=== PATIENT | female | born 1980 | race Hispanic/Latino ===

== ENCOUNTER 2017-09-09 00:33 | Observation (INO) | payer OTHER ==
--- OUTSIDE RECORDS SUMMARY | 2017-09-09 00:37 | XMS REPORT ---
:1980 [facility] Address [address] [place] [address] Care Team Providers Name Role Phone HAWA BHAKTA Unavailable Unavailable Problems This patient has no known problems. Allergies, Adverse Reactions, Alerts This patient has no known allergies or adverse reactions. Medications This patient has no known medications. Results Test Description Test Time Test Comments Text Results Atomic Results Result Comments HERPES VIRUS ANTIBODY, IGM 2017-01-11 21:46:00 Test Item Value Reference Range Comments HERPES VIRUS IGM (BEAKER) (test yzzf=4124) Negative SEE ATTACHMENT BLOOD [id number] 06:00:00 Test Item Value Reference Range Comments CULTURE (BEAKER) (test jkme=9164) No growth in 5 days BLOOD [id number] 06:00:00 Test Item Value Reference Range Comments CULTURE (BEAKER) (test ijyc=3601) No growth in 5 days POCT-GLUCOSE [id number] 12:11:00 Test Item Value Reference Range Comments POC-GLUCOSE METER (BEAKER) 154 mg/dL 70-110 TESTED AT [address] (test zcte=7281) [facility] [address] POCT-GLUCOSE [id number] 07:53:00 Test Item Value Reference Range Comments POC-GLUCOSE METER (BEAKER) 87 mg/dL 70-110 TESTED AT [address] (test hohr=8308) [facility] [address] POCT-GLUCOSE [id number] 06:49:00 Test Item Value Reference Range Comments POC-GLUCOSE METER (BEAKER) 79 mg/dL 70-110 TESTED AT [address] (test lyjy=4449) [facility] [address] COMPREHENSIVE METABOLIC [id number] 06:15:00 Test Item Value Reference Range Comments TOTAL PROTEIN (BEAKER) 5.1 gm/dL 6.0-8.3 (test uhhi=803) ALBUMIN (BEAKER) (test 2.2 g/dL 3.5-5.0 csle=7859) ALKALINE PHOSPHATASE 78 U/L 40-150 (BEAKER) (test fvpj=305) BILIRUBIN TOTAL (BEAKER) 1.1 mg/dL 0.2-1.2 (test wedq=430) SODIUM (BEAKER) (test 142 meq/L 136-145 iuxx=677) POTASSIUM (BEAKER) (test 3.6 meq/L 3.5-5.1 edvf=289) CHLORIDE (BEAKER) (test 106 meq/L 98-107 xgqn=764) CO2 (BEAKER) (test 27 meq/L 22-29 odkz=681) BLOOD UREA NITROGEN 29 mg/dL 7-21 (BEAKER) (test wega=660) CREATININE (BEAKER) (test 2.70 mg/dL 0.57-1.25 nnuq=429) GLUCOSE RANDOM (BEAKER) 79 mg/dL 70-105 (test xbfk=494) CALCIUM (BEAKER) (test 8.2 mg/dL 8.4-10.2 zsjk=731) AST (SGOT) (BEAKER) (test 256 U/L 5-34 mpoe=471) ALT (SGPT) (BEAKER) (test 513 U/L 6-55 brgj=014) EGFR (BEAKER) (test 20 mL/min/1.73 sq m ESTIMATED GFR IS NOT qbzu=7112) ACCURATE CREATININE CLEARANCE IN PREDICTING GLOMERULAR FILTRATION RATE. ESTIMATED GFR IS NOT APPLICABLE FOR DIALYSIS PATIENTS. [id number] 06:11:00 Test Item Value Reference Range Comments MAGNESIUM (BEAKER) (test smat=946) 2.1 mg/dL 1.6-2.6 HEPATIC FUNCTION [id number] 06:11:00 Test Item Value Reference Range Comments TOTAL PROTEIN (BEAKER) (test bczj=642) 5.1 gm/dL 6.0-8.3 ALBUMIN (BEAKER) (test kgzl=7807) 2.2 g/dL 3.5-5.0 BILIRUBIN TOTAL (BEAKER) (test iafh=321) 1.1 mg/dL 0.2-1.2 BILIRUBIN DIRECT (BEAKER) (test eymo=677) 0.7 mg/dL 0.1-0.5 ALKALINE PHOSPHATASE (BEAKER) (test ejfo=966) 78 U/L 40-150 AST (SGOT) (BEAKER) (test sveg=646) 256 U/L 5-34 ALT (SGPT) (BEAKER) (test gsbv=717) 513 U/L 6-55 [id number] 05:30:00 Test Item Value Reference Range Comments FIBRINOGEN LEVEL (BEAKER) (test dnfd=173) 368 mg/dl 225-434 [id number] 05:30:00 Test Item Value Reference Range Comments PARTIAL THROMBOPLASTIN TIME (BEAKER) (test 42.2 seconds 22.5-36.0 llur=478) PROTHROMBIN [id number] 05:29:00 Test Item Value Reference Range Comments PROTIME (BEAKER) (test oajm=373) 14.8 seconds 11.7-14.7 INR (BEAKER) (test utcr=592) 1.2 <=5.9 RECOMMENDED COUMADIN/WARFARIN INR THERAPY RANGESSTANDARD DOSE: 2.0 - 3.0 Includes: PROPHYLAXIS forvenous thrombosis, systemic embolization; TREATMENT for venous thrombosis and/or pulmonary embolus.HIGH RISK: Target INR is 2.5-3.5 for patients with mechanical heart valves.POCT-GLUCOSE [id number] 21:09:00 Test Item Value Reference Range Comments POC-GLUCOSE METER (BEAKER) 178 mg/dL 70-110 TESTED AT [address] (test wcsw=2286) [place] [address] POCT-GLUCOSE [id number] 17:18:00 Test Item Value Reference Range Comments POC-GLUCOSE METER (BEAKER) 178 mg/dL 70-110 TESTED AT [address] (test wvcd=9392) [place] [address] POCT-GLUCOSE [id number] 13:48:00 Test Item Value Reference Range Comments POC-GLUCOSE METER (BEAKER) 150 mg/dL 70-110 TESTED AT [address] (test tbqa=9086) [place] [address] FACTOR 5 ACTIVITY (BLEEDING RISK)2017-01-06 10:04:00 Test Item Value Reference Range Comments FACTOR V ACTIVITY (BEAKER) (test flez=420) 90.0 % 60.0-150.0 Effective 10/24/2013: Reference Range Change-Adult onlyNew: 60.0-150.0 Previous : 50.0-150.0CYTOMEGALOVIRUS ANTIBODY, [id number] 09:42:00 Test Item Value Reference Range Comments CYTOMEGALOVIRUS IGM ANTIBODY (BEAKER) (test Negative qfwr=561) HERPES VIRUS ANTIBODY, [id number] 08:59:00 Test Item Value Reference Range Comments HERPES VIRUS IGG (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 euts=3438) CYTOMEGALOVIRUS ANTIBODY, [id number] 08:59:00 Test Item Value Reference Range Comments CYTOMEGALOVIRUS IGG ANTIBODY (BEAKER) (test Positive diwh=915) EBV-VCA ANTIBODY, [id number] 08:59:00 Test Item Value Reference Range Comments JASE-WALL VCA IGG (BEAKER) (test alyu=748) Positive EBV-VCA ANTIBODY, [id number] 08:59:00 Test Item Value Reference Range Comments JASE-WALL VCA IGM (BEAKER) (test pjxl=757) Negative POCT-GLUCOSE [id number] 07:59:00 Test Item Value Reference Range Comments POC-GLUCOSE METER (BEAKER) 81 mg/dL 70-110 TESTED AT [facility] [address] [facility] (test bzcu=9438) [facility] [address] COMPREHENSIVE METABOLIC [id number] 06:23:00 Test Item Value Reference Range Comments TOTAL PROTEIN (BEAKER) 5.3 gm/dL 6.0-8.3 (test ndru=531) ALBUMIN (BEAKER) (test 2.4 g/dL 3.5-5.0 zfbo=3541) ALKALINE PHOSPHATASE 85 U/L 40-150 (BEAKER) (test zwoy=352) BILIRUBIN TOTAL (BEAKER) 1.5 mg/dL 0.2-1.2 (test upza=615) SODIUM (BEAKER) (test 142 meq/L 136-145 xxfz=203) POTASSIUM (BEAKER) (test 3.5 meq/L 3.5-5.1 oemb=669) CHLORIDE (BEAKER) (test 103 meq/L 98-107 mxpt=455) CO2 (BEAKER) (test 27 meq/L 22-29 fdxm=418) BLOOD UREA NITROGEN 30 mg/dL 7-21 (BEAKER) (test gjel=563) CREATININE (BEAKER) (test 3.00 mg/dL 0.57-1.25 psqq=621) GLUCOSE RANDOM (BEAKER) 99 mg/dL 70-105 (test hbsv=218) CALCIUM (BEAKER) (test 8.7 mg/dL 8.4-10.2 gwyr=542) AST (SGOT) (BEAKER) (test 364 U/L 5-34 ghlo=312) ALT (SGPT) (BEAKER) (test 779 U/L 6-55 zggk=711) EGFR (BEAKER) (test 18 mL/min/1.73 sq m ESTIMATED GFR IS NOT slzf=1655) ACCURATE CREATININE CLEARANCE IN PREDICTING GLOMERULAR FILTRATION RATE. ESTIMATED GFR IS NOT APPLICABLE FOR DIALYSIS PATIENTS. [id number] 06:17:00 Test Item Value Reference Range Comments MAGNESIUM (BEAKER) (test dctu=247) 1.8 mg/dL 1.6-2.6 HEPATIC FUNCTION [id number] 06:17:00 Test Item Value Reference Range Comments TOTAL PROTEIN (BEAKER) (test fsmu=837) 5.3 gm/dL 6.0-8.3 ALBUMIN (BEAKER) (test nyya=3340) 2.4 g/dL 3.5-5.0 BILIRUBIN TOTAL (BEAKER) (test nlnl=738) 1.5 mg/dL 0.2-1.2 BILIRUBIN DIRECT (BEAKER) (test syks=191) 1.0 mg/dL 0.1-0.5 ALKALINE PHOSPHATASE (BEAKER) (test qkjs=532) 85 U/L 40-150 AST (SGOT) (BEAKER) (test bqei=187) 364 U/L 5-34 ALT (SGPT) (BEAKER) (test rucs=366) 779 U/L 6-55 [id number] 06:00:00 Test Item Value Reference Range Comments FIBRINOGEN LEVEL (BEAKER) (test gnun=388) 390 mg/dl 225-434 [id number] 06:00:00 Test Item Value Reference Range Comments PARTIAL THROMBOPLASTIN TIME (BEAKER) (test 40.2 seconds 22.5-36.0 ygkn=099) PROTHROMBIN [id number] 05:59:00 Test Item Value Reference Range Comments PROTIME (BEAKER) (test kyvx=278) 14.6 seconds 11.7-14.7 INR (BEAKER) (test hylo=990) 1.2 <=5.9 RECOMMENDED COUMADIN/WARFARIN INR THERAPY RANGESSTANDARD DOSE: 2.0 - 3.0 Includes: PROPHYLAXIS forvenous thrombosis, systemic embolization; TREATMENT for venous thrombosis and/or pulmonary embolus.HIGH RISK: Target INR is 2.5-3.5 for patients with mechanical heart valves.POCT-GLUCOSE [id number] 21:46:00 Test Item Value Reference Range Comments POC-GLUCOSE METER (BEAKER) 153 mg/dL 70-110 TESTED AT [address] (test xydy=0908) [facility] [address] POCT-GLUCOSE [id number] 18:47:00 Test Item Value Reference Range Comments POC-GLUCOSE METER (BEAKER) 181 mg/dL 70-110 TESTED AT [address] (test ngdj=5829) [place] [id number] POCT-GLUCOSE [id number] 12:40:00 Test Item Value Reference Range Comments POC-GLUCOSE METER (BEAKER) 178 mg/dL 70-110 TESTED AT [address] (test vurn=9417) [facility] [address] POCT-GLUCOSE [id number] 07:51:00 Test Item Value Reference Range Comments POC-GLUCOSE METER (BEAKER) 166 mg/dL 70-110 TESTED AT [address] (test jfmx=0274) [facility] [address] COMPREHENSIVE METABOLIC [id number] 03:26:00 Test Item Value Reference Range Comments TOTAL PROTEIN (BEAKER) 5.2 gm/dL 6.0-8.3 (test rozj=037) ALBUMIN (BEAKER) (test 2.3 g/dL 3.5-5.0 btit=8550) ALKALINE PHOSPHATASE 72 U/L 40-150 (BEAKER) (test sjjq=227) BILIRUBIN TOTAL (BEAKER) 2.0 mg/dL 0.2-1.2 (test kcwf=625) SODIUM (BEAKER) (test 140 meq/L 136-145 gctz=387) POTASSIUM (BEAKER) (test 3.3 meq/L 3.5-5.1 atvs=149) CHLORIDE (BEAKER) (test 99 meq/L 98-107 ehib=778) CO2 (BEAKER) (test 29 meq/L 22-29 rcqm=291) BLOOD UREA NITROGEN 35 mg/dL 7-21 (BEAKER) (test ylcj=392) CREATININE (BEAKER) (test 3.44 mg/dL 0.57-1.25 nuko=062) GLUCOSE RANDOM (BEAKER) 151 mg/dL 70-105 (test lcza=300) CALCIUM (BEAKER) (test 8.6 mg/dL 8.4-10.2 xrmo=176) AST (SGOT) (BEAKER) (test 506 U/L 5-34 cmbe=927) ALT (SGPT) (BEAKER) (test 1009 U/L 6-55 vrrw=436) EGFR (BEAKER) (test 15 mL/min/1.73 sq m ESTIMATED GFR IS NOT drnn=4255) ACCURATE CREATININE CLEARANCE IN PREDICTING GLOMERULAR FILTRATION RATE. ESTIMATED GFR IS NOT APPLICABLE FOR DIALYSIS PATIENTS. [id number] 03:22:00 Test Item Value Reference Range Comments MAGNESIUM (BEAKER) (test ypib=884) 1.4 mg/dL 1.6-2.6 HEPATIC FUNCTION [id number] 03:22:00 Test Item Value Reference Range Comments TOTAL PROTEIN (BEAKER) (test vmzu=048) 5.2 gm/dL 6.0-8.3 ALBUMIN (BEAKER) (test gpip=3853) 2.3 g/dL 3.5-5.0 BILIRUBIN TOTAL (BEAKER) (test epeu=798) 2.0 mg/dL 0.2-1.2 BILIRUBIN DIRECT (BEAKER) (test qzlp=040) 1.3 mg/dL 0.1-0.5 ALKALINE PHOSPHATASE (BEAKER) (test tjyz=233) 72 U/L 40-150 AST (SGOT) (BEAKER) (test ernn=963) 506 U/L 5-34 ALT (SGPT) (BEAKER) (test wcnn=158) 1009 U/L 6-55 [id number] 03:12:00 Test Item Value Reference Range Comments AMMONIA (BEAKER) (test chlc=038) 29 mol/L 18-72 [id number] 03:10:00 Test Item Value Reference Range Comments PARTIAL THROMBOPLASTIN TIME (BEAKER) (test 42.3 seconds 22.5-36.0 eqcb=207) PROTHROMBIN [id number] 03:09:00 Test Item Value Reference Range Comments PROTIME (BEAKER) (test fucx=325) 16.4 seconds 11.7-14.7 INR (BEAKER) (test cobo=636) 1.3 <=5.9 RECOMMENDED COUMADIN/WARFARIN INR THERAPY RANGESSTANDARD DOSE: 2.0 - 3.0 Includes: PROPHYLAXIS forvenous thrombosis, systemic embolization; TREATMENT for venous thrombosis and/or pulmonary embolus.HIGH RISK: Target INR is 2.5-3.5 for patients with mechanical heart valves.[id number] 03:09:00 Test Item Value Reference Range Comments FIBRINOGEN LEVEL (BEAKER) (test fuov=731) 413 mg/dl 225-434 CBC W/PLT COUNT & AUTO [id number] 03:09:00 Test Item Value Reference Range Comments WHITE BLOOD CELL COUNT (BEAKER) (test uclz=361) 2.9 K/ L 4.0-10.0 RED BLOOD CELL COUNT (BEAKER) (test ceea=227) 3.10 M/ L 4.00-5.00 HEMOGLOBIN (BEAKER) (test kqpm=128) 9.5 GM/DL 12.0-15.0 HEMATOCRIT (BEAKER) (test oovg=367) 29.2 % 36.0-45.0 MEAN CORPUSCULAR VOLUME (BEAKER) (test elrc=163) 94.4 fL 82.0-99.0 MEAN CORPUSCULAR HEMOGLOBIN (BEAKER) (test 30.8 pg 27.0-33.0 eqrw=859) MEAN CORPUSCULAR HEMOGLOBIN CONC (BEAKER) (test 32.6 GM/DL 32.0-36.0 hqax=324) RED CELL DISTRIBUTION WIDTH (BEAKER) (test 15.2 % 10.3-14.2 rlbl=613) PLATELET COUNT (BEAKER) (test krxf=596) 118 K/CU MM 150-430 MEAN PLATELET VOLUME (BEAKER) (test uwjc=735) 9.2 fL 6.5-10.5 NUCLEATED RED BLOOD CELLS (BEAKER) (test 0 /100 WBC 0-0 hzck=550) NEUTROPHILS RELATIVE PERCENT (BEAKER) (test 59 % kzpb=291) LYMPHOCYTES RELATIVE PERCENT (BEAKER) (test 27 % ozah=205) MONOCYTES RELATIVE PERCENT (BEAKER) (test 10 % xwcf=656) EOSINOPHILS RELATIVE PERCENT (BEAKER) (test 4 % fnrw=239) BASOPHILS RELATIVE PERCENT (BEAKER) (test 1 % kdzz=835) NEUTROPHILS ABSOLUTE COUNT (BEAKER) (test 1.71 K/ L 1.80-8.00 jrcz=942) LYMPHOCYTES ABSOLUTE COUNT (BEAKER) (test 0.78 K/ L 1.48-4.50 rplc=358) MONOCYTES ABSOLUTE COUNT (BEAKER) (test 0.29 K/ L 0.00-1.30 bzsv=082) EOSINOPHILS ABSOLUTE COUNT (BEAKER) (test 0.11 K/ L 0.00-0.50 nizl=023) BASOPHILS ABSOLUTE COUNT (BEAKER) (test 0.02 K/ L 0.00-0.20 tvua=108) 0.00POCT-GLUCOSE [id number] 22:33:00 Test Item Value Reference Range Comments POC-GLUCOSE METER (BEAKER) 230 mg/dL 70-110 TESTED AT [address] (test dujs=1973) [place] [id number] POCT-GLUCOSE [id number] 18:17:00 Test Item Value Reference Range Comments POC-GLUCOSE METER (BEAKER) 222 mg/dL 70-110 TESTED AT [address] (test rsyu=9873) [place] [id number] COMPREHENSIVE METABOLIC [id number] 16:59:00 Test Item Value Reference Range Comments TOTAL PROTEIN (BEAKER) 4.9 gm/dL 6.0-8.3 (test nicg=487) ALBUMIN (BEAKER) (test 2.2 g/dL 3.5-5.0 nlyp=9578) ALKALINE PHOSPHATASE 71 U/L 40-150 (BEAKER) (test tlda=629) BILIRUBIN TOTAL (BEAKER) 2.2 mg/dL 0.2-1.2 (test vznz=604) SODIUM (BEAKER) (test 140 meq/L 136-145 sasg=288) POTASSIUM (BEAKER) (test 3.3 meq/L 3.5-5.1 rifi=083) CHLORIDE (BEAKER) (test 99 meq/L 98-107 brgk=614) CO2 (BEAKER) (test 28 meq/L 22-29 hbrn=990) BLOOD UREA NITROGEN 36 mg/dL 7-21 (BEAKER) (test bogq=474) CREATININE (BEAKER) (test 3.57 mg/dL 0.57-1.25 fkqt=864) GLUCOSE RANDOM (BEAKER) 199 mg/dL 70-105 (test hwva=348) CALCIUM (BEAKER) (test 8.5 mg/dL 8.4-10.2 lhho=696) AST (SGOT) (BEAKER) (test 640 U/L 5-34 fayx=945) ALT (SGPT) (BEAKER) (test 1071 U/L 6-55 bowg=114) EGFR (BEAKER) (test 15 mL/min/1.73 sq m ESTIMATED GFR IS NOT iazk=3337) ACCURATE CREATININE CLEARANCE IN PREDICTING GLOMERULAR FILTRATION RATE. ESTIMATED GFR IS NOT APPLICABLE FOR DIALYSIS PATIENTS. PERIPHERAL BLOOD SMEAR - PATHOLOGIST [id number] 15:30:00 Test Item Value Reference Range Comments RBC MORPHOLOGY (BEAKER) (test Polychromasia wpzw=8856) RBC MORPHOLOGY (BEAKER) (test Anisocytosis fasi=81357) PERIPHERAL SMR REVIEW Cell counts confirmed (BEAKER) (test odlo=5374) [id number] Joesfina Lara M.D. (BEAKER) (test wrai=2592) (electronic signature) PROTHROMBIN [id number] 15:12:00 Test Item Value Reference Range Comments PROTIME (BEAKER) (test ypha=832) 16.6 seconds 11.7-14.7 INR (BEAKER) (test wjtj=250) 1.4 <=5.9 RECOMMENDED COUMADIN/WARFARIN INR THERAPY RANGESSTANDARD DOSE: 2.0 - 3.0 Includes: PROPHYLAXIS forvenous thrombosis, systemic embolization; TREATMENT for venous thrombosis and/or pulmonary embolus.HIGH RISK: Target INR is 2.5-3.5 for patients with mechanical heart valves.ANTI-NUCLEAR ANTIBODY (IVETTE)2017-01-04 14:32:00 Test Item Value Reference Range Comments ANTI-NUCLEAR ANTIBODY (IVETTE) (BEAKER) (test Negative Negative kqol=628) POCT-GLUCOSE [id number] 12:47:00 Test Item Value Reference Range Comments POC-GLUCOSE METER (BEAKER) 212 mg/dL 70-110 TESTED AT [facility] [address] [place] [address] (test lzbw=6318) [facility] [address] [id number] 12:34:00 Test Item Value Reference Range Comments RPR SCREEN (Kasumi-sou) (test qnyq=751) Nonreactive Nonreactive CLOSTRIDIUM DIFFICILE TOXIN [id number] 10:12:00 Test Item Value Reference Range Comments CLOSTRIDIUM DIFFICILE TOXIN, PCR (Kasumi-sou) (test Not Detected Not Detected ccsz=3234) This qualitative real-time polymerase chain reaction assay detects the tcdB gene , encoded on the C.difficile pathogenicity locus (PaLoc). The product of tcdB, toxin B, is a cytotoxin essential for causing C.difficile-associated disease ( CDAD) and is found in virtually all toxigenic C.difficile.This assay is performed for patients suspected of having either community-acquired or nosocomial CDAD. Accordingly, only symptomatic patients should be tested and formed stools will be rejected unless ileus is present (i.e., specified when ordering). Patients may be colonized with toxigenic C.difficile strains not causing active disease; therefore, clinical correlation is needed when deciding how to manage patients with a positive test result.The assay has not been validated as a test of cure as amplifiable nucleic acid may persist after effective treatment; therefore, follow-up testing of a positive result is not recommended.FACTOR 5 ACTIVITY (BLEEDING RISK)2017-01-04 09:15:00 Test Item Value Reference Range Comments FACTOR V ACTIVITY (BEAKER) (test ukaz=767) 86.0 % 60.0-150.0 Effective 10/24/2013: Reference Range Change-Adult onlyNew: 60.0-150.0 Previous : 50.0-150.0FACTOR 5 ACTIVITY (BLEEDING RISK)2017-01-04 09:13:00 Test Item Value Reference Range Comments FACTOR V ACTIVITY (BEAKER) (test pdqk=852) 56.0 % 60.0-150.0 Effective 10/24/2013: Reference Range Change-Adult onlyNew: 60.0-150.0 Previous : 50.0-150.0POCT-GLUCOSE [id number] 06:40:00 Test Item Value Reference Range Comments POC-GLUCOSE METER (VideostirAKER) 167 mg/dL 70-110 TESTED AT [facility] [address] [facility] (test dmqu=0741) [facility] [address] COMPREHENSIVE METABOLIC [id number] 04:08:00 Test Item Value Reference Range Comments TOTAL PROTEIN (BEAKER) 4.7 gm/dL 6.0-8.3 (test peid=761) ALBUMIN (BEAKER) (test 2.1 g/dL 3.5-5.0 apcd=4159) ALKALINE PHOSPHATASE 71 U/L 40-150 (BEAKER) (test syjg=850) BILIRUBIN TOTAL (BEAKER) 2.6 mg/dL 0.2-1.2 (test pedq=605) SODIUM (BEAKER) (test 140 meq/L 136-145 tnfv=775) POTASSIUM (BEAKER) (test 2.8 meq/L 3.5-5.1 cnzc=667) CHLORIDE (BEAKER) (test 95 meq/L 98-107 qttm=564) CO2 (BEAKER) (test 31 meq/L 22-29 srqi=547) BLOOD UREA NITROGEN 39 mg/dL 7-21 (BEAKER) (test gsve=595) CREATININE (BEAKER) (test 4.10 mg/dL 0.57-1.25 pscg=487) GLUCOSE RANDOM (BEAKER) 155 mg/dL 70-105 (test lhdl=653) CALCIUM (BEAKER) (test 8.2 mg/dL 8.4-10.2 axxz=529) AST (SGOT) (BEAKER) (test 846 U/L 5-34 zsvx=539) ALT (SGPT) (BEAKER) (test 1091 U/L 6-55 ttsd=697) EGFR (BEAKER) (test mL/min/1.73 sq m INSUFFICIENT CLINICAL DATA kesi=9225) TO CALCULATE ESTIMATED GFR. Specimen slightly ictericHEPATIC FUNCTION [id number] 04:06:00 Test Item Value Reference Range Comments TOTAL PROTEIN (BEAKER) (test qits=245) 4.7 gm/dL 6.0-8.3 ALBUMIN (BEAKER) (test cuzc=7208) 2.1 g/dL 3.5-5.0 BILIRUBIN TOTAL (BEAKER) (test eqhe=686) 2.6 mg/dL 0.2-1.2 BILIRUBIN DIRECT (BEAKER) (test igpb=450) 1.8 mg/dL 0.1-0.5 ALKALINE PHOSPHATASE (BEAKER) (test qfts=427) 71 U/L 40-150 AST (SGOT) (BEAKER) (test ovtw=856) 846 U/L 5-34 ALT (SGPT) (BEAKER) (test bzei=100) 1091 U/L 6-55 Specimen slightly [id number] 04:01:00 Test Item Value Reference Range Comments FIBRINOGEN LEVEL (BEAKER) (test cfpj=638) 379 mg/dl 225-434 [id number] 04:01:00 Test Item Value Reference Range Comments PARTIAL THROMBOPLASTIN TIME (BEAKER) (test 40.7 seconds 22.5-36.0 cara=944) PROTHROMBIN [id number] 04:00:00 Test Item Value Reference Range Comments PROTIME (BEAKER) (test blcw=665) 18.7 seconds 11.7-14.7 INR (BEAKER) (test udsp=236) 1.6 <=5.9 RECOMMENDED COUMADIN/WARFARIN INR THERAPY RANGESSTANDARD DOSE: 2.0 - 3.0 Includes: PROPHYLAXIS forvenous thrombosis, systemic embolization; TREATMENT for venous thrombosis and/or pulmonary embolus.HIGH RISK: Target INR is 2.5-3.5 for patients with mechanical heart valves.CBC W/PLT COUNT & AUTO [id number] 03:56:00 Test Item Value Reference Range Comments WHITE BLOOD CELL COUNT (BEAKER) (test ujbc=114) 3.1 K/ L 4.0-10.0 RED BLOOD CELL COUNT (BEAKER) (test iftn=314) 2.85 M/ L 4.00-5.00 HEMOGLOBIN (BEAKER) (test xdjl=681) 8.8 GM/DL 12.0-15.0 HEMATOCRIT (BEAKER) (test dabr=612) 26.6 % 36.0-45.0 MEAN CORPUSCULAR VOLUME (BEAKER) (test rvxl=078) 93.4 fL 82.0-99.0 MEAN CORPUSCULAR HEMOGLOBIN (BEAKER) (test 30.9 pg 27.0-33.0 msji=883) MEAN CORPUSCULAR HEMOGLOBIN CONC (BEAKER) (test 33.0 GM/DL 32.0-36.0 gfap=565) RED CELL DISTRIBUTION WIDTH (BEAKER) (test 14.9 % 10.3-14.2 pqei=680) PLATELET COUNT (BEAKER) (test glnc=414) 98 K/CU MM 150-430 MEAN PLATELET VOLUME (BEAKER) (test jozg=931) 9.1 fL 6.5-10.5 NUCLEATED RED BLOOD CELLS (BEAKER) (test 0 /100 WBC 0-0 uilj=085) NEUTROPHILS RELATIVE PERCENT (BEAKER) (test 55 % syhj=591) LYMPHOCYTES RELATIVE PERCENT (BEAKER) (test 27 % bzyj=867) MONOCYTES RELATIVE PERCENT (BEAKER) (test 12 % dfzn=054) EOSINOPHILS RELATIVE PERCENT (BEAKER) (test 5 % erpz=998) BASOPHILS RELATIVE PERCENT (BEAKER) (test 1 % ocbj=811) NEUTROPHILS ABSOLUTE COUNT (BEAKER) (test 1.71 K/ L 1.80-8.00 hyzp=511) LYMPHOCYTES ABSOLUTE COUNT (BEAKER) (test 0.83 K/ L 1.48-4.50 xqdi=105) MONOCYTES ABSOLUTE COUNT (BEAKER) (test mcad=962) 0.38 K/ L 0.00-1.30 EOSINOPHILS ABSOLUTE COUNT (BEAKER) (test 0.14 K/ L 0.00-0.50 dizg=322) BASOPHILS ABSOLUTE COUNT (BEAKER) (test akpz=570) 0.02 K/ L 0.00-0.20 0.00POCT-GLUCOSE [id number] 00:19:00 Test Item Value Reference Range Comments POC-GLUCOSE METER (BEAKER) 159 mg/dL 70-110 TESTED AT [address] (test xgme=1870) [place] [id number] POCT-GLUCOSE [id number] 18:56:00 Test Item Value Reference Range Comments POC-GLUCOSE METER (BEAKER) 192 mg/dL 70-110 TESTED AT [address] (test jwuh=4659) [place] [id number] COMPREHENSIVE METABOLIC [id number] 16:55:00 Test Item Value Reference Range Comments TOTAL PROTEIN (BEAKER) 4.5 gm/dL 6.0-8.3 (test dgtn=437) ALBUMIN (BEAKER) (test 2.0 g/dL 3.5-5.0 hzwk=4857) ALKALINE PHOSPHATASE 74 U/L 40-150 (BEAKER) (test rfnf=904) BILIRUBIN TOTAL (BEAKER) 2.9 mg/dL 0.2-1.2 (test tdlp=824) SODIUM (BEAKER) (test 142 meq/L 136-145 qycs=863) POTASSIUM (BEAKER) (test 3.0 meq/L 3.5-5.1 uipf=218) CHLORIDE (BEAKER) (test 95 meq/L 98-107 egzl=693) CO2 (BEAKER) (test 33 meq/L 22-29 ohdv=369) BLOOD UREA NITROGEN 45 mg/dL 7-21 (BEAKER) (test vixr=730) CREATININE (BEAKER) (test 4.87 mg/dL 0.57-1.25 nypx=332) GLUCOSE RANDOM (BEAKER) 177 mg/dL 70-105 (test vfbx=397) CALCIUM (BEAKER) (test 8.4 mg/dL 8.4-10.2 xqxv=758) AST (SGOT) (BEAKER) (test 1283 U/L 5-34 tioj=905) ALT (SGPT) (BEAKER) (test 1314 U/L 6-55 zxyw=962) EGFR (BEAKER) (test mL/min/1.73 sq m INSUFFICIENT CLINICAL DATA izmt=7998) TO CALCULATE ESTIMATED GFR. Specimen slightly ictericPROTHROMBIN [id number] 16:37:00 Test Item Value Reference Range Comments PROTIME (BEAKER) (test iwbs=772) 20.9 seconds 11.7-14.7 INR (BEAKER) (test xzgu=289) 1.8 <=5.9 RECOMMENDED COUMADIN/WARFARIN INR THERAPY RANGESSTANDARD DOSE: 2.0 - 3.0 Includes: PROPHYLAXIS forvenous thrombosis, systemic embolization; TREATMENT for venous thrombosis and/or pulmonary embolus.HIGH RISK: Target INR is 2.5-3.5 for patients with mechanical heart valves.HEPATITIS B SURFACE [id number] 14:05:00 Test Item Value Reference Range Comments HEPATITIS B SURFACE ANTIBODY (BEAKER) (test < mIU/mL <8.0 mimj=956) HEPATITIS B CORE ANTIBODY, [id number] 13:43:00 Test Item Value Reference Range Comments HEPATITIS B CORE TOTAL ANTIBODY (BEAKER) (test Nonreactive Nonreactive tkcy=371) BLOOD GAS, [id number] 13:35:00 Test Item Value Reference Range Comments PH ARTERIAL (BEAKER) (test znhn=663) 7.44 7.35-7.45 PCO2 ARTERIAL (BEAKER) (test uwuu=889) 55 mmHg 35-45 PO2 ARTERIAL (BEAKER) (test qwys=485) 99 mmHg 80-90 O2 SATURATION ARTERIAL (BEAKER) (test awrh=168) 97.4 % 96.0-97.0 HCO3 ARTERIAL (BEAKER) (test fdff=938) 36 mmol/L 21-29 BASE EXCESS ARTERIAL (BEAKER) (test tqdd=805) 10.3 mmol/L -2.0-3.0 PATIENT TEMPERATURE (BEAKER) (test hoyh=1939) 37.5 C FIO2 (BEAKER) (test kuzt=7461) 28.0 % URINALYSIS W/ [id number] 13:16:00 Test Item Value Reference Range Comments COLOR (BEAKER) (test uzbo=977) Yellow CLARITY (BEAKER) (test exfg=098) Clear SPECIFIC GRAVITY UA (BEAKER) (test qseq=565) 1.013 1.001-1.035 PH UA (BEAKER) (test zweo=301) 6.0 5.0-8.0 PROTEIN UA (BEAKER) (test jyvc=772) 300 mg/dL Negative GLUCOSE UA (BEAKER) (test alft=170) 30 mg/dL Negative KETONES UA (BEAKER) (test fbwg=644) Trace Negative BILIRUBIN UA (BEAKER) (test mogg=752) Positive Negative BLOOD UA (BEAKER) (test jnmd=473) Moderate Negative NITRITE UA (BEAKER) (test pfwa=011) Negative Negative LEUKOCYTE ESTERASE UA (BEAKER) (test irpu=086) Moderate Negative UROBILINOGEN UA (BEAKER) (test hpht=016) 2.0 mg/dL 0.2-1.0 RBC UA (BEAKER) (test hacb=811) 2 /HPF WBC UA (BEAKER) (test gudn=004) 41 /HPF HYALINE CASTS (BEAKER) (test bpdf=315) 10 /LPF AMORPHOUS CRYSTALS (BEAKER) (test urbz=0814) Rare SOURCE(BEAKER) (test trum=1462) Urine, [place] VITAMIN D, 77-[id number] 13:14:00 Test Item Value Reference Range Comments VITAMIN D 25-OH (BEAKER) (test umyt=6913) < ng/mL 13.0-47.8 ALPHA FETOPROTEIN (AFP), TUMOR [id number] 13:06:00 Test Item Value Reference Range Comments ALPHA-FETOPROTEIN (BEAKER) (test vhmx=2993) < ng/mL <10.0 Effective 05/08/2014: Reference Range ChangeNew: <10.0 Previous: 0.0- 8.0HEMOGLOBIN [id number] 13:05:00 Test Item Value Reference Range Comments HEMOGLOBIN A1C (BEAKER) (test gphg=944) 7.6 % 4.3-6.1 CARCINOEMBRYONIC ANTIGEN (CEA)2017-01-03 12:59:00 Test Item Value Reference Range Comments CARCINOEMBRYONIC ANTIGEN (BEAKER) (test lrfv=256) 2.0 ng/mL 0.0-5.0 [id number] 12:59:00 Test Item Value Reference Range Comments FERRITIN (BEAKER) (test vnoi=899) 1841 ng/mL 5-275 Effective 05/08/2014: Reference Range ChangeNew: Male 5-275 Previous: Male 22-322 Female 5-275 Female [id number] 12:58:00 Test Item Value Reference Range Comments T4 TOTAL (BEAKER) (test fjcg=723) 4.5 ug/dL 4.9-11.7 [id number] 12:58:00 Test Item Value Reference Range Comments THYROID STIMULATING HORMONE (BEAKER) (test 1.79 uIU/mL 0.35-4.94 aaea=774) [id number] 12:58:00 Test Item Value Reference Range Comments T3 TOTAL (BEAKER) (test fpsl=702) 34 ng/dL 48-159 Effective 05/08/2014: Reference Range ChangeNew: 48-159 Previous: 60- 181CALCIUM, [id number] 12:47:00 Test Item Value Reference Range Comments CALCIUM IONIZED (BEAKER) (test oamg=571) 1.05 mmol/L 1.12-1.27 PH, BLOOD (BEAKER) (test hbrb=4174) 7.43 [id number] 12:42:00 Test Item Value Reference Range Comments TRANSFERRIN (BEAKER) (test sqit=234) 128 mg/dL 174-382 Specimen slightly ictericIRON, TIBC, % SAT. (WITHOUT FERRITIN)2017-01-03 12:42: 00 Test Item Value Reference Range Comments IRON (BEAKER) (test vxum=657) 59 ug/dL 40-160 TOTAL IRON BINDING CAPACITY (BEAKER) (test 160 ug/dL 250-450 ryfd=366) IRON % SATURATION (2) (BEAKER) (test yuzy=3172) 37 % 20-55 URIC [id number] 12:40:00 Test Item Value Reference Range Comments URIC ACID (BEAKER) (test hkcd=047) 16.0 mg/dL 2.6-7.2 Specimen slightly ictericLIPID [id number] 12:40:00 Test Item Value Reference Range Comments TRIGLYCERIDES (BEAKER) (test odek=433) 134 mg/dL CHOLESTEROL (BEAKER) (test osxn=600) 120 mg/dL HDL CHOLESTEROL (BEAKER) (test gvun=885) 7 mg/dL LDL CHOLESTEROL CALCULATED (BEAKER) (test 86 mg/dL lalk=069) Triglyceride Reference Range: Low Risk <150 Borderline 150- 199 High Risk 200-499 Very High Risk >=500Cholesterol Reference Range: Low Risk <200 Borderline 200-239 High Risk > 240HDL Cholesterol Reference Range: Low Risk >=60 High Risk <40LDL Cholesterol Reference Range: Optimal <100 Near Optimal 100-129 Borderline 130-159 High 160-189 Very High >=190 Specimen slightly ictericBILIRUBIN, [id number] 12:40:00 Test Item Value Reference Range Comments BILIRUBIN DIRECT (BEAKER) (test kxcb=399) 2.4 mg/dL 0.1-0.5 GAMMA GLUTAMYL TRANSFERASE (GGT)2017-01-03 12:40:00 Test Item Value Reference Range Comments GAMMA GLUTAMYL TRANSFERASE (BEAKER) (test ekuv=928) 53 U/L 9-64 Specimen slightly [id number] 12:39:00 Test Item Value Reference Range Comments ETHANOL (BEAKER) (test ggaz=589) < mg/dL <=10 SCREEN, [id number] 12:36:00 Test Item Value Reference Range Comments TEST URINE (BEAKER) (test kzyn=679) Negative POCT-GLUCOSE [id number] 12:34:00 Test Item Value Reference Range Comments POC-GLUCOSE METER (MADIE) 189 mg/dL 70-110 TESTED AT [facility] [address] (test rkcp=2148) [facility] [address] HIV-1 ANTIGEN WITH HIV-1/2 [id number] 11:58:00 Test Item Value Reference Range Comments HIV-1 ANTIGEN WITH HIV 1\T\2 ANTIBODY (2) Nonreactive Nonreactive (BEAKER) (test wcew=9260) TROPONIN [id number] 09:44:00 Test Item Value Reference Range Comments TROPONIN I (BEAKER) (test gook=039) 0.34 ng/mL 0.00-0.03 Effective 05/08/2014: Reference Range ChangeNew: 0.00-0.03 Previous 0.00- 0.15Troponin I (TnI) levels must be interpreted in the context of the presenting symptoms and the clinical findings. Elevated TnI levels indicate myocardial damage, but are not specific for ischemic heart disease. Elevated TnI levels are seen in patients with other cardiac conditions (including myocarditis and congestive heartfailure), and slight TnI elevations occur in patients with other conditions, including sepsis, renalfailure, acidosis, acute neurological disease, and persistent tachyarrhythmia.CREATINE KINASE (CK), TOTAL AND [id number] 09:43:00 Test Item Value Reference Range Comments CREATINE KINASE TOTAL (BEAKER) (test bpvz=324) 301 U/L 29-200 CREATINE KINASE-MB (BEAKER) (test heuz=853) 5.6 ng/mL 0.0-6.6 CREATINE KINASE-MB INDEX (BEAKER) (test qmlj=686) 1.9 % Effective 05/08/2014: CK-MB Reference Range ChangeNew: 0.0-6.6 Previous: 0.0- 4.9CK-MB Reference Range:<6.7 Normal6.7-10.0 Borderline>10.0 AbnormalACETAMINOPHEN [id number] 08:31:00 Test Item Value Reference Range Comments ACETAMINOPHEN LEVEL (BEAKER) (test wixy=335) < ug/mL 10.0-30.0 TROPONIN [id number] 05:53:00 Test Item Value Reference Range Comments TROPONIN I (BEAKER) (test fcml=176) 0.33 ng/mL 0.00-0.03 Effective 05/08/2014: Reference Range ChangeNew: 0.00-0.03 Previous 0.00- 0.15Troponin I (TnI) levels must be interpreted in the context of the presenting symptoms and the clinical findings. Elevated TnI levels indicate myocardial damage, but are not specific for ischemic heart disease. Elevated TnI levels are seen in patients with other cardiac conditions (including myocarditis and congestive heartfailure), and slight TnI elevations occur in patients with other conditions, including sepsis, renalfailure, acidosis, acute neurological disease, and persistent tachyarrhythmia.BASIC METABOLIC [id number] 05:53:00 Test Item Value Reference Range Comments SODIUM (BEAKER) (test 144 meq/L 136-145 lknj=897) POTASSIUM (BEAKER) (test 2.8 meq/L 3.5-5.1 gveg=312) CHLORIDE (BEAKER) (test 95 meq/L 98-107 eagi=522) CO2 (BEAKER) (test 35 meq/L 22-29 tmuh=018) BLOOD UREA NITROGEN 49 mg/dL 7-21 (BEAKER) (test fzih=151) CREATININE (BEAKER) (test 5.61 mg/dL 0.57-1.25 gbxq=287) GLUCOSE RANDOM (BEAKER) 138 mg/dL 70-105 (test krwd=476) CALCIUM (BEAKER) (test 8.2 mg/dL 8.4-10.2 bnky=607) EGFR (BEAKER) (test mL/min/1.73 sq m INSUFFICIENT CLINICAL DATA igjq=2621) TO CALCULATE ESTIMATED GFR. Specimen slightly [id number] 05:52:00 Test Item Value Reference Range Comments PHOSPHORUS (BEAKER) (test epia=702) 5.7 mg/dL 2.3-4.7 HEPATIC FUNCTION [id number] 05:52:00 Test Item Value Reference Range Comments TOTAL PROTEIN (BEAKER) (test mddo=896) 5.2 gm/dL 6.0-8.3 ALBUMIN (BEAKER) (test ixkd=8370) 2.3 g/dL 3.5-5.0 BILIRUBIN TOTAL (BEAKER) (test hbvk=027) 3.5 mg/dL 0.2-1.2 BILIRUBIN DIRECT (BEAKER) (test tcke=716) 2.6 mg/dL 0.1-0.5 ALKALINE PHOSPHATASE (BEAKER) (test frke=917) 81 U/L 40-150 AST (SGOT) (BEAKER) (test ccfu=312) 2190 U/L 5-34 ALT (SGPT) (BEAKER) (test bwsu=936) 1782 U/L 6-55 Specimen slightly ictericCREATINE KINASE (CK), TOTAL AND [id number] 05:52:00 Test Item Value Reference Range Comments CREATINE KINASE TOTAL (BEAKER) (test wpwc=873) 341 U/L 29-200 CREATINE KINASE-MB (BEAKER) (test jqen=227) 5.4 ng/mL 0.0-6.6 CREATINE KINASE-MB INDEX (BEAKER) (test ekps=914) 1.6 % Effective 05/08/2014: CK-MB Reference Range ChangeNew: 0.0-6.6 Previous: 0.0- 4.9CK-MB Reference Range:<6.7 Normal6.7-10.0 Borderline>10.0 AbnormalCBC W/PLT COUNT & AUTO [id number] 05:48:00 Test Item Value Reference Range Comments WHITE BLOOD CELL COUNT (BEAKER) (test xlsj=300) 4.1 K/ L 4.0-10.0 RED BLOOD CELL COUNT (BEAKER) (test nmtv=307) 3.29 M/ L 4.00-5.00 HEMOGLOBIN (BEAKER) (test zbcl=910) 10.0 GM/DL 12.0-15.0 HEMATOCRIT (BEAKER) (test iwwn=186) 30.7 % 36.0-45.0 MEAN CORPUSCULAR VOLUME (BEAKER) (test ihjp=731) 93.5 fL 82.0-99.0 MEAN CORPUSCULAR HEMOGLOBIN (BEAKER) (test 30.5 pg 27.0-33.0 qjda=859) MEAN CORPUSCULAR HEMOGLOBIN CONC (BEAKER) (test 32.6 GM/DL 32.0-36.0 ovip=562) RED CELL DISTRIBUTION WIDTH (BEAKER) (test 15.0 % 10.3-14.2 ptwy=241) PLATELET COUNT (BEAKER) (test fjma=753) 106 K/CU MM 150-430 MEAN PLATELET VOLUME (BEAKER) (test urdy=676) 9.6 fL 6.5-10.5 NUCLEATED RED BLOOD CELLS (BEAKER) (test 0 /100 WBC 0-0 ssua=924) NEUTROPHILS RELATIVE PERCENT (BEAKER) (test 66 % oiem=971) LYMPHOCYTES RELATIVE PERCENT (BEAKER) (test 24 % yexu=902) MONOCYTES RELATIVE PERCENT (BEAKER) (test 6 % plvx=536) EOSINOPHILS RELATIVE PERCENT (BEAKER) (test 3 % pnuh=851) BASOPHILS RELATIVE PERCENT (BEAKER) (test 0 % wknl=572) NEUTROPHILS ABSOLUTE COUNT (BEAKER) (test 2.74 K/ L 1.80-8.00 ivmk=678) LYMPHOCYTES ABSOLUTE COUNT (BEAKER) (test 1.00 K/ L 1.48-4.50 zymn=625) MONOCYTES ABSOLUTE COUNT (BEAKER) (test 0.26 K/ L 0.00-1.30 amzp=683) EOSINOPHILS ABSOLUTE COUNT (BEAKER) (test 0.13 K/ L 0.00-0.50 nucl=900) BASOPHILS ABSOLUTE COUNT (BEAKER) (test 0.01 K/ L 0.00-0.20 ditc=339) [id number] 05:09:00 Test Item Value Reference Range Comments FIBRINOGEN LEVEL (BEAKER) (test qtsx=358) 427 mg/dl 225-434 [id number] 05:09:00 Test Item Value Reference Range Comments PARTIAL THROMBOPLASTIN TIME (BEAKER) (test 36.2 seconds 22.5-36.0 bmkf=835) PROTHROMBIN [id number] 05:08:00 Test Item Value Reference Range Comments PROTIME (BEAKER) (test lkpa=327) 22.8 seconds 11.7-14.7 INR (BEAKER) (test eppg=372) 2.0 <=5.9 RECOMMENDED COUMADIN/WARFARIN INR THERAPY RANGESSTANDARD DOSE: 2.0 - 3.0 Includes: PROPHYLAXIS forvenous thrombosis, systemic embolization; TREATMENT for venous thrombosis and/or pulmonary embolus.HIGH RISK: Target INR is 2.5-3.5 for patients with mechanical heart valves.HEPATITIS PANEL, [id number] 03:40 :00 Test Item Value Reference Range Comments HEPATITIS A IGM ANTIBODY (BEAKER) (test Nonreactive Nonreactive fbrm=715) HEPATITIS B CORE IGM ANTIBODY (BEAKER) (test Nonreactive Nonreactive tlli=950) HEPATITIS C ANTIBODY (BEAKER) (test ifxi=260) Nonreactive Nonreactive HEPATITIS B SURFACE ANTIGEN (2) (BEAKER) (test Nonreactive Nonreactive aamc=1877) CREATININE, RANDOM [id number] 03:18:00 Test Item Value Reference Range Comments CREATININE URINE (BEAKER) (test bmmp=589) 118.7 mg/dL Reference Range: No NormalsSODIUM, RANDOM [id number] 03:18:00 Test Item Value Reference Range Comments SODIUM URINE (BEAKER) (test qgpi=896) 60 meq/L Reference Range: No NormalsUREA NITROGEN, RANDOM [id number] 03:18:00 Test Item Value Reference Range Comments UREA NITROGEN URINE (BEAKER) (test vhre=728) 303 mg/dL Reference Range: No [id number] 03:07:00 Test Item Value Reference Range Comments AMMONIA (BEAKER) (test zdus=545) 48 mol/L 18-72 [id number] 02:57:00 Test Item Value Reference Range Comments D-DIMER QUANTITATIVE (BEAKER) (test csxa=254) 18.03 MG/L FEU <0.50 Intended Use: The D-Dimer Assay can be used to aid in the diagnosis of Deep Vein Thrombosis (DVT) and Pulmonary Embolism Disease (PED).In patients with low pre-test probability, various studies concerning STA Liatest D-dimer test have reported that with a cutoff value of 0.50 MG/L FEU, the Negative Predictive Value (NPV) regarding the exclusion of thrombosis is within 95-100% range.URINALYSIS W/ REFLEX URINE [id number] 02:53:00 Test Item Value Reference Range Comments COLOR (BEAKER) (test bvul=541) Yellow CLARITY (BEAKER) (test twkv=097) Hazy SPECIFIC GRAVITY UA (BEAKER) (test xeuk=630) 1.012 1.001-1.035 PH UA (BEAKER) (test itto=347) 6.5 5.0-8.0 PROTEIN UA (BEAKER) (test tsqp=016) 300 mg/dL Negative GLUCOSE UA (BEAKER) (test layu=441) Negative Negative KETONES UA (BEAKER) (test rdkg=390) Negative Negative BILIRUBIN UA (BEAKER) (test fihe=752) Positive Negative BLOOD UA (BEAKER) (test gxyd=942) Moderate Negative NITRITE UA (BEAKER) (test mmxa=590) Negative Negative LEUKOCYTE ESTERASE UA (BEAKER) (test wgub=570) Large Negative UROBILINOGEN UA (BEAKER) (test gevf=964) 3.0 mg/dL 0.2-1.0 RBC UA (BEAKER) (test tfhw=512) 4 /HPF WBC UA (BEAKER) (test snwv=223) > /HPF BACTERIA (BEAKER) (test jwnw=615) Occasional MUCUS (BEAKER) (test wakz=0942) Rare SQUAMOUS EPITHELIAL (BEAKER) (test vxoy=933) 19 /HPF HYALINE CASTS (BEAKER) (test uoqr=916) 13 /LPF SOURCE(BEAKER) (test fyst=6011) [id number] 02:49:00 Test Item Value Reference Range Comments PARTIAL THROMBOPLASTIN TIME (BEAKER) (test 39.4 seconds 22.5-36.0 cxtw=046) PROTHROMBIN TIME/[id number] 02:48:00 Test Item Value Reference Range Comments PROTIME (BEAKER) (test bgfj=180) 22.0 seconds 11.7-14.7 INR (BEAKER) (test vqav=651) 1.9 <=5.9 RECOMMENDED COUMADIN/WARFARIN INR THERAPY RANGESSTANDARD DOSE: 2.0 - 3.0 Includes: PROPHYLAXIS forvenous thrombosis, systemic embolization; TREATMENT for venous thrombosis and/or pulmonary embolus.HIGH RISK: Target INR is 2.5-3.5 for patients with mechanical heart valves.[id number] 02:48:00 Test Item Value Reference Range Comments FIBRINOGEN LEVEL (BEAKER) (test tljp=413) 421 mg/dl 225-434 BLOOD GAS, [id number] 02:43:00 Test Item Value Reference Range Comments PH VENOUS (BEAKER) (test mkym=096) 7.46 7.32-7.42 PCO2 VENOUS (BEAKER) (test mtad=703) 53 mmHg 41-51 PO2 VENOUS (BEAKER) (test fisa=182) 83 mmHg 25-40 O2 SATURATION VENOUS (BEAKER) (test uekt=023) 96.5 % 40.0-70.0 HCO3 VENOUS (BEAKER) (test pzfk=787) 37 mmol/L 21-29 BASE EXCESS VENOUS (BEAKER) (test tarh=466) 11.7 mmol/L -2.0-3.0 PATIENT TEMPERATURE (BEAKER) (test xlon=7552) 37.0 C FIO2 (BEAKER) (test qupz=2751) 21.0 % CBC W/PLT COUNT & AUTO [id number] 02:43:00 Test Item Value Reference Range Comments WHITE BLOOD CELL COUNT (BEAKER) (test gerq=706) 4.4 K/ L 4.0-10.0 RED BLOOD CELL COUNT (BEAKER) (test odri=989) 3.13 M/ L 4.00-5.00 HEMOGLOBIN (BEAKER) (test codm=403) 9.8 GM/DL 12.0-15.0 HEMATOCRIT (BEAKER) (test zrpt=843) 29.0 % 36.0-45.0 MEAN CORPUSCULAR VOLUME (BEAKER) (test qsak=274) 92.9 fL 82.0-99.0 MEAN CORPUSCULAR HEMOGLOBIN (BEAKER) (test 31.3 pg 27.0-33.0 rnct=132) MEAN CORPUSCULAR HEMOGLOBIN CONC (BEAKER) (test 33.6 GM/DL 32.0-36.0 zqjh=365) RED CELL DISTRIBUTION WIDTH (BEAKER) (test 15.3 % 10.3-14.2 jhej=782) PLATELET COUNT (BEAKER) (test jeef=834) 113 K/CU MM 150-430 MEAN PLATELET VOLUME (BEAKER) (test lmue=529) 9.8 fL 6.5-10.5 NUCLEATED RED BLOOD CELLS (BEAKER) (test 0 /100 WBC 0-0 ajcu=008) NEUTROPHILS RELATIVE PERCENT (BEAKER) (test 61 % qudr=649) LYMPHOCYTES RELATIVE PERCENT (BEAKER) (test 23 % lpgo=143) MONOCYTES RELATIVE PERCENT (BEAKER) (test 11 % dqum=858) EOSINOPHILS RELATIVE PERCENT (BEAKER) (test 4 % fzub=084) BASOPHILS RELATIVE PERCENT (BEAKER) (test 1 % kgss=416) NEUTROPHILS ABSOLUTE COUNT (BEAKER) (test 2.65 K/ L 1.80-8.00 llfv=823) LYMPHOCYTES ABSOLUTE COUNT (BEAKER) (test 1.01 K/ L 1.48-4.50 metj=407) MONOCYTES ABSOLUTE COUNT (BEAKER) (test 0.48 K/ L 0.00-1.30 ktto=607) EOSINOPHILS ABSOLUTE COUNT (BEAKER) (test 0.19 K/ L 0.00-0.50 raya=535) BASOPHILS ABSOLUTE COUNT (BEAKER) (test 0.05 K/ L 0.00-0.20 kzno=793) 0.00LACTIC ACID, VENOUS, WHOLE [id number] 02:35:00 Test Item Value Reference Range Comments LACTATE BLOOD VENOUS (2) (BEAKER) (test 0.8 mmol/L 0.5-2.2 xjve=5271) Effective 10/23/2015: Units/Reference Range ChangeNew: 0.5-2.2 mmol/L Previous: 5 -20 mg/dLSpecimen slightly icteric
[2017-09-09] MEDS ORDERED: ONDANSETRON 4 MG/2 ML VIAL ONE (01:17)
[2017-09-09] MEDS ORDERED: PROMETHAZINE 25 MG/ML VIAL ONE (01:40)
[2017-09-09] MEDS ORDERED: MORPHINE 4 MG/ML SYR ONE ×2 (01:41→04:04)
[2017-09-09 01:49] LABS: Absolute Lymphocytes (CBC) 1.1 K/uL (0.7-4.9); Absolute Monocytes 0.3 K/uL (0.1-1.3); Absolute Neutrophil 6.4 K/uL (1.8-8.0); Basophils % 1.3 % (0-1.3); Eosinophils % 1.7 % (0-4.4); Hematocrit 27.9 % (36.0-45.0); Lymphocytes % 13.3 % (15.3-44.8); MCV 89.3 fL (80-100); MPV 10.7 fL (7.6-11.3); Monocytes % 4.2 % (3.3-12.3); RBC Red Blood Cell Count 3.12 M/uL (3.86-4.86)
[2017-09-09 01:57] LABS: Protime INR 0.94
[2017-09-09 02:00] LABS: Potassium 3.5 mEq/L (3.6-5.0)
[2017-09-09] MEDS ORDERED: PANTOPRAZOLE 40 MG INJ ONE (02:00)
[2017-09-09] MEDS ORDERED: HYDRALAZINE HCL 20 MG/ML VIAL ONE ×2 (02:00→03:22)
[2017-09-09 02:07] LABS: Albumin 2.6 g/dL (3.2-5.5); Bilirubin Direct 0.1 mg/dL (0-0.2); Bilirubin Total 0.8 mg/dL (0.3-1.2); Protein, Total 5.5 g/dL (6.0-8.3)
[2017-09-09 02:34] LABS: Magnesium 1.8 mg/dL (1.8-2.5)
[2017-09-09 03:11] LABS: CKMB Creatine Kinase MB 13.1 ng/ml (0.3-4.0)
--- NOTE | 2017-09-09 03:24 | ER ---
Nurse's Notes [facility] Name: Cathi Zaldivar Age: 36 yrs Sex: Female : 1980 Arrival Date: 09/09/2017 Time: 00:35 Bed 8 Private MD: Diagnosis: Essential (primary) hypertension;Unspecified kidney failure;Abdominal tenderness;Gastroparesis;Vomiting Presentation: 09/09 00:33 Presenting complaint: EMS states: upon arrival pt complaining of abd pain that started ea at 4 pm, describes pain as constant and sharp. Transition of care: patient was not received from another setting of care. Onset of symptoms was September 09, 2017. Care prior to arrival: None. 00:33 Method Of Arrival: EMS: [facility] ea 00:33 Acuity: JESSICA 3 ea Triage Assessment: 00:33 General: Appears uncomfortable, Behavior is crying, restless. Pain: Complains of pain ea in abdomen Pain currently is 10 out of 10 on a pain scale. Quality of pain is described as aching, sharp, Pain began 4 PM yesterday Is continuous. EENT: No signs and/or symptoms were reported regarding the EENT system. Neuro: Level of Consciousness is awake, alert, obeys commands, Oriented to person, place, time, situation. Cardiovascular: Patient's skin is warm and dry. Respiratory: Airway is patent Respiratory effort is even, unlabored, Respiratory pattern is regular, symmetrical. GI: Reports lower abdominal pain, upper abdominal pain, diarrhea, vomiting, since since four PM yesterday afternoon. 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 ea Historical: - Allergies: 00:44 ambien; ea 00:44 Lisinopril; ea 00:44 Nitrofurantoin Macrocrystal; ea 00:44 Codeine; ea 00:44 Prolixin; ea 00:44 PENICILLINS; ea - Home Meds: 00:44 amlodipine 10 mg tab 1 tab once daily [Active]; divalproex 500 mg Oral TbEC once daily ea [Active]; doxazosin 4 mg Oral tab twice a day [Active]; gabapentin 100 mg Oral cap as needed [Active]; hydralazine 50 mg Oral tab [Active]; Lantus 100 unit/mL Sub-Q soln as needed [Active]; metoprolol tartrate 25 mg Oral tab 1 tab 2 times per day [Active]; Novolog 100 unit/mL Sub-Q soln [Active]; pravastatin Oral [Active]; sertraline 50 mg Oral tab [Active]; Vitamin D3 5,000 unit Oral tab daily [Active]; Zofran (as hydrochloride) 4 mg Oral tab as needed [Active]; tramadol 50 mg Oral tab 1 tab PRN [Active]; - PMHx: 00:44 chronic kidney disease; cyclic vomiting syndrome; Diabetes - NIDDM; ENCEPHALOPATHY; ea Gastroparesis; liver failure; PERIPHERAL NEUROPATHY; - Immunization history:: Adult Immunizations up to date. - Social history:: Smoking status: Patient uses tobacco products, 6 cigarettes a day. - Family history:: not pertinent. Screenin:48 Abuse screen: Denies threats or abuse. Nutritional screening: No deficits noted. ea Tuberculosis screening: No symptoms or risk factors identified. Fall Risk None identified. Assessment: 00:53 General: Appears distressed, uncomfortable, Behavior is agitated, anxious, crying, ar4 restless. Pain: Complains of pain in abdomen; RUQ, LUQ, LLQ, RLQ, epigastric region, supra pubic region Pain does not radiate. Pain currently is 10 out of 10 on a pain scale. Quality of pain is described as sharp, stabbing, Pain began 1 day ago. Is continuous, Alleviated by nothing. Aggravated by increased activity, repositioning, weight bearing, Noted to be crying, grimacing, guarding, moaning, resistant to movement, restless, Also complains of nausea, vomiting. Neuro: Level of Consciousness is awake, alert, obeys commands, Oriented to person, place, time, situation, Developer Relations Manager are equal bilaterally Moves all extremities. Speech is normal, Facial symmetry appears normal, Pupils are PERRLA. Cardiovascular: Denies chest pain, shortness of breath, Heart tones S1 S2 Capillary refill < 3 seconds is brisk in right fingers Pulses are all present. Cardiovascular: Edema is 2+ to left midcalf, left ankle, left foot, left toes, right midcalf, right ankle, right foot and right toes pitting to left midcalf, left ankle, left foot, left toes, right midcalf, right ankle, right foot and right toes. Respiratory: Airway is patent Breath sounds are clear bilaterally. GI: Abdomen is round non-distended, Pt is actively vomiting bile, Bowel sounds present X 4 quads. Abd is soft X 4 quads Abdomen is tender to palpation X 4 quads. Guarding noted X 4 quads. Reports lower abdominal pain, upper abdominal pain, cramping, diarrhea, epigastric pain, intolerance of fluids, intolerance of food, nausea, vomiting, Pt reports, "I have had about 15-20 episodes of diarrhea and have thrown up too many times to count.". : No signs and/or symptoms were reported regarding the genitourinary system. EENT: No signs and/or symptoms were reported regarding the EENT system. Derm: Skin is intact, Skin is dry, cool to touch at bilateral LE and feet Skin is normal, Skin temperature is warm. Derm:. Musculoskeletal: Circulation, motion, and sensation intact. 01:53 Reassessment: Patient and/or family updated on plan of care and expected duration. Pain ea level reassessed. Patient is alert, oriented x 3, equal unlabored respirations, skin warm/dry/pink. 02:10 Reassessment: Patient and/or family updated on plan of care and expected duration. Pain ea level reassessed. Patient is alert, oriented x 3, equal unlabored respirations, skin warm/dry/pink. 03:05 Reassessment: Pt resting with eyes closed, respirations even and unlabored, chest ea expansions even and symmetrical, no s/s of pain or discomfort noted at this time. 05:45 Reassessment: Pt. tolerated straight cath well. ar4 06:33 Reassessment: Patient and/or family updated on plan of care and expected duration. Pain ea level reassessed. Patient is alert, oriented x 3, equal unlabored respirations, skin warm/dry/pink. Patient states feeling better. 06:49 Reassessment: Resting with eyes closed, respirations even and unlabored. Chest ea expansions even and symmetrical. No s/s of pain or discomfort noted at this time. 07:42 Reassessment: Patient appears in no apparent distress at this time. Patient and/or ch family updated on plan of care and expected duration. Pain level reassessed. pt appears to be sleeping, resps even and unlabored, responds to verbal stimuli. Vital Signs: 00:33 BP 225 / 129; Pulse 93; Resp 18 S; Temp 97.8(O); Pulse Ox 100% on R/A; Pain 10/10; ea 00:51 Weight 74.39 kg; Height 5 ft. 3 in. (160.02 cm); ea 01:48 BP 203 / 110; Pulse 87; Resp 18 S; Pulse Ox 99% on R/A; ea 01:54 BP 205 / 103; Pulse 88; Resp 18; Pulse Ox 100% ; ea 02:10 BP 203 / 97; Pulse 85; Resp 18 S; Pulse Ox 99% on R/A; Pain 5/10; ea 02:30 BP 201 / 115; Pulse 84; Resp 18; Pulse Ox 98% on R/A; ea 02:31 BP 209 / 108; Pulse 84; Resp 18; Pulse Ox 97% on R/A; ea 03:05 BP 200 / 99; Pulse 67; Resp 18; Pulse Ox 99% on R/A; ea 03:30 BP 197 / 99; Pulse 86; Resp 19; Pulse Ox 98% on R/A; ea 03:32 BP 197 / 97; Pulse 79; Resp 18; Pulse Ox 97% on R/A; ea 03:34 BP 197 / 99; Pulse 87; Resp 18 S; Pulse Ox 97% on R/A; ea 04:03 BP 198 / 99; Pulse 84; Resp 18; Pulse Ox 97% on R/A; ea 06:10 BP 183 / 111; Pulse 86; Resp 16 S; Pulse Ox 98% on R/A; ea 06:30 BP 189 / 97; Pulse 80; Resp 16; Pulse Ox 97% on R/A; ea 07:43 BP 187 / 95; Pulse 74; Resp 16; Temp 98.3; Pulse Ox 99% on R/A; Pain 0/10; ch 00:51 Body Mass Index 29.05 (74.39 kg, 160.02 cm) ea ED Course: 00:33 Patient has correct armband on for positive identification. Bed in low position. Call ea light in reach. Side rails up X2. 00:33 Arm band placed on right wrist. Patient placed in an exam room, on a stretcher, on ea pulse oximetry, Emesis basin given. 00:35 Patient arrived in ED. ea 00:40 Triage completed. ea 00:52 Luis Sandra MD is Attending Physician. juan 00:53 Jenny Savage, TABATHA is Primary Nurse. ea 01:14 Initial lab(s) drawn, by me, sent to lab. Missed attempt(s): 18 gauge in left bb antecubital area. Bleeding controlled, band aid applied, catheter tip intact. Inserted saline lock: 20 gauge in right antecubital area, using aseptic technique. Blood collected. 01:36 X-ray completed. Portable x-ray completed in exam room. Patient tolerated procedure kw well. 03:20 Dina Ace MD is Hospitalizing Provider. juan 05:24 No provider procedures requiring assistance completed. Patient admitted, IV remains in ea place. 05:42 Urine collected: straight cath specimen, clear, Amount Returned: 400mL. ar4 06:57 Primary Nurse role handed off by Jenny Savage RN ch 06:57 Anila Patel, TABATHA is Primary Nurse. 07:03 Report given to Anila MAYS. ea Administered Medications: 01:15 Drug: Zofran 4 mg Route: IVP; Site: right antecubital; bb 01:53 Follow up: Response: No adverse reaction ea 01:30 Drug: morphine 4 mg Route: IVP; Site: right antecubital; ea 03:20 Follow up: Response: No adverse reaction; Pain is decreased ea 01:30 Drug: Phenergan 12.5 mg Route: IVP; Site: right antecubital; ea 02:00 Follow up: Response: No adverse reaction ea 01:40 Drug: ProTONIX 40 mg Route: IVP; Site: right antecubital; ea 02:30 Follow up: Response: No adverse reaction ea 01:49 Drug: hydrALAZINE 10 mg Route: IV; Rate: per protocol; Site: right antecubital; ea 02:30 Follow up: BP 201 / 115; Pulse 84 bpm; Resp 18 bpm; Pulse Ox 98% RA; IV Status: ea Completed infusion 02:31 Drug: hydrALAZINE 10 mg Route: IV; Rate: per protocol; Site: right antecubital; ea 03:30 Follow up: BP 197 / 99; Pulse 86 bpm; Resp 19 bpm; Pulse Ox 98% RA; Response: No ea adverse reaction; Blood pressure is lowered; IV Status: Completed infusion 03:17 Drug: hydrALAZINE 10 mg Route: IV; Rate: per protocol; Site: right antecubital; ea 03:32 Follow up: BP 197 / 97; Pulse 79 bpm; Resp 18 bpm; Pulse Ox 97% RA; IV Status: ea Completed infusion 05:25 Drug: morphine 4 mg Route: IVP; Site: right antecubital; ea 06:16 Follow up: Response: No adverse reaction ea 05:26 Drug: Phenergan 12.5 mg Route: IVP; Site: right antecubital; ea 06:16 Follow up: Response: No adverse reaction ea Outcome: 03:23 Decision to Hospitalize by Provider. juan 04:00 Instructed on the need for admit, Demonstrated understanding of instructions. ea 04:30 Admitted to ER Hold. [facility] see [facility] for further documentation. ea 05:24 Condition: stable ea 06:11 Attestation : I agree with the documentation charted by Dianna BOOTHE. ea 07:50 Admitted to Med/surg accompanied by tech, via wheelchair, Report called to Viviane lemos 08:20 Patient left the ED. Signatures: Anila Patel RN RN Luis Peralta MD MD cha Ballard, Brenda, RN RN bb Whitley, Kimberlee kw Antunez, Elena, RN RN ea Roberts, Amber ar4 Corrections: (The following items were deleted from the chart) 01:49 01:49 morphine 4 mg IVP in right antecubital ea ea 02:15 00:53 Cardiovascular: Edema is 2+ to left midcalf, left ankle, left foot, left toes, ar4 right midcalf, right ankle, right foot and right toes ar4
--- NOTE | 2017-09-09 03:24 | EDPHYS ---
Physician Documentation [facility] Name: Cathi Zaldivar Age: 36 yrs Sex: Female : 1980 Arrival Date: 09/09/2017 Time: 00:35 Bed 8 Private MD: ED Physician Lius Sandra HPI: 09/09 01:28 This 36 yrs old Female presents to ER via EMS with complaints of vomiting and juan abdominal pain. 01:28 The patient presents with abdominal pain. Onset: The symptoms/episode began/occurred 1 juan day(s) ago. The patient presents to the emergency department with nausea, vomiting, abdominal pain. Onset: The symptoms/episode began/occurred 1 day(s) ago. Possible causes: unknown. The symptoms are aggravated by nothing. The symptoms are alleviated by nothing. The symptoms do not radiate. Associated signs and symptoms: The patient has no apparent associated signs or symptoms. 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 ea Historical: - Allergies: 00:44 ambien; ea 00:44 Lisinopril; ea 00:44 Nitrofurantoin Macrocrystal; ea 00:44 Codeine; ea 00:44 Prolixin; ea 00:44 PENICILLINS; ea - Home Meds: 00:44 amlodipine 10 mg tab 1 tab once daily [Active]; divalproex 500 mg Oral TbEC once daily ea [Active]; doxazosin 4 mg Oral tab twice a day [Active]; gabapentin 100 mg Oral cap as needed [Active]; hydralazine 50 mg Oral tab [Active]; Lantus 100 unit/mL Sub-Q soln as needed [Active]; metoprolol tartrate 25 mg Oral tab 1 tab 2 times per day [Active]; Novolog 100 unit/mL Sub-Q soln [Active]; pravastatin Oral [Active]; sertraline 50 mg Oral tab [Active]; Vitamin D3 5,000 unit Oral tab daily [Active]; Zofran (as hydrochloride) 4 mg Oral tab as needed [Active]; tramadol 50 mg Oral tab 1 tab PRN [Active]; - PMHx: 00:44 chronic kidney disease; cyclic vomiting syndrome; Diabetes - NIDDM; ENCEPHALOPATHY; ea Gastroparesis; liver failure; PERIPHERAL NEUROPATHY; - Immunization history:: Adult Immunizations up to date. - Social history:: Smoking status: Patient uses tobacco products, 6 cigarettes a day. - Family history:: not pertinent. ROS: 01:28 Constitutional: Negative for fever, chills, and weight loss, Eyes: Negative for injury, juan pain, redness, and discharge, ENT: Negative for injury, pain, and discharge, Neck: Negative for injury, pain, and swelling, Cardiovascular: Negative for chest pain, palpitations, and edema, Respiratory: Negative for shortness of breath, cough, wheezing, and pleuritic chest pain, Back: Negative for injury and pain, : Negative for injury, bleeding, discharge, and swelling, MS/Extremity: Negative for injury and deformity, Skin: Negative for injury, rash, and discoloration, Neuro: Negative for headache, weakness, numbness, tingling, and seizure, Psych: Negative for depression, anxiety, suicide ideation, homicidal ideation, and hallucinations, Allergy/Immunology: Negative for hives, rash, and allergies, Endocrine: Negative for neck swelling, polydipsia, polyuria, polyphagia, and marked weight changes, Hematologic/Lymphatic: Negative for swollen nodes, abnormal bleeding, and unusual bruising. 01:28 Abdomen/GI: Positive for abdominal pain, nausea and vomiting, of the epigastric area, right upper quadrant and left upper quadrant. Exam: 01:28 Constitutional: This is a well developed, well nourished patient who is awake, alert, juan and in no acute distress. Head/Face: Normocephalic, atraumatic. Eyes: Pupils equal round and reactive to light, extra-ocular motions intact. Lids and lashes normal. Conjunctiva and sclera are non-icteric and not injected. Cornea within normal limits. Periorbital areas with no swelling, redness, or edema. ENT: Nares patent. No nasal discharge, no septal abnormalities noted. Tympanic membranes are normal and external auditory canals are clear. Oropharynx with no redness, swelling, or masses, exudates, or evidence of obstruction, uvula midline. Mucous membranes moist. Neck: Trachea midline, no thyromegaly or masses palpated, and no cervical lymphadenopathy. Supple, full range of motion without nuchal rigidity, or vertebral point tenderness. No Meningismus. Chest/axilla: Normal chest wall appearance and motion. Nontender with no deformity. No lesions are appreciated. Cardiovascular: Regular rate and rhythm with a normal S1 and S2. No gallops, murmurs, or rubs. Normal PMI, no JVD. No pulse deficits. Respiratory: Lungs have equal breath sounds bilaterally, clear to auscultation and percussion. No rales, rhonchi or wheezes noted. No increased work of breathing, no retractions or nasal flaring. Back: No spinal tenderness. No costovertebral tenderness. Full range of motion. Female : Normal external genitalia. Skin: Warm, dry with normal turgor. Normal color with no rashes, no lesions, and no evidence of cellulitis. MS/ Extremity: Pulses equal, no cyanosis. Neurovascular intact. Full, normal range of motion. Neuro: Awake and alert, GCS 15, oriented to person, place, time, and situation. Cranial nerves II-XII grossly intact. Motor strength 5/5 in all extremities. Sensory grossly intact. Cerebellar exam normal. Normal gait. Psych: Awake, alert, with orientation to person, place and time. Behavior, mood, and affect are within normal limits. 01:28 Abdomen/GI: Inspection: distension, Bowel sounds: normal, Palpation: mild abdominal tenderness, moderate abdominal tenderness, Liver: no appreciated palpable abnormalities, Hernia: not appreciated. Vital Signs: 00:33 BP 225 / 129; Pulse 93; Resp 18 S; Temp 97.8(O); Pulse Ox 100% on R/A; Pain 10/10; ea 00:51 Weight 74.39 kg; Height 5 ft. 3 in. (160.02 cm); ea 01:48 BP 203 / 110; Pulse 87; Resp 18 S; Pulse Ox 99% on R/A; ea 01:54 BP 205 / 103; Pulse 88; Resp 18; Pulse Ox 100% ; ea 02:10 BP 203 / 97; Pulse 85; Resp 18 S; Pulse Ox 99% on R/A; Pain 5/10; ea 02:30 BP 201 / 115; Pulse 84; Resp 18; Pulse Ox 98% on R/A; ea 02:31 BP 209 / 108; Pulse 84; Resp 18; Pulse Ox 97% on R/A; ea 03:05 BP 200 / 99; Pulse 67; Resp 18; Pulse Ox 99% on R/A; ea 03:30 BP 197 / 99; Pulse 86; Resp 19; Pulse Ox 98% on R/A; ea 03:32 BP 197 / 97; Pulse 79; Resp 18; Pulse Ox 97% on R/A; ea 03:34 BP 197 / 99; Pulse 87; Resp 18 S; Pulse Ox 97% on R/A; ea 04:03 BP 198 / 99; Pulse 84; Resp 18; Pulse Ox 97% on R/A; ea 06:10 BP 183 / 111; Pulse 86; Resp 16 S; Pulse Ox 98% on R/A; ea 06:30 BP 189 / 97; Pulse 80; Resp 16; Pulse Ox 97% on R/A; ea 07:43 BP 187 / 95; Pulse 74; Resp 16; Temp 98.3; Pulse Ox 99% on R/A; Pain 0/10; ch 00:51 Body Mass Index 29.05 (74.39 kg, 160.02 cm) MDM: 00:52 Patient medically screened. [facility] 01:31 Data reviewed: vital signs, nurses notes, lab test result(s), EKG, radiologic studies, [facility] plain films. 09/09 01:01 Order name: Amylase, Serum 09/09 01:01 Order name: Basic Metabolic Panel 09/09 01:01 Order name: CBC with Diff 09/09 01:01 Order name: Creatinine for Radiology 09/09 01:01 Order name: Hepatic Function 09/09 01:01 Order name: Lipase 09/09 01:01 Order name: Urine Microscopic Only 09/09 01:23 Order name: BNP [facility] 09/09 01:23 Order name: Ckmb [facility] 09/09 01:23 Order name: CPK [facility] 09/09 01:23 Order name: Magnesium [facility] 09/09 01:23 Order name: PT-INR [facility] 09/09 01:23 Order name: Ptt, Activated [facility] 09/09 01:23 Order name: Troponin (emerg Dept Use Only) [facility] 09/09 01:51 Order name: CBC with Automated Diff; Complete Time: 03:02 EDMS 09/09 02:00 Order name: Basic Metabolic Panel; Complete Time: 03:02 EDMS 09/09 02:00 Order name: Lipase; Complete Time: 03:02 EDMS 09/09 02:00 Order name: Protime (+INR); Complete Time: 03:02 EDMS 09/09 02:00 Order name: PTT, Activated Partial Thromb; Complete Time: 03:02 EDGA 09/09 02:01 Order name: Creatinine (Radiology Only); Complete Time: 03:02 EDMS 09/09 02:07 Order name: Liver (Hepatic) Function; Complete Time: 03:02 EDGA 09/09 02:07 Order name: Amylase Level; Complete Time: 03:02 EDMS 09/09 02:17 Order name: BNP B-Type Natriuretic Peptide; Complete Time: 03:02 EDMS 09/09 02:23 Order name: Depakote [facility] 09/09 02:35 Order name: Creatine Phosphokinase; Complete Time: 03:16 EDMS 09/09 02:35 Order name: Magnesium; Complete Time: 03:16 EDMS 09/09 02:39 Order name: Troponin (Emerg Dept Use Only); Complete Time: 03:02 EDGA 09/09 03:11 Order name: CKMB Creatine Kinase MB; Complete Time: 03:16 EDMS 09/09 04:47 Order name: Valproic Acid (Depakene) Level EDGA 09/09 05:54 Order name: Urine Dipstick--Ancillary (enter results) [facility] 09/09 01:01 Order name: IV Saline Lock; Complete Time: 01:15 09/09 01:01 Order name: Labs collected and sent; Complete Time: 01:15 09/09 01:01 Order name: Urine Dipstick-Ancillary (obtain specimen); Complete Time: 06:25 09/09 01:23 Order name: XRAY Chest (1 view) [facility] 09/09 01:23 Order name: EKG; Complete Time: 01:28 [facility] 09/09 01:23 Order name: Cardiac monitoring; Complete Time: 03:12 [facility] 09/09 01:23 Order name: EKG - Nurse/Tech; Complete Time: 03:12 [facility] 09/09 01:23 Order name: O2 Per Protocol; Complete Time: 02:25 [facility] 09/09 01:23 Order name: O2 Sat Monitoring; Complete Time: 02:25 [facility] 09/09 05:54 Order name: Urine --Ancillary (enter results) [facility] 09/09 06:07 Order name: Urine --Ancillary [facility] 09/09 06:07 Order name: Urine Dipstick-Ancillary [facility] 09/09 06:39 Order name: Urine Microscopic Only EDMS Administered Medications: 01:15 Drug: Zofran 4 mg Route: IVP; Site: right antecubital; bb 01:53 Follow up: Response: No adverse reaction ea 01:30 Drug: morphine 4 mg Route: IVP; Site: right antecubital; ea 03:20 Follow up: Response: No adverse reaction; Pain is decreased ea 01:30 Drug: Phenergan 12.5 mg Route: IVP; Site: right antecubital; ea 02:00 Follow up: Response: No adverse reaction ea 01:40 Drug: ProTONIX 40 mg Route: IVP; Site: right antecubital; ea 02:30 Follow up: Response: No adverse reaction ea 01:49 Drug: hydrALAZINE 10 mg Route: IV; Rate: per protocol; Site: right antecubital; ea 02:30 Follow up: BP 201 / 115; Pulse 84 bpm; Resp 18 bpm; Pulse Ox 98% RA; IV Status: ea Completed infusion 02:31 Drug: hydrALAZINE 10 mg Route: IV; Rate: per protocol; Site: right antecubital; ea 03:30 Follow up: BP 197 / 99; Pulse 86 bpm; Resp 19 bpm; Pulse Ox 98% RA; Response: No ea adverse reaction; Blood pressure is lowered; IV Status: Completed infusion 03:17 Drug: hydrALAZINE 10 mg Route: IV; Rate: per protocol; Site: right antecubital; ea 03:32 Follow up: BP 197 / 97; Pulse 79 bpm; Resp 18 bpm; Pulse Ox 97% RA; IV Status: ea Completed infusion 05:25 Drug: morphine 4 mg Route: IVP; Site: right antecubital; ea 06:16 Follow up: Response: No adverse reaction ea 05:26 Drug: Phenergan 12.5 mg Route: IVP; Site: right antecubital; ea 06:16 Follow up: Response: No adverse reaction ea Disposition: 09/09/17 03:23 Hospitalization ordered by Dina Ace for Observation. Preliminary diagnosis are Essential (primary) hypertension, Unspecified kidney failure, Abdominal tenderness, Gastroparesis, Vomiting. - Bed requested for Telemetry/MedSurg (observation). - Status is Observation. ch - Condition is Fair. - Problem is new. - Symptoms have improved. UTI on Admission? No Signatures: Dispatcher [employer] EDMS Anila Patel RN RN Tika Raymundo, RN RN Luis Camarena MD MD cha Ballard, Brenda, RN RN Jenny Olmstead RN RN esteban
--- NOTE | 2017-09-09 04:34 | P.HP ---
Certification for Inpatient Patient admitted to: Inpatient With expected LOS: >2 Midnights Practitioner: I am a practitioner with admitting privileges, knowledge of patient current condition, hospital course, and medical plan of care. Services: Services provided to patient in accordance with Admission requirements found in Title 42 Section 412.3 of the Code of Federal Regulations Patient History Date of Service: 09/09/17 Reason for admission: intractable nausea and vomiting History of Present Illness: Ms Zaldivar is a 36 years old woman with history of IDDM, diabetic gastroparesis, chronic renal failure, HTN, chronic diastolic CHF, who start yesterday afternoon with abdominal pain associated with intractable nausea and vomiting. The pain is constant, localized in epigastrium area, 10/10 of intensity. She has had similar symptoms in the past. She denied any fever, chills or sweating episodes. She has more swollen lower extremities than usual as well. Work up in ER was remarkable for elevated creatinine, increased BNP, normal WBC count, no fever. Allergies zolpidem tartrate [From Ambien] Allergy (Intermediate, Verified 10/17/16 23:08) Itching/Hives/Rash codeine [Codeine] Allergy (Verified 10/17/16 23:08) Hives fluphenazine enanthate [From Prolixin] Allergy (Verified 10/17/16 23:08) ARM NUMBNESS fluphenazine HCl [From Prolixin] Allergy (Verified 10/17/16 23:08) ARM NUMBNESS guaifenesin [From Prolex D] Allergy (Verified 10/17/16 23:08) Hives lisinopril Allergy (Verified 04/21/17 10:26) Anaphylaxis Penicillins Allergy (Verified 10/17/16 23:08) Hives phenylephrine HCl [From Prolex D] Allergy (Verified 10/17/16 23:08) Hives nitrofurantoin Adverse Reaction (Verified 08/07/17 23:41) liver failure Home Medications: Divalproex Sodium [Depakote] 500 mg PO DAILY 09/08/16 Sertraline [Zoloft*] 50 mg PO DAILY 09/08/16 Tramadol HCl [Ultram] 50 mg PO Q8H PRN #30 tablet 10/18/16 Amlodipine [Norvasc*] 10 mg PO DAILY #30 tab 01/17/17 Doxazosin [Cardura*] 4 mg PO BID #60 tab 01/17/17 Ondansetron HCl [Zofran] 4 mg PO Q6H PRN #30 tablet 01/17/17 Hydralazine [Apresoline*] 100 mg PO BID 02/09/17 Brimonidine [Alphagan P 0.15%*] 1 gtt OPTH TID 08/08/17 Brinzolamide [Azopt] 1 gtt OPTH TID 08/08/17 Furosemide 40 mg PO DAILY 08/08/17 Gabapentin [Neurontin*] 100 mg PO BID 08/08/17 Hydralazine [Apresoline*] 100 mg PO BID 08/08/17 Hydrocodone 5/APAP 325 [[employer] [place] [employer] [place] 5/325*] 1 tab PO Q6H PRN 08/08/17 Latanoprost Ophth [Xalatan 0.005%*] 1 gtt OPTH DAILY 08/08/17 Levobunolol HCl [Betagan] 1 gtt OPTH BID 08/08/17 Metoprolol Succinate [Toprol Xl*] 50 mg PO DAILY 08/08/17 Pravastatin Sodium 40 mg PO DAILY 08/08/17 Prednisol Acet 1% Opth [Pred Forte 1%*] 1 gtt OPTH TID 08/08/17 Cholecalciferol (Vitamin D3) [Vitamin D 5,000 IU Cap*] 5,000 unit PO DAILY #30 cap 08/11/17 Pantoprazole [Protonix Tab*] 40 mg PO DAILY #30 tab 08/11/17 Bacitracin Zinc/Polymyxin B [Poly Bacitracin Ointment] 1 damaris OPTH BID 09/02/17 - Past Medical/Surgical History Diabetic: Yes -: DM Type 2 -: Seizure disorder -: Chronic renal disease -: DM Gastroparesis -: DM Neuropathy -: Insomnia -: Obesity -: JAYLA -: Hypertension -: Post traumatic stress disorder -: Schizoaffective disorder -: CHF, diastolic -: I/D of the right elbow -: 2 previous C-sections -: Tubal ligation Psychosocial/ Personal History: She is , she has 2 children, she does not work. - Family History Mother -: Hypertension, Diabetes, Cancer, Other (see notes) Notes: hypothyroid, asthma, breast cancer Father -: Diabetes, Cancer Notes: - stomach/ lung/ prostate cancer, diabetes - Social History Smoking Status: Light Tobacco smoker (1-9 cigarettes/day) Counseled patient to stop smoking for: less than 10 minutes Alcohol use: No CD- Drugs: No Caffeine use: Yes Place of Residence: Home Review of Systems 10-point ROS is otherwise unremarkable Physical Examination - Physical Exam General: Alert, In no apparent distress HEENT: Atraumatic, PERRLA, Mucous membr. moist/pink, EOMI, Sclerae nonicteric Neck: Supple, 2+ carotid pulse no bruit, No LAD, JVD distended Respiratory: Clear to auscultation bilaterally, Normal air movement Cardiovascular: Regular rate/rhythm, Normal S1 S2 Gastrointestinal: Normal bowel sounds, Tenderness (epigastric area) Musculoskeletal: No tenderness, Swelling (LE edema 3+ bilateral) Integumentary: No rashes Neurological: Normal speech, Normal strength at 5/5 x4 extr, Normal tone, Normal affect Lymphatics: No axilla or inguinal lymphadenopathy - Studies Laboratory Data (last 24 hrs) 09/09/17 00:59: PT 11.1, INR 0.94, APTT 26.9 09/09/17 00:59: Magnesium 1.8 09/09/17 00:59: B-Natriuretic Peptide 3138 H 09/09/17 00:59: Creatinine 3.50 H 09/09/17 00:59: WBC 8.1 D, Hgb 9.3 L, Hct 27.9 L, Plt Count 104 L D 09/09/17 00:59: Sodium 146 H, Potassium 3.5 L, BUN 58 H, Creatinine 3.44 H, Glucose 148 H, Total Bilirubin 0.8, AST 46 H, ALT 31, Alkaline Phosphatase 63, Amylase 71, Lipase 32 Assessment and Plan - Problems (Diagnosis) (1) Abdominal pain Onset Date: 08/03/16 Current Visit: No Status: Acute Qualifiers: Abdominal location: epigastric Qualified Code(s): R10.13 - Epigastric pain (2) Anemia in chronic kidney disease Onset Date: 08/09/17 Current Visit: No Status: Acute Qualifiers: Chronic kidney disease stage: stage 5, not on chronic dialysis Qualified Code(s): N18.5 - Chronic kidney disease, stage 5; D63.1 - Anemia in chronic kidney disease; D63.1 - Anemia in chronic kidney disease (3) Chronic kidney disease, stage 5, kidney failure Onset Date: 08/09/17 Current Visit: No Status: Acute (4) Edema Onset Date: 10/14/16 Current Visit: No Status: Acute Qualifiers: Edema type: unspecified Qualified Code(s): R60.9 - Edema, unspecified (5) Diabetes mellitus type II, uncontrolled Onset Date: 02/09/17 Current Visit: No Status: Chronic Qualifiers: Diabetes mellitus 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 insulin use: with 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 use Diabetes mellitus complication status: with kidney complications Diabetes mellitus complication detail: with chronic kidney disease Chronic kidney disease stage : unspecified stage Qualified Code(s): E11.22 - Type 2 diabetes mellitus with diabetic chronic kidney disease; E11.65 - Type 2 diabetes mellitus with hyperglycemia; Z79.4 - shelter (current) use of insulin (6) Diabetic gastroparesis Onset Date: 10/19/16 Current Visit: No Status: Chronic (7) Intractable nausea and vomiting Onset Date: 08/09/17 Current Visit: No Status: Chronic Qualifiers: Vomiting type: cyclical vomiting Qualified Code(s): G43.A1 - Cyclical vomiting, intractable - Plan Ms Found will be admitted to the hospital due to intractable nausea and vomiting , likely secondary to diabetic gastroparesis, she also has significant edema due to chronic kidney disease. Will tray diuretic treatment. Order antiemetic and pain medication. Will consult Dr Morin for evaluation and recommendations. - Advance Directives Does patient have a Living Will: No Does patient have a Durable POA for Healthcare: No - Code Status/Comfort Care Code Status Assessed: Yes Code Status: Full Code
[2017-09-09] MEDS ORDERED: FUROSEMIDE 40 MG/4 ML VIAL IV ONE (04:42)
[2017-09-09] MEDS ORDERED: FUROSEMIDE 100 MG/10 ML VIAL IV ONE (05:26)
[2017-09-09] MEDS: HYDRALAZINE HCL 20 MG/ML VIAL IV PRN ×2 (05:48→11:24)
[2017-09-09] MEDS ORDERED: METOPROLOL TAR 25 MG TAB ONE (06:03)
[2017-09-09 06:06] LABS: Urine Blood 2+ (NEG); Urine Glucose 1+ (NEG); Urine Protein 3+ (NEG); Urine Specific Gravity 1.025 (1.005-1.030)
[2017-09-09 06:39] LABS: Urine Amorphous Sediment 3+ /HPF (NONE SEEN); Urine Bacteria 20-50 /HPF (<20); Urine Culture Reflex Order REFLEXED; Urine RBC <5 /HPF (NONE SEEN)
[2017-09-09] MEDS ORDERED: ONDANSETRON 4 MG/2 ML VIAL IV PRN (07:54)
[2017-09-09] MEDS ORDERED: MORPHINE 2 MG/ML SYR IV PRN (07:54)
[2017-09-09] MEDS: INSULIN -REGULAR HUMAN 50 UNIT/0.5 ML ML SQ SCH ×4 (07:54→21:00)
[2017-09-09] MEDS ORDERED: POTASSIUM CL SA 10 MEQ TAB PO ONE (08:37)
[2017-09-09] MEDS ORDERED: VITAMIN D 5,000 UNIT CAP PO SCH (09:00)
[2017-09-09] MEDS: METOLAZONE 5 MG TABLET PO SCH (09:00)
--- NOTE | 2017-09-09 09:01 | RAD REPORT ---
EXAM DESCRIPTION: RAD - Chest Single View - 09/09/2017 1:40 am CLINICAL HISTORY: Cough, chest pain COMPARISON: 09/02/2017, 08/24/2017 FINDINGS: Portable technique limits examination quality. The lungs are grossly clear. The heart is moderately prominent in size. No displaced fractures. IMPRESSION: Cardiomegaly suspected
[2017-09-09 09:05] VITALS: O2SAT 99
[2017-09-09] MEDS: FUROSEMIDE 40 MG/4 ML VIAL IV SCH ×2 (09:28→14:39)
[2017-09-09] MEDS: SPIRONOLACTONE 25 MG TABLET PO SCH ×2 (09:29→21:17)
[2017-09-09] MEDS: CALCITROL 0.25 MCG CAP PO SCH (09:30)
--- NOTE | 2017-09-09 09:36 | EKG ---
Test Date: 2017-09-09 Test Time: 02:38:08 [employer] Driver: ONESIMO MEASUREMENT RESULTS: Intervals: Rate: 86 VA: 146 QRSD: 76 QT: 384 QTc: 459 [place]: P: 53 VA: 146 QRS: 52 T: 46 INTERPRETIVE STATEMENTS: Normal sinus rhythm Normal ECG Compared to ECG 09/01/2017 14:35:13 No significant changes Electronically Signed On 09-09-17 09:35:41 CDT by Juan Hogan
[2017-09-09 11:05] VITALS: BMI 30.9
[2017-09-09] MEDS ORDERED: TRAMADOL HCL 50 MG TAB PO PRN ×2 (16:54→18:18)
[2017-09-09] MEDS ORDERED: HYDRALAZINE HCL 10 MG TABLET PO PRN (16:54)
[2017-09-09] MEDS ORDERED: FUROSEMIDE 40 MG TABLET PO SCH (18:00)
[2017-09-09] MEDS ORDERED: PREDNISOLONE 1% OPTH SCH (19:00)
[2017-09-09] MEDS ORDERED: OPTH OPTH SCH (19:00)
[2017-09-09] MEDS ORDERED: HOME MED [BRIMONIDINE TARTRATE 0.15% 5 ML] OPTH SCH (19:00)
[2017-09-09] MEDS ORDERED: HOME MED [LATANOPROST 0.005% 2.5ML OPTH] OPTH SCH (19:15)
[2017-09-09] MEDS ORDERED: ATORVASTATIN 10 MG TAB PO SCH (21:00)
[2017-09-09] MEDS ORDERED: BRINZOLAMIDE OPTH SCH (21:00)
[2017-09-09] MEDS ORDERED: POLYMYXIN B OPTH SCH (21:00)
[2017-09-09] MEDS ORDERED: LEVOBUNOLOL HCL OPTH SCH (21:00)
[2017-09-09] MEDS ORDERED: [UNRECOGNIZED DRUG - OTHER] OPTH SCH (21:00)
--- NOTE | 2017-09-09 21:04 | P.CNS ---
Date of Consult: 09/09/17 Reason for Consult: SANJUANA Requesting Physician: Amber Nagel Chief Complaint: intractable nausea and vomiting History of Present Illness: 36 yo HF CKD presented to the ER with 2 days of moderate, progressive dyspnea with associated edema. No alleviating fx. Reports eating out frequently including japanese food. Ms Zen is a 36 years old woman with history of IDDM, diabetic gastroparesis, chronic renal failure, HTN, chronic diastolic CHF, who start yesterday afternoon with abdominal pain associated with intractable nausea and vomiting. The pain is constant, localized in epigastrium area, 10/10 of intensity. She has had similar symptoms in the past. She denied any fever, chills or sweating episodes. She has more swollen lower extremities than usual as well. Work up in ER was remarkable for elevated creatinine, increased BNP, normal WBC count, no fever. 01:28 This 36 yrs old Female presents to ER via EMS with complaints of vomiting and juan abdominal pain. 01:28 The patient presents with abdominal pain. Onset: The symptoms/episode began/occurred 1 juan day(s) ago. The patient presents to the emergency department with nausea, vomiting, abdominal pain. Onset: The symptoms/episode began/occurred 1 day(s) ago. Possible causes: unknown. The symptoms are aggravated by nothing. The symptoms are alleviated by nothing. The symptoms do not radiate. Associated signs and symptoms: The patient has no apparent associated signs or symptoms. Allergies zolpidem tartrate [From Ambien] Allergy (Intermediate, Verified 10/17/16 23:08) Itching/Hives/Rash codeine [Codeine] Allergy (Verified 10/17/16 23:08) Hives fluphenazine enanthate [From Prolixin] Allergy (Verified 10/17/16 23:08) ARM NUMBNESS fluphenazine HCl [From Prolixin] Allergy (Verified 10/17/16 23:08) ARM NUMBNESS guaifenesin [From Prolex D] Allergy (Verified 10/17/16 23:08) Hives lisinopril Allergy (Verified 04/21/17 10:26) Anaphylaxis Penicillins Allergy (Verified 10/17/16 23:08) Hives phenylephrine HCl [From Prolex D] Allergy (Verified 10/17/16 23:08) Hives nitrofurantoin Adverse Reaction (Verified 08/07/17 23:41) liver failure Home medications list reviewed: Yes Home Medications: Divalproex Sodium [Depakote] 500 mg PO DAILY 09/08/16 Sertraline [Zoloft*] 50 mg PO DAILY 09/08/16 Tramadol HCl [Ultram] 50 mg PO Q8H PRN #30 tablet 10/18/16 Amlodipine [Norvasc*] 10 mg PO DAILY #30 tab 01/17/17 Doxazosin [Cardura*] 4 mg PO BID #60 tab 01/17/17 Ondansetron HCl [Zofran] 4 mg PO Q6H PRN #30 tablet 01/17/17 Brimonidine [Alphagan P 0.15%*] 1 gtt OPTH TID 08/08/17 Brinzolamide [Azopt] 1 gtt OPTH TID 08/08/17 Furosemide 80 mg PO BID 08/08/17 Gabapentin [Neurontin*] 100 mg PO BID 08/08/17 Hydralazine [Apresoline*] 100 mg PO BID 08/08/17 Latanoprost Ophth [Xalatan 0.005%*] 1 gtt OPTH DAILY 08/08/17 Levobunolol HCl [Betagan] 1 gtt OPTH BID 08/08/17 Metoprolol Succinate [Toprol Xl*] 50 mg PO DAILY 08/08/17 Pravastatin Sodium 40 mg PO DAILY 08/08/17 Prednisol Acet 1% Opth [Pred Forte 1%*] 1 gtt OPTH TID 08/08/17 Cholecalciferol (Vitamin D3) [Vitamin D 5,000 IU Cap*] 5,000 unit PO DAILY #30 cap 08/11/17 Pantoprazole [Protonix Tab*] 40 mg PO DAILY #30 tab 08/11/17 Bacitracin Zinc/Polymyxin B [Poly Bacitracin Ointment] 1 damaris OPTH BID 09/02/17 - Past Medical/Surgical History Diabetic: Yes -: DM Type 2 -: Seizure disorder -: Chronic renal disease -: DM Gastroparesis -: DM Neuropathy -: Insomnia -: Obesity -: JAYLA -: Hypertension -: Post traumatic stress disorder -: Schizoaffective disorder -: CHF, diastolic -: I/D of the right elbow -: 2 previous C-sections -: Tubal ligation Psychosocial/ Personal History: She is , she has 2 children, she does not work. - Family History Mother Medical History: Hypertension, Diabetes, Cancer, Other (see notes) Notes: hypothyroid, asthma, breast cancer Father Medical History: Diabetes, Cancer Notes: - stomach/ lung/ prostate cancer, diabetes - Social History Smoking Status: Unknown if ever smoked Alcohol use: No CD- Drugs: No Caffeine use: Yes Place of Residence: Home Review of Systems 10-point ROS is otherwise unremarkable General: Weakness, Malaise Respiratory: SOB with Excertion Cardiovascular: Edema Physical Examination Temp Pulse Resp BP Pulse Ox 98.6 F 63 18 202/97 H 95 09/09/17 16:00 09/09/17 17:25 09/09/17 16:00 09/09/17 17:25 09/09/17 16:00 General: Alert, Oriented x3, Cooperative HEENT: Normocephalic Neck: Supple Cardiovascular: Regular rate/rhythm, No rubs, Edema Gastrointestinal: Soft and benign, Non-distended, No masses Musculoskeletal: No clubbing, No contractures Integumentary: No rashes Neurological: Normal speech External genitalia: Deferred Rectal: Deferred Laboratory Data (last 24 hrs) 09/09/17 00:59: PT 11.1, INR 0.94, APTT 26.9 09/09/17 00:59: Magnesium 1.8 09/09/17 00:59: B-Natriuretic Peptide 3138 H 09/09/17 00:59: Creatinine 3.50 H 09/09/17 00:59: WBC 8.1 D, Hgb 9.3 L, Hct 27.9 L, Plt Count 104 L D 09/09/17 00:59: Sodium 146 H, Potassium 3.5 L, BUN 58 H, Creatinine 3.44 H, Glucose 148 H, Total Bilirubin 0.8, AST 46 H, ALT 31, Alkaline Phosphatase 63, Amylase 71, Lipase 32 Imagings Data: EXAM DESCRIPTION: RAD - Chest Single View - 09/09/2017 1:40 am CLINICAL HISTORY: Cough, chest pain COMPARISON: 09/02/2017, 08/24/2017 FINDINGS: Portable technique limits examination quality. The lungs are grossly clear. The heart is moderately prominent in size. No displaced fractures. IMPRESSION: Cardiomegaly suspected Conclusions/Impression: A/ SANJUANA likely CRS. CKD IV with proteinuria. A/C Diastolic CHF. Hypernatremia. Hypokalemia. Hypocalcemia. Rhabdomyolysis, mild. Anemia in chronic illness. Thrombocytopenia. DM II with CKD. P/ Continue current POC and Medications. Diuretics adjusted. Starting vitamin d. Give potassium. Counseled regarding sodium intake. No NSAIDs. AM labs. Daily weight. Thank you kindly for the consultation.
[2017-09-09] MEDS: DOXAZOSIN 4 MG TAB PO SCH (21:17)
[2017-09-09] MEDS: GABAPENTIN 100 MG CAP PO SCH (21:17)
[2017-09-09] MEDS: FUROSEMIDE 40 MG TABLET PO SCH (21:18)
[2017-09-09] MEDS: HYDRALAZINE HCL 25 MG TABLET PO SCH (21:18)
[2017-09-10 05:34] LABS: Absolute Lymphocytes (CBC) 1.7 K/uL (0.7-4.9); Absolute Monocytes 0.3 K/uL (0.1-1.3); Absolute Neutrophil 2.1 K/uL (1.8-8.0); Basophils % 1.1 % (0-1.3); Eosinophils % 4.6 % (0-4.4); Hematocrit 21.7 % (36.0-45.0); Lymphocytes % 38.8 % (15.3-44.8); MCH 29.9 pg (27.0-35.0); MCV 89.5 fL (80-100); MPV 10.9 fL (7.6-11.3); Monocytes % 6.8 % (3.3-12.3); RBC Red Blood Cell Count 2.43 M/uL (3.86-4.86)
[2017-09-10 05:56] LABS: Phosphorus 4.5 mg/dL (2.5-4.3); Potassium 3.7 mEq/L (3.6-5.0); Uric Acid 6.3 mg/dL (2.6-8.0)
[2017-09-10 07:12] LABS: Hematocrit 22.3 % (36.0-45.0)
[2017-09-10] MEDS: INSULIN -REGULAR HUMAN 50 UNIT/0.5 ML ML SQ SCH ×3 (07:30→16:30)
[2017-09-10] MEDS ORDERED: PANTOPRAZOLE 40MG TABLET PO SCH (07:30)
[2017-09-10] MEDS ORDERED: POTASSIUM CL SA 10 MEQ TAB PO ONE (07:30)
[2017-09-10] MEDS: METOLAZONE 5 MG TABLET PO SCH (09:00)
[2017-09-10] MEDS ORDERED: METOPROLOL XL 25 MG TAB PO SCH (09:00)
[2017-09-10] MEDS ORDERED: AMLODIPINE 10 MG TAB PO SCH (09:00)
[2017-09-10] MEDS: DOXAZOSIN 4 MG TAB PO SCH (09:00)
[2017-09-10] MEDS ORDERED: HOME MED 1 EA UNK (Pravastatin Sodium [Pravastatin Sodium] 40 MG) PO SCH (09:00)
[2017-09-10] MEDS ORDERED: SERTRALINE HCL 50 MG TAB PO SCH (09:00)
[2017-09-10] MEDS ORDERED: VITAMIN D 5,000 UNIT CAP PO SCH (09:00)
[2017-09-10] MEDS ORDERED: DIVALPROEX DR 500MG TAB PO SCH (09:00)
[2017-09-10] MEDS: CALCITROL 0.25 MCG CAP PO SCH (09:01)
[2017-09-10] MEDS: FUROSEMIDE 40 MG TABLET PO SCH (09:01)
[2017-09-10] MEDS: GABAPENTIN 100 MG CAP PO SCH (09:02)
[2017-09-10] MEDS: HYDRALAZINE HCL 25 MG TABLET PO SCH (09:04)
[2017-09-10] MEDS: SPIRONOLACTONE 25 MG TABLET PO SCH (09:04)
[2017-09-10 09:06] VITALS: BP 215/105
[2017-09-10] MEDS ORDERED: DOXAZOSIN 2 MG TAB ONE (09:09)
[2017-09-10 10:07] VITALS: TEMP 97.5
[2017-09-10] MEDS ORDERED: EPOETIN ALFA 10,000 UNIT/ML SQ ONE (14:00)
--- NOTE | 2017-09-10 16:12 | P.SSS ---
Patient History Date of Service: 09/10/17 Primary Care Provider: Dr Morin Reason for admission: intractable nausea and vomiting History of Present Illness: Ms Zaldivar is a 36 years old woman with history of IDDM, diabetic gastroparesis, chronic renal failure, HTN, chronic diastolic CHF, who start yesterday afternoon with abdominal pain associated with intractable nausea and vomiting. The pain is constant, localized in epigastrium area, 10/10 of intensity. She has had similar symptoms in the past. She denied any fever, chills or sweating episodes. She has more swollen lower extremities than usual as well. Work up in ER was remarkable for elevated creatinine, increased BNP, normal WBC count, no fever. Allergies zolpidem tartrate [From Ambien] Allergy (Intermediate, Verified 10/17/16 23:08) Itching/Hives/Rash codeine [Codeine] Allergy (Verified 10/17/16 23:08) Hives fluphenazine enanthate [From Prolixin] Allergy (Verified 10/17/16 23:08) ARM NUMBNESS fluphenazine HCl [From Prolixin] Allergy (Verified 10/17/16 23:08) ARM NUMBNESS guaifenesin [From Prolex D] Allergy (Verified 10/17/16 23:08) Hives lisinopril Allergy (Verified 04/21/17 10:26) Anaphylaxis Penicillins Allergy (Verified 10/17/16 23:08) Hives phenylephrine HCl [From Prolex D] Allergy (Verified 10/17/16 23:08) Hives nitrofurantoin Adverse Reaction (Verified 08/07/17 23:41) liver failure Home Medications: Divalproex Sodium [Depakote] 500 mg PO DAILY 09/08/16 Sertraline [Zoloft*] 50 mg PO DAILY 09/08/16 Tramadol HCl [Ultram] 50 mg PO Q8H PRN #30 tablet 10/18/16 Amlodipine [Norvasc*] 10 mg PO DAILY #30 tab 01/17/17 Doxazosin [Cardura*] 4 mg PO BID #60 tab 01/17/17 Ondansetron HCl [Zofran] 4 mg PO Q6H PRN #30 tablet 01/17/17 Brimonidine [Alphagan P 0.15%*] 1 gtt OPTH TID 08/08/17 Brinzolamide [Azopt] 1 gtt OPTH TID 08/08/17 Furosemide 80 mg PO BID 08/08/17 Gabapentin [Neurontin*] 100 mg PO BID 08/08/17 Hydralazine [Apresoline*] 100 mg PO BID 08/08/17 Latanoprost Ophth [Xalatan 0.005%*] 1 gtt OPTH DAILY 08/08/17 Levobunolol HCl [Betagan] 1 gtt OPTH BID 08/08/17 Metoprolol Succinate [Toprol Xl*] 50 mg PO DAILY 08/08/17 Pravastatin Sodium 40 mg PO DAILY 08/08/17 Prednisol Acet 1% Opth [Pred Forte 1%*] 1 gtt OPTH TID 08/08/17 Cholecalciferol (Vitamin D3) [Vitamin D 5,000 IU Cap*] 5,000 unit PO DAILY #30 cap 08/11/17 Pantoprazole [Protonix Tab*] 40 mg PO DAILY #30 tab 08/11/17 Bacitracin Zinc/Polymyxin B [Poly Bacitracin Ointment] 1 damaris OPTH BID 09/02/17 Spironolactone [Aldactone*] 50 mg PO BID #60 tab 09/10/17 - Past Medical/Surgical History Diabetic: Yes -: DM Type 2 -: Seizure disorder -: Chronic renal disease -: DM Gastroparesis -: DM Neuropathy -: Insomnia -: Obesity -: JAYLA -: Hypertension -: Post traumatic stress disorder -: Schizoaffective disorder -: CHF, diastolic -: I/D of the right elbow -: 2 previous C-sections -: Tubal ligation Psychosocial/ Personal History: She is , she has 2 children, she does not work. - Family History Mother -: Hypertension, Diabetes, Cancer, Other (see notes) Notes: hypothyroid, asthma, breast cancer Father -: Diabetes, Cancer Notes: - stomach/ lung/ prostate cancer, diabetes - Social History Smoking Status: Light Tobacco smoker (1-9 cigarettes/day) Alcohol use: No CD- Drugs: No Caffeine use: Yes Place of Residence: Home Review of Systems 10-point ROS is otherwise unremarkable Physical Examination - Vital Signs Temperature: 97.5 F Blood Pressure: 215/105 Pulse: 74 Respirations: 16 Pulse Ox (%): 95 - Physical Exam General: Alert, In no apparent distress, Oriented x3 HEENT: Atraumatic, PERRLA, Mucous membr. moist/pink, EOMI, Sclerae nonicteric Neck: Supple, 2+ carotid pulse no bruit, No LAD, Without JVD or thyroid abnormality Respiratory: Clear to auscultation bilaterally, Normal air movement Cardiovascular: Regular rate/rhythm, Normal S1 S2 Gastrointestinal: Normal bowel sounds, No tenderness Musculoskeletal: No tenderness Integumentary: No rashes Neurological: Normal gait, Normal speech, Normal strength at 5/5 x4 extr, Normal tone, Normal affect Lymphatics: No axilla or inguinal lymphadenopathy - Diagnosis (Problem(s)) (1) Diabetic gastroparesis Onset Date: 10/19/16 Current Visit: No Status: Chronic Plan: Intractable N/V resolved Most likely 2.2 to Diabetic Gastroparesis PRN reglan (2) Anemia in chronic kidney disease Onset Date: 08/09/17 Current Visit: No Status: Acute Qualifiers: Chronic kidney disease stage: stage 5, not on chronic dialysis Qualified Code(s): N18.5 - Chronic kidney disease, stage 5; D63.1 - Anemia in chronic kidney disease; D63.1 - Anemia in chronic kidney disease (3) Chronic kidney disease, stage 5, kidney failure Onset Date: 08/09/17 Current Visit: No Status: Acute (4) Congestive heart failure, diastolic, left, w/preserved LV function, NYHA class 4 Onset Date: 08/09/17 Current Visit: No Status: Acute (5) CHF (congestive heart failure) Onset Date: 10/19/16 Current Visit: No Status: Chronic Qualifiers: Heart failure type: diastolic Heart failure chronicity: chronic Qualified Code(s): I50.32 - Chronic diastolic (congestive) heart failure (6) COPD (chronic obstructive pulmonary disease) Onset Date: 08/09/17 Current Visit: No Status: Chronic Qualifiers: COPD type: chronic bronchitis Chronic bronchitis type: unspecified Qualified Code(s): J42 - Unspecified chronic bronchitis (7) Diabetes mellitus Onset Date: 10/19/16 Current Visit: No Status: Chronic Qualifiers: Diabetes mellitus type: type 2 Diabetes mellitus [facility] insulin use: without [facility] use Diabetes mellitus complication status: with other specified complication Qualified Code(s): E11.69 - Type 2 diabetes mellitus with other specified complication (8) Gastroesophageal reflux disease Onset Date: 08/09/17 Current Visit: No Status: Chronic Qualifiers: Esophagitis presence: esophagitis presence not specified Qualified Code(s) : K21.9 - Gastro-esophageal reflux disease without esophagitis (9) Hypertension Onset Date: 10/19/16 Current Visit: No Status: Chronic Qualifiers: Hypertension type: essential hypertension - Disposition Disposition: ROUTINE DISCHARGE Condition: GOOD Diet: Regular Activity: Ad monique
--- NOTE | 2017-09-10 18:38 | P.PN ---
Date of Service: 09/10/17 Vital Signs Temp Pulse Resp BP Pulse Ox 97.5 F 74 16 215/105 H 95 09/10/17 16:12 09/10/17 16:12 09/10/17 16:12 09/10/17 16:12 09/10/17 16:12 Assessment/ Plan: Nephrology. Feeling much better today. CPS improved without CP or SOB. Good urine output overnight. No acute events overnight. Vitals, medications, blood work and imaging reviewed in the chart. General: Alert, Oriented x3, Cooperative HEENT: Normocephalic Neck: Supple Cardiovascular: Regular rate/rhythm, No rubs, Edema Gastrointestinal: Soft and benign, Non-distended, No masses Musculoskeletal: No clubbing, No contractures Integumentary: No rashes Neurological: Normal speech External genitalia: Deferred Rectal: Deferred Laboratory Data (last 24 hrs) 09/09/17 00:59: PT 11.1, INR 0.94, APTT 26.9 09/09/17 00:59: Magnesium 1.8 09/09/17 00:59: B-Natriuretic Peptide 3138 H 09/09/17 00:59: Creatinine 3.50 H 09/09/17 00:59: WBC 8.1 D, Hgb 9.3 L, Hct 27.9 L, Plt Count 104 L D 09/09/17 00:59: Sodium 146 H, Potassium 3.5 L, BUN 58 H, Creatinine 3.44 H, Glucose 148 H, Total Bilirubin 0.8, AST 46 H, ALT 31, Alkaline Phosphatase 63, Amylase 71, Lipase 32 Imagings Data: EXAM DESCRIPTION: RAD - Chest Single View - 09/09/2017 1:40 am CLINICAL HISTORY: Cough, chest pain COMPARISON: 09/02/2017, 08/24/2017 FINDINGS: Portable technique limits examination quality. The lungs are grossly clear. The heart is moderately prominent in size. No displaced fractures. IMPRESSION: Cardiomegaly suspected Conclusions/Impression: A/ SANJUANA likely CRS. CKD IV with proteinuria. A/C Diastolic CHF. Hypernatremia. Hypokalemia. Hypocalcemia. Rhabdomyolysis, mild. Anemia in chronic illness. Thrombocytopenia. DM II with CKD. P/ Continue current POC and Medications. Give Epo today. Counseled regarding sodium intake. No NSAIDs. AM labs. Daily weight. Case discussed with Dr. Nagel.
== END 2017-09-10 17:30 | disposition home or self-care (01) ==
LOC: ER 00:33 → INTOOBSV 03:27 → ERHOLD 03:27 → 2ND 05:16
PROVIDERS: ADMIT Internal Medicine; ATTEND Internal Medicine
DX: E11.43 Type 2 diabetes mellitus with diabetic autonomic (poly)neuropathy (principal); K31.84 Gastroparesis; D63.1 Anemia in chronic kidney disease; E11.22 Type 2 diabetes mellitus with diabetic chronic kidney disease; I13.2 Hypertensive heart and chronic kidney disease with heart failure and with stage 5 chronic kidney disease, or end stage renal disease; N18.5 Chronic kidney disease, stage 5; I50.43 Acute on chronic combined systolic (congestive) and diastolic (congestive) heart failure; J44.9 Chronic obstructive pulmonary disease, unspecified; K21.9 Gastro-esophageal reflux disease without esophagitis; Z88.0 Allergy status to penicillin
CPT/HCPCS: 36415 ×2; 71045; 80048 ×2; 80076; 80164; 81025; 82150; 82550; 82553; 82962 ×6; 83690; 83735; 83880; 84100; 84484; 84550; 85014; 85018; 85025 ×2; 85610; 85730; 86850; 86900; 86901; 87086; 87088; 93005; 96365; 96366; 96375; 99285; C9113; G0378 ×2; J0360 ×3; J0885; J2270; J2405; J2550; 81003; 81015

== ENCOUNTER 2017-10-04 08:42 | Emergency (ER) | payer OTHER ==
--- OUTSIDE RECORDS SUMMARY | 2017-10-04 08:45 | XMS REPORT | Clinical Summary ---
:1980 Author Organization [facility] Address [address] [place] [address] Phone Care Team Providers Name Role Phone Unavailable Primary Care Provider Unavailable Allergies Active Allergy Reactions Severity Noted Date Comments Nitrofurantoin Anaphylaxis High 01/03/2017 Liver failure Monohyd/M-Cryst Penicillins Shortness Of Breath High 01/03/2017 Zolpidem Other (See Comments) 01/03/2017 confusion Lisinopril Other (See Comments) 01/03/2017 Unable to remember Guaifenesin Other (See Comments) 01/03/2017 numbness Current Medications Prescription Sig. Disp. Refills Start End Status Date Date divalproex (DEPAKOTE) Take 500 mg by Active 500 MG EC mouth daily. tabletIndications: Depression associated with Bipolar Disorder ondansetron (ZOFRAN) 4 Take 4 mg by mouth Active MG tablet every 6 (six) hours as needed for Nausea. traMADol (ULTRAM) 50 mg Take 50 mg by mouth Active tablet every 6 (six) hours as needed for Pain. pantoprazole (PROTONIX) Take 40 mg by mouth Active 40 MG tablet daily. amLODIPine (NORVASC) 5 Take 10 mg by mouth Active MG tablet daily. hydrALAZINE Take 100 mg by Active (APRESOLINE) 100 MG mouth 3 (three) tablet times daily. magnesium oxide Take 400 mg by Active (MAG-OX) 400 mg tablet mouth daily. metoclopramide HCl Take 10 mg by mouth Active (REGLAN) 10 MG tablet 3 (three) times daily. meclizine (ANTIVERT) 25 Take 12.5 mg by Active MG tablet mouth 3 (three) times daily as needed. sertraline (ZOLOFT) 100 Take by mouth Active MG tabletIndications: daily. Anxiety with Depression medroxyPROGESTERone Inject Active (DEPO-PROVERA) 150 intramuscularly mg/mL injection every 3 (three) months. insulin glargine Inject 5 Units 10 mL 0 Active (LANTUS) 100 unit/mL subcutaneously 7 injection every morning Use as directed . metoprolol (LOPRESSOR) Take 1 tablet (50 0 Active 50 MG tablet mg total) by mouth 7 018 2 (two) times daily. gabapentin (NEURONTIN) Take 300 mg by Discontinued 300 MG mouth daily. 017 capsuleIndications: Neuropathic Pain divalproex (DEPAKOTE) Take 1,000 mg by Discontinued 500 MG 24 hr mouth daily with 017 tabletIndications: dinner. Depression associated with Bipolar Disorder insulin glargine Inject 40 Units Discontinued (LANTUS) 100 unit/mL subcutaneously 017 injection every morning Use as directed . insulin aspart Inject Discontinued protamine-insulin subcutaneously 2 017 aspart (NOVOLOG MIX (two) times daily 70/30) 100 unit/mL with breakfast and (70-30) Soln injection dinner. ondansetron Take 4 mg by mouth Discontinued (ZOFRAN-ODT) 4 MG as needed for 017 disintegrating tablet Nausea. bumetanide (BUMEX) 2 MG Take 2 mg by mouth Discontinued tablet 2 (two) times 017 daily. metoprolol (LOPRESSOR) Take 50 mg by mouth Discontinued 50 MG tablet 2 (two) times 017 daily. spironolactone Take 50 mg by mouth Discontinued (ALDACTONE) 50 MG 2 (two) times 017 tablet daily. terazosin (HYTRIN) 2 MG Take 2 mg by mouth Discontinued capsule 2 (two) times 017 daily. nitrofurantoin, Take 100 mg by Discontinued macrocrystal-monohydrat mouth 2 (two) times 017 e, (MACROBID) 100 MG daily. capsule phenazopyridine Take 200 mg by Discontinued (PYRIDIUM) 200 MG mouth 3 (three) 017 tablet times daily. potassium chloride Take 20 mEq by Discontinued (KLOR-CON) 10 MEQ CR mouth 2 (two) times 017 tabletIndications: x 10 daily. days cyclobenzaprine Take 5 mg by mouth Discontinued (FLEXERIL) 5 MG tablet 3 (three) times 017 daily as needed for Muscle spasms. diazePAM (VALIUM) 2 MG Take 2 mg by mouth Discontinued tablet every 8 (eight) 017 hours as needed for Anxiety. Active Problems Problem Noted Date Liver failure, acute 01/03/2017 SANJUANA (acute kidney injury) (HCC) 01/03/2017 CKD (chronic kidney disease) 01/03/2017 Acute encephalopathy 01/03/2017 Ulcer of toe of left foot (HCC) 01/03/2017 Peripheral neuropathy 01/03/2017 Hyperglycemia due to type 2 diabetes mellitus (HCC) 01/03/2017 Gastroparesis due to DM (HCC) 01/03/2017 Cyclic vomiting syndrome 01/03/2017 Anxiety 01/03/2017 Bipolar disorder (HCC) 01/03/2017 Hypertensive emergency 01/03/2017 Encounters Date Type Specialty Care Team Description 01/15/2017 Abstract Transplant Lili Becerra, Hepatology RN 01/11/2017 Documentation Transplant Silvana Tadeo Hepatology 01/08/2017 Abstract Transplant Silvana Tadeo Hepatology 01/05/2017 Documentation Transplant Joseline Meyers, RN Hepatology 01/04/2017 Abstract Transplant Alyssa Reynoso Hepatology 01/04/2017 Documentation Transplant Silvana Tadeo Hepatology 01/03/2017 Hospital Encounter General Internal Ricardo, Acute liver failure - Medicine Moise with hepatic coma 01/07/2017 MD José Miguel (HCC);Acute Rubén Juan Ramon, encephalopathy;SANJUANA Scout Pearl MD (acute kidney [place]ry, [place], injury) (HCC);Type 2 MD diabetes mellitus Donaldo Alatorre, with hyperglycemia, 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 Alcohol Use Drinks/Week oz/Week Comments No Sex Assigned at Date Recorded Not on file Last Filed Vital Signs Vital Sign Reading Time Taken Blood Pressure 172/95 01/07/2017 2:05 PM CDT Pulse 80 01/07/2017 2:05 PM CDT Temperature 35.9 C (96.6 F) 01/07/2017 7:13 AM CDT Respiratory Rate 14 01/07/2017 7:13 AM CDT Oxygen Saturation 97% 01/07/2017 2:05 PM CDT Inhaled Oxygen Concentration - - Weight 91.2 kg (201 lb 1.6 oz) 01/07/2017 4:38 AM CDT Height 160 cm (5' 3") 01/03/2017 1:36 AM CDT Body Mass Index 35.62 01/07/2017 4:38 AM CDT Plan of Treatment Health Maintenance Due Date Last Done Comments INFLUENZA VACCINE 03/21/2018 Results RHYTHM STRIP - SCAN (01/08/2017 2:23 PM)POC-Glucose meter (01/07/2017 12:08 PM) Only the most recent of18 resultswithin the time period is included. Component Value Ref Range POC-Glucose Meter 154 (H)Comment: TESTED AT [address] 70 - 110 mg/[place] [address] Specimen Performing Laboratory Blood [address] [address] aPTT (01/07/2017 5:03 AM)Only the most recent of6 resultswithin the time period is included. Component Value Ref Range PTT 42.2 (H) 22.5 - 36.0 seconds Specimen Performing Laboratory Blood - Arm, [address] [address] Prothrombin time/INR (01/07/2017 5:03 AM)Only the most recent of8 resultswithin the time period is included. Component Value Ref Range Protime 14.8 (H) 11.7 - 14.7 seconds INR 1.2 <=5.9 Specimen Performing Laboratory Blood - Arm, Right [facility] [address] [address] Narrative RECOMMENDED COUMADIN/WARFARIN INR THERAPY RANGES STANDARD DOSE: 2.0 - 3.0 Includes: PROPHYLAXIS for venous thrombosis, systemic embolization; TREATMENT for venous thrombosis and/or pulmonary embolus. HIGH RISK: Target INR is 2.5-3.5 for patients with mechanical heart valves. Fibrinogen (01/07/2017 5:03 AM)Only the most recent of6 resultswithin the time period is included. Component Value Ref Range Fibrinogen 368 225 - 434 mg/dl Specimen Performing Laboratory Blood - Arm, [address] [address] Magnesium (01/07/2017 5:03 AM)Only the most recent of3 resultswithin the time period is included. Component Value Ref Range Magnesium 2.1 1.6 - 2.6 mg/dL Specimen Performing Laboratory Blood - Arm, [address] [address] Hepatic function panel (01/07/2017 5:03 AM)Only the most recent of5 resultswithin the time period is included. Component Value Ref Range Protein, Total 5.1 (L) 6.0 - 8.3 gm/dL Albumin 2.2 (L) 3.5 - 5.0 g/dL Total Bilirubin 1.1 0.2 - 1.2 mg/dL Bilirubin, Direct 0.7 (H) 0.1 - 0.5 mg/dL Alkaline Phosphatase 78 40 - 150 U/L AST 256 (H) 5 - 34 U/L ALT 513 (H) 6 - 55 U/L Specimen Performing Laboratory Blood - Arm, [address] [address] Comprehensive metabolic panel (01/07/2017 5:03 AM)Only the most recent of6 resultswithin the time period is included. Component Value Ref Range Protein, Total 5.1 (L) 6.0 - 8.3 gm/dL Albumin 2.2 (L) 3.5 - 5.0 g/dL Alkaline Phosphatase 78 40 - 150 U/L Total Bilirubin 1.1 0.2 - 1.2 mg/dL Sodium 142 136 - 145 meq/L Potassium 3.6 3.5 - 5.1 meq/L Chloride 106 98 - 107 meq/L CO2 27 22 - 29 meq/L BUN 29 (H) 7 - 21 mg/dL Creatinine 2.70 (H) 0.57 - 1.25 mg/dL Glucose 79 70 - 105 mg/dL Calcium 8.2 (L) 8.4 - 10.2 mg/dL AST 256 (H) 5 - 34 U/L ALT 513 (H) 6 - 55 U/L EGFR 20Comment: ESTIMATED GFR IS NOT ACCURATE mL/min/1.73 sq m CREATININE CLEARANCE IN PREDICTING GLOMERULAR FILTRATION RATE. ESTIMATED GFR IS NOT APPLICABLE FOR DIALYSIS PATIENTS. Specimen Performing Laboratory Blood - Arm, [facility] [address] [place] [address] XR chest 1 view portable / bedside (01/06/2017 12:00 PM)Only the most recent of2 resultswithin the time period is included. Specimen Performing Laboratory GE RIS Narrative FINAL REPORT CLINICAL HISTORY: dyspnea coarse breath sounds TECHNIQUE: 1 view of the chest. COMPARISON: 01/03/2017 IMPRESSION: There are no focal infiltrates or effusions. There is lingular atelectasis. The cardiomediastinal silhouette is magnified by technique. The osseous structures appear intact. Signed: Slava Hill MD Report Verified Date/Time:01/06/2017 13:00:17 Reading Location: [facility] Radiology Reading Room Procedure Note Interface, External Ris In - 01/06/2017 1:02 PM CDT FINAL REPORT CLINICAL HISTORY: dyspnea coarse breath sounds TECHNIQUE: 1 view of the chest. COMPARISON: 01/03/2017 IMPRESSION: There are no focal infiltrates or effusions. There is lingular atelectasis. The cardiomediastinal silhouette is magnified by technique. The osseous structures appear intact. Signed: Slava Hill MD Report Verified Date/Time: 01/06/2017 13:00:17 Reading Location: [facility] Radiology Reading Room mandible min 4 views (01/06/2017 12:00 PM) Specimen Performing Laboratory GE RIS Narrative FINAL REPORT COMPARISON: None. TECHNIQUE: Mandible radiograph five views. FINDINGS: No osseous lesion of the mandible is demonstrated. Dental amalgam and lower lip stud are noted. Paranasal sinuses and partial imaging of the cervical vertebral column are unremarkable. IMPRESSION: As above. Signed: Sandeep Dockery MD Report Verified Date/Time:01/06/2017 13:24:55 Reading Location: [facility] Reading Room Procedure Note Interface, External Ris In - 01/06/2017 1:27 PM CDT FINAL REPORT COMPARISON: None. TECHNIQUE: Mandible radiograph five views. FINDINGS: No osseous lesion of the mandible is demonstrated. Dental amalgam and lower lip stud are noted. Paranasal sinuses and partial imaging of the cervical vertebral column are unremarkable. IMPRESSION: As above. 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 Component Value Ref Range Factor V Activity 90.0 60.0 - 150.0 % Specimen Performing Laboratory Blood [address] [address] Narrative Effective 10/24/2013: Reference Range Change-Adult only New: 60.0-150.0 Previous: 50.0-150.0 Ammonia (01/05/2017 2:48 AM)Only the most recent of2 resultswithin the time period is included. Component Value Ref Range Ammonia 29 18 - 72 mol/L Specimen Performing Laboratory Blood [address] [address] Manual Differential (01/05/2017 2:47 AM) Specimen Performing Laboratory Blood [address] [address] CBC with platelet count + automated diff (01/05/2017 2:47 AM)Only the most recent of4 resultswithin the time period is included. Component Value Ref Range WBC 2.9 (L) 4.0 - 10.0 K/L RBC 3.10 (L) 4.00 - 5.00 M/L Hemoglobin 9.5 (L) 12.0 - 15.0 GM/DL Hematocrit 29.2 (L) 36.0 - 45.0 % MCV 94.4 82.0 - 99.0 fL MCH 30.8 27.0 - 33.0 pg MCHC 32.6 32.0 - 36.0 GM/DL RDW 15.2 (H) 10.3 - 14.2 % Platelets 118 (L) 150 - 430 K/CU MM MPV 9.2 6.5 - 10.5 fL nRBC 0 0 - 0 /100 WBC % Neutros 59 % % Lymphs 27 % % Monos 10 % % Eos 4 % % Baso 1 % # Neutros 1.71 (L) 1.80 - 8.00 K/L # Lymphs 0.78 (L) 1.48 - 4.50 K/L # Monos 0.29 0.00 - 1.30 K/L # Eos 0.11 0.00 - 0.50 K/L # Baso 0.02 0.00 - 0.20 K/L Specimen Performing Laboratory Blood [address] [address] Narrative 0.00 CBC with platelet count + automated diff (01/05/2017 2:47 AM)Only the most recent of4 resultswithin the time period is included. Specimen Performing Laboratory Blood Narrative The following orders were created for panel order CBC with platelet count + automated diff. Procedure Abnormality Status --------- ------ CBC with platelet count ...[[id number]]AbnormalFinal result Manual Differential[[id number]] Fi nal result Please view results for these tests on the individual orders. T Spot TB (01/04/2017 1:01 PM) Component Value Ref Range T-Spot TB Negative Neg Ctrl Spot Count 0 Panel A Spot 0 Panel B Spot [address] >20 Scan Result Specimen Performing Laboratory Blood [facility] [address] [facility], [address] [place] [address] CT abdomen/pelvis without iv contrast (01/04/2017 12:24 PM) Specimen Performing Laboratory RIS Narrative FINAL REPORT CT scan of the abdomen and pelvis. CLINICAL HISTORY: Drop in hemoglobin and abdominal pain. COMPARISON STUDY: March 16, 2012. TECHNIQUE: Contiguous helical slices were acquired through the abdomen and pelvis without the administration of oral or intravenous contrast. This exam was performed according to our department dose optimization program which includes automated exposure control, adjustment of the mA and/or kV according to the patient's size and/or use of iterative reconstruction technique. FINDINGS: Bilateral trace pleural effusions are seen with adjacent atelectasis or consolidation. Trace pericardial fluid is seen. The abdomen and pelvis are limited by lack of contrast. The liver is within normal limits. The spleen is enlarged measuring 15.3 cm in AP diameter. Cholelithiasis is seen with no biliary dilatation. The pancreas, adrenal glands and kidneys are unremarkable. Diffuse anasarca is seen with minimal ascites. There are no dilated loops of bowel seen to suggest obstruction. A Carlisle catheter is present in the bladder. The aorta is normal in caliber. No suspicious adenopathy is seen. No evidence of bleeding is seen. Bone windows demonstrate scattered tiny sclerotic foci, most likely bone islands. IMPRESSION: 1. Diffuse anasarca, trace pleural effusions, trace pericardial effusion and mild ascites suggestive of third spacing. 2. Splenomegaly. 3. Cholelithiasis. 4. No CT evidence of hemorrhage. The study is limited by lack of contrast. Signed: Marcel Maravilla MD Report Verified Date/Time:01/04/2017 13:42:00 Reading Location: [facility] Diagnostic Imaging Reading Room - [place] [address] Procedure Note Interface, External Ris In - 01/04/2017 1:44 PM CDT FINAL REPORT CT scan of the abdomen and pelvis. CLINICAL HISTORY: Drop in hemoglobin and abdominal pain. COMPARISON STUDY: March 16, 2012. TECHNIQUE: Contiguous helical slices were acquired through the abdomen and pelvis without the administration of oral or intravenous contrast. This exam was performed according to our department dose optimization program which includes automated exposure control, adjustment of the mA and/or kV according to the patient's size and/or use of iterative reconstruction technique. FINDINGS: Bilateral trace pleural effusions are seen with adjacent atelectasis or consolidation. Trace pericardial fluid is seen. The abdomen and pelvis are limited by lack of contrast. The liver is within normal limits. The spleen is enlarged measuring 15.3 cm in AP diameter. Cholelithiasis is seen with no biliary dilatation. The pancreas, adrenal glands and kidneys are unremarkable. Diffuse anasarca is seen with minimal ascites. There are no dilated loops of bowel seen to suggest obstruction. A Carlisle catheter is present in the bladder. The aorta is normal in caliber. No suspicious adenopathy is seen. No evidence of bleeding is seen. Bone windows demonstrate scattered tiny sclerotic foci, most likely bone islands. IMPRESSION: 1. Diffuse anasarca, trace pleural effusions, trace pericardial effusion and mild ascites suggestive of third spacing. 2. Splenomegaly. 3. Cholelithiasis. 4. No CT evidence of hemorrhage. The study is limited by lack of contrast. Signed: Marcel Maravilla MD Report Verified Date/Time: 01/04/2017 13:42:00 Reading Location: [facility] Diagnostic Imaging Reading Room - [place] [address] myocardial perfusion PET (rest and stress) (01/04/2017 12:07 PM) Specimen Performing Laboratory [facility] Narrative FINAL REPORT PROCEDURE: Rest/Stress MYOCARDIAL PERFUSION PET with regadenoson\\XA9\\ CPT CODE: 04505 INDICATION: Preoperative risk stratification for liver transplant HISTORY: Cardiac risk factors: Diabetes, hypertension. Other cardiovascular history: Congestive heart failure, atrial arrhythmia. Current cardiovascular-related medications: Norvasc, heparin, metoprolol, hydralazine. PROTOCOL: Limited low-dose CT imaging was performed for attenuation correction. 40.1 mCi of Rb-82 chloride was injected iv at rest, and gated PET (positron emission tomography) images were obtained. Subsequently, 40.1 mCi of Rb-82 chloride was injected iv at expected peak pharmacologic effect, and gated PET images were obtained. PRELIMINARY STRESS TEST DATA FROM NONINVASIVE CARDIOLOGY: Pharmacologic stress was by 10-second iv infusion of 0.4 mg of regadenoson. Radiotracer was injected 30 seconds after start of stress. Heart rate was 70 beats/min at rest and 74 beats/min (39% of MPHR) at tracer injection. BP was 160/81 mmHg at rest and 156/81 mmHg at tracer injection. Stress was stopped for predetermined endpoint. The patient experienced dyspnea; treatment was not required. Preliminary ECG evaluation revealed sinus rhythm at rest and no ischemic changes with stress. (Final ECG interpretation and other stress and monitoring data are reported separately by Cardiology.) IMAGING FINDINGS: Study quality is good. Images obtained after rest and stress injections show normal LV activity. LV and RV volumes appear normal. Gated images obtained at rest and with stress show normal LV wall motion and thickening. LVEF at rest is 60%. LVEF at stress is 64%. IMPRESSION: 1. Normal study.2. Appropriate pharmacologic stress.3. Normal myocardial perfusion.4. Normal resting LV function. No deterioration of function is noted with pharmacologic stress.5. Normal extracardiac tracer distribution.6. No previous [facility] study for comparison. NONINVASIVE RISK STRATIFICATION: The above findings are considered low risk (<1% annual mortality rate) based on the following criterion: - Normal or small myocardial perfusion defect at rest or with stress (JACC. 2012;59(9):857-81.) Signed: Portia Guillen MD Report Verified Date/Time:01/04/2017 16:43:24 Reading Location: [address] Reading Room Procedure Note Interface, External Ris In - 01/19/2017 2:51 PM CDT FINAL REPORT PROCEDURE: Rest/Stress MYOCARDIAL PERFUSION PET with regadenoson\\XA9\\ CPT CODE: 70221 INDICATION: Preoperative risk stratification for liver transplant HISTORY: Cardiac risk factors: Diabetes, hypertension. Other cardiovascular history: Congestive heart failure, atrial arrhythmia. Current cardiovascular-related medications: Norvasc, heparin, metoprolol, hydralazine. PROTOCOL: Limited low-dose CT imaging was performed for attenuation correction. 40.1 mCi of Rb-82 chloride was injected iv at rest, and gated PET (positron emission tomography) images were obtained. Subsequently, 40.1 mCi of Rb-82 chloride was injected iv at expected peak pharmacologic effect, and gated PET images were obtained. PRELIMINARY STRESS TEST DATA FROM NONINVASIVE CARDIOLOGY: Pharmacologic stress was by 10-second iv infusion of 0.4 mg of regadenoson. Radiotracer was injected 30 seconds after start of stress. Heart rate was 70 beats/min at rest and 74 beats/min (39% of MPHR) at tracer injection. BP was 160/81 mmHg at rest and 156/81 mmHg at tracer injection. Stress was stopped for predetermined endpoint. The patient experienced dyspnea; treatment was not required. Preliminary ECG evaluation revealed sinus rhythm at rest and no ischemic changes with stress. (Final ECG interpretation and other stress and monitoring data are reported separately by Cardiology.) IMAGING FINDINGS: Study quality is good. Images obtained after rest and stress injections show normal LV activity. LV and RV volumes appear normal. Gated images obtained at rest and with stress show normal LV wall motion and thickening. LVEF at rest is 60%. LVEF at stress is 64%. IMPRESSION: 1. Normal study. 2. Appropriate pharmacologic stress. 3. Normal myocardial perfusion. 4. Normal resting LV function. No deterioration of function is noted with pharmacologic stress. 5. Normal extracardiac tracer distribution. 6. No previous [facility] study for comparison. NONINVASIVE RISK STRATIFICATION: The above findings are considered low risk (<1% annual mortality rate) based on the following criterion: - Normal or small myocardial perfusion defect at rest or with stress (JACC. 2012;59(9):857-81.) Signed: Portia Guillen MD Report Verified Date/Time: 01/04/2017 16:43:24 Reading Location: [address] [id number] [facility] [place] Treadmill tolerance(Non-Nuclear Treadmill) (01/04/2017 11:45 AM) Specimen Performing Laboratory [employer] Narrative Protocol Name Regadenoson Time In Exercise Phase 00:01:00 Max. Systolic BP 156 mmHg Max Diastolic BP 81 mmHg Max Heart Rate 74 BPM Max Predicted Heart Rate 186 BPM Reason For Termination Predetermined end point Reason for Test Pre Op Cardiac Clearance Target HR Formula (220 - Age)*100% Arrhythmias none Resting ECG Normal sinus rhythm nonspecific T wave abnormality ST Changes No Significant Changes Overall Impression Indeterminate due to pharmacological stress Chest Pain none HR Response To Exercise BP Response To Exercise NORVASC Heparin Inj, Metoprolol hydralazine Confirmed by fellow Marnie Recinos ([id number]) on 01/04/2017 1:15:22 PM Confirmed by Becka FITZGERALD MICHAEL ([id number]) on 01/05/2017 7:38:10 AM Procedure Note Interface, External Ris In - 01/05/2017 7:38 AM CDT Protocol Name Regadenoson Time In Exercise Phase 00:01:00 Max. Systolic BP 156 mmHg Max Diastolic BP 81 mmHg Max Heart Rate 74 BPM Max Predicted Heart Rate 186 BPM Reason For Termination Predetermined end point Reason for Test Pre Op Cardiac Clearance Target HR Formula (220 - Age)*100% Arrhythmias none Resting ECG Normal sinus rhythm nonspecific T wave abnormality ST Changes No Significant Changes Overall Impression Indeterminate due to pharmacological stress Chest Pain none HR Response To Exercise BP Response To Exercise NORVASC Heparin Inj, Metoprolol hydralazine Confirmed by fellow Marnie Recinos ([id number]) on 01/04/2017 1:15:22 PM Confirmed by Becka FITZGERALD MICHAEL ([id number]) on 01/05/2017 7:38:10 AM US abdomen limited (01/04/2017 4:55 AM) Specimen Performing Laboratory [facility] Narrative FINAL REPORT INDICATION: Pt with acute liver failure. Rule out budd chiari with doppler. COMPARISON: January 04, 2016 TECHNIQUE: Real-time becerra-scale transabdominal and color Doppler ultrasound. FINDINGS: Liver: Size: 18.8cm. Echogenicity: Normal. Masses/lesions: None. Surface Nodularity: None. Intrahepatic bile ducts: Normal. Common bile duct: 0.5cm. MPV: 0.9cm. Gallbladder: Stones: Multiple. Sludge: None. Wall thickness: 0.3 cm. Pericholecystic fluid: None. Sonographic Garcia's sign: No sonographic Garcia's sign. Pancreas: Head and uncinate process: Unremarkable. Body and tail: Not well-seen. Right kidney: Size: 11.3 x 4.3 x 4.9 cm. Parenchyma: Normal echogenicity. No cysts. No stones. Hydronephrosis: None. Ascites: None. Regional Vasculature: The visible abdominal aorta, IVC and hepatic veins are patent. Color and Spectral imaging: MPV: Diameter: 0.9 Flow: Hepatopedal. Velocity: 24.4 cm/sec Filling defects: None Left and right portal veins: Patent. Flow: Antegrade Filling defects: None. Hepatic arteries: Patent RI proper hepatic: 0.7 RI right hepatic: 0.6 RI left hepatic: 0.8 IVC, Hepatic venous confluence, right HV, middle HV and left HV are patent. IMPRESSION: Unremarkable abdominal ultrasound. No change from the prior date. Patent portal system without filling defect or evidence of flow disruption or collateralization. Signed: JR Barkley Robert MD Report Verified Date/Time:01/04/2017 05:34:37 Reading Location: [address] Transitional Reading Room Procedure Note Interface, External Ris In - 01/04/2017 5:36 AM CDT FINAL REPORT INDICATION: Pt with acute liver failure. Rule out budd chiari with doppler. COMPARISON: January 04, 2016 TECHNIQUE: Real-time becerra-scale transabdominal and color Doppler ultrasound. FINDINGS: Liver: Size: 18.8cm. Echogenicity: Normal. Masses/lesions: None. Surface Nodularity: None. Intrahepatic bile ducts: Normal. Common bile duct: 0.5cm. MPV: 0.9cm. Gallbladder: Stones: Multiple. Sludge: None. Wall thickness: 0.3 cm. Pericholecystic fluid: None. Sonographic Garcia's sign: No sonographic Garcia's sign. Pancreas: Head and uncinate process: Unremarkable. Body and tail: Not well-seen. Right kidney: Size: 11.3 x 4.3 x 4.9 cm. Parenchyma: Normal echogenicity. No cysts. No stones. Hydronephrosis: None. Ascites: None. Regional Vasculature: The visible abdominal aorta, IVC and hepatic veins are patent. Color and Spectral imaging: MPV: Diameter: 0.9 Flow: Hepatopedal. Velocity: 24.4 cm/sec Filling defects: None Left and right portal veins: Patent. Flow: Antegrade Filling defects: None. Hepatic arteries: Patent RI proper hepatic: 0.7 RI right hepatic: 0.6 RI left hepatic: 0.8 IVC, Hepatic venous confluence, right HV, middle HV and left HV are patent. IMPRESSION: Unremarkable abdominal ultrasound. No change from the prior date. Patent portal system without filling defect or evidence of flow disruption or collateralization. Signed: JR Barkley Robert MD Report Verified Date/Time: 01/04/2017 05:34:37 Reading Location: [facility] C0[facility] Transitional Reading Room 12 lead (01/03/2017 1:16 PM) Specimen Performing Laboratory Inside Secure MUSE Narrative Ventricular Rate 81 BPM Atrial Rate 81 BPM P-R Interval 146 ms QRS Duration 92 ms Q-T Interval 422 ms QTC Calculation(Bazett) 490 ms P [place] 57 degrees R [place] -10 degrees T [place] 135 degrees Normal sinus rhythm T wave abnormality, consider lateral ischemia Prolonged QT Abnormal ECG When compared with ECG of 21-MAR-2012 10:30, QT has lengthened Confirmed by Becka BROWN BASANT ([id number]) on 01/04/2017 11:42:50 AM Procedure Note Interface, External Ris In - 01/04/2017 11:42 AM CDT Ventricular Rate 81 BPM Atrial Rate 81 BPM P-R Interval 146 ms QRS Duration 92 ms Q-T Interval 422 ms QTC Calculation(Bazett) 490 ms P [place] 57 degrees R [place] -10 degrees T [place] 135 degrees Normal sinus rhythm T wave abnormality, consider lateral ischemia Prolonged QT Abnormal ECG When compared with ECG of 21-MAR-2012 10:30, QT has lengthened Confirmed by Becka BROWN BASANT ([id number]) on 01/04/2017 11:42:50 AM Blood typing, automated - - at seperate draw time from initial type and screen (01/03/2017 12:43 PM) Component Value Ref Range ABO/RH AUTOMATED (CHANDNIAKER) B POSITIVE Specimen Performing Laboratory Blood [facility] [address] [place] [address] Blood gas, arterial (01/03/2017 12:06 PM) Component Value Ref Range pH, Arterial 7.44 7.35 - 7.45 pCO2, Arterial 55 (H) 35 - 45 mmHg pO2, Arterial 99 (H) 80 - 90 mmHg O2 Sat, Arterial 97.4 (H) 96.0 - 97.0 % HCO3, Arterial 36 (H) 21 - 29 mmol/L Base Excess, Arterial 10.3 (H) -2.0 - 3.0 mmol/L Patient Temperature 37.5 C FIO2 28.0 % Specimen Performing Laboratory Blood, Arterial - Arm, Right [facility] [address] [place] [address] 2D Echo W/Doppler(CW/PW/Color) (01/03/2017 11:56 AM) Specimen Performing Laboratory DIGISONICS Narrative Echocardiography Laboratory [address] [place] [address] Voice:[phone] Transthoracic Echocardiogram Pat.Name:CATHI ROWLEY Pat.ID:[id number] St.Date: 01/03/2017 Refer.MD:MOISE BHAKTA Exam Time: 11:56:00 AM Study Type:Echo Complete Height:63inWeight:181lb BSA: 1.86 m2 DOBAge:1980,36Y Sex: FEMALEBP:178/111 HR:88 bpmSonogrphr: Rose Smith [facility] Pat. Stat.:Inpatient Room:[facility] Reason for Study:Known or suspected heart failure History / Clinical:Liver failure, CKD, Former Smoker Procedures:2D ECHO W/ DOPPLER (CW/PW/COLOR), Agitated saline done SUMMARY: Left ventricular chamber size (by PSLAX dimension) is normal (female - LVIDd 3.8-5.2 cm). All of the LV segments contract normally. Estimated LVEF by qualitative assessment is normal (55-60%). Grade 1 diastolic dysfunction (impaired relaxation and low-normal LA pressure). RV chamber size is mildly enlarged. Global RV systolic function is normal. IV saline contrast injection was negative for a PFO (patent foramen ovale) at rest and post Valsalva. IV saline contrast with delayed imaging is negative for intra pulmonic shunting. Estimated Peak systolic PA pressure is 40-45 mm Hg. A trivial pericardial effusion is present. FINDINGS: Rhythm/BP: Regular sinus rhythm during the exam. LV: All of the LV segments contract normally. Global LV systolic functionis normal. No evidence of LV hypertrophy. Left ventricularchamber size (by PSLAX dimension) is normal (female-LVIDd 3.8-5.2 cm). Estimated LVEF by qualitative assessmentis normal (55-60%). Grade 1 diastolic dysfunction(impaired relaxation and low-normal LA pressure).Normal (cardiac index 2-3 L/min/m2) cardiac outputstate at rest is noted. LA: LA size is normal (16-34 ml/m2). RV: RV chamber size is mildly enlarged. Global RV systolic functionis normal. RA: RA cavity size is mildly enlarged. IAS:IV saline contrast injection was negative for a PFO (patent foramenovale) at rest and post Valsalva. IV saline contrastwith delayed imaging is negative for intra pulmonicshunting. AV: Normal AoV structure. MV: A trace of mitral regurgitation. Normal MV structure. TV: Moderate tricuspid regurgitation. Mild TV leaflet thickening.Estimated Peak systolic PA pressure is 40- 45 mm Hg. PV: Normal PV structure and function. Mild pulmonary regurgitation. AO: Aortic root size (Sinus of Valsalva diameter) is normal. Proximalascending aorta size is normal. Pericard: A trivial pericardial effusion is present. Systemic Veins: The inferior vena cava size is normal. The estimated RApressure by IVC dynamics 5-10 mmHg. PA/PV/Pleural: The right upper pulmonary vein (RUPV) is normal. Comparison: No prior exam available for comparison. MEASUREMENTS: 2D LA Sng Plane LA Vol63.5 mlIndex 34.1 ml/m2 LA Area 19.7 cm2(8.8-23.4) RA Sng Plane RA Vol72.6 mlIndex 39.1 ml/m2 RA Area 22.2 cm2(8.3-19.5)* Aorta Ao Asc2.84 cm (2.1-3.4) LVOT Stroke Vol & Cardiac Out LVOT1.92 cm Parasternal Long [place] Ao An 1.92 cm (1.4-2.6) LV%fs 35.4 %(25-46) Ao Rtd2.97 cmLVPWd0.963 cm IVSd 0.963 cm LA Ds 3.58 cm (2.3-3.8) LVIDd 5.05 cm (4.3-5.1) LV Wmn 0.963 cm LVIDs 3.26 cm (2-4) Right Ventricle RV Dim4.73 cm DOPPLER LVOT Stroke Vol & Cardiac Out LVOT VTI24.3 cmLVOT CO 5.34 l/min LVOT SV 70.4 mlLVOT CI 2.87 l/min/m2 Aortic Valve SVi (LVOT)37.9 MMODE TAPSE TAPS Dim1.95 cm Signed 01/03/2017 02:12 PM Chandler Claros M.D. Procedure Note Interface, External Ris In - 01/03/2017 2:12 PM CDT Echocardiography Laboratory [address] [place] [address] Voice: [phone] Transthoracic Echocardiogram Pat.Name: CATHI ROWLEY Pat.ID: [id number] .Date: 01/03/2017 Refer.MD: MOISE BHAKTA Exam Time: 11:56:00 AM Study Type:Echo Complete Height: 63in Weight: 181lb BSA: 1.86 m2 Age: 6 1980,36Y Sex: FEMALE BP: 178/111 HR: 88 bpm Sonogrphr: Rose Smith [facility] Pat. Stat.:Inpatient Room: [facility] Reason for Study:Known or suspected heart failure History / Clinical:Liver failure, CKD, Former Smoker Procedures:2D ECHO W/ DOPPLER (CW/PW/COLOR), Agitated saline done SUMMARY: Left ventricular chamber size (by PSLAX dimension) is normal (female - LVIDd 3.8-5.2 cm). All of the LV segments contract normally. Estimated LVEF by qualitative assessment is normal (55-60%). Grade 1 diastolic dysfunction (impaired relaxation and low-normal LA pressure). RV chamber size is mildly enlarged. Global RV systolic function is normal. IV saline contrast injection was negative for a PFO (patent foramen ovale) at rest and post Valsalva. IV saline contrast with delayed imaging is negative for intra pulmonic shunting. Estimated Peak systolic PA pressure is 40-45 mm Hg. A trivial pericardial effusion is present. FINDINGS: Rhythm/BP: Regular sinus rhythm during the exam. LV: All of the LV segments contract normally. Global LV systolic function is normal. No evidence of LV hypertrophy. Left ventricular chamber size (by PSLAX dimension) is normal (female - LVIDd 3.8-5.2 cm). Estimated LVEF by qualitative assessment is normal (55-60%). Grade 1 diastolic dysfunction (impaired relaxation and low-normal LA pressure). Normal (cardiac index 2-3 L/min/m2) cardiac output state at rest is noted. LA: LA size is normal (16-34 ml/m2). RV: RV chamber size is mildly enlarged. Global RV systolic function is normal. RA: RA cavity size is mildly enlarged. IAS: IV saline contrast injection was negative for a PFO (patent foramen ovale) at rest and post Valsalva. IV saline contrast with delayed imaging is negative for intra pulmonic shunting. AV: Normal AoV structure. MV: A trace of mitral regurgitation. Normal MV structure. TV: Moderate tricuspid regurgitation. Mild TV leaflet thickening. Estimated Peak systolic PA pressure is 40-45 mm Hg. PV: Normal PV structure and function. Mild pulmonary regurgitation. AO: Aortic root size (Sinus of Valsalva diameter) is normal. Proximal ascending aorta size is normal. Pericard: A trivial pericardial effusion is present. Systemic Veins: The inferior vena cava size is normal. The estimated RA pressure by IVC dynamics 5-10 mmHg. PA/PV/Pleural: The right upper pulmonary vein (RUPV) is normal. Comparison: No prior exam available for comparison. MEASUREMENTS: 2D LA Sng Plane LA Vol 63.5 ml Index 34.1 ml/m2 LA Area 19.7 cm2 (8.8-23.4) RA Sng Plane RA Vol 72.6 ml Index 39.1 ml/m2 RA Area 22.2 cm2 (8.3-19.5)* Aorta Ao Asc 2.84 cm (2.1-3.4) LVOT Stroke Vol & Cardiac Out LVOT 1.92 cm Parasternal Long [place] Ao An 1.92 cm (1.4-2.6) LV%fs 35.4 % (25-46) Ao Rtd 2.97 cm LVPWd 0.963 cm IVSd 0.963 cm LA Ds 3.58 cm (2.3-3.8) LVIDd 5.05 cm (4.3-5.1) LV Wmn 0.963 cm LVIDs 3.26 cm (2-4) Right Ventricle RV Dim 4.73 cm DOPPLER LVOT Stroke Vol & Cardiac Out LVOT VTI 24.3 cm LVOT CO 5.34 l/min LVOT SV 70.4 ml LVOT CI 2.87 l/min/m2 Aortic Valve SVi (LVOT) 37.9 MMODE TAPSE TAPS Dim 1.95 cm Signed 01/03/2017 02:12 PM Chandler Claros M.D. Type and screen, automated (01/03/2017 11:53 AM) Component Value Ref Range ABO/RH AUTOMATED (BEAKER) B POSITIVE Ab Scrn NEGATIVE Specimen Performing Laboratory Blood [facility] [address] [place] [address] Clostridium difficile Toxin PCR (01/03/2017 11:52 AM) Component Value Ref Range C.Diff Toxin, PCR Not Detected Not Detected Specimen Performing Laboratory Stool - Rectum [address] [address] Narrative This qualitative real-time polymerase chain reaction assay detects the tcdB gene, encoded on the C.difficile pathogenicity locus (PaLoc).The product of tcdB , toxin B, is a cytotoxin essential for causing C.difficile-associated disease (CDAD) and is found in virtually all toxigenic C.difficile. This assay is performed for patients suspected of having either community- acquired or nosocomial CDAD.Accordingly, only symptomatic patients should be tested and formed stools will be rejected unless ileus is present (i.e., specified when ordering).Patients may be colonized with toxigenic C.difficile strains not causing active disease; therefore, clinical correlation is needed when deciding how to manage patients with a positive test result. The assay has not been validated as a test of cure as amplifiable nucleic acid may persist after effective treatment; therefore, follow-up testing of a positive result is not recommended. Calcium, Ionized (01/03/2017 11:52 AM) Component Value Ref Range Calcium, Ion 1.05 (L) 1.12 - 1.27 mmol/L pH, Blood 7.43 Specimen Performing Laboratory Blood - Line, [place] [address] Screen, urine (01/03/2017 11:52 AM) Component Value Ref Range Preg Test, Ur Negative Specimen Performing Laboratory Urine - Urine, [place] [address] [address] Urinalysis w/ Microscopic (01/03/2017 11:52 AM) Component Value Ref Range Color, UA Yellow Clarity, UA Clear Specific [place], UA 1.013 1.001 - 1.035 pH, UA 6.0 5.0 - 8.0 Protein, UA 300 mg/dL (A) Negative Glucose, UA 30 mg/dL (A) Negative Ketones, UA Trace (A) Negative Bilirubin, UA Positive (A) Negative Blood, UA Moderate (A) Negative Nitrite, UA Negative Negative Leukocytes, UA Moderate (A) Negative Urobilinogen, UA 2.0 (H) 0.2 - 1.0 mg/dL RBC, UA 2 /HPF WBC, UA 41 /HPF Hyaline Casts, UA 10 /LPF Amorphous Crystals Rare Specimen Source Urine, [place] Specimen Performing Laboratory Urine - Urine, [place] [address] [address] Iron, TIBC, % sat. (without ferritin) (01/03/2017 11:51 AM) Component Value Ref Range Iron 59 40 - 160 ug/dL TIBC 160 (L) 250 - 450 ug/dL Iron % Saturation 37 20 - 55 % Specimen Performing Laboratory Blood - Line, [place] [address] [address] Actin (Smooth Muscle) Antibody, IgG (01/03/2017 11:51 AM) Component Value Ref Range Anti-Smooth Muscle Ab <20 See Note: U Comment: Reference Range: <20 NEGATIVE > OR=20 POSITIVE Antibodies recognizing actin are the main component of smooth muscle antibodies associated with autoimmune liver disease. Actin antibodies are found in approximately 75% of patients with autoimmune hepatitis (AIH) type 1, approximately 65% of patients with autoimmune cholangitis, approximately 30% of patients with primary biliary cirrhosis, and approximately 2% of healthy people. High values are closely correlated with AIH type 1. Specimen Performing Laboratory Blood - Line, Venous [facility] [place] [address] [place] [address] Narrative Performing Lab [facility] [address] [place] [address] Yared Costa MD Carbohydrate antigen 19-9 (CA 19-9) (01/03/2017 11:51 AM) Component Value Ref Range CA 19-9 9 <34 U/mL Comment: This test was performed using the Siemens ([employer]) Chemiluminescent method. Values obtained from different assay methods cannot be used interchangeably. CA19-9 levels, regardless of value, should not be interpreted as absolute evidence of the presence or absence of disease. Specimen Performing Laboratory Blood - Line, Venous [facility] [place] [address] [place] [address] Narrative Performing Lab [facility] [address] [address] Yared Costa MD Ceruloplasmin (01/03/2017 11:51 AM) Component Value Ref Range Ceruloplasmin 35 18 - 53 mg/dL Comment: Adults:Males: 18-36 mg/dL Females: 18-53 mg/dL Pediatrics:Males (mg/dL)Females (mg/dL) 0-30 Days 8-25 3-28 31 Days-11 Month 15-4815-43 1-3 Lsrcl49-7448-41 4-6 Qmnfw16-9560-17 7-9 Hvvxz93-2800-91 10-12 Cbuog93-9598-28 13-15 Wtfhb45-1370-49 16-18 Rydli49-1414-34 The pediatric ranges are derived from the following criteria: Amado SJ, Viviana JM, Katja J et al Pediatric reference ranges for Lzbf-2-Mxdowafrcewat and ceruloplasmin. Clin. Chem 1997; 43:S1999 Pediatric Reference Ranges, 2nd., [place] Amdao,et al. editors. [employer], [place], [place] 1997. Specimen Performing Laboratory Blood - Line, Venous [facility] [address] [address] Narrative Performing Lab *[facility], [address] [place] [phone] B Nataliia BURNS, FCJONAH Zinc (01/03/2017 11:51 AM) Component Value Ref Range Zinc 58 (L) 60 - 130 mcg/dL Comment: This test was developed and its analytical performance characteristics have been determined by [facility]. It has not been cleared or approved by the US Food and Drug Administration. This assay has been validated pursuant to the CLIA regulations and is used for clinical purposes. Specimen Performing Laboratory Blood - Line, Venous [facility] [address] [address] Narrative Performing Lab *[facility], [address] [place] [phone] Dillon William MD, FCAP Vitamin D, 25-Hydroxy (01/03/2017 11:51 AM) Component Value Ref Range Vitamin D 25-Hydroxy <13.0 (L) 13.0 - 47.8 ng/mL Specimen Performing Laboratory Blood - Line, [address] [address] RPR (01/03/2017 11:51 AM) Component Value Ref Range RPR Nonreactive Nonreactive Specimen Performing Laboratory Blood - [address] [address] Uric acid (01/03/2017 11:51 AM) Component Value Ref Range Uric Acid 16.0 (H) 2.6 - 7.2 mg/dL Specimen Performing Laboratory Blood - [address] [address] Narrative Specimen slightly icteric T3 (01/03/2017 11:51 AM) Component Value Ref Range T3, Total 34 (L) 48 - 159 ng/dL Specimen Performing Laboratory Blood - [address] [address] Narrative Effective 05/08/2014: Reference Range Change New: 48-159 Previous: 60-181 Transferrin (01/03/2017 11:51 AM) Component Value Ref Range Transferrin 128 (L) 174 - 382 mg/dL Specimen Performing Laboratory Blood - Line, [address] [address] Narrative Specimen slightly icteric TSH (01/03/2017 11:51 AM) Component Value Ref Range TSH 1.79 0.35 - 4.94 uIU/mL Specimen Performing Laboratory Blood - Line, [address] [address] T4 (01/03/2017 11:51 AM) Component Value Ref Range T4, Total 4.5 (L) 4.9 - 11.7 ug/dL Specimen Performing Laboratory Blood - [address] [address] Hemoglobin A1c (01/03/2017 11:51 AM) Component Value Ref Range Hemoglobin A1C 7.6 (H) 4.3 - 6.1 % Specimen Performing Laboratory Blood - Line, Venous [address] [address] Gamma Glutamyl Transferase (GGT) (01/03/2017 11:51 AM) Component Value Ref Range GGT 53 9 - 64 U/L Specimen Performing Laboratory Blood - Line, [place] [address] [address] Narrative Specimen slightly icteric Bilirubin, direct (01/03/2017 11:51 AM) Component Value Ref Range Bilirubin, Direct 2.4 (H) 0.1 - 0.5 mg/dL Specimen Performing Laboratory Blood - Line, Ven[place] [address] [address] Ethanol (01/03/2017 11:51 AM) Component Value Ref Range Ethanol Lvl <10 <=10 mg/dL Specimen Performing Laboratory Blood - Line, [place] [address] [address] Lipid panel (01/03/2017 11:51 AM) Component Value Ref Range Triglycerides 134 mg/dL Cholesterol 120 mg/dL HDL 7 mg/dL LDL Calculated 86 mg/dL Specimen Performing Laboratory Blood - Line, [place] [address] [address] Narrative Triglyceride Reference Range: Low Risk <150 Lsldugjnzk430-936 High Risk 200-499 Very High Risk>=500 Cholesterol Reference Range: Low Risk <200 Vtcljmmjdb847-153 High Risk>240 HDL Cholesterol Reference Range: Low Risk >=60 High Risk <40 LDL Cholesterol Reference Range: Optimal<100 Near Ofqpyya716-001 Qiczydwwcu861-094 Onei064-898 Very High >=190 Specimen slightly icteric Mitochondria M2 Antibody (IgG) (01/03/2017 11:50 AM) Component Value Ref Range Mitochondria M2 Ab <20.0 See Note: U Comment: Reference Range: NEGATIVE:< OR=20.0 EQUIVOCAL: 20.1-24.9 POSITIVE:> OR=25.0 Specimen Performing Laboratory Blood - Line, Venous [facility] [address] [address] Narrative Performing Lab [facility] [address] [address] Yared Costa MD Cytomegalovirus antibody, IgM (01/03/2017 11:50 AM) Component Value Ref Range CMV IgM Negative Specimen Performing Laboratory Blood - Line, [address] [address] Gpzph-3-dofvmglkexp (01/03/2017 11:50 AM) Component Value Ref Range Tohvx-5-Ftcfebqdyzp 254 (H) 83 - 199 mg/dL Specimen Performing Laboratory Blood - Line, Venous [facility] [address] [address] Narrative Performing Lab [facility] [address] [address] Yared Costa MD Alpha fetoprotein (AFP), tumor marker (01/03/2017 11:50 AM) Component Value Ref Range Alpha-Fetoprotein <2.0 <10.0 ng/mL Specimen Performing Laboratory Blood - Line, [address] [address] Narrative Effective 05/08/2014: Reference Range Change New: <10.0 Previous: 0.0-8.0 EBV-VCA antibody, IgM (01/03/2017 11:50 AM) Component Value Ref Range EBV VCA IgM Negative Specimen Performing Laboratory Blood - Line, [address] [address] EBV-VCA antibody, IgG (01/03/2017 11:50 AM) Component Value Ref Range EBV VCA IgG Positive Specimen Performing Laboratory Blood - Line, [address] [address] Hepatitis B core antibody, total (01/03/2017 11:50 AM) Component Value Ref Range Hep B Core Total Ab Nonreactive Nonreactive Specimen Performing Laboratory Blood - Line, [address] [address] Hepatitis B surface antibody (01/03/2017 11:50 AM) Component Value Ref Range Hep B S Ab <8.0 <8.0 mIU/mL Specimen Performing Laboratory Blood - Line, [address] [address] Cytomegalovirus antibody, IgG (01/03/2017 11:50 AM) Component Value Ref Range CMV IgG Positive Specimen Performing Laboratory Blood - Line, [address] [address] Anti-Nuclear Antibody (IVETTE) (01/03/2017 11:50 AM) Component Value Ref Range IVETTE Negative Negative Specimen Performing Laboratory Blood - Line, [address] [address] Ferritin (01/03/2017 11:50 AM) Component Value Ref Range Ferritin 1841 (H) 5 - 275 ng/mL Specimen Performing Laboratory Blood - Line, [address] [address] Narrative Effective 05/08/2014: Reference Range Change New: Male 5-275Previous: Male [address] Female 5-275Female 10-291 Carcinoembryonic Antigen (CEA) (01/03/2017 11:50 AM) Component Value Ref Range CEA, SERUM 2.0 0.0 - 5.0 ng/mL Specimen Performing Laboratory Blood - Line, [address] [address] HIV-1 Antigen with HIV-1/2 Antibody (01/03/2017 10:32 AM) Component Value Ref Range HIV-1 Antigen with HIV 1&2 Antibody Nonreactive Nonreactive Specimen Performing Laboratory Blood - Line, [address] [address] XR foot 2 views left (01/03/2017 9:21 AM) Specimen Performing Laboratory GE RIS Narrative FINAL REPORT Two views of the left foot without comparison. IMPRESSION: There is diffuse soft tissue swelling. There is no fracture or subluxation. The alignment appears normal. No definite bony destruction is seen although MRI or bone scan would be much more sensitive for evaluation for osteomyelitis. There are vascular calcifications. Signed: Kain Gonsalez MD Report Verified Date/Time:01/03/2017 10:36:50 Reading Location: [facility] [id number] Ortho Consult Reading Room Procedure Note Interface, External Ris In - 01/03/2017 10:38 AM CDT FINAL REPORT Two views of the left foot without comparison. IMPRESSION: There is diffuse soft tissue swelling. There is no fracture or subluxation. The alignment appears normal. No definite bony destruction is seen although MRI or bone scan would be much more sensitive for evaluation for osteomyelitis. There are vascular calcifications. Signed: Kain Gonsalez MD Report Verified Date/Time: 01/03/2017 10:36:50 Reading Location: [address] Ortho Consult Reading Room Troponin I (01/03/2017 8:57 AM)Only the most recent of2 resultswithin the time period is included. Component Value Ref Range Troponin I 0.34 (HH) 0.00 - 0.03 ng/mL Specimen Performing Laboratory Blood - Line, [place] [address] Narrative Effective 05/08/2014: Reference Range Change New: 0.00-0.03 Previous 0.00-0.15 Troponin I (TnI) levels must be interpreted in the context of the presenting symptoms and the clinical findings. Elevated TnI levels indicate myocardial damage, but are not specific for ischemic heart disease. Elevated TnI levels are seen in patients with other cardiac conditions (including myocarditis and congestive heart failure), and slight TnI elevations occur in patients with other conditions, including sepsis, renal failure, acidosis, acute neurological disease, and persistent tachyarrhythmia. Creatine Kinase (CK), Total and MB (01/03/2017 8:57 AM)Only the most recent of2 resultswithin the time period is included. Component Value Ref Range Total CK 301 (H) 29 - 200 U/L CK-MB 5.6 0.0 - 6.6 ng/mL MB Relative Index 1.9 % Specimen Performing Laboratory Blood - Line, Venous [place] [id number] Narrative Effective 05/08/2014: CK-MB Reference Range Change New: 0.0-6.6Previous: 0.0-4.9 CK-MB Reference Range: <6.7Normal 6.7-10.0Borderline >10.0 Abnormal Phosphorus (01/03/2017 4:40 AM) Component Value Ref Range Phosphorus 5.7 (H) 2.3 - 4.7 mg/dL Specimen Performing Laboratory Blood - Arm, [address] [address] Basic Metabolic Panel (01/03/2017 4:40 AM) Component Value Ref Range Sodium 144 136 - 145 meq/L Potassium 2.8 (L) 3.5 - 5.1 meq/L Chloride 95 (L) 98 - 107 meq/L CO2 35 (H) 22 - 29 meq/L BUN 49 (H) 7 - 21 mg/dL Creatinine 5.61 (H) 0.57 - 1.25 mg/dL Glucose 138 (H) 70 - 105 mg/dL Calcium 8.2 (L) 8.4 - 10.2 mg/dL EGFR Comment: INSUFFICIENT CLINICAL DATA TO CALCULATE mL/min/1.73 sq m ESTIMATED GFR. Specimen Performing Laboratory Blood - Arm, [address] [address] Narrative Specimen slightly icteric Acetaminophen level (01/03/2017 4:32 AM) Component Value Ref Range Acetaminophen Level <10.0 (L) 10.0 - 30.0 ug/mL Specimen Performing Laboratory Blood - Arm, [address] [address] US Renal with Doppler (01/03/2017 4:25 AM) Specimen Performing Laboratory GE RIS Narrative FINAL REPORT INDICATION: sanjuana, acute liver failure COMPARISON: None. TECHNIQUE:Real-time transabdominal becerra scale and color Doppler ultrasound of the abdomen. Dedicated sonographic examination of the kidneys. Color and spectral Doppler examination of the renal vasculature. FINDINGS: Liver: Size: 20.1cm. Echogenicity: Normal. Masses/lesions: None. Surface Nodularity: None. Intrahepatic bile ducts: Normal. Common bile duct: 0.4 cm. MPV: 1.1cm. Gallbladder: Stones: Multiple. Sludge: None. Wall thickness: 0.3 cm. The gallbladder lumen is nondistended. Pericholecystic fluid: None. Sonographic Garcia's sign: No sonographic Garcia's sign. Pancreas: Head and uncinate process: Unremarkable. Body and tail: Not well-seen. Spleen: Size: 12.5cm. Echogenicity: Unremarkable. Right kidney: Size: 11.1 x 4.9 x 4.9 cm. Parenchyma: Normal echogenicity. No cysts. No stones. Hydronephrosis: None. Left kidney: Size: 11.1 x 5.1 x 5.4 cm. Parenchyma: Normal echogenicity. No cysts. No stones. Hydronephrosis: None. Renal Vasculature: Doppler interrogation reveals preserved vascular flow in the main renal arteries and veins bilaterally. Urinary bladder: Unremarkable. Color Doppler and spectral renal ultrasound imaging: Resistive Indices, Right: Upper: 0.68 Middle: 0.77 Lower: 0.76 Resistive Indices, Left: Upper: 0.77 Middle: 0.78 Lower: 0.76 Ascites: None. Regional Vasculature: The visible abdominal aorta, IVC and hepatic veins are patent. Additional findings: None. IMPRESSION: Unremarkable sonographic examination of the kidneys. Normal renal vasculature. No sonographic evidence for renal artery stenosis. Hepatosplenomegaly. No focal hepatic lesions. Cholelithiasis without sonographic evidence of cholecystitis. Signed: JR Barkley Robert MD Report Verified Date/Time:01/03/2017 05:51:03 Reading Location: [address] Transitional Reading Room Procedure Note Interface, External Ris In - 01/03/2017 5:53 AM CDT FINAL REPORT INDICATION: sanjuana, acute liver failure COMPARISON: None. TECHNIQUE: Real-time transabdominal becerra scale and color Doppler ultrasound of the abdomen. Dedicated sonographic examination of the kidneys. Color and spectral Doppler examination of the renal vasculature. FINDINGS: Liver: Size: 20.1cm. Echogenicity: Normal. Masses/lesions: None. Surface Nodularity: None. Intrahepatic bile ducts: Normal. Common bile duct: 0.4 cm. MPV: 1.1cm. Gallbladder: Stones: Multiple. Sludge: None. Wall thickness: 0.3 cm. The gallbladder lumen is nondistended. Pericholecystic fluid: None. Sonographic Garcia's sign: No sonographic Garcia's sign. Pancreas: Head and uncinate process: Unremarkable. Body and tail: Not well-seen. Spleen: Size: 12.5cm. Echogenicity: Unremarkable. Right kidney: Size: 11.1 x 4.9 x 4.9 cm. Parenchyma: Normal echogenicity. No cysts. No stones. Hydronephrosis: None. Left kidney: Size: 11.1 x 5.1 x 5.4 cm. Parenchyma: Normal echogenicity. No cysts. No stones. Hydronephrosis: None. Renal Vasculature: Doppler interrogation reveals preserved vascular flow in the main renal arteries and veins bilaterally. Urinary bladder: Unremarkable. Color Doppler and spectral renal ultrasound imaging: Resistive Indices, Right: Upper: 0.68 Middle: 0.77 Lower: 0.76 Resistive Indices, Left: Upper: 0.77 Middle: 0.78 Lower: 0.76 Ascites: None. Regional Vasculature: The visible abdominal aorta, IVC and hepatic veins are patent. Additional findings: None. IMPRESSION: Unremarkable sonographic examination of the kidneys. Normal renal vasculature. No sonographic evidence for renal artery stenosis. Hepatosplenomegaly. No focal hepatic lesions. Cholelithiasis without sonographic evidence of cholecystitis. Signed: JR Barkley Robert MD Report Verified Date/Time: 01/03/2017 05:51:03 Reading Location: [address] Transitional Reading Room abdomen complete (01/03/2017 4:25 AM) Specimen Performing Laboratory Quack Narrative FINAL REPORT INDICATION: sanjuana, acute liver failure COMPARISON: None. TECHNIQUE:Real-time transabdominal becerra scale and color Doppler ultrasound of the abdomen. Dedicated sonographic examination of the kidneys. Color and spectral Doppler examination of the renal vasculature. FINDINGS: Liver: Size: 20.1cm. Echogenicity: Normal. Masses/lesions: None. Surface Nodularity: None. Intrahepatic bile ducts: Normal. Common bile duct: 0.4 cm. MPV: 1.1cm. Gallbladder: Stones: Multiple. Sludge: None. Wall thickness: 0.3 cm. The gallbladder lumen is nondistended. Pericholecystic fluid: None. Sonographic Garcia's sign: No sonographic Garcia's sign. Pancreas: Head and uncinate process: Unremarkable. Body and tail: Not well-seen. Spleen: Size: 12.5cm. Echogenicity: Unremarkable. Right kidney: Size: 11.1 x 4.9 x 4.9 cm. Parenchyma: Normal echogenicity. No cysts. No stones. Hydronephrosis: None. Left kidney: Size: 11.1 x 5.1 x 5.4 cm. Parenchyma: Normal echogenicity. No cysts. No stones. Hydronephrosis: None. Renal Vasculature: Doppler interrogation reveals preserved vascular flow in the main renal arteries and veins bilaterally. Urinary bladder: Unremarkable. Color Doppler and spectral renal ultrasound imaging: Resistive Indices, Right: Upper: 0.68 Middle: 0.77 Lower: 0.76 Resistive Indices, Left: Upper: 0.77 Middle: 0.78 Lower: 0.76 Ascites: None. Regional Vasculature: The visible abdominal aorta, IVC and hepatic veins are patent. Additional findings: None. IMPRESSION: Unremarkable sonographic examination of the kidneys. Normal renal vasculature. No sonographic evidence for renal artery stenosis. Hepatosplenomegaly. No focal hepatic lesions. Cholelithiasis without sonographic evidence of cholecystitis. Signed: JR Barkley Robert MD Report Verified Date/Time:01/03/2017 05:51:03 Reading Location: [facility] [id number] Transitional Reading Room Procedure Note Interface, External Ris In - 01/03/2017 5:53 AM CDT FINAL REPORT INDICATION: sanjuana, acute liver failure COMPARISON: None. TECHNIQUE: Real-time transabdominal becerra scale and color Doppler ultrasound of the abdomen. Dedicated sonographic examination of the kidneys. Color and spectral Doppler examination of the renal vasculature. FINDINGS: Liver: Size: 20.1cm. Echogenicity: Normal. Masses/lesions: None. Surface Nodularity: None. Intrahepatic bile ducts: Normal. Common bile duct: 0.4 cm. MPV: 1.1cm. Gallbladder: Stones: Multiple. Sludge: None. Wall thickness: 0.3 cm. The gallbladder lumen is nondistended. Pericholecystic fluid: None. Sonographic Garcia's sign: No sonographic Garcia's sign. Pancreas: Head and uncinate process: Unremarkable. Body and tail: Not well-seen. Spleen: Size: 12.5cm. Echogenicity: Unremarkable. Right kidney: Size: 11.1 x 4.9 x 4.9 cm. Parenchyma: Normal echogenicity. No cysts. No stones. Hydronephrosis: None. Left kidney: Size: 11.1 x 5.1 x 5.4 cm. Parenchyma: Normal echogenicity. No cysts. No stones. Hydronephrosis: None. Renal Vasculature: Doppler interrogation reveals preserved vascular flow in the main renal arteries and veins bilaterally. Urinary bladder: Unremarkable. Color Doppler and spectral renal ultrasound imaging: Resistive Indices, Right: Upper: 0.68 Middle: 0.77 Lower: 0.76 Resistive Indices, Left: Upper: 0.77 Middle: 0.78 Lower: 0.76 Ascites: None. Regional Vasculature: The visible abdominal aorta, IVC and hepatic veins are patent. Additional findings: None. IMPRESSION: Unremarkable sonographic examination of the kidneys. Normal renal vasculature. No sonographic evidence for renal artery stenosis. Hepatosplenomegaly. No focal hepatic lesions. Cholelithiasis without sonographic evidence of cholecystitis. Signed: JR Rubia, Shannon BURNS Report Verified Date/Time: 01/03/2017 05:51:03 Reading Location: [address] Reading Room Blood culture #2 (01/03/2017 2:12 AM)Only the most recent of2 resultswithin the time period is included. Component Value Ref Range Result No growth in 5 days Specimen Performing Laboratory Blood - Arm, [address] [address] Blood gas, venous (01/03/2017 2:11 AM) Component Value Ref Range pH, Roberth 7.46 (H) 7.32 - 7.42 pCO2, [place] 53 (H) 41 - 51 mmHg pO2, [place] 83 (H) 25 - 40 mmHg O2 Sat, [place] 96.5 (H) 40.0 - 70.0 % HCO3, Roberth 37 (H) 21 - 29 mmol/L Base Excess, Roberth 11.7 (H) -2.0 - 3.0 mmol/L Patient Temperature 37.0 C FIO2 21.0 % Specimen Performing Laboratory Blood - Arm, [address] [address] Urea Nitrogen, random urine (01/03/2017 2:00 AM) Component Value Ref Range Urea Nitrogen, Ur 303 mg/dL Specimen Performing Laboratory Urine [address] [address] Narrative Reference Range: No Normals Sodium, random urine (01/03/2017 2:00 AM) Component Value Ref Range Sodium Urine 60 meq/L Specimen Performing Laboratory Urine [address] [address] Narrative Reference Range: No Normals Creatinine, random urine (01/03/2017 2:00 AM) Component Value Ref Range Creatinine, Ur 118.7 mg/dL Specimen Performing Laboratory Urine [address] [address] Narrative Reference Range: No Normals Drug screen, urine, comprehensive (01/03/2017 2:00 AM) Specimen Performing Laboratory Urine [facility] [address] [address] Urinalysis w/Microscopic + Reflex to Culture (01/03/2017 1:58 AM) Component Value Ref Range Color, UA Yellow Clarity, UA Hazy Specific [place], UA 1.012 1.001 - 1.035 pH, UA 6.5 5.0 - 8.0 Protein, UA 300 mg/dL (A) Negative Glucose, UA Negative Negative Ketones, UA Negative Negative Bilirubin, UA Positive (A) Negative Blood, UA Moderate (A) Negative Nitrite, UA Negative Negative Leukocytes, UA Large (A) Negative Urobilinogen, UA 3.0 (H) 0.2 - 1.0 mg/dL RBC, UA 4 /HPF WBC, UA >182 /HPF Bacteria, UA Occasional Mucus Rare Squam Epithel, UA 19 /HPF Hyaline Casts, UA 13 /LPF Specimen Source Specimen Performing Laboratory Urine - Urine, [address] [address] Urine culture (01/03/2017 1:58 AM) Component Value Ref Range Result No growth Specimen Performing Laboratory Urine - Urine, [address] [address] Peripheral Blood Smear - Path Review (01/03/2017 1:57 AM) Component Value Ref Range RBC Morphology Polychromasia Anisocytosis Pathologist Review Cell counts confirmed Pathologist: Josefina Lara M.D. (electronic signature) Specimen Performing Laboratory Blood [address] [address] Lactic acid, venous, whole blood (01/03/2017 1:57 AM) Component Value Ref Range Lactate, Venous 0.8 0.5 - 2.2 mmol/L Specimen Performing Laboratory Blood [address] [address] Narrative Effective 10/23/2015: Units/Reference Range Change New: 0.5-2.2 mmol/LPrevious: 5-20 mg/dL Specimen slightly icteric Hepatitis panel, acute (01/03/2017 1:57 AM) Component Value Ref Range Hep A IgM Nonreactive Nonreactive Hep B C IgM Nonreactive Nonreactive Hepatitis C Ab Nonreactive Nonreactive hepatitis B Surface Ag Nonreactive Nonreactive Specimen Performing Laboratory Blood [address] [address] D-dimer (01/03/2017 1:57 AM) Component Value Ref Range D-Dimer, Quant 18.03 (H) <0.50 MG/L FEU Specimen Performing Laboratory Blood [address] [address] Narrative Intended Use: The D-Dimer Assay can be used to aid in the diagnosis of Deep Vein Thrombosis (DVT) and Pulmonary Embolism Disease (PED). In patients with low pre-test probability, various studies concerning STA Liatest D-dimer test have reported that with a cutoff value of 0.50 MG/L FEU, the Negative Predictive Value (NPV) regarding the exclusion of thrombosis is within 95-100% range. after 10/03/2016
--- OUTSIDE RECORDS SUMMARY | 2017-10-04 08:46 | XMS REPORT ---
:1980 [facility] Address [address] [place] [address] Care Team Providers Name Role Phone HAWA [...] Range Comments HERPES VIRUS IGM (BEAKER) (test zctl=8736) Negative SEE ATTACHMENT BLOOD [id number] 06:00:00 Test Item Value Reference Range Comments CULTURE (BEAKER) (test oubl=5892) No growth in 5 days BLOOD [id number] 06:00:00 Test Item Value Reference Range Comments CULTURE (BEAKER) (test opux=7789) No growth in 5 days POCT-GLUCOSE [id number] 12:11:00 Test Item Value Reference Range Comments POC-GLUCOSE METER (BEAKER) 154 mg/dL 70-110 TESTED AT [address] (test qigo=8303) [facility] [address] POCT-GLUCOSE [id number] 07:53:00 Test Item Value Reference Range Comments POC-GLUCOSE METER (BEAKER) 87 mg/dL 70-110 TESTED AT [address] (test wzqc=2699) [facility] [address] POCT-GLUCOSE [id number] 06:49:00 Test Item Value Reference Range Comments POC-GLUCOSE METER (BEAKER) 79 mg/dL 70-110 TESTED AT [address] (test xrdd=4633) [facility] [address] COMPREHENSIVE METABOLIC [id number] 06:15:00 Test Item Value Reference Range Comments TOTAL PROTEIN (BEAKER) 5.1 gm/dL 6.0-8.3 (test gkxp=394) ALBUMIN (BEAKER) (test 2.2 g/dL 3.5-5.0 pmqv=4408) ALKALINE PHOSPHATASE 78 U/L 40-150 (BEAKER) (test qgzc=984) BILIRUBIN TOTAL (BEAKER) 1.1 mg/dL 0.2-1.2 (test hqjj=655) SODIUM (BEAKER) (test 142 meq/L 136-145 atnr=122) POTASSIUM (BEAKER) (test 3.6 meq/L 3.5-5.1 rwcb=229) CHLORIDE (BEAKER) (test 106 meq/L 98-107 colm=190) CO2 (BEAKER) (test 27 meq/L 22-29 xxey=421) BLOOD UREA NITROGEN 29 mg/dL 7-21 (BEAKER) (test lqci=488) CREATININE (BEAKER) (test 2.70 mg/dL 0.57-1.25 sgbm=794) GLUCOSE RANDOM (BEAKER) 79 mg/dL 70-105 (test qhgp=305) CALCIUM (BEAKER) (test 8.2 mg/dL 8.4-10.2 cocc=204) AST (SGOT) (BEAKER) (test 256 U/L 5-34 hqea=667) ALT (SGPT) (BEAKER) (test 513 U/L 6-55 rbek=114) EGFR (BEAKER) (test 20 mL/min/1.73 sq m ESTIMATED GFR IS NOT tsei=2686) ACCURATE CREATININE CLEARANCE IN PREDICTING GLOMERULAR FILTRATION RATE. ESTIMATED GFR IS NOT APPLICABLE FOR DIALYSIS PATIENTS. [id number] 06:11:00 Test Item Value Reference Range Comments MAGNESIUM (BEAKER) (test kzks=382) 2.1 mg/dL 1.6-2.6 HEPATIC FUNCTION [id number] 06:11:00 Test Item Value Reference Range Comments TOTAL PROTEIN (BEAKER) (test wcun=496) 5.1 gm/dL 6.0-8.3 ALBUMIN (BEAKER) (test lazs=2733) 2.2 g/dL 3.5-5.0 BILIRUBIN TOTAL (BEAKER) (test xqkm=465) 1.1 mg/dL 0.2-1.2 BILIRUBIN DIRECT (BEAKER) (test kubf=145) 0.7 mg/dL 0.1-0.5 ALKALINE PHOSPHATASE (BEAKER) (test xiql=096) 78 U/L 40-150 AST (SGOT) (BEAKER) (test lwgr=007) 256 U/L 5-34 ALT (SGPT) (BEAKER) (test rmlv=918) 513 U/L 6-55 [id number] 05:30:00 Test Item Value Reference Range Comments FIBRINOGEN LEVEL (BEAKER) (test swvz=980) 368 mg/dl 225-434 [id number] 05:30:00 Test Item Value Reference Range Comments PARTIAL THROMBOPLASTIN TIME (BEAKER) (test 42.2 seconds 22.5-36.0 iphr=036) PROTHROMBIN [id number] 05:29:00 Test Item Value Reference Range Comments PROTIME (BEAKER) (test uvfp=797) 14.8 seconds 11.7-14.7 INR (BEAKER) (test fjap=952) 1.2 <=5.9 RECOMMENDED COUMADIN/WARFARIN INR THERAPY RANGESSTANDARD DOSE: 2.0 - 3.0 Includes: PROPHYLAXIS forvenous thrombosis, systemic embolization; TREATMENT for venous thrombosis and/or pulmonary embolus.HIGH RISK: Target INR is 2.5-3.5 for patients with mechanical heart valves.POCT-GLUCOSE [id number] 21:09:00 Test Item Value Reference Range Comments POC-GLUCOSE METER (BEAKER) 178 mg/dL 70-110 TESTED AT [address] (test srov=3680) [place] [address] POCT-GLUCOSE [id number] 17:18:00 Test Item Value Reference Range Comments POC-GLUCOSE METER (BEAKER) 178 mg/dL 70-110 TESTED AT [address] (test egrd=9391) [place] [address] POCT-GLUCOSE [id number] 13:48:00 Test Item Value Reference Range Comments POC-GLUCOSE METER (BEAKER) 150 mg/dL 70-110 TESTED AT [address] (test vbyn=2422) [place] [address] FACTOR 5 ACTIVITY (BLEEDING RISK)2017-01-06 10:04:00 Test Item Value Reference Range Comments FACTOR V ACTIVITY (BEAKER) (test bupo=245) 90.0 % 60.0-150.0 Effective 10/24/2013: Reference Range Change-Adult onlyNew: 60.0-150.0 Previous : 50.0-150.0CYTOMEGALOVIRUS ANTIBODY, [id number] 09:42:00 Test Item Value Reference Range Comments CYTOMEGALOVIRUS IGM ANTIBODY (BEAKER) (test Negative rqcd=199) HERPES VIRUS ANTIBODY, [id number] 08:59:00 Test Item Value Reference Range Comments HERPES VIRUS IGG (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 sctq=9427) CYTOMEGALOVIRUS ANTIBODY, [id number] 08:59:00 Test Item Value Reference Range Comments CYTOMEGALOVIRUS IGG ANTIBODY (BEAKER) (test Positive futk=084) EBV-VCA ANTIBODY, [id number] 08:59:00 Test Item Value Reference Range Comments JASE-WALL VCA IGG (BEAKER) (test dukl=519) Positive EBV-VCA ANTIBODY, [id number] 08:59:00 Test Item Value Reference Range Comments JASE-WALL VCA IGM (BEAKER) (test tnig=542) Negative POCT-GLUCOSE [id number] 07:59:00 Test Item Value Reference Range Comments POC-GLUCOSE METER (BEAKER) 81 mg/dL 70-110 TESTED AT [facility] [address] [facility] (test dixs=1096) [facility] [address] COMPREHENSIVE METABOLIC [id number] 06:23:00 Test Item Value Reference Range Comments TOTAL PROTEIN (BEAKER) 5.3 gm/dL 6.0-8.3 (test edpw=767) ALBUMIN (BEAKER) (test 2.4 g/dL 3.5-5.0 psar=2575) ALKALINE PHOSPHATASE 85 U/L 40-150 (BEAKER) (test uxgw=696) BILIRUBIN TOTAL (BEAKER) 1.5 mg/dL 0.2-1.2 (test hgyl=493) SODIUM (BEAKER) (test 142 meq/L 136-145 leya=471) POTASSIUM (BEAKER) (test 3.5 meq/L 3.5-5.1 gidm=150) CHLORIDE (BEAKER) (test 103 meq/L 98-107 cmfi=975) CO2 (BEAKER) (test 27 meq/L 22-29 kqni=564) BLOOD UREA NITROGEN 30 mg/dL 7-21 (BEAKER) (test mhga=912) CREATININE (BEAKER) (test 3.00 mg/dL 0.57-1.25 fqvm=871) GLUCOSE RANDOM (BEAKER) 99 mg/dL 70-105 (test urdr=669) CALCIUM (BEAKER) (test 8.7 mg/dL 8.4-10.2 hbws=828) AST (SGOT) (BEAKER) (test 364 U/L 5-34 vpoi=071) ALT (SGPT) (BEAKER) (test 779 U/L 6-55 bfvp=036) EGFR (BEAKER) (test 18 mL/min/1.73 sq m ESTIMATED GFR IS NOT krke=5845) ACCURATE CREATININE CLEARANCE IN PREDICTING GLOMERULAR FILTRATION RATE. ESTIMATED GFR IS NOT APPLICABLE FOR DIALYSIS PATIENTS. [id number] 06:17:00 Test Item Value Reference Range Comments MAGNESIUM (BEAKER) (test wrze=373) 1.8 mg/dL 1.6-2.6 HEPATIC FUNCTION [id number] 06:17:00 Test Item Value Reference Range Comments TOTAL PROTEIN (BEAKER) (test nvqb=330) 5.3 gm/dL 6.0-8.3 ALBUMIN (BEAKER) (test vjlz=6222) 2.4 g/dL 3.5-5.0 BILIRUBIN TOTAL (BEAKER) (test ofzc=261) 1.5 mg/dL 0.2-1.2 BILIRUBIN DIRECT (BEAKER) (test rxoi=500) 1.0 mg/dL 0.1-0.5 ALKALINE PHOSPHATASE (BEAKER) (test coya=792) 85 U/L 40-150 AST (SGOT) (BEAKER) (test myfl=660) 364 U/L 5-34 ALT (SGPT) (BEAKER) (test xgem=698) 779 U/L 6-55 [id number] 06:00:00 Test Item Value Reference Range Comments FIBRINOGEN LEVEL (BEAKER) (test cgfp=003) 390 mg/dl 225-434 [id number] 06:00:00 Test Item Value Reference Range Comments PARTIAL THROMBOPLASTIN TIME (BEAKER) (test 40.2 seconds 22.5-36.0 fply=887) PROTHROMBIN [id number] 05:59:00 Test Item Value Reference Range Comments PROTIME (BEAKER) (test vnkt=283) 14.6 seconds 11.7-14.7 INR (BEAKER) (test pjed=857) 1.2 <=5.9 RECOMMENDED COUMADIN/WARFARIN INR THERAPY RANGESSTANDARD DOSE: 2.0 - 3.0 Includes: PROPHYLAXIS forvenous thrombosis, systemic embolization; TREATMENT for venous thrombosis and/or pulmonary embolus.HIGH RISK: Target INR is 2.5-3.5 for patients with mechanical heart valves.POCT-GLUCOSE [id number] 21:46:00 Test Item Value Reference Range Comments POC-GLUCOSE METER (BEAKER) 153 mg/dL 70-110 TESTED AT [address] (test cxaw=6878) [facility] [address] POCT-GLUCOSE [id number] 18:47:00 Test Item Value Reference Range Comments POC-GLUCOSE METER (BEAKER) 181 mg/dL 70-110 TESTED AT [address] (test ojta=3113) [place] [id number] POCT-GLUCOSE [id number] 12:40:00 Test Item Value Reference Range Comments POC-GLUCOSE METER (BEAKER) 178 mg/dL 70-110 TESTED AT [address] (test pxnu=9045) [facility] [address] POCT-GLUCOSE [id number] 07:51:00 Test Item Value Reference Range Comments POC-GLUCOSE METER (BEAKER) 166 mg/dL 70-110 TESTED AT [address] (test ffcb=2896) [facility] [address] COMPREHENSIVE METABOLIC [id number] 03:26:00 Test Item Value Reference Range Comments TOTAL PROTEIN (BEAKER) 5.2 gm/dL 6.0-8.3 (test qsfu=938) ALBUMIN (BEAKER) (test 2.3 g/dL 3.5-5.0 yser=0763) ALKALINE PHOSPHATASE 72 U/L 40-150 (BEAKER) (test fuqv=566) BILIRUBIN TOTAL (BEAKER) 2.0 mg/dL 0.2-1.2 (test vznq=427) SODIUM (BEAKER) (test 140 meq/L 136-145 exhk=938) POTASSIUM (BEAKER) (test 3.3 meq/L 3.5-5.1 ehil=648) CHLORIDE (BEAKER) (test 99 meq/L 98-107 gecl=673) CO2 (BEAKER) (test 29 meq/L 22-29 egum=043) BLOOD UREA NITROGEN 35 mg/dL 7-21 (BEAKER) (test sxnm=284) CREATININE (BEAKER) (test 3.44 mg/dL 0.57-1.25 tvbd=999) GLUCOSE RANDOM (BEAKER) 151 mg/dL 70-105 (test phbc=239) CALCIUM (BEAKER) (test 8.6 mg/dL 8.4-10.2 jusc=001) AST (SGOT) (BEAKER) (test 506 U/L 5-34 fbbv=725) ALT (SGPT) (BEAKER) (test 1009 U/L 6-55 hwza=543) EGFR (BEAKER) (test 15 mL/min/1.73 sq m ESTIMATED GFR IS NOT eicl=9875) ACCURATE CREATININE CLEARANCE IN PREDICTING GLOMERULAR FILTRATION RATE. ESTIMATED GFR IS NOT APPLICABLE FOR DIALYSIS PATIENTS. [id number] 03:22:00 Test Item Value Reference Range Comments MAGNESIUM (BEAKER) (test cgzg=922) 1.4 mg/dL 1.6-2.6 HEPATIC FUNCTION [id number] 03:22:00 Test Item Value Reference Range Comments TOTAL PROTEIN (BEAKER) (test rnih=361) 5.2 gm/dL 6.0-8.3 ALBUMIN (BEAKER) (test dmyx=3042) 2.3 g/dL 3.5-5.0 BILIRUBIN TOTAL (BEAKER) (test ojai=690) 2.0 mg/dL 0.2-1.2 BILIRUBIN DIRECT (BEAKER) (test tujt=255) 1.3 mg/dL 0.1-0.5 ALKALINE PHOSPHATASE (BEAKER) (test icdu=604) 72 U/L 40-150 AST (SGOT) (BEAKER) (test zwyx=524) 506 U/L 5-34 ALT (SGPT) (BEAKER) (test dfmb=524) 1009 U/L 6-55 [id number] 03:12:00 Test Item Value Reference Range Comments AMMONIA (BEAKER) (test yfbp=502) 29 mol/L 18-72 [id number] 03:10:00 Test Item Value Reference Range Comments PARTIAL THROMBOPLASTIN TIME (BEAKER) (test 42.3 seconds 22.5-36.0 csua=420) PROTHROMBIN [id number] 03:09:00 Test Item Value Reference Range Comments PROTIME (BEAKER) (test drjz=931) 16.4 seconds 11.7-14.7 INR (BEAKER) (test ewjs=199) 1.3 <=5.9 RECOMMENDED COUMADIN/WARFARIN INR THERAPY RANGESSTANDARD DOSE: 2.0 - 3.0 Includes: PROPHYLAXIS forvenous thrombosis, systemic embolization; TREATMENT for venous thrombosis and/or pulmonary embolus.HIGH RISK: Target INR is 2.5-3.5 for patients with mechanical heart valves.[id number] 03:09:00 Test Item Value Reference Range Comments FIBRINOGEN LEVEL (BEAKER) (test adur=936) 413 mg/dl 225-434 CBC W/PLT COUNT & AUTO [id number] 03:09:00 Test Item Value Reference Range Comments WHITE BLOOD CELL COUNT (BEAKER) (test nfvd=912) 2.9 K/ L 4.0-10.0 RED BLOOD CELL COUNT (BEAKER) (test zmvf=473) 3.10 M/ L 4.00-5.00 HEMOGLOBIN (BEAKER) (test sugl=141) 9.5 GM/DL 12.0-15.0 HEMATOCRIT (BEAKER) (test ddap=458) 29.2 % 36.0-45.0 MEAN CORPUSCULAR VOLUME (BEAKER) (test duqy=358) 94.4 fL 82.0-99.0 MEAN CORPUSCULAR HEMOGLOBIN (BEAKER) (test 30.8 pg 27.0-33.0 ohbc=078) MEAN CORPUSCULAR HEMOGLOBIN CONC (BEAKER) (test 32.6 GM/DL 32.0-36.0 gewy=680) RED CELL DISTRIBUTION WIDTH (BEAKER) (test 15.2 % 10.3-14.2 mmfc=351) PLATELET COUNT (BEAKER) (test mkqh=491) 118 K/CU MM 150-430 MEAN PLATELET VOLUME (BEAKER) (test gwgy=866) 9.2 fL 6.5-10.5 NUCLEATED RED BLOOD CELLS (BEAKER) (test 0 /100 WBC 0-0 yuju=082) NEUTROPHILS RELATIVE PERCENT (BEAKER) (test 59 % qnqk=729) LYMPHOCYTES RELATIVE PERCENT (BEAKER) (test 27 % oycv=953) MONOCYTES RELATIVE PERCENT (BEAKER) (test 10 % lrvd=090) EOSINOPHILS RELATIVE PERCENT (BEAKER) (test 4 % sldk=981) BASOPHILS RELATIVE PERCENT (BEAKER) (test 1 % thct=596) NEUTROPHILS ABSOLUTE COUNT (BEAKER) (test 1.71 K/ L 1.80-8.00 fnro=791) LYMPHOCYTES ABSOLUTE COUNT (BEAKER) (test 0.78 K/ L 1.48-4.50 pdhb=183) MONOCYTES ABSOLUTE COUNT (BEAKER) (test 0.29 K/ L 0.00-1.30 kwrc=463) EOSINOPHILS ABSOLUTE COUNT (BEAKER) (test 0.11 K/ L 0.00-0.50 yhzz=976) BASOPHILS ABSOLUTE COUNT (BEAKER) (test 0.02 K/ L 0.00-0.20 tmvx=365) 0.00POCT-GLUCOSE [id number] 22:33:00 Test Item Value Reference Range Comments POC-GLUCOSE METER (BEAKER) 230 mg/dL 70-110 TESTED AT [address] (test ofpb=8878) [place] [id number] POCT-GLUCOSE [id number] 18:17:00 Test Item Value Reference Range Comments POC-GLUCOSE METER (BEAKER) 222 mg/dL 70-110 TESTED AT [address] (test whmz=3738) [place] [address] COMPREHENSIVE METABOLIC [id number] 16:59:00 Test Item Value Reference Range Comments TOTAL PROTEIN (BEAKER) 4.9 gm/dL 6.0-8.3 (test dzkp=748) ALBUMIN (BEAKER) (test 2.2 g/dL 3.5-5.0 dtxq=2921) ALKALINE PHOSPHATASE 71 U/L 40-150 (BEAKER) (test xugr=696) BILIRUBIN TOTAL (BEAKER) 2.2 mg/dL 0.2-1.2 (test bplv=322) SODIUM (BEAKER) (test 140 meq/L 136-145 vhos=483) POTASSIUM (BEAKER) (test 3.3 meq/L 3.5-5.1 dwgc=250) CHLORIDE (BEAKER) (test 99 meq/L 98-107 iobd=602) CO2 (BEAKER) (test 28 meq/L 22-29 yeze=564) BLOOD UREA NITROGEN 36 mg/dL 7-21 (BEAKER) (test hbeo=174) CREATININE (BEAKER) (test 3.57 mg/dL 0.57-1.25 qrnf=846) GLUCOSE RANDOM (BEAKER) 199 mg/dL 70-105 (test eieo=134) CALCIUM (BEAKER) (test 8.5 mg/dL 8.4-10.2 bzzr=912) AST (SGOT) (BEAKER) (test 640 U/L 5-34 ynpq=754) ALT (SGPT) (BEAKER) (test 1071 U/L 6-55 bhhf=119) EGFR (BEAKER) (test 15 mL/min/1.73 sq m ESTIMATED GFR IS NOT sfzz=9636) ACCURATE CREATININE CLEARANCE IN PREDICTING GLOMERULAR FILTRATION RATE. ESTIMATED GFR IS NOT APPLICABLE FOR DIALYSIS PATIENTS. PERIPHERAL BLOOD SMEAR - PATHOLOGIST [id number] 15:30:00 Test Item Value Reference Range Comments RBC MORPHOLOGY (BEAKER) (test Polychromasia ftls=2715) RBC MORPHOLOGY (BEAKER) (test Anisocytosis uvhb=21419) PERIPHERAL SMR REVIEW Cell counts confirmed (BEAKER) (test inby=5881) [id number] Josefina Lara M.D. (BEAKER) (test latx=7499) (electronic signature) PROTHROMBIN [id number] 15:12:00 Test Item Value Reference Range Comments PROTIME (BEAKER) (test bkhj=169) 16.6 seconds 11.7-14.7 INR (BEAKER) (test bext=328) 1.4 <=5.9 RECOMMENDED COUMADIN/WARFARIN INR THERAPY RANGESSTANDARD DOSE: 2.0 - 3.0 Includes: PROPHYLAXIS forvenous thrombosis, systemic embolization; TREATMENT for venous thrombosis and/or pulmonary embolus.HIGH RISK: Target INR is 2.5-3.5 for patients with mechanical heart valves.ANTI-NUCLEAR ANTIBODY (IVETTE)2017-01-04 14:32:00 Test Item Value Reference Range Comments ANTI-NUCLEAR ANTIBODY (IVETTE) (BEAKER) (test Negative Negative xzsk=694) POCT-GLUCOSE [id number] 12:47:00 Test Item Value Reference Range Comments POC-GLUCOSE METER (BEAKER) 212 mg/dL 70-110 TESTED AT [facility] [address] [place] [address] (test ehuw=6267) [facility] [address] [id number] 12:34:00 Test Item Value Reference Range Comments RPR SCREEN ([employer]) (test oazw=542) Nonreactive Nonreactive CLOSTRIDIUM DIFFICILE TOXIN [id number] 10:12:00 Test Item Value Reference Range Comments CLOSTRIDIUM DIFFICILE TOXIN, PCR ([employer]) (test Not Detected Not Detected ziot=1089) This qualitative real-time polymerase chain reaction assay [...] Range Comments FACTOR V ACTIVITY (BEAKER) (test bmju=723) 86.0 % 60.0-150.0 Effective 10/24/2013: Reference Range Change-Adult onlyNew: 60.0-150.0 Previous : 50.0-150.0FACTOR 5 ACTIVITY (BLEEDING RISK)2017-01-04 09:13:00 Test Item Value Reference Range Comments FACTOR V ACTIVITY (BEAKER) (test zgyd=598) 56.0 % 60.0-150.0 Effective 10/24/2013: Reference Range Change-Adult onlyNew: 60.0-150.0 Previous : 50.0-150.0POCT-GLUCOSE [id number] 06:40:00 Test Item Value Reference Range Comments POC-GLUCOSE METER (NoiseFreeAKER) 167 mg/dL 70-110 TESTED AT [facility] [address] [facility] (test wolt=7886) [facility] [address] COMPREHENSIVE METABOLIC [id number] 04:08:00 Test Item Value Reference Range Comments TOTAL PROTEIN (BEAKER) 4.7 gm/dL 6.0-8.3 (test kulv=136) ALBUMIN (BEAKER) (test 2.1 g/dL 3.5-5.0 wnqz=2004) ALKALINE PHOSPHATASE 71 U/L 40-150 (BEAKER) (test znge=897) BILIRUBIN TOTAL (BEAKER) 2.6 mg/dL 0.2-1.2 (test rtog=892) SODIUM (BEAKER) (test 140 meq/L 136-145 dhfq=052) POTASSIUM (BEAKER) (test 2.8 meq/L 3.5-5.1 jllg=510) CHLORIDE (BEAKER) (test 95 meq/L 98-107 ckga=471) CO2 (BEAKER) (test 31 meq/L 22-29 jmwp=977) BLOOD UREA NITROGEN 39 mg/dL 7-21 (BEAKER) (test sxop=570) CREATININE (BEAKER) (test 4.10 mg/dL 0.57-1.25 zyso=948) GLUCOSE RANDOM (BEAKER) 155 mg/dL 70-105 (test ffgp=497) CALCIUM (BEAKER) (test 8.2 mg/dL 8.4-10.2 rvow=779) AST (SGOT) (BEAKER) (test 846 U/L 5-34 kaxs=326) ALT (SGPT) (BEAKER) (test 1091 U/L 6-55 mjxk=230) EGFR (BEAKER) (test mL/min/1.73 sq m INSUFFICIENT CLINICAL DATA lrwb=1804) TO CALCULATE ESTIMATED GFR. Specimen slightly ictericHEPATIC FUNCTION [id number] 04:06:00 Test Item Value Reference Range Comments TOTAL PROTEIN (BEAKER) (test twbc=391) 4.7 gm/dL 6.0-8.3 ALBUMIN (BEAKER) (test sywx=7194) 2.1 g/dL 3.5-5.0 BILIRUBIN TOTAL (BEAKER) (test tpeh=867) 2.6 mg/dL 0.2-1.2 BILIRUBIN DIRECT (BEAKER) (test mhwd=073) 1.8 mg/dL 0.1-0.5 ALKALINE PHOSPHATASE (BEAKER) (test qyjr=881) 71 U/L 40-150 AST (SGOT) (BEAKER) (test wqec=477) 846 U/L 5-34 ALT (SGPT) (BEAKER) (test ofmw=352) 1091 U/L 6-55 Specimen slightly [id number] 04:01:00 Test Item Value Reference Range Comments FIBRINOGEN LEVEL (BEAKER) (test kuzg=548) 379 mg/dl 225-434 [id number] 04:01:00 Test Item Value Reference Range Comments PARTIAL THROMBOPLASTIN TIME (BEAKER) (test 40.7 seconds 22.5-36.0 cdgl=250) PROTHROMBIN [id number] 04:00:00 Test Item Value Reference Range Comments PROTIME (BEAKER) (test jxwq=573) 18.7 seconds 11.7-14.7 INR (BEAKER) (test etft=543) 1.6 <=5.9 RECOMMENDED COUMADIN/WARFARIN INR THERAPY RANGESSTANDARD DOSE: 2.0 - 3.0 Includes: PROPHYLAXIS forvenous thrombosis, systemic embolization; TREATMENT for venous thrombosis and/or pulmonary embolus.HIGH RISK: Target INR is 2.5-3.5 for patients with mechanical heart valves.CBC W/PLT COUNT & AUTO [id number] 03:56:00 Test Item Value Reference Range Comments WHITE BLOOD CELL COUNT (BEAKER) (test fnxj=090) 3.1 K/ L 4.0-10.0 RED BLOOD CELL COUNT (BEAKER) (test udrz=910) 2.85 M/ L 4.00-5.00 HEMOGLOBIN (BEAKER) (test qlpu=377) 8.8 GM/DL 12.0-15.0 HEMATOCRIT (BEAKER) (test wcuz=226) 26.6 % 36.0-45.0 MEAN CORPUSCULAR VOLUME (BEAKER) (test dbrt=661) 93.4 fL 82.0-99.0 MEAN CORPUSCULAR HEMOGLOBIN (BEAKER) (test 30.9 pg 27.0-33.0 vgkd=659) MEAN CORPUSCULAR HEMOGLOBIN CONC (BEAKER) (test 33.0 GM/DL 32.0-36.0 pijr=141) RED CELL DISTRIBUTION WIDTH (BEAKER) (test 14.9 % 10.3-14.2 loxt=237) PLATELET COUNT (BEAKER) (test ubfj=423) 98 K/CU MM 150-430 MEAN PLATELET VOLUME (BEAKER) (test xjoj=111) 9.1 fL 6.5-10.5 NUCLEATED RED BLOOD CELLS (BEAKER) (test 0 /100 WBC 0-0 jatg=793) NEUTROPHILS RELATIVE PERCENT (BEAKER) (test 55 % brin=205) LYMPHOCYTES RELATIVE PERCENT (BEAKER) (test 27 % gdup=938) MONOCYTES RELATIVE PERCENT (BEAKER) (test 12 % lzby=774) EOSINOPHILS RELATIVE PERCENT (BEAKER) (test 5 % hmub=366) BASOPHILS RELATIVE PERCENT (BEAKER) (test 1 % zdke=828) NEUTROPHILS ABSOLUTE COUNT (BEAKER) (test 1.71 K/ L 1.80-8.00 rlfo=914) LYMPHOCYTES ABSOLUTE COUNT (BEAKER) (test 0.83 K/ L 1.48-4.50 owhf=199) MONOCYTES ABSOLUTE COUNT (BEAKER) (test uxbs=254) 0.38 K/ L 0.00-1.30 EOSINOPHILS ABSOLUTE COUNT (BEAKER) (test 0.14 K/ L 0.00-0.50 msgr=094) BASOPHILS ABSOLUTE COUNT (BEAKER) (test fcpz=742) 0.02 K/ L 0.00-0.20 0.00POCT-GLUCOSE [id number] 00:19:00 Test Item Value Reference Range Comments POC-GLUCOSE METER (BEAKER) 159 mg/dL 70-110 TESTED AT [address] (test kplq=1207) [place] [id number] POCT-GLUCOSE [id number] 18:56:00 Test Item Value Reference Range Comments POC-GLUCOSE METER (BEAKER) 192 mg/dL 70-110 TESTED AT [address] (test dzkr=6181) [place] [id number] COMPREHENSIVE METABOLIC [id number] 16:55:00 Test Item Value Reference Range Comments TOTAL PROTEIN (BEAKER) 4.5 gm/dL 6.0-8.3 (test jori=321) ALBUMIN (BEAKER) (test 2.0 g/dL 3.5-5.0 sqad=9018) ALKALINE PHOSPHATASE 74 U/L 40-150 (BEAKER) (test itub=466) BILIRUBIN TOTAL (BEAKER) 2.9 mg/dL 0.2-1.2 (test vzjy=606) SODIUM (BEAKER) (test 142 meq/L 136-145 xdqm=901) POTASSIUM (BEAKER) (test 3.0 meq/L 3.5-5.1 nzmj=648) CHLORIDE (BEAKER) (test 95 meq/L 98-107 gppp=589) CO2 (BEAKER) (test 33 meq/L 22-29 pktw=407) BLOOD UREA NITROGEN 45 mg/dL 7-21 (BEAKER) (test ocex=846) CREATININE (BEAKER) (test 4.87 mg/dL 0.57-1.25 djbp=793) GLUCOSE RANDOM (BEAKER) 177 mg/dL 70-105 (test kqxi=765) CALCIUM (BEAKER) (test 8.4 mg/dL 8.4-10.2 onmx=509) AST (SGOT) (BEAKER) (test 1283 U/L 5-34 ljca=604) ALT (SGPT) (BEAKER) (test 1314 U/L 6-55 lofy=379) EGFR (BEAKER) (test mL/min/1.73 sq m INSUFFICIENT CLINICAL DATA ttzd=9940) TO CALCULATE ESTIMATED GFR. Specimen slightly ictericPROTHROMBIN [id number] 16:37:00 Test Item Value Reference Range Comments PROTIME (BEAKER) (test livh=964) 20.9 seconds 11.7-14.7 INR (BEAKER) (test xtta=744) 1.8 <=5.9 RECOMMENDED COUMADIN/WARFARIN INR THERAPY RANGESSTANDARD DOSE: 2.0 - 3.0 Includes: PROPHYLAXIS forvenous thrombosis, systemic embolization; TREATMENT for venous thrombosis and/or pulmonary embolus.HIGH RISK: Target INR is 2.5-3.5 for patients with mechanical heart valves.HEPATITIS B SURFACE [id number] 14:05:00 Test Item Value Reference Range Comments HEPATITIS B SURFACE ANTIBODY (BEAKER) (test < mIU/mL <8.0 slhr=961) HEPATITIS B CORE ANTIBODY, [id number] 13:43:00 Test Item Value Reference Range Comments HEPATITIS B CORE TOTAL ANTIBODY (BEAKER) (test Nonreactive Nonreactive dvbo=023) BLOOD GAS, [id number] 13:35:00 Test Item Value Reference Range Comments PH ARTERIAL (BEAKER) (test luoc=812) 7.44 7.35-7.45 PCO2 ARTERIAL (BEAKER) (test yuoy=192) 55 mmHg 35-45 PO2 ARTERIAL (BEAKER) (test usiw=254) 99 mmHg 80-90 O2 SATURATION ARTERIAL (BEAKER) (test eibe=161) 97.4 % 96.0-97.0 HCO3 ARTERIAL (BEAKER) (test ysrq=675) 36 mmol/L 21-29 BASE EXCESS ARTERIAL (BEAKER) (test kjhl=930) 10.3 mmol/L -2.0-3.0 PATIENT TEMPERATURE (BEAKER) (test wyiy=6429) 37.5 C FIO2 (BEAKER) (test past=9374) 28.0 % URINALYSIS W/ [id number] 13:16:00 Test Item Value Reference Range Comments COLOR (BEAKER) (test qrky=520) Yellow CLARITY (BEAKER) (test nsic=833) Clear SPECIFIC GRAVITY UA (BEAKER) (test dbtp=063) 1.013 1.001-1.035 PH UA (BEAKER) (test kypa=382) 6.0 5.0-8.0 PROTEIN UA (BEAKER) (test fysb=227) 300 mg/dL Negative GLUCOSE UA (BEAKER) (test rllm=937) 30 mg/dL Negative KETONES UA (BEAKER) (test hrla=368) Trace Negative BILIRUBIN UA (BEAKER) (test hpuo=300) Positive Negative BLOOD UA (BEAKER) (test wiyj=365) Moderate Negative NITRITE UA (BEAKER) (test wlcs=125) Negative Negative LEUKOCYTE ESTERASE UA (BEAKER) (test qwfo=957) Moderate Negative UROBILINOGEN UA (BEAKER) (test hasq=423) 2.0 mg/dL 0.2-1.0 RBC UA (BEAKER) (test ouwa=826) 2 /HPF WBC UA (BEAKER) (test lnel=733) 41 /HPF HYALINE CASTS (BEAKER) (test opec=083) 10 /LPF AMORPHOUS CRYSTALS (BEAKER) (test xwxy=3796) Rare SOURCE(BEAKER) (test fhom=1559) Urine, [place] VITAMIN D, [id number] 13:14:00 Test Item Value Reference Range Comments VITAMIN D 25-OH (BEAKER) (test vxpq=1914) < ng/mL 13.0-47.8 ALPHA FETOPROTEIN (AFP), TUMOR [id number] 13:06:00 Test Item Value Reference Range Comments ALPHA-FETOPROTEIN (BEAKER) (test wrac=6841) < ng/mL <10.0 Effective 05/08/2014: Reference Range ChangeNew: <10.0 Previous: 0.0- 8.0HEMOGLOBIN [id number] 13:05:00 Test Item Value Reference Range Comments HEMOGLOBIN A1C (BEAKER) (test wilw=572) 7.6 % 4.3-6.1 CARCINOEMBRYONIC ANTIGEN (CEA)2017-01-03 12:59:00 Test Item Value Reference Range Comments CARCINOEMBRYONIC ANTIGEN (BEAKER) (test yfvm=335) 2.0 ng/mL 0.0-5.0 [id number] 12:59:00 Test Item Value Reference Range Comments FERRITIN (BEAKER) (test qyzr=203) 1841 ng/mL 5-275 Effective 05/08/2014: Reference Range ChangeNew: Male 5-275 Previous: Male 22-322 Female 5-275 Female [id number] 12:58:00 Test Item Value Reference Range Comments T4 TOTAL (BEAKER) (test apdd=044) 4.5 ug/dL 4.9-11.7 [id number] 12:58:00 Test Item Value Reference Range Comments THYROID STIMULATING HORMONE (BEAKER) (test 1.79 uIU/mL 0.35-4.94 ngie=852) [id number] 12:58:00 Test Item Value Reference Range Comments T3 TOTAL (BEAKER) (test hdac=306) 34 ng/dL 48-159 Effective 05/08/2014: Reference Range ChangeNew: 48-159 Previous: 60- 181CALCIUM, [id number] 12:47:00 Test Item Value Reference Range Comments CALCIUM IONIZED (BEAKER) (test fmnc=359) 1.05 mmol/L 1.12-1.27 PH, BLOOD (BEAKER) (test wsnu=3859) 7.43 [id number] 12:42:00 Test Item Value Reference Range Comments TRANSFERRIN (BEAKER) (test mjko=053) 128 mg/dL 174-382 Specimen slightly ictericIRON, TIBC, % SAT. (WITHOUT FERRITIN)2017-01-03 12:42: 00 Test Item Value Reference Range Comments IRON (BEAKER) (test wmlz=937) 59 ug/dL 40-160 TOTAL IRON BINDING CAPACITY (BEAKER) (test 160 ug/dL 250-450 shld=215) IRON % SATURATION (2) (BEAKER) (test iuko=0752) 37 % 20-55 URIC [id number] 12:40:00 Test Item Value Reference Range Comments URIC ACID (BEAKER) (test ryip=856) 16.0 mg/dL 2.6-7.2 Specimen slightly ictericLIPID [id number] 12:40:00 Test Item Value Reference Range Comments TRIGLYCERIDES (BEAKER) (test cpto=428) 134 mg/dL CHOLESTEROL (BEAKER) (test vzrk=314) 120 mg/dL HDL CHOLESTEROL (BEAKER) (test cyaw=886) 7 mg/dL LDL CHOLESTEROL CALCULATED (BEAKER) (test 86 mg/dL mhse=660) Triglyceride Reference Range: Low Risk <150 Borderline 150- 199 High Risk 200-499 Very High Risk >=500Cholesterol Reference Range: Low Risk <200 Borderline 200-239 High Risk > 240HDL Cholesterol Reference Range: Low Risk >=60 High Risk <40LDL Cholesterol Reference Range: Optimal <100 Near Optimal 100-129 Borderline 130-159 High 160-189 Very High >=190 Specimen slightly ictericBILIRUBIN, [id number] 12:40:00 Test Item Value Reference Range Comments BILIRUBIN DIRECT (BEAKER) (test sqhz=413) 2.4 mg/dL 0.1-0.5 GAMMA GLUTAMYL TRANSFERASE (GGT)2017-01-03 12:40:00 Test Item Value Reference Range Comments GAMMA GLUTAMYL TRANSFERASE (BEAKER) (test xxiq=708) 53 U/L 9-64 Specimen slightly [id number] 12:39:00 Test Item Value Reference Range Comments ETHANOL (BEAKER) (test ezjx=444) < mg/dL <=10 SCREEN, [id number] 12:36:00 Test Item Value Reference Range Comments TEST URINE (BEAKER) (test utco=615) Negative POCT-GLUCOSE [id number] 12:34:00 Test Item Value Reference Range Comments POC-GLUCOSE METER (MADIE) 189 mg/dL 70-110 TESTED AT [facility] [address] (test hcba=6244) [facility] [address] HIV-1 ANTIGEN WITH HIV-1/2 [id number] 11:58:00 Test Item Value Reference Range Comments HIV-1 ANTIGEN WITH HIV 1\T\2 ANTIBODY (2) Nonreactive Nonreactive (BEAKER) (test kzbc=2773) TROPONIN [id number] 09:44:00 Test Item Value Reference Range Comments TROPONIN I (BEAKER) (test mzfg=326) 0.34 ng/mL 0.00-0.03 Effective 05/08/2014: Reference Range [...] and persistent tachyarrhythmia.CREATINE KINASE (CK), TOTAL AND [id number] 09:43:00 Test Item Value Reference Range Comments CREATINE KINASE TOTAL (BEAKER) (test ssiw=930) 301 U/L 29-200 CREATINE KINASE-MB (BEAKER) (test vwfj=318) 5.6 ng/mL 0.0-6.6 CREATINE KINASE-MB INDEX (BEAKER) (test kkce=430) 1.9 % Effective 05/08/2014: CK-MB Reference Range ChangeNew: 0.0-6.6 Previous: 0.0- 4.9CK-MB Reference Range:<6.7 Normal6.7-10.0 Borderline>10.0 AbnormalACETAMINOPHEN [id number] 08:31:00 Test Item Value Reference Range Comments ACETAMINOPHEN LEVEL (BEAKER) (test qsag=896) < ug/mL 10.0-30.0 TROPONIN [id number] 05:53:00 Test Item Value Reference Range Comments TROPONIN I (BEAKER) (test clsr=969) 0.33 ng/mL 0.00-0.03 Effective 05/08/2014: Reference Range [...] acute neurological disease, and persistent tachyarrhythmia.BASIC METABOLIC [id number] 05:53:00 Test Item Value Reference Range Comments SODIUM (BEAKER) (test 144 meq/L 136-145 zvwn=163) POTASSIUM (BEAKER) (test 2.8 meq/L 3.5-5.1 ckgn=754) CHLORIDE (BEAKER) (test 95 meq/L 98-107 oywj=060) CO2 (BEAKER) (test 35 meq/L 22-29 vcpr=756) BLOOD UREA NITROGEN 49 mg/dL 7-21 (BEAKER) (test kcow=579) CREATININE (BEAKER) (test 5.61 mg/dL 0.57-1.25 iywp=733) GLUCOSE RANDOM (BEAKER) 138 mg/dL 70-105 (test oife=340) CALCIUM (BEAKER) (test 8.2 mg/dL 8.4-10.2 saox=183) EGFR (BEAKER) (test mL/min/1.73 sq m INSUFFICIENT CLINICAL DATA bnlq=2002) TO CALCULATE ESTIMATED GFR. Specimen slightly [id number] 05:52:00 Test Item Value Reference Range Comments PHOSPHORUS (BEAKER) (test bbrt=315) 5.7 mg/dL 2.3-4.7 HEPATIC FUNCTION [id number] 05:52:00 Test Item Value Reference Range Comments TOTAL PROTEIN (BEAKER) (test oajg=520) 5.2 gm/dL 6.0-8.3 ALBUMIN (BEAKER) (test qble=6689) 2.3 g/dL 3.5-5.0 BILIRUBIN TOTAL (BEAKER) (test zvga=996) 3.5 mg/dL 0.2-1.2 BILIRUBIN DIRECT (BEAKER) (test oofp=302) 2.6 mg/dL 0.1-0.5 ALKALINE PHOSPHATASE (BEAKER) (test aymc=019) 81 U/L 40-150 AST (SGOT) (BEAKER) (test hrpc=592) 2190 U/L 5-34 ALT (SGPT) (BEAKER) (test fcdq=009) 1782 U/L 6-55 Specimen slightly ictericCREATINE KINASE (CK), TOTAL AND [id number] 05:52:00 Test Item Value Reference Range Comments CREATINE KINASE TOTAL (BEAKER) (test hmrj=611) 341 U/L 29-200 CREATINE KINASE-MB (BEAKER) (test vvzn=140) 5.4 ng/mL 0.0-6.6 CREATINE KINASE-MB INDEX (BEAKER) (test yirm=057) 1.6 % Effective 05/08/2014: CK-MB Reference Range ChangeNew: 0.0-6.6 Previous: 0.0- 4.9CK-MB Reference Range:<6.7 Normal6.7-10.0 Borderline>10.0 AbnormalCBC W/PLT COUNT & AUTO [id number] 05:48:00 Test Item Value Reference Range Comments WHITE BLOOD CELL COUNT (BEAKER) (test cezr=746) 4.1 K/ L 4.0-10.0 RED BLOOD CELL COUNT (BEAKER) (test czlp=606) 3.29 M/ L 4.00-5.00 HEMOGLOBIN (BEAKER) (test dqdg=428) 10.0 GM/DL 12.0-15.0 HEMATOCRIT (BEAKER) (test yxtx=909) 30.7 % 36.0-45.0 MEAN CORPUSCULAR VOLUME (BEAKER) (test ikbn=583) 93.5 fL 82.0-99.0 MEAN CORPUSCULAR HEMOGLOBIN (BEAKER) (test 30.5 pg 27.0-33.0 bpfc=286) MEAN CORPUSCULAR HEMOGLOBIN CONC (BEAKER) (test 32.6 GM/DL 32.0-36.0 brsc=776) RED CELL DISTRIBUTION WIDTH (BEAKER) (test 15.0 % 10.3-14.2 qiim=808) PLATELET COUNT (BEAKER) (test hcsp=681) 106 K/CU MM 150-430 MEAN PLATELET VOLUME (BEAKER) (test xqvq=268) 9.6 fL 6.5-10.5 NUCLEATED RED BLOOD CELLS (BEAKER) (test 0 /100 WBC 0-0 cgth=359) NEUTROPHILS RELATIVE PERCENT (BEAKER) (test 66 % fnmc=752) LYMPHOCYTES RELATIVE PERCENT (BEAKER) (test 24 % hxlp=224) MONOCYTES RELATIVE PERCENT (BEAKER) (test 6 % zjfz=266) EOSINOPHILS RELATIVE PERCENT (BEAKER) (test 3 % osmh=846) BASOPHILS RELATIVE PERCENT (BEAKER) (test 0 % xdqs=168) NEUTROPHILS ABSOLUTE COUNT (BEAKER) (test 2.74 K/ L 1.80-8.00 ynkl=130) LYMPHOCYTES ABSOLUTE COUNT (BEAKER) (test 1.00 K/ L 1.48-4.50 phwq=009) MONOCYTES ABSOLUTE COUNT (BEAKER) (test 0.26 K/ L 0.00-1.30 vxcv=696) EOSINOPHILS ABSOLUTE COUNT (BEAKER) (test 0.13 K/ L 0.00-0.50 imku=950) BASOPHILS ABSOLUTE COUNT (BEAKER) (test 0.01 K/ L 0.00-0.20 nypt=259) [id number] 05:09:00 Test Item Value Reference Range Comments FIBRINOGEN LEVEL (BEAKER) (test qzch=194) 427 mg/dl 225-434 [id number] 05:09:00 Test Item Value Reference Range Comments PARTIAL THROMBOPLASTIN TIME (BEAKER) (test 36.2 seconds 22.5-36.0 brxd=271) PROTHROMBIN TIME/[id number] 05:08:00 Test Item Value Reference Range Comments PROTIME (BEAKER) (test cuzq=239) 22.8 seconds 11.7-14.7 INR (BEAKER) (test ihnr=363) 2.0 <=5.9 RECOMMENDED COUMADIN/WARFARIN INR THERAPY RANGESSTANDARD DOSE: 2.0 - 3.0 Includes: PROPHYLAXIS forvenous thrombosis, systemic embolization; TREATMENT for venous thrombosis and/or pulmonary embolus.HIGH RISK: Target INR is 2.5-3.5 for patients with mechanical heart valves.HEPATITIS PANEL, [id number] 03:40 :00 Test Item Value Reference Range Comments HEPATITIS A IGM ANTIBODY (BEAKER) (test Nonreactive Nonreactive hjrf=284) HEPATITIS B CORE IGM ANTIBODY (BEAKER) (test Nonreactive Nonreactive qjnl=459) HEPATITIS C ANTIBODY (BEAKER) (test tfwl=619) Nonreactive Nonreactive HEPATITIS B SURFACE ANTIGEN (2) (BEAKER) (test Nonreactive Nonreactive zbmb=8421) CREATININE, RANDOM [id number] 03:18:00 Test Item Value Reference Range Comments CREATININE URINE (BEAKER) (test aqvy=007) 118.7 mg/dL Reference Range: No NormalsSODIUM, RANDOM [id number] 03:18:00 Test Item Value Reference Range Comments SODIUM URINE (BEAKER) (test yapo=163) 60 meq/L Reference Range: No NormalsUREA NITROGEN, RANDOM [id number] 03:18:00 Test Item Value Reference Range Comments UREA NITROGEN URINE (BEAKER) (test pphq=178) 303 mg/dL Reference Range: No [id number] 03:07:00 Test Item Value Reference Range Comments AMMONIA (BEAKER) (test tbaw=525) 48 mol/L 18-72 [id number] 02:57:00 Test Item Value Reference Range Comments D-DIMER QUANTITATIVE (BEAKER) (test wyqf=129) 18.03 MG/L FEU <0.50 Intended Use: The [...] is within 95-100% range.URINALYSIS W/ REFLEX URINE [id number] 02:53:00 Test Item Value Reference Range Comments COLOR (BEAKER) (test wkel=832) Yellow CLARITY (BEAKER) (test mdvl=286) Hazy SPECIFIC GRAVITY UA (BEAKER) (test jazp=864) 1.012 1.001-1.035 PH UA (BEAKER) (test ipfb=488) 6.5 5.0-8.0 PROTEIN UA (BEAKER) (test zrbg=901) 300 mg/dL Negative GLUCOSE UA (BEAKER) (test qrpe=287) Negative Negative KETONES UA (BEAKER) (test eewj=652) Negative Negative BILIRUBIN UA (BEAKER) (test xwzc=711) Positive Negative BLOOD UA (BEAKER) (test jjau=252) Moderate Negative NITRITE UA (BEAKER) (test eorr=589) Negative Negative LEUKOCYTE ESTERASE UA (BEAKER) (test peuu=641) Large Negative UROBILINOGEN UA (BEAKER) (test uujp=022) 3.0 mg/dL 0.2-1.0 RBC UA (BEAKER) (test yccs=508) 4 /HPF WBC UA (BEAKER) (test qksh=133) > /HPF BACTERIA (BEAKER) (test sdwz=148) Occasional MUCUS (BEAKER) (test conw=9067) Rare SQUAMOUS EPITHELIAL (BEAKER) (test tpst=416) 19 /HPF HYALINE CASTS (BEAKER) (test zzei=349) 13 /LPF SOURCE(BEAKER) (test ctgm=8776) [id number] 02:49:00 Test Item Value Reference Range Comments PARTIAL THROMBOPLASTIN TIME (BEAKER) (test 39.4 seconds 22.5-36.0 djbo=193) PROTHROMBIN TIME/[id number] 02:48:00 Test Item Value Reference Range Comments PROTIME (BEAKER) (test tcpb=545) 22.0 seconds 11.7-14.7 INR (BEAKER) (test ntsa=252) 1.9 <=5.9 RECOMMENDED COUMADIN/WARFARIN INR THERAPY RANGESSTANDARD DOSE: 2.0 - 3.0 Includes: PROPHYLAXIS forvenous thrombosis, systemic embolization; TREATMENT for venous thrombosis and/or pulmonary embolus.HIGH RISK: Target INR is 2.5-3.5 for patients with mechanical heart valves.[id number] 02:48:00 Test Item Value Reference Range Comments FIBRINOGEN LEVEL (BEAKER) (test oild=904) 421 mg/dl 225-434 BLOOD GAS, [id number] 02:43:00 Test Item Value Reference Range Comments PH VENOUS (BEAKER) (test jutq=996) 7.46 7.32-7.42 PCO2 VENOUS (BEAKER) (test ppzl=002) 53 mmHg 41-51 PO2 VENOUS (BEAKER) (test avsg=270) 83 mmHg 25-40 O2 SATURATION VENOUS (BEAKER) (test uzfw=027) 96.5 % 40.0-70.0 HCO3 VENOUS (BEAKER) (test tajm=707) 37 mmol/L 21-29 BASE EXCESS VENOUS (BEAKER) (test jqam=421) 11.7 mmol/L -2.0-3.0 PATIENT TEMPERATURE (BEAKER) (test qgfl=2557) 37.0 C FIO2 (BEAKER) (test hvfv=6180) 21.0 % CBC W/PLT COUNT & AUTO [id number] 02:43:00 Test Item Value Reference Range Comments WHITE BLOOD CELL COUNT (BEAKER) (test gbsq=971) 4.4 K/ L 4.0-10.0 RED BLOOD CELL COUNT (BEAKER) (test ipju=562) 3.13 M/ L 4.00-5.00 HEMOGLOBIN (BEAKER) (test labe=807) 9.8 GM/DL 12.0-15.0 HEMATOCRIT (BEAKER) (test dori=948) 29.0 % 36.0-45.0 MEAN CORPUSCULAR VOLUME (BEAKER) (test wgmh=045) 92.9 fL 82.0-99.0 MEAN CORPUSCULAR HEMOGLOBIN (BEAKER) (test 31.3 pg 27.0-33.0 gorh=918) MEAN CORPUSCULAR HEMOGLOBIN CONC (BEAKER) (test 33.6 GM/DL 32.0-36.0 kujv=293) RED CELL DISTRIBUTION WIDTH (BEAKER) (test 15.3 % 10.3-14.2 khdx=146) PLATELET COUNT (BEAKER) (test ogcn=278) 113 K/CU MM 150-430 MEAN PLATELET VOLUME (BEAKER) (test lwys=080) 9.8 fL 6.5-10.5 NUCLEATED RED BLOOD CELLS (BEAKER) (test 0 /100 WBC 0-0 vmww=818) NEUTROPHILS RELATIVE PERCENT (BEAKER) (test 61 % hsng=730) LYMPHOCYTES RELATIVE PERCENT (BEAKER) (test 23 % lqua=276) MONOCYTES RELATIVE PERCENT (BEAKER) (test 11 % wknk=849) EOSINOPHILS RELATIVE PERCENT (BEAKER) (test 4 % nqem=173) BASOPHILS RELATIVE PERCENT (BEAKER) (test 1 % jebw=505) NEUTROPHILS ABSOLUTE COUNT (BEAKER) (test 2.65 K/ L 1.80-8.00 plqh=279) LYMPHOCYTES ABSOLUTE COUNT (BEAKER) (test 1.01 K/ L 1.48-4.50 vwzm=680) MONOCYTES ABSOLUTE COUNT (BEAKER) (test 0.48 K/ L 0.00-1.30 rsta=398) EOSINOPHILS ABSOLUTE COUNT (BEAKER) (test 0.19 K/ L 0.00-0.50 lpnl=283) BASOPHILS ABSOLUTE COUNT (BEAKER) (test 0.05 K/ L 0.00-0.20 tijp=253) 0.00LACTIC ACID, VENOUS, WHOLE [id number] 02:35:00 Test Item Value Reference Range Comments LACTATE BLOOD VENOUS (2) (BEAKER) (test 0.8 mmol/L 0.5-2.2 iwua=7082) Effective 10/23/2015: Units/Reference Range ChangeNew: 0.5-2.2 mmol/L Previous: 5 -20 mg/dLSpecimen slightly icteric
--- NOTE | 2017-10-04 10:06 | RAD REPORT ---
EXAM DESCRIPTION: RAD - Chest Single View - 10/04/2017 9:59 am CLINICAL HISTORY: Chest pain. COMPARISON: 09/09/2017 FINDINGS: Portable technique limits examination quality. The lungs are grossly clear. The heart is mildly prominent in size. No displaced fractures. IMPRESSION: No acute intrathoracic process suspected.
--- NOTE | 2017-10-04 10:07 | RAD REPORT ---
EXAM DESCRIPTION: RAD - Humerus Left - 10/04/2017 9:59 am CLINICAL HISTORY: Fall, left arm pain COMPARISON: None. FINDINGS: No acute fracture or dislocation is seen. No aggressive bone lesion.
[2017-10-04 10:36] LABS: Urine Appearance CLEAR; Urine Color YELLOW
[2017-10-04 10:37] LABS: Urine Glucose TRACE (NEG)
[2017-10-04 10:38] LABS: Urine Bilirubin NEGATIVE (NEG); Urine Blood 1+ (NEG); Urine Microscopic Reflex ORDER UMIC; Urine Protein 3+ (NEG); Urine Urobilinogen 0.2 mg/dL (0.2-1.0)
[2017-10-04 10:45] LABS: Potassium 3.4 mEq/L (3.6-5.0)
[2017-10-04 10:47] LABS: Absolute Monocytes 0.4 K/uL (0.1-1.3); Absolute Neutrophil 4.5 K/uL (1.8-8.0); Eosinophils % 3.9 % (0-4.4); Hematocrit 22.4 % (36.0-45.0); Lymphocytes % 16.4 % (15.3-44.8); MCH 29.8 pg (27.0-35.0); MCV 88.9 fL (80-100); MPV 10.1 fL (7.6-11.3); Monocytes % 6.9 % (3.3-12.3); RBC Red Blood Cell Count 2.52 M/uL (3.86-4.86)
[2017-10-04 10:50] LABS: Urine Bacteria <20 /HPF (<20); Urine Culture Reflex Order REFLEXED; Urine RBC <5 /HPF (NONE SEEN)
[2017-10-04 10:51] LABS: Albumin 2.9 g/dL (3.2-5.5); Bilirubin Total 0.7 mg/dL (0.3-1.2); Protein, Total 5.8 g/dL (6.0-8.3)
[2017-10-04] MEDS ORDERED: ACETAMINOPHEN 325 MG TABLET ONE (10:52)
--- NOTE | 2017-10-04 10:55 | ER ---
Nurse's Notes [facility] Name: Cathi Zaldivar Age: 36 yrs Sex: Female : 1980 Arrival Date: 10/04/2017 Time: 08:43 Bed 20 Private MD: Partha Abraham Diagnosis: fall, contusion;UTI Presentation: 10/04 08:54 Presenting complaint: Patient states: "I rolled from my bed this morning onto my left lk1 side. My left shoulder and left hip hurt.". Transition of care: patient was not received from another setting of care. Onset of symptoms was October 04, 2017 at 07:30. Care prior to arrival: None. 08:54 Method Of Arrival: Ambulatory lk1 08:54 Acuity: JESSICA 3 lk1 Triage Assessment: 08:56 General: Appears uncomfortable, Behavior is calm, cooperative, appropriate for age. lk1 Pain: Complains of pain in anterior aspect of left shoulder Pain currently is 7 out of 10 on a pain scale. Neuro: Level of Consciousness is awake, alert, obeys commands, Oriented to person, place, time, situation. Cardiovascular: Capillary refill is brisk Patient's skin is warm and dry. Respiratory: Airway is patent Respiratory effort is even, unlabored, Respiratory pattern is regular, symmetrical. 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 - Social history:: Smoking status: Patient uses tobacco products, smokes one-half pack cigarettes per day. Screenin:49 Abuse screen: Denies threats or abuse. Denies injuries from another. Nutritional aj screening: No deficits noted. Tuberculosis screening: No symptoms or risk factors identified. Fall Risk None identified. Assessment: 10:48 General: Appears in no apparent distress. comfortable, Behavior is calm, cooperative, aj appropriate for age. Pain: Complains of pain in left arm. Neuro: Level of Consciousness is awake, alert, obeys commands, Oriented to person, place, time, situation. Respiratory: Airway is patent Respiratory effort is even, unlabored, Respiratory pattern is regular, symmetrical. Derm: Skin is intact, is healthy with good turgor, Skin is pink, warm \\T\\ dry. normal. Musculoskeletal: Circulation, motion, and sensation intact. Range of motion: intact in all extremities, Swelling absent Reports pain in left arm. 10:49 Reassessment: Patient observed resting in bed with eyes closed. In NAD. aj Vital Signs: 08:57 BP 203 / 84; Pulse 78; Resp 16; Temp 97.0(TE); Pulse Ox 98% on R/A; Weight 77.11 kg lk1 (R); Height 5 ft. 3 in. (160.02 cm) (R); Pain 7/10; 10:55 BP 191 / 89; Pulse 78; Resp 18; Pulse Ox 95% on R/A; aj 08:57 Body Mass Index 30.11 (77.11 kg, 160.02 cm) lk1 ED Course: 08:43 Patient arrived in ED. as 08:44 Partha Abraham MD is Private Physician. as 08:55 Triage completed. lk1 08:58 Arm band placed on right wrist. lk1 09:02 Radha Syed, RN is Primary Nurse. aj 09:18 Jonathan Desouza MD is Attending Physician. ps1 09:59 CXR XRAY In Process Unspecified. EDMS 09:59 Humerus Left XRAY In Process Unspecified. EDMS 10:53 Patrha Abraham MD is Referral Physician. ps1 10:54 Urine Culture Sent. aj 10:59 No provider procedures requiring assistance completed. Patient did not have IV access aj during this emergency room visit. 11:00 Patient has correct armband on for positive identification. Bed in low position. aj Administered Medications: 10:55 Drug: Tylenol 650 mg Route: PO; aj 11:00 Follow up: Response: Medication administered at discharge. aj Outcome: 10:54 Discharge ordered by . ps1 10:59 Discharged to home ambulatory. aj 10:59 Condition: good 10:59 Discharge instructions given to patient, Instructed on discharge instructions, follow up and referral plans. medication usage, Demonstrated understanding of instructions, follow-up care, medications, Prescriptions given X 1. 11:01 Patient left the ED. silvestre Addendum: 10/07/2017 15:58 Addendum: Culture Results: Positive urine culture. No further action required. Bacteria s s sensitive to prescribed antibiotic. Signatures: Dispatcher [employer] Radha Albert, Kimmy Lake RN, Shelby, RN RN ss Zabrina Guevara RN RN lk1 Jonathan Desouza MD MD ps1
--- NOTE | 2017-10-04 10:55 | EDPHYS ---
Physician Documentation [facility] Name: Cathi Zaldivar Age: 36 yrs Sex: Female : 1980 Arrival Date: 10/04/2017 Time: 08:43 Bed 20 Private MD: Partha Abraham ED Physician Jonathan Desouza HPI: 10/04 09:26 This 36 yrs old Female presents to ER via Ambulatory with complaints of Fall ps1 Injury, Ear Pain. 09:26 Details of fall: The patient fell from an upright position, while standing. Onset: The ps1 symptoms/episode began/occurred this morning. Associated injuries: The patient sustained left arm and left hip. Severity of symptoms: At their worst the symptoms were moderate. The patient has experienced similar episodes in the past. The patient has been recently seen by a physician: with similar presenting complaints, with different complaint(s), seen all the time. 65 visits. . PROTOCOL OFFICER: 08:57 LMP N/A - Irregular menses lk1 Historical: - Allergies: 08:56 ambien; lk1 08:56 Codeine; lk1 08:56 Lisinopril; lk1 08:56 Nitrofurantoin Macrocrystal; lk1 08:56 PENICILLINS; lk1 08:56 Prolixin; lk1 - PMHx: 08:56 chronic kidney disease; PERIPHERAL NEUROPATHY; liver failure; Gastroparesis; lk1 ENCEPHALOPATHY; Diabetes - NIDDM; cyclic vomiting syndrome; - Immunization history:: Adult Immunizations up to date. - Social history:: Smoking status: Patient uses tobacco products, smokes one-half pack cigarettes per day. ROS: 09:26 Constitutional: Negative for fever, chills, and weight loss, Eyes: Negative for injury, ps1 pain, redness, and discharge, Cardiovascular: Negative for chest pain, palpitations, and edema, Respiratory: Negative for shortness of breath, cough, wheezing, and pleuritic chest pain, Abdomen/GI: Negative for abdominal pain, nausea, vomiting, diarrhea, and constipation, Back: Negative for injury and pain. 09:26 MS/extremity: Positive for pain, left arm and hip. Exam: 09:26 Constitutional: This is a well developed, well nourished patient who is awake, alert, ps1 and in no acute distress. Head/Face: Normocephalic, atraumatic. Eyes: Pupils equal round and reactive to light, extra-ocular motions intact. Lids and lashes normal. Conjunctiva and sclera are non-icteric and not injected. Chest/axilla: Normal chest wall appearance and motion. Nontender with no deformity. No lesions are appreciated. Cardiovascular: Regular rate and rhythm. No gallops, murmurs, or rubs. Normal PMI, no JVD. No pulse deficits. Respiratory: Lungs have equal breath sounds bilaterally, clear to auscultation and percussion. No rales, rhonchi or wheezes noted. No increased work of breathing, no retractions or nasal flaring. Abdomen/GI: Soft, non-tender, with normal bowel sounds. No distension or tympany. No guarding or rebound. No evidence of tenderness throughout. Skin: Warm, dry with normal turgor. Normal color with no rashes, no lesions, and no evidence of cellulitis. 09:26 Musculoskeletal/extremity: contusion to left mid humerus. Left hip pain. No obvious injury. Rest of exam is normal. . Vital Signs: 08:57 BP 203 / 84; Pulse 78; Resp 16; Temp 97.0(TE); Pulse Ox 98% on R/A; Weight 77.11 kg lk1 (R); Height 5 ft. 3 in. (160.02 cm) (R); Pain 7/10; 10:55 BP 191 / 89; Pulse 78; Resp 18; Pulse Ox 95% on R/A; aj 08:57 Body Mass Index 30.11 (77.11 kg, 160.02 cm) lk1 MDM: 09:25 Patient medically screened. ps1 09:26 Data reviewed: vital signs, nurses notes. ps1 10/04 09:31 Order name: CBC with Diff ps1 10/04 09:31 Order name: CMP; Complete Time: 10:55 ps1 10/04 09:31 Order name: UA; Complete Time: 10:52 ps1 10/04 10:18 Order name: Urine Dipstick--Ancillary (enter results); Complete Time: 11:00 bd 10/04 10:42 Order name: Urine Microscopic Only; Complete Time: 10:52 EDMS 10/04 10:52 Order name: Urine Culture EDMS 10/04 09:31 Order name: CXR XRAY; Complete Time: 10:07 ps1 10/04 09:31 Order name: Aby Quinones XRTRACY; Complete Time: :07 ps1 Administered Medications: 10:55 Drug: Tylenol 650 mg Route: PO; silvestre 11:00 Follow up: Response: Medication administered at discharge. silvestre Disposition: 10/04/17 10:54 Discharged to Home. Impression: fall, contusion, UTI. - Condition is Stable. - Prescriptions for Keflex 500 mg Oral Capsule - take 1 capsule by ORAL route every 8 hours for 10 days; 30 capsule. - Medication Reconciliation Form, Thank You Letter, Antibiotic Education, Prescription Opioid Use form. - Follow up: Partha Abraham MD; When: As needed; Reason: Recheck today's complaints, Re-evaluation by your physician. Follow up: Emergency Department; When: As needed; Reason: Worsening of condition. - Problem is an acute exacerbation. - Symptoms are unchanged. Signatures: Dispatcher [employer] Radha Albert RN RN aj Kluge, Leah, RN RN lk1 Jonathan Desouza MD MD ps1
[2017-10-04 10:56] LABS: Urine Blood 1+ (NEG); Urine Glucose TRACE (NEG); Urine Protein 3+ (NEG)
[2017-10-04 11:16] VITALS: BP 191/89; O2SAT 95
[2017-10-04 11:17] VITALS: TEMP 97
== END 2017-10-04 11:01 | disposition home or self-care (01) ==
LOC: ER 08:42
DX: S40.022A Contusion of left upper arm, initial encounter (principal); N39.0 Urinary tract infection, site not specified; W18.30XA Fall on same level, unspecified, initial encounter; Y93.89 Activity, other specified; Y92.9 Unspecified place or not applicable; Z88.0 Allergy status to penicillin; Z88.5 Allergy status to narcotic agent; Z88.8 Allergy status to other drugs, medicaments and biological substances; E11.22 Type 2 diabetes mellitus with diabetic chronic kidney disease; N18.9 Chronic kidney disease, unspecified; F17.210 Nicotine dependence, cigarettes, uncomplicated; K72.90 Hepatic failure, unspecified without coma
CPT/HCPCS: 36415; 71045; 80053; 81003; 81015; 85025; 87077; 87086; 87088; 87186; 99284

== ENCOUNTER 2017-10-07 07:48 | Day surgery (SDC) | payer OTHER ==
--- OUTSIDE RECORDS SUMMARY | 2017-10-07 07:51 | XMS REPORT | Clinical Summary ---
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 insulin use status (HCC);CKD (chronic kidney disease), stage 4 (severe) (HCC);Ulcer of toe of left foot, with unspecified severity (HCC);Hepatic encephalopathy (HCC);CKD (chronic kidney disease), stage 3 (moderate);Non-intra ctable cyclical vomiting without nausea;Anxiety 01/03/2017 Orders Only General Internal Medicine 01/02/2017 Telephone Critical Care Ricardo Sgbg-md-Tdia Call Medicine Moise Valdez MD after 10/06/2016 Social History Tobacco Use Types Packs/Day Years [...] Range POC-Glucose Meter 154 (H)Comment: TESTED AT [address] 70 - 110 mg/[place] [address] Specimen Performing Laboratory Blood [address] [address] aPTT (01/07/2017 5:03 AM)Only the most recent of6 resultswithin the time period is included. Component Value Ref Range PTT 42.2 (H) 22.5 - 36.0 seconds Specimen Performing Laboratory Blood - Arm, [address] [address] Prothrombin time/INR (01/07/2017 5:03 AM)Only the most recent of8 resultswithin the time period is included. Component Value Ref Range Protime 14.8 (H) 11.7 - 14.7 seconds INR 1.2 <=5.9 Specimen Performing Laboratory Blood - Arm, Right [facility] [address] [address] Narrative RECOMMENDED COUMADIN/WARFARIN INR THERAPY RANGES STANDARD [...] mg/dl Specimen Performing Laboratory Blood - Arm, [address] [address] Magnesium (01/07/2017 5:03 AM)Only the most recent of3 resultswithin the time period is included. Component Value Ref Range Magnesium 2.1 1.6 - 2.6 mg/dL Specimen Performing Laboratory Blood - Arm, [address] [address] Hepatic function panel (01/07/2017 5:03 AM)Only the [...] U/L Specimen Performing Laboratory Blood - Arm, [address] [address] Comprehensive metabolic panel (01/07/2017 5:03 AM)Only the [...] PATIENTS. Specimen Performing Laboratory Blood - Arm, [facility] [address] [place] [address] XR chest 1 view portable / bedside [...] MD Report Verified Date/Time:01/06/2017 13:00:17 Reading Location: [facility] Radiology Reading Room Procedure Note Interface, External [...] Report Verified Date/Time: 01/06/2017 13:00:17 Reading Location: [facility] Radiology Reading Room mandible min 4 views [...] MD Report Verified Date/Time:01/06/2017 13:24:55 Reading Location: [facility] Reading Room Procedure Note Interface, External Ris [...] Report Verified Date/Time: 01/06/2017 13:24:55 Reading Location: [facility] Reading Room Herpes virus antibody, IgM (01/05/2017 11:53 AM) Component Value Ref Range Herpes Virus IGM NegativeComment: SEE ATTACHMENT Specimen Performing Laboratory Blood [address] [address] Herpes virus antibody, IgG (01/05/2017 11:53 AM) Component Value Ref Range Herpes Virus IGG Positive 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 Component Value Ref Range Factor V Activity 90.0 60.0 - 150.0 % Specimen Performing Laboratory Blood [address] [address] Narrative Effective 10/24/2013: Reference Range Change-Adult only New: 60.0-150.0 Previous: 50.0-150.0 Ammonia (01/05/2017 2:48 AM)Only the most recent of2 resultswithin the time period is included. Component Value Ref Range Ammonia 29 18 - 72 mol/L Specimen Performing Laboratory Blood [address] [address] Manual Differential (01/05/2017 2:47 AM) Specimen Performing Laboratory Blood [address] [address] CBC with platelet count + automated diff [...] - 0.20 K/L Specimen Performing Laboratory Blood [address] [address] Narrative 0.00 CBC with platelet count + automated diff (01/05/2017 2:47 AM)Only the most recent of4 resultswithin the time period is included. Specimen Performing Laboratory Blood Narrative The following orders were created for panel order CBC with platelet count + automated diff. Procedure Abnormality Status --------- ------ CBC with platelet count ...[[id number]]AbnormalFinal result Manual Differential[[id number]] Fi nal result Please view results for these tests on the individual orders. T Spot TB (01/04/2017 1:01 PM) Component Value Ref Range T-Spot TB Negative Neg Ctrl Spot Count 0 Panel A Spot 0 Panel B Spot [address] >20 Scan Result Specimen Performing Laboratory Blood [facility] [address] [facility], [address] [place] [address] CT abdomen/pelvis without iv contrast (01/04/2017 12:24 [...] MD Report Verified Date/Time:01/04/2017 13:42:00 Reading Location: [facility] Diagnostic Imaging Reading Room - [place] [address] Procedure Note Interface, External Ris In - [...] Report Verified Date/Time: 01/04/2017 13:42:00 Reading Location: [facility] Diagnostic Imaging Reading Room - [place] [address] myocardial perfusion PET (rest and stress) (01/04/2017 12:07 PM) Specimen Performing Laboratory [facility] Narrative FINAL REPORT PROCEDURE: Rest/Stress MYOCARDIAL PERFUSION PET with regadenoson\\XA9\\ CPT CODE: 21974 INDICATION: Preoperative risk stratification for liver transplant [...] stress.5. Normal extracardiac tracer distribution.6. No previous [facility] study for comparison. NONINVASIVE RISK STRATIFICATION: The above findings are considered low risk (<1% annual mortality rate) based on the following criterion: - Normal or small myocardial perfusion defect at rest or with stress (JACC. 2012;59(9):857-81.) Signed: Portia Guillen MD Report Verified Date/Time:01/04/2017 16:43:24 Reading Location: [address] Reading Room Procedure Note Interface, External Ris In - 01/19/2017 2:51 PM CDT FINAL REPORT PROCEDURE: Rest/Stress MYOCARDIAL PERFUSION PET with regadenoson\\XA9\\ CPT CODE: 07298 INDICATION: Preoperative risk stratification for liver transplant [...] Normal extracardiac tracer distribution. 6. No previous [facility] study for comparison. NONINVASIVE RISK STRATIFICATION: The above findings are considered low risk (<1% annual mortality rate) based on the following criterion: - Normal or small myocardial perfusion defect at rest or with stress (JACC. 2012;59(9):857-81.) Signed: Portia Guillen MD Report Verified Date/Time: 01/04/2017 16:43:24 Reading Location: [address] P327B [facility] Reading Room Treadmill tolerance(Non-Nuclear Treadmill) (01/04/2017 11:45 AM) Specimen Performing Laboratory [employer] Narrative Protocol Name Regadenoson Time In Exercise [...] (01/04/2017 4:55 AM) Specimen Performing Laboratory [facility] Narrative FINAL REPORT INDICATION: Pt with [...] MD Report Verified Date/Time:01/04/2017 05:34:37 Reading Location: [address] Transitional Reading Room Procedure Note Interface, [...] Report Verified Date/Time: 01/04/2017 05:34:37 Reading Location: [facility] C0[facility] Transitional Reading Room 12 lead (01/03/2017 1:16 PM) Specimen Performing Laboratory [employer] Narrative Ventricular Rate 81 BPM Atrial Rate 81 BPM P-R Interval 146 ms QRS Duration 92 ms Q-T Interval 422 ms QTC Calculation(Bazett) 490 ms P [place] 57 degrees R [place] -10 degrees T [place] 135 degrees Normal sinus rhythm T wave [...] 422 ms QTC Calculation(Bazett) 490 ms P [place] 57 degrees R [place] -10 degrees T [place] 135 degrees Normal sinus rhythm T wave [...] B POSITIVE Specimen Performing Laboratory Blood [facility] [address] [place] [address] Blood gas, arterial (01/03/2017 12:06 PM) Component [...] Laboratory Blood, Arterial - Arm, Right [facility] [address] [place] [address] 2D Echo W/Doppler(CW/PW/Color) (01/03/2017 11:56 AM) Specimen Performing Laboratory DIGISON[facility] Narrative Echocardiography Laboratory [address] [place] [address] Voice:[phone] Transthoracic Echocardiogram Pat.Name:CATHI ROWLEY Pat.ID:[id number] St.Date: 01/03/2017 Refer.MD:MOISE BHAKTA Exam Time: 11:56:00 AM Study Type:Echo Complete Height:63inWeight:181lb BSA: 1.86 m2 DOBAge:1980,36Y Sex: FEMALEBP:178/111 HR:88 bpmSonogrphr: [facility] Pat. Stat.:Inpatient Room:[facility] Reason for Study:Known or suspected heart failure [...] & Cardiac Out LVOT1.92 cm Parasternal Long [place] Ao An 1.92 cm (1.4-2.6) LV%fs 35.4 [...] - 01/03/2017 2:12 PM CDT Echocardiography Laboratory [address] [place] [address] Voice: [phone] Transthoracic Echocardiogram Pat.Name: CATHI ROWLEY Pat.ID: [id number] .Date: 01/03/2017 Refer.MD: MOISE BHAKTA Exam Time: 11:56:00 AM Study Type:Echo Complete Height: 63in Weight: 181lb BSA: 1.86 m2 Age: 6 1980,36Y Sex: FEMALE BP: 178/111 HR: 88 bpm Sonogrphr: [facility] mSith [facility] Pat. Stat.:Inpatient Room: [facility] Reason for Study:Known or suspected heart failure [...] Cardiac Out LVOT 1.92 cm Parasternal Long [place] Ao An 1.92 cm (1.4-2.6) LV%fs 35.4 [...] [facility] [address] [place] [address] Clostridium difficile Toxin PCR (01/03/2017 11:52 AM) Component Value Ref Range C.Diff Toxin, PCR Not Detected Not Detected Specimen Performing Laboratory Stool - Rectum [address] [address] Narrative This qualitative real-time polymerase chain reaction [...] Specimen Performing Laboratory Blood - Line, [place] [address] Screen, urine (01/03/2017 11:52 AM) Component Value Ref Range Preg Test, Ur Negative Specimen Performing Laboratory Urine - Urine, [place] [address] [address] Urinalysis w/ Microscopic (01/03/2017 11:52 AM) Component Value Ref Range Color, UA Yellow Clarity, UA Clear Specific Lester, UA 1.013 1.001 - 1.035 pH, UA [...] Specimen Performing Laboratory Urine - Urine, [place] [address] [address] Iron, TIBC, % sat. (without ferritin) (01/03/2017 11:51 AM) Component Value Ref Range Iron 59 40 - 160 ug/dL TIBC 160 (L) 250 - 450 ug/dL Iron % Saturation 37 20 - 55 % Specimen Performing Laboratory Blood - Line, Venous [address] [address] Actin (Smooth Muscle) Antibody, IgG (01/03/2017 11:51 [...] Blood - Line, Venous [facility] [place] [address] [place] [address] Narrative Performing Lab EZ [employer] [facility] [facility] [id number] [place] [address] Yared Costa MD Carbohydrate antigen 19-9 (CA 19-9) (01/03/2017 11:51 AM) Component Value Ref Range CA 19-9 9 <34 U/mL Comment: This test was performed using the Siemens ([employer]) Chemiluminescent method. Values obtained from different assay methods cannot be used interchangeably. CA19-9 levels, regardless of value, should not be interpreted as absolute evidence of the presence or absence of disease. Specimen Performing Laboratory Blood - Line, Venous [facility] [place] [address] [place] [address] Narrative Performing Lab E[facility] [address] [address] Yared Costa MD Ceruloplasmin (01/03/2017 11:51 AM) Component Value Ref Range Ceruloplasmin 35 18 - 53 mg/dL Comment: Adults:Males: 18-36 mg/dL Females: 18-53 mg/dL Pediatrics:Males (mg/dL)Females (mg/dL) 0-30 Days 8-25 3-28 31 Days-11 Month 15-4815-43 1-3 Fwcsd89-6060-42 4-6 Tlnoe09-9404-20 7-9 Qgwta86-0938-85 10-12 Wusyx52-4488-55 13-15 Yznla10-4672-90 16-18 Yhbpz49-3642-07 The pediatric ranges are derived from the following criteria: Amado SJ, Viviana JM, Katja J et al Pediatric reference ranges for Qmfm-3-Fzrrsibfucyln and ceruloplasmin. Clin. Chem 1997; 43:S1999 Pediatric Reference Ranges, 2nd., SF Amaod,et al. editors. [employer], [place], [place] 1997. Specimen Performing Laboratory Blood - Line, Venous [facility] [address] [address] Narrative Performing Lab *S[facility] [employer] [facility], [address] [place] [phone] B Nataliia BURNS, FCJONAH Zinc (01/03/2017 11:51 AM) Component Value Ref Range Zinc 58 (L) 60 - 130 mcg/dL Comment: This test was developed and its analytical performance characteristics have been determined by [facility]. It has not been cleared or approved by the US Food and Drug Administration. This assay has been validated pursuant to the CLIA regulations and is used for clinical purposes. Specimen Performing Laboratory Blood - Line, Venous [employer] [address] [address] Narrative Performing Lab *[facility] [employer] [facility] [facility], [address] [place] [phone] Dillon William MD, FCAP Vitamin D, 25-Hydroxy (01/03/2017 11:51 AM) Component Value Ref Range Vitamin D 25-Hydroxy <13.0 (L) 13.0 - 47.8 ng/mL Specimen Performing Laboratory Blood - Line, [address] [address] RPR (01/03/2017 11:51 AM) Component Value Ref Range RPR Nonreactive Nonreactive Specimen Performing Laboratory Blood - [address] [address] Uric acid (01/03/2017 11:51 AM) Component Value Ref Range Uric Acid 16.0 (H) 2.6 - 7.2 mg/dL Specimen Performing Laboratory Blood - [address] [address] Narrative Specimen slightly icteric T3 (01/03/2017 11:51 AM) Component Value Ref Range T3, Total 34 (L) 48 - 159 ng/dL Specimen Performing Laboratory Blood - [address] [address] Narrative Effective 05/08/2014: Reference Range Change New: 48-159 Previous: 60-181 Transferrin (01/03/2017 11:51 AM) Component Value Ref Range Transferrin 128 (L) 174 - 382 mg/dL Specimen Performing Laboratory Blood - Line, [address] [address] Narrative Specimen slightly icteric TSH (01/03/2017 11:51 AM) Component Value Ref Range TSH 1.79 0.35 - 4.94 uIU/mL Specimen Performing Laboratory Blood - Line, [address] [address] T4 (01/03/2017 11:51 AM) Component Value Ref Range T4, Total 4.5 (L) 4.9 - 11.7 ug/dL Specimen Performing Laboratory Blood - [address] [address] Hemoglobin A1c (01/03/2017 11:51 AM) Component Value Ref Range Hemoglobin A1C 7.6 (H) 4.3 - 6.1 % Specimen Performing Laboratory Blood - Line, Venous [address] [address] Gamma Glutamyl Transferase (GGT) (01/03/2017 11:51 AM) Component Value Ref Range GGT 53 9 - 64 U/L Specimen Performing Laboratory Blood - Line, Venous [address] [address] Narrative Specimen slightly icteric Bilirubin, direct (01/03/2017 11:51 AM) Component Value Ref Range Bilirubin, Direct 2.4 (H) 0.1 - 0.5 mg/dL Specimen Performing Laboratory Blood - Line, Venous [address] [address] Ethanol (01/03/2017 11:51 AM) Component Value Ref Range Ethanol Lvl <10 <=10 mg/dL Specimen Performing Laboratory Blood - Line, Venous [address] [address] Lipid panel (01/03/2017 11:51 AM) Component Value Ref Range Triglycerides 134 mg/dL Cholesterol 120 mg/dL HDL 7 mg/dL LDL Calculated 86 mg/dL Specimen Performing Laboratory Blood - Line, Venous [address] [address] Narrative Triglyceride Reference Range: Low Risk <150 Jqfyioixqk744-839 High Risk 200-499 Very High Risk>=500 Cholesterol Reference Range: Low Risk <200 Pefujbutqe194-988 High Risk>240 HDL Cholesterol Reference Range: Low Risk >=60 High Risk <40 LDL Cholesterol Reference Range: Optimal<100 Near Rhgbzyq084-790 Vhwiiqmell788-719 Ssdl827-844 Very High >=190 Specimen slightly icteric Mitochondria M2 Antibody (IgG) (01/03/2017 11:50 AM) Component Value Ref Range Mitochondria M2 Ab <20.0 See Note: U Comment: Reference Range: NEGATIVE:< OR=20.0 EQUIVOCAL: 20.1-24.9 POSITIVE:> OR=25.0 Specimen Performing Laboratory Blood - Line, Venous [facility] [address] [address] Narrative Performing Lab E[facility] [address] [address] Yared Costa MD Cytomegalovirus antibody, IgM (01/03/2017 11:50 AM) Component Value Ref Range CMV IgM Negative Specimen Performing Laboratory Blood - Line, [address] [address] Rukxz-0-gliqevucmsh (01/03/2017 11:50 AM) Component Value Ref Range Ozkov-6-Vfumhqzwpvs 254 (H) 83 - 199 mg/dL Specimen Performing Laboratory Blood - Line, Venous [facility] [address] [address] Narrative Performing Lab [facility] [address] [address] Yared Costa MD Alpha fetoprotein (AFP), tumor marker (01/03/2017 11:50 AM) Component Value Ref Range Alpha-Fetoprotein <2.0 <10.0 ng/mL Specimen Performing Laboratory Blood - Line, [address] [address] Narrative Effective 05/08/2014: Reference Range Change New: <10.0 Previous: 0.0-8.0 EBV-VCA antibody, IgM (01/03/2017 11:50 AM) Component Value Ref Range EBV VCA IgM Negative Specimen Performing Laboratory Blood - Line, [address] [address] EBV-VCA antibody, IgG (01/03/2017 11:50 AM) Component Value Ref Range EBV VCA IgG Positive Specimen Performing Laboratory Blood - Line, [address] [address] Hepatitis B core antibody, total (01/03/2017 11:50 AM) Component Value Ref Range Hep B Core Total Ab Nonreactive Nonreactive Specimen Performing Laboratory Blood - Line, [address] [address] Hepatitis B surface antibody (01/03/2017 11:50 AM) Component Value Ref Range Hep B S Ab <8.0 <8.0 mIU/mL Specimen Performing Laboratory Blood - Line, [address] [address] Cytomegalovirus antibody, IgG (01/03/2017 11:50 AM) Component Value Ref Range CMV IgG Positive Specimen Performing Laboratory Blood - Line, [address] [address] Anti-Nuclear Antibody (IVETTE) (01/03/2017 11:50 AM) Component Value Ref Range IVETTE Negative Negative Specimen Performing Laboratory Blood - Line, [address] [address] Ferritin (01/03/2017 11:50 AM) Component Value Ref Range Ferritin 1841 (H) 5 - 275 ng/mL Specimen Performing Laboratory Blood - Line, [address] [address] Narrative Effective 05/08/2014: Reference Range Change New: Male 5-275Previous: Male [address] Female 5-275Female 10-291 Carcinoembryonic Antigen (CEA) (01/03/2017 11:50 AM) Component Value Ref Range CEA, SERUM 2.0 0.0 - 5.0 ng/mL Specimen Performing Laboratory Blood - Line, [address] [address] HIV-1 Antigen with HIV-1/2 Antibody (01/03/2017 10:32 AM) Component Value Ref Range HIV-1 Antigen with HIV 1&2 Antibody Nonreactive Nonreactive Specimen Performing Laboratory Blood - Line, [address] [address] XR foot 2 views left (01/03/2017 9:21 [...] MD Report Verified Date/Time:01/03/2017 10:36:50 Reading Location: [facility] [id number] Ortho Consult Reading Room Procedure Note [...] Report Verified Date/Time: 01/03/2017 10:36:50 Reading Location: [address] Ortho Consult Reading Room Troponin I (01/03/2017 8:57 AM)Only the most recent of2 resultswithin the time period is included. Component Value Ref Range Troponin I 0.34 (HH) 0.00 - 0.03 ng/mL Specimen Performing Laboratory Blood - Line, [place] [address] Narrative Effective 05/08/2014: Reference Range Change New: [...] Specimen Performing Laboratory Blood - Line, Venous [place] [id number] Narrative Effective 05/08/2014: CK-MB Reference Range Change New: 0.0-6.6Previous: 0.0-4.9 CK-MB Reference Range: <6.7Normal 6.7-10.0Borderline >10.0 Abnormal Phosphorus (01/03/2017 4:40 AM) Component Value Ref Range Phosphorus 5.7 (H) 2.3 - 4.7 mg/dL Specimen Performing Laboratory Blood - Arm, [address] [address] Basic Metabolic Panel (01/03/2017 4:40 AM) Component [...] GFR. Specimen Performing Laboratory Blood - Arm, [address] [address] Narrative Specimen slightly icteric Acetaminophen level (01/03/2017 4:32 AM) Component Value Ref Range Acetaminophen Level <10.0 (L) 10.0 - 30.0 ug/mL Specimen Performing Laboratory Blood - Arm, [address] [address] US Renal with Doppler (01/03/2017 4:25 AM) [...] MD Report Verified Date/Time:01/03/2017 05:51:03 Reading Location: [address] Transitional Reading Room Procedure Note Interface, [...] Report Verified Date/Time: 01/03/2017 05:51:03 Reading Location: [address] Transitional Reading Room abdomen complete (01/03/2017 4:25 AM) Specimen Performing Laboratory [facility] Narrative FINAL REPORT INDICATION: sanjuana, acute liver [...] MD Report Verified Date/Time:01/03/2017 05:51:03 Reading Location: [facility] [id number] Transitional Reading Room Procedure Note Interface, [...] Report Verified Date/Time: 01/03/2017 05:51:03 Reading Location: [address] Reading Room Blood culture #2 (01/03/2017 2:12 AM)Only the most recent of2 resultswithin the time period is included. Component Value Ref Range Result No growth in 5 days Specimen Performing Laboratory Blood - Arm, [address] [address] Blood gas, venous (01/03/2017 2:11 AM) Component [...] % Specimen Performing Laboratory Blood - Arm, [address] [address] Urea Nitrogen, random urine (01/03/2017 2:00 AM) Component Value Ref Range Urea Nitrogen, Ur 303 mg/dL Specimen Performing Laboratory Urine [address] [address] Narrative Reference Range: No Normals Sodium, random urine (01/03/2017 2:00 AM) Component Value Ref Range Sodium Urine 60 meq/L Specimen Performing Laboratory Urine [address] [address] Narrative Reference Range: No Normals Creatinine, random urine (01/03/2017 2:00 AM) Component Value Ref Range Creatinine, Ur 118.7 mg/dL Specimen Performing Laboratory Urine [address] [address] Narrative Reference Range: No Normals Drug screen, urine, comprehensive (01/03/2017 2:00 AM) Specimen Performing Laboratory Urine [facility] [address] [address] Urinalysis w/Microscopic + Reflex to Culture (01/03/2017 1:58 AM) Component Value Ref Range Color, UA Yellow Clarity, UA Hazy Specific Lester, UA 1.012 1.001 - 1.035 pH, UA [...] Source Specimen Performing Laboratory Urine - Urine, [address] [address] Urine culture (01/03/2017 1:58 AM) Component Value Ref Range Result No growth Specimen Performing Laboratory Urine - Urine, [address] [address] Peripheral Blood Smear - Path Review (01/03/2017 1:57 AM) Component Value Ref Range RBC Morphology Polychromasia Anisocytosis Pathologist Review Cell counts confirmed Pathologist: Josefina Lara M.D. (electronic signature) Specimen Performing Laboratory Blood [address] [address] Lactic acid, venous, whole blood (01/03/2017 1:57 AM) Component Value Ref Range Lactate, Venous 0.8 0.5 - 2.2 mmol/L Specimen Performing Laboratory Blood [address] [address] Narrative Effective 10/23/2015: Units/Reference Range Change New: 0.5-2.2 mmol/LPrevious: 5-20 mg/dL Specimen slightly icteric Hepatitis panel, acute (01/03/2017 1:57 AM) Component Value Ref Range Hep A IgM Nonreactive Nonreactive Hep B C IgM Nonreactive Nonreactive Hepatitis C Ab Nonreactive Nonreactive hepatitis B Surface Ag Nonreactive Nonreactive Specimen Performing Laboratory Blood [address] [address] D-dimer (01/03/2017 1:57 AM) Component Value Ref Range D-Dimer, Quant 18.03 (H) <0.50 MG/L FEU Specimen Performing Laboratory Blood [address] [address] Narrative Intended Use: The D-Dimer Assay can be used to aid in the diagnosis of Deep Vein Thrombosis (DVT) and Pulmonary Embolism Disease (PED). In patients with low pre-test probability, various studies concerning STA Liatest D-dimer test have reported that with a cutoff value of 0.50 MG/L FEU, the Negative Predictive Value (NPV) regarding the exclusion of thrombosis is within 95-100% range. after 10/06/2016
--- OUTSIDE RECORDS SUMMARY | 2017-10-07 07:52 | XMS REPORT ---
:1980 [facility] Address [address] [place] [address] Care Team Providers Name Role Phone YONYNAHIDUS PHIPPS Unavailable Unavailable Problems This patient has no known problems. Allergies, Adverse Reactions, Alerts This patient has no known allergies or adverse reactions. Medications This patient has no known medications. Results Test Description Test Time Test Comments Text Results Atomic Results Result Comments HERPES VIRUS ANTIBODY, IGM 2017-01-11 21:46:00 Test Item Value Reference Range Comments HERPES VIRUS IGM (BEAKER) (test tzur=4873) Negative SEE ATTACHMENT BLOOD [id number] 06:00:00 Test Item Value Reference Range Comments CULTURE (BEAKER) (test ggbw=9703) No growth in 5 days BLOOD [id number] 06:00:00 Test Item Value Reference Range Comments CULTURE (BEAKER) (test kgtd=8846) No growth in 5 days POCT-GLUCOSE [id number] 12:11:00 Test Item Value Reference Range Comments POC-GLUCOSE METER (BEAKER) 154 mg/dL 70-110 TESTED AT [address] (test txjc=4616) [facility] [address] POCT-GLUCOSE [id number] 07:53:00 Test Item Value Reference Range Comments POC-GLUCOSE METER (BEAKER) 87 mg/dL 70-110 TESTED AT [address] (test pvnw=7800) [facility] [address] POCT-GLUCOSE [id number] 06:49:00 Test Item Value Reference Range Comments POC-GLUCOSE METER (BEAKER) 79 mg/dL 70-110 TESTED AT [address] (test dgme=5641) [facility] [address] COMPREHENSIVE METABOLIC [id number] 06:15:00 Test Item Value Reference Range Comments TOTAL PROTEIN (BEAKER) 5.1 gm/dL 6.0-8.3 (test yeic=181) ALBUMIN (BEAKER) (test 2.2 g/dL 3.5-5.0 rymp=5768) ALKALINE PHOSPHATASE 78 U/L 40-150 (BEAKER) (test vunn=067) BILIRUBIN TOTAL (BEAKER) 1.1 mg/dL 0.2-1.2 (test xwpp=792) SODIUM (BEAKER) (test 142 meq/L 136-145 eutw=821) POTASSIUM (BEAKER) (test 3.6 meq/L 3.5-5.1 hdfn=732) CHLORIDE (BEAKER) (test 106 meq/L 98-107 euqa=993) CO2 (BEAKER) (test 27 meq/L 22-29 mtsr=789) BLOOD UREA NITROGEN 29 mg/dL 7-21 (BEAKER) (test ygxf=727) CREATININE (BEAKER) (test 2.70 mg/dL 0.57-1.25 awut=725) GLUCOSE RANDOM (BEAKER) 79 mg/dL 70-105 (test jvsg=639) CALCIUM (BEAKER) (test 8.2 mg/dL 8.4-10.2 dmbp=612) AST (SGOT) (BEAKER) (test 256 U/L 5-34 enpa=542) ALT (SGPT) (BEAKER) (test 513 U/L 6-55 ejnm=196) EGFR (BEAKER) (test 20 mL/min/1.73 sq m ESTIMATED GFR IS NOT ujbv=9162) ACCURATE CREATININE CLEARANCE IN PREDICTING GLOMERULAR FILTRATION RATE. ESTIMATED GFR IS NOT APPLICABLE FOR DIALYSIS PATIENTS. [id number] 06:11:00 Test Item Value Reference Range Comments MAGNESIUM (BEAKER) (test hqtq=973) 2.1 mg/dL 1.6-2.6 HEPATIC FUNCTION [id number] 06:11:00 Test Item Value Reference Range Comments TOTAL PROTEIN (BEAKER) (test pxkf=899) 5.1 gm/dL 6.0-8.3 ALBUMIN (BEAKER) (test huem=4572) 2.2 g/dL 3.5-5.0 BILIRUBIN TOTAL (BEAKER) (test aywx=361) 1.1 mg/dL 0.2-1.2 BILIRUBIN DIRECT (BEAKER) (test yicf=088) 0.7 mg/dL 0.1-0.5 ALKALINE PHOSPHATASE (BEAKER) (test udil=546) 78 U/L 40-150 AST (SGOT) (BEAKER) (test yqss=403) 256 U/L 5-34 ALT (SGPT) (BEAKER) (test lltr=018) 513 U/L 6-55 [id number] 05:30:00 Test Item Value Reference Range Comments FIBRINOGEN LEVEL (BEAKER) (test llkn=672) 368 mg/dl 225-434 [id number] 05:30:00 Test Item Value Reference Range Comments PARTIAL THROMBOPLASTIN TIME (BEAKER) (test 42.2 seconds 22.5-36.0 vpgz=530) PROTHROMBIN [id number] 05:29:00 Test Item Value Reference Range Comments PROTIME (BEAKER) (test fwyi=991) 14.8 seconds 11.7-14.7 INR (BEAKER) (test bbtj=153) 1.2 <=5.9 RECOMMENDED COUMADIN/WARFARIN INR THERAPY RANGESSTANDARD DOSE: 2.0 - 3.0 Includes: PROPHYLAXIS forvenous thrombosis, systemic embolization; TREATMENT for venous thrombosis and/or pulmonary embolus.HIGH RISK: Target INR is 2.5-3.5 for patients with mechanical heart valves.POCT-GLUCOSE [id number] 21:09:00 Test Item Value Reference Range Comments POC-GLUCOSE METER (BEAKER) 178 mg/dL 70-110 TESTED AT [address] (test nqrr=5505) [place] [address] POCT-GLUCOSE [id number] 17:18:00 Test Item Value Reference Range Comments POC-GLUCOSE METER (BEAKER) 178 mg/dL 70-110 TESTED AT [address] (test wzlp=7524) [place] [address] POCT-GLUCOSE [id number] 13:48:00 Test Item Value Reference Range Comments POC-GLUCOSE METER (BEAKER) 150 mg/dL 70-110 TESTED AT [address] (test vxtt=5355) [place] [address] FACTOR 5 ACTIVITY (BLEEDING RISK)2017-01-06 10:04:00 Test Item Value Reference Range Comments FACTOR V ACTIVITY (BEAKER) (test tkts=788) 90.0 % 60.0-150.0 Effective 10/24/2013: Reference Range Change-Adult onlyNew: 60.0-150.0 Previous : 50.0-150.0CYTOMEGALOVIRUS ANTIBODY, [id number] 09:42:00 Test Item Value Reference Range Comments CYTOMEGALOVIRUS IGM ANTIBODY (BEAKER) (test Negative nmsd=877) HERPES VIRUS ANTIBODY, [id number] 08:59:00 Test Item Value Reference Range Comments HERPES VIRUS IGG (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 ufko=3816) CYTOMEGALOVIRUS ANTIBODY, [id number] 08:59:00 Test Item Value Reference Range Comments CYTOMEGALOVIRUS IGG ANTIBODY (BEAKER) (test Positive ierp=183) EBV-VCA ANTIBODY, [id number] 08:59:00 Test Item Value Reference Range Comments JASE-WALL VCA IGG (BEAKER) (test ltrc=210) Positive EBV-VCA ANTIBODY, [id number] 08:59:00 Test Item Value Reference Range Comments JASE-WALL VCA IGM (BEAKER) (test dfve=689) Negative POCT-GLUCOSE [id number] 07:59:00 Test Item Value Reference Range Comments POC-GLUCOSE METER (BEAKER) 81 mg/dL 70-110 TESTED AT [facility] [address] (test eebj=7321) [facility] [address] COMPREHENSIVE METABOLIC [id number] 06:23:00 Test Item Value Reference Range Comments TOTAL PROTEIN (BEAKER) 5.3 gm/dL 6.0-8.3 (test sfae=213) ALBUMIN (BEAKER) (test 2.4 g/dL 3.5-5.0 zwhx=4207) ALKALINE PHOSPHATASE 85 U/L 40-150 (BEAKER) (test qzvw=356) BILIRUBIN TOTAL (BEAKER) 1.5 mg/dL 0.2-1.2 (test epyd=958) SODIUM (BEAKER) (test 142 meq/L 136-145 dzyc=394) POTASSIUM (BEAKER) (test 3.5 meq/L 3.5-5.1 gnxw=716) CHLORIDE (BEAKER) (test 103 meq/L 98-107 qgez=122) CO2 (BEAKER) (test 27 meq/L 22-29 ffer=353) BLOOD UREA NITROGEN 30 mg/dL 7-21 (BEAKER) (test yxte=039) CREATININE (BEAKER) (test 3.00 mg/dL 0.57-1.25 ojab=800) GLUCOSE RANDOM (BEAKER) 99 mg/dL 70-105 (test jyga=645) CALCIUM (BEAKER) (test 8.7 mg/dL 8.4-10.2 srwz=669) AST (SGOT) (BEAKER) (test 364 U/L 5-34 sckl=455) ALT (SGPT) (BEAKER) (test 779 U/L 6-55 xdrt=578) EGFR (BEAKER) (test 18 mL/min/1.73 sq m ESTIMATED GFR IS NOT zfoq=2653) ACCURATE CREATININE CLEARANCE IN PREDICTING GLOMERULAR FILTRATION RATE. ESTIMATED GFR IS NOT APPLICABLE FOR DIALYSIS PATIENTS. [id number] 06:17:00 Test Item Value Reference Range Comments MAGNESIUM (BEAKER) (test uwuy=656) 1.8 mg/dL 1.6-2.6 HEPATIC FUNCTION [id number] 06:17:00 Test Item Value Reference Range Comments TOTAL PROTEIN (BEAKER) (test zcrj=608) 5.3 gm/dL 6.0-8.3 ALBUMIN (BEAKER) (test xqtf=3726) 2.4 g/dL 3.5-5.0 BILIRUBIN TOTAL (BEAKER) (test kcpn=873) 1.5 mg/dL 0.2-1.2 BILIRUBIN DIRECT (BEAKER) (test wgfc=351) 1.0 mg/dL 0.1-0.5 ALKALINE PHOSPHATASE (BEAKER) (test jtvu=890) 85 U/L 40-150 AST (SGOT) (BEAKER) (test xtlq=659) 364 U/L 5-34 ALT (SGPT) (BEAKER) (test arbv=475) 779 U/L 6-55 [id number] 06:00:00 Test Item Value Reference Range Comments FIBRINOGEN LEVEL (BEAKER) (test tdnl=397) 390 mg/dl 225-434 [id number] 06:00:00 Test Item Value Reference Range Comments PARTIAL THROMBOPLASTIN TIME (BEAKER) (test 40.2 seconds 22.5-36.0 fylx=538) PROTHROMBIN [id number] 05:59:00 Test Item Value Reference Range Comments PROTIME (BEAKER) (test jxtn=687) 14.6 seconds 11.7-14.7 INR (BEAKER) (test eufg=152) 1.2 <=5.9 RECOMMENDED COUMADIN/WARFARIN INR THERAPY RANGESSTANDARD DOSE: 2.0 - 3.0 Includes: PROPHYLAXIS forvenous thrombosis, systemic embolization; TREATMENT for venous thrombosis and/or pulmonary embolus.HIGH RISK: Target INR is 2.5-3.5 for patients with mechanical heart valves.POCT-GLUCOSE [id number] 21:46:00 Test Item Value Reference Range Comments POC-GLUCOSE METER (BEAKER) 153 mg/dL 70-110 TESTED AT [address] (test aact=3220) [facility] [address] POCT-GLUCOSE [id number] 18:47:00 Test Item Value Reference Range Comments POC-GLUCOSE METER (BEAKER) 181 mg/dL 70-110 TESTED AT [address] (test qjou=4128) [facility] [address] POCT-GLUCOSE [id number] 12:40:00 Test Item Value Reference Range Comments POC-GLUCOSE METER (BEAKER) 178 mg/dL 70-110 TESTED AT [address] (test dogu=8615) [facility] [address] POCT-GLUCOSE [id number] 07:51:00 Test Item Value Reference Range Comments POC-GLUCOSE METER (BEAKER) 166 mg/dL 70-110 TESTED AT [address] (test alth=4338) [facility] [address] COMPREHENSIVE METABOLIC [id number] 03:26:00 Test Item Value Reference Range Comments TOTAL PROTEIN (BEAKER) 5.2 gm/dL 6.0-8.3 (test kkmp=570) ALBUMIN (BEAKER) (test 2.3 g/dL 3.5-5.0 ekjg=3338) ALKALINE PHOSPHATASE 72 U/L 40-150 (BEAKER) (test gurg=522) BILIRUBIN TOTAL (BEAKER) 2.0 mg/dL 0.2-1.2 (test ysez=471) SODIUM (BEAKER) (test 140 meq/L 136-145 qroo=111) POTASSIUM (BEAKER) (test 3.3 meq/L 3.5-5.1 szbt=265) CHLORIDE (BEAKER) (test 99 meq/L 98-107 dmut=098) CO2 (BEAKER) (test 29 meq/L 22-29 xoay=250) BLOOD UREA NITROGEN 35 mg/dL 7-21 (BEAKER) (test ywlv=607) CREATININE (BEAKER) (test 3.44 mg/dL 0.57-1.25 hiug=730) GLUCOSE RANDOM (BEAKER) 151 mg/dL 70-105 (test okbn=342) CALCIUM (BEAKER) (test 8.6 mg/dL 8.4-10.2 fqrf=234) AST (SGOT) (BEAKER) (test 506 U/L 5-34 hlwk=417) ALT (SGPT) (BEAKER) (test 1009 U/L 6-55 ktle=167) EGFR (BEAKER) (test 15 mL/min/1.73 sq m ESTIMATED GFR IS NOT pnpl=0645) ACCURATE CREATININE CLEARANCE IN PREDICTING GLOMERULAR FILTRATION RATE. ESTIMATED GFR IS NOT APPLICABLE FOR DIALYSIS PATIENTS. [id number] 03:22:00 Test Item Value Reference Range Comments MAGNESIUM (BEAKER) (test jana=363) 1.4 mg/dL 1.6-2.6 HEPATIC FUNCTION [id number] 03:22:00 Test Item Value Reference Range Comments TOTAL PROTEIN (BEAKER) (test ebqt=825) 5.2 gm/dL 6.0-8.3 ALBUMIN (BEAKER) (test desv=6988) 2.3 g/dL 3.5-5.0 BILIRUBIN TOTAL (BEAKER) (test sbcq=471) 2.0 mg/dL 0.2-1.2 BILIRUBIN DIRECT (BEAKER) (test yuuq=716) 1.3 mg/dL 0.1-0.5 ALKALINE PHOSPHATASE (BEAKER) (test zjwk=000) 72 U/L 40-150 AST (SGOT) (BEAKER) (test jvww=951) 506 U/L 5-34 ALT (SGPT) (BEAKER) (test zpop=905) 1009 U/L 6-55 [id number] 03:12:00 Test Item Value Reference Range Comments AMMONIA (BEAKER) (test ffvh=534) 29 mol/L 18-72 [id number] 03:10:00 Test Item Value Reference Range Comments PARTIAL THROMBOPLASTIN TIME (BEAKER) (test 42.3 seconds 22.5-36.0 avcg=184) PROTHROMBIN [id number] 03:09:00 Test Item Value Reference Range Comments PROTIME (BEAKER) (test ezfs=163) 16.4 seconds 11.7-14.7 INR (BEAKER) (test yclj=336) 1.3 <=5.9 RECOMMENDED COUMADIN/WARFARIN INR THERAPY RANGESSTANDARD DOSE: 2.0 - 3.0 Includes: PROPHYLAXIS forvenous thrombosis, systemic embolization; TREATMENT for venous thrombosis and/or pulmonary embolus.HIGH RISK: Target INR is 2.5-3.5 for patients with mechanical heart valves.[id number] 03:09:00 Test Item Value Reference Range Comments FIBRINOGEN LEVEL (BEAKER) (test alts=551) 413 mg/dl 225-434 CBC W/PLT COUNT & AUTO [id number] 03:09:00 Test Item Value Reference Range Comments WHITE BLOOD CELL COUNT (BEAKER) (test dsup=760) 2.9 K/ L 4.0-10.0 RED BLOOD CELL COUNT (BEAKER) (test nhym=024) 3.10 M/ L 4.00-5.00 HEMOGLOBIN (BEAKER) (test qock=770) 9.5 GM/DL 12.0-15.0 HEMATOCRIT (BEAKER) (test urbm=228) 29.2 % 36.0-45.0 MEAN CORPUSCULAR VOLUME (BEAKER) (test vpkb=404) 94.4 fL 82.0-99.0 MEAN CORPUSCULAR HEMOGLOBIN (BEAKER) (test 30.8 pg 27.0-33.0 wtgw=266) MEAN CORPUSCULAR HEMOGLOBIN CONC (BEAKER) (test 32.6 GM/DL 32.0-36.0 ihee=972) RED CELL DISTRIBUTION WIDTH (BEAKER) (test 15.2 % 10.3-14.2 phek=197) PLATELET COUNT (BEAKER) (test ibwu=312) 118 K/CU MM 150-430 MEAN PLATELET VOLUME (BEAKER) (test epuz=542) 9.2 fL 6.5-10.5 NUCLEATED RED BLOOD CELLS (BEAKER) (test 0 /100 WBC 0-0 kret=840) NEUTROPHILS RELATIVE PERCENT (BEAKER) (test 59 % zxgw=712) LYMPHOCYTES RELATIVE PERCENT (BEAKER) (test 27 % pmvx=778) MONOCYTES RELATIVE PERCENT (BEAKER) (test 10 % eufe=049) EOSINOPHILS RELATIVE PERCENT (BEAKER) (test 4 % ntry=549) BASOPHILS RELATIVE PERCENT (BEAKER) (test 1 % izwj=521) NEUTROPHILS ABSOLUTE COUNT (BEAKER) (test 1.71 K/ L 1.80-8.00 rpky=558) LYMPHOCYTES ABSOLUTE COUNT (BEAKER) (test 0.78 K/ L 1.48-4.50 mbxn=423) MONOCYTES ABSOLUTE COUNT (BEAKER) (test 0.29 K/ L 0.00-1.30 ewwk=246) EOSINOPHILS ABSOLUTE COUNT (BEAKER) (test 0.11 K/ L 0.00-0.50 bvyo=598) BASOPHILS ABSOLUTE COUNT (BEAKER) (test 0.02 K/ L 0.00-0.20 sicu=329) 0.00POCT-GLUCOSE [id number] 22:33:00 Test Item Value Reference Range Comments POC-GLUCOSE METER (BEAKER) 230 mg/dL 70-110 TESTED AT [address] (test xexb=2131) [place] [address] POCT-GLUCOSE [id number] 18:17:00 Test Item Value Reference Range Comments POC-GLUCOSE METER (BEAKER) 222 mg/dL 70-110 TESTED AT [address] (test wegp=3157) [place] [id number] COMPREHENSIVE METABOLIC [id number] 16:59:00 Test Item Value Reference Range Comments TOTAL PROTEIN (BEAKER) 4.9 gm/dL 6.0-8.3 (test yikb=056) ALBUMIN (BEAKER) (test 2.2 g/dL 3.5-5.0 okdl=4807) ALKALINE PHOSPHATASE 71 U/L 40-150 (BEAKER) (test lnjh=456) BILIRUBIN TOTAL (BEAKER) 2.2 mg/dL 0.2-1.2 (test wggy=761) SODIUM (BEAKER) (test 140 meq/L 136-145 ljnz=375) POTASSIUM (BEAKER) (test 3.3 meq/L 3.5-5.1 jymj=187) CHLORIDE (BEAKER) (test 99 meq/L 98-107 zwnb=168) CO2 (BEAKER) (test 28 meq/L 22-29 einn=673) BLOOD UREA NITROGEN 36 mg/dL 7-21 (BEAKER) (test vljl=041) CREATININE (BEAKER) (test 3.57 mg/dL 0.57-1.25 rtkl=076) GLUCOSE RANDOM (BEAKER) 199 mg/dL 70-105 (test bbwk=089) CALCIUM (BEAKER) (test 8.5 mg/dL 8.4-10.2 wvzv=198) AST (SGOT) (BEAKER) (test 640 U/L 5-34 xvlu=151) ALT (SGPT) (BEAKER) (test 1071 U/L 6-55 iqzh=974) EGFR (BEAKER) (test 15 mL/min/1.73 sq m ESTIMATED GFR IS NOT nfpt=3008) ACCURATE CREATININE CLEARANCE IN PREDICTING GLOMERULAR FILTRATION RATE. ESTIMATED GFR IS NOT APPLICABLE FOR DIALYSIS PATIENTS. PERIPHERAL BLOOD SMEAR - PATHOLOGIST [id number] 15:30:00 Test Item Value Reference Range Comments RBC MORPHOLOGY (BEAKER) (test Polychromasia ikdv=1819) RBC MORPHOLOGY (BEAKER) (test Anisocytosis verc=57157) PERIPHERAL SMR REVIEW Cell counts confirmed (BEAKER) (test pafr=7590) [id number] Josefina Lara M.D. (BEAKER) (test iuhx=5515) (electronic signature) PROTHROMBIN TIME/[id number] 15:12:00 Test Item Value Reference Range Comments PROTIME (BEAKER) (test pljo=210) 16.6 seconds 11.7-14.7 INR (BEAKER) (test rmur=227) 1.4 <=5.9 RECOMMENDED COUMADIN/WARFARIN INR THERAPY RANGESSTANDARD DOSE: 2.0 - 3.0 Includes: PROPHYLAXIS forvenous thrombosis, systemic embolization; TREATMENT for venous thrombosis and/or pulmonary embolus.HIGH RISK: Target INR is 2.5-3.5 for patients with mechanical heart valves.ANTI-NUCLEAR ANTIBODY (IVETTE)2017-01-04 14:32:00 Test Item Value Reference Range Comments ANTI-NUCLEAR ANTIBODY (IVETTE) (BEAKER) (test Negative Negative dagy=870) POCT-GLUCOSE [id number] 12:47:00 Test Item Value Reference Range Comments POC-GLUCOSE METER (BEAKER) 212 mg/dL 70-110 TESTED AT [facility] [address] [place] [address] (test gndq=3228) [facility] [address] [id number] 12:34:00 Test Item Value Reference Range Comments RPR SCREEN ([employer]) (test vawy=790) Nonreactive Nonreactive CLOSTRIDIUM DIFFICILE TOXIN [id number] 10:12:00 Test Item Value Reference Range Comments CLOSTRIDIUM DIFFICILE TOXIN, PCR ([employer]) (test Not Detected Not Detected wwya=0138) This qualitative real-time polymerase chain reaction assay [...] Value Reference Range Comments FACTOR V ACTIVITY ([employer] [facility] Media[facility]) (test ifhc=623) 86.0 % 60.0-150.0 Effective 10/24/2013: Reference Range Change-Adult onlyNew: 60.0-150.0 Previous : 50.0-150.0FACTOR 5 ACTIVITY (BLEEDING RISK)2017-01-04 09:13:00 Test Item Value Reference Range Comments FACTOR V ACTIVITY (BEAKER) (test gsur=131) 56.0 % 60.0-150.0 Effective 10/24/2013: Reference Range Change-Adult onlyNew: 60.0-150.0 Previous : 50.0-150.0POCT-GLUCOSE [id number] 06:40:00 Test Item Value Reference Range Comments POC-GLUCOSE METER ([employer]) 167 mg/dL 70-110 TESTED AT [facility] [address] (test titt=4865) [facility] [address] COMPREHENSIVE METABOLIC [id number] 04:08:00 Test Item Value Reference Range Comments TOTAL PROTEIN ([employer] [facility] [employer]) 4.7 gm/dL 6.0-8.3 (test cahf=109) ALBUMIN (BEAKER) (test 2.1 g/dL 3.5-5.0 plkz=9755) ALKALINE PHOSPHATASE 71 U/L 40-150 (BEAKER) (test jkhz=447) BILIRUBIN TOTAL (BEAKER) 2.6 mg/dL 0.2-1.2 (test wzlk=390) SODIUM (BEAKER) (test 140 meq/L 136-145 mbwm=968) POTASSIUM (BEAKER) (test 2.8 meq/L 3.5-5.1 bose=211) CHLORIDE (BEAKER) (test 95 meq/L 98-107 avrx=576) CO2 (BEAKER) (test 31 meq/L 22-29 avjo=280) BLOOD UREA NITROGEN 39 mg/dL 7-21 (BEAKER) (test axhu=290) CREATININE (BEAKER) (test 4.10 mg/dL 0.57-1.25 apbi=943) GLUCOSE RANDOM (BEAKER) 155 mg/dL 70-105 (test wfib=314) CALCIUM (BEAKER) (test 8.2 mg/dL 8.4-10.2 udeo=467) AST (SGOT) (BEAKER) (test 846 U/L 5-34 ttfk=108) ALT (SGPT) (BEAKER) (test 1091 U/L 6-55 ljsq=775) EGFR (BEAKER) (test mL/min/1.73 sq m INSUFFICIENT CLINICAL DATA gacz=5412) TO CALCULATE ESTIMATED GFR. Specimen slightly ictericHEPATIC FUNCTION [id number] 04:06:00 Test Item Value Reference Range Comments TOTAL PROTEIN (BEAKER) (test ynfw=146) 4.7 gm/dL 6.0-8.3 ALBUMIN (BEAKER) (test wotk=1008) 2.1 g/dL 3.5-5.0 BILIRUBIN TOTAL (BEAKER) (test xsxj=074) 2.6 mg/dL 0.2-1.2 BILIRUBIN DIRECT (BEAKER) (test mfkg=710) 1.8 mg/dL 0.1-0.5 ALKALINE PHOSPHATASE (BEAKER) (test qbhs=872) 71 U/L 40-150 AST (SGOT) (BEAKER) (test ovgc=794) 846 U/L 5-34 ALT (SGPT) (BEAKER) (test yows=454) 1091 U/L 6-55 Specimen slightly [id number] 04:01:00 Test Item Value Reference Range Comments FIBRINOGEN LEVEL (BEAKER) (test zxpe=442) 379 mg/dl 225-434 [id number] 04:01:00 Test Item Value Reference Range Comments PARTIAL THROMBOPLASTIN TIME (BEAKER) (test 40.7 seconds 22.5-36.0 vedj=347) PROTHROMBIN TIME/[id number] 04:00:00 Test Item Value Reference Range Comments PROTIME (BEAKER) (test uigi=510) 18.7 seconds 11.7-14.7 INR (BEAKER) (test ibow=743) 1.6 <=5.9 RECOMMENDED COUMADIN/WARFARIN INR THERAPY RANGESSTANDARD DOSE: 2.0 - 3.0 Includes: PROPHYLAXIS forvenous thrombosis, systemic embolization; TREATMENT for venous thrombosis and/or pulmonary embolus.HIGH RISK: Target INR is 2.5-3.5 for patients with mechanical heart valves.CBC W/PLT COUNT & AUTO [id number] 03:56:00 Test Item Value Reference Range Comments WHITE BLOOD CELL COUNT (BEAKER) (test iama=096) 3.1 K/ L 4.0-10.0 RED BLOOD CELL COUNT (BEAKER) (test zxud=726) 2.85 M/ L 4.00-5.00 HEMOGLOBIN (BEAKER) (test vmum=407) 8.8 GM/DL 12.0-15.0 HEMATOCRIT (BEAKER) (test hgbr=268) 26.6 % 36.0-45.0 MEAN CORPUSCULAR VOLUME (BEAKER) (test emnq=261) 93.4 fL 82.0-99.0 MEAN CORPUSCULAR HEMOGLOBIN (BEAKER) (test 30.9 pg 27.0-33.0 bnug=168) MEAN CORPUSCULAR HEMOGLOBIN CONC (BEAKER) (test 33.0 GM/DL 32.0-36.0 nocw=951) RED CELL DISTRIBUTION WIDTH (BEAKER) (test 14.9 % 10.3-14.2 srwz=469) PLATELET COUNT (BEAKER) (test cgdf=155) 98 K/CU MM 150-430 MEAN PLATELET VOLUME (BEAKER) (test saks=310) 9.1 fL 6.5-10.5 NUCLEATED RED BLOOD CELLS (BEAKER) (test 0 /100 WBC 0-0 lkck=081) NEUTROPHILS RELATIVE PERCENT (BEAKER) (test 55 % yhdy=092) LYMPHOCYTES RELATIVE PERCENT (BEAKER) (test 27 % xqnf=791) MONOCYTES RELATIVE PERCENT (BEAKER) (test 12 % dsrw=483) EOSINOPHILS RELATIVE PERCENT (BEAKER) (test 5 % otoa=912) BASOPHILS RELATIVE PERCENT (BEAKER) (test 1 % yrwj=564) NEUTROPHILS ABSOLUTE COUNT (BEAKER) (test 1.71 K/ L 1.80-8.00 asaw=065) LYMPHOCYTES ABSOLUTE COUNT (BEAKER) (test 0.83 K/ L 1.48-4.50 rbzi=784) MONOCYTES ABSOLUTE COUNT (BEAKER) (test vvsj=074) 0.38 K/ L 0.00-1.30 EOSINOPHILS ABSOLUTE COUNT (BEAKER) (test 0.14 K/ L 0.00-0.50 uiln=391) BASOPHILS ABSOLUTE COUNT (BEAKER) (test eivj=415) 0.02 K/ L 0.00-0.20 0.00POCT-GLUCOSE [id number] 00:19:00 Test Item Value Reference Range Comments POC-GLUCOSE METER (BEAKER) 159 mg/dL 70-110 TESTED AT [address] (test qudm=8891) [place] [id number] POCT-GLUCOSE [id number] 18:56:00 Test Item Value Reference Range Comments POC-GLUCOSE METER (BEAKER) 192 mg/dL 70-110 TESTED AT [address] (test ysrv=2813) [place] [id number] COMPREHENSIVE METABOLIC [id number] 16:55:00 Test Item Value Reference Range Comments TOTAL PROTEIN (BEAKER) 4.5 gm/dL 6.0-8.3 (test vppp=371) ALBUMIN (BEAKER) (test 2.0 g/dL 3.5-5.0 updo=6426) ALKALINE PHOSPHATASE 74 U/L 40-150 (BEAKER) (test kktz=987) BILIRUBIN TOTAL (BEAKER) 2.9 mg/dL 0.2-1.2 (test htts=229) SODIUM (BEAKER) (test 142 meq/L 136-145 qjvw=741) POTASSIUM (BEAKER) (test 3.0 meq/L 3.5-5.1 zjom=981) CHLORIDE (BEAKER) (test 95 meq/L 98-107 nrlu=726) CO2 (BEAKER) (test 33 meq/L 22-29 fvgq=321) BLOOD UREA NITROGEN 45 mg/dL 7-21 (BEAKER) (test qgkp=679) CREATININE (BEAKER) (test 4.87 mg/dL 0.57-1.25 pxdo=115) GLUCOSE RANDOM (BEAKER) 177 mg/dL 70-105 (test lzlb=717) CALCIUM (BEAKER) (test 8.4 mg/dL 8.4-10.2 anrp=246) AST (SGOT) (BEAKER) (test 1283 U/L 5-34 lspv=745) ALT (SGPT) (BEAKER) (test 1314 U/L 6-55 kwqy=222) EGFR (BEAKER) (test mL/min/1.73 sq m INSUFFICIENT CLINICAL DATA uuqw=3766) TO CALCULATE ESTIMATED GFR. Specimen slightly ictericPROTHROMBIN [id number] 16:37:00 Test Item Value Reference Range Comments PROTIME (BEAKER) (test smra=784) 20.9 seconds 11.7-14.7 INR (BEAKER) (test wcmo=771) 1.8 <=5.9 RECOMMENDED COUMADIN/WARFARIN INR THERAPY RANGESSTANDARD DOSE: 2.0 - 3.0 Includes: PROPHYLAXIS forvenous thrombosis, systemic embolization; TREATMENT for venous thrombosis and/or pulmonary embolus.HIGH RISK: Target INR is 2.5-3.5 for patients with mechanical heart valves.HEPATITIS B SURFACE [id number] 14:05:00 Test Item Value Reference Range Comments HEPATITIS B SURFACE ANTIBODY (BEAKER) (test < mIU/mL <8.0 mqgg=615) HEPATITIS B CORE ANTIBODY, [id number] 13:43:00 Test Item Value Reference Range Comments HEPATITIS B CORE TOTAL ANTIBODY (BEAKER) (test Nonreactive Nonreactive utzt=852) BLOOD GAS, [id number] 13:35:00 Test Item Value Reference Range Comments PH ARTERIAL (BEAKER) (test opbu=418) 7.44 7.35-7.45 PCO2 ARTERIAL (BEAKER) (test mefo=444) 55 mmHg 35-45 PO2 ARTERIAL (BEAKER) (test owjx=599) 99 mmHg 80-90 O2 SATURATION ARTERIAL (BEAKER) (test ycmr=844) 97.4 % 96.0-97.0 HCO3 ARTERIAL (BEAKER) (test bill=681) 36 mmol/L 21-29 BASE EXCESS ARTERIAL (BEAKER) (test bcwh=881) 10.3 mmol/L -2.0-3.0 PATIENT TEMPERATURE (BEAKER) (test lgoz=7544) 37.5 C FIO2 (BEAKER) (test aesf=8301) 28.0 % URINALYSIS W/ [id number] 13:16:00 Test Item Value Reference Range Comments COLOR (BEAKER) (test dnpo=476) Yellow CLARITY (BEAKER) (test ejdv=797) Clear SPECIFIC GRAVITY UA (BEAKER) (test wknn=493) 1.013 1.001-1.035 PH UA (BEAKER) (test nwuw=640) 6.0 5.0-8.0 PROTEIN UA (BEAKER) (test uffl=880) 300 mg/dL Negative GLUCOSE UA (BEAKER) (test wjos=469) 30 mg/dL Negative KETONES UA (BEAKER) (test pkct=759) Trace Negative BILIRUBIN UA (BEAKER) (test ltms=748) Positive Negative BLOOD UA (BEAKER) (test barg=950) Moderate Negative NITRITE UA (BEAKER) (test otpx=848) Negative Negative LEUKOCYTE ESTERASE UA (BEAKER) (test qswn=264) Moderate Negative UROBILINOGEN UA (BEAKER) (test hozj=312) 2.0 mg/dL 0.2-1.0 RBC UA (BEAKER) (test sjbn=287) 2 /HPF WBC UA (BEAKER) (test klqx=978) 41 /HPF HYALINE CASTS (BEAKER) (test bnda=440) 10 /LPF AMORPHOUS CRYSTALS (BEAKER) (test alrv=5596) Rare SOURCE(BEAKER) (test jjtn=7995) Urine, [place] VITAMIN D, [id number] 13:14:00 Test Item Value Reference Range Comments VITAMIN D 25-OH (BEAKER) (test xgoo=7004) < ng/mL 13.0-47.8 ALPHA FETOPROTEIN (AFP), TUMOR [id number] 13:06:00 Test Item Value Reference Range Comments ALPHA-FETOPROTEIN (BEAKER) (test kgaw=1938) < ng/mL <10.0 Effective 05/08/2014: Reference Range ChangeNew: <10.0 Previous: 0.0- 8.0HEMOGLOBIN [id number] 13:05:00 Test Item Value Reference Range Comments HEMOGLOBIN A1C (BEAKER) (test fora=754) 7.6 % 4.3-6.1 CARCINOEMBRYONIC ANTIGEN (CEA)2017-01-03 12:59:00 Test Item Value Reference Range Comments CARCINOEMBRYONIC ANTIGEN (BEAKER) (test aoko=295) 2.0 ng/mL 0.0-5.0 [id number] 12:59:00 Test Item Value Reference Range Comments FERRITIN (BEAKER) (test viwq=465) 1841 ng/mL 5-275 Effective 05/08/2014: Reference Range ChangeNew: Male 5-275 Previous: Male 22-322 Female 5-275 Female [id number] 12:58:00 Test Item Value Reference Range Comments T4 TOTAL (BEAKER) (test orpq=114) 4.5 ug/dL 4.9-11.7 [id number] 12:58:00 Test Item Value Reference Range Comments THYROID STIMULATING HORMONE (BEAKER) (test 1.79 uIU/mL 0.35-4.94 utev=133) [id number] 12:58:00 Test Item Value Reference Range Comments T3 TOTAL (BEAKER) (test ipkr=875) 34 ng/dL 48-159 Effective 05/08/2014: Reference Range ChangeNew: 48-159 Previous: 60- 181CALCIUM, [id number] 12:47:00 Test Item Value Reference Range Comments CALCIUM IONIZED (BEAKER) (test wytn=586) 1.05 mmol/L 1.12-1.27 PH, BLOOD (BEAKER) (test pzxa=5925) 7.43 [id number] 12:42:00 Test Item Value Reference Range Comments TRANSFERRIN (BEAKER) (test vqvn=936) 128 mg/dL 174-382 Specimen slightly ictericIRON, TIBC, % SAT. (WITHOUT FERRITIN)2017-01-03 12:42: 00 Test Item Value Reference Range Comments IRON (BEAKER) (test dbzg=202) 59 ug/dL 40-160 TOTAL IRON BINDING CAPACITY (BEAKER) (test 160 ug/dL 250-450 jtqk=674) IRON % SATURATION (2) (BEAKER) (test nfbh=2816) 37 % 20-55 URIC [id number] 12:40:00 Test Item Value Reference Range Comments URIC ACID (BEAKER) (test jouq=570) 16.0 mg/dL 2.6-7.2 Specimen slightly ictericLIPID [id number] 12:40:00 Test Item Value Reference Range Comments TRIGLYCERIDES (BEAKER) (test sonj=940) 134 mg/dL CHOLESTEROL (BEAKER) (test rwbc=771) 120 mg/dL HDL CHOLESTEROL (BEAKER) (test wwgn=717) 7 mg/dL LDL CHOLESTEROL CALCULATED (BEAKER) (test 86 mg/dL ovoe=436) Triglyceride Reference Range: Low Risk <150 Borderline 150- 199 High Risk 200-499 Very High Risk >=500Cholesterol Reference Range: Low Risk <200 Borderline 200-239 High Risk > 240HDL Cholesterol Reference Range: Low Risk >=60 High Risk <40LDL Cholesterol Reference Range: Optimal <100 Near Optimal 100-129 Borderline 130-159 High 160-189 Very High >=190 Specimen slightly ictericBILIRUBIN, [id number] 12:40:00 Test Item Value Reference Range Comments BILIRUBIN DIRECT (BEAKER) (test hsyr=683) 2.4 mg/dL 0.1-0.5 GAMMA GLUTAMYL TRANSFERASE (GGT)2017-01-03 12:40:00 Test Item Value Reference Range Comments GAMMA GLUTAMYL TRANSFERASE (BEAKER) (test zxlo=860) 53 U/L 9-64 Specimen slightly [id number] 12:39:00 Test Item Value Reference Range Comments ETHANOL (BEAKER) (test hops=798) < mg/dL <=10 SCREEN, [id number] 12:36:00 Test Item Value Reference Range Comments TEST URINE (BEAKER) (test hjho=253) Negative POCT-GLUCOSE [id number] 12:34:00 Test Item Value Reference Range Comments POC-GLUCOSE METER (MADIE) 189 mg/dL 70-110 TESTED AT [facility] [address] (test nezc=6050) [facility] [address] HIV-1 ANTIGEN WITH HIV-1/2 [id number] 11:58:00 Test Item Value Reference Range Comments HIV-1 ANTIGEN WITH HIV 1\T\2 ANTIBODY (2) Nonreactive Nonreactive (BEAKER) (test rynh=7767) TROPONIN [id number] 09:44:00 Test Item Value Reference Range Comments TROPONIN I (BEAKER) (test wsce=000) 0.34 ng/mL 0.00-0.03 Effective 05/08/2014: Reference Range [...] and persistent tachyarrhythmia.CREATINE KINASE (CK), TOTAL AND [id number] 09:43:00 Test Item Value Reference Range Comments CREATINE KINASE TOTAL (CHANDNIAKER) (test jnzg=567) 301 U/L 29-200 CREATINE KINASE-MB (BEAKER) (test uuzl=929) 5.6 ng/mL 0.0-6.6 CREATINE KINASE-MB INDEX (BEAKER) (test reiw=892) 1.9 % Effective 05/08/2014: CK-MB Reference Range ChangeNew: 0.0-6.6 Previous: 0.0- 4.9CK-MB Reference Range:<6.7 Normal6.7-10.0 Borderline>10.0 AbnormalACETAMINOPHEN [id number] 08:31:00 Test Item Value Reference Range Comments ACETAMINOPHEN LEVEL (BEAKER) (test ffdi=148) < ug/mL 10.0-30.0 TROPONIN [id number] 05:53:00 Test Item Value Reference Range Comments TROPONIN I (BEAKER) (test npwf=723) 0.33 ng/mL 0.00-0.03 Effective 05/08/2014: Reference Range [...] acute neurological disease, and persistent tachyarrhythmia.BASIC METABOLIC [id number] 05:53:00 Test Item Value Reference Range Comments SODIUM (BEAKER) (test 144 meq/L 136-145 pgfh=058) POTASSIUM (BEAKER) (test 2.8 meq/L 3.5-5.1 bnwi=753) CHLORIDE (BEAKER) (test 95 meq/L 98-107 cupy=999) CO2 (BEAKER) (test 35 meq/L 22-29 zqnt=358) BLOOD UREA NITROGEN 49 mg/dL 7-21 (BEAKER) (test nzbu=606) CREATININE (BEAKER) (test 5.61 mg/dL 0.57-1.25 hdxb=014) GLUCOSE RANDOM (BEAKER) 138 mg/dL 70-105 (test pdjv=688) CALCIUM (BEAKER) (test 8.2 mg/dL 8.4-10.2 ikud=723) EGFR (BEAKER) (test mL/min/1.73 sq m INSUFFICIENT CLINICAL DATA zage=8407) TO CALCULATE ESTIMATED GFR. Specimen slightly [id number] 05:52:00 Test Item Value Reference Range Comments PHOSPHORUS (BEAKER) (test fmkm=885) 5.7 mg/dL 2.3-4.7 HEPATIC FUNCTION [id number] 05:52:00 Test Item Value Reference Range Comments TOTAL PROTEIN (BEAKER) (test rnqz=939) 5.2 gm/dL 6.0-8.3 ALBUMIN (BEAKER) (test zevo=5426) 2.3 g/dL 3.5-5.0 BILIRUBIN TOTAL (BEAKER) (test tpvo=392) 3.5 mg/dL 0.2-1.2 BILIRUBIN DIRECT (BEAKER) (test jwfa=083) 2.6 mg/dL 0.1-0.5 ALKALINE PHOSPHATASE (BEAKER) (test qril=535) 81 U/L 40-150 AST (SGOT) (BEAKER) (test qlim=761) 2190 U/L 5-34 ALT (SGPT) (BEAKER) (test cnsk=030) 1782 U/L 6-55 Specimen slightly ictericCREATINE KINASE (CK), TOTAL AND [id number] 05:52:00 Test Item Value Reference Range Comments CREATINE KINASE TOTAL (BEAKER) (test utdw=497) 341 U/L 29-200 CREATINE KINASE-MB (BEAKER) (test rizj=231) 5.4 ng/mL 0.0-6.6 CREATINE KINASE-MB INDEX (BEAKER) (test sdos=727) 1.6 % Effective 05/08/2014: CK-MB Reference Range ChangeNew: 0.0-6.6 Previous: 0.0- 4.9CK-MB Reference Range:<6.7 Normal6.7-10.0 Borderline>10.0 AbnormalCBC W/PLT COUNT & AUTO [id number] 05:48:00 Test Item Value Reference Range Comments WHITE BLOOD CELL COUNT (BEAKER) (test rnqd=930) 4.1 K/ L 4.0-10.0 RED BLOOD CELL COUNT (BEAKER) (test wkkx=318) 3.29 M/ L 4.00-5.00 HEMOGLOBIN (BEAKER) (test ktyl=830) 10.0 GM/DL 12.0-15.0 HEMATOCRIT (BEAKER) (test evcw=129) 30.7 % 36.0-45.0 MEAN CORPUSCULAR VOLUME (BEAKER) (test cnpo=694) 93.5 fL 82.0-99.0 MEAN CORPUSCULAR HEMOGLOBIN (BEAKER) (test 30.5 pg 27.0-33.0 cnuj=992) MEAN CORPUSCULAR HEMOGLOBIN CONC (BEAKER) (test 32.6 GM/DL 32.0-36.0 pjhf=429) RED CELL DISTRIBUTION WIDTH (BEAKER) (test 15.0 % 10.3-14.2 spcc=468) PLATELET COUNT (BEAKER) (test tleu=940) 106 K/CU MM 150-430 MEAN PLATELET VOLUME (BEAKER) (test xdcp=319) 9.6 fL 6.5-10.5 NUCLEATED RED BLOOD CELLS (BEAKER) (test 0 /100 WBC 0-0 dytq=113) NEUTROPHILS RELATIVE PERCENT (BEAKER) (test 66 % lazq=274) LYMPHOCYTES RELATIVE PERCENT (BEAKER) (test 24 % wtbw=045) MONOCYTES RELATIVE PERCENT (BEAKER) (test 6 % vacw=173) EOSINOPHILS RELATIVE PERCENT (BEAKER) (test 3 % uzfs=302) BASOPHILS RELATIVE PERCENT (BEAKER) (test 0 % uosz=234) NEUTROPHILS ABSOLUTE COUNT (BEAKER) (test 2.74 K/ L 1.80-8.00 limv=023) LYMPHOCYTES ABSOLUTE COUNT (BEAKER) (test 1.00 K/ L 1.48-4.50 ndds=718) MONOCYTES ABSOLUTE COUNT (BEAKER) (test 0.26 K/ L 0.00-1.30 gidv=137) EOSINOPHILS ABSOLUTE COUNT (BEAKER) (test 0.13 K/ L 0.00-0.50 ijla=493) BASOPHILS ABSOLUTE COUNT (BEAKER) (test 0.01 K/ L 0.00-0.20 lhge=127) [id number] 05:09:00 Test Item Value Reference Range Comments FIBRINOGEN LEVEL (BEAKER) (test lkfc=808) 427 mg/dl 225-434 [id number] 05:09:00 Test Item Value Reference Range Comments PARTIAL THROMBOPLASTIN TIME (BEAKER) (test 36.2 seconds 22.5-36.0 svnj=441) PROTHROMBIN TIME/[id number] 05:08:00 Test Item Value Reference Range Comments PROTIME (BEAKER) (test defm=476) 22.8 seconds 11.7-14.7 INR (BEAKER) (test zejo=752) 2.0 <=5.9 RECOMMENDED COUMADIN/WARFARIN INR THERAPY RANGESSTANDARD DOSE: 2.0 - 3.0 Includes: PROPHYLAXIS forvenous thrombosis, systemic embolization; TREATMENT for venous thrombosis and/or pulmonary embolus.HIGH RISK: Target INR is 2.5-3.5 for patients with mechanical heart valves.HEPATITIS PANEL, [id number] 03:40 :00 Test Item Value Reference Range Comments HEPATITIS A IGM ANTIBODY (BEAKER) (test Nonreactive Nonreactive twnf=843) HEPATITIS B CORE IGM ANTIBODY (BEAKER) (test Nonreactive Nonreactive diqp=196) HEPATITIS C ANTIBODY (BEAKER) (test arcg=922) Nonreactive Nonreactive HEPATITIS B SURFACE ANTIGEN (2) (BEAKER) (test Nonreactive Nonreactive ucxi=3708) CREATININE, RANDOM [id number] 03:18:00 Test Item Value Reference Range Comments CREATININE URINE (BEAKER) (test svmo=615) 118.7 mg/dL Reference Range: No NormalsSODIUM, RANDOM [id number] 03:18:00 Test Item Value Reference Range Comments SODIUM URINE (BEAKER) (test bpdy=757) 60 meq/L Reference Range: No NormalsUREA NITROGEN, RANDOM [id number] 03:18:00 Test Item Value Reference Range Comments UREA NITROGEN URINE (BEAKER) (test ikqe=567) 303 mg/dL Reference Range: No [id number] 03:07:00 Test Item Value Reference Range Comments AMMONIA (BEAKER) (test pieb=829) 48 mol/L 18-72 [id number] 02:57:00 Test Item Value Reference Range Comments D-DIMER QUANTITATIVE (BEAKER) (test lwut=357) 18.03 MG/L FEU <0.50 Intended Use: The [...] is within 95-100% range.URINALYSIS W/ REFLEX URINE [id number] 02:53:00 Test Item Value Reference Range Comments COLOR (BEAKER) (test gimj=242) Yellow CLARITY (BEAKER) (test rsha=795) Hazy SPECIFIC GRAVITY UA (BEAKER) (test znva=593) 1.012 1.001-1.035 PH UA (BEAKER) (test pyne=207) 6.5 5.0-8.0 PROTEIN UA (BEAKER) (test ibzv=761) 300 mg/dL Negative GLUCOSE UA (BEAKER) (test amvf=941) Negative Negative KETONES UA (BEAKER) (test lchl=658) Negative Negative BILIRUBIN UA (BEAKER) (test duca=227) Positive Negative BLOOD UA (BEAKER) (test kuqd=062) Moderate Negative NITRITE UA (BEAKER) (test qqtp=807) Negative Negative LEUKOCYTE ESTERASE UA (BEAKER) (test cqjh=720) Large Negative UROBILINOGEN UA (BEAKER) (test wfmg=815) 3.0 mg/dL 0.2-1.0 RBC UA (BEAKER) (test rukg=620) 4 /HPF WBC UA (BEAKER) (test cvoy=250) > /HPF BACTERIA (BEAKER) (test rkqa=475) Occasional MUCUS (BEAKER) (test pjlo=0076) Rare SQUAMOUS EPITHELIAL (BEAKER) (test kzri=180) 19 /HPF HYALINE CASTS (BEAKER) (test ipce=342) 13 /LPF SOURCE(BEAKER) (test mzoo=4665) [id number] 02:49:00 Test Item Value Reference Range Comments PARTIAL THROMBOPLASTIN TIME (BEAKER) (test 39.4 seconds 22.5-36.0 kxmb=596) PROTHROMBIN TIME/[id number] 02:48:00 Test Item Value Reference Range Comments PROTIME (BEAKER) (test rajn=629) 22.0 seconds 11.7-14.7 INR (BEAKER) (test roud=845) 1.9 <=5.9 RECOMMENDED COUMADIN/WARFARIN INR THERAPY RANGESSTANDARD DOSE: 2.0 - 3.0 Includes: PROPHYLAXIS forvenous thrombosis, systemic embolization; TREATMENT for venous thrombosis and/or pulmonary embolus.HIGH RISK: Target INR is 2.5-3.5 for patients with mechanical heart valves.[id number] 02:48:00 Test Item Value Reference Range Comments FIBRINOGEN LEVEL (BEAKER) (test eoma=169) 421 mg/dl 225-434 BLOOD GAS, [id number] 02:43:00 Test Item Value Reference Range Comments PH VENOUS (BEAKER) (test gszx=575) 7.46 7.32-7.42 PCO2 VENOUS (BEAKER) (test prru=639) 53 mmHg 41-51 PO2 VENOUS (BEAKER) (test wuoo=520) 83 mmHg 25-40 O2 SATURATION VENOUS (BEAKER) (test fivx=788) 96.5 % 40.0-70.0 HCO3 VENOUS (BEAKER) (test cqqq=094) 37 mmol/L 21-29 BASE EXCESS VENOUS (BEAKER) (test mlaf=274) 11.7 mmol/L -2.0-3.0 PATIENT TEMPERATURE (BEAKER) (test ynov=8472) 37.0 C FIO2 (BEAKER) (test tpxd=0835) 21.0 % CBC W/PLT COUNT & AUTO [id number] 02:43:00 Test Item Value Reference Range Comments WHITE BLOOD CELL COUNT (BEAKER) (test vysl=138) 4.4 K/ L 4.0-10.0 RED BLOOD CELL COUNT (BEAKER) (test ogxa=669) 3.13 M/ L 4.00-5.00 HEMOGLOBIN (BEAKER) (test ezry=883) 9.8 GM/DL 12.0-15.0 HEMATOCRIT (BEAKER) (test nfbz=593) 29.0 % 36.0-45.0 MEAN CORPUSCULAR VOLUME (BEAKER) (test shcb=033) 92.9 fL 82.0-99.0 MEAN CORPUSCULAR HEMOGLOBIN (BEAKER) (test 31.3 pg 27.0-33.0 lagx=377) MEAN CORPUSCULAR HEMOGLOBIN CONC (BEAKER) (test 33.6 GM/DL 32.0-36.0 wtrr=715) RED CELL DISTRIBUTION WIDTH (BEAKER) (test 15.3 % 10.3-14.2 pzdb=569) PLATELET COUNT (BEAKER) (test tdko=359) 113 K/CU MM 150-430 MEAN PLATELET VOLUME (BEAKER) (test oiil=398) 9.8 fL 6.5-10.5 NUCLEATED RED BLOOD CELLS (BEAKER) (test 0 /100 WBC 0-0 serg=575) NEUTROPHILS RELATIVE PERCENT (BEAKER) (test 61 % hlih=053) LYMPHOCYTES RELATIVE PERCENT (BEAKER) (test 23 % qtgj=744) MONOCYTES RELATIVE PERCENT (BEAKER) (test 11 % qeek=609) EOSINOPHILS RELATIVE PERCENT (BEAKER) (test 4 % ejri=447) BASOPHILS RELATIVE PERCENT (BEAKER) (test 1 % rspb=876) NEUTROPHILS ABSOLUTE COUNT (BEAKER) (test 2.65 K/ L 1.80-8.00 bfzx=567) LYMPHOCYTES ABSOLUTE COUNT (BEAKER) (test 1.01 K/ L 1.48-4.50 uwmp=745) MONOCYTES ABSOLUTE COUNT (BEAKER) (test 0.48 K/ L 0.00-1.30 ceoc=111) EOSINOPHILS ABSOLUTE COUNT (BEAKER) (test 0.19 K/ L 0.00-0.50 wjcu=666) BASOPHILS ABSOLUTE COUNT (BEAKER) (test 0.05 K/ L 0.00-0.20 wvbk=571) 0.00LACTIC ACID, VENOUS, WHOLE [id number] 02:35:00 Test Item Value Reference Range Comments LACTATE BLOOD VENOUS (2) (BEAKER) (test 0.8 mmol/L 0.5-2.2 tnvt=9385) Effective 10/23/2015: Units/Reference Range ChangeNew: 0.5-2.2 mmol/L Previous: 5 -20 mg/dLSpecimen slightly icteric
[2017-10-07] MEDS ORDERED: NA CHLORIDE 0.9% 250 ML ONE ×2 (08:36→11:59)
[2017-10-07 09:34] VITALS: O2SAT 94; BMI 29.7
[2017-10-07 17:08] LABS: Hematocrit 27.8 % (36.0-45.0)
[2017-10-07 18:41] VITALS: BP 171/81; TEMP 98.1
== END 2017-10-07 17:05 | disposition home or self-care (01) ==
LOC: DS 07:48
PROVIDERS: ATTEND Internal Medicine Medical Oncology
DX: N18.9 Chronic kidney disease, unspecified (principal); D63.1 Anemia in chronic kidney disease
CPT/HCPCS: 36415; 36430; 85014; 85018; 86850; 86900; 86901; P9016 ×2

== ENCOUNTER 2018-06-18 11:16 | Emergency (ER) | payer OTHER ==
--- OUTSIDE RECORDS SUMMARY | 2018-06-18 11:19 | XMS REPORT | Clinical Summary ---
:1980 Author Organization [facility] Address [address] [place] [address] Care Team Providers Name Role Phone Sharpless Primary Care Provider Allergies Active Allergy Reactions Severity Noted Date Comments Zolpidem Other (See Comments) 01/03/2017 confusion Lisinopril Other (See Comments) 01/03/2017 Unable to remember Nitrofurantoin Anaphylaxis High 01/03/2017 Liver failure Monohyd/M-Cryst Penicillins Shortness Of Breath High 01/03/2017 Guaifenesin Other (See Comments) 01/03/2017 numbness Medications Medication Sig Dispensed Refills Start End Date Status Date divalproex (DEPAKOTE) Take 500 mg by 0 Active 500 MG EC mouth daily. tabletIndications: Depression associated with Bipolar Disorder ondansetron (ZOFRAN) 4 Take 4 mg by mouth 0 Active MG tablet every 6 (six) hours as needed for Nausea. traMADol (ULTRAM) 50 mg Take 50 mg by mouth 0 Active tablet every 6 (six) hours as needed for Pain. pantoprazole (PROTONIX) Take 40 mg by mouth 0 Active 40 MG tablet daily. amLODIPine (NORVASC) 5 Take 10 mg by mouth 0 Active MG tablet daily. hydrALAZINE Take 100 mg by 0 Active (APRESOLINE) 100 MG mouth 3 (three) tablet times daily. magnesium oxide Take 400 mg by 0 Active (MAG-OX) 400 mg tablet mouth daily. metoclopramide HCl Take 10 mg by mouth 0 Active (REGLAN) 10 MG tablet 3 (three) times daily. meclizine (ANTIVERT) 25 Take 12.5 mg by 0 Active MG tablet mouth 3 (three) times daily as needed. sertraline (ZOLOFT) 100 Take by mouth 0 Active MG tabletIndications: daily. Anxiety with Depression medroxyPROGESTERone Inject 0 Active (DEPO-PROVERA) 150 intramuscularly mg/mL injection every 3 (three) months. insulin glargine Inject 5 Units 10 mL 0 Active (LANTUS) 100 unit/mL subcutaneously 7 injection every morning Use as directed . metoprolol (LOPRESSOR) Take 1 tablet (50 0 01/08/20 50 MG tablet mg total) by mouth 7 18 2 (two) times daily. Active Problems Problem Noted Date Liver failure, acute 01/03/2017 SANJUANA (acute kidney injury) 01/03/2017 CKD (chronic kidney disease) 01/03/2017 Acute encephalopathy 01/03/2017 Ulcer of toe of left foot 01/03/2017 Peripheral neuropathy 01/03/2017 Hyperglycemia due to type 2 diabetes mellitus 01/03/2017 Gastroparesis due to DM 01/03/2017 Cyclic vomiting syndrome 01/03/2017 Anxiety 01/03/2017 Bipolar disorder 01/03/2017 Hypertensive emergency 01/03/2017 Encounters Date Type Specialty Care Team Description 04/05/2018 Macario Byrd 04/05/2018 Abstract Macario Mccloud 03/08/2018 Abstract Macario Mccloud 03/08/2018 Abstract Macario Mccloud 01/13/2018 Telephone Macario Mccloud Kidney Transplant Pre- evaluation 01/10/2018 Orders Only Transplant Shiela Garces RN ESRD (end stage renal disease) (HCC) (Primary Dx); Pre-transplant evaluation for end stage renal disease; Maturity onset diabetes mellitus in young (HCC); Essential hypertension, malignant; Anemia of chronic renal failure, unspecified CKD stage; Abnormal blood chemistry; Pre-operative cardiovascular examination; Pure hypercholesterolemia; Atherosclerosis of [place] coronary artery of [place] heart without angina pectoris; Impending cerebrovascular accident (HCC) 01/07/2018 Macario Byrd 12/17/2017 Abstract Macario Mccloud 12/17/2017 Abstract Macario Mccloud after 06/17/2017 Social History Tobacco Use Types Packs/Day Years Used Date Former Smoker 0.5 20 Quit: 12/04/2016 Tobacco Cessation: Counseling Given: Yes Comments: patient stated she stopped 1 month ago. Alcohol Use Drinks/Week oz/Week Comments No Sex Assigned at Date Recorded Not on file Job Start Date Occupation Industry Not on file Not on file Not on file Travel History Travel Start Travel End No recent travel history available. Last Filed Vital Signs Vital Sign Reading Time Taken Blood Pressure - - Pulse - - Temperature - - Respiratory Rate - - Oxygen Saturation - - Inhaled Oxygen Concentration - - Weight 70.3 kg (155 lb) 03/08/2018 10:25 AM CDT Height 160 cm (5' 3") 03/08/2018 10:25 AM CDT Body Mass Index 27.46 03/08/2018 10:25 AM CDT Plan of Treatment Health Maintenance Due Date Last Done Comments INFLUENZA VACCINE 03/21/2018 Results Not on fileafter 06/17/2017 Insurance Payer Benefit Plan / Group Subscriber ID Type Phone Address MEDICARE MEDICARE A B xxxxxxxxxx Medicare MEDICAID MEDICAID [place] xxxxxxxxx Medicaid Advance Directives For more information, please contact:[address] [phone] Code Status Date Activated Date Inactivated Comments Full Code 01/03/2017 1:56 AM 01/07/2017 5:21 PM This code status was determined by: Patient
--- OUTSIDE RECORDS SUMMARY | 2018-06-18 11:40 | XMS REPORT | Continuity of Care Document ---
:1980 Author Organization Interface Problems Problem Status Onset Classification Date Comments Source Date Reported ACUTE RESP Active 07/23/19 [facility] FAILURE [address] [place] [address] CONGESTION AMD Active 07/23/19 [facility] DIARRHEA [address] [place] [address] Center CHF/RENAL DISEASE Active 06/10/[address] Center SOB/SWELLING Active 06/10/20 [place] [id number] Medical Center Discharge 06/26/19 06/28/2014 [facility] Diagnosis: [facility] Gastroparesis Center ABDOMINAL PAIN, Active 06/26/19 [facility] SEIZURES 14 [facility] ABD PAIN Active 04/14/[address] GASTROPERISIS Active 08/02/[address] ABDOMINAL PAIN Active 03/14/[address] NAUSEA, VOMITING Active 03/14/[address] Nausea and Resolved 11/29/19 Problem 08/02/2016 [facility] vomiting [address] [place] [address] VOMITTING Active 11/28/[address] N/V INABILITY TO Active 11/28/19 [facility] TOLERATE PO [address] [place] [address] VOMITTING, HIGH Active 09/18/19 [facility] BLOOD SUGAR [address] [place] [address] MRSA<sup>1, Active 09/01/19 Problem 03/16/2012 2Problem </sup><sup>2</sup 12 added by [facility] Marie [facility] Expert. [facility] MRSA<sup>1, Active 09/01/19 Problem 08/02/2016 Problem MH 2</sup> 12 added by [facility] Nathan [facility] Expert. Medical Center ELBOW Active 08/31/19 [facility] ABSCESS/HYPERGLYC [address] [place] [address] VOMITING, BLOOD Active 08/31/19 [facility] SUGAR READINGS [address] [place] [address] Hypokalemia Active 08/23/19 [facility]/23[facility]19 Problem 08/02/[facility]es[facility] Resolved 08/23/19 Problem 08/02/[address] Hyperglycemia Inactive 08/20/19 Problem 03/16/[address] Hyperglycemia Resolved 08/20/19 Problem 08/02/[address] DKA Resolved 08/19/19 Problem 04/22/[address] DKA (<span Resolved 08/19/19 Problem 08/02/2016 [place] ID="[id number]">[facility] Medical onfirmed</span>) Center DKA Active 08/19/[address] VOMITING Active 08/19/[address] Hypoglycemia Inactive Problem 04/22/2013 [facility] Hypomagnesemia Active Problem 04/22/2013 [facility] Hypertension Active Problem 03/16/2012 [facility] Hypoglycemia Inactive Problem 03/16/2012 [facility] Nausea and Active Problem 03/16/2012 [facility] DM (<span Resolved Problem 08/02/2016 [place] ID="[id number]"> Medical Confirmed</span>) [place] Gastroparesis Resolved Problem 08/02/2016 [facility] Hypertension Resolved Problem 08/02/2016 [facility] Psychiatric Resolved Problem 08/02/2016 [facility] behavioral Medical disability Center Seizures Resolved Problem 08/02/2016 [facility] Final: Acute 08/02/2016 [facility] respiratory Medical failure, [place] unspecified whether with hypoxia or hypercapnia DMI KETOACD Active [facility] UNCONTROLD [facility] OTHER GENERAL Active [facility] SYMPTOMS Medical Center HEART FAILURE, Active [facility] UNSPECIFIED Medical Center ACUTE RESPIRATORY Active [facility] FAILURE, UNSP W Medical HYPOXI Center Medications Medication Details Route Status Patient Ordering Order Source Instructions Provider Date Furosemide 40 MG 40 mg=1 tab, Active [place] Oral Tablet PO, Daily, # 2017 Medical 30 tab, 0 Center Refill(s), Pharmacy: [facility] [id number] Bumex 0.5 mg, No Longer [place] Route: PO, Active 2016 Medical Drug form: Center TAB, Daily, Dosing Weight 92.273, kg, Start date: 07/30/16 9:00:00 [employer], Duration: 30 day, Stop date: 08/28/16 9:00:00 [employer] Lasix 40 mg, 1 tab, No Longer [place] Route: PO, Active 2017 Medical Drug form: Center TAB, Daily, Dosing Weight 92.273, kg, Priority: NOW, Start date: 07/29/16 14:05:00 [employer], Duration: 30 day, Stop date: 08/28/16 9:00:00 CSTNotes: (Same as: Lasix) May cause GI upset. Give with food or milk. Hydralazine 10 mg, 0.5 No Longer [place] mL, Route: Active 2016 Medical IVP, Drug Center form: INJ, Q6H, Dosing Weight 92.273, kg, PRN Elevated BP, Start date: 07/29/16 0:05:00 [employer], Duration: 30 day, Stop date: 08/28/16 0:04:00 CSTNotes: (Same as: Apresoline) Push over 5 minutes sodium chloride 1,000 mL, No Longer [place] 0.9% 1000 ml INJ Rate: 125 Active 2017 Medical 1,000 mL ml/hr, Infuse Center over: 8 hr, Route: IV, Dosing Weight 92.273 kg, Total Volume: 1,000, Start date: 07/26/16 12:26:00 [employer], Duration: 30 day, Stop date: 08/25/16 12:25:00 [employer] Sodium Chloride 500 mL, 500 Inactive [place] 0.154 MEQ/ML ml/hr, Infuse 2017 Medical Injectable Over: 1 hr, Center Solution Route: IV, 500, Drug form: INJ, ONCE, Priority: STAT, Dosing Weight 92.273 kg, Start date: 07/26/16 7:30:00 [employer], Duration: 1 doses or times, Stop date: 07/26/16 7:30:00 [employer] Insulin regular 8 unit, 0.08 Inactive [place] mL, Route: 2017 Medical SUB-Q, Drug Center form: SOLN, ONCE, Dosing Weight 92.273, kg, Priority: NOW, Start date: 07/25/16 2:39:00 [employer], Stop date: 07/25/16 2:39:00 CSTNotes: (Same as: Humulin R) Roll in palms of hands gently; Do not shake vigorously. "single patient use only" (Restricted to patients requiring a dose > 60 units) WASTE: F/P - Black; E - Municipal Trash Bin Stable for 28 days at room temperature Expires in days from _Date Insulin, Aspart, 10 unit, 0.1 Inactive [facility] Human mL, Route: 2016 [facility], Drug Center form: SOLN, ONCE, Dosing Weight 92.273, kg, Start date: 07/25/16 1:31:00 [employer], Stop date: 07/25/16 1:31:00 CSTNotes: Roll in palms of hands gently; Do not shake vigorously. (Same as: NovoLOG) "single patient use only" WASTE: F/P - Black; E - Municipal Trash Bin Stable for 28 days at room temperature. Expires in days from _Date Insulin, Aspart, 5 unit, 0.05 Inactive [facility] Human mL, Route: 2016 [facility], Drug Center form: SOLN, ONCE, Dosing Weight 92.273, kg, Priority: NOW, Start date: 07/24/16 23:42:00 [employer], Stop date: 07/24/16 23:42:00 CSTNotes: Roll in palms of hands gently; Do not shake vigorously. (Same as: NovoLOG) "single patient use only" WASTE: F/P - Black; E - Municipal Trash Bin Stable for 28 days at room temperature. Expires in days from _Date Insulin, Aspart, 5 unit, 0.05 Inactive [facility] Human mL, Route: 2016 [facility], Drug Center form: SOLN, ONCE, Dosing Weight 92.273, kg, Start date: 07/24/16 21:28:00 [employer], Stop date: 07/24/16 21:28:00 CSTNotes: Roll in palms of hands gently; Do not shake vigorously. (Same as: NovoLOG) "single patient use only" WASTE: F/P - Black; E - Municipal Trash Bin Stable for 28 days at room temperature. Expires in days from _Date atorvastatin 40 mg, 1 tab, No Longer [place] Route: PO, Active 2016 Medical Drug form: Center TAB, Bedtime, Dosing Weight 92.273, kg, Start date: 07/24/16 21:00:00 [employer], Duration: 30 day, Stop date: 08/22/16 21:00:00 CSTNotes: (Same as: Lipitor) divalproex sodium 1,000 mg, 2 No Longer [place] tab, Route: Active 2016 Medical PO, Drug Center form: ERTAB, Bedtime, Start date: 07/24/16 21:00:00 [employer], Duration: 30 day, Stop date: 08/22/16 21:00:00 CSTNotes: (Same as: Depakote ER) Once daily dosing; indicated for migraines. Divalproex sodium extended-rele ase tab. Do not chew or crush. "Do Not Crush" Lasix 40 mg, 4 mL, No Longer [place] Route: IVP, Active 2016 Medical Drug form: Center INJ, Q8H, Dosing Weight 92.273, kg, Start date: 07/24/16 16:00:00 [employer], Duration: 30 day, Stop date: 08/23/16 8:00:00 CSTNotes: (Same as: Lasix) MEDICATION WASTE Product Size: 40 mg Product Wasted: ___ mg Tylenol 650 mg, 20.3 No Longer [place] mL, Route: Active 2016 Medical PO, Drug Center form: LIQ, Q4H, Dosing Weight 92.273, kg, PRN Pain 1-3/Temp > 100.4 F, Start date: 07/24/16 15:52:00 [employer], Duration: 30 day, Stop date: 08/23/16 15:51:00 CSTNotes: Max acetaminophen =4000mg/day (4 gm/day). (Same as: Tylenol) Bupropion 150 mg, 1 No Longer [place] tab, Route: Active 2016 Medical PO, Drug Center form: ERTAB, Daily, Dosing Weight 92.273, kg, Start date: 07/24/16 9:00:00 [employer], Duration: 30 day, Stop date: 08/22/16 9:00:00 [employer] 24 HR Divalproex 500 mg, 1 No Longer [place] Sodium 500 MG tab, Route: Active 2017 Medical Extended Release PO, Drug [place] Tablet [Depakote] form: ERTAB, QAM, Dosing Weight 92.273, kg, Start date: 07/24/16 9:00:00 [employer], Duration: 30 day, Stop date: 08/22/16 9:00:00 CSTNotes: (Same as: Depakote ER) gabapentin 300 MG 300 mg, 1 No Longer [facility] Oral Capsule cap, Route: Active 2017 Medical PO, Drug Center form: CAP, BID, Dosing Weight 92.273, kg, Start date: 07/24/16 9:00:00 [employer], Duration: 30 day, Stop date: 08/22/16 17:00:00 CSTNotes: (Same as: Neurontin) Aspirin 81 MG 81 mg, 1 tab, No Longer [place] Chewable Tablet Route: PO, Active 2016 Medical Drug form: [place] CHEWTAB, Daily, Dosing Weight 92.273, kg, Start date: 07/24/16 9:00:00 [employer], Duration: 30 day, Stop date: 08/22/16 9:00:00 CSTNotes: Take with food. Lasix 40 mg, 4 mL, Inactive [place] Route: IVP, 2016 Medical Drug form: [place] INJ, Q12H, Dosing Weight 92.273, kg, Start date: 07/24/16 9:00:00 [employer], Duration: 30 day, Stop date: 08/22/16 21:00:00 CSTNotes: (Same as: Lasix) MEDICATION WASTE Product Size: 40 mg Product Wasted: ___ mg Zoloft 200 mg, 2 No Longer [place] tab, Route: Active 2017 Medical PO, Drug Center form: TAB, Daily, Dosing Weight 92.273, kg, Start date: 07/24/16 9:00:00 [employer], Duration: 30 day, Stop date: 08/28/16 9:00:00 CSTNotes: (Same as: Zoloft) Protonix 40 mg, 1 tab, No Longer [facility] Route: PO, Active 2016 Medical Drug form: [place] ECTAB, Daily, Dosing Weight 92.273, kg, Start date: 07/24/16 9:00:00 [employer], Duration: 30 day, Stop date: 08/22/16 9:00:00 CSTNotes: Tablet should not be chewed or crushed. (Same as: Protonix) metoprolol 100 mg, 2 No Longer [place] extended release tab, Route: Active 2017 Medical PO, Drug Center form: ERTAB, Daily, Start date: 07/24/16 9:00:00 [employer], Duration: 30 day, Stop date: 08/22/16 9:00:00 [employer] Insulin Glargine 40 unit, 0.4 No Longer [place] 100 UNT/ML mL, Route: Active 2016 [facility] Injectable SUB-Q, Drug Center Solution [Lantus] form: SOLN, Daily, Dosing Weight 92.273, kg, Start date: 07/24/16 9:00:00 [employer], Duration: 30 day, Stop date: 08/22/16 9:00:00 CSTNotes: Same as: Lantus) Do not hold insulin without contacting prescriber WASTE: F/P - Black; E - Municipal Trash Bin Hydralazine 100 mg, 2 No Longer [place] Hydrochloride 100 tab, Route: Active 2017 Medical MG Oral Tablet PO, Drug Center form: TAB, BID, Dosing Weight 92.273, kg, Start date: 07/24/16 9:00:00 [employer], Duration: 30 day, Stop date: 08/22/16 17:00:00 CSTNotes: (Same as: Apresoline) May interfere w/enteral feedings Take With Food Ondansetron 4 mg, 2 mL, Inactive [place] Route: IVP2016 Medical Drug form: [place] INJ, ONCE, Dosing Weight 92.273, kg, Priority: STAT, Start date: 07/24/16 8:50:00 [employer], Stop date: 07/24/16 8:50:00 CSTNotes: (Same as: Zofran) MEDICATION WASTE Product Size: 4 mg Product Wasted: ___ mg Morphine 4 mg, 1 mL, Inactive [place] Route: IVP2016 Medical Drug form: [place] SOLN, ONCE, Dosing Weight 92.273, kg, Priority: STAT, Start date: 07/24/16 8:50:00 [employer], Stop date: 07/24/16 8:50:00 CSTNotes: (Same as:MORPhine Sulfate) Insulin, Aspart, 2 unit, 0.02 No Longer [place] Human mL, Route: Active 2016 Medical SUB-Q, Drug Center form: SOLN, TID-Before Meals, Dosing Weight 92.273, kg, Start date: 07/24/16 7:30:00 [employer], Duration: 30 day, Stop date: 08/22/16 16:30:00 CSTNotes: Roll in palms of hands gently; Do not shake vigorously. (Same as: NovoLOG) "single patient use only" WASTE: F/P - Black; E - Municipal Trash Bin Stable for 28 days at room temperature. Expires in days from _Date Dilaudid 0.5 mg, 0.25 Inactive [place] mL, Route: 2016 Medical IVP, Drug Center form: INJ, ONCE, Dosing Weight 92.273, kg, Priority: STAT, Start date: 07/24/16 5:28:00 [employer], Stop date: 07/24/16 5:28:00 CSTNotes: Same as Dilaudid Insulin, Aspart, 4 unit, 0.04 No Longer [place] Human mL, Route: Active 2016 Medical SUB-Q, Drug Center form: SOLN, TID-Before Meals, Dosing Weight 92.273, kg, PRN Blood Glucose Results, Start date: 07/24/16 2:40:00 [employer], Duration: 30 day, Stop date: 08/23/16 2:39:00 CSTNotes: Roll in palms of hands gently; Do not shake vigorously. (Same as: NovoLOG) "single patient use only" WASTE: F/P - Black; E - Municipal Trash Bin Stable for 28 days at room temperature. Expires in days from _Date Glucagon 1 mg, Route: No Longer [place] IM, Drug Active 2016 Medical form: Center PDR/INJ, PRN, Dosing Weight 92.273, kg, PRN Blood Glucose Results, Start date: 07/24/16 2:40:00 [employer], Duration: 30 day, Stop date: 08/23/16 2:39:00 [employer] Dextrose 50% 25 gm, 50 mL, No Longer [facility] Syringe Route: IVP, Active 2016 Medical Drug Form: Center INJ, Dosing Weight 92.273, kg, PRN, PRN Blood Glucose Results, Start date: 07/24/16 2:40:00 [employer], Duration: 30 day, Stop date: 08/23/16 2:39:00 [employer] Docusate 100 mg, 1 No Longer [facility] cap, Route: Active 2016 Medical PO, Drug Center form: CAP, BID, Dosing Weight 92.273, kg, PRN Constipation, Start date: 07/24/16 1:20:00 [employer], Duration: 30 day, Stop date: 08/23/16 1:19:00 CSTNotes: (Same as: Colace) (Do Not Crush) Ondansetron 4 mg, 2 mL, No Longer [facility] Route: IVP, Active 2016 Medical Drug form: Center INJ, Q6H, Dosing Weight 92.273, kg, PRN Nausea & Vomiting, Start date: 07/24/16 1:20:00 [employer], Duration: 30 day, Stop date: 08/23/16 1:19:00 CSTNotes: (Same as: Zofran) MEDICATION WASTE Product Size: 4 mg Product Wasted: ___ mg Lasix 40 mg, 4 mL, Inactive [facility] Route: IVP, 2016 Medical Drug form: Center INJ, ONCE, Dosing Weight 92.273, kg, Priority: STAT, Start date: 07/24/16 0:01:00 [employer], Stop date: 07/24/16 0:01:00 CSTNotes: (Same as: Lasix) MEDICATION WASTE Product Size: 40 mg Product Wasted: ___ mg Aspirin 324 mg, 4 No Longer [facility] tab, Route: Active 2016 Medical CHEW, Drug Center form: CHEWTAB, ONCE, Dosing Weight 92.273, kg, Priority: STAT, Start date: 07/23/16 23:48:00 [employer], Stop date: 07/23/16 23:48:00 CSTNotes: Take with food. Prednisone 40 mg, 2 tab, Inactive [place] Route: PO, 2017 Medical Drug form: Center TAB, ONCE, Dosing Weight 92.273, kg, Priority: STAT, Start date: 07/23/16 23:02:00 [employer], Stop date: 07/23/16 23:02:00 CSTNotes: Take with food. Albuterol 0.833 3 ml, Route: No Longer [place] MG/ML / NEB, Drug Active 2016 Medical Ipratropium Form: SOLN, Center Golf 0.167 Dosing Weight MG/ML Inhalant 92.273, kg, Solution [DuoNeb] PRN, PRN Respiratory Protocol, Start date: 07/23/16 22:09:00 [employer], Duration: 30 day, Stop date: 08/22/16 22:08:00 CSTNotes: (Same as: Duoneb) Furosemide 40 MG 80 mg=2 tab, Active [place] Oral Tablet PO, BID, # 2016 Medical 120 tab, 0 Center Refill(s) atorvastatin 40 40 mg=1 tab, Active [place] mg oral tablet PO, Bedtime, 2016 Medical # 30 tab, 0 Center Refill(s) Insulin Glargine 40 unit, Active [place] 100 UNT/ML SUB-Q, Daily, 2016 Medical Injectable # 10 mL, 0 Center Solution [Lantus] Refill(s) metoprolol 100 mg 100 mg=1 tab, Active [place] oral tablet, PO, Daily, # 2016 Medical extended release 30 tab, 0 Center Refill(s) Hydralazine 100 mg=1 tab, Active [place] Hydrochloride 100 PO, BID, # 60 2016 Medical MG Oral Tablet tab, 0 Center Refill(s) 200 ACTUAT 2 puff, Active [facility] Albuterol 0.09 INHALATION, 2016 Medical MG/ACTUAT Metered PRN, PRN as Center Dose Inhaler needed for wheezing, use as needed for shortness of breath or wheezing, # 8 gm, 0 Refill(s) Aspirin 81 MG 81 mg=1 tab, Active [place] Chewable Tablet PO, Daily, # 2016 Medical 30 tab, 0 Center Refill(s) Hydroxyzine 50 mg=1 cap, Active [place] Hydrochloride 50 PO, TID, X 30 2015 Medical MG Oral Capsule day, # 90 Center cap, 0 Refill(s) losartan 25 mg 25 mg=1 tab, Active [facility] oral tablet PO, Daily, # 2016 Medical 30 tab, 0 Center Refill(s) Lasix 80 mg, 2 tab, Inactive [facility] Route: PO, 2015 Medical Drug form: [place] TAB, BID, Dosing Weight 103.182, kg, Start date: 06/15/16 9:00:00 [employer], Duration: 30 day, Stop date: 07/14/16 17:00:00 CSTNotes: (Same as: Lasix) May cause GI upset. Give with food or milk. Magnesium Oxide 400 mg, 1 Inactive [facility] tab, Route: 2015 Medical PO, Drug Center form: TAB, ONCE, Dosing Weight 103.182, kg, Start date: 06/13/16 7:36:00 [employer], Stop date: 06/13/16 7:36:00 CSTNotes: (Same as: Mag-Ox 400) Magnesium oxide 270ad=035mh elemental magnesium Dose=____mg magnesium oxide (___mg elemental magnesium) Magnesium Oxide 800 mg, 2 Inactive [facility] tab, Route: 2015 Medical PO, Drug Center form: TAB, ONCE, Dosing Weight 103.182, kg, Start date: 06/13/16 3:47:00 [employer], Stop date: 06/13/16 3:47:00 CSTNotes: (Same as: Mag-Ox 400) Magnesium oxide [id number] elemental magnesium Dose=____mg magnesium oxide (___mg elemental magnesium) 24 HR Nifedipine 30 mg, 1 tab, Inactive [facility] 30 MG Extended Route: PO, 2016 Medical Release Tablet Drug form: [place] [Procardia] ERTAB, ONCE, Dosing Weight 103.182, kg, Priority: NOW, Start date: 06/12/16 22:33:00 [employer], Stop date: 06/12/16 22:33:00 CSTNotes: (Same as: Adalat CC, Procardia XL) Give on empty stomach. Take 1 hour before or 2 hours after meal; "Avoid grapefruit and grapefruit juice". Do not crush hydrALAZINE 50 mg 100 mg, 2 No Longer 12/24/ MH [place] oral tablet tab, Route: Active 2015 Medical PO, Drug Center form: TAB, TID, Dosing Weight 86.364, kg, Priority: NOW, Start date: 06/12/16 19:08:00 [employer], Duration: 30 day, Stop date: 07/12/16 17:00:00 CSTNotes: (Same as: Apresoline) May interfere w/enteral feedings Take With Food Wellbutrin XL 150 mg, 1 No Longer [place] tab, Route: Active 2015 Medical PO, Drug Center form: ERTAB, Daily, Start date: 06/12/16 18:00:00 [employer], Duration: 30 day, Stop date: 07/12/16 9:00:00 CSTNotes: (Same as: Wellbutrin XL) "Do Not Crush" Norvasc 10 mg, 1 tab, Inactive [place] Route: PO, 2015 Medical Drug form: Center TAB, Daily, Start date: 06/12/16 18:00:00 [employer], Duration: 30 day, Stop date: 07/12/16 9:00:00 CSTNotes: (Same as: Norvasc) Insulin Glargine 30 unit, 0.3 No Longer [place] 100 UNT/ML mL, Route: Active 2015 Medical Injectable SUB-Q, Drug Center Solution [Lantus] form: SOLN, Daily, Dosing Weight 86.364, kg, Start date: 06/12/16 10:00:00 [employer], Duration: 30 day, Stop date: 07/11/16 10:00:00 CSTNotes: Same as: Lantus) Do not hold insulin without contacting prescriber WASTE: F/P - Black; E - Municipal Trash Bin 1 ML paliperidone IM, qMonth, 0 Active [place] palmitate 156 Refill(s) 2015 Medical MG/ML Prefilled Center Syringe [Invega] amLODIPine 10 mg 10 mg=1 tab, No Longer [place] oral tablet PO, Daily, 0 Active 2015 Medical Refill(s) Center pravastatin 40 mg 40 mg=1 tab, No Longer [place] oral tablet PO, Daily, 0 Active 2015 Medical Refill(s) Center Sertraline 100 MG 200 mg=2 tab, Active [place] Oral Tablet PO, Daily, 0 2015 Medical [Zoloft] Refill(s) [place] pantoprazole 40 40 mg=1 tab, Active [place] MG Enteric Coated PO, Daily, 0 2015 Medical Tablet [Protonix] Refill(s) [place] gabapentin 300 MG 1 CAP PO BID Active [place] Oral Capsule AND 1 CAP AT 2016 Medical BEDTIME, 0 [place] Refill(s) Insulin, Aspart, 10 unit, No Longer [place] Human 100 UNT/ML SUB-Q, Active 2015 Medical Injectable TID-Meals, # [place] Solution 10 mL, 0 [NovoLog] Refill(s) buPROPion 150 mg 150 mg=1 tab, Active [place] oral tablet, PO, Daily, 0 2015 Medical extended release Refill(s) [place] Hydralazine 75 mg=3 tab, No Longer [place] Hydrochloride 25 PO, Daily, 0 Active 2015 Medical MG Oral Tablet Refill(s) [place] metoprolol 100 mg 100 mg=1 tab, No Longer [place] oral tablet, PO, Daily, # Active 2015 Medical extended release 30 tab, 0 [place] Refill(s) Insulin Glargine 50 unit, No Longer [place] 100 UNT/ML SUB-Q, Daily, Active 2015 Medical Injectable 0 Refill(s) [place] Solution [Lantus] Regular Insulin, 25 unit, No Longer [place] Human 100 UNT/ML SUB-Q, Active 2015 Medical Injectable TID-Meals, 0 [place] Solution [Humulin Refill(s) R] 24 HR Divalproex 500 mg=1 tab, Active [place] Sodium 500 MG PO, QAM, AND 2016 Medical Extended Release 2 TAB AT [place] Tablet [Depakote] BEDTIME, 0 Refill(s) atorvastatin 40 mg, 1 tab, No Longer [place] Route: PO, Active 2015 Medical Drug form: Center TAB, Bedtime, Dosing Weight 103.182, kg, Start date: 06/11/16 21:00:00 [employer], Duration: 30 day, Stop date: 07/10/16 21:00:00 CSTNotes: (Same as: Lipitor) Lactulose 10 gm, 15 mL, No Longer [place] Route: PO, Active 2015 Medical Drug Form: [place] SYRP, Dosing Weight 103.182, kg, TID, Start date: 06/11/16 13:00:00 [employer], Duration: 30 day, Stop date: 07/11/16 9:00:00 CSTNotes: (Same as:Chronulac) Furosemide 80 mg, 8 mL, No Longer [place] Route: IVP, Active 2015 Medical Drug form: [place] INJ, Q12H, Dosing Weight 86.364, kg, Start date: 06/11/16 9:00:00 [employer], Stop date: 07/10/16 21:00:00 CSTNotes: (Same as: Lasix) MEDICATION WASTE Product Size: 40 mg Product Wasted: ___ mg Aspirin 81 MG 81 mg, 1 tab, No Longer [place] Chewable Tablet Route: PO, Active 2015 Medical Drug form: [place] CHEWTAB, Daily, Dosing Weight 86.364, kg, Start date: 06/11/16 9:00:00 [employer], Duration: 30 day, Stop date: 07/10/16 9:00:00 CSTNotes: Take with food. gabapentin 300 MG 300 mg, 1 No Longer [place] Oral Capsule cap, Route: Active 2015 Medical PO, Drug [place] form: CAP, Q12H, Dosing Weight 86.364, kg, (CrCl 30 - 59 ml/min), Start date: 06/11/16 9:00:00 [employer], Stop date: 07/10/16 21:00:00 CSTNotes: (Same as: Neurontin) Divalproex Sodium 500 mg, 1 No Longer [place] 500 MG Enteric tab, Route: Active 2015 Medical Coated Tablet PO, Drug [place] [Depakote] form: ERTAB, QAM, Dosing Weight 86.364, kg, Start date: 06/11/16 9:00:00 [employer], Duration: 30 day, Stop date: 07/10/16 9:00:00 CSTNotes: (Same as: Depakote ER) Once daily dosing; indicated for migraines. Divalproex sodium extended-rele ase tab. Do not chew or crush. "Do Not Crush" Aspirin 81 mg, Route: No Longer [place] PO, Drug Active 2015 Medical form: ECTAB, Center Daily, Dosing Weight 86.364, kg, Start date: 06/11/16 9:00:00 [employer], Duration: 30 day, Stop date: 07/10/16 9:00:00 [employer] Insulin Glargine 40 unit, No Longer [place] 100 UNT/ML Route: SUB-Q, Active 2015 Medical Injectable Drug form: Center Solution [Lantus] SOLN, Daily, Dosing Weight 86.364, kg, Start date: 06/11/16 9:00:00 [employer], Duration: 30 day, Stop date: 07/10/16 9:00:00 CSTNotes: Same as: Lantus) Do not hold insulin without contacting prescriber WASTE: F/P - Black; E - [facility] Zoloft 200 mg, 2 No Longer [facility] tab, Route: Active 2015 Medical PO, Drug Center form: TAB, Daily, Dosing Weight 86.364, kg, Start date: 06/11/16 9:00:00 [employer], Duration: 30 day, Stop date: 07/10/16 9:00:00 CSTNotes: (Same as: Zoloft) Insulin, Aspart, 4 unit, 0.04 No Longer [facility] Human mL, Route: Active 2015 Medical SUB-Q, Drug Center form: SOLN, TID-Before Meals, Dosing Weight 103.182, kg, PRN Blood Glucose Results, Start date: 06/11/16 6:55:00 [employer], Duration: 30 day, Stop date: 07/11/16 6:54:00 CSTNotes: Roll in palms of hands gently; Do not shake vigorously. (Same as: NovoLOG) "single patient use only" WASTE: F/P - Black; E - [facility] Stable for 28 days at room temperature. Expires in days from _Date heparin sodium, 5,000 unit, 1 No Longer [facility] porcine 2500 mL, Route: Active 2015 Medical UNT/ML Injectable SUB-Q, Drug Center Solution form: INJ, Q8H, Dosing Weight 103.182, kg, Start date: 06/11/16 0:00:00 [employer], Duration: 30 day, Stop date: 07/10/16 16:00:00 CSTNotes: porcine heparin Albuterol 0.833 3 mL, Route: No Longer [place] MG/ML / NEB, Drug Active 2015 Medical Ipratropium Form: RADHAN, [place] 0.167 Dosing Weight MG/ML Inhalant 86.364, kg, Solution [DuoNeb] RQID, Start date: 06/10/16 21:00:00 [employer], Duration: 30 day, Stop date: 07/10/16 19:00:00 CSTNotes: (Same as: Duoneb) gabapentin 300 MG 300 mg, Inactive [place] Oral Capsule Route: PO, 2015 Medical Drug form: [place] CAP, Q12H, Dosing Weight 86.364, kg, (CrCl 30 - 59 ml/min), Start date: 06/10/16 21:00:00 [employer], Duration: 30 day, Stop date: 07/10/16 9:00:00 [employer] divalproex sodium 1,000 mg, 2 No Longer [facility] tab, Route: Active 2015 Medical PO, Drug Center form: ERTAB, Bedtime, Start date: 06/10/16 21:00:00 [employer], Duration: 30 day, Stop date: 07/09/16 21:00:00 CSTNotes: (Same as: Depakote ER) Once daily dosing; indicated for migraines. Divalproex sodium extended-rele ase tab. Do not chew or crush. "Do Not Crush" Losartan 25 mg, 1 tab, No Longer [facility] Route: PO, Active 2015 Medical Drug form: Center TAB, Daily, Dosing Weight 86.364, kg, Start date: 06/10/16 21:00:00 [employer], Duration: 30 day, Stop date: 07/10/16 9:00:00 CSTNotes: (Same as: Cozaar) Insulin, Aspart, 3 unit, 0.03 No Longer [facility] Human mL, Route: Active 2015 Medical SUB-Q, Drug Center form: SOLN, TID-Before Meals, Dosing Weight 86.364, kg, PRN Blood Glucose Results, Start date: 06/10/16 18:50:00 [employer], Duration: 30 day, Stop date: 07/10/16 18:49:00 CSTNotes: Roll in palms of hands gently; Do not shake vigorously. (Same as: NovoLOG) "single patient use only" WASTE: F/P - Black; E - [facility] Stable for 28 days at room temperature. Expires in days from _Date Dextrose 50% 12.5 gm, 25 No Longer [place] Syringe mL, Route: Active 2015 Medical IVP, Drug Center Form: INJ, Dosing Weight 86.364, kg, PRN, PRN Blood Glucose Results, Start date: 06/10/16 18:50:00 [employer], Duration: 30 day, Stop date: 07/10/16 18:49:00 [employer] Glucagon 1 mg, Route: No Longer [place] IM, Drug Active 2015 Medical form: Center PDR/INJ, PRN, Dosing Weight 86.364, kg, PRN Blood Glucose Results, Start date: 06/10/16 18:50:00 [employer], Duration: 30 day, Stop date: 07/10/16 18:49:00 [employer] Hydralazine 10 mg, 0.5 No Longer [place] mL, Route: Active 2015 Medical IV, Drug Center form: INJ, Q4H, Dosing Weight 86.364, kg, PRN Hypertension, Start date: 06/10/16 18:36:00 [employer], Duration: 30 day, Stop date: 07/10/16 18:35:00 [employer], SBP > 160 or DBP > 100, hold for HR Notes: (Same as: Apresoline) Push over 5 minutes Hydralazine 100 mg, 2 No Longer [place] tab, Route: Active 2015 Medical PO, Drug Center form: TAB, TID, Dosing Weight 86.364, kg, Priority: NOW, Start date: 06/10/16 18:34:00 [employer], Stop date: 07/10/16 17:00:00 CSTNotes: (Same as: Apresoline) May interfere w/enteral feedings Take With Food metoprolol 100 mg, 1 No Longer [place] extended release tab, Route: Active 2015 Medical PO, Drug Center form: ERTAB, Daily, Priority: NOW, Start date: 06/10/16 18:08:00 [employer], Stop date: 07/10/16 9:00:00 CSTNotes: (Same as: Toprol XL) May split tab, but do not crush. Hydralazine 10 mg, Route: Inactive [facility] IV, ONCE, 2015 Medical Dosing Weight Center 86.364, kg, Start date: 06/10/16 18:06:00 [employer], Stop date: 06/10/16 18:06:00 [employer] hydrOXYzine 50 mg, 1 cap, No Longer [facility] pamoate Route: PO, Active 2015 Medical Drug form: Center CAP, TID, Dosing Weight 86.364, kg, Start date: 06/10/16 17:00:00 [employer], Duration: 30 day, Stop date: 07/10/16 13:00:00 CSTNotes: (Same as: Vistaril) Furosemide 60 mg, Route: Inactive [facility] IVP, Drug 2015 Medical form: INJ, Center ONCE, Dosing Weight 86.364, kg, Start date: 06/10/16 16:32:00 [employer], Stop date: 06/10/16 16:32:00 [employer] Lasix 40 mg, 4 mL, Inactive [facility] Route: IVP, 2015 Medical Drug form: [place] INJ, ONCE, Dosing Weight 86.364, kg, Priority: STAT, Start date: 06/10/16 11:22:00 [employer], Stop date: 06/10/16 11:22:00 CSTNotes: (Same as: Lasix) MEDICATION WASTE Product Size: 40 mg Product Wasted: _0__ mg Albuterol 0.833 3 ml, Route: No Longer [facility] MG/ML / NEB, Drug Active 2015 Medical Ipratropium Form: SOLN, Center [place] 0.167 Dosing Weight MG/ML Inhalant 86.364, kg, Solution [DuoNeb] PRN, PRN Respiratory Protocol, Start date: 06/10/16 11:22:00 [employer], Stop date: 07/10/16 11:21:00 CSTNotes: (Same as: Duoneb) Promethazine 25 mg=1 supp, Active [facility] Hydrochloride 25 NV, Q6H, 2015 Medical MG Rectal Nausea & Center Suppository Vomiting, # 9 [Phenergan] supp, 0 Refill(s) Ondansetron 4 MG 4 mg=1 tab, Active [facility] Disintegrating PO, BID, 2014 Medical Tablet [Zofran] Nausea and Center Vomiting, Dissolve tab under tongue, # 10 tab, 0 Refill(s)Spec ial Instructions: Dissolve tab under tongue Metoclopramide 10 10 mg=1 tab, Active [facility] MG Oral Tablet PO, QID, # 40 2015 Medical [Reglan] tab, 0 Center Refill(s) Erythromycin 500 =1 tab, PO, Active [place] MG Enteric Coated Q6H, # 40 2015 Medical Tablet tab, 0 Center Refill(s) Hydromorphone 1 mg, 0.5 mL, Inactive [facility] Route: IVP, 2014 Medical Drug form: Center INJ, ONCE, Dosing Weight 75, kg, Priority: STAT, Start date: 06/26/14 5:48:00, Stop date: 06/26/14 5:48:00Notes: Same as: Dilaudid hydrOXYzine 0 Refill(s) Active [facility] pamoate 2014 [facility] Dicyclomine 0 Refill(s) Active [facility] 2014 [facility] Ondansetron 0 Refill(s) Active [facility] 2014 [facility] Benztropine 0 Refill(s) Active [facility] 2014 [facility] Clonidine 0 Refill(s) Active [facility] 2014 [facility] Zoloft 0 Refill(s) Active [facility] 2014 [facility] Metoclopramide 0 Refill(s) Active [facility] 2014 [facility] Erythromycin 0 Refill(s) Active [facility] 2014 [facility] Tramadol 0 Refill(s) Active [facility] 2014 [facility] Depakote 0 Refill(s) Active [facility] 2014 [facility] quetiapine 0 Refill(s) Active [facility] Sodium Chloride 2,000 mL, Inactive [facility] 0.154 MEQ/ML 1,000 ml/hr, 2014 Medical Injectable Infuse Over: Center Solution 2 hr, Route: IV, 2,000, Drug form: INJ, ONCE, Priority: STAT, Dosing Weight 75 kg, Start date: 06/26/14 4:56:00, Duration: 1 doses or times, Stop date: 06/26/14 4:56:00 Lorazepam 2 mg, 1 mL, Inactive [place] Route: IVP2014 Medical Drug form: Center INJ, ONCE, Dosing Weight 75, kg, Priority: STAT, Start date: 06/26/14 4:56:00, Stop date: 06/26/14 4:56:00Notes: (Same as: Ativan) Metoclopramide 10 mg, 2 mL, Inactive [place] Route: IVP2014 Medical Drug form: Center INJ, ONCE, Dosing Weight 75, kg, Priority: STAT, Start date: 06/26/14 4:55:00, Stop date: 06/26/14 4:55:00Notes: (Same as: Reglan) Zofran ODT 4 mg 4 mg, 1 tab, Active [facility] oral tablet, PO, BID, PRN, 2012 [facility] disintegrating Dissolve tab under tongue, 10 tab, Nausea and Vomiting, Substitution AllowedDissol ve tab under tongue Saline Flush 0.9% 5 mL, Route: No Longer [facility] IVP, Drug Active 2012 [facility] Form: INJ, Dosing Weight 63.636, kg, PRN, PRN Line Flush, Start date: 04/14/13 23:10:00, Duration: 24 hr, Stop date: 04/15/13 23:09:00(Same as: BD Posiflush) morphine Sulfate 4 mg, Route: No Longer [place] IVP, ONCE, Active 2012 [facility] Dosing Weight 63.636, kg, Priority: STAT, Start date: 04/14/13 23:10:00, Stop date: 04/14/13 23:10:00 ketorolac 30 mg, Route: No Longer [place] IVP, ONCE, Active 2012 [facility] Dosing Weight 63.636, kg, Priority: STAT, Start date: 04/14/13 23:10:00, Stop date: 04/14/13 23:10:00 ondansetron 4 mg, Route: No Longer [place] IVP, ONCE, Active 2012 [facility] Dosing Weight 63.636, kg, Priority: STAT, Start date: 04/14/13 23:10:00, Stop date: 04/14/13 23:10:00 Sodium Chloride 1,000 mL, No Longer [place] 0.9% IV 1,000 mL Rate: 125 2012 [place] ml/hr, Infuse over: 8 hr, Route: IV, Dosing Weight 63.636 kg, Total Volume: 1,000, Start date: 04/14/13 23:10:00, Duration: 30 day, Stop date: 05/14/13 23:09:00 morphine Sulfate 5 mg, Route: IVP No Longer [place] IVP, ONCE, 2011 [facility] Dosing Weight 58.636, kg, Priority: STAT, Start date: 03/14/12 20:15:00, Stop date: 03/14/12 20:15:00 Sodium Chloride 500 mL, Rate: IV No Longer [place] 0.9% (Bolus) IV 500 ml/hr, 2011 [facility] 500 mL Infuse over: 1 hr, Route: IV, kg, Total Volume: 500, Bolus Dose, Priority: STAT, Start date: 03/14/12 18:45:00, Duration: 1 doses or times, Stop date: 03/14/12 19:44:00 ondansetron 4 mg, Route: IVP No Longer [place] IVP, ONCE, 2011 [facility] Dosing Weight 58.636, kg, Priority: STAT, Start date: 03/14/12 17:19:00, Stop date: 03/14/12 17:19:00 morphine Sulfate 5 mg, Route: IVP No Longer [place] IVP, ONCE, 2011 [facility] Dosing Weight 58.636, kg, Priority: STAT, Start date: 03/14/12 17:19:00, Stop date: 03/14/12 17:19:00 pantoprazole 40 mg, Route: IVP No Longer [place] IVP, ONCE, 2011 [facility] Dosing Weight 58.636, kg, For IV push reconstitute with 10 ml 0.9% sodium chloride and push over at least 3 minutes, Priority: STAT, Start date: 03/14/12 17:19:00, Stop date: 03/14/12 17:19:00 Sodium Chloride 500 mL, Rate: IV No Longer [place] 0.9% (Bolus) IV 1,000 ml/hr, Active 2011 [facility] 500 mL Infuse over: 0.5 hr, Route: IV, kg, Total Volume: 500, Bolus dose, Priority: STAT, Start date: 03/14/12 17:19:00, Duration: 1 doses or times, Stop date: 03/14/12 17:48:00 Reglan 10 mg oral 10 mg, 1 tab, PO Active [facility] tablet PO, 2011 Medical QID-Before Center Meals, 120 tab, 1, 1, Substitution Allowed insulin 10 unit, 0.1 SUB-Q No Longer [facility] isophane-NPH mL, Route: Active 2011 Medical SUB-Q, Drug Center form: INJ, Bedtime, Start date: 11/29/11 21:00:00, Duration: 30 day, Stop date: 12/28/11 21:00:00 Insulin regular 8 unit, 0.08 SUB-Q No Longer [facility] 11/29[facility] mL, Route: Active 2011 Medical SUB-Q, Drug Center form: SOLN, Bedtime, Start date: 11/29/11 21:00:00, Duration: 30 day, Stop date: 12/28/11 21:00:00 trazodone 100 mg 200 mg, 2 PO No Longer [facility] 11/29[facility] oral tablet tab, Route: Active 2011 Medical PO, Drug Center form: TAB, Bedtime, Start date: 11/29/11 21:00:00, Duration: 30 day, Stop date: 12/28/11 21:00:00 Geodon 120 mg, 3 PO No Longer [facility] 11/29[facility] cap, Route: Active 2011 Medical PO, Drug Center form: CAP, Bedtime, Start date: 11/29/11 21:00:00, Duration: 30 day, Stop date: 12/28/11 21:00:00 amLODipine 5 mg, 1 tab, PO No Longer [facility] Route: PO, Active 2011 Medical Drug form: Center TAB, ONCE, Priority: NOW, Start date: 11/29/11 20:11:00, Stop date: 11/29/11 20:11:00 morphine Sulfate 2 mg, Route: IVP No Longer Omidvar [facility] IVP, ONCE, Active 2011 Medical Start date: [place] 11/29/11 16:33:00, Stop date: 11/29/11 16:33:00 morphine Sulfate 2 mg, 0.5 mL, IVP No Longer Omidvar [facility] Route: IVP, Active 2011 Medical Drug form: [place] INJ, ONCE, Start date: 11/29/11 16:32:00, Stop date: 11/29/11 16:32:00 Tylenol 650 mg, 2 PO No Longer Omidvar [facility] tab, Route: Active 2011 Medical PO, Drug Center form: TAB, Q4H, PRN Pain, Start date: 11/29/11 14:16:00, Duration: 30 day, Stop date: 12/29/11 14:15:00 insulin 14 unit, 0.14 SUB-Q No Longer [facility] isophane-NPH mL, Route: Active 2011 Medical SUB-Q, Drug Center form: INJ, Daily, Start date: 11/29/11 9:00:00, Duration: 30 day, Stop date: 12/28/11 9:00:00 Insulin regular 10 unit, 0.1 SUB-Q No Longer [facility] mL, Route: Active 2011 Medical SUB-Q, Drug Center form: SOLN, Daily, Start date: 11/29/11 9:00:00, Duration: 30 day, Stop date: 12/28/11 9:00:00 Effexor XR 75 mg, 1 cap, PO No Longer [facility] 11/28[facility] Route: PO, Active 2011 Medical Drug form: Center ERCAP, Daily, Start date: 11/29/11 9:00:00, Duration: 30 day, Stop date: 12/28/11 9:00:00 lisinopril 40 mg, 2 tab, PO No Longer Gunnar [facility] Route: PO, Active 2011 Medical Drug form: Center TAB, Daily, Start date: 11/29/11 9:00:00, Duration: 30 day, Stop date: 12/28/11 9:00:00 benztropine 1 mg, 1 tab, PO No Longer Gunnar [facility] Route: PO, Active 2011 Medical Drug form: [place] TAB, BID, Start date: 11/29/11 9:00:00, Duration: 30 day, Stop date: 12/28/11 17:00:00 amLODipine 5 mg, 1 tab, PO No Longer Gunnar [facility] Route: PO, Active 2011 Medical Drug form: [place] TAB, Daily, Start date: 11/29/11 9:00:00, Duration: 30 day, Stop date: 12/28/11 9:00:00 insulin aspart 10 unit, 0.1 SUB-Q No Longer Gunn[facility] mL, Route: Active 2011 Medical SUB-Q, Drug Center form: SOLN, TID-Before Meals, PRN Blood Glucose Results, Start date: 11/29/11 1:30:00, Duration: 30 day, Stop date: 12/29/11 1:29:00 Dextrose 50% 25 gm, 50 mL, IVP No Longer Gunn[facility] Syringe Route: IVP, Active 2011 Medical Drug Form: Center INJ, PRN, PRN Blood Glucose Results, Start date: 11/29/11 1:30:00, Duration: 30 day, Stop date: 12/29/11 1:29:00 glucagon 1 mg, Route: IM No Longer Gunnar [facility] IM, Drug Active 2011 Medical form: [place] PDR/INJ, PRN, PRN Blood Glucose Results, Start date: 11/29/11 1:30:00, Duration: 30 day, Stop date: 12/29/11 1:29:00 normal saline 1,000 mL, IV No Longer Gunn[facility] 0.9% IV 1,000 mL Rate: 200 Active 2011 Medical ml/hr, Infuse Center over: 5 hr, Route: IV, Dosing Weight 57.273 kg, Total Volume: 1,000, Start date: 11/29/11 1:29:00, Duration: 30 day, Stop date: 12/29/11 1:28:00 Saline Flush 0.9% 5 ml, Route: IVP No Longer Gunnar [facility] IVP, Drug Active 2011 Medical Form: INJ, Center PRN, PRN Line Flush, Start date: 11/29/11 1:28:00, Duration: 30 day, Stop date: 12/29/11 1:27:00 ondansetron 4 mg, 2 mL, IVP No Longer [facility] 11/28[facility] Route: IVP, Active 2011 Medical Drug form: [place] INJ, Q8H, PRN Nausea & Vomiting, Start date: 11/29/11 1:28:00, Duration: 30 day, Stop date: 12/29/11 1:27:00 Reglan 10 mg, 2 mL, IVP No Longer [facility] 11/28[facility] Route: IVP, Active 2011 Medical Drug form: [place] INJ, Q6H, Priority: STAT, Start date: 11/29/11 1:28:00, Duration: 30 day, Stop date: 12/29/11 0:00:00 Protonix 40 mg, Route: IV No Longer [facility] 11/28[facility] IV, Drug Active 2011 Medical form: INJ, [place] ONCE, Priority: STAT, Start date: 11/29/11 1:28:00, Stop date: 11/29/11 1:28:00 metoclopramide 10 mg, 2 mL, IVP No Longer [facility] 11/28[facility] Route: IVP, Active 2011 Medical Drug form: [place] INJ, ONCE, Priority: STAT, Start date: 11/28/11 23:01:00, Stop date: 11/28/11 23:01:00 Zofran 4 mg, 2 mL, IVP No Longer [facility] 11/28[facility] Route: IVP, Active 2011 Medical Drug form: [place] INJ, ONCE, Priority: STAT, Start date: 11/28/11 21:31:00, Stop date: 11/28/11 21:31:00 NS (Bolus) IV 1,000 mL, IV No Longer [facility] 1,000 mL Rate: 1,000 Active 2011 Medical ml/hr, Infuse Center over: 1 hr, Route: IV, Dosing Weight 57.273 kg, Total Volume: 1,000, Start date: 11/28/11 17:48:00, Duration: 30 day, Stop date: 12/28/11 17:47:00 NS (Bolus) IV 1,000 mL, IV No Longer Domen[facility] 06/09[facility] 1,000 mL Rate: 1,000 Active 2011 Medical ml/hr, Infuse Center over: 1 hr, Route: IV, Dosing Weight 57.273 kg, Total Volume: 1,000, Start date: 11/28/11 15:36:00, Duration: 30 day, Stop date: 12/28/11 15:35:00 Ativan 2 mg, 1 mL, IVP No Longer Domenico [place] Route: IVP, Active 2011 Medical Drug form: Center INJ, ONCE, Priority: STAT, Start date: 11/28/11 15:35:00, Stop date: 11/28/11 15:35:00 Novolin R 100 8 unit, SUB-Q Active [facility] units/mL SUB-Q, Q12H, 2011 Medical injectable 2 vial, Center solution Substitution Allowed, SOLN Novolin N 100 10 unit, SUB-Q Active [facility] units/mL SUB-Q, 2011 Medical subcutaneous Bedtime, 10 Center injection ml, Substitution Allowed, SUSP Novolin N 100 14 unit, SUB-Q Active [facility] units/mL SUB-Q, QAM, 1 2011 Medical subcutaneous vial, Center injection Substitution Allowed, SUSP magnesium oxide 400 mg, 1 PO No Longer [facility] tab, Route: Active 2011 Medical PO, Drug Center form: TAB, ONCE, Priority: STAT, Start date: 09/18/11 9:55:00, Stop date: 09/18/11 9:55:00 Insulin regular 8 unit, 0.08 SUB-Q No Longer [facility] mL, Route: Active 2011 Medical SUB-Q, Drug Center form: SOLN, ONCE, Priority: STAT, Start date: 09/18/11 9:22:00, Stop date: 09/18/11 9:22:00 Lactated Ringers 1,000 mL, IV No Longer [facility] (Bolus) IV 1,000 Rate: 1,000 Active 2011 Medical mL ml/hr, Infuse Center over: 1 hr, Route: IV, Total Volume: 1,000, Bolus Dose, Priority: STAT, Start date: 09/18/11 9:16:00, Duration: 1 doses or times, Stop date: 09/18/11 10:15:00 Sodium Chloride 1,000 mL, IV No Longer [facility] 0.9% (Bolus) IV Rate: 1,000 Active 2011 [facility] 1000 mL ml/hr, Infuse Center over: 1 hr, Route: IV, kg, Total Volume: 1,000, Bolus Dose, Priority: STAT, Start date: 09/18/11 9:06:00, Duration: 1 doses or times, Stop date: 09/18/11 10:05:00 sulfamethoxazole Substitution Active [place] Allowed 2011 [facility] Sodium Chloride 1,000 mL, IV No Longer [facility] 0.9% (Bolus) IV Rate: 1,000 Active 2011 [facility] 1000 mL ml/hr, Infuse Center over: 1 hr, Route: IV, kg, Total Volume: 1,000, Bolus Dose, Priority: STAT, Start date: 09/18/11 8:56:00, Duration: 1 doses or times, Stop date: 09/18/11 9:55:00 clindamycin 300 mg, 2 PO No Longer Anabelle [facility] cap, Route: Active 2011 Medical PO, Drug Center form: CAP, Q8H, Start date: 09/09/11 16:00:00, Duration: 30 day, Stop date: 10/09/11 8:00:00 Colace 100 mg 100 mg, 1 PO Active [place] [facility] oral capsule cap, PO, BID, 2011 Medical 60 cap, Center Substitution Allowed, CAP clindamycin 150 300 mg, 2 PO Active [place] mg oral capsule cap, PO, Q8H, 2011 Medical 30 cap, Center Substitution Allowed, CAP [place] 10/325 oral 1 tab, PO, PO Active Zeeshan [facility] tablet Q4H, PRN, 30 2011 Medical tab, Pain, Center Substitution Allowed, Maintenance, TAB [place] 10/325 oral 1 tab, Route: PO No Longer [facility]i [facility] tablet PO, Drug Active 2011 Medical Form: TAB, Center Q4H, Start date: 09/09/11 4:00:00, Duration: 30 day, Stop date: 10/09/11 0:00:00 Colace 100 mg 100 mg, 1 PO No Longer Omidvar 03/19/ [facility] oral capsule cap, Route: Active 2011 Medical PO, Drug Center form: CAP, BID, Start date: 09/07/11 17:00:00, Duration: 30 day, Stop date: 10/07/11 9:00:00 enalapril 5 mg, 1 tab, PO No Longer Omidvar [facility] Route: PO, Active 2011 Medical Drug form: Center TAB, Daily, Start date: 09/07/11 10:30:00, Duration: 30 day, Stop date: 10/07/11 9:00:00 flumazenil 0.2 mg, 2 mL, IVP No Longer [facility] Route: IVP, Active 2011 Medical Drug form: Center INJ, PRN, PRN Benzodiazepin e Reversal, Initial dose, Start date: 09/07/11 9:19:00, Duration: 1 day, Stop date: 09/08/11 9:18:00 naloxone 0.04 mg, 0.1 IVP No Longer [place] 09/06[facility] mL, Route: Active 2011 Medical IVP, Drug Center form: INJ, Q2MIN, PRN Narcotic Reversal, Start date: 09/07/11 9:19:00, Duration: 8 doses or times, Stop date: Limited # of times ondansetron 4 mg, 2 mL, IVP No Longer [place] [facility] Route: IVP, Active 2011 Medical Drug form: Center INJ, ONCE, PRN Nausea & Vomiting, Start date: 09/07/11 9:19:00 hydromorphone 0.5 mg, 0.25 IVP No Longer [place] 09/06[facility] [place] mL, Route: Active 2011 Medical IVP, Drug Center form: INJ, Q5Min, PRN Pain Score 4-6, Start date: 09/07/11 9:19:00, Duration: 5 doses or times, Stop date: Limited # of times acetaminophen-hyd 15 mL, Route: PO No Longer [place] [facility] rocodone 325 PO, Drug Active 2011 Medical mg-10 mg/15 mL Form: SOLN, Center oral solution Q4H, PRN Pain Score 4-6, Start date: 09/07/11 9:19:00, Duration: 1 day, Stop date: 09/08/11 8:00:00 Lactated Ringers 1,000 mL, IV No Longer Omidvar [facility] IV 1,000 mL Rate: 125 Active 2011 Medical ml/hr, Infuse Center over: 8 hr, Route: IV, Dosing Weight 68.182 kg, Total Volume: 1,000, Start date: 09/07/11 9:06:00, Duration: 30 day, Stop date: 10/07/11 9:05:00 clindamycin 600 mg, IVPB No Longer Arias [facility] Route: IVPB, Active 2011 Medical ONCE, Start Center date: 09/07/11 8:31:00, Stop date: 09/07/11 8:31:00 normal saline 1,000 mL, IV No Longer Adeline [facility] 0.9% IV 1,000 mL Rate: 100 2011 Medical ml/hr, Infuse Center over: 10 hr, Route: IV, Dosing Weight 68.18 kg, Total Volume: 1,000, Start date: 09/07/11 0:00:00, Duration: 30 day, Stop date: 10/06/11 23:59:00 normal saline 1,000 mL, IV No Longer Adeline [facility] 0.9% IV 1000 mL Rate: 100 2011 Medical ml/hr, Infuse Center over: 10 hr, Route: IV, kg, Total Volume: 1,000, Start date: 09/06/11 8:25:00, Duration: 30 day, Stop date: 10/06/11 8:24:00 senna 8.6 mg oral 8.6 mg, 1 PO No Longer Omidvar [facility] tablet tab, Route: Active 2011 Medical PO, Drug Center Form: TAB, BID, PRN as needed for constipation, Start date: 09/05/11 10:00:00, Duration: 30 day, Stop date: 10/05/11 9:00:00 Colace 100 mg 100 mg, 1 PO No Longer Omidvar [facility] oral capsule cap, Route: Active 2011 Medical PO, Drug Center form: CAP, BID, PRN as needed for constipation, Start date: 09/05/11 10:00:00, Duration: 30 day, Stop date: 10/05/11 9:00:00 potassium 40 mEq, 2 PO No Longer Omidvar [facility] chloride tab, Route: Active 2011 Medical PO, Drug Center form: ERTAB, ONCE, Start date: 09/05/11 9:11:00, Stop date: 09/05/11 9:11:00 Dulcolax Laxative 10 mg, 2 tab, PO No Longer [facility] Route: PO, Active 2011 Medical Drug form: [place] ECTAB, Daily, PRN Constipation, Priority: NOW, Start date: 09/04/11 23:00:00, Duration: 30 day, Stop date: 10/04/11 22:59:00 Zofran 4 mg, 2 mL, IV No Longer Peg [facility] Route: IV, Active 2011 Medical Drug form: [place] INJ, Q4H, PRN as needed for nausea/vomiti ng, Priority: NOW, Start date: 09/04/11 18:11:00, Duration: 30 day, Stop date: 10/04/11 18:10:00 [place] 10/325 oral 1 tab, Route: PO No Longer Dez [facility] tablet PO, Drug Active 2011 Medical Form: TAB, Center Q4H, Start date: 09/04/11 12:00:00, Duration: 30 day, Stop date: 10/04/11 8:00:00 Sodium Chloride 320 mL, Rate: NERVE No Longer Kavon [facility] 0.9% IV 320 mL + 10 ml/hr, BLOCK Active 2011 Medical ropivacaine 1% Infuse over: Center 800 mg + Q-Pump 1 40 hr, Route: ea NERVE BLOCK, Dosing Weight 68.182 kg, Total Volume: 400, Start date: 09/04/11 10:01:00, Duration: 7 day, Stop date: 09/11/11 10:00:00 ondansetron 4 mg, 2 mL, IVP No Longer K[facility] Route: IVP, Active 2011 Medical Drug form: [place] INJ, ONCE, PRN Nausea & Vomiting, Start date: 09/04/11 9:50:00, Duration: 1 doses or times, Stop date: Limited # of times ropivacaine 0.2% Dosing: NERVE No Longer Kavon [facility] in [place] - site 1 10cc/hr, BLOCK Active 2011 Medical 400 mL Route: NERVE Center BLOCK, Start date: 09/04/11 9:50:00 400 mL, Duration: 30 day, Stop date: 10/04/11 9:49:00 naloxone 0.04 mg, 0.1 IVP No Longer Kavon [facility] mL, Route: Active 2011 Medical IVP, Drug Center form: INJ, Q2MIN, PRN Narcotic Reversal, Start date: 09/04/11 9:50:00, Duration: 30 day, Stop date: 10/04/11 9:49:00 [place] 10/325 oral 1 tab, Route: PO No Longer Omidvar [place] tablet PO, Drug Active 2011 Medical Form: TAB, Center Q4H, PRN Pain, Start date: 09/04/11 9:49:00, Stop date: 10/04/11 9:48:00 labetalol 5 mg, Route: IV No Longer Puga Micki IV, ONCE, Active 2011 Medical Start date: Center 09/04/11 9:40:00, Stop date: 09/04/11 9:40:00 ondansetron 4 mg, 2 mL, IVP No Longer [place] Route: IVP, Active 2011 Medical Drug form: Center INJ, ONCE, PRN Nausea & Vomiting, Start date: 09/04/11 8:37:00 naloxone 0.04 mg, 0.1 IVP No Longer [place] [facility] mL, Route: Active 2011 Medical IVP, Drug Center form: INJ, Q2MIN, PRN Narcotic Reversal, Start date: 09/04/11 8:37:00, Duration: 8 doses or times, Stop date: Limited # of times meperidine 12.5 mg, 0.5 IVP No Longer [facility] mL, Route: Active 2011 Medical IVP, Drug Center form: INJ, Q30Min, PRN Other -See Comment, For shivering, Start date: 09/04/11 8:37:00, Duration: 2 doses or times, Stop date: Limited # of times flumazenil 0.2 mg, 2 mL, IVP No Longer [facility]den [facility] Route: IVP, Active 2011 Medical Drug form: Center INJ, PRN, PRN Benzodiazepin e Reversal, Initial dose, Start date: 09/04/11 8:37:00, Duration: 1 day, Stop date: 09/05/11 8:36:00 hydromorphone 0.5 mg, 0.25 IVP No Longer Kavon [facility] mL, Route: Active 2011 Medical IVP, Drug Center form: INJ, Q5Min, PRN Pain Score 4-6, Start date: 09/04/11 8:37:00, Duration: 5 doses or times, Stop date: Limited # of times clindamycin 600 mg, 4 mL, IVPB No Longer Anabelle [facility] Route: IVPB, Active 2011 Medical ABXQ8H, Start Center date: 09/03/11 11:00:00, Duration: 30 day, Stop date: 10/03/11 8:00:00 potassium 40 mEq, 2 PO No Longer Omidvar [facility] chloride tab, Route: Active 2011 Medical PO, Drug Center form: ERTAB, ONCE, Start date: 09/03/11 8:39:00, Stop date: 09/03/11 8:39:00 [place] 5/325 oral 1 tab, Route: PO No Longer Kavon [facility] tablet PO, Drug Active 2011 Medical Form: TAB, Center Q4H, Start date: 09/03/11 0:00:00, Duration: 30 day, Stop date: 10/02/11 20:00:00 Geodon 120 mg, 3 PO No Longer Anabelle [facility] cap, Route: Active 2011 Medical PO, Drug Center form: CAP, Bedtime, Start date: 09/02/11 21:00:00, Duration: 30 day, Stop date: 10/01/11 21:00:00 trazodone 100 mg 200 mg, 4 PO No Longer Anabelle [facility] oral tablet tab, Route: Active 2011 Medical PO, Drug Center form: TAB, Bedtime, Start date: 09/02/11 21:00:00, Duration: 30 day, Stop date: 10/01/11 21:00:00 Effexor XR 75 mg, 1 cap, PO No Longer Anabelle [facility] Route: PO, Active 2011 Medical Drug form: [place] ERCAP, Daily, Give qAM after today's dose., Start date: 09/02/11 12:00:00, Duration: 30 day, Stop date: 10/02/11 9:00:00 [place] 5/325 oral 1 tab, Route: PO No Longer Kavon [facility] tablet PO, Drug Active 2011 Medical Form: TAB, [place] Q4H, PRN Pain, Start date: 09/02/11 11:25:00, Duration: 30 day, Stop date: 10/02/11 11:24:00 magnesium sulfate 4 gm, 50 mL, IVPB No Longer Omidvar [facility] Route: IVPB, Active 2011 Medical Drug form: [place] INJ, ONCE, Start date: 09/02/11 11:15:00, Stop date: 09/02/11 11:15:00 Lovenox 40 mg, 0.4 SUB-Q No Longer Movva [facility] mL, Route: Active 2011 Medical SUB-Q, Drug Center form: INJ, Daily, Start date: 09/02/11 9:00:00, Duration: 30 day, Stop date: 10/01/11 9:00:00 vancomycin 1 gm, Route: IVPB No Longer Anabelle [facility] IVPB, Drug Active 2011 Medical form: INJ, [place] [id number], Start date: 09/02/11 9:00:00, Duration: 30 day, Stop date: 10/01/11 21:00:00 clindamycin 600 mg, 4 mL, IVPB No Longer [facility] 09/01[facility] Route: IVPB, Active 2011 Medical ABXQ8H, Start Center date: 09/02/11 5:00:00, Duration: 3 doses or times, Stop date: 09/02/11 21:00:00 clindamycin 600 mg, 4 mL, IVPB No Longer [facility] ([facility]) Route: IVPB, Active 2011 Medical ABXQ8H, Start Center date: 09/01/11 23:00:00, Duration: 3 doses or times, Stop date: 09/02/11 15:00:00 insulin 15 unit, 0.15 SUB-Q No Longer Omidvar [place] isophane-NPH mL, Route: Active 2011 Medical SUB-Q, Drug Center form: INJ, Q12H, Start date: 09/01/11 21:00:00, Stop date: 10/01/11 9:00:00 labetalol 5 mg, Route: IVP No Longer [facility]iciano [facility] IVP, Q5Min, Active 2011 Medical PRN Elevated Center BP, Start date: 09/01/11 20:07:00, Duration: 5 doses or times, Stop date: Limited # of times hydrALAZINE 5 mg, Route: IVP No Longer [facility]iciano [facility] IVP, Q5Min, Active 2011 Medical PRN Elevated Center BP, Start date: 09/01/11 20:07:00, Duration: 4 doses or times, Stop date: Limited # of times hydromorphone 0.5 mg, IVP No Longer [facility]iciano [facility] Route: IVP, Active 2011 Medical Q5Min, PRN Center Pain Score 4-6, Start date: 09/01/11 20:07:00, Duration: 5 doses or times, Stop date: Limited # of times naloxone 0.04 mg, IVP No Longer [facility]iciano [facility] Route: IVP, Active 2011 Medical Q2MIN, PRN Center Narcotic Reversal, Start date: 09/01/11 20:07:00, Duration: 8 doses or times, Stop date: Limited # of times flumazenil 0.2 mg, IVP No Longer Feliciano [facility] Route: IVP, Active 2011 Medical PRN, PRN Center Benzodiazepin e Reversal, Initial dose, Start date: 09/01/11 20:07:00, Duration: 30 day, Stop date: 10/01/11 20:06:00 ondansetron 4 mg, Route: IVP No Longer [facility]iciano [facility] IVP, ONCE, Active 2011 Medical PRN Nausea & Center Vomiting, Start date: 09/01/11 20:07:00 vancomycin 1 gm, Route: IVPB No Longer Gauvain [facility] IVPB, Drug Active 2011 Medical form: INJ, Center [id number], Start date: 09/01/11 20:00:00, Duration: 30 day, Stop date: 10/01/11 8:00:00 Lactated Ring[place] 1,000 mL, IV No Longer Wong [facility] IV 1,000 mL Rate: 125 Active 2011 Medical ml/hr, Infuse Center over: 8 hr, Route: IV, Dosing Weight 68.2 kg, Total Volume: 1,000, Start date: 09/01/11 19:55:00, Duration: 30 day, Stop date: 10/01/11 19:54:00 vancomycin 1 gm, Route: IVPB No Longer Movva [facility] IVPB, Drug Active 2011 Medical form: INJ, Center [id number], Start date: 09/01/11 19:00:00, Duration: 30 day, Stop date: 10/01/11 7:00:00 insulin aspart 6 unit, 0.06 SUB-Q No Longer Movva 08/31[facility] mL, Route: Active 2011 Medical SUB-Q, Drug Center form: SOLN, TID-Before Meals, PRN Blood Glucose Results, Start date: 09/01/11 18:23:00, Duration: 30 day, Stop date: 10/01/11 18:22:00 glucagon 1 mg, Route: IM No Longer Movva 08/31[facility] IM, Drug Active 2011 Medical form: [place] PDR/INJ, PRN, PRN Blood Glucose Results, Start date: 09/01/11 18:23:00, Duration: 30 day, Stop date: 10/01/11 18:22:00 Dextrose 50% 25 gm, 50 mL, IVP No Longer Movva 08/31[facility] Syringe Route: IVP, Active 2011 Medical Drug Form: Center INJ, PRN, PRN Blood Glucose Results, Start date: 09/01/11 18:23:00, Duration: 30 day, Stop date: 10/01/11 18:22:00 morphine Sulfate 2 mg, 1 mL, IVP No Longer Beni [facility] Route: IVP, Active 2011 Medical Drug form: [place] INJ, Q4H, PRN Severe Pain, Start date: 09/01/11 16:14:00, Stop date: 10/01/11 16:13:00 Lactated Ringers 1,000 mL, IV No Longer [facility] [facility] IV 1,000 mL Rate: 100 Active 2011 Medical ml/hr, Infuse Center over: 10 hr, Route: IV, Dosing Weight 68.182 kg, Total Volume: 1,000, Start date: 09/01/11 14:03:00, Duration: 30 day, Stop date: 10/01/11 14:02:00 morphine Sulfate 4 mg, 1 mL, IVP No Longer [facility] Route: IVP, Active 2011 Medical Drug form: Center INJ, ONCE, Start date: 09/01/11 12:13:00, Stop date: 09/01/11 12:13:00 Lactated Ringers 2,000 mL, IV No Longer [facility] ([place]) IV 2,000 Rate: 100 Active 2011 Medical mL ml/hr, Infuse Center over: 20 hr, Route: IV, Dosing Weight 68.18 kg, Total Volume: 2,000, Start date: 09/01/11 10:42:00, Duration: 1 doses or times, Stop date: 09/02/11 6:41:00 Insulin regular 8 unit, 0.08 SUB-Q No Longer [facility] mL, Route: Active 2011 Medical SUB-Q, Drug Center form: SOLN, ONCE, Priority: STAT, Start date: 09/01/11 10:28:00, Stop date: 09/01/11 10:28:00 Sodium Chloride 1,000 mL, IV No Longer [facility] 0.9% ([place]) IV Rate: 1,000 Active 2011 Medical 1,000 mL ml/hr, Infuse Center over: 1 hr, Route: IV, Dosing Weight 68.18 kg, Total Volume: 1,000, [place] Dose, Priority: STAT, Start date: 09/01/11 9:53:00, Duration: 1 doses or times, Stop date: 09/01/11 10:52:00 morphine Sulfate 4 mg, 1 mL, IVP No Longer Sandeep [facility] Route: IVP, Active 2011 Medical Drug form: Center INJ, ONCE, Start date: 09/01/11 8:28:00, Stop date: 09/01/11 8:28:00 clindamycin 600 mg, 4 mL, IVPB No Longer Sandeep [place] Route: IVPB, Active 2011 Medical Drug form: Center INJ, ONCE, Priority: STAT, Start date: 09/01/11 8:20:00, Stop date: 09/01/11 8:20:00 Sodium Chloride 1,000 mL, IV No Longer [place] 0.9% ([place]) IV Rate: 1,000 Active 2011 Medical 1000 mL ml/hr, Infuse Center over: 1 hr, Route: IV, Dosing Weight 68.182 kg, Total Volume: 1,000, [place] Dose, Priority: STAT, Start date: 09/01/11 5:41:00, Duration: 1 doses or times, Stop date: 09/01/11 6:40:00 ondansetron 4 mg, Route: IVP No Longer [facility] IVP, Drug Active 2011 Medical form: INJ, Center ONCE, Priority: STAT, Start date: 09/01/11 4:06:00, Stop date: 09/01/11 4:06:00 morphine Sulfate 4 mg, Route: IVP No Longer [place] [facility] IVP, ONCE, Active 2011 Medical Priority: Center STAT, Start date: 09/01/11 4:06:00, Stop date: 09/01/11 4:06:00 Sodium Chloride 1,000 mL, IV No Longer [facility] 0.9% ([place]) IV Rate: 1,000 Active 2011 Medical 1000 mL ml/hr, Infuse Center over: 1 hr, Route: IV, Dosing Weight 68.182 kg, Total Volume: 1,000, [place] Dose, Priority: STAT, Start date: 09/01/11 3:42:00, Duration: 1 doses or times, Stop date: 09/01/11 4:41:00 Insulin regular 8 unit, 0.08 IVP No Longer [place] [facility] mL, Route: Active 2011 Medical IVP, Drug Center form: SOLN, ONCE, Priority: STAT, Start date: 09/01/11 3:30:00, Stop date: 09/01/11 3:30:00 Sodium Chloride 1,000 mL, IV No Longer [place] 0.9% ([place]) IV Rate: 1,000 Active 2011 Medical 1,000 mL ml/hr, Infuse Center over: 1 hr, Route: IV, Dosing Weight 68.182 kg, Total Volume: 1,000, [place] Dose, Priority: STAT, Start date: 09/01/11 2:29:00, Duration: 1 doses or times, Stop date: 09/01/11 3:28:00 potassium 40 mEq, 2 PO No Longer [facility] chloride tab, Route: Active 2011 Medical PO, Drug Center form: ERTAB, BID, Start date: 08/23/11 9:00:00, Duration: 2 doses or times, Stop date: 08/23/11 17:00:00 amLODipine 5 mg 5 mg, 1 tab, PO Active [facility] oral tablet PO, Daily, 30 2011 Medical tab, 3, 3, Center Substitution Allowed, TAB lisinopril 20 mg 40 mg, 2 tab, PO Active [facility] oral tablet PO, Daily, 60 2011 Medical tab, 3, 3, Center Substitution Allowed, TAB Novolin N 100 18 Units, SUB-Q Active [facility] units/mL SUB-Q, BID, 3 2011 Medical subcutaneous vial, 3, 3, Center injection Substitution Allowed, SUSP insulin regular 5 Units, SUB-Q Active [facility] human recombinant SUB-Q, TID, 2011 Medical 100 units/mL 30 vial, 3, Center injectable 3, solution Substitution Allowed, before breakfast lunch and dinner, SOLNbefore breakfast lunch and dinner potassium 20 mEq, 100 IVPB No Longer [facility] chloride mL, Route: Active 2011 Medical IVPB, Drug Center form: INJ, Q2H, Start date: 08/23/11 8:00:00, Duration: 2 doses or times, Stop date: 08/23/11 10:00:00 calcium chloride 1 gm, Route: IVPB No Longer [facility] 08/22/ M[facility] IVPB, ONCE, Active 2011 Medical Priority: Center STAT, Start date: 08/23/11 7:28:00, Stop date: 08/23/11 7:28:00 potassium 40 mEq, IV No Longer [facility] Micki chloride Route: IV, Active 2011 Medical ONCE, Start Center date: 08/23/11 6:29:00, Stop date: 08/23/11 6:29:00 potassium 60 mEq, 3 PO No Longer Akmal [facility] chloride 20 mEq tab, Route: Active 2011 Medical oral tablet, PO, Drug [place] extended release form: ERTAB, ONCE, Start date: 08/23/11 6:27:00, Stop date: 08/23/11 6:27:00 magnesium sulfate 2 gm, 50 mL, IVPB No Longer Akmal [facility] Route: IVPB, Active 2011 Medical Drug form: Center INJ, ONCE, Total dose=2 gm, Start date: 08/23/11 6:26:00, Duration: 1 doses or times, Stop date: 08/23/11 6:26:00 magnesium sulfate 2 gm, 50 mL, IVPB No Longer Ahmed [facility] Route: IVPB, 2011 Medical Drug form: Center INJ, ONCE, Total dose=2 gm, Start date: 08/22/11 10:26:00, Duration: 1 doses or times, Stop date: 08/22/11 10:26:00 calcium gluconate 1,000 mg, 10 IVPB No Longer Ahmed [facility] mL, Route: Active 2011 Medical IVPB, ONCE, Center Start date: 08/22/11 10:25:00, Stop date: 08/22/11 10:25:00 potassium 40 mEq, 2 PO No Longer Akmal [facility] chloride 20 mEq tab, Route: Active 2011 Medical oral tablet, PO, Drug Center extended release form: ERTAB, Daily, Start date: 08/22/11 9:00:00, Duration: 30 day, Stop date: 08/22/11 12:00:00 magnesium sulfate 2 gm, 50 mL, IVPB No Longer Akmal [facility] Route: IVPB, Active 2011 Medical Drug form: Center INJ, ONCE, Total dose=2 gm, Start date: 08/22/11 7:26:00, Duration: 1 doses or times, Stop date: 08/22/11 7:26:00 Geodon 120 mg, 3 PO No Longer [facility] cap, Route: Active 2011 Medical PO, Drug Center form: CAP, Bedtime, Start date: 08/21/11 21:00:00, Duration: 30 day, Stop date: 09/19/11 21:00:00 lisinopril 10 mg, 1 tab, PO No Longer [facility] Route: PO, Active 2011 Medical Drug form: Center TAB, ONCE, Start date: 08/21/11 14:06:00, Stop date: 08/21/11 14:06:00 potassium 20 mEq, 100 IVPB No Longer [facility] chloride mL, Route: Active 2011 Medical IVPB, Drug Center form: INJ, ONCE, Start date: 08/21/11 9:12:00, Stop date: 08/21/11 9:12:00 lisinopril 40 mg, 2 tab, PO No Longer Akmal [facility] Route: PO, Active 2011 Medical Drug form: Center TAB, Daily, Start date: 08/21/11 9:00:00, Stop date: 09/19/11 9:00:00 hydrALAZINE 10 mg, 0.5 IVP No Longer [facility] mL, Route: Active 2011 Medical IVP, Drug Center form: INJ, Q6H, PRN Hypertension, Start date: 08/21/11 8:43:00, Duration: 30 day, Stop date: 09/20/11 8:42:00 Geodon 60 mg, 3 cap, PO No Longer [facility] Route: PO, Active 2011 Medical Drug form: Center CAP, ONCE, Start date: 08/20/11 21:00:00, Stop date: 08/20/11 21:00:00 Cogentin 1 mg, 1 tab, PO No Longer [facility] Route: PO, Active 2011 Medical Drug form: Center TAB, Q12H, Start date: 08/20/11 21:00:00, Duration: 30 day, Stop date: 09/19/11 9:00:00 Phenergan 6.25 mg, 0.25 IVPB No Longer [facility] mL, Route: Active 2011 Medical IVPB, Drug Center form: INJ, Q6H, PRN Nausea & Vomiting, Start date: 08/20/11 15:41:00, Stop date: 09/19/11 15:40:00 Compazine 5 mg, 1 tab, PO No Longer Ahmed [facility] Route: PO, Active 2011 Medical Drug form: [place] TAB, Q6H, PRN Nausea & Vomiting, Start date: 08/20/11 14:30:00, Duration: 30 day, Stop date: 09/19/11 14:29:00 Zofran 4 mg, 2 mL, IVP No Longer Ahmed [facility] Route: IVP, Active 2011 Medical Drug form: [place] INJ, Q8H, PRN Nausea, Start date: 08/20/11 11:15:00, Duration: 30 day, Stop date: 09/19/11 11:14:00 insulin 10 unit, SUB-Q No Longer [facility] isophane-NPH Route: SUB-Q, Active 2011 Medical ONCE, Start Center date: 08/20/11 10:00:00, Stop date: 08/20/11 10:00:00 trazodone 100 mg 200 mg, 2 PO Active [facility] oral tablet tab, PO, 2011 Medical Bedtime, 90 Center tab, Substitution Allowed, TAB benztropine 1 mg 1 mg, 1 tab, PO Active [facility] oral tablet PO, BID, 60 2011 Medical tab, Center Substitution Allowed, TAB Geodon 60 mg oral 120 mg, 2 PO Active [facility] capsule cap, PO, 2011 Medical Bedtime, 60 Center cap, Substitution Allowed, CAP insulin 10 unit, SUB-Q No Longer [facility]o [facility] isophane-NPH Route: SUB-Q, Active 2011 Medical Q12H, Start Center date: 08/20/11 9:00:00, Duration: 30 day, Stop date: 09/18/11 21:00:00 Geodon 60 mg, 3 cap, PO No Longer Rivero [facility] Route: PO, Active 2011 Medical Drug form: [place] CAP, BID, Start date: 08/20/11 9:00:00, Duration: 30 day, Stop date: 09/18/11 17:00:00 Effexor XR 75 mg, 1 cap, PO No Longer [facility] Route: PO, Active 2011 Medical Drug form: Center ERCAP, Daily, Start date: 08/20/11 9:00:00, Duration: 30 day, Stop date: 09/18/11 9:00:00 potassium 15 mmol, 5 IV No Longer [facility] phosphate mL, Route: Active 2011 Medical IV, ONCE, Center Start date: 08/20/11 8:30:00, Stop date: 08/20/11 8:30:00 potassium 20 mEq, 100 IVPB No Longer [facility] chloride mL, Route: Active 2011 Medical IVPB, Drug Center form: INJ, Q2H, Total dose=80 mEq, Start date: 08/20/11 8:00:00, Duration: 4 doses or times, Stop date: 08/20/11 14:00:00 potassium 15 mmol, IVPB No Longer [facility] phosphate Route: IVPB, Active 2011 Medical PRN, PRN Center Abnormal Lab Result, Start date: 08/20/11 6:47:00, Duration: 30 day, Stop date: 09/19/11 7:46:00 Insulin regular 6 unit, 0.06 SUB-Q No Longer [facility] mL, Route: Active 2011 Medical SUB-Q, Drug Center form: MARY, ONCE, Start date: 08/20/11 3:38:00, Stop date: 08/20/11 3:38:00 Insulin regular 10 unit, SUB-Q No Longer Akmal [facility] SUB-Q, BID, Active 2011 Medical Substitution Center Allowed insulin 10 unit, SUB-Q No Longer [facility] isophane-NPH SUB-Q, BID, Active 2011 Medical Substitution Center Allowed NS 1,000 mL 1,000 mL, IV No Longer Akmal [facility] Rate: 150 Active 2011 Medical ml/hr, Infuse Center over: 6.7 hr, Route: IV, Total Volume: 1,000, Start date: 08/20/11 3:06:00, Duration: 30 day, Stop date: 09/19/11 3:05:00 insulin aspart 3 unit, 0.03 SUB-Q No Longer [facility] mL, Route: Active 2011 Medical SUB-Q, Drug Center form: SOLN, Bedtime, PRN Blood Glucose Results, Start date: 08/20/11 3:06:00, Duration: 30 day, Stop date: 09/19/11 3:05:00 enoxaparin 40 mg, 0.4 SUB-Q No Longer [facility] mL, Route: Active 2011 Medical SUB-Q, Drug Center form: INJ, Daily, Priority: Routine, Start date: 08/20/11 3:00:00, Duration: 30 day, Stop date: 09/18/11 9:00:00 insulin 18 unit, 0.18 SUB-Q No Longer [facility] isophane-NPH mL, Route: Active 2011 Medical SUB-Q, Drug Center form: INJ, Q12H, Start date: 08/20/11 2:58:00, Stop date: 09/18/11 21:00:00 insulin aspart 2 unit, 0.02 SUB-Q No Longer [facility] mL, Route: Active 2011 Medical SUB-Q, Drug Center form: SOLN, TID-Before Meals, PRN Blood Glucose Results, Start date: 08/20/11 2:48:00, Duration: 30 day, Stop date: 09/19/11 2:47:00 glucagon 1 mg, Route: IM No Longer [facility] IM, Drug Active 2011 Medical form: Center PDR/INJ, PRN, PRN Blood Glucose Results, Start date: 08/20/11 2:48:00, Duration: 30 day, Stop date: 09/19/11 3:47:00 Dextrose 50% 25 gm, 50 mL, IVP No Longer [facility] Syringe Route: IVP, Active 2011 Medical Drug Form: Center INJ, PRN, PRN Blood Glucose Results, Start date: 08/20/11 2:48:00, Duration: 30 day, Stop date: 09/19/11 3:47:00 Insulin regular 3 unit, SUB-Q No Longer [facility] Route: SUB-Q, Active 2011 Medical Bedtime, PRN Center Blood Glucose Results, Start date: 08/20/11 2:48:00, Duration: 30 day, Stop date: 09/19/11 2:47:00 Dextrose 50% 25 gm, 50 ml, IVP No Longer [facility] Syringe Route: IVP, Active 2011 Medical Drug Form: Center INJ, PRN, PRN Blood Glucose Results, Start date: 08/20/11 2:46:00, Duration: 30 day, Stop date: 09/19/11 3:45:00 ondansetron 4 mg, Route: IVP No Longer [facility] IVP, Drug Active 2011 Medical form: INJ, Center ONCE, Priority: STAT, Start date: 08/20/11 1:42:00, Stop date: 08/20/11 1:42:00 GI cocktail 30 ml, Route: PO No Longer [facility] PO, Drug Active 2011 Medical Form: SUSP, Center ONCE, STAT, Start date: 08/19/11 23:12:00, Stop date: 08/19/11 23:12:00 ondansetron 4 mg, Route: PO No Longer [facility] 08/19/ [facility] PO, Drug Active 2011 Medical form: TABDIS, Center ONCE, Priority: STAT, Start date: 08/19/11 23:10:00, Stop date: 08/19/11 23:10:00 Lactated Ringers 1,000 mL, IV No Longer [facility] ([place]) IV 1000 Rate: 1,000 Active 2011 Medical mL ml/hr, Infuse Center over: 1 hr, Route: IV, Total Volume: 1,000, [place] Dose, Priority: STAT, Start date: 08/19/11 23:10:00, Duration: 1 doses or times, Stop date: 08/20/11 0:09:00 Insulin regular 7 unit, 0.07 SUB-Q No Longer [facility] mL, Route: Active 2011 Medical SUB-Q, Drug Center form: SOLN, ONCE, Priority: STAT, Start date: 08/19/11 22:15:00, Stop date: 08/19/11 22:15:00 Geodon 60 mg oral 60 mg, 1 cap, PO No Longer [facility] capsule PO, BID, 180 Active 2011 Medical cap, Center Substitution Allowed, CAP trazodone 300 mg 300 mg, 1 PO No Longer [facility] oral tablet tab, PO, Active 2011 Medical Bedtime, 15 Center tab, Substitution Allowed, TAB Effexor XR 75 mg 75 mg, 1 cap, PO Active [facility] oral capsule, PO, Daily, 2011 Medical extended release cap, Center Substitution Allowed Lactated Ringers 1,000 mL, IV No Longer [facility] IV 1,000 mL Rate: 250 Active 2011 Medical ml/hr, Infuse Center over: 4 hr, Route: IV, Total Volume: 1,000, Priority: STAT, Start date: 08/19/11 17:03:00, Duration: 30 day, Stop date: 09/18/11 17:02:00 Sodium Chloride 100 mL, Rate: IV No Longer [facility] 0.9% (titrate) Titrate, Active 2011 Medical 100 mL + Insulin Route: IV, Center (regular) Titrate Total Volume: IV additive 100 100 ml, unit Duration: 30 day, Stop date: 09/18/11 16:16:00, Replace Every: 24 hr GI cocktail 40 mL, Route: PO No Longer [facility]ooja [facility] PO, Drug Active 2011 Medical Form: SUSP, Center ONCE, STAT, Start date: 08/19/11 16:04:00, Stop date: 08/19/11 16:04:00 Protonix 40 mg, Route: IVP No Longer [facility] IVP, Drug Active 2011 Medical form: INJ, Center ONCE, Start date: 08/19/11 16:04:00, Stop date: 08/19/11 16:04:00 ondansetron 8 mg, Route: IVP No Longer [facility] IVP, Drug Active 2011 Medical form: INJ, Center ONCE, Priority: STAT, Start date: 08/19/11 15:57:00, Stop date: 08/19/11 15:57:00 morphine Sulfate 4 mg, Route: IVP No Longer [facility] IVP, ONCE, Active 2011 Medical Priority: Center STAT, Start date: 08/19/11 15:57:00, Stop date: 08/19/11 15:57:00 Reglan 10 mg, Route: IV No Longer [facility] IV, ONCE, Active 2011 Medical Start date: Center 08/19/11 15:57:00, Stop date: 08/19/11 15:57:00 Lactated Ringers 1,000 mL, IV No Longer [facility] ([facility]) IV 1000 Rate: 1,000 Active 2011 Medical mL ml/hr, Infuse Center over: 1 hr, Route: IV, Total Volume: 1,000, Bolus Dose, Priority: STAT, Start date: 08/19/11 15:12:00, Duration: 1 doses or times, Stop date: 08/19/11 16:11:00 Allergies, Adverse Reactions, Alerts Substance Category Reaction Severity Reaction Status Date Comments Source type Reported codeine Assertion Drug Active [facility] penicillins Assertion Drug Active [facility] Prolex DM Assertion Drug Active [facility] Ambien Assertion Drug Active [facility] lisinopril Assertion angioedema Drug Active [facility] Immunizations Immunization Date Given Site Status Last Updated Comments Source Results Order Name Results Value Reference Date Interpretation Comments Source Range ELECTROLYT AGAP 14.6 meq/L 10.0 - 02 [facility] 20.0 [facility] ELECTROLYT eGFR 33 07/30 Result Comment: The eGFR is calculated using the CKD-EPI formula. In most young, healthy individuals the eGFR will be >90 mL/ min/1.73m2. The eGFR declines with age. An eGFR of 60-89 may be normal in [facility] mL/min/1.7 /2016 some populations, particularly the elderly, for whom the CKD-EPI formula has not been extensively validated. Use of the eGFR is not recommended in the following populations: [address] Individuals with unstable creatinine concentrations, including patients and those with serious co-morbid conditions. Patients with extremes in muscle mass or diet. The data above are obtained from the National Kidney Disease Education Program (NKDEP) which additionally recommends that when the eGFR is used in patients with extremes of body mass index for purposes of drug dosing, the eGFR should be multiplied by the estimated BMI. ELECTROLYT Calcium Lvl 8.3 mg/dL 8.5 - 10.5 07/30 [facility] ELECTROLYT Glucose Lvl 81 mg/dL 70 - 99 07/30 [facility] ELECTROLYT Creatinine 1.95 mg/dL 0.50 - 02 [facility] ES Lvl 1.40 /2016 [facility] ELECTROLYT BUN 55 mg/dL 7 - 22 07/30 [facility] ELECTROLYT CO2 19 meq/L 24 - 32 07/30 [facility] ELECTROLYT Chloride Lvl 110 meq/L 95 - 109 07/30 [facility] [address] [place] [address] ELECTROLYT Sodium Lvl 139 meq/L 135 - 145 07/30 [facility] ELECTROLYT Potassium 4.6 meq/L 3.5 - 5.1 07/30 [facility] Lvl [facility] HEMATOLOGY Lymphocytes 30.4 % 20.0 - 07/30 [facility] 40.0 [facility] HEMATOLOGY Eosinophils 4.5 % 0.0 - 4.0 07/30 [facility] [address] [place] [address] HEMATOLOGY Monocytes 13.7 % 2.0 - 12.0 07/30 [facility] [address] [place] [address] HEMATOLOGY Segs-Bands # 2.6 K/CMM 1.5 - 8.1 07/30 [facility] [address] [place] [address] HEMATOLOGY Basophils 0.7 % 0.0 - 1.0 07/30 [facility] [address] [place] [address] HEMATOLOGY Monocytes # 0.7 K/CMM 0.0 - 0.8 07/30 [facility] [address] [place] [address] HEMATOLOGY Lymphocytes 1.6 K/CMM 1.0 - 5.5 07/30 [facility] HEMATOLOGY Eosinophils 0.2 K/CMM 0.0 - 0.5 07/30 [facility] [address] [place] [address] HEMATOLOGY Segs 50.7 % 45.0 - 07/30 [facility] 75.0 [facility] HEMATOLOGY PB Smear Peripheral 07/30 [facility] Path blood /2016 [facility] smear Center shows hypochromi c normocytic anemia with anisopoiki locytsosis , no increase in schistocyt es, slight polychroma antonia, frequent eccinocyte s, occasional eliptocyte s, and moderate thrombocyt openia.Imp ression:(1 ) No evidence of microangio pathic hemolysis( 2) RBC morphology is suggestive of anemia of chronic disease or iron deficiency anemia, and renal disease.CP T: 95258 HEMATOLOGY Hct 28.1 % 36.0 - 07/30 [facility] 48.0 [facility] HEMATOLOGY RBC 3.39 M/CMM 4.20 - 07/30 [facility] 5.40 /2016 [facility] HEMATOLOGY Hgb 8.9 g/dL 12.0 - 07/30 [place] 16.0 [facility] HEMATOLOGY WBC 5.1 K/CMM 3.7 - 10.4 07/30 [facility] HEMATOLOGY MPV 11.3 fL 7.4 - 10.4 07/30 [facility] HEMATOLOGY Platelet 118 K/CMM 133 - 450 07/30 [facility] HEMATOLOGY MCHC 31.8 g/dL 32.0 - 07/30 [place] 36.0 [facility] HEMATOLOGY RDW 18.0 % 11.5 - 07/30 [place] 14.5 /2016 [facility] HEMATOLOGY MCV 83.0 fL 80.0 - 07/30 [place] 98.0 /2016 [facility] HEMATOLOGY MCH 26.4 pg 27.0 - 07/30 [place] 31.0 [facility] IMMUNOLOGY C3 137 mg/dL 88 - 201 07/30 [facility] IMMUNOLOGY HIV. Negative Negative 07/30 [facility]* [place] (07/30/16 5:32 AM) HEMATOLOGY PB Smear Peripheral 07/29 [facility] blood [facility] smear Center shows hypochromi c normocytic anemia with anisopoiki locytsosis , no increase in schistocyt es, moderate polychroma antonia, frequent eccinocyte s, occasional eliptocyte s, and moderate thrombocyt openia.Imp ression:(1 ) No evidence of microangio pathic hemolysis( 2) RBC morphology is suggestive of anemia of chronic disease or iron deficiency anemia, and renal disease.CP T: 54604 IMMUNOLOGY HIV. Negative Negative 07/29 [facility] [place] (07/29/16 5:05 AM) IMMUNOLOGY C3 92 mg/dL 88 - 201 07/29 [facility] CHEM PANEL eGFR 25 07/28 Result Comment: The eGFR is calculated using the CKD-EPI formula. In most young, healthy individuals the eGFR will be >90 mL/ min/1.73m2. The eGFR declines with age. An eGFR of 60-89 may be normal in [facility] mL/min/1.7 some populations, particularly the elderly, for whom the CKD-EPI formula has not been extensively validated. Use of the eGFR is not recommended in the following populations: [address] Individuals with unstable creatinine concentrations, including patients and those with serious co-morbid conditions. Patients with extremes in muscle mass or diet. The data above are obtained from the National Kidney Disease Education Program (NKDEP) which additionally recommends that when the eGFR is used in patients with extremes of body mass index for purposes of drug dosing, the eGFR should be multiplied by the estimated BMI. CHEM PANEL BUN 55 mg/dL 7 - 22 07/[address] [place] [address] CHEM PANEL CO2 23 meq/L 24 - 32 07/[address] CHEM PANEL Chloride Lvl 109 meq/L 95 - 109 07/[address] CHEM PANEL Glucose Lvl 101 mg/dL 70 - 99 07/[address] CHEM PANEL Potassium 4.0 meq/L 3.5 - 5.1 07/28 [facility] CHEM PANEL Sodium Lvl 141 meq/L 135 - 145 07/[address] CHEM PANEL AGAP 13.0 meq/L 10.0 - 07/28 [facility] 20.0 [facility] CHEM PANEL Calcium Lvl 7.7 mg/dL 8.5 - 10.5 07/[address] CHEM PANEL Creatinine 2.49 mg/dL 0.50 - 07/28 [facility] Lvl 1.40 /2016 [facility] HEMATOLOGY PT 14.8 s 12.0 - 02/ [facility] 14.7 /2016 [facility] HEMATOLOGY PTT 40.8 s 22.9 - 02 [facility] 35.8 [facility] HEMATOLOGY INR 1.14 0.85 - 02 [place] 1.17 [facility] IMMUNOLOGY C3 94 mg/dL 88 - 201 07/28 [facility] HEMATOLOGY Lymphocytes 1.7 K/CMM 1.0 - 5.5 02 [facility] HEMATOLOGY Segs-Bands # 2.7 K/CMM 1.5 - 8.1 07/[address] HEMATOLOGY Eosinophils 0.1 K/CMM 0.0 - 0.5 07/28 [facility] HEMATOLOGY Monocytes # 0.7 K/CMM 0.0 - 0.8 07/[address] HEMATOLOGY Segs 51.3 % 45.0 - 02 [facility] 75.0 /2016 [facility] HEMATOLOGY Lymphocytes 31.6 % 20.0 - 02 [place] 40.0 [facility] HEMATOLOGY Monocytes 14.1 % 2.0 - 12.0 07/28 [facility] HEMATOLOGY Eosinophils 2.6 % 0.0 - 4.0 07/28 [facility] HEMATOLOGY Basophils 0.4 % 0.0 - 1.0 07/28 [facility] [address] [place] [address] HEMATOLOGY PB Smear Peripheral 07/28 [facility] Path blood /2016 [facility] smear Center shows hypochromi c normocytic anemia with anisopoiki locytsosis , no increase in schistocyt es, slight polychroma antonia, a few estella cells, moderate thrombocyt openia.Imp ression: (1) no evidence of microangio pathic hemolysis, (2) RBC morphology is suggestive of anemia of chronic disease or iron deficiency anemia, and renal disease.CP T: 94879 HEMATOLOGY Hct 29.3 % 36.0 - 07/28 [facility] 48.0 [facility] HEMATOLOGY Hgb 9.2 g/dL 12.0 - 07/28 [facility] 16.0 [facility] HEMATOLOGY RBC 3.54 M/CMM 4.20 - 07/28 [facility] 5.40 [facility] HEMATOLOGY WBC 5.3 K/CMM 3.7 - 10.4 07/28 [facility] [address] [place] [address] HEMATOLOGY Platelet 87 K/CMM 133 - 450 07/28 [facility] HEMATOLOGY MCHC 31.4 g/dL 32.0 - 07/28 [facility] 36.0 [facility] HEMATOLOGY RDW 17.9 % 11.5 - 02 14.5 [facility] HEMATOLOGY MPV 10.9 fL 7.4 - 10.4 07/[address] [place] [address] HEMATOLOGY MCH 26.0 pg 27.0 - 02 31.0 [facility] HEMATOLOGY MCV 82.8 fL 80.0 - 07/28 [facility] 98.0 [facility] IMMUNOLOGY HIV. Negative Negative 07/[facility] (07/28/16 4:35 AM) CARDIAC Total CK 190 unit/L 12 - 191 07/27 [facility] CHEM PANEL Calcium Lvl 7.8 mg/dL 8.5 - 10.5 07/27 [facility] CHEM PANEL CO2 21 meq/L 24 - 32 07/27 [facility] CHEM PANEL Sodium Lvl 140 meq/L 135 - 145 07/27 [facility] [address] [place] [address] CHEM PANEL Potassium 3.8 meq/L 3.5 - 5.1 07/27 [facility] CHEM PANEL Chloride Lvl 106 meq/L 95 - 109 07/[address] CHEM PANEL Bili Total 0.4 mg/dL 0.2 - 1.3 07/27 [facility] [address] [place] [address] CHEM PANEL Alk Phos 74 unit/L 39 - 136 07/27 [facility] [address] [place] [address] CHEM PANEL eGFR 19 07/27 Result Comment: The eGFR is calculated using the CKD-EPI formula. In most young, healthy individuals the eGFR will be >90 mL/ min/1.73m2. The eGFR declines with age. An eGFR of 60-89 may be normal in [facility] mL/min/1. some populations, particularly the elderly, for whom the CKD-EPI formula has not been extensively validated. Use of the eGFR is not recommended in the following populations: [address] Individuals with unstable creatinine concentrations, including patients and those with serious co-morbid conditions. Patients with extremes in muscle mass or diet. The data above are obtained from the National Kidney Disease Education Program (NKDEP) which additionally recommends that when the eGFR is used in patients with extremes of body mass index for purposes of drug dosing, the eGFR should be multiplied by the estimated BMI. CHEM PANEL Total 5.2 g/dL 6.4 - 8.4 07/27 [facility] CHEM PANEL ALT 822 unit/L 0 - 65 07/27 [facility] [address] [place] [address] CHEM PANEL AST 205 unit/L 0 - 37 07/27 [facility] [address] [place] [address] CHEM PANEL Albumin Lvl 1.8 g/dL 3.5 - 5.0 07/27 [facility] [address] [place] [address] CHEM PANEL BUN 54 mg/dL 7 - 22 07/[address] CHEM PANEL Glucose Lvl 143 mg/dL 70 - 99 07/[address] CHEM PANEL Creatinine 3.11 mg/dL 0.50 - 02 [facility] Lvl 1.40 [facility] CHEM PANEL B/C Ratio 17 6 - 25 07/[address] CHEM PANEL AGAP 16.8 meq/L 10.0 - 02 20.0 [facility] CHEM PANEL Globulin 3.4 g/dL 2.7 - 4.2 02 [facility] CHEM PANEL A/G Ratio 0.5 0.7 - 1.6 02 [facility] [address] [place] [address] CHEM PANEL Magnesium 2.0 mg/dL 1.8 - 2.4 07/27 [facility] Lvl [facility] CHEM PANEL Phosphorus 3.7 mg/dL 2.5 - 4.5 07/27 [facility] HEMATOLOGY RDW 17.7 % 11.5 - 02 14.5 [facility] HEMATOLOGY MCHC 32.9 g/dL 32.0 - 02 [facility] 36.0 [facility] HEMATOLOGY Hct 25.4 % 36.0 - 02 [facility] 48.0 [facility] HEMATOLOGY MCH 26.4 pg 27.0 - 07/27 [facility] 31.0 [facility] HEMATOLOGY MCV 80.3 fL 80.0 - 07/27 [facility] 98.0 [facility] HEMATOLOGY MPV 11.4 fL 7.4 - 10.4 07/[address] [place] [address] HEMATOLOGY Platelet 74 K/CMM 133 - 450 02 [facility] HEMATOLOGY RBC 3.16 M/CMM 4.20 - 02 [facility] 5.40 [facility] HEMATOLOGY WBC 5.3 K/CMM 3.7 - 10.4 02 [facility] [address] [place] [address] HEMATOLOGY Hgb 8.4 g/dL 12.0 - 02 [facility] 16.0 [facility] HEMATOLOGY Monocytes 14.5 % 2.0 - 12.0 02 [facility] HEMATOLOGY Lymphocytes 29.8 % 20.0 - 02 [facility] 40.0 [facility] HEMATOLOGY Eosinophils 0.1 K/CMM 0.0 - 0.5 02 [facility] HEMATOLOGY Monocytes # 0.8 K/CMM 0.0 - 0.8 02 [facility] [address] [place] [address] HEMATOLOGY Segs-Bands # 2.9 K/CMM 1.5 - 8.1 07/[address] HEMATOLOGY Lymphocytes 1.6 K/CMM 1.0 - 5.5 07/27 [facility] HEMATOLOGY Basophils 0.4 % 0.0 - 1.0 07/27 [facility] HEMATOLOGY Eosinophils 1.2 % 0.0 - 4.0 07/27 [facility] HEMATOLOGY Segs 54.1 % 45.0 - 02 [facility] 75.0 /2016 [facility] SPECIAL Hgb A1C 8.9 % <=5.6 % 07/27 [facility] CHEMISTRY [facility] CARDIAC Total CK 344 unit/L 12 - 191 07/26 [facility] ENZYMES [facility] IMMUNOLOGY IVETTE Positive Negative 07/26 [facility] *ABN* [place] (07/26/16 11:40 AM) IMMUNOLOGY RESIDENTIAL PROGRAM WORKER Ab null <=0.9 AI 07/26 [facility] IMMUNOLOGY Sm Ab null <=0.9 AI 07/26 [facility] IMMUNOLOGY IVETTE Interp Pattern 07/26 [facility] IMMUNOLOGY SS-B (La) Ab null <=0.9 AI 07/26 [facility] IMMUNOLOGY SS-A (Ro) Ab null <=0.9 AI 07/26 [facility] IMMUNOLOGY DNA Ab (DS) Negative Negative 07/26 [facility] (07/26/16 11:40 AM) [place] IMMUNOLOGY IVETTE Titer 1:40 Negative 07/26 [facility] *ABN* [place] (07/26/16 11:40 AM) URINE CHEM U Sodium 21 meq/L 07/26 [facility] HEMATOLOGY INR 1.11 0.85 - 07/26 [place] 1. [facility] HEMATOLOGY PT 14.5 s 12.0 - 07/26 [facility] 14.7 [facility] IMMUNOLOGY Hep A IgM Negative Negative 07/26 [facility] *NA* [place] (07/26/16 8:00 AM) IMMUNOLOGY Hep B Core Negative Negative 07/26 [facility] [place] (07/26/16 8:00 AM) IMMUNOLOGY Hep C Ab Negative 07/26 [facility] [place] (07/26/16 8:00 AM) IMMUNOLOGY Hep Bs Ag Negative Negative 07/26 [facility] [place] (07/26/16 8:00 AM) CHEM PANEL B/C Ratio 17 6 - 25 07/26 [facility] CHEM PANEL ALT 1232 0 - 65 07/26 [facility] unit/L /2016 [facility] CHEM PANEL A/G Ratio 0.5 0.7 - 1.6 07/[address] CHEM PANEL Bili Total 0.3 mg/dL 0.2 - 1.3 07/[address] CHEM PANEL Alk Phos 79 unit/L 39 - 136 07/[address] CHEM PANEL AST 586 unit/L 0 - 37 07/[address] CHEM PANEL Total 5.5 g/dL 6.4 - 8.4 07/26 [facility] Protein [facility] CHEM PANEL Globulin 3.7 g/dL 2.7 - 4.2 07/[address] CHEM PANEL Albumin Lvl 1.8 g/dL 3.5 - 5.0 07/[address] CHEM PANEL Magnesium 2.1 mg/dL 1.8 - 2.4 07/26 [facility] [address] [place] [address] HEMATOLOGY Acanthocyte Slight 07/[address] HEMATOLOGY Rouleaux Present None Seen 07/26 [facility] *ABN* Center (07/26/16 4:42 AM) HEMATOLOGY Anisocyte 1+ None Seen 07/26 [facility]* [place] (07/26/16 4:42 AM) HEMATOLOGY Basophils # 0.1 K/CMM 0.0 - 0.2 07/[address] HEMATOLOGY Large Plt Moderate None Seen 07/26 [facility] [place] (07/26/16 4:42 AM) IMMUNOLOGY C4 42 mg/dL 16 - 47 07/26 [facility] Abdomen Abdomen RUQ EXAM: US ABDOMEN LIMITED 07/26 - [facility] RUQ US US - Medical EXAM: Abdomen RUQ US Center Read by: Chandler Davidson MD Dictated Date/time: 07/26/16 08:50 DATE: 07/26/2016 7:29 AM [employer] SPECIALIST Electronically Signed by: Chandler Davidson MD 07/26/16 08:58 FINAL REPORT INDICATION: Abdominal pain, acute ADDITIONAL INFORMATION: Significantly elevated SGPT SGOT. History of schizophrenia, underlying kidney disease, CHF, diabetes and hypertension. COMPARISON: CT abdomen pelvis 04/15/2013. TECHNIQUE: Multiplanar grayscale and color Doppler ultrasound of the right upper quadrant. FINDINGS: Abdominal aorta and IVC: Visible portions are unremarkable. Liver: Craniocaudal length: 21.7 cm. It previously measured 18.[address] from 04/15/2013. Echogenicity: Normal. Surface nodularity: No nodularity seen. Mass (size and location): None. Portal vein: 1.1 cm in diameter with appropriate directional flow. Bile ducts: Common bile duct diameter: 0.4 cm. Intrahepatic ducts: Normal. Pancreas: The body is unremarkable.. The head and tail are obscured. Gallbladder: There is a small shadowing mobile gallstone. There is a small echogenic focus in the dependent portion measuring 0.7 x 0.6 x 0.7 cm. The gallbladder wall measures 0.4 cm and is mildly thickened with mild pericholecystic fluid. Right kidney: Size: 10.6 cm in length. Hydronephrosis: None. Echogenicity: Normal. Mass/Stone/Cyst (size and location): None. Spleen: Craniocaudal length: 15.3 cm. It previously measured 11.7 cm on the prior CT. Mass or focal lesion (size and location): None. Ascites: None. IMPRESSION: 1. Interval development of moderate hepatosplenomegaly with no focal lesions, coarsened hepatic echotexture or portal vein dilatation. 2. Cholelithiasis with gallbladder wall thickening and pericholecystic fluid may be secondary to underlying hepatocellular disease versus cholecystitis. 3. Small gallbladder wall polyp versus sludge. URINE AND UA Sq Epi None Seen 07/[address] URINE AND UA Waxy Cast 1 /LPF <=0 /LPF 07/[address] URINE AND UA Hyal Cast 4 /LPF 0 - 2 07/[address] URINE AND UA Bacteria Occasional None Seen 07/25 [facility] STOOL /HPF /HPF /2017 [facility] URINE AND UA Mucus Few /LPF None Seen 07/25 [facility] STOOL /LPF /[address] [place] [address] URINE AND UA Amorph Occasional None Seen 07/25 [facility] [place] /HPF /HPF /[address] [place] [address] URINE AND UA Leuk Est Negative Negative 07/[address] ([facility]25[facility] 10:[facility] Nitrite Negative Negative 07/[address] (07/25/16 10:34 AM) [place] URINE AND UA RBC 2 /HPF 0 - 2 07/25 [facility] URINE AND UA WBC 6 /HPF 0 - 5 07/25 [facility] URINE AND UA 2.0 mg/dL 0.1 - 1.0 07/25 [facility] Urobilinogen [facility] URINE AND UA Ketones Negative Negative 07/25 [facility] mg/dL mg/dL [facility] URINE AND UA Glucose 70 mg/dL Negative 07/25 [facility] mg/dL [facility] URINE AND UA Blood Negative Negative 07/25 [facility] (07/25/16 10:34 AM) [place] URINE AND UA Bili Negative Negative 07/25 [facility] *NA* [place] (07/25/16 10:34 AM) URINE AND UA Protein >=300 Negative 07/25 [facility] mg/dL mg/dL [facility] URINE AND UA Spec Grav 1.012 <=1.030 07/25 [facility] URINE AND UA pH 5.5 5.0 - 8.0 07/25 [facility] URINE AND UA Turbidity Slight Clear 07/25 [facility] *ABN* Center (07/25/16 10:34 AM) URINE AND UA Color Dark Yellow Yellow 07/25 [facility] *NA* [place] (07/25/16 10:34 AM) URINE AND UA Gran Cast 9 /LPF 07/25 [facility] [address] [place] [address] URINE CHEM U Sodium 30 meq/L 07/25 [facility] [address] [place] [address] URINE CHEM U Prot/Creat 3.1 07/25 [facility] [address] [place] [address] URINE CHEM U Protein 420.9 07/25 [place] mg/dL [facility] URINE CHEM U Creatinine 136.00 07/25 [place] mg/dL [facility] CHEM PANEL Magnesium 2.0 mg/dL 1.8 - 2.4 07/25 [facility] Lvl [facility] CHEM PANEL Phosphorus 5.2 mg/dL 2.5 - 4.5 07/25 [facility] [address] [place] [address] CARDIAC Troponin-I 0.28 ng/mL 0.00 - 07/24 [facility] ENZYMES 0.[address] [place] [address] CARDIAC Total CK 2616 12 - 191 07/24 [facility] [place] ENZYMES unit/L /2017 [facility] CARDIAC Troponin-T 0.144 0.000 - 07/24 Result [place] ENZYMES ng/mL 0.100 /2017 Comment: [facility] Critical [facility] Result(s) called to Jennifer Reardon at 07/24/2016 13:00 byMIA. Read back OK. CARDIAC CK MB Index 0.2 0.0 - 2.5 07/24 [place] ENZYMES /2017 [facility] CARDIAC CK MB 6.3 ng/mL 0.5 - 3.6 07/24 [place] ENZYMES /2016 [facility] CARDIAC Troponin-I 0.38 ng/mL 0.00 - 07/24 [place] ENZYMES 0.40 /2017 [facility] CARDIAC Troponin-T 0.173 0.000 - 07/24 Result [place] ENZYMES ng/mL 0.100 Comment: Medical Critical Center Result(s) called to Nora Salcedo at 07/24/2016 07:48 byMIA. Read back OK. CARDIAC CK MB Index 0.2 0.0 - 2.5 07/24 [place] ENZYMES /2016 [facility] CARDIAC CK MB 5.6 ng/mL 0.5 - 3.6 07/24 [place] ENZYMES /2016 [facility] CHEM PANEL Phosphorus 5.5 mg/dL 2.5 - 4.5 07/24 [place] /2016 [facility] CARDIAC BNP 701 pg/mL <=100 07/24 [facility] ENZYMES pg/mL /2016 [facility] CARDIAC Troponin-I 0.57 ng/mL 0.00 - 07/24 Result [place] ENZYMES 0.40 /2017 Comment: Medical Critical Center Result(s) called to Chriss Morales at 07/23/2016 23:25 by AC. Read back OK. Chest Chest 1view EXAM: XR CHEST 1 VIEW 07/23 - [facility] 1view DX - Medical This report was dictated by a Manufacturing Teacher/Fellow. I have personally reviewed the images as Center well as the Resident's interpretation and agree with the findings. DATE: 07/23/2016 9:47 PM [employer]IST Read by: Joe Aguirre MD Resident: Joe Aguirre MD Dictated Date/time: 07/23/16 21:58 Electronically Signed by: Gerardo Andrea MD 07/23/16 22:09 FINAL REPORT INDICATION: Chest pain COMPARISON: X-ray chest 1 view performed June 10, 2016 TECHNIQUE: AP chest FINDINGS: No pulmonary or pleural-based abnormality is identified. Pulmonary vascularity is normal. The heart size is stable. No acute bony abnormality is identified. IMPRESSION: 1. No acute radiographic abnormality of the chest. 2. Stable mild cardiomegaly. CARDIAC BNP 526 pg/mL <=100 06/15 [facility] ENZYMES pg/mL [facility] CHEM PANEL Magnesium 2.1 mg/dL 1.8 - 2.4 06/15 [facility] Lvl [facility] CHEM PANEL Glucose Lvl 117 mg/dL 70 - 99 06/15 [facility] CHEM PANEL BUN 41 mg/dL 7 - 06/15 [facility] CHEM PANEL Creatinine 2.00 mg/dL 0.50 - 06/15 [facility] Lvl 1.40 [facility] CHEM PANEL Calcium Lvl 9.0 mg/dL 8.5 - 10.5 06/15 [facility]2015 [facility] CHEM PANEL Chloride Lvl 102 meq/L 95 - 109 06/15 [facility] CHEM PANEL CO2 33 meq/L 24 - 32 06/15 [facility] CHEM PANEL Sodium Lvl 144 meq/L 135 - 145 06/15 [facility] CHEM PANEL Potassium 4.0 meq/L 3.5 - 5.1 06/15 [facility] CHEM PANEL eGFR 32 06/15 Result Comment: The eGFR is calculated using the CKD-EPI formula. In most young, healthy individuals the eGFR will be >90 mL/ min/1.73m2. The eGFR declines with age. An eGFR of 60-89 may be normal in [facility] mL/min/1. some populations, particularly the elderly, for whom the CKD-EPI formula has not been extensively validated. Use of the eGFR is not recommended in the following populations: [address] Individuals with unstable creatinine concentrations, including patients and those with serious co-morbid conditions. Patients with extremes in muscle mass or diet. The data above are obtained from the National Kidney Disease Education Program (NKDEP) which additionally recommends that when the eGFR is used in patients with extremes of body mass index for purposes of drug dosing, the eGFR should be multiplied by the estimated BMI. CHEM PANEL AGAP 13.0 meq/L 10.0 - 06/15 [facility] 20.0 [facility] CHEM PANEL Phosphorus 4.6 mg/dL 2.5 - 4.5 06/15 [facility] HEMATOLOGY RBC 3.68 M/CMM 4.20 - 06/15 [place] 5.40 /2015 [facility] HEMATOLOGY Hgb 9.9 g/dL 12.0 - 06/15 [place] 16.0 [facility] HEMATOLOGY MCH 26.8 pg 27.0 - 06/15 31.0 [facility] HEMATOLOGY MCHC 34.2 g/dL 32.0 - 06/15 [place] 36.0 [facility] HEMATOLOGY MCV 78.3 fL 80.0 - 06/15 [place] 98.0 [facility] HEMATOLOGY Hct 28.8 % 36.0 - 06/15 [facility] 48.0 [facility] HEMATOLOGY Platelet 191 K/CMM 133 - 450 06/15 [facility] HEMATOLOGY MPV 9.5 fL 7.4 - 10.4 06/15 [facility] HEMATOLOGY RDW 15.3 % 11.5 - 06/15 [facility] 14.5 [facility] HEMATOLOGY WBC 5.6 K/CMM 3.7 - 10.4 06/15 [facility] HEMATOLOGY Eosinophils 0.5 K/CMM 0.0 - 0.5 06/15 [facility] HEMATOLOGY Microcyte 1+ None Seen 06/15 [facility] (06/15/16 4:22 AM) HEMATOLOGY Basophils # 0.1 K/CMM 0.0 - 0.2 06/15 [facility] HEMATOLOGY Lymphocytes 33.5 % 20.0 - 06/15 [place] 40.0 [facility] HEMATOLOGY Segs 47.6 % 45.0 - 06/15 [place] 75.0 [facility] HEMATOLOGY Monocytes 8.4 % 2.0 - 12.0 06/15 [facility] HEMATOLOGY Eosinophils 9.4 % 0.0 - 4.0 06/15 [facility] HEMATOLOGY Segs-Bands # 2.6 K/CMM 1.5 - 8.1 06/15 2015 [facility] HEMATOLOGY Lymphocytes 1.9 K/CMM 1.0 - 5.5 06/15 [facility] HEMATOLOGY Basophils 1.1 % 0.0 - 1.0 06/15 2015 [facility] HEMATOLOGY Monocytes # 0.5 K/CMM 0.0 - 0.8 06/15 [facility] CHEM PANEL Phosphorus 4.8 mg/dL 2.5 - 4.5 06/14 [facility] CHEM PANEL Magnesium 2.0 mg/dL 1.8 - 2.4 06/14 [facility] CHEM PANEL eGFR 32 06/14 Result Comment: The eGFR is calculated using the CKD-EPI formula. In most young, healthy individuals the eGFR will be >90 mL/ min/1.73m2. The eGFR declines with age. An eGFR of 60-89 may be normal in [facility] mL/min/1.7 some populations, particularly the elderly, for whom the CKD-EPI formula has not been extensively validated. Use of the eGFR is not recommended in the following populations: [address] Individuals with unstable creatinine concentrations, including patients and those with serious co-morbid conditions. Patients with extremes in muscle mass or diet. The data above are obtained from the National Kidney Disease Education Program (NKDEP) which additionally recommends that when the eGFR is used in patients with extremes of body mass index for purposes of drug dosing, the eGFR should be multiplied by the estimated BMI. CHEM PANEL Chloride Lvl 101 meq/L 95 - 109 06/14 [facility] CHEM PANEL Potassium 4.4 meq/L 3.5 - 5.1 06/14 [facility] CHEM PANEL BUN 37 mg/dL 7 - 22 06/14 [facility]2015 [facility] CHEM PANEL Glucose Lvl 119 mg/dL 70 - 99 06/14 [facility] CHEM PANEL Creatinine 2.00 mg/dL 0.50 - 06/14 [facility] Lvl 1.40 [facility] CHEM PANEL Sodium Lvl 142 meq/L 135 - 145 06/14 [facility] CHEM PANEL Calcium Lvl 8.7 mg/dL 8.5 - 10.5 06/14 [facility] CHEM PANEL CO2 32 meq/L 24 - 32 06/14 [facility]2015 [facility] CHEM PANEL AGAP 13.4 meq/L 10.0 - 06/14 [facility] 20.0 [facility] HEMATOLOGY Eosinophils 10.3 % 0.0 - 4.0 06/14 [facility] HEMATOLOGY Basophils # 0.1 K/CMM 0.0 - 0.2 06/14 [facility] HEMATOLOGY Eosinophils 0.5 K/CMM 0.0 - 0.5 06/14 [place] # /2015 [facility] HEMATOLOGY Monocytes # 0.5 K/CMM 0.0 - 0.8 06/14 [facility] HEMATOLOGY Segs-Bands # 2.1 K/CMM 1.5 - 8.1 06/14 [facility] HEMATOLOGY Basophils 1.2 % 0.0 - 1.0 06/14 [facility] HEMATOLOGY Lymphocytes 1.9 K/CMM 1.0 - 5.5 06/14 [place] # /2015 [facility] HEMATOLOGY Segs 42.5 % 45.0 - 06/14 [place] 75.0 [facility] HEMATOLOGY Lymphocytes 37.0 % 20.0 - 06/14 [place] 40.0 [facility] HEMATOLOGY Monocytes 9.0 % 2.0 - 12.0 06/14 [facility] HEMATOLOGY MPV 9.8 fL 7.4 - 10.4 06/14 [facility] HEMATOLOGY WBC 5.0 K/CMM 3.7 - 10.4 06/14 [facility] HEMATOLOGY RBC 3.57 M/CMM 4.20 - 06/14 [place] 5.40 [facility] HEMATOLOGY Hgb 9.4 g/dL 12.0 - 06/14 [place] 16.0 [facility] HEMATOLOGY Hct 28.5 % 36.0 - 06/14 [place] 48.0 [facility] HEMATOLOGY Platelet 183 K/CMM 133 - 450 06/14 [facility] HEMATOLOGY MCV 79.9 fL 80.0 - 06/14 [place] 98.0 [facility] HEMATOLOGY MCH 26.3 pg 27.0 - 06/14 [place] 31.0 [facility] HEMATOLOGY MCHC 33.0 g/dL 32.0 - 06/14 [place] 36.0 [facility] HEMATOLOGY RDW 15.9 % 11.5 - 06/14 [place] 14.5 [facility] URINE CHEM U Prot/Creat 6.9 06/13 [facility] URINE CHEM U Creatinine 19.30 06/13 [place] mg/dL [facility] URINE CHEM U Protein 133.1 06/13 [place] mg/dL [facility] HEMATOLOGY MPV 9.7 fL 7.4 - 10.4 06/13 [facility] HEMATOLOGY Platelet 184 K/CMM 133 - 450 06/13 [facility] HEMATOLOGY RDW 15.9 % 11.5 - 06/13 [place] 14.5 [facility] HEMATOLOGY MCV 79.3 fL 80.0 - 06/13 [place] 98.0 /2015 [facility] HEMATOLOGY MCHC 33.0 g/dL 32.0 - 06/13 [place] 36.0 [facility] HEMATOLOGY MCH 26.2 pg 27.0 - 06/13 [place] 31.0 /2015 [facility] HEMATOLOGY Hct 29.4 % 36.0 - 06/13 [place] 48.0 [facility] HEMATOLOGY Hgb 9.7 g/dL 12.0 - 06/13 [place] 16.0 [facility] HEMATOLOGY RBC 3.70 M/CMM 4.20 - 06/13 [place] 5.40 /2015 [facility] HEMATOLOGY WBC 5.7 K/CMM 3.7 - 10.4 06/13 [facility] HEMATOLOGY Basophils # 0.1 K/CMM 0.0 - 0.2 06/13 [facility] HEMATOLOGY Lymphocytes 2.2 K/CMM 1.0 - 5.5 06/13 [facility] /2015 [facility] HEMATOLOGY Eosinophils 0.5 K/CMM 0.0 - 0.5 06/13 [facility] /2015 [facility] HEMATOLOGY Monocytes # 0.5 K/CMM 0.0 - 0.8 06/13 [facility] HEMATOLOGY Basophils 1.1 % 0.0 - 1.0 06/13 [facility] HEMATOLOGY Segs-Bands # 2.3 K/CMM 1.5 - 8.1 06/13 [facility] HEMATOLOGY Eosinophils 9.5 % 0.0 - 4.0 06/13 [facility] HEMATOLOGY Monocytes 9.0 % 2.0 - 12.0 06/13 [facility] HEMATOLOGY Lymphocytes 38.9 % 20.0 - 06/13 [place] 40.0 [facility] HEMATOLOGY Segs 41.5 % 45.0 - 06/13 [place] 75.0 /2015 [facility] CHEM PANEL Magnesium 1.7 mg/dL 1.8 - 2.4 06/13 [facility] CHEM PANEL Phosphorus 4.2 mg/dL 2.5 - 4.5 06/13 [facility] ELECTROLYT AGAP 14.3 meq/L 10.0 - 06/13 [facility] 20.0 [facility] ELECTROLYT eGFR 41 06/13 Result Comment: The eGFR is calculated using the CKD-EPI formula. In most young, healthy individuals the eGFR will be >90 mL/ min/1.73m2. The eGFR declines with age. An eGFR of 60-89 may be normal in [facility] mL/min/1.7 some populations, particularly the elderly, for whom the CKD-EPI formula has not been extensively validated. Use of the eGFR is not recommended in the following populations: [address] Individuals with unstable creatinine concentrations, including patients and those with serious co-morbid conditions. Patients with extremes in muscle mass or diet. The data above are obtained from the National Kidney Disease Education Program (NKDEP) which additionally recommends that when the eGFR is used in patients with extremes of body mass index for purposes of drug dosing, the eGFR should be multiplied by the estimated BMI. ELECTROLYT Chloride Lvl 103 meq/L 95 - 109 06/13 [facility] ELECTROLYT Calcium Lvl 8.5 mg/dL 8.5 - 10.5 06/13 [facility] ELECTROLYT CO2 32 meq/L 24 - 06/13 [facility] ELECTROLYT Glucose Lvl 173 mg/dL 70 - 99 06/13 [facility] ELECTROLYT BUN 37 mg/dL - 06/13 [facility] ELECTROLYT Creatinine 1.63 mg/dL 0.50 - 06/13 [facility] Lvl 1.40 [facility] ELECTROLYT Potassium 4.3 meq/L 3.5 - 5.1 06/13 [facility] Lvl [facility] ELECTROLYT Sodium Lvl 145 meq/L 135 - 145 06/13 [facility] CHEM PANEL Ammonia 48.0 <=45.0 06/11 [facility] umol/L uMol/L [facility] IMMUNOLOGY IVETTE Interp Pattern 06/11 [facility] [place] IMMUNOLOGY IVETTE Titer 1:40 Negative 06/11 [facility] *ABN* Center (06/11/16 8:56 AM) IMMUNOLOGY Hep Bs Ag Negative Negative 06/11 [facility] [place] (06/11/16 8:56 AM) IMMUNOLOGY Hep C Ab Negative 06/11 [facility] [place] (06/11/16 8:56 AM) IMMUNOLOGY Hep B Core Negative Negative 06/11 [facility] [place] (06/11/16 8:56 AM) IMMUNOLOGY Hep A IgM Negative Negative 06/11 [facility] [place] (06/11/16 8:56 AM) IMMUNOLOGY HIV Ag/Ab Negative Negative 06/11 [facility]th [facility] [place] (06/11/16 8:56 AM) IMMUNOLOGY IVETTE Positive Negative 06/11 [facility] [place] (06/11/16 8:56 AM) CHEM PANEL Bili Total 0.1 mg/dL 0.2 - 1.3 06/11 [facility] CHEM PANEL Total 5.2 g/dL 6.4 - 8.4 06/11 [facility] CHEM PANEL Albumin Lvl 1.6 g/dL 3.5 - 5.0 06/11 [facility] CHEM PANEL B/C Ratio 20 6 - 25 06/11 [facility]2015 [facility] CHEM PANEL Globulin 3.6 g/dL 2.7 - 4.2 06/11 [facility]2015 [facility] CHEM PANEL A/G Ratio 0.4 0.7 - 1.6 06/11 [facility]2015 [facility] CHEM PANEL Alk Phos 74 unit/L 39 - 136 06/11 [facility]2015 [facility] CHEM PANEL ALT 14 unit/L 0 - 65 06/11 [facility] CHEM PANEL AST 13 unit/L 0 - 37 06/11 [facility] HEMATOLOGY INR 1.06 0.85 - 06/11 [place] 1.17 [facility] HEMATOLOGY PT 14.0 s 12.0 - 06/11 [facility] 14.7 [facility] HEMATOLOGY PTT 36.4 s 22.9 - 06/11 [facility] 35.8 [facility] SPECIAL Hgb A1C 10.5 % <=5.6 % 06/11 [facility] CHEMISTRY [facility] Retroperit Retroperiton EXAM: US RENAL 06/11 - [facility] villa eal Complete - [facility] Complete US This report was dictated by a Manufacturing Teacher/Fellow. I have personally reviewed the images as Center US well as the Resident's interpretation and agree with the findings. DATE: 06/11/2016 6:53 AM [employer] Read by: Attila Molina MD Resident: Attila Molina MD Dictated Date/time: 06/11/16 09:41 Electronically Signed by: Gary Marina MD 06/11/16 16:37 FINAL REPORT INDICATION: Abdominal distention/proteinuria CT of the abdomen and pelvis with contrast April 15, 2013 ADDITIONAL INFORMATION: None. COMPARISON: None. TECHNIQUE: Multiplanar grayscale and color Doppler ultrasound images of the kidneys and urinary bladder. DISCUSSION: Right kidney: Hydronephrosis: None. Size: 10.6 x 5.3 x 5.1 cm Echogenicity: Normal. Parenchymal thickness and contour: Normal. Calculi: None. Cysts: None. Masses: None. Left kidney: Hydronephrosis: None. Size: 9.8 x 4.8 x 5 cm Echogenicity: Normal. Parenchymal thickness and contour: Normal. Calculi: None. Cysts: None. Masses: None. Bladder: Normal. IMPRESSION: 1. No sonographic abnormalities seen in the kidneys. No hydronephrosis CARDIAC CK MB Index 1.8 0.0 - 2.5 06/11 [facility]ZYMES /2015 [facility] CARDIAC CK MB 2.9 ng/mL 0.5 - 3.6 06/11 [facility] ENZYMES [facility] CARDIAC Troponin-T 0.061 0.000 - 06/11 [facility] ENZYMES ng/mL 0.100 [facility] CARDIAC Total CK 159 unit/L 12 - 191 06/11 [facility] ENZYMES [facility] CARDIAC Troponin-I null 0.00 - 06/11 [facility] EN[facility]YMES 0.40 [facility] CHEM PANEL Bili Total 0.2 mg/dL 0.2 - 1.3 06/11 [facility] CHEM PANEL Bili Direct 0.1 mg/dL 0.0 - 0.3 06/11 [place] /2015 [facility] CHEM PANEL Bili 0.1 mg/dL 0.0 - 1.0 06/11 [facility] Indirect /2015 [facility] CHEM PANEL Total 5.7 g/dL 6.4 - 8.4 06/11 [facility] Protein [facility] CHEM PANEL A/G Ratio 0.5 0.7 - 1.6 06/11 [facility] CHEM PANEL Albumin Lvl 1.8 g/dL 3.5 - 5.0 06/11 [facility] CHEM PANEL Globulin 3.9 g/dL 2.7 - 4.2 06/11 [facility] CHEM PANEL Alk Phos 99 unit/L 39 - 136 06/11 [facility] CHEM PANEL AST 21 unit/L 0 - 37 06/11 [facility] CHEM PANEL ALT 17 unit/L 0 - 65 06/11 [facility] DRUG UDS Note See Note 06/11 [place] [facility] *NA* Center (06/10/16 8:08 PM) DRUG U Propoxyph Negative Negative 06/11 [place] SCREEN [facility] [place] (06/10/16 8:08 PM) DRUG U Opiate Scr Negative Negative 06/11 [place] [facility] [place] (06/10/16 8:08 PM) DRUG U Methadone Negative Negative 06/11 [place] SCREEN [facility] [place] (06/10/16 8:08 PM) DRUG U Phencyc Negative Negative 06/11 [place] SCREEN Scr [facility] *NA* [place] (06/10/16 8:08 PM) DRUG U Cannab Scr Negative Negative 06/11 [place] [facility] [place] (06/10/16 8:08 PM) DRUG U Amph Scr Negative Negative 06/11 [place] [facility] [place] (06/10/16 8:08 PM) DRUG U Kelly Scr Negative Negative 06/11 [place] [facility] [place] (06/10/16 8:08 PM) DRUG U Benzodia Negative Negative 06/11 [place] SCREEN Scr [facility] *NA* [place] (06/10/16 8:08 PM) DRUG U Cocaine Negative Negative 06/11 [place] SCREEN Scr [facility] [place] (06/10/16 8:08 PM) LIPIDS LDL 75 mg/dL <=99 mg/dL 06/11 [place] (Calculated) [facility] LIPIDS VLDL 27 06/11 [facility] LIPIDS Chol 133 mg/dL <=199 06/11 [place] mg/dL [facility] LIPIDS Trig 133 mg/dL <=149 06/11 [facility] mg/dL [facility] LIPIDS CHD Risk 4.29 3.90 - 06/11 [place] 5.80 [facility] LIPIDS HDL 31 mg/dL >=61 mg/dL 06/11 [facility] URINE AND UA <=1.0 0.1 - 1.0 06/11 [facility] Urobilinogen mg/dL [facility] URINE AND UA Ketones Negative Negative 06/11 [facility] mg/dL mg/dL [facility] URINE AND UA Glucose 300 mg/dL Negative 06/11 [facility] mg/dL [facility] URINE AND UA Protein >=300 Negative 06/11 [facility] mg/dL mg/dL [facility] URINE AND UA pH 6.0 5.0 - 8.0 06/11 [facility] URINE AND UA Nitrite Negative Negative 06/11 [facility] (06/10/16 8:08 PM) [place] URINE AND UA Blood Trace Negative 06/11 [facility] *ABN* Center (06/10/16 8:08 PM) URINE AND UA Bili Negative Negative 06/11 [facility] *NA* Center (06/10/16 8:08 PM) URINE AND UA Mucus Few /LPF None Seen 06/11 [facility] STOOL /LPF [facility] URINE AND UA RBC 4 /HPF 0 - 2 06/11 [facility] URINE AND UA Sq Epi Few /LPF Few /LPF 06/11 [facility] URINE AND UA WBC 5 /HPF 0 - 5 06/11 [facility] URINE AND UA Leuk Est Small Negative 06/11 [facility] *ABN* Center (06/10/16 8:08 PM) URINE AND UA Hyal Cast 1 /LPF 0 - 2 06/[address] URINE AND UA Spec Grav 1.009 <=1.030 06/11 [facility] URINE AND UA Color Yellow Yellow 06/11 [facility] *NA* Center (06/10/16 8:08 PM) URINE AND UA Turbidity Clear Clear 06/11 [facility] (06/10/16 8:08 PM) Center URINE CHEM U Preg Negative Negative 06/11 [facility] (06/10/16 8:08 PM) [place] URINE CHEM U Protein 375.4 06/11 [facility] mg/dL [facility] URINE CHEM U Prot/Creat 5.4 06/11 [facility] URINE CHEM U Creatinine 69.80 06/11 [facility] mg/dL [facility] CARDIAC BNP 1135 pg/mL <=100 06/10 [facility] ENZYM[facility] pg/mL /2015 [facility] CARDIAC Troponin-I null 0.00 - 06/10 [facility] ENZYMES 0.40 /2015 [facility] Chest Chest 1view EXAM: XR CHEST 1 VIEW 06/10 - [facility] 1view DX DX /2015 - [facility] This report was dictated by a Manufacturing Teacher/Fellow. I have personally reviewed the images as Center well as the Resident's interpretation and agree with the findings. DATE: 06/10/2016 1108 hours Read by: Zan Farrell MD Resident: Zan Farrell MD Dictated Date/time: 06/10/16 11:25 Electronically Signed by: John Davis MD 06/10/16 11:44 FINAL REPORT INDICATION: Dyspnea COMPARISON: None available TECHNIQUE: AP chest FINDINGS: Lines and tubes: None. Lungs and pleura: No pulmonary or pleural based abnormality is identified. Heart and mediastinum: Prominence of the cardiac silhouette may represent mild cardiomegaly or could be secondary to technique.. The mediastinal contours are normal. Bones: No acute bony abnormality is identified. IMPRESSION: 1. No acute cardiopulmonary abnormality. 2. Prominence of cardiac silhouette may represent cardiomegaly or could be secondary to technique. CHEM PANEL Lactic Acid 0.9 mmol/L 0.5 - 2.2 06/26 [facility] WB [facility] TOXICOLOGY Valproic 10 ug/ml 50 - 100 06/26 [facility] Acid Lvl [facility] ENDOCRINOL hCG Tot 1 mIU/mL 06/26 3Interpretive Data: Reference Range: [facility] OGY Male 0 - 5 mIU/mL [facility] Non- Female 0 - 5 mIU/mL [place] Note: hCG result should be used in conjunction with symptoms, results of other tests, and clinical impressions. Weeks of Gestation hCG (mIU/mL) 3 6 - 71 4 10-750 5 217 - 7,138 6 158 -31,795 7 3,697 - 163,563 8 32,065 - 149,571 9 63,803 - 151,410 10 46,506 - 186,977 11 27,832 - 210,612 14 13,950 - 62,530 15 12,039 - 70,971 16 9,040 - 56,451 17 8,175 - 55,868 18 8,099 - 58,176 CHEM PANEL Albumin Lvl 3.2 g/dL 3.5 - 5.0 06/26 [facility] CHEM PANEL Total 6.6 g/dL 6.4 - 8.4 06/26 [facility] CHEM PANEL Bili Total 0.6 mg/dL 0.2 - 1.3 06/26 [facility] CHEM PANEL Alk Phos 59 unit/L 39 - 136 06/26 [facility] CHEM PANEL AST 11 unit/L 0 - 37 06/26 [facility] CHEM PANEL ALT 17 unit/L 0 - 65 06/[address] CHEM PANEL eGFR 99 06/26 1Result Comment: The eGFR is calculated using the CKD-EPI formula. In most young, healthy individuals the eGFR will be >90 mL/ min/1.73m2. The eGFR declines with age. An eGFR of 60-89 may be normal in [facility] mL/min/1.7 /2014 some populations, particularly the elderly, for whom the CKD-EPI formula has not been extensively validated. Use of the eGFR is not recommended in the following populations: [address] Individuals with unstable creatinine concentrations, including patients and those with serious co-morbid conditions. Patients with extremes in muscle mass or diet. The data above are obtained from the National Kidney Disease Education Program (NKDEP) which additionally recommends that when the eGFR is used in patients with extremes of body mass index for purposes of drug dosing, the eGFR should be multiplied by the estimated BMI. CHEM PANEL Glucose Lvl 314 mg/dL 70 - 99 06/26 2Interpretive Data: Adult reference range values reflect the clinical guidelines of the [place] [employer]. [facility] CHEM PANEL Potassium 3.4 meq/L 3.5 - 5.1 06/26 [facility] CHEM PANEL BUN 11 mg/dL 7 - 22 06/[address] CHEM PANEL Creatinine 0.8 mg/dL 0.5 - 1.4 06/26 [facility] CHEM PANEL Sodium Lvl 134 meq/L 135 - 145 06/[address] CHEM PANEL Chloride Lvl 94 meq/L 95 - 109 06/[address] CHEM PANEL Calcium Lvl 9.1 mg/dL 8.5 - 10.5 06/[address] CHEM PANEL CO2 24 meq/L 24 - 32 06/[address] CHEM PANEL A/G Ratio 0.9 0.7 - 1.6 06/[address] CHEM PANEL Globulin 3.4 g/dL 2.0 - 4.0 06/[address] CHEM PANEL B/C Ratio 14 6 - 25 06/[address] CHEM PANEL AGAP 19.4 meq/L 10.0 - 06/26 [facility] 20.0 [facility] CHEM PANEL Lipase Lvl 81 unit/L 73 - 393 06/[address] HEMATOLOGY Large Plt Slight 06/26 [facility] [address] [place] [address] HEMATOLOGY Basophils # 0.0 K/CMM 0.0 - 0.2 06/[address] HEMATOLOGY Anisocyte 1+ None Seen 06/26 [facility] [address] [place] [address]* [place] (06/26/14 5:21 AM) HEMATOLOGY Monocytes # 0.6 K/CMM 0.0 - 0.8 06/26 [facility] [address] [place] [address] HEMATOLOGY Eosinophils 0.1 K/CMM 0.0 - 0.5 06/26 [facility] HEMATOLOGY Lymphocytes 2.5 K/CMM 1.0 - 5.5 06/26 [facility] HEMATOLOGY Segs 63.3 % 45.0 - 06/26 [facility] 75.0 [facility] HEMATOLOGY Segs-Bands # 5.6 K/CMM 1.5 - 8.1 06/[address] HEMATOLOGY Basophils 0.0 % 0.0 - 1.0 06/[address] HEMATOLOGY Eosinophils 0.9 % 0.0 - 4.0 06/26 [facility] HEMATOLOGY Monocytes 7.0 % 2.0 - 12.0 06/26 [facility] HEMATOLOGY Lymphocytes 28.8 % 20.0 - 06/26 40.0 /2014 [facility] HEMATOLOGY WBC 8.8 K/CMM 3.7 - 10.4 06/26 [facility] HEMATOLOGY RBC 5.19 M/CMM 4.20 - 06/26 5.40 /2014 [facility] HEMATOLOGY Hgb 14.4 g/dL 12.0 - 06/26 [facility] 16.0 /2014 [facility] HEMATOLOGY Hct 43.1 % 36.0 - 06/26 [facility] 48.0 [facility] HEMATOLOGY MCV 83.1 fL 80.0 - 06/26 [facility] 98.0 [facility] HEMATOLOGY MCH 27.8 pg 27.0 - 06/26 [facility] 31.0 /2014 [facility] HEMATOLOGY RDW 13.1 % 11.5 - 06/26 [facility] 14.5 [facility] HEMATOLOGY MCHC 33.5 g/dL 32.0 - 06/26 36.0 [facility] HEMATOLOGY Platelet 201 K/CMM 133 - 450 06/26 [facility] HEMATOLOGY MPV 10.4 fL 7.4 - 10.4 06/26 [facility] URINALYSIS UA [place] Yeast Occasional None Seen 04/15 ABN /HPF [facility] URINALYSIS UA Mucus Few /LPF None Seen 04/15 Normal [facility] URINALYSIS UA Sq Epi Moderate Few 04/15 ABN MH /LPF [facility] URINALYSIS Micro? Performed 04/15 Normal [facility] (04/14/2013 23:48:55) URINALYSIS UA WBC 0-2 /HPF None Seen 04/15 [facility] Center URINALYSIS UA Bacteria Occasional None Seen 04/15 Normal /HPF [facility] URINALYSIS UA Glucose 500 mg/dL Negative 04/15 ABN [facility] URINALYSIS UA Bili Negative Negative 04/15 [facility] *NA* (04/14/2013 23:48:55) URINALYSIS UA Ketones Trace Negative 04/15 ABN [facility] *ABN* (04/14/2013 23:48:55) URINALYSIS UA Blood Negative Negative 04/15 Normal [facility] (04/14/2013 23:48:55) URINALYSIS UA 0.2 EU/dL 0.1 - 1.0 04/15 Normal Urobilinogen [facility] URINALYSIS UA Nitrite Negative Negative 04/15 Normal [facility] (04/14/2013 23:48:55) URINALYSIS UA Leuk Est Negative Negative 04/15 Normal [facility] (04/14/2013 23:48:55) URINALYSIS UA Turbidity Clear Clear 04/15 Normal [facility] (04/14/2013 23:48:55) URINALYSIS UA Color Yellow Yellow 04/15 [facility] *NA* (04/14/2013 23:48:55) URINALYSIS UA pH 7.0 5.0 - 8.0 04/15 Normal [facility] URINALYSIS UA Spec Grav 1.025 <=1.030 04/15 Normal [facility] URINALYSIS UA Protein Trace Negative 04/15 ABN [facility] *ABN* (04/14/2013 23:48:55) CHEMISTRY S Preg Negative Negative 04/15 [facility] *NA* (04/14/2013 23:28:00) CHEMISTRY Lipase Lvl 233 unit/L 73 - 393 04/15 Normal [facility] CHEMISTRY Globulin 4.1 g/dL 2.0 - 4.0 04/15 HI [facility] CHEMISTRY AGAP 10.5 meq/L 10. - 04/15 Normal 20.0 [facility] CHEMISTRY B/C Ratio 6 6 - 25 04/15 Normal [facility] CHEMISTRY A/G Ratio 0.7 0.7 - 1.6 04/15 Normal [facility] CHEMISTRY eGFR 130 04/15 1Result Comment: The eGFR is calculated using the CKD-EPI formula. In most young, healthy individuals the eGFR will be >90 mL/ min/1.73m2. The eGFR declines with age. An eGFR of 60-89 may be normal in mL/min/1.7 /2012 some populations, particularly the elderly, for whom the CKD-EPI formula has not been extensively validated. Use of the eGFR is not recommended in the following populations: [facility] 3m2 Individuals with unstable creatinine concentrations, including patients and those with serious co-morbid conditions. Patients with extremes in muscle mass or diet. The data above are obtained from the National Kidney Disease Education Program (NKDEP) which additionally recommends that when the eGFR is used in patients with extremes of body mass index for purposes of drug dosing, the eGFR should be multiplied by the estimated BMI. CHEMISTRY Albumin Lvl 2.9 g/dL 3.5 - 5.0 04/15 LOW [facility] CHEMISTRY ASPARTATE 20 unit/L 0 - 37 04/15 Normal TRANSAMINASE [facility] CHEMISTRY Bili Total 0.5 mg/dL 0.2 - 1.3 04/15 Normal [facility] CHEMISTRY Alk Phos 89 unit/L 39 - 136 04/15 Normal [facility] CHEMISTRY ALANINE 11 unit/L 0 - 65 04/15 Normal AMINOTRANS [facility] RAS CHEMISTRY Creatinine 0.5 mg/dL 0.5 - 1.4 04/15 Normal Lvl [facility] CHEMISTRY BUN 3 mg/dL 7 - 04/15 LOW [facility] CHEMISTRY Glucose Lvl 255 mg/dL 70 - 99 04/15 HI 2Interpretive Data: Adult reference range values reflect the clinical guidelines of the [place] [employer]. [facility] CHEMISTRY Total 7.0 g/dL 6.4 - 8.4 04/15 Normal Protein [facility] CHEMISTRY Calcium Lvl 8.7 mg/dL 8.5 - 10.5 04/15 Normal [facility] CHEMISTRY CO2 29 meq/L 24 - 32 04/15 Normal [facility] CHEMISTRY Chloride Lvl 104 meq/L 95 - 109 04/15 Normal [facility] CHEMISTRY Potassium 3.5 meq/L 3.5 - 5.1 04/15 Normal l [facility] CHEMISTRY Sodium Lvl 140 meq/L 135 - 145 04/15 Normal [facility] HEMATOLOGY PROTIME 12.1 s 12.0 - 04/15 Normal 14.7 [facility] HEMATOLOGY aPTT 39.0 s 22.9 - 04/15 HI 4Interpretive 35.8 Data: Heparin [facility] Therapeutic Range: 57 - 92 Seconds HEMATOLOGY INR 0.90 0.85 - 04/15 Normal 3Interpretive Data: RECOMMENDED RANGES FOR PROTIME INR: . 2.0-3.0 for most medical and surgical thromboembolic states. [facility] 2.5-3.5 for artificial heart valves and recurrent embolism. INR SHOULD BE USED ONLY FOR PATIENTS ON STABLE ANTICOAGULANT THERAPY. HEMATOLOGY MCH 29.4 pg 27.0 - 04/15 Normal MH 31.0 /2012 [facility] HEMATOLOGY MCV 86.1 fL 81.0 - 04/15 Normal MH 99.0 /2012 [facility] HEMATOLOGY Hct 29.4 % 36.0 - 04/15 LOW MH 48.0 /2012 [facility] HEMATOLOGY RDW 14.0 % 11.5 - 04/15 Normal MH 14.5 /2012 [facility] HEMATOLOGY WBC X 10x3 6.2 K/CMM 3.7 - 10.4 04/15 Normal /2012 [facility] HEMATOLOGY Platelet 178 K/CMM 133 - 450 04/15 Normal /2012 [facility] HEMATOLOGY MCHC 34.1 g/dL 32.0 - 04/15 Normal MH 36.0 /2012 [facility] HEMATOLOGY RBC X 10x6 3.41 M/CMM 4.20 - 04/15 LOW MH 5.40 /2012 [facility] HEMATOLOGY Hgb 10.0 g/dL 12.0 - 04/15 LOW MH 16.0 /2012 [facility] HEMATOLOGY MPV 10.1 fL 7.4 - 10.4 04/15 Normal /2012 [facility] HEMATOLOGY Segs-Bands # 4.4 K/CMM 1.5 - 8.1 04/15 Normal /2012 [facility] HEMATOLOGY Basophils 0.7 % 0.0 - 1.0 04/15 Normal /2012 [facility] HEMATOLOGY Segs 70.7 % 45.0 - 04/15 Normal 75.0 [facility] HEMATOLOGY Monocytes # 0.3 K/CMM 0.0 - 0.8 04/15 Normal /2012 [facility] HEMATOLOGY Lymphocytes 1.2 K/CMM 1.0 - 5.5 04/15 Normal MH # /2012 [facility] HEMATOLOGY Monocytes 4.5 % 2.0 - 12.0 04/15 Normal /2012 [facility] HEMATOLOGY Eosinophils 4.1 % 0.0 - 4.0 04/15 HI MH /2012 [facility] HEMATOLOGY Lymphocytes 20.0 % 20.0 - 04/15 Normal 40.0 [facility] HEMATOLOGY Basophils # 0.0 K/CMM 0.0 - 0.2 04/15 Normal /2012 [facility] HEMATOLOGY Eosinophils 0.3 K/CMM 0.0 - 0.5 04/15 Normal MH # /2012 [facility] Abdomen/Pe Abdomen/Pelv CT ABDOMEN AND PELVIS WITH CONTRAST: 04/15 - lvis w is - [facility] contrast contrast CT CT CLINICAL HISTORY: Abdominal pain, acute Read by: Invoice Control Clerk, Gunnar Nir Dictated Date/time: 04/15/13 00:39 Electronically Signed by: Gunnar Park MD 04/15/13 00:43 FINAL REPORT TECHNIQUE AND FINDINGS: Multiple contiguous transaxial postcontrast CT images were obtained through the abdomen and pelvis. COMPARISON: 03/14/2012. CT ABDOMEN WITH CONTRAST: 1. Mild diffuse anasarca. 2. Nonspecific bowel gas pattern with colonic fluid suggesting a diarrheal state or nonspecific colitis. The appendix is not visualized with certainty, but no pericecal inflammatory change is present. U nderdistended appropriately thick-walled stomach. 3. Normal liver, gallbladder, kidneys, adrenal glands, pancreas, spleen, abdominal aorta, heart, and lung bases. 4. Scattered subcentimeter retroperitoneal and mesenteric lymph nodes. No lymphadenopathy, mass, fluid collection, or focal inflammatory process. CT PELVIS WITH CONTRAST: 1. Small free pelvic fluid. 2. Normal urinary bladder. 3. Normal uterus. Indeterminate 2.5 cm low attenuation right adnexal lesion should be further evaluated with pelvic ultrasound. 4. Scattered subcentimeter in shortest axis bilateral inguinal lymph nodes. 5. No acute fracture, dislocation, or focal osseous lesion is appreciated. SL:17 BEDSIDE Gluc POC 260 mg/dL 70 - 99 03/15 HI 1Interpretive GLUCOSE [facility] /2011 Data: [facility] TESTING Upper Reportable Limit: 200 mg/dL. BEDSIDE Comment1 Notify 03/15 [facility] GLUCOSE RN/ /2011 [facility] TESTING URINALYSIS UA Protein Trace Negative 03/14 [facility] *ABN* (03/14/2012 18:40:00) URINALYSIS UA pH 6.0 5.0 - 8.0 03/14 Normal [facility] URINALYSIS UA Ketones >=80 mg/dL Negative 03/14 NA [facility] *NA* (03/14/2012 18:40:00) URINALYSIS UA Glucose >=1000 mg/dL Negative 03/14 [facility] *ABN* (03/14/2012 18:40:00) URINALYSIS UA Blood Negative Negative 03/14 Normal [facility] (03/14/2012 18:40:00) URINALYSIS UA Nitrite Negative Negative 03/14 Normal [facility] (03/14/2012 18:40:00) URINALYSIS UA 0.2 EU/dL 0.1 - 1.0 03/14 Normal Urobilinogen [facility] URINALYSIS UA Leuk Est Negative Negative 03/14 Normal [facility] (03/14/2012 18:40:00) URINALYSIS UA Bili Negative Negative 03/14 NA [facility] *NA* (03/14/2012 18:40:00) URINALYSIS UA Turbidity Clear Clear 03/14 Normal [facility] (03/14/2012 18:40:00) URINALYSIS UA Color Yellow Yellow 03/14 NA [facility] *NA* (03/14/2012 18:40:00) URINALYSIS UA Spec Grav >=1.030 <=1.030 03/14 ABN [facility] *ABN* (03/14/2012 18:40:00) URINALYSIS UA Sq Epi Occasional /LPF Few 03/14 Normal [facility] (03/14/2012 18:40:00) URINALYSIS UA WBC 3-5 /HPF None Seen 03/14 Normal [facility] (03/14/2012 18:40:00) URINALYSIS UA Bacteria Occasional /HPF None Seen 03/14 Normal [facility] (03/14/2012 18:40:00) CHEMISTRY S Preg Negative Negative 03/14 NA [facility] *NA* (03/14/2012 17:50:00) CHEMISTRY Lipase Lvl 45 unit/L 73 - 393 03/14 LOW [facility] CHEMISTRY A/G Ratio 1.2 0.7 - 1.6 03/14 Normal [facility] CHEMISTRY Globulin 3.8 g/dL 2.0 - 4.0 03/14 Normal [facility] CHEMISTRY B/C Ratio 21 6 - 25 03/14 Normal [facility] CHEMISTRY AGAP 16.8 meq/L 10.0 - 03/14 Normal 20.0 [facility] CHEMISTRY Bili Total 1.1 mg/dL 0.2 - 1.3 03/14 Normal [facility] CHEMISTRY Total 8.2 g/dL 6.4 - 8.4 03/14 Normal Protein [facility] CHEMISTRY Potassium 3.8 meq/L 3.5 - 5.1 03/14 Normal Lvl /2011 [facility] CHEMISTRY Creatinine 0.7 mg/dL 0.5 - 1.4 03/14 Normal MH Lvl /2011 [facility] CHEMISTRY Sodium Lvl 139 meq/L 135 - 145 03/14 Normal [facility] CHEMISTRY Chloride Lvl 99 meq/L 95 - 109 03/14 Normal [facility] CHEMISTRY CO2 27 meq/L 24 - 32 03/14 Normal [facility] CHEMISTRY Glucose Lvl 301 mg/dL 70 - 99 03/14 HI 2Interpretive Data: Adult reference range values reflect the clinical guidelines of the [place] [employer]. [facility] CHEMISTRY BUN 15 mg/dL 7 - 22 03/14 Normal [facility] CHEMISTRY ALT 24 unit/L 0 - 65 03/14 Normal [facility] CHEMISTRY AST 20 unit/L 0 - 37 03/14 Normal [facility] CHEMISTRY Alk Phos 67 unit/L 39 - 136 03/14 Normal [facility] CHEMISTRY Albumin Lvl 4.4 g/dL 3.5 - 5.0 03/14 Normal [facility] CHEMISTRY Calcium Lvl 9.9 mg/dL 8.5 - 10.5 03/14 Normal [facility] HEMATOLOGY MPV 11.8 fL 7.4 - 10.4 03/14 HI [facility] HEMATOLOGY MCHC 35.9 g/dL 32.0 - 03/14 Normal 36.0 [facility] HEMATOLOGY MCH 31.2 pg 27.0 - 03/14 HI 31.0 [facility] HEMATOLOGY Platelet 189 K/CMM 133 - 450 03/14 Normal [facility] HEMATOLOGY RDW 13.1 % 11.5 - 03/14 Normal 14.5 [facility] HEMATOLOGY Hct 40.7 % 36.0 - 03/14 Normal 48.0 [facility] HEMATOLOGY Hgb 14.6 g/dL 12.0 - 03/14 Normal 16.0 [facility] HEMATOLOGY MCV 87.0 fL 81.0 - 03/14 Normal 99.0 [facility] HEMATOLOGY WBC 11.7 K/CMM 3.7 - 10.4 03/14 HI [facility] HEMATOLOGY RBC 4.68 M/CMM 4.20 - 03/14 Normal 5.40 /2011 [facility] HEMATOLOGY Basophils # 0.0 K/CMM 0.0 - 0.2 03/14 Normal [facility] HEMATOLOGY Basophils 0.2 % 0.0 - 1.0 03/14 Normal [facility] HEMATOLOGY Eosinophils 0.0 K/CMM 0.0 - 0.5 03/14 Normal # /2012 [facility] HEMATOLOGY Monocytes # 0.4 K/CMM 0.0 - 0.8 03/14 Normal MH /2011 [facility] HEMATOLOGY Segs-Bands # 10.6 K/CMM 1.5 - 8.1 03/14 HI MH /2011 [facility] HEMATOLOGY Lymphocytes 0.7 K/CMM 1.0 - 5.5 03/14 LOW MH # /2011 [facility] HEMATOLOGY Monocytes 3.4 % 2.0 - 12.0 03/14 Normal [facility] HEMATOLOGY Plt Morph Normal 03/14 Normal /2011 [facility] (03/14/2012 17:50:00) HEMATOLOGY Lymphocytes 6.0 % 20.0 - 03/14 LOW MH 40.0 /2011 [facility] HEMATOLOGY Eosinophils 0.0 % 0.0 - 4.0 03/14 Normal [facility] HEMATOLOGY Segs 90.4 % 45.0 - 03/14 HI 75.0 /2011 [facility] HEMATOLOGY RBC Morph Normal 03/14 Normal /2011 [facility] (03/14/2012 17:50:00) BEDSIDE Gluc POC 167 mg/dL 70 - 99 11/29 HI 1Interpretive [facility] GLUCOSE Lifscn Data: Medical TESTING Center Upper Reportable Limit: 200 mg/dL. BEDSIDE Comment1 Notify 11/29 [facility] [place]icki GLUCOSE DARNELL Medical TESTING Center BEDSIDE Comment2 Sliding 11/29 [facility] GLUCOSE Scale /2011 Medical TESTING Center BEDSIDE Gluc POC 189 mg/dL 70 - 99 11/29 HI 2Interpretive [facility] GLUCOSE Lifscn Data: Medical TESTING Center Upper Reportable Limit: 200 mg/dL. BEDSIDE Comment1 Notify 11/29 [facility] [place]icki GLUCOSE [place] /2011 Medical TESTING Center BEDSIDE Comment2 Sliding 11/29 [facility] GLUCOSE Scale /2011 Medical TESTING Center BEDSIDE Comment2 Sliding 11/29 [facility] GLUCOSE Scale Medical TESTING Center BEDSIDE Gluc POC 110 mg/dL 70 - 99 11/29 HI 3Interpretive [facility] GLUCOSE Lifscn Data: Medical TESTING Center Upper Reportable Limit: 200 mg/dL. BEDSIDE Comment1 Notify 11/29 [facility] Micki PATRICK /2012 Medical TESTING Center CHEMISTRY U Preg Negative Negative 11/28 Normal Medical (11/28/2011 19:00:00) Center URINALYSIS Micro? Performed 11/28 Normal [facility] (11/28/2011 19:00:00) Center URINALYSIS UA Sq Epi Occasional /LPF Few 11/28 Normal [facility] (11/28/2011 19:00:00) Center URINALYSIS UA RBC None Seen 0 - 2 11/28 Normal [facility] (11/28/2011 19:00:00) Center URINALYSIS UA WBC Occasional 0 - 5 11/28 NA [facility] URINALYSIS UA Protein Negative mg/dL Negative 11/28 Normal [facility] (11/28/2011 19:00:00) Center URINALYSIS UA pH 7.0 5.0 - 8.0 11/28 Normal [facility] URINALYSIS UA Spec Grav 1.020 <=1.030 11/28 Normal [facility] URINALYSIS UA Turbidity Clear Clear 11/28 Normal [facility] (11/28/2011 19:00:00) Center URINALYSIS UA Color Yellow Yellow 11/28 NA Medical *NA* [place] (11/28/2011 19:00:00) URINALYSIS UA 0.2 EU/dL 0.1 - 1.0 11/28 Normal [facility] /2011 [facility] URINALYSIS UA Blood Negative Negative 11/28 Normal [facility] (11/28/2011 19:00:00) Center URINALYSIS UA Bili Negative Negative 11/28 [facility] *NA* [place] (11/28/2011 19:00:00) URINALYSIS UA Ketones >=80 mg/dL Negative 11/28 ABN Medical *ABN* Center (11/28/2011 19:00:00) URINALYSIS UA Glucose >=1000 mg/dL Negative 11/28 [facility] Medical *ABN* [place] (11/28/2011 19:00:00) URINALYSIS UA Nitrite Negative Negative 11/28 Normal [facility] (11/28/2011 19:00:00) Center URINALYSIS UA Leuk Est Negative Negative 11/28 Normal [facility] (11/28/2011 19:00:00) Center CHEMISTRY pO2 [place] 60 mm[Hg] 20 - 49 11/27 [facility] CHEMISTRY pCO2 [place] 41 mm[Hg] 38 - 52 11/27 Normal Medical Center CHEMISTRY pH [place] 7.45 7.28 - 11/27 [facility] [place] 7.42 /2011 Medical Center CHEMISTRY Temp [place] 37.0 Cathleen 11/27 NA Medical Center CHEMISTRY O2 Sat [place] 92.0 % 40.0 - 11/27 [facility] [place] 70.0 /2011 Medical Center CHEMISTRY BE [place] 4 mMol/L -2-2 - 2 11/27 [facility] CHEMISTRY HCO3 [place] 28.5 22.0 - 11/27 [facility] [place] mMol/L 26.0 /2011 Medical Center CHEMISTRY Lactic Acid 1.6 mMol/L 0.5 - 2.2 11/27 Normal [facility] CHEMISTRY Lipase Lvl 125 U/L 73 - 393 11/27 Normal Medical Center CHEMISTRY Albumin Lvl 4.2 g/dL 3.5 - 5.0 11/27 Normal Medical Center CHEMISTRY CO2 23 meq/L 24 - 32 11/27 LOW [facility] CHEMISTRY Chloride Lvl 98 meq/L 95 - 109 11/27 Normal [facility] CHEMISTRY Potassium 3.8 meq/L 3.5 - 5.1 11/27 Normal [facility] CHEMISTRY Sodium Lvl 138 meq/L 135 - 145 11/27 Normal [facility] Center CHEMISTRY Creatinine 0.7 mg/dL 0.5 - 1.4 11/27 Normal [facility] CHEMISTRY BUN 9 mg/dL 7 - 22 11/27 Normal [facility] CHEMISTRY Glucose Lvl 269 mg/dL 70 - 99 11/27 [place] 4Interpretive Data: Adult Medical reference Center range values reflect the clinical guidelinesof the [place] [employer]. CHEMISTRY B/C Ratio 13 6 - 25 11/27 Normal [facility] Center CHEMISTRY AGAP 20.8 meq/L 10.0 - 11/[address] [facility] 20.0 [facility] Center CHEMISTRY Calcium Lvl 9.3 mg/dL 8.5 - 10.5 11/27 Normal [facility] Center CHEMISTRY Total 6.7 g/dL 6.4 - 8.4 11/27 Normal [facility] Center CHEMISTRY A/G Ratio 1.7 0.7 - 1.6 11/27 [facility] CHEMISTRY Globulin 2.5 g/dL 2.0 - 4.0 11/27 Normal [facility] CHEMISTRY AST 18 U/L 0 - 37 11/27 Normal [facility] CHEMISTRY Alk Phos 62 U/L 39 - 136 11/27 Normal [facility] CHEMISTRY ALT 32 U/L 0 - 65 11/27 Normal [facility] CHEMISTRY Bili Total 0.7 mg/dL 0.2 - 1.3 11/27 Normal [facility] HEMATOLOGY Anisocyte 1+ None Seen 11/27 [facility] [place] (11/28/2011 15:00:00) HEMATOLOGY Monocytes # 0.1 K/CMM 0.0 - 0.8 11/27 [facility] HEMATOLOGY Eosinophils 0.0 K/CMM 0.0 - 0.5 11/27 [facility] HEMATOLOGY Basophils # 0.0 K/CMM 0.0 - 0.2 11/27 [facility] HEMATOLOGY Neut Vac Slight None Seen 11/27 [facility] [place] (11/28/2011 15:00:00) HEMATOLOGY Large Plt Slight None Seen 11/27 [facility] [place] (11/28/2011 15:00:00) HEMATOLOGY Segs-Bands # 5.7 K/CMM 1.5 - 8.1 11/27 [facility] HEMATOLOGY Lymphocytes 0.8 K/CMM 1.0 - 5.5 11/27 [facility] HEMATOLOGY Eosinophils 0.2 % 0.0 - 4.0 11/27 [facility] HEMATOLOGY Basophils 0.0 % 0.0 - 1.0 11/27 [facility] HEMATOLOGY Monocytes 1.9 % 2.0 - 12.0 11/27 [facility] HEMATOLOGY Segs 86.2 % 45.0 - 11/[address] [facility] 75.0 [facility] HEMATOLOGY Lymphocytes 11.7 % 20.0 - 11/27 [facility] [place] 40.0 [facility] HEMATOLOGY MPV 10.8 fL 7.4 - 10.4 11/[address] [facility] HEMATOLOGY Platelet 161 K/CMM 133 - 450 11/27 Normal [facility] HEMATOLOGY MCHC 35.6 g/dL 32.0 - 11/27 Normal [facility] 36.0 /2011 [facility] HEMATOLOGY RDW 12.4 % 11.5 - 11/27 Normal [facility] 14.5 /2011 [facility] HEMATOLOGY MCH 30.7 pg 27.0 - 11/27 Normal [facility] 31.0 /2011 [facility] HEMATOLOGY MCV 86.1 fL 81.0 - 11/27 Normal [facility] 99.0 /2011 [facility] HEMATOLOGY Hct 33.6 % 36.0 - 11/27 LOW [facility] 48.0 /2011 [facility] HEMATOLOGY Hgb 12.0 g/dL 12.0 - 11/27 Normal [facility] 16.0 /2011 [facility] HEMATOLOGY RBC 3.90 M/CMM 4.20 - 11/27 LOW [facility] 5.40 /2011 [facility] HEMATOLOGY WBC 6.6 K/CMM 3.7 - 10.4 11/27 Normal [facility] CHEMISTRY UDS Note See Note 5 11/27 NA 5Interpretive Data: Drugs Medical *NA* reported as Center positive have (11/28/2011 14:51:00) not been confirmed by a second method and should be used for medical purposes only. To orderconfirma tion, contact laboratory. note: Below are cut-off concentration s for all urine drugs of abuse performed in the laboratory. Some drugs listed in the table may not be included in this panel.Descrip tion Cut-off concentration Am phetamine 1000 ng/mLBarbitur ates 200 ng/mLBenzodia zepines 300 ng/mLCocaine metabolites 300 ng/mLOpiates 300 ng/mLPhencycl idine 25 ng/mLPropoxyp hene 300 ng/mLMarijuan a metabolites 50 ng/mLMethadon e 300 ng/mLUrine alcohol 20 mg/dL CHEMISTRY U Phencyc Negative Negative 11/27 [facility] Medical *NA* Center (11/28/2011 14:51:00) CHEMISTRY U Kelly Scr Negative Negative 11/27 [facility] Medical *NA* Center (11/28/2011 14:51:00) CHEMISTRY U Amph Scr Negative Negative 11/27 NA Medical *NA* Center (11/28/2011 14:51:00) CHEMISTRY U Opiate Scr Negative Negative 11/27 NA Medical *NA* Center (11/28/2011 14:51:00) CHEMISTRY U Cocaine Negative Negative 11/27 NA [facility] Medical *NA* Center (11/28/2011 14:51:00) CHEMISTRY U Cannab Scr Negative Negative 11/27 NA Medical *NA* Center (11/28/2011 14:51:00) CHEMISTRY U Benzodia Negative Negative 11/27 [facility] Medical *NA* Center (11/28/2011 14:51:00) BEDSIDE Comment1 Notify 09/17 NA [facility] GLUCOSE RN/MD Medical TESTING Center BEDSIDE Gluc POC 328 mg/dL 70 - 99 09/17 [place] 1Interpretive [facility] GLUCOSE Lifscn Data: Medical TESTING Center Upper Reportable Limit: 200 mg/dL. CHEMISTRY U Preg Negative Negative 09/17 Normal Medical (09/18/2011 10:30:00) Center URINALYSIS UA WBC None Seen None Seen 09/17 Normal Medical (09/18/2011 10:30:00) Center URINALYSIS UA RBC None Seen 0 - 2 09/17 Normal Medical (09/18/2011 10:30:00) Center URINALYSIS UA Bacteria None Seen None Seen 09/17 Normal Medical (09/18/2011 10:30:00) Center URINALYSIS UA Amorph Few /HPF None Seen 09/17 [facility] Medical *ABN* Center (09/18/2011 10:30:00) URINALYSIS Micro? Performed 09/17 Normal Medical (09/18/2011 10:30:00) Center URINALYSIS UA Sq Epi Rare /LPF Few 09/17 Normal Medical (09/18/2011 10:30:00) Center URINALYSIS UA Ketones 15 mg/dL Negative 09/17 [facility] Medical *ABN* Center (09/18/2011 10:30:00) URINALYSIS UA Glucose >=1000 mg/dL Negative 09/17 ABN Medical *ABN* Center (09/18/2011 10:30:00) URINALYSIS UA Protein Trace Negative 09/17 ABN Medical *ABN* Center (09/18/2011 10:30:00) URINALYSIS UA 0.2 EU/dL 0.1 - 1.0 09/17 Normal [facility] Urobilinogen /2011 [facility] URINALYSIS UA Blood Negative Negative 09/17 Normal [facility] (09/18/2011 10:30:00) Center URINALYSIS UA Bili Negative Negative 09/17 NA Medical *NA* [place] (09/18/2011 10:30:00) URINALYSIS UA Leuk Est Negative Negative 09/17 Normal [facility] (09/18/2011 10:30:00) Center URINALYSIS UA Nitrite Negative Negative 09/17 Normal [facility] (09/18/2011 10:30:00) Center URINALYSIS UA pH 7.5 5.0 - 8.0 09/17 Normal [facility] URINALYSIS UA Spec Grav 1.010 <=1.030 09/17 Normal [facility] URINALYSIS UA Turbidity Slight Cloudy Clear 09/17 Normal [facility] (09/18/2011 10:30:00) Center URINALYSIS UA Color Yellow Yellow 09/17 NA [facility] *NA* Center (09/18/2011 10:30:00) CHEMISTRY Phosphorus 4.4 mg/dL 2.5 - 4.5 09/17 Normal [facility] CHEMISTRY Magnesium 1.6 mg/dL 1.8 - 2.4 09/17 LOW [facility] Lvl Medical Center BEDSIDE Gluc POC null 70 - 99 09/17 CRIT 2Interpretive [facility] GLUCOSE Lifsc Data: Medical TESTING Center Upper Reportable Limit: 200 mg/dL. CHEMISTRY pO2 [place] 24 mm[Hg] 20 - 49 09/17 Normal [facility] CHEMISTRY HCO3 [place] 32.0 22.0 - 09/17 HI [facility] mMol/L 26.0 [facility] CHEMISTRY pCO2 [place] 44 mm[Hg] 38 - 52 09/17 Normal [facility] CHEMISTRY BE [place] 7 mMol/L -2-2 - 2 09/17 [facility] Medical Center CHEMISTRY O2 Sat [place] 48.0 % 40.0 - 09/17 Normal [place] 70.0 Medical Center CHEMISTRY Temp [place] 37.0 Cathleen 09/17 NA Medical Center CHEMISTRY pH [place] 7.47 7.28 - 09/17 HI [place] 7.42 /2011 Medical Center CHEMISTRY Calcium Lvl 10.1 mg/dL 8.5 - 10.5 09/17 Normal Medical Center CHEMISTRY Chloride Lvl 92 meq/L 95 - 109 09/17 LOW Medical Center CHEMISTRY CO2 30 meq/L 24 - 32 09/17 Normal [facility] Center CHEMISTRY Potassium 3.5 meq/L 3.5 - 5.1 09/17 Normal [facility] Medical Center CHEMISTRY Sodium Lvl 133 meq/L 135 - 145 09/17 LOW [facility] Center CHEMISTRY Creatinine 1.3 mg/dL 0.5 - 1.4 09/17 Normal [facility] Medical Center CHEMISTRY Glucose Lvl 383 mg/dL 70 - 99 09/17 HI 3Interpretive Data: Adult Medical reference Center range values reflect the clinical guidelinesof the [place] [employer]. CHEMISTRY BUN 17 mg/dL 7 - 22 09/17 Normal [facility] Center CHEMISTRY AGAP 14.5 meq/L 10.0 - 09/17 Normal 20.0 Medical Center HEMATOLOGY MPV 12.0 fL 7.4 - 10.4 09/17 HI Medical Center HEMATOLOGY Platelet 226 K/CMM 133 - 450 09/17 Normal Medical Center HEMATOLOGY MCHC 33.7 g/dL 32.0 - 09/17 Normal [place] 36.0 Medical Center HEMATOLOGY MCH 28.5 pg 27.0 - 09/17 Normal [place] 31.0 /2011 Medical Center HEMATOLOGY RDW 15.1 % 11.5 - 09/17 [facility] [place] 14.5 Medical Center HEMATOLOGY MCV 84.6 fL 81.0 - 09/17 Normal [place] 99.0 Medical Center HEMATOLOGY Hct 36.4 % 36.0 - 09/17 Normal [place] 48.0 Medical Center HEMATOLOGY Hgb 12.3 g/dL 12.0 - 09/17 Normal [place] 16.0 Medical Center HEMATOLOGY RBC 4.30 M/CMM 4.20 - 09/17 Normal [facility] 5.40 /2011 [facility] Center HEMATOLOGY WBC 11.7 K/CMM 3.7 - 10.4 09/17 [facility] HEMATOLOGY Monocytes 2.9 % 2.0 - 12.0 09/17 [facility] /2011 [facility] HEMATOLOGY Eosinophils 0.2 % 0.0 - 4.0 09/17 [facility] /2011 [facility] HEMATOLOGY Basophils 0.0 % 0.0 - 1.0 09/17 [facility] HEMATOLOGY Eosinophils 0.0 K/CMM 0.0 - 0.5 09/17 Normal [facility] # [facility] HEMATOLOGY Monocytes # 0.3 K/CMM 0.0 - 0.8 09/17 [facility] HEMATOLOGY Segs 92.0 % 45.0 - 09/[address] [facility] 75.0 [facility] HEMATOLOGY Lymphocytes 4.9 % 20.0 - 09/17 LOW [facility] 40.0 [facility] HEMATOLOGY Spherocyte Rare None Seen 09/17 [facility] *[facility]* [place] (09/18/2011 08:52:00) HEMATOLOGY Large Plt Slight None Seen 09/17 [facility]* [place] (09/18/2011 08:52:00) HEMATOLOGY Microcyte 1+ None Seen 09/17 [facility]* [place] (09/18/2011 08:52:00) HEMATOLOGY Schistocyte Rare 09/17 [facility] HEMATOLOGY Macrocyte 1+ None Seen 09/17 [facility]* [place] (09/18/2011 08:52:00) HEMATOLOGY Lymphocytes 0.6 K/CMM 1.0 - 5.5 09/17 LOW [facility] # [facility] HEMATOLOGY Segs-Bands # 10.8 K/CMM 1.5 - 8.1 09/17 [facility] HEMATOLOGY Basophils # 0.0 K/CMM 0.0 - 0.2 09/17 [facility] HEMATOLOGY Anisocyte 1+ None Seen 09/17 [facility]* [place] (09/18/2011 08:52:00) IMMUNOLOGY CDC-HIV 1/2 Negative Negative 09/17 [facility] *NA* [place] (09/18/2011 08:52:00) BEDSIDE Gluc POC 215 mg/dL 70 - 99 09/08 HI 1Interpretive [facility] GLUCOSE Lifscn Data: Medical TESTING Center Upper Reportable Limit: 200 mg/dL. BEDSIDE Comment1 Notify 09/08 NA [facility] GLUCOSE RN/ /2011 Medical TESTING Center BEDSIDE Comment1 Notify 09/08 NA [place] GLUCOSE RN/ /2011 Medical TESTING Center BEDSIDE Gluc POC 91 mg/dL 65 - 110 09/08 Normal 2Interpretive [facility] GLUCOSE Lifscn Data: Medical TESTING Center Upper Reportable Limit: 200 mg/dL. BEDSIDE Comment1 Notify 09/08 NA [place] GLUCOSE RN/ /2011 Medical TESTING Center BEDSIDE Gluc POC 148 mg/dL 65 - 110 09/08 HI 3Interpretive [facility] GLUCOSE Lifscn Data: Medical TESTING Center Upper Reportable Limit: 200 mg/dL. CHEMISTRY Sodium Lvl 143 meq/L 135 - 145 09/07 Normal Medical Center CHEMISTRY Glucose Lvl 105 mg/dL 09/07 NA 4Interpretive Data: Medical [facility] Center Ranges : 0 - 7 days : 41 - 90 mg/dL7 days - 150 yrs : 70 - 99 mg/dL (fasting), based on the clinical recommendatio ns of the [place] [employer]. CHEMISTRY CO2 29 meq/L 24 - 32 09/07 Normal [facility] CHEMISTRY Chloride Lvl 103 meq/L 95 - 109 09/07 Normal [facility] Center CHEMISTRY BUN 10 mg/dL 7 - 22 09/07 Normal Medical Center CHEMISTRY Potassium 3.8 meq/L 3.5 - 5.1 09/07 Normal [facility] Center CHEMISTRY Creatinine 0.6 mg/dL 0.5 - 1.4 09/07 Normal [facility] Medical Center CHEMISTRY Calcium Lvl 8.5 mg/dL 8.5 - 10.5 09/07 Normal [facility] Center CHEMISTRY AGAP 14.8 meq/L 10.0 - 09/07 Normal [facility] 20. Medical Center HEMATOLOGY MCH 28.9 pg 27.0 - 09/07 Normal [facility] 31.0 Medical Center HEMATOLOGY MCV 82.1 fL 81.0 - 09/07 Normal [facility] 99.0 Medical Center HEMATOLOGY Hct 25.9 % 36.0 - 09/07 LOW [place] 48.0 /2011 Medical Center HEMATOLOGY Platelet 233 K/CMM 133 - 450 09/07 Normal Medical [place] HEMATOLOGY RDW 14.5 % 11.5 - 09/07 Normal [place] 14.5 Medical [place] HEMATOLOGY MCHC 35.2 g/dL 32.0 - 09/07 Normal [place] 36.0 Medical [place] HEMATOLOGY Hgb 9.1 g/dL 12.0 - 09/07 LOW [place] 16.0 Medical Center HEMATOLOGY RBC 3.15 M/CMM 4.20 - 09/07 LOW [place] 5.40 /2011 Medical [place] HEMATOLOGY MPV 9.0 fL 7.4 - 10.4 09/07 Normal [facility] HEMATOLOGY WBC 6.3 K/CMM 3.7 - 10.4 09/07 Normal [facility] HEMATOLOGY Eosinophils 0.0 K/CMM 0.0 - 0.5 09/07 Normal [facility] HEMATOLOGY Basophils # 0.0 K/CMM 0.0 - 0.2 09/07 Normal [facility] HEMATOLOGY Segs-Bands # 3.8 K/CMM 1.5 - 8.1 09/07 Normal [facility] HEMATOLOGY Lymphocytes 2.0 K/CMM 1.0 - 5.5 09/07 Normal [facility] HEMATOLOGY Basophils 0.5 % 0.0 - 1.0 09/07 Normal [facility] HEMATOLOGY Eosinophils 0.7 % 0.0 - 4.0 09/07 Normal [facility] HEMATOLOGY Monocytes 6.2 % 2.0 - 12.0 09/07 Normal [facility] HEMATOLOGY Segs 61.1 % 45.0 - 09/07 Normal [place] 75.0 Medical [place] HEMATOLOGY Lymphocytes 31.5 % 20.0 - 03 Normal 40.0 [facility] HEMATOLOGY Monocytes # 0.4 K/CMM 0.0 - 0.8 09/07 Normal [facility] CHEMISTRY CO2 27 meq/L 24 - 32 09/06 Normal [facility] CHEMISTRY Chloride Lvl 104 meq/L 95 - 109 09/06 Normal [facility] CHEMISTRY Creatinine 0.5 mg/dL 0.5 - 1.4 09/06 Normal [facility] Center CHEMISTRY BUN 10 mg/dL 7 - 22 09/06 Normal Medical Center CHEMISTRY Potassium 4.1 meq/L 3.5 - 5.1 09/06 Normal [facility] Lvl Medical Center CHEMISTRY Sodium Lvl 141 meq/L 135 - 145 09/06 Normal [facility] Center CHEMISTRY Glucose Lvl 83 mg/dL 09/06 NA 5Interpretive Data: Medical Reference Center Ranges : 0 - 7 days : 41 - 90 mg/dL7 days - 150 yrs : 70 - 99 mg/dL (fasting), based on the clinical recommendatio ns of the [place] [employer]. CHEMISTRY Calcium Lvl 8.4 mg/dL 8.5 - 10.5 09/06 LOW [facility] Center CHEMISTRY AGAP 14.1 meq/L 10.0 - 09/06 Normal [facility] 20.0 Medical Center HEMATOLOGY Hct 35.5 % 36.0 - 09/06 LOW [facility] 48.0 Medical Center HEMATOLOGY WBC 4.7 K/CMM 3.7 - 10.4 09/06 Normal [facility] Center HEMATOLOGY MCV 92.6 fL 81.0 - 09/06 Normal [facility] 99.0 Medical Center HEMATOLOGY MCH 31.4 pg 27.0 - 09/06 HI [facility] 31.0 /2011 Medical Center HEMATOLOGY RBC 3.84 M/CMM 4.20 - 09/06 LOW [facility] 5.40 /2011 [facility] Center HEMATOLOGY Hgb 12.1 g/dL 12.0 - 09/06 Normal [facility] 16.0 [facility] Center HEMATOLOGY Platelet 287 K/CMM 133 - 450 09/06 Normal [facility] Center HEMATOLOGY RDW 12.7 % 11.5 - 09/06 [facility] 14.5 Medical Center HEMATOLOGY MCHC 33.9 g/dL 32.0 - 09/06 Normal [facility] 36.0 Medical Center HEMATOLOGY MPV 7.2 fL 7.4 - 10.4 09/06 LOW Medical Center HEMATOLOGY INR 0.95 0.85 - 09/06 Normal 7Interpretive [facility] 1. Data: Medical RECOMMENDED Center RANGES FOR PROTIME INR: 2.0-3.0 for most medical and surgical thromboemboli c states. 2.5-3.5 for artificial heart valves and recurrent embolism.INR SHOULD BE USED ONLY FOR PATIENTS ON STABLE ANTICOAGULANT THERAPY. HEMATOLOGY PT 12.7 s 12.0 - 09/06 Normal [facility] 14.7 /2011 [facility] HEMATOLOGY PTT 28.5 s 22.9 - 09/06 Normal 9Interpretive [facility] 35.8 /2011 Data: Heparin Medical Therapeutic Center Range: 57 - 92 Seconds HEMATOLOGY Eosinophils 0.1 K/CMM 0.0 - 0.5 09/06 Normal [facility] # /2011 [facility] HEMATOLOGY Basophils # 0.0 K/CMM 0.0 - 0.2 09/06 Normal [facility] HEMATOLOGY Basophils 0.4 % 0.0 - 1.0 09/06 Normal [facility] HEMATOLOGY Segs-Bands # 2.1 K/CMM 1.5 - 8.1 09/06 Normal [facility] HEMATOLOGY Monocytes 9.0 % 2.0 - 12.0 09/06 Normal [facility] HEMATOLOGY Eosinophils 2.4 % 0.0 - 4.0 09/06 Normal [facility] HEMATOLOGY Monocytes # 0.4 K/CMM 0.0 - 0.8 09/06 Normal [facility] HEMATOLOGY Lymphocytes 2.0 K/CMM 1.0 - 5.5 09/06 Normal [facility] HEMATOLOGY Lymphocytes 42.8 % 20.0 - 09/06 HI [facility] 40.0 /2011 [facility] HEMATOLOGY Segs 45.4 % 45.0 - 09/06 [facility] 75.0 [facility] CHEMISTRY Chloride Lvl 105 meq/L 95 - 109 09/06 Normal [facility] CHEMISTRY Potassium 4.1 meq/L 3.5 - 5.1 09/06 Normal [facility] CHEMISTRY Sodium Lvl 143 meq/L 135 - 145 09/06 Normal [facility] CHEMISTRY CO2 29 meq/L 24 - 32 09/06 Normal [facility] CHEMISTRY Calcium Lvl 8.7 mg/dL 8.5 - 10.5 09/06 Normal [facility] CHEMISTRY BUN 6 mg/dL 7 - 22 09/06 LOW [facility] CHEMISTRY Creatinine 0.6 mg/dL 0.5 - 1.4 09/06 Normal [facility] CHEMISTRY Glucose Lvl 118 mg/dL 09/06 NA 6Interpretive Data: Medical Reference Center Ranges : 0 - 7 days : 41 - 90 mg/dL7 days - 150 yrs : 70 - 99 mg/dL (fasting), based on the clinical recommendatio ns of the [place] [employer]. CHEMISTRY AGAP 13.1 meq/L 10.0 - 09/06 Normal [facility] 20.0 [facility] HEMATOLOGY Basophils # 0.0 K/CMM 0.0 - 0.2 09/06 Normal [facility] HEMATOLOGY Monocytes # 0.3 K/CMM 0.0 - 0.8 09/06 Normal [facility] HEMATOLOGY Eosinophils 0.1 K/CMM 0.0 - 0.5 09/06 Normal [facility] HEMATOLOGY Segs-Bands # 2.8 K/CMM 1.5 - 8.1 09/06 Normal [facility] HEMATOLOGY Lymphocytes 1.7 K/CMM 1.0 - 5.5 09/06 Normal [facility] HEMATOLOGY Basophils 0.6 % 0.0 - 1.0 09/06 Normal [facility] HEMATOLOGY Monocytes 6.9 % 2.0 - 12.0 09/06 Normal [facility] HEMATOLOGY Eosinophils 2.0 % 0.0 - 4.0 09/06 Normal [facility] HEMATOLOGY Segs 55.8 % 45.0 - 09/06 Normal [facility] 75.0 [facility] HEMATOLOGY Lymphocytes 34.7 % 20.0 - 09/06 Normal [facility] 40.0 [facility] HEMATOLOGY PTT 32.2 s 22.9 - 09/06 Normal 10Interpretiv [facility] 35.8 e Data: [facility] Heparin Center Therapeutic Range: 57 - 92 Seconds HEMATOLOGY PT 13.3 s 12.0 - 09/06 Normal [facility] 14.7 [facility] HEMATOLOGY INR 1.01 0.85 - 09/06 Normal 8Interpretive [facility] 1.17 Data: Medical [facility] Center RANGES FOR PROTIME INR: 2.0-3.0 for most medical and surgical thromboemboli c states. 2.5-3.5 for artificial heart valves and recurrent embolism.INR SHOULD BE USED ONLY FOR PATIENTS ON STABLE ANTICOAGULANT THERAPY. HEMATOLOGY Hct 27.5 % 36.0 - 09/06 LOW [place] 48.0 [facility] HEMATOLOGY RBC 3.34 M/CMM 4.20 - 09/06 LOW [facility] 5.40 /2011 Medical Center HEMATOLOGY Hgb 9.7 g/dL 12.0 - 09/06 LOW [facility] 16.0 /2011 Medical [place] HEMATOLOGY WBC 5.0 K/CMM 3.7 - 10.4 09/06 Normal [facility] HEMATOLOGY MPV 9.2 fL 7.4 - 10.4 09/06 Normal [facility] HEMATOLOGY Platelet 240 K/CMM 133 - 450 09/06 Normal [facility] HEMATOLOGY RDW 14.3 % 11.5 - 09/06 Normal [facility] 14.5 /2011 Medical Center HEMATOLOGY MCHC 35.2 g/dL 32.0 - 09/06 Normal [facility] 36.0 /2011 [facility] HEMATOLOGY MCH 28.9 pg 27.0 - 09/06 Normal [facility] 31.0 [facility] HEMATOLOGY MCV 82.1 fL 81.0 - 09/06 Normal [facility] 99.0 [facility] CHEMISTRY Magnesium 2.1 mg/dL 1.8 - 2.4 09/02 Normal [facility] Center Microbiolo Culture: 09/01 [facility] Fluid/Tissue Microbiolo Culture: 09/01 [facility] Anaerobic [facility] CHEMISTRY Temp [place] 37.0 [place] 08/31 NA [facility] CHEMISTRY O2 Sat [place] 27.0 % 40.0 - 08/31 LOW [facility] 70.0 [facility] CHEMISTRY pCO2 [place] 47 mm[Hg] 38 - 52 08/31 Normal [facility] CHEMISTRY pH [place] 7.37 7.28 - 08/31 Normal [facility] 7.42 [facility] CHEMISTRY BE [place] 1 mMol/L -2-2 - 2 08/31 Normal [facility] CHEMISTRY HCO3 [place] 27.2 22.0 - 08/31 HI [facility] mMol/L 26.0 [facility] CHEMISTRY pO2 [place] 19 mm[Hg] 20 - 49 08/31 LOW [facility] Center Microbiolo Culture: 08/31 [facility] Blood [facility] Center Microbiolo Culture: 08/31 [facility] Wound/Absces /2011 Medical s w[facility] Stain CHEMISTRY Lactic Acid 1.0 mMol/L 0.5 - 2.2 08/31 Normal [facility] CHEMISTRY U Preg Negative Negative 08/31 Normal Medical (09/01/2011 07:20:00) Center URINALYSIS UA Sq Epi Occasional /LPF Few 08/31 Normal [facility] (09/01/2011 07:20:00) Center URINALYSIS UA Leuk Est Negative Negative 08/31 Normal [facility] (09/01/2011 07:20:00) Center URINALYSIS UA Nitrite Negative Negative 08/31 Normal Medical (09/01/2011 07:20:00) Center URINALYSIS UA 0.2 EU/dL 0.1 - 1.0 08/31 Normal [facility] Urobilinogen /2011 [facility] URINALYSIS UA Blood Negative Negative 08/31 Normal Medical (09/01/2011 07:20:00) Center URINALYSIS UA Ketones >=80 mg/dL Negative 08/31 ABN Medical *ABN* [place] (09/01/2011 07:20:00) URINALYSIS UA Protein Negative Negative 08/31 Normal Medical (09/01/2011 07:20:00) Center URINALYSIS UA pH 6.0 5.0 - 8.0 08/31 Normal [facility] URINALYSIS UA Bili Negative Negative 08/31 Normal Medical (09/01/2011 07:20:00) Center URINALYSIS UA Glucose >=1000 mg/dL Negative 08/31 ABN Medical *ABN* Center (09/01/2011 07:20:00) URINALYSIS UA Spec Grav 1.035 <=1.030 08/31 HI [facility] Center URINALYSIS UA Turbidity Clear Clear 08/31 Normal Medical (09/01/2011 07:20:00) Center URINALYSIS UA Color Yellow Yellow 08/31 NA Medical *NA* Center (09/01/2011 07:20:00) CHEMISTRY Lactic Acid 2.8 mMol/L 0.5 - 2.2 08/31 [facility] CHEMISTRY Magnesium 1.5 mg/dL 1.8 - 2.4 08/31 LOW [facility] HEMATOLOGY Polychrom Slight None Seen 08/31 Normal Medical (09/01/2011 02:47:00) Center HEMATOLOGY Anisocyte 1+ None Seen 08/31 [facility] Medical *ABN* Center (09/01/2011 02:47:00) HEMATOLOGY Large Plt Slight None Seen 08/31 [facility] *[facility]* Center (09/01/2011 02:47:00) HEMATOLOGY Tear Cell Occasional 08/31 NA Medical Center HEMATOLOGY Elliptocyte Slight None Seen 08/31 [facility] *ABN* Center (09/01/2011 02:47:00) BEDSIDE Comment1 Notify 08/22 NA [facility] GLUCOSE RN/ Medical TESTING Center BEDSIDE Gluc POC 134 mg/dL 65 - 110 08/22 HI 1Interpretive [facility] GLUCOSE [facility] Data: Medical TESTING Center Upper Reportable Limit: 200 mg/dL. BEDSIDE Gluc POC 182 mg/dL 65 - 110 08/22 HI 2Interpretive [facility] GLUCOSE Lifscn Data: Medical TESTING Center Upper Reportable Limit: 200 mg/dL. BEDSIDE Comment1 Notify 08/22 [facility] GLUCOSE RN/MD Medical TESTING Center CHEMISTRY Phosphorus 3.0 mg/dL 2.5 - 4.5 08/22 Normal [facility] CHEMISTRY Magnesium 1.8 mg/dL 1.8 - 2.4 08/22 Normal [facility] CHEMISTRY Chloride Lvl 107 meq/L 95 - 109 08/22 Normal [facility] CHEMISTRY Potassium 3.0 meq/L 3.5 - 5.1 08/22 CRIT 4Result [facility] Comment: Medical Critical Center Result(s) called to annie genao at 08/23/2011 5:18 by tac. Read back OK. CHEMISTRY Sodium Lvl 141 meq/L 135 - 145 / Normal [facility] CHEMISTRY Creatinine 0.6 mg/dL 0.5 - 1.4 08/22 Normal [facility] CHEMISTRY CO2 23 meq/L 24 - 32 03 LOW [facility]2011 [facility] CHEMISTRY Calcium Lvl 7.3 mg/dL 8.5 - 10.5 08/22 LOW Medical [place] CHEMISTRY Glucose Lvl 136 mg/dL 08/22 NA 5Interpretive Data: Medical Reference Center Ranges : 0 - 7 days : 41 - 90 mg/dL7 days - 150 yrs : 70 - 99 mg/dL (fasting), based on the clinical recommendatio ns of the [place] [employer]. CHEMISTRY AGAP 14.0 meq/L 10.0 - 03/04 Normal [place] 20.0 [facility] CHEMISTRY BUN 5 mg/dL 7 - 22 03/ LOW [facility] HEMATOLOGY Segs 69.6 % 45.0 - 03/04 Normal [place] 75.0 [facility] HEMATOLOGY Lymphocytes 21.5 % 20.0 - 03/04 Normal [place] 40.0 [facility] HEMATOLOGY Monocytes 7.6 % 2.0 - 12.0 03/ Normal [facility] HEMATOLOGY Eosinophils 1.0 % 0.0 - 4.0 03/ Normal [facility] HEMATOLOGY Basophils 0.3 % 0.0 - 1.0 03/ Normal [facility] HEMATOLOGY Segs-Bands # 4.8 K/CMM 1.5 - 8.1 03/ Normal [facility] HEMATOLOGY Eosinophils 0.1 K/CMM 0.0 - 0.5 03/ Normal [facility] # /2011 [facility] HEMATOLOGY Lymphocytes 1.5 K/CMM 1.0 - 5.5 03/ Normal [facility] HEMATOLOGY Monocytes # 0.5 K/CMM 0.0 - 0.8 03/ Normal [facility] HEMATOLOGY Basophils # 0.0 K/CMM 0.0 - 0.2 03/ Normal [facility] HEMATOLOGY MPV 11.0 fL 7.4 - 10.4 / HI [facility] HEMATOLOGY Platelet 161 K/CMM 133 - 450 03/ Normal [facility] HEMATOLOGY MCH 29.6 pg 27.0 - 03/04 Normal [facility] 31.0 [facility] HEMATOLOGY MCHC 35.4 g/dL 32.0 - 03/04 Normal [facility] 36.0 [facility] HEMATOLOGY RDW 14.1 % 11.5 - 03/04 Normal [facility] 14.5 [facility] HEMATOLOGY WBC 6.8 K/CMM 3.7 - 10.4 03/ Normal [facility] HEMATOLOGY MCV 83.5 fL 81.0 - 03/ Normal [facility] 99.0 [facility] HEMATOLOGY RBC 4.44 M/CMM 4.20 - 03 Normal [facility] 5.40 /2011 Medical [place] HEMATOLOGY Hgb 13.1 g/dL 12.0 - 08/22 Normal [facility] 16.0 [facility] HEMATOLOGY Hct 37.1 % 36.0 - 08/22 Normal [facility] 48.0 /2011 Medical Center BEDSIDE Comment1 Notify 08/22 NA [facility] GLUCOSE RN/MD Medical TESTING Center BEDSIDE Gluc POC 332 mg/dL 65 - 110 08/22 HI 3Interpretive [facility] GLUCOSE Lifscn Data: Medical TESTING Center Upper Reportable Limit: 200 mg/dL. CHEMISTRY Phosphorus 2.5 mg/dL 2.5 - 4.5 08/21 Normal [facility]2011 [facility] CHEMISTRY Glucose Lvl 201 mg/dL 08/21 NA 6Interpretive [facility] Data: Medical [facility] Center Ranges : 0 - 7 days : 41 - 90 mg/dL7 days - 150 yrs : 70 - 99 mg/dL (fasting), based on the clinical recommendatio ns of the [place] [employer]. CHEMISTRY BUN 7 mg/dL 7 - 22 08/21 Normal [facility] [address] [place] [address] CHEMISTRY CO2 19 meq/L 24 - 32 08/21 [facility]2011 [facility] CHEMISTRY Creatinine 0.3 mg/dL 0.5 - 1.4 08/21 [facility] CHEMISTRY Sodium Lvl 137 meq/L 135 - 145 08/21 Normal [facility]2011 [facility] CHEMISTRY Chloride Lvl 103 meq/L 95 - 109 08/21 Normal [facility]2011 [facility] CHEMISTRY Potassium 3.6 meq/L 3.5 - 5.1 08/21 Normal [facility] CHEMISTRY Calcium Lvl 7.9 mg/dL 8.5 - 10.5 08/21 LOW [facility]2011 [facility] CHEMISTRY AGAP 18.6 meq/L 10.0 - 08/21 Normal [facility] 20.0 [facility] CHEMISTRY Magnesium 1.6 mg/dL 1.8 - 2.4 08/21 [facility] HEMATOLOGY Basophils # 0.0 K/CMM 0.0 - 0.2 08/[address] HEMATOLOGY Eosinophils 0.4 % 0.0 - 4.0 08/21 Normal [facility]2011 [facility] HEMATOLOGY Basophils 0.5 % 0.0 - 1.0 03/ Normal [facility] HEMATOLOGY Segs-Bands # 5.9 K/CMM 1.5 - 8.1 03/ Normal Medical Center HEMATOLOGY Lymphocytes 1.2 K/CMM 1.0 - 5.5 03/ Normal [place] # [facility] HEMATOLOGY Monocytes # 0.5 K/CMM 0.0 - 0.8 03/ Normal [facility] HEMATOLOGY Eosinophils 0.0 K/CMM 0.0 - 0.5 03/ Normal [place] # [facility] Center HEMATOLOGY Segs 76.9 % 45.0 - 03/ HI [place] 75.0 /2011 Medical Center HEMATOLOGY Lymphocytes 15.9 % 20.0 - 03/ LOW [place] 40.0 [facility] HEMATOLOGY Monocytes 6.3 % 2.0 - 12.0 / Normal [facility] HEMATOLOGY MCV 82.8 fL 81.0 - 08/21 Normal [facility] 99.0 [facility] HEMATOLOGY Hct 39.7 % 36.0 - 03 Normal [place] 48.0 /2011 Medical [place] HEMATOLOGY MCH 29.1 pg 27.0 - 03 Normal [facility] 31.0 /2011 Medical Center HEMATOLOGY Hgb 14.0 g/dL 12.0 - 03/ Normal [facility] Center 16.0 /2011 [facility] [place] HEMATOLOGY MCHC 35.2 g/dL 32.0 - 03/ Normal [facility] 36.0 /2011 [facility] HEMATOLOGY RDW 13.9 % 11.5 - 03 Normal [facility] 14.5 [facility] HEMATOLOGY Platelet 160 K/CMM 133 - 450 03/ Normal [facility] HEMATOLOGY MPV 11.9 fL 7.4 - 10.4 03 HI [facility] HEMATOLOGY WBC 7.7 K/CMM 3.7 - 10.4 03/ Normal [facility] HEMATOLOGY RBC 4.80 M/CMM 4.20 - 03 Normal [facility] 5.40 /2011 [facility] CHEMISTRY Phosphorus 2.6 mg/dL 2.5 - 4.5 03/ Normal [facility] CHEMISTRY Magnesium 1.8 mg/dL 1.8 - 2.4 08/20 Normal [facility] Lvl [facility] CHEMISTRY Potassium 3.7 meq/L 3.5 - 5.1 08/20 Normal [facility] CHEMISTRY Sodium Lvl 137 meq/L 135 - 145 03 Normal [facility] CHEMISTRY Creatinine 0.6 mg/dL 0.5 - 1.4 08/20 Normal [facility] CHEMISTRY BUN 16 mg/dL 7 - 22 08/20 Normal [facility] CHEMISTRY Glucose Lvl 200 mg/dL 08/20 NA 7Interpretive Data: Medical Reference Center Ranges : 0 - 7 days : 41 - 90 mg/dL7 days - 150 yrs : 70 - 99 mg/dL (fasting), based on the clinical recommendatio ns of the [place] [employer]. CHEMISTRY Calcium Lvl 8.3 mg/dL 8.5 - 10.5 08/20 LOW [facility] CHEMISTRY AGAP 19.7 meq/L 10.0 - 08/20 Normal [facility] 20.0 [facility] CHEMISTRY Chloride Lvl 99 meq/L 95 - 109 08/20 Normal [facility] CHEMISTRY CO2 22 meq/L 24 - 32 03 LOW [facility] HEMATOLOGY Platelet 172 K/CMM 133 - 450 03 Normal [facility] HEMATOLOGY MPV 12.0 fL 7.4 - 10.4 08/20 HI [facility] HEMATOLOGY WBC 7.3 K/CMM 3.7 - 10.4 08/20 Normal [facility] HEMATOLOGY RDW 14.6 % 11.5 - 08/[address] [facility] 14.5 Medical Center HEMATOLOGY MCHC 35.0 g/dL 32.0 - 03 Normal [facility] 36.0 [facility] HEMATOLOGY RBC 4.54 M/CMM 4.20 - 03 Normal [facility] 5.40 /2011 [facility] HEMATOLOGY Hct 37.6 % 36.0 - 03 Normal [facility] 48.0 Medical Center HEMATOLOGY MCV 82.9 fL 81.0 - 08/20 Normal [facility] 99.0 [facility] [place] HEMATOLOGY MCH 29.0 pg 27.0 - 08/20 Normal [facility] 31.0 Medical Center HEMATOLOGY Hgb 13.2 g/dL 12.0 - 03 Normal 8Result [facility] 16.0 Comment: hp Medical rechecked, no Center clot seen HEMATOLOGY Elliptocyte Slight None Seen 08/20 ABN Medical *ABN* Center (08/21/2011 04:28:00) HEMATOLOGY Polychrom Slight None Seen 08/20 Normal Medical (08/21/2011 04:28:00) Center HEMATOLOGY Basophils # 0.0 K/CMM 0.0 - 0.2 08/20 Normal [facility] HEMATOLOGY Hypochrom Slight None Seen 08/20 Normal [facility] (08/21/2011 04:28:00) [place] HEMATOLOGY Monocytes # 0.6 K/CMM 0.0 - 0.8 08/20 Normal [facility] HEMATOLOGY Eosinophils 0.0 K/CMM 0.0 - 0.5 08/20 Normal [facility] HEMATOLOGY Segs-Bands # 5.3 K/CMM 1.5 - 8.1 08/20 Normal [facility] HEMATOLOGY Lymphocytes 1.3 K/CMM 1.0 - 5.5 08/20 Normal [facility] HEMATOLOGY Basophils 0.5 % 0.0 - 1.0 08/20 Normal [facility] HEMATOLOGY Monocytes 8.5 % 2.0 - 12.0 08/20 Normal [facility] HEMATOLOGY Eosinophils 0.3 % 0.0 - 4.0 08/20 Normal [facility] HEMATOLOGY Lymphocytes 17.3 % 20.0 - 08/20 LOW [facility] 40.0 [facility] HEMATOLOGY Segs 73.4 % 45.0 - 08/20 Normal [facility] 75.0 [facility] BEDSIDE Comment2 Verify 08/19 NA [facility] GLUCOSE w/Lab Medical TESTING Center CHEMISTRY S Preg Negative Negative Normal [facility] (08/19/2011 15:58:00) Center CHEMISTRY Lipase Lvl 169 U/L 73 - 393 Normal [facility] CHEMISTRY ALT 54 U/L 0 - 65 Normal [facility] CHEMISTRY Alk Phos 110 U/L 39 - 136 Normal [facility] CHEMISTRY Bili Direct 0.1 mg/dL 0.0 - 0.3 Normal [facility] CHEMISTRY Bili Total 0.9 mg/dL 0.2 - 1.3 Normal [facility] CHEMISTRY Albumin Lvl 4.4 g/dL 3.5 - 5.0 Normal [facility] CHEMISTRY Total 8.8 g/dL 6.4 - 8.4 HI [facility] CHEMISTRY Bili 0.8 mg/dL 0.0 - 1.0 Normal [facility] CHEMISTRY AST 36 U/L 0 - 37 Normal [facility] CHEMISTRY Globulin 4.4 g/dL 2.0 - 4.0 HI [facility] CHEMISTRY A/G Ratio 1.0 0.7 - 1.6 Normal [facility] URINALYSIS UA Bacteria Occasional /HPF None Seen Normal [facility] (08/19/2011 15:58:00) Center URINALYSIS UA RBC 3-5 /HPF 0 - 2 ABN [facility] *ABN* [place] (08/19/2011 15:58:00) URINALYSIS UA WBC 3 /HPF 0 - 5 NA [facility] URINALYSIS UA Mucus Few /LPF None Seen Normal [facility] (08/19/2011 15:58:00) Center URINALYSIS UA Amorph Occasional /HPF None Seen [facility] *ABN* [place] (08/19/2011 15:58:00) URINALYSIS UA 0.2 EU/dL 0.1 - 1.0 Normal [facility] Urobilinogen /2011 [facility] URINALYSIS UA Sq Epi Rare /LPF Few Normal [facility] (08/19/2011 15:58:00) Center URINALYSIS Micro? Performed Normal [facility] (08/19/2011 15:58:00) Center URINALYSIS UA Leuk Est Negative Negative Normal [facility] (08/19/2011 15:58:00) Center URINALYSIS UA Nitrite Negative Negative Normal [facility] (08/19/2011 15:58:00) Center URINALYSIS UA pH 5.5 5.0 - 8.0 Normal [facility] Center URINALYSIS UA Blood Trace Negative ABN Medical *ABN* Center (08/19/2011 15:58:00) URINALYSIS UA Bili Negative Negative Normal [facility] (08/19/2011 15:58:00) Center URINALYSIS UA Ketones 80 mg/dL Negative ABN [facility] *ABN* Center (08/19/2011 15:58:00) URINALYSIS UA Glucose >=1000 mg/dL Negative ABN [facility] *ABN* Center (08/19/2011 15:58:00) URINALYSIS UA Protein Negative Negative Normal [facility] (08/19/2011 15:58:00) Center URINALYSIS UA Turbidity Slight Cloudy Clear Normal [facility] (08/19/2011 15:58:00) Center URINALYSIS UA Spec Grav 1.025 <=1.030 NA [facility]2011 [facility] URINALYSIS UA Color Yellow Yellow Normal [facility] (08/19/2011 15:58:00) [place] CHEMISTRY AST 23 U/L 0 - 37 Normal [facility] CHEMISTRY Bili Total 1.0 mg/dL 0.2 - 1.3 Normal [facility] CHEMISTRY Alk Phos 115 U/L 39 - 136 Normal [facility] CHEMISTRY ALT 56 U/L 0 - 65 Normal [facility] CHEMISTRY Total 9.0 g/dL 6.4 - 8.[address] [facility] CHEMISTRY Albumin Lvl 4.8 g/dL 3.5 - 5.0 Normal [facility] CHEMISTRY Globulin 4.2 g/dL 2.0 - 4.0 [facility] CHEMISTRY A/G Ratio 1.1 0.7 - 1.6 Normal [facility] CHEMISTRY B/C Ratio 30 6 - 25 [facility] HEMATOLOGY RBC Morph Normal Normal [facility] (08/19/2011 15:13:00) Center HEMATOLOGY Large Plt Slight None Seen ABN Medical *ABN* Center (08/19/2011 15:13:00) HEMATOLOGY Atypical 0.0 % <=0.0 Normal [facility] Lymphs [facility] HEMATOLOGY Bands 0.0 % 0.0 - 11.0 Normal [facility] CHEMISTRY O2 Sat [place] 74.0 % 40.0 - [place] 70.0 [facility] CHEMISTRY Temp [place] 37.0 [place] NA [facility] CHEMISTRY pO2 [place] 42 mm[Hg] 20 - 49 Normal [facility] CHEMISTRY HCO3 [place] 17.3 22.0 - LOW [place] mMol/L 26.0 /2011 [facility] CHEMISTRY pH [place] 7.34 7.28 - Normal [facility] 7.42 [facility] CHEMISTRY pCO2 [place] 32 mm[Hg] 38 - 52 LOW [facility] CHEMISTRY BE [place] -7 mMol/L -2-2 - 2 LOW [facility] IMMUNOLOGY CDC-HIV 1/2 Negative Negative NA Medical *NA* Center (08/19/2011 14:34:00) Vital Signs Vital Sign Value Date Comments Source Systolic (mm Hg) 131 07/30/2016 [facility] Diastolic (mm Hg) 86 07/30/2016 [facility] Respitory Rate 20 07/30/2016 [facility] Heart Rate 65 07/30/2016 [facility] Temperature Oral (F) 97.4 F 07/30/2016 [facility] Systolic (mm Hg) 169 07/30/2016 [facility] Diastolic (mm Hg) 99 07/30/2016 [facility] Heart Rate 66 07/30/2016 [facility] Temperature Oral (F) 97.2 F 07/30/2016 [facility] Respitory Rate 18 07/30/2016 [facility] Heart Rate 67 07/30/2016 [facility] Temperature Oral (F) 97.0 F 07/30/2016 [facility] Respitory Rate 16 07/30/2016 [facility] Systolic (mm Hg) 122 07/30/2016 [facility] Diastolic (mm Hg) 80 07/30/2016 [facility] Weight 92.273 07/24/2016 [facility] BMI Calculated 36.04 07/24/2016 [facility] Height 160.02 cm 07/24/2016 [facility] Center Respitory Rate 20 06/15/2016 [facility] Center Systolic (mm Hg) 169 06/15/2016 [facility] Center Diastolic (mm Hg) 90 06/15/2016 [facility] Center Respitory Rate 16 06/15/2016 [facility] Systolic (mm Hg) 151 06/15/2016 [facility] Center Diastolic (mm Hg) 73 06/15/2016 [facility] Respitory Rate 22 06/15/2016 [facility] Systolic (mm Hg) 176 06/15/2016 [facility] Center Diastolic (mm Hg) 95 06/15/2016 [facility] Temperature Oral (F) 97.1 F 06/14/2016 [facility] Temperature Oral (F) 97.1 F 06/14/2016 [facility] Temperature Oral (F) 96.8 F 06/12/2016 [facility] Weight 103.182 06/11/2016 [facility] Height 160.02 cm 06/11/2016 [facility] BMI Calculated 40.3 06/11/2016 [facility] Heart Rate 82 06/11/2016 [facility] Heart Rate 81 06/11/2016 [facility] Heart Rate 82 06/10/2016 [facility] Weight 86.364 06/10/2016 [facility] BMI Calculated 33.73 06/10/2016 [facility] Height 160.02 cm 06/10/2016 [facility] Temperature Oral (F) 98.0 F 06/26/2014 [facility] Center Systolic (mm Hg) 111 06/26/2014 [facility] Heart Rate 104 06/26/2014 [facility] Center Diastolic (mm Hg) 70 06/26/2014 [facility] Center Respitory Rate 18 06/26/2014 [facility] Center Systolic (mm Hg) 109 06/26/2014 [facility] Center Diastolic (mm Hg) 66 06/26/2014 [facility] Center Respitory Rate 18 06/26/2014 [facility] Temperature Oral (F) 98.0 F 06/26/2014 [facility] Temperature Oral (F) 98.2 F 06/26/2014 [facility] Respitory Rate 21 06/26/2014 [facility] Center Systolic (mm Hg) 106 06/26/2014 [facility] Center Diastolic (mm Hg) 65 06/26/2014 [facility] Heart Rate 118 06/26/2014 [facility] Heart Rate 113 06/26/2014 [facility] Height 154.94 cm 06/26/2014 [facility] Weight 75 06/26/2014 [facility] BMI Calculated 31.24 06/26/2014 [facility] Respitory Rate 18 04/15/2013 [facility] Diastolic (mm Hg) 89 04/15/2013 [facility] Heart Rate 81 04/15/2013 [facility] Systolic (mm Hg) 149 04/15/2013 [facility] Temperature Oral (F) 98.7 F 04/15/2013 [facility] Respitory Rate 18 04/15/2013 [facility] Diastolic (mm Hg) 87 04/15/2013 [facility] Systolic (mm Hg) 145 04/15/2013 [facility] Temperature Oral (F) 98.2 F 04/15/2013 [facility] Heart Rate 88 04/15/2013 [facility] Height 160.02 cm 04/15/2013 [facility] Weight 63.636 04/15/2013 [facility] Temperature Oral (F) 98.6 F 04/15/2013 [facility] Respitory Rate 18 04/15/2013 [facility] Heart Rate 85 04/15/2013 [facility] Diastolic (mm Hg) 107 04/15/2013 [facility] Systolic (mm Hg) 172 04/15/2013 [facility] Weight 58.636 03/14/2012 [facility] Systolic (mm Hg) 138 12/01/2011 [facility] Respitory Rate 18 12/01/2011 [facility] Heart Rate 90 12/01/2011 [facility] Diastolic (mm Hg) 80 12/01/2011 [facility] Temperature Oral (F) 99.6 F 12/01/2011 [facility] Diastolic (mm Hg) 106 11/30/2011 [facility] Heart Rate 96 11/30/2011 [facility] Center Respitory Rate 18 11/30/2011 [facility] Center Systolic (mm Hg) 187 11/30/2011 [facility] Temperature Oral (F) 99.8 F 11/30/2011 [facility] Respitory Rate 20 11/30/2011 [facility] Center Systolic (mm Hg) 178 11/30/2011 [facility] Center Diastolic (mm Hg) 104 11/30/2011 [facility] Heart Rate 102 11/30/2011 [facility] Temperature Oral (F) 99.8 F 11/30/2011 [facility] Weight 56.818 11/29/2011 [facility] Height 157.48 cm 11/29/2011 [facility] Weight 57.273 11/28/2011 [facility] Weight 66.364 09/18/2011 [facility] Height 154.94 cm 09/18/2011 [facility] Heart Rate 75 09/09/2011 [facility] Center Systolic (mm Hg) 115 09/09/2011 [facility] Center Diastolic (mm Hg) 69 09/09/2011 [facility] Center Respitory Rate 18 09/09/2011 [facility] Temperature Oral (F) 97.5 F 09/09/2011 [facility] Center Diastolic (mm Hg) 68 09/09/2011 [facility] Heart Rate 66 09/09/2011 [facility] Temperature Oral (F) 98.6 F 09/09/2011 [facility] Respitory Rate 20 09/09/2011 [facility] Center Systolic (mm Hg) 118 09/09/2011 [facility] Center Respitory Rate 20 09/09/2011 [facility] Center Diastolic (mm Hg) 71 09/09/2011 [facility] Center Systolic (mm Hg) 123 09/09/2011 [facility] Heart Rate 67 09/09/2011 [facility] Temperature Oral (F) 98.7 F 09/09/2011 [facility] Weight 68.182 09/01/2011 [facility] Height 154.94 cm 09/01/2011 [facility] Height 154.94 cm 09/01/2011 [facility] Weight 68.182 09/01/2011 [facility] Center Respitory Rate 20 08/23/2011 [facility] Heart Rate 93 08/23/2011 [facility] Center Systolic (mm Hg) 136 08/23/2011 [facility] Center Diastolic (mm Hg) 82 08/23/2011 [facility] Temperature Oral (F) 97.7 F 08/23/2011 [facility] Heart Rate 101 08/23/2011 [facility] Temperature Oral (F) 98.2 F 08/23/2011 [facility] Center Diastolic (mm Hg) 105 08/23/2011 [facility] Center Systolic (mm Hg) 172 08/23/2011 [facility] Center Respitory Rate 20 08/23/2011 [facility] Systolic (mm Hg) 158 08/23/2011 [facility] Diastolic (mm Hg) 98 08/23/2011 [facility] Temperature Oral (F) 98.3 F 08/23/2011 [facility] Heart Rate 95 08/23/2011 [facility] Respitory Rate 20 08/22/2011 [facility] Height 154.94 cm 08/20/2011 [facility] Weight 67.273 08/20/2011 [facility] Height 154.94 cm 08/19/2011 [facility] Weight 67.273 08/19/2011 [facility] Encounters Location Location Encounter Encounter Reason Attending ADM DC Status Source Details Type Number For Provider Date Date Visit [facility] Inpatient [id number] DKA [place] 08/22 Active [facility] 0 AHMED /2011 [facility] Inpatient [id number] ELBOW [place] 08/31 09/08 Active [facility] 1 ABSCESS/ OMIDVAR /2011 [facility] CEMIA [facility] Emergency [id number] CASA 09/17 09/17 Active [facility] 2 BUBLEWICZ /2011 [facility] OU [id number] N/V OSMAR 11/27 11/29 Active [facility] 3 INABILIT GUNNAR /2011 [facility] Y TO Center TOLERATE PO Emergency [id number] HUNG HERNANDEZ 03/14 03/14 Active [facility] Emergency [id number] ABD PAIN OMAIRA 04/14 04/15 Active [facility] 7 MARRY /2012 [facility] [place] [id number] Atul 06/26 06/26 [facility] Emergency 8 Ostermayer /2014 [facility] Inpatient [id number] Joe 06/10 06/15 [facility] 9 Franck /2015 [facility] Inpatient [id number] Danae Cha 07/24 07/30 [facility] 0 /2016 [facility] Preadmit [id number] NAUSEA, CASA Active [facility] 8 VOMITING LEOLNER [facility] Outpatient [id number] GASTROPE NON Cancel [address] Outpatient [id number] GASTROPE NON Cancel [address] Center Procedures Procedure Code Date Perfomer Comments Source Emergency 99226 04/15/2013 [facility] department visit for the evaluation and management of a patient, which requires these 3 kamara components within the constraints imposed by the urgency of the patient's clinical condition and/or mental status: A comprehensive history; A comprehensi Injection or 99.29 04/15/2013 [facility] Infusion of Other Therapeutic or Prophylactic Substance Intravenous 34358 04/15/2013 [facility] infusion, hydration; each additional hour (List separately in addition to code for primary procedure) Therapeutic, 92113 04/15/2013 [facility] prophylactic, or diagnostic injection (specify substance or drug); each additional sequential intravenous push of a new substance/drug (List separately in addition to code for primary procedure) Therapeutic, 29725 04/15/2013 [facility] prophylactic, or diagnostic injection (specify substance or drug); intravenous push, single or initial substance/drug section [id number] [facility] Tubal ligation [id number] [facility]
--- OUTSIDE RECORDS SUMMARY | 2018-06-18 11:42 | XMS REPORT | CCD ---
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 Medications Medication Instructions Start Date End Date Status NS (Bolus) IV 1,000 mL 1,000 mL, Rate: 1,000 11/28/2011 11/30/2011 Discontinued ml/hr, Infuse over: 1 hr, Route: IV, Dosing Weight 57.273 kg, Total Volume: 1,000, Start date: 11/28/11 17:48:00, Duration: 30 day, Stop date: 12/28/11 17:47:00 NS (Bolus) IV 1,000 mL 1,000 mL, Rate: 1,000 11/28/2011 11/30/2011 Discontinued ml/hr, Infuse over: 1 hr, Route: IV, Dosing Weight 57.273 kg, Total Volume: 1,000, Start date: 11/28/11 15:36:00, Duration: 30 day, Stop date: 12/28/11 15:35:00 Ativan 2 mg, 1 mL, Route: IVP, 11/28/2011 11/28/2011 Completed Drug form: INJ, ONCE, Priority: STAT, Start date: 11/28/11 15:35:00, Stop date: 11/28/11 15:35:00 morphine Sulfate 2 mg, Route: IVP, ONCE, 11/29/2011 11/29/2011 Discontinued Start date: 11/29/11 16:33:00, Stop date: 11/29/11 16:33:00 Reglan 10 mg oral tablet 10 mg, 1 tab, PO, 11/30/2011 Ordered QID-Before Meals, 120 tab, 1, 1, Substitution Allowed morphine Sulfate 2 mg, 0.5 mL, Route: 11/29/2011 11/29/2011 Completed IVP, Drug form: INJ, ONCE, Start date: 11/29/11 16:32:00, Stop date: 11/29/11 16:32:00 metoclopramide 10 mg, 2 mL, Route: IVP, 11/28/2011 11/28/2011 Completed Drug form: INJ, ONCE, Priority: STAT, Start date: 11/28/11 23:01:00, Stop date: 11/28/11 23:01:00 insulin isophane-NPH 10 unit, 0.1 mL, Route: 11/29/2011 11/30/2011 Discontinued SUB-Q, Drug form: INJ, Bedtime, Start date: 11/29/11 21:00:00, Duration: 30 day, Stop date: 12/28/11 21:00:00 insulin isophane-NPH 14 unit, 0.14 mL, Route: 11/29/2011 11/30/2011 Discontinued SUB-Q, Drug form: INJ, Daily, Start date: 11/29/11 9:00:00, Duration: 30 day, Stop date: 12/28/11 9:00:00 insulin aspart 10 unit, 0.1 mL, Route: 11/29/2011 11/30/2011 Discontinued SUB-Q, Drug form: SOLN, TID-Before Meals, PRN Blood Glucose Results, Start date: 11/29/11 1:30:00, Duration: 30 day, Stop date: 12/29/11 1:29:00 insulin aspart 8 unit, 0.08 mL, Route: 11/29/2011 11/30/2011 Discontinued SUB-Q, Drug form: SOLN, TID-Before Meals, PRN Blood Glucose Results, Start date: 11/29/11 1:30:00, Duration: 30 day, Stop date: 12/29/11 1:29:00 insulin aspart 6 unit, 0.06 mL, Route: 11/29/2011 11/30/2011 Discontinued SUB-Q, Drug form: SOLN, TID-Before Meals, PRN Blood Glucose Results, Start date: 11/29/11 1:30:00, Duration: 30 day, Stop date: 12/29/11 1:29:00 insulin aspart 4 unit, 0.04 mL, Route: 11/29/2011 11/30/2011 Discontinued SUB-Q, Drug form: SOLN, TID-Before Meals, PRN Blood Glucose Results, Start date: 11/29/11 1:30:00, Duration: 30 day, Stop date: 12/29/11 1:29:00 insulin aspart 2 unit, 0.02 mL, Route: 11/29/2011 11/30/2011 Discontinued SUB-Q, Drug form: SOLN, TID-Before Meals, PRN Blood Glucose Results, Start date: 11/29/11 1:30:00, Duration: 30 day, Stop date: 12/29/11 1:29:00 Dextrose 50% Syringe 25 gm, 50 mL, Route: 11/29/2011 11/30/2011 Discontinued IVP, Drug Form: INJ, PRN, PRN Blood Glucose Results, Start date: 11/29/11 1:30:00, Duration: 30 day, Stop date: 12/29/11 1:29:00 glucagon 1 mg, Route: IM, Drug 11/29/2011 11/30/2011 Discontinued form: PDR/INJ, PRN, PRN Blood Glucose Results, Start date: 11/29/11 1:30:00, Duration: 30 day, Stop date: 12/29/11 1:29:00 Dextrose 50% Syringe 12.5 gm, 25 mL, Route: 11/29/2011 11/30/2011 Discontinued IVP, Drug Form: INJ, PRN, PRN Blood Glucose Results, Start date: 11/29/11 1:30:00, Duration: 30 day, Stop date: 12/29/11 1:29:00 normal saline 0.9% IV 1,000 mL, Rate: 200 11/29/2011 11/30/2011 Discontinued 1,000 mL ml/hr, Infuse over: 5 hr, Route: IV, Dosing Weight 57.273 kg, Total Volume: 1,000, Start date: 11/29/11 1:29:00, Duration: 30 day, Stop date: 12/29/11 1:28:00 Zofran 4 mg, 2 mL, Route: IVP, 11/28/2011 11/28/2011 Completed Drug form: INJ, ONCE, Priority: STAT, Start date: 11/28/11 21:31:00, Stop date: 11/28/11 21:31:00 Saline Flush 0.9% 5 ml, Route: IVP, Drug 11/29/2011 11/30/2011 Discontinued Form: INJ, PRN, PRN Line Flush, Start date: 11/29/11 1:28:00, Duration: 30 day, Stop date: 12/29/11 1:27:00 ondansetron 4 mg, 2 mL, Route: IVP, 11/29/2011 11/30/2011 Discontinued Drug form: INJ, Q8H, PRN Nausea & Vomiting, Start date: 11/29/11 1:28:00, Duration: 30 day, Stop date: 12/29/11 1:27:00 Reglan 10 mg, 2 mL, Route: IVP, 11/29/2011 11/30/2011 Discontinued Drug form: INJ, Q6H, Priority: STAT, Start date: 11/29/11 1:28:00, Duration: 30 day, Stop date: 12/29/11 0:00:00 Protonix 40 mg, Route: IV, Drug 11/29/2011 11/29/2011 Completed form: INJ, ONCE, Priority: STAT, Start date: 11/29/11 1:28:00, Stop date: 11/29/11 1:28:00 amLODipine 5 mg, 1 tab, Route: PO, 11/29/2011 11/29/2011 Completed Drug form: TAB, ONCE, Priority: NOW, Start date: 11/29/11 20:11:00, Stop date: 11/29/11 20:11:00 Tylenol 650 mg, 2 tab, Route: 11/29/2011 11/30/2011 Discontinued PO, Drug form: TAB, Q4H, PRN Pain, Start date: 11/29/11 14:16:00, Duration: 30 day, Stop date: 12/29/11 14:15:00 Insulin regular 8 unit, 0.08 mL, Route: 11/29/2011 11/30/2011 Discontinued SUB-Q, Drug form: SOLN, Bedtime, Start date: 11/29/11 21:00:00, Duration: 30 day, Stop date: 12/28/11 21:00:00 Insulin regular 10 unit, 0.1 mL, Route: 11/29/2011 11/30/2011 Discontinued SUB-Q, Drug form: SOLN, Daily, Start date: 11/29/11 9:00:00, Duration: 30 day, Stop date: 12/28/11 9:00:00 trazodone 100 mg oral 200 mg, 2 tab, Route: 11/29/2011 11/30/2011 Discontinued tablet PO, Drug form: TAB, Bedtime, Start date: 11/29/11 21:00:00, Duration: 30 day, Stop date: 12/28/11 21:00:00 Effexor XR 75 mg, 1 cap, Route: PO, 11/29/2011 11/30/2011 Discontinued Drug form: ERCAP, Daily, Start date: 11/29/11 9:00:00, Duration: 30 day, Stop date: 12/28/11 9:00:00 Geodon 120 mg, 3 cap, Route: 11/29/2011 11/30/2011 Discontinued PO, Drug form: CAP, Bedtime, Start date: 11/29/11 21:00:00, Duration: 30 day, Stop date: 12/28/11 21:00:00 lisinopril 40 mg, 2 tab, Route: PO, 11/29/2011 11/30/2011 Discontinued Drug form: TAB, Daily, Start date: 11/29/11 9:00:00, Duration: 30 day, Stop date: 12/28/11 9:00:00 benztropine 1 mg, 1 tab, Route: PO, 11/29/2011 11/30/2011 Discontinued Drug form: TAB, BID, Start date: 11/29/11 9:00:00, Duration: 30 day, Stop date: 12/28/11 17:00:00 amLODipine 5 mg, 1 tab, Route: PO, 11/29/2011 11/30/2011 Discontinued Drug form: TAB, Daily, Start date: 11/29/11 9:00:00, Duration: 30 day, Stop date: 12/28/11 9:00:00 Vital Signs Most recent to oldest 1 2 3 [Reference Range]: Height 157.48 cm (11/29/2011 06:40:00) Temperature Oral 99.6 DegF 99.8 DegF 99.8 DegF [96.4-99.1 DegF] *HI* *HI* *HI* (11/30/2011 19:33:00) (11/30/2011 16:00:00) (11/30/2011 11:30:00) Systolic Blood Pressure 138 mmHg 187 mmHg 178 mmHg [90-140 mmHg] (11/30/2011 19:33:00) *HI* *HI* (11/30/2011 16:00:00) (11/30/2011 11:30:00) Diastolic Blood Pressure 80 mmHg 106 mmHg 104 mmHg [60-90 mmHg] (11/30/2011 19:33:00) *HI* *HI* (11/30/2011 16:00:00) (11/30/2011 11:30:00) Respiratory Rate [14-20 18 BRMIN 18 BRMIN 20 BRMIN BRMIN] (11/30/2011 19:33:00) (11/30/2011 16:00:00) (11/30/2011 11:30:00) Peripheral Pulse Rate 90 bpm 96 bpm 102 bpm [60-100 bpm] (11/30/2011 19:33:00) (11/30/2011 16:00:00) *HI* (11/30/2011 11:30:00) Weight 56.818 kg 57.273 kg (11/29/2011 06:40:00) (11/28/2011 12:16:00) Results BEDSIDE GLUCOSE TESTING Most recent to oldest 1 2 3 [Reference Range]: Gluc POC Lifscn [70-99 167 mg/dL 1 189 mg/dL 2 110 mg/dL 3 mg/dL] *HI* *HI* *HI* (11/30/2011 18:43:00) (11/30/2011 12:40:00) (11/30/2011 08:34:00) Comment1 Notify RN/MD Notify RN/MD Notify RN/MD *NA* *NA* *NA* (11/30/2011 18:43:00) (11/30/2011 12:40:00) (11/30/2011 08:34:00) Comment2 Sliding Scale Sliding Scale Sliding Scale *NA* *NA* *NA* (11/30/2011 18:43:00) (11/30/2011 12:40:00) (11/30/2011 08:34:00) 1Interpretive Data: Upper Reportable Limit: 200 mg/dL.2Interpretive Data: Upper Reportable Limit: 200 mg/dL.3Interpretive Data: Upper Reportable Limit: 200 mg/dL.URINALYSIS Most recent to oldest [Reference Range]: 1 2 3 UA Turbidity [Clear] Clear (11/28/2011 19:00:00) UA Color [Yellow] Yellow *NA* (11/28/2011 19:00:00) UA pH [5.0-8.0] 7.0 (11/28/2011 19:00:00) UA Spec Grav [<=1.030] 1.020 (11/28/2011 19:00:00) UA Glucose [Negative mg/dL] >=1000 mg/dL *ABN* (11/28/2011 19:00:00) UA Blood [Negative] Negative (11/28/2011 19:00:00) UA Ketones [Negative mg/dL] >=80 mg/dL *ABN* (11/28/2011 19:00:00) UA Protein [Negative mg/dL] Negative mg/dL (11/28/2011 19:00:00) UA Urobilinogen [0.1-1.0 EU/dL] 0.2 EU/dL (11/28/2011 19:00:00) UA Bili [Negative] Negative *NA* (11/28/2011 19:00:00) UA Leuk Est [Negative] Negative (11/28/2011 19:00:00) UA Nitrite [Negative] Negative (11/28/2011 19:00:00) UA WBC [0-5] Occasional *NA* (11/28/2011 19:00:00) UA RBC [0-2] None Seen (11/28/2011 19:00:00) UA Sq Epi [Few /LPF] Occasional /LPF (11/28/2011 19:00:00) Micro? Performed (11/28/2011 19:00:00) CHEMISTRY Most recent to oldest [Reference Range]: 1 2 3 Sodium Lvl [135-145 mEq/L] 138 mEq/L (11/28/2011 15:00:00) Potassium Lvl [3.5-5.1 mEq/L] 3.8 mEq/L (11/28/2011 15:00:00) Chloride Lvl [95-109 mEq/L] 98 mEq/L (11/28/2011 15:00:00) CO2 [24-32 mEq/L] 23 mEq/L *LOW* (11/28/2011 15:00:00) AGAP [10.0-20.0 mEq/L] 20.8 mEq/L *HI* (11/28/2011 15:00:00) Creatinine Lvl [0.5-1.4 mg/dL] 0.7 mg/dL (11/28/2011 15:00:00) BUN [7-22 mg/dL] 9 mg/dL (11/28/2011 15:00:00) B/C Ratio [6-25] 13 (11/28/2011 15:00:00) Glucose Lvl [70-99 mg/dL] 269 mg/dL 4 *HI* (11/28/2011 15:00:00) Total Protein [6.4-8.4 g/dL] 6.7 g/dL (11/28/2011 15:00:00) Albumin Lvl [3.5-5.0 g/dL] 4.2 g/dL (11/28/2011 15:00:00) Globulin [2.0-4.0 g/dL] 2.5 g/dL (11/28/2011 15:00:00) A/G Ratio [0.7-1.6] 1.7 *HI* (11/28/2011 15:00:00) Calcium Lvl [8.5-10.5 mg/dL] 9.3 mg/dL (11/28/2011 15:00:00) ALT [0-65 U/L] 32 U/L (11/28/2011 15:00:00) AST [0-37 U/L] 18 U/L (11/28/2011 15:00:00) Alk Phos [39-136 U/L] 62 U/L (11/28/2011 15:00:00) Bili Total [0.2-1.3 mg/dL] 0.7 mg/dL (11/28/2011 15:00:00) Lipase Lvl [73-393 U/L] 125 U/L (11/28/2011 15:00:00) Lactic Acid Lvl [0.5-2.2 mMol/L] 1.6 mMol/L (11/28/2011 15:00:00) U Amph Scr [Negative] Negative *NA* (11/28/2011 14:51:00) U Kelly Scr [Negative] Negative *NA* (11/28/2011 14:51:00) U Benzodia Scr [Negative] Negative *NA* (11/28/2011 14:51:00) U Cocaine Scr [Negative] Negative *NA* (11/28/2011 14:51:00) U Opiate Scr [Negative] Negative *NA* (11/28/2011 14:51:00) U Phencyc Scr [Negative] Negative *NA* (11/28/2011 14:51:00) U Cannab Scr [Negative] Negative *NA* (11/28/2011 14:51:00) UDS Note See Note 5 *NA* (11/28/2011 14:51:00) U Preg [Negative] Negative (11/28/2011 19:00:00) pH Roberth [7.28-7.42] 7.45 *HI* (11/28/2011 15:41:00) pCO2 Roberth [38-52 mmHg] 41 mmHg (11/28/2011 15:41:00) pO2 Roberth [20-49 mmHg] 60 mmHg *HI* (11/28/2011 15:41:00) HCO3 Roberth [22.0-26.0 mMol/L] 28.5 mMol/L *HI* (11/28/2011 15:41:00) BE Roberth [-2-2 mMol/L] 4 mMol/L *HI* (11/28/2011 15:41:00) O2 Sat Roberth [40.0-70.0 %] 92.0 % *HI* (11/28/2011 15:41:00) Temp Roberth 37.0 DegC *NA* (11/28/2011 15:41:00) 4Interpretive Data: Adult reference range values reflect the clinical guidelinesof the [place] [employer].5Interpretive Data: Drugs reported as positive have not been confirmed by a second method and should be used for medical purposes only. To orderconfirmation, contact laboratory. note : Below are cut-off concentrations for all urine drugs of abuse performed in the laboratory. Some drugs listed in the table may not be included in this panel.Description Cut-off concentration Amphetamine 1000 ng/mLBarbiturates 200 ng/mLBenzodiazepines 300 ng/mLCocaine metabolites 300 ng /mLOpiates 300 ng/mLPhencyclidine 25 ng/ mLPropoxyphene 300 ng/mLMarijuana metabolites 50 ng/ mLMethadone 300 ng/mLUrine alcohol 20 mg/ dLHEMATOLOGY Most recent to oldest [Reference Range]: 1 2 3 WBC [3.7-10.4 K/CMM] 6.6 K/CMM (11/28/2011 15:00:00) RBC [4.20-5.40 M/CMM] 3.90 M/CMM *LOW* (11/28/2011 15:00:00) Hgb [12.0-16.0 g/dL] 12.0 g/dL (11/28/2011 15:00:00) Hct [36.0-48.0 %] 33.6 % *LOW* (11/28/2011 15:00:00) MCV [81.0-99.0 fL] 86.1 fL (11/28/2011 15:00:00) MCH [27.0-31.0 pg] 30.7 pg (11/28/2011 15:00:00) MCHC [32.0-36.0 g/dL] 35.6 g/dL (11/28/2011 15:00:00) RDW [11.5-14.5 %] 12.4 % (11/28/2011 15:00:00) Platelet [133-450 K/CMM] 161 K/CMM (11/28/2011 15:00:00) MPV [7.4-10.4 fL] 10.8 fL *HI* (11/28/2011 15:00:00) Segs [45.0-75.0 %] 86.2 % *HI* (11/28/2011 15:00:00) Lymphocytes [20.0-40.0 %] 11.7 % *LOW* (11/28/2011 15:00:00) Monocytes [2.0-12.0 %] 1.9 % *LOW* (11/28/2011 15:00:00) Eosinophils [0.0-4.0 %] 0.2 % (11/28/2011 15:00:00) Basophils [0.0-1.0 %] 0.0 % (11/28/2011 15:00:00) Segs-Bands # [1.5-8.1 K/CMM] 5.7 K/CMM (11/28/2011 15:00:00) Lymphocytes # [1.0-5.5 K/CMM] 0.8 K/CMM *LOW* (11/28/2011 15:00:00) Monocytes # [0.0-0.8 K/CMM] 0.1 K/CMM (11/28/2011 15:00:00) Eosinophils # [0.0-0.5 K/CMM] 0.0 K/CMM (11/28/2011 15:00:00) Basophils # [0.0-0.2 K/CMM] 0.0 K/CMM (11/28/2011 15:00:00) Anisocyte [None Seen] 1+ *ABN* (11/28/2011 15:00:00) Neut Vac [None Seen] Slight *ABN* (11/28/2011 15:00:00) Large Plt [None Seen] Slight *ABN* (11/28/2011 15:00:00)
--- OUTSIDE RECORDS SUMMARY | 2018-06-18 11:43 | XMS REPORT | CCD ---
:1980 Author Organization [facility] Care Team Providers Name Role Phone Cricket Beaulieu Consulting Provider Bismark Cox Consulting Provider Allergies, Adverse Reactions, Alerts Substance Reaction Status codeine Active penicillins Active Problem List Condition Effective Dates Status DKA (diabetic ketoacidoses) 08/19/2011 Active Hyperglycemia 08/20/2011 Active Hypertension Active Hypokalemia 08/23/2011 Active Hypomagnesemia Active Medications Medication Instructions Start Date End Date Status potassium chloride 20 mEq 60 mEq, 3 tab, Route: PO, 08/23/2011 08/23/2011 Completed oral tablet, extended Drug form: ERTAB, ONCE, release Start date: 08/23/11 6:27:00, Stop date: 08/23/11 6:27:00 magnesium sulfate 2 gm, 50 mL, Route: IVPB, 08/23/2011 08/23/2011 Completed Drug form: INJ, ONCE, Total dose=2 gm, Start date: 08/23/11 6:26:00, Duration: 1 doses or times, Stop date: 08/23/11 6:26:00 insulin regular human 5 Units, SUB-Q, TID, 30 vial, 3, 3, Substitution Allowed , before breakfast lunch and dinner, SOLN 08/23/2011 Ordered recombinant 100 units/mL before breakfast lunch and dinner injectable solution ondansetron 8 mg, Route: IVP, Drug 08/19/2011 08/19/2011 Completed form: INJ, ONCE, Priority: STAT, Start date: 08/19/11 15:57:00, Stop date: 08/19/11 15:57:00 Effexor XR 75 mg oral 75 mg, 1 cap, PO, Daily, 08/19/2011 Ordered capsule, extended release 30 cap, Substitution Allowed morphine Sulfate 4 mg, Route: IVP, ONCE, 08/19/2011 08/19/2011 Completed Priority: STAT, Start date: 08/19/11 15:57:00, Stop date: 08/19/11 15:57:00 hydrALAZINE 10 mg, 0.5 mL, Route: 08/21/2011 08/23/2011 Discontinued IVP, Drug form: INJ, Q6H, PRN Hypertension, Start date: 08/21/11 8:43:00, Duration: 30 day, Stop date: 09/20/11 8:42:00 Reglan 10 mg, Route: IV, ONCE, 08/19/2011 08/19/2011 Completed Start date: 08/19/11 15:57:00, Stop date: 08/19/11 15:57:00 Lactated Ringers (Bolus) 1,000 mL, Rate: 1,000 08/19/2011 08/19/2011 Completed IV 1000 mL ml/hr, Infuse over: 1 hr, Route: IV, Total Volume: 1,000, Bolus Dose, Priority: STAT, Start date: 08/19/11 15:12:00, Duration: 1 doses or times, Stop date: 08/19/11 16:11:00 insulin isophane-NPH 18 unit, 0.18 mL, Route: 08/20/2011 08/23/2011 Discontinued SUB-Q, Drug form: INJ, Q12H, Start date: 08/20/11 2:58:00, Stop date: 09/18/11 21:00:00 Geodon 120 mg, 3 cap, Route: PO, 08/21/2011 08/23/2011 Discontinued Drug form: CAP, Bedtime, Start date: 08/21/11 21:00:00, Duration: 30 day, Stop date: 09/19/11 21:00:00 Phenergan 6.25 mg, 0.25 mL, Route: 08/20/2011 08/23/2011 Discontinued IVPB, Drug form: INJ, Q6H, PRN Nausea & Vomiting, Start date: 08/20/11 15:41:00, Stop date: 09/19/11 15:40:00 Insulin regular 10 unit, SUB-Q, BID, 08/20/2011 08/23/2011 Discontinued Substitution Allowed insulin isophane-NPH 10 unit, SUB-Q, BID, 08/20/2011 08/23/2011 Discontinued Substitution Allowed GI cocktail 40 mL, Route: PO, Drug 08/19/2011 08/19/2011 Completed Form: SUSP, ONCE, STAT, Start date: 08/19/11 16:04:00, Stop date: 08/19/11 16:04:00 Protonix 40 mg, Route: IVP, Drug 08/19/2011 08/19/2011 Completed form: INJ, ONCE, Start date: 08/19/11 16:04:00, Stop date: 08/19/11 16:04:00 trazodone 100 mg oral 200 mg, 2 tab, PO, 08/20/2011 Ordered tablet Bedtime, 90 tab, Substitution Allowed, TAB insulin aspart 2 unit, 0.02 mL, Route: 08/20/2011 08/23/2011 Discontinued SUB-Q, Drug form: SOLN, TID-Before Meals, PRN Blood Glucose Results, Start date: 08/20/11 2:48:00, Duration: 30 day, Stop date: 09/19/11 2:47:00 insulin aspart 4 unit, 0.04 mL, Route: 08/20/2011 08/23/2011 Discontinued SUB-Q, Drug form: SOLN, TID-Before Meals, PRN Blood Glucose Results, Start date: 08/20/11 2:48:00, Duration: 30 day, Stop date: 09/19/11 2:47:00 insulin aspart 10 unit, 0.1 mL, Route: 08/20/2011 08/23/2011 Discontinued SUB-Q, Drug form: SOLN, TID-Before Meals, PRN Blood Glucose Results, Start date: 08/20/11 2:48:00, Duration: 30 day, Stop date: 09/19/11 2:47:00 insulin aspart 6 unit, 0.06 mL, Route: 08/20/2011 08/23/2011 Discontinued SUB-Q, Drug form: SOLN, TID-Before Meals, PRN Blood Glucose Results, Start date: 08/20/11 2:48:00, Duration: 30 day, Stop date: 09/19/11 2:47:00 insulin aspart 8 unit, 0.08 mL, Route: 08/20/2011 08/23/2011 Discontinued SUB-Q, Drug form: SOLN, TID-Before Meals, PRN Blood Glucose Results, Start date: 08/20/11 2:48:00, Duration: 30 day, Stop date: 09/19/11 2:47:00 glucagon 1 mg, Route: IM, Drug 08/20/2011 08/23/2011 Discontinued form: PDR/INJ, PRN, PRN Blood Glucose Results, Start date: 08/20/11 2:48:00, Duration: 30 day, Stop date: 09/19/11 3:47:00 Dextrose 50% Syringe 25 gm, 50 mL, Route: IVP, 08/20/2011 08/23/2011 Discontinued Drug Form: INJ, PRN, PRN Blood Glucose Results, Start date: 08/20/11 2:48:00, Duration: 30 day, Stop date: 09/19/11 3:47:00 Insulin regular 3 unit, Route: SUB-Q, 08/20/2011 08/20/2011 Discontinued Bedtime, PRN Blood Glucose Results, Start date: 08/20/11 2:48:00, Duration: 30 day, Stop date: 09/19/11 2:47:00 Insulin regular 4 unit, Route: SUB-Q, 08/20/2011 08/20/2011 Discontinued Bedtime, PRN Blood Glucose Results, Start date: 08/20/11 2:48:00, Duration: 30 day, Stop date: 09/19/11 2:47:00 Insulin regular 2 unit, Route: SUB-Q, 08/20/2011 08/20/2011 Discontinued Bedtime, PRN Blood Glucose Results, Start date: 08/20/11 2:48:00, Duration: 30 day, Stop date: 09/19/11 2:47:00 Insulin regular 1 unit, Route: SUB-Q, 08/20/2011 08/20/2011 Discontinued Bedtime, PRN Blood Glucose Results, Start date: 08/20/11 2:48:00, Duration: 30 day, Stop date: 09/19/11 2:47:00 insulin isophane-NPH 10 unit, Route: SUB-Q, 08/20/2011 08/20/2011 Canceled Q12H, Start date: 08/20/11 9:00:00, Duration: 30 day, Stop date: 09/18/11 21:00:00 Dextrose 50% Syringe 12.5 gm, 25 mL, Route: 08/20/2011 08/23/2011 Discontinued IVP, Drug Form: INJ, PRN, PRN Blood Glucose Results, Start date: 08/20/11 2:48:00, Duration: 30 day, Stop date: 09/19/11 3:47:00 enoxaparin 40 mg, 0.4 mL, Route: 08/20/2011 08/23/2011 Discontinued SUB-Q, Drug form: INJ, Daily, Priority: Routine, Start date: 08/20/11 3:00:00, Duration: 30 day, Stop date: 09/18/11 9:00:00 Geodon 60 mg, 3 cap, Route: PO, 08/20/2011 08/20/2011 Completed Drug form: CAP, ONCE, Start date: 08/20/11 21:00:00, Stop date: 08/20/11 21:00:00 lisinopril 10 mg, 1 tab, Route: PO, 08/21/2011 08/21/2011 Completed Drug form: TAB, ONCE, Start date: 08/21/11 14:06:00, Stop date: 08/21/11 14:06:00 Sodium Chloride 0.9% 100 mL, Rate: Titrate, 08/19/2011 08/20/2011 Discontinued (titrate) 100 mL + Route: IV, Total Volume: Insulin (regular) Titrate 100 ml, Duration: 30 day, IV additive 100 unit Stop date: 09/18/11 16:16:00, Replace Every: 24 hr calcium chloride 1 gm, Route: IVPB, ONCE, 08/23/2011 08/23/2011 Completed Priority: STAT, Start date: 08/23/11 7:28:00, Stop date: 08/23/11 7:28:00 GI cocktail 30 ml, Route: PO, Drug 08/19/2011 08/19/2011 Completed Form: SUSP, ONCE, STAT, Start date: 08/19/11 23:12:00, Stop date: 08/19/11 23:12:00 potassium chloride 20 mEq 40 mEq, 2 tab, Route: PO, 08/22/2011 08/22/2011 Completed oral tablet, extended Drug form: ERTAB, Daily, release Start date: 08/22/11 9:00:00, Duration: 30 day, Stop date: 08/22/11 12:00:00 magnesium sulfate 2 gm, 50 mL, Route: IVPB, 08/22/2011 08/22/2011 Completed Drug form: INJ, ONCE, Total dose=2 gm, Start date: 08/22/11 7:26:00, Duration: 1 doses or times, Stop date: 08/22/11 7:26:00 Lactated Ringers IV 1,000 1,000 mL, Rate: 250 08/19/2011 08/20/2011 Discontinued mL ml/hr, Infuse over: 4 hr, Route: IV, Total Volume: 1,000, Priority: STAT, Start date: 08/19/11 17:03:00, Duration: 30 day, Stop date: 09/18/11 17:02:00 ondansetron 4 mg, Route: PO, Drug 08/19/2011 08/19/2011 Completed form: TABDIS, ONCE, Priority: STAT, Start date: 08/19/11 23:10:00, Stop date: 08/19/11 23:10:00 Lactated Ringers (Bolus) 1,000 mL, Rate: 1,000 08/19/2011 08/19/2011 Completed IV 1000 mL ml/hr, Infuse over: 1 hr, Route: IV, Total Volume: 1,000, Bolus Dose, Priority: STAT, Start date: 08/19/11 23:10:00, Duration: 1 doses or times, Stop date: 08/20/11 0:09:00 potassium phosphate 15 mmol, 5 mL, Route: IV, 08/20/2011 08/20/2011 Completed ONCE, Start date: 08/20/11 8:30:00, Stop date: 08/20/11 8:30:00 Insulin regular 6 unit, 0.06 mL, Route: 08/20/2011 08/20/2011 Completed SUB-Q, Drug form: SOLN, ONCE, Start date: 08/20/11 3:38:00, Stop date: 08/20/11 3:38:00 magnesium sulfate 2 gm, 50 mL, Route: IVPB, 08/22/2011 08/22/2011 Completed Drug form: INJ, ONCE, Total dose=2 gm, Start date: 08/22/11 10:26:00, Duration: 1 doses or times, Stop date: 08/22/11 10:26:00 potassium chloride 40 mEq, 2 tab, Route: PO, 08/23/2011 08/23/2011 Canceled Drug form: ERTAB, BID, Start date: 08/23/11 9:00:00, Duration: 2 doses or times, Stop date: 08/23/11 17:00:00 calcium gluconate 1,000 mg, 10 mL, Route: 08/22/2011 08/22/2011 Completed IVPB, ONCE, Start date: 08/22/11 10:25:00, Stop date: 08/22/11 10:25:00 lisinopril 40 mg, 2 tab, Route: PO, 08/21/2011 08/23/2011 Discontinued Drug form: TAB, Daily, Start date: 08/21/11 9:00:00, Stop date: 09/19/11 9:00:00 potassium phosphate 15 mmol, Route: IVPB, 08/20/2011 08/20/2011 Deleted PRN, PRN Abnormal Lab Result, Start date: 08/20/11 6:47:00, Duration: 30 day, Stop date: 09/19/11 7:46:00 Dextrose 50% Syringe 25 gm, 50 ml, Route: IVP, 08/20/2011 08/23/2011 Discontinued Drug Form: INJ, PRN, PRN Blood Glucose Results, Start date: 08/20/11 2:46:00, Duration: 30 day, Stop date: 09/19/11 3:45:00 insulin isophane-NPH 10 unit, Route: SUB-Q, 08/20/2011 08/20/2011 Completed ONCE, Start date: 08/20/11 10:00:00, Stop date: 08/20/11 10:00:00 benztropine 1 mg oral 1 mg, 1 tab, PO, BID, 60 08/20/2011 Ordered tablet tab, Substitution Allowed, TAB potassium chloride 20 mEq, 100 mL, Route: 08/20/2011 08/20/2011 Completed IVPB, Drug form: INJ, Q2H, Total dose=80 mEq, Start date: 08/20/11 8:00:00, Duration: 4 doses or times, Stop date: 08/20/11 14:00:00 Geodon 60 mg oral capsule 120 mg, 2 cap, PO, 08/20/2011 Ordered Bedtime, 60 cap, Substitution Allowed, CAP amLODipine 5 mg oral 5 mg, 1 tab, PO, Daily, 08/23/2011 Ordered tablet 30 tab, 3, 3, Substitution Allowed, TAB Cogentin 1 mg, 1 tab, Route: PO, 08/20/2011 08/23/2011 Discontinued Drug form: TAB, Q12H, Start date: 08/20/11 21:00:00, Duration: 30 day, Stop date: 09/19/11 9:00:00 lisinopril 20 mg oral 40 mg, 2 tab, PO, Daily, 08/23/2011 Ordered tablet 60 tab, 3, 3, Substitution Allowed, TAB ondansetron 4 mg, Route: IVP, Drug 08/20/2011 08/20/2011 Completed form: INJ, ONCE, Priority: STAT, Start date: 08/20/11 1:42:00, Stop date: 08/20/11 1:42:00 Insulin regular 7 unit, 0.07 mL, Route: 08/19/2011 08/19/2011 Completed SUB-Q, Drug form: SOLN, ONCE, Priority: STAT, Start date: 08/19/11 22:15:00, Stop date: 08/19/11 22:15:00 Geodon 60 mg oral capsule 60 mg, 1 cap, PO, BID, 08/19/2011 08/20/2011 Discontinued 180 cap, Substitution Allowed, CAP NS 1,000 mL 1,000 mL, Rate: 150 08/20/2011 08/23/2011 Discontinued ml/hr, Infuse over: 6.7 hr, Route: IV, Total Volume: 1,000, Start date: 08/20/11 3:06:00, Duration: 30 day, Stop date: 09/19/11 3:05:00 Novolin N 100 units/mL 18 Units, SUB-Q, BID, 3 08/23/2011 12/21/2011 Ordered subcutaneous injection vial, 3, 3, Substitution Allowed, SUSP insulin aspart 3 unit, 0.03 mL, Route: 08/20/2011 08/23/2011 Discontinued SUB-Q, Drug form: SOLN, Bedtime, PRN Blood Glucose Results, Start date: 08/20/11 3:06:00, Duration: 30 day, Stop date: 09/19/11 3:05:00 insulin aspart 2 unit, 0.02 mL, Route: 08/20/2011 08/23/2011 Discontinued SUB-Q, Drug form: SOLN, Bedtime, PRN Blood Glucose Results, Start date: 08/20/11 3:06:00, Duration: 30 day, Stop date: 09/19/11 3:05:00 insulin aspart 1 unit, 0.01 mL, Route: 08/20/2011 08/23/2011 Discontinued SUB-Q, Drug form: SOLN, Bedtime, PRN Blood Glucose Results, Start date: 08/20/11 3:06:00, Duration: 30 day, Stop date: 09/19/11 3:05:00 insulin aspart 4 unit, 0.04 mL, Route: 08/20/2011 08/23/2011 Discontinued SUB-Q, Drug form: SOLN, Bedtime, PRN Blood Glucose Results, Start date: 08/20/11 3:06:00, Duration: 30 day, Stop date: 09/19/11 3:05:00 Compazine 5 mg, 1 tab, Route: PO, 08/20/2011 08/20/2011 Discontinued Drug form: TAB, Q6H, PRN Nausea & Vomiting, Start date: 08/20/11 14:30:00, Duration: 30 day, Stop date: 09/19/11 14:29:00 potassium chloride 40 mEq, Route: IV, ONCE, 08/23/2011 08/23/2011 Deleted Start date: 08/23/11 6:29:00, Stop date: 08/23/11 6:29:00 potassium chloride 20 mEq, 100 mL, Route: 08/21/2011 08/21/2011 Completed IVPB, Drug form: INJ, ONCE, Start date: 08/21/11 9:12:00, Stop date: 08/21/11 9:12:00 potassium chloride 20 mEq, 100 mL, Route: 08/23/2011 08/23/2011 Discontinued IVPB, Drug form: INJ, Q2H, Start date: 08/23/11 8:00:00, Duration: 2 doses or times, Stop date: 08/23/11 10:00:00 trazodone 300 mg oral 300 mg, 1 tab, PO, 08/19/2011 08/20/2011 Discontinued tablet Bedtime, 15 tab, Substitution Allowed, TAB Geodon 60 mg, 3 cap, Route: PO, 08/20/2011 08/20/2011 Discontinued Drug form: CAP, BID, Start date: 08/20/11 9:00:00, Duration: 30 day, Stop date: 09/18/11 17:00:00 Effexor XR 75 mg, 1 cap, Route: PO, 08/20/2011 08/23/2011 Discontinued Drug form: ERCAP, Daily, Start date: 08/20/11 9:00:00, Duration: 30 day, Stop date: 09/18/11 9:00:00 Zofran 4 mg, 2 mL, Route: IVP, 08/20/2011 08/20/2011 Discontinued Drug form: INJ, Q8H, PRN Nausea, Start date: 08/20/11 11:15:00, Duration: 30 day, Stop date: 09/19/11 11:14:00 Vital Signs Most recent to oldest 1 2 3 [Reference Range]: Height 154.94 cm 154.94 cm (08/20/2011 03:12:00) (08/19/2011 14:28:00) Temperature Oral 97.7 DegF 98.2 DegF 98.3 DegF [96.4-99.1 DegF] (08/23/2011 12:00:00) (08/23/2011 08:24:00) (08/23/2011 05: 00:00) Systolic Blood Pressure 136 mmHg 172 mmHg 158 mmHg [90-140 mmHg] (08/23/2011 12:00:00) *HI* *HI* (08/23/2011 08:24:00) (08/23/2011 05:15:00) Diastolic Blood Pressure 82 mmHg 105 mmHg 98 mmHg [60-90 mmHg] (08/23/2011 12:00:00) *HI* *HI* (08/23/2011 08:24:00) (08/23/2011 05:15:00) Respiratory Rate [14-20 20 BRMIN 20 BRMIN 20 BRMIN BRMIN] (08/23/2011 12:00:00) (08/23/2011 08:24:00) (08/22/2011 16:00:00) Peripheral Pulse Rate 93 bpm 101 bpm 95 bpm [60-100 bpm] (08/23/2011 12:00:00) *HI* (08/23/2011 05:00:00) (08/23/2011 08:24:00) Weight 67.273 kg 67.273 kg (08/20/2011 03:12:00) (08/19/2011 14:28:00) Results BEDSIDE GLUCOSE TESTING Most recent to oldest 1 2 3 [Reference Range]: Gluc POC Lifscn [65-110 134 mg/dL 1 182 mg/dL 2 332 mg/dL 3 mg/dL] *HI* *HI* *HI* (08/23/2011 11:02:00) (08/23/2011 07:45:00) (08/22/2011 20:20:00) Comment1 Notify RN/MD Notify RN/MD Notify RN/MD *NA* *NA* *NA* (08/23/2011 11:02:00) (08/23/2011 07:45:00) (08/22/2011 20:20:00) Comment2 Verify w/Lab *NA* (08/20/2011 01:47:00) 1Interpretive Data: Upper Reportable Limit: 200 mg/dL.2Interpretive Data: Upper Reportable Limit: 200 mg/dL.3Interpretive Data: Upper Reportable Limit: 200 mg/dL.URINALYSIS Most recent to oldest [Reference Range]: 1 2 3 UA Turbidity [Clear] Slight Cloudy (08/19/2011 15:58:00) UA Color [Yellow] Yellow (08/19/2011 15:58:00) UA pH [5.0-8.0] 5.5 (08/19/2011 15:58:00) UA Spec Grav [<=1.030] 1.025 *NA* (08/19/2011 15:58:00) UA Glucose [Negative mg/dL] >=1000 mg/dL *ABN* (08/19/2011 15:58:00) UA Blood [Negative] Trace *ABN* (08/19/2011 15:58:00) UA Ketones [Negative mg/dL] 80 mg/dL *ABN* (08/19/2011 15:58:00) UA Protein [Negative] Negative (08/19/2011 15:58:00) UA Urobilinogen [0.1-1.0 EU/dL] 0.2 EU/dL (08/19/2011 15:58:00) UA Bili [Negative] Negative (08/19/2011 15:58:00) UA Leuk Est [Negative] Negative (08/19/2011 15:58:00) UA Nitrite [Negative] Negative (08/19/2011 15:58:00) UA WBC [0-5 /HPF] 3 /HPF *NA* (08/19/2011 15:58:00) UA RBC [0-2 /HPF] 3-5 /HPF *ABN* (08/19/2011 15:58:00) UA Bacteria [None Seen /HPF] Occasional /HPF (08/19/2011 15:58:00) UA Sq Epi [Few /LPF] Rare /LPF (08/19/2011 15:58:00) UA Amorph Destiny [None Seen /HPF] Occasional /HPF *ABN* (08/19/2011 15:58:00) UA Mucus [None Seen /LPF] Few /LPF (08/19/2011 15:58:00) Micro? Performed (08/19/2011 15:58:00) CHEMISTRY Most recent to oldest 1 2 3 [Reference Range]: Sodium Lvl [135-145 mEq/L] 141 mEq/L 137 mEq/L 137 mEq/L (08/23/2011 04:22:00) (08/22/2011 03:47:00) (08/21/2011 04:28:00) Potassium Lvl [3.5-5.1 3.0 mEq/L 4 3.6 mEq/L 3.7 mEq/L mEq/L] *CRIT* (08/22/2011 03:47:00) (08/21/2011 04:28:00) (08/23/2011 04:22:00) Chloride Lvl [95-109 107 mEq/L 103 mEq/L 99 mEq/L mEq/L] (08/23/2011 04:22:00) (08/22/2011 03:47:00) (08/21/2011 04:28:00) CO2 [24-32 mEq/L] 23 mEq/L 19 mEq/L 22 mEq/L *LOW* *LOW* *LOW* (08/23/2011 04:22:00) (08/22/2011 03:47:00) (08/21/2011 04:28:00) AGAP [10.0-20.0 mEq/L] 14.0 mEq/L 18.6 mEq/L 19.7 mEq/L (08/23/2011 04:22:00) (08/22/2011 03:47:00) (08/21/2011 04:28:00) Creatinine Lvl [0.5-1.4 0.6 mg/dL 0.3 mg/dL 0.6 mg/dL mg/dL] (08/23/2011 04:22:00) *LOW* (08/21/2011 04:28:00) (08/22/2011 03:47:00) BUN [7-22 mg/dL] 5 mg/dL 7 mg/dL 16 mg/dL *LOW* (08/22/2011 03:47:00) (08/21/2011 04:28:00) (08/23/2011 04:22:00) B/C Ratio [6-25] 30 *HI* (08/19/2011 15:13:00) Glucose Lvl 136 mg/dL 5 201 mg/dL 6 200 mg/dL 7 *NA* *NA* *NA* (08/23/2011 04:22:00) (08/22/2011 03:47:00) (08/21/2011 04:28:00) Total Protein [6.4-8.4 8.8 g/dL 9.0 g/dL g/dL] *HI* *HI* (08/19/2011 15:58:00) (08/19/2011 15:13:00) Albumin Lvl [3.5-5.0 g/dL] 4.4 g/dL 4.8 g/dL (08/19/2011 15:58:00) (08/19/2011 15:13:00) Globulin [2.0-4.0 g/dL] 4.4 g/dL 4.2 g/dL *HI* *HI* (08/19/2011 15:58:00) (08/19/2011 15:13:00) A/G Ratio [0.7-1.6] 1.0 1.1 (08/19/2011 15:58:00) (08/19/2011 15:13:00) Calcium Lvl [8.5-10.5 7.3 mg/dL 7.9 mg/dL 8.3 mg/dL mg/dL] *LOW* *LOW* *LOW* (08/23/2011 04:22:00) (08/22/2011 03:47:00) (08/21/2011 04:28:00) Phosphorus [2.5-4.5 mg/dL] 3.0 mg/dL 2.5 mg/dL 2.6 mg/dL (08/23/2011 04:22:00) (08/22/2011 03:47:00) (08/21/2011 04:28:00) Magnesium Lvl [1.8-2.4 1.8 mg/dL 1.6 mg/dL 1.8 mg/dL mg/dL] (08/23/2011 04:22:00) *LOW* (08/21/2011 04:28:00) (08/22/2011 03:47:00) ALT [0-65 U/L] 54 U/L 56 U/L (08/19/2011 15:58:00) (08/19/2011 15:13:00) AST [0-37 U/L] 36 U/L 23 U/L (08/19/2011 15:58:00) (08/19/2011 15:13:00) Alk Phos [39-136 U/L] 110 U/L 115 U/L (08/19/2011 15:58:00) (08/19/2011 15:13:00) Bili Total [0.2-1.3 mg/dL] 0.9 mg/dL 1.0 mg/dL (08/19/2011 15:58:00) (08/19/2011 15:13:00) Bili Direct [0.0-0.3 0.1 mg/dL mg/dL] (08/19/2011 15:58:00) Bili Indirect [0.0-1.0 0.8 mg/dL mg/dL] (08/19/2011 15:58:00) Lipase Lvl [73-393 U/L] 169 U/L (08/19/2011 15:58:00) S Preg [Negative] Negative (08/19/2011 15:58:00) pH Roberth [7.28-7.42] 7.34 (08/19/2011 15:10:00) pCO2 [place] [38-52 mmHg] 32 mmHg *LOW* (08/19/2011 15:10:00) pO2 [place] [20-49 mmHg] 42 mmHg (08/19/2011 15:10:00) HCO3 [place] [22.0-26.0 17.3 mMol/L mMol/L] *LOW* (08/19/2011 15:10:00) BE Rober[place] [-2-2 mMol/L] -7 mMol/L *LOW* (08/19/2011 15:10:00) O2 Sat Roberth [40.0-70.0 %] 74.0 % *HI* (08/19/2011 15:10:00) Temp Roberth 37.0 DegC *NA* (08/19/2011 15:10:00) 4Result Comment: Critical Result(s) called to annie genao at 08/23/2011 5:18 by tac. Read back OK.5Interpretive Data: Reference Ranges : 0 - 7 days : 41 - 90 mg/dL7 days - 150 yrs : 70 - 99 mg/dL (fasting), based on the clinical recommendations of the [employer].6Interpretive Data: Reference Ranges : 0 - 7 days : 41 - 90 mg/dL7 days - 150 yrs : 70 - 99 mg/ dL (fasting), based on the clinical recommendations of the [place].7Interpretive Data: Reference Ranges : 0 - 7 days : 41 - 90 mg/ dL7 days - 150 yrs : 70 - 99 mg/dL (fasting), based on the clinical recommendations of the [place].HEMATOLOGY Most recent to oldest 1 2 3 [Reference Range]: WBC [3.7-10.4 K/CMM] 6.8 K/CMM 7.7 K/CMM 7.3 K/CMM (08/23/2011 04:22:00) (08/22/2011 03:47:00) (08/21/2011 04:28:00) RBC [4.20-5.40 M/CMM] 4.44 M/CMM 4.80 M/CMM 4.54 M/CMM (08/23/2011 04:22:00) (08/22/2011 03:47:00) (08/21/2011 04:28:00) Hgb [12.0-16.0 g/dL] 13.1 g/dL 14.0 g/dL 13.2 g/dL 8 (08/23/2011 04:22:00) (08/22/2011 03:47:00) (08/21/2011 04:28:00) Hct [36.0-48.0 %] 37.1 % 39.7 % 37.6 % (08/23/2011 04:22:00) (08/22/2011 03:47:00) (08/21/2011 04:28:00) MCV [81.0-99.0 fL] 83.5 fL 82.8 fL 82.9 fL (08/23/2011 04:22:00) (08/22/2011 03:47:00) (08/21/2011 04:28:00) MCH [27.0-31.0 pg] 29.6 pg 29.1 pg 29.0 pg (08/23/2011 04:22:00) (08/22/2011 03:47:00) (08/21/2011 04:28:00) MCHC [32.0-36.0 g/dL] 35.4 g/dL 35.2 g/dL 35.0 g/dL (08/23/2011 04:22:00) (08/22/2011 03:47:00) (08/21/2011 04:28:00) RDW [11.5-14.5 %] 14.1 % 13.9 % 14.6 % (08/23/2011 04:22:00) (08/22/2011 03:47:00) *HI* (08/21/2011 04:28:00) Platelet [133-450 K/CMM] 161 K/CMM 160 K/CMM 172 K/CMM (08/23/2011 04:22:00) (08/22/2011 03:47:00) (08/21/2011 04:28:00) MPV [7.4-10.4 fL] 11.0 fL 11.9 fL 12.0 fL *HI* *HI* *HI* (08/23/2011 04:22:00) (08/22/2011 03:47:00) (08/21/2011 04:28:00) Segs [45.0-75.0 %] 69.6 % 76.9 % 73.4 % (08/23/2011 04:22:00) *HI* (08/21/2011 04:28:00) (08/22/2011 03:47:00) Bands [0.0-11.0 %] 0.0 % (08/19/2011 15:13:00) Lymphocytes [20.0-40.0 %] 21.5 % 15.9 % 17.3 % (08/23/2011 04:22:00) *LOW* *LOW* (08/22/2011 03:47:00) (08/21/2011 04:28:00) Atypical Lymphs [<=0.0 %] 0.0 % (08/19/2011 15:13:00) Monocytes [2.0-12.0 %] 7.6 % 6.3 % 8.5 % (08/23/2011 04:22:00) (08/22/2011 03:47:00) (08/21/2011 04:28:00) Eosinophils [0.0-4.0 %] 1.0 % 0.4 % 0.3 % (08/23/2011 04:22:00) (08/22/2011 03:47:00) (08/21/2011 04:28:00) Basophils [0.0-1.0 %] 0.3 % 0.5 % 0.5 % (08/23/2011 04:22:00) (08/22/2011 03:47:00) (08/21/2011 04:28:00) Segs-Bands # [1.5-8.1 4.8 K/CMM 5.9 K/CMM 5.3 K/CMM K/CMM] (08/23/2011 04:22:00) (08/22/2011 03:47:00) (08/21/2011 04:28:00) Lymphocytes # [1.0-5.5 1.5 K/CMM 1.2 K/CMM 1.3 K/CMM K/CMM] (08/23/2011 04:22:00) (08/22/2011 03:47:00) (08/21/2011 04:28:00) Monocytes # [0.0-0.8 K/CMM] 0.5 K/CMM 0.5 K/CMM 0.6 K/CMM (08/23/2011 04:22:00) (08/22/2011 03:47:00) (08/21/2011 04:28:00) Eosinophils # [0.0-0.5 0.1 K/CMM 0.0 K/CMM 0.0 K/CMM K/CMM] (08/23/2011 04:22:00) (08/22/2011 03:47:00) (08/21/2011 04:28:00) Basophils # [0.0-0.2 K/CMM] 0.0 K/CMM 0.0 K/CMM 0.0 K/CMM (08/23/2011 04:22:00) (08/22/2011 03:47:00) (08/21/2011 04:28:00) RBC Morph Normal (08/19/2011 15:13:00) Polychrom [None Seen] Slight (08/21/2011 04:28:00) Hypochrom [None Seen] Slight (08/21/2011 04:28:00) Elliptocyte [None Seen] Slight *ABN* (08/21/2011 04:28:00) Large Plt [None Seen] Slight *ABN* (08/19/2011 15:13:00) 8Result Comment: hp rechecked, no clot seenIMMUNOLOGY Most recent to oldest [Reference Range]: 1 2 3 CDC-HIV 1/2 Ab [Negative] Negative *NA* (08/19/2011 14:34:00)
--- OUTSIDE RECORDS SUMMARY | 2018-06-18 11:43 | XMS REPORT | CCD ---
:1980 Author Organization 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 Medications Medication Instructions Start Date End Date Status Lovenox 40 mg, 0.4 mL, Route: 09/02/2011 09/09/2011 Discontinued SUB-Q, Drug form: INJ, Daily, Start date: 09/02/11 9:00:00, Duration: 30 day, Stop date: 10/01/11 9:00:00 Geodon 120 mg, 3 cap, Route: PO, 09/02/2011 09/09/2011 Discontinued Drug form: CAP, Bedtime, Start date: 09/02/11 21:00:00, Duration: 30 day, Stop date: 10/01/11 21:00:00 Lactated Ringers IV 1,000 1,000 mL, Rate: 125 09/01/2011 09/05/2011 Discontinued mL ml/hr, Infuse over: 8 hr, Route: IV, Dosing Weight 68.2 kg, Total Volume: 1,000, Start date: 09/01/11 19:55:00, Duration: 30 day, Stop date: 10/01/11 19:54:00 clindamycin (SCIP) 600 mg, 4 mL, Route: 09/01/2011 09/02/2011 Discontinued IVPB, [id number], Start date: 09/01/11 23:00:00, Duration: 3 doses or times, Stop date: 09/02/11 15:00:00 Lactated Ringers (Bolus) 2,000 mL, Rate: 100 09/01/2011 09/01/2011 Discontinued IV 2,000 mL ml/hr, Infuse over: 20 hr, Route: IV, Dosing Weight 68.18 kg, Total Volume: 2,000, Start date: 09/01/11 10:42:00, Duration: 1 doses or times, Stop date: 09/02/11 6:41:00 clindamycin 300 mg, 2 cap, Route: PO, 09/09/2011 09/09/2011 Canceled Drug form: CAP, Q8H, Start date: 09/09/11 16:00:00, Duration: 30 day, Stop date: 10/09/11 8:00:00 Insulin regular 8 unit, 0.08 mL, Route: 09/01/2011 09/01/2011 Completed SUB-Q, Drug form: SOLN, ONCE, Priority: STAT, Start date: 09/01/11 10:28:00, Stop date: 09/01/11 10:28:00 vancomycin 1 gm, Route: IVPB, Drug 09/01/2011 09/01/2011 Deleted form: INJ, [id number], Start date: 09/01/11 20:00:00, Duration: 30 day, Stop date: 10/01/11 8:00:00 clindamycin 600 mg, Route: IVPB, 09/07/2011 09/07/2011 Completed ONCE, Start date: 09/07/11 8:31:00, Stop date: 09/07/11 8:31:00 morphine Sulfate 4 mg, 1 mL, Route: IVP, 09/01/2011 09/01/2011 Completed Drug form: INJ, ONCE, Start date: 09/01/11 12:13:00, Stop date: 09/01/11 12:13:00 [place] 10/325 oral tablet 1 tab, Route: PO, Drug 09/09/2011 09/09/2011 Discontinued Form: TAB, Q4H, Start date: 09/09/11 4:00:00, Duration: 30 day, Stop date: 10/09/11 0:00:00 labetalol 5 mg, Route: IVP, Q5Min, 09/01/2011 09/01/2011 Discontinued PRN Elevated BP, Start date: 09/01/11 20:07:00, Duration: 5 doses or times, Stop date: Limited # of times hydrALAZINE 5 mg, Route: IVP, Q5Min, 09/01/2011 09/01/2011 Discontinued PRN Elevated BP, Start date: 09/01/11 20:07:00, Duration: 4 doses or times, Stop date: Limited # of times hydromorphone 0.5 mg, Route: IVP, 09/01/2011 09/01/2011 Completed Q5Min, PRN Pain Score 4-6, Start date: 09/01/11 20:07:00, Duration: 5 doses or times, Stop date: Limited # of times naloxone 0.04 mg, Route: IVP, 09/01/2011 09/01/2011 Discontinued Q2MIN, PRN Narcotic Reversal, Start date: 09/01/11 20:07:00, Duration: 8 doses or times, Stop date: Limited # of times flumazenil 0.2 mg, Route: IVP, PRN, 09/01/2011 09/01/2011 Discontinued PRN Benzodiazepine Reversal, Initial dose, Start date: 09/01/11 20:07:00, Duration: 30 day, Stop date: 10/01/11 20:06:00 ondansetron 4 mg, Route: IVP, ONCE, 09/01/2011 09/01/2011 Discontinued PRN Nausea & Vomiting, Start date: 09/01/11 20:07:00 Insulin regular 8 unit, 0.08 mL, Route: 09/01/2011 09/01/2011 Completed IVP, Drug form: SOLN, ONCE, Priority: STAT, Start date: 09/01/11 3:30:00, Stop date: 09/01/11 3:30:00 ondansetron 4 mg, 2 mL, Route: IVP, 09/04/2011 09/04/2011 Discontinued Drug form: INJ, ONCE, PRN Nausea & Vomiting, Start date: 09/04/11 8:37:00 naloxone 0.04 mg, 0.1 mL, Route: 09/04/2011 09/04/2011 Discontinued IVP, Drug form: INJ, Q2MIN, PRN Narcotic Reversal, Start date: 09/04/11 8:37:00, Duration: 8 doses or times, Stop date: Limited # of times meperidine 12.5 mg, 0.5 mL, Route: 09/04/2011 09/04/2011 Discontinued IVP, Drug form: INJ, Q30Min, PRN Other -See Comment, For shivering, Start date: 09/04/11 8:37:00, Duration: 2 doses or times, Stop date: Limited # of times flumazenil 0.2 mg, 2 mL, Route: IVP, 09/04/2011 09/04/2011 Discontinued Drug form: INJ, PRN, PRN Benzodiazepine Reversal, Initial dose, Start date: 09/04/11 8:37:00, Duration: 1 day, Stop date: 09/05/11 8:36:00 hydromorphone 0.5 mg, 0.25 mL, Route: 09/04/2011 09/04/2011 Discontinued IVP, Drug form: INJ, Q5Min, PRN Pain Score 4-6, Start date: 09/04/11 8:37:00, Duration: 5 doses or times, Stop date: Limited # of times [place] 5/325 oral tablet 1 tab, Route: PO, Drug 09/03/2011 09/04/2011 Discontinued Form: TAB, Q4H, Start date: 09/03/11 0:00:00, Duration: 30 day, Stop date: 10/02/11 20:00:00 Zofran 4 mg, 2 mL, Route: IV, 09/04/2011 09/09/2011 Discontinued Drug form: INJ, Q4H, PRN as needed for nausea/vomiting, Priority: NOW, Start date: 09/04/11 18:11:00, Duration: 30 day, Stop date: 10/04/11 18:10:00 Lactated Ringers IV 1,000 1,000 mL, Rate: 125 09/07/2011 09/07/2011 Discontinued mL ml/hr, Infuse over: 8 hr, Route: IV, Dosing Weight 68.182 kg, Total Volume: 1,000, Start date: 09/07/11 9:06:00, Duration: 30 day, Stop date: 10/07/11 9:05:00 vancomycin 1 gm, Route: IVPB, Drug 09/01/2011 09/02/2011 Discontinued form: INJ, [id number], Start date: 09/01/11 19:00:00, Duration: 30 day, Stop date: 10/01/11 7:00:00 Sodium Chloride 0.9% 1,000 mL, Rate: 1,000 09/01/2011 09/01/2011 Completed (Bolus) IV 1000 mL ml/hr, Infuse over: 1 hr, Route: IV, Dosing Weight 68.182 kg, Total Volume: 1,000, Bolus Dose, Priority: STAT, Start date: 09/01/11 3:42:00, Duration: 1 doses or times, Stop date: 09/01/11 4:41:00 clindamycin 150 mg oral 300 mg, 2 cap, PO, Q8H, 09/09/2011 Ordered capsule 30 cap, Substitution Allowed, CAP [place] 10/325 oral tablet 1 tab, PO, Q4H, PRN, 30 09/09/2011 Ordered tab, Pain, Substitution Allowed, Maintenance, TAB insulin aspart 6 unit, 0.06 mL, Route: 09/01/2011 09/09/2011 Discontinued SUB-Q, Drug form: SOLN, TID-Before Meals, PRN Blood Glucose Results, Start date: 09/01/11 18:23:00, Duration: 30 day, Stop date: 10/01/11 18:22:00 insulin aspart 9 unit, 0.09 mL, Route: 09/01/2011 09/09/2011 Discontinued SUB-Q, Drug form: SOLN, TID-Before Meals, PRN Blood Glucose Results, Start date: 09/01/11 18:23:00, Duration: 30 day, Stop date: 10/01/11 18:22:00 insulin aspart 3 unit, 0.03 mL, Route: 09/01/2011 09/09/2011 Discontinued SUB-Q, Drug form: SOLN, TID-Before Meals, PRN Blood Glucose Results, Start date: 09/01/11 18:23:00, Duration: 30 day, Stop date: 10/01/11 18:22:00 insulin aspart 12 unit, 0.12 mL, Route: 09/01/2011 09/09/2011 Discontinued SUB-Q, Drug form: SOLN, TID-Before Meals, PRN Blood Glucose Results, Start date: 09/01/11 18:23:00, Duration: 30 day, Stop date: 10/01/11 18:22:00 insulin aspart 15 unit, 0.15 mL, Route: 09/01/2011 09/09/2011 Discontinued SUB-Q, Drug form: SOLN, TID-Before Meals, PRN Blood Glucose Results, Start date: 09/01/11 18:23:00, Duration: 30 day, Stop date: 10/01/11 18:22:00 insulin isophane-NPH 15 unit, 0.15 mL, Route: 09/01/2011 09/09/2011 Discontinued SUB-Q, Drug form: INJ, Q12H, Start date: 09/01/11 21:00:00, Stop date: 10/01/11 9:00:00 glucagon 1 mg, Route: IM, Drug 09/01/2011 09/09/2011 Discontinued form: PDR/INJ, PRN, PRN Blood Glucose Results, Start date: 09/01/11 18:23:00, Duration: 30 day, Stop date: 10/01/11 18:22:00 Dextrose 50% Syringe 25 gm, 50 mL, Route: IVP, 09/01/2011 09/09/2011 Discontinued Drug Form: INJ, PRN, PRN Blood Glucose Results, Start date: 09/01/11 18:23:00, Duration: 30 day, Stop date: 10/01/11 18:22:00 Dextrose 50% Syringe 12.5 gm, 25 mL, Route: 09/01/2011 09/09/2011 Discontinued IVP, Drug Form: INJ, PRN, PRN Blood Glucose Results, Start date: 09/01/11 18:23:00, Duration: 30 day, Stop date: 10/01/11 18:22:00 clindamycin 600 mg, 4 mL, Route: 09/03/2011 09/09/2011 Discontinued IVPB, [id number], Start date: 09/03/11 11:00:00, Duration: 30 day, Stop date: 10/03/11 8:00:00 Dulcolax Laxative 10 mg, 2 tab, Route: PO, 09/04/2011 09/09/2011 Discontinued Drug form: ECTAB, Daily, PRN Constipation, Priority: NOW, Start date: 09/04/11 23:00:00, Duration: 30 day, Stop date: 10/04/11 22:59:00 vancomycin 1 gm, Route: IVPB, Drug 09/02/2011 09/03/2011 Discontinued form: INJ, [id number], Start date: 09/02/11 9:00:00, Duration: 30 day, Stop date: 10/01/11 21:00:00 potassium chloride 40 mEq, 2 tab, Route: PO, 09/03/2011 09/03/2011 Completed Drug form: ERTAB, ONCE, Start date: 09/03/11 8:39:00, Stop date: 09/03/11 8:39:00 normal saline 0.9% IV 1,000 mL, Rate: 100 09/07/2011 09/07/2011 Discontinued 1,000 mL ml/hr, Infuse over: 10 hr, Route: IV, Dosing Weight 68.18 kg, Total Volume: 1,000, Start date: 09/07/11 0:00:00, Duration: 30 day, Stop date: 10/06/11 23:59:00 Sodium Chloride 0.9% 1,000 mL, Rate: 1,000 09/01/2011 09/01/2011 Discontinued (Bolus) IV 1,000 mL ml/hr, Infuse over: 1 hr, Route: IV, Dosing Weight 68.18 kg, Total Volume: 1,000, Bolus Dose, Priority: STAT, Start date: 09/01/11 9:53:00, Duration: 1 doses or times, Stop date: 09/01/11 10:52:00 Sodium Chloride 0.9% 1,000 mL, Rate: 1,000 09/01/2011 09/01/2011 Completed (Bolus) IV 1000 mL ml/hr, Infuse over: 1 hr, Route: IV, Dosing Weight 68.182 kg, Total Volume: 1,000, Bolus Dose, Priority: STAT, Start date: 09/01/11 5:41:00, Duration: 1 doses or times, Stop date: 09/01/11 6:40:00 flumazenil 0.2 mg, 2 mL, Route: IVP, 09/07/2011 09/07/2011 Discontinued Drug form: INJ, PRN, PRN Benzodiazepine Reversal, Initial dose, Start date: 09/07/11 9:19:00, Duration: 1 day, Stop date: 09/08/11 9:18:00 naloxone 0.04 mg, 0.1 mL, Route: 09/07/2011 09/07/2011 Discontinued IVP, Drug form: INJ, Q2MIN, PRN Narcotic Reversal, Start date: 09/07/11 9:19:00, Duration: 8 doses or times, Stop date: Limited # of times ondansetron 4 mg, 2 mL, Route: IVP, 09/07/2011 09/07/2011 Discontinued Drug form: INJ, ONCE, PRN Nausea & Vomiting, Start date: 09/07/11 9:19:00 hydromorphone 0.5 mg, 0.25 mL, Route: 09/07/2011 09/07/2011 Discontinued IVP, Drug form: INJ, Q5Min, PRN Pain Score 4-6, Start date: 09/07/11 9:19:00, Duration: 5 doses or times, Stop date: Limited # of times acetaminophen-hydrocodone 15 mL, Route: PO, Drug 09/07/2011 09/07/2011 Discontinued 325 mg-10 mg/15 mL oral Form: SOLN, Q4H, PRN Pain solution Score 4-6, Start date: 09/07/11 9:19:00, Duration: 1 day, Stop date: 09/08/11 8:00:00 normal saline 0.9% IV 1,000 mL, Rate: 100 09/06/2011 09/06/2011 Discontinued 1000 mL ml/hr, Infuse over: 10 hr, Route: IV, kg, Total Volume: 1,000, Start date: 09/06/11 8:25:00, Duration: 30 day, Stop date: 10/06/11 8:24:00 labetalol 5 mg, Route: IV, ONCE, 09/04/2011 09/04/2011 Completed Start date: 09/04/11 9:40:00, Stop date: 09/04/11 9:40:00 enalapril 5 mg, 1 tab, Route: PO, 09/07/2011 09/09/2011 Discontinued Drug form: TAB, Daily, Start date: 09/07/11 10:30:00, Duration: 30 day, Stop date: 10/07/11 9:00:00 clindamycin 600 mg, 4 mL, Route: 09/01/2011 09/01/2011 Completed IVPB, Drug form: INJ, ONCE, Priority: STAT, Start date: 09/01/11 8:20:00, Stop date: 09/01/11 8:20:00 potassium chloride 40 mEq, 2 tab, Route: PO, 09/05/2011 09/05/2011 Completed Drug form: ERTAB, ONCE, Start date: 09/05/11 9:11:00, Stop date: 09/05/11 9:11:00 clindamycin (SCIP) 600 mg, 4 mL, Route: 09/02/2011 09/02/2011 Discontinued IVPB, [id number], Start date: 09/02/11 5:00:00, Duration: 3 doses or times, Stop date: 09/02/11 21:00:00 ondansetron 4 mg, Route: IVP, Drug 09/01/2011 09/01/2011 Completed form: INJ, ONCE, Priority: STAT, Start date: 09/01/11 4:06:00, Stop date: 09/01/11 4:06:00 morphine Sulfate 4 mg, Route: IVP, ONCE, 09/01/2011 09/01/2011 Completed Priority: STAT, Start date: 09/01/11 4:06:00, Stop date: 09/01/11 4:06:00 morphine Sulfate 2 mg, 1 mL, Route: IVP, 09/01/2011 09/05/2011 Discontinued Drug form: INJ, Q4H, PRN Severe Pain, Start date: 09/01/11 16:14:00, Stop date: 10/01/11 16:13:00 Lactated Ringers IV 1,000 1,000 mL, Rate: 100 09/01/2011 09/01/2011 Discontinued mL ml/hr, Infuse over: 10 hr, Route: IV, Dosing Weight 68.182 kg, Total Volume: 1,000, Start date: 09/01/11 14:03:00, Duration: 30 day, Stop date: 10/01/11 14:02:00 senna 8.6 mg oral tablet 8.6 mg, 1 tab, Route: PO, 09/05/2011 09/09/2011 Discontinued Drug Form: TAB, BID, PRN as needed for constipation, Start date: 09/05/11 10:00:00, Duration: 30 day, Stop date: 10/05/11 9:00:00 Colace 100 mg oral 100 mg, 1 cap, Route: PO, 09/05/2011 09/07/2011 Discontinued capsule Drug form: CAP, BID, PRN as needed for constipation, Start date: 09/05/11 10:00:00, Duration: 30 day, Stop date: 10/05/11 9:00:00 magnesium sulfate 4 gm, 50 mL, Route: IVPB, 09/02/2011 09/02/2011 Completed Drug form: INJ, ONCE, Start date: 09/02/11 11:15:00, Stop date: 09/02/11 11:15:00 [place] 10/325 oral tablet 1 tab, Route: PO, Drug 09/04/2011 09/09/2011 Discontinued Form: TAB, Q4H, PRN Pain, Start date: 09/04/11 9:49:00, Stop date: 10/04/11 9:48:00 [place] 10/325 oral tablet 1 tab, Route: PO, Drug 09/04/2011 09/05/2011 Discontinued Form: TAB, Q4H, Start date: 09/04/11 12:00:00, Duration: 30 day, Stop date: 10/04/11 8:00:00 ondansetron 4 mg, 2 mL, Route: IVP, 09/04/2011 09/04/2011 Completed Drug form: INJ, ONCE, PRN Nausea & Vomiting, Start date: 09/04/11 9:50:00, Duration: 1 doses or times, Stop date: Limited # of times ropivacaine 0.2% in NS - Dosincc/hr, Route: 09/04/2011 09/04/2011 Discontinued site 1 400 mL NERVE BLOCK, Start date: 09/04/11 9:50:00 400 mL, Duration: 30 day, Stop date: 10/04/11 9:49:00 naloxone 0.04 mg, 0.1 mL, Route: 09/04/2011 09/09/2011 Discontinued IVP, Drug form: INJ, Q2MIN, PRN Narcotic Reversal, Start date: 09/04/11 9:50:00, Duration: 30 day, Stop date: 10/04/11 9:49:00 Sodium Chloride 0.9% IV 320 mL, Rate: 10 ml/hr, 09/04/2011 09/09/2011 Discontinued 320 mL + ropivacaine 1% Infuse over: 40 hr, 800 mg + Q-Pump 1 ea Route: NERVE BLOCK, Dosing Weight 68.182 kg, Total Volume: 400, Start date: 09/04/11 10:01:00, Duration: 7 day, Stop date: 09/11/11 10:00:00 Colace 100 mg oral 100 mg, 1 cap, PO, BID, 09/09/2011 Ordered capsule 60 cap, Substitution Allowed, CAP Colace 100 mg oral 100 mg, 1 cap, Route: PO, 09/07/2011 09/09/2011 Discontinued capsule Drug form: CAP, BID, Start date: 09/07/11 17:00:00, Duration: 30 day, Stop date: 10/07/11 9:00:00 Effexor XR 75 mg, 1 cap, Route: PO, 09/02/2011 09/09/2011 Discontinued Drug form: ERCAP, Daily, Give qAM after today's dose., Start date: 09/02/11 12:00:00, Duration: 30 day, Stop date: 10/02/11 9:00:00 morphine Sulfate 4 mg, 1 mL, Route: IVP, 09/01/2011 09/01/2011 Completed Drug form: INJ, ONCE, Start date: 09/01/11 8:28:00, Stop date: 09/01/11 8:28:00 trazodone 100 mg oral 200 mg, 4 tab, Route: PO, 09/02/2011 09/09/2011 Discontinued tablet Drug form: TAB, Bedtime, Start date: 09/02/11 21:00:00, Duration: 30 day, Stop date: 10/01/11 21:00:00 [place] 5/325 oral tablet 1 tab, Route: PO, Drug 09/02/2011 09/04/2011 Discontinued Form: TAB, Q4H, PRN Pain, Start date: 09/02/11 11:25:00, Duration: 30 day, Stop date: 10/02/11 11:24:00 Sodium Chloride 0.9% 1,000 mL, Rate: 1,000 09/01/2011 09/01/2011 Completed (Bolus) IV 1,000 mL ml/hr, Infuse over: 1 hr, Route: IV, Dosing Weight 68.182 kg, Total Volume: 1,000, Bolus Dose, Priority: STAT, Start date: 09/01/11 2:29:00, Duration: 1 doses or times, Stop date: 09/01/11 3:28:00 Vital Signs Most recent to oldest 1 2 3 [Reference Range]: Height 154.94 cm 154.94 cm (09/01/2011 14:59:00) (09/01/2011 02:01:00) Temperature Oral 97.5 DegF 98.6 DegF 98.7 DegF [96.4-99.1 DegF] (09/09/2011 08:02:00) (09/09/2011 03:00:00) (09/08/2011 19: 55:00) Systolic Blood Pressure 115 mmHg 118 mmHg 123 mmHg [90-140 mmHg] (09/09/2011 08:02:00) (09/09/2011 03:00:00) (09/08/2011 23:55: 00) Diastolic Blood Pressure 69 mmHg 68 mmHg 71 mmHg [60-90 mmHg] (09/09/2011 08:02:00) (09/09/2011 03:00:00) (09/08/2011 23:55: 00) Respiratory Rate [14-20 18 BRMIN 20 BRMIN 20 BRMIN BRMIN] (09/09/2011 08:02:00) (09/09/2011 03:00:00) (09/08/2011 23:55:00) Peripheral Pulse Rate 75 bpm 66 bpm 67 bpm [60-100 bpm] (09/09/2011 08:31:00) (09/09/2011 03:00:00) (09/08/2011 23:55: 00) Weight 68.182 kg 68.182 kg (09/01/2011 14:59:00) (09/01/2011 02:01:00) Results BEDSIDE GLUCOSE TESTING Most recent to oldest 1 2 3 [Reference Range]: Gluc POC [place] [70-99 215 mg/dL 1 mg/dL] *HI* (09/09/2011 12:34:00) Gluc POC [place] [65-110 91 mg/dL 2 148 mg/dL 3 mg/dL] (09/09/2011 06:43:00) *HI* (09/08/2011 21:45:00) Comment1 Notify RN/MD Notify RN/MD Notify RN/MD *NA* *NA* *NA* (09/09/2011 12:34:00) (09/09/2011 06:43:00) (09/08/2011 21:45:00) 1Interpretive Data: Upper Reportable Limit: 200 mg/dL.2Interpretive Data: Upper Reportable Limit: 200 mg/dL.3Interpretive Data: Upper Reportable Limit: 200 mg/dL.URINALYSIS Most recent to oldest [Reference Range]: 1 2 3 UA Turbidity [Clear] Clear (09/01/2011 07:20:00) UA Color [Yellow] Yellow *NA* (09/01/2011 07:20:00) UA pH [5.0-8.0] 6.0 (09/01/2011 07:20:00) UA Spec Grav [<=1.030] 1.035 *HI* (09/01/2011 07:20:00) UA Glucose [Negative mg/dL] >=1000 mg/dL *ABN* (09/01/2011 07:20:00) UA Blood [Negative] Negative (09/01/2011 07:20:00) UA Ketones [Negative mg/dL] >=80 mg/dL *ABN* (09/01/2011 07:20:00) UA Protein [Negative] Negative (09/01/2011 07:20:00) UA Urobilinogen [0.1-1.0 EU/dL] 0.2 EU/dL (09/01/2011 07:20:00) UA Bili [Negative] Negative (09/01/2011 07:20:00) UA Leuk Est [Negative] Negative (09/01/2011 07:20:00) UA Nitrite [Negative] Negative (09/01/2011 07:20:00) UA Sq Epi [Few /LPF] Occasional /LPF (09/01/2011 07:20:00) CHEMISTRY Most recent to oldest 1 2 3 [Reference Range]: Sodium Lvl [135-145 mEq/L] 143 mEq/L 141 mEq/L 143 mEq/L (09/08/2011 03:47:00) (09/07/2011 05:54:00) (09/07/2011 05:02:00) Potassium Lvl [3.5-5.1 3.8 mEq/L 4.1 mEq/L 4.1 mEq/L mEq/L] (09/08/2011 03:47:00) (09/07/2011 05:54:00) (09/07/2011 05:02:00) Chloride Lvl [95-109 103 mEq/L 104 mEq/L 105 mEq/L mEq/L] (09/08/2011 03:47:00) (09/07/2011 05:54:00) (09/07/2011 05:02:00) CO2 [24-32 mEq/L] 29 mEq/L 27 mEq/L 29 mEq/L (09/08/2011 03:47:00) (09/07/2011 05:54:00) (09/07/2011 05:02:00) AGAP [10.0-20.0 mEq/L] 14.8 mEq/L 14.1 mEq/L 13.1 mEq/L (09/08/2011 03:47:00) (09/07/2011 05:54:00) (09/07/2011 05:02:00) Creatinine Lvl [0.5-1.4 0.6 mg/dL 0.5 mg/dL 0.6 mg/dL mg/dL] (09/08/2011 03:47:00) (09/07/2011 05:54:00) (09/07/2011 05:02:00) BUN [7-22 mg/dL] 10 mg/dL 10 mg/dL 6 mg/dL (09/08/2011 03:47:00) (09/07/2011 05:54:00) *LOW* (09/07/2011 05:02:00) Glucose Lvl 105 mg/dL 4 83 mg/dL 5 118 mg/dL 6 *NA* *NA* *NA* (09/08/2011 03:47:00) (09/07/2011 05:54:00) (09/07/2011 05:02:00) Calcium Lvl [8.5-10.5 8.5 mg/dL 8.4 mg/dL 8.7 mg/dL mg/dL] (09/08/2011 03:47:00) *LOW* (09/07/2011 05:02:00) (09/07/2011 05:54:00) Magnesium Lvl [1.8-2.4 2.1 mg/dL 1.5 mg/dL mg/dL] (09/03/2011 04:24:00) *LOW* (09/01/2011 02:47:00) Lactic Acid Lvl [0.5-2.2 1.0 mMol/L 2.8 mMol/L mMol/L] (09/01/2011 08:09:00) *HI* (09/01/2011 03:00:00) U Preg [Negative] Negative (09/01/2011 07:20:00) pH [place] [7.28-7.42] 7.37 (09/01/2011 12:10:00) pCO2 [place] [38-52 mmHg] 47 mmHg (09/01/2011 12:10:00) pO2 [place] [20-49 mmHg] 19 mmHg *LOW* (09/01/2011 12:10:00) HCO3 [place] [22.0-26.0 27.2 mMol/L mMol/L] *HI* (09/01/2011 12:10:00) BE [place] [-2-2 mMol/L] 1 mMol/L (09/01/2011 12:10:00) O2 Sat [place] [40.0-70.0 %] 27.0 % *LOW* (09/01/2011 12:10:00) Temp [place] 37.0 DegC *NA* (09/01/2011 12:10:00) 4Interpretive Data: Reference Ranges : 0 - 7 days : 41 - 90 mg/dL7 days - 150 yrs : 70 - 99 mg/dL (fasting), based on the clinical recommendations of the [employer].5Interpretive Data: Reference Ranges : 0 - 7 days : 41 - 90 mg/dL7 days - 150 yrs : 70 - 99 mg/dL (fasting), based on the clinical recommendations of the [employer].6Interpretive Data : Reference Ranges : 0 - 7 days : 41 - 90 mg/dL7 days - 150 yrs : 70 - 99 mg/dL (fasting), based on the clinical recommendations of the [place] [employer].HEMATOLOGY Most recent to oldest 1 2 3 [Reference Range]: WBC [3.7-10.4 K/CMM] 6.3 K/CMM 4.7 K/CMM 5.0 K/CMM (09/08/2011 03:47:00) (09/07/2011 05:54:00) (09/07/2011 05:02:00) RBC [4.20-5.40 M/CMM] 3.15 M/CMM 3.84 M/CMM 3.34 M/CMM *LOW* *LOW* *LOW* (09/08/2011 03:47:00) (09/07/2011 05:54:00) (09/07/2011 05:02:00) Hgb [12.0-16.0 g/dL] 9.1 g/dL 12.1 g/dL 9.7 g/dL *LOW* (09/07/2011 05:54:00) *LOW* (09/08/2011 03:47:00) (09/07/2011 05:02:00) Hct [36.0-48.0 %] 25.9 % 35.5 % 27.5 % *LOW* *LOW* *LOW* (09/08/2011 03:47:00) (09/07/2011 05:54:00) (09/07/2011 05:02:00) MCV [81.0-99.0 fL] 82.1 fL 92.6 fL 82.1 fL (09/08/2011 03:47:00) (09/07/2011 05:54:00) (09/07/2011 05:02:00) MCH [27.0-31.0 pg] 28.9 pg 31.4 pg 28.9 pg (09/08/2011 03:47:00) *HI* (09/07/2011 05:02:00) (09/07/2011 05:54:00) MCHC [32.0-36.0 g/dL] 35.2 g/dL 33.9 g/dL 35.2 g/dL (09/08/2011 03:47:00) (09/07/2011 05:54:00) (09/07/2011 05:02:00) RDW [11.5-14.5 %] 14.5 % 12.7 % 14.3 % (09/08/2011 03:47:00) (09/07/2011 05:54:00) (09/07/2011 05:02:00) Platelet [133-450 K/CMM] 233 K/CMM 287 K/CMM 240 K/CMM (09/08/2011 03:47:00) (09/07/2011 05:54:00) (09/07/2011 05:02:00) MPV [7.4-10.4 fL] 9.0 fL 7.2 fL 9.2 fL (09/08/2011 03:47:00) *LOW* (09/07/2011 05:02:00) (09/07/2011 05:54:00) Segs [45.0-75.0 %] 61.1 % 45.4 % 55.8 % (09/08/2011 03:47:00) (09/07/2011 05:54:00) (09/07/2011 05:02:00) Lymphocytes [20.0-40.0 %] 31.5 % 42.8 % 34.7 % (09/08/2011 03:47:00) *HI* (09/07/2011 05:02:00) (09/07/2011 05:54:00) Monocytes [2.0-12.0 %] 6.2 % 9.0 % 6.9 % (09/08/2011 03:47:00) (09/07/2011 05:54:00) (09/07/2011 05:02:00) Eosinophils [0.0-4.0 %] 0.7 % 2.4 % 2.0 % (09/08/2011 03:47:00) (09/07/2011 05:54:00) (09/07/2011 05:02:00) Basophils [0.0-1.0 %] 0.5 % 0.4 % 0.6 % (09/08/2011 03:47:00) (09/07/2011 05:54:00) (09/07/2011 05:02:00) Segs-Bands # [1.5-8.1 3.8 K/CMM 2.1 K/CMM 2.8 K/CMM K/CMM] (09/08/2011 03:47:00) (09/07/2011 05:54:00) (09/07/2011 05:02:00) Lymphocytes # [1.0-5.5 2.0 K/CMM 2.0 K/CMM 1.7 K/CMM K/CMM] (09/08/2011 03:47:00) (09/07/2011 05:54:00) (09/07/2011 05:02:00) Monocytes # [0.0-0.8 0.4 K/CMM 0.4 K/CMM 0.3 K/CMM K/CMM] (09/08/2011 03:47:00) (09/07/2011 05:54:00) (09/07/2011 05:02:00) Eosinophils # [0.0-0.5 0.0 K/CMM 0.1 K/CMM 0.1 K/CMM K/CMM] (09/08/2011 03:47:00) (09/07/2011 05:54:00) (09/07/2011 05:02:00) Basophils # [0.0-0.2 0.0 K/CMM 0.0 K/CMM 0.0 K/CMM K/CMM] (09/08/2011 03:47:00) (09/07/2011 05:54:00) (09/07/2011 05:02:00) Anisocyte [None Seen] 1+ *ABN* (09/01/2011 02:47:00) Polychrom [None Seen] Slight (09/01/2011 02:47:00) Tear Cell Occasional *NA* (09/01/2011 02:47:00) Elliptocyte [None Seen] Slight *ABN* (09/01/2011 02:47:00) Large Plt [None Seen] Slight *ABN* (09/01/2011 02:47:00) PT [12.0-14.7 seconds] 12.7 seconds 13.3 seconds (09/07/2011 05:54:00) (09/07/2011 05:02:00) INR [0.85-1.17] 0.95 7 1.01 8 (09/07/2011 05:54:00) (09/07/2011 05:02:00) PTT [22.9-35.8 seconds] 28.5 seconds 9 32.2 seconds 10 (09/07/2011 05:54:00) (09/07/2011 05:02:00) 7Interpretive Data: RECOMMENDED RANGES FOR PROTIME INR: 2.0-3.0 for most medical and surgical thromboembolic states. 2.5-3.5 for artificial heart valves and recurrent embolism.INR SHOULD BE USED ONLY FOR PATIENTS ON STABLE ANTICOAGULANT THERAPY.8Interpretive Data: RECOMMENDED RANGES FOR PROTIME INR: 2.0-3.0 for most medical and surgical thromboembolic states. 2.5-3.5 for artificial heart valves and recurrent embolism.INR SHOULD BE USED ONLY FOR PATIENTS ON STABLE ANTICOAGULANT THERAPY.9Interpretive Data: Heparin Therapeutic Range: 57 - 92 [id number] Data: Heparin Therapeutic Range: 57 - 92 Seconds Microbiology Reports (Most Recent Ten) PROCEDURE:Culture: AFB w/Smear STATUS: In Progress BODY SITE: COLLECTED DATE/TIME: 09/01/2011 19:32:00 SOURCE: Tissue FREE TEXT SOURCE: rt septic bursitis, cup STAIN REPORTS Stain ReportNo Acid Fast Bacilli Seen On Smear PROCEDURE:Culture: AFB w/Smear STATUS: In Progress BODY SITE: COLLECTED DATE/TIME: 09/01/2011 19:32:00 SOURCE: Aspirate FREE TEXT SOURCE: rt septic barsitis, e-swab STAIN REPORTS Stain ReportNo Acid Fast Bacilli Seen On Smear PROCEDURE:Culture: AFB w/Smear STATUS: In Progress BODY SITE: COLLECTED DATE/TIME: 09/01/2011 19:32:00 SOURCE: Aspirate FREE TEXT SOURCE: rt septic bursitis, e-swab STAIN REPORTS Stain ReportNo Acid Fast Bacilli Seen On Smear PROCEDURE:Culture: Aspirate/Body Fluid/Tissue STATUS: Auth (Verified) BODY SITE: COLLECTED DATE/TIME: 09/01/2011 19:32:00 SOURCE: Tissue FREE TEXT SOURCE: rt septic bursitis, [place] [id number],cup FINAL REPORTS Final ReportMany Methicillin Resistant Staphylococcus aureus Refer To Culture # [id number] (collected 09/01/11) For Susceptibility ResultsPRELIMINARY REPORTS Preliminary ReportMany Staphylococcus aureus Preliminary ReportYoung Growth, ReincubatingSTAIN REPORTS Stain ReportMany Wbc'S; Moderate RBC's Moderate Gram Positive Cocci In Clusters Significant Findings Called To: Tara ALDRICH Kelly Hecker, RN At: 08/31 22:55:09 Called By: ROXANE Read Back Ok PROCEDURE:Culture: Fungal w/Smear STATUS: In Progress BODY SITE: COLLECTED DATE/TIME: 09/01/2011 19:32:00 SOURCE: Aspirate FREE TEXT SOURCE: rt septic barsitis, e-swab STAIN REPORTS Stain ReportNo Yeast Or Fungal Elements Seen PROCEDURE:Culture: Fungal w/Smear STATUS: In Progress BODY SITE: COLLECTED DATE/TIME: 09/01/2011 19:32:00 SOURCE: Aspirate FREE TEXT SOURCE: rt septic bursitis, e-swab STAIN REPORTS Stain ReportNo Yeast Or Fungal Elements Seen PROCEDURE:Culture: Fungal w/Smear STATUS: In Progress BODY SITE: COLLECTED DATE/TIME: 09/01/2011 19:32:00 SOURCE: Tissue FREE TEXT SOURCE: rt septic bursitis, cup STAIN REPORTS Stain ReportNo Yeast Or Fungal Elements Seen PROCEDURE:Culture: Aspirate/Body Fluid/Tissue STATUS: Auth (Verified) BODY SITE: COLLECTED DATE/TIME: 09/01/2011 19:32:00 SOURCE: Aspirate FREE TEXT SOURCE: rt septic barsitis , or [place] st, [id number],e- swab FINAL REPORTS Final ReportModerate Methicillin Resistant Staphylococcus aureus Refer To Culture # [id number] (collected 09/01/11) For Susceptibility ResultsPRELIMINARY REPORTS Preliminary ReportModerate Staphylococcus aureus Preliminary ReportYoung Growth, ReincubatingSTAIN REPORTS Stain ReportMany Wbc'S; Many Rbc'S Few Gram Positive Cocci In Clusters Significant Findings Called To: Tara ALDRICH Kelly Hecker, RN At: 09/01/2011 22:55:34 Called By: ROXANE Read Back Ok PROCEDURE:Culture: Aspirate/Body Fluid/Tissue STATUS: Auth (Verified) BODY SITE: COLLECTED DATE/TIME: 09/01/2011 19:32:00 SOURCE: Aspirate FREE TEXT SOURCE: rt septic bursitis,[place] [id number],e-swab FINAL REPORTS Final ReportMany Methicillin Resistant Staphylococcus aureusPRELIMINARY REPORTS Preliminary ReportYoung Growth, Reincubating Many Staphylococcus aureus Preliminary ReportMany Staphylococcus aureus Preliminary ReportYoung Growth, Reincubating STAIN REPORTS Stain ReportMany Wbc'S; Many Rbc'S Few Gram Positive Cocci In Clusters Significant Findings Called To: VALDEMAR, [id number], Olga Castorena RN At: 09/01/2011 22:52:25 Called By: ROXANE Read Back OkSUSCEPTIBILITY REPORT MRSA Antibiotic INTERP GAMALIEL Clindamycin S <=0.5 Erythromycin R >4 Gentamicin S <=2 Oxacillin R >2 Penicillin R >1 Rifampin S <=0.5 Tetracycline S <=0.5 Trimethoprim/Sulfamethoxazole S <=.5/9.5 Vancomycin S 1 PROCEDURE:Culture: Anaerobic STATUS: Auth (Verified) BODY SITE: COLLECTED DATE/TIME: 09/01/2011 19:32:00 SOURCE: Aspirate FREE TEXT SOURCE: rt septic barsitis, e-swab FINAL REPORTS Final ReportNo Anaerobes Isolated After 5 Days PRELIMINARY REPORTS Preliminary ReportNo Anaerobes Isolated After 2 Days Preliminary ReportNo Anaerobes Isolated After 3 Days
--- OUTSIDE RECORDS SUMMARY | 2018-06-18 11:44 | XMS REPORT | CCD ---
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 Medications Medication Instructions Start Date End Date Status Zofran ODT 4 mg oral 4 mg, 1 tab, PO, BID, PRN, Dissolve tab under tongue, 10 tab, Nausea and Vomiting, Substitution Allowed 04/15/2013 Ordered tablet, disintegrating Dissolve tab under tongue Saline Flush 0.9% 5 mL, Route: IVP, Drug 04/14/2013 04/15/2013 Discontinued Form: INJ, Dosing Weight 63.636, kg, PRN, PRN Line Flush, Start date: 04/14/13 23:10:00, Duration: 24 hr, Stop date: 04/15/13 23:09:00(Same as: BD Posiflush) morphine Sulfate 4 mg, Route: IVP, ONCE, 04/14/2013 04/15/2013 Completed Dosing Weight 63.636, kg, Priority: STAT, Start date: 04/14/13 23:10:00, Stop date: 04/14/13 23:10:00 ketorolac 30 mg, Route: IVP, ONCE, 04/14/2013 04/15/2013 Completed Dosing Weight 63.636, kg, Priority: STAT, Start date: 04/14/13 23:10:00, Stop date: 04/14/13 23:10:00 ondansetron 4 mg, Route: IVP, ONCE, 04/14/2013 04/15/2013 Completed Dosing Weight 63.636, kg, Priority: STAT, Start date: 04/14/13 23:10:00, Stop date: 04/14/13 23:10:00 Sodium Chloride 0.9% IV 1,000 mL, Rate: 125 04/14/2013 04/15/2013 Discontinued 1,000 mL ml/hr, Infuse over: 8 hr, Route: IV, Dosing Weight 63.636 kg, Total Volume: 1,000, Start date: 04/14/13 23:10:00, Duration: 30 day, Stop date: 05/14/13 23:09:00 Vital Signs Most recent to oldest 1 2 3 [Reference Range]: Height 160.02 cm (04/14/2013 21:06:00) Temperature Oral 98.7 DegF 98.2 DegF 98.6 DegF [96.4-99.1 DegF] (04/15/2013 01:10:00) (04/15/2013 00:37:00) (04/14/2013 21: 06:00) Systolic Blood Pressure 149 mmHg 145 mmHg 172 mmHg [90-140 mmHg] *HI* *HI* *HI* (04/15/2013 01:10:00) (04/15/2013 00:37:00) (04/14/2013 21:06:00) Diastolic Blood Pressure 89 mmHg 87 mmHg 107 mmHg [60-90 mmHg] (04/15/2013 01:10:00) (04/15/2013 00:37:00) *HI* (04/14/2013 21:06:00) Respiratory Rate [14-20 18 BRMIN 18 BRMIN 18 BRMIN BRMIN] (04/15/2013 01:10:00) (04/15/2013 00:37:00) (04/14/2013 21:06:00) Peripheral Pulse Rate 81 bpm 88 bpm 85 bpm [60-100 bpm] (04/15/2013 01:10:00) (04/15/2013 00:37:00) (04/14/2013 21:06: 00) Weight 63.636 kg (04/14/2013 21:06:00) Results URINALYSIS Most recent to oldest [Reference Range]: 1 UA Turbidity [Clear] Clear (04/14/2013 23:48:55) UA Color [Yellow] Yellow *NA* (04/14/2013 23:48:55) UA pH [5.0-8.0] 7.0 (04/14/2013 23:48:55) UA Spec Grav [<=1.030] 1.025 (04/14/2013 23:48:55) UA Glucose [Negative mg/dL] 500 mg/dL *ABN* (04/14/2013 23:48:55) UA Blood [Negative] Negative (04/14/2013 23:48:55) UA Ketones [Negative] Trace *ABN* (04/14/2013 23:48:55) UA Protein [Negative] Trace *ABN* (04/14/2013 23:48:55) UA Urobilinogen [0.1-1.0 EU/dL] 0.2 EU/dL (04/14/2013 23:48:55) UA Bili [Negative] Negative *NA* (04/14/2013 23:48:55) UA Leuk Est [Negative] Negative (04/14/2013 23:48:55) UA Nitrite [Negative] Negative (04/14/2013 23:48:55) UA WBC [None Seen /HPF] 0-2 /HPF (04/14/2013 23:48:55) UA Bacteria [None Seen /HPF] Occasional /HPF (04/14/2013 23:48:55) UA Sq Epi [Few /LPF] Moderate /LPF *ABN* (04/14/2013 23:48:55) UA Mucus [None Seen /LPF] Few /LPF (04/14/2013 23:48:55) UA [place] Yeast [None Seen /HPF] Occasional /HPF *ABN* (04/14/2013 23:48:55) Micro? Performed (04/14/2013 23:48:55) CHEMISTRY Most recent to oldest [Reference Range]: 1 Sodium Lvl [135-145 mEq/L] 140 mEq/L (04/14/2013 23:28:00) Potassium Lvl [3.5-5.1 mEq/L] 3.5 mEq/L (04/14/2013 23:28:00) Chloride Lvl [95-109 mEq/L] 104 mEq/L (04/14/2013::00) CO2 [24-32 mEq/L] 29 mEq/L (04/14/2013::00) AGAP [10.0-20.0 mEq/L] 10.5 mEq/L (04/14/2013::00) Creatinine Lvl [0.5-1.4 mg/dL] 0.5 mg/dL (04/14/2013::00) eGFR 130 mL/min/1.73m2 1 *NA* (04/14/2013::00) BUN [7-22 mg/dL] 3 mg/dL *LOW* (04/14/2013::) B/C Ratio [6-25] 6 (04/14/2013::) Glucose Lvl [70-99 mg/dL] 255 mg/dL 2 *HI* (04/14/2013::00) Total Protein [6.4-8.4 g/dL] 7.0 g/dL (04/14/2013::00) Albumin Lvl [3.5-5.0 g/dL] 2.9 g/dL *LOW* (04/14/2013::) Globulin [2.0-4.0 g/dL] 4.1 g/dL *HI* (04/14/2013::00) A/G Ratio [0.7-1.6] 0.7 (04/14/2013::00) Calcium Lvl [8.5-10.5 mg/dL] 8.7 mg/dL (04/14/2013::00) ALT [0-65 unit/L] 11 unit/L (04/14/2013::00) AST [0-37 unit/L] 20 unit/L (04/14/2013::00) Alk Phos [39-136 unit/L] 89 unit/L (04/14/2013::00) Bili Total [0.2-1.3 mg/dL] 0.5 mg/dL (04/14/2013::00) Lipase Lvl [73-393 unit/L] 233 unit/L (04/14/2013::00) S Preg [Negative] Negative *NA* (04/14/2013) 1Result Comment: The eGFR is calculated using the CKD-EPI formula. In most young , healthy individualsthe eGFR will be >90 mL/min/1.73m2. The eGFR declines with age. An eGFR of 60-89 may be normal in some populations, particularly the elderly, for whom the CKD-EPI formula has not been extensively validated. Use of the eGFR is not recommended in the following populations: Individuals with unstable creatinine concentrations, including patients and those with serious co-morbid conditions. Patients with extremes in muscle mass or diet. The data above are obtained from the National Kidney Disease Education Program ( NKDEP) which additionally recommends that when the eGFR is used in patients with extremes of body mass index for purposesof drug dosing, the eGFR should be multiplied by the estimated BMI.2Interpretive Data: Adult reference range values reflect the clinical guidelines of the [place] [employer].HEMATOLOGY Most recent to oldest [Reference Range]: 1 WBC [3.7-10.4 K/CMM] 6.2 K/CMM (04/14/2013::00) RBC [4.20-5.40 M/CMM] 3.41 M/CMM *LOW* (04/14/2013::) Hgb [12.0-16.0 g/dL] 10.0 g/dL *LOW* (04/14/2013::) Hct [36.0-48.0 %] 29.4 % *LOW* (04/14/2013::) MCV [81.0-99.0 fL] 86.1 fL (04/14/2013::) MCH [27.0-31.0 pg] 29.4 pg (04/14/2013) MCHC [32.0-36.0 g/dL] 34.1 g/dL (04/14/2013::) RDW [11.5-14.5 %] 14.0 % (04/14/2013::) Platelet [133-450 K/CMM] 178 K/CMM (04/14/2013 23:28:00) MPV [7.4-10.4 fL] 10.1 fL (04/14/2013:28:00) Segs [45.0-75.0 %] 70.7 % (04/14/2013:28:00) Lymphocytes [20.0-40.0 %] 20.0 % (04/14/2013:28:00) Monocytes [2.0-12.0 %] 4.5 % (04/14/2013:28:00) Eosinophils [0.0-4.0 %] 4.1 % *HI* (04/14/2013::) Basophils [0.0-1.0 %] 0.7 % (04/14/2013::00) Segs-Bands # [1.5-8.1 K/CMM] 4.4 K/CMM (04/14/2013:28:00) Lymphocytes # [1.0-5.5 K/CMM] 1.2 K/CMM (04/14/2013 23:28:00) Monocytes # [0.0-0.8 K/CMM] 0.3 K/CMM (04/14/2013 23:28:00) Eosinophils # [0.0-0.5 K/CMM] 0.3 K/CMM (04/14/2013 23:28:00) Basophils # [0.0-0.2 K/CMM] 0.0 K/CMM (04/14/2013:28:00) PT [12.0-14.7 seconds] 12.1 seconds (04/14/2013:28:00) INR [0.85-1.17] 0.90 3 (04/14/2013:28:00) PTT [22.9-35.8 seconds] 39.0 seconds 4 *HI* (04/14/2013::00) 3Interpretive Data: RECOMMENDED RANGES FOR PROTIME INR: 2.0-3.0 for most medical and surgical thromboembolic states. 2.5-3.5 for artificial heart valves and recurrent embolism. INR SHOULD BE USED ONLY FOR PATIENTS ON STABLE ANTICOAGULANT THERAPY.4Interpretive Data: Heparin Therapeutic Range: 57 - 92 Seconds Procedures Procedures Date Related Diagnosis Emergency department visit for the evaluation 04/15/2013 00:00:00 and management of a patient, which requires these 3 kamara components within the constraints imposed by the urgency of the patient's clinical condition and/or mental status: A comprehensive history; A comprehensi Injection or Infusion of Other Therapeutic or 04/15/2013 00:00:00 Prophylactic Substance Intravenous infusion, hydration; each 04/15/2013 00:00:00 additional hour (List separately in addition to code for primary procedure) Therapeutic, prophylactic, or diagnostic 04/15/2013 00:00:00 injection (specify substance or drug); each additional sequential intravenous push of a new substance/drug (List separately in addition to code for primary procedure) Therapeutic, prophylactic, or diagnostic 04/15/2013 00:00:00 injection (specify substance or drug); each additional sequential intravenous push of a new substance/drug (List separately in addition to code for primary procedure) Therapeutic, prophylactic, or diagnostic 04/15/2013 00:00:00 injection (specify substance or drug); intravenous push, single or initial substance/drug
--- OUTSIDE RECORDS SUMMARY | 2018-06-18 11:44 | XMS REPORT | CCD ---
:1980 Author Organization [facility] Care Team Providers Name Role [...] Active Nausea and vomiting Active - Elbow [id number] added by Discern Expert. Medications Medication Instructions [...] Seen /LPF] Few /LPF (04/14/2013 23:48:55) UA [place] Yeast [None Seen /HPF] Occasional /HPF *ABN* [...] (04/14/2013::00) BUN [7-22 mg/dL] 3 mg/dL *LOW* (04/14/2013::00) B/C Ratio [6-25] 6 (04/14/2013::00) Glucose Lvl [70-99 mg/dL] 255 mg/dL 2 [...] (04/14/2013::00) Lipase Lvl [73-393 unit/L] 233 unit/L (04/14/2013::) S Preg [Negative] Negative *NA* (04/14/2013) 1Result [...] values reflect the clinical guidelines of the [place] [employer].HEMATOLOGY Most recent to oldest [Reference Range]: 1 WBC [3.7-10.4 K/CMM] 6.2 K/CMM (04/14/2013::00) RBC [4.20-5.40 M/CMM] 3.41 M/CMM *LOW* (04/14/2013::) Hgb [12.0-16.0 g/dL] 10.0 g/dL *LOW* (04/14/2013::) Hct [36.0-48.0 %] 29.4 % *LOW* (04/14/2013::) MCV [81.0-99.0 fL] 86.1 fL (04/14/2013::00) MCH [27.0-31.0 pg] 29.4 pg (04/14/2013::) MCHC [32.0-36.0 g/dL] 34.1 g/dL (04/14/2013::00) RDW [11.5-14.5 %] 14.0 % (04/14/2013::) Platelet [133-450 K/CMM] 178 K/CMM (04/14/2013:28:00) MPV [7.4-10.4 fL] 10.1 fL (04/14/2013:28:00) Segs [...] 23:28:00) Eosinophils # [0.0-0.5 K/CMM] 0.3 K/CMM (04/14/2013:28:00) Basophils # [0.0-0.2 K/CMM] 0.0 K/CMM (04/14/2013:28:00) PT [12.0-14.7 seconds] 12.1 seconds (04/14/2013:28:00) INR [0.85-1.17] 0.90 3 (04/14/2013::00) PTT [22.9-35.8 seconds] 39.0 seconds 4 *HI* (04/14/2013::00) 3Interpretive Data: RECOMMENDED RANGES FOR PROTIME INR: 2.0-3.0 for most medical and surgical thromboembolic states. 2.5-3.5 for artificial heart valves and recurrent embolism. INR SHOULD BE USED ONLY FOR PATIENTS ON STABLE ANTICOAGULANT THERAPY.4Interpretive Data: Heparin Therapeutic Range: 57 - 92 Seconds
--- OUTSIDE RECORDS SUMMARY | 2018-06-18 11:44 | XMS REPORT | CCD ---
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 Medications Medication Instructions Start Date End Date Status Novolin R 100 units/mL 8 unit, SUB-Q, Q12H, 2 09/18/2011 Ordered injectable solution vial, Substitution Allowed, SOLN magnesium oxide 400 mg, 1 tab, Route: 09/18/2011 09/18/2011 Completed PO, Drug form: TAB, ONCE, Priority: STAT, Start date: 09/18/11 9:55:00, Stop date: 09/18/11 9:55:00 Novolin N 100 units/mL 10 unit, SUB-Q, 09/18/2011 Ordered subcutaneous injection Bedtime, 10 ml, Substitution Allowed, SUSP sulfamethoxazole Substitution Allowed 09/18/2011 Ordered Sodium Chloride 0.9% 1,000 mL, Rate: 1,000 09/18/2011 09/18/2011 Completed (Bolus) IV 1000 mL ml/hr, Infuse over: 1 hr, Route: IV, kg, Total Volume: 1,000, Bolus Dose, Priority: STAT, Start date: 09/18/11 8:56:00, Duration: 1 doses or times, Stop date: 09/18/11 9:55:00 Lactated Ringers (Bolus) IV 1,000 mL, Rate: 1,000 09/18/2011 09/18/2011 Completed 1,000 mL ml/hr, Infuse over: 1 hr, Route: IV, Total Volume: 1,000, Bolus Dose, Priority: STAT, Start date: 09/18/11 9:16:00, Duration: 1 doses or times, Stop date: 09/18/11 10:15:00 Novolin N 100 units/mL 14 unit, SUB-Q, QAM, 1 09/18/2011 Ordered subcutaneous injection vial, Substitution Allowed, SUSP Sodium Chloride 0.9% 1,000 mL, Rate: 1,000 09/18/2011 09/18/2011 Discontinued (Bolus) IV 1000 mL ml/hr, Infuse over: 1 hr, Route: IV, kg, Total Volume: 1,000, Bolus Dose, Priority: STAT, Start date: 09/18/11 9:06:00, Duration: 1 doses or times, Stop date: 09/18/11 10:05:00 Insulin regular 8 unit, 0.08 mL, Route: 09/18/2011 09/18/2011 Completed SUB-Q, Drug form: SOLN, ONCE, Priority: STAT, Start date: 09/18/11 9:22:00, Stop date: 09/18/11 9:22:00 Vital Signs Most recent to oldest [Reference Range]: 1 Height 154.94 cm (09/18/2011 08:30:00) Weight 66.364 kg (09/18/2011 08:30:00) Results BEDSIDE GLUCOSE TESTING Most recent to oldest [Reference 1 2 Range]: Gluc POC [place] [70-99 mg/dL] 328 mg/dL 1 >400 mg/dL 2 *HI* *CRIT* (09/18/2011 11:20:00) (09/18/2011 09:01:00) Comment1 Notify RN/MD *NA* (09/18/2011 11:20:00) 1Interpretive Data: Upper Reportable Limit: 200 mg/dL.2Interpretive Data: Upper Reportable Limit: 200 mg/dL.URINALYSIS Most recent to oldest [Reference Range]: 1 2 UA Turbidity [Clear] Slight Cloudy (09/18/2011 10:30:00) UA Color [Yellow] Yellow *NA* (09/18/2011 10:30:00) UA pH [5.0-8.0] 7.5 (09/18/2011 10:30:00) UA Spec Grav [<=1.030] 1.010 (09/18/2011 10:30:00) UA Glucose [Negative mg/dL] >=1000 mg/dL *ABN* (09/18/2011 10:30:00) UA Blood [Negative] Negative (09/18/2011 10:30:00) UA Ketones [Negative mg/dL] 15 mg/dL *ABN* (09/18/2011 10:30:00) UA Protein [Negative] Trace *ABN* (09/18/2011 10:30:00) UA Urobilinogen [0.1-1.0 EU/dL] 0.2 EU/dL (09/18/2011 10:30:00) UA Bili [Negative] Negative *NA* (09/18/2011 10:30:00) UA Leuk Est [Negative] Negative (09/18/2011 10:30:00) UA Nitrite [Negative] Negative (09/18/2011 10:30:00) UA WBC [None Seen] None Seen (09/18/2011 10:30:00) UA RBC [0-2] None Seen (09/18/2011 10:30:00) UA Bacteria [None Seen] None Seen (09/18/2011 10:30:00) UA Sq Epi [Few /LPF] Rare /LPF (09/18/2011 10:30:00) UA Amorph Destiny [None Seen /HPF] Few /HPF *ABN* (09/18/2011 10:30:00) Micro? Performed (09/18/2011 10:30:00) CHEMISTRY Most recent to oldest [Reference Range]: 1 2 Sodium Lvl [135-145 mEq/L] 133 mEq/L *LOW* (09/18/2011 08:52:00) Potassium Lvl [3.5-5.1 mEq/L] 3.5 mEq/L (09/18/2011 08:52:00) Chloride Lvl [95-109 mEq/L] 92 mEq/L *LOW* (09/18/2011 08:52:00) CO2 [24-32 mEq/L] 30 mEq/L (09/18/2011 08:52:00) AGAP [10.0-20.0 mEq/L] 14.5 mEq/L (09/18/2011 08:52:00) Creatinine Lvl [0.5-1.4 mg/dL] 1.3 mg/dL (09/18/2011 08:52:00) BUN [7-22 mg/dL] 17 mg/dL (09/18/2011 08:52:00) Glucose Lvl [70-99 mg/dL] 383 mg/dL 3 *HI* (09/18/2011 08:52:00) Calcium Lvl [8.5-10.5 mg/dL] 10.1 mg/dL (09/18/2011 08:52:00) Phosphorus [2.5-4.5 mg/dL] 4.4 mg/dL (09/18/2011 09:07:00) Magnesium Lvl [1.8-2.4 mg/dL] 1.6 mg/dL *LOW* (09/18/2011 09:07:00) U Preg [Negative] Negative (09/18/2011 10:30:00) pH [place] [7.28-7.42] 7.47 *HI* (09/18/2011 08:52:00) pCO2 [place] [38-52 mmHg] 44 mmHg (09/18/2011 08:52:00) pO2 [place] [20-49 mmHg] 24 mmHg (09/18/2011 08:52:00) HCO3 [place] [22.0-26.0 mMol/L] 32.0 mMol/L *HI* (09/18/2011 08:52:00) BE [place] [-2-2 mMol/L] 7 mMol/L *HI* (09/18/2011 08:52:00) O2 Sat [place] [40.0-70.0 %] 48.0 % (09/18/2011 08:52:00) Temp [place] 37.0 DegC *NA* (09/18/2011 08:52:00) 3Interpretive Data: Adult reference range values reflect the clinical guidelinesof the [place] [employer].HEMATOLOGY Most recent to oldest [Reference Range]: 1 2 WBC [3.7-10.4 K/CMM] 11.7 K/CMM *HI* (09/18/2011 08:52:00) RBC [4.20-5.40 M/CMM] 4.30 M/CMM (09/18/2011 08:52:00) Hgb [12.0-16.0 g/dL] 12.3 g/dL (09/18/2011 08:52:00) Hct [36.0-48.0 %] 36.4 % (09/18/2011 08:52:00) MCV [81.0-99.0 fL] 84.6 fL (09/18/2011 08:52:00) MCH [27.0-31.0 pg] 28.5 pg (09/18/2011 08:52:00) MCHC [32.0-36.0 g/dL] 33.7 g/dL (09/18/2011 08:52:00) RDW [11.5-14.5 %] 15.1 % *HI* (09/18/2011 08:52:00) Platelet [133-450 K/CMM] 226 K/CMM (09/18/2011 08:52:00) MPV [7.4-10.4 fL] 12.0 fL *HI* (09/18/2011 08:52:00) Segs [45.0-75.0 %] 92.0 % *HI* (09/18/2011 08:52:00) Lymphocytes [20.0-40.0 %] 4.9 % *LOW* (09/18/2011 08:52:00) Monocytes [2.0-12.0 %] 2.9 % (09/18/2011 08:52:00) Eosinophils [0.0-4.0 %] 0.2 % (09/18/2011 08:52:00) Basophils [0.0-1.0 %] 0.0 % (09/18/2011 08:52:00) Segs-Bands # [1.5-8.1 K/CMM] 10.8 K/CMM *HI* (09/18/2011 08:52:00) Lymphocytes # [1.0-5.5 K/CMM] 0.6 K/CMM *LOW* (09/18/2011 08:52:00) Monocytes # [0.0-0.8 K/CMM] 0.3 K/CMM (09/18/2011 08:52:00) Eosinophils # [0.0-0.5 K/CMM] 0.0 K/CMM (09/18/2011 08:52:00) Basophils # [0.0-0.2 K/CMM] 0.0 K/CMM (09/18/2011 08:52:00) Anisocyte [None Seen] 1+ *ABN* (09/18/2011 08:52:00) Macrocyte [None Seen] 1+ *ABN* (09/18/2011 08:52:00) Microcyte [None Seen] 1+ *ABN* (09/18/2011 08:52:00) Spherocyte [None Seen] Rare *ABN* (09/18/2011 08:52:00) Schistocyte Rare *NA* (09/18/2011 08:52:00) Large Plt [None Seen] Slight *ABN* (09/18/2011 08:52:00) IMMUNOLOGY Most recent to oldest [Reference Range]: 1 2 CDC-HIV 1/2 Ab [Negative] Negative *NA* (09/18/2011 08:52:00)
--- OUTSIDE RECORDS SUMMARY | 2018-06-18 11:44 | XMS REPORT | CCD ---
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 Medications Medication Instructions [...] Seen /LPF] Few /LPF (04/14/2013 23:48:55) [facility] [place] Yeast [None Seen /HPF] Occasional /HPF *ABN* [...] values reflect the clinical guidelines of the [place] [employer].HEMATOLOGY Most recent to oldest [Reference [...]
--- OUTSIDE RECORDS SUMMARY | 2018-06-18 11:44 | XMS REPORT | CCD ---
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 Medications Medication Instructions Start Date End Date Status Sodium Chloride 0.9% 500 mL, Rate: 500 ml/hr, 03/14/2012 03/14/2012 Completed (Bolus) IV 500 mL Infuse over: 1 hr, Route: IV, kg, Total Volume: 500, Bolus Dose, Priority: STAT, Start date: 03/14/12 18:45:00, Duration: 1 doses or times, Stop date: 03/14/12 19:44:00 ondansetron 4 mg, Route: IVP, ONCE, 03/14/2012 03/14/2012 Completed Dosing Weight 58.636, kg, Priority: STAT, Start date: 03/14/12 17:19:00, Stop date: 03/14/12 17:19:00 morphine Sulfate 5 mg, Route: IVP, ONCE, 03/14/2012 03/14/2012 Completed Dosing Weight 58.636, kg, Priority: STAT, Start date: 03/14/12 17:19:00, Stop date: 03/14/12 17:19:00 pantoprazole 40 mg, Route: IVP, ONCE, 03/14/2012 03/14/2012 Completed Dosing Weight 58.636, kg, For IV push reconstitute with 10 ml 0.9% sodium chloride and push over at least 3 minutes, Priority: STAT, Start date: 03/14/12 17:19:00, Stop date: 03/14/12 17:19:00 Sodium Chloride 0.9% 500 mL, Rate: 1,000 ml/hr, 03/14/2012 03/14/2012 Completed (Bolus) IV 500 mL Infuse over: 0.5 hr, Route: IV, kg, Total Volume: 500, Bolus dose, Priority: STAT, Start date: 03/14/12 17:19:00, Duration: 1 doses or times, Stop date: 03/14/12 17:48:00 morphine Sulfate 5 mg, Route: IVP, ONCE, 03/14/2012 03/14/2012 Completed Dosing Weight 58.636, kg, Priority: STAT, Start date: 03/14/12 20:15:00, Stop date: 03/14/12 20:15:00 Vital Signs Most recent to oldest [Reference Range]: 1 Weight 58.636 kg (03/14/2012 16:33:00) Results BEDSIDE GLUCOSE TESTING Most recent to oldest [Reference Range]: 1 Gluc POC [place] [70-99 mg/dL] 260 mg/dL 1 *HI* (03/14/2012 20:12:00) Comment1 Notify RN/MD *NA* (03/14/2012 20:12:00) 1Interpretive Data: Upper Reportable Limit: 200 mg/dL.URINALYSIS Most recent to oldest [Reference Range]: 1 UA Turbidity [Clear] Clear (03/14/2012 18:40:00) UA Color [Yellow] Yellow *NA* (03/14/2012 18:40:00) UA pH [5.0-8.0] 6.0 (03/14/2012 18:40:00) UA Spec Grav [<=1.030] >=1.030 *ABN* (03/14/2012 18:40:00) UA Glucose [Negative mg/dL] >=1000 mg/dL *ABN* (03/14/2012 18:40:00) UA Blood [Negative] Negative (03/14/2012 18:40:00) UA Ketones [Negative mg/dL] >=80 mg/dL *NA* (03/14/2012 18:40:00) UA Protein [Negative] Trace *ABN* (03/14/2012 18:40:00) UA Urobilinogen [0.1-1.0 EU/dL] 0.2 EU/dL (03/14/2012 18:40:00) UA Bili [Negative] Negative *NA* (03/14/2012 18:40:00) UA Leuk Est [Negative] Negative (03/14/2012 18:40:00) UA Nitrite [Negative] Negative (03/14/2012 18:40:00) UA WBC [None Seen /HPF] 3-5 /HPF (03/14/2012 18:40:00) UA Bacteria [None Seen /HPF] Occasional /HPF (03/14/2012 18:40:00) UA Sq Epi [Few /LPF] Occasional /LPF (03/14/2012 18:40:00) CHEMISTRY Most recent to oldest [Reference Range]: 1 Sodium Lvl [135-145 mEq/L] 139 mEq/L (03/14/2012 17:50:00) Potassium Lvl [3.5-5.1 mEq/L] 3.8 mEq/L (03/14/2012 17:50:00) Chloride Lvl [95-109 mEq/L] 99 mEq/L (03/14/2012 17:50:00) CO2 [24-32 mEq/L] 27 mEq/L (03/14/2012 17:50:00) AGAP [10.0-20.0 mEq/L] 16.8 mEq/L (03/14/2012 17:50:00) Creatinine Lvl [0.5-1.4 mg/dL] 0.7 mg/dL (03/14/2012 17:50:00) BUN [7-22 mg/dL] 15 mg/dL (03/14/2012 17:50:00) B/C Ratio [6-25] 21 (03/14/2012 17:50:00) Glucose Lvl [70-99 mg/dL] 301 mg/dL 2 *HI* (03/14/2012 17:50:00) Total Protein [6.4-8.4 g/dL] 8.2 g/dL (03/14/2012 17:50:00) Albumin Lvl [3.5-5.0 g/dL] 4.4 g/dL (03/14/2012 17:50:00) Globulin [2.0-4.0 g/dL] 3.8 g/dL (03/14/2012 17:50:00) A/G Ratio [0.7-1.6] 1.2 (03/14/2012 17:50:00) Calcium Lvl [8.5-10.5 mg/dL] 9.9 mg/dL (03/14/2012 17:50:00) ALT [0-65 unit/L] 24 unit/L (03/14/2012 17:50:00) AST [0-37 unit/L] 20 unit/L (03/14/2012 17:50:00) Alk Phos [39-136 unit/L] 67 unit/L (03/14/2012 17:50:00) Bili Total [0.2-1.3 mg/dL] 1.1 mg/dL (03/14/2012 17:50:00) Lipase Lvl [73-393 unit/L] 45 unit/L *LOW* (03/14/2012 17:50:00) S Preg [Negative] Negative *NA* (03/14/2012:50:00) 2Interpretive Data: Adult reference range values reflect the clinical guidelines of the [place] [employer].HEMATOLOGY Most recent to oldest [Reference Range]: 1 WBC [3.7-10.4 K/CMM] 11.7 K/CMM *HI* (03/14/2012 17:50:00) RBC [4.20-5.40 M/CMM] 4.68 M/CMM (03/14/2012 17:50:00) Hgb [12.0-16.0 g/dL] 14.6 g/dL (03/14/2012 17:50:00) Hct [36.0-48.0 %] 40.7 % (03/14/2012 17:50:00) MCV [81.0-99.0 fL] 87.0 fL (03/14/2012 17:50:00) MCH [27.0-31.0 pg] 31.2 pg *HI* (03/14/2012 17:50:00) MCHC [32.0-36.0 g/dL] 35.9 g/dL (03/14/2012 17:50:00) RDW [11.5-14.5 %] 13.1 % (03/14/2012 17:50:00) Platelet [133-450 K/CMM] 189 K/CMM (03/14/2012 17:50:00) MPV [7.4-10.4 fL] 11.8 fL *HI* (03/14/2012 17:50:00) Segs [45.0-75.0 %] 90.4 % *HI* (03/14/2012 17:50:00) Lymphocytes [20.0-40.0 %] 6.0 % *LOW* (03/14/2012 17:50:00) Monocytes [2.0-12.0 %] 3.4 % (03/14/2012 17:50:00) Eosinophils [0.0-4.0 %] 0.0 % (03/14/2012 17:50:00) Basophils [0.0-1.0 %] 0.2 % (03/14/2012 17:50:00) Segs-Bands # [1.5-8.1 K/CMM] 10.6 K/CMM *HI* (03/14/2012 17:50:00) Lymphocytes # [1.0-5.5 K/CMM] 0.7 K/CMM *LOW* (03/14/2012 17:50:00) Monocytes # [0.0-0.8 K/CMM] 0.4 K/CMM (03/14/2012 17:50:00) Eosinophils # [0.0-0.5 K/CMM] 0.0 K/CMM (03/14/2012 17:50:00) Basophils # [0.0-0.2 K/CMM] 0.0 K/CMM (03/14/2012 17:50:00) RBC Morph Normal (03/14/2012 17:50:00) Plt Morph Normal (03/14/2012 17:50:00)
--- OUTSIDE RECORDS SUMMARY | 2018-06-18 11:45 | XMS REPORT | CCD ---
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 Medications Medication Instructions [...] Seen /LPF] Few /LPF (04/14/2013 23:48:55) UA [place] Yeast [None Seen /HPF] Occasional /HPF *ABN* [...] values reflect the clinical guidelines of the [place] [employer].HEMATOLOGY Most recent to oldest [Reference [...]
--- OUTSIDE RECORDS SUMMARY | 2018-06-18 11:45 | XMS REPORT | CCD ---
:1980 Author Organization [facility] Care Team Providers Name Role [...] Active Nausea and vomiting Active - Elbow [id number] added by Discern Expert. Medications Medication Instructions [...] Seen /LPF] Few /LPF (04/14/2013 23:48:55) UA [place] Yeast [None Seen /HPF] Occasional /HPF *ABN* [...] values reflect the clinical guidelines of the [place] [employer].HEMATOLOGY Most recent to oldest [Reference [...]
--- OUTSIDE RECORDS SUMMARY | 2018-06-18 11:46 | XMS REPORT ---
:1980 [facility] Address [address] [place] [address] Care Team Providers Name Role Phone MOISE BHAKTA Unavailable Unavailable Problems This patient has no known problems. Allergies, Adverse Reactions, Alerts This patient has no known allergies or adverse reactions. Medications This patient has no known medications. Results Test Description Test Time Test Comments Text Results Atomic Results Result Comments HERPES VIRUS ANTIBODY, IGM 2017-01-11 21:46:00 Test Item Value Reference Range Comments HERPES VIRUS IGM (BEAKER) (test pkkd=6955) Negative SEE ATTACHMENT BLOOD [id number] 06:00:00 Test Item Value Reference Range Comments CULTURE (BEAKER) (test cduy=1724) No growth in 5 days BLOOD [id number] 06:00:00 Test Item Value Reference Range Comments CULTURE (BEAKER) (test iehn=4669) No growth in 5 days POCT-GLUCOSE [id number] 12:11:00 Test Item Value Reference Range Comments POC-GLUCOSE METER (BEAKER) 154 mg/dL 70-110 TESTED AT [address] (test crty=7965) [facility] [address] POCT-GLUCOSE [id number] 07:53:00 Test Item Value Reference Range Comments POC-GLUCOSE METER (BEAKER) 87 mg/dL 70-110 TESTED AT [address] (test awov=7404) [facility] [address] POCT-GLUCOSE [id number] 06:49:00 Test Item Value Reference Range Comments POC-GLUCOSE METER (BEAKER) 79 mg/dL 70-110 TESTED AT [address] (test ctpt=8933) [facility] [address] COMPREHENSIVE METABOLIC [id number] 06:15:00 Test Item Value Reference Range Comments TOTAL PROTEIN (BEAKER) 5.1 gm/dL 6.0-8.3 (test wqnn=040) ALBUMIN (BEAKER) (test 2.2 g/dL 3.5-5.0 zqmo=4626) ALKALINE PHOSPHATASE 78 U/L 40-150 (BEAKER) (test lyow=035) BILIRUBIN TOTAL (BEAKER) 1.1 mg/dL 0.2-1.2 (test gabo=945) SODIUM (BEAKER) (test 142 meq/L 136-145 asov=087) POTASSIUM (BEAKER) (test 3.6 meq/L 3.5-5.1 sptq=943) CHLORIDE (BEAKER) (test 106 meq/L 98-107 sskz=804) CO2 (BEAKER) (test 27 meq/L 22-29 cxrf=272) BLOOD UREA NITROGEN 29 mg/dL 7-21 (BEAKER) (test vawg=458) CREATININE (BEAKER) (test 2.70 mg/dL 0.57-1.25 ilaw=207) GLUCOSE RANDOM (BEAKER) 79 mg/dL 70-105 (test kuzy=208) CALCIUM (BEAKER) (test 8.2 mg/dL 8.4-10.2 fvwv=679) AST (SGOT) (BEAKER) (test 256 U/L 5-34 gnty=387) ALT (SGPT) (BEAKER) (test 513 U/L 6-55 sgum=094) EGFR (BEAKER) (test 20 mL/min/1.73 sq m ESTIMATED GFR IS NOT qxgf=3641) ACCURATE CREATININE CLEARANCE IN PREDICTING GLOMERULAR FILTRATION RATE. ESTIMATED GFR IS NOT APPLICABLE FOR DIALYSIS PATIENTS. [id number] 06:11:00 Test Item Value Reference Range Comments MAGNESIUM (BEAKER) (test cupg=678) 2.1 mg/dL 1.6-2.6 HEPATIC FUNCTION [id number] 06:11:00 Test Item Value Reference Range Comments TOTAL PROTEIN (BEAKER) (test cqcw=736) 5.1 gm/dL 6.0-8.3 ALBUMIN (BEAKER) (test qdmx=2345) 2.2 g/dL 3.5-5.0 BILIRUBIN TOTAL (BEAKER) (test ifkn=225) 1.1 mg/dL 0.2-1.2 BILIRUBIN DIRECT (BEAKER) (test syxp=907) 0.7 mg/dL 0.1-0.5 ALKALINE PHOSPHATASE (BEAKER) (test cumx=316) 78 U/L 40-150 AST (SGOT) (BEAKER) (test ifur=270) 256 U/L 5-34 ALT (SGPT) (BEAKER) (test exba=992) 513 U/L 6-55 [id number] 05:30:00 Test Item Value Reference Range Comments FIBRINOGEN LEVEL (BEAKER) (test ippm=720) 368 mg/dl 225-434 [id number] 05:30:00 Test Item Value Reference Range Comments PARTIAL THROMBOPLASTIN TIME (BEAKER) (test 42.2 seconds 22.5-36.0 tbsq=055) PROTHROMBIN [id number] 05:29:00 Test Item Value Reference Range Comments PROTIME (BEAKER) (test lcjb=379) 14.8 seconds 11.7-14.7 INR (BEAKER) (test gvkn=287) 1.2 <=5.9 RECOMMENDED COUMADIN/WARFARIN INR THERAPY RANGESSTANDARD DOSE: 2.0 - 3.0 Includes: PROPHYLAXIS forvenous thrombosis, systemic embolization; TREATMENT for venous thrombosis and/or pulmonary embolus.HIGH RISK: Target INR is 2.5-3.5 for patients with mechanical heart valves.POCT-GLUCOSE [id number] 21:09:00 Test Item Value Reference Range Comments POC-GLUCOSE METER (BEAKER) 178 mg/dL 70-110 TESTED AT [address] (test wqsv=1950) [place] [address] POCT-GLUCOSE [id number] 17:18:00 Test Item Value Reference Range Comments POC-GLUCOSE METER (BEAKER) 178 mg/dL 70-110 TESTED AT [address] (test xepi=0564) [place] [address] POCT-GLUCOSE [id number] 13:48:00 Test Item Value Reference Range Comments POC-GLUCOSE METER (BEAKER) 150 mg/dL 70-110 TESTED AT [address] (test iavl=7565) [place] [address] FACTOR 5 ACTIVITY (BLEEDING RISK)2017-01-06 10:04:00 Test Item Value Reference Range Comments FACTOR V ACTIVITY (BEAKER) (test vbpq=311) 90.0 % 60.0-150.0 Effective 10/24/2013: Reference Range Change-Adult onlyNew: 60.0-150.0 Previous : 50.0-150.0CYTOMEGALOVIRUS ANTIBODY, [id number] 09:42:00 Test Item Value Reference Range Comments CYTOMEGALOVIRUS IGM ANTIBODY (BEAKER) (test Negative fzrl=231) HERPES VIRUS ANTIBODY, [id number] 08:59:00 Test Item Value Reference Range Comments HERPES VIRUS IGG (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 kgki=5533) CYTOMEGALOVIRUS ANTIBODY, [id number] 08:59:00 Test Item Value Reference Range Comments CYTOMEGALOVIRUS IGG ANTIBODY (BEAKER) (test Positive vdmg=808) EBV-VCA ANTIBODY, [id number] 08:59:00 Test Item Value Reference Range Comments JASE-WALL VCA IGG (BEAKER) (test zfut=669) Positive EBV-VCA ANTIBODY, [id number] 08:59:00 Test Item Value Reference Range Comments JASE-WALL VCA IGM (BEAKER) (test csod=837) Negative POCT-GLUCOSE [id number] 07:59:00 Test Item Value Reference Range Comments POC-GLUCOSE METER (BEAKER) 81 mg/dL 70-110 TESTED AT [facility] [address] [facility] (test zccv=9684) [facility] [address] COMPREHENSIVE METABOLIC [id number] 06:23:00 Test Item Value Reference Range Comments TOTAL PROTEIN (BEAKER) 5.3 gm/dL 6.0-8.3 (test nmrg=340) ALBUMIN (BEAKER) (test 2.4 g/dL 3.5-5.0 vdqg=6772) ALKALINE PHOSPHATASE 85 U/L 40-150 (BEAKER) (test klnn=659) BILIRUBIN TOTAL (BEAKER) 1.5 mg/dL 0.2-1.2 (test wkzm=233) SODIUM (BEAKER) (test 142 meq/L 136-145 hgtf=364) POTASSIUM (BEAKER) (test 3.5 meq/L 3.5-5.1 irqe=624) CHLORIDE (BEAKER) (test 103 meq/L 98-107 ysxu=595) CO2 (BEAKER) (test 27 meq/L 22-29 msjb=734) BLOOD UREA NITROGEN 30 mg/dL 7-21 (BEAKER) (test adyw=085) CREATININE (BEAKER) (test 3.00 mg/dL 0.57-1.25 bcyk=419) GLUCOSE RANDOM (BEAKER) 99 mg/dL 70-105 (test nbhn=953) CALCIUM (BEAKER) (test 8.7 mg/dL 8.4-10.2 pqqo=511) AST (SGOT) (BEAKER) (test 364 U/L 5-34 ewta=685) ALT (SGPT) (BEAKER) (test 779 U/L 6-55 jwry=346) EGFR (BEAKER) (test 18 mL/min/1.73 sq m ESTIMATED GFR IS NOT nzsw=6852) ACCURATE CREATININE CLEARANCE IN PREDICTING GLOMERULAR FILTRATION RATE. ESTIMATED GFR IS NOT APPLICABLE FOR DIALYSIS PATIENTS. [id number] 06:17:00 Test Item Value Reference Range Comments MAGNESIUM (BEAKER) (test iiek=013) 1.8 mg/dL 1.6-2.6 HEPATIC FUNCTION [id number] 06:17:00 Test Item Value Reference Range Comments TOTAL PROTEIN (BEAKER) (test afxn=713) 5.3 gm/dL 6.0-8.3 ALBUMIN (BEAKER) (test gold=7503) 2.4 g/dL 3.5-5.0 BILIRUBIN TOTAL (BEAKER) (test cano=527) 1.5 mg/dL 0.2-1.2 BILIRUBIN DIRECT (BEAKER) (test gpqm=745) 1.0 mg/dL 0.1-0.5 ALKALINE PHOSPHATASE (BEAKER) (test nsku=062) 85 U/L 40-150 AST (SGOT) (BEAKER) (test aszj=505) 364 U/L 5-34 ALT (SGPT) (BEAKER) (test asam=864) 779 U/L 6-55 [id number] 06:00:00 Test Item Value Reference Range Comments FIBRINOGEN LEVEL (BEAKER) (test vxrs=021) 390 mg/dl 225-434 [id number] 06:00:00 Test Item Value Reference Range Comments PARTIAL THROMBOPLASTIN TIME (BEAKER) (test 40.2 seconds 22.5-36.0 uiyo=943) PROTHROMBIN [id number] 05:59:00 Test Item Value Reference Range Comments PROTIME (BEAKER) (test rugr=744) 14.6 seconds 11.7-14.7 INR (BEAKER) (test qgmf=581) 1.2 <=5.9 RECOMMENDED COUMADIN/WARFARIN INR THERAPY RANGESSTANDARD DOSE: 2.0 - 3.0 Includes: PROPHYLAXIS forvenous thrombosis, systemic embolization; TREATMENT for venous thrombosis and/or pulmonary embolus.HIGH RISK: Target INR is 2.5-3.5 for patients with mechanical heart valves.POCT-GLUCOSE [id number] 21:46:00 Test Item Value Reference Range Comments POC-GLUCOSE METER (BEAKER) 153 mg/dL 70-110 TESTED AT [address] (test dfmd=3403) [facility] [address] POCT-GLUCOSE [id number] 18:47:00 Test Item Value Reference Range Comments POC-GLUCOSE METER (BEAKER) 181 mg/dL 70-110 TESTED AT [address] (test sobg=9628) [place] [address] POCT-GLUCOSE [id number] 12:40:00 Test Item Value Reference Range Comments POC-GLUCOSE METER (BEAKER) 178 mg/dL 70-110 TESTED AT [address] (test jzjp=3515) [place] [address] POCT-GLUCOSE [id number] 07:51:00 Test Item Value Reference Range Comments POC-GLUCOSE METER (BEAKER) 166 mg/dL 70-110 TESTED AT [address] (test mjfu=3285) [place] [address] COMPREHENSIVE METABOLIC [id number] 03:26:00 Test Item Value Reference Range Comments TOTAL PROTEIN (BEAKER) 5.2 gm/dL 6.0-8.3 (test urnv=370) ALBUMIN (BEAKER) (test 2.3 g/dL 3.5-5.0 qpwi=1067) ALKALINE PHOSPHATASE 72 U/L 40-150 (BEAKER) (test wtmp=701) BILIRUBIN TOTAL (BEAKER) 2.0 mg/dL 0.2-1.2 (test xeys=620) SODIUM (BEAKER) (test 140 meq/L 136-145 mvmn=603) POTASSIUM (BEAKER) (test 3.3 meq/L 3.5-5.1 ywez=409) CHLORIDE (BEAKER) (test 99 meq/L 98-107 fvat=120) CO2 (BEAKER) (test 29 meq/L 22-29 dqcd=308) BLOOD UREA NITROGEN 35 mg/dL 7-21 (BEAKER) (test afvb=904) CREATININE (BEAKER) (test 3.44 mg/dL 0.57-1.25 fyzj=280) GLUCOSE RANDOM (BEAKER) 151 mg/dL 70-105 (test hayx=419) CALCIUM (BEAKER) (test 8.6 mg/dL 8.4-10.2 wmzx=234) AST (SGOT) (BEAKER) (test 506 U/L 5-34 ykzn=816) ALT (SGPT) (BEAKER) (test 1009 U/L 6-55 vktw=800) EGFR (BEAKER) (test 15 mL/min/1.73 sq m ESTIMATED GFR IS NOT zbin=0317) ACCURATE CREATININE CLEARANCE IN PREDICTING GLOMERULAR FILTRATION RATE. ESTIMATED GFR IS NOT APPLICABLE FOR DIALYSIS PATIENTS. [id number] 03:22:00 Test Item Value Reference Range Comments MAGNESIUM (BEAKER) (test tlsm=706) 1.4 mg/dL 1.6-2.6 HEPATIC FUNCTION [id number] 03:22:00 Test Item Value Reference Range Comments TOTAL PROTEIN (BEAKER) (test luea=306) 5.2 gm/dL 6.0-8.3 ALBUMIN (BEAKER) (test bvza=7175) 2.3 g/dL 3.5-5.0 BILIRUBIN TOTAL (BEAKER) (test mtlk=726) 2.0 mg/dL 0.2-1.2 BILIRUBIN DIRECT (BEAKER) (test naph=085) 1.3 mg/dL 0.1-0.5 ALKALINE PHOSPHATASE (BEAKER) (test rrer=604) 72 U/L 40-150 AST (SGOT) (BEAKER) (test sgzg=732) 506 U/L 5-34 ALT (SGPT) (BEAKER) (test djng=153) 1009 U/L 6-55 [id number] 03:12:00 Test Item Value Reference Range Comments AMMONIA (BEAKER) (test ybgh=619) 29 mol/L 18-72 [id number] 03:10:00 Test Item Value Reference Range Comments PARTIAL THROMBOPLASTIN TIME (BEAKER) (test 42.3 seconds 22.5-36.0 njhc=210) PROTHROMBIN [id number] 03:09:00 Test Item Value Reference Range Comments PROTIME (BEAKER) (test dgiy=540) 16.4 seconds 11.7-14.7 INR (BEAKER) (test gxqn=738) 1.3 <=5.9 RECOMMENDED COUMADIN/WARFARIN INR THERAPY RANGESSTANDARD DOSE: 2.0 - 3.0 Includes: PROPHYLAXIS forvenous thrombosis, systemic embolization; TREATMENT for venous thrombosis and/or pulmonary embolus.HIGH RISK: Target INR is 2.5-3.5 for patients with mechanical heart valves.[id number] 03:09:00 Test Item Value Reference Range Comments FIBRINOGEN LEVEL (BEAKER) (test oapo=854) 413 mg/dl 225-434 CBC W/PLT COUNT & AUTO [id number] 03:09:00 Test Item Value Reference Range Comments WHITE BLOOD CELL COUNT (BEAKER) (test fvve=747) 2.9 K/ L 4.0-10.0 RED BLOOD CELL COUNT (BEAKER) (test lcoo=884) 3.10 M/ L 4.00-5.00 HEMOGLOBIN (BEAKER) (test qfbw=949) 9.5 GM/DL 12.0-15.0 HEMATOCRIT (BEAKER) (test ilbk=253) 29.2 % 36.0-45.0 MEAN CORPUSCULAR VOLUME (BEAKER) (test onqy=015) 94.4 fL 82.0-99.0 MEAN CORPUSCULAR HEMOGLOBIN (BEAKER) (test 30.8 pg 27.0-33.0 uxck=620) MEAN CORPUSCULAR HEMOGLOBIN CONC (BEAKER) (test 32.6 GM/DL 32.0-36.0 vvyr=454) RED CELL DISTRIBUTION WIDTH (BEAKER) (test 15.2 % 10.3-14.2 lkoo=602) PLATELET COUNT (BEAKER) (test eths=432) 118 K/CU MM 150-430 MEAN PLATELET VOLUME (BEAKER) (test ubgj=368) 9.2 fL 6.5-10.5 NUCLEATED RED BLOOD CELLS (BEAKER) (test 0 /100 WBC 0-0 grgg=879) NEUTROPHILS RELATIVE PERCENT (BEAKER) (test 59 % aahw=160) LYMPHOCYTES RELATIVE PERCENT (BEAKER) (test 27 % vlwj=831) MONOCYTES RELATIVE PERCENT (BEAKER) (test 10 % kdfv=008) EOSINOPHILS RELATIVE PERCENT (BEAKER) (test 4 % spxq=401) BASOPHILS RELATIVE PERCENT (BEAKER) (test 1 % rrjs=941) NEUTROPHILS ABSOLUTE COUNT (BEAKER) (test 1.71 K/ L 1.80-8.00 fzmx=600) LYMPHOCYTES ABSOLUTE COUNT (BEAKER) (test 0.78 K/ L 1.48-4.50 jqql=246) MONOCYTES ABSOLUTE COUNT (BEAKER) (test 0.29 K/ L 0.00-1.30 rpqj=053) EOSINOPHILS ABSOLUTE COUNT (BEAKER) (test 0.11 K/ L 0.00-0.50 pwka=675) BASOPHILS ABSOLUTE COUNT (BEAKER) (test 0.02 K/ L 0.00-0.20 yhcb=991) 0.00POCT-GLUCOSE [id number] 22:33:00 Test Item Value Reference Range Comments POC-GLUCOSE METER (BEAKER) 230 mg/dL 70-110 TESTED AT [address] (test szjw=8363) [place] [id number] POCT-GLUCOSE [id number] 18:17:00 Test Item Value Reference Range Comments POC-GLUCOSE METER (BEAKER) 222 mg/dL 70-110 TESTED AT [address] (test ehpl=1776) [place] [address] COMPREHENSIVE METABOLIC [id number] 16:59:00 Test Item Value Reference Range Comments TOTAL PROTEIN (BEAKER) 4.9 gm/dL 6.0-8.3 (test rhir=302) ALBUMIN (BEAKER) (test 2.2 g/dL 3.5-5.0 yixy=6220) ALKALINE PHOSPHATASE 71 U/L 40-150 (BEAKER) (test indl=243) BILIRUBIN TOTAL (BEAKER) 2.2 mg/dL 0.2-1.2 (test nrxa=479) SODIUM (BEAKER) (test 140 meq/L 136-145 uwkp=533) POTASSIUM (BEAKER) (test 3.3 meq/L 3.5-5.1 cllf=929) CHLORIDE (BEAKER) (test 99 meq/L 98-107 sjal=366) CO2 (BEAKER) (test 28 meq/L 22-29 vyvi=731) BLOOD UREA NITROGEN 36 mg/dL 7-21 (BEAKER) (test khes=682) CREATININE (BEAKER) (test 3.57 mg/dL 0.57-1.25 iahr=055) GLUCOSE RANDOM (BEAKER) 199 mg/dL 70-105 (test qmru=766) CALCIUM (BEAKER) (test 8.5 mg/dL 8.4-10.2 qqxg=398) AST (SGOT) (BEAKER) (test 640 U/L 5-34 mkwp=954) ALT (SGPT) (BEAKER) (test 1071 U/L 6-55 dtjo=121) EGFR (BEAKER) (test 15 mL/min/1.73 sq m ESTIMATED GFR IS NOT qeni=9770) ACCURATE CREATININE CLEARANCE IN PREDICTING GLOMERULAR FILTRATION RATE. ESTIMATED GFR IS NOT APPLICABLE FOR DIALYSIS PATIENTS. PERIPHERAL BLOOD SMEAR - PATHOLOGIST [id number] 15:30:00 Test Item Value Reference Range Comments RBC MORPHOLOGY (BEAKER) (test Polychromasia yddq=0755) RBC MORPHOLOGY (BEAKER) (test Anisocytosis ouaa=96985) PERIPHERAL SMR REVIEW Cell counts confirmed (BEAKER) (test pozq=0841) [id number] Josefina Lara M.D. (BEAKER) (test pnoz=5624) (electronic signature) PROTHROMBIN [id number] 15:12:00 Test Item Value Reference Range Comments PROTIME (BEAKER) (test ewns=175) 16.6 seconds 11.7-14.7 INR (BEAKER) (test vyiq=258) 1.4 <=5.9 RECOMMENDED COUMADIN/WARFARIN INR THERAPY RANGESSTANDARD DOSE: 2.0 - 3.0 Includes: PROPHYLAXIS forvenous thrombosis, systemic embolization; TREATMENT for venous thrombosis and/or pulmonary embolus.HIGH RISK: Target INR is 2.5-3.5 for patients with mechanical heart valves.ANTI-NUCLEAR ANTIBODY (IVETTE)2017-01-04 14:32:00 Test Item Value Reference Range Comments ANTI-NUCLEAR ANTIBODY (IVETTE) (BEAKER) (test Negative Negative cuot=308) POCT-GLUCOSE [id number] 12:47:00 Test Item Value Reference Range Comments POC-GLUCOSE METER (BEAKER) 212 mg/dL 70-110 TESTED AT [facility] [address] [facility] (test gchq=7185) [facility] [address] [id number] 12:34:00 Test Item Value Reference Range Comments RPR SCREEN (BitLeap) (test oese=700) Nonreactive Nonreactive CLOSTRIDIUM DIFFICILE TOXIN [id number] 10:12:00 Test Item Value Reference Range Comments CLOSTRIDIUM DIFFICILE TOXIN, PCR ([employer]Leap) (test Not Detected Not Detected vpns=3623) This qualitative real-time polymerase chain reaction assay [...] Value Reference Range Comments FACTOR V ACTIVITY (BitLeap) (test mkai=981) 86.0 % 60.0-150.0 Effective 10/24/2013: Reference Range Change-Adult onlyNew: 60.0-150.0 Previous : 50.0-150.0FACTOR 5 ACTIVITY (BLEEDING RISK)2017-01-04 09:13:00 Test Item Value Reference Range Comments FACTOR V ACTIVITY (BitLeap) (test ttnp=323) 56.0 % 60.0-150.0 Effective 10/24/2013: Reference Range Change-Adult onlyNew: 60.0-150.0 Previous : 50.0-150.0POCT-GLUCOSE [id number] 06:40:00 Test Item Value Reference Range Comments POC-GLUCOSE METER (BitLeap) 167 mg/dL 70-110 TESTED AT [facility] [address] [facility] (test oarc=1634) [facility] [address] COMPREHENSIVE METABOLIC [id number] 04:08:00 Test Item Value Reference Range Comments TOTAL PROTEIN (BitLeap) 4.7 gm/dL 6.0-8.3 (test ycgv=929) ALBUMIN (BEAKER) (test 2.1 g/dL 3.5-5.0 mtha=3158) ALKALINE PHOSPHATASE 71 U/L 40-150 (BEAKER) (test vtgm=807) BILIRUBIN TOTAL (BEAKER) 2.6 mg/dL 0.2-1.2 (test dxhj=755) SODIUM (BEAKER) (test 140 meq/L 136-145 bism=683) POTASSIUM (BEAKER) (test 2.8 meq/L 3.5-5.1 wodh=233) CHLORIDE (BEAKER) (test 95 meq/L 98-107 rbty=857) CO2 (BEAKER) (test 31 meq/L 22-29 tobf=646) BLOOD UREA NITROGEN 39 mg/dL 7-21 (BEAKER) (test zixm=438) CREATININE (BEAKER) (test 4.10 mg/dL 0.57-1.25 cgqq=755) GLUCOSE RANDOM (BEAKER) 155 mg/dL 70-105 (test tnkf=855) CALCIUM (BEAKER) (test 8.2 mg/dL 8.4-10.2 jfre=874) AST (SGOT) (BEAKER) (test 846 U/L 5-34 mmid=551) ALT (SGPT) (BEAKER) (test 1091 U/L 6-55 styn=960) EGFR (BEAKER) (test mL/min/1.73 sq m INSUFFICIENT CLINICAL DATA prdx=9503) TO CALCULATE ESTIMATED GFR. Specimen slightly ictericHEPATIC FUNCTION [id number] 04:06:00 Test Item Value Reference Range Comments TOTAL PROTEIN (BEAKER) (test wttn=921) 4.7 gm/dL 6.0-8.3 ALBUMIN (BEAKER) (test mqir=8174) 2.1 g/dL 3.5-5.0 BILIRUBIN TOTAL (BEAKER) (test qood=661) 2.6 mg/dL 0.2-1.2 BILIRUBIN DIRECT (BEAKER) (test kiqp=470) 1.8 mg/dL 0.1-0.5 ALKALINE PHOSPHATASE (BEAKER) (test kpqw=387) 71 U/L 40-150 AST (SGOT) (BEAKER) (test nvoh=161) 846 U/L 5-34 ALT (SGPT) (BEAKER) (test fhix=452) 1091 U/L 6-55 Specimen slightly [id number] 04:01:00 Test Item Value Reference Range Comments FIBRINOGEN LEVEL (BEAKER) (test egfw=707) 379 mg/dl 225-434 [id number] 04:01:00 Test Item Value Reference Range Comments PARTIAL THROMBOPLASTIN TIME (BEAKER) (test 40.7 seconds 22.5-36.0 rdnf=400) PROTHROMBIN [id number] 04:00:00 Test Item Value Reference Range Comments PROTIME (BEAKER) (test vnda=281) 18.7 seconds 11.7-14.7 INR (BEAKER) (test nkum=173) 1.6 <=5.9 RECOMMENDED COUMADIN/WARFARIN INR THERAPY RANGESSTANDARD DOSE: 2.0 - 3.0 Includes: PROPHYLAXIS forvenous thrombosis, systemic embolization; TREATMENT for venous thrombosis and/or pulmonary embolus.HIGH RISK: Target INR is 2.5-3.5 for patients with mechanical heart valves.CBC W/PLT COUNT & AUTO [id number] 03:56:00 Test Item Value Reference Range Comments WHITE BLOOD CELL COUNT (BEAKER) (test rdle=424) 3.1 K/ L 4.0-10.0 RED BLOOD CELL COUNT (BEAKER) (test fxuz=029) 2.85 M/ L 4.00-5.00 HEMOGLOBIN (BEAKER) (test ajdu=109) 8.8 GM/DL 12.0-15.0 HEMATOCRIT (BEAKER) (test ucwt=179) 26.6 % 36.0-45.0 MEAN CORPUSCULAR VOLUME (BEAKER) (test fuat=251) 93.4 fL 82.0-99.0 MEAN CORPUSCULAR HEMOGLOBIN (BEAKER) (test 30.9 pg 27.0-33.0 dwbd=418) MEAN CORPUSCULAR HEMOGLOBIN CONC (BEAKER) (test 33.0 GM/DL 32.0-36.0 hjae=254) RED CELL DISTRIBUTION WIDTH (BEAKER) (test 14.9 % 10.3-14.2 tzbf=894) PLATELET COUNT (BEAKER) (test aajq=463) 98 K/CU MM 150-430 MEAN PLATELET VOLUME (BEAKER) (test sjsq=149) 9.1 fL 6.5-10.5 NUCLEATED RED BLOOD CELLS (BEAKER) (test 0 /100 WBC 0-0 fqyf=901) NEUTROPHILS RELATIVE PERCENT (BEAKER) (test 55 % evvv=183) LYMPHOCYTES RELATIVE PERCENT (BEAKER) (test 27 % gmqe=540) MONOCYTES RELATIVE PERCENT (BEAKER) (test 12 % ljsx=876) EOSINOPHILS RELATIVE PERCENT (BEAKER) (test 5 % ryde=138) BASOPHILS RELATIVE PERCENT (BEAKER) (test 1 % rzcg=473) NEUTROPHILS ABSOLUTE COUNT (BEAKER) (test 1.71 K/ L 1.80-8.00 ncaj=028) LYMPHOCYTES ABSOLUTE COUNT (BEAKER) (test 0.83 K/ L 1.48-4.50 tvmw=917) MONOCYTES ABSOLUTE COUNT (BEAKER) (test hzyv=677) 0.38 K/ L 0.00-1.30 EOSINOPHILS ABSOLUTE COUNT (BEAKER) (test 0.14 K/ L 0.00-0.50 bhym=203) BASOPHILS ABSOLUTE COUNT (BEAKER) (test vfqj=995) 0.02 K/ L 0.00-0.20 0.00POCT-GLUCOSE [id number] 00:19:00 Test Item Value Reference Range Comments POC-GLUCOSE METER (BEAKER) 159 mg/dL 70-110 TESTED AT [address] (test ucdd=4309) [place] [id number] POCT-GLUCOSE [id number] 18:56:00 Test Item Value Reference Range Comments POC-GLUCOSE METER (BEAKER) 192 mg/dL 70-110 TESTED AT [address] (test vwij=5014) [place] [id number] COMPREHENSIVE METABOLIC [id number] 16:55:00 Test Item Value Reference Range Comments TOTAL PROTEIN (BEAKER) 4.5 gm/dL 6.0-8.3 (test xorq=027) ALBUMIN (BEAKER) (test 2.0 g/dL 3.5-5.0 fkpa=2353) ALKALINE PHOSPHATASE 74 U/L 40-150 (BEAKER) (test jbjz=417) BILIRUBIN TOTAL (BEAKER) 2.9 mg/dL 0.2-1.2 (test jfzu=110) SODIUM (BEAKER) (test 142 meq/L 136-145 piou=971) POTASSIUM (BEAKER) (test 3.0 meq/L 3.5-5.1 dtpz=157) CHLORIDE (BEAKER) (test 95 meq/L 98-107 qals=799) CO2 (BEAKER) (test 33 meq/L 22-29 ccbr=019) BLOOD UREA NITROGEN 45 mg/dL 7-21 (BEAKER) (test yqyt=156) CREATININE (BEAKER) (test 4.87 mg/dL 0.57-1.25 indy=963) GLUCOSE RANDOM (BEAKER) 177 mg/dL 70-105 (test mccs=837) CALCIUM (BEAKER) (test 8.4 mg/dL 8.4-10.2 vjte=842) AST (SGOT) (BEAKER) (test 1283 U/L 5-34 shec=906) ALT (SGPT) (BEAKER) (test 1314 U/L 6-55 jehv=884) EGFR (BEAKER) (test mL/min/1.73 sq m INSUFFICIENT CLINICAL DATA fnzf=1500) TO CALCULATE ESTIMATED GFR. Specimen slightly ictericPROTHROMBIN [id number] 16:37:00 Test Item Value Reference Range Comments PROTIME (BEAKER) (test ftdq=315) 20.9 seconds 11.7-14.7 INR (BEAKER) (test wwxy=488) 1.8 <=5.9 RECOMMENDED COUMADIN/WARFARIN INR THERAPY RANGESSTANDARD DOSE: 2.0 - 3.0 Includes: PROPHYLAXIS forvenous thrombosis, systemic embolization; TREATMENT for venous thrombosis and/or pulmonary embolus.HIGH RISK: Target INR is 2.5-3.5 for patients with mechanical heart valves.HEPATITIS B SURFACE [id number] 14:05:00 Test Item Value Reference Range Comments HEPATITIS B SURFACE ANTIBODY (BEAKER) (test < mIU/mL <8.0 rgzz=163) HEPATITIS B CORE ANTIBODY, [id number] 13:43:00 Test Item Value Reference Range Comments HEPATITIS B CORE TOTAL ANTIBODY (BEAKER) (test Nonreactive Nonreactive qnno=557) BLOOD GAS, [id number] 13:35:00 Test Item Value Reference Range Comments PH ARTERIAL (BEAKER) (test qugt=167) 7.44 7.35-7.45 PCO2 ARTERIAL (BEAKER) (test vkwe=319) 55 mmHg 35-45 PO2 ARTERIAL (BEAKER) (test glwm=379) 99 mmHg 80-90 O2 SATURATION ARTERIAL (BEAKER) (test laqz=781) 97.4 % 96.0-97.0 HCO3 ARTERIAL (BEAKER) (test nker=944) 36 mmol/L 21-29 BASE EXCESS ARTERIAL (BEAKER) (test ghlw=685) 10.3 mmol/L -2.0-3.0 PATIENT TEMPERATURE (BEAKER) (test yxza=5438) 37.5 C FIO2 (BEAKER) (test ohqg=6291) 28.0 % URINALYSIS W/ [id number] 13:16:00 Test Item Value Reference Range Comments COLOR (BEAKER) (test qvtj=720) Yellow CLARITY (BEAKER) (test wqmk=338) Clear SPECIFIC GRAVITY UA (BEAKER) (test niup=405) 1.013 1.001-1.035 PH UA (BEAKER) (test tolv=292) 6.0 5.0-8.0 PROTEIN UA (BEAKER) (test teyv=659) 300 mg/dL Negative GLUCOSE UA (BEAKER) (test hgov=610) 30 mg/dL Negative KETONES UA (BEAKER) (test rhyu=739) Trace Negative BILIRUBIN UA (BEAKER) (test xben=343) Positive Negative BLOOD UA (BEAKER) (test gwjb=635) Moderate Negative NITRITE UA (BEAKER) (test fxuj=909) Negative Negative LEUKOCYTE ESTERASE UA (BEAKER) (test slps=283) Moderate Negative UROBILINOGEN UA (BEAKER) (test czdt=098) 2.0 mg/dL 0.2-1.0 RBC UA (BEAKER) (test fnwi=757) 2 /HPF WBC UA (BEAKER) (test wgzf=303) 41 /HPF HYALINE CASTS (BEAKER) (test wbfc=707) 10 /LPF AMORPHOUS CRYSTALS (BEAKER) (test ymqg=8421) Rare SOURCE(BEAKER) (test cbki=7659) Urine, [place] VITAMIN D, [id number] 13:14:00 Test Item Value Reference Range Comments VITAMIN D 25-OH (BEAKER) (test qfbd=6956) < ng/mL 13.0-47.8 ALPHA FETOPROTEIN (AFP), TUMOR [id number] 13:06:00 Test Item Value Reference Range Comments ALPHA-FETOPROTEIN (BEAKER) (test btyb=1596) < ng/mL <10.0 Effective 05/08/2014: Reference Range ChangeNew: <10.0 Previous: 0.0- 8.0HEMOGLOBIN [id number] 13:05:00 Test Item Value Reference Range Comments HEMOGLOBIN A1C (BEAKER) (test zrfh=987) 7.6 % 4.3-6.1 CARCINOEMBRYONIC ANTIGEN (CEA)2017-01-03 12:59:00 Test Item Value Reference Range Comments CARCINOEMBRYONIC ANTIGEN (BEAKER) (test pjcw=335) 2.0 ng/mL 0.0-5.0 [id number] 12:59:00 Test Item Value Reference Range Comments FERRITIN (BEAKER) (test mfrk=571) 1841 ng/mL 5-275 Effective 05/08/2014: Reference Range ChangeNew: Male 5-275 Previous: Male 22-322 Female 5-275 Female [id number] 12:58:00 Test Item Value Reference Range Comments T4 TOTAL (BEAKER) (test njty=834) 4.5 ug/dL 4.9-11.7 [id number] 12:58:00 Test Item Value Reference Range Comments THYROID STIMULATING HORMONE (BEAKER) (test 1.79 uIU/mL 0.35-4.94 asld=186) [id number] 12:58:00 Test Item Value Reference Range Comments T3 TOTAL (BEAKER) (test kkuy=937) 34 ng/dL 48-159 Effective 05/08/2014: Reference Range ChangeNew: 48-159 Previous: 60- 181CALCIUM, [id number] 12:47:00 Test Item Value Reference Range Comments CALCIUM IONIZED (BEAKER) (test jxxq=775) 1.05 mmol/L 1.12-1.27 PH, BLOOD (BEAKER) (test obck=5115) 7.43 [id number] 12:42:00 Test Item Value Reference Range Comments TRANSFERRIN (BEAKER) (test jxld=798) 128 mg/dL 174-382 Specimen slightly ictericIRON, TIBC, % SAT. (WITHOUT FERRITIN)2017-01-03 12:42: 00 Test Item Value Reference Range Comments IRON (BEAKER) (test emxh=502) 59 ug/dL 40-160 TOTAL IRON BINDING CAPACITY (BEAKER) (test 160 ug/dL 250-450 lxtd=721) IRON % SATURATION (2) (BEAKER) (test gkiv=2236) 37 % 20-55 URIC [id number] 12:40:00 Test Item Value Reference Range Comments URIC ACID (BEAKER) (test kpcl=892) 16.0 mg/dL 2.6-7.2 Specimen slightly ictericLIPID [id number] 12:40:00 Test Item Value Reference Range Comments TRIGLYCERIDES (BEAKER) (test jovp=103) 134 mg/dL CHOLESTEROL (BEAKER) (test ogzo=758) 120 mg/dL HDL CHOLESTEROL (BEAKER) (test eurv=908) 7 mg/dL LDL CHOLESTEROL CALCULATED (BEAKER) (test 86 mg/dL sekz=692) Triglyceride Reference Range: Low Risk <150 Borderline 150- 199 High Risk 200-499 Very High Risk >=500Cholesterol Reference Range: Low Risk <200 Borderline 200-239 High Risk > 240HDL Cholesterol Reference Range: Low Risk >=60 High Risk <40LDL Cholesterol Reference Range: Optimal <100 Near Optimal 100-129 Borderline 130-159 High 160-189 Very High >=190 Specimen slightly ictericBILIRUBIN, [id number] 12:40:00 Test Item Value Reference Range Comments BILIRUBIN DIRECT (BEAKER) (test cyuu=111) 2.4 mg/dL 0.1-0.5 GAMMA GLUTAMYL TRANSFERASE (GGT)2017-01-03 12:40:00 Test Item Value Reference Range Comments GAMMA GLUTAMYL TRANSFERASE (BEAKER) (test nkkb=085) 53 U/L 9-64 Specimen slightly [id number] 12:39:00 Test Item Value Reference Range Comments ETHANOL (BEAKER) (test jjrk=644) < mg/dL <=10 SCREEN, [id number] 12:36:00 Test Item Value Reference Range Comments TEST URINE (BEAKER) (test zisx=666) Negative POCT-GLUCOSE [id number] 12:34:00 Test Item Value Reference Range Comments POC-GLUCOSE METER (BEAKER) 189 mg/dL 70-110 TESTED AT [address] (test hzuy=5765) [facility] [address] HIV-1 ANTIGEN WITH HIV-1/2 [id number] 11:58:00 Test Item Value Reference Range Comments HIV-1 ANTIGEN WITH HIV 1\T\2 ANTIBODY (2) Nonreactive Nonreactive (BEAKER) (test dxcz=5228) TROPONIN [id number] 09:44:00 Test Item Value Reference Range Comments TROPONIN I (BEAKER) (test xfnw=778) 0.34 ng/mL 0.00-0.03 Effective 05/08/2014: Reference Range [...] and persistent tachyarrhythmia.CREATINE KINASE (CK), TOTAL AND [id number] 09:43:00 Test Item Value Reference Range Comments CREATINE KINASE TOTAL (BEAKER) (test zoon=200) 301 U/L 29-200 CREATINE KINASE-MB (BEAKER) (test hqyv=120) 5.6 ng/mL 0.0-6.6 CREATINE KINASE-MB INDEX (BEAKER) (test vmic=099) 1.9 % Effective 05/08/2014: CK-MB Reference Range ChangeNew: 0.0-6.6 Previous: 0.0- 4.9CK-MB Reference Range:<6.7 Normal6.7-10.0 Borderline>10.0 AbnormalACETAMINOPHEN [id number] 08:31:00 Test Item Value Reference Range Comments ACETAMINOPHEN LEVEL (BEAKER) (test rcqs=268) < ug/mL 10.0-30.0 TROPONIN [id number] 05:53:00 Test Item Value Reference Range Comments TROPONIN I (BEAKER) (test xvqy=863) 0.33 ng/mL 0.00-0.03 Effective 05/08/2014: Reference Range [...] acute neurological disease, and persistent tachyarrhythmia.BASIC METABOLIC [id number] 05:53:00 Test Item Value Reference Range Comments SODIUM (BEAKER) (test 144 meq/L 136-145 dqek=741) POTASSIUM (BEAKER) (test 2.8 meq/L 3.5-5.1 gluz=852) CHLORIDE (BEAKER) (test 95 meq/L 98-107 dhee=090) CO2 (BEAKER) (test 35 meq/L 22-29 ggow=830) BLOOD UREA NITROGEN 49 mg/dL 7-21 (BEAKER) (test idba=316) CREATININE (BEAKER) (test 5.61 mg/dL 0.57-1.25 zonm=854) GLUCOSE RANDOM (BEAKER) 138 mg/dL 70-105 (test alkw=364) CALCIUM (BEAKER) (test 8.2 mg/dL 8.4-10.2 lpkp=192) EGFR (BEAKER) (test mL/min/1.73 sq m INSUFFICIENT CLINICAL DATA vbzv=9030) TO CALCULATE ESTIMATED GFR. Specimen slightly [id number] 05:52:00 Test Item Value Reference Range Comments PHOSPHORUS (BEAKER) (test txbk=997) 5.7 mg/dL 2.3-4.7 HEPATIC FUNCTION [id number] 05:52:00 Test Item Value Reference Range Comments TOTAL PROTEIN (BEAKER) (test yuzg=153) 5.2 gm/dL 6.0-8.3 ALBUMIN (BEAKER) (test ywen=6303) 2.3 g/dL 3.5-5.0 BILIRUBIN TOTAL (BEAKER) (test wigv=764) 3.5 mg/dL 0.2-1.2 BILIRUBIN DIRECT (BEAKER) (test smqh=329) 2.6 mg/dL 0.1-0.5 ALKALINE PHOSPHATASE (BEAKER) (test rpzo=610) 81 U/L 40-150 AST (SGOT) (BEAKER) (test fzlf=043) 2190 U/L 5-34 ALT (SGPT) (BEAKER) (test ybcl=429) 1782 U/L 6-55 Specimen slightly ictericCREATINE KINASE (CK), TOTAL AND [id number] 05:52:00 Test Item Value Reference Range Comments CREATINE KINASE TOTAL (BEAKER) (test nlpq=761) 341 U/L 29-200 CREATINE KINASE-MB (BEAKER) (test hajf=009) 5.4 ng/mL 0.0-6.6 CREATINE KINASE-MB INDEX (BEAKER) (test akft=496) 1.6 % Effective 05/08/2014: CK-MB Reference Range ChangeNew: 0.0-6.6 Previous: 0.0- 4.9CK-MB Reference Range:<6.7 Normal6.7-10.0 Borderline>10.0 AbnormalCBC W/PLT COUNT & AUTO [id number] 05:48:00 Test Item Value Reference Range Comments WHITE BLOOD CELL COUNT (BEAKER) (test ksxj=116) 4.1 K/ L 4.0-10.0 RED BLOOD CELL COUNT (BEAKER) (test hopo=112) 3.29 M/ L 4.00-5.00 HEMOGLOBIN (BEAKER) (test znud=363) 10.0 GM/DL 12.0-15.0 HEMATOCRIT (BEAKER) (test etrk=698) 30.7 % 36.0-45.0 MEAN CORPUSCULAR VOLUME (BEAKER) (test qhvh=317) 93.5 fL 82.0-99.0 MEAN CORPUSCULAR HEMOGLOBIN (BEAKER) (test 30.5 pg 27.0-33.0 fzht=954) MEAN CORPUSCULAR HEMOGLOBIN CONC (BEAKER) (test 32.6 GM/DL 32.0-36.0 oozh=247) RED CELL DISTRIBUTION WIDTH (BEAKER) (test 15.0 % 10.3-14.2 hspi=572) PLATELET COUNT (BEAKER) (test ijec=106) 106 K/CU MM 150-430 MEAN PLATELET VOLUME (BEAKER) (test icpy=938) 9.6 fL 6.5-10.5 NUCLEATED RED BLOOD CELLS (BEAKER) (test 0 /100 WBC 0-0 fomk=301) NEUTROPHILS RELATIVE PERCENT (BEAKER) (test 66 % wdmz=827) LYMPHOCYTES RELATIVE PERCENT (BEAKER) (test 24 % voxk=285) MONOCYTES RELATIVE PERCENT (BEAKER) (test 6 % imyw=244) EOSINOPHILS RELATIVE PERCENT (BEAKER) (test 3 % runk=739) BASOPHILS RELATIVE PERCENT (BEAKER) (test 0 % vyhy=150) NEUTROPHILS ABSOLUTE COUNT (BEAKER) (test 2.74 K/ L 1.80-8.00 fkwo=802) LYMPHOCYTES ABSOLUTE COUNT (BEAKER) (test 1.00 K/ L 1.48-4.50 mdmf=418) MONOCYTES ABSOLUTE COUNT (BEAKER) (test 0.26 K/ L 0.00-1.30 nulh=774) EOSINOPHILS ABSOLUTE COUNT (BEAKER) (test 0.13 K/ L 0.00-0.50 vjpt=979) BASOPHILS ABSOLUTE COUNT (BEAKER) (test 0.01 K/ L 0.00-0.20 tsza=881) [id number] 05:09:00 Test Item Value Reference Range Comments FIBRINOGEN LEVEL (BEAKER) (test vqxc=813) 427 mg/dl 225-434 [id number] 05:09:00 Test Item Value Reference Range Comments PARTIAL THROMBOPLASTIN TIME (BEAKER) (test 36.2 seconds 22.5-36.0 ihdu=254) PROTHROMBIN TIME/[id number] 05:08:00 Test Item Value Reference Range Comments PROTIME (BEAKER) (test uikl=065) 22.8 seconds 11.7-14.7 INR (BEAKER) (test oobw=847) 2.0 <=5.9 RECOMMENDED COUMADIN/WARFARIN INR THERAPY RANGESSTANDARD DOSE: 2.0 - 3.0 Includes: PROPHYLAXIS forvenous thrombosis, systemic embolization; TREATMENT for venous thrombosis and/or pulmonary embolus.HIGH RISK: Target INR is 2.5-3.5 for patients with mechanical heart valves.HEPATITIS PANEL, [id number] 03:40 :00 Test Item Value Reference Range Comments HEPATITIS A IGM ANTIBODY (BEAKER) (test Nonreactive Nonreactive hudo=300) HEPATITIS B CORE IGM ANTIBODY (BEAKER) (test Nonreactive Nonreactive bfai=299) HEPATITIS C ANTIBODY (BEAKER) (test paoz=181) Nonreactive Nonreactive HEPATITIS B SURFACE ANTIGEN (2) (BEAKER) (test Nonreactive Nonreactive kfgi=4220) CREATININE, RANDOM [id number] 03:18:00 Test Item Value Reference Range Comments CREATININE URINE (BEAKER) (test lcvj=275) 118.7 mg/dL Reference Range: No NormalsSODIUM, RANDOM [id number] 03:18:00 Test Item Value Reference Range Comments SODIUM URINE (BEAKER) (test smfl=020) 60 meq/L Reference Range: No NormalsUREA NITROGEN, RANDOM [id number] 03:18:00 Test Item Value Reference Range Comments UREA NITROGEN URINE (BEAKER) (test fzpt=349) 303 mg/dL Reference Range: No [id number] 03:07:00 Test Item Value Reference Range Comments AMMONIA (BEAKER) (test bkzd=916) 48 mol/L 18-72 [id number] 02:57:00 Test Item Value Reference Range Comments D-DIMER QUANTITATIVE (BEAKER) (test bzwd=946) 18.03 MG/L FEU <0.50 Intended Use: The [...] is within 95-100% range.URINALYSIS W/ REFLEX URINE [id number] 02:53:00 Test Item Value Reference Range Comments COLOR (BEAKER) (test txip=581) Yellow CLARITY (BEAKER) (test jizl=012) Hazy SPECIFIC GRAVITY UA (BEAKER) (test rptx=113) 1.012 1.001-1.035 PH UA (BEAKER) (test pybj=821) 6.5 5.0-8.0 PROTEIN UA (BEAKER) (test loma=728) 300 mg/dL Negative GLUCOSE UA (BEAKER) (test yfzx=062) Negative Negative KETONES UA (BEAKER) (test slnr=428) Negative Negative BILIRUBIN UA (BEAKER) (test dsdv=519) Positive Negative BLOOD UA (BEAKER) (test lpzg=296) Moderate Negative NITRITE UA (BEAKER) (test dwij=194) Negative Negative LEUKOCYTE ESTERASE UA (BEAKER) (test mxmz=641) Large Negative UROBILINOGEN UA (BEAKER) (test nloh=025) 3.0 mg/dL 0.2-1.0 RBC UA (BEAKER) (test ashp=874) 4 /HPF WBC UA (BEAKER) (test grap=948) > /HPF BACTERIA (BEAKER) (test myjb=971) Occasional MUCUS (BEAKER) (test wqwj=7417) Rare SQUAMOUS EPITHELIAL (BEAKER) (test xvmk=310) 19 /HPF HYALINE CASTS (BEAKER) (test ywjz=436) 13 /LPF SOURCE(BEAKER) (test kxnn=0224) [id number] 02:49:00 Test Item Value Reference Range Comments PARTIAL THROMBOPLASTIN TIME (BEAKER) (test 39.4 seconds 22.5-36.0 kvdg=926) PROTHROMBIN TIME/[id number] 02:48:00 Test Item Value Reference Range Comments PROTIME (BEAKER) (test wqdk=325) 22.0 seconds 11.7-14.7 INR (BEAKER) (test llgv=588) 1.9 <=5.9 RECOMMENDED COUMADIN/WARFARIN INR THERAPY RANGESSTANDARD DOSE: 2.0 - 3.0 Includes: PROPHYLAXIS forvenous thrombosis, systemic embolization; TREATMENT for venous thrombosis and/or pulmonary embolus.HIGH RISK: Target INR is 2.5-3.5 for patients with mechanical heart valves.[id number] 02:48:00 Test Item Value Reference Range Comments FIBRINOGEN LEVEL (BEAKER) (test dnze=655) 421 mg/dl 225-434 BLOOD GAS, [id number] 02:43:00 Test Item Value Reference Range Comments PH VENOUS (BEAKER) (test wfrg=231) 7.46 7.32-7.42 PCO2 VENOUS (BEAKER) (test yvof=126) 53 mmHg 41-51 PO2 VENOUS (BEAKER) (test ralg=658) 83 mmHg 25-40 O2 SATURATION VENOUS (BEAKER) (test zmoa=861) 96.5 % 40.0-70.0 HCO3 VENOUS (BEAKER) (test mokd=750) 37 mmol/L 21-29 BASE EXCESS VENOUS (BEAKER) (test hnoq=539) 11.7 mmol/L -2.0-3.0 PATIENT TEMPERATURE (BEAKER) (test suqe=6265) 37.0 C FIO2 (BEAKER) (test goov=4274) 21.0 % CBC W/PLT COUNT & AUTO [id number] 02:43:00 Test Item Value Reference Range Comments WHITE BLOOD CELL COUNT (BEAKER) (test tqnf=622) 4.4 K/ L 4.0-10.0 RED BLOOD CELL COUNT (BEAKER) (test iliv=229) 3.13 M/ L 4.00-5.00 HEMOGLOBIN (BEAKER) (test yvqn=284) 9.8 GM/DL 12.0-15.0 HEMATOCRIT (BEAKER) (test mmry=030) 29.0 % 36.0-45.0 MEAN CORPUSCULAR VOLUME (BEAKER) (test yxst=210) 92.9 fL 82.0-99.0 MEAN CORPUSCULAR HEMOGLOBIN (BEAKER) (test 31.3 pg 27.0-33.0 kodq=430) MEAN CORPUSCULAR HEMOGLOBIN CONC (BEAKER) (test 33.6 GM/DL 32.0-36.0 gigp=400) RED CELL DISTRIBUTION WIDTH (BEAKER) (test 15.3 % 10.3-14.2 orlb=332) PLATELET COUNT (BEAKER) (test jcmq=799) 113 K/CU MM 150-430 MEAN PLATELET VOLUME (BEAKER) (test cgvh=740) 9.8 fL 6.5-10.5 NUCLEATED RED BLOOD CELLS (BEAKER) (test 0 /100 WBC 0-0 pfdr=256) NEUTROPHILS RELATIVE PERCENT (BEAKER) (test 61 % kmoi=046) LYMPHOCYTES RELATIVE PERCENT (BEAKER) (test 23 % ipbf=748) MONOCYTES RELATIVE PERCENT (BEAKER) (test 11 % exai=788) EOSINOPHILS RELATIVE PERCENT (BEAKER) (test 4 % seku=471) BASOPHILS RELATIVE PERCENT (BEAKER) (test 1 % bpyh=059) NEUTROPHILS ABSOLUTE COUNT (BEAKER) (test 2.65 K/ L 1.80-8.00 thyh=101) LYMPHOCYTES ABSOLUTE COUNT (BEAKER) (test 1.01 K/ L 1.48-4.50 khdw=670) MONOCYTES ABSOLUTE COUNT (BEAKER) (test 0.48 K/ L 0.00-1.30 knjz=059) EOSINOPHILS ABSOLUTE COUNT (BEAKER) (test 0.19 K/ L 0.00-0.50 gfap=213) BASOPHILS ABSOLUTE COUNT (BEAKER) (test 0.05 K/ L 0.00-0.20 uwvz=989) 0.00LACTIC ACID, VENOUS, WHOLE [id number] 02:35:00 Test Item Value Reference Range Comments LACTATE BLOOD VENOUS (2) (BEAKER) (test 0.8 mmol/L 0.5-2.2 vrce=7869) Effective 10/23/2015: Units/Reference Range ChangeNew: 0.5-2.2 mmol/L Previous: 5 -20 mg/dLSpecimen slightly icteric
[2018-06-18 14:27] LABS: Absolute Lymphocytes (CBC) 1.9 K/uL (0.7-4.9); Absolute Monocytes 0.5 K/uL (0.1-1.3); Absolute Neutrophil 3.3 K/uL (1.8-8.0); Eosinophils % 3.7 % (0-4.4); Hematocrit 31.6 % (36.0-45.0); Lymphocytes % 32.4 % (15.3-44.8); MPV 10.5 fL (7.6-11.3); Monocytes % 8.1 % (3.3-12.3)
[2018-06-18 14:37] LABS: Potassium 5.1 mmol/L (3.5-5.1)
[2018-06-18 14:38] LABS: Albumin 3.7 g/dL (3.4-5.0); Bilirubin Direct 0.1 mg/dL (0-0.2); Bilirubin Total 0.4 mg/dL (0.2-1.0); Protein, Total 7.6 g/dL (6.4-8.2)
[2018-06-18 14:42] LABS: Blood Morphology Comment NOT SEEN (NOT SEEN); Platelet Estimate DECR; Urine White Blood Cell Casts OK
--- NOTE | 2018-06-18 15:15 | EDPHYS ---
Physician Documentation [facility] Name: Cathi Zaldivar Age: 37 yrs Sex: Female : 1980 Arrival Date: 06/18/2018 Time: 11:20 Bed 15 Private MD: Partha Abraham ED Physician Jose De Jesus Graf HPI: 06/18 13:07 This 37 yrs old Female presents to ER via Wheelchair with complaints of Blood ma2 Pressure Problem - LOW. 13:07 The patient presents to the emergency department with diarrhea. Onset: The ma2 symptoms/episode began/occurred gradually, 2 day(s) ago. Associated signs and symptoms: Pertinent negatives: abdominal pain, anorexia, dysuria, fever, nausea, vomiting. Severity of symptoms: At their worst the symptoms were moderate in the emergency department the symptoms are unchanged. The patient has experienced similar episodes in the past. Historical: - Allergies: 11:42 ambien; sv 11:42 Codeine; sv 11:42 Lisinopril; sv 11:42 Nitrofurantoin Macrocrystal; sv 11:42 PENICILLINS; sv 11:42 Prolixin; sv 11:42 Demerol; sv - PMHx: 11:42 chronic kidney disease; cyclic vomiting syndrome; Diabetes - NIDDM; ENCEPHALOPATHY; sv Gastroparesis; liver failure; PERIPHERAL NEUROPATHY; HD-TTHSat; - PSHx: 11:42 right arm fistula; sv - Immunization history:: Adult Immunizations up to date. - Social history:: Patient/guardian denies using alcohol, street drugs, The patient lives with family. - Family history:: not pertinent. - Ebola Screening: : Patient denies travel to an Ebola-affected area in the 21 days before illness onset. ROS: 13:07 Constitutional: Negative for fever, chills, and weight loss. ma2 13:07 Abdomen/GI: Positive for diarrhea, Negative for nausea, vomiting, abdominal cramps, abdominal distension, black/tarry stool. 13:07 All other systems are negative. Exam: 13:07 Constitutional: This is a well developed, well nourished patient who is awake, alert, ma2 and in no acute distress. Chest/axilla: Normal chest wall appearance and motion. Nontender with no deformity. No lesions are appreciated. Cardiovascular: Regular rate and rhythm with a normal S1 and S2. No gallops, murmurs, or rubs. Normal PMI, no JVD. No pulse deficits. Respiratory: Lungs have equal breath sounds bilaterally, clear to auscultation and percussion. No rales, rhonchi or wheezes noted. No increased work of breathing, no retractions or nasal flaring. Abdomen/GI: Soft, non-tender, with normal bowel sounds. No distension or tympany. No guarding or rebound. No evidence of tenderness throughout. Vital Signs: 11:43 BP 94 / 55; Pulse 79; Resp 16; Temp 97; Pulse Ox 97% ; Weight 76.2 kg (R); Height 5 ft. sv 3 in. (160.02 cm); Pain 0/10; 14:05 BP 114 / 65; Pulse 75; Resp 14; Pulse Ox 98% on R/A; Pain 0/10; ss 11:43 Body Mass Index 29.76 (76.20 kg, 160.02 cm) sv MDM: 12:36 Patient medically screened. ma2 13:07 Differential diagnosis: gastritis, gastroenteritis, electrolyte abnormality dehydration.ma2 15:13 Data reviewed: vital signs, nurses notes, EMS record. Counseling: I had a detailed ma2 discussion with the patient and/or guardian regarding: the historical points, exam findings, and any diagnostic results supporting the discharge/admit diagnosis, the presence of at least one elevated blood pressure reading (>120/80) during this emergency department visit, lab results, the need for outpatient follow up. Response to treatment: There is no appreciated change of the patient's symptoms at this time. 06/18 14:13 Order name: Basic Metabolic Panel; Complete Time: 14:56 EDMS 06/18 12:46 Order name: Labs collected and sent; Complete Time: 14:05 ma2 06/18 14:13 Order name: Liver (Hepatic) Function; Complete Time: 14:56 EDMS 06/18 14:13 Order name: Lipase; Complete Time: 14:56 EDMS 06/18 14:13 Order name: Creatinine (Radiology Only); Complete Time: 14:56 EDMS 06/18 14:13 Order name: CBC with Automated Diff; Complete Time: 14:56 EDMS 06/18 14:43 Order name: CBC Smear Scan; Complete Time: 14:56 EDMS Administered Medications: No medications were administered Disposition: 06/18/18 15:14 Discharged to Home. Impression: Diarrhea, unspecified. - Condition is Stable. - Discharge Instructions: Viral Gastroenteritis, Adult. - Medication Reconciliation Form, Thank You Letter, Antibiotic Education, Prescription Opioid Use form. - Follow up: Private Physician; When: Tomorrow; Reason: If symptoms return, Continuance of care. Signatures: Dispatcher [employer] EDJocelyne Jones RN RN aj1 Janie Ricketts RN RN Jose De Jesus Graf MD MD ma2 Corrections: (The following items were deleted from the chart) 15:39 15:14 06/18/2018 15:14 Discharged to Home. Impression: Diarrhea, unspecified. Condition aj1 is Stable. Forms are Medication Reconciliation Form, Thank You Letter, Antibiotic Education, Prescription Opioid Use. Follow up: Private Physician; When: Tomorrow; Reason: If symptoms return, Continuance of care. ma2
--- NOTE | 2018-06-18 15:15 | ER ---
Nurse's Notes [facility] Name: Cathi Zaldivar Age: 37 yrs Sex: Female : 1980 Arrival Date: 06/18/2018 Time: 11:20 Bed 15 Private MD: Partha Abraham Diagnosis: Diarrhea, unspecified Presentation: 06/18 11:40 Presenting complaint: Patient states: hypotension 98/60 reported by HD nurse, wouldn't sv do treatment. c/o lightheadedness, diarrhea, dizziness for a couple of days. Transition of care: patient was not received from another setting of care. Onset of symptoms was June 18, 2018. Care prior to arrival: None. 11:40 Method Of Arrival: Wheelchair sv 11:40 Acuity: JESSICA 3 sv 15:23 Risk Assessment: Do you want to hurt yourself or someone else? Patient reports no aj1 desire to harm self or others. Initial Sepsis Screen: Does the patient meet any 2 criteria? No. Patient's initial sepsis screen is negative. Does the patient have a suspected source of infection? No. Patient's initial sepsis screen is negative. Triage Assessment: 11:44 General: Appears in no apparent distress. comfortable, Behavior is calm, cooperative, sv appropriate for age. Pain: Denies pain. Neuro: Level of Consciousness is awake, alert, obeys commands, Oriented to person, place, time, situation, Reports dizziness. Respiratory: Respiratory effort is even, unlabored, Respiratory pattern is regular, symmetrical. GI: Reports diarrhea. Historical: - Allergies: 11:42 ambien; sv 11:42 Codeine; sv 11:42 Lisinopril; sv 11:42 Nitrofurantoin Macrocrystal; sv 11:42 PENICILLINS; sv 11:42 Prolixin; sv 11:42 Demerol; sv - PMHx: 11:42 chronic kidney disease; cyclic vomiting syndrome; Diabetes - NIDDM; ENCEPHALOPATHY; sv Gastroparesis; liver failure; PERIPHERAL NEUROPATHY; HD-TTHSat; - PSHx: 11:42 right arm fistula; sv - Immunization history:: Adult Immunizations up to date. - Social history:: Patient/guardian denies using alcohol, street drugs, The patient lives with family. - Family history:: not pertinent. - Ebola Screening: : Patient denies travel to an Ebola-affected area in the 21 days before illness onset. Screenin:00 Abuse screen: Denies threats or abuse. Denies injuries from another. Nutritional aj1 screening: No deficits noted. Tuberculosis screening: No symptoms or risk factors identified. 15:23 Fall Risk None identified. aj1 Assessment: 13:00 General: Appears in no apparent distress. comfortable, Behavior is calm, cooperative, aj1 appropriate for age. Pain: Denies pain. Neuro: Level of Consciousness is awake, alert, obeys commands. Neuro: Oriented to person, place, time, situation, Moves all extremities. Full function Speech is normal, Facial symmetry appears normal, Reports dizziness. Cardiovascular: Patient's skin is warm and dry. Respiratory: Airway is patent Respiratory effort is even, unlabored, Respiratory pattern is regular, symmetrical. GI: Abdomen is non-distended, Reports diarrhea, Patient currently denies vomiting. : No signs and/or symptoms were reported regarding the genitourinary system. EENT: No signs and/or symptoms were reported regarding the EENT system. Derm: No signs and/or symptoms reported regarding the dermatologic system. Skin is pink, warm \T\ dry. normal. Musculoskeletal: No signs and/or symptoms reported regarding the musculoskeletal system. Circulation, motion, and sensation intact. 14:00 Reassessment: Patient appears in no apparent distress at this time. No changes from aj1 previously documented assessment. Patient and/or family updated on plan of care and expected duration. Pain level reassessed. Patient is alert, oriented x 3, equal unlabored respirations, skin warm/dry/pink. 15:00 Reassessment: Patient appears in no apparent distress at this time. No changes from aj1 previously documented assessment. Patient and/or family updated on plan of care and expected duration. Pain level reassessed. Patient is alert, oriented x 3, equal unlabored respirations, skin warm/dry/pink. Vital Signs: 11:43 BP 94 / 55; Pulse 79; Resp 16; Temp 97; Pulse Ox 97% ; Weight 76.2 kg (R); Height 5 ft. sv 3 in. (160.02 cm); Pain 0/10; 14:05 BP 114 / 65; Pulse 75; Resp 14; Pulse Ox 98% on R/A; Pain 0/10; ss 11:43 Body Mass Index 29.76 (76.20 kg, 160.02 cm) ED Course: 11:20 Patient arrived in ED. sb2 11:20 Partha Abraham MD is Private Physician. sb2 11:41 Triage completed. sv 11:44 Arm band placed on. sv 12:36 Jose De Jesus Graf MD is Attending Physician. ma2 12:51 Jocelyne Farrell, RN is Primary Nurse. aj1 13:00 Patient has correct armband on for positive identification. Bed in low position. Call aj1 light in reach. Side rails up X 1. 13:00 No provider procedures requiring assistance completed. aj1 13:15 Missed attempt(s): 24 gauge in left antecubital area. Bleeding controlled, band aid dh3 applied, catheter tip intact. 14:05 Missed attempt(s): 24 gauge in left upper arm. Bleeding controlled, band aid applied, ss catheter tip intact. 15:23 Patient did not have IV access during this emergency room visit. aj1 Administered Medications: No medications were administered Outcome: 15:14 Discharge ordered by . ma2 15:39 Discharged to home ambulatory. aj1 15:39 Condition: good 15:39 Discharge instructions given to patient, family, Instructed on discharge instructions, follow up and referral plans. 15:39 Patient left the ED. aj1 Signatures: Jocelyne Farrell, RN RN ajJanie Desir RN RN sv Smirch, Shelby RN TABATHA Dorman, Stefania 3 Jose De Jesus Graf MD MD ma2 Billeau, Sheri sb2 Corrections: (The following items were deleted from the chart) 11:43 11:40 Presenting complaint: Patient states: hypotension 98/60 reported by HD nurse, sv wouldn't do treatment. c/o lightheadedness, dizziness for a couple of days. sv 11:46 11:43 Temp 97F; 76.2 kg Reported; Height 5 ft. 3 in.; BMI: 29.7; Pain 0/10; [facility]
[2018-06-18 16:31] VITALS: TEMP 97
[2018-06-18 16:32] VITALS: BP 114/65; O2SAT 98
== END 2018-06-18 15:39 | disposition home or self-care (01) ==
LOC: ER 11:16
DX: R19.7 Diarrhea, unspecified (principal)
CPT/HCPCS: 36415; 80048; 80076; 83690; 85025; 99281

== ENCOUNTER 2018-10-30 18:29 | Emergency (ER) | payer OTHER ==
--- OUTSIDE RECORDS SUMMARY | 2018-10-30 18:32 | XMS REPORT | Clinical Summary ---
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; Impending cerebrovascular accident (HCC) 01/07/2018 Macario Byrd 12/17/2017 Abstract Macario Mccloud 12/17/2017 Abstract Macario Mccloud after 10/29/2017 Social History Tobacco Use Types Packs/Day Years [...] INFLUENZA VACCINE 03/21/2018 Results Not on fileafter 10/29/2017 Insurance Payer Benefit Plan / Group Subscriber ID Type Phone Address MEDICARE MEDICARE A B xxxxxxxxxx Medicare MEDICAID MEDICAID OF [place] xxxxxxxxx Medicaid Advance Directives For more information, please contact:[address] [phone] Code Status Date Activated Date Inactivated Comments Full Code 01/03/2017 1:56 AM 01/07/2017 5:21 PM This code status was determined by: Patient
--- OUTSIDE RECORDS SUMMARY | 2018-10-30 18:33 | XMS REPORT | CCD ---
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 Medications Medication Instructions [...] IVPB, Drug 09/01/2011 09/01/2011 Deleted form: INJ, [id number], Start date: 09/01/11 20:00:00, Duration: 30 day, Stop date: 10/01/11 8:00:00 clindamycin 600 mg, Route: IVPB, 09/07/2011 09/07/2011 Completed ONCE, Start date: 09/07/11 8:31:00, Stop date: 09/07/11 8:31:00 morphine Sulfate 4 mg, 1 mL, Route: IVP, 09/01/2011 09/01/2011 Completed Drug form: INJ, ONCE, Start date: 09/01/11 12:13:00, Stop date: 09/01/11 12:13:00 Gering 10/325 oral tablet 1 tab, Route: PO, [...] times, Stop date: Limited # of times Gering 5/325 oral tablet 1 tab, Route: PO, [...] IVPB, Drug 09/01/2011 09/02/2011 Discontinued form: INJ, [id number], Start date: 09/01/11 19:00:00, Duration: 30 day, [...] Ordered capsule 30 cap, Substitution Allowed, CAP Gering 10/325 oral tablet 1 tab, PO, Q4H, [...] IVPB, Drug 09/02/2011 09/03/2011 Discontinued form: INJ, [id number], Start date: 09/02/11 9:00:00, Duration: 30 day, [...] date: 09/02/11 11:15:00, Stop date: 09/02/11 11:15:00 Gering 10/325 oral tablet 1 tab, Route: PO, Drug 09/04/2011 09/09/2011 Discontinued Form: TAB, Q4H, PRN Pain, Start date: 09/04/11 9:49:00, Stop date: 10/04/11 9:48:00 Gering 10/325 oral tablet 1 tab, Route: PO, [...] Duration: 30 day, Stop date: 10/01/11 21:00:00 Gering 5/325 oral tablet 1 tab, Route: PO, [...] based on the clinical recommendations of the [place] [employer].5Interpretive Data: Reference Ranges : 0 - 7 days : 41 - 90 mg/dL7 days - 150 yrs : 70 - 99 mg/dL (fasting), based on the clinical recommendations of the [place] [employer].6Interpretive Data : Reference Ranges : 0 - 7 days : 41 - 90 mg/dL7 days - 150 yrs : 70 - 99 mg/dL (fasting), based on the clinical recommendations of the [place] [employer].HEMATOLOGY Most recent to oldest 1 [...] Data: Heparin Therapeutic Range: 57 - 92 [id number] Data: Heparin Therapeutic Range: 57 - 92 [...] SOURCE: rt septic bursitis, [place] [address],cup FINAL REPORTS Final ReportMany Methicillin Resistant Staphylococcus aureus Refer To Culture # [id number] (collected 09/01/11) For Susceptibility ResultsPRELIMINARY REPORTS Preliminary [...] rt septic barsitis , [place], [address],e- swab FINAL REPORTS Final ReportModerate Methicillin Resistant Staphylococcus aureus Refer To Culture # [id number] (collected 09/01/11) For Susceptibility ResultsPRELIMINARY REPORTS Preliminary [...] TEXT SOURCE: [place] septic bursitis,[place] [address],e-swab FINAL REPORTS Final ReportMany Methicillin Resistant Staphylococcus aureusPRELIMINARY REPORTS Preliminary ReportYoung Growth, Reincubating Many Staphylococcus aureus Preliminary ReportMany Staphylococcus aureus Preliminary ReportYoung Growth, Reincubating STAIN REPORTS Stain ReportMany Wbc'S; Many Rbc'S Few Gram Positive Cocci In Clusters Significant Findings Called To: VALDEMAR, [id number], Olga Castorena RN At: 09/01/2011 22:52:25 Called [...]
--- OUTSIDE RECORDS SUMMARY | 2018-10-30 18:33 | XMS REPORT | CCD ---
:1980 Author Organization [facility] Care Team Providers Name Role Phone Blake [...] Active Nausea and vomiting Active - Elbow [id number] added by Discern Expert. Medications Medication Instructions [...] range values reflect the clinical guidelinesof the [place] [employer].5Interpretive Data: Drugs reported as positive [...]
--- OUTSIDE RECORDS SUMMARY | 2018-10-30 18:34 | XMS REPORT | CCD ---
:1980 Author Organization 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 Medications Medication Instructions [...] range values reflect the clinical guidelinesof the [place] [employer].HEMATOLOGY Most recent to oldest [Reference [...]
--- OUTSIDE RECORDS SUMMARY | 2018-10-30 18:34 | XMS REPORT | CCD ---
:1980 Author Organization [facility] Care Team Providers Name Role Phone [...] based on the clinical recommendations of the [place] [employer].6Interpretive Data: Reference Ranges : 0 - 7 days : 41 - 90 mg/dL7 days - 150 yrs : 70 - 99 mg/ dL (fasting), based on the clinical recommendations of the [place] [employer].7Interpretive Data: Reference Ranges : 0 - 7 days : 41 - 90 mg/ dL7 days - 150 yrs : 70 - 99 mg/dL (fasting), based on the clinical recommendations of the [place] [employer].HEMATOLOGY Most recent to oldest 1 [...]
--- OUTSIDE RECORDS SUMMARY | 2018-10-30 18:35 | XMS REPORT | CCD ---
:1980 Author Organization [facility] Care Team Providers Name [...] Active Nausea and vomiting Active - Elbow [id number] added by Discern Expert. Medications Medication Instructions [...] Seen /LPF] Few /LPF (04/14/2013 23:48:55) UA [place] Yeast [None Seen /HPF] Occasional /HPF *ABN* [...] values reflect the clinical guidelines of the [place] Diabetes [employer].HEMATOLOGY Most recent to oldest [Reference [...]
--- OUTSIDE RECORDS SUMMARY | 2018-10-30 18:35 | XMS REPORT | CCD ---
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 Medications Medication Instructions [...] Seen /LPF] Few /LPF (04/14/2013 23:48:55) [facility] [place] Yeast [None Seen /HPF] Occasional /HPF *ABN* [...]
--- OUTSIDE RECORDS SUMMARY | 2018-10-30 18:35 | XMS REPORT | CCD ---
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 Medications Medication Instructions [...] Seen /LPF] Few /LPF (04/14/2013 23:48:55) UA [place] Yeast [None Seen /HPF] Occasional /HPF *ABN* [...] values reflect the clinical guidelines of the [place] [employer].HEMATOLOGY Most recent to oldest [Reference [...]
--- OUTSIDE RECORDS SUMMARY | 2018-10-30 18:35 | XMS REPORT | CCD ---
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 Medications Medication Instructions [...] values reflect the clinical guidelines of the [place] [employer].HEMATOLOGY Most recent to oldest [Reference [...]
--- OUTSIDE RECORDS SUMMARY | 2018-10-30 18:35 | XMS REPORT | CCD ---
:[address] [facility] Care Team Providers Name Role [...] Active Nausea and vomiting Active - Elbow [id number] added by Discern Expert. Medications Medication Instructions [...] Seen /LPF] Few /LPF (04/14/2013 23:48:55) [facility]A [place] Yeast [None Seen /HPF] Occasional /HPF *ABN* [...] values reflect the clinical guidelines of the [place] [employer].HEMATOLOGY Most recent to oldest [Reference [...]
--- OUTSIDE RECORDS SUMMARY | 2018-10-30 18:36 | XMS REPORT | CCD ---
:1980 Author Organization [facility] Care Team Providers Name Role Phone [...] Active Nausea and vomiting Active - Elbow [id number] added by Discern Expert. Medications Medication Instructions [...] Seen /LPF] Few /LPF (04/14/2013 23:48:55) UA [place] Yeast [None Seen /HPF] Occasional /HPF *ABN* [...] values reflect the clinical guidelines of the [place] Diabetes [employer].HEMATOLOGY Most recent to oldest [Reference [...]
--- OUTSIDE RECORDS SUMMARY | 2018-10-30 18:38 | XMS REPORT ---
:1980 [facility] Address [address] [place] [address] Care Team Providers Name Role Phone DANELLE BHAKTAAILYN HAWA Unavailable Unavailable Problems This patient has no known problems. Allergies, Adverse Reactions, Alerts This patient has no known allergies or adverse reactions. Medications This patient has no known medications. Results Test Description Test Time Test Comments Text Results Atomic Results Result Comments HERPES VIRUS ANTIBODY, IGM 2017-01-11 21:46:00 Test Item Value Reference Range Comments HERPES VIRUS IGM (BEAKER) (test kapx=4984) Negative SEE ATTACHMENT BLOOD [id number] 06:00:00 Test Item Value Reference Range Comments CULTURE (BEAKER) (test jlew=9340) No growth in 5 days BLOOD [id number] 06:00:00 Test Item Value Reference Range Comments CULTURE (BEAKER) (test jary=9320) No growth in 5 days POCT-GLUCOSE [id number] 12:11:00 Test Item Value Reference Range Comments POC-GLUCOSE METER (BEAKER) 154 mg/dL 70-110 TESTED AT [address] (test vcop=1505) [facility] [address] POCT-GLUCOSE [id number] 07:53:00 Test Item Value Reference Range Comments POC-GLUCOSE METER (BEAKER) 87 mg/dL 70-110 TESTED AT [address] (test ueov=7705) [facility] [address] POCT-GLUCOSE [id number] 06:49:00 Test Item Value Reference Range Comments POC-GLUCOSE METER (BEAKER) 79 mg/dL 70-110 TESTED AT [address] (test stic=5788) [facility] [address] COMPREHENSIVE METABOLIC [id number] 06:15:00 Test Item Value Reference Range Comments TOTAL PROTEIN (BEAKER) 5.1 gm/dL 6.0-8.3 (test csbe=198) ALBUMIN (BEAKER) (test 2.2 g/dL 3.5-5.0 eplk=1048) ALKALINE PHOSPHATASE 78 U/L 40-150 (BEAKER) (test mjml=330) BILIRUBIN TOTAL (BEAKER) 1.1 mg/dL 0.2-1.2 (test afts=860) SODIUM (BEAKER) (test 142 meq/L 136-145 orsb=470) POTASSIUM (BEAKER) (test 3.6 meq/L 3.5-5.1 jpgw=311) CHLORIDE (BEAKER) (test 106 meq/L 98-107 jyek=418) CO2 (BEAKER) (test 27 meq/L 22-29 pggz=008) BLOOD UREA NITROGEN 29 mg/dL 7-21 (BEAKER) (test gvfe=993) CREATININE (BEAKER) (test 2.70 mg/dL 0.57-1.25 fiqg=163) GLUCOSE RANDOM (BEAKER) 79 mg/dL 70-105 (test kent=365) CALCIUM (BEAKER) (test 8.2 mg/dL 8.4-10.2 qhlx=394) AST (SGOT) (BEAKER) (test 256 U/L 5-34 qxjo=273) ALT (SGPT) (BEAKER) (test 513 U/L 6-55 alem=969) EGFR (BEAKER) (test 20 mL/min/1.73 sq m ESTIMATED GFR IS NOT ussu=4102) ACCURATE CREATININE CLEARANCE IN PREDICTING GLOMERULAR FILTRATION RATE. ESTIMATED GFR IS NOT APPLICABLE FOR DIALYSIS PATIENTS. [id number] 06:11:00 Test Item Value Reference Range Comments MAGNESIUM (BEAKER) (test mcuy=552) 2.1 mg/dL 1.6-2.6 HEPATIC FUNCTION [id number] 06:11:00 Test Item Value Reference Range Comments TOTAL PROTEIN (BEAKER) (test chcf=473) 5.1 gm/dL 6.0-8.3 ALBUMIN (BEAKER) (test nllj=7001) 2.2 g/dL 3.5-5.0 BILIRUBIN TOTAL (BEAKER) (test umjn=534) 1.1 mg/dL 0.2-1.2 BILIRUBIN DIRECT (BEAKER) (test smhy=635) 0.7 mg/dL 0.1-0.5 ALKALINE PHOSPHATASE (BEAKER) (test pbgt=501) 78 U/L 40-150 AST (SGOT) (BEAKER) (test pfec=932) 256 U/L 5-34 ALT (SGPT) (BEAKER) (test faqm=931) 513 U/L 6-55 [id number] 05:30:00 Test Item Value Reference Range Comments FIBRINOGEN LEVEL (BEAKER) (test wxcv=060) 368 mg/dl 225-434 [id number] 05:30:00 Test Item Value Reference Range Comments PARTIAL THROMBOPLASTIN TIME (BEAKER) (test 42.2 seconds 22.5-36.0 true=593) PROTHROMBIN [id number] 05:29:00 Test Item Value Reference Range Comments PROTIME (BEAKER) (test cpji=156) 14.8 seconds 11.7-14.7 INR (BEAKER) (test jbde=655) 1.2 <=5.9 RECOMMENDED COUMADIN/WARFARIN INR THERAPY RANGESSTANDARD DOSE: 2.0 - 3.0 Includes: PROPHYLAXIS forvenous thrombosis, systemic embolization; TREATMENT for venous thrombosis and/or pulmonary embolus.HIGH RISK: Target INR is 2.5-3.5 for patients with mechanical heart valves.POCT-GLUCOSE [id number] 21:09:00 Test Item Value Reference Range Comments POC-GLUCOSE METER (BEAKER) 178 mg/dL 70-110 TESTED AT [address] (test jftf=9570) [place] [address] POCT-GLUCOSE [id number] 17:18:00 Test Item Value Reference Range Comments POC-GLUCOSE METER (BEAKER) 178 mg/dL 70-110 TESTED AT [address] (test cwsx=0975) [place] [address] POCT-GLUCOSE [id number] 13:48:00 Test Item Value Reference Range Comments POC-GLUCOSE METER (BEAKER) 150 mg/dL 70-110 TESTED AT [address] (test hntp=1331) [place] [address] FACTOR 5 ACTIVITY (BLEEDING RISK)2017-01-06 10:04:00 Test Item Value Reference Range Comments FACTOR V ACTIVITY (BEAKER) (test bcwe=830) 90.0 % 60.0-150.0 Effective 10/24/2013: Reference Range Change-Adult onlyNew: 60.0-150.0 Previous : 50.0-150.0CYTOMEGALOVIRUS ANTIBODY, [id number] 09:42:00 Test Item Value Reference Range Comments CYTOMEGALOVIRUS IGM ANTIBODY (BEAKER) (test Negative drxj=747) HERPES VIRUS ANTIBODY, [id number] 08:59:00 Test Item Value Reference Range Comments HERPES VIRUS IGG (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 [address] [facility] (test iriw=5180) [facility] [address] COMPREHENSIVE METABOLIC [id number] 06:23:00 Test Item Value Reference Range Comments TOTAL PROTEIN (BEAKER) 5.3 gm/dL 6.0-8.3 (test ired=389) ALBUMIN (BEAKER) (test 2.4 g/dL 3.5-5.0 gvxz=6481) ALKALINE PHOSPHATASE 85 U/L 40-150 (BEAKER) (test zurl=617) BILIRUBIN TOTAL (BEAKER) 1.5 mg/dL 0.2-1.2 (test efqe=864) SODIUM (BEAKER) (test 142 meq/L 136-145 jpwf=313) POTASSIUM (BEAKER) (test 3.5 meq/L 3.5-5.1 ugls=160) CHLORIDE (BEAKER) (test 103 meq/L 98-107 iumz=147) CO2 (BEAKER) (test 27 meq/L 22-29 yjcu=077) BLOOD UREA NITROGEN 30 mg/dL 7-21 (BEAKER) (test yung=216) CREATININE (BEAKER) (test 3.00 mg/dL 0.57-1.25 slen=766) GLUCOSE RANDOM (BEAKER) 99 mg/dL 70-105 (test vggh=487) CALCIUM (BEAKER) (test 8.7 mg/dL 8.4-10.2 oido=535) AST (SGOT) (BEAKER) (test 364 U/L 5-34 roue=070) ALT (SGPT) (BEAKER) (test 779 U/L 6-55 ckmk=428) EGFR (BEAKER) (test 18 mL/min/1.73 sq m ESTIMATED GFR IS NOT gucf=0624) ACCURATE CREATININE CLEARANCE IN PREDICTING GLOMERULAR FILTRATION RATE. ESTIMATED GFR IS NOT APPLICABLE FOR DIALYSIS PATIENTS. [id number] 06:17:00 Test Item Value Reference Range Comments MAGNESIUM (BEAKER) (test cqrf=719) 1.8 mg/dL 1.6-2.6 HEPATIC FUNCTION [id number] 06:17:00 Test Item Value Reference Range Comments TOTAL PROTEIN (BEAKER) (test toww=356) 5.3 gm/dL 6.0-8.3 ALBUMIN (BEAKER) (test dkmy=5622) 2.4 g/dL 3.5-5.0 BILIRUBIN TOTAL (BEAKER) (test lanp=172) 1.5 mg/dL 0.2-1.2 BILIRUBIN DIRECT (BEAKER) (test balv=934) 1.0 mg/dL 0.1-0.5 ALKALINE PHOSPHATASE (BEAKER) (test tkjp=279) 85 U/L 40-150 AST (SGOT) (BEAKER) (test meqd=880) 364 U/L 5-34 ALT (SGPT) (BEAKER) (test eddr=856) 779 U/L 6-55 [id number] 06:00:00 Test Item Value Reference Range Comments FIBRINOGEN LEVEL (BEAKER) (test ttml=051) 390 mg/dl 225-434 [id number] 06:00:00 Test Item Value Reference Range Comments PARTIAL THROMBOPLASTIN TIME (BEAKER) (test 40.2 seconds 22.5-36.0 dlfb=581) PROTHROMBIN [id number] 05:59:00 Test Item Value Reference Range Comments PROTIME (BEAKER) (test nnqu=961) 14.6 seconds 11.7-14.7 INR (BEAKER) (test rpzd=705) 1.2 <=5.9 RECOMMENDED COUMADIN/WARFARIN INR THERAPY RANGESSTANDARD DOSE: 2.0 - 3.0 Includes: PROPHYLAXIS forvenous thrombosis, systemic embolization; TREATMENT for venous thrombosis and/or pulmonary embolus.HIGH RISK: Target INR is 2.5-3.5 for patients with mechanical heart valves.POCT-GLUCOSE [id number] 21:46:00 Test Item Value Reference Range Comments POC-GLUCOSE METER (BEAKER) 153 mg/dL 70-110 TESTED AT [address] (test zchm=9955) [facility] [address] POCT-GLUCOSE [id number] 18:47:00 Test Item Value Reference Range Comments POC-GLUCOSE METER (BEAKER) 181 mg/dL 70-110 TESTED AT [address] (test uomk=9453) [place] [id number] POCT-GLUCOSE [id number] 12:40:00 Test Item Value Reference Range Comments POC-GLUCOSE METER (BEAKER) 178 mg/dL 70-110 TESTED AT [address] (test ppxc=3850) [place] [id number] POCT-GLUCOSE [id number] 07:51:00 Test Item Value Reference Range Comments POC-GLUCOSE METER (BEAKER) 166 mg/dL 70-110 TESTED AT [address] (test sgfy=4727) [place] [address] COMPREHENSIVE METABOLIC [id number] 03:26:00 Test Item Value Reference Range Comments TOTAL PROTEIN (BEAKER) 5.2 gm/dL 6.0-8.3 (test hvky=861) ALBUMIN (BEAKER) (test 2.3 g/dL 3.5-5.0 qawq=2272) ALKALINE PHOSPHATASE 72 U/L 40-150 (BEAKER) (test isnw=188) BILIRUBIN TOTAL (BEAKER) 2.0 mg/dL 0.2-1.2 (test jzlz=444) SODIUM (BEAKER) (test 140 meq/L 136-145 mwbt=275) POTASSIUM (BEAKER) (test 3.3 meq/L 3.5-5.1 fguo=502) CHLORIDE (BEAKER) (test 99 meq/L 98-107 xxtt=951) CO2 (BEAKER) (test 29 meq/L 22-29 xdup=518) BLOOD UREA NITROGEN 35 mg/dL 7-21 (BEAKER) (test khkg=267) CREATININE (BEAKER) (test 3.44 mg/dL 0.57-1.25 udib=762) GLUCOSE RANDOM (BEAKER) 151 mg/dL 70-105 (test aije=692) CALCIUM (BEAKER) (test 8.6 mg/dL 8.4-10.2 iduk=897) AST (SGOT) (BEAKER) (test 506 U/L 5-34 jxuu=541) ALT (SGPT) (BEAKER) (test 1009 U/L 6-55 ugnm=300) EGFR (BEAKER) (test 15 mL/min/1.73 sq m ESTIMATED GFR IS NOT vivd=1726) ACCURATE CREATININE CLEARANCE IN PREDICTING GLOMERULAR FILTRATION RATE. ESTIMATED GFR IS NOT APPLICABLE FOR DIALYSIS PATIENTS. [id number] 03:22:00 Test Item Value Reference Range Comments MAGNESIUM (BEAKER) (test rgur=866) 1.4 mg/dL 1.6-2.6 HEPATIC FUNCTION [id number] 03:22:00 Test Item Value Reference Range Comments TOTAL PROTEIN (BEAKER) (test ifca=393) 5.2 gm/dL 6.0-8.3 ALBUMIN (BEAKER) (test ddsp=1239) 2.3 g/dL 3.5-5.0 BILIRUBIN TOTAL (BEAKER) (test ajco=376) 2.0 mg/dL 0.2-1.2 BILIRUBIN DIRECT (BEAKER) (test wquh=135) 1.3 mg/dL 0.1-0.5 ALKALINE PHOSPHATASE (BEAKER) (test prfg=054) 72 U/L 40-150 AST (SGOT) (BEAKER) (test xthz=029) 506 U/L 5-34 ALT (SGPT) (BEAKER) (test dghu=931) 1009 U/L 6-55 [id number] 03:12:00 Test Item Value Reference Range Comments AMMONIA (BEAKER) (test lqxq=301) 29 mol/L 18-72 [id number] 03:10:00 Test Item Value Reference Range Comments PARTIAL THROMBOPLASTIN TIME (BEAKER) (test 42.3 seconds 22.5-36.0 jeho=346) PROTHROMBIN [id number] 03:09:00 Test Item Value Reference Range Comments PROTIME (BEAKER) (test mgbz=730) 16.4 seconds 11.7-14.7 INR (BEAKER) (test avzh=204) 1.3 <=5.9 RECOMMENDED COUMADIN/WARFARIN INR THERAPY RANGESSTANDARD DOSE: 2.0 - 3.0 Includes: PROPHYLAXIS forvenous thrombosis, systemic embolization; TREATMENT for venous thrombosis and/or pulmonary embolus.HIGH RISK: Target INR is 2.5-3.5 for patients with mechanical heart valves.[id number] 03:09:00 Test Item Value Reference Range Comments FIBRINOGEN LEVEL (BEAKER) (test xqai=520) 413 mg/dl 225-434 CBC W/PLT COUNT & AUTO [id number] 03:09:00 Test Item Value Reference Range Comments WHITE BLOOD CELL COUNT (BEAKER) (test kptx=944) 2.9 K/ L 4.0-10.0 RED BLOOD CELL COUNT (BEAKER) (test urjx=162) 3.10 M/ L 4.00-5.00 HEMOGLOBIN (BEAKER) (test gbfl=175) 9.5 GM/DL 12.0-15.0 HEMATOCRIT (BEAKER) (test pslb=770) 29.2 % 36.0-45.0 MEAN CORPUSCULAR VOLUME (BEAKER) (test oqrl=714) 94.4 fL 82.0-99.0 MEAN CORPUSCULAR HEMOGLOBIN (BEAKER) (test 30.8 pg 27.0-33.0 vntw=095) MEAN CORPUSCULAR HEMOGLOBIN CONC (BEAKER) (test 32.6 GM/DL 32.0-36.0 phbw=418) RED CELL DISTRIBUTION WIDTH (BEAKER) (test 15.2 % 10.3-14.2 bfhq=900) PLATELET COUNT (BEAKER) (test vjgc=002) 118 K/CU MM 150-430 MEAN PLATELET VOLUME (BEAKER) (test ahva=953) 9.2 fL 6.5-10.5 NUCLEATED RED BLOOD CELLS (BEAKER) (test 0 /100 WBC 0-0 izty=169) NEUTROPHILS RELATIVE PERCENT (BEAKER) (test 59 % uaar=923) LYMPHOCYTES RELATIVE PERCENT (BEAKER) (test 27 % itrc=415) MONOCYTES RELATIVE PERCENT (BEAKER) (test 10 % rwhr=577) EOSINOPHILS RELATIVE PERCENT (BEAKER) (test 4 % nsly=406) BASOPHILS RELATIVE PERCENT (BEAKER) (test 1 % dovk=837) NEUTROPHILS ABSOLUTE COUNT (BEAKER) (test 1.71 K/ L 1.80-8.00 nowl=302) LYMPHOCYTES ABSOLUTE COUNT (BEAKER) (test 0.78 K/ L 1.48-4.50 dwbh=138) MONOCYTES ABSOLUTE COUNT (BEAKER) (test 0.29 K/ L 0.00-1.30 qmgd=486) EOSINOPHILS ABSOLUTE COUNT (BEAKER) (test 0.11 K/ L 0.00-0.50 brwg=203) BASOPHILS ABSOLUTE COUNT (BEAKER) (test 0.02 K/ L 0.00-0.20 rgug=338) 0.00POCT-GLUCOSE [id number] 22:33:00 Test Item Value Reference Range Comments POC-GLUCOSE METER (BEAKER) 230 mg/dL 70-110 TESTED AT [address] (test wlxr=9878) [place] [id number] POCT-GLUCOSE [id number] 18:17:00 Test Item Value Reference Range Comments POC-GLUCOSE METER (BEAKER) 222 mg/dL 70-110 TESTED AT [address] (test ykzm=9799) [place] [id number] COMPREHENSIVE METABOLIC [id number] 16:59:00 Test Item Value Reference Range Comments TOTAL PROTEIN (BEAKER) 4.9 gm/dL 6.0-8.3 (test vbil=236) ALBUMIN (BEAKER) (test 2.2 g/dL 3.5-5.0 qjki=6365) ALKALINE PHOSPHATASE 71 U/L 40-150 (BEAKER) (test sybh=464) BILIRUBIN TOTAL (BEAKER) 2.2 mg/dL 0.2-1.2 (test gmde=779) SODIUM (BEAKER) (test 140 meq/L 136-145 bvcd=891) POTASSIUM (BEAKER) (test 3.3 meq/L 3.5-5.1 qdjf=047) CHLORIDE (BEAKER) (test 99 meq/L 98-107 fzrj=894) CO2 (BEAKER) (test 28 meq/L 22-29 orgf=079) BLOOD UREA NITROGEN 36 mg/dL 7-21 (BEAKER) (test qaso=297) CREATININE (BEAKER) (test 3.57 mg/dL 0.57-1.25 eoxh=849) GLUCOSE RANDOM (BEAKER) 199 mg/dL 70-105 (test iibb=993) CALCIUM (BEAKER) (test 8.5 mg/dL 8.4-10.2 xbps=033) AST (SGOT) (BEAKER) (test 640 U/L 5-34 hnwy=991) ALT (SGPT) (BEAKER) (test 1071 U/L 6-55 wpwv=126) EGFR (BEAKER) (test 15 mL/min/1.73 sq m ESTIMATED GFR IS NOT sjbv=5387) ACCURATE CREATININE CLEARANCE IN PREDICTING GLOMERULAR FILTRATION RATE. ESTIMATED GFR IS NOT APPLICABLE FOR DIALYSIS PATIENTS. PERIPHERAL BLOOD SMEAR - PATHOLOGIST [id number] 15:30:00 Test Item Value Reference Range Comments RBC MORPHOLOGY (BEAKER) (test Polychromasia vzvy=1563) RBC MORPHOLOGY (BEAKER) (test Anisocytosis kcbf=59585) PERIPHERAL SMR REVIEW Cell counts confirmed (BEAKER) (test nkkr=8856) [id number] Josefina Lara M.D. (BEAKER) (test wsaq=3603) (electronic signature) PROTHROMBIN [id number] 15:12:00 Test Item Value Reference Range Comments PROTIME (BEAKER) (test wddt=832) 16.6 seconds 11.7-14.7 INR (BEAKER) (test yczl=469) 1.4 <=5.9 RECOMMENDED COUMADIN/WARFARIN INR THERAPY RANGESSTANDARD DOSE: 2.0 - 3.0 Includes: PROPHYLAXIS forvenous thrombosis, systemic embolization; TREATMENT for venous thrombosis and/or pulmonary embolus.HIGH RISK: Target INR is 2.5-3.5 for patients with mechanical heart valves.ANTI-NUCLEAR ANTIBODY (VIETTE)2017-01-04 14:32:00 Test Item Value Reference Range Comments ANTI-NUCLEAR ANTIBODY (IVETTE) (BEAKER) (test Negative Negative bude=283) POCT-GLUCOSE [id number] 12:47:00 Test Item Value Reference Range Comments POC-GLUCOSE METER (BEAKER) 212 mg/dL 70-[address] [facility] [address] [facility] (test obya=8959) [facility] [address] [id number] 12:34:00 Test Item Value Reference Range Comments RPR SCREEN (RetentionGrid) (test vwpi=088) Nonreactive Nonreactive CLOSTRIDIUM DIFFICILE TOXIN [id number] 10:12:00 Test Item Value Reference Range Comments CLOSTRIDIUM DIFFICILE TOXIN, PCR (RetentionGrid) (test Not Detected Not Detected joio=1567) This qualitative real-time polymerase chain reaction assay [...] Value Reference Range Comments FACTOR V ACTIVITY (RetentionGrid) (test uzsm=940) 86.0 % 60.0-150.0 Effective 10/24/2013: Reference Range Change-Adult onlyNew: 60.0-150.0 Previous : 50.0-150.0FACTOR 5 ACTIVITY (BLEEDING RISK)2017-01-04 09:13:00 Test Item Value Reference Range Comments FACTOR V ACTIVITY (RetentionGrid) (test ddwa=957) 56.0 % 60.0-150.0 Effective 10/24/2013: Reference Range Change-Adult onlyNew: 60.0-150.0 Previous : 50.0-150.0POCT-GLUCOSE [id number] 06:40:00 Test Item Value Reference Range Comments POC-GLUCOSE METER (RetentionGrid) 167 mg/dL 70-[address] [facility] [address] [facility] (test rnrx=8177) [facility] [address] COMPREHENSIVE METABOLIC [id number] 04:08:00 Test Item Value Reference Range Comments TOTAL PROTEIN (RetentionGrid) 4.7 gm/dL 6.0-8.3 (test qfkg=438) ALBUMIN (BEAKER) (test 2.1 g/dL 3.5-5.0 upux=3101) ALKALINE PHOSPHATASE 71 U/L 40-150 (BEAKER) (test jegv=461) BILIRUBIN TOTAL (BEAKER) 2.6 mg/dL 0.2-1.2 (test gcbi=019) SODIUM (BEAKER) (test 140 meq/L 136-145 aqzd=653) POTASSIUM (BEAKER) (test 2.8 meq/L 3.5-5.1 uoye=194) CHLORIDE (BEAKER) (test 95 meq/L 98-107 cumj=578) CO2 (BEAKER) (test 31 meq/L 22-29 jysb=123) BLOOD UREA NITROGEN 39 mg/dL 7-21 (BEAKER) (test cqow=214) CREATININE (BEAKER) (test 4.10 mg/dL 0.57-1.25 jtbu=341) GLUCOSE RANDOM (BEAKER) 155 mg/dL 70-105 (test mqhp=697) CALCIUM (BEAKER) (test 8.2 mg/dL 8.4-10.2 lrcw=914) AST (SGOT) (BEAKER) (test 846 U/L 5-34 peij=747) ALT (SGPT) (BEAKER) (test 1091 U/L 6-55 paqq=160) EGFR (BEAKER) (test mL/min/1.73 sq m INSUFFICIENT CLINICAL DATA xveq=1291) TO CALCULATE ESTIMATED GFR. Specimen slightly ictericHEPATIC FUNCTION [id number] 04:06:00 Test Item Value Reference Range Comments TOTAL PROTEIN (BEAKER) (test ilel=100) 4.7 gm/dL 6.0-8.3 ALBUMIN (BEAKER) (test jdms=0659) 2.1 g/dL 3.5-5.0 BILIRUBIN TOTAL (BEAKER) (test cfgk=144) 2.6 mg/dL 0.2-1.2 BILIRUBIN DIRECT (BEAKER) (test auho=582) 1.8 mg/dL 0.1-0.5 ALKALINE PHOSPHATASE (BEAKER) (test jpnw=376) 71 U/L 40-150 AST (SGOT) (BEAKER) (test bnmf=090) 846 U/L 5-34 ALT (SGPT) (BEAKER) (test bfsp=187) 1091 U/L 6-55 Specimen slightly [id number] 04:01:00 Test Item Value Reference Range Comments FIBRINOGEN LEVEL (BEAKER) (test yjxz=913) 379 mg/dl 225-434 [id number] 04:01:00 Test Item Value Reference Range Comments PARTIAL THROMBOPLASTIN TIME (BEAKER) (test 40.7 seconds 22.5-36.0 nojr=901) PROTHROMBIN TIME/[id number] 04:00:00 Test Item Value Reference Range Comments PROTIME (BEAKER) (test bygt=161) 18.7 seconds 11.7-14.7 INR (BEAKER) (test qmof=775) 1.6 <=5.9 RECOMMENDED COUMADIN/WARFARIN INR THERAPY RANGESSTANDARD DOSE: 2.0 - 3.0 Includes: PROPHYLAXIS forvenous thrombosis, systemic embolization; TREATMENT for venous thrombosis and/or pulmonary embolus.HIGH RISK: Target INR is 2.5-3.5 for patients with mechanical heart valves.CBC W/PLT COUNT & AUTO [id number] 03:56:00 Test Item Value Reference Range Comments WHITE BLOOD CELL COUNT (BEAKER) (test upur=303) 3.1 K/ L 4.0-10.0 RED BLOOD CELL COUNT (BEAKER) (test kzdo=382) 2.85 M/ L 4.00-5.00 HEMOGLOBIN (BEAKER) (test mjak=318) 8.8 GM/DL 12.0-15.0 HEMATOCRIT (BEAKER) (test mrje=776) 26.6 % 36.0-45.0 MEAN CORPUSCULAR VOLUME (BEAKER) (test yprv=886) 93.4 fL 82.0-99.0 MEAN CORPUSCULAR HEMOGLOBIN (BEAKER) (test 30.9 pg 27.0-33.0 aujv=212) MEAN CORPUSCULAR HEMOGLOBIN CONC (BEAKER) (test 33.0 GM/DL 32.0-36.0 rvyo=795) RED CELL DISTRIBUTION WIDTH (BEAKER) (test 14.9 % 10.3-14.2 zpxq=482) PLATELET COUNT (BEAKER) (test mmms=436) 98 K/CU MM 150-430 MEAN PLATELET VOLUME (BEAKER) (test aerd=688) 9.1 fL 6.5-10.5 NUCLEATED RED BLOOD CELLS (BEAKER) (test 0 /100 WBC 0-0 rvdr=496) NEUTROPHILS RELATIVE PERCENT (BEAKER) (test 55 % busp=193) LYMPHOCYTES RELATIVE PERCENT (BEAKER) (test 27 % sxur=381) MONOCYTES RELATIVE PERCENT (BEAKER) (test 12 % lcbf=013) EOSINOPHILS RELATIVE PERCENT (BEAKER) (test 5 % tcse=059) BASOPHILS RELATIVE PERCENT (BEAKER) (test 1 % vfli=265) NEUTROPHILS ABSOLUTE COUNT (BEAKER) (test 1.71 K/ L 1.80-8.00 hvvf=446) LYMPHOCYTES ABSOLUTE COUNT (BEAKER) (test 0.83 K/ L 1.48-4.50 ohkp=349) MONOCYTES ABSOLUTE COUNT (BEAKER) (test amdl=178) 0.38 K/ L 0.00-1.30 EOSINOPHILS ABSOLUTE COUNT (BEAKER) (test 0.14 K/ L 0.00-0.50 yrak=504) BASOPHILS ABSOLUTE COUNT (BEAKER) (test mekw=163) 0.02 K/ L 0.00-0.20 0.00POCT-GLUCOSE [id number] 00:19:00 Test Item Value Reference Range Comments POC-GLUCOSE METER (BEAKER) 159 mg/dL 70-110 TESTED AT [address] (test qepz=3937) [place] [id number] POCT-GLUCOSE [id number] 18:56:00 Test Item Value Reference Range Comments POC-GLUCOSE METER (BEAKER) 192 mg/dL 70-110 TESTED AT [address] (test atgz=5847) [place] [id number] COMPREHENSIVE METABOLIC [id number] 16:55:00 Test Item Value Reference Range Comments TOTAL PROTEIN (BEAKER) 4.5 gm/dL 6.0-8.3 (test gsqp=097) ALBUMIN (BEAKER) (test 2.0 g/dL 3.5-5.0 aflz=6140) ALKALINE PHOSPHATASE 74 U/L 40-150 (BEAKER) (test ttio=506) BILIRUBIN TOTAL (BEAKER) 2.9 mg/dL 0.2-1.2 (test ombd=993) SODIUM (BEAKER) (test 142 meq/L 136-145 kwhl=521) POTASSIUM (BEAKER) (test 3.0 meq/L 3.5-5.1 seyw=246) CHLORIDE (BEAKER) (test 95 meq/L 98-107 ufkl=755) CO2 (BEAKER) (test 33 meq/L 22-29 urbj=924) BLOOD UREA NITROGEN 45 mg/dL 7-21 (BEAKER) (test flml=368) CREATININE (BEAKER) (test 4.87 mg/dL 0.57-1.25 sjnm=903) GLUCOSE RANDOM (BEAKER) 177 mg/dL 70-105 (test jqth=585) CALCIUM (BEAKER) (test 8.4 mg/dL 8.4-10.2 nsmj=916) AST (SGOT) (BEAKER) (test 1283 U/L 5-34 ypku=784) ALT (SGPT) (BEAKER) (test 1314 U/L 6-55 lmko=021) EGFR (BEAKER) (test mL/min/1.73 sq m INSUFFICIENT CLINICAL DATA uthe=5604) TO CALCULATE ESTIMATED GFR. Specimen slightly ictericPROTHROMBIN [id number] 16:37:00 Test Item Value Reference Range Comments PROTIME (BEAKER) (test zkpu=810) 20.9 seconds 11.7-14.7 INR (BEAKER) (test ibwh=690) 1.8 <=5.9 RECOMMENDED COUMADIN/WARFARIN INR THERAPY RANGESSTANDARD DOSE: 2.0 - 3.0 Includes: PROPHYLAXIS forvenous thrombosis, systemic embolization; TREATMENT for venous thrombosis and/or pulmonary embolus.HIGH RISK: Target INR is 2.5-3.5 for patients with mechanical heart valves.HEPATITIS B SURFACE [id number] 14:05:00 Test Item Value Reference Range Comments HEPATITIS B SURFACE ANTIBODY (BEAKER) (test < mIU/mL <8.0 itew=235) HEPATITIS B CORE ANTIBODY, [id number] 13:43:00 Test Item Value Reference Range Comments HEPATITIS B CORE TOTAL ANTIBODY (BEAKER) (test Nonreactive Nonreactive ofnn=821) BLOOD GAS, [id number] 13:35:00 Test Item Value Reference Range Comments PH ARTERIAL (BEAKER) (test zuac=862) 7.44 7.35-7.45 PCO2 ARTERIAL (BEAKER) (test djtj=352) 55 mmHg 35-45 PO2 ARTERIAL (BEAKER) (test otjj=175) 99 mmHg 80-90 O2 SATURATION ARTERIAL (BEAKER) (test mfdb=131) 97.4 % 96.0-97.0 HCO3 ARTERIAL (BEAKER) (test rcgj=426) 36 mmol/L 21-29 BASE EXCESS ARTERIAL (BEAKER) (test xjqj=272) 10.3 mmol/L -2.0-3.0 PATIENT TEMPERATURE (BEAKER) (test ngfs=4717) 37.5 C FIO2 (BEAKER) (test khde=8841) 28.0 % URINALYSIS W/ [id number] 13:16:00 Test Item Value Reference Range Comments COLOR (BEAKER) (test xqyn=585) Yellow CLARITY (BEAKER) (test oyyt=947) Clear SPECIFIC GRAVITY UA (BEAKER) (test govl=247) 1.013 1.001-1.035 PH UA (BEAKER) (test rues=634) 6.0 5.0-8.0 PROTEIN UA (BEAKER) (test yreb=508) 300 mg/dL Negative GLUCOSE UA (BEAKER) (test hdrd=502) 30 mg/dL Negative KETONES UA (BEAKER) (test fjkc=657) Trace Negative BILIRUBIN UA (BEAKER) (test uplo=127) Positive Negative BLOOD UA (BEAKER) (test yaqy=194) Moderate Negative NITRITE UA (BEAKER) (test vvee=086) Negative Negative LEUKOCYTE ESTERASE UA (BEAKER) (test rfcz=942) Moderate Negative UROBILINOGEN UA (BEAKER) (test gugq=493) 2.0 mg/dL 0.2-1.0 RBC UA (BEAKER) (test etgd=564) 2 /HPF WBC UA (BEAKER) (test pjqe=966) 41 /HPF HYALINE CASTS (BEAKER) (test toua=454) 10 /LPF AMORPHOUS CRYSTALS (BEAKER) (test edek=5664) Rare SOURCE(BEAKER) (test xdgr=4503) Urine, [place] VITAMIN D, [id number] 13:14:00 Test Item Value Reference Range Comments VITAMIN D 25-OH (BEAKER) (test wfyu=9612) < ng/mL 13.0-47.8 ALPHA FETOPROTEIN (AFP), TUMOR [id number] 13:06:00 Test Item Value Reference Range Comments ALPHA-FETOPROTEIN (BEAKER) (test lwyy=5428) < ng/mL <10.0 Effective 05/08/2014: Reference Range ChangeNew: <10.0 Previous: 0.0- 8.0HEMOGLOBIN [id number] 13:05:00 Test Item Value Reference Range Comments HEMOGLOBIN A1C (BEAKER) (test xyiz=407) 7.6 % 4.3-6.1 CARCINOEMBRYONIC ANTIGEN (CEA)2017-01-03 12:59:00 Test Item Value Reference Range Comments CARCINOEMBRYONIC ANTIGEN (BEAKER) (test bsho=048) 2.0 ng/mL 0.0-5.0 [id number] 12:59:00 Test Item Value Reference Range Comments FERRITIN (BEAKER) (test bgtv=391) 1841 ng/mL 5-275 Effective 05/08/2014: Reference Range ChangeNew: Male 5-275 Previous: Male 22-322 Female 5-275 Female [id number] 12:58:00 Test Item Value Reference Range Comments T4 TOTAL (BEAKER) (test mebb=273) 4.5 ug/dL 4.9-11.7 [id number] 12:58:00 Test Item Value Reference Range Comments THYROID STIMULATING HORMONE (BEAKER) (test 1.79 uIU/mL 0.35-4.94 tsem=077) [id number] 12:58:00 Test Item Value Reference Range Comments T3 TOTAL (BEAKER) (test zoib=222) 34 ng/dL 48-159 Effective 05/08/2014: Reference Range ChangeNew: 48-159 Previous: 60- 181CALCIUM, [id number] 12:47:00 Test Item Value Reference Range Comments CALCIUM IONIZED (BEAKER) (test odik=347) 1.05 mmol/L 1.12-1.27 PH, BLOOD (BEAKER) (test ofbs=3510) 7.43 [id number] 12:42:00 Test Item Value Reference Range Comments TRANSFERRIN (BEAKER) (test rmtx=380) 128 mg/dL 174-382 Specimen slightly ictericIRON, TIBC, % SAT. (WITHOUT FERRITIN)2017-01-03 12:42: 00 Test Item Value Reference Range Comments IRON (BEAKER) (test phda=500) 59 ug/dL 40-160 TOTAL IRON BINDING CAPACITY (BEAKER) (test 160 ug/dL 250-450 azay=758) IRON % SATURATION (2) (BEAKER) (test klqs=0535) 37 % 20-55 URIC [id number] 12:40:00 Test Item Value Reference Range Comments URIC ACID (BEAKER) (test aspr=490) 16.0 mg/dL 2.6-7.2 Specimen slightly ictericLIPID [id number] 12:40:00 Test Item Value Reference Range Comments TRIGLYCERIDES (BEAKER) (test asiw=163) 134 mg/dL CHOLESTEROL (BEAKER) (test lhlc=670) 120 mg/dL HDL CHOLESTEROL (BEAKER) (test ubgj=260) 7 mg/dL LDL CHOLESTEROL CALCULATED (BEAKER) (test 86 mg/dL hqjv=950) Triglyceride Reference Range: Low Risk <150 Borderline 150- 199 High Risk 200-499 Very High Risk >=500Cholesterol Reference Range: Low Risk <200 Borderline 200-239 High Risk > 240HDL Cholesterol Reference Range: Low Risk >=60 High Risk <40LDL Cholesterol Reference Range: Optimal <100 Near Optimal 100-129 Borderline 130-159 High 160-189 Very High >=190 Specimen slightly ictericBILIRUBIN, [id number] 12:40:00 Test Item Value Reference Range Comments BILIRUBIN DIRECT (BEAKER) (test xhgm=539) 2.4 mg/dL 0.1-0.5 GAMMA GLUTAMYL TRANSFERASE (GGT)2017-01-03 12:40:00 Test Item Value Reference Range Comments GAMMA GLUTAMYL TRANSFERASE (BEAKER) (test dkgi=484) 53 U/L 9-64 Specimen slightly [id number] 12:39:00 Test Item Value Reference Range Comments ETHANOL (BEAKER) (test ubzb=600) < mg/dL <=10 SCREEN, [id number] 12:36:00 Test Item Value Reference Range Comments TEST URINE (BEAKER) (test rxuv=540) Negative POCT-GLUCOSE [id number] 12:34:00 Test Item Value Reference Range Comments POC-GLUCOSE METER (BEAKER) 189 mg/dL 70-110 TESTED AT [address] (test dppt=0210) [facility] [address] HIV-1 ANTIGEN WITH HIV-1/2 [id number] 11:58:00 Test Item Value Reference Range Comments HIV-1 ANTIGEN WITH HIV 1\T\2 ANTIBODY (2) Nonreactive Nonreactive (BEAKER) (test fsnf=0209) TROPONIN [id number] 09:44:00 Test Item Value Reference Range Comments TROPONIN I (BEAKER) (test locj=501) 0.34 ng/mL 0.00-0.03 Effective 05/08/2014: Reference Range [...] and persistent tachyarrhythmia.CREATINE KINASE (CK), TOTAL AND [id number] 09:43:00 Test Item Value Reference Range Comments CREATINE KINASE TOTAL (BEAKER) (test mzxe=157) 301 U/L 29-200 CREATINE KINASE-MB (BEAKER) (test mdgu=567) 5.6 ng/mL 0.0-6.6 CREATINE KINASE-MB INDEX (BEAKER) (test wnnm=952) 1.9 % Effective 05/08/2014: CK-MB Reference Range ChangeNew: 0.0-6.6 Previous: 0.0- 4.9CK-MB Reference Range:<6.7 Normal6.7-10.0 Borderline>10.0 AbnormalACETAMINOPHEN [id number] 08:31:00 Test Item Value Reference Range Comments ACETAMINOPHEN LEVEL (BEAKER) (test eqmv=894) < ug/mL 10.0-30.0 TROPONIN [id number] 05:53:00 Test Item Value Reference Range Comments TROPONIN I (BEAKER) (test ewfl=275) 0.33 ng/mL 0.00-0.03 Effective 05/08/2014: Reference Range [...] acute neurological disease, and persistent tachyarrhythmia.BASIC METABOLIC [id number] 05:53:00 Test Item Value Reference Range Comments SODIUM (BEAKER) (test 144 meq/L 136-145 ifyd=352) POTASSIUM (BEAKER) (test 2.8 meq/L 3.5-5.1 jyjz=427) CHLORIDE (BEAKER) (test 95 meq/L 98-107 dqml=677) CO2 (BEAKER) (test 35 meq/L 22-29 pywl=223) BLOOD UREA NITROGEN 49 mg/dL 7-21 (BEAKER) (test uptm=891) CREATININE (BEAKER) (test 5.61 mg/dL 0.57-1.25 kqil=269) GLUCOSE RANDOM (BEAKER) 138 mg/dL 70-105 (test gkrh=350) CALCIUM (BEAKER) (test 8.2 mg/dL 8.4-10.2 prkn=146) EGFR (BEAKER) (test mL/min/1.73 sq m INSUFFICIENT CLINICAL DATA zmdv=3831) TO CALCULATE ESTIMATED GFR. Specimen slightly [id number] 05:52:00 Test Item Value Reference Range Comments PHOSPHORUS (BEAKER) (test sbwm=211) 5.7 mg/dL 2.3-4.7 HEPATIC FUNCTION [id number] 05:52:00 Test Item Value Reference Range Comments TOTAL PROTEIN (BEAKER) (test dasq=298) 5.2 gm/dL 6.0-8.3 ALBUMIN (BEAKER) (test ezfv=7146) 2.3 g/dL 3.5-5.0 BILIRUBIN TOTAL (BEAKER) (test xddc=920) 3.5 mg/dL 0.2-1.2 BILIRUBIN DIRECT (BEAKER) (test utbn=637) 2.6 mg/dL 0.1-0.5 ALKALINE PHOSPHATASE (BEAKER) (test jgzw=943) 81 U/L 40-150 AST (SGOT) (BEAKER) (test fhyn=486) 2190 U/L 5-34 ALT (SGPT) (BEAKER) (test curd=868) 1782 U/L 6-55 Specimen slightly ictericCREATINE KINASE (CK), TOTAL AND [id number] 05:52:00 Test Item Value Reference Range Comments CREATINE KINASE TOTAL (BEAKER) (test abgl=452) 341 U/L 29-200 CREATINE KINASE-MB (BEAKER) (test rros=822) 5.4 ng/mL 0.0-6.6 CREATINE KINASE-MB INDEX (BEAKER) (test dpli=876) 1.6 % Effective 05/08/2014: CK-MB Reference Range ChangeNew: 0.0-6.6 Previous: 0.0- 4.9CK-MB Reference Range:<6.7 Normal6.7-10.0 Borderline>10.0 AbnormalCBC W/PLT COUNT & AUTO [id number] 05:48:00 Test Item Value Reference Range Comments WHITE BLOOD CELL COUNT (BEAKER) (test bypl=001) 4.1 K/ L 4.0-10.0 RED BLOOD CELL COUNT (BEAKER) (test ejut=393) 3.29 M/ L 4.00-5.00 HEMOGLOBIN (BEAKER) (test yysw=740) 10.0 GM/DL 12.0-15.0 HEMATOCRIT (BEAKER) (test zumf=801) 30.7 % 36.0-45.0 MEAN CORPUSCULAR VOLUME (BEAKER) (test uvyd=695) 93.5 fL 82.0-99.0 MEAN CORPUSCULAR HEMOGLOBIN (BEAKER) (test 30.5 pg 27.0-33.0 zqsb=232) MEAN CORPUSCULAR HEMOGLOBIN CONC (BEAKER) (test 32.6 GM/DL 32.0-36.0 qozg=726) RED CELL DISTRIBUTION WIDTH (BEAKER) (test 15.0 % 10.3-14.2 nwfz=064) PLATELET COUNT (BEAKER) (test mgmh=137) 106 K/CU MM 150-430 MEAN PLATELET VOLUME (BEAKER) (test ehus=316) 9.6 fL 6.5-10.5 NUCLEATED RED BLOOD CELLS (BEAKER) (test 0 /100 WBC 0-0 ccjq=974) NEUTROPHILS RELATIVE PERCENT (BEAKER) (test 66 % cnay=824) LYMPHOCYTES RELATIVE PERCENT (BEAKER) (test 24 % zgrp=550) MONOCYTES RELATIVE PERCENT (BEAKER) (test 6 % txtg=940) EOSINOPHILS RELATIVE PERCENT (BEAKER) (test 3 % qwza=925) BASOPHILS RELATIVE PERCENT (BEAKER) (test 0 % ftve=672) NEUTROPHILS ABSOLUTE COUNT (BEAKER) (test 2.74 K/ L 1.80-8.00 syed=900) LYMPHOCYTES ABSOLUTE COUNT (BEAKER) (test 1.00 K/ L 1.48-4.50 jzis=322) MONOCYTES ABSOLUTE COUNT (BEAKER) (test 0.26 K/ L 0.00-1.30 lutw=132) EOSINOPHILS ABSOLUTE COUNT (BEAKER) (test 0.13 K/ L 0.00-0.50 vwyy=297) BASOPHILS ABSOLUTE COUNT (BEAKER) (test 0.01 K/ L 0.00-0.20 hptx=836) [id number] 05:09:00 Test Item Value Reference Range Comments FIBRINOGEN LEVEL (BEAKER) (test uwhw=410) 427 mg/dl 225-434 [id number] 05:09:00 Test Item Value Reference Range Comments PARTIAL THROMBOPLASTIN TIME (BEAKER) (test 36.2 seconds 22.5-36.0 tsge=059) PROTHROMBIN [id number] 05:08:00 Test Item Value Reference Range Comments PROTIME (BEAKER) (test qwmo=521) 22.8 seconds 11.7-14.7 INR (BEAKER) (test vzlz=130) 2.0 <=5.9 RECOMMENDED COUMADIN/WARFARIN INR THERAPY RANGESSTANDARD DOSE: 2.0 - 3.0 Includes: PROPHYLAXIS forvenous thrombosis, systemic embolization; TREATMENT for venous thrombosis and/or pulmonary embolus.HIGH RISK: Target INR is 2.5-3.5 for patients with mechanical heart valves.HEPATITIS PANEL, [id number] 03:40 :00 Test Item Value Reference Range Comments HEPATITIS A IGM ANTIBODY (BEAKER) (test Nonreactive Nonreactive tera=764) HEPATITIS B CORE IGM ANTIBODY (BEAKER) (test Nonreactive Nonreactive yxdm=327) HEPATITIS C ANTIBODY (BEAKER) (test bnvm=266) Nonreactive Nonreactive HEPATITIS B SURFACE ANTIGEN (2) (BEAKER) (test Nonreactive Nonreactive siog=7410) CREATININE, RANDOM [id number] 03:18:00 Test Item Value Reference Range Comments CREATININE URINE (BEAKER) (test pzti=701) 118.7 mg/dL Reference Range: No NormalsSODIUM, RANDOM [id number] 03:18:00 Test Item Value Reference Range Comments SODIUM URINE (BEAKER) (test sdnx=432) 60 meq/L Reference Range: No NormalsUREA NITROGEN, RANDOM [id number] 03:18:00 Test Item Value Reference Range Comments UREA NITROGEN URINE (BEAKER) (test jpdo=008) 303 mg/dL Reference Range: No [id number] 03:07:00 Test Item Value Reference Range Comments AMMONIA (BEAKER) (test mjdd=066) 48 mol/L 18-72 [id number] 02:57:00 Test Item Value Reference Range Comments D-DIMER QUANTITATIVE (BEAKER) (test viqw=247) 18.03 MG/L FEU <0.50 Intended Use: The [...] is within 95-100% range.URINALYSIS W/ REFLEX URINE [id number] 02:53:00 Test Item Value Reference Range Comments COLOR (BEAKER) (test ezvs=981) Yellow CLARITY (BEAKER) (test cquy=097) Hazy SPECIFIC GRAVITY UA (BEAKER) (test mnxr=571) 1.012 1.001-1.035 PH UA (BEAKER) (test rqnd=382) 6.5 5.0-8.0 PROTEIN UA (BEAKER) (test mpln=728) 300 mg/dL Negative GLUCOSE UA (BEAKER) (test unju=058) Negative Negative KETONES UA (BEAKER) (test nzuw=822) Negative Negative BILIRUBIN UA (BEAKER) (test gxfa=518) Positive Negative BLOOD UA (BEAKER) (test gbnf=527) Moderate Negative NITRITE UA (BEAKER) (test tect=734) Negative Negative LEUKOCYTE ESTERASE UA (BEAKER) (test yygu=276) Large Negative UROBILINOGEN UA (BEAKER) (test srpc=966) 3.0 mg/dL 0.2-1.0 RBC UA (BEAKER) (test vrzx=449) 4 /HPF WBC UA (BEAKER) (test tvik=465) > /HPF BACTERIA (BEAKER) (test gfnh=125) Occasional MUCUS (BEAKER) (test ludy=4964) Rare SQUAMOUS EPITHELIAL (BEAKER) (test pvjr=914) 19 /HPF HYALINE CASTS (BEAKER) (test vvus=890) 13 /LPF SOURCE(BEAKER) (test nyyz=9550) [id number] 02:49:00 Test Item Value Reference Range Comments PARTIAL THROMBOPLASTIN TIME (BEAKER) (test 39.4 seconds 22.5-36.0 yscf=138) PROTHROMBIN TIME/[id number] 02:48:00 Test Item Value Reference Range Comments PROTIME (BEAKER) (test izcb=429) 22.0 seconds 11.7-14.7 INR (BEAKER) (test jdad=294) 1.9 <=5.9 RECOMMENDED COUMADIN/WARFARIN INR THERAPY RANGESSTANDARD DOSE: 2.0 - 3.0 Includes: PROPHYLAXIS forvenous thrombosis, systemic embolization; TREATMENT for venous thrombosis and/or pulmonary embolus.HIGH RISK: Target INR is 2.5-3.5 for patients with mechanical heart valves.[id number] 02:48:00 Test Item Value Reference Range Comments FIBRINOGEN LEVEL (BEAKER) (test thgu=338) 421 mg/dl 225-434 BLOOD GAS, [id number] 02:43:00 Test Item Value Reference Range Comments PH VENOUS (BEAKER) (test wfxd=197) 7.46 7.32-7.42 PCO2 VENOUS (BEAKER) (test yvsb=329) 53 mmHg 41-51 PO2 VENOUS (BEAKER) (test wjcn=546) 83 mmHg 25-40 O2 SATURATION VENOUS (BEAKER) (test eatt=847) 96.5 % 40.0-70.0 HCO3 VENOUS (BEAKER) (test vfly=611) 37 mmol/L 21-29 BASE EXCESS VENOUS (BEAKER) (test ysco=182) 11.7 mmol/L -2.0-3.0 PATIENT TEMPERATURE (BEAKER) (test fkdh=6818) 37.0 C FIO2 (BEAKER) (test jgbf=6242) 21.0 % CBC W/PLT COUNT & AUTO [id number] 02:43:00 Test Item Value Reference Range Comments WHITE BLOOD CELL COUNT (BEAKER) (test yagu=369) 4.4 K/ L 4.0-10.0 RED BLOOD CELL COUNT (BEAKER) (test mcvz=427) 3.13 M/ L 4.00-5.00 HEMOGLOBIN (BEAKER) (test mhve=775) 9.8 GM/DL 12.0-15.0 HEMATOCRIT (BEAKER) (test owbk=832) 29.0 % 36.0-45.0 MEAN CORPUSCULAR VOLUME (BEAKER) (test rsbp=269) 92.9 fL 82.0-99.0 MEAN CORPUSCULAR HEMOGLOBIN (BEAKER) (test 31.3 pg 27.0-33.0 gjwv=284) MEAN CORPUSCULAR HEMOGLOBIN CONC (BEAKER) (test 33.6 GM/DL 32.0-36.0 qvgv=698) RED CELL DISTRIBUTION WIDTH (BEAKER) (test 15.3 % 10.3-14.2 cnly=304) PLATELET COUNT (BEAKER) (test behy=653) 113 K/CU MM 150-430 MEAN PLATELET VOLUME (BEAKER) (test zyle=736) 9.8 fL 6.5-10.5 NUCLEATED RED BLOOD CELLS (BEAKER) (test 0 /100 WBC 0-0 wmdd=896) NEUTROPHILS RELATIVE PERCENT (BEAKER) (test 61 % tstw=871) LYMPHOCYTES RELATIVE PERCENT (BEAKER) (test 23 % csie=385) MONOCYTES RELATIVE PERCENT (BEAKER) (test 11 % xmbl=449) EOSINOPHILS RELATIVE PERCENT (BEAKER) (test 4 % rzsj=619) BASOPHILS RELATIVE PERCENT (BEAKER) (test 1 % xxev=686) NEUTROPHILS ABSOLUTE COUNT (BEAKER) (test 2.65 K/ L 1.80-8.00 dmty=031) LYMPHOCYTES ABSOLUTE COUNT (BEAKER) (test 1.01 K/ L 1.48-4.50 knmv=008) MONOCYTES ABSOLUTE COUNT (BEAKER) (test 0.48 K/ L 0.00-1.30 borh=108) EOSINOPHILS ABSOLUTE COUNT (BEAKER) (test 0.19 K/ L 0.00-0.50 atlj=381) BASOPHILS ABSOLUTE COUNT (BEAKER) (test 0.05 K/ L 0.00-0.20 xvgz=544) 0.00LACTIC ACID, VENOUS, WHOLE [id number] 02:35:00 Test Item Value Reference Range Comments LACTATE BLOOD VENOUS (2) (BEAKER) (test 0.8 mmol/L 0.5-2.2 dhcb=6839) Effective 10/23/2015: Units/Reference Range ChangeNew: 0.5-2.2 mmol/L Previous: 5 -20 mg/dLSpecimen slightly icteric
--- NOTE | 2018-10-30 20:45 | EDPHYS ---
Physician Documentation [facility] Name: Cathi Zaldivar Age: 38 yrs Sex: Female : 1980 Arrival Date: 10/30/2018 Time: 18:31 Bed 18 Private MD: Partha Abraham ED Physician Luis Sandra HPI: 10/30 19:23 This 38 yrs old Female presents to ER via Wheelchair with complaints of Leg cp Injury, Fall Injury. 19:25 Details of fall: The patient fell from an upright position, while walking. cp 19:25 Onset: The symptoms/episode began/occurred today. Associated injuries: The patient cp sustained right leg. Patient reports misstep today times 2 causing her to fall. Now having pain to right leg and abrasion across right knee. CANNONEER: 19:03 LMP N/A - Irregular menses aj Historical: - Allergies: 19:03 ambien; aj 19:03 Codeine; aj 19:03 Demerol; aj 19:03 Lisinopril; aj 19:03 Nitrofurantoin Macrocrystal; aj 19:03 PENICILLINS; aj 19:03 Prolixin; aj - Home Meds: 19:03 amlodipine 10 mg tab 1 tab once daily [Active]; divalproex 500 mg Oral TbEC once daily aj [Active]; doxazosin 4 mg Oral tab twice a day [Active]; gabapentin 100 mg Oral cap as needed [Active]; hydralazine 50 mg Oral tab [Active]; Lantus 100 unit/mL Sub-Q soln as needed [Active]; metoprolol tartrate 25 mg Oral tab 1 tab 2 times per day [Active]; pravastatin Oral [Active]; Novolog 100 unit/mL Sub-Q soln [Active]; sertraline 50 mg Oral tab [Active]; tramadol 50 mg Oral tab 1 tab PRN [Active]; Vitamin D3 5,000 unit Oral tab daily [Active]; Zofran (as hydrochloride) 4 mg Oral tab as needed [Active]; - PMHx: 19:03 chronic kidney disease; cyclic vomiting syndrome; Diabetes - NIDDM; ENCEPHALOPATHY; aj HD-TTHSat; liver failure; PERIPHERAL NEUROPATHY; Gastroparesis; - PSHx: 19:03 right arm fistula; aj - Immunization history:: Adult Immunizations up to date. - Social history:: Smoking status: Patient/guardian denies using tobacco. - Ebola Screening: : Patient negative for fever greater than or equal to 101.5 degrees Fahrenheit, and additional compatible Ebola Virus Disease symptoms Patient denies exposure to infectious person Patient denies travel to an Ebola-affected area in the 21 days before illness onset No symptoms or risks identified at this time. ROS: 19:30 Constitutional: Negative for body aches, chills, fever, poor PO intake. cp 19:30 Eyes: Negative for injury, pain, redness, and discharge. cp 19:30 Cardiovascular: Negative for chest pain, edema, palpitations. 19:30 Respiratory: Negative for cough, shortness of breath, wheezing. 19:30 Abdomen/GI: Negative for abdominal pain, nausea, vomiting, and diarrhea. 19:30 Back: Negative for pain at rest, pain with movement. 19:30 MS/extremity: Positive for pain, swelling, tenderness, of the right leg, Negative for decreased range of motion, deformity. 19:30 Neuro: Negative for altered mental status, headache, loss of consciousness, syncope, weakness. 19:30 All other systems are negative. Exam: 19:38 Constitutional: The patient appears in no acute distress, alert, awake, non-toxic, well cp developed, well nourished. 19:38 Head/Face: Normocephalic, atraumatic. cp 19:38 Eyes: Periorbital structures: appear normal, Conjunctiva: normal, no exudate, no injection, Lids and lashes: appear normal, bilaterally. 19:38 ENT: External ear(s): are unremarkable, Nose: is normal, Mouth: Lips: moist, Oral mucosa: moist, Posterior pharynx: is normal, no erythema, no exudate. 19:38 Neck: C-spine: vertebral tenderness, is not appreciated, crepitus, is not appreciated, ROM/movement: is normal, is supple, without pain, no range of motions limitations, no nuchal rigidity. 19:38 Chest/axilla: Inspection: normal, Palpation: is normal, no crepitus, no tenderness. 19:38 Cardiovascular: Rate: normal, Rhythm: regular. 19:38 Respiratory: the patient does not display signs of respiratory distress, Respirations: normal, no use of accessory muscles, no retractions, no splinting, no tachypnea, labored breathing, is not present, Breath sounds: are clear throughout, no decreased breath sounds, no stridor, no wheezing. 19:38 Abdomen/GI: Inspection: abdomen appears normal, Palpation: abdomen is soft and non-tender, in all quadrants. 19:38 Back: pain, is absent, ROM is normal. 19:38 Musculoskeletal/extremity: Extremities: grossly normal except: noted in the right leg: pain, tenderness, Joints: All joints are normal except the right knee displays swelling, tenderness, abrasion across anterior knee, Weight bearing: can bear weight with assistance only. 19:38 Neuro: Orientation: to person, place \T\ time. Mentation: is normal. Vital Signs: 19:03 BP 153 / 83; Pulse 82; Resp 19; Temp 98.4; Pulse Ox 97% on R/A; Weight 88 kg; Height 5 aj ft. 3 in. (160.02 cm); 19:10 BP 165 / 79; Pulse 80; Resp 17; Temp 98.5; Pulse Ox 99% ; Pain 7/10; rr5 20:00 BP 161 / 81; Pulse 79; Resp 16; Pulse Ox 100% on R/A; rr5 21:00 BP 155 / 76; Pulse 75; Resp 17; Temp 98.6; Pulse Ox 99% ; rr5 19:03 Body Mass Index 34.37 (88.00 kg, 160.02 cm) aj Procedures: 21:00 Splinting: Splint applied to right knee using knee immobilizer, applied by nurse. cp Examined by me, post splint application: neurovascular intact, Patient tolerated well. MDM: 19:20 Patient medically screened. cp 20:00 Differential diagnosis: contusion, fracture, laceration, multiple trauma. cp 20:43 Data reviewed: vital signs, nurses notes, radiologic studies, plain films, Xrays of cp right femur and right tib/fib and right humerus and right foot reviewed and negative for acute fracture. 10/31 19:42 Counseling: I had a detailed discussion with the patient and/or guardian regarding: the cp historical points, exam findings, and any diagnostic results supporting the discharge/admit diagnosis, radiology results, the need for outpatient follow up, a orthopedic surgeon, to return to the emergency department if symptoms worsen or persist or if there are any questions or concerns that arise at home. Response to treatment: the patient's symptoms have mildly improved after treatment, and as a result, I will discharge patient. 10/30 19:26 Order name: XRAY Femur RIGHT; Complete Time: 20:59 cp 10/30 20:59 Interpretation: Report reviewed. cp 10/30 19:26 Order name: XRAY Humerus RIGHT; Complete Time: 20:59 cp 10/30 20:59 Interpretation: Report reviewed. 10/30 19:26 Order name: XRAY Tib Fib RIGHT; Complete Time: 20:59 cp 10/30 20:59 Interpretation: Report reviewed. 10/30 19:26 Order name: XRAY Foot RIGHT 3 View; Complete Time: 20:59 cp 10/30 20:59 Interpretation: Report reviewed. 10/30 20:25 Order name: Wound dressing; Complete Time: 20:51 cp 10/30 20:41 Order name: Knee Immobilizer; Complete Time: 21:42 cp 10/30 20:41 Order name: Rambo wrap-joint; Complete Time: 21:42 cp Administered Medications: 10/30 20:40 Drug: Tylenol 650 mg Route: PO; rr5 21:00 Follow up: Response: No adverse reaction rr5 20:52 Not Given (Patient Refused; as per her dilaysis doctor she cannot take ibuprofen. ED rr5 provider aware): Ibuprofen 800 mg PO once Disposition: 10/31 09:29 Co-signature as Attending Physician, Luis Sandra MD I agree with the assessment and juan plan of care. Disposition: 10/30/18 20:44 Discharged to Home. Impression: Fall on same level from slipping, tripping and stumbling, Pain in right knee - from fall, Pain in right upper arm - from fall, Pain in right ankle and joints of right foot - from fall, Pain in right hip - from fall. - Condition is Stable. - Discharge Instructions: Elastic Bandage and RICE, Knee Immobilizer, Knee Pain, Hip Pain, Ankle Pain. - Medication Reconciliation Form, Thank You Letter, Antibiotic Education, Prescription Opioid Use form. - Follow up: Sukhjinder Long MD; When: 2 - 3 days; Reason: left knee injury. Follow up: Sukhjinder Long MD; When: 2 - 3 days; Reason: right knee injury. - Problem is new. - Symptoms have improved. Signatures: Dispatcher [employer] EDRadha Christina RN Luis Yuen MD MD cha Page, Corey, PA PA cp Hugh Altamirano, RN RN rr5 Corrections: (The following items were deleted from the chart) 10/30 21:01 20:44 10/30/2018 20:44 Discharged to Home. Impression: Fall on same level from cp slipping, tripping and stumbling; Pain in right knee - from fall; Pain in right upper arm - from fall; Pain in right ankle and joints of right foot - from fall; Pain in right hip - from fall. Condition is Stable. Forms are Medication Reconciliation Form, Thank You Letter, Antibiotic Education, Prescription Opioid Use. Follow up: Sukhjinder Long; When: 2 - 3 days; Reason: left knee injury. Problem is new. Symptoms have improved. cp 21:03 21:10/30/2018 20:44 Discharged to Home. Impression: Fall on same level from rr5 slipping, tripping and stumbling; Pain in right knee - from fall; Pain in right upper arm - from fall; Pain in right ankle and joints of right foot - from fall; Pain in right hip - from fall. Condition is Stable. Discharge Instructions: Elastic Bandage and RICE, Knee Immobilizer, Knee Pain, Hip Pain, Ankle Pain. Forms are Medication Reconciliation Form, Thank You Letter, Antibiotic Education, Prescription Opioid Use. Follow up: Sukhjinder Long; When: 2 - 3 days; Reason: right knee injury. Problem is new. Symptoms have improved. cp
--- NOTE | 2018-10-30 20:45 | ER ---
Nurse's Notes [facility] Name: Cathi Zaldivar Age: 38 yrs Sex: Female : 1980 Arrival Date: 10/30/2018 Time: 18:31 Bed 18 Private MD: Partha Abraham Diagnosis: Fall on same level from slipping, tripping and stumbling;Pain in right knee-from fall;Pain in right upper arm-from fall;Pain in right ankle and joints of right foot-from fall;Pain in right hip-from fall Presentation: 10/30 19:01 Presenting complaint: Patient states: Report falling twice today on hard wood floor aj from standing position. Reports pain in entire right leg. Transition of care: patient was not received from another setting of care. Onset of symptoms was October 30, 2018. Risk Assessment: Do you want to hurt yourself or someone else? Patient reports no desire to harm self or others. Initial Sepsis Screen: Does the patient meet any 2 criteria? No. Patient's initial sepsis screen is negative. Does the patient have a suspected source of infection? No. Patient's initial sepsis screen is negative. Care prior to arrival: None. 19:01 Method Of Arrival: Wheelchair aj 19:01 Acuity: JESSICA 3 aj Triage Assessment: 19:03 General: Appears in no apparent distress. comfortable, Behavior is calm, cooperative, aj appropriate for age. Pain: Complains of pain in right leg. Neuro: Level of Consciousness is awake, alert, obeys commands, Oriented to person, place, time, situation, Appropriate for age. Respiratory: Airway is patent Respiratory effort is even, unlabored, Respiratory pattern is regular, symmetrical. Derm: Skin is intact, is healthy with good turgor, Skin is pink, warm \T\ dry. normal. Musculoskeletal: Reports pain in right leg. 19:10 Injury Description: Abrasion sustained to right knee is abrasion. 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 N/A - Irregular menses aj Historical: - Allergies: 19:03 ambien; aj 19:03 Codeine; aj 19:03 Demerol; aj 19:03 Lisinopril; aj 19:03 Nitrofurantoin Macrocrystal; aj 19:03 PENICILLINS; aj 19:03 Prolixin; aj - Home Meds: 19:03 amlodipine 10 mg tab 1 tab once daily [Active]; divalproex 500 mg Oral TbEC once daily aj [Active]; doxazosin 4 mg Oral tab twice a day [Active]; gabapentin 100 mg Oral cap as needed [Active]; hydralazine 50 mg Oral tab [Active]; Lantus 100 unit/mL Sub-Q soln as needed [Active]; metoprolol tartrate 25 mg Oral tab 1 tab 2 times per day [Active]; pravastatin Oral [Active]; Novolog 100 unit/mL Sub-Q soln [Active]; sertraline 50 mg Oral tab [Active]; tramadol 50 mg Oral tab 1 tab PRN [Active]; Vitamin D3 5,000 unit Oral tab daily [Active]; Zofran (as hydrochloride) 4 mg Oral tab as needed [Active]; - PMHx: 19:03 chronic kidney disease; cyclic vomiting syndrome; Diabetes - NIDDM; ENCEPHALOPATHY; aj HD-TTHSat; liver failure; PERIPHERAL NEUROPATHY; Gastroparesis; - PSHx: 19:03 right arm fistula; aj - Immunization history:: Adult Immunizations up to date. - Social history:: Smoking status: Patient/guardian denies using tobacco. - Ebola Screening: : Patient negative for fever greater than or equal to 101.5 degrees Fahrenheit, and additional compatible Ebola Virus Disease symptoms Patient denies exposure to infectious person Patient denies travel to an Ebola-affected area in the 21 days before illness onset No symptoms or risks identified at this time. Screenin:20 Abuse screen: Denies threats or abuse. Denies injuries from another. Nutritional rr5 screening: No deficits noted. Tuberculosis screening: No symptoms or risk factors identified. Fall Risk Fall in past 12 months (25 points). Total Rios Fall Scale indicates Low Risk Score (25-44 pts). Fall prevention measures have been instituted. Side Rails Up X 2 Placed close to Nursing Station Frequent Obs/Assesments occuring Family Present and informed to notify staff if they need to leave bedside As available Patient and Family Educated on Fall Prevention Program and strategies. Assessment: 19:10 General: Appears in no apparent distress. uncomfortable, Behavior is calm, cooperative, rr5 appropriate for age. Pain: Complains of pain in right leg Pain does not radiate. Pain currently is 7 out of 10 on a pain scale. Quality of pain is described as aching, Pain began suddenly, Is intermittent. Neuro: Level of Consciousness is awake, alert, obeys commands, Oriented to person, place, time, situation, Appropriate for age. Cardiovascular: Capillary refill < 3 seconds Patient's skin is warm and dry. Respiratory: Airway is patent Respiratory effort is even, unlabored, Respiratory pattern is regular, symmetrical. GI: No signs and/or symptoms were reported involving the gastrointestinal system. : No signs and/or symptoms were reported regarding the genitourinary system. EENT: No signs and/or symptoms were reported regarding the EENT system. Derm: Skin is intact, Skin temperature is warm. Musculoskeletal: Capillary refill < 3 seconds, Range of motion: intact in all extremities, Swelling present in right ankle Reports pain in right leg. 19:10 Musculoskeletal: Av fistula at right arm noted, right arm precaution. rr5 19:10 Derm: Wound noted right knee Wound is abrasion. rr5 20:00 Reassessment: Patient appears in no apparent distress at this time. Patient is alert, rr5 oriented x 3, equal unlabored respirations, skin warm/dry/pink. no complaints made awaiting for result. 21:00 Reassessment: Patient appears in no apparent distress at this time. Patient is alert, rr5 oriented x 3, equal unlabored respirations, skin warm/dry/pink. discharge instruction given and explained without complaints made. Patient states symptoms have improved. Vital Signs: 19:03 BP 153 / 83; Pulse 82; Resp 19; Temp 98.4; Pulse Ox 97% on R/A; Weight 88 kg; Height 5 aj ft. 3 in. (160.02 cm); 19:10 BP 165 / 79; Pulse 80; Resp 17; Temp 98.5; Pulse Ox 99% ; Pain 7/10; rr5 20:00 BP 161 / 81; Pulse 79; Resp 16; Pulse Ox 100% on R/A; rr5 21:00 BP 155 / 76; Pulse 75; Resp 17; Temp 98.6; Pulse Ox 99% ; rr5 19:03 Body Mass Index 34.37 (88.00 kg, 160.02 cm) ED Course: 18:31 Patient arrived in ED. rg4 18:32 Partha Abraham MD is Private Physician. rg4 19:02 Triage completed. aj 19:03 Arm band placed on left wrist. Patient placed in an exam room. aj 19:10 Patient has correct armband on for positive identification. Bed in low position. Call rr5 light in reach. 19:16 Hugh Altamirano, RN is Primary Nurse. rr5 19:20 Luis Ruvalcaba PA is PHCP. cp 19:20 Luis Sandra MD is Attending Physician. cp 20:11 XRAY Femur RIGHT In Process Unspecified. EDMS 20:11 XRAY Humerus RIGHT In Process Unspecified. EDMS 20:11 XRAY Tib Fib RIGHT In Process Unspecified. EDMS 20:11 XRAY Foot RIGHT 3 View In Process Unspecified. EDMS 20:35 Wound care: to abrasion, located on right knee was cleaned with dressed with Neosporin, rr5 Kerlix, Patient tolerated well. 20:42 Sukhjinder Long MD is Referral Physician. cp 20:55 Rambo wrap to right ankle Knee immobilizer applied on right knee. rr5 21:00 Referral Physician role handed off by Sukhjinder Long MD cp 21:00 Sukhjinder Long MD is Referral Physician. cp 21:00 No provider procedures requiring assistance completed. Patient did not have IV access rr5 during this emergency room visit. Administered Medications: 20:40 Drug: Tylenol 650 mg Route: PO; rr5 21:00 Follow up: Response: No adverse reaction rr5 20:52 Not Given (Patient Refused; as per her dilaysis doctor she cannot take ibuprofen. ED rr5 provider aware): Ibuprofen 800 mg PO once Outcome: 20:44 Discharge ordered by MD. cp 21:00 Discharged to home via wheelchair, with family. rr5 21:00 Condition: stable 21:00 Discharge instructions given to patient, family, Instructed on discharge instructions, follow up and referral plans. Demonstrated understanding of instructions, follow-up care. 21:03 Patient left the ED. rr5 Signatures: Dispatcher [employer] Radha Albert RN RN aj Page, Corey, PA PA cp Garcia, Rubi rg4 Hugh Altamirano RN RN rr5 Corrections: (The following items were deleted from the chart) 19:31 19:30 Accessed rr5 rr5
[2018-10-30] MEDS ORDERED: ACETAMINOPHEN 325 MG TABLET ONE (20:51)
[2018-10-30] MEDS ORDERED: IBUPROFEN 400 MG TAB ONE (20:51)
--- NOTE | 2018-10-30 20:54 | RAD REPORT ---
EXAM DESCRIPTION: RAD - Femur Right - 10/30/2018 8:10 pm CLINICAL HISTORY: Right leg pain FINDINGS: No fracture is seen. Vascular calcifications
--- NOTE | 2018-10-30 20:55 | RAD REPORT ---
EXAM DESCRIPTION: RAD - Humerus Right - 10/30/2018 8:10 pm CLINICAL HISTORY: Right arm pain FINDINGS: No fracture is seen
--- NOTE | 2018-10-30 20:56 | RAD REPORT ---
EXAM DESCRIPTION: RAD - Tib Fib Right - 10/30/2018 8:10 pm CLINICAL HISTORY: Right leg pain FINDINGS: No fracture is seen. Vascular calcifications
--- NOTE | 2018-10-30 20:58 | RAD REPORT ---
EXAM DESCRIPTION: RAD - Foot Right 3 View - 10/30/2018 8:10 pm CLINICAL HISTORY: Right foot pain FINDINGS: No fracture or dislocation is seen. Osteoporosis Vascular calcifications
[2018-10-30 21:32] VITALS: BP 165/79; TEMP 98.5; O2SAT 99
== END 2018-10-30 21:03 | disposition home or self-care (01) ==
LOC: ER 18:29
DX: M25.561 Pain in right knee (principal); M25.551 Pain in right hip; M25.571 Pain in right ankle and joints of right foot; M79.621 Pain in right upper arm; W01.0XXA Fall on same level from slipping, tripping and stumbling without subsequent striking against object, initial encounter; Y93.01 Activity, walking, marching and hiking; Y92.9 Unspecified place or not applicable; E11.22 Type 2 diabetes mellitus with diabetic chronic kidney disease; N18.6 End stage renal disease; G62.9 Polyneuropathy, unspecified; Z79.4 Long term (current) use of insulin; Z88.0 Allergy status to penicillin; Z88.5 Allergy status to narcotic agent; Z88.8 Allergy status to other drugs, medicaments and biological substances; Z99.2 Dependence on renal dialysis
CPT/HCPCS: 99284

== ENCOUNTER 2019-03-04 14:33 | Emergency (ER) | payer OTHER ==
--- OUTSIDE RECORDS SUMMARY | 2019-03-04 14:36 | XMS REPORT | Clinical Summary ---
:1980 Author Organization [facility] Address [address] [place] [address] Care Team Providers Name Role Phone Sharpless [...] mouth 0 Active MG tablet daily. hydrALAZINE (APRESOLINE) Take 100 mg by 0 Active 100 MG tablet mouth 3 (three) times daily. magnesium oxide (MAG-OX) Take 400 mg by 0 Active 400 mg tablet mouth daily. metoclopramide HCl Take 10 mg by mouth 0 Active (REGLAN) 10 MG tablet 3 (three) times daily. meclizine (ANTIVERT) 25 Take 12.5 mg by 0 Active MG tablet mouth 3 (three) times daily as needed. sertraline (ZOLOFT) 100 Take by mouth 0 Active MG tabletIndications: daily. Anxiety with Depression medroxyPROGESTERone Inject 0 Active (DEPO-PROVERA) 150 mg/mL intramuscularly injection every 3 (three) months. insulin glargine Inject 5 Units 10 mL 0 Active (LANTUS) 100 unit/mL subcutaneously 7 injection every morning Use as directed . Active Problems Problem Noted Date Liver failure, [...] Abstract Macario Mccloud 03/08/2018 Abstract Macario Mccloud after 03/03/2018 Social History Tobacco Use Types Packs/Day Years [...] 03/08/2018 10:25 AM CDT Plan of Treatment Not on file Results Not on fileafter 03/03/2018 Insurance Payer Benefit Plan / Group Subscriber ID Type Phone Address MEDICARE MEDICARE A B xxxxxxxxxx Medicare MEDICAID MEDICAID [facility] xxxxxxxxx Medicaid Advance Directives For more information, please contact:[address] [place], [place] [phone] Code Status Date Activated Date Inactivated Comments Full Code 01/03/2017 1:56 AM 01/07/2017 5:21 PM This code status was determined by: Patient
--- OUTSIDE RECORDS SUMMARY | 2019-03-04 15:02 | XMS REPORT | Continuity of Care Document ---
:1980 Author Organization [employer] [facility] Care Team Providers Name Role Phone [employer] [facility] Unavailable Unavailable Problems Problem Status Onset Classification Date Comments Source Date Reported NEW EVALUATION Active [address] Anemia Active Finding 10/07/[address] [facility] Chronic kidney Active Finding 10/07/[address] [facility] disease 018 [facility] [place] [id number] Active Finding 10/07/[address] [facility] [facility] [place] Chronic kidney Active Finding 10/07/[address] [facility] disease, stage 5, 018 [facility] [place] Anemia in chronic Active Finding 10/07/[address] [facility] kidney disease 018 [facility] [place] Intractable nausea Active Finding 10/07/[address] [facility] and vomiting 018 [facility] [place] COPD (chronic Active Finding 10/07/[address] [facility] obstructive 018 [facility] [place] Gastroesophageal Active Finding 10/07/[address] [facility] reflux disease 018 [facility] [place] Chest pain Active Finding 10/07/[address] [facility] [facility] [place] JAYLA (obstructive Active Finding 10/07/[address] [facility] sleep apnea) 017 [facility] [place] Diabetes mellitus Active Finding 10/07/[address] [facility] [address] type II, [facility]17 [facility] uncontrolled [place] Cardiomegaly Active Finding 10/07/[address] [facility] [facility] [place] Diabetes mellitus Active Finding 10/07/[address] [facility] [facility] [place] CHF (congestive Active Finding 10/07/[address] [facility] heart failure) 017 [facility] Renal insufficiency Active Finding 10/07/[address] [facility] [facility] [place] Intractable Active Finding 10/07/[address] [facility] vomiting 017 [facility] [place] Hypertension Active Finding 10/07/[address] [facility] [facility] [place] Diabetic Active Finding 10/07/[address] [facility] gastroparesis 017 [facility] Acute dyspnea Active Finding 10/07/[address] [facility] [facility] [place] Angioedema Active Finding 10/07/[address] [facility] [facility] [place] Edema Active Finding 10/07/[address] [facility] [facility] [place] Hyperglycemia Active Finding 10/07/[address] [facility] [facility] [place] Chronic renal Active Finding 10/07/[address] [facility] [facility] disease 017 [facility] [place] Bipolar 1 disorder Active Finding 10/07/[address] [facility] [facility] [place] Cellulitis of foot, Active Finding 10/07/[address] [facility] right 017 [facility] [place] Foreign body in Active Finding 10/07/[address] [facility] right foot 017 [facility] [place] Severe hypertension Active Finding 10/07/[address] [facility] [facility] [place] Abdominal pain Active Finding 10/07/[address] [facility] [facility] [place] Hypomagnesemia Active Finding 10/07/[address] [facility] [facility] [place] CONGESTION AMD Active [facility] DIARRHEA 017 [facility] ACUTE RESP FAILURE Active [address] SOB/SWELLING Active [address] CHF/RENAL DISEASE Active [address] UTI (urinary tract Active Finding 10/07/[address] [facility] infection) 016 [facility] Obstructive sleep Active Finding 10/07/[address] [facility] apnea 016 [facility] Schizoaffective Active Finding 10/07/[address] [facility] [facility] disorder 016 [facility] [place] Seizure disorder Active Finding 10/07/[address] [facility] [facility] [place] Tobacco abuse Active Finding 10/07/[address] [facility] [facility] [place] Obesity Active Finding 10/07/[address] [facility] [facility] [place] Hypokalemia Active Finding 10/07/[address] [facility] [facility] [facility] [place] Insomnia Active Finding 10/07/[address] [facility] [facility] [place] Uncontrolled Active Finding 10/07/[address] diabetes mellitus 016 [facility] [place] Kidney failure Active Finding 10/07/[address] [facility] [facility] [place] Nausea Active Finding 10/07/[address] [facility] [facility]16 [facility] [place] Vomiting Resolved Finding 10/07/[address] [facility] [facility] [facility]15 [facility] Discharge 06/28/2014 [facility] Diagnosis: 015 [facility] ABDOMINAL PAIN, Active [facility] SEIZURES 014 [facility] Center ABD PAIN Active [facility] 013 GASTROPERISIS Active [address] ABDOMINAL PAIN Active [facility] 012 NAUSEA, VOMITING Active [place] [id number] Nausea and vomiting Resolved Problem 08/02/2016 [facility] (disorder) [address] [place] [address] VOMITTING Active [address] N/V INABILITY TO Active [facility] TOLERATE PO [address] [place] [address] VOMITTING, HIGH Active [facility] BLOOD SUGAR [address] [place] [address] MRSA Active Problem 03/16/2012 - Elbow wound [facility] 012 2Problem added by Discern Expert. Medical [facility] Methicillin Active Problem 08/02/2016 09/01/11 - Elbow wound [facility] resistant 012 Problem added by Discern Expert. [facility] ELBOW Active [facility] ABSCESS/HYPERGLYCEM [address] [place] [address] VOMITING, BLOOD Active [facility] SUGAR READINGS HIGH [address] [place] [address] Hypokalemia Active 03/04/2 Problem 03/16/[address],[facility] Hypokalemia Resolved Problem 08/02/2016 [facility] (disorder) [address] [place] [address],[facility] Disorder of Resolved Problem 08/02/2016 [facility] magnesium [facility] Medical metabolism Center (disorder) Hyperglycemia Inactive Problem 03/16/[address],[facility] Hyperglycemia Resolved Problem 08/02/2016 [facility] (disorder) [address] [place] [address],[facility] DKA (diabetic Resolved Problem 04/22/2013 [facility] ketoacidoses) [address] [place] [address],[facility] Ketoacidosis in Resolved Problem 08/02/2016 [facility] diabetes mellitus [facility] Medical (disorder) Center DKA Active [address] VOMITING Active [address] Hypoglycemia Inactive Problem 04/22/2013 [facility] (disorder) Hypomagnesemia Active Problem 04/22/2013 [facility] Hypertension Active Problem 03/16/2012 [facility] Hypoglycemia Inactive Problem 03/16/2012 [facility] Nausea and vomiting Active Problem 03/16/2012 [facility] Diabetes mellitus Resolved Problem 08/02/2016 [facility] (disorder) [facility] Gastroparesis Resolved Problem 08/02/2016 [facility] (disorder) [facility] Hypertensive Resolved Problem 08/02/2016 [facility] disorder, systemic Medical arterial (disorder) Center,[facility] Psychiatric Resolved Problem 08/02/2016 [facility] behavioral Medical disability Center (finding) Seizure (finding) Resolved Problem 08/02/2016 [facility] Final: Acute 08/02/2016 [facility] respiratory Medical failure, Center unspecified whether with hypoxia or hypercapnia Nausea and vomiting Inactive Finding 10/07/[address] [facility] Abdominal Inactive Finding 10/07/[address] [facility] discomfort [facility] Diabetes mellitus Inactive Finding 10/07/[address] [facility] type 2 [facility] Drug overdose Inactive Finding 10/07/[address] [facility] Gastroparesis Inactive Finding 10/07/[address] [facility] Altered mental Inactive Finding 10/07/[address] status AMS [facility] [place] Nicotine dependence Active Finding 10/07/[address] [facility] Severe allergic Active Finding 10/07/[address] [facility] [facility] reaction [facility] [place] Diabetic Resolved Finding 10/07/[address] ketoacidosis [facility] [place] Anxiety Resolved Finding 10/07/[address] [facility] Back pain Active Finding 10/07/[address] [facility] Depression Resolved Finding 10/07/[address] [facility] Neuropathy Active Finding 10/07/[address] [facility] Personality Active Finding 10/07/[address] disorder [facility] Pyelonephritis Active Finding 10/07/[address] [facility] Thrombocytopenia Active Finding 10/07/[address] [facility] Weakness Active Finding 10/07/[address] [facility] generalized [facility] Psychotic Active Finding 10/07/[address] [facility] depression [facility] Ulcer of toe due to Active Finding 10/07/[address] [facility] [facility] diabetes [facility] [place] Joint pain Active Finding 10/07/[address] [facility] Smoker Active Finding 10/07/[address] [facility] DMI KETOACD Active [facility] OTHER GENERAL Active [facility] SYMPTOMS Medical [place] HEART FAILURE, Active [facility] UNSPECIFIED Medical [place] ACUTE RESPIRATORY Active [facility] FAILURE, UNSP W Medical HYPOXI Center Medications Medication Details Route Status Patient Ordering Order Source Instructions Provider Date Spironolactone TWICE DAILY Active [place] [facility] 2017 [facility] Bacitracin TWICE DAILY Active [facility] St[facility] Zinc/Polymyxin B 2018 [facility] [place] Cholecalciferol DAILY Active [place] [facility] (Vitamin D3) 2017 [facility] Pantoprazole DAILY Active [place] [facility] 2017 [facility] Brimonidine THREE TIMES A Active [facility] DAY 2017 [facility] [place] Hydralazine TWICE DAILY Active [facility] 2017 [facility] [place] Brinzolamide THREE TIMES A Active [facility] DAY 2017 [facility] [place] Furosemide TWICE DAILY Active [facility] 2018 [facility] [place] Levobunolol Hcl TWICE DAILY Active [facility] [place] Gabapentin TWICE DAILY [facility] [place] Pravastatin DAILY Active [facility] Sodium 2018 [facility] [place] Prednisol Acet THREE TIMES A Active [facility] 1% Opth DAY 2018 [facility] [place] Metoprolol DAILY Active [facility] Succinate 2018 [facility] [place] Latanoprost DAILY Active [facility] Ophth 2018 [facility] [place] Insulin Aspart NEEDED PRN Active [facility] For high 2017 [facility] blood sugar [place] Insulin NEEDED PRN Active [facility] Glargine,Hum.Rec For high 2017 [facility] blood sugar [place] Hydralazine THREE TIMES A Active [place] 01/17/ [facility] DAY [facility] [place] Doxazosin TWICE DAILY Active [place] [facility] 2017 [facility] [place] Metoprolol TWICE DAILY Active [place] [facility] Tartrate 2017 [facility] [place] Amlodipine DAILY Active [place] [facility] 2017 [facility] [place] Ondansetron Hcl Q6H PRN For Active [place] [facility] Nausea / 2017 [facility] Vom[facility] [place] Amlodipine DAILY Active St[facility] 2017 [facility] [place] Amlodipine DAILY Active [place] [facility] 2017 [facility] [place] Metoclopramide THREE TIMES A Active [place] 10/18/ St[facility] Hcl DAY 2016 [facility] [place] Ondansetron Hcl Q6H PRN For Active [place] [facility] Nausea / 2017 [facility]om[facility] [place] Tramadol Hcl Q8H PRN For Active [place] 10/18/ St[facility] Abdominal 2017 [facility] Pain [place] Furosemide TWICE DAILY Active [place] [facility] 2017 [facility] [place] Spironolactone TWICE DAILY Active [place] [facility] 2017 [facility] [place] Bumetanide TWICE DAILY Active [place] 04/03/ [facility] BEFORE MEALS 2017 [facility] [place] Insulin Glargine DAILY Inactive [place] [facility] Human 2017 [facility] [place] Metoprolol TWICE DAILY Active [place] [facility] Tartrate 2017 [facility] [place] Amlodipine DAILY Active St[facility] 2017 [facility] [place] Furosemide TWICE DAILY Active St. 2017 [facility] [place] Spironolactone TWICE DAILY Active St. 2017 [facility] [place] Hydralazine THREE TIMES A Active [place] [facility] DAY 2017 [facility] [place] Doxazosin TWICE DAILY Active [place] [facility] 2017 [facility] [place] Metoprolol TWICE DAILY Active [place] [facility] Tartrate 2017 [facility] [place] Furosemide TWICE DAILY Active [place] [facility] 2017 [facility] [place] Spironolactone DAILY Active [place] [facility] 2017 [facility] [place] Potassium DAILY Active [place] [facility] Chloride 2017 [facility] [place] Clonidine Hcl TWICE DAILY Active St. 2017 [facility] [place] Divalproex DAILY Active St[facility] Sodium 2017 [facility] [place] Furosemide TWICE DAILY Active St[facility] 2017 [facility] [place] Insulin Aspart BEFORE MEALS Active St. AND AT 2017 [facility] BEDTIME [place] Insulin DAILY Active St[facility] Glargine,Hum.Rec 2017 [facility]Anlog [place] Metoprolol DAILY Active St[facility] Tartrate 2017 [facility] [place] Spironolactone DAILY Active St. 2017 [facility] [place] Sertraline DAILY Active St[facility] 2017 [facility] [place] Furosemide DAILY Active St[facility] 2017 [facility] [place] Hydroxyzine Hcl THREE TIMES A Active St[facility] DAY 2017 [facility] [place] Hydralazine THREE TIMES A Active St[facility] DAY 2017 [facility] [place] Furosemide 40 MG 40 mg=1 tab, Active [place] Oral Tablet PO, Daily, # 2017 Medical 30 tab, 0 Center Refill(s), Pharmacy: [facility] [id number] Bumex 0.5 mg, No Longer [place] Route: PO, Active 2016 Medical Drug form: Center TAB, Daily, Dosing Weight 92.273, kg, Start date: 07/30/16 9:00:00 METAL SPINNER, Duration: 30 day, Stop date: 08/28/16 9:00:00 METAL SPINNER Lasix 40 mg, 1 tab, No Longer [place] Route: PO, Active 2016 Medical Drug form: Center TAB, Daily, Dosing Weight 92.273, kg, Priority: NOW, Start date: 07/29/16 14:05:00 METAL SPINNER, Duration: 30 day, Stop date: 08/28/16 9:00:00 CSTNotes: (Same as: Lasix) May cause GI upset. Give with food or milk. Hydralazine 10 mg, 0.5 No Longer [place] mL, Route: Active 2016 Medical IVP, Drug Center form: INJ, Q6H, Dosing Weight 92.273, kg, PRN Elevated BP, Start date: 07/29/16 0:05:00 METAL SPINNER, Duration: 30 day, Stop date: 08/28/16 0:04:00 CSTNotes: (Same as: Apresoline) Push over 5 minutes sodium chloride 1,000 mL, No Longer [place] 0.9% 1000 ml INJ Rate: 125 Active 2017 Medical 1,000 mL ml/hr, Infuse Center over: 8 hr, Route: IV, Dosing Weight 92.273 kg, Total Volume: 1,000, Start date: 07/26/16 12:26:00 METAL SPINNER, Duration: 30 day, Stop date: 08/25/16 12:25:00 METAL SPINNER Sodium Chloride 500 mL, 500 Inactive [place] 0.154 MEQ/ML ml/hr, Infuse 2017 Medical Injectable Over: 1 hr, Center Solution Route: IV, 500, Drug form: INJ, ONCE, Priority: STAT, Dosing Weight 92.273 kg, Start date: 07/26/16 7:30:00 METAL SPINNER, Duration: 1 doses or times, Stop date: 07/26/16 7:30:00 METAL SPINNER Insulin regular 8 unit, 0.08 Inactive [place] mL, Route: 2016 Medical SUB-, Drug Center form: SOLN, ONCE, Dosing Weight 92.273, kg, Priority: NOW, Start date: 07/25/16 2:39:00 METAL SPINNER, Stop date: 07/25/16 2:39:00 CSTNotes: (Same as: Humulin R) Roll in palms of hands gently; Do not shake vigorously. "single patient use only" (Restricted to patients requiring a dose > 60 units) WASTE: F/P - Black; E - Municipal Trash Bin Stable for 28 days at room temperature Expires in days from _Date Insulin, Aspart, 10 unit, 0.1 Inactive [facility] Human mL, Route: 2016 Medical SUB-Q, Drug Center form: SOLN, ONCE, Dosing Weight 92.273, kg, Start date: 07/25/16 1:31:00 METAL SPINNER, Stop date: 07/25/16 1:31:00 CSTNotes: Roll in palms of hands gently; Do not shake vigorously. (Same as: NovoLOG) "single patient use only" WASTE: F/P - Black; E - Municipal Trash Bin Stable for 28 days at room temperature. Expires in days from _Date Insulin, Aspart, 5 unit, 0.05 Inactive [facility] Human mL, Route: 2016 Medical SUB-, Drug Center form: SOLN, ONCE, Dosing Weight 92.273, kg, Priority: NOW, Start date: 07/24/16 23:42:00 METAL SPINNER, Stop date: 07/24/16 23:42:00 CSTNotes: Roll in palms of hands gently; Do not shake vigorously. (Same as: NovoLOG) "single patient use only" WASTE: F/P - Black; E - Municipal Trash Bin Stable for 28 days at room temperature. Expires in days from _Date Insulin, Aspart, 5 unit, 0.05 Inactive [facility] Human mL, Route: 2017 Medical SUB-Q, Drug Center form: SOLN, ONCE, Dosing Weight 92.273, kg, Start date: 07/24/16 21:28:00 METAL SPINNER, Stop date: 07/24/16 21:28:00 CSTNotes: Roll in palms of hands gently; Do not shake vigorously. (Same as: NovoLOG) "single patient use only" WASTE: F/P - Black; E - Municipal Trash Bin Stable for 28 days at room temperature. Expires in days from _Date atorvastatin 40 mg, 1 tab, No Longer [place] Route: PO, Active 2016 Medical Drug form: Center TAB, Bedtime, Dosing Weight 92.273, kg, Start date: 07/24/16 21:00:00 METAL SPINNER, Duration: 30 day, Stop date: 08/22/16 21:00:00 CSTNotes: (Same as: Lipitor) divalproex 1,000 mg, 2 No Longer [place] sodium tab, Route: Active 2016 Medical PO, Drug Center form: ERTAB, Bedtime, Start date: 07/24/16 21:00:00 METAL SPINNER, Duration: 30 day, Stop date: 08/22/16 21:00:00 CSTNotes: (Same as: Depakote ER) Once daily dosing; indicated for migraines. Divalproex sodium extended-rele ase tab. Do not chew or crush. "Do Not Crush" Lasix 40 mg, 4 mL, No Longer [place] Route: IVP, Active 2016 Medical Drug form: Center INJ, Q8H, Dosing Weight 92.273, kg, Start date: 07/24/16 16:00:00 METAL SPINNER, Duration: 30 day, Stop date: 08/23/16 8:00:00 CSTNotes: (Same as: Lasix) MEDICATION WASTE Product Size: 40 mg Product Wasted: ___ mg Tylenol 650 mg, 20.3 No Longer [place] mL, Route: Active 2016 Medical PO, Drug Center form: LIQ, Q4H, Dosing Weight 92.273, kg, PRN Pain 1-3/Temp > 100.4 F, Start date: 07/24/16 15:52:00 METAL SPINNER, Duration: 30 day, Stop date: 08/23/16 15:51:00 CSTNotes: Max acetaminophen =4000mg/day (4 gm/day). (Same as: Tylenol) Bupropion 150 mg, 1 No Longer [place] tab, Route: Active 2017 Medical PO, Drug Center form: ERTAB, Daily, Dosing Weight 92.273, kg, Start date: 07/24/16 9:00:00 METAL SPINNER, Duration: 30 day, Stop date: 08/22/16 9:00:00 METAL SPINNER 24 HR Divalproex 500 mg, 1 No Longer [place] Sodium 500 MG tab, Route: Active 2016 Medical Extended Release PO, Drug Center Tablet form: ERTAB, [Depakote] QAM, Dosing Weight 92.273, kg, Start date: 07/24/16 9:00:00 METAL SPINNER, Duration: 30 day, Stop date: 08/22/16 9:00:00 CSTNotes: (Same as: Depakote ER) gabapentin 300 300 mg, 1 No Longer [facility] MG Oral Capsule cap, Route: Active 2016 Medical PO, Drug Center form: CAP, BID, Dosing Weight 92.273, kg, Start date: 07/24/16 9:00:00 METAL SPINNER, Duration: 30 day, Stop date: 08/22/16 17:00:00 CSTNotes: (Same as: Neurontin) Aspirin 81 MG 81 mg, 1 tab, No Longer [place] Chewable Tablet Route: PO, Active 2016 Medical Drug form: [place]AB, Daily, Dosing Weight 92.273, kg, Start date: 07/24/16 9:00:00 METAL SPINNER, Duration: 30 day, Stop date: 08/22/16 9:00:00 CSTNotes: Take with food. Lasix 40 mg, 4 mL, Inactive [place] Route: IVP, 2016 Medical Drug form: Center INJ, Q12H, Dosing Weight 92.273, kg, Start date: 07/24/16 9:00:00 METAL SPINNER, Duration: 30 day, Stop date: 08/22/16 21:00:00 CSTNotes: (Same as: Lasix) MEDICATION WASTE Product Size: 40 mg Product Wasted: ___ mg Zoloft 200 mg, 2 No Longer [place] tab, Route: Active 2017 Medical PO, Drug Center form: TAB, Daily, Dosing Weight 92.273, kg, Start date: 07/24/16 9:00:00 METAL SPINNER, Duration: 30 day, Stop date: 08/28/16 9:00:00 CSTNotes: (Same as: Zoloft) Protonix 40 mg, 1 tab, No Longer [place] Route: PO, Active 2016 Medical Drug form: Center ECTAB, Daily, Dosing Weight 92.273, kg, Start date: 07/24/16 9:00:00 METAL SPINNER, Duration: 30 day, Stop date: 08/22/16 9:00:00 CSTNotes: Tablet should not be chewed or crushed. (Same as: Protonix) metoprolol 100 mg, 2 No Longer [facility] extended release tab, Route: Active 2017 Medical PO, Drug Center form: ERTAB, Daily, Start date: 07/24/16 9:00:00 METAL SPINNER, Duration: 30 day, Stop date: 08/22/16 9:00:00 METAL SPINNER Insulin Glargine 40 unit, 0.4 No Longer [place] 100 UNT/ML mL, Route: Active 2016 [facility] Injectable SUB-Q, Drug [place] Solution form: SOLN, [Lantus] Daily, Dosing Weight 92.273, kg, Start date: 07/24/16 9:00:00 METAL SPINNER, Duration: 30 day, Stop date: 08/22/16 9:00:00 CSTNotes: Same as: Lantus) Do not hold insulin without contacting prescriber WASTE: F/P - Black; E - Municipal Trash Bin Hydralazine 100 mg, 2 No Longer [place] Hydrochloride tab, Route: Active 2017 Medical 100 MG Oral PO, Drug Center Tablet form: TAB, BID, Dosing Weight 92.273, kg, Start date: 07/24/16 9:00:00 METAL SPINNER, Duration: 30 day, Stop date: 08/22/16 17:00:00 CSTNotes: (Same as: Apresoline) May interfere w/enteral feedings Take With Food Ondansetron 4 mg, 2 mL, Inactive [facility] Route: IVP, 2017 Medical Drug form: Center INJ, ONCE, Dosing Weight 92.273, kg, Priority: STAT, Start date: 07/24/16 8:50:00 METAL SPINNER, Stop date: 07/24/16 8:50:00 CSTNotes: (Same as: Zoshankar) MEDICATION WASTE Product Size: 4 mg Product Wasted: ___ mg Morphine 4 mg, 1 mL, Inactive [place] Route: IVP, 2016 Medical Drug form: [place] SOLN, ONCE, Dosing Weight 92.273, kg, Priority: STAT, Start date: 07/24/16 8:50:00 METAL SPINNER, Stop date: 07/24/16 8:50:00 CSTNotes: (Same as:MORPhine Sulfate) Insulin, Aspart, 2 unit, 0.02 No Longer [facility] Human mL, Route: Active 2016 Medical SUB-Q, Drug Center form: SOLN, TID-Before Meals, Dosing Weight 92.273, kg, Start date: 07/24/16 7:30:00 METAL SPINNER, Duration: 30 day, Stop date: 08/22/16 16:30:00 CSTNotes: Roll in palms of hands gently; Do not shake vigorously. (Same as: NovoLOG) "single patient use only" WASTE: F/P - Black; E - Municipal Trash Bin Stable for 28 days at room temperature. Expires in days from _Date Dilaudid 0.5 mg, 0.25 Inactive [facility] mL, Route: 2016 Medical IVP, Drug Center form: INJ, ONCE, Dosing Weight 92.273, kg, Priority: STAT, Start date: 07/24/16 5:28:00 METAL SPINNER, Stop date: 07/24/16 5:28:00 CSTNotes: Same as Dilaudid Insulin, Aspart, 4 unit, 0.04 No Longer [facility] Human mL, Route: Active 2016 Medical SUB-Q, Drug Center form: SOLN, TID-Before Meals, Dosing Weight 92.273, kg, PRN Blood Glucose Results, Start date: 07/24/16 2:40:00 METAL SPINNER, Duration: 30 day, Stop date: 08/23/16 2:39:00 CSTNotes: Roll in palms of hands gently; Do not shake vigorously. (Same as: NovoLOG) "single patient use only" WASTE: F/P - Black; E - Municipal Trash Bin Stable for 28 days at room temperature. Expires in days from _Date Glucagon 1 mg, Route: No Longer [facility] IM, Drug Active 2016 Medical form: [place] PDR/INJ, PRN, Dosing Weight 92.273, kg, PRN Blood Glucose Results, Start date: 07/24/16 2:40:00 METAL SPINNER, Duration: 30 day, Stop date: 08/23/16 2:39:00 METAL SPINNER Dextrose 50% 25 gm, 50 mL, No Longer [facility] Syringe Route: IVP, Active 2016 Medical Drug Form: [place] INJ, Dosing Weight 92.273, kg, PRN, PRN Blood Glucose Results, Start date: 07/24/16 2:40:00 METAL SPINNER, Duration: 30 day, Stop date: 08/23/16 2:39:00 METAL SPINNER Docusate 100 mg, 1 No Longer [facility] cap, Route: Active 2016 Medical PO, Drug Center form: CAP, BID, Dosing Weight 92.273, kg, PRN Constipation, Start date: 07/24/16 1:20:00 METAL SPINNER, Duration: 30 day, Stop date: 08/23/16 1:19:00 CSTNotes: (Same as: Colace) (Do Not Crush) Ondansetron 4 mg, 2 mL, No Longer [facility] Route: IVP, Active 2016 Medical Drug form: [place] INJ, Q6H, Dosing Weight 92.273, kg, PRN Nausea & Vomiting, Start date: 07/24/16 1:20:00 METAL SPINNER, Duration: 30 day, Stop date: 08/23/16 1:19:00 CSTNotes: (Same as: Zofran) MEDICATION WASTE Product Size: 4 mg Product Wasted: ___ mg Lasix 40 mg, 4 mL, Inactive [place] Route: IVP, 2016 Medical Drug form: [place] INJ, ONCE, Dosing Weight 92.273, kg, Priority: STAT, Start date: 07/24/16 0:01:00 METAL SPINNER, Stop date: 07/24/16 0:01:00 CSTNotes: (Same as: Lasix) MEDICATION WASTE Product Size: 40 mg Product Wasted: ___ mg Aspirin 324 mg, 4 No Longer [place] tab, Route: Active 2017 Medical CHEW, Drug Center form: [place], ONCE, Dosing Weight 92.273, kg, Priority: STAT, Start date: 07/23/16 23:48:00 METAL SPINNER, Stop date: 07/23/16 23:48:00 CSTNotes: Take with food. Prednisone 40 mg, 2 tab, Inactive [place] Route: PO, 2017 Medical Drug form: Center TAB, ONCE, Dosing Weight 92.273, kg, Priority: STAT, Start date: 07/23/16 23:02:00 METAL SPINNER, Stop date: 07/23/16 23:02:00 CSTNotes: Take with food. Albuterol 0.833 3 ml, Route: No Longer [place] MG/ML / NEB, Drug Active 2016 Medical Ipratropium Form: SOLN, Center [facility] 0.167 Dosing Weight MG/ML Inhalant 92.273, kg, Solution PRN, PRN [DuoNeb] Respiratory Protocol, Start date: 07/23/16 22:09:00 METAL SPINNER, Duration: 30 day, Stop date: 08/22/16 22:08:00 [...] Injectable # 10 mL, 0 Center Solution Refill(s) [Lantus] metoprolol 100 100 mg=1 tab, Active [place] mg oral tablet, PO, Daily, # 2016 Medical extended release 30 tab, 0 Center Refill(s) Hydralazine 100 mg=1 tab, Active [place] Hydrochloride PO, BID, # 60 2016 Medical 100 MG Oral tab, 0 Center Tablet Refill(s) 200 ACTUAT 2 puff, Active [facility] Albuterol 0.09 INHALATION, 2016 Medical MG/ACTUAT PRN, PRN as Center Metered Dose needed for Inhaler wheezing, use as needed for shortness of breath or wheezing, # 8 gm, 0 Refill(s) Aspirin 81 MG 81 mg=1 tab, Active [place] Chewable Tablet PO, Daily, # 2016 Medical 30 tab, 0 Center Refill(s) Hydroxyzine 50 mg=1 cap, Active [place] Hydrochloride 50 PO, TID, X 30 2016 Medical MG Oral Capsule day, # 90 Center cap, 0 Refill(s) losartan 25 mg 25 mg=1 tab, Active [facility] oral tablet PO, Daily, # 2015 Medical 30 tab, 0 Center Refill(s) Lasix 80 mg, 2 tab, Inactive [facility] Route: PO, 2015 Medical Drug form: Center TAB, BID, Dosing Weight 103.182, kg, Start date: 06/15/16 9:00:00 METAL SPINNER, Duration: 30 day, Stop date: 07/14/16 17:00:00 CSTNotes: (Same as: Lasix) May cause GI upset. Give with food or milk. Magnesium Oxide 400 mg, 1 Inactive [facility] tab, Route: 2015 Medical PO, Drug Center form: TAB, ONCE, Dosing Weight 103.182, kg, Start date: 06/13/16 7:36:00 METAL SPINNER, Stop date: 06/13/16 7:36:00 CSTNotes: (Same as: Mag-Ox 400) Magnesium oxide [id number] elemental magnesium Dose=____mg magnesium oxide (___mg elemental magnesium) Magnesium Oxide 800 mg, 2 Inactive [facility] tab, Route: 2015 Medical PO, Drug Center form: TAB, ONCE, Dosing Weight 103.182, kg, Start date: 06/13/16 3:47:00 METAL SPINNER, Stop date: 06/13/16 3:47:00 CSTNotes: (Same as: Mag-Ox 400) Magnesium oxide [id number] elemental magnesium Dose=____mg magnesium oxide (___mg elemental magnesium) 24 HR Nifedipine 30 mg, 1 tab, Inactive [place] 30 MG Extended Route: PO, 2016 Medical Release Tablet Drug form: [place] [Procardia] ERTAB, ONCE, Dosing Weight 103.182, kg, Priority: NOW, Start date: 06/12/16 22:33:00 METAL SPINNER, Stop date: 06/12/16 22:33:00 CSTNotes: (Same as: Adalat CC, Procardia XL) Give on empty stomach. Take 1 hour before or 2 hours after meal; "Avoid grapefruit and grapefruit juice". Do not crush hydrALAZINE 50 100 mg, 2 No Longer [place] mg oral tablet tab, Route: Active 2015 Medical PO, Drug Center form: TAB, TID, Dosing Weight 86.364, kg, Priority: NOW, Start date: 06/12/16 19:08:00 METAL SPINNER, Duration: 30 day, Stop date: 07/12/16 17:00:00 CSTNotes: (Same as: Apresoline) May interfere w/enteral feedings Take With Food Wellbutrin XL 150 mg, 1 No Longer [place] tab, Route: Active 2015 Medical PO, Drug Center form: ERTAB, Daily, Start date: 06/12/16 18:00:00 METAL SPINNER, Duration: 30 day, Stop date: 07/12/16 9:00:00 CSTNotes: (Same as: Wellbutrin XL) "Do Not Crush" Norvasc 10 mg, 1 tab, Inactive [place] Route: PO, 2016 Medical Drug form: Center TAB, Daily, Start date: 06/12/16 18:00:00 METAL SPINNER, Duration: 30 day, Stop date: 07/12/16 9:00:00 CSTNotes: (Same as: Norvasc) Insulin Glargine 30 unit, 0.3 No Longer [place] 100 UNT/ML mL, Route: Active 2015 Medical Injectable SUB-Q, Drug Center Solution form: SOLN, [Lantus] Daily, Dosing Weight 86.364, kg, Start date: 06/12/16 10:00:00 METAL SPINNER, Duration: 30 day, Stop date: 07/11/16 10:00:00 CSTNotes: Same as: Lantus) Do not hold insulin without contacting prescriber WASTE: F/P - Black; E - Municipal Trash Bin 1 ML IM, qMonth, 0 Active [place] paliperidone Refill(s) 2015 Medical palmitate 156 Center MG/ML Prefilled Syringe [Invega] amLODIPine 10 mg 10 mg=1 tab, No Longer [place] oral tablet PO, Daily, 0 Active 2015 Medical Refill(s) Center pravastatin 40 40 mg=1 tab, No Longer [place] mg oral tablet PO, Daily, 0 Active 2016 Medical Refill(s) Center Sertraline 100 200 mg=2 tab, Active [place] MG Oral Tablet PO, Daily, 0 2016 Medical [Zoloft] Refill(s) [place] pantoprazole 40 40 mg=1 tab, Active [place] MG Enteric PO, Daily, 0 2016 Medical Coated Tablet Refill(s) [place] [Protonix] gabapentin 300 1 CAP PO BID Active [place] MG Oral Capsule AND 1 CAP AT 2016 Medical BEDTIME, 0 [place] Refill(s) Insulin, Aspart, 10 unit, No Longer [place] Human 100 UNT/ML SUB-Q, Active 2016 Medical Injectable TID-Meals, # [place] Solution 10 mL, 0 [NovoLog] Refill(s) buPROPion 150 mg 150 mg=1 tab, Active [place] oral tablet, PO, Daily, 0 2016 Medical extended release Refill(s) [place] Hydralazine 75 mg=3 tab, No Longer [place] Hydrochloride 25 PO, Daily, 0 Active 2016 Medical MG Oral Tablet Refill(s) [place] metoprolol 100 100 mg=1 tab, No Longer [place] mg oral tablet, PO, Daily, # Active 2016 Medical extended release 30 tab, 0 [place] Refill(s) Insulin Glargine 50 unit, No Longer [place] 100 UNT/ML SUB-Q, Daily, Active 2016 Medical Injectable 0 Refill(s) [place] Solution [Lantus] Regular Insulin, 25 unit, No Longer [place] Human 100 UNT/ML SUB-Q, Active 2016 Medical Injectable TID-Meals, 0 [place] Solution Refill(s) [Humulin R] 24 HR Divalproex 500 mg=1 tab, Active [place] Sodium 500 MG PO, QAM, AND 2016 Medical Extended Release 2 TAB AT [place] Tablet BEDTIME, 0 [Depakote] Refill(s) atorvastatin 40 mg, 1 tab, No Longer [place] Route: PO, Active 2015 Medical Drug form: [place] TAB, Bedtime, Dosing Weight 103.182, kg, Start date: 06/11/16 21:00:00 METAL SPINNER, Duration: 30 day, Stop date: 07/10/16 21:00:00 CSTNotes: (Same as: Lipitor) Lactulose 10 gm, 15 mL, No Longer [place] Route: PO, Active 2015 Medical Drug Form: [place] SYRP, Dosing Weight 103.182, kg, TID, Start date: 06/11/16 13:00:00 METAL SPINNER, Duration: 30 day, Stop date: 07/11/16 9:00:00 CSTNotes: (Same as:Chronulac) Furosemide 80 mg, 8 mL, No Longer [place] Route: IVP, Active 2015 Medical Drug form: [place] INJ, Q12H, Dosing Weight 86.364, kg, Start date: 06/11/16 9:00:00 METAL SPINNER, Stop date: 07/10/16 21:00:00 CSTNotes: (Same as: Lasix) MEDICATION WASTE Product Size: 40 mg Product Wasted: ___ mg Aspirin 81 MG 81 mg, 1 tab, No Longer [place] Chewable Tablet Route: PO, Active 2015 Medical Drug form: [place] CHEWTAB, Daily, Dosing Weight 86.364, kg, Start date: 06/11/16 9:00:00 METAL SPINNER, Duration: 30 day, Stop date: 07/10/16 9:00:00 CSTNotes: Take with food. gabapentin 300 300 mg, 1 No Longer [place] MG Oral Capsule cap, Route: Active 2015 Medical PO, Drug Center form: CAP, Q12H, Dosing Weight 86.364, kg, (CrCl 30 - 59 ml/min), Start date: 06/11/16 9:00:00 METAL SPINNER, Stop date: 07/10/16 21:00:00 CSTNotes: (Same as: Neurontin) Divalproex 500 mg, 1 No Longer [place] Sodium 500 MG tab, Route: Active 2015 Medical Enteric Coated PO, Drug Center Tablet form: ERTAB, [Depakote] QAM, Dosing Weight 86.364, kg, Start date: 06/11/16 9:00:00 METAL SPINNER, Duration: 30 day, Stop date: 07/10/16 9:00:00 CSTNotes: (Same as: Depakote ER) Once daily dosing; indicated for migraines. Divalproex sodium extended-rele ase tab. Do not chew or crush. "Do Not Crush" Aspirin 81 mg, Route: No Longer [place] PO, Drug Active 2015 Medical form: ECTAB, Center Daily, Dosing Weight 86.364, kg, Start date: 06/11/16 9:00:00 METAL SPINNER, Duration: 30 day, Stop date: 07/10/16 9:00:00 METAL SPINNER Insulin Glargine 40 unit, No Longer [place] 100 UNT/ML Route: SUB-Q, Active 2015 Medical Injectable Drug form: Center Solution SOLN, Daily, [Lantus] Dosing Weight 86.364, kg, Start date: 06/11/16 9:00:00 METAL SPINNER, Duration: 30 day, Stop date: 07/10/16 9:00:00 CSTNotes: Same as: Lantus) Do not hold insulin without contacting prescriber WASTE: F/P - Black; E - Municipal Trash Bin Zoloft 200 mg, 2 No Longer [place] tab, Route: Active 2015 Medical PO, Drug Center form: TAB, Daily, Dosing Weight 86.364, kg, Start date: 06/11/16 9:00:00 METAL SPINNER, Duration: 30 day, Stop date: 07/10/16 9:00:00 CSTNotes: (Same as: Zoloft) Insulin, Aspart, 4 unit, 0.04 No Longer [place] Human mL, Route: Active 2015 Medical SUB-Q, Drug Center form: SOLN, TID-Before Meals, Dosing Weight 103.182, kg, PRN Blood Glucose Results, Start date: 06/11/16 6:55:00 METAL SPINNER, Duration: 30 day, Stop date: 07/11/16 6:54:00 CSTNotes: Roll in palms of hands gently; Do not shake vigorously. (Same as: NovoLOG) "single patient use only" WASTE: F/P - Black; E - Municipal Trash Bin Stable for 28 days at room temperature. Expires in days from _Date heparin sodium, 5,000 unit, 1 No Longer [place] porcine 2500 mL, Route: Active 2015 Medical UNT/ML SUB-Q, Drug Center Injectable form: INJ, Solution Q8H, Dosing Weight 103.182, kg, Start date: 06/11/16 0:00:00 METAL SPINNER, Duration: 30 day, Stop date: 07/10/16 16:00:00 CSTNotes: porcine heparin Albuterol 0.833 3 mL, Route: No Longer [place] MG/ML / NEB, Drug Active 2015 Medical Ipratropium Form: SOLN, Center [facility] 0.167 Dosing Weight MG/ML Inhalant 86.364, kg, Solution RQID, Start [DuoNeb] date: 06/10/16 21:00:00 METAL SPINNER, Duration: 30 day, Stop date: 07/10/16 19:00:00 CSTNotes: (Same as: Duoneb) gabapentin 300 300 mg, Inactive [place] MG Oral Capsule Route: PO, 2015 Medical Drug form: [place] CAP, Q12H, Dosing Weight 86.364, kg, (CrCl 30 - 59 ml/min), Start date: 06/10/16 21:00:00 METAL SPINNER, Duration: 30 day, Stop date: 07/10/16 9:00:00 METAL SPINNER divalproex 1,000 mg, 2 No Longer [place] sodium tab, Route: Active 2015 Medical PO, Drug Center form: ERTAB, Bedtime, Start date: 06/10/16 21:00:00 METAL SPINNER, Duration: 30 day, Stop date: 07/09/16 21:00:00 CSTNotes: (Same as: Depakote ER) Once daily dosing; indicated for migraines. Divalproex sodium extended-rele ase tab. Do not chew or crush. "Do Not Crush" Losartan 25 mg, 1 tab, No Longer [place] Route: PO, Active 2015 Medical Drug form: Center TAB, Daily, Dosing Weight 86.364, kg, Start date: 06/10/16 21:00:00 METAL SPINNER, Duration: 30 day, Stop date: 07/10/16 9:00:00 CSTNotes: (Same as: Cozaar) Insulin, Aspart, 3 unit, 0.03 No Longer [place] Human mL, Route: Active 2015 Medical SUB-Q, Drug Center form: SOLN, TID-Before Meals, Dosing Weight 86.364, kg, PRN Blood Glucose Results, Start date: 06/10/16 18:50:00 METAL SPINNER, Duration: 30 day, Stop date: 07/10/16 18:49:00 CSTNotes: Roll in palms of hands gently; Do not shake vigorously. (Same as: NovoLOG) "single patient use only" WASTE: F/P - Black; E - Municipal Trash Bin Stable for 28 days at room temperature. Expires in days from _Date Dextrose 50% 12.5 gm, 25 No Longer [place] Syringe mL, Route: Active 2015 Medical IVP, Drug Center Form: INJ, Dosing Weight 86.364, kg, PRN, PRN Blood Glucose Results, Start date: 06/10/16 18:50:00 METAL SPINNER, Duration: 30 day, Stop date: 07/10/16 18:49:00 METAL SPINNER Glucagon 1 mg, Route: No Longer [place] IM, Drug Active 2015 Medical form: Center PDR/INJ, PRN, Dosing Weight 86.364, kg, PRN Blood Glucose Results, Start date: 06/10/16 18:50:00 METAL SPINNER, Duration: 30 day, Stop date: 07/10/16 18:49:00 METAL SPINNER Hydralazine 10 mg, 0.5 No Longer [place] mL, Route: Active 2015 Medical IV, Drug Center form: INJ, Q4H, Dosing Weight 86.364, kg, PRN Hypertension, Start date: 06/10/16 18:36:00 METAL SPINNER, Duration: 30 day, Stop date: 07/10/16 18:35:00 METAL SPINNER, SBP > 160 or DBP > 100, hold for HR Notes: (Same as: Apresoline) Push over 5 minutes Hydralazine 100 mg, 2 No Longer [place] tab, Route: Active 2016 Medical PO, Drug Center form: TAB, TID, Dosing Weight 86.364, kg, Priority: NOW, Start date: 06/10/16 18:34:00 METAL SPINNER, Stop date: 07/10/16 17:00:00 CSTNotes: (Same as: Apresoline) May interfere w/enteral feedings Take With Food metoprolol 100 mg, 1 No Longer [place] extended release tab, Route: Active 2016 Medical PO, Drug Center form: ERTAB, Daily, Priority: NOW, Start date: 06/10/16 18:08:00 METAL SPINNER, Stop date: 07/10/16 9:00:00 CSTNotes: (Same as: Toprol XL) May split tab, but do not crush. Hydralazine 10 mg, Route: Inactive [place] IV, ONCE, 2015 Medical Dosing Weight Center 86.364, kg, Start date: 06/10/16 18:06:00 METAL SPINNER, Stop date: 06/10/16 18:06:00 METAL SPINNER hydrOXYzine 50 mg, 1 cap, No Longer [facility] pamoate Route: PO, Active 2015 Medical Drug form: Center CAP, TID, Dosing Weight 86.364, kg, Start date: 06/10/16 17:00:00 METAL SPINNER, Duration: 30 day, Stop date: 07/10/16 13:00:00 CSTNotes: (Same as: Vistaril) Furosemide 60 mg, Route: Inactive [place] IVP, Drug 2015 Medical form: INJ, Center ONCE, Dosing Weight 86.364, kg, Start date: 06/10/16 16:32:00 METAL SPINNER, Stop date: 06/10/16 16:32:00 METAL SPINNER Lasix 40 mg, 4 mL, Inactive [facility] Route: IVP, 2015 Medical Drug form: Center INJ, ONCE, Dosing Weight 86.364, kg, Priority: STAT, Start date: 06/10/16 11:22:00 METAL SPINNER, Stop date: 06/10/16 11:22:00 CSTNotes: (Same as: Lasix) MEDICATION WASTE Product Size: 40 mg Product Wasted: _0__ mg Albuterol 0.833 3 ml, Route: No Longer [place] MG/ML / NEB, Drug Active 2015 [facility] Dosing Weight MG/ML Inhalant 86.364, kg, Solution PRN, PRN [DuoNeb] Respiratory Protocol, Start date: 06/10/16 11:22:00 METAL SPINNER, Stop date: 07/10/16 11:21:00 CSTNotes: (Same as: Duoneb) Hydralazine THREE TIMES A Active Pre [facility] DAY 2015 [facility] Metoprolol TWICE DAILY Active . Succinate 0600 AND 1800 2015 [facility] [place] Metoprolol TWICE DAILY Active . Tartrate 0600 AND 1800 2015 [facility] [place] Amlodipine DAILY Active . 2016 [facility] [place] Famotidine TWICE DAILY Active Pre. 2016 [facility] [place] Prednisone TWICE DAILY Active . 2016 [facility] [place] Gabapentin Active . 2016 [facility] [place] Magnesium Oxide TWICE DAILY Active [place] . 2016 [facility] [place] Omeprazole TWICE DAILY Active . 2016 [facility] [place] Benztropine DAILY Active . Mesylate 2015 [facility] [place] Hydroxyzine Elise THREE TIMES A Active 2014 [facility] [place] Lisinopril DAILY Active Jovanni [facility] . 2015 [facility] [place] Promethazine 25 mg=1 supp, Active [place] Hydrochloride 25 MS, Q6H, 2014 Medical MG Rectal Nausea & Center Suppository Vomiting, # 9 [Phenergan] supp, 0 Refill(s) Ondansetron 4 MG 4 mg=1 tab, Active [place] Disintegrating PO, BID, 2015 Medical Tablet [Zofran] Nausea and Center Vomiting, Dissolve tab under tongue, # 10 tab, 0 Refill(s)Spec ial Instructions: Dissolve tab under tongue Metoclopramide 10 mg=1 tab, Active [place] 10 MG Oral PO, QID, # 40 2015 Medical Tablet [Reglan] tab, 0 [place] Refill(s) Erythromycin 500 =1 tab, PO, Active MG Enteric Q6H, # 40 2015 Medical Coated Tablet tab, 0 Center Refill(s) Hydromorphone 1 mg, 0.5 mL, Inactive [facility] Route: IVP, 2014 Medical Drug form: [place] INJ, ONCE, Dosing Weight 75, kg, Priority: STAT, Start date: 06/26/14 5:48:00, Stop date: 06/26/14 5:48:00Notes: Same as: Dilaudid hydrOXYzine 0 Refill(s) Active [facility] pamoate 2014 [facility] Dicyclomine 0 Refill(s) Active [facility] 2014 [facility] Ondansetron 0 Refill(s) Active [facility] 2014 [facility] Benztropine 0 Refill(s) Active [facility] 2014 [facility] Clonidine 0 Refill(s) Active [facility] 2014 [facility] Zoloft 0 Refill(s) Active [facility] 2014 [facility] Metoclopramide 0 Refill(s) Active [facility] 2014 [facility] Erythromycin 0 Refill(s) Active [facility] 2014 [facility] Tramadol 0 Refill(s) Active [facility] 2014 [facility] Depakote 0 Refill(s) Active [facility] 2014 [facility] quetiapine 0 Refill(s) Active [facility] 2014 [facility] Sodium Chloride 2,000 mL, Inactive [facility] 0.154 MEQ/ML 1,000 ml/hr, 2014 Medical Injectable Infuse Over: [place] Solution 2 hr, Route: IV, 2,000, Drug form: INJ, ONCE, Priority: STAT, Dosing Weight 75 kg, Start date: 06/26/14 4:56:00, Duration: 1 doses or times, Stop date: 06/26/14 4:56:00 Lorazepam 2 mg, 1 mL, Inactive [facility] Route: IVP, 2014 Medical Drug form: [place] INJ, ONCE, Dosing Weight 75, kg, Priority: STAT, Start date: 06/26/14 4:56:00, Stop date: 06/26/14 4:56:00Notes: (Same as: Ativan) Metoclopramide 10 mg, 2 mL, Inactive [place] Route: IVP, 2014 Medical Drug form: Center INJ, ONCE, Dosing Weight 75, kg, Priority: STAT, Start date: 06/26/14 4:55:00, Stop date: 06/26/14 4:55:00Notes: (Same as: Reglan) Lisinopril DAILY Active [facility] St[facility] 2013 [facility] [place] Clonidine Hcl DAILY Active [facility] . 2013 [facility] [place] Divalproex AT BEDTIME Active . Sodium 2014 [facility] [place] Clonidine Hcl THREE TIMES A Inactive Jovanni DAY PRN For 2013 [facility] bp [place] >170,or diast >100 Divalproex Er AT BEDTIME Inactive [facility] . 2014 [facility] [place] Sertraline DAILY Active . 2014 [facility] [place] Divalproex DAILY Active . Sodium 2013 [facility] [place] Gabapentin THREE TIMES A Active 2012 [facility] [place] Zofran ODT 4 mg 4 mg, 1 tab, Active [facility] oral tablet, PO, BID, PRN, 2012 [facility] disintegrating Dissolve tab under tongue, 10 tab, Nausea and Vomiting, Substitution AllowedDissol ve tab under tongue Saline Flush 5 mL, Route: No Longer [place] 04/15/ MH 0.9% IVP, Drug Active 2012 [facility] Form: INJ, Dosing Weight 63.636, kg, PRN, PRN Line Flush, Start date: 04/14/13 23:10:00, Duration: 24 hr, Stop date: 04/15/13 23:09:00(Same as: BD Posiflush) morphine Sulfate 4 mg, Route: No Longer [place] 04/15/ MH IVP, ONCE, Active 2012 [facility] Dosing Weight 63.636, kg, Priority: STAT, Start date: 04/14/13 23:10:00, Stop date: 04/14/13 23:10:00 ketorolac 30 mg, Route: No Longer [place] IVP, ONCE, Active 2012 [facility] Dosing Weight 63.636, kg, Priority: STAT, Start date: 04/14/13 23:10:00, Stop date: 04/14/13 23:10:00 ondansetron 4 mg, Route: No Longer [place] IVP, ONCE, Active 2012 [facility] Dosing Weight 63.636, kg, Priority: STAT, Start date: 04/14/13 23:10:00, Stop date: 04/14/13 23:10:00 Sodium Chloride 1,000 mL, No Longer [place] 0.9% IV 1,000 mL Rate: 125 Active 2012 [facility] ml/hr, Infuse over: 8 hr, Route: IV, Dosing Weight 63.636 kg, Total Volume: 1,000, Start date: 04/14/13 23:10:00, Duration: 30 day, Stop date: 05/14/13 23:09:00 Insulin Glargine DAILY Active 09/14/ [facility] St[facility] Human 2013 [facility] [place] Insulin -Regular NEEDED PRN Active [facility] St. Human For scale 2013 [facility] [place] Quetiapine DAILY Active [facility] St. Fumarate 2013 [facility] [place] Quetiapine AT BEDTIME Active [facility] St. Fumarate 2013 [facility] [place] morphine Sulfate 5 mg, Route: IVP No Longer [place] IVP, ONCE, Active 2011 [facility] Dosing Weight 58.636, kg, Priority: STAT, Start date: 03/14/12 20:15:00, Stop date: 03/14/12 20:15:00 Sodium Chloride 500 mL, Rate: IV No Longer [place] 0.9% (Bolus) IV 500 ml/hr, Active 2011 [facility] 500 mL Infuse over: 1 hr, Route: IV, kg, Total Volume: 500, Bolus Dose, Priority: STAT, Start date: 03/14/12 18:45:00, Duration: 1 doses or times, Stop date: 03/14/12 19:44:00 ondansetron 4 mg, Route: IVP No Longer [place] IVP, ONCE, Active 2011 [facility] Dosing Weight 58.636, kg, Priority: STAT, Start date: 03/14/12 17:19:00, Stop date: 03/14/12 17:19:00 morphine Sulfate 5 mg, Route: IVP No Longer [place] IVP, ONCE, Active 2011 [facility] Dosing Weight 58.636, kg, Priority: STAT, Start date: 03/14/12 17:19:00, Stop date: 03/14/12 17:19:00 pantoprazole 40 mg, Route: IVP No Longer [place] IVP, ONCE, Active 2011 [facility] Dosing Weight 58.636, kg, For IV push reconstitute with 10 ml 0.9% sodium chloride and push over at least 3 minutes, Priority: STAT, Start date: 03/14/12 17:19:00, Stop date: 03/14/12 17:19:00 Sodium Chloride 500 mL, Rate: IV No Longer [place] 0.9% (Bolus) IV 1,000 ml/hr, Active 2011 [facility] 500 mL Infuse over: 0.5 hr, Route: IV, kg, Total Volume: 500, Bolus dose, Priority: STAT, Start date: 03/14/12 17:19:00, Duration: 1 doses or times, Stop date: 03/14/12 17:48:00 Benztropine TWICE DAILY Active [facility] St. Mesylate 2012 [facility] [place] Erythromycin FOUR TIMES Active [facility] DAILY 2012 [facility] [place] Insulin Nph Active [facility] St. Human 2012 [facility] [place] Tramadol TWICE DAILY Active [facility] St. Hcl/Acetaminophe NEEDED PRN 2012 [facility] [place] Venlafaxine Hcl DAILY Active [facility] St. 2012 [facility] [place] Ziprasidone Hcl AT BEDTIME Active [facility] St. 2012 [facility] [place] Erythromycin THREE TIMES A Active [facility] 01/08[facility] DAY 2012 [facility] [place] Nut.Tx.Gluc.Into FOUR TIMES Active [facility] 01/08[facility] St. ler,Lac-Fr,Soy DAILY 2011 [facility] [place] Metoclopramide BEFORE MEALS Active [facility] St. Hcl 2011 [facility] [place] Insulin Regular, INSULIN PM Active [facility] St. Human 2011 [facility] [place] Nph, Human INSULIN PM Active St. Insulin Isophane 2011 [facility] [place] Reglan 10 mg 10 mg, 1 tab, PO Active [facility] oral tablet PO, 2011 Medical QID-Before Center Meals, 120 tab, 1, 1, Substitution Allowed insulin 10 unit, 0.1 SUB-Q No Longer [facility] isophane-NPH mL, Route: Active 2011 Medical SUB-Q, Drug Center form: INJ, Bedtime, Start date: 11/29/11 21:00:00, Duration: 30 day, Stop date: 12/28/11 21:00:00 Insulin regular 8 unit, 0.08 SUB-Q No Longer [facility] mL, Route: Active 2011 Medical SUB-Q, Drug Center form: SOLN, Bedtime, Start date: 11/29/11 21:00:00, Duration: 30 day, Stop date: 12/28/11 21:00:00 trazodone 100 mg 200 mg, 2 PO No Longer [facility] oral tablet tab, Route: Active 2011 Medical PO, Drug Center form: TAB, Bedtime, Start date: 11/29/11 21:00:00, Duration: 30 day, Stop date: 12/28/11 21:00:00 Geodon 120 mg, 3 PO No Longer [facility] cap, Route: Active 2011 Medical PO, Drug Center form: CAP, Bedtime, Start date: 11/29/11 21:00:00, Duration: 30 day, Stop date: 12/28/11 21:00:00 amLODipine 5 mg, 1 tab, PO No Longer [facility] Route: PO, Active 2011 Medical Drug form: Center TAB, ONCE, Priority: NOW, Start date: 11/29/11 20:11:00, Stop date: 11/29/11 20:11:00 morphine Sulfate 2 mg, Route: IVP No Longer Omidvar [facility] IVP, ONCE, Active 2011 Medical Start date: Center 11/29/11 16:33:00, Stop date: 11/29/11 16:33:00 morphine Sulfate 2 mg, 0.5 mL, IVP No Longer O[facility] Route: IVP, Active 2011 Medical Drug form: [place] INJ, ONCE, Start date: 11/29/11 16:32:00, Stop date: 11/29/11 16:32:00 Tylenol 650 mg, 2 PO No Longer Omid[facility] tab, Route: Active 2011 Medical PO, Drug Center form: TAB, Q4H, PRN Pain, Start date: 11/29/11 14:16:00, Duration: 30 day, Stop date: 12/29/11 14:15:00 insulin 14 unit, 0.14 SUB-Q No Longer [facility] isophane-NPH mL, Route: Active 2011 Medical SUB-Q, Drug Center form: INJ, Daily, Start date: 11/29/11 9:00:00, Duration: 30 day, Stop date: 12/28/11 9:00:00 Insulin regular 10 unit, 0.1 SUB-Q No Longer [facility] 11/28[facility] mL, Route: Active 2011 Medical SUB-Q, Drug Center form: SOLN, Daily, Start date: 11/29/11 9:00:00, Duration: 30 day, Stop date: 12/28/11 9:00:00 Effexor XR 75 mg, 1 cap, PO No Longer Gunnar [facility] Route: PO, Active 2011 Medical Drug form: Center ERCAP, Daily, Start date: 11/29/11 9:00:00, Duration: 30 day, Stop date: 12/28/11 9:00:00 lisinopril 40 mg, 2 tab, PO No Longer Gunnar [facility] Route: PO, Active 2011 Medical Drug form: Center TAB, Daily, Start date: 11/29/11 9:00:00, Duration: 30 day, Stop date: 12/28/11 9:00:00 benztropine 1 mg, 1 tab, PO No Longer Gunnar [facility] Route: PO, Active 2011 Medical Drug form: Center TAB, BID, Start date: 11/29/11 9:00:00, Duration: 30 day, Stop date: 12/28/11 17:00:00 amLODipine 5 mg, 1 tab, PO No Longer Gunnar [facility] Route: PO, Active 2011 Medical Drug form: Center TAB, Daily, Start date: 11/29/11 9:00:00, Duration: 30 day, Stop date: 12/28/11 9:00:00 insulin aspart 10 unit, 0.1 SUB-Q No Longer Gunnar [place] mL, Route: Active 2011 Medical SUB-Q, Drug Center form: SOLN, TID-Before Meals, PRN Blood Glucose Results, Start date: 11/29/11 1:30:00, Duration: 30 day, Stop date: 12/29/11 1:29:00 Dextrose 50% 25 gm, 50 mL, IVP No Longer Gunnar [facility] Syringe Route: IVP, Active 2011 Medical Drug Form: Center INJ, PRN, PRN Blood Glucose Results, Start date: 11/29/11 1:30:00, Duration: 30 day, Stop date: 12/29/11 1:29:00 glucagon 1 mg, Route: IM No Longer Gunnar [facility] IM, Drug Active 2011 Medical form: Center PDR/INJ, PRN, PRN Blood Glucose Results, Start date: 11/29/11 1:30:00, Duration: 30 day, Stop date: 12/29/11 1:29:00 normal saline 1,000 mL, IV No Longer Gunnar [facility] 0.9% IV 1,000 mL Rate: 200 Active 2011 [facility] ml/hr, Infuse Center over: 5 hr, Route: IV, Dosing Weight 57.273 kg, Total Volume: 1,000, Start date: 11/29/11 1:29:00, Duration: 30 day, Stop date: 12/29/11 1:28:00 Saline Flush 5 ml, Route: IVP No Longer Gunnar [facility] 0.9% IVP, Drug Active 2011 Medical Form: INJ, Center PRN, PRN Line Flush, Start date: 11/29/11 1:28:00, Duration: 30 day, Stop date: 12/29/11 1:27:00 ondansetron 4 mg, 2 mL, IVP No Longer Gunnar 06/10[facility] Route: IVP, Active 2011 Medical Drug form: Center INJ, Q8H, PRN Nausea & Vomiting, Start date: 11/29/11 1:28:00, Duration: 30 day, Stop date: 12/29/11 1:27:00 Reglan 10 mg, 2 mL, IVP No Longer [facility] 11/28[facility] Route: IVP, Active 2011 Medical Drug form: Center INJ, Q6H, Priority: STAT, Start date: 11/29/11 1:28:00, Duration: 30 day, Stop date: 12/29/11 0:00:00 Protonix 40 mg, Route: IV No Longer [facility] 11/28[facility] IV, Drug Active 2011 Medical form: INJ, Center ONCE, Priority: STAT, Start date: 11/29/11 1:28:00, Stop date: 11/29/11 1:28:00 metoclopramide 10 mg, 2 mL, IVP No Longer [facility] 11/28[facility] Route: IVP, Active 2011 Medical Drug form: Center INJ, ONCE, Priority: STAT, Start date: 11/28/11 23:01:00, Stop date: 11/28/11 23:01:00 Zofran 4 mg, 2 mL, IVP No Longer [facility] [address] Route: IVP, Active 2011 Medical Drug form: Center INJ, ONCE, Priority: STAT, Start date: 11/28/11 21:31:00, Stop date: 11/28/11 21:31:00 NS (Bolus) IV 1,000 mL, IV No Longer [facility] 1,000 mL Rate: 1,000 2011 Medical ml/hr, Infuse Center over: 1 hr, Route: IV, Dosing Weight 57.273 kg, Total Volume: 1,000, Start date: 11/28/11 17:48:00, Duration: 30 day, Stop date: 12/28/11 17:47:00 NS (Bolus) IV 1,000 mL, IV No Longer Domenico [facility] 1,000 mL Rate: 1,000 2011 Medical ml/hr, Infuse Center over: 1 hr, Route: IV, Dosing Weight 57.273 kg, Total Volume: 1,000, Start date: 11/28/11 15:36:00, Duration: 30 day, Stop date: 12/28/11 15:35:00 Ativan 2 mg, 1 mL, IVP No Longer Domenico [facility] Route: IVP, Active 2011 Medical Drug form: Center INJ, ONCE, Priority: STAT, Start date: 11/28/11 15:35:00, Stop date: 11/28/11 15:35:00 Smz./Tmp. TWICE DAILY Active 11/26[facility] 2011 [facility] Benztropine TWICE DAILY Active 11/26[facility] St[facility] Mesylate PRN For 2011 [facility] [place] Doxycycline TWICE DAILY Active 11/26[facility] Hyclate 2011 [facility] Chlorhexidine THREE TIMES A Active 11/26[facility] St[facility] Gluconate DAY 2011 [facility] Amlodipine DAILY Active [facility] 11/04[facility] Besylate 2011 [facility] Lisinopril DAILY Active [facility] 11/04[facility] 2012 [facility] Metoclopramide BEFORE MEALS Active [facility] 11/04[facility] Hcl 2011 [facility] Effexor Xr DAILY Active 11/01[facility] 2012 [facility] Insulin Regular, INSULIN AM Active 11/01[facility] St[facility] Human 2011 [facility] Insulin Nph INSULIN AM Active [facility] St[facility] Human 2011 [facility] Novolin R 100 8 unit, SUB-Q Active [facility] units/mL SUB-Q, Q12H, 2011 Medical injectable 2 vial, Center solution Substitution Allowed, SOLN Novolin N 100 10 unit, SUB-Q Active [facility] 09/17/ [facility] units/mL SUB-Q, 2011 Medical subcutaneous Bedtime, 10 Center injection ml, Substitution Allowed, SUSP Novolin N 100 14 unit, SUB-Q Active [facility] units/mL SUB-Q, QAM, 1 2011 Medical subcutaneous vial, Center injection Substitution Allowed, SUSP magnesium oxide 400 mg, 1 PO No Longer [facility] tab, Route: Active 2011 Medical PO, Drug Center form: TAB, ONCE, Priority: STAT, Start date: 09/18/11 9:55:00, Stop date: 09/18/11 9:55:00 Insulin regular 8 unit, 0.08 SUB-Q No Longer [facility] mL, Route: Active 2011 Medical SUB-Q, Drug Center form: SOLN, ONCE, Priority: STAT, Start date: 09/18/11 9:22:00, Stop date: 09/18/11 9:22:00 Lactated Ringers 1,000 mL, IV No Longer [facility] (Bolus) IV 1,000 Rate: 1,000 Active 2011 Medical mL ml/hr, Infuse Center over: 1 hr, Route: IV, Total Volume: 1,000, [place]us Dose, Priority: STAT, Start date: 09/18/11 9:16:00, Duration: 1 doses or times, Stop date: 09/18/11 10:15:00 Sodium Chloride 1,000 mL, IV No Longer [facility] [place] 0.9% (Bolus) IV Rate: 1,000 Active 2011 [facility] 1000 mL ml/hr, Infuse Center over: 1 hr, Route: IV, kg, Total Volume: 1,000, [place] Dose, Priority: STAT, Start date: 09/18/11 9:06:00, Duration: 1 doses or times, Stop date: 09/18/11 10:05:00 sulfamethoxazole Substitution Active [place] Allowed 2011 [facility] Sodium Chloride 1,000 mL, IV No Longer [facility] [place] 0.9% (Bolus) IV Rate: 1,000 Active 2011 Medical 1000 mL ml/hr, Infuse Center over: 1 hr, Route: IV, kg, Total Volume: 1,000, [place] Dose, Priority: STAT, Start date: 09/18/11 8:56:00, Duration: 1 doses or times, Stop date: 09/18/11 9:55:00 clindamycin 300 mg, 2 PO No Longer Anabelle [place] cap, Route: Active 2011 Medical PO, Drug Center form: CAP, Q8H, Start date: 09/09/11 16:00:00, Duration: 30 day, Stop date: 10/09/11 8:00:00 Colace 100 mg 100 mg, 1 PO Active Zeeshan [place] oral capsule cap, PO, BID, 2011 Medical 60 cap, Center Substitution Allowed, CAP clindamycin 150 300 mg, 2 PO Active [place] mg oral capsule cap, PO, Q8H, 2011 30 cap, Center Substitution Allowed, CAP [place] 10/325 1 tab, PO, PO Active [place] [facility] oral tablet Q4H, PRN, 30 2011 Medical tab, Pain, Center Substitution Allowed, Maintenance, TAB [place] 10/325 1 tab, Route: PO No Longer Mahi [facility] oral tablet PO, Drug Active 2011 Medical Form: TAB, Center Q4H, Start date: 09/09/11 4:00:00, Duration: 30 day, Stop date: 10/09/11 0:00:00 Colace 100 mg 100 mg, 1 PO No Longer Omidvar [facility] oral capsule cap, Route: Active 2011 Medical PO, Drug Center form: CAP, BID, Start date: 09/07/11 17:00:00, Duration: 30 day, Stop date: 10/07/11 9:00:00 enalapril 5 mg, 1 tab, PO No Longer Omidvar [facility] Route: PO, Active 2011 Medical Drug form: Center TAB, Daily, Start date: 09/07/11 10:30:00, Duration: 30 day, Stop date: 10/07/11 9:00:00 flumazenil 0.2 mg, 2 mL, IVP No Longer Gavin [facility] Route: IVP, Active 2011 Medical Drug form: Center INJ, PRN, PRN Benzodiazepin e Reversal, Initial dose, Start date: 09/07/11 9:19:00, Duration: 1 day, Stop date: 09/08/11 9:18:00 naloxone 0.04 mg, 0.1 IVP No Longer [place] Micki mL, Route: Active 2011 Medical IVP, Drug Center form: INJ, Q2MIN, PRN Narcotic Reversal, Start date: 09/07/11 9:19:00, Duration: 8 doses or times, Stop date: Limited # of times ondansetron 4 mg, 2 mL, IVP No Longer [place] [facility] Route: IVP, Active 2011 Medical Drug form: Center INJ, ONCE, PRN Nausea & Vomiting, Start date: 09/07/11 9:19:00 hydromorphone 0.5 mg, 0.25 IVP No Longer [place] [facility] mL, Route: Active 2011 Medical IVP, Drug Center form: INJ, Q5Min, PRN Pain Score 4-6, Start date: 09/07/11 9:19:00, Duration: 5 doses or times, Stop date: Limited # of times acetaminophen-hy 15 mL, Route: PO No Longer [place] drocodone 325 PO, Drug Active 2011 Medical mg-10 mg/15 mL Form: SOLN, Center oral solution Q4H, PRN Pain Score 4-6, Start date: 09/07/11 9:19:00, Duration: 1 day, Stop date: 09/08/11 8:00:00 Lactated Ringers 1,000 mL, IV No Longer Omidvar [place] IV 1,000 mL Rate: 125 Active 2011 Medical ml/hr, Infuse Center over: 8 hr, Route: IV, Dosing Weight 68.182 kg, Total Volume: 1,000, Start date: 09/07/11 9:06:00, Duration: 30 day, Stop date: 10/07/11 9:05:00 clindamycin 600 mg, IVPB No Longer Arias [place] Route: IVPB, Active 2011 Medical ONCE, Start Center date: 09/07/11 8:31:00, Stop date: 09/07/11 8:31:00 normal saline 1,000 mL, IV No Longer Adeline [facility] 0.9% IV 1,000 mL Rate: 100 Active 2011 Medical ml/hr, Infuse Center over: 10 hr, Route: IV, Dosing Weight 68.18 kg, Total Volume: 1,000, Start date: 09/07/11 0:00:00, Duration: 30 day, Stop date: 10/06/11 23:59:00 normal saline 1,000 mL, IV No Longer Adeline [facility] 0.9% IV 1000 mL Rate: 100 Active 2011 Medical ml/hr, Infuse Center over: 10 hr, Route: IV, kg, Total Volume: 1,000, Start date: 09/06/11 8:25:00, Duration: 30 day, Stop date: 10/06/11 8:24:00 senna 8.6 mg 8.6 mg, 1 PO No Longer Omidvar [facility] oral tablet tab, Route: Active 2011 Medical PO, Drug Center Form: TAB, BID, PRN as needed for constipation, Start date: 09/05/11 10:00:00, Duration: 30 day, Stop date: 10/05/11 9:00:00 Colace 100 mg 100 mg, 1 PO No Longer Omidvar [facility] oral capsule cap, Route: Active 2011 Medical PO, Drug Center form: CAP, BID, PRN as needed for constipation, Start date: 09/05/11 10:00:00, Duration: 30 day, Stop date: 10/05/11 9:00:00 potassium 40 mEq, 2 PO No Longer Omidvar [facility] chloride tab, Route: Active 2011 Medical PO, Drug Center form: ERTAB, ONCE, Start date: 09/05/11 9:11:00, Stop date: 09/05/11 9:11:00 Dulcolax 10 mg, 2 tab, PO No Longer Wong [facility] Laxative Route: PO, Active 2011 Medical Drug form: Center ECTAB, Daily, PRN Constipation, Priority: NOW, Start date: 09/04/11 23:00:00, Duration: 30 day, Stop date: 10/04/11 22:59:00 Zofran 4 mg, 2 mL, IV No Longer Peg [facility] Route: IV, Active 2011 Medical Drug form: Center INJ, Q4H, PRN as needed for nausea/vomiti ng, Priority: NOW, Start date: 09/04/11 18:11:00, Duration: 30 day, Stop date: 10/04/11 18:10:00 [place] 10/325 1 tab, Route: PO No Longer Dez [facility] oral tablet PO, Drug Active 2011 Medical Form: TAB, Center Q4H, Start date: 09/04/11 12:00:00, Duration: 30 day, Stop date: 10/04/11 8:00:00 Sodium Chloride 320 mL, Rate: NERVE No Longer Kavon [place] 0.9% IV 320 mL + 10 ml/hr, BLOCK Active 2011 Medical ropivacaine 1% Infuse over: Center 800 mg + Q-Pump 40 hr, Route: 1 ea NERVE BLOCK, Dosing Weight 68.182 kg, Total Volume: 400, Start date: 09/04/11 10:01:00, Duration: 7 day, Stop date: 09/11/11 10:00:00 ondansetron 4 mg, 2 mL, IVP No Longer Kavon [facility] Route: IVP, Active 2011 Medical Drug [...] 0.04 mg, 0.1 IVP No Longer Kavon [facility] mL, Route: Active 2011 Medical IVP, Drug Center form: INJ, Q2MIN, PRN Narcotic Reversal, Start date: 09/04/11 9:50:00, Duration: 30 day, Stop date: 10/04/11 9:49:00 [place] 10/325 1 tab, Route: PO No Longer Omidvar [place] oral tablet PO, Drug Active 2011 Medical Form: TAB, Center Q4H, PRN Pain, Start date: 09/04/11 9:49:00, Stop date: 10/04/11 9:48:00 labetalol 5 mg, Route: IV No Longer [place] Micki IV, ONCE, Active 2011 Medical Start date: Center 09/04/11 9:40:00, Stop date: 09/04/11 9:40:00 ondansetron 4 mg, 2 mL, IVP No Longer Hayden [facility] Route: IVP, Active 2011 Medical Drug form: Center INJ, ONCE, PRN Nausea & Vomiting, Start date: 09/04/11 8:37:00 naloxone 0.04 mg, 0.1 IVP No Longer Hayden [facility] mL, Route: Active 2011 Medical IVP, Drug Center form: INJ, Q2MIN, PRN Narcotic Reversal, Start date: 09/04/11 8:37:00, Duration: 8 doses or times, Stop date: Limited # of times meperidine 12.5 mg, 0.5 IVP No Longer Hayden [facility] mL, Route: Active 2011 Medical IVP, Drug Center form: INJ, Q30Min, PRN Other -See Comment, For shivering, Start date: 09/04/11 8:37:00, Duration: 2 doses or times, Stop date: Limited # of times flumazenil 0.2 mg, 2 mL, IVP No Longer Hayden [facility] Route: IVP, Active 2011 Medical Drug form: Center INJ, PRN, PRN Benzodiazepin e Reversal, Initial dose, Start date: 09/04/11 8:37:00, Duration: 1 day, Stop date: 09/05/11 8:36:00 hydromorphone 0.5 mg, 0.25 IVP No Longer Kavon [facility] mL, Route: Active 2011 Medical IVP, Drug Center form: INJ, Q5Min, PRN Pain Score 4-6, Start date: 09/04/11 8:37:00, Duration: 5 doses or times, Stop date: Limited # of times clindamycin 600 mg, 4 mL, IVPB No Longer Anabelle [facility] Route: IVPB, Active 2011 Medical ABXQ8H, Start Center date: 09/03/11 11:00:00, Duration: 30 day, Stop date: 10/03/11 8:00:00 potassium 40 mEq, 2 PO No Longer Omidvar [facility] chloride tab, Route: Active 2011 Medical PO, Drug Center form: ERTAB, ONCE, Start date: 09/03/11 8:39:00, Stop date: 09/03/11 8:39:00 [place] 5/325 oral 1 tab, Route: PO No Longer Kavon [facility] tablet PO, Drug Active 2011 Medical Form: TAB, Center Q4H, Start date: 09/03/11 0:00:00, Duration: 30 day, Stop date: 10/02/11 20:00:00 Geodon 120 mg, 3 PO No Longer Anabelle [facility] cap, Route: Active 2011 Medical PO, Drug Center form: CAP, Bedtime, Start date: 09/02/11 21:00:00, Duration: 30 day, Stop date: 10/01/11 21:00:00 trazodone 100 mg 200 mg, 4 PO No Longer Anabelle [facility] oral tablet tab, Route: Active 2011 Medical PO, Drug Center form: TAB, Bedtime, Start date: 09/02/11 21:00:00, Duration: 30 day, Stop date: 10/01/11 21:00:00 Effexor XR 75 mg, 1 cap, PO No Longer Anabelle [facility] Route: PO, Active 2011 Medical Drug form: Center ERCAP, Daily, Give qAM after today's dose., Start date: 09/02/11 12:00:00, Duration: 30 day, Stop date: 10/02/11 9:00:00 [place] 5/325 oral 1 tab, Route: PO No Longer Kavon [facility] tablet PO, Drug Active 2011 Medical Form: TAB, Center Q4H, PRN Pain, Start date: 09/02/11 11:25:00, Duration: 30 day, Stop date: 10/02/11 11:24:00 magnesium 4 gm, 50 mL, IVPB No Longer Omidvar [facility] sulfate Route: IVPB, Active 2011 Medical Drug form: Center INJ, ONCE, Start date: 09/02/11 11:15:00, Stop date: 09/02/11 11:15:00 Lovenox 40 mg, 0.4 SUB-Q No Longer Movva [facility] mL, Route: Active 2011 Medical SUB-Q, Drug Center form: INJ, Daily, Start date: 09/02/11 9:00:00, Duration: 30 day, Stop date: 10/01/11 9:00:00 vancomycin 1 gm, Route: IVPB No Longer Anabelle [facility] IVPB, Drug Active 2011 Medical form: INJ, Center [id number], Start date: 09/02/11 9:00:00, Duration: 30 day, Stop date: 10/01/11 21:00:00 clindamycin 600 mg, 4 mL, IVPB No Longer Anabelle [facility] (SCIP) Route: IVPB, Active 2011 Medical ABXQ8H, Start Center date: 09/02/11 5:00:00, Duration: 3 doses or times, Stop date: 09/02/11 21:00:00 clindamycin 600 mg, 4 mL, IVPB No Longer Connally [facility] ([facility]) Route: IVPB, Active 2011 Medical ABXQ8H, Start Center date: 09/01/11 23:00:00, Duration: 3 doses or times, Stop date: 09/02/11 15:00:00 insulin 15 unit, 0.15 SUB-Q No Longer Omidvar [facility] isophane-NPH mL, Route: Active 2011 Medical SUB-Q, Drug Center form: INJ, Q12H, Start date: 09/01/11 21:00:00, Stop date: 10/01/11 9:00:00 labetalol 5 mg, Route: IVP No Longer Feliciano [facility] IVP, Q5Min, Active 2011 [facility] PRN Elevated Center BP, Start date: 09/01/11 20:07:00, Duration: 5 doses or times, Stop date: Limited # of times hydrALAZINE 5 mg, Route: IVP No Longer Feliciano [facility] IVP, Q5Min, 2011 [facility] PRN Elevated Center BP, Start date: 09/01/11 20:07:00, Duration: 4 doses or times, Stop date: Limited # of times hydromorphone 0.5 mg, IVP No Longer Feliciano [facility] Route: IVP, Active 2011 Medical Q5Min, PRN Center Pain Score 4-6, Start date: 09/01/11 20:07:00, Duration: 5 doses or times, Stop date: Limited # of times naloxone 0.04 mg, IVP No Longer Feliciano [facility] Route: IVP, Active 2011 Medical Q2MIN, PRN Center Narcotic Reversal, Start date: 09/01/11 20:07:00, Duration: 8 doses or times, Stop date: Limited # of times flumazenil 0.2 mg, IVP No Longer Feliciano [facility] Route: IVP, Active 2011 Medical PRN, PRN Center Benzodiazepin e Reversal, Initial dose, Start date: 09/01/11 20:07:00, Duration: 30 day, Stop date: 10/01/11 20:06:00 ondansetron 4 mg, Route: IVP No Longer Feliciano [facility] IVP, ONCE, Active 2011 Medical PRN Nausea & Center Vomiting, Start date: 09/01/11 20:07:00 vancomycin 1 gm, Route: IVPB No Longer Gauvain [facility] IVPB, Drug Active 2011 Medical form: INJ, Center [id number], Start date: 09/01/11 20:00:00, Duration: 30 day, Stop date: 10/01/11 8:00:00 Lactated Ringers 1,000 mL, IV No Longer Wong [facility] IV 1,000 mL Rate: 125 Active 2011 Medical ml/hr, Infuse Center over: 8 hr, Route: IV, Dosing Weight 68.2 kg, Total Volume: 1,000, Start date: 09/01/11 19:55:00, Duration: 30 day, Stop date: 10/01/11 19:54:00 vancomycin 1 gm, Route: IVPB No Longer Movva [facility] IVPB, Drug Active 2011 Medical form: INJ, Center [id number], Start date: 09/01/11 19:00:00, Duration: 30 day, Stop date: 10/01/11 7:00:00 insulin aspart 6 unit, 0.06 SUB-Q No Longer Movva [facility] mL, Route: Active 2011 Medical SUB-Q, Drug Center form: SOLN, TID-Before Meals, PRN Blood Glucose Results, Start date: 09/01/11 18:23:00, Duration: 30 day, Stop date: 10/01/11 18:22:00 glucagon 1 mg, Route: IM No Longer Movva [facility] IM, Drug Active 2011 Medical form: Center PDR/INJ, PRN, PRN Blood Glucose Results, Start date: 09/01/11 18:23:00, Duration: 30 day, Stop date: 10/01/11 18:22:00 Dextrose 50% 25 gm, 50 mL, IVP No Longer Movva [facility] Syringe Route: IVP, Active 2011 Medical Drug Form: [place] INJ, PRN, PRN Blood Glucose Results, Start date: 09/01/11 18:23:00, Duration: 30 day, Stop date: 10/01/11 18:22:00 morphine Sulfate 2 mg, 1 mL, IVP No Longer Beni [facility] Route: IVP, Active 2011 Medical Drug form: [place] INJ, Q4H, PRN Severe Pain, Start date: 09/01/11 16:14:00, Stop date: 10/01/11 16:13:00 Lactated Ringers 1,000 mL, IV No Longer [place] [facility] IV 1,000 mL Rate: 100 2011 Medical ml/hr, Infuse Center over: 10 hr, Route: IV, Dosing Weight 68.182 kg, Total Volume: 1,000, Start date: 09/01/11 14:03:00, Duration: 30 day, Stop date: 10/01/11 14:02:00 morphine Sulfate 4 mg, 1 mL, IVP No Longer [facility] Route: IVP, Active 2011 Medical Drug form: Center INJ, ONCE, Start date: 09/01/11 12:13:00, Stop date: 09/01/11 12:13:00 Lactated Ringers 2,000 mL, IV No Longer [facility] ([place]) IV 2,000 Rate: 100 Active 2011 Medical mL ml/hr, Infuse Center over: 20 hr, Route: IV, Dosing Weight 68.18 kg, Total Volume: 2,000, Start date: 09/01/11 10:42:00, Duration: 1 doses or times, Stop date: 09/02/11 6:41:00 Insulin regular 8 unit, 0.08 SUB-Q No Longer [facility] mL, Route: Active 2011 Medical SUB-Q, Drug Center form: SOLN, ONCE, Priority: STAT, Start date: 09/01/11 10:28:00, Stop date: 09/01/11 10:28:00 Sodium Chloride 1,000 mL, IV No Longer [place] 0.9% (Bolus) IV Rate: 1,000 Active 2011 Medical 1,000 mL ml/hr, Infuse Center over: 1 hr, Route: IV, Dosing Weight 68.18 kg, Total Volume: 1,000, [place] Dose, Priority: STAT, Start date: 09/01/11 9:53:00, Duration: 1 doses or times, Stop date: 09/01/11 10:52:00 morphine Sulfate 4 mg, 1 mL, IVP No Longer Sandeep [facility] Route: IVP, Active 2011 Medical Drug form: Center INJ, ONCE, Start date: 09/01/11 8:28:00, Stop date: 09/01/11 8:28:00 clindamycin 600 mg, 4 mL, IVPB No Longer Sandeep [place] Route: IVPB, Active 2011 Medical Drug form: Center INJ, ONCE, Priority: STAT, Start date: 09/01/11 8:20:00, Stop date: 09/01/11 8:20:00 Sodium Chloride 1,000 mL, IV No Longer [place] 0.9% (Bolus) IV Rate: 1,000 Active 2011 Medical 1000 mL ml/hr, Infuse Center over: 1 hr, Route: IV, Dosing Weight 68.182 kg, Total Volume: 1,000, [place] Dose, Priority: STAT, Start date: 09/01/11 5:41:00, Duration: 1 doses or times, Stop date: 09/01/11 6:40:00 ondansetron 4 mg, Route: IVP No Longer [place] [facility] IVP, Drug Active 2011 Medical form: INJ, Center ONCE, Priority: STAT, Start date: 09/01/11 4:06:00, Stop date: 09/01/11 4:06:00 morphine Sulfate 4 mg, Route: IVP No Longer Cruz[place] [facility] IVP, ONCE, Active 2011 Medical Priority: Center STAT, Start date: 09/01/11 4:06:00, Stop date: 09/01/11 4:06:00 Sodium Chloride 1,000 mL, IV No Longer [place] 0.9% (Bolus) IV Rate: 1,000 Active 2011 Medical 1000 mL ml/hr, Infuse Center over: 1 hr, Route: IV, Dosing Weight 68.182 kg, Total Volume: 1,000, [place] Dose, Priority: STAT, Start date: 09/01/11 3:42:00, Duration: 1 doses or times, Stop date: 09/01/11 4:41:00 Insulin regular 8 unit, 0.08 IVP No Longer [place] [facility] mL, Route: Active 2011 Medical IVP, Drug Center form: SOLN, ONCE, Priority: STAT, Start date: 09/01/11 3:30:00, Stop date: 09/01/11 3:30:00 Sodium Chloride 1,000 mL, IV No Longer [place] [facility] 0.9% (Bolus) IV Rate: 1,000 Active 2011 Medical 1,000 mL ml/hr, Infuse Center over: 1 hr, Route: IV, Dosing Weight 68.182 kg, Total Volume: 1,000, [place] Dose, Priority: STAT, Start date: 09/01/11 2:29:00, Duration: 1 doses or times, Stop date: 09/01/11 3:28:00 Insulin Nph 1700 Active 08/26/ [facility] Human 2011 [facility] Insulin Regular, 1700 Active 08/26[facility] Human 2011 [facility] potassium 40 mEq, 2 PO No Longer [facility] chloride tab, Route: Active 2011 Medical PO, Drug Center form: ERTAB, BID, Start date: 08/23/11 9:00:00, Duration: 2 doses or times, Stop date: 08/23/11 17:00:00 amLODipine 5 mg 5 mg, 1 tab, PO Active [facility] oral tablet PO, Daily, 30 2011 Medical tab, 3, 3, Center Substitution Allowed, TAB lisinopril 20 mg 40 mg, 2 tab, PO Active [facility] oral tablet PO, Daily, 60 2011 Medical tab, 3, 3, Center Substitution Allowed, TAB Novolin N 100 18 Units, SUB-Q Active [facility] [place] units/mL SUB-Q, BID, 3 2011 Medical subcutaneous vial, 3, 3, Center injection Substitution Allowed, SUSP insulin regular 5 Units, SUB-Q Active [facility] human SUB-Q, TID, 2011 Medical recombinant 100 30 vial, 3, Center units/mL 3, injectable Substitution solution Allowed, before breakfast lunch and dinner, SOLNbefore breakfast lunch and dinner potassium 20 mEq, 100 IVPB No Longer [facility] [place] chloride mL, Route: Active 2011 Medical IVPB, Drug Center form: INJ, Q2H, Start date: 08/23/11 8:00:00, Duration: 2 doses or times, Stop date: 08/23/11 10:00:00 calcium chloride 1 gm, Route: IVPB No Longer [facility] [place] IVPB, ONCE, Active 2011 Medical Priority: Center STAT, Start date: 08/23/11 7:28:00, Stop date: 08/23/11 7:28:00 potassium 40 mEq, IV No Longer [facility] [place] chloride Route: IV, Active 2011 Medical ONCE, Start Center date: 08/23/11 6:29:00, Stop date: 08/23/11 6:29:00 potassium 60 mEq, 3 PO No Longer [facility] [place] chloride 20 mEq tab, Route: Active 2011 Medical oral tablet, PO, Drug Center extended release form: ERTAB, ONCE, Start date: 08/23/11 6:27:00, Stop date: 08/23/11 6:27:00 magnesium 2 gm, 50 mL, IVPB No Longer [facility] [place] sulfate Route: IVPB, Active 2011 Medical Drug form: Center INJ, ONCE, Total dose=2 gm, Start date: 08/23/11 6:26:00, Duration: 1 doses or times, Stop date: 08/23/11 6:26:00 magnesium 2 gm, 50 mL, IVPB No Longer [facility] [place] sulfate Route: IVPB, Active 2011 Medical Drug form: Center INJ, ONCE, Total dose=2 gm, Start date: 08/22/11 10:26:00, Duration: 1 doses or times, Stop date: 08/22/11 10:26:00 calcium 1,000 mg, 10 IVPB No Longer [facility] [place] gluconate mL, Route: Active 2011 Medical IVPB, ONCE, Center Start date: 08/22/11 10:25:00, Stop date: 08/22/11 10:25:00 potassium 40 mEq, 2 PO No Longer [facility] chloride 20 mEq tab, Route: Active 2011 Medical oral tablet, PO, Drug Center extended release form: ERTAB, Daily, Start date: 08/22/11 9:00:00, Duration: 30 day, Stop date: 08/22/11 12:00:00 magnesium 2 gm, 50 mL, IVPB No Longer [facility] sulfate Route: IVPB, Active 2011 Medical Drug form: Center INJ, ONCE, Total dose=2 gm, Start date: 08/22/11 7:26:00, Duration: 1 doses or times, Stop date: 08/22/11 7:26:00 Geodon 120 mg, 3 PO No Longer [facility] cap, Route: Active 2011 Medical PO, Drug Center form: CAP, Bedtime, Start date: 08/21/11 21:00:00, Duration: 30 day, Stop date: 09/19/11 21:00:00 lisinopril 10 mg, 1 tab, PO No Longer [facility] Route: PO, Active 2011 Medical Drug form: Center TAB, ONCE, Start date: 08/21/11 14:06:00, Stop date: 08/21/11 14:06:00 potassium 20 mEq, 100 IVPB No Longer [facility] chloride mL, Route: Active 2011 Medical IVPB, Drug Center form: INJ, ONCE, Start date: 08/21/11 9:12:00, Stop date: 08/21/11 9:12:00 lisinopril 40 mg, 2 tab, PO No Longer [facility] Route: PO, Active 2011 Medical Drug form: Center TAB, Daily, Start date: 08/21/11 9:00:00, Stop date: 09/19/11 9:00:00 hydrALAZINE 10 mg, 0.5 IVP No Longer [facility] mL, Route: Active 2011 Medical IVP, Drug Center form: INJ, Q6H, PRN Hypertension, Start date: 08/21/11 8:43:00, Duration: 30 day, Stop date: 09/20/11 8:42:00 Geodon 60 mg, 3 cap, PO No Longer [facility] Route: PO, Active 2011 Medical Drug form: Center CAP, ONCE, Start date: 08/20/11 21:00:00, Stop date: 08/20/11 21:00:00 Cogentin 1 mg, 1 tab, PO No Longer [facility] Route: PO, Active 2011 Medical Drug form: Center TAB, Q12H, Start date: 08/20/11 21:00:00, Duration: 30 day, Stop date: 09/19/11 9:00:00 Phenergan 6.25 mg, 0.25 IVPB No Longer [facility] mL, Route: Active 2011 Medical IVPB, Drug Center form: INJ, Q6H, PRN Nausea & Vomiting, Start date: 08/20/11 15:41:00, Stop date: 09/19/11 15:40:00 Compazine 5 mg, 1 tab, PO No Longer [facility] Route: PO, Active 2011 Medical Drug form: Center TAB, Q6H, PRN Nausea & Vomiting, Start date: 08/20/11 14:30:00, Duration: 30 day, Stop date: 09/19/11 14:29:00 Zofran 4 mg, 2 mL, IVP No Longer [facility] Route: IVP, Active 2011 Medical Drug form: Center INJ, Q8H, PRN Nausea, Start date: 08/20/11 11:15:00, Duration: 30 day, Stop date: 09/19/11 11:14:00 insulin 10 unit, SUB-Q No Longer [facility] isophane-NPH Route: SUB-Q, Active 2011 Medical ONCE, Start Center date: 08/20/11 10:00:00, Stop date: 08/20/11 10:00:00 trazodone 100 mg 200 mg, 2 PO Active [facility] oral tablet tab, PO, 2011 Medical Bedtime, 90 Center tab, Substitution Allowed, TAB benztropine 1 mg 1 mg, 1 tab, PO Active [facility] oral tablet PO, BID, 60 2011 Medical tab, Center Substitution Allowed, TAB Geodon 60 mg 120 mg, 2 PO Active [place] oral capsule cap, PO, 2011 Medical Bedtime, 60 Center cap, Substitution Allowed, CAP insulin 10 unit, SUB-Q No Longer [facility] isophane-NPH Route: SUB-Q, Active 2011 Medical Q12H, Start Center date: 08/20/11 9:00:00, Duration: 30 day, Stop date: 09/18/11 21:00:00 Geodon 60 mg, 3 cap, PO No Longer [facility] Route: PO, Active 2011 Medical Drug form: [place] CAP, BID, Start date: 08/20/11 9:00:00, Duration: 30 day, Stop date: 09/18/11 17:00:00 Effexor XR 75 mg, 1 cap, PO No Longer [facility] Route: PO, Active 2011 Medical Drug form: [place] ERCAP, Daily, Start date: 08/20/11 9:00:00, Duration: 30 day, Stop date: 09/18/11 9:00:00 potassium 15 mmol, 5 IV No Longer [facility] phosphate mL, Route: Active 2011 Medical IV, ONCE, Center Start date: 08/20/11 8:30:00, Stop date: 08/20/11 8:30:00 potassium 20 mEq, 100 IVPB No Longer [facility] chloride mL, Route: Active 2011 [facility] IVPB, Drug Center form: INJ, Q2H, Total dose=80 mEq, Start date: 08/20/11 8:00:00, Duration: 4 doses or times, Stop date: 08/20/11 14:00:00 potassium 15 mmol, IVPB No Longer [facility] phosphate Route: IVPB, Active 2011 Medical PRN, PRN Center Abnormal Lab Result, Start date: 08/20/11 6:47:00, Duration: 30 day, Stop date: 09/19/11 7:46:00 Insulin regular 6 unit, 0.06 SUB-Q No Longer [facility] mL, Route: Active 2011 Medical SUB-Q, Drug Center form: SOLN, ONCE, Start date: 08/20/11 3:38:00, Stop date: 08/20/11 3:38:00 Insulin regular 10 unit, SUB-Q No Longer [facility] SUB-Q, BID, Active 2011 Medical Substitution Center Allowed insulin 10 unit, SUB-Q No Longer [facility] isophane-NPH SUB-Q, BID, Active 2011 Medical Substitution Center Allowed NS 1,000 mL 1,000 mL, IV No Longer [facility] Rate: 150 Active 2011 Medical ml/hr, Infuse Center over: 6.7 hr, Route: IV, Total Volume: 1,000, Start date: 08/20/11 3:06:00, Duration: 30 day, Stop date: 09/19/11 3:05:00 insulin aspart 3 unit, 0.03 SUB-Q No Longer [facility] mL, Route: Active 2011 Medical SUB-Q, Drug Center form: SOLN, Bedtime, PRN Blood Glucose Results, Start date: 08/20/11 3:06:00, Duration: 30 day, Stop date: 09/19/11 3:05:00 enoxaparin 40 mg, 0.4 SUB-Q No Longer [facility] mL, Route: Active 2011 Medical SUB-Q, Drug Center form: INJ, Daily, Priority: Routine, Start date: 08/20/11 3:00:00, Duration: 30 day, Stop date: 09/18/11 9:00:00 insulin 18 unit, 0.18 SUB-Q No Longer [facility] isophane-NPH mL, Route: Active 2011 Medical SUB-Q, Drug Center form: INJ, Q12H, Start date: 08/20/11 2:58:00, Stop date: 09/18/11 21:00:00 insulin aspart 2 unit, 0.02 SUB-Q No Longer [facility] mL, Route: Active 2011 Medical SUB-Q, Drug Center form: SOLN, TID-Before Meals, PRN Blood Glucose Results, Start date: 08/20/11 2:48:00, Duration: 30 day, Stop date: 09/19/11 2:47:00 glucagon 1 mg, Route: IM No Longer [facility] 08/19[facility] IM, Drug Active 2011 Medical form: Center PDR/INJ, PRN, PRN Blood Glucose Results, Start date: 08/20/11 2:48:00, Duration: 30 day, Stop date: 09/19/11 3:47:00 Dextrose 50% 25 gm, 50 mL, IVP No Longer [facility] 08/19[facility] Syringe Route: IVP, Active 2011 Medical Drug Form: Center INJ, PRN, PRN Blood Glucose Results, Start date: 08/20/11 2:48:00, Duration: 30 day, Stop date: 09/19/11 3:47:00 Insulin regular 3 unit, SUB-Q No Longer [facility] Route: SUB-Q, Active 2011 Medical Bedtime, PRN Center Blood Glucose Results, Start date: 08/20/11 2:48:00, Duration: 30 day, Stop date: 09/19/11 2:47:00 Dextrose 50% 25 gm, 50 ml, IVP No Longer [facility] 08/19[facility] Syringe Route: IVP, Active 2011 Medical Drug Form: Center INJ, PRN, PRN Blood Glucose Results, Start date: 08/20/11 2:46:00, Duration: 30 day, Stop date: 09/19/11 3:45:00 ondansetron 4 mg, Route: IVP No Longer [facility] 08/19[facility] IVP, Drug Active 2011 Medical form: INJ, Center ONCE, Priority: STAT, Start date: 08/20/11 1:42:00, Stop date: 08/20/11 1:42:00 GI cocktail 30 ml, Route: PO No Longer [facility] 08/19[facility] PO, Drug Active 2011 Medical Form: SUSP, Center ONCE, STAT, Start date: 08/19/11 23:12:00, Stop date: 08/19/11 23:12:00 ondansetron 4 mg, Route: PO No Longer [facility] 08/19[facility] PO, Drug Active 2011 Medical form: TABDIS, Center ONCE, Priority: STAT, Start date: 08/19/11 23:10:00, Stop date: 08/19/11 23:10:00 Lactated Ringers 1,000 mL, IV No Longer [facility] ([place]) IV 1000 Rate: 1,000 Active 2011 Medical mL ml/hr, Infuse Center over: 1 hr, Route: IV, Total Volume: 1,000, [place] Dose, Priority: STAT, Start date: 08/19/11 23:10:00, Duration: 1 doses or times, Stop date: 08/20/11 0:09:00 Insulin regular 7 unit, 0.07 SUB-Q No Longer [facility] mL, Route: Active 2011 Medical SUB-Q, Drug Center form: SOLN, ONCE, Priority: STAT, Start date: 08/19/11 22:15:00, Stop date: 08/19/11 22:15:00 Geodon 60 mg 60 mg, 1 cap, PO No Longer [facility] oral capsule PO, BID, 180 Active 2011 Medical cap, Center Substitution Allowed, CAP trazodone 300 mg 300 mg, 1 PO No Longer [facility] oral tablet tab, PO, Active 2011 Medical Bedtime, 15 Center tab, Substitution Allowed, TAB Effexor XR 75 mg 75 mg, 1 cap, PO Active [facility] oral capsule, PO, Daily, 30 2011 Medical extended release cap, Center Substitution Allowed Lactated Ringers 1,000 mL, IV No Longer [facility] IV 1,000 mL Rate: 250 Active 2011 Medical ml/hr, Infuse Center over: 4 hr, Route: IV, Total Volume: 1,000, Priority: STAT, Start date: 08/19/11 17:03:00, Duration: 30 day, Stop date: 09/18/11 17:02:00 Sodium Chloride 100 mL, Rate: IV No Longer [facility] 0.9% (titrate) Titrate, Active 2011 Medical 100 mL + Insulin Route: IV, Center (regular) Total Volume: Titrate IV 100 ml, additive 100 Duration: 30 unit day, Stop date: 09/18/11 16:16:00, Replace Every: 24 hr GI cocktail 40 mL, Route: PO No Longer [facility] PO, Drug Active 2011 Medical Form: SUSP, Center ONCE, STAT, Start date: 08/19/11 16:04:00, Stop date: 08/19/11 16:04:00 Protonix 40 mg, Route: IVP No Longer [facility] IVP, Drug Active 2011 Medical form: INJ, Center ONCE, Start date: 08/19/11 16:04:00, Stop date: 08/19/11 16:04:00 ondansetron 8 mg, Route: IVP No Longer [facility] IVP, Drug Active 2011 Medical form: INJ, Center ONCE, Priority: STAT, Start date: 08/19/11 15:57:00, Stop date: 08/19/11 15:57:00 morphine Sulfate 4 mg, Route: IVP No Longer [facility] IVP, ONCE, Active 2011 Medical Priority: Center STAT, Start date: 08/19/11 15:57:00, Stop date: 08/19/11 15:57:00 Reglan 10 mg, Route: IV No Longer [facility] IV, ONCE, Active 2011 Medical Start date: Center 08/19/11 15:57:00, Stop date: 08/19/11 15:57:00 Lactated Ringers 1,000 mL, IV No Longer [facility] ([place]) IV 1000 Rate: 1,000 Active 2011 Medical mL ml/hr, Infuse Center over: 1 hr, Route: IV, Total Volume: 1,000, [place] Dose, Priority: STAT, Start date: 08/19/11 15:12:00, Duration: 1 doses or times, Stop date: 08/19/11 16:11:00 Levofloxacin THREE TIMES A Active [facility] St[facility] DAY 2011 [facility] [place] Ziprasidone Hcl AT BEDTIME Active St. 2011 [facility] [place] Metronidazole TWICE DAILY Active St. 2011 [facility] [place] Trazodone Hcl AT BEDTIME Active St[facility] 2012 [facility] [place] Benztropine TWICE DAILY Active St. Mesylate PRN For 2011 [facility] [place] Metoclopramide BEFORE MEALS Active St[facility] Hcl 2011 [facility] [place] Tetracycline Hcl DAILY Active St[facility] 2012 [facility] [place] Venlafaxine Hcl DAILY Active [facility] 2011 [facility] [place] Allergies, Adverse Reactions, Alerts Substance Category Reaction Severity Reaction Status Date Comments Source type Reported codeine Hives Allergy to Active [facility] Substance 7 [facility] [place] zolpidem Itching/Hiv Moderate Allergy to Active [facility] tartrate es/Rash Substance 7 [facility] [place] fluphenazine ARM Allergy to Active [facility] enanthate NUMBNESS Substance 7 [facility] [place] fluphenazine ARM Allergy to Active [facility] HCl NUMBNESS Substance 7 [facility] [place] guaifenesin Hives Allergy to Active [facility] Substance 7 [facility] [place] Penicillins Hives Allergy to Active [facility] Substance 7 [facility] [place] phenylephrin Hives Allergy to Active [facility] HCl Substance 7 [facility] [place] lisinopril Anaphylaxis Allergy to Active [facility] Substance 7 [facility] [place] nitrofuranto liver Propensity Active [facility] in failure to adverse 8 [facility] [place] penicillins Assertion Drug Active [facility] Prolex DM Assertion Drug Active [facility] Ambien Assertion Drug Active [facility] Immunizations No Data Provided for This Section Results Order Name Results Value Reference Date Interpretation Comments Source Range Laboratory Hemoglobin 9.4 12.0 - 10/[address] [facility] Studies 15.0 [facility] [place] Laboratory Hematocrit 27.8 36.0 - 10/[address] [facility] [address] Studies 45.0 /2017 [facility] [place] Microbiolo Klebsiella Klebsiella 10/[address] [facility] [facility] Studies Pneumoniae Pneumoniae /2017 [facility] [place] Laboratory White Blood 6.3 4.3 - 10.9 10/[address] [facility] Studies Count /2017 [facility] [place] Laboratory Red Cell 13.8 12.1 - 10/[address] Studies Distribution 15.2 [facility] Width [place] Laboratory Red Blood 2.52 3.86 - 10/[address] Studies Count 4.86 /2017 [facility] [place] Laboratory Platelet 149 152 - 406 10/[address] [facility] [address] Studies Count /2017 [facility] [place] Laboratory Neutrophils 71.8 41.7 - 10/04 [facility] [address] Studies % 73.7 /2017 [facility] [place] Laboratory Monocytes % 6.9 3.3 - 12.3 10/04 St[facility] Studies /2017 [facility] [place] Laboratory Mean 10.1 7.6 - 11.3 10/04 [facility] [address] Studies Platelet /2017 [facility] Volume [place] Laboratory Mean 88.9 80 - 100 10/04 [facility]. Studies Corpuscular /2017 [facility] Volume [place] Laboratory Mean 33.5 32.0 - 10/[address] [facility] [address] Studies Corpuscular 36.0 /2017 [facility] Hemoglobin [place] Concent Laboratory Mean 29.8 27.0 - 10/04 [facility]. Studies Corpuscular 35.0 [facility] Hemoglobin [place] Laboratory Lymphocytes 16.4 15.3 - 10/04 [facility] [address] Studies % 44.8 /2017 [facility] [place] Laboratory Eosinophils 3.9 0 - 4.4 10/04 [facility] [address] Studies % /2017 [facility] [place] Laboratory Basophils % 1.0 0 - 1.3 10/04 [facility] [address] Studies /2017 [facility] [place] Laboratory Absolute 4.5 1.8 - 8.0 10/04 [facility] [address] Studies Neutrophil /2017 [facility] [place] Laboratory Absolute 0.4 0.1 - 1.3 10/04 [facility]. Studies Monocytes /2017 [facility] (CBC) [place] Laboratory Absolute 1.0 0.7 - 4.9 10/04 [facility] [address] Studies Lymphocytes /2017 [facility] (CBC) [place] Laboratory Absolute 0.2 0 - 0.5 10/04 [facility] [address] Studies Eosinophils /2017 [facility] (CBC) [place] Laboratory Absolute 0.1 0 - 0.5 10/04 [facility] [address] Studies Basophils /2017 [facility] (CBC) [place] Laboratory Urine pH 7.0 10/04 [facility] [address] Studies /2017 [facility] [place] Laboratory Urine Total Urine 10/04 [facility] [address] Studies Protein Total /2017 [facility] Protein [place] Laboratory Urine 1.020 10/04 [facility] [address] Studies Specific /2017 [facility] [place] Laboratory Urine Urine 10/04 [facility] Studies Nitrite Nitrite /2017 [facility] [place] Laboratory Urine Urine 10/04 [facility] Studies Leukocyte Leukocyte /2017 [facility] Esterase Esterase [place] Laboratory Urine Urine 10/04 [facility] Studies Ketones Ketones /2017 [facility] [place] Laboratory Urine Urine 10/04 [facility] Studies Glucose Glucose /2017 [facility] [place] Laboratory Urine Blood Urine 10/04 [facility]. Studies Blood /2017 [facility] [place] Laboratory Estimat 10 90 10/04 [facility] Studies Glomerular /2017 [facility] Filtration [place] Rate Laboratory Creatinine 4.92 0.44 - 10/04 [facility] Studies 1.00 /2017 [facility] [place] Laboratory Total 0.7 0.3 - 1.2 10/04 [facility] Studies Bilirubin /2017 [facility] [place] Laboratory Serum Total 5.8 6.0 - 8.3 10/04 [facility] Studies Protein /2017 [facility] [place] Laboratory Globulin 2.9 2.3 - 3.5 10/04 [facility]. Studies /2017 [facility] [place] Laboratory Blood Urea 69 6 - 20 10/04 [facility] Studies Nitrogen /2017 [facility] [place] Laboratory Aspartate 22 10 - 42 10/04 [facility] Studies Amino Transf /2017 [facility] - (AST/SGOT) [place] Laboratory Alkaline 64 42 - 121 10/04 [facility] Studies Phosphatase /2017 [facility] [place] Laboratory Albumin/Glob 1.0 1.1 - 1.8 10/04 [facility] Studies ulin Ratio /2017 [facility] [place] Laboratory Albumin 2.9 3.2 - 5.5 10/04 [facility]. Studies /2017 [facility] [place] Laboratory Alanine 13 10 - 60 10/04 [facility] Studies Aminotransfe /2017 [facility] - rase [facility] [place] (ALT/SGPT) Laboratory Sodium Level 141 135 - 145 10/04 [facility]. Studies /2017 [facility] [place] Laboratory Potassium 3.4 3.6 - 5.0 10/04 [facility] Studies Level /2017 [facility] [place] Laboratory Glucose 79 65 - 120 10/04 [facility]. Studies Level /2017 [facility] [place] Laboratory Chloride 110 101 - 111 10/04 [facility]. Studies Level /2017 [facility] [place] Laboratory Carbon 22 21 - 31 10/04 [facility]. Studies Dioxide /2017 [facility] Level [place] Laboratory Calcium 8.4 8.5 - 10.5 10/04 [facility] [address] Studies Level /2018 [facility] [place] Laboratory Urine WBC >50 10/04 [facility] [address] Studies /2017 [facility] [place] Laboratory Urine 0.2 10/04 [facility]. Studies Urobilinogen /2017 [facility] [place] Laboratory Urine <5 10/04 [facility]. Studies Squamous /2018 [facility] Epithelial [place] Cells Laboratory Urine RBC <5 10/04 [facility] [address] Studies /2017 [facility] [place] Laboratory Urine Urine 10/04 [facility]. Studies Culture Culture /2017 [facility] Reflexed Reflexed [place] Laboratory Urine Color Urine 10/04 [facility]. Studies Color /2017 [facility] [place] Laboratory Urine Urine 10/04 [facility]. Studies Bilirubin Bilirubin /2017 [facility] [place] Laboratory Urine <20 10/04 [facility]. Studies Bacteria /2017 [facility] [place] Laboratory Urine Urine 10/04 [facility]. Studies Appearance Appearance /2017 [facility] [place] Laboratory Bedside 98 65 - 120 09/10 [facility]. Studies Glucose /2017 [facility] [place] Laboratory Uric Acid 6.3 2.6 - 8.0 09/10 [facility] [address] Studies /2017 [facility] [place] Laboratory Phosphorus 4.5 2.5 - 4.3 09/10 [facility]. Studies Level /2017 [facility] [place] Laboratory Urine Urine 09/09 [facility] Studies /2017 [facility] Test Test [place] Laboratory Urine <5 09/09 [facility]. Studies Urothelial /2017 [facility] Cells [place] Laboratory Urine Urine 09/09 [facility]. Studies Hyaline Hyaline /2017 [facility] Casts Casts [place] Laboratory Urine Urine 09/09 [facility]. Studies Amorphous Amorphous /2017 [facility] Sediment Sediment [place] Laboratory Valproic <10.0 50 - 100 09/09 [facility]. Studies Acid /2017 [facility] - (Depakene) [place] Level Laboratory Creatine 13.1 0.3 - 4.0 09/09 [facility]. Studies Kinase MB /2017 [facility] [place] Laboratory Rapid <0.03 09/09 [facility]. Studies Troponin I /2017 [facility] [place] Laboratory Magnesium 1.8 1.8 - 2.5 09/09 [facility]. Studies Level /2017 [facility] [place] Laboratory Creatine 567 22 - 269 09/09 [facility]. Studies Kinase /2017 [facility] [place] Laboratory B-Type 3138 09/09 [facility]. Studies Natriuretic /2017 [facility] Peptide [place] Laboratory Direct 0.1 0 - 0.2 09/09 [facility]. Studies Bilirubin /2017 [facility] [place] Laboratory Amylase 71 28 - 100 09/09 [facility]. Studies Level /2017 [facility] [place] Laboratory Prothrombin 11.1 9.5 - 12.5 09/09 [facility]. Studies Time /2017 [facility] [place] Laboratory INR 0.94 09/09 [facility]. Studies Internationa /2017 [facility] l Normalized [place] Ratio Laboratory Activated 26.9 24.3 - 09/09 [facility]. Studies Partial 36.9 [facility] Thromboplast [place] Time Laboratory Lipase 32 22 - 51 09/09 [facility]. Studies /2017 [facility] [place] Laboratory Anti-Double <1 08/31 [facility] Studies Strand DNA /2017 [facility] Antibody [place] Laboratory Total 5.1 08/31 [facility]. Studies Protein /2017 [facility] [place] Laboratory Protein Protein 08/31 [facility] Studies Electrophore Electropho /2017 [facility] - sis M-Monster resis [place] 2 M-Monster 2 Laboratory Protein Protein 08/31 [facility]. Studies Electrophore Electropho /2017 [facility] - sis M-Monster resis [place] M-Monster Laboratory Protein Protein 08/31 [facility]. Studies Electrophore Electropho /2017 [facility] sis resis [place] Interpret Interpret Laboratory PEP Abnormal PEP 08/31 [facility] Studies Protein Band Abnormal /2017 [facility] - 3 Protein [place] Band 3 Laboratory Gamma 0.8 08/31 [facility]. Studies Globulins /2017 [facility] [place] Laboratory [id number] 0.8 08/31 [facility]. Studies ulins /2017 [facility] [place] Laboratory [id number] 0.4 08/31 [facility]. Studies ulins /2017 [facility] [place] Laboratory Albumin 2.4 08/31 [facility]. Studies /2017 [facility] [place] Laboratory Immunofixati Immunofixa 08/31 [facility]. Studies on tion [facility] - Electrophore Electropho [place] sis resis Laboratory Anti-Nuclear Anti-Nucle 08/31 [facility]. Studies Antibody ar /2017 [facility] Screen Antibody [place] Screen Laboratory Anti-Nuclear Anti-Nucle 08/31 [facility]. Studies Antibody ar [facility] - Pattern 2 Antibody [place] Pattern 2 Laboratory Erythropoiet 11.0 08/31 [facility]. Studies in /2017 [facility] [place] [facility] HIV-1 RNA, HIV-1 RNA, 08/31 [facility]. Studies Qualitat Qualitat /2017 [facility] (TMA) (TMA) [place] Comment Comment Laboratory HIV (1&2) Ag HIV (1&2) 08/31 [facility] Studies and Ab, 4th Ag and Ab, /2017 [facility] Generation 4th [place] Generation Laboratory HIV (1&2) Ab HIV (1&2) 08/31 [facility]. Studies Differential Ab /2017 [facility] Comment Differenti [place] al Comment Laboratory Haptoglobin 141 08/31 [facility]. Studies /2017 [facility] [place] [facility] Hepatitis C Hepatitis 08/31 [facility]. Studies Antibody C Antibody /2017 [facility] [place] [facility] Hepatitis C 0.06 08/31 [facility]. Studies Ab /2017 [facility] Signal/Cutof [place] f Ratio Laboratory Hepatitis B Hepatitis 08/31 [facility]. Studies Surface B Surface /2017 [facility] Antigen Antigen [place] [facility] Hepatitis B Hepatitis 08/31 [facility]. Studies Surface B Surface /2017 [facility] Antibody Antibody [place] [facility] Hepatitis B Hepatitis 08/31 [facility]. Studies Surface Ag B Surface /2017 [facility] Confirmation Ag [place] Confirmati on Laboratory Hepatitis B Hepatitis 08/31 [facility]. Studies Core IgM B Core IgM /2017 [facility] Antibody Antibody [place] [facility] Immunoglobul 206 08/31 [facility]. Studies in M [facility] [place] [facility] Immunoglobul 723 08/31 [facility]. Studies in G [facility] [place] [facility] Immunoglobul 274 08/31 [facility]. Studies in A [facility] [place] [facility] Rheumatoid Rheumatoid 08/31 [facility]. Studies Factor Factor /2017 [facility] [place] [facility] Miscellaneou Miscellane 08/31 [facility]. Studies s Test ous Test /2017 [facility] [place] [facility] Vitamin B12 423 180 914 08/31 [facility]. Studies Level /2017 [facility] [place] [facility] Transferrin 25.7 20.0 - 08/31 [facility]. Studies % Saturation 50.0 [facility] [place] [facility] Transferrin 103 192 - 382 08/[address] [facility] [address] Studies /2017 [facility] [place] [facility] Total Iron 144 250 - 460 08/31 [facility]. Studies Binding /2017 [facility] Capacity [place] [facility] Thyroid 4.34 0.34 - 08/31 [facility]. Studies Stimulating 5.60 [facility] Hormone [place] (TSH) Laboratory Serum Folate 7.8 5.21 [address] [facility] [address] Studies /2017 [facility] [place] [facility] Lactate 280 125 - 240 08/31 [facility]. Studies Dehydrogenas /2017 [facility] e [place] [facility] Iron Level 37.0 28 - 170 08/31 [facility]. Studies /2017 [facility] [place] [facility] Ferritin 255.8 11.0 - 08/31 [facility]. Studies 306.8 /2017 [facility] [place] [facility] C-Reactive 7.4 08/31 [facility]. Studies Protein /2017 [facility] [place] [facility] Segmented 60 40 - 80 08/31 [facility] Studies Neutrophils /2017 [facility] [place] [facility] Monocytes 3 0 - 10 08/31 [facility]. Studies /2017 [facility] [place] [facility] Lymphocytes 28 15 - 42 08/31 [facility]. Studies /2017 [facility] [place] [facility] Eosinophils 7 0 - 3 08/31 [facility]. Studies /2017 [facility] [place] [facility] Blood Blood 08/31 [facility] Studies Morphology Morphology /2017 [facility] Comment Comment [place] [facility] Basophils 1 0 - 1 08/31 [facility]. Studies /2017 [facility] [place] [facility] Band 1 0 - 1 08/31 [facility]. Studies Neutrophils /2017 [facility] [place] [facility] Sedimentatio 135 0 - 20 08/31 [facility]. Studies n Rate, /2017 [facility] [place] [facility] Percent 4.12 0.4 - 2.05 08/31 [facility] Studies Reticulocyte /2017 [facility] Count [place] [facility] Absolute 0.10 0.02 - 08/31 [facility] Studies Reticulocyte 0.11 [facility] [place] [facility] Hemoglobin 4.6 4 - 6.0 08/09 [facility]. Studies A1c /2017 [facility] [place] ELECTROLYT AGAP 14.6 10.0 - 02 [facility] 20.0 /2016 [facility] ELECTROLYT eGFR 33 07/30 Result [facility] [place] [facility] Comment: The Medical eGFR is Center calculated using the CKD-EPI formula. In most young, healthy individuals the eGFR will be >90 mL/min/1.73m2 . The eGFR declines with age. An eGFR of 60-89 may be normal in some populations, particularly the elderly, for whom the CKD-EPI formula has not been extensively validated. Use of the eGFR is not recommended in the following populations:< br/>
Anna viduals with unstable creatinine concentration s, including patients and those with serious co-morbid conditions.<b r/>
Patie nts with extremes in muscle mass or diet.

The data above are obtained from the National Kidney Disease Education Program (NKDEP) which additionally recommends that when the eGFR is used in patients with extremes of body mass index for purposes of drug dosing, the eGFR should be multiplied by the estimated BMI. ELECTROLYT Calcium Lvl 8.3 8.5 - 10.5 07/30 [facility] [place] [facility] [address] [place] [address] ELECTROLYT Glucose Lvl 81 70 - 99 07/[address] ELECTROLYT Creatinine 1.95 0.50 - 07/30 [facility] Lvl 1.40 [facility] ELECTROLYT BUN 55 7 - 22 07/[address] ELECTROLYT CO2 19 24 - 32 07/[address] ELECTROLYT Chloride Lvl 110 95 - 109 07/[address] ELECTROLYT Sodium Lvl 139 135 - 145 07/[address] ELECTROLYT Potassium 4.6 3.5 - 5.1 07/30 [facility] /2016 [facility] HEMATOLOGY Lymphocytes 30.4 20.0 - 02 [facility] 40.0 [facility] HEMATOLOGY Eosinophils 4.5 0.0 - 4.0 07/[address] HEMATOLOGY Monocytes 13.7 2.0 - 12.0 07/[address] HEMATOLOGY Segs-Bands # 2.6 1.5 - 8.1 07/[address] HEMATOLOGY Basophils 0.7 0.0 - 1.0 07/[address] HEMATOLOGY Monocytes # 0.7 0.0 - 0.8 07/30 /2016 [facility] HEMATOLOGY Lymphocytes 1.6 1.0 - 5.5 07/30 [facility] # /2016 [facility] HEMATOLOGY Eosinophils 0.2 0.0 - 0.5 07/30 [facility] # /2016 [facility] HEMATOLOGY Segs 50.7 45.0 - 07/30 [place] 75.0 /2016 [facility] HEMATOLOGY PB Smear Peripheral 07/30 [facility] blood [facility] smear Center shows hypochromi c normocytic anemia with anisopoiki locytsosis , no increase in schistocyt es, slight polychroma antonia, frequent eccinocyte s, occasional eliptocyte s, and moderate thrombocyt openia. Impression : (1) No evidence of microangio pathic hemolysis (2) RBC morphology is suggestive of anemia of chronic disease or iron deficiency anemia, and renal disease. CPT: 95406 HEMATOLOGY Hct 28.1 36.0 - 07/30 [place] 48.0 [facility] HEMATOLOGY RBC 3.39 4.20 - 07/30 [facility] 5.40 [facility] HEMATOLOGY Hgb 8.9 12.0 - 07/30 [facility] 16.0 [facility] HEMATOLOGY WBC 5.1 3.7 - 10.4 07/30 [facility] HEMATOLOGY MPV 11.3 7.4 - 10.4 07/30 [facility] HEMATOLOGY Platelet 118 133 - 450 07/30 [facility] HEMATOLOGY MCHC 31.8 32.0 - 07/30 [place] 36.0 /2016 [facility] HEMATOLOGY RDW 18.0 11.5 - 07/30 14.5 [facility] HEMATOLOGY MCV 83.0 80.0 - 07/30 [place] 98.0 [facility] HEMATOLOGY MCH 26.4 27.0 - 07/30 [place] 31.0 [facility] IMMUNOLOGY C3 137 88 - 201 07/30 [facility] Complement [facility] IMMUNOLOGY HIV. Negative Negative 07/30 [facility] *NA* /2016 [facility] (07/30/16 5:32 AM) [place] HEMATOLOGY PB Smear Peripheral 07/29 [facility] blood Medical smear Center shows hypochromi c normocytic anemia with anisopoiki locytsosis , no increase in schistocyt es, moderate polychroma antonia, frequent eccinocyte s, occasional eliptocyte s, and moderate thrombocyt openia. Impression : (1) No evidence of microangio pathic hemolysis (2) RBC morphology is suggestive of anemia of chronic disease or iron deficiency anemia, and renal disease. CPT: 29157 IMMUNOLOGY HIV. Negative Negative 07/29 [facility] *NA* /2016 Medical (07/29/16 5:05 AM) Center IMMUNOLOGY C3 92 88 - 201 07/29 [facility] CHEM PANEL eGFR 25 07/28 Result Comment: The [facility] eGFR is Center calculated using the CKD-EPI formula. In most young, healthy individuals the eGFR will be >90 mL/min/1.73m2 . The eGFR declines with age. An eGFR of 60-89 may be normal in some populations, particularly the elderly, for whom the CKD-EPI formula has not been extensively validated. Use of the eGFR is not recommended in the following populations:< br/>
Anna viduals with unstable creatinine concentration s, including patients and those with serious co-morbid conditions.<b r/>
Patie nts with extremes in muscle mass or diet.

The data above are obtained from the National Kidney Disease Education Program (NKDEP) which additionally recommends that when the eGFR is used in patients with extremes of body mass index for purposes of drug dosing, the eGFR should be multiplied by the estimated BMI. CHEM PANEL BUN 55 7 - 22 07/28 [facility] CHEM PANEL CO2 23 24 - 32 07/28 [facility] CHEM PANEL Chloride Lvl 109 95 - 109 07/28 [facility] CHEM PANEL Glucose Lvl 101 70 - 99 07/28 [facility] CHEM PANEL Potassium 4.0 3.5 - 5.1 07/[address] [facility] CHEM PANEL Sodium Lvl 141 135 - 145 07/28 [facility] CHEM PANEL AGAP 13.0 10.0 - 02 [facility] 20.0 [facility] CHEM PANEL Calcium Lvl 7.7 8.5 - 10.5 07/28 [facility] CHEM PANEL Creatinine 2.49 0.50 - 07/28 [facility] Lvl 1.40 /2016 [facility] HEMATOLOGY PT 14.8 12.0 - 02 [facility] 14.7 [facility] HEMATOLOGY PTT 40.8 22.9 - 02 [place] 35.8 /2016 [facility] HEMATOLOGY INR 1.14 0.85 - 02 [place] 1.17 /2016 [facility] IMMUNOLOGY C3 94 88 - 201 02 [place] Complement /2016 [facility] HEMATOLOGY Lymphocytes 1.7 1.0 - 5.5 07/28 [place] # /2016 [facility] HEMATOLOGY Segs-Bands # 2.7 1.5 - 8.1 07/28 [facility] HEMATOLOGY Eosinophils 0.1 0.0 - 0.5 07/28 [facility] # /2016 [facility] HEMATOLOGY Monocytes # 0.7 0.0 - 0.8 07/28 [facility] HEMATOLOGY Segs 51.3 45.0 - 02 [place] 75.0 /2016 [facility] HEMATOLOGY Lymphocytes 31.6 20.0 - 02 [place] 40.0 /2016 [facility] HEMATOLOGY Monocytes 14.1 2.0 - 12.0 07/[address] [place] [address] HEMATOLOGY Eosinophils 2.6 0.0 - 4.0 07/28 [facility] HEMATOLOGY Basophils 0.4 0.0 - 1.0 07/[address] [place] [address] HEMATOLOGY PB Smear Peripheral 07/28 [facility] Path blood /2016 Medical smear Center shows hypochromi c normocytic anemia with anisopoiki locytsosis , no increase in schistocyt es, slight polychroma antonia, a few estella cells, moderate thrombocyt openia. Impression : (1) no evidence of microangio pathic hemolysis, (2) RBC morphology is suggestive of anemia of chronic disease or iron deficiency anemia, and renal disease. CPT: 96382 HEMATOLOGY Hct 29.3 36.0 - 02 [place] 48.0 [facility] HEMATOLOGY Hgb 9.2 12.0 - 02 [place] 16.0 [facility] HEMATOLOGY RBC 3.54 4.20 - 02 [place] 5.40 /2016 [facility] HEMATOLOGY WBC 5.3 3.7 - 10.4 07/28 [facility] HEMATOLOGY Platelet 87 133 - 450 07/28 [facility] HEMATOLOGY MCHC 31.4 32.0 - 02 [place] 36.0 [facility] HEMATOLOGY RDW 17.9 11.5 - 02 [place] 14.5 [facility] HEMATOLOGY MPV 10.9 7.4 - 10.4 07/28 [facility] HEMATOLOGY MCH 26.0 27.0 - 07/28 [facility] 31.0 [facility] HEMATOLOGY MCV 82.8 80.0 - 07/28 [facility] 98.0 [facility] IMMUNOLOGY HIV. Negative Negative 07/28 [facility] *NA* /2016 Medical (07/28/16 4:35 AM) Center CARDIAC Total CK 190 12 - 191 07/27 [facility] ENZYMES [facility] CHEM PANEL Calcium Lvl 7.8 8.5 - 10.5 07/27 [facility]2016 [facility] CHEM PANEL CO2 21 24 - 32 07/27 [facility]2016 [facility] CHEM PANEL Sodium Lvl 140 135 - 145 07/27 [facility]2016 [facility] CHEM PANEL Potassium 3.8 3.5 - 5.1 07/[address] [facility] CHEM PANEL Chloride Lvl 106 95 - 109 07/27 [facility]2016 [facility] CHEM PANEL Bili Total 0.4 0.2 - 1.3 07/[address] CHEM PANEL Alk Phos 74 39 - 136 07/27 [facility] CHEM PANEL eGFR 19 07/27 [facility] Comment: The [facility] eGFR is Center calculated using the CKD-EPI formula. In most young, healthy individuals the eGFR will be >90 mL/min/1.73m2 . The eGFR declines with age. An eGFR of 60-89 may be normal in some populations, particularly the elderly, for whom the CKD-EPI formula has not been extensively validated. Use of the eGFR is not recommended in the following populations:< br/>
Anna viduals with unstable creatinine concentration s, including patients and those with serious co-morbid conditions.<b r/>
Patie nts with extremes in muscle mass or diet.

The data above are obtained from the National Kidney Disease Education Program (NKDEP) which additionally recommends that when the eGFR is used in patients with extremes of body mass index for purposes of drug dosing, the eGFR should be multiplied by the estimated BMI. CHEM PANEL Total 5.2 6.4 - 8.4 07/27 [facility] CHEM PANEL ALT 822 0 - 65 07/27 [facility] CHEM PANEL AST 205 0 - 37 07/27 [facility] CHEM PANEL Albumin Lvl 1.8 3.5 - 5.0 02/ [facility] CHEM PANEL BUN 54 7 - 22 02 [facility] CHEM PANEL Glucose Lvl 143 70 - 99 02 [facility] CHEM PANEL Creatinine 3.11 0.50 - 02 [place] Lvl 1.40 /2016 [facility] CHEM PANEL B/C Ratio 17 6 - 25 02 [facility] CHEM PANEL AGAP 16.8 10.0 - 02/ [place] 20.0 [facility] CHEM PANEL Globulin 3.4 2.7 - 4.2 02/ [facility] CHEM PANEL A/G Ratio 0.5 0.7 - 1.6 07/27 [facility] CHEM PANEL Magnesium 2.0 1.8 - 2.4 07/27 [facility] l /2016 [facility] CHEM PANEL Phosphorus 3.7 2.5 - 4.5 07/27 [facility] HEMATOLOGY RDW 17.7 11.5 - 02 14.5 [facility] HEMATOLOGY MCHC 32.9 32.0 - 02 [facility] 36.0 [facility] HEMATOLOGY Hct 25.4 36.0 - 02 48.0 [facility] HEMATOLOGY MCH 26.4 27.0 - 02 31.0 [facility] HEMATOLOGY MCV 80.3 80.0 - 02 [facility] 98.0 [facility] HEMATOLOGY MPV 11.4 7.4 - 10.4 07/27 [facility] HEMATOLOGY Platelet 74 133 - 450 02 [facility] HEMATOLOGY RBC 3.16 4.20 - 02/ [place] 5.40 [facility] HEMATOLOGY WBC 5.3 3.7 - 10.4 02 [facility] HEMATOLOGY Hgb 8.4 12.0 - 02/ 16.0 [facility] HEMATOLOGY Monocytes 14.5 2.0 - 12.0 02/ [facility] [address] [place] [address] HEMATOLOGY Lymphocytes 29.8 20.0 - 02/06 [place] 40.0 [facility] HEMATOLOGY Eosinophils 0.1 0.0 - 0.5 02/ [place] # /2016 Medical Center HEMATOLOGY Monocytes # 0.8 0.0 - 0.8 02 [facility] HEMATOLOGY Segs-Bands # 2.9 1.5 - 8.1 02 [facility] HEMATOLOGY Lymphocytes 1.6 1.0 - 5.5 02 [place] # /2016 [facility] HEMATOLOGY Basophils 0.4 0.0 - 1.0 07/27 [facility] HEMATOLOGY Eosinophils 1.2 0.0 - 4.0 07/27 [facility] HEMATOLOGY Segs 54.1 45.0 - 02 [place] 75.0 /2016 [facility] SPECIAL Hgb A1C 8.9 <=5.6 % 07/27 [facility] CHEMISTRY [facility] CARDIAC Total CK 344 12 - 191 07/26 [facility] ENZYMES [facility] IMMUNOLOGY IVETTE Positive Negative 07/26 [facility] *ABN* [facility] (07/26/16 11:40 AM) [place] IMMUNOLOGY SASH FINISHER Ab <0.2 <=0.9 AI 07/26 [facility] IMMUNOLOGY Sm Ab <0.2 <=0.9 AI 07/26 [facility] IMMUNOLOGY IVETTE Interp Pattern 07/26 [facility] IMMUNOLOGY SS-B (La) Ab <0.2 <=0.9 AI 07/26 [facility] IMMUNOLOGY SS-A (Ro) Ab <0.2 <=0.9 AI 07/26 [facility] IMMUNOLOGY DNA Ab (DS) Negative Negative 07/26 [facility] (07/26/16 11:40 AM) [facility] IMMUNOLOGY IVETTE Titer 1:40 Negative 07/26 [place] *ABN* [facility] (07/26/16 11:40 AM) Center URINE CHEM U Sodium 21 07/26 [facility] HEMATOLOGY INR 1.11 0.85 - 02 [place] 1.17 [facility] HEMATOLOGY PT 14.5 12.0 - 02 [place] 14.7 [facility] IMMUNOLOGY Hep A IgM Negative Negative 07/26 [place] *NA* [facility] (07/26/16 8:00 AM) Center IMMUNOLOGY Hep B Core Negative Negative 07/26 [facility] IgM *NA* [facility] (07/26/16 8:00 AM) Center IMMUNOLOGY Hep C Ab Negative 07/26 [place] *NA* [facility] (07/26/16 8:00 AM) [place] IMMUNOLOGY Hep Bs Ag Negative [facility] (07/26/16 8:00 AM) [place] CHEM PANEL B/C Ratio 17 6 - 25 07/[address] CHEM PANEL ALT 1232 0 - 65 07/[address] CHEM PANEL A/G Ratio 0.5 0.7 - 1.6 07/[address] CHEM PANEL Bili Total 0.3 0.2 - 1.3 07/[address] CHEM PANEL Alk Phos 79 39 - 136 07/[address] CHEM PANEL AST 586 0 - 37 07/[address] CHEM PANEL Total 5.5 6.4 - 8.4 07/26 [facility]2016 [facility] CHEM PANEL Globulin 3.7 2.7 - 4.2 07/[address] CHEM PANEL Albumin Lvl 1.8 3.5 - 5.0 07/[address] CHEM PANEL Magnesium 2.1 1.8 - 2.4 07/[address] [facility] /[address] [place] [address] HEMATOLOGY Acanthocyte Slight 07/[address] HEMATOLOGY Rouleaux Present None Seen 07/26 [facility] (07/26/16 4:42 AM) [place] HEMATOLOGY Anisocyte 1+ None Seen 07/26 [facility] (07/26/16 4:42 AM) [place] HEMATOLOGY Basophils # 0.1 0.0 - 0.2 07/[address] HEMATOLOGY Large Plt Moderate None Seen 07/26 [facility] (07/26/16 4:42 AM) [place] IMMUNOLOGY C4 42 16 - 47 07/26 [facility] [address] [place] [address] URINE AND UA Sq Epi None Seen 07/[address] URINE AND UA Waxy Cast 1 <=0 /LPF 07/[address] URINE AND UA Hyal Cast 4 0 - 2 07/[address] URINE AND UA Bacteria Occasional None Seen 07/25 [facility] STOOL /HPF /HPF /[address] [place] [address] URINE AND UA Mucus Few /LPF None Seen 07/25 [facility] STOOL /LPF /[address] [place] [address] URINE AND UA Amorph Occasional None Seen 07/25 [facility] STOOL Destiny /HPF /HPF /2016 [facility] URINE AND UA Leuk Est Negative Negative 07/25 [facility] (07/25/16 10:34 AM) /2016 [facility] URINE AND UA Nitrite Negative Negative 07/25 [facility] (07/25/16 10:34 AM) [facility] URINE AND UA RBC 2 0 - 2 07/25 [facility] URINE AND UA WBC 6 0 - 5 07/25 [facility] URINE AND UA 2.0 0.1 - 1.0 07/25 [facility] Urobilinogen /2016 [facility] URINE AND UA Ketones Negative Negative 07/25 [facility] mg/dL mg/dL [facility] URINE AND UA Glucose 70 mg/dL Negative 07/25 [facility] mg/dL [facility] URINE AND UA Blood Negative Negative 07/25 [facility] (07/25/16 10:34 AM) [facility] URINE AND UA Bili Negative Negative 07/25 [facility] *NA* /2016 [facility] (07/25/16 10:34 AM) [place] URINE AND UA Protein >=300 Negative 07/25 [facility] mg/dL mg/dL [facility] URINE AND UA Spec Grav 1.012 <=1.030 07/25 [facility] [address] [place] [address] URINE AND UA pH 5.5 5.0 - 8.0 07/25 [facility] [address] [place] [address] URINE AND UA Turbidity Slight Clear 07/25 [facility] *ABN* [facility] (07/25/16 10:34 AM) [place] URINE AND UA Color Dark Yellow Yellow 07/25 [facility] *NA* /2016 [facility] (07/25/16 10:34 AM) Center URINE AND UA Gran Cast 9 07/25 [facility] URINE CHEM U Sodium 30 07/25 [facility] [address] [place] [address] URINE CHEM U Prot/Creat 3.1 07/25 [facility] [address] [place] [address] URINE CHEM U Protein 420.9 07/25 [facility] [address] [place] [address] URINE CHEM U Creatinine 136.00 07/25 [facility] [address] [place] [address] CHEM PANEL Magnesium 2.0 1.8 - 2.4 07/25 [facility] Lvl [facility] CHEM PANEL Phosphorus 5.2 2.5 - 4.5 07/25 [facility] [place] /2017 [facility] CARDIAC Troponin-I 0.28 0.00 - 07/24 [place] ENZYMES 0.40 /2017 Medical Center CARDIAC Total CK 2616 12 - 191 07/24 [place] ENZYMES /2017 Medical Center CARDIAC Troponin-T 0.144 0.000 - 07/24 Result [place] ENZYMES 0.100 Comment: [facility] Critical [facility] Result(s) called to Jennifer Reardon at 07/24/2016 13:00 byMIA. Read back OK. CARDIAC CK MB Index 0.2 0.0 - 2.5 07/24 [place] ENZYMES /2017 Medical Center CARDIAC CK MB 6.3 0.5 - 3.6 07/24 [place] ENZYMES /2017 Medical Center CARDIAC Troponin-I 0.38 0.00 - 07/24 [place] ENZYMES 0.40 [facility] Center CARDIAC Troponin-T 0.173 0.000 - 07/24 Result [place] ENZYMES 0.100 Comment: [facility] Result(s) called to Nora Salcedo at 07/24/2016 07:48 byMIA. Read back OK. CARDIAC CK MB Index 0.2 0.0 - 2.5 07/24 [place] ENZYMES /2017 [facility] CARDIAC CK MB 5.6 0.5 - 3.6 07/24 [place] ENZYMES /2017 [facility] CHEM PANEL Phosphorus 5.5 2.5 - 4.5 07/24 [facility] CARDIAC BNP 701 <=100 07/24 [place] ENZYMES pg/mL /2016 [facility] CARDIAC Troponin-I 0.57 0.00 - 07/24 Result [place] ENZYMES 0.40 Comment: [facility] Result(s) called to Chriss Morales at 07/23/2016 23:25 by AC. Read back OK. CARDIAC BNP 526 <=100 06/15 [place] ENZYMES pg/mL /2015 [facility] CHEM PANEL Magnesium 2.1 1.8 - 2.4 06/15 [place] Lvl /2015 [facility] CHEM PANEL Glucose Lvl 117 70 - 99 06/15 [facility] CHEM PANEL BUN 41 7 - 22 06/15 [facility] CHEM PANEL Creatinine 2.00 0.50 - 06/15 [place] Lvl 1.40 [facility] CHEM PANEL Calcium Lvl 9.0 8.5 - 10.5 06/15 [facility] CHEM PANEL Chloride Lvl 102 95 - 109 06/15 [facility] CHEM PANEL CO2 33 24 - 32 06/15 [facility] CHEM PANEL Sodium Lvl 144 135 - 145 06/15 [facility] CHEM PANEL Potassium 4.0 3.5 - 5.1 06/15 [facility] Lvl [facility] CHEM PANEL eGFR 32 06/15 Result Comment: The Medical eGFR is Center calculated using the CKD-EPI formula. In most young, healthy individuals the eGFR will be >90 mL/min/1.73m2 . The eGFR declines with age. An eGFR of 60-89 may be normal in some populations, particularly the elderly, for whom the CKD-EPI formula has not been extensively validated. Use of the eGFR is not recommended in the following populations:< br/>
Anna viduals with unstable creatinine concentration s, including patients and those with serious co-morbid conditions.<b r/>
Patie nts with extremes in muscle mass or diet.

The data above are obtained from the National Kidney Disease Education Program (NKDEP) which additionally recommends that when the eGFR is used in patients with extremes of body mass index for purposes of drug dosing, the eGFR should be multiplied by the estimated BMI. CHEM PANEL AGAP 13.0 10. - 06/15 [facility] 20. [facility] CHEM PANEL Phosphorus 4.6 2.5 - 4.5 06/15 [facility] HEMATOLOGY RBC 3.68 4.20 - 06/15 [place] 5.40 /2015 [facility] HEMATOLOGY Hgb 9.9 12.0 - 06/15 [place] 16.0 [facility] HEMATOLOGY MCH 26.8 27.0 - 06/15 [place] 31.0 [facility] HEMATOLOGY MCHC 34.2 32.0 - 06/15 [place] 36.0 [facility] HEMATOLOGY MCV 78.3 80.0 - 06/15 [place] 98.0 [facility] HEMATOLOGY Hct 28.8 36.0 - 06/15 [place] 48.0 [facility] HEMATOLOGY Platelet 191 133 - 450 06/15 [facility] HEMATOLOGY MPV 9.5 7.4 - 10.4 06/15 [facility] HEMATOLOGY RDW 15.3 11.5 - 06/15 [facility] [place] 14.5 [facility] HEMATOLOGY WBC 5.6 3.7 - 10.4 06/15 [facility] HEMATOLOGY Eosinophils 0.5 0.0 - 0.5 06/15 [facility] # [facility] HEMATOLOGY Microcyte 1+ None Seen 06/15 [facility] *ABN* Medical (06/15/16 4:22 AM) [place] HEMATOLOGY Basophils # 0.1 0.0 - 0.2 06/15 [facility] HEMATOLOGY Lymphocytes 33.5 20.0 - 06/15 [place] 40.0 [facility] HEMATOLOGY Segs 47.6 45.0 - 06/15 [place] 75.0 [facility] HEMATOLOGY Monocytes 8.4 2.0 - 12.0 06/15 [facility] HEMATOLOGY Eosinophils 9.4 0.0 - 4.0 06/15 [facility] HEMATOLOGY Segs-Bands # 2.6 1.5 - 8.1 06/15 [facility] HEMATOLOGY Lymphocytes 1.9 1.0 - 5.5 06/15 [facility] # [facility] HEMATOLOGY Basophils 1.1 0.0 - 1.0 06/15 [facility] HEMATOLOGY Monocytes # 0.5 0.0 - 0.8 06/15 [facility] CHEM PANEL Phosphorus 4.8 2.5 - 4.5 06/14 [facility] CHEM PANEL Magnesium 2.0 1.8 - 2.4 06/14 [facility] Lvl [facility] CHEM PANEL eGFR 32 06/14 [facility] Comment: The Medical eGFR is Center calculated using the CKD-EPI formula. In most young, healthy individuals the eGFR will be >90 mL/min/1.73m2 . The eGFR declines with age. An eGFR of 60-89 may be normal in some populations, particularly the elderly, for whom the CKD-EPI formula has not been extensively validated. Use of the eGFR is not recommended in the following populations:< br/>
Anna viduals with unstable creatinine concentration s, including patients and those with serious co-morbid conditions.<b r/>
Patie nts with extremes in muscle mass or diet.

The data above are obtained from the National Kidney Disease Education Program (NKDEP) which additionally recommends that when the eGFR is used in patients with extremes of body mass index for purposes of drug dosing, the eGFR should be multiplied by the estimated BMI. CHEM PANEL Chloride Lvl 101 95 - 109 06/14 [facility] CHEM PANEL Potassium 4.4 3.5 - 5.1 06/14 [facility] Lvl [facility] CHEM PANEL BUN 37 7 - 22 06/14 2015 [facility] CHEM PANEL Glucose Lvl 119 70 - 99 06/14 [facility] CHEM PANEL Creatinine 2.00 0.50 - 06/14 [place] Lvl 1.40 [facility] CHEM PANEL Sodium Lvl 142 135 - 145 06/14 2015 [facility] CHEM PANEL Calcium Lvl 8.7 8.5 - 10.5 06/14 2015 [facility] CHEM PANEL CO2 32 24 - 32 06/14 [facility] CHEM PANEL AGAP 13.4 10.0 - 06/14 [facility] 20.0 [facility] HEMATOLOGY Eosinophils 10.3 0.0 - 4.0 06/14 [facility] HEMATOLOGY Basophils # 0.1 0.0 - 0.2 06/14 [facility] HEMATOLOGY Eosinophils 0.5 0.0 - 0.5 06/14 [facility] HEMATOLOGY Monocytes # 0.5 0.0 - 0.8 06/14 [facility] HEMATOLOGY Segs-Bands # 2.1 1.5 - 8.1 06/14 [facility] HEMATOLOGY Basophils 1.2 0.0 - 1.0 06/14 [facility] HEMATOLOGY Lymphocytes 1.9 1.0 - 5.5 06/14 [facility] HEMATOLOGY Segs 42.5 45.0 - 06/14 [place] 75.0 [facility] HEMATOLOGY Lymphocytes 37.0 20.0 - 06/14 [place] 40.0 [facility] HEMATOLOGY Monocytes 9.0 2.0 - 12.0 06/14 [facility]2015 [facility] HEMATOLOGY MPV 9.8 7.4 - 10.4 06/14 [facility]2015 [facility] HEMATOLOGY WBC 5.0 3.7 - 10.4 06/14 [facility] HEMATOLOGY RBC 3.57 4.20 - 06/14 [place] 5.40 [facility] HEMATOLOGY Hgb 9.4 12.0 - 06/14 [facility] [place] 16.0 /2015 [facility] HEMATOLOGY Hct 28.5 36.0 - 06/14 [place] 48.0 /2016 [facility] HEMATOLOGY Platelet 183 133 - 450 06/14 /2015 [facility] HEMATOLOGY MCV 79.9 80.0 - 06/14 [place] 98.0 /2015 [facility] HEMATOLOGY MCH 26.3 27.0 - 06/14 [place] 31.0 /2015 [facility] HEMATOLOGY MCHC 33.0 32.0 - 06/14 [place] 36.0 /2015 [facility] HEMATOLOGY RDW 15.9 11.5 - 06/14 [place] 14.5 /2015 [facility] URINE CHEM U Prot/Creat 6.9 06/13 /2015 [facility] URINE CHEM U Creatinine 19.30 06/13 /2015 [facility] URINE CHEM U Protein 133.1 06/13 /2015 [facility] HEMATOLOGY MPV 9.7 7.4 - 10.4 06/13 /2015 [facility] HEMATOLOGY Platelet 184 133 - 450 06/13 /2015 [facility] HEMATOLOGY RDW 15.9 11.5 - 06/13 [place] 14.5 /2015 [facility] HEMATOLOGY MCV 79.3 80.0 - 06/13 [place] 98.0 /2015 [facility] HEMATOLOGY MCHC 33.0 32.0 - 06/13 [place] 36.0 /2015 [facility] HEMATOLOGY MCH 26.2 27.0 - 06/13 [place] 31.0 /2015 [facility] HEMATOLOGY Hct 29.4 36.0 - 06/13 [place] 48.0 /2015 [facility] HEMATOLOGY Hgb 9.7 12.0 - 06/13 [place] 16.0 [facility] HEMATOLOGY RBC 3.70 4.20 - 06/13 [place] 5.40 /2016 [facility] HEMATOLOGY WBC 5.7 3.7 - 10.4 06/13 /2015 [facility] HEMATOLOGY Basophils # 0.1 0.0 - 0.2 06/13 /2016 [facility] HEMATOLOGY Lymphocytes 2.2 1.0 - 5.5 06/13 [place] # /2016 [facility] HEMATOLOGY Eosinophils 0.5 0.0 - 0.5 06/13 [place] # /2016 [facility] HEMATOLOGY Monocytes # 0.5 0.0 - 0.8 06/13 /2016 [facility] HEMATOLOGY Basophils 1.1 0.0 - 1.0 06/13 [facility] HEMATOLOGY Segs-Bands # 2.3 1.5 - 8.1 12 [facility] HEMATOLOGY Eosinophils 9.5 0.0 - 4.0 12 [facility] HEMATOLOGY Monocytes 9.0 2.0 - 12.0 06/13 [facility] HEMATOLOGY Lymphocytes 38.9 20.0 - 12 [place] 40.0 [facility] HEMATOLOGY Segs 41.5 45.0 - 12/ [place] 75.0 /2016 [facility] CHEM PANEL Magnesium 1.7 1.8 - 2.4 12 [facility] Lvl [facility] CHEM PANEL Phosphorus 4.2 2.5 - 4.5 06/13 [facility] ELECTROLYT AGAP 14.3 10.0 - 06/13 [facility] [place] [facility] 20.0 [facility] ELECTROLYT eGFR 41 06/13 [facility] Comment: The [facility] eGFR is Center calculated using the CKD-EPI formula. In most young, healthy individuals the eGFR will be >90 mL/min/1.73m2 . The eGFR declines with age. An eGFR of 60-89 may be normal in some populations, particularly the elderly, for whom the CKD-EPI formula has not been extensively validated. Use of the eGFR is not recommended in the following populations:< br/>
Anna viduals with unstable creatinine concentration s, including patients and those with serious co-morbid conditions.<b r/>
Patie nts with extremes in muscle mass or diet.

The data above are obtained from the National Kidney Disease Education Program (NKDEP) which additionally recommends that when the eGFR is used in patients with extremes of body mass index for purposes of drug dosing, the eGFR should be multiplied by the estimated BMI. ELECTROLYT Chloride Lvl 103 95 - 109 12 [facility] ELECTROLYT Calcium Lvl 8.5 8.5 - 10.5 06/13 [facility] ELECTROLYT CO2 32 24 - 32 06/13 [facility] [place] [facility] ELECTROLYT Glucose Lvl 173 70 - 99 06/13 [facility] [place] [facility] ELECTROLYT BUN 37 7 - 22 06/13 [facility] [place] [facility] ELECTROLYT Creatinine 1.63 0.50 - 12 [facility] [place] ES Lvl 1.40 [facility] ELECTROLYT Potassium 4.3 3.5 - 5.1 06/13 [facility] ES Lvl [facility] ELECTROLYT Sodium Lvl 145 135 - 145 06/13 [facility] ES [facility] CHEM PANEL Ammonia 48.0 <=45.0 06/11 [facility] uMol/L [facility] IMMUNOLOGY IVETTE Interp Pattern 06/11 [facility] Medical Nucleolar. Center IMMUNOLOGY IVETTE Titer 1:40 Negative 06/11 [place] *ABN* /2016 Medical (06/11/16 8:56 AM) Center IMMUNOLOGY Hep Bs Ag Negative Negative 06/11 [place] *NA* /2015 Medical (06/11/16 8:56 AM) Center IMMUNOLOGY Hep C Ab Negative 06/11 [place] *NA* /2015 Medical (06/11/16 8:56 AM) Center IMMUNOLOGY Hep B Core Negative Negative 06/11 [place] IgM *NA* Medical (06/11/16 8:56 AM) Center IMMUNOLOGY Hep A IgM Negative Negative 06/11 [place] *NA* /2015 Medical (06/11/16 8:56 AM) Center IMMUNOLOGY HIV Ag/Ab Negative Negative 06/11 [facility] 4th Gen *NA* Medical (06/11/16 8:56 AM) Center IMMUNOLOGY IVETTE Positive Negative 06/11 [place] *ABN* /2015 Medical (06/11/16 8:56 AM) Center CHEM PANEL Bili Total 0.1 0.2 - 1.3 06/11 [facility] CHEM PANEL Total 5.2 6.4 - 8.4 06/11 [facility] Protein [facility] CHEM PANEL Albumin Lvl 1.6 3.5 - 5.0 06/11 [facility] CHEM PANEL B/C Ratio 20 6 - 25 06/11 [facility] CHEM PANEL Globulin 3.6 2.7 - 4.2 06/11 [facility] CHEM PANEL A/G Ratio 0.4 0.7 - 1.6 06/11 [facility] CHEM PANEL Alk Phos 74 39 - 136 06/11 [facility] CHEM PANEL ALT 14 0 - 65 06/11 /2015 [facility] CHEM PANEL AST 13 0 - 37 06/11 /2015 [facility] HEMATOLOGY INR 1.06 0.85 - 06/11 [place] 1.17 /2015 [facility] HEMATOLOGY PT 14.0 12.0 - 06/11 [place] 14.7 /2015 [facility] HEMATOLOGY PTT 36.4 22.9 - 06/11 [place] 35.8 /2015 [facility] SPECIAL Hgb A1C 10.5 <=5.6 % 06/11 [facility] CHEMISTRY /2015 [facility] CARDIAC CK MB Index 1.8 0.0 - 2.5 06/11 [facility] ENZYMES /2015 [facility] CARDIAC CK MB 2.9 0.5 - 3.6 06/11 [facility] ENZYMES /2015 [facility] CARDIAC Troponin-T 0.061 0.000 - 06/11 [place] ENZYMES 0.100 /2015 [facility] CARDIAC Total CK 159 12 - 191 06/11 [facility] ENZYMES [facility] CARDIAC Troponin-I <0.02 0.00 - 06/11 [place] ENZYMES 0.40 [facility] CHEM PANEL Bili Total 0.2 0.2 - 1.3 06/11 [facility] CHEM PANEL Bili Direct 0.1 0.0 - 0.3 06/11 [place] [facility] CHEM PANEL Bili 0.1 0.0 - 1.0 06/11 [facility] Indirect [facility] CHEM PANEL Total 5.7 6.4 - 8.4 06/11 [facility] Protein [facility] CHEM PANEL A/G Ratio 0.5 0.7 - 1.6 06/11 [facility] CHEM PANEL Albumin Lvl 1.8 3.5 - 5.0 06/11 [facility] CHEM PANEL Globulin 3.9 2.7 - 4.2 06/11 [facility] CHEM PANEL Alk Phos 99 39 - 136 06/11 [place] [facility] CHEM PANEL AST 21 0 - 37 06/11 [facility] CHEM PANEL ALT 17 0 - 65 06/11 [place] [facility] DRUG UDS Note See Note 06/11 [place] SCREEN *NA* Medical (06/10/16 8:08 PM) Center DRUG U Propoxyph Negative Negative 06/11 [place] SCREEN Scr *NA* Medical (06/10/16 8:08 PM) Center DRUG U Opiate Scr Negative Negative 06/11 [place] SCREEN *NA* Medical (06/10/16 8:08 PM) Center DRUG U Methadone Negative Negative 06/11 [facility] [place] SCREEN Scr *NA* /2015 Medical (06/10/16 8:08 PM) Center DRUG U Phencyc Negative Negative 06/11 [place] SCREEN Scr *NA* Medical (06/10/16 8:08 PM) Center DRUG U Cannab Scr Negative Negative 06/11 [place] SCREEN *NA* Medical (06/10/16 8:08 PM) Center DRUG U Amph Scr Negative Negative 06/11 [place] SCREEN *NA* Medical (06/10/16 8:08 PM) Center DRUG U Kelly Scr Negative Negative 06/11 [place] SCREEN *NA* /2015 Medical (06/10/16 8:08 PM) Center DRUG U Benzodia Negative Negative 06/11 [facility] SCREEN Scr *NA* Medical (06/10/16 8:08 PM) Center DRUG U Cocaine Negative Negative 06/11 [facility] SCREEN Scr *NA* Medical (06/10/16 8:08 PM) [place] LIPIDS LDL 75 <=99 mg/dL 06/11 [facility] (Calculated) [facility] LIPIDS VLDL 27 06/11 [facility] LIPIDS Chol 133 <=199 06/11 [facility] mg/dL [facility] LIPIDS Trig 133 <=149 06/11 [facility] mg/dL [facility] LIPIDS CHD Risk 4.29 3.90 - 06/11 [facility] 5.80 [facility] LIPIDS HDL 31 >=61 mg/dL 06/11 [facility] URINE AND UA <=1.0 0.1 - 1.0 06/11 [facility] STOOL Urobilinogen mg/dL [facility] URINE AND UA Ketones Negative Negative 06/11 [facility] STOOL mg/dL mg/dL /2015 [facility] URINE AND UA Glucose 300 mg/dL Negative 06/11 [facility] STOOL mg/dL /2015 [facility] URINE AND UA Protein >=300 Negative 06/11 [facility] STOOL mg/dL mg/dL [facility] URINE AND UA pH 6.0 5.0 - 8.0 06/11 [facility] STOOL [facility] URINE AND UA Nitrite Negative Negative 06/11 [facility] STOOL (06/10/16 8:08 PM) /2015 [facility] URINE AND UA Blood Trace Negative 06/11 [facility] STOOL *ABN* Medical (06/10/16 8:08 PM) Center URINE AND UA Bili Negative Negative 06/11 [facility] STOOL *NA* /2015 [facility] (06/10/16 8:08 PM) Center URINE AND UA Mucus Few /LPF None Seen 06/11 [facility] STOOL /LPF /2015 [facility] URINE AND UA RBC 4 0 - 2 06/11 [facility] URINE AND UA Sq Epi Few /LPF Few /LPF 06/11 [facility] URINE AND UA WBC 5 0 - 5 06/11 [facility] /2015 [facility] URINE AND UA Leuk Est Small Negative 06/11 [facility] *ABN* [facility] (06/10/16 8:08 PM) [place] URINE AND UA Hyal Cast 1 0 - 2 06/11 [facility] URINE AND UA Spec Grav 1.009 <=1.030 06/11 [facility] URINE AND UA Color Yellow Yellow 06/11 [facility] *NA* [facility] (06/10/16 8:08 PM) [place] URINE AND UA Turbidity Clear Clear 06/11 [facility] (06/10/16 8:08 PM) /2015 [facility] URINE CHEM U Preg Negative Negative 06/11 [facility] (06/10/16 8:08 PM) [facility] URINE CHEM U Protein 375.4 06/11 [facility] URINE CHEM U Prot/Creat 5.4 06/11 [facility] /2015 [facility] URINE CHEM U Creatinine 69.80 06/11 [facility] /[address] [place] [address] CARDIAC BNP 1135 <=100 06/10 [facility] ENZYMES pg/mL [facility] CARDIAC Troponin-I <0.02 0.00 - 06/10 [facility] ENZYMES 0.40 [facility] CHEM PANEL Lactic Acid 0.9 0.5 - 2.2 06/26 [facility] WB /2014 [facility] TOXICOLOGY Valproic 10 50 - 100 06/26 [facility] Acid Lvl /2014 [facility] ENDOCRINOL hCG Tot 1 06/26 <sup>3</sup>I [facility] OGY nterpretive Medical Data: Center Reference Range:
Male 0 - 5 mIU/mL
Non- Female 0 - 5 mIU/mL
<b r/>Note: hCG result should be used in conjunction with symptoms, results
o f other tests, and clinical impressions.& lt;br/>
W eeks of Gestation hCG (mIU/mL)
----- ---
3 6 - 71
4 10-750
5 217 - 7,138
6 158 -31,795
7 3,697 - 163,563
8 32,065 - 149,571
9 63,803 - 151,410
10 46,506 - 186,977
11 27,832 - 210,612
14 13,950 - 62,530
15 12,039 - 70,971
16 9,040 - 56,451
17 8,175 - 55,868
18 8,099 - 58,176 CHEM PANEL Albumin Lvl 3.2 3.5 - 5.0 06/[address] CHEM PANEL Total 6.6 6.4 - 8.4 06/26 [facility] Protein [address] CHEM PANEL Bili Total 0.6 0.2 - 1.3 06/[address] CHEM PANEL Alk Phos 59 39 - 136 06/[address] CHEM PANEL AST 11 0 - 37 06/[address] CHEM PANEL ALT 17 0 - 65 06/[address] CHEM PANEL eGFR 99 06/26 <sup>1</sup>R [place] [address] esult Medical Comment: The Center eGFR is calculated using the CKD-EPI formula. In most young, healthy individuals the eGFR will be >90 mL/min/1.73m2 . The eGFR declines with age. An eGFR of 60-89 may be normal in some populations, particularly the elderly, for whom the CKD-EPI formula has not been extensively validated. Use of the eGFR is not recommended in the following populations:& lt;br/>
I ndividuals with unstable creatinine concentration s, including patients and those with serious co-morbid conditions.<b r/>
Patie nts with extremes in muscle mass or diet.

The data above are obtained from the National Kidney Disease Education Program (NKDEP) which additionally recommends that when the eGFR is used in patients with extremes of body mass index for purposes of drug dosing, the eGFR should be multiplied by the estimated BMI. CHEM PANEL Glucose Lvl 314 70 - 99 06/26 <sup>2</sup>I nterpretive Medical Data: Adult Center reference range values reflect the clinical guidelines
of the [place] [employer]. CHEM PANEL Potassium 3.4 3.5 - 5.1 06/26 [facility] CHEM PANEL BUN 11 7 - 22 06/[address] CHEM PANEL Creatinine 0.8 0.5 - 1.4 06/[address] CHEM PANEL Sodium Lvl 134 135 - 145 06/[address] CHEM PANEL Chloride Lvl 94 95 - 109 06/[address] CHEM PANEL Calcium Lvl 9.1 8.5 - 10.5 06/[address] CHEM PANEL CO2 24 24 - 32 06/[address] CHEM PANEL A/G Ratio 0.9 0.7 - 1.6 06/[address] CHEM PANEL Globulin 3.4 2.0 - 4.0 06/[address] CHEM PANEL B/C Ratio 14 6 - 25 06/[address] CHEM PANEL AGAP 19.4 10.0 - 06/26 [facility] 20.0 [facility] CHEM PANEL Lipase Lvl 81 73 - 393 06/[address] HEMATOLOGY Large Plt Slight 06/[address] HEMATOLOGY Basophils # 0.0 0.0 - 0.2 06/[address] HEMATOLOGY Anisocyte 1+ None Seen 06/26 [facility] *ABN* [facility] (06/26/14 5:21 AM) [place] HEMATOLOGY Monocytes # 0.6 0.0 - 0.8 06/[address] HEMATOLOGY Eosinophils 0.1 0.0 - 0.5 06/26 [facility]2014 [facility] HEMATOLOGY Lymphocytes 2.5 1.0 - 5.5 06/26 [facility]2014 [facility] HEMATOLOGY Segs 63.3 45.0 - 06/26 [place] 75.0 /2014 [facility] HEMATOLOGY Segs-Bands # 5.6 1.5 - 8.1 06/26 [facility] HEMATOLOGY Basophils 0.0 0.0 - 1.0 06/26 [facility] HEMATOLOGY Eosinophils 0.9 0.0 - 4.0 06/26 [facility] HEMATOLOGY Monocytes 7.0 2.0 - 12.0 06/26 [facility] HEMATOLOGY Lymphocytes 28.8 20.0 - 06/26 [place] 40.0 /2014 [facility] HEMATOLOGY WBC 8.8 3.7 - 10.4 06/26 [facility] HEMATOLOGY RBC 5.19 4.20 - 06/26 5.40 /2014 [facility] HEMATOLOGY Hgb 14.4 12.0 - 06/26 16.0 /2014 [facility] HEMATOLOGY Hct 43.1 36.0 - 06/26 48.0 /2014 [facility] HEMATOLOGY MCV 83.1 80.0 - 06/26 98.0 /2014 [facility] HEMATOLOGY MCH 27.8 27.0 - 06/26 31.0 /2014 [facility] HEMATOLOGY RDW 13.1 11.5 - 06/26 14.5 [facility] HEMATOLOGY MCHC 33.5 32.0 - 06/26 36.0 /2014 [facility] HEMATOLOGY Platelet 201 133 - 450 06/26 [facility] HEMATOLOGY MPV 10.4 7.4 - 10.4 06/26 [facility] URINALYSIS UA [place] Yeast Occasional None Seen 04/15 ABN /HPF [facility] URINALYSIS UA Mucus Few /LPF None Seen 04/15 Normal [facility] URINALYSIS UA Sq Epi Moderate Few 04/15 ABN /LPF /2012 [facility] URINALYSIS Micro? Performed 04/15 Normal (04/14/2013 23:48:55) [facility] URINALYSIS UA WBC 0-2 /HPF None Seen 04/15 Normal [facility] URINALYSIS UA Bacteria Occasional None Seen 04/15 Normal /HPF [facility] URINALYSIS UA Glucose 500 mg/dL Negative 04/15 ABN [facility] URINALYSIS UA Bili Negative Negative 04/15 *NA* /2012 [facility] (04/14/2013 23:48:55) URINALYSIS UA Ketones Trace Negative 04/15 ABN *ABN* [facility] (04/14/2013 23:48:55) URINALYSIS UA Blood Negative Negative 04/15 Normal (04/14/2013 23:48:55) [facility] URINALYSIS UA 0.2 0.1 - 1.0 04/15 Normal Urobilinogen [facility] URINALYSIS UA Nitrite Negative Negative 04/15 Normal (04/14/2013 23:48:55) [facility] URINALYSIS UA Leuk Est Negative Negative 04/15 Normal (04/14/2013 23:48:55) [facility] URINALYSIS UA Turbidity Clear Clear 04/15 Normal (04/14/2013 23:48:55) [facility] URINALYSIS UA Color Yellow Yellow 04/15 *NA* [facility] (04/14/2013 23:48:55) URINALYSIS UA pH 7.0 5.0 - 8.0 04/15 [facility] URINALYSIS UA Spec Grav 1.025 <=1.030 04/15 Normal [facility] URINALYSIS UA Protein Trace Negative 04/15 ABN *ABN* [facility] (04/14/2013 23:48:55) CHEMISTRY S Preg Negative Negative 04/15 *NA* [facility] (04/14/2013 23:28:00) CHEMISTRY Lipase Lvl 233 73 - 393 04/15 Normal [facility] CHEMISTRY Globulin 4.1 2.0 - 4.0 04/15 HI [facility] CHEMISTRY AGAP 10.5 10.0 - 04/15 Normal 20.0 [facility] CHEMISTRY B/C Ratio 6 6 - 25 04/15 Normal [facility] CHEMISTRY A/G Ratio 0.7 0.7 - 1.6 04/15 Normal [facility] CHEMISTRY eGFR 130 04/15 <sup>1</sup>R esult [facility] Comment: The eGFR is calculated using the CKD-EPI formula. In most young, healthy individuals the eGFR will be >90 mL/min/1.73m2 . The eGFR declines with age. An eGFR of 60-89 may be normal in some populations, particularly the elderly, for whom the CKD-EPI formula has not been extensively validated. Use of the eGFR is not recommended in the following populations:& lt;br/>
I ndividuals with unstable creatinine concentration s, including patients and those with serious co-morbid conditions.<b r/>
Patie nts with extremes in muscle mass or diet.

The data above are obtained from the National Kidney Disease Education Program (NKDEP) which additionally recommends that when the eGFR is used in patients with extremes of body mass index for purposes of drug dosing, the eGFR should be multiplied by the estimated BMI. CHEMISTRY Albumin Lvl 2.9 3.5 - 5.0 04/15 LOW [facility] CHEMISTRY ASPARTATE 20 0 - 37 04/15 Normal TRANSAMINASE [facility] CHEMISTRY Bili Total 0.5 0.2 - 1.3 04/15 Normal [facility] CHEMISTRY Alk Phos 89 39 - 136 04/15 Normal [facility] CHEMISTRY ALANINE 11 0 - 65 04/15 Normal AMINOTRANS [facility] RAS CHEMISTRY Creatinine 0.5 0.5 - 1.4 04/15 Normal [facility] CHEMISTRY BUN 3 7 - 22 04/15 LOW [facility] CHEMISTRY Glucose Lvl 255 70 - 99 04/15 HI <sup>2</sup>I nterpretive [facility] Data: Adult reference range values reflect the clinical guidelines
of the [place] [employer]. CHEMISTRY Total 7.0 6.4 - 8.4 04/15 Normal [facility] CHEMISTRY Calcium Lvl 8.7 8.5 - 10.5 04/15 Normal [facility] CHEMISTRY CO2 29 24 - 32 04/15 Normal [facility] CHEMISTRY Chloride Lvl 104 95 - 109 04/15 Normal [facility] CHEMISTRY Potassium 3.5 3.5 - 5.1 04/15 Normal [facility] CHEMISTRY Sodium Lvl 140 135 - 145 04/15 Normal [facility] HEMATOLOGY PROTIME 12.1 12.0 - 04/15 Normal 14.7 [facility] HEMATOLOGY aPTT 39.0 22.9 - 04/15 HI <sup>4</sup>I 35.8 nterpretive [facility] Data: Heparin Therapeutic Range: 57 - 92 Seconds HEMATOLOGY INR 0.90 0.85 - 04/15 Normal <sup>3</sup>I 1. nterpretive [facility] Data: RECOMMENDED RANGES FOR PROTIME INR:
2.0-3.0 for most medical and surgical thromboemboli c states.
2.5-3.5 for artificial heart valves and recurrent embolism.<br/ >
INR SHOULD BE USED ONLY FOR PATIENTS ON STABLE ANTICOAGULANT THERAPY. HEMATOLOGY MCH 29.4 27.0 - 04/15 Normal MH 31.0 /2012 [facility] HEMATOLOGY MCV 86.1 81.0 - 04/15 Normal MH 99.0 /2012 [facility] HEMATOLOGY Hct 29.4 36.0 - 04/15 LOW MH 48.0 /2012 [facility] HEMATOLOGY RDW 14.0 11.5 - 04/15 Normal MH 14.5 [facility] HEMATOLOGY WBC X 10x3 6.2 3.7 - 10.4 04/15 Normal [facility] HEMATOLOGY Platelet 178 133 - 450 04/15 Normal /2012 [facility] HEMATOLOGY MCHC 34.1 32.0 - 04/15 Normal MH 36.0 [facility] HEMATOLOGY RBC X 10x6 3.41 4.20 - 04/15 LOW MH 5.40 /2012 [facility] HEMATOLOGY Hgb 10.0 12.0 - 04/15 LOW MH 16.0 [facility] HEMATOLOGY MPV 10.1 7.4 - 10.4 04/15 Normal [facility] HEMATOLOGY Segs-Bands # 4.4 1.5 - 8.1 04/15 Normal [facility] HEMATOLOGY Basophils 0.7 0.0 - 1.0 04/15 Normal [facility] HEMATOLOGY Segs 70.7 45.0 - 04/15 Normal MH 75.0 [facility] HEMATOLOGY Monocytes # 0.3 0.0 - 0.8 04/15 Normal [facility] HEMATOLOGY Lymphocytes 1.2 1.0 - 5.5 04/15 Normal MH # /2012 [facility] HEMATOLOGY Monocytes 4.5 2.0 - 12.0 04/15 Normal [facility] HEMATOLOGY Eosinophils 4.1 0.0 - 4.0 04/15 HI MH /2012 [facility] HEMATOLOGY Lymphocytes 20.0 20.0 - 04/15 Normal MH 40.0 [facility] HEMATOLOGY Basophils # 0.0 0.0 - 0.2 04/15 Normal /2012 [facility] HEMATOLOGY Eosinophils 0.3 0.0 - 0.5 04/15 Normal MH # /2012 [facility] BEDSIDE Gluc POC 260 70 - 99 09/25 HI <sup>1</sup>I GLUCOSE [place] /2011 nterpretive [facility] TESTING Data: Upper Reportable Limit: 200 mg/dL. BEDSIDE Comment1 Notify 03/15 [facility] GLUCOSE RN/ [facility] TESTING URINALYSIS UA Protein Trace Negative 03/14 ABN *ABN* /2011 [facility] (03/14/2012 18:40:00) URINALYSIS UA pH 6.0 5.0 - 8.0 03/14 Normal [facility] URINALYSIS UA Ketones >=80 mg/dL Negative 03/14 NA *NA* /2011 [facility] (03/14/2012 18:40:00) URINALYSIS UA Glucose >=1000 mg/dL Negative 03/14 [facility] *ABN* [facility] (03/14/2012 18:40:00) URINALYSIS UA Blood Negative Negative 03/14 Normal (03/14/2012 18:40:00) [facility] URINALYSIS UA Nitrite Negative Negative 03/14 Normal (03/14/2012 18:40:00) [facility] URINALYSIS UA 0.2 0.1 - 1.0 03/14 Normal Urobilinogen [facility] URINALYSIS UA Leuk Est Negative Negative 03/14 Normal (03/14/2012 18:40:00) [facility] URINALYSIS UA Bili Negative Negative 03/14 [facility] *NA* [facility] (03/14/2012 18:40:00) URINALYSIS UA Turbidity Clear Clear 03/14 Normal (03/14/2012 18:40:00) [facility] URINALYSIS UA Color Yellow Yellow 03/14 [facility] *NA* [facility] (03/14/2012 18:40:00) URINALYSIS UA Spec Grav >=1.030 <=1.030 03/14 ABN *ABN* [facility] (03/14/2012 18:40:00) URINALYSIS UA Sq Epi Occasional /LPF Few 03/14 Normal (03/14/2012 18:40:00) [facility] URINALYSIS UA WBC 3-5 /HPF None Seen 03/14 Normal (03/14/2012 18:40:00) [facility] URINALYSIS UA Bacteria Occasional /HPF None Seen 03/14 Normal (03/14/2012 18:40:00) [facility] CHEMISTRY S Preg Negative Negative 03/14 NA MH *NA* /2011 [facility] (03/14/2012 17:50:00) CHEMISTRY Lipase Lvl 45 73 - 393 03/14 LOW /2011 [facility] CHEMISTRY A/G Ratio 1.2 0.7 - 1.6 03/14 Normal [facility] CHEMISTRY Globulin 3.8 2.0 - 4.0 03/14 Normal [facility] CHEMISTRY B/C Ratio 21 6 - 25 03/14 Normal [facility] CHEMISTRY AGAP 16.8 10.0 - 03/14 Normal MH 20.0 /2011 [facility] CHEMISTRY Bili Total 1.1 0.2 - 1.3 03/14 Normal [facility] CHEMISTRY Total 8.2 6.4 - 8.4 03/14 Normal MH Protein [facility] CHEMISTRY Potassium 3.8 3.5 - 5.1 03/14 Normal MH [facility] CHEMISTRY Creatinine 0.7 0.5 - 1.4 03/14 Normal MH [facility] CHEMISTRY Sodium Lvl 139 135 - 145 03/14 Normal [facility] CHEMISTRY Chloride Lvl 99 95 - 109 03/14 Normal [facility] CHEMISTRY CO2 27 24 - 32 03/14 Normal [facility] CHEMISTRY Glucose Lvl 301 70 - 99 03/14 HI <sup>2</sup>I nterpretive [facility] Data: Adult reference range values reflect the clinical guidelines
of the [place] [employer]. CHEMISTRY BUN 15 7 - 22 03/14 Normal [facility] CHEMISTRY ALT 24 0 - 65 03/14 Normal [facility] CHEMISTRY AST 20 0 - 37 03/14 Normal [facility] CHEMISTRY Alk Phos 67 39 - 136 03/14 Normal [facility] CHEMISTRY Albumin Lvl 4.4 3.5 - 5.0 03/14 Normal [facility] CHEMISTRY Calcium Lvl 9.9 8.5 - 10.5 03/14 Normal [facility] HEMATOLOGY MPV 11.8 7.4 - 10.4 03/14 HI /2011 [facility] HEMATOLOGY MCHC 35.9 32.0 - 03/14 Normal MH 36.0 /2011 [facility] HEMATOLOGY MCH 31.2 27.0 - 03/14 HI [facility] 31.0 /2011 [facility] HEMATOLOGY Platelet 189 133 - 450 03/14 Normal [facility] HEMATOLOGY RDW 13.1 11.5 - 03/14 Normal MH 14.5 /2011 [facility] HEMATOLOGY Hct 40.7 36.0 - 03/14 Normal MH 48.0 /2011 [facility] HEMATOLOGY Hgb 14.6 12.0 - 03/14 Normal MH 16.0 /2011 [facility] HEMATOLOGY MCV 87.0 81.0 - 03/14 Normal MH 99.0 /2011 [facility] HEMATOLOGY WBC 11.7 3.7 - 10.4 03/14 HI MH /2011 [facility] HEMATOLOGY RBC 4.68 4.20 - 03/14 Normal MH 5.40 /2011 [facility] HEMATOLOGY Basophils # 0.0 0.0 - 0.2 03/14 Normal MH /2011 [facility] HEMATOLOGY Basophils 0.2 0.0 - 1.0 03/14 Normal MH /2011 [facility] HEMATOLOGY Eosinophils 0.0 0.0 - 0.5 03/14 Normal MH # /2011 [facility] HEMATOLOGY Monocytes # 0.4 0.0 - 0.8 03/14 Normal MH /2011 [facility] HEMATOLOGY Segs-Bands # 10.6 1.5 - 8.1 03/14 HI MH /2011 [facility] HEMATOLOGY Lymphocytes 0.7 1.0 - 5.5 03/14 LOW MH # /2011 [facility] HEMATOLOGY Monocytes 3.4 2.0 - 12.0 03/14 Normal MH /2011 [facility] HEMATOLOGY Plt Morph Normal 03/14 Normal (03/14/2012 17:50:00) /2011 [facility] HEMATOLOGY Lymphocytes 6.0 20.0 - 03/14 LOW MH 40.0 /2011 [facility] HEMATOLOGY Eosinophils 0.0 0.0 - 4.0 03/14 Normal MH /2011 [facility] HEMATOLOGY Segs 90.4 45.0 - 03/14 HI 75.0 /2011 [facility] HEMATOLOGY RBC Morph Normal 03/14 Normal (03/14/2012 17:50:00) /2011 [facility] BEDSIDE Gluc POC 167 70 - 99 11/29 HI <sup>1</sup>I [facility] GLUCOSE [place] /2011 nterpretive Medical TESTING Data: Center Upper Reportable Limit: 200 mg/dL. BEDSIDE Comment1 Notify 11/29 NA [facility] GLUCOSE RN/ /2011 Medical TESTING Center BEDSIDE Comment2 Sliding 11/29 NA [facility] GLUCOSE Scale /2011 Medical TESTING Center BEDSIDE Gluc POC 189 70 - 99 11/29 HI <sup>2</sup>I [facility] GLUCOSE [place] /2011 nterpretive Medical TESTING Data: [place] Upper Reportable Limit: 200 mg/dL. BEDSIDE Comment1 Notify 11/29 NA [facility] GLUCOSE RN/ /2011 Medical TESTING Center BEDSIDE Comment2 Sliding 11/29 NA [facility] GLUCOSE Scale /2011 Medical TESTING Center BEDSIDE Comment2 Sliding 11/29 NA [facility] GLUCOSE Scale /2011 Medical TESTING Center BEDSIDE Gluc POC 110 70 - 99 11/29 HI <sup>3</sup>I [facility] GLUCOSE [facility] nterpretive Medical TESTING Data: Center Upper Reportable Limit: 200 mg/dL. BEDSIDE Comment1 Notify 11/29 NA [facility] GLUCOSE RN/ /2011 Medical TESTING Center CHEMISTRY U Preg Negative Negative 11/28 Normal [facility] (11/28/2011 19:00:00) Medical Center URINALYSIS Micro? Performed 11/28 Normal [facility] (11/28/2011 19:00:00) Medical Center URINALYSIS UA Sq Epi Occasional /LPF Few 11/28 Normal [facility] (11/28/2011 19:00:00) Medical Center URINALYSIS UA RBC None Seen 0 - 2 11/28 Normal [facility] (11/28/2011 19:00:00) Medical Center URINALYSIS UA WBC Occasional 0 - 5 11/28 NA [facility] URINALYSIS UA Protein Negative mg/dL Negative 11/28 Normal [facility] (11/28/2011 19:00:00) Medical Center URINALYSIS UA pH 7.0 5.0 - 8.0 11/28 Normal [facility] URINALYSIS UA Spec Grav 1.020 <=1.030 11/28 Normal [facility] Center URINALYSIS UA Turbidity Clear Clear 11/28 Normal [facility] (11/28/2011 19:00:00) Medical Center URINALYSIS UA Color Yellow Yellow 11/28 [facility] *NA* Medical (11/28/2011 19:00:00) Center URINALYSIS UA 0.2 0.1 - 1.0 11/28 Normal [facility] Urobilinogen /2011 Medical Center URINALYSIS UA Blood Negative Negative 11/28 Normal [facility] (11/28/2011 19:00:00) Medical Center URINALYSIS UA Bili Negative Negative 11/28 [facility] *NA* Medical (11/28/2011 19:00:00) Center URINALYSIS UA Ketones >=80 mg/dL Negative 11/28 ABN [facility] *ABN* Medical (11/28/2011 19:00:00) Center URINALYSIS UA Glucose >=1000 mg/dL Negative 11/28 ABN [facility] *ABN* Medical (11/28/2011 19:00:00) Center URINALYSIS UA Nitrite Negative Negative 11/28 Normal [facility] (11/28/2011 19:00:00) Medical Center URINALYSIS UA Leuk Est Negative Negative 11/28 Normal [facility] (11/28/2011 19:00:00) Medical Center CHEMISTRY pO2 [place] 60 20 - 49 11/27 HI Medical Center CHEMISTRY pCO2 [place] 41 38 - 52 11/27 Normal Medical Center CHEMISTRY pH [place] 7.45 7.28 - 11/27 [facility] 7.42 Medical Center CHEMISTRY Temp [place] 37.0 11/27 NA Medical Center CHEMISTRY O2 Sat [place] 92.0 40.0 - 11/27 [facility] [place] 70.0 Medical Center CHEMISTRY BE [place] 4 -2-2 - 2 11/27 HI [facility] Center CHEMISTRY HCO3 [place] 28.5 22.0 - 11/27 [facility] [place] 26.0 Medical Center CHEMISTRY Lactic Acid 1.6 0.5 - 2.2 11/[address] [facility] Medical Center CHEMISTRY Lipase Lvl 125 73 - 393 11/27 Normal Medical Center CHEMISTRY Albumin Lvl 4.2 3.5 - 5.0 11/27 Normal Medical Center CHEMISTRY CO2 23 24 - 32 11/27 LOW Medical Center CHEMISTRY Chloride Lvl 98 95 - 109 11/27 Normal Medical Center CHEMISTRY Potassium 3.8 3.5 - 5.1 11/27 Normal [facility] Center CHEMISTRY Sodium Lvl 138 135 - 145 11/27 Normal Medical Center CHEMISTRY Creatinine 0.7 0.5 - 1.4 11/[address] [facility] Medical Center CHEMISTRY BUN 9 7 - 22 11/27 Normal Medical Center CHEMISTRY Glucose Lvl 269 70 - 99 11/27 HI <sup>4</sup>I nterpretive Medical Data: Adult Center reference range values reflect the clinical guidelines of the [place] [employer]. CHEMISTRY B/C Ratio 13 6 - 25 11/27 Normal [facility] CHEMISTRY AGAP 20.8 10.0 - 11/27 [facility] [place] 20.0 /2011 [facility] CHEMISTRY Calcium Lvl 9.3 8.5 - 10.5 11/27 Normal [facility] CHEMISTRY Total 6.7 6.4 - 8.4 11/27 Normal [facility] Protein [facility] CHEMISTRY A/G Ratio 1.7 0.7 - 1.6 11/27 HI [facility] CHEMISTRY Globulin 2.5 2.0 - 4.0 11/27 Normal [facility] CHEMISTRY AST 18 0 - 37 11/27 Normal [facility] CHEMISTRY Alk Phos 62 39 - 136 11/27 Normal [facility] CHEMISTRY ALT 32 0 - 65 11/27 Normal [facility] CHEMISTRY Bili Total 0.7 0.2 - 1.3 11/27 Normal [facility] HEMATOLOGY Anisocyte 1+ None Seen 11/[facility] (11/28/2011 15:00:00) Center HEMATOLOGY Monocytes # 0.1 0.0 - 0.8 11/27 Normal [facility] HEMATOLOGY Eosinophils 0.0 0.0 - 0.5 11/27 Normal [facility] # [facility] HEMATOLOGY Basophils # 0.0 0.0 - 0.2 11/27 Normal [facility] HEMATOLOGY Neut Vac Slight None Seen 11/27 [facility] (11/28/2011 15:00:00) Center HEMATOLOGY Large Plt Slight None Seen 11/27 [facility] (11/28/2011 15:00:00) Center HEMATOLOGY Segs-Bands # 5.7 1.5 - 8.1 11/27 Normal [facility] Center HEMATOLOGY Lymphocytes 0.8 1.0 - 5.5 11/27 LOW [place] # /2011 [facility] Center HEMATOLOGY Eosinophils 0.2 0.0 - 4.0 11/27 Normal [facility] HEMATOLOGY Basophils 0.0 0.0 - 1.0 11/27 Normal [facility] HEMATOLOGY Monocytes 1.9 2.0 - 12.0 11/27 LOW [facility] HEMATOLOGY Segs 86.2 45.0 - 11/27 HI MH [place] 75.0 /2011 [facility] HEMATOLOGY Lymphocytes 11.7 20.0 - 11/27 LOW [place] 40.0 /2011 [facility] HEMATOLOGY MPV 10.8 7.4 - 10.4 11/27 [facility] HEMATOLOGY Platelet 161 133 - 450 11/27 Normal [facility] HEMATOLOGY MCHC 35.6 32.0 - / Normal [facility] 36.0 /2011 [facility] HEMATOLOGY RDW 12.4 11.5 - 11/27 Normal [facility] 14.5 /2011 [facility] HEMATOLOGY MCH 30.7 27.0 - 11/27 Normal [facility] 31.0 /2011 [facility] HEMATOLOGY MCV 86.1 81.0 - 11/27 Normal [facility] 99.0 /2011 [facility] HEMATOLOGY Hct 33.6 36.0 - 11/27 [facility] 48.0 /2011 [facility] HEMATOLOGY Hgb 12.0 12.0 - 11/27 Normal [facility] 16.0 /2011 [facility] HEMATOLOGY RBC 3.90 4.20 - 11/27 LOW [facility] 5.40 /2011 [facility] HEMATOLOGY WBC 6.6 3.7 - 10.4 11/27 Normal [facility] CHEMISTRY UDS Note See Note 5 11/27 NA <sup>5</sup>I [facility] *NA* nterpretive Medical (11/28/2011 14:51:00) Data: Drugs Center reported as positive have not been confirmed by a second method and should be used for medical purposes only. To order confirmation, contact laboratory. note: Below are cut-off concentration s for all urine drugs of abuse performed in the laboratory. Some drugs listed in the table may not be included in this panel. Description Cut-off concentration Amphetamine 1000 ng/mL Barbiturates 200 ng/mL Benzodiazepin es 300 ng/mL Cocaine metabolites 300 ng/mL Opiates 300 ng/mL Phencyclidine 25 ng/mL Propoxyphene 300 ng/mL Marijuana metabolites 50 ng/mL Methadone 300 ng/mL Urine alcohol 20 mg/dL CHEMISTRY U Phencyc Negative Negative 11/27 [facility] Scr *NA* /2011 Medical (11/28/2011 14:51:00) Center CHEMISTRY U Kelly Scr Negative Negative 11/27 NA [place] *NA* Medical (11/28/2011 14:51:00) Center CHEMISTRY U Amph Scr Negative Negative 11/27 NA [place] *NA* Medical (11/28/2011 14:51:00) Center CHEMISTRY U Opiate Scr Negative Negative 11/27 NA [place] *NA* Medical (11/28/2011 14:51:00) Center CHEMISTRY U Cocaine Negative Negative 11/27 NA [place] Scr *NA* Medical (11/28/2011 14:51:00) Center CHEMISTRY U Cannab Scr Negative Negative 11/27 NA [place] *NA* Medical (11/28/2011 14:51:00) Center CHEMISTRY U Benzodia Negative Negative 11/27 NA [facility] Scr *NA* Medical (11/28/2011 14:51:00) Center BEDSIDE Comment1 Notify 09/17 NA [facility] GLUCOSE RN/MD /2011 Medical TESTING Center BEDSIDE Gluc POC 328 70 - 99 09/17 HI <sup>1</sup>I [facility] GLUCOSE [facility] nterpretive Medical TESTING Data: Center Upper Reportable Limit: 200 mg/dL. CHEMISTRY U Preg Negative Negative 09/17 Normal [facility] (09/18/2011 10:30:00) Medical Center URINALYSIS UA WBC None Seen None Seen 09/17 Normal [facility] (09/18/2011 10:30:00) Medical Center URINALYSIS UA RBC None Seen 0 - 2 09/17 Normal [facility] (09/18/2011 10:30:00) Medical Center URINALYSIS UA Bacteria None Seen None Seen 09/17 Normal [facility] (09/18/2011 10:30:00) Medical Center URINALYSIS UA Amorph Few /HPF None Seen 09/17 ABN [facility] [place] *ABN* Medical (09/18/2011 10:30:00) Center URINALYSIS Micro? Performed 09/17 Normal [facility] (09/18/2011 10:30:00) Medical Center URINALYSIS UA Sq Epi Rare /LPF Few 09/17 Normal [facility] (09/18/2011 10:30:00) Medical Center URINALYSIS UA Ketones 15 mg/dL Negative 09/17 ABN [facility] *ABN* Medical (09/18/2011 10:30:00) Center URINALYSIS UA Glucose >=1000 mg/dL [facility] 09[facility] 10:30:00[facility] Center URINALYSIS UA Protein Trace Negative 09/17 [facility] (09/18/2011 10:30:00) Center URINALYSIS UA 0.2 0.1 - 1.0 09/17 Normal [facility] Urobilinogen /2011 Medical Center URINALYSIS UA Blood Negative Negative 09/17 Normal [facility] (09/18/2011 10:30:00) Medical Center URINALYSIS UA Bili Negative Negative 09/17 [facility]09/18/2011 10:30:00) Center URINALYSIS UA Leuk Est Negative Negative 09/17 Normal [facility] (09/18/2011 10:30:00) Medical Center URINALYSIS UA Nitrite Negative Negative 09/17 Normal [facility] (09/18/2011 10:30:00) Medical Center URINALYSIS UA pH 7.5 5.0 - 8.0 09/17 Normal [facility] Medical Center URINALYSIS UA Spec Grav 1.010 <=1.030 09/17 Normal [facility] Center URINALYSIS UA Turbidity Slight Cloudy Clear 09/17 Normal [facility] (09/18/2011 10:30:00) Medical Center URINALYSIS UA Color Yellow Yellow 09/17 [facility]09/[facility]/2011 10:30:00) Center CHEMISTRY Phosphorus 4.4 2.5 - 4.5 09/17 Normal Medical Center CHEMISTRY Magnesium 1.6 1.8 - 2.4 09/17 LOW [facility] Lvl /2011 Medical Center BEDSIDE Gluc POC >400 70 - 99 09/17 CRIT <sup>2</sup>I [facility] GLUCOSE [place] nterpretive Medical TESTING Data: Center Upper Reportable Limit: 200 mg/dL. CHEMISTRY pO2 [place] 24 20 - 49 09/17 Normal Medical Center CHEMISTRY HCO3 [place] 32.0 22.0 - 09/17 HI [place] 26.0 Medical Center CHEMISTRY pCO2 [place] 44 38 - 52 09/17 Normal Medical Center CHEMISTRY BE [place] 7 -2-2 - 2 09/17 HI Medical Center CHEMISTRY O2 Sat [place] 48.0 40.0 - 09/17 Normal [place] 70.0 Medical Center CHEMISTRY Temp [place] 37.0 09/17 NA Medical Center CHEMISTRY pH [place] 7.47 7.28 - 09/17 HI [place] 7.42 /2011 Medical Center CHEMISTRY Calcium Lvl 10.1 8.5 - 10.5 09/17 Normal Medical Center CHEMISTRY Chloride Lvl 92 95 - 109 09/17 LOW Medical Center CHEMISTRY CO2 30 24 - 32 09/17 Normal Medical Center CHEMISTRY Potassium 3.5 3.5 - 5.1 09/17 Normal [facility] Medical Center CHEMISTRY Sodium Lvl 133 135 - 145 09/17 LOW Medical Center CHEMISTRY Creatinine 1.3 0.5 - 1.4 09/17 Normal [facility] Medical Center CHEMISTRY Glucose Lvl 383 70 - 99 09/17 HI <sup>3</sup>I nterpretive Medical Data: Adult Center reference range values reflect the clinical guidelines of the [place] [employer]. CHEMISTRY BUN 17 7 - 22 09/17 Normal [facility] Center CHEMISTRY AGAP 14.5 10.0 - 09/17 Normal 20.0 Medical Center HEMATOLOGY MPV 12.0 7.4 - 10.4 09/17 HI Medical Center HEMATOLOGY Platelet 226 133 - 450 09/17 Normal Medical Center HEMATOLOGY MCHC 33.7 32.0 - 09/17 Normal [place] 36.0 Medical Center HEMATOLOGY MCH 28.5 27.0 - 09/17 Normal [place] 31.0 /2011 Medical Center HEMATOLOGY RDW 15.1 11.5 - 09/17 HI [place] 14.5 Medical Center HEMATOLOGY MCV 84.6 81.0 - 09/17 Normal [place] 99.0 Medical Center HEMATOLOGY Hct 36.4 36.0 - 09/17 Normal [place] 48.0 /2011 Medical Center HEMATOLOGY Hgb 12.3 12.0 - 09/17 Normal [place] 16.0 /2011 Medical Center HEMATOLOGY RBC 4.30 4.20 - 09/17 Normal [place] 5.40 /2011 Medical Center HEMATOLOGY WBC 11.7 3.7 - 10.4 09/17 HI [facility] Center HEMATOLOGY Monocytes 2.9 2.0 - 12.0 09/17 Normal [facility] Center HEMATOLOGY Eosinophils 0.2 0.0 - 4.0 09/17 Normal [facility] HEMATOLOGY Basophils 0.0 0.0 - 1.0 09/17 Normal [facility] HEMATOLOGY Eosinophils 0.0 0.0 - 0.5 09/17 Normal [place] # /2011 [facility] HEMATOLOGY Monocytes # 0.3 0.0 - 0.8 09/17 Normal [facility] HEMATOLOGY Segs 92.0 45.0 - 09/17 HI [place] 75.0 [facility] HEMATOLOGY Lymphocytes 4.9 20.0 - 09/17 LOW [place] 40.0 [facility] HEMATOLOGY Spherocyte Rare None Seen 09/17 [facility] Medical (09/18/2011 08:52:00) Center HEMATOLOGY Large Plt Slight None Seen 09/17 [facility] *ABN Medical (09/18/2011 08:52:00) Center HEMATOLOGY Microcyte 1+ None Seen 09/17 [facility] *ABN Medical (09/18/2011 08:52:00) Center HEMATOLOGY Schistocyte Rare 09/17 NA [facility] HEMATOLOGY Macrocyte 1+ None Seen 09/17 [facility] (09/18/2011 08:52:00) Center HEMATOLOGY Lymphocytes 0.6 1.0 - 5.5 09/17 LOW [facility] # [facility] HEMATOLOGY Segs-Bands # 10.8 1.5 - 8.1 09/17 HI [facility] HEMATOLOGY Basophils # 0.0 0.0 - 0.2 09/17 Normal [facility] HEMATOLOGY Anisocyte 1+ None Seen 09/17 [facility] *ABN* Medical (09/18/2011 08:52:00) Center IMMUNOLOGY [facility]-HIV 1/2 Negative Negative 09/17 [facility] *NA* Medical (09/18/2011 08:52:00) Center BEDSIDE Gluc POC 215 70 - 99 09/08 DC <sup>1</sup>I [facility] GLUCOSE [facility] nterpretive Medical TESTING Data: Center Upper Reportable Limit: 200 mg/dL. BEDSIDE Comment1 Notify 09/08 NA [facility] GLUCOSE RN/ /2011 Medical TESTING Center BEDSIDE Comment1 Notify 09/08 NA [facility] GLUCOSE RN/MD /2011 Medical TESTING Center BEDSIDE Gluc POC 91 65 - 110 09/08 Normal <sup>2</sup>I [facility] GLUCOSE [place] nterpretive Medical TESTING Data: Center Upper Reportable Limit: 200 mg/dL. BEDSIDE Comment1 Notify 09/08 NA [place] GLUCOSE RN/ /2011 Medical TESTING Center BEDSIDE Gluc POC 148 65 - 110 09/08 HI <sup>3</sup>I [facility] GLUCOSE Lifscn nterpretive Medical TESTING Data: Center Upper Reportable Limit: 200 mg/dL. CHEMISTRY Sodium Lvl 143 135 - 145 09/07 Normal [facility] CHEMISTRY Glucose Lvl 105 09/07 NA <sup>4</sup>I nterpretive Medical Data: Center Reference Ranges : 0 - 7 days : 41 - 90 mg/dL 7 days - 150 yrs : 70 - 99 mg/dL (fasting), based on the clinical recommendatio ns of the [place] [employer]. CHEMISTRY CO2 29 24 - 32 09/07 Normal [facility] CHEMISTRY Chloride Lvl 103 95 - 109 09/07 Normal [facility] CHEMISTRY BUN 10 7 - 22 09/07 Normal [facility] CHEMISTRY Potassium 3.8 3.5 - 5.1 09/07 Normal [facility] CHEMISTRY Creatinine 0.6 0.5 - 1.4 09/07 Normal [facility] CHEMISTRY Calcium Lvl 8.5 8.5 - 10.5 09/07 Normal [facility] CHEMISTRY AGAP 14.8 10.0 - 09/07 Normal [place] 20.0 /2011 Medical Center HEMATOLOGY MCH 28.9 27.0 - 09/07 Normal [place] 31.0 Medical Center HEMATOLOGY MCV 82.1 81.0 - 09/07 Normal [place] 99.0 Medical Center HEMATOLOGY Hct 25.9 36.0 - 09/07 LOW [place] 48.0 /2011 Medical Center HEMATOLOGY Platelet 233 133 - 450 09/07 Normal Medical [place] HEMATOLOGY RDW 14.5 11.5 - 09/07 Normal [place] 14.5 Medical Center HEMATOLOGY MCHC 35.2 32.0 - 03 Normal [place] 36.0 /2011 Medical [place] HEMATOLOGY Hgb 9.1 12.0 - 03 LOW [place] 16.0 /2011 Medical [place] HEMATOLOGY RBC 3.15 4.20 - 09/07 LOW [place] 5.40 /2011 [facility] HEMATOLOGY MPV 9.0 7.4 - 10.4 09/07 Normal [facility] HEMATOLOGY WBC 6.3 3.7 - 10.4 09/07 Normal [facility] HEMATOLOGY Eosinophils 0.0 0.0 - 0.5 09/07 Normal [facility] HEMATOLOGY Basophils # 0.0 0.0 - 0.2 09/07 Normal [facility] HEMATOLOGY Segs-Bands # 3.8 1.5 - 8.1 09/07 Normal [facility] HEMATOLOGY Lymphocytes 2.0 1.0 - 5.5 09/07 Normal [facility] HEMATOLOGY Basophils 0.5 0.0 - 1.0 09/07 Normal [facility] HEMATOLOGY Eosinophils 0.7 0.0 - 4.0 09/07 Normal [facility] HEMATOLOGY Monocytes 6.2 2.0 - 12.0 09/07 Normal [facility] HEMATOLOGY Segs 61.1 45.0 - 09/07 Normal [place] 75.0 [facility] HEMATOLOGY Lymphocytes 31.5 20.0 - 09/07 Normal [place] 40.0 [facility] HEMATOLOGY Monocytes # 0.4 0.0 - 0.8 09/07 Normal [facility] CHEMISTRY CO2 27 24 - 32 09/06 Normal [facility] CHEMISTRY Chloride Lvl 104 95 - 109 09/06 Normal [facility] CHEMISTRY Creatinine 0.5 0.5 - 1.4 09/06 Normal [facility] CHEMISTRY BUN 10 7 - 22 09/06 Normal [facility] CHEMISTRY Potassium 4.1 3.5 - 5.1 09/06 Normal [facility] CHEMISTRY Sodium Lvl 141 135 - 145 09/06 Normal [facility] CHEMISTRY Glucose Lvl 83 09/06 NA <sup>5</sup>I nterpretive Medical Data: Center Reference Ranges : 0 - 7 days : 41 - 90 mg/dL 7 days - 150 yrs : 70 - 99 mg/dL (fasting), based on the clinical recommendatio ns of the [place] [employer]. CHEMISTRY Calcium Lvl 8.4 8.5 - 10.5 09/06 [facility] CHEMISTRY AGAP 14.1 10.0 - 09/06 Normal [place] 20.0 /2011 [facility] HEMATOLOGY Hct 35.5 36.0 - 09/06 [facility] [place] 48.0 /2011 [facility] HEMATOLOGY WBC 4.7 3.7 - 10.4 09/06 Normal [facility] HEMATOLOGY MCV 92.6 81.0 - 09/06 [facility] [place] 99.0 /2011 [facility] HEMATOLOGY MCH 31.4 27.0 - 09/06 HI [place] 31.0 [facility] HEMATOLOGY RBC 3.84 4.20 - 09/06 [facility] [place] 5.40 /2011 [facility] HEMATOLOGY Hgb 12.1 12.0 - 09/06 Normal [facility] 16.0 [facility] HEMATOLOGY Platelet 287 133 - 450 09/06 [facility] HEMATOLOGY RDW 12.7 11.5 - 09/06 [facility] 14.5 [facility] HEMATOLOGY MCHC 33.9 32.0 - 09/06 Normal [place] 36.0 /2011 [facility] HEMATOLOGY MPV 7.2 7.4 - 10.4 09/06 [facility] HEMATOLOGY INR 0.95 0.85 - 09/06 Normal <sup>7</sup>I [facility] 1.17 nterpretive Medical Data: Center RECOMMENDED RANGES FOR PROTIME INR: 2.0-3.0 for most medical and surgical thromboemboli c states. 2.5-3.5 for artificial heart valves and recurrent embolism. INR SHOULD BE USED ONLY FOR PATIENTS ON STABLE ANTICOAGULANT THERAPY. HEMATOLOGY PT 12.7 12.0 - 09/06 Normal [facility] 14.7 [facility] HEMATOLOGY PTT 28.5 22.9 - 09/06 Normal <sup>9</sup>I [facility] 35.8 nterpretive Medical Data: Heparin Center Therapeutic Range: 57 - 92 Seconds HEMATOLOGY Eosinophils 0.1 0.0 - 0.5 09/06 Normal [place] # /2011 [facility] HEMATOLOGY Basophils # 0.0 0.0 - 0.2 09/06 [facility] /2011 Medical Center HEMATOLOGY Basophils 0.4 0.0 - 1.0 09/06 Normal [facility] HEMATOLOGY Segs-Bands # 2.1 1.5 - 8.1 09/06 Normal [facility] HEMATOLOGY Monocytes 9.0 2.0 - 12.0 09/06 Normal [facility] HEMATOLOGY Eosinophils 2.4 0.0 - 4.0 09/06 Normal [facility] HEMATOLOGY Monocytes # 0.4 0.0 - 0.8 09/06 Normal [facility] HEMATOLOGY Lymphocytes 2.0 1.0 - 5.5 09/06 Normal [facility] HEMATOLOGY Lymphocytes 42.8 20.0 - 03 HI [place] 40.0 /2011 Medical Center HEMATOLOGY Segs 45.4 45.0 - 09/06 Normal [facility] 75.0 [facility] CHEMISTRY Chloride Lvl 105 95 - 109 09/06 Normal [facility] CHEMISTRY Potassium 4.1 3.5 - 5.1 09/[address] [facility] CHEMISTRY Sodium Lvl 143 135 - 145 09/06 Normal [facility] CHEMISTRY CO2 29 24 - 32 09/06 Normal [facility] CHEMISTRY Calcium Lvl 8.7 8.5 - 10.5 09/06 Normal [facility] CHEMISTRY BUN 6 7 - 22 09/06 LOW [facility] CHEMISTRY Creatinine 0.6 0.5 - 1.4 09/[address] [facility] CHEMISTRY Glucose Lvl 118 09/06 NA <sup>6</sup>I nterpretive Medical Data: Center Reference Ranges : 0 - 7 days : 41 - 90 mg/dL 7 days - 150 yrs : 70 - 99 mg/dL (fasting), based on the clinical recommendatio ns of the [place] [employer]. CHEMISTRY AGAP 13.1 10.0 - 09/06 Normal [place] 20.0 [facility] HEMATOLOGY Basophils # 0.0 0.0 - 0.2 09/06 Normal [facility] HEMATOLOGY Monocytes # 0.3 0.0 - 0.8 09/06 Normal [facility] HEMATOLOGY Eosinophils 0.1 0.0 - 0.5 09/06 Normal [facility] HEMATOLOGY Segs-Bands # 2.8 1.5 - 8.1 09/06 Normal [facility] HEMATOLOGY Lymphocytes 1.7 1.0 - 5.5 09/06 Normal [place] # /2011 Medical Center HEMATOLOGY Basophils 0.6 0.0 - 1.0 09/06 Normal [facility] HEMATOLOGY Monocytes 6.9 2.0 - 12.0 09/06 Normal /2011 [facility] HEMATOLOGY Eosinophils 2.0 0.0 - 4.0 09/06 Normal [facility] HEMATOLOGY Segs 55.8 45.0 - 09/06 Normal [place] 75.0 /2011 [facility] HEMATOLOGY Lymphocytes 34.7 20.0 - 09/06 Normal [place] 40.0 /2011 [facility] HEMATOLOGY PTT 32.2 22.9 - 09/06 Normal <sup>10</sup> [place] 35.8 /2011 Interpretive Medical Data: Heparin Center Therapeutic Range: 57 - 92 Seconds HEMATOLOGY PT 13.3 12.0 - 09/06 Normal [place] 14.7 [facility] HEMATOLOGY INR 1.01 0.85 - 09/06 Normal <sup>8</sup>I [facility] 1.17 nterpretive Medical Data: Center RECOMMENDED RANGES FOR PROTIME INR: 2.0-3.0 for most medical and surgical thromboemboli c states. 2.5-3.5 for artificial heart valves and recurrent embolism. INR SHOULD BE USED ONLY FOR PATIENTS ON STABLE ANTICOAGULANT THERAPY. HEMATOLOGY Hct 27.5 36.0 - 09/06 LOW [place] 48.0 /2011 [facility] HEMATOLOGY RBC 3.34 4.20 - 09/06 LOW [place] 5.40 /2011 [facility] HEMATOLOGY Hgb 9.7 12.0 - 09/06 LOW [place] 16.0 [facility] HEMATOLOGY WBC 5.0 3.7 - 10.4 09/06 Normal [facility] HEMATOLOGY MPV 9.2 7.4 - 10.4 09/06 Normal [facility] HEMATOLOGY Platelet 240 133 - 450 09/06 Normal [facility] HEMATOLOGY RDW 14.3 11.5 - 09/06 Normal [place] 14.5 [facility] HEMATOLOGY MCHC 35.2 32.0 - 09/06 Normal [place] 36.0 /2011 [facility] HEMATOLOGY MCH 28.9 27.0 - 09/06 Normal [place] 31.0 /2011 [facility] HEMATOLOGY MCV 82.1 81.0 - 09/06 Normal [facility] 99.0 /2011 Medical Center CHEMISTRY Magnesium 2.1 1.8 - 2.4 09/02 Normal [facility] Lvl Medical Center Microbiolo Culture: 09/01 [facility] gy Aspirate/Bod Medical y Center Fluid/Tissue Microbiolo Culture: 09/01 [facility] gy Anaerobic Medical Center CHEMISTRY Temp [place] 37.0 08/31 NA Medical Center CHEMISTRY O2 Sat [place] 27.0 40.0 - 08/31 LOW [facility] 70.0 Medical Center CHEMISTRY pCO2 [place] 47 38 - 52 08/31 Normal Medical Center CHEMISTRY pH [place] 7.37 7.28 - 08/31 Normal [facility] 7.42 /2011 Medical Center CHEMISTRY BE [place] 1 -2-2 - 2 08/31 Normal Medical Center CHEMISTRY HCO3 [place] 27.2 22.0 - 08/31 HI [facility] 26.0 Medical Center CHEMISTRY pO2 [place] 19 20 - 49 08/31 LOW Medical Center Microbiolo Culture: 08/31 [facility] Blood /2011 Medical Center Microbiolo Culture: 08/31 [facility] gy Wound/Absces /2011 Medical s w/Gram Center Stain CHEMISTRY Lactic Acid 1.0 0.5 - 2.2 08/[address] [facility] CHEMISTRY U Preg Negative Negative 08/31 Normal [facility] (09/01/2011 07:20:00) Medical Center URINALYSIS UA Sq Epi Occasional /LPF Few 08/31 Normal [facility] (09/01/2011 07:20:00) Medical Center URINALYSIS UA Leuk Est Negative Negative 08/31 Normal [facility] (09/01/2011 07:20:00) Medical Center URINALYSIS UA Nitrite Negative Negative 08/31 Normal [facility] (09/01/2011 07:20:00) Medical Center URINALYSIS UA 0.2 0.1 - 1.0 08/31 Normal [facility] Urobilinogen /2011 Medical Center URINALYSIS UA Blood Negative Negative 08/31 Normal [facility] (09/01/2011 07:20:00) Medical Center URINALYSIS UA Ketones >=80 mg/dL Negative 08/31 ABN [facility] *ABN* /2011 Medical (09/01/2011 07:20:00) Center URINALYSIS UA Protein Negative Negative 08/31 Normal [facility] (09/01/2011 07:20:00) Medical Center URINALYSIS UA pH 6.0 5.0 - 8.0 08/31 Normal Medical Center URINALYSIS UA Bili Negative Negative 08/31 Normal [facility] (09/01/2011 07:20:00) Medical Center URINALYSIS UA Glucose >=1000 mg/dL Negative 08/31 [facility] (09/01/2011 07:20:00) Center URINALYSIS UA Spec Grav 1.035 <=1.030 08/31 HI [facility] Medical Center URINALYSIS UA Turbidity Clear Clear 08/31 Normal [facility] (09/01/2011 07:20:00) Medical Center URINALYSIS U[facility] Color Yellow [facility] 08[facility] 07:20:00[facility] Center CHEMISTRY Lactic Acid 2.8 0.5 - 2.2 08/31 [facility] CHEMISTRY Magnesium 1.5 1.8 - 2.4 08/31 LOW [facility] Medical Center HEMATOLOGY Polychrom Slight None Seen 08/31 Normal [facility] (09/01/2011 02:47:00) Medical Center HEMATOLOGY Anisocyte 1+ None Seen 08/31 [facility] (09/01/2011 02:47:00) Center HEMATOLOGY Large Plt Slight None Seen 08/31 [facility] Medical (09/01/2011 02:47:00) Center HEMATOLOGY Tear Cell Occasional 08/31 [facility] HEMATOLOGY Elliptocyte Slight None Seen 08/31 [facility] (09/01/2011 02:47:00) Center BEDSIDE Comment1 Notify 08/22 NA [facility] GLUCOSE RN/MD /2011 Medical TESTING Center BEDSIDE Gluc POC 134 65 - 110 08/22 HI <sup>1</sup>I [facility] GLUCOSE [facility] nterpretive Medical TESTING Data: Center Upper Reportable Limit: 200 mg/dL. BEDSIDE Gluc POC 182 65 - 110 08/22 HI <sup>2</sup>I [facility] GLUCOSE [facility] nterpretive Medical TESTING Data: Center Upper Reportable Limit: 200 mg/dL. BEDSIDE Comment1 Notify 08/22 NA [facility] GLUCOSE RN/MD Medical TESTING Center CHEMISTRY Phosphorus 3.0 2.5 - 4.5 03/ Normal [facility] CHEMISTRY Magnesium 1.8 1.8 - 2.4 03/ Normal [facility] CHEMISTRY Chloride Lvl 107 95 - 109 / Normal [facility] CHEMISTRY Potassium 3.0 3.5 - 5.1 08/22 CRIT <sup>4</sup>R [facility] esult Medical Comment: Center Critical Result(s) called to annie genao at 08/23/2011 5:18 by tac. Read back OK. CHEMISTRY Sodium Lvl 141 135 - 145 08/22 Normal [facility] CHEMISTRY Creatinine 0.6 0.5 - 1.4 08/[address] [facility] CHEMISTRY CO2 23 24 - 32 03 LOW [facility] CHEMISTRY Calcium Lvl 7.3 8.5 - 10.5 08/22 LOW [facility] CHEMISTRY Glucose Lvl 136 03/ NA <sup>5</sup>I nterpretive Medical Data: Center Reference Ranges : 0 - 7 days : 41 - 90 mg/dL 7 days - 150 yrs : 70 - 99 mg/dL (fasting), based on the clinical recommendatio ns of the [place] [employer]. CHEMISTRY AGAP 14.0 10.0 - 03 Normal [facility] 20.0 /2011 [facility] CHEMISTRY BUN 5 7 - 22 03/ LOW [facility] HEMATOLOGY Segs 69.6 45.0 - 03/04 Normal [facility] 75.0 /2011 [facility] HEMATOLOGY Lymphocytes 21.5 20.0 - 03/04 Normal [place] 40.0 /2011 [facility] HEMATOLOGY Monocytes 7.6 2.0 - 12.0 03/ Normal [facility] HEMATOLOGY Eosinophils 1.0 0.0 - 4.0 03/ Normal [facility] HEMATOLOGY Basophils 0.3 0.0 - 1.0 03/ Normal [facility] HEMATOLOGY Segs-Bands # 4.8 1.5 - 8.1 03/ Normal [facility] HEMATOLOGY Eosinophils 0.1 0.0 - 0.5 03/ Normal [facility] # /2012 [facility] HEMATOLOGY Lymphocytes 1.5 1.0 - 5.5 03/ Normal [place] # /2011 Medical [place] HEMATOLOGY Monocytes # 0.5 0.0 - 0.8 / Normal /2011 [facility] HEMATOLOGY Basophils # 0.0 0.0 - 0.2 / Normal [facility] HEMATOLOGY MPV 11.0 7.4 - 10.4 / HI [facility] HEMATOLOGY Platelet 161 133 - 450 03/ Normal [facility] HEMATOLOGY MCH 29.6 27.0 - 03/ Normal [facility] 31.0 /2011 [facility] HEMATOLOGY MCHC 35.4 32.0 - 03/ Normal [place] 36.0 /2011 [facility] HEMATOLOGY RDW 14.1 11.5 - 03 Normal [facility] 14.5 /2011 [facility] HEMATOLOGY WBC 6.8 3.7 - 10.4 / Normal [facility] HEMATOLOGY MCV 83.5 81.0 - 08/22 Normal [facility] 99.0 [facility] HEMATOLOGY RBC 4.44 4.20 - 03 Normal [place] 5.40 /2011 [facility] HEMATOLOGY Hgb 13.1 12.0 - 03 Normal [facility] 16.0 [facility] HEMATOLOGY Hct 37.1 36.0 - 03/ Normal [facility] 48.0 /2011 [facility] BEDSIDE Comment1 Notify 08/22 NA [facility] GLUCOSE RN/MD Medical TESTING Center BEDSIDE Gluc POC 332 65 - 110 08/22 HI <sup>3</sup>I [facility] GLUCOSE [facility] nterpretive Medical TESTING Data: Center Upper Reportable Limit: 200 mg/dL. CHEMISTRY Phosphorus 2.5 2.5 - 4.5 08/21 Normal [facility] CHEMISTRY Glucose Lvl 201 08/21 NA <sup>6</sup>I nterpretive Medical Data: Center Reference Ranges : 0 - 7 days : 41 - 90 mg/dL 7 days - 150 yrs : 70 - 99 mg/dL (fasting), based on the clinical recommendatio ns of the [place] [employer]. CHEMISTRY BUN 7 7 - 22 08/21 Normal [facility] CHEMISTRY CO2 19 24 - 32 08/21 LOW [facility] CHEMISTRY Creatinine 0.3 0.5 - 1.4 08/21 LOW [place] Lvl /2011 Medical Center CHEMISTRY Sodium Lvl 137 135 - 145 03/ Normal Medical Center CHEMISTRY Chloride Lvl 103 95 - 109 03/ Normal [facility] CHEMISTRY Potassium 3.6 3.5 - 5.1 03/ Normal [place] Lvl Medical Center CHEMISTRY Calcium Lvl 7.9 8.5 - 10.5 03/ LOW [facility] CHEMISTRY AGAP 18.6 10.0 - 03/ Normal [place] 20.0 /2011 Medical Center CHEMISTRY Magnesium 1.6 1.8 - 2.4 03/ LOW [place] Lvl /2011 [facility] HEMATOLOGY Basophils # 0.0 0.0 - 0.2 03/ Normal [facility] HEMATOLOGY Eosinophils 0.4 0.0 - 4.0 03/ Normal /2011 Medical Center HEMATOLOGY Basophils 0.5 0.0 - 1.0 03/ Normal [facility] HEMATOLOGY Segs-Bands # 5.9 1.5 - 8.1 03/ Normal [facility] HEMATOLOGY Lymphocytes 1.2 1.0 - 5.5 03/ Normal [place] /2011 Medical Center HEMATOLOGY Monocytes # 0.5 0.0 - 0.8 03/ Normal [facility] HEMATOLOGY Eosinophils 0.0 0.0 - 0.5 03/ Normal [place] # /2011 Medical Center HEMATOLOGY Segs 76.9 45.0 - 03/ HI [place] 75.0 /2011 Medical Center HEMATOLOGY Lymphocytes 15.9 20.0 - 03/ LOW [place] 40.0 /2011 Medical Center HEMATOLOGY Monocytes 6.3 2.0 - 12.0 03/ Normal Medical Center HEMATOLOGY MCV 82.8 81.0 - 03/ Normal [place] 99.0 /2011 Medical Center HEMATOLOGY Hct 39.7 36.0 - 03/ Normal [place] 48.0 /2011 Medical Center HEMATOLOGY MCH 29.1 27.0 - 03/03 Normal [place] 31.0 /2011 Medical Center HEMATOLOGY Hgb 14.0 12.0 - 03/ Normal [place] 16.0 Medical Center HEMATOLOGY MCHC 35.2 32.0 - 03/ Normal [place] 36.0 Medical Center HEMATOLOGY RDW 13.9 11.5 - 03/ Normal [facility] [place] 14.5 Medical [place] HEMATOLOGY Platelet 160 133 - 450 03/ Normal Medical [place] HEMATOLOGY MPV 11.9 7.4 - 10.4 03 [facility] Medical [place] HEMATOLOGY WBC 7.7 3.7 - 10.4 03 Normal [facility] HEMATOLOGY RBC 4.80 4.20 - 08/21 Normal [facility] 5.40 Medical Center CHEMISTRY Phosphorus 2.6 2.5 - 4.5 08/20 Normal [facility] Center CHEMISTRY Magnesium 1.8 1.8 - 2.4 08/20 Normal [facility] CHEMISTRY Potassium 3.7 3.5 - 5.1 08/[address] [facility] Medical Center CHEMISTRY Sodium Lvl 137 135 - 145 08/20 Normal [facility] CHEMISTRY Creatinine 0.6 0.5 - 1.4 08/20 Normal [facility] CHEMISTRY BUN 16 7 - 22 08/20 Normal Medical Center CHEMISTRY Glucose Lvl 200 08/20 NA <sup>7</sup>I nterpretive Medical Data: Center Reference Ranges : 0 - 7 days : 41 - 90 mg/dL 7 days - 150 yrs : 70 - 99 mg/dL (fasting), based on the clinical recommendatio ns of the [place] [employer]. CHEMISTRY Calcium Lvl 8.3 8.5 - 10.5 08/20 LOW [facility] CHEMISTRY AGAP 19.7 10.0 - 03 Normal [facility] 20.0 [facility] Center CHEMISTRY Chloride Lvl 99 95 - 109 08/20 Normal [facility] Center CHEMISTRY CO2 22 24 - 32 03 LOW Medical [place] HEMATOLOGY Platelet 172 133 - 450 03 Normal Medical [place] HEMATOLOGY MPV 12.0 7.4 - 10.4 03 [facility] Center HEMATOLOGY WBC 7.3 3.7 - 10.4 08/20 Normal Medical [place] HEMATOLOGY RDW 14.6 11.5 - 08/20 [facility] 14.5 Medical Center HEMATOLOGY MCHC 35.0 32.0 - 03 Normal [place] 36.0 /2011 Medical Center HEMATOLOGY RBC 4.54 4.20 - 03 Normal [facility] 5.40 /2011 [facility] HEMATOLOGY Hct 37.6 36.0 - 03/ Normal [facility] 48.0 /2011 Medical [place] HEMATOLOGY MCV 82.9 81.0 - 03/ Normal [facility] 99.0 /2011 [facility] HEMATOLOGY MCH 29.0 27.0 - 03/ Normal [facility] 31.0 /2011 [facility] HEMATOLOGY Hgb 13.2 12.0 - 03/ Normal <sup>8</sup>R [facility] 16.0 /2011 esult Medical Comment: hp Center rechecked, no clot seen HEMATOLOGY Elliptocyte Slight None Seen 08/20 ABN [facility] *ABN* /2011 [facility] (08/21/2011 04:28:00) [place] HEMATOLOGY Polychrom Slight None Seen 08/20 Normal [facility] (08/21/2011 04:28:00) [facility] HEMATOLOGY Basophils # 0.0 0.0 - 0.2 08/20 Normal [facility] HEMATOLOGY Hypochrom Slight None Seen 08/20 Normal [facility] (08/21/2011 04:28:00) [facility] HEMATOLOGY Monocytes # 0.6 0.0 - 0.8 03/ Normal /2011 [facility] HEMATOLOGY Eosinophils 0.0 0.0 - 0.5 03/ Normal [facility] # [facility] HEMATOLOGY Segs-Bands # 5.3 1.5 - 8.1 03 Normal [facility] HEMATOLOGY Lymphocytes 1.3 1.0 - 5.5 / Normal [facility] HEMATOLOGY Basophils 0.5 0.0 - 1.0 03/ Normal [facility] HEMATOLOGY Monocytes 8.5 2.0 - 12.0 03/ Normal [facility] HEMATOLOGY Eosinophils 0.3 0.0 - 4.0 03/ Normal [facility] HEMATOLOGY Lymphocytes 17.3 20.0 - 03/ LOW [facility] 40.0 [facility] HEMATOLOGY Segs 73.4 45.0 - 03 Normal [facility] 75.0 [facility] BEDSIDE Comment2 Verify 08/19 NA [facility] GLUCOSE w/Lab /2011 Medical TESTING Center CHEMISTRY S Preg Negative Negative Normal [facility] (08/19/2011 15:58:00) /2011 Medical Center CHEMISTRY Lipase Lvl 169 73 - 393 Normal [facility] CHEMISTRY ALT 54 0 - 65 Normal [facility] CHEMISTRY Alk Phos 110 39 - 136 Normal [facility] CHEMISTRY Bili Direct 0.1 0.0 - 0.3 Normal Medical Center CHEMISTRY Bili Total 0.9 0.2 - 1.3 Normal Medical Center CHEMISTRY Albumin Lvl 4.4 3.5 - 5.0 Normal Medical Center CHEMISTRY Total 8.8 6.4 - 8.4 HI [facility] Protein Medical Center CHEMISTRY Bili 0.8 0.0 - 1.0 Normal [facility] Indirect Medical Center CHEMISTRY AST 36 0 - 37 Normal Medical Center CHEMISTRY Globulin 4.4 2.0 - 4.0 HI Medical Center CHEMISTRY A/G Ratio 1.0 0.7 - 1.6 Normal Medical Center URINALYSIS UA Bacteria Occasional /HPF None Seen Normal [facility] (08/19/2011 15:58:00) /2011 Medical Center URINALYSIS UA RBC 3-5 /HPF 0 - 2 ABN [facility] *ABN* /2011 Medical (08/19/2011 15:58:00) Center URINALYSIS UA WBC 3 0 - 5 NA [facility] Medical Center URINALYSIS UA Mucus Few /LPF None Seen Normal [facility] (08/19/2011 15:58:00) Medical Center URINALYSIS UA Amorph Occasional /HPF None Seen [facility] *ABN* /2011 Medical (08/19/2011 15:58:00) Center URINALYSIS UA 0.2 0.1 - 1.0 Normal [facility] Urobilinogen /2011 Medical Center URINALYSIS UA Sq Epi Rare /LPF Few Normal [facility] (08/19/2011 15:58:00) Medical Center URINALYSIS Micro? Performed Normal [facility] (08/19/2011 15:58:00) Medical Center URINALYSIS UA Leuk Est Negative Negative Normal [facility] (08/19/2011 15:58:00) /2011 Medical Center URINALYSIS UA Nitrite Negative Negative Normal [facility] (08/19/2011 15:58:00) Medical Center URINALYSIS UA pH 5.5 5.0 - 8.0 Normal Medical Center URINALYSIS UA Blood Trace Negative ABN [facility] *ABN* Medical (08/19/2011 15:58:00) Center URINALYSIS UA Bili Negative Negative Normal [facility] (08/19/2011 15:58:00) Medical Center URINALYSIS UA Ketones 80 mg/dL Negative ABN [facility] *ABN* Medical (08/19/2011 15:58:00) Center URINALYSIS UA Glucose >=1000 mg/dL Negative ABN [facility] *ABN* Medical (08/19/2011 15:58:00) Center URINALYSIS UA Protein Negative Negative Normal [facility] (08/19/2011 15:58:00) Medical Center URINALYSIS UA Turbidity Slight Cloudy Clear Normal [facility] (08/19/2011 15:58:00) Medical Center URINALYSIS UA Spec Grav 1.025 <=1.030 NA Medical Center URINALYSIS UA Color Yellow Yellow Normal [facility] (08/19/2011 15:58:00) Medical Center CHEMISTRY AST 23 0 - 37 Normal [facility] CHEMISTRY Bili Total 1.0 0.2 - 1.3 Normal [facility] CHEMISTRY Alk Phos 115 39 - 136 Normal [facility] Center CHEMISTRY ALT 56 0 - 65 Normal Medical Center CHEMISTRY Total 9.0 6.4 - 8.4 [facility] CHEMISTRY Albumin Lvl 4.8 3.5 - 5.0 Normal Medical Center CHEMISTRY Globulin 4.2 2.0 - 4.0 [facility] CHEMISTRY A/G Ratio 1.1 0.7 - 1.6 Normal [facility] Center CHEMISTRY B/C Ratio 30 6 - 25 [facility] HEMATOLOGY RBC Morph Normal Normal [facility] (08/19/2011 15:13:00) [facility] HEMATOLOGY Large Plt Slight None Seen ABN [facility] *ABN* /2011 Medical (08/19/2011 15:13:00) [place] HEMATOLOGY Atypical 0.0 <=0.0 Normal [facility] Lymphs [facility] HEMATOLOGY Bands 0.0 0.0 - 11.0 Normal [facility] CHEMISTRY O2 Sat [place] 74.0 40.0 - HI [place] 70.0 [facility] CHEMISTRY Temp [place] 37.0 NA [facility] CHEMISTRY pO2 [place] 42 20 - 49 Normal [facility] CHEMISTRY HCO3 [place] 17.3 22.0 - LOW [place] 26.0 [facility] CHEMISTRY pH [place] 7.34 7.28 - Normal [facility] 7.42 [facility] CHEMISTRY pCO2 [place] 32 38 - 52 LOW [facility] CHEMISTRY BE [place] -7 -2-2 - 2 LOW [facility] IMMUNOLOGY CDC-HIV 1/2 Negative Negative NA [facility] Ab *NA* /2011 Medical (08/19/2011 14:34:00) Center Pathology Reports No Data Provided for This Section Diagnostic Reports Report Value Date Source Abdomen RUQ US EXAM: US ABDOMEN LIMITED 07/26/2016 [facility] EXAM: Abdomen RUQ US Center DATE: 07/26/2016 7:29 AM [facility] INDICATION: Abdominal pain, acute ADDITIONAL INFORMATION: Significantly [...] development of moderate hepatosplenomegaly with no focal lesions , coarsened hepatic echotexture or portal vein dilatation. 2. Cholelithiasis with gallbladder wall thickening and pericholecystic fluid may be secondary to underlying hepatocellular disease versus cholecystitis. 3. Small gallbladder wall polyp versus sludge. Chest 1view DX EXAM: XR CHEST 1 VIEW 07/23/2016 [facility] DATE: 07/23/2016 9:47 PM [email or web address] Center INDICATION: Chest pain COMPARISON: X-ray chest 1 view performed June 10, 2016 TECHNIQUE: AP chest FINDINGS: No pulmonary or pleural-based abnormality is identified. Pulmonary vascularity is normal. The heart size is stable. No acute bony abnormality is identified. IMPRESSION: 1. No acute radiographic abnormality of the chest. 2. Stable mild cardiomegaly. Retroperitoneal Complete EXAM: US RENAL 06/11/2016 [facility] US DATE: 06/11/2016 6:53 AM [facility] [[email or web address] Center INDICATION: Abdominal distention/proteinuria CT of the abdomen [...] abnormalities seen in the kidneys. No hydronephrosis Chest 1view DX EXAM: XR CHEST 1 VIEW 06/10/2016 [facility] DATE: 06/10/2016 1108 hours Center INDICATION: Dyspnea COMPARISON: None available TECHNIQUE: AP [...] cardiomegaly or could be secondary to technique. Abdomen/Pelvis w contrast CT ABDOMEN AND PELVIS WITH CONTRAST: 04/15/[address] [facility] [address] CLINICAL HISTORY: Abdominal pain, acute TECHNIQUE AND FINDINGS: Multiple contiguous transaxial postcontrast [...] or focal osseous lesion is appreciated. SL:17 Consultation Notes No Data Provided for This Section Discharge Summaries No Data Provided for This Section History and Physicals No Data Provided for This Section Vital Signs Vital Sign Value Date Comments Source Temperature Oral (F) 98.1 F 10/07/[address] [facility] Heart Rate 72 10/07/[address] [facility] Respitory Rate 18 10/07/[address] [facility] Systolic (mm Hg) 171 10/07/[address] [facility] Diastolic (mm Hg) 81 10/07/[address] [facility] Height 63 10/07/[address] [facility] Weight 168 10/07/[address] [facility] Systolic (mm Hg) 131 07/30/2016 [facility] Center Diastolic (mm Hg) 86 07/30/2016 [facility] Respitory Rate 20 07/30/2016 [facility] Heart Rate 65 07/30/2016 [facility] Temperature Oral (F) 97.4 F 07/30/2016 [facility] Systolic (mm Hg) 169 07/30/2016 [facility] Center Diastolic (mm Hg) 99 07/30/2016 [facility] Heart Rate 66 07/30/2016 [facility] Temperature Oral (F) 97.2 F 07/30/2016 [facility] Respitory Rate 18 07/30/2016 [facility] Heart Rate 67 07/30/2016 [facility] Temperature Oral (F) 97.0 F 07/30/2016 [facility] Respitory Rate 16 07/30/2016 [facility] Systolic (mm Hg) 122 07/30/2016 [facility] Diastolic (mm Hg) 80 07/30/2016 [facility] Weight 92.273 07/24/2016 [facility] BMI Calculated 36.04 07/24/2016 [facility] Height 160.02 cm 07/24/2016 [facility] Respitory Rate 20 06/15/2016 [facility] Systolic (mm Hg) 169 06/15/2016 [facility] Diastolic (mm Hg) 90 06/15/2016 [facility] Respitory Rate 16 06/15/2016 [facility] Systolic (mm Hg) 151 06/15/2016 [facility] Center Diastolic (mm Hg) 73 06/15/2016 [facility] Respitory Rate 22 06/15/2016 [facility] Systolic (mm Hg) 176 06/15/2016 [facility] Diastolic (mm Hg) 95 06/15/2016 [facility] Temperature Oral (F) 97.1 F 06/14/2016 [facility] Temperature Oral (F) 97.1 F 06/14/2016 [facility] Temperature Oral (F) 96.8 F 06/12/2016 [facility] Weight 103.182 06/11/2016 [facility] Height 160.02 cm 06/11/2016 [facility] BMI Calculated 40.3 06/11/2016 [facility] Heart Rate 82 06/11/2016 [facility] Heart Rate 81 06/11/2016 [facility] Heart Rate 82 06/10/2016 [facility] Weight 86.364 06/10/2016 [facility] BMI Calculated 33.73 06/10/2016 [facility] Height 160.02 cm 06/10/2016 [facility] Temperature Oral (F) 98.0 F 06/26/2014 [facility] Center Systolic (mm Hg) 111 06/26/2014 [facility] Heart Rate 104 06/26/2014 [facility] Diastolic (mm Hg) 70 06/26/2014 [facility] Respitory Rate 18 06/26/2014 [facility] Systolic (mm Hg) 109 06/26/2014 [facility] Diastolic (mm Hg) 66 06/26/2014 [facility] Respitory Rate 18 06/26/2014 [facility] Temperature Oral (F) 98.0 F 06/26/2014 [facility] Temperature Oral (F) 98.2 F 06/26/2014 [facility] Respitory Rate 21 06/26/2014 [facility] Systolic (mm Hg) 106 06/26/2014 [facility] Diastolic (mm Hg) 65 06/26/2014 [facility] Heart Rate 118 06/26/2014 [facility] Heart Rate 113 06/26/2014 [facility] Height 154.94 cm 06/26/2014 [facility] Weight 75 06/26/2014 [facility] BMI Calculated 31.24 06/26/2014 [facility] Respitory Rate 18 04/15/2013 [facility] Diastolic (mm Hg) 89 04/15/2013 [facility] 81 04/15/2013 [facility] Systolic (mm Hg) 149 04/15/2013 [facility] Temperature Oral (F) 98.7 F 04/15/2013 [facility] Respitory Rate 18 04/15/2013 [facility] Diastolic (mm Hg) 87 04/15/2013 [facility] Systolic (mm Hg) 145 04/15/2013 [facility] Temperature Oral (F) 98.2 F 04/15/2013 [facility] Heart Rate 88 04/15/2013 [facility] Height 160.02 cm 04/15/2013 [facility] Weight 63.636 04/15/2013 [facility] Temperature Oral (F) 98.6 F 04/15/2013 [facility] Respitory Rate 18 04/15/2013 [facility] Heart Rate 85 04/15/2013 [facility] Diastolic (mm Hg) 107 04/15/2013 [facility] Systolic (mm Hg) 172 04/15/2013 [facility] Weight 58.636 03/14/2012 [facility] Systolic (mm Hg) 138 12/01/2011 [facility] Respitory Rate 18 12/01/2011 [facility] Heart Rate 90 12/01/2011 [facility] Diastolic (mm Hg) 80 12/01/2011 [facility] Temperature Oral (F) 99.6 F 12/01/2011 [facility] Diastolic (mm Hg) 106 11/30/2011 [facility] Heart Rate 96 11/30/2011 [facility] Respitory Rate 18 11/30/2011 [facility] Systolic (mm Hg) 187 11/30/2011 [facility] Temperature Oral (F) 99.8 F 11/30/2011 [facility] Respitory Rate 20 11/30/2011 [facility] Systolic (mm Hg) 178 11/30/2011 [facility] Diastolic (mm Hg) 104 11/30/2011 [facility] Heart Rate 102 11/30/2011 [facility] Temperature Oral (F) 99.8 F 11/30/2011 [facility] Weight 56.818 11/29/2011 [facility] Height 157.48 cm 11/29/2011 [facility] Weight 57.273 11/28/2011 [facility] Weight 66.364 09/18/2011 [facility] Height 154.94 cm 09/18/2011 [facility] Heart Rate 75 09/09/2011 [facility] Systolic (mm Hg) 115 09/09/2011 [facility] Diastolic (mm Hg) 69 09/09/2011 [facility] Respitory Rate 18 09/09/2011 [facility] Temperature Oral (F) 97.5 F 09/09/2011 [facility] Diastolic (mm Hg) 68 09/09/2011 [facility] Heart Rate 66 09/09/2011 [facility] Temperature Oral (F) 98.6 F 09/09/2011 [facility] Respitory Rate 20 09/09/2011 [facility] Systolic (mm Hg) 118 09/09/2011 [facility] Respitory Rate 20 09/09/2011 [facility] Diastolic (mm Hg) 71 09/09/2011 [facility] Systolic (mm Hg) 123 09/09/2011 [facility] Heart Rate 67 09/09/2011 [facility] Temperature Oral (F) 98.7 F 09/09/2011 [facility] Weight 68.182 09/01/2011 [facility] Height 154.94 cm 09/01/2011 [facility] Height 154.94 cm 09/01/2011 [facility] Weight 68.182 09/01/2011 [facility] Respitory Rate 20 08/23/2011 [facility] Heart Rate 93 08/23/2011 [facility] Systolic (mm Hg) 136 08/23/2011 [facility] Diastolic (mm Hg) 82 08/23/2011 [facility] Temperature Oral (F) 97.7 F 08/23/2011 [facility] Heart Rate 101 08/23/2011 [facility] Temperature Oral (F) 98.2 F 08/23/2011 [facility] Diastolic (mm Hg) 105 08/23/2011 [facility] Systolic (mm Hg) 172 08/23/2011 [facility] Respitory Rate 20 08/23/2011 [facility] Systolic (mm Hg) 158 08/23/2011 [facility] Diastolic (mm Hg) 98 08/23/2011 [facility] Temperature Oral (F) 98.3 F 08/23/2011 [facility] Heart Rate 95 08/23/2011 [facility] Respitory Rate 20 08/22/2011 [facility] Height 154.94 cm 08/20/2011 [facility] Weight 67.273 08/20/2011 [facility] Height 154.94 cm 08/19/2011 [facility] Weight 67.273 08/19/2011 [facility] Encounters Location Location Encounter Encounter Reason Attending ADM DC Status Source Details Type Number For Provider Date Date Visit [facility] Inpatient [id number] DKA FLORENCE 08/22 Active Medical 0 AHMED [facility] Inpatient [id number] ELBOW FLORENCE 08/31 09/08 Active Medical 1 ABSCESS/ OMIDVAR /2011 [facility] CEMIA [facility] Emergency [id number] CASA 09/17 09/17 Discharg [facility] 2 GAVINOLEWICZ /2011 ed [facility] [place] OU [id number] N/V OSMAR 11/27 11/29 Active [facility] 3 INABILIT GUNNAR /2011 [facility] Y TO [facility] PO MH Emergency [id number] VIMAL HERNANDEZ 03/14 03/14 Discharg [facility] 4 /2011 ed [facility] Emergency [id number] ABD PAIN OMAIRA 04/14 04/15 Active [facility] 7 MARRY /2012 [facility] EC [id number] Atul 06/26 06/26 [facility] Emergency 8 Ostermayer /2014 [facility] Inpatient [id number] Joe 06/10 06/15 MH [facility] 9 Franck /2015 [facility] Inpatient [id number] Danae Cha 07/24 07/30 MH [facility] 0 /2016 [facility] [id number] 07/17 07/[address] [facility] [id number] 08/07 08/[address] [facility] [id number] 08[facility] [facility] [id number] 08[facility] [facility] [id number] 09/01 09/[address] [facility] [id number] 09/09 09/[address] [facility] [id number] 10/04 10/[address] [facility] Reg[facility] [id number] 10/[address] [facility] [id number] 10/07 10/[address] [facility] [place] Preadmit [id number] NAUSEA, CASA Active [facility] [address] [facility] Outpatient [id number] GASTROPE NON Cancel Medical 6 [facility] Out[facility] [id number] GASTROPE NON Cancel [facility] 5 [facility] Procedures Procedure Code Date Perfomer Comments Source [id number] 10/04/[address] [facility] [place] Count [id number] 10/04/[address] [facility] Chest Single View [id number] 10/04/[address] [facility] Humerus Left [id number] 10/04/[address] [facility] Chest Pa And Lat (2 [id number] 09/02/[address] [facility] - Views) [place] Hip Left 2 View [id number] 09/01/[address] [facility] TRANSFUSE NONAUT [id number] 09/01/[address] [facility] [address] Мар[facility] - RED BLOOD CELLS IN [place] PERIPH VEIN, PERC BLOOD TRANSFUSION [id number] 09/01/[address] [facility] SERVICE [place] Anaerobic Blood [id number] 08/07/[address] [facility] Culture [place] Aerobic Blood [id number] 08/07/[address] [facility] [place] Influenza Type B 08/07/[address] [facility] - Antigen Screen [place] Influenza Type A 08/07/[address] [facility] Antigen Screen [place] Emergency [id number] 04/15/2013 [facility] department visit for the evaluation and management of a patient, which requires these 3 kamara components within the constraints imposed by the urgency of the patient's clinical condition and/or mental status: A comprehensive history; A comprehensi Injection or 99.29 04/15/2013 [facility] Infusion of Other Therapeutic or Prophylactic Substance Intravenous [id number] 04/15/2013 [facility] infusion, hydration; each additional hour (List separately in addition to code for primary procedure) Therapeutic, [id number] 04/15/2013 [facility] prophylactic, or diagnostic injection (specify substance or drug); each additional sequential intravenous push of a new substance/drug (List separately in addition to code for primary procedure) Therapeutic, [id number] 04/15/2013 [facility] prophylactic, or diagnostic injection (specify substance or drug); intravenous push, single or initial substance/drug section [id number] [facility] Tubal ligation [id number] [facility] Assessment and Plan Assessment and Plan Date Source Extracted from:Title: Hospitalist Progress Note 07/30/2016 [facility] Author: Luna Jamison MD [place] Date: 07/30/16 Assessment/Plan 1.Acute on chronic kidney failure: pre-renal from overdiuresis - SANJUANA on ckd stage III--> Cr is back to baseline -She will likely have to be somewhat azotemic to stay euvolemic. -Improving with hold holding diuretics and gentle hydration over the hospitalization - her oral diuretic was restarted yesterday with no issues - ARB is on hold and can perhaps be restarted at discharge 2.Transaminitis -Hepatosplenomegaly notedearlier this admission. -Given accompanyingthrombocytopenia would recommend outpatient workup for this. -HIV and hepatitis panel negative while here. -Statin is on hold. 3.Thrombocytopenia: improving -Stable on this admission although decreased from prior. -Recommend outpatient workup for this. 5.Acute combined systolic (congestive) and diastolic (congestive) heart failure -Ejection fraction is normalized compared to prior echo that showed EF of 40- 45% - dc on loopd diuretic and betablocker - ARB held due to SANJUANA and perhaps can be restarted in future as outpatient 7.Cigarette nicotine dependence -Counseled 8.History of hypertension -Blood pressure is at goal 9.History of diabetes mellitus: a1c 8.9 -Continue basal bolus insulin with Accu-Cheks before meals at bedtime -Good glycemic control 10.History of bipolar disorder -Continue Depakote, zoloft, buproprion Disposition dc to home today Extracted from:Title: Infection Control Isolation Alert Author: Rand Noe Date: 07/24/16 ISOLATION ALERT This patient has a history of infection/colonization with MRSA. Site Date Elbow Wound 09/01/2011 Isolation Required: CONTACT Before isolation precautions may be discontinued for this hospital visit, the following protocol must be followed and Infection Control should be notified: Patient must be off antibiotics for 72 hours or 7 days if on dialysis and vancomycin. Send one MRSA PCR nares specimen. Please place order for MRSA PCR. Do not order MRSA Culture. If MRSA PCR is negative, isolation may be discontinued. Patient can only be cleared from isolation for this visit. If readmitted, patient must be isolated and screened for MRSA again. Consult Infection Control for suggested regimens for decolonization of p atients with MRSA as well as for any questions. We can be reached at [phone]. Extracted from:Title: History and Physical Author: Danae Cha DO Date: 07/24/16 Assessment/Plan 35 year old female 1.Acute respiratory failure secondary to Acute congestive heart failure. Stable on nasal cannula at 3L. Will improve with diuresis. Ordered: Admit/Condition 2.Acute combined systolic (congestive) and diastolic (congestive) heart failure Start IV lasix. Continue to monitor for clinical improvement. Stable at this time. Recent ECHO mentioned above. Ordered: Admit/Condition 3.Acute on chronic kidney failure Hold ARB. Avoid nephrotoxins if possible. Continue to monitor for improvement. Baseline Cr is~2.0 Ordered: Admit/Condition 4.Troponin level elevated Secondary to demand ischemia from congestive heart failure. Trend troponins. EKG unremarkable at this time. Ordered: Admit/Condition Admit/Condition 5.Cigarette nicotine dependence Can have nicotinepatch if needed. MAy have underlying COPD. Will need formal PFTs. Continue with duoneb treatments. Ordered: Admit/Condition 6.History of hypertension Continue with metoprolol. Hold ARB secondary toAKI on CKD. 7.History of diabetes mellitus Continue with lantus. ISS with coverage. Blood glucose stable at this time. Continue with gabapentin. 8.History of bipolar disorder History of schizophreinia and anxiety as well. Contine with zoloft and buproprion. Orders: aspirin 81 mg tablet, chewable, 81 mg, 1 tab, Route: PO, Drug form: CHEWTAB, Daily, Dosing Weight 92.273, kg, Start date: 07/24/16 9:00:00 METAL SPINNER, Duration: 30 day, Stop date: 08/22/16 9:00:00 METAL SPINNER atorvastatin, 40 mg, 1 tab, Route: PO, Drug form: TAB, Bedtime, Dosing Weight 92.273, kg, Start date: 07/24/16 21:00:00 METAL SPINNER, Duration: 30 day, Stop date: 08/22/16 21:00:00 METAL SPINNER buPROPion, 150 mg, 1 tab, Route: PO, Drug form: ERTAB, Daily, Dosing Weight 92.273, kg, Start date: 07/24/16 9:00:00 METAL SPINNER, Duration: 30 day, Stop date: 08/22 9:00:00 METAL SPINNER Dextrose 50% Syringe, 25 gm, 50 mL, Route: IVP, Drug Form: INJ, Dosing Weight 92.273, kg, PRN, PRN Blood Glucose Results, Start date: 07/24/16 2:40:00 METAL SPINNER, Duration: 30 day, Stop date: 08/23/16 2:39:00 METAL SPINNER Dextrose 50% Syringe, 12.5 gm, 25 mL, Route: IVP, Drug Form: INJ, Dosing Weight 92.273, kg, PRN, PRN Blood Glucose Results, Start date: 07/24/16 2:40:00 METAL SPINNER, Duration: 30 day, Stop date: 08/23/16 2:39:00 METAL SPINNER Depakote ER 500 mg oral tablet, extended release, 500 mg, 1 tab, Route: PO, Drug form: ERTAB, QAM, Dosing Weight 92.273, kg, Start date: 07/24/16 9:00:00 METAL SPINNER, Duration: 30 day, Stop date: 08/22/16 9:00:00 METAL SPINNER docusate, 100 mg, 1 cap, Route: PO, Drug form: CAP, BID, Dosing Weight 92.273, kg, PRN Constipation, Start date: 07/24/16 1:20:00 METAL SPINNER, Duration: 30 day , Stop date: 08/23/16 1:19:00 METAL SPINNER Lasix, 40 mg, 4 mL, Route: IVP, Drug form: INJ, Q12H, Dosing Weight 92.273, kg, Start date: 07/24/16 9:00:00 METAL SPINNER, Duration: 30 day, Stop date: 08/22/16 21: 00:00 METAL SPINNER gabapentin 300 mg oral capsule, 1 cap, Route: PO, Drug form: CAP, BID, Dosing Weight 92.273, kg, Start date: 07/24/16 9:00:00 METAL SPINNER, Duration: 30 day, Stop date: 08/22/16 17:00:00 METAL SPINNER glucagon, 1 mg, Route: IM, Drug form: PDR/INJ, PRN, Dosing Weight 92.273, kg , PRN Blood Glucose Results, Start date: 07/24/16 2:40:00 METAL SPINNER, Duration: 30 day , Stop date: 08/23/16 2:39:00 METAL SPINNER hydrALAZINE 100 mg oral tablet, 100 mg, 1 tab, Route: PO, Drug form: TAB, BID, Dosing Weight 92.273, kg, Start date: 07/24/16 9:00:00 METAL SPINNER, Duration: 30 day, Stop date: 08/22/16 17:00:00 METAL SPINNER insulin aspart, 4 unit, 0.04 mL, Route: SUB-Q, Drug form: SOLN, TID-Before Meals, Dosing Weight 92.273, kg, PRN Blood Glucose Results, Start date: 2:40:00 METAL SPINNER, Duration: 30 day, Stop date: 08/23/16 2:39:00 METAL SPINNER insulin aspart, 5 unit, 0.05 mL, Route: SUB-Q, Drug form: SOLN, TID-Before Meals, Dosing Weight 92.273, kg, PRN Blood Glucose Results, Start date: 2:40:00 METAL SPINNER, Duration: 30 day, Stop date: 08/23/16 2:39:00 METAL SPINNER insulin aspart, 2 unit, 0.02 mL, Route: SUB-Q, Drug form: SOLN, TID-Before Meals, Dosing Weight 92.273, kg, PRN Blood Glucose Results, Start date: 2:40:00 METAL SPINNER, Duration: 30 day, Stop date: 08/23/16 2:39:00 METAL SPINNER insulin aspart, 3 unit, 0.03 mL, Route: SUB-Q, Drug form: SOLN, TID-Before Meals, Dosing Weight 92.273, kg, PRN Blood Glucose Results, Start date: 2:40:00 METAL SPINNER, Duration: 30 day, Stop date: 08/23/16 2:39:00 METAL SPINNER insulin aspart, 1 unit, 0.01 mL, Route: SUB-Q, Drug form: SOLN, TID-Before Meals, Dosing Weight 92.273, kg, PRN Blood Glucose Results, Start date: 2:40:00 METAL SPINNER, Duration: 30 day, Stop date: 08/23/16 2:39:00 METAL SPINNER insulin aspart, 2 unit, 0.02 mL, Route: SUB-Q, Drug form: SOLN, TID-Before Meals, Dosing Weight 92.273, kg, Start date: 07/24/16 7:30:00 METAL SPINNER, Duration: 30 day, Stop date: 08/22/16 16:30:00 METAL SPINNER Lantus 100 units/mL, 40 unit, 0.4 mL, Route: SUB-Q, Drug form: SOLN, Daily, Dosing Weight 92.273, kg, Start date: 07/24/16 9:00:00 METAL SPINNER, Duration: 30 day, Stop date: 08/22/16 9:00:00 METAL SPINNER metoprolol extended release, 100 mg, 2 tab, Route: PO, Drug form: ERTAB, Daily, Start date: 07/24/16 9:00:00 METAL SPINNER, Duration: 30 day, Stop date: 08/22/16 9 :00:00 METAL SPINNER ondansetron, 4 mg, 2 mL, Route: IVP, Drug form: INJ, Q6H, Dosing Weight 92.273, kg, PRN Nausea and Vomiting, Start date: 07/24/16 1:20:00 METAL SPINNER, Duration : 30 day, Stop date: 08/23/16 1:19:00 METAL SPINNER Protonix, 40 mg, 1 tab, Route: PO, Drug form: ECTAB, Daily, Dosing Weight 92.273, kg, Start date: 07/24/16 9:00:00 METAL SPINNER, Duration: 30 day, Stop date: 08/22 9:00:00 METAL SPINNER Zoloft, 200 mg, 2 tab, Route: PO, Drug form: TAB, Daily, Dosing Weight 92.273, kg, Start date: 07/24/16 9:00:00 METAL SPINNER, Duration: 30 day, Stop date: 08/22 9:00:00 METAL SPINNER Up ad monique Ambulation Basic Metabolic Panel CDM Admission Acute Care Post ED CDM Aspart (Novolog) for Starting Correction Doses CDM Cardiac Enzymes Panel CDM Insulin Sub-Q Orders for patients on Oral Nutrition Complete Blood Count w/ Diff and Platelet Creatine Kinase w/ Reflex MB Isoenzyme Diet Heart Healthy Hypoglycemia Management Hypoglycemia Management Intake and Output Magnesium Level Notify MD Notify MD Notify MD Notify MD Oxygen Therapy Patient Education AC4 Provide Education AC4 Phosphorus Level Point of Care Blood Glucose AC4 Point of Care Blood Glucose AC4 Pulse Oximetry Spot Check by Nurse Resuscitation (Code) Status Telemetry (e.g. Acute Care Floor) Troponin-I Troponin-T Vital Signs [facility] hospitalist is primary. Please call [phone] for additional questions. Prophylaxis TEDs Disposition DC when medically stable. Extracted from:Title: Team A Discharge Summary 06/15/2016 [facility] Medical Author: Gina Gomes MD Center Date: 06/15/16 Team A Discharge Summary Name: Cathi Rowley Admission Date: 06/10/16 Discharge Date: 06/15/16 Admission Diagnosis: Volume overload, SANJUANA, hypertensive urgency Discharge Diagnosis: Volume overload secondary to CHF and nephrotic syndrome, SANJUANA vs CKD, hypertension Consultants: None Hospital course: Ms. Rowley is a 35-year-old F with PMH HTN, uncontrolled Type 1 DM, bipolar disorder, schizoaffective disorder, anxiety d/o who presented to the ED with 1- 2 weeks of BABCOCK, SOB, left-sided chest pain, and lower-extremity edema. In the ED she was hypoxic to 89% on RA. EKG showed NSR and cardiac enzymes were negative. BNP was found to be elevated at 1135. Labs showed Cr 1.6 from 0.8 in 2015. She was also n oted to be hypertensive with SBPs 180s-200s. She was admitted due to concern for acute heart failure. UA showed >300 proteinuria. Renal U/S showed no abnormalities, UPC showed 6.9 g proteinuria consistent with diabetic nephropathy. Her BP was controlled with an oral regimen. TTE showed EF 40-45%, RVSP 57 and she was placed on appropriate heart failure medical management. She was diuresed with significant improvement in oxygenation and edema and was discharged on PO lasix. During this admission she was noted to be wheezing which improved with albuterol. She was discharged in stable condition and verbalized her understanding and agreement with the plan. Labs pertinent to hospital course: BNP 1135 -> 526; A1C 10.5, Urine protein/creatinine 6.9, IVETTE 1:40 Imaging during hospital stay: Renal U/S - IMPRESSION: 1. Large amount of impacted soft stool throughout the colon, with constrictive obstructive lesion in the region of the sigmoid colon consistent with known colon cancer. 1.2 cm left iliac node. 2. Multiple ill-defined hypodense lesions throughout the liver consistent with metastatic lesions. 3. Intra and extrahepatic biliary dilation, with soft tissue prominence at the level of the ampulla concerning for lesion, correlation may be obtained with MRCP/ERCP. TTE - Conclusions 1) Left ventricle is normal in cavity size with mild concentric hypertrophy. The left ventricular systolic function is mildly impaired globally with an estimated LV ejection fraction of 40-45%. 2) Right ventricle is normal in size and systolic function. 3) Both atria are normal in size. 4) Mild-moderate tricuspid regurgitation. 5) Estimated RVSP is elevated at 57 mmHg. 6) There is a trivial pericardial effusion. 7) There is no previous study for comparison. Procedures during hospital stay: Physical Exam: Vitals Tmp(F) Pulse BP RR SpO2 FIO2 06/15 09:14 ---- --- ----- -- 94 21% 06/15 09:00 ---- 79 169/90 20 --- --- 06/15 08:00 ---- 78 151/73 16 95 --- 06/15 07:29 ---- 79 176/95 22 95 --- 06/15 07:19 96.4 --- ----- -- --- --- 24 Hr Tmax: 97.6F (36.44c) at 06/15 00:00 Vital Signs are the last 5 in the past 48 hours. General: AAOx3, NAD HEENT: NC/AT, EOMI, PERRLA Neck: Supple, no LAD, no JVD Cardiac: RRR, no m/r/g Respiratory: scattered crackles, occasional wheezes, no w/r/r Abdomen: Soft, NT, ND, no organomegaly Extremities: trace lower extremity edema, no cyanosis/clubbing Neurologic: no focal deficits, strength 5/5 throughout Discharge Condition: Discharge Medications: Prescribed albuterol: 2 puff, INHALATION, PRN, for 30 day, use as needed for shortness of breath or wheezing, PRN: as needed for wheezing, 8 gm , 0 Refill(s). aspirin: 81 mg, 1 tab, PO, Daily, for 30 day, 30 tab, 0 Refill(s). atorvastatin: 40 mg, 1 tab, PO, Bedtime, 30 tab, 0 Refill(s). furosemide: 80 mg, 2 tab, PO, BID, for 30 day, 120 tab, 0 Refill(s) . hydrALAZINE: 100 mg, 1 tab, PO, BID, 60 tab, 0 Refill(s). hydrOXYzine: 50 mg, 1 cap, PO, TID, for 30 day, 90 cap, 0 Refill(s) . insulin glargine: 40 unit, SUB-Q, Daily, 10 mL, 0 Refill(s). losartan: 25 mg, 1 tab, PO, Daily, for 30 day, 30 tab, 0 Refill(s). metoprolol: 100 mg, 1 tab, PO, Daily, 30 tab, 0 Refill(s). Documented buPROPion: 150 mg, 1 tab, PO, Daily, 0 Refill(s). divalproex sodium: 500 mg, 1 tab, PO, QAM, AND 2 TAB AT BEDTIME, 0 Refill(s). gabapentin: 1 CAP PO BID AND 1 CAP AT BEDTIME, 0 Refill(s). paliperidone: IM, qMonth, 0 Refill(s). pantoprazole: 40 mg, 1 tab, PO, Daily, 0 Refill(s). sertraline: 200 mg, 2 tab, PO, Daily, 0 Refill(s). Home Diet: Low carbohydrate, low sodium diet Discharge Activity: As tolerated Discharge Instructions: Please notify your physician if any of the following occur: Bleeding, Fever, Nausea, Pain, Shortness of breath, Signs of infection, Swelling Pending Labs/Procedures: None Items needing to be addressed during PCP follow up: DM, HTN, and CHF management Follow Up Appts: Follow Up With [facility] , Call for appointment, within: 2 Weeks Gina Gomes MD PGY-2, Internal Medicine ATTENDING NOTE: I saw and examined this medically complex patient, reviewed the labs and radiographic data, and agree with this note. Joe Juárez MD, FACP, FASN, FCCM Extracted from:Title: Team A Progress Note * Author: Gina Gomes MD Date: 06/14/16 Patient: CATHI ROWLEY Age: 35 years Sex: Female : 1980 Associated Diagnoses: None Author: Gina Gomes MD Subjective No acute events overnight. Denies SOB, CP, nausea, vomiting. Review of Systems Constitutional: No fever, No chills. Respiratory: No shortness of breath, No cough. Cardiovascular: No chest pain, No palpitations. Gastrointestinal: No nausea, No vomiting. Genitourinary: No dysuria, No hematuria. Musculoskeletal: No joint pain, No muscle pain. Neurologic: Alert and oriented X4, No confusion. Health Status Allergies: Allergic Reactions (Selected) Severity Not Documented Ambien- No reactions were documented. Codeine- No reactions were documented. Lisinopril- Angioedema. Penicillins- No reactions were documented. Prolex DM- No reactions were documented. Problem list: All Problems (Selected) Hypertension / SNOMED CT 57471234 / Confirmed Hypokalemia / SNOMED CT 52917609 / Confirmed Hypomagnesemia / ICD-9-CM 275.2 / Confirmed MRSA / SNOMED CT 382205319 / Confirmed Problem added by Discern Expert. 09/01/11 - Elbow wound Nausea and vomiting / SNOMED CT 05696428 / Confirmed Objective Meds Scheduled Meds (15):aspirin (aspirin 81 mg tablet, chewable), atorvastatin, buPROPion (Wellbutrin XL), divalproex sodium (Depakote 500 mg oral enteric coated tablet), divalproex sodium, furosemide, constance pentin (gabapentin 300 mg oral capsule), heparin (heparin 5000 units/mL injectable solution), hydrALAZINE (hydrALAZINE 50 mg oral tablet), hydrOXYzine ( hydrOXYzine pamoate), insulin glargine (Lantus 100 units/mL), lactulose, losartan, metoprolol (metoprolol extended release), sertraline (Zoloft) Unscheduled Meds: None PRN Meds (10):Dextrose 50% in Water IV (Dextrose 50% Syringe), Dextrose 50% in Water IV (Dextrose 50% Syringe), albuterol-ipratropium (DuoNeb inhalation solution), glucagon, hydrALAZINE, insulin aspart, insulin aspart, insulin aspart, insulin aspart, insulin aspart One Time Meds (1):(Completed) magnesium oxide Continuous Infusions: None I&O Input/Output Record In Out Bal 06/14 24hr Tot 38 1800 -1762 06/13 24hr Tot 730 2700 -1970 VS/Measurements Vital Signs (last 24 hrs) Last Charted Temp Axillary 96.8 DegF (JUN 14 16:25) Heart Rate Apical 73 bpm (JUN 14 15:00) Resp Rate 20 BRMIN (JUN 14 15:) SBP H 149mmHg (JUN 14 15:) DBP H 92mmHg (JUN 14 15:00) SpO2 98 % (JUN 14 15:) General: Alert and oriented, No acute distress. Eye: Extraocular movements are intact, Normal conjunctiva. HENT: Normocephalic, Normal hearing. Neck: Supple, Non-tender, No jugular venous distention. Respiratory: Respirations are non-labored, coarse breath sounds, rhonchi. Cardiovascular: Normal rate, Regular rhythm. Gastrointestinal: Soft, Non-tender, Normal bowel sounds. Integumentary: Intact, No pallor, No rash. Psychiatric: Cooperative, Appropriate mood and affect. Review / Management Results review: Labs (Last four charted values) WBC 5.0 (JUN 14) 5.7 (JUN 13) 5.3 (JUN 12) 4.8 (JUN 11) Hgb L 9.4 (JUN 14) L 9.7 (JUN 13) L 9.0 ( JUN 12) L 8.7 (JUN 11) Hct L 28.5 (JUN 14) L 29.4 (JUN 13) L 27.7 ( JUN 12) L 27.0 (JUN 11) Plt 183 (JUN 14) 184 (JUN 13) 169 (JUN 12) 142 (JUN 11) Na 142 (JUN 14) 145 (JUN 13) 143 (JUN 12) 141 (JUN 11) K 4.4 (JUN 14) 4.3 (JUN 13) 4.0 (JUN 12) 4.2 (JUN 11) CO2 32 (JUN 14) 32 (JUN 13) 31 (JUN 12) 31 (JUN 11) Cl 101 (JUN 14) 103 (JUN 13) 103 (JUN 12) 104 (JUN 11) Cr H 2.00 (JUN 14) H 1.63 (JUN 13) H 1.63 ( JUN 12) H 1.58 (JUN 11) BUN H 37 (JUN 14) H 37 (JUN 13) H 34 (JUN 12 ) H 31 (JUN 11) Glucose Random H 119 (JUN 14) H 173 (JUN 13) H 101 ( JUN 12) H 300 (JUN 11) Mg 2.0 (JUN 14) L 1.7 (JUN 13) 1.9 (JUN 12 ) 2.0 (JUN 11) Phos H 4.8 (JUN 14) 4.2 (JUN 13) 4.2 (JUN 12 ) 4.1 (JUN 11) Ca 8.7 (JUN 14) 8.5 (JUN 13) L 8.3 (JUN 12 ) L 8.3 (JUN 11) PT 14.0 (JUN 11) INR 1.06 (JUN 11) PTT H 36.4 (JUN 11) Troponin <0.02 (JUN 10) <0.02 (JUN 10) CK MB 2.9 (JUN 10) Total CK 159 (JUN 10) . Impression and Plan 35 yo female with a PMH significant for HTN, diabetes mellitus type 1 , bipolar disorder I, schizoaffective disorder, and anxiety who presents to the ED with a 1 week history of worsening dyspn ea on exertion, wheezing, shortness of breath, left-sided chest pain, and lower extremity edema. #Volume overload: - Secondary to CHF and nephrotic syndrome - Presented with BABCOCK, orthopnea, lower extremity edema - TTE - EF 40-45%, RVSP 57 - 6 g proteinuria c/w nephrotic syndrome - Requiring 2L NC - Continue diuresis, increased to 80 IV BID #Acute CHF: - TTE - EF 40-45%, RVSP 57 - Will have Lasix 60mg IV Q12H - Elevated BNP of 1135 on admission - Continue ASA, losartan, metoprolol, atorvastatin #SANJUANA? vs CKD - Cr on admission was elevated at 1.62, previous admission in 2014 with Cr of 0.5 - Possibly cardiorenal in nature or from elevated blood pressure - Urine protein/Cr ratio of 5.4 - May be new baseline #Hypertension: - SBP 180-210 in ED - BP improved with hydralazine 100 TID, losartan 25, lasix 80 IV q12h, metoprolol 100 qd - Will continue to monitor BP and adjust as needed #Diabetes mellitus type 1 : - Home regimen of lantus 50 units daily with Novolog SSI - Decreased to 30 U daily inpatient due to hypoglycemia - Continue home regimen of gabapentin 300mg TID for neuropathic pain #Bipolar disorder I: - Hx of mood disorder - Currently on Depakote 500mg TID - Continue zoloft 200mg daily, welbutrin 50mg daily - Will continue to monitor mood for any changes #Anxiety: - Hydroxyzine 50mg TID Diet: Diabetic Diet DVT Prophylaxis: Heparin SubQ Code: Full DISPO: Pending clinical improvement Gina Gomes MD PGY-2, Internal Medicine Addendum by Joe Juárez MD on 06/15/2016 14:16 ATTENDING NOTE: I saw and examined this medically complex patient on 06-14-2016, reviewed the labs and radiographic data, and agree with this note. Joe Juárez MD, FACP, FASN, FCCM Extracted from:Title: Infection Control Isolation Alert Author: Rand Noe Date: 06/12/16 ISOLATION ALERT This patient has a history of infection/colonization with MRSA. Site Date Elbow 09/01/2011 Isolation Required: CONTACT Before isolation precautions may be discontinued for this hospital visit, the following protocol must be followed and Infection Control should be notified: Patient must be off antibiotics for 72 hours or 7 days if on dialysis and vancomycin. Send one MRSA PCR nares specimen. Please place order for MRSA PCR. Do not order MRSA Culture. If MRSA PCR is negative, isolation may be discontinued. Patient can only be cleared from isolation for this visit. If readmitted, patient must be isolated and screened for MRSA again. Consult Infection Control for suggested regimens for decolonization of p atients with MRSA as well as for any questions. We can be reached at . Extracted from:Title: Medicine Team A History and Physical Author: Silverio Robles MD Date: 06/10/16 Medicine Team A History and Physical Note: Patient Room: [place] [address], [facility] 35[facility] (: 1980) F Attending: Joe Juárez MD Service: Nephrology CHIEF COMPLAINT: Shortness of breath, lower extremity edema HISTORY OF PRESENT ILLNESS: 35 yo female with a PMH significant for HTN, diabetes mellitus type 1 , bipolar disorder I, schizoaffective disorder, and anxiety who presents to the ED with a 1 week history of worsening dyspn ea on exertion, wheezing, shortness of breath, left-sided chest pain, and lower extremity edema. Patient mentions that the wheezing started about a week ago and she has been sleeping on the couch at 45 degree angle for the last past week; lying supine causes difficulty breathing. She has also had shortness of breath while resting; for the last 2 weeks she has had left shoulder muscle ache with inter mittent throbbing left sided chest pain that is occasionally sharp in nature. She usually takes 2 tabs of tylenol, which releives the pain; the chest pain does not radiate and worsens with movement, bu t not with inspiration. Patient usually gets short of breath after 1 flight of stairs. Patient mentions being on lisinopril previously, but having an allergic reaction of angioedema. Patient was rece ntly placed on hydralazine 75mg TID and metoprolol 50mg BID and was afraid of having a reaction, since she started to become short of breath. Last night, patient started to have increased swelling of t he lower extremities; she also mentioned having feeling of throat swelling last night. Currently, she is able to swallow without dysphagia or odynophagia. Her SPO2 is 93# on 2L O2 via NC. At the ED, patient had some hypoxia with SPO2 of 89%, therefore, she was placed on O2 via NC. EKG showed normal sinus rhythm. In the ED, she did have an elevated BNP of 1135; troponins were negative & amp;lt;0.02 x1; SANJUANA with Cr of 1.62 (in 2015, her Cr was 0.5). Patient was hypertensive at ED with Bp 180/84. She received lasix 40mg IV x1 at the ED. PAST MEDICAL HISTORY: HTN, diabetes mellitus type 1, bipolar disorder I, schizoaffective disorder, and anxiety PAST SURGICAL HISTORY: x2, tubal ligation bilaterally, R elbow infection with I&D SOCIAL HISTORY: Smokes about 3 cigarettes a day, previously about 1 1/2 ppd ( started at age 13); no alcohol use, denies illicit drug use. Currently lives with mother, 2 daughters, and sister; no sick contacts, no recent travels FAMILY HISTORY: Mother- breast cancer, father- colon cancer, DM2 on maternal and paternal sides, maternal aunts- breast cancer, maternal side-seizures and thyroid problems, paternal side-mental health problems Allergies (5) Active Reaction lisinopril angioedema Ambien None documented Prolex DM None documented codeine None documented penicillins None documented Medications (14) Active Scheduled Meds (9): 06/10/16 albuterol-ipratropium (DuoNeb inhalation solution) 3 mL NEB QID 06/10/16 divalproex sodium (Depakote 500 mg oral enteric coated tablet) 1 tab PO TID 06/11/16 furosemide 60 mg IVP Q12H 06/11/16 gabapentin (gabapentin 300 mg oral capsule) 300 mg PO TID 06/10/16 hydrALAZINE 100 mg PO TID 06/10/16 hydrOXYzine (hydrOXYzine pamoate) 50 mg PO TID 06/10/16 losartan 25 mg PO Daily 06/10/16 metoprolol (metoprolol extended release) 100 mg PO Daily 06/11/16 sertraline (Zoloft) 200 mg PO Daily Unscheduled Meds: None PRN Meds (2): 06/10/16 albuterol-ipratropium (DuoNeb inhalation solution) 3 ml NEB PRN 06/10/16 hydrALAZINE 10 mg IV Q4H One Time Meds (3): 06/10/16 (Completed) furosemide (Lasix) 40 mg IVP ONCE 06/10/16 (Completed) furosemide 60 mg IVP ONCE 06/10/16 (Completed) hydrALAZINE 10 mg IV ONCE Continuous Infusions: None REVIEW OF SYSTEMS: GEN- Denies any fever, chills, fatigue EYES- Denies changes in vision EARS- Denies changes in hearing NECK- Denies any dysphagia, odynophagia CVS- Positive for chest pain, denies any palpitations RESP- Positive for difficulty breathing and shortness of breath ABD- Denies any abdominal pain, diarrhea, or nausea/vomiting NEURO- Denies any headaches, lightheadedness, or dizziness SKIN- Denies any skin rashes ENDO- Denies polyuria or polydipsia MSK- Denies any bone pain or myalgias PSYCH- Denies any changes in mood PHYSICAL EXAMINATION: Vital Signs - Reviewed Vitals Tmp(F) Pulse BP RR SpO2 FIO2 06/10 18:00 ---- 81 212/93 18 97 2.0L/m 06/10 14:30 ---- 82 180/84 18 93 2.0L/m 06/10 12:37 ---- 81 185/92 19 89 --- 06/10 11:00 ---- 80 141/88 26 97 1.0L/m 06/10 10:45 ---- 79 134/61 22 94 --- 24 Hr Tmax: 98F (36.67c) at 06/10 10:04 Vital Signs are the last 5 in the past 48 hours. Date Wt(kg) Wt(lb) Ht(cm) Ht(in) Method 06/10 (initial) 86.36 190.00 Estimated 06/10 160.02 63.00 Stated General- Awake, sitting in bed, appears stated age, in no apparent distress, wearing nasal canula with 2L O2 Head- Normocephalic, atraumatic Eyes- extraocular muscles intact, PERRL, sclerae anicteric Mouth- moist mucous membranes, no erythema of oropharynx Ears- normal hearing Neck- neck supple, no lymphadenopathy CVS- RRR, normal S1/S2, no gallops, no murmurs Chest- Crackles auscultated in all lung dick, ronchi present in all lung dick, wheezes auscultated bilaterally Abdomen- Soft, nontender to palpation, nondistended, bowel sounds present, no organomegaly Extremities- Warm to touch bilaterally, full range of motion of upper and lower extremities bilaterally, upper and lower extremities strength 5/5 bilaterally, 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, pitting pedal edema bilaterally 2+ Skin-No skin rashes present; ulceration of great toes bilaterally with bandaging in place Neuro- Alert and oriented x3, CN 2-12 intact, decreased light touch sensation of lower extremities bilaterally from toes up to about mid mcdermott region, palms of hands wiht decreased sensation bilaterally Psych- Cooperative, euphoric mood DATA: 24hr Labs 06/10 1053 Temp Roberth 37.0 pH Roberth 7.42 pCO2 Roberth 46 pO2 Rober[place] 49 HCO3 Roberth 30 H BE Roberth 4 H O2 Sat Roberth 85.0 H Glucose Lvl 224 H BUN 33 H Creatinine Lvl 1.62 H Sodium Lvl 139 Potassium Lvl 4.5 Chloride Lvl 103 CO2 28 AGAP 12.5 Calcium Lvl 8.1 L eGFR 41 Troponin-I <0.02 BNP 1135 H WBC 6.5 RBC 3.39 L Hgb 9.0 L Hct 27.5 L MCV 81.3 MCH 26.7 L MCHC 32.9 RDW 16.0 H Platelet 153 MPV 10.0 Segs 58.0 Monocytes 9.5 Lymphocytes 21.0 Eosinophils 10.6 H Basophils 0.9 Segs-Bands # 3.8 Lymphocytes # 1.4 Monocytes # 0.6 Eosinophils # 0.7 H Basophils # 0.1 Imaging: CXR 06/10/16: No acute cardiopulmonary abnormalities ASSESSMENT AND PLAN: 35 yo female with a PMH significant for HTN, diabetes mellitus type 1 , bipolar disorder I, schizoaffective disorder, and anxiety who presents to the ED with a 1 week history of worsening dyspn ea on exertion, wheezing, shortness of breath, left-sided chest pain, and lower extremity edema. #Volume overload: - Possible acute CHFor possible proteinuria - Patient has dyspnea on exertion, unable to lie supine, sleeps at 45 degree angle, short of breath after 1 flgiht of stairs - Presents of lower extremity edema 2+, pitting pedal edema that started last night - Lungs with crackles and ronchi present bilaterally, SPO2 of 89% on room air - Currently on 2L O2 via NC wiht SPO2 96% - s/p lasix 40mg IV at ED - s/p another lasix 60mg IV x1 - Will have Na restriction, strict I/Os - Will have duonebs QID for shortness of breath #Possible acute CHF: - Will have Lasix 60mg IV Q12H - Elevated BNP of 1135 on admission - Will start ASA 81mg - Troponins negative x1 at ED - Will continue to trend cardiac enzymes - EKG on admission with NSR - Will get TTE for further evaluation #Proteinuria: - UA on admission with >300 protein in urine - Albumin low at 1.8 - Likely contributing to the lower extremity edema #SANJUANA: - Cr on admission was elevated at 1.62, previous admission in 2014 with Cr of 0.5 - Possibly cardiorenal in nature or from elevated blood pressure - Will follow-up urine protein/Cr ratio - Will continue to monitor #Hypertensive urgency: - Elevated BP at the ED of 180/84 which subsequently increased to 212/93 - Started on metoprolol 100mg PO daily, hydralazine 100 mg PO TID, losartan 25 mg PO Daily, and furosemide 60 mg IVP Q12H - s/p total of lasix 100mg IV at ED and hydralazine 10mg IV x1 at ED - Patient is allergic to lisinopril (angioedema) - Will continue to monitor BP and adjust as needed #Diabemes mellitus type 2: - Home regimen of lantus 50 units daily with Novolog SSI - Will start Lantus 40units daily for now and adjust as needed - Will have Aspart low dose SSI - Will follow-up with HbA1c - Diabetic foot ulcerations located on plantar surface of great toes bilaterally - Glove and stocking distribution of neuropathy - Continue home regimen og gabapentin 300mg TID for neuropathic pain #Bipolar disorder I: - Hx of mood disorder - Currently on Depakote 500mg TID - Continue zoloft 200mg daily, welbutrin 50mg daily - Will continue to monitor mood for any changes #Anxiety: - Will start home regiment of Hydroxyzine 50mg TID Diet: Diabetic Diet DVT Prophylaxis: Heparin SubQ Code: Full DISPO: Pending further work-up of shortness of breath, lower extremity edema and proteinuria Silverio Robles MD PGY-1 ATTENDING NOTE: I saw and examined this medically complex patient, reviewed the labs and radiographic data, and agree with this note. Joe Juárez MD, FACP, FASN, FCC Plan of Care Plan of Care Date Source No known plan of care. 10/07/2017 [facility] No known plan of care. 10/07/[address] [facility] Social History Social History Date Source Query Response Date Recorded Comment 09/09/2017 [facility] Abdullahi Alcohol Use? No September 10, 2017 4:12pm CD- Drugs? No September 10, 2017 4:12pm Query Response Start Date Stop Date Smoking Status Light Tobacco smoker (1-9 cigarettes/day) September 09, 2017 Social History TypeResponse 06/11/2016 [facility] Substance Abuse Use: None. Alcohol Never Smoking Status Unknown if ever smoked; Exposure to Tobacco Smoke None; Cigarette Smoking Last 365 Days No; Reg Smoking Cessation Counseling No Family History Value Date Source Query Response Instance Date Recorded Comment 10/07/[address] [facility] Nurses notes hypothyroid, asthma, breast cancer Mother September 10, 2017 4:12pm Nurses notes - stomach/ lung/ prostate cancer, diabetes Father September 10, 2017 4:12pm Medical History Hypertension Diabetes Cancer Other (see notes) Mother September 10, 2017 4:12pm Medical History Diabetes Cancer Father September 10, 2017 4:12pm Nurses notes hypothyroid, asthma, breast cancer September 19, 2016 8:39am Medical History Hypertension Diabetes Cancer Other (see notes) September 19, 2016 8:39am Advance Directives Order Name Results Value Date Source Advance Directives Advance Directives Advance Directive Response Recorded Date/Time 10/07/2017 [facility] Donohue - Does Patient Have Living Will [place] No September 10, 2017 6:00am Durable Power of Cash Poster for Health Care No September 09, 2017 4:44am Would you like additional information No September 09, 2017 4:02am Functional Status No Data Provided for This Section
--- OUTSIDE RECORDS SUMMARY | 2019-03-04 15:05 | XMS REPORT | CCD ---
:1980 Author Organization [facility] Care Team Providers Name Role Phone Blake [...] Active Nausea and vomiting Active - Elbow [id number] added by Discern Expert. Medications Medication Instructions [...] range values reflect the clinical guidelinesof the [place] [employer].5Interpretive Data: Drugs reported as positive [...]
--- OUTSIDE RECORDS SUMMARY | 2019-03-04 15:06 | XMS REPORT | CCD ---
:1980 Author Organization [facility] Care Team Providers Name Role Phone [...] based on the clinical recommendations of the [place] [employer].6Interpretive Data: Reference Ranges : 0 - 7 days : 41 - 90 mg/dL7 days - 150 yrs : 70 - 99 mg/ dL (fasting), based on the clinical recommendations of the [place] [employer].7Interpretive Data: Reference Ranges : 0 - 7 days : 41 - 90 mg/ dL7 days - 150 yrs : 70 - 99 mg/dL (fasting), based on the clinical recommendations of the [place] [employer].HEMATOLOGY Most recent to oldest 1 [...]
--- OUTSIDE RECORDS SUMMARY | 2019-03-04 15:06 | XMS REPORT | CCD ---
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 Medications Medication Instructions [...] IVPB, Drug 09/01/2011 09/01/2011 Deleted form: INJ, [id number], Start date: 09/01/11 20:00:00, Duration: 30 day, Stop date: 10/01/11 8:00:00 clindamycin 600 mg, Route: IVPB, 09/07/2011 09/07/2011 Completed ONCE, Start date: 09/07/11 8:31:00, Stop date: 09/07/11 8:31:00 morphine Sulfate 4 mg, 1 mL, Route: IVP, 09/01/2011 09/01/2011 Completed Drug form: INJ, ONCE, Start date: 09/01/11 12:13:00, Stop date: 09/01/11 12:13:00 Edwards 10/325 oral tablet 1 tab, Route: PO, [...] times, Stop date: Limited # of times Edwards 5/325 oral tablet 1 tab, Route: PO, [...] IVPB, Drug 09/01/2011 09/02/2011 Discontinued form: INJ, [id number], Start date: 09/01/11 19:00:00, Duration: 30 day, [...] Ordered capsule 30 cap, Substitution Allowed, CAP Edwards 10/325 oral tablet 1 tab, PO, Q4H, [...] IVPB, Drug 09/02/2011 09/03/2011 Discontinued form: INJ, [id number], Start date: 09/02/11 9:00:00, Duration: 30 day, [...] date: 09/02/11 11:15:00, Stop date: 09/02/11 11:15:00 Edwards 10/325 oral tablet 1 tab, Route: PO, Drug 09/04/2011 09/09/2011 Discontinued Form: TAB, Q4H, PRN Pain, Start date: 09/04/11 9:49:00, Stop date: 10/04/11 9:48:00 Edwards 10/325 oral tablet 1 tab, Route: PO, [...] Duration: 30 day, Stop date: 10/01/11 21:00:00 Edwards 5/325 oral tablet 1 tab, Route: PO, [...] based on the clinical recommendations of the [place] [employer].5Interpretive Data: Reference Ranges : 0 - 7 days : 41 - 90 mg/dL7 days - 150 yrs : 70 - 99 mg/dL (fasting), based on the clinical recommendations of the [place] [employer].6Interpretive Data : Reference Ranges : 0 - 7 days : 41 - 90 mg/dL7 days - 150 yrs : 70 - 99 mg/dL (fasting), based on the clinical recommendations of the [place] [employer].HEMATOLOGY Most recent to oldest 1 [...] Data: Heparin Therapeutic Range: 57 - 92 [id number] Data: Heparin Therapeutic Range: 57 - 92 [...] SOURCE: [place] septic bursitis, [place] [address],cup FINAL REPORTS Final ReportMany Methicillin Resistant Staphylococcus aureus Refer To Culture # [id number] (collected 09/01/11) For Susceptibility ResultsPRELIMINARY REPORTS Preliminary [...] rt septic barsitis , [place], [address],e- swab FINAL REPORTS Final ReportModerate Methicillin Resistant Staphylococcus aureus Refer To Culture # [id number] (collected 09/01/11) For Susceptibility ResultsPRELIMINARY REPORTS Preliminary [...] TEXT SOURCE: rt septic bursitis,[place] [address],e-swab FINAL REPORTS Final ReportMany Methicillin Resistant Staphylococcus aureusPRELIMINARY REPORTS Preliminary ReportYoung Growth, Reincubating Many Staphylococcus aureus Preliminary ReportMany Staphylococcus aureus Preliminary ReportYoung Growth, Reincubating STAIN REPORTS Stain ReportMany Wbc'S; Many Rbc'S Few Gram Positive Cocci In Clusters Significant Findings Called To: VALDEMAR, [id number], Olga Castorena RN At: 09/01/2011 22:52:25 Called [...]
--- OUTSIDE RECORDS SUMMARY | 2019-03-04 15:06 | XMS REPORT | CCD ---
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 Medications Medication Instructions [...] range values reflect the clinical guidelinesof the [place] [employer].HEMATOLOGY Most recent to [...]
--- OUTSIDE RECORDS SUMMARY | 2019-03-04 15:07 | XMS REPORT | CCD ---
:1980 Author Organization [facility] Care Team Providers Name Role Phone [...] Active Nausea and vomiting Active - Elbow [id number] added by Discern Expert. Medications Medication Instructions [...] Seen /LPF] Few /LPF (04/14/2013 23:48:55) UA [place] Yeast [None Seen /HPF] Occasional /HPF *ABN* [...] values reflect the clinical guidelines of the [place] Diabetes [employer].HEMATOLOGY Most recent to oldest [Reference [...]
--- OUTSIDE RECORDS SUMMARY | 2019-03-04 15:07 | XMS REPORT | CCD ---
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 Medications Medication Instructions [...] Seen /LPF] Few /LPF (04/14/2013 23:48:55) UA [place] Yeast [None Seen /HPF] Occasional /HPF *ABN* [...] values reflect the clinical guidelines of the [place] Diabetes Association.HEMATOLOGY Most recent to oldest [Reference [...]
--- OUTSIDE RECORDS SUMMARY | 2019-03-04 15:07 | XMS REPORT | CCD ---
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 Medications Medication Instructions [...] Seen /LPF] Few /LPF (04/14/2013 23:48:55) UA [place] Yeast [None Seen /HPF] Occasional /HPF *ABN* [...] values reflect the clinical guidelines of the [place] Diabetes [employer].HEMATOLOGY Most recent to oldest [Reference [...]
--- OUTSIDE RECORDS SUMMARY | 2019-03-04 15:07 | XMS REPORT | CCD ---
:1980 Author Organization [facility] Care Team Providers Name Role [...] Active Nausea and vomiting Active - Elbow [id number] added by Discern Expert. Medications Medication Instructions [...] Seen /LPF] Few /LPF (04/14/2013 23:48:55) UA [place] Yeast [None Seen /HPF] Occasional /HPF *ABN* [...] values reflect the clinical guidelines of the [place] Diabetes [employer].HEMATOLOGY Most recent to oldest [Reference [...]
--- OUTSIDE RECORDS SUMMARY | 2019-03-04 15:07 | XMS REPORT | CCD ---
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 Medications Medication Instructions [...] values reflect the clinical guidelines of the [place] Diabetes [employer].HEMATOLOGY Most recent to oldest [Reference [...]
--- OUTSIDE RECORDS SUMMARY | 2019-03-04 15:07 | XMS REPORT | CCD ---
:1980 Author Organization [facility] Care Team Providers Name Role Phone [...] Active Nausea and vomiting Active - Elbow [id number] added by Discern Expert. Medications Medication Instructions [...] Seen /LPF] Few /LPF (04/14/2013 23:48:55) UA [place] Yeast [None Seen /HPF] Occasional /HPF *ABN* [...] values reflect the clinical guidelines of the [place] Diabetes [employer].HEMATOLOGY Most recent to oldest [Reference [...]
--- OUTSIDE RECORDS SUMMARY | 2019-03-04 15:09 | XMS REPORT ---
:1980 [facility] [address] [place] [address] Care Team Providers Name Role Phone MOISE [...] Range Comments HERPES VIRUS IGM (BEAKER) (test pybm=3545) Negative SEE ATTACHMENT BLOOD [id number] 06:00:00 Test Item Value Reference Range Comments CULTURE (BEAKER) (test vhkk=3805) No growth in 5 days BLOOD [id number] 06:00:00 Test Item Value Reference Range Comments CULTURE (BEAKER) (test thgd=8605) No growth in 5 days POCT-GLUCOSE [id number] 12:11:00 Test Item Value Reference Range Comments POC-GLUCOSE METER (BEAKER) 154 mg/dL 70-110 TESTED AT [address] (test whzy=6872) [facility] [address] POCT-GLUCOSE [id number] 07:53:00 Test Item Value Reference Range Comments POC-GLUCOSE METER (BEAKER) 87 mg/dL 70-110 TESTED AT [address] (test tbwn=3547) [facility] [address] POCT-GLUCOSE [id number] 06:49:00 Test Item Value Reference Range Comments POC-GLUCOSE METER (BEAKER) 79 mg/dL 70-110 TESTED AT [address] (test zyey=3182) [facility] [address] COMPREHENSIVE METABOLIC [id number] 06:15:00 Test Item Value Reference Range Comments TOTAL PROTEIN (BEAKER) 5.1 gm/dL 6.0-8.3 (test rqht=634) ALBUMIN (BEAKER) (test 2.2 g/dL 3.5-5.0 yuui=0859) ALKALINE PHOSPHATASE 78 U/L 40-150 (BEAKER) (test fcca=290) BILIRUBIN TOTAL (BEAKER) 1.1 mg/dL 0.2-1.2 (test gsyu=832) SODIUM (BEAKER) (test 142 meq/L 136-145 mvck=335) POTASSIUM (BEAKER) (test 3.6 meq/L 3.5-5.1 will=874) CHLORIDE (BEAKER) (test 106 meq/L 98-107 mbyy=068) CO2 (BEAKER) (test 27 meq/L 22-29 zpyt=677) BLOOD UREA NITROGEN 29 mg/dL 7-21 (BEAKER) (test emce=914) CREATININE (BEAKER) (test 2.70 mg/dL 0.57-1.25 lnqw=511) GLUCOSE RANDOM (BEAKER) 79 mg/dL 70-105 (test nlye=702) CALCIUM (BEAKER) (test 8.2 mg/dL 8.4-10.2 jxke=330) AST (SGOT) (BEAKER) (test 256 U/L 5-34 ljgm=550) ALT (SGPT) (BEAKER) (test 513 U/L 6-55 giep=469) EGFR (BEAKER) (test 20 mL/min/1.73 sq m ESTIMATED GFR IS NOT xwky=5030) ACCURATE CREATININE CLEARANCE IN PREDICTING GLOMERULAR FILTRATION RATE. ESTIMATED GFR IS NOT APPLICABLE FOR DIALYSIS PATIENTS. [id number] 06:11:00 Test Item Value Reference Range Comments MAGNESIUM (BEAKER) (test crju=079) 2.1 mg/dL 1.6-2.6 HEPATIC FUNCTION [id number] 06:11:00 Test Item Value Reference Range Comments TOTAL PROTEIN (BEAKER) (test hwpg=767) 5.1 gm/dL 6.0-8.3 ALBUMIN (BEAKER) (test pbaz=6388) 2.2 g/dL 3.5-5.0 BILIRUBIN TOTAL (BEAKER) (test wqqa=119) 1.1 mg/dL 0.2-1.2 BILIRUBIN DIRECT (BEAKER) (test rktj=906) 0.7 mg/dL 0.1-0.5 ALKALINE PHOSPHATASE (BEAKER) (test nrkz=063) 78 U/L 40-150 AST (SGOT) (BEAKER) (test asxt=103) 256 U/L 5-34 ALT (SGPT) (BEAKER) (test yihi=349) 513 U/L 6-55 [id number] 05:30:00 Test Item Value Reference Range Comments FIBRINOGEN LEVEL (BEAKER) (test yjom=574) 368 mg/dl 225-434 [id number] 05:30:00 Test Item Value Reference Range Comments PARTIAL THROMBOPLASTIN TIME (BEAKER) (test 42.2 seconds 22.5-36.0 qfnd=065) PROTHROMBIN [id number] 05:29:00 Test Item Value Reference Range Comments PROTIME (BEAKER) (test ryzd=439) 14.8 seconds 11.7-14.7 INR (BEAKER) (test ogse=563) 1.2 <=5.9 RECOMMENDED COUMADIN/WARFARIN INR THERAPY RANGESSTANDARD DOSE: 2.0 - 3.0 Includes: PROPHYLAXIS forvenous thrombosis, systemic embolization; TREATMENT for venous thrombosis and/or pulmonary embolus.HIGH RISK: Target INR is 2.5-3.5 for patients with mechanical heart valves.POCT-GLUCOSE [id number] 21:09:00 Test Item Value Reference Range Comments POC-GLUCOSE METER (BEAKER) 178 mg/dL 70-110 TESTED AT [address] (test pera=4081) [place] [address] POCT-GLUCOSE [id number] 17:18:00 Test Item Value Reference Range Comments POC-GLUCOSE METER (BEAKER) 178 mg/dL 70-110 TESTED AT [address] (test rmvw=0596) [place] [address] POCT-GLUCOSE [id number] 13:48:00 Test Item Value Reference Range Comments POC-GLUCOSE METER (BEAKER) 150 mg/dL 70-110 TESTED AT [address] (test safy=4060) [place] [address] FACTOR 5 ACTIVITY (BLEEDING RISK)2017-01-06 10:04:00 Test Item Value Reference Range Comments FACTOR V ACTIVITY (BEAKER) (test cvji=648) 90.0 % 60.0-150.0 Effective 10/24/2013: Reference Range Change-Adult onlyNew: 60.0-150.0 Previous : 50.0-150.0CYTOMEGALOVIRUS ANTIBODY, [id number] 09:42:00 Test Item Value Reference Range Comments CYTOMEGALOVIRUS IGM ANTIBODY (BEAKER) (test Negative xqdb=886) HERPES VIRUS ANTIBODY, [id number] 08:59:00 Test Item Value Reference Range Comments HERPES VIRUS IGG (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 izhd=8710) CYTOMEGALOVIRUS ANTIBODY, [id number] 08:59:00 Test Item Value Reference Range Comments CYTOMEGALOVIRUS IGG ANTIBODY (BEAKER) (test Positive xlmi=066) EBV-VCA ANTIBODY, [id number] 08:59:00 Test Item Value Reference Range Comments JASE-WALL VCA IGG (BEAKER) (test prue=905) Positive EBV-VCA ANTIBODY, [id number] 08:59:00 Test Item Value Reference Range Comments JASE-WALL VCA IGM (BEAKER) (test cwxv=265) Negative POCT-GLUCOSE [id number] 07:59:00 Test Item Value Reference Range Comments POC-GLUCOSE METER (BEAKER) 81 mg/dL 70-110 TESTED AT [facility] [address] [facility] (test xlul=3381) [facility] [address] COMPREHENSIVE METABOLIC [id number] 06:23:00 Test Item Value Reference Range Comments TOTAL PROTEIN (BEAKER) 5.3 gm/dL 6.0-8.3 (test onus=726) ALBUMIN (BEAKER) (test 2.4 g/dL 3.5-5.0 tzsg=5786) ALKALINE PHOSPHATASE 85 U/L 40-150 (BEAKER) (test gcbq=328) BILIRUBIN TOTAL (BEAKER) 1.5 mg/dL 0.2-1.2 (test ayva=790) SODIUM (BEAKER) (test 142 meq/L 136-145 cfwk=269) POTASSIUM (BEAKER) (test 3.5 meq/L 3.5-5.1 qjrf=231) CHLORIDE (BEAKER) (test 103 meq/L 98-107 ucjd=758) CO2 (BEAKER) (test 27 meq/L 22-29 nibl=906) BLOOD UREA NITROGEN 30 mg/dL 7-21 (BEAKER) (test xxru=747) CREATININE (BEAKER) (test 3.00 mg/dL 0.57-1.25 umkh=835) GLUCOSE RANDOM (BEAKER) 99 mg/dL 70-105 (test btha=517) CALCIUM (BEAKER) (test 8.7 mg/dL 8.4-10.2 vmfe=811) AST (SGOT) (BEAKER) (test 364 U/L 5-34 plee=002) ALT (SGPT) (BEAKER) (test 779 U/L 6-55 gwdk=060) EGFR (BEAKER) (test 18 mL/min/1.73 sq m ESTIMATED GFR IS NOT xndm=8284) ACCURATE CREATININE CLEARANCE IN PREDICTING GLOMERULAR FILTRATION RATE. ESTIMATED GFR IS NOT APPLICABLE FOR DIALYSIS PATIENTS. [id number] 06:17:00 Test Item Value Reference Range Comments MAGNESIUM (BEAKER) (test sebs=758) 1.8 mg/dL 1.6-2.6 HEPATIC FUNCTION [id number] 06:17:00 Test Item Value Reference Range Comments TOTAL PROTEIN (BEAKER) (test qxog=692) 5.3 gm/dL 6.0-8.3 ALBUMIN (BEAKER) (test aopr=7311) 2.4 g/dL 3.5-5.0 BILIRUBIN TOTAL (BEAKER) (test pskt=634) 1.5 mg/dL 0.2-1.2 BILIRUBIN DIRECT (BEAKER) (test oujr=893) 1.0 mg/dL 0.1-0.5 ALKALINE PHOSPHATASE (BEAKER) (test pdap=857) 85 U/L 40-150 AST (SGOT) (BEAKER) (test ksty=058) 364 U/L 5-34 ALT (SGPT) (BEAKER) (test oshd=645) 779 U/L 6-55 [id number] 06:00:00 Test Item Value Reference Range Comments FIBRINOGEN LEVEL (BEAKER) (test rijn=944) 390 mg/dl 225-434 [id number] 06:00:00 Test Item Value Reference Range Comments PARTIAL THROMBOPLASTIN TIME (BEAKER) (test 40.2 seconds 22.5-36.0 jcma=446) PROTHROMBIN [id number] 05:59:00 Test Item Value Reference Range Comments PROTIME (BEAKER) (test dyja=041) 14.6 seconds 11.7-14.7 INR (BEAKER) (test xngg=451) 1.2 <=5.9 RECOMMENDED COUMADIN/WARFARIN INR THERAPY RANGESSTANDARD DOSE: 2.0 - 3.0 Includes: PROPHYLAXIS forvenous thrombosis, systemic embolization; TREATMENT for venous thrombosis and/or pulmonary embolus.HIGH RISK: Target INR is 2.5-3.5 for patients with mechanical heart valves.POCT-GLUCOSE [id number] 21:46:00 Test Item Value Reference Range Comments POC-GLUCOSE METER (BEAKER) 153 mg/dL 70-110 TESTED AT [address] (test zqrz=6122) [facility] [address] POCT-GLUCOSE [id number] 18:47:00 Test Item Value Reference Range Comments POC-GLUCOSE METER (BEAKER) 181 mg/dL 70-110 TESTED AT [address] (test bgwg=8430) [place] [address] POCT-GLUCOSE [id number] 12:40:00 Test Item Value Reference Range Comments POC-GLUCOSE METER (BEAKER) 178 mg/dL 70-110 TESTED AT [address] (test tuug=7839) [place] [address] POCT-GLUCOSE [id number] 07:51:00 Test Item Value Reference Range Comments POC-GLUCOSE METER (BEAKER) 166 mg/dL 70-110 TESTED AT [address] (test fveo=0495) [place] [address] COMPREHENSIVE METABOLIC [id number] 03:26:00 Test Item Value Reference Range Comments TOTAL PROTEIN (BEAKER) 5.2 gm/dL 6.0-8.3 (test jzku=068) ALBUMIN (BEAKER) (test 2.3 g/dL 3.5-5.0 egxl=3619) ALKALINE PHOSPHATASE 72 U/L 40-150 (BEAKER) (test romh=360) BILIRUBIN TOTAL (BEAKER) 2.0 mg/dL 0.2-1.2 (test tuib=558) SODIUM (BEAKER) (test 140 meq/L 136-145 tdpt=328) POTASSIUM (BEAKER) (test 3.3 meq/L 3.5-5.1 caeu=280) CHLORIDE (BEAKER) (test 99 meq/L 98-107 ebzi=214) CO2 (BEAKER) (test 29 meq/L 22-29 xlrw=354) BLOOD UREA NITROGEN 35 mg/dL 7-21 (BEAKER) (test svou=859) CREATININE (BEAKER) (test 3.44 mg/dL 0.57-1.25 xzul=946) GLUCOSE RANDOM (BEAKER) 151 mg/dL 70-105 (test zqnn=292) CALCIUM (BEAKER) (test 8.6 mg/dL 8.4-10.2 iicf=011) AST (SGOT) (BEAKER) (test 506 U/L 5-34 jybp=659) ALT (SGPT) (BEAKER) (test 1009 U/L 6-55 obcy=616) EGFR (BEAKER) (test 15 mL/min/1.73 sq m ESTIMATED GFR IS NOT bygd=9553) ACCURATE CREATININE CLEARANCE IN PREDICTING GLOMERULAR FILTRATION RATE. ESTIMATED GFR IS NOT APPLICABLE FOR DIALYSIS PATIENTS. [id number] 03:22:00 Test Item Value Reference Range Comments MAGNESIUM (BEAKER) (test gveh=686) 1.4 mg/dL 1.6-2.6 HEPATIC FUNCTION [id number] 03:22:00 Test Item Value Reference Range Comments TOTAL PROTEIN (BEAKER) (test jgik=033) 5.2 gm/dL 6.0-8.3 ALBUMIN (BEAKER) (test fbku=9500) 2.3 g/dL 3.5-5.0 BILIRUBIN TOTAL (BEAKER) (test uary=728) 2.0 mg/dL 0.2-1.2 BILIRUBIN DIRECT (BEAKER) (test uxyy=264) 1.3 mg/dL 0.1-0.5 ALKALINE PHOSPHATASE (BEAKER) (test chyy=581) 72 U/L 40-150 AST (SGOT) (BEAKER) (test zrhd=703) 506 U/L 5-34 ALT (SGPT) (BEAKER) (test xmqt=194) 1009 U/L 6-55 [id number] 03:12:00 Test Item Value Reference Range Comments AMMONIA (BEAKER) (test djgs=138) 29 mol/L 18-72 [id number] 03:10:00 Test Item Value Reference Range Comments PARTIAL THROMBOPLASTIN TIME (BEAKER) (test 42.3 seconds 22.5-36.0 nkfo=122) PROTHROMBIN [id number] 03:09:00 Test Item Value Reference Range Comments PROTIME (BEAKER) (test smzi=908) 16.4 seconds 11.7-14.7 INR (BEAKER) (test bbfh=322) 1.3 <=5.9 RECOMMENDED COUMADIN/WARFARIN INR THERAPY RANGESSTANDARD DOSE: 2.0 - 3.0 Includes: PROPHYLAXIS forvenous thrombosis, systemic embolization; TREATMENT for venous thrombosis and/or pulmonary embolus.HIGH RISK: Target INR is 2.5-3.5 for patients with mechanical heart valves.[id number] 03:09:00 Test Item Value Reference Range Comments FIBRINOGEN LEVEL (BEAKER) (test ymme=322) 413 mg/dl 225-434 CBC W/PLT COUNT & AUTO [id number] 03:09:00 Test Item Value Reference Range Comments WHITE BLOOD CELL COUNT (BEAKER) (test lsly=276) 2.9 K/ L 4.0-10.0 RED BLOOD CELL COUNT (BEAKER) (test lecv=518) 3.10 M/ L 4.00-5.00 HEMOGLOBIN (BEAKER) (test xirj=359) 9.5 GM/DL 12.0-15.0 HEMATOCRIT (BEAKER) (test poxn=746) 29.2 % 36.0-45.0 MEAN CORPUSCULAR VOLUME (BEAKER) (test jrbt=445) 94.4 fL 82.0-99.0 MEAN CORPUSCULAR HEMOGLOBIN (BEAKER) (test 30.8 pg 27.0-33.0 sieo=351) MEAN CORPUSCULAR HEMOGLOBIN CONC (BEAKER) (test 32.6 GM/DL 32.0-36.0 cdow=175) RED CELL DISTRIBUTION WIDTH (BEAKER) (test 15.2 % 10.3-14.2 nezn=800) PLATELET COUNT (BEAKER) (test dhlp=975) 118 K/CU MM 150-430 MEAN PLATELET VOLUME (BEAKER) (test oovz=714) 9.2 fL 6.5-10.5 NUCLEATED RED BLOOD CELLS (BEAKER) (test 0 /100 WBC 0-0 gbiu=742) NEUTROPHILS RELATIVE PERCENT (BEAKER) (test 59 % bqou=087) LYMPHOCYTES RELATIVE PERCENT (BEAKER) (test 27 % lbaw=842) MONOCYTES RELATIVE PERCENT (BEAKER) (test 10 % uytz=216) EOSINOPHILS RELATIVE PERCENT (BEAKER) (test 4 % ialx=444) BASOPHILS RELATIVE PERCENT (BEAKER) (test 1 % umrt=771) NEUTROPHILS ABSOLUTE COUNT (BEAKER) (test 1.71 K/ L 1.80-8.00 dovv=819) LYMPHOCYTES ABSOLUTE COUNT (BEAKER) (test 0.78 K/ L 1.48-4.50 spid=644) MONOCYTES ABSOLUTE COUNT (BEAKER) (test 0.29 K/ L 0.00-1.30 lsfz=295) EOSINOPHILS ABSOLUTE COUNT (BEAKER) (test 0.11 K/ L 0.00-0.50 wobq=504) BASOPHILS ABSOLUTE COUNT (BEAKER) (test 0.02 K/ L 0.00-0.20 sxfz=382) 0.00POCT-GLUCOSE [id number] 22:33:00 Test Item Value Reference Range Comments POC-GLUCOSE METER (BEAKER) 230 mg/dL 70-110 TESTED AT [address] (test wmvz=4996) [place] [address] POCT-GLUCOSE [id number] 18:17:00 Test Item Value Reference Range Comments POC-GLUCOSE METER (BEAKER) 222 mg/dL 70-110 TESTED AT [address] (test jazy=7482) [place] [address] COMPREHENSIVE METABOLIC [id number] 16:59:00 Test Item Value Reference Range Comments TOTAL PROTEIN (BEAKER) 4.9 gm/dL 6.0-8.3 (test bxom=946) ALBUMIN (BEAKER) (test 2.2 g/dL 3.5-5.0 apqf=8545) ALKALINE PHOSPHATASE 71 U/L 40-150 (BEAKER) (test bkav=144) BILIRUBIN TOTAL (BEAKER) 2.2 mg/dL 0.2-1.2 (test zgxh=655) SODIUM (BEAKER) (test 140 meq/L 136-145 ikvb=225) POTASSIUM (BEAKER) (test 3.3 meq/L 3.5-5.1 mjhe=778) CHLORIDE (BEAKER) (test 99 meq/L 98-107 bjfl=971) CO2 (BEAKER) (test 28 meq/L 22-29 opax=255) BLOOD UREA NITROGEN 36 mg/dL 7-21 (BEAKER) (test qpij=002) CREATININE (BEAKER) (test 3.57 mg/dL 0.57-1.25 pqif=806) GLUCOSE RANDOM (BEAKER) 199 mg/dL 70-105 (test zokr=138) CALCIUM (BEAKER) (test 8.5 mg/dL 8.4-10.2 kzcy=743) AST (SGOT) (BEAKER) (test 640 U/L 5-34 vqmi=341) ALT (SGPT) (BEAKER) (test 1071 U/L 6-55 fgmr=987) EGFR (BEAKER) (test 15 mL/min/1.73 sq m ESTIMATED GFR IS NOT mwxb=6889) ACCURATE CREATININE CLEARANCE IN PREDICTING GLOMERULAR FILTRATION RATE. ESTIMATED GFR IS NOT APPLICABLE FOR DIALYSIS PATIENTS. PERIPHERAL BLOOD SMEAR - PATHOLOGIST [id number] 15:30:00 Test Item Value Reference Range Comments RBC MORPHOLOGY (BEAKER) (test Polychromasia mbze=5373) RBC MORPHOLOGY (BEAKER) (test Anisocytosis rqku=52011) PERIPHERAL SMR REVIEW Cell counts confirmed (BEAKER) (test arfx=4084) [id number] Josefina Lara M.D. (BEAKER) (test tdqs=7017) (electronic signature) PROTHROMBIN [id number] 15:12:00 Test Item Value Reference Range Comments PROTIME (BEAKER) (test ahfv=662) 16.6 seconds 11.7-14.7 INR (BEAKER) (test hfas=069) 1.4 <=5.9 RECOMMENDED COUMADIN/WARFARIN INR THERAPY RANGESSTANDARD DOSE: 2.0 - 3.0 Includes: PROPHYLAXIS forvenous thrombosis, systemic embolization; TREATMENT for venous thrombosis and/or pulmonary embolus.HIGH RISK: Target INR is 2.5-3.5 for patients with mechanical heart valves.ANTI-NUCLEAR ANTIBODY (IVETTE)2017-01-04 14:32:00 Test Item Value Reference Range Comments ANTI-NUCLEAR ANTIBODY (IVETTE) (BEAKER) (test Negative Negative jgwp=394) POCT-GLUCOSE [id number] 12:47:00 Test Item Value Reference Range Comments POC-GLUCOSE METER (BEAKER) 212 mg/dL 70-110 TESTED AT [facility] [address] [facility] (test kyhe=6400) [facility] [address] [id number] 12:34:00 Test Item Value Reference Range Comments RPR SCREEN ([employer]) (test swiw=243) Nonreactive Nonreactive CLOSTRIDIUM DIFFICILE TOXIN [id number] 10:12:00 Test Item Value Reference Range Comments CLOSTRIDIUM DIFFICILE TOXIN, PCR ([employer]) (test Not Detected Not Detected wqiy=6224) This qualitative real-time polymerase chain reaction assay [...] Value Reference Range Comments FACTOR V ACTIVITY ([employer]) (test bcke=273) 86.0 % 60.0-150.0 Effective 10/24/2013: Reference Range Change-Adult onlyNew: 60.0-150.0 Previous : 50.0-150.0FACTOR 5 ACTIVITY (BLEEDING RISK)2017-01-04 09:13:00 Test Item Value Reference Range Comments FACTOR V ACTIVITY ([employer]) (test iyaj=369) 56.0 % 60.0-150.0 Effective 10/24/2013: Reference Range Change-Adult onlyNew: 60.0-150.0 Previous : 50.0-150.0POCT-GLUCOSE [id number] 06:40:00 Test Item Value Reference Range Comments POC-GLUCOSE METER ([employer]) 167 mg/dL 70-110 TESTED AT [facility] [address] [facility] (test nvlh=2416) [facility] [address] COMPREHENSIVE METABOLIC [id number] 04:08:00 Test Item Value Reference Range Comments TOTAL PROTEIN ([employer]) 4.7 gm/dL 6.0-8.3 (test acwd=646) ALBUMIN (BEAKER) (test 2.1 g/dL 3.5-5.0 elco=4719) ALKALINE PHOSPHATASE 71 U/L 40-150 (BEAKER) (test lzma=674) BILIRUBIN TOTAL (BEAKER) 2.6 mg/dL 0.2-1.2 (test euwf=552) SODIUM (BEAKER) (test 140 meq/L 136-145 pvln=077) POTASSIUM (BEAKER) (test 2.8 meq/L 3.5-5.1 ebxv=576) CHLORIDE (BEAKER) (test 95 meq/L 98-107 qigr=291) CO2 (BEAKER) (test 31 meq/L 22-29 nfex=860) BLOOD UREA NITROGEN 39 mg/dL 7-21 (BEAKER) (test netm=920) CREATININE (BEAKER) (test 4.10 mg/dL 0.57-1.25 rtky=153) GLUCOSE RANDOM (BEAKER) 155 mg/dL 70-105 (test copa=721) CALCIUM (BEAKER) (test 8.2 mg/dL 8.4-10.2 vrgf=366) AST (SGOT) (BEAKER) (test 846 U/L 5-34 oprn=091) ALT (SGPT) (BEAKER) (test 1091 U/L 6-55 rylo=255) EGFR (BEAKER) (test mL/min/1.73 sq m INSUFFICIENT CLINICAL DATA tcpd=6125) TO CALCULATE ESTIMATED GFR. Specimen slightly ictericHEPATIC FUNCTION [id number] 04:06:00 Test Item Value Reference Range Comments TOTAL PROTEIN (BEAKER) (test xfkq=302) 4.7 gm/dL 6.0-8.3 ALBUMIN (BEAKER) (test wpny=7874) 2.1 g/dL 3.5-5.0 BILIRUBIN TOTAL (BEAKER) (test majv=022) 2.6 mg/dL 0.2-1.2 BILIRUBIN DIRECT (BEAKER) (test gxfn=167) 1.8 mg/dL 0.1-0.5 ALKALINE PHOSPHATASE (BEAKER) (test huay=686) 71 U/L 40-150 AST (SGOT) (BEAKER) (test dojf=567) 846 U/L 5-34 ALT (SGPT) (BEAKER) (test szyp=911) 1091 U/L 6-55 Specimen slightly [id number] 04:01:00 Test Item Value Reference Range Comments FIBRINOGEN LEVEL (BEAKER) (test aebw=313) 379 mg/dl 225-434 [id number] 04:01:00 Test Item Value Reference Range Comments PARTIAL THROMBOPLASTIN TIME (BEAKER) (test 40.7 seconds 22.5-36.0 nuik=242) PROTHROMBIN [id number] 04:00:00 Test Item Value Reference Range Comments PROTIME (BEAKER) (test wqbo=436) 18.7 seconds 11.7-14.7 INR (BEAKER) (test vuyi=368) 1.6 <=5.9 RECOMMENDED COUMADIN/WARFARIN INR THERAPY RANGESSTANDARD DOSE: 2.0 - 3.0 Includes: PROPHYLAXIS forvenous thrombosis, systemic embolization; TREATMENT for venous thrombosis and/or pulmonary embolus.HIGH RISK: Target INR is 2.5-3.5 for patients with mechanical heart valves.CBC W/PLT COUNT & AUTO [id number] 03:56:00 Test Item Value Reference Range Comments WHITE BLOOD CELL COUNT (BEAKER) (test hhif=038) 3.1 K/ L 4.0-10.0 RED BLOOD CELL COUNT (BEAKER) (test xirs=408) 2.85 M/ L 4.00-5.00 HEMOGLOBIN (BEAKER) (test iude=275) 8.8 GM/DL 12.0-15.0 HEMATOCRIT (BEAKER) (test cjtr=015) 26.6 % 36.0-45.0 MEAN CORPUSCULAR VOLUME (BEAKER) (test hojg=813) 93.4 fL 82.0-99.0 MEAN CORPUSCULAR HEMOGLOBIN (BEAKER) (test 30.9 pg 27.0-33.0 euaa=385) MEAN CORPUSCULAR HEMOGLOBIN CONC (BEAKER) (test 33.0 GM/DL 32.0-36.0 auvn=270) RED CELL DISTRIBUTION WIDTH (BEAKER) (test 14.9 % 10.3-14.2 axbp=903) PLATELET COUNT (BEAKER) (test trxo=773) 98 K/CU MM 150-430 MEAN PLATELET VOLUME (BEAKER) (test jshy=778) 9.1 fL 6.5-10.5 NUCLEATED RED BLOOD CELLS (BEAKER) (test 0 /100 WBC 0-0 iqev=064) NEUTROPHILS RELATIVE PERCENT (BEAKER) (test 55 % jjwl=811) LYMPHOCYTES RELATIVE PERCENT (BEAKER) (test 27 % qfqg=421) MONOCYTES RELATIVE PERCENT (BEAKER) (test 12 % sdun=872) EOSINOPHILS RELATIVE PERCENT (BEAKER) (test 5 % ufqh=485) BASOPHILS RELATIVE PERCENT (BEAKER) (test 1 % jisf=441) NEUTROPHILS ABSOLUTE COUNT (BEAKER) (test 1.71 K/ L 1.80-8.00 yzcb=815) LYMPHOCYTES ABSOLUTE COUNT (BEAKER) (test 0.83 K/ L 1.48-4.50 eslm=056) MONOCYTES ABSOLUTE COUNT (BEAKER) (test txbq=157) 0.38 K/ L 0.00-1.30 EOSINOPHILS ABSOLUTE COUNT (BEAKER) (test 0.14 K/ L 0.00-0.50 idgg=558) BASOPHILS ABSOLUTE COUNT (BEAKER) (test urru=039) 0.02 K/ L 0.00-0.20 0.00POCT-GLUCOSE [id number] 00:19:00 Test Item Value Reference Range Comments POC-GLUCOSE METER (BEAKER) 159 mg/dL 70-110 TESTED AT [address] (test tnyy=5829) [place] [id number] POCT-GLUCOSE [id number] 18:56:00 Test Item Value Reference Range Comments POC-GLUCOSE METER (BEAKER) 192 mg/dL 70-110 TESTED AT [address] (test izat=6265) [place] [id number] COMPREHENSIVE METABOLIC [id number] 16:55:00 Test Item Value Reference Range Comments TOTAL PROTEIN (BEAKER) 4.5 gm/dL 6.0-8.3 (test qoap=807) ALBUMIN (BEAKER) (test 2.0 g/dL 3.5-5.0 msqf=1694) ALKALINE PHOSPHATASE 74 U/L 40-150 (BEAKER) (test fgnj=901) BILIRUBIN TOTAL (BEAKER) 2.9 mg/dL 0.2-1.2 (test hqhy=274) SODIUM (BEAKER) (test 142 meq/L 136-145 polu=982) POTASSIUM (BEAKER) (test 3.0 meq/L 3.5-5.1 slce=236) CHLORIDE (BEAKER) (test 95 meq/L 98-107 kffw=655) CO2 (BEAKER) (test 33 meq/L 22-29 ezkr=543) BLOOD UREA NITROGEN 45 mg/dL 7-21 (BEAKER) (test skty=566) CREATININE (BEAKER) (test 4.87 mg/dL 0.57-1.25 rfju=608) GLUCOSE RANDOM (BEAKER) 177 mg/dL 70-105 (test eawg=595) CALCIUM (BEAKER) (test 8.4 mg/dL 8.4-10.2 gayd=088) AST (SGOT) (BEAKER) (test 1283 U/L 5-34 edfh=471) ALT (SGPT) (BEAKER) (test 1314 U/L 6-55 ogan=064) EGFR (BEAKER) (test mL/min/1.73 sq m INSUFFICIENT CLINICAL DATA ymkw=0430) TO CALCULATE ESTIMATED GFR. Specimen slightly ictericPROTHROMBIN [id number] 16:37:00 Test Item Value Reference Range Comments PROTIME (BEAKER) (test qthd=378) 20.9 seconds 11.7-14.7 INR (BEAKER) (test yode=327) 1.8 <=5.9 RECOMMENDED COUMADIN/WARFARIN INR THERAPY RANGESSTANDARD DOSE: 2.0 - 3.0 Includes: PROPHYLAXIS forvenous thrombosis, systemic embolization; TREATMENT for venous thrombosis and/or pulmonary embolus.HIGH RISK: Target INR is 2.5-3.5 for patients with mechanical heart valves.HEPATITIS B SURFACE [id number] 14:05:00 Test Item Value Reference Range Comments HEPATITIS B SURFACE ANTIBODY (BEAKER) (test < mIU/mL <8.0 udaz=728) HEPATITIS B CORE ANTIBODY, [id number] 13:43:00 Test Item Value Reference Range Comments HEPATITIS B CORE TOTAL ANTIBODY (BEAKER) (test Nonreactive Nonreactive dwgg=511) BLOOD GAS, [id number] 13:35:00 Test Item Value Reference Range Comments PH ARTERIAL (BEAKER) (test qofv=460) 7.44 7.35-7.45 PCO2 ARTERIAL (BEAKER) (test qbin=713) 55 mmHg 35-45 PO2 ARTERIAL (BEAKER) (test yfgm=388) 99 mmHg 80-90 O2 SATURATION ARTERIAL (BEAKER) (test dsqx=263) 97.4 % 96.0-97.0 HCO3 ARTERIAL (BEAKER) (test ecgo=374) 36 mmol/L 21-29 BASE EXCESS ARTERIAL (BEAKER) (test tfmc=628) 10.3 mmol/L -2.0-3.0 PATIENT TEMPERATURE (BEAKER) (test aykf=4451) 37.5 C FIO2 (BEAKER) (test zljg=6246) 28.0 % URINALYSIS W/ [id number] 13:16:00 Test Item Value Reference Range Comments COLOR (BEAKER) (test jjda=310) Yellow CLARITY (BEAKER) (test zjyf=890) Clear SPECIFIC GRAVITY UA (BEAKER) (test sylj=503) 1.013 1.001-1.035 PH UA (BEAKER) (test jeay=494) 6.0 5.0-8.0 PROTEIN UA (BEAKER) (test iqwj=744) 300 mg/dL Negative GLUCOSE UA (BEAKER) (test vgxc=645) 30 mg/dL Negative KETONES UA (BEAKER) (test yfeo=990) Trace Negative BILIRUBIN UA (BEAKER) (test tvjp=696) Positive Negative BLOOD UA (BEAKER) (test wdid=210) Moderate Negative NITRITE UA (BEAKER) (test ootu=373) Negative Negative LEUKOCYTE ESTERASE UA (BEAKER) (test agov=411) Moderate Negative UROBILINOGEN UA (BEAKER) (test mlxj=454) 2.0 mg/dL 0.2-1.0 RBC UA (BEAKER) (test jqrq=954) 2 /HPF WBC UA (BEAKER) (test rkok=208) 41 /HPF HYALINE CASTS (BEAKER) (test auup=832) 10 /LPF AMORPHOUS CRYSTALS (BEAKER) (test uzkp=0737) Rare SOURCE(BEAKER) (test epeb=4241) Urine, [place] VITAMIN D, [id number] 13:14:00 Test Item Value Reference Range Comments VITAMIN D 25-OH (BEAKER) (test ajno=5368) < ng/mL 13.0-47.8 ALPHA FETOPROTEIN (AFP), TUMOR [id number] 13:06:00 Test Item Value Reference Range Comments ALPHA-FETOPROTEIN (BEAKER) (test dzph=5310) < ng/mL <10.0 Effective 05/08/2014: Reference Range ChangeNew: <10.0 Previous: 0.0- 8.0HEMOGLOBIN [id number] 13:05:00 Test Item Value Reference Range Comments HEMOGLOBIN A1C (BEAKER) (test zzoi=511) 7.6 % 4.3-6.1 CARCINOEMBRYONIC ANTIGEN (CEA)2017-01-03 12:59:00 Test Item Value Reference Range Comments CARCINOEMBRYONIC ANTIGEN (BEAKER) (test lrih=691) 2.0 ng/mL 0.0-5.0 [id number] 12:59:00 Test Item Value Reference Range Comments FERRITIN (BEAKER) (test gnjy=152) 1841 ng/mL 5-275 Effective 05/08/2014: Reference Range ChangeNew: Male 5-275 Previous: Male 22-322 Female 5-275 Female [id number] 12:58:00 Test Item Value Reference Range Comments T4 TOTAL (BEAKER) (test eqrt=562) 4.5 ug/dL 4.9-11.7 [id number] 12:58:00 Test Item Value Reference Range Comments THYROID STIMULATING HORMONE (BEAKER) (test 1.79 uIU/mL 0.35-4.94 wznu=443) [id number] 12:58:00 Test Item Value Reference Range Comments T3 TOTAL (BEAKER) (test pmdm=776) 34 ng/dL 48-159 Effective 05/08/2014: Reference Range ChangeNew: 48-159 Previous: 60- 181CALCIUM, [id number] 12:47:00 Test Item Value Reference Range Comments CALCIUM IONIZED (BEAKER) (test uwsx=674) 1.05 mmol/L 1.12-1.27 PH, BLOOD (BEAKER) (test trdp=8889) 7.43 [id number] 12:42:00 Test Item Value Reference Range Comments TRANSFERRIN (BEAKER) (test tcpt=736) 128 mg/dL 174-382 Specimen slightly ictericIRON, TIBC, % SAT. (WITHOUT FERRITIN)2017-01-03 12:42: 00 Test Item Value Reference Range Comments IRON (BEAKER) (test xupf=666) 59 ug/dL 40-160 TOTAL IRON BINDING CAPACITY (BEAKER) (test 160 ug/dL 250-450 vkth=094) IRON % SATURATION (2) (BEAKER) (test drjn=0681) 37 % 20-55 URIC [id number] 12:40:00 Test Item Value Reference Range Comments URIC ACID (BEAKER) (test htzc=834) 16.0 mg/dL 2.6-7.2 Specimen slightly ictericLIPID [id number] 12:40:00 Test Item Value Reference Range Comments TRIGLYCERIDES (BEAKER) (test tpsy=185) 134 mg/dL CHOLESTEROL (BEAKER) (test xfnp=501) 120 mg/dL HDL CHOLESTEROL (BEAKER) (test uhcr=189) 7 mg/dL LDL CHOLESTEROL CALCULATED (BEAKER) (test 86 mg/dL wqeh=864) Triglyceride Reference Range: Low Risk <150 Borderline 150- 199 High Risk 200-499 Very High Risk >=500Cholesterol Reference Range: Low Risk <200 Borderline 200-239 High Risk > 240HDL Cholesterol Reference Range: Low Risk >=60 High Risk <40LDL Cholesterol Reference Range: Optimal <100 Near Optimal 100-129 Borderline 130-159 High 160-189 Very High >=190 Specimen slightly ictericBILIRUBIN, [id number] 12:40:00 Test Item Value Reference Range Comments BILIRUBIN DIRECT (BEAKER) (test hitn=809) 2.4 mg/dL 0.1-0.5 GAMMA GLUTAMYL TRANSFERASE (GGT)2017-01-03 12:40:00 Test Item Value Reference Range Comments GAMMA GLUTAMYL TRANSFERASE (BEAKER) (test mvsv=082) 53 U/L 9-64 Specimen slightly [id number] 12:39:00 Test Item Value Reference Range Comments ETHANOL (BEAKER) (test lwek=717) < mg/dL <=10 SCREEN, [id number] 12:36:00 Test Item Value Reference Range Comments TEST URINE (BEAKER) (test sxmv=127) Negative POCT-GLUCOSE [id number] 12:34:00 Test Item Value Reference Range Comments POC-GLUCOSE METER (BEAKER) 189 mg/dL 70-110 TESTED AT [address] (test ufvq=3716) [facility] [address] HIV-1 ANTIGEN WITH HIV-1/2 [id number] 11:58:00 Test Item Value Reference Range Comments HIV-1 ANTIGEN WITH HIV 1\T\2 ANTIBODY (2) Nonreactive Nonreactive (BEAKER) (test mrjd=7112) TROPONIN [id number] 09:44:00 Test Item Value Reference Range Comments TROPONIN I (BEAKER) (test achl=784) 0.34 ng/mL 0.00-0.03 Effective 05/08/2014: Reference Range [...] and persistent tachyarrhythmia.CREATINE KINASE (CK), TOTAL AND [id number] 09:43:00 Test Item Value Reference Range Comments CREATINE KINASE TOTAL (BEAKER) (test qppm=906) 301 U/L 29-200 CREATINE KINASE-MB (BEAKER) (test hfxc=847) 5.6 ng/mL 0.0-6.6 CREATINE KINASE-MB INDEX (BEAKER) (test afkq=536) 1.9 % Effective 05/08/2014: CK-MB Reference Range ChangeNew: 0.0-6.6 Previous: 0.0- 4.9CK-MB Reference Range:<6.7 Normal6.7-10.0 Borderline>10.0 AbnormalACETAMINOPHEN [id number] 08:31:00 Test Item Value Reference Range Comments ACETAMINOPHEN LEVEL (BEAKER) (test lxqs=812) < ug/mL 10.0-30.0 TROPONIN [id number] 05:53:00 Test Item Value Reference Range Comments TROPONIN I (BEAKER) (test qeft=299) 0.33 ng/mL 0.00-0.03 Effective 05/08/2014: Reference Range [...] acute neurological disease, and persistent tachyarrhythmia.BASIC METABOLIC [id number] 05:53:00 Test Item Value Reference Range Comments SODIUM (BEAKER) (test 144 meq/L 136-145 yyph=037) POTASSIUM (BEAKER) (test 2.8 meq/L 3.5-5.1 wkar=386) CHLORIDE (BEAKER) (test 95 meq/L 98-107 cnem=884) CO2 (BEAKER) (test 35 meq/L 22-29 jrwm=841) BLOOD UREA NITROGEN 49 mg/dL 7-21 (BEAKER) (test inud=980) CREATININE (BEAKER) (test 5.61 mg/dL 0.57-1.25 cwne=486) GLUCOSE RANDOM (BEAKER) 138 mg/dL 70-105 (test imlb=460) CALCIUM (BEAKER) (test 8.2 mg/dL 8.4-10.2 lkqz=022) EGFR (BEAKER) (test mL/min/1.73 sq m INSUFFICIENT CLINICAL DATA nfis=9682) TO CALCULATE ESTIMATED GFR. Specimen slightly [id number] 05:52:00 Test Item Value Reference Range Comments PHOSPHORUS (BEAKER) (test ynpj=277) 5.7 mg/dL 2.3-4.7 HEPATIC FUNCTION [id number] 05:52:00 Test Item Value Reference Range Comments TOTAL PROTEIN (BEAKER) (test srat=932) 5.2 gm/dL 6.0-8.3 ALBUMIN (BEAKER) (test kdmz=2743) 2.3 g/dL 3.5-5.0 BILIRUBIN TOTAL (BEAKER) (test mqvm=455) 3.5 mg/dL 0.2-1.2 BILIRUBIN DIRECT (BEAKER) (test nqzn=635) 2.6 mg/dL 0.1-0.5 ALKALINE PHOSPHATASE (BEAKER) (test lvno=573) 81 U/L 40-150 AST (SGOT) (BEAKER) (test adfk=175) 2190 U/L 5-34 ALT (SGPT) (BEAKER) (test jufy=555) 1782 U/L 6-55 Specimen slightly ictericCREATINE KINASE (CK), TOTAL AND [id number] 05:52:00 Test Item Value Reference Range Comments CREATINE KINASE TOTAL (BEAKER) (test khul=003) 341 U/L 29-200 CREATINE KINASE-MB (BEAKER) (test txwy=440) 5.4 ng/mL 0.0-6.6 CREATINE KINASE-MB INDEX (BEAKER) (test kmud=862) 1.6 % Effective 05/08/2014: CK-MB Reference Range ChangeNew: 0.0-6.6 Previous: 0.0- 4.9CK-MB Reference Range:<6.7 Normal6.7-10.0 Borderline>10.0 AbnormalCBC W/PLT COUNT & AUTO [id number] 05:48:00 Test Item Value Reference Range Comments WHITE BLOOD CELL COUNT (BEAKER) (test twgl=504) 4.1 K/ L 4.0-10.0 RED BLOOD CELL COUNT (BEAKER) (test xyzg=057) 3.29 M/ L 4.00-5.00 HEMOGLOBIN (BEAKER) (test wooe=194) 10.0 GM/DL 12.0-15.0 HEMATOCRIT (BEAKER) (test cveb=632) 30.7 % 36.0-45.0 MEAN CORPUSCULAR VOLUME (BEAKER) (test kzys=121) 93.5 fL 82.0-99.0 MEAN CORPUSCULAR HEMOGLOBIN (BEAKER) (test 30.5 pg 27.0-33.0 fvyq=795) MEAN CORPUSCULAR HEMOGLOBIN CONC (BEAKER) (test 32.6 GM/DL 32.0-36.0 pwrj=671) RED CELL DISTRIBUTION WIDTH (BEAKER) (test 15.0 % 10.3-14.2 rqpo=383) PLATELET COUNT (BEAKER) (test cvnv=020) 106 K/CU MM 150-430 MEAN PLATELET VOLUME (BEAKER) (test aolr=149) 9.6 fL 6.5-10.5 NUCLEATED RED BLOOD CELLS (BEAKER) (test 0 /100 WBC 0-0 cpiu=072) NEUTROPHILS RELATIVE PERCENT (BEAKER) (test 66 % gomw=176) LYMPHOCYTES RELATIVE PERCENT (BEAKER) (test 24 % eecb=002) MONOCYTES RELATIVE PERCENT (BEAKER) (test 6 % qnnb=928) EOSINOPHILS RELATIVE PERCENT (BEAKER) (test 3 % qmsx=298) BASOPHILS RELATIVE PERCENT (BEAKER) (test 0 % teru=383) NEUTROPHILS ABSOLUTE COUNT (BEAKER) (test 2.74 K/ L 1.80-8.00 kxon=085) LYMPHOCYTES ABSOLUTE COUNT (BEAKER) (test 1.00 K/ L 1.48-4.50 obbt=399) MONOCYTES ABSOLUTE COUNT (BEAKER) (test 0.26 K/ L 0.00-1.30 tlqr=327) EOSINOPHILS ABSOLUTE COUNT (BEAKER) (test 0.13 K/ L 0.00-0.50 ivjh=037) BASOPHILS ABSOLUTE COUNT (BEAKER) (test 0.01 K/ L 0.00-0.20 fixi=674) [id number] 05:09:00 Test Item Value Reference Range Comments FIBRINOGEN LEVEL (BEAKER) (test ycke=061) 427 mg/dl 225-434 [id number] 05:09:00 Test Item Value Reference Range Comments PARTIAL THROMBOPLASTIN TIME (BEAKER) (test 36.2 seconds 22.5-36.0 ejlm=470) PROTHROMBIN TIME/[id number] 05:08:00 Test Item Value Reference Range Comments PROTIME (BEAKER) (test twqv=475) 22.8 seconds 11.7-14.7 INR (BEAKER) (test xats=109) 2.0 <=5.9 RECOMMENDED COUMADIN/WARFARIN INR THERAPY RANGESSTANDARD DOSE: 2.0 - 3.0 Includes: PROPHYLAXIS forvenous thrombosis, systemic embolization; TREATMENT for venous thrombosis and/or pulmonary embolus.HIGH RISK: Target INR is 2.5-3.5 for patients with mechanical heart valves.HEPATITIS PANEL, [id number] 03:40 :00 Test Item Value Reference Range Comments HEPATITIS A IGM ANTIBODY (BEAKER) (test Nonreactive Nonreactive lacg=731) HEPATITIS B CORE IGM ANTIBODY (BEAKER) (test Nonreactive Nonreactive xxgm=300) HEPATITIS C ANTIBODY (BEAKER) (test mlec=743) Nonreactive Nonreactive HEPATITIS B SURFACE ANTIGEN (2) (BEAKER) (test Nonreactive Nonreactive eayz=7322) CREATININE, RANDOM [id number] 03:18:00 Test Item Value Reference Range Comments CREATININE URINE (BEAKER) (test zezy=605) 118.7 mg/dL Reference Range: No NormalsSODIUM, RANDOM [id number] 03:18:00 Test Item Value Reference Range Comments SODIUM URINE (BEAKER) (test xlao=323) 60 meq/L Reference Range: No NormalsUREA NITROGEN, RANDOM [id number] 03:18:00 Test Item Value Reference Range Comments UREA NITROGEN URINE (BEAKER) (test vsqh=750) 303 mg/dL Reference Range: No [id number] 03:07:00 Test Item Value Reference Range Comments AMMONIA (BEAKER) (test ycxm=563) 48 mol/L 18-72 [id number] 02:57:00 Test Item Value Reference Range Comments D-DIMER QUANTITATIVE (BEAKER) (test zugn=942) 18.03 MG/L FEU <0.50 Intended Use: The [...] is within 95-100% range.URINALYSIS W/ REFLEX URINE [id number] 02:53:00 Test Item Value Reference Range Comments COLOR (BEAKER) (test nkpi=213) Yellow CLARITY (BEAKER) (test ljvq=482) Hazy SPECIFIC GRAVITY UA (BEAKER) (test ajox=316) 1.012 1.001-1.035 PH UA (BEAKER) (test mjje=561) 6.5 5.0-8.0 PROTEIN UA (BEAKER) (test vqfr=359) 300 mg/dL Negative GLUCOSE UA (BEAKER) (test fljk=473) Negative Negative KETONES UA (BEAKER) (test kgce=003) Negative Negative BILIRUBIN UA (BEAKER) (test ljtg=103) Positive Negative BLOOD UA (BEAKER) (test lblk=469) Moderate Negative NITRITE UA (BEAKER) (test obnz=341) Negative Negative LEUKOCYTE ESTERASE UA (BEAKER) (test srsq=572) Large Negative UROBILINOGEN UA (BEAKER) (test bzxw=820) 3.0 mg/dL 0.2-1.0 RBC UA (BEAKER) (test kouy=343) 4 /HPF WBC UA (BEAKER) (test jthd=730) > /HPF BACTERIA (BEAKER) (test hvoa=833) Occasional MUCUS (BEAKER) (test plsh=0971) Rare SQUAMOUS EPITHELIAL (BEAKER) (test mdcd=531) 19 /HPF HYALINE CASTS (BEAKER) (test ubhk=489) 13 /LPF SOURCE(BEAKER) (test nezl=6594) [id number] 02:49:00 Test Item Value Reference Range Comments PARTIAL THROMBOPLASTIN TIME (BEAKER) (test 39.4 seconds 22.5-36.0 zahx=492) PROTHROMBIN TIME/[id number] 02:48:00 Test Item Value Reference Range Comments PROTIME (BEAKER) (test gawk=094) 22.0 seconds 11.7-14.7 INR (BEAKER) (test nccs=441) 1.9 <=5.9 RECOMMENDED COUMADIN/WARFARIN INR THERAPY RANGESSTANDARD DOSE: 2.0 - 3.0 Includes: PROPHYLAXIS forvenous thrombosis, systemic embolization; TREATMENT for venous thrombosis and/or pulmonary embolus.HIGH RISK: Target INR is 2.5-3.5 for patients with mechanical heart valves.[id number] 02:48:00 Test Item Value Reference Range Comments FIBRINOGEN LEVEL (BEAKER) (test cnup=886) 421 mg/dl 225-434 BLOOD GAS, [id number] 02:43:00 Test Item Value Reference Range Comments PH VENOUS (BEAKER) (test jjyx=985) 7.46 7.32-7.42 PCO2 VENOUS (BEAKER) (test oapf=959) 53 mmHg 41-51 PO2 VENOUS (BEAKER) (test pmyl=858) 83 mmHg 25-40 O2 SATURATION VENOUS (BEAKER) (test acsa=647) 96.5 % 40.0-70.0 HCO3 VENOUS (BEAKER) (test iihj=847) 37 mmol/L 21-29 BASE EXCESS VENOUS (BEAKER) (test asax=414) 11.7 mmol/L -2.0-3.0 PATIENT TEMPERATURE (BEAKER) (test jkfk=9174) 37.0 C FIO2 (BEAKER) (test hvfb=6593) 21.0 % CBC W/PLT COUNT & AUTO [id number] 02:43:00 Test Item Value Reference Range Comments WHITE BLOOD CELL COUNT (BEAKER) (test qmdw=769) 4.4 K/ L 4.0-10.0 RED BLOOD CELL COUNT (BEAKER) (test ievt=670) 3.13 M/ L 4.00-5.00 HEMOGLOBIN (BEAKER) (test gqjt=189) 9.8 GM/DL 12.0-15.0 HEMATOCRIT (BEAKER) (test uwyf=155) 29.0 % 36.0-45.0 MEAN CORPUSCULAR VOLUME (BEAKER) (test ddpd=019) 92.9 fL 82.0-99.0 MEAN CORPUSCULAR HEMOGLOBIN (BEAKER) (test 31.3 pg 27.0-33.0 dhfy=882) MEAN CORPUSCULAR HEMOGLOBIN CONC (BEAKER) (test 33.6 GM/DL 32.0-36.0 zrab=873) RED CELL DISTRIBUTION WIDTH (BEAKER) (test 15.3 % 10.3-14.2 loho=621) PLATELET COUNT (BEAKER) (test fatl=525) 113 K/CU MM 150-430 MEAN PLATELET VOLUME (BEAKER) (test wtsy=454) 9.8 fL 6.5-10.5 NUCLEATED RED BLOOD CELLS (BEAKER) (test 0 /100 WBC 0-0 vdtz=207) NEUTROPHILS RELATIVE PERCENT (BEAKER) (test 61 % elaf=429) LYMPHOCYTES RELATIVE PERCENT (BEAKER) (test 23 % mcei=934) MONOCYTES RELATIVE PERCENT (BEAKER) (test 11 % ifof=037) EOSINOPHILS RELATIVE PERCENT (BEAKER) (test 4 % vcmo=745) BASOPHILS RELATIVE PERCENT (BEAKER) (test 1 % zcpl=741) NEUTROPHILS ABSOLUTE COUNT (BEAKER) (test 2.65 K/ L 1.80-8.00 nwxw=739) LYMPHOCYTES ABSOLUTE COUNT (BEAKER) (test 1.01 K/ L 1.48-4.50 fifj=990) MONOCYTES ABSOLUTE COUNT (BEAKER) (test 0.48 K/ L 0.00-1.30 kqsc=874) EOSINOPHILS ABSOLUTE COUNT (BEAKER) (test 0.19 K/ L 0.00-0.50 nosd=470) BASOPHILS ABSOLUTE COUNT (BEAKER) (test 0.05 K/ L 0.00-0.20 octo=822) 0.00LACTIC ACID, VENOUS, WHOLE [id number] 02:35:00 Test Item Value Reference Range Comments LACTATE BLOOD VENOUS (2) (BEAKER) (test 0.8 mmol/L 0.5-2.2 jqwe=7956) Effective 10/23/2015: Units/Reference Range ChangeNew: 0.5-2.2 mmol/L Previous: 5 -20 mg/dLSpecimen slightly icteric
--- OUTSIDE RECORDS SUMMARY | 2019-03-04 15:09 | XMS REPORT | Summary of Care ---
:1980 Author Organization [facility] Address [address] [place] [id number] Care Team Providers Name Role Phone Partha Abraham Primary Care Provider Jose Miguel Morin DO Plasma Specialist Reason for Referral (BOBBY) Status Reason Specialty Diagnoses / Referred By Referred To Procedures Contact Contact New Request Vascular Surgery Diagnoses Malfunction of arteriovenous dialysis fistula, subsequent encounter Carey Blair DUPLEX SCAN DIALYSIS ACCESS BY VASCULAR LAB MD Lima [address] [place] [phone] Reason for Visit Reason Comments Follow-up Other (Routine) Status Reason Specialty Diagnoses / Procedures Referred By Contact Referred To Contact Closed Urology Diagnoses Malfunction of arteriovenous dialysis fistula, initial encounter Lima Blair, Lima Blair, Procedures Discharge Follow-up: Specialty Provider LIMA BLAIR; 2 Weeks MD BURNS [address] [place] [phone] Encounter Details Date Type Department Care Team Description 01/13/[address] [facility] Vascular Lima Blair Malfunction of Surgery- Levi BURNS arteriovenous dialysis [address] [place] [address] fistula, subsequent Drive [place], [place] encounter (Primary Dx) [address] [address] [place], [place] [phone] [address] [phone] Allergies Active Allergy Reactions Severity Noted Date Comments Adhesive Tape-Silicones Rash, Swelling Medium 06/03/2017 Zolpidem Tartrate Other - See comments Medium 06/23/2012 Sleep walking Guaifenesin Other - See comments 01/03/2017 numbness Cephalexin Hives 01/18/2018 Lisinopril Other - See comments 03/31/2016 angioedema Nitrofurantoin Other - See comments 03/19/2017 Reports transient liver disease with nitrofurantoin Penicillins Anaphylaxis 06/16/2011 Prolex Other - See comments 12/31/2011 Ketorolac Tromethamine Swelling High 12/13/2016 throat documented as of this encounter (statuses as of 01/13/2019) Medications Medication Sig Dispensed Refills Start Date End Date Status divalproex ER Take 500 mg by 0 Active (DEPAKOTE ER) 500 mg mouth every 24 24 hr tablet (twenty-four) hours. Takes 500 mg am and 1000 mg in pm gabapentin (NEURONTIN) Take 100 mg by 0 Active 300 mg capsule mouth 2 (two) times daily. SERTraline (ZOLOFT) Take 2 tablets 90 tablet 3 10/28/2015 Active 100 mg tablet by mouth daily. hydralAZINE 25 mg Take 4 tablets 360 tablet 1 03/16/2017 Active tablet by mouth every 8 (eight) hours. doxazosin 4 mg tablet Take 4 mg by 0 Active mouth 2 (two) times daily. vitamin C with sia Take 2,000 mg by 0 Active hips (VITAMIN C) 1,000 mouth 2 (two) mg tablet times daily. furosemide (LASIX) 40 Take 40 mg by 0 Active mg tablet mouth daily. metoprolol tartrate 50 Take 50 mg by 0 Active mg tablet mouth daily. artificial Place 1 Drop in 15 mL 5 07/29/2017 Active tears,hypromellose, left eye 4 (ISOPTO TEARS) 0.5 % (four) times ophthalmic drops daily as needed for Dry eyes. albuterol 90 Inhale 2 Puffs 8.5 g 0 10/24/2017 Active mcg/actuation inhaler every 4 (four) hours as needed for Wheezing or Shortness of Breath. folic acid/vit B Take 800 mg by 0 Active complex and C mouth daily. (DIALYVITE 800 ORAL) HYDROcodone-acetaminop Take 1 tablet by 12 tablet 0 01/17/2018 Active hen 5-325 mg tablet mouth every 6 (six) hours as needed for Pain (scale 4-6) or Pain (scale 7-10). acetaminophen 325 mg Take 2 tablets 10 tablet 0 01/21/2018 01/21/2019 Active tablet by mouth every 6 (six) hours as needed for Pain (scale 4-6). sevelamer 800 mg Take 1 tablet by 90 tablet 0 01/21/2018 Active tablet mouth 3 (three) times daily with meals. diphenhydrAMINE 50 mg Take 1 tablet by 20 tablet 0 01/21/2018 Active tablet mouth every 6 (six) hours as needed for Allergies. ondansetron (ZOFRAN Take 1 tablet by 20 tablet 0 01/21/2018 Active ODT) 4 mg mouth every 8 disintegrating tablet (eight) hours as needed for Nausea and Vomiting (N/V). prednisoLONE acetate 1 drop right 10 mL 1 05/18/2018 Active (PRED FORTE) 1 % eyes 4 time/day ophthalmic suspension 1 week, then 3 drops time/day 1 week,then 2 time/day 1 week, then 1 time/day 1 week linagliptin Take by mouth. 0 Active (TRADJENTA) 5 mg tablet insulin detemir inject 45 Units 0 Active (LEVEMIR U-100 INSULIN under the skin SC) daily. spironolactone 50 mg Take 50 mg by 0 Active tablet mouth daily. BUPROPION HCL ORAL Take by mouth. 0 Active pravastatin sodium Take by mouth. 0 Active (PRAVASTATIN ORAL) mv-mn/iron/folic Take 1 capsule 0 Active acid/herb 190 (VITAMIN by mouth daily. 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 07/22/2017 Overview: Added automatically from request for surgery [id number] Neovascular glaucoma, left eye 07/08/2017 Increased intraocular pressure 07/08/2017 Fall 04/02/2017 Pneumonia 03/31/2017 Diabetes mellitus 03/25/2017 Overview: Added automatically from request for surgery [id number] Pseudotumor cerebri 03/15/2017 Peripheral neuropathy 01/03/2017 Obesity (BMI 30-39.9) 04/01/2016 Hyperosmolar non-ketotic state in patient with type 2 diabetes mellitus 2015 Hyperglycemia 03/31/2016 Diabetic ulcer of both feet associated with type 2 diabetes mellitus 2015 SANJUANA (acute kidney injury) 10/26/2015 Depression 10/26/2015 Bipolar 1 disorder 10/26/2015 Suicidal ideation 10/24/2015 Diabetes 1.5, 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 Hematuria, undiagnosed cause 08/06/2015 Cystitis with hematuria 05/07/2015 Essential hypertension, benign 05/03/2015 Family history of breast cancer in female 05/03/2015 Family history of ovarian cancer 05/03/2015 Galactorrhea 05/03/2015 History of tubal ligation 05/03/2015 Excessive or frequent menstruation 05/03/2015 Tobacco use disorder 05/03/2015 documented as of this encounter (statuses as of 01/13/2019) Resolved Problems Problem Noted Date Resolved Date Diabetes, type 1.5, uncontrolled, managed as type 2 04/29/2015 09/17/2015 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, 10/20/20122014 uncontrolled Overview: ICD10 Diagnosis Term Willow Machine Tender Utility documented as of this encounter (statuses as of 01/13/2019) Immunizations Name Administration Dates Next Due Influenza Virus Vaccine Quad IM 3+ YRS 06/22/2017, 04/02/2016, 10/28/2015 documented as of this encounter Social History Tobacco Use Types Packs/Day Years Used Date Former Smoker 0.3 Smokeless Tobacco: Never Used Comments: quit 4-1-19 Alcohol Use Drinks/Week oz/Week Comments No 0 Standard drinks or equivalent 0.0 Sex Assigned at Date Recorded Not on file Job Start Date Occupation Industry Not on file Not on file Not on file Travel History Travel Start Travel End No recent travel history available. documented as of this encounter Last Filed Vital Signs Vital Sign Reading Time Taken Comments Blood Pressure - - Pulse - - Temperature - - Respiratory Rate 18 01/13/2019 8:39 AM CDT Oxygen Saturation - - Inhaled Oxygen Concentration - - Weight 91.3 kg (201 lb 4.8 oz) 01/13/2019 8:39 AM CDT Height - - Body Mass Index 35.66 12/09/2018 1:55 PM CDT documented in this encounter Progress Notes Manda Christensen RN - 01/13/2019 8:30 AM CDTEsther Julia Zaldivar is a 38 year old female comes to clinic independent in ambulation for follow up.Pt comes alone . Pt in NAD w/ pain reported 0/10. Pt preferred language is Czech. Pt. denies fall in last 12 months. Allergies and medications reviewed and updated. 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 She is doing well. Continues on HD TTS schedule. States that the fistula is being used without difficulties like alarming or high venous pressures. She notes some pain in the distal fistula at times after dialysis that is not associated with bruising, etc and no pain during dialysis. On palpation the fistula has a thrill proximally and a pulse distally. Will get new duplex to assess for any recurrent stenosis as we have plans for a surgical repair of the cephalic arch stenosis if the stenosis recurs again. - Fistula duplex - Will call patient with results Lima Blair MD, [facility] Vascular Surgery documented in this encounter Plan of Treatment Date Type Specialty Care Team Description 01/20/2019 Office Visit Cardiology Oz Olivares MD [address] [place] [address] 03/22/2019 Office Visit Ophthalmology Cyndie Velásquez MD [address] [facility] [place] [address] 05/08/2019 Office Visit Ophthalmology Reinier Honeycutt MD [address] [place] [address] 08/28/2019 Office Visit Obstetrics & Gynecology Zaida Mccarty MD [address] [place] [address] [address] [place] [address] Health Maintenance Due Date Last Done Comments PNEUMOCOCCAL 0-64 YEARS COMBINED 1988 SERIES (1 of 1 - PPSV23) VARICELLA VACCINES (1 of 2 - 13+ 10/18/1995 2-dose series) FOOT EXAM 2000 DTaP,Tdap,and Td Vaccines (1 - 2001 Tdap) HgA1C 01/04/2018 07/07/2017, 06/21/2017, 03/31/2017, Additional history exists PAP SMEAR 05/03/2018 05/03/2015, 09/02/2010, 04/30/2009, Additional history exists LDL-C 07/07/2018 07/07/2017, 06/23/2012, 06/16/2011, Additional history exists INFLUENZA VACCINE 02/19/2019 06/22/2017, 04/02/2016, 10/28/2015 EYE EXAM 05/02/2019 05/02/2018, 04/06/2018, 03/28/2018, Additional history exists CREATININE (SERUM) 11/26/2019 11/25/2018, 02/25/2018, 01/21/2018, Additional history exists documented as of this encounter Implants Implanted Type Area Design Manager Device Shelf Model / Identifier Expiration Serial / Date Lot Bio Eye Implant, Integrated Orbital Implants Ioi 18mm Perforated #[id number] - [id number] ORBITAL Left: INTEGRATED 09/18/2018 [id number] / Implanted: Qty: 1 on 01/17/2018 by Latrell Mcknight MD at [facility] Eye ORBITAL IMPLANTS [id number] / [id number] documented as of this encounter Results Not on filedocumented in this encounter Visit Diagnoses Diagnosis Malfunction of arteriovenous dialysis fistula, subsequent encounter - Primary documented in this encounter Insurance Payer Benefit Plan / Subscriber ID Effective Dates Phone Address Type Group MEDICARE MEDICARE PART xxxxxxxxxxx 2014-Gurwinder [phone] Medicare [address] & [address] t [address] [id number] [place] [id number] [facility] MEDICAID OF xxxxxxxxx 2017-Leonila [phone] [address] Medicaid [facility] [id number] [place] [address] documented as of this encounter Advance Directives Name Relationship Healthcare Agent Communication Relationship Jennifre Gunderson Mother Primary healthcare agent Lima Found Sibling First alternate healthcare [phone] agent (Mobile)
--- OUTSIDE RECORDS SUMMARY | 2019-03-04 15:10 | XMS REPORT | Summary of Care ---
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 Reason for Referral (BOBBY) Status Reason Specialty Diagnoses / Referred By Referred To Procedures Contact Contact New Request Vascular Surgery Diagnoses Malfunction of arteriovenous dialysis fistula, subsequent encounter Carey Blair DUPLEX SCAN DIALYSIS ACCESS BY VASCULAR LAB MD Lima [address] [place] [phone] Reason for Visit Reason Comments Follow-up Other (Routine) Status Reason Specialty Diagnoses / Procedures Referred By Contact Referred To Contact Closed Urology Diagnoses Malfunction of arteriovenous dialysis fistula, initial encounter Lima Blair, Lima Blair, Procedures Discharge Follow-up: Specialty Provider LIMA BLAIR; 2 Weeks MD BURNS [address] [place] [phone] Encounter Details Date Type Department Care Team Description 01/13/2019 Office Visit [facility] Vascular Lima Blair Malfunction of Surgery- Levi BURNS arteriovenous dialysis [address] [place] [address] fistula, subsequent [address] [place], [place] encounter (Primary Dx) [address] [address] [place], [place] [phone] [address] [phone] Allergies Active Allergy Reactions Severity Noted Date [...] Overview: Added automatically from request for surgery [id number] Candidiasis of vulva and vagina 08/08/2018 Screening for breast cancer 08/08/2018 Pyogenic granuloma of conjunctiva, right 04/06/2018 Overview: Added automatically from request for surgery [id number] 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 Pt preferred language is Divehi. Pt. denies fall in last 12 months. [...] call patient with results Lima Blair MD, [facility] Vascular Surgery documented in this encounter Plan of Treatment Date Type Specialty Care Team Description 01/20/2019 Office Visit Cardiology Oz Olivares MD [address] [place] [address] 03/22/2019 Office Visit Ophthalmology Cyndie Velásquez MD [address] [facility] [place] [address] 05/08/2019 Office Visit Ophthalmology Reinier Honeycutt MD [address] [place] [address] 08/28/2019 Office Visit Obstetrics & Gynecology Zaida Mccarty MD [address] [place] [address] [address] [place] [address] Health Maintenance Due Date Last [...] of this encounter Implants Implanted Type Area Electronic Pagination System Operator Device Shelf Model / Identifier Expiration Serial / Date Lot Bio Eye Implant, Integrated Orbital Implants Ioi 18mm Perforated #[id number] - [id number] ORBITAL Left: INTEGRATED 09/18/2018 [id number] / Implanted: Qty: 1 on 01/17/2018 by Latrell Mcknight MD at [facility] Eye ORBITAL IMPLANTS [id number] / [id number] documented as of this encounter Results Not on filedocumented in this encounter Visit Diagnoses Diagnosis Malfunction of arteriovenous dialysis fistula, subsequent encounter - Primary documented in this encounter Insurance Payer Benefit Plan / Subscriber ID Effective Dates Phone Address Type Group MEDICARE MEDICARE PART xxxxxxxxxxx 2014-Gurwinder [phone] [address] Medicare A & B t 2 [id number] [place] [id number] [facility] MEDICAID OF xxxxxxxxx 2017-Leonila [phone] [address] Medicaid [facility] 0 [id number] [place] [address] documented as of this encounter Advance Directives Name Relationship Healthcare Agent Communication Relationship Jennifer Gunderson Mother Primary healthcare agent Lima Found Sibling First alternate healthcare [phone] agent (Mobile)
--- OUTSIDE RECORDS SUMMARY | 2019-03-04 15:10 | XMS REPORT | Summary of Care ---
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 Family history of premature CAD Family history of ischemic heart disease documented in this encounter Insurance Payer Benefit Plan / Subscriber ID Effective Dates Phone Address Type Group MEDICARE MEDICARE PART xxxxxxxxxxx 2014-Gurwinder [phone] Medicare A & B t 2 [id number] [place] [address] [facility] MEDICAID OF xxxxxxxxx 2017-Leonila [phone] [address] Medicaid [facility] 0 [id number] [place] [address] documented as of this encounter Advance Directives Name Relationship Healthcare Agent Communication Relationship Jennifer Gunderson Mother Primary healthcare agent [place] Found Sibling First alternate healthcare [phone] agent (Mobile)
--- OUTSIDE RECORDS SUMMARY | 2019-03-04 15:10 | XMS REPORT | Summary of Care ---
:1980 Author Organization [facility] Address [address] [place] [address] Care Team Providers Name Role Phone Partha Abraham Primary Care Provider Jose Miguel Morin DO Director Telecommunications Reason for Referral (Routine) Status Reason Specialty Diagnoses / Referred By Referred To Procedures Contact Contact New Request OPH-OPHTHALMOLOGY Diagnoses Orbital pain, left Hunderup, Brandon Procedures Discharge Follow-Up: Specialty Service OPH-OPHTHALMOLOGY; 3-5 Days WMD [address] [place] [id number] MRI/CAT Scan (STAT) Status Reason Specialty Diagnoses / Referred By Referred To Procedures Contact Contact New Request Diagnostic Diagnoses Orbital pain, left Hunderup, Brandon Radiology Procedures CT MAXILLOFACIAL/MANDIBLE W CONTRAST CT MAXILLOFACIAL/MANDIBLE W CONTRAST W, [address] [address] MRI/CAT Scan (STAT) Status Reason Specialty Diagnoses / Referred By Referred To Procedures Contact Contact New Request Diagnostic Diagnoses Orbital pain, left Hunderup, Brandon Radiology Procedures CT MAXILLOFACIAL/MANDIBLE W CONTRAST CT MAXILLOFACIAL/MANDIBLE W CONTRAST WMD [address] [address] Reason for Visit Reason Comments Eye Problem Auth/Cert Status Reason Specialty Diagnoses / Referred By Referred To Procedures Contact Contact Emergency Medicine Ed-Emergency Dept [address] [place] [id number] Encounter Details Date Type Department Care Team Description 01/14/2019 - Emergency [facility] CjerBrandon angel Preseptal cellulitis of left eye (Primary Dx); 01/15/2019 Department MD Yuriy Orbital pain, left [address] [place] [address] [place] [id number] [place] [address] [id number] Allergies Active Allergy Reactions Severity Noted Date [...] as of this encounter (statuses as of 01/15/2019) Medications Medication Sig Dispensed Refills Start Date [...] (VITAMIN by mouth daily. D3 COMPLETE ORAL) clindamycin 150 mg Take 3 capsules 90 capsule 0 01/14/2019 01/24/2019 Active capsuleIndications: by mouth 3 Orbital pain, left (three) times daily for 10 days. erythromycin 5 mg/gram Place 0.5 Inches 1 Tube 0 01/14/2019 Active (0.5 %) ophthalmic in left eye 3 ointmentIndications: (three) times Orbital pain, left daily. Continue until you follow up with eye doctor. HYDROcodone-acetaminop Take 1 tablet by 15 tablet 0 01/14/2019 Active hen 5-325 mg mouth every 6 tabletIndications: (six) hours as Orbital pain, left needed for Pain (scale 7-10). 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 07/22/2017 Overview: Added automatically from request for surgery [id number] Neovascular glaucoma, left eye 07/08/2017 Increased intraocular pressure 07/08/2017 Fall 04/02/2017 Pneumonia 03/31/2017 Diabetes mellitus 03/25/2017 Overview: Added automatically from request for surgery [id number] Pseudotumor cerebri 03/15/2017 Peripheral neuropathy 01/03/2017 Obesity [...] as of this encounter (statuses as of 01/15/2019) Resolved Problems Problem Noted Date Resolved Date Diabetes, type 1.5, uncontrolled, managed as type 2 04/29/2015 09/17/2015 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, 10/20/20122014 uncontrolled Overview: ICD10 Diagnosis Term Roofing Foreman Utility documented as of this encounter (statuses as of 01/15/2019) Immunizations Name Administration Dates Next Due Influenza [...] Sign Reading Time Taken Comments Blood Pressure 191/78 01/14/2019 11:41 PM CDT Pulse 70 01/14/2019 11:41 PM CDT Temperature 36.4 C (97.6 F) 01/14/2019 11:41 PM CDT Respiratory Rate 14 01/14/2019 11:41 PM CDT Oxygen Saturation 96% 01/14/2019 11:41 PM CDT Inhaled Oxygen Concentration - - Weight 90.7 kg (200 lb) 01/14/2019 6:16 PM CDT Height - - Body Mass Index 35.43 12/09/2018 1:55 PM CDT documented in this encounter Discharge Instructions Brandon Epperson, MD - 01/14/2019Diagnosis: Left preseptal cellulitis Rx: Clindamycin 450 mg three times daily. Ilotycin ointment - apply to left eye 3 times daily. [place] if needed for pain. Follow up with ophthalmology in about 3 days. Return to ER for increasing swelling, increasing redness, high fevers, or any problems or concerns. documented in this encounter Plan of Treatment Date Type Specialty Care Team Description 01/20/2019 Office Visit Cardiology Oz Olivares MD [address] [place] [phone] 03/22/2019 Office Visit Ophthalmology Cyndie Velásquez MD [address] [place] [address]. [place] [address] 05/08/2019 Office Visit Ophthalmology Reinier Honeycutt MD [address] [place] [address] 08/28/2019 Office Visit Obstetrics & Gynecology Zaida Mccarty MD [address] [place] [address] [address]. [address] [place] [address] Health Maintenance Due Date Last [...] of this encounter Implants Implanted Type Area Pill Machine Operator Device Shelf Model / Identifier Expiration Serial / Date Lot Bio Eye Implant, Integrated Orbital Implants Ioi 18mm Perforated #[id number] - [id number] ORBITAL Left: INTEGRATED 09/18/2018 [id number] / Implanted: Qty: 1 on 01/17/2018 by Latrell Mcknight MD at [facility] Eye ORBITAL IMPLANTS [id number] / [id number] documented as of this encounter Procedures Procedure Name Priority Date/Time Associated Comments Diagnosis CT STAT 01/14/2019 11:08 Orbital pain, left Results for this MAXILLOFACIAL/MANDIBL PM CDT procedure are in E W CONTRAST the results section. CBC WITH DIFFERENTIAL STAT 01/14/2019 8:07 Orbital pain, left Results for this PM CDT procedure are in the results section. CBC WITH DIFF STAT 01/14/2019 8:07 Orbital pain, left Results for this PM CDT procedure are in the results section. BASIC METABOLIC PANEL STAT 01/14/2019 8:07 Orbital pain, left Results for this (NA, K, CL, CO2, PM CDT procedure are in GLUCOSE, BUN, the results CREATININE, CA) section. documented in this encounter Results CT MAXILLOFACIAL/MANDIBLE W CONTRAST (01/14/2019 11:08 PM CDT) Specimen Impressions Performed At PACS/VR/DOSE Skin thickening and stranding of subcutaneous fat planes left periorbital soft tissues is suggestive of preseptal cellulitis. No evidence of orbital cellulitis. Infected prosthesis cannot be excluded. Clinical correlation is recommended. IAkua MD., have reviewed this study and agree with the above report. Narrative Performed At CT MAXILLOFACIAL/MANDIBLE W CONTRAST PACS/VR/DOSE HISTORY: left prosthetic eye, orbital pain, swelling, rednesss, suspicion for orbital cellulitis. COMPARISON: CT head 11/29/2017, CT maxillary is 06/21/2017 TECHNIQUE: CT maxillofacial/mandible was performed after administration of 80 cc IV Omnipaque contrast. Coronal and sagittal reformats were obtained. FINDINGS: Skin thickening and fat stranding is noted at the left periorbital soft tissues. A left globe prosthesis is noted. The intraconal fat is unremarkable. The extraocular muscles and optic nerve is unremarkable. The right orbital and periorbital structures are unremarkable. The facial soft tissues are otherwise unremarkable. Mild mucoperiosteal thickening is noted in the bilateral maxillary sinuses. The paranasal sinuses and mastoid air cells are otherwise clear. The visualized oral cavity is unremarkable. The submandibular and parotid glands are unremarkable. The visualized portions of the pharynx are unremarkable. Prominent bilateral submandibular lymph nodes likely reactive. Procedure Note [facility], Radiant Results Inft User - 01/14/2019 11:[address] MAXILLOFACIAL/MANDIBLE W CONTRAST HISTORY: left prosthetic eye, orbital pain, swelling, rednesss, suspicion for orbital cellulitis. COMPARISON: CT head 11/29/2017, CT maxillary is 06/21/2017 TECHNIQUE: CT maxillofacial/mandible was performed after administration of 80 cc IV Omnipaque contrast. Coronal and sagittal reformats were obtained. FINDINGS: Skin thickening and fat stranding is noted at the left periorbital soft tissues. A left globe prosthesis is noted. The intraconal fat is unremarkable. The extraocular muscles and optic nerve is unremarkable. The right orbital and periorbital structures are unremarkable. The facial soft tissues are otherwise unremarkable. Mild mucoperiosteal thickening is noted in the bilateral maxillary sinuses. The paranasal sinuses and mastoid air cells are otherwise clear. The visualized oral cavity is unremarkable. The submandibular and parotid glands are unremarkable. The visualized portions of the pharynx are unremarkable. Prominent bilateral submandibular lymph nodes likely reactive. IMPRESSION Skin thickening and stranding of subcutaneous fat planes left periorbital soft tissues is suggestive of preseptal cellulitis. No evidence of orbital cellulitis. Infected prosthesis cannot be excluded. Clinical correlation is recommended. IAkua MD., have reviewed this study and agree with the above report. Performing Organization Address City/State/Zipcode Phone Number PACS/VR/DOSE BASIC METABOLIC PANEL (NA, K, CL, CO2, GLUCOSE, BUN, CREATININE, CA) (2018 8:07 PM CDT) NA [phone] [phone] 145 [facility] mmol/L SERVICES K 4.2 3.5 - 5.0 [facility] mmol/L SERVICES CL 98 98 - 108 mmol/L [facility] SERVICES CO2 TOTAL 30 23 - 31 mmol/L [facility] AGAP 7 2 - 16 [facility] SERVICES BUN 27 (H) 7 - 23 mg/dL [facility] SERVICES GLUCOSE 283 (H) 70 - 110 mg/dL [facility] SERVICES CREATININE 2.81 (H) 0.50 - 1.04 [facility] mg/dL SERVICES CALCIUM 8.7 8.6 - 10.6 [facility] mg/dL SERVICES eGFR Calculation 19.0 mL/min/1.73m2 [facility] (Non- SERVICES Dominican) eGFR Calculation 23.1 mL/min/1.73m2 [facility] () SERVICES Specimen Blood - ARM, LEFT Narrative Performed At Association of Glomerular Filtration Rate (GFR) and Staging [facility] SERVICES of Kidney Disease* + + + + | GFR (mL/min/1.73 m2)| With Kidney Damage|Without Kidney Damage + + + + |>90|Stage one| Normal + + + + |60-89|Stage two| Decreased GFR + + + + |30-59|Stage three| Stage three + + + + |15-29|Stage four | Stage four + + + + |<15 (or dialysis)|Stage five | Stage five + + + + *Each stage assumes the associated GFR level has been in effect for at least three months.Stages 1 to 5, with or without kidney disease, indicate chronic kidney disease. Notes: Determination of stages one and two (with eGFR >59mL/min/1.73 m2) requires estimation of kidney damage for at least three months as defined by structural or functional abnormalities of the kidney, manifested by either: Pathological abnormalities or Markers of kidney damage (including abnormalities in the composition of the blood or urine or abnormalities in imaging tests). Performing Organization Address City/State/Zipcode Phone Number [facility] CLIA: [id number], [address] [place] [address] [facility] CBC WITH DIFFERENTIAL (01/14/2019 8:07 PM CDT) WBC 5.71 4.30 - 11.10 [facility] 10*3/L SERVICES RBC 2.96 (L) 3.93 - 5.25 [facility] 10*6/L SERVICES HGB 9.2 (L) 11.6 - 15.0 [facility] g/dL SERVICES HCT 27.3 (L) 35.7 - 45.2 % [facility] SERVICES MCV 92.2 80.6 - 95.5 [facility] fL SERVICES MCH 31.1 25.9 - 32.8 [facility] pg SERVICES MCHC 33.7 31.6 - 35.1 [facility] g/dL SERVICES RDW-SD 50.2 (H) 39.0 - 49.9 [facility] fL SERVICES RDW-CV 14.8 12.0 - 15.5 % [facility] SERVICES PLT 120 (L) 166 - 358 [facility] 10*3/L SERVICES MPV 13.4 (H) 9.5 - 12.9 fL [facility] IPF % 8.4 (H)Comment: 1.3 - 7.7 % [facility] Platelet count SERVICES measured by fluorescence method. NRBC/100 WBC 0.0 0.0 - 10.0 [facility] /100 WBCs SERVICES NRBC x10^3 <0.01 10*3/L [facility] GRAN MAT (NEUT) % 67.4 % [facility] IMM GRAN % 0.90 % [facility] LYMPH % 22.6 % [facility] MONO % 7.2 % [facility] EOS % 1.4 % [facility] BASO % 0.5 % [facility] SERVICES GRAN MAT 3.85 1.88 - 7.09 [facility] x10^3(ANC) 10*3/uL SERVICES IMM GRAN x10^3 0.05 0.00 - 0.06 [facility] 10*3/uL SERVICES LYMPH x10^3 1.29 (L) 1.32 - 3.29 [facility] 10*3/uL SERVICES MONO x10^3 0.41 0.33 - 0.92 [facility] 10*3/uL SERVICES EOS x10^3 0.08 0.03 - 0.39 [facility] 10*3/uL SERVICES BASO x10^3 0.03 0.01 - 0.07 [facility] 10*3/uL SERVICES Specimen Blood - ARM, LEFT Performing Organization Address City/State/Zipcode Phone Number [facility] CLIA: [id number], [address] [place], [place] [id number] [phone] [facility] documented in this encounter Visit Diagnoses Diagnosis Preseptal cellulitis of left eye - Primary Orbital pain, left documented in this encounter Administered Medications Medication Order MAR Action Action Date Dose Rate Site clindamycin in d5w (CLEOCIN) 600 Given 01/14/2019 11:50 PM CDT 600 mg mg/50 mL Piggyback 600 mg 600 mg, IV Piggyback, ONCE, 1 dose, 01/15/19 at 0030, 50 mL, Reason for Anti-Infective: Empiric Therapy for Suspected Infection, Empiric Therapy Site: Skin / Soft tissue, Duration of therapy: 72 hours, english faculty member approving Restricted medication: BRANDON GARIBAY erythromycin (ILOTYCIN) 5 mg/gram (0.5 Given 01/14/2019 11:50 PM CDT 0.5 Inches %) ophthalmic ointment 0.5 Inch 0.5 Inch, Left Eye, ONCE, 1 dose, 01/15/19 at 0045, BOBBY iohexol (OMNIPAQUE 350 BULK-100 mL) injection Given 01/14/2019 11:15 PM CDT 80 mL 80 mL 80 mL, Intravenous, ONCE, 1 dose, 01/14/19 at 2315, Routine morpHINE injection 4 mg Given 01/14/2019 8:07 PM CDT 4 mg 4 mg, Slow IV Push, ONCE, 1 dose, 01/14/19 at 1945, STAT documented in this encounter Insurance Payer Benefit Plan / Subscriber ID Effective Dates Phone Address Type Group MEDICARE MEDICARE PART xxxxxxxxxxx 2014-Gurwinder [phone] Medicare A & B t 2 [id number] [place] [id number] [facility] MEDICAID OF xxxxxxxxx 2017-Leonila [phone] [address] Medicaid [facility] 0 [id number] [place] [address] documented as of this encounter Advance Directives Name Relationship Healthcare Agent Communication Relationship Jennifer Gunderson Mother Primary healthcare agent [place] Found Sibling First alternate healthcare [phone] agent (Mobile) "
--- OUTSIDE RECORDS SUMMARY | 2019-03-04 15:11 | XMS REPORT | Summary of Care ---
:1980 Author Organization [facility] - Health Address [address] [place] [address] Care Team Providers Name Role Phone Partha Abraham Carlos Primary Care Provider Jose Miguel Morin DO Charge Weigher Encounter Details Date Type Department Care Team Description 02/17/2019 Orders Only [facility] Doctor Unassigned, No [address] [facility] [place] [address] [address] [place] [address] Allergies Active Allergy Reactions Severity Noted Date [...] as of this encounter (statuses as of 02/17/2019) Medications Medication Sig Dispensed Refills Start Date End Date Status divalproex ER (DEPAKOTE Take 500 mg by 0 Active ER) 500 mg 24 hr tablet mouth every 24 (twenty-four) hours. Takes 500 mg am and 1000 mg in pm gabapentin 100 mg Take 100 mg by 0 Active capsule mouth 2 (two) times daily. doxazosin 4 mg tablet Take 4 mg [...] 5 07/29/2017 Active tears,hypromellose, left eye 4 (four) (ISOPTO TEARS) 0.5 % times daily as ophthalmic drops needed for Dry eyes. albuterol 90 Inhale 2 Puffs 8.5 g 0 10/24/2017 Active mcg/actuation inhaler every 4 (four) hours as needed for Wheezing or Shortness of Breath. folic acid/vit B Take 800 mg by 0 Active complex and C mouth daily. (DIALYVITE 800 ORAL) diphenhydrAMINE 50 mg Take 1 tablet by 20 tablet 0 01/21/2018 Active tablet mouth every 6 (six) hours as needed for Allergies. ondansetron (ZOFRAN Take 1 tablet by 20 tablet 0 01/21/2018 Active ODT) 4 mg mouth every 8 disintegrating tablet (eight) hours as needed for Nausea and Vomiting (N/V). linagliptin (TRADJENTA) Take by mouth. 0 Active 5 mg tablet spironolactone 50 mg Take 50 mg by 0 Active tablet mouth daily. BUPROPION HCL ORAL Take by mouth. 0 Active pravastatin 40 mg Take by mouth 0 Active tablet daily. mv-mn/iron/folic Take 1 capsule by 0 Active acid/herb 190 (VITAMIN mouth daily. D3 COMPLETE ORAL) erythromycin 5 mg/gram Place 0.5 Inches 1 Tube 0 01/14/2019 Active (0.5 %) ophthalmic in left eye 3 ointmentIndications: (three) times Orbital pain, left daily. Continue until you follow up with eye doctor. SERTraline 50 mg tablet Take 50 mg by 0 Active mouth daily. calcium acetate 667 mg Take 667 mg by 0 Active capsule mouth 3 (three) times daily with meals. 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 Increased intraocular pressure 07/08/2017 Fall 04/02/2017 Pneumonia 03/31/2017 Diabetes mellitus 03/25/2017 Overview: Added automatically from request for surgery [id number] Pseudotumor cerebri 03/15/2017 Peripheral neuropathy 01/03/2017 Obesity [...] as of this encounter (statuses as of 02/17/2019) Resolved Problems Problem Noted Date Resolved Date Diabetes, type 1.5, uncontrolled, managed as type 2 04/29/2015 09/17/2015 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, 10/20/20122014 uncontrolled Overview: ICD10 Diagnosis Term Pharmacogeneticist Utility documented as of this encounter (statuses as of 02/17/2019) Immunizations Name Administration Dates Next Due Influenza Virus Vaccine Quad IM 3+ YRS 06/22/2017, 04/02/2016, 10/28/2015 documented as of this encounter Social History Tobacco Use Types Packs/Day Years Used Date Former Smoker 0.3 Smokeless Tobacco: Never Used Comments: quit 4--19 Alcohol Use Drinks/Week oz/Week Comments No 0 Standard drinks or equivalent 0.0 Sex Assigned at Date Recorded Not on file Job Start Date Occupation Industry Not on file Not on file Not on file Travel History Travel Start Travel End No recent travel history available. documented as of this encounter Last Filed Vital Signs Not on filedocumented in this encounter Plan of Treatment Date Type Specialty Care Team Description 02/22/2019 Appointment Cardiac Cna Pct Oz Olivares MD [address] MARTINEZ [address] [place] [address] [phone] Outpt-Josy, Ccl 03/22/2019 Office Visit Ophthalmology Cyndie Velásquez MD [address] [place] [address]. [place] [address] 03/31/2019 Office Visit Cardiology Oz Olivares MD [address] [place] [place] [address] [phone] 05/08/2019 Office Visit Ophthalmology Reinier Honeycutt MD [address] [place] [address] 08/28/2019 Office Visit Obstetrics & Gynecology Zaida Mccarty MD [address] [place] [address] DR. Martinez [address] [place] [address] Health Maintenance Due Date Last Done [...] 06/23/2012, 06/16/2011, Additional history exists INFLUENZA VACCINE (#1) 2019 06/22/2017, 04/02/2016, 10/28/2015 EYE EXAM 05/02/2019 05/02/2018, 04/06/2018, 03/28/2018, Additional history exists CREATININE (SERUM) 01/15/2020 01/14/2019, 11/25/2018, 02/25/2018, Additional history exists documented as of this encounter Implants Implanted Type Area Geomatics Professor Device Shelf Model / Identifier Expiration Serial / Date Lot Bio Eye Implant, Integrated Orbital Implants Ioi 18mm Perforated #[id number] - [id number] ORBITAL Left: INTEGRATED 09/18/2018 [id number] / Implanted: Qty: 1 on 01/17/2018 by Latrell Mcknight MD at [facility] Eye ORBITAL IMPLANTS [id number] / [id number] documented as of this encounter Procedures Procedure Name Priority Date/Time Associated Diagnosis Comments NOTICE OF BILLING Routine 02/17/2019 1:09 PM CDT PRACTICES FOR MEDICARE PATIENTS documented in this encounter Results Not on filedocumented in this encounter Insurance Payer Benefit Plan / Subscriber ID Effective Dates Phone Address Type Group MEDICARE MEDICARE PART xxxxxxxxxxx 2014-Presen [phone] Medicare A & B t 2 [id number] [place] [id number] [facility] MEDICAID OF xxxxxxxxx 2017-Prese [phone] [address] Medicaid [facility] 0 [id number] [place] [address] documented as of this encounter Advance Directives Name Relationship Healthcare Agent Communication Relationship Jennifer Gunderson Mother Primary healthcare agent [place] Found Sibling First alternate healthcare [phone] agent (Mobile)[phone] (Brandon)
--- OUTSIDE RECORDS SUMMARY | 2019-03-04 15:11 | XMS REPORT | Summary of Care ---
:1980 Author Organization [facility] Address [address] [place] [address] Care Team Providers Name Role Phone Partha Abraham Carlos Primary Care Provider Jose Miguel Morin DO Supervisor Curing Room Reason for Visit Reason Comments Appointment [facility] Encounter Details Date Type Department Care Team Description 01/25/2019 Telephone [facility] Heart [place] Oz Olivares Appointment ( [facility]) Cardiac Catheterization Lab MD [place] [facility] [address] [facility] [address], [address] [place] [phone] Allergies Active Allergy Reactions Severity Noted Date [...] as of this encounter (statuses as of 01/25/2019) Medications Medication Sig Dispensed Refills Start Date [...] as of this encounter (statuses as of 01/25/2019) Active Problems Problem Noted Date Malfunction of arteriovenous dialysis fistula, initial encounter 11/21/2018 Overview: Added automatically from request for surgery [id number] Candidiasis of vulva and vagina 08/08/2018 Screening for breast cancer 08/08/2018 Pyogenic granuloma of conjunctiva, right 04/06/2018 Overview: Added automatically from request for surgery [id number] 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 07/22/2017 Overview: Added automatically from request for surgery [id number] Neovascular glaucoma, left eye 07/08/2017 Increased intraocular pressure 07/08/2017 Fall 04/02/2017 Pneumonia 03/31/2017 Diabetes mellitus 03/25/2017 Overview: Added automatically from request for surgery [id number] Pseudotumor cerebri 03/15/2017 Peripheral neuropathy 01/03/2017 Obesity [...] as of this encounter (statuses as of 01/25/2019) Resolved Problems Problem Noted Date Resolved Date Diabetes, type 1.5, uncontrolled, managed as type 2 04/29/2015 09/17/2015 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 [address] 03/31/2019 Office Visit Cardiology Oz Olivares MD [address] [place] [phone] 05/08/2019 Office Visit Ophthalmology Reinier Honeycutt MD [address] [place] [address] 08/28/2019 Office Visit Obstetrics & Gynecology Zaida Mccarty MD [address] [place] [address] [address]. Martinez [address] [place], [place] [phone] Health Maintenance Due Date Last Done Comments [...] of this encounter Implants Implanted Type Area Prospecting Driller Helper Device Shelf Model / Identifier Expiration Serial / Date Lot Bio Eye Implant, Integrated Orbital Implants Ioi 18mm Perforated #[id number] - [id number] ORBITAL Left: INTEGRATED 09/18/2018 [id number] / Implanted: Qty: 1 on 01/17/2018 by Latrell Mcknight MD at [facility] Eye ORBITAL IMPLANTS [id number] / [id number] documented as of this encounter Results Not on filedocumented in this encounter Insurance Payer Benefit Plan / Subscriber ID Effective Dates Phone Address Type Group MEDICARE MEDICARE PART xxxxxxxxxxx 2014-Presen [phone] [address] Medicare A & B t 2 [id number] [place] [id number] [facility] MEDICAID OF xxxxxxxxx 2017-Prese [phone] [address] Medicaid [facility] 0 [id number] [place] [address] documented as of this encounter Advance Directives Name Relationship Healthcare Agent Communication Relationship Jennifer Gunderson Mother Primary healthcare agent [place] Found Sibling First alternate healthcare [phone] agent (Mobile)
--- OUTSIDE RECORDS SUMMARY | 2019-03-04 15:11 | XMS REPORT | Summary of Care ---
:1980 Author Organization [facility] Address [address] [place] [address] Care Team Providers Name Role Phone Partha Abraham Carlos Primary Care Provider Jose Miguel Morin DO Quality Compliance Coordinator Reason for Visit Reason Comments Appointment [facility] Encounter Details Date Type Department Care Team Description 01/25/2019 Telephone [facility] Heart [place] Oz Olivares Appointment ( [facility]) Cardiac Catheterization Lab MD [place] [facility] [address] [facility] [address] 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 07/22/2017 Overview: Added automatically from request for surgery [id number] Neovascular glaucoma, left eye 07/08/2017 Increased intraocular pressure 07/08/2017 Fall 04/02/2017 Pneumonia 03/31/2017 Diabetes mellitus 03/25/2017 Overview: Added automatically from request for surgery [id number] Pseudotumor cerebri 03/15/2017 Peripheral neuropathy 01/03/2017 Obesity [...] manifestations, 10/20/20122014 uncontrolled Overview: ICD10 Diagnosis Term Coding Educator Utility documented as of this encounter (statuses [...] 03/22/2019 Office Visit Ophthalmology Cyndie Velásquez MD [address] [place] [address]. [place] [address] 03/31/2019 Office Visit Cardiology Oz Olivares MD [address] [place] [address] [address] MART[address] [place] [address] [phone] 05/08/2019 Office Visit Ophthalmology Reinier Honeycutt MD [address] [place] [phone] 08/28/2019 Office Visit Obstetrics & Gynecology Zaida Mccarty MD [address] [place] [address] [address]. [address] [place], [place] [phone] Health Maintenance Due Date Last Done Comments [...] of this encounter Implants Implanted Type Area Life Insurance Salesperson Device Shelf Model / Identifier Expiration Serial / Date Lot Bio Eye Implant, Integrated Orbital Implants Ioi 18mm Perforated #[id number] - [id number] ORBITAL Left: INTEGRATED 09/18/2018 [id number] / Implanted: Qty: 1 on 01/17/2018 by Latrell Mcknight MD at [facility] Eye ORBITAL IMPLANTS [id number] / [id number] documented as of this encounter Results Not on filedocumented in this encounter Insurance Payer Benefit Plan / Subscriber ID Effective Dates Phone Address Type Group MEDICARE MEDICARE PART xxxxxxxxxxx 2014-Presen [phone] [address] Medicare A & B t 2 [id number] [place] [phone] [facility] MEDICAID OF xxxxxxxxx 2017-Prese [phone] [address] Medicaid [facility] 0 [id number] [facility] [place] [address] documented as of this encounter Advance Directives Name Relationship Healthcare Agent Communication Relationship Jennifer Gunderson Mother Primary healthcare agent [place] Found Sibling First alternate healthcare [phone] agent (Mobile)
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
--- OUTSIDE RECORDS SUMMARY | 2019-03-04 15:13 | XMS REPORT | Summary of Care ---
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 Reverse Engineer Reason for Visit Reason Comments Notification Encounter Details Date Type Department Care Team Description 02/25/2019 Telephone [facility] Vascular Adán Horn MD Notification Surgery- [facility] [address] [phone] [place] [address] Allergies Active Allergy Reactions Severity Noted Date [...] as of this encounter (statuses as of 02/25/2019) Medications Medication Sig Dispensed Refills Start Date [...] as of this encounter (statuses as of 02/25/2019) Active Problems Problem Noted Date Malfunction of arteriovenous dialysis fistula, initial encounter 11/21/2018 Overview: Added automatically from request for surgery [id number] Candidiasis of vulva and vagina 08/08/2018 Screening for breast cancer 08/08/2018 Pyogenic granuloma of conjunctiva, right 04/06/2018 Overview: Added automatically from request for surgery [id number] 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 07/22/2017 Overview: Added automatically from request for surgery [id number] Neovascular glaucoma, left eye 07/08/2017 Increased intraocular pressure 07/08/2017 Fall 04/02/2017 Pneumonia 03/31/2017 Diabetes mellitus 03/25/2017 Overview: Added automatically from request for surgery [id number] Pseudotumor cerebri 03/15/2017 Peripheral neuropathy 01/03/2017 Obesity [...] as of this encounter (statuses as of 02/25/2019) Resolved Problems Problem Noted Date Resolved Date Diabetes, type 1.5, uncontrolled, managed as type 2 04/29/2015 09/17/2015 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 [place] [address] 03/31/2019 Office Visit Cardiology Oz Olivares MD [address] [place] [address] [address]ART[address] [place] [phone] 05/08/2019 Office Visit Ophthalmology Reinier Honeycutt MD [address] [place] [phone] 08/28/2019 Office Visit Obstetrics & Gynecology Zaida Mccarty MD [address] [place] [address] [address] [place] [address] Health Maintenance Due Date Last [...] (#1) 2019 06/22/2017, 04/02/2016, 10/28/2015 EYE EXAM 02/18/2020 02/17/2019, 05/02/2018, 04/06/2018, Additional history exists CREATININE (SERUM) 02/23/2020 02/22/2019, 01/14/2019, 11/25/2018, Additional history exists documented as of this encounter Implants Implanted Type Area Fox Farmer Device Shelf Model / Identifier Expiration Serial / Date Lot Bio Eye Implant, Integrated Orbital Implants Ioi 18mm Perforated #[id number] - [id number] ORBITAL Left: INTEGRATED 09/18/2018 [id number] / Implanted: Qty: 1 on 01/17/2018 by Latrell Mcknight MD at [facility] Eye ORBITAL IMPLANTS [id number] / [id number] documented as of this encounter Results Not on filedocumented in this encounter Insurance Payer Benefit Plan / Subscriber ID Effective Dates Phone Address Type Group MEDICARE MEDICARE PART xxxxxxxxxxx 2014-Presen [phone] [address] Medicare A & B t 2 [id number] [place] [id number] [facility] MEDICAID OF xxxxxxxxx 2017-Prese [phone] [address] Medicaid [facility] 0 [id number] [facility] [address] documented as of this encounter Advance Directives Name Relationship Healthcare Agent Communication Relationship Jennifer Gunderson Mother Primary healthcare agent Lima Found Sibling First alternate healthcare [phone] agent (Mobile)
--- OUTSIDE RECORDS SUMMARY | 2019-03-04 15:13 | XMS REPORT | Summary of Care ---
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 Reason for Visit (Routine) Status Reason Specialty Diagnoses / Procedures Referred By Contact Referred To Contact Closed Cardiology Diagnoses Essential hypertension Atypical chest pain ESRD (end stage renal disease) on dialysis Obesity (BMI 30-39.9) BABCOCK (dyspnea on exertion) Family history of premature CAD Oz Olivares Procedures Cardiac Cath Request for Service (Cardiology Use Only) MD Mami [address] [place] [phone] Encounter Details Date Type Department Care Team Description 02/22/2019 [facility] Heart Oz Olivares MD [address] [place] [address] Essential Encounter Center Cardiac Outpt-Josy, Ccl hypertension, Catheterization Lab benign (Primary Dx) [facility], 6th Floor [address] [facility] [address], [address] [place] [address] Allergies Active Allergy Reactions Severity Noted Date [...] as of this encounter (statuses as of 02/23/2019) Medications Medication Sig Dispensed Refills Start Date [...] vitamin C with lilliana Take 2,000 mg by 0 Active hips [...] as of this encounter (statuses as of 02/23/2019) Active Problems Problem Noted Date Malfunction of arteriovenous dialysis fistula, initial encounter 11/21/2018 Overview: Added automatically from request for surgery [id number] Candidiasis of vulva and vagina 08/08/2018 Screening for breast cancer 08/08/2018 Pyogenic granuloma of conjunctiva, right 04/06/2018 Overview: Added automatically from request for surgery [id number] 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 07/22/2017 Overview: Added automatically from request for surgery [id number] Neovascular glaucoma, left eye 07/08/2017 Increased intraocular pressure 07/08/2017 Fall 04/02/2017 Pneumonia 03/31/2017 Diabetes mellitus 03/25/2017 Overview: Added automatically from request for surgery [id number] Pseudotumor cerebri 03/15/2017 Peripheral neuropathy 01/03/2017 Obesity [...] as of this encounter (statuses as of 02/23/2019) Resolved Problems Problem Noted Date Resolved Date Diabetes, type 1.5, uncontrolled, managed as type 2 04/29/2015 09/17/2015 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, 10/20/20122014 uncontrolled Overview: ICD10 Diagnosis Term International Editorial Producer Utility documented as of this encounter (statuses as of 02/23/2019) Immunizations Name Administration Dates Next Due Influenza [...] Sign Reading Time Taken Comments Blood Pressure 113/70 02/22/2019 4:05 PM CDT Pulse 74 02/22/2019 4:05 PM CDT Temperature - - Respiratory Rate 16 02/22/2019 4:03 PM CDT Oxygen Saturation 99% 02/22/2019 4:05 PM CDT Inhaled Oxygen Concentration - - Weight 92.3 kg (203 lb 7.8 oz) 02/22/2019 9:50 AM CDT Height 160 cm (5' 3") 02/22/2019 9:50 AM CDT Body Mass Index 36.05 02/22/2019 9:50 AM CDT documented in this encounter Discharge Instructions Lilliana Harrell RN - 02/22/2019 Patient Discharge Instructions Follow instructions as indicated below: Discharge Orders Activity As Tolerated Lift nothing heavier than 5 pounds for 2 weeks Do not operate a motorized vehicle for 2 days Keep area dry and clean Do not remove band-aid for the first 24 hours after procedure Do not soak in bathtub or hot tub for the first 24 hours after procedure Watch for bleeding, swelling, pain, fever, and any discharge call the Circulation Worker ( during hours) Order Comments: At nights, weekends or holidays, call the [facility] hospital piercer operator at . Ask the piercer operator to page the Cardiac Cath Fellow who is on-call. Avoid making important life decisions for the first 48 hours No strenuous activity for 72 hours Drink plenty of water Continue previous outpatient medications Hold Metformin for 48 hours Bottom bunk pass for 7 days after EP Procedure Medically unassigned for 7 days Order Comments: Medically unassigned for 7 days. Discharge follow up: C Cardiology Resume pre procedure diet Order Comments: Resume pre procedure diet Weight: In general, sudden weight gains or losses should be reported to your provider. Cardiac patients should weigh daily and notify their provider for a weight gain of 3 pounds per day or 5 pounds per week. Follow-up appointments: To schedule other appointments, call the [facility] Health Access Center at [phone] or . You may also make appointments online by going to [email or web address] and follow the RequestAppointment quicklink. Take Home Medications These are medications ordered for you by your healthcare provider. Do not take any other medicationsor supplements unless advised by your healthcare provider. Patient's Medications START taking these medications No [...] mouth 3 (three) times daily with meals. DIPHENHYDRAMINE 50 MG TABLET Take 1 tablet [...] mg by mouth 2 (two) times daily. GLIPIZIDE 5 MG TABLET Take 5 mg by mouth. LINAGLIPTIN (TRADJENTA) 5 MG TABLET Take by [...] medications on file STOP taking these medications No medications on file Medications: Your doctor may prescribe medicine to prevent blood clots. You may also have to take medicine to prevent chest pain. Take your medicine as usual after the procedure unless your doctor has told you to stop. Any changes in your medicine's schedule will be explained to you. For questions regarding follow-up instructions call the [facility] Health Access Center at or For worsening symptoms/changing condition/problems or questions: During normal business hours call the [facility] Cardiac Circulation Worker at . At nights, weekends or holidays, call the [facility] piercer operator at . Ask the piercer operator to page the Cardiac Cath Fellow who is on-call. Emergency: Go to the closest emergency room or call 911 Signs and Symptoms of a Problem: Call your doctor if you have any of the following problems: Fever Swelling, pain, redness around the puncture site Foul smell or drainage from the site Odd changes in sensations, like numbness, tingling, coldness or pain in the arm or leg where the catheter was inserted. If you start Bleeding: Apply pressure to the site. If the bleeding continues, have someone call your doctor and make arrangements to see him/her. Please follow the doctor's directions. Our Goal is to Always Provide You with Very Good Care! We will be mailing you a survey, Please complete and return at your convenience. Thank You TOBACCO AVOIDANCE Exposure to tobacco either from smoking or from second hand (environmental) smoke or smokeless tobacco (snuff) is damaging to your health. This information is to encourage everyone to avoid tobacco exposure. It is recommended that you: ? If you smoke or use smokeless tobacco, we encourage you to quit. ? If you have already quit smoking, continue your good work! ? If you do not smoke or use smokeless tobacco, do not start. ? Avoid secondhand smoke. Additional Resources You may want to contact these organizations for further information on smoking and how to quit. [place] [employer], http://www.lungusa.org/stop-smoking/ [place] [employer] Society, http://www.cancer.org/Healthy/StayAwayfromTobacco/index [place] Heart Association, http://www.heart.org/HEARTORG/GettingHealthy/ QuitSmoking/Quit-Smoking_[facility]_001085_SubHomePage.jsp documented in this encounter Plan of Treatment Date Type Specialty Care Team Description 03/22/2019 Office Visit Ophthalmology Cyndie Velásquez MD [address] [place] [address]. [place] [address] 03/31/2019 Office Visit Cardiology Oz Olivares MD [address] [place] [phone] 05/08/2019 Office Visit Ophthalmology Reinier Honeycutt MD [address] [place] [address] [phone] 08/28/2019 Office Visit Obstetrics & Gynecology Zaida Mccarty MD [address] [place] [address] [place] [address] [phone] Health Maintenance Due Date Last Done Comments [...] INFLUENZA VACCINE (#1) 2019 06/22/2017, 04/02/2016, 10/28/2015 CREATININE (SERUM) 01/15/2020 01/14/2019, 11/25/2018, 02/25/2018, Additional history exists EYE EXAM 02/18/2020 02/17/2019, 05/02/2018, 04/06/2018, Additional history exists documented as of this encounter Implants Implanted Type Area Family Helper Device Shelf Model / Identifier Expiration Serial / Date Lot Bio Eye Implant, Integrated Orbital Implants Ioi 18mm Perforated #[id number] - [id number] ORBITAL Left: INTEGRATED 09/18/2018 [id number] / Implanted: Qty: 1 on 01/17/2018 by Latrell Mcknight MD at [facility] Eye ORBITAL IMPLANTS [id number] / [id number] documented as of this encounter Results Not on filedocumented in this encounter Visit Diagnoses Diagnosis Essential hypertension, benign - Primary documented in this encounter Insurance Payer Benefit Plan / Subscriber ID Effective Dates Phone Address Type Group MEDICARE MEDICARE PART xxxxxxxxxxx 2014-Gurwinder [phone] Medicare A & B t 2 [id number] [place] [phone] [facility] MEDICAID OF xxxxxxxxx 2017-Leonila [phone] [address] Medicaid [facility] 0 [id number] [place] [address] documented as of this encounter Advance Directives Name Relationship Healthcare Agent Communication Relationship Jennifer Gunderson Mother Primary healthcare agent Lima Found Sibling First alternate healthcare [phone] agent (Mobile)
--- OUTSIDE RECORDS SUMMARY | 2019-03-04 15:13 | XMS REPORT | Summary of Care ---
:1980 Author Organization [facility] Address [address] [place] [address] Care Team Providers Name Role Phone AleksPartha fernandez Carlos Primary Care Provider Jose Miguel Morin DO Valet Parking Attendant Encounter Details Date Type Department Care Team Description 02/22/2019 [facility] Heart Oz Olivares MD [address] [phone] Essential hypertension; Encounter Center Cardiac Outpt-Josy, Ccl Atypical chest pain; Catheterization Lab ESRD (end stage renal disease) on dialysis; [facility], Obesity (BMI 30-39.9); 6th Floor BABCOCK (dyspnea on exertion); [address], [address] [place] [address] Allergies Active Allergy Reactions Severity [...] Overview: Added automatically from request for surgery [id number] Candidiasis of vulva and vagina 08/08/2018 Screening for breast cancer 08/08/2018 Pyogenic granuloma of conjunctiva, right 04/06/2018 Overview: Added automatically from request for surgery [id number] 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 07/22/2017 Overview: Added automatically from request for surgery [id number] Neovascular glaucoma, left eye 07/08/2017 Increased intraocular pressure 07/08/2017 Fall 04/02/2017 Pneumonia 03/31/2017 Diabetes mellitus 03/25/2017 Overview: Added automatically from request for surgery [id number] Pseudotumor cerebri 03/15/2017 Peripheral neuropathy 01/03/2017 Obesity [...] manifestations, 10/20/20122014 uncontrolled Overview: ICD10 Diagnosis Term Investigator Narcotics Utility documented as of this encounter (statuses [...] 03/22/2019 Office Visit Ophthalmology Cyndie Velásquez MD [address] [place] [address]. [place], [place] [phone] 03/31/2019 Office Visit Cardiology Oz Olivares MD [address] [place] [address] [address]ART[address] [place] [place] [phone] 05/08/2019 Office Visit Ophthalmology Reinier Honeycutt MD [address] [place] [address] [phone] 08/28/2019 Office Visit Obstetrics & Gynecology Zaida Mccarty MD [address] [place] [address] [address] [place], [place] [phone] Health Maintenance Due Date Last Done Comments [...] of this encounter Implants Implanted Type Area Certified Prosthetist Device Shelf Model / Identifier Expiration Serial / Date Lot Bio Eye Implant, Integrated Orbital Implants Ioi 18mm Perforated #[id number] - [id number] ORBITAL Left: INTEGRATED 09/18/2018 [id number] / Implanted: Qty: 1 on 01/17/2018 by Latrell Mcknight MD at [facility] Eye ORBITAL IMPLANTS [id number] / [id number] documented as of this encounter Procedures Procedure Name Priority Date/Time Associated Comments Diagnosis CBC WITH DIFFERENTIAL Routine 02/22/2019 9:32 Essential Results for this AM CDT hypertension procedure are in Atypical chest pain the results ESRD (end stage section. renal disease) on dialysis Obesity (BMI 30-39.9) BABCOCK (dyspnea on exertion) Family history of premature CAD CBC WITH DIFF Routine 02/22/2019 9:32 Essential Results for this AM CDT hypertension procedure are in Atypical chest pain the results ESRD (end stage section. renal disease) on dialysis Obesity (BMI 30-39.9) BABCOCK (dyspnea on exertion) Family history of premature CAD COMP. METABOLIC PANEL Routine 02/22/2019 9:32 Essential Results for this (03509) AM CDT hypertension procedure are in Atypical chest pain the results ESRD (end stage section. renal disease) on dialysis Obesity (BMI 30-39.9) BABCOCK (dyspnea on exertion) Family history of premature CAD documented in this encounter Results CBC WITH DIFFERENTIAL (02/22/2019 9:32 AM CDT) WBC 5.43 4.30 - 11.10 [facility] 10*3/L SERVICES RBC 3.34 (L) 3.93 - 5.25 [facility] 10*6/L SERVICES HGB 10.6 (L) 11.6 - 15.0 [facility] g/dL SERVICES HCT 31.6 (L) 35.7 - 45.2 % [facility] SERVICES MCV 94.6 80.6 - 95.5 fL [facility] MCH 31.7 25.9 - 32.8 pg [facility] MCHC 33.5 31.6 - 35.1 [facility] g/dL SERVICES RDW-SD 50.2 (H) 39.0 - 49.9 fL [facility] SERVICES RDW-CV 14.7 12.0 - 15.5 % [facility] SERVICES PLT 101 (L) 166 - 358 [facility] 10*3/L SERVICES MPV 12.6 9.5 - 12.9 fL [facility] SERVICES NRBC/100 WBC 0.0 0.0 - 10.0 /100 [facility] WBCs SERVICES NRBC x10^3 <0.01 10*3/L [facility] SERVICES GRAN MAT (NEUT) % 63.3 % [facility] IMM GRAN % 0.90 % [facility] LYMPH % 26.2 % [facility] MONO % 7.2 % [facility] EOS % 1.8 % [facility] BASO % 0.6 % [facility] GRAN MAT x10^3(ANC) 3.44 1.88 - 7.09 [facility] 10*3/uL SERVICES IMM GRAN x10^3 0.05 0.00 - 0.06 [facility] 10*3/uL SERVICES LYMPH x10^3 1.42 1.32 - 3.29 [facility] 10*3/uL SERVICES MONO x10^3 0.39 0.33 - 0.92 [facility] 10*3/uL SERVICES EOS x10^3 0.10 0.03 - 0.39 [facility] 10*3/uL SERVICES BASO x10^3 0.03 0.01 - 0.07 [facility] 10*3/uL SERVICES Specimen Blood Performing Organization Address City/State/Zipcode Phone Number [facility] CLIA: [id number], [address] [place] [address] [facility] COMP. METABOLIC PANEL ([id number]) (02/22/2019 9:32 AM CDT) NA 136 135 - 145 [facility] mmol/L SERVICES K 4.9 3.5 - 5.0 [facility] mmol/L SERVICES CL 97 (L) 98 - 108 mmol/L [facility] CO2 TOTAL 28 23 - 31 mmol/L [facility] AGAP 11 2 - 16 [facility] BUN 27 (H) 7 - 23 mg/dL [facility] GLUCOSE 491 (HH) 70 - 110 mg/dL [facility] CREATININE 4.67 (H) 0.50 - 1.04 [facility] mg/dL SERVICES TOTAL BILI 0.4 0.1 - 1.1 mg/dL [facility] CALCIUM 9.2 8.6 - 10.6 [facility] mg/dL SERVICES T PROTEIN 6.7 6.3 - 8.2 g/dL [facility] ALBUMIN 3.7 3.5 - 5.0 g/dL [facility] ALK PHOS 98 34 - 122 U/L [facility] ALT(SGPT) 19 9 - 51 U/L [facility] AST(SGOT) 24 13 - 40 U/L [facility] eGFR Calculation 10.6 mL/min/1.73m2 [facility] (Non- SERVICES Mexican) eGFR Calculation 12.8 mL/min/1.73m2 [facility] () SERVICES Specimen Blood Narrative Performed At Association of Glomerular Filtration Rate (GFR) and Staging [facility] of Kidney Disease* [...] tests). Performing Organization Address City/State/Zipcode Phone Number [facility] CLIA: [id number], [address] [place] [address] [place] [address] documented in this encounter Visit Diagnoses Diagnosis Essential hypertension Unspecified essential hypertension Atypical chest pain Other chest pain ESRD (end stage renal disease) on dialysis End stage renal disease Obesity (BMI 30-39.9) Obesity, unspecified BABCOCK (dyspnea on exertion) Other dyspnea and respiratory abnormality Family history of premature CAD Family history of ischemic heart disease documented in this encounter Administered Medications Medication Order MAR Action Action Date Dose Rate Site FENTanyl PF (SUBLIMAZE (PF)) Given 02/22/2019 12:15 PM CDT 25 mcg injection Slow IV Push, TITRATE - FOR PROCEDURE USE, 1 dose, Starting Wed02/22/19 at 1215, Until Wed02/22/19 at 1215, Routine FENTanyl PF (SUBLIMAZE (PF)) injection Given 02/22/2019 12:30 PM CDT 25 mcg Slow IV Push, TITRATE - FOR PROCEDURE USE, 1 dose, Starting Wed02/22/19 at 1230, Until Wed02/22/19 at 1230, Routine lidocaine 1% (PF) (XYLOCAINE) injection Given 02/22/2019 12:15 PM CDT 10 mL Infiltration, TITRATE - FOR PROCEDURE USE, 1 dose, Starting Wed02/22/19 at 1215, Until Wed02/22/19 at 1215, Routine midazolam (VERSED) injection Given 02/22/2019 12:15 PM CDT 1 mg IV Push, TITRATE - FOR PROCEDURE USE, 1 dose, Starting Wed02/22/19 at 1215, Until Wed02/22/19 at 1215, Routine midazolam (VERSED) injection Given 02/22/2019 12:30 PM CDT 1 mg IV Push, TITRATE - FOR PROCEDURE USE, 1 dose, Starting Wed02/22/19 at 1230, Until Wed02/22/19 at 1230, Routine documented in this encounter Insurance Payer Benefit Plan / Subscriber ID Effective Dates Phone Address Type Group MEDICARE MEDICARE PART xxxxxxxxxxx 2014-Gurwinder [phone] [address] Medicare A & B t 2 [id number] [place] [id number] [facility] MEDICAID OF xxxxxxxxx 2017-Leonila [phone] [address] Medicaid [facility] 0 [id number] [place] [address] documented as of this encounter Advance Directives Name Relationship Healthcare Agent Communication Relationship Jennifer Gunderson Mother Primary healthcare agent Lima Found Sibling First alternate healthcare [phone] agent (Mobile) "
--- OUTSIDE RECORDS SUMMARY | 2019-03-04 15:14 | XMS REPORT | Summary of Care ---
:1980 Author Organization [facility] Address [address] [place] [id number] Care Team Providers Name Role Phone Partha Abraham Primary Care Provider Jose Miguel Morin DO Ship [employer] Reason for Referral (Routine) Status Reason Specialty Diagnoses / Referred By Referred To Procedures Contact Contact New Request Vascular Surgery Diagnoses Problem with dialysis access, initial encounter Carey Horn HEMODIALYSIS ACCESS BY VASCULAR LAB Adán Nix MD [address] [place] [phone] Reason for Visit Reason Comments Notification Encounter Details Date Type Department Care Team Description 02/25/2019 Telephone [facility] Vascular Adán Horn MD Notification Surgery- [facility] [address] 2[address] [id number] [place] [address] Allergies Active Allergy Reactions Severity Noted Date [...] as of this encounter (statuses as of 02/27/2019) Medications Medication Sig Dispensed Refills Start Date [...] as of this encounter (statuses as of 02/27/2019) Active Problems Problem Noted Date Malfunction of arteriovenous dialysis fistula, initial encounter 11/21/2018 Overview: Added automatically from request for surgery [id number] Candidiasis of vulva and vagina 08/08/2018 Screening for breast cancer 08/08/2018 Pyogenic granuloma of conjunctiva, right 04/06/2018 Overview: Added automatically from request for surgery [id number] 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 07/22/2017 Overview: Added automatically from request for surgery [id number] Neovascular glaucoma, left eye 07/08/2017 Increased intraocular pressure 07/08/2017 Fall 04/02/2017 Pneumonia 03/31/2017 Diabetes mellitus 03/25/2017 Overview: Added automatically from request for surgery [id number] Pseudotumor cerebri 03/15/2017 Peripheral neuropathy 01/03/2017 Obesity [...] as of this encounter (statuses as of 02/27/2019) Resolved Problems Problem Noted Date Resolved Date Diabetes, type 1.5, uncontrolled, managed as type 2 04/29/2015 09/17/2015 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 [address] 03/31/2019 Office Visit Cardiology Oz Olivares MD [address] [place], [place] [address] [place] [address] 05/08/2019 Office Visit Ophthalmology Reinier Honeycutt MD [address] [place] [address] 08/28/2019 Office Visit Obstetrics & Gynecology Zaida Mccarty MD [address] [place] [address] [place] [address] [phone] Health Maintenance Due Date Last Done Comments [...] of this encounter Implants Implanted Type Area Enrollment Eligibility Representative Device Shelf Model / Identifier Expiration Serial / Date Lot Bio Eye Implant, Integrated Orbital Implants Ioi 18mm Perforated #[id number] - [id number] ORBITAL Left: INTEGRATED 09/18/2018 [id number] / Implanted: Qty: 1 on 01/17/2018 by Latrell Mcknight MD at [facility] Eye ORBITAL IMPLANTS [id number] / [id number] documented as of this encounter Results Not on filedocumented in this encounter Visit Diagnoses Diagnosis Problem with dialysis access, initial encounter - Primary documented in this encounter Insurance Payer Benefit Plan / Subscriber ID Effective Dates Phone Address Type Group MEDICARE MEDICARE PART xxxxxxxxxxx 2014-Gurwinder [phone] [address] Medicare A & B t 2 [id number] [place] [id number] [facility] MEDICAID OF xxxxxxxxx 2017-Leonila [phone] [address] Medicaid [facility] [address] [id number] [place] [address] documented as of this encounter Advance Directives Name Relationship Healthcare Agent Communication Relationship Jennifer Gunderson Mother Primary healthcare agent L[place] Found Sibling First alternate healthcare [phone] agent (Mobile)
--- NOTE | 2019-03-04 17:53 | ER ---
Nurse's Notes [facility] Name: Cathi Zaldivar Age: 38 yrs Sex: Female : 1980 Arrival Date: 03/04/2019 Time: 14:36 Bed 6 Private MD: Diagnosis: Acute pharyngitis Presentation: 03/04 14:51 Presenting complaint: Patient states: Cough and sorethroat, pain in throat worsening sg today, denies N/V/D, unsure if any fever at home. Transition of care: patient was not received from another setting of care. Onset of symptoms was March 04, 2019. Risk Assessment: Do you want to hurt yourself or someone else? Patient reports no desire to harm self or others. Initial Sepsis Screen: Does the patient meet any 2 criteria? No. Patient's initial sepsis screen is negative. Does the patient have a suspected source of infection? No. Patient's initial sepsis screen is negative. Care prior to arrival: None. 14:51 Method Of Arrival: Ambulatory sg 14:51 Acuity: JESSICA 4 sg HOT MAN: 16:58 LMP N/A - . tw2 Historical: - Allergies: 14:51 ambien; sg 14:51 Codeine; sg 14:51 Demerol; sg 14:51 Lisinopril; sg 14:51 Nitrofurantoin Macrocrystal; sg 14:51 PENICILLINS; sg 14:51 Prolixin; sg 16:20 Guaifenesin; tw2 16:20 zolpidem tartrate; tw2 - Home Meds: 14:51 doxazosin 4 mg Oral tab twice a day [Active]; sg 16:20 amlodipine 10 mg tab 1 tab once daily [Active]; divalproex 500 mg Oral TbEC once daily tw2 [Active]; gabapentin 100 mg Oral cap as needed [Active]; hydralazine 50 mg Oral tab [Active]; Lantus 100 unit/mL Sub-Q soln as needed [Active]; metoprolol tartrate 25 mg Oral tab 1 tab 2 times per day [Active]; Novolog 100 unit/mL Sub-Q soln [Active]; pravastatin Oral [Active]; sertraline 50 mg Oral tab [Active]; tramadol 50 mg Oral tab 1 tab PRN [Active]; Vitamin D3 5,000 unit Oral tab daily [Active]; Zofran (as hydrochloride) 4 mg Oral tab as needed [Active]; - PMHx: 14:51 chronic kidney disease; cyclic vomiting syndrome; Diabetes - NIDDM; ENCEPHALOPATHY; sg Gastroparesis; HD-TTHSat; liver failure; PERIPHERAL NEUROPATHY; - PSHx: 14:51 right arm fistula; sg - Immunization history:: Adult Immunizations not up to date. - Social history:: Smoking status: Patient uses tobacco products. - Ebola Screening: : Patient negative for fever greater than or equal to 101.5 degrees Fahrenheit, and additional compatible Ebola Virus Disease symptoms Patient denies exposure to infectious person Patient denies travel to an Ebola-affected area in the 21 days before illness onset No symptoms or risks identified at this time. Screenin:18 Abuse screen: Denies threats or abuse. Nutritional screening: No deficits noted. tw2 Tuberculosis screening: No symptoms or risk factors identified. Fall Risk None identified. Assessment: 16:54 General: Appears in no apparent distress. obese, Behavior is calm, cooperative, tw2 appropriate for age. Pain: Complains of pain in uvula, left aspect of posterior pharynx and right aspect of posterior pharynx. Neuro: Level of Consciousness is awake, alert, obeys commands, Oriented to person, place, time, situation. Cardiovascular: Heart tones S1 S2 Patient's skin is warm and dry. Dialysis shunt: in the right arm. Respiratory: Airway is patent Respiratory effort is even, unlabored, Respiratory pattern is regular, symmetrical, Breath sounds are clear bilaterally. GI: No signs and/or symptoms were reported involving the gastrointestinal system. Abdomen is round non-distended, obese, Bowel sounds present X 4 quads. : No signs and/or symptoms were reported regarding the genitourinary system. EENT: Throat is reddened. Derm: No signs and/or symptoms reported regarding the dermatologic system. Musculoskeletal: Range of motion: intact in all extremities. 17:59 Reassessment: Patient appears in no apparent distress at this time. No changes from tw2 previously documented assessment. Patient and/or family updated on plan of care and expected duration. Pain level reassessed. Patient is alert, oriented x 3, equal unlabored respirations, skin warm/dry/pink. Vital Signs: 14:59 BP 110 / 66; Pulse 87; Resp 16; Temp 98.3; Pulse Ox 98% on R/A; Pain 0/10; sg 16:54 BP 136 / 69; Pulse 78; Resp 17; Temp 97.7(TE); Pulse Ox 96% on R/A; tw2 ED Course: 14:36 Patient arrived in ED. rg4 14:50 Arm band placed on. sg 14:52 Triage completed. sg 16:18 Azucena Matthews, RN is Primary Nurse. tw2 16:18 Bed in low position. Call light in reach. tw2 16:24 Hermilo Carpio PA is PHCP. jr8 16:24 Joe Andrew MD is Attending Physician. jr8 16:48 Strep Sent. tw2 17:59 No provider procedures requiring assistance completed. Patient did not have IV access tw2 during this emergency room visit. Administered Medications: No medications were administered Outcome: 17:51 Discharge ordered by MD. jr8 17:59 Discharged to home ambulatory, with family. tw2 17:59 Condition: stable 17:59 Discharge instructions given to patient, family, Instructed on discharge instructions, follow up and referral plans. Demonstrated understanding of instructions, follow-up care. 17:59 Patient left the ED. tw2 Signatures: Kendall Caceres RN RN Hermilo Carpio PA PA jr8 Azucena Matthews RN RN tw2 Brijesh Antonioi rg4
--- NOTE | 2019-03-04 17:53 | EDPHYS ---
Physician Documentation [facility] Name: Cathi Zaldivar Age: 38 yrs Sex: Female : 1980 Arrival Date: 03/04/2019 Time: 14:36 Bed 6 Private MD: ED Physician Joe Andrew HPI: 03/04 16:54 This 38 yrs old Female presents to ER via Ambulatory with complaints of Sore jr8 Throat. 16:54 The patient presents with sore throat. The patient describes throat pain as raw. Onset: jr8 The symptoms/episode began/occurred acutely, yesterday. Severity of symptoms: At their worst the symptoms were mild, in the emergency department the symptoms are unchanged. Modifying factors: The symptoms are alleviated by nothing, the symptoms are aggravated by swallowing, The patient has had contact with sick sister. Associated signs and symptoms: The patient has no apparent associated signs or symptoms. The patient has not experienced similar symptoms in the past. The patient has not recently seen a physician. RN LVN: 16:58 LMP N/A - . tw2 Historical: - Allergies: 14:51 ambien; sg 14:51 Codeine; sg 14:51 Demerol; sg 14:51 Lisinopril; sg 14:51 Nitrofurantoin Macrocrystal; sg 14:51 PENICILLINS; sg 14:51 Prolixin; sg 16:20 Guaifenesin; tw2 16:20 zolpidem tartrate; tw2 - Home Meds: 14:51 doxazosin 4 mg Oral tab twice a day [Active]; sg 16:20 amlodipine 10 mg tab 1 tab once daily [Active]; divalproex 500 mg Oral TbEC once daily tw2 [Active]; gabapentin 100 mg Oral cap as needed [Active]; hydralazine 50 mg Oral tab [Active]; Lantus 100 unit/mL Sub-Q soln as needed [Active]; metoprolol tartrate 25 mg Oral tab 1 tab 2 times per day [Active]; Novolog 100 unit/mL Sub-Q soln [Active]; pravastatin Oral [Active]; sertraline 50 mg Oral tab [Active]; tramadol 50 mg Oral tab 1 tab PRN [Active]; Vitamin D3 5,000 unit Oral tab daily [Active]; Zofran (as hydrochloride) 4 mg Oral tab as needed [Active]; - PMHx: 14:51 chronic kidney disease; cyclic vomiting syndrome; Diabetes - NIDDM; ENCEPHALOPATHY; sg Gastroparesis; HD-TTHSat; liver failure; PERIPHERAL NEUROPATHY; - PSHx: 14:51 right arm fistula; sg - Immunization history:: Adult Immunizations not up to date. - Social history:: Smoking status: Patient uses tobacco products. - Ebola Screening: : Patient negative for fever greater than or equal to 101.5 degrees Fahrenheit, and additional compatible Ebola Virus Disease symptoms Patient denies exposure to infectious person Patient denies travel to an Ebola-affected area in the 21 days before illness onset No symptoms or risks identified at this time. ROS: 16:54 Eyes: Negative for injury, pain, redness, and discharge, Neck: Negative for injury, jr8 pain, and swelling, Cardiovascular: Negative for chest pain, palpitations, and edema, Respiratory: Negative for shortness of breath, cough, wheezing, and pleuritic chest pain, Abdomen/GI: Negative for abdominal pain, nausea, vomiting, diarrhea, and constipation, Back: Negative for injury and pain, MS/Extremity: Negative for injury and deformity, Skin: Negative for injury, rash, and discoloration, Neuro: Negative for headache, weakness, numbness, tingling, and seizure. 16:54 ENT: Positive for sore throat, Negative for drainage from ear(s), ear pain, rhinorrhea, sinus congestion, difficulty swallowing, difficulty handling secretions, hoarseness. Exam: 16:54 Eyes: Pupils equal round and reactive to light, extra-ocular motions intact. Lids and jr8 lashes normal. Conjunctiva and sclera are non-icteric and not injected. Cornea within normal limits. Periorbital areas with no swelling, redness, or edema. ENT: Nares patent. No nasal discharge, no septal abnormalities noted. Tympanic membranes are normal and external auditory canals are clear. Oropharynx with no redness, swelling, or masses, exudates, or evidence of obstruction, uvula midline. Mucous membranes moist. Neck: Trachea midline, no thyromegaly or masses palpated, and no cervical lymphadenopathy. Supple, full range of motion without nuchal rigidity, or vertebral point tenderness. No Meningismus. Cardiovascular: Regular rate and rhythm with a normal S1 and S2. No gallops, murmurs, or rubs. Normal PMI, no JVD. No pulse deficits. Respiratory: Lungs have equal breath sounds bilaterally, clear to auscultation and percussion. No rales, rhonchi or wheezes noted. No increased work of breathing, no retractions or nasal flaring. Abdomen/GI: Soft, non-tender, with normal bowel sounds. No distension or tympany. No guarding or rebound. No evidence of tenderness throughout. Back: No spinal tenderness. No costovertebral tenderness. Full range of motion. Skin: Warm, dry with normal turgor. Normal color with no rashes, no lesions, and no evidence of cellulitis. MS/ Extremity: Pulses equal, no cyanosis. Neurovascular intact. Full, normal range of motion. Neuro: Awake and alert, GCS 15, oriented to person, place, time, and situation. Cranial nerves II-XII grossly intact. Motor strength 5/5 in all extremities. Sensory grossly intact. Cerebellar exam normal. Normal gait. Vital Signs: 14:59 BP 110 / 66; Pulse 87; Resp 16; Temp 98.3; Pulse Ox 98% on R/A; Pain 0/10; sg 16:54 BP 136 / 69; Pulse 78; Resp 17; Temp 97.7(TE); Pulse Ox 96% on R/A; tw2 MDM: 16:24 Patient medically screened. rust 17:51 Data reviewed: vital signs, nurses notes, lab test result(s), and as a result, I will jr8 discharge patient. Data interpreted: Pulse oximetry: on room air is 96 %. Interpretation: normal. Counseling: I had a detailed discussion with the patient and/or guardian regarding: the historical points, exam findings, and any diagnostic results supporting the discharge/admit diagnosis, lab results, the need for outpatient follow up, a family practitioner, to return to the emergency department if symptoms worsen or persist or if there are any questions or concerns that arise at home. 03/04 16:28 Order name: Strep; Complete Time: 17:47 rust Administered Medications: No medications were administered Disposition: 03/04/19 17:51 Discharged to Home. Impression: Acute pharyngitis. - Condition is Stable. - Discharge Instructions: Pharyngitis. - Medication Reconciliation Form, Thank You Letter, Antibiotic Education, Prescription Opioid Use, Work release form form. - Follow up: Private Physician; When: 5 - 6 days; Reason: Recheck today's complaints, Continuance of care, Re-evaluation by your physician. - Problem is new. - Symptoms have improved. Addendum: 03/06/2019 09:39 Co-signature as Attending Physician, Joe Andrew MD I agree with the assessment and k dr plan of care. Signatures: Dispatcher [employer] EDMS Kendall Caceres, RN RN Joe Andrew MD MD [facility] Hermilo Carpio PA PA jr8 Azucena Matthews RN RN tw2 Corrections: (The following items were deleted from the chart) 03/04 17:59 17:51 03/04/2019 17:51 Discharged to Home. Impression: Acute pharyngitis. Condition is tw2 Stable. Forms are Work release form, Medication Reconciliation Form, Thank You Letter, Antibiotic Education, Prescription Opioid Use. Follow up: Private Physician; When: 5 - 6 days; Reason: Recheck today's complaints, Continuance of care, Re-evaluation by your physician. Problem is new. Symptoms have improved. jr8
[2019-03-04 20:48] VITALS: BP 136/69; TEMP 97.7; O2SAT 96
== END 2019-03-04 17:59 | disposition home or self-care (01) ==
LOC: ER 14:33
DX: J02.9 Acute pharyngitis, unspecified (principal); E11.22 Type 2 diabetes mellitus with diabetic chronic kidney disease; N18.6 End stage renal disease; K72.90 Hepatic failure, unspecified without coma; Z72.0 Tobacco use; Z79.4 Long term (current) use of insulin; Z88.5 Allergy status to narcotic agent; Z88.0 Allergy status to penicillin; Z88.8 Allergy status to other drugs, medicaments and biological substances; Z99.2 Dependence on renal dialysis
CPT/HCPCS: 87070; 87081; 99283

== ENCOUNTER 2019-04-22 06:31 | Emergency (ER) | payer OTHER ==
[2019-04-22] MEDS ORDERED: TRAMADOL HCL 50 MG TAB ONE (07:06)
[2019-04-22 07:54] LABS: Urine Bacteria <20 /HPF (<20); Urine Culture Reflex Order NOT NEEDED; Urine RBC <5 /HPF (NONE SEEN)
[2019-04-22 07:55] LABS: Absolute Lymphocytes (CBC) 0.7 K/uL (0.7-4.9); Basophils % 1.1 % (0-1.3); Hematocrit 31.7 % (36.0-45.0); Lymphocytes % 19.2 % (15.3-44.8); MPV 10.7 fL (7.6-11.3); RBC Red Blood Cell Count 3.51 M/uL (3.86-4.86)
[2019-04-22 08:16] LABS: Albumin 3.4 g/dL (3.4-5.0); Bilirubin Direct 0.2 mg/dL (0-0.2); Bilirubin Total 0.5 mg/dL (0.2-1.0); Protein, Total 7.2 g/dL (6.4-8.2)
[2019-04-22] MEDS ORDERED: OSELTAMIVIR 75 MG CAP ONE (08:58)
--- NOTE | 2019-04-22 09:04 | EDPHYS ---
Physician Documentation [facility] Name: Cathi Zaldivar Age: 38 yrs Sex: Female : 1980 Arrival Date: 04/22/2019 Time: 06:33 Bed 5 Private MD: DWIGHT Physician Luis Sandra HPI: 04/22 07:05 This 38 yrs old Female presents to ER via Ambulatory with complaints of Fever, pm1 Pain All Over, Chills. 07:05 The patient reports fever, not measured (subjective). Onset: The symptoms/episode pm1 began/occurred last night. Modifying factors: there are no obvious modifying factors. Associated signs and symptoms: Pertinent positives: chills, earache, headache, runny nose, sinus congestion, sore throat, body aches, runny nose, urinary frequency, Pertinent negatives: abdominal pain, chest pain, cough, diarrhea, nausea, skin rash, shortness of breath, vomiting. Severity of symptoms: in the emergency department the symptoms. The patient has experienced similar episodes in the past, a few times, today's symptoms are similar, to when the patient was apparently diagnosed with influenza. Patient has dialysis treatment today, TThSat . Historical: - Allergies: 06:59 ambien; jb4 06:59 Codeine; jb4 06:59 Demerol; jb4 06:59 GUAIFENESIN; jb4 06:59 Lisinopril; jb4 06:59 Nitrofurantoin Macrocrystal; jb4 06:59 PENICILLINS; jb4 06:59 Prolixin; jb4 06:59 zolpidem tartrate; jb4 - Home Meds: 06:59 amlodipine 10 mg tab 1 tab once daily [Active]; divalproex 500 mg Oral TbEC once daily jb4 [Active]; doxazosin 4 mg oral tab [Active]; gabapentin 100 mg Oral cap as needed [Active]; hydralazine 50 mg Oral tab [Active]; Lantus 100 unit/mL Sub-Q soln as needed [Active]; metoprolol tartrate 25 mg Oral tab 1 tab 2 times per day [Active]; Novolog 100 unit/mL Sub-Q soln [Active]; pravastatin Oral [Active]; sertraline 50 mg Oral tab [Active]; tramadol 50 mg Oral tab 1 tab PRN [Active]; Vitamin D3 5,000 unit Oral tab daily [Active]; Zofran (as hydrochloride) 4 mg Oral tab as needed [Active]; - PMHx: 06:59 chronic kidney disease; cyclic vomiting syndrome; Diabetes - NIDDM; ENCEPHALOPATHY; jb4 Gastroparesis; HD-TTHSat; liver failure; PERIPHERAL NEUROPATHY; - PSHx: 06:59 right arm fistula; jb4 - Immunization history:: Adult Immunizations up to date. - Social history:: Smoking status: Patient uses tobacco products, Patient/guardian denies using alcohol. - Ebola Screening: : No symptoms or risks identified at this time. Vital Signs: 06:46 BP 166 / 106; Pulse 89; Resp 18; Temp 99.4(O); Pulse Ox 100% on R/A; Weight 89.3 kg; ar5 Height 5 ft. 3 in. (160.02 cm); Pain 10/10; 09:12 BP 190 / 91; Pulse 81; Resp 16; Pulse Ox 98% on R/A; la1 06:46 Body Mass Index 34.87 (89.30 kg, 160.02 cm) ar5 MDM: 06:49 Patient medically screened. pm1 08:56 Data reviewed: vital signs. Data interpreted: Pulse oximetry: on room air is 100 %. pm1 Interpretation: normal. Counseling: I had a detailed discussion with the patient and/or guardian regarding: the historical points, exam findings, and any diagnostic results supporting the discharge/admit diagnosis, lab results, radiology results, the need for outpatient follow up, to return to the emergency department if symptoms worsen or persist or if there are any questions or concerns that arise at home. 04/22 06:56 Order name: Flu; Complete Time: 07:42 pm1 04/22 06:56 Order name: Strep; Complete Time: 07:31 pm1 04/22 06:56 Order name: Urine Microscopic Only; Complete Time: 08:06 pm1 04/22 07:31 Order name: Basic Metabolic Panel; Complete Time: 08:19 pm1 04/22 07:31 Order name: CBC with Diff pm1 04/22 07:31 Order name: Hepatic Function; Complete Time: 08:19 pm1 04/22 06:56 Order name: Urine Dipstick-Ancillary (obtain specimen); Complete Time: 07:10 pm1 04/22 07:31 Order name: Labs collected and sent; Complete Time: 07:50 pm1 04/22 07:31 Order name: Throat Culture EDCA 04/22 08:25 Order name: CBC Smear Scan EDCA Administered Medications: 07:10 Drug: traMADol 50 mg Route: PO; la1 09:10 Follow up: Response: No adverse reaction la1 09:11 Drug: Tamiflu 75 mg Route: PO; iw 09:13 Follow up: Response: No adverse reaction la1 Disposition: 04/22/19 09:03 Discharged to Home. Impression: Acute nasopharyngitis [common cold]. - Condition is Stable. - Discharge Instructions: Viral Respiratory Infection. - Prescriptions for Tamiflu 75 mg Oral Capsule - take 1 tablet by ORAL route every 12 hours for 5 days; 10 tablet. - Medication Reconciliation Form, Thank You Letter, Antibiotic Education, Prescription Opioid Use form. - Follow up: Emergency Department; When: As needed; Reason: Worsening of condition. Follow up: Private Physician; When: 2 - 3 days; Reason: Recheck today's complaints, Continuance of care, Re-evaluation by your physician. - Problem is new. - Symptoms have improved. Addendum: 04/24/2019 07:58 Co-signature as Attending Physician, Luis Sandra MD I agree with the assessment and c holman plan of care. Signatures: Dispatcher [employer] Luis Urban MD MD cha Williams, Irene, RN RN iw Osiel Barrera RN RN la1 Anand Gallo, DIRECTOR OF BLOOD DIRECTOR OF BLOOD pm1 Silverio Macias, RN RN jb4 Corrections: (The following items were deleted from the chart) 04/22 09:12 07:31 IV Saline Lock ordered. pm1 iw 09:13 09:03 04/22/2019 09:03 Discharged to Home. Impression: Acute nasopharyngitis [common la1 cold]. Condition is Stable. Forms are Medication Reconciliation Form, Thank You Letter, Antibiotic Education, Prescription Opioid Use. Follow up: Emergency Department; When: As needed; Reason: Worsening of condition. Follow up: Private Physician; When: 2 - 3 days; Reason: Recheck today's complaints, Continuance of care, Re-evaluation by your physician. Problem is new. Symptoms have improved. pm1
--- NOTE | 2019-04-22 09:04 | ER ---
Nurse's Notes [facility] Name: Cathi Zaldivar Age: 38 yrs Sex: Female : 1980 Arrival Date: 04/22/2019 Time: 06:33 Bed 5 Private MD: Diagnosis: Acute nasopharyngitis [common cold] Presentation: 04/22 06:54 Presenting complaint: Patient states: I started having fever in the middle of the night jb4 with body aches, chills and flu like symptoms, headache,aches all over and frequent urination. Transition of care: patient was not received from another setting of care. Onset of symptoms was April 22, 2019. Risk Assessment: Do you want to hurt yourself or someone else? Patient reports no desire to harm self or others. Initial Sepsis Screen: Does the patient meet any 2 criteria? No. Patient's initial sepsis screen is negative. Does the patient have a suspected source of infection? No. Patient's initial sepsis screen is negative. Care prior to arrival: None. 06:54 Method Of Arrival: Ambulatory jb4 06:54 Acuity: JESSICA 3 jb4 Historical: - Allergies: 06:59 ambien; jb4 06:59 Codeine; jb4 06:59 Demerol; jb4 06:59 GUAIFENESIN; jb4 06:59 Lisinopril; jb4 06:59 Nitrofurantoin Macrocrystal; jb4 06:59 PENICILLINS; jb4 06:59 Prolixin; jb4 06:59 zolpidem tartrate; jb4 - Home Meds: 06:59 amlodipine 10 mg tab 1 tab once daily [Active]; divalproex 500 mg Oral TbEC once daily jb4 [Active]; doxazosin 4 mg oral tab [Active]; gabapentin 100 mg Oral cap as needed [Active]; hydralazine 50 mg Oral tab [Active]; Lantus 100 unit/mL Sub-Q soln as needed [Active]; metoprolol tartrate 25 mg Oral tab 1 tab 2 times per day [Active]; Novolog 100 unit/mL Sub-Q soln [Active]; pravastatin Oral [Active]; sertraline 50 mg Oral tab [Active]; tramadol 50 mg Oral tab 1 tab PRN [Active]; Vitamin D3 5,000 unit Oral tab daily [Active]; Zofran (as hydrochloride) 4 mg Oral tab as needed [Active]; - PMHx: 06:59 chronic kidney disease; cyclic vomiting syndrome; Diabetes - NIDDM; ENCEPHALOPATHY; jb4 Gastroparesis; HD-TTHSat; liver failure; PERIPHERAL NEUROPATHY; - PSHx: 06:59 right arm fistula; jb4 - Immunization history:: Adult Immunizations up to date. - Social history:: Smoking status: Patient uses tobacco products, Patient/guardian denies using alcohol. - Ebola Screening: : No symptoms or risks identified at this time. Screenin:51 Abuse screen: Denies threats or abuse. Nutritional screening: No deficits noted. la1 Tuberculosis screening: No symptoms or risk factors identified. Fall Risk None identified. Assessment: 07:50 General: Appears in no apparent distress. Behavior is calm, cooperative. Pain: Denies la1 pain. Neuro: Level of Consciousness is awake, alert, obeys commands, Oriented to person, place, time, situation. Cardiovascular: Capillary refill < 3 seconds Patient's skin is warm and dry. Respiratory: Airway is patent Respiratory effort is even, unlabored, Respiratory pattern is regular, symmetrical, Breath sounds are clear bilaterally. GI: No signs and/or symptoms were reported involving the gastrointestinal system. : No signs and/or symptoms were reported regarding the genitourinary system. Musculoskeletal: Circulation, motion, and sensation intact. Capillary refill < 3 seconds, is brisk, in bilateral fingers. Range of motion: intact in all extremities. 09:12 Reassessment: Patient appears in no apparent distress at this time. No changes from la1 previously documented assessment. Patient and/or family updated on plan of care and expected duration. Pain level reassessed. Patient is alert, oriented x 3, equal unlabored respirations, skin warm/dry/pink. Pt leaving to go to dialysis at this time,ambulatory with steady gait, denies chest pain, denies KO. Vital Signs: 06:46 BP 166 / 106; Pulse 89; Resp 18; Temp 99.4(O); Pulse Ox 100% on R/A; Weight 89.3 kg; ar5 Height 5 ft. 3 in. (160.02 cm); Pain 10/10; 09:12 BP 190 / 91; Pulse 81; Resp 16; Pulse Ox 98% on R/A; la1 06:46 Body Mass Index 34.87 (89.30 kg, 160.02 cm) ar5 ED Course: 06:33 Patient arrived in ED. ds1 06:48 Anand Gallo NP is PHCP. pm1 06:48 Luis Sandra MD is Attending Physician. pm1 06:55 Triage completed. jb4 06:59 Arm band placed on right wrist. jb4 07:09 Osiel Barrera, RN is Primary Nurse. la1 07:51 Patient has correct armband on for positive identification. la1 07:51 Missed attempt(s): 22 gauge in left forearm. upper arm. la1 09:13 No provider procedures requiring assistance completed. Patient did not have IV access la1 during this emergency room visit. Administered Medications: 07:10 Drug: traMADol 50 mg Route: PO; la1 09:10 Follow up: Response: No adverse reaction la1 09:11 Drug: Tamiflu 75 mg Route: PO; iw 09:13 Follow up: Response: No adverse reaction la1 Outcome: 09:03 Discharge ordered by . pm1 09:13 Discharged to home ambulatory. la1 09:13 Condition: stable 09:13 Discharge instructions given to patient, Instructed on discharge instructions, follow up and referral plans. medication usage, Demonstrated understanding of instructions, follow-up care, medications, Prescriptions given X 1. 09:13 Patient left the ED. la1 Signatures: Tabby Roa ds1 Corinne Easton RN RN iw Osiel Barrera RN RN la1 Anand Gallo NP STOCKKEEPER pm1 Silverio Macias RN RN jb4 Robles, Autumn ar5
[2019-04-22 09:29] VITALS: TEMP 99.4
[2019-04-22 09:31] VITALS: BP 190/91; O2SAT 98
[2019-04-22 10:19] LABS: Platelet Estimate DECR; Urine White Blood Cell Casts OK
[2019-04-22 10:20] LABS: Anisocytosis 1+; Blood Morphology Comment NOTED (NOT SEEN); Macrocytosis 1+; Platelets, Giant FEW
== END 2019-04-22 09:13 | disposition home or self-care (01) ==
LOC: ER 06:31
DX: J00 Acute nasopharyngitis [common cold] (principal); Z88.6 Allergy status to analgesic agent; Z88.0 Allergy status to penicillin; Z88.8 Allergy status to other drugs, medicaments and biological substances; E11.9 Type 2 diabetes mellitus without complications; N18.9 Chronic kidney disease, unspecified; G62.9 Polyneuropathy, unspecified; Z72.0 Tobacco use
CPT/HCPCS: 36415; 80048; 80076; 81015; 85025; 87040; 87070; 87081; 87804; 99283

== ENCOUNTER 2019-04-25 13:12 | Emergency (ER) | payer OTHER ==
[2019-04-25] MEDS ORDERED: HYDROCODONE/CHLORPHEN 5 ML/OSYR ONE (14:14)
[2019-04-25] MEDS ORDERED: cloNIDine HCl 0.1 MG TAB ONE (16:12)
--- NOTE | 2019-04-25 16:23 | ER ---
Nurse's Notes [facility] Name: Cathi Zaldivar Age: 38 yrs Sex: Female : 1980 Arrival Date: 04/25/2019 Time: 13:15 Bed 24 Private MD: Partha Abraham Diagnosis: Cough Presentation: 04/25 13:34 Presenting complaint: Patient states: i was treated here last sat for Flu but i was mg2 negative for both strep and flu. they gave me tamiflu. yesterday i started coughing and my chest and back hurts and montse been vomiting too. i had my dialysis today. Transition of care: patient was not received from another setting of care. Onset of symptoms was April 24, 2019. Risk Assessment: Do you want to hurt yourself or someone else? Patient reports no desire to harm self or others. Initial Sepsis Screen: Does the patient meet any 2 criteria? No. Patient's initial sepsis screen is negative. Does the patient have a suspected source of infection? No. Patient's initial sepsis screen is negative. Care prior to arrival: None. 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 mg2 Historical: - Allergies: 13:39 ambien; mg2 13:39 Codeine; mg2 13:39 Demerol; mg2 13:39 GUAIFENESIN; mg2 13:39 Lisinopril; mg2 13:39 Nitrofurantoin Macrocrystal; mg2 13:39 PENICILLINS; mg2 13:39 Prolixin; mg2 13:39 zolpidem tartrate; mg2 - Home Meds: 14:29 amlodipine 10 mg tab 1 tab once daily [Active]; divalproex 500 mg Oral TbEC once daily mg2 [Active]; doxazosin 4 mg Oral tab [Active]; gabapentin 100 mg Oral cap as needed [Active]; hydralazine 50 mg Oral tab [Active]; Lantus 100 unit/mL Sub-Q soln as needed [Active]; metoprolol tartrate 25 mg Oral tab 1 tab 2 times per day [Active]; Novolog 100 unit/mL Sub-Q soln [Active]; pravastatin Oral [Active]; sertraline 50 mg Oral tab [Active]; tramadol 50 mg Oral tab 1 tab PRN [Active]; Vitamin D3 5,000 unit Oral tab daily [Active]; Zofran (as hydrochloride) 4 mg Oral tab as needed [Active]; - PMHx: 14:29 chronic kidney disease; cyclic vomiting syndrome; Diabetes - NIDDM; ENCEPHALOPATHY; mg2 Gastroparesis; HD-TTHSat; liver failure; PERIPHERAL NEUROPATHY; - PSHx: 14:29 left eye surgery; Tubal ligation; ; mg2 - Social history:: Smoking status: Patient uses tobacco products, 2 sticks a day, Patient/guardian denies using alcohol, street drugs, IV drugs. - Ebola Screening: : No symptoms or risks identified at this time. Screenin:20 Abuse screen: Denies threats or abuse. Denies injuries from another. Nutritional mg2 screening: No deficits noted. Tuberculosis screening: No symptoms or risk factors identified. Fall Risk None identified. Assessment: 14:19 General: Appears in no apparent distress. comfortable, Behavior is calm, cooperative. mg2 Pain: Complains of pain in chest and back. Neuro: Level of Consciousness is awake, alert, obeys commands, Oriented to person, place, time, situation. Cardiovascular: Capillary refill < 3 seconds Patient's skin is warm and dry. Respiratory: Reports cough that is. GI: Reports vomiting. : No signs and/or symptoms were reported regarding the genitourinary system. EENT: No signs and/or symptoms were reported regarding the EENT system. Derm: Skin is intact, is healthy with good turgor, Skin is pink, warm \T\ dry. normal. Musculoskeletal: Circulation, motion, and sensation intact. Capillary refill < 3 seconds. Vital Signs: 13:36 BP 154 / 90; Pulse 81; Resp 18; Temp 98.8; Pulse Ox 100% on R/A; Weight 88 kg; Height 5 mg2 ft. 3 in. (160.02 cm); 15:00 BP 189 / 87; Pulse 66; Resp 18; Pulse Ox 100% on R/A; mg2 16:12 BP 220 / 104; Pulse 67; Resp 18; Pulse Ox 100% on R/A; mg2 17:10 BP 200 / 88; Pulse 69; Resp 18; Temp 98; Pulse Ox 100% on R/A; mg2 13:36 Body Mass Index 34.37 (88.00 kg, 160.02 cm) mg2 ED Course: 13:15 Patient arrived in ED. mr 13:15 Partha Abraham MD is Private Physician. mr 13:26 Richi Bernal, RN is Primary Nurse. mg2 13:36 Triage completed. mg2 13:43 [facility] kb 13:43 Joe Andrew MD is Attending Physician. kb 14:21 Patient has correct armband on for positive identification. Pulse ox on. NIBP on. Door mg2 closed. Warm blanket given. 14:21 Arm band placed on. mg2 14:21 No provider procedures requiring assistance completed. Patient did not have IV access mg2 during this emergency room visit. 15:02 Chest Pa And Lat (2 Views) XRAY In Process Unspecified. EDMS Administered Medications: 14:16 Drug: Tussionex Pennkinetic ER 5 ml Route: PO; mg2 15:45 Follow up: Response: No adverse reaction; Marked relief of symptoms mg2 16:13 Drug: cloNIDine 0.1 mg Route: PO; mg2 17:09 Follow up: Response: No adverse reaction; Blood pressure is lowered mg2 Outcome: 16:22 Discharge ordered by MD. kb 17:10 Discharged to home ambulatory. mg2 17:10 Condition: stable 17:10 Discharge instructions given to patient, Instructed on discharge instructions, follow up and referral plans. medication usage, Demonstrated understanding of instructions, follow-up care, medications, Prescriptions given X 1. 17:11 Patient left the ED. mg2 Signatures: Dispatcher [employer] EDMS Milvia Sanders FNP-C FNP-Jeremy EricAdela mr Richi Bernal, RN RN mg2
--- NOTE | 2019-04-25 16:23 | EDPHYS ---
Physician Documentation [facility] Name: Cathi Zaldivar Age: 38 yrs Sex: Female : 1980 Arrival Date: 04/25/2019 Time: 13:15 Bed 24 Private MD: Partha Abraham ED Physician Joe Andrew HPI: 04/25 16:21 This 38 yrs old Female presents to ER via Ambulatory with complaints of Cough, kb Back Pain. 16:21 The patient or guardian reports cough, that is intermittent, described as mild, kb described as moderate. Onset: The symptoms/episode began/occurred 2 day(s) ago. Severity of symptoms: At their worst the symptoms were moderate, in the emergency department the symptoms are unchanged. Modifying factors: The symptoms are alleviated by nothing, the symptoms are aggravated by nothing. Associated signs and symptoms: Pertinent positives: chest pain, with cough, with movement, with breathing, Pertinent negatives: diarrhea, ear ache, fever, nausea, rhinorrhea, sore throat, vomiting. The patient has not experienced similar symptoms in the past. The patient has not recently seen a physician. 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 mg2 Historical: - Allergies: 13:39 ambien; mg2 13:39 Codeine; mg2 13:39 Demerol; mg2 13:39 GUAIFENESIN; mg2 13:39 Lisinopril; mg2 13:39 Nitrofurantoin Macrocrystal; mg2 13:39 PENICILLINS; mg2 13:39 Prolixin; mg2 13:39 zolpidem tartrate; mg2 - Home Meds: 14:29 amlodipine 10 mg tab 1 tab once daily [Active]; divalproex 500 mg Oral TbEC once daily mg2 [Active]; doxazosin 4 mg Oral tab [Active]; gabapentin 100 mg Oral cap as needed [Active]; hydralazine 50 mg Oral tab [Active]; Lantus 100 unit/mL Sub-Q soln as needed [Active]; metoprolol tartrate 25 mg Oral tab 1 tab 2 times per day [Active]; Novolog 100 unit/mL Sub-Q soln [Active]; pravastatin Oral [Active]; sertraline 50 mg Oral tab [Active]; tramadol 50 mg Oral tab 1 tab PRN [Active]; Vitamin D3 5,000 unit Oral tab daily [Active]; Zofran (as hydrochloride) 4 mg Oral tab as needed [Active]; - PMHx: 14:29 chronic kidney disease; cyclic vomiting syndrome; Diabetes - NIDDM; ENCEPHALOPATHY; mg2 Gastroparesis; HD-TTHSat; liver failure; PERIPHERAL NEUROPATHY; - PSHx: 14:29 left eye surgery; Tubal ligation; ; mg2 - Social history:: Smoking status: Patient uses tobacco products, 2 sticks a day, Patient/guardian denies using alcohol, street drugs, IV drugs. - Ebola Screening: : No symptoms or risks identified at this time. ROS: 16:06 Constitutional: Negative for fever, chills, and weight loss, ENT: Negative for injury, kb pain, and discharge, Neck: Negative for injury, pain, and swelling, Abdomen/GI: Negative for abdominal pain, nausea, vomiting, diarrhea, and constipation, Back: Negative for injury and pain, : Negative for injury, bleeding, discharge, and swelling, MS/Extremity: Negative for injury and deformity, Skin: Negative for injury, rash, and discoloration, Neuro: Negative for headache, weakness, numbness, tingling, and seizure. 16:06 Cardiovascular: Positive for chest pain, with cough, with movement, of the left lateral posterior chest and left lateral anterior chest. 16:06 Respiratory: Positive for cough. Exam: 16:20 Constitutional: This is a well developed, well nourished patient who is awake, alert, kb and in no acute distress. Head/Face: Normocephalic, atraumatic. ENT: Nares patent. No nasal discharge, no septal abnormalities noted. Tympanic membranes are normal and external auditory canals are clear. Oropharynx with no redness, swelling, or masses, exudates, or evidence of obstruction, uvula midline. Mucous membranes moist. Neck: Trachea midline, no thyromegaly or masses palpated, and no cervical lymphadenopathy. Supple, full range of motion without nuchal rigidity, or vertebral point tenderness. No Meningismus. Chest/axilla: Normal chest wall appearance and motion. Nontender with no deformity. No lesions are appreciated. Cardiovascular: Regular rate and rhythm with a normal S1 and S2. No gallops, murmurs, or rubs. Normal PMI, no JVD. No pulse deficits. Respiratory: Lungs have equal breath sounds bilaterally, clear to auscultation and percussion. No rales, rhonchi or wheezes noted. No increased work of breathing, no retractions or nasal flaring. Abdomen/GI: Soft, non-tender, with normal bowel sounds. No distension or tympany. No guarding or rebound. No evidence of tenderness throughout. Skin: Warm, dry with normal turgor. Normal color with no rashes, no lesions, and no evidence of cellulitis. MS/ Extremity: Pulses equal, no cyanosis. Neurovascular intact. Full, normal range of motion. Neuro: Awake and alert, GCS 15, oriented to person, place, time, and situation. Cranial nerves II-XII grossly intact. Motor strength 5/5 in all extremities. Sensory grossly intact. Cerebellar exam normal. Normal gait. Vital Signs: 13:36 BP 154 / 90; Pulse 81; Resp 18; Temp 98.8; Pulse Ox 100% on R/A; Weight 88 kg; Height 5 mg2 ft. 3 in. (160.02 cm); 15:00 BP 189 / 87; Pulse 66; Resp 18; Pulse Ox 100% on R/A; mg2 16:12 BP 220 / 104; Pulse 67; Resp 18; Pulse Ox 100% on R/A; mg2 17:10 BP 200 / 88; Pulse 69; Resp 18; Temp 98; Pulse Ox 100% on R/A; mg2 13:36 Body Mass Index 34.37 (88.00 kg, 160.02 cm) mg2 MDM: 13:41 Patient medically screened. mo 16:06 Data reviewed: vital signs, nurses notes. Data interpreted: Pulse oximetry: on room air kb is 100 %. Interpretation: normal. Counseling: I had a detailed discussion with the patient and/or guardian regarding: the historical points, exam findings, and any diagnostic results supporting the discharge/admit diagnosis, radiology results, the need for outpatient follow up, a family practitioner, to return to the emergency department if symptoms worsen or persist or if there are any questions or concerns that arise at home. 04/25 13:47 Order name: Chest Pa And Lat (2 Views) XRAY; Complete Time: 16:54 kb Administered Medications: 14:16 Drug: Tussionex Pennkinetic ER 5 ml Route: PO; mg2 15:45 Follow up: Response: No adverse reaction; Marked relief of symptoms mg2 16:13 Drug: cloNIDine 0.1 mg Route: PO; mg2 17:09 Follow up: Response: No adverse reaction; Blood pressure is lowered mg2 Disposition: 04/26 07:16 Co-signature as Attending Physician, Joe Andrew MD I agree with the assessment and kdr plan of care. Disposition: 04/25/19 16:22 Discharged to Home. Impression: Cough. - Condition is Stable. - Discharge Instructions: Costochondritis, [id number], Cough, Adult, [id number]. - Prescriptions for Tessalon Perles 100 mg Oral Capsule - take 1 capsule by ORAL route every 8 hours As needed; 15 capsule. - Medication Reconciliation Form, Thank You Letter, Antibiotic Education, Prescription Opioid Use form. - Follow up: Emergency Department; When: As needed; Reason: Worsening of condition. Follow up: Private Physician; When: 2 - 3 days; Reason: Recheck today's complaints, Continuance of care, Re-evaluation by your physician. Signatures: Dispatcher [employer] EDMS Milvia Sanders, ANDROID UI DEVELOPER-C ANDROID UI DEVELOPER-Ckb Joe Andrew MD MD [facility] Esa Lakhani MD MD wa Gardose, Michele, RN RN mg2 Corrections: (The following items were deleted from the chart) 04/25 17:11 16:22 04/25/2019 16:22 Discharged to Home. Impression: Cough. Condition is Stable. mg2 Forms are Medication Reconciliation Form, Thank You Letter, Antibiotic Education, Prescription Opioid Use. Follow up: Emergency Department; When: As needed; Reason: Worsening of condition. Follow up: Private Physician; When: 2 - 3 days; Reason: Recheck today's complaints, Continuance of care, Re-evaluation by your physician. kb
--- NOTE | 2019-04-25 16:49 | RAD REPORT ---
EXAM DESCRIPTION: RAD - Chest Pa And Lat (2 Views) - 04/25/2019 3:00 pm CLINICAL HISTORY: Cough;Congestion COMPARISON: October 2017 TECHNIQUE: PA and lateral views of the chest were obtained. FINDINGS: The lungs are clear. Right-sided dialysis catheter has been removed since prior imaging. Heart size is normal and central vasculature is within normal limits. No pleural effusion or pneumot horax seen. No acute bony finding noted. No aortic abnormality. IMPRESSION: No acute cardiopulmonary process.
[2019-04-25 18:13] VITALS: O2SAT 100
[2019-04-25 18:17] VITALS: BP 200/88; TEMP 98
--- OUTSIDE RECORDS SUMMARY | 2019-04-30 23:43 | XMS REPORT ---
:1980 [facility] Address [address] [place] [address] Care Team Providers Name Role Phone DANELLE [...] Range Comments HERPES VIRUS IGM (BEAKER) (test utkm=2392) Negative SEE ATTACHMENT BLOOD [id number] 06:00:00 Test Item Value Reference Range Comments CULTURE (BEAKER) (test ovwi=6853) No growth in 5 days BLOOD [id number] 06:00:00 Test Item Value Reference Range Comments CULTURE (BEAKER) (test dhwg=4797) No growth in 5 days POCT-GLUCOSE [id number] 12:11:00 Test Item Value Reference Range Comments POC-GLUCOSE METER (BEAKER) 154 mg/dL 70-110 TESTED AT [address] (test xsrk=0049) [facility] [address] POCT-GLUCOSE [id number] 07:53:00 Test Item Value Reference Range Comments POC-GLUCOSE METER (BEAKER) 87 mg/dL 70-110 TESTED AT [address] (test ccvf=0069) [facility] [address] POCT-GLUCOSE [id number] 06:49:00 Test Item Value Reference Range Comments POC-GLUCOSE METER (BEAKER) 79 mg/dL 70-110 TESTED AT [address] (test akju=2313) [facility] [address] COMPREHENSIVE METABOLIC [id number] 06:15:00 Test Item Value Reference Range Comments TOTAL PROTEIN (BEAKER) 5.1 gm/dL 6.0-8.3 (test nssg=339) ALBUMIN (BEAKER) (test 2.2 g/dL 3.5-5.0 gopk=7155) ALKALINE PHOSPHATASE 78 U/L 40-150 (BEAKER) (test mycn=750) BILIRUBIN TOTAL (BEAKER) 1.1 mg/dL 0.2-1.2 (test effi=571) SODIUM (BEAKER) (test 142 meq/L 136-145 ljtd=541) POTASSIUM (BEAKER) (test 3.6 meq/L 3.5-5.1 qjtm=975) CHLORIDE (BEAKER) (test 106 meq/L 98-107 qjxx=859) CO2 (BEAKER) (test 27 meq/L 22-29 voiv=045) BLOOD UREA NITROGEN 29 mg/dL 7-21 (BEAKER) (test phdv=879) CREATININE (BEAKER) (test 2.70 mg/dL 0.57-1.25 cdmr=306) GLUCOSE RANDOM (BEAKER) 79 mg/dL 70-105 (test aber=278) CALCIUM (BEAKER) (test 8.2 mg/dL 8.4-10.2 dlzi=201) AST (SGOT) (BEAKER) (test 256 U/L 5-34 wiov=085) ALT (SGPT) (BEAKER) (test 513 U/L 6-55 ghno=930) EGFR (BEAKER) (test 20 mL/min/1.73 sq m ESTIMATED GFR IS NOT pmor=1995) ACCURATE CREATININE CLEARANCE IN PREDICTING GLOMERULAR FILTRATION RATE. ESTIMATED GFR IS NOT APPLICABLE FOR DIALYSIS PATIENTS. [id number] 06:11:00 Test Item Value Reference Range Comments MAGNESIUM (BEAKER) (test ibme=633) 2.1 mg/dL 1.6-2.6 HEPATIC FUNCTION [id number] 06:11:00 Test Item Value Reference Range Comments TOTAL PROTEIN (BEAKER) (test eoym=694) 5.1 gm/dL 6.0-8.3 ALBUMIN (BEAKER) (test nwtu=8600) 2.2 g/dL 3.5-5.0 BILIRUBIN TOTAL (BEAKER) (test fnmz=243) 1.1 mg/dL 0.2-1.2 BILIRUBIN DIRECT (BEAKER) (test jxrf=208) 0.7 mg/dL 0.1-0.5 ALKALINE PHOSPHATASE (BEAKER) (test iamb=341) 78 U/L 40-150 AST (SGOT) (BEAKER) (test ernl=041) 256 U/L 5-34 ALT (SGPT) (BEAKER) (test bism=721) 513 U/L 6-55 [id number] 05:30:00 Test Item Value Reference Range Comments FIBRINOGEN LEVEL (BEAKER) (test rjie=152) 368 mg/dl 225-434 [id number] 05:30:00 Test Item Value Reference Range Comments PARTIAL THROMBOPLASTIN TIME (BEAKER) (test 42.2 seconds 22.5-36.0 ahqe=489) PROTHROMBIN [id number] 05:29:00 Test Item Value Reference Range Comments PROTIME (BEAKER) (test zfxs=930) 14.8 seconds 11.7-14.7 INR (BEAKER) (test wmso=841) 1.2 <=5.9 RECOMMENDED COUMADIN/WARFARIN INR THERAPY RANGESSTANDARD DOSE: 2.0 - 3.0 Includes: PROPHYLAXIS forvenous thrombosis, systemic embolization; TREATMENT for venous thrombosis and/or pulmonary embolus.HIGH RISK: Target INR is 2.5-3.5 for patients with mechanical heart valves.POCT-GLUCOSE [id number] 21:09:00 Test Item Value Reference Range Comments POC-GLUCOSE METER (BEAKER) 178 mg/dL 70-110 TESTED AT [address] (test lkcq=6784) [place] [address] POCT-GLUCOSE [id number] 17:18:00 Test Item Value Reference Range Comments POC-GLUCOSE METER (BEAKER) 178 mg/dL 70-110 TESTED AT [address] (test sqbx=0284) [place] [address] POCT-GLUCOSE [id number] 13:48:00 Test Item Value Reference Range Comments POC-GLUCOSE METER (BEAKER) 150 mg/dL 70-110 TESTED AT [address] (test ftmd=0049) [place] [address] FACTOR 5 ACTIVITY (BLEEDING RISK)2017-01-06 10:04:00 Test Item Value Reference Range Comments FACTOR V ACTIVITY (BEAKER) (test ziki=313) 90.0 % 60.0-150.0 Effective 10/24/2013: Reference Range Change-Adult onlyNew: 60.0-150.0 Previous : 50.0-150.0CYTOMEGALOVIRUS ANTIBODY, [id number] 09:42:00 Test Item Value Reference Range Comments CYTOMEGALOVIRUS IGM ANTIBODY (BEAKER) (test Negative cyka=632) HERPES VIRUS ANTIBODY, [id number] 08:59:00 Test Item Value Reference Range Comments 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 (test whoe=2146) [facility] [address] COMPREHENSIVE METABOLIC [id number] 06:23:00 Test Item Value Reference Range Comments TOTAL PROTEIN (BEAKER) 5.3 gm/dL 6.0-8.3 (test ypuu=812) ALBUMIN (BEAKER) (test 2.4 g/dL 3.5-5.0 ltbu=0061) ALKALINE PHOSPHATASE 85 U/L 40-150 (BEAKER) (test vnde=869) BILIRUBIN TOTAL (BEAKER) 1.5 mg/dL 0.2-1.2 (test pnyg=876) SODIUM (BEAKER) (test 142 meq/L 136-145 tweu=181) POTASSIUM (BEAKER) (test 3.5 meq/L 3.5-5.1 ogex=487) CHLORIDE (BEAKER) (test 103 meq/L 98-107 xvga=447) CO2 (BEAKER) (test 27 meq/L 22-29 zsrg=892) BLOOD UREA NITROGEN 30 mg/dL 7-21 (BEAKER) (test etrm=378) CREATININE (BEAKER) (test 3.00 mg/dL 0.57-1.25 reeo=020) GLUCOSE RANDOM (BEAKER) 99 mg/dL 70-105 (test ytel=654) CALCIUM (BEAKER) (test 8.7 mg/dL 8.4-10.2 hkio=661) AST (SGOT) (BEAKER) (test 364 U/L 5-34 qlnp=506) ALT (SGPT) (BEAKER) (test 779 U/L 6-55 jjmo=043) EGFR (BEAKER) (test 18 mL/min/1.73 sq m ESTIMATED GFR IS NOT qgwu=2457) ACCURATE CREATININE CLEARANCE IN PREDICTING GLOMERULAR FILTRATION RATE. ESTIMATED GFR IS NOT APPLICABLE FOR DIALYSIS PATIENTS. [id number] 06:17:00 Test Item Value Reference Range Comments MAGNESIUM (BEAKER) (test oevl=401) 1.8 mg/dL 1.6-2.6 HEPATIC FUNCTION [id number] 06:17:00 Test Item Value Reference Range Comments TOTAL PROTEIN (BEAKER) (test zkpw=642) 5.3 gm/dL 6.0-8.3 ALBUMIN (BEAKER) (test zbty=4361) 2.4 g/dL 3.5-5.0 BILIRUBIN TOTAL (BEAKER) (test uabn=683) 1.5 mg/dL 0.2-1.2 BILIRUBIN DIRECT (BEAKER) (test swlx=244) 1.0 mg/dL 0.1-0.5 ALKALINE PHOSPHATASE (BEAKER) (test rgst=566) 85 U/L 40-150 AST (SGOT) (BEAKER) (test uloi=901) 364 U/L 5-34 ALT (SGPT) (BEAKER) (test asmm=413) 779 U/L 6-55 [id number] 06:00:00 Test Item Value Reference Range Comments FIBRINOGEN LEVEL (BEAKER) (test wjse=110) 390 mg/dl 225-434 [id number] 06:00:00 Test Item Value Reference Range Comments PARTIAL THROMBOPLASTIN TIME (BEAKER) (test 40.2 seconds 22.5-36.0 oync=440) PROTHROMBIN [id number] 05:59:00 Test Item Value Reference Range Comments PROTIME (BEAKER) (test rgov=290) 14.6 seconds 11.7-14.7 INR (BEAKER) (test pcwz=700) 1.2 <=5.9 RECOMMENDED COUMADIN/WARFARIN INR THERAPY RANGESSTANDARD DOSE: 2.0 - 3.0 Includes: PROPHYLAXIS forvenous thrombosis, systemic embolization; TREATMENT for venous thrombosis and/or pulmonary embolus.HIGH RISK: Target INR is 2.5-3.5 for patients with mechanical heart valves.POCT-GLUCOSE [id number] 21:46:00 Test Item Value Reference Range Comments POC-GLUCOSE METER (BEAKER) 153 mg/dL 70-110 TESTED AT [address] (test intj=3360) [facility] [address] POCT-GLUCOSE [id number] 18:47:00 Test Item Value Reference Range Comments POC-GLUCOSE METER (BEAKER) 181 mg/dL 70-110 TESTED AT [address] (test tzhp=3502) [place] [address] POCT-GLUCOSE [id number] 12:40:00 Test Item Value Reference Range Comments POC-GLUCOSE METER (BEAKER) 178 mg/dL 70-110 TESTED AT [address] (test uoko=3818) [place] [address] POCT-GLUCOSE [id number] 07:51:00 Test Item Value Reference Range Comments POC-GLUCOSE METER (BEAKER) 166 mg/dL 70-110 TESTED AT [address] (test psuy=8239) [place] [address] COMPREHENSIVE METABOLIC [id number] 03:26:00 Test Item Value Reference Range Comments TOTAL PROTEIN (BEAKER) 5.2 gm/dL 6.0-8.3 (test zyhu=761) ALBUMIN (BEAKER) (test 2.3 g/dL 3.5-5.0 sqin=2463) ALKALINE PHOSPHATASE 72 U/L 40-150 (BEAKER) (test gqaw=612) BILIRUBIN TOTAL (BEAKER) 2.0 mg/dL 0.2-1.2 (test xrdi=829) SODIUM (BEAKER) (test 140 meq/L 136-145 prua=698) POTASSIUM (BEAKER) (test 3.3 meq/L 3.5-5.1 owhw=720) CHLORIDE (BEAKER) (test 99 meq/L 98-107 fmlt=869) CO2 (BEAKER) (test 29 meq/L 22-29 xwaw=427) BLOOD UREA NITROGEN 35 mg/dL 7-21 (BEAKER) (test cant=550) CREATININE (BEAKER) (test 3.44 mg/dL 0.57-1.25 fihm=650) GLUCOSE RANDOM (BEAKER) 151 mg/dL 70-105 (test cdeo=804) CALCIUM (BEAKER) (test 8.6 mg/dL 8.4-10.2 zytn=030) AST (SGOT) (BEAKER) (test 506 U/L 5-34 exbk=566) ALT (SGPT) (BEAKER) (test 1009 U/L 6-55 nvvp=488) EGFR (BEAKER) (test 15 mL/min/1.73 sq m ESTIMATED GFR IS NOT pnov=4010) ACCURATE CREATININE CLEARANCE IN PREDICTING GLOMERULAR FILTRATION RATE. ESTIMATED GFR IS NOT APPLICABLE FOR DIALYSIS PATIENTS. [id number] 03:22:00 Test Item Value Reference Range Comments MAGNESIUM (BEAKER) (test mesp=510) 1.4 mg/dL 1.6-2.6 HEPATIC FUNCTION [id number] 03:22:00 Test Item Value Reference Range Comments TOTAL PROTEIN (BEAKER) (test iyzj=790) 5.2 gm/dL 6.0-8.3 ALBUMIN (BEAKER) (test vgme=0810) 2.3 g/dL 3.5-5.0 BILIRUBIN TOTAL (BEAKER) (test ngct=399) 2.0 mg/dL 0.2-1.2 BILIRUBIN DIRECT (BEAKER) (test eziy=239) 1.3 mg/dL 0.1-0.5 ALKALINE PHOSPHATASE (BEAKER) (test moth=334) 72 U/L 40-150 AST (SGOT) (BEAKER) (test jkrm=009) 506 U/L 5-34 ALT (SGPT) (BEAKER) (test jlqy=166) 1009 U/L 6-55 [id number] 03:12:00 Test Item Value Reference Range Comments AMMONIA (BEAKER) (test dsyh=919) 29 mol/L 18-72 [id number] 03:10:00 Test Item Value Reference Range Comments PARTIAL THROMBOPLASTIN TIME (BEAKER) (test 42.3 seconds 22.5-36.0 yknp=612) PROTHROMBIN [id number] 03:09:00 Test Item Value Reference Range Comments PROTIME (BEAKER) (test qhhq=290) 16.4 seconds 11.7-14.7 INR (BEAKER) (test lnzw=842) 1.3 <=5.9 RECOMMENDED COUMADIN/WARFARIN INR THERAPY RANGESSTANDARD DOSE: 2.0 - 3.0 Includes: PROPHYLAXIS forvenous thrombosis, systemic embolization; TREATMENT for venous thrombosis and/or pulmonary embolus.HIGH RISK: Target INR is 2.5-3.5 for patients with mechanical heart valves.[id number] 03:09:00 Test Item Value Reference Range Comments FIBRINOGEN LEVEL (BEAKER) (test giag=264) 413 mg/dl 225-434 CBC W/PLT COUNT & AUTO [id number] 03:09:00 Test Item Value Reference Range Comments WHITE BLOOD CELL COUNT (BEAKER) (test qnfc=112) 2.9 K/ L 4.0-10.0 RED BLOOD CELL COUNT (BEAKER) (test djnk=023) 3.10 M/ L 4.00-5.00 HEMOGLOBIN (BEAKER) (test dghb=109) 9.5 GM/DL 12.0-15.0 HEMATOCRIT (BEAKER) (test ghzt=532) 29.2 % 36.0-45.0 MEAN CORPUSCULAR VOLUME (BEAKER) (test utpl=480) 94.4 fL 82.0-99.0 MEAN CORPUSCULAR HEMOGLOBIN (BEAKER) (test 30.8 pg 27.0-33.0 pvwj=316) MEAN CORPUSCULAR HEMOGLOBIN CONC (BEAKER) (test 32.6 GM/DL 32.0-36.0 shrv=063) RED CELL DISTRIBUTION WIDTH (BEAKER) (test 15.2 % 10.3-14.2 pqrc=900) PLATELET COUNT (BEAKER) (test bbat=560) 118 K/CU MM 150-430 MEAN PLATELET VOLUME (BEAKER) (test doub=910) 9.2 fL 6.5-10.5 NUCLEATED RED BLOOD CELLS (BEAKER) (test 0 /100 WBC 0-0 edcz=473) NEUTROPHILS RELATIVE PERCENT (BEAKER) (test 59 % uhbb=270) LYMPHOCYTES RELATIVE PERCENT (BEAKER) (test 27 % echf=078) MONOCYTES RELATIVE PERCENT (BEAKER) (test 10 % nuka=418) EOSINOPHILS RELATIVE PERCENT (BEAKER) (test 4 % dzyw=014) BASOPHILS RELATIVE PERCENT (BEAKER) (test 1 % onkq=914) NEUTROPHILS ABSOLUTE COUNT (BEAKER) (test 1.71 K/ L 1.80-8.00 zxrv=032) LYMPHOCYTES ABSOLUTE COUNT (BEAKER) (test 0.78 K/ L 1.48-4.50 eyax=825) MONOCYTES ABSOLUTE COUNT (BEAKER) (test 0.29 K/ L 0.00-1.30 ybux=176) EOSINOPHILS ABSOLUTE COUNT (BEAKER) (test 0.11 K/ L 0.00-0.50 scom=834) BASOPHILS ABSOLUTE COUNT (BEAKER) (test 0.02 K/ L 0.00-0.20 hznd=061) 0.00POCT-GLUCOSE [id number] 22:33:00 Test Item Value Reference Range Comments POC-GLUCOSE METER (BEAKER) 230 mg/dL 70-110 TESTED AT [address] (test idcx=2515) [place] [address] POCT-GLUCOSE [id number] 18:17:00 Test Item Value Reference Range Comments POC-GLUCOSE METER (BEAKER) 222 mg/dL 70-110 TESTED AT [address] (test oczz=2877) [place] [address] COMPREHENSIVE METABOLIC [id number] 16:59:00 Test Item Value Reference Range Comments TOTAL PROTEIN (BEAKER) 4.9 gm/dL 6.0-8.3 (test cnrr=161) ALBUMIN (BEAKER) (test 2.2 g/dL 3.5-5.0 jxnr=1574) ALKALINE PHOSPHATASE 71 U/L 40-150 (BEAKER) (test xaym=881) BILIRUBIN TOTAL (BEAKER) 2.2 mg/dL 0.2-1.2 (test lddu=511) SODIUM (BEAKER) (test 140 meq/L 136-145 fapy=317) POTASSIUM (BEAKER) (test 3.3 meq/L 3.5-5.1 wwoq=789) CHLORIDE (BEAKER) (test 99 meq/L 98-107 yqkn=612) CO2 (BEAKER) (test 28 meq/L 22-29 dimt=754) BLOOD UREA NITROGEN 36 mg/dL 7-21 (BEAKER) (test nucl=173) CREATININE (BEAKER) (test 3.57 mg/dL 0.57-1.25 nzpa=395) GLUCOSE RANDOM (BEAKER) 199 mg/dL 70-105 (test zowq=797) CALCIUM (BEAKER) (test 8.5 mg/dL 8.4-10.2 myaj=629) AST (SGOT) (BEAKER) (test 640 U/L 5-34 vhzt=514) ALT (SGPT) (BEAKER) (test 1071 U/L 6-55 bjqb=175) EGFR (BEAKER) (test 15 mL/min/1.73 sq m ESTIMATED GFR IS NOT elra=5488) ACCURATE CREATININE CLEARANCE IN PREDICTING GLOMERULAR FILTRATION RATE. ESTIMATED GFR IS NOT APPLICABLE FOR DIALYSIS PATIENTS. PERIPHERAL BLOOD SMEAR - PATHOLOGIST [id number] 15:30:00 Test Item Value Reference Range Comments RBC MORPHOLOGY (BEAKER) (test Polychromasia usew=1700) RBC MORPHOLOGY (BEAKER) (test Anisocytosis szkr=39524) PERIPHERAL SMR REVIEW Cell counts confirmed (BEAKER) (test zsml=3845) [id number]-[id number] Josefina Lara M.D. (BEAKER) (test mnqx=6988) (electronic signature) PROTHROMBIN TIME/[id number] 15:12:00 Test Item Value Reference Range Comments PROTIME (BEAKER) (test hetl=435) 16.6 seconds 11.7-14.7 INR (BEAKER) (test tnww=516) 1.4 <=5.9 RECOMMENDED COUMADIN/WARFARIN INR THERAPY RANGESSTANDARD DOSE: 2.0 - 3.0 Includes: PROPHYLAXIS forvenous thrombosis, systemic embolization; TREATMENT for venous thrombosis and/or pulmonary embolus.HIGH RISK: Target INR is 2.5-3.5 for patients with mechanical heart valves.ANTI-NUCLEAR ANTIBODY (IVETTE)2017-01-04 14:32:00 Test Item Value Reference Range Comments ANTI-NUCLEAR ANTIBODY (IVETTE) (BEAKER) (test Negative Negative zwbc=853) POCT-GLUCOSE [id number] 12:47:00 Test Item Value Reference Range Comments POC-GLUCOSE METER (BEAKER) 212 mg/dL 70-110 TESTED AT [facility] [address] [facility] (test floq=3708) [facility] [address] [id number] 12:34:00 Test Item Value Reference Range Comments RPR SCREEN ([employer]) (test zarl=426) Nonreactive Nonreactive CLOSTRIDIUM DIFFICILE TOXIN [id number] 10:12:00 Test Item Value Reference Range Comments CLOSTRIDIUM DIFFICILE TOXIN, PCR ([employer]) (test Not Detected Not Detected czus=6150) This qualitative real-time polymerase chain reaction assay [...] Value Reference Range Comments FACTOR V ACTIVITY ([employer]) (test zdao=927) 86.0 % 60.0-150.0 Effective 10/24/2013: Reference Range Change-Adult onlyNew: 60.0-150.0 Previous : 50.0-150.0FACTOR 5 ACTIVITY (BLEEDING RISK)2017-01-04 09:13:00 Test Item Value Reference Range Comments FACTOR V ACTIVITY ([employer]) (test pgak=543) 56.0 % 60.0-150.0 Effective 10/24/2013: Reference Range Change-Adult onlyNew: 60.0-150.0 Previous : 50.0-150.0POCT-GLUCOSE [id number] 06:40:00 Test Item Value Reference Range Comments POC-GLUCOSE METER ([employer]) 167 mg/dL 70-110 [facility] [address] [facility] (test xomw=6845) [facility] [address] COMPREHENSIVE METABOLIC [id number] 04:08:00 Test Item Value Reference Range Comments TOTAL PROTEIN ([employer]) 4.7 gm/dL 6.0-8.3 (test cmwc=170) ALBUMIN (BEAKER) (test 2.1 g/dL 3.5-5.0 kosv=4521) ALKALINE PHOSPHATASE 71 U/L 40-150 (BEAKER) (test jmrk=714) BILIRUBIN TOTAL (BEAKER) 2.6 mg/dL 0.2-1.2 (test vgzm=056) SODIUM (BEAKER) (test 140 meq/L 136-145 uojz=977) POTASSIUM (BEAKER) (test 2.8 meq/L 3.5-5.1 hlsw=088) CHLORIDE (BEAKER) (test 95 meq/L 98-107 lwci=703) CO2 (BEAKER) (test 31 meq/L 22-29 clqv=816) BLOOD UREA NITROGEN 39 mg/dL 7-21 (BEAKER) (test gzet=451) CREATININE (BEAKER) (test 4.10 mg/dL 0.57-1.25 lncf=857) GLUCOSE RANDOM (BEAKER) 155 mg/dL 70-105 (test zgar=556) CALCIUM (BEAKER) (test 8.2 mg/dL 8.4-10.2 oran=594) AST (SGOT) (BEAKER) (test 846 U/L 5-34 wbws=230) ALT (SGPT) (BEAKER) (test 1091 U/L 6-55 ysnc=097) EGFR (BEAKER) (test mL/min/1.73 sq m INSUFFICIENT CLINICAL DATA zeen=8137) TO CALCULATE ESTIMATED GFR. Specimen slightly ictericHEPATIC FUNCTION [id number] 04:06:00 Test Item Value Reference Range Comments TOTAL PROTEIN (BEAKER) (test xsno=037) 4.7 gm/dL 6.0-8.3 ALBUMIN (BEAKER) (test whsb=2569) 2.1 g/dL 3.5-5.0 BILIRUBIN TOTAL (BEAKER) (test bltq=991) 2.6 mg/dL 0.2-1.2 BILIRUBIN DIRECT (BEAKER) (test zxxh=659) 1.8 mg/dL 0.1-0.5 ALKALINE PHOSPHATASE (BEAKER) (test bglf=379) 71 U/L 40-150 AST (SGOT) (BEAKER) (test icop=224) 846 U/L 5-34 ALT (SGPT) (BEAKER) (test wrfj=672) 1091 U/L 6-55 Specimen slightly [id number] 04:01:00 Test Item Value Reference Range Comments FIBRINOGEN LEVEL (BEAKER) (test efzr=887) 379 mg/dl 225-434 [id number] 04:01:00 Test Item Value Reference Range Comments PARTIAL THROMBOPLASTIN TIME (BEAKER) (test 40.7 seconds 22.5-36.0 yvdv=928) PROTHROMBIN TIME/[id number] 04:00:00 Test Item Value Reference Range Comments PROTIME (BEAKER) (test pvfc=750) 18.7 seconds 11.7-14.7 INR (BEAKER) (test xbgv=950) 1.6 <=5.9 RECOMMENDED COUMADIN/WARFARIN INR THERAPY RANGESSTANDARD DOSE: 2.0 - 3.0 Includes: PROPHYLAXIS forvenous thrombosis, systemic embolization; TREATMENT for venous thrombosis and/or pulmonary embolus.HIGH RISK: Target INR is 2.5-3.5 for patients with mechanical heart valves.CBC W/PLT COUNT & AUTO [id number] 03:56:00 Test Item Value Reference Range Comments WHITE BLOOD CELL COUNT (BEAKER) (test lvko=364) 3.1 K/ L 4.0-10.0 RED BLOOD CELL COUNT (BEAKER) (test xlxe=578) 2.85 M/ L 4.00-5.00 HEMOGLOBIN (BEAKER) (test eozj=337) 8.8 GM/DL 12.0-15.0 HEMATOCRIT (BEAKER) (test fvep=971) 26.6 % 36.0-45.0 MEAN CORPUSCULAR VOLUME (BEAKER) (test fmva=062) 93.4 fL 82.0-99.0 MEAN CORPUSCULAR HEMOGLOBIN (BEAKER) (test 30.9 pg 27.0-33.0 zvww=852) MEAN CORPUSCULAR HEMOGLOBIN CONC (BEAKER) (test 33.0 GM/DL 32.0-36.0 oros=120) RED CELL DISTRIBUTION WIDTH (BEAKER) (test 14.9 % 10.3-14.2 cjjk=679) PLATELET COUNT (BEAKER) (test ggnh=532) 98 K/CU MM 150-430 MEAN PLATELET VOLUME (BEAKER) (test zcvt=440) 9.1 fL 6.5-10.5 NUCLEATED RED BLOOD CELLS (BEAKER) (test 0 /100 WBC 0-0 edwr=398) NEUTROPHILS RELATIVE PERCENT (BEAKER) (test 55 % omts=953) LYMPHOCYTES RELATIVE PERCENT (BEAKER) (test 27 % uwes=980) MONOCYTES RELATIVE PERCENT (BEAKER) (test 12 % lvia=422) EOSINOPHILS RELATIVE PERCENT (BEAKER) (test 5 % usxf=443) BASOPHILS RELATIVE PERCENT (BEAKER) (test 1 % eztc=848) NEUTROPHILS ABSOLUTE COUNT (BEAKER) (test 1.71 K/ L 1.80-8.00 mpwn=866) LYMPHOCYTES ABSOLUTE COUNT (BEAKER) (test 0.83 K/ L 1.48-4.50 uysk=423) MONOCYTES ABSOLUTE COUNT (BEAKER) (test qykz=167) 0.38 K/ L 0.00-1.30 EOSINOPHILS ABSOLUTE COUNT (BEAKER) (test 0.14 K/ L 0.00-0.50 kgtz=664) BASOPHILS ABSOLUTE COUNT (BEAKER) (test pcjw=612) 0.02 K/ L 0.00-0.20 0.00POCT-GLUCOSE [id number] 00:19:00 Test Item Value Reference Range Comments POC-GLUCOSE METER (BEAKER) 159 mg/dL 70-110 TESTED AT [address] (test kdlc=3139) [place] [id number] POCT-GLUCOSE [id number] 18:56:00 Test Item Value Reference Range Comments POC-GLUCOSE METER (BEAKER) 192 mg/dL 70-110 TESTED AT [address] (test jhyu=4159) [place] [id number] COMPREHENSIVE METABOLIC [id number] 16:55:00 Test Item Value Reference Range Comments TOTAL PROTEIN (BEAKER) 4.5 gm/dL 6.0-8.3 (test fuvy=082) ALBUMIN (BEAKER) (test 2.0 g/dL 3.5-5.0 cvzm=9528) ALKALINE PHOSPHATASE 74 U/L 40-150 (BEAKER) (test hnjh=823) BILIRUBIN TOTAL (BEAKER) 2.9 mg/dL 0.2-1.2 (test gksr=143) SODIUM (BEAKER) (test 142 meq/L 136-145 fmle=382) POTASSIUM (BEAKER) (test 3.0 meq/L 3.5-5.1 owbh=143) CHLORIDE (BEAKER) (test 95 meq/L 98-107 xlpu=300) CO2 (BEAKER) (test 33 meq/L 22-29 jnfd=258) BLOOD UREA NITROGEN 45 mg/dL 7-21 (BEAKER) (test ibkd=699) CREATININE (BEAKER) (test 4.87 mg/dL 0.57-1.25 hddk=352) GLUCOSE RANDOM (BEAKER) 177 mg/dL 70-105 (test rzvc=370) CALCIUM (BEAKER) (test 8.4 mg/dL 8.4-10.2 nscz=799) AST (SGOT) (BEAKER) (test 1283 U/L 5-34 xsuw=271) ALT (SGPT) (BEAKER) (test 1314 U/L 6-55 jqlz=510) EGFR (BEAKER) (test mL/min/1.73 sq m INSUFFICIENT CLINICAL DATA hkbf=0382) TO CALCULATE ESTIMATED GFR. Specimen slightly ictericPROTHROMBIN [id number] 16:37:00 Test Item Value Reference Range Comments PROTIME (BEAKER) (test otqr=223) 20.9 seconds 11.7-14.7 INR (BEAKER) (test fxfz=643) 1.8 <=5.9 RECOMMENDED COUMADIN/WARFARIN INR THERAPY RANGESSTANDARD DOSE: 2.0 - 3.0 Includes: PROPHYLAXIS forvenous thrombosis, systemic embolization; TREATMENT for venous thrombosis and/or pulmonary embolus.HIGH RISK: Target INR is 2.5-3.5 for patients with mechanical heart valves.HEPATITIS B SURFACE [id number] 14:05:00 Test Item Value Reference Range Comments HEPATITIS B SURFACE ANTIBODY (BEAKER) (test < mIU/mL <8.0 lyhc=233) HEPATITIS B CORE ANTIBODY, [id number] 13:43:00 Test Item Value Reference Range Comments HEPATITIS B CORE TOTAL ANTIBODY (BEAKER) (test Nonreactive Nonreactive vwkr=802) BLOOD GAS, [id number] 13:35:00 Test Item Value Reference Range Comments PH ARTERIAL (BEAKER) (test hnpw=180) 7.44 7.35-7.45 PCO2 ARTERIAL (BEAKER) (test xkjo=928) 55 mmHg 35-45 PO2 ARTERIAL (BEAKER) (test ndzz=941) 99 mmHg 80-90 O2 SATURATION ARTERIAL (BEAKER) (test jzmm=454) 97.4 % 96.0-97.0 HCO3 ARTERIAL (BEAKER) (test ccpi=220) 36 mmol/L 21-29 BASE EXCESS ARTERIAL (BEAKER) (test ioxf=463) 10.3 mmol/L -2.0-3.0 PATIENT TEMPERATURE (BEAKER) (test bypo=3671) 37.5 C FIO2 (BEAKER) (test okmw=2435) 28.0 % URINALYSIS W/ [id number] 13:16:00 Test Item Value Reference Range Comments COLOR (BEAKER) (test chrb=956) Yellow CLARITY (BEAKER) (test bbkl=585) Clear SPECIFIC GRAVITY UA (BEAKER) (test welb=257) 1.013 1.001-1.035 PH UA (BEAKER) (test xyvr=297) 6.0 5.0-8.0 PROTEIN UA (BEAKER) (test snby=693) 300 mg/dL Negative GLUCOSE UA (BEAKER) (test kohz=075) 30 mg/dL Negative KETONES UA (BEAKER) (test ibpe=936) Trace Negative BILIRUBIN UA (BEAKER) (test thbu=300) Positive Negative BLOOD UA (BEAKER) (test ahgl=659) Moderate Negative NITRITE UA (BEAKER) (test yhrd=096) Negative Negative LEUKOCYTE ESTERASE UA (BEAKER) (test fjcd=445) Moderate Negative UROBILINOGEN UA (BEAKER) (test sjpp=560) 2.0 mg/dL 0.2-1.0 RBC UA (BEAKER) (test kjrs=451) 2 /HPF WBC UA (BEAKER) (test dfxd=497) 41 /HPF HYALINE CASTS (BEAKER) (test wpmv=196) 10 /LPF AMORPHOUS CRYSTALS (BEAKER) (test evjj=5430) Rare SOURCE(BEAKER) (test zjvy=3925) Urine, [place] VITAMIN D, [id number] 13:14:00 Test Item Value Reference Range Comments VITAMIN D 25-OH (BEAKER) (test kwae=6645) < ng/mL 13.0-47.8 ALPHA FETOPROTEIN (AFP), TUMOR [id number] 13:06:00 Test Item Value Reference Range Comments ALPHA-FETOPROTEIN (BEAKER) (test rcnv=5039) < ng/mL <10.0 Effective 05/08/2014: Reference Range ChangeNew: <10.0 Previous: 0.0- 8.0HEMOGLOBIN [id number] 13:05:00 Test Item Value Reference Range Comments HEMOGLOBIN A1C (BEAKER) (test oyhl=921) 7.6 % 4.3-6.1 CARCINOEMBRYONIC ANTIGEN (CEA)2017-01-03 12:59:00 Test Item Value Reference Range Comments CARCINOEMBRYONIC ANTIGEN (BEAKER) (test kovk=193) 2.0 ng/mL 0.0-5.0 [id number] 12:59:00 Test Item Value Reference Range Comments FERRITIN (BEAKER) (test pdgc=904) 1841 ng/mL 5-275 Effective 05/08/2014: Reference Range ChangeNew: Male 5-275 Previous: Male 22-322 Female 5-275 Female [id number] 12:58:00 Test Item Value Reference Range Comments T4 TOTAL (BEAKER) (test hyow=226) 4.5 ug/dL 4.9-11.7 [id number] 12:58:00 Test Item Value Reference Range Comments THYROID STIMULATING HORMONE (BEAKER) (test 1.79 uIU/mL 0.35-4.94 ogjq=797) [id number] 12:58:00 Test Item Value Reference Range Comments T3 TOTAL (BEAKER) (test bkbe=267) 34 ng/dL 48-159 Effective 05/08/2014: Reference Range ChangeNew: 48-159 Previous: 60- 181CALCIUM, [id number] 12:47:00 Test Item Value Reference Range Comments CALCIUM IONIZED (BEAKER) (test bxru=412) 1.05 mmol/L 1.12-1.27 PH, BLOOD (BEAKER) (test zgyo=8435) 7.43 [id number] 12:42:00 Test Item Value Reference Range Comments TRANSFERRIN (BEAKER) (test qkvy=175) 128 mg/dL 174-382 Specimen slightly ictericIRON, TIBC, % SAT. (WITHOUT FERRITIN)2017-01-03 12:42: 00 Test Item Value Reference Range Comments IRON (BEAKER) (test mtzx=213) 59 ug/dL 40-160 TOTAL IRON BINDING CAPACITY (BEAKER) (test 160 ug/dL 250-450 mhem=091) IRON % SATURATION (2) (BEAKER) (test zvby=8841) 37 % 20-55 URIC [id number] 12:40:00 Test Item Value Reference Range Comments URIC ACID (BEAKER) (test qwfk=347) 16.0 mg/dL 2.6-7.2 Specimen slightly ictericLIPID [id number] 12:40:00 Test Item Value Reference Range Comments TRIGLYCERIDES (BEAKER) (test lkte=341) 134 mg/dL CHOLESTEROL (BEAKER) (test nqtd=785) 120 mg/dL HDL CHOLESTEROL (BEAKER) (test gvhw=886) 7 mg/dL LDL CHOLESTEROL CALCULATED (BEAKER) (test 86 mg/dL umpr=574) Triglyceride Reference Range: Low Risk <150 Borderline 150- 199 High Risk 200-499 Very High Risk >=500Cholesterol Reference Range: Low Risk <200 Borderline 200-239 High Risk > 240HDL Cholesterol Reference Range: Low Risk >=60 High Risk <40LDL Cholesterol Reference Range: Optimal <100 Near Optimal 100-129 Borderline 130-159 High 160-189 Very High >=190 Specimen slightly ictericBILIRUBIN, [id number] 12:40:00 Test Item Value Reference Range Comments BILIRUBIN DIRECT (BEAKER) (test bpre=541) 2.4 mg/dL 0.1-0.5 GAMMA GLUTAMYL TRANSFERASE (GGT)2017-01-03 12:40:00 Test Item Value Reference Range Comments GAMMA GLUTAMYL TRANSFERASE (BEAKER) (test ppci=911) 53 U/L 9-64 Specimen slightly [id number] 12:39:00 Test Item Value Reference Range Comments ETHANOL (BEAKER) (test exdl=679) < mg/dL <=10 SCREEN, [id number] 12:36:00 Test Item Value Reference Range Comments TEST URINE (BEAKER) (test tdvj=196) Negative POCT-GLUCOSE [id number] 12:34:00 Test Item Value Reference Range Comments POC-GLUCOSE METER (BEAKER) 189 mg/dL 70-110 TESTED AT [address] (test emwj=1429) [facility] [address] HIV-1 ANTIGEN WITH HIV-1/2 [id number] 11:58:00 Test Item Value Reference Range Comments HIV-1 ANTIGEN WITH HIV 1\T\2 ANTIBODY (2) Nonreactive Nonreactive (BEAKER) (test voyb=0089) TROPONIN [id number] 09:44:00 Test Item Value Reference Range Comments TROPONIN I (BEAKER) (test vktz=862) 0.34 ng/mL 0.00-0.03 Effective 05/08/2014: Reference Range [...] and persistent tachyarrhythmia.CREATINE KINASE (CK), TOTAL AND [id number] 09:43:00 Test Item Value Reference Range Comments CREATINE KINASE TOTAL (BEAKER) (test gcnk=161) 301 U/L 29-200 CREATINE KINASE-MB (BEAKER) (test shft=991) 5.6 ng/mL 0.0-6.6 CREATINE KINASE-MB INDEX (BEAKER) (test coxt=978) 1.9 % Effective 05/08/2014: CK-MB Reference Range ChangeNew: 0.0-6.6 Previous: 0.0- 4.9CK-MB Reference Range:<6.7 Normal6.7-10.0 Borderline>10.0 AbnormalACETAMINOPHEN [id number] 08:31:00 Test Item Value Reference Range Comments ACETAMINOPHEN LEVEL (BEAKER) (test luwq=484) < ug/mL 10.0-30.0 TROPONIN [id number] 05:53:00 Test Item Value Reference Range Comments TROPONIN I (BEAKER) (test jkgz=319) 0.33 ng/mL 0.00-0.03 Effective 05/08/2014: Reference Range [...] acute neurological disease, and persistent tachyarrhythmia.BASIC METABOLIC [id number] 05:53:00 Test Item Value Reference Range Comments SODIUM (BEAKER) (test 144 meq/L 136-145 hifx=428) POTASSIUM (BEAKER) (test 2.8 meq/L 3.5-5.1 mwse=932) CHLORIDE (BEAKER) (test 95 meq/L 98-107 gxui=242) CO2 (BEAKER) (test 35 meq/L 22-29 ahes=099) BLOOD UREA NITROGEN 49 mg/dL 7-21 (BEAKER) (test hbpo=247) CREATININE (BEAKER) (test 5.61 mg/dL 0.57-1.25 chpl=350) GLUCOSE RANDOM (BEAKER) 138 mg/dL 70-105 (test rffo=825) CALCIUM (BEAKER) (test 8.2 mg/dL 8.4-10.2 vxyc=832) EGFR (BEAKER) (test mL/min/1.73 sq m INSUFFICIENT CLINICAL DATA rgge=3980) TO CALCULATE ESTIMATED GFR. Specimen slightly [id number] 05:52:00 Test Item Value Reference Range Comments PHOSPHORUS (BEAKER) (test lnjq=588) 5.7 mg/dL 2.3-4.7 HEPATIC FUNCTION [id number] 05:52:00 Test Item Value Reference Range Comments TOTAL PROTEIN (BEAKER) (test djeu=281) 5.2 gm/dL 6.0-8.3 ALBUMIN (BEAKER) (test jxtx=3641) 2.3 g/dL 3.5-5.0 BILIRUBIN TOTAL (BEAKER) (test evba=782) 3.5 mg/dL 0.2-1.2 BILIRUBIN DIRECT (BEAKER) (test cpmf=613) 2.6 mg/dL 0.1-0.5 ALKALINE PHOSPHATASE (BEAKER) (test ileo=486) 81 U/L 40-150 AST (SGOT) (BEAKER) (test hwrh=605) 2190 U/L 5-34 ALT (SGPT) (BEAKER) (test rwtq=712) 1782 U/L 6-55 Specimen slightly ictericCREATINE KINASE (CK), TOTAL AND [id number] 05:52:00 Test Item Value Reference Range Comments CREATINE KINASE TOTAL (BEAKER) (test isjy=865) 341 U/L 29-200 CREATINE KINASE-MB (BEAKER) (test leup=961) 5.4 ng/mL 0.0-6.6 CREATINE KINASE-MB INDEX (BEAKER) (test trle=565) 1.6 % Effective 05/08/2014: CK-MB Reference Range ChangeNew: 0.0-6.6 Previous: 0.0- 4.9CK-MB Reference Range:<6.7 Normal6.7-10.0 Borderline>10.0 AbnormalCBC W/PLT COUNT & AUTO [id number] 05:48:00 Test Item Value Reference Range Comments WHITE BLOOD CELL COUNT (BEAKER) (test qgaj=203) 4.1 K/ L 4.0-10.0 RED BLOOD CELL COUNT (BEAKER) (test xner=703) 3.29 M/ L 4.00-5.00 HEMOGLOBIN (BEAKER) (test frxd=925) 10.0 GM/DL 12.0-15.0 HEMATOCRIT (BEAKER) (test hhdu=292) 30.7 % 36.0-45.0 MEAN CORPUSCULAR VOLUME (BEAKER) (test qoge=595) 93.5 fL 82.0-99.0 MEAN CORPUSCULAR HEMOGLOBIN (BEAKER) (test 30.5 pg 27.0-33.0 oinh=233) MEAN CORPUSCULAR HEMOGLOBIN CONC (BEAKER) (test 32.6 GM/DL 32.0-36.0 zaiu=239) RED CELL DISTRIBUTION WIDTH (BEAKER) (test 15.0 % 10.3-14.2 rfcr=506) PLATELET COUNT (BEAKER) (test ksor=478) 106 K/CU MM 150-430 MEAN PLATELET VOLUME (BEAKER) (test tgql=723) 9.6 fL 6.5-10.5 NUCLEATED RED BLOOD CELLS (BEAKER) (test 0 /100 WBC 0-0 virc=389) NEUTROPHILS RELATIVE PERCENT (BEAKER) (test 66 % hgwh=135) LYMPHOCYTES RELATIVE PERCENT (BEAKER) (test 24 % tsjd=481) MONOCYTES RELATIVE PERCENT (BEAKER) (test 6 % zvni=852) EOSINOPHILS RELATIVE PERCENT (BEAKER) (test 3 % hnal=466) BASOPHILS RELATIVE PERCENT (BEAKER) (test 0 % iggy=385) NEUTROPHILS ABSOLUTE COUNT (BEAKER) (test 2.74 K/ L 1.80-8.00 rcmn=840) LYMPHOCYTES ABSOLUTE COUNT (BEAKER) (test 1.00 K/ L 1.48-4.50 wagt=476) MONOCYTES ABSOLUTE COUNT (BEAKER) (test 0.26 K/ L 0.00-1.30 fruy=929) EOSINOPHILS ABSOLUTE COUNT (BEAKER) (test 0.13 K/ L 0.00-0.50 lzuk=532) BASOPHILS ABSOLUTE COUNT (BEAKER) (test 0.01 K/ L 0.00-0.20 ukmg=723) [id number] 05:09:00 Test Item Value Reference Range Comments FIBRINOGEN LEVEL (BEAKER) (test vkfq=796) 427 mg/dl 225-434 [id number] 05:09:00 Test Item Value Reference Range Comments PARTIAL THROMBOPLASTIN TIME (BEAKER) (test 36.2 seconds 22.5-36.0 jyvo=045) PROTHROMBIN TIME/[id number] 05:08:00 Test Item Value Reference Range Comments PROTIME (BEAKER) (test ajqn=001) 22.8 seconds 11.7-14.7 INR (BEAKER) (test vivh=769) 2.0 <=5.9 RECOMMENDED COUMADIN/WARFARIN INR THERAPY RANGESSTANDARD DOSE: 2.0 - 3.0 Includes: PROPHYLAXIS forvenous thrombosis, systemic embolization; TREATMENT for venous thrombosis and/or pulmonary embolus.HIGH RISK: Target INR is 2.5-3.5 for patients with mechanical heart valves.HEPATITIS PANEL, [id number] 03:40 :00 Test Item Value Reference Range Comments HEPATITIS A IGM ANTIBODY (BEAKER) (test Nonreactive Nonreactive kttq=226) HEPATITIS B CORE IGM ANTIBODY (BEAKER) (test Nonreactive Nonreactive rozu=904) HEPATITIS C ANTIBODY (BEAKER) (test bhvl=709) Nonreactive Nonreactive HEPATITIS B SURFACE ANTIGEN (2) (BEAKER) (test Nonreactive Nonreactive uqzu=7068) CREATININE, RANDOM [id number] 03:18:00 Test Item Value Reference Range Comments CREATININE URINE (BEAKER) (test ecxy=215) 118.7 mg/dL Reference Range: No NormalsSODIUM, RANDOM [id number] 03:18:00 Test Item Value Reference Range Comments SODIUM URINE (BEAKER) (test rehr=266) 60 meq/L Reference Range: No NormalsUREA NITROGEN, RANDOM [id number] 03:18:00 Test Item Value Reference Range Comments UREA NITROGEN URINE (BEAKER) (test ccyg=304) 303 mg/dL Reference Range: No [id number] 03:07:00 Test Item Value Reference Range Comments AMMONIA (BEAKER) (test eyah=265) 48 mol/L 18-72 [id number] 02:57:00 Test Item Value Reference Range Comments D-DIMER QUANTITATIVE (BEAKER) (test vozn=506) 18.03 MG/L FEU <0.50 Intended Use: The [...] is within 95-100% range.URINALYSIS W/ REFLEX URINE [id number] 02:53:00 Test Item Value Reference Range Comments COLOR (BEAKER) (test gwke=513) Yellow CLARITY (BEAKER) (test colb=402) Hazy SPECIFIC GRAVITY UA (BEAKER) (test ppge=485) 1.012 1.001-1.035 PH UA (BEAKER) (test tvyb=860) 6.5 5.0-8.0 PROTEIN UA (BEAKER) (test mynu=651) 300 mg/dL Negative GLUCOSE UA (BEAKER) (test tdfl=275) Negative Negative KETONES UA (BEAKER) (test cbfy=620) Negative Negative BILIRUBIN UA (BEAKER) (test kaia=823) Positive Negative BLOOD UA (BEAKER) (test snyw=858) Moderate Negative NITRITE UA (BEAKER) (test niml=856) Negative Negative LEUKOCYTE ESTERASE UA (BEAKER) (test nfcv=540) Large Negative UROBILINOGEN UA (BEAKER) (test lgfn=263) 3.0 mg/dL 0.2-1.0 RBC UA (BEAKER) (test avgn=903) 4 /HPF WBC UA (BEAKER) (test bpey=705) > /HPF BACTERIA (BEAKER) (test tsod=731) Occasional MUCUS (BEAKER) (test npsq=2080) Rare SQUAMOUS EPITHELIAL (BEAKER) (test wvnk=318) 19 /HPF HYALINE CASTS (BEAKER) (test bdyv=926) 13 /LPF SOURCE(BEAKER) (test hnkk=6960) [id number] 02:49:00 Test Item Value Reference Range Comments PARTIAL THROMBOPLASTIN TIME (BEAKER) (test 39.4 seconds 22.5-36.0 rxhg=239) PROTHROMBIN TIME/[id number] 02:48:00 Test Item Value Reference Range Comments PROTIME (BEAKER) (test dulj=468) 22.0 seconds 11.7-14.7 INR (BEAKER) (test awvl=647) 1.9 <=5.9 RECOMMENDED COUMADIN/WARFARIN INR THERAPY RANGESSTANDARD DOSE: 2.0 - 3.0 Includes: PROPHYLAXIS forvenous thrombosis, systemic embolization; TREATMENT for venous thrombosis and/or pulmonary embolus.HIGH RISK: Target INR is 2.5-3.5 for patients with mechanical heart valves.[id number] 02:48:00 Test Item Value Reference Range Comments FIBRINOGEN LEVEL (BEAKER) (test joun=263) 421 mg/dl 225-434 BLOOD GAS, [id number] 02:43:00 Test Item Value Reference Range Comments PH VENOUS (BEAKER) (test zpoy=557) 7.46 7.32-7.42 PCO2 VENOUS (BEAKER) (test ruct=521) 53 mmHg 41-51 PO2 VENOUS (BEAKER) (test mgyz=229) 83 mmHg 25-40 O2 SATURATION VENOUS (BEAKER) (test febe=707) 96.5 % 40.0-70.0 HCO3 VENOUS (BEAKER) (test mlfr=713) 37 mmol/L 21-29 BASE EXCESS VENOUS (BEAKER) (test bdls=846) 11.7 mmol/L -2.0-3.0 PATIENT TEMPERATURE (BEAKER) (test apmo=1860) 37.0 C FIO2 (BEAKER) (test vdin=8522) 21.0 % CBC W/PLT COUNT & AUTO [id number] 02:43:00 Test Item Value Reference Range Comments WHITE BLOOD CELL COUNT (BEAKER) (test tbvl=825) 4.4 K/ L 4.0-10.0 RED BLOOD CELL COUNT (BEAKER) (test zwdl=844) 3.13 M/ L 4.00-5.00 HEMOGLOBIN (BEAKER) (test xqjr=994) 9.8 GM/DL 12.0-15.0 HEMATOCRIT (BEAKER) (test gfrk=448) 29.0 % 36.0-45.0 MEAN CORPUSCULAR VOLUME (BEAKER) (test ldeo=016) 92.9 fL 82.0-99.0 MEAN CORPUSCULAR HEMOGLOBIN (BEAKER) (test 31.3 pg 27.0-33.0 qtkh=353) MEAN CORPUSCULAR HEMOGLOBIN CONC (BEAKER) (test 33.6 GM/DL 32.0-36.0 qywy=578) RED CELL DISTRIBUTION WIDTH (BEAKER) (test 15.3 % 10.3-14.2 htxf=451) PLATELET COUNT (BEAKER) (test axoa=592) 113 K/CU MM 150-430 MEAN PLATELET VOLUME (BEAKER) (test bblo=378) 9.8 fL 6.5-10.5 NUCLEATED RED BLOOD CELLS (BEAKER) (test 0 /100 WBC 0-0 fhrt=244) NEUTROPHILS RELATIVE PERCENT (BEAKER) (test 61 % wdus=993) LYMPHOCYTES RELATIVE PERCENT (BEAKER) (test 23 % maax=920) MONOCYTES RELATIVE PERCENT (BEAKER) (test 11 % zxxv=344) EOSINOPHILS RELATIVE PERCENT (BEAKER) (test 4 % iqgq=900) BASOPHILS RELATIVE PERCENT (BEAKER) (test 1 % zhrr=596) NEUTROPHILS ABSOLUTE COUNT (BEAKER) (test 2.65 K/ L 1.80-8.00 ufxa=997) LYMPHOCYTES ABSOLUTE COUNT (BEAKER) (test 1.01 K/ L 1.48-4.50 dthf=962) MONOCYTES ABSOLUTE COUNT (BEAKER) (test 0.48 K/ L 0.00-1.30 mkbc=599) EOSINOPHILS ABSOLUTE COUNT (BEAKER) (test 0.19 K/ L 0.00-0.50 oiyl=260) BASOPHILS ABSOLUTE COUNT (BEAKER) (test 0.05 K/ L 0.00-0.20 heqq=426) 0.00LACTIC ACID, VENOUS, WHOLE [id number] 02:35:00 Test Item Value Reference Range Comments LACTATE BLOOD VENOUS (2) (BEAKER) (test 0.8 mmol/L 0.5-2.2 alqt=9294) Effective 10/23/2015: Units/Reference Range ChangeNew: 0.5-2.2 mmol/L Previous: 5 -20 mg/dLSpecimen slightly icteric
== END 2019-04-25 17:11 | disposition home or self-care (01) ==
LOC: ER 13:12
DX: R05 Cough (principal); E11.22 Type 2 diabetes mellitus with diabetic chronic kidney disease; N18.6 End stage renal disease; Z99.2 Dependence on renal dialysis; Z79.4 Long term (current) use of insulin; Z72.0 Tobacco use; Z88.0 Allergy status to penicillin; Z88.5 Allergy status to narcotic agent; Z88.8 Allergy status to other drugs, medicaments and biological substances
CPT/HCPCS: 71046; 99284

== ENCOUNTER 2020-03-05 08:16 | Inpatient (IN) | payer OTHER ==
[2020-03-05] MEDS ORDERED: ONDANSETRON 4 MG/2 ML VIAL ONE (08:37)
[2020-03-05] MEDS ORDERED: MORPHINE 2 MG/ML SYR ONE ×2 (08:37→12:18)
[2020-03-05] MEDS ORDERED: FAMOTIDINE 20 MG/2 ML VIAL IV ONE (08:37)
[2020-03-05] MEDS ORDERED: NA CHLORIDE 0.9% 500 ML ONE (08:43)
--- OUTSIDE RECORDS SUMMARY | 2020-03-05 08:54 | XMS REPORT | Clinical Summary ---
:1980 Author Organization [facility] Address [address] [address] Care Team Providers Name Role Phone Sharpless Primary Care Provider Allergies Active Allergy Reactions Severity Noted Date Comments Zolpidem Other (See Comments) 01/03/2017 confusi on Lisinopril Other (See Comments) 01/03/2017 Unable to remember Nitrofurantoin Anaphylaxis High 01/03/2017 Liver failure Monohyd/M-Cryst Penicillins Shortness Of Breath High 01/03/2017 Guaifenesin Other (See Comments) 01/03/2017 numbnes s Medications Medication Sig Dispensed Refills Start End Date Status Date divalproex (DEPAKOTE) Take 500 mg by 0 Active 500 MG EC mouth daily. tabletIndications: bipolar depression ondansetron (ZOFRAN) 4 Take 4 mg by [...] by mouth 0 Active MG tabletIndications: daily. anxiousness associated with depression medroxyPROGESTERone Inject 0 Active (DEPO-PROVERA) 150 mg/mL [...] Hyperglycemia due to type 2 diabetes mellitus 01/04/20 17 Gastroparesis due to DM 01/03/2017 Cyclic vomiting syndrome 01/03/2017 Anxiety 01/03/2017 Bipolar disorder 01/03/2017 Hypertensive emergency 01/03/2017 Social History Tobacco Use Types Packs/Day Years Used Date Former Smoker 0.5 20 Quit: 12/05/19 17 Tobacco Cessation: Counseling Given: Yes Comments: patient stated she stopped 1 m onth ago. Alcohol Use Drinks/Week oz/Week Comments No Sex Assigned at Date Recorded Not on file Job Start Date Occupation Industry Not on file Not on file Not on file Travel History Travel Start Travel End No recent travel history available. Last Filed Vital Signs Not on file Plan of Treatment Not on file Results Not on fileafter 03/05/2019 Insurance Payer Benefit Plan / Group Subscriber ID Type Phone A ddress MEDICARE MEDICARE A B xxxxxxxxxx Medicare MEDICAID [place]ICA[place] xxxxxxxxx Medicaid Advance Directives For more information, please contact:[address] [phone] Code Status Date Activated Date Inactivated Comments Full Code 01/03/2017 1:56 AM 01/07/2017 5:21 PM This code status was determined by: Patient
[2020-03-05] MEDS ORDERED: PROMETHAZINE 25 MG/SUPP PR ONE (08:55)
--- OUTSIDE RECORDS SUMMARY | 2020-03-05 09:05 | XMS REPORT | Continuity of Care Document ---
:1980 Author Organization [employer] Care Team Providers Name Role Phone [employer] Unavailable Un available Problems Problem Status Onset Classification Date Comments Sourc e Date Reported NEW EVALUATION [place]19 [place] [facility] CONGESTION AMD Active 07/23/19 [facility] [place] DIARRHEA 17 [facility] ACUTE RESP Active 07/23/19 [facility] FAILURE [address] [place] [address] SOB/SWELLING Active 06/10/[address] CHF/RENAL DISEASE Active 06/10/[address] Center Discharge 06/26/19 06/28/2014 [facility] Diagnosis: [facility] [place] [facility] ABDOMINAL PAIN, Active 06/26/19 [facility] [place] SEIZURES 14 [facility] ABD PAIN Active 04/14/[address] GASTROPERISIS Active 08/02/19 Baljinder as [address] [place] [address] Center ABDOMINAL PAIN Active 03/14/[address] NAUSEA, VOMITING Active 03/14/[address] Nausea and Resolved 11/29/19 Problem 08/02/2016 [facility] vomiting Medical (disorder) [facility] VOMITTING Active 11/28/[address] N/V INABILITY TO Active 11/28/19 [facility] TOLERATE PO [address] [place] [address] VOMITTING, HIGH Active 09/18/19 [facility] [place] BLOOD SUGAR [address] [place] [address] MRSA Active 09/01/19 Problem 03/16/2012 - [place] und [place] 12 2Problem added by Jodie scerlisa Expert. [facility] Methicillin Active 09/01/19 Problem 08/02/2016 09/01/11 - Elbow w [place]und [place] resistant 12 Problem added by Bertin pandan Expert. [facility] Active 08/31/19 [facility]C [facility] Active 08/31/19 [facility] [place] SUGAR READINGS [facility] Hypokalemia Active 08/23/19 Problem 03/16/2012 [facility] [place] [facility] Hypokalemia Resolved 08/23/19 Problem 08/02/[place] [facility] [facility] Disorder of Resolved 08/23/19 Problem 08/02/2016 Amisha lombardo magnesium Medical metabolism Center (disorder) Hyperglycemia Inactive 08/20/19 Problem 03/16/2012 [place] [facility] Hyperglycemia Resolved 08/20/19 Problem 08/02/2016 [place] ([place] [facility] DKA (diabetic Resolved 08/19/19 Problem 04/22/2013 [place] ketoacidoses[place] [facility] Ketoacidosis in Resolved 08/19/19 Problem 08/02/2016 [facility] diabetes mellitus [facility] dical (disorder) Center VOMITING Active 08/19/[address] DKA Active 08/19/[address] Hypoglycemia Inactive Problem 04/22/2013 (disorder) [facility] Hypomagnesemia Active Problem 04/22/2013 [facility] Hypertension Active Problem 03/16/2012 [facility] as Medical Center,[facility] Hypoglycemia Inactive Problem 03/16/2012 [facility] Nausea and Active Problem 03/16/2012 [facility] vomiting [facility] Diabetes mellitus Resolved Problem 08/02/2016 [facility] (disorder) [facility] Gastroparesis Resolved Problem 08/02/2016 [facility] [place] (disorder) [facility] Hypertensive Resolved Problem 08/02/2016 Baljinder as disorder, Medical systemic arterial Ce nter, (disorder) [facility] Psychiatric Resolved Problem [facility]/02/[facility] (finding) Seizure (finding) Resolved Problem 08/02/2016 [facility] Final: Acute 08/02/2016 Baljinder as respiratory Medical failure, Center unspecified whether with hypoxia or hypercapnia DMI KETOACD Active [facility] UNCONTROLD [facility] OTHER GENERAL Active Baljinder as [facility] HEART FAILURE, [place] [facility] ACUTE RESPIRATORY Active [facility] FAILURE, UNSP [facility] HYPOXI Center Medications Medication Details Route Status Patient Ordering Order Source Instructions Provider Date Furosemide 40 MG 40 mg = 1 Active 07[place]30/ [place] Oral Tablet tab, PO, 2017 Medical Daily, # 30 Center tab, 0 Refill(s), Pharmacy: [facility] [id number] Bumex 0.5 mg, No Longer [place] Route: PO, Active 2016 Medical Drug form: Center TAB, Daily, Dosing Weight 92.273, kg, Start date: 07/30/16 9:00:00 SENIOR CONTRACTS ADMINISTRATOR, Duration: 30 day, Stop date: 08/28/16 9:00:00 SENIOR CONTRACTS ADMINISTRATOR Lasix Notes: (Same No Longer [place] as: Lasix) Active 2017 Medical May cause GI Center upset. Give with food or milk. Hydralazine Notes: (Same [place] Long[place] as: Active 2017 Medical Apresoline) Center Push over 5 minutes sodium chloride 1,000 mL, No Longer [place] 0.9% 1000 ml INJ Rate: 125 Active 2017 Medic al 1,000 mL ml/hr, Infuse Center over: 8 hr, Route: IV, Dosing Weight 92.273 kg, Total Volume: 1,000, Start date: 07/26/16 12:26:00 SENIOR CONTRACTS ADMINISTRATOR, Duration: 30 day, Stop date: 08/25/16 12:25:00 SENIOR CONTRACTS ADMINISTRATOR Sodium Chloride 500 mL, 500 Inactive [place] 0.154 MEQ/ML ml/hr, Infuse 2017 Medic al Injectable Over: 1 hr, Center Solution Route: IV, 500, Drug form: INJ, ONCE, Priority: STAT, Dosing Weight 92.273 kg, Start date: 07/26/16 7:30:00 SENIOR CONTRACTS ADMINISTRATOR, Duration: 1 doses or times, Stop date: 07/26/16 7:30:00 SENIOR CONTRACTS ADMINISTRATOR Insulin regular 60 units) Inactive M[place] WASTE: F/P - 2017 Medical Black; E - Center Municipal Trash Bin Stable for 28 days at room temperature Expires in days from _Date Insulin, Aspart, Notes: Roll Inactive [place] Human in palms of 2017 Medical hands gently; Center Do not shake vigorously. (Same as: NovoLOG) "single patient use only" WASTE: F/P - Black; E - Municipal Trash Bin Stable for 28 days at room temperature. Expires in days from _Date Insulin, Aspart, Notes: Roll Inactive [place] Human in palms of 2016 Medical hands gently; Center Do not shake vigorously. (Same as: NovoLOG) "single patient use only" WASTE: F/P - Black; E - Municipal Trash Bin Stable for 28 days at room temperature. Expires in days from _Date Insulin, Aspart, Notes: Roll Inactive [place] Human in palms of 2016 Medical hands gently; Center Do not shake vigorously. (Same as: NovoLOG) "single patient use only" WASTE: F/P - Black; E - Municipal Trash Bin Stable for 28 days at room temperature. Expires in days from _Date atorvastatin Notes: (Same No Longer [place] as: Lipitor) Active 2016 [facility] divalproex sodium Notes: (Same No Longer [place] as: Depakote Active 2016 Medical ER) Once Center daily dosing; indicated for migraines. Divalproex sodium extended-rele ase tab. Do not chew or crush. "Do Not Crush" Lasix Notes: (Same No Longer [facility] as: Lasix) Active 2017 Medical Center MEDICATION WASTE Product Size: 40 mg Product Wasted: ___ mg Tylenol Notes: Max No Longer [place] acetaminophen Active 2016 Medical = 4000mg/day Center (4 gm/day). (Same as: Tylenol) Bupropion 150 mg, 1 No Longer [place] tab, Route: Active 2017 Medical PO, Drug Center form: ERTAB, Daily, Dosing Weight 92.273, kg, Start date: 07/24/16 9:00:00 SENIOR CONTRACTS ADMINISTRATOR, Duration: 30 day, Stop date: 08/22/16 9:00:00 SENIOR CONTRACTS ADMINISTRATOR 24 HR Divalproex Notes: (Same No Longer [place] Sodium 500 MG as: Depakote Active 2016 Medic al Extended Release ER) Center Tablet [Depakote] gabapentin 300 MG Notes: (Same No Longer [place] Oral Capsule as: Active 2017 Medical Neurontin) Center Aspirin 81 MG Notes: Take No Longer [place] Chewable Tablet with food. Active 2017 Medic al Center Lasix Notes: (Same Inactive [facility] as: Lasix) 2017 Medical Center MEDICATION WASTE Product Size: 40 mg Product Wasted: ___ mg Zoloft Notes: (Same No Longer [facility] as: Zoloft) Active 2017 Medical Center Protonix Notes: Tablet [place]er [place] should not be Active 2017 Medical chewed or Center crushed. (Same as: Protonix) metoprolol 100 mg, 2 No Longer [facility] extended release tab, Route: Active 2017 Med ical PO, Drug Center form: ERTAB, Daily, Start date: 07/24/16 9:00:00 SENIOR CONTRACTS ADMINISTRATOR, Duration: 30 day, Stop date: 08/22/16 9:00:00 SENIOR CONTRACTS ADMINISTRATOR Insulin Glargine Notes: Same No Longer [place] 100 UNT/ML as: Lantus) Active 2017 Medical Injectable Do not hold Center Solution [Lantus] insulin without contacting prescriber WASTE: F/P - Black; E - Municipal Trash Bin Hydralazine Notes: (Same [place] Longer [place] Hydrochloride 100 as: Active 2016 Medica l MG Oral Tablet Apresoline) Cente r May interfere w/enteral feedings Take With Food Ondansetron Notes: (Same Inactive [facility] as as: Zofran) 2017 Medical Center MEDICATION WASTE Product Size: 4 mg Product Wasted: ___ mg Morphine Notes: (Same Inactive [facility] as:MORPhine 2017 Medical Sulfate) Center Insulin, Aspart, Notes: Roll No Longer 07/24/ M H [place] Human in palms of Active 2016 Medical hands gently; Center Do not shake vigorously. (Same as: NovoLOG) "single patient use only" WASTE: F/P - Black; E - Municipal Trash Bin Stable for 28 days at room temperature. Expires in days from _Date Dilaudid Notes: Same Inactive [place] as Dilaudid 2017 Medical Center Insulin, Aspart, Notes: Roll No Longer 07/24/ M H [place] Human in palms of Active 2016 Medical hands gently; Center Do not shake vigorously. (Same as: NovoLOG) "single patient use only" WASTE: F/P - Black; E - Municipal Trash Bin Stable for 28 days at room temperature. Expires in days from _Date Glucagon 1 mg, Route: No Longer [place] IM, Drug Active 2016 Medical form: [place] PDR/INJ, PRN, Dosing Weight 92.273, kg, PRN Blood Glucose Results, Start date: 07/24/16 2:40:00 SENIOR CONTRACTS ADMINISTRATOR, Duration: 30 day, Stop date: 08/23/16 2:39:00 SENIOR CONTRACTS ADMINISTRATOR Dextrose 50% 25 gm, 50 mL, No Longer [place] Syringe Route: IVP, Active 2016 Medical Drug Form: [facility] INJ, Dosing Weight 92.273, kg, PRN, PRN Blood Glucose Results, Start date: 07/24/16 2:40:00 SENIOR CONTRACTS ADMINISTRATOR, Duration: 30 day, Stop date: 08/23/16 2:39:00 SENIOR CONTRACTS ADMINISTRATOR Docusate Notes: (Same No Longer [place] as: Colace) Active 2017 Medical (Do Not Center Crush) Ondansetron Notes: (Same [place] as: Zofran) Active 2017 Medical Center MEDICATION WASTE Product Size: 4 mg Product Wasted: ___ mg Lasix Notes: (Same Inactive [facility] as: Lasix) 2017 Medical Center MEDICATION WASTE Product Size: 40 mg Product Wasted: ___ mg Aspirin Notes: Take No Longer [facility] with food. Active 2017 Medical Center Prednisone Notes: Take Inactive [facility] with food. 2017 Medical [place] Albuterol 0.833 Notes: (Same No Longer H [place] MG/ML / as: Duoneb) Active 2017 Medical Ipratropium [facility] [place] 0.167 MG/ML Inhalant Solution [DuoNeb] Furosemide 40 MG 80 mg = 2 [place] Oral Tablet tab, PO, BID, 2016 Medica l # 120 tab, 0 Center Refill(s) atorvastatin 40 40 mg = 1 Active Baljinder as mg oral tablet tab, PO, 2016 Medical Bedtime, # 30 Center tab, 0 Refill(s) Insulin Glargine 40 unit, Active Baljinder as 100 UNT/ML SUB-Q, Daily, 2016 Medical Injectable # 10 mL, 0 Center Solution [Lantus] Refill(s) metoprolol 100 mg 100 mg = 1 Active [facility] oral tablet, tab, PO, 2016 Medical extended release Daily, # [address] tab, 0 Refill(s) Hydralazine 100 mg = 1 Active [facility] Hydrochloride 100 tab, PO, BID, 2016 Medical MG Oral Tablet # 60 tab, 0 Cente r Refill(s) 200 ACTUAT 2 puff, Active [facility] Albuterol 0.09 INHALATION, 2016 Medic al MG/ACTUAT Metered PRN, PRN as Ce nter Dose Inhaler needed for wheezing, use as needed for shortness of breath or wheezing, # 8 gm, 0 Refill(s) Aspirin 81 MG 81 mg = 1 Active [facility] Chewable Tablet tab, PO, 2015 Medical Daily, # 30 Center tab, 0 Refill(s) Hydroxyzine 50 mg = 1 Active [facility] Hydrochloride 50 cap, PO, TID, 2015 M edical MG Oral Capsule X 30 day, # Cent er 90 cap, 0 Refill(s) losartan 25 mg 25 mg = 1 [place] oral tablet tab, PO, 2015 Medical Daily, # 30 Center tab, 0 Refill(s) Lasix Notes: (Same Inactive 06/15[facility] as: Lasix) 2016 Medical May cause GI Center upset. Give with food or milk. Magnesium Oxide Notes: (Same Inactive [facility] as: Clipcopia-Ox 2016 Medical 400) [facility] Magnesium oxide [id number] elemental magnesium Dose=____mg magnesium oxide (___mg elemental magnesium) Magnesium Oxide Notes: (Same Inactive 06/13[facility] as: [facility]-Ox 2016 Medical 400) [place] Magnesium oxide [id number] elemental magnesium Dose=____mg magnesium oxide (___mg elemental magnesium) 24 HR Nifedipine Notes: (Same Inactive H [place] 30 MG Extended as: Adalat 2015 Medica l Release Tablet CC, Procardia [place] [Procardia] XL) Give on empty stomach. Take 1 hour before or 2 hours after meal; "Avoid grapefruit and grapefruit juice". Do not crush hydrALAZINE 50 mg Notes: (Same No Longer [place] oral tablet as: Active 2015 Medical Apresoline) Center May interfere w/enteral feedings Take With Food Wellbutrin XL Notes: (Same No Longer [place] as: Active 2015 Medical Wellbutrin Center XL) "Do Not Crush" Norvasc Notes: (Same Inactive [place] as: Norvasc) 2016 [facility] Center Insulin Glargine Notes: Same No Longer H [place] 100 UNT/ML as: Lantus) Active 2015 Medical Injectable Do not hold Center Solution [Lantus] insulin without contacting prescriber WASTE: F/P - Black; E - Municipal Trash Bin 1 ML paliperidone IM, qMonth, 0 Active [place] palmitate 156 Refill(s) 2015 Medical MG/ML Prefilled Center Syringe [Invega] amLODIPine 10 mg 10 mg = 1 No Longer [place] oral tablet tab, PO, Active 2015 Medical Daily, 0 Center Refill(s) pravastatin 40 mg 40 mg = 1 No Longer [place] oral tablet tab, PO, Active 2015 Medical Daily, 0 Center Refill(s) Sertraline 100 MG 200 mg = 2 Active [place] Oral Tablet tab, PO, 2016 Medical [Zoloft] Daily, 0 Center Refill(s) pantoprazole 40 40 mg = 1 Active Baljinder as MG Enteric Coated tab, PO, 2016 Medic al Tablet [Protonix] Daily, 0 Cente r Refill(s) gabapentin 300 MG 1 CAP PO BID Active H [place] Oral Capsule AND 1 CAP AT 2016 Medica l BEDTIME, 0 Center Refill(s) Insulin, Aspart, 10 unit, No Longer [place] Human 100 UNT/ML SUB-Q, Active 2015 Medical Injectable TID-Meals, # Center Solution 10 mL, 0 [NovoLog] Refill(s) buPROPion 150 mg 150 mg = 1 Active [place] oral tablet, tab, PO, 2015 Medical extended release Daily, 0 Center Refill(s) Hydralazine 75 mg = 3 No Longer [place] Hydrochloride 25 tab, PO, Active 2015 Medica l MG Oral Tablet Daily, 0 Center Refill(s) metoprolol 100 mg 100 mg = 1 No Longer 06/12/ H [place] oral tablet, tab, PO, Active 2015 Medical extended release Daily, # [address] tab, 0 Refill(s) Insulin Glargine 50 unit, No Longer [place] 100 UNT/ML SUB-Q, Daily, Active 2015 Medical Injectable 0 Refill(s) Center Solution [Lantus] Regular Insulin, 25 unit, No Longer [place] Human 100 UNT/ML SUB-Q, Active 2015 Medical Injectable TID-Meals, 0 Center Solution [Humulin Refill(s) R] 24 HR Divalproex 500 mg = 1 Active [place] Sodium 500 MG tab, PO, QAM, 2016 Medi [place] Extended Release AND 2 TAB AT Ce nter Tablet [Depakote] BEDTIME, 0 Refill(s) atorvastatin Notes: (Same No Longer [place] as: Lipitor) Active 2016 [facility] Lactulose Notes: (Same [place] Long[place] as:Chronulac) Active 2016 [facility] Furosemide Notes: (Same No Longer Baljinder as as: Lasix) Active 2016 [facility] Center MEDICATION WASTE Product Size: 40 mg Product Wasted: ___ mg Aspirin 81 MG Notes: Take No Longer [place] Chewable Tablet with food. Active 2015 Medic al [place] gabapentin 300 MG Notes: (Same No Longer [place] Oral Capsule as: Active 2016 [facility] Neurontin) [facility] Divalproex Sodium Notes: (Same No Longer [place] 500 MG Enteric as: Depakote Active 2015 Medi tawnya Coated Tablet ER) Once Center [Depakote] daily dosing; indicated for migraines. Divalproex sodium extended-rele ase tab. Do not chew or crush. "Do Not Crush" Aspirin 81 mg, Route: No Longer [place] PO, Drug Active 2015 Medical form: ECTAB, Center Daily, Dosing Weight 86.364, kg, Start date: 06/11/16 9:00:00 SENIOR CONTRACTS ADMINISTRATOR, Duration: 30 day, Stop date: 07/10/16 9:00:00 SENIOR CONTRACTS ADMINISTRATOR Insulin Glargine Notes: Same No Longer H [place] 100 UNT/ML as: Lantus) Active 2016 Medical Injectable Do not hold Center Solution [Lantus] insulin without contacting prescriber WASTE: F/P - Black; E - Municipal Trash Bin Zoloft Notes: (Same No Longer [place] as: Zoloft) Active 2016 Medical Center Insulin, Aspart, Notes: Roll No Longer 06/11/ M H [place] Human in palms of Active 2016 Medical hands gently; Center Do not shake vigorously. (Same as: NovoLOG) "single patient use only" WASTE: F/P - Black; E - Municipal Trash Bin Stable for 28 days at room temperature. Expires in days from _Date heparin sodium, Notes: No Longer Baljinder as porcine 2500 porcine Active 2016 Medical UNT/ML Injectable heparin Center Solution Albuterol 0.833 Notes: (Same No Longer H [place] MG/ML / as: Duoneb) Active 2016 Medical Ipratropium [place] 0.167 MG/ML Inhalant Solution [DuoNeb] gabapentin 300 MG 300 mg, Inactive [place] Oral Capsule Route: PO, 2016 Medical Drug form: Center CAP, Q12H, Dosing Weight 86.364, kg, (CrCl 30 - 59 ml/min), Start date: 06/10/16 21:00:00 SENIOR CONTRACTS ADMINISTRATOR, Duration: 30 day, Stop date: 07/10/16 9:00:00 SENIOR CONTRACTS ADMINISTRATOR divalproex sodium Notes: (Same No Longer [place] as: Depakote Active 2016 Medical ER) Once Center daily dosing; indicated for migraines. Divalproex sodium extended-rele ase tab. Do not chew or crush. "Do Not Crush" Losartan Notes: (Same No Longer [place] as: Cozaar) Active 2016 Medical Center Insulin, Aspart, Notes: Roll No Longer 12/22/ M H [place] Human in palms of Active 2015 Medical hands gently; Center Do not shake vigorously. (Same as: NovoLOG) "single patient use only" WASTE: F/P - Black; E - Municipal Trash Bin Stable for 28 days at room temperature. Expires in days from _Date Dextrose 50% 12.5 gm, 25 [place] Longer [place] Syringe mL, Route: Active 2015 Medical IVP, Drug Center Form: INJ, Dosing Weight 86.364, kg, PRN, PRN Blood Glucose Results, Start date: 06/10/16 18:50:00 SENIOR CONTRACTS ADMINISTRATOR, Duration: 30 day, Stop date: 07/10/16 18:49:00 SENIOR CONTRACTS ADMINISTRATOR Glucagon 1 mg, Route: No Longer [place] IM, Drug Active 2015 Medical form: Center PDR/INJ, PRN, Dosing Weight 86.364, kg, PRN Blood Glucose Results, Start date: 06/10/16 18:50:00 SENIOR CONTRACTS ADMINISTRATOR, Duration: 30 day, Stop date: 07/10/16 18:49:00 SENIOR CONTRACTS ADMINISTRATOR Hydralazine Notes: (Same [place] Longer [place] as: Active 2015 Medical Apresoline) Center Push over 5 minutes Hydralazine Notes: (Same [place] Longer [place] as: Active 2015 Medical Apresoline) Center May interfere w/enteral feedings Take With Food metoprolol Notes: (Same No Longer Baljinder as extended release as: Toprol Active 2015 Medi [place]wn[place] XL) May Center split tab, but do not crush. Hydralazine 10 mg, Route: Inactive [place] IV, ONCE, 2015 Medical Dosing Weight Center 86.364, kg, Start date: 06/10/16 18:06:00 SENIOR CONTRACTS ADMINISTRATOR, Stop date: 06/10/16 18:06:00 SENIOR CONTRACTS ADMINISTRATOR hydrOXYzine Notes: (Same No Longer [place] pamoate as: Vistaril) Active 2015 Medical Center Furosemide 60 mg, Route: Inactive Baljinder as IVP, Drug 2015 Medical form: INJ, Center ONCE, Dosing Weight 86.364, kg, Start date: 06/10/16 16:32:00 SENIOR CONTRACTS ADMINISTRATOR, Stop date: 06/10/16 16:32:00 SENIOR CONTRACTS ADMINISTRATOR Lasix Notes: (Same Inactive [place] as: Lasix) 2015 Medical Center MEDICATION WASTE Product Size: 40 mg Product Wasted: _0__ mg Albuterol 0.833 Notes: (Same No Longer 06/10/ H [place] MG/ML / as: Duoneb) Active 2015 [facility] Ipratropium [place] 0.167 MG/ML Inhalant Solution [DuoNeb] Promethazine 25 mg = 1 Active [facility] Hydrochloride 25 supp, RI, 2015 Medic al MG Rectal Q6H, Nausea & Center Suppository Vomiting, # 9 [Phenergan] supp, 0 Refill(s) Ondansetron 4 MG Special Active s Disintegrating Instructions: 2014 Med ical Tablet [Zofran] Dissolve tab [place] [address] under tongue Metoclopramide 10 10 mg = 1 Active [place] MG Oral Tablet tab, PO, QID, 2014 Med ical [Reglan] # 40 tab, 0 Center Refill(s) Erythromycin 500 = 1 tab, PO, Active [facility] MG Enteric Coated Q6H, # 40 2015 Medi [place] Tablet tab, 0 Center Refill(s) Hydromorphone Notes: Same Inactive [place] as: Dilaudid 2014 [facility] hydrOXYzine 0 Refill(s) Active [facility] pamoate [address] [place] [address] Dicyclomine 0 Refill(s) Active [address] Ondansetron 0 Refill(s) Active [address] Benztropine 0 Refill(s) Active [address] Clonidine 0 Refill(s) Active [address] Zoloft 0 Refill(s) Active [address] Metoclopramide 0 Refill(s) [place] [address] [place] [address] Erythromycin 0 Refill(s) [place] [address] [place] [address] Tramadol 0 Refill(s) Active [address] Depakote 0 Refill(s) Active [address] quetiapine 0 Refill(s) Active [address] Sodium Chloride 2,000 mL, Inactive [place] 0.154 MEQ/ML 1,000 ml/hr, 2014 Medica l Injectable Infuse Over: Center Solution 2 hr, Route: IV, 2,000, Drug form: INJ, ONCE, Priority: STAT, Dosing Weight 75 kg, Start date: 06/26/14 4:56:00, Duration: 1 doses or times, Stop date: 06/26/14 4:56:00 Lorazepam Notes: (Same Inactive [facility] as: Ativan) [address] [place] [address] Metoclopramide Notes: (Same Inactive [facility] as: Reglan) [address] [place] [address] Zofran ODT 4 mg 4 mg, 1 tab, Active [facility] oral tablet, PO, BID, PRN, 2012 [facility] disintegrating Dissolve tab under tongue, 10 tab, Nausea and Vomiting, Substitution AllowedDissol ve tab under tongue Saline Flush 0.9% 5 mL, Route: No Longer Marry IVP, Drug Active 2012 [facility] Form: INJ, Dosing Weight 63.636, kg, PRN, PRN Line Flush, Start date: 04/14/13 23:10:00, Duration: 24 hr, Stop date: 04/15/13 23:09:00(Same as: BD Posiflush) morphine Sulfate 4 mg, Route: No Longer [place] IVP, ONCE, Active 2012 [facility] Dosing Weight 63.636, kg, Priority: STAT, Start date: 04/14/13 23:10:00, Stop date: 04/14/13 23:10:00 ketorolac 30 mg, Route: No Longer [place] IVP, ONCE, 2012 [facility] Dosing Weight 63.636, kg, Priority: STAT, Start date: 04/14/13 23:10:00, Stop date: 04/14/13 23:10:00 ondansetron 4 mg, Route: No Longer [place] IVP, ONCE, 2012 [facility] Dosing Weight 63.636, kg, Priority: STAT, Start date: 04/14/13 23:10:00, Stop date: 04/14/13 23:10:00 Sodium Chloride 1,000 mL, No Longer Marry 0.9% IV 1,000 mL Rate: 125 Active [facility] ml/hr, Infuse over: 8 hr, Route: IV, Dosing Weight 63.636 kg, Total Volume: 1,000, Start date: 04/14/13 23:10:00, Duration: 30 day, Stop date: 05/14/13 23:09:00 morphine Sulfate 5 mg, Route: IVP No Longer [place] IVP, ONCE, 2011 [facility] Dosing Weight 58.636, kg, Priority: STAT, Start date: 03/14/12 20:15:00, Stop date: 03/14/12 20:15:00 Sodium Chloride 500 mL, Rate: IV No Longer [facility] 0.9% (Bolus) IV 500 ml/hr, 2011 [facility] 500 mL Infuse over: 1 hr, Route: IV, kg, Total Volume: 500, Bolus Dose, Priority: STAT, Start date: 03/14/12 18:45:00, Duration: 1 doses or times, Stop date: 03/14/12 19:44:00 ondansetron 4 mg, Route: IVP No Longer Hernandez IVP, ONCE, 2011 [facility] Dosing Weight 58.636, kg, Priority: STAT, Start date: 03/14/12 17:19:00, Stop date: 03/14/12 17:19:00 morphine Sulfate 5 mg, Route: IVP No Longer Hernandez IVP, ONCE, 2011 [facility] Dosing Weight 58.636, kg, Priority: STAT, Start date: 03/14/12 17:19:00, Stop date: 03/14/12 17:19:00 pantoprazole 40 mg, Route: IVP No Longer Hernandez IVP, ONCE, 2011 [facility] Dosing Weight 58.636, kg, For IV push reconstitute with 10 ml 0.9% sodium chloride and push over at least 3 minutes, Priority: STAT, Start date: 03/14/12 17:19:00, Stop date: 03/14/12 17:19:00 Sodium Chloride 500 mL, Rate: IV No Longer Hernandez 0.9% (Bolus) IV 1,000 ml/hr, Active 2011 [facility] 500 mL Infuse over: 0.5 hr, Route: IV, kg, Total Volume: 500, Bolus dose, Priority: STAT, Start date: 03/14/12 17:19:00, Duration: 1 doses or times, Stop date: 03/14/12 17:48:00 Reglan 10 mg oral 10 mg, 1 tab, PO Active [facility] tablet PO, 2011 Medical QID-Before Center Meals, 120 tab, 1, 1, Substitution Allowed insulin 10 unit, 0.1 SUB-Q No Longer [facility] isophane-NPH mL, Route: Active 2011 Medical SUB-Q, Drug Center form: INJ, Bedtime, Start date: 11/29/11 21:00:00, Duration: 30 day, Stop date: 12/28/11 21:00:00 Insulin regular 8 unit, 0.08 SUB-Q No Longer [facility] mL, Route: Active 2011 Medical SUB-Q, Drug Center form: SOLN, Bedtime, Start date: 11/29/11 21:00:00, Duration: 30 day, Stop date: 12/28/11 21:00:00 trazodone 100 mg 200 mg, 2 PO No Longer [facility] oral tablet tab, Route: Active 2011 Medical PO, Drug Center form: TAB, Bedtime, Start date: 11/29/11 21:00:00, Duration: 30 day, Stop date: 12/28/11 21:00:00 Geodon 120 mg, 3 PO No Longer [facility] cap, Route: Active 2011 Medical PO, Drug Center form: CAP, Bedtime, Start date: 11/29/11 21:00:00, Duration: 30 day, Stop date: 12/28/11 21:00:00 amLODipine 5 mg, 1 tab, PO No Longer [facility] [place] Route: PO, Active 2011 Medical Drug form: Center TAB, ONCE, Priority: NOW, Start date: 11/29/11 20:11:00, Stop date: 11/29/11 20:11:00 morphine Sulfate 2 mg, Route: IVP No Longer Omidvar Micki IVP, ONCE, Active 2011 Medical Start date: Center 11/29/11 16:33:00, Stop date: 11/29/11 16:33:00 morphine Sulfate 2 mg, 0.5 mL, IVP No Longer Omidvar [facility] Route: IVP, Active 2011 Medical Drug form: [place] INJ, ONCE, Start date: 11/29/11 16:32:00, Stop date: 11/29/11 16:32:00 Tylenol 650 mg, 2 PO No Longer Omidvar [facility] tab, Route: Active 2011 Medical PO, Drug Center form: TAB, Q4H, PRN Pain, Start date: 11/29/11 14:16:00, Duration: 30 day, Stop date: 12/29/11 14:15:00 insulin 14 unit, 0.14 SUB-Q No Longer [place] isophane-NPH mL, Route: Active 2011 Medical SUB-Q, Drug Center form: INJ, Daily, Start date: 11/29/11 9:00:00, Duration: 30 day, Stop date: 12/28/11 9:00:00 Insulin regular 10 unit, 0.1 SUB-Q No Longer Gunnar [facility] mL, Route: Active 2011 Medical SUB-Q, Drug Center form: SOLN, Daily, Start date: 11/29/11 9:00:00, Duration: 30 day, Stop date: 12/28/11 9:00:00 Effexor XR 75 mg, 1 cap, PO No Longer [place] Route: PO, Active 2011 Medical Drug form: [place] ERCAP, Daily, Start date: 11/29/11 9:00:00, Duration: 30 day, Stop date: 12/28/11 9:00:00 lisinopril 40 mg, 2 tab, PO No Longer [place] Route: PO, Active 2011 Medical Drug form: Center TAB, Daily, Start date: 11/29/11 9:00:00, Duration: 30 day, Stop date: 12/28/11 9:00:00 benztropine 1 mg, 1 tab, PO No Longer [place] Route: PO, Active 2011 Medical Drug form: Center TAB, BID, Start date: 11/29/11 9:00:00, Duration: 30 day, Stop date: 12/28/11 17:00:00 amLODipine 5 mg, 1 tab, PO No Longer [place] Route: PO, Active 2011 Medical Drug form: [place] TAB, Daily, Start date: 11/29/11 9:00:00, Duration: 30 day, Stop date: 12/28/11 9:00:00 insulin aspart 10 unit, 0.1 SUB-Q No Longer Gunnar 11/28[facility] [place] mL, Route: Active 2011 Medical SUB-Q, Drug Center form: SOLN, TID-Before Meals, PRN Blood Glucose Results, Start date: 11/29/11 1:30:00, Duration: 30 day, Stop date: 12/29/11 1:29:00 Dextrose 50% 25 gm, 50 mL, IVP No Longer Gunnar [facility] Syringe Route: IVP, Active 2011 Medical Drug Form: Center INJ, PRN, PRN Blood Glucose Results, Start date: 11/29/11 1:30:00, Duration: 30 day, Stop date: 12/29/11 1:29:00 glucagon 1 mg, Route: IM No Longer [place] IM, Drug Active 2011 Medical form: Center PDR/INJ, PRN, PRN Blood Glucose Results, Start date: 11/29/11 1:30:00, Duration: 30 day, Stop date: 12/29/11 1:29:00 normal saline 1,000 mL, IV No Longer [place] 0.9% IV 1,000 mL Rate: 200 Active 2011 Medic al ml/hr, Infuse Center over: 5 hr, Route: IV, Dosing Weight 57.273 kg, Total Volume: 1,000, Start date: 11/29/11 1:29:00, Duration: 30 day, Stop date: 12/29/11 1:28:00 Saline Flush 0.9% 5 ml, Route: IVP No Longer Gunnar [facility] IVP, Drug Active 2011 Medical Form: INJ, Center PRN, PRN Line Flush, Start date: 11/29/11 1:28:00, Duration: 30 day, Stop date: 12/29/11 1:27:00 ondansetron 4 mg, 2 mL, IVP No Long[place] Route: IVP, Active 2011 Medical Drug form: [place] INJ, Q8H, PRN Nausea & Vomiting, Start date: 11/29/11 1:28:00, Duration: 30 day, Stop date: 12/29/11 1:27:00 Reglan 10 mg, 2 mL, IVP No Longer [facility] 11/28[facility] Route: IVP, Active 2011 Medical Drug form: [place] INJ, Q6H, Priority: STAT, Start date: 11/29/11 1:28:00, Duration: 30 day, Stop date: 12/29/11 0:00:00 Protonix 40 mg, Route: IV No Longer [facility] Baljinder as IV, Drug Active 2011 Medical form: INJ, Center ONCE, Priority: STAT, Start date: 11/29/11 1:28:00, Stop date: 11/29/11 1:28:00 metoclopramide 10 mg, 2 mL, IVP No Longer [facility] 11/28[facility] Route: IVP, Active 2011 Medical Drug form: Center INJ, ONCE, Priority: STAT, Start date: 11/28/11 23:01:00, Stop date: 11/28/11 23:01:00 Zofran 4 mg, 2 mL, IVP No Longer [facility] 11/28[facility] Route: IVP, Active 2011 Medical Drug form: Center INJ, ONCE, Priority: STAT, Start date: 11/28/11 21:31:00, Stop date: 11/28/11 21:31:00 NS (Bolus) IV 1,000 mL, IV No Longer [facility] Baljinder as 1,000 mL Rate: 1,000 2011 Medical ml/hr, Infuse Center over: 1 hr, Route: IV, Dosing Weight 57.273 kg, Total Volume: 1,000, Start date: 11/28/11 17:48:00, Duration: 30 day, Stop date: 12/28/11 17:47:00 NS (Bolus) IV 1,000 mL, IV No Longer Domenico Baljinder as 1,000 mL Rate: 1,000 2011 Medical ml/hr, Infuse Center over: 1 hr, Route: IV, Dosing Weight 57.273 kg, Total Volume: 1,000, Start date: 11/28/11 15:36:00, Duration: 30 day, Stop date: 12/28/11 15:35:00 Ativan 2 mg, 1 mL, IVP No Longer Domenico [facility] Route: IVP, Active 2011 Medical Drug form: Center INJ, ONCE, Priority: STAT, Start date: 11/28/11 15:35:00, Stop date: 11/28/11 15:35:00 Novolin R 100 8 unit, SUB-Q Active [facility] Baljinder as units/mL SUB-Q, Q12H, 2011 Medical injectable 2 vial, Center solution Substitution Allowed, SOLN Novolin N 100 10 unit, SUB-Q Active [facility] [place] units/mL SUB-Q, 2011 Medical subcutaneous Bedtime, 10 Center injection ml, Substitution Allowed, SUSP Novolin N 100 14 unit, SUB-Q Active [facility] [place] units/mL SUB-Q, QAM, 1 2011 Medical subcutaneous vial, Center injection Substitution Allowed, SUSP magnesium oxide 400 mg, 1 PO No Longer [facility] tab, Route: Active 2011 Medical PO, Drug Center form: TAB, ONCE, Priority: STAT, Start date: 09/18/11 9:55:00, Stop date: 09/18/11 9:55:00 Insulin regular 8 unit, 0.08 SUB-Q No Longer [facility] 09/17 [facility] mL, Route: Active 2011 Medical SUB-Q, Drug Center form: SOLN, ONCE, Priority: STAT, Start date: 09/18/11 9:22:00, Stop date: 09/18/11 9:22:00 Lactated Ringers 1,000 mL, IV No Longer [facility] (Bolus) IV 1,000 Rate: 1,000 Active 2011 Med ical mL ml/hr, Infuse Center over: 1 hr, Route: IV, Total Volume: 1,000, Bolus Dose, Priority: STAT, Start date: 09/18/11 9:16:00, Duration: 1 doses or times, Stop date: 09/18/11 10:15:00 Sodium Chloride 1,000 mL, IV No Longer [facility] 0.9% (Bolus) IV Rate: 1,000 Active 2011 Medi [place] 1000 mL ml/hr, Infuse Center over: 1 hr, Route: IV, kg, Total Volume: 1,000, Bolus Dose, Priority: STAT, Start date: 09/18/11 9:06:00, Duration: 1 doses or times, Stop date: 09/18/11 10:05:00 sulfamethoxazole Substitution Active [place] Allowed [facility] Sodium Chloride 1,000 mL, IV No Longer [facility] [place] 0.9% (Bolus) IV Rate: 1,000 Active 2011 Medi [place] 1000 mL ml/hr, Infuse Center over: 1 hr, Route: IV, kg, Total Volume: 1,000, Bolus Dose, Priority: STAT, Start date: 09/18/11 8:56:00, Duration: 1 doses or times, Stop date: 09/18/11 9:55:00 clindamycin 300 mg, 2 PO No Longer Anabelle [place] cap, Route: Active 2011 Medical PO, Drug Center form: CAP, Q8H, Start date: 09/09/11 16:00:00, Duration: 30 day, Stop date: 10/09/11 8:00:00 Colace 100 mg 100 mg, 1 PO Active [place] oral capsule cap, PO, BID, 2011 Medic al 60 cap, Center Substitution Allowed, CAP clindamycin 150 300 mg, 2 PO Active [place] mg oral capsule cap, PO, Q8H, 2011 Me dical 30 cap, Center Substitution Allowed, CAP [place] 10/325 oral 1 tab, PO, PO Active Zeeshan [place] tablet Q4H, PRN, 2011 Medical tab, Pain, Center Substitution Allowed, Maintenance, TAB [place] 10/325 oral 1 tab, Route: PO No Longer Mahi [place] tablet PO, Drug Active 2011 Medical Form: TAB, Center Q4H, Start date: 09/09/11 4:00:00, Duration: 30 day, Stop date: 10/09/11 0:00:00 Colace 100 mg 100 mg, 1 PO No Longer Omidvar Baljinder as oral capsule cap, Route: Active 2011 Medical PO, Drug Center form: CAP, BID, Start date: 09/07/11 17:00:00, Duration: 30 day, Stop date: 10/07/11 9:00:00 enalapril 5 mg, 1 tab, PO No Longer Omidvar [place] Route: PO, Active 2011 Medical Drug form: Center TAB, Daily, Start date: 09/07/11 10:30:00, Duration: 30 day, Stop date: 10/07/11 9:00:00 flumazenil 0.2 mg, 2 mL, IVP No Longer [place] Route: IVP, Active 2011 Medical Drug form: Center INJ, PRN, PRN Benzodiazepin e Reversal, Initial dose, Start date: 09/07/11 9:19:00, Duration: 1 day, Stop date: 09/08/11 9:18:00 naloxone 0.04 mg, 0.1 IVP No Longer [place] Micki mL, Route: Active 2011 Medical IVP, Drug Center form: INJ, Q2MIN, PRN Narcotic Reversal, Start date: 09/07/11 9:19:00, Duration: 8 doses or times, Stop date: Limited # of times ondansetron 4 mg, 2 mL, IVP No Longer Gavin Baljinder as Route: IVP, Active 2011 Medical Drug form: Center INJ, ONCE, PRN Nausea & Vomiting, Start date: 09/07/11 9:19:00 hydromorphone 0.5 mg, 0.25 IVP No Longer Gavin [place] mL, Route: Active 2011 Medical IVP, Drug Center form: INJ, Q5Min, PRN Pain Score 4-6, Start date: 09/07/11 9:19:00, Duration: 5 doses or times, Stop date: Limited # of times acetaminophen-hyd 15 mL, Route: PO No Longer [place] Micki rocodone 325 PO, Drug Active 2011 Medical mg-10 mg/15 mL Form: SOLN, Cente r oral solution Q4H, PRN Pain Score 4-6, Start date: 09/07/11 9:19:00, Duration: 1 day, Stop date: 09/08/11 8:00:00 Lactated Ringers 1,000 mL, IV No Longer Omidvar [place] IV 1,000 mL Rate: 125 Active 2011 Medical ml/hr, Infuse Center over: 8 hr, Route: IV, Dosing Weight 68.182 kg, Total Volume: 1,000, Start date: 09/07/11 9:06:00, Duration: 30 day, Stop date: 10/07/11 9:05:00 clindamycin 600 mg, IVPB No Longer Arias [facility] Route: IVPB, Active 2011 Medical ONCE, Start Center date: 09/07/11 8:31:00, Stop date: 09/07/11 8:31:00 normal saline 1,000 mL, IV No Longer [place] 0.9% IV 1,000 mL Rate: 100 Active 2011 Medic al ml/hr, Infuse Center over: 10 hr, Route: IV, Dosing Weight 68.18 kg, Total Volume: 1,000, Start date: 09/07/11 0:00:00, Duration: 30 day, Stop date: 10/06/11 23:59:00 normal saline 1,000 mL, IV No Longer [place] 0.9% IV 1000 mL Rate: 100 2011 Medica l ml/hr, Infuse Center over: 10 hr, Route: IV, kg, Total Volume: 1,000, Start date: 09/06/11 8:25:00, Duration: 30 day, Stop date: 10/06/11 8:24:00 senna 8.6 mg oral 8.6 mg, 1 PO No Longer Omidvar [facility] tablet tab, Route: Active 2011 Medical PO, Drug Center Form: TAB, BID, PRN as needed for constipation, Start date: 09/05/11 10:00:00, Duration: 30 day, Stop date: 10/05/11 9:00:00 Colace 100 mg 100 mg, 1 PO No Longer Omidvar Baljinder as oral capsule cap, Route: Active 2011 Medical PO, Drug Center form: CAP, BID, PRN as needed for constipation, Start date: 09/05/11 10:00:00, Duration: 30 day, Stop date: 10/05/11 9:00:00 potassium 40 mEq, 2 PO No Longer Omidvar [facility] chloride tab, Route: Active 2011 Medical PO, Drug Center form: ERTAB, ONCE, Start date: 09/05/11 9:11:00, Stop date: 09/05/11 9:11:00 Dulcolax Laxative 10 mg, 2 tab, PO No Longer Wong [place] Route: PO, Active 2011 Medical Drug form: Center ECTAB, Daily, PRN Constipation, Priority: NOW, Start date: 09/04/11 23:00:00, Duration: 30 day, Stop date: 10/04/11 22:59:00 Zofran 4 mg, 2 mL, IV No Longer Peg [place] Route: IV, Active 2011 Medical Drug form: Center INJ, Q4H, PRN as needed for nausea/vomiti ng, Priority: NOW, Start date: 09/04/11 18:11:00, Duration: 30 day, Stop date: 10/04/11 18:10:00 [place] 10/325 oral 1 tab, Route: PO No Longer Dez [place] tablet PO, Drug Active 2011 Medical Form: TAB, Center Q4H, Start date: 09/04/11 12:00:00, Duration: 30 day, Stop date: 10/04/11 8:00:00 Sodium Chloride 320 mL, Rate: NERVE No Longer Kavon 09/03 [place] 0.9% IV 320 mL + 10 ml/hr, BLOCK Active 2011 Medic al ropivacaine 1% Infuse over: Cent er 800 mg + Q-Pump 1 40 hr, Route: ea NERVE BLOCK, Dosing Weight 68.182 kg, Total Volume: 400, Start date: 09/04/11 10:01:00, Duration: 7 day, Stop date: 09/11/11 10:00:00 ondansetron 4 mg, 2 mL, IVP No Longer Kavon [place] Route: IVP, Active 2011 Medical Drug form: [...] 0.04 mg, 0.1 IVP No Longer [place] mL, Route: Active 2011 Medical IVP, Drug Center form: INJ, Q2MIN, PRN Narcotic Reversal, Start date: 09/04/11 9:50:00, Duration: 30 day, Stop date: 10/04/11 9:49:00 [place] 10/325 oral 1 tab, Route: PO No Longer Omidvar [place] tablet PO, Drug Active 2011 Medical Form: TAB, Center Q4H, PRN Pain, Start date: 09/04/11 9:49:00, Stop date: 10/04/11 9:48:00 labetalol 5 mg, Route: IV No Longer Puga Baljinder as IV, ONCE, Active 2011 Medical Start date: Center 09/04/11 9:40:00, Stop date: 09/04/11 9:40:00 ondansetron 4 mg, 2 mL, IVP No Longer Hayden Baljinder as Route: IVP, Active 2011 Medical Drug form: Center INJ, ONCE, PRN Nausea & Vomiting, Start date: 09/04/11 8:37:00 naloxone 0.04 mg, 0.1 IVP No Longer Hayden [place] mL, Route: Active 2011 Medical IVP, Drug Center form: INJ, Q2MIN, PRN Narcotic Reversal, Start date: 09/04/11 8:37:00, Duration: 8 doses or times, Stop date: Limited # of times meperidine 12.5 mg, 0.5 IVP No Longer Hayden Baljinder as mL, Route: Active 2011 Medical IVP, Drug Center form: INJ, Q30Min, PRN Other -See Comment, For shivering, Start date: 09/04/11 8:37:00, Duration: 2 doses or times, Stop date: Limited # of times flumazenil 0.2 mg, 2 mL, IVP No Longer [place] Route: IVP, Active 2011 Medical Drug form: Center INJ, PRN, PRN Benzodiazepin e Reversal, Initial dose, Start date: 09/04/11 8:37:00, Duration: 1 day, Stop date: 09/05/11 8:36:00 hydromorphone 0.5 mg, 0.25 IVP No Longer Kavon [place] mL, Route: Active 2011 Medical IVP, Drug Center form: INJ, Q5Min, PRN Pain Score 4-6, Start date: 09/04/11 8:37:00, Duration: 5 doses or times, Stop date: Limited # of times clindamycin 600 mg, 4 mL, IVPB No Longer [place] Route: IVPB, Active 2011 Medical [id number], Start Center date: 09/03/11 11:00:00, Duration: 30 day, Stop date: 10/03/11 8:00:00 potassium 40 mEq, 2 PO No Longer Omidvar [facility] chloride tab, Route: Active 2011 Medical PO, Drug Center form: ERTAB, ONCE, Start date: 09/03/11 8:39:00, Stop date: 09/03/11 8:39:00 [place] 5/325 oral 1 tab, Route: PO No Longer Kavon 08/19 [facility] tablet PO, Drug Active 2011 Medical Form: TAB, Center Q4H, Start date: 09/03/11 0:00:00, Duration: 30 day, Stop date: 10/02/11 20:00:00 Geodon 120 mg, 3 PO No Longer Anabelle [place] cap, Route: Active 2011 Medical PO, Drug Center form: CAP, Bedtime, Start date: 09/02/11 21:00:00, Duration: 30 day, Stop date: 10/01/11 21:00:00 trazodone 100 mg 200 mg, 4 PO No Longer Anabelle [place] oral tablet tab, Route: Active 2011 Medical PO, Drug Center form: TAB, Bedtime, Start date: 09/02/11 21:00:00, Duration: 30 day, Stop date: 10/01/11 21:00:00 Effexor XR 75 mg, 1 cap, PO No Longer [place] Route: PO, Active 2011 Medical Drug form: [place] ERCAP, Daily, Give qAM after today's dose., Start date: 09/02/11 12:00:00, Duration: 30 day, Stop date: 10/02/11 9:00:00 [place] 5/325 oral 1 tab, Route: PO No Longer Kavon 08/19 [facility] [place] tablet PO, Drug Active 2011 Medical Form: TAB, [place] Q4H, PRN Pain, Start date: 09/02/11 11:25:00, Duration: 30 day, Stop date: 10/02/11 11:24:00 magnesium sulfate 4 gm, 50 mL, IVPB No Longer Omidvar [facility] Route: IVPB, Active 2011 Medical Drug form: [place] INJ, ONCE, Start date: 09/02/11 11:15:00, Stop date: 09/02/11 11:15:00 Lovenox 40 mg, 0.4 SUB-Q No Longer Movva [facility] mL, Route: Active 2011 Medical SUB-Q, Drug Center form: INJ, Daily, Start date: 09/02/11 9:00:00, Duration: 30 day, Stop date: 10/01/11 9:00:00 vancomycin 1 gm, Route: IVPB No Longer Anabelle Baljinder as IVPB, Drug Active 2011 Medical form: INJ, [place] [id number], Start date: 09/02/11 9:00:00, Duration: 30 day, Stop date: 10/01/11 21:00:00 clindamycin 600 mg, 4 mL, IVPB No Longer [place] (SCIP[place] Route: IVPB, Active 2011 Medical [id number], Start Center date: 09/02/11 5:00:00, Duration: 3 doses or times, Stop date: 09/02/11 21:00:00 clindamycin 600 mg, 4 mL, IVPB No Longer [place] Micki (SCIP) Route: IVPB, Active 2011 [facility] [place] [id number], Start Center date: 09/01/11 23:00:00, Duration: 3 doses or times, Stop date: 09/02/11 15:00:00 insulin 15 unit, 0.15 SUB-Q No Longer Omidvar [facility] isophane-NPH mL, Route: Active 2011 Medical SUB-Q, Drug Center form: INJ, Q12H, Start date: 09/01/11 21:00:00, Stop date: 10/01/11 9:00:00 labetalol 5 mg, Route: IVP No Longer Feliciano Baljindera s IVP, Q5Min, Active 2011 Medical PRN Elevated Center BP, Start date: 09/01/11 20:07:00, Duration: 5 doses or times, Stop date: Limited # of times hydrALAZINE 5 mg, Route: IVP No Longer [place] IVP, Q5Min, Active 2011 Medical PRN Elevated Center BP, Start date: 09/01/11 20:07:00, Duration: 4 doses or times, Stop date: Limited # of times hydromorphone 0.5 mg, IVP No Longer Feliciano [facility] Route: IVP, Active 2011 Medical Q5Min, PRN Center Pain Score 4-6, Start date: 09/01/11 20:07:00, Duration: 5 doses or times, Stop date: Limited # of times naloxone 0.04 mg, IVP No Longer Feliciano [facility] Route: IVP, Active 2011 Medical Q2MIN, PRN Center Narcotic Reversal, Start date: 09/01/11 20:07:00, Duration: 8 doses or times, Stop date: Limited # of times flumazenil 0.2 mg, IVP No Longer Feliciano [facility] Route: IVP, Active 2011 Medical PRN, PRN Center Benzodiazepin e Reversal, Initial dose, Start date: 09/01/11 20:07:00, Duration: 30 day, Stop date: 10/01/11 20:06:00 ondansetron 4 mg, Route: IVP No Longer [place] IVP, ONCE, Active 2011 Medical PRN Nausea & Center Vomiting, Start date: 09/01/11 20:07:00 vancomycin 1 gm, Route: IVPB No Longer Gauvain Baljinder as IVPB, Drug Active 2011 Medical form: INJ, Center [id number], Start date: 09/01/11 20:00:00, Duration: 30 day, Stop date: 10/01/11 8:00:00 Lactated Ringers 1,000 mL, IV No Longer Wong [facility] IV 1,000 mL Rate: 125 Active 2011 Medical ml/hr, Infuse Center over: 8 hr, Route: IV, Dosing Weight 68.2 kg, Total Volume: 1,000, Start date: 09/01/11 19:55:00, Duration: 30 day, Stop date: 10/01/11 19:54:00 vancomycin 1 gm, Route: IVPB No Longer Movva 09/01[facility] as IVPB, Drug Active 2011 Medical form: INJ, Center [id number], Start date: 09/01/11 19:00:00, Duration: 30 day, Stop date: 10/01/11 7:00:00 insulin aspart 6 unit, 0.06 SUB-Q No Longer Movva [facility] mL, Route: Active 2011 Medical SUB-Q, Drug Center form: SOLN, TID-Before Meals, PRN Blood Glucose Results, Start date: 09/01/11 18:23:00, Duration: 30 day, Stop date: 10/01/11 18:22:00 glucagon 1 mg, Route: IM No Longer Movva [facility] IM, Drug Active 2011 Medical form: [place] PDR/INJ, PRN, PRN Blood Glucose Results, Start date: 09/01/11 18:23:00, Duration: 30 day, Stop date: 10/01/11 18:22:00 Dextrose 50% 25 gm, 50 mL, IVP No Longer Movva [facility] Syringe Route: IVP, Active 2011 Medical Drug Form: [place] INJ, PRN, PRN Blood Glucose Results, Start date: 09/01/11 18:23:00, Duration: 30 day, Stop date: 10/01/11 18:22:00 morphine Sulfate 2 mg, 1 mL, IVP No Longer Beni [facility] Route: IVP, Active 2011 Medical Drug form: [place] INJ, Q4H, PRN Severe Pain, Start date: 09/01/11 16:14:00, Stop date: 10/01/11 16:13:00 Lactated Ringers 1,000 mL, IV No Longer [place] [facility] IV 1,000 mL Rate: 100 Active 2011 Medical ml/hr, Infuse Center over: 10 hr, Route: IV, Dosing Weight 68.182 kg, Total Volume: 1,000, Start date: 09/01/11 14:03:00, Duration: 30 day, Stop date: 10/01/11 14:02:00 morphine Sulfate 4 mg, 1 mL, IVP No Longer [facility] Route: IVP, Active 2011 Medical Drug form: Center INJ, ONCE, Start date: 09/01/11 12:13:00, Stop date: 09/01/11 12:13:00 Lactated Ringers 2,000 mL, IV No Longer [facility] (Bolus) IV 2,000 Rate: 100 Active 2011 Medic al mL ml/hr, Infuse Center over: 20 hr, Route: IV, Dosing Weight 68.18 kg, Total Volume: 2,000, Start date: 09/01/11 10:42:00, Duration: 1 doses or times, Stop date: 09/02/11 6:41:00 Insulin regular 8 unit, 0.08 SUB-Q No Longer [facility] mL, Route: Active 2011 Medical SUB-Q, Drug Center form: SOLN, ONCE, Priority: STAT, Start date: 09/01/11 10:28:00, Stop date: 09/01/11 10:28:00 Sodium Chloride 1,000 mL, IV No Longer [facility] [place] 0.9% (Bolus) IV Rate: 1,000 Active 2011 Medi [place] 1,000 mL ml/hr, Infuse Center over: 1 hr, Route: IV, Dosing Weight 68.18 kg, Total Volume: 1,000, [place] Dose, Priority: STAT, Start date: 09/01/11 9:53:00, Duration: 1 doses or times, Stop date: 09/01/11 10:52:00 morphine Sulfate 4 mg, 1 mL, IVP No Longer Sandeep [facility] Route: IVP, Active 2011 Medical Drug form: Center INJ, ONCE, Start date: 09/01/11 8:28:00, Stop date: 09/01/11 8:28:00 clindamycin 600 mg, 4 mL, IVPB No Longer [place] Route: IVPB, Active 2011 Medical Drug form: Center INJ, ONCE, Priority: STAT, Start date: 09/01/11 8:20:00, Stop date: 09/01/11 8:20:00 Sodium Chloride 1,000 mL, IV No Longer [place] 0.9% (Bolus) IV Rate: 1,000 Active 2011 Medi [place] 1000 mL ml/hr, Infuse Center over: 1 hr, Route: IV, Dosing Weight 68.182 kg, Total Volume: 1,000, [place] Dose, Priority: STAT, Start date: 09/01/11 5:41:00, Duration: 1 doses or times, Stop date: 09/01/11 6:40:00 ondansetron 4 mg, Route: IVP No Longer [place] IVP, Drug Active 2011 Medical form: INJ, Center ONCE, Priority: STAT, Start date: 09/01/11 4:06:00, Stop date: 09/01/11 4:06:00 morphine Sulfate 4 mg, Route: IVP No Longer [place] IVP, ONCE, Active 2011 Medical Priority: Center STAT, Start date: 09/01/11 4:06:00, Stop date: 09/01/11 4:06:00 Sodium Chloride 1,000 mL, IV No Longer [place] 0.9% (Bolus) IV Rate: 1,000 Active 2011 Medi [facility] 1000 mL ml/hr, Infuse Center over: 1 hr, Route: IV, Dosing Weight 68.182 kg, Total Volume: 1,000, Bolus Dose, Priority: STAT, Start date: 09/01/11 3:42:00, Duration: 1 doses or times, Stop date: 09/01/11 4:41:00 Insulin regular 8 unit, 0.08 IVP No Longer [place] mL, Route: Active 2011 Medical IVP, Drug Center form: SOLN, ONCE, Priority: STAT, Start date: 09/01/11 3:30:00, Stop date: 09/01/11 3:30:00 Sodium Chloride 1,000 mL, IV No Longer [place] 0.9% (Bolus) IV Rate: 1,000 Active 2011 [facility] tawnya 1,000 mL ml/hr, Infuse Center over: 1 hr, Route: IV, Dosing Weight 68.182 kg, Total Volume: 1,000, Bolus Dose, Priority: STAT, Start date: 09/01/11 2:29:00, Duration: 1 doses or times, Stop date: 09/01/11 3:28:00 potassium 40 mEq, 2 PO No Longer [facility] chloride tab, Route: Active 2011 Medical PO, Drug Center form: ERTAB, BID, Start date: 08/23/11 9:00:00, Duration: 2 doses or times, Stop date: 08/23/11 17:00:00 amLODipine 5 mg 5 mg, 1 tab, PO Active [facility] oral tablet PO, Daily, 30 2011 Medica l tab, 3, 3, Center Substitution Allowed, TAB lisinopril 20 mg 40 mg, 2 tab, PO Active [facility] [place] oral tablet PO, Daily, 60 2011 Medica l tab, 3, 3, Center Substitution Allowed, TAB Novolin N 100 18 Units, SUB-Q Active [facility] units/mL SUB-Q, BID, 3 2011 Medical subcutaneous vial, 3, 3, Center injection Substitution Allowed, SUSP insulin regular 5 Units, SUB-Q Active [facility] [place] human recombinant SUB-Q, TID, 2011 Md dical 100 units/mL 30 vial, 3, Center injectable 3, solution Substitution Allowed, before breakfast lunch and dinner, SOLNbefore breakfast lunch and dinner potassium 20 mEq, 100 IVPB No Longer [facility] chloride mL, Route: Active 2011 Medical IVPB, Drug Center form: INJ, Q2H, Start date: 08/23/11 8:00:00, Duration: 2 doses or times, Stop date: 08/23/11 10:00:00 calcium chloride 1 gm, Route: IVPB No Longer [facility] [place] IVPB, ONCE, Active 2011 Medical Priority: Center STAT, Start date: 08/23/11 7:28:00, Stop date: 08/23/11 7:28:00 potassium 40 mEq, IV No Longer [facility] [place] chloride Route: IV, Active 2011 Medical ONCE, Start Center date: 08/23/11 6:29:00, Stop date: 08/23/11 6:29:00 potassium 60 mEq, 3 PO No Longer [facility] [place] chloride 20 mEq tab, Route: Active 2011 [facility] [place] oral tablet, PO, Drug Center extended release form: ERTAB, ONCE, Start date: 08/23/11 6:27:00, Stop date: 08/23/11 6:27:00 magnesium sulfate 2 gm, 50 mL, IVPB No Longer [facility] Route: IVPB, Active 2011 Medical Drug form: Center INJ, ONCE, Total dose = 2 gm, Start date: 08/23/11 6:26:00, Duration: 1 doses or times, Stop date: 08/23/11 6:26:00 magnesium sulfate 2 gm, 50 mL, IVPB No Longer [facility] Route: IVPB, Active 2011 Medical Drug form: Center INJ, ONCE, Total dose = 2 gm, Start date: 08/22/11 10:26:00, Duration: 1 doses or times, Stop date: 08/22/11 10:26:00 calcium gluconate 1,000 mg, 10 IVPB No Longer [facility] mL, Route: Active 2011 Medical IVPB, ONCE, Center Start date: 08/22/11 10:25:00, Stop date: 08/22/11 10:25:00 potassium 40 mEq, 2 PO No Longer [facility] chloride 20 mEq tab, Route: Active 2011 [facility]i [place] oral tablet, PO, Drug Center extended release form: ERTAB, Daily, Start date: 08/22/11 9:00:00, Duration: 30 day, Stop date: 08/22/11 12:00:00 magnesium sulfate 2 gm, 50 mL, IVPB No Longer [facility] Route: IVPB, Active 2011 Medical Drug form: Center INJ, ONCE, Total dose = 2 gm, Start date: 08/22/11 7:26:00, Duration: 1 doses or times, Stop date: 08/22/11 7:26:00 Geodon 120 mg, 3 PO No Longer [place] [place] cap, Route: Active 2011 Medical PO, Drug Center form: CAP, Bedtime, Start date: 08/21/11 21:00:00, Duration: 30 day, Stop date: 09/19/11 21:00:00 lisinopril 10 mg, 1 tab, PO No Longer [place] Route: PO, Active 2011 Medical Drug form: Center TAB, ONCE, Start date: 08/21/11 14:06:00, Stop date: 08/21/11 14:06:00 potassium 20 mEq, 100 IVPB [place] Longer [place] chloride mL, Route: Active 2011 Medical IVPB, Drug Center form: INJ, ONCE, Start date: 08/21/11 9:12:00, Stop date: 08/21/11 9:12:00 lisinopril 40 mg, 2 tab, PO No Longer [place] Route: PO, Active 2011 Medical Drug form: Center TAB, Daily, Start date: 08/21/11 9:00:00, Stop date: 09/19/11 9:00:00 hydrALAZINE 10 mg, 0.5 IVP No Longer [place] mL, Route: Active 2011 Medical IVP, Drug Center form: INJ, Q6H, PRN Hypertension, Start date: 08/21/11 8:43:00, Duration: 30 day, Stop date: 09/20/11 8:42:00 Geodon 60 mg, 3 cap, PO No Longer [place] Route: PO, Active 2011 Medical Drug form: Center CAP, ONCE, Start date: 08/20/11 21:00:00, Stop date: 08/20/11 21:00:00 Cogentin 1 mg, 1 tab, PO No Longer [place] Route: PO, Active 2011 Medical Drug form: Center TAB, Q12H, Start date: 08/20/11 21:00:00, Duration: 30 day, Stop date: 09/19/11 9:00:00 Phenergan 6.25 mg, 0.25 IVPB No Longer [facility] mL, Route: Active 2011 Medical IVPB, Drug Center form: INJ, Q6H, PRN Nausea & Vomiting, Start date: 08/20/11 15:41:00, Stop date: 09/19/11 15:40:00 Compazine 5 mg, 1 tab, PO No Longer Ahmed [facility]a [facility] Route: PO, Active 2011 Medical Drug form: Center TAB, Q6H, PRN Nausea & Vomiting, Start date: 08/20/11 14:30:00, Duration: 30 day, Stop date: 09/19/11 14:29:00 Zofran 4 mg, 2 mL, IVP No Longer Ahmed [facility] Route: IVP, Active 2011 Medical Drug form: Center INJ, Q8H, PRN Nausea, Start date: 08/20/11 11:15:00, Duration: 30 day, Stop date: 09/19/11 11:14:00 insulin 10 unit, SUB-Q No Longer [facility] isophane-NPH Route: SUB-Q, Active 2011 Medic al ONCE, Start Center date: 08/20/11 10:00:00, Stop date: 08/20/11 10:00:00 trazodone 100 mg 200 mg, 2 PO [place] oral tablet tab, PO, 2011 Medical Bedtime, 90 Center tab, Substitution Allowed, TAB benztropine 1 mg 1 mg, 1 tab, PO Active [facility] oral tablet PO, BID, 60 2011 Medical tab, Center Substitution Allowed, TAB Geodon 60 mg oral 120 mg, 2 PO Active [place] capsule cap, PO, 2011 Medical Bedtime, 60 Center cap, Substitution Allowed, CAP insulin 10 unit, SUB-Q No Longer [facility] isophane-NPH Route: SUB-Q, Active 2011 Medic al Q12H, Start Center date: 08/20/11 9:00:00, Duration: 30 day, Stop date: 09/18/11 21:00:00 Geodon 60 mg, 3 cap, PO No Longer [place] Route: PO, Active 2011 Medical Drug form: Center CAP, BID, Start date: 08/20/11 9:00:00, Duration: 30 day, Stop date: 09/18/11 17:00:00 Effexor XR 75 mg, 1 cap, PO No Longer [place] [facility] Route: PO, Active 2011 Medical Drug form: Center ERCAP, Daily, Start date: 08/20/11 9:00:00, Duration: 30 day, Stop date: 09/18/11 9:00:00 potassium 15 mmol, 5 IV No Longer [place] [place] mL, Route: Active 2011 Medical IV, ONCE, Center Start date: 08/20/11 8:30:00, Stop date: 08/20/11 8:30:00 potassium 20 mEq, 100 IVPB No Longer [place] chloride mL, Route: Active 2011 [facility] IVPB, Drug Center form: INJ, Q2H, Total dose = 80 mEq, Start date: 08/20/11 8:00:00, Duration: 4 doses or times, Stop date: 08/20/11 14:00:00 potassium 15 mmol, IVPB No Longer [place] phosphate Route: IVPB, Active 2011 [facility] PRN, PRN Center Abnormal Lab Result, Start date: 08/20/11 6:47:00, Duration: 30 day, Stop date: 09/19/11 7:46:00 Insulin regular 6 unit, 0.06 SUB-Q No Longer [place] mL, Route: Active 2011 [facility] SUB-Q, Drug Center form: SOLN, ONCE, Start date: 08/20/11 3:38:00, Stop date: 08/20/11 3:38:00 Insulin regular 10 unit, SUB-Q No Longer [facility] [place] SUB-Q, BID, Active 2011 Medical Substitution Center Allowed insulin 10 unit, SUB-Q No Longer [place] isophane-NPH SUB-Q, BID, Active 2011 Medical Substitution Center Allowed NS 1,000 mL 1,000 mL, IV No Longer [facility] Rate: 150 Active 2011 Medical ml/hr, Infuse Center over: 6.7 hr, Route: IV, Total Volume: 1,000, Start date: 08/20/11 3:06:00, Duration: 30 day, Stop date: 09/19/11 3:05:00 insulin aspart 3 unit, 0.03 SUB-Q No Longer [place] 08/19/ [place] mL, Route: Active 2011 Medical SUB-Q, Drug Center form: SOLN, Bedtime, PRN Blood Glucose Results, Start date: 08/20/11 3:06:00, Duration: 30 day, Stop date: 09/19/11 3:05:00 enoxaparin 40 mg, 0.4 SUB-Q No Longer [place], Route: Active 2011 Medical SUB-Q, Drug Center form: INJ, Daily, Priority: Routine, Start date: 08/20/11 3:00:00, Duration: 30 day, Stop date: 09/18/11 9:00:00 insulin 18 unit, 0.18 SUB-Q No Longer [place]19/ [place] isophane-NPH mL, Route: Active 2011 Medical SUB-Q, Drug Center form: INJ, Q12H, Start date: 08/20/11 2:58:00, Stop date: 09/18/11 21:00:00 insulin aspart 2 unit, 0.02 SUB-Q No Longer [place] 08/19/ [place] mL, Route: Active 2011 Medical SUB-Q, Drug Center form: SOLN, TID-Before Meals, PRN Blood Glucose Results, Start date: 08/20/11 2:48:00, Duration: 30 day, Stop date: 09/19/11 2:47:00 glucagon 1 mg, Route: IM No Longer [place] IM, Drug Active 2011 Medical form: Center PDR/INJ, PRN, PRN Blood Glucose Results, Start date: 08/20/11 2:48:00, Duration: 30 day, Stop date: 09/19/11 3:47:00 Dextrose 50% 25 gm, 50 mL, IVP No Longer [place] 08/19/ [place] Syringe Route: IVP, Active 2011 Medical Drug Form: Center INJ, PRN, PRN Blood Glucose Results, Start date: 08/20/11 2:48:00, Duration: 30 day, Stop date: 09/19/11 3:47:00 Insulin regular 3 unit, SUB-Q No Longer [facility] Route: SUB-Q, Active 2011 Medical Bedtime, PRN Center Blood Glucose Results, Start date: 08/20/11 2:48:00, Duration: 30 day, Stop date: 09/19/11 2:47:00 Dextrose 50% 25 gm, 50 ml, IVP No Longer [facility] Syringe Route: IVP, Active 2011 Medical Drug Form: Center INJ, PRN, PRN Blood Glucose Results, Start date: 08/20/11 2:46:00, Duration: 30 day, Stop date: 09/19/11 3:45:00 ondansetron 4 mg, Route: IVP No Longer [facility] IVP, Drug Active 2011 Medical form: INJ, Center ONCE, Priority: STAT, Start date: 08/20/11 1:42:00, Stop date: 08/20/11 1:42:00 GI cocktail 30 ml, Route: PO No Longer [facility] PO, Drug Active 2011 Medical Form: SUSP, Center ONCE, STAT, Start date: 08/19/11 23:12:00, Stop date: 08/19/11 23:12:00 ondansetron 4 mg, Route: PO No Longer [facility] PO, Drug Active 2011 Medical form: TABDIS, Center ONCE, Priority: STAT, Start date: 08/19/11 23:10:00, Stop date: 08/19/11 23:10:00 Lactated Ringers 1,000 mL, IV No Longer [facility] (Bolus) IV 1000 Rate: 1,000 Active 2011 Medi [place] mL ml/hr, Infuse Center over: 1 hr, Route: IV, Total Volume: 1,000, Bolus Dose, Priority: STAT, Start date: 08/19/11 23:10:00, Duration: 1 doses or times, Stop date: 08/20/11 0:09:00 Insulin regular 7 unit, 0.07 SUB-Q No Longer [facility] 08/19 [facility] mL, Route: Active 2011 Medical SUB-Q, Drug Center form: SOLN, ONCE, Priority: STAT, Start date: 08/19/11 22:15:00, Stop date: 08/19/11 22:15:00 Geodon 60 mg oral 60 mg, 1 cap, PO No Longer [facility] capsule PO, BID, 180 Active 2011 Medical cap, Center Substitution Allowed, CAP trazodone 300 mg 300 mg, 1 PO No Longer [place] oral tablet tab, PO, Active 2011 Medical Bedtime, 15 Center tab, Substitution Allowed, TAB Effexor XR 75 mg 75 mg, 1 cap, PO Active [facility] oral capsule, PO, Daily, 2011 [facility] extended release cap, Center Substitution Allowed Lactated Ringers 1,000 mL, IV No Longer [place] [place] IV 1,000 mL Rate: 250 Active 2011 Medical ml/hr, Infuse Center over: 4 hr, Route: IV, Total Volume: 1,000, Priority: STAT, Start date: 08/19/11 17:03:00, Duration: 30 day, Stop date: 09/18/11 17:02:00 Sodium Chloride 100 mL, Rate: IV No Longer [facility] 0.9% (titrate) Titrate, Active 2011 Medical 100 mL + Insulin Route: IV, Cent er (regular) Titrate Total Volume: IV additive 100 100 ml, unit Duration: 30 day, Stop date: 09/18/11 16:16:00, Replace Every: 24 hr GI cocktail 40 mL, Route: PO No Longer [place] PO, Drug Active 2011 Medical Form: SUSP, Center ONCE, STAT, Start date: 08/19/11 16:04:00, Stop date: 08/19/11 16:04:00 Protonix 40 mg, Route: IVP [place] Longer [place] IVP, Drug Active 2011 Medical form: INJ, Center ONCE, Start date: 08/19/11 16:04:00, Stop date: 08/19/11 16:04:00 ondansetron 8 mg, Route: IVP No Longer [place] IVP, Drug Active 2011 Medical form: INJ, Center ONCE, Priority: STAT, Start date: 08/19/11 15:57:00, Stop date: 08/19/11 15:57:00 morphine Sulfate 4 mg, Route: IVP No Longer P[facility] IVP, ONCE, Active 2011 Medical Priority: Center STAT, Start date: 08/19/11 15:57:00, Stop date: 08/19/11 15:57:00 Reglan 10 mg, Route: IV No Longer [facility] IV, ONCE, Active 2011 Medical Start date: Center 08/19/11 15:57:00, Stop date: 08/19/11 15:57:00 Lactated Ringers 1,000 mL, IV No Longer Pooja [facility] (Bolus) IV 1000 Rate: 1,000 Active 2011 [facility] tawnya mL ml/hr, Infuse Center over: 1 hr, Route: IV, Total Volume: 1,000, [place] Dose, Priority: STAT, Start date: 08/19/11 15:12:00, Duration: 1 doses or times, Stop date: 08/19/11 16:11:00 Allergies, Adverse Reactions, Alerts Substance Category Reaction Severity Reaction Status Date Comments S ource type Reported codeine Assertion Drug Active [facility] as [facility] penicillins Assertion Drug Active [facility] Prolex DM Assertion Drug Active [facility] Ambien Assertion Drug Active [facility] lisinopril Assertion angioedema Drug Active [facility] Immunizations No Data Provided for This Section Results Order Name Results Value Reference Date Interpretation Comments Alycia rce Range ELECTROLYT AGAP 14.6 10.0 - 02/09 [facility] ES 20.0 /2017 Medical Center ELECTROLYT eGFR 33 02/09 Result [facility] Comment: The Medical eGFR is Center [...] Calcium Lvl 8.3 8.5 - 10.5 07/30 [facility] ELECTROLYT Glucose Lvl 81 70 - 99 07/30 [facility] ELECTROLYT Creatinine 1.95 0.50 - 07/30 [facility] Lvl 1.40 [facility] ELECTROLYT BUN 55 7 - 22 07/30 [facility] ELECTROLYT CO2 19 24 - 32 07/30 [facility]2016 [facility] ELECTROLYT Chloride Lvl 110 95 - 109 07/30 [facility] ELECTROLYT Sodium Lvl 139 135 - 145 07/[address] ELECTROLYT Potassium 4.6 3.5 - 5.1 07/30 [facility] Lvl [facility] HEMATOLOGY Lymphocytes 30.4 20.0 - 07/30 [facility] 40.0 [facility] HEMATOLOGY Eosinophils 4.5 0.0 - 4.0 07/30 [facility] HEMATOLOGY Monocytes 13.7 2.0 - 12.0 07/30 [facility] [address] [place] [address] HEMATOLOGY Segs-Bands # 2.6 1.5 - 8.1 07/30 [facility] HEMATOLOGY Basophils 0.7 0.0 - 1.0 07/30 [facility] [address] [place] [address] HEMATOLOGY Monocytes # 0.7 0.0 - 0.8 07/30 [facility] HEMATOLOGY Lymphocytes 1.6 1.0 - 5.5 07/30 [facility] # [facility] HEMATOLOGY Eosinophils 0.2 0.0 - 0.5 07/30 [facility] # [facility] HEMATOLOGY Segs 50.7 45.0 - 07/30 [place] 75.0 [facility] HEMATOLOGY PB Smear Peripheral 07/30 [facility] blood /2016 [facility] smear Center shows hypochromi c normocytic anemia with anisopoiki locytsosis , no increase in schistocyt es, slight polychroma antonia, frequent eccinocyte s, occasional eliptocyte s, and moderate thrombocyt openia. Impression : (1) No evidence of microangio pathic hemolysis (2) RBC morphology is suggestive of anemia of chronic disease or iron deficiency anemia, and renal disease. CPT: 39408 HEMATOLOGY Hct 28.1 36.0 - 07/30 [place] 48.0 [facility] HEMATOLOGY RBC 3.39 4.20 - 07/30 [place] 5.40 /2016 [facility] HEMATOLOGY Hgb 8.9 12.0 - 07/30 [place] 16.0 /2016 [facility] HEMATOLOGY WBC 5.1 3.7 - 10.4 07/30 [facility] HEMATOLOGY MPV 11.3 7.4 - 10.4 07/30 [facility] HEMATOLOGY Platelet 118 133 - 450 07/30 [facility] HEMATOLOGY MCHC 31.8 32.0 - 02 [place] 36.0 [facility] HEMATOLOGY RDW 18.0 11.5 - 07/30 14.5 [facility] HEMATOLOGY MCV 83.0 80.0 - 07/30 98.0 [facility] HEMATOLOGY MCH 26.4 27.0 - 07/30 [place] 31.0 [facility] IMMUNOLOGY C3 137 88 - 201 07/30 [facility] IMMUNOLOGY HIV. Negative Negative [facility] (07/30/16 5:32 AM) [facility] HEMATOLOGY PB Smear Peripheral 07/29 [facility] blood [facility] [place] smear Center shows hypochromi c normocytic anemia with anisopoiki locytsosis , no increase in schistocyt es, moderate polychroma antonia, frequent eccinocyte s, occasional eliptocyte s, and moderate thrombocyt openia. Impression : (1) No evidence of microangio pathic hemolysis (2) RBC morphology is suggestive of anemia of chronic disease or iron deficiency anemia, and renal disease. CPT: 25746 IMMUNOLOGY HIV. Negative Negative 07/29 [facility] *NA* [facility] (07/29/16 5:05 AM) [facility] IMMUNOLOGY C3 92 88 - 201 07/29 [facility] CHEM PANEL eGFR 25 07/28 [facility] Comment: The [facility] [place] eGFR is Center calculated using the CKD-EPI [...] PANEL BUN 55 7 - 22 07/28 [facility] CHEM PANEL CO2 23 24 - 32 07/28 [facility]2016 [facility] CHEM PANEL Chloride Lvl 109 95 - 109 07/28 [facility] CHEM PANEL Glucose Lvl 101 70 - 99 07/28 2016 [facility] CHEM PANEL Potassium 4.0 3.5 - 5.1 07/28 [facility] CHEM PANEL Sodium Lvl 141 135 - 145 07/28 [facility] CHEM PANEL AGAP 13.0 10.0 - 02 [place] 20.0 [facility] CHEM PANEL Calcium Lvl 7.7 8.5 - 10.5 07/28 [facility] CHEM PANEL Creatinine 2.49 0.50 - 07/28 [facility] Lvl 1.40 /2016 [facility] HEMATOLOGY PT 14.8 12.0 - 02 [place] 14.7 [facility] HEMATOLOGY PTT 40.8 22.9 - 02 [place] 35.8 /2016 [facility] HEMATOLOGY INR 1.14 0.85 - 02 [place] 1.17 [facility] IMMUNOLOGY C3 94 88 - 201 02 [facility] HEMATOLOGY Lymphocytes 1.7 1.0 - 5.5 07/28 [place] # /2016 [facility] HEMATOLOGY Segs-Bands # 2.7 1.5 - 8.1 07/28 [facility] HEMATOLOGY Eosinophils 0.1 0.0 - 0.5 07/28 [place] # /2016 [facility] HEMATOLOGY Monocytes # 0.7 0.0 - 0.8 07/28 [facility] HEMATOLOGY Segs 51.3 45.0 - 02 [place] 75.0 /2016 [facility] HEMATOLOGY Lymphocytes 31.6 20.0 - 02 [place] 40.0 /2016 [facility] HEMATOLOGY Monocytes 14.1 2.0 - 12.0 07/28 [facility] HEMATOLOGY Eosinophils 2.6 0.0 - 4.0 07/28 a s /2016 [facility] HEMATOLOGY Basophils 0.4 0.0 - 1.0 07/28 [facility] HEMATOLOGY PB Smear Peripheral 07/28 [facility] Path blood /2016 Medical smear Center shows hypochromi c normocytic anemia with anisopoiki locytsosis , no increase in schistocyt es, slight polychroma antonia, a few estella cells, moderate thrombocyt openia. Impression : (1) no evidence of microangio pathic hemolysis, (2) RBC morphology is suggestive of anemia of chronic disease or iron deficiency anemia, and renal disease. CPT: 33395 HEMATOLOGY Hct 29.3 36.0 - 07/28 [place] 48.0 [facility] HEMATOLOGY Hgb 9.2 12.0 - 07/28 16.0 [facility] HEMATOLOGY RBC 3.54 4.20 - 07/28 [place] 5.40 /2016 [facility] HEMATOLOGY WBC 5.3 3.7 - 10.4 07/28 [facility] HEMATOLOGY Platelet 87 133 - 450 07/28 [facility] HEMATOLOGY MCHC 31.4 32.0 - 02 36.0 /2016 [facility] HEMATOLOGY RDW 17.9 11.5 - 07/28 14.5 [facility] HEMATOLOGY MPV 10.9 7.4 - 10.4 07/28 [facility] HEMATOLOGY MCH 26.0 27.0 - 02 31.0 [facility] HEMATOLOGY MCV 82.8 80.0 - 07/28 [facility] 98.0 [facility] IMMUNOLOGY HIV. Negative Negative 07/28 [facility] *NA* /2016 Medical (07/28/16 4:35 AM) Center CARDIAC Total CK 190 12 - 191 07/27 [facility] CHEM PANEL Calcium Lvl 7.8 8.5 - 10.5 07/27 [facility] CHEM PANEL CO2 21 24 - 32 07/27 [facility] CHEM PANEL Sodium Lvl 140 135 - 145 07/27 [facility] CHEM PANEL Potassium 3.8 3.5 - 5.1 07/27 [facility] CHEM PANEL Chloride Lvl 106 95 - 109 07/27 [facility] CHEM PANEL Bili Total 0.4 0.2 - 1.3 07/27 [facility] CHEM PANEL Alk Phos 74 39 - 136 07/27 [facility] CHEM PANEL eGFR 19 07/27 [facility] Comment: [facility] [place] eGFR is Center calculated using the CKD-EPI [...] PANEL Total 5.2 6.4 - 8.4 07/27 [facility] CHEM PANEL ALT 822 0 - 65 07/27 [facility] CHEM PANEL AST 205 0 - 37 07/27 [facility] CHEM PANEL Albumin Lvl 1.8 3.5 - 5.0 07/27 [facility] CHEM PANEL BUN 54 7 - 22 07/27 [facility] CHEM PANEL Glucose Lvl 143 70 - 99 07/27 [facility] CHEM PANEL Creatinine 3.11 0.50 - 02 [facility] 1.40 [facility] CHEM PANEL B/C Ratio 17 6 - 25 07/27 [facility] CHEM PANEL AGAP 16.8 10.0 - 02 [place] 20.0 [facility] CHEM PANEL Globulin 3.4 2.7 - 4.2 07/[address] [place] [address] CHEM PANEL A/G Ratio 0.5 0.7 - 1.6 02/ [facility] CHEM PANEL Magnesium 2.0 1.8 - 2.4 02 [facility] Lvl [facility] CHEM PANEL Phosphorus 3.7 2.5 - 4.[address] [place] [address] HEMATOLOGY RDW 17.7 11.5 - 02 [place] 14.5 /2016 [facility] HEMATOLOGY MCHC 32.9 32.0 - 02/ [place] 36.0 [facility] HEMATOLOGY Hct 25.4 36.0 - 02/ [place] 48.0 [facility] HEMATOLOGY MCH 26.4 27.0 - 02 [place] 31.0 [facility] HEMATOLOGY MCV 80.3 80.0 - 02 [place] 98.0 [facility] HEMATOLOGY MPV 11.4 7.4 - 10.4 02 [facility] [address] [place] [address] HEMATOLOGY Platelet 74 133 - 450 02 [facility] HEMATOLOGY RBC 3.16 4.20 - 02 [place] 5.40 /2016 [facility] HEMATOLOGY WBC 5.3 3.7 - 10.4 02 [facility] HEMATOLOGY Hgb 8.4 12.0 - 02 [place] 16.0 [facility] HEMATOLOGY Monocytes 14.5 2.0 - 12.[address] [place] [address] HEMATOLOGY Lymphocytes 29.8 20.0 - 02 [place] 40.0 [facility] HEMATOLOGY Eosinophils 0.1 0.0 - 0.5 02 [place] # [facility] HEMATOLOGY Monocytes # 0.8 0.0 - 0.8 02 [place] [facility] HEMATOLOGY Segs-Bands # 2.9 1.5 - 8.1 02 as [facility] HEMATOLOGY Lymphocytes 1.6 1.0 - 5.5 [place] # /2016 [facility] HEMATOLOGY Basophils 0.4 0.0 - 1.0 02 [facility] [address] [place] [address] HEMATOLOGY Eosinophils 1.2 0.0 - 4.0 02/ [place] [facility] HEMATOLOGY Segs 54.1 45.0 - 02/ [place] 75.0 [facility] SPECIAL Hgb A1C 8.9 <=5.6 % 07/27 [facility] CHEMISTRY [facility] CARDIAC Total CK 344 12 - 191 07/26 [facility] ENZYMES [facility] IMMUNOLOGY IVETTE Positive Negative 07/26 *ABN* Medical (07/26/16 11:40 AM) Center IMMUNOLOGY VP LAB Ab <0.2 <=0.9 AI 07/26 [facility] IMMUNOLOGY Sm Ab <0.2 <=0.9 AI 07/26 [facility] IMMUNOLOGY IVETTE Interp Pattern 07/26 appears [facility] IMMUNOLOGY SS-B ([place]) Ab <0.2 <=0.9 [place] 07/[place] [facility] IMMUNOLOGY SS-A (Ro) Ab <0.2 <=0.9 AI 07/26 [facility] IMMUNOLOGY DNA Ab (DS) Negative Negative 07/26 [facility] (07/26/16 11:40 AM) Medica l Center IMMUNOLOGY IVETTE Titer 1:40 Negative 07/26 *ABN* Medical (07/26/16 11:40 AM) Center URINE CHEM U Sodium 21 07/26 [facility] HEMATOLOGY INR 1.11 0.85 - 07/26 [place] 1.17 [facility] HEMATOLOGY PT 14.5 12.0 - 07/26 [facility] 14.7 [facility] IMMUNOLOGY Hep A IgM Negative Negative 07/26 [place] *NA* [facility] (07/26/16 8:00 AM) Center IMMUNOLOGY Hep B Core Negative Negative 07/26 [facility] IgM *NA* Medical (07/26/16 8:00 AM) Center IMMUNOLOGY Hep C Ab Negative 07/26 [place] *NA* [facility] (07/26/16 8:00 AM) Center IMMUNOLOGY Hep Bs Ag Negative Negative 07/26 *NA* [facility] (07/26/16 8:00 AM) Center CHEM PANEL B/C Ratio 17 6 - 25 07/26 [facility] CHEM PANEL ALT 1232 0 - 65 07/26 [facility] CHEM PANEL A/G Ratio 0.5 0.7 - 1.6 07/26 [facility] CHEM PANEL Bili Total 0.3 0.2 - 1.3 07/26 [facility] CHEM PANEL Alk Phos 79 39 - 136 07/[address] CHEM PANEL AST 586 0 - 37 07/26 [facility]2016 [facility] CHEM PANEL Total 5.5 6.4 - 8.4 07/26 [facility] Protein [facility] CHEM PANEL Globulin 3.7 2.7 - 4.2 07/[address] CHEM PANEL Albumin Lvl 1.8 3.5 - 5.0 07/26 [place] [facility] CHEM PANEL Magnesium 2.1 1.8 - 2.4 07/26 [facility] HEMATOLOGY Acanthocyte Slight 07/[address] HEMATOLOGY Rouleaux Present None Seen 07/26 [facility]* [facility] (07/26/16 4:42 AM) [facility] HEMATOLOGY Anisocyte 1+ None Seen 07/26 [facility]* [facility] (07/26/16 4:42 AM) [facility] HEMATOLOGY Basophils # 0.1 0.0 - 0.2 07/26 [facility] HEMATOLOGY Large Plt Moderate None [facility] (07/26/16 4:42 AM) [facility] IMMUNOLOGY C4 42 16 - 47 07/26 [facility] URINE AND UA Sq Epi None Seen 07/[address] URINE AND UA Waxy Cast 1 <=0 /LPF 07/[address] URINE AND UA Hyal Cast 4 0 - 2 07/[address] URINE AND UA Bacteria Occasional None [place]en [place] /HPF /HPF /2016 [facility] URINE AND UA Mucus Few /LPF None Seen 07/25 [place] STOOL /LPF /[address] [place] [address] URINE AND UA Amorph Occasional None Seen [place] STO[place] /HPF /HPF /[address] [place] [address] URINE AND UA Leuk Est Negative Negative 07/25 [facility] STOOL (07/25/16 10:34 AM) [facility] URINE AND UA Nitrite Negative Negative 07/25 [facility] (07/25/16 10:34 AM) /2016 [facility] URINE AND UA RBC 2 0 - 2 07/25 [facility] /[address] [place] [address] URINE AND UA WBC 6 0 - 5 07/[address] URINE AND UA 2.0 0.1 - 1.0 07/25 [facility] Urobilinogen /2016 [facility] URINE AND UA Ketones Negative Negative 07/25 [facility] STOOL mg/dL mg/dL [facility] URINE AND UA Glucose 70 mg/dL Negative 07/25 [facility] mg/dL [facility] URINE AND UA Blood Negative Negative 07/25 [facility] (07/25/16 10:34 AM) /2016 [facility] URINE AND UA Bili Negative Negative 07/25 [facility] STOOL *NA* [facility] (07/25/16 10:34 AM) [facility] URINE AND UA Protein >=300 Negative 07/25 [facility] mg/dL mg/dL [facility] URINE AND UA Spec Grav 1.012 <=1.030 07/25 [facility] URINE AND UA pH 5.5 5.0 - 8.0 07/25 [facility] URINE AND UA Turbidity Slight Clear 07/25 [facility] *ABN* [facility] (07/25/16 10:34 AM) [facility] URINE AND UA Color Dark Yellow Yellow 07/25 [facility] *NA* /2016 [facility] (07/25/16 10:34 AM) [facility] URINE AND UA Gran Cast 9 07/25 [facility] URINE CHEM U Sodium 30 07/25 [facility] [address] [place] [address] URINE CHEM U Prot/Creat 3.1 07/25 [facility] [address] [place] [address] URINE CHEM U Protein 420.9 07/25 [facility] [address] [place] [address] URINE CHEM U Creatinine 136.00 07/25 [facility] [address] [place] [address] CHEM PANEL Magnesium 2.0 1.8 - 2.4 07/25 [place] Lvl [facility] CHEM PANEL Phosphorus 5.2 2.5 - 4.5 07/[address] [place] [address] CARDIAC Troponin-I 0.28 0.00 - 07/24 [facility] ENZYMES 0.40 /2016 [facility] CARDIAC Total CK 2616 12 - 191 07/24 [facility] ENZYMES /2016 [facility] CARDIAC Troponin-T 0.144 0.000 - 07/24 Result [facility] ENZYMES 0.100 /2016 Comment: [facility] Result(s) called to Jennifer Reardon at 07/24/2016 13:00 byMIA. Read back OK. CARDIAC CK MB Index 0.2 0.0 - 2.5 07/24 [facility] [place] ENZYMES /2016 [facility] CARDIAC CK MB 6.3 0.5 - 3.6 07/24 [place] ENZYMES /2016 [facility] CARDIAC Troponin-I 0.38 0.00 - 07/24 [place] ENZYMES 0.40 /2017 [facility] CARDIAC Troponin-T 0.173 0.000 - 07/24 Result [place] ENZYMES 0.100 /2016 Comment: [facility] Critical Center Result(s) called to Nora Salcedo at 07/24/2016 07:48 byMIA. Read back OK. CARDIAC CK MB Index 0.2 0.0 - 2.5 07/24 [place] ENZYMES /2017 [facility] CARDIAC CK MB 5.6 0.5 - 3.6 07/24 [place] ENZYMES [facility] CHEM PANEL Phosphorus 5.5 2.5 - 4.5 07/24 [facility] CARDIAC BNP 701 <=100 07/24 [place] ENZYMES pg/mL /2016 [facility] CARDIAC Troponin-I 0.57 0.00 - 07/24 Result [place] ENZYMES 0.40 Comment: Medical Critical Center Result(s) called to Chriss Morales at 07/23/2016 23:25 by AC. Read back OK. CARDIAC BNP 526 <=100 06/15 [place] ENZYMES pg/mL [facility] CHEM PANEL Magnesium 2.1 1.8 - 2.4 06/15 Lv [facility] CHEM PANEL Glucose Lvl 117 70 - 99 06/15 [facility] CHEM PANEL BUN 41 7 - 22 06/15 [facility] CHEM PANEL Creatinine 2.00 0.50 - 06/15 [place] Lvl 1.40 [facility] CHEM PANEL Calcium Lvl 9.0 8.5 - 10.5 06/15 Bal[place] as [facility] CHEM PANEL Chloride Lvl 102 95 - 109 06/15 [place] [facility] CHEM PANEL CO2 33 24 - 32 06/15 [facility] CHEM PANEL Sodium Lvl 144 135 - 145 06/15 [facility] CHEM PANEL Potassium 4.0 3.5 - 5.1 06/15 [place] L[place] [facility] CHEM PANEL eGFR 32 06/15 Result Comment: [...] the estimated BMI. CHEM PANEL AGAP 13.0 10.0 - 06/15 [place] 20.0 [facility] CHEM PANEL Phosphorus 4.6 2.5 - 4.5 06/15 [facility] HEMATOLOGY RBC 3.68 4.20 - 06/15 [place] 5.40 [facility] HEMATOLOGY Hgb 9.9 12.0 - 06/15 [place] 16.0 [facility] HEMATOLOGY MCH 26.8 27.0 - 06/15 [place] 31.0 [facility] HEMATOLOGY MCHC 34.2 32.0 - 06/15 [place] 36.0 [facility] HEMATOLOGY MCV 78.3 80.0 - 06/15 [place] 98.0 [facility] HEMATOLOGY Hct 28.8 36.0 - 06/15 [place] 48.0 [facility] HEMATOLOGY Platelet 191 133 - 450 06/15 [facility] HEMATOLOGY MPV 9.5 7.4 - 10.4 06/15 [facility] HEMATOLOGY RDW 15.3 11.5 - 06/15 [place] 14.5 [facility] HEMATOLOGY WBC 5.6 3.7 - 10.4 06/15 [facility] HEMATOLOGY Eosinophils 0.5 0.0 - 0.5 06/[place] # /2015 [facility] HEMATOLOGY Microcyte 1+ None Seen 06/15 [facility] *ABN* /2015 Medical (06/15/16 4:22 AM) Cente r HEMATOLOGY Basophils # 0.1 0.0 - 0.2 06/[place] /2015 [facility] HEMATOLOGY Lymphocytes 33.5 20.0 - 06/15 [place] 40.0 [facility] HEMATOLOGY Segs 47.6 45.0 - 06/15 [place] 75.0 [facility] HEMATOLOGY Monocytes 8.4 2.0 - 12.0 06/15 [facility] HEMATOLOGY Eosinophils 9.4 0.0 - 4.0 06/15 [facility] HEMATOLOGY Segs-Bands # 2.6 1.5 - 8.1 06/15 [facility] HEMATOLOGY Lymphocytes 1.9 1.0 - 5.5 06/15 a s [facility] HEMATOLOGY Basophils 1.1 0.0 - 1.0 06/15 [facility] HEMATOLOGY Monocytes # 0.5 0.0 - 0.8 06/15 [facility] CHEM PANEL Phosphorus 4.8 2.5 - 4.5 06/14 [facility] CHEM PANEL Magnesium 2.0 1.8 - 2.4 06/14 [facility] CHEM PANEL eGFR 32 06/14 [facility] Comment: The Medical eGFR is Center [...] Chloride Lvl 101 95 - 109 06/14 [facility] CHEM PANEL Potassium 4.4 3.5 - 5.1 06/14 [facility] CHEM PANEL BUN 37 7 - 22 06/14 [facility] CHEM PANEL Glucose Lvl 119 70 - 99 06/14 [facility] CHEM PANEL Creatinine 2.00 0.50 - 06/14 [place] L[place] 1.40 [facility] CHEM PANEL Sodium Lvl 142 135 - 145 06/14 [facility] CHEM PANEL Calcium Lvl 8.7 8.5 - 10.5 06/14 [facility] CHEM PANEL CO2 32 24 - 32 06/14 [facility] CHEM PANEL AGAP 13.4 10.0 - 06/14 [place] 20.0 [facility] HEMATOLOGY Eosinophils 10.3 0.0 - 4.0 06/14 [place] [facility] HEMATOLOGY Basophils # 0.1 0.0 - 0.2 06/14 a [facility] HEMATOLOGY Eosinophils 0.5 0.0 - 0.5 06/14 [place] # [facility] HEMATOLOGY Monocytes # 0.5 0.0 - 0.8 06/14 a [facility] HEMATOLOGY Segs-Bands # 2.1 1.5 - 8.1 06/14 [facility] HEMATOLOGY Basophils 1.2 0.0 - 1.0 06/14 [facility] HEMATOLOGY Lymphocytes 1.9 1.0 - 5.5 06/14 [place] # [facility] HEMATOLOGY Segs 42.5 45.0 - 06/14 [place] 75.0 [facility] HEMATOLOGY Lymphocytes 37.0 20.0 - 06/14 [place] 40.0 [facility] HEMATOLOGY Monocytes 9.0 2.0 - 12.0 06/14 [facility] HEMATOLOGY MPV 9.8 7.4 - 10.4 06/14 [facility] HEMATOLOGY WBC 5.0 3.7 - 10.4 06/14 [facility] HEMATOLOGY RBC 3.57 4.20 - 06/14 [place] 5.40 [facility] HEMATOLOGY Hgb 9.4 12.0 - 06/14 [place] 16.0 [facility] HEMATOLOGY Hct 28.5 36.0 - 06/14 [place] 48.0 [facility] HEMATOLOGY Platelet 183 133 - 450 06/14 [facility] HEMATOLOGY MCV 79.9 80.0 - 06/14 [place] 98.0 [facility] HEMATOLOGY MCH 26.3 27.0 - 06/14 [place] 31.0 /2016 [facility] HEMATOLOGY MCHC 33.0 32.0 - 06/14 [place] 36.0 /2016 [facility] HEMATOLOGY RDW 15.9 11.5 - 06/14 [place] 14.5 [facility] URINE CHEM U Prot/Creat 6.9 06/13 /2015 [facility] URINE CHEM U Creatinine 19.30 06/13 /2015 [facility] URINE CHEM U Protein 133.1 06/13 /2015 [facility] HEMATOLOGY MPV 9.7 7.4 - 10.4 06/13 /2015 [facility] HEMATOLOGY Platelet 184 133 - 450 06/13 /2015 [facility] HEMATOLOGY RDW 15.9 11.5 - 06/13 [place] 14. [facility] HEMATOLOGY MCV 79.3 80.0 - 06/13 [place] 98.0 /2015 [facility] HEMATOLOGY MCHC 33.0 32.0 - 06/13 [place] 36.0 /2015 [facility] HEMATOLOGY MCH 26.2 27.0 - 06/13 [place] 31.0 /2016 [facility] HEMATOLOGY Hct 29.4 36.0 - 06/13 [place] 48.0 /2016 [facility] HEMATOLOGY Hgb 9.7 12.0 - 06/13 [place] 16.0 /2016 [facility] HEMATOLOGY RBC 3.70 4.20 - 06/13 [place] 5.40 /2016 [facility] HEMATOLOGY WBC 5.7 3.7 - 10.4 06/13 [facility] HEMATOLOGY Basophils # 0.1 0.0 - 0.2 06/13 [place] /2015 [facility] HEMATOLOGY Lymphocytes 2.2 1.0 - 5.5 06/13 [place] # /2016 [facility] HEMATOLOGY Eosinophils 0.5 0.0 - 0.5 06/13 [place] # /2015 [facility] HEMATOLOGY Monocytes # 0.5 0.0 - 0.8 06/13 [place] /2015 [facility] HEMATOLOGY Basophils 1.1 0.0 - 1.0 06/13 [facility] HEMATOLOGY Segs-Bands # 2.3 1.5 - 8.1 06/13 Baljinder as /2015 [facility] HEMATOLOGY Eosinophils 9.5 0.0 - 4.0 06/13 [place] /2016 [facility] HEMATOLOGY Monocytes 9.0 2.0 - 12.0 06/13 [facility] HEMATOLOGY Lymphocytes 38.9 20.0 - 06/13 [place] 40.0 /2015 [facility] HEMATOLOGY Segs 41.5 45.0 - 12 [facility] 75.0 [facility] CHEM PANEL Magnesium 1.7 1.8 - 2.4 06/13 [facility] CHEM PANEL Phosphorus 4.2 2.5 - 4.5 06/13 [facility] ELECTROLYT AGAP 14.3 10.0 - 06/13 [facility] ES 20.0 [facility] ELECTROLYT eGFR 41 06/13 Result [facility] Comment: The [facility] eGFR is Center calculated using the CKD-EPI [...] ELECTROLYT Chloride Lvl 103 95 - 109 06/13 [place] [facility] ELECTROLYT Calcium Lvl 8.5 8.5 - 10.5 06/13 Baljinder as [facility] ELECTROLYT CO2 32 24 - 32 06/13 [facility] ELECTROLYT Glucose Lvl 173 70 - 99 06/13 [facility] ELECTROLYT BUN 37 7 - 22 06/13 [facility] ELECTROLYT Creatinine 1.63 0.50 - 06/13 [facility] Lvl 1.40 [facility] ELECTROLYT Potassium 4.3 3.5 - 5.1 06/13 [facility] Lvl [facility] ELECTROLYT Sodium Lvl 145 135 - 145 06/13 [facility] CHEM PANEL Ammonia 48.0 <=45.0 06/11 [facility] uMol/L [facility] IMMUNOLOGY IVETTE Interp Pattern 06/11 [place] [facility] IMMUNOLOGY IVETTE Titer 1:40 Negative 06/11 [place] *ABN* /2015 Medical (06/11/16 8:56 AM) Cente r IMMUNOLOGY Hep Bs Ag Negative Negative 06/11 [place] *NA* /2015 Medical (06/11/16 8:56 AM) Cente r IMMUNOLOGY Hep C Ab Negative 06/11 [place] *NA* /2015 Medical (06/11/16 8:56 AM) Cente r IMMUNOLOGY Hep B Core Negative Negative 06/11 [place] IgM *NA* /2015 Medical (06/11/16 8:56 AM) Cente r IMMUNOLOGY Hep A IgM Negative Negative 06/11 [place] *NA* /2015 Medical (06/11/16 8:56 AM) Cente r IMMUNOLOGY HIV Ag/Ab Negative Negative 06/11 [facility] 4th Gen *NA* Medical (06/11/16 8:56 AM) Cente r IMMUNOLOGY IVETTE Positive Negative 06/11 [place] *ABN* Medical (06/11/16 8:56 AM) Cente r CHEM PANEL Bili Total 0.1 0.2 - 1.3 06/11 [facility] CHEM PANEL Total 5.2 6.4 - 8.4 06/11 [facility] CHEM PANEL Albumin Lvl 1.6 3.5 - 5.0 06/11 [place] [facility] CHEM PANEL B/C Ratio 20 6 - 25 06/11 [facility] CHEM PANEL Globulin 3.6 2.7 - 4.2 06/11 [facility] CHEM PANEL A/G Ratio 0.4 0.7 - 1.6 06/11 [facility] CHEM PANEL Alk Phos 74 39 - 136 06/11 [facility] CHEM PANEL ALT 14 0 - 65 06/11 [facility] CHEM PANEL AST 13 0 - 37 06/11 [facility] HEMATOLOGY INR 1.06 0.85 - 06/11 [place] 1.17 /2015 [facility] HEMATOLOGY PT 14.0 12.0 - 06/11 [place] 14.7 /2016 [facility] HEMATOLOGY PTT 36.4 22.9 - 06/11 [place] 35.8 /2016 [facility] SPECIAL Hgb A1C 10.5 <=5.6 % 06/11 [place] CHEMISTRY /2015 [facility] CARDIAC CK MB Index 1.8 0.0 - 2.5 06/11 [place] ENZYMES /2015 [facility] CARDIAC CK MB 2.9 0.5 - 3.6 06/11 [place] ENZYMES [facility] CARDIAC Troponin-T 0.061 0.000 - 06/11 [place] ENZYMES 0.100 /2015 [facility] CARDIAC Total CK 159 12 - 191 06/11 [facility] ENZYMES [facility] CARDIAC Troponin-I <0.02 0.00 - 06/11 [place] ENZYMES 0.40 [facility] CHEM PANEL Bili Total 0.2 0.2 - 1.3 06/11 [facility] CHEM PANEL Bili Direct 0.1 0.0 - 0.3 06/11 [place] [facility] CHEM PANEL Bili 0.1 0.0 - 1.0 06/11 Indirect [facility] CHEM PANEL Total 5.7 6.4 - 8.4 06/11 Protein [facility] CHEM PANEL A/G Ratio 0.5 0.7 - 1.6 06/11 [facility] CHEM PANEL Albumin Lvl 1.8 3.5 - 5.0 06/11 [place] [facility] CHEM PANEL Globulin 3.9 2.7 - 4.2 06/11 [facility] CHEM PANEL Alk Phos 99 39 - 136 06/11 [facility] CHEM PANEL AST 21 0 - 37 06/11 [facility] CHEM PANEL ALT 17 0 - 65 06/11 [facility] DRUG UDS Note See Note 06/11 [place] SCREEN *NA* Medical (06/10/16 8:08 PM) Cente r DRUG U Propoxyph Negative Negative 06/11 [place] SCREEN Scr *NA* Medical (06/10/16 8:08 PM) Cente r DRUG U Opiate Scr Negative Negative 06/11 [place] SCREEN Medical (06/10/16 8:08 PM) Cente r DRUG U Methadone Negative Negative 06/11 [place] SCREEN Scr *NA* Medical (06/10/16 8:08 PM) Cente r DRUG U Phencyc Negative Negative 06/11 [facility] [place] SCREEN Scr Medical (06/10/16 8:08 PM) Cente r DRUG U Cannab Scr Negative Negative 06/11 [place] SCREEN *NA* Medical (06/10/16 8:08 PM) Cente r DRUG U Amph Scr Negative Negative 06/11 [place] SCREEN *NA* Medical (06/10/16 8:08 PM) Cente r DRUG U Kelly Scr Negative Negative 06/11 [place] SCREEN *NA* Medical (06/10/16 8:08 PM) Cente r DRUG U Benzodia Negative Negative 06/11 [facility] SCREEN Scr *NA* Medical (06/10/16 8:08 PM) Cente r DRUG U Cocaine Negative Negative 06/11 [facility] SCREEN Scr *NA* Medical (06/10/16 8:08 PM) Cente r LIPIDS LDL 75 <=99 mg/dL 06/11 [facility] (Calculated) [facility] LIPIDS VLDL 27 06/11 [facility] LIPIDS Chol 133 <=199 06/11 [facility] mg/dL [facility] LIPIDS Trig 133 <=149 06/11 [facility] mg/dL /2015 [facility] LIPIDS CHD Risk 4.29 3.90 - 06/11 [facility] 5.80 [facility] LIPIDS HDL 31 >=61 mg/dL 06/11 [facility] URINE AND UA <=1.0 0.1 - 1.0 06/11 [facility] STOOL Urobilinogen mg/dL /2015 [facility] URINE AND UA Ketones Negative Negative 06/11 [facility] STOOL mg/dL mg/dL /2015 [facility] URINE AND UA Glucose 300 mg/dL Negative 06/11 [facility] STOOL mg/dL /2015 [facility] URINE AND UA Protein >=300 Negative 06/11 [facility] STOOL mg/dL mg/dL /2015 [facility] URINE AND UA pH 6.0 5.0 - 8.0 06/11 [facility] STOOL /2015 [facility] URINE AND UA Nitrite Negative Negative 06/11 [facility] STOOL (06/10/16 8:08 PM) /2016 [facility] URINE AND UA Blood Trace Negative 06/11 [facility] STOOL *ABN* Medical (06/10/16 8:08 PM) Cente r URINE AND UA Bili Negative Negative 06/11 [facility] STOOL *NA* Medical (06/10/16 8:08 PM) Cente r URINE AND UA Mucus Few /LPF None Seen 06/11 [facility] STOOL /LPF /2015 [facility] URINE AND UA RBC 4 0 - 2 06/11 [facility] URINE AND UA Sq Epi Few /LPF Few /LPF 06/11 [facility] URINE AND UA WBC 5 0 - 5 06/11 [facility] URINE AND UA Leuk Est Small Negative 06/11 [facility] STOOL *ABN* /2015 [facility] (06/10/16 8:08 PM) Cente r URINE AND UA Hyal Cast 1 0 - 2 06/11 [facility] URINE AND UA Spec Grav 1.009 <=1.030 06/11 [facility] URINE AND UA Color Yellow Yellow 06/11 [facility] *NA* /2015 [facility] (06/10/16 8:08 PM) Cente r URINE AND UA Turbidity Clear Clear 06/11 [facility] (06/10/16 8:08 PM) [facility] URINE CHEM U Preg Negative Negative 06/11 [facility] (06/10/16 8:08 PM) [facility] URINE CHEM U Protein 375.4 06/11 [facility] URINE CHEM U Prot/Creat 5.4 06/11 [facility] URINE CHEM U Creatinine 69.80 06/11 [facility] CARDIAC BNP 1135 <=100 06/10 [facility] ENZYMES pg/mL [facility] CARDIAC Troponin-I <0.02 0.00 - 06/10 [facility] ENZYMES 0.40 [facility] CHEM PANEL Lactic Acid 0.9 0.5 - 2.2 06/26 [place] [facility] TOXICOLOGY Valproic 10 50 - 100 06/26 [facility] Acid Lvl [facility] ENDOCRINOL hCG Tot 1 06/26 <sup>3</sup>[place] OGY nterpretive Medical Data: Center Reference Range:
[...] Albumin Lvl 3.2 3.5 - 5.0 06/[address] CHEM PANEL Total 6.6 6.4 - 8.4 06/[address] CHEM PANEL Bili Total 0.6 0.2 - 1.3 06/[address] CHEM PANEL Alk Phos 59 39 - 136 06/[address] CHEM PANEL AST 11 0 - 37 06/[address] CHEM PANEL ALT 17 0 - 65 06/[address] CHEM PANEL eGFR 99 06/26 <sup>1</sup>R [facility] Comment: [facility] eGFR is calculated using the CKD-EPI formula. [...] values reflect the clinical guidelines
of the [employer]. CHEM PANEL Potassium 3.4 3.5 - 5.1 06/26 [facility] CHEM PANEL BUN 11 7 - 22 06/26 [facility]2014 [facility] CHEM PANEL Creatinine 0.8 0.5 - 1.4 06/26 [facility] CHEM PANEL Sodium Lvl 134 135 - 145 06/[address] CHEM PANEL Chloride Lvl 94 95 - 109 06/26 [facility] CHEM PANEL Calcium Lvl 9.1 8.5 - 10.5 06/26 [facility] CHEM PANEL CO2 24 24 - 32 06/[address] CHEM PANEL A/G Ratio 0.9 0.7 - 1.6 06/26 [facility]2014 [facility] CHEM PANEL Globulin 3.4 2.0 - 4.0 06/[address] CHEM PANEL B/C Ratio 14 6 - 25 06/[address] CHEM PANEL AGAP 19.4 10.0 - 06/26 [facility] 20.0 [facility] CHEM PANEL Lipase Lvl 81 73 - 393 06/26 [facility]2014 [facility] HEMATOLOGY Large Plt Slight 06/26 [facility] HEMATOLOGY Basophils # 0.0 0.0 - 0.2 06/26 [facility] HEMATOLOGY Anisocyte 1+ None Seen 06/26 [facility] *ABN* [facility] (06/26/14 5:21 AM) [facility] HEMATOLOGY Monocytes # 0.6 0.0 - 0.8 06/26 [facility] HEMATOLOGY Eosinophils 0.1 0.0 - 0.5 06/26 [facility] s # [facility] HEMATOLOGY Lymphocytes 2.5 1.0 - 5.5 06/26 [place] # /2014 [facility] HEMATOLOGY Segs 63.3 45.0 - 06/26 [place] 75.0 /2014 [facility] HEMATOLOGY Segs-Bands # 5.6 1.5 - 8.1 06/26 [facility] as /2014 [facility] HEMATOLOGY Basophils 0.0 0.0 - 1.0 06/26 [facility] HEMATOLOGY Eosinophils 0.9 0.0 - 4.0 06/26 s /2014 [facility] HEMATOLOGY Monocytes 7.0 2.0 - 12.0 06/26 [facility] HEMATOLOGY Lymphocytes 28.8 20.0 - 06/26 [place] 40.0 /2014 [facility] HEMATOLOGY WBC 8.8 3.7 - 10.4 06/26 [facility] HEMATOLOGY RBC 5.19 4.20 - 06/26 5.40 /2014 [facility] HEMATOLOGY Hgb 14.4 12.0 - 06/26 16.0 /2014 [facility] HEMATOLOGY Hct 43.1 36.0 - 06/26 48.0 /2014 [facility] HEMATOLOGY MCV 83.1 80.0 - 06/26 98.0 /2014 [facility] HEMATOLOGY MCH 27.8 27.0 - 06/26 31.0 /2014 [facility] HEMATOLOGY RDW 13.1 11.5 - 06/26 14.5 /2014 [facility] HEMATOLOGY MCHC 33.5 32.0 - 06/26 36.0 /2014 [facility] HEMATOLOGY Platelet 201 133 - 450 06/26 [facility] HEMATOLOGY MPV 10.4 7.4 - 10.4 06/26 [facility] URINALYSIS UA [place] Yeast Occasional None Seen 04/15 ABN /HPF [facility] URINALYSIS UA Mucus Few /LPF None Seen 04/15 Normal [facility] URINALYSIS UA Sq Epi Moderate Few 04/15 ABN /LPF /2012 [facility] URINALYSIS Micro? Performed 04/15 Normal (04/14/2013 23:48:55) /2012 [facility] URINALYSIS UA WBC 0-2 /HPF None Seen 04/15 Normal [facility] URINALYSIS UA Bacteria Occasional None Seen 04/15 Normal /HPF [facility] URINALYSIS UA Glucose 500 mg/dL Negative 04/15 ABN [facility] URINALYSIS UA Bili Negative Negative 04/15 MH *NA* [facility] (04/14/2013 23:48:55) URINALYSIS UA Ketones Trace Negative 04/15 ABN *ABN* [facility] (04/14/2013 23:48:55) URINALYSIS UA Blood Negative Negative 04/15 Normal (04/14/2013 23:48:55) [facility] URINALYSIS UA 0.2 0.1 - 1.0 04/15 Normal Urobilinogen [facility] URINALYSIS UA Nitrite Negative Negative 04/15 Normal (04/14/2013 23:48:55) [facility] URINALYSIS UA Leuk Est Negative Negative 04/15 Normal (04/14/2013 23:48:55) [facility] URINALYSIS UA Turbidity Clear Clear 04/15 Normal (04/14/2013 23:48:55) [facility] URINALYSIS UA Color Yellow Yellow 04/15 *NA* [facility] (04/14/2013 23:48:55) URINALYSIS UA pH 7.0 5.0 - 8.0 04/15 Normal [facility] URINALYSIS UA Spec Grav 1.025 <=1.030 04/15 Normal [facility] URINALYSIS UA Protein Trace Negative 04/15 ABN *ABN* [facility] (04/14/2013 23:48:55) CHEMISTRY S Preg Negative Negative 04/15 *NA* [facility] (04/14/2013 23:28:00) CHEMISTRY Lipase Lvl 233 73 - 393 04/15 Normal [facility] CHEMISTRY Globulin 4.1 2.0 - 4.0 04/15 HI [facility] CHEMISTRY AGAP 10.5 10.0 - 04/15 Normal 20.0 [facility] CHEMISTRY B/C Ratio 6 6 - 25 04/15 Normal [facility] CHEMISTRY A/G Ratio 0.7 0.7 - 1.6 04/15 Normal [facility] CHEMISTRY eGFR 130 04/15 <sup>1</sup>R esult [facility] Comment: The eGFR is calculated using the [...] Lvl 2.9 3.5 - 5.0 04/15 LOW [facility] CHEMISTRY ASPARTATE 20 0 - 37 04/15 Normal TRANSAMINASE [facility] CHEMISTRY Bili Total 0.5 0.2 - 1.3 04/15 Normal [facility] CHEMISTRY Alk Phos 89 39 - 136 04/15 Normal [facility] CHEMISTRY ALANINE 11 0 - 65 04/15 AMINOTRANS [facility] RAS CHEMISTRY Creatinine 0.5 0.5 - 1.4 04/15 Normal [facility] CHEMISTRY BUN 3 7 - 22 04/15 LOW [facility] CHEMISTRY Glucose Lvl 255 70 - 99 04/15 HI <sup>2</sup>I nterpretive [facility] Data: Adult reference range values reflect the clinical guidelines
of the [employer]. CHEMISTRY Total 7.0 6.4 - 8.4 04/15 Normal Protein [facility] CHEMISTRY Calcium Lvl 8.7 8.5 - 10.5 04/15 Normal [facility] CHEMISTRY CO2 29 24 - 32 04/15 Normal [facility] CHEMISTRY Chloride Lvl 104 95 - 109 04/15 Normal [facility] CHEMISTRY Potassium 3.5 3.5 - 5.1 04/15 Normal l [facility] CHEMISTRY Sodium Lvl 140 135 - 145 04/15 Normal [facility] HEMATOLOGY PROTIME 12.1 12.0 - 04/15 Normal 14.7 [facility] HEMATOLOGY aPTT 39.0 22.9 - 04/15 HI <sup>4</sup>I 35.8 nterpretive [facility] Data: Heparin Therapeutic Range: 57 - 92 Seconds HEMATOLOGY INR 0.90 0.85 - 04/15 Normal <sup>3</sup>I MH 1.17 nterpretive [facility] Data: RECOMMENDED RANGES FOR PROTIME INR:
2.0-3.0 for most medical and surgical thromboemboli c states.
2.5-3.5 for artificial heart valves and recurrent embolism.<br/ >
INR SHOULD BE USED ONLY FOR PATIENTS ON STABLE ANTICOAGULANT THERAPY. HEMATOLOGY MCH 29.4 27.0 - 04/15 Normal MH 31.0 /2012 [facility] HEMATOLOGY MCV 86.1 81.0 - 04/15 Normal MH 99.0 /2012 [facility] HEMATOLOGY Hct 29.4 36.0 - 04/15 LOW MH 48.0 /2012 [facility] HEMATOLOGY RDW 14.0 11.5 - 04/15 Normal MH 14.5 [facility] HEMATOLOGY WBC X 10x3 6.2 3.7 - 10.4 04/15 Normal /2012 [facility] HEMATOLOGY Platelet 178 133 - 450 04/15 Normal [facility] HEMATOLOGY MCHC 34.1 32.0 - 04/15 Normal 36.0 [facility] HEMATOLOGY RBC X 10x6 3.41 4.20 - 04/15 LOW MH 5.40 /2012 [facility] HEMATOLOGY Hgb 10.0 12.0 - 04/15 LOW 16.0 /2012 [facility] HEMATOLOGY MPV 10.1 7.4 - 10.4 04/15 Normal [facility] HEMATOLOGY Segs-Bands # 4.4 1.5 - 8.1 04/15 Normal [facility] HEMATOLOGY Basophils 0.7 0.0 - 1.0 04/15 Normal [facility] HEMATOLOGY Segs 70.7 45.0 - 04/15 Normal 75.0 [facility] HEMATOLOGY Monocytes # 0.3 0.0 - 0.8 04/15 Normal [facility] HEMATOLOGY Lymphocytes 1.2 1.0 - 5.5 04/15 Normal MH # /2012 [facility] HEMATOLOGY Monocytes 4.5 2.0 - 12.0 04/15 Normal /2012 [facility] HEMATOLOGY Eosinophils 4.1 0.0 - 4.0 04/15 HI MH /2012 [facility] HEMATOLOGY Lymphocytes 20.0 20.0 - 04/15 Normal 40.0 [facility] HEMATOLOGY Basophils # 0.0 0.0 - 0.2 04/15 Normal /2012 [facility] HEMATOLOGY Eosinophils 0.3 0.0 - 0.5 04/15 Normal MH # /2012 [facility] BEDSIDE Gluc POC 260 70 - 99 03/15 HI <sup>1</sup>I GLUCOSE [facility] /2011 nterpretive [facility] TESTING Data: Upper Reportable Limit: 200 mg/dL. BEDSIDE Comment1 Notify 03/15 NA GLUCOSE RN/MD /2011 [facility] TESTING URINALYSIS UA Protein Trace Negative 03/14 [facility] *ABN* /2011 [facility] (03/14/2012 18:40:00) URINALYSIS UA pH 6.0 5.0 - 8.0 03/14 Normal /2011 [facility] URINALYSIS UA Ketones >=80 mg/dL Negative 03/14 NA *NA* /2011 [facility] (03/14/2012 18:40:00) URINALYSIS UA Glucose >=1000 mg/dL Negative 03/14 [facility] *ABN* [facility] (03/14/2012 18:40:00) URINALYSIS UA Blood Negative Negative 03/14 Normal (03/14/2012 18:40:00) [facility] URINALYSIS UA Nitrite Negative Negative 03/14 Normal (03/14/2012 18:40:00) [facility] URINALYSIS UA 0.2 0.1 - 1.0 03/14 Normal Urobilinogen /2011 [facility] URINALYSIS UA Leuk Est Negative Negative 03/14 Normal (03/14/2012 18:40:00) [facility] URINALYSIS UA Bili Negative Negative 03/14 [facility] *NA* [facility] (03/14/2012 18:40:00) URINALYSIS UA Turbidity Clear Clear 03/14 Normal (03/14/2012 18:40:00) [facility] URINALYSIS UA Color Yellow Yellow 03/14 NA *NA* /2011 [facility] (03/14/2012 18:40:00) URINALYSIS UA Spec Grav >=1.030 <=1.030 03/14 [facility] *ABN* [facility] (03/14/2012 18:40:00) URINALYSIS UA Sq Epi Occasional /LPF Few 03/14 Normal (03/14/2012 18:40:00) [facility] URINALYSIS UA WBC 3-5 /HPF None Seen 03/14 Normal (03/14/2012 18:40:00) /2012 [facility] URINALYSIS UA Bacteria Occasional /HPF None Seen 03/14 Normal (03/14/2012 18:40:00) [facility] CHEMISTRY S Preg Negative Negative 03/14 NA MH *NA* /2011 [facility] (03/14/2012 17:50:00) CHEMISTRY Lipase Lvl 45 73 - 393 03/14 LOW /2011 [facility] CHEMISTRY A/G Ratio 1.2 0.7 - 1.6 03/14 Normal [facility] CHEMISTRY Globulin 3.8 2.0 - 4.0 03/14 Normal [facility] CHEMISTRY B/C Ratio 21 6 - 25 03/14 Normal [facility] CHEMISTRY AGAP 16.8 10.0 - 03/14 Normal MH 20.0 [facility] CHEMISTRY Bili Total 1.1 0.2 - 1.3 03/14 Normal [facility] CHEMISTRY Total 8.2 6.4 - 8.4 03/14 Normal [facility] CHEMISTRY Potassium 3.8 3.5 - 5.1 03/14 Normal [facility] CHEMISTRY Creatinine 0.7 0.5 - 1.4 03/14 Normal Lvl [facility] CHEMISTRY Sodium Lvl 139 135 - 145 03/14 Normal [facility] CHEMISTRY Chloride Lvl 99 95 - 109 03/14 Normal [facility] CHEMISTRY CO2 27 24 - 32 03/14 Normal [facility] CHEMISTRY Glucose Lvl 301 70 - 99 03/14 HI <sup>2</sup>I nterpretive [facility] Data: Adult reference range values reflect the clinical guidelines
of the [employer]. CHEMISTRY BUN 15 7 - 22 03/14 Normal [facility] CHEMISTRY ALT 24 0 - 65 03/14 Normal [facility] CHEMISTRY AST 20 0 - 37 03/14 Normal [facility] CHEMISTRY Alk Phos 67 39 - 136 03/14 Normal [facility] CHEMISTRY Albumin Lvl 4.4 3.5 - 5.0 03/14 Normal [facility] CHEMISTRY Calcium Lvl 9.9 8.5 - 10.5 03/14 Normal [facility] HEMATOLOGY MPV 11.8 7.4 - 10.4 03/14 HI /2011 [facility] HEMATOLOGY MCHC 35.9 32.0 - 03/14 Normal MH 36.0 /2011 [facility] HEMATOLOGY MCH 31.2 27.0 - 0924 HI MH 31.0 /2011 [facility] HEMATOLOGY Platelet 189 133 - 450 03/14 Normal MH /2011 [facility] HEMATOLOGY RDW 13.1 11.5 - 03/14 Normal MH 14.5 /2011 [facility] HEMATOLOGY Hct 40.7 36.0 - 03/14 Normal MH 48.0 /2011 [facility] HEMATOLOGY Hgb 14.6 12.0 - 03/14 Normal MH 16.0 /2011 [facility] HEMATOLOGY MCV 87.0 81.0 - 03/14 Normal 99.0 /2011 [facility] HEMATOLOGY WBC 11.7 3.7 - 10.4 03/14 HI MH /2011 [facility] HEMATOLOGY RBC 4.68 4.20 - 03/14 Normal MH 5.40 /2011 [facility] HEMATOLOGY Basophils # 0.0 0.0 - 0.2 03/14 Normal MH /2011 [facility] HEMATOLOGY Basophils 0.2 0.0 - 1.0 03/14 Normal MH /2011 [facility] HEMATOLOGY Eosinophils 0.0 0.0 - 0.5 03/14 Normal MH # /2011 [facility] HEMATOLOGY Monocytes # 0.4 0.0 - 0.8 03/14 Normal MH /2011 [facility] HEMATOLOGY Segs-Bands # 10.6 1.5 - 8.1 03/14 HI MH /2011 [facility] HEMATOLOGY Lymphocytes 0.7 1.0 - 5.5 03/14 LOW MH # /2011 [facility] HEMATOLOGY Monocytes 3.4 2.0 - 12.0 03/14 Normal MH /2011 [facility] HEMATOLOGY Plt Morph Normal 03/14 Normal (03/14/2012 17:50:00) /2011 So [facility] HEMATOLOGY Lymphocytes 6.0 20.0 - 03/14 LOW 40.0 /2011 [facility] HEMATOLOGY Eosinophils 0.0 0.0 - 4.0 03/14 Normal MH /2011 [facility] HEMATOLOGY Segs 90.4 45.0 - 03/14 HI MH 75.0 /2011 [facility] HEMATOLOGY RBC Morph Normal 03/14 Normal (03/14/2012 17:50:00) /2011 So [facility] BEDSIDE Gluc POC 167 70 - 99 11/29 HI <sup>1</sup>I [facility] GLUCOSE [facility] /2011 nterpretive Medical TESTING Data: Center Upper Reportable Limit: 200 mg/dL. BEDSIDE Comment1 Notify 11/29 NA [facility] GLUCOSE RN/MD /2011 Medical TESTING Center BEDSIDE Comment2 Sliding 11/29 NA [facility] GLUCOSE Scale /2011 Medical TESTING Center BEDSIDE Gluc POC 189 70 - 99 11/29 HI <sup>2</sup>I [facility] GLUCOSE [facility] /2011 nterpretive Medical TESTING Data: Center Upper Reportable Limit: 200 mg/dL. BEDSIDE Comment1 Notify 11/29 NA [facility] GLUCOSE RN/ /2011 Medical TESTING Center BEDSIDE Comment2 Sliding 11/29 NA [facility] GLUCOSE Scale /2011 Medical TESTING Center BEDSIDE Comment2 Sliding 11/29 NA [facility] GLUCOSE Scale /2011 Medical TESTING Center BEDSIDE Gluc POC 110 70 - 99 11/29 [place] <sup>3</sup>I [facility] GLUCOSE [facility] /2011 nterpretive Medical TESTING Data: Center Upper Reportable Limit: 200 mg/dL. BEDSIDE Comment1 Notify 11/29 NA [facility] GLUCOSE RN/ /2011 Medical TESTING Center CHEMISTRY U Preg Negative Negative 11/28 Normal [facility] (11/28/2011 19:00:00) Md dical Center URINALYSIS Micro? Performed 11/28 Normal [facility] (11/28/2011 19:00:00) Md dical Center URINALYSIS UA Sq Epi Occasional /LPF Few 11/28 Normal [facility] (11/28/2011 19:00:00) Md dical Center URINALYSIS UA RBC None Seen 0 - 2 11/28 Normal [facility] (11/28/2011 19:00:00) Md dical Center URINALYSIS UA WBC Occasional 0 - 5 11/28 NA [facility] URINALYSIS UA Protein Negative mg/dL Negative 11/28 Normal [facility] (11/28/2011 19:00:00) Md dical Center URINALYSIS UA pH 7.0 5.0 - 8.0 11/28 Normal [facility] URINALYSIS UA Spec Grav 1.020 <=1.030 11/28 Normal Medical Center URINALYSIS UA Turbidity Clear Clear 11/28 Normal [facility] (11/28/2011 19:00:00) Md dical Center URINALYSIS UA Color Yellow Yellow 11/28 NA [facility] *NA* /2011 Medical (11/28/2011 19:00:00) Ce nter URINALYSIS UA 0.2 0.1 - 1.0 11/28 Normal [facility] Urobilinogen /2011 Medical Center URINALYSIS UA Blood Negative Negative 11/28 Normal [facility] (11/28/2011 19:00:00) Md dical Center URINALYSIS UA Bili Negative Negative 11/28 NA [place] *NA* Medical (11/28/2011 19:00:00) Ce nter URINALYSIS UA Ketones >=80 mg/dL Negative 11/28 ABN MH [facility] *ABN* Medical (11/28/2011 19:00:00) Ce nter URINALYSIS UA Glucose >=1000 mg/dL Negative 11/28 ABN [place] *ABN* Medical (11/28/2011 19:00:00) Ce nter URINALYSIS UA Nitrite Negative Negative 11/28 Normal [facility] (11/28/2011 19:00:00) Md dical Center URINALYSIS UA Leuk Est Negative Negative 11/28 [place] (11/28/[place] 19:00:00) Md dical Center CHEMISTRY pO2 [place] 60 20 - 49 11/27 [facility] Medical Center CHEMISTRY pCO2 [place] 41 38 - 52 11/27 Normal Medical Center CHEMISTRY pH [place] 7.45 7.28 - 11/27 [facility] 7.42 Medical Center CHEMISTRY Temp [place] 37.0 11/27 NA Medical Center CHEMISTRY O2 Sat [place] 92.0 40.0 - 11/27 [facility] 70.0 Medical Center CHEMISTRY BE [place] 4 -2-2 - 2 11/27 [facility] Medical Center CHEMISTRY HCO3 [place] 28.5 22.0 - 11/27 [facility] [place] 26.0 Medical Center CHEMISTRY Lactic Acid 1.6 0.5 - 2.2 11/27 Normal [facility] CHEMISTRY Lipase Lvl 125 73 - 393 11/27 Normal Medical Center CHEMISTRY Albumin Lvl 4.2 3.5 - 5.0 11/27 Normal Medical Center CHEMISTRY CO2 23 24 - 32 11/27 LOW Medical Center CHEMISTRY Chloride Lvl 98 95 - 109 11/27 Normal Medical Center CHEMISTRY Potassium 3.8 3.5 - 5.1 11/27 Normal [facility] CHEMISTRY Sodium Lvl 138 135 - 145 11/27 Normal Medical Center CHEMISTRY Creatinine 0.7 0.5 - 1.4 11/27 Normal [facility] Lvl Medical Center CHEMISTRY BUN 9 7 - 22 11/27 Normal Medical Center CHEMISTRY Glucose Lvl 269 70 - 99 11/27 HI <sup>4</sup>I T ex nterpretive Medical Data: Adult Center reference range values reflect the clinical guidelines of the [employer]. CHEMISTRY B/C Ratio 13 6 - 25 11/27 Normal [facility] CHEMISTRY AGAP 20.8 10.0 - 11/27 HI [place] 20.0 Medical Center CHEMISTRY Calcium Lvl 9.3 8.5 - 10.5 11/27 Normal [facility] CHEMISTRY Total 6.7 6.4 - 8.4 11/27 Normal [facility] Protein [facility] CHEMISTRY A/G Ratio 1.7 0.7 - 1.6 11/27 [facility] CHEMISTRY Globulin 2.5 2.0 - 4.0 11/27 Normal [facility] CHEMISTRY AST 18 0 - 37 11/27 Normal [facility] CHEMISTRY Alk Phos 62 39 - 136 11/27 Normal [facility] CHEMISTRY ALT 32 0 - 65 11/27 Normal [facility] CHEMISTRY Bili Total 0.7 0.2 - 1.3 11/27 Normal [facility] HEMATOLOGY Anisocyte 1+ None Seen 11/27 [facility] ABN Medical (11/28/2011 15:00:00) Ce nter HEMATOLOGY Monocytes # 0.1 0.0 - 0.8 11/27 [place] [facility] HEMATOLOGY Eosinophils 0.0 0.0 - 0.5 11/27 Normal [facility] HEMATOLOGY Basophils # 0.0 0.0 - 0.2 11/27 Normal [facility] HEMATOLOGY Neut Vac Slight None Seen 11/27 [facility] ABN Medical (11/28/2011 15:00:00) Ce nter HEMATOLOGY Large Plt Slight None [facility] 15:00:00) Ce nter HEMATOLOGY Segs-Bands # 5.7 1.5 - 8.1 11/27 Normal [facility] HEMATOLOGY Lymphocytes 0.8 1.0 - 5.5 11/27 [place] # /2011 Medical Center HEMATOLOGY Eosinophils 0.2 0.0 - 4.0 11/27 [place] /2011 [facility] HEMATOLOGY Basophils 0.0 0.0 - 1.0 11/27 Normal /2011 [facility] HEMATOLOGY Monocytes 1.9 2.0 - 12.0 06 LOW /2011 [facility] HEMATOLOGY Segs 86.2 45.0 - 11/27 [facility] [place] 75.0 /2011 Medical [facility] HEMATOLOGY Lymphocytes 11.7 20.0 - 11/27 LOW [place] 40.0 /2011 [facility] HEMATOLOGY MPV 10.8 7.4 - 10.4 11/27 [facility] HEMATOLOGY Platelet 161 133 - 450 11/27 Normal [facility] HEMATOLOGY MCHC 35.6 32.0 - 11/27 [facility] [place] 36.0 /2011 [facility] HEMATOLOGY RDW 12.4 11.5 - 11/27 Normal [place] 14.5 /2011 [facility] HEMATOLOGY MCH 30.7 27.0 - 11/27 Normal [place] 31.0 /2011 [facility] HEMATOLOGY MCV 86.1 81.0 - 11/27 Normal [place] 99.0 /2011 [facility] HEMATOLOGY Hct 33.6 36.0 - 11/27 LOW [place] 48.0 /2011 [facility] HEMATOLOGY Hgb 12.0 12.0 - 11/27 [facility] [place] 16.0 /2011 [facility] HEMATOLOGY RBC 3.90 4.20 - 11/27 [facility] [place] 5.40 /2011 [facility] HEMATOLOGY WBC 6.6 3.7 - 10.4 11/27 Normal [facility] CHEMISTRY UDS Note See Note 5 11/27 NA <sup>5</sup>I [place] *NA* /2011 nterpretive Medical (11/28/2011 14:51:00) Data: Drug s Center reported as positive have not been [...] mg/dL CHEMISTRY U Phencyc Negative Negative 11/27 NA [facility] *NA* Medical (11/28/2011 14:51:00) Ce nter CHEMISTRY U Kelly Scr Negative Negative 11/27 NA [facility] *NA* Medical (11/28/2011 14:51:00) Ce nter CHEMISTRY U Amph Scr Negative Negative 11/27 [facility] *NA* Medical (11/28/2011 14:51:00) Ce nter CHEMISTRY U Opiate Scr Negative Negative 11/27 [facility] *NA Medical (11/28/2011 14:51:00) Ce nter CHEMISTRY U Cocaine Negative Negative 11/27 [facility] Scr *NA* Medical (11/28/2011 14:51:00) Ce nter CHEMISTRY U Cannab Scr Negative Negative 11/27 [facility] *NA* Medical (11/28/2011 14:51:00) Ce nter CHEMISTRY U Benzodia Negative Negative 11/27 [facility] Scr *NA Medical (11/28/2011 14:51:00) Ce nter BEDSIDE Comment1 Notify 09/17 NA [facility] GLUCOSE RN/MD /2011 Medical TESTING Center BEDSIDE Gluc POC 328 70 - 99 09/17 HI <sup>1</sup>I [facility] GLUCOSE Lifscn /2011 nterpretive Medical TESTING Data: Center Upper Reportable Limit: 200 mg/dL. CHEMISTRY U Preg Negative Negative 09/17 Normal [facility] (09/18/2011 10:30:00) Md dical Center URINALYSIS UA WBC None Seen None Seen 09/17 Normal [facility] (09/18/2011 10:30:00) Md dical Center URINALYSIS UA RBC None Seen 0 - 2 09/17 Normal [facility] (09/18/2011 10:30:00) Md dical Center URINALYSIS UA Bacteria None Seen None Seen 09/17 [place] (09/18/2011 10:30:00) Md dical Center URINALYSIS UA Amorph Few /HPF None Seen 09/17 ABN [facility] *ABN* Medical (09/18/2011 10:30:00) Ce nter URINALYSIS Micro? Performed 09/17 Normal [facility] (09/18/2011 10:30:00) Md dical Center URINALYSIS UA Sq Epi Rare /LPF Few 09/17 Normal [facility] (09/18/2011 10:30:00) Md dical Center URINALYSIS UA Ketones 15 mg/dL Negative 09/17 ABN [facility] *ABN* Medical (09/18/2011 10:30:00) Ce nter URINALYSIS UA Glucose >=1000 mg/dL Negative 09/17 [place]N [place] * Medical (09/18/2011 10:30:00) Ce nter URINALYSIS UA Protein Trace Negative 09/17 ABN [facility] Medical (09/18/2011 10:30:00) Ce nter URINALYSIS UA 0.2 0.1 - 1.0 09/17 Normal [facility] Urobilinogen /2011 [facility] [place] [facility] URINALYSIS UA Blood Negative Negative 09/17 Normal [facility] (09/18/2011 10:30:00) Md dical Center [facility]YSIS [facility] Bili Negative [facility]09/18/2011 10:30:00[facility] Ce nter URINALYSIS UA Leuk Est Negative Negative [place]/17 [place]18/[place] 10:30:00) Md dical Center URINALYSIS UA Nitrite Negative Negative 09/17 Normal [facility] (09/18/2011 10:30:00) Md dical Center URINALYSIS UA pH 7.5 5.0 - 8.0 09/17 Normal [facility] Center URINALYSIS UA Spec Grav 1.010 <=1.030 09/17 Normal [facility] Center URINALYSIS UA Turbidity Slight Cloudy Clear 09/17 Normal [facility] (09/18/2011 10:30:00) Md dical Center URINALYSIS UA Color Yellow Yellow 09/17 NA *NA* Medical (09/18/2011 10:30:00) Ce nter CHEMISTRY Phosphorus 4.4 2.5 - 4.5 09/17 Normal Medical Center CHEMISTRY Magnesium 1.6 1.8 - 2.4 09/17 LOW [facility] l [facility] [place] [facility] BEDSIDE Gluc POC >400 70 - 99 09/17 CRIT <sup>2</sup>I [facility] GLUCOSE [facility] /2011 nterpretive Medical TESTING [...] Sat [place] 48.0 40.0 - 09/17 Normal 70.0 Medical Center CHEMISTRY Temp [place] 37.0 09/17 NA Medical Center CHEMISTRY pH [place] 7.47 7.28 - 09/17 HI [place] 7.42 Medical Center CHEMISTRY Calcium Lvl 10.1 8.5 - 10.5 09/17 Normal a s Medical Center CHEMISTRY Chloride Lvl 92 95 - 109 09/17 LOW Medical Center CHEMISTRY CO2 30 24 - 32 09/17 Normal [facility] [place] CHEMISTRY Potassium 3.5 3.5 - 5.1 09/17 Normal [facility] CHEMISTRY Sodium Lvl 133 135 - 145 09/17 LOW Medical Center CHEMISTRY Creatinine 1.3 0.5 - 1.4 09/17 Normal [facility] CHEMISTRY Glucose Lvl 383 70 - 99 09/17 HI <sup>3</sup>I [place] nterpretive Medical Data: Adult Center reference range values reflect the clinical guidelines of the [employer]. CHEMISTRY BUN 17 7 - 22 09/17 Normal [facility] [place] CHEMISTRY AGAP 14.5 10.0 - 09/17 Normal [place] 20.0 Medical Center HEMATOLOGY MPV 12.0 7.4 - 10.4 09/17 HI Medical Center HEMATOLOGY Platelet 226 133 - 450 09/17 Normal Medical Center HEMATOLOGY MCHC 33.7 32.0 - 09/17 Normal [place] 36.0 /2011 Medical Center HEMATOLOGY MCH 28.5 27.0 - 09/17 Normal [place] 31.0 /2011 Medical Center HEMATOLOGY RDW 15.1 11.5 - 09/17 HI [place] 14.5 /2011 Medical Center HEMATOLOGY MCV 84.6 81.0 - 09/17 Normal [place] 99.0 /2011 Medical Center HEMATOLOGY Hct 36.4 36.0 - 09/17 Normal [place] 48.0 /2011 Medical Center HEMATOLOGY Hgb 12.3 12.0 - 09/17 Normal [place] 16.0 /2011 Medical Center HEMATOLOGY RBC 4.30 4.20 - 09/17 Normal [place] 5.40 /2011 Medical Center HEMATOLOGY WBC 11.7 3.7 - 10.4 09/17 HI [facility] HEMATOLOGY Monocytes 2.9 2.0 - 12.0 09/17 Normal Medical Center HEMATOLOGY Eosinophils 0.2 0.0 - 4.0 09/17 [place] [facility] HEMATOLOGY Basophils 0.0 0.0 - 1.0 09/17 Normal [facility] HEMATOLOGY Eosinophils 0.0 0.0 - 0.5 09/17 [place] # [facility] HEMATOLOGY Monocytes # 0.3 0.0 - 0.8 09/17 [place] [facility] HEMATOLOGY Segs 92.0 45.0 - 09/17 HI [place] 75.0 /2011 Medical Center HEMATOLOGY Lymphocytes 4.9 20.0 - 09/17 LOW [place] 40.0 /2011 Medical Center HEMATOLOGY Spherocyte Rare None Seen 09/17 [facility] *ABN* Medical (09/18/2011 08:52:00) Ce nter HEMATOLOGY Large Plt Slight None Seen 09/17 [facility] *ABN* Medical (09/18/2011 08:52:00) Ce nter HEMATOLOGY Microcyte 1+ None [facility] (09/18/2011 08:52:00) Ce nter HEMATOLOGY Schistocyte Rare 09/17 NA Medical Center HEMATOLOGY Macrocyte 1+ None Seen 09/17 [facility] *ABN* Medical (09/18/2011 08:52:00) Ce nter HEMATOLOGY Lymphocytes 0.6 1.0 - 5.5 09/17 [place] # /2011 Medical Center HEMATOLOGY Segs-Bands # 10.8 1.5 - 8.1 09/17 HI [facility] /2011 Medical Center HEMATOLOGY Basophils # 0.0 0.0 - 0.2 09/17 [facility] [place] [facility] HEMATOLOGY Anisocyte 1+ None Seen 09/17 ABN [facility] *ABN* Medical (09/18/2011 08:52:00) Ce nter IMMUNOLOGY [facility]-HIV 1/2 Negative Negative 09/17 NA [facility] *NA* Medical (09/18/2011 08:52:00) Ce nter BEDSIDE Gluc POC 215 70 - 99 09/08 HI <sup>1</sup>I [facility] TEST[facility] Data: Center Upper Reportable Limit: 200 mg/dL. BEDSIDE Comment1 Notify 09/08 [facility] GLUCOSE RN/ Medical TESTING Center BEDSIDE Comment1 Notify 09/08 [facility] GLUCOSE RN/MD /2011 Medical TESTING Center BEDSIDE Gluc POC 91 65 - 110 09/08 Normal <sup>2</sup>I [facility]SE [facility] TESTING Data: Center Upper Reportable Limit: 200 mg/dL. BEDSIDE Comment1 Notify 09/08 [facility] GLUCOSE RN/MD /2011 Medical TESTING Center BEDSIDE Gluc POC 148 65 - 110 09/08 [place] <sup>3</sup>I [facility]SE [facility] TESTING Data: Center Upper Reportable Limit: 200 mg/dL. CHEMISTRY Sodium Lvl 143 135 - 145 09/07 Normal [facility] [place] CHEMISTRY Glucose Lvl 105 09/07 NA <sup>4</sup>I [place] nterpretive Medical Data: Center Reference Ranges : 0 - 7 days : 41 - 90 mg/dL 7 days - 150 yrs : 70 - 99 mg/dL (fasting), based on the clinical recommendatio ns of the [employer]. CHEMISTRY CO2 29 24 - 32 09/07 Normal [facility] CHEMISTRY Chloride Lvl 103 95 - 109 09/07 Normal [facility] CHEMISTRY BUN 10 7 - 22 09/07 Normal [facility] [place] CHEMISTRY Potassium 3.8 3.5 - 5.1 09/07 Normal [place] Lvl Medical Center CHEMISTRY Creatinine 0.6 0.5 - 1.4 09/07 Normal [place] Lvl Medical Center CHEMISTRY Calcium Lvl 8.5 8.5 - 10.5 09/07 [place] [facility] CHEMISTRY AGAP 14.8 10.0 - 09/07 Normal [place] 20.0 /2011 Medical Center HEMATOLOGY MCH 28.9 27.0 - 09/07 Normal [place] 31.0 Medical Center HEMATOLOGY MCV 82.1 81.0 - 09/07 Normal [place] 99.0 /2011 Medical Center HEMATOLOGY Hct 25.9 36.0 - 09/07 LOW [place] 48.0 Medical Center HEMATOLOGY Platelet 233 133 - 450 09/07 Normal Medical Center HEMATOLOGY RDW 14.5 11.5 - 09/07 Normal [place] 14.5 Medical Center HEMATOLOGY MCHC 35.2 32.0 - 09/07 Normal [place] 36.0 /2011 Medical Center HEMATOLOGY Hgb 9.1 12.0 - 09/07 LOW [place] 16.0 Medical Center HEMATOLOGY RBC 3.15 4.20 - 09/07 LOW [place] 5.40 /2011 Medical Center HEMATOLOGY MPV 9.0 7.4 - 10.4 09/07 Normal Medical Center HEMATOLOGY WBC 6.3 3.7 - 10.4 09/07 Normal [facility] HEMATOLOGY Eosinophils 0.0 0.0 - 0.5 09/07 [place] [facility] HEMATOLOGY Basophils # 0.0 0.0 - 0.2 09/07 Normal [place] [facility] HEMATOLOGY Segs-Bands # 3.8 1.5 - 8.1 09/07 Normal [facility] HEMATOLOGY Lymphocytes 2.0 1.0 - 5.5 09/07 [place] # [facility] HEMATOLOGY Basophils 0.5 0.0 - 1.0 09/07 Normal Medical Center HEMATOLOGY Eosinophils 0.7 0.0 - 4.0 09/07 [place] [facility] HEMATOLOGY Monocytes 6.2 2.0 - 12.0 09/07 Normal Medical [facility] HEMATOLOGY Segs 61.1 45.0 - 09/07 Normal [place] 75.0 Medical Center HEMATOLOGY Lymphocytes 31.5 20.0 - 09/07 Normal [place] 40.0 /2011 Medical Center HEMATOLOGY Monocytes # 0.4 0.0 - 0.8 09/07 Normal [place] [facility] CHEMISTRY CO2 27 24 - 32 09/06 Normal Medical Center CHEMISTRY Chloride Lvl 104 95 - 109 09/06 Normal Medical Center CHEMISTRY Creatinine 0.5 0.5 - 1.4 09/06 Normal [facility] CHEMISTRY BUN 10 7 - 22 09/06 Normal Medical Center CHEMISTRY Potassium 4.1 3.5 - 5.1 09/06 Normal [facility] CHEMISTRY Sodium Lvl 141 135 - 145 09/06 Normal Medical Center CHEMISTRY Glucose Lvl 83 09/06 NA <sup>5</sup>I [place] ex nterpretive Medical Data: Center Reference Ranges : 0 - 7 days : 41 - 90 mg/dL 7 days - 150 yrs : 70 - 99 mg/dL (fasting), based on the clinical recommendatio ns of the [employer]. CHEMISTRY Calcium Lvl 8.4 8.5 - 10.5 09/06 LOW a [facility] CHEMISTRY AGAP 14.1 10.0 - 09/06 Normal [place] 20.0 /2011 Medical Center HEMATOLOGY Hct 35.5 36.0 - 09/06 LOW [place] 48.0 /2011 Medical Center HEMATOLOGY WBC 4.7 3.7 - 10.4 09/06 Normal Medical Center HEMATOLOGY MCV 92.6 81.0 - 09/06 Normal [place] 99.0 /2011 Medical Center HEMATOLOGY MCH 31.4 27.0 - 09/06 HI [place] 31.0 /2011 Medical Center HEMATOLOGY RBC 3.84 4.20 - 09/06 LOW [place] 5.40 /2011 Medical Center HEMATOLOGY Hgb 12.1 12.0 - 09/06 Normal [place] 16.0 Medical Center HEMATOLOGY Platelet 287 133 - 450 09/06 Normal Medical Center HEMATOLOGY RDW 12.7 11.5 - 09/06 Normal [place] 14.5 Medical Center HEMATOLOGY MCHC 33.9 32.0 - 09/06 Normal [place] 36.0 /2011 Medical Center HEMATOLOGY MPV 7.2 7.4 - 10.4 09/06 LOW Medical Center HEMATOLOGY INR 0.95 0.85 - 09/06 Normal <sup>7</sup>I [place] 1.17 nterpretive Medical Data: Center RECOMMENDED RANGES FOR PROTIME INR: 2.0-3.0 for most medical and surgical thromboemboli c states. 2.5-3.5 for artificial heart valves and recurrent embolism. INR SHOULD BE USED ONLY FOR PATIENTS ON STABLE ANTICOAGULANT THERAPY. HEMATOLOGY PT 12.7 12.0 - 09/06 Normal [place] 14.7 [facility] HEMATOLOGY PTT 28.5 22.9 - 09/06 Normal <sup>9</sup>I [place] 35.8 /2011 nterpretive Medical Data: Heparin Center Therapeutic Range: 57 - 92 Seconds HEMATOLOGY Eosinophils 0.1 0.0 - 0.5 09/06 Normal [facility] HEMATOLOGY Basophils # 0.0 0.0 - 0.2 09/06 Normal [facility] HEMATOLOGY Basophils 0.4 0.0 - 1.0 09/06 Normal [facility] HEMATOLOGY Segs-Bands # 2.1 1.5 - 8.1 09/06 Normal [facility] HEMATOLOGY Monocytes 9.0 2.0 - 12.0 09/06 Normal [facility] HEMATOLOGY Eosinophils 2.4 0.0 - 4.0 09/06 Normal [facility] HEMATOLOGY Monocytes # 0.4 0.0 - 0.8 09/06 Normal [facility] HEMATOLOGY Lymphocytes 2.0 1.0 - 5.5 09/06 [place] [facility] HEMATOLOGY Lymphocytes 42.8 20.0 - 09/06 HI [place] 40.0 [facility] HEMATOLOGY Segs 45.4 45.0 - 09/06 Normal [place] 75.0 [facility] CHEMISTRY Chloride Lvl 105 95 - 109 09/06 Normal [facility] CHEMISTRY Potassium 4.1 3.5 - 5.1 09/06 Normal [facility] l [facility] CHEMISTRY Sodium Lvl 143 135 - 145 09/06 Normal [facility] CHEMISTRY CO2 29 24 - 32 09/06 Normal [facility] CHEMISTRY Calcium Lvl 8.7 8.5 - 10.5 09/06 Normal a [facility] CHEMISTRY BUN 6 7 - 22 09/06 LOW [facility] CHEMISTRY Creatinine 0.6 0.5 - 1.4 09/06 Normal [facility] Lvl [facility] CHEMISTRY Glucose Lvl 118 09/06 NA <sup>6</sup>I [place] nterpretive Medical Data: Center Reference Ranges : 0 - 7 days : 41 - 90 mg/dL 7 days - 150 yrs : 70 - 99 mg/dL (fasting), based on the clinical recommendatio ns of the [employer]. CHEMISTRY AGAP 13.1 10.0 - 09/06 Normal [facility] 20.0 [facility] HEMATOLOGY Basophils # 0.0 0.0 - 0.2 09/06 Normal [facility] HEMATOLOGY Monocytes # 0.3 0.0 - 0.8 09/06 Normal [facility] HEMATOLOGY Eosinophils 0.1 0.0 - 0.5 09/06 Normal [facility] HEMATOLOGY Segs-Bands # 2.8 1.5 - 8.1 09/06 Normal [facility] HEMATOLOGY Lymphocytes 1.7 1.0 - 5.5 09/06 Normal [facility] HEMATOLOGY Basophils 0.6 0.0 - 1.0 09/06 Normal [facility] HEMATOLOGY Monocytes 6.9 2.0 - 12.0 09/06 Normal [facility] HEMATOLOGY Eosinophils 2.0 0.0 - 4.0 09/06 Normal [facility] HEMATOLOGY Segs 55.8 45.0 - 09/06 Normal [facility] 75.0 [facility] HEMATOLOGY Lymphocytes 34.7 20.0 - 09/06 Normal [facility] 40.0 [facility] HEMATOLOGY PTT 32.2 22.9 - 09/06 Normal <sup>10</sup> [facility] 35.8 Interpretive Medical Data: [facility] Therapeutic Range: 57 - 92 Seconds HEMATOLOGY PT 13.3 12.0 - 09/06 Normal [facility] 14.7 [facility] HEMATOLOGY INR 1.01 0.85 - 09/06 Normal <sup>8</sup>[place] 1. nterpretive Medical Data: Center RECOMMENDED RANGES FOR PROTIME INR: 2.0-3.0 for most medical and surgical thromboemboli c states. 2.5-3.5 for artificial heart valves and recurrent embolism. INR SHOULD BE USED ONLY FOR PATIENTS ON STABLE ANTICOAGULANT THERAPY. HEMATOLOGY Hct 27.5 36.0 - 09/06 LOW [place] 48.0 /2011 [facility] HEMATOLOGY RBC 3.34 4.20 - 09/06 [facility] 5.40 /2011 [facility] HEMATOLOGY Hgb 9.7 12.0 - 09/06 LOW [facility] 16.0 /2011 [facility] HEMATOLOGY WBC 5.0 3.7 - 10.4 09/06 Normal [facility] HEMATOLOGY MPV 9.2 7.4 - 10.4 09/06 Normal [facility] HEMATOLOGY Platelet 240 133 - 450 09/06 Normal [facility] HEMATOLOGY RDW 14.3 11.5 - 09/06 [facility] 14.5 /2011 [facility] HEMATOLOGY MCHC 35.2 32.0 - 09/06 [facility] 36.0 /2011 [facility] HEMATOLOGY MCH 28.9 27.0 - 09/06 [facility] 31.0 /2011 [facility] HEMATOLOGY MCV 82.1 81.0 - 09/06 [facility] 99.0 /2011 [facility] CHEMISTRY Magnesium 2.1 1.8 - 2.4 09/02 [facility] Lvl [facility] Microbiolo Culture: 09/01 [facility] [place] Aspirate/Bod [facility] Fluid/Tissue Microbiolo Culture: 09/01 [facility] [place] Anaerobic [facility] CHEMISTRY Temp [place] 37.0 08/31 NA [facility] CHEMISTRY O2 Sat [place] 27.0 40.0 - 08/31 [facility] 70.0 [facility] CHEMISTRY pCO2 [place] 47 38 - 52 08/31 Normal [facility] CHEMISTRY pH [place] 7.37 7.28 - 08/31 [facility] 7.42 /2011 [facility] CHEMISTRY BE [place] 1 -2-2 - 2 08/31 Normal [facility] CHEMISTRY HCO3 [place] 27.2 22.0 - 08/31 HI [facility] 26.0 [facility] CHEMISTRY pO2 [place] 19 20 - 49 08/31 LOW [facility] Microbiolo Culture: 08/31 [facility] [place] Blood /2011 [facility] [place] [facility] Microbiolo Culture: 08/31 [facility] [place] Wound/Absces /2011 Medical s w/Gram Center Stain CHEMISTRY Lactic Acid 1.0 0.5 - 2.2 08/31 Normal [facility] CHEMISTRY U Preg Negative Negative 08/31 Normal [facility] (09/01/2011 07:20:00) Md dical Center URINALYSIS UA Sq Epi Occasional /LPF Few 08/31 Normal [facility] (09/01/2011 07:20:00) Md dical Center URINALYSIS UA Leuk Est Negative Negative 08/31 [place] (09/01/[place] 07:20:00) Md dical Center URINALYSIS UA Nitrite Negative Negative 08/31 Normal [facility] (09/01/2011 07:20:00) Md dical Center URINALYSIS UA 0.2 0.1 - 1.0 08/31 Normal [facility] Urobilinogen /2011 Medical Center URINALYSIS UA Blood Negative Negative 08/31 Normal [facility] (09/01/2011 07:20:00) Md dical Center URINALYSIS UA Ketones >=80 mg/dL Negative 08/31 ABN [facility] *ABN* /2011 Medical (09/01/2011 07:20:00) Ce nter URINALYSIS UA Protein Negative Negative 08/31 Normal [facility] (09/01/2011 07:20:00) Md dical Center URINALYSIS UA pH 6.0 5.0 - 8.0 08/31 Normal [facility] URINALYSIS UA Bili Negative Negative 08/31 Normal [facility] (09/01/2011 07:20:00) Md dical Center URINALYSIS UA Glucose >=1000 mg/dL Negative 08/31 ABN [place] *ABN* /2011 Medical (09/01/2011 07:20:00) Ce nter URINALYSIS UA Spec Grav 1.035 <=1.030 08/31 [facility] URINALYSIS UA Turbidity Clear Clear 08/31 Normal [facility] (09/01/2011 07:20:00) Me dical Center URINALYSIS UA Color Yellow Yellow 08/31 NA [place] *NA* /2011 Medical (09/01/2011 07:20:00) Ce nter CHEMISTRY Lactic Acid 2.8 0.5 - 2.2 08/31 HI [facility] CHEMISTRY Magnesium 1.5 1.8 - 2.4 08/31 LOW [facility] HEMATOLOGY Polychrom Slight None Seen 08/31 Normal [facility] (09/01/2011 02:47:00) /2011 [facility] Anisocyte 1+ None Seen 08/31 ABN [facility] *ABN Medical (09/01/2011 02:47:00) Ce nter HEMATOLOGY Large Plt Slight None [facility]en 08/31 [facility] ([facility]/2011 02:47:00) Ce nter HEMATOLOGY Tear Cell Occasional 08/31 NA [facility] HEMATOLOGY Elliptocyte Slight None Seen 08/31 [facility] [place] * Medical (09/01/2011 02:47:00) Ce nter BEDSIDE Comment1 Notify 08/22 NA [facility] GLUCOSE RN/MD Medical TESTING Center BEDSIDE Gluc POC 134 65 - 110 08/22 [place] <sup>1</sup>I [facility] GLUCOSE [facility] nterpretive Medical TESTING Data: [place] Upper Reportable Limit: 200 mg/dL. BEDSIDE Gluc POC 182 65 - 110 08/22 [place] <sup>2</sup>I [facility] GLUCOSE [facility] nterpretive Medical TESTING Data: [place] Upper Reportable Limit: 200 mg/dL. BEDSIDE Comment1 Notify 08/22 [facility] GLUCOSE RN/MD [facility] [place] TESTING Center CHEMISTRY Phosphorus 3.0 2.5 - 4.5 08/22 Normal [facility] CHEMISTRY Magnesium 1.8 1.8 - 2.4 08/22 Normal [facility] CHEMISTRY Chloride Lvl 107 95 - 109 08/22 Normal [facility] CHEMISTRY Potassium 3.0 3.5 - 5.1 08/22 CRIT <sup>4</sup>R [place] esult Medical Comment: Center Critical Result(s) called to annie genao at 08/23/2011 5:18 by tac. Read back OK. CHEMISTRY Sodium Lvl 141 135 - 145 08/22 Normal [facility] CHEMISTRY Creatinine 0.6 0.5 - 1.4 08/22 Normal [facility] CHEMISTRY CO2 23 24 - 32 03 LOW [facility] CHEMISTRY Calcium Lvl 7.3 8.5 - 10.5 04 [place] [facility] CHEMISTRY Glucose Lvl 136 03 NA <sup>5</sup>I [place] nterpretive Medical Data: Center Reference Ranges : 0 - 7 days : 41 - 90 mg/dL 7 days - 150 yrs : 70 - 99 mg/dL (fasting), based on the clinical recommendatio ns of the [employer]. CHEMISTRY AGAP 14.0 10.0 - 03/04 Normal [place] 20.0 [facility] CHEMISTRY BUN 5 7 - 22 03/04 LOW [facility] HEMATOLOGY Segs 69.6 45.0 - 03/04 Normal [place] 75.0 [facility] HEMATOLOGY Lymphocytes 21.5 20.0 - 03/04 Normal [place] 40.0 [facility] HEMATOLOGY Monocytes 7.6 2.0 - 12.0 03/ Normal [facility] HEMATOLOGY Eosinophils 1.0 0.0 - 4.0 03/ [place] [facility] HEMATOLOGY Basophils 0.3 0.0 - 1.0 03/ Normal [facility] HEMATOLOGY Segs-Bands # 4.8 1.5 - 8.1 03/ Normal [facility] HEMATOLOGY Eosinophils 0.1 0.0 - 0.5 03/ [place] [facility] HEMATOLOGY Lymphocytes 1.5 1.0 - 5.5 03/ [place] [facility] HEMATOLOGY Monocytes # 0.5 0.0 - 0.8 03/ [place] [facility] HEMATOLOGY Basophils # 0.0 0.0 - 0.2 03/ [place] [facility] HEMATOLOGY MPV 11.0 7.4 - 10.4 03/ HI Medical [facility] HEMATOLOGY Platelet 161 133 - 450 03/ Normal [facility] HEMATOLOGY MCH 29.6 27.0 - 03/04 Normal [place] 31.0 [facility] HEMATOLOGY MCHC 35.4 32.0 - 03/04 Normal [place] 36.0 [facility] HEMATOLOGY RDW 14.1 11.5 - 03/04 Normal [place] 14.5 Medical [facility] HEMATOLOGY WBC 6.8 3.7 - 10.4 03/ Normal [facility] HEMATOLOGY MCV 83.5 81.0 - 03 Normal [facility] 99.0 /2011 [facility] HEMATOLOGY RBC 4.44 4.20 - 03 Normal [facility] 5.40 /2011 [facility] HEMATOLOGY Hgb 13.1 12.0 - 08/22 Normal [facility] 16.0 /2011 [facility] HEMATOLOGY Hct 37.1 36.0 - 08/22 Normal [facility] 48.0 /2011 Medical Center BEDSIDE Comment1 Notify 08/22 NA [facility] GLUCOSE RN/MD /2011 Medical TESTING Center BEDSIDE Gluc POC 332 65 - 110 08/22 [place] <sup>3</sup>I [facility] GLUCOSE [place] /2011 nterpretive Medical TESTING Data: Center Upper Reportable Limit: 200 mg/dL. CHEMISTRY Phosphorus 2.5 2.5 - 4.5 08/21 Normal [facility] CHEMISTRY Glucose Lvl 201 08/21 NA <sup>6</sup>I [place] nterpretive Medical Data: Center Reference Ranges : 0 - 7 days : 41 - 90 mg/dL 7 days - 150 yrs : 70 - 99 mg/dL (fasting), based on the clinical recommendatio ns of the [employer]. CHEMISTRY BUN 7 7 - 22 08/21 Normal [facility] CHEMISTRY CO2 19 24 - 32 08/21 [facility] CHEMISTRY Creatinine 0.3 0.5 - 1.4 08/21 [facility] Lvl [facility] CHEMISTRY Sodium Lvl 137 135 - 145 08/21 Normal [facility] CHEMISTRY Chloride Lvl 103 95 - 109 08/21 [facility] CHEMISTRY Potassium 3.6 3.5 - 5.1 08/21 Normal [facility] CHEMISTRY Calcium Lvl 7.9 8.5 - 10.5 08/21 [facility] CHEMISTRY AGAP 18.6 10.0 - 03 Normal [facility] 20.0 [facility] CHEMISTRY Magnesium 1.6 1.8 - 2.4 08/21 [facility] HEMATOLOGY Basophils # 0.0 0.0 - 0.2 08/21 Normal [facility] HEMATOLOGY Eosinophils 0.4 0.0 - 4.0 08/21 Normal [facility] HEMATOLOGY Basophils 0.5 0.0 - 1.0 03/03 Normal [facility] HEMATOLOGY Segs-Bands # 5.9 1.5 - 8.1 03/ Normal [facility] /2011 Medical Center HEMATOLOGY Lymphocytes 1.2 1.0 - 5.5 03/ [place] # /2011 [facility] HEMATOLOGY Monocytes # 0.5 0.0 - 0.8 03/ [place] /[place] [facility] HEMATOLOGY Eosinophils 0.0 0.0 - 0.5 03/ [place] # /2011 [facility] HEMATOLOGY Segs 76.9 45.0 - 03/ HI [place] 75.0 /2011 Medical Center HEMATOLOGY Lymphocytes 15.9 20.0 - 03 LOW [place] 40.0 /2011 Medical Center HEMATOLOGY Monocytes 6.3 2.0 - 12.0 03/ Normal [facility] HEMATOLOGY MCV 82.8 81.0 - 08/21 Normal [place] 99.0 [facility] Center HEMATOLOGY Hct 39.7 36.0 - 08/21 Normal [place] 48.0 Medical Center HEMATOLOGY MCH 29.1 27.0 - 03 Normal [place] 31.0 /2011 [facility] HEMATOLOGY Hgb 14.0 12.0 - 03/ Normal [place] 16.0 /2011 [facility] HEMATOLOGY MCHC 35.2 32.0 - 03/ Normal [place] 36.0 /2011 [facility] HEMATOLOGY RDW 13.9 11.5 - 03/ Normal [place] 14.5 /2011 [facility] HEMATOLOGY Platelet 160 133 - 450 03/ Normal [facility] HEMATOLOGY MPV 11.9 7.4 - 10.4 03/ [place] [facility] HEMATOLOGY WBC 7.7 3.7 - 10.4 03/ Normal [facility] HEMATOLOGY RBC 4.80 4.20 - 03/ Normal [place] 5.40 /2011 [facility] CHEMISTRY Phosphorus 2.6 2.5 - 4.5 03/ Normal [facility] CHEMISTRY Magnesium 1.8 1.8 - 2.4 03/ Normal [facility] Lvl [facility] Center CHEMISTRY Potassium 3.7 3.5 - 5.1 03/ Normal [facility] Lvl Medical Center CHEMISTRY Sodium Lvl 137 135 - 145 03/ Normal [facility] Center CHEMISTRY Creatinine 0.6 0.5 - 1.4 03/ Normal [facility] Lvl [facility] CHEMISTRY BUN 16 7 - 22 03 Normal [facility] CHEMISTRY Glucose Lvl 200 08/20 NA <sup>7</sup>I [place] nterpretive Medical Data: Center Reference Ranges : 0 - 7 days : 41 - 90 mg/dL 7 days - 150 yrs : 70 - 99 mg/dL (fasting), based on the clinical recommendatio ns of the [place] [employer]. CHEMISTRY Calcium Lvl 8.3 8.5 - 10.5 08/20 [place] [facility] CHEMISTRY AGAP 19.7 10.0 - 03 Normal [place] 20.0 [facility] CHEMISTRY Chloride Lvl 99 95 - 109 08/20 Normal [facility] CHEMISTRY CO2 22 24 - 32 08/20 LOW [facility] HEMATOLOGY Platelet 172 133 - 450 08/20 Normal [facility] HEMATOLOGY MPV 12.0 7.4 - 10.4 08/20 [facility] HEMATOLOGY WBC 7.3 3.7 - 10.4 08/20 Normal [facility] HEMATOLOGY RDW 14.6 11.5 - 08/20 [facility] 14.5 /2011 [facility] HEMATOLOGY MCHC 35.0 32.0 - 03 Normal [facility] 36.0 /2011 [facility] HEMATOLOGY RBC 4.54 4.20 - 08/20 Normal [facility] 5.40 /2011 [facility] HEMATOLOGY Hct 37.6 36.0 - 08/20 Normal [facility] 48.0 [facility] HEMATOLOGY MCV 82.9 81.0 - 08/20 Normal [facility] 99.0 [facility] HEMATOLOGY MCH 29.0 27.0 - 03 Normal [facility] 31.0 /2011 [facility] HEMATOLOGY Hgb 13.2 12.0 - 03 Normal [place]sup[place]sup[place] 16[place] es[place] Medical Comment: Center rechecked, no clot seen HEMATOLOGY Elliptocyte Slight None Seen 08[place] *[place]N* /2011 Medical (08/21/2011 04:28:00) Ce nter HEMATOLOGY Polychrom Slight None Seen 08/20 Normal [facility] (08/21/2011 04:28:00) Md dical Center HEMATOLOGY Basophils # 0.0 0.0 - 0.2 03 [place] [facility] HEMATOLOGY Hypochrom Slight None Seen 08/20 Normal [facility] (08/21/2011 04:28:00) Md dical Center HEMATOLOGY Monocytes # 0.6 0.0 - 0.8 08/20 [place] [facility] HEMATOLOGY Eosinophils 0.0 0.0 - 0.5 08/20 [place] [facility] HEMATOLOGY Segs-Bands # 5.3 1.5 - 8.1 08/20 Normal [facility] HEMATOLOGY Lymphocytes 1.3 1.0 - 5.5 08/20 [place] [facility] HEMATOLOGY Basophils 0.5 0.0 - 1.0 08/20 Normal [facility] HEMATOLOGY Monocytes 8.5 2.0 - 12.0 08/20 Normal [facility] HEMATOLOGY Eosinophils 0.3 0.0 - 4.0 08/20 [place] [facility] HEMATOLOGY Lymphocytes 17.3 20.0 - 08/20 LOW [place] 40.0 [facility] Center HEMATOLOGY Segs 73.4 45.0 - 08/20 Normal [place] 75.0 Medical Center BEDSIDE Comment2 Verify 08/19 NA [facility] GLUCOSE w/Lab Medical TESTING Center CHEMISTRY S Preg Negative Negative Normal [facility] (08/19/2011 15:58:00) Md dical Center CHEMISTRY Lipase Lvl 169 73 - 393 [facility] CHEMISTRY ALT 54 0 - 65 Normal [facility] CHEMISTRY Alk Phos 110 39 - 136 Normal [facility] CHEMISTRY Bili Direct 0.1 0.0 - 0.3 Normal [facility] CHEMISTRY Bili Total 0.9 0.2 - 1.3 Normal [facility] CHEMISTRY Albumin Lvl 4.4 3.5 - 5.0 Normal [facility] CHEMISTRY Total 8.8 6.4 - 8.4 [facility] CHEMISTRY Bili 0.8 0.0 - 1.0 Normal [place] [facility] CHEMISTRY AST 36 0 - 37 Normal [facility] CHEMISTRY Globulin 4.4 2.0 - 4.0 [facility] CHEMISTRY A/G Ratio 1.0 0.7 - 1.6 Normal Medical Center URINALYSIS UA Bacteria Occasional /HPF None Seen Normal [facility] (08/19/2011 15:58:00) Me dical Center URINALYSIS UA RBC 3-5 /HPF 0 - 2 ABN [place] *ABN* Medical (08/19/2011 15:58:00) Ce nter URINALYSIS UA WBC 3 0 - 5 NA Medical Center URINALYSIS UA Mucus Few /LPF None Seen Normal [facility] (08/19/2011 15:58:00) Md dical Center URINALYSIS UA Amorph Occasional /HPF None Seen ABN [facility] *ABN* Medical (08/19/2011 15:58:00) Ce nter URINALYSIS UA 0.2 0.1 - 1.0 Normal [facility] Urobilinogen [facility] URINALYSIS UA Sq Epi Rare /LPF Few Normal [facility] (08/19/2011 15:58:00) Me dical Center URINALYSIS Micro? Performed Normal [facility] (08/19/2011 15:58:00) Me dical Center URINALYSIS UA Leuk Est Negative [place] (08[place]19/2011 15:58:00) Me dical Center URINALYSIS UA Nitrite Negative Negative Normal [facility] (08/19/2011 15:58:00) Me dical Center URINALYSIS UA pH 5.5 5.0 - 8.0 Normal Medical Center URINALYSIS UA Blood Trace Negative ABN [facility] *ABN* Medical (08/19/2011 15:58:00) Ce nter URINALYSIS UA Bili Negative Negative Normal [facility] (08/19/2011 15:58:00) Me dical Center URINALYSIS UA Ketones 80 mg/dL Negative ABN [place] *ABN* Medical (08/19/2011 15:58:00) Ce nter URINALYSIS UA Glucose >=1000 mg/dL Negative [place] *ABN* Medical (08/19/2011 15:58:00) Ce nter URINALYSIS UA Protein Negative Negative Normal [facility] (08/19/2011 15:58:00) Md dical Center URINALYSIS UA Turbidity Slight Cloudy Clear Normal [facility] (08/19/2011 15:58:00) Md dical Center URINALYSIS UA Spec Grav 1.025 <=1.030 NA Medical Center URINALYSIS UA Color Yellow Yellow Normal [facility] (08/19/2011 15:58:00) Md dical Center CHEMISTRY AST 23 0 - 37 Normal [facility] CHEMISTRY Bili Total 1.0 0.2 - 1.3 Normal [facility] CHEMISTRY Alk Phos 115 39 - 136 Normal [facility] CHEMISTRY ALT 56 0 - 65 Normal [facility] CHEMISTRY Total 9.0 6.4 - 8.4 [facility] Protein [facility] CHEMISTRY Albumin Lvl 4.8 3.5 - 5.0 Normal [facility] CHEMISTRY Globulin 4.2 2.0 - 4.0 [facility] CHEMISTRY A/G Ratio 1.1 0.7 - 1.6 Normal [facility] CHEMISTRY B/C Ratio 30 6 - 25 [facility] HEMATOLOGY RBC Morph Normal Normal [facility] (08/19/2011 15:13:00) Md dicsc Center HEMATOLOGY Large Plt Slight None Seen ABN [facility] *ABN* Medical (08/19/2011 15:13:00) Ce nter HEMATOLOGY Atypical 0.0 <=0.0 Normal [facility] Lymphs [facility] HEMATOLOGY Bands 0.0 0.0 - 11.0 Normal [facility] CHEMISTRY O2 Sat [place] 74.0 40.0 - [facility] [place] 70.0 Medical Center CHEMISTRY Temp [place] 37.0 NA Medical Center CHEMISTRY pO2 [place] 42 20 - 49 Normal [facility] CHEMISTRY HCO3 [place] 17.3 22.0 - LOW [facility] 26.0 [facility] CHEMISTRY pH [place] 7.34 7.28 - Normal [facility] 7.42 /2011 [facility] CHEMISTRY pCO2 [place] 32 38 - 52 LOW [facility] CHEMISTRY BE [place] -7 -2-2 - 2 LOW [facility] IMMUNOLOGY CDC-HIV 1/2 Negative Negative NA MARY ALICE lombardo Ab *NA* /2011 Medical (08/19/2011 14:34:00) Ce nter Pathology Reports No Data Provided for This Section Diagnostic Reports Report Value Date Source Abdomen RUQ US EXAM: US ABDOMEN LIMITED 07/26/2016 MARY ALICE lombardo Medical EXAM: Abdomen RUQ US Center DATE: 07/26/2016 7:29 AM 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 History of schizophrenia, underlying kidney disease, CHF, diabetes and hypertension. COMPARISON: CT abdomen pelvis 04/15/2013. TECHNIQUE: Multiplanar raven soha and color Doppler ultrasound of the right upper quadrant. FINDINGS: Abdominal aorta and IVC: Visible portions are unremarkable. Liver: Craniocaudal length: 21.7 cm . It previously measured 18.[address] from 04/15/2013. Echogenicity: Normal. Surface nodularity: No nodularity seen. Mass (size and location): None. Portal vein: 1.1 cm in diameter with appropriate directional flow. Bile ducts: Common bile duct diameter: 0.4 cm. Intrahepatic ducts: Normal. Pancreas: The body is unremarkable.. The head and tail a re obscured. Gallbladder: There is a smal l shadowing mobile gallstone. There is a small [...] Mass or focal lesion (size and location): None . Ascites: None. IMPRESSION: 1. Interval development of moderate hepatosplenomegaly with no focal lesions, coarsened hepatic echotexture or portal vein dilatation. 2. Cholelithiasis with gall bladder wall thickening and pericholecystic fluid may be secondary to underlying hepatocellular disease versus cholecystitis. 3. Small gallbladder wall polyp versus sludge. Chest 1view DX EXAM: XR CHEST 1 VIEW 07/23/2016 [facility] edical DATE: 07/23/2016 9:47 PM SENIOR CONTRACTS ADMINISTRATOR Cente r INDICATION: Chest pain COMPARISON: X-ray chest 1 view performed r 2015 TECHNIQUE: AP chest FINDINGS: No pulmonary o r pleural-based abnormality is identified. Pulmonary vascularity is normal. The heart size is stable. No acute bony abnormality is identified. IMPRESSION: 1. No acute radiographic abnormality of the steven st. 2. Stable mild cardiomegaly. Retroperitoneal Complete EXAM: US RENAL 06/11/2016 [facility] US DATE: 06/11/2016 6:53 AM SENIOR CONTRACTS ADMINISTRATOR [place] [address] INDICATION: Abdominal disten tion/proteinuria CT of the abdomen and pelvis with contrast April 15, 2013 ADDITIONAL INFORMATION: None. COMPARISON: None. TECHNIQUE: Multiplanar sutton scale and color Doppler ultrasound images of the [...] 1. No sonographic abnormalities seen in the kid neys. No hydronephrosis Chest 1view DX EXAM: XR CHEST 1 VIEW 06/10/2016 [facility] edical DATE: 06/10/2016 1108 hours Cent er INDICATION: Dyspnea COMPARISON: None available TECHNIQUE: AP chest FINDINGS: Lines and tubes: None. Lungs and pleura: No pulmonary or pleural based abnormality is identified. Heart and mediastinum: Promi nence of the cardiac silhouette may represent mild cardiomegaly or could be secondary to technique.. The mediastinal contours are normal. Bones: No acute bony abnormality is identified. IMPRESSION: 1. No acute cardiopulmonary abnormality. 2. Prominence of cardiac si lhouette may represent cardiomegaly or could be secondary to technique. Abdomen/Pelvis w contrast CT ABDOMEN AND PELVIS WITH CONTRAST: [address] [facility] [address] CLINICAL HISTORY: Abdominal pain, acute TECHNIQUE AND FINDINGS: Multiple contiguous transaxi al postcontrast CT images were obtained through the abdomen and pelvis. COMPARISON: 03/14/2012. CT ABDOMEN WITH CONTRAST: 1. Mild diffuse anasarca. 2. Nonspecific bowel gas pat tern with colonic fluid suggesting a diarrheal state or nonspecific colitis. The appendix is not visualized with certainty, but no pericecal inflammatory change is present. U nderdistended appropriately thick-walled stomach . 3. Normal liver, gallbladder , kidneys, adrenal glands, pancreas, spleen, abdominal aorta, heart, and lung bases. 4. Scattered subcentimeter r etroperitoneal and mesenteric lymph nodes. No lymphadenopathy, mass, fluid collection, or focal inflammatory process. CT PELVIS WITH CONTRAST: 1. Small free pelvic fluid. 2. Normal urinary bladder. 3. Normal uterus. Indetermin ate 2.5 cm low attenuation right adnexal lesion should be further evaluated with pelvic ultrasound. 4. Scattered subcentimeter in shortest axis bila teral inguinal lymph nodes. 5. No acute fracture, dislocation, or focal osse ous lesion is appreciated. SL:17 Consultation Notes No Data Provided for This Section Discharge Summaries No Data Provided for This Section History and Physicals No Data Provided for This Section Vital Signs Vital Sign Value Date Comments Source Systolic (mm Hg) 131 07/30/2016 [facility] Diastolic (mm Hg) 86 07/30/2016 [facility] Respitory Rate 20 07/30/2016 [facility] Heart Rate 65 07/30/2016 [facility] Temperature Oral (F) 97.4 F 07/30/2016 [facility] Systolic (mm Hg) 169 07/30/2016 [facility] Diastolic (mm Hg) 99 07/30/2016 [facility] Heart Rate 66 07/30/2016 [facility] Temperature Oral (F) 97.2 F 07/30/2016 [facility] Respitory Rate 18 07/30/2016 [facility] Heart Rate 67 07/30/2016 [facility] [place] [facility] Temperature Oral (F) 97.0 F 07/30/2016 [facility] Respitory Rate 16 07/30/2016 [facility] Systolic (mm Hg) 122 07/30/2016 [facility] dical Center Diastolic (mm Hg) 80 07/30/2016 [facility] edical Center Weight 92.273 07/24/2016 [facility] BMI Calculated 36.04 07/24/2016 [facility] Height 160.02 cm 07/24/2016 [facility] Respitory Rate 20 06/15/2016 [facility] Systolic (mm Hg) 169 06/15/2016 [facility] dical Center Diastolic (mm Hg) 90 06/15/2016 [facility] edical Center Respitory Rate 16 06/15/2016 [facility] Center Systolic (mm Hg) 151 06/15/2016 [facility] dical Center Diastolic (mm Hg) 73 06/15/2016 [facility] edical Center Respitory Rate 22 06/15/2016 [facility] Systolic (mm Hg) 176 06/15/2016 [facility] dical Center Diastolic (mm Hg) 95 06/15/2016 [facility] Center Temperature Oral (F) 97.1 F 06/14/2016 [facility] Temperature Oral (F) 97.1 F 06/14/2016 [facility] Temperature Oral (F) 96.8 F 06/12/2016 [facility] Weight 103.182 06/11/2016 [facility] Height 160.02 cm 06/11/2016 [facility] BMI Calculated 40.3 06/11/2016 [facility] Heart Rate 82 06/11/2016 [facility] Heart Rate 81 06/11/2016 [facility] Heart Rate 82 06/10/2016 [facility] Weight 86.364 06/10/2016 [facility] BMI Calculated 33.73 06/10/2016 [facility] Height 160.02 cm 06/10/2016 [facility] Temperature Oral (F) 98.0 F 06/26/2014 [facility] Systolic (mm Hg) 111 06/26/2014 [facility] dical Center Heart Rate 104 06/26/2014 [facility] [place] Diastolic (mm Hg) 70 06/26/2014 [facility] Center Respitory Rate 18 06/26/2014 [facility] Systolic (mm Hg) 109 06/26/2014 [facility] dical Center Diastolic (mm Hg) 66 06/26/2014 [facility] Respitory Rate 18 06/26/2014 [facility] Temperature Oral (F) 98.0 F 06/26/2014 [facility] Temperature Oral (F) 98.2 F 06/26/2014 [facility] Respitory Rate 21 06/26/2014 [facility] Systolic (mm Hg) 106 06/26/2014 [facility] dical Center Diastolic (mm Hg) 65 06/26/2014 [facility] Heart Rate 118 06/26/2014 [facility] [place] Heart Rate 113 06/26/2014 [facility] Height 154.94 cm 06/26/2014 [facility] [place] Weight 75 06/26/2014 [facility] BMI Calculated 31.24 06/26/2014 [facility] Respitory Rate 18 04/15/2013 [facility] Diastolic (mm Hg) 89 04/15/[address] [facility] Rate 81 04/15/2013 [facility] Systolic (mm Hg) 149 04/15/2013 [facility] Temperature Oral (F) 98.7 F 04/15/2013 [facility] Resp[facility] Rate 18 04/15/2013 [facility] Diastolic (mm Hg) 87 04/15/[address] Systolic (mm Hg) 145 04/15/2013 [facility] t Temperature Oral (F) 98.2 F 04/15/2013 [facility] Heart Rate 88 04/15/2013 [facility] Height 160.02 cm 04/15/2013 [facility] Weight 63.636 04/15/2013 [facility] Temperature Oral (F) 98.6 F 04/15/2013 [facility] Respitory Rate 18 04/15/2013 [facility] Heart Rate 85 04/15/2013 [facility] Diastolic (mm Hg) 107 04/15/[address] Systolic (mm Hg) 172 04/15/2013 [facility] Weight 58.636 03/14/2012 [facility] Systolic (mm Hg) 138 12/01/2011 [facility] dical Center Respitory Rate 18 12/01/2011 [facility] Heart Rate 90 12/01/2011 [facility] Center Diastolic (mm Hg) 80 12/01/2011 [facility] Center Temperature Oral (F) 99.6 F 12/01/[place] [facility] Diastolic (mm Hg) 106 11/30/2011 [facility] edical Center Heart Rate 96 11/30/2011 [facility] Center Respitory Rate 18 11/30/2011 [facility] Center Systolic (mm Hg) 187 11/30/2011 [facility] dical Center Temperature Oral (F) 99.8 F 11/30/2011 [facility] Respitory Rate 20 11/30/2011 [facility]i [facility] Center Systolic (mm Hg) 178 11/30/2011 [facility] dical Center Diastolic (mm Hg) 104 11/30/2011 [facility] edical Center Heart Rate 102 11/30/2011 [facility] Temperature Oral (F) 99.8 F 11/30/2011 [facility] Weight 56.818 11/29/2011 [place] [facility] Height 157.48 cm 11/29/2011 [place] [facility] Weight 57.273 11/28/2011 [place] [facility] Weight 66.364 09/18/2011 [place] [facility] Height 154.94 cm 09/18/2011 [facility] Heart Rate 75 09/09/2011 [facility] Systolic (mm Hg) 115 09/09/2011 [facility] dical Center Diastolic (mm Hg) 69 09/09/2011 [facility] edical Center Respitory Rate 18 09/09/2011 [facility] Temperature Oral (F) 97.5 F 09/09/2011 [place] [facility] Diastolic (mm Hg) 68 09/09/2011 [facility] edical Center Heart Rate 66 09/09/2011 [facility] Temperature Oral (F) 98.6 F 09/09/[place] [facility] Resp[place] Rate 20 09/09/2011 [place] [facility] Systolic (mm Hg) 118 09/09/2011 [facility] dical Center Respitory Rate 20 09/09/2011 [place] [facility] Diastolic (mm Hg) 71 09/09/2011 [facility] edical Center Systolic (mm Hg) 123 09/09/2011 [facility] dical Center Heart Rate 67 09/09/2011 [facility] Temperature Oral (F) 98.7 F 09/09/2011 [facility] Weight 68.182 09/01/2011 [facility] Height 154.94 cm 09/01/2011 [facility] Height 154.94 cm 09/01/2011 [facility] Weight 68.182 09/01/2011 [facility] Respitory Rate 20 08/23/2011 [facility] Heart Rate 93 08/23/2011 [facility] Systolic (mm Hg) 136 08/23/2011 [facility] dical Center Diastolic (mm Hg) 82 08/23/2011 [facility] ed[facility] Center Temperature Oral (F) 97.7 F 08/23/2011 [facility] Heart Rate 101 08/23/2011 [facility] Temperature Oral (F) 98.2 F 08/23/2011 [facility] Diastolic (mm Hg) 105 08/23/2011 [facility] edical Center Systolic (mm Hg) 172 08/23/2011 [facility] dical Center Respitory Rate 20 08/23/2011 [facility] Center Systolic (mm Hg) 158 08/23/2011 [facility] dical Center Diastolic (mm Hg) 98 08/23/2011 [facility] edical Center Temperature Oral (F) 98.3 F 08/23/2011 [facility] Heart Rate 95 08/23/2011 [facility] Center Respitory Rate 20 08/22/2011 [facility] Center Height 154.94 cm 08/20/2011 [facility] Weight 67.273 08/20/2011 [facility] Height 154.94 cm 08/19/2011 [facility] Weight 67.273 08/19/2011 [facility] Encounters Location Location Encounter Encounter Reason Attending ADM DC Stat us Source Details Type Number For Provider Date Date Visit [facility] Inpatient [id number] DKNaun HENRIQUEZ 08/22 Active Medical 0 AHMED /2011 [facility] Inpatient [id number] [place] 08/31 09/08 Active Medical 1 ABSCESS/ OMIDVAR /2011 [facility] CEMIA Center [facility] Emergency [id number] CASA 09/17 09/17 Discha [facility] Medical 2 BUBLEWICZ /2011 ed [facility] OU [id number] N/V OSMAR 11/27 11/29 Active Medical 3 INABILIT GUNNAR /2011 [facility] PO Emergency [id number] HUNG HERNANDEZ 03/14 03/14 Discha rg [facility] ed [facility] Emergency [id number] ABD PAIN OMAIRA 04/14 04/15 Active [facility] 7 MARRY /2012 [facility] EC [id number] Atul 06/26 06/26 [facility] Emergency 8 Ostermayer /2014 [facility] Inpatient [id number] Joe 06/10 06/15 Vin 9 Franck /2015 [facility] Inpatient [id number] Danaeja Cha 07/24 07/30 Vin 0 /2016 [facility] Preadmit [id number] NAUSEA, CASA Active M [facility] 8 VOMITING WOLLNER [facility] Outpatient [id number] GASTROPE NON Canc [facility] Medical 6 RIS PHYSICIAN [facility] Outpatient [id number] GASTROPE NON Canc [facility] Medical [address] [facility] PHYSICIAN [facility] Procedures Procedure Code Date Perfomer Comments Source Emergency [id number] 04/15/2013 [facility] department visit for the evaluation and management of a patient, which requires these 3 kamara components within the constraints imposed by the urgency of the patient's clinical condition and/or mental status: A comprehensive history; A comprehensi Injection or 99.29 04/15/2013 [facility] Infusion of Other Therapeutic or Prophylactic Substance Intravenous 39633 04/15/2013 [facility] infusion, hydration; each additional hour (List separately in addition to code for primary procedure) Therapeutic, 27235 04/15/2013 [facility] prophylactic, or diagnostic injection (specify substance or drug); each additional sequential intravenous push of a new substance/drug (List separately in addition to code for primary procedure) Therapeutic, 06953 04/15/2013 [facility] prophylactic, or diagnostic injection (specify substance or drug); intravenous push, single or initial substance/drug section [id number] [facility] Tubal ligation [id number] [facility] Assessment and Plan Assessment and Plan Date Source Extracted from:Title: Hospitalist Progress Note 07/30/2016 [facility] Author: Luna Jamison MD [place] Date: 07/30/16 Assessment/Plan 1.Acute on chronic kidney failure: pre-renal from overdiures is - SANJUANA on ckd stage III--> Cr is back to baseline -She will likely have to be somewhat azotemic to stay euvole yola. -Improving with hold holding diuretics a nd gentle hydration over the hospitalization - her oral diuretic was restarted yesterday with no issues - ARB is on hold and can perhaps be restarted at discharge 2.Transaminitis -Hepatosplenomegaly notedearlier this admission. -Given accompanyingthrombocytopenia would recommend ou tpatient workup for this. -HIV and hepatitis panel negative while here. -Statin is on hold. 3.Thrombocytopenia: improving -Stable on this admission although decreased from prior. -Recommend outpatient workup for this. 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 Site Date Elbow Wound 09/01/2011 Isolation Required: CONTACT Before isolation precautions may be disc ontinued for this hospital visit, the following protocol [...] discontinued. Patient can only be cleared from isolati on for this visit. If readmitted, patient must be isolated and screened for MRSA again. Consult Infection Control for suggested regimens for decolonization of p atients with MRSA as well as for any que stions. We can be reached at [phone]. Extracted from:Title: History and Physical Author: Danae Cha DO Date: 07/24/16 Assessment/Plan 35 year old female 1.Acute respiratory failure secondary to Acute congestive heart f ailure. Stable on nasal cannula at 3L. Will improve with diuresis. Ordered: Admit/Condition 2.Acute combined systolic (congestive) and diastolic (congestive) heart failure Start IV lasix. Continue to monitor f or clinical improvement. Stable at this time. Recent ECHO mentioned above. Ordered: Admit/Condition 3.Acute on chronic kidney failure Hold ARB. Avoid nephrotoxins if possi ble. Continue to monitor for improvement. Baseline Cr is~2.0 Ordered: Admit/Condition 4.Troponin level elevated Secondary to demand ischemia from con gestive heart failure. Trend troponins. EKG unremarkable at this time. Ordered: Admit/Condition Admit/Condition 5.Cigarette nicotine dependence Can have nicotinepatch if needed. MAy have underlying COPD. Will need formal PFTs. Continue with duoneb treatments. Ordered: Admit/Condition 6.History of hypertension Continue with metoprolol. Hold ARB secondary toAKI on CKD . 7.History of diabetes mellitus Continue with lantus. ISS with covera ge. Blood glucose stable at this time. Continue with gabapentin. 8.History of bipolar disorder History of schizophreinia and anxiety as well. Contine with zoloft and buproprion. Orders: aspirin 81 mg tablet, chewable, 81 mg, 1 tab, Route: PO, Drug form: CHEWTAB, Daily, Dosing Weight 92.273, kg, Start date: 07/24/16 9:00:00 [employer], Duration: 30 day, Stop date: 08/22/16 9:00:00 [employer] ADMINISTRATOR atorvastatin, 40 mg, 1 tab, Route: PO , Drug form: TAB, Bedtime, Dosing Weight 92.273, kg, Start date: 07/24/16 21:00:00 [employer] ADMINISTRATOR, Duration: 30 day, Stop date: 08/22/16 21:00:00 [employer]IOR [employer] ADMINISTRATOR buPROPion, 150 mg, 1 tab, Route: PO, Drug form: ERTAB, Daily, Dosing Weight 92.273, kg, Start date: 07/24/16 9:00:00 [employer] ADMINISTRATOR, Duration: 30 day, Stop date: 08/22/16 9:00:00 [employer] ADMINISTRATOR Dextrose 50% Syringe, 25 gm, 50 mL, R oute: IVP, Drug Form: INJ, Dosing Weight 92.273, kg, PRN, PRN Blood Glucose Results, Start date: 07/24/16 2:40:00 [employer] ADMINISTRATOR, Duration: 30 day, Stop date: 08/23/16 2:39:00 [employer]IOR [employer] ADMINISTRATOR Dextrose 50% Syringe, 12.5 gm, 25 mL, Route: IVP, Drug Form: INJ, Dosing Weight 92.273, kg, PRN, PRN Blood Glucose Results, Start date: 07/24/16 2:40:00 [employer] ADMINISTRATOR, Duration: 30 day, Stop date: 08/23/16 2:39:00 [employer] ADMINISTRATOR Depakote ER 500 mg oral tablet, exten ded release, 500 mg, 1 tab, Route: PO, Drug form: ERTAB, QAM, Dosing Weight 92.273, kg, Start date: 07/24/16 9:00:00 [employer] ADMINISTRATOR, Duration: 30 day, Stop date: 08/22/16 9:00:00 [employer] ADMINISTRATOR docusate, 100 mg, 1 cap, Route: PO, D rug form: CAP, BID, Dosing Weight 92.273, kg, PRN Constipation, Start date: 07/24/16 1:20:00 [employer] ADMINISTRATOR, Duration: 30 day, Stop date: 08/23/16 1:19:00 [employer]IOR [employer] ADMINISTRATOR Lasix, 40 mg, 4 mL, Route: IVP, Drug form: INJ, Q12H, Dosing Weight 92.273, kg, Start date: 07/24/16 9:00:00 [employer] ADMINISTRATOR, Duration: 30 day, Stop date: 08/22/16 21:00:00 [employer] ADMINISTRATOR gabapentin 300 mg oral capsule, 1 cap , Route: PO, Drug form: CAP, BID, Dosing Weight 92.273, kg, Start date: 07/24/16 9:00:00 [employer] ADMINISTRATOR, Duration: 30 day, Stop date: 08/22/16 17:00:00 [employer]IOR [employer] ADMINISTRATOR glucagon, 1 mg, Route: IM, Drug form: PDR/INJ, PRN, Dosing Weight 92.273, kg, PRN Blood Glucose Results, Start date: 07/24/16 2:40:00 [employer] ADMINISTRATOR, Duration: 30 day, Stop date: 08/23/16 2:39:00 [employer]IOR [employer] ADMINISTRATOR hydrALAZINE 100 mg oral tablet, 100 m g, 1 tab, Route: PO, Drug form: TAB, BID, Dosing Weight 92.273, kg, Start date: 07/24/16 9:00:00 [employer] ADMINISTRATOR, Duration: 30 day, Stop date: 08/22/16 17:00:00 [employer]IOR [employer] ADMINISTRATOR insulin aspart, 4 unit, 0.04 mL, Rout e: SUB-Q, Drug form: SOLN, TID-Before Meals, Dosing Weight 92.273, kg, PRN Blood Glucose Results, Start date: 07/24/16 2:40:00 [employer] ADMINISTRATOR, Duration: 30 day, Stop date: 08/23/16 2:39:00 [employer]IOR [employer]S ADMINISTRATOR insulin aspart, 5 unit, 0.05 mL, Rout e: SUB-Q, Drug form: SOLN, TID-Before Meals, Dosing Weight 92.273, kg, PRN Blood Glucose Results, Start date: 07/24/16 2:40:00 [employer]IOR [employer]S ADMINISTRATOR, Duration: 30 day, Stop date: 08/23/16 2:39:00 [employer]IOR [employer]S ADMINISTRATOR insulin aspart, 2 unit, 0.02 mL, Rout e: SUB-Q, Drug form: SOLN, TID-Before Meals, Dosing Weight 92.273, kg, PRN Blood Glucose Results, Start date: 07/24/16 2:40:00 [employer]IOR [employer] ADMINISTRATOR, Duration: 30 day, Stop date: 08/23/16 2:39:00 S[employer]IOR [employer]S ADMINISTRATOR insulin aspart, 3 unit, 0.03 mL, Rout e: SUB-Q, Drug form: SOLN, TID-Before Meals, Dosing Weight 92.273, kg, PRN Blood Glucose Results, Start date: 07/24/16 2:40:00 [employer]IOR [employer]S ADMINISTRATOR, Duration: 30 day, Stop date: 08/23/16 2:39:00 [employer]IOR [employer]S ADMINISTRATOR insulin aspart, 1 unit, 0.01 mL, Rout e: SUB-Q, Drug form: SOLN, TID-Before Meals, Dosing Weight 92.273, kg, PRN Blood Glucose Results, Start date: 07/24/16 2:40:00 [employer]IOR [employer]S ADMINISTRATOR, Duration: 30 day, Stop date: 08/23/16 2:39:00 S[employer]IOR [employer]S ADMINISTRATOR insulin aspart, 2 unit, 0.02 mL, Rout e: SUB-Q, Drug form: SOLN, TID-Before Meals, Dosing Weight 92.273, kg, Start date: 07/24/16 7:30:00 [employer]IOR [employer] ADMINISTRATOR, Duration: 30 day, Stop date: 08/22/16 16:30:00 S[employer]IOR [employer]S ADMINISTRATOR Lantus 100 units/mL, 40 unit, 0.4 mL, Route: SUB-Q, Drug form: SOLN, Daily, Dosing Weight 92.273, kg, Start date: 07/24/16 9:00:00 [employer]IOR [employer]S ADMINISTRATOR, Duration: 30 day, Stop date: 08/22/16 9:00:00 [employer]IOR [employer]S ADMINISTRATOR metoprolol extended release, 100 mg, 2 tab, Route: PO, Drug form: ERTAB, Daily, Start date: 07/24/16 9:00:00 [employer]IOR [employer] ADMINISTRATOR, Duration: 30 day, Stop date: 08/22/16 9:00:00 [employer]IOR [employer]S ADMINISTRATOR ondansetron, 4 mg, 2 mL, Route: IVP, Drug form: INJ, Q6H, Dosing Weight 92.273, kg, PRN Nausea and Vomiting, Start date: 07/24/16 1:20:00 [employer]IOR [employer] ADMINISTRATOR, Duration: 30 day, Stop date: 08/23/16 1:19:00 S[employer]IOR [employer]S ADMINISTRATOR Protonix, 40 mg, 1 tab, Route: PO, Dr ug form: ECTAB, Daily, Dosing Weight 92.273, kg, Start date: 07/24/16 9:00:00 [employer]IOR [employer]S ADMINISTRATOR, Duration: 30 day, Stop date: 08/22/16 9:00:00 [employer]IOR [employer]S ADMINISTRATOR Zoloft, 200 mg, 2 tab, Route: PO, Ezio g form: TAB, Daily, Dosing Weight 92.273, kg, Start date: 07/24/16 9:00:00 [employer]IOR [employer]S ADMINISTRATOR, Duration: 30 day, Stop date: 08/22/16 9:00:00 S[employer]IOR [employer]S ADMINISTRATOR Up ad monique Ambulation Basic Metabolic Panel [...] Acute Care Floor) Troponin-I Troponin-T Vital Signs [facility] hospitalist is primary. Please call [phone] for additional questions. Prophylaxis TEDs Disposition DC when medically stable. Extracted from:Title: Team A Discharge Summary 06/15/2016 [facility] Author: Gina Gomes MD Center Date: 06/15/16 Team A Discharge Summary Name: Cathi Rowley Admission Date: 06/10/16 Discharge Date: 06/15/16 Admission Diagnosis: Volume overload, SANJUANA, hypertensive urge ncy Discharge Diagnosis: Volume overload sec ondary to CHF and nephrotic syndrome, SANJUANA vs CKD, hypertension Consultants: None Hospital course: Ms. Rowley is a 35-year-old F with PMH HT N, uncontrolled Type 1 DM, bipolar disorder, schizoaffective disorder, anxiety d/o who presented to the ED with 1-2 weeks of BABCOCK, SOB, left-sided chest pain, and lower-extremity edema. In the ED she was hypoxic to 89% on RA. EKG showed NSR and cardiac enzymes were negative. BNP was found to be elevated at 1135. Labs showed Cr 1.6 from 0.8 in 2015. She was also n oted to be hypertensive with SBPs 180s-2 00s. She was admitted due to concern for acute heart failure. UA showed >300 proteinuria. Renal U/S sh owed no abnormalities, UPC showed 6.9 g proteinuria consistent with diabetic nephropathy. Her BP was controlled with an oral regimen. TTE showed EF 40-45%, RVSP 57 and she was placed on appropria te heart failure medical management. She was diuresed with significant improvement in oxygenation and edema and was discharged on PO lasix. During this admission she was noted to be wheezing which impro andrea with albuterol. She was discharged in stable [...] left iliac node. 2. Multiple ill-defined hypodense lesi ons throughout the liver consistent with metastatic lesions. 3. Intra and extrahepatic biliary dilati on, with soft tissue prominence at the level of the ampulla concerning for lesion, correlation may be obtained with MRCP/ERCP. TTE - Conclusions 1) Left ventricle is normal in cavity size with mild concent antelmo hypertrophy. The left ventricular systolic function is mildl y impaired globally with an estimated LV ejection [...] 24 Hr Tmax: 97.6F (36.44c) at 06/15 00:0 0 Vital Signs are the last 5 in the past 48 hours. General: AAOx3, NAD HEENT: NC/AT, EOMI, PERRLA Neck: Supple, no LAD, no JVD Cardiac: RRR, no m/r/g Respiratory: scattered crackles, occasional wheezes, no w/r/ r Abdomen: Soft, NT, ND, no organomegaly Extremities: trace lower extremity edema, no cyanosis/clubbi ng Neurologic: no focal deficits, strength 5/5 throughout Discharge Condition: Discharge Medications: Prescribed albuterol: 2 puff, INHALATION, PRN, for 30 day, u se as needed for shortness of breath or whee zing, PRN: as needed for wheezing, 8 gm, 0 Refill(s). aspirin: 81 mg, 1 tab, PO, Daily, for 30 day, 30 tab, 0 Refill(s). atorvastatin: 40 mg, 1 tab, PO, Bedtime, 30 tab, 0 Refill(s). furosemide: 80 mg, 2 tab, PO, BID, for 30 d ay, 120 tab, 0 Refill(s). hydrALAZINE: 100 mg, 1 tab, PO, BID, 60 tab, 0 Re fill(s). hydrOXYzine: 50 mg, 1 cap, PO, TID, for 30 day, 90 cap, 0 Refill(s). insulin glargine: 40 unit, SUB-Q, Daily, 10 mL, 0 Refill(s). losartan: 25 mg, 1 tab, PO, Daily, for 30 day, 30 tab, 0 Refill(s). metoprolol: 100 mg, 1 tab, PO, Daily, 30 tab, 0 R efill(s). Documented buPROPion: 150 mg, 1 tab, PO, Daily, 0 Refill(s). divalproex sodium: 500 mg, 1 tab, PO, QAM, AND 2 TAB AT BEDTIME, 0 Refill(s). gabapentin: 1 CAP PO BID AND 1 CAP AT BEDTIME, 0 Refill(s). paliperidone: IM, qMonth, 0 Refill(s). pantoprazole: 40 mg, 1 tab, PO, Daily, 0 Refill(s ). sertraline: 200 mg, 2 tab, PO, Daily, 0 Refill(s) . Home Diet: Low carbohydrate, low sodium diet Discharge Activity: As tolerated Discharge Instructions: Please notify your physician if any of the following occur: Bleeding, Fever, Nausea, Pain, Shortness of breath, Signs of infection, Swelling Pending Labs/Procedures: None Items needing to be addressed during PCP follow up: DM , HTN, and CHF management Follow Up Appts: Follow Up With [facility] , Call for appointment, faby severino: 2 Weeks Gina Gomes MD PGY-2, Internal Medicine ATTENDING NOTE: I saw and examined this medically comple x patient, reviewed the labs and radiographic data, and agree with this note. Joe Juárez MD, FACP, FASN, FCCM Extracted from:Title: Team A Progress Note * Author: Gina oGmes MD Date: 06/14/16 Patient: CATHI ROWLEY Age: [...] All Problems (Selected) Hypertension / SNOMED CT 86732035 / Confirmed Hypokalemia / SNOMED CT 84516985 / Confirmed Hypomagnesemia / ICD-9-CM 275.2 / Confirmed MRSA / SNOMED CT 978255821 / Confirmed Problem added by Discern Expert. 09/01/11 - Elbow wound Nausea and vomiting / SNOMED CT 07937813 / Confirmed Objective Meds Scheduled Meds (15):aspirin (aspirin 81 mg tablet, chewable), atorvastatin, buPROPion (Wellbutrin XL), divalproex sodium (Depakote 500 mg oral enteric coated tablet), divalproex sodium, furosemide, constance pentin (gabapentin 300 mg oral capsule), heparin (heparin 5000 units/mL injectable solution), hydrALAZINE (hydrALAZINE 50 mg oral tablet), hydrOXYzine (hydrOXYzine pamoate), insulin glargine (Lantus 100 units/mL), lactulose, losartan, metopro lol (metoprolol extended release), sertraline (Zoloft) Unscheduled Meds: None PRN Meds (10):Dextrose 50% in Water IV ( Dextrose 50% Syringe), Dextrose 50% in Water IV (Dextrose 50% Syringe), albuterol-ipratropium (DuoNeb inhalation solution), glucagon, hydrALAZINE, insulin aspart, insulin aspart, insulin aspart, insulin aspart, insulin asp art One Time Meds (1):(Completed) magnesium oxide Continuous Infusions: None I&O Input/Output Record In Out Bal 06/14 24hr Tot 38 1800 -1762 06/13 24hr Tot 730 2700 -1970 VS/Measurements Vital Signs (last 24 hrs) Last Charted _ Temp Axillary 96.8 DegF (JUN 14 16:25) Heart Rate Apical 73 bpm (JUN 14 15:00) Resp Rate 20 BRMIN (JUN 14 15:00) SBP H 149mmHg (JUN 14 15:00) DBP H 92mmHg (JUN 14 15:00) SpO2 98 % (JUN 14:) General: Alert and oriented, No acute distress. Eye: Extraocular movements are intact, Normal conjunctiva. HENT: Normocephalic, Normal hearing. Neck: Supple, Non-tender, No jugular venous distention. Respiratory: Respirations are non-labored, coarse breath so unds, rhonchi. Cardiovascular: Normal rate, Regular rhythm. Gastrointestinal: Soft, Non-tender, Normal bowel sounds. Integumentary: Intact, No pallor, No rash. Psychiatric: Cooperative, Appropriate mood and affect. Review / Management Results review: Labs (Last four charted values) WBC 5.0 (JUN 14) 5.7 (JUN 13) 5.3 (JUN 12) 4.8 (JUN 11) Hgb L 9.4 (JUN 14 ) L 9.7 (JUN 13) L 9.0 (JUN 12) L 8.7 (JUN 11) Hct L 28.5 (MAY 22) L 29.4 (JUN 13) L 27.7 (JUN 12) L 27.0 (JUN 11) Plt 183 [...] 12) 104 (JUN 11) Cr H 2.00 (MAY 22) H 1.63 (JUN 13) H 1.63 (JUN 12) H 1.58 (JUN 11) BUN H 37 (JUN 14) H 37 (JUN 13) H 34 (JUN 12) H 31 (JUN 11) Glucose Random H 119 (JUN 14 ) H 173 (JUN 13) H 101 (JUN 12) H 300 (JUN 11) Mg 2.0 (JUN 14) L 1.7 (JUN 13) 1.9 (JUN 12) 2.0 (JUN 11) Phos H 4.8 (JUN 14 ) 4.2 (JUN 13) 4.2 (JUN 12) 4.1 (JUN 11) Ca 8.7 (JUN 14) 8.5 (JUN 13) L 8.3 (JUN 12) L 8.3 (JUN 11) PT 14.0 (JUN 11) INR 1.06 (JUN 11) PTT H 36.4 (JUN 11) Troponin <0.02 (JUN 10) <0.02 (MAY 22) CK MB 2.9 (JUN 10) Total CK 159 (JUN 10) . Impression and Plan 35 yo female with a PMH signif icant for HTN, diabetes mellitus type 1, bipolar disorder I, schizoaffective disorder, and anxiety who presents to the ED with a 1 week history of worsening dyspn ea on exertion, wheezing, shortness of b reath, left-sided chest pain, and lower extremity edema. [...] cardiorenal in nature or from elevated blood pres sure - Urine protein/Cr ratio of 5.4 - [...] home regimen of gabapentin 300mg TID for neuropat hic pain #Bipolar disorder I: - Hx of [...] NOTE: I saw and examined this medically comple x patient on 06-14-2016, reviewed the labs and radiographic data, and agree with this note. 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 Site Date Elbow 09/01/2011 Isolation Required: CONTACT Before isolation precautions may be disc ontinued for this hospital visit, the following protocol [...] discontinued. Patient can only be cleared from isolati on for this visit. If readmitted, patient must be isolated and screened for MRSA again. Consult Infection Control for suggested regimens for decolonization of p atients with MRSA as well as for any que stions. We can be reached at [phone]. Extracted from:Title: Medicine Team A History and Physical Author: Silverio Robles MD Date: 06/10/16 Medicine Team A History and Physical Note: Patient Room: ED01 - , PENDING SALE TO [facility] CATHI ROWLEY 35y (: 1980) F Attending: Joe Juárez MD [facility] ne: Service: Nephrology CHIEF COMPLAINT: Shortness of breath, lower extremity edema HISTORY OF PRESENT ILLNESS: 35 yo female with a PMH signif icant for HTN, diabetes mellitus type 1, bipolar disorder I, schizoaffective disorder, and anxiety who presents to the ED with a 1 week history of worsening dyspn ea on exertion, wheezing, shortness of b reath, left-sided chest pain, and lower extremity edema. Patient mentions that the wheezing started about a week ago and she has been sleeping on the couch at 45 degree angle for the last past week; ly ing supine causes difficulty breathing. She has also [...] the ED. PAST MEDICAL HISTORY: HTN, diabetes jose david itus type 1, bipolar disorder I, schizoaffective disorder, and anxiety PAST SURGICAL HISTORY: x2, tub al ligation bilaterally, R elbow infection with I&D SOCIAL HISTORY: Smokes about 3 cigarette s a day, previously about 1 1/2 ppd (started at age 13); no alcohol use, denies illicit drug use. 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 #Volume overload: - Possible acute CHFor possible proteinuria - Patient has dyspnea on exertion, unabl e to lie supine, sleeps at 45 degree angle, short of breath after 1 flgiht of stairs - Presents of lower extremity edema 2+, pitting pedal edema that started last night - Lungs with crackles and ronchi present bilaterally, SPO2 o f 89% on room air - Currently on [...] cardiorenal in nature or from elevated blood pres sure - Will follow-up urine protein/Cr ratio - Will continue to monitor #Hypertensive urgency: - Elevated BP at the ED of 180/84 which subsequently increas ed to 212/93 - Started on metoprolol 100mg [...] 40units daily for now and adjust as need ed - Will have Aspart low dose SSI - Will follow-up with HbA1c - Diabetic foot ulcerations located on p lantar surface of great toes bilaterally - Glove and stocking distribution of neuropathy - Continue home regimen og gabapentin 300mg TID for neuropat hic pain #Bipolar disorder I: - Hx of mood disorder - Currently on Depakote 500mg TID - Continue zoloft 200mg daily, welbutrin 50mg daily - Will continue to monitor mood for any changes #Anxiety: - Will start home regiment of Hydroxyzine 50mg TID Diet: Diabetic Diet DVT Prophylaxis: Heparin SubQ Code: Full DISPO: Pending further work-up of shortn ess of breath, lower extremity edema and proteinuria Silverio Robles MD PGY-1 ATTENDING NOTE: I saw and examined this medically comple x patient, reviewed the labs and radiographic data, and agree with this note. Joe Juárez MD, FACP, FASN, FCCM Plan of Care No Data Provided for This Section Social History Social History Date Source Social History TypeResponse 06/11/2016 [facility] Substance Abuse Use: None. 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
--- OUTSIDE RECORDS SUMMARY | 2020-03-05 09:14 | XMS REPORT | Continuity of Care Document ---
:1980 Author Organization [facility] t Address [address] [place] [address] Care Team Providers Name Role Phone Sharpless Primary Care Physician Joaquin Valdez MD Attending Clinician Chivo Attending Clinician Unavailable Chivo Attending Clinician Unavailable HAWA BHAKTA Attending Clinician Unavailable Yaquelin Attending Clinician Yuriy Juárez Attending Clinician Cem Valdez Attending Clinician Chivo Admitting Clinician Unavailable HAWA BHAKTA Admitting Clinician Unavailable Phu Cha Admitting Clinician Yuriy Juárez Admitting Clinician Problems Condition Condition Condition Status Onset Resolution Last Treating Co mments Source Name Details Category Date Date Treatment Clinician Date NEW Diagnosis Active 2018-07-26 Mem oria EVALUATION 07-12 09:39:00 l NEW 00:00: Vin EVALUATION 00 Active 07/12/2018 [facility] Liver Liver Disease Active [facility] failure, failure, 7-16 [facility] acute acute 00:00: [address] SANJUANA (acute SANJUANA (acute Disease Active [facility] kidney kidney 7-16 [facility] injury) injury) 00:00: Medical 00 Center CKD CKD Disease Active [facility] (chronic (chronic 7-16 [facility] - kidney kidney 00:00: Medical disease) disease) 00 Center Acute Acute Disease Active [facility] encephalop encephalop 7-16 [facility]i k[facility] - athy athy 00:00: Medical 00 [place] Ulcer of Ulcer of Disease [facility] toe [facility] toe of -16 [facility] left foot left foot 00:00: [facility] 00 [place] Peripheral Peripheral Disease Active [facility] neuropathy neuropathy 7-16 Pati kes - 00:00: Medical 00 [place] Hyperglyce Hyperglyce Disease Active [facility] 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 16 Pati kes - type 2 type 2 00:00: Medical diabetes diabetes 00 Center mellitus mellitus Gastropare Gastropare Disease Active [facility] sis due to sis due to 16 Pati kes - DM DM 00:00: Medical 00 [place] Cyclic Cyclic Disease Active [facility] vomiting vomiting 16 [facility] - syndrome syndrome 00:00: Medica l 00 Center Anxiety Anxiety Disease Active [facility] -16 [facility] - 00:00: Medical 00 [place] Bipolar Bipolar Disease Active [facility] disorder disorder 16 [facility] - 00:00: Medical 00 [place] Hypertensi Hypertensi Disease Active [facility] ve ve -16 [facility] - emergency emergency 00:00: [facility] 00 [place] CONGESTION Diagnosis Active 2016-07-24 Memoria AMD 2-02 01:49:00 l DIARRHEA 00:00: [place] CONGESTION 00 AMD DIARRHEA Active 07/23/2016 [facility] ACUTE RESP Diagnosis Active 2016-09-09 Memoria FAILURE 2-02 09:11:00 l ACUTE 00:00: Vin RESP 00 FAILURE Active 07/23/2016 [facility] SOB/SWELLI Diagnosis Active 2015-062016-06-10 Memoria NG 2- 15:48:00 l 00:00: Vin SOB/SWELLI 00 NG Active 6 [facility] CHF/RENAL Diagnosis Active 2015-062016-06-24 Memoria DISEASE 2- 15:35:00 l 00:00: Vin CHF/RENAL 00 DISEASE Active 06/10/2016 [facility] ABDOMINAL Diagnosis Active 2014-06-26 Memoria PAIN, 1- 05:44:00 l SEIZURES 00:00: [place] ABDOMINAL 00 PAIN, SEIZURES Active 06/26/2013 [facility] ABD PAIN Diagnosis Active 2012-062013-04-19 M emoria 0-25 21:51:00 l ABD PAIN 19:00: Jake n 00 Active 04/14/2013 [facility] GASTROPERI Diagnosis Active 2012-09-13 Memoria SIS 2- 15:17:00 l 00:00: [place] GASTROPERI 00 SIS Active 08/02/2012 [facility] ABDOMINAL Diagnosis Active 2012-03-14 Memoria PAIN 03-14 16:56:00 l 14:00: Vin ABDOMINAL 00 PAIN Active 03/14/2012 [facility] NAUSEA, Diagnosis Active 2012-03-14 Me moria VOMITING 03-14 13:25:00 l NAUSEA, 08:00: [place] VOMITING 00 Active 03/14/2012 [facility] VOMITTING Diagnosis Active 2011-11-28 Memoria 11-27 16:28:00 l 00:00: Vin VOMITTING 00 Active 11/28/2011 [facility] N/V Diagnosis Active 2011-12-08 Mem oria INABILITY 11-27 11:14:00 l TO N/V 00:00: [place] TOLERATE INABILITY 00 PO TO TOLERATE PO Active 2 [facility] VOMITTING, Diagnosis Active 2011-09-18 Memoria HIGH BLOOD 09-17 09:45:00 l SUGAR 00:00: Vin VOMITTING, 00 HIGH BLOOD SUGAR Active 09/18/2011 [facility] MRSA Problem Active 2012-03-16 Memor ia - 09:11:30 l MRSA 00:00: [place] 00 Active 09/01/2011 Problem 03/16/2012 - Elbow [id number] emily added by Discern Expert. [facility] [place] Methicilli Problem Active 2016-08-02 M emoria n 3-13 02:46:22 l resistant 00:00: [place] Staphyloco Methicilli 00 ccus n aureus resistant (organism) Staphyloco ccus aureus (organism) Active 09/01/2011 Problem 08/02/2016 09/01/11 - Elbow woundProbl em added by Discern Expert. [facility] ELBOW Diagnosis Active 2011-09-10 Mem oria ABSCESS/HY - 16:26:00 l PERGLYCEMI ELBOW 00:00: Nidia nn A ABSCESS/HY 00 PERGLYCEMI A Active 08/31/2011 [facility] VOMITING, Diagnosis Active 2011-09-01 Memoria BLOOD 08-30 03:19:00 l SUGAR 00:00: Vin READINGS VOMITING, 00 HIGH BLOOD SUGAR READINGS HIGH Active 08/31/2011 [facility] Hypokalemi Problem Active 2012-03-16 M emoria a 08-22 09:11:30 l 00:00: Vin Hypokalemi 00 a Active 08/23/2011 Problem 03/16/2012 [facility] VOMITING Diagnosis Active 2011-08-19 M emoria 16:21:00 l VOMITING 00:00: Jake n 00 Active 08/19/2011 [facility] DKA Diagnosis Active 2011-08-24 Mem oria 11:27:00 l DKA 00:00: Vin 00 Active 08/19/2011 [facility] Final: Problem 2016-08-02 Memor ia Acute 02:46:22 l respirator Final: Herm naeem y failure, Acute unspecifie respirator d whether y failure, with unspecifie hypoxia or d whether hypercapni with a hypoxia or hypercapni a 08/02/2016 [facility] Hypoglycem Problem Inactiv 2013-04-22 Memoria ia e 04:46:33 l (disorder) Jake n Hypoglycem ia (disorder) Inactive Problem 04/22/2013 [facility] Hypoglycem Problem Inactiv 2012-03-16 Memoria ia e 09:11:30 l Vin Hypoglycem ia Inactive Problem 03/16/2012 [facility] Diabetes Problem Resolve 2016-08-02 Me moria mellitus d 02:46:22 l (disorder) Diabetes He rmann mellitus (disorder) Resolved Problem 08/02/2016 [facility] Gastropare Problem Resolve 2016-08-02 Memoria sis d 02:46:22 l (disorder) Jake n Gastropare sis (disorder) Resolved Problem 08/02/2016 [facility] Hypertensi Problem Resolve 2016-08-02 Memoria ve d 02:46:22 l disorder, Vin systemic Hypertensi arterial ve (disorder) disorder, systemic arterial (disorder) Resolved Problem 08/02/2016 [facility] Psychiatri Problem Resolve 2016-08-02 Memoria c d 02:46:22 l behavioral Jake n disability Psychiatri (finding) c behavioral disability (finding) Resolved Problem 08/02/2016 [facility] Seizure Problem Resolve 2016-08-02 Mem oria (finding) d 02:46:22 l Seizure [place] (finding) Resolved Problem 08/02/2016 [facility] Hypomagnes Problem Active 2013-04-22 M emoria emia 04:46:33 l [place] Hypomagnes emia Active Problem 04/22/2013 [facility] Hypertensi Problem Active 2012-03-16 M emoria on 09:11:30 l [place] Hypertensi on Active Problem 2 [facility] Nausea and Problem Active 2012-03-16 M emoria vomiting 09:11:30 l Nausea [place] and vomiting Active Problem 03/16/2012 [facility] DMI Diagnosis Active 2011-08-24 Mem oria KETOACD 11:27:00 l UNCONTROLD DMI Jake n KETOACD UNCONTROLD Active [facility] OTHER Diagnosis Active 2011-09-10 Mem oria GENERAL 16:26:00 l SYMPTOMS OTHER [place] GENERAL SYMPTOMS Active [facility] HEART Diagnosis Active 2016-06-24 Mem oria FAILURE, 15:35:00 l UNSPECIFIE HEART Nidia nn D FAILURE, UNSPECIFIE D Active [facility] ACUTE Diagnosis Active 2016-09-09 Mem oria RESPIRATOR 09:11:00 l Y FAILURE, ACUTE Nidia nn UNSP W RESPIRATOR HYPOXI Y FAILURE, UNSP W HYPOXI Active [facility] Discharge Problem 2014-06-28 2014-06-28 Memoria Diagnosis: 1- 16:34:37 16:34:37 l Gastropare 06:00: Jake gonzalez sis Discharge 00 Diagnosis: Gastropare sis 06/26/2014 06/28/2014 [facility] History of Past Illness Condition Condition Condition Status Onset Resolution Last Treating Co mments Source Name Details Category Date Date Treatment Clinician Date Nausea and Problem Resolve 2016-08-02 2016-08-02 Memoria vomiting d 6-10 02:46:22 02:46:22 l (disorder) Nausea 00:00: Herm naeem and 00 vomiting (disorder) Resolved 11/29/2011 Problem 08/02/2016 [facility] Hypokalemi Problem Resolve 2016-08-02 2016-08-02 Memoria a d 3-04 02:46:22 02:46:22 l (disorder) 00:00: Jake n Hypokalemi 00 a (disorder) Resolved 08/23/2011 Problem 08/02/2016 [facility] Disorder Problem Resolve 2016-08-02 2016-08-02 Memoria of d 3-04 02:46:22 02:46:22 l magnesium Disorder 00:00: Her braden metabolism of 00 (disorder) magnesium metabolism (disorder) Resolved 08/23/2011 Problem 08/02/2016 [facility] Hyperglyce Problem Resolve 2016-08-02 2016-08-02 Memoria maryam d - 02:46:22 02:46:22 l (disorder) 00:00: Jake n Hyperglyce 00 maryam (disorder) Resolved 08/20/2011 Problem 08/02/2016 [facility] Ketoacidos Problem Resolve 2016-08-02 2016-08-02 Memoria is in d 2- 02:46:22 02:46:22 l diabetes 00:00: [place] mellitus Ketoacidos 00 (disorder) is in diabetes mellitus (disorder) Resolved 08/19/2011 Problem 08/02/2016 [facility] DKA Problem Resolve 2013-04-22 2013-04-22 Memoria (diabetic d 2- 04:46:33 04:46:33 l ketoacidos DKA 00:00: Jake n es) (diabetic 00 ketoacidos es) Resolved 08/19/2011 Problem 04/22/2013 [facility] Hyperglyce Problem Inactiv 2012-03-16 2012-03-16 Memoria maryam e 3- 09:11:30 09:11:30 l 00:00: [place] Hyperglyce 00 maryam Inactive 08/20/2011 Problem 03/16/2012 [facility] Allergies, Adverse Reactions, Alerts Allergy Allergy Status Severity Reaction(s) Onset Inactive Treating Comm ents Source Name Type Date Date Clinician Zolpidem Drug Active Other (See confusion [facility] Allergy Comments) 01-03 [facility] Center Lisinopr Drug Active Other (See Unable to [facility] il Allergy Comments) 01-03 remember [facility] - 00:[facility]: Medical 00 Center Nitrofur Drug Active Anaphylaxis Liver [facility] antoin Allergy 01-03 failure [facility] - Monohyd/ 00:00: Medical M-Cryst 00 Center Penicill Drug Active Shortness Of [facility] ins Allergy Breath 01-03 [facility] - 00:[facility]: Medical 00 Center Guaifene Drug Active Other (See numbness [facility] sin Allergy Comments) 01-03 [facility] - 00:[facility]: Medical 00 Center codeine codeine Active Memoria l [place] penicill penicill Active Memori a ins ins l Vin Prolex Prolex Active Memoria DM DM l [place] Ambien Ambien Active Memoria l Vin lisinopr lisinopr Active Memori a il il l Vin Social History Social Habit Start Date Stop Date Quantity Comments Source Sex Assigned At [facility] Cigarettes smoked 2017-12-17 2017-12-17 [facility] - current (pack per 00:00:00 00:00:00 Medical Center day) - Reported Cigarette 2017-12-17 2017-12-17 [facility] - pack-years 00:00:00 00:00:00 [facility] Tobacco Comment 2017-01-03 2017-01-03 patient stated [facility] - 00:00:00 00:00:00 she stopped [address] month ago. History of tobacco 2016-12-[address] [facility] - use 00:00:00 [facility] Social History 2016-06-11 2016-06-11 [facility] fatou 04:38:12 04:38:12 Smoking Status Start Date Stop Date Source Former smoker 2017-12-17 00:00:00 2017-12-17 00:00:00 [facility] Medications Ordered Filled Start Stop Current Ordering Indication Dosage Frequency Signature Comments Components Source Medication Medication Date Date Medication? Clinician (SIG) Name Name insulin Yes 5U QD Inject [address] [facility] [address] glargine 7-20 Units [facility] - (LANTUS) 00:00: subcutaneo Med ical 100 unit/mL 00 usly every Ce nter injection morning Use as directed . sertraline Yes anxiousness QD Take by [facility] (ZOLOFT) 7-16 associated mouth Luke s - 100 MG 07:36: with daily. Medical tablet 29 depression Center medroxyPROG Yes Inject [facility] ESTERone 7-16 intramuscu [facility] - (DEPO-PROVE 07:36: larly Medic al RA) 150 29 every 3 Center mg/mL (three) injection months. meclizine 2016- Yes 12.5mg Take 12.[address] (ANTIVERT) 7-16 mg by [facility] - 25 MG 07:36: mouth 3 Medical tablet 28 (three) Center times daily as needed. ondansetron 2016- Yes 4mg Take [address] (ZOFRAN) 4 7-16 by mouth [facility] - MG tablet 07:36: every 6 Medic al 27 (six) Center hours as needed for Nausea. traMADol Yes 50mg Take [address] [facility] (ULTRAM) 50 7-16 by mouth Luke s - mg tablet 07:36: every 6 Medic al 27 (six) Center hours as needed for Pain. pantoprazol 2017 Yes 40mg QD Take [address] [facility] e 7-16 by mouth [facility] - (PROTONIX) 07:36: daily. Medic al 40 MG 27 Center tablet amLODIPine 2017 Yes 10mg QD Take [address] (NORVASC) 5 7-16 by mouth Luke s - MG tablet 07:36: daily. Medica l 27 Center hydrALAZINE 20170 Yes 100mg Q.[id number] Take [address] (APRESOLINE 7-16 [id number] mg by L ukes - ) 100 MG 07:36: 3D mouth 3 Medica l tablet 27 (three) Center times daily. magnesium 2017-0 Yes 400mg QD Take [address] oxide 7-16 mg by [facility] - (MAG-OX) 07:36: mouth Medical 400 mg 27 daily. Center tablet metoclopram 20170 Yes 10mg Q.[id number] Take [address] gadiel HCl -16 [id number] by mouth 3 [facility] - (REGLAN) 10 07:36: 3D (three) Med ical MG tablet 27 times Center daily. divalproex Yes bipolar 500mg QD Take [address] [facility] (DEPAKOTE) 7-16 depression mg by Pati kes - 500 MG EC 02:31: mouth Medical tablet 10 daily. Center Furosemide Yes 40 mg = 1 Me moria 40 MG Oral 2-09 tab, PO, l Tablet 15:07: Daily, # Vin 00 30 tab, 0 Refill(s), Pharmacy: [id number] Bumex No 0.5 mg, Memoria 2-09 Route: PO, l 15:00: Drug form: [place] 00 TAB, Daily, Dosing Weight 92.273, kg, Start date: 07/30/16 9:00:00 PULLING UNIT OPERATOR, Duration: 30 day, Stop date: 08/28/16 9:00:00 PULLING UNIT OPERATOR Lasix No Notes: Memoria 2-08 (Same as: l 20:05: Lasix) [place] 00 May cause GI upset. Give with food or milk. Hydralazine No Notes: Mendoza janice 2-08 (Same as: l 06:05: Apresoline ) Push over 5 minutes sodium 2016- No 1,000 mL, Memori a chloride 2-05 Rate: 125 l 0.9% 1000 18:26: ml/hr, Jake n ml INJ 00 Infuse 1,000 mL over: 8 hr, Route: IV, Dosing Weight 92.273 kg, Total Volume: 1,000, Start date: 07/26/16 12:26:00 PULLING UNIT OPERATOR, Duration: 30 day, Stop date: 08/25/16 12:25:00 PULLING UNIT OPERATOR Sodium 2016- No 500 mL, Memoria Chloride 2-05 500 ml/hr, l 0.154 13:30: Infuse [place] MEQ/ML 00 Over: 1 Injectable hr, Route: Solution IV, 500, Drug form: INJ, ONCE, Priority: STAT, Dosing Weight 92.273 kg, Start date: 07/26/16 7:30:00 PULLING UNIT OPERATOR, Duration: 1 doses or times, Stop date: 07/26/16 7:30:00 PULLING UNIT OPERATOR Insulin No 60 Memoria regular 2-04 units) l 08:39: WASTE: F/P [place] 00 - Black; E - Municipal Trash Bin Stable for 28 days at room temperatur e Expires in days from ____Date Insulin, No Notes: Memoria Aspart, 2-04 Roll in l Human 07:31: palms of Vin 00 hands gently; Do not shake vigorously . (Same as: NovoLOG) "single patient use only" WASTE: F/P - Black; E - Municipal Trash Bin Stable for 28 days at room temperatur e. Expires in days from ____Date Insulin, No Notes: Memoria Aspart, 2-04 Roll in l Human 05:42: palms of [place] 00 hands gently; Do not shake vigorously . (Same as: NovoLOG) "single patient use only" WASTE: F/P - Black; E - Municipal Trash Bin Stable for 28 days at room temperatur e. Expires in days from ____Date Insulin, No Notes: Memoria Aspart, 2-04 Roll in l Human 03:28: palms of [place] 00 hands gently; Do not shake vigorously . (Same as: NovoLOG) "single patient use only" WASTE: F/P - Black; E - Municipal Trash Bin Stable for 28 days at room temperatur e. Expires in days from ____Date atorvastati No Notes: Mendoza janice n 2-04 (Same as: l 03:00: Lipitor) [place] 00 divalproex No Notes: Memor ia sodium 2-04 (Same as: l 03:00: Depakote [place] 00 ER) Once daily dosing; indicated for migraines. Divalproe x sodium extended-r elease tab. Do not chew or crush. "Do Not Crush" Lasix No Notes: Memoria 2-03 (Same as: l 22:00: Lasix) Vin 00 MEDICATION WASTE Product Size: 40 mg Product Wasted: ___ mg Tylenol No Notes: Max Mendoza janice 2-03 acetaminop l 21:52: hen = 4000mg/day (4 gm/day). (Same as: Tylenol) Bupropion No 150 mg, 1 Mem oria 2-03 tab, l 15:00: Route: PO, Vin 00 Drug form: ERTAB, Daily, Dosing Weight 92.273, kg, Start date: 07/24/16 9:00:00 PULLING UNIT OPERATOR, Duration: 30 day, Stop date: 08/22/16 9:00:00 PULLING UNIT OPERATOR 24 HR No Notes: Memoria Divalproex 2-03 (Same as: l Sodium 500 15:00: Depakote Her braden MG Extended 00 ER) Release Tablet [Depakote] gabapentin No Notes: Memor ia 300 MG Oral 2-03 (Same as: l Capsule 15:00: Neurontin) Aspirin 81 No Notes: Memor ia MG Chewable 2-03 Take with l Tablet 15:00: food. Lasix No Notes: Memoria 2-03 (Same as: l 15:00: Lasix) MEDICATION WASTE Product Size: 40 mg Product Wasted: ___ mg Zoloft No Notes: Memoria 2-03 (Same as: l 15:00: Zoloft) Protonix No Notes: Memoria 2-03 Tablet l 15:00: should not be chewed or crushed. (Same as: Protonix) metoprolol No 100 mg, 2 Me moria extended 2-03 tab, l release 15:00: Route: PO, Drug form: ERTAB, Daily, Start date: 07/24/16 9:00:00 PULLING UNIT OPERATOR, Duration: 30 day, Stop date: 08/22/16 9:00:00 PULLING UNIT OPERATOR Insulin No Notes: Memoria Glargine 2-03 Same as: l 100 UNT/ML 15:00: Lantus) Do H ermann Injectable 00 not hold Solution insulin [Lantus] without contacting prescriber WASTE: F/P - Black; E - Municipal Trash Bin Hydralazine No Notes: Mendoza janice Hydrochlori -03 (Same as: l de 100 MG 15:00: Apresoline He rmann Oral Tablet 00 ) May interfere w/enteral feedings Take With Food Ondansetron No Notes: Mendoza janice 2- (Same as: l 14:50: Zofran) [place] MEDICATION WASTE Product Size: 4 mg Product Wasted: ___ mg Morphine No Notes: Memoria 2-03 (Same l 14:50: as:MORPhin [place] 00 e Sulfate) Insulin, No Notes: Memoria Aspart, 2- Roll in l Human 13:30: palms of Vin 00 hands gently; Do not shake vigorously . (Same as: NovoLOG) "single patient use only" WASTE: F/P - Black; E - Municipal Trash Bin Stable for 28 days at room temperatur e. Expires in days from ____Date Dilaudid No Notes: Memoria 2-03 Same as l 11:28: Dilaudid Vin Insulin, No Notes: Memoria Aspart, 2-03 Roll in l Human 08:40: palms of [place] 00 hands gently; Do not shake vigorously . (Same as: NovoLOG) "single patient use only" WASTE: F/P - Black; E - Municipal Trash Bin Stable for 28 days at room temperatur e. Expires in days from ____Date Glucagon No 1 mg, Memoria 2-03 Route: IM, l 08:40: Drug form: Vin 00 PDR/INJ, PRN, Dosing Weight 92.273, kg, PRN Blood Glucose Results, Start date: 07/24/16 2:40:00 PULLING UNIT OPERATOR, Duration: 30 day, Stop date: 08/23/16 2:39:00 PULLING UNIT OPERATOR Dextrose No 25 gm, 50 Mendoza janice 50% Syringe 2-03 mL, Route: l 08:40: IVP, Drug Form: INJ, Dosing Weight 92.273, kg, PRN, PRN Blood Glucose Results, Start date: 07/24/16 2:40:00 PULLING UNIT OPERATOR, Duration: 30 day, Stop date: 08/23/16 2:39:00 PULLING UNIT OPERATOR Docusate No Notes: Memoria 2- (Same as: l 07:20: Colace) (Do Not Crush) Ondansetron No Notes: Mendoza janice 07-24 (Same as: l 07:20: Zofran) MEDICATION WASTE Product Size: 4 mg Product Wasted: ___ mg Lasix No Notes: Memoria 2-03 (Same as: l 06:01: Lasix) MEDICATION WASTE Product Size: 40 mg Product Wasted: ___ mg Aspirin No Notes: Memoria 2-03 Take with l 05:48: food. Prednisone No Notes: Memor ia 2- Take with l 05:02: food. Albuterol No Notes: Memori a 0.833 MG/ML 07-24 (Same as: 04:09: Duoneb) [place] Ipratropium 00 [place] 0.167 MG/ML Inhalant Solution [DuoNeb] Furosemide 2015-06 Yes 80 mg = 2 Me moria 40 MG Oral 2-26 tab, PO, l Tablet 16:34: BID, # 120 Nidia nn 00 tab, 0 Refill(s) atorvastati 2015-06 Yes 40 mg = 1 M emoria n 40 mg 2-26 tab, PO, l oral tablet 16:34: Bedtime, # Vin 00 30 tab, 0 Refill(s) Insulin 2015-06 Yes 40 unit, Memori a Glargine 2-26 SUB-Q, l 100 UNT/ML 16:34: Daily, # Her braden Injectable 00 10 mL, 0 Solution Refill(s) [Lantus] metoprolol 2015-06 Yes 100 mg = 1 M emoria 100 mg oral 2-26 tab, PO, l tablet, 16:34: Daily, # Jake n extended 00 30 tab, 0 release Refill(s) Hydralazine 2015-06 Yes 100 mg = 1 Memoria Hydrochlori 2-26 tab, PO, l de 100 MG 16:34: BID, # 60 Her braden Oral Tablet 00 tab, 0 Refill(s) 200 ACTUAT 2015-06 Yes 2 puff, Mendoza janice Albuterol 2-26 INHALATION l 0.09 16:34: , PRN, PRN [place] MG/ACTUAT 00 as needed Metered for Dose wheezing, Inhaler use as needed for shortness of breath or wheezing, # 8 gm, 0 Refill(s) Aspirin 81 2015-06 Yes 81 mg = 1 Me moria MG Chewable 2-26 tab, PO, l Tablet 16:34: Daily, # Vin 00 30 tab, 0 Refill(s) Hydroxyzine 2015-06 Yes 50 mg = 1 M emoria Hydrochlori 2-26 cap, PO, l de 50 MG 16:34: TID, X 30 Herm naeem Oral 00 day, # 90 Capsule cap, 0 Refill(s) losartan 25 2015-06 Yes 25 mg = 1 M emoria mg oral 2-26 tab, PO, l tablet 16:34: Daily, # Vin 00 30 tab, 0 Refill(s) Lasix 2015-06 No Notes: Memoria 2-26 (Same as: l 15:00: Lasix) [place] 00 May cause GI upset. Give with food or milk. Magnesium 2015-06 No Notes: Memori a Oxide 2-24 (Same as: l 13:36: Mag-Ox [place] 00 400) Magnesium oxide 771di=648o g elemental magnesium Dose=____m g magnesium oxide (___mg elemental magnesium) Magnesium 2015-06 No Notes: Memori a Oxide 2-24 (Same as: l 09:47: Mag-Ox [place] 00 400) Magnesium oxide 656yr=288l g elemental magnesium Dose=____m g magnesium oxide (___mg elemental magnesium) 24 HR 2015-06 No Notes: Memoria Nifedipine 2-24 (Same as: l 30 MG 04:33: Adalat CC, Jake n Extended 00 Procardia Release XL) Give Tablet on empty [Procardia] stomach. Take 1 hour before or 2 hours after meal; "Avoid grapefruit and grapefruit juice". Do not crush hydrALAZINE 2015-06 No Notes: Mendoza janice 50 mg oral 2-24 (Same as: l tablet 01:08: Apresoline Nidia nn 00 ) May interfere w/enteral feedings Take With Food Wellbutrin 2015-06 No Notes: Memor ia XL 2-24 (Same as: l 00:00: Wellbutrin [place] 00 XL) "Do Not Crush" Norvasc 2015-06 No Notes: Memoria 2-24 (Same as: l 00:00: Norvasc) [place] 00 Insulin 2015-06 No Notes: Memoria Glargine 2-23 Same as: l 100 UNT/ML 16:00: Lantus) Do H ermann Injectable 00 not hold Solution insulin [Lantus] without contacting prescriber WASTE: F/P - Black; E - Municipal Trash Bin 1 ML 2015-06 Yes IM, Memoria paliperidon 2-23 qMonth, 0 l e palmitate 15:48: Refill(s) H ermann 156 MG/ML 00 Prefilled Syringe [Invega] amLODIPine 2015-06 No 10 mg = 1 Me moria 10 mg oral 2-23 tab, PO, l tablet 15:35: Daily, 0 [place] 00 Refill(s) pravastatin 2015-06 No 40 mg = 1 M emoria 40 mg oral 2-23 tab, PO, l tablet 15:35: Daily, 0 [place] 00 Refill(s) Sertraline 2015-06 Yes 200 mg = 2 M emoria 100 MG Oral 2-23 tab, PO, l Tablet 15:27: Daily, 0 Vin [Zoloft] 00 Refill(s) pantoprazol 2015-06 Yes 40 mg = 1 M emoria e 40 MG 2-23 tab, PO, l Enteric 15:27: Daily, 0 Jake n Coated 00 Refill(s) Tablet [Protonix] gabapentin 2015-06 Yes 1 CAP PO Mem oria 300 MG Oral 2-23 BID AND 1 l Capsule 15:27: CAP AT Vin 00 BEDTIME, 0 Refill(s) Insulin, 2015-06 No 10 unit, Memor ia Aspart, 2-23 SUB-Q, l Human 100 15:27: TID-Meals, He rmann UNT/ML 00 # 10 mL, 0 Injectable Refill(s) Solution [NovoLog] buPROPion 2015-06 Yes 150 mg = 1 Me moria 150 mg oral 2-23 tab, PO, l tablet, 15:27: Daily, 0 Jake n extended 00 Refill(s) release Hydralazine 2015-06 No 75 mg = 3 M emoria Hydrochlori 2-23 tab, PO, l de 25 MG 15:27: Daily, 0 Nidia nn Oral Tablet 00 Refill(s) metoprolol 2015-06 No 100 mg = 1 M emoria 100 mg oral 2-23 tab, PO, l tablet, 15:27: Daily, # Jake n extended 00 30 tab, 0 release Refill(s) Insulin 2015-06 No 50 unit, Memori a Glargine 2-23 SUB-Q, l 100 UNT/ML 15:27: Daily, 0 Her braden Injectable 00 Refill(s) Solution [Lantus] Regular 2015-06 No 25 unit, Memori a Insulin, 2-23 SUB-Q, l Human 100 15:27: TID-Meals, He rmann UNT/ML 00 0 Injectable Refill(s) Solution [Humulin R] 24 HR 2015-06 Yes 500 mg = 1 Memori a Divalproex 2-23 tab, PO, l Sodium 500 15:27: QAM, AND 2 H ermann MG Extended 00 TAB AT Release BEDTIME, 0 Tablet Refill(s) [Depakote] atorvastati 2015-06 No Notes: Mendoza janice n 2-23 (Same as: l 03:00: Lipitor) Lactulose 2015-06 No Notes: Memori a 2-22 (Same l 19:00: as:Chronul ac) Furosemide 2015-06 No Notes: Memor ia 2-22 (Same as: l 15:00: Lasix) MEDICATION WASTE Product Size: 40 mg Product Wasted: ___ mg Aspirin 81 2015-06 No Notes: Memor ia MG Chewable 2-22 Take with l Tablet 15:00: food. gabapentin 2015-06 No Notes: Memor ia 300 MG Oral 2-22 (Same as: l Capsule 15:00: Neurontin) Divalproex 2015-06 No Notes: Memor ia Sodium 500 2-22 (Same as: l MG Enteric 15:00: Depakote Her braden Coated 00 ER) Once Tablet daily [Depakote] dosing; indicated for migraines. Divalproe x sodium extended-r elease tab. Do not chew or crush. 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 (Same as: NovoLOG) "single patient use only" WASTE: F/P - Black; E - Municipal Trash Bin Stable for 28 days at room temperatur e. Expires in days from ____Date heparin 2015-06 No Notes: Memoria sodium, 2-22 porcine l porcine 06:00: heparin [place] 2500 UNT/ML 00 Injectable Solution Albuterol 2015-06 No Notes: Memori a 0.833 MG/ML - (Same as: l / 03:00: Duoneb) Vin Ipratropium 00 [place] 0.167 MG/ML Inhalant Solution [DuoNeb] gabapentin 2015-06 No 300 mg, Mendoza janice 300 MG Oral 2-22 Route: PO, l Capsule 03:00: Drug form: Herm naeem 00 CAP, Q12H, Dosing Weight 86.364, kg, (CrCl 30 - 59 ml/min), Start date: 06/10/16 21:00:00 PULLING UNIT OPERATOR, Duration: 30 day, Stop date: 07/10/16 9:00:00 PULLING UNIT OPERATOR divalproex 2015-06 No Notes: Memor ia sodium 2-22 (Same as: l 03:00: Depakote Vin 00 ER) Once daily dosing; indicated for migraines. Divalproe x sodium extended-r elease tab. Do not chew or crush. "Do Not Crush" Losartan 2015-06 No Notes: Memoria 2-22 (Same as: l 03:00: Cozaar) [place] 00 Insulin, 2015-06 No Notes: Memoria Aspart, 2-22 Roll in l Human 00:50: palms of Vin 00 hands gently; Do not shake vigorously . (Same as: NovoLOG) "single patient use only" WASTE: F/P - Black; E - Municipal Trash Bin Stable for 28 days at room temperatur e. Expires in days from ____Date Dextrose 2015-06 No 12.5 gm, Memor ia 50% Syringe 2-22 25 mL, l 00:50: Route: Vin 00 IVP, Drug Form: INJ, Dosing Weight 86.364, kg, PRN, PRN Blood Glucose Results, Start date: 06/10/16 18:50:00 PULLING UNIT OPERATOR, Duration: 30 day, Stop date: 07/10/16 18:49:00 PULLING UNIT OPERATOR Glucagon 2015-06 No 1 mg, Memoria 2-22 Route: IM, l 00:50: Drug form: Vin 00 PDR/INJ, PRN, Dosing Weight 86.364, kg, PRN Blood Glucose Results, Start date: 06/10/16 18:50:00 PULLING UNIT OPERATOR, Duration: 30 day, Stop date: 07/10/16 18:49:00 PULLING UNIT OPERATOR Hydralazine 2015-06 No Notes: Mendoza janice 2-22 (Same as: l 00:36: Apresoline ) Push over 5 minutes Hydralazine 2015-06 No Notes: Mendoza janice 2-22 (Same as: l 00:34: Apresoline ) May interfere w/enteral feedings Take With Food metoprolol 2015-06 No Notes: Memor ia extended 2-22 (Same as: l release 00:08: Toprol XL) Herm May split tab, but do not crush. Hydralazine 2015-06 No 10 mg, Mendoza janice 08-12 Route: IV, l 00:06: ONCE, Dosing Weight 86.364, kg, Start date: 06/10/16 18:06:00 PULLING UNIT OPERATOR, Stop date: 06/10/16 18:06:00 PULLING UNIT OPERATOR hydrOXYzine 2015-06 No Notes: Mendoza janice pamoate 08-11 (Same as: l 23:00: Vistaril) Furosemide 2015-06 No 60 mg, Memor ia 08-11 Route: l 22:32: IVP, Drug form: INJ, ONCE, Dosing Weight 86.364, kg, Start date: 06/10/16 16:32:00 PULLING UNIT OPERATOR, Stop date: 06/10/16 16:32:00 PULLING UNIT OPERATOR Lasix 2015-06 No Notes: Memoria 08-11 (Same as: l 17:22: Lasix) MEDICATION WASTE Product Size: 40 mg Product Wasted: _0__ mg Albuterol 2015-06 No Notes: Memori a 0.833 MG/ML 08-11 (Same as: 17:22: Duoneb) Ipratropium 00 [place] 0.167 MG/ML Inhalant Solution [DuoNeb] Promethazin Yes 25 mg = 1 M emoria e 06-26 supp, MI, l Hydrochlori 14:45: Q6H, Jake gonzalez de 25 MG 00 Nausea & Rectal Vomiting, Suppository # 9 supp, [Phenergan] 0 Refill(s) Ondansetron Yes Special Mem oria 4 MG 06-26 Instructio l Disintegrat 14:25: ns: Jake gonzalez ing Tablet 00 Dissolve [Zofran] tab under tongue Metoclopram Yes 10 mg = 1 M emoria gadiel 10 MG 06 tab, PO, l Oral Tablet 14:24: QID, # 40 H ermann [Reglan] 00 tab, 0 Refill(s) Erythromyci Yes = 1 tab, Me moria n 500 MG 06 PO, Q6H, # l Enteric 14:24: 40 tab, 0 Nidia nn Coated 00 Refill(s) Tablet Hydromorpho No Notes: Mendoza janice ne 1-06 Same as: l 11:48: Dilaudid hydrOXYzine Yes 0 Memori a pamoate 1-06 Refill(s) l 11:18: Dicyclomine Yes 0 Memori a 1-06 Refill(s) l 11:18: Ondansetron Yes 0 Memori a 1-06 Refill(s) l 11:17: Benztropine Yes 0 Memori a 1-06 Refill(s) l 11:17: Clonidine Yes 0 Memoria 1-06 Refill(s) l 11:17: Zoloft Yes 0 Memoria 1-06 Refill(s) l 11:17: Metoclopram Yes 0 Memori a gadiel 1-06 Refill(s) l 11:17: Erythromyci Yes 0 Memori a n 1-06 Refill(s) l 11:16: Tramadol Yes 0 Memoria 1-06 Refill(s) l 11:16: Depakote Yes 0 Memoria 1-06 Refill(s) l 11:16: quetiapine Yes 0 Memoria 1-06 Refill(s) l 11:16: Sodium No 2,000 mL, Memori a Chloride 1-06 1,000 l 0.154 10:56: ml/hr, MEQ/ML 00 Infuse Injectable Over: 2 Solution hr, Route: IV, 2,000, Drug form: INJ, ONCE, Priority: STAT, Dosing Weight 75 kg, Start date: 06/26/14 4:56:00, Duration: 1 doses or times, Stop date: 06/26/14 4:56:00 Lorazepam No Notes: Memori a -06 (Same as: l 10:56: Ativan) Metoclopram No Notes: Mendoaz janice gadiel 06-26 (Same as: l 10:55: Reglan) Zofran ODT 2012-06 Yes Matthew Gary 4 mg, 1 Memoria 4 mg oral 0-26 Marry tab, PO, l tablet, 05:49: BID, PRN, Nidia nn disintegrat 53 Dissolve ing tab under tongue, 10 tab, Nausea and Vomiting, Substituti on AllowedDis solve tab under tongue Saline 2012-06 No Matthew Gary 5 mL, Memor ia Flush 0.9% 0-26 Marry Route: l 04:10: IVP, Drug Form: INJ, Dosing Weight 63.636, kg, PRN, PRN Line Flush, Start date: 04/14/13 23:10:00, Duration: 24 hr, Stop date: 04/15/13 23:09:00(S dayami as: BD Posiflush) morphine 2012-06 No Matthew Gary 4 mg, Mem oria Sulfate 0-26 Marry Route: l 04:10: IVP, ONCE, Dosing Weight 63.636, kg, Priority: STAT, Start date: 04/14/13 23:10:00, Stop date: 04/14/13 23:10:00 ketorolac 2012-06 No Matthew Gary 30 mg, M emoria 0-26 Marry Route: l 04:10: IVP, ONCE, Dosing Weight 63.636, kg, Priority: STAT, Start date: 04/14/13 23:10:00, Stop date: 04/14/13 23:10:00 ondansetron 2012-06 No Matthew Gary 4 mg, Memoria 0-26 Marry Route: l 04:10: IVP, ONCE, Dosing Weight 63.636, kg, Priority: STAT, Start date: 04/14/13 23:10:00, Stop date: 04/14/13 23:10:00 Sodium 2012-06 No Matthew Gary 1,000 mL, M emoria Chloride 0-26 Marry Rate: 125 l 0.9% IV 04:10: ml/hr, [place] 1,000 mL 00 Infuse over: 8 hr, Route: IV, Dosing Weight 63.636 kg, Total Volume: 1,000, Start date: 04/14/13 23:10:00, Duration: 30 day, Stop date: 05/14/13 23:09:00 morphine No Hung Murillo 5 mg, Me moria Sulfate 9-25 Marx Route: l 01:15: IVP, ONCE, Dosing Weight 58.636, kg, Priority: STAT, Start date: 03/14/12 20:15:00, Stop date: 03/14/12 20:15:00 Sodium 2011-0 No Hung Murillo 500 mL, Me moria Chloride 9-24 Marx Rate: 500 l 0.9% 23:45: ml/hr, [place] (Bolus) IV 00 Infuse 500 mL over: 1 hr, Route: IV, kg, Total Volume: 500, Bolus Dose, Priority: STAT, Start date: 03/14/12 18:45:00, Duration: 1 doses or times, Stop date: 03/14/12 19:44:00 ondansetron 2011-0 No Hung Murillo 4 mg, Memoria 9-24 Marx Route: l 22:19: IVP, ONCE, Dosing Weight 58.636, kg, Priority: STAT, Start date: 03/14/12 17:19:00, Stop date: 03/14/12 17:19:00 morphine 2011-0 No Hung Murillo 5 mg, Me moria Sulfate 9-24 Marx Route: l 22:19: IVP, ONCE, Dosing Weight 58.636, kg, Priority: STAT, Start date: 03/14/12 17:19:00, Stop date: 03/14/12 17:19:00 pantoprazol 2011-0 No Hung Murillo 40 mg, Memoria e 9-24 Marx Route: l 22:19: IVP, ONCE, Dosing Weight 58.636, kg, For IV push reconstitu te with 10 ml 0.9% sodium chloride and push over at least 3 minutes, Priority: STAT, Start date: 03/14/12 17:19:00, Stop date: 03/14/12 17:19:00 Sodium 2011-0 No Hung Murillo 500 mL, Me moria Chloride 9-24 Mrax Rate: l 0.9% 22:19: 1,000 [place] (Bolus) IV 00 ml/hr, 500 mL Infuse over: 0.5 hr, Route: IV, kg, Total Volume: 500, Bolus dose, Priority: STAT, Start date: 03/14/12 17:19:00, Duration: 1 doses or times, Stop date: 03/14/12 17:48:00 Reglan 10 2011- Yes Blake 10 mg, 1 M emoria mg oral 6-11 Deangelo tab, PO, l tablet 11:11: Brisa QID-Before H ermann 13 Meals, 120 tab, 1, 1, Substituti on Allowed insulin No Blake 10 unit, Mem oria isophane-RN PSYCH 6-11 Deangelo 0.1 mL, l H 02:00: Route: Vin SUB-Q, Drug form: INJ, Bedtime, Start date: 11/29/11 21:00:00, Duration: 30 day, Stop date: 12/28/11 21:00:00 Insulin No Blake 8 unit, Mendoza janice regular 6-11 Deangelo 0.08 mL, l 02:00: Route: Vin 00 SUB-Q, Drug form: SOLN, Bedtime, Start date: 11/29/11 21:00:00, Duration: 30 day, Stop date: 12/28/11 21:00:00 trazodone No Blake 200 mg, 2 Memoria 100 mg oral 6-11 Deangelo tab, l tablet 02:00: Route: PO, H ermann 00 Drug form: TAB, Bedtime, Start date: 11/29/11 21:00:00, Duration: 30 day, Stop date: 12/28/11 21:00:00 Geodon 2011-0 No Blake 120 mg, 3 Mem oria 6-11 Deangelo cap, l 02:00: Route: PO, Her braden 00 Drug form: CAP, Bedtime, Start date: 11/29/11 21:00:00, Duration: 30 day, Stop date: 12/28/11 21:00:00 amLODipine 0 No Blake 5 mg, 1 M emoria 6-11 Deangelo tab, l 01:11: Route: PO, Her braden 00 Drug form: TAB, ONCE, Priority: NOW, Start date: 11/29/11 20:11:00, Stop date: 11/29/11 20:11:00 morphine 2011-0 No [place] 2 mg, Memori a Sulfate 6-10 Omidvar Route: l 21:33: IVP, ONCE, Start date: 11/29/11 16:33:00, Stop date: 11/29/11 16:33:00 morphine 2011- No [place] 2 mg, 0.5 Me moria Sulfate 6-10 Omidvar mL, Route: l 21:32: IVP, Drug form: INJ, ONCE, Start date: 11/29/11 16:32:00, Stop date: 11/29/11 16:32:00 Tylenol No [place] 650 mg, 2 Mem oria 6-10 Omidvar tab, l 19:16: Route: PO, Drug form: TAB, Q4H, PRN Pain, Start date: 11/29/11 14:16:00, Duration: 30 day, Stop date: 12/29/11 14:15:00 insulin 2011- No Blake 14 unit, Mem oria isophane-RN PSYCH 6-10 Deangelo 0.14 mL, l H 14:00: Brisa Route: [place] 00 SUB-Q, Drug form: INJ, Daily, Start date: 11/29/11 9:00:00, Duration: 30 day, Stop date: 12/28/11 9:00:00 Insulin 2011- No Blake 10 unit, Mem oria regular 6-10 Deangelo 0.1 mL, l 14:00: Brisa Route: [place] 00 SUB-Q, Drug form: SOLN, Daily, Start date: 11/29/11 9:00:00, Duration: 30 day, Stop date: 12/28/11 9:00:00 Effexor XR No Blake 75 mg, 1 Memoria 6-10 Deangelo cap, l 14:00: Brisa Route: PO, Her braden 00 Drug form: ERCAP, Daily, Start date: 11/29/11 9:00:00, Duration: 30 day, Stop date: 12/28/11 9:00:00 lisinopril No Blake 40 mg, 2 Memoria 6-10 Deangelo tab, l 14:00: Brisa Route: PO, Her braden 00 Drug form: TAB, Daily, Start date: 11/29/11 9:00:00, Duration: 30 day, Stop date: 12/28/11 9:00:00 benztropine 2011-0 No Blake 1 mg, 1 Memoria 6-10 Deangelo tab, l 14:00: Brisa Route: PO, Her braden 00 Drug form: TAB, BID, Start date: 11/29/11 9:00:00, Duration: 30 day, Stop date: 12/28/11 17:00:00 amLODipine 2011-0 No Blake 5 mg, 1 M emoria 6-10 Deangelo tab, l 14:00: Brisa Route: PO, Her braden 00 Drug form: TAB, Daily, Start date: 11/29/11 9:00:00, Duration: 30 day, Stop date: 12/28/11 9:00:00 insulin 2011-0 No Blake 10 unit, Mem oria aspart 6-10 Deangelo 0.1 mL, l 06:30: Brisa Route: Vin 00 SUB-Q, Drug form: SOLN, TID-Before Meals, PRN Blood Glucose Results, Start date: 11/29/11 1:30:00, Duration: 30 day, Stop date: 12/29/11 1:29:00 Dextrose 2011-0 No Blake 25 gm, 50 M emoria 50% Syringe 6-10 Deangelo mL, Route: l 06:30: Brisa IVP, Drug Herm naeem Form: INJ, PRN, PRN Blood Glucose Results, Start date: 11/29/11 1:30:00, Duration: 30 day, Stop date: 12/29/11 1:29:00 glucagon 2011-0 No Blake 1 mg, Memor ia 6-10 Deangelo Route: IM, l 06:30: Brisa Drug form: Her braden 00 PDR/INJ, PRN, PRN Blood Glucose Results, Start date: 11/29/11 1:30:00, Duration: 30 day, Stop date: 12/29/11 1:29:00 normal 2011-0 No Blake 1,000 mL, Mem oria saline 0.9% 6-10 Deangelo Rate: 200 l IV 1,000 mL 06:29: Brisa ml/hr, Vin Infuse over: 5 hr, Route: IV, Dosing Weight 57.273 kg, Total Volume: 1,000, Start date: 11/29/11 1:29:00, Duration: 30 day, Stop date: 12/29/11 1:28:00 Saline 2012-0 No Blake 5 ml, Memoria Flush 0.9% 6-10 Deangelo Route: l 06:28: Brisa IVP, Drug Herm naeem 00 Form: INJ, PRN, PRN Line Flush, Start date: 11/29/11 1:28:00, Duration: 30 day, Stop date: 12/29/11 1:27:00 ondansetron 2011-0 No Blake 4 mg, 2 Memoria 6-10 Deangelo mL, Route: l 06:28: Brisa IVP, Drug Herm naeem 00 form: INJ, Q8H, PRN Nausea & Vomiting, Start date: 11/29/11 1:28:00, Duration: 30 day, Stop date: 12/29/11 1:27:00 Reglan 2011-0 No Blake 10 mg, 2 Mendoza janice 6-10 Deangelo mL, Route: l 06:28: Brisa IVP, Drug Herm naeem 00 form: INJ, Q6H, Priority: STAT, Start date: 11/29/11 1:28:00, Duration: 30 day, Stop date: 12/29/11 0:00:00 Protonix 2011-0 No Blake 40 mg, Mendoza janice 6-10 Deangelo Route: IV, l 06:28: Brisa Drug form: Her braden 00 INJ, ONCE, Priority: STAT, Start date: 11/29/11 1:28:00, Stop date: 11/29/11 1:28:00 metoclopram 2011-0 No Nikki 10 mg, 2 Memoria gadiel 6-10 Sarah mL, Route: l 04:01: Brown IVP, Drug [place] 00 form: INJ, ONCE, Priority: STAT, Start date: 11/28/11 23:01:00, Stop date: 11/28/11 23:01:00 Zofran 2011-0 No Nikki 4 mg, 2 Mendoza janice 6-10 Sarah mL, Route: l 02:31: Brown IVP, Drug [place] 00 form: INJ, ONCE, Priority: STAT, Start date: 11/28/11 21:31:00, Stop date: 11/28/11 21:31:00 NS (Bolus) No Arif Domenico 1,000 mL, Memoria IV 1,000 mL 11-27 Rate: l 22:48: 1,000 [place] 00 ml/hr, Infuse over: 1 hr, Route: IV, Dosing Weight 57.273 kg, Total Volume: 1,000, Start date: 11/28/11 17:48:00, Duration: 30 day, Stop date: 12/28/11 17:47:00 NS (Bolus) No Arif Domenico 1,000 mL, Memoria IV 1,000 mL 11-27 Rate: l 20:36: 1,000 Vin 00 ml/hr, Infuse over: 1 hr, Route: IV, Dosing Weight 57.273 kg, Total Volume: 1,000, Start date: 11/28/11 15:36:00, Duration: 30 day, Stop date: 12/28/11 15:35:00 Ativan No Arif Domenico 2 mg, 1 Mem oria 6-09 mL, Route: l 20:35: IVP, Drug Vin 00 form: INJ, ONCE, Priority: STAT, Start date: 11/28/11 15:35:00, Stop date: 11/28/11 15:35:00 Novolin R Yes Hughes-Jason 8 unit, M emoria 100 3-30 [place] SUB-Q, l units/mL 17:47: Eunice Q12H, 2 He rmann injectable 42 Pu vial, solution Substituti on Allowed, SOLN Novolin N Yes Hughes-Jason 10 unit, Memoria 100 3-30 [place] SUB-Q, l units/mL 17:46: Eunice Bedtime, H ermann subcutaneou 27 Pu 10 ml, s injection Substituti on Allowed, SUSP Novolin N Yes Hughes-Jason 14 unit, Memoria 100 3-30 [place] SUB-Q, l units/mL 17:44: Eunice QAM, 1 Her braden subcutaneou 37 Pu vial, s injection Substituti on Allowed, SUSP magnesium No Hughes-Jason 400 mg, 1 Memoria oxide 3-30 [place] tab, l 14:55: Route: PO, Her braden 00 Pu Drug form: TAB, ONCE, Priority: STAT, Start date: 09/18/11 9:55:00, Stop date: 09/18/11 9:55:00 Insulin 2011-0 No Hughes-Jason 8 unit, Mem oria regular 3-30 [place] 0.08 mL, l 14:22: Route: Vin 00 Pu SUB-Q, Drug form: SOLN, ONCE, Priority: STAT, Start date: 09/18/11 9:22:00, Stop date: 09/18/11 9:22:00 Lactated 2011-0 No Hughes-Jason 1,000 mL, Memoria Ringers 3-30 [place] Rate: l (Bolus) IV 14:16: Dawson 1,000 He rmann 1,000 mL 00 Pu ml/hr, Infuse over: 1 hr, Route: IV, Total Volume: 1,000, Bolus Dose, Priority: STAT, Start date: 09/18/11 9:16:00, Duration: 1 doses or times, Stop date: 09/18/11 10:15:00 Sodium 2011-0 No Hughes-Jason 1,000 mL, Me moria Chloride 3-30 [place] Rate: l 0.9% 14:06: Dawson 1,000 [place] (Bolus) IV 00 Pu ml/hr, 1000 mL Infuse over: 1 hr, Route: IV, kg, Total Volume: 1,000, Bolus Dose, Priority: STAT, Start date: 09/18/11 9:06:00, Duration: 1 doses or times, Stop date: 09/18/11 10:05:00 sulfamethox 2011- Yes Substituti Memoria azole 3-30 on Allowed l 14:04: Vin 58 Sodium 2011-0 No Hughes-Jason 1,000 mL, Me moria Chloride 3-30 [place] Rate: l 0.9% 13:56: Dawson 1,000 [place] (Bolus) IV 00 Pu ml/hr, 1000 mL Infuse over: 1 hr, Route: IV, kg, Total Volume: 1,000, Bolus Dose, Priority: STAT, Start date: 09/18/11 8:56:00, Duration: 1 doses or times, Stop date: 09/18/11 9:55:00 clindamycin No Eber L 300 mg, 2 Memoria 3-21 Anabelle cap, l 21:00: Route: PO, Vin 00 Drug form: CAP, Q8H, Start date: 09/09/11 16:00:00, Duration: 30 day, Stop date: 10/09/11 8:00:00 Colace 100 Yes Luna 100 mg, 1 Memoria mg oral 3-21 Amelia cap, PO, l capsule 18:47: Tolar BID, 60 Her braden 19 cap, Substituti on Allowed, CAP clindamycin Yes Luna 300 mg, 2 Memoria 150 mg oral 3-21 Amelia cap, PO, l capsule 18:46: Tolar Q8H, 30 Her braden 55 cap, Substituti on Allowed, CAP [place] Yes Luna 1 tab, PO, Memoria 10/325 oral - Amelia Q4H, PRN, l tablet 18:46: Tolar 30 tab, Herm naeem 36 Pain, Substituti on Allowed, Maintenanc e, TAB [place] No Hollie Donavan 1 tab, Mendoza janice 10/325 oral -21 Mahi Route: PO, l tablet 09:00: Drug Form: Nidia nn 00 TAB, Q4H, Start date: 09/09/11 4:00:00, Duration: 30 day, Stop date: 10/09/11 0:00:00 Colace 100 No [place] 100 mg, 1 Memoria mg oral 3-19 Omidvar cap, l capsule 22:00: Route: PO, Herm naeem 00 Drug form: CAP, BID, Start date: 09/07/11 17:00:00, Duration: 30 day, Stop date: 10/07/11 9:00:00 enalapril No [place] 5 mg, 1 Mem oria 3-19 Omidvar tab, l 15:30: Route: PO, [place] 00 Drug form: TAB, Daily, Start date: 09/07/11 10:30:00, Duration: 30 day, Stop date: 10/07/11 9:00:00 flumazenil No Gayle 0.2 mg, 2 Memoria 3-19 Josefina mL, Route: l 14:19: Gavin IVP, Drug Jake n 00 form: INJ, PRN, PRN Benzodiaze pine Reversal, Initial dose, Start date: 09/07/11 9:19:00, Duration: 1 day, Stop date: 09/08/11 9:18:00 naloxone 2011- No Gayle 0.04 mg, Me moria - Josefina 0.1 mL, l 14:19: Gavin Route: [place] 00 IVP, Drug form: INJ, Q2MIN, PRN Narcotic Reversal, Start date: 09/07/11 9:19:00, Duration: 8 doses or times, Stop date: Limited # of times ondansetron No Gayle 4 mg, 2 Memoria 3-19 Josefina mL, Route: l 14:19: [place] IVP, Drug Jake n 00 form: INJ, ONCE, PRN Nausea & Vomiting, Start date: 09/07/11 9:19:00 hydromorpho No Gayle 0.5 mg, Memoria ne 09-06 Josefina 0.25 mL, l 14:19: Gavin Route: Vin 00 IVP, Drug form: INJ, Q5Min, PRN Pain Score 4-6, Start date: 09/07/11 9:19:00, Duration: 5 doses or times, Stop date: Limited # of times acetaminoph No Gayle 15 mL, M emoria en-hydrocod 09-06 Josefina Route: PO, l one 325 14:19: Gavin Drug Form: He rmann mg-10 mg/15 00 SOLN, Q4H, mL oral PRN Pain solution Score 4-6, Start date: 09/07/11 9:19:00, Duration: 1 day, Stop date: 09/08/11 8:00:00 Lactated 2011-0 No [place] 1,000 mL, Me moria Ringers IV 09-06 Omidvar Rate: 125 l 1,000 mL 14:06: ml/hr, Vin 00 Infuse over: 8 hr, Route: IV, Dosing Weight 68.182 kg, Total Volume: 1,000, Start date: 09/07/11 9:06:00, Duration: 30 day, Stop date: 10/07/11 9:05:00 clindamycin No Maximo R 600 mg, Memoria 3-19 Arias Route: l 13:31: IVPB, Vin 00 ONCE, Start date: 09/07/11 8:31:00, Stop date: 09/07/11 8:31:00 normal 2011- No Yury W 1,000 mL, M emoria saline 0.9% 319 Adeline Rate: 100 l IV 1,000 mL 05:00: ml/hr, Herm naeem 00 Infuse over: 10 hr, Route: IV, Dosing Weight 68.18 kg, Total Volume: 1,000, Start date: 09/07/11 0:00:00, Duration: 30 day, Stop date: 10/06/11 23:59:00 normal 2011- No Yury W 1,000 mL, M emoria saline 0.9% 18 Adeline Rate: 100 l IV 1000 mL 13:25: ml/hr, Nidia nn 00 Infuse over: 10 hr, Route: IV, kg, Total Volume: 1,000, Start date: 09/06/11 8:25:00, Duration: 30 day, Stop date: 10/06/11 8:24:00 senna 8.6 2011- No [place] 8.6 mg, 1 M emoria mg oral 3-17 Omidvar tab, l tablet 15:00: Route: PO, Nidia nn Drug Form: TAB, BID, PRN as needed for constipati on, Start date: 09/05/11 10:00:00, Duration: 30 day, Stop date: 10/05/11 9:00:00 Colace 100 2011- No [place] 100 mg, 1 Memoria mg oral 3-17 Omidvar cap, l capsule 15:00: Route: PO, Herm naeem Drug form: CAP, BID, PRN as needed for constipati on, Start date: 09/05/11 10:00:00, Duration: 30 day, Stop date: 10/05/11 9:00:00 potassium 2011- No [place] 40 mEq, 2 M emoria chloride 3-17 Omidvar tab, l 14:11: Route: PO, Vin Drug form: ERTAB, ONCE, Start date: 09/05/11 9:11:00, Stop date: 09/05/11 9:11:00 Dulcolax 2012-0 No Charbel A 10 mg, 2 M emoria Laxative 3-17 Wong tab, l 04:00: Route: PO, [place] 00 Drug form: ECTAB, Daily, PRN Constipati on, Priority: NOW, Start date: 09/04/11 23:00:00, Duration: 30 day, Stop date: 10/04/11 22:59:00 Zofran 2012-0 No Hector 4 mg, 2 Memori a 3-16 Hissam mL, Route: l 23:11: Peg IV, Drug Jake n 00 form: INJ, Q4H, PRN as needed for nausea/vom iting, Priority: NOW, Start date: 09/04/11 18:11:00, Duration: 30 day, Stop date: 10/04/11 18:10:00 [place] 2012-0 No Mahammad 1 tab, Memori a 10/325 oral 3-16 Simeon Route: PO, l tablet 17:00: Edz Drug Form: He rmann 00 TAB, Q4H, Start date: 09/04/11 12:00:00, Duration: 30 day, Stop date: 10/04/11 8:00:00 Sodium 2012-0 No Rosalino 320 mL, Memor ia Chloride 3-16 Kavon Rate: 10 l 0.9% IV 320 15:01: ml/hr, Herm naeem mL + 00 Infuse ropivacaine over: 40 1% 800 mg + hr, Route: Q-Pump 1 ea NERVE BLOCK, Dosing Weight 68.182 kg, Total Volume: 400, Start date: 09/04/11 10:01:00, Duration: 7 day, Stop date: 09/11/11 10:00:00 ondansetron 2012-0 No Rosalino 4 mg, 2 Memoria 3-16 Kavon mL, Route: l 14:50: IVP, Drug [place] 00 form: INJ, ONCE, PRN Nausea & Vomiting, Start date: 09/04/11 9:50:00, Duration: 1 doses or times, Stop date: Limited # of times ropivacaine 2011-0 No Rosalino Dosing: Memoria 0.2% in NS 3-16 Kavon 10cc/hr, l - site 1 14:50: Route: [place] 400 mL 00 NERVE BLOCK, Start date: 09/04/11 9:50:00 400 mL, Duration: 30 day, Stop date: 10/04/11 9:49:00 naloxone No Rosalino 0.04 mg, Me moria 3-16 Kavon 0.1 mL, l 14:50: Route: [place] 00 IVP, Drug form: INJ, Q2MIN, PRN Narcotic Reversal, Start date: 09/04/11 9:50:00, Duration: 30 day, Stop date: 10/04/11 9:49:00 [place] No [place] 1 tab, Memoria 10/325 oral -16 Omidvar Route: PO, l tablet 14:49: Drug Form: Nidia nn 00 TAB, Q4H, PRN Pain, Start date: 09/04/11 9:49:00, Stop date: 10/04/11 9:48:00 labetalol No Gregory F 5 mg, Mendoza janice 3-16 Puga Route: IV, l 14:40: ONCE, [place] Start date: 09/04/11 9:40:00, Stop date: 09/04/11 9:40:00 ondansetron No Hollie 4 mg, 2 Me moria 3-16 Beck mL, Route: l 13:37: Hayden IVP, Drug Nidia nn 00 form: INJ, ONCE, PRN Nausea & Vomiting, Start date: 09/04/11 8:37:00 naloxone No Hollie 0.04 mg, Mendoza janice 3-16 Beck 0.1 mL, l 13:37: Hayden Route: [place] IVP, Drug form: INJ, Q2MIN, PRN Narcotic Reversal, Start date: 09/04/11 8:37:00, Duration: 8 doses or times, Stop date: Limited # of times meperidine No Hollie 12.5 mg, Me moria 3-16 Beck 0.5 mL, l 13:37: Hayden Route: [place] IVP, Drug form: INJ, Q30Min, PRN Other -See Comment, For shivering, Start date: 09/04/11 8:37:00, Duration: 2 doses or times, Stop date: Limited # of times flumazenil 2011- No Hollie 0.2 mg, 2 M emoria 3-16 Beck mL, Route: l 13:37: [place] IVP, Drug Nidia nn 00 form: INJ, PRN, PRN Benzodiaze pine Reversal, Initial dose, Start date: 09/04/11 8:37:00, Duration: 1 day, Stop date: 09/05/11 8:36:00 hydromorpho 2011- No Rosalino 0.5 mg, Memoria ne 3-16 Kavon 0.25 mL, l 13:37: Route: Vin 00 IVP, Drug form: INJ, Q5Min, PRN Pain Score 4-6, Start date: 09/04/11 8:37:00, Duration: 5 doses or times, Stop date: Limited # of times clindamycin No Eber L 600 mg, 4 Memoria 3-15 Anabelle mL, Route: l 16:00: IVPB, Vin [id number], Start date: 09/03/11 11:00:00, Duration: 30 day, Stop date: 10/03/11 8:00:00 potassium 2011-0 No [place] 40 mEq, 2 M emoria chloride 3-15 Omidvar tab, l 13:39: Route: PO, Vin 00 Drug form: ERTAB, ONCE, Start date: 09/03/11 8:39:00, Stop date: 09/03/11 8:39:00 [place] 5/325 2011-0 No Rosalino 1 tab, M emoria oral tablet 3-15 Kavon Route: PO, l 05:00: Drug Form: Vin 00 TAB, Q4H, Start date: 09/03/11 0:00:00, Duration: 30 day, Stop date: 10/02/11 20:00:00 Geodon 2011-0 No Eber L 120 mg, 3 Memoria 3-15 Anabelle cap, l 02:00: Route: PO, [place] Drug form: CAP, Bedtime, Start date: 09/02/11 21:00:00, Duration: 30 day, Stop date: 10/01/11 21:00:00 trazodone 2011-0 No Eber L 200 mg, 4 Memoria 100 mg oral 3-15 Anabelle tab, l tablet 02:00: Route: PO, Nidia nn Drug form: TAB, Bedtime, Start date: 09/02/11 21:00:00, Duration: 30 day, Stop date: 10/01/11 21:00:00 Effexor XR 2011- No Eber L 75 mg, 1 Memoria 3-14 Anabelle cap, l 17:00: Route: PO, [place] Drug form: ERCAP, Daily, Give qAM after today's dose., Start date: 09/02/11 12:00:00, Duration: 30 day, Stop date: 10/02/11 9:00:00 [place] 5/325 2011- No Rosalino 1 tab, M emoria oral tablet 3-14 Kavon Route: PO, l 16:25: Drug Form: Vin 00 TAB, Q4H, PRN Pain, Start date: 09/02/11 11:25:00, Duration: 30 day, Stop date: 10/02/11 11:24:00 magnesium 2011-0 No [place] 4 gm, 50 Me moria sulfate 3-14 Omidvar mL, Route: l 16:15: IVPB, Drug form: INJ, ONCE, Start date: 09/02/11 11:15:00, Stop date: 09/02/11 11:15:00 Lovenox 2011-0 No Missael 40 mg, 0.4 Mem oria 3-14 Movva mL, Route: l 14:00: SUB-Q, Vin 00 Drug form: INJ, Daily, Start date: 09/02/11 9:00:00, Duration: 30 day, Stop date: 10/01/11 9:00:00 vancomycin 2011-0 No Eber L 1 gm, Memoria 3-14 Anabelle Route: l 14:00: IVPB, Drug form: INJ, [id number], Start date: 09/02/11 9:00:00, Duration: 30 day, Stop date: 04/12/12 21:00:00 clindamycin 2011-0 No Eber L 600 mg, 4 Memoria (SCIP) 3-14 Anabelle mL, Route: l 10:00: IVPB, [place] 00 [id number], Start date: 09/02/11 5:00:00, Duration: 3 doses or times, Stop date: 09/02/11 21:00:00 clindamycin 2011-0 No Yury 600 mg, 4 Memoria (SCIP) 3-14 Silverio mL, Route: l 04:00: Connally IVPB, Vin 00 [id number], Start date: 09/01/11 23:00:00, Duration: 3 doses or times, Stop date: 09/02/11 15:00:00 insulin 2011-0 No [place] 15 unit, Mendoza janice isophane-RN PSYCH 3-14 Omidvar 0.15 mL, l H 02:00: Route: [place] 00 SUB-Q, Drug form: INJ, Q12H, Start date: 09/01/11 21:00:00, Stop date: 10/01/11 9:00:00 labetalol No Mariaelena-Corea 5 mg, Me moria 3-14 Barbra Route: l 01:07: Feliciano IVP, [place] 00 Q5Min, PRN Elevated BP, Start date: 09/01/11 20:07:00, Duration: 5 doses or times, Stop date: Limited # of times hydrALAZINE No Mariaelena-Corea 5 mg, Memoria 3-14 Barbra Route: l 01:07: Feliciano IVP, [place] 00 Q5Min, PRN Elevated BP, Start date: 09/01/11 20:07:00, Duration: 4 doses or times, Stop date: Limited # of times hydromorpho No Mariaelena-Corea 0.5 mg, Memoria ne 3-14 Barbra Route: l 01:07: Feliciano IVP, Vin 00 Q5Min, PRN Pain Score 4-6, Start date: 09/01/11 20:07:00, Duration: 5 doses or times, Stop date: Limited # of times naloxone 0 No Mariaelena-Corea 0.04 mg, Memoria 3-14 Barbra Route: l 01:07: Feliciano IVP, [place] 00 Q2MIN, PRN Narcotic Reversal, Start date: 09/01/11 20:07:00, Duration: 8 doses or times, Stop date: Limited # of times flumazenil No Mariaelena-Corea 0.2 mg, Memoria 3-14 [place] Route: l 01:07: Feliciano IVP, PRN, [place] 00 PRN Benzodiaze pine Reversal, Initial dose, Start date: 09/01/11 20:07:00, Duration: 30 day, Stop date: 10/01/11 20:06:00 ondansetron No Mariaelena-Corea 4 mg, Memoria 3-14 [place] Route: l 01:07: Feliciano IVP, ONCE, [place] 00 PRN Nausea & Vomiting, Start date: 09/01/11 20:07:00 vancomycin 2011- No Mele 1 gm, Mem oria 3-14 Gauvain Route: l 01:00: IVPB, Drug form: INJ, [id number], Start date: 09/01/11 20:00:00, Duration: 30 day, Stop date: 10/01/11 8:00:00 Lactated 2011-0 No Charbel A 1,000 mL, Memoria Ringers IV 3-14 Wong Rate: 125 l 1,000 mL 00:55: ml/hr, Infuse over: 8 hr, Route: IV, Dosing Weight 68.2 kg, Total Volume: 1,000, Start date: 09/01/11 19:55:00, Duration: 30 day, Stop date: 10/01/11 19:54:00 vancomycin 2011- No Missael 1 gm, Memor ia 3-14 Movva Route: l 00:00: IVPB, Drug form: INJ, [id number], Start date: 09/01/11 19:00:00, Duration: 30 day, Stop date: 10/01/11 7:00:00 insulin 2011-0 No Missael 6 unit, Memori a aspart 3-13 Movva 0.06 mL, l 23:23: Route: Vin 00 SUB-Q, Drug form: SOLN, TID-Before Meals, PRN Blood Glucose Results, Start date: 09/01/11 18:23:00, Duration: 30 day, Stop date: 10/01/11 18:22:00 glucagon 2012-0 No Missael 1 mg, Memoria 3-13 Movva Route: IM, l 23:23: Drug form: Vin 00 PDR/INJ, PRN, PRN Blood Glucose Results, Start date: 09/01/11 18:23:00, Duration: 30 day, Stop date: 10/01/11 18:22:00 Dextrose 2011-0 No Missael 25 gm, 50 Mem oria 50% Syringe 3-13 Movva mL, Route: l 23:23: IVP, Drug [place] Form: INJ, PRN, PRN Blood Glucose Results, Start date: 09/01/11 18:23:00, Duration: 30 day, Stop date: 10/01/11 18:22:00 morphine 2011-0 No Daja Shannan 2 mg, 1 M emoria Sulfate 3-13 Beni mL, Route: l 21:14: IVP, Drug Vin form: INJ, Q4H, PRN Severe Pain, Start date: 09/01/11 16:14:00, Stop date: 10/01/11 16:13:00 Lactated 2011-0 No Cesar 1,000 mL, Me moria Ringers IV 3-13 Manuel [place] Rate: 100 l 1,000 mL 19:03: ml/hr, [place] 00 Infuse over: 10 hr, Route: IV, Dosing Weight 68.182 kg, Total Volume: 1,000, Start date: 09/01/11 14:03:00, Duration: 30 day, Stop date: 10/01/11 14:02:00 morphine 2011-0 No [place] 4 mg, 1 Memori a Sulfate 3-13 Madden mL, Route: l 17:13: Gurinder IVP, Drug Jake n 00 form: INJ, ONCE, Start date: 09/01/11 12:13:00, Stop date: 09/01/11 12:13:00 Lactated 2011-0 No [place] 2,000 mL, Mendoza janice Ringers 3-13 [place] Rate: 100 l (Bolus) IV 15:42: Gurinder ml/hr, Her braden 2,000 mL 00 Infuse over: 20 hr, Route: IV, Dosing Weight 68.18 kg, Total Volume: 2,000, Start date: 09/01/11 10:42:00, Duration: 1 doses or times, Stop date: 09/02/11 6:41:00 Insulin 2011-0 No [place] 8 unit, Memoria regular 3-13 Madden 0.08 mL, l 15:28: Gurinder Route: Vin 00 SUB-Q, Drug form: SOLN, ONCE, Priority: STAT, Start date: 09/01/11 10:28:00, Stop date: 09/01/11 10:28:00 Sodium 2011-0 No [place] 1,000 mL, Memori a Chloride 3-13 [place] Rate: l 0.9% 14:53: Gurinder 1,000 [place] (Bolus) IV 00 ml/hr, 1,000 mL Infuse over: 1 hr, Route: IV, Dosing Weight 68.18 kg, Total Volume: 1,000, Bolus Dose, Priority: STAT, Start date: 09/01/11 9:53:00, Duration: 1 doses or times, Stop date: 09/01/11 10:52:00 morphine 2011-0 No Ju 4 mg, 1 Mem oria Sulfate 3-13 Nikki mL, Route: l 13:28: Sandeep IVP, Drug Nidia nn 00 form: INJ, ONCE, Start date: 09/01/11 8:28:00, Stop date: 09/01/11 8:28:00 clindamycin 2011-0 No Ju 600 mg, 4 Memoria 3-13 Nikki mL, Route: l 13:20: Sandeep IVPB, Drug Herm naeem 00 form: INJ, ONCE, Priority: STAT, Start date: 09/01/11 8:20:00, Stop date: 09/01/11 8:20:00 Sodium 2011-0 No Bee L 1,000 mL, M emoria Chloride 3-13 [place] Rate: l 0.9% 10:41: 1,000 [place] (Bolus) IV 00 ml/hr, 1000 mL Infuse over: 1 hr, Route: IV, Dosing Weight 68.182 kg, Total Volume: 1,000, Bolus Dose, Priority: STAT, Start date: 09/01/11 5:41:00, Duration: 1 doses or times, Stop date: 09/01/11 6:40:00 ondansetron 2011-0 No Bee L 4 mg, Memoria 3- [place] Route: l 09:06: IVP, Drug [place] 00 form: INJ, ONCE, Priority: STAT, Start date: 09/01/11 4:06:00, Stop date: 09/01/11 4:06:00 morphine 2011-0 No Bee L 4 mg, Mem oria Sulfate 3- [place] Route: l 09:06: IVP, ONCE, Vin 00 Priority: STAT, Start date: 09/01/11 4:06:00, Stop date: 09/01/11 4:06:00 Sodium 2011- No Bee L 1,000 mL, M emoria Chloride 3- [place] Rate: l 0.9% 08:42: 1,000 [place] (Bolus) IV 00 ml/hr, 1000 mL Infuse over: 1 hr, Route: IV, Dosing Weight 68.182 kg, Total Volume: 1,000, Bolus Dose, Priority: STAT, Start date: 09/01/11 3:42:00, Duration: 1 doses or times, Stop date: 09/01/11 4:41:00 Insulin 2011- No Bee L 8 unit, Me moria regular 08-31 [place] 0.08 mL, l 08:30: Route: Vin IVP, Drug form: SOLN, ONCE, Priority: STAT, Start date: 09/01/11 3:30:00, Stop date: 09/01/11 3:30:00 Sodium 2011-0 No Bee L 1,000 mL, M emoria Chloride - [place] Rate: l 0.9% 07:29: 1,000 [place] (Bolus) IV 00 ml/hr, 1,000 mL Infuse over: 1 hr, Route: IV, Dosing Weight 68.182 kg, Total Volume: 1,000, Bolus Dose, Priority: STAT, Start date: 09/01/11 2:29:00, Duration: 1 doses or times, Stop date: 09/01/11 3:28:00 potassium 2011-0 No Velásquez Noam 40 mEq, 2 Memoria chloride 3-04 Akmal tab, l 15:00: Route: PO, Vin Drug form: ERTAB, BID, Start date: 08/23/11 9:00:00, Duration: 2 doses or times, Stop date: 08/23/11 17:00:00 amLODipine Yes Velásquez Noam 5 mg, 1 Memoria 5 mg oral 3-04 Akmal tab, PO, l tablet 14:45: Daily, 30 Jake n 36 tab, 3, 3, Substituti on Allowed, TAB lisinopril Yes Velásquez Noam 40 mg, 2 Memoria 20 mg oral 3-04 Akmal tab, PO, l tablet 14:44: Daily, 60 Jake n 39 tab, 3, 3, Substituti on Allowed, TAB Novolin N Yes Velásquez Noam 18 Units, Memoria 100 3-04 Akmal SUB-Q, l units/mL 14:42: BID, 3 Vin subcutaneou 04 vial, 3, s injection 3, Substituti on Allowed, SUSP insulin Yes Velásquez Noam 5 Units, Memoria regular 3-04 Akmal SUB-Q, l human 14:40: TID, 30 Vin recombinant 10 vial, 3, 100 3, units/mL Substituti injectable on solution Allowed, before breakfast lunch and dinner, [facility] breakfast lunch and dinner potassium No Velásquez Noam 20 mEq, Memoria chloride 3-04 Akmal 100 mL, l 14:00: Route: [place] 00 IVPB, Drug form: INJ, Q2H, Start date: 08/23/11 8:00:00, Duration: 2 doses or times, Stop date: 08/23/11 10:00:00 calcium 2011-0 No Velásquez Noam 1 gm, Mem oria chloride 3-04 Akmal Route: l 13:28: IVPB, ONCE, Priority: STAT, Start date: 08/23/11 7:28:00, Stop date: 08/23/11 7:28:00 potassium 0 No Velásquez Noam 40 mEq, Memoria chloride 3-04 Akmal Route: IV, l 12:29: ONCE, Vin 00 Start date: 08/23/11 6:29:00, Stop date: 08/23/11 6:29:00 potassium 0 No Velásquez Noam 60 mEq, 3 Memoria chloride 20 3-04 Akmal tab, l mEq oral 12:27: Route: PO, Her braden tablet, 00 Drug form: extended ERTAB, release ONCE, Start date: 08/23/11 6:27:00, Stop date: 08/23/11 6:27:00 magnesium 2012-0 No Velásquez Noam 2 gm, 50 Memoria sulfate 3-04 Akmal mL, Route: l 12:26: IVPB, Drug [place] form: INJ, ONCE, Total dose = 2 gm, Start date: 08/23/11 6:26:00, Duration: 1 doses or times, Stop date: 08/23/11 6:26:00 magnesium 2011-0 No [place] 2 gm, 50 Me moria sulfate 3-03 Rodriguez mL, Route: l 16:26: Ahmed IVPB, Drug Jake n 00 form: INJ, ONCE, Total dose = 2 gm, Start date: 08/22/11 10:26:00, Duration: 1 doses or times, Stop date: 08/22/11 10:26:00 calcium 2012-0 No [place] 1,000 mg, Mem oria gluconate 3-03 Rodriguez 10 mL, l 16:25: Ahmed Route: Vin 00 IVPB, ONCE, Start date: 08/22/11 10:25:00, Stop date: 08/22/11 10:25:00 potassium 2012-0 No Velásquez Noam 40 mEq, 2 Memoria chloride 20 3-03 Akmal tab, l mEq oral 15:00: Route: PO, Her braden tablet, 00 Drug form: extended ERTAB, release Daily, Start date: 08/22/11 9:00:00, Duration: 30 day, Stop date: 08/22/11 12:00:00 magnesium 2012-0 No Velásquez Noam 2 gm, 50 Memoria sulfate 3-03 Akmal mL, Route: l 13:26: IVPB, Drug [place] 00 form: INJ, ONCE, Total dose = 2 gm, Start date: 08/22/11 7:26:00, Duration: 1 doses or times, Stop date: 08/22/11 7:26:00 Geodon 2012-0 No Yury 120 mg, 3 Mem oria 3-03 [place] cap, l 03:00: Rivero Route: PO, H erm Drug form: CAP, Bedtime, Start date: 08/21/11 21:00:00, Duration: 30 day, Stop date: 09/19/11 21:00:00 lisinopril 2012-0 No Yury 10 mg, 1 Memoria 3-02 [place] tab, l 20:06: Rivero Route: PO, H erm Drug form: TAB, ONCE, Start date: 08/21/11 14:06:00, Stop date: 08/21/11 14:06:00 potassium 2012-0 No Yury 20 mEq, Me moria chloride 3-02 [place] 100 mL, l 15:12: Rivero Route: Nidia nn 00 IVPB, Drug form: INJ, ONCE, Start date: 08/21/11 9:12:00, Stop date: 08/21/11 9:12:00 lisinopril 2011-0 No Velásquez Noam 40 mg, 2 Memoria 3-02 Akmal tab, l 15:00: Route: PO, Vin 00 Drug form: TAB, Daily, Start date: 08/21/11 9:00:00, Stop date: 09/19/11 9:00:00 hydrALAZINE 2011-0 No Yury 10 mg, 0.5 Memoria 3-02 [place] mL, Route: l 14:43: Rivero IVP, Drug He rm form: INJ, Q6H, PRN Hypertensi on, Start date: 08/21/11 8:43:00, Duration: 30 day, Stop date: 09/20/11 8:42:00 Geodon 2011-0 No Yury 60 mg, 3 Mendoza janice 3-02 [place] cap, l 03:00: Rivero Route: PO, H erm Drug form: CAP, ONCE, Start date: 08/20/11 21:00:00, Stop date: 08/20/11 21:00:00 Cogentin 2011-0 No Yury 1 mg, 1 Mem oria 3-02 [place] tab, l 03:00: Rivero Route: PO, H erm Drug form: TAB, Q12H, Start date: 08/20/11 21:00:00, Duration: 30 day, Stop date: 09/19/11 9:00:00 Phenergan 2011-0 No Yury 6.25 mg, M emoria 3-01 [place] 0.25 mL, l 21:41: Rivero Route: Nidia nn 00 IVPB, Drug form: INJ, Q6H, PRN Nausea & Vomiting, Start date: 08/20/11 15:41:00, Stop date: 09/19/11 15:40:00 Compazine 2011-0 No [place] 5 mg, 1 Mem oria 3-01 Rodriguez tab, l 20:30: Ahmed Route: PO, Jake n 00 Drug form: TAB, Q6H, PRN Nausea & Vomiting, Start date: 08/20/11 14:30:00, Duration: 30 day, Stop date: 09/19/11 14:29:00 Zofran 2011-0 No [place] 4 mg, 2 Memori a 3-01 Rodriguez mL, Route: l 17:15: Ahmed IVP, Drug Vin 00 form: INJ, Q8H, PRN Nausea, Start date: 08/20/11 11:15:00, Duration: 30 day, Stop date: 09/19/11 11:14:00 insulin 2011-0 No Yury 10 unit, Mem oria isophane-RN PSYCH 08-19 [place] Route: l H 16:00: Rivero SUB-Q, Nidia nn 00 ONCE, Start date: 08/20/11 10:00:00, Stop date: 08/20/11 10:00:00 trazodone 2011-0 Yes 200 mg, 2 Mem oria 100 mg oral 3-01 tab, PO, l tablet 15:37: Bedtime, Vin 27 90 tab, Substituti on Allowed, TAB benztropine 2011-0 Yes 1 mg, 1 Mem oria 1 mg oral 3-01 tab, PO, l tablet 15:35: BID, 60 Vin 25 tab, Substituti on Allowed, TAB Geodon 60 2011-0 Yes 120 mg, 2 Mem oria mg oral 3-01 cap, PO, l capsule 15:35: Bedtime, Jake n 12 60 cap, Substituti on Allowed, CAP insulin 2011-0 No Yury 10 unit, Mem oria isophane-RN PSYCH 3-01 [place] Route: l H 15:00: Rivero SUB-Q, Nidia nn 00 Q12H, Start date: 08/20/11 9:00:00, Duration: 30 day, Stop date: 09/18/11 21:00:00 Geodon 2011-0 No Yury 60 mg, 3 Mendoza janice 3-01 [place] cap, l 15:00: Rivero Route: PO, H erm Drug form: CAP, BID, Start date: 08/20/11 9:00:00, Duration: 30 day, Stop date: 09/18/11 17:00:00 Effexor XR 2011- No Yury 75 mg, 1 Memoria 3-01 [place] cap, l 15:00: Rivero Route: PO, H erm Drug form: ERCAP, Daily, Start date: 08/20/11 9:00:00, Duration: 30 day, Stop date: 09/18/11 9:00:00 potassium 2011- No Yury 15 mmol, 5 Memoria phosphate 3- G[place] mL, Route: l 14:30: Rivero IV, ONCE, rm Start date: 08/20/11 8:30:00, Stop date: 08/20/11 8:30:00 potassium 2011-0 No Yury 20 mEq, Me moria chloride 3-01 [place] 100 mL, l 14:00: Rivero Route: Nidia nn IVPB, Drug form: INJ, Q2H, Total dose = 80 mEq, Start date: 08/20/11 8:00:00, Duration: 4 doses or times, Stop date: 08/20/11 14:00:00 potassium 2011-0 No Yury 15 mmol, M emoria phosphate 3-01 Gato Route: l 12:47: Rivero IVPB, PRN, H PRN Abnormal Lab Result, Start date: 08/20/11 6:47:00, Duration: 30 day, Stop date: 09/19/11 7:46:00 Insulin 2011-0 No Yury 6 unit, Mendoza janice regular 3-01 [place] 0.06 mL, l 09:38: Rivero Route: Nidia nn SUB-Q, Drug form: SOLN, ONCE, Start date: 08/20/11 3:38:00, Stop date: 08/20/11 3:38:00 Insulin 2011-0 No Velásquez Noam 10 unit, Memoria regular 3- Akmal SUB-Q, l 09:28: BID, [place] 23 Substituti on Allowed insulin 2011- No 10 unit, Memori a isophane-RN PSYCH 3- SUB-Q, l H 09:26: BID, Vin 18 Substituti on Allowed NS 1,000 mL No Didier Noam 1,000 mL, Memoria 3- Akmal Rate: 150 l 09:06: ml/hr, Vin 00 Infuse over: 6.7 hr, Route: IV, Total Volume: 1,000, Start date: 08/20/11 3:06:00, Duration: 30 day, Stop date: 09/19/11 3:05:00 insulin 2011- No Yury 3 unit, Mendoza janice aspart 3-01 [place] 0.03 mL, l 09:06: Rivero Route: Nidia nn SUB-Q, Drug form: SOLN, Bedtime, PRN Blood Glucose Results, Start date: 08/20/11 3:06:00, Duration: 30 day, Stop date: 09/19/11 3:05:00 enoxaparin No Yury 40 mg, 0.4 Memoria 3- [place] mL, Route: l 09:00: Rivero SUB-Q, Nidia nn 00 Drug form: INJ, Daily, Priority: Routine, Start date: 08/20/11 3:00:00, Duration: 30 day, Stop date: 09/18/11 9:00:00 insulin 2011- No Yury 18 unit, Mem oria isophane-RN PSYCH 3-01 Gato 0.18 mL, l H 08:58: Rivero Route: Nidia nn 00 SUB-Q, Drug form: INJ, Q12H, Start date: 08/20/11 2:58:00, Stop date: 09/18/11 21:00:00 insulin 2011-0 No Yury 2 unit, Mendoza janice aspart 3-01 [place] 0.02 mL, l 08:48: Rivero Route: Nidia nn SUB-Q, Drug form: SOLN, TID-Before Meals, PRN Blood Glucose Results, Start date: 08/20/11 2:48:00, Duration: 30 day, Stop date: 09/19/11 2:47:00 glucagon 2011- No Yury 1 mg, Memor ia 08-19 [place] Route: IM, l 08:48: Rivero Drug form: H ermann 00 PDR/INJ, PRN, PRN Blood Glucose Results, Start date: 08/20/11 2:48:00, Duration: 30 day, Stop date: 09/19/11 3:47:00 Dextrose No Yury 25 gm, 50 M emoria 50% Syringe 08-19 [place] mL, Route: l 08:48: Rivero IVP, Drug He rm Form: INJ, PRN, PRN Blood Glucose Results, Start date: 08/20/11 2:48:00, Duration: 30 day, Stop date: 09/19/11 3:47:00 Insulin No Yury 3 unit, Mendoza janice regular 08-19 Gato Route: l 08:48: Rivero SUB-Q, Nidia nn 00 Bedtime, PRN Blood Glucose Results, Start date: 08/20/11 2:48:00, Duration: 30 day, Stop date: 09/19/11 2:47:00 Dextrose No Yury 25 gm, 50 M emoria 50% Syringe 08-19 Gato ml, Route: l 08:46: Rivero IVP, Drug He rmann Form: INJ, PRN, PRN Blood Glucose Results, Start date: 08/20/11 2:46:00, Duration: 30 day, Stop date: 09/19/11 3:45:00 ondansetron No Hughes-Jason 4 mg, M emoria 08-19 [place] Route: l 07:42: Dawson IVP, Drug Herm naeem 00 Pu form: INJ, ONCE, Priority: STAT, Start date: 08/20/11 1:42:00, Stop date: 08/20/11 1:42:00 GI cocktail No Hughes-Jason 30 ml, Memoria 08-19 [place] Route: PO, l 05:12: Eunice Drug Form: Her braden 00 Pu SUSP, ONCE, STAT, Start date: 08/19/11 23:12:00, Stop date: 08/19/11 23:12:00 ondansetron 2011- No Hughes-Jason 4 mg, M emoria 3 [place] Route: PO, l 05:10: Dawson Drug form: Her braden 00 Pu TABDIS, ONCE, Priority: STAT, Start date: 08/19/11 23:10:00, Stop date: 08/19/11 23:10:00 Lactated No Hughes-Jason 1,000 mL, Memoria Ringers 08-19 [place] Rate: l (Bolus) IV 05:10: Dawson 1,000 He rmann 1000 mL 00 Pu ml/hr, Infuse over: 1 hr, Route: IV, Total Volume: 1,000, [place]us Dose, Priority: STAT, Start date: 08/19/11 23:10:00, Duration: 1 doses or times, Stop date: 08/20/11 0:09:00 Insulin 2011- No Hughes-Jason 7 unit, Mem oria regular 08-19 [place] 0.07 mL, l 04:15: Route: Vin 00 Pu SUB-Q, Drug form: SOLN, ONCE, Priority: STAT, Start date: 08/19/11 22:15:00, Stop date: 08/19/11 22:15:00 Geodon 60 2011- No Yury 60 mg, 1 M emoria mg oral 2-29 [place] cap, PO, l capsule 23:24: Rivero BID, 180 [place] 43 cap, Substituti on Allowed, CAP trazodone No 300 mg, 1 Mem oria 300 mg oral 2-29 tab, PO, l tablet 23:23: Bedtime, Vin 58 15 tab, Substituti on Allowed, TAB Effexor XR Yes Yury 75 mg, 1 Memoria 75 mg oral 2-29 [place] cap, PO, l capsule, 23:22: Rivero Daily, 30 [place] extended 24 cap, release Substituti on Allowed Lactated No Yury 1,000 mL, M emoria Ringers IV 2-29 [place] Rate: 250 l 1,000 mL 23:03: Rivero ml/hr, H ermann 00 Infuse over: 4 hr, Route: IV, Total Volume: 1,000, Priority: STAT, Start date: 08/19/11 17:03:00, Duration: 30 day, Stop date: 09/18/11 17:02:00 Sodium 2011- No Yury 100 mL, Memor ia Chloride [place] Rate: l 0.9% 22:17: Rivero Titrate, Her braden (titrate) 00 Route: IV, 100 mL + Total Insulin Volume: (regular) 100 ml, Titrate IV Duration: additive 30 day, 100 unit Stop date: 09/18/11 16:16:00, Replace Every: 24 hr GI cocktail No William 40 mL, Me moria Wong Route: PO, l 22:04: Pooja Drug Form: Nidia nn 00 SUSP, ONCE, STAT, Start date: 08/19/11 16:04:00, Stop date: 08/19/11 16:04:00 Protonix No William 40 mg, Memor ia Wong Route: l 22:04: Pooja IVP, Drug Jake n 00 form: INJ, ONCE, Start date: 08/19/11 16:04:00, Stop date: 08/19/11 16:04:00 ondansetron No William 8 mg, Mem oria Wong Route: l 21:57: Pooja IVP, Drug Jake n 00 form: INJ, ONCE, Priority: STAT, Start date: 08/19/11 15:57:00, Stop date: 08/19/11 15:57:00 morphine No William 4 mg, Memori a Sulfate Wong Route: l 21:57: Pooja IVP, ONCE, Nidia nn 00 Priority: STAT, Start date: 08/19/11 15:57:00, Stop date: 08/19/11 15:57:00 Reglan No William 10 mg, Memoria Wong Route: IV, l 21:57: Pooja ONCE, [place] 00 Start date: 08/19/11 15:57:00, Stop date: 08/19/11 15:57:00 Lactated 0 No William 1,000 mL, Me moria Ringers 2-29 Wong Rate: l (Bolus) IV 21:12: Pooja 1,000 Herm naeem 1000 mL 00 ml/hr, Infuse over: 1 hr, Route: IV, Total Volume: 1,000, Bolus Dose, Priority: STAT, Start date: 08/19/11 15:12:00, Duration: 1 doses or times, Stop date: 08/19/11 16:11:00 Vital Signs Vital Name Observation Time Observation Value Comments Source Systolic (mm Hg) 2016-07-30 14:00:00 Mendoza rial [place] Diastolic (mm Hg) 2016-07-30 14:00:00 [facility] [place] Respitory Rate 2016-07-30 14:00:00 [facility] Heart Rate 2016-07-30 14:00:00 [facility] Temperature Oral (F) 2016-07-30 14:00:00 97.4 F [facility] Systolic (mm Hg) 2016-07-30 10:45:00 [facility] Diastolic (mm Hg) 2016-07-30 10:45:00 [facility] Heart Rate 2016-07-30 10:45:00 [facility] Temperature Oral (F) 2016-07-30 10:45:00 97.2 F [facility] Respitory Rate 2016-07-30 10:45:00 [facility] Heart Rate 2016-07-30 06:35:00 [facility] Temperature Oral (F) 2016-07-30 06:35:00 97.0 F [facility] Respitory Rate 2016-07-30 06:35:00 [facility] Systolic (mm Hg) 2016-07-30 06:35:00 [facility] [place] Diastolic (mm Hg) 2016-07-30 06:35:00 [facility] Weight 2016-07-24 02:13:00 [facility] [place] BMI Calculated 2016-07-24 02:13:00 [facility] Height 2016-07-24 02:13:00 160.02 cm [facility] Respitory Rate 2016-06-15 15:00:00 [facility] Systolic (mm Hg) 2016-06-15 15:00:00 [facility] Diastolic (mm Hg) 2016-06-15 15:00:00 [facility] Respitory Rate 2016-06-15 14:00:00 [facility] Systolic (mm Hg) 2016-06-15 14:00:00 [facility] Diastolic (mm Hg) 2016-06-15 14:00:00 [facility] Respitory Rate 2016-06-15 13:29:00 [facility] [place] Systolic (mm Hg) 2016-06-15 13:29:00 [facility] [place] Diastolic (mm Hg) 2016-06-15 13:29:00 [facility] [place] Temperature Oral (F) 2016-06-14 10:56:00 97.1 F [facility] Temperature Oral (F) 2016-06-14 06:55:00 97.1 F [facility] Temperature Oral (F) 2016-06-12 10:00:00 96.8 F [facility] [place] Weight 2016-06-11 04:25:00 [facility] Height 2016-06-11 04:25:00 160.02 cm [facility] [place] BMI Calculated 2016-06-11 04:25:00 [facility] Heart Rate 2016-06-11 02:04:00 [facility] Heart Rate 2016-06-11 00:00:00 [facility] [place] Heart Rate 2016-06-10 20:30:00 [facility] Weight 2016-06-10 16:04:00 [facility] [place] BMI Calculated 2016-06-10 16:04:00 [facility] [place] Height 2016-06-10 16:04:00 160.02 cm [facility] Temperature Oral (F) 2014-06-26 15:12:00 98.0 F [facility] [place] Systolic (mm Hg) 2014-06-26 15:12:00 [facility] Heart Rate 2014-06-26 15:12:00 [facility] [place] Diastolic (mm Hg) 2014-06-26 15:12:00 [facility] [place] Respitory Rate 2014-06-26 15:12:00 [facility] [place] Systolic (mm Hg) 2014-06-26 13:53:00 [facility] Diastolic (mm Hg) 2014-06-26 13:53:00 [facility] Respitory Rate 2014-06-26 13:53:00 [facility] Temperature Oral (F) 2014-06-26 13:53:00 98.0 F [facility] Temperature Oral (F) 2014-06-26 12:37:00 98.2 F [facility] [place] Respitory Rate 2014-06-26 12:37:00 [facility] Systolic (mm Hg) 2014-06-26 12:37:00 [facility] [place] Diastolic (mm Hg) 2014-06-26 12:37:00 [facility] Heart Rate 2014-06-26 09:21:00 [facility] [place] Heart Rate 2014-06-26 06:08:00 [facility] Height 2014-06-26 05:35:00 154.94 cm [facility] Weight 2014-06-26 05:35:00 [facility] [place] BMI Calculated 2014-06-26 05:35:00 [facility] Respitory Rate 2013-04-15 06:10:00 [facility] [place] Diastolic (mm Hg) 2013-04-15 06:10:00 [facility] [place] Heart Rate 2013-04-15 06:10:00 [facility] Systolic (mm Hg) 2013-04-15 06:10:00 [facility] [place] Temperature Oral (F) 2013-04-15 06:10:00 98.7 F [facility] Respitory Rate 2013-04-15 05:37:00 [facility] [place] Diastolic (mm Hg) 2013-04-15 05:37:00 [facility] [place] Systolic (mm Hg) 2013-04-15 05:37:00 [facility] Temperature Oral (F) 2013-04-15 05:37:00 98.2 F [facility] Heart Rate 2013-04-15 05:37:00 [facility] Height 2013-04-15 02:06:00 160.02 cm [facility] Weight 2013-04-15 02:06:00 [facility] Temperature Oral (F) 2013-04-15 02:06:00 98.6 F [facility] Respitory Rate 2013-04-15 02:06:00 [facility] Heart Rate 2013-04-15 02:06:00 [facility] Diastolic (mm Hg) 2013-04-15 02:06:00 [facility] [place] Systolic (mm Hg) 2013-04-15 02:06:00 [facility] [place] Weight 2012-03-14 21:33:00 [facility] [place] Systolic (mm Hg) 2011-12-01 00:33:00 [facility] Respitory Rate 2011-12-01 00:33:00 [facility] Heart Rate 2011-12-01 00:33:00 [facility] Diastolic (mm Hg) 2011-12-01 00:33:00 [facility] Temperature Oral (F) 2011-12-01 00:33:00 99.6 F [facility] Diastolic (mm Hg) 2011-11-30 21:00:00 [facility] [place] Heart Rate 2011-11-30 21:00:00 [facility] Respitory Rate 2011-11-30 21:00:00 [facility] Systolic (mm Hg) 2011-11-30 21:00:00 [facility] [place] Temperature Oral (F) 2011-11-30 21:00:00 99.8 F [facility] Respitory Rate 2011-11-30 16:30:00 [facility] Systolic (mm Hg) 2011-11-30 16:30:00 [facility] Diastolic (mm Hg) 2011-11-30 16:30:00 [facility] Heart Rate 2011-11-30 16:30:00 [facility] Temperature Oral (F) 2011-11-30 16:30:00 99.8 F [facility] Weight 2011-11-29 11:40:00 [facility] Height 2011-11-29 11:40:00 157.48 cm [facility] Weight 2011-11-28 17:16:00 [facility] Weight 2011-09-18 13:30:00 [facility] [place] Height 2011-09-18 13:30:00 154.94 cm [facility] Heart Rate 2011-09-09 13:31:00 [facility] Systolic (mm Hg) 2011-09-09 13:02:00 [facility] Diastolic (mm Hg) 2011-09-09 13:02:00 [facility] [place] Respitory Rate 2011-09-09 13:02:00 [facility] [place] Temperature Oral (F) 2011-09-09 13:02:00 97.5 F [facility] Diastolic (mm Hg) 2011-09-09 08:00:00 [facility] [place] Heart Rate 2011-09-09 08:00:00 [facility] Temperature Oral (F) 2011-09-09 08:00:00 98.6 F [facility] Respitory Rate 2011-09-09 08:00:00 [facility] Systolic (mm Hg) 2011-09-09 08:00:00 [facility] [place] Respitory Rate 2011-09-09 04:55:00 [facility] [place] Diastolic (mm Hg) 2011-09-09 04:55:00 [facility] Systolic (mm Hg) 2011-09-09 04:55:00 [facility] [place] Heart Rate 2011-09-09 04:55:00 [facility] Temperature Oral (F) 2011-09-09 00:55:00 98.7 F [facility] Weight 2011-09-01 19:59:00 [facility] Height 2011-09-01 19:59:00 154.94 cm [facility] Height 2011-09-01 07:01:00 154.94 cm [facility] Weight 2011-09-01 07:01:00 [facility] [place] Respitory Rate 2011-08-23 18:00:00 [facility] Heart Rate 2011-08-23 18:00:00 [facility] Systolic (mm Hg) 2011-08-23 18:00:00 [facility] [place] Diastolic (mm Hg) 2011-08-23 18:00:00 [facility] [place] Temperature Oral (F) 2011-08-23 18:00:00 97.7 F [facility] Heart Rate 2011-08-23 14:24:00 [facility] Temperature Oral (F) 2011-08-23 14:24:00 98.2 F [facility] Diastolic (mm Hg) 2011-08-23 14:24:00 [facility] Systolic (mm Hg) 2011-08-23 14:24:00 [facility] [place] Respitory Rate 2011-08-23 14:24:00 [facility] Systolic (mm Hg) 2011-08-23 11:15:00 Emndoza [facility] Diastolic (mm Hg) 2011-08-23 11:15:00 [facility] [place] Temperature Oral (F) 2011-08-23 11:00:00 98.3 F [facility] Heart Rate 2011-08-23 11:00:00 [facility] [place] Respitory Rate 2011-08-22 22:00:00 [facility] [place] Height 2011-08-20 09:12:00 154.94 cm [facility] Weight 2011-08-20 09:12:00 [facility] [place] Height 2011-08-19 20:28:00 154.94 cm Shahid Vin Weight 2011-08-19 20:28:00 Shahid Banuelos Procedures Procedure Date / Time Performed Performing Clinician [facility] e Emergency department visit 2013-04-15 05:00:00 [facility] for the evaluation and management of a patient, which requires these 3 kamara components within the constraints imposed by the urgency of the patient's clinical condition and/or mental status: A comprehensive history; A comprehensi Injection or Infusion of 2013-04-15 05:00:00 Mem orikatya Banuelos Other Therapeutic or Prophylactic Substance Intravenous infusion, 2013-04-15 05:00:00 Brandon Chase hydration; each additional hour (List separately in addition to code for primary procedure) Therapeutic, prophylactic, 2013-04-15 05:00:00 [facility] or diagnostic injection (specify substance or drug); each additional sequential intravenous push of a new substance/drug (List separately in addition to code for primary procedure) Therapeutic, prophylactic, 2013-04-15 05:00:00 [facility] or diagnostic injection (specify substance or drug); intravenous push, single or initial substance/drug section Shahid Joseph n Tubal ligation Shahid Banuelos Encounters Start End Encounter Admission Attending Care Care Encounter Source Date/Time Date/Time Type Type Clinicians Facility Department ID 2020-02-06 2020-02-06 Office [facility] [id number] 08:57:01 09:24:05 Visit Silverio Sims [id number] Joaquin Lambert [id number] Proftravonio [id number] [facility] 044 [facility] 2020-01-25 2020-01-31 Inpatient 1 Rei Waldron [facility] [id number] 21:31:00 18:15:00 Rei Waldron [facility] 2016-07-23 2016-07-30 Outpatient Yaquelin [facility] [id number] 20:04:00 10:20:00 Luna 10 2016-06-10 2016-06-15 Outpatient Franck [facility] [id number] 10:02:00 12:23:00 Joe Sanchez 2014-06-25 2014-06-26 Outpatient Courtney ANA [facility] [id number] 23:25:00 09:14:00 Atul Priest 2013-04-14 2013-04-15 Outpatient ANA ANA [id number] [facility] 21:04:00 01:45:00 07 [facility] 2013-04-14 2013-04-15 Outpatient ANA ANA [id number] [facility] 21:04:00 01:45:00 07 [facility] 2013-04-14 2013-04-15 Outpatient ANA ANA [id number] [facility] 21:04:00 01:45:00 07 [facility] 2013-04-14 2013-04-15 Outpatient ANA ANA [id number] [facility] 21:04:00 01:45:00 07 [facility] 2013-04-14 2013-04-15 Outpatient ANA ANA [id number] [facility] 21:04:00 01:45:00 07 [facility] Results Test Description Test Time Test Comments Results Result Comments Source POC Glucose 2020-01-31 16:39:05 Test Item Value Reference Range Interpretation Comme nts Glucose POC (test code = 183 mg/dL 70-115 H If you consider your patient Glucose POC) critically ill, the Merlin-Accu Check Infrom II meter should not be used for Glucose det ermination. Draw a venous Glucose and send to the main Lab for analysi s. Urine [id number] 11:32:13 Test Item Value Reference Range Interpretation Comments ORGANISM (test code = Escherichia coli ORGANISM) Amikacin (test code = S Amik) Ampicillin (test code = R Amp) Ampicillin/Sulbactam R (test code = Amp/Sul) Cefazolin (test code = S Cefaz) Cefepime (test code = S Cefep) Cefotaxime (test code = S Cefo) Ceftazidime (test code = S Ceftaz) Ceftriaxone (test code = S Ceftri) Cefuroxime (test code = S Cefur) Ciprofloxacin (test code S = Cipro) Gentamicin (test code = S Gent) Imipenem (test code = S Imi) Levofloxacin (test code S = Levo) Meropenem (test code = S Courtney) Nitrofurantoin (test S code = Nitro) Piperacillin/Tazobactam S (test code = Pip/Chepe) Tobramycin (test code = S Tobra) Trimethoprim/Sulfa (test S code = SXT) Final Report (test code >=100,000 cfu/ml = Final Report) Escherichia coli C Urine Added by [id number] 07:52:10 Test Item Value Reference Range Interpretation Comments Glucose POC (test 160 mg/dL 70-115 H If you con kier tender your code = Glucose POC) patient critically ill, the Merlin-Accu Check Infrom II meter should not be used for Glucose determination. Draw a venous Glucose and send to the main Lab for analysis. POC [id number] 19:32:05 Test Item Value Reference Range Interpretation Comments Glucose POC (test 184 mg/dL 70-115 H If you con kier tender your code = Glucose POC) patient critically ill, the Merlin-Accu Check Infrom II meter should not be used for Glucose determination. Draw a venous Glucose and send to the main Lab for analysis. POC [id number] 17:16:35 Test Item Value Reference Range Interpretation Comments Glucose POC (test 281 mg/dL 70-115 H Notify RN or MDIf you code = Glucose POC) consider your patient critically ill, the Merlin-Accu Chec k Infrom II meter should not be used for Glucos e determination. Draw a venous Glucose and send to the main Lab for analysis. POC [id number] 12:00:38 Test Item Value Reference Range Interpretation Comments Glucose POC (test 138 mg/dL 70-115 H Notify RN or MDIf you code = Glucose POC) consider your patient critically ill, the Merlin-Accu Chec k Infrom II meter should not be used for Glucos e determination. Draw a venous Glucose and send to the main Lab for analysis. POC [id number] 07:41:32 Test Item Value Reference Range Interpretation Comments Glucose POC (test 206 mg/dL 70-115 H Notify RN or MDIf you code = Glucose POC) consider your patient critically ill, the Merlin-Accu Chec k Infrom II meter should not be used for Glucos e determination. Draw a venous Glucose and send to the main Lab for analysis. Urinalysis [id number] 21:07:21 Test Item Value Reference Range Interpretation Comments UA WBC (test code = UA WBC) TNTC 0-5 A UA RBC (test code = UA RBC) 6-10 0-5 A UA Bacteria (test code = UA Bacteria) Profuse A UA Squam Epithelial (test code = UA 6-10 A Squam Epithelial) Urinalysis with Culture, if [id number] 20:35:14 Test Item Value Reference Range Interpretation Comments UA Color (test code = UA Color) VLADIMIR Yellow A UA Appear (test code = UA Appear) SCLD Clear A UA pH (test code = UA pH) 7.0 UA Spec Grav (test code = UA Spec 1.025 1.001-1.035 Grav) UA Glucose (test code = UA Glucose) NEG Negative UA Bili (test code = UA Bili) NEG Negative UA Ketones (test code = UA Ketones) NEG Negative UA Blood (test code = UA Blood) SML Negative A UA Protein (test code = UA Protein) 300 mg/dL N UA Urobilinogen (test code = UA .2 mg/dL >0.2 Urobilinogen) UA Nitrite (test code = UA Nitrite) NEG Negative UA Leuk Est (test code = UA Leuk MOD Negative A Est) UA Micro Ind? (test code = UA Micro Indicated Not Indicated A Ind?) POC [id number] 19:06:34 Test Item Value Reference Range Interpretation Comments Glucose POC (test 207 mg/dL 70-115 H If you con kier tender your code = Glucose POC) patient critically ill, the Merlin-Accu Check Infrom II meter should not be used for Glucose determination. Draw a venous Glucose and send to the main Lab for analysis. POC [id number] 17:12:03 Test Item Value Reference Range Interpretation Comments Glucose POC (test 173 mg/dL 70-115 H Notify RN or MDIf you code = Glucose POC) consider your patient critically ill, the Merlin-Accu Chec k Infrom II meter should not be used for Glucos e determination. Draw a venous Glucose and send to the main Lab for analysis. POC [id number] 11:58:01 Test Item Value Reference Range Interpretation Comments Glucose POC (test 289 mg/dL 70-115 H Notify RN or MDIf you code = Glucose POC) consider your patient critically ill, the Merlin-Accu Chec k Infrom II meter should not be used for Glucos e determination. Draw a venous Glucose and send to the main Lab for analysis. POC [id number] 08:19:37 Test Item Value Reference Range Interpretation Comments Glucose POC (test 201 mg/dL 70-115 H Notify RN or MDIf you code = Glucose POC) consider your patient critically ill, the Merlin-Accu Chec k Infrom II meter should not be used for Glucos e determination. Draw a venous Glucose and send to the main Lab for analysis. POC [id number] 20:37:35 Test Item Value Reference Range Interpretation Comments Glucose POC (test 272 mg/dL 70-115 H If you con kier tender your code = Glucose POC) patient critically ill, the Merlin-Accu Check Infrom II meter should not be used for Glucose determination. Draw a venous Glucose and send to the main Lab for analysis. POC [id number] 17:23:05 Test Item Value Reference Range Interpretation Comments Glucose POC (test 229 mg/dL 70-115 H If you con kier tender your code = Glucose POC) patient critically ill, the Merlin-Accu Check Infrom II meter should not be used for Glucose determination. Draw a venous Glucose and send to the main Lab for analysis. POC [id number] 12:01:01 Test Item Value Reference Range Interpretation Comments Glucose POC (test 155 mg/dL 70-115 H If you con kier tender your code = Glucose POC) patient critically ill, the Merlin-Accu Check Infrom II meter should not be used for Glucose determination. Draw a venous Glucose and send to the main Lab for analysis. POC [id number] 08:07:32 Test Item Value Reference Range Interpretation Comments Glucose POC (test 248 mg/dL 70-115 H If you con kier tender your code = Glucose POC) patient critically ill, the Merlin-Accu Check Infrom II meter should not be used for Glucose determination. Draw a venous Glucose and send to the main Lab for analysis. IG [id number] 06:50:39 Test Item Value Reference Range Interpretation Comments IG (test code = IG) 0.7 % 0.0-5.0 IG Abs (test code = IG Abs) 0 x10 N Complete Blood Count with [id number] 06:50:38 Test Item Value Reference Range Interpretation Comments WBC (test code = WBC) 5.9 x10 4.4-10.5 RBC (test code = RBC) 3.12 x10 3.75-5.20 L Hgb (test code = Hgb) 10.5 g/dL 12.2-14.8 L Hct (test code = Hct) 31.5 % 36.5-44.4 L MCV (test code = MCV) 101.00 fL 80.00-100.00 H MCHC (test code = 33.30 g/dL 32.00-37.50 MCHC) RDW CV (test code = 14.6 % 11.5-14.5 H RDW CV) MCH (test code = MCH) 33.7 pg 27.0-32.5 H Platelets (test code = 130.0 x10 140.0-440.0 L Platelets) MPV (test code = MPV) 12.9 fL N Slide Review (test Auto Auto Result cr eated by code = Slide Review) GL_SJM_ SLIDE_REV_AUTO nRBC (test code = 0 N nRBC) NRBC Abs (test code = 0.00 x10 N NRBC Abs) IPF (test code = IPF) 0 % N Automated [id number] 06:50:38 Test Item Value Reference Range Interpretation Comments Neutro Auto (test code = Neutro 50.3 % 36.0-70.0 Auto) Lymph Auto (test code = Lymph Auto) 38.6 % 12.0-44.0 Bingham Auto (test code = Bingham Auto) 7.3 % 0.0-11.0 Eos, Auto (test code = Eos, Auto) 2.4 % 0.0-7.0 Basophil Auto (test code = Basophil 0.7 % 0.0-2.0 Auto) Neutro Absolute (test code = Neutro 3.0 x10 1.6-7.4 Absolute) Lymph Absolute (test code = Lymph 2.28 x10 .50-4.60 Absolute) Bingham Absolute (test code = Bingham .43 x10 .00-1.20 Absolute) Eos Absolute (test code = Eos 0.14 x10 0.00-0.74 Absolute) Baso Absolute (test code = Baso 0.04 x10 0.00-0.21 Absolute) Basic Metabolic [id number] 05:38:20 Test Item Value Reference Range Interpretation Comments Sodium Level (test code = Sodium 138.0 mmol/L 136.0-145.0 Level) Potassium Level (test code = 4.10 mmol/L 3.50-5.10 Potassium Level) Chloride Level (test code = 101.0 mmol/L 98.0-107.0 Chloride Level) CO2 (test code = CO2) 31 mmol/L 20-31 Anion Gap (test code = Anion 6.0 mmol/L 5.0-15.0 Gap) BUN (test code = BUN) 36 mg/dL 9-23 H Creatinine Level (test code = 6.31 mg/dL 0.55-1.02 H Creatinine Level) BUN/Creat Ratio (test code = 5.7 ratio 10.0-20.0 L BUN/Creat Ratio) Glucose Level (test code = 228 mg/dL 74-106 H Glucose Level) Calcium Level (test code = 8.9 mg/dL 8.3-10.6 Calcium Level) Hemolysis (test code = 0 mg/dL 8-11 Hemolysis) Icterus (test code = Icterus) 0 mg/dL 8-11 Lipemia (test code = Lipemia) 0 mg/dL 8-11 Basic Metabolic [id number] 05:38:20 Test Item Value Reference Range Interpretation Comments Sodium Level (test 138.0 mmol/L 136.0-145.0 code = Sodium Level) Potassium Level 4.10 mmol/L 3.50-5.10 (test code = Potassium Level) Chloride Level (test 101.0 mmol/L 98.0-107.0 code = Chloride Level) CO2 (test code = 31 mmol/L 20-31 CO2) Anion Gap (test code 6.0 mmol/L 5.0-15.0 = Anion Gap) BUN (test code = 36 mg/dL 9-23 H BUN) Creatinine Level 6.31 mg/dL 0.55-1.02 H (test code = Creatinine Level) BUN/Creat Ratio 5.7 ratio 10.0-20.0 L (test code = BUN/Creat Ratio) Glucose Level (test 228 mg/dL 74-106 H code = Glucose Level) Calcium Level (test 8.9 mg/dL 8.3-10.6 code = Calcium Level) eGFR AA (test code = 9 mL/min/1.73 >=60 L eGFR ( estimated eGFR AA) m2 Glomerular Filtration Rate ) is an estimated va lue, calculated from the patient's serum creatinine usin g the MDRD equation. It is NOT the patient 's actual GFR. The eGFR provides a more clinically usef ul measure of kidn ey disease than se rum creatinine alone.This calculation vitaly es sex and race in to account, if the information is provided. If th e race is not provided, and t he patient is -Yuliet n, multiply by 1.2 12. If sex is not provided, and t he patient is fema le, multiply by 0.7 42. Results for pat ients <18 years of ag e have not been validated by th e MDRD study and should be interpreted wit h caution. eGFR R esult Interpretation: eGFR > or = 60 is in the Normal RangeeGF R < 60 may mean kid calos diseaseeGFR < 1 5 may mean kidney failure Rang es recommended by the National Kidney Foundation, http://nkdep.ni h.gov Hemolysis (test code 0 mg/dL 8-11 = Hemolysis) Icterus (test code = 0 mg/dL 8-11 Icterus) Lipemia (test code = 0 mg/dL 8-11 Lipemia) Basic Metabolic [id number] 05:38:20 Test Item Value Reference Range Interpretation Comments Sodium Level (test 138.0 mmol/L 136.0-145.0 code = Sodium Level) Potassium Level 4.10 mmol/L 3.50-5.10 (test code = Potassium Level) Chloride Level (test 101.0 mmol/L 98.0-107.0 code = Chloride Level) CO2 (test code = 31 mmol/L 20-31 CO2) Anion Gap (test code 6.0 mmol/L 5.0-15.0 = Anion Gap) BUN (test code = 36 mg/dL 9-23 H BUN) Creatinine Level 6.31 mg/dL 0.55-1.02 H (test code = Creatinine Level) BUN/Creat Ratio 5.7 ratio 10.0-20.0 L (test code = BUN/Creat Ratio) Glucose Level (test 228 mg/dL 74-106 H code = Glucose Level) Calcium Level (test 8.9 mg/dL 8.3-10.6 code = Calcium Level) eGFR AA (test code = 9 mL/min/1.73 >=60 L eGFR ( estimated eGFR AA) m2 Glomerular Filtration Rate ) is an estimated va lue, calculated from the patient's serum creatinine usin g the MDRD equation. It is NOT the patient 's actual GFR. The eGFR provides a more clinically usef ul measure of kidn ey disease than se rum creatinine alone.This calculation vitaly es sex and race in to account, if the information is provided. If th e race is not provided, and t he patient is -Yuliet n, multiply by 1.2 12. If sex is not provided, and t he patient is fema le, multiply by 0.7 42. Results for pat ients <18 years of ag e have not been validated by [facility] MDRD study and should be interpreted wit h caution. eGFR R esult Interpretation: eGFR > or = 60 is in the Normal RangeeGF R < 60 may mean kid calos diseaseeGFR < 1 5 may mean kidney failure Rang es recommended by the National Kidney Foundation, http://nkdep.ni h.gov eGFR Non-AA (test 7.44 >=60.00 L eGFR (apple mated code = eGFR Non-AA) mL/min/1.73 m2 Glomer ular Filtration Rate ) is an estimated va lue, calculated from the patient's serum creatinine usin g the MDRD equation. It is NOT the patient 's actual GFR. The eGFR provides a more clinically usef ul measure of kidn ey disease than se rum creatinine alone.This calculation vitaly es sex and race in to account, if the information is provided. If th e race is not provided, and t he patient is -Yuliet n, multiply by 1.2 12. If sex is not provided, and t he patient is fema le, multiply by 0.7 42. Results for pat ients <18 years of ag e have not been validated by [facility] MDRD study and should be interpreted wit h caution. eGFR R esult Interpretation: eGFR > or = 60 is in the Normal RangeeGF R < 60 may mean kid calos diseaseeGFR < 1 5 may mean kidney failure Rang es recommended by the National Kidney Foundation, http://nkdep.ni h.gov Hemolysis (test code 0 mg/dL 8-11 = Hemolysis) Icterus (test code = 0 mg/dL 8-11 Icterus) Lipemia (test code = 0 mg/dL 8-11 Lipemia) POC [id number] 20:28:33 Test Item Value Reference Range Interpretation Comments Glucose POC (test 169 mg/dL 70-115 H If you con kier tender your code = Glucose POC) patient critically ill, the Merlin-Accu Check Infrom II meter should not be used for Glucose determination. Draw a venous Glucose and send to the main Lab for analysis. POC [id number] 16:39:30 Test Item Value Reference Range Interpretation Comments Glucose POC (test 103 mg/dL 70-115 If you con kier tender your code = Glucose POC) patient critically ill, the Merlin-Accu Check Infrom II meter should not be used for Glucose determination. Draw a venous Glucose and send to the main Lab for analysis. RPR [id number] 12:08:56 Test Item Value Reference Range Interpretation Comments RPR Qual (test code = RPR Qual) Non-Reactive Non-Reactive Reactive Control (test code = Reactive Reactive Control) Weak Reactive Control (test Weak Reactive code = Weak Reactive Control) Non-Reactive Control (test code Non-Reactive = Non-Reactive Control) Lot # (test code = Lot #) [id number] Expiration Dt (test code = 03-20-2021 N Expiration Dt) POC [id number] 11:52:31 Test Item Value Reference Range Interpretation Comments Glucose POC (test 250 mg/dL 70-115 H If you con kier tender your code = Glucose POC) patient critically ill, the Merlin-Accu Check Infrom II meter should not be used for Glucose determination. Draw a venous Glucose and send to the main Lab for analysis. POC [id number] 07:55:29 Test Item Value Reference Range Interpretation Comments Glucose POC (test 205 mg/dL 70-115 H If you con kier tender your code = Glucose POC) patient critically ill, the Merlin-Accu Check Infrom II meter should not be used for Glucose determination. Draw a venous Glucose and send to the main Lab for analysis. Lipid [id number] 05:46:04 Test Item Value Reference Range Interpretation Comments Cholesterol Total 152 mg/dL N Low-risk l evel (test code = (desirable) - < 200 Cholesterol Total) mg/dlMode rate-risk level (borderli ne) - 200-239 mg/dlHigh-risk level - ?240 mg/dl Triglycerides (test 254 mg/dL N Normal - <150 code = Triglycerides) mg/dlB orderline high - 150-199 mg/dl High - 200-499 mg/dl Very high - ?500 mg/ dl HDL (test code = HDL) 27.30 mg/dL N Low-ri sk level (desirable) - ? 60 mg/dlHigh-risk level (undesirable) - <40 mg/dl LDL (test code = LDL) 74 mg/dL N The eq uation being used in this calculation is LDL = (Chol - HDL) - (Trig / 5) VLDL (test code = 51 mg/dL 5-40 H The equati on being VLDL) used in this calculation is VLDL = Trig / 5 Chol/HDL (test code = 5.6 ratio <=5.0 H Chol/HDL) LDL/HDL Ratio (test 6 N The equa tion being code = LDL/HDL Ratio) used i n this calculation is LDL/HDL Ratio=L DL Calc/HDL Chol Thyroid Stimulating [id number] 05:46:04 Test Item Value Reference Range Interpretation Comments TSH (test code = TSH) 3.274 mcIU/mL 0.550-4.780 Hemoglobin [id number] 05:41:08 Test Item Value Reference Range Interpretation Comments Hemoglobin A1c (test code 7.6 % 4.0-5.8 H Di abetic >=6.5 = Hemoglobin A1c) %Prediabet es 5.7-6.4 %Normal <5.7 % Hepatitis B Surface [id number] 21:19:36 Test Item Value Reference Range Interpretation Comments Hep Bs Ag (test code = Hep Bs Non-Reactive Non-Reactive Ag) Novel Coronavirus SARS-CoV-2, [id number] 11:16:16 Test Item Value Reference Range Interpretation Comments SARS-CoV-2 PCR NEGATIVE Negative Positive resu lts are (test code = indicative of a ctive SARS-CoV-2 PCR) infection wi th SARS-CoV-2; clinical correl ation with patient history and other diagnostic info rmation is necessary to de termine patient infecti on status.Presumpt montse positive result s -INTERPRET WITH CAUTION: Resul t may not reflect if mason ent is actually positi ve. Patient should be treat ed based on clinical suspic ions. Negative result s do not preclude SARS-C oV-2 infection and s hould not be used as the sole basis for treatment o r other patient managem ent decisions. Nega tive results must be combined with clinical observations, p atient history, and epidemiological information.The Xpert Xpress SARS-CoV -2 test is only for use un martha the Food and Drug Administration s Emergency Use Authorization." Novel Coronavirus (COVID-19), EMANUEL [id number] 11:11:24TNPTest not sent and performed at [facility].Rapid was perfomed in Microbiology.Wrong covid test was ord ered.Urine DOA [id number] 00:17:49 Test Item Value Reference Range Interpretation Comments Amphetamine Screen Ur Negative Negative The sp ecimen is (test code = presumptive pos itive Amphetamine Screen Ur) if th e analyte concentration i s equal to or greater t scott 1000 ng/ml.If confirmation of positive result is desired, please order Amphetamine Confirmation, U rine within 7 days. Barbiturate Screen Ur Negative Negative The sp ecimen is (test code = presumptive pos itive Barbiturate Screen Ur) if th e analyte concentration i s equal to or greater t scott 200 ng/ml.If confir mation of positive res ult is desired, please order Barbiturate Confirmation, U rine within 7 days. Benzodiazepines Ur Negative Negative The speci men is (test code = presumptive pos itive Benzodiazepines Ur) if the a nalyte concentration i s equal to or greater t scott 200 ng/ml.If confir mation of positive res ult is desired, please order Benzodiazephine Confirmation, U rine within 7 days. Cocaine Screen Ur (test Negative Negative The specimen is code = Cocaine Screen presum ptive positive Ur) if the analyte concentration i s equal to or greater t scott 300 ng/ml.If confir mation of positive res ult is desired, please order Cocaine Metabol ite Confirmation, U rine within 7 days. Opiate Screen Ur (test Negative Negative The s pecimen is code = Opiate Screen presump tive positive Ur) if the analyte concentration i s equal to or greater t scott 2000 ng/ml.If confirmation of positive result is desired, please order Opiate Confirm ation, Urine within 7 days. U PCP Scrn (test code = Negative Negative The specimen is U PCP Scrn) presumptive pos itive if the analyte concentration i s equal to or greater t scott 25 ng/ml.If confir mation of positive res ult is desired, please order Phencyclidine Confirmation, U rine within 7 days. Cannabinoid Screen Ur Negative Negative The sp ecimen is (test code = presumptive pos itive Cannabinoid Screen Ur) if th e analyte concentration i s equal to or greater t scott 50 ng/ml.If confir mation of positive res ult is desired, please order Cannabinoid (TH C) Confirmation, U rine within 7 days. U Methadone Scr (test Negative Negative The sp ecimen is code = U Methadone Scr) pres umptive positive if the analyte concentration i s equal to or greater t scott 300 ng/ml.If confir mation of positive res ult is desired, please order Methadone Confirmation, U rine within 7 days. U Propoxyphene (test Negative Negative The spe cimen is code = U Propoxyphene) presu mptive positive if the analyte concentration i s equal to or greater t scott 300 ng/ml.If confir mation of positive res ult is desired, please order Propoxyphene Confirmation wi thin 7 days. Alcohol [id number] 00:17:29 Test Item Value Reference Range Interpretation Comments Ethanol Level 9.0 mg/dL N The pharmacolo gical (test code = response to blo od alcohol Ethanol Level) levels may va ry from individual to i ndividual. The fatal omkar ntration has been report ed to be >400 mg/dl. Comprehensive Metabolic [id number] 00:17:28 Test Item Value Reference Range Interpretation Comments Sodium Level (test code = Sodium 139.0 mmol/L 136.0-145.0 Level) Potassium Level (test code = 4.30 mmol/L 3.50-5.10 Potassium Level) Chloride Level (test code = 101.0 mmol/L 98.0-107.0 Chloride Level) CO2 (test code = CO2) 28 mmol/L 20-31 Anion Gap (test code = Anion 10.5 mmol/L 5.0-15.0 Gap) BUN (test code = BUN) 23 mg/dL 9-23 Creatinine Level (test code = 5.98 mg/dL 0.55-1.02 H Creatinine Level) BUN/Creat Ratio (test code = 3.8 ratio 10.0-20.0 L BUN/Creat Ratio) Glucose Level (test code = 245 mg/dL 74-106 H Glucose Level) Calcium Level (test code = 8.7 mg/dL 8.3-10.6 Calcium Level) Alk Phos (test code = Alk Phos) 65 U/L 46-116 Bilirubin Total (test code = 0.3 mg/dL 0.2-1.1 Bilirubin Total) Albumin Level (test code = 4.0 g/dL 3.2-4.8 Albumin Level) Protein Total (test code = 6.6 g/dL 5.7-8.2 Protein Total) ALT (test code = ALT) 17 U/L 10-49 AST (test code = AST) 20 U/L <=34 Globulin (test code = Globulin) 2.6 g/dL 2.3-3.5 A/G Ratio (test code = A/G 1.5 g/dL 0.8-2.0 Ratio) Hemolysis (test code = 0 g/dL 1-2 Hemolysis) Icterus (test code = Icterus) 0 g/dL 1-2 Lipemia (test code = Lipemia) 0 g/dL 1-2 Comprehensive Metabolic [id number] 00:17:28 Test Item Value Reference Range Interpretation Comments Sodium Level (test 139.0 mmol/L 136.0-145.0 code = Sodium Level) Potassium Level 4.30 mmol/L 3.50-5.10 (test code = Potassium Level) Chloride Level (test 101.0 mmol/L 98.0-107.0 code = Chloride Level) CO2 (test code = 28 mmol/L 20-31 CO2) Anion Gap (test code 10.5 mmol/L 5.0-15.0 = Anion Gap) BUN (test code = 23 mg/dL 9-23 BUN) Creatinine Level 5.98 mg/dL 0.55-1.02 H (test code = Creatinine Level) BUN/Creat Ratio 3.8 ratio 10.0-20.0 L (test code = BUN/Creat Ratio) Glucose Level (test 245 mg/dL 74-106 H code = Glucose Level) Calcium Level (test 8.7 mg/dL 8.3-10.6 code = Calcium Level) Alk Phos (test code 65 U/L 46-116 = Alk Phos) Bilirubin Total 0.3 mg/dL 0.2-1.1 (test code = Bilirubin Total) Albumin Level (test 4.0 g/dL 3.2-4.8 code = Albumin Level) Protein Total (test 6.6 g/dL 5.7-8.2 code = Protein Total) ALT (test code = 17 U/L 10-49 ALT) AST (test code = 20 U/L <=34 AST) Globulin (test code 2.6 g/dL 2.3-3.5 = Globulin) A/G Ratio (test code 1.5 g/dL 0.8-2.0 = A/G Ratio) eGFR AA (test code = 10 mL/min/1.73 >=60 L eGFR (estimated eGFR AA) m2 Glomerular Filtration Rate ) is an estimated va lue, calculated from the patient's serum creatinine usin g the MDRD equation. It is NOT the patient 's actual GFR. The eGFR provides a more clinically usef ul measure of kidn ey disease than se rum creatinine alone.This calculation vitaly es sex and race in to account, if the information is provided. If th e race is not provided, and t he patient is -Yuliet n, multiply by 1.2 12. If sex is not provided, and t he patient is fema le, multiply by 0.7 42. Results for pat ients <18 years of ag e have not been validated by th e MDRD study and should be interpreted wit h caution. eGFR R esult Interpretation: eGFR > or = 60 is in the Normal RangeeGF R < 60 may mean kid calos diseaseeGFR < 1 5 may mean kidney failure Rang es recommended by the National Kidney Foundation, http://nkdep.ni h.gov Hemolysis (test code 0 g/dL 1-2 = Hemolysis) Icterus (test code = 0 g/dL 1-2 Icterus) Lipemia (test code = 0 g/dL 1-2 Lipemia) Comprehensive Metabolic [id number] 00:17:28 Test Item Value Reference Range Interpretation Comments Sodium Level (test 139.0 mmol/L 136.0-145.0 code = Sodium Level) Potassium Level 4.30 mmol/L 3.50-5.10 (test code = Potassium Level) Chloride Level (test 101.0 mmol/L 98.0-107.0 code = Chloride Level) CO2 (test code = 28 mmol/L 20-31 CO2) Anion Gap (test code 10.5 mmol/L 5.0-15.0 = Anion Gap) BUN (test code = 23 mg/dL 9-23 BUN) Creatinine Level 5.98 mg/dL 0.55-1.02 H (test code = Creatinine Level) BUN/Creat Ratio 3.8 ratio 10.0-20.0 L (test code = BUN/Creat Ratio) Glucose Level (test 245 mg/dL 74-106 H code = Glucose Level) Calcium Level (test 8.7 mg/dL 8.3-10.6 code = Calcium Level) Alk Phos (test code 65 U/L 46-116 = Alk Phos) Bilirubin Total 0.3 mg/dL 0.2-1.1 (test code = Bilirubin Total) Albumin Level (test 4.0 g/dL 3.2-4.8 code = Albumin Level) Protein Total (test 6.6 g/dL 5.7-8.2 code = Protein Total) ALT (test code = 17 U/L 10-49 ALT) AST (test code = 20 U/L <=34 AST) Globulin (test code 2.6 g/dL 2.3-3.5 = Globulin) A/G Ratio (test code 1.5 g/dL 0.8-2.0 = A/G Ratio) eGFR AA (test code = 10 mL/min/1.73 >=60 L eGFR (estimated eGFR AA) m2 Glomerular Filtration Rate ) is an estimated va lue, calculated from the patient's serum creatinine usin g the MDRD equation. It is NOT the patient 's actual GFR. The eGFR provides a more clinically usef ul measure of kidn ey disease than se rum creatinine alone.This calculation vitaly es sex and race in to account, if the information is provided. If th e race is not provided, and t he patient is -Yuliet n, multiply by 1.2 12. If sex is not provided, and t he patient is fema le, multiply by 0.7 42. Results for pat ients <18 years of ag e have not been validated by [facility] MDRD study and should be interpreted wit h caution. eGFR R esult Interpretation: eGFR > or = 60 is in the Normal RangeeGF R < 60 may mean kid calos diseaseeGFR < 1 5 may mean kidney failure Rang es recommended by the National Kidney Foundation, http://nkdep.ni h.gov eGFR Non-AA (test 7.92 >=60.00 L eGFR (apple mated code = eGFR Non-AA) mL/min/1.73 m2 Glomer ular Filtration Rate ) is an estimated va lue, calculated from the patient's serum creatinine usin g the MDRD equation. It is NOT the patient 's actual GFR. The eGFR provides a more clinically usef ul measure of kidn ey disease than se rum creatinine alone.This calculation vitaly es sex and race in to account, if the information is provided. If e race is not provided, and t he patient is -Yuliet n, multiply by 1.2 12. If sex is not provided, and t he patient is fema le, multiply by 0.7 42. Results for pat ients <18 years of ag e have not been validated by [facility] MDRD study and should be interpreted wit h caution. eGFR R esult Interpretation: eGFR > or = 60 is in the Normal RangeeGF R < 60 may mean kid calos diseaseeGFR < 1 5 may mean kidney failure Rang es recommended by the National Kidney Foundation, http://nkdep.ni h.gov Hemolysis (test code 0 g/dL 1-2 = Hemolysis) Icterus (test code = 0 g/dL 1-2 Icterus) Lipemia (test code = 0 g/dL 1-2 Lipemia) Complete Blood Count with [id number] 23:26:28 Test Item Value Reference Range Interpretation Comments WBC (test code = WBC) 9.0 x10 4.4-10.5 RBC (test code = RBC) 3.80 x10 3.75-5.20 Hgb (test code = Hgb) 12.3 g/dL 12.2-14.8 MCV (test code = MCV) 101.60 fL 80.00-100.00 H Hct (test code = Hct) 38.6 % 36.5-44.4 MCHC (test code = 31.90 g/dL 32.00-37.50 L MCHC) RDW CV (test code = 14.9 % 11.5-14.5 H RDW CV) MCH (test code = MCH) 32.4 pg 27.0-32.5 Platelets (test code = 178.0 x10 140.0-440.0 Platelets) MPV (test code = MPV) 12.3 fL N Slide Review (test Auto Auto Result cr eated by code = Slide Review) GL_SJM_ SLIDE_REV_AUTO nRBC (test code = 0 N nRBC) NRBC Abs (test code = 0.00 x10 N NRBC Abs) IPF (test code = IPF) 0 % N Automated [id number] 23:26:28 Test Item Value Reference Range Interpretation Comments Neutro Auto (test code = Neutro 67.1 % 36.0-70.0 Auto) Lymph Auto (test code = Lymph Auto) 23.3 % 12.0-44.0 Bingham Auto (test code = Bingham Auto) 5.8 % 0.0-11.0 Eos, Auto (test code = Eos, Auto) 2.3 % 0.0-7.0 Basophil Auto (test code = Basophil 0.8 % 0.0-2.0 Auto) Neutro Absolute (test code = Neutro 6.0 x10 1.6-7.4 Absolute) Lymph Absolute (test code = Lymph 2.10 x10 .50-4.60 Absolute) Bingham Absolute (test code = Bingham .52 x10 .00-1.20 Absolute) Eos Absolute (test code = Eos 0.21 x10 0.00-0.74 Absolute) Baso Absolute (test code = Baso 0.07 x10 0.00-0.21 Absolute) IG [id number] 23:26:28 Test Item Value Reference Range Interpretation Comments IG (test code = IG) 0.7 % 0.0-5.0 IG Abs (test code = IG Abs) 0 x10 N HERPES VIRUS ANTIBODY, [id number] 21:46:00 Test Item Value Reference Range Interpretation Comments HERPES VIRUS IGM (BEAKER) Negative SE E ATTACHMENT (test code = 1808) BLOOD [id number] 06:00:00 Test Item Value Reference Range Interpretation Comments CULTURE (BEAKER) (test No growth in 5 days code = 1095) BLOOD [id number] 06:00:00 Test Item Value Reference Range Interpretation Comments CULTURE (BEAKER) (test No growth in 5 days code = 1095) POCT-GLUCOSE [id number] 12:11:00 Test Item Value Reference Range Interpretation Comments POC-GLUCOSE METER 154 mg/dL 70-110 H TESTED AT [place] [address] (BEAKER) (test code = [facility] 1538) [id number] POCT-GLUCOSE [id number] 07:53:00 Test Item Value Reference Range Interpretation Comments POC-GLUCOSE METER 87 mg/dL 70-110 TESTED AT [place] [address] (BEAKER) (test code = [facility] [address] 1538) POCT-GLUCOSE [id number] 06:49:00 Test Item Value Reference Range Interpretation Comments POC-GLUCOSE METER 79 mg/dL 70-110 TESTED AT [place] [address] (BEAKER) (test code = [facility] [address] 1538) COMPREHENSIVE METABOLIC [id number] 06:15:00 Test Item Value Reference Range Interpretation Comments TOTAL PROTEIN 5.1 gm/dL 6.0-8.3 L (BEAKER) (test code = 770) ALBUMIN (BEAKER) 2.2 g/dL 3.5-5.0 L (test code = 1145) ALKALINE PHOSPHATASE 78 U/L 40-150 (BEAKER) (test code = 346) BILIRUBIN TOTAL 1.1 mg/dL 0.2-1.2 (BEAKER) (test code = 377) SODIUM (BEAKER) (test 142 meq/L 136-145 code = 381) POTASSIUM (BEAKER) 3.6 meq/L 3.5-5.1 (test code = 379) CHLORIDE (BEAKER) 106 meq/L 98-107 (test code = 382) CO2 (BEAKER) (test 27 meq/L 22-29 code = 355) BLOOD UREA NITROGEN 29 mg/dL 7-21 H (BEAKER) (test code = 354) CREATININE (BEAKER) 2.70 mg/dL 0.57-1.25 H (test code = 358) GLUCOSE RANDOM 79 mg/dL 70-105 (BEAKER) (test code = 652) CALCIUM (BEAKER) 8.2 mg/dL 8.4-10.2 L (test code = 697) AST (SGOT) (BEAKER) 256 U/L 5-34 H (test code = 353) ALT (SGPT) (BEAKER) 513 U/L 6-55 H (test code = 347) EGFR (BEAKER) (test 20 mL/min/1.73 ESTIMA AMPARO GFR IS code = 1092) sq m NOT ACCURATE CREATININE CLEARANCE IN PREDICTING GLOMERULAR FILTRATION RATE . ESTIMATED GFR I S NOT APPLICABLE FOR DIALYSIS PATIEN TS. [id number] 06:11:00 Test Item Value Reference Range Interpretation Comments MAGNESIUM (BEAKER) (test code = 2.1 mg/dL 1.6-2.6 627) HEPATIC FUNCTION [id number] 06:11:00 Test Item Value Reference Range Interpretation Comments TOTAL PROTEIN (BEAKER) (test code = 5.1 gm/dL 6.0-8.3 L 770) ALBUMIN (BEAKER) (test code = 1145) 2.2 g/dL 3.5-5.0 L BILIRUBIN TOTAL (BEAKER) (test code 1.1 mg/dL 0.2-1.2 = 377) BILIRUBIN DIRECT (BEAKER) (test 0.7 mg/dL 0.1-0.5 H code = 706) ALKALINE PHOSPHATASE (BEAKER) (test 78 U/L 40-150 code = 346) AST (SGOT) (BEAKER) (test code = 256 U/L 5-34 H 353) ALT (SGPT) (BEAKER) (test code = 513 U/L 6-55 H 347) [id number] 05:30:00 Test Item Value Reference Range Interpretation Comments FIBRINOGEN LEVEL (BEAKER) (test 368 mg/dl 225-434 code = 658) [id number] 05:30:00 Test Item Value Reference Range Interpretation Comments PARTIAL THROMBOPLASTIN TIME 42.2 seconds 22.5-36.0 H (BEAKER) (test code = 760) PROTHROMBIN [id number] 05:29:00 Test Item Value Reference Range Interpretation Comments PROTIME (BEAKER) (test code = 14.8 seconds 11.7-14.7 H 759) INR (BANNER) (test code = 370) 1.2 <=5.9 RECOMMENDED COUMADIN/WARFARIN INR THERAPY RANGESSTANDARD DOSE: 2.0 - 3.0 Includes: PROPHYLAXIS forvenous thrombosis, systemic embolization; TREATMENT for venous thrombosis and/or pulmonary embolus.HIGH RISK: Target INR is 2.5-3.5 for patients with mechanical heart valves.POCT-GLUCOSE [id number] 21:09:00 Test Item Value Reference Range Interpretation Comments POC-GLUCOSE METER 178 mg/dL 70-110 H TESTED AT [place] [address] (BANNER) (test code = [facility] 1538) [id number] POCT-GLUCOSE [id number] 17:18:00 Test Item Value Reference Range Interpretation Comments POC-GLUCOSE METER 178 mg/dL 70-110 H TESTED AT [place] [address] (BANNER) (test code = [facility] 1538) [id number] POCT-GLUCOSE [id number] 13:48:00 Test Item Value Reference Range Interpretation Comments POC-GLUCOSE METER 150 mg/dL 70-110 H TESTED AT [place] [address] (BANNER) (test code = [facility] 1538) [address] FACTOR 5 ACTIVITY (BLEEDING RISK)2017-01-06 10:04:00 Test Item Value Reference Range Interpretation Comments FACTOR V ACTIVITY (BANNER) (test code 90.0 % 60.0-150.0 = 665) Effective 10/24/2013: Reference Range Change-Adult onlyNew: 60.0-150.0 Previous: 50.0-150.0CYTOMEGALOVIRUS ANTIBODY, [id number] 09:42:00 Test Item Value Reference Range Interpretation Comments CYTOMEGALOVIRUS IGM ANTIBODY Negative (Streak) (test code = 816) HERPES VIRUS ANTIBODY, [id number] 08:59:00 Test Item Value Reference Range Interpretation Comments 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) (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 G 1807) CYTOMEGALOVIRUS ANTIBODY, [id number] 08:59:00 Test Item Value Reference Range Interpretation Comments CYTOMEGALOVIRUS IGG ANTIBODY Positive (Streak) (test code = 790) EBV-VCA ANTIBODY, [id number] 08:59:00 Test Item Value Reference Range Interpretation Comments JASE-WALL VCA IGG (BEAKER) (test Positive code = 983) EBV-VCA ANTIBODY, [id number] 08:59:00 Test Item Value Reference Range Interpretation Comments JASE-WALL VCA IGM (BEAKER) (test Negative code = 984) POCT-GLUCOSE [id number] 07:59:00 Test Item Value Reference Range Interpretation Comments POC-GLUCOSE METER 81 mg/dL 70-[address] [facility] 67[address] (BEAKER) (test code = [place] [address] 1538) COMPREHENSIVE METABOLIC [id number] 06:23:00 Test Item Value Reference Range Interpretation Comments TOTAL PROTEIN 5.3 gm/dL 6.0-8.3 L (BEAKER) (test code = 770) ALBUMIN (BEAKER) 2.4 g/dL 3.5-5.0 L (test code = 1145) ALKALINE PHOSPHATASE 85 U/L 40-150 (BEAKER) (test code = 346) BILIRUBIN TOTAL 1.5 mg/dL 0.2-1.2 H (BEAKER) (test code = 377) SODIUM (BEAKER) (test 142 meq/L 136-145 code = 381) POTASSIUM (BEAKER) 3.5 meq/L 3.5-5.1 (test code = 379) CHLORIDE (BEAKER) 103 meq/L 98-107 (test code = 382) CO2 (BEAKER) (test 27 meq/L 22-29 code = 355) BLOOD UREA NITROGEN 30 mg/dL 7-21 H (BEAKER) (test code = 354) CREATININE (BEAKER) 3.00 mg/dL 0.57-1.25 H (test code = 358) GLUCOSE RANDOM 99 mg/dL 70-105 (BEAKER) (test code = 652) CALCIUM (BEAKER) 8.7 mg/dL 8.4-10.2 (test code = 697) AST (SGOT) (BEAKER) 364 U/L 5-34 H (test code = 353) ALT (SGPT) (BEAKER) 779 U/L 6-55 H (test code = 347) EGFR (BEAKER) (test 18 mL/min/1.73 ESTIMA AMPARO GFR IS code = 1092) sq m NOT ACCURATE CREATININE CLEARANCE IN PREDICTING GLOMERULAR FILTRATION RATE . ESTIMATED GFR I S NOT APPLICABLE FOR DIALYSIS PATIEN TS. [id number] 06:17:00 Test Item Value Reference Range Interpretation Comments MAGNESIUM (BEAKER) (test code = 1.8 mg/dL 1.6-2.6 627) HEPATIC FUNCTION [id number] 06:17:00 Test Item Value Reference Range Interpretation Comments TOTAL PROTEIN (BEAKER) (test code = 5.3 gm/dL 6.0-8.3 L 770) ALBUMIN (BEAKER) (test code = 1145) 2.4 g/dL 3.5-5.0 L BILIRUBIN TOTAL (BEAKER) (test code 1.5 mg/dL 0.2-1.2 H = 377) BILIRUBIN DIRECT (BEAKER) (test 1.0 mg/dL 0.1-0.5 H code = 706) ALKALINE PHOSPHATASE (BEAKER) (test 85 U/L 40-150 code = 346) AST (SGOT) (BEAKER) (test code = 364 U/L 5-34 H 353) ALT (SGPT) (BEAKER) (test code = 779 U/L 6-55 H 347) [id number] 06:00:00 Test Item Value Reference Range Interpretation Comments FIBRINOGEN LEVEL (BEAKER) (test 390 mg/dl 225-434 code = 658) [id number] 06:00:00 Test Item Value Reference Range Interpretation Comments PARTIAL THROMBOPLASTIN TIME 40.2 seconds 22.5-36.0 H (BEAKER) (test code = 760) PROTHROMBIN [id number] 05:59:00 Test Item Value Reference Range Interpretation Comments PROTIME (BEAKER) (test code = 14.6 seconds 11.7-14.7 759) INR (BEAKER) (test code = 370) 1.2 <=5.9 RECOMMENDED COUMADIN/WARFARIN INR THERAPY RANGESSTANDARD DOSE: 2.0 - 3.0 Includes: PROPHYLAXIS forvenous thrombosis, systemic embolization; TREATMENT for venous thrombosis and/or pulmonary embolus.HIGH RISK: Target INR is 2.5-3.5 for patients with mechanical heart valves.POCT-GLUCOSE [id number] 21:46:00 Test Item Value Reference Range Interpretation Comments POC-GLUCOSE METER 153 mg/dL 70-110 H TESTED AT [place] [address] (BEAKER) (test code = [facility] [place] 1538) [address] POCT-GLUCOSE [id number] 18:47:00 Test Item Value Reference Range Interpretation Comments POC-GLUCOSE METER 181 mg/dL 70-110 H TESTED AT [place] [address] (BEAKER) (test code = [facility] [place] 1538) [id number] POCT-GLUCOSE [id number] 12:40:00 Test Item Value Reference Range Interpretation Comments POC-GLUCOSE METER 178 mg/dL 70-110 H TESTED AT [place] [address] (BEAKER) (test code = [facility] [place] 1538) [id number] POCT-GLUCOSE [id number] 07:51:00 Test Item Value Reference Range Interpretation Comments POC-GLUCOSE METER 166 mg/dL 70-110 H TESTED AT [place] [address] (BEAKER) (test code = [facility] 1538) [id number] COMPREHENSIVE METABOLIC [id number] 03:26:00 Test Item Value Reference Range Interpretation Comments TOTAL PROTEIN 5.2 gm/dL 6.0-8.3 L (BEAKER) (test code = 770) ALBUMIN (BEAKER) 2.3 g/dL 3.5-5.0 L (test code = 1145) ALKALINE PHOSPHATASE 72 U/L 40-150 (BEAKER) (test code = 346) BILIRUBIN TOTAL 2.0 mg/dL 0.2-1.2 H (BEAKER) (test code = 377) SODIUM (BEAKER) (test 140 meq/L 136-145 code = 381) POTASSIUM (BEAKER) 3.3 meq/L 3.5-5.1 L (test code = 379) CHLORIDE (BEAKER) 99 meq/L 98-107 (test code = 382) CO2 (BEAKER) (test 29 meq/L 22-29 code = 355) BLOOD UREA NITROGEN 35 mg/dL 7-21 H (BEAKER) (test code = 354) CREATININE (BEAKER) 3.44 mg/dL 0.57-1.25 H (test code = 358) GLUCOSE RANDOM 151 mg/dL 70-105 H (BEAKER) (test code = 652) CALCIUM (BEAKER) 8.6 mg/dL 8.4-10.2 (test code = 697) AST (SGOT) (BEAKER) 506 U/L 5-34 H (test code = 353) ALT (SGPT) (BEAKER) 1009 U/L 6-55 H (test code = 347) EGFR (BEAKER) (test 15 mL/min/1.73 ESTIMA AMPARO GFR IS code = 1092) sq m NOT ACCURATE CREATININE CLEARANCE IN PREDICTING GLOMERULAR FILTRATION RATE . ESTIMATED GFR I S NOT APPLICABLE FOR DIALYSIS PATIEN TS. [id number] 03:22:00 Test Item Value Reference Range Interpretation Comments MAGNESIUM (BEAKER) (test code = 1.4 mg/dL 1.6-2.6 L 627) HEPATIC FUNCTION [id number] 03:22:00 Test Item Value Reference Range Interpretation Comments TOTAL PROTEIN (BEAKER) (test code = 5.2 gm/dL 6.0-8.3 L 770) ALBUMIN (BEAKER) (test code = 1145) 2.3 g/dL 3.5-5.0 L BILIRUBIN TOTAL (BEAKER) (test code 2.0 mg/dL 0.2-1.2 H = 377) BILIRUBIN DIRECT (BEAKER) (test 1.3 mg/dL 0.1-0.5 H code = 706) ALKALINE PHOSPHATASE (BEAKER) (test 72 U/L 40-150 code = 346) AST (SGOT) (BEAKER) (test code = 506 U/L 5-34 H 353) ALT (SGPT) (BEAKER) (test code = 1009 U/L 6-55 H 347) [id number] 03:12:00 Test Item Value Reference Range Interpretation Comments AMMONIA (BEAKER) (test code = 348) 29 mol/L 18-72 [id number] 03:10:00 Test Item Value Reference Range Interpretation Comments PARTIAL THROMBOPLASTIN TIME 42.3 seconds 22.5-36.0 H (BEAKER) (test code = 760) PROTHROMBIN [id number] 03:09:00 Test Item Value Reference Range Interpretation Comments PROTIME (BEAKER) (test code = 16.4 seconds 11.7-14.7 H 759) INR (BEAKER) (test code = 370) 1.3 <=5.9 RECOMMENDED COUMADIN/WARFARIN INR THERAPY RANGESSTANDARD DOSE: 2.0 - 3.0 Includes: PROPHYLAXIS forvenous thrombosis, systemic embolization; TREATMENT for venous thrombosis and/or pulmonary embolus.HIGH RISK: Target INR is 2.5-3.5 for patients with mechanical heart valves.[id number] 03:09:00 Test Item Value Reference Range Interpretation Comments FIBRINOGEN LEVEL (BEAKER) (test 413 mg/dl 225-434 code = 658) CBC W/PLT COUNT & AUTO [id number] 03:09:00 Test Item Value Reference Range Interpretation Comments WHITE BLOOD CELL COUNT (BEAKER) 2.9 K/ L 4.0-10.0 L (test code = 775) RED BLOOD CELL COUNT (BEAKER) 3.10 M/ L 4.00-5.00 L (test code = 761) HEMOGLOBIN (BEAKER) (test code = 9.5 GM/DL 12.0-15.0 L 410) HEMATOCRIT (BEAKER) (test code = 29.2 % 36.0-45.0 L 411) MEAN CORPUSCULAR VOLUME (BEAKER) 94.4 fL 82.0-99.0 (test code = 753) MEAN CORPUSCULAR HEMOGLOBIN 30.8 pg 27.0-33.0 (BEAKER) (test code = 751) MEAN CORPUSCULAR HEMOGLOBIN CONC 32.6 GM/DL 32.0-36.0 (BEAKER) (test code = 752) RED CELL DISTRIBUTION WIDTH 15.2 % 10.3-14.2 H (BEAKER) (test code = 412) PLATELET COUNT (BEAKER) (test 118 K/CU MM 150-430 L code = 756) MEAN PLATELET VOLUME (BEAKER) 9.2 fL 6.5-10.5 (test code = 754) NUCLEATED RED BLOOD CELLS 0 /100 WBC 0-0 (BEAKER) (test code = 413) NEUTROPHILS RELATIVE PERCENT 59 % (BEAKER) (test code = 429) LYMPHOCYTES RELATIVE PERCENT 27 % (BEAKER) (test code = 430) MONOCYTES RELATIVE PERCENT 10 % (BEAKER) (test code = 431) EOSINOPHILS RELATIVE PERCENT 4 % (BEAKER) (test code = 432) BASOPHILS RELATIVE PERCENT 1 % (BEAKER) (test code = 437) NEUTROPHILS ABSOLUTE COUNT 1.71 K/ L 1.80-8.00 L (BEAKER) (test code = 670) LYMPHOCYTES ABSOLUTE COUNT 0.78 K/ L 1.48-4.50 L (BEAKER) (test code = 414) MONOCYTES ABSOLUTE COUNT (BEAKER) 0.29 K/ L 0.00-1.30 (test code = 415) EOSINOPHILS ABSOLUTE COUNT 0.11 K/ L 0.00-0.50 (BEAKER) (test code = 416) BASOPHILS ABSOLUTE COUNT (BEAKER) 0.02 K/ L 0.00-0.20 (test code = 417) 0.00POCT-GLUCOSE [id number] 22:33:00 Test Item Value Reference Range Interpretation Comments POC-GLUCOSE METER 230 mg/dL 70-[address] [facility] 6720 (BEAKER) (test code = [place] 1538) [id number] POCT-GLUCOSE [id number] 18:17:00 Test Item Value Reference Range Interpretation Comments POC-GLUCOSE METER 222 mg/dL 70-[address] [facility] 6720 (BEAKER) (test code = [place] 1538) [address] COMPREHENSIVE METABOLIC [id number] 16:59:00 Test Item Value Reference Range Interpretation Comments TOTAL PROTEIN 4.9 gm/dL 6.0-8.3 L (BEAKER) (test code = 770) ALBUMIN (BEAKER) 2.2 g/dL 3.5-5.0 L (test code = 1145) ALKALINE PHOSPHATASE 71 U/L 40-150 (BEAKER) (test code = 346) BILIRUBIN TOTAL 2.2 mg/dL 0.2-1.2 H (BEAKER) (test code = 377) SODIUM (BEAKER) (test 140 meq/L 136-145 code = 381) POTASSIUM (BEAKER) 3.3 meq/L 3.5-5.1 L (test code = 379) CHLORIDE (BEAKER) 99 meq/L 98-107 (test code = 382) CO2 (BEAKER) (test 28 meq/L 22-29 code = 355) BLOOD UREA NITROGEN 36 mg/dL 7-21 H (BEAKER) (test code = 354) CREATININE (BEAKER) 3.57 mg/dL 0.57-1.25 H (test code = 358) GLUCOSE RANDOM 199 mg/dL 70-105 H (BEAKER) (test code = 652) CALCIUM (BEAKER) 8.5 mg/dL 8.4-10.2 (test code = 697) AST (SGOT) (BEAKER) 640 U/L 5-34 H (test code = 353) ALT (SGPT) (BEAKER) 1071 U/L 6-55 H (test code = 347) EGFR (BEAKER) (test 15 mL/min/1.73 ESTIMA AMPARO GFR IS code = 1092) sq m NOT ACCURATE CREATININE CLEARANCE IN PREDICTING GLOMERULAR FILTRATION RATE . ESTIMATED GFR I S NOT APPLICABLE FOR DIALYSIS PATIEN TS. PERIPHERAL BLOOD SMEAR - PATHOLOGIST [id number] 15:30:00 Test Item Value Reference Range Interpretation Comments RBC MORPHOLOGY Polychromasia (BEAKER) (test code = 2846) RBC MORPHOLOGY Anisocytosis (BEAKER) (test code = 03045) PERIPHERAL SMR REVIEW Cell counts confirmed (BEAKER) (test code = 2640) [id number] Josefina Lara M.D. ([facility]) (test code = (electronic signature) 9824) PROTHROMBIN [id number] 15:12:00 Test Item Value Reference Range Interpretation Comments PROTIME (BEAKER) (test code = 16.6 seconds 11.7-14.7 H 759) INR (BEAKER) (test code = 370) 1.4 <=5.9 RECOMMENDED COUMADIN/WARFARIN INR THERAPY RANGESSTANDARD DOSE: 2.0 - 3.0 Includes: PROPHYLAXIS forvenous thrombosis, systemic embolization; TREATMENT for venous thrombosis and/or pulmonary embolus.HIGH RISK: Target INR is 2.5-3.5 for patients with mechanical heart valves.ANTI-NUCLEAR ANTIBODY (IVETTE)2017-01-04 14:32:00 Test Item Value Reference Range Interpretation Comments ANTI-NUCLEAR ANTIBODY (IVETTE) (BEAKER) Negative Negative (test code = 418) POCT-GLUCOSE [id number] 12:47:00 Test Item Value Reference Range Interpretation Comments POC-GLUCOSE METER 212 mg/dL 70-[address] [facility] 6720 (BANNER) (test code = [place] 1538) [address] [id number] 12:34:00 Test Item Value Reference Range Interpretation Comments RPR SCREEN ([facility]) (test code = Nonreactive Nonreactive 420) CLOSTRIDIUM DIFFICILE TOXIN [id number] 10:12:00 Test Item Value Reference Range Interpretation Comments CLOSTRIDIUM DIFFICILE TOXIN, PCR Not Detected Not Detected (MADIE) (test code = 1525) This qualitative real-time polymerase chain reaction assay detects the tcdB gene, encoded on the C.difficile pathogenicity locus (PaLoc). [...] RISK)2017-01-04 09:15:00 Test Item Value Reference Range Interpretation Comments FACTOR V ACTIVITY (MADIE) (test code 86.0 % 60.0-150.0 = 665) Effective 10/24/2013: Reference Range Change-Adult onlyNew: 60.0-150.0 Previous: 50.0-150.0FACTOR 5 ACTIVITY (BLEEDING RISK)2017-01-04 09:13:00 Test Item Value Reference Range Interpretation Comments FACTOR V ACTIVITY (MADIE) (test code 56.0 % 60.0-150.0 L = 665) Effective 10/24/2013: Reference Range Change-Adult onlyNew: 60.0-150.0 Previous: 50.0-150.0POCT-GLUCOSE [id number] 06:40:00 Test Item Value Reference Range Interpretation Comments POC-GLUCOSE METER 167 mg/dL 70-[address] [facility] 6720 ([place]ANNER) (test code = [place] 1538) [address] COMPREHENSIVE METABOLIC [id number] 04:08:00 Test Item Value Reference Range Interpretation Comments TOTAL PROTEIN 4.7 gm/dL 6.0-8.3 L (Streak) (test code = 770) ALBUMIN (BANNER) 2.1 g/dL 3.5-5.0 L (test code = 1145) ALKALINE PHOSPHATASE 71 U/L 40-150 (BEAKER) (test code = 346) BILIRUBIN TOTAL 2.6 mg/dL 0.2-1.2 H (BEAKER) (test code = 377) SODIUM (BEAKER) 140 meq/L 136-145 (test code = 381) POTASSIUM (BEAKER) 2.8 meq/L 3.5-5.1 L (test code = 379) CHLORIDE (BEAKER) 95 meq/L 98-107 L (test code = 382) CO2 (BEAKER) (test 31 meq/L 22-29 H code = 355) BLOOD UREA NITROGEN 39 mg/dL 7-21 H (BEAKER) (test code = 354) CREATININE (BEAKER) 4.10 mg/dL 0.57-1.25 H (test code = 358) GLUCOSE RANDOM 155 mg/dL 70-105 H (BEAKER) (test code = 652) CALCIUM (BEAKER) 8.2 mg/dL 8.4-10.2 L (test code = 697) AST (SGOT) (BEAKER) 846 U/L 5-34 H (test code = 353) ALT (SGPT) (BEAKER) 1091 U/L 6-55 H (test code = 347) EGFR (BEAKER) (test mL/min/1.73 INSUFFIC IENT code = 1092) sq m CLINICAL DATA T O CALCULATE ESTIM ATED GFR. Specimen slightly ictericHEPATIC FUNCTION [id number] 04:06:00 Test Item Value Reference Range Interpretation Comments TOTAL PROTEIN (BEAKER) (test code = 4.7 gm/dL 6.0-8.3 L 770) ALBUMIN (BEAKER) (test code = 1145) 2.1 g/dL 3.5-5.0 L BILIRUBIN TOTAL (BEAKER) (test code 2.6 mg/dL 0.2-1.2 H = 377) BILIRUBIN DIRECT (BEAKER) (test 1.8 mg/dL 0.1-0.5 H code = 706) ALKALINE PHOSPHATASE (BEAKER) (test 71 U/L 40-150 code = 346) AST (SGOT) (BEAKER) (test code = 846 U/L 5-34 H 353) ALT (SGPT) (BEAKER) (test code = 1091 U/L 6-55 H 347) Specimen slightly [id number] 04:01:00 Test Item Value Reference Range Interpretation Comments FIBRINOGEN LEVEL (BEAKER) (test 379 mg/dl 225-434 code = 658) [id number] 04:01:00 Test Item Value Reference Range Interpretation Comments PARTIAL THROMBOPLASTIN TIME 40.7 seconds 22.5-36.0 H (BEAKER) (test code = 760) PROTHROMBIN [id number] 04:00:00 Test Item Value Reference Range Interpretation Comments PROTIME (BEAKER) (test code = 18.7 seconds 11.7-14.7 H 759) INR (BEAKER) (test code = 370) 1.6 <=5.9 RECOMMENDED COUMADIN/WARFARIN INR THERAPY RANGESSTANDARD DOSE: 2.0 - 3.0 Includes: PROPHYLAXIS forvenous thrombosis, systemic embolization; TREATMENT for venous thrombosis and/or pulmonary embolus.HIGH RISK: Target INR is 2.5-3.5 for patients with mechanical heart valves.CBC W/PLT COUNT & AUTO DIFFERENTIAL 2017-01-04 03:56:00 Test Item Value Reference Range Interpretation Comments WHITE BLOOD CELL COUNT (BEAKER) 3.1 K/ L 4.0-10.0 L (test code = 775) RED BLOOD CELL COUNT (BEAKER) 2.85 M/ L 4.00-5.00 L (test code = 761) HEMOGLOBIN (BEAKER) (test code = 8.8 GM/DL 12.0-15.0 L 410) HEMATOCRIT (BEAKER) (test code = 26.6 % 36.0-45.0 L 411) MEAN CORPUSCULAR VOLUME (BEAKER) 93.4 fL 82.0-99.0 (test code = 753) MEAN CORPUSCULAR HEMOGLOBIN 30.9 pg 27.0-33.0 (BEAKER) (test code = 751) MEAN CORPUSCULAR HEMOGLOBIN CONC 33.0 GM/DL 32.0-36.0 (BEAKER) (test code = 752) RED CELL DISTRIBUTION WIDTH 14.9 % 10.3-14.2 H (BEAKER) (test code = 412) PLATELET COUNT (BEAKER) (test code 98 K/CU MM 150-430 L = 756) MEAN PLATELET VOLUME (BEAKER) 9.1 fL 6.5-10.5 (test code = 754) NUCLEATED RED BLOOD CELLS (BEAKER) 0 /100 WBC 0-0 (test code = 413) NEUTROPHILS RELATIVE PERCENT 55 % (BEAKER) (test code = 429) LYMPHOCYTES RELATIVE PERCENT 27 % (BEAKER) (test code = 430) MONOCYTES RELATIVE PERCENT 12 % (BEAKER) (test code = 431) EOSINOPHILS RELATIVE PERCENT 5 % (BEAKER) (test code = 432) BASOPHILS RELATIVE PERCENT 1 % (BEAKER) (test code = 437) NEUTROPHILS ABSOLUTE COUNT 1.71 K/ L 1.80-8.00 L (BEAKER) (test code = 670) LYMPHOCYTES ABSOLUTE COUNT 0.83 K/ L 1.48-4.50 L (BEAKER) (test code = 414) MONOCYTES ABSOLUTE COUNT (BEAKER) 0.38 K/ L 0.00-1.30 (test code = 415) EOSINOPHILS ABSOLUTE COUNT 0.14 K/ L 0.00-0.50 (BEAKER) (test code = 416) BASOPHILS ABSOLUTE COUNT (BEAKER) 0.02 K/ L 0.00-0.20 (test code = 417) 0.00POCT-GLUCOSE [id number] 00:19:00 Test Item Value Reference Range Interpretation Comments POC-GLUCOSE METER 159 mg/dL 70-110 H TESTED AT [place] [address] (BANNER) (test code = [facility] 1538) [address] POCT-GLUCOSE [id number] 18:56:00 Test Item Value Reference Range Interpretation Comments POC-GLUCOSE METER 192 mg/dL 70-110 H TESTED AT [place] [address] (BANNER) (test code = [facility] 1538) [address] COMPREHENSIVE METABOLIC [id number] 16:55:00 Test Item Value Reference Range Interpretation Comments TOTAL PROTEIN 4.5 gm/dL 6.0-8.3 L (BEAKER) (test code = 770) ALBUMIN (BEAKER) 2.0 g/dL 3.5-5.0 L (test code = 1145) ALKALINE PHOSPHATASE 74 U/L 40-150 (BEAKER) (test code = 346) BILIRUBIN TOTAL 2.9 mg/dL 0.2-1.2 H (BEAKER) (test code = 377) SODIUM (BEAKER) 142 meq/L 136-145 (test code = 381) POTASSIUM (BEAKER) 3.0 meq/L 3.5-5.1 L (test code = 379) CHLORIDE (BEAKER) 95 meq/L 98-107 L (test code = 382) CO2 (BEAKER) (test 33 meq/L 22-29 H code = 355) BLOOD UREA NITROGEN 45 mg/dL 7-21 H (BEAKER) (test code = 354) CREATININE (BEAKER) 4.87 mg/dL 0.57-1.25 H (test code = 358) GLUCOSE RANDOM 177 mg/dL 70-105 H (BEAKER) (test code = 652) CALCIUM (BEAKER) 8.4 mg/dL 8.4-10.2 (test code = 697) AST (SGOT) (BEAKER) 1283 U/L 5-34 H (test code = 353) ALT (SGPT) (BEAKER) 1314 U/L 6-55 H (test code = 347) EGFR (BEAKER) (test mL/min/1.73 INSUFFIC IENT code = 1092) sq m CLINICAL DATA T O CALCULATE ESTIM ATED GFR. Specimen slightly ictericPROTHROMBIN [id number] 16:37:00 Test Item Value Reference Range Interpretation Comments PROTIME (BEAKER) (test code = 20.9 seconds 11.7-14.7 H 759) INR (BEAKER) (test code = 370) 1.8 <=5.9 RECOMMENDED COUMADIN/WARFARIN INR THERAPY RANGESSTANDARD DOSE: 2.0 - 3.0 Includes: PROPHYLAXIS forvenous thrombosis, systemic embolization; TREATMENT for venous thrombosis and/or pulmonary embolus.HIGH RISK: Target INR is 2.5-3.5 for patients with mechanical heart valves.HEPATITIS B SURFACE [id number] 14:05:00 Test Item Value Reference Range Interpretation Comments HEPATITIS B SURFACE ANTIBODY < mIU/mL <8.0 (BEAKER) (test code = 647) HEPATITIS B CORE ANTIBODY, [id number] 13:43:00 Test Item Value Reference Range Interpretation Comments HEPATITIS B CORE TOTAL ANTIBODY Nonreactive Nonreactive (BEAKER) (test code = 497) BLOOD GAS, [id number] 13:35:00 Test Item Value Reference Range Interpretation Comments PH ARTERIAL (BEAKER) (test code = 7.44 7.35-7.45 383) PCO2 ARTERIAL (BEAKER) (test code 55 mmHg 35-45 H = 384) PO2 ARTERIAL (BEAKER) (test code 99 mmHg 80-90 H = 385) O2 SATURATION ARTERIAL (BEAKER) 97.4 % 96.0-97.0 H (test code = 386) HCO3 ARTERIAL (BEAKER) (test code 36 mmol/L 21-29 H = 388) BASE EXCESS ARTERIAL (BEAKER) 10.3 mmol/L -2.0-3.0 H (test code = 387) PATIENT TEMPERATURE (BEAKER) 37.5 C (test code = 1818) FIO2 (BEAKER) (test code = 1819) 28.0 % URINALYSIS W/ [id number] 13:16:00 Test Item Value Reference Range Interpretation Comments COLOR (BEAKER) (test code = 470) Yellow CLARITY (BEAKER) (test code = Clear 469) SPECIFIC GRAVITY UA (BEAKER) 1.013 1.001-1.035 (test code = 468) PH UA (BEAKER) (test code = 467) 6.0 5.0-8.0 PROTEIN UA (BEAKER) (test code = 300 mg/dL Negative A 464) GLUCOSE UA (BEAKER) (test code = 30 mg/dL Negative A 365) KETONES UA (BEAKER) (test code = Trace Negative A 371) BILIRUBIN UA (BEAKER) (test code Positive Negative A = 462) BLOOD UA (BEAKER) (test code = Moderate Negative A 461) NITRITE UA (BEAKER) (test code = Negative Negative 465) LEUKOCYTE ESTERASE UA (BEAKER) Moderate Negative A (test code = 466) UROBILINOGEN UA (BEAKER) (test 2.0 mg/dL 0.2-1.0 H code = 463) RBC UA (BEAKER) (test code = 2 /HPF 519) WBC UA (BEAKER) (test code = 41 /HPF 520) HYALINE CASTS (BEAKER) (test 10 /LPF code = 514) AMORPHOUS CRYSTALS (BEAKER) Rare (test code = 1584) SOURCE(BEAKER) (test code = Urine, [place] 7823) VITAMIN D, [id number] 13:14:00 Test Item Value Reference Range Interpretation Comments VITAMIN D 25-OH (BEAKER) (test code = < ng/mL 13.0-47.8 L 2764) ALPHA FETOPROTEIN (AFP), TUMOR [id number] 13:06:00 Test Item Value Reference Range Interpretation Comments ALPHA-FETOPROTEIN (BEAKER) (test code < ng/mL <10.0 = 1094) Effective 05/08/2014: Reference Range ChangeNew: <10.0 Previous: 0.0-8.0 HEMOGLOBIN [id number] 13:05:00 Test Item Value Reference Range Interpretation Comments HEMOGLOBIN A1C (BEAKER) (test code = 7.6 % 4.3-6.1 H 368) CARCINOEMBRYONIC ANTIGEN (CEA)2017-01-03 12:59:00 Test Item Value Reference Range Interpretation Comments CARCINOEMBRYONIC ANTIGEN (BEAKER) 2.0 ng/mL 0.0-5.0 (test code = 685) [id number] 12:59:00 Test Item Value Reference Range Interpretation Comments FERRITIN (BEAKER) (test code = 1841 ng/mL 5-275 H 361) Effective 05/08/2014: Reference Range ChangeNew: Male 5-275 Previous: Male 22-322 Female 5-275 Female [id number] 12:58:00 Test Item Value Reference Range Interpretation Comments T4 TOTAL (BEAKER) (test code = 895) 4.5 ug/dL 4.9-11.7 L [id number] 12:58:00 Test Item Value Reference Range Interpretation Comments THYROID STIMULATING HORMONE 1.79 uIU/mL 0.35-4.94 (BEAKER) (test code = 772) [id number] 12:58:00 Test Item Value Reference Range Interpretation Comments T3 TOTAL (BEAKER) (test code = 656) 34 ng/dL 48-159 L Effective 05/08/2014: Reference Range ChangeNew: 48-159 Previous: 60-181 CALCIUM, [id number] 12:47:00 Test Item Value Reference Range Interpretation Comments CALCIUM IONIZED (BEAKER) (test 1.05 mmol/L 1.12-1.27 L code = 698) PH, BLOOD (BEAKER) (test code = 7.43 1810) [id number] 12:42:00 Test Item Value Reference Range Interpretation Comments TRANSFERRIN (BEAKER) (test code = 128 mg/dL 174-382 L 541) Specimen slightly ictericIRON, TIBC, % SAT. (WITHOUT FERRITIN)2017-01-03 12:42:00 Test Item Value Reference Range Interpretation Comments IRON (BEAKER) (test code = 547) 59 ug/dL 40-160 TOTAL IRON BINDING CAPACITY 160 ug/dL 250-450 L (BEAKER) (test code = 769) IRON % SATURATION (2) (BEAKER) 37 % 20-55 (test code = 2590) URIC [id number] 12:40:00 Test Item Value Reference Range Interpretation Comments URIC ACID (BEAKER) (test code = 16.0 mg/dL 2.6-7.2 H 773) Specimen slightly ictericLIPID [id number] 12:40:00 Test Item Value Reference Range Interpretation Comments TRIGLYCERIDES (BEAKER) (test code = 134 mg/dL 540) CHOLESTEROL (BEAKER) (test code = 120 mg/dL 631) HDL CHOLESTEROL (BEAKER) (test code 7 mg/dL = 976) LDL CHOLESTEROL CALCULATED (BEAKER) 86 mg/dL (test code = 633) Triglyceride Reference Range: Low Risk <150 Borderline 150-199 High Risk 200-499 Very High Risk >=500Cholesterol Reference Range: Low Risk <200 Borderline 200-239 High Risk >240HDL Cholesterol Reference Range: Low Risk >=60 High Risk <40LDL Cholesterol Reference Range: Optimal <100 Near Optimal 100-129 Borderline 130-159 High 160-189 Very High >=190 Specimen slightly ictericBILIRUBIN, [id number] 12:40:00 Test Item Value Reference Range Interpretation Comments BILIRUBIN DIRECT (BEAKER) (test 2.4 mg/dL 0.1-0.5 H code = 706) GAMMA GLUTAMYL TRANSFERASE (GGT)2017-01-03 12:40:00 Test Item Value Reference Range Interpretation Comments GAMMA GLUTAMYL TRANSFERASE (BEAKER) 53 U/L 9-64 (test code = 364) Specimen slightly [id number] 12:39:00 Test Item Value Reference Range Interpretation Comments ETHANOL (BEAKER) (test code = 400) < mg/dL <=10 SCREEN, [id number] 12:36:00 Test Item Value Reference Range Interpretation Comments TEST URINE (MADIE) (test Negative code = 583) POCT-GLUCOSE [id number] 12:34:00 Test Item Value Reference Range Interpretation Comments POC-GLUCOSE METER 189 mg/dL 70-[address] [facility] 6720 ([place]IANA) (test code = [place] 1538) [address] HIV-1 ANTIGEN WITH HIV-1/2 [id number] 11:58:00 Test Item Value Reference Range Interpretation Comments HIV-1 ANTIGEN WITH HIV 1\\T\\2 Nonreactive Nonreactive ANTIBODY (2) (BANNER) (test code = 2586) TROPONIN [id number] 09:44:00 Test Item Value Reference Range Interpretation Comments TROPONIN I (MADIE) (test code = 0.34 ng/mL 0.00-0.03 HH 397) Effective 05/08/2014: Reference Range ChangeNew: 0.00-0.03 Previous [...] and persistent tachyarrhythmia.CREATINE KINASE (CK), TOTAL AND MB 2017-01-03 09:43:00 Test Item Value Reference Range Interpretation Comments CREATINE KINASE TOTAL (MADIE) 301 U/L 29-200 H (test code = 380) CREATINE KINASE-MB (MADIE) (test 5.6 ng/mL 0.0-6.6 code = 750) CREATINE KINASE-MB INDEX (ILIANA) 1.9 % (test code = 395) Effective 05/08/2014: CK-MB Reference Range ChangeNew: 0.0-6.6 Previous: 0.0-4.9CK-MB Reference Range:<6.7 Normal6.7-10.0 Borderline>10.0 AbnormalACETAMINOPHEN [id number] 08:31:00 Test Item Value Reference Range Interpretation Comments ACETAMINOPHEN LEVEL (BEAKER) (test < ug/mL 10.0-30.0 L code = 344) TROPONIN [id number] 05:53:00 Test Item Value Reference Range Interpretation Comments TROPONIN I (BEAKER) (test code = 0.33 ng/mL 0.00-0.03 HH 397) Effective 05/08/2014: Reference Range ChangeNew: 0.00-0.03 Previous [...] acute neurological disease, and persistent tachyarrhythmia.BASIC METABOLIC [id number] 05:53:00 Test Item Value Reference Range Interpretation Comments SODIUM (BEAKER) 144 meq/L 136-145 (test code = 381) POTASSIUM (BEAKER) 2.8 meq/L 3.5-5.1 L (test code = 379) CHLORIDE (BEAKER) 95 meq/L 98-107 L (test code = 382) CO2 (BEAKER) (test 35 meq/L 22-29 H code = 355) BLOOD UREA NITROGEN 49 mg/dL 7-21 H (BEAKER) (test code = 354) CREATININE (BEAKER) 5.61 mg/dL 0.57-1.25 H (test code = 358) GLUCOSE RANDOM 138 mg/dL 70-105 H (BEAKER) (test code = 652) CALCIUM (BEAKER) 8.2 mg/dL 8.4-10.2 L (test code = 697) EGFR (BEAKER) (test mL/min/1.73 INSUFFIC IENT CLINICAL code = 1092) sq m DATA TO CALCULA TE ESTIMATED GFR. Specimen slightly [id number] 05:52:00 Test Item Value Reference Range Interpretation Comments PHOSPHORUS (BEAKER) (test code = 5.7 mg/dL 2.3-4.7 H 604) HEPATIC FUNCTION [id number] 05:52:00 Test Item Value Reference Range Interpretation Comments TOTAL PROTEIN (BEAKER) (test code = 5.2 gm/dL 6.0-8.3 L 770) ALBUMIN (BEAKER) (test code = 1145) 2.3 g/dL 3.5-5.0 L BILIRUBIN TOTAL (BEAKER) (test code 3.5 mg/dL 0.2-1.2 H = 377) BILIRUBIN DIRECT (BEAKER) (test 2.6 mg/dL 0.1-0.5 H code = 706) ALKALINE PHOSPHATASE (BEAKER) (test 81 U/L 40-150 code = 346) AST (SGOT) (BEAKER) (test code = 2190 U/L 5-34 H 353) ALT (SGPT) (BEAKER) (test code = 1782 U/L 6-55 H 347) Specimen slightly ictericCREATINE KINASE (CK), TOTAL AND [id number] 05:52:00 Test Item Value Reference Range Interpretation Comments CREATINE KINASE TOTAL (BEAKER) 341 U/L 29-200 H (test code = 380) CREATINE KINASE-MB (BEAKER) (test 5.4 ng/mL 0.0-6.6 code = 750) CREATINE KINASE-MB INDEX (BEAKER) 1.6 % (test code = 395) Effective 05/08/2014: CK-MB Reference Range ChangeNew: 0.0-6.6 Previous: 0.0-4.9CK-MB Reference Range:<6.7 Normal6.7-10.0 Borderline>10.0 AbnormalCBC W/PLT COUNT & AUTO [id number] 05:48:00 Test Item Value Reference Range Interpretation Comments WHITE BLOOD CELL COUNT (BEAKER) 4.1 K/ L 4.0-10.0 (test code = 775) RED BLOOD CELL COUNT (BEAKER) 3.29 M/ L 4.00-5.00 L (test code = 761) HEMOGLOBIN (BEAKER) (test code = 10.0 GM/DL 12.0-15.0 L 410) HEMATOCRIT (BEAKER) (test code = 30.7 % 36.0-45.0 L 411) MEAN CORPUSCULAR VOLUME (BEAKER) 93.5 fL 82.0-99.0 (test code = 753) MEAN CORPUSCULAR HEMOGLOBIN 30.5 pg 27.0-33.0 (BEAKER) (test code = 751) MEAN CORPUSCULAR HEMOGLOBIN CONC 32.6 GM/DL 32.0-36.0 (BEAKER) (test code = 752) RED CELL DISTRIBUTION WIDTH 15.0 % 10.3-14.2 H (BEAKER) (test code = 412) PLATELET COUNT (BEAKER) (test 106 K/CU MM 150-430 L code = 756) MEAN PLATELET VOLUME (BEAKER) 9.6 fL 6.5-10.5 (test code = 754) NUCLEATED RED BLOOD CELLS 0 /100 WBC 0-0 (BEAKER) (test code = 413) NEUTROPHILS RELATIVE PERCENT 66 % (BEAKER) (test code = 429) LYMPHOCYTES RELATIVE PERCENT 24 % (BEAKER) (test code = 430) MONOCYTES RELATIVE PERCENT 6 % (BEAKER) (test code = 431) EOSINOPHILS RELATIVE PERCENT 3 % (BEAKER) (test code = 432) BASOPHILS RELATIVE PERCENT 0 % (BEAKER) (test code = 437) NEUTROPHILS ABSOLUTE COUNT 2.74 K/ L 1.80-8.00 (BEAKER) (test code = 670) LYMPHOCYTES ABSOLUTE COUNT 1.00 K/ L 1.48-4.50 L (BEAKER) (test code = 414) MONOCYTES ABSOLUTE COUNT (BEAKER) 0.26 K/ L 0.00-1.30 (test code = 415) EOSINOPHILS ABSOLUTE COUNT 0.13 K/ L 0.00-0.50 (BEAKER) (test code = 416) BASOPHILS ABSOLUTE COUNT (BEAKER) 0.01 K/ L 0.00-0.20 (test code = 417) [id number] 05:09:00 Test Item Value Reference Range Interpretation Comments FIBRINOGEN LEVEL (BEAKER) (test 427 mg/dl 225-434 code = 658) [id number] 05:09:00 Test Item Value Reference Range Interpretation Comments PARTIAL THROMBOPLASTIN TIME 36.2 seconds 22.5-36.0 H (BEAKER) (test code = 760) PROTHROMBIN TIME/[id number] 05:08:00 Test Item Value Reference Range Interpretation Comments PROTIME (BEAKER) (test code = 22.8 seconds 11.7-14.7 H 759) INR (BEAKER) (test code = 370) 2.0 <=5.9 RECOMMENDED COUMADIN/WARFARIN INR THERAPY RANGESSTANDARD DOSE: 2.0 - 3.0 Includes: PROPHYLAXIS forvenous thrombosis, systemic embolization; TREATMENT for venous thrombosis and/or pulmonary embolus.HIGH RISK: Target INR is 2.5-3.5 for patients with mechanical heart valves.HEPATITIS PANEL, [id number] 03:40:00 Test Item Value Reference Range Interpretation Comments HEPATITIS A IGM ANTIBODY (BEAKER) Nonreactive Nonreactive (test code = 498) HEPATITIS B CORE IGM ANTIBODY Nonreactive Nonreactive (BEAKER) (test code = 645) HEPATITIS C ANTIBODY (BEAKER) Nonreactive Nonreactive (test code = 367) HEPATITIS B SURFACE ANTIGEN (2) Nonreactive Nonreactive (BEAKER) (test code = 2585) CREATININE, RANDOM [id number] 03:18:00 Test Item Value Reference Range Interpretation Comments CREATININE URINE (BEAKER) (test 118.7 mg/dL code = 375) Reference Range: No NormalsSODIUM, RANDOM [id number] 03:18:00 Test Item Value Reference Range Interpretation Comments SODIUM URINE (BEAKER) (test code = 60 meq/L 243) Reference Range: No NormalsUREA NITROGEN, RANDOM [id number] 03:18:00 Test Item Value Reference Range Interpretation Comments UREA NITROGEN URINE (BEAKER) (test 303 mg/dL code = 538) Reference Range: No [id number] 03:07:00 Test Item Value Reference Range Interpretation Comments AMMONIA (BEAKER) (test code = 348) 48 mol/L 18-72 [id number] 02:57:00 Test Item Value Reference Range Interpretation Comments D-DIMER QUANTITATIVE (BEAKER) 18.03 MG/L FEU <0.50 H (test code = 671) Intended Use: The D-Dimer Assay can be used to aid in the diagnosis of Deep Vein Thrombosis (DVT) and Pulmonary Embolism Disease (PED).In patients with low pre- test probability, various studies concerning STA Liatest D-dimer test have reported that with a cutoff value of 0.50 MG/L FEU, the Negative Predictive Value (NPV) regarding the exclusion of thrombosis is within 95-100% range. URINALYSIS W/ REFLEX URINE [id number] 02:53:00 Test Item Value Reference Range Interpretation Comments COLOR (BEAKER) (test code = 470) Yellow CLARITY (BEAKER) (test code = 469) Hazy SPECIFIC GRAVITY UA (BEAKER) (test 1.012 1.001-1.035 code = 468) PH UA (BEAKER) (test code = 467) 6.5 5.0-8.0 PROTEIN UA (BEAKER) (test code = 300 mg/dL Negative A 464) GLUCOSE UA (BEAKER) (test code = Negative Negative 365) KETONES UA (BEAKER) (test code = Negative Negative 371) BILIRUBIN UA (BEAKER) (test code = Positive Negative A 462) BLOOD UA (BEAKER) (test code = Moderate Negative A 461) NITRITE UA (BEAKER) (test code = Negative Negative 465) LEUKOCYTE ESTERASE UA (BEAKER) Large Negative A (test code = 466) UROBILINOGEN UA (BEAKER) (test 3.0 mg/dL 0.2-1.0 H code = 463) RBC UA (BEAKER) (test code = 519) 4 /HPF WBC UA (BEAKER) (test code = 520) > /HPF BACTERIA (BEAKER) (test code = Occasional 517) MUCUS (BEAKER) (test code = 1574) Rare SQUAMOUS EPITHELIAL (BEAKER) (test 19 /HPF code = 516) HYALINE CASTS (BEAKER) (test code 13 /LPF = 514) SOURCE(BEAKER) (test code = 2795) [id number] 02:49:00 Test Item Value Reference Range Interpretation Comments PARTIAL THROMBOPLASTIN TIME 39.4 seconds 22.5-36.0 H (BEAKER) (test code = 760) PROTHROMBIN TIME/[id number] 02:48:00 Test Item Value Reference Range Interpretation Comments PROTIME (BEAKER) (test code = 22.0 seconds 11.7-14.7 H 759) INR (BEAKER) (test code = 370) 1.9 <=5.9 RECOMMENDED COUMADIN/WARFARIN INR THERAPY RANGESSTANDARD DOSE: 2.0 - 3.0 Includes: PROPHYLAXIS forvenous thrombosis, systemic embolization; TREATMENT for venous thrombosis and/or pulmonary embolus.HIGH RISK: Target INR is 2.5-3.5 for patients with mechanical heart valves.QGBSQCLVVA0740-56-28 02:48:00 Test Item Value Reference Range Interpretation Comments FIBRINOGEN LEVEL (BEAKER) (test 421 mg/dl 225-434 code = 658) BLOOD GAS, [id number] 02:43:00 Test Item Value Reference Range Interpretation Comments PH VENOUS (BEAKER) (test code = 7.46 7.32-7.42 H 701) PCO2 VENOUS (BEAKER) (test code = 53 mmHg 41-51 H 755) PO2 VENOUS (BEAKER) (test code = 83 mmHg 25-40 H 702) O2 SATURATION VENOUS (BEAKER) 96.5 % 40.0-70.0 H (test code = 703) HCO3 VENOUS (BEAKER) (test code = 37 mmol/L 21-29 H 705) BASE EXCESS VENOUS (BEAKER) (test 11.7 mmol/L -2.0-3.0 H code = 704) PATIENT TEMPERATURE (BEAKER) 37.0 C (test code = 1818) FIO2 (BEAKER) (test code = 1819) 21.0 % CBC W/PLT COUNT & AUTO [id number] 02:43:00 Test Item Value Reference Range Interpretation Comments WHITE BLOOD CELL COUNT (BEAKER) 4.4 K/ L 4.0-10.0 (test code = 775) RED BLOOD CELL COUNT (BEAKER) 3.13 M/ L 4.00-5.00 L (test code = 761) HEMOGLOBIN (BEAKER) (test code = 9.8 GM/DL 12.0-15.0 L 410) HEMATOCRIT (BEAKER) (test code = 29.0 % 36.0-45.0 L 411) MEAN CORPUSCULAR VOLUME (BEAKER) 92.9 fL 82.0-99.0 (test code = 753) MEAN CORPUSCULAR HEMOGLOBIN 31.3 pg 27.0-33.0 (BEAKER) (test code = 751) MEAN CORPUSCULAR HEMOGLOBIN CONC 33.6 GM/DL 32.0-36.0 (BEAKER) (test code = 752) RED CELL DISTRIBUTION WIDTH 15.3 % 10.3-14.2 H (BEAKER) (test code = 412) PLATELET COUNT (BEAKER) (test 113 K/CU MM 150-430 L code = 756) MEAN PLATELET VOLUME (BEAKER) 9.8 fL 6.5-10.5 (test code = 754) NUCLEATED RED BLOOD CELLS 0 /100 WBC 0-0 (BEAKER) (test code = 413) NEUTROPHILS RELATIVE PERCENT 61 % (BEAKER) (test code = 429) LYMPHOCYTES RELATIVE PERCENT 23 % (BEAKER) (test code = 430) MONOCYTES RELATIVE PERCENT 11 % (BEAKER) (test code = 431) EOSINOPHILS RELATIVE PERCENT 4 % (BEAKER) (test code = 432) BASOPHILS RELATIVE PERCENT 1 % (BEAKER) (test code = 437) NEUTROPHILS ABSOLUTE COUNT 2.65 K/ L 1.80-8.00 (BEAKER) (test code = 670) LYMPHOCYTES ABSOLUTE COUNT 1.01 K/ L 1.48-4.50 L (BEAKER) (test code = 414) MONOCYTES ABSOLUTE COUNT (BEAKER) 0.48 K/ L 0.00-1.30 (test code = 415) EOSINOPHILS ABSOLUTE COUNT 0.19 K/ L 0.00-0.50 (BEAKER) (test code = 416) BASOPHILS ABSOLUTE COUNT (BEAKER) 0.05 K/ L 0.00-0.20 (test code = 417) 0.00LACTIC ACID, VENOUS, WHOLE [id number] 02:35:00 Test Item Value Reference Range Interpretation Comments LACTATE BLOOD VENOUS (2) (BEAKER) 0.8 mmol/L 0.5-2.2 (test code = 2872) Effective 10/23/2015: Units/Reference Range ChangeNew: 0.5-2.2 mmol/L Previous: 5-20 mg/dLSpecimen slightly guahegvAFQQGSCAFELJ4388-01-59 11:32:0014.6[facility] TflowceUPCYIGUYAWTH4648-50-76 11:32:0033[facility] DjmozppIQJDDSTWRZVM1439-70-49 11:32:008.3[facility] MwjwnrgGHPUSKXKECSW0761-76-58 11:32:0081[facility] BNGEUZNARRIW4849-54-17 11:32:001.95[facility] LgraojoBFHREBWVNFZJ8545-89-24 11:32:0055[facility] SaestwxZZSRGRUGMSYG2586-81-37 11:32:0019[facility] RLRQZEJWYOPF1498-94-79 11:32:83468Jzzckjin RysovzwBSOJZNPWKMSS8956-23-62 11:32:50678Uynwdcqf DpojdhnMNGAEVZZASCP3641-40-68 11:32:004.6[facility] FYUFOVITEB5894-28-11 11:32:0030.4[facility] MqbbdxbBSKINHVRUK7406-81-78 11:32:00 4.5[facility] HxfwouzAMRPEDFEJZ6585-53-24 11:32:0013.7[facility] HermannHEMATOLOGY 2016-07-30 11:32:002.6[facility] ZjfhwhwDDUTIFNKVT5564-74-10 11:32:000.7[facility] PizdjenWJLVQGKZBO4572-57-81 11:32:000.7[facility] EowewjcNAPTAWRVGE4979-24-39 11:32:001.6[facility] TsyjfcyJSLKXUCJOC5638-09-67 11:32:000.2[facility] UBHWRMZZOX1422-38-32 11:32:0050.7[facility] LjrpiztWNCSEJBIKP6476-17-30 11:32:00 28.1[facility] CccizueXVWCMJCAQC9114-26-83 11:32:003.39[facility]annHEMATOLOGY 2016-07-30 11:32:008.9[facility] HlpazjbQDSPQIVCOO6385-71-22 11:32:005.1[facility] FnkwbowHXGBLIZYKR7463-59-85 11:32:0011.3[facility] QzbisvaVOEOBVCZLU6388-79-28 11:32:75544Oufwqkry WcpcaqsHZRYOKAOXO8058-14-38 11:32:0031.8[facility] BHRMWJBNFM5825-03-98 11:32:0018.0[facility] FncmrkrAHVSKVKVKJ4761-96-08 11:32:00 83.0[facility] OlodrbzKNXCISBVOT7683-74-97 11:32:00 Test Item Value Reference Range Interpretation Comments MCH (test code = MCH) 26.4 pg 27.0-31.0 [facility] WwxnpbcLDCDSNUYKH1161-52-89 11:32:03850Vrcqomac HermannIMMUNOLOGY 2016-07-30 11:32:00Negative *NA*(07/30/16 5:32 AM)[facility] HermannIMMUNOLOGY 2016-07-29 11:05:00Negative *NA*(07/29/16 5:05 AM)[facility]annIMMUNOLOGY 2016-07-29 11:05:0092[facility] HermannCHEM KDTLC4447-45-41 15:50:0025[facility] HermannCHEM BOADB8298-22-33 15:50:0055[facility] HermannCHEM AKELA2328-81-70 15:50:0023[facility] HermannCHEM OGZKO7018-56-60 15:50:90760Qomlmarq HermannCHEM SADIV2669-26-77 15:50:39138Pipeiarg HermannCHEM SXELF0333-33-78 15:50:004.0 [facility]annCHEM NWZKB5202-51-53 15:50:93986Zbgjtxnh HermannCHEM PANEL 2016-07-28 15:50:0013.0[facility] HermannCHEM TTNRI4694-62-39 15:50:007.7[facility] HermannCHEM UDSRG5193-23-23 15:50:002.49[facility] UyolizkPCHZNSKIHG2108-03-85 15:50:00 Test Item Value Reference Range Interpretation Comments PT (test code = PT) 14.8 s 12.0-14.7 [facility] SblbkqmJRZWJQRNRD9989-94-63 15:50:00 Test Item Value Reference Range Interpretation Comments PTT (test code = PTT) 40.8 s 22.9-35.8 [facility] FjtggcwNMAYRMLYLO4251-49-39 15:50:001.14[facility] HermannIMMUNOLOGY 2016-07-28 15:50:0094[facility] JkugifsJYCHLGHJUX7990-89-67 10:35:001.7[facility] KnctvnhCWZIAMQAWZ1435-42-84 10:35:002.7[facility] FwkwxfpPHZBPAPHBB2750-40-91 10:35:000.1[facility] DsejlbtZEJNOELSMC6918-40-01 10:35:000.7[facility] ADEXUFSNJD3771-25-22 10:35:0051.3[facility] LhfdfqbZSTWOVQARY3285-20-28 10:35:00 31.6[facility] RyycoqfFLCUXKCEFC4469-82-91 10:35:0014.1[facility] HermannHEMATOLOGY 2016-07-28 10:35:002.6[facility] WzfbndsPCLDPKYJIF3842-65-75 10:35:000.4[facility] WywoesxEXGWCJJRON2808-72-50 10:35:0029.3[facility] ZdtcvleVBXVADOOQL9750-73-27 10:35:009.2[facility] PqvurxnDMTDNOHTAJ7219-10-00 10:35:003.54[facility] UDEVYXOEIT3871-30-92 10:35:005.3[facility] TxycjpdQMHYSTXFDX5849-63-86 10:35:0087 [facility] BdmkfrqMWZYCLHTQO1805-01-38 10:35:0031.4[facility] HermannHEMATOLOGY 2016-07-28 10:35:0017.9[facility] PdtgxwoNBGDJBJAUE2684-30-26 10:35:0010.9[facility] KkgtkqnNFKWLXCVEU1727-11-51 10:35:00 Test Item Value Reference Range Interpretation Comments MCH (test code = MCH) 26.0 pg 27.0-31.0 [facility] KvvczzxUJBDPDZJYV5553-10-03 10:35:0082.8[facility] HermannIMMUNOLOGY 2016-07-28 10:35:00Negative *NA*(07/28/16 4:35 AM)[facility] HermannCARDIAC ENZYMES 2016-07-27 10:22:70815Mdhndfuz HermannCHEM LXSXL7645-03-72 10:22:007.8[facility] HermannCHEM HVRFZ7101-23-86 10:22:0021[facility] HermannCHEM KONDP7498-91-69 10:22:42482Gaevudet HermannCHEM GCWRU0241-72-95 10:22:003.8[facility] HermannCHEM MUADR7721-17-35 10:22:63958Uyodwbpx HermannCHEM DYQCS1333-63-34 10:22:000.4 [facility] HermannCHEM STCHH8967-36-48 10:22:0074[facility] HermannCHEM PANEL 2016-07-27 10:22:0019[facility] HermannCHEM LQAXT7034-67-28 10:22:005.2[facility] HermannCHEM MWUDY1099-02-23 10:22:70121Pcarfoin HermannCHEM TPJTY4668-10-48 10:22:21805Ziwrqzzs HermannCHEM BKWQR1321-18-65 10:22:001.8[facility] HermannCHEM MUJDY7358-87-39 10:22:0054[facility] HermannCHEM KZFNF6474-71-95 10:22:13707 [facility] HermannCHEM CQAPU5472-17-42 10:22:003.11[facility] HermannCHEM PANEL 2016-07-27 10:22:0017[facility] HermannCHEM OVHDK0966-03-22 10:22:0016.8[facility] HermannCHEM OIHHR6256-29-65 10:22:003.4[facility] HermannCHEM ACUFD3470-07-69 10:22:000.5[facility] HermannCHEM PTKYV2657-76-12 10:22:002.0[facility] HermannCHEM WBVDN2235-35-07 10:22:003.7[facility] AfonrdxPCUGWAAVOS5115-88-86 10:22:0017.7 [facility] AnysbsyJTHSEIHZKP4937-10-34 10:22:0032.9[facility] HermannHEMATOLOGY 2016-07-27 10:22:0025.4[facility] PczuoybUEXVSIVQUS4905-54-21 10:22:00 Test Item Value Reference Range Interpretation Comments MCH (test code = MCH) 26.4 pg 27.0-31.0 [facility] QweftdyOOVJBHFBYU0142-86-10 10:22:0080.3[facility] HermannHEMATOLOGY 2016-07-27 10:22:0011.4[facility] RqukaeaIYSUMGICZK6796-59-08 10:22:0074[facility] VncwstoWWLWLDQJFA9310-87-75 10:22:003.16[facility] LxeyoyiIVNUSTQHEG7039-35-55 10:22:005.3[facility] OfujgiePJZTXFIHEV1459-25-65 10:22:008.4[facility] FCEMCGBIZU8613-74-96 10:22:0014.5[facility] OvjgmkfHQLCNNZWCF8221-60-48 10:22:00 29.8[facility] AietehwZSDIMJMQPP4056-92-59 10:22:000.1[facility] HermannHEMATOLOGY 2016-07-27 10:22:000.8[facility] GwylwpjZDHYEFXWAY9858-48-29 10:22:002.9[facility] IzdrvltILAULFHQMK7976-59-24 10:22:001.6[facility] PskapjpYIOXTFJTQQ2994-35-54 10:22:000.4[facility] EzorzcuKVMWBAQPHR5267-16-33 10:22:001.2[facility] GKWSLEHROT8447-24-24 10:22:0054.1[facility] HermannSPECIAL YUZPRASEK5164-06-35 10:22:008.9[facility] HermannCARDIAC GIPQSGY7169-90-96 17:40:54262Xjgcmbtl [place] QSIRJRTJVM7575-24-13 17:40:00Positive *ABN*(07/26/16 11:40 AM)[facility] ECTZQDEJYI6337-14-40 17:40:00<0.2[facility] MbdhxzjGESEPXIKCX3453-34-16 17:40:00<0.2[facility] LflmwtmLERMMEPLJL0926-03-85 17:40:00<0.2[facility] AheqsryWKCTTDWQRN1703-92-26 17:40:00<0.2[facility] BxqjmolAYGSIGEYOO9464-20-69 17:40:00Negative (07/26/16 11:40 AM)[facility] QkdswxrNTSUAWAVRH5146-96-30 17:40:00 1:40 *ABN*(07/26/16 11:40 AM)[facility] HermannURINE NUQF2981-00-89 17:40:0021 [facility] PsztkqoYTEZMREXMR4986-57-68 14:00:001.11[facility] HermannHEMATOLOGY 2016-07-26 14:00:00 Test Item Value Reference Range Interpretation Comments PT (test code = PT) 14.5 s 12.0-14.7 [facility] LmfoynrFPQSTRUZHM1493-39-21 14:00:00Negative *NA*(07/26/16 8:00 AM) [facility] QdmfngqSLNPZDGGVJ5039-89-07 14:00:00Negative *NA*(07/26/16 8:00 AM) [facility] OrxtmsjKIIYQGVMTW4933-93-75 14:00:00Negative *NA*(07/26/16 8:00 AM) [facility] YvpiyyuISXICIRGOV7842-15-50 14:00:00Negative *NA*(07/26/16 8:00 AM) [facility] HermannCHEM SBAMN9657-33-63 10:42:0017[facility] HermannCHEM PANEL 2016-07-26 10:42:836523Hpeedcpp HermannCHEM ZVSYX3766-03-34 10:42:000.5[facility] HermannCHEM GATPB0942-45-12 10:42:000.3[facility] HermannCHEM RDQDH7280-44-81 10:42:0079[facility] HermannCHEM UGJLK9606-77-46 10:42:49533Qvfwdtti HermannCHEM MQDVX7701-46-92 10:42:005.5[facility] HermannCHEM VOSHU8144-66-72 10:42:003.7 [facility] HermannCHEM HWUFC3451-93-56 10:42:001.8[facility] HermannCHEM PANEL 2016-07-26 10:42:002.1[facility] AlckhnzZDDHPIZGBX5100-68-71 10:42:00Present *ABN*(07/26/16 4:42 AM)[facility] QflvrqeFWJQWWCRSJ7981-11-08 10:42:001+ *ABN*(07/26/16 4:42 AM)[facility] JmsltnqGEWSPXPXTZ0293-83-95 10:42:000.1[facility] LxspjaxJMBEOVOMHH9448-48-54 10:42:00Moderate *ABN*(07/26/16 4:42 AM)[facility] StysjobNANXODTEMS2785-65-57 10:42:0042[facility] HermannURINE AND LVJKK6764-26-79 16:34:001[facility]annURINE AND BEQZF6225-65-31 16:34:004[facility] URINE AND DWGNC8936-25-24 16:34:00Negative (07/25/16 10:34 AM)[facility] URINE AND MNHQJ1339-39-48 16:34:00Negative (07/25/16 10:34 AM)[facility] URINE AND WWCEN1251-17-53 16:34:002[facility] HermannURINE AND SXHEW8460-86-68 16:34:006[facility]annURINE AND XRXLI6776-93-86 16:34:002.0[facility] URINE AND EJVFI9027-19-06 16:34:00Negative (07/25/16 10:34 AM)[facility] URINE AND SLEDA0955-70-80 16:34:00Negative *NA*(07/25/16 10:34 AM)[facility] URINE AND MZTBA6636-55-80 16:34:001.012[facility]annURINE AND YHIWS8839-52-07 16:34:005.5[facility]annUR[facility] AND AOXCG4911-61-64 16:34:00Slight *ABN*(07/25/16 10:34 AM)[facility]ann[facility] AND VFCPG4361-24-17 16:34:00Dark Yellow *NA*(07/25/16 10:34 AM)[facility]annUR[facility] AND UCWAF7863-29-45 16:34:009 [facility]annURINE GYCT0337-17-96 16:34:0030[facility]annUR[facility] CHEM 2016-07-25 16:34:003.1[facility]annURINE VYKT3394-15-70 16:34:07199.9[facility]annURINE JYRC5927-62-43 16:34:36333.00[facility] HermannCHEM RJABR3085-74-15 08:55:002.0[facility] HermannCHEM LBFKF5172-65-32 08:55:005.2[facility] CARDIAC QQCFRMP6897-26-14 17:29:000.28[facility] HermannCARDIAC XQKXYUT8141-45-01 17:29:362978Lguwkjdq HermannCARDIAC YFJNVTJ5420-15-37 17:29:000.144[facility] HermannCARDIAC OWHFPSY3314-02-56 17:29:000.2[facility] HermannCARDIAC ENZYMES 2016-07-24 17:29:006.3[facility] HermannCARDIAC CZSPUGC5775-78-05 11:20:000.38 [facility] HermannCARDIAC BPNPQDO6766-05-35 11:20:000.173[facility] HermannCARDIAC QWNZBZL3099-01-67 11:20:000.2[facility] HermannCARDIAC QOKYXWT0023-05-90 11:20:00 5.6[facility] HermannCHEM GENZA7137-95-84 11:20:005.5[facility] HermannCARDIAC XRTGODK0425-20-14 06:18:72925Ycsyuouk HermannCARDIAC LYBDYOQ3680-18-00 04:59:27 0.57[facility] HermannCARDIAC FTNSLFF8778-81-31 10:22:24029Pilmaclq HermannCHEM AFNLP7513-21-60 10:22:002.1[facility] HermannCHEM IDAWC1935-24-81 10:22:40991 [facility] HermannCHEM KZIFR2092-13-47 10:22:0041[facility] HermannCHEM PANEL 2016-06-15 10:22:002.00[facility] HermannCHEM TUUDP2873-86-86 10:22:009.0[facility] HermannCHEM YUTQN1392-40-45 10:22:17346Xcwbzpdj HermannCHEM UMIGU4762-72-34 10:22:0033[facility] HermannCHEM CWRUC1772-60-40 10:22:39053Vpklorza HermannCHEM XGAFB0356-21-56 10:22:004.0[facility] HermannCHEM GIRIA1474-12-02 10:22:0032 [facility] HermannCHEM DFZHQ8738-87-87 10:22:0013.0[facility] HermannCHEM PANEL 2016-06-15 10:22:004.6[facility] RkgdjjhCEKFLUQUBC8391-51-40 10:22:003.68[facility] GsvpjmuNBAOVSDTEW1604-00-21 10:22:009.9[facility] BuorimmUXXLTPMGMT8640-07-89 10:22:00 Test Item Value Reference Range Interpretation Comments MCH (test code = MCH) 26.8 pg 27.0-31.0 [facility] SmedvtcCXXLFFONOO5928-11-56 10:22:0034.2[facility] HermannHEMATOLOGY 2016-06-15 10:22:0078.3[facility] DcfecjoPRJXUYOAEK8082-48-44 10:22:0028.8[facility] IlxvnyuJKYWDAASLO4021-17-80 10:22:09869Rdvkodla PbuczrfJQGXFKLSRB9504-81-03 10:22:009.5[facility] AegjldvHKXEDUSFSP5848-55-49 10:22:0015.3[facility] CWIBVNIXOU5752-48-15 10:22:005.6[facility] WsvclswDJVSDRTKRY1351-64-43 10:22:000.5 [facility] LxsagfmXOKWNBIXLS9511-42-30 10:22:001+ *ABN*(06/15/16 4:22 AM)[facility] OkxrnzbELTNDPVDXF8327-47-66 10:22:000.1[facility] FzmkcewOGTVAGTPZF6195-07-05 10:22:0033.5[facility] TrtehmfYHJXSUOAGQ1832-41-05 10:22:0047.6[facility] CLSZZUBWIY8313-44-66 10:22:008.4[facility] MgwwlmqIJUNNSKRTA4740-54-13 10:22:009.4 [facility] EqatdkiPRPMGCJSNH9386-64-82 10:22:002.6[facility] HermannHEMATOLOGY 2016-06-15 10:22:001.9[facility] ZrxaqltLQDCKIGEZJ4461-83-49 10:22:001.1[facility] IzxbzjaEGFKRGFYXY5157-74-82 10:22:000.5[facility] HermannCHEM TDYMT6481-12-68 11:03:004.8[facility] HermannCHEM JWUCX3407-49-89 11:03:002.0[facility] HermannCHEM PJAQY3391-37-67 11:03:0032[facility] HermannCHEM AMXRI1546-37-73 11:03:94301 [facility]annCHEM CONXM0269-93-71 11:03:004.4[facility] HermannCHEM PANEL 2016-06-14 11:03:0037[facility] HermannCHEM EIQRD8613-76-20 11:03:84211Dynwnhug HermannCHEM XNRRR2884-79-96 11:03:002.00[facility] HermannCHEM YJUUG9278-65-18 11:03:54038Pzvcwcqa HermannCHEM ZXPYN1191-92-26 11:03:008.7[facility] HermannCHEM LHUXA8705-23-23 11:03:0032[facility] HermannCHEM SKTFX9967-49-62 11:03:0013.4 [facility] ZpbvlntYOFSXOYZOW6115-92-54 11:03:0010.3[facility] HermannHEMATOLOGY 2016-06-14 11:03:000.1[facility] XqfgymcJTBICWQANU5323-98-64 11:03:000.5[facility] OkhvottJRGRZSNTVW8513-12-71 11:03:000.5[facility] RsxalzxNOYUCLMYTK5858-13-82 11:03:002.1[facility] UfhfuaoGQSOSDIKXZ4875-45-64 11:03:001.2[facility] QXNOQSYWMN0705-43-38 11:03:001.9[facility] GbyqpmfEPJMNSUXNQ9558-82-78 11:03:00 42.5[facility] NitexfnMVFCHHRWFJ7531-08-32 11:03:0037.0[facility] HermannHEMATOLOGY 2016-06-14 11:03:009.0[facility] IrifuhgNVKYILUBLT4865-87-08 11:03:009.8[facility] JglchijGCROFKRZVD2649-78-27 11:03:005.0[facility] TmfwxzrVIWGCYTAQB5835-90-37 11:03:003.57[facility] TwggfgePHSCVDOOFC4197-82-37 11:03:009.4[facility] APEEASEKLP7783-32-19 11:03:0028.5[facility] CkypgiqQEXRPGMZJR6249-31-72 11:03:00 183[facility] RszjtidCRAAQVLZTI2197-35-06 11:03:0079.9[facility] HermannHEMATOLOGY 2016-06-14 11:03:00 Test Item Value Reference Range Interpretation Comments MCH (test code = MCH) 26.3 pg 27.0-31.0 [facility] XmcidytBVVCIRXGKU6873-77-27 11:03:0033.0[facility] HermannHEMATOLOGY 2016-06-14 11:03:0015.9[facility] HermannURINE GCZQ8891-69-87 10:26:006.9[facility]annURINE BBBG3581-65-37 10:26:0019.30[facility]annURINE VBEW4012-97-98 10:26:94351.1[facility] NiaofcuMIZROUENGT2831-85-43 09:20:009.7[facility] DZIJOYJVHU3336-10-20 09:20:50129Arpjavpa YafvcbmPTIMYXMOST0560-67-97 09:20:00 15.9[facility] JswibguILFIBGVVVS3191-03-35 09:20:0079.3[facility] HermannHEMATOLOGY 2016-06-13 09:20:0033.0[facility] TrvaavtYXEKKHNFJN0333-47-54 09:20:00 Test Item Value Reference Range Interpretation Comments MCH (test code = MCH) 26.2 pg 27.0-31.0 [facility] LdqqoxoTWYYNAOZNB3364-60-71 09:20:0029.4[facility]annHEMATOLOGY 2016-06-13 09:20:009.7[facility] YosjnppNAUEUHLQOC6746-64-81 09:20:003.70[facility] UytuqhpXGPLULXAMY6575-80-05 09:20:005.7[facility] CkwasfxBXASXFHMGM1806-62-13 09:20:000.1[facility] JrguqocPWBCDKEWLF8453-19-31 09:20:002.2[facility] Vin VCDIOGYDON7678-84-72 09:20:000.5[facility] MxmonzdGTYMJDGHAX6568-82-03 09:20:000.5 [facility] TsumsnjAGEMMQYBVA1760-47-00 09:20:001.1[facility]annHEMATOLOGY 2016-06-13 09:20:002.3[facility] NaeejwjLHYJAAFMHA6268-06-06 09:20:009.5[facility] AqdthciSWUAJVXMDP5259-13-02 09:20:009.0[facility] FlhpbmjBWTZASGXBJ4689-81-04 09:20:0038.9[facility] VcidbalFQGWIQLNCB3745-40-88 09:20:0041.5[facility] CHEM BCYVI3730-61-22 06:34:001.7[facility] HermannCHEM CYXFL6210-46-82 06:34:004.2 [facility] WcmcmggBLBQBGLBWWEX4519-42-92 06:34:0014.3[facility] HermannELECTROLYTES 2016-06-13 06:34:0041[facility] UrvjhjyEPABIXGJSKCA8553-63-69 06:34:75481Ygghgaps MvznzbiIZNLKTYUOHGN9606-88-05 06:34:008.5[facility] DcyqopsZUIWRUSRGHTD6638-49-21 06:34:0032[facility] BhlymipLJQQPIZTDWJC8506-98-99 06:34:23465Igfblzkv Vin VISZHMTWELCQ0937-94-57 06:34:0037[facility] QddavvoWHTYTSNKUBLW2324-11-74 06:34:00 1.63[facility] ZaqqczgEECRKEKROWFZ1472-48-25 06:34:004.3[facility] PAOUJFJYXMVB7753-14-53 06:34:03851Secjxstx HermannCHEM FDDVV2755-32-25 16:21:00 48.0[facility] ZauclaaBVOYJDTTSJ6502-25-35 14:56:001:40 *ABN*(06/11/16 8:56 AM) [facility] ZornzmpCYUSLAMTDI5448-76-69 14:56:00Negative *NA*(06/11/16 8:56 AM) [facility] XponuauUGYRXAGFBA8388-59-01 14:56:00Negative *NA*(06/11/16 8:56 AM) [facility] FdikfftXQUDHLNUMB0566-00-86 14:56:00Negative *NA*(06/11/16 8:56 AM) [facility] FeaooijQJTWOKCVKE7082-79-48 14:56:00Negative *NA*(06/11/16 8:56 AM) [facility] LbavnxsSPVMWRFKIN7190-55-32 14:56:00Negative *NA*(06/11/16 8:56 AM) [facility] NrlernaRIMTMVMZVY7843-90-91 14:56:00Positive *ABN*(06/11/16 8:56 AM) [facility]annCHEM YAHFL9073-29-08 10:42:000.1[facility] HermannCHEM PANEL 2016-06-11 10:42:005.2[facility]annCHEM NSZPF4541-61-89 10:42:001.6[facility]annCHEM CYMRZ7415-83-02 10:42:0020[facility]annCHEM XOXQU1268-74-94 10:42:003.6[facility]annCHEM CHGLO5954-31-60 10:42:000.4[facility] HermannCHEM BBOTT9694-79-10 10:42:0074[facility]annCHEM LUAXU2142-50-70 10:42:0014 [facility]annCHEM ZORWI4919-32-95 10:42:0013[facility]annHEMATOLOGY 2016-06-11 10:42:001.06[facility] XbiawfdGZZROJHLMQ3408-87-62 10:42:00 Test Item Value Reference Range Interpretation Comments PT (test code = PT) 14.0 s 12.0-14.7 [facility] FckmudrVIRFVPSOCY9889-42-37 10:42:00 Test Item Value Reference Range Interpretation Comments PTT (test code = PTT) 36.4 s 22.9-35.8 [facility] HermannSPECIAL TZNICLVRD1229-14-20 10:42:0010.5[facility] HermannCARDIAC POEJRAX0376-77-99 02:08:001.8[facility] HermannCARDIAC VVBRSKV9434-60-31 02:08:00 2.9[facility] HermannCARDIAC QYWIJAD4116-36-99 02:08:000.061[facility] CARDIAC UORPYPX5736-54-79 02:08:73442Itwtawzl HermannCARDIAC JNUQNFM7938-07-29 02:08:00<0.02[facility] HermannCHEM MKOLT2555-93-81 02:08:000.2[facility] CHEM ERCWU8538-97-93 02:08:000.1[facility] HermannCHEM WKJDE4113-90-86 02:08:000.1 [facility]annCHEM FVHBC4885-38-86 02:08:005.7[facility] HermannCHEM PANEL 2016-06-11 02:08:000.5[facility] HermannCHEM VPXPX8821-16-10 02:08:001.8[facility] HermannCHEM FSYJU5596-42-44 02:08:003.9[facility] HermannCHEM MFIIG1516-03-34 02:08:0099[facility]annCHEM BFFJS0695-42-48 02:08:0021[facility] HermannCHEM SBTUS6016-74-41 02:08:0017[facility] HermannDRUG KMAVTS7939-77-66 02:08:00See Note *NA*(06/10/16 8:08 PM)[facility] HermannDRUG HBIWRB5920-41-70 02:08:00Negative *NA*(06/10/16 8:08 PM)[facility] HermannDRUG WJJRSG2495-73-15 02:08:00Negative *NA*(06/10/16 8:08 PM)[facility] HermannDRUG HXMSCQ9450-39-50 02:08:00Negative *NA*(06/10/16 8:08 PM)[facility]annDRUG TQYZKA3076-16-22 02:08:00Negative *NA*(06/10/16 8:08 PM)[facility]annDRUG WKOYSB0348-76-78 02:08:00Negative *NA*(06/10/16 8:08 PM)[facility] HermannDRUG DWQQIB9483-38-38 02:08:00Negative *NA*(06/10/16 8:08 PM)[facility]annDRUG TJGFOH8560-79-50 02:08:00Negative *NA*(06/10/16 8:08 PM)[facility] HermannDRUG WPRNNL4013-50-69 02:08:00Negative *NA*(06/10/16 8:08 PM)[facility] HermannDRUG YTGUFV4035-51-27 02:08:00Negative *NA*(06/10/16 8:08 PM)[facility] MmolxwnHUWUQS0433-26-09 02:08:0075[facility] VoixkpkZVAQAA9995-12-98 02:08:0027[facility] CfalfksAHVRID6863-52-84 02:08:51978 [facility] WdpomndHUFJEX4309-04-84 02:08:69204Sfyqmnfo KuouclvXARHEO6789-86-46 02:08:004.29[facility] ToowvfuPSQEQH9666-05-84 02:08:0031[facility]annURINE AND TGZRZ3365-24-34 02:08:006.0[facility]annURINE AND EHUQM1559-16-95 02:08:00 Negative (06/10/16 8:08 PM)[facility]annURINE AND KVAYH6434-71-49 02:08:00 Trace *ABN*(06/10/16 8:08 PM)[facility]annURINE AND POQUO9865-72-43 02:08:00 Negative *NA*(06/10/16 8:08 PM)[facility]annURINE AND OECUD1968-37-09 02:08:004[facility]annURINE AND BWNKM8775-56-42 02:08:005[facility] URINE AND CZFGY6067-35-73 02:08:00Small *ABN*(06/10/16 8:08 PM)[facility] URINE AND YYRPM7808-56-81 02:08:001[facility]annURINE AND ZRTYV5959-86-67 02:08:001.009[facility]annURINE AND XVDVI6054-56-16 02:08:00Yellow *NA*(06/10/16 8:08 PM)[facility]UR[facility] AND HOBKE7968-52-78 02:08:00Clear (06/10/16 8:08 PM)[facility]annURINE SIIJ3414-97-08 02:08:00Negative (06/10/16 8:08 PM)[facility]annURINE LIOH0495-92-29 02:08:15773.4[facility]annURINE OZZM7913-25-11 02:08:005.4[facility]annURINE EMSJ5589-75-06 02:08:0069.80[facility] HermannCARDIAC BOPBCLF9400-64-35 16:53:352823Qhadfndi HermannCARDIAC SFAIWRO1045-83-25 16:53:00<0.02[facility] HermannCHEM PANEL 2014-06-26 13:02:000.9[facility] DidvowpNEJDJOTDIF5059-86-48 12:29:4410[facility] EdknexaABTXOFEHDLGHS2876-11-59 11:21:271[facility] HermannCHEM LMCPK8359-13-39 11:21:003.2[facility] HermannCHEM PRXMQ2262-17-33 11:21:006.6[facility] HermannCHEM XGQWQ7223-79-75 11:21:000.6[facility] HermannCHEM VZFMC2732-64-09 11:21:0059 [facility]annCHEM ELOEJ3715-14-12 11:21:0011[facility] HermannCHEM PANEL 2014-06-26 11:21:0017[facility] HermannCHEM XGJFS3710-06-42 11:21:0099[facility]annCHEM XSKTV5135-20-38 11:21:79626Aqgjwmev HermannCHEM QFQCJ4415-53-85 11:21:003.4[facility] HermannCHEM PQMNK1084-67-39 11:21:0011[facility] HermannCHEM OHXGU7691-02-42 11:21:000.8[facility] HermannCHEM WADNU5820-71-61 11:21:41761 [facility]annCHEM KXVRV9887-29-78 11:21:0094[facility] HermannCHEM PANEL 2014-06-26 11:21:009.1[facility] HermannCHEM FFAPE8923-95-52 11:21:0024[facility] HermannCHEM ARHXD4255-41-65 11:21:000.9[facility] HermannCHEM YGILF2602-37-97 11:21:003.4[facility] HermannCHEM BGMGV4530-73-78 11:21:0014[facility] HermannCHEM JAKCS2634-55-78 11:21:0019.4[facility] HermannCHEM NGIPE7924-25-25 11:21:0081 [facility] OzarvrsFVOTHNORBW5553-19-07 11:21:000.0[facility] HermannHEMATOLOGY 2014-06-26 11:21:001+ *ABN*(06/26/14 5:21 AM)[facility] NzpqcfnUPXPMSEQXH4120-20-84 11:21:000.6[facility] WtamwqzSGWOBMNNYW8415-02-35 11:21:000.1[facility] PEBTZWKTZW1458-23-75 11:21:002.5[facility] IeffrvzAVVXOKYVRQ4455-47-72 11:21:00 63.3[facility] MrjihgmDSKOIFFGLY5414-30-22 11:21:005.6[facility] HermannHEMATOLOGY 2014-06-26 11:21:000.0[facility] NquyehwTXHCWYSMNR3999-22-45 11:21:000.9[facility] TkiqtihKMSCATYGVC5092-81-97 11:21:007.0[facility] NtnshzjFDQPPVJBGW9325-48-78 11:21:0028.8[facility] TvdisywJKHQDMDVFF4126-19-59 11:21:008.8[facility] NIJGVMWFQT7344-89-82 11:21:005.19[facility] NrdbwkcMOAVGRBDHO7132-31-18 11:21:00 14.4[facility] ZdyrlrfTRBXVAATRE9153-90-65 11:21:0043.1[facility] HermannHEMATOLOGY 2014-06-26 11:21:0083.1[facility] ZsswkgbDAFXYXPIEF3042-54-52 11:21:00 Test Item Value Reference Range Interpretation Comments MCH (test code = MCH) 27.8 pg 27.0-31.0 [facility] BjbmdyiIFWQLUBBXM4712-07-96 11:21:0013.1[facility] HermannHEMATOLOGY 2014-06-26 11:21:0033.5[facility] NqumtuoDIAONVMKJU5658-72-47 11:21:68753Mxxrxxjx UtnlsogDATJHRHKZJ2161-51-96 11:21:0010.4[facility] DegwffaUOLJADXDDI9679-40-31 04:48:55Performed (04/14/2013 23:48:55)[facility] PllibhzLRPPGCLYBT8511-42-78 04:48:55Negative *NA*(04/14/2013 23:48:55)[facility] GzpnoetSIPRSPQDAD4229-77-00 04:48:55Trace *ABN*(04/14/2013 23:48:55)[facility] RupaboeRMKHJMXMPQ5601-83-40 04:48:55Negative (04/14/2013 23:48:55)[facility] YyoqchmZKCXQPWKMN1862-12-29 04:48:550.2[facility] SnnzbevJNIUKVEKFI3542-81-28 04:48:55Negative (04/14/2013 23:48:55)[facility] OnxnxtfXLJQFUIMXK8875-32-40 04:48:55Negative (04/14/2013 23:48:55)[facility] CltbmtnZLCJXIURQG8191-57-20 04:48:55Clear (04/14/2013 23:48:55)[facility] LphpecnPHCSQYOGCK3607-01-56 04:48:55Yellow *NA*(04/14/2013 23:48:55)[facility] BpauhftDGSALGFPXP9172-92-54 04:48:55 Test Item Value Reference Range Interpretation Comments UA pH (test code = UA pH) 7.0 1 5.0-8.0 N [facility] XmphblaEFFKFJOGVV0576-48-65 04:48:55 Test Item Value Reference Range Interpretation Comments UA Spec Grav (test code = UA Spec 1.025 1 N Grav) [facility] GuzxokfEPGWMOTWFD0457-79-12 04:48:55Trace *ABN*(04/14/2013 23:48:55) [facility] UpiklqwIVXWJHFPV3505-02-62 04:28:00Negative *NA*(04/14/2013 23:28:00) [facility] LzoufvjUWUJALKGP9027-40-96 04:28:26799Ysajjjgm HermannCHEMISTRY 2013-04-15 04:28:004.1[facility] NjxguooMWAWCOOCD0525-73-92 04:28:0010.5[facility] EjptbpwRNTJPEGBQ2297-96-85 04:28:006[facility] HtieeyuEDPXEVGMS2699-85-51 04:28:00 0.7[facility] XzzntkbSBHOOCGFI5699-96-44 04:28:04714Coqfywoj HermannCHEMISTRY 2013-04-15 04:28:002.9[facility] YcyxfxlFLXKTAVMD8620-52-83 04:28:0020[facility] NzjoatiRHVPLYQDG7213-09-11 04:28:000.5[facility] FpqfvijQNINVNUSK5345-70-08 04:28:0089[facility] UxhoxgwHJVTDKORW7179-25-21 04:28:0011[facility] FWEKZHWTJ2628-79-55 04:28:000.5[facility] JtxlkonPBTVWZJJW5441-07-65 04:28:003 [facility] XfovgkvWPPUJXLJD1142-29-35 04:28:67757Vmauszhr HermannCHEMISTRY 2013-04-15 04:28:007.0[facility] GcfxidzYUPBFARDK7650-09-98 04:28:008.7[facility] LxwmopeOSBZSPDGV8966-05-83 04:28:0029[facility] GrupkwnSKEGYILYB5201-54-26 04:28:06168Jvykoeyx MhtilfaIOVOUWQQW1706-10-79 04:28:003.5[facility] RBVHVNWPG2417-85-42 04:28:86014Faijgbce LzbvjvwOVAAGWLXVJ0802-82-27 04:28:00 Test Item Value Reference Range Interpretation Comments PROTIME (test code = PROTIME) 12.1 s 12.0-14.7 N [facility] BckilclAGVNMPSXQR6322-93-56 04:28:00 Test Item Value Reference Range Interpretation Comments aPTT (test code = aPTT) 39.0 s 22.9-35.8 H [facility] HcqdbwqHONBQDECBD7315-73-28 04:28:000.90[facility] HermannHEMATOLOGY 2013-04-15 04:28:00 Test Item Value Reference Range Interpretation Comments MCH (test code = MCH) 29.4 pg 27.0-31.0 N [facility] SrexpcvDDVAVMZIFH0051-35-63 04:28:0086.1[facility] HermannHEMATOLOGY 2013-04-15 04:28:0029.4[facility] OzfvhowOCRSGKKXMH9798-48-10 04:28:0014.0[facility] PrhvogqGDUYQEQXWO6243-98-13 04:28:006.2[facility] YvajmusJMVYIBCRNE1874-53-99 04:28:78713Giqxveok BpbrqrtGHLKAFSJBT8315-95-49 04:28:0034.1[facility] ZPVCSBHDKJ1237-99-97 04:28:003.41[facility] GrpsmpiJPPQAVCLMY7451-58-97 04:28:00 10.0[facility] QzqsxwcTCZBSHFYKE8183-42-33 04:28:0010.1[facility] HermannHEMATOLOGY 2013-04-15 04:28:004.4[facility] DunchluIOJIKGJHYC1899-79-27 04:28:000.7[facility] DvpnhsuEGRERXXBKK1630-75-73 04:28:0070.7[facility] QfunsksYPYAWWRBVC8047-42-45 04:28:000.3[facility] MthunptIKZJDXRBCU4153-47-34 04:28:001.2[facility] XOZKDUCFPN4593-55-53 04:28:004.5[facility] JclknivSIYFOGLFNP8248-61-71 04:28:004.1 [facility] JfjtjxaXKRXWFQPUR4411-76-49 04:28:0020.0[facility] HermannHEMATOLOGY 2013-04-15 04:28:000.0[facility] ReotfnfNOARLHOLZY5977-20-74 04:28:000.3[facility] HermannBEDSIDE GLUCOSE OIJUMZJ4806-71-84 01:12:66815Honvvitq HermannURINALYSIS 2012-03-14 23:40:00Trace *ABN*(03/14/2012 18:40:00)[facility] HermannURINALYSIS 2012-03-14 23:40:00 Test Item Value Reference Range Interpretation Comments UA pH (test code = UA pH) 6.0 1 5.0-8.0 N [facility] PizqtsrXOZAOOJJYH2564-63-59 23:40:00>=80 mg/dL *NA*(03/14/2012 18:40:00)[facility] NqqzcbrOCMCFBGCGL2914-26-26 23:40:00>=1000 mg/dL *ABN*(03/14/2012 18:40:00)[facility] TtbwfohIKBBVVBCPX8908-52-69 23:40:00Negative (03/14/2012 18:40:00)[facility] YzomdvkEBQBEFATXQ4571-14-69 23:40:00Negative (03/14/2012 18:40:00)[facility] ScjxxvpOWZNYQTEYW2209-39-00 23:40:000.2[facility] QjzmpvvWORXXKPPGF8953-60-69 23:40:00Negative (03/14/2012 18:40:00)[facility] RgyihnbULORCATHHF6778-91-69 23:40:00Negative *NA*(03/14/2012 18:40:00)[facility] KthqjqyVHFNORTBDJ9664-93-89 23:40:00Clear (03/14/2012 18:40:00)[facility] FJDHCGZMNS3792-52-08 23:40:00Yellow *NA*(03/14/2012 18:40:00)[facility] AIGUMMVADI7737-56-73 23:40:00>=1.030 *ABN*(03/14/2012 18:40:00)[facility] TuwjbkcQSDXYUHZAG8019-40-79 23:40:00Occasional /LPF (03/14/2012 18:40:00) [facility] ByarfgmHGHJVFCTGB7362-48-15 23:40:003-5 /HPF (03/14/2012 18:40:00) [facility] SakecjaQGTLDKMDIH1291-58-08 23:40:00Occasional /HPF (03/14/2012 18:40:00)[facility] AbcxseaHNNWYKPQE0298-78-88 22:50:00Negative *NA*(03/14/2012 17:50:00)[facility] VcetbawFMJXWJDZS5861-72-33 22:50:0045[facility] HermannCHEMISTRY 2012-03-14 22:50:001.2[facility] GwbbxxhIZZAEJSPD5553-87-99 22:50:003.8[facility] AorrnmrBVXTRRZJC6593-04-42 22:50:0021[facility] ZwzcljhTGSAWECGW5994-69-94 22:50:0016.8[facility] UqursciZTRVYJQMG8067-35-69 22:50:001.1[facility] CYJDFIKID4729-26-74 22:50:008.2[facility] WnbycqnIKJEOMACX6614-01-33 22:50:003.8 [facility] IwbpsfqOJTOCXGNG1342-63-42 22:50:000.7[facility] HermannCHEMISTRY 2012-03-14 22:50:56359Cbaruagp MmtpboySZTDJUJBH8844-13-04 22:50:0099[facility] HvymozpDVQLPOWLZ3314-22-70 22:50:0027[facility] DdjlokzBYUNVHYHV0507-04-11 22:50:48629Dpvjrpfn EcxjongIZYEXJATA6145-54-56 22:50:0015[facility] TYMAKERZY6384-57-83 22:50:0024[facility] NcoxhlvNAHVYVGDP8076-27-06 22:50:0020 [facility] SzkbumgJCXXSYSSS1664-33-22 22:50:0067[facility] HermannCHEMISTRY 2012-03-14 22:50:004.4[facility] BofztqxFVZWCJQTH2092-14-43 22:50:009.9[facility] HfstimzVYQVWIIPBR3228-64-83 22:50:0011.8[facility] WezqrwmPFFRGNTLXK5748-87-33 22:50:0035.9[facility] YfdffujKMSWSCQKXT9401-23-75 22:50:00 Test Item Value Reference Range Interpretation Comments MCH (test code = MCH) 31.2 pg 27.0-31.0 H [facility] EnvjaaqSFGRRJKVVD7303-23-40 22:50:76862Skolxydv HermannHEMATOLOGY 2012-03-14 22:50:0013.1[facility] QrhgoweBTNEAUFTND2530-82-39 22:50:0040.7[facility] QexjtnjRSHXHSRPER7604-00-49 22:50:0014.6[facility] QoxxugwUQBATOLXMX0875-76-32 22:50:0087.0[facility] QzvpipeHMSAIIECIP8166-69-94 22:50:0011.7[facility] MRFFCTXSCC7654-17-66 22:50:004.68[facility] ItdiffcMIULWNBALU8502-20-47 22:50:00 0.0[facility] SqpdinjPDUMVDGBHB9037-86-20 22:50:000.2[facility] HermannHEMATOLOGY 2012-03-14 22:50:000.0[facility] RqsucbbFOQXHYUWUN0782-64-50 22:50:000.4[facility] JizzzvtOBKZFODOOD3514-82-17 22:50:0010.6[facility] KypnlscRRJQXUHHNB3545-24-66 22:50:000.7[facility] FwccqhbANVUQYUHCL5445-94-87 22:50:003.4[facility] DGXIKSRSBU3355-27-31 22:50:00Normal (03/14/2012 17:50:00)[facility] HJPVMDKRRP7050-55-23 22:50:006.0[facility] BiwsrzuTRTMTADEIV1654-25-83 22:50:000.0 [facility] QwpnfqeZJSLOFBNWU4071-87-25 22:50:0090.4[facility] HermannHEMATOLOGY 2012-03-14 22:50:00Normal (03/14/2012 17:50:00)[facility] PJBGWWO8698-17-47 23:43:12089Qeefdidz HermannBEDSIDE GLUCOSE ILJXMPB0102-70-77 17:40:03507Inspvoqm HermannBEDSIDE GLUCOSE DTHLLIE7946-55-39 13:34:29682Ortpesks RkdgjesSAQLUSIBT7986-02-04 00:00:00Negative (11/28/2011 19:00:00)[facility] TaylorCdffxhxYKTWKNDNBK9754-42-62 00:00:00Performed (11/28/2011 19:00:00)[facility] TaylorXnizxxkINWYKZHLCF8312-87-29 00:00:00Occasional /LPF (11/28/2011 19:00:00) [facility] TaylorCfwbzycZVDAZMTXOZ3263-40-72 00:00:00None Seen (11/28/2011 19:00:00) [facility] TaylorBtnojusRJEZWUMWLE5667-40-78 00:00:00Negative mg/dL (11/28/2011 19:00:00)[facility] TaylorRyjpgldSNETYRLKRX4080-44-85 00:00:00 Test Item Value Reference Range Interpretation Comments UA pH (test code = UA pH) 7.0 1 5.0-8.0 N [facility] OvhbfspZEKCYRXGSS6826-58-37 00:00:00 Test Item Value Reference Range Interpretation Comments UA Spec Grav (test code = UA Spec 1.020 1 N Grav) [facility] CnuqwfhNKIQNQRLTD2420-55-19 00:00:00Clear (11/28/2011 19:00:00)[facility] ZlexcbqCAMKLBXSMC2170-78-97 00:00:00Yellow *NA*(11/28/2011 19:00:00)[facility] AamjpdtGYZYJTFLDZ4553-04-83 00:00:000.2[facility] WbuytucTACZELCJPR1954-77-27 00:00:00Negative (11/28/2011 19:00:00)[facility] LtogyukZVFQKOCGWP2806-63-05 00:00:00Negative *NA*(11/28/2011 19:00:00)[facility] VwjskzdAAPKLQEMBW7290-65-33 00:00:00>=80 mg/dL *ABN*(11/28/2011 19:00:00)[facility] HermannURINALYSIS 2011-11-29 00:00:00>=1000 mg/dL *ABN*(11/28/2011 19:00:00)[facility] ZRVFJQMBJX5173-98-36 00:00:00Negative (11/28/2011 19:00:00)[facility] QMJMDBMWBF0196-36-91 00:00:00Negative (11/28/2011 19:00:00)[facility] FJYZAWCVY9323-08-41 20:41:0060[facility] LkxhlkpSLFOTRLGM2337-77-34 20:41:0041 [facility] RbpwhvaPFAVLFFTG0931-03-26 20:41:007.45[facility] HermannCHEMISTRY 2011-11-28 20:41:0037.0[facility] OoonokiRFBKFOXJX6085-03-05 20:41:0092.0[facility] DpawkxiLTXPTFKJI7648-66-88 20:41:004[facility] PnwafhhQMCOHWOHP8055-15-45 20:41:00 28.5[facility] HlyqujvYPQVWDPKA1079-80-51 20:00:001.6[facility] HermannCHEMISTRY 2011-11-28 20:00:25269Lfwybjwa TjqvdpkGCBMSAGAI7577-34-93 20:00:004.2[facility] IrmgcuvAHNONOTMH1218-58-39 20:00:0023[facility] RpqwxziNOLBLSKED3286-81-79 20:00:0098[facility] WwsqbqvEJGJHZGQX4330-54-04 20:00:003.8[facility] DVBOMUPXV9556-57-99 20:00:00937Ymaeojvk CruadevFJWWDZYAK8703-59-56 20:00:000.7 [facility] QnegppmGQZAIYLED7815-20-97 20:00:009[facility] MuvsvsuTBBAJFVRD1409-74-56 20:00:46551Snmsqwqc GfzqpizWOCNUXUAV5923-04-47 20:00:0013[facility] NAJSWRRMV3228-89-06 20:00:0020.8[facility] WpualrcJYYWCMXLN2785-55-41 20:00:009.3 [facility] WokpoltZRHPZODAR1407-88-89 20:00:006.7[facility] HermannCHEMISTRY 2011-11-28 20:00:001.7[facility] KbsaiqzDTVALTLFC9713-34-10 20:00:002.5[facility] MdcddhuNMWWSGJET8088-84-35 20:00:0018[facility] IfpnyopSKGVEAWMB8982-17-17 20:00:0062[facility] EeynirlOPNTENAHS8179-55-31 20:00:0032[facility] XOTXNMPSM9385-30-94 20:00:000.7[facility] VsvynupHCJJVXRIFM8846-71-31 20:00:001+ *ABN*(11/28/2011 15:00:00)[facility] HkvwrvsMKKGWYKEYO4522-90-61 20:00:000.1 [facility] KrqcbszOLJGLIXREB1502-20-01 20:00:000.0[facility] HermannHEMATOLOGY 2011-11-28 20:00:000.0[facility] ZqdlehnSUHMBLVIOB6415-99-54 20:00:00Slight *ABN*(11/28/2011 15:00:00)[facility] RvplgrwIXFOSGCSIY5857-11-80 20:00:00Slight *ABN*(11/28/2011 15:00:00)[facility] JtcnbvqSUTUZFSPBX5747-67-54 20:00:005.7 [facility] CvtlvehWUPIUWJPUL9115-66-87 20:00:000.8[facility] HermannHEMATOLOGY 2011-11-28 20:00:000.2[facility] SlxhbcpUFNVZAAKMR3870-41-15 20:00:000.0[facility] XvinufzCHIWDYYYDS8177-08-72 20:00:001.9[facility] DxrsaqmAVBQFSWSHN8087-36-68 20:00:0086.2[facility] NwoxxdmKQUARMIMLD8600-14-60 20:00:0011.7[facility] MLGXCSEKEG3204-71-91 20:00:0010.8[facility] SjbgdqwBXNYAOFROO0196-57-57 20:00:00 161[facility] ExlmmylITBLQLWIDW4706-88-89 20:00:0035.6[facility] HermannHEMATOLOGY 2011-11-28 20:00:0012.4[facility] VrybdxdFMGAMKLMER7260-53-14 20:00:00 Test Item Value Reference Range Interpretation Comments MCH (test code = MCH) 30.7 pg 27.0-31.0 N [facility] TpoxoxtUTKWWFASLC0168-26-82 20:00:0086.1[facility] HermannHEMATOLOGY 2011-11-28 20:00:0033.6[facility] DxyvwzpAOCCNIMHXK1030-89-75 20:00:0012.0[facility] QnhpjudCQKYWZYDNO2210-89-57 20:00:003.90[facility] OdfpffeBANZZJWSLZ3200-53-71 20:00:006.6[facility] QujmpmbKTHDJGZRV3668-39-55 19:51:00See Note 5*NA*(11/28/2011 14:51:00)[facility] StizojdIXSMVGPUT9706-37-79 19:51:00Negative *NA*(11/28/2011 14:51:00)[facility] JsomsyjXVNKWBGYZ2557-20-23 19:51:00Negative *NA*(11/28/2011 14:51:00)[facility] CcaqrpmEUZVNAJMO1251-87-34 19:51:00Negative *NA*(11/28/2011 14:51:00)[facility] RprvrkxAZLIZSTUZ2669-05-60 19:51:00Negative *NA*(11/28/2011 14:51:00)[facility] SibknlrTLEZIFYNZ7152-90-50 19:51:00Negative *NA*(11/28/2011 14:51:00)[facility] PtggzusSYFJYYAQZ1697-69-85 19:51:00Negative *NA*(11/28/2011 14:51:00)[facility] GzqnursLMBLNJVCI9651-97-14 19:51:00Negative *NA*(11/28/2011 14:51:00)[facility]annBED[facility] GLUCOSE LFLVRGC5298-89-81 16:20:85767Fehslxfj AwxmanoYQXGFZVTK6102-60-94 15:30:00Negative (09/18/2011 10:30:00)[facility] TaylorTczbduqFHWJOSTYBD5370-40-46 15:30:00None Seen (09/18/2011 10:30:00)[facility] TaylorJmwqbtvYGOZTKLOKL8924-24-31 15:30:00None Seen (09/18/2011 10:30:00)[facility] TaylorEazmbcgWVOKYTTCDR0493-02-38 15:30:00None Seen (09/18/2011 10:30:00)[facility] TaylorQplrtqvVFQOEHFDQQ7894-59-42 15:30:00Few /HPF *ABN*(09/18/2011 10:30:00)[facility] TaylorXqrguvlCCXUWIMSLE2268-77-52 15:30:00Performed (09/18/2011 10:30:00)[facility] TaylorSagxmuaVOCNQXTPGS6457-73-32 15:30:00Rare /LPF (09/18/2011 10:30:00)[facility] TaylorXyvyymqRFDJINVSNI3820-47-27 15:30:0015 mg/dL *ABN*(09/18/2011 10:30:00)[facility] TaylorMofponhSWSGQHUACR9927-46-45 15:30:00>=1000 mg/dL *ABN*(09/18/2011 10:30:00) [facility] TaylorNcvfbdxMKHNOLNZOP6187-25-22 15:30:00Trace *ABN*(09/18/2011 10:30:00) [facility] BjdwabkKTHKGKGHVW7651-19-31 15:30:000.2[facility] HermannURINALYSIS 2011-09-18 15:30:00Negative (09/18/2011 10:30:00)[facility] HermannURINALYSIS 2011-09-18 15:30:00Negative *NA*(09/18/2011 10:30:00)[facility] HermannURINALYSIS 2011-09-18 15:30:00Negative (09/18/2011 10:30:00)[facility] HermannURINALYSIS 2011-09-18 15:30:00Negative (09/18/2011 10:30:00)[facility] HermannURINALYSIS 2011-09-18 15:30:00 Test Item Value Reference Range Interpretation Comments UA pH (test code = UA pH) 7.5 1 5.0-8.0 N [facility] TfbjdtjQNTYVDTEGQ9815-51-60 15:30:00 Test Item Value Reference Range Interpretation Comments UA Spec Grav (test code = UA Spec 1.010 1 N Grav) [facility] WsvfzzyILUREQQUYP8021-83-11 15:30:00Slight Cloudy (09/18/2011 10:30:00) [facility] EiqjjnuNPWEAOGKEW3320-50-01 15:30:00Yellow *NA*(09/18/2011 10:30:00) [facility] KglckcoQBTBHFTPQ4216-29-02 14:07:004.4[facility] HermannCHEMISTRY 2011-09-18 14:07:001.6[facility] HermannBEDSIDE GLUCOSE WGJRMLG1836-92-53 14:01:00 >400[facility] HiygvdnHSPQWPZSI0418-65-28 13:52:0024[facility] HermannCHEMISTRY 2011-09-18 13:52:0032.0[facility] SprgmyaDVMDJNRXB7179-01-10 13:52:0044[facility] KbtksiuOBEITBISJ4810-27-24 13:52:007[facility] AtgwgwiJMSTGRZTX7199-00-45 13:52:00 48.0[facility] EhlklvuPJANAJJHK2453-64-96 13:52:0037.0[facility] HermannCHEMISTRY 2011-09-18 13:52:007.47[facility] SljsyeiBIZVBQACK5273-98-98 13:52:0010.1[facility] JdnnhwwJMFRNWMBV2524-48-74 13:52:0092[facility] AffnsilJPOZEFOLR2077-46-61 13:52:0030[facility] QofaxgkKWZOKGYZE6756-44-36 13:52:003.5[facility] GGXERPLNO8761-43-85 13:52:42906Jflumqar NgaiusyMHDKVETGK2099-11-83 13:52:001.3 [facility] StwgmwrIAZVUZQRU6945-20-11 13:52:95077Vsmvyazs HermannCHEMISTRY 2011-09-18 13:52:0017[facility] LdtpkruNLTWVMLYL9921-67-40 13:52:0014.5[facility] UqbzrlrUDEABYCITK3480-43-07 13:52:0012.0[facility] VoykzuaHMHWIKMQBP1291-16-02 13:52:00345Pvocvmws LdbislmYAWUBPCJXQ7828-63-83 13:52:0033.7[facility] LQQOIAQMRH0252-82-26 13:52:00 Test Item Value Reference Range Interpretation Comments MCH (test code = MCH) 28.5 pg 27.0-31.0 N [facility] CrpdfnqFVRSUCQBPE0182-70-96 13:52:0015.1[facility] HermannHEMATOLOGY 2011-09-18 13:52:0084.6[facility] LfemjoxPWUDRMSMUS1824-95-86 13:52:0036.4[facility] OfqkdzrGGXWFALKRR7775-42-90 13:52:0012.3[facility] FfgabskSXZYYGBQDX9692-93-33 13:52:004.30[facility] JgozezwHZCULFSAOK7217-77-86 13:52:0011.7[facility] JDGBXXWQGG6709-08-35 13:52:002.9[facility] OuflptsMVTPNKFRNV7281-81-91 13:52:000.2 [facility] TftelfeKZQRPQJWSY0735-70-94 13:52:000.0[facility] HermannHEMATOLOGY 2011-09-18 13:52:000.0[facility] UzzasqwAMZCWJMDNP0999-61-39 13:52:000.3[facility] MvqgikrTZGVMSWWGS6606-30-71 13:52:0092.0[facility] OvzldwhJBIUASIRQT7269-98-33 13:52:004.9[facility] EthhagiXPLONOBXHT3897-84-44 13:52:00Rare *ABN*(09/18/2011 08:52:00)[facility] NyohxndXPDGMFSCQH8635-73-20 13:52:00Slight *ABN*(09/18/2011 08:52:00)[facility] SvadhteYQKQUZVNOS8118-62-79 13:52:001+ *ABN*(09/18/2011 08:52:00)[facility] FwneiwgFYOVJEWNTT6447-70-85 13:52:001+ *ABN*(09/18/2011 08:52:00)[facility] UwypwgmVDDCSHMPRZ8229-43-82 13:52:000.6[facility] OWOKIFMMQT1525-19-43 13:52:0010.8[facility] MjlivrtBLIIODIEXQ3487-85-07 13:52:00 0.0[facility] JtqnewlHDJEJXICDF9109-19-08 13:52:001+ *ABN*(09/18/2011 08:52:00) [facility] GlaurqaLQREEKDIJK8272-71-77 13:52:00Negative *NA*(09/18/2011 08:52:00) [facility]annBEDSIDE GLUCOSE AQVWBSD6030-33-88 17:34:79705Jxdwyhkd [place] BEDSIDE GLUCOSE JEUKLZL3043-79-82 11:43:0091[facility]annBEDSIDE GLUCOSE UZNQYWT2324-07-41 02:45:96288Vznmddta EdhxsulXUHXQGAPK4329-21-92 08:47:15038 [facility] DuibvgcOATWVGNED0684-25-32 08:47:25431Gdlvtqah HermannCHEMISTRY 2011-09-08 08:47:0029[facility] MujrotyAGWXCWXDB9787-62-59 08:47:03021Ysjjkcbb IarloeyINFCEMHCH2140-20-26 08:47:0010[facility] ZscgphyODVOYGPQU1702-19-38 08:47:003.8[facility] TcaqvdrHPQUTTYGZ1670-68-64 08:47:000.6[facility] DHAZSUTXF3154-96-04 08:47:008.5[facility] WrlijejGQZGXURCI6396-82-09 08:47:0014.8 [facility] FhollytNSWNBEOMXI2050-59-69 08:47:00 Test Item Value Reference Range Interpretation Comments MCH (test code = MCH) 28.9 pg 27.0-31.0 N [facility] XkgmtnkPXRNVSHGOY9053-32-53 08:47:0082.1[facility]annHEMATOLOGY 2011-09-08 08:47:0025.9[facility] UvabhxzMAXMEPKCQY4667-92-14 08:47:09230Qlvannlr TofoeecJEQFQPSLZO7906-71-48 08:47:0014.5[facility] ZwtkvzqRNMHWHNZVE3587-48-65 08:47:0035.2[facility] MxhhqwoQBTRXXLEQP8357-68-58 08:47:009.1[facility] VOYVTYQYVX9243-21-11 08:47:003.15[facility] JxigrcgDMWPZWEXZP4387-08-91 08:47:00 9.0[facility] OitaukoNACKWTMDHQ5262-61-62 08:47:006.3[facility]annHEMATOLOGY 2011-09-08 08:47:000.0[facility] LvbjtfiHHSMFXHDDR5509-64-41 08:47:000.0[facility] LxsazoeDVRLYXMZLA5324-23-75 08:47:003.8[facility] WzjpjpeUSLKALXHIY1826-39-93 08:47:002.0[facility] QslmmpwEOCBYGFBBC3683-24-89 08:47:000.5[facility] NQGNXYJCHB0835-41-27 08:47:000.7[facility] JymywajJLZKEXRMZR2814-22-35 08:47:006.2 [facility] YckliliXIRPEPWLAD0907-59-72 08:47:0061.1[facility]annHEMATOLOGY 2011-09-08 08:47:0031.5[facility] KyupzphJECJAUKJTB2119-73-91 08:47:000.4[facility] LxowsavNVLLBHGFU7774-62-36 10:54:0027[facility] TijfgnjHHGXCGADA8229-35-52 10:54:72522Arspdbqk HmvfltzILRMWLVUL5595-14-56 10:54:000.5[facility] CGHRTSXJI4663-44-60 10:54:0010[facility] PqnxsaxGGWDWNRVG6489-28-64 10:54:004.1 [facility] UmvcsegRXLFKVYPF0359-71-19 10:54:32098Deenjawq HermannCHEMISTRY 2011-09-07 10:54:0083[facility] NkxnnmjVPSPFWFBF9146-85-26 10:54:008.4[facility] UrujkicDGLNDMAOT6333-39-52 10:54:0014.1[facility] GksbidmJFMJDOVXSY2589-18-11 10:54:0035.5[facility] OhkvkpvIQZGVUIWLF4881-93-77 10:54:004.7[facility] ZVASOPEUKY8558-82-77 10:54:0092.6[facility] MsdgmfdFTWOHGBTQD4146-72-26 10:54:00 Test Item Value Reference Range Interpretation Comments MCH (test code = MCH) 31.4 pg 27.0-31.0 H [facility] LlwkhudCUZKBTZFKB9717-30-70 10:54:003.84[facility]annHEMATOLOGY 2011-09-07 10:54:0012.1[facility] OmapteiABDJKMPUUH2549-47-91 10:54:12883Npjcxxlr AxlyjitVKUXVDPCBC1917-84-85 10:54:0012.7[facility] ZyfmhxtVUPBOXEXPB9682-09-92 10:54:0033.9[facility] LmejeusFFZDKRLUWC9032-72-78 10:54:007.2[facility] OSZLTOWEOU8112-54-58 10:54:000.95[facility] JqscktpDHOWIKLURE1460-26-97 10:54:00 Test Item Value Reference Range Interpretation Comments PT (test code = PT) 12.7 s 12.0-14.7 N [facility] JycjnuqDMEXACCRCT6192-83-74 10:54:00 Test Item Value Reference Range Interpretation Comments PTT (test code = PTT) 28.5 s 22.9-35.8 N [facility] EmufnwwPUHDHNLVZL5680-59-52 10:54:000.1[facility]annHEMATOLOGY 2011-09-07 10:54:000.0[facility] UhbpfebDCNWYZXYAB7755-85-45 10:54:000.4[facility] BdezkqeHNYNBRDDPU0456-15-75 10:54:002.1[facility] MmmryviSBKSKKJYUA5673-07-09 10:54:009.0[facility] MlhyskhZAITWCLWCK7130-02-37 10:54:002.4[facility] RFTJZJEMKA5462-09-75 10:54:000.4[facility] WjfqecaYSHVGQADOD9722-58-91 10:54:002.0 [facility] AtebllsQNJJIKLJNZ5859-49-05 10:54:0042.8[facility]annHEMATOLOGY 2011-09-07 10:54:0045.4[facility] MfngubaOIQIHDWXY5948-39-96 10:02:33074Fixnhomg TubdsgdAAPRVAWLF9113-98-70 10:02:004.1[facility] IbboglrRPQBQNHQI6911-37-34 10:02:91070Uhieyeqm EqiqkwqULHEOLDKF7099-27-04 10:02:0029[facility] KAGHTEUJN6771-22-97 10:02:008.7[facility] UtosatiSMHWSRHYU0056-57-91 10:02:006 [facility] LvgkrvjJUYEKTVKF1730-05-05 10:02:000.6[facility] HermannCHEMISTRY 2011-09-07 10:02:43340Iwgjpcfo ItpdgzcXIVZGEUEG8861-21-65 10:02:0013.1[facility] JwxijlsOSFUABXNZO1019-24-31 10:02:000.0[facility] SteiojlKIPFTCHJHI2315-41-64 10:02:000.3[facility] MozbkqtHMQBDVIUTD0817-27-10 10:02:000.1[facility] NTTVYDJKXV0750-46-53 10:02:002.8[facility] PxutlzsOHGPKWIILG6016-96-74 10:02:001.7 [facility] OoikdquZZTEIYXVJD0296-44-41 10:02:000.6[facility]annHEMATOLOGY 2011-09-07 10:02:006.9[facility] GsyzwydERDLORXGKM3801-25-66 10:02:002.0[facility] TpbthljHMXLBEVGJA9698-25-89 10:02:0055.8[facility] UvscblnMLFHKMXZYY6795-86-27 10:02:0034.7[facility] EfgaetkVWWTOMWOZF7594-15-27 10:02:00 Test Item Value Reference Range Interpretation Comments PTT (test code = PTT) 32.2 s 22.9-35.8 N [facility] PywkgetFMWUJYQMCP0543-57-20 10:02:00 Test Item Value Reference Range Interpretation Comments PT (test code = PT) 13.3 s 12.0-14.7 N [facility] EmrguarMAOLYLQLYD6111-11-30 10:02:001.01[facility]annHEMATOLOGY 2011-09-07 10:02:0027.5[facility] XjuspzwQRDTTHJOXM3355-89-02 10:02:003.34[facility] IjruykuJRETSYNIBF6983-79-66 10:02:009.7[facility] LvmsukfBHGUSDJKFA0567-68-14 10:02:005.0[facility] NeuumywVSSZWFTTDJ5372-91-94 10:02:009.2[facility] GIHOBCMMLZ8152-37-96 10:02:83738Hdcmusaj MhxaqfaGSZVSLDVEA0435-05-92 10:02:00 14.3[facility] KyctmzeBPDQGFCMOQ2312-53-79 10:02:0035.2[facility]annHEMATOLOGY 2011-09-07 10:02:00 Test Item Value Reference Range Interpretation Comments MCH (test code = MCH) 28.9 pg 27.0-31.0 N [facility] VptiyglXHRBLAHYPE2492-47-36 10:02:0082.1[facility] HermannCHEMISTRY 2011-09-03 09:24:002.1[facility] RkinbgkMMHJZROED2271-60-81 17:10:0037.0[facility] KtsohtbSFDLSDPKP8341-38-13 17:10:0027.0[facility] EovnjqkTVWOPMSKN4224-09-21 17:10:0047[facility] FmmxpyhMINWNQHQT6338-86-24 17:10:007.37[facility] GPTQUNFSG1926-17-24 17:10:001[facility] TrsndfwRWXBADVTF6596-89-73 17:10:0027.2 [facility] SbnonxrGHARDWEUK4906-16-47 17:10:0019[facility] HermannCHEMISTRY 2011-09-01 13:09:001.0[facility] ZumiydcTKQBKOWTH0724-03-41 12:20:00Negative (09/01/2011 07:20:00)[facility] MfzlvizSDKGXNNDPT3568-46-59 12:20:00Occasional /LPF (09/01/2011 07:20:00)[facility] DfyvbnyNAGSLTZYYR9023-56-01 12:20:00Negative (09/01/2011 07:20:00)[facility] JsdauanOYHLDMFDEY7886-78-62 12:20:00Negative (09/01/2011 07:20:00)[facility] VzkffpdEHOESBCMEQ0820-25-83 12:20:000.2[facility] BvzmeulCTZLHDNTDA0084-41-10 12:20:00Negative (09/01/2011 07:20:00)[facility] NodbuidSZQFDICQAJ5342-46-63 12:20:00>=80 mg/dL *ABN*(09/01/2011 07:20:00) [facility] TspbufkTASCTFSJQW0394-92-29 12:20:00Negative (09/01/2011 07:20:00) [facility] QlswgkuQCJLOONBBC9672-81-71 12:20:00 Test Item Value Reference Range Interpretation Comments UA pH (test code = UA pH) 6.0 1 5.0-8.0 N [facility] TeafypjTIVIUWRWNQ8339-34-30 12:20:00Negative (09/01/2011 07:20:00) [facility] LagodmbOFUVYKADMS0863-91-25 12:20:00>=1000 mg/dL *ABN*(09/01/2011 07:20:00)[facility] PublgptKMJOTKONJO2403-59-22 12:20:00 Test Item Value Reference Range Interpretation Comments UA Spec Grav (test code = UA Spec 1.035 1 H Grav) [facility] EfpvovfLKQGHLUWMS5729-11-07 12:20:00Clear (09/01/2011 07:20:00)[facility] EapgeywDFMREJKQYZ1225-53-46 12:20:00Yellow *NA*(09/01/2011 07:20:00)[facility] EgnyyekUFPIJGIGA9830-52-57 08:00:002.8[facility] HwwsnftMSUSRNXJR3016-94-87 07:47:001.5[facility] VfdervfFZUQPXBDIT6626-46-94 07:47:00Slight (09/01/2011 02:47:00)[facility] VsekugeILQYEKWUVR3268-78-93 07:47:001+ *ABN*(09/01/2011 02:47:00)[facility] CllzuxlDAOAVDTDLR8738-47-25 07:47:00Slight *ABN*(09/01/2011 02:47:00)[facility] ScdwfqaGHBZZSHNKJ4858-83-49 07:47:00Slight *ABN*(09/01/2011 02:47:00)[facility] HermannBEDSIDE GLUCOSE SCIDIDI4638-80-33 17:02:97884Lmtgikeo HermannBEDSIDE GLUCOSE TIDRICK1252-81-33 13:45:41373Lcziulec HermannCHEMISTRY 2011-08-23 10:22:003.0[facility] BrkfmyhWVDLFJPSK6448-20-74 10:22:001.8[facility] DecwddqUVUPUKMGY5290-13-97 10:22:10202Ebdzbrmi VxekjcpAVUYFEFBD0717-53-09 10:22:003.0[facility] AbbloqzDEOCMVZGU0109-40-73 10:22:04022Ngwyhpak [place] JUYTTMBTC4361-37-68 10:22:000.6[facility] ChscospUKOFFSVLZ6877-28-98 10:22:0023 [facility] JxafysaGOEJGDAAW2720-85-00 10:22:007.3[facility] HermannCHEMISTRY 2011-08-23 10:22:60889Wtcbtoik XafofsnZWKJIGYVQ4025-82-09 10:22:0014.0[facility] CfkethoKVWVYJMLO6701-20-14 10:22:005[facility] GnliwmeXXFAMGZTZQ3076-12-99 10:22:0069.6[facility] PxjwzoaRJBMDSOOEA1109-44-63 10:22:0021.5[facility] [place] SCEENIZWGA3943-08-69 10:22:007.6[facility] BwdzflkKBOZBUBCKA0398-54-83 10:22:001.0 [facility] XotohboWZQCSTDDVD0175-66-17 10:22:000.3[facility] HermannHEMATOLOGY 2011-08-23 10:22:004.8[facility] FevkcieTCGCJQPLDW0110-81-02 10:22:000.1[facility] OzvebezLLBOOYRHQI5296-42-49 10:22:001.5[facility] MdvbeflPPUNUFEVTB0023-12-84 10:22:000.5[facility] BluldnnTXMOFDRUMQ7397-08-92 10:22:000.0[facility] [place] IRJANCLMFF4587-47-54 10:22:0011.0[facility] SnftlelHXAYEVEYTM6053-60-79 10:22:00 161[facility] HjfvjvhPKPKYYVDWL3040-24-02 10:22:00 Test Item Value Reference Range Interpretation Comments MCH (test code = MCH) 29.6 pg 27.0-31.0 N [facility] FjmzjicAZXHPVCDHM5450-01-57 10:22:0035.4[facility] HermannHEMATOLOGY 2011-08-23 10:22:0014.1[facility] OpibqeyFYUTLITEWP0111-18-18 10:22:006.8[facility] HabwqxxQCKPSOISTT9282-01-32 10:22:0083.5[facility] CnewefvHXJHEQQFKT0328-47-29 10:22:004.44[facility] LtrralcTNTQTMCPHJ5813-79-98 10:22:0013.1[facility] [place] FIDOIYTDIG2452-56-08 10:22:0037.1[facility] HermannBEDSIDE GLUCOSE TESTING 2011-08-23 02:20:19928Rhmsavpt IqzzuxsEPPEDIPFL4325-56-53 09:47:002.5[facility] OnvmlovQUMQNJGYB0629-39-83 09:47:71445Lbllkrcs CsmokkrNLNJQNKWV1851-96-57 09:47:007[facility] JdhcapzLJPCSLOOK4467-65-90 09:47:0019[facility] HermannCHEMISTRY 2011-08-22 09:47:000.3[facility] SiekvpcUNAGKADIH6425-83-98 09:47:99231Trjfcjop BncmmhtXLPWQASBB6949-22-34 09:47:00788Qwurhwnu NzctuxzTTDQYVCQN3502-82-41 09:47:003.6[facility] MuwfjnzUDJHNAIXC2993-36-85 09:47:007.9[facility] Vin LGKQWENOC6214-88-13 09:47:0018.6[facility] RxcywagMFIVCMWAW8686-34-07 09:47:001.6 [facility] FhbfbxwCQQDZTRUSQ0861-73-85 09:47:000.0[facility] HermannHEMATOLOGY 2011-08-22 09:47:000.4[facility] DdezbonGSFUNPDNII4576-74-18 09:47:000.5[facility] MqevbwfGKOEMBJVIW4140-46-53 09:47:005.9[facility] QykijfmVQFDTURLCX9119-03-56 09:47:001.2[facility] QwxthnmPXNWELDEHR6261-31-71 09:47:000.5[facility] Vin NVREURELIV6952-34-84 09:47:000.0[facility] DutwwhtEWIMXABGIH8505-07-93 09:47:00 76.9[facility] SeempruRHGTLOJUAA6479-61-88 09:47:0015.9[facility] HermannHEMATOLOGY 2011-08-22 09:47:006.3[facility] MkqswumKHBOKMEWEX7737-82-06 09:47:0082.8[facility] NfvfbnfMQJHZMQLRJ4251-28-31 09:47:0039.7[facility] PsovneeWWOWVLHYPC1425-20-20 09:47:00 Test Item Value Reference Range Interpretation Comments MCH (test code = MCH) 29.1 pg 27.0-31.0 N [facility] IidtnznGJAEEJZUBJ8960-31-31 09:47:0014.0[facility] HermannHEMATOLOGY 2011-08-22 09:47:0035.2[facility] GgceqflTKXFPPUYQS2677-80-73 09:47:0013.9[facility] JojzsheMIRNZXZUBP6494-71-82 09:47:25280Fwrcjgzr XljkoqlEJCRPAIKUF8913-45-22 09:47:0011.9[facility] UquwfwnGXLUXLRIPA6181-60-36 09:47:007.7[facility] Vin MHWASUZVZO1642-23-52 09:47:004.80[facility] QayfkxmHKHZCFRNH6461-36-36 10:28:002.6 [facility] VfuslypBPZHLKUDS1653-40-30 10:28:001.8[facility] HermannCHEMISTRY 2011-08-21 10:28:003.7[facility] OozfnzoLXKDPDUXX7042-65-46 10:28:21113Gewzllns WsdqbnuJPHIALYAQ3307-96-33 10:28:000.6[facility] SqhtcviFCAKLZXSK9541-72-25 10:28:0016[facility] ZgfzrpsKHGHSVDUZ7029-80-33 10:28:11181Zantusoh Vin MQQMMNRWC4714-53-75 10:28:008.3[facility] YycucdsJMLFGBOPB2891-67-80 10:28:0019.7 [facility] LgrlchnZLSIFEEFK7552-55-50 10:28:0099[facility] HermannCHEMISTRY 2011-08-21 10:28:0022[facility] QsrdjloCWLARDFHVE6680-68-08 10:28:72133Khzldrkd WcqhqynISKNAIETZK8486-60-02 10:28:0012.0[facility] JqsczkjMWOTHRIMSU3992-52-94 10:28:007.3[facility] PszxtncITAPCXRTHG5260-99-76 10:28:0014.6[facility] [place] JKSHRKZYTU7500-72-18 10:28:0035.0[facility] NsuddgaHKOQYSEXCY2792-86-33 10:28:00 4.54[facility] TkuafrkMITZRABPJH5809-16-41 10:28:0037.6[facility] HermannHEMATOLOGY 2011-08-21 10:28:0082.9[facility] NtzxgenTFCIDJWYIL5482-48-29 10:28:00 Test Item Value Reference Range Interpretation Comments MCH (test code = MCH) 29.0 pg 27.0-31.0 N [facility] RnvlituAYZTZLZESV4496-70-37 10:28:0013.2[facility] HermannHEMATOLOGY 2011-08-21 10:28:00Slight *ABN*(08/21/2011 04:28:00)[facility]annHEMATOLOGY 2011-08-21 10:28:00Slight (08/21/2011 04:28:00)[facility]annHEMATOLOGY 2011-08-21 10:28:000.0[facility] HbcjeulYQAZTKMYXB0111-10-60 10:28:00Slight (08/21/2011 04:28:00)[facility] FoyrwuuWDZWDZHMYS8057-31-36 10:28:000.6[facility] JvusyqyZTVXAOMPQG8373-47-53 10:28:000.0[facility] UaaxzjmALCXWRFPNN4237-08-01 10:28:005.3[facility] HjilplrWOBUPAJPVB1107-81-50 10:28:001.3[facility] Vin TOYGSJOLCD4159-90-97 10:28:000.5[facility] LumgeciGDMVEOLNJF7240-97-02 10:28:008.5 [facility] XqpptukIXDJQMMXFU8187-00-96 10:28:000.3[facility] HermannHEMATOLOGY 2011-08-21 10:28:0017.3[facility] BpwxgxkLNCEHUVCVC2843-26-30 10:28:0073.4[facility] CuefmzhOLRPDAOXP7713-84-81 21:58:00Negative (08/19/2011 15:58:00)[facility] UvsrqlsVTFKFPIGH0687-60-91 21:58:89316Yctnutgz HxeegkmGFSXGWKRX6067-67-37 21:58:0054[facility] AzjbxhoVTHCQPTWG0137-74-14 21:58:90638Fbryyvsx [place] JCDRKFZAN0053-18-80 21:58:000.1[facility] BfwjyqnUXQYFZAHC7399-73-88 21:58:000.9 [facility] YoclkwwXOKLABGOP3009-41-89 21:58:004.4[facility] HermannCHEMISTRY 2011-08-19 21:58:008.8[facility] GlgetaxTXGMTAWMK8850-41-87 21:58:000.8[facility] DytrxgeLMUFZKXMC9024-15-07 21:58:0036[facility] GyilwlpEBUTURLXK0582-93-21 21:58:004.4[facility] BbkutdtTFIFRNRDZ6904-50-83 21:58:001.0[facility] [place] UYVVAFUNHX1701-62-54 21:58:00Occasional /HPF (08/19/2011 15:58:00)[facility] JkahmiqEITFPQZZPM7242-84-77 21:58:003-5 /HPF *ABN*(08/19/2011 15:58:00)[facility] DomknzpSUTMLWMZJJ6579-16-02 21:58:003[facility] FawjiogZLCMTMOZUJ6499-30-24 21:58:00Few /LPF (08/19/2011 15:58:00)[facility] WspbjpwDNIDVUSQXA4662-70-99 21:58:00Occasional /HPF *ABN*(08/19/2011 15:58:00)[facility] HermannURINALYSIS 2011-08-19 21:58:000.2[facility] PhpfmpoVWQDUGQDQU9039-91-96 21:58:00Rare /LPF (08/19/2011 15:58:00)[facility] VacgyjaDSYRQKLOBQ1855-20-36 21:58:00Performed (08/19/2011 15:58:00)[facility] VrllzgkQSAEKDDIMX6334-30-78 21:58:00Negative (08/19/2011 15:58:00)[facility] OncmvifUHIDICFILT0057-38-38 21:58:00Negative (08/19/2011 15:58:00)[facility] FivrpjtQAVPYVGETK6437-84-18 21:58:00 Test Item Value Reference Range Interpretation Comments UA pH (test code = UA pH) 5.5 1 5.0-8.0 N [facility] SemqfbuRGWJZBKAUT7840-70-80 21:58:00Trace *ABN*(08/19/2011 15:58:00) [facility] LyjpjnbOWHERDQPCF9148-58-72 21:58:00Negative (08/19/2011 15:58:00) [facility] VxjxjptLQCJTVSMYT6899-62-87 21:58:0080 mg/dL *ABN*(08/19/2011 15:58:00) [facility] GtmwsolNNSINZGDML3344-52-32 21:58:00>=1000 mg/dL *ABN*(08/19/2011 15:58:00)[facility] YdlovvdZRFQLRTXDX9944-14-86 21:58:00Negative (08/19/2011 15:58:00)[facility] MhnrjktHMTGJMVGIQ5087-92-87 21:58:00Slight Cloudy (08/19/2011 15:58:00)[facility] NztjrfiMVZNFKVSBZ5978-90-63 21:58:00 Test Item Value Reference Range Interpretation Comments UA Spec Grav (test code = UA Spec 1.025 1 Grav) [facility] HewxmmpQAMVCQZXZJ8354-00-45 21:58:00Yellow (08/19/2011 15:58:00) [facility] LwejvtqIIVXQVETQ3679-11-01 21:13:0023[facility] HermannCHEMISTRY 2011-08-19 21:13:001.0[facility] XuabzciFAOQEHZNQ2126-53-32 21:13:62581Qitveoez OitshffBWBOSOJJU0029-09-25 21:13:0056[facility] OjtnbflTKGGHAUOJ2759-00-52 21:13:009.0[facility] OdvtonvIMLHELIBE9594-49-95 21:13:004.8[facility] Vin XYXOUFJKM3669-29-69 21:13:004.2[facility] DhmvufpIAWRQNNMK5307-60-88 21:13:001.1 [facility] PfkxmpxEAAONVLLL7534-75-67 21:13:0030[facility]annHEMATOLOGY 2011-08-19 21:13:00Normal (08/19/2011 15:13:00)[facility]annHEMATOLOGY 2011-08-19 21:13:00Slight *ABN*(08/19/2011 15:13:00)[facility] HermannHEMATOLOGY 2011-08-19 21:13:000.0[facility] BqfpbduQAJGAEZLQH0868-74-49 21:13:000.0[facility] TalfrrcYCWBETUAX8992-45-94 21:10:0074.0[facility] TfyopxxGGCQUINGA1180-79-17 21:10:0037.0[facility] YoglrgnXGYKHELKO7198-02-99 21:10:0042[facility] [place] PESXLXSXA2199-54-98 21:10:0017.3[facility] MdchicmEZDNKYYLX2058-82-65 21:10:007.34 [facility] QugmqjrESMAGASLR1636-17-26 21:10:0032[facility] HermannCHEMISTRY 2011-08-19 21:10:00-7[facility] FbkqlaaCRCDBDDADO0359-29-65 20:34:00Negative *NA*(08/19/2011 14:34:00)[facility]
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
--- OUTSIDE RECORDS SUMMARY | 2020-03-05 09:14 | XMS REPORT | Summary of Care ---
:1980 Author Organization [facility] Address [address] [place] [address] Care Team Providers Name Role Phone HernandomarioVivien DO Assistant Strength Coach Joaquin Valdez MD Primary Care Provider Reason for Referral (Routine) Status Reason Specialty Diagnoses / Procedures Referred By Eduin millard To Contact Contact New Request Diagnoses Type 2 diabetes mellitus with chronic kidney disease on chronic dialysis, without long-term current use of insulin Silverio Valdez Wentong, MD Procedures CONSULT/REFERRAL ENDOCRINOLOGY Diabetes; Preferred Location: [facility] MD Joaquin [address] [place] [address] Phone: Fax: Reason for Visit Reason Comments Establish Care Encounter Details Date Type Department Care Team Description 02/06/2020 Office Visit [facility] Pediatric Silverio Valdez Type 2 diabetes mellitus with chronic kidney disease on chronic dialysis, without long-term current use of insulin (Primary Dx); and Adult Primary MD Joaquin ESRD (end stage renal disease) on dialys is Care- [address] [place] [address] Drive, [address] [address] [place], [place] [phone] [address] [phone] Allergies Active Allergy Reactions Severity Noted Date [...] Added automatically from request for jose reynaldo [id number] Candidiasis of vulva and vagina 08/08/2018 Screening for breast cancer 08/08/2018 Pyogenic granuloma of conjunctiva, right 04/06/2018 Overview: Added automatically from request for jose reynaldo [id number] 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 Increased intraocular pressure 07/08/2017 Fall 04/02/2017 Pneumonia 03/31/2017 Diabetes mellitus 03/25/2017 Overview: Added automatically from request for jose myersy [id number] Pseudotumor cerebri 03/15/2017 Peripheral neuropathy 01/03/2017 Obesity [...] 10/20/2012 04/29/2015 uncontrolled Overview: ICD10 Diagnosis Term Environmental Services Attendant Utility documented as of this encounter (statuses [...] Right 12/14/2017 Surgeon: Adán Horn MD; Location: [facility] OR Location ENDOLASER PHOTOCOAGULATION Left 06/02/2017 Surgeon: [...] level: Not on file Occupational History 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 ESRD (end stage renal disease) on [...] Olivares MD [address] [place] [address] [phone] Health Maintenance Due Date Last Done [...] of this encounter Implants Implanted Type Area Cathode Maker Device Shelf Model / Identifier Expiration Serial / Date Lot Bio Eye Implant, Integrated Orbital Impl ants Ioi 18mm Perforated #[id number] - [id number] ORBITAL Left: INTEGRATED 09/18/2018 [id number] / Implanted: Qty: 1 on 01/17/2018 by Latrell Mcknight MD at [facility] Eye ORBITAL IMPLANTS [id number] / [id number] documented as of this encounter Results Not [...] Addre ss Type Group MEDICARE MEDICARE PART [id number] 2014-Gurwinder [phone] [address] Medicare A & B t 2 [id number] DHEERAJ G[place] [address] [facility] MEDICAID OF [id number] 2020-Gurwinder [phone] [address] Medicaid [place] t 0 [id number] [place] [address] documented as of this encounter Advance Directives Name Relationship Healthcare Agent Communication Relationship Jennifer Gunderson Mother Health Care Agent Lima Found Sibling First [facility] Health Care [phone] Agent (Mobile)
--- OUTSIDE RECORDS SUMMARY | 2020-03-05 09:14 | XMS REPORT | Summary of Care ---
:1980 Author Organization [facility] Address [address] [place] [address] Care Team Providers Name Role Phone HernandomarioVivien DO Research Project Coordinator Joaquin Valdez MD Primary Care Provider Reason for Referral (Routine) Status Reason Specialty Diagnoses / Procedures Referred By Eduin millard To Contact Contact New Request Diagnoses Type 2 diabetes mellitus with chronic kidney disease on chronic dialysis, without long-term current use of insulin Silverio Valdez Wentong, MD Procedures CONSULT/REFERRAL ENDOCRINOLOGY Diabetes; Preferred Location: [facility] MD Joaquin [address] [place] [id number] Phone: Fax: Reason for Visit Reason Comments Establish Care Encounter Details Date Type Department Care Team Description 02/06/2020 Office Visit [facility] Pediatric Silverio Valdez Type 2 diabetes mellitus with chronic kidney disease on chronic dialysis, without long-term current use of insulin (Primary Dx); and Adult Primary MD Joaquin ESRD (end stage renal disease) on dialys is Care- [address] [place] [address] Drive, [address] [id number] [place], [place] [phone] [id number] [phone] Allergies Active Allergy Reactions Severity Noted Date [...] Added automatically from request for jose reynaldo [id number] Candidiasis of vulva and vagina 08/08/2018 Screening for breast cancer 08/08/2018 Pyogenic granuloma of conjunctiva, right 04/06/2018 Overview: Added automatically from request for jose reynaldo [id number] 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 07/22/2017 Overview: Added automatically from request for jose myersy [id number] Neovascular glaucoma, left eye 07/08/2017 Increased intraocular pressure 07/08/2017 Fall 04/02/2017 Pneumonia 03/31/2017 Diabetes mellitus 03/25/2017 Overview: Added automatically from request for jose myersy [id number] Pseudotumor cerebri 03/15/2017 Peripheral neuropathy 01/03/2017 Obesity [...] 10/20/2012 04/29/2015 uncontrolled Overview: ICD10 Diagnosis Term 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 Utility documented as of this encounter [...] Right 12/14/2017 Surgeon: Adán Horn MD; Location: [facility] OR Location ENDOLASER PHOTOCOAGULATION Left 06/02/2017 [...] level: Not on file Occupational History 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 ESRD (end stage renal [...] Olivares MD [address] [place] [address] [phone] Health Maintenance Due Date Last Done [...] of this encounter Implants Implanted Type Area School Office Assistant Device Shelf Model / Identifier Expiration Serial / Date Lot Bio Eye Implant, Integrated Orbital Impl ants Ioi 18mm Perforated #[id number] - [id number] ORBITAL Left: INTEGRATED 09/18/2018 [id number] / Implanted: Qty: 1 on 01/17/2018 by Latrell Mcknight MD at [facility] Eye ORBITAL IMPLANTS [id number] / [id number] documented as of this encounter Results Not [...] Addre ss Type Group MEDICARE MEDICARE PART [id number] 2014-Gurwinder [phone] [address] Medicare A & B t 2 [id number] DHEERAJ GEE [id number] [facility] MEDICAID OF [id number] 2020-Gurwinder [phone] [address] Medicaid [place] t 0 [id number] [place] [address] documented as of this encounter Advance Directives Name Relationship Healthcare Agent Communication Relationship Jennifer Gunderson Mother Health Care Agent [place] Found Sibling First [facility] Health Care Agent (Mobile)
[2020-03-05 09:26] LABS: Absolute Lymphocytes (CBC) 0.9 K/uL (0.7-4.9); Basophils % 0.5 % (0-1.3); Hematocrit 28.1 % (36.0-45.0); Lymphocytes % 15.4 % (15.3-44.8); MPV 11.1 fL (7.6-11.3); RBC Red Blood Cell Count 2.98 M/uL (3.86-4.86)
[2020-03-05 09:48] LABS: Albumin 3.5 g/dL (3.4-5.0); Bilirubin Direct 0.2 mg/dL (0-0.2); Bilirubin Total 0.8 mg/dL (0.2-1.0); Magnesium 1.8 mg/dL (1.8-2.4); Potassium 4.5 mmol/L (3.5-5.1); Protein, Total 7.4 g/dL (6.4-8.2)
--- NOTE | 2020-03-05 10:51 | RAD REPORT ---
EXAM DESCRIPTION: CT - Abdomen Pelvis Wo Contrast - 03/05/2020 10:28 am CLINICAL HISTORY: Abdominal pain COMPARISON: 2017 TECHNIQUE: Computed axial tomography of the abdomen and pelvis was obtained. IV and oral contrast we re not requested. All CT scans are performed using dose optimization technique as appropriate and may include automated exposure control or mA/KV adjustment according to patient size. FINDINGS: The evaluation of solid organs, vessels and bowel is limited secondary to the lack of con trast administration. Gallstones. Gallbladder wall is not thickened. Spleen measures 13 centimeters. The liver, pancreas, adrenals and kidneys appear grossly normal. Vascular calcifications are present. Wall of the distal esophagus is thickened. There is no evidence of diverticulitis. Normal appendix IMPRESSION: Thickening of the wall distal esophagus may be secondary to inflammation or mass Mild splenomegaly Cholelithiasis without evidence of cholecystitis
[2020-03-05] MEDS ORDERED: PANTOPRAZOLE 40 MG INJ ONE (11:14)
--- NOTE | 2020-03-05 11:32 | EDPHYS ---
Physician Documentation [facility] Name: Cathi Zaldivar Age: 39 yrs Sex: Female : 1980 Arrival Date: 03/05/2020 Time: 08:19 Bed 7 Private MD: DWIGHT Physician Luis Sandra HPI: 03/05 09:20 This 39 yrs old Female presents to ER via EMS with complaints of Abdominal cp Pain, Nausea/Vomiting. 09:20 The patient presents with abdominal pain in the epigastric area. Onset: The cp symptoms/episode began/occurred yesterday. Associated signs and symptoms: Pertinent positives: nausea and vomiting, Pertinent negatives: constipation, diarrhea, fever, vomiting blood. Severity of pain: in the emergency department the pain is unchanged despite home interventions. 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 - Social history:: Smoking status: . ROS: 09:21 Constitutional: Positive for poor PO intake, Negative for body aches, chills, fever. cp 09:21 Cardiovascular: Negative for chest pain. 09:21 Respiratory: Negative for cough, shortness of breath, wheezing. 09:21 Abdomen/GI: Positive for abdominal pain, nausea and vomiting, Negative for diarrhea, constipation, hematemesis. Exam: 09:25 Constitutional: The patient appears in no acute distress, alert, awake, cp non-diaphoretic, non-toxic, well developed, well nourished, uncomfortable. 09:25 Head/Face: Normocephalic, atraumatic. cp 09:25 Eyes: Periorbital structures: appear normal, Conjunctiva: normal, no exudate, no injection, Sclera: no appreciated abnormality, Lids and lashes: appear normal, bilaterally. 09:25 ENT: External ear(s): are unremarkable, Nose: is normal, Mouth: Lips: moist, Oral mucosa: moist, Posterior pharynx: Airway: no evidence of obstruction, patent. 09:25 Chest/axilla: Inspection: normal, Palpation: is normal, no crepitus, no tenderness. 09:25 Cardiovascular: Rate: normal, Rhythm: regular. 09:25 Respiratory: the patient does not display signs of respiratory distress, Respirations: normal, no use of accessory muscles, no retractions, labored breathing, is not present, Breath sounds: are clear throughout, no decreased breath sounds. 09:25 Abdomen/GI: Inspection: abdomen appears normal, Bowel sounds: active, all quadrants, Palpation: soft, in all quadrants, severe abdominal tenderness, in the epigastric area, rebound tenderness, is not appreciated, voluntary guarding, is elicited in the epigastric area. 09:25 Back: pain, is absent. 09:25 Neuro: Orientation: to person, place \T\ time. Mentation: is normal, Motor: moves all fours, strength is normal. Vital Signs: 08:20 BP 190 / 120; Pulse 95; Resp 19; Temp 97.8(A); Pulse Ox 100% on R/A; Weight 83 kg (R); tw2 Height 5 ft. 1 in. (154.94 cm); Pain 9/10; 09:10 BP 153 / 107; Pulse 83; Resp 18; Pulse Ox 100% on R/A; tw2 10:02 BP 176 / 103; Pulse 77; Resp 17; Pulse Ox 99% ; rb1 11:01 BP 180 / 94; Pulse 79; Resp 17; Pulse Ox 97% on R/A; tw2 12:00 BP 162 / 129; Pulse 82; Resp 16; Pulse Ox 99% on R/A; tw2 13:10 BP 179 / 99; Pulse 88; Resp 17; Pulse Ox 100% on R/A; tw2 08:20 Body Mass Index 34.57 (83.00 kg, 154.94 cm) tw2 08:20 pt crying in pain tw2 MDM: 08:20 Patient medically screened. cp 11:29 Data reviewed: vital signs, nurses notes, lab test result(s), radiologic studies, CT cp scan. 11:29 Counseling: I had a detailed discussion with the patient and/or guardian regarding: the cp historical points, exam findings, and any diagnostic results supporting the discharge/admit diagnosis, lab results, radiology results. Response to treatment: the patient's symptoms have mildly improved after treatment, Patient continues to have nausea and is not tolerating po fluids, and as a result, I will admit patient. 11:30 Physician consultation: Hugh Stallworth MD was called at 11:31, was contacted at 11:31, regarding admission, to the medical/surgical unit. patient's condition. 03/05 08:22 Order name: Basic Metabolic Panel; Complete Time: 09:51 03/05 09:52 Interpretation: Normal except: GLUC 270; CRE 4.97; GFR 10; CA 7.1. 03/05 08:22 Order name: CBC with Diff; Complete Time: 09:51 03/05 09:52 Interpretation: Normal except: RBC 2.98; HGB 10.0; HCT 28.1; MCV 94.2; PLT 115; RDW cp 15.3; YASMINE% 78.1. 03/05 08:22 Order name: Hepatic Function; Complete Time: 09:51 03/05 08:22 Order name: Lipase; Complete Time: 09:51 03/05 09:18 Order name: Glucose, Ancillary Testing; Complete Time: 09:51 EDMO 03/05 09:20 Order name: Magnesium; Complete Time: 09:51 [facility] 03/05 09:53 Order name: CT Abd/Pelvis - Without Contrast; Complete Time: 10:55 03/05 08:22 Order name: IV Saline Lock; Complete Time: 09:09 03/05 08:22 Order name: Labs collected and sent; Complete Time: 09:09 03/05 08:28 Order name: Accucheck Blood Glucose; Complete Time: 09:24 03/05 10:56 Order name: PO challenge; Complete Time: 11:05 03/05 12:27 Order name: CONS Physician Consult EDMS Administered Medications: Discontinued: NS 0.9% 500 ml IV at bolus once 08:23 CANCELLED (Physician Discretion): NS 0.9% 1000 ml IV at 1 bolus Per protocol; 1000 mL cp bolus 08:46 Drug: Phenergan Suppository 50 mg Route: ME; tw2 09:45 Follow up: Response: No adverse reaction; Nausea is decreased tw2 09:00 Drug: NS 0.9% 500 ml Route: IV; Rate: bolus; Site: left upper arm; tw2 09:14 Follow up: Response: No adverse reaction; IV Intake: 250ml tw2 09:24 Follow up: Response: No adverse reaction; IV Status: Completed infusion tw2 09:02 Drug: Zofran (Ondansetron) 4 mg Route: IVP; Site: left upper arm; tw2 10:04 Follow up: Response: No adverse reaction tw2 09:04 Drug: morphine 2 mg Route: IVP; Site: left upper arm; tw2 10:00 Follow up: Response: No adverse reaction; Pain is decreased tw2 09:08 Drug: Pepcid 20 mg Route: IVP; Site: left upper arm; tw2 09:46 Follow up: Response: No adverse reaction tw2 11:06 Drug: ProTONIX 40 mg Route: IVP; Site: left upper arm; tw2 11:18 Follow up: Response: No adverse reaction tw2 12:08 Drug: Reglan 10 mg Route: IVP; Site: left upper arm; tw2 13:10 Follow up: Response: No adverse reaction; Nausea is decreased tw2 12:12 Drug: morphine 2 mg Route: IVP; Site: left upper arm; tw2 13:10 Follow up: Response: No adverse reaction; Pain is decreased; RASS: Drowsy (-1) tw2 Disposition: 11:45 Chart complete. 03/06 04:36 Co-signature as Attending Physician, uLis Sandra MD I agree with the assessment and the [facility] plan of care. Disposition: 03/05/20 11:32 Hospitalization ordered by Hugh Stallworth for Observation. Preliminary diagnosis is Nausea and vomiting - intractable. - Bed requested for Telemetry/MedSurg (observation). - Status is Observation. tw2 - Condition is Stable. - Problem is new. - Symptoms have improved. Signatures: Dispatcher [employer] EDShruthi Green Corey, MD MD cha Page, Corey, PA PA cp Wise, Tara RN RN tw2 Corrections: (The following items were deleted from the chart) 03/05 08:23 08:22 NS 0.9% 1000 ml IV at 1 bolus Per protocol; 1000 mL bolus ordered. cp cp 09:20 08:28 MAGNESIUM+C.LAB.BRZ ordered. EDMS EDMS 09:52 09:51 Normal except: GLUC 270; CRE 4.97; GFR 10. cp cp 11:31 08:22 Urine Dipstick-Ancillary ordered. cp ss 11:31 08:22 Urine Test ordered. cp ss 12:58 11:32 Hospitalization Ordered by Hugh Stallworth MD for Observation. Preliminary bd diagnosis is Nausea and vomiting - intractable. Bed requested for Telemetry/MedSurg (observation). Status is Observation. Condition is Stable. Problem is new. Symptoms have improved. cp 13:30 12:58 03/05/2020 11:32 Hospitalization Ordered by Hugh Stallworth MD for Observation. tw2 Preliminary diagnosis is Nausea and vomiting - intractable. Bed requested for Telemetry/MedSurg (observation). Status is Observation. Condition is Stable. Problem is new. Symptoms have improved. bd
--- NOTE | 2020-03-05 11:32 | ER ---
Nurse's Notes [facility] Name: Cathi Zaldivar Age: 39 yrs Sex: Female : 1980 Arrival Date: 03/05/2020 Time: 08:19 Bed 7 Private MD: Diagnosis: Nausea and vomiting-intractable Presentation: 03/05 08:20 Chief complaint: EMS states: pt states her gastroparesis is flaring up, it started tw2 yesterday morning with vomiting, she has just dry heaved on the way here, this one time is the only time she produced any vomit. Coronavirus screen: At this time, the client does not indicate any symptoms associated with coronavirus-19. Ebola Screen: Patient denies travel to an Ebola-affected area in the 21 days before illness onset. Initial Sepsis Screen: Does the patient meet any 2 criteria? No. Patient's initial sepsis screen is negative. Does the patient have a suspected source of infection? No. Patient's initial sepsis screen is negative. Risk Assessment: Do you want to hurt yourself or someone else? Patient reports no desire to harm self or others. Onset of symptoms was March 05, 2020. 08:20 Method Of Arrival: EMS: [facility] tw2 08:20 Acuity: JESSICA 3 tw2 Triage Assessment: 08:21 General: Appears uncomfortable, obese, unkempt, Behavior is crying, fussy, restless. tw2 Pain: Complains of pain in abdomen. GI: Reports lower abdominal pain, upper abdominal pain, nausea, vomiting. 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 - Social history:: Smoking status: . Screenin:53 Abuse screen: Denies threats or abuse. Nutritional screening: No deficits noted. tw2 Tuberculosis screening: No symptoms or risk factors identified. Fall Risk None identified. Assessment: 08:22 General: Appears uncomfortable, obese, unkempt, Behavior is crying, restless. Pain: tw2 Complains of pain in abdomen. Neuro: Level of Consciousness is awake, alert, obeys commands, Oriented to person, place, time, situation. Cardiovascular: Heart tones S1 S2 Patient's skin is warm and dry. Respiratory: Airway is patent Respiratory effort is even, unlabored, Respiratory pattern is regular, symmetrical, Breath sounds are clear bilaterally. GI: Bowel sounds present X 4 quads. Abd is soft X 4 quads Reports lower abdominal pain, upper abdominal pain, nausea, vomiting. : No signs and/or symptoms were reported regarding the genitourinary system. EENT: No signs and/or symptoms were reported regarding the EENT system. Derm: No signs and/or symptoms reported regarding the dermatologic system. Musculoskeletal: Circulation, motion, and sensation intact. Range of motion: intact in all extremities. 08:22 Cardiovascular: Dialysis shunt: in the right arm. tw2 08:33 GI: Pt is actively vomiting. tw2 08:36 Reassessment: provider DHEERAJ Montague at bedside, pts states "they cant do it in my neck tw2 because of scar tissues can you please put a line in my groin", provider states need for peripheral IV at this time. 08:51 GI: Pt is actively vomiting. tw2 08:54 Reassessment: charge nurse TABATHA Campbell at bedside at this time attempting mid line. tw2 09:10 Reassessment: No changes from previously documented assessment. Patient and/or family tw2 updated on plan of care and expected duration. Pain level reassessed. Patient is alert, oriented x 3, equal unlabored respirations, skin warm/dry/pink. 11:01 Reassessment: Patient and/or family updated on plan of care and expected duration. Pain tw2 level reassessed. Patient is alert, oriented x 3, equal unlabored respirations, skin warm/dry/pink. pt tolerated PO challenge but states "i am still feeling nauseous", provider notified. Patient states feeling better. 11:19 Reassessment: pt states "i just still feel so nauseous and i keep dry heaving", tw2 provider notified. 12:08 Reassessment: hospitalist Dr. Codi Stallworth at bedside at this time, pt actively vomiting at tw2 this time and dry heaving, medicated as ordered. 13:10 Reassessment: Patient appears in no apparent distress at this time. Patient and/or tw2 family updated on plan of care and expected duration. Pain level reassessed. Patient is alert, oriented x 3, equal unlabored respirations, skin warm/dry/pink. Patient states feeling better. Vital Signs: 08:20 BP 190 / 120; Pulse 95; Resp 19; Temp 97.8(A); Pulse Ox 100% on R/A; Weight 83 kg (R); tw2 Height 5 ft. 1 in. (154.94 cm); Pain 9/10; 09:10 BP 153 / 107; Pulse 83; Resp 18; Pulse Ox 100% on R/A; tw2 10:02 BP 176 / 103; Pulse 77; Resp 17; Pulse Ox 99% ; rb1 11:01 BP 180 / 94; Pulse 79; Resp 17; Pulse Ox 97% on R/A; tw2 12:00 BP 162 / 129; Pulse 82; Resp 16; Pulse Ox 99% on R/A; tw2 13:10 BP 179 / 99; Pulse 88; Resp 17; Pulse Ox 100% on R/A; tw2 08:20 Body Mass Index 34.57 (83.00 kg, 154.94 cm) tw2 08:20 pt crying in pain tw2 ED Course: 08:19 Patient arrived in ED. tw2 08:20 Luis Ruvalcaba PA is PHCP. cp 08:20 Luis Sandra MD is Attending Physician. cp 08:21 Triage completed. tw2 08:21 Arm band placed on. tw2 08:22 Bed in low position. Call light in reach. Pulse ox on. NIBP on. tw2 08:39 Azucena Matthews RN is Primary Nurse. tw2 08:40 Missed attempt(s): 22 gauge in left antecubital area. notified charge nurse TABATHA Campbell tw2 and DHEERAJ Sheth of need for US guided IV per pts request and history.. 09:00 Inserted MIDLINE POWERGLIDE 20 gauge 10 cm, L upper arm inserted with aseptic tw2 technique. Blood return noted, flushes easily. Pt tolerated well. Blood collected. 10:28 CT Abd/Pelvis - Without Contrast In Process Unspecified. EDMS 11:31 Hugh Stallworth MD is Hospitalizing Provider. cp 13:15 Patient admitted, IV remains in place. tw2 13:15 No provider procedures requiring assistance completed. tw2 Administered Medications: Discontinued: NS 0.9% 500 ml IV at bolus once 08:23 CANCELLED (Physician Discretion): NS 0.9% 1000 ml IV at 1 bolus Per protocol; 1000 mL cp bolus 08:46 Drug: Phenergan Suppository 50 mg Route: [place]; tw2 09:45 Follow up: Response: No adverse reaction; Nausea is decreased tw2 09:00 Drug: NS 0.9% 500 ml Route: IV; Rate: bolus; Site: left upper arm; tw2 09:14 Follow up: Response: No adverse reaction; IV Intake: 250ml tw2 09:24 Follow up: Response: No adverse reaction; IV Status: Completed infusion tw2 09:02 Drug: Zofran (Ondansetron) 4 mg Route: IVP; Site: left upper arm; tw2 10:04 Follow up: Response: No adverse reaction tw2 09:04 Drug: morphine 2 mg Route: IVP; Site: left upper arm; tw2 10:00 Follow up: Response: No adverse reaction; Pain is decreased tw2 09:08 Drug: Pepcid 20 mg Route: IVP; Site: left upper arm; tw2 09:46 Follow up: Response: No adverse reaction tw2 11:06 Drug: ProTONIX 40 mg Route: IVP; Site: left upper arm; tw2 11:18 Follow up: Response: No adverse reaction tw2 12:08 Drug: Reglan 10 mg Route: IVP; Site: left upper arm; tw2 13:10 Follow up: Response: No adverse reaction; Nausea is decreased tw2 12:12 Drug: morphine 2 mg Route: IVP; Site: left upper arm; tw2 13:10 Follow up: Response: No adverse reaction; Pain is decreased; RASS: Drowsy (-1) tw2 Intake: 09:14 IV: 250ml; Total: 250ml. tw2 Outcome: 11:32 Decision to Hospitalize by Provider. cp 13:14 Admitted to Med/surg accompanied by tech, via stretcher, room 410, Report called to tw2 TABATHA Rome 13:14 Condition: stable 13:14 Instructed on the need for admit. 13:30 Patient left the ED. tw2 Signatures: Dispatcher [employer] EDShannan Lombardi RN RN ss Luis Ruvalcaba PA PA cp Barber, Rebecca, TABATHA RN [facility] Azucena Matthews RN RN tw2 Corrections: (The following items were deleted from the chart) 09:08 09:02 NS 0.9% 500 ml IV at bolus in right upper arm tw2 tw2 09:10 09:07 Inserted MIDLINE POWERGLIDE 20 gauge 10 cm, L upper arm inserted with aseptic tw2 technique. Blood return noted, flushes easily. Pt tolerated well. Blood collected ss
[2020-03-05] MEDS ORDERED: METOCLOPRAMIDE 10 MG/2mL INJ ONE (12:17)
--- NOTE | 2020-03-05 12:24 | P.HP ---
Certification for Inpatient Patient admitted to: Observation With expected LOS: <2 Midnights Practitioner: I am a practitioner with admitting privileges, knowledge of patient current condition, hospital course, and medical plan of care. Services: Services provided to patient in accordance with Admission requirements found in Title 42 Section 412.3 of the Code of Federal Regulations Patient History Date of Service: 03/05/20 History of Present Illness: 39yo female presents with nausea/vomiting and abdominal pain that began yesterday. Started with nausea/vomiting after dialysis yesterday. Abdominal pain began late yesterday evening and persisted until today. She has had similar episodes in the past. The pain feels like a "connie horse" in the middle of her abdomen. She reports she was otherwise in her usual state of health. Denies recent fevers, chills, vision changes, SOB, chest pain, changes in bowel/bladder function, rashes, lesions. She last had a normal BM this morning. In the ED, she had minimal relief with zofran and phenergan. Labwork was remarkable for Cr: 4.97, Hgb: 10.0, G, no leukocytosis, normal lipase. A CT abd/pelvis was performed: Thickening of the wall distal esophagus may be secondary to inflammation or mass, Mild splenomegaly, Cholelithiasis without evidence of cholecystitis. HPI limited due to patient's nausea/vomiting. Patient with multiple medical problems including diabetes, ESRD on dialysis, anemia of chronic disease, GERD, schizoaffective disorder, hypertension. Allergies zolpidem tartrate [From Ambien] Allergy (Intermediate, Verified 10/17/16 23:08) Itching/Hives/Rash codeine [Codeine] Allergy (Verified 10/17/16 23:08) Hives fluphenazine enanthate [From Prolixin] Allergy (Verified 10/17/16 23:08) ARM NUMBNESS fluphenazine HCl [From Prolixin] Allergy (Verified 10/17/16 23:08) ARM NUMBNESS guaifenesin [From Prolex D] Allergy (Verified 10/17/16 23:08) Hives lisinopril Allergy (Verified 04/21/17 10:26) Anaphylaxis Penicillins Allergy (Verified 10/17/16 23:08) Hives phenylephrine HCl [From Prolex D] Allergy (Verified 10/17/16 23:08) Hives nitrofurantoin Adverse Reaction (Verified 08/07/17 23:41) liver failure Home Medications: Calcium Acetate [Phoslo*] 2 cap PO TIDWM 03/05/20 Calcium Acetate [Phoslo*] 667 mg PO SNACKS 03/05/20 Divalproex Sodium [Divalproex Sodium ER] 500 mg PO BID 03/05/20 Linagliptin [Tradjenta] 5 mg PO DAILY 03/05/20 Sertraline [Zoloft*] 50 mg PO DAILY 03/05/20 Trazodone HCl 100 mg PO BEDTIME PRN PRN 03/05/20 buPROPion HCL [Bupropion Xl] 300 mg PO DAILY 03/05/20 glipiZIDE [Glipizide] 5 mg PO BID 03/05/20 - Past Medical/Surgical History Diabetic: Yes -: DM Type 2 -: Seizure disorder -: Chronic renal disease -: DM Gastroparesis -: DM Neuropathy -: Insomnia -: Obesity -: JAYLA -: Hypertension -: Post traumatic stress disorder -: Schizoaffective disorder -: CHF, diastolic -: I/D of the right elbow -: 2 previous C-sections -: Tubal ligation Psychosocial/ Personal History: She is , she has 2 children, she does not work. - Family History Mother -: Hypertension, Diabetes, Cancer, Other (see notes) Notes: hypothyroid, asthma, breast cancer Father -: Diabetes, Cancer Notes: - stomach/ lung/ prostate cancer, diabetes - Social History Smoking Status: Smoker current status UNK Alcohol use: No CD- Drugs: No Caffeine use: Yes Review of Systems 10-point ROS is otherwise unremarkable Physical Examination - Physical Exam General: Moderate distress (dry heaving, moderate pain) HEENT: Sclerae nonicteric Neck: Supple, No LAD Respiratory: Clear to auscultation bilaterally, Normal air movement Cardiovascular: No edema, Regular rate/rhythm, Normal S1 S2 Gastrointestinal: Soft and benign, Non-distended, Tenderness (periumbilical) Musculoskeletal: No tenderness Integumentary: No rashes Neurological: Normal speech, Normal affect - Studies Laboratory Data (last 24 hrs) 03/05/20 09:00: Magnesium Cancelled 03/05/20 09:00: WBC 5.7, Hgb 10.0 L, Hct 28.1 L, Plt Count 115 L 03/05/20 09:00: Sodium 140, Potassium 4.5, BUN 17, Creatinine 4.97 H, Glucose 270 H, Magnesium 1.8, Total Bilirubin 0.8, AST 24, ALT 20, Alkaline Phosphatase 72, Lipase 77 Assessment and Plan - Advance Directives Does patient have a Living Will: No Does patient have a Durable POA for Healthcare: No Physician Review Additional Text: Intractable nausea/vomiting Abdominal pain diabetes, complicated by gastroparesis ESRD on Dialysis (MWF) anemia of chronic disease GERD schizoaffective disorder HTN Intractable nausea/vomiting Abdominal pain -patient has presented to the ED multiple times for this issue, labwork rather unremarkable, CT as well -phenergan and Zofran had minimal effect in the ED -will try Reglan given history of gastroparesis -morphine for pain control diabetes, complicated by gastroparesis -insulin sliding scale ESRD on Dialysis (MWF) -nephrology consulted for dialysis anemia of chronic disease -stable GERD -Protonix given in the ED -CT with thickening of the distal esophagus wall schizoaffective disorder -continue home meds once verified HTN -continue home meds once verified, IV hydralazine p.r.n. VTE: lovenox Code: Full Dispo: obs, anticipate discharge home tomorrow Time Spent Managing Pts Care (In Minutes): 55
[2020-03-05] MEDS ORDERED: METOCLOPRAMIDE 10 MG/2mL INJ IV PRN (13:28)
[2020-03-05 14:01] VITALS: BMI 34.0
[2020-03-05] MEDS ORDERED: HYDRALAZINE HCL 20 MG/ML VIAL IV PRN (14:14)
[2020-03-05] MEDS: ONDANSETRON 4 MG/2 ML VIAL IV PRN (15:08)
[2020-03-05] MEDS: MORPHINE 2 MG/ML SYR IV PRN (16:13)
[2020-03-05] MEDS: INSULIN -REGULAR HUMAN 50 UNIT/0.5 ML ML SQ SCH ×2 (16:30→20:22)
[2020-03-05] MEDS ORDERED: SODIUM CHLORIDE 0.9% 10ML INJ IV PRN (18:06)
[2020-03-06] MEDS: MORPHINE 2 MG/ML SYR IV PRN ×3 (00:35→14:36)
[2020-03-06] MEDS: ONDANSETRON 4 MG/2 ML VIAL IV PRN ×2 (00:36→14:36)
[2020-03-06 04:17] LABS: Absolute Lymphocytes (CBC) 1.2 K/uL (0.7-4.9); Basophils % 1.3 % (0-1.3); Hematocrit 27.1 % (36.0-45.0); Lymphocytes % 27.3 % (15.3-44.8); MPV 11.1 fL (7.6-11.3); RBC Red Blood Cell Count 2.81 M/uL (3.86-4.86)
[2020-03-06 04:34] LABS: Albumin 2.9 g/dL (3.4-5.0); Bilirubin Total 0.5 mg/dL (0.2-1.0); Potassium 4.2 mmol/L (3.5-5.1); Protein, Total 6.4 g/dL (6.4-8.2)
[2020-03-06] MEDS ORDERED: MANNITOL 25% 12.5 GM/50 ML VIAL IV PRN (07:19)
[2020-03-06] MEDS ORDERED: NA CHLORIDE 0.9% 1,000 ML IV PRN (07:19)
[2020-03-06] MEDS: INSULIN -REGULAR HUMAN 50 UNIT/0.5 ML ML SQ SCH ×3 (07:30→16:30)
[2020-03-06] MEDS: SEVELAMER CARBONATE 800 MG TABLET PO SCH ×3 (07:53→17:00)
[2020-03-06] MEDS ORDERED: ALBUMIN HUMAN 25% 50 ML IV SCH (08:00)
[2020-03-06 08:30] VITALS: O2SAT 98
[2020-03-06] MEDS ORDERED: ENOXAPARIN 30 MG/0.3 ML SQ SCH (09:00)
[2020-03-06] MEDS ORDERED: CALCITROL 0.25 MCG CAP PO SCH (09:00)
[2020-03-06] MEDS ORDERED: PANTOPRAZOLE 40 MG INJ IVP SCH (09:00)
[2020-03-06] MEDS ORDERED: VITAMIN D 5,000 UNIT CAP PO SCH (09:00)
[2020-03-06 12:49] LABS: Urine Appearance CLOUDY; Urine Bilirubin NEGATIVE (NEG); Urine Blood NEGATIVE (NEG); Urine Color YELLOW; Urine Glucose 1+ (NEG); Urine Protein 3+ (NEG); Urine Specific Gravity 1.015 (1.005-1.030); Urine Urobilinogen 0.2 mg/dL (0.2-1.0)
[2020-03-06 12:50] LABS: Urine Microscopic Reflex ORDER UMIC
[2020-03-06 13:01] LABS: Urine Bacteria >50 /HPF (<20); Urine Culture Reflex Order REFLEXED; Urine RBC <5 /HPF (NONE SEEN)
[2020-03-06 14:03] VITALS: BP 145/70; TEMP 97.8
[2020-03-06] MEDS ORDERED: EPOETIN ALFA-EPBX 4,000 UNIT/ML VIAL SQ SCH (17:00)
--- NOTE | 2020-03-06 21:38 | P.CNS ---
Date of Consult: 03/06/20 Reason for Consult: ESRD Requesting Physician: Hugh Stallworth Chief Complaint: Abdominal Pain History of Present Illness: 39yo female presents with nausea/vomiting and abdominal pain that began yesterday. Started with nausea/vomiting after dialysis yesterday. Abdominal pain began late yesterday evening and persisted until today. She has had similar episodes in the past. The pain feels like a "connie horse" in the middle of her abdomen. She reports she was otherwise in her usual state of health. Denies recent fevers, chills, vision changes, SOB, chest pain, changes in bowel/bladder function, rashes, lesions. She last had a normal BM this morning. In the ED, she had minimal relief with zofran and phenergan. Labwork was remarkable for Cr: 4.97, Hgb: 10.0, G, no leukocytosis, normal lipase. A CT abd/pelvis was performed: Thickening of the wall distal esophagus may be secondary to inflammation or mass, Mild splenomegaly, Cholelithiasis without evidence of cholecystitis. HPI limited due to patient's nausea/vomiting. Patient with multiple medical problems including diabetes, ESRD on dialysis, anemia of chronic disease, GERD, schizoaffective disorder, hypertension. 09:20 This 39 yrs old Female presents to ER via EMS with complaints of Abdominal cp Pain, Nausea/Vomiting. 09:20 The patient presents with abdominal pain in the epigastric area. Onset: The cp symptoms/episode began/occurred yesterday. Associated signs and symptoms: Pertinent positives: nausea and vomiting, Pertinent negatives: constipation, diarrhea, fever, vomiting blood. Severity of pain: in the emergency department the pain is unchanged despite home interventions. Allergies zolpidem tartrate [From Ambien] Allergy (Intermediate, Verified 10/17/16 23:08) Itching/Hives/Rash codeine [Codeine] Allergy (Verified 10/17/16 23:08) Hives fluphenazine enanthate [From Prolixin] Allergy (Verified 10/17/16 23:08) ARM NUMBNESS fluphenazine HCl [From Prolixin] Allergy (Verified 10/17/16 23:08) ARM NUMBNESS guaifenesin [From Prolex D] Allergy (Verified 10/17/16 23:08) Hives lisinopril Allergy (Verified 04/21/17 10:26) Anaphylaxis Penicillins Allergy (Verified 10/17/16 23:08) Hives phenylephrine HCl [From Prolex D] Allergy (Verified 10/17/16 23:08) Hives nitrofurantoin Adverse Reaction (Verified 08/07/17 23:41) liver failure Home medications list reviewed: Yes Home Medications: Calcium Acetate [Phoslo*] 2 cap PO TIDWM 03/05/20 Calcium Acetate [Phoslo*] 667 mg PO SNACKS 03/05/20 Divalproex Sodium [Divalproex Sodium ER] 500 mg PO BID 03/05/20 Linagliptin [Tradjenta] 5 mg PO DAILY 03/05/20 Sertraline [Zoloft*] 50 mg PO DAILY 03/05/20 Trazodone HCl 100 mg PO BEDTIME PRN PRN 03/05/20 buPROPion HCL [Bupropion Xl] 300 mg PO DAILY 03/05/20 glipiZIDE [Glipizide] 5 mg PO BID 03/05/20 Metoclopramide HCl [Reglan] 1 tab PO Q8HR 20 Days #60 tablet 03/06/20 Pantoprazole Sodium [Protonix] 1 tab PO DAILY 30 Days #30 tablet. 03/06/20 - Past Medical/Surgical History Diabetic: Yes -: DM Type 2 -: Seizure disorder -: Chronic renal disease -: DM Gastroparesis -: DM Neuropathy -: Insomnia -: Obesity -: JAYLA -: Hypertension -: Post traumatic stress disorder -: Schizoaffective disorder -: CHF, diastolic -: I/D of the right elbow -: 2 previous C-sections -: Tubal ligation Psychosocial/ Personal History: She is , she has 2 children, she does not work. - Family History Mother Medical History: Hypertension, Diabetes, Cancer, Other (see notes) Notes: hypothyroid, asthma, breast cancer Father Medical History: Diabetes, Cancer Notes: - stomach/ lung/ prostate cancer, diabetes - Social History Smoking Status: Current every day smoker Alcohol use: No CD- Drugs: No Caffeine use: Yes Place of Residence: Home Review of Systems 10-point ROS is otherwise unremarkable General: Weakness, Malaise Respiratory: SOB with Excertion Gastrointestinal: Nausea, Vomiting, Abdominal Pain Neurological: Weakness Physical Examination Temp Pulse Resp BP Pulse Ox 97.8 F 70 18 145/70 H 97 03/06/20 12:00 03/06/20 12:00 03/06/20 15:06 03/06/20 12:00 03/06/20 15:06 General: In no apparent distress, Oriented x3, Cooperative HEENT: Atraumatic Neck: Supple Respiratory: Clear to auscultation bilaterally Cardiovascular: No edema, Regular rate/rhythm Gastrointestinal: Soft and benign, Non-distended, Tenderness Musculoskeletal: No clubbing, No contractures Integumentary: No rashes, No cyanosis Neurological: Normal speech Laboratory Data (last 24 hrs) 03/06/20 03:46: Sodium 142, Potassium 4.2, BUN 24 H, Creatinine 6.16 H* D, Glucose 124 H, Magnesium 2.0, Total Bilirubin 0.5, AST 16, ALT 17, Alkaline Phosphatase 58 03/06/20 03:46: WBC 4.5 D, Hgb 9.3 L, Hct 27.1 L, Plt Count 117 L Imagings Data: EXAM DESCRIPTION: CT - Abdomen Pelvis Wo Contrast - 03/05/2020 10:28 am CLINICAL HISTORY: Abdominal pain COMPARISON: 2016 TECHNIQUE: Computed axial tomography of the abdomen and pelvis was obtained. IV and oral contrast were not requested. All CT scans are performed using dose optimization technique as appropriate and may include automated exposure control or mA/KV adjustment according to patient size. FINDINGS: The evaluation of solid organs, vessels and bowel is limited secondary to the lack of contrast administration. Gallstones. Gallbladder wall is not thickened. Spleen measures 13 centimeters. The liver, pancreas, adrenals and kidneys appear grossly normal. Vascular calcifications are present. Wall of the distal esophagus is thickened. There is no evidence of diverticulitis. Normal appendix IMPRESSION: Thickening of the wall distal esophagus may be secondary to inflammation or mass Mild splenomegaly Cholelithiasis without evidence of cholecystitis Conclusions/Impression: A/ ESRD on HD HTN with CKD/ CHF JAYLA Diastolic CHF, chronic DM II with CKD & Polyneuropathy Anemia in CKD DUSTIN/ Secondary HyperPTH P/ Continue current POC and Medications. Acute HD as ordered. Restart home medications as indicated. Recommend Retacrit. Recommend Vitamin D. No NSAIDs. AM labs. Daily weight.
--- NOTE | 2020-03-06 21:44 | P.DS ---
Admission Date: 03/06/20 Discharge Date: 03/06/20 Disposition: ROUTINE DISCHARGE Discharge Condition: FAIR Reason for Admission: Abdominal Pain Consultations: Nephrology - Dr. Morin for dialysis Procedures: CT - Abdomen Pelvis Wo Contrast - 03/05/2020 10:28 am Gallstones. Gallbladder wall is not thickened. Spleen measures 13 centimeters. The liver, pancreas, adrenals and kidneys appear grossly normal. Vascular calcifications are present. Wall of the distal esophagus is thickened. There is no evidence of diverticulitis. Normal appendix IMPRESSION: Thickening of the wall distal esophagus may be secondary to inflammation or mass Mild splenomegaly Cholelithiasis without evidence of cholecystitis Problem List Intractable nausea/vomiting Abdominal pain diabetes, complicated by gastroparesis ESRD on Dialysis (MWF) anemia of chronic disease GERD schizoaffective disorder HTN Brief History of Present Illness: 39yo female presents with nausea/vomiting and abdominal pain that began yesterday. Started with nausea/vomiting after dialysis yesterday. Abdominal pain began late yesterday evening and persisted until today. She has had similar episodes in the past. The pain feels like a "connie horse" in the middle of her abdomen. She reports she was otherwise in her usual state of health. Denies recent fevers, chills, vision changes, SOB, chest pain, changes in bowel/bladder function, rashes, lesions. She last had a normal BM this morning. In the ED, she had minimal relief with zofran and phenergan. Labwork was remarkable for Cr: 4.97, Hgb: 10.0, G, no leukocytosis, normal lipase. A CT abd/pelvis was performed: Thickening of the wall distal esophagus may be secondary to inflammation or mass, Mild splenomegaly, Cholelithiasis without evidence of cholecystitis. HPI limited due to patient's nausea/vomiting. Patient with multiple medical problems including diabetes, ESRD on dialysis, anemia of chronic disease, GERD, schizoaffective disorder, hypertension. Hospital Course: Patient was treated with IV reglan and morphine for pain control. She had improvement and eventual resolution of her symptoms on the day after admission. On day of discharge, she was tolerating a full liquid diet without nausea/vomiting or abdominal pain. She was discharged after receiving hemodialysis. She was discharged home with Reglan and advised to f/u with her PCP. Vital Signs/Physical Exam: Temp Pulse Resp BP Pulse Ox 97.8 F 70 18 145/70 H 97 03/06/20 12:00 03/06/20 12:00 03/06/20 15:06 03/06/20 12:00 03/06/20 15:06 General: Alert, In no apparent distress HEENT: Mucous membr. moist/pink, Sclerae nonicteric Neck: No LAD Respiratory: Clear to auscultation bilaterally, Normal air movement Cardiovascular: No edema, Regular rate/rhythm, Normal S1 S2 Gastrointestinal: Normal bowel sounds, Soft and benign, Non-distended, No tenderness Musculoskeletal: No erythema, No tenderness Integumentary: No rashes Neurological: Normal speech, Normal affect Laboratory Data at Discharge: WBC 4.5 K/uL (4.3-10.9) D 03/06/20 03:46 Hgb 9.3 g/dL (12.0-15.0) L 03/06/20 03:46 Hct 27.1 % (36.0-45.0) L 03/06/20 03:46 Plt Count 117 K/uL (152-406) L 03/06/20 03:46 Sodium 142 mmol/L (136-145) 03/06/20 03:46 Potassium 4.2 mmol/L (3.5-5.1) 03/06/20 03:46 BUN 24 mg/dL (7-18) H 03/06/20 03:46 Creatinine 6.16 mg/dL (0.55-1.3) H* D 03/06/20 03:46 Glucose 124 mg/dL (74-106) H 03/06/20 03:46 Magnesium 2.0 mg/dL (1.8-2.4) 03/06/20 03:46 Total Bilirubin 0.5 mg/dL (0.2-1.0) 03/06/20 03:46 AST 16 U/L (15-37) 03/06/20 03:46 ALT 17 U/L (12-78) 03/06/20 03:46 Alkaline Phosphatase 58 U/L (45-117) 03/06/20 03:46 Lipase 77 U/L (73-393) 03/05/20 09:00 Home Medications: Calcium Acetate [Phoslo*] 2 cap PO TIDWM 03/05/20 Calcium Acetate [Phoslo*] 667 mg PO SNACKS 03/05/20 Divalproex Sodium [Divalproex Sodium ER] 500 mg PO BID 03/05/20 Linagliptin [Tradjenta] 5 mg PO DAILY 03/05/20 Sertraline [Zoloft*] 50 mg PO DAILY 03/05/20 Trazodone HCl 100 mg PO BEDTIME PRN PRN 03/05/20 buPROPion HCL [Bupropion Xl] 300 mg PO DAILY 03/05/20 glipiZIDE [Glipizide] 5 mg PO BID 03/05/20 Metoclopramide HCl [Reglan] 1 tab PO Q8HR 20 Days #60 tablet 03/06/20 Pantoprazole Sodium [Protonix] 1 tab PO DAILY 30 Days #30 tablet. 03/06/20 New Medications: Metoclopramide HCl [Reglan] 1 tab PO Q8HR 20 Days #60 tablet Pantoprazole Sodium [Protonix] 1 tab PO DAILY 30 Days #30 tablet. Patient Discharge Instructions: follow up with PCP within 1-2 weeks. Continue dialysis as scheduled Diet: Renal Activity: Ad monique Followup: Jose Miguel Morin DO [ACTIVE - CAN ADMIT] - (call to schedule appointment) Time spent managing pt's care (in minutes): 35
== END 2020-03-06 18:48 | disposition home or self-care (01) | DRG 73 ==
LOC: ER 08:16 → ERHOLD 12:25 → 4TH 13:13 → OBSVTOIN 03-06 14:44
PROVIDERS: ADMIT Hospitalist; ATTEND Hospitalist
PROC: 5A1D70Z Performance of Urinary Filtration, Intermittent, Less than 6 Hours Per Day (ICD-10-PCS; principal; 2020-03-06)
DX: E11.43 Type 2 diabetes mellitus with diabetic autonomic (poly)neuropathy (principal); N18.6 End stage renal disease; I13.2 Hypertensive heart and chronic kidney disease with heart failure and with stage 5 chronic kidney disease, or end stage renal disease; I50.32 Chronic diastolic (congestive) heart failure; N25.81 Secondary hyperparathyroidism of renal origin; K31.84 Gastroparesis; E11.22 Type 2 diabetes mellitus with diabetic chronic kidney disease; D63.8 Anemia in other chronic diseases classified elsewhere; N25.0 Renal osteodystrophy; E11.42 Type 2 diabetes mellitus with diabetic polyneuropathy; F25.9 Schizoaffective disorder, unspecified; K21.9 Gastro-esophageal reflux disease without esophagitis; D63.1 Anemia in chronic kidney disease; G47.33 Obstructive sleep apnea (adult) (pediatric); Z88.1 Allergy status to other antibiotic agents; Z88.5 Allergy status to narcotic agent; Z88.0 Allergy status to penicillin; Z88.8 Allergy status to other drugs, medicaments and biological substances; Z98.51 Tubal ligation status; Z99.2 Dependence on renal dialysis; Z79.84 Long term (current) use of oral hypoglycemic drugs; Z79.899 Other long term (current) drug therapy
CPT/HCPCS: 36415; 74176; 80048; 80053; 80076; 81003; 81015; 82947; 83690; 83735; 85025; 87077; 87086; 87088; 87186; 96374; 96375; 99285; C9113; G0257; G0378; J0360; J1650; J2270; J2405; J2765; J7040; Q5106; U0002

== ENCOUNTER 2020-06-10 06:32 | Emergency (ER) | payer OTHER ==
--- OUTSIDE RECORDS SUMMARY | 2020-06-10 06:34 | XMS REPORT | Clinical Summary ---
:[address] [facility] Address [address] [place] [address] Care Team Providers Name Role Phone Sharpvolodymyr Primary Care Provider Allergies Active Allergy Reactions [...] Active 500 MG EC mouth daily. tabletIndications: depression associated with bipolar disorder ondansetron (ZOFRAN) 4 Take 4 mg by [...] by mouth 0 Active MG tabletIndications: daily. anxiety with depression medroxyPROGESTERone Inject 0 Active (DEPO-PROVERA) [...] Not on file Last Filed Vital Signs Not on file Plan of Treatment Not on file Results Not on fileafter 06/10/2019 Advance Directives For more information, please contact: [phone] Code Status Date Activated Date Inactivated Comments Full Code 01/03/2017 1:56 AM 01/07/2017 5:21 PM This code status was determined by: Patient
--- OUTSIDE RECORDS SUMMARY | 2020-06-10 06:43 | XMS REPORT | Continuity of Care Document ---
:1980 Author Organization [employer] Care Team Providers Name Role Phone [employer] Unavailable Un available Problems Problem Status Onset Classification Date Comments Sourc e Date Reported NEW EVALUATION [place]19 [place] [facility] CONGESTION AMD Active 07/23/19 [facility] [place] DIARRHEA 17 [facility] ACUTE RESP Active 07/23/19 [facility] FAILURE [address] [place] [address] SOB/SWELLING Active 06/10/[address] CHF/RENAL DISEASE Active 06/10/[address] Center Discharge 06/26/19 06/28/2014 [facility] Diagnosis: 15 [facility] Gastroparesis Center ABDOMINAL PAIN, Active 06/26/19 [facility] [place] SEIZURES 14 [facility] ABD PAIN Active 04/14/[address] GASTROPERISIS Active 08/02/19 Baljinder as [address] [place] [address] Center ABDOMINAL PAIN Active 03/14/[address] NAUSEA, VOMITING Active 03/14/[address] Nausea and Resolved 11/29/19 Problem 08/02/2016 [facility] vomiting [address] [place] [address] (disorder) [facility] VOMITTING Active 11/28/[address] N/V INABILITY TO Active 11/28/19 [facility] TOLERATE PO [address] [place] [address] Center VOMITTING, HIGH Active 09/18/19 [facility] [place] BLOOD SUGAR [address] [place] [address] MRSA Active 09/01/19 Problem 03/16/2012 - [place] 12 2Problem added by Jodie scerlisa Expert. [facility] Methicillin Active 09/01/19 Problem 08/02/2016 09/01/11 - [place] resistant 12 Problem added by Bertin cern Expert. [facility] ([facility]ism[facility] Active 08/31/19 [facility] ABSCESS/HYPERGLYC 12 [facility], [facility]LOOD Active 08/31/19 [facility] [place] SUGAR READINGS 12 [facility] Center Hypokalemia Active 08/23/19 Problem 03/16/2012 [facility] [place] [facility] Hypokalemia Resolved 08/23/19 Problem 08/02/[place] [facility] [facility] Disorder of Resolved 08/23/19 Problem 08/02/2016 Amisha lombardo magnesium Medical metabolism Center (disorder) Hyperglycemia Inactive 08/20/19 Problem 03/16/2012 [place] [facility] Hyperglycemia Resolved 08/20/19 Problem 08/02/2016 [place] [facility] [facility] DKA (diabetic Resolved 08/19/19 Problem 04/22/2013 [place] ketoacidoses[place] [facility] Ketoacidosis in Resolved 08/19/19 Problem 08/02/2016 [facility] diabetes mellitus [facility] dical (disorder) Center VOMITING Active 08/19/[address] DKA Active 08/19/[address] Hypoglycemia Inactive Problem 04/22/2013 (disorder) [facility] Hypomagnesemia Active Problem 04/22/2013 [facility] Hypertension Active Problem 03/16/2012 [facility] as Medical Center[facility] Hypoglycemia Inactive Problem 03/16/2012 [facility] Nausea and Active Problem 03/16/2012 [facility] vomiting [facility] Diabetes mellitus Resolved Problem 08/02/2016 [facility] (disorder) [facility] Gastroparesis Resolved Problem 08/02/2016 [facility] [place] (disorder) [facility] Hypertensive Resolved Problem 08/02/2016 Baljinder as disorder, Medical systemic arterial Ce nter, (disorder) [facility] Psychiatric Resolved Problem 08/02/2016 [facility] (finding) Seizure (finding) Resolved Problem 08/02/2016 [facility] Final: Acute 08/02/2016 Baljinder as respiratory Medical failure, Center unspecified whether with hypoxia or hypercapnia DMI KETOACD Active [facility] UNCONTROLD [facility] OTHER GENERAL Active Baljinder as [facility] HEART FAILURE, [place] [facility] ACUTE RESPIRATORY Active [facility] FAILURE, UNSP W [facility] HYPOXI Center Medications Medication Details Route Status Patient Ordering Order Source Instructions Provider Date Furosemide 40 MG 40 mg = 1 [place] Oral Tablet tab, PO, 2017 Medical Daily, # 30 Center tab, 0 Refill(s), Pharmacy: [facility] [id number] Bumex 0.5 mg, No Longer [place] Route: PO, Active 2016 Medical Drug form: Center TAB, Daily, Dosing Weight 92.273, kg, Start date: 07/30/16 9:00:00 DRUM ATTENDANT, Duration: 30 day, Stop date: 08/28/16 9:00:00 DRUM ATTENDANT Lasix Notes: (Same No Longer [place] as: Lasix) Active 2017 Medical May cause [...] Total Volume: 1,000, Start date: 07/26/16 12:26:00 DRUM ATTENDANT, Duration: 30 day, Stop date: 08/25/16 12:25:00 DRUM ATTENDANT Sodium Chloride 500 mL, 500 Inactive Micki 0.154 MEQ/ML ml/hr, Infuse 2017 Medic al Injectable Over: 1 hr, Center Solution Route: IV, 500, Drug form: INJ, ONCE, Priority: STAT, Dosing Weight 92.273 kg, Start date: 07/26/16 7:30:00 DRUM ATTENDANT, Duration: 1 doses or times, Stop date: 07/26/16 7:30:00 DRUM ATTENDANT Insulin regular 60 units) Inactive M[place] WASTE: [...] Longer [place] as: Lipitor) Active 2016 [facility] divalproex sodium Notes: (Same No Longer [place] as: Depakote Active 2016 Medical ER) Once Center daily dosing; indicated for migraines. Divalproex sodium extended-rele ase tab. Do not chew or crush. "Do Not Crush" Lasix Notes: (Same No Longer [facility] as: Lasix) Active 2017 Medical Center MEDICATION WASTE Product Size: 40 mg Product Wasted: ___ mg Tylenol Notes: Max No Longer [place] acetaminophen Active 2016 Medical = 4000mg/day Center (4 gm/day). (Same as: Tylenol) Bupropion 150 mg, 1 No Longer [place] tab, Route: Active 2017 Medical PO, Drug Center form: ERTAB, Daily, Dosing Weight 92.273, kg, Start date: 07/24/16 9:00:00 DRUM ATTENDANT, Duration: 30 day, Stop date: 08/22/16 9:00:00 DRUM ATTENDANT 24 HR Divalproex Notes: (Same No Longer [place] Sodium 500 MG as: Depakote Active 2016 Medic al Extended Release ER) Center Tablet [Depakote] gabapentin 300 MG Notes: (Same No Longer [place] Oral Capsule as: Active 2017 Medical Neurontin) Center Aspirin 81 MG Notes: Take No Longer [place] Chewable Tablet with food. Active 2017 Medic al Center Lasix Notes: (Same Inactive [facility] as: Lasix) 2017 Medical Center MEDICATION WASTE Product Size: 40 mg Product Wasted: ___ mg Zoloft Notes: (Same No Longer [facility] as: Zoloft) Active 2017 Medical Center Protonix Notes: Tablet [place]er [place] should not be Active 2017 Medical chewed or Center crushed. (Same as: Protonix) metoprolol 100 mg, 2 No Longer [facility] extended release tab, Route: Active 2017 Med ical PO, Drug Center form: ERTAB, Daily, Start date: 07/24/16 9:00:00 DRUM ATTENDANT, Duration: 30 day, Stop date: 08/22/16 9:00:00 DRUM ATTENDANT Insulin Glargine Notes: Same No Longer [place] 100 UNT/ML as: Lantus) Active 2017 Medical Injectable Do not hold Center Solution [Lantus] insulin without contacting prescriber WASTE: F/P - Black; E - Municipal Trash Bin Hydralazine Notes: (Same [place] Longer [place] Hydrochloride 100 as: Active 2016 Medica l MG Oral Tablet Apresoline) Cente r May interfere w/enteral feedings Take With Food Ondansetron Notes: (Same Inactive [facility] as as: Zofran) 2017 Medical Center MEDICATION WASTE Product Size: 4 mg Product Wasted: ___ mg Morphine Notes: (Same Inactive [facility] as:MORPhine 2017 Medical Sulfate) Center Insulin, [...] _Date Glucagon 1 mg, Route: No Longer [place] IM, Drug Active 2016 Medical form: [place] PDR/INJ, PRN, Dosing Weight 92.273, kg, PRN Blood Glucose Results, Start date: 07/24/16 2:40:00 DRUM ATTENDANT, Duration: 30 day, Stop date: 08/23/16 2:39:00 DRUM ATTENDANT Dextrose 50% 25 gm, 50 mL, No Longer [place] Syringe Route: IVP, Active 2016 Medical Drug Form: [place] INJ, Dosing Weight 92.273, kg, PRN, PRN Blood Glucose Results, Start date: 07/24/16 2:40:00 DRUM ATTENDANT, Duration: 30 day, Stop date: 08/23/16 2:39:00 DRUM ATTENDANT Docusate Notes: (Same No Longer [place] as: Colace) Active 2017 Medical (Do Not Center Crush) Ondansetron Notes: (Same [place] as: Zofran) Active 2017 Medical Center MEDICATION WASTE Product Size: 4 mg Product Wasted: ___ mg Lasix Notes: (Same Inactive [facility] as: Lasix) 2017 Medical Center MEDICATION WASTE Product Size: 40 mg Product Wasted: ___ mg Aspirin Notes: Take No Longer [facility] with food. Active 2017 Medical Center Prednisone Notes: Take Inactive [facility] with food. 2017 Medical [place] Albuterol 0.833 Notes: (Same No Longer H [place] MG/ML / as: Duoneb) Active 2017 Medical Ipratropium [place] 0.167 MG/ML Inhalant Solution [DuoNeb] Furosemide 40 [...] 100 mg 100 mg = 1 Active [facility] oral tablet, tab, PO, 2016 Medical extended release Daily, # [address] tab, 0 Refill(s) Hydralazine 100 mg = 1 Active [facility] Hydrochloride 100 tab, PO, BID, 2016 Medical MG Oral Tablet # 60 tab, 0 Cente r Refill(s) 200 ACTUAT 2 puff, Active [facility] Albuterol 0.09 INHALATION, 2016 Medic al MG/ACTUAT Metered PRN, PRN as Ce nter Dose Inhaler needed for wheezing, use as needed for shortness of breath or wheezing, # 8 gm, 0 Refill(s) Aspirin 81 MG 81 mg = 1 Active [facility] Chewable Tablet tab, PO, 2015 Medical Daily, # 30 Center tab, 0 Refill(s) Hydroxyzine 50 mg = 1 Active [facility] Hydrochloride 50 cap, PO, TID, 2015 M edical MG Oral Capsule X 30 day, # Cent er 90 cap, 0 Refill(s) losartan 25 mg 25 mg = 1 [place] oral tablet tab, PO, 2015 Medical Daily, # 30 Center tab, 0 Refill(s) Lasix Notes: (Same Inactive 06/15[facility] as: Lasix) 2016 Medical May cause GI Center upset. Give with food or milk. Magnesium Oxide Notes: (Same Inactive [facility] as: Calibrus-Ox 2016 Medical 400) [place] Magnesium oxide [id number] elemental magnesium Dose=____mg magnesium oxide (___mg elemental magnesium) Magnesium Oxide Notes: (Same Inactive 06/13[facility] as: [facility]-Ox 2016 Medical 400) [place] Magnesium oxide [id number] elemental magnesium Dose=____mg magnesium oxide (___mg elemental magnesium) 24 HR Nifedipine Notes: (Same Inactive H [place] 30 MG Extended as: Adalat 2015 Medica l Release Tablet CC, Procardia [place] [address] [Procardia] XL) Give on empty stomach. Take 1 hour before or 2 hours after meal; "Avoid grapefruit and grapefruit juice". Do not crush hydrALAZINE 50 mg Notes: (Same No Longer [place] oral tablet as: Active 2015 Medical Apresoline) Center May interfere w/enteral feedings Take With Food Wellbutrin XL Notes: (Same No Longer [place] as: Active 2015 Medical Wellbutrin Center XL) "Do Not Crush" Norvasc Notes: (Same Inactive [place] as: Norvasc) 2016 [facility] Center Insulin Glargine Notes: Same No Longer H [place] 100 UNT/ML as: Lantus) Active 2015 Medical Injectable Do not hold Center Solution [Lantus] insulin without contacting prescriber WASTE: F/P - Black; E - Municipal Trash Bin 1 ML paliperidone IM, qMonth, 0 Active [place] palmitate 156 Refill(s) 2015 Medical MG/ML Prefilled Center Syringe [Invega] amLODIPine 10 mg 10 mg = 1 No Longer [place] oral tablet tab, PO, Active 2015 Medical Daily, 0 Center Refill(s) pravastatin 40 mg 40 mg = 1 No Longer [place] oral tablet tab, PO, Active 2015 Medical Daily, 0 Center Refill(s) Sertraline 100 MG 200 mg = 2 Active [place] Oral Tablet tab, PO, 2016 Medical [Zoloft] Daily, 0 Center Refill(s) pantoprazole 40 40 mg = 1 Active Baljinder as MG Enteric Coated tab, PO, 2016 Medic al Tablet [Protonix] Daily, 0 Cente r Refill(s) gabapentin 300 MG 1 CAP PO BID Active H [place] Oral Capsule AND 1 CAP AT 2016 [...] 500 MG tab, PO, QAM, 2016 Medi at[place] Extended Release AND 2 TAB AT Ce nter Tablet [Depakote] BEDTIME, 0 Refill(s) atorvastatin Notes: (Same [place] Longer [place] as: Lipitor) Active 2016 [facility] Lactulose Notes: (Same [place] as:Chronulac) Active 2016 [facility] Furosemide Notes: (Same No Longer Baljinder as as: Lasix) Active 2016 [facility] Center MEDICATION WASTE Product Size: 40 mg Product Wasted: ___ mg Aspirin 81 MG Notes: Take No Longer [place] Chewable Tablet with food. Active 2015 Medic al [place] gabapentin 300 MG Notes: (Same No Longer [place] Oral Capsule as: Active 2016 [facility] Neurontin) [place] Divalproex Sodium Notes: (Same No Longer [place] [...] Weight 86.364, kg, Start date: 06/11/16 9:00:00 DRUM ATTENDANT, Duration: 30 day, Stop date: 07/10/16 9:00:00 DRUM ATTENDANT Insulin Glargine Notes: Same No Longer H [...] as: Duoneb) Active 2016 Medical Ipratropium [place] 0.167 MG/ML Inhalant Solution [DuoNeb] gabapentin 300 MG 300 mg, Inactive [place] Oral Capsule Route: PO, 2016 Medical Drug form: Center CAP, Q12H, Dosing Weight 86.364, kg, (CrCl 30 - 59 ml/min), Start date: 06/10/16 21:00:00 DRUM ATTENDANT, Duration: 30 day, Stop date: 07/10/16 9:00:00 DRUM ATTENDANT divalproex sodium Notes: (Same No Longer [place] [...] Blood Glucose Results, Start date: 06/10/16 18:50:00 DRUM ATTENDANT, Duration: 30 day, Stop date: 07/10/16 18:49:00 DRUM ATTENDANT Glucagon 1 mg, Route: No Longer [place] IM, Drug Active 2015 Medical form: Center PDR/INJ, PRN, Dosing Weight 86.364, kg, PRN Blood Glucose Results, Start date: 06/10/16 18:50:00 DRUM ATTENDANT, Duration: 30 day, Stop date: 07/10/16 18:49:00 DRUM ATTENDANT Hydralazine Notes: (Same [place] Longer [place] [...] Center 86.364, kg, Start date: 06/10/16 18:06:00 DRUM ATTENDANT, Stop date: 06/10/16 18:06:00 DRUM ATTENDANT hydrOXYzine Notes: (Same [place] Long[place] pamoate as: Vistaril) Active 2015 Medical Center Furosemide 60 mg, Route: Inactive Baljinder as IVP, Drug 2015 Medical form: INJ, Center ONCE, Dosing Weight 86.364, kg, Start date: 06/10/16 16:32:00 DRUM ATTENDANT, Stop date: 06/10/16 16:32:00 DRUM ATTENDANT Lasix Notes: (Same Inactive [place] as: Lasix) 2015 Medical Center MEDICATION WASTE Product Size: 40 mg Product Wasted: _0__ mg Albuterol 0.833 Notes: (Same No Longer 06/10/ H [place] MG/ML / as: Duoneb) Active 2015 [facility] Ipratropium Center [place] 0.167 MG/ML Inhalant Solution [DuoNeb] Promethazine 25 mg = 1 Active [facility] Hydrochloride 25 supp, DE, 2015 Medic al MG Rectal Q6H, Nausea [...] Erythromycin 500 = 1 tab, PO, Active [facility] MG Enteric Coated Q6H, # 40 2015 Medi [place] Tablet tab, 0 Center Refill(s) Hydromorphone Notes: Same [place] as: Dilaudid 2014 [facility] hydrOXYzine 0 Refill(s) Active [facility] pamoate [address] [place] [address] Dicyclomine 0 Refill(s) Active [address] Ondansetron 0 Refill(s) Active [address] Benztropine 0 Refill(s) Active [address] Clonidine 0 Refill(s) Active [address] Zoloft 0 Refill(s) Active [address] Metoclopramide 0 Refill(s) [place] [address] [place] [address] Erythromycin 0 Refill(s[place] [address] [place] [address] Tramadol 0 Refill(s) Active [address] Depakote 0 Refill(s) Active [address] quetiapine 0 Refill(s) Active [address] Sodium Chloride 2,000 mL, Inactive [place] 0.154 MEQ/ML 1,000 ml/hr, 2014 Medica l Injectable Infuse Over: Center Solution 2 hr, Route: IV, 2,000, Drug form: INJ, ONCE, Priority: STAT, Dosing Weight 75 kg, Start date: 06/26/14 4:56:00, Duration: 1 doses or times, Stop date: 06/26/14 4:56:00 Lorazepam Notes: (Same Inactive [facility] as: Ativan) [address] [place] [address] Metoclopramide Notes: (Same Inactive [facility] as: Reglan) [address] [place] [address] Zofran ODT 4 mg 4 mg, 1 tab, Active [facility] oral tablet, PO, BID, PRN, 2012 [facility] disintegrating Dissolve tab under tongue, 10 tab, Nausea and Vomiting, Substitution AllowedDissol ve tab under tongue Saline Flush 0.9% 5 mL, Route: No Longer Marry IVP, Drug Active 2012 [facility] Form: INJ, Dosing Weight 63.636, kg, PRN, PRN Line Flush, Start date: 04/14/13 23:10:00, Duration: 24 hr, Stop date: 04/15/13 23:09:00(Same as: BD Posiflush) morphine Sulfate 4 mg, Route: No Longer Marry IVP, ONCE, Active 2012 [facility] Dosing Weight 63.636, kg, Priority: STAT, Start date: 04/14/13 23:10:00, Stop date: 04/14/13 23:10:00 ketorolac 30 mg, Route: No Longer Marry IVP, ONCE, 2012 [facility] Dosing Weight 63.636, kg, Priority: STAT, Start date: 04/14/13 23:10:00, Stop date: 04/14/13 23:10:00 ondansetron 4 mg, Route: No Longer Marry IVP, ONCE, 2012 [facility] Dosing Weight 63.636, kg, Priority: STAT, Start date: 04/14/13 23:10:00, Stop date: 04/14/13 23:10:00 Sodium Chloride 1,000 mL, No Longer Marry 0.9% IV 1,000 mL Rate: 125 Active 2012 [facility] ml/hr, Infuse over: 8 hr, Route: IV, Dosing Weight 63.636 kg, Total Volume: 1,000, Start date: 04/14/13 23:10:00, Duration: 30 day, Stop date: 05/14/13 23:09:00 morphine Sulfate 5 mg, Route: IVP No Longer Hernandez IVP, ONCE, 2011 [facility] Dosing Weight 58.636, kg, Priority: STAT, Start date: 03/14/12 20:15:00, Stop date: 03/14/12 20:15:00 Sodium Chloride 500 mL, Rate: IV No Longer [facility] 0.9% (Bolus) IV 500 ml/hr, 2011 [facility] 500 mL Infuse over: 1 hr, Route: IV, kg, Total Volume: 500, Bolus Dose, Priority: STAT, Start date: 03/14/12 18:45:00, Duration: 1 doses or times, Stop date: 03/14/12 19:44:00 ondansetron 4 mg, Route: IVP No Longer Hernandez IVP, ONCE, 2011 [facility] Dosing Weight 58.636, kg, Priority: STAT, Start date: 03/14/12 17:19:00, Stop date: 03/14/12 17:19:00 morphine Sulfate 5 mg, Route: IVP No Longer Hernandez IVP, ONCE, 2011 [facility] Dosing Weight 58.636, kg, Priority: STAT, Start date: 03/14/12 17:19:00, Stop date: 03/14/12 17:19:00 pantoprazole 40 mg, Route: IVP No Longer Hernandez IVP, ONCE, 2011 [facility] Dosing Weight 58.636, kg, For IV push reconstitute with 10 ml 0.9% sodium chloride and push over at least 3 minutes, Priority: STAT, Start date: 03/14/12 17:19:00, Stop date: 03/14/12 17:19:00 Sodium Chloride 500 mL, Rate: IV No Longer [place] 0.9% (Bolus) IV 1,000 ml/hr, Active 2011 [facility] 500 mL Infuse over: 0.5 hr, Route: IV, kg, Total Volume: 500, Bolus dose, Priority: STAT, Start date: 03/14/12 17:19:00, Duration: 1 doses or times, Stop date: 03/14/12 17:48:00 Reglan 10 mg oral 10 mg, 1 tab, PO Active [facility] tablet PO, 2011 Medical QID-Before Center Meals, 120 tab, 1, 1, Substitution Allowed insulin 10 unit, 0.1 SUB-Q No Longer [facility] isophane-NPH mL, Route: Active 2011 Medical SUB-Q, Drug Center form: INJ, Bedtime, Start date: 11/29/11 21:00:00, Duration: 30 day, Stop date: 12/28/11 21:00:00 Insulin regular 8 unit, 0.08 SUB-Q No Longer [facility] mL, Route: Active 2011 Medical SUB-Q, Drug Center form: SOLN, Bedtime, Start date: 11/29/11 21:00:00, Duration: 30 day, Stop date: 12/28/11 21:00:00 trazodone 100 mg 200 mg, 2 PO No Longer [facility] oral tablet tab, Route: Active 2011 Medical PO, Drug Center form: TAB, Bedtime, Start date: 11/29/11 21:00:00, Duration: 30 day, Stop date: 12/28/11 21:00:00 Geodon 120 mg, 3 PO No Longer [facility] cap, Route: Active 2011 Medical PO, Drug Center form: CAP, Bedtime, Start date: 11/29/11 21:00:00, Duration: 30 day, Stop date: 12/28/11 21:00:00 amLODipine 5 mg, 1 tab, PO No Longer [facility] [place] Route: PO, Active 2011 Medical Drug form: Center TAB, ONCE, Priority: NOW, Start date: 11/29/11 20:11:00, Stop date: 11/29/11 20:11:00 morphine Sulfate 2 mg, Route: IVP No Longer Omidvar Micki IVP, ONCE, Active 2011 Medical Start date: Center 11/29/11 16:33:00, Stop date: 11/29/11 16:33:00 morphine Sulfate 2 mg, 0.5 mL, IVP No Longer Omidvar [facility] Route: IVP, Active 2011 Medical Drug form: [place] INJ, ONCE, Start date: 11/29/11 16:32:00, Stop date: 11/29/11 16:32:00 Tylenol 650 mg, 2 PO No Longer Omidvar [facility] tab, Route: Active 2011 Medical PO, [...] 10 unit, 0.1 SUB-Q No Longer Gunnar [facility] mL, Route: Active 2011 Medical SUB-Q, Drug Center form: SOLN, Daily, Start date: 11/29/11 9:00:00, Duration: 30 day, Stop date: 12/28/11 9:00:00 Effexor XR 75 mg, 1 cap, PO No Longer [place]ar [place] Route: PO, Active 2011 Medical Drug form: [place] ERCAP, Daily, Start date: 11/29/11 9:00:00, Duration: [...] Route: PO, Active 2011 Medical Drug form: [place] TAB, Daily, Start date: 11/29/11 9:00:00, Duration: 30 day, Stop date: 12/28/11 9:00:00 insulin aspart 10 unit, 0.1 SUB-Q No Longer Gunnar 11/28[facility] [place] mL, Route: Active 2011 Medical SUB-Q, Drug Center form: SOLN, TID-Before Meals, PRN Blood Glucose Results, Start date: 11/29/11 1:30:00, Duration: 30 day, Stop date: 12/29/11 1:29:00 Dextrose 50% 25 gm, 50 mL, IVP No Longer Gunnar [facility] Syringe Route: IVP, Active 2011 Medical [...] 5 ml, Route: IVP No Longer Gunnar [facility] IVP, Drug Active 2011 Medical Form: INJ, Center PRN, PRN Line Flush, Start date: 11/29/11 1:28:00, Duration: 30 day, Stop date: 12/29/11 1:27:00 ondansetron 4 mg, 2 mL, IVP No Longer [place] Route: IVP, Active 2011 Medical Drug form: [place] INJ, Q8H, PRN Nausea & Vomiting, Start date: 11/29/11 1:28:00, Duration: 30 day, Stop date: 12/29/11 1:27:00 Reglan 10 mg, 2 mL, IVP No Longer [facility] 11/28[facility] Route: IVP, Active 2011 Medical Drug form: [place] INJ, Q6H, Priority: STAT, Start date: 11/29/11 1:28:00, Duration: 30 day, Stop date: 12/29/11 0:00:00 Protonix 40 mg, Route: IV No Longer [facility] Baljinder as IV, Drug Active 2011 Medical form: INJ, Center ONCE, Priority: STAT, Start date: 11/29/11 1:28:00, Stop date: 11/29/11 1:28:00 metoclopramide 10 mg, 2 mL, IVP No Longer [facility] 11/28[facility] Route: IVP, Active 2011 Medical Drug form: Center INJ, ONCE, Priority: STAT, Start date: 11/28/11 23:01:00, Stop date: 11/28/11 23:01:00 Zofran 4 mg, 2 mL, IVP No Longer [facility] 11/28[facility] Route: IVP, Active 2011 Medical Drug form: Center INJ, ONCE, Priority: STAT, Start date: 11/28/11 21:31:00, Stop date: 11/28/11 21:31:00 NS (Bolus) IV 1,000 mL, IV No Longer [facility] Baljinder as 1,000 mL Rate: 1,000 [...] mg, 1 mL, IVP No Longer Domenico [facility] Route: IVP, Active 2011 Medical Drug form: Center INJ, ONCE, Priority: STAT, Start date: 11/28/11 15:35:00, Stop date: 11/28/11 15:35:00 Novolin R 100 8 unit, SUB-Q Active [facility] Baljinder as units/mL SUB-Q, Q12H, 2011 Medical injectable 2 vial, Center solution Substitution Allowed, SOLN Novolin N 100 10 unit, SUB-Q Active [facility] [place] units/mL SUB-Q, 2011 Medical subcutaneous Bedtime, 10 Center injection ml, Substitution Allowed, SUSP Novolin N 100 14 unit, SUB-Q Active [facility] [place] units/mL SUB-Q, QAM, 1 2011 Medical subcutaneous vial, Center injection Substitution Allowed, SUSP magnesium oxide 400 mg, 1 PO No Longer [facility] tab, Route: Active 2011 Medical PO, Drug Center form: TAB, ONCE, Priority: STAT, Start date: 09/18/11 9:55:00, Stop date: 09/18/11 9:55:00 Insulin regular 8 unit, 0.08 SUB-Q No Longer [facility] 09/17 [facility] mL, Route: Active 2011 Medical SUB-Q, Drug Center form: SOLN, ONCE, Priority: STAT, Start date: 09/18/11 9:22:00, Stop date: 09/18/11 9:22:00 Lactated Ringers 1,000 mL, IV No Longer [facility] (Bolus) IV 1,000 Rate: 1,000 Active 2011 Med ical mL ml/hr, Infuse Center over: 1 hr, Route: IV, Total Volume: 1,000, Bolus Dose, Priority: STAT, Start date: 09/18/11 9:16:00, Duration: 1 doses or times, Stop date: 09/18/11 10:15:00 Sodium Chloride 1,000 mL, IV No Longer [facility] 0.9% (Bolus) IV Rate: 1,000 Active [...] 100 mg 100 mg, 1 PO Active [place] oral capsule cap, PO, BID, 2011 Medic al 60 cap, Center Substitution Allowed, CAP clindamycin 150 300 mg, 2 PO Active [place] mg oral capsule cap, PO, Q8H, 2011 Me dical 30 cap, Center Substitution Allowed, CAP [place] 10/325 oral 1 tab, PO, PO Active [place] tablet Q4H, PRN, 2011 Medical tab, Pain, Center Substitution Allowed, Maintenance, TAB [place] 10/325 oral 1 tab, Route: PO No [...] mg, 2 mL, IVP No Longer [place] Route: IVP, Active 2011 Medical Drug form: Center INJ, PRN, PRN Benzodiazepin e Reversal, Initial dose, Start date: 09/07/11 9:19:00, Duration: 1 day, Stop date: 09/08/11 9:18:00 naloxone 0.04 mg, 0.1 IVP No Longer [place] mL, Route: Active 2011 Medical IVP, Drug Center form: INJ, Q2MIN, PRN Narcotic Reversal, Start date: 09/07/11 9:19:00, Duration: 8 doses or times, Stop date: Limited # of times ondansetron 4 mg, 2 mL, IVP No Longer [place] Baljinder as Route: IVP, Active 2011 Medical Drug form: Center INJ, ONCE, PRN Nausea & Vomiting, Start date: 09/07/11 9:19:00 hydromorphone 0.5 mg, 0.25 IVP No Longer [place] mL, Route: Active 2011 Medical IVP, Drug Center form: INJ, Q5Min, PRN Pain Score 4-6, Start date: 09/07/11 9:19:00, Duration: 5 doses or times, Stop date: Limited # of times acetaminophen-hyd 15 mL, Route: PO No Longer [place] rocodone 325 PO, Drug Active 2011 Medical mg-10 mg/15 mL Form: SOLN, Cente r oral solution Q4H, PRN Pain Score 4-6, Start date: 09/07/11 9:19:00, Duration: 1 day, Stop date: 09/08/11 8:00:00 Lactated Ringers 1,000 mL, IV No Longer Omidvar [place] IV 1,000 mL Rate: 125 Active 2011 Medical ml/hr, Infuse Center over: 8 hr, Route: IV, Dosing Weight 68.182 kg, Total Volume: 1,000, Start date: 09/07/11 9:06:00, Duration: 30 day, Stop date: 10/07/11 9:05:00 clindamycin 600 mg, IVPB No Longer Arias [facility] Route: IVPB, Active 2011 Medical ONCE, [...] 8.6 mg, 1 PO No Longer Omidvar [facility] tablet tab, Route: Active 2011 Medical [...] 40 mEq, 2 PO No Longer Omidvar [facility] chloride tab, Route: Active 2011 Medical PO, Drug Center form: ERTAB, ONCE, Start date: 09/05/11 9:11:00, Stop date: 09/05/11 9:11:00 Dulcolax Laxative 10 mg, 2 tab, PO No Longer Wong [place] Route: PO, Active 2011 Medical Drug form: Center ECTAB, Daily, PRN Constipation, Priority: NOW, Start date: 09/04/11 23:00:00, Duration: 30 day, Stop date: 10/04/11 22:59:00 Zofran 4 mg, 2 mL, IV No Longer Peg [place] Route: IV, Active 2011 Medical Drug form: Center INJ, Q4H, PRN as needed for nausea/vomiti ng, Priority: NOW, Start date: 09/04/11 18:11:00, Duration: 30 day, Stop date: 10/04/11 18:10:00 [place] 10/325 oral 1 tab, Route: PO No Longer Dez [place] tablet PO, Drug Active 2011 Medical Form: [...] Duration: 30 day, Stop date: 10/04/11 9:49:00 [place] 10/325 oral 1 tab, Route: PO No [...] 40 mEq, 2 PO No Longer Omidvar [facility] chloride tab, Route: Active 2011 Medical PO, Drug Center form: ERTAB, ONCE, Start date: 09/03/11 8:39:00, Stop date: 09/03/11 8:39:00 [place] 5/325 oral 1 tab, Route: PO No Longer Kavon 08/19 [facility] tablet PO, Drug Active 2011 Medical [...] Route: PO, Active 2011 Medical Drug form: [place] ERCAP, Daily, Give qAM after today's dose., Start date: 09/02/11 12:00:00, Duration: 30 day, Stop date: 10/02/11 9:00:00 [place] 5/325 oral 1 tab, Route: PO No Longer Kavon 08/19 [facility] [place] tablet PO, Drug Active 2011 Medical Form: TAB, [place] Q4H, PRN Pain, Start date: 09/02/11 11:25:00, Duration: 30 day, Stop date: 10/02/11 11:24:00 magnesium sulfate 4 gm, 50 mL, IVPB No Longer Omidvar [facility] Route: IVPB, Active 2011 Medical Drug form: [place] INJ, ONCE, Start date: 09/02/11 11:15:00, Stop date: 09/02/11 11:15:00 Lovenox 40 mg, 0.4 SUB-Q No Longer Movva [facility] mL, Route: Active 2011 Medical SUB-Q, Drug Center form: INJ, Daily, Start date: 09/02/11 9:00:00, Duration: 30 day, Stop date: 10/01/11 9:00:00 vancomycin 1 gm, Route: IVPB No Longer Anabelle Baljinder as IVPB, Drug Active 2011 Medical form: INJ, [place] [id number], Start date: 09/02/11 9:00:00, Duration: 30 day, Stop date: 10/01/11 21:00:00 clindamycin 600 mg, 4 mL, IVPB No Longer [place] (SCIP) Route: IVPB, Active 2011 Medical [id number], Start Center date: 09/02/11 5:00:00, Duration: 3 doses or times, Stop date: 09/02/11 21:00:00 clindamycin 600 mg, 4 mL, IVPB No Longer [place] Micki (SCIP) Route: IVPB, Active 2011 [facility] [id number], Start Center date: 09/01/11 23:00:00, Duration: 3 doses or times, Stop date: 09/02/11 15:00:00 insulin 15 unit, 0.15 SUB-Q No Longer Omidvar [facility] isophane-NPH mL, Route: Active 2011 Medical [...] hydromorphone 0.5 mg, IVP No Longer Feliciano [facility] Route: IVP, Active 2011 Medical Q5Min, PRN Center Pain Score 4-6, Start date: 09/01/11 20:07:00, Duration: 5 doses or times, Stop date: Limited # of times naloxone 0.04 mg, IVP No Longer Feliciano [facility] Route: IVP, Active 2011 Medical Q2MIN, PRN Center Narcotic Reversal, Start date: 09/01/11 20:07:00, Duration: 8 doses or times, Stop date: Limited # of times flumazenil 0.2 mg, IVP No Longer Feliciano [facility] Route: IVP, Active 2011 Medical PRN, [...] Drug Active 2011 Medical form: INJ, Center [id number], Start date: 09/01/11 20:00:00, Duration: 30 day, Stop date: 10/01/11 8:00:00 Lactated Ringers 1,000 mL, IV No Longer Wong [facility] IV 1,000 mL Rate: 125 Active 2011 Medical ml/hr, Infuse Center over: 8 hr, Route: IV, Dosing Weight 68.2 kg, Total Volume: 1,000, Start date: 09/01/11 19:55:00, Duration: 30 day, Stop date: 10/01/11 19:54:00 vancomycin 1 gm, Route: IVPB No Longer Movva 09/01[facility] as IVPB, Drug Active 2011 Medical form: INJ, Center [id number], Start date: 09/01/11 19:00:00, Duration: 30 day, Stop date: 10/01/11 7:00:00 insulin aspart 6 unit, 0.06 SUB-Q No Longer Movva [facility] mL, Route: Active 2011 Medical SUB-Q, Drug Center form: SOLN, TID-Before Meals, PRN Blood Glucose Results, Start date: 09/01/11 18:23:00, Duration: 30 day, Stop date: 10/01/11 18:22:00 glucagon 1 mg, Route: IM No Longer Movva [facility] IM, Drug Active 2011 Medical form: [place] PDR/INJ, PRN, PRN Blood Glucose Results, Start date: 09/01/11 18:23:00, Duration: 30 day, Stop date: 10/01/11 18:22:00 Dextrose 50% 25 gm, 50 mL, IVP No Longer Movva [facility] Syringe Route: IVP, Active 2011 Medical Drug Form: [place] INJ, PRN, PRN Blood Glucose Results, Start date: 09/01/11 18:23:00, Duration: 30 day, Stop date: 10/01/11 18:22:00 morphine Sulfate 2 mg, 1 mL, IVP No Longer Beni [facility] Route: IVP, Active 2011 Medical Drug form: [place] INJ, Q4H, PRN Severe Pain, Start date: 09/01/11 16:14:00, Stop date: 10/01/11 16:13:00 Lactated Ringers 1,000 mL, IV No Longer [employer] [facility] IV 1,000 mL Rate: 100 Active 2011 Medical ml/hr, Infuse Center over: 10 hr, Route: IV, Dosing Weight 68.182 kg, Total Volume: 1,000, Start date: 09/01/11 14:03:00, Duration: 30 day, Stop date: 10/01/11 14:02:00 morphine Sulfate 4 mg, 1 mL, IVP No Longer [facility] Route: IVP, Active 2011 Medical Drug form: Center INJ, ONCE, Start date: 09/01/11 12:13:00, Stop date: 09/01/11 12:13:00 Lactated Ringers 2,000 mL, IV No Longer [facility] ([place]) IV 2,000 Rate: 100 Active 2011 Medic al mL ml/hr, Infuse Center over: 20 hr, Route: IV, Dosing Weight 68.18 kg, Total Volume: 2,000, Start date: 09/01/11 10:42:00, Duration: 1 doses or times, Stop date: 09/02/11 6:41:00 Insulin regular 8 unit, 0.08 SUB-Q No Longer [facility] mL, Route: Active 2011 Medical SUB-Q, Drug Center form: SOLN, ONCE, Priority: STAT, Start date: 09/01/11 10:28:00, Stop date: 09/01/11 10:28:00 Sodium Chloride 1,000 mL, IV No Longer [facility] [place] 0.9% (Bolus) IV Rate: 1,000 Active 2011 Medi tawnya 1,000 mL ml/hr, Infuse Center over: 1 hr, Route: IV, Dosing Weight 68.18 kg, Total Volume: 1,000, Bolus Dose, Priority: STAT, Start date: 09/01/11 9:53:00, Duration: 1 doses or times, Stop date: 09/01/11 10:52:00 morphine Sulfate 4 mg, 1 mL, IVP No Longer Sandeep [facility] Route: IVP, Active 2011 Medical [...] Sodium Chloride 1,000 mL, IV No Longer [place] 0.9% (Bolus) IV Rate: 1,000 Active 2011 Medi tawnya 1000 mL ml/hr, Infuse Center over: 1 hr, Route: IV, Dosing Weight 68.182 kg, Total Volume: 1,000, [place] Dose, Priority: STAT, Start date: 09/01/11 3:42:00, Duration: 1 doses or times, Stop date: 09/01/11 4:41:00 Insulin regular 8 unit, 0.08 IVP No Longer [place] mL, Route: Active 2011 Medical IVP, Drug Center form: SOLN, ONCE, Priority: STAT, Start date: 09/01/11 3:30:00, Stop date: 09/01/11 3:30:00 Sodium Chloride 1,000 mL, IV No Longer [place] 0.9% (Bolus) IV Rate: 1,000 Active 2011 [facility] tawnya 1,000 mL ml/hr, Infuse Center over: 1 hr, Route: IV, Dosing Weight 68.182 kg, Total Volume: 1,000, [place]us Dose, Priority: STAT, Start date: 09/01/11 2:29:00, Duration: 1 doses or times, Stop date: 09/01/11 3:28:00 potassium 40 mEq, 2 PO No Longer [facility] chloride tab, Route: Active 2011 Medical PO, Drug Center form: ERTAB, BID, Start date: 08/23/11 9:00:00, Duration: 2 doses or times, Stop date: 08/23/11 17:00:00 amLODipine 5 mg 5 mg, 1 tab, PO Active [facility] oral tablet PO, Daily, 30 2011 Medica l tab, 3, 3, Center Substitution Allowed, TAB lisinopril 20 mg 40 mg, 2 tab, PO Active [facility] [place] oral tablet PO, Daily, 60 2011 Medica l tab, 3, 3, Center Substitution Allowed, TAB Novolin N 100 18 Units, SUB-Q Active [facility] units/mL SUB-Q, BID, 3 2011 Medical subcutaneous vial, 3, 3, Center injection Substitution Allowed, SUSP insulin regular 5 Units, SUB-Q Active [facility] [place] human recombinant SUB-Q, TID, 2011 Ca dical 100 units/mL 30 vial, 3, Center injectable 3, solution Substitution Allowed, before breakfast lunch and dinner, SOLNbefore breakfast lunch and dinner potassium 20 mEq, 100 IVPB No Longer [facility] chloride mL, Route: Active 2011 Medical IVPB, Drug Center form: INJ, Q2H, Start date: 08/23/11 8:00:00, Duration: 2 doses or times, Stop date: 08/23/11 10:00:00 calcium chloride 1 gm, Route: IVPB No Longer [facility] [place] IVPB, ONCE, Active 2011 Medical Priority: [...] gm, 50 mL, IVPB No Longer Akmal [facility] Route: IVPB, Active 2011 Medical Drug form: Center INJ, ONCE, Total dose = 2 gm, Start date: 08/23/11 6:26:00, Duration: 1 doses or times, Stop date: 08/23/11 6:26:00 magnesium sulfate 2 gm, 50 mL, IVPB No Longer Ahmed [facility] Route: IVPB, Active 2011 Medical Drug form: Center INJ, ONCE, Total dose = 2 gm, Start date: 08/22/11 10:26:00, Duration: 1 doses or times, Stop date: 08/22/11 10:26:00 calcium gluconate 1,000 mg, 10 IVPB No Longer Ahmed [facility] mL, Route: Active 2011 Medical IVPB, ONCE, Center Start date: 08/22/11 10:25:00, Stop date: 08/22/11 10:25:00 potassium 40 mEq, 2 PO No Longer Akmal [facility] chloride 20 mEq tab, Route: Active 2011 Medi [place]wn[place] oral tablet, PO, Drug Center extended release form: ERTAB, Daily, Start date: 08/22/11 9:00:00, Duration: 30 day, Stop date: 08/22/11 12:00:00 magnesium sulfate 2 gm, 50 mL, IVPB No Longer Akmal [facility] Route: IVPB, Active 2011 Medical Drug [...] 6.25 mg, 0.25 IVPB No Longer Rivero [facility] mL, Route: Active 2011 Medical IVPB, [...] mg, 2 mL, IVP No Longer Ahmed [facility] Route: IVP, Active 2011 Medical Drug form: Center INJ, Q8H, PRN Nausea, Start date: 08/20/11 11:15:00, Duration: 30 day, Stop date: 09/19/11 11:14:00 insulin 10 unit, SUB-Q No Longer Rivero [facility] isophane-NPH Route: SUB-Q, Active 2011 Medic al ONCE, Start Center date: 08/20/11 10:00:00, Stop date: 08/20/11 10:00:00 trazodone 100 mg 200 mg, 2 PO [place] oral tablet tab, PO, 2011 Medical Bedtime, 90 Center tab, Substitution Allowed, TAB benztropine 1 mg 1 mg, 1 tab, PO Active [facility] oral tablet PO, BID, 60 2011 Medical tab, Center Substitution Allowed, TAB Geodon 60 mg oral 120 mg, 2 PO Active [place] capsule cap, PO, 2011 Medical Bedtime, 60 Center cap, Substitution Allowed, CAP insulin 10 unit, SUB-Q No Longer Rivero [facility] isophane-NPH Route: SUB-Q, Active 2011 Medic al Q12H, Start Center date: 08/20/11 9:00:00, Duration: 30 day, Stop date: 09/18/11 21:00:00 Geodon 60 mg, 3 cap, PO No Longer [place] Route: PO, Active 2011 Medical Drug form: Center CAP, BID, Start date: 08/20/11 9:00:00, Duration: 30 day, Stop date: 09/18/11 17:00:00 Effexor XR 75 mg, 1 cap, PO No Longer [place] [facility] Route: PO, Active 2011 Medical Drug form: Center ERCAP, Daily, Start date: 08/20/11 9:00:00, Duration: 30 day, Stop date: 09/18/11 9:00:00 potassium 15 mmol, 5 IV No Longer Rivero Baljinder as phosphate mL, Route: Active 2011 Medical IV, ONCE, Center Start date: 08/20/11 8:30:00, Stop date: 08/20/11 8:30:00 potassium 20 mEq, 100 IVPB No Longer [place] chloride mL, Route: Active 2011 [facility] IVPB, Drug Center form: INJ, Q2H, Total dose = 80 mEq, Start date: 08/20/11 8:00:00, Duration: 4 doses or times, Stop date: 08/20/11 14:00:00 potassium 15 mmol, IVPB No Longer [place] M[place] phosphate Route: IVPB, Active 2011 [facility] PRN, PRN Center Abnormal Lab Result, Start date: 08/20/11 6:47:00, Duration: 30 day, Stop date: 09/19/11 7:46:00 Insulin regular 6 unit, 0.06 SUB-Q No Longer [place]icki mL, Route: Active 2011 [facility] SUB-Q, Drug Center form: SOLN, ONCE, Start date: 08/20/11 3:38:00, Stop date: 08/20/11 3:38:00 Insulin regular 10 unit, SUB-Q No Longer [facility] [place] SUB-Q, BID, Active 2011 Medical Substitution Center Allowed insulin 10 unit, SUB-Q No Longer [place] isophane-NPH SUB-Q, BID, Active 2011 Medical Substitution Center Allowed NS 1,000 mL 1,000 mL, IV No Longer [facility] [place] Rate: 150 Active 2011 Medical ml/hr, [...] 1 mg, Route: IM No Longer [place]o 08/19/ [place] IM, Drug Active 2011 [...] regular 3 unit, SUB-Q No Longer Rivero [facility] Route: SUB-Q, Active 2011 Medical Bedtime, PRN Center Blood Glucose Results, Start date: 08/20/11 2:48:00, Duration: 30 day, Stop date: 09/19/11 2:47:00 Dextrose 50% 25 gm, 50 ml, IVP No Longer Rivero [facility] Syringe Route: IVP, Active 2011 Medical Drug Form: Center INJ, PRN, PRN Blood Glucose Results, Start date: 08/20/11 2:46:00, Duration: 30 day, Stop date: 09/19/11 3:45:00 ondansetron 4 mg, Route: IVP No Longer [facility] IVP, Drug Active 2011 Medical form: INJ, Center ONCE, Priority: STAT, Start date: 08/20/11 1:42:00, Stop date: 08/20/11 1:42:00 GI cocktail 30 ml, Route: PO No Longer [facility] PO, Drug Active 2011 Medical Form: SUSP, Center ONCE, STAT, Start date: 08/19/11 23:12:00, Stop date: 08/19/11 23:12:00 ondansetron 4 mg, Route: PO No Longer [facility] PO, Drug Active 2011 Medical form: TABDIS, Center ONCE, Priority: STAT, Start date: 08/19/11 23:10:00, Stop date: 08/19/11 23:10:00 Lactated Ringers 1,000 mL, IV No Longer [facility] ([place]) IV 1000 Rate: 1,000 Active 2011 Medi tawnya mL ml/hr, Infuse Center over: 1 hr, Route: IV, Total Volume: 1,000, [place] Dose, Priority: STAT, Start date: 08/19/11 23:10:00, Duration: 1 doses or times, Stop date: 08/20/11 0:09:00 Insulin regular 7 unit, 0.07 SUB-Q No Longer [facility] 08/19 [facility] mL, Route: Active 2011 Medical SUB-Q, Drug Center form: SOLN, ONCE, Priority: STAT, Start date: 08/19/11 22:15:00, Stop date: 08/19/11 22:15:00 Geodon 60 mg oral 60 mg, 1 cap, PO No Longer Rivero [facility] capsule PO, BID, 180 Active 2011 Medical cap, Center Substitution Allowed, CAP trazodone 300 mg 300 mg, 1 PO No Longer [place] oral tablet tab, PO, Active 2011 Medical Bedtime, 15 Center tab, Substitution Allowed, TAB Effexor XR 75 mg 75 mg, 1 cap, PO Active Rivero [facility] oral capsule, PO, Daily, 2011 [facility] extended release cap, Center Substitution Allowed Lactated Ringers 1,000 mL, IV No Longer Rivero [place] IV 1,000 mL Rate: 250 Active 2011 Medical ml/hr, Infuse Center over: 4 hr, Route: IV, Total Volume: 1,000, Priority: STAT, Start date: 08/19/11 17:03:00, Duration: 30 day, Stop date: 09/18/11 17:02:00 Sodium Chloride 100 mL, Rate: IV No Longer Rivero [facility] 0.9% (titrate) Titrate, Active 2011 Medical [...] 4 mg, Route: IVP No Longer Poo[facility] IVP, ONCE, Active 2011 Medical Priority: Center STAT, Start date: 08/19/11 15:57:00, Stop date: 08/19/11 15:57:00 Reglan 10 mg, Route: IV No Longer Pooja [facility] IV, ONCE, Active 2011 Medical Start date: Center 08/19/11 15:57:00, Stop date: 08/19/11 15:57:00 Lactated Ringers 1,000 mL, IV No Longer Pooja [facility] ([facility]) IV 1000 Rate: 1,000 Active 2011 [facility] tawnya mL ml/hr, Infuse Center over: 1 hr, Route: IV, Total Volume: 1,000, [place] Dose, Priority: STAT, Start date: 08/19/11 15:12:00, Duration: 1 doses or times, Stop date: 08/19/11 16:11:00 Allergies, Adverse Reactions, Alerts Substance Category Reaction Severity Reaction Status Date Comments S ource type Reported codeine Assertion Drug Active [facility] penicillins Assertion Drug Active [facility] Prolex DM Assertion Drug Active [facility] Ambien Assertion Drug Active [facility] lisinopril Assertion angioedema Drug Active [facility] Immunizations No Data Provided for This Section Results Order Name Results Value Reference Date Interpretation Comments Alycia rce Range ELECTROLYT AGAP 14.6 10.0 - 02/09 [facility] ES 20.0 /2017 Medical Center ELECTROLYT eGFR 33 02/09 Result [facility] Comment: The Medical eGFR is Center [...] Calcium Lvl 8.3 8.5 - 10.5 07/30 [facility] ELECTROLYT Glucose Lvl 81 70 - 99 07/30 [facility] ELECTROLYT Creatinine 1.95 0.50 - 07/30 [facility] Lvl 1.40 [facility] ELECTROLYT BUN 55 7 - 22 07/30 [facility] ELECTROLYT CO2 19 24 - 32 07/30 [facility] ELECTROLYT Chloride Lvl 110 95 - 109 07/30 [facility] ELECTROLYT Sodium Lvl 139 135 - 145 07/[address] ELECTROLYT Potassium 4.6 3.5 - 5.1 07/30 [facility] Lvl [facility] HEMATOLOGY Lymphocytes 30.4 20.0 - 07/30 [facility] 40.0 [facility] HEMATOLOGY Eosinophils 4.5 0.0 - 4.0 07/30 [facility] HEMATOLOGY Monocytes 13.7 2.0 - 12.0 07/30 [facility] [address] [place] [address] HEMATOLOGY Segs-Bands # 2.6 1.5 - 8.1 07/30 [facility] HEMATOLOGY Basophils 0.7 0.0 - 1.0 07/30 [facility] [address] [place] [address] HEMATOLOGY Monocytes # 0.7 0.0 - 0.8 07/30 [facility] HEMATOLOGY Lymphocytes 1.6 1.0 - 5.5 07/30 [facility] s # [facility] HEMATOLOGY Eosinophils 0.2 0.0 - 0.5 07/30 [facility] s # [facility] HEMATOLOGY Segs 50.7 45.0 - 07/30 [place] 75.0 [facility] HEMATOLOGY PB Smear Peripheral 07/30 [facility] blood /2016 [facility] smear Center shows hypochromi c normocytic anemia with anisopoiki locytsosis , no increase in schistocyt es, slight polychroma antonia, frequent eccinocyte s, occasional eliptocyte s, and moderate thrombocyt openia. Impression : (1) No evidence of microangio pathic hemolysis (2) RBC morphology is suggestive of anemia of chronic disease or iron deficiency anemia, and renal disease. CPT: 94265 HEMATOLOGY Hct 28.1 36.0 - 07/30 [place] 48.0 [facility] HEMATOLOGY RBC 3.39 4.20 - 07/30 [place] 5.40 /2016 [facility] HEMATOLOGY Hgb 8.9 12.0 - 07/30 [place] 16.0 /2016 [facility] HEMATOLOGY WBC 5.1 3.7 - 10.4 07/30 [facility] HEMATOLOGY MPV 11.3 7.4 - 10.4 07/30 [facility] HEMATOLOGY Platelet 118 133 - 450 07/30 [facility] HEMATOLOGY MCHC 31.8 32.0 - 02 [place] 36.0 [facility] HEMATOLOGY RDW 18.0 11.5 - 07/30 14.5 [facility] HEMATOLOGY MCV 83.0 80.0 - 07/30 98.0 [facility] HEMATOLOGY MCH 26.4 27.0 - 07/30 [place] 31.0 [facility] IMMUNOLOGY C3 137 88 - 201 07/30 [facility] IMMUNOLOGY HIV. Negative Negative 07/30 [facility] (07/30/16 5:32 AM) [place] HEMATOLOGY PB Smear Peripheral 07/29 [facility] blood [facility] smear Center shows hypochromi c normocytic anemia with anisopoiki locytsosis , no increase in schistocyt es, moderate polychroma antonia, frequent eccinocyte s, occasional eliptocyte s, and moderate thrombocyt openia. Impression : (1) No evidence of microangio pathic hemolysis (2) RBC morphology is suggestive of anemia of chronic disease or iron deficiency anemia, and renal disease. CPT: 06976 IMMUNOLOGY HIV. Negative Negative 07/29 [facility] *NA* [facility] (07/29/16 5:05 AM) [place] IMMUNOLOGY C3 92 88 - 201 07/29 [facility] CHEM PANEL eGFR 25 07/28 [facility] Comment: [facility] eGFR is Center calculated using the CKD-EPI [...] 55 7 - 22 07/28 [facility] CHEM PANEL CO2 23 24 - 32 07/28 [facility]2016 [facility] CHEM PANEL Chloride Lvl 109 95 - 109 07/28 [facility] CHEM PANEL Glucose Lvl 101 70 - 99 07/28 2016 [facility] CHEM PANEL Potassium 4.0 3.5 - 5.1 07/28 [facility] CHEM PANEL Sodium Lvl 141 135 - 145 07/28 [facility] CHEM PANEL AGAP 13.0 10.0 - 02 [place] 20.0 [facility] CHEM PANEL Calcium Lvl 7.7 8.5 - 10.5 07/28 [facility] CHEM PANEL Creatinine 2.49 0.50 - 07/28 [facility] Lvl 1.40 /2016 [facility] HEMATOLOGY PT 14.8 12.0 - 02 [place] 14.7 [facility] HEMATOLOGY PTT 40.8 22.9 - 02 [place] 35.8 /2016 [facility] HEMATOLOGY INR 1.14 0.85 - 02 [place] 1.17 [facility] IMMUNOLOGY C3 94 88 - 201 02 [facility] Complement [facility] HEMATOLOGY Lymphocytes 1.7 1.0 - 5.5 07/28 [place] # /2016 [facility] HEMATOLOGY Segs-Bands # 2.7 1.5 - 8.1 07/28 [facility] HEMATOLOGY Eosinophils 0.1 0.0 - 0.5 07/28 [place] # /2016 [facility] HEMATOLOGY Monocytes # 0.7 0.0 - 0.8 07/28 [facility] HEMATOLOGY Segs 51.3 45.0 - 02 [place] 75.0 /2016 [facility] HEMATOLOGY Lymphocytes 31.6 20.0 - 02 [place] 40.0 /2016 [facility] HEMATOLOGY Monocytes 14.1 2.0 - 12.0 07/28 [facility] HEMATOLOGY Eosinophils 2.6 0.0 - 4.0 07/28 a s /2016 [facility] HEMATOLOGY Basophils 0.4 0.0 - 1.0 07/28 [facility] HEMATOLOGY PB Smear Peripheral 07/28 [facility] Path blood /2016 Medical smear Center shows hypochromi c normocytic anemia with anisopoiki locytsosis , no increase in schistocyt es, slight polychroma antonia, a few estella cells, moderate thrombocyt openia. Impression : (1) no evidence of microangio pathic hemolysis, (2) RBC morphology is suggestive of anemia of chronic disease or iron deficiency anemia, and renal disease. CPT: 20411 HEMATOLOGY Hct 29.3 36.0 - 07/28 [place] 48.0 [facility] HEMATOLOGY Hgb 9.2 12.0 - 07/28 16.0 [facility] HEMATOLOGY RBC 3.54 4.20 - 07/28 [place] 5.40 /2016 [facility] HEMATOLOGY WBC 5.3 3.7 - 10.4 07/28 [facility] HEMATOLOGY Platelet 87 133 - 450 07/28 [facility] HEMATOLOGY MCHC 31.4 32.0 - 02 36.0 /2016 [facility] HEMATOLOGY RDW 17.9 11.5 - 07/28 14.5 [facility] HEMATOLOGY MPV 10.9 7.4 - 10.4 07/28 [facility] HEMATOLOGY MCH 26.0 27.0 - 02 31.0 [facility] HEMATOLOGY MCV 82.8 80.0 - 07/28 [facility] 98.0 [facility] IMMUNOLOGY HIV. Negative Negative 07/28 [facility] *NA* /2016 Medical (07/28/16 4:35 AM) Center CARDIAC Total CK 190 12 - 191 07/27 [facility] CHEM PANEL Calcium Lvl 7.8 8.5 - 10.5 07/27 [facility] CHEM PANEL CO2 21 24 - 32 07/27 [facility] CHEM PANEL Sodium Lvl 140 135 - 145 07/27 [facility] CHEM PANEL Potassium 3.8 3.5 - 5.1 07/27 [facility] CHEM PANEL Chloride Lvl 106 95 - 109 07/27 [facility] CHEM PANEL Bili Total 0.4 0.2 - 1.3 07/27 [facility] CHEM PANEL Alk Phos 74 39 - 136 07/27 [facility] CHEM PANEL eGFR 19 07/27 [facility] Comment: [facility] eGFR is Center calculated using the CKD-EPI [...] PANEL Total 5.2 6.4 - 8.4 07/27 [facility] CHEM PANEL ALT 822 0 - 65 07/27 [facility] CHEM PANEL AST 205 0 - 37 07/27 [facility] CHEM PANEL Albumin Lvl 1.8 3.5 - 5.0 07/27 [facility] CHEM PANEL BUN 54 7 - 22 07/27 [facility] CHEM PANEL Glucose Lvl 143 70 - 99 07/27 [facility] CHEM PANEL Creatinine 3.11 0.50 - 02 [facility] 1.40 [facility] CHEM PANEL B/C Ratio 17 6 - 25 07/27 [facility] CHEM PANEL AGAP 16.8 10.0 - 02 [place] 20.0 [facility] CHEM PANEL Globulin 3.4 2.7 - 4.2 07/[address] [place] [address] CHEM PANEL A/G Ratio 0.5 0.7 - 1.6 02/ [facility] CHEM PANEL Magnesium 2.0 1.8 - 2.4 02 [facility] Lvl [facility] CHEM PANEL Phosphorus 3.7 2.5 - 4.[address] [place] [address] HEMATOLOGY RDW 17.7 11.5 - 02 [place] 14.5 /2016 [facility] HEMATOLOGY MCHC 32.9 32.0 - 02/ [place] 36.0 [facility] HEMATOLOGY Hct 25.4 36.0 - 02/ [place] 48.0 [facility] HEMATOLOGY MCH 26.4 27.0 - 02 [place] 31.0 [facility] HEMATOLOGY MCV 80.3 80.0 - 02 [place] 98.0 [facility] HEMATOLOGY MPV 11.4 7.4 - 10.4 02 [facility] [address] [place] [address] HEMATOLOGY Platelet 74 133 - 450 02 [facility] HEMATOLOGY RBC 3.16 4.20 - 02 [place] 5.40 /2016 [facility] HEMATOLOGY WBC 5.3 3.7 - 10.4 02 [facility] HEMATOLOGY Hgb 8.4 12.0 - 02 [place] 16.0 [facility] HEMATOLOGY Monocytes 14.5 2.0 - 12.[address] [place] [address] HEMATOLOGY Lymphocytes 29.8 20.0 - 02 [place] 40.0 [facility] HEMATOLOGY Eosinophils 0.1 0.0 - 0.5 [place] # [facility] HEMATOLOGY Monocytes # 0.8 0.0 - 0.8 02 [place] [facility] HEMATOLOGY Segs-Bands # 2.9 1.5 - 8.1 02 as [facility] HEMATOLOGY Lymphocytes 1.6 1.0 - 5.5 02 [place] # /2016 [facility] HEMATOLOGY Basophils 0.4 0.0 - 1.0 02 [facility] [address] [place] [address] HEMATOLOGY Eosinophils 1.2 0.0 - 4.0 02/ [place] [facility] HEMATOLOGY Segs 54.1 45.0 - 02/ [place] 75.0 [facility] SPECIAL Hgb A1C 8.9 <=5.6 % 07/27 [facility] CHEMISTRY [facility] CARDIAC Total CK 344 12 - 191 07/26 [facility] ENZYMES [facility] IMMUNOLOGY IVETTE Positive Negative 07/26 *ABN* Medical (07/26/16 11:40 AM) Center IMMUNOLOGY STAFF [employer] OFFICER Ab <0.2 <=0.9 AI 07/26 [facility] IMMUNOLOGY Sm Ab <0.2 <=0.9 AI 07/26 [facility] IMMUNOLOGY IVETTE Interp Pattern 07/26 appears [facility] IMMUNOLOGY SS-B ([place]) Ab <0.2 <=0.9 [place] 07/[place] [facility] IMMUNOLOGY SS-A (Ro) Ab <0.2 <=0.9 AI 07/26 [facility] s [facility] IMMUNOLOGY DNA Ab (DS) Negative Negative [facility] 11[facility]40 [facility] Medica l Center IMMUNOLOGY IVETTE Titer 1:40 Negative 07/26 *ABN* Medical (07/26/16 11:40 AM) Center URINE CHEM U Sodium 21 07/26 [facility] HEMATOLOGY INR 1.11 0.85 - 07/26 [place] 1.17 [facility] HEMATOLOGY PT 14.5 12.0 - 07/26 [facility] 14.7 [facility] IMMUNOLOGY Hep A IgM Negative Negative 07/26 [place] *NA* [facility] (07/26/16 8:00 AM) Center IMMUNOLOGY Hep B Core Negative Negative 07/26 [facility] IgM *NA* Medical (07/26/16 8:00 AM) Center IMMUNOLOGY Hep C Ab Negative 07/26 [place] *NA* [facility] (07/26/16 8:00 AM) Center IMMUNOLOGY Hep Bs Ag Negative Negative 07/26 *NA* [facility] (07/26/16 8:00 AM) Center CHEM PANEL B/C Ratio 17 6 - 25 07/26 [facility] CHEM PANEL ALT 1232 0 - 65 07/26 [facility] CHEM PANEL A/G Ratio 0.5 0.7 - 1.6 07/26 [facility] CHEM PANEL Bili Total 0.3 0.2 - 1.3 07/26 [facility] CHEM PANEL Alk Phos 79 39 - 136 07/[address] CHEM PANEL AST 586 0 - 37 07/26 [facility]2016 [facility] CHEM PANEL Total 5.5 6.4 - 8.4 07/26 [facility] Protein [facility] CHEM PANEL Globulin 3.7 2.7 - 4.2 07/[address] CHEM PANEL Albumin Lvl 1.8 3.5 - 5.0 07/26 [place] [facility] CHEM PANEL Magnesium 2.1 1.8 - 2.4 07/26 [facility] HEMATOLOGY Acanthocyte Slight 07/[address] HEMATOLOGY Rouleaux Present None Seen 07/26 [facility]* [facility] (07/26/16 4:42 AM) [place] HEMATOLOGY Anisocyte 1+ None Seen 07/26 [facility]* [facility] (07/26/16 4:42 AM) [place] HEMATOLOGY Basophils # 0.1 0.0 - 0.2 07/26 [facility] s [facility] HEMATOLOGY Large Plt Moderate None Seen 07/26 [facility] (07/26/16 4:42 AM) [place] IMMUNOLOGY C4 42 16 - 47 07/26 [facility] URINE AND UA Sq Epi None Seen 07/[address] URINE AND UA Waxy Cast 1 <=0 /LPF 07/[address] URINE AND UA Hyal Cast 4 0 - 2 07/[address] URINE AND UA Bacteria Occasional None [place]en 07[place] /HPF /HPF /2016 [facility] URINE AND UA Mucus Few /LPF None Seen 07/25 [place] STOOL /LPF /[address] [place] [address] URINE AND UA Amorph Occasional None Seen 07/[place] /HPF /HPF /[address] [place] [address] URINE AND UA Leuk Est Negative Negative 07/25 [facility] STOOL (07/25/16 10:34 AM) [facility] [place] URINE AND UA Nitrite Negative Negative 07/25 [facility] (07/25/16 10:34 AM) /2016 [facility] URINE AND UA RBC 2 0 - 2 07/25 [facility] /[address] [place] [address] URINE AND UA WBC 6 0 - 5 07/[address] URINE AND UA 2.0 0.1 - 1.0 07/25 [facility] Urobilinogen /2016 [facility] URINE AND UA Ketones Negative Negative 07/25 [facility] STOOL mg/dL mg/dL [facility] URINE AND UA Glucose 70 mg/dL Negative 07/25 [facility] mg/dL [facility] URINE AND UA Blood Negative Negative 07/25 [facility] (07/25/16 10:34 AM) /2016 [facility] URINE AND UA Bili Negative Negative 07/25 [facility] STOOL *NA* [facility] (07/25/16 10:34 AM) [place] URINE AND UA Protein >=300 Negative 07/25 [facility] mg/dL mg/dL [facility] URINE AND UA Spec Grav 1.012 <=1.030 07/25 [facility] URINE AND UA pH 5.5 5.0 - 8.0 07/25 [facility] URINE AND UA Turbidity Slight Clear 07/25 [facility] *ABN* [facility] (07/25/16 10:34 AM) [place] URINE AND UA Color Dark Yellow Yellow 07/25 [facility] *NA* /2016 [facility] (07/25/16 10:34 AM) [place] URINE AND UA Gran Cast 9 07/25 [facility] URINE CHEM U Sodium 30 07/25 [facility] [address] [place] [address] URINE CHEM U Prot/Creat 3.1 07/25 [facility] [address] [place] [address] URINE CHEM U Protein 420.9 07/25 [facility] [address] [place] [address] URINE CHEM U Creatinine 136.00 07/25 [facility] [address] [place] [address] CHEM PANEL Magnesium 2.0 1.8 - 2.4 07/25 [place] Lvl [facility] CHEM PANEL Phosphorus 5.2 2.5 - 4.5 07/[address] [place] [address] CARDIAC Troponin-I 0.28 0.00 - 07/24 [facility] ENZYMES 0.40 /2016 [facility] CARDIAC Total CK 2616 12 - 191 07/24 [facility] ENZYMES /2016 [facility] CARDIAC Troponin-T 0.144 0.000 - 07/24 Result [facility] ENZYMES 0.100 /2016 Comment: Medical Critical Center Result(s) called to Jennifer Reardon at 07/24/2016 13:00 byMIA. Read back OK. CARDIAC CK MB Index 0.2 0.0 - 2.5 07/24 [facility] [place] ENZYMES /2016 [facility] CARDIAC CK MB 6.3 0.5 - 3.6 07/24 [place] ENZYMES /2016 Medical [place] CARDIAC Troponin-I 0.38 0.00 - 07/24 [place] ENZYMES 0.40 /2017 [facility] CARDIAC Troponin-T 0.173 0.000 - 07/24 Result [place] ENZYMES 0.100 /2016 Comment: Medical Critical Center Result(s) called to Nora Salcedo at 07/24/2016 07:48 byMIA. Read back OK. CARDIAC CK MB Index 0.2 0.0 - 2.5 07/24 [place] ENZYMES /2017 [facility] CARDIAC CK MB 5.6 0.5 - 3.6 07/24 [place] ENZYMES [facility] Center CHEM PANEL Phosphorus 5.5 2.5 - 4.5 07/24 [facility] CARDIAC BNP 701 <=100 07/24 [place] ENZYMES pg/mL /2016 [facility] CARDIAC Troponin-I 0.57 0.00 - 07/24 Result [place] ENZYMES 0.40 Comment: Medical Critical Center Result(s) called to Chriss Morales at 07/23/2016 23:25 by AC. Read back OK. CARDIAC BNP 526 <=100 06/15 [place] ENZYMES pg/mL [facility] CHEM PANEL Magnesium 2.1 1.8 - 2.4 06/15 Lv [facility] CHEM PANEL Glucose Lvl 117 70 - 99 06/15 [facility] CHEM PANEL BUN 41 7 - 22 06/15 [facility] CHEM PANEL Creatinine 2.00 0.50 - 06/15 [place] Lvl 1.40 [facility] CHEM PANEL Calcium Lvl 9.0 8.5 - 10.5 06/15 Bal[place] as [facility] CHEM PANEL Chloride Lvl 102 95 - 109 06/15 [place] [facility] CHEM PANEL CO2 33 24 - 32 06/15 [facility] CHEM PANEL Sodium Lvl 144 135 - 145 06/15 [facility] CHEM PANEL Potassium 4.0 3.5 - 5.1 06/15 [place] Lvl [facility] CHEM PANEL eGFR 32 06/15 Result [...] AGAP 13.0 10.0 - 06/15 [place] 20.0 [facility] CHEM PANEL Phosphorus 4.6 2.5 - 4.5 06/15 [facility] HEMATOLOGY RBC 3.68 4.20 - 06/15 [place] 5.40 [facility] HEMATOLOGY Hgb 9.9 12.0 - 06/15 [place] 16.0 [facility] HEMATOLOGY MCH 26.8 27.0 - 06/15 [place] 31.0 [facility] HEMATOLOGY MCHC 34.2 32.0 - 06/15 [place] 36.0 [facility] HEMATOLOGY MCV 78.3 80.0 - 06/15 [place] 98.0 [facility] HEMATOLOGY Hct 28.8 36.0 - 06/15 [place] 48.0 [facility] HEMATOLOGY Platelet 191 133 - 450 06/15 [facility] HEMATOLOGY MPV 9.5 7.4 - 10.4 06/15 [facility] HEMATOLOGY RDW 15.3 11.5 - 06/15 [place] 14.5 [facility] HEMATOLOGY WBC 5.6 3.7 - 10.4 06/15 [facility] HEMATOLOGY Eosinophils 0.5 0.0 - 0.5 06/15 [place] # /2015 [facility] HEMATOLOGY Microcyte 1+ None Seen 06/15 [facility] *ABN* /2015 Medical (06/15/16 4:22 AM) Cente r HEMATOLOGY Basophils # 0.1 0.0 - 0.2 06/[place] /2015 [facility] HEMATOLOGY Lymphocytes 33.5 20.0 - 06/15 [place] 40.0 [facility] HEMATOLOGY Segs 47.6 45.0 - 06/15 [place] 75.0 [facility] HEMATOLOGY Monocytes 8.4 2.0 - 12.0 06/15 [facility] HEMATOLOGY Eosinophils 9.4 0.0 - 4.0 06/15 [facility] HEMATOLOGY Segs-Bands # 2.6 1.5 - 8.1 06/15 [facility] HEMATOLOGY Lymphocytes 1.9 1.0 - 5.5 06/15 a s [facility] HEMATOLOGY Basophils 1.1 0.0 - 1.0 06/15 [facility] HEMATOLOGY Monocytes # 0.5 0.0 - 0.8 06/15 [facility] CHEM PANEL Phosphorus 4.8 2.5 - 4.5 06/14 [facility] CHEM PANEL Magnesium 2.0 1.8 - 2.4 06/14 [facility] CHEM PANEL eGFR 32 06/14 [facility] Comment: The Medical eGFR is Center [...] Chloride Lvl 101 95 - 109 06/14 [facility] CHEM PANEL Potassium 4.4 3.5 - 5.1 06/14 [facility] CHEM PANEL BUN 37 7 - 22 06/14 [facility] CHEM PANEL Glucose Lvl 119 70 - 99 06/14 [facility] CHEM PANEL Creatinine 2.00 0.50 - 06/14 [place] Lvl 1.40 [facility] CHEM PANEL Sodium Lvl 142 135 - 145 06/14 [facility] CHEM PANEL Calcium Lvl 8.7 8.5 - 10.5 06/14 [facility] CHEM PANEL CO2 32 24 - 32 06/14 [facility] CHEM PANEL AGAP 13.4 10.0 - 06/14 [place] 20.0 [facility] HEMATOLOGY Eosinophils 10.3 0.0 - 4.0 06/14 [place] [facility] HEMATOLOGY Basophils # 0.1 0.0 - 0.2 06/14 a [facility] HEMATOLOGY Eosinophils 0.5 0.0 - 0.5 06/14 [place] # [facility] HEMATOLOGY Monocytes # 0.5 0.0 - 0.8 06/14 a [facility] HEMATOLOGY Segs-Bands # 2.1 1.5 - 8.1 06/14 [facility] HEMATOLOGY Basophils 1.2 0.0 - 1.0 06/14 [facility] HEMATOLOGY Lymphocytes 1.9 1.0 - 5.5 06/14 [place] # [facility] HEMATOLOGY Segs 42.5 45.0 - 06/14 [place] 75.0 [facility] HEMATOLOGY Lymphocytes 37.0 20.0 - 06/14 [place] 40.0 [facility] HEMATOLOGY Monocytes 9.0 2.0 - 12.0 06/14 [facility] HEMATOLOGY MPV 9.8 7.4 - 10.4 06/14 [facility] HEMATOLOGY WBC 5.0 3.7 - 10.4 06/14 [facility] HEMATOLOGY RBC 3.57 4.20 - 06/14 [place] 5.40 [facility] HEMATOLOGY Hgb 9.4 12.0 - 06/14 [place] 16.0 [facility] HEMATOLOGY Hct 28.5 36.0 - 06/14 [place] 48.0 [facility] HEMATOLOGY Platelet 183 133 - 450 06/14 [facility] HEMATOLOGY MCV 79.9 80.0 - 06/14 [place] 98.0 Medical [place] HEMATOLOGY MCH 26.3 27.0 - 06/14 [place] 31.0 /2016 [facility] HEMATOLOGY MCHC 33.0 32.0 - 06/14 [place] 36.0 /2016 [facility] HEMATOLOGY RDW 15.9 11.5 - 06/14 [place] 14.5 [facility] URINE CHEM U Prot/Creat 6.9 06/13 /2015 [facility] URINE CHEM U Creatinine 19.30 06/13 /2015 [facility] URINE CHEM U Protein 133.1 06/13 /2015 [facility] HEMATOLOGY MPV 9.7 7.4 - 10.4 06/13 /2015 [facility] HEMATOLOGY Platelet 184 133 - 450 06/13 /2015 [facility] HEMATOLOGY RDW 15.9 11.5 - 06/13 [place] 14. [facility] HEMATOLOGY MCV 79.3 80.0 - 06/13 [place] 98.0 /2015 [facility] HEMATOLOGY MCHC 33.0 32.0 - 06/13 [place] 36.0 /2015 [facility] HEMATOLOGY MCH 26.2 27.0 - 06/13 [place] 31.0 /2016 [facility] HEMATOLOGY Hct 29.4 36.0 - 06/13 [place] 48.0 /2016 [facility] HEMATOLOGY Hgb 9.7 12.0 - 06/13 [place] 16.0 /2016 [facility] HEMATOLOGY RBC 3.70 4.20 - 06/13 [place] 5.40 /2016 [facility] HEMATOLOGY WBC 5.7 3.7 - 10.4 06/13 [facility] HEMATOLOGY Basophils # 0.1 0.0 - 0.2 06/13 [place] /2015 [facility] HEMATOLOGY Lymphocytes 2.2 1.0 - 5.5 06/13 [place] # /2016 [facility] HEMATOLOGY Eosinophils 0.5 0.0 - 0.5 06/13 [place] # /2015 [facility] HEMATOLOGY Monocytes # 0.5 0.0 - 0.8 06/13 [place] /2015 [facility] HEMATOLOGY Basophils 1.1 0.0 - 1.0 06/13 [facility] HEMATOLOGY Segs-Bands # 2.3 1.5 - 8.1 06/13 Baljinder as /2015 [facility] HEMATOLOGY Eosinophils 9.5 0.0 - 4.0 06/13 [place] /2016 [facility] HEMATOLOGY Monocytes 9.0 2.0 - 12.0 06/13 [facility] HEMATOLOGY Lymphocytes 38.9 20.0 - 06/13 [place] 40.0 /2015 [facility] HEMATOLOGY Segs 41.5 45.0 - 12 [facility] 75.0 [facility] CHEM PANEL Magnesium 1.7 1.8 - 2.4 06/13 [facility] CHEM PANEL Phosphorus 4.2 2.5 - 4.5 06/13 [facility] ELECTROLYT AGAP 14.3 10.0 - 06/13 [facility] ES 20.0 [facility] ELECTROLYT eGFR 41 06/13 Result [facility] Comment: [facility] eGFR is Center calculated using the CKD-EPI [...] 103 95 - 109 06/13 [place] [facility] ELECTROLYT Calcium Lvl 8.5 8.5 - 10.5 06/13 Baljinder as [facility] ELECTROLYT CO2 32 24 - 32 06/13 [facility] ELECTROLYT Glucose Lvl 173 70 - 99 06/13 [facility] ELECTROLYT BUN 37 7 - 22 06/13 [facility] ELECTROLYT Creatinine 1.63 0.50 - 06/13 [facility] Lvl 1.40 [facility] ELECTROLYT Potassium 4.3 3.5 - 5.1 06/13 [facility] Lvl [facility] ELECTROLYT Sodium Lvl 145 135 - 145 06/13 [facility] CHEM PANEL Ammonia 48.0 <=45.0 06/11 [facility] uMol/L [facility] IMMUNOLOGY IVETTE Interp Pattern 06/11 [place] [facility] [place] IMMUNOLOGY IVETTE Titer 1:40 Negative 06/11 [place] [...] r IMMUNOLOGY HIV Ag/Ab Negative Negative 06/11 [facility] 4th Gen *NA* Medical (06/11/16 8:56 AM) Cente r IMMUNOLOGY IVETTE Positive Negative 06/11 [place] *ABN* Medical (06/11/16 8:56 AM) Cente r CHEM PANEL Bili Total 0.1 0.2 - 1.3 06/11 [facility] CHEM PANEL Total 5.2 6.4 - 8.4 06/11 [facility] CHEM PANEL Albumin Lvl 1.6 3.5 - 5.0 06[place]11 [place] [facility] CHEM PANEL B/C Ratio 20 6 - 25 06/11 [facility] CHEM PANEL Globulin 3.6 2.7 - 4.2 06/11 [facility] CHEM PANEL A/G Ratio 0.4 0.7 - 1.6 06/11 [facility] CHEM PANEL Alk Phos 74 39 - 136 06/11 [facility] CHEM PANEL ALT 14 0 - 65 06/11 [facility] CHEM PANEL AST 13 0 - 37 06/11 [facility] HEMATOLOGY INR 1.06 0.85 - 06/11 [place] 1.17 /2015 [facility] HEMATOLOGY PT 14.0 12.0 - 06/11 [place] 14.7 /2016 [facility] HEMATOLOGY PTT 36.4 22.9 - 06/11 [place] 35.8 /2016 [facility] SPECIAL Hgb A1C 10.5 <=5.6 % 06/11 [place] CHEMISTRY /2015 [facility] CARDIAC CK MB Index 1.8 0.0 - 2.5 06/11 [place] ENZYMES /2015 [facility] CARDIAC CK MB 2.9 0.5 - 3.6 06/11 [place] ENZYMES [facility] CARDIAC Troponin-T 0.061 0.000 - 06/11 [place] ENZYMES 0.100 /2015 [facility] CARDIAC Total CK 159 12 - 191 06/11 [facility] ENZYMES [facility] CARDIAC Troponin-I <0.02 0.00 - 06/11 [place] ENZYMES 0.40 [facility] CHEM PANEL Bili Total 0.2 0.2 - 1.3 06/11 [facility] CHEM PANEL Bili Direct 0.1 0.0 - 0.3 06/11 [place] [facility] CHEM PANEL Bili 0.1 0.0 - 1.0 06/11 Indirect [facility] CHEM PANEL Total 5.7 6.4 - 8.4 06/11 Protein [facility] CHEM PANEL A/G Ratio 0.5 0.7 - 1.6 06/11 [facility] CHEM PANEL Albumin Lvl 1.8 3.5 - 5.0 06/11 [place] [facility] CHEM PANEL Globulin 3.9 2.7 - 4.2 06/11 [facility] CHEM PANEL Alk Phos 99 39 - 136 06/11 [facility] CHEM PANEL AST 21 0 - 37 06/11 [facility] CHEM PANEL ALT 17 0 - 65 06/11 [facility] DRUG UDS Note See Note 06/11 [...] r DRUG U Benzodia Negative Negative 06/11 [facility] SCREEN Scr *NA* Medical (06/10/16 8:08 PM) Cente r DRUG U Cocaine Negative Negative 06/11 [facility] SCREEN Scr *NA* Medical (06/10/16 8:08 PM) Cente r LIPIDS LDL 75 <=99 mg/dL 06/11 [facility] (Calculated) [facility] LIPIDS VLDL 27 06/11 [facility] LIPIDS Chol 133 <=199 06/11 [facility] mg/dL [facility] LIPIDS Trig 133 <=149 06/11 [facility] mg/dL /2015 [facility] LIPIDS CHD Risk 4.29 3.90 - 06/11 [facility] 5.80 [facility] LIPIDS HDL 31 >=61 mg/dL 06/11 [facility] URINE AND UA <=1.0 0.1 - 1.0 06/11 [facility] STOOL Urobilinogen mg/dL /2015 [facility] URINE AND UA Ketones Negative Negative 06/11 [facility] STOOL mg/dL mg/dL /2015 [facility] URINE AND UA Glucose 300 mg/dL Negative 06/11 [facility] STOOL mg/dL /2015 [facility] URINE AND UA Protein >=300 Negative 06/11 [facility] STOOL mg/dL mg/dL /2015 [facility] URINE AND UA pH 6.0 5.0 - 8.0 06/11 [facility] STOOL /2015 Medical [place] URINE AND UA Nitrite Negative Negative 06/11 [facility] STOOL (06/10/16 8:08 PM) /2016 [facility] URINE AND UA Blood Trace Negative 06/11 [facility] STOOL *ABN* Medical (06/10/16 8:08 PM) Cente r URINE AND UA Bili Negative Negative 06/11 [facility] STOOL *NA* Medical (06/10/16 8:08 PM) Cente r URINE AND UA Mucus Few /LPF None Seen 06/11 [facility] STOOL /LPF /2015 [facility] URINE AND UA RBC 4 0 - 2 06/11 [facility] URINE AND UA Sq Epi Few /LPF Few /LPF 06/11 [place] [facility] URINE AND UA WBC 5 0 - 5 06/11 [place] [facility] URINE AND UA Leuk Est Small Negative 06/11 [facility] STOOL *ABN* /2015 [facility] (06/10/16 8:08 PM) Cente r URINE AND UA Hyal Cast 1 0 - 2 06/11 [place] [facility] URINE AND UA Spec Grav 1.009 <=1.030 06/11 [facility] URINE AND UA Color Yellow Yellow 06/11 [place] [facility] *NA* /2015 [facility] (06/10/16 8:08 PM) Cente r URINE AND UA Turbidity Clear Clear 06/11 [place] [facility] (06/10/16 8:08 PM) [facility] URINE CHEM U Preg Negative Negative 06/11 [facility] (06/10/16 8:08 PM) [facility] URINE CHEM U Protein 375.4 06/11 [facility] URINE CHEM U Prot/Creat 5.4 06/11 [facility] URINE CHEM U Creatinine 69.80 06/11 [facility] CARDIAC BNP 1135 <=100 06/10 [facility] ENZYMES pg/mL [facility] CARDIAC Troponin-I <0.02 0.00 - 06/10 [facility] ENZYMES 0.40 [facility] CHEM PANEL Lactic Acid 0.9 0.5 - 2.2 06/26 [place] [facility] TOXICOLOGY Valproic 10 50 - 100 06/26 [facility] Acid Lvl [facility] ENDOCRINOL hCG Tot 1 06/26 <sup>3</sup>I [place] [...] Albumin Lvl 3.2 3.5 - 5.0 06/[address] CHEM PANEL Total 6.6 6.4 - 8.4 06/[address] CHEM PANEL Bili Total 0.6 0.2 - 1.3 06/[address] CHEM PANEL Alk Phos 59 39 - 136 06/[address] CHEM PANEL AST 11 0 - 37 06/[address] CHEM PANEL ALT 17 0 - 65 06/[address] CHEM PANEL eGFR 99 06/26 <sup>1</sup>R [facility] Comment: The [place] eGFR is calculated using the CKD-EPI formula. [...] values reflect the clinical guidelines
of the [place] [employer]. CHEM PANEL Potassium 3.4 3.5 - 5.1 06/26 [facility] CHEM PANEL BUN 11 7 - 22 06/26 [facility] CHEM PANEL Creatinine 0.8 0.5 - 1.4 06/26 [facility] CHEM PANEL Sodium Lvl 134 135 - 145 06/[address] CHEM PANEL Chloride Lvl 94 95 - 109 06/26 [facility] CHEM PANEL Calcium Lvl 9.1 8.5 - 10.5 06/26 [facility] CHEM PANEL CO2 24 24 - 32 06/[address] CHEM PANEL A/G Ratio 0.9 0.7 - 1.6 06/26 [facility] CHEM PANEL Globulin 3.4 2.0 - 4.0 06/[address] CHEM PANEL B/C Ratio 14 6 - 25 06/[address] CHEM PANEL AGAP 19.4 10.0 - 06/26 [facility] 20.0 [facility] CHEM PANEL Lipase Lvl 81 73 - 393 06/26 [facility] HEMATOLOGY Large Plt Slight 06/26 [facility] HEMATOLOGY Basophils # 0.0 0.0 - 0.2 06/26 [facility] HEMATOLOGY Anisocyte 1+ None Seen 06/26 [facility] *ABN* [facility] (06/26/14 5:21 AM) [place] HEMATOLOGY Monocytes # 0.6 0.0 - 0.8 06/26 [facility] HEMATOLOGY Eosinophils 0.1 0.0 - 0.5 06/26 [facility] s # [facility] HEMATOLOGY Lymphocytes 2.5 1.0 - 5.5 06/26 [place] # /2014 [facility] HEMATOLOGY Segs 63.3 45.0 - 06/26 [place] 75.0 /2014 [facility] HEMATOLOGY Segs-Bands # 5.6 1.5 - 8.1 06/26 Balj[place] as /2014 [facility] HEMATOLOGY Basophils 0.0 0.0 - 1.0 06/26 [facility] HEMATOLOGY Eosinophils 0.9 0.0 - 4.0 06/26 s /2014 [facility] HEMATOLOGY Monocytes 7.0 2.0 - 12.0 06/26 [facility] HEMATOLOGY Lymphocytes 28.8 20.0 - 06/26 [place] 40.0 /2014 [facility] HEMATOLOGY WBC 8.8 3.7 - 10.4 06/26 [facility] HEMATOLOGY RBC 5.19 4.20 - 06/26 5.40 /2014 [facility] HEMATOLOGY Hgb 14.4 12.0 - 06/26 16.0 /2014 [facility] HEMATOLOGY Hct 43.1 36.0 - 06/26 48.0 /2014 [facility] HEMATOLOGY MCV 83.1 80.0 - 06/26 98.0 /2014 [facility] HEMATOLOGY MCH 27.8 27.0 - 06/26 31.0 /2014 [facility] HEMATOLOGY RDW 13.1 11.5 - 06/26 14.5 /2014 [facility] HEMATOLOGY MCHC 33.5 32.0 - 06/26 36.0 /2014 [facility] HEMATOLOGY Platelet 201 133 - 450 06/26 [facility] HEMATOLOGY MPV 10.4 7.4 - 10.4 06/26 [facility] URINALYSIS UA [place] Yeast Occasional None Seen 04/15 ABN /HPF [facility] URINALYSIS UA Mucus Few /LPF None Seen 04/15 Normal [facility] URINALYSIS UA Sq Epi Moderate Few 04/15 ABN /LPF /2012 [facility] URINALYSIS Micro? Performed 04/15 Normal (04/14/2013 23:48:55) /2012 [facility] URINALYSIS UA WBC 0-2 /HPF None Seen 04/15 Normal [facility] URINALYSIS UA Bacteria Occasional None Seen 04/15 Normal /HPF [facility] URINALYSIS UA Glucose 500 mg/dL Negative 04/15 ABN [facility] URINALYSIS UA Bili Negative Negative 04/15 MH *NA* [facility] (04/14/2013 23:48:55) URINALYSIS UA Ketones Trace Negative 04/15 ABN *ABN* [facility] (04/14/2013 23:48:55) URINALYSIS UA Blood Negative Negative 04/15 Normal (04/14/2013 23:48:55) [facility] URINALYSIS UA 0.2 0.1 - 1.0 04/15 Normal Urobilinogen [facility] URINALYSIS UA Nitrite Negative Negative 04/15 Normal (04/14/2013 23:48:55) [facility] URINALYSIS UA Leuk Est Negative Negative 04/15 Normal (04/14/2013 23:48:55) [facility] URINALYSIS UA Turbidity Clear Clear 04/15 Normal (04/14/2013 23:48:55) [facility] URINALYSIS UA Color Yellow Yellow 04/15 *NA* [facility] (04/14/2013 23:48:55) URINALYSIS UA pH 7.0 5.0 - 8.0 04/15 Normal [facility] URINALYSIS UA Spec Grav 1.025 <=1.030 04/15 Normal [facility] URINALYSIS UA Protein Trace Negative 04/15 ABN *ABN* [facility] (04/14/2013 23:48:55) CHEMISTRY S Preg Negative Negative 04/15 *NA* [facility] (04/14/2013 23:28:00) CHEMISTRY Lipase Lvl 233 73 - 393 04/15 Normal [facility] CHEMISTRY Globulin 4.1 2.0 - 4.0 04/15 HI [facility] CHEMISTRY AGAP 10.5 10.0 - 04/15 Normal 20.0 [facility] CHEMISTRY B/C Ratio 6 6 - 25 04/15 Normal [facility] CHEMISTRY A/G Ratio 0.7 0.7 - 1.6 04/15 Normal [facility] CHEMISTRY eGFR 130 04/15 <sup>1</sup>R esult [facility] Comment: The eGFR is calculated using the [...] Lvl 2.9 3.5 - 5.0 04/15 LOW [facility] CHEMISTRY ASPARTATE 20 0 - 37 04/15 Normal TRANSAMINASE [facility] CHEMISTRY Bili Total 0.5 0.2 - 1.3 04/15 Normal [facility] CHEMISTRY Alk Phos 89 39 - 136 04/15 Normal [facility] CHEMISTRY ALANINE 11 0 - 65 04/15 AMINOTRANS [facility] RAS CHEMISTRY Creatinine 0.5 0.5 - 1.4 04/15 Normal [facility] CHEMISTRY BUN 3 7 - 22 04/15 LOW [facility] CHEMISTRY Glucose Lvl 255 70 - 99 04/15 HI <sup>2</sup>I nterpretive [facility] Data: Adult reference range values reflect the clinical guidelines
of the [place] [employer]. CHEMISTRY Total 7.0 6.4 - 8.4 04/15 Normal Protein [facility] CHEMISTRY Calcium Lvl 8.7 8.5 - 10.5 04/15 Normal [facility] CHEMISTRY CO2 29 24 - 32 04/15 Normal [facility] CHEMISTRY Chloride Lvl 104 95 - 109 04/15 Normal [facility] CHEMISTRY Potassium 3.5 3.5 - 5.1 04/15 Normal l [facility] CHEMISTRY Sodium Lvl 140 135 - 145 04/15 Normal [facility] HEMATOLOGY PROTIME 12.1 12.0 - 04/15 Normal 14.7 [facility] HEMATOLOGY aPTT 39.0 22.9 - 04/15 HI <sup>4</sup>I 35.8 nterpretive [facility] Data: Heparin Therapeutic Range: 57 - 92 Seconds HEMATOLOGY INR 0.90 0.85 - 04/15 Normal <sup>3</sup>I MH 1.17 nterpretive [facility] Data: RECOMMENDED RANGES FOR PROTIME INR:
2.0-3.0 for most medical and surgical thromboemboli c states.
2.5-3.5 for artificial heart valves and recurrent embolism.<br/ >
INR SHOULD BE USED ONLY FOR PATIENTS ON STABLE ANTICOAGULANT THERAPY. HEMATOLOGY MCH 29.4 27.0 - 04/15 Normal MH 31.0 /2012 [facility] HEMATOLOGY MCV 86.1 81.0 - 04/15 Normal MH 99.0 /2012 [facility] HEMATOLOGY Hct 29.4 36.0 - 04/15 LOW MH 48.0 /2012 [facility] HEMATOLOGY RDW 14.0 11.5 - 04/15 Normal MH 14.5 [facility] HEMATOLOGY WBC X 10x3 6.2 3.7 - 10.4 04/15 Normal /2012 [facility] HEMATOLOGY Platelet 178 133 - 450 04/15 Normal [facility] HEMATOLOGY MCHC 34.1 32.0 - 04/15 Normal 36.0 [facility] HEMATOLOGY RBC X 10x6 3.41 4.20 - 04/15 LOW MH 5.40 /2012 [facility] HEMATOLOGY Hgb 10.0 12.0 - 04/15 LOW 16.0 /2012 [facility] HEMATOLOGY MPV 10.1 7.4 - 10.4 04/15 Normal [facility] HEMATOLOGY Segs-Bands # 4.4 1.5 - 8.1 04/15 Normal [facility] HEMATOLOGY Basophils 0.7 0.0 - 1.0 04/15 Normal [facility] HEMATOLOGY Segs 70.7 45.0 - 04/15 Normal 75.0 [facility] HEMATOLOGY Monocytes # 0.3 0.0 - 0.8 04/15 Normal [facility] HEMATOLOGY Lymphocytes 1.2 1.0 - 5.5 04/15 Normal MH # /2012 [facility] HEMATOLOGY Monocytes 4.5 2.0 - 12.0 04/15 Normal /2012 [facility] HEMATOLOGY Eosinophils 4.1 0.0 - 4.0 04/15 HI MH /2012 [facility] HEMATOLOGY Lymphocytes 20.0 20.0 - 04/15 Normal 40.0 [facility] HEMATOLOGY Basophils # 0.0 0.0 - 0.2 04/15 Normal /2012 [facility] HEMATOLOGY Eosinophils 0.3 0.0 - 0.5 04/15 Normal MH # /2012 [facility] BEDSIDE Gluc POC 260 70 - 99 03/15 HI <sup>1</sup>I GLUCOSE Lifscn /2011 nterpretive [facility] TESTING Data: Upper Reportable Limit: 200 mg/dL. BEDSIDE Comment1 Notify 03/15 NA GLUCOSE RN/MD /2011 [facility] TESTING URINALYSIS UA Protein Trace Negative 03/14 [facility] *ABN* /2011 [facility] (03/14/2012 18:40:00) URINALYSIS UA pH 6.0 5.0 - 8.0 03/14 Normal /2011 [facility] URINALYSIS UA Ketones >=80 mg/dL Negative 03/14 NA *NA* /2011 [facility] (03/14/2012 18:40:00) URINALYSIS UA Glucose >=1000 mg/dL Negative 03/14 [facility] *ABN* [facility] (03/14/2012 18:40:00) URINALYSIS UA Blood Negative Negative 03/14 Normal (03/14/2012 18:40:00) [facility] URINALYSIS UA Nitrite Negative Negative 03/14 Normal (03/14/2012 18:40:00) [facility] URINALYSIS UA 0.2 0.1 - 1.0 03/14 Normal Urobilinogen /2011 [facility] URINALYSIS UA Leuk Est Negative Negative 03/14 Normal (03/14/2012 18:40:00) [facility] URINALYSIS UA Bili Negative Negative 03/14 [facility] *NA* [facility] (03/14/2012 18:40:00) URINALYSIS UA Turbidity Clear Clear 03/14 Normal (03/14/2012 18:40:00) [facility] URINALYSIS UA Color Yellow Yellow 03/14 NA *NA* /2011 [facility] (03/14/2012 18:40:00) URINALYSIS UA Spec Grav >=1.030 <=1.030 03/14 [facility] *ABN* [facility] (03/14/2012 18:40:00) URINALYSIS UA Sq Epi Occasional /LPF Few 03/14 Normal (03/14/2012 18:40:00) [facility] URINALYSIS UA WBC 3-5 /HPF None Seen 03/14 Normal (03/14/2012 18:40:00) /2012 [facility] URINALYSIS UA Bacteria Occasional /HPF None Seen 03/14 Normal (03/14/2012 18:40:00) [facility] CHEMISTRY S Preg Negative Negative 03/14 NA MH *NA* /2011 [facility] (03/14/2012 17:50:00) CHEMISTRY Lipase Lvl 45 73 - 393 03/14 LOW /2011 [facility] CHEMISTRY A/G Ratio 1.2 0.7 - 1.6 03/14 Normal [facility] CHEMISTRY Globulin 3.8 2.0 - 4.0 03/14 Normal [facility] CHEMISTRY B/C Ratio 21 6 - 25 03/14 Normal [facility] CHEMISTRY AGAP 16.8 10.0 - 03/14 Normal MH 20.0 [facility] CHEMISTRY Bili Total 1.1 0.2 - 1.3 03/14 Normal [facility] CHEMISTRY Total 8.2 6.4 - 8.4 03/14 Normal [facility] CHEMISTRY Potassium 3.8 3.5 - 5.1 03/14 Normal [facility] CHEMISTRY Creatinine 0.7 0.5 - 1.4 03/14 Normal Lvl [facility] CHEMISTRY Sodium Lvl 139 135 - 145 03/14 Normal [facility] CHEMISTRY Chloride Lvl 99 95 - 109 03/14 Normal [facility] CHEMISTRY CO2 27 24 - 32 03/14 Normal [facility] CHEMISTRY Glucose Lvl 301 70 - 99 03/14 HI <sup>2</sup>I nterpretive [facility] Data: Adult reference range values reflect the clinical guidelines
of the [place] [employer]. CHEMISTRY BUN 15 7 - 22 03/14 Normal [facility] CHEMISTRY ALT 24 0 - 65 03/14 Normal [facility] CHEMISTRY AST 20 0 - 37 03/14 Normal [facility] CHEMISTRY Alk Phos 67 39 - 136 03/14 Normal [facility] CHEMISTRY Albumin Lvl 4.4 3.5 - 5.0 03/14 Normal [facility] CHEMISTRY Calcium Lvl 9.9 8.5 - 10.5 03/14 Normal [facility] HEMATOLOGY MPV 11.8 7.4 - 10.4 03/14 HI /2011 [facility] HEMATOLOGY MCHC 35.9 32.0 - 03/14 Normal MH 36.0 /2011 [facility] HEMATOLOGY MCH 31.2 27.0 - 0924 HI MH 31.0 /2011 [facility] HEMATOLOGY Platelet 189 133 - 450 03/14 Normal MH /2011 [facility] HEMATOLOGY RDW 13.1 11.5 - 03/14 Normal MH 14.5 /2011 [facility] HEMATOLOGY Hct 40.7 36.0 - 03/14 Normal MH 48.0 /2011 [facility] HEMATOLOGY Hgb 14.6 12.0 - 03/14 Normal MH 16.0 /2011 [facility] HEMATOLOGY MCV 87.0 81.0 - 03/14 Normal 99.0 /2011 [facility] HEMATOLOGY WBC 11.7 3.7 - 10.4 03/14 HI MH /2011 [facility] HEMATOLOGY RBC 4.68 4.20 - 03/14 Normal MH 5.40 /2011 [facility] HEMATOLOGY Basophils # 0.0 0.0 - 0.2 03/14 Normal MH /2011 [facility] HEMATOLOGY Basophils 0.2 0.0 - 1.0 03/14 Normal MH /2011 [facility] HEMATOLOGY Eosinophils 0.0 0.0 - 0.5 03/14 Normal MH # /2011 [facility] HEMATOLOGY Monocytes # 0.4 0.0 - 0.8 03/14 Normal MH /2011 [facility] HEMATOLOGY Segs-Bands # 10.6 1.5 - 8.1 03/14 HI MH /2011 [facility] HEMATOLOGY Lymphocytes 0.7 1.0 - 5.5 03/14 LOW MH # /2011 [facility] HEMATOLOGY Monocytes 3.4 2.0 - 12.0 03/14 Normal MH /2011 [facility] HEMATOLOGY Plt Morph Normal 03/14 Normal (03/14/2012 17:50:00) /2011 [facility] HEMATOLOGY Lymphocytes 6.0 20.0 - 03/14 LOW 40.0 /2011 [facility] HEMATOLOGY Eosinophils 0.0 0.0 - 4.0 03/14 Normal MH /2011 [facility] HEMATOLOGY Segs 90.4 45.0 - 03/14 HI MH 75.0 /2011 [facility] HEMATOLOGY RBC Morph Normal 03/14 Normal (03/14/2012 17:50:00) /2011 [facility] BEDSIDE Gluc POC 167 70 - 99 11/29 HI <sup>1</sup>I [facility] GLUCOSE Lifscn /2011 nterpretive Medical TESTING Data: Center Upper Reportable Limit: 200 mg/dL. BEDSIDE Comment1 Notify 11/29 NA [facility] GLUCOSE RN/MD /2011 Medical TESTING Center BEDSIDE Comment2 Sliding 11/29 NA [facility] GLUCOSE Scale /2011 Medical TESTING Center BEDSIDE Gluc POC 189 70 - 99 11/29 HI <sup>2</sup>I [facility] GLUCOSE Lifscn /2011 nterpretive Medical TESTING Data: Center Upper Reportable Limit: 200 mg/dL. BEDSIDE Comment1 Notify 11/29 NA [facility] GLUCOSE RN/ /2011 Medical TESTING Center BEDSIDE Comment2 Sliding 11/29 NA [facility] GLUCOSE Scale /2011 Medical TESTING Center BEDSIDE Comment2 Sliding 11/29 NA [facility] GLUCOSE Scale /2011 Medical TESTING Center BEDSIDE Gluc POC 110 70 - 99 11/29 HI <sup>3</sup>I [facility] GLUCOSE Lifscn /2011 nterpretive Medical TESTING Data: Center Upper Reportable Limit: 200 mg/dL. BEDSIDE Comment1 Notify 11/29 NA [facility] GLUCOSE RN/ /2011 Medical TESTING Center CHEMISTRY U Preg Negative Negative 11/28 Normal [facility] (11/28/2011 19:00:00) Ca dical Center URINALYSIS Micro? Performed 11/28 Normal [facility] (11/28/2011 19:00:00) Ca dical Center URINALYSIS UA Sq Epi Occasional /LPF Few 11/28 Normal [facility] (11/28/2011 19:00:00) Ca dical Center URINALYSIS UA RBC None Seen 0 - 2 11/28 Normal [facility] (11/28/2011 19:00:00) Ca dical Center URINALYSIS UA WBC Occasional 0 - 5 11/28 NA [facility] Medical Center URINALYSIS UA Protein Negative mg/dL Negative 11/28 Normal [facility] (11/28/2011 19:00:00) Ca dical Center URINALYSIS UA pH 7.0 5.0 - 8.0 11/28 Normal [facility] Medical Center URINALYSIS UA Spec Grav 1.020 <=1.030 11/28 Normal Medical Center URINALYSIS UA Turbidity Clear Clear 11/28 Normal [facility] (11/28/2011 19:00:00) Ca dical Center URINALYSIS UA Color Yellow Yellow 11/28 NA [facility] *NA* /2011 Medical (11/28/2011 19:00:00) Ce nter URINALYSIS UA 0.2 0.1 - 1.0 11/28 Normal [facility] Urobilinogen /2011 Medical Center URINALYSIS UA Blood Negative Negative 11/28 Normal [facility] (11/28/2011 19:00:00) Ca dical Center URINALYSIS UA Bili Negative Negative 11/28 NA [place] *NA* Medical (11/28/2011 19:00:00) Ce nter URINALYSIS UA Ketones >=80 mg/dL Negative 11/28 ABN [facility] Baljinder as *ABN* Medical (11/28/2011 19:00:00) Ce nter URINALYSIS UA Glucose >=1000 mg/dL Negative 11/28 ABN [facility] [place] *ABN* Medical (11/28/2011 19:00:00) Ce nter URINALYSIS UA Nitrite Negative Negative 11/28 Normal [facility] (11/28/2011 19:00:00) Ca dical Center URINALYSIS UA Leuk Est Negative Negative 11/[place] (11/28/2011 19:00:00) Ca dical Center CHEMISTRY pO2 [place] 60 20 - 49 11/27 [facility] Center CHEMISTRY pCO2 [place] 41 38 - 52 11/27 Normal Medical Center CHEMISTRY pH [place] 7.45 7.28 - 11/[address] [facility] 7.42 Medical Center CHEMISTRY Temp [place] 37.0 11/27 NA Medical Center CHEMISTRY O2 Sat [place] 92.0 40.0 - 11/[address] [facility] 70.0 Medical Center CHEMISTRY BE [place] 4 -2-2 - 2 11/27 [facility] Medical Center CHEMISTRY HCO3 [place] 28.5 22.0 - 11/27 [facility] [place] 26.0 Medical Center CHEMISTRY Lactic Acid 1.6 0.5 - 2.2 11/27 Normal [facility] Medical Center CHEMISTRY Lipase Lvl 125 73 - 393 11/27 Normal Medical Center CHEMISTRY Albumin Lvl 4.2 3.5 - 5.0 11/27 Normal Medical Center CHEMISTRY CO2 23 24 - 32 11/27 LOW Medical Center CHEMISTRY Chloride Lvl 98 95 - 109 11/27 Normal Medical Center CHEMISTRY Potassium 3.8 3.5 - 5.1 11/27 Normal [facility] Medical Center CHEMISTRY Sodium Lvl 138 135 - 145 11/27 Normal Medical Center CHEMISTRY Creatinine 0.7 0.5 - 1.4 11/27 Normal [facility] Lvl Medical Center CHEMISTRY BUN 9 7 - 22 11/27 Normal Medical Center CHEMISTRY Glucose Lvl 269 70 - 99 11/27 [place] <sup>4</sup>I T ex nterpretive Medical Data: Adult Center reference range values reflect the clinical guidelines of the [place] [employer]. CHEMISTRY B/C Ratio 13 6 - 25 11/27 Normal [facility] CHEMISTRY AGAP 20.8 10.0 - 11/27 HI [place] 20.0 Medical Center CHEMISTRY Calcium Lvl 9.3 8.5 - 10.5 11/27 [facility] CHEMISTRY Total 6.7 6.4 - 8.4 11/27 Normal [facility] Protein [facility] CHEMISTRY A/G Ratio 1.7 0.7 - 1.6 11/27 [facility] CHEMISTRY Globulin 2.5 2.0 - 4.0 11/27 Normal [facility] CHEMISTRY AST 18 0 - 37 11/27 Normal [facility] CHEMISTRY Alk Phos 62 39 - 136 11/27 Normal [facility] CHEMISTRY ALT 32 0 - 65 11/27 Normal [facility] CHEMISTRY Bili Total 0.7 0.2 - 1.3 11/27 Normal [facility] HEMATOLOGY Anisocyte 1+ None Seen 11/27 [facility] ABN Medical (11/28/2011 15:00:00) Ce nter HEMATOLOGY Monocytes # 0.1 0.0 - 0.8 11/27 [place] [facility] HEMATOLOGY Eosinophils 0.0 0.0 - 0.5 11/27 Normal [facility] HEMATOLOGY Basophils # 0.0 0.0 - 0.2 11/27 Normal [facility] HEMATOLOGY Neut Vac Slight None Seen 11/27 [facility] ABN Medical (11/28/2011 15:00:00) Ce nter HEMATOLOGY Large Plt Slight None [facility]00:[facility] Ce nter HEMATOLOGY Segs-Bands # 5.7 1.5 - 8.1 11/27 Normal [facility] HEMATOLOGY Lymphocytes 0.8 1.0 - 5.5 11/27 [place] # /2011 Medical Center HEMATOLOGY Eosinophils 0.2 0.0 - 4.0 11/27 [place] /2011 Medical Center HEMATOLOGY Basophils 0.0 0.0 - 1.0 11/27 Normal /2011 [facility] HEMATOLOGY Monocytes 1.9 2.0 - 12.0 06 LOW /2011 [facility] HEMATOLOGY Segs 86.2 45.0 - 11/27 [facility] [place] 75.0 /2011 Medical [place] HEMATOLOGY Lymphocytes 11.7 20.0 - 11/27 LOW [place] 40.0 /2011 [facility] HEMATOLOGY MPV 10.8 7.4 - 10.4 11/27 [facility] HEMATOLOGY Platelet 161 133 - 450 11/27 Normal [facility] HEMATOLOGY MCHC 35.6 32.0 - 11/27 [facility] [place] 36.0 /2011 [facility] HEMATOLOGY RDW 12.4 11.5 - 11/27 Normal [place] 14.5 /2011 [facility] HEMATOLOGY MCH 30.7 27.0 - 11/27 Normal [place] 31.0 /2011 [facility] HEMATOLOGY MCV 86.1 81.0 - 11/27 Normal [place] 99.0 /2011 [facility] HEMATOLOGY Hct 33.6 36.0 - 11/27 LOW [place] 48.0 /2011 [facility] HEMATOLOGY Hgb 12.0 12.0 - 11/27 [facility] [place] 16.0 /2011 [facility] HEMATOLOGY RBC 3.90 4.20 - 11/27 [facility] [place] 5.40 /2011 [facility] HEMATOLOGY WBC 6.6 3.7 - 10.4 11/27 Normal [facility] CHEMISTRY UDS Note See Note 5 [...] CHEMISTRY U Phencyc Negative Negative 11/27 NA [facility] Scr *NA* Medical (11/28/2011 14:51:00) Ce nter CHEMISTRY U Kelly Scr Negative Negative 11/27 NA [facility] *NA* Medical (11/28/2011 14:51:00) Ce nter CHEMISTRY U Amph Scr Negative Negative 11/27 [facility] *NA* Medical (11/28/2011 14:51:00) Ce nter CHEMISTRY U Opiate Scr Negative Negative 11/27 Located within [facility] *NA Medical (11/28/2011 14:51:00) Ce nter CHEMISTRY U Cocaine Negative Negative 11/27 [facility] Scr *NA* Medical (11/28/2011 14:51:00) Ce nter CHEMISTRY U Cannab Scr Negative Negative 11/27 Located within [facility] s *NA* Medical (11/28/2011 14:51:00) Ce nter CHEMISTRY U Benzodia Negative Negative 11/27 [facility] Scr *NA Medical (11/28/2011 14:51:00) Ce nter BEDSIDE Comment1 Notify 09/17 NA [facility] GLUCOSE RN/MD /2011 Medical TESTING Center BEDSIDE Gluc POC 328 70 - 99 09/17 HI <sup>1</sup>I [facility] GLUCOSE [place] /2011 nterpretive Medical TESTING Data: Center Upper Reportable Limit: 200 mg/dL. CHEMISTRY U Preg Negative Negative 09/17 Normal [facility] (09/18/2011 10:30:00) Ca dical Center URINALYSIS UA WBC None Seen None Seen 09/17 Normal [facility] (09/18/2011 10:30:00) Ca dical Center URINALYSIS UA RBC None Seen 0 - 2 09/17 Normal [facility] (09/18/2011 10:30:00) Ca dical Center URINALYSIS UA Bacteria None Seen None Seen 09/17 [place] (09/18/2011 10:30:00) Ca dical Center URINALYSIS UA Amorph Few /HPF None Seen 09/17 ABN [facility] [place] *ABN* Medical (09/18/2011 10:30:00) Ce nter URINALYSIS Micro? Performed 09/17 Normal [facility] (09/18/2011 10:30:00) Ca dical Center URINALYSIS UA Sq Epi Rare /LPF Few 09/17 Normal [facility] (09/18/2011 10:30:00) Ca dical Center URINALYSIS UA Ketones 15 mg/dL Negative 09/17 ABN [facility] *ABN* Medical (09/18/2011 10:30:00) Ce nter URINALYSIS UA Glucose >=1000 mg/dL Negative 09/17 ABN [place] * Medical (09/18/2011 10:30:00) Ce nter URINALYSIS UA Protein Trace Negative 09/17 ABN [facility] Medical (09/18/2011 10:30:00) Ce nter URINALYSIS UA 0.2 0.1 - 1.0 09/17 Normal [facility] Urobilinogen /2011 [facility] URINALYSIS UA Blood Negative Negative 09/17 Normal [facility] (09/18/2011 10:30:00) Ca dical Center URINALYSIS UA Bili Negative Negative 09[facility]17 [facility] (09/18/2011 10:30:00) Ce nter URINALYSIS UA Leuk Est Negative Negative 09/17 [place] (09/18/2011 10:30:00) Ca dical Center URINALYSIS UA Nitrite Negative Negative 09/17 Normal [facility] (09/18/2011 10:30:00) Ca dical Center URINALYSIS UA pH 7.5 5.0 - 8.0 09/17 Normal Medical Center URINALYSIS UA Spec Grav 1.010 <=1.030 09/17 Normal Medical Center URINALYSIS UA Turbidity Slight Cloudy Clear 09/17 Normal [facility] (09/18/2011 10:30:00) Ca dical Center URINALYSIS UA Color Yellow Yellow 09/17 NA *NA* Medical (09/18/2011 10:30:00) Ce nter CHEMISTRY Phosphorus 4.4 2.5 - 4.5 09/17 Normal Medical Center CHEMISTRY Magnesium 1.6 1.8 - 2.4 09/17 LOW [facility] l [facility] Center BEDSIDE Gluc POC >400 70 - 99 09/17 CRIT <sup>2</sup>I [facility] GLUCOSE [place] /2011 nterpretive Medical TESTING [...] CO2 30 24 - 32 09/17 Normal [facility] CHEMISTRY Potassium 3.5 3.5 - 5.1 09/17 Normal [facility] Medical Center CHEMISTRY Sodium Lvl 133 135 - 145 09/17 LOW Medical Center CHEMISTRY Creatinine 1.3 0.5 - 1.4 09/17 Normal [facility] Medical Center CHEMISTRY Glucose Lvl 383 70 - 99 09/17 [place] <sup>3</sup>I T ex nterpretive Medical Data: Adult Center reference range values reflect the clinical guidelines of the [place] [employer]. CHEMISTRY BUN 17 7 - 22 09/17 Normal [facility] CHEMISTRY AGAP 14.5 10.0 - 09/17 [...] 0.0 - 4.0 09/17 [place] [facility] HEMATOLOGY Basophils 0.0 0.0 - 1.0 09/17 Normal [facility] HEMATOLOGY Eosinophils 0.0 0.0 - 0.5 09/17 [place] # Medical [place] HEMATOLOGY Monocytes # 0.3 0.0 - 0.8 09/17 [place] [facility] HEMATOLOGY Segs 92.0 45.0 - 09/17 HI [place] 75.0 /2011 Medical Center HEMATOLOGY Lymphocytes 4.9 20.0 - 09/17 LOW [place] 40.0 /2011 Medical Center HEMATOLOGY Spherocyte Rare None Seen 09/17 [facility] *ABN* Medical (09/18/2011 08:52:00) Ce nter HEMATOLOGY Large Plt Slight None Seen 09/17 [facility] *ABN* Medical (09/18/2011 08:52:00) Ce nter HEMATOLOGY Microcyte 1+ None [facility]en 09[facility]17 [facility] (09/18/2011 08:52:00) Ce nter HEMATOLOGY Schistocyte Rare 09/17 NA Medical Center HEMATOLOGY Macrocyte 1+ None Seen 09/17 [facility] *ABN* Medical (09/18/2011 08:52:00) Ce nter HEMATOLOGY Lymphocytes 0.6 1.0 - 5.5 09/17 [place] # /2011 Medical Center HEMATOLOGY Segs-Bands # 10.8 1.5 - 8.1 09/17 [place] Baljinder as /2011 Medical Center HEMATOLOGY Basophils # 0.0 0.0 - 0.2 09/17 [facility]2011 [facility] HEMATOLOGY Anisocyte 1+ None Seen 09/17 ABN [facility] *ABN* Medical (09/18/2011 08:52:00) Ce nter IMMUNOLOGY [facility]-HIV 1/2 Negative Negative 09/17 NA [facility] Ab *NA* Medical (09/18/2011 08:52:00) Ce nter BEDSIDE Gluc POC 215 70 - 99 09/08 [place] <sup>1</sup>I [facility] TESTING Data: Center Upper Reportable Limit: 200 mg/dL. BEDSIDE Comment1 Notify 09/08 [facility] GLUCOSE RN/ Medical TESTING Center BEDSIDE Comment1 Notify 09/08 [facility] GLUCOSE RN/MD /2011 Medical TESTING Center BEDSIDE Gluc POC 91 65 - 110 09/08 Normal <sup>2</sup>I [facility] TESTING Data: Center Upper Reportable Limit: 200 mg/dL. BEDSIDE Comment1 Notify 09/08 [facility] GLUCOSE RN/MD /2011 Medical TESTING Center BEDSIDE Gluc POC 148 65 - 110 09/08 [place] <sup>3</sup>I [facility] TESTING Data: Center Upper Reportable Limit: 200 mg/dL. CHEMISTRY Sodium Lvl 143 135 - 145 09/07 Normal [facility] CHEMISTRY Glucose Lvl 105 09/07 NA <sup>4</sup>I [place] nterpretive Medical Data: Center Reference Ranges : 0 - 7 days : 41 - 90 mg/dL 7 days - 150 yrs : 70 - 99 mg/dL (fasting), based on the clinical recommendatio ns of the [place] [employer]. CHEMISTRY CO2 29 24 - 32 09/07 Normal [facility] CHEMISTRY Chloride Lvl 103 95 - 109 09/07 Normal [facility] CHEMISTRY BUN 10 7 - 22 09/07 Normal [facility] CHEMISTRY Potassium 3.8 3.5 - 5.1 [...] Creatinine 0.5 0.5 - 1.4 09/06 Normal [facility] Medical Center CHEMISTRY BUN 10 7 - 22 09/06 Normal Medical Center CHEMISTRY Potassium 4.1 3.5 - 5.1 09/06 Normal [facility] Medical Center CHEMISTRY Sodium Lvl 141 135 - 145 09/06 Normal Medical Center CHEMISTRY Glucose Lvl 83 09/06 NA <sup>5</sup>I T ex nterpretive Medical Data: Center Reference Ranges : 0 - 7 days : 41 - 90 mg/dL 7 days - 150 yrs : 70 - 99 mg/dL (fasting), based on the clinical recommendatio ns of the [place] [employer]. CHEMISTRY Calcium Lvl 8.4 8.5 - 10.5 09/06 LOW a [facility] Center CHEMISTRY AGAP 14.1 10.0 - 09/06 [...] 12.7 12.0 - 09/06 Normal [place] 14.7 [facility] HEMATOLOGY PTT 28.5 22.9 - 09/06 Normal <sup>9</sup>I [place] 35.8 /2011 nterpretive Medical Data: Heparin Center Therapeutic Range: 57 - 92 Seconds HEMATOLOGY Eosinophils 0.1 0.0 - 0.5 09/06 Normal [facility] HEMATOLOGY Basophils # 0.0 0.0 - 0.2 09/06 [facility] HEMATOLOGY Basophils 0.4 0.0 - 1.0 09/06 Normal [facility] HEMATOLOGY Segs-Bands # 2.1 1.5 - 8.1 09/06 Normal [facility] HEMATOLOGY Monocytes 9.0 2.0 - 12.0 09/06 Normal [facility] HEMATOLOGY Eosinophils 2.4 0.0 - 4.0 09/06 [facility] HEMATOLOGY Monocytes # 0.4 0.0 - 0.8 09/06 Normal [facility] HEMATOLOGY Lymphocytes 2.0 1.0 - 5.5 09/06 [place] [facility] HEMATOLOGY Lymphocytes 42.8 20.0 - 09/06 HI [place] 40.0 [facility] HEMATOLOGY Segs 45.4 45.0 - 09/06 Normal [place] 75.0 [facility] CHEMISTRY Chloride Lvl 105 95 - 109 09/06 Normal [facility] CHEMISTRY Potassium 4.1 3.5 - 5.1 09/06 Normal [facility] l [facility] CHEMISTRY Sodium Lvl 143 135 - 145 09/06 Normal [facility] CHEMISTRY CO2 29 24 - 32 09/06 Normal [facility] CHEMISTRY Calcium Lvl 8.7 8.5 - 10.5 09/06 Normal a [facility] CHEMISTRY BUN 6 7 - 22 09/06 LOW [facility] CHEMISTRY Creatinine 0.6 0.5 - 1.4 09/06 Normal [facility] Lvl [facility] CHEMISTRY Glucose Lvl 118 09/06 NA <sup>6</sup>I [place] nterpretive Medical Data: Center Reference Ranges : 0 - 7 days : 41 - 90 mg/dL 7 days - 150 yrs : 70 - 99 mg/dL (fasting), based on the clinical recommendatio ns of the [place] [employer]. CHEMISTRY AGAP 13.1 10.0 - 09/06 Normal [facility] 20.0 [facility] HEMATOLOGY Basophils # 0.0 0.0 - 0.2 09/06 Normal [facility] HEMATOLOGY Monocytes # 0.3 0.0 - 0.8 09/06 Normal [facility] HEMATOLOGY Eosinophils 0.1 0.0 - 0.5 09/06 Normal [facility] HEMATOLOGY Segs-Bands # 2.8 1.5 - 8.1 09/06 Normal [facility] HEMATOLOGY Lymphocytes 1.7 1.0 - 5.5 09/06 Normal [facility] HEMATOLOGY Basophils 0.6 0.0 - 1.0 09/06 Normal [facility] HEMATOLOGY Monocytes 6.9 2.0 - 12.0 09/06 Normal [facility] HEMATOLOGY Eosinophils 2.0 0.0 - 4.0 09/06 Normal [facility] HEMATOLOGY Segs 55.8 45.0 - 09/06 Normal [facility] 75.0 [facility] HEMATOLOGY Lymphocytes 34.7 20.0 - 09/06 Normal [facility] 40.0 [facility] HEMATOLOGY PTT 32.2 22.9 - 09/06 Normal <sup>10</sup> [facility] 35.8 Interpretive Medical Data: [facility] Center Therapeutic Range: 57 - 92 Seconds HEMATOLOGY PT 13.3 12.0 - 09/06 Normal [facility] 14.7 [facility] HEMATOLOGY INR 1.01 0.85 - 09/06 Normal <sup>8</sup>[place] 1. nterpretive Medical Data: Center RECOMMENDED RANGES FOR PROTIME INR: 2.0-3.0 for most medical and surgical thromboemboli c states. 2.5-3.5 for artificial heart valves and recurrent embolism. INR SHOULD BE USED ONLY FOR PATIENTS ON STABLE ANTICOAGULANT THERAPY. HEMATOLOGY Hct 27.5 36.0 - 09/06 LOW [place] 48.0 /2011 [facility] HEMATOLOGY RBC 3.34 4.20 - 09/06 [facility] 5.40 /2011 [facility] HEMATOLOGY Hgb 9.7 12.0 - 09/06 LOW [facility] 16.0 /2011 [facility] HEMATOLOGY WBC 5.0 3.7 - 10.4 09/06 Normal [facility] HEMATOLOGY MPV 9.2 7.4 - 10.4 09/06 Normal [facility] HEMATOLOGY Platelet 240 133 - 450 09/06 Normal [facility] HEMATOLOGY RDW 14.3 11.5 - 09/06 [facility] 14.5 /2011 [facility] HEMATOLOGY MCHC 35.2 32.0 - 09/06 [facility] 36.0 /2011 [facility] HEMATOLOGY MCH 28.9 27.0 - 09/06 [facility] 31.0 /2011 [facility] HEMATOLOGY MCV 82.1 81.0 - 09/06 [facility] 99.0 /2011 [facility] CHEMISTRY Magnesium 2.1 1.8 - 2.4 09/02 [facility] Lvl [facility] Microbiolo Culture: 09/01 [facility] Aspirate/Bod [facility] Fluid/Tissue Microbiolo Culture: 09/01 [facility] Anaerobic [facility] CHEMISTRY Temp [place] 37.0 08/31 NA [facility] CHEMISTRY O2 Sat [place] 27.0 40.0 - 08/31 [facility] 70.0 [facility] CHEMISTRY pCO2 [place] 47 38 - 52 08/31 Normal [facility] CHEMISTRY pH [place] 7.37 7.28 - 08/31 [facility] 7.42 /2011 [facility] CHEMISTRY BE [place] 1 -2-2 - 2 08/31 Normal [facility] CHEMISTRY HCO3 [place] 27.2 22.0 - 08/31 HI [facility] 26.0 [facility] CHEMISTRY pO2 [place] 19 20 - 49 08/31 LOW [facility] Microbiolo Culture: 08/31 [facility] Blood /2011 [facility] Center Microbiolo Culture: 08/31 [facility] Wound/Absces /2011 Medical s w/[facility] Stain CHEMISTRY Lactic Acid 1.0 0.5 - 2.2 08/31 Normal [facility] Medical Center CHEMISTRY U Preg Negative Negative 08/31 Normal [facility] (09/01/2011 07:20:00) Ca dical Center URINALYSIS UA Sq Epi Occasional /LPF Few 08/31 Normal [facility] (09/01/2011 07:20:00) Ca dical Center URINALYSIS UA Leuk Est Negative Negative 08/31 [place] (09/01/2011 07:20:00) Ca dical Center URINALYSIS UA Nitrite Negative Negative 08/31 Normal [facility] (09/01/2011 07:20:00) Ca dical Center URINALYSIS UA 0.2 0.1 - 1.0 08/31 Normal [facility] Urobilinogen /2011 Medical Center URINALYSIS UA Blood Negative Negative 08/31 Normal [facility] (09/01/2011 07:20:00) Ca dical Center URINALYSIS UA Ketones >=80 mg/dL Negative 08/31 ABN Baljinder as *ABN* /2011 Medical (09/01/2011 07:20:00) Ce nter URINALYSIS UA Protein Negative Negative 08/31 Normal [facility] (09/01/2011 07:20:00) Ca dical Center URINALYSIS UA pH 6.0 5.0 - 8.0 08/31 Normal Medical Center URINALYSIS UA Bili Negative Negative 08/31 Normal [facility] (09/01/2011 07:20:00) Ca dical Center URINALYSIS UA Glucose >=1000 mg/dL Negative 08/31 ABN [place] *ABN* /2011 Medical (09/01/2011 07:20:00) Ce nter URINALYSIS UA Spec Grav 1.035 <=1.030 08/31 [place] [facility] URINALYSIS UA Turbidity Clear Clear 08/31 Normal [facility] (09/01/2011 07:20:00) Me dical Center URINALYSIS UA Color Yellow Yellow 08/31 NA [place] *NA* /2011 Medical (09/01/2011 07:20:00) Ce nter CHEMISTRY Lactic Acid 2.8 0.5 - 2.2 08/31 HI [facility] Medical Center CHEMISTRY Magnesium 1.5 1.8 - 2.4 08/31 LOW [facility] HEMATOLOGY Polychrom Slight None Seen 08/31 Normal [facility]/01/2011 02:47:00[facility] Anisocyte 1+ None Seen 08/31 ABN [facility] *ABN Medical (09/01/2011 02:47:00) Ce nter HEMATOLOGY Large Plt Slight None Seen 08/31 [facility] (09/01/2011 02:47:00) Ce nter HEMATOLOGY Tear Cell Occasional 08/31 NA [facility] HEMATOLOGY Elliptocyte Slight None Seen 08/31 [facility] [place] * Medical (09/01/2011 02:47:00) Ce nter BEDSIDE Comment1 Notify 08/22 NA [facility] GLUCOSE RN/MD Medical TESTING Center BEDSIDE Gluc POC 134 65 - 110 08/22 [place] <sup>1</sup>I [facility] GLUCOSE [facility] nterpretive Medical TESTING Data: [place] Upper Reportable Limit: 200 mg/dL. BEDSIDE Gluc POC 182 65 - 110 08/22 [place] <sup>2</sup>I [facility] GLUCOSE [facility] nterpretive Medical TESTING Data: [place] Upper Reportable Limit: 200 mg/dL. BEDSIDE Comment1 Notify 08/22 [facility] GLUCOSE RN/MD [facility] TESTING Center CHEMISTRY Phosphorus 3.0 2.5 - 4.5 08/22 Normal [facility] CHEMISTRY Magnesium 1.8 1.8 - 2.4 08/22 Normal [facility] CHEMISTRY Chloride Lvl 107 95 - 109 08/22 Normal [facility] CHEMISTRY Potassium 3.0 3.5 - 5.1 08/22 CRIT <sup>4</sup>R [place] esult Medical Comment: Center Critical Result(s) called to annie genao at 08/23/2011 5:18 by tac. Read back OK. CHEMISTRY Sodium Lvl 141 135 - 145 08/22 Normal [facility] CHEMISTRY Creatinine 0.6 0.5 - 1.4 08/22 Normal [facility] CHEMISTRY CO2 23 24 - 32 03 LOW [facility] CHEMISTRY Calcium Lvl 7.3 8.5 - 10.5 04 [place] [facility] CHEMISTRY Glucose Lvl 136 03 NA <sup>5</sup>I T ex nterpretive Medical Data: Center Reference Ranges : 0 - 7 days : 41 - 90 mg/dL 7 days - 150 yrs : 70 - 99 mg/dL (fasting), based on the clinical recommendatio ns of the [place] [employer]. CHEMISTRY AGAP 14.0 10.0 - 03/04 Normal [place] 20.0 [facility] CHEMISTRY BUN 5 7 - 22 03/04 LOW [facility] HEMATOLOGY Segs 69.6 45.0 - 03/04 Normal [place] 75.0 [facility] HEMATOLOGY Lymphocytes 21.5 20.0 - 03/04 Normal [place] 40.0 [facility] HEMATOLOGY Monocytes 7.6 2.0 - 12.0 03/ Normal [facility] HEMATOLOGY Eosinophils 1.0 0.0 - 4.0 03/ [place] [facility] HEMATOLOGY Basophils 0.3 0.0 - 1.0 03/ Normal [facility] HEMATOLOGY Segs-Bands # 4.8 1.5 - 8.1 03/ Normal [facility] HEMATOLOGY Eosinophils 0.1 0.0 - 0.5 03/ [place] # [facility] HEMATOLOGY Lymphocytes 1.5 1.0 - 5.5 03/ [place] # [facility] HEMATOLOGY Monocytes # 0.5 0.0 - 0.8 03/ [place] [facility] HEMATOLOGY Basophils # 0.0 0.0 - 0.2 03/ [place] [facility] HEMATOLOGY MPV 11.0 7.4 - 10.4 03/ HI Medical [place] HEMATOLOGY Platelet 161 133 - 450 03/ Normal [facility] HEMATOLOGY MCH 29.6 27.0 - 03/04 Normal [place] 31.0 [facility] HEMATOLOGY MCHC 35.4 32.0 - 03/04 Normal [place] 36.0 [facility] HEMATOLOGY RDW 14.1 11.5 - 03/04 Normal [place] 14.5 Medical [place] HEMATOLOGY WBC 6.8 3.7 - 10.4 03/ Normal [facility] HEMATOLOGY MCV 83.5 81.0 - 03 Normal [facility] 99.0 /2011 [facility] HEMATOLOGY RBC 4.44 4.20 - 03 Normal [facility] 5.40 /2011 [facility] HEMATOLOGY Hgb 13.1 12.0 - 08/22 Normal [facility] 16.0 /2011 [facility] HEMATOLOGY Hct 37.1 36.0 - 08/22 Normal [facility] 48.0 /2011 Medical Center BEDSIDE Comment1 Notify 08/22 NA [facility] GLUCOSE RN/MD /2011 Medical TESTING Center BEDSIDE Gluc POC 332 65 - 110 08/22 [place] <sup>3</sup>I [facility] GLUCOSE Lif[place]n /2011 nterpretive Medical TESTING Data: Center Upper Reportable Limit: 200 mg/dL. CHEMISTRY Phosphorus 2.5 2.5 - 4.5 08/21 Normal [facility] CHEMISTRY Glucose Lvl 201 08/21 NA <sup>6</sup>I [place] nterpretive Medical Data: Center Reference Ranges : 0 - 7 days : 41 - 90 mg/dL 7 days - 150 yrs : 70 - 99 mg/dL (fasting), based on the clinical recommendatio ns of the [place] [employer]. CHEMISTRY BUN 7 7 - 22 08/21 Normal [facility] CHEMISTRY CO2 19 24 - 32 08/21 [facility] CHEMISTRY Creatinine 0.3 0.5 - 1.4 08/21 [facility] Lvl [facility] CHEMISTRY Sodium Lvl 137 135 - 145 08/21 Normal [facility] CHEMISTRY Chloride Lvl 103 95 - 109 08/21 [facility] CHEMISTRY Potassium 3.6 3.5 - 5.1 08/21 Normal [facility] CHEMISTRY Calcium Lvl 7.9 8.5 - 10.5 08/21 [facility] CHEMISTRY AGAP 18.6 10.0 - 03 Normal [facility] 20.0 [facility] CHEMISTRY Magnesium 1.6 1.8 - 2.4 08/21 [facility] HEMATOLOGY Basophils # 0.0 0.0 - 0.2 08/21 Normal [facility] HEMATOLOGY Eosinophils 0.4 0.0 - 4.0 08/21 Normal [facility] HEMATOLOGY Basophils 0.5 0.0 - 1.0 03/03 [...] Phosphorus 2.6 2.5 - 4.5 03/ Normal [facility] CHEMISTRY Magnesium 1.8 1.8 - 2.4 03/ Normal [facility] Lvl Medical Center CHEMISTRY Potassium 3.7 3.5 - 5.1 03/ Normal [facility] Lvl Medical Center CHEMISTRY Sodium Lvl 137 135 - 145 03/ Normal Medical Center CHEMISTRY Creatinine 0.6 0.5 - 1.4 03/ Normal [facility] Lvl [facility] CHEMISTRY BUN 16 7 - 22 03 Normal [facility] CHEMISTRY Glucose Lvl 200 08/20 NA <sup>7</sup>I [place] nterpretive Medical Data: Center Reference Ranges : 0 - 7 days : 41 - 90 mg/dL 7 days - 150 yrs : 70 - 99 mg/dL (fasting), based on the clinical recommendatio ns of the [place] [employer]. CHEMISTRY Calcium Lvl 8.3 8.5 - 10.5 08/20 [place] [facility] CHEMISTRY AGAP 19.7 10.0 - 03 Normal [place] 20.0 [facility] CHEMISTRY Chloride Lvl 99 95 - 109 08/20 Normal [facility] CHEMISTRY CO2 22 24 - 32 08/20 LOW [facility] HEMATOLOGY Platelet 172 133 - 450 08/20 Normal [facility] HEMATOLOGY MPV 12.0 7.4 - 10.4 08/20 [facility] HEMATOLOGY WBC 7.3 3.7 - 10.4 08/20 Normal [facility] HEMATOLOGY RDW 14.6 11.5 - 08/[address] [facility] 14.5 /2011 [facility] HEMATOLOGY MCHC 35.0 32.0 - 03 Normal [facility] 36.0 /2011 [facility] HEMATOLOGY RBC 4.54 4.20 - 08/20 Normal [facility] 5.40 /2011 [facility] HEMATOLOGY Hct 37.6 36.0 - 08/20 Normal [facility] 48.0 [facility] HEMATOLOGY MCV 82.9 81.0 - 08/20 Normal [facility] 99.0 [facility] HEMATOLOGY MCH 29.0 27.0 - 03 Normal [facility] 31.0 /2011 [facility] HEMATOLOGY Hgb 13.2 12.0 - 03 Normal <sup>8</sup>[place] 16.0 esult Medical Comment: Center rechecked, no clot seen HEMATOLOGY Elliptocyte Slight None Seen 08/20 [place] *ABN* /2011 Medical (08/21/2011 04:28:00) Ce nter HEMATOLOGY Polychrom Slight None Seen 08/20 Normal [facility] (08/21/2011 04:28:00) Ca dical Center HEMATOLOGY Basophils # 0.0 0.0 - 0.2 03 [place] [facility] HEMATOLOGY Hypochrom Slight None Seen 08/20 Normal [facility] (08/21/2011 04:28:00) Ca dical Center HEMATOLOGY Monocytes # 0.6 0.0 - 0.8 08/20 [place] [facility] HEMATOLOGY Eosinophils 0.0 0.0 - 0.5 08/20 [place] # [facility] HEMATOLOGY Segs-Bands # 5.3 1.5 - 8.1 08/20 Normal [facility] HEMATOLOGY Lymphocytes 1.3 1.0 - 5.5 08/20 [place] # [facility] HEMATOLOGY Basophils 0.5 0.0 - 1.0 08/20 Normal [facility] HEMATOLOGY Monocytes 8.5 2.0 - 12.0 08/20 Normal Medical Center HEMATOLOGY Eosinophils 0.3 0.0 - 4.0 08/20 [place] [facility] HEMATOLOGY Lymphocytes 17.3 20.0 - 08/20 LOW [place] 40.0 Medical Center HEMATOLOGY Segs 73.4 45.0 - 08/20 Normal [place] 75.0 Medical Center BEDSIDE Comment2 Verify 08/19 NA [facility] GLUCOSE w/Lab Medical TESTING Center CHEMISTRY S Preg Negative Negative Normal [facility] (08/19/2011 15:58:00) Ca dical Center CHEMISTRY Lipase Lvl 169 73 - 393 Normal [facility] CHEMISTRY ALT 54 0 - 65 Normal [facility] CHEMISTRY Alk Phos 110 39 - 136 Normal [facility] CHEMISTRY Bili Direct 0.1 0.0 - 0.3 Normal [facility] CHEMISTRY Bili Total 0.9 0.2 - 1.3 Normal [facility] CHEMISTRY Albumin Lvl 4.4 3.5 - [...] UA Bacteria Occasional /HPF None Seen Normal [facility] (08/19/2011 15:58:00) Me dical Center URINALYSIS UA RBC 3-5 /HPF 0 - 2 ABN [place] *ABN* Medical (08/19/2011 15:58:00) Ce nter URINALYSIS UA WBC 3 0 - 5 NA Medical Center URINALYSIS UA Mucus Few /LPF None Seen Normal [facility] (08/19/2011 15:58:00) Ca dical Center URINALYSIS UA Amorph Occasional /HPF None Seen ABN [facility] [place] *ABN* Medical (08/19/2011 15:58:00) Ce nter URINALYSIS UA 0.2 0.1 - 1.0 Normal [facility] Urobilinogen [facility] URINALYSIS UA Sq Epi Rare /LPF Few Normal [facility] (08/19/2011 15:58:00) Me dical Center URINALYSIS Micro? Performed Normal [facility] (08/19/2011 15:58:00) Me dical Center URINALYSIS UA Leuk Est Negative Negative [place] (08/19/2011 15:58:00) Me dical Center URINALYSIS UA Nitrite Negative Negative Normal [facility] (08/19/2011 15:58:00) Me dical Center URINALYSIS UA pH 5.5 5.0 - 8.0 Normal Medical Center URINALYSIS UA Blood Trace Negative ABN [facility] *ABN* Medical (08/19/2011 15:58:00) Ce nter URINALYSIS UA Bili Negative Negative Normal [facility] (08/19/2011 15:58:00) Me dical Center URINALYSIS UA Ketones 80 mg/dL Negative ABN [place] *ABN* Medical (08/19/2011 15:58:00) Ce nter URINALYSIS UA Glucose >=1000 mg/dL Negative [place] *ABN* Medical (08/19/2011 15:58:00) Ce nter URINALYSIS UA Protein Negative Negative Normal [facility] (08/19/2011 15:58:00) Ca dical Center URINALYSIS UA Turbidity Slight Cloudy Clear Normal [facility] (08/19/2011 15:58:00) Ca dical Center URINALYSIS UA Spec Grav 1.025 <=1.030 NA Medical Center URINALYSIS UA Color Yellow Yellow Normal [facility] (08/19/2011 15:58:00) Ca dical Center CHEMISTRY AST 23 0 - 37 Normal [facility] CHEMISTRY Bili Total 1.0 0.2 - 1.3 Normal [facility] CHEMISTRY Alk Phos 115 39 - 136 Normal [facility] CHEMISTRY ALT 56 0 - 65 Normal [facility] CHEMISTRY Total 9.0 6.4 - 8.[address] [facility] Protein [facility] CHEMISTRY Albumin Lvl 4.8 3.5 - 5.0 Normal [facility] CHEMISTRY Globulin 4.2 2.0 - 4.0 [facility] CHEMISTRY A/G Ratio 1.1 0.7 - 1.6 Normal [facility] CHEMISTRY B/C Ratio 30 6 - 25 [facility] HEMATOLOGY RBC Morph Normal Normal [facility] (08/19/2011 15:13:00) Ca dicma Center HEMATOLOGY Large Plt Slight None Seen ABN [facility] *ABN* Medical (08/19/2011 15:13:00) Ce nter HEMATOLOGY Atypical 0.0 <=0.0 Normal [facility] Lymphs [facility] HEMATOLOGY Bands 0.0 0.0 - 11.0 Normal [facility] CHEMISTRY O2 Sat [place] 74.0 40.0 - [facility] [place] 70.0 Medical Center CHEMISTRY Temp [place] 37.0 NA Medical Center CHEMISTRY pO2 [place] 42 20 - 49 Normal [facility] CHEMISTRY HCO3 [place] 17.3 22.0 - LOW [facility] 26.0 [facility] CHEMISTRY pH [place] 7.34 7.28 - Normal [facility] 7.42 /2011 [facility] CHEMISTRY pCO2 [place] 32 38 - 52 LOW [facility] CHEMISTRY BE [place] -7 -2-2 - 2 LOW [facility] IMMUNOLOGY CDC-HIV 1/2 Negative Negative NA MARY ALICE [facility] *NA* /2011 Medical (08/19/2011 14:34:00) Ce nter Pathology Reports No Data Provided for This Section Diagnostic Reports Report Value Date Source Abdomen RUQ US EXAM: US ABDOMEN LIMITED 07/26/2016 MARY ALICE [facility] EXAM: Abdomen RUQ US Center DATE: 07/26/2016 7:29 AM DRUM ATTENDANT INDICATION: Abdominal pain, acute ADDITIONAL INFORMATION: Sign [...] DX EXAM: XR CHEST 1 VIEW 07/23/2016 [facility] edical DATE: 07/23/2016 9:47 PM DRUM ATTENDANT Cente r INDICATION: Chest pain COMPARISON: X-ray chest 1 view performed r 2015 TECHNIQUE: AP chest FINDINGS: No pulmonary o r pleural-based abnormality is identified. Pulmonary vascularity is normal. The heart size is stable. No acute bony abnormality is identified. IMPRESSION: 1. No acute radiographic abnormality of the steven st. 2. Stable mild cardiomegaly. Retroperitoneal Complete EXAM: US RENAL 06/11/2016 [facility] US DATE: 06/11/2016 6:53 AM DRUM ATTENDANT [place] ter INDICATION: Abdominal disten tion/proteinuria CT [...] DX EXAM: XR CHEST 1 VIEW 06/10/2016 [facility] edical DATE: 06/10/2016 1108 hours Cent er [...] CT ABDOMEN AND PELVIS WITH CONTRAST: 1 [facility] CLINICAL HISTORY: Abdominal pain, acute TECHNIQUE [...] Comments Source Systolic (mm Hg) 131 07/30/2016 [facility] Diastolic (mm Hg) 86 07/30/2016 [facility] Respitory Rate 20 07/30/2016 [facility] [place] [facility] Heart Rate 65 07/30/2016 [facility] Temperature Oral (F) 97.4 F 07/30/2016 [facility] Systolic (mm Hg) 169 07/30/2016 [facility] Diastolic (mm Hg) 99 07/30/2016 [facility] Heart Rate 66 07/30/2016 [facility] Temperature Oral (F) 97.2 F 07/30/2016 [facility] Respitory Rate 18 07/30/2016 [facility] [place] [facility] Heart Rate 67 07/30/2016 [facility] [place] [facility] Temperature Oral (F) 97.0 F 07/30/2016 [facility] Respitory Rate 16 07/30/2016 [facility] Systolic (mm Hg) 122 07/30/2016 [facility] dical Center Diastolic (mm Hg) 80 07/30/2016 [facility] edical Center Weight 92.273 07/24/2016 [facility] BMI Calculated 36.04 07/24/2016 [facility] Height 160.02 cm 07/24/2016 [facility] Respitory Rate 20 06/15/2016 [facility] Center Systolic (mm Hg) 169 06/15/2016 [facility] dical Center Diastolic (mm Hg) 90 06/15/2016 [facility] edical Center Respitory Rate 16 06/15/2016 [facility] Center Systolic (mm Hg) 151 06/15/2016 [facility] dical Center Diastolic (mm Hg) 73 06/15/2016 [facility] edical Center Respitory Rate 22 06/15/2016 [facility] Systolic (mm Hg) 176 06/15/2016 [facility] dical Center Diastolic (mm Hg) 95 06/15/2016 [facility] Temperature Oral (F) 97.1 F 06/14/2016 [facility] Center Temperature Oral (F) 97.1 F 06/14/2016 [facility] Center Temperature Oral (F) 96.8 F 06/12/2016 [facility] Weight 103.182 06/11/2016 [facility] Height 160.02 cm 06/11/2016 [facility] BMI Calculated 40.3 06/11/2016 [facility] Heart Rate 82 06/11/2016 [facility] Heart Rate 81 06/11/2016 [facility] Heart Rate 82 06/10/2016 [facility] Weight 86.364 06/10/2016 [facility] BMI Calculated 33.73 06/10/2016 [facility] Center Height 160.02 cm 06/10/2016 [facility] Temperature Oral (F) 98.0 F 06/26/2014 [facility] Systolic (mm Hg) 111 06/26/2014 [facility] dical Center Heart Rate 104 06/26/2014 [facility] [place] Diastolic (mm Hg) 70 06/26/2014 [facility] Respitory Rate 18 06/26/2014 [facility] [place] [facility] Systolic (mm Hg) 109 06/26/2014 [facility] dical Center Diastolic (mm Hg) 66 06/26/2014 [facility] Respitory Rate 18 06/26/2014 [facility] [place] [facility] Temperature Oral (F) 98.0 F 06/26/2014 [facility] Temperature Oral (F) 98.2 F 06/26/2014 [facility] Respitory Rate 21 06/26/2014 [facility] [place] [facility] Systolic (mm Hg) 106 06/26/2014 [facility] dical Center Diastolic (mm Hg) 65 06/26/2014 [facility] Heart Rate 118 06/26/2014 [facility] [place] Heart Rate 113 06/26/2014 [facility] Height 154.94 cm 06/26/2014 [facility] [place] Weight 75 06/26/2014 [facility] BMI Calculated 31.24 06/26/2014 [facility] [place] [facility] Respitory Rate 18 04/15/2013 [facility] Diastolic (mm Hg) 89 04/15/[address] Heart Rate 81 04/15/2013 [facility] Systolic (mm Hg) 149 04/15/2013 [facility] Temperature Oral (F) 98.7 F 04/15/2013 [facility] Resp[facility] Rate 18 04/15/2013 [facility] Diastolic (mm Hg) 87 04/15/[address] Systolic (mm Hg) 145 04/15/2013 [facility] Temperature Oral (F) 98.2 F 04/15/2013 [facility] Heart Rate 88 04/15/2013 [facility] Height 160.02 cm 04/15/2013 [facility] Weight 63.636 04/15/2013 [facility] Temperature Oral (F) 98.6 F 04/15/2013 [facility] Respitory Rate 18 04/15/2013 [facility] Heart Rate 85 04/15/2013 [facility] Diastolic (mm Hg) 107 04/15/[address] Systolic (mm Hg) 172 04/15/2013 [facility] Weight 58.636 03/14/2012 [facility] Systolic (mm Hg) 138 12/01/2011 [facility] dical Center Respitory Rate 18 12/01/2011 [facility] Heart Rate 90 12/01/2011 [facility] Medica l Center Diastolic (mm Hg) 80 12/01/2011 [facility] edical Center Temperature Oral (F) 99.6 F 12/01/2011 [place] [facility] Diastolic (mm Hg) 106 11/30/2011 [facility] edical Center Heart Rate 96 11/30/2011 [facility] Medica l Center Respitory Rate 18 11/30/2011 [facility] Medi tawnya Center Systolic (mm Hg) 187 11/30/2011 [facility] dical Center Temperature Oral (F) 99.8 F 11/30/2011 [facility] Respitory Rate 20 11/30/2011 [facility] Medi tawnya Center Systolic (mm Hg) 178 11/30/2011 [facility] dical Center Diastolic (mm Hg) 104 11/30/2011 [facility] edical Center Heart Rate 102 11/30/2011 [facility] Temperature Oral (F) 99.8 F 11/30/2011 [facility] Weight 56.818 11/29/2011 [place] [facility] Height 157.48 cm 11/29/2011 [place] [facility] Weight 57.273 11/28/2011 [place] [facility] Weight 66.364 09/18/2011 [place] [facility] Height 154.94 cm 09/18/2011 [facility] Medica l Center Heart Rate 75 09/09/2011 [facility] Medica l Center Systolic (mm Hg) 115 09/09/2011 [facility] dical Center Diastolic (mm Hg) 69 09/09/2011 [facility] edical Center Respitory Rate 18 09/09/2011 [facility] Center Temperature Oral (F) 97.5 F 09/09/2011 [place] [facility] Diastolic (mm Hg) 68 09/09/2011 [facility] edical Center Heart Rate 66 09/09/2011 [facility] Medica l Center Temperature Oral (F) 98.6 F 09/09/2011 [place] [facility] Respitory Rate 20 09/09/2011 [place] [facility] Systolic (mm Hg) 118 09/09/2011 [facility] dical Center Respitory Rate 20 09/09/2011 [place] [facility] Diastolic (mm Hg) 71 09/09/2011 [facility] edical Center Systolic (mm Hg) 123 09/09/2011 [facility] dical Center Heart Rate 67 09/09/2011 [facility] Temperature Oral (F) 98.7 F 09/09/2011 [facility] Weight 68.182 09/01/2011 [facility] Height 154.94 cm 09/01/2011 [facility] Height 154.94 cm 09/01/2011 [facility] Medica l Center Weight 68.182 09/01/2011 [facility] Medica l Center Respitory Rate 20 08/23/2011 [facility] Heart Rate 93 08/23/2011 [facility] Systolic (mm Hg) 136 08/23/2011 [facility] dical Center Diastolic (mm Hg) 82 08/23/2011 [facility] edical Center Temperature Oral (F) 97.7 F 08/23/2011 [facility] Heart Rate 101 08/23/2011 [facility] Temperature Oral (F) 98.2 F 08/23/2011 [facility] Diastolic (mm Hg) 105 08/23/2011 [facility] edical Center Systolic (mm Hg) 172 08/23/2011 [facility] dical Center Respitory Rate 20 08/23/2011 [facility] Center Systolic (mm Hg) 158 08/23/2011 [facility] dical Center Diastolic (mm Hg) 98 08/23/2011 [facility] edical Center Temperature Oral (F) 98.3 F 08/23/2011 [facility] Heart Rate 95 08/23/2011 [facility] Medica l Center Respitory Rate 20 08/22/2011 [facility] Center Height 154.94 cm 08/20/2011 [facility] Weight 67.273 08/20/2011 [facility] Height 154.94 cm 08/19/2011 [facility] Medica l Center Weight 67.273 08/19/2011 [facility] l Center Encounters Location Location Encounter Encounter Reason Attending ADM DC Stat us Source Details Type Number For Provider Date Date Visit [facility] Inpatient [id number] DKNaun HENRIQUEZ 08/22 Active Medical 0 AHMED /2011 [facility] Inpatient [id number] [place] 08/31 09/08 Active Medical 1 ABSCESS/ OMIDVAR /2011 [facility] CEMIA Center [facility] Emergency [id number] CASA 09/17 09/[address] [facility] Medical 2 BUBLEWICZ /2011 ed [facility] OU [id number] N/V OSMAR 11/27 11/29 Active Medical 3 INABILIT GUNNAR /2011 [facility] PO Emergency [id number] HUNG HERNANDEZ 03/14 03/[address] [facility] ed [facility] Emergency [id number] ABD PAIN OMAIRA 04/14 04/[address] [facility] 7 MARRY /2012 [facility] EC [id number] Atul 06/26 06/26 [facility] Emergency 8 Ostermayer /2014 [facility] Inpatient [id number] Joe 06/10 06/15 Vin 9 Franck /2015 [facility] Inpatient [id number] Danaeja Cha 07/24 07/30 Vin 0 /2016 [facility] Preadmit [id number] NAUSEA, CAAS Active M [facility] 8 VOMITING WOLLNER [facility] Outpatient [id number] GASTROPE NON Canc [facility] Medical 6 RIS PHYSICIAN [facility] Outpatient [id number] GASTROPE NON Canc [facility] Medical 5 [facility] PHYSICIAN [facility] Procedures Procedure Code Date Perfomer Comments Source Emergency 13001 04/15/2013 [facility] department visit for the evaluation and management of a patient, which requires these 3 kamara components within the constraints imposed by the urgency of the patient's clinical condition and/or mental status: A comprehensive history; A comprehensi Injection or 99.29 04/15/2013 [facility] Infusion of Other Therapeutic or Prophylactic Substance Intravenous 73911 04/15/2013 [facility] infusion, hydration; each additional hour (List separately in addition to code for primary procedure) Therapeutic, 18678 04/15/2013 [facility] prophylactic, or diagnostic injection (specify substance or drug); each additional sequential intravenous push of a new substance/drug (List separately in addition to code for primary procedure) Therapeutic, 30655 04/15/2013 [facility] prophylactic, or diagnostic injection (specify substance or drug); intravenous push, single or initial substance/drug section [id number] [facility] Tubal ligation [id number] [facility] Assessment and Plan Assessment and Plan Date Source Extracted from:Title: Hospitalist Progress Note 07/30/2016 [facility] Author: Luna Jamison MD [place] Date: 07/30/16 Assessment/Plan 1.Acute on chronic kidney [...] que stions. We can be reached at [phone]. Extracted from:Title: History and Physical Author: Danae [...] Weight 92.273, kg, Start date: 07/24/16 9:00:00 DRUM ATTENDANT, Duration: 30 day, Stop date: 08/22/16 9:00:00 DRUM ATTENDANT atorvastatin, 40 mg, 1 tab, Route: PO , Drug form: TAB, Bedtime, Dosing Weight 92.273, kg, Start date: 07/24/16 21:00:00 DRUM ATTENDANT, Duration: 30 day, Stop date: 08/22/16 21:00:00 DRUM ATTENDANT buPROPion, 150 mg, 1 tab, Route: PO, Drug form: ERTAB, Daily, Dosing Weight 92.273, kg, Start date: 07/24/16 9:00:00 DRUM ATTENDANT, Duration: 30 day, Stop date: 08/22/16 9:00:00 DRUM ATTENDANT Dextrose 50% Syringe, 25 gm, 50 mL, R oute: IVP, Drug Form: INJ, Dosing Weight 92.273, kg, PRN, PRN Blood Glucose Results, Start date: 07/24/16 2:40:00 DRUM ATTENDANT, Duration: 30 day, Stop date: 08/23/16 2:39:00 DRUM ATTENDANT Dextrose 50% Syringe, 12.5 gm, 25 mL, Route: IVP, Drug Form: INJ, Dosing Weight 92.273, kg, PRN, PRN Blood Glucose Results, Start date: 07/24/16 2:40:00 DRUM ATTENDANT, Duration: 30 day, Stop date: 08/23/16 2:39:00 DRUM ATTENDANT Depakote ER 500 mg oral tablet, exten ded release, 500 mg, 1 tab, Route: PO, Drug form: ERTAB, QAM, Dosing Weight 92.273, kg, Start date: 07/24/16 9:00:00 DRUM ATTENDANT, Duration: 30 day, Stop date: 08/22/16 9:00:00 DRUM ATTENDANT docusate, 100 mg, 1 cap, Route: PO, D rug form: CAP, BID, Dosing Weight 92.273, kg, PRN Constipation, Start date: 07/24/16 1:20:00 DRUM ATTENDANT, Duration: 30 day, Stop date: 08/23/16 1:19:00 DRUM ATTENDANT Lasix, 40 mg, 4 mL, Route: IVP, Drug form: INJ, Q12H, Dosing Weight 92.273, kg, Start date: 07/24/16 9:00:00 DRUM ATTENDANT, Duration: 30 day, Stop date: 08/22/16 21:00:00 DRUM ATTENDANT gabapentin 300 mg oral capsule, 1 cap , Route: PO, Drug form: CAP, BID, Dosing Weight 92.273, kg, Start date: 07/24/16 9:00:00 DRUM ATTENDANT, Duration: 30 day, Stop date: 08/22/16 17:00:00 DRUM ATTENDANT glucagon, 1 mg, Route: IM, Drug form: PDR/INJ, PRN, Dosing Weight 92.273, kg, PRN Blood Glucose Results, Start date: 07/24/16 2:40:00 DRUM ATTENDANT, Duration: 30 day, Stop date: 08/23/16 2:39:00 DRUM ATTENDANT hydrALAZINE 100 mg oral tablet, 100 m g, 1 tab, Route: PO, Drug form: TAB, BID, Dosing Weight 92.273, kg, Start date: 07/24/16 9:00:00 DRUM ATTENDANT, Duration: 30 day, Stop date: 08/22/16 17:00:00 DRUM ATTENDANT insulin aspart, 4 unit, 0.04 mL, Rout e: SUB-Q, Drug form: SOLN, TID-Before Meals, Dosing Weight 92.273, kg, PRN Blood Glucose Results, Start date: 07/24/16 2:40:00 DRUM ATTENDANT, Duration: 30 day, Stop date: 08/23/16 2:39:00 DRUM ATTENDANT insulin aspart, 5 unit, 0.05 mL, Rout e: SUB-Q, Drug form: SOLN, TID-Before Meals, Dosing Weight 92.273, kg, PRN Blood Glucose Results, Start date: 07/24/16 2:40:00 DRUM ATTENDANT, Duration: 30 day, Stop date: 08/23/16 2:39:00 DRUM ATTENDANT insulin aspart, 2 unit, 0.02 mL, Rout e: SUB-Q, Drug form: SOLN, TID-Before Meals, Dosing Weight 92.273, kg, PRN Blood Glucose Results, Start date: 07/24/16 2:40:00 DRUM ATTENDANT, Duration: 30 day, Stop date: 08/23/16 2:39:00 DRUM ATTENDANT insulin aspart, 3 unit, 0.03 mL, Rout e: SUB-Q, Drug form: SOLN, TID-Before Meals, Dosing Weight 92.273, kg, PRN Blood Glucose Results, Start date: 07/24/16 2:40:00 DRUM ATTENDANT, Duration: 30 day, Stop date: 08/23/16 2:39:00 DRUM ATTENDANT insulin aspart, 1 unit, 0.01 mL, Rout e: SUB-Q, Drug form: SOLN, TID-Before Meals, Dosing Weight 92.273, kg, PRN Blood Glucose Results, Start date: 07/24/16 2:40:00 DRUM ATTENDANT, Duration: 30 day, Stop date: 08/23/16 2:39:00 DRUM ATTENDANT insulin aspart, 2 unit, 0.02 mL, Rout e: SUB-Q, Drug form: SOLN, TID-Before Meals, Dosing Weight 92.273, kg, Start date: 07/24/16 7:30:00 DRUM ATTENDANT, Duration: 30 day, Stop date: 08/22/16 16:30:00 DRUM ATTENDANT Lantus 100 units/mL, 40 unit, 0.4 mL, Route: SUB-Q, Drug form: SOLN, Daily, Dosing Weight 92.273, kg, Start date: 07/24/16 9:00:00 DRUM ATTENDANT, Duration: 30 day, Stop date: 08/22/16 9:00:00 DRUM ATTENDANT metoprolol extended release, 100 mg, 2 tab, Route: PO, Drug form: ERTAB, Daily, Start date: 07/24/16 9:00:00 DRUM ATTENDANT, Duration: 30 day, Stop date: 08/22/16 9:00:00 DRUM ATTENDANT ondansetron, 4 mg, 2 mL, Route: IVP, Drug form: INJ, Q6H, Dosing Weight 92.273, kg, PRN Nausea and Vomiting, Start date: 07/24/16 1:20:00 DRUM ATTENDANT, Duration: 30 day, Stop date: 08/23/16 1:19:00 DRUM ATTENDANT Protonix, 40 mg, 1 tab, Route: PO, Dr ug form: ECTAB, Daily, Dosing Weight 92.273, kg, Start date: 07/24/16 9:00:00 DRUM ATTENDANT, Duration: 30 day, Stop date: 08/22/16 9:00:00 DRUM ATTENDANT Zoloft, 200 mg, 2 tab, Route: PO, Ezio g form: TAB, Daily, Dosing Weight 92.273, kg, Start date: 07/24/16 9:00:00 DRUM ATTENDANT, Duration: 30 day, Stop date: 08/22/16 9:00:00 DRUM ATTENDANT Up ad monique Ambulation Basic Metabolic Panel [...] Acute Care Floor) Troponin-I Troponin-T Vital Signs [facility] hospitalist is primary. Please call [phone] for additional questions. Prophylaxis TEDs Disposition DC when medically stable. Extracted from:Title: Team A Discharge Summary 06/15/2016 [facility] Medical Author: Gina Gomes MD Center [...] management Follow Up Appts: Follow Up With OR Internal Medicine , Call for appointment, faby [...] All Problems (Selected) Hypertension / SNOMED CT 13173584 / Confirmed Hypokalemia / SNOMED CT 63350439 / Confirmed Hypomagnesemia / ICD-9-CM 275.2 / Confirmed MRSA / SNOMED CT 843306348 / Confirmed Problem added by Discern Expert. 09/01/11 - Elbow wound Nausea and vomiting / SNOMED CT 15747727 / Confirmed Objective Meds Scheduled Meds (15):aspirin [...] Extracted from:Title: Infection Control Isolation Alert Author: [place] Date: 06/12/16 ISOLATION ALERT This [...] que stions. We can be reached at [phone]. Extracted from:Title: Medicine Team A History and Physical Author: Silverio Robles MD Date: 06/10/16 Medicine Team A History and Physical Note: Patient Room: ED01 - , [facility] CATHI ROWLEY 35y (: 1980) F Attending: Joe Juárez MD [facility] ne: Service: Nephrology CHIEF COMPLAINT: Shortness [...] upper and lower extremities strength 5/5 bilaterally, yield analyst strength 5/5, pitting pedal edema bilaterally 2+ [...] History Date Source Social History TypeResponse 06/11/2016 [facility] Substance Abuse Use: None. 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
--- OUTSIDE RECORDS SUMMARY | 2020-06-10 06:53 | XMS REPORT | Summary of Care ---
:1980 Author Organization [facility] - Health Address [address] [place] [address] Care Team Providers Name Role Phone HernandoVivien martin Elastic Cutter Joaquin Valdez MD Primary Care Provider Encounter Details Date Type Department Care Team Description 04/02/2020 Orders Only [facility] Doctor Unassigned, No [address] [facility] [place] [address] [address] [place] [id number] Allergies Active Allergy Reactions Severity Noted Date [...] comments 12/31/2011 Ketorolac Tromethamine Swelling High 12/13/2016 carlos nam documented as of this encounter (statuses as of 04/02/2020) Medications Medication Sig Dispensed Refills Start Date [...] mouth 2 (two) mg tablet times daily. metoprolol tartrate 50 Take 50 mg by 0 Active mg tablet mouth daily. artificial Place 1 Drop in 15 mL 5 07/29/2017 Ac tive tears,hypromellose, left eye 4 (four) (ISOPTO TEARS) 0.5 % times daily as ophthalmic drops needed for Dry eyes. albuterol 90 Inhale 2 Puffs 8.5 g 0 10/24/2017 A ctive mcg/actuation inhaler every 4 (four) hours as needed for Wheezing or Shortness of Breath. folic acid/vit B Take 800 mg by 0 Active complex and C mouth daily. (DIALYVITE 800 ORAL) diphenhydrAMINE 50 mg Take 1 tablet by 20 tablet 0 01/21/2018 Active tablet mouth every 6 (six) hours as needed for Allergies. linagliptin (TRADJENTA) Take by mouth. 0 Active [...] Take 5 mg by 0 Active mouth. traZODone 100 mg tablet Take 100 mg by 0 02/01/2020 Active mouth before meals and at bedtime. cetirizine Take 1 tablet by 0 Ac tive HCl/pseudoephedrine mouth daily. 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 07/22/2017 Overview: Added automatically from request for jose reynaldo [id number] Neovascular glaucoma, left eye 07/08/2017 Increased intraocular pressure 07/08/2017 Fall 04/02/2017 Pneumonia 03/31/2017 Diabetes mellitus 03/25/2017 Overview: Added automatically from request for jose reynaldo [id number] Pseudotumor cerebri 03/15/2017 Peripheral neuropathy 01/03/2017 Obesity [...] as of this encounter (statuses as of 04/02/2020) Resolved Problems Problem Noted Date Resolved Date Diabetes, type 1.5, uncontrolled, managed as type 2 04/29/20 15 09/17/2015 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, 0 10/20/2012 04/29/2015 uncontrolled Overview: ICD10 Diagnosis Term Clam Grader Utility documented as of this encounter (statuses as of 04/02/2020) Immunizations Name Administration Dates Next Due Influenza Virus Vaccine Quad IM 3+ YRS 06/22/2017, 6, 10/28/2015 documented as of this encounter Social History Tobacco Use Types Packs/Day Years Used Date Current Every Day Smoker Cigarettes 0.3 Smokeless Tobacco: Never Used Comments: quit 09-19-18 Alcohol Use Drinks/Week oz/Week Comments No 0 Standard drinks or equivalent 0.0 Sex Assigned at Date Recorded Not on file COVID-19 Exposure Response Date Recorded In the last month, have you been in contact with No / Unsure 03/18/2020 2:48 PM CDT someone who was confirmed or suspected to have Coronavirus / COVID-19? documented as of this encounter Last Filed Vital Signs Not on filedocumented in this encounter Plan of Treatment Date Type Specialty Care Team Description 04/02/2020 Initial Obstetrics & Gynecology David Bhat MD Visit [address] [place] [address] Dr. [address] [place] [phone] 04/05/2020 Office Visit Cardiology Oz Olivares MD [address] [place] [phone] 05/01/2020 Office Visit Endocrinology Diabetes & Tee Gonzalez MD Metabolism [address] [place] [address] Health Maintenance Due Date Last Done Comments VARICELLA VACCINES (1 of 2 - 10/18/1983 2-dose childhood series) PNEUMOCOCCAL 0-64 YEARS COMBINED 1988 SERIES (1 of 3 - PCV13) DTaP,Tdap,and Td Vaccines (1 - 2001 Tdap) HgA1C 01/04/2018 07/07/2017, 06/21/2017, 03/31/2017, Additional history exists PAP SMEAR 05/03/2018 05/03/2015, 09/02/2010, 04/30/2009, Additional history exists LDL-C 07/07/2018 07/07/2017, 06/23/2012, 06/16/2011, Additional history exists EYE EXAM 02/18/2020 02/17/2019, 05/02/2018, 04/06/2018, Additional history exists INFLUENZA VACCINE (#1) 2020 06/22/2017, 04/02/2016, 10/28/2015, Additional history exists CREATININE (SERUM) 04/24/2020 04/24/2019, 02/22/2019, 01/14/2019, Additional history exists Depression Screening 02/05/2021 02/06/2020 FOOT EXAM 02/05/2021 02/06/2020, 02/06/2020 documented as of this encounter Implants Implanted Type Area Life Enrichment Specialist Device Shelf Model / Identifier Expiration Serial / Date Lot Bio Eye Implant, Integrated Orbital Impl ants Ioi 18mm Perforated #[id number] - [id number] ORBITAL Left: INTEGRATED 09/18/2018 [id number] / Implanted: Qty: 1 on 01/17/2018 by Latrell Mcknight MD at [facility] Eye ORBITAL IMPLANTS [id number] / [id number] documented as of this encounter Procedures Procedure Name Priority Date/Time Associated Diagnosis Comme nts CONSENT/REFUSAL FOR Routine 04/02/2020 12:09 AM CDT DIAGNOSIS AND TREATMENT CONSENT/REFUSAL FOR Routine 04/02/2020 12:09 AM CDT DIAGNOSIS AND TREATMENT documented in this encounter Results Not on filedocumented in this encounter Insurance Payer Benefit Plan / Subscriber ID Effective Dates Phone Addre ss Type Group MEDICARE MEDICARE PART [id number] 2014-Presen [phone] Medicare A & B t 2 [id number] DHEERAJ GEE [phone] [facility] MEDICAID OF [id number] 2020-Presen [phone] [address] Medicaid [place] t 0 [id number] [place] [address] documented as of this encounter Advance Directives Name Relationship Healthcare Agent Communication Relationship Jennifer Neptali Mother Health Care Agent [place] Found Sibling First [facility] Care [phone] Agent ([place]) ([place])
--- OUTSIDE RECORDS SUMMARY | 2020-06-10 06:53 | XMS REPORT | Summary of Care ---
:1980 Author Organization [facility] Address [address] [place] [address] Care Team Providers Name Role Phone Vivien Morin DO Machine Turner Joaquin Valdez MD Primary Care Provider Reason for Referral Radiology Services (Routine) Status Reason Specialty Diagnoses / Referred By Referred To Procedures Contact Contact New Request Diagnostic Diagnoses Breast cancer screening by mammogram Diclemente, Radiology Procedures BI SCREENING MAMMOGRAM BILATERAL MD Y[address] [place] [address] Reason for Visit Reason Comments Orders Annual mammogram Encounter Details Date Type Department Care Team Description 03/16/2020 Telephone [facility] Women's Ashish Marie ( Annual Healthcare- Levi Cotton MD mammogram) [address] [place] [address], [address] [place] [address] [phone] Allergies Active Allergy Reactions Severity Noted Date [...] as of this encounter (statuses as of 03/16/2020) Medications Medication Sig Dispensed Refills Start Date [...] as of this encounter (statuses as of 03/16/2020) Active Problems Problem Noted Date Malfunction of arteriovenous dialysis fistula, initial encounter 11/21/2018 Overview: Added automatically from request for jose reynaldo [id number] Candidiasis of vulva and vagina 08/08/2018 Screening for breast cancer 08/08/2018 Pyogenic granuloma of conjunctiva, right 04/06/2018 Overview: Added automatically from request for jose reynaldo [id number] 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 Increased intraocular pressure 07/08/2017 Fall 04/02/2017 Pneumonia 03/31/2017 Diabetes mellitus 03/25/2017 Overview: Added automatically from request for jose reynaldo [id number] Pseudotumor cerebri 03/15/2017 Peripheral neuropathy 01/03/2017 Obesity [...] as of this encounter (statuses as of 03/16/2020) Resolved Problems Problem Noted Date Resolved Date Diabetes, type 1.5, uncontrolled, managed as type 2 04/29/20 15 09/17/2015 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, 0 10/20/2012 04/29/2015 uncontrolled Overview: ICD10 Diagnosis Term Mononitrotoluene Operator Utility documented as of this encounter (statuses as of 03/16/2020) Immunizations Name Administration Dates Next Due Influenza Virus Vaccine Quad IM 3+ YRS 06/22/2017, 6, 10/28/2015 documented as of this encounter Social History Tobacco Use Types Packs/Day Years Used Date Current Every Day Smoker Cigarettes 0.3 Smokeless Tobacco: Never Used Comments: quit 4-1-19 Alcohol Use Drinks/Week oz/Week Comments No 0 Standard drinks or equivalent 0.0 Sex Assigned at Date Recorded Not on file documented as of this encounter Last Filed Vital Signs Not on filedocumented in this encounter Miscellaneous Notes Telephone Encounter - Yury Marie MD - 03/16/2020 11:05 AM CDTOrdered. Telephone Encounter - Stefania Guillen - 03/16/2020 8:54 AM CDTRequesting orders for patient 12-month follow-up on her BILATERAL breast. Please place order for: SCREENING MAMMOGRAM-BILATERAL If patient is planning on returning to [facility] please place order for mammogram. Once orders are placed, we will call and schedule patient documented in this encounter Plan of Treatment Date Type Specialty Care Team Description 04/05/2020 Office Visit Cardiology Oz Olivares MD [address] [place] [phone] 05/01/2020 Office Visit Endocrinology Diabetes & Gonzalez, Tee hager MD Metabolism [address] [place] [address] [phone] Name Type Priority Associated Diagnoses Order S chedule BI SCREENING MAMMOGRAM IMAGING Routine Breast cancer scre ening Expected: 03/16/2020, BILATERAL by mammogram Expires: 2020 Health Maintenance Due Date Last Done Comments [...] of this encounter Implants Implanted Type Area Geospatial Information Technologist Device Shelf Model / Identifier Expiration Serial / Date Lot Bio Eye Implant, Integrated Orbital Impl ants Ioi 18mm Perforated #[id number] - [id number] ORBITAL Left: INTEGRATED 09/18/2018 [id number] / Implanted: Qty: 1 on 01/17/2018 by Latrell Mcknight MD at [facility] Eye ORBITAL IMPLANTS [id number] / [id number] documented as of this encounter Results Not on filedocumented in this encounter Visit Diagnoses Diagnosis Breast cancer screening by mammogram - P lisbethary documented in this encounter Insurance Payer Benefit Plan / Subscriber ID Effective Dates Phone Addre ss Type Group MEDICARE MEDICARE PART [id number] 2014-Pres[place] [phone] Medicare A & B t 2 [id number] RICH BRENTWOODDHEERAJ [phone] [facility] MEDICAID OF [id number] 2020-Presen [phone] [address] Medicaid [place] t 0 [id number] [place] [address] documented as of this encounter Advance Directives Name Relationship Healthcare Agent Communication Relationship Jennifer Gunderson Mother Health Care Agent [place] Found Sibling First [facility] Health Care Agent (Mobile)
--- OUTSIDE RECORDS SUMMARY | 2020-06-10 06:53 | XMS REPORT | Continuity of Care Document ---
:[address] [facility] [place], [place] t Address [address] [place] [address] Care Team Providers Name Role Phone [facility], Echo Room 1 - Attending Clinician Unavailable Marshall BURNS, K.H. Attending Clinician Chivo Attending Clinician Unavailable Chivo [...] NEW Diagnosis Active 2018-07-26 Mem oria EVALUATION - 09:39:00 l NEW 00:00: [place] EVALUATION 00 Active 07/12/2018 [facility] Liver Liver Disease Active [facility] failure, failure, 7[facility] acute acute 00:00: [address] SANJUANA (acute SANJUANA (acute Disease Active [facility] kidney kidney 7-16 [facility] injury) injury) 00:00: Medical 00 Center CKD CKD Disease Active [facility] (chronic (chronic 7-16 [facility] - kidney kidney 00:00: Medical disease) disease) 00 Center Acute Acute Disease Active [facility] encephalop encephalop 7-16 Pati kes - athy athy 00:00: Medical 00 Center Ulcer of Ulcer of Disease [facility] toe [facility] toe of [facility] left foot left foot 00:00: Medi tawnya 00 Center Peripheral Peripheral Disease Active [facility] neuropathy neuropathy 7-16 Pati kes - 00:00: Medical 00 [place] Hyperglyce Hyperglyce Disease Active [facility]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 00:00: Medical diabetes diabetes 00 Center mellitus mellitus Gastropare Gastropare Disease Active [facility] sis due to sis due to 716 Pati kes - DM DM 00:00: Medical 00 [place] Cyclic Cyclic Disease Active [facility] vomiting vomiting 7-16 [facility] - syndrome syndrome 00:00: Medica l 00 Center Anxiety Anxiety Disease Active [facility] 7[facility]16 [facility] - 00:00: Medical 00 [place] Bipolar Bipolar Disease Active [facility] disorder disorder -16 [facility] - 00:00: Medical 00 [place] Hypertensi Hypertensi Disease Active [facility] ve ve 7-16 [facility] - emergency emergency 00:00: [facility] 00 Center CONGESTION Diagnosis Active 2016-07-24 Memoria AMD 2- 01:49:00 l DIARRHEA 00:00: [place] CONGESTION 00 AMD DIARRHEA Active 07/23/2016 [facility] ACUTE RESP Diagnosis Active 2016-09-09 Memoria FAILURE 2- 09:11:00 l ACUTE 00:00: Vin RESP 00 FAILURE Active 07/23/2016 [facility] SOB/SWELLI Diagnosis Active 2015-062016-06-10 Memoria NG 2- 15:48:00 l 00:00: [place] SOB/SWELLI 00 NG Active 6 [facility] CHF/RENAL Diagnosis Active 2015-062016-06-24 Memoria DISEASE - 15:35:00 l 00:00: [place] CHF/RENAL 00 DISEASE Active 06/10/2016 [facility] ABDOMINAL Diagnosis Active 2014-06-26 Memoria PAIN, 1- 05:44:00 l SEIZURES 00:00: [place] ABDOMINAL 00 PAIN, SEIZURES Active 06/26/2013 [facility] ABD PAIN Diagnosis Active 2012-062013-04-19 M emoria 0- 21:51:00 l ABD PAIN 19:00: Jake n 00 Active 04/14/2013 [facility] GASTROPERI Diagnosis Active 2012-09-13 Memoria SIS 2- 15:17:00 l 00:00: [place] GASTROPERI 00 SIS Active 08/02/2012 [facility] ABDOMINAL Diagnosis Active 2012-03-14 Memoria PAIN 03-14 16:56:00 l 14:00: [place] ABDOMINAL 00 PAIN Active 03/14/2012 [facility] NAUSEA, Diagnosis Active 2012-03-14 Me moria VOMITING 03-14 13:25:00 l NAUSEA, 08:00: [place] VOMITING 00 Active 03/14/2012 [place] VOMITTING Diagnosis Active 2011-11-28 Memoria 11-27 16:28:00 l 00:00: [place] VOMITTING 00 Active 11/28/2011 [facility] N/V Diagnosis Active 2011-12-08 Mem oria INABILITY 11-27 11:14:00 l TO N/V 00:00: [place] TOLERATE INABILITY 00 PO TO TOLERATE PO Active 2 [facility] VOMITTING, Diagnosis Active 2011-09-18 Memoria HIGH BLOOD 09-17 09:45:00 l SUGAR 00:00: [place] VOMITTING, 00 HIGH BLOOD SUGAR Active 09/18/2011 [facility] MRSA Problem Active 2012-03-16 Memor ia 3- 09:11:30 l MRSA 00:00: Vin 00 Active 09/01/2011 Problem 03/16/2012 - Elbow [id number] emily added by Discern Expert. [facility], [place] Methicilli Problem Active 2016-08-02 M emoria n 3-13 02:46:22 l resistant 00:00: [place] Staphyloco Methicilli 00 ccus n aureus resistant (organism) Staphyloco ccus aureus (organism) Active 09/01/2011 Problem 08/02/2016 09/01/11 - Elbow woundProbl em added by Discern Expert. [facility] ELBOW Diagnosis Active 2011-09-10 Mem oria ABSCESS/HY - 16:26:00 l PERGLYCEMI ELBOW 00:00: Nidia nn A ABSCESS/HY 00 PERGLYCEMI A Active 08/31/2011 [facility] VOMITING, Diagnosis Active 2011-09-01 Memoria BLOOD 08-30 03:19:00 l SUGAR 00:00: Vin READINGS VOMITING, 00 HIGH BLOOD SUGAR READINGS HIGH Active 08/31/2011 [facility] Hypokalemi Problem Active 2012-03-16 M emoria a 08-22 09:11:30 l 00:00: [place] Hypokalemi 00 a Active 08/23/2011 Problem 03/16/2012 [facility] VOMITING Diagnosis Active 2011-08-19 M emoria 16:21:00 l VOMITING 00:00: Jake n 00 Active 08/19/2011 [facility] DKA Diagnosis Active 2011-08-24 Mem oria 11:27:00 l DKA 00:00: [place] 00 Active 08/19/2011 [facility] Final: Problem 2016-08-02 Memor ia Acute 02:46:22 l respirator Final: Herm naeem y failure, Acute unspecifie respirator d whether y failure, with unspecifie hypoxia or d whether hypercapni with a hypoxia or hypercapni a 08/02/2016 [facility] Hypoglycem Problem Inactiv 2013-04-22 Memoria ia e 04:46:33 l (disorder) Jake n Hypoglycem ia (disorder) Inactive Problem 04/22/2013 [facility] Hypoglycem Problem Inactiv 2012-03-16 Memoria ia e 09:11:30 l Vin Hypoglycem ia Inactive Problem 03/16/2012 [facility] Diabetes Problem Resolve 2016-08-02 Me moria mellitus d 02:46:22 l (disorder) Diabetes He rmann mellitus (disorder) Resolved Problem 08/02/2016 [facility] Gastropare Problem Resolve 2016-08-02 Memoria sis d 02:46:22 l (disorder) Jake gonzalez Gastropare sis (disorder) Resolved Problem 08/02/2016 [facility] Hypertensi Problem Resolve 2016-08-02 Memoria ve d 02:46:22 l disorder, Vin systemic Hypertensi arterial ve (disorder) disorder, systemic arterial (disorder) Resolved Problem 08/02/2016 [facility] Psychiatri Problem Resolve 2016-08-02 Memoria c d 02:46:22 l behavioral Jake n disability Psychiatri (finding) c behavioral disability (finding) Resolved Problem 08/02/2016 [facility] Seizure Problem Resolve 2016-08-02 Mem oria (finding) d 02:46:22 l Seizure [place] (finding) Resolved Problem 08/02/2016 [facility] Hypomagnes Problem Active 2013-04-22 M emoria emia 04:46:33 l Vin Hypomagnes emia Active Problem 04/22/2013 [facility] Hypertensi Problem Active 2012-03-16 M emoria on 09:11:30 l Vin Hypertensi on Active Problem 2 [facility] Nausea and Problem Active 2012-03-16 M emoria vomiting 09:11:30 l Nausea Vin and vomiting Active Problem 03/16/2012 [facility] DMI Diagnosis Active 2011-08-24 Mem oria KETOACD 11:27:00 l UNCONTROLD DMI Jake n KETOACD UNCONTROLD Active [facility] OTHER Diagnosis Active 2011-09-10 Mem oria GENERAL 16:26:00 l SYMPTOMS OTHER Vin GENERAL SYMPTOMS Active [facility] HEART Diagnosis Active 2016-06-24 Mem oria FAILURE, 15:35:00 l UNSPECIFIE HEART Nidia nn D FAILURE, UNSPECIFIE D Active [facility] ACUTE Diagnosis Active 2016-09-09 Mem oria RESPIRATOR 09:11:00 l Y FAILURE, ACUTE Nidia nn UNSP W RESPIRATOR HYPOXI Y FAILURE, UNSP W HYPOXI Active [facility] Discharge Problem 2014-06-28 2014-06-28 Memoria Diagnosis: 1- 16:34:37 16:34:37 l Gastropare 06:00: Jake gonzalez sis Discharge 00 Diagnosis: Gastropare sis 06/26/2014 06/28/2014 [facility] History of Past Illness Condition Condition Condition Status Onset Resolution Last Treating Co mments Source Name Details Category Date Date Treatment Clinician Date Nausea and Problem Resolve 2016-08-02 2016-08-02 Memoria vomiting d 6-10 02:46:22 02:46:22 l (disorder) Nausea 00:00: Herm naeem and 00 vomiting (disorder) Resolved 11/29/2011 Problem 08/02/2016 [facility] Hypokalemi Problem Resolve 2016-08-02 2016-08-02 Memoria a d 3-04 02:46:22 02:46:22 l (disorder) 00:00: Jake n Hypokalemi 00 a (disorder) Resolved 08/23/2011 Problem 08/02/2016 [facility] Disorder Problem Resolve 2016-08-02 2016-08-02 Memoria of d 3-04 02:46:22 02:46:22 l magnesium Disorder 00:00: Her braden metabolism of 00 (disorder) magnesium metabolism (disorder) Resolved 08/23/2011 Problem 08/02/2016 [facility] Hyperglyce Problem Resolve 2016-08-02 2016-08-02 Memoria maryam d 3- 02:46:22 02:46:22 l (disorder) 00:00: Jake n Hyperglyce 00 maryam (disorder) Resolved 08/20/2011 Problem 08/02/2016 [facility] Ketoacidos Problem Resolve 2016-08-02 2016-08-02 Memoria is in d 2- 02:46:22 02:46:22 l diabetes 00:00: Vin mellitus Ketoacidos 00 (disorder) is in diabetes mellitus (disorder) Resolved 08/19/2011 Problem 08/02/2016 [facility] DKA Problem Resolve 2013-04-22 2013-04-22 Memoria (diabetic d 2- 04:46:33 04:46:33 l ketoacidos DKA 00:00: Jake n es) (diabetic 00 ketoacidos es) Resolved 08/19/2011 Problem 04/22/2013 [facility] Hyperglyce Problem Inactiv 2012-03-16 2012-03-16 Memoria maryam e 3- 09:11:30 09:11:30 l 00:00: [place] Hyperglyce 00 maryam Inactive 08/20/2011 Problem 03/16/2012 [facility] Allergies, Adverse Reactions, Alerts Allergy Allergy Status [...] Comments) 01-03 [facility]: Medical 00 [place] codeine codeine Active Memoria l [place] penicill penicill Active Memori a ins ins l [place] Prolex Prolex Active Memoria DM DM l [place] Ambien Ambien Active Memoria l [place] lisinopr lisinopr Active Memori a il il l Vin Social History Social Habit Start Date Stop Date Quantity Comments Source Sex Assigned At [facility] Cigarettes smoked 2017-12-17 2017-12-17 [facility] - current (pack per 00:00:00 00:00:00 Medical Center day) - Reported Cigarette 2017-12-17 2017-12-17 [facility] - pack-years 00:00:00 00:00:00 [facility] Alcohol intake 2017-12-17 2017[facility]12-17 [facility] non-drinker of Medical Ce nter alcohol (finding) Tobacco Comment 2017-01-03 2017-01-03 [facility] 00:00:00 she stopped [address] month ago. History of tobacco 2016-12-[address] [facility] use [facility] Center Social History 2016-06-11 2016-06-11 [facility] Claudia lainez 04:38:12 04:38:12 Smoking Status Start Date Stop Date Source Former smoker 2017-12-17 00:00:00 2017-12-17 00:00:[address] [facility] Medications Ordered Filled Start Stop Current Ordering Indication Dosage Frequency Signature Comments Components Source Medication Medication Date Date Medication? Clinician (SIG) Name Name jenelleproex 2017 Yes depression 500mg QD Take [address] [facility] [facility] (DEPAKOTE) 7-20 associated mg by Pati kes - 500 MG EC 15:20: with mouth Medical tablet 59 bipolar daily. Center disorder ondansetron 2017- Yes 4mg Take [address] (ZOFRAN) 4 7-20 by mouth [facility] - MG tablet 15:20: every 6 Medic al 59 (six) Center hours as needed for Nausea. traMADol 2017 Yes 50mg Take [address] [facility] (ULTRAM) 50 7-20 by mouth Luke s - mg tablet 15:20: every 6 Medic al 59 (six) Center hours as needed for Pain. pantoprazol 2017 Yes 40mg QD Take [address] [facility] e 7-20 by mouth [facility] - (PROTONIX) 15:20: daily. Medic al 40 MG 59 Center tablet amLODIPine Yes 10mg QD Take [address] (NORVASC) 5 7-20 by mouth Luke s - MG tablet 15:20: daily. Medica l 59 Center hydrALAZINE Yes 100mg Q.[id number] Take [address] (APRESOLINE 7-20 [id number] mg by L ukes - ) 100 MG 15:20: 3D mouth 3 Medica l tablet 59 (three) Center times daily. magnesium 2017- Yes 400mg QD Take [address] oxide 7-20 mg by [facility] - (MAG-OX) 15:20: mouth Medical 400 mg 59 daily. Center tablet metoclopram 2017- Yes 10mg Q.[id number] Take [address] gadiel HCl 7-20 [id number] by mouth 3 [facility] - (REGLAN) 10 15:20: 3D (three) Med ical MG tablet 59 times Center daily. meclizine 2017- Yes 12.5mg Take 12.[address] (ANTIVERT) 7-20 mg by [facility] - 25 MG 15:20: mouth 3 Medical tablet 59 (three) Center times daily as needed. sertraline 2017-0 Yes anxiety QD Take by [facility] (ZOLOFT) 7-20 with mouth [facility] - 100 MG 15:20: depression daily. Med ical tablet 59 Center medroxyPROG Yes Inject [facility] ESTERone 7-20 intramuscu [facility] - (DEPO-PROVE 15:20: larly Medic al RA) 150 59 every 3 Center mg/mL (three) injection months. insulin Yes 5U QD Inject [address] glargine 7-20 Units [facility] - (LANTUS) 00:00: subcutaneo Med ical 100 unit/mL 00 usly every Ce nter injection morning Use as directed . Furosemide Yes 40 mg = 1 Me moria 40 MG Oral 2-09 tab, PO, l Tablet 15:07: Daily, # Vin 00 30 tab, 0 Refill(s), Pharmacy: [id number] Bumex No 0.5 mg, Memoria 2-09 Route: PO, l 15:00: Drug form: [place] 00 TAB, Daily, Dosing Weight 92.273, kg, Start date: 07/30/16 9:00:00 DISCHARGE PLANNER, Duration: 30 day, Stop date: 08/28/16 9:00:00 DISCHARGE PLANNER Lasix No Notes: Memoria 2-08 (Same as: l 20:05: Lasix) [place] 00 May cause GI upset. Give with food or milk. Hydralazine No Notes: Mendoza janice 2-08 (Same as: l 06:05: Apresoline [place] 00 ) Push over 5 minutes sodium 2016- No 1,000 mL, Memori a chloride 2-05 Rate: 125 l 0.9% 1000 18:26: ml/hr, Jake n ml INJ 00 Infuse 1,000 mL over: 8 hr, Route: IV, Dosing Weight 92.273 kg, Total Volume: 1,000, Start date: 07/26/16 12:26:00 DISCHARGE PLANNER, Duration: 30 day, Stop date: 08/25/16 12:25:00 DISCHARGE PLANNER Sodium 2017- No 500 mL, Memoria Chloride 2-05 500 ml/hr, l 0.154 13:30: Infuse [place] MEQ/ML 00 Over: 1 Injectable hr, Route: Solution IV, 500, Drug form: INJ, ONCE, Priority: STAT, Dosing Weight 92.273 kg, Start date: 07/26/16 7:30:00 DISCHARGE PLANNER, Duration: 1 doses or times, Stop date: 07/26/16 7:30:00 DISCHARGE PLANNER Insulin No 60 Memoria regular 2-04 units) l 08:39: WASTE: F/P [place] 00 - Black; E - Municipal Trash Bin Stable for 28 days at room temperatur e Expires in days from ____Date Insulin, No Notes: Memoria Aspart, 2-04 Roll in l Human 07:31: palms of [place] 00 hands gently; Do not shake vigorously . (Same as: NovoLOG) "single patient use only" WASTE: F/P - Black; E - Municipal Trash Bin Stable for 28 days at room temperatur e. Expires in days from ____Date Insulin, No Notes: Memoria Aspart, 2-04 Roll in l Human 05:42: palms of Vin 00 hands gently; Do not shake vigorously . (Same as: NovoLOG) "single patient use only" WASTE: F/P - Black; E - Municipal Trash Bin Stable for 28 days at room temperatur e. Expires in days from ____Date Insulin, No Notes: Memoria Aspart, 2-04 Roll in l Human 03:28: palms of [place] 00 hands gently; Do not shake vigorously . (Same as: NovoLOG) "single patient use only" WASTE: F/P - Black; E - Municipal Trash Bin Stable for 28 days at room temperatur e. Expires in days from ____Date atorvastati No Notes: Mendoza janice n 2-04 (Same as: l 03:00: Lipitor) Vin divalproex No Notes: Memor ia sodium 2-04 (Same as: l 03:00: Depakote Vin 00 ER) Once daily dosing; indicated for migraines. Divalproe x sodium extended-r elease tab. Do not chew or crush. "Do Not Crush" Lasix No Notes: Memoria 2-03 (Same as: l 22:00: Lasix) MEDICATION WASTE Product Size: 40 mg Product Wasted: ___ mg Tylenol No Notes: Max Mendoza janice 2-03 acetaminop l 21:52: hen = 4000mg/day (4 gm/day). (Same as: Tylenol) Bupropion No 150 mg, 1 Mem oria 2-03 tab, l 15:00: Route: PO, Drug form: ERTAB, Daily, Dosing Weight 92.273, kg, Start date: 07/24/16 9:00:00 DISCHARGE PLANNER, Duration: 30 day, Stop date: 08/22/16 9:00:00 DISCHARGE PLANNER 24 HR No Notes: Memoria Divalproex 2-03 [...] form: ERTAB, Daily, Start date: 07/24/16 9:00:00 DISCHARGE PLANNER, Duration: 30 day, Stop date: 08/22/16 9:00:00 DISCHARGE PLANNER Insulin No Notes: Memoria Glargine 2-03 Same as: l 100 UNT/ML 15:00: Lantus) Do H ermann Injectable 00 not hold Solution insulin [Lantus] without contacting prescriber WASTE: F/P - Black; E - Municipal Trash Bin Hydralazine No Notes: Mendoza janice Hydrochlori - (Same as: l de 100 MG 15:00: Apresoline He rmann Oral Tablet 00 ) May interfere w/enteral feedings Take With Food Ondansetron No Notes: Mendoza janice 2-03 (Same as: l 14:50: Zofran) [place] 00 MEDICATION WASTE Product Size: 4 mg Product Wasted: ___ mg Morphine No Notes: Memoria 2-03 (Same l 14:50: as:MORPhin [place] 00 e Sulfate) Insulin, No Notes: Memoria Aspart, 2-03 Roll in l Human 13:30: palms of [place] 00 hands gently; Do not shake vigorously . (Same as: NovoLOG) "single patient use only" WASTE: F/P - Black; E - Municipal Trash Bin Stable for 28 days at room temperatur e. Expires in days from ____Date Dilaudid No Notes: Memoria 2-03 Same as l 11:28: Dilaudid [place] 00 Insulin, No Notes: Memoria Aspart, 2-03 Roll in l Human 08:40: palms of Vin 00 hands gently; Do [...] Blood Glucose Results, Start date: 07/24/16 2:40:00 DISCHARGE PLANNER, Duration: 30 day, Stop date: 08/23/16 2:39:00 DISCHARGE PLANNER Dextrose No 25 gm, 50 Mendoza janice 50% Syringe 2-03 mL, Route: l 08:40: IVP, Drug [place] 00 Form: INJ, Dosing Weight 92.273, kg, PRN, PRN Blood Glucose Results, Start date: 07/24/16 2:40:00 DISCHARGE PLANNER, Duration: 30 day, Stop date: 08/23/16 2:39:00 DISCHARGE PLANNER Docusate No Notes: Memoria 2-03 (Same as: l 07:20: Colace) Vin 00 (Do Not Crush) Ondansetron No Notes: Mendoza janice 2-03 (Same as: l 07:20: Zofran) [place] 00 MEDICATION WASTE Product Size: 4 mg Product Wasted: ___ mg Lasix No Notes: Memoria 2-03 (Same as: l 06:01: Lasix) MEDICATION WASTE Product Size: 40 mg Product Wasted: ___ mg Aspirin No Notes: Memoria 2-03 Take with l 05:48: food. [place] 00 Prednisone No Notes: Memor ia 2-03 Take with l 05:02: food. Vin 00 Albuterol No Notes: Memori a 0.833 MG/ML 07-24 (Same as: l / 04:09: Duoneb) [place] Ipratropium 00 [place] 0.167 MG/ML Inhalant Solution [DuoNeb] Furosemide 2015-06 Yes 80 mg = 2 Me moria 40 MG Oral 2-26 tab, PO, l Tablet 16:34: BID, # 120 Nidia nn 00 tab, 0 Refill(s) atorvastati 2015-06 Yes 40 mg = 1 M emoria n 40 mg 2-26 tab, PO, l oral tablet 16:34: Bedtime, # [place] 00 30 tab, 0 Refill(s) Insulin 2015-06 [...] INHALATION l 0.09 16:34: , PRN, PRN Vin MG/ACTUAT 00 as needed Metered for Dose wheezing, Inhaler use as needed for shortness of breath or wheezing, # 8 gm, 0 Refill(s) Aspirin 81 2015-06 Yes 81 mg = 1 Me moria MG Chewable 2-26 tab, PO, l Tablet 16:34: Daily, # [place] 00 30 tab, 0 Refill(s) Hydroxyzine 2015-06 Yes 50 mg = 1 M emoria Hydrochlori 2-26 cap, PO, l de 50 MG 16:34: TID, X 30 Herm naeem Oral 00 day, # 90 Capsule cap, 0 Refill(s) losartan 25 2015-06 Yes 25 mg = 1 M emoria mg oral 2-26 tab, PO, l tablet 16:34: Daily, # [place] 00 30 tab, 0 Refill(s) Lasix 2015-06 No Notes: Memoria 2-26 (Same as: l 15:00: Lasix) [place] 00 May cause GI upset. Give with food or milk. Magnesium 2015-06 No Notes: Memori a Oxide 2-24 (Same as: l 13:36: Mag-Ox [place] 00 400) Magnesium oxide 673ms=468l g elemental magnesium Dose=____m g magnesium oxide (___mg elemental magnesium) Magnesium 2015-06 No Notes: Memori a Oxide 2-24 (Same as: l 09:47: Mag-Ox Vin 00 400) Magnesium oxide 964fs=490j g elemental magnesium Dose=____m g magnesium oxide [...] (Same as: l tablet 01:08: Apresoline Nidia 00 ) May interfere w/enteral feedings Take With Food Wellbutrin 2015-06 No Notes: Memor ia XL 2-24 (Same as: l 00:00: Wellbutrin Vin 00 XL) "Do Not Crush" Norvasc 2015-06 No Notes: Memoria 2-24 (Same as: l 00:00: Norvasc) [place] 00 Insulin 2015-06 No Notes: Memoria Glargine [...] tab, PO, l tablet 15:35: Daily, 0 [place] 00 Refill(s) pravastatin 2015-06 No 40 mg = 1 M emoria 40 mg oral 2-23 tab, PO, l tablet 15:35: Daily, 0 [place] 00 Refill(s) Sertraline 2015-06 Yes 200 mg = 2 M emoria 100 MG Oral 2-23 tab, PO, l Tablet 15:27: Daily, 0 [place] [Zoloft] 00 Refill(s) pantoprazol 2015-06 Yes 40 mg = 1 M emoria e 40 MG 2-23 tab, PO, l Enteric 15:27: Daily, 0 Jake n Coated 00 Refill(s) Tablet [Protonix] gabapentin 2015-06 Yes 1 CAP PO Mem oria 300 MG Oral 2-23 BID AND 1 l Capsule 15:27: CAP AT [place] 00 BEDTIME, 0 Refill(s) Insulin, 2015-06 No [...] 2-22 Take with l Tablet 15:00: food. Vin 00 gabapentin 2015-06 No Notes: Memor ia 300 MG Oral 2-22 (Same as: l Capsule 15:00: Neurontin) Herm naeem 00 Divalproex 2015-06 No Notes: Memor ia Sodium 500 2-22 (Same as: l MG Enteric 15:00: Depakote Her braden Coated 00 ER) Once Tablet daily [Depakote] dosing; indicated for migraines. Divalproe x sodium extended-r elease tab. Do not chew or crush. "Do Not Crush" Aspirin 2015-06 No 81 mg, Memoria 2-22 Route: PO, l 15:00: Drug form: [place] 00 ECTAB, Daily, Dosing Weight 86.364, kg, Start date: 06/11/16 9:00:00 DISCHARGE PLANNER, Duration: 30 day, Stop date: 07/10/16 9:00:00 DISCHARGE PLANNER Insulin 2015-06 No Notes: Memoria Glargine 2-22 Same as: l 100 UNT/ML 15:00: Lantus) Do H ermann Injectable 00 not hold Solution insulin [Lantus] without contacting prescriber WASTE: F/P - Black; E - Municipal Trash Bin Zoloft 2015-06 No Notes: Memoria 2-22 (Same as: l 15:00: Zoloft) Vin Insulin, 2015-06 No Notes: Memoria Aspart, 2-22 Roll in l Human 12:55: palms of Vin 00 hands gently; Do not shake vigorously . (Same as: NovoLOG) "single patient use only" WASTE: F/P - Black; E - Municipal Trash Bin Stable for 28 days at room temperatur e. Expires in days from ____Date heparin 2015-06 No Notes: Memoria sodium, 2-22 porcine l porcine 06:00: heparin [place] 2500 UNT/ML 00 Injectable Solution Albuterol 2015-06 No Notes: Memori a 0.833 MG/ML -22 (Same as: l / 03:00: Duoneb) [place] Ipratropium 00 [place] 0.167 MG/ML Inhalant Solution [DuoNeb] gabapentin 2015-06 No 300 mg, Mendoza janice 300 MG Oral 2-22 Route: PO, l Capsule 03:00: Drug form: Herm naeem 00 CAP, Q12H, Dosing Weight 86.364, kg, (CrCl 30 - 59 ml/min), Start date: 06/10/16 21:00:00 DISCHARGE PLANNER, Duration: 30 day, Stop date: 07/10/16 9:00:00 DISCHARGE PLANNER divalproex 2015-06 No Notes: Memor ia sodium 2-22 (Same as: l 03:00: Depakote ER) Once daily dosing; indicated for migraines. Divalproe x sodium extended-r elease tab. Do not chew or crush. "Do Not Crush" Losartan 2015-06 No Notes: Memoria 2-22 (Same as: l 03:00: Cozaar) Vin 00 Insulin, 2015-06 No Notes: Memoria Aspart, 2-22 Roll in l Human 00:50: palms of hands gently; Do not shake vigorously . (Same as: NovoLOG) "single patient use only" WASTE: F/P - Black; E - [facility] Trash Bin Stable for 28 days at room temperatur e. Expires in days from ____Date Dextrose 2015-06 No 12.5 gm, Memor ia 50% Syringe 2-22 25 mL, l 00:50: Route: IVP, Drug Form: INJ, Dosing Weight 86.364, kg, PRN, PRN Blood Glucose Results, Start date: 06/10/16 18:50:00 DISCHARGE PLANNER, Duration: 30 day, Stop date: 07/10/16 18:49:00 DISCHARGE PLANNER Glucagon 2015-06 No 1 mg, Memoria 2-22 Route: IM, l 00:50: Drug form: PDR/INJ, PRN, Dosing Weight 86.364, kg, PRN Blood Glucose Results, Start date: 06/10/16 18:50:00 DISCHARGE PLANNER, Duration: 30 day, Stop date: 07/10/16 18:49:00 DISCHARGE PLANNER Hydralazine 2015-06 No Notes: Mendoza janice 2-22 (Same as: l 00:36: Apresoline ) Push over 5 minutes Hydralazine 2015-06 No Notes: Mendoza janice 2-22 (Same as: l 00:34: Apresoline ) May interfere w/enteral feedings Take With Food metoprolol 2015-06 No Notes: Memor ia extended 08-12 (Same as: l release 00:08: Toprol XL) May split tab, but do not crush. Hydralazine 2015-06 No 10 mg, Mendoza janice 08-12 Route: IV, l 00:06: ONCE, Dosing Weight 86.364, kg, Start date: 06/10/16 18:06:00 DISCHARGE PLANNER, Stop date: 06/10/16 18:06:00 DISCHARGE PLANNER hydrOXYzine 2015-06 No Notes: Mendoza janice pamoate 08-11 (Same as: l 23:00: Vistaril) Furosemide 2015-06 No 60 mg, Memor ia 08-11 Route: l 22:32: IVP, Drug form: INJ, ONCE, Dosing Weight 86.364, kg, Start date: 06/10/16 16:32:00 DISCHARGE PLANNER, Stop date: 06/10/16 16:32:00 DISCHARGE PLANNER Lasix 2015-06 No Notes: Memoria - (Same as: l 17:22: Lasix) MEDICATION WASTE Product Size: 40 mg Product Wasted: _0__ mg Albuterol 2015-06 No Notes: Memori a 0.833 MG/ML 08-11 (Same as: 17:22: Duoneb) Ipratropium 00 [place] 0.167 MG/ML Inhalant Solution [DuoNeb] Promethazin Yes 25 mg = 1 M emoria e 06-26 supp, HI, l Hydrochlori 14:45: Q6H, Jake gonzalez de [...] 1 tab, Me moria n 500 MG 1-06 PO, Q6H, # l Enteric 14:24: 40 tab, 0 Nidia nn Coated 00 Refill(s) Tablet Hydromorpho No Notes: Mendoza janice ne 06 Same as: l 11:48: Dilaudid hydrOXYzine Yes [...] as: l 10:56: Ativan) Metoclopram No Notes: Mendoza janice gadiel 06-26 (Same as: l 10:55: [...] Rate: 125 l 0.9% IV 04:10: ml/hr, [place] 1,000 mL 00 Infuse over: 8 hr, Route: IV, Dosing Weight 63.636 kg, Total Volume: 1,000, Start date: 04/14/13 23:10:00, Duration: 30 day, Stop date: 05/14/13 23:09:00 morphine 2011-0 No Hung Murillo 5 mg, Me moria Sulfate 9-25 Marx Route: l 01:15: IVP, ONCE, Dosing Weight 58.636, kg, Priority: STAT, Start date: 03/14/12 20:15:00, Stop date: 03/14/12 20:15:00 Sodium 2011-0 No Hung Murillo 500 mL, Me moria Chloride 9-24 Marx Rate: 500 l 0.9% 23:45: ml/hr, [place] (Bolus) IV 00 Infuse 500 mL over: [...] date: 03/14/12 17:19:00 Sodium 2011-0 No Hung Murilol 500 mL, Me moria Chloride 9-24 Marx Rate: l 0.9% 22:19: 1,000 Vin (Bolus) IV 00 ml/hr, 500 mL Infuse [...] insulin No Blake 10 unit, Mem oria isophane-[employer] 6-11 Deangelo 0.1 mL, l H 02:00: Route: Vin 00 SUB-Q, Drug form: INJ, Bedtime, Start date: 11/29/11 21:00:00, Duration: 30 day, Stop date: 12/28/11 21:00:00 Insulin No Blake 8 unit, Mendoza janice regular 6-11 Deangelo 0.08 mL, l 02:00: Route: [place] SUB-Q, Drug form: SOLN, Bedtime, Start date: [...] 30 day, Stop date: 12/28/11 21:00:00 amLODipine No Blake 5 mg, 1 M emoria 6-11 Deangelo tab, l 01:11: Brisa Route: PO, Her braden 00 Drug form: TAB, ONCE, Priority: NOW, Start date: 11/29/11 20:11:00, Stop date: 11/29/11 20:11:00 morphine 2011- No [place] 2 mg, Memori a Sulfate 6-10 Omidvar Route: l 21:33: IVP, ONCE, [place] 00 Start date: 11/29/11 16:33:00, Stop date: 11/29/11 16:33:00 morphine No [place] 2 mg, 0.5 Me moria [...] 2011- No Blake 14 unit, Mem oria isophane-[employer] 6-10 Deangelo 0.14 mL, l H 14:00: Brisa Route: [place] SUB-Q, Drug form: INJ, Daily, Start date: 11/29/11 9:00:00, Duration: 30 day, Stop date: 12/28/11 9:00:00 Insulin 2011-0 No Blake 10 unit, Mem oria regular 6-10 Deangelo 0.1 mL, l 14:00: Brisa Route: [place] 00 SUB-Q, Drug form: SOLN, Daily, Start date: 11/29/11 9:00:00, Duration: 30 day, Stop date: 12/28/11 9:00:00 Effexor XR No Blake 75 mg, 1 Memoria 6-10 Deangelo cap, l 14:00: Brisa Route: PO, Her braden 00 Drug form: ERCAP, Daily, Start date: 11/29/11 9:00:00, Duration: 30 day, Stop date: 12/28/11 9:00:00 lisinopril 2011-0 No Blake 40 mg, 2 Memoria 6-10 [...] aspart 6-10 Deangelo 0.1 mL, l 06:30: Route: [place] 00 SUB-Q, Drug form: SOLN, TID-Before Meals, PRN Blood Glucose Results, Start date: 11/29/11 1:30:00, Duration: 30 day, Stop date: 12/29/11 1:29:00 Dextrose 2011-0 No Blake 25 gm, 50 M emoria 50% Syringe 6-10 Deangelo mL, Route: l 06:30: Brisa IVP, Drug Herm naeem 00 Form: INJ, PRN, PRN Blood Glucose Results, [...] IV 1,000 mL 06:29: Brisa ml/hr, Vin 00 Infuse over: 5 hr, Route: IV, Dosing Weight 57.273 kg, Total Volume: 1,000, Start date: 11/29/11 1:29:00, Duration: 30 day, Stop date: 12/29/11 1:28:00 Saline 2011-0 No Blake 5 ml, Memoria Flush 0.9% 6-10 Deangelo Route: l 06:28: Brisa IVP, Drug Herm naeem 00 Form: INJ, PRN, PRN Line Flush, Start date: 11/29/11 1:28:00, Duration: 30 day, Stop date: 12/29/11 1:27:00 ondansetron No Blake 4 mg, 2 Memoria 6-10 [...] 30 day, Stop date: 12/29/11 0:00:00 Protonix No Blake 40 mg, Mendoza janice 6-10 Deangelo Route: IV, l 06:28: Brisa Drug form: Her braden 00 INJ, ONCE, Priority: STAT, Start date: 11/29/11 1:28:00, Stop date: 11/29/11 1:28:00 metoclopram 0 No Nikki 10 mg, 2 Memoria gadiel 6-10 Sarah mL, Route: l 04:01: Brown IVP, Drug [place] 00 form: INJ, ONCE, Priority: STAT, Start date: 11/28/11 23:01:00, Stop date: 11/28/11 23:01:00 Zofran No Nikki 4 mg, 2 Mendoza janice 6-10 Sarah mL, Route: l 02:31: Brown IVP, Drug [place] 00 form: INJ, ONCE, Priority: STAT, Start date: 11/28/11 21:31:00, Stop date: 11/28/11 21:31:00 NS (Bolus) No Arif Domenico 1,000 mL, Memoria IV 1,000 mL 11-27 Rate: l 22:48: 1,000 [place] 00 ml/hr, Infuse over: 1 hr, Route: [...] 6-09 mL, Route: l 20:35: IVP, Drug [place] 00 form: INJ, ONCE, Priority: STAT, Start date: 11/28/11 15:35:00, Stop date: 11/28/11 15:35:00 Novolin R Yes Hughes-Jason 8 unit, M emoria 100 3-30 Harris SUB-Q, l units/mL 17:47: Dawson Q12H, 2 He rmann injectable 42 Pu vial, solution Substituti on Allowed, SOLN Novolin N Yes Hughes-Jason 10 unit, Memoria 100 3-30 Harris SUB-Q, l units/mL 17:46: Dawson Bedtime, H ermann subcutaneou 27 Pu 10 ml, s injection Substituti on Allowed, SUSP Novolin N Yes Hughes-Jason 14 unit, Memoria 100 3-30 Harris SUB-Q, l units/mL 17:44: Eunice QAM, 1 Her braden subcutaneou 37 Pu vial, s injection Substituti on Allowed, SUSP magnesium No Hughes-Jason 400 mg, 1 Memoria oxide 3-30 Harris tab, l 14:55: Dawson Route: PO, Her braden 00 Pu Drug form: TAB, ONCE, Priority: STAT, Start date: 09/18/11 9:55:00, Stop date: 09/18/11 9:55:00 Insulin No Hughes-Jason 8 unit, Mem oria regular 3-30 Harris 0.08 mL, l 14:22: Eunice Route: Vin 00 Pu SUB-Q, Drug form: SOLN, ONCE, Priority: STAT, Start date: 09/18/11 9:22:00, Stop date: 09/18/11 9:22:00 Lactated No Hughes-Jason 1,000 mL, Memoria Ringers - Harris Rate: l (Bolus) IV 14:16: Eunice 1,000 He rmann 1,000 mL 00 Pu ml/hr, Infuse over: 1 hr, Route: IV, Total Volume: 1,000, Bolus Dose, Priority: STAT, Start date: 09/18/11 9:16:00, Duration: 1 doses or times, Stop date: 09/18/11 10:15:00 Sodium No Hughes-Jason 1,000 mL, Me moria Chloride 3-30 Harris Rate: l 0.9% 14:06: Eunice 1,000 Vin (Bolus) IV 00 Pu ml/hr, 1000 mL Infuse over: 1 hr, Route: IV, kg, Total Volume: 1,000, Bolus Dose, Priority: STAT, Start date: 09/18/11 9:06:00, Duration: 1 doses or times, Stop date: 09/18/11 10:05:00 sulfamethox 2011- Yes Substituti Memoria azole 3-30 on Allowed l 14:04: [place] 58 Sodium No Hughes-Jason 1,000 mL, Me moria Chloride 3-30 Harris Rate: l 0.9% 13:56: Dawson 1,000 Vin (Bolus) IV 00 Pu ml/hr, 1000 mL Infuse over: 1 hr, Route: IV, kg, Total Volume: 1,000, Bolus Dose, Priority: STAT, Start date: 09/18/11 8:56:00, Duration: 1 doses or times, Stop date: 09/18/11 9:55:00 clindamycin No Eber L 300 mg, 2 Memoria 3-21 Anabelle cap, l 21:00: Route: PO, Vin Drug form: CAP, Q8H, Start date: 09/09/11 16:00:00, Duration: 30 day, Stop date: 10/09/11 8:00:00 Colace 100 2011- Yes Luna 100 mg, 1 Memoria mg oral 3-21 Amelia cap, PO, l capsule 18:47: Pettus BID, 60 Her braden 19 cap, Substituti on Allowed, CAP clindamycin Yes Luna 300 mg, 2 Memoria 150 mg oral 3-21 Amelia cap, PO, l capsule 18:46: Zeeshan Q8H, 30 Her braden 55 cap, Substituti on Allowed, CAP [place] Yes Luna 1 tab, PO, Memoria 10/325 oral 3-21 Amelia Q4H, PRN, l tablet 18:46: Pettus 30 tab, Herm naeem 36 Pain, Substituti on Allowed, Maintenanc e, TAB [place] No Hollie Donavan 1 tab, Mendoza janice 10/325 oral 3-21 Mahi Route: PO, l tablet 09:00: Drug Form: Nidia nn 00 TAB, Q4H, Start date: 09/09/11 4:00:00, Duration: 30 day, Stop date: 10/09/11 0:00:00 Colace 100 2011-0 No [place] 100 mg, 1 Memoria mg oral 3-19 Omidvar cap, l capsule 22:00: Route: PO, Herm naeem 00 Drug form: CAP, BID, Start date: 09/07/11 17:00:00, Duration: 30 day, Stop date: 10/07/11 9:00:00 enalapril 2011-0 No [place] 5 mg, 1 Mem oria 3-19 Omidvar tab, l 15:30: Route: PO, Vin 00 Drug form: TAB, Daily, Start date: 09/07/11 10:30:00, Duration: 30 day, Stop date: 10/07/11 9:00:00 flumazenil 2011- No Gayle 0.2 mg, 2 Memoria 3-19 Josefina mL, Route: l 14:19: Gavin IVP, Drug Jake n 00 form: INJ, PRN, PRN Benzodiaze pine Reversal, Initial dose, Start date: 09/07/11 9:19:00, Duration: 1 day, Stop date: 09/08/11 9:18:00 naloxone No Gayle 0.04 mg, Me moria 3-19 Josefina 0.1 mL, l 14:19: Friendship Route: Vin IVP, Drug form: INJ, Q2MIN, PRN Narcotic Reversal, Start date: 09/07/11 9:19:00, Duration: 8 doses or times, Stop date: Limited # of times ondansetron No Gayle 4 mg, 2 Memoria 3-19 Josefina mL, Route: l 14:19: Friendship IVP, Drug Jake n 00 form: INJ, ONCE, PRN Nausea & Vomiting, Start date: 09/07/11 9:19:00 hydromorpho No Gayle 0.5 mg, Memoria ne - Josefina 0.25 mL, l 14:19: Friendship Route: Vin 00 IVP, Drug form: INJ, Q5Min, PRN Pain Score 4-6, Start date: 09/07/11 9:19:00, Duration: 5 doses or times, Stop date: Limited # of times acetaminoph No Gayle 15 mL, M emoria en-hydrocod 3- Josefina Route: PO, l one 325 14:19: Gavin Drug Form: He rmann mg-10 mg/15 00 SOLN, Q4H, mL oral PRN Pain solution Score 4-6, Start date: 09/07/11 9:19:00, Duration: 1 day, Stop date: 09/08/11 8:00:00 Lactated 2011-0 No [place] 1,000 mL, Me moria Ringers IV 09-06 Omidvar Rate: 125 l 1,000 mL 14:06: ml/hr, [place] 00 Infuse over: 8 hr, Route: IV, Dosing Weight 68.182 kg, Total Volume: 1,000, Start date: 09/07/11 9:06:00, Duration: 30 day, Stop date: 10/07/11 9:05:00 clindamycin No Maximo R 600 mg, Memoria 3-19 Arias Route: l 13:31: IVPB, [place] 00 ONCE, Start date: 09/07/11 8:31:00, Stop date: 09/07/11 8:31:00 normal 2011- No Yury W 1,000 mL, M emoria saline 0.9% 3-19 Adeline Rate: 100 l IV 1,000 mL 05:00: ml/hr, Herm naeem 00 Infuse over: 10 hr, Route: IV, Dosing Weight 68.18 kg, Total Volume: 1,000, Start date: 09/07/11 0:00:00, Duration: 30 day, Stop date: 10/06/11 23:59:00 normal 2011- No Yury W 1,000 mL, M emoria saline 0.9% 3-18 Adeline Rate: 100 l IV 1000 mL 13:25: ml/hr, Nidia nn 00 Infuse over: 10 hr, Route: IV, kg, Total Volume: 1,000, Start date: 09/06/11 8:25:00, Duration: 30 day, Stop date: 10/06/11 8:24:00 senna 8.6 2011- No [place] 8.6 mg, 1 M emoria mg oral 3-17 Omidvar tab, l tablet 15:00: Route: PO, Nidia nn 00 Drug Form: TAB, BID, PRN as needed for constipati on, Start date: 09/05/11 10:00:00, Duration: 30 day, Stop date: 10/05/11 9:00:00 Colace 100 2011-0 No [place] 100 mg, 1 Memoria mg oral 3-17 Omidvar cap, l capsule 15:00: Route: PO, Herm naeem 00 Drug form: CAP, BID, PRN as needed for constipati on, Start date: 09/05/11 10:00:00, Duration: 30 day, Stop date: 10/05/11 9:00:00 potassium 2012-0 No [place] 40 mEq, 2 M emoria chloride 3-17 Omidvar tab, l 14:11: Route: PO, [place] 00 Drug form: ERTAB, ONCE, Start date: 09/05/11 9:11:00, Stop date: 09/05/11 9:11:00 Dulcolax 2012-0 No Charbel A 10 mg, 2 M emoria Laxative 3-17 Wong tab, l 04:00: Route: PO, Vin 00 Drug form: ECTAB, Daily, PRN Constipati [...] Duration: 30 day, Stop date: 10/04/11 18:10:00 [place] 2012-0 No Mahammad 1 tab, Memori a 10/325 oral 3-16 Simeon Route: PO, l tablet 17:00: Dez Drug Form: He rmann 00 TAB, Q4H, [...] 7 day, Stop date: 09/11/11 10:00:00 ondansetron 2011-0 No Rosalino 4 mg, 2 Memoria 3-16 Kavon mL, Route: l 14:50: IVP, Drug [place] 00 form: INJ, ONCE, PRN Nausea & Vomiting, Start date: 09/04/11 9:50:00, Duration: 1 doses or times, Stop date: Limited # of times ropivacaine No Rosalino Dosing: Memoria 0.2% in NS 3-16 Kavon 10cc/hr, l - site 1 14:50: Route: [place] 400 mL 00 NERVE BLOCK, Start date: 09/04/11 9:50:00 400 mL, Duration: 30 day, Stop date: 10/04/11 9:49:00 naloxone No Rosalino 0.04 mg, Me moria 3-16 Kavon 0.1 mL, l 14:50: Route: [place] 00 IVP, Drug form: INJ, Q2MIN, PRN Narcotic Reversal, Start date: 09/04/11 9:50:00, Duration: 30 day, Stop date: 10/04/11 9:49:00 [place] No [place]ism[place] 1 tab, Memoria 10/325 oral -16 Omidvar Route: PO, l tablet 14:49: Drug Form: Nidia nn 00 TAB, Q4H, PRN Pain, Start date: 09/04/11 9:49:00, Stop date: 10/04/11 9:48:00 labetalol No Gregory F 5 mg, Mendoza janice 3-16 Puga Route: IV, l 14:40: ONCE, [place] 00 Start date: 09/04/11 9:40:00, Stop date: 09/04/11 9:40:00 ondansetron No Hollie 4 mg, 2 Me moria 3-16 Beck mL, Route: l 13:37: Hayden IVP, Drug Nidia nn 00 form: INJ, ONCE, PRN Nausea & Vomiting, Start date: 09/04/11 8:37:00 naloxone No Hollie 0.04 mg, Mendoza janice 3-16 Beck 0.1 mL, l 13:37: Hayden Route: [place] 00 IVP, Drug form: INJ, Q2MIN, PRN Narcotic Reversal, Start date: 09/04/11 8:37:00, Duration: 8 doses or times, Stop date: Limited # of times meperidine No Hollie 12.5 mg, Me moria 3-16 Beck 0.5 mL, l 13:37: Hayden Route: Vin 00 IVP, Drug form: INJ, Q30Min, PRN Other -See Comment, For shivering, Start date: 09/04/11 8:37:00, Duration: 2 doses or times, Stop date: Limited # of times flumazenil No Hollie 0.2 mg, 2 M emoria 3-16 Beck mL, Route: l 13:37: Hayden IVP, Drug Nidia nn 00 form: INJ, PRN, PRN Benzodiaze pine Reversal, Initial dose, Start date: 09/04/11 8:37:00, Duration: 1 day, Stop date: 09/05/11 8:36:00 hydromorpho 2011- No Rosalino 0.5 mg, Memoria ne 3-16 Kavon 0.25 mL, l 13:37: Route: [place] 00 IVP, Drug form: INJ, Q5Min, PRN Pain Score 4-6, Start date: 09/04/11 8:37:00, Duration: 5 doses or times, Stop date: Limited # of times clindamycin No Eber L 600 mg, 4 Memoria 3-15 Anabelle mL, Route: l 16:00: IVPB, [id number], Start date: 09/03/11 11:00:00, Duration: 30 day, Stop date: 10/03/11 8:00:00 potassium 2011-0 No [place] 40 mEq, 2 M emoria chloride 3-15 Omidvar tab, l 13:39: Route: PO, Drug form: ERTAB, ONCE, Start date: 09/03/11 8:39:00, Stop date: 09/03/11 8:39:00 [place] 5/325 2011-0 No Rosalino 1 tab, M emoria oral tablet 3-15 Kavon Route: PO, l 05:00: Drug Form: Vin TAB, Q4H, Start date: 09/03/11 0:00:00, Duration: 30 day, Stop date: 10/02/11 20:00:00 Geodon 2011-0 No Eber L 120 mg, 3 Memoria 3-15 Anabelle cap, l 02:00: Route: PO, Vin Drug form: CAP, Bedtime, Start date: 09/02/11 21:00:00, Duration: 30 day, Stop date: 10/01/11 21:00:00 trazodone 2011-0 No Eber L 200 mg, 4 Memoria 100 mg oral 3-15 Anabelle tab, l tablet 02:00: Route: PO, Nidia nn Drug form: TAB, Bedtime, Start date: 09/02/11 21:00:00, Duration: 30 day, Stop date: 10/01/11 21:00:00 Effexor XR 2011-0 No Eber L 75 mg, 1 Memoria 3-14 Anabelle cap, l 17:00: Route: PO, Vin 00 Drug form: ERCAP, Daily, Give qAM after today's dose., Start date: 09/02/11 12:00:00, Duration: 30 day, Stop date: 10/02/11 9:00:00 [place] 5/325 2011- No Rosalino 1 tab, M emoria oral tablet 3-14 Kavon Route: PO, l 16:25: Drug Form: TAB, Q4H, PRN Pain, Start date: 09/02/11 11:25:00, Duration: 30 day, Stop date: 10/02/11 11:24:00 magnesium 2011-0 No [place] 4 gm, 50 Me moria sulfate 3-14 Omidvar mL, Route: l 16:15: IVPB, Drug form: INJ, ONCE, Start date: 09/02/11 11:15:00, Stop date: 09/02/11 11:15:00 Lovenox 2011-0 No Missael 40 mg, 0.4 Mem oria 3-14 Movva mL, Route: l 14:00: SUB-Q, Drug form: INJ, Daily, Start date: 09/02/11 9:00:00, Duration: 30 day, Stop date: 10/01/11 9:00:00 vancomycin 2011-0 No Eber L 1 gm, Memoria 3-14 Anabelle Route: l 14:00: IVPB, Drug [place] 00 form: INJ, [id number], Start date: 09/02/11 9:00:00, Duration: 30 day, Stop date: 10/01/11 21:00:00 clindamycin 2011-0 No Eber L 600 mg, 4 Memoria (SCIP) 3-14 Anabelle mL, Route: l 10:00: IVPB, [place] 00 [id number], Start date: 09/02/11 5:00:00, Duration: 3 doses or times, Stop date: 09/02/11 21:00:00 clindamycin 2011- No Yury 600 mg, 4 Memoria (SCIP) 3-14 Silverio mL, Route: l 04:00: Connally IVPB, [place] 00 [id number], Start date: 09/01/11 23:00:00, Duration: 3 doses or times, Stop date: 09/02/11 15:00:00 insulin 2011-0 No [place] 15 unit, Mendoza janice isophane-[employer] 3-14 Omidvar 0.15 mL, l H 02:00: Route: Vin 00 SUB-Q, Drug form: INJ, Q12H, Start date: 09/01/11 21:00:00, Stop date: 10/01/11 9:00:00 labetalol No Mariaelena-Corea 5 mg, Me moria 3-14 Barbra Route: l 01:07: Feliciano IVP, [place] 00 Q5Min, PRN Elevated BP, Start date: 09/01/11 20:07:00, Duration: 5 doses or times, Stop date: Limited # of times hydrALAZINE No Mariaelena-Corea 5 mg, Memoria 3-14 Barbra Route: l 01:07: Feliciano IVP, Vin 00 Q5Min, PRN Elevated BP, Start date: 09/01/11 20:07:00, Duration: 4 doses or times, Stop date: Limited # of times hydromorpho No Mariaelena-Corea 0.5 mg, Memoria ne 3-14 Barbra Route: l 01:07: Feliciano IVP, Vin 00 Q5Min, PRN Pain Score 4-6, Start date: 09/01/11 20:07:00, Duration: 5 doses or times, Stop date: Limited # of times naloxone No Mariaelena-Corea 0.04 mg, Memoria 3-14 Barbra Route: l 01:07: Feilciano IVP, [place] 00 Q2MIN, PRN Narcotic Reversal, Start date: 09/01/11 20:07:00, Duration: 8 doses or times, Stop date: Limited # of times flumazenil No Mariaelena-Corea 0.2 mg, Memoria 3-14 Barbra Route: l 01:07: Feliciano IVP, PRN, [place] PRN Benzodiaze pine Reversal, Initial dose, Start date: 09/01/11 20:07:00, Duration: 30 day, Stop date: 10/01/11 20:06:00 ondansetron No Mariaelena-Corea 4 mg, Memoria 3-14 Barbra Route: l 01:07: Feliciano IVP, ONCE, [place] 00 PRN Nausea & Vomiting, Start date: 09/01/11 20:07:00 vancomycin No Mele 1 gm, Mem oria 3-14 Gauvain Route: l 01:00: IVPB, Drug form: INJ, [id number], Start date: 09/01/11 20:00:00, Duration: 30 day, Stop date: 10/01/11 8:00:00 Lactated 2011-0 No Charbel A 1,000 mL, Memoria Ringers IV 3-14 Wong Rate: 125 l 1,000 mL 00:55: ml/hr, Infuse over: 8 hr, Route: IV, Dosing Weight 68.2 kg, Total Volume: 1,000, Start date: 09/01/11 19:55:00, Duration: 30 day, Stop date: 10/01/11 19:54:00 vancomycin 2011-0 No Missael 1 gm, Memor ia 3-14 Movva Route: l 00:00: IVPB, Drug form: INJ, [id number], Start date: 09/01/11 19:00:00, Duration: 30 day, Stop date: 10/01/11 7:00:00 insulin 2011-0 No Missael 6 unit, Memori a aspart 3-13 Movva 0.06 mL, l 23:23: Route: [place] 00 SUB-Q, Drug form: SOLN, TID-Before Meals, [...] Movva mL, Route: l 23:23: IVP, Drug Vin Form: INJ, PRN, PRN Blood Glucose Results, Start date: 09/01/11 18:23:00, Duration: 30 day, Stop date: 10/01/11 18:22:00 morphine 2011-0 No Daja Shannan 2 mg, 1 M emoria Sulfate 3-13 Beni mL, Route: l 21:14: IVP, Drug [place] form: INJ, Q4H, PRN Severe Pain, Start date: 09/01/11 16:14:00, Stop date: 10/01/11 16:13:00 Lactated 2011-0 No Cesar 1,000 mL, Me moria Ringers IV 3-13 Manuel Alvaro Rate: 100 l 1,000 mL 19:03: ml/hr, Vin Infuse over: 10 hr, Route: IV, Dosing Weight 68.182 kg, Total Volume: 1,000, Start date: 09/01/11 14:03:00, Duration: 30 day, Stop date: 10/01/11 14:02:00 morphine 2012-0 No Enid 4 mg, 1 Memori a [...] Madden 0.08 mL, l 15:28: Gurinder Route: [place] 00 SUB-Q, Drug form: SOLN, ONCE, Priority: STAT, Start date: 09/01/11 10:28:00, Stop date: 09/01/11 10:28:00 Sodium 2011-0 No Enid 1,000 mL, Memori a Chloride 3-13 Madden Rate: l 0.9% 14:53: Gurinder 1,000 [place] (Bolus) IV 00 ml/hr, 1,000 mL Infuse [...] L 1,000 mL, M emoria Chloride 3-13 Cruzito Rate: l 0.9% 10:41: 1,000 Vin (Bolus) IV 00 ml/hr, 1000 mL Infuse over: 1 hr, Route: IV, Dosing Weight 68.182 kg, Total Volume: 1,000, Bolus Dose, Priority: STAT, Start date: 09/01/11 5:41:00, Duration: 1 doses or times, Stop date: 09/01/11 6:40:00 ondansetron 2011-0 No Bee L 4 mg, Memoria - Clifford Route: l 09:06: IVP, Drug Vin 00 form: INJ, ONCE, Priority: STAT, Start date: 09/01/11 4:06:00, Stop date: 09/01/11 4:06:00 morphine 2011-0 No Bee L 4 mg, Mem oria Sulfate - Cruzito Route: l 09:06: IVP, ONCE, Priority: STAT, Start date: 09/01/11 4:06:00, Stop date: 09/01/11 4:06:00 Sodium 2011-0 No Bee L 1,000 mL, M emoria Chloride 08-31 Cruzito Rate: l 0.9% 08:42: 1,000 Vin (Bolus) IV 00 ml/hr, 1000 mL Infuse over: 1 hr, Route: IV, Dosing Weight 68.182 kg, Total Volume: 1,000, Bolus Dose, Priority: STAT, Start date: 09/01/11 3:42:00, Duration: 1 doses or times, Stop date: 09/01/11 4:41:00 Insulin 2011-0 No Bee L 8 unit, Me moria regular 08-31 Clifford 0.08 mL, l 08:30: Route: [place] 00 IVP, Drug form: SOLN, ONCE, Priority: STAT, Start date: 09/01/11 3:30:00, Stop date: 09/01/11 3:30:00 Sodium 2011-0 No Bee L 1,000 mL, M emoria Chloride - [place] Rate: l 0.9% 07:29: 1,000 [place] (Bolus) IV 00 ml/hr, 1,000 mL Infuse over: 1 hr, Route: IV, Dosing Weight 68.182 kg, Total Volume: 1,000, Bolus Dose, Priority: STAT, Start date: 09/01/11 2:29:00, Duration: 1 doses or times, Stop date: 09/01/11 3:28:00 potassium No Velásquez Noam 40 mEq, 2 Memoria chloride 3-04 Akmal tab, l 15:00: Route: PO, [place] 00 Drug form: ERTAB, BID, Start date: 08/23/11 [...] solution Allowed, before breakfast lunch and dinner, [facility] breakfast lunch and dinner potassium No Velásquez Noam 20 mEq, Memoria chloride 3-04 Akmal 100 mL, l 14:00: Route: [place] 00 IVPB, Drug form: INJ, Q2H, Start date: 08/23/11 8:00:00, Duration: 2 doses or times, Stop date: 08/23/11 10:00:00 calcium 2011-0 No Velásquez Noam 1 gm, Mem oria chloride 3-04 Akmal Route: l 13:28: IVPB, [place] 00 ONCE, Priority: STAT, Start date: 08/23/11 7:28:00, Stop date: 08/23/11 7:28:00 potassium No Velásquez Noam 40 mEq, Memoria chloride 3-04 Akmal Route: IV, l 12:29: ONCE, Vin 00 Start date: 08/23/11 6:29:00, Stop date: 08/23/11 6:29:00 potassium 2012-0 No Velásquez Noam 60 mEq, 3 Memoria chloride 20 3-04 Akmal tab, l mEq oral 12:27: Route: PO, Her braden tablet, 00 Drug form: extended ERTAB, release ONCE, Start date: 08/23/11 6:27:00, Stop date: 08/23/11 6:27:00 magnesium 2011-0 No Velásquez Noam 2 gm, 50 Memoria sulfate 3-04 Akmal mL, Route: l 12:26: IVPB, Drug [place] form: INJ, ONCE, Total dose = 2 gm, Start date: 08/23/11 6:26:00, Duration: 1 doses or times, Stop date: 08/23/11 6:26:00 magnesium 2011-0 No [place] 2 gm, 50 Me moria sulfate 3-03 Rodriguez mL, Route: l 16:26: Ahmed IVPB, Drug Jake n form: INJ, ONCE, Total dose = 2 gm, Start date: 08/22/11 10:26:00, Duration: 1 doses or times, Stop date: 08/22/11 10:26:00 calcium 2011-0 No [place] 1,000 mg, Mem oria gluconate 3-03 Rodriguez 10 mL, l 16:25: Ahmed Route: Vin 00 IVPB, ONCE, Start date: 08/22/11 10:25:00, Stop date: 08/22/11 10:25:00 potassium 2011-0 No Velásquez Noam 40 mEq, 2 Memoria chloride 20 3-03 Akmal tab, l mEq oral 15:00: Route: PO, Her braden tablet, 00 Drug form: extended ERTAB, release Daily, Start date: 08/22/11 9:00:00, Duration: 30 day, Stop date: 08/22/11 12:00:00 magnesium 2011-0 No Velásquez Noam 2 gm, 50 Memoria sulfate 3-03 Akmal mL, Route: l 13:26: IVPB, Drug [place] form: INJ, ONCE, Total dose = 2 gm, Start date: 08/22/11 7:26:00, Duration: 1 doses or times, Stop date: 08/22/11 7:26:00 Geodon 2011-0 No Yury 120 mg, 3 Mem oria 3-03 Gato cap, l 03:00: Rivero Route: PO, H erm 00 Drug form: CAP, Bedtime, Start date: 08/21/11 21:00:00, Duration: 30 day, Stop date: 09/19/11 21:00:00 lisinopril 2011-0 No Yury 10 mg, 1 Memoria 3-02 Gato tab, l 20:06: Rivero Route: PO, H erm Drug form: TAB, ONCE, Start date: 08/21/11 14:06:00, Stop date: 08/21/11 14:06:00 potassium 2011-0 No Yury 20 mEq, Me moria chloride 3-02 Gato 100 mL, l 15:12: Rivero Route: Nidia nn 00 IVPB, Drug form: INJ, ONCE, Start date: 08/21/11 9:12:00, Stop date: 08/21/11 9:12:00 lisinopril 2011-0 No Velásquez Noam 40 mg, 2 Memoria 3-02 Akmal tab, l 15:00: Route: PO, [place] 00 Drug form: TAB, Daily, Start date: [...] l 03:00: Rivero Route: PO, H erm 00 Drug form: CAP, ONCE, Start date: 08/20/11 21:00:00, Stop date: 08/20/11 21:00:00 Cogentin 2011-0 No Yury 1 mg, 1 Mem oria 3-02 Gato tab, l 03:00: Rivero Route: PO, H ermann 00 Drug form: TAB, Q12H, Start date: 08/20/11 21:00:00, Duration: 30 day, Stop date: 09/19/11 9:00:00 Phenergan 2011-0 No Yury 6.25 mg, M emoria 3-01 Gato 0.25 mL, l 21:41: Rivero Route: Nidia nn 00 IVPB, Drug form: INJ, Q6H, PRN Nausea & Vomiting, Start date: 08/20/11 15:41:00, Stop date: 09/19/11 15:40:00 Compazine 2011- No [place] 5 mg, 1 Mem oria 3- Rodriguez tab, l 20:30: Ahmed Route: PO, [...] 2011-0 No Yury 10 unit, Mem oria [employer] 3- Gato Route: l H 16:00: Rivero SUB-Q, Nidia nn 00 ONCE, Start date: 08/20/11 10:00:00, Stop date: 08/20/11 10:00:00 trazodone 2011- Yes 200 mg, 2 Mem oria 100 mg oral 3-01 tab, PO, l tablet 15:37: Bedtime, Vin 27 90 tab, Substituti on Allowed, TAB benztropine Yes 1 mg, 1 Mem oria 1 mg oral 3-01 tab, PO, l tablet 15:35: BID, 60 [place] 25 tab, Substituti on Allowed, TAB Geodon 60 Yes 120 mg, 2 Mem oria mg oral 3- cap, PO, l capsule 15:35: Bedtime, Jake n 12 60 cap, Substituti on Allowed, CAP insulin No Yury 10 unit, Mem oria isophane-S[employer]IOR [employer]NER 3- Gato Route: l H 15:00: Rivero SUB-Q, Nidia nn 00 Q12H, Start date: 08/20/11 9:00:00, Duration: 30 day, Stop date: 09/18/11 21:00:00 Geodon 2011- No Yury 60 mg, 3 Mendoza janice 3- Gato cap, l 15:00: Rivero Route: PO, H erm Drug form: CAP, BID, Start date: 08/20/11 9:00:00, Duration: 30 day, Stop date: 09/18/11 17:00:00 Effexor XR No Yury 75 mg, 1 Memoria - Gato cap, l 15:00: Rivero Route: PO, H erm Drug form: ERCAP, Daily, Start date: 08/20/11 9:00:00, Duration: 30 day, Stop date: 09/18/11 9:00:00 potassium 2011- No Yury 15 mmol, 5 Memoria phosphate 3- Gato mL, Route: l 14:30: Rivero IV, ONCE, He rmann 00 Start date: 08/20/11 8:30:00, Stop date: 08/20/11 8:30:00 potassium 2011- No Yury 20 mEq, Me moria chloride 3- Gato 100 mL, l 14:00: Rivero Route: Nidia nn 00 IVPB, Drug form: INJ, Q2H, Total dose = 80 mEq, Start date: 08/20/11 8:00:00, Duration: 4 doses or times, Stop date: 08/20/11 14:00:00 potassium 2011- No Yury 15 mmol, M emoria phosphate 3- Gato Route: l 12:47: Rivero IVPB, PRN, H erm PRN Abnormal Lab Result, Start date: 08/20/11 6:47:00, Duration: 30 day, Stop date: 09/19/11 7:46:00 Insulin 2011-0 No Yury 6 unit, Mendoza janice regular - Gato 0.06 mL, l 09:38: Rivero Route: Nidia nn SUB-Q, Drug form: SOLN, ONCE, Start date: 08/20/11 3:38:00, Stop date: 08/20/11 3:38:00 Insulin 2011-0 No Velásquez Noam 10 unit, Memoria regular - Akmal SUB-Q, l 09:28: BID, [place] 23 Substituti on Allowed insulin 2011- No 10 unit, Memori a isophane-S[employer]NER 3- SUB-Q, l H 09:26: BID, Vin 18 Substituti on Allowed NS 1,000 mL No Velásquez Noam 1,000 mL, Memoria 08-19 Akmal Rate: 150 l 09:06: ml/hr, [place] 00 Infuse over: 6.7 hr, Route: IV, Total Volume: 1,000, Start date: 08/20/11 3:06:00, Duration: 30 day, Stop date: 09/19/11 3:05:00 insulin 2011- No Yury 3 unit, Mendoza janice aspart - Gato 0.03 mL, l 09:06: Rivero Route: Nidia nn SUB-Q, Drug form: SOLN, Bedtime, PRN Blood Glucose Results, Start date: 08/20/11 3:06:00, Duration: 30 day, Stop date: 09/19/11 3:05:00 enoxaparin No Yury 40 mg, 0.4 Memoria 3- Gato mL, Route: l 09:00: Rivero SUB-Q, Nidia nn Drug form: INJ, Daily, Priority: Routine, Start date: 08/20/11 3:00:00, Duration: 30 day, Stop date: 09/18/11 9:00:00 insulin 2011- No Yury 18 unit, Mem oria isophane-[employer]NER 3-01 Gato 0.18 mL, l H 08:58: Rivero Route: Nidia nn 00 SUB-Q, Drug form: INJ, Q12H, Start date: 08/20/11 2:58:00, Stop date: 09/18/11 21:00:00 insulin No Yury 2 unit, Mendoza janice aspart 08-19 Gato 0.02 mL, l 08:48: Rivero Route: Nidia nn 00 SUB-Q, Drug form: SOLN, TID-Before Meals, PRN Blood Glucose Results, Start date: 08/20/11 2:48:00, Duration: 30 day, Stop date: 09/19/11 2:47:00 glucagon No Yury 1 mg, Memor ia 08-19 [...] Route: l 08:48: Rivero SUB-Q, Nidia nn Bedtime, PRN Blood Glucose Results, Start date: 08/20/11 2:48:00, Duration: 30 day, Stop date: 09/19/11 2:47:00 Dextrose No Yury 25 gm, 50 M emoria 50% Syringe 08-19 Gato ml, Route: l 08:46: Rivero IVP, Drug He rm Form: INJ, PRN, PRN Blood Glucose Results, Start date: 08/20/11 2:46:00, Duration: 30 day, Stop date: 09/19/11 3:45:00 ondansetron No Hughes-Jason 4 mg, M emoria 08-19 Harris Route: l 07:42: Dawson IVP, Drug Herm naeem 00 Pu form: INJ, ONCE, Priority: STAT, Start date: 08/20/11 1:42:00, Stop date: 08/20/11 1:42:00 GI cocktail 2011- No Hughes-Jason 30 ml, Memoria 08-19 Harris Route: PO, l 05:12: Drug Form: Her braden 00 Pu SUSP, ONCE, STAT, Start date: 08/19/11 23:12:00, Stop date: 08/19/11 23:12:00 ondansetron No Hughes-Jason 4 mg, M emoria 08-19 Harris Route: PO, l 05:10: Drug form: Her braden 00 Pu TABDIS, ONCE, Priority: STAT, Start date: 08/19/11 23:10:00, Stop date: 08/19/11 23:10:00 Lactated No Hughes-Jason 1,000 mL, Memoria Ringers 08-19 Harris Rate: l (Bolus) IV 05:10: Dawson 1,000 He rmann 1000 mL 00 Pu ml/hr, Infuse over: 1 hr, Route: IV, Total Volume: 1,000, Bolus Dose, Priority: STAT, Start date: 08/19/11 23:10:00, Duration: 1 doses or times, Stop date: 08/20/11 0:09:00 Insulin No Hughes-Jason 7 unit, Mem oria regular 08-19 Harris 0.07 mL, l 04:15: Route: [place] 00 Pu SUB-Q, Drug form: SOLN, ONCE, Priority: STAT, Start date: 08/19/11 22:15:00, Stop date: 08/19/11 22:15:00 Geodon 60 No Yury 60 mg, 1 M emoria mg oral 2-29 Gato cap, PO, l capsule 23:24: Rivero BID, 180 [place] 43 cap, Substituti on Allowed, CAP trazodone No 300 mg, 1 Mem oria 300 mg oral 2-29 tab, PO, l tablet 23:23: Bedtime, [place] 58 15 tab, Substituti on Allowed, TAB Effexor XR Yes Yury 75 mg, 1 Memoria 75 mg oral 2-29 Gato cap, PO, l capsule, 23:22: Rivero Daily, 30 Vin extended 24 cap, release Substituti on Allowed Lactated No Yury 1,000 mL, M emoria Ringers IV Gato Rate: 250 l 1,000 mL 23:03: Rivero ml/hr, H ermann 00 Infuse over: 4 hr, Route: IV, Total Volume: 1,000, Priority: STAT, Start date: 08/19/11 17:03:00, Duration: 30 day, Stop date: 09/18/11 17:02:00 Sodium No Yury 100 mL, Memor ia Chloride [...] Wong Route: IV, l 21:57: Pooja ONCE, Vin 00 Start date: 08/19/11 15:57:00, Stop date: 08/19/11 15:57:00 Lactated 2011-0 No William 1,000 mL, Me moria Ringers Rate: l (Bolus) IV 21:12: Pooja 1,000 Herm naeem 1000 mL 00 ml/hr, Infuse over: 1 hr, Route: IV, Total Volume: 1,000, Bolus Dose, Priority: STAT, Start date: 08/19/11 15:12:00, Duration: 1 doses or times, Stop date: 08/19/11 16:11:00 Vital Signs Vital Name Observation Time Observation Value Comments Source Systolic (mm Hg) 2016-07-30 14:00:00 Mendoza rial [place] Diastolic (mm Hg) 2016-07-30 14:00:00 Mem orial [place] Respitory Rate 2016-07-30 14:00:00 Memori al [place] Heart Rate 2016-07-30 14:00:00 Memorial Vin Temperature Oral (F) 2016-07-30 14:00:00 97.4 F [facility] [place] Systolic (mm Hg) 2016-07-30 10:45:00 Mendoza rial Vin Diastolic (mm Hg) 2016-07-30 10:45:00 Mem orial Vin Heart Rate 2016-07-30 10:45:00 [facility] [place] Temperature Oral (F) 2016-07-30 10:45:00 97.2 F [facility] [place] Respitory Rate 2016-07-30 10:45:00 Memori al [place] Heart Rate 2016-07-30 06:35:00 [facility] Vin Temperature Oral (F) 2016-07-30 06:35:00 97.0 F [facility] [place] Respitory Rate 2016-07-30 06:35:00 Memori al Vin Systolic (mm Hg) 2016-07-30 06:35:00 Mendoza rial Vin Diastolic (mm Hg) 2016-07-30 06:35:00 Mem orial [place] Weight 2016-07-24 02:13:00 [facility] Vin BMI Calculated 2016-07-24 02:13:00 Memori al [place] Height 2016-07-24 02:13:00 160.02 cm [facility] [place] Respitory Rate 2016-06-15 15:00:00 Memori al Vin Systolic (mm Hg) 2016-06-15 15:00:00 Mendoza rial Vin Diastolic (mm Hg) 2016-06-15 15:00:00 Mem orial Vin Respitory Rate 2016-06-15 14:00:00 Memori al Vin Systolic (mm Hg) 2016-06-15 14:00:00 Mendoza rial [place] Diastolic (mm Hg) 2016-06-15 14:00:00 Mem orial Vin Respitory Rate 2016-06-15 13:29:00 Memori al Vin Systolic (mm Hg) 2016-06-15 13:29:00 Mendoza rial [place] Diastolic (mm Hg) 2016-06-15 13:29:00 Mem orial [place] Temperature Oral (F) 2016-06-14 10:56:00 97.1 F [facility] Vin Temperature Oral (F) 2016-06-14 06:55:00 97.1 F [facility] [place] Temperature Oral (F) 2016-06-12 10:00:00 96.8 F [facility] [place] Weight 2016-06-11 04:25:00 [facility] [place] Height 2016-06-11 04:25:00 160.02 cm [facility] [place] BMI Calculated 2016-06-11 04:25:00 Memori al [place] Heart Rate 2016-06-11 02:04:00 [facility] Vin Heart Rate 2016-06-11 00:00:00 [facility] [place] Heart Rate 2016-06-10 20:30:00 [facility] Vin Weight 2016-06-10 16:04:00 [facility] Vin BMI Calculated 2016-06-10 16:04:00 Memori al Vin Height 2016-06-10 16:04:00 160.02 cm [facility] Vin Temperature Oral (F) 2014-06-26 15:12:00 98.0 F [facility] [place] Systolic (mm Hg) 2014-06-26 15:12:00 Mendoza rial Vin Heart Rate 2014-06-26 15:12:00 [facility] Vin Diastolic (mm Hg) 2014-06-26 15:12:00 Mem orial [place] Respitory Rate 2014-06-26 15:12:00 Memori al Vin Systolic (mm Hg) 2014-06-26 13:53:00 Mendoza rial [place] Diastolic (mm Hg) 2014-06-26 13:53:00 Mem orial Vin Respitory Rate 2014-06-26 13:53:00 Memori al Vin Temperature Oral (F) 2014-06-26 13:53:00 98.0 F [facility] [place] Temperature Oral (F) 2014-06-26 12:37:00 98.2 F [facility] [place] Respitory Rate 2014-06-26 12:37:00 Memori al Vin Systolic (mm Hg) 2014-06-26 12:37:00 Mendoza rial Vin Diastolic (mm Hg) 2014-06-26 12:37:00 Mem orial [place] Heart Rate 2014-06-26 09:21:00 [facility] [place] Heart Rate 2014-06-26 06:08:00 [facility] Vin Height 2014-06-26 05:35:00 154.94 cm [facility] [place] Weight 2014-06-26 05:35:00 [facility] Vin BMI Calculated 2014-06-26 05:35:00 Memori al [place] Respitory Rate 2013-04-15 06:10:00 Memori al [place] Diastolic (mm Hg) 2013-04-15 06:10:00 Mem orial Vin Heart Rate 2013-04-15 06:10:00 [facility] [place] Systolic (mm Hg) 2013-04-15 06:10:00 Mendoza rial Vin Temperature Oral (F) 2013-04-15 06:10:00 98.7 F [facility] Vin Respitory Rate 2013-04-15 05:37:00 Memori al Vin Diastolic (mm Hg) 2013-04-15 05:37:00 Mem orial [place] Systolic (mm Hg) 2013-04-15 05:37:00 Mendoza rial Vin Temperature Oral (F) 2013-04-15 05:37:00 98.2 F [facility] [place] Heart Rate 2013-04-15 05:37:00 [facility] [place] Height 2013-04-15 02:06:00 160.02 cm [facility] [place] Weight 2013-04-15 02:06:00 [facility] Vin Temperature Oral (F) 2013-04-15 02:06:00 98.6 F [facility] [place] Respitory Rate 2013-04-15 02:06:00 Memori al [place] Heart Rate 2013-04-15 02:06:00 [facility] [place] Diastolic (mm Hg) 2013-04-15 02:06:00 Mem orial [place] Systolic (mm Hg) 2013-04-15 02:06:00 Mendoza rial [place] Weight 2012-03-14 21:33:00 [facility] [place] Systolic (mm Hg) 2011-12-01 00:33:00 Mendoza rial [place] Respitory Rate 2011-12-01 00:33:00 Memori al Vin Heart Rate 2011-12-01 00:33:00 [facility] Vin Diastolic (mm Hg) 2011-12-01 00:33:00 Mem orial [place] Temperature Oral (F) 2011-12-01 00:33:00 99.6 F [facility] Vin Diastolic (mm Hg) 2011-11-30 21:00:00 Mem orial [place] Heart Rate 2011-11-30 21:00:00 [facility] [place] Respitory Rate 2011-11-30 21:00:00 Memori al [place] Systolic (mm Hg) 2011-11-30 21:00:00 Mendoza rial [place] Temperature Oral (F) 2011-11-30 21:00:00 99.8 F [facility] [place] Respitory Rate 2011-11-30 16:30:00 Memori al Vin Systolic (mm Hg) 2011-11-30 16:30:00 Mendoza rial [place] Diastolic (mm Hg) 2011-11-30 16:30:00 Mem orial [place] Heart Rate 2011-11-30 16:30:00 [facility] Vin Temperature Oral (F) 2011-11-30 16:30:00 99.8 F [facility] [place] Weight 2011-11-29 11:40:00 [facility] Vin Height 2011-11-29 11:40:00 157.48 cm [facility] [place] Weight 2011-11-28 17:16:00 [facility] [place] Weight 2011-09-18 13:30:00 [facility] [place] Height 2011-09-18 13:30:00 154.94 cm [facility] Vin Heart Rate 2011-09-09 13:31:00 [facility] [place] Systolic (mm Hg) 2011-09-09 13:02:00 Mendoza rial [place] Diastolic (mm Hg) 2011-09-09 13:02:00 Mem orial [place] Respitory Rate 2011-09-09 13:02:00 Memori al [place] Temperature Oral (F) 2011-09-09 13:02:00 97.5 F [facility] Vin Diastolic (mm Hg) 2011-09-09 08:00:00 Mem orial Vin Heart Rate 2011-09-09 08:00:00 [facility] [place] Temperature Oral (F) 2011-09-09 08:00:00 98.6 F [facility] Vin Respitory Rate 2011-09-09 08:00:00 Memori al Vin Systolic (mm Hg) 2011-09-09 08:00:00 Mendoza rial [place] Respitory Rate 2011-09-09 04:55:00 Memori al [place] Diastolic (mm Hg) 2011-09-09 04:55:00 Mem orial Vin Systolic (mm Hg) 2011-09-09 04:55:00 Mendoza rial [place] Heart Rate 2011-09-09 04:55:00 [facility] Vin Temperature Oral (F) 2011-09-09 00:55:00 98.7 F [facility] [place] Weight 2011-09-01 19:59:00 [facility] [place] Height 2011-09-01 19:59:00 154.94 cm [facility] [place] Height 2011-09-01 07:01:00 154.94 cm [facility] [place] Weight 2011-09-01 07:01:00 [facility] Vin Respitory Rate 2011-08-23 18:00:00 Memori al Vin Heart Rate 2011-08-23 18:00:00 [facility] [place] Systolic (mm Hg) 2011-08-23 18:00:00 Mendoza rial Vin Diastolic (mm Hg) 2011-08-23 18:00:00 Mem orial [place] Temperature Oral (F) 2011-08-23 18:00:00 97.7 F [facility] Vin Heart Rate 2011-08-23 14:24:00 [facility] Vin Temperature Oral (F) 2011-08-23 14:24:00 98.2 F [facility] [place] Diastolic (mm Hg) 2011-08-23 14:24:00 Mem orial [place] Systolic (mm Hg) 2011-08-23 14:24:00 Mendoza rial Vin Respitory Rate 2011-08-23 14:24:00 Memori al Vin Systolic (mm Hg) 2011-08-23 11:15:00 Mendoza rial [place] Diastolic (mm Hg) 2011-08-23 11:15:00 Mem orial [place] Temperature Oral (F) 2011-08-23 11:00:00 98.3 F [facility] [place] Heart Rate 2011-08-23 11:00:00 [facility] [place] Respitory Rate 2011-08-22 22:00:00 Memori al [place] Height 2011-08-20 09:12:00 154.94 cm [facility] [place] Weight 2011-08-20 09:12:00 [facility] [place] Height 2011-08-19 20:28:00 154.94 cm [facility] [place] Weight 2011-08-19 20:28:00 [facility] Vin Procedures Procedure Date / Time Performed Performing Clinician [facility] e Emergency department visit 2013-04-15 05:00:00 M [facility] Vin for the evaluation and management of a patient, which requires these 3 kamara components within the constraints imposed by the urgency of the patient's clinical condition and/or mental status: A comprehensive history; A comprehensi Injection or Infusion of 2013-04-15 05:00:00 Mem orikatya Banuelos Other Therapeutic or Prophylactic Substance Intravenous infusion, 2013-04-15 05:00:00 Brandon al [place] hydration; each additional hour (List separately in addition to code for primary procedure) Therapeutic, prophylactic, 2013-04-15 05:00:00 M [facility]orial Vin or diagnostic injection (specify substance or drug); each additional sequential intravenous push of a new substance/drug (List separately in addition to code for primary procedure) Therapeutic, prophylactic, 2013-04-15 05:00:00 M [facility]orial Vin or diagnostic injection (specify substance or drug); intravenous push, single or initial substance/drug section [facility] Start End Encounter Admission Attending Care Care Encounter Source Date/Time Date/Time Type Type Clinicians Facility Department ID 2020-05-28 2020-05-28 Laboratory Pc, Adc [facility] [id number] 08::11 08:48:06 Only Echo Room 1 [place] [facility] [id number] [facility] [id number] [place] [id number] nal 059 [facility] 2020-04-25 2020-04-25 Office Marshall [facility] [id number] 10:07:58 10:48:50 Visit Oz DoshiJose FClaudiaJose F Sims [id number] [place] [id number] 059 [facility] 2020-01-25 2020-01-31 Inpatient 1 Rei Waldron [facility] GPY [id number] [facility] 21:31:00 18:15:00 Rei Waldron 2016-07-23 2016-07-30 Outpatient Yaquelin [facility] [id number] 20:04:00 10:20:00 Luna 10 2016-06-10 2016-06-15 Outpatient Franck [facility] [id number] 10:02:00 12:23:00 Joe Yan 09 2014-06-25 2014-06-26 Outpatient Courtney ANA IE [id number] 23:25:00 09:14:00 Atul 08 Cem 2013-04-14 2013-04-15 Outpatient IE IE [id number] Memoria 21:04:00 01:45:00 07 [facility] 2013-04-14 2013-04-15 Outpatient IE IE [id number] Memoria 21:04:00 01:45:00 07 [facility] 2013-04-14 2013-04-15 Outpatient IE IE [id number] Memoria 21:04:00 01:45:00 07 [facility] 2013-04-14 2013-04-15 [id number] Memoria 21:04:00 01:45:00 07 [facility] 2013-04-14 2013-04-15 [facility] [id number] Memoria 21:04:00 01:45:00 07 [facility] Results Test Description Test Time Test Comments [...] the main Lab for analysi s. Urine [id number] 11:32:13 Test Item Value Reference Range Interpretation [...] Escherichia coli C Urine Added by [email or web address] [id number] 07:52:10 Test Item Value Reference Range Interpretation Comments Glucose POC (test 160 mg/dL 70-115 H If you con lens block gauger your code = Glucose POC) patient critically ill, the Merlin-Accu Check Infrom II meter should not be used for Glucose determination. Draw a venous Glucose and send to the main Lab for analysis. POC [id number] 19:32:05 Test Item Value Reference Range Interpretation Comments Glucose POC (test 184 mg/dL 70-115 H If you con lens block gauger your code = Glucose POC) patient critically ill, the Merlin-Accu Check Infrom II meter should not be used for Glucose determination. Draw a venous Glucose and send to the main Lab for analysis. POC [id number] 17:16:35 Test Item Value Reference Range Interpretation Comments Glucose POC (test 281 mg/dL 70-115 H Notify RN or MDIf you code = Glucose POC) consider your patient critically ill, the Merlin-Accu Chec k Infrom II meter should not be used for Glucos e determination. Draw a venous Glucose and send to the main Lab for analysis. POC [id number] 12:00:38 Test Item Value Reference Range Interpretation Comments Glucose POC (test 138 mg/dL 70-115 H Notify RN or MDIf you code = Glucose POC) consider your patient critically ill, the Merlin-Accu Chec k Infrom II meter should not be used for Glucos e determination. Draw a venous Glucose and send to the main Lab for analysis. POC [id number] 07:41:32 Test Item Value Reference Range Interpretation Comments Glucose POC (test 206 mg/dL 70-115 H Notify RN or MDIf you code = Glucose POC) consider your patient critically ill, the Merlin-Accu Chec k Infrom II meter should not be used for Glucos e determination. Draw a venous Glucose and send to the main Lab for analysis. Urinalysis [id number] 21:07:21 Test Item Value Reference Range Interpretation Comments UA WBC (test code = UA WBC) TNTC 0-5 A UA RBC (test code = UA RBC) 6-10 0-5 A UA Bacteria (test code = UA Bacteria) Profuse A UA Squam Epithelial (test code = UA 6-10 A Squam Epithelial) Urinalysis with Culture, if [id number] 20:35:14 Test Item Value Reference Range Interpretation [...] Micro Indicated Not Indicated A Ind?) POC [id number] 19:06:34 Test Item Value Reference Range Interpretation Comments Glucose POC (test 207 mg/dL 70-115 H If you con lens block gauger your code = Glucose POC) patient critically ill, the Merlin-Accu Check Infrom II meter should not be used for Glucose determination. Draw a venous Glucose and send to the main Lab for analysis. POC [id number] 17:12:03 Test Item Value Reference Range Interpretation Comments Glucose POC (test 173 mg/dL 70-115 H Notify RN or MDIf you code = Glucose POC) consider your patient critically ill, the Merlin-Accu Chec k Infrom II meter should not be used for Glucos e determination. Draw a venous Glucose and send to the main Lab for analysis. POC [id number] 11:58:01 Test Item Value Reference Range Interpretation Comments Glucose POC (test 289 mg/dL 70-115 H Notify RN or MDIf you code = Glucose POC) consider your patient critically ill, the Merlin-Accu Chec k Infrom II meter should not be used for Glucos e determination. Draw a venous Glucose and send to the main Lab for analysis. POC [id number] 08:19:37 Test Item Value Reference Range Interpretation Comments Glucose POC (test 201 mg/dL 70-115 H Notify RN or MDIf you code = Glucose POC) consider your patient critically ill, the Merlin-Accu Chec k Infrom II meter should not be used for Glucos e determination. Draw a venous Glucose and send to the main Lab for analysis. POC [id number] 20:37:35 Test Item Value Reference Range Interpretation Comments Glucose POC (test 272 mg/dL 70-115 H If you con lens block gauger your code = Glucose POC) patient critically ill, the Merlin-Accu Check Infrom II meter should not be used for Glucose determination. Draw a venous Glucose and send to the main Lab for analysis. POC [id number] 17:23:05 Test Item Value Reference Range Interpretation Comments Glucose POC (test 229 mg/dL 70-115 H If you con lens block gauger your code = Glucose POC) patient critically ill, the Merlin-Accu Check Infrom II meter should not be used for Glucose determination. Draw a venous Glucose and send to the main Lab for analysis. POC [id number] 12:01:01 Test Item Value Reference Range Interpretation Comments Glucose POC (test 155 mg/dL 70-115 H If you con lens block gauger your code = Glucose POC) patient critically ill, the Merlin-Accu Check Infrom II meter should not be used for Glucose determination. Draw a venous Glucose and send to the main Lab for analysis. POC [id number] 08:07:32 Test Item Value Reference Range Interpretation Comments Glucose POC (test 248 mg/dL 70-115 H If you con lens block gauger your code = Glucose POC) patient critically ill, the Merlin-Accu Check Infrom II meter should not be used for Glucose determination. Draw a venous Glucose and send to the main Lab for analysis. IG [id number] 06:50:39 Test Item Value Reference Range Interpretation Comments IG (test code = IG) 0.7 % 0.0-5.0 IG Abs (test code = IG Abs) 0 x10 N Complete Blood Count with [id number] 06:50:38 Test Item Value Reference Range Interpretation [...] code = IPF) 0 % N Automated [id number] 06:50:38 Test Item Value Reference Range Interpretation Comments Neutro Auto (test code = Neutro 50.3 % 36.0-70.0 Auto) Lymph Auto (test code = Lymph Auto) 38.6 % 12.0-44.0 [place] Auto (test code = [place] Auto) 7.3 % 0.0-11.0 Eos, Auto (test code = Eos, Auto) 2.4 % 0.0-7.0 Basophil Auto (test code = Basophil 0.7 % 0.0-2.0 Auto) Neutro Absolute (test code = Neutro 3.0 x10 1.6-7.4 Absolute) Lymph Absolute (test code = Lymph 2.28 x10 .50-4.60 Absolute) [place] Absolute (test code = [place] .43 x10 .00-1.20 Absolute) Eos Absolute (test code = Eos 0.14 x10 0.00-0.74 Absolute) Baso Absolute (test code = Baso 0.04 x10 0.00-0.21 Absolute) Basic Metabolic [id number] 05:38:20 Test Item Value Reference Range Interpretation [...] = Lipemia) 0 mg/dL 8-11 Basic Metabolic [id number] 05:38:20 Test Item Value Reference Range Interpretation [...] = 0 mg/dL 8-11 Lipemia) Basic Metabolic [id number] 05:38:20 Test Item Value Reference Range Interpretation [...] code = 0 mg/dL 8-11 Lipemia) POC [id number] 20:28:33 Test Item Value Reference Range Interpretation Comments Glucose POC (test 169 mg/dL 70-115 H If you con lens block gauger your code = Glucose POC) patient critically ill, the Merlin-Accu Check Infrom II meter should not be used for Glucose determination. Draw a venous Glucose and send to the main Lab for analysis. POC [id number] 16:39:30 Test Item Value Reference Range Interpretation Comments Glucose POC (test 103 mg/dL 70-115 If you con lens block gauger your code = Glucose POC) patient critically ill, the Merlin-Accu Check Infrom II meter should not be used for Glucose determination. Draw a venous Glucose and send to the main Lab for analysis. RPR [id number] 12:08:56 Test Item Value Reference Range Interpretation Comments RPR Qual (test code = RPR Qual) Non-Reactive Non-Reactive Reactive Control (test code = Reactive Reactive Control) Weak Reactive Control (test Weak Reactive code = Weak Reactive Control) Non-Reactive Control (test code Non-Reactive = Non-Reactive Control) Lot # (test code = Lot #) [id number] N Expiration Dt (test code = 03-20-2021 N Expiration Dt) POC [id number] 11:52:31 Test Item Value Reference Range Interpretation Comments Glucose POC (test 250 mg/dL 70-115 H If you con lens block gauger your code = Glucose POC) patient critically ill, the Merlin-Accu Check Infrom II meter should not be used for Glucose determination. Draw a venous Glucose and send to the main Lab for analysis. POC [id number] 07:55:29 Test Item Value Reference Range Interpretation Comments Glucose POC (test 205 mg/dL 70-115 H If you con lens block gauger your code = Glucose POC) patient critically ill, the Merlin-Accu Check Infrom II meter should not be used for Glucose determination. Draw a venous Glucose and send to the main Lab for analysis. Lipid [id number] 05:46:04 Test Item Value Reference Range Interpretation [...] LDL/HDL Ratio=L DL Calc/HDL Chol Thyroid Stimulating [id number] 05:46:04 Test Item Value Reference Range Interpretation Comments TSH (test code = TSH) 3.274 mcIU/mL 0.550-4.780 Hemoglobin [id number] 05:41:08 Test Item Value Reference Range Interpretation Comments Hemoglobin A1c (test code 7.6 % 4.0-5.8 H Di abetic >=6.5 = Hemoglobin A1c) %Prediabet es 5.7-6.4 %Normal <5.7 % Hepatitis B Surface [id number] 21:19:36 Test Item Value Reference Range Interpretation Comments Hep Bs Ag (test code = Hep Bs Non-Reactive Non-Reactive Ag) Novel Coronavirus SARS-CoV-2, [id number] 11:16:16 Test Item Value Reference Range Interpretation [...] Emergency Use Authorization." Novel Coronavirus (COVID-19), EMANUEL [id number] 11:11:24TNPTest not sent and performed at [facility].Rapid was perfomed in Microbiology.Wrong covid test was ord ered.Urine [id number] 00:17:49 Test Item Value Reference Range Interpretation [...] Propoxyphene Confirmation wi thin 7 days. Alcohol [id number] 00:17:29 Test Item Value Reference Range Interpretation Comments Ethanol Level 9.0 mg/dL N The pharmacolo gical (test code = response to blo od alcohol Ethanol Level) levels may va ry from individual to i ndividual. The fatal omkar ntration has been report ed to be >400 mg/dl. Comprehensive Metabolic [id number] 00:17:28 Test Item Value Reference Range Interpretation [...] = Lipemia) 0 g/dL 1-2 Comprehensive Metabolic [id number] 00:17:28 Test Item Value Reference Range Interpretation [...] ag e have not been validated by e MDRD study and should be interpreted [...] = 0 g/dL 1-2 Lipemia) Comprehensive Metabolic [id number] 00:17:28 Test Item Value Reference Range Interpretation [...] ag e have not been validated by [facility] MDRD study and should be interpreted wit [...] ag e have not been validated by [facility] MDRD study and should be interpreted wit [...] g/dL 1-2 Lipemia) Complete Blood Count with [id number] 23:26:28 Test Item Value Reference Range Interpretation [...] code = IPF) 0 % N Automated [id number] 23:26:28 Test Item Value Reference Range Interpretation Comments Neutro Auto (test code = Neutro 67.1 % 36.0-70.0 Auto) Lymph Auto (test code = Lymph Auto) 23.3 % 12.0-44.0 [place] Auto (test code = [place] Auto) 5.8 % 0.0-11.0 Eos, Auto (test code = Eos, Auto) 2.3 % 0.0-7.0 Basophil Auto (test code = Basophil 0.8 % 0.0-2.0 Auto) Neutro Absolute (test code = Neutro 6.0 x10 1.6-7.4 Absolute) Lymph Absolute (test code = Lymph 2.10 x10 .50-4.60 Absolute) [place] Absolute (test code = [place] .52 x10 .00-1.20 Absolute) Eos Absolute (test code = Eos 0.21 x10 0.00-0.74 Absolute) Baso Absolute (test code = Baso 0.07 x10 0.00-0.21 Absolute) IG [id number] 23:26:28 Test Item Value Reference Range Interpretation Comments IG (test code = IG) 0.7 % 0.0-5.0 IG Abs (test code = IG Abs) 0 x10 N HERPES VIRUS ANTIBODY, [id number] 21:46:00 Test Item Value Reference Range Interpretation Comments HERPES VIRUS IGM (BEAKER) Negative SE E ATTACHMENT (test code = 1808) BLOOD [id number] 06:00:00 Test Item Value Reference Range Interpretation Comments CULTURE (BEAKER) (test No growth in 5 days code = 1095) BLOOD [id number] 06:00:00 Test Item Value Reference Range Interpretation Comments CULTURE (BEAKER) (test No growth in 5 days code = 1095) POCT-GLUCOSE [id number] 12:11:00 Test Item Value Reference Range Interpretation Comments POC-GLUCOSE METER 154 mg/dL 70-110 H TESTED AT [place] [address] ([facility]) (test code = [facility] Eduin [facility] 1538) [address] POCT-GLUCOSE [id number] 07:53:00 Test Item Value Reference Range Interpretation Comments POC-GLUCOSE METER 87 mg/dL 70-110 TESTED AT [place] [address] ([facility]) (test code = [facility] [id number] 1538) POCT-GLUCOSE [id number] 06:49:00 Test Item Value Reference Range Interpretation Comments POC-GLUCOSE METER 79 mg/dL 70-110 TESTED AT [place] [address] ([facility]) (test code = [facility] [id number] 1538) COMPREHENSIVE METABOLIC [id number] 06:15:00 Test Item Value Reference Range Interpretation Comments TOTAL PROTEIN 5.1 gm/dL 6.0-8.3 L ([facility]) (test code = 770) ALBUMIN ([facility]) 2.2 g/dL 3.5-5.0 L (test code = 1145) ALKALINE PHOSPHATASE 78 U/L 40-150 ([facility]) (test code = 346) BILIRUBIN TOTAL 1.1 [...] S NOT APPLICABLE FOR DIALYSIS PATIEN TS. [id number] 06:11:00 Test Item Value Reference Range Interpretation Comments MAGNESIUM (BEAKER) (test code = 2.1 mg/dL 1.6-2.6 627) HEPATIC FUNCTION [id number] 06:11:00 Test Item Value Reference Range Interpretation [...] 256 U/L 5-34 H 353) ALT (SGPT) ([facility]) (test code = 513 U/L 6-55 H 347) [id number] 05:30:00 Test Item Value Reference Range Interpretation Comments FIBRINOGEN LEVEL ([facility]) (test 368 mg/dl 225-434 code = 658) [id number] 05:30:00 Test Item Value Reference Range Interpretation Comments PARTIAL THROMBOPLASTIN TIME 42.2 seconds 22.5-36.0 H ([facility]) (test code = 760) PROTHROMBIN [id number] 05:29:00 Test Item Value Reference Range Interpretation Comments PROTIME ([facility]) (test code = 14.8 seconds 11.7-14.7 H 759) INR ([facility]) (test code = 370) 1.2 <=5.9 RECOMMENDED COUMADIN/WARFARIN INR THERAPY RANGESSTANDARD DOSE: 2.0 - 3.0 Includes: PROPHYLAXIS forvenous thrombosis, systemic embolization; TREATMENT for venous thrombosis and/or pulmonary embolus.HIGH RISK: Target INR is 2.5-3.5 for patients with mechanical heart valves.POCT-GLUCOSE [id number] 21:09:00 Test Item Value Reference Range Interpretation Comments POC-GLUCOSE METER 178 mg/dL 70-110 H TESTED AT [place] [address] ([facility]) (test code = [place] [facility] 1538) [address] POCT-GLUCOSE [id number] 17:18:00 Test Item Value Reference Range Interpretation Comments POC-GLUCOSE METER 178 mg/dL 70-110 H TESTED AT [place] [address] ([facility]) (test code = [place] [facility] 1538) [address] POCT-GLUCOSE [id number] 13:48:00 Test Item Value Reference Range Interpretation Comments POC-GLUCOSE METER 150 mg/dL 70-110 H TESTED AT [place] [address] ([facility]) (test code = [place] [facility] 1538) [address] FACTOR 5 ACTIVITY (BLEEDING RISK)2017-01-06 10:04:00 Test Item Value Reference Range Interpretation Comments FACTOR V ACTIVITY ([facility]) (test code 90.0 % 60.0-150.0 = 665) Effective 10/24/2013: Reference Range Change-Adult onlyNew: 60.0-150.0 Previous: 50.0-150.0CYTOMEGALOVIRUS ANTIBODY, [id number] 09:42:00 Test Item Value Reference Range Interpretation Comments CYTOMEGALOVIRUS IGM ANTIBODY Negative (BEAKER) (test code = 816) HERPES VIRUS ANTIBODY, [id number] 08:59:00 Test Item Value Reference Range Interpretation Comments 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 G 1807) CYTOMEGALOVIRUS ANTIBODY, [id number] 08:59:00 Test Item Value Reference Range Interpretation Comments CYTOMEGALOVIRUS IGG ANTIBODY Positive (BEAKER) (test code = 790) EBV-VCA ANTIBODY, [id number] 08:59:00 Test Item Value Reference Range Interpretation Comments JASE-WALL VCA IGG (BEAKER) (test Positive code = 983) EBV-VCA ANTIBODY, [id number] 08:59:00 Test Item Value Reference Range Interpretation Comments JASE-WALL VCA IGM (BEAKER) (test Negative code = 984) POCT-GLUCOSE [id number] 07:59:00 Test Item Value Reference Range Interpretation Comments POC-GLUCOSE METER 81 mg/dL 70-110 TESTED AT [facility] 67[address] [facility] (test code = [place] [facility] [id number] [id number]) COMPREHENSIVE METABOLIC [id number] 06:23:00 Test Item Value Reference Range Interpretation [...] S NOT APPLICABLE FOR DIALYSIS PATIEN TS. [id number] 06:17:00 Test Item Value Reference Range Interpretation Comments MAGNESIUM (BEAKER) (test code = 1.8 mg/dL 1.6-2.6 627) HEPATIC FUNCTION [id number] 06:17:00 Test Item Value Reference Range Interpretation [...] code = 779 U/L 6-55 H 347) [id number] 06:00:00 Test Item Value Reference Range Interpretation Comments FIBRINOGEN LEVEL (BEAKER) (test 390 mg/dl 225-434 code = 658) [id number] 06:00:00 Test Item Value Reference Range Interpretation Comments PARTIAL THROMBOPLASTIN TIME 40.2 seconds 22.5-36.0 H (BEAKER) (test code = 760) PROTHROMBIN [id number] 05:59:00 Test Item Value Reference Range Interpretation Comments PROTIME (BEAKER) (test code = 14.6 seconds 11.7-14.7 759) INR ([facility]) (test code = 370) 1.2 <=5.9 RECOMMENDED COUMADIN/WARFARIN INR THERAPY RANGESSTANDARD DOSE: 2.0 - 3.0 Includes: PROPHYLAXIS forvenous thrombosis, systemic embolization; TREATMENT for venous thrombosis and/or pulmonary embolus.HIGH RISK: Target INR is 2.5-3.5 for patients with mechanical heart valves.POCT-GLUCOSE [id number] 21:46:00 Test Item Value Reference Range Interpretation Comments POC-GLUCOSE METER 153 mg/dL 70-110 H TESTED AT [place] [address] ([facility]) (test code = [facility] 1538) [address] POCT-GLUCOSE [id number] 18:47:00 Test Item Value Reference Range Interpretation Comments POC-GLUCOSE METER 181 mg/dL 70-110 H TESTED AT [place] [address] ([facility]) (test code = [facility] 1538) [address] POCT-GLUCOSE [id number] 12:40:00 Test Item Value Reference Range Interpretation Comments POC-GLUCOSE METER 178 mg/dL 70-110 H TESTED AT [place] [address] ([facility]) (test code = [facility] 1538) [address] POCT-GLUCOSE [id number] 07:51:00 Test Item Value Reference Range Interpretation Comments POC-GLUCOSE METER 166 mg/dL 70-110 H TESTED AT [place] [address] ([facility]) (test code = [facility] 1538) [address] COMPREHENSIVE METABOLIC [id number] 03:26:00 Test Item Value Reference Range Interpretation Comments TOTAL PROTEIN 5.2 gm/dL 6.0-8.3 L ([facility]) (test code = 770) ALBUMIN ([facility]) 2.3 g/dL 3.5-5.0 L (test code = 1145) ALKALINE PHOSPHATASE 72 U/L 40-150 ([facility]) (test code = 346) BILIRUBIN TOTAL 2.0 mg/dL 0.2-1.2 H ([facility]) (test code = 377) [facility] (test 140 meq/L 136-145 code = 381) P[facility]ASSIUM [facility] 3.3 meq/L 3.5-5.1 L (test code = [...] S NOT APPLICABLE FOR DIALYSIS PATIEN TS. [id number] 03:22:00 Test Item Value Reference Range Interpretation Comments MAGNESIUM (BEAKER) (test code = 1.4 mg/dL 1.6-2.6 L 627) HEPATIC FUNCTION [id number] 03:22:00 Test Item Value Reference Range Interpretation [...] code = 1009 U/L 6-55 H 347) [id number] 03:12:00 Test Item Value Reference Range Interpretation Comments AMMONIA (BEAKER) (test code = 348) 29 mol/L 18-72 [id number] 03:10:00 Test Item Value Reference Range Interpretation Comments PARTIAL THROMBOPLASTIN TIME 42.3 seconds 22.5-36.0 H (BEAKER) (test code = 760) PROTHROMBIN [id number] 03:09:00 Test Item Value Reference Range Interpretation Comments PROTIME (BEAKER) (test code = 16.4 seconds 11.7-14.7 H 759) INR (BEAKER) (test code = 370) 1.3 <=5.9 RECOMMENDED COUMADIN/WARFARIN INR THERAPY RANGESSTANDARD DOSE: 2.0 - 3.0 Includes: PROPHYLAXIS forvenous thrombosis, systemic embolization; TREATMENT for venous thrombosis and/or pulmonary embolus.HIGH RISK: Target INR is 2.5-3.5 for patients with mechanical heart valves.[id number] 03:09:00 Test Item Value Reference Range Interpretation Comments FIBRINOGEN LEVEL (BEAKER) (test 413 mg/dl 225-434 code = 658) CBC W/PLT COUNT & AUTO [id number] 03:09:00 Test Item Value Reference Range Interpretation [...] L 0.00-0.20 (test code = 417) 0.00POCT-GLUCOSE [id number] 22:33:00 Test Item Value Reference Range Interpretation Comments POC-GLUCOSE METER 230 mg/dL 70-110 H TESTED AT [place] [address] ([facility]) (test code = [facility] 1538) [address] POCT-GLUCOSE [id number] 18:17:00 Test Item Value Reference Range Interpretation Comments POC-GLUCOSE METER 222 mg/dL 70-110 H TESTED AT [place] [address] ([facility]) (test code = [facility] 1538) [address] COMPREHENSIVE METABOLIC [id number] 16:59:00 Test Item Value Reference Range Interpretation [...] PATIEN TS. PERIPHERAL BLOOD SMEAR - PATHOLOGIST [id number] 15:30:00 Test Item Value Reference Range Interpretation Comments RBC MORPHOLOGY Polychromasia (BEAKER) (test code = 2846) RBC MORPHOLOGY Anisocytosis (BEAKER) (test code = 31660) PERIPHERAL SMR REVIEW Cell counts confirmed (BEAKER) (test code = 2640) [id number] Josefina Lara M.D. (BEAKER) (test code = (electronic signature) 3281) PROTHROMBIN [id number] 15:12:00 Test Item Value Reference Range Interpretation [...] Reference Range Interpretation Comments ANTI-NUCLEAR ANTIBODY (IVETTE) ([facility]) Negative Negative (test code = 418) POCT-GLUCOSE [id number] 12:47:00 Test Item Value Reference Range Interpretation Comments POC-GLUCOSE METER 212 mg/dL 70-110 H TESTED AT [facility] 6720 (MADIE) (test code = [place] 1538) [address] [id number] 12:34:00 Test Item Value Reference Range Interpretation Comments RPR SCREEN (MADIE) (test code = Nonreactive Nonreactive 420) CLOSTRIDIUM DIFFICILE TOXIN [id number] 10:12:00 Test Item Value Reference Range Interpretation [...] Reference Range Change-Adult onlyNew: 60.0-150.0 Previous: 50.0-150.0POCT-GLUCOSE [id number] 06:40:00 Test Item Value Reference Range Interpretation Comments POC-GLUCOSE METER 167 mg/dL 70-110 H TESTED AT [facility] 6720 (BEAKER) (test code = [place] 1538) [address] COMPREHENSIVE METABOLIC [id number] 04:08:00 Test Item Value Reference Range Interpretation Comments TOTAL PROTEIN 4.7 gm/dL 6.0-8.3 L (BEAKER) (test code = 770) ALBUMIN (BEAKER) 2.1 g/dL 3.5-5.0 L (test code = [...] ESTIM ATED GFR. Specimen slightly ictericHEPATIC FUNCTION [id number] 04:06:00 Test Item Value Reference Range Interpretation [...] 1091 U/L 6-55 H 347) Specimen slightly [id number] 04:01:00 Test Item Value Reference Range Interpretation Comments FIBRINOGEN LEVEL (BEAKER) (test 379 mg/dl 225-434 code = 658) [id number] 04:01:00 Test Item Value Reference Range Interpretation Comments PARTIAL THROMBOPLASTIN TIME 40.7 seconds 22.5-36.0 H (BEAKER) (test code = 760) PROTHROMBIN [id number] 04:00:00 Test Item Value Reference Range Interpretation [...] L 0.00-0.20 (test code = 417) 0.00POCT-GLUCOSE [id number] 00:19:00 Test Item Value Reference Range Interpretation Comments POC-GLUCOSE METER 159 mg/dL 70-110 H TESTED AT [place] [address] ([facility]) ([facility] 1538) [address] POCT-GLUCOSE [id number] 18:56:00 Test Item Value Reference Range Interpretation Comments POC-GLUCOSE METER 192 mg/dL 70-110 H TESTED AT [facility] 6720 ([facility]) (test code = [facility] Eduin [facility] 1538) [address] COMPREHENSIVE METABOLIC [id number] 16:55:00 Test Item Value Reference Range Interpretation [...] CALCULATE ESTIM ATED GFR. Specimen slightly ictericPROTHROMBIN [id number] 16:37:00 Test Item Value Reference Range Interpretation Comments PROTIME (BEAKER) (test code = 20.9 seconds 11.7-14.7 H 759) INR (BEAKER) (test code = 370) 1.8 <=5.9 RECOMMENDED COUMADIN/WARFARIN INR THERAPY RANGESSTANDARD DOSE: 2.0 - 3.0 Includes: PROPHYLAXIS forvenous thrombosis, systemic embolization; TREATMENT for venous thrombosis and/or pulmonary embolus.HIGH RISK: Target INR is 2.5-3.5 for patients with mechanical heart valves.HEPATITIS B SURFACE [id number] 14:05:00 Test Item Value Reference Range Interpretation Comments HEPATITIS B SURFACE ANTIBODY < mIU/mL <8.0 (BEAKER) (test code = 647) HEPATITIS B CORE ANTIBODY, [id number] 13:43:00 Test Item Value Reference Range Interpretation Comments HEPATITIS B CORE TOTAL ANTIBODY Nonreactive Nonreactive (BEAKER) (test code = 497) BLOOD GAS, [id number] 13:35:00 Test Item Value Reference Range Interpretation [...] code = 1819) 28.0 % URINALYSIS W/ [id number] 13:16:00 Test Item Value Reference Range Interpretation [...] 1584) SOURCE(BEAKER) (test code = Urine, [place] 3759) VITAMIN D, 09-[id number] 13:14:00 Test Item Value Reference Range Interpretation Comments VITAMIN D 25-OH (BEAKER) (test code = < ng/mL 13.0-47.8 L 2764) ALPHA FETOPROTEIN (AFP), TUMOR [id number] 13:06:00 Test Item Value Reference Range Interpretation Comments ALPHA-FETOPROTEIN (BEAKER) (test code < ng/mL <10.0 = 1094) Effective 05/08/2014: Reference Range ChangeNew: <10.0 Previous: 0.0-8.0 HEMOGLOBIN [id number] 13:05:00 Test Item Value Reference Range Interpretation Comments HEMOGLOBIN A1C (BEAKER) (test code = 7.6 % 4.3-6.1 H 368) CARCINOEMBRYONIC ANTIGEN (CEA)2017-01-03 12:59:00 Test Item Value Reference Range Interpretation Comments CARCINOEMBRYONIC ANTIGEN (BEAKER) 2.0 ng/mL 0.0-5.0 (test code = 685) [id number] 12:59:00 Test Item Value Reference Range Interpretation Comments FERRITIN (BEAKER) (test code = 1841 ng/mL 5-275 H 361) Effective 05/08/2014: Reference Range ChangeNew: Male 5-275 Previous: Male 22-322 Female 5-275 Female [id number] 12:58:00 Test Item Value Reference Range Interpretation Comments T4 TOTAL (BEAKER) (test code = 895) 4.5 ug/dL 4.9-11.7 L [id number] 12:58:00 Test Item Value Reference Range Interpretation Comments THYROID STIMULATING HORMONE 1.79 uIU/mL 0.35-4.94 (BEAKER) (test code = 772) [id number] 12:58:00 Test Item Value Reference Range Interpretation Comments T3 TOTAL (BEAKER) (test code = 656) 34 ng/dL 48-159 L Effective 05/08/2014: Reference Range ChangeNew: 48-159 Previous: 60-181 CALCIUM, [id number] 12:47:00 Test Item Value Reference Range Interpretation Comments CALCIUM IONIZED (BEAKER) (test 1.05 mmol/L 1.12-1.27 L code = 698) PH, BLOOD (BEAKER) (test code = 7.43 1810) [id number] 12:42:00 Test Item Value Reference Range Interpretation [...] % 20-55 (test code = 2590) URIC [id number] 12:40:00 Test Item Value Reference Range Interpretation Comments URIC ACID (BEAKER) (test code = 16.0 mg/dL 2.6-7.2 H 773) Specimen slightly ictericLIPID [id number] 12:40:00 Test Item Value Reference Range Interpretation [...] 160-189 Very High >=190 Specimen slightly ictericBILIRUBIN, [id number] 12:40:00 Test Item Value Reference Range Interpretation Comments BILIRUBIN DIRECT (MADIE) (test 2.4 mg/dL 0.1-0.5 H code = 706) GAMMA GLUTAMYL TRANSFERASE (GGT)2017-01-03 12:40:00 Test Item Value Reference Range Interpretation Comments GAMMA GLUTAMYL TRANSFERASE (CHANDNIAKER) 53 U/L 9-64 (test code = 364) Specimen slightly [id number] 12:39:00 Test Item Value Reference Range Interpretation Comments ETHANOL (BEAKER) (test code = 400) < mg/dL <=10 SCREEN, [id number] 12:36:00 Test Item Value Reference Range Interpretation Comments TEST URINE (MADIE) (test Negative code = 583) POCT-GLUCOSE [id number] 12:34:00 Test Item Value Reference Range Interpretation Comments POC-GLUCOSE METER 189 mg/dL 70-110 H TESTED AT [facility] 6720 (MADIE) (test code = [place] 1538) [address] HIV-1 ANTIGEN WITH HIV-1/2 [id number] 11:58:00 Test Item Value Reference Range Interpretation Comments HIV-1 ANTIGEN WITH HIV 1\\T\\2 Nonreactive Nonreactive ANTIBODY (2) (MADIE) (test code = 2586) TROPONIN [id number] 09:44:00 Test Item Value Reference Range Interpretation Comments TROPONIN I (MADIE) (test code = 0.34 ng/mL 0.00-0.03 397) Effective 05/08/2014: Reference Range ChangeNew: 0.00-0.03 [...] Range Interpretation Comments CREATINE KINASE TOTAL (BEAKER) 301 U/L 29-200 H (test code = 380) CREATINE KINASE-MB (BEAKER) (test 5.6 ng/mL 0.0-6.6 code = 750) CREATINE KINASE-MB INDEX (BEAKER) 1.9 % (test code = 395) Effective 05/08/2014: CK-MB Reference Range ChangeNew: 0.0-6.6 Previous: 0.0-4.9CK-MB Reference Range:<6.7 Normal6.7-10.0 Borderline>10.0 AbnormalACETAMINOPHEN [id number] 08:31:00 Test Item Value Reference Range Interpretation Comments ACETAMINOPHEN LEVEL (BEAKER) (test < ug/mL 10.0-30.0 L code = 344) TROPONIN [id number] 05:53:00 Test Item Value Reference Range Interpretation [...] acute neurological disease, and persistent tachyarrhythmia.BASIC METABOLIC [id number] 05:53:00 Test Item Value Reference Range Interpretation [...] TO CALCULA TE ESTIMATED GFR. Specimen slightly [id number] 05:52:00 Test Item Value Reference Range Interpretation Comments PHOSPHORUS (BEAKER) (test code = 5.7 mg/dL 2.3-4.7 H 604) HEPATIC FUNCTION [id number] 05:52:00 Test Item Value Reference Range Interpretation [...] Specimen slightly ictericCREATINE KINASE (CK), TOTAL AND [id number] 05:52:00 Test Item Value Reference Range Interpretation Comments CREATINE KINASE TOTAL (BEAKER) 341 U/L 29-200 H (test code = 380) CREATINE KINASE-MB (BEAKER) (test 5.4 ng/mL 0.0-6.6 code = 750) CREATINE KINASE-MB INDEX (BEAKER) 1.6 % (test code = 395) Effective 05/08/2014: CK-MB Reference Range ChangeNew: 0.0-6.6 Previous: 0.0-4.9CK-MB Reference Range:<6.7 Normal6.7-10.0 Borderline>10.0 AbnormalCBC W/PLT COUNT & AUTO [id number] 05:48:00 Test Item Value Reference Range Interpretation [...] K/ L 0.00-0.20 (test code = 417) [id number] 05:09:00 Test Item Value Reference Range Interpretation Comments FIBRINOGEN LEVEL (BEAKER) (test 427 mg/dl 225-434 code = 658) [id number] 05:09:00 Test Item Value Reference Range Interpretation Comments PARTIAL THROMBOPLASTIN TIME 36.2 seconds 22.5-36.0 H (BEAKER) (test code = 760) PROTHROMBIN [id number] 05:08:00 Test Item Value Reference Range Interpretation Comments PROTIME (BEAKER) (test code = 22.8 seconds 11.7-14.7 H 759) INR (BEAKER) (test code = 370) 2.0 <=5.9 RECOMMENDED COUMADIN/WARFARIN INR THERAPY RANGESSTANDARD DOSE: 2.0 - 3.0 Includes: PROPHYLAXIS forvenous thrombosis, systemic embolization; TREATMENT for venous thrombosis and/or pulmonary embolus.HIGH RISK: Target INR is 2.5-3.5 for patients with mechanical heart valves.HEPATITIS PANEL, [id number] 03:40:00 Test Item Value Reference Range Interpretation Comments HEPATITIS A IGM ANTIBODY (BEAKER) Nonreactive Nonreactive (test code = 498) HEPATITIS B CORE IGM ANTIBODY Nonreactive Nonreactive (BEAKER) (test code = 645) HEPATITIS C ANTIBODY (BEAKER) Nonreactive Nonreactive (test code = 367) HEPATITIS B SURFACE ANTIGEN (2) Nonreactive Nonreactive (BEAKER) (test code = 2585) CREATININE, RANDOM [id number] 03:18:00 Test Item Value Reference Range Interpretation Comments CREATININE URINE (BEAKER) (test 118.7 mg/dL code = 375) Reference Range: No NormalsSODIUM, RANDOM [id number] 03:18:00 Test Item Value Reference Range Interpretation Comments SODIUM URINE (BEAKER) (test code = 60 meq/L 243) Reference Range: No NormalsUREA NITROGEN, RANDOM [id number] 03:18:00 Test Item Value Reference Range Interpretation Comments UREA NITROGEN URINE (BEAKER) (test 303 mg/dL code = 538) Reference Range: No PqpclkjYPQKIDH1001-64-38 03:07:00 Test Item Value Reference Range Interpretation Comments AMMONIA (BEAKER) (test code = 348) 48 mol/L 18-72 I-BYZQH1184-59EAZDA0548-34-01 02:57:00 Test Item Value Reference Range Interpretation [...] within 95-100% range. URINALYSIS W/ REFLEX URINE HOTLNMX2805-15-66 02:53:00 Test Item Value Reference Range Interpretation [...] /LPF = 514) SOURCE(BEAKER) (test code = 1185) ZTDR1099-97-36 02:49:00 Test Item Value Reference Range Interpretation Comments PARTIAL THROMBOPLASTIN TIME 39.4 seconds 22.5-36.0 H (BEAKER) (test code = 760) PROTHROMBIN TIME/OJM9488-76-95 02:48:00 Test Item Value Reference Range Interpretation Comments PROTIME (BEAKER) (test code = 22.0 seconds 11.7-14.7 H 759) INR (BEAKER) (test code = 370) 1.9 <=5.9 RECOMMENDED COUMADIN/WARFARIN INR THERAPY RANGESSTANDARD DOSE: 2.0 - 3.0 Includes: PROPHYLAXIS forvenous thrombosis, systemic embolization; TREATMENT for venous thrombosis and/or pulmonary embolus.HIGH RISK: Target INR is 2.5-3.5 for patients with mechanical heart valves.EHNOVMPOUF1808-58-55 02:48:00 Test Item Value Reference Range Interpretation Comments FIBRINOGEN LEVEL (BEAKER) (test 421 mg/dl 225-434 code = 658) BLOOD GAS, YMWCXO5124-30-42 02:43:00 Test Item Value Reference Range Interpretation [...] 21.0 % CBC W/PLT COUNT & AUTO WXKJINMGDTYA8200-55-64 02:43:00 Test Item Value Reference Range Interpretation [...] code = 417) 0.00LACTIC ACID, VENOUS, WHOLE SKPOA7904-36-42 02:35:00 Test Item Value Reference Range Interpretation Comments LACTATE BLOOD VENOUS (2) (BEAKER) 0.8 mmol/L 0.5-2.2 (test code = 2872) Effective 10/23/2015: Units/Reference Range ChangeNew: 0.5-2.2 mmol/L Previous: 5-20 mg/dLSpecimen slightly fpcjyxoFUEVOUUIRNVM9140-76-77 11:32:0014.6[facility] EiqanxtNHWTKKSAHWMD2294-19-84 11:32:0033[facility] QmhscjbAYNXUPLDRPVJ5590-19-61 11:32:008.3[facility] PoqvstwYQSVSSLDBSWK0790-31-82 11:32:0081[facility] [place] WDVLTEEDEUQD7766-29-64 11:32:001.95[facility] FnvakooNYMRDFQMXIIY3162-80-38 11:32:0055[facility] GftuftzEKGHLNCBLKHA8150-23-13 11:32:0019[facility] [place] MRICHUZDDBKP2831-10-52 11:32:47697Fqiofsqd NxgmakuVBMUHKLOKGVQ2514-96-36 11:32:66771Vgkeskgq RibkgmaQVWLRUCAWMCF1995-78-45 11:32:004.6[facility] KYMDDJCYBB8012-76-55 11:32:0030.4[facility] MvmlezqPAPJEBRPYU2972-97-98 11:32:00 4.5[facility] TnqffjgXRHHSARBXS5970-56-80 11:32:0013.7[facility]annHEMATOLOGY 2016-07-30 11:32:002.6[facility] MhstezpLCMJRXZXRR3451-10-98 11:32:000.7[facility] LlveyuwBRFBBYTUSW8557-84-21 11:32:000.7[facility] MmmyenbAHAIHTEGYO2838-62-70 11:32:001.6[facility] AngzssfGPOVFDCXRV4213-65-44 11:32:000.2[facility] BDOJMJVREN7317-24-15 11:32:0050.7[facility] RrbnjuqHITCZWRVEE7517-57-89 11:32:00 28.1[facility] FzndqbfZVYWBATZZO4169-25-79 11:32:003.39[facility]annHEMATOLOGY 2016-07-30 11:32:008.9[facility] IhmncekWXRMUTLOSV2286-52-37 11:32:005.1[facility] CuicjqxYJOXRPILPA2985-93-24 11:32:0011.3[facility] DkquzuaYHYPFGKWRI0368-05-45 11:32:28462Saluvkxy YljcdbzPVJHMWBYWM4034-56-06 11:32:0031.8[facility] CBJEMBSIUT7546-93-19 11:32:0018.0[facility] GrysqrdUAMHTXPBXC5145-52-15 11:32:00 83.0[facility] YmyaanpIEGZNLUVHU1874-59-56 11:32:00 Test Item Value Reference Range Interpretation Comments MCH (test code = MCH) 26.4 pg 27.0-31.0 [facility] FrmezmrINWNWNGDWP2606-80-57 11:32:06659Kntblxqe HermannIMMUNOLOGY 2016-07-30 11:32:00Negative *NA*(07/30/16 5:32 AM)[facility] HermannIMMUNOLOGY 2016-07-29 11:05:00Negative *NA*(07/29/16 5:05 AM)[facility] HermannIMMUNOLOGY 2016-07-29 11:05:0092[facility] HermannCHEM UQBRJ9379-94-33 15:50:0025[facility]annCHEM NABPR3231-38-94 15:50:0055[facility] HermannCHEM AYBBI0898-03-20 15:50:0023[facility]annCHEM VXHKV3949-30-13 15:50:09436Frcqwmum HermannCHEM NLDXA0367-72-03 15:50:13868Kztmynyz HermannCHEM ABKTL5643-41-43 15:50:004.0 [facility]annCHEM TUCMT5951-88-94 15:50:12304Qzluhwjx HermannCHEM PANEL 2016-07-28 15:50:0013.0[facility] HermannCHEM BJPPH8912-97-81 15:50:007.7[facility] HermannCHEM SWCRE1622-22-92 15:50:002.49[facility] QgqogrfULQPOLHHWD8095-25-94 15:50:00 Test Item Value Reference Range Interpretation Comments PT (test code = PT) 14.8 s 12.0-14.7 [facility] PlbyeclVSIWYDPCRQ7509-30-38 15:50:00 Test Item Value Reference Range Interpretation Comments PTT (test code = PTT) 40.8 s 22.9-35.8 [facility] NzkiwhfSBNKZKBABJ9391-02-67 15:50:001.14[facility] HermannIMMUNOLOGY 2016-07-28 15:50:0094[facility] OktpyvcNQJBZJVBUY5751-14-06 10:35:001.7[facility] DmvnjvfPOKSKZRLQC7558-36-50 10:35:002.7[facility] DllwowrJLJJJCWNQZ4601-78-13 10:35:000.1[facility] AvblyicZWKLEJXWCB4604-72-06 10:35:000.7[facility] [place] PUOMSMYLKO1930-30-10 10:35:0051.3[facility] QkafpbzTFXIIPJFMD2933-73-45 10:35:00 31.6[facility] TigwtrmRKTIUSYCPW1989-55-02 10:35:0014.1[facility] HermannHEMATOLOGY 2016-07-28 10:35:002.6[facility] YcjaoxuEUKVCFQIEC6037-48-53 10:35:000.4[facility] AbtqvtoSSYOQGLXXH9477-53-95 10:35:0029.3[facility] UrfskylAAZYEXBHJT1727-59-14 10:35:009.2[facility] GswmmgnVVODZFDYXB5272-92-93 10:35:003.54[facility] UQNLFLIAKU8671-85-35 10:35:005.3[facility] JzvkkpuLFNXTOEVCE9308-77-27 10:35:0087 [facility] UkncajsEOSTRQMVSI3254-97-81 10:35:0031.4[facility] HermannHEMATOLOGY 2016-07-28 10:35:0017.9[facility] EhqzakjEWPPRGAJFE1197-24-92 10:35:0010.9[facility] ZifrxwfHQGXTOSPFJ0190-68-14 10:35:00 Test Item Value Reference Range Interpretation Comments MCH (test code = MCH) 26.0 pg 27.0-31.0 [facility] HazhfmiGBDVDCQRBS7224-47-57 10:35:0082.8[facility] HermannIMMUNOLOGY 2016-07-28 10:35:00Negative *NA*(07/28/16 4:35 AM)[facility] HermannCARDIAC ENZYMES 2016-07-27 10:22:00390[place] HermannCHEM YFQAL6490-73-47 10:22:007.8[facility] HermannCHEM WBDTY5730-98-08 10:22:0021[facility]annCHEM NTTZX6121-56-40 10:22:12798Lnjcfroi HermannCHEM ABNHV5695-89-03 10:22:003.8[facility] HermannCHEM YGHEZ7465-58-44 10:22:64397Spozdhvx HermannCHEM NFUEA3822-88-74 10:22:000.4 [facility] HermannCHEM CLKXF9087-70-12 10:22:0074[facility] HermannCHEM PANEL 2016-07-27 10:22:0019[facility] HermannCHEM XPSSD7283-14-71 10:22:005.2[facility] HermannCHEM MFTUM2608-04-26 10:22:76868Hoafgosi HermannCHEM SXKWW2497-42-84 10:22:23617Akysklek HermannCHEM YJFBJ1750-79-53 10:22:001.8[facility] HermannCHEM UGXRP6323-08-43 10:22:0054[facility] HermannCHEM RENQW6167-25-77 10:22:62400 [facility]annCHEM UIFPY1181-12-81 10:22:003.11[facility] HermannCHEM PANEL 2016-07-27 10:22:0017[facility] HermannCHEM VWZEA1219-64-55 10:22:0016.8[facility] HermannCHEM JOLMQ5852-27-81 10:22:003.4[facility] HermannCHEM YHRQF1202-85-77 10:22:000.5[facility] HermannCHEM RTIUF2554-49-49 10:22:002.0[facility] HermannCHEM WFHLX4538-92-73 10:22:003.7[facility] GeocgjyFVWQNSTKIE3764-25-96 10:22:0017.7 [facility] DuicxkmPEKRFMWTXZ4287-21-75 10:22:0032.9[facility] HermannHEMATOLOGY 2016-07-27 10:22:0025.4[facility] BkrlxohKIIFMIKVCE5465-01-74 10:22:00 Test Item Value Reference Range Interpretation Comments MCH (test code = MCH) 26.4 pg 27.0-31.0 [facility] BfkgvapKEJSCLHDQG3856-80-95 10:22:0080.3[facility] HermannHEMATOLOGY 2016-07-27 10:22:0011.4[facility] PhozbehMTYWOKZPDG2640-40-73 10:22:0074[facility] VqrckovVWUURNVZFE9918-96-21 10:22:003.16[facility] UasxoslDTVZZBZPTL8189-63-89 10:22:005.3[facility] XlwbyysQNXAJFDPVT7522-68-05 10:22:008.4[facility] NNLTAGIFXG0175-42-63 10:22:0014.5[facility] EqwzfjwKTCQQOQOYV5360-77-43 10:22:00 29.8[facility] IcglswlRTCTAXHVSR8888-72-87 10:22:000.1[facility] HermannHEMATOLOGY 2016-07-27 10:22:000.8[facility] OhbegniOMCVTLYHZU5254-96-33 10:22:002.9[facility] ZexxqeuOCHRDQXCPA6527-30-38 10:22:001.6[facility] EgpgqasKVYOYPDTAI6937-94-92 10:22:000.4[facility] TzenfslAYKRJLDSYQ7188-39-44 10:22:001.2[facility] OLKDVYEXHH2512-48-17 10:22:0054.1[facility] HermannSPECIAL GTOONYVAK0576-85-57 10:22:008.9[facility] HermannCARDIAC QXVULFJ7400-49-96 17:40:38038Toatjopw [place] BWQJRIEZCA5789-54-23 17:40:00Positive *ABN*(07/26/16 11:40 AM)[facility] [place] RPSCODIYVP5385-90-10 17:40:00<0.2[facility] YoasvhxWNASYKOADT3456-87-03 17:40:00<0.2[facility] HzahmzdQZBTUCUHMQ9432-15-61 17:40:00<0.2[facility] YhetjiaKVAPSUXSQO5932-50-03 17:40:00<0.2[facility] SmfpyjoKHTIABTJNJ2925-54-09 17:40:00Negative (07/26/16 11:40 AM)[facility] QvexlouYZGKFZTDTC5840-00-04 17:40:00 1:40 *ABN*(07/26/16 11:40 AM)[facility] HermannURINE IKJX7642-94-91 17:40:0021 [facility] OpmicxnQTHTTXSRVR9180-60-65 14:00:001.11[facility] HermannHEMATOLOGY 2016-07-26 14:00:00 Test Item Value Reference Range Interpretation Comments PT (test code = PT) 14.5 s 12.0-14.7 [facility] KhabuhrFWXHTPVOAK6664-05-63 14:00:00Negative *NA*(07/26/16 8:00 AM) [facility] RikudpiIWVEOOMKAH2735-28-77 14:00:00Negative *NA*(07/26/16 8:00 AM) [facility] XhchawjEVLOKOVIIJ3247-05-25 14:00:00Negative *NA*(07/26/16 8:00 AM) [facility] EwqyaxnGTPNEKBPYD8554-31-67 14:00:00Negative *NA*(07/26/16 8:00 AM) [facility] HermannCHEM QKOYC4825-91-99 10:42:0017[facility] HermannCHEM PANEL 2016-07-26 10:42:195738Zzrbrapo HermannCHEM MHFHY9552-23-28 10:42:000.5[facility] HermannCHEM HLAOZ3214-94-88 10:42:000.3[facility] HermannCHEM ZHDHB4456-37-85 10:42:0079[facility]annCHEM LZSAK8294-23-73 10:42:24580Ofuccvup HermannCHEM XFFOR6769-79-87 10:42:005.5[facility] HermannCHEM JWXFA0700-53-19 10:42:003.7 [facility] HermannCHEM GFDBC2138-06-86 10:42:001.8[facility] HermannCHEM PANEL 2016-07-26 10:42:002.1[facility] VulmjmpSSVHRQPUNN0958-11-04 10:42:00Present *ABN*(07/26/16 4:42 AM)[facility] QgivdevSFNFVGQBLT1711-81-95 10:42:001+ *ABN*(07/26/16 4:42 AM)[facility] WsreibqGAVCKOCOPF0101-71-34 10:42:000.1[facility] FcoxuwsYQSATAUSAA0482-32-93 10:42:00Moderate *ABN*(07/26/16 4:42 AM)[facility] EioqzsaGIGHBXRSQA9112-71-07 10:42:0042[facility]annURINE AND TSQRO5918-16-89 16:34:001[facility]annURINE AND NZOSE4158-21-65 16:34:004[facility] URINE AND PXAAR5158-79-29 16:34:00Negative (07/25/16 10:34 AM)[facility] URINE AND TADTK8807-90-48 16:34:00Negative (07/25/16 10:34 AM)[facility] [place] URINE AND OXOTN8694-86-87 16:34:002[facility]annURINE AND IOIVE2845-18-13 16:34:006[facility]annUR[facility] AND JLGMY0217-80-03 16:34:002.0[facility] [place] URINE AND ATKFN8284-64-68 16:34:00Negative (07/25/16 10:34 AM)[facility] URINE AND FQZQM0419-41-62 16:34:00Negative *NA*(07/25/16 10:34 AM)[facility] URINE AND MXJQK7495-37-36 16:34:001.012[facility]annURINE AND LPYFM8267-93-20 16:34:005.5[facility]annUR[facility] AND BCGKT3958-98-52 16:34:00Slight *ABN*(07/25/16 10:34 AM)[facility] AND RJNGL7493-13-49 16:34:00Dark Yellow *NA*(07/25/16 10:34 AM)[facility] AND JTHVC7965-58-35 16:34:009 [facility]annURINE EDXE7400-99-35 16:34:0030[facility]annUR[facility] CHEM 2016-07-25 16:34:003.1[facility]annURINE QIIG9068-84-68 16:34:02294.9[facility]annURINE FBLK7072-73-83 16:34:73240.00[facility] HermannCHEM OWKHD6162-20-82 08:55:002.0[facility] HermannCHEM LXPTW6630-89-64 08:55:005.2[facility] [place] CARDIAC RNNHGVW8540-60-15 17:29:000.28[facility] HermannCARDIAC SWHAPIR9264-99-39 17:29:142156Svqyxnqj HermannCARDIAC IBOPSOW4115-49-61 17:29:000.144[facility]annCARDIAC ZJPHUWG0294-56-64 17:29:000.2[facility] HermannCARDIAC ENZYMES 2016-07-24 17:29:006.3[facility] HermannCARDIAC OLFFYRE5441-82-77 11:20:000.38 [facility]annCARDIAC EJPBECD3811-79-86 11:20:000.173[facility]annCARDIAC GQVKKLN8192-16-81 11:20:000.2[facility]annCARDIAC DFBMONB1026-24-18 11:20:00 5.6[facility] HermannCHEM NTANL9083-32-44 11:20:005.5[facility] HermannCARDIAC FYNXZSZ3597-48-28 06:18:73038Umuilhrk HermannCARDIAC GKDNERC4061-60-18 04:59:27 0.57[facility]annCARDIAC XVXXRRK8888-61-68 10:22:98689Ymmfmkyg HermannCHEM EASQR9948-77-92 10:22:002.1[facility] HermannCHEM PGPUH9963-98-02 10:22:35599 [facility]annCHEM YWOVH9695-06-58 10:22:0041[facility] HermannCHEM PANEL 2016-06-15 10:22:002.00[facility] HermannCHEM AODEO3131-20-77 10:22:009.0[facility] HermannCHEM WSBAX5697-13-87 10:22:90747Jfrcugus HermannCHEM ADNDD4517-36-94 10:22:0033[facility] HermannCHEM IMHUW0631-34-04 10:22:46905Nefqtbht HermannCHEM DKFUO2964-41-06 10:22:004.0[facility] HermannCHEM KKMLQ9194-54-38 10:22:0032 [facility]annCHEM UKAFZ6092-60-01 10:22:0013.0[facility] HermannCHEM PANEL 2016-06-15 10:22:004.6[facility] PkkfedrDTARFHRKST5150-23-96 10:22:003.68[facility] TxapvnfFNDVYDTXDY2356-67-19 10:22:009.9[facility] GhtvonfOYWQSTGNRF9445-56-99 10:22:00 Test Item Value Reference Range Interpretation Comments MCH (test code = MCH) 26.8 pg 27.0-31.0 [facility] TwshmjaLSEJHZKXKL4482-88-81 10:22:0034.2[facility] HermannHEMATOLOGY 2016-06-15 10:22:0078.3[facility] QduvjgePWVDEDYUJY7790-98-13 10:22:0028.8[facility] AkaztqzOBFLQMTAHQ5854-36-99 10:22:03458Kqnorbpv XveswcqHAWYFHYKNW6842-83-62 10:22:009.5[facility] MbczvxzKBNURMAWUD1906-80-36 10:22:0015.3[facility] ZSNSOZRHJB9705-98-35 10:22:005.6[facility] CrowpiwICKDCWCSOZ7074-17-72 10:22:000.5 [facility] YngpxmbZJPCOEMCCH2824-08-37 10:22:001+ *ABN*(06/15/16 4:22 AM)[facility] RgaelyiJNJHMETELY7736-16-11 10:22:000.1[facility] RoptaemFDYNERYITM9494-90-17 10:22:0033.5[facility] GsjnxxyQTPVAYRCLY1121-50-82 10:22:0047.6[facility] [place] JJBTHYWACY2863-41-10 10:22:008.4[facility] UnovsmgAOAMNXRERB9907-15-68 10:22:009.4 [facility] LgfikscEFLHQJTVVZ8507-39-76 10:22:002.6[facility] HermannHEMATOLOGY 2016-06-15 10:22:001.9[facility] MczgubrIYAVUBDMQW8450-55-18 10:22:001.1[facility] JepenhiAMAETHYZKA1551-12-47 10:22:000.5[facility] HermannCHEM WYEJZ3767-88-70 11:03:004.8[facility] HermannCHEM PHEJX3706-78-09 11:03:002.0[facility] HermannCHEM QVIVO2086-86-07 11:03:0032[facility] HermannCHEM ORNUM7426-48-75 11:03:18848 [facility]annCHEM OMYVU2366-04-57 11:03:004.4[facility] HermannCHEM PANEL 2016-06-14 11:03:0037[facility] HermannCHEM KBGRF2662-15-89 11:03:24907Jgyyjsac HermannCHEM BESSZ6695-14-04 11:03:002.00[facility] HermannCHEM FECQA4641-58-10 11:03:28936Hrjvfbyl HermannCHEM CZWCO0939-79-72 11:03:008.7[facility] HermannCHEM GGOWA0370-05-75 11:03:0032[facility] HermannCHEM CKAAZ0486-85-82 11:03:0013.4 [facility] FondiauBUMYNAMWZA9003-27-72 11:03:0010.3[facility] HermannHEMATOLOGY 2016-06-14 11:03:000.1[facility] WxxmyonROBUVLWAEI6676-07-65 11:03:000.5[facility] FyajtxiUKKJWVEVIV5285-56-82 11:03:000.5[facility] GgofzbnYNYXEGTSMF3109-55-68 11:03:002.1[facility] BvwfneqABNVJXMWVO2039-71-31 11:03:001.2[facility] [place] VUAFQOTNJU1565-31-99 11:03:001.9[facility] JjsjyyiNWGCDBGLQQ9266-54-10 11:03:00 42.5[facility] WciygbmHXQLRAQQKN7773-23-91 11:03:0037.0[facility]annHEMATOLOGY 2016-06-14 11:03:009.0[facility] NgjbadxARWTLOQEIU6819-68-22 11:03:009.8[facility] BigssawHYXIMRIROO8375-74-50 11:03:005.0[facility] GmzzhdeWPXQGTAPYX6032-72-13 11:03:003.57[facility] MzgzacwMNWIVSHQGU3514-62-92 11:03:009.4[facility] TAVNRPINWD3918-32-44 11:03:0028.5[facility] AvziewxTDPTXIUOAO2633-80-21 11:03:00 183[facility] KujyrlkIEOELGWDSC3088-74-17 11:03:0079.9[facility] HermannHEMATOLOGY 2016-06-14 11:03:00 Test Item Value Reference Range Interpretation Comments MCH (test code = MCH) 26.3 pg 27.0-31.0 [facility] QwcctwjINQVRQISUH4503-37-88 11:03:0033.0[facility] HermannHEMATOLOGY 2016-06-14 11:03:0015.9[facility]annURINE NWTF2788-92-73 10:26:006.9[facility]annURINE VYKC3015-89-33 10:26:0019.30[facility]annURINE OXSA7459-34-11 10:26:26759.1[facility] FherqxtPXWYRFLUXY2186-44-99 09:20:009.7[facility] NFGOYNZHXK3001-10-40 09:20:62207Owgfchvx FefagaeYXNSAUABXI0532-78-08 09:20:00 15.9[facility] WjrrcmlUSFWEIKHEK7396-87-17 09:20:0079.3[facility] HermannHEMATOLOGY 2016-06-13 09:20:0033.0[facility] NofsrgsWLUTQTAVAC4658-19-28 09:20:00 Test Item Value Reference Range Interpretation Comments MCH (test code = MCH) 26.2 pg 27.0-31.0 [facility] LegrkbyHVQWRQLZNO0292-82-71 09:20:0029.4[facility] HermannHEMATOLOGY 2016-06-13 09:20:009.7[facility] LczpiyxGSABIUTLXG1374-20-75 09:20:003.70[facility] ToqdtfyIIXUPPGQZQ1938-18-22 09:20:005.7[facility] MqaylptHGVYTVWEWJ6134-27-47 09:20:000.1[facility] NvvothuBAYHIPUDKS1025-65-08 09:20:002.2[facility] JGHATEUNYW1681-86-72 09:20:000.5[facility] CzvkdkvKBCSRVQRBW2906-31-63 09:20:000.5 [facility] WqikwkaAFHPAABYIY7572-88-11 09:20:001.1[facility]annHEMATOLOGY 2016-06-13 09:20:002.3[facility] BmepailDUZEWWBNEI6942-56-86 09:20:009.5[facility] HbayynpMBPEKJBAOF0392-23-92 09:20:009.0[facility] OnihuykYVEYHAYYGL2325-00-93 09:20:0038.9[facility] NstnoreQOSMAKGJUH5726-20-91 09:20:0041.5[facility] [place] CHEM ZRJPZ7736-48-06 06:34:001.7[facility] HermannCHEM GPVDS5704-03-15 06:34:004.2 [facility] HacohxiJVIEFWYJTESI6036-61-04 06:34:0014.3[facility] HermannELECTROLYTES 2016-06-13 06:34:0041[facility] VvwyhoeSJQARMRXZOAP5680-62-68 06:34:37450Ukxasrsf PfmcitgSVGYLLRXKSKJ9099-91-46 06:34:008.5[facility] StrblgxCHIPEEACJOJR7212-29-00 06:34:0032[facility] IdhjzgbFTTEFGEXHFVT4180-61-80 06:34:67393Uknkxhpm Vin WWRWEZVMDKIR5194-03-43 06:34:0037[facility] FpzdgrpWXGDMOMQSTPQ9372-13-11 06:34:00 1.63[facility] PadxltzJJFIITGOVHIR8283-84-62 06:34:004.3[facility] ZCDSEOVEHEVN3624-76-68 06:34:28263Hecnoqdp HermannCHEM OMOBH3982-64-62 16:21:00 48.0[facility] TctboaxBLDOBJVIMM1745-96-39 14:56:001:40 *ABN*(06/11/16 8:56 AM) [facility] UvdsnqyKLUMXCFCYY9160-47-22 14:56:00Negative *NA*(12/22/16 8:56 AM) [facility] YluhszqMTDSOTMFBD4239-81-54 14:56:00Negative *NA*(06/11/16 8:56 AM) [facility] HjvsvesKCYZKBLSRD6822-65-74 14:56:00Negative *NA*(06/11/16 8:56 AM) [facility] TescvtpMXYIAHODSU0076-10-71 14:56:00Negative *NA*(06/11/16 8:56 AM) [facility] BpzjmxgWIRCSGZHBE0462-79-80 14:56:00Negative *NA*(06/11/16 8:56 AM) [facility] WyeahjlZJHYKIMIVC4102-87-25 14:56:00Positive *ABN*(06/11/16 8:56 AM) [facility] HermannCHEM HPOTW7071-93-05 10:42:000.1[facility] HermannCHEM PANEL 2016-06-11 10:42:005.2[facility] HermannCHEM IOFGD8763-37-56 10:42:001.6[facility] HermannCHEM DWFTM6480-94-42 10:42:0020[facility]annCHEM LHAGI2852-91-69 10:42:003.6[facility]annCHEM GPRPP3489-81-65 10:42:000.4[facility] HermannCHEM PPYRF2064-15-06 10:42:0074[facility]annCHE[facility] AIWBX2318-57-78 10:42:0014 [facility]annCHEM VPCTG1202-03-47 10:42:0013[facility]annHEMATOLOGY 2016-06-11 10:42:001.06[facility] FvfvliyYNSOZUJUCV5395-86-67 10:42:00 Test Item Value Reference Range Interpretation Comments PT (test code = PT) 14.0 s 12.0-14.7 [facility] VsqsjskPNDLMPCRRZ2524-30-42 10:42:00 Test Item Value Reference Range Interpretation Comments PTT (test code = PTT) 36.4 s 22.9-35.8 [facility] VACFCKLOZ1415-53-99 10:42:0010.5[facility]annCARDIAC HOOPOCN2324-24-30 02:08:001.8[facility]annCARDIAC WVPADOG9443-70-53 02:08:00 2.9[facility]annCARDIAC YJAMKFZ2477-55-30 02:08:000.061[facility] [place] CARDIAC UJFDZVN9991-52-44 02:08:60457Irpqlpzr HermannCARDIAC VNOHWAY5812-08-78 02:08:00<0.02[facility]annCHEM MOELX9161-84-59 02:08:000.2[facility] CHEM IKOSE7643-12-47 02:08:000.1[facility]annCHEM XUWHZ3806-51-94 02:08:000.1 [facility]annCHE[facility] BCCFR9310-99-14 02:08:005.7[facility]annCHEM PANEL 2016-06-11 02:08:000.5[facility]annCHEM ZGXZJ2401-33-38 02:08:001.8[facility]annCHEM LQXHB7004-37-82 02:08:003.9[facility]annCHEM CGRZY8870-11-04 02:08:0099[facility]annCHEM CERTH5633-58-77 02:08:0021[facility]annCHEM IAXXZ4472-95-55 02:08:0017[facility]annDRUG MTPSEA4178-38-11 02:08:00See Note *NA*(06/10/16 8:08 PM)[facility]annDR[facility] DHSJKJ1148-31-33 02:08:00Negative *NA*(06/10/16 8:08 PM)[facility]annDR[facility] BAQLEM8524-93-19 02:08:00Negative *NA*(06/10/16 8:08 PM)[facility]annDR[facility] GRJIKD9997-07-58 02:08:00Negative *NA*(06/10/16 8:08 PM)[facility]DR[facility] IVSGSE1675-81-96 02:08:00Negative *NA*(06/10/16 8:08 PM)[facility]DR[facility] CFABAJ2366-07-07 02:08:00Negative *NA*(06/10/16 8:08 PM)[facility]annDR[facility] MBSXGN0877-59-48 02:08:00Negative *NA*(06/10/16 8:08 PM)[facility]annDR[facility] BHYMMK0717-98-95 02:08:00Negative *NA*(06/10/16 8:08 PM)[facility]DR[facility] RCOXWL2552-21-31 02:08:00Negative *NA*(06/10/16 8:08 PM)[facility]annDR[facility] NAORZQ4908-66-35 02:08:00Negative *NA*(06/10/16 8:08 PM)[facility] CcwbnotPLTUIX7453-15-77 02:08:0075[facility] UsxmxptTRFGFV7997-95-73 02:08:0027[facility] MalxrzuKPDOJU0595-22-37 02:08:25054 [facility] AaygxggUVJMWL2563-61-90 02:08:80508Vegtadfv SejjhroVIXDYS4249-37-84 02:08:004.29[facility] GkjoesbEBTCCI5457-60-94 02:08:0031[facility]annURINE AND IRWZU3654-76-58 02:08:006.0[facility] IRWXV7611-45-94 02:08:00 Negative (06/10/16 8:08 PM)[facility] CTPVC4664-32-34 02:08:00 Trace *ABN*(06/10/16 8:08 PM)[facility]ann[facility] AND JBXGJ5667-16-85 02:08:00 Negative *NA*(06/10/16 8:08 PM)[facility]ann[facility] WREGE5908-38-01 02:08:004[facility] AND JKXVA4154-21-13 02:08:005[facility] URINE AND XRKGC9216-55-12 02:08:00Small *ABN*(06/10/16 8:08 PM)[facility] URINE AND MBYRV9177-03-42 02:08:001[facility] WHKIZ6518-84-26 02:08:001.009[facility] AND NGQJR3252-67-14 02:08:00Yellow *NA*(06/10/16 8:08 PM)[facility] PKNRA1430-17-47 02:08:00Clear (06/10/16 8:08 PM)[facility] ZMIG8207-10-66 02:08:00Negative (06/10/16 8:08 PM)[facility] WOUU5206-40-28 02:08:18791.4[facility]annUR[facility] TRQF9318-79-09 02:08:005.4[facility]annUR[facility] VBXZ9626-84-75 02:08:0069.80[facility]annCARDIAC RCMYXIT7101-14-49 16:53:958061Oweqqwqr HermannCARDIAC CFLYMHR7107-00-90 16:53:00<0.02[facility]annCHEM PANEL 2014-06-26 13:02:000.9[facility] PwndzptFHQQVWGBOV1797-20-80 12:29:4410[facility] JsiierwKYECJBVLNONRV1992-89-30 11:21:271[facility]annCHEM GHLYE5571-94-67 11:21:003.2[facility]annCHEM TBCCM6170-79-25 11:21:006.6[facility]annCHEM VJAKJ3672-78-19 11:21:000.6[facility]annCHEM ZGEOR9672-53-72 11:21:0059 [facility]annCHEM XHXCA8035-50-44 11:21:0011[facility]annCHEM PANEL 2014-06-26 11:21:0017[facility]annCHEM EAPZC9454-24-68 11:21:0099[facility]annCHEM ZMRAM5141-74-61 11:21:11377Twcqruvd HermannCHEM HGHDT4832-64-50 11:21:003.4[facility]annCHEM YFEQN0842-57-68 11:21:0011[facility]annCHEM PXABM0174-41-26 11:21:000.8[facility]annCHEM CVUJP7423-71-02 11:21:77554 [facility]annCHE[facility] CUUBQ2363-93-34 11:21:0094[facility]annCHEM PANEL 2014-06-26 11:21:009.1[facility]annCHEM FFZNM6462-44-64 11:21:0024[facility]annCHEM BCLGJ4380-20-70 11:21:000.9[facility]annCHEM NOFAH7003-80-37 11:21:003.4[facility]annCHEM UQBSX8260-67-24 11:21:0014[facility]annCHEM RCRDB7589-39-03 11:21:0019.4[facility]annCHEM KTVUW7458-16-81 11:21:0081 [facility] CffrrprVOTMYHANLM5986-98-68 11:21:000.0[facility] HermannHEMATOLOGY 2014-06-26 11:21:001+ *ABN*(06/26/14 5:21 AM)[facility] LtaamnuYGFTYLQKPZ7515-67-24 11:21:000.6[facility] BwxwtfbKNILIKGPOI7106-68-79 11:21:000.1[facility] TSWJRCADXL7185-30-44 11:21:002.5[facility] JkjahlkIVAUVGERAN4744-17-62 11:21:00 63.3[facility] JtlhnvuRJHRTEAZMW5206-22-76 11:21:005.6[facility] HermannHEMATOLOGY 2014-06-26 11:21:000.0[facility] KubbpukSQIWVOYCUW0733-51-19 11:21:000.9[facility] RcfiuqdZXGDLJKDEB9861-32-31 11:21:007.0[facility] QcfcfhuMLPMVERFHR2588-83-20 11:21:0028.8[facility] MyrioqrYGLKFHMEPI4756-75-15 11:21:008.8[facility] Vin JEXOTPBGGO3856-25-05 11:21:005.19[facility] OltrgviBDJYNTORHU2998-98-44 11:21:00 14.4[facility] LvkkyvoNGGJYZZMHL0361-54-30 11:21:0043.1[facility]annHEMATOLOGY 2014-06-26 11:21:0083.1[facility] QdifsfnUDWPMBQYFU2769-40-70 11:21:00 Test Item Value Reference Range Interpretation Comments MCH (test code = MCH) 27.8 pg 27.0-31.0 [facility] GmjjtdvXSAQRHLSBQ3034-38-70 11:21:0013.1[facility] HermannHEMATOLOGY 2014-06-26 11:21:0033.5[facility] LvslmxqEVLFVFXFFY7990-01-92 11:21:38225Rusfairn NjenkrjGFEIZWPWFW6816-26-59 11:21:0010.4[facility] VyewrpaREUKNLMQAP5514-96-74 04:48:55Performed (04/14/2013 23:48:55)[facility] HdgihmeGAOCIRPZAY1626-26-41 04:48:55Negative *NA*(04/14/2013 23:48:55)[facility] UdrlbheOXYVDGGVHL4451-71-48 04:48:55Trace *ABN*(04/14/2013 23:48:55)[facility] MxbstnyWPKHOFXUSS0346-95-35 04:48:55Negative (04/14/2013 23:48:55)[facility] CqnobqgOVCAUPIVUZ4339-49-50 04:48:550.2[facility] UcmubkiOZZKXCPUSR7325-16-07 04:48:55Negative (04/14/2013 23:48:55)[facility] TscpdmoGKACJFEHYS9773-97-24 04:48:55Negative (04/14/2013 23:48:55)[facility] HgubvfjHDAEUOHLOZ3035-57-93 04:48:55Clear (04/14/2013 23:48:55)[facility] YggfhtbUJKGZZNRUY8909-00-73 04:48:55Yellow *NA*(04/14/2013 23:48:55)[facility] NsfxwsfCTZTGWUJQS1213-30-57 04:48:55 Test Item Value Reference Range Interpretation Comments UA pH (test code = UA pH) 7.0 1 5.0-8.0 N [facility] HsayprkKJCHRJUUUA3631-95-51 04:48:55 Test Item Value Reference Range Interpretation Comments UA Spec Grav (test code = UA Spec 1.025 1 N Grav) [facility] YfjzddvMZTOZDCCHW4182-83-88 04:48:55Trace *ABN*(04/14/2013 23:48:55) [facility] NfhgvhxLQEHOZYJZ3612-98-81 04:28:00Negative *NA*(04/14/2013 23:28:00) [facility] IpbdvmpFEIEOQXQG1622-51-76 04:28:95920Ujibmfhq HermannCHEMISTRY 2013-04-15 04:28:004.1[facility] QxexnxvOPHKRJGUU9287-28-26 04:28:0010.5[facility] NzlfixdILVCXTKXU7112-59-97 04:28:006[facility] QwakuwfGITQTVQTE7871-24-03 04:28:00 0.7[facility] LwmftguTRMOYMAMM9222-74-44 04:28:90330Nkzvktou HermannCHEMISTRY 2013-04-15 04:28:002.9[facility] DgyajbdIFSAWSCPG8567-38-75 04:28:0020[facility] MunvhizCNQUPMXDG6621-74-77 04:28:000.5[facility] TdqhthjKJNCNEGEJ7354-68-41 04:28:0089[facility] QtwonfqLFAGCBPLR3752-79-30 04:28:0011[facility] [place] OEIJXLOIV5795-94-44 04:28:000.5[facility] TyqntczKDLTXEIFW7556-13-53 04:28:003 [facility] WrphcsxVKCQBBJDH6021-95-63 04:28:35910Eefgjqid HermannCHEMISTRY 2013-04-15 04:28:007.0[facility] XnkhirgDEKFVYQWR2598-60-40 04:28:008.7[facility] MblybilOBKNZMZLP7932-72-52 04:28:0029[facility] FuchbghLCNAKQRBJ4198-58-09 04:28:58531Qufabofg XxfpcqfYXVFKQGRZ7692-27-20 04:28:003.5[facility] [place] JHUKOVXZI3949-24-54 04:28:81000Zctaevpm TzmhsbaOEBJYUYAFP6144-89-25 04:28:00 Test Item Value Reference Range Interpretation Comments PROTIME (test code = PROTIME) 12.1 s 12.0-14.7 N [facility] XzjppsdDPXMBDTVAY3388-70-31 04:28:00 Test Item Value Reference Range Interpretation Comments aPTT (test code = aPTT) 39.0 s 22.9-35.8 H [facility] KlfjfkxEOPHMQIYNG1339-63-37 04:28:000.90[facility] HermannHEMATOLOGY 2013-04-15 04:28:00 Test Item Value Reference Range Interpretation Comments MCH (test code = MCH) 29.4 pg 27.0-31.0 N [facility] KitauwlEIYSIFCFTN1246-97-78 04:28:0086.1[facility] HermannHEMATOLOGY 2013-04-15 04:28:0029.4[facility] EnxcodaTZTOQWRNBQ7854-62-03 04:28:0014.0[facility] UolzbbpLJPKCFASYR5070-77-61 04:28:006.2[facility] BmcsyhgJEXLDOCXZS8970-95-47 04:28:55402Byzvrjwy DoazyimDLIPKNQFNX6912-96-90 04:28:0034.1[facility] [place] SQSLLTUTPY9238-50-88 04:28:003.41[facility] DdpfzahVAGDXMHIQP8741-09-13 04:28:00 10.0[facility] OlhmxrhIDIJLWYUZI5239-12-81 04:28:0010.1[facility] HermannHEMATOLOGY 2013-04-15 04:28:004.4[facility] HjtueyqFYIZXAJJWD5550-15-90 04:28:000.7[facility] PmnhbyaJRXCOQLWOG4378-42-07 04:28:0070.7[facility] OqdlqbcJHCGSNJIGH0614-50-72 04:28:000.3[facility] QgkxydqCITKHLYXTI7787-10-13 04:28:001.2[facility] CWLIATFRMX0194-92-76 04:28:004.5[facility] WswztttTLGMKEQXQS2263-33-82 04:28:004.1 [facility] BtihbopVKTZHSJHIF6507-58-37 04:28:0020.0[facility] HermannHEMATOLOGY 2013-04-15 04:28:000.0[facility] QloojryKUAFULSWOP4181-48-50 04:28:000.3[facility] HermannBEDSIDE GLUCOSE CEWSGZB0315-24-62 01:12:71412Uqerpwgk HermannURINALYSIS 2012-03-14 23:40:00Trace *ABN*(03/14/2012 18:40:00)[facility]annURINALYSIS 2012-03-14 23:40:00 Test Item Value Reference Range Interpretation Comments UA pH (test code = UA pH) 6.0 1 5.0-8.0 N [facility] NyxcuhuUMRIOZUPYC0069-03-01 23:40:00>=80 mg/dL *NA*(03/14/2012 18:40:00)[facility] CenterIapnteaBKYOBXNEZH5119-93-70 23:40:00>=1000 mg/dL *ABN*(03/14/2012 18:40:00)[facility] OhurmhcKCWIWSHBUP3384-33-30 23:40:00Negative (03/14/2012 18:40:00)[facility] BwsorxzDZRNYDKJQT1500-48-11 23:40:00Negative (03/14/2012 18:40:00)[facility] CenterOndmsqmDXRRJUWWJB8556-67-16 23:40:000.2[facility] AawwappBWPCMIBLUK5521-87-69 23:40:00Negative (03/14/2012 18:40:00)[facility] CenterEhauzbsYJXMSDQCMW4244-68-96 23:40:00Negative *NA*(03/14/2012 18:40:00)[facility] CenterAxyyfzeOJMOVXKFFI6834-13-59 23:40:00Clear (03/14/2012 18:40:00)[facility] NVTXZQUDCY9593-96-90 23:40:00Yellow *NA*(03/14/2012 18:40:00)[facility] MKEAZMUDYM6249-81-91 23:40:00>=1.030 *ABN*(03/14/2012 18:40:00)[facility] CenterWqswkwiUAROLCDNWF3661-47-12 23:40:00Occasional /LPF (03/14/2012 18:40:00) [facility] CenterGhakhhqZEVTWAOTBV9521-53-55 23:40:003-5 /HPF (03/14/2012 18:40:00) [facility] CenterAxtiqebIOOZVRJLPU8515-30-61 23:40:00Occasional /HPF (03/14/2012 18:40:00)[facility] CenterHjihsryCPAPGPVGH4084-81-38 22:50:00Negative *NA*(03/14/2012 17:50:00)[facility] CenterOwanjuuQRNDAOEPF5054-52-61 22:50:0045[facility] HermannCHEMISTRY 2012-03-14 22:50:001.2[facility] RrciacaBFIUGZGYZ2627-27-30 22:50:003.8[facility] VihxpenCCDHZIOSE6420-73-87 22:50:0021[facility] OgcenqtYXYDYJNQA0575-61-71 22:50:0016.8[facility] UnmiuatEHCCCPQIF2888-78-83 22:50:001.1[facility] BBQCHVNVX0800-95-92 22:50:008.2[facility] WhlvoowYXOQUMYKB6712-45-45 22:50:003.8 [facility] SjlowqqZFZMGNZJQ4095-14-50 22:50:000.7[facility] HermannCHEMISTRY 2012-03-14 22:50:00251Eqioijgl ZhzmavgVKUBKMPTQ2943-09-76 22:50:0099[facility] HzbyoppIXJFKRJJK9173-07-97 22:50:0027[facility] KjgxwvdPUXCQGMED9494-64-34 22:50:23762Bdoprbre QcfsllaVBVOOARCF5833-41-86 22:50:0015[facility] [place] QUAJYXUDM8459-14-22 22:50:0024[facility] MsytwkhHRLWAFSVG6704-23-05 22:50:0020 [facility] LkjbaxaEKFXOARFG5913-71-22 22:50:0067[facility] HermannCHEMISTRY 2012-03-14 22:50:004.4[facility] KwgaacqAZNHCKQTL5854-49-86 22:50:009.9[facility] KpthczsWYUOCGGLBR4319-03-69 22:50:0011.8[facility] HnfahnaKXWFAKJZVR0845-41-11 22:50:0035.9[facility] RshbjfmSSPXYFDJDI5398-34-89 22:50:00 Test Item Value Reference Range Interpretation Comments MCH (test code = MCH) 31.2 pg 27.0-31.0 H [facility] JyrxotdCTJBNKVRXL2127-86-04 22:50:57186Rhrupkza HermannHEMATOLOGY 2012-03-14 22:50:0013.1[facility] UjaiihnHHNQCXCHWJ0040-52-78 22:50:0040.7[facility] BfalsnwSFOUYKMRIY0442-18-48 22:50:0014.6[facility] NwsmvfoQRUNGMRECF3998-95-76 22:50:0087.0[facility] AphstpaSAOCTJWVSN6579-36-16 22:50:0011.7[facility] DXCUBPZJNG7823-17-34 22:50:004.68[facility] YemtpveYDGTWBMKEU5143-67-10 22:50:00 0.0[facility] HmpfcacEMLWUNLRZX4644-31-00 22:50:000.2[facility] HermannHEMATOLOGY 2012-03-14 22:50:000.0[facility] GwvqrdoCYTVZDYIJC1229-21-24 22:50:000.4[facility] RmzrewaXTLCVWGFDA7516-18-52 22:50:0010.6[facility] NypvhkuVFSTBZMLNY4861-99-00 22:50:000.7[facility] XvkvkfcQOCOQSHMAP6811-61-11 22:50:003.4[facility] WHYBBUKGXZ5024-62-81 22:50:00Normal (03/14/2012 17:50:00)[facility] CWVQAINFOV0162-59-30 22:50:006.0[facility] MshkrgjKCWBJDBHKH7319-13-76 22:50:000.0 [facility] ZyxfeicZUCURJOVPL5950-26-55 22:50:0090.4[facility] HermannHEMATOLOGY 2012-03-14 22:50:00Normal (03/14/2012 17:50:00)[facility] HermannBEDSIDE GLUCOSE GWHKEOH0411-30-50 23:43:83511Zrmhoprr HermannBEDSIDE GLUCOSE UIAJGWZ5299-73-91 17:40:60773Idnmdhjt HermannBEDSIDE GLUCOSE VLBBZVC4915-61-79 13:34:47210Lzvayuzz RwktzzvJLZQUSZWZ4904-95-21 00:00:00Negative (11/28/2011 19:00:00)[facility] GxzuiymLXKCPWKCFG7755-13-30 00:00:00Performed (11/28/2011 19:00:00)[facility] DzwllhfFWBXTYMYUV7920-29-00 00:00:00Occasional /LPF (11/28/2011 19:00:00) [facility] JsjpygaINITFSJZYK0968-11-24 00:00:00None Seen (11/28/2011 19:00:00) [facility] CenterQwtrbpsOPGKJLTMRA7990-91-57 00:00:00Negative mg/dL (11/28/2011 19:00:00)[facility] CenterCzsfmsmCELVMXFYCP8714-33-23 00:00:00 Test Item Value Reference Range Interpretation Comments UA pH (test code = UA pH) 7.0 1 5.0-8.0 N [facility] CenterHpnrxuqOIKMSPBNSE7884-91-42 00:00:00 Test Item Value Reference Range Interpretation Comments UA Spec Grav (test code = UA Spec 1.020 1 N Grav) [facility] CenterSeyyzxnWPDYATCAFW9257-08-25 00:00:00Clear (11/28/2011 19:00:00)[facility] CenterDzwawhsLWVHBTFMSI4526-71-89 00:00:00Yellow *NA*(11/28/2011 19:00:00)[facility] CenterRscvbnuIFVTGHIDOH8184-70-99 00:00:000.2[facility] RuappbnYMPOYOKYGT8317-93-78 00:00:00Negative (11/28/2011 19:00:00)[facility] CenterLpntnkzPWGQPVOAKK9257-70-33 00:00:00Negative *NA*(11/28/2011 19:00:00)[facility] CenterFtbaqnkZKDIKBMXST5616-41-19 00:00:00>=80 mg/dL *ABN*(11/28/2011 19:00:00)[facility] CenterannURINALYSIS 2011-11-29 00:00:00>=1000 mg/dL *ABN*(11/28/2011 19:00:00)[facility] UVCFOKDYUR6546-37-35 00:00:00Negative (11/28/2011 19:00:00)[facility] XEBKHEOPOR6723-13-95 00:00:00Negative (11/28/2011 19:00:00)[facility] Centerann TNEPUKALJ9433-28-57 20:41:0060[facility] YlwjhvkRBWAEHIYW5243-04-25 20:41:0041 [facility] WczuzyuACTEJAKOL5311-74-91 20:41:007.45[facility] HermannCHEMISTRY 2011-11-28 20:41:0037.0[facility] YzhpbwjUYQRLSZUU2113-44-51 20:41:0092.0[facility] UhjyyuuNAQLZAQHH0826-17-98 20:41:004[facility] KkdipadCBLKLGHZX8147-14-93 20:41:00 28.5[facility] PkbhvcdVEJKOBHGM2562-84-10 20:00:001.6[facility] HermannCHEMISTRY 2011-11-28 20:00:18616Zwujjicg ZpplcyuBWCDSWFDR6860-79-36 20:00:004.2[facility] RqjjgebUYQQHKGNP2326-88-89 20:00:0023[facility] PupakziTUWAXMRVN9502-45-91 20:00:0098[facility] PiunpjpWYIPMQZMY0736-92-67 20:00:003.8[facility] TVEQPTYAI8220-62-08 20:00:65607Ebjxcbcg TzjtcwjKJEXWAITC9225-64-82 20:00:000.7 [facility] JgogiomQUMEIPVZP1676-95-65 20:00:009[facility] BlhegczDEOLQAIXK7000-66-10 20:00:61924Faoutxdr FkyhuoeJMFHHUIFN5716-15-87 20:00:0013[facility] [place] IUIIOZWKA2774-76-13 20:00:0020.8[facility] MkqnnlfXDGOVFNZC0525-70-14 20:00:009.3 [facility] LmbzyjaDYLPSSXPM4632-82-89 20:00:006.7[facility] HermannCHEMISTRY 2011-11-28 20:00:001.7[facility] BbmyfniSYHZQIRZN3503-60-88 20:00:002.5[facility] IniupytSEMHCPPWW1885-80-61 20:00:0018[facility] HoujyrrYAWVBKNPL6193-65-39 20:00:0062[facility] IowahidOCOOMGZCD2923-11-02 20:00:0032[facility] OITQYDQYV9513-61-19 20:00:000.7[facility] AuxbbtcQYLRULVNTJ7374-73-51 20:00:001+ *ABN*(11/28/2011 15:00:00)[facility] BprovsdVOBZHIPYBU7542-06-66 20:00:000.1 [facility] LallmbaCKCCJOKTGA7183-67-10 20:00:000.0[facility] HermannHEMATOLOGY 2011-11-28 20:00:000.0[facility] KspsqxnEFDVHQSVZT4753-58-90 20:00:00Slight *ABN*(11/28/2011 15:00:00)[facility] HpmchmyLRXCMWZRTJ3315-04-13 20:00:00Slight *ABN*(11/28/2011 15:00:00)[facility] VnyniotLSPDTDEAGA9747-27-78 20:00:005.7 [facility] NjvclvpVJTADCGQOA4278-35-50 20:00:000.8[facility] HermannHEMATOLOGY 2011-11-28 20:00:000.2[facility] DlrsverRDNAHLSOSQ9943-21-10 20:00:000.0[facility] TphluzwDFUCAMCFVB8273-42-66 20:00:001.9[facility] EswlyprLKZPJKEWTU7269-28-23 20:00:0086.2[facility] PhauibeFKRVIJXQDH4058-43-28 20:00:0011.7[facility] [place] EHQPTMBSUF9261-76-75 20:00:0010.8[facility] WlgtvbdYFHCMFWAME9207-59-40 20:00:00 161[facility] MfxgamyUYBIZSLIIM6280-76-85 20:00:0035.6[facility] HermannHEMATOLOGY 2011-11-28 20:00:0012.4[facility] CbjzokgGRPFXFJLUF1867-58-69 20:00:00 Test Item Value Reference Range Interpretation Comments MCH (test code = MCH) 30.7 pg 27.0-31.0 N [facility] LsofdxeKICCWKWQUS1725-75-30 20:00:0086.1[facility] HermannHEMATOLOGY 2011-11-28 20:00:0033.6[facility] NhhhcxxIDRGZKIRYU2077-00-92 20:00:0012.0[facility] ZnynqkuEHCAGGFMJD4417-96-24 20:00:003.90[facility] VrssksuPOFSKWGDET8964-21-90 20:00:006.6[facility] KbztxusRUGTSZBIN5126-51-26 19:51:00See Note 5*NA*(11/28/2011 14:51:00)[facility] MxeinixBWACMGIGN4098-39-44 19:51:00Negative *NA*(11/28/2011 14:51:00)[facility] DnmeoibOWXRUDRAA0633-64-89 19:51:00Negative *NA*(11/28/2011 14:51:00)[facility] ZsenrnhJSENIMQZD8942-23-99 19:51:00Negative *NA*(11/28/2011 14:51:00)[facility] WsptuiaMWQYTKAKA0275-61-19 19:51:00Negative *NA*(11/28/2011 14:51:00)[facility] MxearmcXXHIUGIUI8889-62-68 19:51:00Negative *NA*(11/28/2011 14:51:00)[facility] VuipqttDXBFPLXVR2308-32-19 19:51:00Negative *NA*(11/28/2011 14:51:00)[facility] GjlzuvmHQZGFHDDX4108-29-70 19:51:00Negative *NA*(11/28/2011 14:51:00)[facility] UPQQDED1385-02-84 16:20:95718Cmmscmlo QunlyheRDZIUFHZX4440-09-52 15:30:00Negative (09/18/2011 10:30:00)[facility] WajhmaaAZMUNGKKQP1828-57-96 15:30:00None Seen (09/18/2011 10:30:00)[facility] BsgqulpEYCLMHWGQG9861-26-88 15:30:00None Seen (09/18/2011 10:30:00)[facility] PsvyevbVYLNNGJHYZ1130-95-74 15:30:00None Seen (09/18/2011 10:30:00)[facility] ZcbwqrqCBOJXXZKYD5638-45-08 15:30:00Few /HPF *ABN*(09/18/2011 10:30:00)[facility] WiycakuVQJIRHEVQU2366-04-60 15:30:00Performed (09/18/2011 10:30:00)[facility] LikthalNSAGNVAZAM2559-44-18 15:30:00Rare /LPF (09/18/2011 10:30:00)[facility] CenterKrbsbqfLNXIUDDQHU0266-10-91 15:30:0015 mg/dL *ABN*(09/18/2011 10:30:00)[facility] CenterNotjlkfMHRBPCMLJA8066-71-74 15:30:00>=1000 mg/dL *ABN*(09/18/2011 10:30:00) [facility] CenterEcxtmduDULWLWKNTN4897-27-22 15:30:00Trace *ABN*(09/18/2011 10:30:00) [facility] CenterGpwggyzKCDDHIJCRN2517-34-17 15:30:000.2[facility] HermannURINALYSIS 2011-09-18 15:30:00Negative (09/18/2011 10:30:00)[facility] CenterannURINALYSIS 2011-09-18 15:30:00Negative *NA*(09/18/2011 10:30:00)[facility]annURINALYSIS 2011-09-18 15:30:00Negative (09/18/2011 10:30:00)[facility]annURINALYSIS 2011-09-18 15:30:00Negative (09/18/2011 10:30:00)[facility] CenterannURINALYSIS 2011-09-18 15:30:00 Test Item Value Reference Range Interpretation Comments UA pH (test code = UA pH) 7.5 1 5.0-8.0 N [facility] FoofncaIQKXRCBXUP4798-94-36 15:30:00 Test Item Value Reference Range Interpretation Comments UA Spec Grav (test code = UA Spec 1.010 1 N Grav) [facility] VdllofhVHNCWDURHA8996-06-88 15:30:00Slight Cloudy (09/18/2011 10:30:00) [facility] CenterAfyzzwjMDEEBYILYZ4591-19-05 15:30:00Yellow *NA*(09/18/2011 10:30:00) [facility] CenterMizordlQOWCWWHKB1316-95-08 14:07:004.4[facility] HermannCHEMISTRY 2011-09-18 14:07:001.6[facility] HermannBEDSIDE GLUCOSE NHPTJXD8240-35-64 14:01:00 >400[facility] YfteribCDXPIXCAJ9476-13-13 13:52:0024[facility] HermannCHEMISTRY 2011-09-18 13:52:0032.0[facility] ZmvhxfwEKCUHWISM4438-14-47 13:52:0044[facility] LkojqhbBLVHQABQY3574-88-10 13:52:007[facility] SaqfwwqBMVOPOZKK7436-36-38 13:52:00 48.0[facility] XxxiclgJYAXDAKOC8413-29-18 13:52:0037.0[facility] HermannCHEMISTRY 2011-09-18 13:52:007.47[facility] QymncriYNBOTZRZW4696-96-67 13:52:0010.1[facility] YijfjxxPHDHPGGEO5263-77-31 13:52:0092[facility] RsmmqvyEYKXLKHLL3500-00-38 13:52:0030[facility] VwmntllEPJXMPEBJ0640-22-80 13:52:003.5[facility] [place] BYWRSHCHZ4855-57-86 13:52:91369Eehymowo RjreyxxWJBUHBIFG1835-20-29 13:52:001.3 [facility] VrkplyaUUMXJJOET6008-82-92 13:52:91629Yfdmtwkp HermannCHEMISTRY 2011-09-18 13:52:0017[facility] WrfehejFBVHEOBXN2764-94-41 13:52:0014.5[facility] LlvrtkvIVSOOBSPPQ1067-28-05 13:52:0012.0[facility] AbeoqgqHEZWHDRBQI3288-94-49 13:52:18036Dcpkezmw WmwbojyVSFEDLTYXP3304-90-72 13:52:0033.7[facility] [place] JSRRAZZSEL0021-96-79 13:52:00 Test Item Value Reference Range Interpretation Comments MCH (test code = MCH) 28.5 pg 27.0-31.0 N [facility] HppxumwMQUACQOTKU2944-61-25 13:52:0015.1[facility] HermannHEMATOLOGY 2011-09-18 13:52:0084.6[facility] QbhedjpSEYUMYXOOG6537-92-46 13:52:0036.4[facility] XijsrbxEKQFYSNNIN4944-47-75 13:52:0012.3[facility] PcrlrodEQYUOYFLOL9514-89-54 13:52:004.30[facility] DmlduncONJHUQQOQC8364-74-55 13:52:0011.7[facility] [place] WFCBMGWADK7326-53-36 13:52:002.9[facility] JrevekaMTFJKFGOFN4224-29-71 13:52:000.2 [facility] JzgsvzkJBBWORLHQQ0670-55-12 13:52:000.0[facility] HermannHEMATOLOGY 2011-09-18 13:52:000.0[facility] MnjsjbpPQBXNELWVM2007-90-29 13:52:000.3[facility] WewsjopLPITWDIIHE9775-90-51 13:52:0092.0[facility] GlkqrzoVVMIDYXZAP1288-04-70 13:52:004.9[facility] ElseitwLUTWIVYQUK0681-40-29 13:52:00Rare *ABN*(09/18/2011 08:52:00)[facility] ZvneaztFFCLEDBDCG9324-41-73 13:52:00Slight *ABN*(09/18/2011 08:52:00)[facility] JkzlbloLPNKMUOVWE5465-21-03 13:52:001+ *ABN*(09/18/2011 08:52:00)[facility] AhnwqulIGJABQTUYF7461-31-02 13:52:001+ *ABN*(09/18/2011 08:52:00)[facility] UepqtimTRCVFKIZXB8880-50-85 13:52:000.6[facility] AAYWWHFPCG6424-76-41 13:52:0010.8[facility] BelrkyqSCUKIUQLPM5934-71-23 13:52:00 0.0[facility] CtufbkwKWRLOREUTZ9852-68-80 13:52:001+ *ABN*(09/18/2011 08:52:00) [facility] VfcrzkjJZJPADHARA8966-70-02 13:52:00Negative *NA*(09/18/2011 08:52:00) [facility]annBEDSIDE GLUCOSE XDCTBEA9344-51-97 17:34:12674Bxgrvpic Vin BEDSIDE GLUCOSE UQXTEXN3179-24-54 11:43:0091[facility]annBEDSIDE GLUCOSE KTTVIID7744-07-40 02:45:22682Tpnztayr HlclkyvUXOLVJRHP7321-36-09 08:47:53545 [facility] YotddkaOTNJXZTPV5075-56-57 08:47:62736Hzytphtd HermannCHEMISTRY 2011-09-08 08:47:0029[facility] ThpipnbEBFTLDTCY1414-82-61 08:47:61319Ojdbczyk SsnzmlhIZZJSRPSL0405-25-78 08:47:0010[facility] JxfqtntQRUWPARFO9713-58-70 08:47:003.8[facility] JrmleshQDCWTROOZ7676-73-89 08:47:000.6[facility] [place] ETHGBQVCN3966-56-20 08:47:008.5[facility] WqutzopCRIOKSAQC0377-10-91 08:47:0014.8 [facility] OespwgrYGGMKJJYPW5222-89-07 08:47:00 Test Item Value Reference Range Interpretation Comments MCH (test code = MCH) 28.9 pg 27.0-31.0 N [facility] AmoooypWJXWZSBODY0946-30-01 08:47:0082.1[facility] HermannHEMATOLOGY 2011-09-08 08:47:0025.9[facility] BwjdhbtZOHPWDFOJZ3598-28-85 08:47:97070Alcimufo OrdlzkgOJXNUVKRAQ0650-66-12 08:47:0014.5[facility] YvarvzvFTPAMSJHHB8931-55-87 08:47:0035.2[facility] WzyxuxyAQLKDTRUYA1055-15-10 08:47:009.1[facility] [place] ODMYGJJZZN2130-19-49 08:47:003.15[facility] FztgqlpSXZVATQYJT7720-80-78 08:47:00 9.0[facility] FakmqmqKWHRMWVQMN4460-62-02 08:47:006.3[facility]annHEMATOLOGY 2011-09-08 08:47:000.0[facility] KczippvJRFSFOEWIF4393-88-50 08:47:000.0[facility] WcckgjaSGZENJKRYS6707-15-42 08:47:003.8[facility] AtavsvtMZBAKOXAYC7024-63-45 08:47:002.0[facility] NcveicxEKHCZPASGC3260-29-99 08:47:000.5[facility] Vin NMYMDAWXKZ5461-13-92 08:47:000.7[facility] MbxjqrpCYFAPGTMAN7257-67-65 08:47:006.2 [facility] NshcrtqDARPVQBGEG4602-83-80 08:47:0061.1[facility]annHEMATOLOGY 2011-09-08 08:47:0031.5[facility] PlycqlvQKVYRHRANG1326-55-21 08:47:000.4[facility] VqozphjEYBJJUMAM9918-43-94 10:54:0027[facility] PevufvhVYEWYYKCU3244-58-97 10:54:52371Qlezgsym ZscpgmxYFMBXRGZT0309-82-54 10:54:000.5[facility] Vin DQWLKNTNY9555-64-64 10:54:0010[facility] VxpzawwKDRUIZUHA8668-76-57 10:54:004.1 [facility] UdviwayPTEDQRQBU2611-76-66 10:54:11815Tufsntmv HermannCHEMISTRY 2011-09-07 10:54:0083[facility] LpmwfjwBYMMRWDWD6227-01-78 10:54:008.4[facility] NymnsikBFHNJMONS9251-13-53 10:54:0014.1[facility] AzcetoeRZXOHMZRIE2903-19-88 10:54:0035.5[facility] YnjdyiqKKFHVDGVKT2316-78-44 10:54:004.7[facility] [place] VVKIVPJYXT7316-18-91 10:54:0092.6[facility] GxegdxyOFFTBWEHCS0870-12-76 10:54:00 Test Item Value Reference Range Interpretation Comments MCH (test code = MCH) 31.4 pg 27.0-31.0 H [facility] PbljhszKGNAYSMQEZ2783-87-11 10:54:003.84[facility]annHEMATOLOGY 2011-09-07 10:54:0012.1[facility] StigsgaCBHGUSUFUU0803-21-19 10:54:70026Wiumxfmy FixidljWOIONASEMU2993-32-81 10:54:0012.7[facility] TfexdvcLHCCOGRSKI7182-29-13 10:54:0033.9[facility] TclhxpsLQSHPXANZA0660-32-42 10:54:007.2[facility] RQXASOBXNV3357-36-54 10:54:000.95[facility] EqbjnsnTSYCZCOYVV0343-95-78 10:54:00 Test Item Value Reference Range Interpretation Comments PT (test code = PT) 12.7 s 12.0-14.7 N [facility] OhvdtxzIOSWHMIFAK8571-54-59 10:54:00 Test Item Value Reference Range Interpretation Comments PTT (test code = PTT) 28.5 s 22.9-35.8 N [facility] IkpjckwFYQOHAJUFU4240-47-58 10:54:000.1[facility]annHEMATOLOGY 2011-09-07 10:54:000.0[facility] TbjiqpmRAGFERWRMA4598-39-20 10:54:000.4[facility] KpatfftUFGJKADCHZ0540-38-92 10:54:002.1[facility] IdpwanaHXXBIWKDKD4617-88-72 10:54:009.0[facility] SwdiuvjUSTTCBXCMI2540-35-24 10:54:002.4[facility] BKJJEKAPLI7748-27-22 10:54:000.4[facility] OilyhwvXNTVFXCICF6606-64-62 10:54:002.0 [facility] XtrmdfvZCELLLYKZN7500-60-30 10:54:0042.8[facility]annHEMATOLOGY 2011-09-07 10:54:0045.4[facility] JygkadtQTLSFQTGI1591-55-27 10:02:21416Rxvjfakj RvsvthlOHTAFYOEQ0217-68-51 10:02:004.1[facility] XywivdtFYRMFKIHM9188-98-65 10:02:87624Tfnkfifc PxpbxhbYRYOWUWDT4982-20-89 10:02:0029[facility] [place] VPBTLDVLT1281-29-71 10:02:008.7[facility] GtoqjscNIRNWQDNN6764-46-63 10:02:006 [facility] FbptxclTQXVKOPMJ8241-78-07 10:02:000.6[facility]annCHEMISTRY 2011-09-07 10:02:17380Juvebscc YeedpweVQBAOVHWG8785-92-66 10:02:0013.1[facility] GbrxpusZMHUJMKBDK4655-14-25 10:02:000.0[facility] DydgkpmFRXUYHOXLV1888-34-14 10:02:000.3[facility] BbcusajNGLAOMJYAU7460-61-80 10:02:000.1[facility] Vin LGEFJUOMCQ4592-91-59 10:02:002.8[facility] LkhhvwfTMYVWHASBT6774-48-99 10:02:001.7 [facility] YbiomzrZYFSZTPTML9037-92-60 10:02:000.6[facility]annHEMATOLOGY 2011-09-07 10:02:006.9[facility] VhcnaunPRXGSDLZFF8900-45-41 10:02:002.0[facility] DzzzcbkXXHVRUOBNJ4991-34-78 10:02:0055.8[facility] SmyoflpWEHFNCARDH0622-92-24 10:02:0034.7[facility] SgauuytPDCSVCYQKQ6430-00-43 10:02:00 Test Item Value Reference Range Interpretation Comments PTT (test code = PTT) 32.2 s 22.9-35.8 N [facility] NizpzpqWPXFDXSWWJ8681-81-53 10:02:00 Test Item Value Reference Range Interpretation Comments PT (test code = PT) 13.3 s 12.0-14.7 N [facility] SsvhuazBYVBXJZLAN6040-12-28 10:02:001.01[facility]annHEMATOLOGY 2011-09-07 10:02:0027.5[facility] WycmuowPYYCPGKBBV4930-69-93 10:02:003.34[facility] GfamvupUPHUAFRHID8894-55-88 10:02:009.7[facility] AocvbnwGKLOPXBRFS1998-99-82 10:02:005.0[facility] GcuoqdwQKWBHJVAUF7131-55-19 10:02:009.2[facility] XDKCPUWVUH8664-88-40 10:02:47489Zuznzluu LivlfvsGKXUUYYYQN5354-59-13 10:02:00 14.3[facility] UjgzglfHIXBEKVDIS1985-65-29 10:02:0035.2[facility]annHEMATOLOGY 2011-09-07 10:02:00 Test Item Value Reference Range Interpretation Comments MCH (test code = MCH) 28.9 pg 27.0-31.0 N [facility] JmkgavdVUURJYDOIS4112-94-68 10:02:0082.1[facility]annCHEMISTRY 2011-09-03 09:24:002.1[facility] FhxulxcMOZITUGSA4601-24-24 17:10:0037.0[facility] IuiiicoBUICREXZO9295-79-40 17:10:0027.0[facility] UaxamfkHMVOISKDY3301-09-07 17:10:0047[facility] EtaabsfSZXDVQTFG1333-66-32 17:10:007.37[facility] Vin XXUHDKZVJ9975-13-14 17:10:001[facility] RbflngbMCMYICNJX1723-28-81 17:10:0027.2 [facility] MbwnkurOWYLAQXDU5213-84-97 17:10:0019[facility]annCHEMISTRY 2011-09-01 13:09:001.0[facility] PdxwzdoGHDRSYNMF2667-61-75 12:20:00Negative (09/01/2011 07:20:00)[facility] VlksetiGLRJGFKGRW4897-50-75 12:20:00Occasional /LPF (09/01/2011 07:20:00)[facility] PqmiqdoJERDEQYXSA3449-14-71 12:20:00Negative (09/01/2011 07:20:00)[facility] VcjrwdxBXIVJDUMTB1237-41-20 12:20:00Negative (09/01/2011 07:20:00)[facility] UsvpsrcOFOPDGUZWG4924-80-97 12:20:000.2[facility] WckkbyzEABAORRIMJ0700-11-17 12:20:00Negative (09/01/2011 07:20:00)[facility] VximojeYENUKEOLBE2931-93-80 12:20:00>=80 mg/dL *ABN*(09/01/2011 07:20:00) [facility] AattxweCBYVYURKKX0784-29-51 12:20:00Negative (09/01/2011 07:20:00) [facility] XlpziyeTAURYSZMOA5062-56-38 12:20:00 Test Item Value Reference Range Interpretation Comments UA pH (test code = UA pH) 6.0 1 5.0-8.0 N [facility] AxscqfbCDTCRCINXS7183-94-22 12:20:00Negative (09/01/2011 07:20:00) [facility] RdodohyIWOGKJPQZR0742-40-75 12:20:00>=1000 mg/dL *ABN*(09/01/2011 07:20:00)[facility]JmzvyggREAHVINBXZ4905-77-92 12:20:00 Test Item Value Reference Range Interpretation Comments UA Spec Grav (test code = UA Spec 1.035 1 H Grav) [facility] TqyedxcFTRSRQMMPB3737-20-23 12:20:00Clear (09/01/2011 07:20:00)[facility] CenterRnrljfxABCWEVTXIA9489-30-87 12:20:00Yellow *NA*(09/01/2011 07:20:00)[facility] GnkztczUNNIMMAKY4047-46-32 08:00:002.8[facility] TpqjqdlBJHJJDNDL4961-30-59 07:47:001.5[facility] YnjcdbmSOSIAWKZIM4138-56-09 07:47:00Slight (09/01/2011 02:47:00)[facility] BuvxdwlOLDSWJSVSM0111-12-27 07:47:001+ *ABN*(09/01/2011 02:47:00)[facility] XdzqflsLPCHCUGTFY7367-47-87 07:47:00Slight *ABN*(09/01/2011 02:47:00)[facility] EfwodwbTULETYVRNR2878-39-05 07:47:00Slight *ABN*(09/01/2011 02:47:00)[facility] HermannBEDSIDE GLUCOSE BHPIHFR8203-80-54 17:02:33188Ccugrvsh HermannBEDSIDE GLUCOSE LELOJQY9068-48-92 13:45:23115Wqjvdmua HermannCHEMISTRY 2011-08-23 10:22:003.0[facility] YxfxczsKYYABEUUF8850-24-84 10:22:001.8[facility] BztlmbyYSOBQRVEG1071-95-52 10:22:85056Ubdqigin JoepeszLPALEHEGO1926-45-08 10:22:003.0[facility] DkbaauiUIEXOEVRA5406-03-79 10:22:89133Ifrshxxg [place] HMOPQJLNV1334-16-75 10:22:000.6[facility] IiluddoLVMKRPGJZ5595-19-99 10:22:0023 [facility] FtvionbJKGJFOTOQ8617-75-72 10:22:007.3[facility] HermannCHEMISTRY 2011-08-23 10:22:24584Wcwaesxv RxxvikbCTKYXBONL2861-01-55 10:22:0014.0[facility] CuuvkmaNDDQJUIBP8259-48-89 10:22:005[facility] EoawkaeEOTLNYBZUY3587-36-79 10:22:0069.6[facility] SsbedltZQYTDDXDDJ3998-81-71 10:22:0021.5[facility] Vin FIAKOJWCJO4516-14-07 10:22:007.6[facility] KtoyaotTSZWDLJFXM6922-11-73 10:22:001.0 [facility] AnycruxMWYPJPEEFM5790-16-41 10:22:000.3[facility] HermannHEMATOLOGY 2011-08-23 10:22:004.8[facility] KvvirleMTURKDHBPQ4521-74-27 10:22:000.1[facility] KsdtiumIBZJOZQTEE4162-03-66 10:22:001.5[facility] VurpyqcZGQODOMTPR7564-85-48 10:22:000.5[facility] BamgjjkCJOELNSBFR4989-92-83 10:22:000.0[facility] [place] LEUBAFVFRB3354-32-03 10:22:0011.0[facility] RnjwsahLARTJTNPXG4263-54-32 10:22:00 161[facility] IbcawjxAYHMECBHPY7564-89-55 10:22:00 Test Item Value Reference Range Interpretation Comments MCH (test code = MCH) 29.6 pg 27.0-31.0 N [facility] CjiejggIQGBEHHABZ0813-53-13 10:22:0035.4[facility] HermannHEMATOLOGY 2011-08-23 10:22:0014.1[facility] GajicjkLQIJCUAKIC0402-71-47 10:22:006.8[facility] ClcvqygDZYVCKFZTK3163-76-80 10:22:0083.5[facility] UktchayXIEDKBOSSD8553-30-43 10:22:004.44[facility] NnjcftnTVEQCCGLCP4704-09-01 10:22:0013.1[facility] Vin GTZJTOHHMF3553-40-81 10:22:0037.1[facility] HermannBEDSIDE GLUCOSE TESTING 2011-08-23 02:20:37113Wycxkith HnzmjlvCABSTSXJS9516-15-93 09:47:002.5[facility] EopimrwSIUHVVTQW6867-04-98 09:47:64289Mtmitoup DzmnjpjQACTHIFKH8914-88-31 09:47:007[facility] DciqblgKMHFAGSYI3722-20-58 09:47:0019[facility] HermannCHEMISTRY 2011-08-22 09:47:000.3[facility] QjvilfjOHJAOAXNZ6126-43-14 09:47:64133Ehglwspm LjclgynRZFFKDAWX4215-81-48 09:47:66703Udrfnnql AyepeyhZWKRWLNCG2629-52-07 09:47:003.6[facility] QbwrjrePJZAOZSZA2197-40-93 09:47:007.9[facility] Vin BZHPAQJGI0070-24-88 09:47:0018.6[facility] WmcwwguHUQAAEIFI2209-95-41 09:47:001.6 [facility] RuhxaihMRTTPULOKY1077-08-25 09:47:000.0[facility] HermannHEMATOLOGY 2011-08-22 09:47:000.4[facility] RimupheBBAMRMCGPZ6635-71-83 09:47:000.5[facility] PacbeyaZVHRZLLNQQ9886-97-49 09:47:005.9[facility] BpdjvgkCNLOGITDNQ9419-95-26 09:47:001.2[facility] ShfjqztQICLJXYDMK9834-36-79 09:47:000.5[facility] Vin WYTKQLEVXH3951-30-96 09:47:000.0[facility] CtxhjfkFJHGMGZNDM5456-27-17 09:47:00 76.9[facility] YbavkqqICXSNLMTKT7036-37-10 09:47:0015.9[facility] HermannHEMATOLOGY 2011-08-22 09:47:006.3[facility] UpaaagcUSUTWOZZDO0170-57-50 09:47:0082.8[facility] KpcvlzfMXNIMADEAR0641-64-17 09:47:0039.7[facility] DltspciULTLPYUOOS0350-47-85 09:47:00 Test Item Value Reference Range Interpretation Comments MCH (test code = MCH) 29.1 pg 27.0-31.0 N [facility] ZmrrmhgJIULZBPSTS9249-39-63 09:47:0014.0[facility] HermannHEMATOLOGY 2011-08-22 09:47:0035.2[facility] KflmljkSLFJCXQTHS5803-89-63 09:47:0013.9[facility] IoofkpwKYBYNNHFNP9616-05-26 09:47:17693Jjnmatyz CzhbwrwBANUNQIURE8715-60-71 09:47:0011.9[facility] RvxtxfaZAYKDQZIOG9885-35-02 09:47:007.7[facility] [place] XHCEADJYEW0119-28-72 09:47:004.80[facility] ZaethueFFIAWRBZX9480-37-36 10:28:002.6 [facility] MoqgmzbSXBVNLUJY6891-70-80 10:28:001.8[facility] HermannCHEMISTRY 2011-08-21 10:28:003.7[facility] TovbnuvVHGKOPIVL0945-45-34 10:28:25424Iesvrqaq VmsexckSDJISZZTR2289-84-86 10:28:000.6[facility] ZomaaovBHEHDISYN2935-33-46 10:28:0016[facility] KrhcxzaPUAYISARZ4734-45-69 10:28:14294Yutyakdl Vin NIVBZJNRT3647-65-39 10:28:008.3[facility] LonnhlaBYZBNFWBR9267-84-52 10:28:0019.7 [facility] EjouvctVOLKEXEMD2209-09-29 10:28:0099[facility] HermannCHEMISTRY 2011-08-21 10:28:0022[facility] TlsufjmCZTYSVCPUX0841-33-87 10:28:15286Ztyvwckm AfpjlsjYVGHYQMLQV7556-62-60 10:28:0012.0[facility] WsdwecvFSFTELJHTQ4786-81-09 10:28:007.3[facility] JolpmedAVBWFXCNQG3288-50-75 10:28:0014.6[facility] Vin QRRHCQHJSK1629-05-17 10:28:0035.0[facility] ShhaqxaEAITOCYFFW5966-34-39 10:28:00 4.54[facility] CmnrwurWRWPBJPOOC9844-69-71 10:28:0037.6[facility] HermannHEMATOLOGY 2011-08-21 10:28:0082.9[facility] MaikamqFRGNSNSEQK5748-12-46 10:28:00 Test Item Value Reference Range Interpretation Comments MCH (test code = MCH) 29.0 pg 27.0-31.0 N [facility] WtzwudhYVQDAVWOYQ1550-00-72 10:28:0013.2[facility] HermannHEMATOLOGY 2011-08-21 10:28:00Slight *ABN*(08/21/2011 04:28:00)[facility]annHEMATOLOGY 2011-08-21 10:28:00Slight (08/21/2011 04:28:00)[facility]annHEMATOLOGY 2011-08-21 10:28:000.0[facility] KumvkpgESOHHHQWKZ7298-49-50 10:28:00Slight (08/21/2011 04:28:00)[facility] XwcsrqzOOAILJCAJG9989-09-55 10:28:000.6[facility] JhdbwaaGXNWXBRTFX8702-22-37 10:28:000.0[facility] XuswrqgTSKOHVTJEF1274-64-94 10:28:005.3[facility] XfzfasjANLMFAIVUV1034-75-60 10:28:001.3[facility] Vin DXWOQYYGJV9895-43-57 10:28:000.5[facility] NzfjdanDDDZXAYICB6096-12-71 10:28:008.5 [facility] PzbwbfcPKANMZLQIQ1112-23-31 10:28:000.3[facility] HermannHEMATOLOGY 2011-08-21 10:28:0017.3[facility] XfkjixvBVBCUUJDJA9627-18-34 10:28:0073.4[facility] VhghkxyHRDQGYYCH8958-78-24 21:58:00Negative (08/19/2011 15:58:00)[facility] PhupuinVKUTKJBJU9096-80-44 21:58:14492Omaoomhk OebcgcgDQHLIRBBE6234-44-92 21:58:0054[facility] KfrgxywEQZNVGUIA2210-79-66 21:58:08496Lrwwvkrt [place] EYOHYEPRK9914-43-24 21:58:000.1[facility] YmswkipZCLMAPYDU3908-79-23 21:58:000.9 [facility] GdyaevjXXIXNLYBG2001-36-42 21:58:004.4[facility] HermannCHEMISTRY 2011-08-19 21:58:008.8[facility] ZgrjawcSAPEEENUX7585-96-52 21:58:000.8[facility] BaqydxmQGRQKNIUF4291-35-95 21:58:0036[facility] OecktzeANLUHIVVT3228-70-95 21:58:004.4[facility] OdsxftuLKGBGXVYW5605-89-52 21:58:001.0[facility] Vin LQGDXVHMII3834-75-08 21:58:00Occasional /HPF (08/19/2011 15:58:00)[facility] DhkcyzhMYPTSUHOEI7607-26-85 21:58:003-5 /HPF *ABN*(08/19/2011 15:58:00)[facility] ElddjwzZCCAFNCLIY2546-17-69 21:58:003[facility] GeopmgbBOYHSJHXIS3270-72-07 21:58:00Few /LPF (08/19/2011 15:58:00)[facility] LpluwybXDMQZBSNVK1654-17-09 21:58:00Occasional /HPF *ABN*(08/19/2011 15:58:00)[facility] HermannURINALYSIS 2011-08-19 21:58:000.2[facility] VzxcyxwUBEOWMJRTF2738-65-47 21:58:00Rare /LPF (08/19/2011 15:58:00)[facility] PdijhzzTQFKAUYBNK9121-93-49 21:58:00Performed (08/19/2011 15:58:00)[facility] LtonwjpMGXOZNZMKJ7334-20-72 21:58:00Negative (08/19/2011 15:58:00)[facility] PnsulpwWRROMPFCTM7749-10-55 21:58:00Negative (08/19/2011 15:58:00)[facility] AvgtvfbTKNXIEUYIG7003-49-64 21:58:00 Test Item Value Reference Range Interpretation Comments UA pH (test code = UA pH) 5.5 1 5.0-8.0 N [facility] OgjlbgbHPNFICZVWN2804-52-66 21:58:00Trace *ABN*(08/19/2011 15:58:00) [facility] AxdvpxqONAKFBSZUJ2798-80-65 21:58:00Negative (08/19/2011 15:58:00) [facility] FqrebkaTRDPQMIHKR9656-12-48 21:58:0080 mg/dL *ABN*(08/19/2011 15:58:00) [facility] IkitcnzYLALUPYCCU3113-79-42 21:58:00>=1000 mg/dL *ABN*(08/19/2011 15:58:00)[facility] TkiqyccTISWEMRFZN1104-66-21 21:58:00Negative (08/19/2011 15:58:00)[facility] WdugimsXGBKLXZVGA3852-84-59 21:58:00Slight Cloudy (08/19/2011 15:58:00)[facility] VshteclPQSTQEEUHH0118-39-59 21:58:00 Test Item Value Reference Range Interpretation Comments UA Spec Grav (test code = UA Spec 1.025 1 Grav) [facility] QqhruxmBHMIVOCYDQ0706-28-94 21:58:00Yellow (08/19/2011 15:58:00) [facility] UwgipfqHAEKFDETT9325-44-33 21:13:0023[facility] HermannCHEMISTRY 2011-08-19 21:13:001.0[facility] TslmlodTRSOBYIUU4184-54-97 21:13:75368Cukzcxxc ThhqycvXNTIAOWQU7374-53-51 21:13:0056[facility] HglbvfkZAFNZYISN9747-34-83 21:13:009.0[facility] BukxbkeYBGPDUXAD2966-88-15 21:13:004.8[facility] Vin ITRFDYSPQ4492-12-36 21:13:004.2[facility] LbioysaVOVUBUJXS4683-56-23 21:13:001.1 [facility] YhukqjzWRJUEGZXP5237-79-92 21:13:0030[facility]annHEMATOLOGY 2011-08-19 21:13:00Normal (08/19/2011 15:13:00)[facility]annHEMATOLOGY 2011-08-19 21:13:00Slight *ABN*(08/19/2011 15:13:00)[facility]annHEMATOLOGY 2011-08-19 21:13:000.0[facility] JkbifncTUZHCFYMZK4345-92-19 21:13:000.0[facility] NwyqzhnYYQBOFOPN5505-66-11 21:10:0074.0[facility] FaicpsiJRCKYZULU4558-50-05 21:10:0037.0[facility] YabzurpDUWSDEUNT0871-68-64 21:10:0042[facility] Vni LMCXFTBXO4209-80-04 21:10:0017.3[facility] ScpaewjPIAOUHGOW3856-34-86 21:10:007.34 [facility] IyszlcgXLVQURJLA9571-01-66 21:10:0032[facility] HermannCHEMISTRY 2011-08-19 21:10:00-7[facility] QqdzksxSBPHNSEDWS2621-21-75 20:34:00Negative *NA*(08/19/2011 14:34:00)[facility] [place]
--- OUTSIDE RECORDS SUMMARY | 2020-06-10 06:53 | XMS REPORT | Summary of Care ---
:1980 Author Organization [address] [address] Care Team Providers Name Role Phone Vivien Morin DO Pheresis Nurse Joaquin Valdez MD Primary Care Provider Reason for Visit Reason Comments Assessment Encounter Details Date Type Department Care Team Description 03/07/2020 Telephone [facility] General Josy Sawyer MD Assessment Surgery- [address] [address] [address] [place] [address] [phone] Allergies Active Allergy Reactions Severity Noted Date [...] as of this encounter (statuses as of 03/12/2020) Medications Medication Sig Dispensed Refills Start Date [...] as of this encounter (statuses as of 03/12/2020) Active Problems Problem Noted Date Malfunction of arteriovenous dialysis fistula, initial encounter 11/21/2018 Overview: Added automatically from request for jose myersy [id number] Candidiasis of vulva and vagina 08/08/2018 Screening for breast cancer 08/08/2018 Pyogenic granuloma of conjunctiva, right 04/06/2018 Overview: Added automatically from request for jose reynaldo [id number] 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 Increased intraocular pressure 07/08/2017 Fall 04/02/2017 Pneumonia 03/31/2017 Diabetes mellitus 03/25/2017 Overview: Added automatically from request for jose reynaldo [id number] Pseudotumor cerebri 03/15/2017 Peripheral neuropathy 01/03/2017 Obesity [...] as of this encounter (statuses as of 03/12/2020) Resolved Problems Problem Noted Date Resolved Date Diabetes, type 1.5, uncontrolled, managed as type 2 04/29/20 15 09/17/2015 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 Sawyer at 11 a.m, she is supposed to have dialysis tomorrow at 6 a.m., but she stated she is having issues with her fistula and does not know if she shoulddo dialysis before her appointment. Please call patient to answer questions. documented in this encounter Plan of Treatment Date Type Specialty Care Team Description 04/05/2020 Office Visit Cardiology Oz Olivares MD [address] [place] [address] 05/01/2020 Office Visit Endocrinology Diabetes & Tee Gonzalez MD Metabolism [address] [place] [address] [phone] Health Maintenance Due Date Last Done Comments VARICELLA VACCINES (1 of 2 - 10/18/1983 2-dose childhood series) PNEUMOCOCCAL 0-64 YEARS COMBINED 1988 SERIES (1 of 1 - PPSV23) DTaP,Tdap,and Td Vaccines (1 - 2001 Tdap) [...] of this encounter Implants Implanted Type Area Ethnic Origins Teacher Device Shelf Model / Identifier Expiration Serial / Date Lot Bio Eye Implant, Integrated Orbital Impl ants Ioi 18mm Perforated #[id number] - [id number] ORBITAL Left: INTEGRATED 09/18/2018 [id number] / Implanted: Qty: 1 on 01/17/2018 by Latrell Mcknight MD at [facility] Eye ORBITAL IMPLANTS [id number] / [id number] documented as of this encounter Results Not on filedocumented in this encounter Insurance Payer Benefit Plan / Subscriber ID Effective Dates Phone Addre ss Type Group MEDICARE MEDICARE PART [id number] 2014-Presen [phone] Medicare A & B t 2 [id number] [place] [id number] [facility] MEDICAID OF [id number] 2020-Presen [phone] [address] Medicaid [id number] [place] [address] documented as of this encounter Advance Directives Name Relationship Healthcare Agent Communication Relationship Jennifer Gunderson Mother Health Care Agent [place] Found Sibling First Alternate Health Care Agent (Mobile)
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
--- OUTSIDE RECORDS SUMMARY | 2020-06-10 06:54 | XMS REPORT | Summary of Care ---
:1980 Author Organization [facility] Address [address] [place] [address] Care Team Providers Name Role Phone Vivien Morin DO Supervisor Production Joaquin Valdez MD Primary Care Provider Reason for Visit Reason Comments LAB Encounter Details Date Type Department Care Team Description 04/03/2020 Portfolio Analyst Visit [facility] AdMona robles MD [address] [place] [address] [address] [place] [address] Well woman exam with routine gynecologic al exam; Professional Office 2, [facility] Lab Screen for STD (sexually transmitted dis ease) Building Phlebotomy Lab Professional Office Building [address] [place] [address] , [address] [place] [address] Allergies Active Allergy Reactions Severity Noted Date [...] as of this encounter (statuses as of 04/03/2020) Medications Medication Sig Dispensed Refills Start Date [...] Active tablet mouth 2 (two) times daily. 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 07/22/2017 Overview: Added automatically from request for jose reynaldo [id number] Neovascular glaucoma, left eye 07/08/2017 Increased intraocular pressure 07/08/2017 Fall 04/02/2017 Pneumonia 03/31/2017 Diabetes mellitus 03/25/2017 Overview: Added automatically from request for jose reynaldo [id number] Pseudotumor cerebri 03/15/2017 Peripheral neuropathy 01/03/2017 Obesity [...] as of this encounter (statuses as of 04/03/2020) Resolved Problems Problem Noted Date Resolved Date Diabetes, type 1.5, uncontrolled, managed as type 2 04/29/20 15 09/17/2015 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 Total of 1 attempts were made. Slight pressure and a bandage/dressing were applied to the site(s). The patient experienced no complications. The following specimens were processed according to instructions and sent to [facility] laboratories per lab order on today3: LT BLUE SST 3 RED 1 LAV PPT DK GREEN (LiHep) DK GREEN (SodH) BARNES DK BLUE (K2) DK BLUE (S) ACD Blood Culture NIPT/NTD documented in this encounter Plan of Treatment Date Type Specialty Care Team Description 04/05/2020 Office Visit Cardiology Oz Olivares MD [address] [facility] [address] [place] [address] 05/01/2020 Office Visit Endocrinology Diabetes & Gonzalez, Tee hager MD [id number] [place] [address] 07/09/2020 Nurse Visit Obstetrics & Gynecology Nurse, [facility]' s [facility] 04/08/2021 Office Visit Obstetrics & Gynecology AdGina robles MD [address] [facility] [address] [place] [address] Health Maintenance Due Date Last Done Comments [...] of this encounter Implants Implanted Type Area Supervisor Accounting Clerks Device Shelf Model / Identifier Expiration Serial / Date Lot Bio Eye Implant, Integrated Orbital Impl ants Ioi 18mm Perforated #[id number] - [id number] ORBITAL Left: INTEGRATED 09/18/2018 [id number] / Implanted: Qty: 1 on 01/17/2018 by Latrell Mcknight MD at [facility] Eye ORBITAL IMPLANTS [id number] / [id number] documented as of this encounter Results Not on filedocumented in this encounter Visit Diagnoses Diagnosis Well woman exam with routine gynecologic al exam Routine gynecological examination Screen for STD (sexually transmitted dis ease) Screening examination for venereal disea se documented in this encounter Insurance Payer Benefit Plan / Subscriber ID Effective Dates Phone Addre ss Type Group MEDICARE MEDICARE PART [id number] 2014-Presen [phone] [address] Medicare A & B t 2 [id number] DHEERAJ GEE [address] [facility] MEDICAID OF [id number] 2020-Presen [phone] [address] Medicaid [place] t 0 [id number] [place] [address] documented as of this encounter Advance Directives Name Relationship Healthcare Agent Communication Relationship Jennifer Gunderson Mother Health Care Agent [place] Found Sibling First Alternate Health Care Agent (Mobile)
--- OUTSIDE RECORDS SUMMARY | 2020-06-10 06:54 | XMS REPORT | Summary of Care ---
:1980 Author Organization [facility] - [facility] Address [address] [place] [address] Care Team Providers Name Role Phone Vivien Morin DO Wireless Sales Representative Joaquin Valdez MD Primary Care Provider Reason for Visit Reason Comments Well Woman Exam MISSED MENSES STD Screen Encounter Details Date Type Department Care Team Description 04/02/2020 Office Visit [facility] Women's AdumMona MD Well woman exam with routine gynecologic al exam (Primary Dx); Healthcare- [address] Screen for STD (sexually tra nsmitted disease); [address] [place] [address] Missed menses; [address] Initiation of Depo Provera; [place], [place] Family history of breast cancer in [...] Added automatically from request for jose jacobs [id number] Candidiasis of vulva and vagina 08/08/2018 Screening for breast cancer 08/08/2018 Pyogenic granuloma of conjunctiva, right 04/06/2018 Overview: Added automatically from request for jose myersy [id number] 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 You must not be before getting an injection. The injection is usually given during the first 5 days after the start of a menstrual period or 6 weeks after delivery of a baby. Talk to your reproduction production manager regarding the use of this medicine in children. Special care may be needed. These injections have been used in female children who have started having menstrual periods. What side effects may I notice from receiving this medicine? Side effects that you should report to your doctor or health resident care manager rn as soon as possible: allergic reactions like [...] attention (report to your doctor or health resident care manager rn if they continue or are bothersome): acne [...] like ethotoin, felbamate, oxcarbazepine, phenytoin, topiramate modafinil [facility]'s wort What if I miss a dose? [...] be given to you by a health resident care manager rn. What should I tell my health care [...] risk for weak bones. Ask your health resident care manager rn how you can keep strong bones. You may have a change in bleeding pattern or irregular periods. Many females stop having periods while taking this drug. If you have received your injections on time, your chance of being is very low. If you think you may be , see your health resident care manager rn as soon as possible. Tell your health resident care manager rn if you want to get within the next year. The effect of this medicine may last a long time after you get your last injection. NOTE:This sheet is a summary. It may not cover all possible information. If you have questions aboutthis medicine, talk to your doctor, pharmacist, or health care provider. Copyright 2018 Pin or Peg documented in this encounter Progress Notes Mona [...] comorbiditiesh and has recently referred her to jacket changer to take over care of her DM. 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 [place] [address] 2, [facility] Lab 04/05/2020 Office Visit Cardiology Oz Olivares MD [address] [place] [address] [address] [place] [phone] 05/01/2020 Office Visit Endocrinology Diabetes & Gonzalez, Tee hager MD [facility] [address] [place] [address] [phone] 07/09/2020 Nurse Visit Obstetrics & Gynecology Nurse, [facility] Women' s Health 04/08/2021 Office Visit Obstetrics & Gynecology Gina Bhat MD [address] [place] [address] [place] [phone] Name Type Priority Associated Diagnoses Order S [...] of this encounter Implants Implanted Type Area Wind Turbine Mechanical Engineer Device Shelf Model / Identifier Expiration Serial / Date Lot Bio Eye Implant, Integrated Orbital Impl ants Ioi 18mm Perforated #[id number] - [id number] ORBITAL Left: INTEGRATED 09/18/2018 [id number] / Implanted: Qty: 1 on 01/17/2018 by Latrell Mcknight MD at [facility] Eye ORBITAL IMPLANTS [id number] / [id number] documented as of this encounter Procedures Procedure [...] Addre ss Type Group MEDICARE MEDICARE PART [id number] 2014-Presen [phone] [address] Medicare A & B t 2 [id number] DHEERAJ GEE [phone] [facility] MEDICAID OF [id number] 2020-Presen [phone] [address] Medicaid [place] t 0 [id number] [place] [address] documented as of this encounter Advance Directives Name Relationship Healthcare Agent Communication Relationship Jennifer Gunderson Mother Health Care Agent Lima Found Sibling First Alternate Health Care [phone] Agent (Mobile)
--- OUTSIDE RECORDS SUMMARY | 2020-06-10 06:54 | XMS REPORT | Summary of Care ---
:1980 Author Organization [facility] - Health Address [address] [place] [address] Care Team Providers Name Role Phone Vivien Morin DO Center Medical Specialist Joaquin Valdez MD Primary Care Provider Reason for Visit Reason Comments Other Fistula complication Encounter Details Date Type Department Care Team Description 04/02/2020 Emergency ADC-Emergency Marlin Khan, Complicat ion of arteriovenous dialysis fistula, initial encounter (Primary Dx); Department CHILD DEVELOPMENT PROFESSOR Right arm pain [address] [phone] Allergies Active Allergy Reactions Severity Noted Date [...] up to 7 days. 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 documented as of this encounter Last Filed Vital Signs Vital Sign Reading Time Taken Comments Blood Pressure 154/86 04/02/2020 12:20 AM CDT Pulse 93 04/02/2020 12:20 AM CDT Temperature 37.9 C (100.2 F) 04/02/2020 12:20 AM CDT Respiratory Rate 18 04/02/2020 12:20 AM CDT Oxygen Saturation 99% 04/02/2020 12:20 AM CDT Inhaled Oxygen Concentration - - Weight 82.3 kg (181 lb 7 oz) 04/02/2020 12:20 AM CDT Height 157.5 cm (5' 2") 04/02/2020 12:20 AM CDT Body Mass Index 33.19 04/02/2020 12:20 AM CDT documented in this encounter Discharge Instructions Verona MarlinLUIZA - 04/02/2020Your dialysis fistula appears to be functioning well. Please call your manager respiratory care in the morning for further recommendations from him Thank you. AttachmentsThe following attachments cannot be sent through Care Everywhere. Strains and Sprains, Self-Care for (Vincentian)RICE (Vincentian)documented in this encounter Miscellaneous Notes ED Nurse Note - Nela Hansen RN - 04/02/2020 1:04 AM CDTPt given printed and verbal discharge instructions regarding fistula problem, encouraged hydration, Prescriptions provided Tylenol #3 Discussed ibuprofen and to take with food to avoid GI distress. Discussed Tylenol # 3 side affects and to avoid driving/operating machinery/or engaging in activities requiring alertness while taking. Pt verbalized understanding of instructions, pt awake alert oriented, resp reg unlabored, skin w/d, color appropriate for race, moves all ext well,pt encouraged to follow up with pcp Advised to seek medical attention for new/prolonged/worsening of symptoms, No adverse reaction to meds given in ER noted upon discharge Awake, alert oriented, resp reg unlabored, skin w/d, pt leaving amb with steady gait, in no apparent distress, D Nurse Note - Melanie Gutierres RN - 04/02/2020 12:32 AM CDTThrill at fistula site present, patient states that she has been "ballooned on my chest" due to recur rent blood clots. D Nurse Note - Melanie Gutierres RN - 04/02/2020 12:21 AM CDTCC: patient presents to the ER with complaints of a stinging, shooting pain at her fistula site in the right upper arm. Patient states that the symptoms have been present for the past 45 minutes. PMHx: see history LMP: 04/02/2020 Tetanus: UTD Awake, alert, oriented, resp reg unlabored, skin warm and dry, color appropriate for race, moves allext without difficulty, using wheelchair. Appears in no distress. documented in this encounter Plan of Treatment Date Type Specialty Care Team Description 04/02/2020 Initial Obstetrics & Gynecology David Bhat MD Visit [address] [place] [address] [address]. [address] [place] [address] 04/05/2020 Office Visit Cardiology Oz Olivares MD [facility] [address] [facility] [address] [place] [address] 05/01/2020 Office Visit Endocrinology Diabetes & Gonzalez, Tee hager MD Met[facility] [place] [address] Health Maintenance Due Date Last [...] of this encounter Implants Implanted Type Area Social Services Director Device Shelf Model / Identifier Expiration Serial / Date Lot Bio Eye Implant, Integrated Orbital Impl ants Ioi 18mm Perforated #[id number] - [id number] ORBITAL Left: INTEGRATED 09/18/2018 [id number] / Implanted: Qty: 1 on 01/17/2018 by Latrell Mcknight MD at [facility] Eye ORBITAL IMPLANTS [id number] / [id number] documented as of this encounter Procedures Procedure Name Priority Date/Time Associated Diagnosis Comme nts NOTICE OF PRIVACY Routine 04/02/2020 12:15 AM CDT PRACTICES documented in this encounter Results Not on filedocumented in this encounter Visit Diagnoses Diagnosis Complication of arteriovenous dialysis f istula, initial encounter - Primary Right arm pain Pain in limb documented in this encounter Administered Medications Medication Order MAR Action Action Date Dose Rate Site HYDROcodone-acetaminophen Given 04/02/2020 12:54 AM CDT 1 tablet (NORCO 5) 5-325 mg tablet 1 tablet 1 tablet, Oral, ONCE, 1 dose, 04/02/20 at 0145, BOBBY documented in this encounter Insurance Payer Benefit Plan / Subscriber ID Effective Dates Phone Addre ss Type Group MEDICARE MEDICARE PART [id number] 2014-Presen [phone] [address] Medicare A & B t 2 [id number] RICH EVELETHDHEERAJ [id number] [facility] MEDICAID OF [id number] 2020-Presen [phone] [address] Medicaid [place] t 0 [id number] [place] [address] documented as of this encounter Advance Directives Name Relationship Healthcare Agent Communication Relationship Jennifer Gunderson Mother Health Care Agent L[place] Found Sibling First Alternate Health Care Agent (Mobile)
--- OUTSIDE RECORDS SUMMARY | 2020-06-10 06:55 | XMS REPORT | Summary of Care ---
:1980 Author Organization [facility] Address [address] [place] [address] Care Team Providers Name Role Phone Vivien Morin DO Public Address Servicer Vivien Morin DO Primary Care Provider Reason [...] skin Jose Luis Gonzalez, Procedures CONSULT/REFERRAL PODIATRY [address] [place] [address] Reason for Visit Reason Comments New Evaluation Ref by PCP for DM management , per patient (Routine) Status Reason Specialty Diagnoses / Referred By Referred To Procedures Contact Contact Authorized Endocrinology Diagnoses Type 2 diabetes mellitus with chronic kidney disease on chronic dialysis, without long-term current use of insulin Silverio Valdez Went[place], Diabetes & Procedures CONSULT/REFERRAL ENDOCRINOLOGY Diabetes; Preferred Location: [facility] MD KATY Nuñez Metabolism [address] [place] [address], [phone] [place] [address] Phone: Fax: Encounter Details Date Type Department Care Team Description [facility] 2 diabetes mellitus with complicati on, without long-term current use of insulin (Primary Dx); Endocrinology- [address] [facility] ESRD (en d stage renal disease) on dialysis; 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 07/22/2017 Overview: Added automatically from request for jose reynaldo [id number] Neovascular glaucoma, left eye 07/08/2017 Increased intraocular pressure 07/08/2017 Fall 04/02/2017 Pneumonia 03/31/2017 Diabetes mellitus 03/25/2017 Overview: Added automatically from request for jose reynaldo [id number] Pseudotumor cerebri 03/15/2017 Peripheral neuropathy 01/03/2017 Obesity [...] 10/20/2012 04/29/2015 uncontrolled Overview: ICD10 Diagnosis Term Death Claim Examiner Utility documented as of this encounter (statuses [...] with No / Unsure 05/01/2020 11:02 AM CARBON PAPER COATING MACHINE SETTER someone who was confirmed or suspected to have Coronavirus / COVID-19? documented as of this encounter Last Filed Vital Signs Vital Sign Reading Time Taken Comments Blood Pressure 138/80 05/01/2020 11:20 AM CARBON PAPER COATING MACHINE SETTER Pulse 85 05/01/2020 11:20 AM CARBON PAPER COATING MACHINE SETTER Temperature - - Respiratory Rate - - Oxygen Saturation 99% 05/01/2020 11:20 AM CARBON PAPER COATING MACHINE SETTER Inhaled Oxygen Concentration - - Weight 79.4 kg (175 lb) 05/01/2020 11:20 AM CARBON PAPER COATING MACHINE SETTER Height - - Body Mass Index 33.07 04/25/2020 10:17 AM CARBON PAPER COATING MACHINE SETTER documented in this encounter Patient Instructions Patient InstructionsJose Luis Gonzalez MD - 05/01/2020 10:30 AM CSTContinue to take glipizide 5mg twice a day and Tradjenta 5mg daily However, recommend to skip morning dose of Glipizide on your dialysis day ON PAPER COATING MACHINE SETTER documented in this encounter Progress Notes Jose [...] STD (sexually transmitted disease) HPV Substance abuse [facility]; QUIT IN JUNE 2014 Transfusion history Trauma [...] level: Not on file Occupational History 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 Comment: Computer Classes Social Needs Financial [...] file Gets together: Not on file Attends sabianism service: Not on file Active member of [...] Narrative Denies physical abuse within the home Gnosticist Preference: None Cat in the home (inside; [...] SERUM OR PLASMA; Future - LIPID PANEL (18221)(TOTAL CHOLESTEROL, TRIGLYCERIDES, HDL); Future - GLUCOSE; Future [...] Date Type Specialty Care Team Description 05/07/2020 Quality Assurance Supervisor Body Visit Phlebotomy 2, [facility] Lab 05/10/2020 Nurse Visit Cardiology Oz Olivares MD [address] [facility] [address] [place] [address] [phone] Visit, [facility] Nurse 05/28/2020 Laboratory Only Cardiology Pc, [facility] Echo Room 1 - 06/27/2020 Office Visit Cardiology Oz Olivares MD [address] [facility] [place] [address] [phone] 07/09/2020 Nurse Visit Obstetrics & Gynecology Nurse, [facility] Women' s Health 08/06/2020 Office Visit Endocrinology Diabetes & Tee Gonzalez MD Metabolism [address] [place] [address] [phone] 04/08/2021 Office Visit Obstetrics & Gynecology Gina Bhat MD [address] [place] [address] Dr[address] [place] [address] [phone] Name Type Priority Associated Diagnoses Order S chedule C-PEPTIDE, SERUM OR LAB Routine Type 2 diabetes ben springer Expected: 05/01/2020, PLASMA with complication, Expires: 05/01/2021 without long-term current use of insulin LIPID PANEL LAB Routine Type 2 diabetes mellitus Exp ected: 05/01/2020, (41265)(TOTAL with complication, Expires: 05/01/2021 CHOLESTEROL, without long-term [...] of this encounter Implants Implanted Type Area Lead Military Analyst Device Shelf Model / Identifier Expiration Serial / Date Lot Bio Eye Implant, Integrated Orbital Impl ants Ioi 18mm Perforated #[id number] - [id number] ORBITAL Left: INTEGRATED 09/18/2018 [id number] / Implanted: Qty: 1 on 01/17/2018 by Latrell Mcknight MD at [facility] Eye ORBITAL IMPLANTS [id number] / [id number] documented as of this encounter Procedures Procedure Name Priority Date/Time Associated Comments Diagnosis POCT HEMOGLOBIN A1C Routine 05/01/2020 11:24 AM R esults for this TEST CARBON PAPER COATING MACHINE SETTER procedure are i n the results section. documented in this encounter Results POCT HEMOGLOBIN A1C TEST (05/01/2020 11:24 AM CARBON PAPER COATING MACHINE SETTER) Pathologist Sig nature POCT HBA1C 6.8 (A) [...] Addre ss Type Group MEDICARE MEDICARE PART [id number] 2014-Presen [phone] [address] Medicare A & B t 2 [id number] DHEERAJ GEE [id number] [facility] MEDICAID OF [id number] 2020-Presen [phone] [address] Medicaid [place] t 0 [id number] [place] [address] documented as of this encounter Advance Directives Name Relationship Healthcare Agent Communication Relationship Jennifer Gunderson Mother Health Care Agent [place] Found Sibling First Alternate Health Care Agent (Mobile)
--- OUTSIDE RECORDS SUMMARY | 2020-06-10 06:55 | XMS REPORT | Summary of Care ---
:1980 Author Organization [facility] Address [address] [place] [address] Care Team Providers Name Role Phone Vivien Morin DO Cycle Liaison Vivien Morin DO Primary Care Provider Reason for Visit Reason Comments NURSE VISIT Event monitor (Routine) Status Reason Specialty Diagnoses / Procedures Referred By C ontact Referred To Contact Closed Cardiology Diagnoses ESRD (end stage renal disease) on dialysis Oz Olivares Procedures CARDIO LOOP MONITOR MD Mami [address] [facility] [address] [phone] Phone: Encounter Details Date Type Department Care Team Description 05/10/2020 Nurse Visit [facility] Oz Olivares MD [address] [facility] [address] [phone] ESRD (end stage renal Cardiology- [place] Visit, Adc Nurse disease) on dialysis [address] [facility], [address] [place] [address] Allergies Active Allergy Reactions Severity Noted Date [...] as of this encounter (statuses as of 05/10/2020) Medications Medication Sig Dispensed Refills Start Date [...] times daily with meals. traZODone 100 mg tablet Take 100 mg by 0 02/01/2020 Active mouth before meals and at bedtime. cetirizine Take 1 tablet by 0 Ac tive HCl/pseudoephedrine mouth daily. (ZYRTEC-D ORAL) furosemide 40 mg tablet Take 40 mg by 0 Active mouth 2 (two) times daily. glipiZIDE 5 mg Take 1 tablet by 180 tablet 1 05/01/2020 Active tabletIndications: Type mouth 2 (two) 2 diabetes mellitus times daily with complication, before breakfast without long-term and dinner. 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 Increased intraocular pressure 07/08/2017 Fall 04/02/2017 Pneumonia 03/31/2017 Diabetes mellitus 03/25/2017 Overview: Added automatically from request for jose reynaldo [id number] Pseudotumor cerebri 03/15/2017 Peripheral neuropathy 01/03/2017 Obesity [...] as of this encounter (statuses as of 05/10/2020) Resolved Problems Problem Noted Date Resolved Date Diabetes, type 1.5, uncontrolled, managed as type 2 04/29/20 15 09/17/2015 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 documented as of this encounter Last Filed Vital Signs Not on filedocumented in this encounter Progress Notes Hollie Easton RN - 05/10/2020 8:30 AM CSTPatient informed me during visit that she already completed her heart monitor and took it off this morning. Patient was hooked up during RADHA. R OPERATOR documented in this encounter Plan of Treatment Date Type Specialty Care Team Description 05/28/2020 Laboratory Only Cardiology Pc, [facility] Echo Room 1 - 06/27/2020 Office Visit Cardiology Oz Olivares MD [address] [place] [phone] 07/09/2020 Nurse Visit Obstetrics & Gynecology Nurse, [facility] Women' s Health 08/06/2020 Office Visit Endocrinology Diabetes & GonzalezTee MD [facility] [address] [place] [address] 04/08/2021 Office Visit Obstetrics & Gynecology AdGina robles MD [address] [facility] [address] [place] [phone] Health Maintenance Due Date Last Done Comments VARICELLA VACCINES (1 of 2 10/18/1983 - 2-dose childhood series) PNEUMOCOCCAL 0-64 YEARS 1988 COMBINED SERIES (1 of 3 - PCV13) DTaP,Tdap,and Td Vaccines 2001 (1 - Tdap) LDL-C 07/07/2018 07/07/2017, 06/23/2012, 06/16/2011, Additional history exists EYE EXAM 02/18/2020 02/17/2019, 05/02/2018, 04/06/2018, Additional history exists INFLUENZA VACCINE (#1) 2020 06/22/2017, 04/02/2016, 10/28/2015, Additional history exists HgA1C 10/29/2020 05/01/2020, 07/07/2017, 06/21/2017, Additional history exists Depression Screening 02/05/2021 02/06/2020 CREATININE (SERUM) 05/01/2021 04/24/2019, 02/22/2019, Postp oned from 01/14/2019, Additional 0 (Alternative history exists Guidelines) FOOT EXAM 05/01/2021 05/01/2020, 05/01/2020, 02/06/2020, Additional history exists PAP SMEAR 04/02/2023 04/02/2020, 05/03/2015, 09/02/2010, Additional history exists documented as of this encounter Implants Implanted Type Area Pillow Cleaner Device Shelf Model / Identifier Expiration Serial / Date Lot Bio Eye Implant, Integrated Orbital Impl ants Ioi 18mm Perforated #[id number] - [id number] ORBITAL Left: INTEGRATED 09/18/2018 [id number] / Implanted: Qty: 1 on 01/17/2018 by Latrell Mcknight MD at [facility] Eye ORBITAL IMPLANTS [id number] / [id number] documented as of this encounter Results Not on filedocumented in this encounter Visit Diagnoses Diagnosis ESRD (end stage renal disease) on dialys is End stage renal disease documented in this encounter Insurance Payer Benefit Plan / Subscriber ID Effective Dates Phone Addre ss Type Group MEDICARE MEDICARE PART [id number] 2014-Presen [phone] [address] Medicare A & B t 2 [id number] JAKINDHEERAJ [id number] [facility] MEDICAID OF [id number] 2020-Presen [phone] [address] Medicaid [place] t 0 [id number] [place] [address] documented as of this encounter Advance Directives Name Relationship Healthcare Agent Communication Relationship Jennifer Gunderson Mother Health Care Agent [place] Found Sibling First Alternate Health Care Agent (Mobile)
--- OUTSIDE RECORDS SUMMARY | 2020-06-10 06:56 | XMS REPORT | Summary of Care ---
:1980 Author Organization [facility] Address [address] [place] [address] Care Team Providers Name Role Phone Vivien Morin DO Daytime Caregiver Vivien Morin DO Primary Care Provider Reason for Referral (Routine) Status Reason Specialty Diagnoses / Procedures Referred By C ontact Referred To Contact Closed Cardiology Diagnoses ESRD (end stage renal disease) on dialysis Olivares, Sendil Procedures CARDIO LOOP MONITOR MD Mami [address] [facility] [address] [address] Phone: (Routine) Status Reason Specialty Diagnoses / Referred By Referred To Procedures Contact Contact New Request Cardiology Diagnoses ESRD (end stage renal disease) on dialysis Olivares, Sendil Procedures ECHO ROUTINE W/DOPPLER COLOR Preferred Location: [facility] MD Mami [address] [facility] [address] R JEAN MARIE [address] [place] [phone] Reason for Visit Reason Comments Follow-up Annual Ekg Done today in office Encounter Details Date Type Department Care Team Description 04/25/2020 Office Visit [facility] Olivares, Sendil Palpitations (Primary Dx); Cardiology- [facility] Bolaños MD ESRD (end stage renal disease) on dialys is; [facility] [address] Obesity (BMI 30-39.9); Drive, [address] JEAN MARIE 106 Family history of premature CAD; [place], [place], [place] Nonobstructive atherosclerosis of coronary artery; [phone] Dyslipidemia; [phone] Essential hypertension; [phone] Atypical chest pain (Fax) Allergies Active Allergy Reactions Severity Noted Date [...] as of this encounter (statuses as of 05/18/2020) Medications Medication Sig Dispensed Refills Start End [...] meals. traZODone 100 mg Take 100 mg by 0 Active tablet mouth before 0 meals and at bedtime. cetirizine Take 1 tablet 0 Activ e HCl/pseudoephedrine by mouth (ZYRTEC-D ORAL) daily. furosemide 40 mg Take 40 mg by 0 Active tablet mouth 2 (two) times daily. glipiZIDE 5 mg Take 5 mg by 0 05/01/20 Di scontinued tablet mouth. 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 Increased intraocular pressure 07/08/2017 Fall 04/02/2017 Pneumonia 03/31/2017 Diabetes mellitus 03/25/2017 Overview: Added automatically from request for jose jacobs [id number] Pseudotumor cerebri 03/15/2017 Peripheral neuropathy 01/03/2017 Obesity [...] as of this encounter (statuses as of 05/18/2020) Resolved Problems Problem Noted Date Resolved Date Diabetes, type 1.5, uncontrolled, managed as type 2 04/29/20 15 09/17/2015 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 documented as of this encounter Last Filed Vital Signs Vital Sign Reading Time Taken Comments Blood Pressure 173/108 04/25/2020 10:24 AM PRINT INSPECTOR Pulse 89 04/25/2020 10:17 AM PRINT INSPECTOR Temperature - - Respiratory Rate 19 04/25/2020 10:17 AM PRINT INSPECTOR Oxygen Saturation 100% 04/25/2020 10:17 AM PRINT INSPECTOR Inhaled Oxygen Concentration - - Weight 81 kg (178 lb 8 oz) 04/25/2020 10:17 AM PRINT INSPECTOR Height 154.9 cm (5' 1") 04/25/2020 10:17 AM PRINT INSPECTOR Body Mass Index 33.73 04/25/2020 10:17 AM PRINT INSPECTOR documented in this encounter Progress Notes Oz Olivares MD - 04/25/2020 10:00 AM CST [facility] Consult Note Patient: Cathi Zaldivar Date of : 1980 Primary Care Physician: Partha Abraham Jr CHIEF COMPLAINT: Chief Complaint Patient presents with Follow-up Annual Ekg Done today in office History of Present Illness: Cathi Zaldivar is a 39 year old female presents to the clinic to follow up care for atypical chest pain/palpitations. History from patient. Since last OV, reports having palpitations at random with no specific aggravating or relieving factors. Lasts for few seconds. No associated cardiac symptoms elicited. BABCOCK NYHA Class II stable. Recently her brother was diagnosed to have CAD. No PND or orthopnea. No pedal edema. No exertional palpitations or palpitations at rest. No syncopalattacks. Risks factors: ESRD on dialysis, DM, HTN, dyslipidemia. Outside records reviewed [facility] PET Stress test 12/2016 IMPRESSION: 1. Normal study.2. Appropriate pharmacologic stress.3. Normal myocardial perfusion.4. Normal resting LV function. No deterioration of function is noted with pharmacologic stress.5. Normal extracardiac tracer distribution.6. No previous [facility] study for comparison. Echo 12/2016 Left ventricular [...] personally reviewed, pertinent results as below: ECG 04/25/2020 Normal sinus rhythm Nonspecific T wave changes Echo 07/2017 Interpretation Summary A two-dimensional transthoracic echocardiogram with M-mode and Doppler was performed. The study was technically adequate. There is no comparison study available. - Left ventricular systolic function is normal. LVEF = 50-55%. The left ventricular wall motion is normal. - Diastolic dysfunction. - Moderate LAE - Mild pulmonary hypertension with RVSP at 35-40 mmHg. - Injection of agitated saline contrast documented no interatrial shunt. LEFT CORONARYARTERY: 02/2019 Left Main Artery: angiographically normal. LAD: proximal to mid 30-40% disease, diagonal 1 large normal. Circumflex: mild LI RIGHT CORONARYARTERY: RCA: large dominant, mid 20-30% disease, RPDA/RPL normal LVEDP 13 mmHg. DIAGNOSTIC IMPRESSION: - Mild Non obstructive CAD. PLANS: l - Continue aggressive medical management. l - Findings and Plan of care discussed with patient. 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 CETIRIZINE HCL/PSEUDOEPHEDRINE (ZYRTEC-D ORAL) Take 1 tablet by mouth daily. DIPHENHYDRAMINE 50 MG TABLET Take 1 tablet [...] Take 800 mg by mouth daily. FUROSEMIDE 40 MG TABLET Take 40 mg by mouth 2 (two) times daily. GABAPENTIN 100 MG CAPSULE Take 100 mg by mouth 2 (two) times daily. GLIPIZIDE 5 MG TABLET Take 5 mg by mouth. LINAGLIPTIN (TRADJENTA) 5 MG TABLET Take by mouth. METOPROLOL TARTRATE 50 MG TABLET Take 50 mg by mouth daily. MV-MN/IRON/FOLIC ACID/HERB 190 (VITAMIN D3 COMPLETE ORAL) Take 1 capsule by mouth daily. PRAVASTATIN 40 MG TABLET Take by mouth daily. SERTRALINE 50 MG TABLET Take 50 mg by mouth daily. SPIRONOLACTONE 50 MG TABLET Take 50 mg by mouth daily. TRAZODONE 100 MG TABLET Take 100 mg by mouth before meals and at bedtime. VITAMIN C WITH LILLIANA HIPS (VITAMIN C) 1,000 MG TABLET Take 2,000 mg by mouth 2 (two) times daily. START taking Modified Medications as Prescribed No medications on file STOP taking these medications No medications on file REVIEW OF SYSTEMS: Comprehensive 10-system review was conducted and were negative except for what's noted in the HPI. The following systems were reviewed: Constitutional, cardiovascular, respiratory, gastrointestinal, genitourinary, musculoskeletal, neurologic, psychiatric, endocrinological, and hematological. PHYSICAL EXAMINATION: Vitals: 04/25/20 1017 04/25/20 1024 BP: (!) 183/120 (!) 173/108 BP Location: Left arm Patient Position: Sitting BP CUFF SIZE: Adult Small Pulse: 89 Resp: 19 SpO2: 100% Weight: 178 lb 8 oz (81 kg) Height: 5' 1" (1.549 m) General: no apparent distress HEENT: normocephalic [...] Value 06/23/2012 10.1 WBC (10*3/L) Date Value 04/24/2019 5.45 NA Date Value 04/24/2019 132 mmol/L (L) 06/23/2012 125 MMOL/L (L) No results found for: PT PLT x10^3 (/uL) Date Value 06/23/2012 193 PLT (10*3/L) Date Value 04/24/2019 130 (L) K Date Value 04/24/2019 4.0 mmol/L 06/23/2012 4.7 MMOL/L PT INR (no units) Date Value 04/30/2003 0.9 INR (no units) Date Value 04/24/2019 1.2 HGB Date Value 04/24/2019 9.7 g/dL (L) 06/23/2012 13.0 G/DL BUN Date Value 04/24/2019 38 mg/dL (H) 06/23/2012 14 MG/DL HCT (%) Date Value 04/24/2019 28.6 (L) 06/23/2012 37.1 CREATININE Date Value 04/24/2019 6.58 mg/dL (H) 06/23/2012 0.70 MG/DL LIPID PROFILE GLUCOSE Date Value 04/24/2019 422 mg/dL (H) 06/23/2012 678 MG/DL (AA) CHOL [...] found for: CKMB AST(SGOT) (U/L) Date Value 04/24/2019 27 06/23/2012 17 TROPONIN I (ng/mL) Date Value 04/24/2019 0.009 ALT(SGPT) (U/L) Date Value 02/22/2019 19 06/23/2012 24 ALTv (U/L) Date Value 04/24/2019 14 No results found for: BNP LDL CHOL Date Value 07/07/2017 177 mg/dL (H) 06/23/2012 52 MG/DL There are no current results on file for these tests and/or test for 1 year. There are no current results on file for these tests and/or test for 1 year. Labs from [facility] dialysis reviewed. Done on 09.23.2018 A1c: 5.5 Hb 11 K 4.7 LDL 54 TG 165 HDL 33 ASSESSMENT/PLAN 1. Palpitations 2. ESRD (end stage renal disease) on dialysis EKG-12 LEAD ROUTINE ECHO ROUTINE W/DOPPLER COLOR Preferred Location: [place] [facility] CARDIO LOOP MONITOR 3. Obesity (BMI 30-39.9) 4. Family history of premature CAD 5. Nonobstructive atherosclerosis of coronary artery 6. Dyslipidemia 7. Essential hypertension 8. Atypical chest pain Palpitations/Atypical chest pain: EKG done today was reviewed no significant changes noted. Recommended 30-day event monitor for further assessment for symptoms and rhythm correlation. Since she has been having palpitations at random once or twice per week. In view of symptoms of palpitations, recommended echo to assess for structural abnormalities in terms of regional wall abnormalities, VHD, diastolic dysfunction and RV function. Atypical chest pain history: Nonobstructive CAD by cath Recommended to follow up with PCP regarding noncardiac work up for chest pain. Explained that CAD < 50 % does not explain her chest pain symptoms. If no contraindications from nephrology stand point, recommend low ASA 81 mg daily. HTN: Elevated in the office. Follows Dr Dean nephrology. Goal BP << 130/80 reviewed. Continue Lasix 40 BiD, Toprol XL 50 mg daily, Doxazosin 4 mg BiD, Aldactone 50 mg daily. Dyslipidemia: at goal on pravastatin. Recommend goal LDL < 70. T2DM: follows PCP Follow up in 2 months. Explained that from cardiac stand point, she may proceed with renal Tx under moderate risk category. Recommended goal BP < 130/80 consistently, LDL << 70, HbA1c < 6.5. Orders Placed This Encounter Procedures ECHO ROUTINE W/DOPPLER COLOR Preferred Location: [place] [facility] Requested Prescriptions No prescriptions requested or ordered in this encounter Patient's diease process and its evaluation and treatment were discussed. We discussed each of for cardio vascular-related problems and discussed long-term goals and expectations for the each problem.I reviewed each of the cardiac medications in detail. Reviewed the medication with patient in detail recommended to continue taking the current medications without further changes Recommended, explained and stressed the importance of [...] and verbzalised statisfcation in the answers given. Thank you for allowing us to participate in the care of Cathi Zaldivar. If you have any questions or concerns please feel free to call our office at [phone]. I would be happy to be of further assistance for Cathi Dumont Found wellbeing. Jono Olivares MD Safety Representative, Division of Cardiology [facility] documented in this encounter Plan of Treatment Date Type Specialty Care Team Description 05/28/2020 Laboratory Only Cardiology Pc, [facility] Echo Room 1 - 06/27/2020 Office Visit Cardiology Oz Olivares MD [address] [facility] [address] [place] [phone] 07/09/2020 Nurse Visit Obstetrics & Gynecology Nurse, [facility] Women' s Health 08/06/2020 Office Visit Endocrinology Diabetes & Gonzalez, Tee hager MD [facility] [address] [place], [place] [phone] 04/08/2021 Office Visit Obstetrics & Gynecology Gina Bhat MD [facility] [address] [place] [address] Name Type Priority Associated Diagnoses Order S chedule CARDIO LOOP MONITOR HEART STATION Routine ESRD (end stage douglas l 1 Occurrences starting disease) on dialysis 020 until 04/26/2021 Health Maintenance Due Date Last Done Comments [...] of this encounter Implants Implanted Type Area Slip Box Changer Device Shelf Model / Identifier Expiration Serial / Date Lot Bio Eye Implant, Integrated Orbital Impl ants Ioi 18mm Perforated #[id number] - [id number] ORBITAL Left: INTEGRATED 09/18/2018 [id number] / Implanted: Qty: 1 on 01/17/2018 by Latrell Mcknight MD at [facility] Eye ORBITAL IMPLANTS [id number] / [id number] documented as of this encounter Procedures Procedure Name Priority Date/Time Associated Diagnosis Comme nts CT ELECTROCARDIOGRAM, Routine 04/25/2020 10:19 AM ESRD (end st age renal COMPLETE PRINT INSPECTOR disease) on dialysis documented in this encounter Results Not on filedocumented in this encounter Visit Diagnoses Diagnosis Palpitations - Primary ESRD (end stage renal disease) on dialys is End stage renal disease Obesity (BMI 30-39.9) Obesity, unspecified Family history of premature CAD Family history of ischemic heart disease Nonobstructive atherosclerosis of morales ry artery Dyslipidemia Other and unspecified hyperlipidemia Essential hypertension Unspecified essential hypertension Atypical chest pain Other chest pain documented in this encounter Insurance Payer Benefit Plan / Subscriber ID Effective Dates Phone Addre ss Type Group MEDICARE MEDICARE PART [id number] 2014-Presen [phone] [address] Medicare A & B t 2 [id number] DHEERAJ GEE [id number] [facility] MEDICAID OF [id number] 2020-Presen [phone] [address] [place] t 0 [id number] [place] [address] documented as of this encounter Advance Directives Name Relationship Healthcare Agent Communication Relationship Jennifer Gunderson Mother Health Care Agent [place] Found Sibling First Alternate Health Care [phone] Agent (Mobile)
--- OUTSIDE RECORDS SUMMARY | 2020-06-10 06:56 | XMS REPORT | Summary of Care ---
:1980 Author Organization [facility] Address [address] [place] [address] Care Team Providers Name Role Phone Vivien Morin DO Special Education Director Vivien Morin DO Primary Care Provider Reason for Referral (Routine) Status Reason Specialty Diagnoses / Procedures Referred By C ontact Referred To Contact Closed Cardiology Diagnoses ESRD (end stage renal disease) on dialysis Olivares, Sendil Procedures CARDIO LOOP MONITOR MD Mami [address] [facility] [address] [address] Phone: (Routine) Status Reason Specialty Diagnoses / Referred By Referred To Procedures Contact Contact New Request Cardiology Diagnoses ESRD (end stage renal disease) on dialysis Olivares, Sendil Procedures ECHO ROUTINE W/DOPPLER COLOR Preferred Location: [facility] MD Mami [address] [facility] [address] R JEAN MARIE [address] [place] [phone] Reason for Visit Reason Comments Follow-up Annual Ekg Done today in office Encounter Details Date Type Department Care Team Description 04/25/2020 Office Visit [facility] Olivares, Sendil Palpitations (Primary Dx); Cardiology- [facility] Bolaños MD ESRD (end stage renal disease) on dialys is; [facility] 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 documented as of this encounter Last Filed Vital Signs Vital Sign Reading Time Taken Comments Blood Pressure 173/108 04/25/2020 10:24 AM DROP FORGE OPERATOR Pulse 89 04/25/2020 10:17 AM DROP FORGE OPERATOR Temperature - - Respiratory Rate 19 04/25/2020 10:17 AM DROP FORGE OPERATOR Oxygen Saturation 100% 04/25/2020 10:17 AM DROP FORGE OPERATOR Inhaled Oxygen Concentration - - Weight 81 kg (178 lb 8 oz) 04/25/2020 10:17 AM DROP FORGE OPERATOR Height 154.9 cm (5' 1") 04/25/2020 10:17 AM DROP FORGE OPERATOR Body Mass Index 33.73 04/25/2020 10:17 AM DROP FORGE OPERATOR documented in this encounter Progress Notes Oz Olivares MD - 04/25/2020 10:00 AM CST [facility] Cardiology Consult Note Patient: Cathi Zaldivar Date [...] dialysis, DM, HTN, dyslipidemia. Outside records reviewed [facility] PET Stress test 12/2016 IMPRESSION: 1. Normal study.2. Appropriate pharmacologic stress.3. Normal myocardial perfusion.4. Normal resting LV function. No deterioration of function is noted with pharmacologic stress.5. Normal extracardiac tracer distribution.6. No previous [facility] study for comparison. 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 Labs from [facility] dialysis reviewed. Done on 09.23.2018 A1c: 5.5 Hb 11 K 4.7 LDL 54 TG 165 HDL 33 ASSESSMENT/PLAN 1. Palpitations 2. ESRD (end stage renal disease) on dialysis EKG-12 LEAD ROUTINE ECHO ROUTINE W/DOPPLER COLOR Preferred Location: [place] [facility] CARDIO LOOP MONITOR 3. Obesity (BMI [...] Procedures ECHO ROUTINE W/DOPPLER COLOR Preferred Location: [place] [facility] Requested Prescriptions No prescriptions requested or [...] feel free to call our office at [phone]. I would be happy to be of further assistance for Cathi Dumont Found wellbeing. Jono Olivares MD Produce Team Member, Division of Cardiology [facility] documented in this encounter Plan of Treatment Date Type Specialty Care Team Description 05/28/2020 Laboratory Only Cardiology Pc, [facility] Echo Room 1 - 06/27/2020 Office Visit Cardiology Oz Olivares MD [address] [facility] [address] [place] [phone] 07/09/2020 Nurse Visit Obstetrics & Gynecology Nurse, [facility] Women' s Health 08/06/2020 Office Visit Endocrinology Diabetes & Gonzalez, Tee hager MD [facility] [address] [place], [place] [phone] 04/08/2021 Office Visit Obstetrics & Gynecology Gina Bhat MD [facility] [address] [place] [address] Name Type Priority Associated Diagnoses [...] of this encounter Implants Implanted Type Area Travel Pt Device Shelf Model / Identifier Expiration Serial / Date Lot Bio Eye Implant, Integrated Orbital Impl ants Ioi 18mm Perforated #[id number] - [id number] ORBITAL Left: INTEGRATED 09/18/2018 [id number] / Implanted: Qty: 1 on 01/17/2018 by Latrell Mcknight MD at [facility] Eye ORBITAL IMPLANTS [id number] documented as of this encounter Procedures Procedure Name Priority Date/Time Associated Diagnosis Comme nts [place] ELECTROCARDIOGRAM, Routine 04/25/2020 10:19 AM ESRD (end st age renal COMPLETE DROP FORGE OPERATOR disease) on dialysis documented in this encounter [...] Addre ss Type Group MEDICARE MEDICARE PART [id number] 2014-Presen [phone] [address] Medicare A & B t 2 [id number] DHEERAJ GEE [phone] [facility] MEDICAID OF [id number] 2020-Presen [phone] [address] Medicaid [place] t 0 [id number] [place] [address] documented as of this encounter Advance Directives Name Relationship Healthcare Agent Communication Relationship Jennifer Gunderson Mother Health Care Agent [place] Found Sibling First Alternate Health Care Agent (Mobile)
--- OUTSIDE RECORDS SUMMARY | 2020-06-10 06:57 | XMS REPORT | Summary of Care ---
:1980 Author Organization [facility] Address [address] [place] [id number] Care Team Providers Name Role Phone Vivien Morin DO Yarn Sorter Vivien Morin DO Primary Care Provider Reason for Visit (Routine) Status Reason Specialty Diagnoses / Procedures Referred By C ontact Referred To Contact Closed Cardiology Diagnoses ESRD (end stage renal disease) on dialysis Oz Olivares Procedures ECHO ROUTINE W/DOPPLER COLOR Preferred Location: [place] [facility] MD Mami [address] [address] Phone: Encounter Details Date Type Department Care Team Description 05/28/2020 Laboratory Only [facility] Oz Olivares MD [address] [address] ESRD (end stage renal Cardiology- [facility] Echo Room 1 - disease) on dialysis [address] [place] [address] Allergies Active Allergy Reactions Severity [...] as of this encounter (statuses as of 05/28/2020) Medications Medication Sig Dispensed Refills Start Date [...] as of this encounter (statuses as of 05/28/2020) Active Problems Problem Noted Date Malfunction of arteriovenous dialysis fistula, initial encounter 11/21/2018 Overview: Added automatically from request for jose reynaldo [id number] Candidiasis of vulva and vagina 08/08/2018 Screening for breast cancer 08/08/2018 Pyogenic granuloma of conjunctiva, right 04/06/2018 Overview: Added automatically from request for jose reynaldo [id number] 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 07/22/2017 Overview: Added automatically from request for jose reynaldo [id number] Neovascular glaucoma, left eye 07/08/2017 Increased intraocular pressure 07/08/2017 Fall 04/02/2017 Pneumonia 03/31/2017 Diabetes mellitus 03/25/2017 Overview: Added automatically from request for jose reynaldo [id number] Pseudotumor cerebri 03/15/2017 Peripheral neuropathy 01/03/2017 Obesity [...] as of this encounter (statuses as of 05/28/2020) Resolved Problems Problem Noted Date Resolved Date Diabetes, type 1.5, uncontrolled, managed as type 2 04/29/20 15 09/17/2015 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 documented as of this encounter Last Filed Vital Signs Vital Sign Reading Time Taken Comments Blood Pressure 188/101 05/28/2020 8:48 AM phy notified of PRUNE WASHER elevated BP Pulse 74 05/28/2020 8:48 AM PRUNE WASHER Temperature - - Respiratory Rate - - Oxygen Saturation - - Inhaled Oxygen - - Concentration Weight 80.7 kg (178 lb) 05/28/2020 8:48 AM PRUNE WASHER Height 154.9 cm (5' 1") 05/28/2020 8:48 AM PRUNE WASHER Body Mass Index 33.63 05/28/2020 8:48 AM PRUNE WASHER documented in this encounter Plan of Treatment Date Type Specialty Care Team Description 06/27/2020 Office Visit Cardiology Oz Olivares MD [address] [place] [id number] 07/09/2020 Nurse Visit Obstetrics & Gynecology Nurse, [facility] 08/06/2020 Office Visit Endocrinology Diabetes & Tee Gonzalez MD Metabolism [address] [place], [place] [address] 04/08/2021 Office Visit Obstetrics & Gynecology Gina Bhat MD [address] [place] [address] Health Maintenance Due Date Last [...] of this encounter Implants Implanted Type Area Equity Research Associate Device Shelf Model / Identifier Expiration Serial / Date Lot Bio Eye Implant, Integrated Orbital Impl ants Ioi 18mm Perforated #[id number] - [id number] ORBITAL Left: INTEGRATED 09/18/2018 [id number] / Implanted: Qty: 1 on 01/17/2018 by Latrell Mcknight MD at [facility] Eye ORBITAL IMPLANTS [id number] / [id number] documented as of this encounter Results Not on filedocumented in this encounter Visit Diagnoses Diagnosis ESRD (end stage renal disease) on dialys is End stage renal disease documented in this encounter Insurance Payer Benefit Plan / Subscriber ID Effective Dates Phone Addre ss Type Group MEDICARE MEDICARE PART [id number] 2014-Presen [phone] Medicare A & [address] t [id number] [place] [address] [facility] MEDICAID OF [id number] 2020-Presen [phone] [address] Medicaid [place] t 0 [id number] [place] [address] documented as of this encounter Advance Directives Name Relationship Healthcare Agent Communication Relationship Jennifer Gunderson Mother Health Care Agent [place] Found Sibling First Alternate Health Care Agent (Mobile)
--- NOTE | 2020-06-10 09:00 | EDPHYS ---
Physician Documentation [facility] Name: Cathi Zaldivar Age: 39 yrs Sex: Female : 1980 Arrival Date: 06/10/2020 Time: 06:34 Bed 13 Private MD: ED Physician Dinesh Stallworth HPI: 06/10 08:15 This 39 yrs old Female presents to ER via Ambulatory with complaints of Flu rn Symptoms. 08:15 The patient or guardian reports cough, flu symptoms, low-grade fever, myalgias. Onset: rn The symptoms/episode began/occurred 2 day(s) ago. Severity of symptoms: At their worst the symptoms were mild, in the emergency department the symptoms are unchanged. Modifying factors: The symptoms are alleviated by nothing, the symptoms are aggravated by nothing. The patient has not experienced similar symptoms in the past. The patient has been recently seen by a physician:. Reports sent by dialysis for COVID test, told can't have dialysis until neg COVID test, reports 2 days of headache/muscle aches/low grade fever/cough/congestion/diarrhea. No known covid exposure. No SOB. No abd pain.. SOAP MAKER: 06:57 LMP N/A - Depo-provera lp1 Historical: - Allergies: 06:57 ambien; lp1 06:57 Codeine; lp1 06:57 Demerol; lp1 06:57 GUAIFENESIN; lp1 06:57 Lisinopril; lp1 06:57 Nitrofurantoin Macrocrystal; lp1 06:57 PENICILLINS; lp1 06:57 Prolixin; lp1 06:57 zolpidem tartrate; lp1 - Home Meds: 06:57 amlodipine 10 mg tab 1 tab once daily [Active]; divalproex 500 mg Oral tab once daily lp1 [Active]; doxazosin 4 mg Oral tab [Active]; gabapentin 100 mg Oral cap as needed [Active]; hydralazine 50 mg Oral tab [Active]; Lantus 100 unit/mL Sub-Q soln as needed [Active]; metoprolol tartrate 25 mg Oral tab 1 tab 2 times per day [Active]; Novolog 100 unit/mL Sub-Q soln [Active]; pravastatin Oral [Active]; sertraline 50 mg Oral tab [Active]; tramadol 50 mg Oral tab 1 tab PRN [Active]; Vitamin D3 5,000 unit Oral tab daily [Active]; Zofran (as hydrochloride) 4 mg Oral tab as needed [Active]; - PMHx: 06:57 chronic kidney disease; cyclic vomiting syndrome; Diabetes - NIDDM; ENCEPHALOPATHY; lp1 Gastroparesis; HD-TTHSat; liver failure; PERIPHERAL NEUROPATHY; - PSHx: 06:57 Prosthetic eye; Tubal ligation; lp1 - Immunization history:: Adult Immunizations up to date. - Social history:: Smoking status: Patient reports the use of cigarette tobacco products, denies chronic smoking, but will smoke occasionally. - Family history:: not pertinent. - Hospitalizations: : No recent hospitalization is reported. ROS: 08:15 Constitutional: Negative for weight loss, Eyes: Negative for injury, pain, redness, and medical technologist prn, ENT: + congestion and runny nose Neck: Negative for injury, pain, and swelling, Cardiovascular: Negative for chest pain, palpitations, and edema, Respiratory: Negative for shortness of breath, wheezing, and pleuritic chest pain, Abdomen/GI: Negative for abdominal pain, nausea, vomiting, and constipation, MS/Extremity: Negative for injury and deformity, Skin: Negative for injury, rash, and discoloration, Neuro: Negative for numbness, tingling, and seizure. Exam: 08:15 Constitutional: This is a well developed, well nourished patient who is awake, alert, rn and in no acute distress. Head/Face: Normocephalic, atraumatic. Eyes: Periorbital areas with no swelling, redness, or edema. ENT: No stridor Cardiovascular: Regular rate and rhythm. No pulse deficits. Respiratory: No increased work of breathing, no retractions or nasal flaring. Abdomen/GI: soft, non-tender Skin: Warm, dry MS/ Extremity: Pulses equal, no cyanosis. Neurovascular intact. Full, normal range of motion. Equal circumference. Neuro: Awake and alert, GCS 15 Vital Signs: 06:47 BP 179 / 101; Pulse 84; Resp 18; Temp 98.2(O); Pulse Ox 100% on R/A; Weight 77.7 kg lp1 (R); Height 5 ft. 1 in. (154.94 cm); 08:30 BP 206 / 86; Pulse 83; Resp 16; Pulse Ox 100% on R/A; zb 06:47 Body Mass Index 32.37 (77.70 kg, 154.94 cm) lp1 MDM: 07:04 Patient medically screened. rn 08:57 Differential Diagnosis: Bronchitis Influenza Upper Respiratory Infection Viral Syndrome rn Pneumonia. Data reviewed: vital signs, nurses notes, lab test result(s), radiologic studies, plain films, and as a result, I will discharge patient. Test interpretation: by ED physician or midlevel provider: plain radiologic studies, CXR neg for acute infiltrate. Counseling: I had a detailed discussion with the patient and/or guardian regarding: the historical points, exam findings, and any diagnostic results supporting the discharge/admit diagnosis, lab results, radiology results, the need for outpatient follow up, to return to the emergency department if symptoms worsen or persist or if there are any questions or concerns that arise at home. Special discussion: I discussed with the patient/guardian in detail that at this point there is no indication for admission to the hospital. It is understood, however, that if the symptoms persist or worsen the patient needs to return immediately for re-evaluation. ED course: No oxygen requirement, CXR without pneumonia, flu neg, COVID sent, will dc home until results. . 06/10 06:58 Order name: Influenza Screen (a \T\ B) [facility] 06/10 06:58 Order name: COVID-19 [facility] 06/10 06:58 Order name: Chest Single View XRAY [facility] Administered Medications: No medications were administered Disposition: 06/10/20 08:59 Discharged to Home. Impression: Acute upper respiratory infection, unspecified, End stage renal disease. - Condition is Stable. - Discharge Instructions: Viral Respiratory Infection. - Medication Reconciliation Form, Thank You Letter, Antibiotic Education, Prescription Opioid Use form. - Follow up: Private Physician; When: As needed; Reason: Recheck today's complaints, Re-evaluation by your physician. - Problem is new. - Symptoms have improved. Signatures: Dispatcher [employer] EDMS Dinesh Stallworth MD MD rn Pena, Laura, RN RN lp1 Сергей Li MD MD 7 Marianna Schmidt RN RN zb Corrections: (The following items were deleted from the chart) 07:11 06:59 BASIC METABOLIC PANEL+C.LAB.BRZ ordered. EDMS EDMS 07:11 06:59 CBC+H.LAB.BRZ ordered. EDMS EDMS 07:11 06:59 HEPATIC FUNCTION+C.LAB.BRZ ordered. EDMS EDMS 07:11 06:59 LIPASE+C.LAB.BRZ ordered. EDCT EDMS 09:13 08:59 06/10/2020 08:59 Discharged to Home. Impression: Acute upper respiratory zb infection, unspecified; End stage renal disease. Condition is Stable. Forms are Medication Reconciliation Form, Thank You Letter, Antibiotic Education, Prescription Opioid Use. Follow up: Private Physician; When: As needed; Reason: Recheck today's complaints, Re-evaluation by your physician. Problem is new. Symptoms have improved. rn
--- NOTE | 2020-06-10 09:00 | ER ---
Nurse's Notes [facility] Name: Cathi Zaldivar Age: 39 yrs Sex: Female : 1980 Arrival Date: 06/10/2020 Time: 06:34 Bed 13 Private MD: Diagnosis: Acute upper respiratory infection, unspecified;End stage renal disease Presentation: 06/10 06:47 Chief complaint: Patient states: Reports cough, N/V/D, runny nose x 2 days; Dialysis lp1 clinic recommended having COVID test done; Patient denies fever. Coronavirus screen: Client denies travel out of the [place] in the last 14 days. cough unrelated to allergies, diarrhea, runny nose, vomiting. Ebola Screen: No symptoms or risks identified at this time. Initial Sepsis Screen: Does the patient meet any 2 criteria? No. Patient's initial sepsis screen is negative. Does the patient have a suspected source of infection? No. Patient's initial sepsis screen is negative. Risk Assessment: Do you want to hurt yourself or someone else? Patient reports no desire to harm self or others. Onset of symptoms was June 08, 2020. 06:47 Method Of Arrival: Ambulatory lp1 06:47 Acuity: JESSICA 3 lp1 Triage Assessment: 06:57 General: Appears in no apparent distress. Behavior is calm, cooperative, appropriate lp1 for age. EENT: Reports nasal discharge. Neuro: Level of Consciousness is awake, alert, obeys commands. Respiratory: Reports cough that is non-productive, Respiratory effort is even, unlabored. Derm: Skin is intact, Skin is dry, Skin is normal. Musculoskeletal: No deficits noted. 09:13 Pain: Denies pain. zb CREELER: 06:57 LMP N/A - Depo-provera lp1 Historical: - Allergies: 06:57 ambien; lp1 06:57 Codeine; lp1 06:57 Demerol; lp1 06:57 GUAIFENESIN; lp1 06:57 Lisinopril; lp1 06:57 Nitrofurantoin Macrocrystal; lp1 06:57 PENICILLINS; lp1 06:57 Prolixin; lp1 06:57 zolpidem tartrate; lp1 - Home Meds: 06:57 amlodipine 10 mg tab 1 tab once daily [Active]; divalproex 500 mg Oral tab once daily lp1 [Active]; doxazosin 4 mg Oral tab [Active]; gabapentin 100 mg Oral cap as needed [Active]; hydralazine 50 mg Oral tab [Active]; Lantus 100 unit/mL Sub-Q soln as needed [Active]; metoprolol tartrate 25 mg Oral tab 1 tab 2 times per day [Active]; Novolog 100 unit/mL Sub-Q soln [Active]; pravastatin Oral [Active]; sertraline 50 mg Oral tab [Active]; tramadol 50 mg Oral tab 1 tab PRN [Active]; Vitamin D3 5,000 unit Oral tab daily [Active]; Zofran (as hydrochloride) 4 mg Oral tab as needed [Active]; - PMHx: 06:57 chronic kidney disease; cyclic vomiting syndrome; Diabetes - NIDDM; ENCEPHALOPATHY; lp1 Gastroparesis; HD-TTHSat; liver failure; PERIPHERAL NEUROPATHY; - PSHx: 06:57 Prosthetic eye; Tubal ligation; lp1 - Immunization history:: Adult Immunizations up to date. - Social history:: Smoking status: Patient reports the use of cigarette tobacco products, denies chronic smoking, but will smoke occasionally. - Family history:: not pertinent. - Hospitalizations: : No recent hospitalization is reported. Screenin:57 Abuse screen: Denies threats or abuse. Denies injuries from another. Nutritional lp1 screening: No deficits noted. Tuberculosis screening: No symptoms or risk factors identified. Fall Risk None identified. Assessment: 07:25 General: Appears in no apparent distress. uncomfortable, Behavior is calm, cooperative, zb appropriate for age. Neuro: Level of Consciousness is awake, alert, obeys commands, Oriented to person, place, time, situation. Cardiovascular: Reports fatigue, nausea, shortness of breath, Heart tones S1 S2 Capillary refill < 3 seconds in bilateral fingers Pulses are all present. Respiratory: Reports shortness of breath at rest Airway is patent Respiratory effort is even, unlabored, Respiratory pattern is regular, symmetrical. GI: Abdomen is round non-distended, Last BM was June 10, 2020. Reports diarrhea, nausea, vomiting. : No signs and/or symptoms were reported regarding the genitourinary system. EENT: No signs and/or symptoms were reported regarding the EENT system. Derm: No signs and/or symptoms reported regarding the dermatologic system. Skin is intact, is healthy with good turgor, Skin is pink, warm \T\ dry. normal. Musculoskeletal: Circulation, motion, and sensation intact. Capillary refill < 3 seconds, in bilateral fingers. Range of motion: intact in all extremities. 08:25 Reassessment: Patient appears in no apparent distress at this time. Patient and/or zb family updated on plan of care and expected duration. Pain level reassessed. Patient is alert, oriented x 3, equal unlabored respirations, skin warm/dry/pink. lights dimmed, pt lying in bed speaking to fiance at the moment. 09:03 Reassessment: Patient appears in no apparent distress at this time. Patient and/or zb family updated on plan of care and expected duration. Pain level reassessed. Patient is alert, oriented x 3, equal unlabored respirations, skin warm/dry/pink. notified provider of pt blood pressure 209/86. Vital Signs: 06:47 BP 179 / 101; Pulse 84; Resp 18; Temp 98.2(O); Pulse Ox 100% on R/A; Weight 77.7 kg lp1 (R); Height 5 ft. 1 in. (154.94 cm); 08:30 BP 206 / 86; Pulse 83; Resp 16; Pulse Ox 100% on R/A; zb 06:47 Body Mass Index 32.37 (77.70 kg, 154.94 cm) lp1 ED Course: 06:34 Patient arrived in ED. am2 06:36 Hollie Tomas RN is Primary Nurse. lp1 06:45 Сергей Li MD is Attending Physician. 7 06:49 Triage completed. lp1 06:49 Arm band placed on. lp1 06:58 Patient has correct armband on for positive identification. lp1 07:04 Attending Physician role handed off by Сергей Li MD rn 07:04 Dinesh Stallworth MD is Attending Physician. rn 07:23 Primary Nurse role handed off by Hollie Tomas RN eb 07:25 Marianna Schmidt, ANNA is Primary Nurse. zb 09:09 Chest Single View XRAY In Process Unspecified. EDMS 09:12 No provider procedures requiring assistance completed. Patient did not have IV access zb during this emergency room visit. Administered Medications: No medications were administered Outcome: 08:59 Discharge ordered by . anna 09:13 Discharged to home ambulatory. lorie 09:13 Condition: stable 09:13 Discharge instructions given to patient, Instructed on discharge instructions, follow up and referral plans. Demonstrated understanding of instructions, follow-up care. 09:13 Patient left the ED. lorie Addendum: 06/11/2020 17:24 Addendum: COVID-19 Result: Negative result given to RN to notify pt. Unable to leave s v voice mail due to the number provided was either not a working number, the voice mail has not been set up, or the voice mailbox is full.. Signatures: Dispatcher [employer] Janie Davis, RN Dinesh Chaparro MD MD rn Pena, Laura, RN RN lp1 Radha Moscoso Elizabeth eb Holmes, Maurice, MD MD 7 Marianna Schmidt RN RN zb
--- NOTE | 2020-06-10 09:16 | RAD REPORT ---
EXAM DESCRIPTION: Nisha Single View06/10/2020 9:03 am CLINICAL HISTORY: Cough COMPARISON: 2019 FINDINGS: The lungs appear clear of acute infiltrate. The heart is normal size IMPRESSION: No acute abnormalities displayed
[2020-06-11 19:34] VITALS: TEMP 98.2; O2SAT 100
[2020-06-11 19:35] VITALS: BP 206/86
== END 2020-06-10 09:13 | disposition home or self-care (01) ==
LOC: ER 06:32
DX: J06.9 Acute upper respiratory infection, unspecified (principal); Z20.828 Contact with and (suspected) exposure to other viral communicable diseases; E11.22 Type 2 diabetes mellitus with diabetic chronic kidney disease; N18.6 End stage renal disease; E11.42 Type 2 diabetes mellitus with diabetic polyneuropathy; Z99.2 Dependence on renal dialysis; Z79.4 Long term (current) use of insulin; Z72.0 Tobacco use; Z88.0 Allergy status to penicillin; Z88.5 Allergy status to narcotic agent; Z88.8 Allergy status to other drugs, medicaments and biological substances
CPT/HCPCS: 87804 ×2; 71045; 99283; U0002

== ENCOUNTER 2020-06-13 13:49 | Emergency (ER) | payer OTHER ==
--- OUTSIDE RECORDS SUMMARY | 2020-06-13 13:52 | XMS REPORT | Clinical Summary ---
:1980 Author Organization [facility] Address [address] [place] [address] Care Team Providers Name Role Phone Sharpvolodymyr [...] Not on file Results Not on fileafter 06/13/2019 Advance Directives For more information, please contact: [phone] Code Status Date Activated Date Inactivated Comments Full Code 01/03/2017 1:56 AM 01/07/2017 5:21 PM This code status was determined by: Patient
--- OUTSIDE RECORDS SUMMARY | 2020-06-13 13:59 | XMS REPORT | Continuity of Care Document ---
:1980 Author Organization [employer] Care Team Providers Name Role Phone [employer] Unavailable Un available Problems Problem Status Onset Classification Date Comments Sourc e Date Reported NEW EVALUATION [place]19 [place] [facility] CONGESTION AMD Active 07/23/19 [facility] [place] DIARRHEA 17 [facility] ACUTE RESP Active 07/23/19 [facility] FAILURE [address] [place] [address] SOB/SWELLING Active 06/10/[address] CHF/RENAL DISEASE Active 06/10/[address] Center Discharge 06/26/19 06/28/2014 [facility] Diagnosis: 15 [facility] ABDOMINAL PAIN, Active 06/26/19 [facility] [place] SEIZURES 14 [facility] ABD PAIN Active 04/14/[address] GASTROPERISIS Active 08/02/19 Baljinder as [address] [place] [address] Center ABDOMINAL PAIN Active 03/14/[address] NAUSEA, VOMITING Active 03/14/[address] Nausea and Resolved 11/29/19 Problem 08/02/2016 [facility] vomiting [address] [place] [address] (disorder) [facility] VOMITTING Active 11/28/[address] N/V INABILITY TO Active 11/28/19 [facility] TOLERATE PO [address] [place] [address] Center VOMITTING, HIGH Active 09/18/19 [facility] [place] BLOOD SUGAR [address] [place] [address] MRSA Active 09/01/19 Problem 03/16/2012 - [facility] [place] 12 2Problem added by Jodie scerlisa Expert. [facility] Methicillin Active 09/01/19 Problem 08/02/2016 09/01/11 - [facility] [place] resistant 12 Problem added by Bertin cern Expert. Medical Staphylococcus Samye r, aureus (organism) [facility] Active 08/31/19 [facility] ABSCESS/HYPERGLYC 12 [facility], BLOOD Active 08/31/19 [facility] [place] SUGAR READINGS 12 [facility] Center Hypokalemia Active 08/23/19 Problem 03/16/2012 [facility] [place] [facility] Hypokalemia Resolved 08/23/19 [place] 08/02/[place] [facility] [facility] Disorder of Resolved 08/23/19 Problem 08/02/2016 Amisha lombardo magnesium Medical metabolism Center (disorder) Hyperglycemia Inactive 08/20/19 Problem 03/16/2012 [place] [facility] Hyperglycemia Resolved 08/20/19 Problem 08/02/2016 [place] ([place] [facility] DKA (diabetic Resolved 08/19/19 Problem 04/22/2013 [place] ketoacidoses[place] [facility] Ketoacidosis in Resolved 08/19/19 Problem 08/02/2016 [facility] diabetes mellitus [facility] dical (disorder) Center VOMITING Active 08/19/[address] DKA Active 08/19/[address] Hypoglycemia Inactive Problem 04/22/2013 (disorder) [facility] Hypomagnesemia Active Problem 04/22/2013 [facility] Hypertension Active Problem 03/16/[address] [facility] as Medical Center[facility] Hypoglycemia Inactive Problem 03/16/2012 [facility] Nausea and Active Problem 03/16/2012 [facility] vomiting [facility] Diabetes mellitus Resolved Problem 08/02/2016 [facility] [place] (disorder) [facility] Gastroparesis Resolved Problem 08/02/2016 [facility] [place] (disorder) [facility] Hypertensive Resolved Problem 08/02/2016 Baljinder as disorder, Medical systemic arterial Ce nter, (disorder) [facility] Psychiatric Resolved Problem 08/02/2016 [facility] (finding) Seizure (finding) Resolved Problem 08/02/2016 [facility] [place] Final: Acute 08/02/2016 Baljinder as respiratory Medical failure, Center unspecified whether with hypoxia or hypercapnia DMI KETOACD Active [facility] UNCONTROLD [facility] OTHER GENERAL Active Baljinder as [facility] HEART FAILURE, [place] [facility] ACUTE RESPIRATORY Active [facility] FAILURE, UNSP [facility] HYPOXI Center Medications Medication Details Route Status Patient Ordering Order Source Instructions Provider Date Furosemide 40 MG 40 mg = 1 [place]30/ [place] Oral Tablet tab, PO, 2017 Medical Daily, # 30 Center tab, 0 Refill(s), Pharmacy: [facility] [id number] Bumex 0.5 mg, No Longer [place] Route: PO, Active 2016 Medical Drug form: Center TAB, Daily, Dosing Weight 92.273, kg, Start date: 07/30/16 9:00:00 REGULATORY LEADER, Duration: 30 day, Stop date: 08/28/16 9:00:00 REGULATORY LEADER Lasix Notes: (Same No Longer [place] as: Lasix) Active 2017 Medical May cause [...] Total Volume: 1,000, Start date: 07/26/16 12:26:00 REGULATORY LEADER, Duration: 30 day, Stop date: 08/25/16 12:25:00 REGULATORY LEADER Sodium Chloride 500 mL, 500 Inactive Micki 0.154 MEQ/ML ml/hr, Infuse 2017 Medic al Injectable Over: 1 hr, Center Solution Route: IV, 500, Drug form: INJ, ONCE, Priority: STAT, Dosing Weight 92.273 kg, Start date: 07/26/16 7:30:00 REGULATORY LEADER, Duration: 1 doses or times, Stop date: 07/26/16 7:30:00 REGULATORY LEADER Insulin regular 60 units) Inactive Micki WASTE: [...] Longer [place] as: Lipitor) Active 2016 [facility] divalproex sodium Notes: (Same No Longer [place] as: Depakote Active 2016 Medical ER) Once Center daily dosing; indicated for migraines. Divalproex sodium extended-rele ase tab. Do not chew or crush. "Do Not Crush" Lasix Notes: (Same No Longer [facility] as: Lasix) Active 2017 Medical Center MEDICATION WASTE Product Size: 40 mg Product Wasted: ___ mg Tylenol Notes: Max No Longer [place] acetaminophen Active 2016 Medical = 4000mg/day Center (4 gm/day). (Same as: Tylenol) Bupropion 150 mg, 1 No Longer [place] tab, Route: Active 2017 Medical PO, Drug Center form: ERTAB, Daily, Dosing Weight 92.273, kg, Start date: 07/24/16 9:00:00 REGULATORY LEADER, Duration: 30 day, Stop date: 08/22/16 9:00:00 REGULATORY LEADER 24 HR Divalproex Notes: (Same No Longer [place] Sodium 500 MG as: Depakote Active 2016 Medic al Extended Release ER) Center Tablet [Depakote] gabapentin 300 MG Notes: (Same No Longer [place] Oral Capsule as: Active 2017 Medical Neurontin) Center Aspirin 81 MG Notes: Take No Longer [place] Chewable Tablet with food. Active 2017 Medic al Center Lasix Notes: (Same Inactive [facility] as: Lasix) 2017 Medical Center MEDICATION WASTE Product Size: 40 mg Product Wasted: ___ mg Zoloft Notes: (Same No Longer [facility] as: Zoloft) Active 2017 Medical Center Protonix Notes: Tablet [place]er [place] should not be Active 2017 Medical chewed or Center crushed. (Same as: Protonix) metoprolol 100 mg, 2 No Longer [facility] extended release tab, Route: Active 2017 Med ical PO, Drug Center form: ERTAB, Daily, Start date: 07/24/16 9:00:00 REGULATORY LEADER, Duration: 30 day, Stop date: 08/22/16 9:00:00 REGULATORY LEADER Insulin Glargine Notes: Same No Longer [place] 100 UNT/ML as: Lantus) Active 2017 Medical Injectable Do not hold Center Solution [Lantus] insulin without contacting prescriber WASTE: F/P - Black; E - Municipal Trash Bin Hydralazine Notes: (Same [place] Longer [place] Hydrochloride 100 as: Active 2016 Medica l MG Oral Tablet Apresoline) Cente r May interfere w/enteral feedings Take With Food Ondansetron Notes: (Same Inactive [facility] as as: Zofran) 2017 Medical Center MEDICATION WASTE Product Size: 4 mg Product Wasted: ___ mg Morphine Notes: (Same Inactive [facility] as:MORPhine 2017 Medical Sulfate) Center Insulin, [...] _Date Glucagon 1 mg, Route: No Longer [place] IM, Drug Active 2016 Medical form: [place] PDR/INJ, PRN, Dosing Weight 92.273, kg, PRN Blood Glucose Results, Start date: 07/24/16 2:40:00 REGULATORY LEADER, Duration: 30 day, Stop date: 08/23/16 2:39:00 REGULATORY LEADER Dextrose 50% 25 gm, 50 mL, No Longer [place] Syringe Route: IVP, Active 2016 Medical Drug Form: [place] INJ, Dosing Weight 92.273, kg, PRN, PRN Blood Glucose Results, Start date: 07/24/16 2:40:00 REGULATORY LEADER, Duration: 30 day, Stop date: 08/23/16 2:39:00 REGULATORY LEADER Docusate Notes: (Same No Longer [place] as: Colace) Active 2017 Medical (Do Not Center Crush) Ondansetron Notes: (Same [place] Long[place] as: Zofran) Active 2017 Medical Center MEDICATION WASTE Product Size: 4 mg Product Wasted: ___ mg Lasix Notes: (Same Inactive [facility] as: Lasix) 2017 Medical Center MEDICATION WASTE Product Size: 40 mg Product Wasted: ___ mg Aspirin Notes: Take No Longer [facility] with food. Active 2017 Medical Center Prednisone Notes: Take Inactive [facility] with food. 2017 Medical [place] Albuterol 0.833 Notes: (Same No Longer H [place] MG/ML / as: Duoneb) Active 2017 Medical Ipratropium Center [place] 0.167 MG/ML Inhalant Solution [DuoNeb] Furosemide 40 [...] 100 mg 100 mg = 1 Active [facility] oral tablet, tab, PO, 2016 Medical extended release Daily, # [address] tab, 0 Refill(s) Hydralazine 100 mg = 1 Active [facility] Hydrochloride 100 tab, PO, BID, 2016 Medical MG Oral Tablet # 60 tab, 0 Cente r Refill(s) 200 ACTUAT 2 puff, Active [facility] Albuterol 0.09 INHALATION, 2016 Medic al MG/ACTUAT Metered PRN, PRN as Ce nter Dose Inhaler needed for wheezing, use as needed for shortness of breath or wheezing, # 8 gm, 0 Refill(s) Aspirin 81 MG 81 mg = 1 Active [facility] Chewable Tablet tab, PO, 2015 Medical Daily, # 30 Center tab, 0 Refill(s) Hydroxyzine 50 mg = 1 Active [facility] Hydrochloride 50 cap, PO, TID, 2015 M edical MG Oral Capsule X 30 day, # Cent er 90 cap, 0 Refill(s) losartan 25 mg 25 mg = 1 [place] oral tablet tab, PO, 2015 Medical Daily, # 30 Center tab, 0 Refill(s) Lasix Notes: (Same Inactive 06/15[facility] as: Lasix) 2016 Medical May cause GI Center upset. Give with food or milk. Magnesium Oxide Notes: (Same Inactive [facility] as: [employer]-Ox 2016 Medical 400) [place] Magnesium oxide [id number] elemental magnesium Dose=____mg magnesium oxide (___mg elemental magnesium) Magnesium Oxide Notes: (Same Inactive 06/13[facility] as: [facility]-Ox 2016 Medical 400) [place] Magnesium oxide [id number] elemental magnesium Dose=____mg magnesium oxide (___mg elemental magnesium) 24 HR Nifedipine Notes: (Same Inactive H [place] 30 MG Extended as: Adalat 2015 Medica l Release Tablet CC, Procardia [address] [Procardia] XL) Give on empty stomach. Take 1 hour before or 2 hours after meal; "Avoid grapefruit and grapefruit juice". Do not crush hydrALAZINE 50 mg Notes: (Same No Longer [place] oral tablet as: Active 2015 Medical Apresoline) Center May interfere w/enteral feedings Take With Food Wellbutrin XL Notes: (Same No Longer [place] as: Active 2015 Medical Wellbutrin Center XL) "Do Not Crush" Norvasc Notes: (Same Inactive [place] as: Norvasc) 2016 [facility] Center Insulin Glargine Notes: Same No Longer H [place] 100 UNT/ML as: Lantus) Active 2015 Medical Injectable Do not hold Center Solution [Lantus] insulin without contacting prescriber WASTE: F/P - Black; E - Municipal Trash Bin 1 ML paliperidone IM, qMonth, 0 Active [place] palmitate 156 Refill(s) 2015 Medical MG/ML Prefilled Center Syringe [Invega] amLODIPine 10 mg 10 mg = 1 No Longer [place] oral tablet tab, PO, Active 2015 Medical Daily, 0 Center Refill(s) pravastatin 40 mg 40 mg = 1 No Longer [place] oral tablet tab, PO, Active 2015 Medical Daily, 0 Center Refill(s) Sertraline 100 MG 200 mg = 2 Active [place] Oral Tablet tab, PO, 2016 Medical [Zoloft] Daily, 0 Center Refill(s) pantoprazole 40 40 mg = 1 Active Baljinder as MG Enteric Coated tab, PO, 2016 Medic al Tablet [Protonix] Daily, 0 Cente r Refill(s) gabapentin 300 MG 1 CAP PO BID Active H [place] Oral Capsule AND 1 CAP AT 2016 [...] Longer [place] as: Lipitor) Active 2016 [facility] Lactulose Notes: (Same [place] Long[place] as:Chronulac) Active 2016 [facility] Furosemide Notes: (Same No Longer Baljinder as as: Lasix) Active 2016 [facility] Center MEDICATION WASTE Product Size: 40 mg Product Wasted: ___ mg Aspirin 81 MG Notes: Take No Longer [place] Chewable Tablet with food. Active 2015 Medic al [place] gabapentin 300 MG Notes: (Same No Longer [place] Oral Capsule as: Active 2016 [facility] Neurontin) [place] Divalproex Sodium Notes: (Same No Longer [place] [...] Weight 86.364, kg, Start date: 06/11/16 9:00:00 REGULATORY LEADER, Duration: 30 day, Stop date: 07/10/16 9:00:00 REGULATORY LEADER Insulin Glargine Notes: Same No Longer H [...] as: Duoneb) Active 2016 Medical Ipratropium Center [place] 0.167 MG/ML Inhalant Solution [DuoNeb] gabapentin 300 MG 300 mg, Inactive [place] Oral Capsule Route: PO, 2016 Medical Drug form: Center CAP, Q12H, Dosing Weight 86.364, kg, (CrCl 30 - 59 ml/min), Start date: 06/10/16 21:00:00 REGULATORY LEADER, Duration: 30 day, Stop date: 07/10/16 9:00:00 REGULATORY LEADER divalproex sodium Notes: (Same No Longer [place] [...] Blood Glucose Results, Start date: 06/10/16 18:50:00 REGULATORY LEADER, Duration: 30 day, Stop date: 07/10/16 18:49:00 REGULATORY LEADER Glucagon 1 mg, Route: No Longer [place] IM, Drug Active 2015 Medical form: Center PDR/INJ, PRN, Dosing Weight 86.364, kg, PRN Blood Glucose Results, Start date: 06/10/16 18:50:00 REGULATORY LEADER, Duration: 30 day, Stop date: 07/10/16 18:49:00 REGULATORY LEADER Hydralazine Notes: (Same [place] Longer [place] [...] Center 86.364, kg, Start date: 06/10/16 18:06:00 REGULATORY LEADER, Stop date: 06/10/16 18:06:00 REGULATORY LEADER hydrOXYzine Notes: (Same [place] Long[place] pamoate as: Vistaril) Active 2015 Medical Center Furosemide 60 mg, Route: Inactive Baljinder as IVP, Drug 2015 Medical form: INJ, Center ONCE, Dosing Weight 86.364, kg, Start date: 06/10/16 16:32:00 REGULATORY LEADER, Stop date: 06/10/16 16:32:00 REGULATORY LEADER Lasix Notes: (Same Inactive [place] as: Lasix) 2015 Medical Center MEDICATION WASTE Product Size: 40 mg Product Wasted: _0__ mg Albuterol 0.833 Notes: (Same No Longer 06/10/ H [place] MG/ML / as: Duoneb) Active 2015 [facility] Ipratropium Center [place] 0.167 MG/ML Inhalant Solution [DuoNeb] Promethazine 25 mg = 1 Active [facility] Hydrochloride 25 supp, MS, 2015 Medic al MG Rectal Q6H, Nausea [...] Erythromycin 500 = 1 tab, PO, Active [facility] MG Enteric Coated Q6H, # 40 2015 Medi [place] Tablet tab, 0 Center Refill(s) Hydromorphone Notes: Same In[place] as: Dilaudid 2014 [facility] hydrOXYzine 0 Refill(s) Active [facility] pamoate [address] [place] [address] Dicyclomine 0 Refill(s) Active [address] Ondansetron 0 Refill(s) Active [address] Benztropine 0 Refill(s) Active [address] Clonidine 0 Refill(s) Active [address] Zoloft 0 Refill(s) Active [address] Metoclopramide 0 Refill(s) [place] [address] [place] [address] Erythromycin 0 [place](s[place] [address] [place] [address] Tramadol 0 Refill(s) Active [address] Depakote 0 Refill(s) Active [address] quetiapine 0 Refill(s) Active [address] Sodium Chloride 2,000 mL, Inactive [place] 0.154 MEQ/ML 1,000 ml/hr, 2014 Medica l Injectable Infuse Over: Center Solution 2 hr, Route: IV, 2,000, Drug form: INJ, ONCE, Priority: STAT, Dosing Weight 75 kg, Start date: 06/26/14 4:56:00, Duration: 1 doses or times, Stop date: 06/26/14 4:56:00 Lorazepam Notes: (Same Inactive [facility] as: Ativan) [address] [place] [address] Metoclopramide Notes: (Same Inactive [facility] as: Reglan) [address] [place] [address] Zofran ODT 4 mg 4 mg, 1 tab, Active [facility] oral tablet, PO, BID, PRN, 2012 [facility] disintegrating Dissolve tab under tongue, 10 tab, Nausea and Vomiting, Substitution AllowedDissol ve tab under tongue Saline Flush 0.9% 5 mL, Route: No Longer Marry IVP, Drug Active 2012 [facility] Form: INJ, Dosing Weight 63.636, kg, PRN, PRN Line Flush, Start date: 04/14/13 23:10:00, Duration: 24 hr, Stop date: 04/15/13 23:09:00(Same as: BD Posiflush) morphine Sulfate 4 mg, Route: No Longer Marry IVP, ONCE, Active 2012 [facility] Dosing Weight 63.636, kg, Priority: STAT, Start date: 04/14/13 23:10:00, Stop date: 04/14/13 23:10:00 ketorolac 30 mg, Route: No Longer Marry IVP, ONCE, 2012 [facility] Dosing Weight 63.636, kg, Priority: STAT, Start date: 04/14/13 23:10:00, Stop date: 04/14/13 23:10:00 ondansetron 4 mg, Route: No Longer Marry IVP, ONCE, 2012 [facility] Dosing Weight 63.636, kg, Priority: STAT, Start date: 04/14/13 23:10:00, Stop date: 04/14/13 23:10:00 Sodium Chloride 1,000 mL, No Longer Marry 0.9% IV 1,000 mL Rate: 125 Active 2012 [facility] ml/hr, Infuse over: 8 hr, Route: IV, Dosing Weight 63.636 kg, Total Volume: 1,000, Start date: 04/14/13 23:10:00, Duration: 30 day, Stop date: 05/14/13 23:09:00 morphine Sulfate 5 mg, Route: IVP No Longer Hernandez IVP, ONCE, 2011 [facility] Dosing Weight 58.636, kg, Priority: STAT, Start date: 03/14/12 20:15:00, Stop date: 03/14/12 20:15:00 Sodium Chloride 500 mL, Rate: IV No Longer [facility] 0.9% (Bolus) IV 500 ml/hr, 2011 [facility] 500 mL Infuse over: 1 hr, Route: IV, kg, Total Volume: 500, Bolus Dose, Priority: STAT, Start date: 03/14/12 18:45:00, Duration: 1 doses or times, Stop date: 03/14/12 19:44:00 ondansetron 4 mg, Route: IVP No Longer Hernandez IVP, ONCE, 2011 [facility] Dosing Weight 58.636, kg, Priority: STAT, Start date: 03/14/12 17:19:00, Stop date: 03/14/12 17:19:00 morphine Sulfate 5 mg, Route: IVP No Longer Hernandez IVP, ONCE, 2011 [facility] Dosing Weight 58.636, kg, Priority: STAT, Start date: 03/14/12 17:19:00, Stop date: 03/14/12 17:19:00 pantoprazole 40 mg, Route: IVP No Longer Hernandez IVP, ONCE, 2011 [facility] Dosing Weight 58.636, kg, For IV push reconstitute with 10 ml 0.9% sodium chloride and push over at least 3 minutes, Priority: STAT, Start date: 03/14/12 17:19:00, Stop date: 03/14/12 17:19:00 Sodium Chloride 500 mL, Rate: IV No Longer [place] 0.9% (Bolus) IV 1,000 ml/hr, Active 2011 [facility] 500 mL Infuse over: 0.5 hr, Route: IV, kg, Total Volume: 500, Bolus dose, Priority: STAT, Start date: 03/14/12 17:19:00, Duration: 1 doses or times, Stop date: 03/14/12 17:48:00 Reglan 10 mg oral 10 mg, 1 tab, PO Active [facility] tablet PO, 2011 Medical QID-Before Center Meals, 120 tab, 1, 1, Substitution Allowed insulin 10 unit, 0.1 SUB-Q No Longer [facility] isophane-NPH mL, Route: Active 2011 Medical SUB-Q, Drug Center form: INJ, Bedtime, Start date: 11/29/11 21:00:00, Duration: 30 day, Stop date: 12/28/11 21:00:00 Insulin regular 8 unit, 0.08 SUB-Q No Longer [facility] mL, Route: Active 2011 Medical SUB-Q, Drug Center form: SOLN, Bedtime, Start date: 11/29/11 21:00:00, Duration: 30 day, Stop date: 12/28/11 21:00:00 trazodone 100 mg 200 mg, 2 PO No Longer [facility] oral tablet tab, Route: Active 2011 Medical PO, Drug Center form: TAB, Bedtime, Start date: 11/29/11 21:00:00, Duration: 30 day, Stop date: 12/28/11 21:00:00 Geodon 120 mg, 3 PO No Longer [facility] cap, Route: Active 2011 Medical PO, Drug Center form: CAP, Bedtime, Start date: 11/29/11 21:00:00, Duration: 30 day, Stop date: 12/28/11 21:00:00 amLODipine 5 mg, 1 tab, PO No Longer [facility] [place] Route: PO, Active 2011 Medical Drug form: Center TAB, ONCE, Priority: NOW, Start date: 11/29/11 20:11:00, Stop date: 11/29/11 20:11:00 morphine Sulfate 2 mg, Route: IVP No Longer Omidvar Micki IVP, ONCE, Active 2011 Medical Start date: Center 11/29/11 16:33:00, Stop date: 11/29/11 16:33:00 morphine Sulfate 2 mg, 0.5 mL, IVP No Longer Omidvar [facility] Route: IVP, Active 2011 Medical Drug form: [place] INJ, ONCE, Start date: 11/29/11 16:32:00, Stop date: 11/29/11 16:32:00 Tylenol 650 mg, 2 PO No Longer Omidvar [facility] tab, Route: Active 2011 Medical PO, [...] 10 unit, 0.1 SUB-Q No Longer Gunnar [facility] mL, Route: Active 2011 Medical SUB-Q, Drug Center form: SOLN, Daily, Start date: 11/29/11 9:00:00, Duration: 30 day, Stop date: 12/28/11 9:00:00 Effexor XR 75 mg, 1 cap, PO No Longer [place]ar [place] Route: PO, Active 2011 Medical Drug form: [place] ERCAP, Daily, Start date: 11/29/11 9:00:00, Duration: [...] Route: PO, Active 2011 Medical Drug form: [place] TAB, Daily, Start date: 11/29/11 9:00:00, Duration: 30 day, Stop date: 12/28/11 9:00:00 insulin aspart 10 unit, 0.1 SUB-Q No Longer Gunnar 11/28[facility] [place] mL, Route: Active 2011 Medical SUB-Q, Drug Center form: SOLN, TID-Before Meals, PRN Blood Glucose Results, Start date: 11/29/11 1:30:00, Duration: 30 day, Stop date: 12/29/11 1:29:00 Dextrose 50% 25 gm, 50 mL, IVP No Longer Gunnar [facility] Syringe Route: IVP, Active 2011 Medical [...] 5 ml, Route: IVP No Longer Gunnar [facility] IVP, Drug Active 2011 Medical Form: INJ, Center PRN, PRN Line Flush, Start date: 11/29/11 1:28:00, Duration: 30 day, Stop date: 12/29/11 1:27:00 ondansetron 4 mg, 2 mL, IVP No Longer [place] Route: IVP, Active 2011 Medical Drug form: [place] INJ, Q8H, PRN Nausea & Vomiting, Start date: 11/29/11 1:28:00, Duration: 30 day, Stop date: 12/29/11 1:27:00 Reglan 10 mg, 2 mL, IVP No Longer [facility] 11/28[facility] Route: IVP, Active 2011 Medical Drug form: [place] INJ, Q6H, Priority: STAT, Start date: 11/29/11 1:28:00, Duration: 30 day, Stop date: 12/29/11 0:00:00 Protonix 40 mg, Route: IV No Longer [facility] Baljinder as IV, Drug Active 2011 Medical form: INJ, Center ONCE, Priority: STAT, Start date: 11/29/11 1:28:00, Stop date: 11/29/11 1:28:00 metoclopramide 10 mg, 2 mL, IVP [facility] 11/28[facility] Route: IVP, Active 2011 Medical Drug form: Center INJ, ONCE, Priority: STAT, Start date: 11/28/11 23:01:00, Stop date: 11/28/11 23:01:00 Zofran 4 mg, 2 mL, IVP [facility] Longer [facility] 11/28[facility] Route: IVP, Active 2011 Medical Drug form: Center INJ, ONCE, Priority: STAT, Start date: 11/28/11 21:31:00, Stop date: 11/28/11 21:31:00 NS (Bolus) IV 1,000 mL, IV No Longer [facility] Baljinder as 1,000 mL Rate: 1,000 [...] mg, 1 mL, IVP No Longer Domenico [facility] Route: IVP, Active 2011 Medical Drug form: Center INJ, ONCE, Priority: STAT, Start date: 11/28/11 15:35:00, Stop date: 11/28/11 15:35:00 Novolin R 100 8 unit, SUB-Q Active [facility] Baljinder as units/mL SUB-Q, Q12H, 2011 Medical injectable 2 vial, Center solution Substitution Allowed, SOLN Novolin N 100 10 unit, SUB-Q Active [facility] [place] units/mL SUB-Q, 2011 Medical subcutaneous Bedtime, 10 Center injection ml, Substitution Allowed, SUSP Novolin N 100 14 unit, SUB-Q Active [facility] [place] units/mL SUB-Q, QAM, 1 2011 Medical subcutaneous vial, Center injection Substitution Allowed, SUSP magnesium oxide 400 mg, 1 PO No Longer [facility] tab, Route: Active 2011 Medical PO, Drug Center form: TAB, ONCE, Priority: STAT, Start date: 09/18/11 9:55:00, Stop date: 09/18/11 9:55:00 Insulin regular 8 unit, 0.08 SUB-Q No Longer [facility] 09/17 [facility] mL, Route: Active 2011 Medical SUB-Q, Drug Center form: SOLN, ONCE, Priority: STAT, Start date: 09/18/11 9:22:00, Stop date: 09/18/11 9:22:00 Lactated Ringers 1,000 mL, IV No Longer [facility] ([place]) IV 1,000 Rate: 1,000 Active 2011 Med ical mL ml/hr, Infuse Center over: 1 hr, Route: IV, Total Volume: 1,000, [place] Dose, Priority: STAT, Start date: 09/18/11 9:16:00, Duration: 1 doses or times, Stop date: 09/18/11 10:15:00 Sodium Chloride 1,000 mL, IV No Longer [facility] 0.9% ([place]) IV Rate: 1,000 Active [...] 100 mg 100 mg, 1 PO Active [place] oral capsule cap, PO, BID, 2011 Medic al 60 cap, Center Substitution Allowed, CAP clindamycin 150 300 mg, 2 PO Active [place] mg oral capsule cap, PO, Q8H, 2011 Me dical 30 cap, Center Substitution Allowed, CAP [place] 10/325 oral 1 tab, PO, PO Active [place] tablet Q4H, PRN, 2011 Medical tab, Pain, Center Substitution Allowed, Maintenance, TAB [place] 10/325 oral 1 tab, Route: PO No [...] naloxone 0.04 mg, 0.1 IVP No Longer [place] mL, Route: Active 2011 Medical IVP, Drug Center form: INJ, Q2MIN, PRN Narcotic Reversal, Start date: 09/07/11 9:19:00, Duration: 8 doses or times, Stop date: Limited # of times ondansetron 4 mg, 2 mL, IVP No Longer [place] Baljinder as Route: IVP, Active 2011 Medical Drug form: Center INJ, ONCE, PRN Nausea & Vomiting, Start date: 09/07/11 9:19:00 hydromorphone 0.5 mg, 0.25 IVP No Longer [place] mL, Route: Active 2011 Medical IVP, Drug Center form: INJ, Q5Min, PRN Pain Score 4-6, Start date: 09/07/11 9:19:00, Duration: 5 doses or times, Stop date: Limited # of times acetaminophen-hyd 15 mL, Route: PO No Longer [place] M[place] rocodone 325 PO, Drug Active 2011 Medical mg-10 mg/15 mL Form: SOLN, Cente r oral solution Q4H, PRN Pain Score 4-6, Start date: 09/07/11 9:19:00, Duration: 1 day, Stop date: 09/08/11 8:00:00 Lactated Ringers 1,000 mL, IV No Longer Omidvar [place] IV 1,000 mL Rate: 125 Active 2011 Medical ml/hr, Infuse Center over: 8 hr, Route: IV, Dosing Weight 68.182 kg, Total Volume: 1,000, Start date: 09/07/11 9:06:00, Duration: 30 day, Stop date: 10/07/11 9:05:00 clindamycin 600 mg, IVPB No Longer Arias [facility] Route: IVPB, Active 2011 Medical ONCE, [...] 8.6 mg, 1 PO No Longer Omidvar [facility] tablet tab, Route: Active 2011 Medical [...] 40 mEq, 2 PO No Longer Omidvar [facility] chloride tab, Route: Active 2011 Medical PO, Drug Center form: ERTAB, ONCE, Start date: 09/05/11 9:11:00, Stop date: 09/05/11 9:11:00 Dulcolax Laxative 10 mg, 2 tab, PO No Longer Wong [place] Route: PO, Active 2011 Medical Drug form: Center ECTAB, Daily, PRN Constipation, Priority: NOW, Start date: 09/04/11 23:00:00, Duration: 30 day, Stop date: 10/04/11 22:59:00 Zofran 4 mg, 2 mL, IV No Longer Peg [place] Route: IV, Active 2011 Medical Drug form: Center INJ, Q4H, PRN as needed for nausea/vomiti ng, Priority: NOW, Start date: 09/04/11 18:11:00, Duration: 30 day, Stop date: 10/04/11 18:10:00 [place] 10/325 oral 1 tab, Route: PO No Longer Dez [place] tablet PO, Drug Active 2011 Medical Form: [...] Duration: 30 day, Stop date: 10/04/11 9:49:00 [place] 10/325 oral 1 tab, Route: PO No [...] 40 mEq, 2 PO No Longer Omidvar [facility] chloride tab, Route: Active 2011 Medical PO, Drug Center form: ERTAB, ONCE, Start date: 09/03/11 8:39:00, Stop date: 09/03/11 8:39:00 [place] 5/325 oral 1 tab, Route: PO No Longer Kavon 08/19 [facility] tablet PO, Drug Active 2011 Medical [...] Route: PO, Active 2011 Medical Drug form: [place] ERCAP, Daily, Give qAM after today's dose., Start date: 09/02/11 12:00:00, Duration: 30 day, Stop date: 10/02/11 9:00:00 [place] 5/325 oral 1 tab, Route: PO No Longer Kavon 08/19 [facility] [place] tablet PO, Drug Active 2011 Medical Form: TAB, [place] Q4H, PRN Pain, Start date: 09/02/11 11:25:00, Duration: 30 day, Stop date: 10/02/11 11:24:00 magnesium sulfate 4 gm, 50 mL, IVPB No Longer Omidvar [facility] Route: IVPB, Active 2011 Medical Drug form: [place] INJ, ONCE, Start date: 09/02/11 11:15:00, Stop date: 09/02/11 11:15:00 Lovenox 40 mg, 0.4 SUB-Q No Longer Movva [facility] mL, Route: Active 2011 Medical SUB-Q, Drug Center form: INJ, Daily, Start date: 09/02/11 9:00:00, Duration: 30 day, Stop date: 10/01/11 9:00:00 vancomycin 1 gm, Route: IVPB No Longer Anabelle Baljinder as IVPB, Drug Active 2011 Medical form: INJ, [place] [id number], Start date: 09/02/11 9:00:00, Duration: 30 day, Stop date: 10/01/11 21:00:00 clindamycin 600 mg, 4 mL, IVPB No Longer [place] (SCIP[place] Route: IVPB, Active 2011 Medical [id number], Start Center date: 09/02/11 5:00:00, Duration: 3 doses or times, Stop date: 09/02/11 21:00:00 clindamycin 600 mg, 4 mL, IVPB No Longer [place] Micki (SCIP) Route: IVPB, Active 2011 [facility] [id number], Start Center date: 09/01/11 23:00:00, Duration: 3 doses or times, Stop date: 09/02/11 15:00:00 insulin 15 unit, 0.15 SUB-Q No Longer Omidvar [facility] isophane-NPH mL, Route: Active 2011 Medical [...] hydromorphone 0.5 mg, IVP No Longer Feliciano [facility] Route: IVP, Active 2011 Medical Q5Min, PRN Center Pain Score 4-6, Start date: 09/01/11 20:07:00, Duration: 5 doses or times, Stop date: Limited # of times naloxone 0.04 mg, IVP No Longer Feliciano [facility] Route: IVP, Active 2011 Medical Q2MIN, PRN Center Narcotic Reversal, Start date: 09/01/11 20:07:00, Duration: 8 doses or times, Stop date: Limited # of times flumazenil 0.2 mg, IVP No Longer Feliciano [facility] Route: IVP, Active 2011 Medical PRN, [...] Drug Active 2011 Medical form: INJ, Center [id number], Start date: 09/01/11 20:00:00, Duration: 30 day, Stop date: 10/01/11 8:00:00 Lactated Ringers 1,000 mL, IV No Longer Wong [facility] IV 1,000 mL Rate: 125 Active 2011 Medical ml/hr, Infuse Center over: 8 hr, Route: IV, Dosing Weight 68.2 kg, Total Volume: 1,000, Start date: 09/01/11 19:55:00, Duration: 30 day, Stop date: 10/01/11 19:54:00 vancomycin 1 gm, Route: IVPB No Longer Movva 09/01[facility] as IVPB, Drug Active 2011 Medical form: INJ, Center [id number], Start date: 09/01/11 19:00:00, Duration: 30 day, Stop date: 10/01/11 7:00:00 insulin aspart 6 unit, 0.06 SUB-Q No Longer Movva [facility] mL, Route: Active 2011 Medical SUB-Q, Drug Center form: SOLN, TID-Before Meals, PRN Blood Glucose Results, Start date: 09/01/11 18:23:00, Duration: 30 day, Stop date: 10/01/11 18:22:00 glucagon 1 mg, Route: IM No Longer Movva [facility] IM, Drug Active 2011 Medical form: [place] PDR/INJ, PRN, PRN Blood Glucose Results, Start date: 09/01/11 18:23:00, Duration: 30 day, Stop date: 10/01/11 18:22:00 Dextrose 50% 25 gm, 50 mL, IVP No Longer Movva [facility] Syringe Route: IVP, Active 2011 Medical Drug Form: [place] INJ, PRN, PRN Blood Glucose Results, Start date: 09/01/11 18:23:00, Duration: 30 day, Stop date: 10/01/11 18:22:00 morphine Sulfate 2 mg, 1 mL, IVP No Longer Beni [facility] [place] Route: IVP, Active 2011 Medical Drug form: [place] INJ, Q4H, PRN Severe Pain, Start date: 09/01/11 16:14:00, Stop date: 10/01/11 16:13:00 Lactated Ringers 1,000 mL, IV No Longer [place] [facility] IV 1,000 mL Rate: 100 Active 2011 Medical ml/hr, Infuse Center over: 10 hr, Route: IV, Dosing Weight 68.182 kg, Total Volume: 1,000, Start date: 09/01/11 14:03:00, Duration: 30 day, Stop date: 10/01/11 14:02:00 morphine Sulfate 4 mg, 1 mL, IVP No Longer [facility] [place] Route: IVP, Active 2011 Medical Drug form: Center INJ, ONCE, Start date: 09/01/11 12:13:00, Stop date: 09/01/11 12:13:00 Lactated Ringers 2,000 mL, IV No Longer [facility] ([place]) IV 2,000 Rate: 100 Active 2011 Medic al mL ml/hr, Infuse Center over: 20 hr, Route: IV, Dosing Weight 68.18 kg, Total Volume: 2,000, Start date: 09/01/11 10:42:00, Duration: 1 doses or times, Stop date: 09/02/11 6:41:00 Insulin regular 8 unit, 0.08 SUB-Q No Longer [facility] [place] mL, Route: Active 2011 Medical SUB-Q, Drug Center form: SOLN, ONCE, Priority: STAT, Start date: 09/01/11 10:28:00, Stop date: 09/01/11 10:28:00 Sodium Chloride 1,000 mL, IV No Longer [facility] [place] 0.9% ([place]) IV Rate: 1,000 Active 2011 Medi tawnya 1,000 mL ml/hr, Infuse Center over: 1 hr, Route: IV, Dosing Weight 68.18 kg, Total Volume: 1,000, [place] Dose, Priority: STAT, Start date: 09/01/11 9:53:00, Duration: 1 doses or times, Stop date: 09/01/11 10:52:00 morphine Sulfate 4 mg, 1 mL, IVP No Longer Sandeep [facility] [place] Route: IVP, Active 2011 Medical Drug form: [...] Sodium Chloride 1,000 mL, IV No Longer [place] 0.9% ([place]) IV Rate: 1,000 Active [...] Chloride 1,000 mL, IV No Longer [place] 0.9% ([place]) IV Rate: 1,000 Active 2011 [facility] tawnya 1,000 mL ml/hr, Infuse Center over: 1 hr, Route: IV, Dosing Weight 68.182 kg, Total Volume: 1,000, [place] Dose, Priority: STAT, Start date: 09/01/11 2:29:00, Duration: 1 doses or times, Stop date: 09/01/11 3:28:00 potassium 40 mEq, 2 PO No Longer [facility] chloride tab, Route: Active 2011 Medical PO, Drug Center form: ERTAB, BID, Start date: 08/23/11 9:00:00, Duration: 2 doses or times, Stop date: 08/23/11 17:00:00 amLODipine 5 mg 5 mg, 1 tab, PO Active [facility] oral tablet PO, Daily, 30 2011 Medica l tab, 3, 3, Center Substitution Allowed, TAB lisinopril 20 mg 40 mg, 2 tab, PO Active [facility] [place] oral tablet PO, Daily, 60 2011 Medica l tab, 3, 3, Center Substitution Allowed, TAB Novolin N 100 18 Units, SUB-Q Active [facility] units/mL SUB-Q, BID, 3 2011 Medical subcutaneous vial, 3, 3, Center injection Substitution Allowed, SUSP insulin regular 5 Units, SUB-Q Active [facility] [place] human recombinant SUB-Q, TID, 2011 Mn dical 100 units/mL 30 vial, 3, Center injectable 3, solution Substitution Allowed, before breakfast lunch and dinner, SOLNbefore breakfast lunch and dinner potassium 20 mEq, 100 IVPB No Longer [facility] chloride mL, Route: Active 2011 Medical IVPB, Drug Center form: INJ, Q2H, Start date: 08/23/11 8:00:00, Duration: 2 doses or times, Stop date: 08/23/11 10:00:00 calcium chloride 1 gm, Route: IVPB No Longer [facility] [place] IVPB, ONCE, Active 2011 Medical Priority: [...] gm, 50 mL, IVPB No Longer Akmal [facility] Route: IVPB, Active 2011 Medical Drug form: Center INJ, ONCE, Total dose = 2 gm, Start date: 08/23/11 6:26:00, Duration: 1 doses or times, Stop date: 08/23/11 6:26:00 magnesium sulfate 2 gm, 50 mL, IVPB No Longer Ahmed [facility] Route: IVPB, Active 2011 Medical Drug form: Center INJ, ONCE, Total dose = 2 gm, Start date: 08/22/11 10:26:00, Duration: 1 doses or times, Stop date: 08/22/11 10:26:00 calcium gluconate 1,000 mg, 10 IVPB No Longer Ahmed [facility] mL, Route: Active 2011 Medical IVPB, ONCE, Center Start date: 08/22/11 10:25:00, Stop date: 08/22/11 10:25:00 potassium 40 mEq, 2 PO No Longer Akmal [facility] chloride 20 mEq tab, Route: Active 2011 Medi [place] oral tablet, PO, Drug Center extended release form: ERTAB, Daily, Start date: 08/22/11 9:00:00, Duration: 30 day, Stop date: 08/22/11 12:00:00 magnesium sulfate 2 gm, 50 mL, IVPB No Longer Akmal [facility] Route: IVPB, Active 2011 Medical Drug [...] 6.25 mg, 0.25 IVPB No Longer Rivero [facility] mL, Route: Active 2011 Medical IVPB, [...] mg, 2 mL, IVP No Longer Ahmed [facility] Route: IVP, Active 2011 Medical Drug form: Center INJ, Q8H, PRN Nausea, Start date: 08/20/11 11:15:00, Duration: 30 day, Stop date: 09/19/11 11:14:00 insulin 10 unit, SUB-Q No Longer Rivero [facility] isophane-NPH Route: SUB-Q, Active 2011 Medic al ONCE, Start Center date: 08/20/11 10:00:00, Stop date: 08/20/11 10:00:00 trazodone 100 mg 200 mg, 2 PO [place] oral tablet tab, PO, 2011 Medical Bedtime, 90 Center tab, Substitution Allowed, TAB benztropine 1 mg 1 mg, 1 tab, PO Active [facility] oral tablet PO, BID, 60 2011 Medical tab, Center Substitution Allowed, TAB Geodon 60 mg oral 120 mg, 2 PO Active [place] capsule cap, PO, 2011 Medical Bedtime, 60 Center cap, Substitution Allowed, CAP insulin 10 unit, SUB-Q No Longer Rivero [facility] isophane-NPH Route: SUB-Q, Active 2011 Medic al Q12H, Start Center date: 08/20/11 9:00:00, Duration: 30 day, Stop date: 09/18/11 21:00:00 Geodon 60 mg, 3 cap, PO No Longer [place] Route: PO, Active 2011 Medical Drug form: Center CAP, BID, Start date: 08/20/11 9:00:00, Duration: 30 day, Stop date: 09/18/11 17:00:00 Effexor XR 75 mg, 1 cap, PO No Longer House [facility] Route: PO, Active 2011 Medical Drug form: Center ERCAP, Daily, Start date: 08/20/11 9:00:00, Duration: 30 day, Stop date: 09/18/11 9:00:00 potassium 15 mmol, 5 IV No Longer Rivero Baljinder as phosphate mL, Route: Active 2011 Medical IV, ONCE, Center Start date: 08/20/11 8:30:00, Stop date: 08/20/11 8:30:00 potassium 20 mEq, 100 IVPB No Long[place] chloride mL, Route: Active 2011 [facility] IVPB, Drug Center form: INJ, Q2H, Total dose = 80 mEq, Start date: 08/20/11 8:00:00, Duration: 4 doses or times, Stop date: 08/20/11 14:00:00 potassium 15 mmol, IVPB No Longer [facility] phosphate Route: IVPB, Active 2011 [facility] PRN, PRN Center Abnormal Lab Result, Start date: 08/20/11 6:47:00, Duration: 30 day, Stop date: 09/19/11 7:46:00 Insulin regular 6 unit, 0.06 SUB-Q No Longer [facility] mL, Route: Active 2011 [facility] SUB-Q, Drug Center form: SOLN, ONCE, Start date: 08/20/11 3:38:00, Stop date: 08/20/11 3:38:00 Insulin regular 10 unit, SUB-Q No Longer [facility] [place] SUB-Q, BID, Active 2011 Medical Substitution Center Allowed insulin 10 unit, SUB-Q No Longer [place] isophane-NPH SUB-Q, BID, Active 2011 Medical Substitution Center Allowed NS 1,000 mL 1,000 mL, IV No Longer [facility] [place] Rate: 150 Active 2011 Medical ml/hr, [...] regular 3 unit, SUB-Q No Longer Rivero [facility] Route: SUB-Q, Active 2011 Medical Bedtime, PRN Center Blood Glucose Results, Start date: 08/20/11 2:48:00, Duration: 30 day, Stop date: 09/19/11 2:47:00 Dextrose 50% 25 gm, 50 ml, IVP No Longer Rivero [facility] Syringe Route: IVP, Active 2011 Medical Drug Form: Center INJ, PRN, PRN Blood Glucose Results, Start date: 08/20/11 2:46:00, Duration: 30 day, Stop date: 09/19/11 3:45:00 ondansetron 4 mg, Route: IVP No Longer [facility] [place] IVP, Drug Active 2011 Medical form: INJ, Center ONCE, Priority: STAT, Start date: 08/20/11 1:42:00, Stop date: 08/20/11 1:42:00 GI cocktail 30 ml, Route: PO No Longer [facility] PO, Drug Active 2011 Medical Form: SUSP, Center ONCE, STAT, Start date: 08/19/11 23:12:00, Stop date: 08/19/11 23:12:00 ondansetron 4 mg, Route: PO No Longer [facility] [place] PO, Drug Active 2011 Medical form: TABDIS, Center ONCE, Priority: STAT, Start date: 08/19/11 23:10:00, Stop date: 08/19/11 23:10:00 Lactated Ringers 1,000 mL, IV No Longer [facility] ([place]) IV 1000 Rate: 1,000 Active 2011 Medi tawnya mL ml/hr, Infuse Center over: 1 hr, Route: IV, Total Volume: 1,000, [place] Dose, Priority: STAT, Start date: 08/19/11 23:10:00, Duration: 1 doses or times, Stop date: 08/20/11 0:09:00 Insulin regular 7 unit, 0.07 SUB-Q No Longer [facility] 08/19 [facility] mL, Route: Active 2011 Medical SUB-Q, Drug Center form: SOLN, ONCE, Priority: STAT, Start date: 08/19/11 22:15:00, Stop date: 08/19/11 22:15:00 Geodon 60 mg oral 60 mg, 1 cap, PO No Longer Rivero [facility] capsule PO, BID, 180 Active 2011 Medical cap, Center Substitution Allowed, CAP trazodone 300 mg 300 mg, 1 PO No Longer [place] oral tablet tab, PO, Active 2011 Medical Bedtime, 15 Center tab, Substitution Allowed, TAB Effexor XR 75 mg 75 mg, 1 cap, PO Active Rivero [facility] oral capsule, PO, Daily, 2011 [facility] extended release cap, Center Substitution Allowed Lactated Ringers 1,000 mL, IV No Longer Rivero [place] IV 1,000 mL Rate: 250 Active 2011 Medical ml/hr, Infuse Center over: 4 hr, Route: IV, Total Volume: 1,000, Priority: STAT, Start date: 08/19/11 17:03:00, Duration: 30 day, Stop date: 09/18/11 17:02:00 Sodium Chloride 100 mL, Rate: IV No Longer Rivero [facility] 0.9% (titrate) Titrate, Active 2011 Medical [...] 4 mg, Route: IVP No Longer [facility] IVP, ONCE, Active 2011 Medical Priority: Center STAT, Start date: 08/19/11 15:57:00, Stop date: 08/19/11 15:57:00 Reglan 10 mg, Route: IV No Longer [facility] IV, ONCE, Active 2011 Medical Start date: Center 08/19/11 15:57:00, Stop date: 08/19/11 15:57:00 Lactated Ringers 1,000 mL, IV No Longer [facility] ([place]) IV 1000 Rate: 1,000 Active 2011 [facility] tawnya mL ml/hr, Infuse Center over: 1 hr, Route: IV, Total Volume: 1,000, [place] Dose, Priority: STAT, Start date: 08/19/11 15:12:00, Duration: 1 doses or times, Stop date: 08/19/11 16:11:00 Allergies, Adverse Reactions, Alerts Substance Category Reaction Severity Reaction Status Date Comments S ource type Reported codeine Assertion Drug Active [facility] penicillins Assertion Drug Active [facility] Prolex DM Assertion Drug Active [facility] Ambien Assertion Drug Active [facility] lisinopril Assertion angioedema Drug Active [facility] Immunizations No Data Provided for This Section Results Order Name Results Value Reference Date Interpretation Comments Alycia rce Range ELECTROLYT AGAP 14.6 10.0 - 02/09 [facility] ES 20.0 /2017 Medical Center ELECTROLYT eGFR 33 02/09 Result [facility] Comment: The Medical eGFR is Center [...] Calcium Lvl 8.3 8.5 - 10.5 07/30 [facility] ELECTROLYT Glucose Lvl 81 70 - 99 07/30 [facility] ELECTROLYT Creatinine 1.95 0.50 - 07/30 [facility] Lvl 1.40 [facility] ELECTROLYT BUN 55 7 - 22 07/30 [facility] ELECTROLYT CO2 19 24 - 32 07/[address] [facility]2016 [facility] ELECTROLYT Chloride Lvl 110 95 - 109 07/[address] [facility] ELECTROLYT Sodium Lvl 139 135 - 145 07/[address] ELECTROLYT Potassium 4.6 3.5 - 5.1 07/30 [facility] Lvl [facility] HEMATOLOGY Lymphocytes 30.4 20.0 - 07/30 [facility] 40.0 [facility] HEMATOLOGY Eosinophils 4.5 0.0 - 4.0 07/30 [facility] HEMATOLOGY Monocytes 13.7 2.0 - 12.0 07/30 [facility] [address] [place] [address] HEMATOLOGY Segs-Bands # 2.6 1.5 - 8.1 07/[address] [facility] as [facility] HEMATOLOGY Basophils 0.7 0.0 - 1.0 07/30 [facility] [address] [place] [address] HEMATOLOGY Monocytes # 0.7 0.0 - 0.8 07/30 [facility] HEMATOLOGY Lymphocytes 1.6 1.0 - 5.5 07/30 [facility] # [facility] HEMATOLOGY Eosinophils 0.2 0.0 - 0.5 07/30 [facility] # [facility] HEMATOLOGY Segs 50.7 45.0 - 07/30 [place] 75.0 [facility] HEMATOLOGY PB Smear Peripheral 07/30 [facility] blood /2016 [facility] smear Center shows hypochromi c normocytic anemia with anisopoiki locytsosis , no increase in schistocyt es, slight polychroma antonia, frequent eccinocyte s, occasional eliptocyte s, and moderate thrombocyt openia. Impression : (1) No evidence of microangio pathic hemolysis (2) RBC morphology is suggestive of anemia of chronic disease or iron deficiency anemia, and renal disease. CPT: 02069 HEMATOLOGY Hct 28.1 36.0 - 07/30 [place] 48.0 [facility] HEMATOLOGY RBC 3.39 4.20 - 07/30 [place] 5.40 /2016 [facility] HEMATOLOGY Hgb 8.9 12.0 - 07/30 [place] 16.0 /2016 [facility] HEMATOLOGY WBC 5.1 3.7 - 10.4 07/30 [facility] HEMATOLOGY MPV 11.3 7.4 - 10.4 07/30 [facility] HEMATOLOGY Platelet 118 133 - 450 07/30 [facility] HEMATOLOGY MCHC 31.8 32.0 - 02 [place] 36.0 [facility] HEMATOLOGY RDW 18.0 11.5 - 07/30 14.5 [facility] HEMATOLOGY MCV 83.0 80.0 - 07/30 98.0 [facility] HEMATOLOGY MCH 26.4 27.0 - 07/30 [place] 31.0 [facility] IMMUNOLOGY C3 137 88 - 201 07/30 [facility] IMMUNOLOGY HIV. Negative Negative 07[facility] (07/30/16 5:32 AM) [place] HEMATOLOGY PB Smear Peripheral 07/29 [facility] blood [facility] smear Center shows hypochromi c normocytic anemia with anisopoiki locytsosis , no increase in schistocyt es, moderate polychroma antonia, frequent eccinocyte s, occasional eliptocyte s, and moderate thrombocyt openia. Impression : (1) No evidence of microangio pathic hemolysis (2) RBC morphology is suggestive of anemia of chronic disease or iron deficiency anemia, and renal disease. CPT: 05577 IMMUNOLOGY HIV. Negative Negative 07/29 [facility] *NA* [facility] (07/29/16 5:05 AM) [place] IMMUNOLOGY C3 92 88 - 201 07/29 [facility] CHEM PANEL eGFR 25 07/28 [facility] Comment: The [facility] eGFR is Center calculated using the CKD-EPI [...] PANEL BUN 55 7 - 22 07/28 [facility] CHEM PANEL CO2 23 24 - 32 07/28 [facility]2016 [facility] CHEM PANEL Chloride Lvl 109 95 - 109 07/28 [facility] CHEM PANEL Glucose Lvl 101 70 - 99 07/28 2016 [facility] CHEM PANEL Potassium 4.0 3.5 - 5.1 07/28 [facility] CHEM PANEL Sodium Lvl 141 135 - 145 07/28 [facility] CHEM PANEL AGAP 13.0 10.0 - 02 [place] 20.0 [facility] CHEM PANEL Calcium Lvl 7.7 8.5 - 10.5 07/28 [facility] CHEM PANEL Creatinine 2.49 0.50 - 07/28 [facility] Lvl 1.40 /2016 [facility] HEMATOLOGY PT 14.8 12.0 - 02 [place] 14.7 [facility] HEMATOLOGY PTT 40.8 22.9 - 02 [place] 35.8 /2016 [facility] HEMATOLOGY INR 1.14 0.85 - 02 [place] 1.17 [facility] IMMUNOLOGY C3 94 88 - 201 02 [facility] [employer] HEMATOLOGY Lymphocytes 1.7 1.0 - 5.5 07/28 [place] # /2016 [facility] HEMATOLOGY Segs-Bands # 2.7 1.5 - 8.1 07/[address] [facility] [facility] H[facility] Eosinophils 0.1 0.0 - 0.5 [place] /2016 [facility] HEMATOLOGY Monocytes # 0.7 0.0 - 0.8 07/28 [facility] HEMATOLOGY Segs 51.3 45.0 - 02 [place] 75.0 /2016 [facility] HEMATOLOGY Lymphocytes 31.6 20.0 - 02 [place] 40.0 /2016 [facility] HEMATOLOGY Monocytes 14.1 2.0 - 12.0 07/28 [facility] HEMATOLOGY Eosinophils 2.6 0.0 - 4.0 07/28 a s /2016 [facility] HEMATOLOGY Basophils 0.4 0.0 - 1.0 07/28 [facility] HEMATOLOGY PB Smear Peripheral 07/28 [facility] Path blood /2016 Medical smear Center shows hypochromi c normocytic anemia with anisopoiki locytsosis , no increase in schistocyt es, slight polychroma antonia, a few estella cells, moderate thrombocyt openia. Impression : (1) no evidence of microangio pathic hemolysis, (2) RBC morphology is suggestive of anemia of chronic disease or iron deficiency anemia, and renal disease. CPT: 87681 HEMATOLOGY Hct 29.3 36.0 - 07/28 [place] 48.0 [facility] HEMATOLOGY Hgb 9.2 12.0 - 07/28 16.0 [facility] HEMATOLOGY RBC 3.54 4.20 - 07/28 [place] 5.40 /2016 [facility] HEMATOLOGY WBC 5.3 3.7 - 10.4 07/28 [facility] HEMATOLOGY Platelet 87 133 - 450 07/28 [facility] HEMATOLOGY MCHC 31.4 32.0 - 02 36.0 /2016 [facility] HEMATOLOGY RDW 17.9 11.5 - 07/28 14.5 [facility] HEMATOLOGY MPV 10.9 7.4 - 10.4 07/28 [facility] HEMATOLOGY MCH 26.0 27.0 - 02 31.0 [facility] HEMATOLOGY MCV 82.8 80.0 - 07/28 [facility] 98.0 [facility] IMMUNOLOGY HIV. Negative Negative 07/28 [facility] *NA* /2016 Medical (07/28/16 4:35 AM) Center CARDIAC Total CK 190 12 - 191 07/27 [facility] CHEM PANEL Calcium Lvl 7.8 8.5 - 10.5 07/27 [facility] CHEM PANEL CO2 21 24 - 32 07/27 [facility] CHEM PANEL Sodium Lvl 140 135 - 145 07/27 [facility] CHEM PANEL Potassium 3.8 3.5 - 5.1 07/27 [facility] CHEM PANEL Chloride Lvl 106 95 - 109 07/27 [facility] CHEM PANEL Bili Total 0.4 0.2 - 1.3 07/27 [facility] CHEM PANEL Alk Phos 74 39 - 136 07/27 [facility] CHEM PANEL eGFR 19 07/27 [facility] Comment: The [facility] eGFR is Center calculated using the CKD-EPI [...] PANEL Total 5.2 6.4 - 8.4 07/27 [facility] CHEM PANEL ALT 822 0 - 65 07/27 [facility] CHEM PANEL AST 205 0 - 37 07/27 [facility] CHEM PANEL Albumin Lvl 1.8 3.5 - 5.0 07/27 [facility] CHEM PANEL BUN 54 7 - 22 07/27 [facility] CHEM PANEL Glucose Lvl 143 70 - 99 07/27 [facility] CHEM PANEL Creatinine 3.11 0.50 - 02 [facility] 1.40 [facility] CHEM PANEL B/C Ratio 17 6 - 25 07/27 [facility] CHEM PANEL AGAP 16.8 10.0 - 02 [place] 20.0 [facility] CHEM PANEL Globulin 3.4 2.7 - 4.2 07/[address] [place] [address] CHEM PANEL A/G Ratio 0.5 0.7 - 1.6 02/ [facility] CHEM PANEL Magnesium 2.0 1.8 - 2.4 02 [facility] Lvl [facility] CHEM PANEL Phosphorus 3.7 2.5 - 4.[address] [place] [address] HEMATOLOGY RDW 17.7 11.5 - 02 [place] 14.5 /2016 [facility] HEMATOLOGY MCHC 32.9 32.0 - 02/ [place] 36.0 [facility] HEMATOLOGY Hct 25.4 36.0 - 02/ [place] 48.0 [facility] HEMATOLOGY MCH 26.4 27.0 - 02 [place] 31.0 [facility] HEMATOLOGY MCV 80.3 80.0 - 02 [place] 98.0 [facility] HEMATOLOGY MPV 11.4 7.4 - 10.4 02 [facility] [address] [place] [address] HEMATOLOGY Platelet 74 133 - 450 02 [facility] HEMATOLOGY RBC 3.16 4.20 - 02 [place] 5.40 /2016 [facility] HEMATOLOGY WBC 5.3 3.7 - 10.4 02 [facility] HEMATOLOGY Hgb 8.4 12.0 - 02 [place] 16.0 [facility] HEMATOLOGY Monocytes 14.5 2.0 - 12.[address] [place] [address] HEMATOLOGY Lymphocytes 29.8 20.0 - 02 [place] 40.0 [facility] HEMATOLOGY Eosinophils 0.1 0.0 - 0.5 [place] # [facility] HEMATOLOGY Monocytes # 0.8 0.0 - 0.8 [place] [facility] HEMATOLOGY Segs-Bands # 2.9 1.5 - 8.1 02 as [facility] HEMATOLOGY Lymphocytes 1.6 1.0 - 5.5 02 [place] # /2016 [facility] HEMATOLOGY Basophils 0.4 0.0 - 1.0 02 [facility] [address] [place] [address] HEMATOLOGY Eosinophils 1.2 0.0 - 4.0 02/ [place] [facility] HEMATOLOGY Segs 54.1 45.0 - 02/ [place] 75.0 [facility] SPECIAL Hgb A1C 8.9 <=5.6 % 07/27 [facility] CHEMISTRY [facility] CARDIAC Total CK 344 12 - 191 07/26 [facility] ENZYMES [facility] IMMUNOLOGY IVETTE Positive Negative 07/26 *ABN* Medical (07/26/16 11:40 AM) Center IMMUNOLOGY CLINICAL OPERATIONS SPECIALIST Ab <0.2 <=0.9 AI 07/26 [facility] IMMUNOLOGY Sm Ab <0.2 <=0.9 AI 07/26 [facility] IMMUNOLOGY IVETTE Interp Pattern 07/26 appears [facility] Center IMMUNOLOGY SS-B ([place]) Ab <0.2 <=0.9 [place] 07/26 [place] [facility] IMMUNOLOGY SS-A (Ro) Ab <0.2 <=0.9 AI 07/26 [facility] s [facility] IMMUNOLOGY DNA Ab (DS) Negative Negative 07/[address] [facility]07[facility]26/16 11:40 AM[facility] Medica l Center IMMUNOLOGY IVETTE Titer 1:40 Negative 07/26 *ABN* Medical (07/26/16 11:40 AM) Center URINE CHEM U Sodium 21 07/26 [facility] HEMATOLOGY INR 1.11 0.85 - 07/26 [place] 1.17 [facility] HEMATOLOGY PT 14.5 12.0 - 07/26 [facility] 14.7 [facility] IMMUNOLOGY Hep A IgM Negative Negative 07/26 [place] *NA* [facility] (07/26/16 8:00 AM) Center IMMUNOLOGY Hep B Core Negative Negative 07/26 [facility] IgM *NA* Medical (07/26/16 8:00 AM) Center IMMUNOLOGY Hep C Ab Negative 07/26 [place] *NA* [facility] (07/26/16 8:00 AM) Center IMMUNOLOGY Hep Bs Ag Negative Negative 07/26 *NA* [facility] (07/26/16 8:00 AM) Center CHEM PANEL B/C Ratio 17 6 - 25 07/26 [facility] CHEM PANEL ALT 1232 0 - 65 07/26 [facility] CHEM PANEL A/G Ratio 0.5 0.7 - 1.6 07/26 [facility] CHEM PANEL Bili Total 0.3 0.2 - 1.3 07/26 [facility] CHEM PANEL Alk Phos 79 39 - 136 07/[address] CHEM PANEL AST 586 0 - 37 07/26 [facility] CHEM PANEL Total 5.5 6.4 - 8.4 07/26 [facility] Protein [facility] CHEM PANEL Globulin 3.7 2.7 - 4.2 07/[address] CHEM PANEL Albumin Lvl 1.8 3.5 - 5.0 07/26 [place] [facility] CHEM PANEL Magnesium 2.1 1.8 - 2.4 07/26 [facility] HEMATOLOGY Acanthocyte Slight 07/[address] HEMATOLOGY Rouleaux Present None Seen 07/26 [facility] (07/26/16 4:42 AM) [place] HEMATOLOGY Anisocyte 1+ None Seen 07/26 [facility] (07/26/16 4:42 AM) [place] HEMATOLOGY Basophils # 0.1 0.0 - 0.2 07/26 [facility] HEMATOLOGY Large Plt Moderate None [facility] (07/26/16 4:42 AM) [place] IMMUNOLOGY C4 42 16 - 47 07/26 [facility] URINE AND UA Sq Epi None Seen 07/[address] URINE AND UA Waxy Cast 1 <=0 /LPF 07/[address] URINE AND UA Hyal Cast 4 0 - 2 07/[address] URINE AND UA Bacteria Occasional None Seen 07[place] /HPF /HPF /2016 [facility] URINE AND UA Mucus Few /LPF None Seen 07/25 [place] STOOL /LPF /[address] [place] [address] URINE AND UA Amorph Occasional None Seen 07/[place] ST[place]iny /HPF /HPF /[address] [place] [address] URINE AND UA Leuk Est Negative Negative 07/25 [facility] STOOL (07/25/16 10:34 AM) [facility] [place] URINE AND UA Nitrite Negative Negative 07/25 [facility] (07/25/16 10:34 AM) /2016 [facility] URINE AND UA RBC 2 0 - 2 07/25 [facility] /[address] [place] [address] URINE AND UA WBC 6 0 - 5 07/[address] URINE AND UA 2.0 0.1 - 1.0 07/25 [facility] Urobilinogen /2016 [facility] URINE AND UA Ketones Negative Negative 07/25 [facility] STOOL mg/dL mg/dL [facility] URINE AND UA Glucose 70 mg/dL Negative 07/25 [facility] mg/dL [facility] URINE AND UA Blood Negative Negative 07/25 [facility] (07/25/16 10:34 AM) /2016 [facility] URINE AND UA Bili Negative Negative 07/25 [facility] STOOL *NA* [facility] (07/25/16 10:34 AM) [place] URINE AND UA Protein >=300 Negative 07/25 [facility] mg/dL mg/dL [facility] URINE AND UA Spec Grav 1.012 <=1.030 07/25 [facility] URINE AND UA pH 5.5 5.0 - 8.0 07/25 [facility] URINE AND UA Turbidity Slight Clear 07/25 [facility] *ABN* [facility] (07/25/16 10:34 AM) [place] URINE AND UA Color Dark Yellow Yellow 07/25 [facility] *NA* /2016 [facility] (07/25/16 10:34 AM) [place] URINE AND UA Gran Cast 9 07/25 [facility] URINE CHEM U Sodium 30 07/25 [facility] [address] [place] [address] URINE CHEM U Prot/Creat 3.1 07/25 [facility] [address] [place] [address] URINE CHEM U Protein 420.9 07/25 [facility] [address] [place] [address] URINE CHEM U Creatinine 136.00 07/25 [facility] [address] [place] [address] CHEM PANEL Magnesium 2.0 1.8 - 2.4 07/25 [place] Lvl [facility] CHEM PANEL Phosphorus 5.2 2.5 - 4.5 07/[address] [place] [address] CARDIAC Troponin-I 0.28 0.00 - 07/24 [facility] ENZYMES 0.40 /2016 [facility] CARDIAC Total CK 2616 12 - 191 07/24 [facility] ENZYMES /2016 [facility] CARDIAC Troponin-T 0.144 0.000 - 07/24 Result [facility] ENZYMES 0.100 /2016 Comment: Medical Critical Center Result(s) called to Jennifer Reardon at 07/24/2016 13:00 byMIA. Read back OK. CARDIAC CK MB Index 0.2 0.0 - 2.5 07/24 [facility] [place] ENZYMES /2016 [facility] CARDIAC CK MB 6.3 0.5 - 3.6 07/24 [place] ENZYMES /2016 Medical [place] CARDIAC Troponin-I 0.38 0.00 - 07/24 [place] ENZYMES 0.40 /2017 [facility] CARDIAC Troponin-T 0.173 0.000 - 07/24 Result [place] ENZYMES 0.100 /2016 Comment: Medical Critical Center Result(s) called to Nora Salcedo at 07/24/2016 07:48 byMIA. Read back OK. CARDIAC CK MB Index 0.2 0.0 - 2.5 07/24 [place] ENZYMES /2017 [facility] CARDIAC CK MB 5.6 0.5 - 3.6 07/24 [place] ENZYMES [facility] Center CHEM PANEL Phosphorus 5.5 2.5 - 4.5 07/24 [facility] CARDIAC BNP 701 <=100 07/24 [place] ENZYMES pg/mL /2016 [facility] CARDIAC Troponin-I 0.57 0.00 - 07/24 Result [place] ENZYMES 0.40 Comment: Medical Critical Center Result(s) called to Chriss Morales at 07/23/2016 23:25 by AC. Read back OK. CARDIAC BNP 526 <=100 06/15 [place] ENZYMES pg/mL [facility] CHEM PANEL Magnesium 2.1 1.8 - 2.4 06/15 Lv [facility] CHEM PANEL Glucose Lvl 117 70 - 99 06/15 [facility] CHEM PANEL BUN 41 7 - 22 06/15 [facility] CHEM PANEL Creatinine 2.00 0.50 - 06/15 [place] Lvl 1.40 [facility] CHEM PANEL Calcium Lvl 9.0 8.5 - 10.5 06/15 Baljinder as [facility] CHEM PANEL Chloride Lvl 102 95 - 109 06/15 [place] [facility] CHEM PANEL CO2 33 24 - 32 06/15 [facility] CHEM PANEL Sodium Lvl 144 135 - 145 06/15 [facility] CHEM PANEL Potassium 4.0 3.5 - 5.1 06/15 [place] Lvl [facility] CHEM PANEL eGFR 32 06/15 Result Comment: [...] AGAP 13.0 10.0 - 06/15 [place] 20.0 [facility] CHEM PANEL Phosphorus 4.6 2.5 - 4.5 06/15 [facility] HEMATOLOGY RBC 3.68 4.20 - 06/15 [place] 5.40 [facility] HEMATOLOGY Hgb 9.9 12.0 - 06/15 [place] 16.0 [facility] HEMATOLOGY MCH 26.8 27.0 - 06/15 [place] 31.0 [facility] HEMATOLOGY MCHC 34.2 32.0 - 06/15 [place] 36.0 [facility] HEMATOLOGY MCV 78.3 80.0 - 06/15 [place] 98.0 [facility] HEMATOLOGY Hct 28.8 36.0 - 06/15 [place] 48.0 [facility] HEMATOLOGY Platelet 191 133 - 450 06/15 [facility] HEMATOLOGY MPV 9.5 7.4 - 10.4 06/15 [facility] HEMATOLOGY RDW 15.3 11.5 - 06/15 [place] 14.5 [facility] HEMATOLOGY WBC 5.6 3.7 - 10.4 06/15 [facility] HEMATOLOGY Eosinophils 0.5 0.0 - 0.5 06/15 [place] # /2015 [facility] HEMATOLOGY Microcyte 1+ None Seen 06/15 [facility] *ABN* /2015 Medical (06/15/16 4:22 AM) Cente r HEMATOLOGY Basophils # 0.1 0.0 - 0.2 06/[place] /2015 [facility] HEMATOLOGY Lymphocytes 33.5 20.0 - 06/15 [place] 40.0 [facility] HEMATOLOGY Segs 47.6 45.0 - 06/15 [place] 75.0 [facility] HEMATOLOGY Monocytes 8.4 2.0 - 12.0 06/15 [facility] HEMATOLOGY Eosinophils 9.4 0.0 - 4.0 06/15 [facility] HEMATOLOGY Segs-Bands # 2.6 1.5 - 8.1 06/15 [facility] HEMATOLOGY Lymphocytes 1.9 1.0 - 5.5 06/15 a s [facility] HEMATOLOGY Basophils 1.1 0.0 - 1.0 06/15 [facility] HEMATOLOGY Monocytes # 0.5 0.0 - 0.8 06/15 [facility] CHEM PANEL Phosphorus 4.8 2.5 - 4.5 06/14 [facility] CHEM PANEL Magnesium 2.0 1.8 - 2.4 06/14 [facility] CHEM PANEL eGFR 32 06/14 [facility] Comment: The Medical eGFR is Center [...] Chloride Lvl 101 95 - 109 06/[address] [facility] CHEM PANEL Potassium 4.4 3.5 - 5.1 06/14 [facility] CHEM PANEL BUN 37 7 - 22 06/14 [facility] CHEM PANEL Glucose Lvl 119 70 - 99 06/14 [facility] CHEM PANEL Creatinine 2.00 0.50 - 06/14 [place] Lvl 1.40 Medical Center CHEM PANEL Sodium Lvl 142 135 - 145 06/14 [facility] CHEM PANEL Calcium Lvl 8.7 8.5 - 10.5 06/14 [facility] CHEM PANEL CO2 32 24 - 32 06/14 [facility] CHEM PANEL AGAP 13.4 10.0 - 06/14 [place] 20.0 [facility] HEMATOLOGY Eosinophils 10.3 0.0 - 4.0 06/14 [place] [facility] HEMATOLOGY Basophils # 0.1 0.0 - 0.2 06/14 a [facility] HEMATOLOGY Eosinophils 0.5 0.0 - 0.5 06/14 [place] # [facility] HEMATOLOGY Monocytes # 0.5 0.0 - 0.8 06/14 a [facility] HEMATOLOGY Segs-Bands # 2.1 1.5 - 8.1 06/14 [facility] HEMATOLOGY Basophils 1.2 0.0 - 1.0 06/14 [facility] HEMATOLOGY Lymphocytes 1.9 1.0 - 5.5 06/14 [place] # [facility] HEMATOLOGY Segs 42.5 45.0 - 06/14 [place] 75.0 [facility] HEMATOLOGY Lymphocytes 37.0 20.0 - 06/14 [place] 40.0 [facility] HEMATOLOGY Monocytes 9.0 2.0 - 12.0 06/14 [facility] HEMATOLOGY MPV 9.8 7.4 - 10.4 06/14 [facility] HEMATOLOGY WBC 5.0 3.7 - 10.4 06/14 [facility] HEMATOLOGY RBC 3.57 4.20 - 06/14 [place] 5.40 [facility] HEMATOLOGY Hgb 9.4 12.0 - 06/14 [place] 16.0 [facility] HEMATOLOGY Hct 28.5 36.0 - 06/14 [place] 48.0 [facility] HEMATOLOGY Platelet 183 133 - 450 06/14 [facility] HEMATOLOGY MCV 79.9 80.0 - 06/14 [place] 98.0 [facility] [place] HEMATOLOGY MCH 26.3 27.0 - 06/14 [place] 31.0 /2016 [facility] HEMATOLOGY MCHC 33.0 32.0 - 06/14 [place] 36.0 /2016 [facility] HEMATOLOGY RDW 15.9 11.5 - 06/14 [place] 14.5 [facility] URINE CHEM U Prot/Creat 6.9 06/13 /2015 [facility] URINE CHEM U Creatinine 19.30 06/13 /2015 [facility] URINE CHEM U Protein 133.1 06/13 /2015 [facility] HEMATOLOGY MPV 9.7 7.4 - 10.4 06/13 /2015 [facility] HEMATOLOGY Platelet 184 133 - 450 06/13 /2015 [facility] HEMATOLOGY RDW 15.9 11.5 - 06/13 [place] 14. [facility] HEMATOLOGY MCV 79.3 80.0 - 06/13 [place] 98.0 /2015 [facility] HEMATOLOGY MCHC 33.0 32.0 - 06/13 [place] 36.0 /2015 [facility] HEMATOLOGY MCH 26.2 27.0 - 06/13 [place] 31.0 /2016 [facility] HEMATOLOGY Hct 29.4 36.0 - 06/13 [place] 48.0 /2016 [facility] HEMATOLOGY Hgb 9.7 12.0 - 06/13 [place] 16.0 /2016 [facility] HEMATOLOGY RBC 3.70 4.20 - 06/13 [place] 5.40 /2016 [facility] HEMATOLOGY WBC 5.7 3.7 - 10.4 06/13 [facility] HEMATOLOGY Basophils # 0.1 0.0 - 0.2 06/13 [place] /2015 [facility] HEMATOLOGY Lymphocytes 2.2 1.0 - 5.5 06/13 [place] # /2016 [facility] HEMATOLOGY Eosinophils 0.5 0.0 - 0.5 06/13 [place] # /2015 [facility] HEMATOLOGY Monocytes # 0.5 0.0 - 0.8 06/13 [place] /2015 [facility] HEMATOLOGY Basophils 1.1 0.0 - 1.0 06/13 [facility] HEMATOLOGY Segs-Bands # 2.3 1.5 - 8.1 06/13 Baljinder as /2015 [facility] HEMATOLOGY Eosinophils 9.5 0.0 - 4.0 06/13 [place] /2016 [facility] HEMATOLOGY Monocytes 9.0 2.0 - 12.0 06/13 [facility] HEMATOLOGY Lymphocytes 38.9 20.0 - 06/13 [place] 40.0 /2015 [facility] HEMATOLOGY Segs 41.5 45.0 - 12 [facility] 75.0 [facility] CHEM PANEL Magnesium 1.7 1.8 - 2.4 06/13 [facility] CHEM PANEL Phosphorus 4.2 2.5 - 4.5 06/13 [facility] ELECTROLYT AGAP 14.3 10.0 - 06/13 [facility] ES 20.0 [facility] ELECTROLYT eGFR 41 06/13 Result [facility] Comment: The [facility] eGFR is Center calculated using the CKD-EPI [...] 103 95 - 109 06/13 [place] [facility] ELECTROLYT Calcium Lvl 8.5 8.5 - 10.5 06/13 Baljinder as [facility] ELECTROLYT CO2 32 24 - 32 06/13 [facility] ELECTROLYT Glucose Lvl 173 70 - 99 06/13 [facility] ELECTROLYT BUN 37 7 - 22 06/13 [facility] ELECTROLYT Creatinine 1.63 0.50 - 06/13 [facility] Lvl 1.40 [facility] ELECTROLYT Potassium 4.3 3.5 - 5.1 06/13 [facility] Lvl [facility] ELECTROLYT Sodium Lvl 145 135 - 145 06/13 [facility] CHEM PANEL Ammonia 48.0 <=45.0 06/11 [facility] uMol/L [facility] IMMUNOLOGY IVETTE Interp Pattern 06/11 [place] [facility] [place] IMMUNOLOGY IVETTE Titer 1:40 Negative 06/11 [place] [...] r IMMUNOLOGY HIV Ag/Ab Negative Negative 06/11 [facility] 4th Gen *NA* Medical (06/11/16 8:56 AM) Cente r IMMUNOLOGY IVETTE Positive Negative 06/11 [place] *ABN* Medical (06/11/16 8:56 AM) Cente r CHEM PANEL Bili Total 0.1 0.2 - 1.3 06/11 [facility] CHEM PANEL Total 5.2 6.4 - 8.4 06/11 [facility] CHEM PANEL Albumin Lvl 1.6 3.5 - 5.0 06/11 [place] [facility] CHEM PANEL B/C Ratio 20 6 - 25 06/11 [facility] CHEM PANEL Globulin 3.6 2.7 - 4.2 06/11 [facility] CHEM PANEL A/G Ratio 0.4 0.7 - 1.6 06/11 [facility] CHEM PANEL Alk Phos 74 39 - 136 06/11 [facility] CHEM PANEL ALT 14 0 - 65 06/11 [facility] CHEM PANEL AST 13 0 - 37 06/11 [facility] HEMATOLOGY INR 1.06 0.85 - 06/11 [place] 1.17 /2015 [facility] HEMATOLOGY PT 14.0 12.0 - 06/11 [place] 14.7 /2016 [facility] HEMATOLOGY PTT 36.4 22.9 - 06/11 [place] 35.8 /2016 [facility] SPECIAL Hgb A1C 10.5 <=5.6 % 06/11 [place] CHEMISTRY /2015 [facility] CARDIAC CK MB Index 1.8 0.0 - 2.5 06/11 [place] ENZYMES /2015 [facility] CARDIAC CK MB 2.9 0.5 - 3.6 06/11 [place] ENZYMES [facility] CARDIAC Troponin-T 0.061 0.000 - 06/11 [place] ENZYMES 0.100 /2015 [facility] CARDIAC Total CK 159 12 - 191 06/11 [facility] ENZYMES [facility] CARDIAC Troponin-I <0.02 0.00 - 06/11 [place] ENZYMES 0.40 [facility] CHEM PANEL Bili Total 0.2 0.2 - 1.3 06/11 [facility] CHEM PANEL Bili Direct 0.1 0.0 - 0.3 06/11 [place] [facility] CHEM PANEL Bili 0.1 0.0 - 1.0 06/11 Indirect [facility] CHEM PANEL Total 5.7 6.4 - 8.4 06/11 Protein [facility] CHEM PANEL A/G Ratio 0.5 0.7 - 1.6 06/11 [facility] CHEM PANEL Albumin Lvl 1.8 3.5 - 5.0 06[place]11 [place] [facility] CHEM PANEL Globulin 3.9 2.7 - 4.2 06/11 [facility] CHEM PANEL Alk Phos 99 39 - 136 06/11 [facility] CHEM PANEL AST 21 0 - 37 06/11 [facility] CHEM PANEL ALT 17 0 - 65 06/11 [facility] DRUG UDS Note See Note 06/11 [place] [...] r DRUG U Benzodia Negative Negative 06/11 [facility] SCREEN Scr *NA* Medical (06/10/16 8:08 PM) Cente r DRUG U Cocaine Negative Negative 06/11 [facility] SCREEN Scr *NA* Medical (06/10/16 8:08 PM) Cente r LIPIDS LDL 75 <=99 mg/dL 06/11 [facility] (Calculated) [facility] LIPIDS VLDL 27 06/11 [facility] LIPIDS Chol 133 <=199 06/11 [facility] mg/dL [facility] LIPIDS Trig 133 <=149 06/11 [facility] mg/dL /2015 [facility] LIPIDS CHD Risk 4.29 3.90 - 06/11 [facility] 5.80 [facility] LIPIDS HDL 31 >=61 mg/dL 06/11 [facility] URINE AND UA <=1.0 0.1 - 1.0 06/11 [facility] STOOL Urobilinogen mg/dL /2015 [facility] URINE AND UA Ketones Negative Negative 06/11 [facility] STOOL mg/dL mg/dL /2015 [facility] URINE AND UA Glucose 300 mg/dL Negative 06/11 [facility] STOOL mg/dL /2015 [facility] URINE AND UA Protein >=300 Negative 06/11 [facility] STOOL mg/dL mg/dL /2015 [facility] URINE AND UA pH 6.0 5.0 - 8.0 06/11 [facility] STOOL /2015 [facility] [place] URINE AND UA Nitrite Negative Negative 06/11 [facility] STOOL (06/10/16 8:08 PM) /2016 [facility] URINE AND UA Blood Trace Negative 06/11 [facility] STOOL *ABN* Medical (06/10/16 8:08 PM) Cente r URINE AND UA Bili Negative Negative 06/11 [facility] STOOL *NA* Medical (06/10/16 8:08 PM) Cente r URINE AND UA Mucus Few /LPF None Seen 06/11 [facility] STOOL /LPF /2015 [facility] URINE AND UA RBC 4 0 - 2 06/11 [facility] URINE AND UA Sq Epi Few /LPF Few /LPF 06/11 [facility] URINE AND UA WBC 5 0 - 5 06/11 [facility] URINE AND UA Leuk Est Small Negative 06/11 [facility] STOOL *ABN* /2015 [facility] (06/10/16 8:08 PM) Cente r URINE AND UA Hyal Cast 1 0 - [address] 06/[address] [facility] URINE AND UA Spec Grav 1.009 <=1.030 06/11 [facility] URINE AND UA Color Yellow Yellow 06/11 [facility] *NA* /2015 [facility] (06/10/16 8:08 PM) Cente r URINE AND UA Turbidity Clear Clear 06/11 [facility] (06/10/16 8:08 PM) [facility] URINE CHEM U Preg Negative Negative 06/11 [facility] (06/10/16 8:08 PM) [facility] URINE CHEM U Protein 375.4 06/11 [facility] URINE CHEM U Prot/Creat 5.4 06/11 [facility] URINE CHEM U Creatinine 69.80 06/11 [facility] CARDIAC BNP 1135 <=100 06/10 [facility] ENZYMES pg/mL [facility] CARDIAC Troponin-I <0.02 0.00 - 06/10 [facility] ENZYMES 0.40 [facility] CHEM PANEL Lactic Acid 0.9 0.5 - 2.2 06/26 [place] [facility] TOXICOLOGY Valproic 10 50 - 100 06/26 [facility] Acid Lvl [facility] ENDOCRINOL hCG Tot 1 06/26 <sup>3</sup>I [place] [...] Albumin Lvl 3.2 3.5 - 5.0 06/[address] CHEM PANEL Total 6.6 6.4 - 8.4 06/[address] CHEM PANEL Bili Total 0.6 0.2 - 1.3 06/[address] CHEM PANEL Alk Phos 59 39 - 136 06/[address] CHEM PANEL AST 11 0 - 37 06/[address] CHEM PANEL ALT 17 0 - 65 06/[address] CHEM PANEL eGFR 99 06/26 <sup>1</sup>R [facility] Medical Comment: The [place] eGFR is calculated using the CKD-EPI formula. [...] values reflect the clinical guidelines
of the [place] [employer]. CHEM PANEL Potassium 3.4 3.5 - 5.1 06/26 [facility] CHEM PANEL BUN 11 7 - 22 06/26 [facility] CHEM PANEL Creatinine 0.8 0.5 - 1.4 06/26 [facility] CHEM PANEL Sodium Lvl 134 135 - 145 06/[address] CHEM PANEL Chloride Lvl 94 95 - 109 06/26 [facility] CHEM PANEL Calcium Lvl 9.1 8.5 - 10.5 06/[address] [facility] CHEM PANEL CO2 24 24 - 32 06/[address] CHEM PANEL A/G Ratio 0.9 0.7 - 1.6 06/26 [facility] CHEM PANEL Globulin 3.4 2.0 - 4.0 06/[address] CHEM PANEL B/C Ratio 14 6 - 25 06/[address] CHEM PANEL AGAP 19.4 10.0 - 06/26 [facility] 20.0 [facility] CHEM PANEL Lipase Lvl 81 73 - 393 06/26 [facility] HEMATOLOGY Large Plt Slight 06/26 [facility] HEMATOLOGY Basophils # 0.0 0.0 - 0.2 06/26 [facility] HEMATOLOGY Anisocyte 1+ None Seen 06/26 [facility] *ABN* [facility] (06/26/14 5:21 AM) [place] HEMATOLOGY Monocytes # 0.6 0.0 - 0.8 06/26 [facility] HEMATOLOGY Eosinophils 0.1 0.0 - 0.5 06/26 [facility] s # [facility] HEMATOLOGY Lymphocytes 2.5 1.0 - 5.5 06/26 [place] # /2014 [facility] HEMATOLOGY Segs 63.3 45.0 - 06/26 [place] 75.0 /2014 [facility] HEMATOLOGY Segs-Bands # 5.6 1.5 - 8.1 06/26 Baljinder as /2014 [facility] HEMATOLOGY Basophils 0.0 0.0 - 1.0 06/26 [facility] HEMATOLOGY Eosinophils 0.9 0.0 - 4.0 06/26 s /2014 [facility] HEMATOLOGY Monocytes 7.0 2.0 - 12.0 06/26 [facility] HEMATOLOGY Lymphocytes 28.8 20.0 - 06/26 [place] 40.0 /2014 [facility] HEMATOLOGY WBC 8.8 3.7 - 10.4 06/26 [facility] HEMATOLOGY RBC 5.19 4.20 - 06/26 5.40 /2014 [facility] HEMATOLOGY Hgb 14.4 12.0 - 06/26 16.0 /2014 [facility] HEMATOLOGY Hct 43.1 36.0 - 06/26 48.0 /2014 [facility] HEMATOLOGY MCV 83.1 80.0 - 06/26 98.0 /2014 [facility] HEMATOLOGY MCH 27.8 27.0 - 06/26 31.0 /2014 [facility] HEMATOLOGY RDW 13.1 11.5 - 06/26 14.5 /2014 [facility] HEMATOLOGY MCHC 33.5 32.0 - 06/26 36.0 /2014 [facility] HEMATOLOGY Platelet 201 133 - 450 06/26 [facility] HEMATOLOGY MPV 10.4 7.4 - 10.4 06/26 [facility] URINALYSIS UA [place] Yeast Occasional None Seen 04/15 ABN /HPF [facility] URINALYSIS UA Mucus Few /LPF None Seen 04/15 Normal [facility] URINALYSIS UA Sq Epi Moderate Few 04/15 ABN /LPF /2012 [facility] URINALYSIS Micro? Performed 04/15 Normal (04/14/2013 23:48:55) /2012 [facility] URINALYSIS UA WBC 0-2 /HPF None Seen 04/15 Normal [facility] URINALYSIS UA Bacteria Occasional None Seen 04/15 Normal /HPF [facility] URINALYSIS UA Glucose 500 mg/dL Negative 04/15 ABN [facility] URINALYSIS UA Bili Negative Negative 04/15 MH *NA* [facility] (04/14/2013 23:48:55) URINALYSIS UA Ketones Trace Negative 04/15 ABN *ABN* [facility] (04/14/2013 23:48:55) URINALYSIS UA Blood Negative Negative 04/15 Normal (04/14/2013 23:48:55) [facility] URINALYSIS UA 0.2 0.1 - 1.0 04/15 Normal Urobilinogen [facility] URINALYSIS UA Nitrite Negative Negative 04/15 Normal (04/14/2013 23:48:55) [facility] URINALYSIS UA Leuk Est Negative Negative 04/15 Normal (04/14/2013 23:48:55) [facility] URINALYSIS UA Turbidity Clear Clear 04/15 Normal (04/14/2013 23:48:55) [facility] URINALYSIS UA Color Yellow Yellow 04/15 *NA* [facility] (04/14/2013 23:48:55) URINALYSIS UA pH 7.0 5.0 - 8.0 04/15 Normal [facility] URINALYSIS UA Spec Grav 1.025 <=1.030 04/15 Normal [facility] URINALYSIS UA Protein Trace Negative 04/15 ABN *ABN* [facility] (04/14/2013 23:48:55) CHEMISTRY S Preg Negative Negative 04/15 *NA* [facility] (04/14/2013 23:28:00) CHEMISTRY Lipase Lvl 233 73 - 393 04/15 Normal [facility] CHEMISTRY Globulin 4.1 2.0 - 4.0 04/15 HI [facility] CHEMISTRY AGAP 10.5 10.0 - 04/15 Normal 20.0 [facility] CHEMISTRY B/C Ratio 6 6 - 25 04/15 Normal [facility] CHEMISTRY A/G Ratio 0.7 0.7 - 1.6 04/15 Normal [facility] CHEMISTRY eGFR 130 04/15 <sup>1</sup>R esult [facility] Comment: The eGFR is calculated [...] Lvl 2.9 3.5 - 5.0 04/15 LOW [facility] CHEMISTRY ASPARTATE 20 0 - 37 04/15 Normal TRANSAMINASE [facility] CHEMISTRY Bili Total 0.5 0.2 - 1.3 04/15 Normal [facility] CHEMISTRY Alk Phos 89 39 - 136 04/15 Normal [facility] CHEMISTRY ALANINE 11 0 - 65 04/15 AMINOTRANS [facility] RAS CHEMISTRY Creatinine 0.5 0.5 - 1.4 04/15 Normal [facility] CHEMISTRY BUN 3 7 - 22 04/15 LOW [facility] CHEMISTRY Glucose Lvl 255 70 - 99 04/15 [place] <sup>2</sup>I nterpretive [facility] Data: Adult reference range values reflect the clinical guidelines
of the [place] [employer]. CHEMISTRY Total 7.0 6.4 - 8.4 04/15 Normal Protein [facility] CHEMISTRY Calcium Lvl 8.7 8.5 - 10.5 04/15 Normal [facility] CHEMISTRY CO2 29 24 - 32 04/15 Normal [facility] CHEMISTRY Chloride Lvl 104 95 - 109 04/15 Normal [facility] CHEMISTRY Potassium 3.5 3.5 - 5.1 04/15 Normal l [facility] CHEMISTRY Sodium Lvl 140 135 - 145 04/15 Normal [facility] HEMATOLOGY PROTIME 12.1 12.0 - 04/15 Normal 14.7 [facility] HEMATOLOGY aPTT 39.0 22.9 - 04/15 [place] <sup>4</sup>I 35.8 nterpretive [facility] Data: Heparin Therapeutic Range: 57 - 92 Seconds HEMATOLOGY INR 0.90 0.85 - 04/15 Normal <sup>3</sup>I MH 1.17 nterpretive [facility] Data: RECOMMENDED RANGES FOR PROTIME INR:
2.0-3.0 for most medical and surgical thromboemboli c states.
2.5-3.5 for artificial heart valves and recurrent embolism.<br/ >
INR SHOULD BE USED ONLY FOR PATIENTS ON STABLE ANTICOAGULANT THERAPY. HEMATOLOGY MCH 29.4 27.0 - 04/15 Normal MH 31.0 /2012 [facility] HEMATOLOGY MCV 86.1 81.0 - 04/15 Normal MH 99.0 /2012 [facility] HEMATOLOGY Hct 29.4 36.0 - 04/15 LOW MH 48.0 /2012 [facility] HEMATOLOGY RDW 14.0 11.5 - 04/15 Normal MH 14.5 [facility] HEMATOLOGY WBC X 10x3 6.2 3.7 - 10.4 04/15 Normal /2012 [facility] HEMATOLOGY Platelet 178 133 - 450 04/15 Normal [facility] HEMATOLOGY MCHC 34.1 32.0 - 04/15 Normal 36.0 [facility] HEMATOLOGY RBC X 10x6 3.41 4.20 - 04/15 LOW MH 5.40 /2012 [facility] HEMATOLOGY Hgb 10.0 12.0 - 04/15 LOW 16.0 /2012 [facility] HEMATOLOGY MPV 10.1 7.4 - 10.4 04/15 Normal [facility] HEMATOLOGY Segs-Bands # 4.4 1.5 - 8.1 04/15 Normal [facility] HEMATOLOGY Basophils 0.7 0.0 - 1.0 04/15 Normal [facility] HEMATOLOGY Segs 70.7 45.0 - 04/15 Normal 75.0 [facility] HEMATOLOGY Monocytes # 0.3 0.0 - 0.8 04/15 Normal [facility] HEMATOLOGY Lymphocytes 1.2 1.0 - 5.5 04/15 Normal MH # /2012 [facility] HEMATOLOGY Monocytes 4.5 2.0 - 12.0 04/15 Normal /2012 [facility] HEMATOLOGY Eosinophils 4.1 0.0 - 4.0 04/15 HI MH /2012 [facility] HEMATOLOGY Lymphocytes 20.0 20.0 - 04/15 Normal 40.0 [facility] HEMATOLOGY Basophils # 0.0 0.0 - 0.2 04/15 Normal /2012 [facility] HEMATOLOGY Eosinophils 0.3 0.0 - 0.5 04/15 Normal MH # /2012 [facility] BEDSIDE Gluc POC 260 70 - 99 03/15 [place] <sup>1</sup>I GLUCOSE Lifscn /2011 nterpretive [facility] TESTING Data: Upper Reportable Limit: 200 mg/dL. BEDSIDE Comment1 Notify 03/15 NA GLUCOSE RN/MD /2011 [facility] TESTING URINALYSIS UA Protein Trace Negative 03/14 [facility] *ABN* /2011 [facility] (03/14/2012 18:40:00) URINALYSIS UA pH 6.0 5.0 - 8.0 03/14 Normal /2011 [facility] URINALYSIS UA Ketones >=80 mg/dL Negative 03/14 NA *NA* /2011 [facility] (03/14/2012 18:40:00) URINALYSIS UA Glucose >=1000 mg/dL Negative 03/14 [facility] *ABN* [facility] (03/14/2012 18:40:00) URINALYSIS UA Blood Negative Negative 03/14 Normal (03/14/2012 18:40:00) [facility] URINALYSIS UA Nitrite Negative Negative 03/14 Normal (03/14/2012 18:40:00) [facility] URINALYSIS UA 0.2 0.1 - 1.0 03/14 Normal Urobilinogen /2011 [facility] URINALYSIS UA Leuk Est Negative Negative 03/14 Normal (03/14/2012 18:40:00) [facility] URINALYSIS UA Bili Negative Negative 03/14 [facility] *NA* [facility] (03/14/2012 18:40:00) URINALYSIS UA Turbidity Clear Clear 03/14 Normal (03/14/2012 18:40:00) [facility] URINALYSIS UA Color Yellow Yellow 03/14 NA *NA* /2011 [facility] (03/14/2012 18:40:00) URINALYSIS UA Spec Grav >=1.030 <=1.030 03/14 [facility] *ABN* [facility] (03/14/2012 18:40:00) URINALYSIS UA Sq Epi Occasional /LPF Few 03/14 Normal (03/14/2012 18:40:00) [facility] URINALYSIS UA WBC 3-5 /HPF None Seen 03/14 Normal (03/14/2012 18:40:00) /2012 [facility] URINALYSIS UA Bacteria Occasional /HPF None Seen 03/14 Normal (03/14/2012 18:40:00) [facility] CHEMISTRY S Preg Negative Negative 03/14 NA MH *NA* /2011 [facility] (03/14/2012 17:50:00) CHEMISTRY Lipase Lvl 45 73 - 393 03/14 LOW /2011 [facility] CHEMISTRY A/G Ratio 1.2 0.7 - 1.6 03/14 Normal [facility] CHEMISTRY Globulin 3.8 2.0 - 4.0 03/14 Normal [facility] CHEMISTRY B/C Ratio 21 6 - 25 03/14 Normal [facility] CHEMISTRY AGAP 16.8 10.0 - 03/14 Normal MH 20.0 [facility] CHEMISTRY Bili Total 1.1 0.2 - 1.3 03/14 Normal [facility] CHEMISTRY Total 8.2 6.4 - 8.4 03/14 Normal [facility] CHEMISTRY Potassium 3.8 3.5 - 5.1 03/14 Normal [facility] CHEMISTRY Creatinine 0.7 0.5 - 1.4 03/14 Normal Lvl [facility] CHEMISTRY Sodium Lvl 139 135 - 145 03/14 Normal [facility] CHEMISTRY Chloride Lvl 99 95 - 109 03/14 Normal [facility] CHEMISTRY CO2 27 24 - 32 03/14 Normal [facility] CHEMISTRY Glucose Lvl 301 70 - 99 03/14 HI <sup>2</sup>I nterpretive [facility] Data: Adult reference range values reflect the clinical guidelines
of the [place] [employer]. CHEMISTRY BUN 15 7 - 22 03/14 Normal [facility] CHEMISTRY ALT 24 0 - 65 03/14 Normal [facility] CHEMISTRY AST 20 0 - 37 03/14 Normal [facility] CHEMISTRY Alk Phos 67 39 - 136 03/14 Normal [facility] CHEMISTRY Albumin Lvl 4.4 3.5 - 5.0 03/14 Normal [facility] CHEMISTRY Calcium Lvl 9.9 8.5 - 10.5 03/14 Normal [facility] HEMATOLOGY MPV 11.8 7.4 - 10.4 03/14 HI /2011 [facility] HEMATOLOGY MCHC 35.9 32.0 - 03/14 Normal MH 36.0 /2011 [facility] HEMATOLOGY MCH 31.2 27.0 - 0924 HI MH 31.0 /2011 [facility] HEMATOLOGY Platelet 189 133 - 450 03/14 Normal MH /2011 [facility] HEMATOLOGY RDW 13.1 11.5 - 03/14 Normal MH 14.5 /2011 [facility] HEMATOLOGY Hct 40.7 36.0 - 03/14 Normal MH 48.0 /2011 [facility] HEMATOLOGY Hgb 14.6 12.0 - 03/14 Normal MH 16.0 /2011 [facility] HEMATOLOGY MCV 87.0 81.0 - 03/14 Normal 99.0 /2011 [facility] HEMATOLOGY WBC 11.7 3.7 - 10.4 03/14 HI MH /2011 [facility] HEMATOLOGY RBC 4.68 4.20 - 03/14 Normal MH 5.40 /2011 [facility] HEMATOLOGY Basophils # 0.0 0.0 - 0.2 03/14 Normal MH /2011 [facility] HEMATOLOGY Basophils 0.2 0.0 - 1.0 03/14 Normal MH /2011 [facility] HEMATOLOGY Eosinophils 0.0 0.0 - 0.5 03/14 Normal MH # /2011 [facility] HEMATOLOGY Monocytes # 0.4 0.0 - 0.8 03/14 Normal MH /2011 [facility] HEMATOLOGY Segs-Bands # 10.6 1.5 - 8.1 03/14 HI MH /2011 [facility] HEMATOLOGY Lymphocytes 0.7 1.0 - 5.5 03/14 LOW MH # /2011 [facility] HEMATOLOGY Monocytes 3.4 2.0 - 12.0 03/14 Normal MH /2011 [facility] HEMATOLOGY Plt Morph Normal 03/14 Normal (03/14/2012 17:50:00) /2011 [facility] HEMATOLOGY Lymphocytes 6.0 20.0 - 03/14 LOW 40.0 /2011 [facility] HEMATOLOGY Eosinophils 0.0 0.0 - 4.0 03/14 Normal MH /2011 [facility] HEMATOLOGY Segs 90.4 45.0 - 03/14 HI MH 75.0 /2011 [facility] HEMATOLOGY RBC Morph Normal 03/14 Normal (03/14/2012 17:50:00) /2011 [facility] BEDSIDE Gluc POC 167 70 - 99 11/29 [place] <sup>1</sup>I [facility] GLUCOSE Lifscn /2011 nterpretive Medical TESTING Data: Center Upper Reportable Limit: 200 mg/dL. BEDSIDE Comment1 Notify 11/29 NA [facility] GLUCOSE RN/MD /2011 Medical TESTING Center BEDSIDE Comment2 Sliding 11/29 NA [facility] GLUCOSE Scale /2011 Medical TESTING Center BEDSIDE Gluc POC 189 70 - 99 11/29 [place] <sup>2</sup>I [facility] GLUCOSE Lifscn /2011 nterpretive Medical TESTING Data: Center Upper Reportable Limit: 200 mg/dL. BEDSIDE Comment1 Notify 11/29 NA [facility] GLUCOSE RN/ /2011 Medical TESTING Center BEDSIDE Comment2 Sliding 11/29 NA [facility] GLUCOSE Scale /2011 Medical TESTING Center BEDSIDE Comment2 Sliding 11/29 NA [facility] GLUCOSE Scale /2011 Medical TESTING Center BEDSIDE Gluc POC 110 70 - 99 11/29 [place] <sup>3</sup>I [facility] GLUCOSE Lifscn /2011 nterpretive Medical TESTING Data: Center Upper Reportable Limit: 200 mg/dL. BEDSIDE Comment1 Notify 11/29 NA [facility] GLUCOSE RN/ /2011 Medical TESTING Center CHEMISTRY U Preg Negative Negative 11/28 Normal [facility] (11/28/2011 19:00:00) Mn dical Center URINALYSIS Micro? Performed 11/28 Normal [facility] (11/28/2011 19:00:00) Mn dical Center URINALYSIS UA Sq Epi Occasional /LPF Few 11/28 Normal [facility] (11/28/2011 19:00:00) Mn dical Center URINALYSIS UA RBC None Seen 0 - 2 11/28 Normal [facility] (11/28/2011 19:00:00) Mn dical Center URINALYSIS UA WBC Occasional 0 - 5 11/28 NA [facility] Center URINALYSIS UA Protein Negative mg/dL Negative 11/28 Normal [facility] (11/28/2011 19:00:00) Mn dical Center URINALYSIS UA pH 7.0 5.0 - 8.0 11/28 Normal [facility] Center URINALYSIS UA Spec Grav 1.020 <=1.030 11/28 Normal Medical Center URINALYSIS UA Turbidity Clear Clear 11/28 Normal [facility] (11/28/2011 19:00:00) Mn dical Center URINALYSIS UA Color Yellow Yellow 11/28 NA [facility] *NA* /2011 Medical (11/28/2011 19:00:00) Ce nter URINALYSIS UA 0.2 0.1 - 1.0 11/28 Normal [facility] Urobilinogen /2011 Medical Center URINALYSIS UA Blood Negative Negative 11/28 Normal [facility] (11/28/2011 19:00:00) Mn dical Center URINALYSIS UA Bili Negative Negative 11/28 NA [place] *NA* Medical (11/28/2011 19:00:00) Ce nter URINALYSIS UA Ketones >=80 mg/dL Negative 11/28 ABN MH Baljinder as *ABN* Medical (11/28/2011 19:00:00) Ce nter URINALYSIS UA Glucose >=1000 mg/dL Negative 11/28 ABN [place] *ABN* Medical (11/28/2011 19:00:00) Ce nter URINALYSIS UA Nitrite Negative Negative 11/28 Normal [facility] (11/28/2011 19:00:00) Mn dical Center URINALYSIS UA Leuk Est Negative Negative 11/28 [place] (11/[place] 19:00:00) Mn dical Center CHEMISTRY pO2 [place] 60 20 - 49 11/27 [facility] Medical Center CHEMISTRY pCO2 [place] 41 38 - 52 11/27 Normal Medical Center CHEMISTRY pH [place] 7.45 7.28 - 11/27 [facility] 7.42 Medical Center CHEMISTRY Temp [place] 37.0 11/27 NA Medical Center CHEMISTRY O2 Sat [place] 92.0 40.0 - 11/27 [facility] 70.0 Medical Center CHEMISTRY BE [place] 4 -2-2 - 2 11/27 [facility] Medical Center CHEMISTRY HCO3 [place] 28.5 22.0 - 11/27 [facility] [place] 26.0 Medical Center CHEMISTRY Lactic Acid 1.6 0.5 - 2.2 11/27 Normal [facility] Center CHEMISTRY Lipase Lvl 125 73 - 393 11/27 Normal Medical Center CHEMISTRY Albumin Lvl 4.2 3.5 - 5.0 11/27 Normal Medical Center CHEMISTRY CO2 23 24 - 32 11/27 LOW Medical Center CHEMISTRY Chloride Lvl 98 95 - 109 11/27 Normal Medical Center CHEMISTRY Potassium 3.8 3.5 - 5.1 11/27 Normal [facility] CHEMISTRY Sodium Lvl 138 135 - 145 11/27 Normal Medical Center CHEMISTRY Creatinine 0.7 0.5 - 1.4 11/27 Normal [facility] Lvl Medical Center CHEMISTRY BUN 9 7 - 22 11/27 Normal Medical Center CHEMISTRY Glucose Lvl 269 70 - 99 11/27 HI <sup>4</sup>I T ex nterpretive Medical Data: Adult Center reference range values reflect the clinical guidelines of the [place] [employer]. CHEMISTRY B/C Ratio 13 6 - 25 11/27 Normal [facility] CHEMISTRY AGAP 20.8 10.0 - 11/27 HI [place] 20.0 Medical Center CHEMISTRY Calcium Lvl 9.3 8.5 - 10.5 11/[address] [facility] CHEMISTRY Total 6.7 6.4 - 8.4 11/27 Normal [facility] Protein [facility] CHEMISTRY A/G Ratio 1.7 0.7 - 1.6 11/27 [facility] CHEMISTRY Globulin 2.5 2.0 - 4.0 11/27 Normal [facility] CHEMISTRY AST 18 0 - 37 11/27 Normal [facility] CHEMISTRY Alk Phos 62 39 - 136 11/27 Normal [facility] CHEMISTRY ALT 32 0 - 65 11/27 Normal [facility] CHEMISTRY Bili Total 0.7 0.2 - 1.3 11/27 Normal [facility] HEMATOLOGY Anisocyte 1+ None Seen 11/27 [facility] ABN Medical (11/28/2011 15:00:00) Ce nter HEMATOLOGY Monocytes # 0.1 0.0 - 0.8 11/27 [place] [facility] HEMATOLOGY Eosinophils 0.0 0.0 - 0.5 11/[address] [facility] HEMATOLOGY Basophils # 0.0 0.0 - 0.2 11/[address] [facility] HEMATOLOGY Neut Vac Slight None Seen 11/27 [facility] ABN Medical (11/28/2011 15:00:00) Ce nter HEMATOLOGY Large Plt Slight [facility] 15[facility]00:00[facility] Ce nter HEMATOLOGY Segs-Bands # 5.7 1.5 - 8.1 11/27 Normal [facility] HEMATOLOGY Lymphocytes 0.8 1.0 - 5.5 11/27 [place] # /2011 [facility] HEMATOLOGY Eosinophils 0.2 0.0 - 4.0 11/27 [place]2011 [facility] HEMATOLOGY Basophils 0.0 0.0 - 1.0 11/27 Normal /2011 [facility] HEMATOLOGY Monocytes 1.9 2.0 - 12.0 06 LOW /2011 [facility] HEMATOLOGY Segs 86.2 45.0 - 11/27 [facility] [place] 75.0 /2011 Medical [place] HEMATOLOGY Lymphocytes 11.7 20.0 - 11/27 LOW [place] 40.0 /2011 [facility] HEMATOLOGY MPV 10.8 7.4 - 10.4 11/27 [facility] HEMATOLOGY Platelet 161 133 - 450 11/27 Normal [facility] HEMATOLOGY MCHC 35.6 32.0 - 11/27 [facility] [place] 36.0 /2011 [facility] HEMATOLOGY RDW 12.4 11.5 - 11/27 Normal [place] 14.5 /2011 [facility] HEMATOLOGY MCH 30.7 27.0 - 11/27 Normal [place] 31.0 /2011 [facility] HEMATOLOGY MCV 86.1 81.0 - 11/27 Normal [place] 99.0 /2011 [facility] HEMATOLOGY Hct 33.6 36.0 - 11/27 LOW [place] 48.0 /2011 [facility] HEMATOLOGY Hgb 12.0 12.0 - 11/27 [facility] [place] 16.0 /2011 [facility] HEMATOLOGY RBC 3.90 4.20 - 11/27 [facility] [place] 5.40 /2011 [facility] HEMATOLOGY WBC 6.6 3.7 - 10.4 11/27 Normal [facility] CHEMISTRY UDS Note See Note 5 11/27 [...] CHEMISTRY U Phencyc Negative Negative 11/27 NA [facility] *NA* Medical (11/28/2011 14:51:00) Ce nter CHEMISTRY U Kelly Scr Negative Negative 11/27 NA [facility] *NA* Medical (11/28/2011 14:51:00) Ce nter CHEMISTRY U Amph Scr Negative Negative 11/27 [facility] *NA* Medical (11/28/2011 14:51:00) Ce nter CHEMISTRY U Opiate Scr Negative Negative 11/27 [facility] s *NA Medical (11/28/2011 14:51:00) Ce nter CHEMISTRY U Cocaine Negative Negative 11/27 [facility] Scr *NA* Medical (11/28/2011 14:51:00) Ce nter CHEMISTRY U Cannab Scr Negative Negative 11/27 [facility] s *NA* Medical (11/28/2011 14:51:00) Ce nter CHEMISTRY U Benzodia Negative Negative 11/27 [facility] Scr *NA Medical (11/28/2011 14:51:00) Ce nter BEDSIDE Comment1 Notify 09/17 NA [facility] GLUCOSE RN/MD /2011 Medical TESTING Center BEDSIDE Gluc POC 328 70 - 99 09/17 HI <sup>1</sup>I [facility] GLUCOSE Lif[place] /2011 nterpretive Medical TESTING Data: Center Upper Reportable Limit: 200 mg/dL. CHEMISTRY U Preg Negative Negative 09/17 Normal [facility] (09/18/2011 10:30:00) Mn dical Center URINALYSIS UA WBC None Seen None Seen 09/17 Normal [facility] (09/18/2011 10:30:00) Mn dical Center URINALYSIS UA RBC None Seen 0 - 2 09/17 Normal [facility] (09/18/2011 10:30:00) Mn dical Center URINALYSIS UA Bacteria None Seen None Seen 09/17 [place] (09/18/2011 10:30:00) Mn dical Center URINALYSIS UA Amorph Few /HPF None Seen 09/17 ABN [facility] *ABN* Medical (09/18/2011 10:30:00) Ce nter URINALYSIS Micro? Performed 09/17 Normal [facility] (09/18/2011 10:30:00) Mn dical Center URINALYSIS UA Sq Epi Rare /LPF Few 09/17 Normal [facility] (09/18/2011 10:30:00) Mn dical Center URINALYSIS UA Ketones 15 mg/dL Negative 09/17 ABN [facility] *ABN* Medical (09/18/2011 10:30:00) Ce nter URINALYSIS UA Glucose >=1000 mg/dL Negative 09/17 [place]N [place] * Medical (09/18/2011 10:30:00) Ce nter URINALYSIS UA Protein Trace Negative 09/17 ABN [facility] Medical (09/18/2011 10:30:00) Ce nter URINALYSIS UA 0.2 0.1 - 1.0 09/17 Normal [facility] Urobilinogen /2011 [facility] URINALYSIS UA Blood Negative Negative 09/17 Normal [facility] (09/18/2011 10:30:00) Mn dical Center URINALYSIS UA Bili Negative Negative 09/17 [facility] (09/18/2011 10:30:00) Ce nter URINALYSIS UA Leuk Est Negative Negative 09/17 [place] (09/18/2011 10:30:00) Mn dical Center URINALYSIS UA Nitrite Negative Negative 09/17 Normal [facility] (09/18/2011 10:30:00) Mn dical Center URINALYSIS UA pH 7.5 5.0 - 8.0 09/17 Normal Medical Center URINALYSIS UA Spec Grav 1.010 <=1.030 09/17 Normal Medical Center URINALYSIS UA Turbidity Slight Cloudy Clear 09/17 Normal [facility] (09/18/2011 10:30:00) Mn dical Center URINALYSIS UA Color Yellow Yellow 09/17 NA *NA* Medical (09/18/2011 10:30:00) Ce nter CHEMISTRY Phosphorus 4.4 2.5 - 4.5 09/17 Normal Medical Center CHEMISTRY Magnesium 1.6 1.8 - 2.4 09/17 LOW [facility] l [facility] BEDSIDE Gluc POC >400 70 - 99 09/17 CRIT <sup>2</sup>I [facility] GLUCOSE Lifscn /2011 nterpretive Medical TESTING [...] CO2 30 24 - 32 09/17 Normal [facility] CHEMISTRY Potassium 3.5 3.5 - 5.1 09/17 Normal [facility] CHEMISTRY Sodium Lvl 133 135 - 145 09/17 LOW Medical Center CHEMISTRY Creatinine 1.3 0.5 - 1.4 09/17 Normal [facility] CHEMISTRY Glucose Lvl 383 70 - 99 09/17 HI <sup>3</sup>I T ex nterpretive Medical Data: Adult Center reference range values reflect the clinical guidelines of the [place] [employer]. CHEMISTRY BUN 17 7 - 22 09/17 Normal [facility] CHEMISTRY AGAP 14.5 10.0 - 09/17 [...] 0.0 - 4.0 09/17 [place] [facility] HEMATOLOGY Basophils 0.0 0.0 - 1.0 09/17 Normal [facility] HEMATOLOGY Eosinophils 0.0 0.0 - 0.5 09/17 [place] # [facility] HEMATOLOGY Monocytes # 0.3 0.0 - 0.8 09/17 [place] [facility] HEMATOLOGY Segs 92.0 45.0 - 09/17 HI [place] 75.0 /2011 Medical Center HEMATOLOGY Lymphocytes 4.9 20.0 - 09/17 LOW [place] 40.0 /2011 Medical Center HEMATOLOGY Spherocyte Rare None Seen 09/17 [facility] *ABN* Medical (09/18/2011 08:52:00) Ce nter HEMATOLOGY Large Plt Slight None Seen 09/17 [facility] *ABN* Medical (09/18/2011 08:52:00) Ce nter HEMATOLOGY Microcyte 1+ None [facility]en [facility]17 [facility] (09/18/2011 08:52:00) Ce nter HEMATOLOGY Schistocyte Rare 09/17 NA Medical Center HEMATOLOGY Macrocyte 1+ None Seen 09/17 [facility] *ABN* Medical (09/18/2011 08:52:00) Ce nter HEMATOLOGY Lymphocytes 0.6 1.0 - 5.5 09/17 [place] # /2011 Medical Center HEMATOLOGY Segs-Bands # 10.8 1.5 - 8.1 09/17 [place] [facility] as /2011 Medical Center HEMATOLOGY Basophils # 0.0 0.0 - 0.2 09/[address] [facility] HEMATOLOGY Anisocyte 1+ None Seen 09/17 ABN [facility] *ABN* Medical (09/18/2011 08:52:00) Ce nter IMMUNOLOGY [facility]-HIV 1/2 Negative Negative 09/17 NA [facility] *NA* Medical (09/18/2011 08:52:00) Ce nter BEDSIDE Gluc POC 215 70 - 99 09/08 HI <sup>1</sup>I [facility] TESTING Data: Center Upper Reportable Limit: 200 mg/dL. BEDSIDE Comment1 Notify 09/08 [facility] GLUCOSE RN/ Medical TESTING Center BEDSIDE Comment1 Notify 09/08 [facility] GLUCOSE RN/MD /2011 Medical TESTING Center BEDSIDE Gluc POC 91 65 - 110 09/08 Normal <sup>2</sup>I [facility]COSE [facility] TESTING Data: Center Upper Reportable Limit: 200 mg/dL. BEDSIDE Comment1 Notify 09/08 [facility] GLUCOSE RN/MD /2011 Medical TESTING Center BEDSIDE Gluc POC 148 65 - 110 09/08 [place] <sup>3</sup>I [facility] GLUCOSE [facility] n[facility] Medical TESTING Data: Center Upper Reportable Limit: 200 mg/dL. CHEMISTRY Sodium Lvl 143 135 - 145 09/07 Normal [facility] CHEMISTRY Glucose Lvl 105 09/07 NA <sup>4</sup>I [place] nterpretive Medical Data: Center Reference Ranges : 0 - 7 days : 41 - 90 mg/dL 7 days - 150 yrs : 70 - 99 mg/dL (fasting), based on the clinical recommendatio ns of the [place] [employer]. CHEMISTRY CO2 29 24 - 32 09/07 Normal [facility] CHEMISTRY Chloride Lvl 103 95 - 109 09/07 Normal [facility] CHEMISTRY BUN 10 7 - 22 09/07 Normal [facility] CHEMISTRY Potassium 3.8 3.5 - 5.1 [...] Creatinine 0.5 0.5 - 1.4 09/06 Normal [facility] CHEMISTRY BUN 10 7 - 22 09/06 Normal Medical Center CHEMISTRY Potassium 4.1 3.5 - 5.1 09/06 Normal [facility] CHEMISTRY Sodium Lvl 141 135 - 145 09/06 Normal Medical Center CHEMISTRY Glucose Lvl 83 09/06 NA <sup>5</sup>I T ex nterpretive Medical Data: Center Reference Ranges : 0 - 7 days : 41 - 90 mg/dL 7 days - 150 yrs : 70 - 99 mg/dL (fasting), based on the clinical recommendatio ns of the [place] [employer]. CHEMISTRY Calcium Lvl 8.4 8.5 - 10.5 09/06 LOW a [facility] CHEMISTRY AGAP 14.1 10.0 - 09/06 [...] 12.7 12.0 - 09/06 Normal [place] 14.7 [facility] HEMATOLOGY PTT 28.5 22.9 - 09/06 Normal <sup>9</sup>[place] 35.8 /2011 nterpretive Medical Data: [facility] Center Therapeutic Range: 57 - 92 Seconds HEMATOLOGY Eosinophils 0.1 0.0 - 0.5 09/06 Normal [facility] HEMATOLOGY Basophils # 0.0 0.0 - 0.2 09/[address] [facility] HEMATOLOGY Basophils 0.4 0.0 - 1.0 09/06 Normal [facility] HEMATOLOGY Segs-Bands # 2.1 1.5 - 8.1 09/06 Normal [facility] HEMATOLOGY Monocytes 9.0 2.0 - 12.0 09/06 Normal [facility] HEMATOLOGY Eosinophils 2.4 0.0 - 4.0 09/[address] [facility] HEMATOLOGY Monocytes # 0.4 0.0 - 0.8 09/[address] [facility] HEMATOLOGY Lymphocytes 2.0 1.0 - 5.5 09/06 [place] [facility] HEMATOLOGY Lymphocytes 42.8 20.0 - 09/06 HI [place] 40.0 [facility] HEMATOLOGY Segs 45.4 45.0 - 09/06 Normal [place] 75.0 [facility] CHEMISTRY Chloride Lvl 105 95 - 109 09/06 Normal [facility] CHEMISTRY Potassium 4.1 3.5 - 5.1 09/06 Normal [facility] l [facility] CHEMISTRY Sodium Lvl 143 135 - 145 09/06 Normal [facility] CHEMISTRY CO2 29 24 - 32 09/06 Normal [facility] CHEMISTRY Calcium Lvl 8.7 8.5 - 10.5 09/06 Normal a [facility] CHEMISTRY BUN 6 7 - 22 09/06 LOW [facility] CHEMISTRY Creatinine 0.6 0.5 - 1.4 09/06 Normal [facility] Lvl [facility] CHEMISTRY Glucose Lvl 118 09/06 NA <sup>6</sup>I [place] nterpretive Medical Data: Center Reference Ranges : 0 - 7 days : 41 - 90 mg/dL 7 days - 150 yrs : 70 - 99 mg/dL (fasting), based on the clinical recommendatio ns of the [place] [employer]. CHEMISTRY AGAP 13.1 10.0 - 09/06 Normal [facility] 20.0 [facility] HEMATOLOGY Basophils # 0.0 0.0 - 0.2 09/06 Normal [facility] HEMATOLOGY Monocytes # 0.3 0.0 - 0.8 09/06 Normal [facility] HEMATOLOGY Eosinophils 0.1 0.0 - 0.5 09/06 Normal [facility] HEMATOLOGY Segs-Bands # 2.8 1.5 - 8.1 09/06 Normal [facility] HEMATOLOGY Lymphocytes 1.7 1.0 - 5.5 09/06 Normal [facility] HEMATOLOGY Basophils 0.6 0.0 - 1.0 09/06 Normal [facility] HEMATOLOGY Monocytes 6.9 2.0 - 12.0 09/06 Normal [facility] HEMATOLOGY Eosinophils 2.0 0.0 - 4.0 09/06 Normal [facility] HEMATOLOGY Segs 55.8 45.0 - 09/06 Normal [facility] 75.0 [facility] HEMATOLOGY Lymphocytes 34.7 20.0 - 09/06 Normal [facility] 40.0 [facility] HEMATOLOGY PTT 32.2 22.9 - 09/06 Normal <sup>10</sup> [facility] 35.8 Interpretive Medical Data: [facility] Therapeutic Range: 57 - 92 Seconds HEMATOLOGY PT 13.3 12.0 - 09/06 Normal [facility] 14.7 [facility] HEMATOLOGY INR 1.01 0.85 - 09/06 Normal <sup>8</sup>[place] 1. nterpretive Medical Data: Center RECOMMENDED RANGES FOR PROTIME INR: 2.0-3.0 for most medical and surgical thromboemboli c states. 2.5-3.5 for artificial heart valves and recurrent embolism. INR SHOULD BE USED ONLY FOR PATIENTS ON STABLE ANTICOAGULANT THERAPY. HEMATOLOGY Hct 27.5 36.0 - 09/06 LOW [place] 48.0 /2011 [facility] HEMATOLOGY RBC 3.34 4.20 - 09/06 [facility] 5.40 /2011 [facility] HEMATOLOGY Hgb 9.7 12.0 - 09/06 LOW [facility] 16.0 /2011 [facility] HEMATOLOGY WBC 5.0 3.7 - 10.4 09/06 Normal [facility] HEMATOLOGY MPV 9.2 7.4 - 10.4 09/06 Normal [facility] HEMATOLOGY Platelet 240 133 - 450 09/06 Normal [facility] HEMATOLOGY RDW 14.3 11.5 - 09/06 [facility] 14.5 /2011 [facility] HEMATOLOGY MCHC 35.2 32.0 - 09/06 [facility] 36.0 /2011 [facility] HEMATOLOGY MCH 28.9 27.0 - 09/06 [facility] 31.0 /2011 [facility] HEMATOLOGY MCV 82.1 81.0 - 09/06 [facility] 99.0 /2011 [facility] CHEMISTRY Magnesium 2.1 1.8 - 2.4 09/02 [facility] Lvl [facility] Microbiolo Culture: 09/01 [facility] [facility] Aspirate/Bod [facility] Fluid/Tissue Microbiolo Culture: 09/01 [facility] [facility] Anaerobic [facility] CHEMISTRY Temp [place] 37.0 08/31 NA [facility] CHEMISTRY O2 Sat [place] 27.0 40.0 - 08/31 [facility] 70.0 [facility] CHEMISTRY pCO2 [place] 47 38 - 52 08/31 Normal [facility] CHEMISTRY pH [place] 7.37 7.28 - 08/31 [facility] 7.42 /2011 [facility] CHEMISTRY BE [place] 1 -2-2 - 2 08/31 Normal [facility] CHEMISTRY HCO3 [place] 27.2 22.0 - 08/31 HI [facility] 26.0 [facility] CHEMISTRY pO2 [place] 19 20 - 49 08/31 LOW [facility] Microbiolo Culture: 08/31 [facility] [facility] Blood /2011 [facility] Microbiolo Culture: 08/31 [facility] [facility] Wound/Absces /2011 Medical s w/[facility] Stain CHEMISTRY Lactic Acid 1.0 0.5 - 2.2 08/31 Normal [facility] CHEMISTRY U Preg Negative Negative 08/31 Normal [facility] (09/01/2011 07:20:00) Mn dical Center URINALYSIS UA Sq Epi Occasional /LPF Few 08/31 Normal [facility] (09/01/2011 07:20:00) Mn dical Center URINALYSIS UA Leuk Est Negative Negative 08/31 [place] (09/01/2011 07:20:00) Mn dical Center URINALYSIS UA Nitrite Negative Negative 08/31 Normal [facility] (09/01/2011 07:20:00) Mn dical Center URINALYSIS UA 0.2 0.1 - 1.0 08/31 Normal [facility] Urobilinogen /2011 Medical Center URINALYSIS UA Blood Negative Negative 08/31 Normal [facility] (09/01/2011 07:20:00) Mn dical Center URINALYSIS UA Ketones >=80 mg/dL Negative 08/31 ABN [facility] *ABN* /2011 Medical (09/01/2011 07:20:00) Ce nter URINALYSIS UA Protein Negative Negative 08/31 Normal [facility] (09/01/2011 07:20:00) Mn dical Center URINALYSIS UA pH 6.0 5.0 - 8.0 08/31 Normal Medical Center URINALYSIS UA Bili Negative Negative 08/31 Normal [facility] (09/01/2011 07:20:00) Mn dical Center URINALYSIS UA Glucose >=1000 mg/dL Negative 08/31 [place]N [place] *ABN* /2011 Medical (09/01/2011 07:20:00) Ce nter URINALYSIS UA Spec Grav 1.035 <=1.030 08/31 [facility] URINALYSIS UA Turbidity Clear Clear 08/31 Normal [facility] (09/01/2011 07:20:00) Me dical Center URINALYSIS UA Color Yellow Yellow 08/31 NA [place] *NA* /2011 Medical (09/01/2011 07:20:00) Ce nter CHEMISTRY Lactic Acid 2.8 0.5 - 2.2 08/31 HI [facility] CHEMISTRY Magnesium 1.5 1.8 - 2.4 08/31 LOW [facility] HEMATOLOGY Polychrom Slight None Seen 08/31 Normal [facility] (09/01/2011 02:47:00[facility] Anisocyte 1+ None Seen 08/31 ABN [facility] *ABN Medical (09/01/2011 02:47:00) Ce nter HEMATOLOGY Large Plt Slight None [facility]en 08/[facility] ([facility]/2011 02:47:00) Ce nter HEMATOLOGY Tear Cell Occasional 08/31 NA [facility] HEMATOLOGY Elliptocyte Slight None Seen 08/31 [facility] [place] * Medical (09/01/2011 02:47:00) Ce nter BEDSIDE Comment1 Notify 08/22 NA [facility] GLUCOSE RN/MD Medical TESTING Center BEDSIDE Gluc POC 134 65 - 110 08/22 [place] <sup>1</sup>I [facility] GLUCOSE [facility] nterpretive Medical TESTING Data: [place] Upper Reportable Limit: 200 mg/dL. BEDSIDE Gluc POC 182 65 - 110 08/22 [place] <sup>2</sup>I [facility] GLUCOSE [facility] nterpretive Medical TESTING Data: [place] Upper Reportable Limit: 200 mg/dL. BEDSIDE Comment1 Notify 08/22 [facility] GLUCOSE RN/MD [facility] TESTING Center CHEMISTRY Phosphorus 3.0 2.5 - 4.5 08/22 Normal [facility] CHEMISTRY Magnesium 1.8 1.8 - 2.4 08/22 Normal [facility] CHEMISTRY Chloride Lvl 107 95 - 109 08/22 Normal [facility] CHEMISTRY Potassium 3.0 3.5 - 5.1 08/22 CRIT <sup>4</sup>R [place] esult Medical Comment: Center Critical Result(s) called to annie genao at 08/23/2011 5:18 by tac. Read back OK. CHEMISTRY Sodium Lvl 141 135 - 145 08/22 Normal [facility] CHEMISTRY Creatinine 0.6 0.5 - 1.4 08/22 Normal [facility] CHEMISTRY CO2 23 24 - 32 03 LOW [facility] CHEMISTRY Calcium Lvl 7.3 8.5 - 10.5 04 [place] [facility] CHEMISTRY Glucose Lvl 136 03 NA <sup>5</sup>I T ex nterpretive Medical Data: Center Reference Ranges : 0 - 7 days : 41 - 90 mg/dL 7 days - 150 yrs : 70 - 99 mg/dL (fasting), based on the clinical recommendatio ns of the [place] [employer]. CHEMISTRY AGAP 14.0 10.0 - 03/04 Normal [place] 20.0 [facility] CHEMISTRY BUN 5 7 - 22 03/04 LOW [facility] HEMATOLOGY Segs 69.6 45.0 - 03/04 Normal [place] 75.0 [facility] HEMATOLOGY Lymphocytes 21.5 20.0 - 03/04 Normal [place] 40.0 [facility] HEMATOLOGY Monocytes 7.6 2.0 - 12.0 03/ Normal [facility] HEMATOLOGY Eosinophils 1.0 0.0 - 4.0 03/ [place] [facility] HEMATOLOGY Basophils 0.3 0.0 - 1.0 03/ Normal [facility] HEMATOLOGY Segs-Bands # 4.8 1.5 - 8.1 03/ Normal [facility] HEMATOLOGY Eosinophils 0.1 0.0 - 0.5 03/ Normal [place] # [facility] HEMATOLOGY Lymphocytes 1.5 1.0 - 5.5 03/ Normal [place] # [facility] HEMATOLOGY Monocytes # 0.5 0.0 - 0.8 03/ [place] [facility] HEMATOLOGY Basophils # 0.0 0.0 - 0.2 03/ [place] [facility] HEMATOLOGY MPV 11.0 7.4 - 10.4 03/ HI Medical [place] HEMATOLOGY Platelet 161 133 - 450 03/ Normal [facility] HEMATOLOGY MCH 29.6 27.0 - 03/04 Normal [place] 31.0 [facility] HEMATOLOGY MCHC 35.4 32.0 - 03/04 Normal [place] 36.0 [facility] HEMATOLOGY RDW 14.1 11.5 - 03/04 Normal [place] 14.5 Medical [place] HEMATOLOGY WBC 6.8 3.7 - 10.4 03/ Normal [facility] HEMATOLOGY MCV 83.5 81.0 - 03 Normal [facility] 99.0 /2011 [facility] HEMATOLOGY RBC 4.44 4.20 - 03 Normal [facility] 5.40 /2011 [facility] HEMATOLOGY Hgb 13.1 12.0 - 08/22 Normal [facility] 16.0 /2011 [facility] HEMATOLOGY Hct 37.1 36.0 - 08/22 Normal [facility] 48.0 /2011 Medical Center BEDSIDE Comment1 Notify 08/22 NA [facility] GLUCOSE RN/MD /2011 Medical TESTING Center BEDSIDE Gluc POC 332 65 - 110 08/22 [place] <sup>3</sup>I [facility] GLUCOSE Lif[place] /2011 nterpretive Medical TESTING Data: Center Upper Reportable Limit: 200 mg/dL. CHEMISTRY Phosphorus 2.5 2.5 - 4.5 08/21 Normal [facility] CHEMISTRY Glucose Lvl 201 08/21 NA <sup>6</sup>I [place] nterpretive Medical Data: Center Reference Ranges : 0 - 7 days : 41 - 90 mg/dL 7 days - 150 yrs : 70 - 99 mg/dL (fasting), based on the clinical recommendatio ns of the [place] [employer]. CHEMISTRY BUN 7 7 - 22 08/21 Normal [facility] CHEMISTRY CO2 19 24 - 32 08/21 [facility] CHEMISTRY Creatinine 0.3 0.5 - 1.4 08/21 [facility] Lvl [facility] CHEMISTRY Sodium Lvl 137 135 - 145 08/21 Normal [facility] CHEMISTRY Chloride Lvl 103 95 - 109 08/21 [facility] CHEMISTRY Potassium 3.6 3.5 - 5.1 08/21 Normal [facility] CHEMISTRY Calcium Lvl 7.9 8.5 - 10.5 08/21 [facility] CHEMISTRY AGAP 18.6 10.0 - 03 Normal [facility] 20.0 [facility] CHEMISTRY Magnesium 1.6 1.8 - 2.4 08/21 [facility] HEMATOLOGY Basophils # 0.0 0.0 - 0.2 08/21 Normal [facility] HEMATOLOGY Eosinophils 0.4 0.0 - 4.0 08/21 Normal [facility] HEMATOLOGY Basophils 0.5 0.0 - 1.0 03/03 [...] Phosphorus 2.6 2.5 - 4.5 03/ Normal [facility] CHEMISTRY Magnesium 1.8 1.8 - 2.4 03/ Normal [facility] Lvl Medical Center CHEMISTRY Potassium 3.7 3.5 - 5.1 03/ Normal [facility] Lvl Medical Center CHEMISTRY Sodium Lvl 137 135 - 145 03/ Normal Medical Center CHEMISTRY Creatinine 0.6 0.5 - 1.4 03/ Normal [facility] Lvl [facility] CHEMISTRY BUN 16 7 - 22 03 Normal [facility] CHEMISTRY Glucose Lvl 200 08/20 NA <sup>7</sup>I [place] nterpretive Medical Data: Center Reference Ranges : 0 - 7 days : 41 - 90 mg/dL 7 days - 150 yrs : 70 - 99 mg/dL (fasting), based on the clinical recommendatio ns of the [place] [employer]. CHEMISTRY Calcium Lvl 8.3 8.5 - 10.5 08/20 [place] [facility] CHEMISTRY AGAP 19.7 10.0 - 03 Normal [place] 20.0 [facility] CHEMISTRY Chloride Lvl 99 95 - 109 08/20 Normal [facility] CHEMISTRY CO2 22 24 - 32 08/20 LOW [facility] HEMATOLOGY Platelet 172 133 - 450 08/20 Normal [facility] HEMATOLOGY MPV 12.0 7.4 - 10.4 08/20 [facility] HEMATOLOGY WBC 7.3 3.7 - 10.4 08/20 Normal [facility] HEMATOLOGY RDW 14.6 11.5 - 08/20 [facility] 14.5 /2011 [facility] HEMATOLOGY MCHC 35.0 32.0 - 03 Normal [facility] 36.0 /2011 [facility] HEMATOLOGY RBC 4.54 4.20 - 08/20 Normal [facility] 5.40 /2011 [facility] HEMATOLOGY Hct 37.6 36.0 - 08/20 Normal [facility] 48.0 [facility] HEMATOLOGY MCV 82.9 81.0 - 08/20 Normal [facility] 99.0 [facility] HEMATOLOGY MCH 29.0 27.0 - 03 Normal [facility] 31.0 /2011 [facility] HEMATOLOGY Hgb 13.2 12.0 - 03 Normal [place]sup[place]sup[place] 16.[place] esult Medical Comment: Center rechecked, no clot seen HEMATOLOGY Elliptocyte Slight None Seen 08/[place] *[place]N* /2011 Medical (08/21/2011 04:28:00) Ce nter HEMATOLOGY Polychrom Slight None Seen 08/20 Normal [facility] (08/21/2011 04:28:00) Mn dical Center HEMATOLOGY Basophils # 0.0 0.0 - 0.2 03 [place] [facility] HEMATOLOGY Hypochrom Slight None Seen 08/20 Normal [facility] (08/21/2011 04:28:00) Mn dical Center HEMATOLOGY Monocytes # 0.6 0.0 - 0.8 08/20 [place] [facility] HEMATOLOGY Eosinophils 0.0 0.0 - 0.5 08/20 [place] [facility] HEMATOLOGY Segs-Bands # 5.3 1.5 - 8.1 08/20 Normal [facility] HEMATOLOGY Lymphocytes 1.3 1.0 - 5.5 08/20 [place] [facility] HEMATOLOGY Basophils 0.5 0.0 - 1.0 08/20 Normal [facility] HEMATOLOGY Monocytes 8.5 2.0 - 12.0 08/20 Normal Medical Center HEMATOLOGY Eosinophils 0.3 0.0 - 4.0 08/20 [place] [facility] HEMATOLOGY Lymphocytes 17.3 20.0 - 08/20 LOW [place] 40.0 Medical Center HEMATOLOGY Segs 73.4 45.0 - 08/20 Normal [place] 75.0 Medical Center BEDSIDE Comment2 Verify 08/19 NA [facility] GLUCOSE w/Lab Medical TESTING Center CHEMISTRY S Preg Negative Negative Normal [facility] (08/19/2011 15:58:00) Mn dical Center CHEMISTRY Lipase Lvl 169 73 - 393 Normal [facility] CHEMISTRY ALT 54 0 - 65 Normal [facility] CHEMISTRY Alk Phos 110 39 - 136 Normal [facility] CHEMISTRY Bili Direct 0.1 0.0 - 0.3 Normal [facility] CHEMISTRY Bili Total 0.9 0.2 - 1.3 Normal [facility] CHEMISTRY Albumin Lvl 4.4 3.5 - [...] UA Bacteria Occasional /HPF None Seen Normal [facility] (08/19/2011 15:58:00) Me dical Center URINALYSIS UA RBC 3-5 /HPF 0 - 2 ABN [place] *ABN* Medical (08/19/2011 15:58:00) Ce nter URINALYSIS UA WBC 3 0 - 5 NA Medical Center URINALYSIS UA Mucus Few /LPF None Seen Normal [facility] (08/19/2011 15:58:00) Mn dical Center URINALYSIS UA Amorph Occasional /HPF None Seen ABN [facility] [place] [facility] *ABN* Medical (08/19/2011 15:58:00) Ce nter URINALYSIS UA 0.2 0.1 - 1.0 Normal [facility] Urobilinogen [facility] URINALYSIS UA Sq Epi Rare /LPF Few Normal [facility] (08/19/2011 15:58:00) Me dical Center URINALYSIS Micro? Performed Normal [facility] (08/19/2011 15:58:00) Me dical Center URINALYSIS UA Leuk Est Negative Negative [place] (08/19/2011 15:58:00) Me dical Center URINALYSIS UA Nitrite Negative Negative Normal [facility] (08/19/2011 15:58:00) Me dical Center URINALYSIS UA pH 5.5 5.0 - 8.0 Normal Medical Center URINALYSIS UA Blood Trace Negative ABN [facility] *ABN* Medical (08/19/2011 15:58:00) Ce nter URINALYSIS UA Bili Negative Negative Normal [facility] (08/19/2011 15:58:00) Me dical Center URINALYSIS UA Ketones 80 mg/dL Negative ABN [place] *ABN* Medical (08/19/2011 15:58:00) Ce nter URINALYSIS UA Glucose >=1000 mg/dL Negative [place] *ABN* Medical (08/19/2011 15:58:00) Ce nter URINALYSIS UA Protein Negative Negative Normal [facility] (08/19/2011 15:58:00) Mn dical Center URINALYSIS UA Turbidity Slight Cloudy Clear Normal [facility] (08/19/2011 15:58:00) Mn dical Center URINALYSIS UA Spec Grav 1.025 <=1.030 NA Medical Center URINALYSIS UA Color Yellow Yellow Normal [facility] (08/19/2011 15:58:00) Mn dical Center CHEMISTRY AST 23 0 - 37 Normal [facility] CHEMISTRY Bili Total 1.0 0.2 - 1.3 Normal [facility] CHEMISTRY Alk Phos 115 39 - 136 Normal [facility] CHEMISTRY ALT 56 0 - 65 Normal [facility] CHEMISTRY Total 9.0 6.4 - 8.4 [facility] Protein [facility] CHEMISTRY Albumin Lvl 4.8 3.5 - 5.0 Normal [facility] CHEMISTRY Globulin 4.2 2.0 - 4.0 [facility] CHEMISTRY A/G Ratio 1.1 0.7 - 1.6 Normal [facility] CHEMISTRY B/C Ratio 30 6 - 25 [facility] HEMATOLOGY RBC Morph Normal Normal [facility] (08/19/2011 15:13:00) Mn dicca Center HEMATOLOGY Large Plt Slight None Seen ABN [facility] *ABN* Medical (08/19/2011 15:13:00) Ce nter HEMATOLOGY Atypical 0.0 <=0.0 Normal [facility] Lymphs [facility] HEMATOLOGY Bands 0.0 0.0 - 11.0 Normal [facility] CHEMISTRY O2 Sat [place] 74.0 40.0 - [facility] [place] 70.0 Medical Center CHEMISTRY Temp [place] 37.0 NA Medical Center CHEMISTRY pO2 [place] 42 20 - 49 Normal [facility] CHEMISTRY HCO3 [place] 17.3 22.0 - LOW [facility] 26.0 [facility] CHEMISTRY pH [place] 7.34 7.28 - Normal [facility] 7.42 /2011 [facility] CHEMISTRY pCO2 [place] 32 38 - 52 LOW [facility] CHEMISTRY BE [place] -7 -2-2 - 2 LOW [facility] IMMUNOLOGY CDC-HIV 1/2 Negative Negative NA MARY ALICE lombardo Ab *NA* /2011 Medical (08/19/2011 14:34:00) Ce nter Pathology Reports No Data Provided for This Section Diagnostic Reports Report Value Date Source Abdomen RUQ US EXAM: US ABDOMEN LIMITED 07/26/2016 MARY ALICE lombardo Medical EXAM: Abdomen RUQ US Center DATE: 07/26/2016 7:29 AM REGULATORY LEADER INDICATION: Abdominal pain, acute ADDITIONAL INFORMATION: Sign [...] DX EXAM: XR CHEST 1 VIEW 07/23/2016 [facility] edical DATE: 07/23/2016 9:47 PM REGULATORY LEADER Cente r INDICATION: Chest pain COMPARISON: X-ray chest 1 view performed r 2015 TECHNIQUE: AP chest FINDINGS: No pulmonary o r pleural-based abnormality is identified. Pulmonary vascularity is normal. The heart size is stable. No acute bony abnormality is identified. IMPRESSION: 1. No acute radiographic abnormality of the steven st. 2. Stable mild cardiomegaly. Retroperitoneal Complete EXAM: US RENAL 06/11/2016 [facility] US DATE: 06/11/2016 6:53 AM REGULATORY LEADER [place] [address] INDICATION: Abdominal disten tion/proteinuria CT [...] DX EXAM: XR CHEST 1 VIEW 06/10/2016 [facility] edical DATE: 06/10/2016 1108 hours Cent [...] CT ABDOMEN AND PELVIS WITH CONTRAST: [address] [facility] [address] CLINICAL HISTORY: Abdominal pain, acute [...] Comments Source Systolic (mm Hg) 131 07/30/2016 [facility] Diastolic (mm Hg) 86 07/30/2016 [facility] Respitory Rate 20 07/30/2016 [facility] Heart Rate 65 07/30/2016 [facility] Temperature Oral (F) 97.4 F 07/30/2016 [facility] [place] Systolic (mm Hg) 169 07/30/2016 [facility] Diastolic (mm Hg) 99 07/30/2016 [facility] Heart Rate 66 07/30/2016 [facility] Temperature Oral (F) 97.2 F 07/30/2016 [facility] [place] Respitory Rate 18 07/30/2016 [facility] Heart Rate 67 07/30/2016 [facility] [place] [facility] Temperature Oral (F) 97.0 F 07/30/2016 [facility] Respitory Rate 16 07/30/2016 [facility] Systolic (mm Hg) 122 07/30/2016 [facility] dical Center Diastolic (mm Hg) 80 07/30/2016 [facility] edical Center Weight 92.273 07/24/2016 [facility] BMI Calculated 36.04 07/24/2016 [facility] Height 160.02 cm 07/24/2016 [facility] Respitory Rate 20 06/15/2016 [facility] Systolic (mm Hg) 169 06/15/2016 [facility] dical Center Diastolic (mm Hg) 90 06/15/2016 [facility] edical Center Respitory Rate 16 06/15/2016 [facility] Systolic (mm Hg) 151 06/15/2016 [facility] dical Center Diastolic (mm Hg) 73 06/15/2016 [facility] edical Center Respitory Rate 22 06/15/2016 [facility] Systolic (mm Hg) 176 06/15/2016 [facility] dical Center Diastolic (mm Hg) 95 06/15/2016 [facility] Center Temperature Oral (F) 97.1 F 06/14/2016 [facility] Center Temperature Oral (F) 97.1 F 06/14/2016 [facility] Center Temperature Oral (F) 96.8 F 06/12/2016 [facility] Weight 103.182 06/11/2016 [facility] Height 160.02 cm 06/11/2016 [facility] BMI Calculated 40.3 06/11/2016 [facility] Heart Rate 82 06/11/2016 [facility] Heart Rate 81 06/11/2016 [facility] Heart Rate 82 06/10/2016 [facility] Weight 86.364 06/10/2016 [facility] BMI Calculated 33.73 06/10/2016 [facility] Height 160.02 cm 06/10/2016 [facility] Temperature Oral (F) 98.0 F 06/26/[address] [facility] Systolic (mm Hg) 111 06/26/2014 [facility] dical Center Heart Rate 104 06/26/2014 [facility] [place] Diastolic (mm Hg) 70 06/26/2014 [facility] Center Respitory Rate 18 06/26/2014 [facility] Systolic (mm Hg) 109 06/26/2014 [facility] dical Center Diastolic (mm Hg) 66 06/26/2014 [facility] Respitory Rate 18 06/26/2014 [facility] Temperature Oral (F) 98.0 F 06/26/2014 [facility] [place] Temperature Oral (F) 98.2 F 06/26/2014 [facility] [place] Respitory Rate 21 06/26/2014 [facility] Systolic (mm Hg) 106 06/26/2014 [facility] dical Center Diastolic (mm Hg) 65 06/26/2014 [facility] Heart Rate 118 06/26/2014 [facility] [place] Heart Rate 113 06/26/2014 [facility] Height 154.94 cm 06/26/2014 [facility] [place] Weight 75 06/26/2014 [facility] BMI Calculated 31.24 06/26/2014 [facility] Respitory Rate 18 04/15/2013 [facility] Diastolic (mm Hg) 89 04/15/[address] Heart Rate 81 04/15/2013 [facility] Systolic (mm Hg) 149 04/15/2013 [facility] [facility] Temperature Oral (F) 98.7 F 04/15/2013 [facility] Resp[facility] Rate 18 04/15/2013 [facility] Diastolic (mm Hg) 87 04/15/[address] Systolic (mm Hg) 145 04/15/2013 [facility] Temperature Oral (F) 98.2 F 04/15/2013 [facility] Heart Rate 88 04/15/2013 [facility] Height 160.02 cm 04/15/2013 [facility] Weight 63.636 04/15/2013 [facility] Temperature Oral (F) 98.6 F 04/15/2013 [facility] Respitory Rate 18 04/15/2013 [facility] Heart Rate 85 04/15/2013 [facility] Diastolic (mm Hg) 107 04/15/[address] Systolic (mm Hg) 172 04/15/2013 [place] Weight 58.636 03/14/2012 [place] Systolic (mm Hg) 138 12/01/2011 [facility] dical Center Respitory Rate 18 12/01/2011 [facility] Heart Rate 90 12/01/2011 [facility] Medica l Center Diastolic (mm Hg) 80 12/01/2011 [facility] edical Center Temperature Oral (F) 99.6 F 12/01/2011 [place] [facility] Diastolic (mm Hg) 106 11/30/2011 [facility] edical Center Heart Rate 96 11/30/2011 [facility] Medica l Center Respitory Rate 18 11/30/2011 [facility] Medi tawnya Center Systolic (mm Hg) 187 11/30/2011 [facility] dical Center Temperature Oral (F) 99.8 F 11/30/[address] [facility] Respitory Rate 20 11/30/2011 [facility] Medi tawnya Center Systolic (mm Hg) 178 11/30/2011 [facility] dical Center Diastolic (mm Hg) 104 11/30/2011 [facility] edical Center Heart Rate 102 11/30/2011 [facility] Temperature Oral (F) 99.8 F 11/30/[address] [facility] Weight 56.818 11/29/2011 [place] [facility] Height 157.48 cm 11/29/2011 [place] [facility] Weight 57.273 11/28/2011 [place] [facility] Weight 66.364 09/18/2011 [place] [facility] Height 154.94 cm 09/18/2011 [facility] Medica l Center Heart Rate 75 09/09/2011 [facility] Medica l Center Systolic (mm Hg) 115 09/09/2011 [facility] dical Center Diastolic (mm Hg) 69 09/09/2011 [facility] edical Center Respitory Rate 18 09/09/2011 [facility] Temperature Oral (F) 97.5 F 09/09/2011 [place] [facility] Diastolic (mm Hg) 68 09/09/2011 [facility] edical Center Heart Rate 66 09/09/2011 [facility] Medica l Center Temperature Oral (F) 98.6 F 09/09/2011 [place] [facility] Respitory Rate 20 09/09/2011 [place] [facility] Systolic (mm Hg) 118 09/09/2011 [facility] dical Center Respitory Rate 20 09/09/2011 [place] [facility] Diastolic (mm Hg) 71 09/09/2011 [facility] edical Center Systolic (mm Hg) 123 09/09/2011 [facility] dical Center Heart Rate 67 09/09/2011 [facility] Temperature Oral (F) 98.7 F 09/09/2011 [facility] [place] Weight 68.182 09/01/2011 [facility] Height 154.94 cm 09/01/2011 [facility] Height 154.94 cm 09/01/2011 [facility] Medica l Center Weight 68.182 09/01/2011 [facility] Medica l Center Respitory Rate 20 08/23/2011 [facility] Heart Rate 93 08/23/2011 [facility] Systolic (mm Hg) 136 08/23/2011 [facility] dical Center Diastolic (mm Hg) 82 08/23/2011 [facility] edical Center Temperature Oral (F) 97.7 F 08/23/2011 [facility] [place] Heart Rate 101 08/23/2011 [facility] Temperature Oral (F) 98.2 F 08/23/2011 [facility] [place] Diastolic (mm Hg) 105 08/23/2011 [facility] edical Center Systolic (mm Hg) 172 08/23/2011 [facility] dical Center Respitory Rate 20 08/23/2011 [facility] Systolic (mm Hg) 158 08/23/2011 [facility] dical Center Diastolic (mm Hg) 98 08/23/2011 [facility] edical Center Temperature Oral (F) 98.3 F 08/23/2011 [facility] [place] Heart Rate 95 08/23/2011 [facility] Medica l Center Respitory Rate 20 08/22/2011 [facility] Height 154.94 cm 08/20/2011 [facility] Weight 67.273 08/20/2011 [facility] Height 154.94 cm 08/19/2011 [facility] Medica l Center Weight 67.273 08/19/2011 [facility] Encounters Location Location Encounter Encounter Reason Attending ADM DC Stat us Source Details Type Number For Provider Date Date Visit [facility] Inpatient [id number] DKNaun HENRIQUEZ 08/22 Active Medical 0 AHMED /2011 [facility] Inpatient [id number] ELBOW FLORNECE 08/31 09/08 Active Medical 1 ABSCESS/ OMIDVAR /2011 [facility] CEMIA Center [facility] Emergency [id number] CASA 09/17 09/17 Discha [facility] Medical 2 BUBLEWICZ /2011 ed [facility] OU [id number] N/V OSMAR 11/27 11/29 Active Medical 3 INABILIT GUNNAR /2011 [facility] PO Emergency [id number] HUNG HERNANDEZ 03/14 03/14 Discha rg [facility] ed [facility] Emergency [id number] ABD PAIN OMAIRA 04/14 04/15 Active [facility] 7 MARRY /2012 [facility] EC [id number] Atul 06/26 06/26 [facility] Emergency 8 Ostermayer /2014 [facility] Inpatient [id number] Joe 06/10 06/15 Vin 9 Franck /2015 [facility] Inpatient [id number] Danaeja Cha 07/24 07/30 Vin 0 /2016 [facility] Preadmit [id number] NAUSEA, CASA Active M [facility] 8 VOMITING WOLLNER [facility] Outpatient [id number] GASTROPE NON Canc [facility] Medical 6 RIS PHYSICIAN [facility] Outpatient [id number] GASTROPE NON Canc [facility] Medical 5 [facility] PHYSICIAN [facility] Procedures Procedure Code Date Perfomer Comments Source Emergency [id number] 04/15/2013 [facility] department visit for the evaluation and management of a patient, which requires these 3 kamara components within the constraints imposed by the urgency of the patient's clinical condition and/or mental status: A comprehensive history; A comprehensi Injection or 99.29 04/15/2013 [facility] Infusion of Other Therapeutic or Prophylactic Substance Intravenous [id number] 04/15/2013 [facility] infusion, hydration; each additional hour (List separately in addition to code for primary procedure) Therapeutic, 00613 04/15/2013 [facility] prophylactic, or diagnostic injection (specify substance or drug); each additional sequential intravenous push of a new substance/drug (List separately in addition to code for primary procedure) Therapeutic, 03415 04/15/2013 [facility] prophylactic, or diagnostic injection (specify substance or drug); intravenous push, single or initial substance/drug section [id number] [facility] Tubal ligation [id number] [facility] Assessment and Plan Assessment and Plan Date Source Extracted from:Title: Hospitalist Progress Note 07/30/2016 [facility] Author: Luna Jamison MD [place] Date: 07/30/16 Assessment/Plan 1.Acute on chronic kidney [...] que stions. We can be reached at [phone]. Extracted from:Title: History and Physical Author: Danae [...] Weight 92.273, kg, Start date: 07/24/16 9:00:00 REGULATORY LEADER, Duration: 30 day, Stop date: 08/22/16 9:00:00 REGULATORY LEADER atorvastatin, 40 mg, 1 tab, Route: PO , Drug form: TAB, Bedtime, Dosing Weight 92.273, kg, Start date: 07/24/16 21:00:00 REGULATORY LEADER, Duration: 30 day, Stop date: 08/22/16 21:00:00 REGULATORY LEADER buPROPion, 150 mg, 1 tab, Route: PO, Drug form: ERTAB, Daily, Dosing Weight 92.273, kg, Start date: 07/24/16 9:00:00 REGULATORY LEADER, Duration: 30 day, Stop date: 08/22/16 9:00:00 REGULATORY LEADER Dextrose 50% Syringe, 25 gm, 50 mL, R oute: IVP, Drug Form: INJ, Dosing Weight 92.273, kg, PRN, PRN Blood Glucose Results, Start date: 07/24/16 2:40:00 REGULATORY LEADER, Duration: 30 day, Stop date: 08/23/16 2:39:00 REGULATORY LEADER Dextrose 50% Syringe, 12.5 gm, 25 mL, Route: IVP, Drug Form: INJ, Dosing Weight 92.273, kg, PRN, PRN Blood Glucose Results, Start date: 07/24/16 2:40:00 REGULATORY LEADER, Duration: 30 day, Stop date: 08/23/16 2:39:00 REGULATORY LEADER Depakote ER 500 mg oral tablet, exten ded release, 500 mg, 1 tab, Route: PO, Drug form: ERTAB, QAM, Dosing Weight 92.273, kg, Start date: 07/24/16 9:00:00 REGULATORY LEADER, Duration: 30 day, Stop date: 08/22/16 9:00:00 REGULATORY LEADER docusate, 100 mg, 1 cap, Route: PO, D rug form: CAP, BID, Dosing Weight 92.273, kg, PRN Constipation, Start date: 07/24/16 1:20:00 REGULATORY LEADER, Duration: 30 day, Stop date: 08/23/16 1:19:00 REGULATORY LEADER Lasix, 40 mg, 4 mL, Route: IVP, Drug form: INJ, Q12H, Dosing Weight 92.273, kg, Start date: 07/24/16 9:00:00 REGULATORY LEADER, Duration: 30 day, Stop date: 08/22/16 21:00:00 REGULATORY LEADER gabapentin 300 mg oral capsule, 1 cap , Route: PO, Drug form: CAP, BID, Dosing Weight 92.273, kg, Start date: 07/24/16 9:00:00 REGULATORY LEADER, Duration: 30 day, Stop date: 08/22/16 17:00:00 REGULATORY LEADER glucagon, 1 mg, Route: IM, Drug form: PDR/INJ, PRN, Dosing Weight 92.273, kg, PRN Blood Glucose Results, Start date: 07/24/16 2:40:00 REGULATORY LEADER, Duration: 30 day, Stop date: 08/23/16 2:39:00 REGULATORY LEADER hydrALAZINE 100 mg oral tablet, 100 m g, 1 tab, Route: PO, Drug form: TAB, BID, Dosing Weight 92.273, kg, Start date: 07/24/16 9:00:00 REGULATORY LEADER, Duration: 30 day, Stop date: 08/22/16 17:00:00 REGULATORY LEADER insulin aspart, 4 unit, 0.04 mL, Rout e: SUB-Q, Drug form: SOLN, TID-Before Meals, Dosing Weight 92.273, kg, PRN Blood Glucose Results, Start date: 07/24/16 2:40:00 REGULATORY LEADER, Duration: 30 day, Stop date: 08/23/16 2:39:00 REGULATORY LEADER insulin aspart, 5 unit, 0.05 mL, Rout e: SUB-Q, Drug form: SOLN, TID-Before Meals, Dosing Weight 92.273, kg, PRN Blood Glucose Results, Start date: 07/24/16 2:40:00 REGULATORY LEADER, Duration: 30 day, Stop date: 08/23/16 2:39:00 REGULATORY LEADER insulin aspart, 2 unit, 0.02 mL, Rout e: SUB-Q, Drug form: SOLN, TID-Before Meals, Dosing Weight 92.273, kg, PRN Blood Glucose Results, Start date: 07/24/16 2:40:00 REGULATORY LEADER, Duration: 30 day, Stop date: 08/23/16 2:39:00 REGULATORY LEADER insulin aspart, 3 unit, 0.03 mL, Rout e: SUB-Q, Drug form: SOLN, TID-Before Meals, Dosing Weight 92.273, kg, PRN Blood Glucose Results, Start date: 07/24/16 2:40:00 REGULATORY LEADER, Duration: 30 day, Stop date: 08/23/16 2:39:00 REGULATORY LEADER insulin aspart, 1 unit, 0.01 mL, Rout e: SUB-Q, Drug form: SOLN, TID-Before Meals, Dosing Weight 92.273, kg, PRN Blood Glucose Results, Start date: 07/24/16 2:40:00 REGULATORY LEADER, Duration: 30 day, Stop date: 08/23/16 2:39:00 REGULATORY LEADER insulin aspart, 2 unit, 0.02 mL, Rout e: SUB-Q, Drug form: SOLN, TID-Before Meals, Dosing Weight 92.273, kg, Start date: 07/24/16 7:30:00 REGULATORY LEADER, Duration: 30 day, Stop date: 08/22/16 16:30:00 REGULATORY LEADER Lantus 100 units/mL, 40 unit, 0.4 mL, Route: SUB-Q, Drug form: SOLN, Daily, Dosing Weight 92.273, kg, Start date: 07/24/16 9:00:00 REGULATORY LEADER, Duration: 30 day, Stop date: 08/22/16 9:00:00 REGULATORY LEADER metoprolol extended release, 100 mg, 2 tab, Route: PO, Drug form: ERTAB, Daily, Start date: 07/24/16 9:00:00 REGULATORY LEADER, Duration: 30 day, Stop date: 08/22/16 9:00:00 REGULATORY LEADER ondansetron, 4 mg, 2 mL, Route: IVP, Drug form: INJ, Q6H, Dosing Weight 92.273, kg, PRN Nausea and Vomiting, Start date: 07/24/16 1:20:00 REGULATORY LEADER, Duration: 30 day, Stop date: 08/23/16 1:19:00 REGULATORY LEADER Protonix, 40 mg, 1 tab, Route: PO, Dr ug form: ECTAB, Daily, Dosing Weight 92.273, kg, Start date: 07/24/16 9:00:00 REGULATORY LEADER, Duration: 30 day, Stop date: 08/22/16 9:00:00 REGULATORY LEADER Zoloft, 200 mg, 2 tab, Route: PO, Ezio g form: TAB, Daily, Dosing Weight 92.273, kg, Start date: 07/24/16 9:00:00 REGULATORY LEADER, Duration: 30 day, Stop date: 08/22/16 9:00:00 REGULATORY LEADER Up ad monique Ambulation Basic Metabolic Panel [...] [facility] hospitalist is primary. Please call [phone] for additional questions. Prophylaxis TEDs Disposition DC when medically stable. Extracted from:Title: Team A Discharge Summary 06/15/2016 [facility] Medical Author: Gina Gomes MD Center [...] management Follow Up Appts: Follow Up With [facility] , Call for appointment, faby [...] All Problems (Selected) Hypertension / SNOMED CT 87649718 / Confirmed Hypokalemia / SNOMED CT 62900680 / Confirmed Hypomagnesemia / ICD-9-CM 275.2 / Confirmed MRSA / SNOMED CT 296402145 / Confirmed Problem added by Discern Expert. 09/01/11 - Elbow wound Nausea and vomiting / SNOMED CT 55693337 / Confirmed Objective Meds Scheduled Meds (15):aspirin [...] Extracted from:Title: Infection Control Isolation Alert Author: [place] Date: 06/12/16 ISOLATION ALERT This [...] que stions. We can be reached at [phone]. Extracted from:Title: Medicine Team A History and Physical Author: Silverio Robles MD Date: 06/10/16 Medicine Team A History and Physical Note: Patient Room: ED01 - , PENDING SALE TO [facility] CATHI ROWLEY 35y (: 1980) F Attending: Joe Juárez MD [facility] ne: Service: Nephrology CHIEF COMPLAINT: [...] upper and lower extremities strength 5/5 bilaterally, chart snatcher strength 5/5, pitting pedal edema bilaterally 2+ [...] History Date Source Social History TypeResponse 06/11/2016 [facility] Substance Abuse Use: None. 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
--- OUTSIDE RECORDS SUMMARY | 2020-06-13 14:08 | XMS REPORT | Continuity of Care Document ---
:1980 Author Organization [facility] t Address 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 00:00: Medical diabetes diabetes 00 Center mellitus mellitus Gastropare Gastropare Disease Active [facility] sis due to sis due to 716 Pati kes - DM DM 00:00: Medical 00 [place] Cyclic Cyclic Disease Active [facility] vomiting vomiting 7-16 [facility] - syndrome syndrome 00:00: Medica l 00 Center Anxiety Anxiety Disease Active [facility] 7[facility]16 [facility] - 00:[facility]: [facility] 00 [place] Bipolar Bipolar Disease Active [facility] disorder disorder -16 [facility] - 00:00: Medical 00 [place] Hypertensi Hypertensi Disease Active [facility] ve ve 7[facility]16 [facility] - emergency emergency 00:00: [facility] 00 Center CONGESTION Diagnosis Active 2016-07-24 Memoria AMD 2- 01:49:00 l DIARRHEA 00:00: Ryde CONGESTION 00 AMD DIARRHEA Active 07/23/2016 [facility] ACUTE RESP Diagnosis Active 2016-09-09 Memoria FAILURE 2- 09:11:00 l ACUTE 00:00: Vin RESP 00 FAILURE Active 07/23/2016 [facility] SOB/SWELLI Diagnosis Active 2015-062016-06-10 Memoria NG 2- 15:48:00 l 00:00: Ryde SOB/SWELLI 00 NG Active 6 [facility] CHF/RENAL Diagnosis Active 2015-062016-06-24 Memoria DISEASE - 15:35:00 l 00:00: Ryde CHF/RENAL 00 DISEASE Active 06/10/2016 [facility] ABDOMINAL Diagnosis Active 2014-06-26 Memoria PAIN, 1- 05:44:00 l SEIZURES 00:00: Ryde ABDOMINAL 00 PAIN, SEIZURES Active 06/26/2013 [facility] ABD PAIN Diagnosis Active 2012-062013-04-19 M emoria 0- 21:51:00 l ABD PAIN 19:00: Jake n 00 Active 04/14/2013 [facility] GASTROPERI Diagnosis Active 2012-09-13 Memoria SIS 2- 15:17:00 l 00:00: Ryde GASTROPERI 00 SIS Active 08/02/2012 [facility] ABDOMINAL Diagnosis Active 2012-03-14 Memoria PAIN 03-14 16:56:00 l 14:00: Ryde ABDOMINAL 00 PAIN Active 03/14/2012 [facility] NAUSEA, Diagnosis Active 2012-03-14 Me moria VOMITING 03-14 13:25:00 l NAUSEA, 08:00: Vin VOMITING 00 Active 03/14/2012 [facility] VOMITTING Diagnosis Active 2011-11-28 Memoria 11-27 16:28:00 l 00:00: Vin VOMITTING 00 Active 11/28/2011 [facility] N/V Diagnosis Active 2011-12-08 Mem oria INABILITY 11-27 11:14:00 l TO N/V 00:00: Ryde TOLERATE INABILITY 00 PO TO TOLERATE PO Active 2 [facility] VOMITTING, Diagnosis Active 2011-09-18 Memoria HIGH BLOOD 09-17 09:45:00 l SUGAR 00:00: Ryde VOMITTING, 00 HIGH BLOOD SUGAR Active 09/18/2011 [facility] MRSA Problem Active 2012-03-16 Memor ia 3- 09:11:30 l MRSA 00:00: Vin 00 Active 09/01/2011 Problem 03/16/2012 - Elbow [id number] emily added by Discern Expert. 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 [facility] ELBOW Diagnosis Active 2011-09-10 Mem oria ABSCESS/HY - 16:26:00 l PERGLYCEMI ELBOW 00:00: Nidia nn A ABSCESS/HY 00 PERGLYCEMI A Active 08/31/2011 [facility] VOMITING, Diagnosis Active 2011-09-01 Memoria BLOOD 08-30 03:19:00 l SUGAR 00:00: Vin READINGS VOMITING, 00 HIGH BLOOD SUGAR READINGS HIGH Active 08/31/2011 [facility] Hypokalemi Problem Active 2012-03-16 M emoria a 08-22 09:11:30 l 00:00: Vin Hypokalemi 00 a Active 08/23/2011 Problem 03/16/2012 [facility] VOMITING Diagnosis Active 2011-08-19 M emoria 16:21:00 l VOMITING 00:00: Jake n 00 Active 08/19/2011 [facility] DKA Diagnosis Active 2011-08-24 Mem oria 11:27:00 l DKA 00:00: Ryde 00 Active 08/19/2011 [facility] Final: Problem 2016-08-02 Memor ia Acute 02:46:22 l respirator Final: Herm naeem y failure, Acute unspecifie respirator d whether y failure, with unspecifie hypoxia or d whether hypercapni with a hypoxia or hypercapni a 08/02/2016 [facility] Hypoglycem Problem Inactiv 2013-04-22 Memoria ia e 04:46:33 l (disorder) Jake n Hypoglycem ia (disorder) Inactive Problem 04/22/2013 [facility] Hypoglycem Problem Inactiv 2012-03-16 Memoria ia e 09:11:30 l Vin Hypoglycem ia Inactive Problem 03/16/2012 [facility] Diabetes Problem Resolve 2016-08-02 Me moria mellitus d 02:46:22 l (disorder) Diabetes He rmann mellitus (disorder) Resolved Problem 08/02/2016 [facility] Gastropare Problem Resolve 2016-08-02 Memoria sis d 02:46:22 l (disorder) Jake gonzalez Gastropare sis (disorder) Resolved Problem 08/02/2016 [facility] Hypertensi Problem Resolve 2016-08-02 Memoria ve d 02:46:22 l disorder, Vin systemic Hypertensi arterial ve (disorder) disorder, systemic arterial (disorder) Resolved Problem 08/02/2016 [facility] Psychiatri Problem Resolve 2016-08-02 Memoria c d 02:46:22 l behavioral Jake n disability Psychiatri (finding) c behavioral disability (finding) Resolved Problem 08/02/2016 [facility] Seizure Problem Resolve 2016-08-02 Mem oria (finding) d 02:46:22 l Seizure Ryde (finding) Resolved Problem 08/02/2016 [facility] Hypomagnes Problem Active 2013-04-22 M emoria emia 04:46:33 l Vin Hypomagnes emia Active Problem 04/22/2013 [facility] Hypertensi Problem Active 2012-03-16 M emoria on 09:11:30 l Vin Hypertensi on Active Problem 2 [facility] Nausea and Problem Active 2012-03-16 M emoria vomiting 09:11:30 l Nausea Vin and vomiting Active Problem 03/16/2012 [facility] DMI Diagnosis Active 2011-08-24 Mem oria KETOACD 11:27:00 l UNCONTROLD DMI Jake n KETOACD UNCONTROLD Active [facility] OTHER Diagnosis Active 2011-09-10 Mem oria GENERAL 16:26:00 l SYMPTOMS OTHER Vin GENERAL SYMPTOMS Active [facility] HEART Diagnosis Active 2016-06-24 Mem oria FAILURE, 15:35:00 l UNSPECIFIE HEART Nidia nn D FAILURE, UNSPECIFIE D Active [facility] ACUTE Diagnosis Active 2016-09-09 Mem oria RESPIRATOR 09:11:00 l Y FAILURE, ACUTE Nidia nn UNSP W RESPIRATOR HYPOXI Y FAILURE, UNSP W HYPOXI Active [facility] Discharge Problem 2014-06-28 2014-06-28 Memoria Diagnosis: 1- 16:34:37 16:34:37 l Gastropare 06:00: Jake gonzalez sis Discharge 00 Diagnosis: Gastropare sis 06/26/2014 06/28/2014 [facility] History of Past Illness Condition Condition Condition Status Onset Resolution Last Treating Co mments Source Name Details Category Date Date Treatment Clinician Date Nausea and Problem Resolve 2016-08-02 2016-08-02 Memoria vomiting d 6-10 02:46:22 02:46:22 l (disorder) Nausea 00:00: Herm naeem and 00 vomiting (disorder) Resolved 11/29/2011 Problem 08/02/2016 [facility] Hypokalemi Problem Resolve 2016-08-02 2016-08-02 Memoria a d 3-04 02:46:22 02:46:22 l (disorder) 00:00: Jake n Hypokalemi 00 a (disorder) Resolved 08/23/2011 Problem 08/02/2016 [facility] Disorder Problem Resolve 2016-08-02 2016-08-02 Memoria of d 3-04 02:46:22 02:46:22 l magnesium Disorder 00:00: Her braden metabolism of 00 (disorder) magnesium metabolism (disorder) Resolved 08/23/2011 Problem 08/02/2016 [facility] Hyperglyce Problem Resolve 2016-08-02 2016-08-02 Memoria maryam d 3- 02:46:22 02:46:22 l (disorder) 00:00: Jake n Hyperglyce 00 maryam (disorder) Resolved 08/20/2011 Problem 08/02/2016 [facility] Ketoacidos Problem Resolve 2016-08-02 2016-08-02 Memoria is in d 2- 02:46:22 02:46:22 l diabetes 00:00: Vin mellitus Ketoacidos 00 (disorder) is in diabetes mellitus (disorder) Resolved 08/19/2011 Problem 08/02/2016 [facility] DKA Problem Resolve 2013-04-22 2013-04-22 Memoria (diabetic d 2- 04:46:33 04:46:33 l ketoacidos DKA 00:00: Jake n es) (diabetic 00 ketoacidos es) Resolved 08/19/2011 Problem 04/22/2013 [facility] Hyperglyce Problem Inactiv 2012-03-16 2012-03-16 Memoria maryam e 3- 09:11:30 09:11:30 l 00:00: Ryde Hyperglyce 00 maryam Inactive 08/20/2011 Problem 03/16/2012 [facility] Allergies, Adverse Reactions, Alerts Allergy Allergy [...] Comments) 01-03 [facility]: [facility] 00 [place] codeine codeine Active Memoria l Ryde penicill penicill Active Memori a ins ins l Ryde Prolex Prolex Active Memoria DM DM l Vin Ambien Ambien Active Memoria l Ry[place] lisinopr lisinopr Active Memori a il il l Vin Social History Social Habit Start Date Stop Date Quantity Comments Source Sex Assigned At [facility] Cigarettes smoked 2017-12-17 2017-12-17 [facility] - current (pack per 00:00:00 00:00:00 [facility]) - Reported Cigarette 2017-12-17 2017-12-17 [facility] - pack-years 00:00:00 00:00:00 [facility] Alcohol intake 2017-12-17 [facility] [facility] non-drinker of Medical Ce nter alcohol (finding) Tobacco Comment 2017-01-03 2017-01-03 [facility] 00:00:00 she stopped [address] month ago. History of tobacco 2016-12-04 [facility] use [facility] Center Social History 2016-06-11 2016-06-11 [facility] Claudia lainez 04:38:12 04:38:12 Smoking Status Start [...] Medica l 59 Center hydrALAZINE Yes 100mg [id number] Take [address] (APRESOLINE 7-20 [id number] mg by L ukes - ) 100 MG 15:20: 3D mouth 3 Medica l tablet 59 (three) Center times daily. magnesium 2017- Yes 400mg QD Take [address] oxide 7-20 mg by [facility] - (MAG-OX) 15:20: mouth Medical 400 mg 59 daily. Center tablet metoclopram 2017- Yes 10mg [id number] Take [address] gadiel HCl 7-20 [id number] by mouth 3 [facility] - (REGLAN) 10 [...] Vin 00 30 tab, 0 Refill(s), Pharmacy: [facility] [id number] Bumex No 0.5 mg, Memoria 2-09 Route: PO, l 15:00: Drug form: Ryde 00 TAB, Daily, Dosing Weight 92.273, kg, Start date: 07/30/16 9:00:00 DISTRICT ATTORNEY, Duration: 30 day, Stop date: 08/28/16 9:00:00 DISTRICT ATTORNEY Lasix No Notes: Memoria 2-08 (Same as: l 20:05: Lasix) Ryde 00 May cause GI upset. Give with food or milk. Hydralazine No Notes: Mendoza janice 2-08 (Same as: l 06:05: Apresoline Ryde 00 ) Push over 5 minutes sodium 2016- No 1,000 mL, Memori a chloride 2-05 Rate: 125 l 0.9% 1000 18:26: ml/hr, Jake n ml INJ 00 Infuse 1,000 mL over: 8 hr, Route: IV, Dosing Weight 92.273 kg, Total Volume: 1,000, Start date: 07/26/16 12:26:00 DISTRICT ATTORNEY, Duration: 30 day, Stop date: 08/25/16 12:25:00 DISTRICT ATTORNEY Sodium 2017- No 500 mL, Memoria Chloride 2-05 500 ml/hr, l 0.154 13:30: Infuse Ryde MEQ/ML 00 Over: 1 Injectable hr, Route: Solution IV, 500, Drug form: INJ, ONCE, Priority: STAT, Dosing Weight 92.273 kg, Start date: 07/26/16 7:30:00 DISTRICT ATTORNEY, Duration: 1 doses or times, Stop date: 07/26/16 7:30:00 DISTRICT ATTORNEY Insulin No 60 Memoria regular 2-04 units) l 08:39: WASTE: F/P Ryde 00 - Black; E - Municipal Trash Bin Stable for 28 days at room temperatur e Expires in days from ____Date Insulin, No Notes: Memoria Aspart, 2-04 Roll in l Human 07:31: palms of Ryde 00 hands gently; Do not shake vigorously [...] Roll in l Human 03:28: palms of Ryde 00 hands gently; Do not shake vigorously [...] Weight 92.273, kg, Start date: 07/24/16 9:00:00 DISTRICT ATTORNEY, Duration: 30 day, Stop date: 08/22/16 9:00:00 DISTRICT ATTORNEY 24 HR No Notes: Memoria Divalproex 2-03 [...] form: ERTAB, Daily, Start date: 07/24/16 9:00:00 DISTRICT ATTORNEY, Duration: 30 day, Stop date: 08/22/16 9:00:00 DISTRICT ATTORNEY Insulin No Notes: Memoria Glargine 2-03 Same [...] janice 2-03 (Same as: l 14:50: Zofran) Ryde 00 MEDICATION WASTE Product Size: 4 mg Product Wasted: ___ mg Morphine No Notes: Memoria 2-03 (Same l 14:50: as:MORPhin Ryde 00 e Sulfate) Insulin, No Notes: Memoria Aspart, 2-03 Roll in l Human 13:30: palms of Ryde 00 hands gently; Do not shake vigorously . (Same as: NovoLOG) "single patient use only" WASTE: F/P - Black; E - Municipal Trash Bin Stable for 28 days at room temperatur e. Expires in days from ____Date Dilaudid No Notes: Memoria 2-03 Same as l 11:28: Dilaudid Ryde 00 Insulin, No Notes: Memoria Aspart, 2-03 [...] Blood Glucose Results, Start date: 07/24/16 2:40:00 DISTRICT ATTORNEY, Duration: 30 day, Stop date: 08/23/16 2:39:00 DISTRICT ATTORNEY Dextrose No 25 gm, 50 Mendoza janice 50% Syringe 2-03 mL, Route: l 08:40: IVP, Drug Ryde 00 Form: INJ, Dosing Weight 92.273, kg, PRN, PRN Blood Glucose Results, Start date: 07/24/16 2:40:00 DISTRICT ATTORNEY, Duration: 30 day, Stop date: 08/23/16 2:39:00 DISTRICT ATTORNEY Docusate No Notes: Memoria 2-03 (Same as: l 07:20: Colace) Vin 00 (Do Not Crush) Ondansetron No Notes: Mendoza janice 2-03 (Same as: l 07:20: Zofran) Ryde 00 MEDICATION WASTE Product Size: 4 mg Product Wasted: ___ mg Lasix No Notes: Memoria 2-03 (Same as: l 06:01: Lasix) MEDICATION WASTE Product Size: 40 mg Product Wasted: ___ mg Aspirin No Notes: Memoria 2-03 Take with l 05:48: food. Ryde 00 Prednisone No Notes: Memor ia 2-03 Take with l 05:02: food. Vin 00 Albuterol No Notes: Memori a 0.833 MG/ML 07-24 (Same as: l / 04:09: Duoneb) Ryde Ipratropium 00 Manilla 0.167 MG/ML Inhalant Solution [DuoNeb] Furosemide 2015-06 Yes 80 mg = 2 Me moria 40 MG Oral 2-26 tab, PO, l Tablet 16:34: BID, # 120 Nidia nn 00 tab, 0 Refill(s) atorvastati 2015-06 Yes 40 mg = 1 M emoria n 40 mg 2-26 tab, PO, l oral tablet 16:34: Bedtime, # Ryde 00 30 tab, 0 Refill(s) Insulin 2015-06 [...] tab, PO, l Tablet 16:34: Daily, # Ryde 00 30 tab, 0 Refill(s) Hydroxyzine 2015-06 Yes 50 mg = 1 M emoria Hydrochlori 2-26 cap, PO, l de 50 MG 16:34: TID, X 30 Herm naeem Oral 00 day, # 90 Capsule cap, 0 Refill(s) losartan 25 2015-06 Yes 25 mg = 1 M emoria mg oral 2-26 tab, PO, l tablet 16:34: Daily, # Ryde 00 30 tab, 0 Refill(s) Lasix 2015-06 No Notes: Memoria 2-26 (Same as: l 15:00: Lasix) Ryde 00 May cause GI upset. Give with food or milk. Magnesium 2015-06 No Notes: Memori a Oxide 2-24 (Same as: l 13:36: Mag-Ox Ryde 00 400) Magnesium oxide 955eb=186v g elemental magnesium Dose=____m g magnesium oxide (___mg elemental magnesium) Magnesium 2015-06 No Notes: Memori a Oxide 2-24 (Same as: l 09:47: Mag-Ox Vin 00 400) Magnesium oxide 337vq=718h g elemental magnesium Dose=____m g magnesium oxide [...] Memoria 2-24 (Same as: l 00:00: Norvasc) Ryde 00 Insulin 2015-06 No Notes: Memoria Glargine [...] tab, PO, l tablet 15:35: Daily, 0 Ryde 00 Refill(s) pravastatin 2015-06 No 40 mg = 1 M emoria 40 mg oral 2-23 tab, PO, l tablet 15:35: Daily, 0 Ryde 00 Refill(s) Sertraline 2015-06 Yes 200 mg = 2 M emoria 100 MG Oral 2-23 tab, PO, l Tablet 15:27: Daily, 0 Ryde [Zoloft] 00 Refill(s) pantoprazol 2015-06 Yes 40 mg = 1 M emoria e 40 MG 2-23 tab, PO, l Enteric 15:27: Daily, 0 Jake n Coated 00 Refill(s) Tablet [Protonix] gabapentin 2015-06 Yes 1 CAP PO Mem oria 300 MG Oral 2-23 BID AND 1 l Capsule 15:27: CAP AT Ryde 00 BEDTIME, 0 Refill(s) Insulin, 2015-06 No [...] Weight 86.364, kg, Start date: 06/11/16 9:00:00 DISTRICT ATTORNEY, Duration: 30 day, Stop date: 07/10/16 9:00:00 DISTRICT ATTORNEY Insulin 2015-06 No Notes: Memoria Glargine 2-22 [...] sodium, 2-22 porcine l porcine 06:00: heparin Ryde 2500 UNT/ML 00 Injectable Solution Albuterol 2015-06 No Notes: Memori a 0.833 MG/ML -22 (Same as: l / 03:00: Duoneb) Ryde Ipratropium 00 [place] 0.167 MG/ML Inhalant Solution [DuoNeb] gabapentin 2015-06 No 300 mg, Mendoza janice 300 MG Oral 2-22 Route: PO, l Capsule 03:00: Drug form: Herm naeem 00 CAP, Q12H, Dosing Weight 86.364, kg, (CrCl 30 - 59 ml/min), Start date: 06/10/16 21:00:00 DISTRICT ATTORNEY, Duration: 30 day, Stop date: 07/10/16 9:00:00 DISTRICT ATTORNEY divalproex 2015-06 No Notes: Memor ia sodium [...] only" WASTE: F/P - Black; E - SpeedDate Trash Bin Stable for 28 days at room temperatur e. Expires in days from ____Date Dextrose 2015-06 No 12.5 gm, Memor ia 50% Syringe 2-22 25 mL, l 00:50: Route: IVP, Drug Form: INJ, Dosing Weight 86.364, kg, PRN, PRN Blood Glucose Results, Start date: 06/10/16 18:50:00 DISTRICT ATTORNEY, Duration: 30 day, Stop date: 07/10/16 18:49:00 DISTRICT ATTORNEY Glucagon 2015-06 No 1 mg, Memoria 2-22 Route: IM, l 00:50: Drug form: PDR/INJ, PRN, Dosing Weight 86.364, kg, PRN Blood Glucose Results, Start date: 06/10/16 18:50:00 DISTRICT ATTORNEY, Duration: 30 day, Stop date: 07/10/16 18:49:00 DISTRICT ATTORNEY Hydralazine 2015-06 No Notes: Mendoza janice 2-22 [...] Weight 86.364, kg, Start date: 06/10/16 18:06:00 DISTRICT ATTORNEY, Stop date: 06/10/16 18:06:00 DISTRICT ATTORNEY hydrOXYzine 2015-06 No Notes: Mendoza janice pamoate 08-11 (Same as: l 23:00: Vistaril) Furosemide 2015-06 No 60 mg, Memor ia 08-11 Route: l 22:32: IVP, Drug form: INJ, ONCE, Dosing Weight 86.364, kg, Start date: 06/10/16 16:32:00 DISTRICT ATTORNEY, Stop date: 06/10/16 16:32:00 DISTRICT ATTORNEY Lasix 2015-06 No Notes: Memoria - (Same as: l 17:22: Lasix) MEDICATION WASTE Product Size: 40 mg Product Wasted: _0__ mg Albuterol 2015-06 No Notes: Memori a 0.833 MG/ML 08-11 (Same as: 17:22: Duoneb) Ipratropium 00 [place] 0.167 MG/ML Inhalant Solution [DuoNeb] Promethazin Yes 25 mg = 1 M emoria e 06-26 supp, RI, l Hydrochlori 14:45: Q6H, Jake gonzalez de [...] Rate: 125 l 0.9% IV 04:10: ml/hr, Ryde 1,000 mL 00 Infuse over: 8 hr, [...] Marx Rate: 500 l 0.9% 23:45: ml/hr, Ryde (Bolus) IV 00 Infuse 500 mL over: [...] insulin No Blake 10 unit, Mem oria 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 6-11 Deangelo 0.1 mL, l H 02:00: Route: Vin 00 SUB-Q, Drug form: INJ, Bedtime, Start date: 11/29/11 21:00:00, Duration: 30 day, Stop date: 12/28/11 21:00:00 Insulin No Blake 8 unit, Mendoza janice regular 6-11 Deangelo 0.08 mL, l 02:00: Route: Ryde SUB-Q, Drug form: SOLN, Bedtime, Start date: [...] 6-10 Omidvar Route: l 21:33: IVP, ONCE, Ryde 00 Start date: 11/29/11 16:33:00, Stop date: [...] 2011- No Blake 14 unit, Mem oria 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 6-10 Deangelo 0.14 mL, l H 14:00: Brisa Route: Ryde SUB-Q, Drug form: INJ, Daily, Start date: 11/29/11 9:00:00, Duration: 30 day, Stop date: 12/28/11 9:00:00 Insulin 2011-0 No Blake 10 unit, Mem oria regular 6-10 Deangelo 0.1 mL, l 14:00: Brisa Route: Ryde 00 SUB-Q, Drug form: SOLN, Daily, Start [...] 6-10 Deangelo 0.1 mL, l 06:30: Route: Ryde 00 SUB-Q, Drug form: SOLN, TID-Before Meals, [...] mL, Route: l 04:01: Brown IVP, Drug Ryde 00 form: INJ, ONCE, Priority: STAT, Start date: 11/28/11 23:01:00, Stop date: 11/28/11 23:01:00 Zofran No Nikki 4 mg, 2 Mendoza janice 6-10 Sarah mL, Route: l 02:31: Brown IVP, Drug Ryde 00 form: INJ, ONCE, Priority: STAT, Start date: 11/28/11 21:31:00, Stop date: 11/28/11 21:31:00 NS (Bolus) No Arif Domenico 1,000 mL, Memoria IV 1,000 mL 11-27 Rate: l 22:48: 1,000 Ryde 00 ml/hr, Infuse over: 1 hr, Route: [...] 6-09 mL, Route: l 20:35: IVP, Drug Ryde 00 form: INJ, ONCE, Priority: STAT, Start date: 11/28/11 15:35:00, Stop date: 11/28/11 15:35:00 Novolin R Yes Hughes-Jason 8 unit, M emoria 100 3-30 Jordan SUB-Q, l units/mL 17:47: Dawson Q12H, 2 He rmann injectable 42 Pu vial, solution Substituti on Allowed, SOLN Novolin N Yes Hughes-Jason 10 unit, Memoria 100 3-30 Jordan SUB-Q, l units/mL 17:46: Dawson Bedtime, H ermann subcutaneou 27 Pu 10 ml, s injection Substituti on Allowed, SUSP Novolin N Yes Hughes-Jason 14 unit, Memoria 100 3-30 Jordan SUB-Q, l units/mL 17:44: Eunice QAM, 1 Her braden subcutaneou 37 Pu vial, s injection Substituti on Allowed, SUSP magnesium No Hughes-Jason 400 mg, 1 Memoria oxide 3-30 Jordan tab, l 14:55: Dawson Route: PO, Her braden 00 Pu Drug form: TAB, ONCE, Priority: STAT, Start date: 09/18/11 9:55:00, Stop date: 09/18/11 9:55:00 Insulin No Hughes-Jason 8 unit, Mem oria regular 3-30 Jordan 0.08 mL, l 14:22: Eunice Route: Vin 00 Pu SUB-Q, Drug form: SOLN, ONCE, Priority: STAT, Start date: 09/18/11 9:22:00, Stop date: 09/18/11 9:22:00 Lactated No Hughes-Jason 1,000 mL, Memoria Ringers - Jordan Rate: l (Bolus) IV 14:16: Eunice 1,000 He rmann 1,000 mL 00 Pu ml/hr, Infuse over: 1 hr, Route: IV, Total Volume: 1,000, Bolus Dose, Priority: STAT, Start date: 09/18/11 9:16:00, Duration: 1 doses or times, Stop date: 09/18/11 10:15:00 Sodium No Hughes-Jason 1,000 mL, Me moria Chloride 3-30 Jordan Rate: l 0.9% 14:06: Eunice 1,000 Vin (Bolus) IV 00 Pu ml/hr, 1000 mL Infuse over: 1 hr, Route: IV, kg, Total Volume: 1,000, Bolus Dose, Priority: STAT, Start date: 09/18/11 9:06:00, Duration: 1 doses or times, Stop date: 09/18/11 10:05:00 sulfamethox 2011- Yes Substituti Memoria azole 3-30 on Allowed l 14:04: Ryde 58 Sodium No Hughes-Jason 1,000 mL, Me moria Chloride 3-30 Jordan Rate: l 0.9% 13:56: Dawson 1,000 Vin [...] 3-21 Amelia cap, PO, l capsule 18:47: Newton BID, 60 Her braden 19 cap, Substituti on Allowed, CAP clindamycin Yes Luna 300 mg, 2 Memoria 150 mg oral 3-21 Amelia cap, PO, l capsule 18:46: Zeeshan Q8H, 30 Her braden 55 cap, Substituti on Allowed, CAP [place] Yes Luna 1 tab, PO, Memoria 10/325 oral 3-21 Amelia Q4H, PRN, l tablet 18:46: Newton 30 tab, Herm naeem 36 Pain, Substituti on Allowed, Maintenanc e, TAB [place] No Hollie Donavan 1 tab, Mendoza janice [...] moria 3-19 Josefina 0.1 mL, l 14:19: [place] Route: Vin IVP, Drug form: INJ, Q2MIN, PRN Narcotic Reversal, Start date: 09/07/11 9:19:00, Duration: 8 doses or times, Stop date: Limited # of times ondansetron No Gayle 4 mg, 2 Memoria 3-19 Josefina mL, Route: l 14:19: [place] IVP, Drug Jake n 00 form: INJ, ONCE, PRN Nausea & Vomiting, Start date: 09/07/11 9:19:00 hydromorpho No Gayle 0.5 mg, Memoria ne - Josefina 0.25 mL, l 14:19: [place] Route: Vin 00 IVP, Drug form: INJ, [...] Rate: 125 l 1,000 mL 14:06: ml/hr, Ryde 00 Infuse over: 8 hr, Route: IV, Dosing Weight 68.182 kg, Total Volume: 1,000, Start date: 09/07/11 9:06:00, Duration: 30 day, Stop date: 10/07/11 9:05:00 clindamycin No Maximo R 600 mg, Memoria 3-19 Arias Route: l 13:31: IVPB, Ryde 00 ONCE, Start date: 09/07/11 8:31:00, Stop [...] 3-17 Omidvar tab, l 14:11: Route: PO, Ryde 00 Drug form: ERTAB, ONCE, Start date: [...] Duration: 30 day, Stop date: 10/04/11 18:10:00 [place] 2012-0 No Mahammad 1 tab, Memori a [...] Kavon mL, Route: l 14:50: IVP, Drug Ryde 00 form: INJ, ONCE, PRN Nausea & Vomiting, Start date: 09/04/11 9:50:00, Duration: 1 doses or times, Stop date: Limited # of times ropivacaine No Rosalino Dosing: Memoria 0.2% in NS 3-16 Kavon 10cc/hr, l - site 1 14:50: Route: Ryde 400 mL 00 NERVE BLOCK, Start date: 09/04/11 9:50:00 400 mL, Duration: 30 day, Stop date: 10/04/11 9:49:00 naloxone No Rosalino 0.04 mg, Me moria 3-16 Kavon 0.1 mL, l 14:50: Route: Ryde 00 IVP, Drug form: INJ, Q2MIN, PRN Narcotic Reversal, Start date: 09/04/11 9:50:00, Duration: 30 day, Stop date: 10/04/11 9:49:00 [place] No [place] 1 tab, Memoria 10/325 oral -16 Omidvar Route: PO, l tablet 14:49: Drug Form: Nidia nn 00 TAB, Q4H, PRN Pain, Start date: 09/04/11 9:49:00, Stop date: 10/04/11 9:48:00 labetalol No Gregory F 5 mg, Mendoza janice 3-16 Puga Route: IV, l 14:40: ONCE, Ryde 00 Start date: 09/04/11 9:40:00, Stop date: 09/04/11 9:40:00 ondansetron No Hollie 4 mg, 2 Me moria 3-16 Beck mL, Route: l 13:37: Hayden IVP, Drug Nidia nn 00 form: INJ, ONCE, PRN Nausea & Vomiting, Start date: 09/04/11 8:37:00 naloxone No Hollie 0.04 mg, Mendoza janice 3-16 Beck 0.1 mL, l 13:37: Hayden Route: Ryde 00 IVP, Drug form: INJ, Q2MIN, PRN [...] 3-16 Kavon 0.25 mL, l 13:37: Route: Ryde 00 IVP, Drug form: INJ, Q5Min, PRN [...] date: 09/03/11 8:39:00, Stop date: 09/03/11 8:39:00 Dacono 5/325 2011-0 No Rosalino 1 tab, M [...] Duration: 30 day, Stop date: 10/02/11 9:00:00 Dacono 5/325 2011- No Rosalino 1 tab, M [...] 3-14 Anabelle Route: l 14:00: IVPB, Drug Ryde 00 form: INJ, [id number], Start date: 09/02/11 9:00:00, Duration: 30 day, Stop date: 10/01/11 21:00:00 clindamycin 2011-0 No Eber L 600 mg, 4 Memoria (SCIP) 3-14 Anabelle mL, Route: l 10:00: IVPB, Ryde 00 [id number], Start date: 09/02/11 5:00:00, Duration: 3 doses or times, Stop date: 09/02/11 21:00:00 clindamycin 2011- No Yury 600 mg, 4 Memoria (SCIP) 3-14 Silverio mL, Route: l 04:00: Connally IVPB, Ryde 00 [id number], Start date: 09/01/11 23:00:00, Duration: 3 doses or times, Stop date: 09/02/11 15:00:00 insulin 2011-0 No Bismakr 15 unit, Mendoza janice 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 3-14 Omidvar 0.15 mL, l H 02:00: Route: Vin 00 SUB-Q, Drug form: INJ, Q12H, Start date: 09/01/11 21:00:00, Stop date: 10/01/11 9:00:00 labetalol No Mariaelena-Corea 5 mg, Me moria 3-14 Barbra Route: l 01:07: Feliciano IVP, Ryde 00 Q5Min, PRN Elevated BP, Start date: [...] 3-14 Barbra Route: l 01:07: Feliciano IVP, Ryde 00 Q2MIN, PRN Narcotic Reversal, Start date: 09/01/11 20:07:00, Duration: 8 doses or times, Stop date: Limited # of times flumazenil No Mariaelena-Corea 0.2 mg, Memoria 3-14 Barbra Route: l 01:07: Feliciano IVP, PRN, Ryde PRN Benzodiaze pine Reversal, Initial dose, Start date: 09/01/11 20:07:00, Duration: 30 day, Stop date: 10/01/11 20:06:00 ondansetron No Mariaelena-Corea 4 mg, Memoria 3-14 Barbra Route: l 01:07: Feliciano IVP, ONCE, Ryde 00 PRN Nausea & Vomiting, Start date: 09/01/11 20:07:00 vancomycin No Mele 1 gm, Mem oria 3-14 Gauvain Route: l 01:00: IVPB, Drug form: INJ, [id number], Start date: 09/01/11 20:00:00, Duration: 30 day, [...] Route: l 00:00: IVPB, Drug form: INJ, [id number], Start date: 09/01/11 19:00:00, Duration: 30 day, Stop date: 10/01/11 7:00:00 insulin 2011-0 No Missael 6 unit, Memori a aspart 3-13 Movva 0.06 mL, l 23:23: Route: Ryde 00 SUB-Q, Drug form: SOLN, TID-Before Meals, [...] Beni mL, Route: l 21:14: IVP, Drug Ryde form: INJ, Q4H, PRN Severe Pain, Start [...] Sulfate 3-13 Madden mL, Route: l 17:13: Guridner IVP, Drug Jake n 00 form: INJ, [...] Madden 0.08 mL, l 15:28: Gurinder Route: Ryde 00 SUB-Q, Drug form: SOLN, ONCE, Priority: STAT, Start date: 09/01/11 10:28:00, Stop date: 09/01/11 10:28:00 Sodium 2011-0 No Enid 1,000 mL, Memori a Chloride 3-13 Madden Rate: l 0.9% 14:53: Gurinder 1,000 Ryde (Bolus) IV 00 ml/hr, 1,000 mL Infuse [...] No Bee L 4 mg, Memoria - [place] Route: l 09:06: IVP, Drug Vin 00 [...] L 8 unit, Me moria regular 08-31 [place] 0.08 mL, l 08:30: Route: Ryde 00 IVP, Drug form: SOLN, ONCE, Priority: STAT, Start date: 09/01/11 3:30:00, Stop date: 09/01/11 3:30:00 Sodium 2011-0 No Bee L 1,000 mL, M emoria Chloride - [place] Rate: l 0.9% 07:29: 1,000 Ryde (Bolus) IV 00 ml/hr, 1,000 mL Infuse over: 1 hr, Route: IV, Dosing Weight 68.182 kg, Total Volume: 1,000, Bolus Dose, Priority: STAT, Start date: 09/01/11 2:29:00, Duration: 1 doses or times, Stop date: 09/01/11 3:28:00 potassium No Velásquez Noam 40 mEq, 2 Memoria chloride 3-04 Akmal tab, l 15:00: Route: PO, Ryde 00 Drug form: ERTAB, BID, Start date: [...] Allowed, before breakfast lunch and dinner, [facility] breakfast lunch and dinner potassium No Velásquez Noam 20 mEq, Memoria chloride 3-04 Akmal 100 mL, l 14:00: Route: Ryde 00 IVPB, Drug form: INJ, Q2H, Start date: 08/23/11 8:00:00, Duration: 2 doses or times, Stop date: 08/23/11 10:00:00 calcium 2011-0 No Velásquez Noam 1 gm, Mem oria chloride 3-04 Akmal Route: l 13:28: IVPB, Ryde 00 ONCE, Priority: STAT, Start date: 08/23/11 [...] Akmal mL, Route: l 12:26: IVPB, Drug Ryde form: INJ, ONCE, Total dose = 2 [...] Akmal mL, Route: l 13:26: IVPB, Drug Ryde form: INJ, ONCE, Total dose = 2 [...] 3-02 Akmal tab, l 15:00: Route: PO, Ryde 00 Drug form: TAB, Daily, Start date: [...] 2011-0 No Yury 10 unit, Mem oria 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 3- Gato Route: l H 16:00: Rivero [...] tab, PO, l tablet 15:35: BID, 60 Ryde 25 tab, Substituti on Allowed, TAB Geodon 60 Yes 120 mg, 2 Mem oria mg oral 3- cap, PO, l capsule 15:35: Bedtime, Jake n 12 60 cap, Substituti on Allowed, CAP insulin No Yury 10 unit, Mem oria 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 3- Gato Route: l H 15:00: Rivero [...] regular - Akmal SUB-Q, l 09:28: BID, Ryde 23 Substituti on Allowed insulin 2011- No 10 unit, Memori a 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 3- SUB-Q, l H 09:26: BID, Vin 18 Substituti on Allowed NS 1,000 mL No Velásquez Noam 1,000 mL, Memoria 08-19 Akmal Rate: 150 l 09:06: ml/hr, Ryde 00 Infuse over: 6.7 hr, Route: IV, [...] 2011- No Yury 18 unit, Mem oria 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 3-01 Gato 0.18 mL, l H 08:58: [...] No Hughes-Jason 4 mg, M emoria 08-19 Jordan Route: l 07:42: Dawson IVP, Drug Herm naeem 00 Pu form: INJ, ONCE, Priority: STAT, Start date: 08/20/11 1:42:00, Stop date: 08/20/11 1:42:00 GI cocktail 2011- No Hughes-Jason 30 ml, Memoria 08-19 Jordan Route: PO, l 05:12: Drug Form: Her braden 00 Pu SUSP, ONCE, STAT, Start date: 08/19/11 23:12:00, Stop date: 08/19/11 23:12:00 ondansetron No Hughes-Jason 4 mg, M emoria 08-19 Jordan Route: PO, l 05:10: Drug form: Her braden 00 Pu TABDIS, ONCE, Priority: STAT, Start date: 08/19/11 23:10:00, Stop date: 08/19/11 23:10:00 Lactated No Hughes-Jason 1,000 mL, Memoria Ringers 08-19 Jordan Rate: l (Bolus) IV 05:10: Dawson 1,000 He rmann 1000 mL 00 Pu ml/hr, Infuse over: 1 hr, Route: IV, Total Volume: 1,000, Bolus Dose, Priority: STAT, Start date: 08/19/11 23:10:00, Duration: 1 doses or times, Stop date: 08/20/11 0:09:00 Insulin No Hughes-Jason 7 unit, Mem oria regular 08-19 Jordan 0.07 mL, l 04:15: Route: Ryde 00 Pu SUB-Q, Drug form: SOLN, ONCE, Priority: STAT, Start date: 08/19/11 22:15:00, Stop date: 08/19/11 22:15:00 Geodon 60 No Yury 60 mg, 1 M emoria mg oral 2-29 Gato cap, PO, l capsule 23:24: Rivero BID, 180 Ryde 43 cap, Substituti on Allowed, CAP trazodone No 300 mg, 1 Mem oria 300 mg oral 2-29 tab, PO, l tablet 23:23: Bedtime, Ryde 58 15 tab, Substituti on Allowed, TAB [...] Systolic (mm Hg) 2016-07-30 14:00:00 Mendoza rial Ryde Diastolic (mm Hg) 2016-07-30 14:00:00 Mem orial Ryde Respitory Rate 2016-07-30 14:00:00 Memori al Ryde Heart Rate 2016-07-30 14:00:00 Memorial Vin Temperature Oral (F) 2016-07-30 14:00:00 97.4 F [facility] Ryde Systolic (mm Hg) 2016-07-30 10:45:00 Mendoza rial Vin Diastolic (mm Hg) 2016-07-30 10:45:00 Mem orial Vin Heart Rate 2016-07-30 10:45:00 [facility] Ryde Temperature Oral (F) 2016-07-30 10:45:00 97.2 F [facility] Ryde Respitory Rate 2016-07-30 10:45:00 Memori al Ryde Heart Rate 2016-07-30 06:35:00 Memorial Vin Temperature Oral (F) 2016-07-30 06:35:00 97.0 F [facility] Ryde Respitory Rate 2016-07-30 06:35:00 Memori al Vin Systolic (mm Hg) 2016-07-30 06:35:00 Mendoza rial Vin Diastolic (mm Hg) 2016-07-30 06:35:00 Mem orial Ryde Weight 2016-07-24 02:13:00 Memorial Vin BMI Calculated 2016-07-24 02:13:00 Memori al Ryde Height 2016-07-24 02:13:00 160.02 cm [facility] Ryde Respitory Rate 2016-06-15 15:00:00 Memori al Vin Systolic (mm Hg) 2016-06-15 15:00:00 Mendoza rial Vin Diastolic (mm Hg) 2016-06-15 15:00:00 Mem orial Vin Respitory Rate 2016-06-15 14:00:00 Memori al Vin Systolic (mm Hg) 2016-06-15 14:00:00 Mendoza rial Ryde Diastolic (mm Hg) 2016-06-15 14:00:00 Mem orial Vin Respitory Rate 2016-06-15 13:29:00 Memori al Vin Systolic (mm Hg) 2016-06-15 13:29:00 Mendoza rial Ryde Diastolic (mm Hg) 2016-06-15 13:29:00 Mem orial Ryde Temperature Oral (F) 2016-06-14 10:56:00 97.1 F Memorial Vin Temperature Oral (F) 2016-06-14 06:55:00 97.1 F [facility] Ryde Temperature Oral (F) 2016-06-12 10:00:00 96.8 F [facility] Vin Weight 2016-06-11 04:25:00 [facility] Ry[place] Height 2016-06-11 04:25:00 160.02 cm [facility] Ryde BMI Calculated 2016-06-11 04:25:00 Memori al Ryde Heart Rate 2016-06-11 02:04:00 Memorial Vin Heart Rate 2016-06-11 00:00:00 Memorial Vin Heart Rate 2016-06-10 20:30:00 [facility] Vin Weight 2016-06-10 16:04:00 Memorial Vin BMI Calculated 2016-06-10 16:04:00 Memori al Vin Height 2016-06-10 16:04:00 160.02 cm Memorial Vin Temperature Oral (F) 2014-06-26 15:12:00 98.0 F [facility] Ryde Systolic (mm Hg) 2014-06-26 15:12:00 Mendoza rial Vin Heart Rate 2014-06-26 15:12:00 Memorial Vin Diastolic (mm Hg) 2014-06-26 15:12:00 Mem orial Ryde Respitory Rate 2014-06-26 15:12:00 Memori al Vin Systolic (mm Hg) 2014-06-26 13:53:00 Mendoza rial Ryde Diastolic (mm Hg) 2014-06-26 13:53:00 Mem orial Vin Respitory Rate 2014-06-26 13:53:00 Memori al Vin Temperature Oral (F) 2014-06-26 13:53:00 98.0 F [facility] Ryde Temperature Oral (F) 2014-06-26 12:37:00 98.2 F [facility] Ry[place] Respitory Rate 2014-06-26 12:37:00 Memori al Vin Systolic (mm Hg) 2014-06-26 12:37:00 Mendoza rial Vin Diastolic (mm Hg) 2014-06-26 12:37:00 Mem orial Ryde Heart Rate 2014-06-26 09:21:00 [facility] Ry[place] Heart Rate 2014-06-26 06:08:00 Memorial Vin Height 2014-06-26 05:35:00 154.94 cm [facility] Ryde Weight 2014-06-26 05:35:00 Memorial Vin BMI Calculated 2014-06-26 05:35:00 Memori al Ryde Respitory Rate 2013-04-15 06:10:00 Memori al Ryde Diastolic (mm Hg) 2013-04-15 06:10:00 Mem orial Vin Heart Rate 2013-04-15 06:10:00 [facility] Ryde Systolic (mm Hg) 2013-04-15 06:10:00 Mendoza rial Vin Temperature Oral (F) 2013-04-15 06:10:00 98.7 F [facility] Vin Respitory Rate 2013-04-15 05:37:00 Memori al Vin Diastolic (mm Hg) 2013-04-15 05:37:00 Mem orial Ryde Systolic (mm Hg) 2013-04-15 05:37:00 Mendoza rial Vin Temperature Oral (F) 2013-04-15 05:37:00 98.2 F [facility] Ry[place] Heart Rate 2013-04-15 05:37:00 [facility] Ry[place] Height 2013-04-15 02:06:00 160.02 cm [facility] Ryde Weight 2013-04-15 02:06:00 Memorial Vin Temperature Oral (F) 2013-04-15 02:06:00 98.6 F [facility] Ry[place] Respitory Rate 2013-04-15 02:06:00 Memori al Ryde Heart Rate 2013-04-15 02:06:00 [facility] Ryde Diastolic (mm Hg) 2013-04-15 02:06:00 Mem orial Ryde Systolic (mm Hg) 2013-04-15 02:06:00 Mendoza rial Ryde Weight 2012-03-14 21:33:00 Memorial Ryde Systolic (mm Hg) 2011-12-01 00:33:00 Mendoza rial Ryde Respitory Rate 2011-12-01 00:33:00 Memori al Vin Heart Rate 2011-12-01 00:33:00 Memorial Vin Diastolic (mm Hg) 2011-12-01 00:33:00 Mem orial Ryde Temperature Oral (F) 2011-12-01 00:33:00 99.6 F Memorial Vin Diastolic (mm Hg) 2011-11-30 21:00:00 Mem orial Ryde Heart Rate 2011-11-30 21:00:00 [facility] Ryde Respitory Rate 2011-11-30 21:00:00 Memori al Ryde Systolic (mm Hg) 2011-11-30 21:00:00 Mendoza rial Ryde Temperature Oral (F) 2011-11-30 21:00:00 99.8 F [facility] Ryde Respitory Rate 2011-11-30 16:30:00 Memori al Vin Systolic (mm Hg) 2011-11-30 16:30:00 Mendoza rial Ryde Diastolic (mm Hg) 2011-11-30 16:30:00 Mem orial Ryde Heart Rate 2011-11-30 16:30:00 Memorial Vin Temperature Oral (F) 2011-11-30 16:30:00 99.8 F [facility] Ry[place] Weight 2011-11-29 11:40:00 Memorial Vin Height 2011-11-29 11:40:00 157.48 cm Memorial Ryde Weight 2011-11-28 17:16:00 [facility] Ryde Weight 2011-09-18 13:30:00 Memorial Ryde Height 2011-09-18 13:30:00 154.94 cm Memorial Vin Heart Rate 2011-09-09 13:31:00 [facility] Ryde Systolic (mm Hg) 2011-09-09 13:02:00 Mendoza rial Ryde Diastolic (mm Hg) 2011-09-09 13:02:00 Mem orial Ryde Respitory Rate 2011-09-09 13:02:00 Memori al Ryde Temperature Oral (F) 2011-09-09 13:02:00 97.5 F Memorial Vin Diastolic (mm Hg) 2011-09-09 08:00:00 Mem orial Vin Heart Rate 2011-09-09 08:00:00 [facility] Ryde Temperature Oral (F) 2011-09-09 08:00:00 98.6 F Memorial Vin Respitory Rate 2011-09-09 08:00:00 Memori al Vin Systolic (mm Hg) 2011-09-09 08:00:00 Mendoza rial Ryde Respitory Rate 2011-09-09 04:55:00 Memori al Ryde Diastolic (mm Hg) 2011-09-09 04:55:00 Mem orial Vin Systolic (mm Hg) 2011-09-09 04:55:00 Mendoza rial Ryde Heart Rate 2011-09-09 04:55:00 Memorial Vin Temperature Oral (F) 2011-09-09 00:55:00 98.7 F [facility] Ryde Weight 2011-09-01 19:59:00 Memorial Vin Height 2011-09-01 19:59:00 154.94 cm [facility] Ryde Height 2011-09-01 07:01:00 154.94 cm [facility] Ryde Weight 2011-09-01 07:01:00 Memorial Vin Respitory Rate 2011-08-23 18:00:00 Memori al Vin Heart Rate 2011-08-23 18:00:00 Memorial Vin Systolic (mm Hg) 2011-08-23 18:00:00 Mendoza rial Vin Diastolic (mm Hg) 2011-08-23 18:00:00 Mem orial Ryde Temperature Oral (F) 2011-08-23 18:00:00 97.7 F Memorial Vin Heart Rate 2011-08-23 14:24:00 Memorial Vin Temperature Oral (F) 2011-08-23 14:24:00 98.2 F Memorial Vin Diastolic (mm Hg) 2011-08-23 14:24:00 Mem orial Ryde Systolic (mm Hg) 2011-08-23 14:24:00 Mendoza rial Vin Respitory Rate 2011-08-23 14:24:00 Memori al Vin Systolic (mm Hg) 2011-08-23 11:15:00 Mendoza rial Ryde Diastolic (mm Hg) 2011-08-23 11:15:00 Mem orial Ryde Temperature Oral (F) 2011-08-23 11:00:00 98.3 F [facility] Ryde Heart Rate 2011-08-23 11:00:00 [facility] Ryde Respitory Rate 2011-08-22 22:00:00 Memori al Ryde Height 2011-08-20 09:12:00 154.94 cm [facility] Ryde Weight 2011-08-20 09:12:00 Memorial Vin Height 2011-08-19 20:28:00 154.94 cm [facility] Ryde Weight 2011-08-19 20:28:00 Memorial Vin Procedures Procedure Date / Time Performed Performing Clinician [facility] e Emergency department visit 2013-04-15 05:00:00 M emorial Vin for the evaluation and management of a patient, which requires these 3 kamara components within the constraints imposed by the urgency of the patient's clinical condition and/or mental status: A comprehensive history; A comprehensi Injection or Infusion of 2013-04-15 05:00:00 Mem orikatya Banuelos Other Therapeutic or Prophylactic Substance Intravenous infusion, 2013-04-15 05:00:00 Brandon al Ryde hydration; each additional hour (List separately in [...] intravenous push, single or initial substance/drug section [facility] Jake n Tubal ligation [facility] Encounters Start End Encounter Admission Attending Care Care Encounter Source Date/Time Date/Time Type Type Clinicians Facility Department ID 2020-05-28 2020-05-28 Laboratory Pc, Adc [facility] [id number] 08::11 08:48:06 Only Echo Room 1 [place] [id number] [facility] [id number] [place] [id number] nal 059 [facility] 2020-04-25 2020-04-25 Office Marshall [facility] [id number] 15 10:07:58 10:48:50 Visit Oz DoshiJose FClaudiaJose F Sims [id number] [place] [id number] 059 [facility] 2020-01-25 2020-01-31 Inpatient 1 Rei Waldron [facility] GPY 12 [id number] [facility] 21:31:00 18:15:00 Rei Waldron 2016-07-23 2016-07-30 Outpatient Yaquelin [facility] [id number] 20:04:00 10:20:00 Luna 10 2016-06-10 2016-06-15 Outpatient Franck [facility] [id number] 10:02:00 12:23:00 Joe Yan 09 2014-06-25 2014-06-26 Outpatient Courtney ANA IE [id number] 23:25:00 09:14:00 Atul 08 Cem 2013-04-14 2013-04-15 Outpatient [place] [id number] Memoria 21:04:00 01:45:00 07 [facility] 2013-04-14 2013-04-15 Outpatient IE IE [id number] Memoria 21:04:00 01:45:00 07 [facility] 2013-04-14 2013-04-15 Outpatient IE IE [id number] Memoria 21:04:00 01:45:00 07 [facility] 2013-04-14 2013-04-15 [id number] Memoria 21:04:00 01:45:00 07 [facility] 2013-04-14 2013-04-15 [facility] [id number] Memoria 21:04:00 01:45:00 07 [facility] Results Test Description Test Time Test Comments [...] the main Lab for analysi s. Urine [id number] 11:32:13 Test Item Value Reference Range Interpretation [...] Escherichia coli C Urine Added by [id number] 07:52:10 Test Item Value Reference Range Interpretation Comments Glucose POC (test 160 mg/dL 70-115 H If you con demolitionist your code = Glucose POC) patient critically ill, the Merlin-Accu Check Infrom II meter should not be used for Glucose determination. Draw a venous Glucose and send to the main Lab for analysis. POC [id number] 19:32:05 Test Item Value Reference Range Interpretation Comments Glucose POC (test 184 mg/dL 70-115 H If you con demolitionist your code = Glucose POC) patient critically ill, the Merlin-Accu Check Infrom II meter should not be used for Glucose determination. Draw a venous Glucose and send to the main Lab for analysis. POC [id number] 17:16:35 Test Item Value Reference Range Interpretation Comments Glucose POC (test 281 mg/dL 70-115 H Notify RN or MDIf you code = Glucose POC) consider your patient critically ill, the Merlin-Accu Chec k Infrom II meter should not be used for Glucos e determination. Draw a venous Glucose and send to the main Lab for analysis. POC [id number] 12:00:38 Test Item Value Reference Range Interpretation Comments Glucose POC (test 138 mg/dL 70-115 H Notify RN or MDIf you code = Glucose POC) consider your patient critically ill, the Merlin-Accu Chec k Infrom II meter should not be used for Glucos e determination. Draw a venous Glucose and send to the main Lab for analysis. POC [id number] 07:41:32 Test Item Value Reference Range Interpretation Comments Glucose POC (test 206 mg/dL 70-115 H Notify RN or MDIf you code = Glucose POC) consider your patient critically ill, the Merlin-Accu Chec k Infrom II meter should not be used for Glucos e determination. Draw a venous Glucose and send to the main Lab for analysis. Urinalysis [id number] 21:07:21 Test Item Value Reference Range Interpretation Comments UA WBC (test code = UA WBC) TNTC 0-5 A UA RBC (test code = UA RBC) 6-10 0-5 A UA Bacteria (test code = UA Bacteria) Profuse A UA Squam Epithelial (test code = UA 6-10 A Squam Epithelial) Urinalysis with Culture, if [id number] 20:35:14 Test Item Value Reference Range Interpretation [...] Micro Indicated Not Indicated A Ind?) POC [id number] 19:06:34 Test Item Value Reference Range Interpretation Comments Glucose POC (test 207 mg/dL 70-115 H If you con demolitionist your code = Glucose POC) patient critically ill, the Merlin-Accu Check Infrom II meter should not be used for Glucose determination. Draw a venous Glucose and send to the main Lab for analysis. POC [id number] 17:12:03 Test Item Value Reference Range Interpretation Comments Glucose POC (test 173 mg/dL 70-115 H Notify RN or MDIf you code = Glucose POC) consider your patient critically ill, the Merlin-Accu Chec k Infrom II meter should not be used for Glucos e determination. Draw a venous Glucose and send to the main Lab for analysis. POC [id number] 11:58:01 Test Item Value Reference Range Interpretation Comments Glucose POC (test 289 mg/dL 70-115 H Notify RN or MDIf you code = Glucose POC) consider your patient critically ill, the Merlin-Accu Chec k Infrom II meter should not be used for Glucos e determination. Draw a venous Glucose and send to the main Lab for analysis. POC [id number] 08:19:37 Test Item Value Reference Range Interpretation Comments Glucose POC (test 201 mg/dL 70-115 H Notify RN or MDIf you code = Glucose POC) consider your patient critically ill, the Merlin-Accu Chec k Infrom II meter should not be used for Glucos e determination. Draw a venous Glucose and send to the main Lab for analysis. POC [id number] 20:37:35 Test Item Value Reference Range Interpretation Comments Glucose POC (test 272 mg/dL 70-115 H If you con demolitionist your code = Glucose POC) patient critically ill, the Merlin-Accu Check Infrom II meter should not be used for Glucose determination. Draw a venous Glucose and send to the main Lab for analysis. POC [id number] 17:23:05 Test Item Value Reference Range Interpretation Comments Glucose POC (test 229 mg/dL 70-115 H If you con demolitionist your code = Glucose POC) patient critically ill, the Merlin-Accu Check Infrom II meter should not be used for Glucose determination. Draw a venous Glucose and send to the main Lab for analysis. POC [id number] 12:01:01 Test Item Value Reference Range Interpretation Comments Glucose POC (test 155 mg/dL 70-115 H If you con demolitionist your code = Glucose POC) patient critically ill, the Merlin-Accu Check Infrom II meter should not be used for Glucose determination. Draw a venous Glucose and send to the main Lab for analysis. POC [id number] 08:07:32 Test Item Value Reference Range Interpretation Comments Glucose POC (test 248 mg/dL 70-115 H If you con demolitionist your code = Glucose POC) patient critically ill, the Merlin-Accu Check Infrom II meter should not be used for Glucose determination. Draw a venous Glucose and send to the main Lab for analysis. IG [id number] 06:50:39 Test Item Value Reference Range Interpretation Comments IG (test code = IG) 0.7 % 0.0-5.0 IG Abs (test code = IG Abs) 0 x10 N Complete Blood Count with [id number] 06:50:38 Test Item Value Reference Range Interpretation [...] code = IPF) 0 % N Automated [id number] 06:50:38 Test Item Value Reference Range Interpretation Comments Neutro Auto (test code = Neutro 50.3 % 36.0-70.0 Auto) Lymph Auto (test code = Lymph Auto) 38.6 % 12.0-44.0 Shasta Auto (test code = Shasta Auto) 7.3 % 0.0-11.0 Eos, Auto (test code = Eos, Auto) 2.4 % 0.0-7.0 Basophil Auto (test code = Basophil 0.7 % 0.0-2.0 Auto) Neutro Absolute (test code = Neutro 3.0 x10 1.6-7.4 Absolute) Lymph Absolute (test code = Lymph 2.28 x10 .50-4.60 Absolute) Shasta Absolute (test code = Shasta .43 x10 .00-1.20 Absolute) Eos Absolute (test code = Eos 0.14 x10 0.00-0.74 Absolute) Baso Absolute (test code = Baso 0.04 x10 0.00-0.21 Absolute) Basic Metabolic [id number] 05:38:20 Test Item Value Reference Range Interpretation [...] = Lipemia) 0 mg/dL 8-11 Basic Metabolic [id number] 05:38:20 Test Item Value Reference Range Interpretation [...] = 0 mg/dL 8-11 Lipemia) Basic Metabolic [id number] 05:38:20 Test Item Value Reference Range Interpretation [...] code = 0 mg/dL 8-11 Lipemia) POC [id number] 20:28:33 Test Item Value Reference Range Interpretation Comments Glucose POC (test 169 mg/dL 70-115 H If you con demolitionist your code = Glucose POC) patient critically ill, the Merlin-Accu Check Infrom II meter should not be used for Glucose determination. Draw a venous Glucose and send to the main Lab for analysis. POC [id number] 16:39:30 Test Item Value Reference Range Interpretation Comments Glucose POC (test 103 mg/dL 70-115 If you con demolitionist your code = Glucose POC) patient critically ill, the Merlin-Accu Check Infrom II meter should not be used for Glucose determination. Draw a venous Glucose and send to the main Lab for analysis. RPR [id number] 12:08:56 Test Item Value Reference Range Interpretation Comments RPR Qual (test code = RPR Qual) Non-Reactive Non-Reactive Reactive Control (test code = Reactive Reactive Control) Weak Reactive Control (test Weak Reactive code = Weak Reactive Control) Non-Reactive Control (test code Non-Reactive = Non-Reactive Control) Lot # (test code = Lot #) [id number] Expiration Dt (test code = 03-20-2021 N Expiration Dt) POC [id number] 11:52:31 Test Item Value Reference Range Interpretation Comments Glucose POC (test 250 mg/dL 70-115 H If you con demolitionist your code = Glucose POC) patient critically ill, the Merlin-Accu Check Infrom II meter should not be used for Glucose determination. Draw a venous Glucose and send to the main Lab for analysis. POC [id number] 07:55:29 Test Item Value Reference Range Interpretation Comments Glucose POC (test 205 mg/dL 70-115 H If you con demolitionist your code = Glucose POC) patient critically ill, the Merlin-Accu Check Infrom II meter should not be used for Glucose determination. Draw a venous Glucose and send to the main Lab for analysis. Lipid [id number] 05:46:04 Test Item Value Reference Range Interpretation [...] LDL/HDL Ratio=L DL Calc/HDL Chol Thyroid Stimulating [id number] 05:46:04 Test Item Value Reference Range Interpretation Comments TSH (test code = TSH) 3.274 mcIU/mL 0.550-4.780 Hemoglobin [id number] 05:41:08 Test Item Value Reference Range Interpretation Comments Hemoglobin A1c (test code 7.6 % 4.0-5.8 H Di abetic >=6.5 = Hemoglobin A1c) %Prediabet es 5.7-6.4 %Normal <5.7 % Hepatitis B Surface [id number] 21:19:36 Test Item Value Reference Range Interpretation Comments Hep Bs Ag (test code = Hep Bs Non-Reactive Non-Reactive Ag) Novel Coronavirus SARS-CoV-2, [id number] 11:16:16 Test Item Value Reference Range Interpretation [...] Emergency Use Authorization." Novel Coronavirus (COVID-19), EMANUEL [id number] 11:11:24TNPTest not sent and performed at [facility].Rapid was perfomed in Microbiology.Wrong covid test was ord ered.Urine DOA [id number] 00:17:49 Test Item Value Reference Range Interpretation [...] Propoxyphene Confirmation wi thin 7 days. Alcohol [id number] 00:17:29 Test Item Value Reference Range Interpretation Comments Ethanol Level 9.0 mg/dL N The pharmacolo gical (test code = response to blo od alcohol Ethanol Level) levels may va ry from individual to i ndividual. The fatal omkar ntration has been report ed to be >400 mg/dl. Comprehensive Metabolic [id number] 00:17:28 Test Item Value Reference Range Interpretation [...] = Lipemia) 0 g/dL 1-2 Comprehensive Metabolic [id number] 00:17:28 Test Item Value Reference Range Interpretation [...] = 0 g/dL 1-2 Lipemia) Comprehensive Metabolic [id number] 00:17:28 Test Item Value Reference Range Interpretation [...] ag e have not been validated by [facility] MDRD study and should be interpreted wit [...] ag e have not been validated by [facility] MDRD study and should be interpreted wit [...] g/dL 1-2 Lipemia) Complete Blood Count with Hvxrqxussjnd1544-14-09 23:26:28 Test Item Value Reference Range Interpretation [...] code = IPF) 0 % N Automated [id number] 23:26:28 Test Item Value Reference Range Interpretation Comments Neutro Auto (test code = Neutro 67.1 % 36.0-70.0 Auto) Lymph Auto (test code = Lymph Auto) 23.3 % 12.0-44.0 Shasta Auto (test code = Shasta Auto) 5.8 % 0.0-11.0 Eos, Auto (test code = Eos, Auto) 2.3 % 0.0-7.0 Basophil Auto (test code = Basophil 0.8 % 0.0-2.0 Auto) Neutro Absolute (test code = Neutro 6.0 x10 1.6-7.4 Absolute) Lymph Absolute (test code = Lymph 2.10 x10 .50-4.60 Absolute) Shasta Absolute (test code = Shasta .52 x10 .00-1.20 Absolute) Eos Absolute (test code = Eos 0.21 x10 0.00-0.74 Absolute) Baso Absolute (test code = Baso 0.07 x10 0.00-0.21 Absolute) IG [id number] 23:26:28 Test Item Value Reference Range Interpretation Comments IG (test code = IG) 0.7 % 0.0-5.0 IG Abs (test code = IG Abs) 0 x10 N HERPES VIRUS ANTIBODY, [id number] 21:46:00 Test Item Value Reference Range Interpretation Comments HERPES VIRUS IGM (BEAKER) Negative SE E ATTACHMENT (test code = 1808) BLOOD [id number] 06:00:00 Test Item Value Reference Range Interpretation Comments CULTURE (BEAKER) (test No growth in 5 days code = 1095) BLOOD [id number] 06:00:00 Test Item Value Reference Range Interpretation Comments CULTURE (BEAKER) (test No growth in 5 days code = 1095) POCT-GLUCOSE [id number] 12:11:00 Test Item Value Reference Range Interpretation Comments POC-GLUCOSE METER 154 mg/dL 70-110 H TESTED AT [place] [address] ([facility]) (test code = [facility] Eduin [facility] 1538) [address] POCT-GLUCOSE [id number] 07:53:00 Test Item Value Reference Range Interpretation Comments POC-GLUCOSE METER 87 mg/dL 70-110 TESTED AT [place] [address] ([facility]) (test code = [facility] [address] 1538) POCT-GLUCOSE [id number] 06:49:00 Test Item Value Reference Range Interpretation Comments POC-GLUCOSE METER 79 mg/dL 70-110 TESTED AT [place] [address] ([facility]) (test code = [facility] [address] 1538) COMPREHENSIVE METABOLIC [id number] 06:15:00 Test Item Value Reference Range Interpretation Comments TOTAL PROTEIN 5.1 gm/dL 6.0-8.3 L ([facility]) (test code = 770) ALBUMIN ([facility]) 2.2 g/dL 3.5-5.0 L (test code = 1145) ALKALINE PHOSPHATASE 78 U/L 40-150 ([facility]) (test code = 346) BILIRUBIN TOTAL 1.1 [...] S NOT APPLICABLE FOR DIALYSIS PATIEN TS. [id number] 06:11:00 Test Item Value Reference Range Interpretation Comments MAGNESIUM (BEAKER) (test code = 2.1 mg/dL 1.6-2.6 627) HEPATIC FUNCTION [id number] 06:11:00 Test Item Value Reference Range Interpretation [...] 256 U/L 5-34 H 353) ALT (SGPT) ([facility]) (test code = 513 U/L 6-55 H 347) [id number] 05:30:00 Test Item Value Reference Range Interpretation Comments FIBRINOGEN LEVEL ([facility]) (test 368 mg/dl 225-434 code = 658) [id number] 05:30:00 Test Item Value Reference Range Interpretation Comments PARTIAL THROMBOPLASTIN TIME 42.2 seconds 22.5-36.0 H ([facility]) (test code = 760) PROTHROMBIN [id number] 05:29:00 Test Item Value Reference Range Interpretation Comments PROTIME ([facility]) (test code = 14.8 seconds 11.7-14.7 H 759) INR ([facility]) (test code = 370) 1.2 <=5.9 RECOMMENDED COUMADIN/WARFARIN INR THERAPY RANGESSTANDARD DOSE: 2.0 - 3.0 Includes: PROPHYLAXIS forvenous thrombosis, systemic embolization; TREATMENT for venous thrombosis and/or pulmonary embolus.HIGH RISK: Target INR is 2.5-3.5 for patients with mechanical heart valves.POCT-GLUCOSE [id number] 21:09:00 Test Item Value Reference Range Interpretation Comments POC-GLUCOSE METER 178 mg/dL 70-110 H TESTED AT [place] [address] ([facility]) (test code = [place] [facility] 1538) [address] POCT-GLUCOSE [id number] 17:18:00 Test Item Value Reference Range Interpretation Comments POC-GLUCOSE METER 178 mg/dL 70-110 H TESTED AT [place] [address] ([facility]) (test code = [place] [facility] 1538) [address] POCT-GLUCOSE [id number] 13:48:00 Test Item Value Reference Range Interpretation Comments POC-GLUCOSE METER 150 mg/dL 70-110 H TESTED AT [place] [address] ([facility]) (test code = [place] [facility] 1538) [address] FACTOR 5 ACTIVITY (BLEEDING RISK)2017-01-06 10:04:00 Test Item Value Reference Range Interpretation Comments FACTOR V ACTIVITY (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 G 1807) CYTOMEGALOVIRUS ANTIBODY, [id number] 08:59:00 Test Item Value Reference Range Interpretation Comments CYTOMEGALOVIRUS IGG ANTIBODY Positive (BEAKER) (test code = 790) EBV-VCA ANTIBODY, [id number] 08:59:00 Test Item Value Reference Range Interpretation Comments JASE-WALL VCA IGG (BEAKER) (test Positive code = 983) EBV-VCA ANTIBODY, [id number] 08:59:00 Test Item Value Reference Range Interpretation Comments JASE-WALL VCA IGM (BEAKER) (test Negative code = 984) POCT-GLUCOSE [id number] 07:59:00 Test Item Value Reference Range Interpretation Comments POC-GLUCOSE METER 81 mg/dL 70-[address] [facility] ([facility] (test code = [place] [facility] [id number]) COMPREHENSIVE METABOLIC [id number] 06:23:00 Test Item Value Reference Range Interpretation [...] S NOT APPLICABLE FOR DIALYSIS PATIEN TS. [id number] 06:17:00 Test Item Value Reference Range Interpretation Comments MAGNESIUM (BEAKER) (test code = 1.8 mg/dL 1.6-2.6 627) HEPATIC FUNCTION [id number] 06:17:00 Test Item Value Reference Range Interpretation [...] code = 779 U/L 6-55 H 347) [id number] 06:00:00 Test Item Value Reference Range Interpretation Comments FIBRINOGEN LEVEL (BEAKER) (test 390 mg/dl 225-434 code = 658) [id number] 06:00:00 Test Item Value Reference Range Interpretation Comments PARTIAL THROMBOPLASTIN TIME 40.2 seconds 22.5-36.0 H (BEAKER) (test code = 760) PROTHROMBIN TIME/[id number] 05:59:00 Test Item Value Reference Range Interpretation Comments PROTIME (BEAKER) (test code = 14.6 seconds 11.7-14.7 759) INR ([facility]) (test code = 370) 1.2 <=5.9 RECOMMENDED COUMADIN/WARFARIN INR THERAPY RANGESSTANDARD DOSE: 2.0 - 3.0 Includes: PROPHYLAXIS forvenous thrombosis, systemic embolization; TREATMENT for venous thrombosis and/or pulmonary embolus.HIGH RISK: Target INR is 2.5-3.5 for patients with mechanical heart valves.POCT-GLUCOSE [id number] 21:46:00 Test Item Value Reference Range Interpretation Comments POC-GLUCOSE METER 153 mg/dL 70-110 H TESTED AT [place] [address] ([facility]) (test code = [facility] 1538) [address] POCT-GLUCOSE [id number] 18:47:00 Test Item Value Reference Range Interpretation Comments POC-GLUCOSE METER 181 mg/dL 70-110 H TESTED AT [place] [address] ([facility]) (test code = [facility] 1538) [address] POCT-GLUCOSE [id number] 12:40:00 Test Item Value Reference Range Interpretation Comments POC-GLUCOSE METER 178 mg/dL 70-110 H TESTED AT [place] [address] ([facility]) (test code = [facility] 1538) [address] POCT-GLUCOSE [id number] 07:51:00 Test Item Value Reference Range Interpretation Comments POC-GLUCOSE METER 166 mg/dL 70-110 H TESTED AT [place] [address] ([facility]) (test code = [facility] 1538) [address] COMPREHENSIVE METABOLIC [id number] 03:26:00 Test Item Value Reference Range Interpretation Comments TOTAL PROTEIN 5.2 gm/dL 6.0-8.3 L ([facility]) (test code = 770) ALBUMIN ([facility]) 2.3 g/dL 3.5-5.0 L (test code = 1145) ALKALINE PHOSPHATASE 72 U/L 40-150 ([facility]) (test code = 346) BILIRUBIN TOTAL 2.0 mg/dL 0.2-1.2 H ([facility]) (test code = 377) SODIUM ([facility]) (test 140 meq/L 136-145 code = 381) POTASSIUM ([facility]) 3.3 meq/L 3.5-5.1 L (test code = [...] S NOT APPLICABLE FOR DIALYSIS PATIEN TS. [id number] 03:22:00 Test Item Value Reference Range Interpretation Comments MAGNESIUM (BEAKER) (test code = 1.4 mg/dL 1.6-2.6 L 627) HEPATIC FUNCTION [id number] 03:22:00 Test Item Value Reference Range Interpretation [...] code = 1009 U/L 6-55 H 347) [id number] 03:12:00 Test Item Value Reference Range Interpretation Comments AMMONIA (BEAKER) (test code = 348) 29 mol/L 18-72 [id number] 03:10:00 Test Item Value Reference Range Interpretation Comments PARTIAL THROMBOPLASTIN TIME 42.3 seconds 22.5-36.0 H (BEAKER) (test code = 760) PROTHROMBIN [id number] 03:09:00 Test Item Value Reference Range Interpretation Comments PROTIME (BEAKER) (test code = 16.4 seconds 11.7-14.7 H 759) INR (BEAKER) (test code = 370) 1.3 <=5.9 RECOMMENDED COUMADIN/WARFARIN INR THERAPY RANGESSTANDARD DOSE: 2.0 - 3.0 Includes: PROPHYLAXIS forvenous thrombosis, systemic embolization; TREATMENT for venous thrombosis and/or pulmonary embolus.HIGH RISK: Target INR is 2.5-3.5 for patients with mechanical heart valves.[id number] 03:09:00 Test Item Value Reference Range Interpretation Comments FIBRINOGEN LEVEL (BEAKER) (test 413 mg/dl 225-434 code = 658) CBC W/PLT COUNT & AUTO [id number] 03:09:00 Test Item Value Reference Range Interpretation [...] L 0.00-0.20 (test code = 417) 0.00POCT-GLUCOSE [id number] 22:33:00 Test Item Value Reference Range Interpretation Comments POC-GLUCOSE METER 230 mg/dL 70-110 H TESTED AT [place] [address] ([facility]) (test code = [facility] 1538) [address] POCT-GLUCOSE [id number] 18:17:00 Test Item Value Reference Range Interpretation Comments POC-GLUCOSE METER 222 mg/dL 70-110 H TESTED AT [place] [address] ([facility]) (test code = [facility] 1538) [address] COMPREHENSIVE METABOLIC [id number] 16:59:00 Test Item Value Reference Range Interpretation [...] PATIEN TS. PERIPHERAL BLOOD SMEAR - PATHOLOGIST [id number] 15:30:00 Test Item Value Reference Range Interpretation Comments RBC MORPHOLOGY Polychromasia (BEAKER) (test code = 2846) RBC MORPHOLOGY Anisocytosis (BEAKER) (test code = 20726) PERIPHERAL SMR REVIEW Cell counts confirmed (BEAKER) (test code = 2640) [id number] Josefina Lara M.D. (BEAKER) (test code = (electronic signature) 4565) PROTHROMBIN [id number] 15:12:00 Test Item Value Reference Range Interpretation [...] Reference Range Interpretation Comments ANTI-NUCLEAR ANTIBODY (IVETTE) ([facility]) Negative Negative (test code = 418) POCT-GLUCOSE [id number] 12:47:00 Test Item Value Reference Range Interpretation Comments POC-GLUCOSE METER 212 mg/dL 70-[address] [facility] (MADIE) (test code = [place] 1538) [address] [id number] 12:34:00 Test Item Value Reference Range Interpretation Comments RPR SCREEN (MADIE) (test code = Nonreactive Nonreactive 420) CLOSTRIDIUM DIFFICILE TOXIN [id number] 10:12:00 Test Item Value Reference Range Interpretation [...] Reference Range Change-Adult onlyNew: 60.0-150.0 Previous: 50.0-150.0POCT-GLUCOSE [id number] 06:40:00 Test Item Value Reference Range Interpretation Comments POC-GLUCOSE METER 167 mg/dL 70-[address] [facility] (BEAKER) (test code = [place] 1538) [address] COMPREHENSIVE METABOLIC [id number] 04:08:00 Test Item Value Reference Range Interpretation [...] ESTIM ATED GFR. Specimen slightly ictericHEPATIC FUNCTION [id number] 04:06:00 Test Item Value Reference Range Interpretation [...] 1091 U/L 6-55 H 347) Specimen slightly [id number] 04:01:00 Test Item Value Reference Range Interpretation Comments FIBRINOGEN LEVEL (BEAKER) (test 379 mg/dl 225-434 code = 658) [id number] 04:01:00 Test Item Value Reference Range Interpretation Comments PARTIAL THROMBOPLASTIN TIME 40.7 seconds 22.5-36.0 H (BEAKER) (test code = 760) PROTHROMBIN [id number] 04:00:00 Test Item Value Reference Range Interpretation [...] L 0.00-0.20 (test code = 417) 0.00POCT-GLUCOSE [id number] 00:19:00 Test Item Value Reference Range Interpretation Comments POC-GLUCOSE METER 159 mg/dL 70-110 H TESTED AT [place] [address] ([facility]) ([facility] 1538) [address] POCT-GLUCOSE [id number] 18:56:00 Test Item Value Reference Range Interpretation Comments POC-GLUCOSE METER 192 mg/dL 70-[address] [facility] [address] ([facility]) (test code = [facility] Eduin [facility] 1538) [address] COMPREHENSIVE METABOLIC [id number] 16:55:00 Test Item Value Reference Range Interpretation [...] CALCULATE ESTIM ATED GFR. Specimen slightly ictericPROTHROMBIN [id number] 16:37:00 Test Item Value Reference Range Interpretation Comments PROTIME (BEAKER) (test code = 20.9 seconds 11.7-14.7 H 759) INR (BEAKER) (test code = 370) 1.8 <=5.9 RECOMMENDED COUMADIN/WARFARIN INR THERAPY RANGESSTANDARD DOSE: 2.0 - 3.0 Includes: PROPHYLAXIS forvenous thrombosis, systemic embolization; TREATMENT for venous thrombosis and/or pulmonary embolus.HIGH RISK: Target INR is 2.5-3.5 for patients with mechanical heart valves.HEPATITIS B SURFACE [id number] 14:05:00 Test Item Value Reference Range Interpretation Comments HEPATITIS B SURFACE ANTIBODY < mIU/mL <8.0 (BEAKER) (test code = 647) HEPATITIS B CORE ANTIBODY, [id number] 13:43:00 Test Item Value Reference Range Interpretation Comments HEPATITIS B CORE TOTAL ANTIBODY Nonreactive Nonreactive (BEAKER) (test code = 497) BLOOD GAS, [id number] 13:35:00 Test Item Value Reference Range Interpretation [...] code = 1819) 28.0 % URINALYSIS W/ [id number] 13:16:00 Test Item Value Reference Range Interpretation [...] 1584) SOURCE(BEAKER) (test code = Urine, [place] 0470) VITAMIN D, [id number] 13:14:00 Test Item Value Reference Range Interpretation Comments VITAMIN D 25-OH (BEAKER) (test code = < ng/mL 13.0-47.8 L 2764) ALPHA FETOPROTEIN (AFP), TUMOR [id number] 13:06:00 Test Item Value Reference Range Interpretation Comments ALPHA-FETOPROTEIN (BEAKER) (test code < ng/mL <10.0 = 1094) Effective 05/08/2014: Reference Range ChangeNew: <10.0 Previous: 0.0-8.0 HEMOGLOBIN [id number] 13:05:00 Test Item Value Reference Range Interpretation Comments HEMOGLOBIN A1C (BEAKER) (test code = 7.6 % 4.3-6.1 H 368) CARCINOEMBRYONIC ANTIGEN (CEA)2017-01-03 12:59:00 Test Item Value Reference Range Interpretation Comments CARCINOEMBRYONIC ANTIGEN (BEAKER) 2.0 ng/mL 0.0-5.0 (test code = 685) [id number] 12:59:00 Test Item Value Reference Range Interpretation Comments FERRITIN (BEAKER) (test code = 1841 ng/mL 5-275 H 361) Effective 05/08/2014: Reference Range ChangeNew: Male 5-275 Previous: Male 22-322 Female 5-275 Female [id number] 12:58:00 Test Item Value Reference Range Interpretation Comments T4 TOTAL (BEAKER) (test code = 895) 4.5 ug/dL 4.9-11.7 L [id number] 12:58:00 Test Item Value Reference Range Interpretation Comments THYROID STIMULATING HORMONE 1.79 uIU/mL 0.35-4.94 (BEAKER) (test code = 772) [id number] 12:58:00 Test Item Value Reference Range Interpretation Comments T3 TOTAL (BEAKER) (test code = 656) 34 ng/dL 48-159 L Effective 05/08/2014: Reference Range ChangeNew: 48-159 Previous: 60-181 CALCIUM, [id number] 12:47:00 Test Item Value Reference Range Interpretation Comments CALCIUM IONIZED (BEAKER) (test 1.05 mmol/L 1.12-1.27 L code = 698) PH, BLOOD (BEAKER) (test code = 7.43 1810) [id number] 12:42:00 Test Item Value Reference Range Interpretation [...] % 20-55 (test code = 2590) URIC [id number] 12:40:00 Test Item Value Reference Range Interpretation Comments URIC ACID (BEAKER) (test code = 16.0 mg/dL 2.6-7.2 H 773) Specimen slightly ictericLIPID [id number] 12:40:00 Test Item Value Reference Range Interpretation [...] 160-189 Very High >=190 Specimen slightly ictericBILIRUBIN, [id number] 12:40:00 Test Item Value Reference Range Interpretation Comments BILIRUBIN DIRECT (MADIE) (test 2.4 mg/dL 0.1-0.5 H code = 706) GAMMA GLUTAMYL TRANSFERASE (GGT)2017-01-03 12:40:00 Test Item Value Reference Range Interpretation Comments GAMMA GLUTAMYL TRANSFERASE (CHANDNIAKER) 53 U/L 9-64 (test code = 364) Specimen slightly [id number] 12:39:00 Test Item Value Reference Range Interpretation Comments ETHANOL (BEAKER) (test code = 400) < mg/dL <=10 SCREEN, [id number] 12:36:00 Test Item Value Reference Range Interpretation Comments TEST URINE (MADIE) (test Negative code = 583) POCT-GLUCOSE [id number] 12:34:00 Test Item Value Reference Range Interpretation Comments POC-GLUCOSE METER 189 mg/dL 70-[address] [facility] (MADIE) (test code = [place] 1538) [address] HIV-1 ANTIGEN WITH HIV-1/2 [id number] 11:58:00 Test Item Value Reference Range Interpretation Comments HIV-1 ANTIGEN WITH HIV 1\\T\\2 Nonreactive Nonreactive ANTIBODY (2) (MADIE) (test code = 2586) TROPONIN [id number] 09:44:00 Test Item Value Reference Range Interpretation [...] Previous: 0.0-4.9CK-MB Reference Range:<6.7 Normal6.7-10.0 Borderline>10.0 AbnormalACETAMINOPHEN [id number] 08:31:00 Test Item Value Reference Range Interpretation Comments ACETAMINOPHEN LEVEL (BEAKER) (test < ug/mL 10.0-30.0 L code = 344) TROPONIN [id number] 05:53:00 Test Item Value Reference Range Interpretation [...] acute neurological disease, and persistent tachyarrhythmia.BASIC METABOLIC [id number] 05:53:00 Test Item Value Reference Range Interpretation [...] TO CALCULA TE ESTIMATED GFR. Specimen slightly [id number] 05:52:00 Test Item Value Reference Range Interpretation Comments PHOSPHORUS (BEAKER) (test code = 5.7 mg/dL 2.3-4.7 H 604) HEPATIC FUNCTION [id number] 05:52:00 Test Item Value Reference Range Interpretation [...] Specimen slightly ictericCREATINE KINASE (CK), TOTAL AND [id number] 05:52:00 Test Item Value Reference Range Interpretation Comments CREATINE KINASE TOTAL (BEAKER) 341 U/L 29-200 H (test code = 380) CREATINE KINASE-MB (BEAKER) (test 5.4 ng/mL 0.0-6.6 code = 750) CREATINE KINASE-MB INDEX (BEAKER) 1.6 % (test code = 395) Effective 05/08/2014: CK-MB Reference Range ChangeNew: 0.0-6.6 Previous: 0.0-4.9CK-MB Reference Range:<6.7 Normal6.7-10.0 Borderline>10.0 AbnormalCBC W/PLT COUNT & AUTO [id number] 05:48:00 Test Item Value Reference Range Interpretation [...] K/ L 0.00-0.20 (test code = 417) [id number] 05:09:00 Test Item Value Reference Range Interpretation Comments FIBRINOGEN LEVEL (BEAKER) (test 427 mg/dl 225-434 code = 658) [id number] 05:09:00 Test Item Value Reference Range Interpretation Comments PARTIAL THROMBOPLASTIN TIME 36.2 seconds 22.5-36.0 H (BEAKER) (test code = 760) PROTHROMBIN TIME/[id number] 05:08:00 Test Item Value Reference Range Interpretation Comments PROTIME (BEAKER) (test code = 22.8 seconds 11.7-14.7 H 759) INR (BEAKER) (test code = 370) 2.0 <=5.9 RECOMMENDED COUMADIN/WARFARIN INR THERAPY RANGESSTANDARD DOSE: 2.0 - 3.0 Includes: PROPHYLAXIS forvenous thrombosis, systemic embolization; TREATMENT for venous thrombosis and/or pulmonary embolus.HIGH RISK: Target INR is 2.5-3.5 for patients with mechanical heart valves.HEPATITIS PANEL, [id number] 03:40:00 Test Item Value Reference Range Interpretation Comments HEPATITIS A IGM ANTIBODY (BEAKER) Nonreactive Nonreactive (test code = 498) HEPATITIS B CORE IGM ANTIBODY Nonreactive Nonreactive (BEAKER) (test code = 645) HEPATITIS C ANTIBODY (BEAKER) Nonreactive Nonreactive (test code = 367) HEPATITIS B SURFACE ANTIGEN (2) Nonreactive Nonreactive (BEAKER) (test code = 2585) CREATININE, RANDOM [id number] 03:18:00 Test Item Value Reference Range Interpretation Comments CREATININE URINE (BEAKER) (test 118.7 mg/dL code = 375) Reference Range: No NormalsSODIUM, RANDOM [id number] 03:18:00 Test Item Value Reference Range Interpretation Comments SODIUM URINE (BEAKER) (test code = 60 meq/L 243) Reference Range: No NormalsUREA NITROGEN, RANDOM [id number] 03:18:00 Test Item Value Reference Range Interpretation Comments UREA NITROGEN URINE (BEAKER) (test 303 mg/dL code = 538) Reference Range: No [id number] 03:07:00 Test Item Value Reference Range Interpretation Comments AMMONIA (BEAKER) (test code = 348) 48 mol/L 18-72 [id number] 02:57:00 Test Item Value Reference Range Interpretation [...] within 95-100% range. URINALYSIS W/ REFLEX URINE [id number] 02:53:00 Test Item Value Reference Range Interpretation [...] /LPF = 514) SOURCE(BEAKER) (test code = 8795) [id number] 02:49:00 Test Item Value Reference Range Interpretation Comments PARTIAL THROMBOPLASTIN TIME 39.4 seconds 22.5-36.0 H (BEAKER) (test code = 760) PROTHROMBIN TIME/SMN8750-45-61 02:48:00 Test Item Value Reference Range Interpretation Comments PROTIME (BEAKER) (test code = 22.0 seconds 11.7-14.7 H 759) INR (BEAKER) (test code = 370) 1.9 <=5.9 RECOMMENDED COUMADIN/WARFARIN INR THERAPY RANGESSTANDARD DOSE: 2.0 - 3.0 Includes: PROPHYLAXIS forvenous thrombosis, systemic embolization; TREATMENT for venous thrombosis and/or pulmonary embolus.HIGH RISK: Target INR is 2.5-3.5 for patients with mechanical heart valves.XLSKJWJUMG1919-93-22 02:48:00 Test Item Value Reference Range Interpretation Comments FIBRINOGEN LEVEL (BEAKER) (test 421 mg/dl 225-434 code = 658) BLOOD GAS, DRAXFS0770-34-62 02:43:00 Test Item Value Reference Range Interpretation [...] 21.0 % CBC W/PLT COUNT & AUTO IMGNDIHHBHBQ4907-54-58 02:43:00 Test Item Value Reference Range Interpretation [...] code = 417) 0.00LACTIC ACID, VENOUS, WHOLE RTWRW9663-56-15 02:35:00 Test Item Value Reference Range Interpretation Comments LACTATE BLOOD VENOUS (2) (BEAKER) 0.8 mmol/L 0.5-2.2 (test code = 2872) Effective 10/23/2015: Units/Reference Range ChangeNew: 0.5-2.2 mmol/L Previous: 5-20 mg/dLSpecimen slightly jzzffvhUUVKSBAVAVJK1907-66-34 11:32:0014.6[facility] PlxosviYJNYQEFUOJWM2442-15-70 11:32:0033[facility] EuwxizbCARJSFLNWJUS4602-46-19 11:32:008.3[facility] AjtdussIDPYPTXUNCIW2001-54-55 11:32:0081[facility] FBOJWRTMJEBH2243-23-35 11:32:001.95[facility] ZjmvrzqOZODZRJBUDQD4970-11-97 11:32:0055[facility] QdjlolvNUCLECAQAUIZ3313-85-66 11:32:0019[facility] AEEGYHHUBPOB8729-22-11 11:32:43542Quwzoqow FzbuytaXVXUEMNCPAWH2699-16-50 11:32:25465Rplkuqek MdrrpflMFYNALBTBSBW7503-02-31 11:32:004.6[facility] TYZNKANYNQ9643-39-38 11:32:0030.4[facility] NvjgbkgDGYORDNQVD6378-64-74 11:32:00 4.5[facility] NckiteqUSPEZJGRKU0540-98-65 11:32:0013.7[facility] HermannHEMATOLOGY 2016-07-30 11:32:002.6[facility] UnpnxciDMDYJGKQBN4647-00-09 11:32:000.7[facility] IyrgebvQMJFOTHDMR1101-03-51 11:32:000.7[facility] FjrwpldAIXQKYMYAG7344-64-00 11:32:001.6[facility] HdxjpvfJBRJQMXADS7375-13-41 11:32:000.2[facility] SHSGZTJRRL6836-96-04 11:32:0050.7[facility] BjmrmxcSWAMPTKVCJ3267-48-55 11:32:00 28.1[facility] RgtzcgnDHRUYXAVFG3612-32-94 11:32:003.39[facility]annHEMATOLOGY 2016-07-30 11:32:008.9[facility] LxnviwoHRWFSOYXOW4512-65-24 11:32:005.1[facility] QgopasnTFUOBZZZQY1773-27-94 11:32:0011.3[facility] VmfrgrrARDZUNGUKX1056-69-37 11:32:07880Dnegudzz WstihqoRCXYONNFVJ2019-10-57 11:32:0031.8[facility] BBAYZMWYPR9847-65-39 11:32:0018.0[facility] JydftgdUGYLKAXWAI8730-00-80 11:32:00 83.0[facility] EunsixoPVIAPECNMJ0949-46-05 11:32:00 Test Item Value Reference Range Interpretation Comments MCH (test code = MCH) 26.4 pg 27.0-31.0 [facility] JmbnvmfUYDAPXKNZP0405-53-15 11:32:73504Btatswxu HermannIMMUNOLOGY 2016-07-30 11:32:00Negative *NA*(07/30/16 5:32 AM)[facility] HermannIMMUNOLOGY 2016-07-29 11:05:00Negative *NA*(07/29/16 5:05 AM)[facility]annIMMUNOLOGY 2016-07-29 11:05:0092[facility] HermannCHEM HVDRW7507-47-69 15:50:0025[facility] HermannCHEM KYIUV9996-44-59 15:50:0055[facility] HermannCHEM HVQVH9935-64-27 15:50:0023[facility]annCHEM PLZDE4739-62-17 15:50:78440Llrorjrx HermannCHEM ZESPY6225-29-87 15:50:63803Ryepehcn HermannCHEM VJAWP2695-61-72 15:50:004.0 [facility]annCHEM RMDUY9304-57-59 15:50:42988Tnsfjdct HermannCHEM PANEL 2016-07-28 15:50:0013.0[facility] HermannCHEM VIZUP9543-61-53 15:50:007.7[facility]annCHEM TSBVS3559-26-22 15:50:002.49[facility] OllpxbjIHTKBFLQQL8824-07-83 15:50:00 Test Item Value Reference Range Interpretation Comments PT (test code = PT) 14.8 s 12.0-14.7 [facility] AzrfbxcBAHKXPJUEB5896-63-24 15:50:00 Test Item Value Reference Range Interpretation Comments PTT (test code = PTT) 40.8 s 22.9-35.8 [facility] VdjjlinFRNFPIPXPS9907-14-81 15:50:001.14[facility] HermannIMMUNOLOGY 2016-07-28 15:50:0094[facility] SsmwqdpYAXGACVMRO4723-43-44 10:35:001.7[facility] IbfymyvMRMPRKKGNY6733-73-38 10:35:002.7[facility] NmiozslJQUCYGINQI5830-21-88 10:35:000.1[facility] DrlcxcdCYGIRTOAVR8020-12-28 10:35:000.7[facility] EHILCEFAAE1259-50-60 10:35:0051.3[facility] UtfuuvyGKZWTUWOFZ7223-00-45 10:35:00 31.6[facility] UiefpbiLPSPPGRCSV8133-86-83 10:35:0014.1[facility] HermannHEMATOLOGY 2016-07-28 10:35:002.6[facility] PbnomqlKBMEBWDUGW7397-30-10 10:35:000.4[facility] MeaxhbvFKZMIEJOTH5126-44-58 10:35:0029.3[facility] FgeiaudIFCPGHFRVE9037-30-48 10:35:009.2[facility] VfgvdydLJVXEWIKIZ3302-28-45 10:35:003.54[facility] AZBIYFQUMZ6335-84-80 10:35:005.3[facility] XwriiqhCDEJJGXQQL6699-18-04 10:35:0087 [facility] DevxawbZNFPLRNWVX7427-72-90 10:35:0031.4[facility] HermannHEMATOLOGY 2016-07-28 10:35:0017.9[facility] AdmsdmtJVLEWSNAUI1533-51-42 10:35:0010.9[facility] VgiyfjqSIMVHYCEMY5017-26-48 10:35:00 Test Item Value Reference Range Interpretation Comments MCH (test code = MCH) 26.0 pg 27.0-31.0 [facility] EuxhstpCAMWPQAUYB7787-33-18 10:35:0082.8[facility] HermannIMMUNOLOGY 2016-07-28 10:35:00Negative *NA*(07/28/16 4:35 AM)[facility] HermannCARDIAC ENZYMES 2016-07-27 10:22:95791Kashjqni HermannCHEM DPURE7298-04-82 10:22:007.8[facility] HermannCHEM ROLYV7799-84-68 10:22:0021[facility] HermannCHEM JRWPX2568-32-17 10:22:38902Tnorvaxc HermannCHEM SHDDC5237-29-64 10:22:003.8[facility] HermannCHEM PVWGZ7135-45-28 10:22:42068Bbcaioyc HermannCHEM JCISY1748-91-26 10:22:000.4 [facility] HermannCHEM UDMQU0910-96-62 10:22:0074[facility] HermannCHEM PANEL 2016-07-27 10:22:0019[facility] HermannCHEM MXTCJ3484-34-06 10:22:005.2[facility] HermannCHEM PUAEQ3993-00-00 10:22:21867Jcwicruf HermannCHEM AVZYN1648-43-68 10:22:90853Ozotvjqd HermannCHEM UNCKF2663-34-67 10:22:001.8[facility] HermannCHEM FUNDT3540-27-86 10:22:0054[facility] HermannCHEM CZFYL9918-37-39 10:22:71181 [facility] HermannCHEM KOMGB6057-83-51 10:22:003.11[facility] HermannCHEM PANEL 2016-07-27 10:22:0017[facility] HermannCHEM JNUHW5560-90-88 10:22:0016.8[facility] HermannCHEM VAHTF4512-81-64 10:22:003.4[facility] HermannCHEM YJQMJ8512-75-04 10:22:000.5[facility] HermannCHEM RBEEH8025-90-99 10:22:002.0[facility] HermannCHEM RQYOR3095-53-35 10:22:003.7[facility] SqutckuSKWZTCDSKH9070-92-07 10:22:0017.7 [facility] KcrkcfrRVHFVWIDJF1967-42-82 10:22:0032.9[facility] HermannHEMATOLOGY 2016-07-27 10:22:0025.4[facility] LgdoolbSUTRZJWNFE6513-27-34 10:22:00 Test Item Value Reference Range Interpretation Comments MCH (test code = MCH) 26.4 pg 27.0-31.0 [facility] QejegehBOFWCHHUTY3108-96-19 10:22:0080.3[facility] HermannHEMATOLOGY 2016-07-27 10:22:0011.4[facility] BtukrryNHIAFRIRLK6444-55-44 10:22:0074[facility] RvtnzwpSVFJAUZSUB2909-87-63 10:22:003.16[facility] CxcjvhcVOAEAZQYJE0853-77-85 10:22:005.3[facility] NtcvbcqPJCCMHXPFD5324-71-38 10:22:008.4[facility] YSABUFOHCN7102-75-22 10:22:0014.5[facility] VtkgvllWAZVVUJZSO4314-02-27 10:22:00 29.8[facility] YkbebvzLPVZSRWERL8413-31-04 10:22:000.1[facility] HermannHEMATOLOGY 2016-07-27 10:22:000.8[facility] PblhlroTJRDSOPJWX5489-67-62 10:22:002.9[facility] MgvwsfaFQYYMUUXVW1180-26-57 10:22:001.6[facility] FcovmksQXZDJRRUAN6187-49-60 10:22:000.4[facility] OovjsdiCOQAMEXODZ4451-21-78 10:22:001.2[facility] JWWSCXUCJU2911-86-79 10:22:0054.1[facility] HermannSPECIAL DLJLHTVBA5929-88-50 10:22:008.9[facility] HermannCARDIAC BORICXR2075-87-69 17:40:70953Sregsxgf [facility] XRGUFAJMJA8677-35-91 17:40:00Positive *ABN*(07/26/16 11:40 AM)[facility] NEFFDMTNPH3560-35-48 17:40:00<0.2[facility] OnbskktLIVWMWGPHK7736-06-30 17:40:00<0.2[facility] GpkamjpHFJODOKQOL9585-04-72 17:40:00<0.2[facility] MktffgbBKCIDLGTLD0193-28-54 17:40:00<0.2[facility] ObrybnqJXSGOGDPMF5583-33-36 17:40:00Negative (07/26/16 11:40 AM)[facility] HebmrerARZOAIUYHC1067-06-72 17:40:00 1:40 *ABN*(07/26/16 11:40 AM)[facility]annURINE FYSR9539-15-02 17:40:0021 [facility] FfqxebiEMUCHGSCIO2221-25-36 14:00:001.11[facility] HermannHEMATOLOGY 2016-07-26 14:00:00 Test Item Value Reference Range Interpretation Comments PT (test code = PT) 14.5 s 12.0-14.7 [facility] LnpzidaTVCFWYMAGI5816-89-65 14:00:00Negative *NA*(07/26/16 8:00 AM) [facility] WnuruokNMDCZUUEDN7184-37-80 14:00:00Negative *NA*(07/26/16 8:00 AM) [facility] YjlsvijHIYUMIODLM3731-02-70 14:00:00Negative *NA*(07/26/16 8:00 AM) [facility] PrtaaboHUQECCWICQ8113-32-74 14:00:00Negative *NA*(07/26/16 8:00 AM) [facility] HermannCHEM DVOOT2182-81-79 10:42:0017[facility] HermannCHEM PANEL 2016-07-26 10:42:252662Cqmegmkj HermannCHEM OJYSK0943-55-57 10:42:000.5[facility] HermannCHEM SMNMJ7139-26-49 10:42:000.3[facility] HermannCHEM UNDXT3590-99-17 10:42:0079[facility] HermannCHEM YZZQP7701-98-71 10:42:79185Jbitzchy HermannCHEM YYNJU6831-66-23 10:42:005.5[facility] HermannCHEM PMCUS8428-76-67 10:42:003.7 [facility] HermannCHEM ZRJVG9976-59-95 10:42:001.8[facility] HermannCHEM PANEL 2016-07-26 10:42:002.1[facility] TfsstenURPKNDPCOQ3639-77-65 10:42:00Present *ABN*(07/26/16 4:42 AM)[facility] CqgvjsjFXVVYPQFUB5685-70-88 10:42:001+ *ABN*(07/26/16 4:42 AM)[facility] CwbmseeMWGLFXWUSI2014-96-78 10:42:000.1[facility] OshfqayZCTMGRKPFG5749-91-78 10:42:00Moderate *ABN*(07/26/16 4:42 AM)[facility] HndgpgaZXFLIZLJFI7019-12-62 10:42:0042[facility]annURINE AND UFAPK2590-82-58 16:34:001[facility]annURINE AND CQUJE0545-59-82 16:34:004[facility] URINE AND OOILI0540-81-93 16:34:00Negative (07/25/16 10:34 AM)[facility] URINE AND ZYPKX1418-19-30 16:34:00Negative (07/25/16 10:34 AM)[facility] URINE AND WUHVQ6949-25-97 16:34:002[facility]annURINE AND MYJYF8341-50-24 16:34:006[facility]annURINE AND UFORT3167-07-17 16:34:002.0[facility] URINE AND CPMIE3539-71-23 16:34:00Negative (07/25/16 10:34 AM)[facility] URINE AND BAALZ4197-80-40 16:34:00Negative *NA*(07/25/16 10:34 AM)[facility] URINE AND ULENV2724-43-76 16:34:001.012[facility]annURINE AND AHSWO8920-31-15 16:34:005.5[facility]annUR[facility] AND MTKZN8673-86-51 16:34:00Slight *ABN*(07/25/16 10:34 AM)[facility]UR[facility] AND CTIMZ7288-65-37 16:34:00Dark Yellow *NA*(07/25/16 10:34 AM)[facility]annUR[facility] AND ARAET0917-22-91 16:34:009 [facility]annURINE PSRR1757-26-48 16:34:0030[facility]UR[facility] CHEM 2016-07-25 16:34:003.1[facility]annURINE HVIQ7875-63-69 16:34:24894.9[facility]annURINE NAXF6259-45-07 16:34:77968.00[facility] HermannCHEM UAKII5722-70-40 08:55:002.0[facility] HermannCHEM XCFNQ3384-82-51 08:55:005.2[facility] CARDIAC AVHOVPU6787-07-62 17:29:000.28[facility] HermannCARDIAC TURHXQD1433-69-11 17:29:664386Wmndumds HermannCARDIAC YVNXPGP3335-54-36 17:29:000.144[facility]annCARDIAC YLKZVND8334-69-54 17:29:000.2[facility] HermannCARDIAC ENZYMES 2016-07-24 17:29:006.3[facility] HermannCARDIAC KCUWPCY6303-28-99 11:20:000.38 [facility]annCARDIAC CSPHJCG0165-25-89 11:20:000.173[facility]annCARDIAC UVVXCTZ7737-33-36 11:20:000.2[facility] HermannCARDIAC USAQPXG0581-19-34 11:20:00 5.6[facility] HermannCHEM JYVWJ6485-33-77 11:20:005.5[facility] HermannCARDIAC ZRARWNB7408-13-85 06:18:26530Oidlyuxs HermannCARDIAC EHPDZKR1082-99-12 04:59:27 0.57[facility] HermannCARDIAC ORMUQRQ6034-14-16 10:22:62674Pqilixzu HermannCHEM ODEVJ9357-33-10 10:22:002.1[facility] HermannCHEM OXZTW5130-01-67 10:22:31865 [facility]annCHEM LOKFW5198-85-02 10:22:0041[facility] HermannCHEM PANEL 2016-06-15 10:22:002.00[facility] HermannCHEM VGUDQ7092-18-30 10:22:009.0[facility] HermannCHEM FIYCS0968-90-94 10:22:54161Jfvqydee HermannCHEM DMIBS7326-36-95 10:22:0033[facility] HermannCHEM RQLII5950-10-74 10:22:10564Gqsyzeyy HermannCHEM HXSOH5177-84-17 10:22:004.0[facility] HermannCHEM SZVEP3218-24-17 10:22:0032 [facility]annCHEM EQJNX6144-41-33 10:22:0013.0[facility] HermannCHEM PANEL 2016-06-15 10:22:004.6[facility] HdyeodaSQNISFJAHM1682-03-51 10:22:003.68[facility] RqqqyhlQLVOPCKSEY2100-04-92 10:22:009.9[facility] GbpsosuBTPTDTUHJF6133-43-31 10:22:00 Test Item Value Reference Range Interpretation Comments MCH (test code = MCH) 26.8 pg 27.0-31.0 [facility] UteguyiRJMESRCQYD8801-42-09 10:22:0034.2[facility] HermannHEMATOLOGY 2016-06-15 10:22:0078.3[facility] GhkixqdGDAXXMQJNE9852-86-54 10:22:0028.8[facility] XafirlpRQHVBLSLRH6428-03-49 10:22:81421Nrzqlmnl HriewkjFIUNGGTOMP4689-03-49 10:22:009.5[facility] MibibavMLBXTJLCJV3317-79-87 10:22:0015.3[facility] JVEDGLMDYD8077-77-52 10:22:005.6[facility] PdhlvojUBAMVXSPXR7859-48-70 10:22:000.5 [facility] XqmfmazYJFOFIJJSG0202-48-43 10:22:001+ *ABN*(06/15/16 4:22 AM)[facility] OggwklbWMIZDJYVNH7008-04-87 10:22:000.1[facility] SdknsexMPGZOXIMBM5794-74-93 10:22:0033.5[facility] BlrjfpcXOAKABZJEX4889-74-36 10:22:0047.6[facility] RLOPHGOZQS3988-46-32 10:22:008.4[facility] IbfsqkfOKBXKXBDFF1730-22-87 10:22:009.4 [facility] HibyljsIMVYSYMJIE9558-26-52 10:22:002.6[facility] HermannHEMATOLOGY 2016-06-15 10:22:001.9[facility] UhrwmibXHHEFDBDHB3273-88-03 10:22:001.1[facility] TpovycpGXGLNOHYHS9124-50-62 10:22:000.5[facility] HermannCHEM AOAGR3886-07-82 11:03:004.8[facility] HermannCHEM LATWR8640-90-13 11:03:002.0[facility] HermannCHEM OLZRZ6550-31-94 11:03:0032[facility]annCHEM HKXLU1835-85-92 11:03:99945 [facility]annCHEM NQTYC5307-75-02 11:03:004.4[facility] HermannCHEM PANEL 2016-06-14 11:03:0037[facility] HermannCHEM ZBDBC7214-78-52 11:03:34726Tbvywdaz HermannCHEM BPMWX4647-00-65 11:03:002.00[facility] HermannCHEM VTZUP5739-35-27 11:03:85427Sjeysybd HermannCHEM GLPCU4057-38-65 11:03:008.7[facility] HermannCHEM VHOYT1949-96-88 11:03:0032[facility]annCHEM IXXOM5331-33-45 11:03:0013.4 [facility] NuqqprtRKCMZVYBNR2299-57-26 11:03:0010.3[facility]annHEMATOLOGY 2016-06-14 11:03:000.1[facility] TunwoayRFKCFYUHSB9899-88-97 11:03:000.5[facility] OnmblmeWGODFIZBMP8219-37-89 11:03:000.5[facility] XtrhnvkRDPWFXXCKY7832-39-02 11:03:002.1[facility] BbfnpqtAJDIQHGAUM1792-54-63 11:03:001.2[facility] ONBWELFGIJ4064-47-23 11:03:001.9[facility] PkkdcugZCQFHZCDPZ0875-48-22 11:03:00 42.5[facility] JmxryefKPVHMOAUEE5441-20-02 11:03:0037.0[facility]annHEMATOLOGY 2016-06-14 11:03:009.0[facility] IyufifbEMFRVGGYXF9688-72-74 11:03:009.8[facility] KzxiwfvEMOBFIEKQW0083-46-91 11:03:005.0[facility] KincregOCWNPNLNGA5410-10-54 11:03:003.57[facility] XsplvqrYVDUHKAKSG7728-68-25 11:03:009.4[facility] GSMRXNRPFF7734-17-97 11:03:0028.5[facility] TeccipqODUNJYLIWO5361-67-42 11:03:00 183[facility] CjftjanLLTUNDEAWF4727-18-57 11:03:0079.9[facility] HermannHEMATOLOGY 2016-06-14 11:03:00 Test Item Value Reference Range Interpretation Comments MCH (test code = MCH) 26.3 pg 27.0-31.0 [facility] EqoxmrqXNBKSRLQGR7948-32-20 11:03:0033.0[facility] HermannHEMATOLOGY 2016-06-14 11:03:0015.9[facility]annURINE ZSKZ0085-31-71 10:26:006.9[facility]annURINE CTEE2000-45-66 10:26:0019.30[facility]annURINE OUDP5521-14-09 10:26:47429.1[facility] AblkrnqYSOUCFTNHT1248-90-85 09:20:009.7[facility] UHDCQBJABG4748-66-89 09:20:02459Jssqhnut VfvcyujGQUBEAVLIO5423-54-88 09:20:00 15.9[facility] GuwtnhgRFEHWCVIBI9467-80-73 09:20:0079.3[facility]annHEMATOLOGY 2016-06-13 09:20:0033.0[facility] TjtsnnoSXNADAMHWZ8425-97-70 09:20:00 Test Item Value Reference Range Interpretation Comments MCH (test code = MCH) 26.2 pg 27.0-31.0 [facility] HcjfevfMLTMMUDDJQ6468-17-96 09:20:0029.4[facility]annHEMATOLOGY 2016-06-13 09:20:009.7[facility] BchzazoVSFRZDTYOM1973-69-44 09:20:003.70[facility] OwcclkhZGMRORSKVR6037-99-66 09:20:005.7[facility] TvvrtppSVCSVZZSOB1680-00-08 09:20:000.1[facility] HstoenfLDJKGXTJSY9849-45-95 09:20:002.2[facility] ZIXHBWQXOO7564-57-63 09:20:000.5[facility] QtkusofEHLXTNDHSA0988-64-13 09:20:000.5 [facility] SxbjxjdMSBXWLCXHO7926-42-03 09:20:001.1[facility]annHEMATOLOGY 2016-06-13 09:20:002.3[facility] MtjcbzpHSKUFSNKHC7795-70-21 09:20:009.5[facility] GheimmrUZKRMLAEBT9046-47-86 09:20:009.0[facility] SahxclhDZPWRFNIQL2085-28-17 09:20:0038.9[facility] TuvfkmqXSKDBMSSGX6471-38-85 09:20:0041.5[facility] CHEM KOOLJ0209-11-55 06:34:001.7[facility] HermannCHEM IDBDS4183-77-63 06:34:004.2 [facility] JvhbosyNSIUWUSZFQIC0760-25-71 06:34:0014.3[facility] HermannELECTROLYTES 2016-06-13 06:34:0041[facility] FnxwnybPILAVIBXUJXH0710-13-68 06:34:50725Rakqbsgd AasgjgkTOESWKXYWKAX2985-07-66 06:34:008.5[facility] YtsfqlwJYNGFSAXQNGP9741-12-32 06:34:0032[facility] KqeixgqYTWVLVHJYPDG8384-08-90 06:34:77790Qpunspyp Vin RXGVLJENHJPZ5071-56-33 06:34:0037[facility] NpqizogHPFPHBRRWXUO1478-15-08 06:34:00 1.63[facility] HsocnxdDYLXJWCMLITI4844-55-32 06:34:004.3[facility] KDIKZBECNWVI4773-42-77 06:34:36392Hmaazblf HermannCHEM NWFAU0404-06-60 16:21:00 48.0[facility] YcdvdchDLJKXRFNLL6016-18-69 14:56:001:40 *ABN*(06/11/16 8:56 AM) [facility] AyckqmaDOXBWTWLSA5380-68-93 14:56:00Negative *NA*(12/22/16 8:56 AM) [facility] SypkiwpGEGOXTMYAA2285-32-59 14:56:00Negative *NA*(06/11/16 8:56 AM) [facility] FevawelVAYKZAKMHS8038-67-86 14:56:00Negative *NA*(06/11/16 8:56 AM) [facility] KybueifRMZHYWUFCS9192-39-92 14:56:00Negative *NA*(06/11/16 8:56 AM) [facility] TtjezvnBWPYLGHZLW1077-27-18 14:56:00Negative *NA*(06/11/16 8:56 AM) [facility] NtpbrdmSQJVXQYIFL0904-54-05 14:56:00Positive *ABN*(06/11/16 8:56 AM) [facility]annCHEM QDZYN0664-07-70 10:42:000.1[facility] HermannCHEM PANEL 2016-06-11 10:42:005.2[facility] HermannCHEM EZDUA9460-94-80 10:42:001.6[facility] HermannCHEM CXOUQ3557-71-12 10:42:0020[facility] HermannCHEM YBIVQ5795-01-64 10:42:003.6[facility] HermannCHEM CSBDX5077-34-04 10:42:000.4[facility] HermannCHEM YNFAL5727-82-15 10:42:0074[facility] HermannCHEM EYYUI7291-87-11 10:42:0014 [facility]annCHEM STDIS3919-57-18 10:42:0013[facility]annHEMATOLOGY 2016-06-11 10:42:001.06[facility] ZrtpqxpCUYLYOOIAH4554-01-27 10:42:00 Test Item Value Reference Range Interpretation Comments PT (test code = PT) 14.0 s 12.0-14.7 [facility] IvodxafKMOSIGUUUY2421-16-16 10:42:00 Test Item Value Reference Range Interpretation Comments PTT (test code = PTT) 36.4 s 22.9-35.8 [facility]SPE[facility] OGROTRSDI5999-78-17 10:42:0010.5[facility]annCARDIAC QABPNDY2508-22-67 02:08:001.8[facility]annCARDIAC UVFQFVL1392-36-56 02:08:00 2.9[facility]annCARDIAC KMTCRNP7703-83-64 02:08:000.061[facility] CARDIAC QFARLJY6107-25-60 02:08:79878Ajqvnaoi HermannCARDIAC YREQPSS8291-46-32 02:08:00<0.02[facility] HermannCHEM SPRQR7804-75-93 02:08:000.2[facility] CHEM HKFNZ9289-78-47 02:08:000.1[facility] HermannCHEM DXYCR3346-30-99 02:08:000.1 [facility]annCHEM NWQZV6625-71-33 02:08:005.7[facility]annCHEM PANEL 2016-06-11 02:08:000.5[facility] HermannCHEM WYLYC3502-75-93 02:08:001.8[facility] HermannCHEM CNNCN6646-56-62 02:08:003.9[facility]annCHEM VBGGD0117-70-80 02:08:0099[facility] HermannCHEM TEMUY8086-53-41 02:08:0021[facility]annCHEM MTQVV7684-26-16 02:08:0017[facility] HermannDRUG WVDEMP4595-69-19 02:08:00See Note *NA*(06/10/16 8:08 PM)[facility]annDRUG ZDBXZG8066-47-54 02:08:00Negative *NA*(06/10/16 8:08 PM)[facility]annDR[facility] FZMSJT8534-28-08 02:08:00Negative *NA*(06/10/16 8:08 PM)[facility]annDR[facility] FHGHYN1017-43-26 02:08:00Negative *NA*(06/10/16 8:08 PM)[facility]annDR[facility] ECPHBS1632-05-44 02:08:00Negative *NA*(06/10/16 8:08 PM)[facility]annDR[facility] BLWBVL0075-53-06 02:08:00Negative *NA*(06/10/16 8:08 PM)[facility]annDR[facility] SDQFXC5917-60-08 02:08:00Negative *NA*(06/10/16 8:08 PM)[facility]annDR[facility] NNPVDY7164-63-86 02:08:00Negative *NA*(06/10/16 8:08 PM)[facility]annDR[facility] GSUEKD1267-99-30 02:08:00Negative *NA*(06/10/16 8:08 PM)[facility]annDRUG EEWGRC5318-66-77 02:08:00Negative *NA*(06/10/16 8:08 PM)[facility] HlamsefMJWGPO3828-67-54 02:08:0075[facility] CgtxlbaOGBEZV6414-98-16 02:08:0027[facility] PotdwhiLJSTSD3651-41-92 02:08:56270 [facility] OjspceqDEQZAX3943-03-49 02:08:14247Ymbkfbxy PidpcbdYLFRON8295-74-60 02:08:004.29[facility] CumquzzQQNEIP5937-76-65 02:08:0031[facility]annURINE AND YISZS0207-49-60 02:08:006.0[facility]annURINE AND TIKJI2950-65-91 02:08:00 Negative (06/10/16 8:08 PM)[facility]annURINE AND ATQCX9884-40-87 02:08:00 Trace *ABN*(06/10/16 8:08 PM)[facility]annUR[facility] AND EPKJQ3968-16-68 02:08:00 Negative *NA*(06/10/16 8:08 PM)[facility]annUR[facility] AND KGQGF7291-88-36 02:08:004[facility]annURINE AND ZIHOL0977-80-21 02:08:005[facility] URINE AND ZIPQH8932-46-15 02:08:00Small *ABN*(06/10/16 8:08 PM)[facility] URINE AND FNGZA4231-75-64 02:08:001[facility]annURINE AND DLKLE9514-24-39 02:08:001.009[facility]annURINE AND YVZFZ9366-49-88 02:08:00Yellow *NA*(06/10/16 8:08 PM)[facility]annUR[facility] AND QJVDA3301-66-52 02:08:00Clear (06/10/16 8:08 PM)[facility]annURINE RNIU3144-61-38 02:08:00Negative (06/10/16 8:08 PM)[facility]annURINE ATFM7074-54-75 02:08:51428.4[facility]annURINE UALP8484-67-37 02:08:005.4[facility]annURINE FUSD1423-96-07 02:08:0069.80[facility] HermannCARDIAC AHRSAXJ2235-92-92 16:53:359285Naejgsev HermannCARDIAC IXKPKIF7529-05-70 16:53:00<0.02[facility]annCHEM PANEL 2014-06-26 13:02:000.9[facility] OhsiczxHFAMWEXSKP6246-11-21 12:29:4410[facility] ObrskoeQNBJHAJEGREUD5659-60-10 11:21:271[facility] HermannCHEM ANTFU3871-54-69 11:21:003.2[facility] HermannCHEM FJKBE5885-27-16 11:21:006.6[facility] HermannCHEM NEWBA1520-83-76 11:21:000.6[facility] HermannCHEM SPLLI9398-58-62 11:21:0059 [facility]annCHEM SLRZR8268-76-92 11:21:0011[facility] HermannCHEM PANEL 2014-06-26 11:21:0017[facility]annCHEM NSEBB1283-60-63 11:21:0099[facility]annCHEM CGQRA4919-57-88 11:21:54982Lgnnztyn HermannCHEM VFTFQ8149-61-68 11:21:003.4[facility] HermannCHEM HADGY2769-96-88 11:21:0011[facility] HermannCHEM DMIIG6061-54-97 11:21:000.8[facility] HermannCHEM JFSYL1193-58-53 11:21:04098 [facility]annCHEM OCCOC1293-95-15 11:21:0094[facility] HermannCHEM PANEL 2014-06-26 11:21:009.1[facility] HermannCHEM JSDBZ8232-20-95 11:21:0024[facility] HermannCHEM GMIZM1132-95-79 11:21:000.9[facility] HermannCHEM MRRVL7176-83-81 11:21:003.4[facility] HermannCHEM RKNYD0904-93-93 11:21:0014[facility] HermannCHEM AINYJ9292-46-77 11:21:0019.4[facility] HermannCHEM VWYGK6399-66-03 11:21:0081 [facility] WlevpecHHQICQIEYG0511-40-93 11:21:000.0[facility] HermannHEMATOLOGY 2014-06-26 11:21:001+ *ABN*(06/26/14 5:21 AM)[facility] CyudhkkGBBHDMDTUI7334-50-35 11:21:000.6[facility] LzzehxcEPMYZKJTYJ3067-67-64 11:21:000.1[facility] Vin AIKFQJFHKP9453-46-53 11:21:002.5[facility] FnxgsidXQULFOODFW0163-34-38 11:21:00 63.3[facility] NsdyxdsZSTVUZLOVY5220-55-83 11:21:005.6[facility] HermannHEMATOLOGY 2014-06-26 11:21:000.0[facility] DsiodljCAEQMCLGYW7859-86-68 11:21:000.9[facility] NesgeovSVLVGDHQEB4188-15-79 11:21:007.0[facility] RigkguxUDGRNVURMB5402-90-99 11:21:0028.8[facility] AkhptfuEDDVAINLZC1480-90-79 11:21:008.8[facility] Vin JNCWCMONHD0944-71-94 11:21:005.19[facility] SpaaattCKBOSTVWXX5363-99-65 11:21:00 14.4[facility] YktvlltGSJAGNXVVA5595-24-86 11:21:0043.1[facility] HermannHEMATOLOGY 2014-06-26 11:21:0083.1[facility] RdfvupsKTUCRCOEKG8072-73-26 11:21:00 Test Item Value Reference Range Interpretation Comments MCH (test code = MCH) 27.8 pg 27.0-31.0 [facility] VytjvvsBSLURZNGUG1014-64-71 11:21:0013.1[facility] HermannHEMATOLOGY 2014-06-26 11:21:0033.5[facility] WkgbyjfSWODOUVOLU5630-21-43 11:21:10796Osedfchq CfodmpiOMYSOIXXPC7974-65-51 11:21:0010.4[facility] LdkenanMPKVPIZFBG5345-43-28 04:48:55Performed (04/14/2013 23:48:55)[facility] YexvukhTHSYXPEPMD0287-71-60 04:48:55Negative *NA*(04/14/2013 23:48:55)[facility] GdithgoWRNROOQUNB7288-70-48 04:48:55Trace *ABN*(04/14/2013 23:48:55)[facility] HbkijrdJABVFWGGBH5745-79-66 04:48:55Negative (04/14/2013 23:48:55)[facility] LgdpovuRWRQVRWDDV0158-33-85 04:48:550.2[facility] ZrdkataENDIMCNSWK8758-04-64 04:48:55Negative (04/14/2013 23:48:55)[facility] YhqrqinOLEJXHSQLI0095-17-37 04:48:55Negative (04/14/2013 23:48:55)[facility] TgfvgoyKIMJOIJQPE9954-95-43 04:48:55Clear (04/14/2013 23:48:55)[facility] FvkupamXNTJEMSDCI9332-51-93 04:48:55Yellow *NA*(04/14/2013 23:48:55)[facility] GekoawiQBYICPPBVO0073-01-51 04:48:55 Test Item Value Reference Range Interpretation Comments UA pH (test code = UA pH) 7.0 1 5.0-8.0 N [facility] GicyeilCACCLMRYIR4662-78-22 04:48:55 Test Item Value Reference Range Interpretation Comments UA Spec Grav (test code = UA Spec 1.025 1 N Grav) [facility] PnmqqfuCPSFMEAOVI8237-82-58 04:48:55Trace *ABN*(04/14/2013 23:48:55) [facility] QsbmvxsOIEARFQGJ7139-60-03 04:28:00Negative *NA*(04/14/2013 23:28:00) [facility] NjxoovjNBJLEWXKE7297-32-43 04:28:31753Vxgfendx HermannCHEMISTRY 2013-04-15 04:28:004.1[facility] DbxowzcLRCTBUIPQ1851-72-56 04:28:0010.5[facility] BxqenayLWSWCROPF2666-70-27 04:28:006[facility] BbgxyheYDDXWFJQJ0485-31-60 04:28:00 0.7[facility] UxjsyqxSFNEKDTXL2347-44-45 04:28:24270Slvxvhud HermannCHEMISTRY 2013-04-15 04:28:002.9[facility] WrytgvlCUQDGGXNF1715-60-77 04:28:0020[facility] OngeotyTXDKMBIFE9684-12-28 04:28:000.5[facility] WpobvyyFBFHJRSXO3439-61-74 04:28:0089[facility] TousxloNIQEVXSLK9800-04-92 04:28:0011[facility] EMNSJCERD3839-88-95 04:28:000.5[facility] FjpbaxrUJEIBVJAH3681-05-06 04:28:003 [facility] EbqmiekMFCVYXMBZ8215-91-99 04:28:98807Bzoxpndj HermannCHEMISTRY 2013-04-15 04:28:007.0[facility] XnevoroSSIIUELKQ5633-72-39 04:28:008.7[facility] AzuyessHKKWIMFJS0359-60-27 04:28:0029[facility] DkjdnsuFRHYPSUAY3601-42-65 04:28:31721Pxpyszbf StfmtpfCJYEBLOIG5855-86-07 04:28:003.5[facility] UDAGYHEMA0451-67-53 04:28:66805Kaxszrpx ZakebzhWMEPORAQKN0793-82-87 04:28:00 Test Item Value Reference Range Interpretation Comments PROTIME (test code = PROTIME) 12.1 s 12.0-14.7 N [facility] HevmbcdWMNXGPLLQF4169-36-47 04:28:00 Test Item Value Reference Range Interpretation Comments aPTT (test code = aPTT) 39.0 s 22.9-35.8 H [facility] HmxxuenCIZUGLLDWT6317-12-04 04:28:000.90[facility] HermannHEMATOLOGY 2013-04-15 04:28:00 Test Item Value Reference Range Interpretation Comments MCH (test code = MCH) 29.4 pg 27.0-31.0 N [facility] DtyxwavBWHRDVEABP3209-02-07 04:28:0086.1[facility] HermannHEMATOLOGY 2013-04-15 04:28:0029.4[facility] KmwohyoFXWRSZTXEU3066-08-20 04:28:0014.0[facility] AzjaoecIHTWKHSJLV5015-09-22 04:28:006.2[facility] ItwklazVOUXGFZHEX2416-16-15 04:28:00599Xtepyejn ZmmygaqCYHTDIZGMI8605-62-50 04:28:0034.1[facility] ORAIXQWYXU0111-60-58 04:28:003.41[facility] OmfhcgvEFDFRLLCGT2610-33-83 04:28:00 10.0[facility] MkvqguzZRMVFWRNSY1578-22-11 04:28:0010.1[facility] HermannHEMATOLOGY 2013-04-15 04:28:004.4[facility] ElujdxzBHJLMWKAQQ6724-21-05 04:28:000.7[facility] NbrvprrYZBYHAJLDS0469-64-46 04:28:0070.7[facility] ObnbjiwBNSEVOIJDB0467-93-28 04:28:000.3[facility] GrstixuETINEYLNAV5941-59-58 04:28:001.2[facility] Vin LMNOYOBBAU8293-77-67 04:28:004.5[facility] HaonnirTJPPPCWBMP0780-79-46 04:28:004.1 [facility] CvhfeszELIYELDQFM0782-28-72 04:28:0020.0[facility] HermannHEMATOLOGY 2013-04-15 04:28:000.0[facility] XoathpfDFNIXSIDCO3736-02-36 04:28:000.3[facility] HermannBEDSIDE GLUCOSE CVKARYA3934-05-04 01:12:89191Lvkelajk HermannURINALYSIS 2012-03-14 23:40:00Trace *ABN*(03/14/2012 18:40:00)[facility] HermannURINALYSIS 2012-03-14 23:40:00 Test Item Value Reference Range Interpretation Comments UA pH (test code = UA pH) 6.0 1 5.0-8.0 N [facility] PcprvyoUXZLGPLINK3157-93-44 23:40:00>=80 mg/dL *NA*(03/14/2012 18:40:00)[facility] MarshallChwebyrLPNOCAIEVP6239-04-18 23:40:00>=1000 mg/dL *ABN*(03/14/2012 18:40:00)[facility] ZbtqvjuWZTAVRFQRB6228-01-08 23:40:00Negative (03/14/2012 18:40:00)[facility] SrnjgsuWAIDILNZZZ5813-23-37 23:40:00Negative (03/14/2012 18:40:00)[facility] MarshallGgtvzdtTETYLJAXPQ8185-13-48 23:40:000.2[facility] TjozmhcUSJNBRVPMY5036-62-57 23:40:00Negative (03/14/2012 18:40:00)[facility] MarshallAucdrmeAAPCGWDUZZ9103-44-41 23:40:00Negative *NA*(03/14/2012 18:40:00)[facility] MarshallAgcgnkqBGZGXZZJVY7652-50-03 23:40:00Clear (03/14/2012 18:40:00)[facility] MWPDQIAPQN8593-99-92 23:40:00Yellow *NA*(03/14/2012 18:40:00)[facility] NUWEZAATRE2216-93-35 23:40:00>=1.030 *ABN*(03/14/2012 18:40:00)[facility] MarshallLfstskiIAXZODYYNG6309-60-88 23:40:00Occasional /LPF (03/14/2012 18:40:00) [facility] MarshallKqfvpslCTBEFDOADO2097-34-82 23:40:003-5 /HPF (03/14/2012 18:40:00) [facility] MarshallFgqzxypDOCTTVCCHR9464-19-40 23:40:00Occasional /HPF (03/14/2012 18:40:00)[facility] MarshallWijnfnhMNVZSNSOE1864-01-41 22:50:00Negative *NA*(03/14/2012 17:50:00)[facility] MarshallRhjmmtsDMHBMMFYP7614-88-47 22:50:0045[facility] HermannCHEMISTRY 2012-03-14 22:50:001.2[facility] SjbcvzgECHBRPZAV1099-39-16 22:50:003.8[facility] RumtrsiEVQVARZDA7988-63-30 22:50:0021[facility] NkovoddJDOMNBHVI7803-12-50 22:50:0016.8[facility] VuxpqrrWRDRJTNSF6344-43-78 22:50:001.1[facility] AIXVSZGAQ4313-48-13 22:50:008.2[facility] OlryvzeLDJDOZCFZ2410-64-79 22:50:003.8 [facility] OwxkhloGWYQNKXMI9235-90-76 22:50:000.7[facility] HermannCHEMISTRY 2012-03-14 22:50:21606Knjpsjel VekzkgzVYDTPSKWN1884-47-20 22:50:0099[facility] RajjpcfFSWNPKBLG2327-68-97 22:50:0027[facility] MkwdvsrPABCUSAAA0217-51-53 22:50:99256Tggjfjht TjjhasiXIQLIBXJU9821-21-56 22:50:0015[facility] KYOKOIQUR8563-72-54 22:50:0024[facility] XlvlfahCBJEFJTBG4918-73-09 22:50:0020 [facility] UdhenyfPDNSTSPXI8267-93-56 22:50:0067[facility] HermannCHEMISTRY 2012-03-14 22:50:004.4[facility] PnjacnpCBNGCWHUC2674-52-08 22:50:009.9[facility] VwcnrduGRFGRMPZLC3252-19-57 22:50:0011.8[facility] JjfagnfLBADXWAXPE6216-90-36 22:50:0035.9[facility] PhdwkkdWBTPGLTKLQ6404-78-67 22:50:00 Test Item Value Reference Range Interpretation Comments MCH (test code = MCH) 31.2 pg 27.0-31.0 H [facility] WxwzimzFPJCZTRINL6372-96-47 22:50:52487Hy[facility]de HermannHEMATOLOGY 2012-03-14 22:50:0013.1[facility] QuekqyfCAJMXIXDLI5509-47-75 22:50:0040.7[facility] YqiscxsFPWMUTBASF7307-90-01 22:50:0014.6[facility] JyljwzdSMEICSETFQ2869-17-36 22:50:0087.0[facility] JhqdgfpIGIXKJHOYM1050-96-47 22:50:0011.7[facility] XTFPFMXSRR9626-03-48 22:50:004.68[facility] JzqkkgcHFVGFDGSUI4335-70-83 22:50:00 0.0[facility] NgtxybnBEULJXYQVL9214-51-69 22:50:000.2[facility] HermannHEMATOLOGY 2012-03-14 22:50:000.0[facility] EcsamzxGZLXTTWRKB2665-48-13 22:50:000.4[facility] KjilqoeEAXNBMTMGN8686-38-03 22:50:0010.6[facility] NljjqvfMSOKCFELQR1186-17-08 22:50:000.7[facility] NwzfxpyUVPVJRQQYW0781-52-22 22:50:003.4[facility] DHVQPFKVMB5381-53-53 22:50:00Normal (03/14/2012 17:50:00)[facility] TWXBWFPDNQ8789-57-90 22:50:006.0[facility] UkepavgJJSSHZNUNC2945-59-37 22:50:000.0 [facility] FyqdkffEQOGUAVXZW6814-78-06 22:50:0090.4[facility] HermannHEMATOLOGY 2012-03-14 22:50:00Normal (03/14/2012 17:50:00)[facility] HermannBEDSIDE GLUCOSE FZEEIRS4849-79-80 23:43:53074Meolkjxd HermannBEDSIDE GLUCOSE XNJSXOG8002-35-68 17:40:50526Clsdwxtz HermannBEDSIDE GLUCOSE LGGUEZY8602-00-45 13:34:08105Hfgyanqm ObwmpdvAOZSINWYZ6512-41-35 00:00:00Negative (11/28/2011 19:00:00)[facility] ThvhyerUUYJGPFHSC5714-90-39 00:00:00Performed (11/28/2011 19:00:00)[facility] UfzwjixWJDDLNZYRG8936-43-24 00:00:00Occasional /LPF (11/28/2011 19:00:00) [facility] XcnkybgFVFRWTRAWF9741-43-23 00:00:00None Seen (11/28/2011 19:00:00) [facility] MarshallDmioyfdTJSRPFWNZK5642-93-05 00:00:00Negative mg/dL (11/28/2011 19:00:00)[facility] MarshallHcwewmaKYZTPHQYLY1467-25-21 00:00:00 Test Item Value Reference Range Interpretation Comments UA pH (test code = UA pH) 7.0 1 5.0-8.0 N [facility] MarshallHvheerdFTOIVLJGKG1678-18-68 00:00:00 Test Item Value Reference Range Interpretation Comments UA Spec Grav (test code = UA Spec 1.020 1 N Grav) [facility] MarshallWjoucisYKPGIMFAMO0955-61-70 00:00:00Clear (11/28/2011 19:00:00)[facility] MarshallEeawtrnWDSBKMTPEQ2809-21-84 00:00:00Yellow *NA*(11/28/2011 19:00:00)[facility] MarshallDpzparuZUDQJXUZNQ5613-15-11 00:00:000.2[facility] KhwuduzCZCKUNUUYB3181-70-48 00:00:00Negative (11/28/2011 19:00:00)[facility] MarshallMvzdjkpKLRMDZJRET8182-69-03 00:00:00Negative *NA*(11/28/2011 19:00:00)[facility] MarshallIccqiawIAPKLUAAGE5587-30-63 00:00:00>=80 mg/dL *ABN*(11/28/2011 19:00:00)[facility] MarshallannURINALYSIS 2011-11-29 00:00:00>=1000 mg/dL *ABN*(11/28/2011 19:00:00)[facility] SPJRCKANZC5203-55-31 00:00:00Negative (11/28/2011 19:00:00)[facility] ZPVTUGXJKS4476-41-81 00:00:00Negative (11/28/2011 19:00:00)[facility] Marshall[facility] VHFQIANIB4685-58-57 20:41:0060[facility] KwmkkktYNOSXFUUJ4964-48-67 20:41:0041 [facility] UmfigppVKWLNXYJQ5991-38-11 20:41:007.45[facility] HermannCHEMISTRY 2011-11-28 20:41:0037.0[facility] PaauhspGOOEQENIU9598-01-97 20:41:0092.0[facility] JaxlewgSEBPMERPI4880-46-68 20:41:004[facility] McchmznKAFMRXLDS4218-16-15 20:41:00 28.5[facility] ClrupnuTRVXCALKO7268-95-79 20:00:001.6[facility] HermannCHEMISTRY 2011-11-28 20:00:56794Ptoippid WazeccxRQCIQWPLS4029-81-14 20:00:004.2[facility] ZpknbbiTWSMRZOZY0860-27-06 20:00:0023[facility] QvrbabbMZQIIKMXE4272-88-32 20:00:0098[facility] OjauallUVAODYZGU3843-91-88 20:00:003.8[facility] DJQIFEPVP2836-59-31 20:00:57934Agfxpuph SogynkvRFGCJZOFY5301-83-95 20:00:000.7 [facility] VoomdxaUIXBHDHRL0660-70-66 20:00:009[facility] VtikrjiHCRFJAZVN4280-90-47 20:00:87834Sfbytmre NeywcsqHELJTTUYC7788-57-03 20:00:0013[facility] WMVOXFLJJ5995-16-91 20:00:0020.8[facility] CaawvrkLUVAJSPSW3496-74-71 20:00:009.3 [facility] CdubzrjKGRJRLMSP6715-28-26 20:00:006.7[facility] HermannCHEMISTRY 2011-11-28 20:00:001.7[facility] CvokimkYSVZASATO6561-35-63 20:00:002.5[facility] IsryvclNAWNBQVUL3729-86-40 20:00:0018[facility] EikdwfkSRXHIKHLK9139-82-75 20:00:0062[facility] MbmctoyCLYIAYAZY6883-94-47 20:00:0032[facility] LTPSAWOOJ3930-39-40 20:00:000.7[facility] FocmcpjKHVMJPWDOR4741-22-15 20:00:001+ *ABN*(11/28/2011 15:00:00)[facility] ZjgmczqMVNKJWUUGG1734-66-54 20:00:000.1 [facility] AryzvkvNABWDZXVXM7831-36-00 20:00:000.0[facility] HermannHEMATOLOGY 2011-11-28 20:00:000.0[facility] SynwhqjOTYESBPONO5140-91-14 20:00:00Slight *ABN*(11/28/2011 15:00:00)[facility] KomknblNCXJUKKQDH5555-52-92 20:00:00Slight *ABN*(11/28/2011 15:00:00)[facility] RseloqrDLLNQYBOET2951-65-70 20:00:005.7 [facility] JdimqabNTJUCSXXUQ4253-76-09 20:00:000.8[facility] HermannHEMATOLOGY 2011-11-28 20:00:000.2[facility] YmnmnrtNAZCLHPABU4891-70-57 20:00:000.0[facility] DwpzltgQCBEZMWOSU9228-65-97 20:00:001.9[facility] MtapgmyZGPWROZMZC2424-17-10 20:00:0086.2[facility] BnlmzvyYNPNGMDQJF0624-99-42 20:00:0011.7[facility] VTTJJWLMZE5064-18-73 20:00:0010.8[facility] KmsxsynLNVVWLDUCR0693-30-28 20:00:00 161[facility] KznyffyTZFJWIDTHO3251-32-53 20:00:0035.6[facility] HermannHEMATOLOGY 2011-11-28 20:00:0012.4[facility] KpbdetnENABMHPWYP1975-34-91 20:00:00 Test Item Value Reference Range Interpretation Comments MCH (test code = MCH) 30.7 pg 27.0-31.0 N [facility] EjaihgrMASCDREVYT5572-65-08 20:00:0086.1[facility] HermannHEMATOLOGY 2011-11-28 20:00:0033.6[facility] CcagedzJBOTJBSZKC1307-59-81 20:00:0012.0[facility] VzdztzdRFBWUXQGMG9815-04-52 20:00:003.90[facility] NjdxpqlQGOBAYALBW3368-46-17 20:00:006.6[facility] JrwglsjBWPIPDFXS6677-60-34 19:51:00See Note 5*NA*(11/28/2011 14:51:00)[facility] MvbfosxGTMGTEBSW3963-99-11 19:51:00Negative *NA*(11/28/2011 14:51:00)[facility] TmrxxbjTQYDOOKIC7006-41-61 19:51:00Negative *NA*(11/28/2011 14:51:00)[facility] TjtrlapPZRFNHSPV3025-17-51 19:51:00Negative *NA*(11/28/2011 14:51:00)[facility] FekwrfeBJWYAOGUR1225-20-73 19:51:00Negative *NA*(11/28/2011 14:51:00)[facility] JmbkgxhYQLMKSJOK2784-64-62 19:51:00Negative *NA*(11/28/2011 14:51:00)[facility] AqxdkoxTJLYPXYTW1610-80-51 19:51:00Negative *NA*(11/28/2011 14:51:00)[facility] ArbryqmEEDVPWFIA8550-70-72 19:51:00Negative *NA*(11/28/2011 14:51:00)[facility] HermannBEDSIDE GLUCOSE HBJRSWN7212-07-42 16:20:93322Dogwhfjd IebhyhgTMQAKQJKE6793-11-17 15:30:00Negative (09/18/2011 10:30:00)[facility] KjrqsdxMOXQOALUOV4048-94-07 15:30:00None Seen (09/18/2011 10:30:00)[facility] EipxxsmPAFGLEQTPO1465-29-63 15:30:00None Seen (09/18/2011 10:30:00)[facility] ZxrltfzBKLUOLOKRE1784-47-91 15:30:00None Seen (09/18/2011 10:30:00)[facility] ZibxgraKPXAJUHJYM1593-60-89 15:30:00Few /HPF *ABN*(09/18/2011 10:30:00)[facility] IepzlopBBWAUFFDCN8520-33-23 15:30:00Performed (09/18/2011 10:30:00)[facility] LnyryfpCDCCSXBVJO2820-99-47 15:30:00Rare /LPF (09/18/2011 10:30:00)[facility] MarshallUsfgcxpLPEMVODARB2654-93-00 15:30:0015 mg/dL *ABN*(09/18/2011 10:30:00)[facility] MarshallVnhvkpwGXATSALSOL6569-11-21 15:30:00>=1000 mg/dL *ABN*(09/18/2011 10:30:00) [facility] MarshallEojjifdMHWVJILNKC6743-51-21 15:30:00Trace *ABN*(09/18/2011 10:30:00) [facility] MarshallZhcvauaLTQYXQJLFY2068-24-35 15:30:000.2[facility] HermannURINALYSIS 2011-09-18 15:30:00Negative (09/18/2011 10:30:00)[facility] MarshallannURINALYSIS 2011-09-18 15:30:00Negative *NA*(09/18/2011 10:30:00)[facility] HermannURINALYSIS 2011-09-18 15:30:00Negative (09/18/2011 10:30:00)[facility] HermannURINALYSIS 2011-09-18 15:30:00Negative (09/18/2011 10:30:00)[facility]UR[facility] 2011-09-18 15:30:00 Test Item Value Reference Range Interpretation Comments UA pH (test code = UA pH) 7.5 1 5.0-8.0 N [facility] ObizuhtOZDIPXWPYW3530-80-39 15:30:00 Test Item Value Reference Range Interpretation Comments UA Spec Grav (test code = UA Spec 1.010 1 N Grav) [facility] IuwpbclAAEERLPECY6977-03-61 15:30:00Slight Cloudy (09/18/2011 10:30:00) [facility] MarshallAqrpmnvKBKKFNIMDT7782-33-82 15:30:00Yellow *NA*(09/18/2011 10:30:00) [facility] MarshallWtpzbimJNBGRMRTJ8435-89-41 14:07:004.4[facility] HermannCHEMISTRY 2011-09-18 14:07:001.6[facility] HermannBEDSIDE GLUCOSE RNADRZH6098-40-09 14:01:00 >400[facility] ZxnigewBMAKLDEDW6201-40-10 13:52:0024[facility] HermannCHEMISTRY 2011-09-18 13:52:0032.0[facility] TsnjedgZWEVLOWDK7536-40-89 13:52:0044[facility] DbujodgQVGONMWES1848-35-62 13:52:007[facility] ZphbgxwQYUXRXINH9216-84-34 13:52:00 48.0[facility] YeggmgoDJHUBWCTP4039-37-68 13:52:0037.0[facility] HermannCHEMISTRY 2011-09-18 13:52:007.47[facility] YgqrzgfAXZBVDQRP1632-96-49 13:52:0010.1[facility] OzrozcpJYIFWNEPL1269-33-94 13:52:0092[facility] HfvaastIMCHZYGUP0945-94-20 13:52:0030[facility] McjbmswCDPQWPLHY6081-27-43 13:52:003.5[facility] YWRQBZMVD5434-49-80 13:52:78502Spumwiyv DunczglRYFBANWBD5180-51-45 13:52:001.3 [facility] VnsycxaEAVVSONMK2634-80-45 13:52:95181Ycafifhn HermannCHEMISTRY 2011-09-18 13:52:0017[facility] VqaismaTXDZKTEMB1822-73-40 13:52:0014.5[facility] MrmufzsJDXTOPFAEI3118-81-13 13:52:0012.0[facility] ChilrpkEYMNSNTNDP9926-71-35 13:52:30768Cfmncnjy SwsibvqLIMRJLXNHA4099-01-43 13:52:0033.7[facility] WJXVZETLFX8316-13-99 13:52:00 Test Item Value Reference Range Interpretation Comments MCH (test code = MCH) 28.5 pg 27.0-31.0 N [facility] VqvvhewPRVQWYXMCP9086-35-08 13:52:0015.1[facility] HermannHEMATOLOGY 2011-09-18 13:52:0084.6[facility] FonllzzTOGMICOWVW4720-40-43 13:52:0036.4[facility] AwwtfzrGZGPSMONEZ0725-22-50 13:52:0012.3[facility] HhdxjijAHQPCVMGWH5707-56-94 13:52:004.30[facility] QnmycmsXNLJFDWOFJ1106-46-96 13:52:0011.7[facility] FMEIGNDENB3624-44-04 13:52:002.9[facility] WmecvvsJYZBENKUUR6011-07-05 13:52:000.2 [facility] VxoadipVAYVZZQIUO5824-37-95 13:52:000.0[facility] HermannHEMATOLOGY 2011-09-18 13:52:000.0[facility] GzqwhgdPSOGTUAKYM6736-42-30 13:52:000.3[facility] GuzjzfwIKGAOYJXKX5422-13-94 13:52:0092.0[facility] VilnpvxZQOQXQMBHK5332-67-58 13:52:004.9[facility] XleiuxwGZZYACEWZP6122-07-07 13:52:00Rare *ABN*(09/18/2011 08:52:00)[facility] OrdtatgJHDQTQSZPG7769-86-98 13:52:00Slight *ABN*(09/18/2011 08:52:00)[facility] SmufezeNWGJFOAZAU8535-91-71 13:52:001+ *ABN*(09/18/2011 08:52:00)[facility] YgjfyxzBZEQZLVKMG0557-08-94 13:52:001+ *ABN*(09/18/2011 08:52:00)[facility] QlcqslnWEPLRAQWHB9547-19-54 13:52:000.6[facility] OAIQTURNPE7384-60-17 13:52:0010.8[facility] NyfxlkjYPNSOGFALE6115-53-81 13:52:00 0.0[facility] IeumlvqCHKQBBHXWP3165-48-71 13:52:001+ *ABN*(09/18/2011 08:52:00) [facility] PjrmdoaHNUECJUPFC3483-48-08 13:52:00Negative *NA*(09/18/2011 08:52:00) [facility] HermannBEDSIDE GLUCOSE UNKFUDP8069-70-11 17:34:67487Llqdgsik Vin BEDSIDE GLUCOSE VMIOOEW6968-05-54 11:43:0091[facility] HermannBEDSIDE GLUCOSE BLEHJZE8026-85-22 02:45:90738Yszrjyih UsusimjMCDETVLTN2284-30-18 08:47:93070 [facility] NiuqwmiBECTZKFYT4996-75-63 08:47:98585Egogymmb HermannCHEMISTRY 2011-09-08 08:47:0029[facility] DafoxahGOAHWCICZ4978-59-71 08:47:05880Zfvdydlf OvswhgqJRDIQYHLI7652-87-92 08:47:0010[facility] VrbacknWVXZIEFAS9762-82-32 08:47:003.8[facility] WfkokixKVGEHRIRS0914-73-46 08:47:000.6[facility] JGAGJTOSU9714-71-47 08:47:008.5[facility] ZrnowcxVXBHCGSCV3083-31-33 08:47:0014.8 [facility] RnpzpduPQDPOWTKSK8354-61-35 08:47:00 Test Item Value Reference Range Interpretation Comments MCH (test code = MCH) 28.9 pg 27.0-31.0 N [facility] EmykgphESNGUIGTQL5591-10-14 08:47:0082.1[facility] HermannHEMATOLOGY 2011-09-08 08:47:0025.9[facility] EbtviutTAVCNUGHSN6199-30-26 08:47:92185Cnwzsmuo JzafnunLXAHJNTAAN6051-57-81 08:47:0014.5[facility] CluzdbgNZKDNZLUFD0731-16-09 08:47:0035.2[facility] ZapgdnyCPMWTUYLGT0656-25-48 08:47:009.1[facility] PVUFRYIXMG5839-82-64 08:47:003.15[facility] SdfzinnSVERDOUCZD4897-64-45 08:47:00 9.0[facility] BcdimotFZCXACUGJB6657-29-29 08:47:006.3[facility] HermannHEMATOLOGY 2011-09-08 08:47:000.0[facility] GwmbgwxLYECRVZIHZ0550-87-48 08:47:000.0[facility] NngnqcfFVILAGNBVU4321-45-34 08:47:003.8[facility] QtnjrrfMQCQILXNWI0405-91-27 08:47:002.0[facility] BfqqygyIHWJQQFKKP1816-92-12 08:47:000.5[facility] ADQZZBSSDS2390-25-66 08:47:000.7[facility] YawncikXZIGGZINNN5841-23-86 08:47:006.2 [facility] CucrvpgATSUODNZBS4768-82-87 08:47:0061.1[facility] HermannHEMATOLOGY 2011-09-08 08:47:0031.5[facility] FdrkfygQKFYETYSQA8263-70-56 08:47:000.4[facility] XwheaepVMCCMJKCI1071-16-39 10:54:0027[facility] VlbozutKJIGTQPQM7582-09-32 10:54:83291Lljciwnv ChbsuaaSLDHKVDXJ2499-66-91 10:54:000.5[facility] VNBWCHVGV6034-18-88 10:54:0010[facility] ZsyqyjuSFXFDHNFF4937-78-28 10:54:004.1 [facility] HuzokunGUMJGOGQS9620-52-04 10:54:04603Lwnvrmkm HermannCHEMISTRY 2011-09-07 10:54:0083[facility] AlcepupLYOVTPQPW6506-10-87 10:54:008.4[facility] PovmmxyABNNUPCQP1284-21-44 10:54:0014.1[facility] LwjvvmmGASXHWZUND9018-71-15 10:54:0035.5[facility] WfqrlhpVQIEQTSATC0969-67-37 10:54:004.7[facility] QFMOQQMJET4458-61-54 10:54:0092.6[facility] QjebgfcXSGZATFYLC1829-91-81 10:54:00 Test Item Value Reference Range Interpretation Comments MCH (test code = MCH) 31.4 pg 27.0-31.0 H [facility] ZwzucngWKHFQTMDMX4029-79-24 10:54:003.84[facility] HermannHEMATOLOGY 2011-09-07 10:54:0012.1[facility] SzeohvrRIBRVQSCCD4017-58-52 10:54:63690Zoormlso NwqlmxnEMAENHYCLX3859-67-78 10:54:0012.7[facility] EpwmoltFVPAGRFENU4429-08-31 10:54:0033.9[facility] DfhbuqbSNXHWVICMC3481-16-69 10:54:007.2[facility] Vin MYTDJILMCZ8524-25-35 10:54:000.95[facility] SjpueskPDUSKBKGUY0102-60-15 10:54:00 Test Item Value Reference Range Interpretation Comments PT (test code = PT) 12.7 s 12.0-14.7 N [facility] RwgpmclTEVNXCRHTO9297-94-67 10:54:00 Test Item Value Reference Range Interpretation Comments PTT (test code = PTT) 28.5 s 22.9-35.8 N [facility] IawmcahMUZOIGAJIA0684-18-71 10:54:000.1[facility] HermannHEMATOLOGY 2011-09-07 10:54:000.0[facility] JgoxuriQWABNFEJDH9197-19-55 10:54:000.4[facility] HqfcwtfZGFGJLUNDV6757-22-23 10:54:002.1[facility] ZfogyuzXHFDFMNEQB8284-95-85 10:54:009.0[facility] XwrppoeZYDLDZVEAV9810-09-82 10:54:002.4[facility] Vin LYLRAFOBEP9231-37-38 10:54:000.4[facility] IwihbscNKJKNQADNM7655-05-55 10:54:002.0 [facility] TdzrgfuBMYVYWFXGF6948-58-54 10:54:0042.8[facility] HermannHEMATOLOGY 2011-09-07 10:54:0045.4[facility] QwdtrvgVJTPTPZKL5388-97-88 10:02:30987Ssrhplur GtzuyxsGOHUNAPFI8280-15-26 10:02:004.1[facility] KvxqkciIPDTNACZC7306-44-11 10:02:13931Ktoiquiy XiatwxyKSRXETSNT9010-04-34 10:02:0029[facility] IEUCEVTUL2381-13-70 10:02:008.7[facility] LsefvucIZLKNCTJC4819-54-47 10:02:006 [facility] GdxpxqqAPLSMLHDA2694-07-08 10:02:000.6[facility] HermannCHEMISTRY 2011-09-07 10:02:55608Qmosztfn LbxfybmYOUINHGRP7572-74-81 10:02:0013.1[facility] GaryhooNOLUDQCAPM4833-19-40 10:02:000.0[facility] KmiwlbdQOZLMDSYSD1181-76-87 10:02:000.3[facility] OhuugfyKRLYPOUVHB2426-90-40 10:02:000.1[facility] Vin RXXLIHVIHY8603-66-81 10:02:002.8[facility] LzbmxpzTACVUBAYWM7665-16-00 10:02:001.7 [facility] EuxsuwyUKODTAKHLU0245-52-03 10:02:000.6[facility] HermannHEMATOLOGY 2011-09-07 10:02:006.9[facility] CfnwpghEKCHACHMTY8969-19-34 10:02:002.0[facility] RpchfxmRXKMNGIZVX7256-23-66 10:02:0055.8[facility] AittcasWLNGRGWBKP6949-61-35 10:02:0034.7[facility] VjfzdjeQUOMPEQQLI3206-19-37 10:02:00 Test Item Value Reference Range Interpretation Comments PTT (test code = PTT) 32.2 s 22.9-35.8 N [facility] SbuwvjtSOVYZEAOLR4263-56-29 10:02:00 Test Item Value Reference Range Interpretation Comments PT (test code = PT) 13.3 s 12.0-14.7 N [facility] LllkronUGSYMXBQSI9107-93-08 10:02:001.01[facility] HermannHEMATOLOGY 2011-09-07 10:02:0027.5[facility] EqpdcrjMAQZIINDZH4248-88-20 10:02:003.34[facility] SzyandzUDTNFWUGBM3018-92-30 10:02:009.7[facility] ZfmqrtzVMSKWAXNVO7578-58-30 10:02:005.0[facility] JggmbgdTDRMGSCBZR1759-84-74 10:02:009.2[facility] Vin ZIDQVXQGOV7117-28-84 10:02:15238Fhavttcf PwbmrwdIJAFDHWMOI9152-24-93 10:02:00 14.3[facility] HynanvhRQEDOPYQSM8530-34-10 10:02:0035.2[facility] HermannHEMATOLOGY 2011-09-07 10:02:00 Test Item Value Reference Range Interpretation Comments MCH (test code = MCH) 28.9 pg 27.0-31.0 N [facility] GqgwopsONABOOXMKR4400-59-99 10:02:0082.1[facility] HermannCHEMISTRY 2011-09-03 09:24:002.1[facility] JufgfeqUCSCJKOUY1302-40-23 17:10:0037.0[facility] DdfizynWBBAKTRVK3933-08-31 17:10:0027.0[facility] KwtfpcjDSJYVPWKW2273-96-17 17:10:0047[facility] NisfzpuOESDBAXGW3186-92-15 17:10:007.37[facility] Vin XDUFTFEFB6581-88-19 17:10:001[facility] IkttweqWOUGHEKSN7388-15-40 17:10:0027.2 [facility] HxguwdbGTMVVUIAT4259-60-40 17:10:0019[facility] HermannCHEMISTRY 2011-09-01 13:09:001.0[facility] HpnjbgyIBMAUPTVS6653-34-70 12:20:00Negative (09/01/2011 07:20:00)[facility] EmkjzrlKLHTPJGNXL2956-46-51 12:20:00Occasional /LPF (09/01/2011 07:20:00)[facility] PhfxcvkLBHDAIQVMW3278-36-48 12:20:00Negative (09/01/2011 07:20:00)[facility] VqbrsalXZDSESYSBK9882-48-38 12:20:00Negative (09/01/2011 07:20:00)[facility] CnchnxmWUBNCFCPPP6119-76-78 12:20:000.2[facility] FkfnaomNJVHBEOEIJ2732-28-87 12:20:00Negative (09/01/2011 07:20:00)[facility] EmrmjkoHMGSRQWHDS5840-38-76 12:20:00>=80 mg/dL *ABN*(09/01/2011 07:20:00) [facility] SabmjazDOENMSDJIH1040-75-20 12:20:00Negative (09/01/2011 07:20:00) [facility] KlthqbgQHILANMKCW3807-27-38 12:20:00 Test Item Value Reference Range Interpretation Comments UA pH (test code = UA pH) 6.0 1 5.0-8.0 N [facility] EknrtayHTMYOZAXOC2433-80-93 12:20:00Negative (09/01/2011 07:20:00) [facility] IcctkmeXVLTAPCYCX3751-88-95 12:20:00>=1000 mg/dL *ABN*(09/01/2011 07:20:00)[facility]UNLXCI3936-43-15 12:20:00 Test Item Value Reference Range Interpretation Comments UA Spec Grav (test code = UA Spec 1.035 1 H Grav) [facility] MayqslgGPIEXCNVRT7006-10-87 12:20:00Clear (09/01/2011 07:20:00)[facility]azowttMBXCNIUZJJ7813-81-97 12:20:00Yellow *NA*(09/01/2011 07:20:00)[facility] XycmfsfSETRCJDBP3975-91-55 08:00:002.8[facility] BcpjbebVPWOUYLKZ5543-21-27 07:47:001.5[facility] ImphfocAVGNYIEUNQ2512-72-89 07:47:00Slight (09/01/2011 02:47:00)[facility] PnlephoYIQGQTRVMH8485-36-83 07:47:001+ *ABN*(09/01/2011 02:47:00)[facility] CcyuigqCWKLLJVPPQ9008-89-84 07:47:00Slight *ABN*(09/01/2011 02:47:00)[facility] QnbudzrCJJFKWHMKB6547-83-07 07:47:00Slight *ABN*(09/01/2011 02:47:00)[facility] HermannBEDSIDE GLUCOSE SEVVZOP7223-03-76 17:02:88829Mkdxisth HermannBEDSIDE GLUCOSE GJPHTJO8944-88-03 13:45:34594Ooliesmd HermannCHEMISTRY 2011-08-23 10:22:003.0[facility] RxoxhzrWPADPTUYW6125-55-82 10:22:001.8[facility] TkahfupPVYCABZEN5565-41-51 10:22:18935Fncqsgyx GlzbvowQBFRCHGWY7862-97-17 10:22:003.0[facility] FujqzfnSROYJRYNS9965-37-44 10:22:70047Ogmrgzwy [place] LAVLBBQNL5461-56-68 10:22:000.6[facility] ZpdobfsYMMNZDEKC3995-19-29 10:22:0023 [facility] UgftdkiSNEJBRWUC4344-96-86 10:22:007.3[facility] HermannCHEMISTRY 2011-08-23 10:22:43857Ntcvdccf BibpmygBZKKECJML8595-77-79 10:22:0014.0[facility] XbetvbkDKGTLPRDN0929-97-69 10:22:005[facility] GdnbeykZRSUACGQGI2763-98-30 10:22:0069.6[facility] OqocjanOFNEXTFUZK0134-23-42 10:22:0021.5[facility] Vin KRPTUSRQLP1231-31-36 10:22:007.6[facility] AxjndrhEXHVVCYMBC4472-20-66 10:22:001.0 [facility] RzvwebfGMKYRUNCPZ4190-66-19 10:22:000.3[facility]annHEMATOLOGY 2011-08-23 10:22:004.8[facility] GsuaemwMDTEEWCRHO1789-40-14 10:22:000.1[facility] DgyxntnGAIZDOPRXB6988-73-67 10:22:001.5[facility] KmuqotkVHKAVJPGMJ7402-93-81 10:22:000.5[facility] LkykrvvTLXBHKVZJZ3278-96-56 10:22:000.0[facility] FBJTMMNMRG8719-17-53 10:22:0011.0[facility] NfmlptdFNOPBDYIUZ0360-79-51 10:22:00 161[facility] OjtzdmoAEKFSZHMZU7646-72-25 10:22:00 Test Item Value Reference Range Interpretation Comments MCH (test code = MCH) 29.6 pg 27.0-31.0 N [facility] IzotjdeAPLPYICRSA3381-06-90 10:22:0035.4[facility]annHEMATOLOGY 2011-08-23 10:22:0014.1[facility] XleftfuSJZZWOLUFB1752-74-81 10:22:006.8[facility] SrsrvwlSDRXJDRKAO0133-23-48 10:22:0083.5[facility] LkpyergARREANWJUI1579-70-58 10:22:004.44[facility] UimxhogMVIJQJCREM2045-16-78 10:22:0013.1[facility] Vin FWHXLJMZPE1808-17-58 10:22:0037.1[facility] HermannBEDSIDE GLUCOSE TESTING 2011-08-23 02:20:88876Dtknnqcc QrgoqmyPSJKYFAIB8836-42-23 09:47:002.5[facility] ZvetklrMTVQYUITA8408-31-10 09:47:20361Bjfkxkzc XwqycouQCAOFJJWW4097-55-50 09:47:007[facility] CqehvijQGBKCEZPM7806-11-98 09:47:0019[facility]annCHEMISTRY 2011-08-22 09:47:000.3[facility] MzpnqqpDQFLXVEMM5623-82-99 09:47:09797Upbaoqxi IfhdahiIFUDYZUNO1953-63-27 09:47:44497Dtkliegb YvxvwsqOPNMOTCLH4461-19-36 09:47:003.6[facility] XlovxerXWOQRKVWV7853-73-37 09:47:007.9[facility] Vin VEAKNFOZN8740-36-36 09:47:0018.6[facility] KczptswSYPRCWYOJ3944-91-34 09:47:001.6 [facility] GgeicknSUHRLDJDKR4372-65-23 09:47:000.0[facility]annHEMATOLOGY 2011-08-22 09:47:000.4[facility] DrppmucULUKDTBVLN4536-74-29 09:47:000.5[facility] JchsrsfLNZSDQZHHE6954-28-29 09:47:005.9[facility] EsmxnziMYAPXTGMQU9683-34-22 09:47:001.2[facility] UotsbjaCABVJGGLUC9294-61-09 09:47:000.5[facility] Vin AQOTRKDLYB8428-90-91 09:47:000.0[facility] DmknfpcIZKISGVDSC5997-26-57 09:47:00 76.9[facility] CupiltgCPGHLNTEPS5649-63-50 09:47:0015.9[facility]annHEMATOLOGY 2011-08-22 09:47:006.3[facility] CzyhthsMTPIRBZCXO6096-88-68 09:47:0082.8[facility] DmpcqcvJYETETIWQI9017-32-02 09:47:0039.7[facility] PodhdldJSKGMSHAHN8794-46-62 09:47:00 Test Item Value Reference Range Interpretation Comments MCH (test code = MCH) 29.1 pg 27.0-31.0 N [facility] PjpxrduICEJZLIHFB6600-45-65 09:47:0014.0[facility]annHEMATOLOGY 2011-08-22 09:47:0035.2[facility] DibpfqiSUJRLLSYBL5148-50-05 09:47:0013.9[facility] TwthwgiCKOJOKURQL8135-09-20 09:47:03587Gnlxhmhy DtrzxngHOYYSNPRSA4149-74-24 09:47:0011.9[facility] MgxtykvOKNVNURCIE8593-09-82 09:47:007.7[facility] VYFHJQLBSU3766-23-75 09:47:004.80[facility] HusgdkjJUZCAFOZP1201-62-75 10:28:002.6 [facility] BzjokgmWCRRAMYKI0163-39-49 10:28:001.8[facility] HermannCHEMISTRY 2011-08-21 10:28:003.7[facility] WfkkvmqIHZPPOLSG5571-03-28 10:28:58032Lfezsemn HgneuxxBOBXQQVBQ8672-55-68 10:28:000.6[facility] RypqdwcTMEHIUAMJ2684-49-51 10:28:0016[facility] DbrgryeMVHUUXNCK3885-18-04 10:28:05562Rhfltboi Vin SKBQFASII5320-30-08 10:28:008.3[facility] PsafkcyGCOKWDIWG3830-62-53 10:28:0019.7 [facility] ZugmvcsKBZRHFIPJ7604-25-05 10:28:0099[facility]annCHEMISTRY 2011-08-21 10:28:0022[facility] WdyixovLLTWIVFFZN1344-89-09 10:28:57049Qlgycgqe ZeceaasENGTTZWYHW5658-28-47 10:28:0012.0[facility] GvczbyrZWDATWNYML4039-56-59 10:28:007.3[facility] OymyytaEXTOHBKGMJ2896-85-40 10:28:0014.6[facility] Vin QNIUGWBQOY7830-07-12 10:28:0035.0[facility] AucgpbfSRULVISPMK0351-52-10 10:28:00 4.54[facility] GwmhufnYDZHECLYFO8047-74-11 10:28:0037.6[facility]annHEMATOLOGY 2011-08-21 10:28:0082.9[facility] EsgwhayVMUPADRFAW7706-92-22 10:28:00 Test Item Value Reference Range Interpretation Comments MCH (test code = MCH) 29.0 pg 27.0-31.0 N [facility] CyvwlccPPAAHREWFP7928-04-14 10:28:0013.2[facility]annHEMATOLOGY 2011-08-21 10:28:00Slight *ABN*(08/21/2011 04:28:00)[facility]annHEMATOLOGY 2011-08-21 10:28:00Slight (08/21/2011 04:28:00)[facility]annHEMATOLOGY 2011-08-21 10:28:000.0[facility] AboxexeVHBKMOECWB9085-35-14 10:28:00Slight (08/21/2011 04:28:00)[facility] GnnsielBPUXYMBBAC7231-30-89 10:28:000.6[facility] EknqezjEHAFGJSZFR0315-67-81 10:28:000.0[facility] KtibwijKDAPDPYPZM8334-07-71 10:28:005.3[facility] QcastlmERNSBUAVHI2558-01-31 10:28:001.3[facility] Vin TIABXLPSTT5250-99-65 10:28:000.5[facility] FnxudmmFRJSHOEWPQ3425-88-55 10:28:008.5 [facility] SbqjufcDELLKSEYKI1360-24-46 10:28:000.3[facility]annHEMATOLOGY 2011-08-21 10:28:0017.3[facility] YxbjnrdTUXMGPAUUB8142-68-74 10:28:0073.4[facility] HqhltdvAWJWQWBEE1647-06-75 21:58:00Negative (08/19/2011 15:58:00)[facility] QhgkanjDYIQUYJKO9774-94-78 21:58:22804Bwsekkft YnagmiqXIUNVMFYJ0976-73-45 21:58:0054[facility] MxkarwxFEZLOPICQ5174-62-16 21:58:90992Dstwctrd [place] JZMGCOPOQ3127-45-63 21:58:000.1[facility] MtwjrahIFORIOEZL6141-18-95 21:58:000.9 [facility] IixbxzgMRHINXAZO5069-50-35 21:58:004.4[facility] HermannCHEMISTRY 2011-08-19 21:58:008.8[facility] AetqpunIBWKCVMQE5978-95-30 21:58:000.8[facility] XujxdnhONUNSIXIX8273-76-42 21:58:0036[facility] KiggusgCNBOUOCCK0352-99-89 21:58:004.4[facility] KicacszLFYNPQLRP3800-21-78 21:58:001.0[facility] Vin UNDGSTPGBC8748-36-15 21:58:00Occasional /HPF (08/19/2011 15:58:00)[facility] ZdfhcutOUATFGHSKL1529-56-23 21:58:003-5 /HPF *ABN*(08/19/2011 15:58:00)[facility] OpuzrgsBVJMBLPCIZ2811-01-90 21:58:003[facility] BzpyamxSVCBKQQUZG9779-87-58 21:58:00Few /LPF (08/19/2011 15:58:00)[facility] YqfuesmHSUPVCWXQH6494-21-55 21:58:00Occasional /HPF *ABN*(08/19/2011 15:58:00)[facility] HermannURINALYSIS 2011-08-19 21:58:000.2[facility] SurczviYLECQLTAAC8986-23-18 21:58:00Rare /LPF (08/19/2011 15:58:00)[facility] JxjoavkCPDTJUNOQA1939-63-61 21:58:00Performed (08/19/2011 15:58:00)[facility] JxjbvieWOQTNIPJTJ0867-37-34 21:58:00Negative (08/19/2011 15:58:00)[facility] HobieknOBSTNAMQJS0000-65-55 21:58:00Negative (08/19/2011 15:58:00)[facility] CbovcopQSLGQPXOQG4064-02-27 21:58:00 Test Item Value Reference Range Interpretation Comments UA pH (test code = UA pH) 5.5 1 5.0-8.0 N [facility] LvunhcyTYLOMUHANI7781-37-03 21:58:00Trace *ABN*(08/19/2011 15:58:00) [facility] ZcvteasNIBLZSXFLF2691-22-67 21:58:00Negative (08/19/2011 15:58:00) [facility] KaoosvoBXFHPPTYDI4469-90-17 21:58:0080 mg/dL *ABN*(08/19/2011 15:58:00) [facility] YptmcycBRIGEERJCG8578-68-55 21:58:00>=1000 mg/dL *ABN*(08/19/2011 15:58:00)[facility] DiizxxaWXKPFTJYBM5470-26-78 21:58:00Negative (08/19/2011 15:58:00)[facility] YuncjllSRIJRFBCTP3373-77-25 21:58:00Slight Cloudy (08/19/2011 15:58:00)[facility] NyrhnevSZVDCOEZYX9678-03-15 21:58:00 Test Item Value Reference Range Interpretation Comments UA Spec Grav (test code = UA Spec 1.025 1 Grav) [facility] MmqginwZZSTSOWWQY4378-60-47 21:58:00Yellow (08/19/2011 15:58:00) [facility] CzvwwdvJTTMZEXIK5989-93-70 21:13:0023[facility] HermannCHEMISTRY 2011-08-19 21:13:001.0[facility] GcugshxLLKMSIOFK4850-71-51 21:13:79669Uumblcdj KwexegqIXVPXLVTH5655-41-09 21:13:0056[facility] VrfeqipDLZQSARZM5435-63-17 21:13:009.0[facility] RycaplsFDHHWLPKC8796-67-14 21:13:004.8[facility] Vin HZKMDUAMS7995-78-55 21:13:004.2[facility] SvokeysIXTNXEMGM4243-75-97 21:13:001.1 [facility] OgdaqkoZJCSNQORH8959-75-73 21:13:0030[facility]annHEMATOLOGY 2011-08-19 21:13:00Normal (08/19/2011 15:13:00)[facility]annHEMATOLOGY 2011-08-19 21:13:00Slight *ABN*(08/19/2011 15:13:00)[facility]annHEMATOLOGY 2011-08-19 21:13:000.0[facility] UdpipkoQBCCSDNLTY2081-41-14 21:13:000.0[facility] StqfgkqRHHHJLDDK5818-18-70 21:10:0074.0[facility] CzrfmtzBCOTRCAFL9025-98-66 21:10:0037.0[facility] UidmbitQGPMBSAOI8742-58-24 21:10:0042[facility] Vin JLIGVXFMO9158-75-92 21:10:0017.3[facility] EenojbgAAGBNDIVO4712-12-80 21:10:007.34 [facility] ViwwlcmEXPBUCJLO5713-02-36 21:10:0032[facility] HermannCHEMISTRY 2011-08-19 21:10:00-7[facility] DlevzkoBXURDAGRMN0033-53-32 20:34:00Negative *NA*(08/19/2011 14:34:00)[facility]
--- NOTE | 2020-06-13 16:21 | RAD REPORT ---
EXAM DESCRIPTION: RAD - Chest Single View - 06/13/2020 3:23 pm CLINICAL HISTORY: CHEST PAIN Chest pain. COMPARISON: Chest Single View dated 06/10/2020; Chest Pa And Lat (2 Views) dated 04/25/2019; Chest Pa And Lat (2 Views) dated 10/20/2017; Chest Single View dated 10/04/2017 FINDINGS: Portable technique limits examination quality. The lungs are grossly clear. The heart is normal in size. No displaced fractures. IMPRESSION: No acute intrathoracic process suspected.
--- NOTE | 2020-06-13 16:37 | EDPHYS ---
Physician Documentation [facility] Name: Cathi Zaldivar Age: 39 yrs Sex: Female : 1980 Arrival Date: 06/13/2020 Time: 14:00 Bed 14 Private MD: DWIGHT Physician Luis Sandra HPI: 06/13 15:09 This 39 yrs old Female presents to ER via Ambulatory with complaints of Chest pm1 Pain. 15:10 The patient or guardian reports chest pain that is located primarily in the anterior pm1 aspect of left upper chest. The pain radiates to the left shoulder. Associated signs and symptoms: Pertinent positives: cough, shortness of breath, Pertinent negatives: abdominal pain, diaphoresis, dizziness, headache, nausea, vomiting. The chest pain is described as a pressure. Duration: The patient or guardian reports a single episode, that is still ongoing. Modifying factors: The symptoms are alleviated by nothing. the symptoms are aggravated by palpation of area. Severity of pain: in the emergency department the pain is unchanged. EMS care prior to arrival includes: aspirin, nitroglycerin, x 3, with no relief of the chest pain. Patient missed two dialysis treatments and went today. 0.7 L pulled off at the time dialysis was stopped. Patient reports onset of chest pain during dialysis treatment. 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 - Social history:: Smoking status: Patient denies any tobacco usage or history of. ROS: 15:10 Constitutional: Negative for fever, chills, and weight loss. pm1 15:10 Cardiovascular: Positive for chest pain, Negative for edema, palpitations. 15:10 Abdomen/GI: Negative for abdominal pain, nausea, vomiting, diarrhea, and constipation, pm1 Back: Negative for injury and pain, MS/Extremity: Negative for injury and deformity, Skin: Negative for injury, rash, and discoloration, Neuro: Negative for headache, weakness, numbness, tingling, and seizure. 15:10 Respiratory: Positive for cough, shortness of breath, Negative for wheezing. Exam: 15:10 Constitutional: This is a well developed, well nourished patient who is awake, alert, pm1 and in no acute distress. Head/Face: Normocephalic, atraumatic. 15:10 Back: No spinal tenderness. No costovertebral tenderness. Full range of motion. Skin: Warm, dry with normal turgor. Normal color with no rashes, no lesions, and no evidence of cellulitis. MS/ Extremity: Pulses equal, no cyanosis. Neurovascular intact. Full, normal range of motion. 15:10 Chest/axilla: Inspection: normal, Palpation: crepitus, is not appreciated, tenderness, that is moderate, of the anterior aspect of left upper chest, that totally reproduces the patient's complaints. 15:10 Cardiovascular: Exam negative for acute changes, Rate: normal, Rhythm: regular, Pulses: no pulse deficits are appreciated, Edema: is not appreciated. 15:10 Respiratory: Exam negative for acute changes, respiratory distress, shortness of breath. 15:10 Neuro: Exam negative for acute changes, Orientation: is normal, Mentation: is normal, Motor: moves all fours. Vital Signs: 14:01 Temp 97.9; Pain 10/10; ll1 14:02 BP 172 / 98; Pulse 95; Resp 14 S; Temp 97.6(TE); Pulse Ox 100% ; Weight 76 kg; Height 5 ca1 ft. 1 in. (154.94 cm); Pain 10/10; 15:05 BP 191 / 104; Pulse 90; Resp 16 S; Pulse Ox 100% on R/A; ca1 15:57 BP 189 / 95; Pulse 92; Resp 15 S; Pulse Ox 100% on R/A; ca1 14:02 Body Mass Index 31.66 (76.00 kg, 154.94 cm) ca1 MDM: 14:02 Patient medically screened. pm1 14:10 Data reviewed: vital signs. pm1 16:25 Refusal of service: The patient/guardian displays adequate decision making capability pm1 and despite a detailed discussion of alternatives, benefits, risks, and consequences refuses: all lab tests, Page and I arrived into the patient room with ultrasound machine to look for a IV site. Patient did not want us to look for any further IV sites. She was on her cell phone and said she feels better and is ready to go home. She said she is just calling for a ride home now. 06/13 14:07 Order name: XRAY Chest (1 view); Complete Time: 16:36 pm1 06/13 14:07 Order name: EKG; Complete Time: 14:08 pm1 06/13 14:07 Order name: Cardiac monitoring; Complete Time: 14:34 pm1 06/13 14:07 Order name: EKG - Nurse/Tech; Complete Time: 15:25 pm1 06/13 14:07 Order name: O2 Per Protocol; Complete Time: 14:35 pm1 06/13 14:07 Order name: O2 Sat Monitoring; Complete Time: 14:35 pm1 Administered Medications: No medications were administered Disposition: 06/13/20 16:37 Patient has left against medical advice. Impression: Chest pain, unspecified. - Patients states they are going to Home. - Condition is Undetermined. - Discharge Instructions: Nonspecific Chest Pain. Follow up: Emergency Department; When: As needed; Reason: Worsening of condition. Follow up: Private Physician; When: Upon discharge from the Emergency Department; Reason: Recheck today's complaints, Continuance of care, Re-evaluation by your physician. - Problem is new. - Symptoms have improved. Addendum: 06/15/2020 11:37 Co-signature as Attending Physician, Luis Sandra MD I agree with the assessment and c holman plan of care. Signatures: Dispatcher [employer] EDMS Luis Sandra MD MD cha Marinas, Patrick, CHAPARRITA ASSOCIATE PROFESSOR OF VIOLIN pm1 Georgette Longoria RN RN ll1 Corrections: (The following items were deleted from the chart) 06/13 16:59 16:37 06/13/2020 16:37 Patients has left against medical advice. Impression: Chest ll1 pain, unspecified. Patient states they are going to Home. Condition is Undetermined. Follow up: Emergency Department; When: As needed; Reason: Worsening of condition. Follow up: Private Physician; When: Upon discharge from the Emergency Department; Reason: Recheck today's complaints, Continuance of care, Re-evaluation by your physician. Problem is new. Symptoms have improved. pm1
--- NOTE | 2020-06-13 16:37 | ER ---
Nurse's Notes [facility] Name: Cathi Zaldivar Age: 39 yrs Sex: Female : 1980 Arrival Date: 06/13/2020 Time: 14:00 Bed 14 Private MD: Diagnosis: Chest pain, unspecified Presentation: 06/13 14:01 Chief complaint: Patient states: Started to have CP and SOB today while in dialysis. ll1 Missed Wednesday and Wednesday, so she was getting dialysis today instead. Normal days M,W,F. Took off .7 liters. Given 324 mg aspirin en route and 3 nitro's. BP 170/110. Coronavirus screen: Client denies travel out of the [place] in the last 14 days. congestion, cough unrelated to allergies, fatigue, shortness of breath, Client presents with at least one sign or symptom that may indicate coronavirus-19. Standard/surgical mask placed on the client. The client indicates previous COVID test results are pending. Ebola Screen: Patient denies travel to an Ebola-affected area in the 21 days before illness onset. Initial Sepsis Screen: Does the patient meet any 2 criteria? HR > 90 bpm. No. Patient's initial sepsis screen is negative. Does the patient have a suspected source of infection? No. Patient's initial sepsis screen is negative. Risk Assessment: Do you want to hurt yourself or someone else? Patient reports no desire to harm self or others. Onset of symptoms was June 13, 2020. 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 - Social history:: Smoking status: Patient denies any tobacco usage or history of. Screenin:03 Abuse screen: Denies threats or abuse. Denies injuries from another. Nutritional ca1 screening: No deficits noted. Tuberculosis screening: No symptoms or risk factors identified. Fall Risk IV access (20 points). Assessment: 14:03 General: Appears in no apparent distress. comfortable, Behavior is calm, cooperative, ca1 appropriate for age. Pain: Complains of pain in mid-sternal area Pain radiates to left arm Pain currently is 10 out of 10 on a pain scale. Pain began 30 min ago. Neuro: Level of Consciousness is awake, alert, obeys commands, Oriented to person, place, time, situation. Cardiovascular: Heart tones S1 S2 present Capillary refill < 3 seconds Patient's skin is warm and dry. Rhythm is sinus rhythm Dialysis shunt: in the right arm, with palpable thrill, with auscultated bruit. Respiratory: Airway is patent Respiratory effort is even, unlabored, Respiratory pattern is regular, symmetrical, Breath sounds are clear bilaterally. GI: Abdomen is flat, non-distended, Bowel sounds present X 4 quads. Abd is soft and non tender X 4 quads. : No signs and/or symptoms were reported regarding the genitourinary system. EENT: No signs and/or symptoms were reported regarding the EENT system. Derm: Skin is intact, is healthy with good turgor, Skin is pink, warm \T\ dry. Musculoskeletal: Circulation, motion, and sensation intact. Capillary refill < 3 seconds. 15:05 Reassessment: Patient appears in no apparent distress at this time. Patient and/or ca1 family updated on plan of care and expected duration. Pain level reassessed. Patient is alert, oriented x 3, equal unlabored respirations, skin warm/dry/pink. 15:57 Reassessment: Patient appears in no apparent distress at this time. Patient and/or ca1 family updated on plan of care and expected duration. Pain level reassessed. Patient is alert, oriented x 3, equal unlabored respirations, skin warm/dry/pink. 16:15 Reassessment: technical specialist cytogenetics attempted to draw blood, unsuccessful. Notified provider and CN. ca1 Vital Signs: 14:01 Temp 97.9; Pain 10/10; ll1 14:02 BP 172 / 98; Pulse 95; Resp 14 S; Temp 97.6(TE); Pulse Ox 100% ; Weight 76 kg; Height 5 ca1 ft. 1 in. (154.94 cm); Pain 10/10; 15:05 BP 191 / 104; Pulse 90; Resp 16 S; Pulse Ox 100% on R/A; ca1 15:57 BP 189 / 95; Pulse 92; Resp 15 S; Pulse Ox 100% on R/A; ca1 14:02 Body Mass Index 31.66 (76.00 kg, 154.94 cm) ca1 ED Course: 14:00 Patient arrived in ED. ll1 14:00 Arm band placed on Patient placed in an exam room, on a stretcher. ll1 14:02 Deneen Potter, TABATHA is Primary Nurse. ca1 14:02 Anand Gallo NP is PHCP. pm1 14:02 Luis Sandra MD is Attending Physician. pm1 14:03 Patient has correct armband on for positive identification. Placed in gown. Bed in low ca1 position. Call light in reach. Side rails up X2. media monitor on. Pulse ox on. NIBP on. Warm blanket given. 14:03 Patient maintains SpO2 saturation greater than 95% on room air. ca1 14:04 Triage completed. ll1 14:20 Missed attempt(s): 22 gauge in left antecubital area. Bleeding controlled, band aid ca1 applied, catheter tip intact. 14:30 Missed attempt(s): 22 gauge in left upper arm. Bleeding controlled, band aid applied, ca1 catheter tip intact. 14:50 Missed attempt(s): 20 gauge in left EJ by CHAPARRITA Michel. Bleeding controlled, band aid ca1 applied, catheter tip intact. 15:00 Missed attempt(s): 18 gauge in right EJ by CHAPARRITA Michel. Bleeding controlled, band aid ca1 applied, catheter tip intact. 15:23 XRAY Chest (1 view) In Process Unspecified. EDMS 16:55 No provider procedures requiring assistance completed. ca1 16:55 Patient did not have IV access during this emergency room visit. ca1 Administered Medications: No medications were administered Outcome: 16:58 AMA Left before signing form. ca1 16:59 Patient left the ED. ll1 Signatures: Dispatcher [employer] EDMS Lyudmila Gallorick, PROFESSOR OF GENETICS PROFESSOR OF GENETICS pm1 Deneen Potter, RN RN ca1 Georgette Longoria, RN RN ll1
[2020-06-13 17:04] VITALS: TEMP 97.6; O2SAT 100
[2020-06-13 17:06] VITALS: BP 189/95
== END 2020-06-13 16:59 | disposition left against medical advice (07) ==
LOC: ER 13:49
DX: R07.9 Chest pain, unspecified (principal); E11.22 Type 2 diabetes mellitus with diabetic chronic kidney disease; N18.6 End stage renal disease; Z99.2 Dependence on renal dialysis; Z88.0 Allergy status to penicillin; Z88.5 Allergy status to narcotic agent; Z88.8 Allergy status to other drugs, medicaments and biological substances
CPT/HCPCS: 71045; 93005; 99284

== ENCOUNTER 2020-07-03 11:57 | Emergency (ER) | payer OTHER ==
--- OUTSIDE RECORDS SUMMARY | 2020-07-03 12:00 | XMS REPORT | Clinical Summary ---
:1980 Author Organization [facility] Address [address] [place] [address] Care Team Providers Name Role Phone Sharpvolodymyr [...] Not on file Results Not on fileafter 07/03/2019 Advance Directives For more information, please contact: [phone] Code Status Date Activated Date Inactivated Comments Full Code 01/03/2017 1:56 AM 01/07/2017 5:21 PM This code status was determined by: Patient
--- OUTSIDE RECORDS SUMMARY | 2020-07-03 12:11 | XMS REPORT | Continuity of Care Document ---
:1980 Author Organization [employer] Care Team Providers Name Role Phone [employer] [employer] [facility] Unavailable Un available Problems Problem Status Onset Classification Date Comments Sourc e Date Reported NEW EVALUATION [place]19 [place] [facility] CONGESTION AMD Active 07/23/19 [facility] xa DIARRHEA 17 [facility] ACUTE RESP Active 07/23/19 [facility] FAILURE [address] [place] [address] SOB/SWELLING Active 06/10/[address] CHF/RENAL DISEASE Active 06/10/[address] Center Discharge 06/26/19 06/28/2014 [facility] Diagnosis: 15 [facility] Gastroparesis Center ABDOMINAL PAIN, Active 06/26/19 [facility] [place] SEIZURES 14 [facility] ABD PAIN Active 04/14/20 [facility] GASTROPERISIS Active 08/02/19 Baljinder as 13 [facility] Center ABDOMINAL PAIN Active 03/14/[address] NAUSEA, VOMITING Active 03/14/[address] Nausea and Resolved 11/29/19 Problem 08/02/2016 [facility] vomiting [address] [place] [address] (disorder) [facility] VOMITTING Active 11/28/[address] N/V INABILITY TO Active 11/28/19 [facility] TOLERATE PO [address] [place] [address] VOMITTING, HIGH Active 09/18/19 [facility] [place] BLOOD SUGAR [address] [place] [address] MRSA Active 09/01/19 Problem 03/16/2012 - Elbow [place] und [place] 12 2Problem added by Jodie scern Expert. [facility] Methicillin Active 09/01/19 Problem 08/02/2016 09/01/11 - [place]bow [place] resistant 12 Problem added by Bertin cern Expert. Medical Staphylococcus Cente r, aureus (organism) So [facility] ELBOW Active 08/31/19 [facility] ABSCESS/HYPERGLYC 12 [facility] VOMITING, BLOOD Active 08/31/19 [facility] [place] SUGAR READINGS 12 Medic [facility] Center Hypokalemia Active 08/23/19 Problem 03/16/2012 [place] [facility] Hypokalemia Resolved 08/23/19 Problem 08/02/[place] [facility] Disorder of Resolved 08/23/19 Problem 08/02/2016 Amisha lombardo magnesium Medical metabolism Center (disorder) Hyperglycemia Inactive 08/20/19 Problem 03/16/2012 [place] [facility] Hyperglycemia Resolved 08/20/19 Problem 08/02/2016 [place] ([place]order[place] Medical [place],[facility] DKA (diabetic Resolved 08/19/19 Problem 04/22/2013 [place] ketoacidoses[place] Medica [facility] Ketoacidosis in Resolved 08/19/19 Problem 08/02/2016 [facility] diabetes mellitus [place] [facility] dical (disorder) Center VOMITING Active 08/19/[address] DKA Active 08/19/[address] Hypoglycemia Inactive Problem 04/22/2013 (disorder) [facility] Hypomagnesemia Active Problem 04/22/2013 [facility] Hypertension Active Problem 03/16/2012 [facility] as Medical Center,[facility] Hypoglycemia Inactive Problem 03/16/2012 [facility] as Medical Center,[facility] Nausea and Active Problem 03/16/2012 [facility] vomiting Medical [place],[facility] Diabetes mellitus Resolved Problem 08/02/2016 [facility] (disorder) [facility] Gastroparesis Resolved Problem 08/02/2016 [facility] xa (disorder) [facility] Hypertensive Resolved Problem 08/02/2016 Baljinder as disorder, Medical systemic arterial Ce nter, (disorder) [facility] Psychiatric Resolved Problem 08/02/2016 [facility] disability [place] (finding) Seizure (finding) Resolved Problem 08/02/2016 [facility] Final: Acute 08/02/2016 Baljinder as respiratory Medical failure, Center unspecified whether with hypoxia or hypercapnia DMI KETOACD Active [facility] UNCONTROLD [facility] OTHER GENERAL Active Baljinder as [facility] HEART FAILURE, [place] U[facility]IFIED [facility] ACUTE RESPIRATORY Active [facility] FAILURE, UNSP [facility] HYPOXI Center Medications Medication Details Route Status Patient Ordering Order Source Instructions Provider Date Furosemide 40 MG 40 mg = 1 [place]30/ [place] Oral Tablet tab, PO, 2017 Medical Daily, # 30 Center tab, 0 Refill(s), Pharmacy: [facility] [id number] Bumex 0.5 mg, No Longer [place] Route: PO, Active 2017 Medical Drug form: Center TAB, Daily, Dosing Weight 92.273, kg, Start date: 07/30/16 9:00:00 POWER TOOL REPAIRER, Duration: 30 day, Stop date: 08/28/16 9:00:00 POWER TOOL REPAIRER Lasix Notes: (Same No Longer [place] as: Lasix) Active 2017 Medical May cause [...] Total Volume: 1,000, Start date: 07/26/16 12:26:00 POWER TOOL REPAIRER, Duration: 30 day, Stop date: 08/25/16 12:25:00 POWER TOOL REPAIRER Sodium Chloride 500 mL, 500 Inactive Micki 0.154 MEQ/ML ml/hr, Infuse 2017 Medic al Injectable Over: 1 hr, Center Solution Route: IV, 500, Drug form: INJ, ONCE, Priority: STAT, Dosing Weight 92.273 kg, Start date: 07/26/16 7:30:00 POWER TOOL REPAIRER, Duration: 1 doses or times, Stop date: 07/26/16 7:30:00 POWER TOOL REPAIRER Insulin regular 60 units) Inactive Micki WASTE: [...] from _Date Insulin, Aspart, Notes: Roll Inactive [place] Human in palms of 2016 Medical hands gently; Center Do not shake vigorously. (Same as: NovoLOG) "single patient use only" WASTE: F/P - Black; E - Municipal Trash Bin Stable for 28 days at room temperature. Expires in days from _Date atorvastatin Notes: (Same No Longer [place] as: Lipitor) Active 2016 [facility] divalproex sodium Notes: (Same No Longer [place] as: Depakote Active 2016 Medical ER) Once Center daily dosing; indicated for migraines. Divalproex sodium extended-rele ase tab. Do not chew or crush. "Do Not Crush" Lasix Notes: (Same No Longer [facility] as: Lasix) Active 2017 [facility] Center MEDICATION WASTE Product Size: 40 mg Product Wasted: ___ mg Tylenol Notes: Max No Longer [place] acetaminophen Active 2016 Medical = 4000mg/day Center (4 gm/day). (Same as: Tylenol) Bupropion 150 mg, 1 No Longer [place] tab, Route: Active 2017 Medical PO, Drug Center form: ERTAB, Daily, Dosing Weight 92.273, kg, Start date: 07/24/16 9:00:00 POWER TOOL REPAIRER, Duration: 30 day, Stop date: 08/22/16 9:00:00 POWER TOOL REPAIRER 24 HR Divalproex Notes: (Same No Longer [place] Sodium 500 MG as: Depakote Active 2017 Medic al Extended Release ER) Center Tablet [Depakote] gabapentin 300 MG Notes: (Same No Longer [facility] Oral Capsule as: Active 2017 Medical Neurontin) Center Aspirin 81 MG Notes: Take No Longer [place] Chewable Tablet with food. Active 2017 Medic al Center Lasix Notes: (Same Inactive [facility] as: Lasix) 2017 Medical Center MEDICATION WASTE Product Size: 40 mg Product Wasted: ___ mg Zoloft Notes: (Same No Longer [facility] as: Zoloft) Active 2017 Medical Center Protonix Notes: Tablet [place] Longer [place] should not be Active 2017 Medical chewed or Center crushed. (Same as: Protonix) metoprolol 100 mg, 2 No Longer [facility] extended release tab, Route: Active 2017 Med ical PO, Drug Center form: ERTAB, Daily, Start date: 07/24/16 9:00:00 POWER TOOL REPAIRER, Duration: 30 day, Stop date: 08/22/16 9:00:00 POWER TOOL REPAIRER Insulin Glargine Notes: Same No Longer [place] 100 UNT/ML as: Lantus) Active 2017 Medical Injectable Do not hold Center Solution [Lantus] insulin without contacting prescriber WASTE: F/P - Black; E - Municipal Trash Bin Hydralazine Notes: (Same [place] Long[place] Hydrochloride 100 as: Active 2017 Medica l MG Oral Tablet Apresoline) Cente r May interfere w/enteral feedings Take With Food Ondansetron Notes: (Same Inactive Baljinder as as: Zofran) 2017 Medical Center MEDICATION WASTE Product Size: 4 mg Product Wasted: ___ mg Morphine Notes: (Same Inactive [facility] as:MORPhine 2017 Medical Sulfate) Center Insulin, Aspart, Notes: Roll No Longer 07/24/ M H [place] Human in palms of Active 2017 Medical hands gently; Center Do not shake vigorously. (Same as: NovoLOG) "single patient use only" WASTE: F/P - Black; E - Municipal Trash Bin Stable for 28 days at room temperature. Expires in days from _Date Dilaudid Notes: Same Inactive [place] as Dilaudid 2017 Medical Center Insulin, Aspart, Notes: Roll No Longer 07/24/ M H [place] Human in palms of Active 2017 Medical hands gently; Center Do not shake vigorously. (Same as: NovoLOG) "single patient use only" WASTE: F/P - Black; E - Municipal Trash Bin Stable for 28 days at room temperature. Expires in days from _Date Glucagon 1 mg, Route: No Longer [place] IM, Drug Active 2016 Medical form: [place] PDR/INJ, PRN, Dosing Weight 92.273, kg, PRN Blood Glucose Results, Start date: 07/24/16 2:40:00 POWER TOOL REPAIRER, Duration: 30 day, Stop date: 08/23/16 2:39:00 POWER TOOL REPAIRER Dextrose 50% 25 gm, 50 mL, No Longer [place] Syringe Route: IVP, Active 2016 Medical Drug Form: [place] INJ, Dosing Weight 92.273, kg, PRN, PRN Blood Glucose Results, Start date: 07/24/16 2:40:00 POWER TOOL REPAIRER, Duration: 30 day, Stop date: 08/23/16 2:39:00 POWER TOOL REPAIRER Docusate Notes: (Same No Longer [place] as: Colace) Active 2017 Medical (Do Not Center Crush) Ondansetron Notes: (Same [place] Long[place] as: Zofran) Active 2017 Medical Center MEDICATION WASTE Product Size: 4 mg Product Wasted: ___ mg Lasix Notes: (Same Inactive [facility] as: Lasix) 2017 Medical Center MEDICATION WASTE Product Size: 40 mg Product Wasted: ___ mg Aspirin Notes: Take No Longer [facility] with food. Active 2017 Medical Center Prednisone Notes: Take Inactive [facility] with food. 2017 Medical [place] Albuterol 0.833 Notes: (Same No Longer H [place] MG/ML / as: Duoneb) Active 2017 Medical Ipratropium [facility] [place] 0.167 MG/ML Inhalant Solution [DuoNeb] Furosemide 40 MG 80 mg = 2 [place] Oral Tablet tab, PO, BID, 2015 Medica l # 120 tab, 0 Center Refill(s) atorvastatin 40 40 mg = 1 Active Baljinder as mg oral tablet tab, PO, 2016 Medical Bedtime, # 30 Center tab, 0 Refill(s) Insulin Glargine 40 unit, Active Baljinder as 100 UNT/ML SUB-Q, Daily, 2016 Medical Injectable # 10 mL, 0 Center Solution [Lantus] Refill(s) metoprolol 100 mg 100 mg = 1 Active [facility] oral tablet, tab, PO, 2016 Medical extended release Daily, # [address] tab, 0 Refill(s) Hydralazine 100 mg = 1 Active [facility] Hydrochloride 100 tab, PO, BID, 2016 Medical MG Oral Tablet # 60 tab, 0 Cente r Refill(s) 200 ACTUAT 2 puff, Active [facility] Albuterol 0.09 INHALATION, 2016 Medic al MG/ACTUAT Metered PRN, PRN as Ce nter Dose Inhaler needed for wheezing, use as needed for shortness of breath or wheezing, # 8 gm, 0 Refill(s) Aspirin 81 MG 81 mg = 1 Active [facility] Chewable Tablet tab, PO, 2015 Medical Daily, # 30 Center tab, 0 Refill(s) Hydroxyzine 50 mg = 1 Active [facility] Hydrochloride 50 cap, PO, TID, 2015 M edical MG Oral Capsule X 30 day, # Cent er 90 cap, 0 Refill(s) losartan 25 mg 25 mg = 1 [place] tablet tab, PO, 2015 Medical Daily, # 30 Center tab, 0 Refill(s) Lasix Notes: (Same Inactive 06/15[facility] as: Lasix) 2016 Medical May cause GI Center upset. Give with food or milk. Magnesium Oxide Notes: (Same Inactive [facility] as: [facility]-Ox 2016 Medical 400) [place] Magnesium oxide [id number] elemental magnesium Dose=____mg magnesium oxide (___mg elemental magnesium) Magnesium Oxide Notes: (Same Inactive 06/13[facility] as: [facility]-Ox 2016 Medical 400) [place] Magnesium oxide [id number] elemental magnesium Dose=____mg magnesium oxide (___mg elemental magnesium) 24 HR Nifedipine Notes: (Same Inactive H [place] 30 MG Extended as: Adalat 2015 Medica l Release Tablet CC, Procardia [address] [Procardia] XL) Give on empty stomach. Take 1 hour before or 2 hours after meal; "Avoid grapefruit and grapefruit juice". Do not crush hydrALAZINE 50 mg Notes: (Same No Longer [place] oral tablet as: Active 2015 Medical Apresoline) Center May interfere w/enteral feedings Take With Food Wellbutrin XL Notes: (Same No Longer [place] as: Active 2015 Medical Wellbutrin Center XL) "Do Not Crush" Norvasc Notes: (Same Inactive [place] as: Norvasc) 2016 [facility] Center Insulin Glargine Notes: Same No Longer H [place] 100 UNT/ML as: Lantus) Active 2015 Medical Injectable Do not hold Center Solution [Lantus] insulin without contacting prescriber WASTE: F/P - Black; E - Municipal Trash Bin 1 ML paliperidone IM, qMonth, 0 Active [place] palmitate 156 Refill(s) 2015 Medical MG/ML Prefilled Center Syringe [Invega] amLODIPine 10 mg 10 mg = 1 No Longer [place] oral tablet tab, PO, Active 2015 Medical Daily, 0 Center Refill(s) pravastatin 40 mg 40 mg = 1 No Longer [place] oral tablet tab, PO, Active 2015 Medical Daily, 0 Center Refill(s) Sertraline 100 MG 200 mg = 2 Active [place] Oral Tablet tab, PO, 2016 Medical [Zoloft] Daily, 0 Center Refill(s) pantoprazole 40 40 mg = 1 Active Baljinder as MG Enteric Coated tab, PO, 2016 Medic al Tablet [Protonix] Daily, 0 Cente r Refill(s) gabapentin 300 MG 1 CAP PO BID Active H [place] Oral Capsule AND 1 CAP AT 2016 [...] [place] as: Lipitor) Active 2016 [facility] Lactulose Notes: (Same [place] Long[place] as:Chronulac) Active 2016 [facility] Furosemide Notes: (Same No Longer Baljinder as as: Lasix) Active 2016 [facility] Center MEDICATION WASTE Product Size: 40 mg Product Wasted: ___ mg Aspirin 81 MG Notes: Take No Longer [place] Chewable Tablet with food. Active 2015 [facility] al [place] gabapentin 300 MG Notes: (Same No Longer [place] Oral Capsule as: Active 2016 [facility] Neurontin) [place] Divalproex Sodium Notes: (Same No Longer [place] 500 MG Enteric as: Depakote Active 2015 Medi tawnya Coated Tablet ER) Once Center [Depakote] daily dosing; indicated for migraines. Divalproex sodium extended-rele ase tab. Do not chew or crush. "Do Not Crush" Aspirin 81 mg, Route: No Longer [place] PO, Drug Active 2015 Medical form: ECTAB, [place] Daily, Dosing Weight 86.364, kg, Start date: 06/11/16 9:00:00 POWER TOOL REPAIRER, Duration: 30 day, Stop date: 07/10/16 9:00:00 POWER TOOL REPAIRER Insulin Glargine Notes: Same No Longer H [...] as: Duoneb) Active 2016 Medical Ipratropium Center [place] 0.167 MG/ML Inhalant Solution [DuoNeb] gabapentin 300 MG 300 mg, Inactive [place] Oral Capsule Route: PO, 2016 Medical Drug form: Center CAP, Q12H, Dosing Weight 86.364, kg, (CrCl 30 - 59 ml/min), Start date: 06/10/16 21:00:00 POWER TOOL REPAIRER, Duration: 30 day, Stop date: 07/10/16 9:00:00 POWER TOOL REPAIRER divalproex sodium Notes: (Same No Longer [place] [...] Blood Glucose Results, Start date: 06/10/16 18:50:00 POWER TOOL REPAIRER, Duration: 30 day, Stop date: 07/10/16 18:49:00 POWER TOOL REPAIRER Glucagon 1 mg, Route: No Longer [place] IM, Drug Active 2015 Medical form: Center PDR/INJ, PRN, Dosing Weight 86.364, kg, PRN Blood Glucose Results, Start date: 06/10/16 18:50:00 POWER TOOL REPAIRER, Duration: 30 day, Stop date: 07/10/16 18:49:00 POWER TOOL REPAIRER Hydralazine Notes: (Same [place] Longer [place] [...] Center 86.364, kg, Start date: 06/10/16 18:06:00 POWER TOOL REPAIRER, Stop date: 06/10/16 18:06:00 POWER TOOL REPAIRER hydrOXYzine Notes: (Same [place] Longer [place] pamoate as: Vistaril) Active 2015 Medical Center Furosemide 60 mg, Route: Inactive Baljinder as IVP, Drug 2015 Medical form: INJ, Center ONCE, Dosing Weight 86.364, kg, Start date: 06/10/16 16:32:00 POWER TOOL REPAIRER, Stop date: 06/10/16 16:32:00 POWER TOOL REPAIRER Lasix Notes: (Same Inactive [place] as: Lasix) 2015 Medical Center MEDICATION WASTE Product Size: 40 mg Product Wasted: _0__ mg Albuterol 0.833 Notes: (Same No Longer 06/10/ H [place] MG/ML / as: Duoneb) Active 2015 [facility] Ipratropium [place] 0.167 MG/ML Inhalant Solution [DuoNeb] Promethazine 25 mg = 1 Active [facility] Hydrochloride 25 supp, [place], 2015 Medic al MG Rectal Q6H, Nausea & Center Suppository Vomiting, # 9 [Phenergan] supp, 0 Refill(s) Ondansetron 4 MG Special Active s Disintegrating Instructions: 2014 Med ical Tablet [Zofran] Dissolve tab Pedriot ter under tongue Metoclopramide 10 10 mg = 1 Active [place] MG Oral Tablet tab, PO, QID, 2014 Med ical [Reglan] # 40 tab, 0 Center Refill(s) Erythromycin 500 = 1 tab, PO, Active [facility] MG Enteric Coated Q6H, # 40 2014 Medi [place] Tablet tab, 0 Center Refill(s) Hydromorphone Notes: Same Inactive [place] as: Dilaudid 2014 [facility] hydrOXYzine 0 Refill(s) Active [facility] pamoate [address] [place] [address] Dicyclomine 0 Refill(s) Active [address] Ondansetron 0 Refill(s) Active [address] Benztropine 0 Refill(s) Active [address] Clonidine 0 Refill(s) Active [address] Zoloft 0 Refill(s) Active [address] Metoclopramide 0 Refill(s) [place] [address] [place] [address] Erythromycin 0 Refill(s[place] [address] [place] [address] Tramadol 0 Refill(s) Active [address] Depakote 0 Refill(s) Active [address] quetiapine 0 Refill(s) Active [address] Sodium Chloride 2,000 mL, Inactive [place] 0.154 MEQ/ML 1,000 ml/hr, 2014 Medica l Injectable Infuse Over: Center Solution 2 hr, Route: IV, 2,000, Drug form: INJ, ONCE, Priority: STAT, Dosing Weight 75 kg, Start date: 06/26/14 4:56:00, Duration: 1 doses or times, Stop date: 06/26/14 4:56:00 Lorazepam Notes: (Same Inactive [facility] as: Ativan) [address] [place] [address] Metoclopramide Notes: (Same Inactive [facility] as: Reglan) [address] [place] [address] Zofran ODT 4 mg 4 mg, 1 tab, Active [facility] oral tablet, PO, BID, PRN, 2012 [facility] disintegrating Dissolve tab under tongue, 10 tab, Nausea and Vomiting, Substitution AllowedDissol ve tab under tongue Saline Flush 0.9% 5 mL, Route: No Longer Marry IVP, Drug Active 2012 [facility] Form: INJ, Dosing Weight 63.636, kg, PRN, PRN Line Flush, Start date: 04/14/13 23:10:00, Duration: 24 hr, Stop date: 04/15/13 23:09:00(Same as: BD Posiflush) morphine Sulfate 4 mg, Route: No Longer Marry IVP, ONCE, Active 2012 [facility] Dosing Weight 63.636, kg, Priority: STAT, Start date: 04/14/13 23:10:00, Stop date: 04/14/13 23:10:00 ketorolac 30 mg, Route: No Longer Marry IVP, ONCE, 2012 [facility] Dosing Weight 63.636, kg, Priority: STAT, Start date: 04/14/13 23:10:00, Stop date: 04/14/13 23:10:00 ondansetron 4 mg, Route: No Longer Marry IVP, ONCE, 2012 [facility] Dosing Weight 63.636, kg, Priority: STAT, Start date: 04/14/13 23:10:00, Stop date: 04/14/13 23:10:00 Sodium Chloride 1,000 mL, No Longer Marry 0.9% IV 1,000 mL Rate: 125 Active 2012 [facility] ml/hr, Infuse over: 8 hr, Route: IV, Dosing Weight 63.636 kg, Total Volume: 1,000, Start date: 04/14/13 23:10:00, Duration: 30 day, Stop date: 05/14/13 23:09:00 morphine Sulfate 5 mg, Route: IVP No Longer Hernandez IVP, ONCE, 2011 [facility] Dosing Weight 58.636, kg, Priority: STAT, Start date: 03/14/12 20:15:00, Stop date: 03/14/12 20:15:00 Sodium Chloride 500 mL, Rate: IV No Longer [facility] 0.9% (Bolus) IV 500 ml/hr, 2011 [facility] 500 mL Infuse over: 1 hr, Route: IV, kg, Total Volume: 500, Bolus Dose, Priority: STAT, Start date: 03/14/12 18:45:00, Duration: 1 doses or times, Stop date: 03/14/12 19:44:00 ondansetron 4 mg, Route: IVP No Longer [place] IVP, ONCE, 2011 [facility] Dosing Weight 58.636, kg, Priority: STAT, Start date: 03/14/12 17:19:00, Stop date: 03/14/12 17:19:00 morphine Sulfate 5 mg, Route: IVP No Longer [place] IVP, ONCE, 2011 [facility] Dosing Weight 58.636, kg, Priority: STAT, Start date: 03/14/12 17:19:00, Stop date: 03/14/12 17:19:00 pantoprazole 40 mg, Route: IVP No Longer [place] IVP, ONCE, 2011 [facility] Dosing Weight 58.636, kg, For IV push reconstitute with 10 ml 0.9% sodium chloride and push over at least 3 minutes, Priority: STAT, Start date: 03/14/12 17:19:00, Stop date: 03/14/12 17:19:00 Sodium Chloride 500 mL, Rate: IV No Longer [place] 0.9% (Bolus) IV 1,000 ml/hr, Active 2011 [facility] 500 mL Infuse over: 0.5 hr, Route: IV, kg, Total Volume: 500, Bolus dose, Priority: STAT, Start date: 03/14/12 17:19:00, Duration: 1 doses or times, Stop date: 03/14/12 17:48:00 Reglan 10 mg oral 10 mg, 1 tab, PO Active [facility] tablet PO, 2011 Medical QID-Before Center Meals, 120 tab, 1, 1, Substitution Allowed insulin 10 unit, 0.1 SUB-Q No Longer [facility] isophane-NPH mL, Route: Active 2011 Medical SUB-Q, Drug Center form: INJ, Bedtime, Start date: 11/29/11 21:00:00, Duration: 30 day, Stop date: 12/28/11 21:00:00 Insulin regular 8 unit, 0.08 SUB-Q No Longer [facility] mL, Route: Active 2011 Medical SUB-Q, Drug Center form: SOLN, Bedtime, Start date: 11/29/11 21:00:00, Duration: 30 day, Stop date: 12/28/11 21:00:00 trazodone 100 mg 200 mg, 2 PO No Longer [facility] oral tablet tab, Route: Active 2011 Medical PO, Drug Center form: TAB, Bedtime, Start date: 11/29/11 21:00:00, Duration: 30 day, Stop date: 12/28/11 21:00:00 Geodon 120 mg, 3 PO No Longer [facility] cap, Route: Active 2011 Medical PO, Drug Center form: CAP, Bedtime, Start date: 11/29/11 21:00:00, Duration: 30 day, Stop date: 12/28/11 21:00:00 amLODipine 5 mg, 1 tab, PO No Longer [facility] [place] Route: PO, Active 2011 Medical Drug form: Center TAB, ONCE, Priority: NOW, Start date: 11/29/11 20:11:00, Stop date: 11/29/11 20:11:00 morphine Sulfate 2 mg, Route: IVP No Longer Omidvar [facility] IVP, ONCE, Active 2011 Medical Start date: Center 11/29/11 16:33:00, Stop date: 11/29/11 16:33:00 morphine Sulfate 2 mg, 0.5 mL, IVP No Longer Omidvar [facility] Route: IVP, Active 2011 Medical Drug form: Center INJ, ONCE, Start date: 11/29/11 16:32:00, Stop date: 11/29/11 16:32:00 Tylenol 650 mg, 2 PO No Longer Omidvar [facility] tab, Route: Active 2011 Medical PO, [...] 10 unit, 0.1 SUB-Q No Longer Gunnar [facility] mL, Route: Active 2011 Medical SUB-Q, [...] Route: PO, Active 2011 Medical Drug form: [place] TAB, Daily, Start date: 11/29/11 9:00:00, Duration: 30 day, Stop date: 12/28/11 9:00:00 insulin aspart 10 unit, 0.1 SUB-Q No Longer Gunnar 11/28/ [facility] [place] mL, Route: Active 2011 Medical SUB-Q, Drug Center form: SOLN, TID-Before Meals, PRN Blood Glucose Results, Start date: 11/29/11 1:30:00, Duration: 30 day, Stop date: 12/29/11 1:29:00 Dextrose 50% 25 gm, 50 mL, IVP No Longer Gunnar [facility] Syringe Route: IVP, Active 2011 Medical [...] 5 ml, Route: IVP No Longer Gunnar 11/28/ [facility] IVP, Drug Active 2011 Medical Form: INJ, Center PRN, PRN Line Flush, Start date: 11/29/11 1:28:00, Duration: 30 day, Stop date: 12/29/11 1:27:00 ondansetron 4 mg, 2 mL, IVP No Longer [place] Route: IVP, Active 2011 Medical Drug form: [place] INJ, Q8H, PRN Nausea & Vomiting, Start date: 11/29/11 1:28:00, Duration: 30 day, Stop date: 12/29/11 1:27:00 Reglan 10 mg, 2 mL, IVP No Longer [facility] 11/28[facility] Route: IVP, Active 2011 Medical Drug form: [place] INJ, Q6H, Priority: STAT, Start date: 11/29/11 1:28:00, Duration: 30 day, Stop date: 12/29/11 0:00:00 Protonix 40 mg, Route: IV No Longer [facility] Baljinder as IV, Drug Active 2011 Medical form: INJ, Center ONCE, Priority: STAT, Start date: 11/29/11 1:28:00, Stop date: 11/29/11 1:28:00 metoclopramide 10 mg, 2 mL, IVP No Longer [facility] 11/28[facility] Route: IVP, Active 2011 Medical Drug form: Center INJ, ONCE, Priority: STAT, Start date: 11/28/11 23:01:00, Stop date: 11/28/11 23:01:00 Zofran 4 mg, 2 mL, IVP No Longer [facility] 11/28[facility] Route: IVP, Active 2011 Medical Drug form: [place] INJ, ONCE, Priority: STAT, Start date: 11/28/11 21:31:00, Stop date: 11/28/11 21:31:00 NS (Bolus) IV 1,000 mL, IV No Longer [facility] Baljinder as 1,000 mL Rate: 1,000 2011 [...] mg, 1 mL, IVP No Longer Domenico [place] Route: IVP, Active 2011 Medical Drug form: Center INJ, ONCE, Priority: STAT, Start date: 11/28/11 15:35:00, Stop date: 11/28/11 15:35:00 Novolin R 100 8 unit, SUB-Q Active [facility] Baljinder as units/mL SUB-Q, Q12H, 2011 Medical injectable 2 vial, Center solution Substitution Allowed, SOLN Novolin N 100 10 unit, SUB-Q Active [facility] [place] units/mL SUB-Q, 2011 Medical subcutaneous Bedtime, 10 Center injection ml, Substitution Allowed, SUSP Novolin N 100 14 unit, SUB-Q Active [facility] [place] units/mL SUB-Q, QAM, 1 2011 Medical subcutaneous vial, Center injection Substitution Allowed, SUSP magnesium oxide 400 mg, 1 PO No Longer [facility] tab, Route: Active 2011 Medical PO, Drug Center form: TAB, ONCE, Priority: STAT, Start date: 09/18/11 9:55:00, Stop date: 09/18/11 9:55:00 Insulin regular 8 unit, 0.08 SUB-Q No Longer [facility] 09/17 [facility] mL, Route: Active 2011 Medical SUB-Q, Drug Center form: SOLN, ONCE, Priority: STAT, Start date: 09/18/11 9:22:00, Stop date: 09/18/11 9:22:00 Lactated Ringers 1,000 mL, IV No Longer [facility] (Bolus) IV 1,000 Rate: 1,000 Active 2011 Med ical mL ml/hr, Infuse Center over: 1 hr, Route: IV, Total Volume: 1,000, Bolus Dose, Priority: STAT, Start date: 09/18/11 9:16:00, Duration: 1 doses or times, Stop date: 09/18/11 10:15:00 Sodium Chloride 1,000 mL, IV No Longer [facility] 0.9% (Bolus) IV Rate: 1,000 Active [...] 100 mg 100 mg, 1 PO Active [place] oral capsule cap, PO, BID, 2011 Medic al 60 cap, Center Substitution Allowed, CAP clindamycin 150 300 mg, 2 PO Active [place]han [place] mg oral capsule cap, PO, Q8H, 2011 Me dical 30 cap, Center Substitution Allowed, CAP [place] 10/325 oral 1 tab, PO, PO Active Zeeshan [place] tablet Q4H, PRN, 2011 Medical tab, Pain, Center Substitution Allowed, Maintenance, TAB [place] 10/325 oral 1 tab, Route: PO No [...] naloxone 0.04 mg, 0.1 IVP No Longer Hartland Micki mL, Route: Active 2011 Medical IVP, Drug Center form: INJ, Q2MIN, PRN Narcotic Reversal, Start date: 09/07/11 9:19:00, Duration: 8 doses or times, Stop date: Limited # of times ondansetron 4 mg, 2 mL, IVP No Longer [place] Baljinder as Route: IVP, Active 2011 Medical Drug form: Center INJ, ONCE, PRN Nausea & Vomiting, Start date: 09/07/11 9:19:00 hydromorphone 0.5 mg, 0.25 IVP No Longer [place] Micki mL, Route: Active 2011 Medical IVP, Drug Center form: INJ, Q5Min, PRN Pain Score 4-6, Start date: 09/07/11 9:19:00, Duration: 5 doses or times, Stop date: Limited # of times acetaminophen-hyd 15 mL, Route: PO No Longer Gavin Micki rocodone 325 PO, Drug Active 2011 Medical mg-10 mg/15 mL Form: SOLN, Cente r oral solution Q4H, PRN Pain Score 4-6, Start date: 09/07/11 9:19:00, Duration: 1 day, Stop date: 09/08/11 8:00:00 Lactated Ringers 1,000 mL, IV No Longer Omidvar [place] IV 1,000 mL Rate: 125 Active 2011 Medical ml/hr, Infuse Center over: 8 hr, Route: IV, Dosing Weight 68.182 kg, Total Volume: 1,000, Start date: 09/07/11 9:06:00, Duration: 30 day, Stop date: 10/07/11 9:05:00 clindamycin 600 mg, IVPB No Longer Arias [facility] Route: IVPB, Active 2011 Medical ONCE, Start Center date: 09/07/11 8:31:00, Stop date: 09/07/11 8:31:00 normal saline 1,000 mL, IV No Longer [place] 0.9% IV 1,000 mL Rate: 100 Active 2011 Medic al ml/hr, Infuse Center over: 10 hr, Route: IV, Dosing Weight 68.18 kg, Total Volume: 1,000, Start date: 09/07/11 0:00:00, Duration: 30 day, Stop date: 10/06/11 23:59:00 normal saline 1,000 mL, IV No Longer [place] 0.9% IV 1000 mL Rate: 100 Active 2011 Medica l ml/hr, Infuse Center over: 10 hr, Route: IV, kg, Total Volume: 1,000, Start date: 09/06/11 8:25:00, Duration: 30 day, Stop date: 10/06/11 8:24:00 senna 8.6 mg oral 8.6 mg, 1 PO No Longer Omidvar [place] tablet tab, Route: Active 2011 Medical PO, [...] 40 mEq, 2 PO No Longer Omidvar [facility] chloride tab, Route: Active 2011 Medical PO, Drug Center form: ERTAB, ONCE, Start date: 09/05/11 9:11:00, Stop date: 09/05/11 9:11:00 Dulcolax Laxative 10 mg, 2 tab, PO No Longer Wong [place] Route: PO, Active 2011 Medical Drug form: Center ECTAB, Daily, PRN Constipation, Priority: NOW, Start date: 09/04/11 23:00:00, Duration: 30 day, Stop date: 10/04/11 22:59:00 Zofran 4 mg, 2 mL, IV No Longer Peg Route: IV, Active 2011 Medical Drug form: Center INJ, Q4H, PRN as needed for nausea/vomiti ng, Priority: NOW, Start date: 09/04/11 18:11:00, Duration: 30 day, Stop date: 10/04/11 18:10:00 [place] 10/325 oral 1 tab, Route: PO No Longer Dez [facility] tablet PO, Drug Active 2011 Medical [...] Duration: 30 day, Stop date: 10/04/11 9:49:00 [place] 10/325 oral 1 tab, Route: PO No Longer Omidvar Micki tablet PO, Drug Active 2011 Medical Form: [...] 40 mEq, 2 PO No Longer Omidvar [facility] chloride tab, Route: Active 2011 Medical PO, Drug Center form: ERTAB, ONCE, Start date: 09/03/11 8:39:00, Stop date: 09/03/11 8:39:00 [place] 5/325 oral 1 tab, Route: PO No Longer Kavon 08/19 [facility] tablet PO, Drug Active 2011 Medical Form: TAB, Center Q4H, Start date: 09/03/11 0:00:00, Duration: 30 day, Stop date: 10/02/11 20:00:00 Geodon 120 mg, 3 PO No Longer Anabelle [facility] cap, Route: Active 2011 Medical PO, [...] Route: PO, Active 2011 Medical Drug form: [place] ERCAP, Daily, Give qAM after today's dose., Start date: 09/02/11 12:00:00, Duration: 30 day, Stop date: 10/02/11 9:00:00 [place] 5/325 oral 1 tab, Route: PO No Longer Kavon 08/19 [facility] [place] tablet PO, Drug Active 2011 Medical Form: TAB, [place] Q4H, PRN Pain, Start date: 09/02/11 11:25:00, Duration: 30 day, Stop date: 10/02/11 11:24:00 magnesium sulfate 4 gm, 50 mL, IVPB No Longer Omidvar [facility] Route: IVPB, Active 2011 Medical Drug form: [place] INJ, ONCE, Start date: 09/02/11 11:15:00, Stop date: 09/02/11 11:15:00 Lovenox 40 mg, 0.4 SUB-Q No Longer Movva [facility] mL, Route: Active 2011 Medical SUB-Q, Drug Center form: INJ, Daily, Start date: 09/02/11 9:00:00, Duration: 30 day, Stop date: 10/01/11 9:00:00 vancomycin 1 gm, Route: IVPB No Longer Anabelle Baljinder as IVPB, Drug Active 2011 Medical form: INJ, [place] [id number], Start date: 09/02/11 9:00:00, Duration: 30 day, Stop date: 10/01/11 21:00:00 clindamycin 600 mg, 4 mL, IVPB No Longer [place] (SCIP[place] Route: IVPB, Active 2011 Medical [id number], Start Center date: 09/02/11 5:00:00, Duration: 3 doses or times, Stop date: 09/02/11 21:00:00 clindamycin 600 mg, 4 mL, IVPB No Longer Connally Micki (SCIP) Route: IVPB, Active 2011 [facility] [id number], Start Center date: 09/01/11 23:00:00, Duration: 3 doses or times, Stop date: 09/02/11 15:00:00 insulin 15 unit, 0.15 SUB-Q No Longer Omidvar [facility] isophane-NPH mL, Route: Active 2011 Medical [...] hydromorphone 0.5 mg, IVP No Longer Feliciano [facility] Route: IVP, Active 2011 Medical Q5Min, PRN Center Pain Score 4-6, Start date: 09/01/11 20:07:00, Duration: 5 doses or times, Stop date: Limited # of times naloxone 0.04 mg, IVP No Longer Feliciano [facility] Route: IVP, Active 2011 Medical Q2MIN, PRN Center Narcotic Reversal, Start date: 09/01/11 20:07:00, Duration: 8 doses or times, Stop date: Limited # of times flumazenil 0.2 mg, IVP No Longer Feliciano [facility] Route: IVP, Active 2011 Medical PRN, [...] Drug Active 2011 Medical form: INJ, Center [id number], Start date: 09/01/11 20:00:00, Duration: 30 day, Stop date: 10/01/11 8:00:00 Lactated Ringers 1,000 mL, IV No Longer Wong [facility] IV 1,000 mL Rate: 125 Active 2011 Medical ml/hr, Infuse Center over: 8 hr, Route: IV, Dosing Weight 68.2 kg, Total Volume: 1,000, Start date: 09/01/11 19:55:00, Duration: 30 day, Stop date: 10/01/11 19:54:00 vancomycin 1 gm, Route: IVPB No Longer Movva Baljinder as IVPB, Drug Active 2011 Medical form: INJ, Center [id number], Start date: 09/01/11 19:00:00, Duration: 30 day, Stop date: 10/01/11 7:00:00 insulin aspart 6 unit, 0.06 SUB-Q No Longer Movva [facility] mL, Route: Active 2011 Medical SUB-Q, Drug Center form: SOLN, TID-Before Meals, PRN Blood Glucose Results, Start date: 09/01/11 18:23:00, Duration: 30 day, Stop date: 10/01/11 18:22:00 glucagon 1 mg, Route: IM No Longer Movva [facility] IM, Drug Active 2011 Medical form: [place] PDR/INJ, PRN, PRN Blood Glucose Results, Start date: 09/01/11 18:23:00, Duration: 30 day, Stop date: 10/01/11 18:22:00 Dextrose 50% 25 gm, 50 mL, IVP No Longer Movva [facility] Syringe Route: IVP, Active 2011 Medical Drug Form: [place] INJ, PRN, PRN Blood Glucose Results, Start date: 09/01/11 18:23:00, Duration: 30 day, Stop date: 10/01/11 18:22:00 morphine Sulfate 2 mg, 1 mL, IVP No Longer Beni [facility] Route: IVP, Active 2011 Medical Drug form: [place] INJ, Q4H, PRN Severe Pain, Start date: 09/01/11 16:14:00, Stop date: 10/01/11 16:13:00 Lactated Ringers 1,000 mL, IV No Longer [place] [facility] IV 1,000 mL Rate: 100 Active 2011 Medical ml/hr, Infuse Center over: 10 hr, Route: IV, Dosing Weight 68.182 kg, Total Volume: 1,000, Start date: 09/01/11 14:03:00, Duration: 30 day, Stop date: 10/01/11 14:02:00 morphine Sulfate 4 mg, 1 mL, IVP No Longer [facility] Route: IVP, Active 2011 Medical Drug form: Center INJ, ONCE, Start date: 09/01/11 12:13:00, Stop date: 09/01/11 12:13:00 Lactated Ringers 2,000 mL, IV No Longer [facility] ([place]) IV 2,000 Rate: 100 Active 2011 Medic al mL ml/hr, Infuse Center over: 20 hr, Route: IV, Dosing Weight 68.18 kg, Total Volume: 2,000, Start date: 09/01/11 10:42:00, Duration: 1 doses or times, Stop date: 09/02/11 6:41:00 Insulin regular 8 unit, 0.08 SUB-Q No Longer [facility] mL, Route: Active 2011 Medical SUB-Q, Drug Center form: SOLN, ONCE, Priority: STAT, Start date: 09/01/11 10:28:00, Stop date: 09/01/11 10:28:00 Sodium Chloride 1,000 mL, IV No Longer [facility] [place] 0.9% (Bolus) IV Rate: 1,000 Active 2011 Medi [place] 1,000 mL ml/hr, Infuse Center over: 1 hr, Route: IV, Dosing Weight 68.18 kg, Total Volume: 1,000, Bolus Dose, Priority: STAT, Start date: 09/01/11 9:53:00, Duration: 1 doses or times, Stop date: 09/01/11 10:52:00 morphine Sulfate 4 mg, 1 mL, IVP No Longer [place] [facility] Route: IVP, Active 2011 Medical Drug form: [...] 4 mg, Route: IVP No Longer [place] IVP, Drug Active 2011 Medical form: INJ, Center ONCE, Priority: STAT, Start date: 09/01/11 4:06:00, Stop date: 09/01/11 4:06:00 morphine Sulfate 4 mg, Route: IVP No Longer Hope [place] IVP, ONCE, Active 2011 Medical Priority: [...] 8 unit, 0.08 IVP No Longer [place] mL, Route: Active 2011 Medical IVP, Drug Center form: SOLN, ONCE, Priority: STAT, Start date: 09/01/11 3:30:00, Stop date: 09/01/11 3:30:00 Sodium Chloride 1,000 mL, IV No Longer [place] 0.9% (Bolus) IV Rate: 1,000 Active 2011 [facility] [place] 1,000 mL ml/hr, Infuse Center over: 1 hr, Route: IV, Dosing Weight 68.182 kg, Total Volume: 1,000, Bolus Dose, Priority: STAT, Start date: 09/01/11 2:29:00, Duration: 1 doses or times, Stop date: 09/01/11 3:28:00 potassium 40 mEq, 2 PO No Longer [facility] chloride tab, Route: Active 2011 Medical PO, Drug Center form: ERTAB, BID, Start date: 08/23/11 9:00:00, Duration: 2 doses or times, Stop date: 08/23/11 17:00:00 amLODipine 5 mg 5 mg, 1 tab, PO Active [facility] oral tablet PO, Daily, 30 2011 Medica l tab, 3, 3, Center Substitution Allowed, TAB lisinopril 20 mg 40 mg, 2 tab, PO Active [facility] H [place] oral tablet PO, Daily, 60 2011 Medica l tab, 3, 3, Center Substitution Allowed, TAB Novolin N 100 18 Units, SUB-Q Active [facility] units/mL SUB-Q, BID, 3 2011 Medical subcutaneous vial, 3, 3, Center injection Substitution Allowed, SUSP insulin regular 5 Units, SUB-Q Active [facility] [place] human recombinant SUB-Q, TID, 2011 [place] dical 100 units/mL 30 vial, 3, Center injectable 3, solution Substitution Allowed, before breakfast lunch and dinner, SOLNbefore breakfast lunch and dinner potassium 20 mEq, 100 IVPB No Longer [facility] chloride mL, Route: Active 2011 Medical IVPB, Drug Center form: INJ, Q2H, Start date: 08/23/11 8:00:00, Duration: 2 doses or times, Stop date: 08/23/11 10:00:00 calcium chloride 1 gm, Route: IVPB No Longer [facility] IVPB, ONCE, Active 2011 Medical Priority: Center STAT, Start date: 08/23/11 7:28:00, Stop date: 08/23/11 7:28:00 potassium 40 mEq, IV No Longer Akmal [place] chloride Route: IV, Active 2011 Medical ONCE, Start Center date: 08/23/11 6:29:00, Stop date: 08/23/11 6:29:00 potassium 60 mEq, 3 PO No Longer Akmal [place] chloride 20 mEq tab, Route: Active 2011 Medi [place] oral tablet, PO, Drug [place] extended release form: ERTAB, ONCE, Start date: 08/23/11 6:27:00, Stop date: 08/23/11 6:27:00 magnesium sulfate 2 gm, 50 mL, IVPB No Longer Akmal [facility] Route: IVPB, Active 2011 Medical Drug form: Center INJ, ONCE, Total dose = 2 gm, Start date: 08/23/11 6:26:00, Duration: 1 doses or times, Stop date: 08/23/11 6:26:00 magnesium sulfate 2 gm, 50 mL, IVPB No Longer Ahmed [facility] Route: IVPB, Active 2011 Medical Drug form: Center INJ, ONCE, Total dose = 2 gm, Start date: 08/22/11 10:26:00, Duration: 1 doses or times, Stop date: 08/22/11 10:26:00 calcium gluconate 1,000 mg, 10 IVPB No Longer Ahmed Micki mL, Route: Active 2011 Medical IVPB, ONCE, Center Start date: 08/22/11 10:25:00, Stop date: 08/22/11 10:25:00 potassium 40 mEq, 2 PO No Longer Akmal [facility] chloride 20 mEq tab, Route: Active 2011 Medi [place] oral tablet, PO, Drug [place] extended release form: ERTAB, Daily, Start date: 08/22/11 9:00:00, Duration: 30 day, Stop date: 08/22/11 12:00:00 magnesium sulfate 2 gm, 50 mL, IVPB No Longer Akmal [facility] Route: IVPB, Active 2011 Medical Drug [...] mg, 1 tab, PO No Longer Rivero [facility] Route: PO, Active 2011 Medical Drug [...] 6.25 mg, 0.25 IVPB No Longer Rivero [facility] mL, Route: Active 2011 Medical IVPB, Drug Center form: INJ, Q6H, PRN Nausea & Vomiting, Start date: 08/20/11 15:41:00, Stop date: 09/19/11 15:40:00 Compazine 5 mg, 1 tab, PO No Longer [place] Route: PO, Active 2011 Medical Drug form: Center TAB, Q6H, PRN Nausea & Vomiting, Start date: 08/20/11 14:30:00, Duration: 30 day, Stop date: 09/19/11 14:29:00 Zofran 4 mg, 2 mL, IVP No Longer med [facility] Route: IVP, Active 2011 Medical Drug form: Center INJ, Q8H, PRN Nausea, Start date: 08/20/11 11:15:00, Duration: 30 day, Stop date: 09/19/11 11:14:00 insulin 10 unit, SUB-Q No Longer Rivero [facility] isophane-NPH Route: SUB-Q, Active 2011 Medic al ONCE, Start Center date: 08/20/11 10:00:00, Stop date: 08/20/11 10:00:00 trazodone 100 mg 200 mg, 2 PO [place] oral tablet tab, PO, 2011 Medical Bedtime, 90 Center tab, Substitution Allowed, TAB benztropine 1 mg 1 mg, 1 tab, PO Active [facility] oral tablet PO, BID, 60 2011 Medical tab, Center Substitution Allowed, TAB Geodon 60 mg oral 120 mg, 2 PO Active [place] capsule cap, PO, 2011 Medical Bedtime, 60 Center cap, Substitution Allowed, CAP insulin 10 unit, SUB-Q No Longer Rivero [facility] isophane-NPH Route: SUB-Q, Active 2011 Medic al Q12H, Start Center date: 08/20/11 9:00:00, Duration: 30 day, Stop date: 09/18/11 21:00:00 Geodon 60 mg, 3 cap, PO No Longer [place] Route: PO, Active 2011 Medical Drug form: Center CAP, BID, Start date: 08/20/11 9:00:00, Duration: 30 day, Stop date: 09/18/11 17:00:00 Effexor XR 75 mg, 1 cap, PO No Longer Rivero Micki Route: PO, Active 2011 Medical Drug form: Center ERCAP, Daily, Start date: 08/20/11 9:00:00, Duration: 30 day, Stop date: 09/18/11 9:00:00 potassium 15 mmol, 5 IV No Longer Rivero Baljinder as phosphate mL, Route: Active 2011 Medical IV, ONCE, Center Start date: 08/20/11 8:30:00, Stop date: 08/20/11 8:30:00 potassium 20 mEq, 100 IVPB No Longer [place] chloride mL, Route: Active 2011 [facility] IVPB, Drug Center form: INJ, Q2H, Total dose = 80 mEq, Start date: 08/20/11 8:00:00, Duration: 4 doses or times, Stop date: 08/20/11 14:00:00 potassium 15 mmol, IVPB No Longer Rivero Micki phosphate Route: IVPB, Active 2011 [facility] PRN, PRN Center Abnormal Lab Result, Start date: 08/20/11 6:47:00, Duration: 30 day, Stop date: 09/19/11 7:46:00 Insulin regular 6 unit, 0.06 SUB-Q No Longer Rivero Micki mL, Route: Active 2011 [facility] SUB-Q, Drug Center form: SOLN, ONCE, Start date: 08/20/11 3:38:00, Stop date: 08/20/11 3:38:00 Insulin regular 10 unit, SUB-Q No Longer [facility] [place] SUB-Q, BID, Active 2011 Medical Substitution Center Allowed insulin 10 unit, SUB-Q No Longer Micki isophane-NPH SUB-Q, BID, Active 2011 Medical Substitution Center Allowed NS 1,000 mL 1,000 mL, IV No Longer [facility] Micki Rate: 150 Active 2011 Medical ml/hr, [...] 50 mL, IVP No Longer Rivero 08/19/ [place] Syringe Route: IVP, Active 2011 Medical Drug Form: Center INJ, PRN, PRN Blood Glucose Results, Start date: 08/20/11 2:48:00, Duration: 30 day, Stop date: 09/19/11 3:47:00 Insulin regular 3 unit, SUB-Q No Longer [place] [facility] Route: SUB-Q, Active 2011 Medical Bedtime, PRN Center Blood Glucose Results, Start date: 08/20/11 2:48:00, Duration: 30 day, Stop date: 09/19/11 2:47:00 Dextrose 50% 25 gm, 50 ml, IVP No Longer [place] [facility] Syringe Route: IVP, Active 2011 Medical Drug Form: Center INJ, PRN, PRN Blood Glucose Results, Start date: 08/20/11 2:46:00, Duration: 30 day, Stop date: 09/19/11 3:45:00 ondansetron 4 mg, Route: IVP No Longer [facility] IVP, Drug Active 2011 Medical form: INJ, Center ONCE, Priority: STAT, Start date: 08/20/11 1:42:00, Stop date: 08/20/11 1:42:00 GI cocktail 30 ml, Route: PO No Longer [facility] PO, Drug Active 2011 Medical Form: SUSP, Center ONCE, STAT, Start date: 08/19/11 23:12:00, Stop date: 08/19/11 23:12:00 ondansetron 4 mg, Route: PO No Longer [facility] PO, Drug Active 2011 Medical form: TABDIS, Center ONCE, Priority: STAT, Start date: 08/19/11 23:10:00, Stop date: 08/19/11 23:10:00 Lactated Ringers 1,000 mL, IV No Longer [facility] ([place]) IV 1000 Rate: 1,000 Active 2011 Medi [place] mL ml/hr, Infuse Center over: 1 hr, Route: IV, Total Volume: 1,000, Bolus Dose, Priority: STAT, Start date: 08/19/11 23:10:00, Duration: 1 doses or times, Stop date: 08/20/11 0:09:00 Insulin regular 7 unit, 0.07 SUB-Q No Longer [facility] 08/19 [facility] mL, Route: Active 2011 Medical SUB-Q, Drug Center form: SOLN, ONCE, Priority: STAT, Start date: 08/19/11 22:15:00, Stop date: 08/19/11 22:15:00 Geodon 60 mg oral 60 mg, 1 cap, PO No Longer Rivero [facility] capsule PO, BID, 180 Active 2011 Medical cap, Center Substitution Allowed, CAP trazodone 300 mg 300 mg, 1 PO No Longer [place] oral tablet tab, PO, Active 2011 Medical Bedtime, 15 Center tab, Substitution Allowed, TAB Effexor XR 75 mg 75 mg, 1 cap, PO Active Rivero [facility] oral capsule, PO, Daily, 2011 [facility] extended release cap, Center Substitution Allowed Lactated Ringers 1,000 mL, IV No Longer Rivero Micki IV 1,000 mL Rate: 250 Active 2011 Medical ml/hr, Infuse Center over: 4 hr, Route: IV, Total Volume: 1,000, Priority: STAT, Start date: 08/19/11 17:03:00, Duration: 30 day, Stop date: 09/18/11 17:02:00 Sodium Chloride 100 mL, Rate: IV No Longer Rivero Micki 0.9% (titrate) Titrate, Active 2011 Medical 100 [...] 4 mg, Route: IVP No Longer Pooja [facility] IVP, ONCE, Active 2011 Medical Priority: Center STAT, Start date: 08/19/11 15:57:00, Stop date: 08/19/11 15:57:00 Reglan 10 mg, Route: IV No Longer Pooja [facility] IV, ONCE, Active 2011 Medical Start date: Center 08/19/11 15:57:00, Stop date: 08/19/11 15:57:00 Lactated Ringers 1,000 mL, IV No Longer Pooja [facility] ([place]) IV 1000 Rate: 1,000 Active 2011 Medi [place]ya mL ml/hr, Infuse Center over: 1 hr, Route: IV, Total Volume: 1,000, [place] Dose, Priority: STAT, Start date: 08/19/11 15:12:00, Duration: 1 doses or times, Stop date: 08/19/11 16:11:00 Allergies, Adverse Reactions, Alerts Substance Category Reaction Severity Reaction Status Date Comments S ource type Reported codeine Assertion Drug Active [facility] penicillins Assertion Drug Active [facility] Prolex DM Assertion Drug Active [facility] Ambien Assertion Drug Active [facility] lisinopril Assertion angioedema Drug Active [facility] Immunizations No Data Provided for This Section Results Order Name Results Value Reference Date Interpretation Comments Alycia rce [facility] ELECTROLYT AGAP 14.6 10.0 - 02/09 [facility] ES 20.0 /2017 Medical Center ELECTROLYT eGFR 33 02/ Result [facility] Comment: The Medical eGFR is Center [...] Calcium Lvl 8.3 8.5 - 10.5 07/30 [employer] [facility] ELECTROLYT Glucose Lvl 81 70 - 99 07/30 [facility] ELECTROLYT Creatinine 1.95 0.50 - 07/30 [facility] ES Lvl 1.40 [facility] ELECTROLYT BUN 55 7 - 22 07/30 [facility] ELECTROLYT CO2 19 24 - 32 07/30 [facility] ELECTROLYT Chloride Lvl 110 95 - 109 07/30 [facility] [facility] ELECTROLYT Sodium Lvl 139 135 - 145 07/30 [facility] [address] [place] [address] ELECTROLYT Potassium 4.6 3.5 - 5.1 07/30 [facility] Lvl [facility] HEMATOLOGY Lymphocytes 30.4 20.0 - 07/30 [facility] 40.0 [facility] HEMATOLOGY Eosinophils 4.5 0.0 - 4.0 07/30 [facility] HEMATOLOGY Monocytes 13.7 2.0 - 12.0 07/30 [facility] [address] [place] [address] HEMATOLOGY Segs-Bands # 2.6 1.5 - 8.1 07/30 [facility] HEMATOLOGY Basophils 0.7 0.0 - 1.0 07/30 [facility] [address] [place] [address] HEMATOLOGY Monocytes # 0.7 0.0 - 0.8 07/30 [facility] HEMATOLOGY Lymphocytes 1.6 1.0 - 5.5 07/30 [facility] HEMATOLOGY Eosinophils 0.2 0.0 - 0.5 07/30 [facility] HEMATOLOGY Segs 50.7 45.0 - 07/30 [facility] 75.0 [facility] HEMATOLOGY PB Smear Peripheral 07/30 [facility] Path blood /2016 [facility] smear Center shows hypochromi c normocytic anemia with anisopoiki locytsosis , no increase in schistocyt es, slight polychroma antonia, frequent eccinocyte s, occasional eliptocyte s, and moderate thrombocyt openia. Impression : (1) No evidence of microangio pathic hemolysis (2) RBC morphology is suggestive of anemia of chronic disease or iron deficiency anemia, and renal disease. CPT: 27103 HEMATOLOGY Hct 28.1 36.0 - 07/30 [place] 48.0 [facility] HEMATOLOGY RBC 3.39 4.20 - 07/30 [place] 5.40 /2016 [facility] HEMATOLOGY Hgb 8.9 12.0 - 07/30 [place] 16.0 /2016 [facility] HEMATOLOGY WBC 5.1 3.7 - 10.4 07/30 [facility] HEMATOLOGY MPV 11.3 7.4 - 10.4 07/30 [facility] HEMATOLOGY Platelet 118 133 - 450 07/30 [facility] HEMATOLOGY MCHC 31.8 32.0 - 02 [place] 36.0 [facility] HEMATOLOGY RDW 18.0 11.5 - 07/30 14.5 [facility] HEMATOLOGY MCV 83.0 80.0 - 07/30 98.0 [facility] HEMATOLOGY MCH 26.4 27.0 - 07/30 [place] 31.0 [facility] IMMUNOLOGY C3 137 88 - 201 07/30 [facility] IMMUNOLOGY HIV. Negative Negative 07/30 [facility] (07/30/16 5:32 AM) [place] HEMATOLOGY PB Smear Peripheral 07/29 [facility] blood Medical smear Center shows hypochromi c normocytic anemia with anisopoiki locytsosis , no increase in schistocyt es, moderate polychroma antonia, frequent eccinocyte s, occasional eliptocyte s, and moderate thrombocyt openia. Impression : (1) No evidence of microangio pathic hemolysis (2) RBC morphology is suggestive of anemia of chronic disease or iron deficiency anemia, and renal disease. CPT: 57884 IMMUNOLOGY HIV. Negative Negative 07/29 [facility] *NA* [facility] (07/29/16 5:05 AM) [place] IMMUNOLOGY C3 92 88 - 201 07/29 [facility] CHEM PANEL eGFR 25 07/28 [facility] Comment: The [facility] eGFR is Center calculated using the CKD-EPI [...] 55 7 - 22 07/28 [facility] CHEM PANEL CO2 23 24 - 32 07/28 [facility] CHEM PANEL Chloride Lvl 109 95 - 109 07/28 [facility] CHEM PANEL Glucose Lvl 101 70 - 99 07/28 2016 [facility] CHEM PANEL Potassium 4.0 3.5 - 5.1 07/28 [facility] CHEM PANEL Sodium Lvl 141 135 - 145 07/28 [facility] CHEM PANEL AGAP 13.0 10.0 - 02 [place] 20.0 [facility] CHEM PANEL Calcium Lvl 7.7 8.5 - 10.5 07/28 [facility] CHEM PANEL Creatinine 2.49 0.50 - 07/28 [facility] Lvl 1.40 /2016 [facility] HEMATOLOGY PT 14.8 12.0 - 02 [place] 14.7 [facility] HEMATOLOGY PTT 40.8 22.9 - 02 [place] 35.8 /2016 [facility] HEMATOLOGY INR 1.14 0.85 - 02 [place] 1.17 [facility] IMMUNOLOGY C3 94 88 - 201 02 [facility] Complement [facility] HEMATOLOGY Lymphocytes 1.7 1.0 - 5.5 07/28 [facility] # /2016 [facility] HEMATOLOGY Segs-Bands # 2.7 1.5 - 8.1 07/28 [facility] HEMATOLOGY Eosinophils 0.1 0.0 - 0.5 07/[place] # /2016 [facility] HEMATOLOGY Monocytes # 0.7 0.0 - 0.8 07/28 [facility] HEMATOLOGY Segs 51.3 45.0 - 07/28 [place] 75.0 /2016 [facility] HEMATOLOGY Lymphocytes 31.6 20.0 - 02 [place] 40.0 /2016 [facility] HEMATOLOGY Monocytes 14.1 2.0 - 12.0 07/28 [facility] HEMATOLOGY Eosinophils 2.6 0.0 - 4.0 07/28 a s /2016 [facility] HEMATOLOGY Basophils 0.4 0.0 - 1.0 07/28 [facility] HEMATOLOGY PB Smear Peripheral 07/28 [facility] Path blood /2016 Medical smear Center shows hypochromi c normocytic anemia with anisopoiki locytsosis , no increase in schistocyt es, slight polychroma antonia, a few estella cells, moderate thrombocyt openia. Impression : (1) no evidence of microangio pathic hemolysis, (2) RBC morphology is suggestive of anemia of chronic disease or iron deficiency anemia, and renal disease. CPT: 61649 HEMATOLOGY Hct 29.3 36.0 - 07/28 48.0 [facility] HEMATOLOGY Hgb 9.2 12.0 - 07/28 16.0 [facility] HEMATOLOGY RBC 3.54 4.20 - 07/28 [place] 5.40 /2016 [facility] HEMATOLOGY WBC 5.3 3.7 - 10.4 07/28 [facility] HEMATOLOGY Platelet 87 133 - 450 07/28 [facility] HEMATOLOGY MCHC 31.4 32.0 - 02 36.0 /2016 [facility] HEMATOLOGY RDW 17.9 11.5 - 07/28 14.5 [facility] HEMATOLOGY MPV 10.9 7.4 - 10.4 07/28 [facility] HEMATOLOGY MCH 26.0 27.0 - 07/28 31.0 [facility] HEMATOLOGY MCV 82.8 80.0 - 07/28 [facility] 98.0 [facility] IMMUNOLOGY HIV. Negative Negative 07/28 [facility] *NA* /2016 Medical (07/28/16 4:35 AM) Center CARDIAC Total CK 190 12 - 191 07/27 [facility] CHEM PANEL Calcium Lvl 7.8 8.5 - 10.5 07/27 [facility] CHEM PANEL CO2 21 24 - 32 07/27 [facility] CHEM PANEL Sodium Lvl 140 135 - 145 02 [facility] CHEM PANEL Potassium 3.8 3.5 - 5.1 07/27 [facility] CHEM PANEL Chloride Lvl 106 95 - 109 07/27 [facility] CHEM PANEL Bili Total 0.4 0.2 - 1.3 07/27 [facility] CHEM PANEL Alk Phos 74 39 - 136 07/27 [facility] CHEM PANEL eGFR 19 07/27 [facility] Comment: The [facility] eGFR is Center calculated using the CKD-EPI [...] PANEL Total 5.2 6.4 - 8.4 07/27 [facility] CHEM PANEL ALT 822 0 - 65 07/27 [facility] CHEM PANEL AST 205 0 - 37 07/27 [facility] CHEM PANEL Albumin Lvl 1.8 3.5 - 5.0 07/27 [facility] CHEM PANEL BUN 54 7 - 22 07/27 [facility] CHEM PANEL Glucose Lvl 143 70 - 99 07/27 [facility] CHEM PANEL Creatinine 3.11 0.50 - 02 [facility] 1.40 [facility] CHEM PANEL B/C Ratio 17 6 - 25 07/27 [facility] CHEM PANEL AGAP 16.8 10.0 - 02 [place] 20.0 [facility] CHEM PANEL Globulin 3.4 2.7 - 4.2 07/27 [facility] CHEM PANEL A/G Ratio 0.5 0.7 - 1.6 02/ [facility] CHEM PANEL Magnesium 2.0 1.8 - 2.4 02/ [facility] Lvl [facility] CHEM PANEL Phosphorus 3.7 2.5 - 4.5 02/ [facility] HEMATOLOGY RDW 17.7 11.5 - 02 [place] 14.5 /2016 [facility] HEMATOLOGY MCHC 32.9 32.0 - 02/ [place] 36.0 [facility] HEMATOLOGY Hct 25.4 36.0 - 02/ [place] 48.0 /2016 [facility] HEMATOLOGY MCH 26.4 27.0 - 02 [place] 31.0 [facility] HEMATOLOGY MCV 80.3 80.0 - 02 [facility] 98.0 [facility] HEMATOLOGY MPV 11.4 7.4 - 10.4 02 [facility] [address] [place] [address] HEMATOLOGY Platelet 74 133 - 450 02 [facility] HEMATOLOGY RBC 3.16 4.20 - 02 [place] 5.40 /2016 [facility] HEMATOLOGY WBC 5.3 3.7 - 10.4 02/ [facility] [address] [place] [address] HEMATOLOGY Hgb 8.4 12.0 - 02/ [place] 16.0 [facility] HEMATOLOGY Monocytes 14.5 2.0 - 12.0 02/ [address] [place] [address] HEMATOLOGY Lymphocytes 29.8 20.0 - 02/ [place] 40.0 [facility] HEMATOLOGY Eosinophils 0.1 0.0 - 0.5 02/ [place] # [facility] HEMATOLOGY Monocytes # 0.8 0.0 - 0.8 02/ s [facility] HEMATOLOGY Segs-Bands # 2.9 1.5 - 8.1 02 as [facility] HEMATOLOGY Lymphocytes 1.6 1.0 - 5.5 02/ [place] # [facility] HEMATOLOGY Basophils 0.4 0.0 - 1.0 02/ [facility] [address] [place] [address] HEMATOLOGY Eosinophils 1.2 0.0 - 4.0 02/ [place] [facility] HEMATOLOGY Segs 54.1 45.0 - 02/ [place] 75.0 Medical Center SPECIAL Hgb A1C 8.9 <=5.6 % 07/27 [facility] CHEMISTRY [facility] CARDIAC Total CK 344 12 - 191 07/26 [facility] ENZYMES [facility] IMMUNOLOGY IVETTE Positive Negative 07/26 *ABN* Medical (07/26/16 11:40 AM) Center 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 Center IMMUNOLOGY SS-B ([place]) Ab <0.2 <=0.9 [place] 07/26 [place] [facility] IMMUNOLOGY SS-A (Ro) Ab <0.2 <=0.9 AI 07/26 [facility] IMMUNOLOGY DNA Ab (DS) Negative Negative 07/26 [facility] (07/26/16 11:40 AM) Medica l Center IMMUNOLOGY IVETTE Titer 1:40 Negative 07/26 *ABN* Medical (07/26/16 11:40 AM) Center URINE CHEM U Sodium 21 07/26 [facility] HEMATOLOGY INR 1.11 0.85 - 07/26 [place] 1.17 [facility] HEMATOLOGY PT 14.5 12.0 - 07/26 [facility] 14.7 [facility] IMMUNOLOGY Hep A IgM Negative Negative 07/26 [place] *NA* Medical (07/26/16 8:00 AM) Center IMMUNOLOGY Hep B Core Negative Negative 07/26 [facility] IgM *NA* Medical (07/26/16 8:00 AM) Center IMMUNOLOGY Hep C Ab Negative 07/26 [place] *NA* Medical (07/26/16 8:00 AM) Center IMMUNOLOGY Hep Bs Ag Negative Negative 07/26 *NA* Medical (07/26/16 8:00 AM) Center CHEM PANEL B/C Ratio 17 6 - 25 07/26 [facility] CHEM PANEL ALT 1232 0 - 65 07/26 [facility] CHEM PANEL A/G Ratio 0.5 0.7 - 1.6 07/26 [facility] CHEM PANEL Bili Total 0.3 0.2 - 1.3 07/26 [facility] [place] /[address] [place] [address] CHEM PANEL Alk Phos 79 39 - 136 07/[address] CHEM PANEL AST 586 0 - 37 07/26 [facility]2016 [facility] CHEM PANEL Total 5.5 6.4 - 8.4 07/26 [facility] Protein [facility] CHEM PANEL Globulin 3.7 2.7 - 4.2 07/[address] CHEM PANEL Albumin Lvl 1.8 3.5 - 5.0 07/26 [place] [facility] CHEM PANEL Magnesium 2.1 1.8 - 2.4 07/26 [facility] HEMATOLOGY Acanthocyte Slight 07/[address] HEMATOLOGY Rouleaux Present None Seen 07/26 [facility]* [facility] (07/26/16 4:42 AM) [place] HEMATOLOGY Anisocyte 1+ None Seen 07/26 [facility]* [facility] (07/26/16 4:42 AM) [place] HEMATOLOGY Basophils # 0.1 0.0 - 0.2 07/26 [facility] HEMATOLOGY Large Plt Moderate None Seen 07/26 [facility] (07/26/16 4:42 AM) [place] IMMUNOLOGY C4 42 16 - 47 07/26 [facility] URINE AND UA Sq Epi None Seen 07/[address] URINE AND UA Waxy Cast 1 <=0 /LPF 07/[address] URINE AND UA Hyal Cast 4 0 - 2 07/[address] URINE AND UA Bacteria Occasional None Seen 07[place] /HPF /HPF /2016 [facility] URINE AND UA Mucus Few /LPF None Seen 07/25 [facility] STOOL /LPF /[address] [place] [address] URINE AND UA Amorph Occasional None Seen 07/[place]iny /HPF /HPF /[address] [place] [address] URINE AND UA Leuk Est Negative Negative 07/25 [facility] STOOL (07/25/16 10:34 AM) [facility] [place] URINE AND UA Nitrite Negative Negative 07/25 [facility] (07/25/16 10:34 AM) /2016 [facility] URINE AND UA RBC 2 0 - 2 07/[address] URINE AND UA WBC 6 0 - 5 07/[address] URINE AND UA 2.0 0.1 - 1.0 07/25 [facility] Urobilinogen /2016 [facility] URINE AND UA Ketones Negative Negative 07/25 [facility] STOOL mg/dL mg/dL [facility] URINE AND UA Glucose 70 mg/dL Negative 07/25 [facility] mg/dL [facility] URINE AND UA Blood Negative Negative 07/25 [facility] (07/25/16 10:34 AM) Medica l [place] URINE AND UA Bili Negative Negative 07/25 [facility] STOOL *NA* [facility] (07/25/16 10:34 AM) [place] URINE AND UA Protein >=300 Negative 07/25 [facility] mg/dL mg/dL [facility] URINE AND UA Spec Grav 1.012 <=1.030 07/25 [facility] URINE AND UA pH 5.5 5.0 - 8.0 07/25 [facility] URINE AND UA Turbidity Slight Clear 07/25 [facility] *ABN* [facility] (07/25/16 10:34 AM) [place] URINE AND UA Color Dark Yellow Yellow 07/25 [facility] *NA* /2016 [facility] (07/25/16 10:34 AM) [place] URINE AND UA Gran Cast 9 07/25 [facility] [address] [place] [address] URINE CHEM U Sodium 30 07/25 [facility] [address] [place] [address] URINE CHEM U Prot/Creat 3.1 07/25 [facility] [address] [place] [address] URINE CHEM U Protein 420.9 07/25 [facility] [address] [place] [address] URINE CHEM U Creatinine 136.00 07/25 [facility] [address] [place] [address] CHEM PANEL Magnesium 2.0 1.8 - 2.4 07/25 [facility] Lvl [facility] CHEM PANEL Phosphorus 5.2 2.5 - 4.5 07/25 [facility] [address] [place] [address] CARDIAC Troponin-I 0.28 0.00 - 07/24 [facility] ENZYMES 0.40 /2016 [facility] CARDIAC Total CK 2616 12 - 191 07/24 [facility] ENZYMES /2016 [facility] CARDIAC Troponin-T 0.144 0.000 - 07/24 Result [facility] ENZYMES 0.100 /2016 Comment: Medical Critical Center Result(s) called to Jennifer Reardon at 07/24/2016 13:00 byMIA. Read back OK. CARDIAC CK MB Index 0.2 0.0 - 2.5 07/24 [facility] [place] ENZYMES /2017 [facility] CARDIAC CK MB 6.3 0.5 - 3.6 07/24 [place] ENZYMES /2017 Medical Center CARDIAC Troponin-I 0.38 0.00 - 07/24 [place] ENZYMES 0.40 /2017 [facility] CARDIAC Troponin-T 0.173 0.000 - 07/24 Result [place] ENZYMES 0.100 /2017 Comment: Medical Critical Center Result(s) called to Nora Salcedo at 07/24/2016 07:48 byMIA. Read back OK. CARDIAC CK MB Index 0.2 0.0 - 2.5 07/24 [place] ENZYMES /2017 [facility] CARDIAC CK MB 5.6 0.5 - 3.6 07/24 [place] ENZYMES /2016 Medical Center CHEM PANEL Phosphorus 5.5 2.5 - 4.5 07/24 [facility] CARDIAC BNP 701 <=100 07/24 [place] ENZYMES pg/mL /2016 [facility] CARDIAC Troponin-I 0.57 0.00 - 07/24 Result [place] ENZYMES 0.40 Comment: Medical Critical Center Result(s) called to Chrsis Morales at 07/23/2016 23:25 by AC. Read back OK. CARDIAC BNP 526 <=100 06/15 [place] ENZYMES pg/mL [facility] CHEM PANEL Magnesium 2.1 1.8 - 2.4 06/15 Lv [facility] CHEM PANEL Glucose Lvl 117 70 - 99 06/15 [facility] CHEM PANEL BUN 41 7 - 22 06/15 [facility] CHEM PANEL Creatinine 2.00 0.50 - 06/15 [place] Lvl 1.40 [facility] CHEM PANEL Calcium Lvl 9.0 8.5 - 10.5 06/15 Baljinder as [facility] CHEM PANEL Chloride Lvl 102 95 - 109 06/15 [place] [facility] CHEM PANEL CO2 33 24 - 32 06/15 [facility] CHEM PANEL Sodium Lvl 144 135 - 145 06/15 [facility] CHEM PANEL Potassium 4.0 3.5 - 5.1 06/15 [place] Lvl [facility] CHEM PANEL eGFR 32 06/15 Result [...] 10.0 - 06/15 [place] 20.0 [facility] CHEM PANEL Phosphorus 4.6 2.5 - 4.5 06/15 [facility] HEMATOLOGY RBC 3.68 4.20 - 06/15 [place] 5.40 /2015 [facility] HEMATOLOGY Hgb 9.9 12.0 - 06/15 [place] 16.0 [facility] HEMATOLOGY MCH 26.8 27.0 - 06/15 [place] 31.0 [facility] HEMATOLOGY MCHC 34.2 32.0 - 06/15 [place] 36.0 [facility] HEMATOLOGY MCV 78.3 80.0 - 06/15 [place] 98.0 [facility] HEMATOLOGY Hct 28.8 36.0 - 06/15 [place] 48.0 [facility] HEMATOLOGY Platelet 191 133 - 450 06/15 [facility] HEMATOLOGY MPV 9.5 7.4 - 10.4 06/15 [facility] HEMATOLOGY RDW 15.3 11.5 - 06/15 [place] 14.5 [facility] HEMATOLOGY WBC 5.6 3.7 - 10.4 06/15 [facility] HEMATOLOGY Eosinophils 0.5 0.0 - 0.5 06/15 [place] # [facility] HEMATOLOGY Microcyte 1+ None Seen 06/15 [facility] *ABN* /2015 Medical (06/15/16 4:22 AM) Cente r HEMATOLOGY Basophils # 0.1 0.0 - 0.2 06/15 [place] /2015 [facility] HEMATOLOGY Lymphocytes 33.5 20.0 - 06/15 [place] 40.0 [facility] HEMATOLOGY Segs 47.6 45.0 - 06/15 [place] 75.0 [facility] HEMATOLOGY Monocytes 8.4 2.0 - 12.0 06/15 [facility] HEMATOLOGY Eosinophils 9.4 0.0 - 4.0 06/15 [facility] HEMATOLOGY Segs-Bands # 2.6 1.5 - 8.1 06/15 [facility] HEMATOLOGY Lymphocytes 1.9 1.0 - 5.5 06/15 a s [facility] HEMATOLOGY Basophils 1.1 0.0 - 1.0 06/15 [facility] HEMATOLOGY Monocytes # 0.5 0.0 - 0.8 06/15 [facility] CHEM PANEL Phosphorus 4.8 2.5 - 4.5 06/14 [facility] CHEM PANEL Magnesium 2.0 1.8 - 2.4 06/14 [facility] CHEM PANEL eGFR 32 06/14 [facility] [...] Chloride Lvl 101 95 - 109 06/14 [facility] CHEM PANEL Potassium 4.4 3.5 - 5.1 06/14 [facility] CHEM PANEL BUN 37 7 - 22 06/14 [facility] CHEM PANEL Glucose Lvl 119 70 - 99 06/14 MH [facility] CHEM PANEL Creatinine 2.00 0.50 - 06/14 [place] Lvl 1.40 Medical Center CHEM PANEL Sodium Lvl 142 135 - 145 06/14 [facility] CHEM PANEL Calcium Lvl 8.7 8.5 - 10.5 06/14 [facility] Center CHEM PANEL CO2 32 24 - 32 06/14 [facility] CHEM PANEL AGAP 13.4 10.0 - 06/14 [place] 20.0 [facility] HEMATOLOGY Eosinophils 10.3 0.0 - 4.0 06/14 [place] [facility] HEMATOLOGY Basophils # 0.1 0.0 - 0.2 06/14 [facility] HEMATOLOGY Eosinophils 0.5 0.0 - 0.5 06/14 [place] # [facility] HEMATOLOGY Monocytes # 0.5 0.0 - 0.8 06/14 a [facility] HEMATOLOGY Segs-Bands # 2.1 1.5 - 8.1 06/14 [facility] HEMATOLOGY Basophils 1.2 0.0 - 1.0 06/14 [facility] HEMATOLOGY Lymphocytes 1.9 1.0 - 5.5 06/14 [place] # [facility] HEMATOLOGY Segs 42.5 45.0 - 06/14 [place] 75.0 [facility] HEMATOLOGY Lymphocytes 37.0 20.0 - 06/14 [place] 40.0 [facility] HEMATOLOGY Monocytes 9.0 2.0 - 12.0 06/14 [facility] HEMATOLOGY MPV 9.8 7.4 - 10.4 06/14 [facility] HEMATOLOGY WBC 5.0 3.7 - 10.4 06/14 [facility] HEMATOLOGY RBC 3.57 4.20 - 06/14 [place] 5.40 [facility] HEMATOLOGY Hgb 9.4 12.0 - 06/14 [place] 16.0 [facility] HEMATOLOGY Hct 28.5 36.0 - 06/14 [place] 48.0 [facility] HEMATOLOGY Platelet 183 133 - 450 06/14 [facility] HEMATOLOGY MCV 79.9 80.0 - 06/14 [place] 98.0 [facility] HEMATOLOGY MCH 26.3 27.0 - 06/14 [place] 31.0 /2016 [facility] HEMATOLOGY MCHC 33.0 32.0 - 06/14 [place] 36.0 /2016 [facility] HEMATOLOGY RDW 15.9 11.5 - 06/14 [place] 14.5 [facility] URINE CHEM U Prot/Creat 6.9 06/13 /2015 [facility] URINE CHEM U Creatinine 19.30 06/13 /2015 [facility] URINE CHEM U Protein 133.1 06/13 /2015 [facility] HEMATOLOGY MPV 9.7 7.4 - 10.4 06/13 /2015 [facility] HEMATOLOGY Platelet 184 133 - 450 06/13 /2015 [facility] HEMATOLOGY RDW 15.9 11.5 - 06/13 [place] 14.5 [facility] HEMATOLOGY MCV 79.3 80.0 - 06/13 [place] 98.0 /2015 [facility] HEMATOLOGY MCHC 33.0 32.0 - 06/13 [place] 36.0 /2016 [facility] HEMATOLOGY MCH 26.2 27.0 - 06/13 [place] 31.0 /2016 [facility] HEMATOLOGY Hct 29.4 36.0 - 06/13 [place] 48.0 /2016 [facility] HEMATOLOGY Hgb 9.7 12.0 - 06/13 [place] 16.0 /2016 [facility] HEMATOLOGY RBC 3.70 4.20 - 06/13 [place] 5.40 /2016 [facility] HEMATOLOGY WBC 5.7 3.7 - 10.4 06/13 /2015 [facility] HEMATOLOGY Basophils # 0.1 0.0 - 0.2 06/13 [place] /[place] [facility] HEMATOLOGY Lymphocytes 2.2 1.0 - 5.5 06/13 [place] # /2016 [facility] HEMATOLOGY Eosinophils 0.5 0.0 - 0.5 06/13 [place] # /2016 [facility] HEMATOLOGY Monocytes # 0.5 0.0 - 0.8 06/13 [place] /2015 [facility] HEMATOLOGY Basophils 1.1 0.0 - 1.0 06/13 [facility] HEMATOLOGY Segs-Bands # 2.3 1.5 - 8.1 06/13 Baljinder as /2015 [facility] HEMATOLOGY Eosinophils 9.5 0.0 - 4.0 06/13 [place] /2016 [facility] HEMATOLOGY Monocytes 9.0 2.0 - 12.0 06/13 [facility] HEMATOLOGY Lymphocytes 38.9 20.0 - 06/13 [place] 40.0 /2015 [facility] HEMATOLOGY Segs 41.5 45.0 - 06/13 [facility] 75.0 /2015 [facility] CHEM PANEL Magnesium 1.7 1.8 - 2.4 06/13 [facility] CHEM PANEL Phosphorus 4.2 2.5 - 4.5 06/13 [facility] ELECTROLYT AGAP 14.3 10.0 - 06/13 [facility] ES 20.0 [facility] ELECTROLYT eGFR 41 06/13 Result [facility] Comment: The [facility] eGFR is Center calculated using the CKD-EPI [...] - 109 06/13 [place] [facility] ELECTROLYT Calcium Lvl 8.5 8.5 - 10.5 06/13 Baljinder as [facility] ELECTROLYT CO2 32 24 - 32 06/13 [facility] ELECTROLYT Glucose Lvl 173 70 - 99 06/13 [facility] ELECTROLYT BUN 37 7 - 22 06/13 [facility] ELECTROLYT Creatinine 1.63 0.50 - 06/13 [facility] Lvl 1.40 [facility] ELECTROLYT Potassium 4.3 3.5 - 5.1 06/13 [facility] Lvl [facility] ELECTROLYT Sodium Lvl 145 135 - 145 06/13 [facility] CHEM PANEL Ammonia 48.0 <=45.0 06/11 [facility] uMol/L [facility] IMMUNOLOGY IVETTE Interp Pattern 06/11 [place] [facility] [place] IMMUNOLOGY IVETTE Titer 1:40 Negative 06/11 [place] [...] r IMMUNOLOGY HIV Ag/Ab Negative Negative 06/11 [facility] 4th Gen *NA Medical (06/11/16 8:56 AM) Cente r IMMUNOLOGY IVETTE Positive Negative 06/11 [place] *ABN* Medical (06/11/16 8:56 AM) Cente r CHEM PANEL Bili Total 0.1 0.2 - 1.3 06/11 [facility] CHEM PANEL Total 5.2 6.4 - 8.4 06/11 [facility] CHEM PANEL Albumin Lvl 1.6 3.5 - 5.0 06/11 [place] [facility] CHEM PANEL B/C Ratio 20 6 - 25 06/11 [facility] CHEM PANEL Globulin 3.6 2.7 - 4.2 06/11 [facility] CHEM PANEL A/G Ratio 0.4 0.7 - 1.6 06/11 [facility] CHEM PANEL Alk Phos 74 39 - 136 06/11 [facility] CHEM PANEL ALT 14 0 - 65 06/11 [facility] CHEM PANEL AST 13 0 - 37 06/11 [facility] HEMATOLOGY INR 1.06 0.85 - 06/11 [place] 1.17 /2015 [facility] HEMATOLOGY PT 14.0 12.0 - 06/11 [place] 14.7 /2016 [facility] HEMATOLOGY PTT 36.4 22.9 - 06/11 [place] 35.8 /2015 [facility] SPECIAL Hgb A1C 10.5 <=5.6 % 06/11 [place] CHEMISTRY /2015 [facility] CARDIAC CK MB Index 1.8 0.0 - 2.5 06/11 [place] ENZYMES /2015 [facility] CARDIAC CK MB 2.9 0.5 - 3.6 06/11 [facility] ENZYMES [facility] CARDIAC Troponin-T 0.061 0.000 - 06/11 [place] ENZYMES 0.100 [facility] CARDIAC Total CK 159 12 - 191 06/11 [facility] ENZYMES [facility] CARDIAC Troponin-I <0.02 0.00 - 06/11 [place] ENZYMES 0.40 [facility] CHEM PANEL Bili Total 0.2 0.2 - 1.3 06/11 [facility] CHEM PANEL Bili Direct 0.1 0.0 - 0.3 06/11 [place] [facility] CHEM PANEL Bili 0.1 0.0 - 1.0 06/11 Indirect [facility] CHEM PANEL Total 5.7 6.4 - 8.4 06/11 Protein [facility] CHEM PANEL A/G Ratio 0.5 0.7 - 1.6 06/11 [facility] CHEM PANEL Albumin Lvl 1.8 3.5 - 5.0 06/11 [place] [facility] CHEM PANEL Globulin 3.9 2.7 - 4.2 06/11 [facility] CHEM PANEL Alk Phos 99 39 - 136 06/11 [facility] CHEM PANEL AST 21 0 - 37 06/11 [facility] CHEM PANEL ALT 17 0 - 65 06/11 [facility] DRUG UDS Note See Note 06/11 [...] Negative Negative 06/11 [facility] [place] SCREEN Scr * Medical (06/10/16 8:08 PM) Cente r DRUG U Cannab Scr Negative Negative 06/11 [place] SCREEN *NA* Medical (06/10/16 8:08 PM) Cente r DRUG U Amph Scr Negative Negative 06/11 [place] SCREEN *NA* Medical (06/10/16 8:08 PM) Cente r DRUG U Kelly Scr Negative Negative 06/11 [place] SCREEN *NA* Medical (06/10/16 8:08 PM) Cente r DRUG U Benzodia Negative Negative 06/11 [facility] SCREEN Scr *NA* Medical (06/10/16 8:08 PM) Cente r DRUG U Cocaine Negative Negative 06/11 [facility] SCREEN Scr *NA* Medical (06/10/16 8:08 PM) Cente r LIPIDS LDL 75 <=99 mg/dL 06/11 [facility] (Calculated) [facility] LIPIDS VLDL 27 06/11 [facility] LIPIDS Chol 133 <=199 06/11 [facility] mg/dL [facility] LIPIDS Trig 133 <=149 06/11 [facility] mg/dL /2015 [facility] LIPIDS CHD Risk 4.29 3.90 - 06/11 [facility] 5.80 [facility] LIPIDS HDL 31 >=61 mg/dL 06/11 [facility] URINE AND UA <=1.0 0.1 - 1.0 06/11 [facility] STOOL Urobilinogen mg/dL /2015 [facility] URINE AND UA Ketones Negative Negative 06/11 [facility] STOOL mg/dL mg/dL /2015 [facility] URINE AND UA Glucose 300 mg/dL Negative 06/11 [facility] STOOL mg/dL /2015 [facility] URINE AND UA Protein >=300 Negative 06/11 [facility] STOOL mg/dL mg/dL /2015 [facility] URINE AND UA pH 6.0 5.0 - 8.0 06/11 [facility] STOOL /2015 Medical [place] URINE AND UA Nitrite Negative Negative 06/11 [facility] STOOL (06/10/16 8:08 PM) /2016 [facility] URINE AND UA Blood Trace Negative 06/11 [facility] STOOL *ABN* Medical (06/10/16 8:08 PM) Cente r URINE AND UA Bili Negative Negative 06/11 [facility] STOOL *NA* Medical (06/10/16 8:08 PM) Cente r URINE AND UA Mucus Few /LPF None Seen 06/11 [facility] STOOL /LPF /2015 [facility] URINE AND UA RBC 4 0 - 2 06/11 [facility] URINE AND UA Sq Epi Few /LPF Few /LPF 06/11 [facility] URINE AND UA WBC 5 0 - 5 06/11 [facility] URINE AND UA Leuk Est Small Negative 06/11 [facility] *ABN* /2015 [facility] (06/10/16 8:08 PM) Cente r URINE AND UA Hyal Cast 1 0 - 2 06/11 [facility] URINE AND UA Spec Grav 1.009 <=1.030 06/11 [facility] URINE AND UA Color Yellow Yellow 06/11 [facility] *NA* /2015 [facility] (06/10/16 8:08 PM) Cente r URINE AND UA Turbidity Clear Clear 06/11 [facility] (06/10/16 8:08 PM) [facility] URINE CHEM U Preg Negative Negative 06/11 [facility] (06/10/16 8:08 PM) [facility] URINE CHEM U Protein 375.4 06/11 [facility] URINE CHEM U Prot/Creat 5.4 06/11 [facility] URINE CHEM U Creatinine 69.80 06/11 [facility] [address] [place] [address] CARDIAC BNP 1135 <=100 06/10 [facility] ENZYMES pg/mL [facility] CARDIAC Troponin-I <0.02 0.00 - 06/10 [facility] ENZYMES 0.40 [facility] CHEM PANEL Lactic Acid 0.9 0.5 - 2.2 06/26 [place] /2014 [facility] TOXICOLOGY Valproic 10 50 - 100 06/26 [facility] Acid Lvl [facility] ENDOCRINOL hCG Tot 1 06/26 <sup>3</sup>I [...] Albumin Lvl 3.2 3.5 - 5.0 06/[address] CHEM PANEL Total 6.6 6.4 - 8.4 06/[address] CHEM PANEL Bili Total 0.6 0.2 - 1.3 06/[address] CHEM PANEL Alk Phos 59 39 - 136 06/[address] CHEM PANEL AST 11 0 - 37 06/[address] CHEM PANEL ALT 17 0 - 65 06/[address] CHEM PANEL eGFR 99 06/26 <sup>1</sup>R [facility] Comment: The [place] eGFR is calculated using the CKD-EPI formula. [...] values reflect the clinical guidelines
of the [place] [employer]. CHEM PANEL Potassium 3.4 3.5 - 5.1 06/26 [facility] CHEM PANEL BUN 11 7 - 22 06/26 [facility]2014 [facility] CHEM PANEL Creatinine 0.8 0.5 - 1.4 06/26 [facility] CHEM PANEL Sodium Lvl 134 135 - 145 06/[address] CHEM PANEL Chloride Lvl 94 95 - 109 06/26 [facility] CHEM PANEL Calcium Lvl 9.1 8.5 - 10.5 06/26 [facility] CHEM PANEL CO2 24 24 - 32 06/[address] CHEM PANEL A/G Ratio 0.9 0.7 - 1.6 06/26 [facility]2014 [facility] CHEM PANEL Globulin 3.4 2.0 - 4.0 06/[address] CHEM PANEL B/C Ratio 14 6 - 25 06/[address] CHEM PANEL AGAP 19.4 10.0 - 06/26 [facility] 20.0 [facility] CHEM PANEL Lipase Lvl 81 73 - 393 06/26 [facility]2014 [facility] HEMATOLOGY Large Plt Slight 06/26 [facility]2014 [facility] HEMATOLOGY Basophils # 0.0 0.0 - 0.2 06/26 [facility] HEMATOLOGY Anisocyte 1+ None Seen 06/26 [facility] *ABN* [facility] (06/26/14 5:21 AM) [place] HEMATOLOGY Monocytes # 0.6 0.0 - 0.8 06/26 [facility] HEMATOLOGY Eosinophils 0.1 0.0 - 0.5 06/26 [facility] s # [facility] HEMATOLOGY Lymphocytes 2.5 1.0 - 5.5 06/26 [place] # /2014 [facility] HEMATOLOGY Segs 63.3 45.0 - 06/26 [place] 75.0 /2014 [facility] HEMATOLOGY Segs-Bands # 5.6 1.5 - 8.1 06/26 Baljinder as /2014 [facility] HEMATOLOGY Basophils 0.0 0.0 - 1.0 06/26 [facility] HEMATOLOGY Eosinophils 0.9 0.0 - 4.0 06/26 s /2014 [facility] HEMATOLOGY Monocytes 7.0 2.0 - 12.0 06/26 [facility] HEMATOLOGY Lymphocytes 28.8 20.0 - 06/26 [place] 40.0 /2014 [facility] HEMATOLOGY WBC 8.8 3.7 - 10.4 06/26 [facility] HEMATOLOGY RBC 5.19 4.20 - 06/26 5.40 /2014 [facility] HEMATOLOGY Hgb 14.4 12.0 - 06/26 16.0 /2014 [facility] HEMATOLOGY Hct 43.1 36.0 - 06/26 48.0 /2014 [facility] HEMATOLOGY MCV 83.1 80.0 - 06/26 98.0 /2014 [facility] HEMATOLOGY MCH 27.8 27.0 - 06/26 31.0 /2014 [facility] HEMATOLOGY RDW 13.1 11.5 - 06/26 14.5 /2014 [facility] HEMATOLOGY MCHC 33.5 32.0 - 06/26 36.0 /2014 [facility] HEMATOLOGY Platelet 201 133 - 450 06/26 [facility] HEMATOLOGY MPV 10.4 7.4 - 10.4 06/26 [facility] URINALYSIS UA [place] Yeast Occasional None Seen 04/15 ABN /HPF [facility] URINALYSIS UA Mucus Few /LPF None Seen 04/15 Normal [facility] URINALYSIS UA Sq Epi Moderate Few 04/15 ABN /LPF /2012 [place] URINALYSIS Micro? Performed 04/15 Normal (04/14/2013 23:48:55) /2012 So [facility] URINALYSIS UA WBC 0-2 /HPF None Seen 04/15 Normal [facility] URINALYSIS UA Bacteria Occasional None Seen 04/15 Normal /HPF [facility] URINALYSIS UA Glucose 500 mg/dL Negative 04/15 ABN [facility] URINALYSIS UA Bili Negative Negative 04/15 MH *NA* [facility] (04/14/2013 23:48:55) URINALYSIS UA Ketones Trace Negative 04/15 ABN *ABN* [facility] (04/14/2013 23:48:55) URINALYSIS UA Blood Negative Negative 04/15 Normal (04/14/2013 23:48:55) [facility] URINALYSIS UA 0.2 0.1 - 1.0 04/15 Normal Urobilinogen [facility] URINALYSIS UA Nitrite Negative Negative 04/15 Normal (04/14/2013 23:48:55) [facility] URINALYSIS UA Leuk Est Negative Negative 04/15 Normal (04/14/2013 23:48:55) [facility] URINALYSIS UA Turbidity Clear Clear 04/15 Normal (04/14/2013 23:48:55) [facility] URINALYSIS UA Color Yellow Yellow 04/15 *NA* [facility] (04/14/2013 23:48:55) URINALYSIS UA pH 7.0 5.0 - 8.0 04/15 Normal [facility] URINALYSIS UA Spec Grav 1.025 <=1.030 04/15 Normal [facility] URINALYSIS UA Protein Trace Negative 04/15 ABN *ABN* [facility] (04/14/2013 23:48:55) CHEMISTRY S Preg Negative Negative 04/15 *NA* [facility] (04/14/2013 23:28:00) CHEMISTRY Lipase Lvl 233 73 - 393 04/15 Normal [facility] CHEMISTRY Globulin 4.1 2.0 - 4.0 04/15 HI [facility] CHEMISTRY AGAP 10.5 10.0 - 04/15 Normal 20.0 [facility] CHEMISTRY B/C Ratio 6 6 - 25 04/15 Normal [facility] CHEMISTRY A/G Ratio 0.7 0.7 - 1.6 04/15 Normal [facility] CHEMISTRY eGFR 130 04/15 <sup>1</sup>R esult [facility] Comment: The eGFR is calculated using [...] Lvl 2.9 3.5 - 5.0 04/15 LOW [facility] CHEMISTRY ASPARTATE 20 0 - 37 04/15 Normal TRANSAMINASE [facility] CHEMISTRY Bili Total 0.5 0.2 - 1.3 04/15 Normal [facility] CHEMISTRY Alk Phos 89 39 - 136 04/15 Normal [facility] CHEMISTRY ALANINE 11 0 - 65 04/15 AMINOTRANS [facility] RAS CHEMISTRY Creatinine 0.5 0.5 - 1.4 04/15 Normal [facility] CHEMISTRY BUN 3 7 - 22 04/15 LOW [facility] CHEMISTRY Glucose Lvl 255 70 - 99 04/15 [place] <sup>2</sup>I nterpretive [facility] Data: Adult reference range values reflect the clinical guidelines
of the [place] [employer]. CHEMISTRY Total 7.0 6.4 - 8.4 04/15 Normal Protein [facility] CHEMISTRY Calcium Lvl 8.7 8.5 - 10.5 04/15 Normal [facility] CHEMISTRY CO2 29 24 - 32 04/15 Normal [facility] CHEMISTRY Chloride Lvl 104 95 - 109 04/15 Normal [facility] CHEMISTRY Potassium 3.5 3.5 - 5.1 04/15 Normal l [facility] CHEMISTRY Sodium Lvl 140 135 - 145 04/15 Normal [facility] HEMATOLOGY PROTIME 12.1 12.0 - 04/15 Normal 14.7 [facility] HEMATOLOGY aPTT 39.0 22.9 - 04/15 [place] <sup>4</sup>I 35.8 nterpretive [facility] Data: Heparin Therapeutic Range: 57 - 92 Seconds HEMATOLOGY INR 0.90 0.85 - 04/15 Normal <sup>3</sup>I MH 1.17 nterpretive [facility] Data: RECOMMENDED RANGES FOR PROTIME INR:
2.0-3.0 for most medical and surgical thromboemboli c states.
2.5-3.5 for artificial heart valves and recurrent embolism.<br/ >
INR SHOULD BE USED ONLY FOR PATIENTS ON STABLE ANTICOAGULANT THERAPY. HEMATOLOGY MCH 29.4 27.0 - 04/15 Normal MH 31.0 /2012 [facility] HEMATOLOGY MCV 86.1 81.0 - 04/15 Normal MH 99.0 /2012 [facility] HEMATOLOGY Hct 29.4 36.0 - 04/15 LOW MH 48.0 /2012 [facility] HEMATOLOGY RDW 14.0 11.5 - 04/15 Normal MH 14.5 [facility] HEMATOLOGY WBC X 10x3 6.2 3.7 - 10.4 04/15 Normal /2012 [facility] HEMATOLOGY Platelet 178 133 - 450 04/15 Normal [facility] HEMATOLOGY MCHC 34.1 32.0 - 04/15 Normal 36.0 [facility] HEMATOLOGY RBC X 10x6 3.41 4.20 - 04/15 LOW MH 5.40 [facility] HEMATOLOGY Hgb 10.0 12.0 - 04/15 LOW 16.0 [facility] HEMATOLOGY MPV 10.1 7.4 - 10.4 04/15 Normal [facility] HEMATOLOGY Segs-Bands # 4.4 1.5 - 8.1 04/15 Normal [facility] HEMATOLOGY Basophils 0.7 0.0 - 1.0 04/15 Normal [facility] HEMATOLOGY Segs 70.7 45.0 - 04/15 Normal MH 75.0 [facility] HEMATOLOGY Monocytes # 0.3 0.0 - 0.8 04/15 Normal [facility] HEMATOLOGY Lymphocytes 1.2 1.0 - 5.5 04/15 Normal MH /2012 [facility] HEMATOLOGY Monocytes 4.5 2.0 - 12.0 04/15 Normal [facility] HEMATOLOGY Eosinophils 4.1 0.0 - 4.0 04/15 [place] MH /2012 [facility] HEMATOLOGY Lymphocytes 20.0 20.0 - 04/15 Normal 40.0 [facility] HEMATOLOGY Basophils # 0.0 0.0 - 0.2 04/15 Normal [facility] HEMATOLOGY Eosinophils 0.3 0.0 - 0.5 04/15 Normal MH # /2012 [facility] BEDSIDE Gluc POC 260 70 - 99 03/15 HI <sup>1</sup>I GLUCOSE [place] /2011 nterpretive [facility] TESTING Data: Upper Reportable Limit: 200 mg/dL. BEDSIDE Comment1 Notify 03/15 NA GLUCOSE RN/MD [facility] TESTING URINALYSIS UA Protein Trace Negative 03/14 [facility] *ABN* /2011 [facility] (03/14/2012 18:40:00) URINALYSIS UA pH 6.0 5.0 - 8.0 03/14 Normal /2011 [facility] URINALYSIS UA Ketones >=80 mg/dL Negative 03/14 NA *NA* /2011 [facility] (03/14/2012 18:40:00) URINALYSIS UA Glucose >=1000 mg/dL Negative 03/14 [facility] *ABN* /2011 [facility] (03/14/2012 18:40:00) URINALYSIS UA Blood Negative Negative 03/14 Normal (03/14/2012 18:40:00) [facility] URINALYSIS UA Nitrite Negative Negative 03/14 Normal (03/14/2012 18:40:00) [facility] URINALYSIS UA 0.2 0.1 - 1.0 03/14 Normal Urobilinogen /2011 [facility] URINALYSIS UA Leuk Est Negative Negative 03/14 Normal (03/14/2012 18:40:00) [facility] URINALYSIS UA Bili Negative Negative 03/14 [facility] *NA* /2011 [facility] (03/14/2012 18:40:00) URINALYSIS UA Turbidity Clear Clear 03/14 Normal (03/14/2012 18:40:00) [facility] URINALYSIS UA Color Yellow Yellow 03/14 NA *NA* /2011 [facility] (03/14/2012 18:40:00) URINALYSIS UA Spec Grav >=1.030 <=1.030 03/14 [facility] *ABN* [facility] (03/14/2012 18:40:00) URINALYSIS UA Sq Epi Occasional /LPF Few 03/14 Normal (03/14/2012 18:40:00) [facility] URINALYSIS UA WBC 3-5 /HPF None Seen 03/14 Normal (03/14/2012 18:40:00) So [facility] URINALYSIS UA Bacteria Occasional /HPF None Seen 03/14 Normal (03/14/2012 18:40:00) So [facility] CHEMISTRY S Preg Negative Negative 03/14 NA MH *NA* /2011 [facility] (03/14/2012 17:50:00) CHEMISTRY Lipase Lvl 45 73 - 393 03/14 LOW /2011 [facility] CHEMISTRY A/G Ratio 1.2 0.7 - 1.6 03/14 Normal [facility] CHEMISTRY Globulin 3.8 2.0 - 4.0 03/14 Normal [facility] CHEMISTRY B/C Ratio 21 6 - 25 03/14 Normal [facility] CHEMISTRY AGAP 16.8 10.0 - 03/14 Normal MH 20.0 [facility] CHEMISTRY Bili Total 1.1 0.2 - 1.3 03/14 Normal [facility] CHEMISTRY Total 8.2 6.4 - 8.4 03/14 Normal Protein [facility] CHEMISTRY Potassium 3.8 3.5 - 5.1 03/14 Normal [facility] CHEMISTRY Creatinine 0.7 0.5 - 1.4 03/14 Normal Lvl [facility] CHEMISTRY Sodium Lvl 139 135 - 145 03/14 Normal [facility] CHEMISTRY Chloride Lvl 99 95 - 109 03/14 Normal [facility] CHEMISTRY CO2 27 24 - 32 03/14 Normal [facility] CHEMISTRY Glucose Lvl 301 70 - 99 03/14 [place] <sup>2</sup>I nterpretive [facility] Data: Adult reference range values reflect the clinical guidelines
of the [place] [employer]. CHEMISTRY BUN 15 7 - 22 03/14 Normal [facility] CHEMISTRY ALT 24 0 - 65 03/14 Normal [facility] CHEMISTRY AST 20 0 - 37 03/14 Normal [facility] CHEMISTRY Alk Phos 67 39 - 136 03/14 Normal [facility] CHEMISTRY Albumin Lvl 4.4 3.5 - 5.0 03/14 Normal [facility] CHEMISTRY Calcium Lvl 9.9 8.5 - 10.5 03/14 Normal [facility] HEMATOLOGY MPV 11.8 7.4 - 10.4 03/14 HI /2011 [facility] HEMATOLOGY MCHC 35.9 32.0 - 03/14 Normal MH 36.0 /2011 [facility] HEMATOLOGY MCH 31.2 27.0 - 09/24 HI MH 31.0 /2011 [facility] HEMATOLOGY Platelet 189 133 - 450 03/14 Normal MH /2011 [facility] HEMATOLOGY RDW 13.1 11.5 - 03/14 Normal MH 14.5 /2011 [facility] HEMATOLOGY Hct 40.7 36.0 - 03/14 Normal MH 48.0 /2011 [facility] HEMATOLOGY Hgb 14.6 12.0 - 03/14 Normal MH 16.0 /2011 [facility] HEMATOLOGY MCV 87.0 81.0 - 03/14 Normal 99.0 /2011 [facility] HEMATOLOGY WBC 11.7 3.7 - 10.4 09 HI MH /2011 [facility] HEMATOLOGY RBC 4.68 4.20 - 03/14 Normal MH 5.40 /2011 [facility] HEMATOLOGY Basophils # 0.0 0.0 - 0.2 03/14 Normal MH /2011 [facility] HEMATOLOGY Basophils 0.2 0.0 - 1.0 03/14 Normal MH /2011 [facility] HEMATOLOGY Eosinophils 0.0 0.0 - 0.5 03/14 Normal # /2011 [facility] HEMATOLOGY Monocytes # 0.4 0.0 - 0.8 03/14 Normal MH /2011 [facility] HEMATOLOGY Segs-Bands # 10.6 1.5 - 8.1 03/14 HI MH /2011 [facility] HEMATOLOGY Lymphocytes 0.7 1.0 - 5.5 03/14 LOW MH # /2011 [facility] HEMATOLOGY Monocytes 3.4 2.0 - 12.0 03/14 Normal MH /2011 [facility] HEMATOLOGY Plt Morph Normal 03/14 Normal (03/14/2012 17:50:00) /2011 [facility] HEMATOLOGY Lymphocytes 6.0 20.0 - 03/14 LOW 40.0 /2011 [facility] HEMATOLOGY Eosinophils 0.0 0.0 - 4.0 03/14 Normal MH /2011 [facility] HEMATOLOGY Segs 90.4 45.0 - 03/14 HI MH 75.0 /2011 [facility] HEMATOLOGY RBC Morph Normal 03/14 Normal (03/14/2012 17:50:00) /2011 [facility] BEDSIDE Gluc POC 167 70 - 99 11/29 HI <sup>1</sup>I [facility] GLUCOSE Lifscn /2011 nterpretive Medical TESTING Data: Center Upper Reportable Limit: 200 mg/dL. BEDSIDE Comment1 Notify 11/29 NA [facility] GLUCOSE RN/ /2011 Medical TESTING Center BEDSIDE Comment2 Sliding 11/29 NA [facility] GLUCOSE Scale /2011 Medical TESTING Center BEDSIDE Gluc POC 189 70 - 99 11/29 HI <sup>2</sup>I [facility] GLUCOSE Lif[place]n /2011 nterpretive Medical TESTING Data: Center Upper Reportable Limit: 200 mg/dL. BEDSIDE Comment1 Notify 11/29 NA [facility] GLUCOSE TABATHA/ /2011 Medical TESTING Center BEDSIDE Comment2 Sliding 11/29 NA [facility] GLUCOSE Scale /2011 Medical TESTING Center BEDSIDE Comment2 Sliding 11/29 NA [facility] GLUCOSE Scale /2011 Medical TESTING Center BEDSIDE Gluc POC 110 70 - 99 11/29 HI <sup>3</sup>I [facility] GLUCOSE [place]n /2011 nterpretive Medical TESTING Data: Center Upper Reportable Limit: 200 mg/dL. BEDSIDE Comment1 Notify 11/29 NA [facility] GLUCOSE TABATHA/ /2011 Medical TESTING Center CHEMISTRY U Preg Negative Negative 11/28 Normal [facility] (11/28/2011 19:00:00) Ga dical Center URINALYSIS Micro? Performed 11/28 Normal [facility] (11/28/2011 19:00:00) Ga dical Center URINALYSIS UA Sq Epi Occasional /LPF Few 11/28 Normal [facility] (11/28/2011 19:00:00) Ga dical Center URINALYSIS UA RBC None Seen 0 - 2 11/28 Normal [facility] (11/28/2011 19:00:00) Ga dical Center URINALYSIS UA WBC Occasional 0 - 5 11/28 NA [facility] Center URINALYSIS UA Protein Negative mg/dL Negative 11/28 Normal [facility] (11/28/2011 19:00:00) Ga dical Center URINALYSIS UA pH 7.0 5.0 - 8.0 11/28 Normal [facility] Center URINALYSIS UA Spec Grav 1.020 <=1.030 11/28 Normal Medical Center URINALYSIS UA Turbidity Clear Clear 11/28 Normal [facility] (11/28/2011 19:00:00) Ga dical Center URINALYSIS UA Color Yellow Yellow 11/28 NA [facility] *NA* /2011 Medical (11/28/2011 19:00:00) Ce nter URINALYSIS UA 0.2 0.1 - 1.0 11/28 Normal [facility] Urobilinogen /2011 Medical Center URINALYSIS UA Blood Negative Negative 11/28 Normal [facility] (11/28/2011 19:00:00) Ga dical Center URINALYSIS UA Bili Negative Negative 11/28 NA [place] *NA* Medical (11/28/2011 19:00:00) Ce nter URINALYSIS UA Ketones >=80 mg/dL Negative 11/28 ABN [facility]jinder as *ABN* Medical (11/28/2011 19:00:00) Ce nter URINALYSIS UA Glucose >=1000 mg/dL Negative 11/28 ABN [facility] [place] *ABN* Medical (11/28/2011 19:00:00) Ce nter URINALYSIS UA Nitrite Negative Negative 11/28 Normal [facility] (11/28/2011 19:00:00) Ga dical Center URINALYSIS UA Leuk Est Negative Negative 11[place]28 [place] (11/28/2011 19:00:00) Ga dical Center CHEMISTRY pO2 [place] 60 20 - 49 11/27 [facility] Medical Center CHEMISTRY pCO2 [place] 41 38 - 52 11/27 Normal Medical Center CHEMISTRY pH [place] 7.45 7.28 - 11/27 [facility] 7.42 Medical Center CHEMISTRY Temp [place] 37.0 11/27 NA Medical Center CHEMISTRY O2 Sat [place] 92.0 40.0 - 11/27 [facility] 70.0 Medical Center CHEMISTRY BE [place] 4 -2-2 - 2 11/27 [facility] Medical Center CHEMISTRY HCO3 [place] 28.5 22.0 - 11/27 [facility] [place] 26.0 Medical Center CHEMISTRY Lactic Acid 1.6 0.5 - 2.2 11/27 Normal [facility] Medical Center CHEMISTRY Lipase Lvl 125 73 - 393 11/27 Normal Medical Center CHEMISTRY Albumin Lvl 4.2 3.5 - 5.0 11/27 Normal Medical Center CHEMISTRY CO2 23 24 - 32 11/27 LOW Medical Center CHEMISTRY Chloride Lvl 98 95 - 109 11/27 Normal Medical Center CHEMISTRY Potassium 3.8 3.5 - 5.1 11/27 Normal [facility] Medical Center CHEMISTRY Sodium Lvl 138 135 - 145 11/27 Normal Medical Center CHEMISTRY Creatinine 0.7 0.5 - 1.4 11/27 Normal [facility] Lvl Medical Center CHEMISTRY BUN 9 7 - 22 11/27 Normal Medical Center CHEMISTRY Glucose Lvl 269 70 - 99 11/27 HI <sup>4</sup>I T ex nterpretive Medical Data: Adult Center reference range values reflect the clinical guidelines of the [place] [employer]. CHEMISTRY B/C Ratio 13 6 - 25 11/27 Normal [facility] CHEMISTRY AGAP 20.8 10.0 - 11/27 HI [place] 20.0 Medical Center CHEMISTRY Calcium Lvl 9.3 8.5 - 10.5 11/27 Normal [facility] Center CHEMISTRY Total 6.7 6.4 - 8.4 11/27 Normal [facility] Protein [facility] Center CHEMISTRY A/G Ratio 1.7 0.7 - 1.6 11/27 [facility] CHEMISTRY Globulin 2.5 2.0 - 4.0 11/27 Normal [facility] CHEMISTRY AST 18 0 - 37 11/27 Normal [facility] CHEMISTRY Alk Phos 62 39 - 136 11/27 Normal [facility] CHEMISTRY ALT 32 0 - 65 11/27 Normal [facility] CHEMISTRY Bili Total 0.7 0.2 - 1.3 11/27 Normal [facility] HEMATOLOGY Anisocyte 1+ None Seen 11/27 [facility] ABN Medical (11/28/2011 15:00:00) Ce nter HEMATOLOGY Monocytes # 0.1 0.0 - 0.8 11/27 [place] [facility] HEMATOLOGY Eosinophils 0.0 0.0 - 0.5 11/27 Normal [facility] Center HEMATOLOGY Basophils # 0.0 0.0 - 0.2 11/27 Normal [facility] Center HEMATOLOGY Neut Vac Slight None Seen 11/27 [facility] ABN Medical (11/28/2011 15:00:00) Ce nter HEMATOLOGY Large Plt Slight None [facility]en [facility] 15:00:00) Ce nter HEMATOLOGY Segs-Bands # 5.7 1.5 - 8.1 11/27 Normal [facility] HEMATOLOGY Lymphocytes 0.8 1.0 - 5.5 11/27 [place] # /2011 Medical Center HEMATOLOGY Eosinophils 0.2 0.0 - 4.0 11/27 [place] /2011 [facility] Center HEMATOLOGY Basophils 0.0 0.0 - 1.0 11/27 Normal /2011 [facility] HEMATOLOGY Monocytes 1.9 2.0 - 12.0 06 LOW [facility] HEMATOLOGY Segs 86.2 45.0 - 11/27 [facility] [place] 75.0 /2011 Medical [place] HEMATOLOGY Lymphocytes 11.7 20.0 - 06 LOW [place] 40.0 /2011 [facility] HEMATOLOGY MPV 10.8 7.4 - 10.4 11/27 [facility] HEMATOLOGY Platelet 161 133 - 450 11/27 [facility] HEMATOLOGY MCHC 35.6 32.0 - 11/27 [facility] [place] 36.0 /2011 [facility] HEMATOLOGY RDW 12.4 11.5 - 11/27 Normal [place] 14.5 /2011 [facility] HEMATOLOGY MCH 30.7 27.0 - 11/27 Normal [place] 31.0 /2011 [facility] HEMATOLOGY MCV 86.1 81.0 - 11/27 Normal [place] 99.0 /2011 [facility] HEMATOLOGY Hct 33.6 36.0 - 11/27 [facility] [place] 48.0 /2011 [facility] HEMATOLOGY Hgb 12.0 12.0 - 11/27 [facility] [place] 16.0 /2011 [facility] HEMATOLOGY RBC 3.90 4.20 - 11/27 [facility] [place] 5.40 /2011 [facility] HEMATOLOGY WBC 6.6 3.7 - 10.4 11/27 Normal [facility] CHEMISTRY UDS Note See Note 5 [...] CHEMISTRY U Phencyc Negative Negative 11/27 NA [facility] Scr *NA* Medical (11/28/2011 14:51:00) Ce nter CHEMISTRY U Kelly Scr Negative Negative 11/27 [facility] *NA* Medical (11/28/2011 14:51:00) Ce nter CHEMISTRY U Amph Scr Negative Negative 11/27 [facility] *NA* Medical (11/28/2011 14:51:00) Ce nter CHEMISTRY U Opiate Scr Negative Negative 11/[address] [facility] *NA* Medical (11/28/2011 14:51:00) Ce nter CHEMISTRY U Cocaine Negative Negative 11/27 [facility] Scr *NA* Medical (11/28/2011 14:51:00) Ce nter CHEMISTRY U Cannab Scr Negative Negative 11/[address] [facility] s *NA* Medical (11/28/2011 14:51:00) Ce nter CHEMISTRY U Benzodia Negative Negative 11/27 [facility] Scr *NA Medical (11/28/2011 14:51:00) Ce nter BEDSIDE Comment1 Notify 09/17 NA [facility] GLUCOSE RN/MD /2011 Medical TESTING Center BEDSIDE Gluc POC 328 70 - 99 09/17 HI <sup>1</sup>I [facility] GLUCOSE Lif[place]n /2011 nterpretive Medical TESTING Data: Center Upper Reportable Limit: 200 mg/dL. CHEMISTRY U Preg Negative Negative 09/17 Normal [facility] (09/18/2011 10:30:00) Ga dical Center URINALYSIS UA WBC None Seen None Seen 09/17 Normal [facility] (09/18/2011 10:30:00) Ga dical Center URINALYSIS UA RBC None Seen 0 - 2 09/17 Normal [facility] (09/18/2011 10:30:00) Ga dical Center URINALYSIS UA Bacteria None Seen None Seen 09/17 [place] (09/18/2011 10:30:00) Ga dical Center URINALYSIS UA Amorph Few /HPF None Seen 09/17 ABN [facility] [place] *ABN* Medical (09/18/2011 10:30:00) Ce nter URINALYSIS Micro? Performed 09/17 Normal [facility] (09/18/2011 10:30:00) Ga dical Center URINALYSIS UA Sq Epi Rare /LPF Few 09/17 Normal [facility] (09/18/2011 10:30:00) Ga dical Center URINALYSIS UA Ketones 15 mg/dL Negative 09/17 ABN [facility] *ABN* Medical (09/18/2011 10:30:00) Ce nter URINALYSIS UA Glucose >=1000 mg/dL Negative 09/17 ABN [place] * Medical (09/18/2011 10:30:00) Ce nter URINALYSIS UA Protein Trace Negative 09/17 ABN [facility] Medical (09/18/2011 10:30:00) Ce nter URINALYSIS UA 0.2 0.1 - 1.0 09/17 Normal [facility] Urobilinogen /2011 [facility] Center URINALYSIS UA Blood Negative Negative 09/17 Normal [facility] (09/18/2011 10:30:00) Ga dical Center URINALYSIS UA Bili Negative Negative 09[facility]17 [facility]09/18/2011 10:30:00) Ce nter URINALYSIS UA Leuk Est Negative Negative 09/17 [place] (09/18/2011 10:30:00) Ga dical Center URINALYSIS UA Nitrite Negative Negative 09/17 Normal [facility] (09/18/2011 10:30:00) Ga dical Center URINALYSIS UA pH 7.5 5.0 - 8.0 09/17 Normal Medical Center URINALYSIS UA Spec Grav 1.010 <=1.030 09/17 Normal Medical Center URINALYSIS UA Turbidity Slight Cloudy Clear 09/17 Normal [facility] (09/18/2011 10:30:00) Ga dical Center URINALYSIS UA Color Yellow Yellow 09/17 NA *NA* Medical (09/18/2011 10:30:00) Ce nter CHEMISTRY Phosphorus 4.4 2.5 - 4.5 09/17 Normal Medical Center CHEMISTRY Magnesium 1.6 1.8 - 2.4 09/17 LOW [facility] BEDSIDE Gluc POC >400 70 - 99 09/17 CRIT <sup>2</sup>I [facility] GLUCOSE Lif[place]n /2011 nterpretive Medical TESTING [...] CO2 30 24 - 32 09/17 Normal [facility] CHEMISTRY Potassium 3.5 3.5 - 5.1 09/17 Normal [facility] CHEMISTRY Sodium Lvl 133 135 - 145 09/17 LOW Medical Center CHEMISTRY Creatinine 1.3 0.5 - 1.4 09/17 Normal [facility] CHEMISTRY Glucose Lvl 383 70 - 99 09/17 [place] <sup>3</sup>I [place] ex nterpretive Medical Data: Adult Center reference range values reflect the clinical guidelines of the [place] [employer]. CHEMISTRY BUN 17 7 - 22 09/17 Normal [facility] Center CHEMISTRY AGAP 14.5 10.0 - 09/17 [...] Monocytes 2.9 2.0 - 12.0 09/17 Normal [facility] Center HEMATOLOGY Eosinophils 0.2 0.0 - 4.0 09/17 [place] [facility] [place] HEMATOLOGY Basophils 0.0 0.0 - 1.0 09/17 Normal [facility] Center HEMATOLOGY Eosinophils 0.0 0.0 - 0.5 09/17 [place] # [facility] HEMATOLOGY Monocytes # 0.3 0.0 - 0.8 09/17 [place] [facility] HEMATOLOGY Segs 92.0 45.0 - 09/17 HI [place] 75.0 /2011 Medical Center HEMATOLOGY Lymphocytes 4.9 20.0 - 09/17 LOW [place] 40.0 Medical Center HEMATOLOGY Spherocyte Rare None Seen 09/17 [facility] *ABN Medical (09/18/2011 08:52:00) Ce nter HEMATOLOGY Large Plt Slight None Seen 09/17 [facility] *ABN Medical (09/18/2011 08:52:00) Ce nter HEMATOLOGY Microcyte 1+ None Seen 09/17 [facility] *ABN* Medical (09/18/2011 08:52:00) Ce nter HEMATOLOGY Schistocyte Rare 09/17 NA Medical Center HEMATOLOGY Macrocyte 1+ None Seen 09/17 [facility] *ABN* Medical (09/18/2011 08:52:00) Ce nter HEMATOLOGY Lymphocytes 0.6 1.0 - 5.5 09/17 [place] # /2011 Medical Center HEMATOLOGY Segs-Bands # 10.8 1.5 - 8.1 09/17 [place] Baljinder as /2011 Medical Center HEMATOLOGY Basophils # 0.0 0.0 - 0.2 09/17 Normal [facility] /2011 [facility] HEMATOLOGY Anisocyte 1+ None Seen 09/17 ABN [facility] *ABN* Medical (09/18/2011 08:52:00) Ce nter IMMUNOLOGY [facility] 1/2 Negative Negative 09/17 NA [facility] s Ab *NA* Medical (09/18/2011 08:52:00) Ce nter BEDSIDE Gluc POC 215 70 - 99 09/08 [place] <sup>1</sup>I [facility] TESTING Data: Center Upper Reportable Limit: 200 mg/dL. BEDSIDE Comment1 Notify 09/08 [facility] GLUCOSE RN/ Medical TESTING Center BEDSIDE Comment1 Notify 09/08 [facility] GLUCOSE RN/ /2012 Medical TESTING Center BEDSIDE Gluc POC 91 65 - 110 09/08 Normal <sup>2</sup>I [facility] [place] [facility] TESTING Data: Center Upper Reportable Limit: 200 mg/dL. BEDSIDE Comment1 Notify 09/08 [facility] GLUCOSE RN/MD /2011 [facility] TESTING Center BEDSIDE Gluc POC 148 65 - 110 09/08 [place] <sup>3</sup>I [facility]SE [facility] [place] [facility] TESTING Data: Center Upper Reportable Limit: 200 mg/dL. CHEMISTRY Sodium Lvl 143 135 - 145 09/07 Normal [facility] CHEMISTRY Glucose Lvl 105 09/07 NA <sup>4</sup>I [place] nterpretive Medical Data: Center Reference Ranges : 0 - 7 days : 41 - 90 mg/dL 7 days - 150 yrs : 70 - 99 mg/dL (fasting), based on the clinical recommendatio ns of the [place] [employer]. CHEMISTRY CO2 29 24 - 32 09/07 Normal [facility] CHEMISTRY Chloride Lvl 103 95 - 109 09/07 Normal [facility] CHEMISTRY BUN 10 7 - 22 09/07 Normal [facility] Center CHEMISTRY Potassium 3.8 3.5 - 5.1 09/07 Normal [place] Lvl Medical Center CHEMISTRY Creatinine 0.6 0.5 - 1.4 09/07 Normal [place] Lvl Medical Center CHEMISTRY Calcium Lvl 8.5 8.5 - 10.5 09/07 Normal a s Medical Center CHEMISTRY AGAP 14.8 10.0 [...] # 0.0 0.0 - 0.2 09/07 Normal a Medical Center HEMATOLOGY Segs-Bands # 3.8 1.5 - 8.1 09/07 Normal [facility] HEMATOLOGY Lymphocytes 2.0 1.0 - 5.5 09/07 [place] # [facility] [place] HEMATOLOGY Basophils 0.5 0.0 - 1.0 09/07 Normal Medical Center HEMATOLOGY Eosinophils 0.7 0.0 - 4.0 09/07 Normal a Medical Center HEMATOLOGY Monocytes 6.2 2.0 - [...] Creatinine 0.5 0.5 - 1.4 09/06 Normal [facility] Center CHEMISTRY BUN 10 7 - 22 09/06 Normal Medical Center CHEMISTRY Potassium 4.1 3.5 - 5.1 09/06 Normal [place] [facility] CHEMISTRY Sodium Lvl 141 135 - 145 09/06 Normal Medical Center CHEMISTRY Glucose Lvl 83 09/06 NA <sup>5</sup>I T ex nterpretive Medical Data: Center Reference Ranges : 0 - 7 days : 41 - 90 mg/dL 7 days - 150 yrs : 70 - 99 mg/dL (fasting), based on the clinical recommendatio ns of the [place] [employer]. CHEMISTRY Calcium Lvl 8.4 8.5 - 10.5 09/06 LOW a [facility] Center CHEMISTRY AGAP 14.1 10.0 - 09/06 [...] Center HEMATOLOGY MPV 7.2 7.4 - 10.4 03/19 LOW Medical Center HEMATOLOGY INR 0.95 0.85 - 09/06 Normal <sup>7</sup>I [place] 1.17 nterpretive Medical Data: Center RECOMMENDED RANGES FOR PROTIME INR: 2.0-3.0 for most medical and surgical thromboemboli c states. 2.5-3.5 for artificial heart valves and recurrent embolism. INR SHOULD BE USED ONLY FOR PATIENTS ON STABLE ANTICOAGULANT THERAPY. HEMATOLOGY PT 12.7 12.0 - 09/06 Normal [place] 14.7 [facility] HEMATOLOGY PTT 28.5 22.9 - 09/06 Normal <sup>9</sup>I [place] 35.8 /2011 nterpretive Medical Data: Heparin Center Therapeutic Range: 57 - 92 Seconds HEMATOLOGY Eosinophils 0.1 0.0 - 0.5 09/06 Normal [facility] HEMATOLOGY Basophils # 0.0 0.0 - 0.2 09/06 Normal [facility] HEMATOLOGY Basophils 0.4 0.0 - 1.0 09/06 Normal [facility] HEMATOLOGY Segs-Bands # 2.1 1.5 - 8.1 09/06 Normal [facility] HEMATOLOGY Monocytes 9.0 2.0 - 12.0 09/06 Normal [facility] HEMATOLOGY Eosinophils 2.4 0.0 - 4.0 09/06 Normal [facility] HEMATOLOGY Monocytes # 0.4 0.0 - 0.8 09/06 Normal [facility] HEMATOLOGY Lymphocytes 2.0 1.0 - 5.5 09/06 [place] [facility] HEMATOLOGY Lymphocytes 42.8 20.0 - 09/06 HI [place] 40.0 [facility] HEMATOLOGY Segs 45.4 45.0 - 09/06 Normal [place] 75.0 [facility] CHEMISTRY Chloride Lvl 105 95 - 109 09/06 Normal [facility] CHEMISTRY Potassium 4.1 3.5 - 5.1 09/06 Normal [facility] l [facility] CHEMISTRY Sodium Lvl 143 135 - 145 09/06 Normal [facility] CHEMISTRY CO2 29 24 - 32 09/06 Normal [facility] CHEMISTRY Calcium Lvl 8.7 8.5 - 10.5 09/06 Normal [facility] CHEMISTRY BUN 6 7 - 22 09/06 LOW [facility] CHEMISTRY Creatinine 0.6 0.5 - 1.4 09/06 Normal [facility] Lvl [facility] CHEMISTRY Glucose Lvl 118 09/06 NA <sup>6</sup>I [place] nterpretive Medical Data: Center Reference Ranges : 0 - 7 days : 41 - 90 mg/dL 7 days - 150 yrs : 70 - 99 mg/dL (fasting), based on the clinical recommendatio ns of the [place] [employer]. CHEMISTRY AGAP 13.1 10.0 - 09/06 Normal [facility] 20.0 [facility] HEMATOLOGY Basophils # 0.0 0.0 - 0.2 09/06 Normal [facility] HEMATOLOGY Monocytes # 0.3 0.0 - 0.8 09/06 Normal [facility] HEMATOLOGY Eosinophils 0.1 0.0 - 0.5 09/06 Normal [facility] HEMATOLOGY Segs-Bands # 2.8 1.5 - 8.1 09/06 Normal [facility] HEMATOLOGY Lymphocytes 1.7 1.0 - 5.5 09/06 Normal [facility] HEMATOLOGY Basophils 0.6 0.0 - 1.0 09/06 Normal [facility] HEMATOLOGY Monocytes 6.9 2.0 - 12.0 09/06 Normal [facility] HEMATOLOGY Eosinophils 2.0 0.0 - 4.0 09/06 Normal [facility] HEMATOLOGY Segs 55.8 45.0 - 09/06 Normal [facility] 75.0 [facility] HEMATOLOGY Lymphocytes 34.7 20.0 - 09/06 Normal [facility] 40.0 [facility] HEMATOLOGY PTT 32.2 22.9 - 09/06 Normal <sup>10</sup> [facility] 35.8 Interpretive Medical Data: [facility] Center Therapeutic Range: 57 - 92 Seconds HEMATOLOGY PT 13.3 12.0 - 09/06 Normal [facility] 14.7 Medical [place] HEMATOLOGY INR 1.01 0.85 - 09/06 Normal <sup>8</sup>[place] 1. nterpretive Medical Data: Center RECOMMENDED RANGES FOR PROTIME INR: 2.0-3.0 for most medical and surgical thromboemboli c states. 2.5-3.5 for artificial heart valves and recurrent embolism. INR SHOULD BE USED ONLY FOR PATIENTS ON STABLE ANTICOAGULANT THERAPY. HEMATOLOGY Hct 27.5 36.0 - 09/06 [facility] [place] 48.0 /2011 [facility] HEMATOLOGY RBC 3.34 4.20 - 09/06 [facility] 5.40 /2011 [facility] HEMATOLOGY Hgb 9.7 12.0 - 09/06 [facility] 16.0 /2011 [facility] HEMATOLOGY WBC 5.0 3.7 - 10.4 09/06 Normal [facility] HEMATOLOGY MPV 9.2 7.4 - 10.4 09/06 Normal [facility] HEMATOLOGY Platelet 240 133 - 450 09/06 Normal [facility] HEMATOLOGY RDW 14.3 11.5 - 09/06 [facility] 14.5 [facility] HEMATOLOGY MCHC 35.2 32.0 - 09/06 [facility] 36.0 /2011 [facility] HEMATOLOGY MCH 28.9 27.0 - 09/06 [facility] 31.0 /2011 [facility] HEMATOLOGY MCV 82.1 81.0 - 09/06 [facility] 99.0 /2011 [facility] CHEMISTRY Magnesium 2.1 1.8 - 2.4 09/02 [facility] Lvl [facility] Microbiolo Culture: 09/01 [facility] Aspirate/Bod [facility] Fluid/Tissue Microbiolo Culture: 09/01 [facility] Anaerobic [facility] CHEMISTRY Temp [place] 37.0 08/31 NA [facility] CHEMISTRY O2 Sat [place] 27.0 40.0 - 08/31 [facility] 70.0 [facility] CHEMISTRY pCO2 [place] 47 38 - 52 08/31 Normal [facility] CHEMISTRY pH [place] 7.37 7.28 - 08/31 [facility] 7.42 [facility] CHEMISTRY BE [place] 1 -2-2 - 2 08/31 Normal [facility] CHEMISTRY HCO3 [place] 27.2 22.0 - 08/31 HI [facility] 26.0 [facility] CHEMISTRY pO2 [place] 19 20 - 49 08/31 [facility] Microbiolo Culture: 08/31 [facility] Blood /2011 [facility] Microbiolo Culture: 08/31 [facility] Wound/Absces /2011 Medical s w/[facility] Stain CHEMISTRY Lactic Acid 1.0 0.5 - 2.2 08/31 Normal [facility] Center CHEMISTRY U Preg Negative Negative 08/31 Normal [facility] (09/01/2011 07:20:00) Ga dical Center URINALYSIS UA Sq Epi Occasional /LPF Few 08/31 Normal [facility] (09/01/2011 07:20:00) Ga dical Center URINALYSIS UA Leuk Est Negative Negative 08/31 [place] ([place] 07:20:00) [facility] URINALYSIS UA Nitrite Negative Negative 08/31 Normal [facility] (09/01/2011 07:20:00) [facility] URINALYSIS UA 0.2 0.1 - 1.0 08/31 Normal [facility] Urobilinogen /2011 Medical Center URINALYSIS UA Blood Negative Negative 08/31 Normal [facility] (09/01/2011 07:20:00) [facility] URINALYSIS UA Ketones >=80 mg/dL Negative 08/31 ABN Baljinder as *ABN* /2011 Medical (09/01/2011 07:20:00) Ce nter URINALYSIS UA Protein Negative Negative 08/31 Normal [facility] (09/01/2011 07:20:00) [facility] URINALYSIS UA pH 6.0 5.0 - 8.0 08/31 Normal [facility] URINALYSIS UA Bili Negative Negative 08/31 Normal [facility] (09/01/2011 07:20:00) [facility] URINALYSIS UA Glucose >=1000 mg/dL Negative 08/31 [place] *ABN* /2011 Medical (09/01/2011 07:20:00) Ce nter URINALYSIS UA Spec Grav 1.035 <=1.030 08/31 [facility] URINALYSIS UA Turbidity Clear Clear 08/31 Normal [facility] (09/01/2011 07:20:00) Me dical Center URINALYSIS UA Color Yellow Yellow 08/31 NA [place] *NA* /2011 Medical (09/01/2011 07:20:00) Ce nter CHEMISTRY Lactic Acid 2.8 0.5 - 2.2 08/31 HI [facility] CHEMISTRY Magnesium 1.5 1.8 - 2.4 08/31 LOW [facility] Center HEMATOLOGY Polychrom Slight None Seen 08/31 Normal [facility] (09/01/2011 02:47:00) /2011 [facility] HEMATOLOGY Anisocyte 1+ None [facility] 02:47[facility] Ce nter HEMATOLOGY Large Plt Slight None [facility]en 08/[facility] 02:47:00) Ce nter HEMATOLOGY Tear Cell Occasional 08/31 NA [facility] HEMATOLOGY Elliptocyte Slight None Seen 08/31 [facility] [place] * Medical (09/01/2011 02:47:00) Ce nter BEDSIDE Comment1 Notify 08/22 NA [facility] GLUCOSE RN/MD Medical TESTING Center BEDSIDE Gluc POC 134 65 - 110 08/22 [place] <sup>1</sup>I [facility] GLUCOSE [facility] nterpretive Medical TESTING Data: [place] Upper Reportable Limit: 200 mg/dL. BEDSIDE Gluc POC 182 65 - 110 08/22 [place] <sup>2</sup>I [facility] GLUCOSE [facility] [place] [facility] nterpretive Medical TESTING Data: [place] Upper Reportable Limit: 200 mg/dL. BEDSIDE Comment1 Notify 08/22 [facility] GLUCOSE RN/MD [facility] TESTING Center CHEMISTRY Phosphorus 3.0 2.5 - 4.5 08/22 Normal [facility] CHEMISTRY Magnesium 1.8 1.8 - 2.4 08/22 Normal [facility] CHEMISTRY Chloride Lvl 107 95 - 109 08/22 Normal [facility] CHEMISTRY Potassium 3.0 3.5 - 5.1 08/22 CRIT <sup>4</sup>R [place] esult Medical Comment: Center Critical Result(s) called to annie genao at 08/23/2011 5:18 by tac. Read back OK. CHEMISTRY Sodium Lvl 141 135 - 145 08/22 Normal [facility] CHEMISTRY Creatinine 0.6 0.5 - 1.4 08/22 Normal [facility] CHEMISTRY CO2 23 24 - 32 08/22 LOW [facility] CHEMISTRY Calcium Lvl 7.3 8.5 - 10.5 /04 [place] [facility] CHEMISTRY Glucose Lvl 136 03 NA <sup>5</sup>I [place] nterpretive Medical Data: Center Reference Ranges : 0 - 7 days : 41 - 90 mg/dL 7 days - 150 yrs : 70 - 99 mg/dL (fasting), based on the clinical recommendatio ns of the [place] [employer]. CHEMISTRY AGAP 14.0 10.0 - 03/04 Normal [place] 20.0 [facility] CHEMISTRY BUN 5 7 - 22 03/04 LOW [facility] HEMATOLOGY Segs 69.6 45.0 - 03/04 Normal [place] 75.0 Medical Center HEMATOLOGY Lymphocytes 21.5 20.0 - 03/04 Normal [place] 40.0 [facility] HEMATOLOGY Monocytes 7.6 2.0 - 12.0 03/ Normal [facility] HEMATOLOGY Eosinophils 1.0 0.0 - 4.0 03/ [place] [facility] HEMATOLOGY Basophils 0.3 0.0 - 1.0 03/ Normal [facility] HEMATOLOGY Segs-Bands # 4.8 1.5 - 8.1 03/ Normal [facility] HEMATOLOGY Eosinophils 0.1 0.0 - 0.5 03/ Normal [place] [facility] Center HEMATOLOGY Lymphocytes 1.5 1.0 - 5.5 03/ Normal [place] # [facility] Center HEMATOLOGY Monocytes # 0.5 0.0 - 0.8 03/ [place] [facility] HEMATOLOGY Basophils # 0.0 0.0 - 0.2 03/ [place] [facility] HEMATOLOGY MPV 11.0 7.4 - 10.4 03/ [facility] HEMATOLOGY Platelet 161 133 - 450 03/ Normal [facility] HEMATOLOGY MCH 29.6 27.0 - 03/04 Normal [place] 31.0 [facility] HEMATOLOGY MCHC 35.4 32.0 - 03/04 Normal [place] 36.0 [facility] HEMATOLOGY RDW 14.1 11.5 - 03/04 Normal [place] 14.5 Medical [place] HEMATOLOGY WBC 6.8 3.7 - 10.4 03/ Normal [facility] HEMATOLOGY MCV 83.5 81.0 - 03 Normal [facility] 99.0 /2011 [facility] HEMATOLOGY RBC 4.44 4.20 - 03 Normal [facility] 5.40 /2011 [facility] HEMATOLOGY Hgb 13.1 12.0 - 08/22 Normal [facility] 16.0 [facility] HEMATOLOGY Hct 37.1 36.0 - 08/22 Normal [facility] 48.0 /2011 Medical Center BEDSIDE Comment1 Notify 08/22 NA [facility] GLUCOSE RN/MD /2011 Medical TESTING Center BEDSIDE Gluc POC 332 65 - 110 08/22 [place] <sup>3</sup>I [facility] GLUCOSE [facility] nterpretive Medical TESTING Data: Center Upper Reportable Limit: 200 mg/dL. CHEMISTRY Phosphorus 2.5 2.5 - 4.5 08/21 Normal [facility] CHEMISTRY Glucose Lvl 201 08/21 NA <sup>6</sup>I [place] nterpretive Medical Data: Center Reference Ranges : 0 - 7 days : 41 - 90 mg/dL 7 days - 150 yrs : 70 - 99 mg/dL (fasting), based on the clinical recommendatio ns of the [place] [employer]. CHEMISTRY BUN 7 7 - 22 08/21 Normal [facility] CHEMISTRY CO2 19 24 - 32 08/21 [facility] CHEMISTRY Creatinine 0.3 0.5 - 1.4 08/21 [facility] CHEMISTRY Sodium Lvl 137 135 - 145 08/21 [facility] CHEMISTRY Chloride Lvl 103 95 - 109 08/21 [facility] CHEMISTRY Potassium 3.6 3.5 - 5.1 08/21 Normal [facility] CHEMISTRY Calcium Lvl 7.9 8.5 - 10.5 08/21 [facility] CHEMISTRY AGAP 18.6 10.0 - 08/21 [facility] 20.0 [facility] CHEMISTRY Magnesium 1.6 1.8 - 2.4 08/21 [facility] HEMATOLOGY Basophils # 0.0 0.0 - 0.2 08/21 Normal [facility] HEMATOLOGY Eosinophils 0.4 0.0 - 4.0 08/21 [facility] HEMATOLOGY Basophils 0.5 0.0 - [...] 82.8 81.0 - 08/21 Normal [place] 99.0 /2011 Medical Center HEMATOLOGY Hct 39.7 36.0 - 08/21 Normal [place] 48.0 Medical Center HEMATOLOGY MCH 29.1 27.0 - 03/ Normal [place] 31.0 /2011 Medical Center HEMATOLOGY [...] Phosphorus 2.6 2.5 - 4.5 03/ Normal [facility] Center CHEMISTRY Magnesium 1.8 1.8 - 2.4 03/ Normal [facility] Lvl Medical Center CHEMISTRY Potassium 3.7 3.5 - 5.1 03/ Normal [facility] Lvl Medical Center CHEMISTRY Sodium Lvl 137 135 - 145 03/ Normal Medical Center CHEMISTRY Creatinine 0.6 0.5 - 1.4 03/ Normal [facility] Lvl /2011 [facility] CHEMISTRY BUN 16 7 - 22 08/20 Normal [facility] CHEMISTRY Glucose Lvl 200 08/20 NA <sup>7</sup>I [place] nterpretive Medical Data: Center Reference Ranges : 0 - 7 days : 41 - 90 mg/dL 7 days - 150 yrs : 70 - 99 mg/dL (fasting), based on the clinical recommendatio ns of the [place] [employer]. CHEMISTRY Calcium Lvl 8.3 8.5 - 10.5 08/20 [place] /2011 [facility] CHEMISTRY AGAP 19.7 10.0 - 03 Normal [place] 20.0 [facility] CHEMISTRY Chloride Lvl 99 95 - 109 08/20 Normal [facility] CHEMISTRY CO2 22 24 - 32 08/20 LOW [facility] HEMATOLOGY Platelet 172 133 - 450 08/20 Normal [facility] HEMATOLOGY MPV 12.0 7.4 - 10.4 08/20 [facility] HEMATOLOGY WBC 7.3 3.7 - 10.4 08/20 Normal [facility] HEMATOLOGY RDW 14.6 11.5 - 08/20 [facility] 14.5 /2011 [facility] HEMATOLOGY MCHC 35.0 32.0 - 03 Normal [facility] 36.0 /2011 [facility] HEMATOLOGY RBC 4.54 4.20 - 08/20 Normal [facility] 5.40 /2011 [facility] HEMATOLOGY Hct 37.6 36.0 - 08/20 Normal [facility] 48.0 [facility] HEMATOLOGY MCV 82.9 81.0 - 08/20 Normal [facility] 99.0 [facility] HEMATOLOGY MCH 29.0 27.0 - 03 Normal [facility] 31.0 /2011 [facility] HEMATOLOGY Hgb 13.2 12.0 - 03 Normal <sup[place]sup[place] esult Medical Comment: Center rechecked, no clot seen HEMATOLOGY Elliptocyte Slight None Seen 08/20 ABN [place]isha s *ABN* /2011 Medical (08/21/2011 04:28:00) Ce nter HEMATOLOGY Polychrom Slight None Seen 08/20 Normal [facility] (08/21/2011 04:28:00) [facility] HEMATOLOGY Basophils # 0.0 0.0 - 0.2 03/ [place] [facility] HEMATOLOGY Hypochrom Slight None Seen 08/20 Normal [facility] (08/21/2011 04:28:00) [facility] Center HEMATOLOGY Monocytes # 0.6 0.0 - 0.8 03 [place] [facility] HEMATOLOGY Eosinophils 0.0 0.0 - 0.5 08/20 [place] # [facility] HEMATOLOGY Segs-Bands # 5.3 1.5 - 8.1 08/20 Normal [facility] HEMATOLOGY Lymphocytes 1.3 1.0 - 5.5 08/20 [place] # [facility] HEMATOLOGY Basophils 0.5 0.0 - 1.0 08/20 Normal [facility] Center HEMATOLOGY Monocytes 8.5 2.0 - 12.0 08/20 Normal Medical Center HEMATOLOGY Eosinophils 0.3 0.0 - 4.0 08/20 [place] [facility] HEMATOLOGY Lymphocytes 17.3 20.0 - 08/20 LOW [place] 40.0 Medical Center HEMATOLOGY Segs 73.4 45.0 - 03 Normal [place] 75.0 Medical Center BEDSIDE Comment2 Verify 08/19 NA [facility] GLUCOSE w/Lab Medical TESTING Center CHEMISTRY S Preg Negative Negative Normal [facility] (08/19/2011 15:58:00) [facility] CHEMISTRY Lipase Lvl 169 73 - 393 Normal Medical Center CHEMISTRY ALT 54 0 - 65 Normal Medical Center CHEMISTRY Alk Phos 110 39 - 136 Normal [facility] Center CHEMISTRY Bili Direct 0.1 0.0 - 0.3 Normal Medical Center CHEMISTRY Bili Total 0.9 0.2 - 1.3 Normal [facility] Center CHEMISTRY Albumin Lvl 4.4 3.5 - 5.0 Normal Medical Center CHEMISTRY Total 8.8 6.4 - 8.4 [facility] CHEMISTRY Bili 0.8 0.0 - 1.0 Normal Medical Center CHEMISTRY AST 36 0 - 37 Normal [facility] CHEMISTRY Globulin 4.4 2.0 - 4.0 [facility] CHEMISTRY A/G Ratio 1.0 0.7 - 1.6 Normal Medical Center URINALYSIS UA Bacteria Occasional /HPF None Seen Normal [facility] (08/19/2011 15:58:00) Me dical Center URINALYSIS UA RBC 3-5 /HPF 0 - 2 ABN [place] *ABN* Medical (08/19/2011 15:58:00) Ce nter URINALYSIS UA WBC 3 0 - 5 NA Medical Center URINALYSIS UA Mucus Few /LPF None Seen Normal [facility] (08/19/2011 15:58:00) [facility] URINALYSIS UA Amorph Occasional /HPF None Seen ABN [facility] Destiny *ABN* Medical (08/19/2011 15:58:00) Ce nter URINALYSIS UA 0.2 0.1 - 1.0 Normal [facility] Urobilinogen [facility] Center URINALYSIS UA Sq Epi Rare /LPF Few Normal [facility] (08/19/2011 15:58:00) Me dical Center URINALYSIS Micro? Performed Normal [facility] (08/19/2011 15:58:00) Me dical Center URINALYSIS UA Leuk Est Negative Negative [place] (08/19/2011 15:58:00) Me dical Center URINALYSIS UA Nitrite Negative Negative Normal [facility] (08/19/2011 15:58:00) Me dical Center URINALYSIS UA pH 5.5 5.0 - 8.0 Normal Medical Center URINALYSIS UA Blood Trace Negative ABN [facility] *ABN* Medical (08/19/2011 15:58:00) Ce nter URINALYSIS UA Bili Negative Negative Normal [facility] (08/19/2011 15:58:00) Me dical Center URINALYSIS UA Ketones 80 mg/dL Negative ABN [facility] *ABN* Medical (08/19/2011 15:58:00) Ce nter URINALYSIS UA Glucose >=1000 mg/dL Negative [place] *ABN* Medical (08/19/2011 15:58:00) Ce nter URINALYSIS UA Protein Negative Negative Normal [facility] (08/19/2011 15:58:00) [facility]ical Center URINALYSIS UA Turbidity Slight Cloudy Clear Normal [facility] (08/19/2011 15:58:00) Ga [facility]ical Center URINALYSIS UA Spec Grav 1.025 <=1.030 NA Medical Center URINALYSIS UA Color Yellow Yellow Normal [facility] (08/19/2011 15:58:00) Ga [facility]ical Center CHEMISTRY AST 23 0 - 37 Normal [facility] CHEMISTRY Bili Total 1.0 0.2 - 1.3 Normal [facility] CHEMISTRY Alk Phos 115 39 - 136 Normal [facility] CHEMISTRY ALT 56 0 - 65 Normal [facility] CHEMISTRY Total 9.0 6.4 - 8.4 [facility] Protein [facility] CHEMISTRY Albumin Lvl 4.8 3.5 - 5.0 Normal [facility] Center CHEMISTRY Globulin 4.2 2.0 - 4.0 HI [facility] CHEMISTRY A/G Ratio 1.1 0.7 - 1.6 Normal [facility] CHEMISTRY B/C Ratio 30 6 - 25 [facility] Center HEMATOLOGY RBC Morph Normal Normal [facility] (08/19/2011 15:13:00) Ga dicsc Center HEMATOLOGY Large Plt Slight None Seen ABN [facility] *ABN* Medical (08/19/2011 15:13:00) Ce nter HEMATOLOGY Atypical 0.0 <=0.0 Normal [facility] Lymphs [facility] HEMATOLOGY Bands 0.0 0.0 - 11.0 Normal [facility] CHEMISTRY O2 Sat [place] 74.0 40.0 - [facility] 70.0 Medical Center CHEMISTRY Temp [place] 37.0 NA Medical Center CHEMISTRY pO2 [place] 42 20 - 49 Normal [facility] CHEMISTRY HCO3 [place] 17.3 22.0 - LOW [facility] 26.0 [facility] Center CHEMISTRY pH [place] 7.34 7.28 - Normal [facility] 7.42 /2011 [facility] Center CHEMISTRY pCO2 [place] 32 38 - 52 LOW [facility] CHEMISTRY BE [place] -7 -2-2 - 2 LOW [facility] IMMUNOLOGY CDC-HIV 1/2 Negative Negative NA MARY ALICE lombardo Ab *NA* /2011 Medical (08/19/2011 14:34:00) Ce nter Pathology Reports No Data Provided for This Section Diagnostic Reports Report Value Date Source Abdomen RUQ US EXAM: US ABDOMEN LIMITED 07/26/2016 MARY ALICE lombardo Medical EXAM: Abdomen RUQ US Center DATE: 07/26/2016 7:29 AM POWER TOOL REPAIRER INDICATION: Abdominal pain, acute ADDITIONAL INFORMATION: Sign [...] DX EXAM: XR CHEST 1 VIEW 07/23/2016 [facility] edical DATE: 07/23/2016 9:47 PM POWER TOOL REPAIRER Cente r INDICATION: Chest pain COMPARISON: X-ray chest 1 view performed 2015 TECHNIQUE: AP chest FINDINGS: No pulmonary o r pleural-based abnormality is identified. Pulmonary vascularity is normal. The heart size is stable. No acute bony abnormality is identified. IMPRESSION: 1. No acute radiographic abnormality of the steven st. 2. Stable mild cardiomegaly. Retroperitoneal Complete EXAM: US RENAL 06/11/2016 [facility] US DATE: 06/11/2016 6:53 AM POWER TOOL REPAIRER [place] [address] INDICATION: Abdominal disten tion/proteinuria CT [...] DX EXAM: XR CHEST 1 VIEW 06/10/2016 [facility] edical DATE: 06/10/2016 1108 hours Cent er [...] CT ABDOMEN AND PELVIS WITH CONTRAST: 1 [facility] CT CLINICAL HISTORY: Abdominal pain, [...] Comments Source Systolic (mm Hg) 131 07/30/[address] [facility] Diastolic (mm Hg) 86 07/30/2016 [facility] Respitory Rate 20 07/30/2016 [facility] [place] Heart Rate 65 07/30/2016 [facility] Temperature Oral (F) 97.4 F 07/30/2016 [facility] Systolic (mm Hg) 169 07/30/[address] [facility] Diastolic (mm Hg) 99 07/30/2016 [facility] Heart Rate 66 07/30/2016 [facility] Temperature Oral (F) 97.2 F 07/30/2016 [facility] Respitory Rate 18 07/30/2016 [facility] [place] Heart Rate 67 07/30/2016 [facility] [place] [facility] Temperature Oral (F) 97.0 F 07/30/2016 [facility] Respitory Rate 16 07/30/2016 [facility] Center Systolic (mm Hg) 122 07/30/2016 [facility] dical Center Diastolic (mm Hg) 80 07/30/2016 [facility] edical Center Weight 92.273 07/24/2016 [facility] BMI Calculated 36.04 07/24/2016 [facility] Center Height 160.02 cm 07/24/2016 [facility] Respitory Rate 20 06/15/2016 [facility] Center Systolic (mm Hg) 169 06/15/2016 [facility] dical Center Diastolic (mm Hg) 90 06/15/2016 [facility] edical Center Respitory Rate 16 06/15/2016 [facility] Center Systolic (mm Hg) 151 06/15/2016 [facility] dical Center Diastolic (mm Hg) 73 06/15/2016 [facility] edical Center Respitory Rate 22 06/15/2016 [facility] Center Systolic (mm Hg) 176 06/15/2016 [facility] dical Center Diastolic (mm Hg) 95 06/15/2016 [facility] Temperature Oral (F) 97.1 F 06/14/2016 [facility] Center Temperature Oral (F) 97.1 F 06/14/2016 [facility] Center Temperature Oral (F) 96.8 F 06/12/2016 [facility] Medical Center Weight 103.182 06/11/2016 [facility] Height 160.02 cm 06/11/2016 [facility] BMI Calculated 40.3 06/11/2016 [facility] Center Heart Rate 82 06/11/2016 [facility] Heart Rate 81 06/11/2016 [facility] Heart Rate 82 06/10/2016 [facility] Weight 86.364 06/10/2016 [facility] BMI Calculated 33.73 06/10/2016 [facility]ya Center Height 160.02 cm 06/10/2016 [facility] Temperature Oral (F) 98.0 F 06/26/2014 [facility] Systolic (mm Hg) 111 06/26/2014 [facility] dical Center Heart Rate 104 06/26/2014 [facility] [place] Diastolic (mm Hg) 70 06/26/2014 [facility] Respitory Rate 18 06/26/2014 [facility] [place] Systolic (mm Hg) 109 06/26/2014 [facility] dical [place] Diastolic (mm Hg) 66 06/26/2014 [facility] Respitory Rate 18 06/26/2014 [facility] [place] Temperature Oral (F) 98.0 F 06/26/2014 [facility] Temperature Oral (F) 98.2 F 06/26/2014 [facility] Respitory Rate 21 06/26/2014 [facility] [place] Systolic (mm Hg) 106 06/26/2014 [facility] dical [place] Diastolic (mm Hg) 65 06/26/2014 [facility] Heart Rate 118 06/26/2014 [facility] Heart Rate 113 06/26/2014 [facility] Height 154.94 cm 06/26/2014 [facility] [place] Weight 75 06/26/2014 [facility] BMI Calculated 31.24 06/26/2014 [facility] [place] Respitory Rate 18 04/15/2013 [facility] Diastolic (mm Hg) 89 04/15/[address] [facility] [address] Heart Rate 81 04/15/2013 [facility] Systolic (mm Hg) 149 04/15/2013 [place] Temperature Oral (F) 98.7 F 04/15/2013 [facility] Resp[facility] Rate 18 04/15/2013 [facility] Diastolic (mm Hg) 87 04/15/[address] Systolic (mm Hg) 145 04/15/2013 [facility] Temperature Oral (F) 98.2 F 04/15/2013 [facility] Heart Rate 88 04/15/2013 [facility] Height 160.02 cm 04/15/2013 [place] Weight 63.636 04/15/2013 [facility] Temperature Oral (F) 98.6 F 04/15/2013 [facility] Respitory Rate 18 04/15/2013 [facility] Heart Rate 85 04/15/2013 [facility] Diastolic (mm Hg) 107 04/15/[address] Systolic (mm Hg) 172 04/15/2013 [place] Weight 58.636 03/14/2012 [place] Systolic (mm Hg) 138 12/01/2011 [facility] dical Center Respitory Rate 18 12/01/2011 [facility] Center Heart Rate 90 12/01/2011 [facility] Medica l Center Diastolic (mm Hg) 80 12/01/2011 [facility] edical Center Temperature Oral (F) 99.6 F 12/01/2011 [facility] Diastolic (mm Hg) 106 11/30/2011 [facility] edical Center Heart Rate 96 11/30/2011 [facility] Medica l Center Respitory Rate 18 11/30/2011 [facility] Medi [facility]ya Center Systolic (mm Hg) 187 11/30/2011 [facility] dical Center Temperature Oral (F) 99.8 F 11/30/2011 [facility] Respitory Rate 20 11/30/2011 [facility] Medi tawnya Center Systolic (mm Hg) 178 11/30/2011 [facility] dical Center Diastolic (mm Hg) 104 11/30/2011 [facility] edical Center Heart Rate 102 11/30/2011 [facility] Temperature Oral (F) 99.8 F 11/30/2011 [facility] Weight 56.818 11/29/2011 [place] [facility] Height 157.48 cm 11/29/2011 [place] [facility] Weight 57.273 11/28/2011 [place] [facility] Weight 66.364 09/18/2011 [place] [facility] Height 154.94 cm 09/18/2011 [facility] Medica l Center Heart Rate 75 09/09/2011 [facility] Medica l Center Systolic (mm Hg) 115 09/09/2011 [facility] dical Center Diastolic (mm Hg) 69 09/09/2011 [facility] edical Center Respitory Rate 18 09/09/2011 [facility] tawnya Center Temperature Oral (F) 97.5 F 09/09/2011 [place] [facility] Diastolic (mm Hg) 68 09/09/2011 [facility] [facility] Heart Rate 66 09/09/2011 [facility] Temperature Oral (F) 98.6 F 09/09/2011 [facility] Respitory Rate 20 09/09/2011 [facility] Systolic (mm Hg) 118 09/09/2011 [facility] Respitory Rate 20 09/09/2011 [facility] Diastolic (mm Hg) 71 09/09/2011 [facility] Systolic (mm Hg) 123 09/09/2011 [facility] Heart Rate 67 09/09/2011 [facility] Temperature Oral (F) 98.7 F 09/09/2011 [facility] Weight 68.182 09/01/2011 [facility] Height 154.94 cm 09/01/2011 [facility] Height 154.94 cm 09/01/2011 [facility] Weight 68.182 09/01/2011 [facility] Respitory Rate 20 08/23/2011 [facility] Heart Rate 93 08/23/2011 [facility] Systolic (mm Hg) 136 08/23/2011 [facility] Diastolic (mm Hg) 82 08/23/2011 [facility] Temperature Oral (F) 97.7 F 08/23/2011 [facility] Heart Rate 101 08/23/2011 [facility] Temperature Oral (F) 98.2 F 08/23/2011 [facility] Diastolic (mm Hg) 105 08/23/2011 [facility] Systolic (mm Hg) 172 08/23/2011 [facility] Respitory Rate 20 08/23/2011 [facility] Systolic (mm Hg) 158 08/23/2011 [facility] Diastolic (mm Hg) 98 08/23/2011 [facility] Temperature Oral (F) 98.3 F 08/23/2011 [facility] Heart Rate 95 08/23/2011 [facility] Respitory Rate 20 08/22/2011 [facility] Height 154.94 cm 08/20/2011 [facility] Weight 67.273 08/20/2011 [facility] Height 154.94 cm 08/19/2011 [facility] Weight 67.273 08/19/2011 [facility] Encounters Location Location Encounter Encounter Reason Attending ADM DC Stat us Source Details Type Number For Provider Date Date Visit [facility] Inpatient [id number] DKNaun HENRIQUEZ 08/22 Active Medical 0 AHMED /2011 [facility] Inpatient [id number] [place] FLOR[place] 08/31 09/08 Active Medical 1 ABSCESS/ OMIDVAR /2011 [facility] Emergency [id number] CASA 09/17 09/17 Discha rg Medical 2 BUBLEWICZ /2011 ed [facility] OU [id number] N/V OSMAR 11/27 11/29 Active Medical 3 INABILIT GUNNAR /2011 [facility] PO Emergency [id number] HUNG HERNANDEZ 03/14 03/14 Discha rg [facility] ed [facility] Emergency [id number] ABD PAIN OMAIRA 04/14 04/15 Active [facility] 7 MARRY /2012 [place] [id number] Atul 06/26 06/26 [facility] Emergency 8 Ostermayer /2014 [facility] Inpatient [id number] Joe 06/10 06/15 [facility] /2015 [facility] Inpatient [id number] Danaeja Cha 07/24 07/30 Vin 0 /2016 [facility] Preadmit [id number] NAUSEA, CASA Active M [facility] 8 VOMITING [facility] Outpatient [id number] GASTROPE NON Canc el Medical 6 RIS PHYSICIAN [facility] Outpatient [id number] GASTROPE NON Canc [facility] Medical 5 [facility] Procedures Procedure Code Date Perfomer Comments Source Emergency [id number] 04/15/2013 [facility] department visit for the evaluation and management of a patient, which requires these 3 kamara components within the constraints imposed by the urgency of the patient's clinical condition and/or mental status: A comprehensive history; A comprehensi Injection or 99.29 04/15/2013 [facility] Infusion of Other Therapeutic or Prophylactic Substance Intravenous 04199 04/15/2013 [facility] infusion, hydration; each additional hour (List separately in addition to code for primary procedure) Therapeutic, 42786 04/15/2013 [facility] prophylactic, or diagnostic injection (specify substance or drug); each additional sequential intravenous push of a new substance/drug (List separately in addition to code for primary procedure) Therapeutic, 76021 04/15/2013 [facility] prophylactic, or diagnostic injection (specify substance or drug); intravenous push, single or initial substance/drug section [id number] [facility] Tubal ligation [id number] [facility] Assessment and Plan Assessment and Plan Date Source Extracted from:Title: Hospitalist Progress Note 07/30/2016 [facility] Author: Luna Jamison MD [place] Date: 07/30/16 Assessment/Plan 1.Acute on chronic kidney [...] que stions. We can be reached at [phone]. Extracted from:Title: History and Physical Author: Danae [...] Weight 92.273, kg, Start date: 07/24/16 9:00:00 POWER TOOL REPAIRER, Duration: 30 day, Stop date: 08/22/16 9:00:00 POWER TOOL REPAIRER atorvastatin, 40 mg, 1 tab, Route: PO , Drug form: TAB, Bedtime, Dosing Weight 92.273, kg, Start date: 07/24/16 21:00:00 POWER TOOL REPAIRER, Duration: 30 day, Stop date: 08/22/16 21:00:00 POWER TOOL REPAIRER buPROPion, 150 mg, 1 tab, Route: PO, Drug form: ERTAB, Daily, Dosing Weight 92.273, kg, Start date: 07/24/16 9:00:00 POWER TOOL REPAIRER, Duration: 30 day, Stop date: 08/22/16 9:00:00 POWER TOOL REPAIRER Dextrose 50% Syringe, 25 gm, 50 mL, R oute: IVP, Drug Form: INJ, Dosing Weight 92.273, kg, PRN, PRN Blood Glucose Results, Start date: 07/24/16 2:40:00 POWER TOOL REPAIRER, Duration: 30 day, Stop date: 08/23/16 2:39:00 POWER TOOL REPAIRER Dextrose 50% Syringe, 12.5 gm, 25 mL, Route: IVP, Drug Form: INJ, Dosing Weight 92.273, kg, PRN, PRN Blood Glucose Results, Start date: 07/24/16 2:40:00 POWER TOOL REPAIRER, Duration: 30 day, Stop date: 08/23/16 2:39:00 POWER TOOL REPAIRER Depakote ER 500 mg oral tablet, exten ded release, 500 mg, 1 tab, Route: PO, Drug form: ERTAB, QAM, Dosing Weight 92.273, kg, Start date: 07/24/16 9:00:00 POWER TOOL REPAIRER, Duration: 30 day, Stop date: 08/22/16 9:00:00 POWER TOOL REPAIRER docusate, 100 mg, 1 cap, Route: PO, D rug form: CAP, BID, Dosing Weight 92.273, kg, PRN Constipation, Start date: 07/24/16 1:20:00 POWER TOOL REPAIRER, Duration: 30 day, Stop date: 08/23/16 1:19:00 POWER TOOL REPAIRER Lasix, 40 mg, 4 mL, Route: IVP, Drug form: INJ, Q12H, Dosing Weight 92.273, kg, Start date: 07/24/16 9:00:00 POWER TOOL REPAIRER, Duration: 30 day, Stop date: 08/22/16 21:00:00 POWER TOOL REPAIRER gabapentin 300 mg oral capsule, 1 cap , Route: PO, Drug form: CAP, BID, Dosing Weight 92.273, kg, Start date: 07/24/16 9:00:00 POWER TOOL REPAIRER, Duration: 30 day, Stop date: 08/22/16 17:00:00 POWER TOOL REPAIRER glucagon, 1 mg, Route: IM, Drug form: PDR/INJ, PRN, Dosing Weight 92.273, kg, PRN Blood Glucose Results, Start date: 07/24/16 2:40:00 POWER TOOL REPAIRER, Duration: 30 day, Stop date: 08/23/16 2:39:00 POWER TOOL REPAIRER hydrALAZINE 100 mg oral tablet, 100 m g, 1 tab, Route: PO, Drug form: TAB, BID, Dosing Weight 92.273, kg, Start date: 07/24/16 9:00:00 POWER TOOL REPAIRER, Duration: 30 day, Stop date: 08/22/16 17:00:00 POWER TOOL REPAIRER insulin aspart, 4 unit, 0.04 mL, Rout e: SUB-Q, Drug form: SOLN, TID-Before Meals, Dosing Weight 92.273, kg, PRN Blood Glucose Results, Start date: 07/24/16 2:40:00 POWER TOOL REPAIRER, Duration: 30 day, Stop date: 08/23/16 2:39:00 POWER TOOL REPAIRER insulin aspart, 5 unit, 0.05 mL, Rout e: SUB-Q, Drug form: SOLN, TID-Before Meals, Dosing Weight 92.273, kg, PRN Blood Glucose Results, Start date: 07/24/16 2:40:00 POWER TOOL REPAIRER, Duration: 30 day, Stop date: 08/23/16 2:39:00 POWER TOOL REPAIRER insulin aspart, 2 unit, 0.02 mL, Rout e: SUB-Q, Drug form: SOLN, TID-Before Meals, Dosing Weight 92.273, kg, PRN Blood Glucose Results, Start date: 07/24/16 2:40:00 POWER TOOL REPAIRER, Duration: 30 day, Stop date: 08/23/16 2:39:00 POWER TOOL REPAIRER insulin aspart, 3 unit, 0.03 mL, Rout e: SUB-Q, Drug form: SOLN, TID-Before Meals, Dosing Weight 92.273, kg, PRN Blood Glucose Results, Start date: 07/24/16 2:40:00 POWER TOOL REPAIRER, Duration: 30 day, Stop date: 08/23/16 2:39:00 POWER TOOL REPAIRER insulin aspart, 1 unit, 0.01 mL, Rout e: SUB-Q, Drug form: SOLN, TID-Before Meals, Dosing Weight 92.273, kg, PRN Blood Glucose Results, Start date: 07/24/16 2:40:00 POWER TOOL REPAIRER, Duration: 30 day, Stop date: 08/23/16 2:39:00 POWER TOOL REPAIRER insulin aspart, 2 unit, 0.02 mL, Rout e: SUB-Q, Drug form: SOLN, TID-Before Meals, Dosing Weight 92.273, kg, Start date: 07/24/16 7:30:00 POWER TOOL REPAIRER, Duration: 30 day, Stop date: 08/22/16 16:30:00 POWER TOOL REPAIRER Lantus 100 units/mL, 40 unit, 0.4 mL, Route: SUB-Q, Drug form: SOLN, Daily, Dosing Weight 92.273, kg, Start date: 07/24/16 9:00:00 POWER TOOL REPAIRER, Duration: 30 day, Stop date: 08/22/16 9:00:00 POWER TOOL REPAIRER metoprolol extended release, 100 mg, 2 tab, Route: PO, Drug form: ERTAB, Daily, Start date: 07/24/16 9:00:00 POWER TOOL REPAIRER, Duration: 30 day, Stop date: 08/22/16 9:00:00 POWER TOOL REPAIRER ondansetron, 4 mg, 2 mL, Route: IVP, Drug form: INJ, Q6H, Dosing Weight 92.273, kg, PRN Nausea and Vomiting, Start date: 07/24/16 1:20:00 POWER TOOL REPAIRER, Duration: 30 day, Stop date: 08/23/16 1:19:00 POWER TOOL REPAIRER Protonix, 40 mg, 1 tab, Route: PO, Dr ug form: ECTAB, Daily, Dosing Weight 92.273, kg, Start date: 07/24/16 9:00:00 POWER TOOL REPAIRER, Duration: 30 day, Stop date: 08/22/16 9:00:00 POWER TOOL REPAIRER Zoloft, 200 mg, 2 tab, Route: PO, Ezio g form: TAB, Daily, Dosing Weight 92.273, kg, Start date: 07/24/16 9:00:00 POWER TOOL REPAIRER, Duration: 30 day, Stop date: 08/22/16 9:00:00 POWER TOOL REPAIRER Up ad monique Ambulation Basic Metabolic Panel [...] Acute Care Floor) Troponin-I Troponin-T Vital Signs [facility] hospitalist is primary. Please call [phone] for additional questions. Prophylaxis TEDs Disposition DC when medically stable. Extracted from:Title: Team A Discharge Summary 06/15/2016 [facility] Author: Gina Gomes MD Center [...] management Follow Up Appts: Follow Up With [facility] , Call for appointment, faby [...] All Problems (Selected) Hypertension / SNOMED CT 68006442 / Confirmed Hypokalemia / SNOMED CT 70198814 / Confirmed Hypomagnesemia / ICD-9-CM 275.2 / Confirmed MRSA / SNOMED CT 328762444 / Confirmed Problem added by Discern Expert. 09/01/11 - Elbow wound Nausea and vomiting / SNOMED CT 53139683 / Confirmed Objective Meds Scheduled Meds (15):aspirin [...] 14 15:00) DBP H 92mmHg (JUN 14 15:) SpO2 98 % (JUN 14:) General: Alert [...] 104 (JUN 11) Cr H 2.00 (MAY 22 5) H 1.63 (JUN 13) H 1.63 (JUN [...] Extracted from:Title: Infection Control Isolation Alert Author: Kusum Rand Date: 06/12/16 ISOLATION ALERT This patient has [...] que stions. We can be reached at [phone]. Extracted from:Title: Medicine Team A History and Physical Author: Silverio Robles MD Date: 06/10/16 Medicine Team A History and Physical Note: Patient Room: [place] [address], [facility] 35y (: 1980) F Attending: Joe Juárez MD Sara ne: Service: Nephrology CHIEF COMPLAINT: Shortness of [...] upper and lower extremities strength 5/5 bilaterally, cleaning porter strength 5/5, pitting pedal edema bilaterally 2+ [...] History Date Source Social History TypeResponse 06/11/2016 [facility] Substance Abuse Use: None. 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
--- OUTSIDE RECORDS SUMMARY | 2020-07-03 12:23 | XMS REPORT | Continuity of Care Document ---
:1980 Author Organization [facility] t Address [address] [place] [address] Care Team Providers Name Role Phone Sharpless Primary Care Physician Marshall BURNS, K.H. Attending Clinician Chivo Attending [...] NEW 00:00: Vin EVALUATION 00 Active 07/12/2018 [facility] Liver Liver Disease Active [facility] failure[facility], -[facility] acute acute 00:00: [address] SANJUANA (acute SANJUANA (acute Disease Active [...] 7-16 Pati kes - 00:00: Medical 00 [place] Hyperglyce Hyperglyce Disease Active [facility] 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 16 Pati kes - type 2 type 2 00:00: Medical diabetes diabetes 00 Center mellitus mellitus Gastropare Gastropare Disease Active [facility] sis due to sis due to 16 Pati kes - DM DM 00:00: Medical 00 [place] Cyclic Cyclic Disease Active [facility] vomiting vomiting 16 [facility] - syndrome syndrome 00:00: Medica l 00 Center Anxiety Anxiety Disease Active [facility] 7[facility]16 [facility] - 00:[facility]: Medical 00 [place] Bipolar Bipolar Disease Active [facility] disorder disorder [facility] - 00:00: Medical 00 [place] Hypertensi Hypertensi Disease Active [facility] ve ve -16 [facility] - emergency emergency 00:00: [facility] 00 [place] CONGESTION Diagnosis Active 2016-07-24 Memoria AMD 2-02 01:49:00 l DIARRHEA 00:00: [place] CONGESTION 00 AMD DIARRHEA Active 07/23/2016 [facility] ACUTE RESP Diagnosis Active 2016-09-09 Memoria FAILURE 2-02 09:11:00 l ACUTE 00:00: Vin RESP 00 FAILURE Active 07/23/2016 [facility] SOB/SWELLI Diagnosis Active 2015-062016-06-10 Memoria NG 2- 15:48:00 l 00:00: Vin SOB/SWELLI [address] [facility] CHF/RENAL Diagnosis Active 2015-062016-06-24 Memoria DISEASE 2- 15:35:00 l 00:00: Vin CHF/RENAL 00 DISEASE Active 06/10/2016 [facility] ABDOMINAL Diagnosis Active 2014-06-26 Memoria PAIN, 1-06 05:44:00 l SEIZURES 00:00: Vin ABDOMINAL 00 PAIN, SEIZURES Active 06/26/2013 [facility] ABD PAIN Diagnosis Active 2012-062013-04-19 M emoria 0-25 21:51:00 l ABD PAIN 19:00: Jake n 00 Active 04/14/2013 [facility] GASTROPERI Diagnosis Active 2012-09-13 Memoria SIS 2- 15:17:00 l 00:00: Vin GASTROPERI 00 SIS Active 08/02/2012 [facility] ABDOMINAL Diagnosis Active 2012-03-14 Memoria PAIN 03-14 16:56:00 l 14:00: [place] ABDOMINAL 00 PAIN Active 03/14/2012 [facility] NAUSEA, Diagnosis Active 2012-03-14 Me moria VOMITING 03-14 13:25:00 l NAUSEA, 08:00: Vin VOMITING 00 Active 03/14/2012 [facility] VOMITTING Diagnosis Active 2011-11-28 Memoria 11-27 16:28:00 l 00:00: [place] VOMITTING 00 Active 11/28/2011 [facility] N/V Diagnosis Active 2011-12-08 Mem oria INABILITY 11-27 11:14:00 l TO N/V 00:00: Vin TOLERATE INABILITY 00 PO TO TOLERATE PO Active 2 [facility] VOMITTING, Diagnosis Active 2011-09-18 Memoria HIGH BLOOD 09-17 09:45:00 l SUGAR 00:00: Vin VOMITTING, 00 HIGH BLOOD SUGAR Active 09/18/2011 [facility] MRSA Problem Active 2012-03-16 Memor ia 3- 09:11:30 l MRSA 00:00: Vin 00 Active 09/01/2011 Problem 03/16/2012 - Elbow [id number] emily added by Discern Expert. 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 [facility] ELBOW Diagnosis Active 2011-09-10 Mem oria ABSCESS/HY - 16:26:00 l PERGLYCEMI ELBOW 00:00: Nidia nn A ABSCESS/HY 00 PERGLYCEMI A Active 08/31/2011 [facility] VOMITING, Diagnosis Active 2011-09-01 Memoria BLOOD 08-30 03:19:00 l SUGAR 00:00: [place] READINGS VOMITING, 00 HIGH BLOOD SUGAR READINGS HIGH Active 08/31/2011 [facility] Hypokalemi Problem Active 2012-03-16 M emoria a 08-22 09:11:30 l 00:00: Vin Hypokalemi 00 a Active 08/23/2011 Problem 03/16/2012 [facility] VOMITING Diagnosis Active 2011-08-19 M emoria 16:21:00 l VOMITING 00:00: Jake n 00 Active 08/19/2011 [facility] DKA Diagnosis Active 2011-08-24 Mem oria 11:27:00 l DKA 00:00: Vin 00 Active 08/19/2011 [facility] Final: Problem 2016-08-02 Memor ia Acute 02:46:22 l respirator Final: Herm naeem y failure, Acute unspecifie respirator d whether y failure, with unspecifie hypoxia or d whether hypercapni with a hypoxia or hypercapni a 08/02/2016 [facility] Hypoglycem Problem Inactiv 2013-04-22 Memoria ia e 04:46:33 l (disorder) Jake n Hypoglycem ia (disorder) Inactive Problem 04/22/2013 [facility] Hypoglycem Problem Inactiv 2012-03-16 Memoria ia e 09:11:30 l Vin Hypoglycem ia Inactive Problem 03/16/2012 [facility] Diabetes Problem Resolve 2016-08-02 Me moria mellitus d 02:46:22 l (disorder) Diabetes He rmann mellitus (disorder) Resolved Problem 08/02/2016 [facility] Gastropare Problem Resolve 2016-08-02 Memoria sis d 02:46:22 l (disorder) Jake n Gastropare sis (disorder) Resolved Problem 08/02/2016 [facility] Hypertensi Problem Resolve 2016-08-02 Memoria ve d 02:46:22 l disorder, Vin systemic Hypertensi arterial ve (disorder) disorder, systemic arterial (disorder) Resolved Problem 08/02/2016 [facility] Psychiatri Problem Resolve 2016-08-02 Memoria c d 02:46:22 l behavioral Jake n disability Psychiatri (finding) c behavioral disability (finding) Resolved Problem 08/02/2016 [facility] Seizure Problem Resolve 2016-08-02 Mem oria (finding) d 02:46:22 l Seizure Vin (finding) Resolved Problem 08/02/2016 [facility] Hypomagnes Problem Active 2013-04-22 M emoria emia 04:46:33 l Vin Hypomagnes emia Active Problem 04/22/2013 [facility] Hypertensi Problem Active 2012-03-16 M emoria on 09:11:30 l [place] Hypertensi on Active Problem 2 [facility] Nausea and Problem Active 2012-03-16 M emoria vomiting 09:11:30 l Nausea [place] and vomiting Active Problem 03/16/2012 [facility] DMI Diagnosis Active 2011-08-24 Mem oria KETOACD 11:27:00 l UNCONTROLD DMI Jake n KETOACD UNCONTROLD Active [facility] OTHER Diagnosis Active 2011-09-10 Mem oria GENERAL 16:26:00 l SYMPTOMS OTHER [place] GENERAL SYMPTOMS Active [facility] HEART Diagnosis Active 2016-06-24 Mem oria FAILURE, 15:35:00 l UNSPECIFIE HEART Nidia nn D FAILURE, UNSPECIFIE D Active [facility] ACUTE Diagnosis Active 2016-09-09 Mem oria RESPIRATOR 09:11:00 l Y FAILURE, ACUTE Nidia nn UNSP W RESPIRATOR HYPOXI Y FAILURE, UNSP W HYPOXI Active [facility] Discharge Problem 2014-06-28 2014-06-28 Memoria Diagnosis: 1-06 16:34:37 16:34:37 l Gastropare 06:00: Jake gonzalez sis Discharge 00 Diagnosis: Gastropare sis 06/26/2014 06/28/2014 [facility] History of Past Illness Condition Condition Condition Status Onset Resolution Last Treating Co mments Source Name Details Category Date Date Treatment Clinician Date Nausea and Problem Resolve 2016-08-02 2016-08-02 Memoria vomiting d 6-10 02:46:22 02:46:22 l (disorder) Nausea 00:00: Herm naeem and 00 vomiting (disorder) Resolved 11/29/2011 Problem 08/02/2016 [facility] Hypokalemi Problem Resolve 2016-08-02 2016-08-02 Memoria a d 3-04 02:46:22 02:46:22 l (disorder) 00:00: Jake n Hypokalemi 00 a (disorder) Resolved 08/23/2011 Problem 08/02/2016 [facility] Disorder Problem Resolve 2016-08-02 2016-08-02 Memoria of d 3-04 02:46:22 02:46:22 l magnesium Disorder 00:00: Her braden metabolism of 00 (disorder) magnesium metabolism (disorder) Resolved 08/23/2011 Problem 08/02/2016 [facility] Hyperglyce Problem Resolve 2016-08-02 2016-08-02 Memoria maryam d 3- 02:46:22 02:46:22 l (disorder) 00:00: Jake n Hyperglyce 00 maryam (disorder) Resolved 08/20/2011 Problem 08/02/2016 [facility] Ketoacidos Problem Resolve 2016-08-02 2016-08-02 Memoria is in d 2- 02:46:22 02:46:22 l diabetes 00:00: Vin mellitus Ketoacidos 00 (disorder) is in diabetes mellitus (disorder) Resolved 08/19/2011 Problem 08/02/2016 [facility] DKA Problem Resolve 2013-04-22 2013-04-22 Memoria (diabetic d 2- 04:46:33 04:46:33 l ketoacidos DKA 00:00: Jake n es) (diabetic 00 ketoacidos es) Resolved 08/19/2011 Problem 04/22/2013 [facility] Hyperglyce Problem Inactiv 2012-03-16 2012-03-16 Memoria maryam e 3- 09:11:30 09:11:30 l 00:00: Vin Hyperglyce 00 maryam Inactive 08/20/2011 Problem 03/16/2012 [facility] Allergies, Adverse Reactions, Alerts Allergy [...] 00 Center codeine codeine Active Memoria l [place] penicill penicill Active Memori a ins ins l [place] Prolex Prolex Active Memoria DM DM l Vin Ambien Ambien Active Memoria l [place] lisinopr lisinopr Active Memori a il il l [place] Social History Social Habit Start Date Stop Date Quantity Comments Source Sex Assigned At [facility] Cigarettes smoked 2017-12-17 2017-12-17 [facility] - current (pack per 00:00:00 00:00:00 Medical Center day) - Reported Cigarette 2017-12[facility]17 [facility] Alcohol intake 2017-12-17 2017-12-17 [facility] non-drinker of Medical Ce nter alcohol (finding) Tobacco Comment 2017-01-03 2017-01-03 patient stated [facility] - 00:00:00 00:00:00 she stopped [address] month ago. History of tobacco 2016-12-[address] [facility] - use 00:00:00 [facility] Social History 2016-06-11 2016-06-11 [facility] fatou 04:38:12 04:38:12 Smoking Status Start Date Stop Date Source Former smoker 2017-12-17 00:00:00 2017-12-17 00:00:[address] [facility] Medications Ordered Filled Start Stop Current Ordering Indication Dosage Frequency Signature Comments Components Source Medication Medication Date Date Medication? Clinician (SIG) Name Name divkatyaproex 2017- Yes depression 500mg QD Take [address] [facility] (DEPAKOTE) 7-20 associated mg by Pati kes - 500 MG EC 15:20: with mouth Medical tablet 59 bipolar daily. Center disorder ondansetron 2017- Yes 4mg Take [address] (ZOFRAN) 4 7-20 by mouth [facility] - MG tablet 15:20: every 6 Medic al 59 (six) Center hours as needed for Nausea. traMADol 2017- Yes 50mg Take [address] (ULTRAM) 50 7-20 by mouth Luke s - mg tablet 15:20: every 6 Medic al 59 (six) Center hours as needed for Pain. pantoprazol 2017- Yes 40mg QD Take [address] [facility] e 7-20 by mouth [facility] - (PROTONIX) 15:20: daily. Medic al 40 MG 59 Center tablet amLODIPine 2017 Yes 10mg QD Take [address] (NORVASC) 5 7-20 by mouth Luke s - MG tablet 15:20: daily. Medica l 59 Center hydrALAZINE Yes 100mg [id number] Take [address] (APRESOLINE 7-20 [id number] mg by L ukes - ) 100 MG 15:20: 3D mouth 3 Medica l tablet 59 (three) Center times daily. magnesium 2017- Yes 400mg QD Take [address] oxide 7-20 mg by [facility] - (MAG-OX) 15:20: mouth Medical 400 mg 59 daily. Center tablet metoclopram 2017-0 Yes 10mg Q.[id number] Take [address] gadiel HCl 7-20 [id number] by mouth 3 [facility] - (REGLAN) 10 15:20: 3D (three) Med ical MG tablet 59 times Center daily. meclizine 2017- Yes 12.5mg Take 12.[address] (ANTIVERT) 7-20 mg by [facility] - 25 MG 15:20: mouth 3 Medical tablet 59 (three) Center times daily as needed. sertraline 2017- Yes anxiety QD Take by C HI [...] Vin 00 30 tab, 0 Refill(s), Pharmacy: [facility] [id number] Bumex No 0.5 mg, Memoria 2-09 Route: PO, l 15:00: Drug form: [place] 00 TAB, Daily, Dosing Weight 92.273, kg, Start date: 07/30/16 9:00:00 SEROLOGY TECHNICIAN, Duration: 30 day, Stop date: 08/28/16 9:00:00 SEROLOGY TECHNICIAN Lasix No Notes: Memoria 2-08 (Same as: l 20:05: Lasix) [place] 00 May cause GI upset. Give with food or milk. Hydralazine No Notes: Mendoza janice 2-08 (Same as: l 06:05: Apresoline [place] 00 ) Push over 5 minutes sodium 2016- No 1,000 mL, Memori a chloride 2-05 Rate: 125 l 0.9% 1000 18:26: ml/hr, Jake n ml INJ 00 Infuse 1,000 mL over: 8 hr, Route: IV, Dosing Weight 92.273 kg, Total Volume: 1,000, Start date: 07/26/16 12:26:00 SEROLOGY TECHNICIAN, Duration: 30 day, Stop date: 08/25/16 12:25:00 SEROLOGY TECHNICIAN Sodium 2017- No 500 mL, Memoria Chloride 2-05 500 ml/hr, l 0.154 13:30: Infuse Vin MEQ/ML 00 Over: 1 Injectable hr, Route: Solution IV, 500, Drug form: INJ, ONCE, Priority: STAT, Dosing Weight 92.273 kg, Start date: 07/26/16 7:30:00 SEROLOGY TECHNICIAN, Duration: 1 doses or times, Stop date: 07/26/16 7:30:00 SEROLOGY TECHNICIAN Insulin No 60 Memoria regular 2-04 units) l 08:39: WASTE: F/P Vin 00 - Black; E - Municipal Trash [...] Roll in l Human 03:28: palms of Vin 00 hands gently; Do [...] Weight 92.273, kg, Start date: 07/24/16 9:00:00 SEROLOGY TECHNICIAN, Duration: 30 day, Stop date: 08/22/16 9:00:00 SEROLOGY TECHNICIAN 24 HR No Notes: Memoria Divalproex 2-03 [...] form: ERTAB, Daily, Start date: 07/24/16 9:00:00 SEROLOGY TECHNICIAN, Duration: 30 day, Stop date: 08/22/16 9:00:00 SEROLOGY TECHNICIAN Insulin No Notes: Memoria Glargine 2-03 Same [...] janice 2-03 (Same as: l 14:50: Zofran) Ivn 00 MEDICATION WASTE Product Size: 4 mg Product Wasted: ___ mg Morphine No Notes: Memoria 2-03 (Same l 14:50: as:MORPhin [place] 00 e Sulfate) Insulin, No Notes: Memoria Aspart, 2-03 Roll in l Human 13:30: palms of [place] 00 hands gently; Do not shake vigorously . (Same as: NovoLOG) "single patient use only" WASTE: F/P - Black; E - Municipal Trash Bin Stable for 28 days at room temperatur e. Expires in days from ____Date Dilaudid No Notes: Memoria 2-03 Same as l 11:28: Dilaudid [place] 00 Insulin, No Notes: Memoria Aspart, 2-03 [...] Blood Glucose Results, Start date: 07/24/16 2:40:00 SEROLOGY TECHNICIAN, Duration: 30 day, Stop date: 08/23/16 2:39:00 SEROLOGY TECHNICIAN Dextrose No 25 gm, 50 Mendoza janice 50% Syringe 2-03 mL, Route: l 08:40: IVP, Drug Form: INJ, Dosing Weight 92.273, kg, PRN, PRN Blood Glucose Results, Start date: 07/24/16 2:40:00 SEROLOGY TECHNICIAN, Duration: 30 day, Stop date: 08/23/16 2:39:00 SEROLOGY TECHNICIAN Docusate No Notes: Memoria 2-03 (Same as: l 07:20: Colace) Vin (Do Not Crush) Ondansetron No Notes: Mendoza janice 2- (Same as: l 07:20: Zofran) Vin 00 MEDICATION WASTE Product Size: 4 mg Product Wasted: ___ mg Lasix No Notes: Memoria 2-03 (Same as: l 06:01: Lasix) MEDICATION WASTE Product Size: 40 mg Product Wasted: ___ mg Aspirin No Notes: Memoria 2-03 Take with l 05:48: food. Vin Prednisone No Notes: Memor ia 2-03 Take with l 05:02: food. [place] 00 Albuterol No Notes: Memori a 0.833 MG/ML 07-24 (Same as: l / 04:09: Duoneb) Ipratropium 00 Momence 0.167 MG/ML Inhalant Solution [DuoNeb] Furosemide 2015-06 [...] tab, PO, l tablet 16:34: Daily, # [place] 00 30 tab, 0 Refill(s) Lasix 2015-06 No Notes: Memoria 2-26 (Same as: l 15:00: Lasix) [place] 00 May cause GI upset. Give with food or milk. Magnesium 2015-06 No Notes: Memori a Oxide 2-24 (Same as: l 13:36: Mag-Ox [place] 00 400) Magnesium oxide 780zi=408g g elemental magnesium Dose=____m g magnesium oxide (___mg elemental magnesium) Magnesium 2015-06 No Notes: Memori a Oxide 2-24 (Same as: l 09:47: Mag-Ox [place] 00 400) Magnesium oxide 531yz=104b g elemental magnesium Dose=____m g magnesium oxide [...] Memoria 2-24 (Same as: l 00:00: Norvasc) [place] 00 Insulin 2015-06 No Notes: Memoria Glargine [...] tab, PO, l tablet 15:35: Daily, 0 Vin 00 Refill(s) pravastatin 2015-06 No 40 mg = 1 M emoria 40 mg oral 2-23 tab, PO, l tablet 15:35: Daily, 0 Vin 00 Refill(s) Sertraline 2015-06 Yes 200 mg [...] 2-22 Route: PO, l 15:00: Drug form: [place] 00 ECTAB, Daily, Dosing Weight 86.364, kg, Start date: 06/11/16 9:00:00 SEROLOGY TECHNICIAN, Duration: 30 day, Stop date: 07/10/16 9:00:00 SEROLOGY TECHNICIAN Insulin 2015-06 No Notes: Memoria Glargine 2-22 Same as: l 100 UNT/ML 15:00: Lantus) Do H ermann Injectable 00 not hold Solution insulin [Lantus] without contacting prescriber WASTE: F/P - Black; E - Municipal Trash Bin Zoloft 2015-06 No Notes: Memoria 2-22 (Same as: l 15:00: Zoloft) [place] 00 Insulin, 2015-06 No Notes: Memoria Aspart, 2-22 Roll in l Human 12:55: palms of [place] 00 hands gently; Do not shake vigorously . (Same as: NovoLOG) "single patient use only" WASTE: F/P - Black; E - Municipal Trash Bin Stable for 28 days at room temperatur e. Expires in days from ____Date heparin 2015-06 No Notes: Memoria sodium, 2-22 porcine l porcine 06:00: heparin Vin 2500 UNT/ML 00 Injectable Solution Albuterol 2015-06 No Notes: Memori a 0.833 MG/ML 2-22 (Same as: l / 03:00: Duoneb) [place] Ipratropium 00 Momence 0.167 MG/ML Inhalant Solution [DuoNeb] gabapentin 2015-06 No 300 mg, Mendoza janice 300 MG Oral 2-22 Route: PO, l Capsule 03:00: Drug form: Herm naeem 00 CAP, Q12H, Dosing Weight 86.364, kg, (CrCl 30 - 59 ml/min), Start date: 06/10/16 21:00:00 SEROLOGY TECHNICIAN, Duration: 30 day, Stop date: 07/10/16 9:00:00 SEROLOGY TECHNICIAN divalproex 2015-06 No Notes: Memor ia sodium 2-22 (Same as: l 03:00: Depakote Vin 00 ER) Once daily dosing; indicated for migraines. Divalproe x sodium extended-r elease tab. Do not chew or crush. "Do Not Crush" Losartan 2015-06 No Notes: Memoria 2-22 (Same as: l 03:00: Cozaar) [place] 00 Insulin, 2015-06 No Notes: Memoria Aspart, 2-22 Roll in l Human 00:50: palms of hands gently; Do not shake vigorously . (Same as: NovoLOG) "single patient use only" WASTE: F/P - Black; E - [employer] Trash Bin Stable for 28 days at room temperatur e. Expires in days from ____Date Dextrose 2015-06 No 12.5 gm, Memor ia 50% Syringe 2-22 25 mL, l 00:50: Route: IVP, Drug Form: INJ, Dosing Weight 86.364, kg, PRN, PRN Blood Glucose Results, Start date: 06/10/16 18:50:00 SEROLOGY TECHNICIAN, Duration: 30 day, Stop date: 07/10/16 18:49:00 SEROLOGY TECHNICIAN Glucagon 2015-06 No 1 mg, Memoria 2-22 Route: IM, l 00:50: Drug form: PDR/INJ, PRN, Dosing Weight 86.364, kg, PRN Blood Glucose Results, Start date: 06/10/16 18:50:00 SEROLOGY TECHNICIAN, Duration: 30 day, Stop date: 07/10/16 18:49:00 SEROLOGY TECHNICIAN Hydralazine 2015-06 No Notes: Mendoza janice 2-22 [...] Weight 86.364, kg, Start date: 06/10/16 18:06:00 SEROLOGY TECHNICIAN, Stop date: 06/10/16 18:06:00 SEROLOGY TECHNICIAN hydrOXYzine 2015-06 No Notes: Mendoza janice pamoate 08-11 (Same as: l 23:00: Vistaril) Furosemide 2015-06 No 60 mg, Memor ia 08-11 Route: l 22:32: IVP, Drug form: INJ, ONCE, Dosing Weight 86.364, kg, Start date: 06/10/16 16:32:00 SEROLOGY TECHNICIAN, Stop date: 06/10/16 16:32:00 SEROLOGY TECHNICIAN Lasix 2015-06 No Notes: Memoria 08-11 (Same as: l 17:22: Lasix) MEDICATION WASTE Product Size: 40 mg Product Wasted: _0__ mg Albuterol 2015-06 No Notes: Memori a 0.833 MG/ML 08-11 (Same as: 17:22: Duoneb) Ipratropium 00 Momence 0.167 MG/ML Inhalant Solution [DuoNeb] Promethazin Yes 25 mg = 1 M emoria e 06-26 supp, NM, l Hydrochlori 14:45: Q6H, Jake gonzalez de [...] ermann [Reglan] 00 tab, 0 Refill(s) Erythromyci 2015-0 Yes = 1 tab, Me moria n [...] Rate: 125 l 0.9% IV 04:10: ml/hr, Vin 1,000 mL 00 Infuse over: 8 hr, Route: IV, Dosing Weight 63.636 kg, Total Volume: 1,000, Start date: 04/14/13 23:10:00, Duration: 30 day, Stop date: 05/14/13 23:09:00 morphine 2011-0 No Hung Murillo 5 mg, Me moria Sulfate 9-25 Marx Route: l 01:15: IVP, ONCE, Dosing Weight 58.636, kg, Priority: STAT, Start date: 03/14/12 20:15:00, Stop date: 03/14/12 20:15:00 Sodium 2012-0 No Hung Murillo 500 mL, Me moria Chloride 9-24 Marx Rate: 500 l 0.9% 23:45: ml/hr, [place] (Bolus) IV 00 Infuse 500 mL over: [...] 9-24 Marx Rate: l 0.9% 22:19: 1,000 [place] (Bolus) IV 00 ml/hr, 500 mL Infuse [...] insulin No Blake 10 unit, Mem oria 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 6-11 Deangelo 0.1 mL, l H 02:00: Route: Vin 00 SUB-Q, Drug form: INJ, Bedtime, Start date: 11/29/11 21:00:00, Duration: 30 day, Stop date: 12/28/11 21:00:00 Insulin No Blake 8 unit, Mendoza janice regular 6-11 Deangelo 0.08 mL, l 02:00: Route: [place] 00 SUB-Q, Drug form: SOLN, Bedtime, Start date: 11/29/11 21:00:00, Duration: 30 day, Stop date: 12/28/11 21:00:00 trazodone 2011-0 No Blake 200 mg, 2 Memoria 100 mg oral 6-11 Deangelo tab, l tablet 02:00: Route: PO, H ermann 00 Drug form: TAB, Bedtime, Start date: 11/29/11 21:00:00, Duration: 30 day, Stop date: 12/28/11 21:00:00 Geodon 2011-0 No Blake 120 mg, 3 Mem oria 6-11 Deangelo cap, l 02:00: Brisa Route: PO, Her braden 00 Drug form: CAP, Bedtime, Start date: 11/29/11 21:00:00, Duration: 30 day, Stop date: 12/28/11 21:00:00 amLODipine 2011- No Blake 5 mg, 1 M emoria 6-11 Deangelo tab, l 01:11: Brisa Route: PO, Her braden Drug form: TAB, ONCE, Priority: NOW, Start [...] 11/29/11 16:32:00, Stop date: 11/29/11 16:32:00 Tylenol 2011- No [place] 650 mg, 2 Mem oria 6-10 Omidvar tab, l 19:16: Route: PO, Drug form: TAB, Q4H, PRN Pain, Start date: 11/29/11 14:16:00, Duration: 30 day, Stop date: 12/29/11 14:15:00 insulin 2011- No Blake 14 unit, Mem oria 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 6-10 Deangelo 0.14 mL, l H 14:00: Route: [place] 00 SUB-Q, Drug form: INJ, Daily, Start date: 11/29/11 9:00:00, Duration: 30 day, Stop date: 12/28/11 9:00:00 Insulin 2011-0 No Blake 10 unit, Mem oria regular 6-10 Deangelo 0.1 mL, l 14:00: Route: SUB-Q, Drug form: SOLN, Daily, Start date: 11/29/11 9:00:00, Duration: 30 day, Stop date: 12/28/11 9:00:00 Effexor XR 2011-0 No Blake 75 mg, 1 Memoria 6-10 Deangelo cap, l 14:00: Route: PO, Her braden 00 Drug form: ERCAP, Daily, Start date: 11/29/11 9:00:00, Duration: 30 day, Stop date: 12/28/11 9:00:00 lisinopril 2011-0 No Blake 40 mg, 2 Memoria 6-10 Deangelo tab, l 14:00: Brisa Route: PO, Her braden 00 Drug form: TAB, Daily, Start date: 11/29/11 9:00:00, Duration: 30 day, Stop date: 12/28/11 9:00:00 benztropine 2011- No Blake 1 mg, 1 Memoria 6-10 Deangelo tab, l 14:00: Brisa Route: PO, Her braden 00 Drug form: TAB, BID, Start date: 11/29/11 9:00:00, Duration: 30 day, Stop date: 12/28/11 17:00:00 amLODipine No Blake 5 mg, 1 M emoria 6-10 Deangelo tab, l 14:00: Brisa Route: PO, Her braden 00 Drug form: TAB, Daily, Start date: 11/29/11 9:00:00, Duration: 30 day, Stop date: 12/28/11 9:00:00 insulin No Blake 10 unit, Mem oria aspart 6-10 Deangelo 0.1 mL, l 06:30: Route: Vin 00 SUB-Q, Drug form: SOLN, TID-Before Meals, PRN Blood Glucose Results, Start date: 11/29/11 1:30:00, Duration: 30 day, Stop date: 12/29/11 1:29:00 Dextrose No Blake 25 gm, 50 M emoria 50% Syringe 6-10 Deangelo mL, Route: l 06:30: [facility] IVP, Drug Herm naeem 00 Form: INJ, PRN, PRN Blood Glucose Results, Start date: 11/29/11 1:30:00, Duration: 30 day, Stop date: 12/29/11 1:29:00 glucagon 2011-0 No Blake 1 mg, Memor ia 6-10 Deangelo Route: IM, l 06:30: Brisa Drug form: braden 00 PDR/INJ, PRN, PRN Blood Glucose [...] mL, Route: l 04:01: Brown IVP, Drug [place] 00 form: INJ, ONCE, Priority: STAT, Start date: 11/28/11 23:01:00, Stop date: 11/28/11 23:01:00 Zofran No Nikki 4 mg, 2 Mendoza janice 6-10 Sarah mL, Route: l 02:31: Brown IVP, Drug [place] form: INJ, ONCE, Priority: STAT, Start date: 11/28/11 21:31:00, Stop date: 11/28/11 21:31:00 NS (Bolus) No Arif Domenico 1,000 mL, Memoria IV 1,000 mL 11-27 Rate: l 22:48: 1,000 Vni 00 ml/hr, Infuse over: 1 hr, Route: IV, Dosing Weight 57.273 kg, Total Volume: 1,000, Start date: 11/28/11 17:48:00, Duration: 30 day, Stop date: 12/28/11 17:47:00 NS (Bolus) No Arif Domenico 1,000 mL, Memoria IV 1,000 mL 11-27 Rate: l 20:36: 1,000 [place] 00 ml/hr, Infuse over: 1 hr, Route: IV, Dosing Weight 57.273 kg, Total Volume: 1,000, Start date: 11/28/11 15:36:00, Duration: 30 day, Stop date: 12/28/11 15:35:00 Ativan No Arif Domenico 2 mg, 1 Mem oria 6-09 mL, Route: l 20:35: IVP, Drug [place] 00 form: INJ, ONCE, Priority: STAT, Start date: 11/28/11 15:35:00, Stop date: 11/28/11 15:35:00 Novolin R Yes Hughes-Jason 8 unit, M emoria 100 3-30 [place] SUB-Q, l units/mL 17:47: Dawson Q12H, 2 He rmann injectable 42 Pu vial, solution Substituti on Allowed, SOLN Novolin N Yes Hughes-Jason 10 unit, Memoria 100 3-30 [place] SUB-Q, l units/mL 17:46: Dawson Bedtime, H ermann subcutaneou 27 Pu 10 ml, s injection Substituti on Allowed, SUSP Novolin N Yes Hughes-Jason 14 unit, Memoria 100 3-30 [place] SUB-Q, l units/mL 17:44: Eunice QAM, 1 Her braden subcutaneou 37 Pu vial, s injection Substituti on Allowed, SUSP magnesium 2011- No Hughes-Jason 400 mg, 1 Memoria oxide 3-30 [place] tab, l 14:55: [place] Route: PO, Her braden 00 Pu Drug form: TAB, ONCE, Priority: STAT, Start date: 09/18/11 9:55:00, Stop date: 09/18/11 9:55:00 Insulin 2011-0 No Hughes-Jason 8 unit, Mem oria regular 3-30 [place] 0.08 mL, l 14:22: Eunice Route: Vin 00 Pu SUB-Q, Drug form: SOLN, ONCE, Priority: STAT, Start date: 09/18/11 9:22:00, Stop date: 09/18/11 9:22:00 Lactated 2011-0 No Hughes-Jason 1,000 mL, Memoria Ringers 3-30 [place] Rate: l (Bolus) IV 14:16: Eunice 1,000 He rmann 1,000 mL 00 Pu ml/hr, Infuse over: 1 hr, Route: IV, Total Volume: 1,000, Bolus Dose, Priority: STAT, Start date: 09/18/11 9:16:00, Duration: 1 doses or times, Stop date: 09/18/11 10:15:00 Sodium 2011-0 No Hughes-Jason 1,000 mL, Me moria Chloride 3-30 [place] Rate: l 0.9% 14:06: Eunice 1,000 [place] (Bolus) IV 00 Pu ml/hr, 1000 mL Infuse over: 1 hr, Route: IV, kg, Total Volume: 1,000, [place]us Dose, Priority: STAT, Start date: 09/18/11 9:06:00, Duration: 1 doses or times, Stop date: 09/18/11 10:05:00 sulfamethox 2011-0 Yes Substituti Memoria azole 3-30 on Allowed l 14:04: Vin 58 Sodium 2011-0 No Hughes-Jason 1,000 mL, Me moria Chloride 3-30 [place] Rate: l 0.9% 13:56: Eunice 1,000 [place] (Bolus) IV 00 Pu ml/hr, 1000 mL [...] 3-21 Amelia cap, PO, l capsule 18:47: Leroy BID, 60 Her braden 19 cap, Substituti on Allowed, CAP clindamycin Yes Luna 300 mg, 2 Memoria 150 mg oral 3-21 Amelia cap, PO, l capsule 18:46: Zeeshan Q8H, 30 Her braden 55 cap, Substituti on Allowed, CAP Points Yes Luna 1 tab, PO, Memoria 10/325 oral 3-21 Amelia Q4H, PRN, l tablet 18:46: Leroy 30 tab, Herm naeem 36 Pain, Substituti on Allowed, Maintenanc e, TAB Points No Hollie Donavan 1 tab, Mendoza janice 10/325 oral 3-21 Mahi Route: PO, l tablet 09:00: Drug Form: Nidia nn 00 TAB, Q4H, Start date: 09/09/11 4:00:00, Duration: 30 day, Stop date: 10/09/11 0:00:00 Colace 100 2011-0 No [place] 100 mg, 1 Memoria mg oral 3-19 [place] cap, l capsule 22:00: Route: PO, Herm naeem Drug form: CAP, BID, Start date: 09/07/11 17:00:00, Duration: 30 day, Stop date: 10/07/11 9:00:00 enalapril 2011-0 No [place] 5 mg, 1 Mem oria 3-19 Omid[place] tab, l 15:30: Route: PO, [place] Drug form: TAB, Daily, Start date: 09/07/11 10:30:00, Duration: 30 day, Stop date: 10/07/11 9:00:00 flumazenil 2011- No Gayle 0.2 mg, 2 Memoria 3-19 Josefina mL, Route: l 14:19: [place] IVP, Drug Jake n 00 form: INJ, PRN, PRN Benzodiaze pine Reversal, Initial dose, Start date: 09/07/11 9:19:00, Duration: 1 day, Stop date: 09/08/11 9:18:00 naloxone No Gayle 0.04 mg, Me moria 3-19 Josefina 0.1 mL, l 14:19: [place] Route: IVP, Drug form: INJ, Q2MIN, PRN Narcotic Reversal, Start date: 09/07/11 9:19:00, Duration: 8 doses or times, Stop date: Limited # of times ondansetron No Gayle 4 mg, 2 Memoria 3-19 Josefina mL, Route: l 14:19: [place] IVP, Drug Jake n 00 form: INJ, ONCE, PRN Nausea & Vomiting, Start date: 09/07/11 9:19:00 hydromorpho No Gayle 0.5 mg, Memoria ne 3- Josefina 0.25 mL, l 14:19: [place] Route: IVP, Drug form: INJ, Q5Min, PRN Pain Score 4-6, Start date: 09/07/11 9:19:00, Duration: 5 doses or times, Stop date: Limited # of times acetaminoph No Gayle 15 mL, M emoria en-hydrocod 3-19 Josefina Route: PO, l one 325 14:19: [place] Drug Form: He rmann mg-10 mg/15 00 SOLN, Q4H, mL oral PRN Pain solution Score 4-6, Start date: 09/07/11 9:19:00, Duration: 1 day, Stop date: 09/08/11 8:00:00 Lactated 2011-0 No [place] 1,000 mL, Me moria Ringers IV - [place] Rate: 125 l 1,000 mL 14:06: ml/hr, [place] 00 Infuse over: 8 hr, Route: IV, Dosing Weight 68.182 kg, Total Volume: 1,000, Start date: 09/07/11 9:06:00, Duration: 30 day, Stop date: 10/07/11 9:05:00 clindamycin 2011- No Maximo R 600 mg, Memoria 3-19 Arias Route: l 13:31: IVPB, [place] 00 ONCE, Start date: 09/07/11 8:31:00, Stop [...] Omidvar tab, l 14:11: Route: PO, Vin 00 Drug form: ERTAB, ONCE, Start date: 09/05/11 9:11:00, Stop date: 09/05/11 9:11:00 Dulcolax 2012-0 No Charbel A 10 mg, 2 M emoria Laxative 3-17 Wong tab, l 04:00: Route: PO, [place] 00 Drug form: ECTAB, Daily, PRN Constipati [...] Duration: 30 day, Stop date: 10/04/11 18:10:00 Points 2011-0 No Mahammad 1 tab, Memori a 10/325 [...] Kavon mL, Route: l 14:50: IVP, Drug [place] 00 form: INJ, ONCE, PRN Nausea & Vomiting, Start date: 09/04/11 9:50:00, Duration: 1 doses or times, Stop date: Limited # of times ropivacaine No Rosalino Dosing: Memoria 0.2% in NS 3-16 Kavon 10cc/hr, l - site 1 14:50: Route: Vin 400 mL 00 NERVE BLOCK, Start date: 09/04/11 9:50:00 400 mL, Duration: 30 day, Stop date: 10/04/11 9:49:00 naloxone No Rosalino 0.04 mg, Me moria 3-16 Kavon 0.1 mL, l 14:50: Route: [place] IVP, Drug form: INJ, Q2MIN, PRN Narcotic Reversal, Start date: 09/04/11 9:50:00, Duration: 30 day, Stop date: 10/04/11 9:49:00 Points No Bsimark 1 tab, Memoria 10/325 oral 16 Omidvar Route: PO, l tablet 14:49: Drug Form: Nidia nn 00 TAB, Q4H, PRN Pain, Start date: 09/04/11 9:49:00, Stop date: 10/04/11 9:48:00 labetalol No Gregory F 5 mg, Mendoza janice 3-16 [place] Route: IV, l 14:40: ONCE, [place] 00 Start date: 09/04/11 9:40:00, Stop date: 09/04/11 9:40:00 ondansetron 0 No Hollie 4 mg, 2 Me moria 3-16 Beck mL, Route: l 13:37: [place] IVP, Drug Nidia nn 00 form: INJ, ONCE, PRN Nausea & Vomiting, Start date: 09/04/11 8:37:00 naloxone No Hollie 0.04 mg, Mendoza janice 3-16 Beck 0.1 mL, l 13:37: [place] Route: Vin 00 IVP, Drug form: INJ, Q2MIN, PRN Narcotic Reversal, Start date: 09/04/11 8:37:00, Duration: 8 doses or times, Stop date: Limited # of times meperidine No Hollie 12.5 mg, Me moria 3-16 Beck 0.5 mL, l 13:37: [place] Route: [place] 00 IVP, Drug form: INJ, Q30Min, PRN [...] 1 day, Stop date: 09/05/11 8:36:00 hydromorpho No Rosalino 0.5 mg, Memoria ne 3-16 Kavon 0.25 mL, l 13:37: Route: Vin 00 IVP, Drug form: INJ, Q5Min, PRN Pain Score 4-6, Start date: 09/04/11 8:37:00, Duration: 5 doses or times, Stop date: Limited # of times clindamycin No Eber L 600 mg, 4 Memoria 3-15 Anabelle mL, Route: l 16:00: IVPB, Vin 00 [id number], Start date: 09/03/11 11:00:00, Duration: 30 day, Stop date: 10/03/11 8:00:00 potassium 2011-0 No [place] 40 mEq, 2 M emoria chloride 3-15 Omidvar tab, l 13:39: Route: PO, [place] 00 Drug form: ERTAB, ONCE, Start date: 09/03/11 8:39:00, Stop date: 09/03/11 8:39:00 Points 5/325 2011-0 No Rosalino 1 tab, M emoria oral tablet 3-15 Kavon Route: PO, l 05:00: Drug Form: [place] 00 TAB, Q4H, Start date: 09/03/11 0:00:00, [...] Anabelle cap, l 17:00: Route: PO, Vin Drug form: ERCAP, Daily, Give qAM after today's dose., Start date: 09/02/11 12:00:00, Duration: 30 day, Stop date: 10/02/11 9:00:00 Points 5/325 2011-0 No Rosalino 1 tab, M emoria oral tablet 3-14 Kavon Route: PO, l 16:25: Drug Form: [place] 00 TAB, Q4H, PRN Pain, Start date: [...] 3-14 Anabelle Route: l 14:00: IVPB, Drug [place] 00 form: INJ, [id number], Start date: 09/02/11 9:00:00, Duration: 30 day, Stop date: 10/01/11 21:00:00 clindamycin 2011- No Eber L 600 mg, 4 Memoria (SCIP) 3-14 Anabelle mL, Route: l 10:00: IVPB, [place] 00 [id number], Start date: 09/02/11 5:00:00, Duration: 3 doses or times, Stop date: 09/02/11 21:00:00 clindamycin 2011- No Yury 600 mg, 4 Memoria (SCIP) 3-14 Silverio mL, Route: l 04:00: [place] IVPB, [place] 00 [id number], Start date: 09/01/11 23:00:00, Duration: 3 doses or times, Stop date: 09/02/11 15:00:00 insulin 2011-0 No [place] 15 unit, 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 3-14 Omidvar 0.15 mL, l H 02:00: [...] 3-14 Barbra Route: l 01:07: Feliciano IVP, [place] 00 Q5Min, PRN Elevated BP, Start date: 09/01/11 20:07:00, Duration: 4 doses or times, Stop date: Limited # of times hydromorpho No Mariaelena-Corea 0.5 mg, Memoria ne 3-14 Barbra Route: l 01:07: Feliciano IVP, [place] 00 Q5Min, PRN Pain Score 4-6, Start date: 09/01/11 20:07:00, Duration: 5 doses or times, Stop date: Limited # of times naloxone No Mariaelena-Corea 0.04 mg, Memoria 3-14 Barbra Route: l 01:07: Feliciano IVP, [place] 00 Q2MIN, PRN Narcotic Reversal, Start date: 09/01/11 20:07:00, Duration: 8 doses or times, Stop date: Limited # of times flumazenil No Mariaelena-Corea 0.2 mg, Memoria 3-14 Barbra Route: l 01:07: Feliciano IVP, PRN, [place] 00 PRN Benzodiaze pine Reversal, Initial dose, Start date: 09/01/11 20:07:00, Duration: 30 day, Stop date: 10/01/11 20:06:00 ondansetron No Mariaelena-Corea 4 mg, Memoria 3-14 Barbra Route: l 01:07: Feliciano IVP, ONCE, [place] 00 PRN Nausea & Vomiting, Start date: 09/01/11 20:07:00 vancomycin No Mele 1 gm, Mem oria 3-14 Gauvain Route: l 01:00: IVPB, Drug form: INJ, [id number], Start date: 09/01/11 20:00:00, Duration: 30 day, Stop date: 10/01/11 8:00:00 Lactated No Charbel A 1,000 mL, Memoria Ringers IV 3-14 Wong Rate: 125 l 1,000 mL 00:55: ml/hr, Infuse over: 8 hr, Route: IV, Dosing Weight 68.2 kg, Total Volume: 1,000, Start date: 09/01/11 19:55:00, Duration: 30 day, Stop date: 10/01/11 19:54:00 vancomycin No Missael 1 gm, Memor ia 3-14 Movva Route: l 00:00: IVPB, Drug form: INJ, [id number], Start date: 09/01/11 19:00:00, Duration: 30 day, Stop date: 10/01/11 7:00:00 insulin 2011-0 No Missael 6 unit, Memori a aspart 3-13 Movva 0.06 mL, l 23:23: Route: [place] SUB-Q, Drug form: SOLN, TID-Before Meals, PRN Blood Glucose Results, Start date: 09/01/11 18:23:00, Duration: 30 day, Stop date: 10/01/11 18:22:00 glucagon 2011-0 No Missael 1 mg, Memoria 3-13 Movva Route: IM, l 23:23: Drug form: [place] PDR/INJ, PRN, PRN Blood Glucose Results, Start date: 09/01/11 18:23:00, Duration: 30 day, Stop date: 10/01/11 18:22:00 Dextrose 2011-0 No Missael 25 gm, 50 Mem oria 50% Syringe 3-13 Movva mL, Route: l 23:23: IVP, Drug Vin 00 Form: INJ, PRN, PRN Blood Glucose Results, Start date: 09/01/11 18:23:00, Duration: 30 day, Stop date: 10/01/11 18:22:00 morphine 2011-0 No Daja Shannan 2 mg, 1 M emoria Sulfate 3-13 Beni mL, Route: l 21:14: IVP, Drug Vin 00 form: INJ, Q4H, PRN Severe Pain, Start date: 09/01/11 16:14:00, Stop date: 10/01/11 16:13:00 Lactated 2011-0 No Cesar 1,000 mL, Me moria Ringers IV 3- Manuel Alvaro Rate: 100 l 1,000 mL 19:03: ml/hr, [place] 00 Infuse over: 10 hr, Route: IV, Dosing Weight 68.182 kg, Total Volume: 1,000, Start date: 09/01/11 14:03:00, Duration: 30 day, Stop date: 10/01/11 14:02:00 morphine 2011-0 No [place] 4 mg, 1 Memori a Sulfate 3-13 Madden mL, Route: l 17:13: Gurinder IVP, Drug Jake n form: INJ, ONCE, Start date: 09/01/11 12:13:00, Stop date: 09/01/11 12:13:00 Lactated 2011-0 No [place] 2,000 mL, Mendoza janice Ringers 3-13 [place] Rate: 100 l (Bolus) IV 15:42: Gurinder ml/hr, Her braden 2,000 mL 00 Infuse over: 20 hr, Route: IV, Dosing Weight 68.18 kg, Total Volume: 2,000, Start date: 09/01/11 10:42:00, Duration: 1 doses or times, Stop date: 09/02/11 6:41:00 Insulin 2011- No [place] 8 unit, Memoria regular 3-13 Madden 0.08 mL, l 15:28: Gurinder Route: [place] 00 SUB-Q, Drug form: SOLN, ONCE, Priority: STAT, Start date: 09/01/11 10:28:00, Stop date: 09/01/11 10:28:00 Sodium 2011- No [place] 1,000 mL, Memori a Chloride 3-13 Madden Rate: l 0.9% 14:53: Gurinder 1,000 Vin (Bolus) IV 00 ml/hr, 1,000 mL Infuse over: 1 hr, Route: IV, Dosing Weight 68.18 kg, Total Volume: 1,000, [place]us Dose, Priority: STAT, Start date: 09/01/11 9:53:00, Duration: 1 doses or times, Stop date: 09/01/11 10:52:00 morphine 2011- No Ju 4 mg, 1 Mem oria [...] L 1,000 mL, M emoria Chloride 3-13 [place] Rate: l 0.9% 10:41: 1,000 Vin (Bolus) IV 00 ml/hr, 1000 mL Infuse over: 1 hr, Route: IV, Dosing Weight 68.182 kg, Total Volume: 1,000, [place] Dose, Priority: STAT, Start date: 09/01/11 5:41:00, Duration: 1 doses or times, Stop date: 09/01/11 6:40:00 ondansetron 2011-0 No Bee L 4 mg, Memoria 3- [place] Route: l 09:06: IVP, Drug [place] 00 form: INJ, ONCE, Priority: STAT, Start date: 09/01/11 4:06:00, Stop date: 09/01/11 4:06:00 morphine 2011-0 No Bee L 4 mg, Mem oria Sulfate - [place] Route: l 09:06: IVP, ONCE, [place] 00 Priority: STAT, Start date: 09/01/11 4:06:00, Stop date: 09/01/11 4:06:00 Sodium 2011-0 No Bee L 1,000 mL, M emoria Chloride - [place] Rate: l 0.9% 08:42: 1,000 [place] (Bolus) IV 00 ml/hr, 1000 mL Infuse over: 1 hr, Route: IV, Dosing Weight 68.182 kg, Total Volume: 1,000, [place] Dose, Priority: STAT, Start date: 09/01/11 3:42:00, Duration: 1 doses or times, Stop date: 09/01/11 4:41:00 Insulin 2011-0 No Bee L 8 unit, Me moria regular 08-31 [place] 0.08 mL, l 08:30: Route: [place] 00 IVP, Drug form: SOLN, ONCE, Priority: STAT, Start date: 09/01/11 3:30:00, Stop date: 09/01/11 3:30:00 Sodium 2011-0 No Bee L 1,000 mL, M emoria Chloride - [place] Rate: l 0.9% 07:29: 1,000 Vin (Bolus) IV 00 ml/hr, 1,000 mL Infuse over: 1 hr, Route: IV, Dosing Weight 68.182 kg, Total Volume: 1,000, [place] Dose, Priority: STAT, Start date: 09/01/11 2:29:00, Duration: 1 doses or times, Stop date: 09/01/11 3:28:00 potassium No Velásquez Noam 40 mEq, 2 Memoria chloride 3-04 Akmal tab, l 15:00: Route: PO, Vin 00 Drug form: ERTAB, BID, Start date: [...] Substituti on Allowed, TAB Novolin N Yes Velsáquez Noam 18 Units, Memoria 100 3-04 [place] SUB-Q, l units/mL 14:42: BID, 3 Vin subcutaneou 04 vial, 3, s injection 3, Substituti on Allowed, SUSP insulin Yes Velásquez Noam 5 Units, Memoria regular 3-04 [place]km[place] SUB-Q, l human 14:40: TID, 30 [place] recombinant 10 vial, 3, 100 3, units/mL Substituti injectable on solution Allowed, before breakfast lunch and dinner, SOLNbefore breakfast lunch and dinner potassium No Velásquez Noam 20 mEq, Memoria chloride 3-04 Akmal 100 mL, l 14:00: Route: Vin 00 IVPB, Drug form: INJ, Q2H, Start [...] Akmal mL, Route: l 12:26: IVPB, Drug [place] 00 form: INJ, ONCE, Total dose = [...] Akmal mL, Route: l 13:26: IVPB, Drug [place] form: INJ, ONCE, Total dose = 2 [...] 3-02 Akmal tab, l 15:00: Route: PO, [place] 00 Drug form: TAB, Daily, Start date: [...] No [place] 4 mg, 2 Memori a 3- Rodriguez mL, Route: l 17:15: Ahmed IVP, Drug [place] 00 form: INJ, Q8H, PRN Nausea, Start date: 08/20/11 11:15:00, Duration: 30 day, Stop date: 09/19/11 11:14:00 insulin 2011-0 No Yury 10 unit, Mem oria 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 3- [place] Route: l H 16:00: [place] SUB-Q, Nidia nn 00 ONCE, Start date: 08/20/11 10:00:00, Stop date: 08/20/11 10:00:00 trazodone 2011-0 Yes 200 mg, 2 Mem oria 100 mg oral 3-01 tab, PO, l tablet 15:37: Bedtime, Vin 27 90 tab, Substituti on Allowed, TAB benztropine 2011- Yes 1 mg, 1 Mem oria 1 mg oral 3- tab, PO, l tablet 15:35: BID, 60 Vin 25 tab, Substituti on Allowed, TAB Geodon 60 2011- Yes 120 mg, 2 Mem oria mg oral 3-01 cap, PO, l capsule 15:35: Bedtime, Jake n 12 60 cap, Substituti on Allowed, CAP insulin No Yury 10 unit, Mem oria 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 3- [place] Route: l H 15:00: Rivero [...] Route: l 14:30: Rivero IV, ONCE, He rm Start date: 08/20/11 8:30:00, Stop date: 08/20/11 8:30:00 potassium 2011- No Yury 20 mEq, Me moria chloride 08-19 [place] 100 mL, l 14:00: Rivero Route: Nidia nn 00 IVPB, Drug form: INJ, Q2H, Total dose = 80 mEq, Start date: 08/20/11 8:00:00, Duration: 4 doses or times, Stop date: 08/20/11 14:00:00 potassium 2011- No Yury 15 mmol, M emoria phosphate 08-19 [place] Route: l 12:47: Rivero IVPB, PRN, H erm PRN Abnormal Lab Result, Start date: 08/20/11 6:47:00, Duration: 30 day, Stop date: 09/19/11 7:46:00 Insulin 2011- No Yury 6 unit, Mendoza janice regular 3-01 [place] 0.06 mL, l 09:38: Rivero Route: Nidia nn SUB-Q, Drug form: SOLN, ONCE, Start date: 08/20/11 3:38:00, Stop date: 08/20/11 3:38:00 Insulin 2011-0 No Velásquez Noam 10 unit, Memoria regular 3- Akmal SUB-Q, l 09:28: BID, Vin 23 Substituti on Allowed insulin 2011- No 10 unit, Memori a 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 3- SUB-Q, l H 09:26: BID, [place] 18 Substituti on Allowed NS 1,000 mL No Velásquez Noam 1,000 mL, Memoria 08-19 Akmal Rate: 150 l 09:06: ml/hr, [place] 00 Infuse over: 6.7 hr, Route: IV, Total Volume: 1,000, Start date: 08/20/11 3:06:00, Duration: 30 day, Stop date: 09/19/11 3:05:00 insulin No Yury 3 unit, Mendoza janice aspart [...] 30 day, Stop date: 09/18/11 9:00:00 insulin 2011-0 No Yury 18 unit, Mem oria 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 3-01 [place] 0.18 mL, l H 08:58: [...] No Hughes-Jason 4 mg, M emoria 08-19 [place] Route: l 07:42: [place] IVP, Drug Herm naeem 00 Pu form: INJ, ONCE, Priority: STAT, Start date: 08/20/11 1:42:00, Stop date: 08/20/11 1:42:00 GI cocktail 2011- No Hughes-Jason 30 ml, Memoria 08-19 [place] Route: PO, l 05:12: [place] Drug Form: Her braden 00 Pu SUSP, ONCE, STAT, Start date: 08/19/11 23:12:00, Stop date: 08/19/11 23:12:00 ondansetron 2011- No Hughes-Jason 4 mg, M emoria 08-19 [place] Route: PO, l 05:10: Drug form: Her braden 00 Pu TABDIS, ONCE, Priority: STAT, Start date: 08/19/11 23:10:00, Stop date: 08/19/11 23:10:00 Lactated No Hughes-Jason 1,000 mL, Memoria Ringers 08-19 [place] Rate: l (Bolus) IV 05:10: [place] 1,000 He rmann 1000 mL 00 Pu ml/hr, Infuse over: 1 hr, Route: IV, Total Volume: 1,000, [place] Dose, Priority: STAT, Start date: 08/19/11 23:10:00, Duration: 1 doses or times, Stop date: 08/20/11 0:09:00 Insulin 2011- No Hughes-Jason 7 unit, Mem oria regular 08-19 [place] 0.07 mL, l 04:15: Route: Vin 00 Pu SUB-Q, Drug form: SOLN, ONCE, Priority: STAT, Start date: 08/19/11 22:15:00, Stop date: 08/19/11 22:15:00 Geodon 60 2011- No Yury 60 mg, 1 M emoria mg oral 2-29 [place] cap, PO, l capsule 23:24: Rivero BID, 180 Vin 43 cap, Substituti on Allowed, CAP trazodone [...] 15:57:00 Reglan No William 10 mg, Memoria 2-29 Wong Route: IV, l 21:57: Pooja ONCE, Vin 00 Start date: 08/19/11 15:57:00, Stop date: 08/19/11 15:57:00 Lactated 2011- No William 1,000 mL, Me moria Ringers Rate: l (Bolus) IV 21:12: Pooja 1,000 Herm naeem 1000 mL 00 ml/hr, Infuse over: 1 hr, Route: IV, Total Volume: 1,000, Bolus Dose, Priority: STAT, Start date: 08/19/11 15:12:00, Duration: 1 doses or times, Stop date: 08/19/11 16:11:00 Vital Signs Vital Name Observation Time Observation Value Comments Source Systolic (mm Hg) 2016-07-30 14:00:00 Mendoza rial [place] Diastolic (mm Hg) 2016-07-30 14:00:00 Mem orial Vin Respitory Rate 2016-07-30 14:00:00 Memori al Vin Heart Rate 2016-07-30 14:00:00 Memorial Vin Temperature Oral (F) 2016-07-30 14:00:00 97.4 F [facility] [place] Systolic (mm Hg) 2016-07-30 10:45:00 Mendoza rial Vin Diastolic (mm Hg) 2016-07-30 10:45:00 Mem orial Vin Heart Rate 2016-07-30 10:45:00 [facility] [place] Temperature Oral (F) 2016-07-30 10:45:00 97.2 F [facility] [place] Respitory Rate 2016-07-30 10:45:00 Memori al Vin Heart Rate 2016-07-30 06:35:00 [facility] [place] Temperature Oral (F) 2016-07-30 06:35:00 97.0 F [facility] Vin Respitory Rate 2016-07-30 06:35:00 Memori al Vin Systolic (mm Hg) 2016-07-30 06:35:00 Mendoza rial [place] Diastolic (mm Hg) 2016-07-30 06:35:00 Mem orial Vin Weight 2016-07-24 02:13:00 [facility] [place] BMI Calculated 2016-07-24 02:13:00 Memori al [place] Height 2016-07-24 02:13:00 160.02 cm Memorial Vin Respitory Rate 2016-06-15 15:00:00 Memori al [place] Systolic (mm Hg) 2016-06-15 15:00:00 Mendoza rial [place] Diastolic (mm Hg) 2016-06-15 15:00:00 Mem orial [place] Respitory Rate 2016-06-15 14:00:00 Memori al Vin Systolic (mm Hg) 2016-06-15 14:00:00 Mendoza rial Vin Diastolic (mm Hg) 2016-06-15 14:00:00 Mem orial [place] Respitory Rate 2016-06-15 13:29:00 Memori al [place] Systolic (mm Hg) 2016-06-15 13:29:00 Mendoza rial [place] Diastolic (mm Hg) 2016-06-15 13:29:00 Mem orial Vin Temperature Oral (F) 2016-06-14 10:56:00 97.1 F [facility] Vin Temperature Oral (F) 2016-06-14 06:55:00 97.1 F [facility] Vin Temperature Oral (F) 2016-06-12 10:00:00 96.8 F [facility] Vin Weight 2016-06-11 04:25:00 [facility] [place] Height 2016-06-11 04:25:00 160.02 cm [facility] Vin BMI Calculated 2016-06-11 04:25:00 Memori al [place] Heart Rate 2016-06-11 02:04:00 [facility] [place] Heart Rate 2016-06-11 00:00:00 [facility] Vin Heart Rate 2016-06-10 20:30:00 [facility] [place] Weight 2016-06-10 16:04:00 [facility] Vin BMI Calculated 2016-06-10 16:04:00 Memori al Vin Height 2016-06-10 16:04:00 160.02 cm [facility] [place] Temperature Oral (F) 2014-06-26 15:12:00 98.0 F [facility] [place] Systolic (mm Hg) 2014-06-26 15:12:00 Mendoza rial [place] Heart Rate 2014-06-26 15:12:00 [facility] [place] Diastolic (mm Hg) 2014-06-26 15:12:00 Mem orial [place] Respitory Rate 2014-06-26 15:12:00 Memori al [place] Systolic (mm Hg) 2014-06-26 13:53:00 Mendoza rial Vin Diastolic (mm Hg) 2014-06-26 13:53:00 Mem orial Vin Respitory Rate 2014-06-26 13:53:00 Memori al Vin Temperature Oral (F) 2014-06-26 13:53:00 98.0 F [facility] [place] Temperature Oral (F) 2014-06-26 12:37:00 98.2 F [facility] Vin Respitory Rate 2014-06-26 12:37:00 Memori al Vin Systolic (mm Hg) 2014-06-26 12:37:00 [facility] [place] Diastolic (mm Hg) 2014-06-26 12:37:00 [facility] [place] Heart Rate 2014-06-26 09:21:00 [facility] [place] Heart Rate 2014-06-26 06:08:00 [facility] [place] Height 2014-06-26 05:35:00 154.94 cm [facility] Weight 2014-06-26 05:35:00 [facility] BMI Calculated 2014-06-26 05:35:00 [facility] Respitory Rate 2013-04-15 06:10:00 [facility] Diastolic (mm Hg) 2013-04-15 06:10:00 [facility] Heart Rate 2013-04-15 06:10:00 [facility] Systolic (mm Hg) 2013-04-15 06:10:00 [facility] Temperature Oral (F) 2013-04-15 06:10:00 98.7 F [facility] Respitory Rate 2013-04-15 05:37:00 [facility] [place] Diastolic (mm Hg) 2013-04-15 05:37:00 [facility] [place] Systolic (mm Hg) 2013-04-15 05:37:00 [facility] Temperature Oral (F) 2013-04-15 05:37:00 98.2 F [facility] [place] Heart Rate 2013-04-15 05:37:00 [facility] [place] Height 2013-04-15 02:06:00 160.02 cm [facility] Weight 2013-04-15 02:06:00 [facility] [place] Temperature Oral (F) 2013-04-15 02:06:00 98.6 F [facility] [place] Respitory Rate 2013-04-15 02:06:00 [facility] Heart Rate 2013-04-15 02:06:00 [facility] Diastolic (mm Hg) 2013-04-15 02:06:00 [facility] Systolic (mm Hg) 2013-04-15 02:06:00 [facility] [place] Weight 2012-03-14 21:33:00 [facility] [place] Systolic (mm Hg) 2011-12-01 00:33:00 [facility] [place] Respitory Rate 2011-12-01 00:33:00 [facility] Heart Rate 2011-12-01 00:33:00 [facility] [place] Diastolic (mm Hg) 2011-12-01 00:33:00 [facility] Temperature Oral (F) 2011-12-01 00:33:00 99.6 F [facility] [place] Diastolic (mm Hg) 2011-11-30 21:00:00 [facility] [place] Heart Rate 2011-11-30 21:00:00 [facility] Respitory Rate 2011-11-30 21:00:00 [facility] Systolic (mm Hg) 2011-11-30 21:00:00 [facility] Temperature Oral (F) 2011-11-30 21:00:00 99.8 F [facility] [place] Respitory Rate 2011-11-30 16:30:00 [facility] [place] Systolic (mm Hg) 2011-11-30 16:30:00 [facility] [place] Diastolic (mm Hg) 2011-11-30 16:30:00 [facility] [place] Heart Rate 2011-11-30 16:30:00 [facility] Temperature Oral (F) 2011-11-30 16:30:00 99.8 F [facility] [place] Weight 2011-11-29 11:40:00 [facility] [place] Height 2011-11-29 11:40:00 157.48 cm [facility] [place] Weight 2011-11-28 17:16:00 [facility] [place] Weight 2011-09-18 13:30:00 [facility] Height 2011-09-18 13:30:00 154.94 cm [facility] [place] Heart Rate 2011-09-09 13:31:00 [facility] [place] Systolic (mm Hg) 2011-09-09 13:02:00 [facility] Diastolic (mm Hg) 2011-09-09 13:02:00 [facility] [place] Respitory Rate 2011-09-09 13:02:00 [facility] [place] Temperature Oral (F) 2011-09-09 13:02:00 97.5 F [facility] [place] Diastolic (mm Hg) 2011-09-09 08:00:00 [facility] [place] Heart Rate 2011-09-09 08:00:00 [facility] [place] Temperature Oral (F) 2011-09-09 08:00:00 98.6 F [facility] [place] Respitory Rate 2011-09-09 08:00:00 [facility] [place] Systolic (mm Hg) 2011-09-09 08:00:00 [facility] [place] Respitory Rate 2011-09-09 04:55:00 [facility] [place] Diastolic (mm Hg) 2011-09-09 04:55:00 [facility] Vin Systolic (mm Hg) 2011-09-09 04:55:00 [facility]za [facility] [place] Heart Rate 2011-09-09 04:55:00 [facility] Temperature Oral (F) 2011-09-09 00:55:00 98.7 F [facility] [place] Weight 2011-09-01 19:59:00 [facility] [place] Height 2011-09-01 19:59:00 154.94 cm [facility] [place] Height 2011-09-01 07:01:00 154.94 cm [facility] [place] Weight 2011-09-01 07:01:00 [facility] Respitory Rate 2011-08-23 18:00:00 [facility] Heart Rate 2011-08-23 18:00:00 [facility] Systolic (mm Hg) 2011-08-23 18:00:00 Mendoza rial Vin Diastolic (mm Hg) 2011-08-23 18:00:00 [facility] Vin Temperature Oral (F) 2011-08-23 18:00:00 97.7 F [facility] [place] Heart Rate 2011-08-23 14:24:00 [facility] [place] Temperature Oral (F) 2011-08-23 14:24:00 98.2 F [facility] Diastolic (mm Hg) 2011-08-23 14:24:00 [facility] Vin Systolic (mm Hg) 2011-08-23 14:24:00 [facility] [place] Respitory Rate 2011-08-23 14:24:00 [facility] [place] Systolic (mm Hg) 2011-08-23 11:15:00 Mendoza rial Vin Diastolic (mm Hg) 2011-08-23 11:15:00 [facility] Vin Temperature Oral (F) 2011-08-23 11:00:00 98.[address] [facility] 2011-08-23 11:00:00 [facility] Respitory Rate 2011-08-22 22:00:00 Blassveta Mckeonann Height 2011-08-20 09:12:00 154.94 cm [facility] Weight 2011-08-20 09:12:00 [facility] Height 2011-08-19 20:28:00 154.94 cm [facility] [place] Weight 2011-08-19 20:28:00 [facility] [place] Procedures Procedure Date / Time Performed Performing Clinician [facility] e Emergency department visit 2013-04-15 05:00:00 [facility] [place] for the evaluation and management of a [...] procedure) Therapeutic, prophylactic, 2013-04-15 05:00:00 [facility] [place] or diagnostic injection (specify substance or drug); each additional sequential intravenous push of a new substance/drug (List separately in addition to code for primary procedure) Therapeutic, prophylactic, 2013-04-15 05:00:00 [facility] [place] or diagnostic injection (specify substance or drug); intravenous push, single or initial substance/drug section [facility] Encounters Start End Encounter Admission Attending Care Care Encounter Source Date/Time Date/Time Type Type Clinicians Facility Department ID 2020-07-03 2020-07-03 Telephone Marshall WVIMELDA [id number] 00:00:00 00:00:00 Oz Sims [id number] [place] [id number] [place] [id number] nal 059 [facility] 2020-06-27 2020-06-27 Office JARON Olivares [id number] 10:05:43 11:00:00 Visit Oz MayJose F Levi [id number] [place] [id number] [id number] [facility] 059 [facility] 2020-01-25 2020-01-31 Inpatient 1 Rei Waldron [facility] [id number] [facility] 21:31:00 18:15:00 Rei Waldron 2016-07-23 2016-07-30 Outpatient Yaquelin [facility] [id number] 20:04:00 10:20:00 Luna 10 2016-06-10 2016-06-15 Outpatient Franck [facility] [id number] 10:02:00 12:23:00 Joe Yan 09 2014-06-25 2014-06-26 Outpatient Courtney [facility] [id number] 23:25:00 09:14:00 Atul 08 Cem 2013-04-14 2013-04-15 [facility] [id number] 21:04:00 01:45:00 07 [facility] 2013-04-14 2013-04-15 [facility] [id number] [facility] 21:04:00 01:45:00 07 [facility] 2013-04-14 2013-04-15 [facility] [id number] [facility] 21:04[facility] 2013-04-15 [facility] [id number] [facility] 21:04:00 01:45:00 07 [facility] 2013-04-14 2013-04-15 [facility] [id number] Memoria 21:04:00 01:45:00 07 [facility] Results Test Description Test Time [...] the main Lab for analysi s. Urine [id number] 11:32:13 Test Item Value Reference Range Interpretation [...] Escherichia coli C Urine Added by GL_SJM_UA_CUL_INDPOC [id number] 07:52:10 Test Item Value Reference Range Interpretation Comments Glucose POC (test 160 mg/dL 70-115 H If you con grain sampler your code = Glucose POC) patient critically ill, the Merlin-Accu Check Infrom II meter should not be used for Glucose determination. Draw a venous Glucose and send to the main Lab for analysis. POC [id number] 19:32:05 Test Item Value Reference Range Interpretation Comments Glucose POC (test 184 mg/dL 70-115 H If you con grain sampler your code = Glucose POC) patient critically ill, the Merlin-Accu Check Infrom II meter should not be used for Glucose determination. Draw a venous Glucose and send to the main Lab for analysis. POC [id number] 17:16:35 Test Item Value Reference Range Interpretation Comments Glucose POC (test 281 mg/dL 70-115 H Notify RN or MDIf you code = Glucose POC) consider your patient critically ill, the Merlin-Accu Chec k Infrom II meter should not be used for Glucos e determination. Draw a venous Glucose and send to the main Lab for analysis. POC [id number] 12:00:38 Test Item Value Reference Range Interpretation Comments Glucose POC (test 138 mg/dL 70-115 H Notify RN or MDIf you code = Glucose POC) consider your patient critically ill, the Merlin-Accu Chec k Infrom II meter should not be used for Glucos e determination. Draw a venous Glucose and send to the main Lab for analysis. POC [id number] 07:41:32 Test Item Value Reference Range Interpretation Comments Glucose POC (test 206 mg/dL 70-115 H Notify RN or MDIf you code = Glucose POC) consider your patient critically ill, the Merlin-Accu Chec k Infrom II meter should not be used for Glucos e determination. Draw a venous Glucose and send to the main Lab for analysis. Urinalysis [id number] 21:07:21 Test Item Value Reference Range Interpretation Comments UA WBC (test code = UA WBC) TNTC 0-5 A UA RBC (test code = UA RBC) 6-10 0-5 A UA Bacteria (test code = UA Bacteria) Profuse A UA Squam Epithelial (test code = UA 6-10 A Squam Epithelial) Urinalysis with Culture, if [id number] 20:35:14 Test Item Value Reference Range Interpretation [...] Micro Indicated Not Indicated A Ind?) POC [id number] 19:06:34 Test Item Value Reference Range Interpretation Comments Glucose POC (test 207 mg/dL 70-115 H If you con grain sampler your code = Glucose POC) patient critically ill, the Merlin-Accu Check Infrom II meter should not be used for Glucose determination. Draw a venous Glucose and send to the main Lab for analysis. POC [id number] 17:12:03 Test Item Value Reference Range Interpretation Comments Glucose POC (test 173 mg/dL 70-115 H Notify RN or MDIf you code = Glucose POC) consider your patient critically ill, the Merlin-Accu Chec k Infrom II meter should not be used for Glucos e determination. Draw a venous Glucose and send to the main Lab for analysis. POC [id number] 11:58:01 Test Item Value Reference Range Interpretation Comments Glucose POC (test 289 mg/dL 70-115 H Notify RN or MDIf you code = Glucose POC) consider your patient critically ill, the Merlin-Accu Chec k Infrom II meter should not be used for Glucos e determination. Draw a venous Glucose and send to the main Lab for analysis. POC [id number] 08:19:37 Test Item Value Reference Range Interpretation Comments Glucose POC (test 201 mg/dL 70-115 H Notify RN or MDIf you code = Glucose POC) consider your patient critically ill, the Merlin-Accu Chec k Infrom II meter should not be used for Glucos e determination. Draw a venous Glucose and send to the main Lab for analysis. POC [id number] 20:37:35 Test Item Value Reference Range Interpretation Comments Glucose POC (test 272 mg/dL 70-115 H If you con grain sampler your code = Glucose POC) patient critically ill, the Merlin-Accu Check Infrom II meter should not be used for Glucose determination. Draw a venous Glucose and send to the main Lab for analysis. POC [id number] 17:23:05 Test Item Value Reference Range Interpretation Comments Glucose POC (test 229 mg/dL 70-115 H If you con grain sampler your code = Glucose POC) patient critically ill, the Merlin-Accu Check Infrom II meter should not be used for Glucose determination. Draw a venous Glucose and send to the main Lab for analysis. POC [id number] 12:01:01 Test Item Value Reference Range Interpretation Comments Glucose POC (test 155 mg/dL 70-115 H If you con grain sampler your code = Glucose POC) patient critically ill, the Merlin-Accu Check Infrom II meter should not be used for Glucose determination. Draw a venous Glucose and send to the main Lab for analysis. POC [id number] 08:07:32 Test Item Value Reference Range Interpretation Comments Glucose POC (test 248 mg/dL 70-115 H If you con grain sampler your code = Glucose POC) patient critically ill, the Merlin-Accu Check Infrom II meter should not be used for Glucose determination. Draw a venous Glucose and send to the main Lab for analysis. IG [id number] 06:50:39 Test Item Value Reference Range Interpretation Comments IG (test code = IG) 0.7 % 0.0-5.0 IG Abs (test code = IG Abs) 0 x10 N Complete Blood Count with [id number] 06:50:38 Test Item Value Reference Range Interpretation [...] code = IPF) 0 % N Automated [id number] 06:50:38 Test Item Value Reference Range Interpretation Comments Neutro Auto (test code = Neutro 50.3 % 36.0-70.0 Auto) Lymph Auto (test code = Lymph Auto) 38.6 % 12.0-44.0 [place] Auto (test code = [place] Auto) 7.3 % 0.0-11.0 Eos, Auto (test code = Eos, Auto) 2.4 % 0.0-7.0 Basophil Auto (test code = Basophil 0.7 % 0.0-2.0 Auto) Neutro Absolute (test code = Neutro 3.0 x10 1.6-7.4 Absolute) Lymph Absolute (test code = Lymph 2.28 x10 .50-4.60 Absolute) [place] Absolute (test code = [place] .43 x10 .00-1.20 Absolute) Eos Absolute (test code = Eos 0.14 x10 0.00-0.74 Absolute) Baso Absolute (test code = Baso 0.04 x10 0.00-0.21 Absolute) Basic Metabolic [id number] 05:38:20 Test Item Value Reference Range Interpretation [...] = Lipemia) 0 mg/dL 8-11 Basic Metabolic [id number] 05:38:20 Test Item Value Reference Range Interpretation [...] = 0 mg/dL 8-11 Lipemia) Basic Metabolic [id number] 05:38:20 Test Item Value Reference Range Interpretation [...] code = 0 mg/dL 8-11 Lipemia) POC [id number] 20:28:33 Test Item Value Reference Range Interpretation Comments Glucose POC (test 169 mg/dL 70-115 H If you con grain sampler your code = Glucose POC) patient critically ill, the Merlin-Accu Check Infrom II meter should not be used for Glucose determination. Draw a venous Glucose and send to the main Lab for analysis. POC [id number] 16:39:30 Test Item Value Reference Range Interpretation Comments Glucose POC (test 103 mg/dL 70-115 If you con grain sampler your code = Glucose POC) patient critically ill, the Merlin-Accu Check Infrom II meter should not be used for Glucose determination. Draw a venous Glucose and send to the main Lab for analysis. RPR [id number] 12:08:56 Test Item Value Reference Range Interpretation Comments RPR Qual (test code = RPR Qual) Non-Reactive Non-Reactive Reactive Control (test code = Reactive Reactive Control) Weak Reactive Control (test Weak Reactive code = Weak Reactive Control) Non-Reactive Control (test code Non-Reactive = Non-Reactive Control) Lot # (test code = Lot #) [id number] N Expiration Dt (test code = 03-20-2021 N Expiration Dt) POC [id number] 11:52:31 Test Item Value Reference Range Interpretation Comments Glucose POC (test 250 mg/dL 70-115 H If you con grain sampler your code = Glucose POC) patient critically ill, the Merlin-Accu Check Infrom II meter should not be used for Glucose determination. Draw a venous Glucose and send to the main Lab for analysis. POC [id number] 07:55:29 Test Item Value Reference Range Interpretation Comments Glucose POC (test 205 mg/dL 70-115 H If you con grain sampler your code = Glucose POC) patient critically ill, the Merlin-Accu Check Infrom II meter should not be used for Glucose determination. Draw a venous Glucose and send to the main Lab for analysis. Lipid [id number] 05:46:04 Test Item Value Reference Range Interpretation [...] LDL/HDL Ratio=L DL Calc/HDL Chol Thyroid Stimulating [id number] 05:46:04 Test Item Value Reference Range Interpretation Comments TSH (test code = TSH) 3.274 mcIU/mL 0.550-4.780 Hemoglobin [id number] 05:41:08 Test Item Value Reference Range Interpretation Comments Hemoglobin A1c (test code 7.6 % 4.0-5.8 H Di abetic >=6.5 = Hemoglobin A1c) %Prediabet es 5.7-6.4 %Normal <5.7 % Hepatitis B Surface [id number] 21:19:36 Test Item Value Reference Range Interpretation Comments Hep Bs Ag (test code = Hep Bs Non-Reactive Non-Reactive Ag) Novel Coronavirus SARS-CoV-2, [id number] 11:16:16 Test Item Value Reference Range Interpretation [...] Emergency Use Authorization." Novel Coronavirus (COVID-19), EMANUEL [id number] 11:11:24TNPTest not sent and performed at [facility].Rapid was perfomed in Microbiology.Wrong covid test was ord ered.Urine [id number] 00:17:49 Test Item Value Reference Range Interpretation [...] Propoxyphene Confirmation wi thin 7 days. Alcohol [id number] 00:17:29 Test Item Value Reference Range Interpretation Comments Ethanol Level 9.0 mg/dL N The pharmacolo gical (test code = response to blo od alcohol Ethanol Level) levels may va ry from individual to i ndividual. The fatal omkar ntration has been report ed to be >400 mg/dl. Comprehensive Metabolic [id number] 00:17:28 Test Item Value Reference Range Interpretation [...] = Lipemia) 0 g/dL 1-2 Comprehensive Metabolic [id number] 00:17:28 Test Item Value Reference Range Interpretation [...] = 0 g/dL 1-2 Lipemia) Comprehensive Metabolic [id number] 00:17:28 Test Item Value Reference Range Interpretation [...] ag e have not been validated by [facility] MDRD study and should be interpreted [...] ag e have not been validated by [facility] MDRD study and should be interpreted [...] g/dL 1-2 Lipemia) Complete Blood Count with [id number] 23:26:28 Test Item Value Reference Range Interpretation [...] code = IPF) 0 % N Automated [id number] 23:26:28 Test Item Value Reference Range Interpretation Comments Neutro Auto (test code = Neutro 67.1 % 36.0-70.0 Auto) Lymph Auto (test code = Lymph Auto) 23.3 % 12.0-44.0 [place] Auto (test code = [place] Auto) 5.8 % 0.0-11.0 Eos, Auto (test code = Eos, Auto) 2.3 % 0.0-7.0 Basophil Auto (test code = Basophil 0.8 % 0.0-2.0 Auto) Neutro Absolute (test code = Neutro 6.0 x10 1.6-7.4 Absolute) Lymph Absolute (test code = Lymph 2.10 x10 .50-4.60 Absolute) [place] Absolute (test code = [place] .52 x10 .00-1.20 Absolute) Eos Absolute (test code = Eos 0.21 x10 0.00-0.74 Absolute) Baso Absolute (test code = Baso 0.07 x10 0.00-0.21 Absolute) IG [id number] 23:26:28 Test Item Value Reference Range Interpretation Comments IG (test code = IG) 0.7 % 0.0-5.0 IG Abs (test code = IG Abs) 0 x10 N HERPES VIRUS ANTIBODY, [id number] 21:46:00 Test Item Value Reference Range Interpretation Comments HERPES VIRUS IGM (BEAKER) Negative SE E ATTACHMENT (test code = 1808) BLOOD [id number] 06:00:00 Test Item Value Reference Range Interpretation Comments CULTURE (BEAKER) (test No growth in 5 days code = 1095) BLOOD [id number] 06:00:00 Test Item Value Reference Range Interpretation Comments CULTURE (BEAKER) (test No growth in 5 days code = 1095) POCT-GLUCOSE [id number] 12:11:00 Test Item Value Reference Range Interpretation Comments POC-GLUCOSE METER 154 mg/dL 70-110 H TESTED AT [place] [address] ([facility]) (test code = [facility] Eduin [facility] 1538) [id number] POCT-GLUCOSE [id number] 07:53:00 Test Item Value Reference Range Interpretation Comments POC-GLUCOSE METER 87 mg/dL 70-110 TESTED AT [place] [address] ([facility]) (test code = [facility] [address] 1538) POCT-GLUCOSE [id number] 06:49:00 Test Item Value Reference Range Interpretation Comments POC-GLUCOSE METER 79 mg/dL 70-110 TESTED AT [place] [address] ([facility]) (test code = [facility] [address] 1538) COMPREHENSIVE METABOLIC [id number] 06:15:00 Test Item Value Reference Range Interpretation Comments TOTAL PROTEIN 5.1 gm/dL 6.0-8.3 L ([facility]) (test code = 770) ALBUMIN ([facility]) 2.2 g/dL 3.5-5.0 L (test code = 1145) ALKALINE PHOSPHATASE 78 U/L 40-150 ([facility]) (test code = 346) BILIRUBIN TOTAL 1.1 [...] S NOT APPLICABLE FOR DIALYSIS PATIEN TS. [id number] 06:11:00 Test Item Value Reference Range Interpretation Comments MAGNESIUM (BEAKER) (test code = 2.1 mg/dL 1.6-2.6 627) HEPATIC FUNCTION [id number] 06:11:00 Test Item Value Reference Range Interpretation [...] 256 U/L 5-34 H 353) ALT (SGPT) ([facility]) (test code = 513 U/L 6-55 H 347) [id number] 05:30:00 Test Item Value Reference Range Interpretation Comments FIBRINOGEN LEVEL ([facility]) (test 368 mg/dl 225-434 code = 658) [id number] 05:30:00 Test Item Value Reference Range Interpretation Comments PARTIAL THROMBOPLASTIN TIME 42.2 seconds 22.5-36.0 H ([facility]) (test code = 760) PROTHROMBIN [id number] 05:29:00 Test Item Value Reference Range Interpretation Comments PROTIME ([facility]) (test code = 14.8 seconds 11.7-14.7 H 759) INR ([facility]) (test code = 370) 1.2 <=5.9 RECOMMENDED COUMADIN/WARFARIN INR THERAPY RANGESSTANDARD DOSE: 2.0 - 3.0 Includes: PROPHYLAXIS forvenous thrombosis, systemic embolization; TREATMENT for venous thrombosis and/or pulmonary embolus.HIGH RISK: Target INR is 2.5-3.5 for patients with mechanical heart valves.POCT-GLUCOSE [id number] 21:09:00 Test Item Value Reference Range Interpretation Comments POC-GLUCOSE METER 178 mg/dL 70-110 H TESTED AT [place] [address] ([facility]) (test code = [place] 1538) [id number] POCT-GLUCOSE [id number] 17:18:00 Test Item Value Reference Range Interpretation Comments POC-GLUCOSE METER 178 mg/dL 70-110 H TESTED AT [place] [address] ([facility]) (test code = [place] [facility] 1538) [id number] POCT-GLUCOSE [id number] 13:48:00 Test Item Value Reference Range Interpretation Comments POC-GLUCOSE METER 150 mg/dL 70-110 H TESTED AT [place] [address] ([facility]) (test code = [place] [facility] 1538) [address] FACTOR 5 ACTIVITY (BLEEDING RISK)2017-01-06 10:04:00 Test Item Value Reference Range Interpretation Comments FACTOR V ACTIVITY ([facility]) (test code 90.0 % 60.0-150.0 = 665) Effective 10/24/2013: Reference Range Change-Adult onlyNew: 60.0-150.0 Previous: 50.0-150.0CYTOMEGALOVIRUS ANTIBODY, [id number] 09:42:00 Test Item Value Reference Range Interpretation Comments CYTOMEGALOVIRUS IGM ANTIBODY Negative (BEAKER) (test code = 816) HERPES VIRUS ANTIBODY, [id number] 08:59:00 Test Item Value Reference Range Interpretation Comments 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 G 1807) CYTOMEGALOVIRUS ANTIBODY, [id number] 08:59:00 Test Item Value Reference Range Interpretation Comments CYTOMEGALOVIRUS IGG ANTIBODY Positive (BEAKER) (test code = 790) EBV-VCA ANTIBODY, [id number] 08:59:00 Test Item Value Reference Range Interpretation Comments JASE-WALL VCA IGG (BEAKER) (test Positive code = 983) EBV-VCA ANTIBODY, [id number] 08:59:00 Test Item Value Reference Range Interpretation Comments JASE-WALL VCA IGM (BEAKER) (test Negative code = 984) POCT-GLUCOSE [id number] 07:59:00 Test Item Value Reference Range Interpretation Comments POC-GLUCOSE METER 81 mg/dL 70-[address] [facility] 6720 (BEAKER) (test code = [place] [address] 0968) COMPREHENSIVE METABOLIC [id number] 06:23:00 Test Item Value Reference Range Interpretation [...] S NOT APPLICABLE FOR DIALYSIS PATIEN TS. [id number] 06:17:00 Test Item Value Reference Range Interpretation Comments MAGNESIUM (BEAKER) (test code = 1.8 mg/dL 1.6-2.6 627) HEPATIC FUNCTION [id number] 06:17:00 Test Item Value Reference Range Interpretation [...] code = 779 U/L 6-55 H 347) [id number] 06:00:00 Test Item Value Reference Range Interpretation Comments FIBRINOGEN LEVEL (BEAKER) (test 390 mg/dl 225-434 code = 658) [id number] 06:00:00 Test Item Value Reference Range Interpretation Comments PARTIAL THROMBOPLASTIN TIME 40.2 seconds 22.5-36.0 H (BEAKER) (test code = 760) PROTHROMBIN [id number] 05:59:00 Test Item Value Reference Range Interpretation Comments PROTIME (BEAKER) (test code = 14.6 seconds 11.7-14.7 759) INR ([facility]) (test code = 370) 1.2 <=5.9 RECOMMENDED COUMADIN/WARFARIN INR THERAPY RANGESSTANDARD DOSE: 2.0 - 3.0 Includes: PROPHYLAXIS forvenous thrombosis, systemic embolization; TREATMENT for venous thrombosis and/or pulmonary embolus.HIGH RISK: Target INR is 2.5-3.5 for patients with mechanical heart valves.POCT-GLUCOSE [id number] 21:46:00 Test Item Value Reference Range Interpretation Comments POC-GLUCOSE METER 153 mg/dL 70-110 H TESTED AT [place] [address] ([facility]) (test code = [facility] 1538) [address] POCT-GLUCOSE [id number] 18:47:00 Test Item Value Reference Range Interpretation Comments POC-GLUCOSE METER 181 mg/dL 70-110 H TESTED AT [place] [address] ([facility]) (test code = [facility] 1538) [address] POCT-GLUCOSE [id number] 12:40:00 Test Item Value Reference Range Interpretation Comments POC-GLUCOSE METER 178 mg/dL 70-110 H TESTED AT [place] [address] ([facility]) (test code = [facility] 1538) [address] POCT-GLUCOSE [id number] 07:51:00 Test Item Value Reference Range Interpretation Comments POC-GLUCOSE METER 166 mg/dL 70-110 H TESTED AT [place] [address] ([facility]) (test code = [facility] 1538) [address] COMPREHENSIVE METABOLIC [id number] 03:26:00 Test Item Value Reference Range Interpretation Comments TOTAL PROTEIN 5.2 gm/dL 6.0-8.3 L (AKER) (test code = 770) ALBUMIN (AKER) 2.3 g/dL 3.5-5.0 L (test code = 1145) ALKALINE PHOSPHATASE 72 U/L 40-150 (AKER) (test code = 346) BILIRUBIN TOTAL 2.0 [...] S NOT APPLICABLE FOR DIALYSIS PATIEN TS. [id number] 03:22:00 Test Item Value Reference Range Interpretation Comments MAGNESIUM (BEAKER) (test code = 1.4 mg/dL 1.6-2.6 L 627) HEPATIC FUNCTION [id number] 03:22:00 Test Item Value Reference Range Interpretation [...] code = 1009 U/L 6-55 H 347) [id number] 03:12:00 Test Item Value Reference Range Interpretation Comments AMMONIA (BEAKER) (test code = 348) 29 mol/L 18-72 [id number] 03:10:00 Test Item Value Reference Range Interpretation Comments PARTIAL THROMBOPLASTIN TIME 42.3 seconds 22.5-36.0 H (BEAKER) (test code = 760) PROTHROMBIN [id number] 03:09:00 Test Item Value Reference Range Interpretation Comments PROTIME (BEAKER) (test code = 16.4 seconds 11.7-14.7 H 759) INR (BEAKER) (test code = 370) 1.3 <=5.9 RECOMMENDED COUMADIN/WARFARIN INR THERAPY RANGESSTANDARD DOSE: 2.0 - 3.0 Includes: PROPHYLAXIS forvenous thrombosis, systemic embolization; TREATMENT for venous thrombosis and/or pulmonary embolus.HIGH RISK: Target INR is 2.5-3.5 for patients with mechanical heart valves.[id number] 03:09:00 Test Item Value Reference Range Interpretation Comments FIBRINOGEN LEVEL (BEAKER) (test 413 mg/dl 225-434 code = 658) CBC W/PLT COUNT & AUTO [id number] 03:09:00 Test Item Value Reference Range Interpretation [...] L 0.00-0.20 (test code = 417) 0.00POCT-GLUCOSE [id number] 22:33:00 Test Item Value Reference Range Interpretation Comments POC-GLUCOSE METER 230 mg/dL 70-110 H TESTED AT [place] [address] ([facility]) (test code = [facility] 1538) [address] POCT-GLUCOSE [id number] 18:17:00 Test Item Value Reference Range Interpretation Comments POC-GLUCOSE METER 222 mg/dL 70-110 H TESTED AT [place] [address] ([facility]) (test code = [facility] 1538) [address] COMPREHENSIVE METABOLIC [id number] 16:59:00 Test Item Value Reference Range Interpretation [...] PATIEN TS. PERIPHERAL BLOOD SMEAR - PATHOLOGIST [id number] 15:30:00 Test Item Value Reference Range Interpretation Comments RBC MORPHOLOGY Polychromasia (BEAKER) (test code = 2846) RBC MORPHOLOGY Anisocytosis (BEAKER) (test code = 14929) PERIPHERAL SMR REVIEW Cell counts confirmed (BEAKER) (test code = 2640) [id number] Josefina Lara M.D. (BEAKER) (test code = (electronic signature) 7065) PROTHROMBIN TIME/[id number] 15:12:00 Test Item Value Reference Range Interpretation [...] Reference Range Interpretation Comments ANTI-NUCLEAR ANTIBODY (IVETTE) ([facility]) Negative Negative (test code = 418) POCT-GLUCOSE [id number] 12:47:00 Test Item Value Reference Range Interpretation Comments POC-GLUCOSE METER 212 mg/dL 70-[address] [facility] 67[address] ([facility]) (test code = [place] 1538) [address] [id number] 12:34:00 Test Item Value Reference Range Interpretation Comments RPR SCREEN ([facility]) (test code = Nonreactive Nonreactive 420) CLOSTRIDIUM DIFFICILE TOXIN [id number] 10:12:00 Test Item Value Reference Range Interpretation Comments CLOSTRIDIUM DIFFICILE TOXIN, PCR Not Detected Not Detected ([facility]) (test code = 1525) This qualitative real-time [...] Reference Range Change-Adult onlyNew: 60.0-150.0 Previous: 50.0-150.0POCT-GLUCOSE [id number] 06:40:00 Test Item Value Reference Range Interpretation Comments POC-GLUCOSE METER 167 mg/dL 70-[address] [facility] 67[address] (BEAKER) (test code = [place] 1538) [address] COMPREHENSIVE METABOLIC [id number] 04:08:00 Test Item Value Reference Range Interpretation [...] ESTIM ATED GFR. Specimen slightly ictericHEPATIC FUNCTION [id number] 04:06:00 Test Item Value Reference Range Interpretation [...] 1091 U/L 6-55 H 347) Specimen slightly rpmiwlhNCXGLMRXRH3002-40-68 04:01:00 Test Item Value Reference Range Interpretation Comments FIBRINOGEN LEVEL (BEAKER) (test 379 mg/dl 225-434 code = 658) [id number] 04:01:00 Test Item Value Reference Range Interpretation Comments PARTIAL THROMBOPLASTIN TIME 40.7 seconds 22.5-36.0 H (BEAKER) (test code = 760) PROTHROMBIN TIME/[id number] 04:00:00 Test Item Value Reference Range Interpretation [...] L 0.00-0.20 (test code = 417) 0.00POCT-GLUCOSE [id number] 00:19:00 Test Item Value Reference Range Interpretation Comments POC-GLUCOSE METER 159 mg/dL 70-110 H TESTED AT [place] [address] ([facility]) (test code = [place] [facility] 1538) [address] POCT-GLUCOSE [id number] 18:56:00 Test Item Value Reference Range Interpretation Comments POC-GLUCOSE METER 192 mg/dL 70-[address] [facility] 67[address] ([facility]) [facility] 8308) [address] COMPREHENSIVE METABOLIC [id number] 16:55:00 Test Item Value Reference Range Interpretation [...] CALCULATE ESTIM ATED GFR. Specimen slightly ictericPROTHROMBIN TIME/[id number] 16:37:00 Test Item Value Reference Range Interpretation Comments PROTIME (BEAKER) (test code = 20.9 seconds 11.7-14.7 H 759) INR (BEAKER) (test code = 370) 1.8 <=5.9 RECOMMENDED COUMADIN/WARFARIN INR THERAPY RANGESSTANDARD DOSE: 2.0 - 3.0 Includes: PROPHYLAXIS forvenous thrombosis, systemic embolization; TREATMENT for venous thrombosis and/or pulmonary embolus.HIGH RISK: Target INR is 2.5-3.5 for patients with mechanical heart valves.HEPATITIS B SURFACE [id number] 14:05:00 Test Item Value Reference Range Interpretation Comments HEPATITIS B SURFACE ANTIBODY < mIU/mL <8.0 (BEAKER) (test code = 647) HEPATITIS B CORE ANTIBODY, [id number] 13:43:00 Test Item Value Reference Range Interpretation Comments HEPATITIS B CORE TOTAL ANTIBODY Nonreactive Nonreactive (BEAKER) (test code = 497) BLOOD GAS, [id number] 13:35:00 Test Item Value Reference Range Interpretation [...] code = 1819) 28.0 % URINALYSIS W/ [id number] 13:16:00 Test Item Value Reference Range Interpretation [...] 1584) SOURCE(BEAKER) (test code = Urine, [place] 0444) VITAMIN D, 83-[id number] 13:14:00 Test Item Value Reference Range Interpretation Comments VITAMIN D 25-OH (BEAKER) (test code = < ng/mL 13.0-47.8 L 2764) ALPHA FETOPROTEIN (AFP), TUMOR [id number] 13:06:00 Test Item Value Reference Range Interpretation Comments ALPHA-FETOPROTEIN (BEAKER) (test code < ng/mL <10.0 = 1094) Effective 05/08/2014: Reference Range ChangeNew: <10.0 Previous: 0.0-8.0 HEMOGLOBIN [id number] 13:05:00 Test Item Value Reference Range Interpretation Comments HEMOGLOBIN A1C (BEAKER) (test code = 7.6 % 4.3-6.1 H 368) CARCINOEMBRYONIC ANTIGEN (CEA)2017-01-03 12:59:00 Test Item Value Reference Range Interpretation Comments CARCINOEMBRYONIC ANTIGEN (BEAKER) 2.0 ng/mL 0.0-5.0 (test code = 685) [id number] 12:59:00 Test Item Value Reference Range Interpretation Comments FERRITIN (BEAKER) (test code = 1841 ng/mL 5-275 H 361) Effective 05/08/2014: Reference Range ChangeNew: Male 5-275 Previous: Male 22-322 Female 5-275 Female [id number] 12:58:00 Test Item Value Reference Range Interpretation Comments T4 TOTAL (BEAKER) (test code = 895) 4.5 ug/dL 4.9-11.7 L [id number] 12:58:00 Test Item Value Reference Range Interpretation Comments THYROID STIMULATING HORMONE 1.79 uIU/mL 0.35-4.94 (BEAKER) (test code = 772) [id number] 12:58:00 Test Item Value Reference Range Interpretation Comments T3 TOTAL (BEAKER) (test code = 656) 34 ng/dL 48-159 L Effective 05/08/2014: Reference Range ChangeNew: 48-159 Previous: 60-181 CALCIUM, [id number] 12:47:00 Test Item Value Reference Range Interpretation Comments CALCIUM IONIZED (BEAKER) (test 1.05 mmol/L 1.12-1.27 L code = 698) PH, BLOOD (BEAKER) (test code = 7.43 1810) [id number] 12:42:00 Test Item Value Reference Range Interpretation [...] % 20-55 (test code = 2590) URIC [id number] 12:40:00 Test Item Value Reference Range Interpretation Comments URIC ACID (BEAKER) (test code = 16.0 mg/dL 2.6-7.2 H 773) Specimen slightly ictericLIPID [id number] 12:40:00 Test Item Value Reference Range Interpretation [...] 160-189 Very High >=190 Specimen slightly ictericBILIRUBIN, [id number] 12:40:00 Test Item Value Reference Range Interpretation Comments BILIRUBIN DIRECT (MADIE) (test 2.4 mg/dL 0.1-0.5 H code = 706) GAMMA GLUTAMYL TRANSFERASE (GGT)2017-01-03 12:40:00 Test Item Value Reference Range Interpretation Comments GAMMA GLUTAMYL TRANSFERASE (MADIE) 53 U/L 9-64 (test code = 364) Specimen slightly lxmcorfYLZUPKT0306-60-88 12:39:00 Test Item Value Reference Range Interpretation Comments ETHANOL (MADIE) (test code = 400) < mg/dL <=10 SCREEN, [id number] 12:36:00 Test Item Value Reference Range Interpretation Comments TEST URINE (MADIE) (test Negative code = 583) POCT-GLUCOSE [id number] 12:34:00 Test Item Value Reference Range Interpretation Comments POC-GLUCOSE METER 189 mg/dL 70-[address] [facility] 6720 (MADIE) (test code = [place] 1538) [address] HIV-1 ANTIGEN WITH HIV-1/2 [id number] 11:58:00 Test Item Value Reference Range Interpretation Comments HIV-1 ANTIGEN WITH HIV 1\\T\\2 Nonreactive Nonreactive ANTIBODY (2) (MADIE) (test code = 2586) TROPONIN [id number] 09:44:00 Test Item Value Reference Range Interpretation [...] Previous: 0.0-4.9CK-MB Reference Range:<6.7 Normal6.7-10.0 Borderline>10.0 AbnormalACETAMINOPHEN [id number] 08:31:00 Test Item Value Reference Range Interpretation Comments ACETAMINOPHEN LEVEL (BEAKER) (test < ug/mL 10.0-30.0 L code = 344) TROPONIN [id number] 05:53:00 Test Item Value Reference Range Interpretation [...] acute neurological disease, and persistent tachyarrhythmia.BASIC METABOLIC [id number] 05:53:00 Test Item Value Reference Range Interpretation [...] TO CALCULA TE ESTIMATED GFR. Specimen slightly hprmhaxKRVEYUCQOZ8670-77-99 05:52:00 Test Item Value Reference Range Interpretation Comments PHOSPHORUS (BEAKER) (test code = 5.7 mg/dL 2.3-4.7 H 604) HEPATIC FUNCTION [id number] 05:52:00 Test Item Value Reference Range Interpretation [...] Specimen slightly ictericCREATINE KINASE (CK), TOTAL AND [id number] 05:52:00 Test Item Value Reference Range Interpretation Comments CREATINE KINASE TOTAL (BEAKER) 341 U/L 29-200 H (test code = 380) CREATINE KINASE-MB (BEAKER) (test 5.4 ng/mL 0.0-6.6 code = 750) CREATINE KINASE-MB INDEX (BEAKER) 1.6 % (test code = 395) Effective 05/08/2014: CK-MB Reference Range ChangeNew: 0.0-6.6 Previous: 0.0-4.9CK-MB Reference Range:<6.7 Normal6.7-10.0 Borderline>10.0 AbnormalCBC W/PLT COUNT & AUTO [id number] 05:48:00 Test Item Value Reference Range Interpretation [...] K/ L 0.00-0.20 (test code = 417) 0.74WYVLPXXGLB9249-60-04 05:09:00 Test Item Value Reference Range Interpretation Comments FIBRINOGEN LEVEL (BEAKER) (test 427 mg/dl 225-434 code = 658) [id number] 05:09:00 Test Item Value Reference Range Interpretation Comments PARTIAL THROMBOPLASTIN TIME 36.2 seconds 22.5-36.0 H (BEAKER) (test code = 760) PROTHROMBIN TIME/[id number] 05:08:00 Test Item Value Reference Range Interpretation Comments PROTIME (BEAKER) (test code = 22.8 seconds 11.7-14.7 H 759) INR (BEAKER) (test code = 370) 2.0 <=5.9 RECOMMENDED COUMADIN/WARFARIN INR THERAPY RANGESSTANDARD DOSE: 2.0 - 3.0 Includes: PROPHYLAXIS forvenous thrombosis, systemic embolization; TREATMENT for venous thrombosis and/or pulmonary embolus.HIGH RISK: Target INR is 2.5-3.5 for patients with mechanical heart valves.HEPATITIS PANEL, [id number] 03:40:00 Test Item Value Reference Range Interpretation Comments HEPATITIS A IGM ANTIBODY (BEAKER) Nonreactive Nonreactive (test code = 498) HEPATITIS B CORE IGM ANTIBODY Nonreactive Nonreactive (BEAKER) (test code = 645) HEPATITIS C ANTIBODY (BEAKER) Nonreactive Nonreactive (test code = 367) HEPATITIS B SURFACE ANTIGEN (2) Nonreactive Nonreactive (BEAKER) (test code = 2585) CREATININE, RANDOM [id number] 03:18:00 Test Item Value Reference Range Interpretation Comments CREATININE URINE (BEAKER) (test 118.7 mg/dL code = 375) Reference Range: No NormalsSODIUM, RANDOM [id number] 03:18:00 Test Item Value Reference Range Interpretation Comments SODIUM URINE (BEAKER) (test code = 60 meq/L 243) Reference Range: No NormalsUREA NITROGEN, RANDOM [id number] 03:18:00 Test Item Value Reference Range Interpretation Comments UREA NITROGEN URINE (BEAKER) (test 303 mg/dL code = 538) Reference Range: No WtalberGAHCOFS6415-70-31 03:07:00 Test Item Value Reference Range Interpretation Comments AMMONIA (BEAKER) (test code = 348) 48 mol/L 18-72 I-[id number] 02:57:00 Test Item Value Reference Range Interpretation [...] within 95-100% range. URINALYSIS W/ REFLEX URINE [id number] 02:53:00 Test Item Value Reference Range Interpretation [...] /LPF = 514) SOURCE(BEAKER) (test code = 6615) [id number] 02:49:00 Test Item Value Reference Range Interpretation Comments PARTIAL THROMBOPLASTIN TIME 39.4 seconds 22.5-36.0 H (BEAKER) (test code = 760) PROTHROMBIN TIME/[id number] 02:48:00 Test Item Value Reference Range Interpretation Comments PROTIME (BEAKER) (test code = 22.0 seconds 11.7-14.7 H 759) INR (BEAKER) (test code = 370) 1.9 <=5.9 RECOMMENDED COUMADIN/WARFARIN INR THERAPY RANGESSTANDARD DOSE: 2.0 - 3.0 Includes: PROPHYLAXIS forvenous thrombosis, systemic embolization; TREATMENT for venous thrombosis and/or pulmonary embolus.HIGH RISK: Target INR is 2.5-3.5 for patients with mechanical heart valves.[id number] 02:48:00 Test Item Value Reference Range Interpretation Comments FIBRINOGEN LEVEL (BEAKER) (test 421 mg/dl 225-434 code = 658) BLOOD GAS, [id number] 02:43:00 Test Item Value Reference Range Interpretation [...] 21.0 % CBC W/PLT COUNT & AUTO RVJBPEXJUKFC1431-44-24 02:43:00 Test Item Value Reference Range Interpretation [...] code = 417) 0.00LACTIC ACID, VENOUS, WHOLE [id number] 02:35:00 Test Item Value Reference Range Interpretation Comments LACTATE BLOOD VENOUS (2) (BEAKER) 0.8 mmol/L 0.5-2.2 (test code = 2872) Effective 10/23/2015: Units/Reference Range ChangeNew: 0.5-2.2 mmol/L Previous: 5-20 mg/dLSpecimen slightly kfbfdhqDRZNEKLURGLQ1610-90-24 11:32:0014.6[facility] KczptyqHKLRNMVAROTR2618-27-66 11:32:0033[facility] UykemmuVHGTPKBEAYBI0797-56-61 11:32:008.3[facility] OnhtaatFDGFOMUQPKMP1481-08-90 11:32:0081[facility] Vin DGIQHWNCGIUO2023-67-66 11:32:001.95[facility] GaantscPTLCGCHYPDDL3743-10-45 11:32:0055[facility] SfgpneaOLUUHHUBUXDC0955-22-05 11:32:0019[facility] HAFHFDWEDOTE6001-43-18 11:32:13528Iuklngtr EvrqcljTKGOEOPIQZUE0707-69-62 11:32:74440Yoycenij OghadtgFHYBMWMQMHFV7971-93-35 11:32:004.6[facility] FPTFVWYKRI9901-12-81 11:32:0030.4[facility] ElugvgjNTKRZZEQYM1012-45-98 11:32:00 4.5[facility] HlnqfjiPXWCLPPZIQ9506-03-41 11:32:0013.7[facility] HermannHEMATOLOGY 2016-07-30 11:32:002.6[facility] KwlqfmjJYCQXTQIAB7921-20-36 11:32:000.7[facility] CzqdwjfLZWXLQWUOJ3568-40-18 11:32:000.7[facility] PsgpdxbCLXJTMGDKW0991-78-12 11:32:001.6[facility] HmcnmjcEALWIFTJCC8433-62-45 11:32:000.2[facility] OLBDTURBZS7097-27-83 11:32:0050.7[facility] OyrgtqoKJRUUQSSLS7272-25-09 11:32:00 28.1[facility] EwvvpjfHGMIBFIZEY4457-55-52 11:32:003.39[facility] HermannHEMATOLOGY 2016-07-30 11:32:008.9[facility] OihmeumFCBGLXWPJK7424-67-48 11:32:005.1[facility] TbutznrRRVOKONJTG5109-47-99 11:32:0011.3[facility] JsvuepzRDWPQVTBQM9115-89-30 11:32:64968Lpcoaxaw JkjagdbFTBGVTKYTZ5302-82-01 11:32:0031.8[facility] YBYUDOTCTT7465-26-01 11:32:0018.0[facility] ScdqfflGSOTNOGJLN7362-30-02 11:32:00 83.0[facility] KpgwuqbCWHWGDQBIF4211-99-70 11:32:00 Test Item Value Reference Range Interpretation Comments MCH (test code = MCH) 26.4 pg 27.0-31.0 [facility] DpoaxldVQYCJVWIMM6473-44-14 11:32:68060Annysrrv HermannIMMUNOLOGY 2016-07-30 11:32:00Negative *NA*(07/30/16 5:32 AM)[facility] HermannIMMUNOLOGY 2016-07-29 11:05:00Negative *NA*(07/29/16 5:05 AM)[facility] HermannIMMUNOLOGY 2016-07-29 11:05:0092[facility] HermannCHEM PYKEV4984-49-70 15:50:0025[facility] HermannCHEM XXIFJ2057-94-23 15:50:0055[facility] HermannCHEM BYTTD2847-08-63 15:50:0023[facility] HermannCHEM JLXQS0967-20-94 15:50:84275Gzetcpot HermannCHEM ZJIDJ0555-81-65 15:50:59718Paxrbern HermannCHEM AINFW1661-58-58 15:50:004.0 [facility] HermannCHEM TIPOY3875-12-26 15:50:10706Rcsmjogf HermannCHEM PANEL 2016-07-28 15:50:0013.0[facility] HermannCHEM OEUPT8597-42-27 15:50:007.7[facility] HermannCHEM OENLT5616-65-50 15:50:002.49[facility] DnftvkmCOZCQIVADW5464-60-73 15:50:00 Test Item Value Reference Range Interpretation Comments PT (test code = PT) 14.8 s 12.0-14.7 [facility] VknrxfxKDQBQHKWSO4915-64-52 15:50:00 Test Item Value Reference Range Interpretation Comments PTT (test code = PTT) 40.8 s 22.9-35.8 [facility] FtcwoqvAZETKKDWGW1737-70-97 15:50:001.14[facility] HermannIMMUNOLOGY 2016-07-28 15:50:0094[facility] ExnbzyuPDSQSXVMIS7488-80-09 10:35:001.7[facility] ZvlssknRPBYWZOPXJ4468-40-11 10:35:002.7[facility] KsxelruUWAELABHDL4980-11-35 10:35:000.1[facility] RwuxfttHJHJKMMIJU8495-13-39 10:35:000.7[facility] [place] XNOHKYCNMF0625-39-45 10:35:0051.3[facility] RjysymjGRHBGXQJVY9436-69-04 10:35:00 31.6[facility] GxiltmuHCLAKRUPXG9667-50-63 10:35:0014.1[facility] HermannHEMATOLOGY 2016-07-28 10:35:002.6[facility] SzmiburKBXEQZWAMS9318-57-75 10:35:000.4[facility] QbvyioqMMNPFMAXGR1684-63-55 10:35:0029.3[facility] IkijqhhFDKSKCWPOW1313-16-62 10:35:009.2[facility] HctphilRWZZFTRZVY7732-43-04 10:35:003.54[facility] [place] ERWYYDZNQM0558-09-91 10:35:005.3[facility] XsxfhzkLSZWUTOWZJ8608-24-49 10:35:0087 [facility] RtrwbblTSVXISWBFX4139-89-99 10:35:0031.4[facility] HermannHEMATOLOGY 2016-07-28 10:35:0017.9[facility] XvafackHBXEUEICQB7545-23-91 10:35:0010.9[facility] LyahtduJOOWBGPFJW2573-26-06 10:35:00 Test Item Value Reference Range Interpretation Comments MCH (test code = MCH) 26.0 pg 27.0-31.0 [facility] NcwouxjLRTYSEZPJP2499-45-49 10:35:0082.8[facility] HermannIMMUNOLOGY 2016-07-28 10:35:00Negative *NA*(07/28/16 4:35 AM)[facility] HermannCARDIAC ENZYMES 2016-07-27 10:22:30676Msinxdtj HermannCHEM WHAIR4492-38-14 10:22:007.8[facility] HermannCHEM RKTGK1291-40-67 10:22:0021[facility] HermannCHEM MDCNH2461-06-12 10:22:39589Vnvsaaxz HermannCHEM ADBVP6401-39-52 10:22:003.8[facility] HermannCHEM DRXIN7056-89-60 10:22:99606Mbnlauuo HermannCHEM RXCRC5210-99-42 10:22:000.4 [facility] HermannCHEM FKUVR2675-54-16 10:22:0074[facility] HermannCHEM PANEL 2016-07-27 10:22:0019[facility] HermannCHEM BZNAG5302-63-19 10:22:005.2[facility] HermannCHEM ZJWQZ3654-51-93 10:22:08684Gzyqvxms HermannCHEM FTUIV9686-15-44 10:22:78111Fdnnogin HermannCHEM FSPPF6148-44-68 10:22:001.8[facility] HermannCHEM CBFPH3367-18-09 10:22:0054[facility] HermannCHEM MVYRO5993-23-42 10:22:43595 [facility] HermannCHEM EYSJX3950-93-23 10:22:003.11[facility] HermannCHEM PANEL 2016-07-27 10:22:0017[facility] HermannCHEM UFWWN9484-11-10 10:22:0016.8[facility] HermannCHEM JNRRZ1026-65-95 10:22:003.4[facility] HermannCHEM KOCBF6438-02-39 10:22:000.5[facility] HermannCHEM WLLTS8678-45-56 10:22:002.0[facility] HermannCHEM RNYWW9349-84-88 10:22:003.7[facility] QjdyegaSJSQJPJRPQ9915-82-47 10:22:0017.7 [facility] IymepvfVHVTCBXZRE0864-28-91 10:22:0032.9[facility] HermannHEMATOLOGY 2016-07-27 10:22:0025.4[facility] YdfzqtqKNFSSYILVZ0586-78-19 10:22:00 Test Item Value Reference Range Interpretation Comments MCH (test code = MCH) 26.4 pg 27.0-31.0 [facility] MkukhfvTYTNSJXBVM3540-11-88 10:22:0080.3[facility] HermannHEMATOLOGY 2016-07-27 10:22:0011.4[facility] GegigccHVWJWYSYVH6238-67-04 10:22:0074[facility] TxwvvvxCQEBOJPXMV7260-87-78 10:22:003.16[facility] ZzpntosVUAUNCLJJS8259-28-34 10:22:005.3[facility] SkoavbjSMUBGNCPEW6628-58-24 10:22:008.4[facility] [place] WXIDPADQBV4105-37-56 10:22:0014.5[facility] VcqtwscMFKEIAHSGM9927-04-48 10:22:00 29.8[facility] GfkftjqQMIAUKOBGN9008-30-68 10:22:000.1[facility] HermannHEMATOLOGY 2016-07-27 10:22:000.8[facility] TuyfnxmFXZSDVLWPI5988-73-98 10:22:002.9[facility] XelnlfaBVCOVYMHWZ4078-54-79 10:22:001.6[facility] JthnctfKPVGJYYBVU6005-34-78 10:22:000.4[facility] DgljldyDCBFYBATAY9410-39-59 10:22:001.2[facility] [place] ISBITOISIL6603-66-69 10:22:0054.1[facility] HermannSPECIAL WVXOZKUNF1825-30-81 10:22:008.9[facility] HermannCARDIAC ZEDSSJB8875-77-46 17:40:94620Ocofxgyj Vin NPANFGMVJV3003-66-87 17:40:00Positive *ABN*(07/26/16 11:40 AM)[facility] XQIEAURCAD1962-94-43 17:40:00<0.2[facility] NtwimoiXNTEKCMXSX2554-77-34 17:40:00<0.2[facility] MjnjbsoDFMDUZRUZU8765-75-27 17:40:00<0.2[facility] PbrudpjOLERWJYUCY6074-14-85 17:40:00<0.2[facility] QnlvptqMOASZZDKQY5856-17-58 17:40:00Negative (07/26/16 11:40 AM)[facility] IlueegwHRCWDRLNEZ0774-79-54 17:40:00 1:40 *ABN*(07/26/16 11:40 AM)[facility] HermannURINE LURD9931-35-50 17:40:0021 [facility] YprhjdqUITCYDCMTR6324-18-69 14:00:001.11[facility] HermannHEMATOLOGY 2016-07-26 14:00:00 Test Item Value Reference Range Interpretation Comments PT (test code = PT) 14.5 s 12.0-14.7 [facility] QvewzejVBZFBHESQS6288-66-34 14:00:00Negative *NA*(07/26/16 8:00 AM) [facility] SahocilKTCDNUUQLI2622-27-66 14:00:00Negative *NA*(07/26/16 8:00 AM) [facility] TdlsgvcZZGCVYRRMD6358-13-31 14:00:00Negative *NA*(07/26/16 8:00 AM) [facility] DykbdwlPAGXIDHUBX4413-61-56 14:00:00Negative *NA*(07/26/16 8:00 AM) [facility] HermannCHEM YSAVC7206-24-65 10:42:0017[facility] HermannCHEM PANEL 2016-07-26 10:42:773907Mycukvbp HermannCHEM BBCVG3801-48-03 10:42:000.5[facility] HermannCHEM NLYVP5664-45-70 10:42:000.3[facility] HermannCHEM FSGIF4936-49-62 10:42:0079[facility] HermannCHEM ARYJZ7777-03-47 10:42:53754Qqxhfjvh HermannCHEM HSJJM9048-72-70 10:42:005.5[facility] HermannCHEM LZTOC3603-57-46 10:42:003.7 [facility] HermannCHEM APWMR7311-33-98 10:42:001.8[facility] HermannCHEM PANEL 2016-07-26 10:42:002.1[facility] ViwxvtyBRNKZNCXPL3860-01-38 10:42:00Present *ABN*(07/26/16 4:42 AM)[facility] IjzabukBEQJLDKZZH5279-65-20 10:42:001+ *ABN*(07/26/16 4:42 AM)[facility] SqfhbtnSPHAGMGVOY4226-82-76 10:42:000.1[facility] LudnrcbNBCIVHVJRM8437-05-12 10:42:00Moderate *ABN*(07/26/16 4:42 AM)[facility] IwpccooZHKCYCJSIK1792-29-39 10:42:0042[facility] ENIPJ5221-21-69 16:34:001[facility] AJDFO9321-61-49 16:34:004[facility]INE AND BRMLN6320-90-94 16:34:00Negative (07/25/16 10:34 AM)[facility] AND NIOEI7276-30-46 16:34:00Negative (07/25/16 10:34 AM)[facility] AND MUSNY7287-05-33 16:34:002[facility] BFFZA1616-55-75 16:34:006[facility] YIEWA1395-92-44 16:34:002.0[facility]INE AND GTZIO2034-30-74 16:34:00Negative (07/25/16 10:34 AM)[facility]INE AND RDDRD8750-67-46 16:34:00Negative *NA*(07/25/16 10:34 AM)[facility] AND QNXQO5650-64-69 16:34:001.012[facility] XYFRQ6911-57-15 16:34:005.5[facility] IGWSB8887-59-35 16:34:00Slight *ABN*(07/25/16 10:34 AM)[facility] CZLRZ5786-07-81 16:34:00Dark Yellow *NA*(07/25/16 10:34 AM)[facility] RULXN6433-50-55 16:34:009 [facility] CGKN1155-86-56 16:34:0030[facility] CHEM 2016-07-25 16:34:003.1[facility] PPLP8394-51-65 16:34:68874.9[facility] OJDC9341-04-41 16:34:24899.00[facility]annCHEM ZLGCM8308-48-79 08:55:002.0[facility]annCHEM SJGNM4832-62-38 08:55:005.2[facility] CARDIAC SWFWQFO7186-09-12 17:29:000.28[facility]annCARDIAC VVZTEJZ5985-73-02 17:29:966153Cjmyqlgy HermannCARDIAC RSTYSYK3792-33-94 17:29:000.144[facility]annCARDIAC AAWGZHA8182-34-82 17:29:000.2[facility]annCARDIAC ENZYMES 2016-07-24 17:29:006.3[facility]annCARDIAC OQHYCOR7805-24-69 11:20:000.38 [facility] RMFLUOY8996-53-30 11:20:000.173[facility]annCARDIAC JOEBTNI6747-73-26 11:20:000.2[facility]annCARDIAC ZYYITTY0472-80-14 11:20:00 5.6[facility]annCHEM LNUFJ7301-65-19 11:20:005.5[facility]annCARDIAC BBKOPWA4842-15-89 06:18:53581Pznsrwxa HermannCARDIAC XLNEBAX6936-62-37 04:59:27 0.57[facility]annCARDIAC VNZKVMS5980-51-73 10:22:83488Zbxvyfxk HermannCHEM XWPWU2544-42-88 10:22:002.1[facility]annCHEM QIGOW6393-42-43 10:22:76848 [facility]annCHEM ARUBH6149-47-01 10:22:0041[facility]annCHEM PANEL 2016-06-15 10:22:002.00[facility]annCHEM VZHRL0172-30-68 10:22:009.0[facility]annCHEM RLOVY2125-15-16 10:22:37351Gzlwxdlm HermannCHEM CXCOP8288-59-68 10:22:0033[facility] HermannCHEM BYOST8800-99-65 10:22:44053Vzqtxkjq HermannCHEM BWLCI5164-47-78 10:22:004.0[facility]annCHEM XJSJF2590-70-83 10:22:0032 [facility]annCHEM YYYZU3085-04-80 10:22:0013.0[facility] HermannCHEM PANEL 2016-06-15 10:22:004.6[facility] JubsljuYWSLQFTSTW8243-25-26 10:22:003.68[facility] CbxbnjaJMBXOVFAVP3672-96-94 10:22:009.9[facility] MfdyrreWMLDITSGKZ5858-32-77 10:22:00 Test Item Value Reference Range Interpretation Comments MCH (test code = MCH) 26.8 pg 27.0-31.0 [facility] GaxmbpkOHZBXYCJYJ3387-19-36 10:22:0034.2[facility] HermannHEMATOLOGY 2016-06-15 10:22:0078.3[facility] LuagfnaVBVCURCSMA9810-65-33 10:22:0028.8[facility] CrpxnbsFYBXWXOUDF8037-34-34 10:22:84466Tuvztyui KixobzzMLAVMABKDE0184-20-16 10:22:009.5[facility] RkgmbqpCQTCKWCNIW1206-68-03 10:22:0015.3[facility] ZRTTAXWQBW0418-27-15 10:22:005.6[facility] ZvfocsbPNCDCSKNXC3445-28-50 10:22:000.5 [facility] JdjdywkAGJOAVNLXA5210-47-89 10:22:001+ *ABN*(06/15/16 4:22 AM)[facility] PxfkgpgMKDVGHDWCE2899-10-46 10:22:000.1[facility] NctqikgQAKTBHMRBY5004-44-08 10:22:0033.5[facility] PvokbtnFWSSUQUYXY1240-87-04 10:22:0047.6[facility] MOOVWRNSNO5635-04-76 10:22:008.4[facility] GfwzdxrOHENXFWBSE9768-50-08 10:22:009.4 [facility] GmukiqxTVCWYMGOGB2945-52-67 10:22:002.6[facility] HermannHEMATOLOGY 2016-06-15 10:22:001.9[facility] GyagfpwAANVTCACTH8622-45-37 10:22:001.1[facility] BzegjsxXVGNLYWPBJ7168-92-56 10:22:000.5[facility] HermannCHEM ECHHO7850-44-94 11:03:004.8[facility]annCHEM HTVZW9224-95-59 11:03:002.0[facility]annCHEM BIWAJ1551-51-17 11:03:0032[facility]annCHEM ZRHSQ4708-89-92 11:03:65582 [facility]CHE[facility] DPVWF3090-05-50 11:03:004.4[facility]annCHEM PANEL 2016-06-14 11:03:0037[facility]annCHEM MPEYF8584-04-34 11:03:10611Fjrbmiwe HermannCHEM FENPY7433-88-58 11:03:002.00[facility]annCHEM UJCLZ4382-86-99 11:03:47891Tkqrwjzs HermannCHEM YPBBT5237-33-01 11:03:008.7[facility]annCHEM XRULE2909-94-26 11:03:0032[facility]annCHEM PCLDW6737-03-58 11:03:0013.4 [facility] EcovalaBPPWHRLWCK6227-11-83 11:03:0010.3[facility] HermannHEMATOLOGY 2016-06-14 11:03:000.1[facility] GuipppaHTSVIQTACN0257-50-46 11:03:000.5[facility] MjkektcFYNWZEYDIM4223-09-38 11:03:000.5[facility] IcjiasuNXGCTYPHWZ3043-45-85 11:03:002.1[facility] PtrjdsoHCCFVNGQQA1101-10-86 11:03:001.2[facility] Vin EUUJMVPZDZ0402-63-83 11:03:001.9[facility] CiaeakcBWVQHONTRR6263-89-34 11:03:00 42.5[facility] HrdjbngLCMVWUFLKV1030-52-40 11:03:0037.0[facility]annHEMATOLOGY 2016-06-14 11:03:009.0[facility] MbkkmqtWPDKHFOKFN4495-78-93 11:03:009.8[facility] KdyxfbbKQRFWKRTII5940-86-91 11:03:005.0[facility] OodlyswWGRQMCJTIH2410-15-48 11:03:003.57[facility] QtkgqclICPSNGCDJF8926-98-29 11:03:009.4[facility] FWZYNONVIZ5904-13-90 11:03:0028.5[facility] DglklfiFCNZLNZPHQ1297-87-08 11:03:00 183[facility] CrfuwrzWGSEVXFWVW3132-25-74 11:03:0079.9[facility] HermannHEMATOLOGY 2016-06-14 11:03:00 Test Item Value Reference Range Interpretation Comments MCH (test code = MCH) 26.3 pg 27.0-31.0 [facility] ChtovzrWZPRWDVMXM8129-42-70 11:03:0033.0[facility] HermannHEMATOLOGY 2016-06-14 11:03:0015.9[facility]annURINE PTVN7225-34-70 10:26:006.9[facility]annURINE CQCS8920-12-67 10:26:0019.30[facility]annURINE EOXH7201-10-06 10:26:26856.1[facility] RglbslnRSYHFSCOUN9687-40-90 09:20:009.7[facility] FEYZFWIBPA7084-54-40 09:20:19660Mkoerith MysrvyiJEEDQDVZRV5740-26-25 09:20:00 15.9[facility] TpmqqkfFRNFQOKYWY8876-44-18 09:20:0079.3[facility]annHEMATOLOGY 2016-06-13 09:20:0033.0[facility] HjbopejINJXBBTBHV3056-69-61 09:20:00 Test Item Value Reference Range Interpretation Comments MCH (test code = MCH) 26.2 pg 27.0-31.0 [facility] FdihcqbQEYLBJSKGW9394-49-90 09:20:0029.4[facility] HermannHEMATOLOGY 2016-06-13 09:20:009.7[facility] BcgeqfrDILSMVNHLW4893-35-76 09:20:003.70[facility] DfmqpcuXUDUDZXZJD5053-57-97 09:20:005.7[facility] DkforhzDVKFJEMSWG0246-89-82 09:20:000.1[facility] FkjlhpbCZRHGNOFMS8183-22-07 09:20:002.2[facility] Vin LWUNJHMODU6070-05-11 09:20:000.5[facility] LgbfvrdRGUITSPQZR8925-41-95 09:20:000.5 [facility] WwvzazbDSOHRIPUKU5306-15-83 09:20:001.1[facility]annHEMATOLOGY 2016-06-13 09:20:002.3[facility] KejfezjTSXXGUWVFW0468-53-28 09:20:009.5[facility] VetgkakHAULFMXAEM3345-26-45 09:20:009.0[facility] ZxliyltTVIWFSYZBG3868-36-64 09:20:0038.9[facility] BuglqzdYQXBPVNDGP7399-33-53 09:20:0041.5[facility] CHEM FPAVZ2682-32-29 06:34:001.7[facility] HermannCHEM SMBAC0116-56-89 06:34:004.2 [facility] JvvckatMLZKXGJEIIBF7609-01-93 06:34:0014.3[facility] HermannELECTROLYTES 2016-06-13 06:34:0041[facility] DucqtetYQUNWRXMGHUH2444-81-24 06:34:66200Fqxtmtdt VngxzakKIRINNCBFGDN6651-70-55 06:34:008.5[facility] AicrdzyOLMKAUDOPEXA0210-57-22 06:34:0032[facility] RpyzashKMBTLRYRGQAJ9433-82-45 06:34:04253Fvshbroy Vin ZVRLZDNIAQJR8990-42-11 06:34:0037[facility] MfzdhulUKUJLUQYMTIO0456-94-41 06:34:00 1.63[facility] ObritysAQVJDESYCYKQ0203-30-99 06:34:004.3[facility] NEKHIDNZTNTM3091-43-08 06:34:37806Pylwydpc HermannCHEM TUHPX0692-39-31 16:21:00 48.0[facility] RlzzdvsSLJGDJPOIY2356-33-95 14:56:001:40 *ABN*(06/11/16 8:56 AM) [facility] YxjwroxBUIANSVEZC1546-74-17 14:56:00Negative *NA*(06/11/16 8:56 AM) [facility] NohtactGFPHXNCMYJ8739-63-12 14:56:00Negative *NA*(06/11/16 8:56 AM) [facility] QjizsutMTAEIAUTUW4832-26-92 14:56:00Negative *NA*(06/11/16 8:56 AM) [facility] BfylhbaQRQVYFYQGK5690-94-28 14:56:00Negative *NA*(06/11/16 8:56 AM) [facility] BzvhqxgBEVTDKCNNY6367-32-35 14:56:00Negative *NA*(06/11/16 8:56 AM) [facility] FrczstmQMNZMXMZLG5316-24-20 14:56:00Positive *ABN*(06/11/16 8:56 AM) [facility]CHE[facility] QYFRF4508-22-41 10:42:000.1[facility]annCHEM PANEL 2016-06-11 10:42:005.2[facility]annCHEM RXPDN3522-68-62 10:42:001.6[facility]annCHEM HDGCH6610-33-46 10:42:0020[facility]annCHEM TCSDK9149-81-65 10:42:003.6[facility]annCHEM FBOVQ0401-43-38 10:42:000.4[facility]annCHEM VOOUJ6540-43-90 10:42:0074[facility]annCHEM OSZCU7258-14-83 10:42:0014 [facility]annCHE[facility] SHHSN7259-54-36 10:42:0013[facility] HermannHEMATOLOGY 2016-06-11 10:42:001.06[facility] PufnjrmFFEFJDXQWC4215-20-04 10:42:00 Test Item Value Reference Range Interpretation Comments PT (test code = PT) 14.0 s 12.0-14.7 [facility] VpqfoxrTMFLCWMEVR2144-24-52 10:42:00 Test Item Value Reference Range Interpretation Comments PTT (test code = PTT) 36.4 s 22.9-35.8 [facility] HermannSPECIAL SUOWDJBPQ3518-68-83 10:42:0010.5[facility] HermannCARDIAC HKPCIQJ8257-50-98 02:08:001.8[facility] HermannCARDIAC COKLKDT5064-47-90 02:08:00 2.9[facility] HermannCARDIAC MLLESOL2077-79-26 02:08:000.061[facility] CARDIAC NEJRMFQ0104-64-09 02:08:71642Ogmjhewq HermannCARDIAC ZBMPFFO1594-91-27 02:08:00<0.02[facility]annCHEM TUXSB1386-01-65 02:08:000.2[facility] CHEM RRRAV7716-00-07 02:08:000.1[facility]annCHEM OXFQQ5986-46-60 02:08:000.1 [facility]annCHEM RWUUZ4823-15-89 02:08:005.7[facility]annCHEM PANEL 2016-06-11 02:08:000.5[facility]annCHEM BJQRL4422-32-37 02:08:001.8[facility]annCHEM SADYS2214-63-60 02:08:003.9[facility]annCHEM QPDWQ1900-77-48 02:08:0099[facility]annCHEM QWMKD5379-63-82 02:08:0021[facility]annCHEM FRFPK9569-18-93 02:08:0017[facility] HermannDRUG STGKKO7135-31-60 02:08:00See Note *NA*(06/10/16 8:08 PM)[facility]annDRUG ZUDTOV8921-74-66 02:08:00Negative *NA*(06/10/16 8:08 PM)[facility]annDR[facility] ZPTCJV8743-08-29 02:08:00Negative *NA*(06/10/16 8:08 PM)[facility]annDR[facility] RFXAAQ5560-52-54 02:08:00Negative *NA*(06/10/16 8:08 PM)[facility]annDR[facility] TBDJVG1816-07-77 02:08:00Negative *NA*(06/10/16 8:08 PM)[facility]annDRUG OOARAR0907-92-72 02:08:00Negative *NA*(06/10/16 8:08 PM)[facility]annDR[facility] HVQCPJ5589-00-78 02:08:00Negative *NA*(06/10/16 8:08 PM)[facility]annDR[facility] RPITPX5753-77-77 02:08:00Negative *NA*(06/10/16 8:08 PM)[facility]annDRUG DEYHDC1531-43-93 02:08:00Negative *NA*(06/10/16 8:08 PM)[facility]annDR[facility] CJJXWF1714-91-99 02:08:00Negative *NA*(06/10/16 8:08 PM)[facility] PsprnhwQXXEPW5604-13-46 02:08:0075[facility] TqxojkpWGAIZU0339-66-45 02:08:0027[facility] FnlvinpWTLHIF8416-95-17 02:08:67602 [facility] CbydyqwQZSPIW0270-23-24 02:08:66728Jeesrtcu MrteabyZNGQCY0520-17-15 02:08:004.29[facility] NyyufilBPQPGD9467-07-31 02:08:0031[facility]annURINE AND UHZGM1638-10-77 02:08:006.0[facility]annUR[facility] AND RHEJW5009-81-13 02:08:00 Negative (06/10/16 8:08 PM)[facility] AND VVSMA5806-78-09 02:08:00 Trace *ABN*(06/10/16 8:08 PM)[facility] AND XEMNV7191-60-84 02:08:00 Negative *NA*(06/10/16 8:08 PM)[facility] AND EDMOQ7912-15-02 02:08:004[facility]annUR[facility] AND MXHWL9762-33-48 02:08:005[facility] URINE AND QQJAL8782-63-77 02:08:00Small *ABN*(06/10/16 8:08 PM)[facility] URINE AND MMSWP5450-09-27 02:08:001[facility] AND DRKWV8931-23-83 02:08:001.009[facility]UR[facility] AND WHFAM5317-66-23 02:08:00Yellow *NA*(06/10/16 8:08 PM)[facility] AND ZNITR6535-45-36 02:08:00Clear (06/10/16 8:08 PM)[facility]INE VPUH9851-44-21 02:08:00Negative (06/10/16 8:08 PM)[facility] OZFU4772-10-19 02:08:01346.4[facility]annURINE PMBX4987-12-34 02:08:005.4[facility]annURINE CXTP9454-77-13 02:08:0069.80[facility] HermannCARDIAC OMWGVVJ0502-40-64 16:53:603035Pasylgmp HermannCARDIAC BOOVYDH7643-80-88 16:53:00<0.02[facility] HermannCHEM PANEL 2014-06-26 13:02:000.9[facility] ZsufqvbPNMXVTQOLM2862-85-47 12:29:4410[facility] GhpzlafOQHRYGYRSRBFT7496-40-16 11:21:271[facility]annCHEM VQSYF1522-50-16 11:21:003.2[facility]annCHEM CBNWS1736-58-94 11:21:006.6[facility]annCHEM WFANN4066-30-14 11:21:000.6[facility]annCHEM YJDIX1801-79-63 11:21:0059 [facility]annCHEM IFIWM4544-44-97 11:21:0011[facility]annCHEM PANEL 2014-06-26 11:21:0017[facility]annCHEM UHQDQ3379-43-21 11:21:0099[facility]annCHEM QFMLB0682-13-82 11:21:71563Xodicchb HermannCHEM ELWDE1055-03-34 11:21:003.4[facility]annCHEM HZNPG2753-60-91 11:21:0011[facility]annCHEM YDDXJ3088-48-09 11:21:000.8[facility]annCHEM DJBUU2429-88-17 11:21:12582 [facility]annCHEM ZVLRD9279-46-66 11:21:0094[facility]annCHEM PANEL 2014-06-26 11:21:009.1[facility]annCHEM CDPLL8743-84-73 11:21:0024[facility]annCHEM WFEXW3232-88-21 11:21:000.9[facility]annCHEM XYFCM4851-57-65 11:21:003.4[facility]annCHEM RAHFI8057-40-17 11:21:0014[facility]annCHEM JFPEG3890-65-46 11:21:0019.4[facility]annCHEM LYSXX7687-36-67 11:21:0081 [facility] RrowaugUAUZLBVNZY4740-18-69 11:21:000.0[facility] HermannHEMATOLOGY 2014-06-26 11:21:001+ *ABN*(06/26/14 5:21 AM)[facility] GzroypuZQTLZAZNTX6054-99-87 11:21:000.6[facility] ExthwoaRJWGYIXPSP1277-48-96 11:21:000.1[facility] CAUCGLPVNA4488-13-88 11:21:002.5[facility] TzzybtcASQTNSUFSI0364-60-33 11:21:00 63.3[facility] SshjkczVDRMGZHFIK3535-47-02 11:21:005.6[facility] HermannHEMATOLOGY 2014-06-26 11:21:000.0[facility] QbfhuluLGHZBRPGOF0391-93-09 11:21:000.9[facility] JakegvcPVMSIFWESP4643-72-51 11:21:007.0[facility] GecstcpKVQAGLLEUX3645-87-79 11:21:0028.8[facility] QwateozPPITVELIGO5665-55-29 11:21:008.8[facility] VUWOPRWWQE5606-09-49 11:21:005.19[facility] DbqxdsyXUOYDNFXNT5831-97-50 11:21:00 14.4[facility] HdbrdxfYSZUTMVYDQ7026-08-19 11:21:0043.1[facility] HermannHEMATOLOGY 2014-06-26 11:21:0083.1[facility] IlmwdvqSQYOPFBJCX5376-46-08 11:21:00 Test Item Value Reference Range Interpretation Comments MCH (test code = MCH) 27.8 pg 27.0-31.0 [facility] JvqlooxTJGHKFFFWV4190-75-20 11:21:0013.1[facility] HermannHEMATOLOGY 2014-06-26 11:21:0033.5[facility] EpwlbxkAUEIXTAOCX8099-62-31 11:21:23413Xvlakgav QmjnuptCIHFMLQTPM0016-87-34 11:21:0010.4[facility] ElbhsukFXGZAFWYJU4141-31-17 04:48:55Performed (04/14/2013 23:48:55)[facility] CkthpwjTJQQUFIJOK3807-32-69 04:48:55Negative *NA*(04/14/2013 23:48:55)[facility] HsbgouxWTIIROZAIM2615-40-83 04:48:55Trace *ABN*(04/14/2013 23:48:55)[facility] VouqehtZVQXTFERIA2735-68-52 04:48:55Negative (04/14/2013 23:48:55)[facility] XpxdqjzRZLEESRHGE8291-42-50 04:48:550.2[facility] LlzqgzcSWSGVJITLG3767-01-47 04:48:55Negative (04/14/2013 23:48:55)[facility] BuyjdhdITMIYGQQYP6751-34-83 04:48:55Negative (04/14/2013 23:48:55)[facility] FwpkiuxSULCBRJVKA0529-31-59 04:48:55Clear (04/14/2013 23:48:55)[facility] LtxzwiaYYOGUIBNMY8847-21-49 04:48:55Yellow *NA*(04/14/2013 23:48:55)[facility] MgetxttXCFECJOPAB2673-84-28 04:48:55 Test Item Value Reference Range Interpretation Comments UA pH (test code = UA pH) 7.0 1 5.0-8.0 N [facility] VyqrxnoGGGMYSYUCM2162-79-82 04:48:55 Test Item Value Reference Range Interpretation Comments UA Spec Grav (test code = UA Spec 1.025 1 N Grav) [facility] FpstcgcVQFULLTPRD0445-62-15 04:48:55Trace *ABN*(04/14/2013 23:48:55) [facility]VubwvmzTAKWNCDMR0226-26-29 04:28:00Negative *NA*(04/14/2013 23:28:00) [facility] KibuhbtXANODWBEP0612-37-83 04:28:29732Zkddegkt HermannCHEMISTRY 2013-04-15 04:28:004.1[facility] TjzgepmZZPXSJSGO2551-51-39 04:28:0010.5[facility] YrapyutGYGAHZSNM1620-06-16 04:28:006[facility] UcnroqmNUDPWDNKT0340-58-71 04:28:00 0.7[facility] LlymxpjDEXSVKCZV6339-03-16 04:28:86398Tgggnghi HermannCHEMISTRY 2013-04-15 04:28:002.9[facility] GqjkkihRRHGZRGJX2106-67-24 04:28:0020[facility] JgflflmUKNHCMABO3608-27-91 04:28:000.5[facility] IivezdfPXIZLZFLZ4836-33-17 04:28:0089[facility] DkatrnwBYULVYCFS3809-55-91 04:28:0011[facility] CKKESTZHB0604-31-91 04:28:000.5[facility] BzvmikfXSJIMOQUG7045-93-44 04:28:003 [facility] ArabvplHRYBCNMSO5202-77-01 04:28:72501Plzrpyct HermannCHEMISTRY 2013-04-15 04:28:007.0[facility] IzikhwoHXNJGSIEB7911-29-26 04:28:008.7[facility] FsdhqkqZFFVOKPYM9100-88-34 04:28:0029[facility] DveznvoQBWWUSXEW8269-33-29 04:28:29942Oyfhzrrw NcdqklaYNXOKLJAJ4786-78-65 04:28:003.5[facility] BMZSMGNRR9207-50-78 04:28:80381Tmtvckgh RxrhwpuTBJVRRTASG8017-34-23 04:28:00 Test Item Value Reference Range Interpretation Comments PROTIME (test code = PROTIME) 12.1 s 12.0-14.7 N [facility] HhsrrvwMMCIMNBDOS5122-35-61 04:28:00 Test Item Value Reference Range Interpretation Comments aPTT (test code = aPTT) 39.0 s 22.9-35.8 H [facility] AvvfqldAQYSQGGAJP9289-58-31 04:28:000.90[facility] HermannHEMATOLOGY 2013-04-15 04:28:00 Test Item Value Reference Range Interpretation Comments MCH (test code = MCH) 29.4 pg 27.0-31.0 N [facility] TloiskxCGXBCRLNNF1228-67-51 04:28:0086.1[facility] HermannHEMATOLOGY 2013-04-15 04:28:0029.4[facility] GseibdpTHKNUUAOSQ0674-02-44 04:28:0014.0[facility] MlqrwshVHXXBFLCFC9439-16-84 04:28:006.2[facility] MgcvugnPUNTULZXDI6706-62-84 04:28:35420Dafyitcp WzeydopQFOMLVJOMS2033-57-66 04:28:0034.1[facility] VSMINPURLO6132-05-77 04:28:003.41[facility] RobfgurJFJFMSOPQE2538-71-98 04:28:00 10.0[facility] DwrpyisNMTSEUXLOJ6967-80-77 04:28:0010.1[facility] HermannHEMATOLOGY 2013-04-15 04:28:004.4[facility] YhwgvmiRLYFUEJIOO7408-75-63 04:28:000.7[facility] UituizfOTHQSCYVQB4609-15-87 04:28:0070.7[facility] CotwfftDNQSLBJCYD8584-07-91 04:28:000.3[facility] YuumfgoEIOEXOGEJS4787-92-25 04:28:001.2[facility] LQXZMCSOKT4152-22-88 04:28:004.5[facility] UshoytsJJIHCMLXVI3655-40-15 04:28:004.1 [facility] SvvwuqkOXGHFYLUIU7478-88-59 04:28:0020.0[facility] HermannHEMATOLOGY 2013-04-15 04:28:000.0[facility] BhnptbrDVTPEXKIBI3562-45-72 04:28:000.3[facility] HermannBEDSIDE GLUCOSE OAGJKKF7635-43-10 01:12:64998Zddfwkey HermannURINALYSIS 2012-03-14 23:40:00Trace *ABN*(03/14/2012 18:40:00)[facility] HermannURINALYSIS 2012-03-14 23:40:00 Test Item Value Reference Range Interpretation Comments UA pH (test code = UA pH) 6.0 1 5.0-8.0 N [facility] IjuttedYDIVXNIKBH5031-74-24 23:40:00>=80 mg/dL *NA*(03/14/2012 18:40:00)[facility] HospitalElgtyffNQJYPVWSLY9547-37-09 23:40:00>=1000 mg/dL *ABN*(03/14/2012 18:40:00)[facility] OftrtxxPBVBGCQRBJ6784-36-92 23:40:00Negative (03/14/2012 18:40:00)[facility] FxduggpNTEOQVPCAU3016-20-37 23:40:00Negative (03/14/2012 18:40:00)[facility] HospitalGvfqqnhLEQYIICNOW7520-37-77 23:40:000.2[facility] VmtmfgkQLMREGIDNS3965-29-57 23:40:00Negative (03/14/2012 18:40:00)[facility] HospitalJqimoqqZAARHETFEO5848-64-22 23:40:00Negative *NA*(03/14/2012 18:40:00)[facility] HospitalSamxdciRPQBZIMXPJ2199-05-48 23:40:00Clear (03/14/2012 18:40:00)[facility] MNNHOILWKB5830-83-24 23:40:00Yellow *NA*(03/14/2012 18:40:00)[facility] EFNMMACHEI0225-09-86 23:40:00>=1.030 *ABN*(03/14/2012 18:40:00)[facility] HospitalGvkjiyhUGADUIQKKZ8739-20-48 23:40:00Occasional /LPF (03/14/2012 18:40:00) [facility] HospitalXzzkpvhSTDKKBCHZU7557-05-21 23:40:003-5 /HPF (03/14/2012 18:40:00) [facility] HospitalUymkgwgGAWFZBZZSO8186-80-37 23:40:00Occasional /HPF (03/14/2012 18:40:00)[facility] HospitalGhhygixHARYICDLJ3194-83-65 22:50:00Negative *NA*(03/14/2012 17:50:00)[facility] HospitalAvoodqtFAKTWWKGW3477-40-29 22:50:0045[facility] HermannCHEMISTRY 2012-03-14 22:50:001.2[facility] XmchcijZDCNNNWAP1502-42-33 22:50:003.8[facility] IsxsouiTCBWKBGRY4909-19-18 22:50:0021[facility] IznapheVJMTJNDUA5928-11-38 22:50:0016.8[facility] WokikmqKKSQJCBFA3312-00-09 22:50:001.1[facility] LRPIAFSGO4880-31-82 22:50:008.2[facility] EagomelDESWXBBWL4646-85-85 22:50:003.8 [facility] EebxjzsJOGFBUTWO5731-69-67 22:50:000.7[facility] HermannCHEMISTRY 2012-03-14 22:50:31040Kphsergy ZqfqbtxWBDVVDVZL7760-42-59 22:50:0099[facility] QzdolcrDZSKFOUGC5323-87-40 22:50:0027[facility] LmtwtpoTMRQWJNDX1648-55-58 22:50:22146Cdpcrcva CoaawzeAHRLLFGMS1046-54-43 22:50:0015[facility] CQVEAXWVG5782-41-57 22:50:0024[facility] OagluvfZXTUFPVVR3584-51-64 22:50:0020 [facility] MvrmfhpZXBFIRNQR5132-36-24 22:50:0067[facility] HermannCHEMISTRY 2012-03-14 22:50:004.4[facility] MruhtvaIRMJMRPLG0633-66-64 22:50:009.9[facility] IkkwachQIKTTEBWYV4861-78-17 22:50:0011.8[facility] JjgbclnUYDHACMWLO7800-94-67 22:50:0035.9[facility] SkfdyegDDXJIDCOSV7965-75-95 22:50:00 Test Item Value Reference Range Interpretation Comments MCH (test code = MCH) 31.2 pg 27.0-31.0 H [facility] NvmvkrvKOXZEPCMAY9294-73-02 22:50:91564Hghdhetu HermannHEMATOLOGY 2012-03-14 22:50:0013.1[facility] QqlfsyzGBBZVHPBWJ1456-26-61 22:50:0040.7[facility] UuhfwcfYELWAFUULO4219-51-91 22:50:0014.6[facility] BihcsxqKTJZNANKGX4491-30-43 22:50:0087.0[facility] ZstqtltTPCYRDYOTB6226-97-93 22:50:0011.7[facility] OEXMZDYSOY4990-72-88 22:50:004.68[facility] XxsyrxhAOSXZJKMIR2385-91-96 22:50:00 0.0[facility] SeemrgyUDMUHWFFNI2177-07-60 22:50:000.2[facility] HermannHEMATOLOGY 2012-03-14 22:50:000.0[facility] SwjfkdlUILVABXBFJ8333-02-60 22:50:000.4[facility] WdjmgnmVQGJVOMODR2594-80-76 22:50:0010.6[facility] EfgnlazACCNTTDIMP7207-91-91 22:50:000.7[facility] GnyxebgNGVTLJDAZU1240-34-32 22:50:003.4[facility] SRHMGWPJRC2565-91-12 22:50:00Normal (03/14/2012 17:50:00)[facility] LQNKLMQMZP1864-00-30 22:50:006.0[facility] GarvmruVMGERZJMSA3441-51-87 22:50:000.0 [facility] JycionaSYMXFXQYWX0618-11-82 22:50:0090.4[facility] HermannHEMATOLOGY 2012-03-14 22:50:00Normal (03/14/2012 17:50:00)[facility]annBEDSIDE GLUCOSE IBBYUMB1196-36-32 23:43:13768Umadvpma HermannBEDSIDE GLUCOSE AUJNANU0313-58-56 17:40:31141Snorjotv HermannBEDSIDE GLUCOSE RWBOLCU2210-37-01 13:34:52349Tqyfvsqg VkuoqroVPLFDKFKM7740-10-14 00:00:00Negative (11/28/2011 19:00:00)[facility] RvzgwppEJZBCTXPNY3582-55-99 00:00:00Performed (11/28/2011 19:00:00)[facility] JuirvtiISDALIFMCB2154-73-19 00:00:00Occasional /LPF (11/28/2011 19:00:00) [facility]SijnobcVGXVWYCHRF5524-55-58 00:00:00None Seen (11/28/2011 19:00:00) [facility] HospitalNeygfxgPJZLSEUXPS4431-73-26 00:00:00Negative mg/dL (11/28/2011 19:00:00)[facility] HospitalMjujlzdMHDCXHYVPU2194-83-87 00:00:00 Test Item Value Reference Range Interpretation Comments UA pH (test code = UA pH) 7.0 1 5.0-8.0 N [facility] HospitalBqyrmavVJQLVMNAJY1886-01-08 00:00:00 Test Item Value Reference Range Interpretation Comments UA Spec Grav (test code = UA Spec 1.020 1 N Grav) [facility] HospitalNbaflboXKDNNQTUZE6941-90-04 00:00:00Clear (11/28/2011 19:00:00)[facility] HospitalAbzjgxmOREVNBJVFU4080-46-40 00:00:00Yellow *NA*(11/28/2011 19:00:00)[facility] HospitalGayyihjDQEQQDXMOP3821-54-80 00:00:000.2[facility] HwvubqnOTOFRJHQUK8725-87-95 00:00:00Negative (11/28/2011 19:00:00)[facility] HospitalThpxsyjBPNKDOPEFV2689-62-57 00:00:00Negative *NA*(11/28/2011 19:00:00)[facility] HospitalAlenmnvIDALUSWYPH8148-65-84 00:00:00>=80 mg/dL *ABN*(11/28/2011 19:00:00)[facility] HospitalannURINALYSIS 2011-11-29 00:00:00>=1000 mg/dL *ABN*(11/28/2011 19:00:00)[facility] JRZECEYUXK3279-43-28 00:00:00Negative (11/28/2011 19:00:00)[facility] ODVHMDNGYM2242-13-98 00:00:00Negative (11/28/2011 19:00:00)[facility] OASYIZFCB3166-27-81 20:41:0060[facility] CgvdmotBPCUUKWJV2948-33-91 20:41:0041 [facility] XwflbeiNMQHYXWTN8810-70-78 20:41:007.45[facility]annCHEMISTRY 2011-11-28 20:41:0037.0[facility] ZauxxqyFYUUKJQPY1172-23-71 20:41:0092.0[facility] YhdensaCDISRTYUI9716-19-64 20:41:004[facility] IqyvxusXPAYEVKLC9090-97-78 20:41:00 28.5[facility] BrnwqhxEYOGOCFPB6438-91-05 20:00:001.6[facility] HermannCHEMISTRY 2011-11-28 20:00:55747Arvrjtpq ViqksddQUSKBJVRG7806-15-82 20:00:004.2[facility] ZutnzbhISQBLMYFI4249-63-74 20:00:0023[facility] ZtqmufdGYCUBMTTG5300-27-89 20:00:0098[facility] VkhcdtnJTJEBDGVT2478-04-75 20:00:003.8[facility] UHRBCONRS8513-65-10 20:00:35131Gsyoyibe WjpyqhaWFMIWNLTC1554-64-26 20:00:000.7 [facility] CazycguWBUEMTKED3161-38-95 20:00:009[facility] PrdhyjvFHTEKTTER5406-71-05 20:00:93580Jxgpkchq TutdopsOZAJSBEPI2488-62-34 20:00:0013[facility] QRFHZMJCO9879-56-19 20:00:0020.8[facility] KukcgkeIJMZBXXLB3060-07-67 20:00:009.3 [facility] KbqkdnsHIZDYLSUA5707-44-05 20:00:006.7[facility]annCHEMISTRY 2011-11-28 20:00:001.7[facility] QeaitakAGQMVMAAC6028-54-43 20:00:002.5[facility] HijpxuiKQFJECIBV4945-41-81 20:00:0018[facility] GtvstabGDLHTITFF2478-61-85 20:00:0062[facility] XrbaitkSBYMLYGKQ9735-44-29 20:00:0032[facility] LVOMLPEEU9176-20-38 20:00:000.7[facility] ErszwuhILHNEIGSSS3684-40-86 20:00:001+ *ABN*(11/28/2011 15:00:00)[facility] YesshenMYKTRIXYAF1450-19-57 20:00:000.1 [facility] SkuggyaPAQHLFGSLU3414-45-94 20:00:000.0[facility]annHEMATOLOGY 2011-11-28 20:00:000.0[facility] QktnafnWATKTRESWV4593-27-30 20:00:00Slight *ABN*(11/28/2011 15:00:00)[facility] PurcbnvENESDZZRGN9510-58-90 20:00:00Slight *ABN*(11/28/2011 15:00:00)[facility] SicrqjeESBWZLBPJK6371-09-26 20:00:005.7 [facility] CnooxtqOBHTWGUOGI2264-20-02 20:00:000.8[facility]annHEMATOLOGY 2011-11-28 20:00:000.2[facility] AllkckuGDMUHJKLXS6200-48-88 20:00:000.0[facility] LpdwrcgHWYZMHGASH0410-59-62 20:00:001.9[facility] NgyenmnRMQZHFWXUM2120-02-19 20:00:0086.2[facility] CvmemggQQJFBRSIQM4939-98-82 20:00:0011.7[facility] DUAHCOQNQF3374-10-03 20:00:0010.8[facility] TtftfhzPMAIWGZNPQ9392-10-47 20:00:00 161[facility] ZzsjrhrOKWHHDWMKC1265-08-20 20:00:0035.6[facility]annHEMATOLOGY 2011-11-28 20:00:0012.4[facility] HtjepgqEDSSUXRLQR1147-58-14 20:00:00 Test Item Value Reference Range Interpretation Comments MCH (test code = MCH) 30.7 pg 27.0-31.0 N [facility] YvwodanDDZWBUULYI8310-43-83 20:00:0086.1[facility]annHEMATOLOGY 2011-11-28 20:00:0033.6[facility] LwdpxslBOGUAFQNVF1426-30-86 20:00:0012.0[facility] ExmwtqdHTGWDHXIGV8220-94-97 20:00:003.90[facility] JhejsckJFDIZCUXLG6916-24-71 20:00:006.6[facility] WwryisxNWPSUSAOT9751-86-87 19:51:00See Note 5*NA*(11/28/2011 14:51:00)[facility] JawqdpaUJRPGNEYR6064-39-90 19:51:00Negative *NA*(11/28/2011 14:51:00)[facility] YqinukuHYZKQYZEQ6361-97-61 19:51:00Negative *NA*(11/28/2011 14:51:00)[facility] UpvatwoALGZFOTPZ4190-47-02 19:51:00Negative *NA*(11/28/2011 14:51:00)[facility] WakoilrLXWSUDHAU5449-83-04 19:51:00Negative *NA*(11/28/2011 14:51:00)[facility] TuaecwdCJGWMKNGP0185-67-41 19:51:00Negative *NA*(11/28/2011 14:51:00)[facility] JmlpnxzTQXTAJXQA4210-91-70 19:51:00Negative *NA*(11/28/2011 14:51:00)[facility] BndpreaIYSAQGJVW3987-39-74 19:51:00Negative *NA*(11/28/2011 14:51:00)[facility] HermannBEDSIDE GLUCOSE OEYCSOP1528-06-91 16:20:62460Elmwxzgy DfickbbPSECWUJDT6361-57-75 15:30:00Negative (09/18/2011 10:30:00)[facility] QhhooecOXRFUUHILQ3632-35-45 15:30:00None Seen (09/18/2011 10:30:00)[facility] MrbqzxoTQNEPOEHFL9446-29-28 15:30:00None Seen (09/18/2011 10:30:00)[facility] UczwealPIYNNSEQZG1484-62-94 15:30:00None Seen (09/18/2011 10:30:00)[facility] WalilmcMPOINOFVHN2000-06-92 15:30:00Few /HPF *ABN*(09/18/2011 10:30:00)[facility] UwfqabnAHNELSUZWQ9282-01-96 15:30:00Performed (09/18/2011 10:30:00)[facility] SadtqxqDYEIVUEUSO3994-50-70 15:30:00Rare /LPF (09/18/2011 10:30:00)[facility] HospitalTlnndeuWTDAWEUIJE2599-78-13 15:30:0015 mg/dL *ABN*(09/18/2011 10:30:00)[facility] HospitalFexfgdgSFTMAPBXTX2184-33-36 15:30:00>=1000 mg/dL *ABN*(09/18/2011 10:30:00) [facility] HospitalUuwvfouMTMHRLOCSV3232-07-86 15:30:00Trace *ABN*(09/18/2011 10:30:00) [facility] HospitalHpjrlkrRMZAWRWTRB1016-97-71 15:30:000.2[facility] HermannURINALYSIS 2011-09-18 15:30:00Negative (09/18/2011 10:30:00)[facility]18 15:30:00Negative *NA*(09/18/2011 10:30:00)[facility]annURINALYSIS 2011-09-18 15:30:00Negative (09/18/2011 10:30:00)[facility]annURINALYSIS 2011-09-18 15:30:00Negative (09/18/2011 10:30:00)[facility]annURINALYSIS 2011-09-18 15:30:00 Test Item Value Reference Range Interpretation Comments UA pH (test code = UA pH) 7.5 1 5.0-8.0 N [facility] ClhtzixKPVJTIAIAT5251-46-22 15:30:00 Test Item Value Reference Range Interpretation Comments UA Spec Grav (test code = UA Spec 1.010 1 N Grav) [facility] SrlqkshVSUBTQLSBM4585-28-71 15:30:00Slight Cloudy (09/18/2011 10:30:00) [facility] HospitalUznnmgkAEYKWDMCGA4913-63-73 15:30:00Yellow *NA*(09/18/2011 10:30:00) [facility] JwhjgvhTHQUEMVGU8039-20-92 14:07:004.4[facility]annCHEMISTRY 2011-09-18 14:07:001.6[facility] HermannBEDSIDE GLUCOSE BCQJEFJ9826-79-59 14:01:00 >400[facility] OiqmaoeBWCAPAUHQ0039-16-98 13:52:0024[facility] HermannCHEMISTRY 2011-09-18 13:52:0032.0[facility] AlnfnrsXVCJYRAKM0753-63-54 13:52:0044[facility] SazdikaIZXLWMOMZ1573-12-16 13:52:007[facility] WmffnniUEUTZEVEF5386-43-07 13:52:00 48.0[facility] HwauzlnLNQSPOKZT8371-78-68 13:52:0037.0[facility] HermannCHEMISTRY 2011-09-18 13:52:007.47[facility] XvlmbvqGXDSVYQAH5683-61-76 13:52:0010.1[facility] PswuxbxQEVAUJNIF9699-04-11 13:52:0092[facility] MxhvefzSBICUNJRW2572-97-47 13:52:0030[facility] SrrbyojQWADPWYVK8379-06-13 13:52:003.5[facility] [place] SUCBYAKUK9769-10-94 13:52:80807Vdoloxqg VgapnufMDSMRRQAJ3354-15-24 13:52:001.3 [facility] MthbnunOPMTSKQHM5864-90-38 13:52:94190Pbmeqweo HermannCHEMISTRY 2011-09-18 13:52:0017[facility] ApyfpqhZKTDZGJRY4872-78-67 13:52:0014.5[facility] GggiimdJTPROWCSMP4703-80-97 13:52:0012.0[facility] TmtvoxpFKZXNNKKGW6939-85-97 13:52:50583Afrgfsmw YxhcajxWVBKASWPIR6421-13-38 13:52:0033.7[facility] Vin BUOZWJKPUG2565-24-84 13:52:00 Test Item Value Reference Range Interpretation Comments MCH (test code = MCH) 28.5 pg 27.0-31.0 N [facility] GfkojcwCBVKFYJUGL1175-43-61 13:52:0015.1[facility] HermannHEMATOLOGY 2011-09-18 13:52:0084.6[facility] XzahqlcRBQQGUNYPL7049-92-80 13:52:0036.4[facility] EsqesdzBWRLAEHOWN7839-27-20 13:52:0012.3[facility] EkrnnxlXEBBTFEVVE3694-83-33 13:52:004.30[facility] KengmcoCAOVXEOAKE7340-45-28 13:52:0011.7[facility] [place] IPTAVBLQDM0938-32-67 13:52:002.9[facility] UcfuoumSSAYQTKCYN2517-78-82 13:52:000.2 [facility] YoesvznBNYJYPAVIS6133-20-36 13:52:000.0[facility] HermannHEMATOLOGY 2011-09-18 13:52:000.0[facility] DkcglfhKMEQDKFCBM0256-77-91 13:52:000.3[facility] TvtlvnoXFPQEWCETF9017-99-61 13:52:0092.0[facility] XstymufNXECFACUUC5894-02-03 13:52:004.9[facility] SdwzchiGMPCYJIULB1046-21-46 13:52:00Rare *ABN*(09/18/2011 08:52:00)[facility] OujdsdvMWUCJJWCIW8556-43-77 13:52:00Slight *ABN*(09/18/2011 08:52:00)[facility] DuysbchJRWULUYPKD8959-84-05 13:52:001+ *ABN*(09/18/2011 08:52:00)[facility] FbjrmevCCSXEYIWUT5661-24-77 13:52:001+ *ABN*(09/18/2011 08:52:00)[facility] YgmwizdULFPHATYHN8292-47-97 13:52:000.6[facility] KLBCECZIWW6330-21-62 13:52:0010.8[facility] KsvoidnBVRRVFHZSM6067-15-56 13:52:00 0.0[facility] YckuhshBLZFIRCYZO3915-53-34 13:52:001+ *ABN*(09/18/2011 08:52:00) [facility] NeswezxRLMNWZJFBA9061-76-00 13:52:00Negative *NA*(09/18/2011 08:52:00) [facility]annBEDSIDE GLUCOSE UEXLGCG1095-77-88 17:34:16290Iwgpqupr [place] BEDSIDE GLUCOSE SCYAILR9432-23-77 11:43:0091[facility] HermannBEDSIDE GLUCOSE YVFKAFG8238-49-39 02:45:79939Cgkhymgp CbfsjjrXJNYVTXOF3123-36-13 08:47:23627 [facility] YeolvwqEPGGLSVQP4315-54-98 08:47:80910Sghisiox HermannCHEMISTRY 2011-09-08 08:47:0029[facility] NciurilENSKWQWFT8490-21-91 08:47:69980Uklsyffk HrzhfefJTXXJRGPO3506-80-85 08:47:0010[facility] ZsmoxilVAODIZWRB1734-93-64 08:47:003.8[facility] BoaylwfQDIEYMQOI1615-35-36 08:47:000.6[facility] WMWMFXWBQ2477-88-80 08:47:008.5[facility] TepvdjcGVUVEXQXR2148-51-07 08:47:0014.8 [facility] TdspuvkFAVLEXSKDY3006-06-03 08:47:00 Test Item Value Reference Range Interpretation Comments MCH (test code = MCH) 28.9 pg 27.0-31.0 N [facility] KoufvppNLZIJPYTGZ9600-53-68 08:47:0082.1[facility] HermannHEMATOLOGY 2011-09-08 08:47:0025.9[facility] JvfocifVXRBZUMSBZ0853-59-70 08:47:99744Rsmgynmp OfordrlORKSSTUTRU5025-82-99 08:47:0014.5[facility] GjvrekwZQNUFSWJTY8338-74-57 08:47:0035.2[facility] OwatcraWKBLYPBPWG4839-97-80 08:47:009.1[facility] [place] MZPIIHXKXP5432-42-14 08:47:003.15[facility] UducupjAPDCIHYHBA8588-37-10 08:47:00 9.0[facility] WgpijupIMNOXDQFTJ8331-61-79 08:47:006.3[facility] HermannHEMATOLOGY 2011-09-08 08:47:000.0[facility] KfzezywFIFQVQGRAW6319-31-65 08:47:000.0[facility] FqvvhtoZTORPVCNUF5297-37-85 08:47:003.8[facility] FcencuePEAFTTSPLD1015-56-40 08:47:002.0[facility] RmqusiqEXNBQEHNTR7862-32-41 08:47:000.5[facility] [place] DZJQJYNTNQ4981-96-56 08:47:000.7[facility] QflhmhnCGSEABNSDC1375-12-97 08:47:006.2 [facility] WakqypuFVHIMWUJJO6579-27-19 08:47:0061.1[facility] HermannHEMATOLOGY 2011-09-08 08:47:0031.5[facility] DdjwobsCRYCLHKLLV8677-73-73 08:47:000.4[facility] RenjxefWWDNRGFYI0611-67-06 10:54:0027[facility] KdqvcaxEXETXNSKR5633-86-43 10:54:87272Ucswyijw FwuavhxBPUEPVDCE8284-14-07 10:54:000.5[facility] CAJKZUJDU1419-28-80 10:54:0010[facility] EewphwzDAUOWCGVX3693-79-84 10:54:004.1 [facility] AdlulseAWBYFQBZG0719-88-89 10:54:10333Nqgbygrq HermannCHEMISTRY 2011-09-07 10:54:0083[facility] JjscqtuAFDVYEUYH1432-58-82 10:54:008.4[facility] QwvbkptYEWSKVKYN0603-52-74 10:54:0014.1[facility] TshpboxGBIWYRCKCU8329-84-65 10:54:0035.5[facility] ObxfqeqMPCYFFEJNN1521-92-32 10:54:004.7[facility] WQBUDCJZMJ4152-87-52 10:54:0092.6[facility] JhmvdmrTPWEPNQNME2468-12-52 10:54:00 Test Item Value Reference Range Interpretation Comments MCH (test code = MCH) 31.4 pg 27.0-31.0 H [facility] AxhalgdLRNVHKAIIP0588-09-73 10:54:003.84[facility] HermannHEMATOLOGY 2011-09-07 10:54:0012.1[facility] LhuivrtNBIETQMUIZ8125-31-36 10:54:43087Jndmpkap AspxzzsDVIZPIUJQR3687-43-89 10:54:0012.7[facility] TgnroplYGAMYYCGQC5988-46-14 10:54:0033.9[facility] ZnrlschYMZPMWUEJS8541-60-77 10:54:007.2[facility] ZELBZBBBWD5098-37-72 10:54:000.95[facility] EbbhpiiGIUMVARUFX9262-17-66 10:54:00 Test Item Value Reference Range Interpretation Comments PT (test code = PT) 12.7 s 12.0-14.7 N [facility] QbwqkrqVFXXMCTCVZ7113-84-01 10:54:00 Test Item Value Reference Range Interpretation Comments PTT (test code = PTT) 28.5 s 22.9-35.8 N [facility] KjzvbyxHSULVMAPUX3286-72-30 10:54:000.1[facility] HermannHEMATOLOGY 2011-09-07 10:54:000.0[facility] CdrjmegWKNDEOKLCM4316-49-51 10:54:000.4[facility] DqievnwXQOEBCDIVQ4608-41-57 10:54:002.1[facility] QyugnksAXHOFTXOBT6008-86-88 10:54:009.0[facility] DhjngvzDZAENOHJSI1690-26-70 10:54:002.4[facility] VXHJTLWXWV9222-02-59 10:54:000.4[facility] MsdqcfqKGWSOIFVJO6832-09-44 10:54:002.0 [facility] JtwceyeWIEJLOINHH2585-11-70 10:54:0042.8[facility] HermannHEMATOLOGY 2011-09-07 10:54:0045.4[facility] IqqztnwCSRURWPNR7387-46-37 10:02:23565Uwebcyfi WigtmonZDIIQVWDQ0717-73-60 10:02:004.1[facility] WqxzthaZBFECUJMV0744-03-76 10:02:51864Grxazvkg UoixoozBEYIDNNNS5967-63-48 10:02:0029[facility] [place] VJXKPKDBH3342-13-22 10:02:008.7[facility] QzabavzSQILVXBLR9560-07-29 10:02:006 [facility] LhrzievIBGWRODXE4775-79-83 10:02:000.6[facility] HermannCHEMISTRY 2011-09-07 10:02:40915Hbdvilac YytquifUPCSRXHMA9756-75-31 10:02:0013.1[facility] XymkechLMLKXDOIOB4584-95-46 10:02:000.0[facility] EqusaykLOBHPZJLZN4897-46-51 10:02:000.3[facility] MvxcniwSVDIHWJBZV9801-34-49 10:02:000.1[facility] ZXVPPKVZGD1990-29-04 10:02:002.8[facility] PqotzqnBLCCKMEYER8519-16-73 10:02:001.7 [facility] PzthhhnPTHSURCLKU3051-74-02 10:02:000.6[facility] HermannHEMATOLOGY 2011-09-07 10:02:006.9[facility] FmloacnSBDRAFZAZP2431-64-47 10:02:002.0[facility] GghvpsgZUKTJRNAKX5459-53-06 10:02:0055.8[facility] QtekisgQRXRRIANTW4768-69-64 10:02:0034.7[facility] KftdalpAWLSMYOMGX4342-65-41 10:02:00 Test Item Value Reference Range Interpretation Comments PTT (test code = PTT) 32.2 s 22.9-35.8 N [facility] XhhlnphGLJAPXEMZP1126-98-41 10:02:00 Test Item Value Reference Range Interpretation Comments PT (test code = PT) 13.3 s 12.0-14.7 N [facility] VzgwdgeFCKQEJMSCX8412-07-94 10:02:001.01[facility] HermannHEMATOLOGY 2011-09-07 10:02:0027.5[facility] HkssdmvBGCNOZOHVL7635-54-83 10:02:003.34[facility] QuaqflxCZBZHSFEUX5561-44-41 10:02:009.7[facility] OmqnsgkCLTAUIVBZO2209-95-94 10:02:005.0[facility] QwuahyvTFWPHWTHRY9856-00-46 10:02:009.2[facility] FNMYTSROYF3791-30-97 10:02:34216Jessegov WkyvvgjGSXIDSHRLY6265-66-21 10:02:00 14.3[facility] UmzypxiORFLFUZCMR8648-02-25 10:02:0035.2[facility] HermannHEMATOLOGY 2011-09-07 10:02:00 Test Item Value Reference Range Interpretation Comments MCH (test code = MCH) 28.9 pg 27.0-31.0 N [facility] UwyuxbkGIQFTJRIWQ9077-87-63 10:02:0082.1[facility] HermannCHEMISTRY 2011-09-03 09:24:002.1[facility] ZkhewxzSPLBIMZLB9402-30-96 17:10:0037.0[facility] WehvgvtHWQZKIXAP6238-33-01 17:10:0027.0[facility] YwekwkyRGSWYTBMI7629-58-73 17:10:0047[facility] KiazoooJELVVQIOD9283-08-48 17:10:007.37[facility] UWWKAGYRJ8628-45-20 17:10:001[facility] BryvbcqWBMOWMUDU1431-65-71 17:10:0027.2 [facility] GfkadlkLEFNSTTYZ0742-92-12 17:10:0019[facility] HermannCHEMISTRY 2011-09-01 13:09:001.0[facility] BznzmnnEAARKUDYA7026-44-15 12:20:00Negative (09/01/2011 07:20:00)[facility] YggxnlcUQSOWYPVLG2842-21-17 12:20:00Occasional /LPF (09/01/2011 07:20:00)[facility] IetrvdwZLYGMOTIKA8477-43-66 12:20:00Negative (09/01/2011 07:20:00)[facility] RtdcxblMKIELGMMVY5979-35-57 12:20:00Negative (09/01/2011 07:20:00)[facility] QwjgcikILTSALXBST4281-61-25 12:20:000.2[facility] IzozcsrCHDNHUKNYL7418-87-07 12:20:00Negative (09/01/2011 07:20:00)[facility] SrxxfgkYLNWZLERYN7037-57-76 12:20:00>=80 mg/dL *ABN*(09/01/2011 07:20:00) [facility] NydyuedPQFNTWSYON2923-66-66 12:20:00Negative (09/01/2011 07:20:00) [facility] UohvpyhCUJHFQKIRL9311-02-34 12:20:00 Test Item Value Reference Range Interpretation Comments UA pH (test code = UA pH) 6.0 1 5.0-8.0 N [facility] KjeiehiNWKMEMUSSA8585-37-23 12:20:00Negative (09/01/2011 07:20:00) [facility] RfyygxzMRYZEDIFRO8693-86-82 12:20:00>=1000 mg/dL *ABN*(09/01/2011 07:20:00)[facility] HospitalGgvuopnKOKDBYBBGZ1237-19-49 12:20:00 Test Item Value Reference Range Interpretation Comments UA Spec Grav (test code = UA Spec 1.035 1 H Grav) [facility] NbhdagdOLEEMENYGR9411-26-44 12:20:00Clear (09/01/2011 07:20:00)[facility] QtavbsdJXXARSCPTP5964-06-96 12:20:00Yellow *NA*(09/01/2011 07:20:00)[facility] JpffxfrYWREHTVYT4442-38-13 08:00:002.8[facility] ZzlkrngWGAFPGROZ8305-20-77 07:47:001.5[facility] AmaalalTLWIOPHPCF0200-79-52 07:47:00Slight (09/01/2011 02:47:00)[facility] MkoibxyPABRVCQJCG4074-74-46 07:47:001+ *ABN*(09/01/2011 02:47:00)[facility] FiyjubhMVNYWWDBUD2623-34-79 07:47:00Slight *ABN*(09/01/2011 02:47:00)[facility] BnphgrcLTYSWGOAMJ5788-68-12 07:47:00Slight *ABN*(09/01/2011 02:47:00)[facility] HermannBEDSIDE GLUCOSE SUJJYTG7208-11-27 17:02:47459Hojblfuu HermannBEDSIDE GLUCOSE VJJAJLV3639-61-71 13:45:92108Cyacqfqw HermannCHEMISTRY 2011-08-23 10:22:003.0[facility] JpqgdidIBAFCYFVX7458-88-17 10:22:001.8[facility] HethvymQJSXZLCNH1693-59-92 10:22:36987Djxhmbpf CmxvzljIAHJVFJFE7981-30-85 10:22:003.0[facility] JnnawivDBGGEMDOL8913-80-20 10:22:34109Tovjsfrt [place] YHXSZDFAO4378-00-91 10:22:000.6[facility] NwxdfgiUWJBYUOOG5376-99-86 10:22:0023 [facility] GfdtkimMJATUPVYS5390-04-07 10:22:007.3[facility] HermannCHEMISTRY 2011-08-23 10:22:34521Esfoskwm SytsmksSDCBEPRJW1910-36-71 10:22:0014.0[facility] ArlyyjcAKWWRMULX0520-78-83 10:22:005[facility] FcgdrpsUZTMUDUOBA3141-31-47 10:22:0069.6[facility] KidmgqfTOLDYNRDZS0737-77-69 10:22:0021.5[facility] [place] IMYRLNWQXU2256-56-22 10:22:007.6[facility] IhgxoeeFVYFNPMUCU0650-39-21 10:22:001.0 [facility] JzzsyopNGZTRRMJFB0332-59-73 10:22:000.3[facility] HermannHEMATOLOGY 2011-08-23 10:22:004.8[facility] CzyctcpKWCNUEGOTM7944-22-38 10:22:000.1[facility] HbuqqsdJVZMWGMFVF5771-06-43 10:22:001.5[facility] EwgsrzxQPKKVXBNYF0536-35-01 10:22:000.5[facility] FlzsnugBLBZGWURHM3076-46-15 10:22:000.0[facility] AVXTJTKTUM8821-00-26 10:22:0011.0[facility] IftukixZGVZFFAUIB7192-93-53 10:22:00 161[facility] RfimokhAHMADZYNCO3796-67-13 10:22:00 Test Item Value Reference Range Interpretation Comments MCH (test code = MCH) 29.6 pg 27.0-31.0 N [facility] BflofxeOBLCNSWEPM4253-65-75 10:22:0035.4[facility] HermannHEMATOLOGY 2011-08-23 10:22:0014.1[facility] GwrpszeUSNSDKTQKO9564-61-38 10:22:006.8[facility] LntvaznCCBCNKXNJV2211-89-35 10:22:0083.5[facility] NoskpwbBUUEHYTUPQ9903-23-39 10:22:004.44[facility] IhvbqvtYTXKJBHRUE9385-50-29 10:22:0013.1[facility] [place] VCECRUWRWM0099-01-88 10:22:0037.1[facility] HermannBEDSIDE GLUCOSE TESTING 2011-08-23 02:20:40320Fkthhevh XehphvxLPYAOHEBU4564-91-83 09:47:002.5[facility] RpzhywwIXLBOITMT4336-65-84 09:47:89353Kfjgtzvg MmjcxrnMCAEVLTLG4933-28-34 09:47:007[facility] NuzzfjuNPCGMHFVL0432-15-55 09:47:0019[facility] HermannCHEMISTRY 2011-08-22 09:47:000.3[facility] SizmocxAXNSIAVNV0918-40-33 09:47:74809Oguyelnj WmsjcbzHFXVPTTYK9047-10-15 09:47:35785Oivcvykf IcqfcdqWCKCKRTPU5429-58-88 09:47:003.6[facility] AvtzsluEECLNMCOT7156-80-76 09:47:007.9[facility] RHQMXJSBM2331-10-97 09:47:0018.6[facility] FdzqhybTVSKZEICD4720-82-56 09:47:001.6 [facility] MfnuubmWQVADOQMSP2617-51-50 09:47:000.0[facility] HermannHEMATOLOGY 2011-08-22 09:47:000.4[facility] TebvztjDUGCNHACAK1693-04-30 09:47:000.5[facility] BklvcrwCQYRJHZMBU6052-09-47 09:47:005.9[facility] YcgfsumGRHOASHAXE0308-74-56 09:47:001.2[facility] JutefufDAVCXMHQJL2232-45-67 09:47:000.5[facility] UIHIDBODHJ5887-64-15 09:47:000.0[facility] TodjzngWLHOIWMZBX8442-73-44 09:47:00 76.9[facility] QzpfnivUDEUPORAAW4911-65-91 09:47:0015.9[facility] HermannHEMATOLOGY 2011-08-22 09:47:006.3[facility] DwpkhntKSHYQNGLMX0091-86-84 09:47:0082.8[facility] SfpqmhmJVKRQDVPMO9327-49-00 09:47:0039.7[facility] BopjasfOOGHHJOIIT9206-56-13 09:47:00 Test Item Value Reference Range Interpretation Comments MCH (test code = MCH) 29.1 pg 27.0-31.0 N [facility] LatwksmYNINSSCVFT4303-22-94 09:47:0014.0[facility] HermannHEMATOLOGY 2011-08-22 09:47:0035.2[facility] SkcvjouWWPGPWYLIL7381-38-24 09:47:0013.9[facility] NctdceqZPYZJMOLZV6775-45-35 09:47:52453Hfpdvtlb UstmzdqPEPSXJCWRO0043-57-29 09:47:0011.9[facility] GmjwtwgTYWEZSXASW0855-79-60 09:47:007.7[facility] GCXJDBNZBO4814-55-25 09:47:004.80[facility] ZqiggdwQITRHHQDK9444-03-39 10:28:002.6 [facility] JaxzotjOCTPYCZUS7315-61-26 10:28:001.8[facility] HermannCHEMISTRY 2011-08-21 10:28:003.7[facility] NwkoqjeWIABVNSGC6817-59-38 10:28:31018Saqhumtg ObvicmfJQDJHDRAP5797-68-20 10:28:000.6[facility] OcxcpypOXMKBOAUB6467-11-44 10:28:0016[facility] XynfaidJIXCZWFHM3518-90-01 10:28:22207Ikwwdscu Vin QBCUDAXYP8363-35-67 10:28:008.3[facility] VsnrxvwIERLWMYFW3978-71-72 10:28:0019.7 [facility] NfdrbmiYXZJWLQJX1930-11-42 10:28:0099[facility] HermannCHEMISTRY 2011-08-21 10:28:0022[facility] MpiklqzCRTEGLROEX2232-37-51 10:28:12241Nchmhilp EdhtqppSEAZMNNVBS1062-62-65 10:28:0012.0[facility] CsbzjyeBMBGBGZHJR3098-50-51 10:28:007.3[facility] JmkspmeTGIHLGBGRO3044-85-03 10:28:0014.6[facility] BRRKQVQJAP1752-63-64 10:28:0035.0[facility] IxbyuhtHLDVASXMML0404-09-59 10:28:00 4.54[facility] DwykuxwQDTWKJIJQU9668-07-40 10:28:0037.6[facility] HermannHEMATOLOGY 2011-08-21 10:28:0082.9[facility] SzjusjjQQBDSOGCGH4649-53-08 10:28:00 Test Item Value Reference Range Interpretation Comments MCH (test code = MCH) 29.0 pg 27.0-31.0 N [facility] XzadnkoRPZJVVRFDQ1276-83-69 10:28:0013.2[facility] HermannHEMATOLOGY 2011-08-21 10:28:00Slight *ABN*(08/21/2011 04:28:00)[facility]annHEMATOLOGY 2011-08-21 10:28:00Slight (08/21/2011 04:28:00)[facility]annHEMATOLOGY 2011-08-21 10:28:000.0[facility] DhzjgkhBDGHWJYDXC9244-93-50 10:28:00Slight (08/21/2011 04:28:00)[facility] UbdicvaSUMSHOFVWI3781-91-23 10:28:000.6[facility] LqnvqhzNNSWXMAEKJ6217-26-07 10:28:000.0[facility] HdtyswnHLJBKZLBNF2006-79-40 10:28:005.3[facility] PydmopyPZXJVDYWOJ0022-54-79 10:28:001.3[facility] RRFXLQLARL0636-10-22 10:28:000.5[facility] DsmkanbUKAIQQTAMI2156-93-67 10:28:008.5 [facility] UhfucnbXDLKAOTQPV4941-51-26 10:28:000.3[facility] HermannHEMATOLOGY 2011-08-21 10:28:0017.3[facility] YbrorviLPXWNZWMZA3095-51-58 10:28:0073.4[facility] YdaygbfYZQMNZIXF1452-64-48 21:58:00Negative (08/19/2011 15:58:00)[facility] XkvhfptSOQEOEABU9952-31-54 21:58:22431Kwavhqjd HvhfmunOPDAFTOKK8548-98-51 21:58:0054[facility] CplijhfPAHWRRTJB3068-15-12 21:58:31084Mwrsdoka Vin IVCAJLHED9915-48-51 21:58:000.1[facility] UfgznhfQUSQZCRTA7500-81-04 21:58:000.9 [facility] FsqmgbjDODSCDIHN1434-11-07 21:58:004.4[facility] HermannCHEMISTRY 2011-08-19 21:58:008.8[facility] UworpijBTJBBYSWD2844-88-18 21:58:000.8[facility] NfrvpibRZIINXXUN0573-86-37 21:58:0036[facility] IbgdvjvTJEOUUNUW2821-75-74 21:58:004.4[facility] YdepfvsOJCXTUOZD8957-77-15 21:58:001.0[facility] [place] XGMOMMYTMV0336-42-36 21:58:00Occasional /HPF (08/19/2011 15:58:00)[facility] OohefepTEPPKFBVHS2206-76-44 21:58:003-5 /HPF *ABN*(08/19/2011 15:58:00)[facility] XrxvgajDULYISLOEL1722-64-58 21:58:003[facility] GmqniumEGYOUNXXMC7555-12-70 21:58:00Few /LPF (08/19/2011 15:58:00)[facility] LbihyfnDTHEJFSKUQ2127-39-03 21:58:00Occasional /HPF *ABN*(08/19/2011 15:58:00)[facility]IS 2011-08-19 21:58:000.2[facility] CnztlsoGXXAGGRKXP4091-41-86 21:58:00Rare /LPF (08/19/2011 15:58:00)[facility] FlwvntbFNRJCJJNEQ5713-15-31 21:58:00Performed (08/19/2011 15:58:00)[facility] GbcmohwJHTAEXGEEI1774-40-34 21:58:00Negative (08/19/2011 15:58:00)[facility] VzcvyijXWQQLLJFBD0304-45-23 21:58:00Negative (08/19/2011 15:58:00)[facility] DcdjqnxZYPUFNKXJG5035-97-16 21:58:00 Test Item Value Reference Range Interpretation Comments UA pH (test code = UA pH) 5.5 1 5.0-8.0 N [facility] FofpxksONOJKVCGOO6710-86-15 21:58:00Trace *ABN*(08/19/2011 15:58:00) [facility] ImggvzxVSBADGXITO1481-29-45 21:58:00Negative (08/19/2011 15:58:00) [facility] FouklvfWVKCLRISKV8033-06-06 21:58:0080 mg/dL *ABN*(08/19/2011 15:58:00) [facility] YxenlouTIYWXRHRDN2479-12-28 21:58:00>=1000 mg/dL *ABN*(08/19/2011 15:58:00)[facility] MsfqeguULHSXGRUVR6656-09-39 21:58:00Negative (08/19/2011 15:58:00)[facility] KwtcpxlMQRXSCBETP8620-92-75 21:58:00Slight Cloudy (08/19/2011 15:58:00)[facility] IfqapxqQZUGQBTOPX9374-03-45 21:58:00 Test Item Value Reference Range Interpretation Comments UA Spec Grav (test code = UA Spec 1.025 1 Grav) [facility] JmthvmaWQOJESCEWV4482-56-56 21:58:00Yellow (08/19/2011 15:58:00) [facility] GorbmadZXOVRQFHW0007-05-90 21:13:0023[facility]annCHEMISTRY 2011-08-19 21:13:001.0[facility] XnqxgqxDKOWMYBCO4374-13-24 21:13:47900Mgqjqqqu AgaywpyNQXKKDCIX2276-94-42 21:13:0056[facility] QrwbgaxCGTFYMCRO5855-52-72 21:13:009.0[facility] HjylxweUZCKVSWZI7346-81-02 21:13:004.8[facility] [place] XUEESRDJN9231-93-40 21:13:004.2[facility] YquckfiGWNYSJIUM6339-01-88 21:13:001.1 [facility] DbwuejgGXENOARFH6315-79-11 21:13:0030[facility]annHEMATOLOGY 2011-08-19 21:13:00Normal (08/19/2011 15:13:00)[facility]HE[facility]OLOGY 2011-08-19 21:13:00Slight *ABN*(08/19/2011 15:13:00)[facility]annHEMATOLOGY 2011-08-19 21:13:000.0[facility] SrrvxajIHIKEZXFRT6539-58-27 21:13:000.0[facility] GbixdxsVKTKNQOLL2034-34-13 21:10:0074.0[facility] VozixxqGVFCQECNV2538-43-12 21:10:0037.0[facility] HuwcbnfJIMNXZHEJ3120-72-19 21:10:0042[facility] Vin ZHSFDVUZT4613-49-51 21:10:0017.3[facility] MbtosskHPYFYUVRM0941-20-01 21:10:007.34 [facility] CkaduwaZLXWMMJFZ6837-14-46 21:10:0032[facility]annCHEMISTRY 2011-08-19 21:10:00-7[facility] BmydmyiZPDBWIYISG5320-69-77 20:34:00Negative *NA*(08/19/2011 14:34:00)[facility]
--- OUTSIDE RECORDS SUMMARY | 2020-07-03 12:24 | XMS REPORT | Summary of Care ---
:1980 Author Organization [facility] - [facility] Address [address] [place] [address] Care Team Providers Name Role Phone Vivien Morin DO Employment Specialist/Program Manager Vivien Morin DO Primary Care Provider Reason for Visit Reason Comments Follow-up 2mo/Hospital Follow up Martir Hsieh Encounter Details Date Type Department Care Team Description 06/27/2020 Office Visit [facility] Oz Olivares Palpitations (Primary Dx); Cardiology- Levi Bolaños MD ESRD (end stage renal disease) on dialys is; [address] Obesity (BMI 30-39.9); Drive, [address] JEAN MARIE 106 Family history of premature CAD; [place], [place] Nonobstructive atherosclerosis of coronary artery; [id number] Dyslipidemia; [phone] Essential hypertension; [phone] BABCOCK (dyspnea on exertion); (Fax) Atypical chest pain Allergies Active Allergy Reactions Severity Noted Date [...] comments 12/31/2011 Ketorolac Tromethamine Swelling High 12/13/2016 throjovita t documented as of this encounter (statuses as of 07/01/2020) Medications Medication Sig Dispensed Refills Start End Date Status Date divalproex ER Take 500 mg 0 Acti ve (DEPAKOTE ER) 500 mg by mouth 24 hr tablet every 24 (twenty-four) hours. Takes 500 mg am and 1000 mg in pm gabapentin 100 mg Take 100 mg 0 Active capsule by mouth 2 (two) times daily. vitamin [...] C by mouth (DIALYVITE 800 ORAL) daily. linagliptin Take by 0 Active (TRADJENTA) 5 mg mouth. tablet spironolactone 50 mg Take 50 mg by 0 Active tablet mouth daily. BUPROPION HCL ORAL Take by 0 A ctive mouth. pravastatin 40 mg Take by 0 Ac tive tablet mouth daily. mv-mn/iron/folic Take 1 0 Act montse acid/herb 190 capsule by (VITAMIN D3 COMPLETE mouth daily. ORAL) SERTraline 50 mg Take 50 mg by 0 Active tablet mouth daily. calcium acetate 667 Take 667 mg 0 Active mg capsule by mouth 3 (three) times daily with meals. traZODone 150 mg Take 150 mg 0 A ctive tablet by mouth at 0 bedtime. cetirizine Take 1 tablet 0 Activ e HCl/pseudoephedrine by mouth (ZYRTEC-D ORAL) daily. furosemide 40 mg Take 40 mg by 0 Active tablet mouth 2 (two) times daily. glipiZIDE 5 mg Take 1 tablet 180 tablet 1 Active tabletIndications: by mouth 2 0 Type 2 diabetes (two) times mellitus with daily before complication, breakfast and without long-term dinner. current use of insulin doxazosin 4 mg Take 1 tablet 0 A ctive tablet by mouth at 1 bedtime. doxazosin 4 mg Take 4 mg by 0 06/27/19 Di scontinued tablet mouth 2 (two) 21 (Dose times daily. adjustm ent) diphenhydrAMINE 50 Take 1 tablet 20 tablet 0 0 Discontinued mg tablet by mouth 8 21 (Therapy every 6 (six) comple rohit) hours as needed for Allergies. erythromycin [address] 0.5 1 Tube 0 06/27/19 Disco ntinued mg/gram (0.5 %) Inches in 9 21 (The rapy ophthalmic left eye 3 complete d) ointmentIndications: (three) times Orbital pain, left daily. Continue until you follow up with eye doctor. 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 07/22/2017 Overview: Added automatically from request for jose jacobs [id number] Neovascular glaucoma, left eye 07/08/2017 Increased intraocular pressure 07/08/2017 Fall 04/02/2017 Pneumonia 03/31/2017 Diabetes mellitus 03/25/2017 Overview: Added automatically from request for jose jacobs [id number] Pseudotumor cerebri 03/15/2017 Peripheral neuropathy 01/03/2017 Obesity [...] as of this encounter (statuses as of 07/01/2020) Resolved Problems Problem Noted Date Resolved Date Diabetes, type 1.5, uncontrolled, managed as type 2 04/29/20 15 09/17/2015 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, 0 10/20/2012 04/29/2015 uncontrolled Overview: ICD10 Diagnosis Term Lip Of Shank Cutter Utility documented as of this encounter (statuses as of 07/01/2020) Immunizations Name Administration Dates Next Due Influenza Virus Vaccine 02/20/2020 Influenza Virus Vaccine Quad .5 mL IM 6+ 02/27/2019 MO Influenza Virus Vaccine Quad IM 3+ YRS 06/22/2017, 6, 10/28/2015 Meningococcal B, OMV 07/25/2019 Meningococcal Polysaccharide (groups A, 07/25/2019 C, Y and W-135) conjugate vaccine (MCV4P) TDAP (ADACEL) VACCINE 07/25/2019 documented as of this encounter Social History Tobacco Use Types Packs/Day Years Used Date Former Smoker Cigarettes 0.25 Smokeless Tobacco: Never Used Comments: 1 to 1 a day Alcohol Use Drinks/Week oz/Week Comments No 0 Standard drinks or equivalent 0.0 Sex Assigned at Date Recorded Not on file COVID-19 Exposure Response Date Recorded In the last month, have you been in contact with No / Unsure 06/27/2020 10:05 AM SHOWROOM SALESPERSON someone who was confirmed or suspected to have Coronavirus / COVID-19? documented as of this encounter Last Filed Vital Signs Vital Sign Reading Time Taken Comments Blood Pressure 171/98 06/27/2020 10:33 AM SHOWROOM SALESPERSON Pulse 71 06/27/2020 10:33 AM SHOWROOM SALESPERSON Temperature - - Respiratory Rate 19 06/27/2020 10:29 AM SHOWROOM SALESPERSON Oxygen Saturation 99% 06/27/2020 10:29 AM SHOWROOM SALESPERSON Inhaled Oxygen Concentration - - Weight 77.3 kg (170 lb 6.4 oz) 06/27/2020 10:29 AM SHOWROOM SALESPERSON Height 154.9 cm (5' 1") 06/27/2020 10:29 AM SHOWROOM SALESPERSON Body Mass Index 32.2 06/27/2020 10:29 AM SHOWROOM SALESPERSON documented in this encounter Progress Notes Oz Olivares MD - 06/27/2020 9:30 AM CST [facility] Cardiology Consult Note Patient: Cathi Zaldivar Date of : 1980 Primary Care Physician: Jose Miguel Morin CHIEF COMPLAINT: Chief Complaint Patient presents with Follow-up 2mo/Hospital Follow up [facility] History of Present Illness: Cathi Zaldivar is a 39 year old female presents to the clinic to follow up care for atypical chest pain/palpitations//test results reviewed. History from patient. Since last OV, feeling well on the whole. No new cardiac symptoms elicited. BABCOCK NYHA Class II stable. No PND or orthopnea. No pedal edema. No exertional palpitations or palpitations at rest. No syncopalattacks. Risks factors: ESRD on dialysis, DM, HTN, dyslipidemia. Outside records reviewed [facility] PET Stress test 12/2016 IMPRESSION: 1. Normal study.2. Appropriate pharmacologic stress.3. Normal myocardial perfusion.4. Normal resting LV function. No deterioration of function is noted with pharmacologic stress.5. Normal extracardiac tracer distribution.6. No previous [facility] study for comparison. 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 DIVALPROEX ER (DEPAKOTE ER) 500 MG 24 HR TABLET Take 500 mg by mouth every 24 (twenty-four) hours. Takes 500 mg am and 1000 mg in pm FOLIC ACID/VIT B COMPLEX AND C (DIALYVITE 800 ORAL) Take 800 mg by mouth daily. FUROSEMIDE 40 MG TABLET Take 40 mg by mouth 2 (two) times daily. GABAPENTIN 100 MG CAPSULE Take 100 mg by mouth 2 (two) times daily. GLIPIZIDE 5 MG TABLET Take 1 tablet by mouth 2 (two) times daily before breakfast and dinner. LINAGLIPTIN (TRADJENTA) 5 MG TABLET Take by mouth. METOPROLOL TARTRATE 50 MG TABLET Take 50 mg by mouth daily. MV-MN/IRON/FOLIC ACID/HERB 190 (VITAMIN D3 COMPLETE ORAL) Take 1 capsule by mouth daily. PRAVASTATIN 40 MG TABLET Take by mouth daily. SERTRALINE 50 MG TABLET Take 50 mg by mouth daily. SPIRONOLACTONE 50 MG TABLET Take 50 mg by mouth daily. TRAZODONE 150 MG TABLET Take 150 mg by mouth at bedtime. VITAMIN C WITH LILLIANA HIPS (VITAMIN C) 1,000 MG TABLET Take 2,000 mg by mouth 2 (two) times daily. START taking Modified Medications as Prescribed Modified Medication Previous Medication DOXAZOSIN 4 MG TABLET doxazosin 4 mg tablet Take 1 tablet by mouth at bedtime. Take 4 mg by mouth 2 (two) times daily. STOP taking these medications DIPHENHYDRAMINE 50 MG TABLET Take 1 tablet by mouth every 6 (six) hours as needed for Allergies. ERYTHROMYCIN 5 MG/GRAM (0.5 %) OPHTHALMIC OINTMENT Place 0.5 Inches in left eye 3 (three) times daily. Continue until you follow up with eye doctor. REVIEW OF SYSTEMS: Comprehensive 10-system review was conducted and were negative except for what's noted in the HPI. The following systems were reviewed: Constitutional, cardiovascular, respiratory, gastrointestinal, genitourinary, musculoskeletal, neurologic, psychiatric, endocrinological, and hematological. PHYSICAL EXAMINATION: Vitals: 06/27/20 1029 06/27/20 1033 BP: (!) 180/101 (!) 171/98 BP Location: Left arm Patient Position: Sitting BP CUFF SIZE: Adult Small Pulse: 80 71 Resp: 19 SpO2: 99% Weight: 170 lb 6.4 oz (77.3 kg) Height: 5' 1" (1.549 m) LABS - Reviewed pertinent labs as below: [...] and/or test for 1 year. Labs from [facility] dialysis reviewed. Done on 09.23.2018 A1c: 5.5 Hb 11 K 4.7 LDL 54 TG 165 HDL 33 ASSESSMENT/PLAN 1. Palpitations 2. ESRD (end stage renal disease) on dialysis 3. Obesity (BMI 30-39.9) 4. Family history of premature CAD 5. Nonobstructive atherosclerosis of coronary artery 6. Dyslipidemia 7. Essential hypertension 8. BABCOCK (dyspnea on exertion) 9. Atypical chest pain Palpitations/Atypical chest pain: Echo dated 05/28/2020 was reviewed with her. No significant changes compared to the prior echo in 2018 noted. We also reviewed the event monitor dated 04/2020 with her. No significant arrhythmias noted. Reassured her from a cardiac standpoint. Mild LVH: In the setting of longstanding hypertension. Following up with nephrology. Recommended goal blood pressure at least less than 140/90 consistently. BABCOCK NYHA class II: Multifactorial: In the setting of underlying hypertension, diastolic dysfunction,dialysis Volume control per nephrology on HD. Diastolic dysfunction: Stable by echo. We will continue to monitor. Atypical chest pain history/Nonobstructive CAD by cath 02/22/2019 Recommended to follow up with PCP regarding noncardiac work up for chest pain. If no contraindications from nephrology stand point, recommend low ASA 81 mg daily. HTN: Elevated in the office. Follows Dr Dean nephrology. Goal BP << 130/80 reviewed. Or at least less than 140/90. Continue Lasix 40 BiD, Toprol XL 50 mg daily, Doxazosin 4 mg BiD, Ovaifreyq92 mg daily. Dyslipidemia: at goal on pravastatin. Recommend goal LDL < 70. LDL 54 based on labs from 09/2018 T2DM: follows PCP ESRD on HD: She reports currently she is not on the transplant list yet. Explained to let us know when she is currently on the list so that we can proceed with the annual cardiac work-up as per protocol. Follow up in 6 months. Explained that from cardiac stand point, she may proceed with renal Tx under moderate risk category. Recommended goal BP < 130/80 consistently, LDL << 70, HbA1c < 6.5. No orders of the defined types were placed in this encounter. Requested Prescriptions No prescriptions requested or ordered [...] feel free to call our office at [phone]. I would be happy to be of further assistance for Cathi Zaldivar wellbeing. Jono Olivares MD Equipment Services Associate, Division of Cardiology [facility] documented in this encounter Plan of Treatment Date Type Specialty Care Team Description 07/09/2020 Nurse Visit Obstetrics & Gynecology Nurse, [facility] Women' s Health 07/09/2020 Office Visit Orthopedic Surgery Deja Cleaning , DPM [address] [place] [phone] 08/06/2020 Office Visit Endocrinology Diabetes & Tee Gonzalez MD Metabolism [address] [place] [address] [phone] 12/26/2020 Office Visit Cardiology Oz Olivares MD [address] [place] [address] [address] [place], [place] [phone] 04/08/2021 Office Visit Obstetrics & Gynecology Gina Bhat MD [address] [place] [address] Dr. [address] [place], [place] [address] Health Maintenance Due Date Last Done Comments VARICELLA VACCINES (1 of 2 10/18/1983 - 2-dose childhood series) PNEUMOCOCCAL 0-64 YEARS 1988 COMBINED SERIES (1 of 3 - PCV13) LDL-C 07/07/2018 07/07/2017, 06/23/2012, 06/16/2011, Additional history exists EYE EXAM 02/18/2020 02/17/2019, 05/02/2018, 04/06/2018, Additional history exists HgA1C 10/29/2020 05/01/2020, 07/07/2017, 06/21/2017, Additional history exists Depression Screening 02/05/2021 02/06/2020 CREATININE (SERUM) 05/01/2021 04/24/2019, 02/22/2019, Postp oned from 01/14/2019, Additional 0 (Alternative history exists Guidelines) FOOT EXAM 05/01/2021 05/01/2020, 05/01/2020, 02/06/2020, Additional history exists PAP SMEAR 04/02/2023 04/02/2020, 05/03/2015, 09/02/2010, Additional history exists DTaP,Tdap,and Td Vaccines 07/25/2029 07/25/2019 (2 - Td) INFLUENZA VACCINE Completed 02/20/2020, 02/27/2019, 06/22/2017, Additional history exists documented as of this encounter Implants Implanted Type Area Yeast Culture Developer Device Shelf Model / Identifier Expiration Serial / Date Lot Bio Eye Implant, Integrated Orbital Impl ants Ioi 18mm Perforated #[id number] - [id number] ORBITAL Left: INTEGRATED 09/18/2018 [id number] / Implanted: Qty: 1 on 01/17/2018 by Latrell Mcknight MD at [facility] Eye ORBITAL IMPLANTS [id number] / [id number] documented as of this encounter Results Not on filedocumented in this encounter Visit Diagnoses Diagnosis Palpitations - Primary ESRD (end stage renal disease) on dialys is End stage renal disease Obesity (BMI 30-39.9) Obesity, unspecified Family history of premature CAD Family history of ischemic heart disease Nonobstructive atherosclerosis of morales ry artery Dyslipidemia Other and unspecified hyperlipidemia Essential hypertension Unspecified essential hypertension BABCOCK (dyspnea on exertion) Other dyspnea and respiratory abnormalit y Atypical chest pain Other chest pain documented in this encounter Insurance Payer Benefit Plan / Subscriber ID Effective Dates Phone Addre ss Type Group MEDICARE MEDICARE PART [id number] 2014-Presen [phone] [address] Medicare A & B t 2 [id number] [place] [phone] [facility] MEDICAID OF [id number] 2020-Presen [phone] [address] Medicaid [place] t 0 [id number] [place] [address] documented as of this encounter Advance Directives Name Relationship Healthcare Agent Communication Relationship Jennifer Gunderson Mother Health Care Agent [place] Found Sibling [facility] [phone] Agent (Mobile)
--- OUTSIDE RECORDS SUMMARY | 2020-07-03 12:24 | XMS REPORT | Summary of Care ---
:1980 Author Organization [facility] - [facility] Address [address] [place] [address] Care Team Providers Name Role Phone Vivien Morin DO Box Toe Cementer Vivien Morin DO Primary Care Provider Reason for Visit Reason Comments Follow-up 2mo/Hospital Follow up Martir Hsieh Encounter Details Date Type Department Care Team Description 06/27/2020 Office Visit [facility] Oz Olivares Palpitations (Primary Dx); Cardiology- Levi Bolaños MD ESRD (end stage renal disease) on dialys is; 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 documented as of this encounter Last Filed Vital Signs Vital Sign Reading Time Taken Comments Blood Pressure 171/98 06/27/2020 10:33 AM PARCEL WRAPPER Pulse 71 06/27/2020 10:33 AM PARCEL WRAPPER Temperature - - Respiratory Rate 19 06/27/2020 10:29 AM PARCEL WRAPPER Oxygen Saturation 99% 06/27/2020 10:29 AM PARCEL WRAPPER Inhaled Oxygen Concentration - - Weight 77.3 kg (170 lb 6.4 oz) 06/27/2020 10:29 AM PARCEL WRAPPER Height 154.9 cm (5' 1") 06/27/2020 10:29 AM PARCEL WRAPPER Body Mass Index 32.2 06/27/2020 10:29 AM PARCEL WRAPPER documented in this encounter Progress Notes Oz Olivares MD - 06/27/2020 9:30 AM CST [facility] Cardiology Consult Note Patient: Cathi Zaldivar Date of : 1980 Primary Care Physician: Jose Miguel Morin CHIEF COMPLAINT: Chief Complaint Patient presents with Follow-up 2mo/Hospital Follow up [facility] History of Present Illness: Cathi Zaldivar [...] dialysis, DM, HTN, dyslipidemia. Outside records reviewed [facility] PET Stress test 12/2016 IMPRESSION: 1. Normal study.2. Appropriate pharmacologic stress.3. Normal myocardial perfusion.4. Normal resting LV function. No deterioration of function is noted with pharmacologic stress.5. Normal extracardiac tracer distribution.6. No previous [facility] study for comparison. 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 Labs from [facility] dialysis reviewed. Done on 09.23.2018 A1c: 5.5 [...] 50 mg daily, Doxazosin 4 mg BiD, Przchbtbo30 mg daily. Dyslipidemia: at goal on pravastatin. [...] feel free to call our office at [phone]. I would be happy to be of further assistance for Cathi Zaldivar wellbeing. Jono Olivares MD Precision Honer, Division of Cardiology [facility] documented in this encounter Plan of Treatment Date Type Specialty Care Team Description 07/09/2020 Nurse Visit Obstetrics & Gynecology Nurse, [facility] Women' s Health 07/09/2020 Office Visit Orthopedic Surgery Deja Cleaning , DPM [address] [place] [phone] 08/06/2020 Office Visit Endocrinology Diabetes & Tee Gonzalez MD Metabolism [address] [place] [address] [phone] 12/26/2020 Office Visit Cardiology Oz Olivares MD [address] [place] [address] [address] [place], [place] [phone] 04/08/2021 Office Visit Obstetrics & Gynecology Gina Bhat MD [address] [place] [address] Dr[address] [place], [place] [address] Health Maintenance Due Date [...] of this encounter Implants Implanted Type Area Chairman Emeritus Device Shelf Model / Identifier Expiration Serial / Date Lot Bio Eye Implant, Integrated Orbital Impl ants Ioi 18mm Perforated #[id number] - [id number] ORBITAL Left: INTEGRATED 09/18/2018 [id number] / Implanted: Qty: 1 on 01/17/2018 by Latrell Mcknight MD at [facility] Eye ORBITAL IMPLANTS [id number] / [id number] documented as of this encounter Results Not [...] Addre ss Type Group MEDICARE MEDICARE PART [id number] 2014-Presen [phone] [address] Medicare A & B t 2 [id number] [place] [address] [facility] MEDICAID OF [id number] 2020-Presen [phone] [address] Medicaid [place] t 0 [id number] [place] [address] documented as of this encounter Advance Directives Name Relationship Healthcare Agent Communication Relationship Jennifer Gunderson Mother Health Care Agent [place] Found Sibling [facility] Agent (Mobile)
--- OUTSIDE RECORDS SUMMARY | 2020-07-03 12:25 | XMS REPORT | Summary of Care ---
:1980 Author Organization [facility] - [facility] Address [address] [place] [address] Care Team Providers Name Role Phone Vivien Morin DO Surveillance Supervisor Vivien Morin DO Primary Care Provider Reason for Visit Reason Comments Orders Fasting Lipid Encounter Details Date Type Department Care Team Description 07/03/2020 Telephone [facility] Oz Olivares Orders (Fasti ng Lipid ) Cardiology- Levi Bolaños MD [address] [place] [address], [address] [place] [address] DR [address] [place] [phone] Allergies Active Allergy Reactions Severity Noted Date [...] as of this encounter (statuses as of 07/03/2020) Medications Medication Sig Dispensed Refills Start Date End Date Status divalproex ER Take 500 mg by 0 A ctive (DEPAKOTE ER) 500 mg mouth every 24 24 hr tablet (twenty-four) hours. Takes 500 mg am and 1000 mg in pm gabapentin 100 mg Take 100 mg by 0 Active capsule mouth 2 (two) times daily. vitamin C [...] and C mouth daily. (DIALYVITE 800 ORAL) linagliptin Take by mouth. 0 Ac tive (TRADJENTA) 5 mg tablet spironolactone 50 mg Take 50 mg by 0 Active tablet mouth daily. BUPROPION HCL ORAL Take by mouth. 0 Active pravastatin 40 mg Take by mouth 0 Active tablet daily. mv-mn/iron/folic Take 1 capsule by 0 Active acid/herb 190 (VITAMIN mouth daily. D3 COMPLETE ORAL) SERTraline 50 mg Take 50 mg by 0 Active tablet mouth daily. calcium acetate 667 mg Take 667 mg by 0 Active capsule mouth 3 (three) times daily with meals. traZODone 150 mg Take 150 mg by 0 02/01/2020 Active tablet mouth at bedtime. cetirizine Take 1 tablet by 0 Ac tive HCl/pseudoephedrine mouth daily. (ZYRTEC-D ORAL) furosemide 40 mg Take 40 mg by 0 Active tablet mouth 2 (two) times daily. glipiZIDE 5 mg Take 1 tablet by 180 tablet 1 05/01/2020 Active tabletIndications: mouth 2 (two) Type 2 diabetes times daily mellitus with before breakfast complication, without and dinner. long-term current use of insulin doxazosin 4 mg tablet Take 1 tablet by 0 06/27/2020 Active mouth at bedtime. 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 07/22/2017 Overview: Added automatically from request for jose reynaldo [id number] Neovascular glaucoma, left eye 07/08/2017 Increased intraocular pressure 07/08/2017 Fall 04/02/2017 Pneumonia 03/31/2017 Diabetes mellitus 03/25/2017 Overview: Added automatically from request for jose reynaldo [id number] Pseudotumor cerebri 03/15/2017 Peripheral neuropathy 01/03/2017 Obesity [...] as of this encounter (statuses as of 07/03/2020) Resolved Problems Problem Noted Date Resolved Date Diabetes, type 1.5, uncontrolled, managed as type 2 04/29/20 15 09/17/2015 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 documented as of this encounter Last Filed Vital Signs Not on filedocumented in this encounter Miscellaneous Notes Telephone Encounter - Mahsa Diego MA - 07/03/2020 10:17 AM CSTPatient informed due for labs. Orders were placed. Patient advised to fast and come soon to a [facility] facility for draw. All verbally understood. Patient is mychart active. ----- Message from Oz Olivares MD sent at 07/02/2020 3:30 PM ABAP DEVELOPER ----- I have placed orders for lipids/CMP. Can u ask her to get it. Not urgent. ----- Message ----- From: Hollie Easton RN Sent: 07/01/2020 1:52 PM ABAP DEVELOPER To: Mahsa Diego MA, Oz Olivares MD I called both [facility] and Dr. Morin's office. They do not have a lipid panel on file for her. ----- Message ----- From: Oz Olivares MD Sent: 07/01/2020 1:01 PM ABAP DEVELOPER To: Hollie Easton RN, Mahsa Diego MA Can you reach out to [facility] to see if he can get the recent lipid panel for her. The last lipid panel that we have sent from that was done on September 2018. DEVELOPER documented in this encounter Plan of Treatment Date Type Specialty Care Team Description 07/09/2020 Nurse Visit Obstetrics & Gynecology Nurse, [facility] Women' s Health 07/23/2020 Office Visit Orthopedic Surgery Deja Cleaning DPM [address] [place] [phone] 08/06/2020 Office Visit Endocrinology Diabetes & Tee Gonzalez MD Metabolism [address] [id number] [phone] 12/26/2020 Office Visit Cardiology Oz Olivares MD [address] [facility] [address] MARTINEZ [address] [place] [address] [phone] 04/08/2021 Office Visit Obstetrics & Gynecology Gina Bhat MD [facility] [address] [place] [phone] Name Type Priority Associated Diagnoses Order S chedule COMP. METABOLIC PANEL LAB Routine ESRD (end stage chio al Expected: 07/03/2020, (53848) disease) on dial ysis Expires: 07/03/2021 Family history of premature CAD Dyslipidemia Obesity (BMI 30-39.9) Health Maintenance Due Date Last Done Comments [...] of this encounter Implants Implanted Type Area Event Producer Device Shelf Model / Identifier Expiration Serial / Date Lot Bio Eye Implant, Integrated Orbital Impl ants Ioi 18mm Perforated #[id number] - [id number] ORBITAL Left: INTEGRATED 09/18/2018 [id number] / Implanted: Qty: 1 on 01/17/2018 by Latrell Mcknight MD at [facility] Eye ORBITAL IMPLANTS [id number] / [id number] documented as of this encounter Results Not on filedocumented in this encounter Visit Diagnoses Diagnosis ESRD (end stage renal disease) on dialys is - Primary End stage renal disease Family history of premature CAD Family history of ischemic heart disease Dyslipidemia Other and unspecified hyperlipidemia Obesity (BMI 30-39.9) Obesity, unspecified documented in this encounter Insurance Payer Benefit Plan / Subscriber ID Effective Dates Phone Addre ss Type Group MEDICARE MEDICARE PART [id number] 2014-Gurwinder [phone] Medicare A & B t 2 [id number] DHEERAJ GEE [id number] [facility] MEDICAID OF [id number] 2020-Gurwinder [phone] [address] Medicaid [place] t 0 [id number] [place] [address] documented as of this encounter Advance Directives Name Relationship Healthcare Agent Communication Relationship Jennifer Gunderson Mother Health Care Agent [place] Found Sibling [facility] Health Care Agent (Mobile)
--- OUTSIDE RECORDS SUMMARY | 2020-07-03 12:25 | XMS REPORT | Summary of Care ---
:1980 Author Organization [facility] - [facility] Address [address] [place] [address] Care Team Providers Name Role Phone Vivien Morin DO Submarine Diver Vivien Morin DO Primary Care Provider Reason for Visit Reason Comments Follow-up 2mo/Hospital Follow up Martir Hsieh Encounter Details Date Type Department Care Team Description 06/27/2020 Office Visit [facility] Adilia Kimble Palpitations (Primary Dx); Cardiology- Levi Bolaños MD ESRD (end stage renal disease) on dialys is; [address] Obesity (BMI 30-39.9); Drive, [address] Family history of premature CAD; [place], [place] Nonobstructive atherosclerosis of coronary artery; [phone] Dyslipidemia; [phone] Essential hypertension; [phone] BABCOCK (dyspnea on exertion); (Fax) Atypical chest [...] as of this encounter (statuses as of 07/02/2020) Medications Medication Sig Dispensed Refills Start End [...] as of this encounter (statuses as of 07/02/2020) Active Problems Problem Noted Date Malfunction of arteriovenous dialysis fistula, initial encounter 11/21/2018 Overview: Added automatically from request for jose jacobs [id number] Candidiasis of vulva and vagina 08/08/2018 Screening for breast cancer 08/08/2018 Pyogenic granuloma of conjunctiva, right 04/06/2018 Overview: Added automatically from request for jose myersy [id number] 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 Increased intraocular pressure 07/08/2017 Fall 04/02/2017 Pneumonia 03/31/2017 Diabetes mellitus 03/25/2017 Overview: Added automatically from request for jose jacobs [id number] Pseudotumor cerebri 03/15/2017 Peripheral neuropathy 01/03/2017 Obesity [...] as of this encounter (statuses as of 07/02/2020) Resolved Problems Problem Noted Date Resolved Date Diabetes, type 1.5, uncontrolled, managed as type 2 04/29/20 15 09/17/2015 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 documented as of this encounter Last Filed Vital Signs Vital Sign Reading Time Taken Comments Blood Pressure 171/98 06/27/2020 10:33 AM MUSIC SUPERVISOR Pulse 71 06/27/2020 10:33 AM MUSIC SUPERVISOR Temperature - - Respiratory Rate 19 06/27/2020 10:29 AM MUSIC SUPERVISOR Oxygen Saturation 99% 06/27/2020 10:29 AM MUSIC SUPERVISOR Inhaled Oxygen Concentration - - Weight 77.3 kg (170 lb 6.4 oz) 06/27/2020 10:29 AM MUSIC SUPERVISOR Height 154.9 cm (5' 1") 06/27/2020 10:29 AM MUSIC SUPERVISOR Body Mass Index 32.2 06/27/2020 10:29 AM MUSIC SUPERVISOR documented in this encounter Progress Notes Adilia Kimble MD - 06/27/2020 9:30 AM CST [facility] Cardiology Consult Note Patient: Cathi Zaldivar Date of : 1980 Primary Care Physician: Jose Miguel Morin CHIEF COMPLAINT: Chief Complaint Patient presents with Follow-up 2mo/Hospital Follow up [facility] History of Present Illness: Cathi Zaldivar is [...] HTN, dyslipidemia. Outside records reviewed [facility] PET Stress test 12/2016 IMPRESSION: 1. Normal study.2. Appropriate pharmacologic stress.3. Normal myocardial perfusion.4. Normal resting LV function. No deterioration of function is noted with pharmacologic stress.5. Normal extracardiac tracer distribution.6. No previous [facility] study for comparison. 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 Labs [facility] dialysis reviewed. Done on 09.23.2018 A1c: [...] 50 mg daily, Doxazosin 4 mg BiD, [id number] mg daily. Dyslipidemia: at goal on pravastatin. [...] feel free to call our office at [phone]. I would be happy to be of further assistance for Cathi Zaldivar wellbeing. Jono Kimble MD Fire Chief Deputy, Division of Cardiology [facility] documented in this encounter Miscellaneous Notes Addendum Note - Adilia Kimble MD - 06/27/2020 9:30 AM MUSIC SUPERVISOR Addended by: ADILIA KIMBLE on: 07/02/2020 03:32 PM Modules accepted: Orders C SUPERVISOR documented in this encounter Plan of Treatment Date Type Specialty Care Team Description 07/09/2020 Nurse Visit Obstetrics & Gynecology Nurse, [facility] Women' s Health 07/23/2020 Office Visit Orthopedic Surgery Deja Cleaning , DPDeepali [address] [place] [phone] 08/06/2020 Office Visit Endocrinology Diabetes & Tee Gonzalez MD Metabolism [facility] [place] [address] [phone] 12/26/2020 Office Visit Cardiology Adilia Kimble MD [address] [place] [address] DR [address]ART[address] [place] [phone] 04/08/2021 Office Visit Obstetrics & Gynecology Gina Bhat MD [address] [place] [address] Dr. Martinez [address] [place] [address] [phone] Name Type Priority Associated Diagnoses Order S chedule LIPID PANEL LAB Routine ESRD (end stage renal 1 Occu rrences starting (02574)(TOTAL disease) on dial ysis 07/02/2020 until CHOLESTEROL, Obesity (BMI 30- 39.9) 07/01/2021 TRIGLYCERIDES, HDL) Family history of pre mature CAD Nonobstructive atherosclerosis of coronary artery Dyslipidemia Essential hypert ension BABCOCK (dyspnea on exertion) Atypical chest p ain Palpitations Health Maintenance Due Date Last Done Comments [...] of this encounter Implants Implanted Type Area Sport Internship Device Shelf Model / Identifier Expiration Serial / Date Lot Bio Eye Implant, Integrated Orbital Impl ants Ioi 18mm Perforated #[id number] - [id number] ORBITAL Left: INTEGRATED 09/18/2018 [id number] / Implanted: Qty: 1 on 01/17/2018 by Latrell Mcknight MD at [facility] Eye ORBITAL IMPLANTS [id number] / [id number] documented as of this encounter Results Not [...] Addre ss Type Group MEDICARE MEDICARE PART [id number] 2014-Gurwinder [phone] [address] Medicare A & B t 2 [id number] DHEERAJ GEE [phone] [facility] MEDICAID OF [id number] 2020-Gurwinder [phone] [address] Medicaid [place] t 0 [id number] [place] [address] documented as of this encounter Advance Directives Name Relationship Healthcare Agent Communication Relationship Jennifer Gunderson Mother Health Care Agent [place] Found Sibling [facility] [phone] Agent (Mobile)
[2020-07-03] MEDS ORDERED: HYDROCOD 2.5mg-ACETAMIN 108mg/5mL Soln ONE (14:32)
[2020-07-03] MEDS ORDERED: ACETAMINOPHEN 500 MG TAB ONE (14:33)
[2020-07-03 14:54] LABS: SARS-COV-2 RT PCR NEGATIVE (NEGATIVE)
[2020-07-03] MEDS ORDERED: ONDANSETRON 4 MG (ODT) TAB ONE (15:09)
--- NOTE | 2020-07-03 15:15 | RAD REPORT ---
EXAM DESCRIPTION: RAD - Chest Single View - 07/03/2020 3:05 pm CLINICAL HISTORY: COUGH, shortness of breath COMPARISON: May 2020 TECHNIQUE: AP portable chest image was obtained 07/03/2020 3:05 pm . FINDINGS: Lung dick are underinflated compared to the prior study. Under penetrated technique furt her contributes to accentuated interstitial pattern. No peripheral mass or consolidation. Heart and v asculature are normal. No measurable pleural effusion and no pneumothorax. No acute bony abnormality seen. No acute aortic findings suspected. IMPRESSION: No acute cardiopulmonary process. Above detailed exam limitations could mask early stages of edema or infiltrate.
--- NOTE | 2020-07-03 15:41 | ER ---
Nurse's Notes [facility] Name: Cathi Zaldivar Age: 39 yrs Sex: Female : 1980 Arrival Date: 07/03/2020 Time: 12:00 Bed 18 Private MD: Diagnosis: Acute tonsillitis Presentation: 07/03 12:53 Chief complaint: Patient states: Sore throat x 2 days, unable to have dialysis today, jl7 Dr. Morin's office sent to ER after talking to pt over the phone and pt reporting sore throat and shortness of breath on exertion since this morning. Coronavirus screen: shortness of breath, sore throat, Client presents with at least one sign or symptom that may indicate coronavirus-19. Standard/surgical mask placed on the client. Provider contacted for isolation considerations. Ebola Screen: No symptoms or risks identified at this time. Initial Sepsis Screen: Does the patient meet any 2 criteria? No. Patient's initial sepsis screen is negative. Does the patient have a suspected source of infection? No. Patient's initial sepsis screen is negative. Risk Assessment: Do you want to hurt yourself or someone else? Patient reports no desire to harm self or others. Onset of symptoms was July 02, 2020. Care prior to arrival: None. 12:53 Method Of Arrival: Wheelchair jl7 12:53 Acuity: JESSICA 3 jl7 Triage Assessment: 12:59 General: Appears in no apparent distress. uncomfortable, Behavior is calm, cooperative, jl7 appropriate for age. Pain: Complains of pain in THROAT Pain currently is 10 out of 10 on a pain scale. EENT: Throat has patchy exudate has enlarged tonsils. Respiratory: Reports shortness of breath on exertion Onset: The symptoms/episode began/occurred this morning, the patient has mild shortness of breath. UTILIZATION REVIEW COORDINATOR: 12:59 LMP N/A - Depo-provera jl7 Historical: - Allergies: 12:59 ambien; jl7 12:59 Codeine; jl7 12:59 Demerol; jl7 12:59 GUAIFENESIN; jl7 12:59 Lisinopril; jl7 12:59 Nitrofurantoin Macrocrystal; jl7 12:59 PENICILLINS; jl7 12:59 Prolixin; jl7 12:59 zolpidem tartrate; jl7 - Home Meds: 12:59 divalproex 500 mg Oral tab 2 times per day [Active]; doxazosin 4 mg Oral tab [Active]; jl7 gabapentin 100 mg Oral cap as needed [Active]; hydralazine 50 mg Oral tab [Active]; Lantus 100 unit/mL Sub-Q tab as needed [Active]; metoprolol tartrate 25 mg Oral tab 1 tab 2 times per day [Active]; Novolog 100 unit/mL Sub-Q tab [Active]; pravastatin Oral [Active]; sertraline 100 mg oral tab [Active]; tramadol 50 mg Oral tab 1 tab PRN [Active]; - PMHx: 12:59 chronic kidney disease; cyclic vomiting syndrome; Diabetes - NIDDM; ENCEPHALOPATHY; jl7 Gastroparesis; Dialysis; m-w-f; liver failure; PERIPHERAL NEUROPATHY; - PSHx: 12:59 Prosthetic eye; Tubal ligation; jl7 - Immunization history:: Adult Immunizations up to date. - Social history:: Smoking status: Patient reports the use of cigarette tobacco products, smokes one-half pack cigarettes per day. Screenin:52 Abuse screen: Denies threats or abuse. Nutritional screening: No deficits noted. jd3 Tuberculosis screening: No symptoms or risk factors identified. Fall Risk Ambulatory Aid- None/Bed Rest/Nurse Assist (0 pts). Gait- Normal/Bed Rest/Wheelchair (0 pts) Mental Status- Oriented to own ability (0 pts). Total Rios Fall Scale indicates No Risk (0-24 pts). Assessment: 13:47 General: Appears in no apparent distress. uncomfortable, Behavior is calm, cooperative, jd3 appropriate for age. Pain: Complains of pain in throat Quality of pain is described as sharp. Neuro: Level of Consciousness is awake, alert, obeys commands, Oriented to person, place, time, situation. Cardiovascular: Denies chest pain, Heart tones S1 S2 present Capillary refill < 3 seconds. Respiratory: Reports shortness of breath on exertion Airway is patent Respiratory effort is even, unlabored, Respiratory pattern is regular, symmetrical, Breath sounds are clear bilaterally. GI: Abdomen is round Abd is soft and non tender X 4 quads. : No signs and/or symptoms were reported regarding the genitourinary system. EENT: No signs and/or symptoms were reported regarding the EENT system. Derm: Skin is intact, Skin is dry, Skin is normal, Skin temperature is warm. Musculoskeletal: Circulation, motion, and sensation intact. Range of motion: intact in all extremities. 14:57 Reassessment: Patient appears in no apparent distress at this time. Patient and/or jd3 family updated on plan of care and expected duration. Pain level reassessed. Patient is alert, oriented x 3, equal unlabored respirations, skin warm/dry/pink. Patient states feeling better. 15:24 Reassessment: Patient appears in no apparent distress at this time. Patient and/or jd3 family updated on plan of care and expected duration. Pain level reassessed. Patient is alert, oriented x 3, equal unlabored respirations, skin warm/dry/pink. Patient states feeling better. 16:16 Reassessment: Patient appears in no apparent distress at this time. Patient and/or jd3 family updated on plan of care and expected duration. Pain level reassessed. Patient is alert, oriented x 3, equal unlabored respirations, skin warm/dry/pink. pt awaiting family for discharge home Patient states feeling better. 17:30 Reassessment: Patient appears in no apparent distress at this time. Patient and/or jd3 family updated on plan of care and expected duration. Pain level reassessed. Patient is alert, oriented x 3, equal unlabored respirations, skin warm/dry/pink. Patient states feeling better. Vital Signs: 12:53 BP 189 / 104; Pulse 103; Resp 16; Temp 100.3; Pulse Ox 100% ; Weight 77.6 kg; Height 5 jl7 ft. 1 in. (154.94 cm); Pain 10/10; 14:57 BP 181 / 82; Pulse 92; Resp 17 S; Pulse Ox 97% on R/A; jd3 15:23 BP 199 / 97; Pulse 100; Resp 15 S; Pulse Ox 96% on R/A; jd3 15:58 BP 170 / 86; Pulse 99; Resp 17 S; Pulse Ox 98% on R/A; jd3 17:30 BP 176 / 90; Pulse 98; Resp 17 S; Pulse Ox 99% on R/A; jd3 12:53 Body Mass Index 32.32 (77.60 kg, 154.94 cm) 7 ED Course: 12:00 Patient arrived in ED. ag5 12:57 Triage completed. jl7 12:59 Arm band placed on right wrist. 7 13:38 Strep Sent. 5 13:38 COVID swab sent to lab. Flu and/or RSV swab sent to lab. Strep swab sent to lab. [facility] 13:39 Peyman Negron, RN is Primary Nurse. jd3 13:52 Patient has correct armband on for positive identification. Bed in low position. Call jd3 light in reach. Side rails up X 1. Adult w/ patient. Pulse ox on. NIBP on. 13:53 Luis Ruvalcaba PA is PHCP. cp 13:53 Dinesh Stallworth MD is Attending Physician. cp 15:06 XRAY Chest (1 view) In Process Unspecified. EDMS 15:58 No provider procedures requiring assistance completed. Patient did not have IV access jd3 during this emergency room visit. Administered Medications: 14:22 Drug: Tylenol 500 mg Route: PO; jd3 15:10 Follow up: Response: No adverse reaction jd3 14:23 Drug: Lortab Liquid 10 ml Route: PO; jd3 15:10 Follow up: Response: No adverse reaction jd3 14:57 Drug: Zofran (Ondansetron) 4 mg Route: PO; jd3 15:50 Follow up: Response: No adverse reaction jd3 15:43 Drug: cloNIDine 0.2 mg Route: PO; jd3 16:17 Follow up: Response: No adverse reaction jd3 Outcome: 15:41 Discharge ordered by MD. cp 16:16 Discharged to home ambulatory, with family. jd3 16:16 Condition: stable 16:16 Discharge instructions given to patient, Instructed on discharge instructions, follow up and referral plans. medication usage, Demonstrated understanding of instructions, follow-up care, medications, Prescriptions given X 2. 17:30 Patient left the ED. jd3 Signatures: Dispatcher [employer] EDMS Luis Ruvalcaba PA PA cp Martinez, Maria 5 Sophie Rubio RN RN 7 Peyman Negron, RN RN jd3 Kp Sarah 5 Corrections: (The following items were deleted from the chart) 13:55 13:38 CORONAVIRUS+MR.LAB.BRZ drawn and sent. [facility] EDMS 13:55 13:38 Influenza Screen (A \T\ B)+BA.LAB.BRZ drawn and sent. [facility] EDMS 15:24 14:57 BP 181 / 82; Pulse 12bpm; Resp 17bpm; Spontaneous; Pulse Ox 97% RA; jd3 jd3 16:17 16:16 Reassessment: Patient appears in no apparent distress at this time. Patient jd3 and/or family updated on plan of care and expected duration. Pain level reassessed. Patient is alert, oriented x 3, equal unlabored respirations, skin warm/dry/pink. Patient states feeling better. jd3
--- NOTE | 2020-07-03 15:41 | EDPHYS ---
Physician Documentation [facility] Name: Cathi Zaldivar Age: 39 yrs Sex: Female : 1980 Arrival Date: 07/03/2020 Time: 12:00 Bed 18 Private MD: ED Physician Dinesh Stallworth HPI: 07/03 14:00 This 39 yrs old Female presents to ER via Wheelchair with complaints of cp Breathing Difficulty, Sore Throat, Headache, Trouble Walking. 14:00 The patient or guardian reports cough, that is intermittent, difficulty breathing. cp 14:00 Onset: The symptoms/episode began/occurred this morning. Associated signs and symptoms: cp Pertinent positives: diarrhea, fever, nausea, sore throat, Pertinent negatives: ear ache, active vomiting. 14:00 Severity of symptoms: in the emergency department the symptoms are unchanged, despite cp home interventions. Patient reports missing dialysis today and not taking blood pressure medication. 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 N/A - Depo-provera jl7 Historical: - Allergies: 12:59 ambien; jl7 12:59 Codeine; jl7 12:59 Demerol; jl7 12:59 GUAIFENESIN; jl7 12:59 Lisinopril; jl7 12:59 Nitrofurantoin Macrocrystal; jl7 12:59 PENICILLINS; jl7 12:59 Prolixin; jl7 12:59 zolpidem tartrate; jl7 - Home Meds: 12:59 divalproex 500 mg Oral tab 2 times per day [Active]; doxazosin 4 mg Oral tab [Active]; jl7 gabapentin 100 mg Oral cap as needed [Active]; hydralazine 50 mg Oral tab [Active]; Lantus 100 unit/mL Sub-Q tab as needed [Active]; metoprolol tartrate 25 mg Oral tab 1 tab 2 times per day [Active]; Novolog 100 unit/mL Sub-Q tab [Active]; pravastatin Oral [Active]; sertraline 100 mg oral tab [Active]; tramadol 50 mg Oral tab 1 tab PRN [Active]; - PMHx: 12:59 chronic kidney disease; cyclic vomiting syndrome; Diabetes - NIDDM; ENCEPHALOPATHY; jl7 Gastroparesis; Dialysis; m-w-f; liver failure; PERIPHERAL NEUROPATHY; - PSHx: 12:59 Prosthetic eye; Tubal ligation; jl7 - Immunization history:: Adult Immunizations up to date. - Social history:: Smoking status: Patient reports the use of cigarette tobacco products, smokes one-half pack cigarettes per day. ROS: 14:05 Constitutional: Positive for body aches, fever, Negative for poor PO intake. cp 14:05 Eyes: Negative for injury, pain, redness, and discharge. cp 14:05 ENT: Positive for difficulty swallowing, sore throat, Negative for drainage from ear(s), difficulty handling secretions. 14:05 Cardiovascular: Negative for chest pain. 14:05 Respiratory: Positive for cough, Negative for wheezing. 14:05 Abdomen/GI: Positive for nausea, diarrhea, Negative for constipation, active vomiting. 14:05 Skin: Negative for rash. 14:05 Neuro: Positive for headache, Negative for altered mental status, weakness. 14:05 All other systems are negative. Exam: 14:12 Constitutional: The patient appears in no acute distress, alert, awake, cp non-diaphoretic, non-toxic, well developed, well nourished. 14:12 Head/Face: Normocephalic, atraumatic. cp 14:12 Eyes: Periorbital structures: appear normal, Conjunctiva: normal, no exudate, no injection, Lids and lashes: appear normal, bilaterally. 14:12 ENT: External ear(s): are unremarkable, Ear canal(s): are normal, clear, TM's: bulging, is not appreciated, bilaterally, dullness, bilaterally, erythema, is not appreciated, bilaterally, Nose: is normal, Mouth: Lips: moist, Oral mucosa: moist, Posterior pharynx: Airway: no evidence of obstruction, patent, Tonsils: with erythema, with exudate, mild enlargement, Uvula: midline, erythema, that is mild. 14:12 Neck: ROM/movement: is normal, is supple, no meningismus, no nuchal rigidity. 14:12 Chest/axilla: Inspection: normal, Palpation: is normal, no crepitus, no tenderness. 14:12 Cardiovascular: Rate: tachycardic, Rhythm: regular. 14:12 Respiratory: the patient does not display signs of respiratory distress, Respirations: normal, no use of accessory muscles, no retractions, labored breathing, is not present, Breath sounds: decreased breath sounds, are not appreciated, stridor, is not appreciated, wheezing: is not appreciated. 14:12 Abdomen/GI: Inspection: abdomen appears normal, Palpation: abdomen is soft and non-tender, in all quadrants. 14:12 Skin: no rash present. 14:12 Neuro: Orientation: to person, place \T\ time. Mentation: is normal. Vital Signs: 12:53 BP 189 / 104; Pulse 103; Resp 16; Temp 100.3; Pulse Ox 100% ; Weight 77.6 kg; Height 5 7 ft. 1 in. (154.94 cm); Pain 10/10; 14:57 BP 181 / 82; Pulse 92; Resp 17 S; Pulse Ox 97% on R/A; jd3 15:23 BP 199 / 97; Pulse 100; Resp 15 S; Pulse Ox 96% on R/A; jd3 15:58 BP 170 / 86; Pulse 99; Resp 17 S; Pulse Ox 98% on R/A; jd3 17:30 BP 176 / 90; Pulse 98; Resp 17 S; Pulse Ox 99% on R/A; jd3 12:53 Body Mass Index 32.32 (77.60 kg, 154.94 cm) 7 MDM: 13:54 Patient medically screened. 14:30 Differential Diagnosis: Bronchitis Influenza Upper Respiratory Infection Pharyngitis cp Viral Syndrome Pneumonia Other COVID-19. 15:40 Data reviewed: vital signs, nurses notes, lab test result(s), radiologic studies, plain cp films, and as a result, I will discharge patient. 15:40 Counseling: I had a detailed discussion with the patient and/or guardian regarding: the cp historical points, exam findings, and any diagnostic results supporting the discharge/admit diagnosis, lab results, radiology results, to return to the emergency department if symptoms worsen or persist or if there are any questions or concerns that arise at home. Response to treatment: the patient's symptoms have markedly improved after treatment, and as a result, I will discharge patient. 07/03 13:04 Order name: Strep jl7 07/03 14:03 Order name: XRAY Chest (1 view); Complete Time: 15:16 cp 07/03 15:17 Interpretation: Report reviewed. cp 07/03 14:55 Order name: COVID-19/FLU A+B; Complete Time: 15:16 EDMS 07/03 15:06 Order name: Vital Signs: please update to include temp; Complete Time: 15:31 cp 07/03 15:31 Order name: PO challenge; Complete Time: 15:51 cp Administered Medications: 14:22 Drug: Tylenol 500 mg Route: PO; jd3 15:10 Follow up: Response: No adverse reaction jd3 14:23 Drug: Lortab Liquid 10 ml Route: PO; jd3 15:10 Follow up: Response: No adverse reaction jd3 14:57 Drug: Zofran (Ondansetron) 4 mg Route: PO; jd3 15:50 Follow up: Response: No adverse reaction jd3 15:43 Drug: cloNIDine 0.2 mg Route: PO; jd3 16:17 Follow up: Response: No adverse reaction jd3 Disposition: 18:08 Co-signature as Attending Physician, Dinesh Stallworth MD. rn Disposition: 07/03/20 15:41 Discharged to Home. Impression: Acute tonsillitis. - Condition is Stable. - Discharge Instructions: Tonsillitis. - Prescriptions for Zofran 4 mg Oral Tablet - take 1 tablet by ORAL route every 12 hours As needed; 20 tablet. clindamycin palmitate HCl 75 mg/5 mL Oral recon soln - take 20 milliliter by ORAL route every 6 hours for 10 days; 800 milliliter. - Medication Reconciliation Form, Thank You Letter, Antibiotic Education, Prescription Opioid Use form. - Follow up: Private Physician; When: 1 - 2 days; Reason: Recheck today's complaints. - Problem is new. - Symptoms have improved. Signatures: Dispatcher [employer] EDMS Dinesh Stallworth MD MD rn Page, Corey, PA PA cp Leal, Jahala RN RN jl7 Peyman Negron RN RN jd3 Corrections: (The following items were deleted from the chart) 13:55 13:05 Influenza Screen (A \T\ B)+BA.LAB.BRZ ordered. EDMS EDMS 13:55 13:05 CORONAVIRUS+MR.LAB.BRZ ordered. EDMS EDMS 17:30 15:41 07/03/2020 15:41 Discharged to Home. Impression: Acute tonsillitis. Condition is jd3 Stable. Prescriptions for Clindamycin HCl 300 mg Oral Capsule - take 1 capsule by ORAL route every 6 hours for 10 days; 40 capsule, Zofran 4 mg Oral Tablet - take 1 tablet by ORAL route every 12 hours As needed; 20 tablet. and Forms are Medication Reconciliation Form, Thank You Letter, Antibiotic Education, Prescription Opioid Use. Follow up: Private Physician; When: 1 - 2 days; Reason: Recheck today's complaints. Problem is new. Symptoms have improved. cp
[2020-07-03] MEDS ORDERED: cloNIDine HCL 0.1 MG TAB ONE (15:47)
[2020-07-03 17:35] VITALS: TEMP 100.3
[2020-07-03 17:40] VITALS: BP 176/90; O2SAT 99
== END 2020-07-03 17:30 | disposition home or self-care (01) ==
LOC: ER 11:57
DX: J03.90 Acute tonsillitis, unspecified (principal); E11.22 Type 2 diabetes mellitus with diabetic chronic kidney disease; N18.9 Chronic kidney disease, unspecified; F17.210 Nicotine dependence, cigarettes, uncomplicated; Z20.822 Contact with and (suspected) exposure to COVID-19; Z99.2 Dependence on renal dialysis; Z88.6 Allergy status to analgesic agent; Z88.0 Allergy status to penicillin; Z88.8 Allergy status to other drugs, medicaments and biological substances
CPT/HCPCS: 87070; 0240U; 71045; 99284; 87081

== ENCOUNTER 2020-07-20 20:06 | Observation (INO) | payer OTHER ==
--- OUTSIDE RECORDS SUMMARY | 2020-07-20 20:08 | XMS REPORT | Clinical Summary ---
:1980 Author Organization [facility] Address [address] [place] [address] Care Team Providers Name Role Phone Sharpvolodymyr [...] Not on file Results Not on fileafter 07/20/2019 Advance Directives For more information, please contact: [phone] Code Status Date Activated Date Inactivated Comments Full Code 01/03/2017 1:56 AM 01/07/2017 5:21 PM This code status was determined by: Patient
--- OUTSIDE RECORDS SUMMARY | 2020-07-20 20:19 | XMS REPORT | Continuity of Care Document ---
:1980 Author Organization [employer] Care Team Providers Name Role Phone [employer] Unavailable Un available Problems Problem Status Onset Classification Date Comments Sourc e Date Reported NEW EVALUATION [place] [facility] CONGESTION AMD Active 07/23/19 [facility] DIARRHEA [facility] ACUTE RESP Active 07/23/19 [facility] FAILURE [address] [place] [address] SOB/SWELLING Active 06/10/[address] CHF/RENAL DISEASE Active 06/10/[address] Center Discharge 06/26/19 06/28/2014 [facility] Diagnosis: 15 [facility] Gastroparesis Center ABDOMINAL PAIN, Active 06/26/19 [facility] [place] SEIZURES 14 [facility] ABD PAIN Active 04/14/[address] GASTROPERISIS Active 08/02/19 Baljinder as 13 [facility] Center ABDOMINAL PAIN Active 03/14/[address] NAUSEA, VOMITING Active 03/14/[address] Nausea and Resolved 11/29/19 Problem 08/02/2016 [facility] vomiting [address] [place] [address] (disorder) [facility] VOMITTING Active 11/28/[address] N/V INABILITY TO Active 11/28/19 [facility] TOLERATE PO [address] [place] [address] VOMITTING, HIGH Active 09/18/19 [facility] [place] BLOOD SUGAR [address] [place] [address] MRSA Active 09/01/19 Problem 03/16/2012 - [facility] [place] 12 2Problem added by Jodie scern Expert. [facility] [place] [facility] Methicillin Active 09/01/19 Problem 08/02/2016 09/01/11 - [facility] [place] resistant 12 Problem added by Bertin cern Expert. Medical Staphylococcus Cente r, aureus (organism[facility] Active 08/31/19 [facility] ABSCESS/HYPERGLYC 12 [facility] VOMITING, BLOOD Active 08/31/19 [facility] [place] SUGAR READINGS 12 [facility] Hypokalemia Active 08/23/19 Problem 03/16/2012 [place] [facility] Hypokalemia Resolved 08/23/19 [place] 08/02/[place] [facility] Disorder of Resolved 08/23/19 Problem 08/02/2016 Amisha lombardo magnesium Medical metabolism Center (disorder) Hyperglycemia Inactive 08/20/19 Problem 03/16/2012 [place] [facility] Hyperglycemia Resolved 08/20/19 Problem 08/02/2016 [place] ([place]order[place] Medical [place] DKA (diabetic Resolved 08/19/19 Problem 04/22/2013 [place] ketoacidoses[place] [facility] Ketoacidosis in Resolved 08/19/19 Problem 08/02/2016 [facility] diabetes mellitus [facility] dical (disorder) Center VOMITING Active 08/19/[address] DKA Active 08/19/[address] Hypoglycemia Inactive Problem 04/22/2013 (disorder) [facility] Hypomagnesemia Active Problem 04/22/2013 [place] [facility] Hypertension Active Problem 03/16/2012 [facility] Hypoglycemia Inactive Problem 03/16/2012 [facility] as Medical [facility] Nausea and Active Problem 03/16/2012 [facility] vomiting Medical [place] Diabetes mellitus Resolved Problem 08/02/2016 [facility] (disorder) [facility] Gastroparesis Resolved Problem 08/02/2016 [facility] [place] (disorder) [facility] Hypertensive Resolved Problem 08/02/2016 Baljinder as disorder, Medical systemic arterial Ce nter, (disorder) [facility] Psychiatric Resolved Problem 08/02/2016 [facility] disability [place] (finding) Seizure (finding) Resolved Problem 08/02/2016 [facility] Final: Acute 08/02/2016 Baljinder as respiratory Medical failure, Center unspecified whether with hypoxia or hypercapnia DMI KETOACD Active [facility] UNCONTROLD [facility] OTHER GENERAL Active Baljinder as [facility] HEART FAILURE, [place] [facility] ACUTE RESPIRATORY Active [facility] FAILURE, UN[facility] HYPOXI Center Medications Medication Details Route Status Patient Ordering Order Source Instructions Provider Date Furosemide 40 MG 40 mg = 1 Active 07[place]30/ [place] Oral Tablet tab, PO, 2017 Medical Daily, # 30 Center tab, 0 Refill(s), Pharmacy: [facility] [id number] Bumex 0.5 mg, No Longer [place] Route: PO, Active 2017 Medical Drug form: Center TAB, Daily, Dosing Weight 92.273, kg, Start date: 07/30/16 9:00:00 JOURNEYMAN GLAZIER, Duration: 30 day, Stop date: 08/28/16 9:00:00 JOURNEYMAN GLAZIER Lasix Notes: (Same No Longer [place] as: Lasix) Active 2017 Medical May cause [...] Total Volume: 1,000, Start date: 07/26/16 12:26:00 JOURNEYMAN GLAZIER, Duration: 30 day, Stop date: 08/25/16 12:25:00 JOURNEYMAN GLAZIER Sodium Chloride 500 mL, 500 Inactive Micki 0.154 MEQ/ML ml/hr, Infuse 2017 Medic al Injectable Over: 1 hr, Center Solution Route: IV, 500, Drug form: INJ, ONCE, Priority: STAT, Dosing Weight 92.273 kg, Start date: 07/26/16 7:30:00 JOURNEYMAN GLAZIER, Duration: 1 doses or times, Stop date: 07/26/16 7:30:00 JOURNEYMAN GLAZIER Insulin regular 60 units) Inactive Micki WASTE: [...] from _Date Insulin, Aspart, Notes: Roll Inactive [place] Human in palms of 2016 Medical hands gently; Center Do not shake vigorously. (Same as: NovoLOG) "single patient use only" WASTE: F/P - Black; E - Municipal Trash Bin Stable for 28 days at room temperature. Expires in days from _Date atorvastatin Notes: (Same No Longer [place] as: Lipitor) Active 2016 [facility] divalproex sodium Notes: (Same No Longer [place] as: Depakote Active 2016 Medical ER) Once Center daily dosing; indicated for migraines. Divalproex sodium extended-rele ase tab. Do not chew or crush. "Do Not Crush" Lasix Notes: (Same No Longer [facility] as: Lasix) Active 2017 [facility] Center MEDICATION WASTE Product Size: 40 mg Product Wasted: ___ mg Tylenol Notes: Max No Longer [place] acetaminophen Active 2016 Medical = 4000mg/day Center (4 gm/day). (Same as: Tylenol) Bupropion 150 mg, 1 No Longer [place] tab, Route: Active 2017 Medical PO, Drug Center form: ERTAB, Daily, Dosing Weight 92.273, kg, Start date: 07/24/16 9:00:00 JOURNEYMAN GLAZIER, Duration: 30 day, Stop date: 08/22/16 9:00:00 JOURNEYMAN GLAZIER 24 HR Divalproex Notes: (Same No Longer [place] Sodium 500 MG as: Depakote Active 2017 Medic al Extended Release ER) Center Tablet [Depakote] gabapentin 300 MG Notes: (Same No Longer [facility] Oral Capsule as: Active 2017 Medical Neurontin) Center Aspirin 81 MG Notes: Take No Longer [place] Chewable Tablet with food. Active 2017 Medic al Center Lasix Notes: (Same Inactive [facility] as: Lasix) 2017 Medical Center MEDICATION WASTE Product Size: 40 mg Product Wasted: ___ mg Zoloft Notes: (Same No Longer [facility] as: Zoloft) Active 2017 Medical Center Protonix Notes: Tablet [place] Longer [place] should not be Active 2017 Medical chewed or Center crushed. (Same as: Protonix) metoprolol 100 mg, 2 No Longer [facility] extended release tab, Route: Active 2017 Med ical PO, Drug Center form: ERTAB, Daily, Start date: 07/24/16 9:00:00 JOURNEYMAN GLAZIER, Duration: 30 day, Stop date: 08/22/16 9:00:00 JOURNEYMAN GLAZIER Insulin Glargine Notes: Same No Longer [place] 100 UNT/ML as: Lantus) Active 2017 Medical [...] Wasted: ___ mg Morphine Notes: (Same Inactive [facility] as:MORPhine 2017 Medical Sulfate) Center Insulin, Aspart, [...] _Date Glucagon 1 mg, Route: No Longer [place] IM, Drug Active 2016 Medical form: [place] PDR/INJ, PRN, Dosing Weight 92.273, kg, PRN Blood Glucose Results, Start date: 07/24/16 2:40:00 JOURNEYMAN GLAZIER, Duration: 30 day, Stop date: 08/23/16 2:39:00 JOURNEYMAN GLAZIER Dextrose 50% 25 gm, 50 mL, No Longer [place] Syringe Route: IVP, Active 2016 Medical Drug Form: [place] INJ, Dosing Weight 92.273, kg, PRN, PRN Blood Glucose Results, Start date: 07/24/16 2:40:00 JOURNEYMAN GLAZIER, Duration: 30 day, Stop date: 08/23/16 2:39:00 JOURNEYMAN GLAZIER Docusate Notes: (Same No Longer [place] as: Colace) Active 2017 Medical (Do Not Center Crush) Ondansetron Notes: (Same [place] Long[place] as: Zofran) Active 2017 Medical Center MEDICATION WASTE Product Size: 4 mg Product Wasted: ___ mg Lasix Notes: (Same Inactive [facility] as: Lasix) 2017 Medical Center MEDICATION WASTE Product Size: 40 mg Product Wasted: ___ mg Aspirin Notes: Take No Longer [facility] with food. Active 2017 Medical Center Prednisone Notes: Take Inactive [facility] with food. 2017 Medical [place] Albuterol 0.833 Notes: (Same No Longer [place] MG/ML / as: Duoneb) Active 2017 Medical Ipratropium Center [place] 0.167 MG/ML Inhalant Solution [DuoNeb] Furosemide 40 [...] 100 mg 100 mg = 1 Active [facility] oral tablet, tab, PO, 2016 Medical extended release Daily, # [address] tab, 0 Refill(s) Hydralazine 100 mg = 1 Active [facility] Hydrochloride 100 tab, PO, BID, 2016 Medical MG Oral Tablet # 60 tab, 0 Cente r Refill(s) 200 ACTUAT 2 puff, Active [facility] Albuterol 0.09 INHALATION, 2016 Medic al MG/ACTUAT Metered PRN, PRN as Ce nter Dose Inhaler needed for wheezing, use as needed for shortness of breath or wheezing, # 8 gm, 0 Refill(s) Aspirin 81 MG 81 mg = 1 Active [facility] Chewable Tablet tab, PO, 2015 Medical Daily, # 30 Center tab, 0 Refill(s) Hydroxyzine 50 mg = 1 Active [facility] Hydrochloride 50 cap, PO, TID, 2015 M edical MG Oral Capsule X 30 day, # Cent er 90 cap, 0 Refill(s) losartan 25 mg 25 mg = 1 [place] oral tablet tab, PO, 2015 Medical Daily, # 30 Center tab, 0 Refill(s) Lasix Notes: (Same Inactive 06/15[facility] as: Lasix) 2016 Medical May cause GI Center upset. Give with food or milk. Magnesium Oxide Notes: (Same Inactive [facility] as: [facility]-Ox 2016 Medical 400) [place] Magnesium oxide [id number] elemental magnesium Dose=____mg magnesium oxide (___mg elemental magnesium) Magnesium Oxide Notes: (Same Inactive 06/13[facility] as: [facility]-Ox 2016 Medical 400) [place] Magnesium oxide [id number] elemental magnesium Dose=____mg magnesium oxide (___mg elemental magnesium) 24 HR Nifedipine Notes: (Same Inactive H [place] 30 MG Extended as: Adalat 2015 Medica l Release Tablet CC, Procardia [address] [Procardia] XL) Give on empty stomach. Take 1 hour before or 2 hours after meal; "Avoid grapefruit and grapefruit juice". Do not crush hydrALAZINE 50 mg Notes: (Same No Longer [place] oral tablet as: Active 2015 Medical Apresoline) Center May interfere w/enteral feedings Take With Food Wellbutrin XL Notes: (Same No Longer [place] as: Active 2015 Medical Wellbutrin Center XL) "Do Not Crush" Norvasc Notes: (Same Inactive [place] as: Norvasc) 2016 [facility] Center Insulin Glargine Notes: Same No Longer [place] 100 UNT/ML as: Lantus) Active 2015 Medical Injectable Do not hold Center Solution [Lantus] insulin without contacting prescriber WASTE: F/P - Black; E - Municipal Trash Bin 1 ML paliperidone IM, qMonth, 0 Active [place] palmitate 156 Refill(s) 2015 Medical MG/ML Prefilled Center Syringe [Invega] amLODIPine 10 mg 10 mg = 1 No Longer [place] oral tablet tab, PO, Active 2015 Medical Daily, 0 Center Refill(s) pravastatin 40 mg 40 mg = 1 No Longer [place] oral tablet tab, PO, Active 2015 Medical Daily, 0 Center Refill(s) Sertraline 100 MG 200 mg = 2 Active [place] Oral Tablet tab, PO, 2016 Medical [Zoloft] Daily, 0 Center Refill(s) pantoprazole 40 40 mg = 1 Active Baljinder as MG Enteric Coated tab, PO, 2016 Medic al Tablet [Protonix] Daily, 0 Cente r Refill(s) gabapentin 300 MG 1 CAP PO BID Active H [place] Oral Capsule AND 1 CAP AT 2016 [...] Longer [place] as: Lipitor) Active 2016 [facility] Lactulose Notes: (Same [place] Long[place] as:Chronulac) Active 2016 [facility] Furosemide Notes: (Same No Longer Baljinder as as: Lasix) Active 2016 [facility] Center MEDICATION WASTE Product Size: 40 mg Product Wasted: ___ mg Aspirin 81 MG Notes: Take No Longer [place] Chewable Tablet with food. Active 2015 [facility] al [place] gabapentin 300 MG Notes: (Same No Longer [place] Oral Capsule as: Active 2016 [facility] Neurontin) [place] Divalproex Sodium Notes: (Same No Longer [place] 500 MG Enteric as: Depakote Active 2015 Medi tawnya Coated Tablet ER) Once Center [Depakote] daily dosing; indicated for migraines. Divalproex sodium extended-rele ase tab. Do not chew or crush. "Do Not Crush" Aspirin 81 mg, Route: No Longer [place] PO, Drug Active 2015 Medical form: ECTAB, [place] Daily, Dosing Weight 86.364, kg, Start date: 06/11/16 9:00:00 JOURNEYMAN GLAZIER, Duration: 30 day, Stop date: 07/10/16 9:00:00 JOURNEYMAN GLAZIER Insulin Glargine Notes: Same No Longer H [...] as: Duoneb) Active 2016 Medical Ipratropium Center [place] 0.167 MG/ML Inhalant Solution [DuoNeb] gabapentin 300 MG 300 mg, Inactive [place] Oral Capsule Route: PO, 2016 Medical Drug form: Center CAP, Q12H, Dosing Weight 86.364, kg, (CrCl 30 - 59 ml/min), Start date: 06/10/16 21:00:00 JOURNEYMAN GLAZIER, Duration: 30 day, Stop date: 07/10/16 9:00:00 JOURNEYMAN GLAZIER divalproex sodium Notes: (Same No Longer [place] [...] Blood Glucose Results, Start date: 06/10/16 18:50:00 JOURNEYMAN GLAZIER, Duration: 30 day, Stop date: 07/10/16 18:49:00 JOURNEYMAN GLAZIER Glucagon 1 mg, Route: No Longer [place] IM, Drug Active 2015 Medical form: Center PDR/INJ, PRN, Dosing Weight 86.364, kg, PRN Blood Glucose Results, Start date: 06/10/16 18:50:00 JOURNEYMAN GLAZIER, Duration: 30 day, Stop date: 07/10/16 18:49:00 JOURNEYMAN GLAZIER Hydralazine Notes: (Same [place] Longer [place] [...] Center 86.364, kg, Start date: 06/10/16 18:06:00 JOURNEYMAN GLAZIER, Stop date: 06/10/16 18:06:00 JOURNEYMAN GLAZIER hydrOXYzine Notes: (Same [place] Long[place] pamoate as: Vistaril) Active 2015 Medical Center Furosemide 60 mg, Route: Inactive Baljinder as IVP, Drug 2015 Medical form: INJ, Center ONCE, Dosing Weight 86.364, kg, Start date: 06/10/16 16:32:00 JOURNEYMAN GLAZIER, Stop date: 06/10/16 16:32:00 JOURNEYMAN GLAZIER Lasix Notes: (Same Inactive [place] as: Lasix) 2015 Medical Center MEDICATION WASTE Product Size: 40 mg Product Wasted: _0__ mg Albuterol 0.833 Notes: (Same No Longer 06/10/ H [place] MG/ML / as: Duoneb) Active 2015 [facility] Ipratropium [place] 0.167 MG/ML Inhalant Solution [DuoNeb] Promethazine 25 mg = 1 Active [facility] Hydrochloride 25 supp, SD, 2015 Medic al MG Rectal Q6H, Nausea [...] Erythromycin 500 = 1 tab, PO, Active [facility] MG Enteric Coated Q6H, # 40 2014 Medi [place] Tablet tab, 0 Center Refill(s) Hydromorphone Notes: Same Inactive [place] as: Dilaudid 2014 [facility] hydrOXYzine 0 Refill(s) Active [facility] pamoate [address] [place] [address] Dicyclomine 0 Refill(s) Active [address] Ondansetron 0 Refill(s) Active [address] Benztropine 0 Refill(s) Active [address] Clonidine 0 Refill(s) Active [address] Zoloft 0 Refill(s) Active [address] Metoclopramide 0 Refill(s) [place] [address] [place] [address] Erythromycin 0 Refill[place] [address] [place] [address] Tramadol 0 Refill(s) Active [address] Depakote 0 Refill(s) Active [address] quetiapine 0 Refill(s) Active [address] Sodium Chloride 2,000 mL, Inactive [place] 0.154 MEQ/ML 1,000 ml/hr, 2014 Medica l Injectable Infuse Over: Center Solution 2 hr, Route: IV, 2,000, Drug form: INJ, ONCE, Priority: STAT, Dosing Weight 75 kg, Start date: 06/26/14 4:56:00, Duration: 1 doses or times, Stop date: 06/26/14 4:56:00 Lorazepam Notes: (Same Inactive [facility] as: Ativan) [address] [place] [address] Metoclopramide Notes: (Same Inactive [facility] as: Reglan) [address] [place] [address] Zofran ODT 4 mg 4 mg, 1 tab, Active [facility] oral tablet, PO, BID, PRN, 2012 [facility] disintegrating Dissolve tab under tongue, 10 tab, Nausea and Vomiting, Substitution AllowedDissol ve tab under tongue Saline Flush 0.9% 5 mL, Route: No Longer [place] IVP, Drug Active 2012 [facility] Form: INJ, Dosing Weight 63.636, kg, PRN, PRN Line Flush, Start date: 04/14/13 23:10:00, Duration: 24 hr, Stop date: 04/15/13 23:09:00(Same as: BD Posiflush) morphine Sulfate 4 mg, Route: No Longer [place] IVP, ONCE, Active 2012 [facility] Dosing Weight 63.636, kg, Priority: STAT, Start date: 04/14/13 23:10:00, Stop date: 04/14/13 23:10:00 ketorolac 30 mg, Route: No Longer [place] IVP, ONCE, 2012 [facility] Dosing Weight 63.636, kg, Priority: STAT, Start date: 04/14/13 23:10:00, Stop date: 04/14/13 23:10:00 ondansetron 4 mg, Route: No Longer [place] IVP, ONCE, 2012 [facility] Dosing Weight 63.636, kg, Priority: STAT, Start date: 04/14/13 23:10:00, Stop date: 04/14/13 23:10:00 Sodium Chloride 1,000 mL, No Longer [place] 0.9% IV 1,000 mL Rate: 125 Active 2012 [facility] ml/hr, Infuse over: 8 hr, Route: IV, Dosing Weight 63.636 kg, Total Volume: 1,000, Start date: 04/14/13 23:10:00, Duration: 30 day, Stop date: 05/14/13 23:09:00 morphine Sulfate 5 mg, Route: IVP No Longer [place] IVP, ONCE, 2011 [facility] Dosing Weight 58.636, kg, Priority: STAT, Start date: 03/14/12 20:15:00, Stop date: 03/14/12 20:15:00 Sodium Chloride 500 mL, Rate: IV No Longer [facility] 0.9% (Bolus) IV 500 ml/hr, 2011 [facility] 500 mL Infuse over: 1 hr, Route: IV, kg, Total Volume: 500, Bolus Dose, Priority: STAT, Start date: 03/14/12 18:45:00, Duration: 1 doses or times, Stop date: 03/14/12 19:44:00 ondansetron 4 mg, Route: IVP No Longer [place] IVP, ONCE, 2011 [facility] Dosing Weight 58.636, kg, Priority: STAT, Start date: 03/14/12 17:19:00, Stop date: 03/14/12 17:19:00 morphine Sulfate 5 mg, Route: IVP No Longer [place] IVP, ONCE, 2011 [facility] Dosing Weight 58.636, kg, Priority: STAT, Start date: 03/14/12 17:19:00, Stop date: 03/14/12 17:19:00 pantoprazole 40 mg, Route: IVP No Longer [place] IVP, ONCE, 2011 [facility] Dosing Weight 58.636, kg, For IV push reconstitute with 10 ml 0.9% sodium chloride and push over at least 3 minutes, Priority: STAT, Start date: 03/14/12 17:19:00, Stop date: 03/14/12 17:19:00 Sodium Chloride 500 mL, Rate: IV No Longer [place] 0.9% (Bolus) IV 1,000 ml/hr, Active 2011 [facility] 500 mL Infuse over: 0.5 hr, Route: IV, kg, Total Volume: 500, Bolus dose, Priority: STAT, Start date: 03/14/12 17:19:00, Duration: 1 doses or times, Stop date: 03/14/12 17:48:00 Reglan 10 mg oral 10 mg, 1 tab, PO Active [facility] tablet PO, 2011 Medical QID-Before Center Meals, 120 tab, 1, 1, Substitution Allowed insulin 10 unit, 0.1 SUB-Q No Longer [facility] isophane-NPH mL, Route: Active 2011 Medical SUB-Q, Drug Center form: INJ, Bedtime, Start date: 11/29/11 21:00:00, Duration: 30 day, Stop date: 12/28/11 21:00:00 Insulin regular 8 unit, 0.08 SUB-Q No Longer [facility] mL, Route: Active 2011 Medical SUB-Q, Drug Center form: SOLN, Bedtime, Start date: 11/29/11 21:00:00, Duration: 30 day, Stop date: 12/28/11 21:00:00 trazodone 100 mg 200 mg, 2 PO No Longer [facility] oral tablet tab, Route: Active 2011 Medical PO, Drug Center form: TAB, Bedtime, Start date: 11/29/11 21:00:00, Duration: 30 day, Stop date: 12/28/11 21:00:00 Geodon 120 mg, 3 PO No Longer [facility] cap, Route: Active 2011 Medical PO, Drug Center form: CAP, Bedtime, Start date: 11/29/11 21:00:00, Duration: 30 day, Stop date: 12/28/11 21:00:00 amLODipine 5 mg, 1 tab, PO No Longer [facility] [place] Route: PO, Active 2011 Medical Drug form: Center TAB, ONCE, Priority: NOW, Start date: 11/29/11 20:11:00, Stop date: 11/29/11 20:11:00 morphine Sulfate 2 mg, Route: IVP No Longer Omidvar [facility] IVP, ONCE, Active 2011 Medical Start date: Center 11/29/11 16:33:00, Stop date: 11/29/11 16:33:00 morphine Sulfate 2 mg, 0.5 mL, IVP No Longer Omidvar [facility] Route: IVP, Active 2011 Medical Drug form: Center INJ, ONCE, Start date: 11/29/11 16:32:00, Stop date: 11/29/11 16:32:00 Tylenol 650 mg, 2 PO No Longer Omidvar [facility] tab, Route: Active 2011 Medical PO, [...] 10 unit, 0.1 SUB-Q No Longer Gunnar [facility] mL, Route: Active 2011 Medical SUB-Q, [...] Route: PO, Active 2011 Medical Drug form: [place] TAB, Daily, Start date: 11/29/11 9:00:00, Duration: 30 day, Stop date: 12/28/11 9:00:00 insulin aspart 10 unit, 0.1 SUB-Q No Longer Gunnar 11/28/ [facility] [place] mL, Route: Active 2011 Medical SUB-Q, Drug Center form: SOLN, TID-Before Meals, PRN Blood Glucose Results, Start date: 11/29/11 1:30:00, Duration: 30 day, Stop date: 12/29/11 1:29:00 Dextrose 50% 25 gm, 50 mL, IVP No Longer Gunnar [facility] Syringe Route: IVP, Active 2011 Medical [...] ml, Route: IVP No Longer Gunnar 11/28/ [facility] IVP, Drug Active 2011 Medical Form: INJ, Center PRN, PRN Line Flush, Start date: 11/29/11 1:28:00, Duration: 30 day, Stop date: 12/29/11 1:27:00 ondansetron 4 mg, 2 mL, IVP No Longer [place] Route: IVP, Active 2011 Medical Drug form: [place] INJ, Q8H, PRN Nausea & Vomiting, Start date: 11/29/11 1:28:00, Duration: 30 day, Stop date: 12/29/11 1:27:00 Reglan 10 mg, 2 mL, IVP No Longer [facility] 11/28[facility] Route: IVP, Active 2011 Medical Drug form: [place] INJ, Q6H, Priority: STAT, Start date: 11/29/11 1:28:00, Duration: 30 day, Stop date: 12/29/11 0:00:00 Protonix 40 mg, Route: IV No Longer [facility] Baljinder as IV, Drug Active 2011 Medical form: INJ, Center ONCE, Priority: STAT, Start date: 11/29/11 1:28:00, Stop date: 11/29/11 1:28:00 metoclopramide 10 mg, 2 mL, IVP No Longer [facility] 11/28[facility] Route: IVP, Active 2011 Medical Drug form: Center INJ, ONCE, Priority: STAT, Start date: 11/28/11 23:01:00, Stop date: 11/28/11 23:01:00 Zofran 4 mg, 2 mL, IVP No Longer [facility] 11/28[facility] Route: IVP, Active 2011 Medical Drug form: [place] INJ, ONCE, Priority: STAT, Start date: 11/28/11 21:31:00, Stop date: 11/28/11 21:31:00 NS (Bolus) IV 1,000 mL, IV No Longer [facility] Baljinder as 1,000 mL Rate: 1,000 2011 Medical ml/hr, Infuse Center over: 1 hr, Route: IV, Dosing Weight 57.273 kg, Total Volume: 1,000, Start date: 11/28/11 17:48:00, Duration: 30 day, Stop date: 12/28/11 17:47:00 NS (Bolus) IV 1,000 mL, IV No Longer Domenico Abljinder as 1,000 mL Rate: 1,000 2011 Medical ml/hr, Infuse Center over: 1 hr, Route: IV, Dosing Weight 57.273 kg, Total Volume: 1,000, Start date: 11/28/11 15:36:00, Duration: 30 day, Stop date: 12/28/11 15:35:00 Ativan 2 mg, 1 mL, IVP No Longer Domenico [place] Route: IVP, Active 2011 Medical Drug form: Center INJ, ONCE, Priority: STAT, Start date: 11/28/11 15:35:00, Stop date: 11/28/11 15:35:00 Novolin R 100 8 unit, SUB-Q Active [facility] Baljinder as units/mL SUB-Q, Q12H, 2011 Medical injectable 2 vial, Center solution Substitution Allowed, SOLN Novolin N 100 10 unit, SUB-Q Active [facility] [place] units/mL SUB-Q, 2011 Medical subcutaneous Bedtime, 10 Center injection ml, Substitution Allowed, SUSP Novolin N 100 14 unit, SUB-Q Active [facility] [place] units/mL SUB-Q, QAM, 1 2011 Medical subcutaneous vial, Center injection Substitution Allowed, SUSP magnesium oxide 400 mg, [address] [facility] tab, Route: Active 2011 Medical PO, Drug Center form: TAB, ONCE, Priority: STAT, Start date: 09/18/11 9:55:00, Stop date: 09/18/11 9:55:00 Insulin regular 8 unit, 0.08 SUB-Q No Longer [facility] 09/17 [facility] mL, Route: Active 2011 Medical SUB-Q, Drug Center form: SOLN, ONCE, Priority: STAT, Start date: 09/18/11 9:22:00, Stop date: 09/18/11 9:22:00 Lactated Ringers 1,000 mL, IV No Longer [facility] ([place]) IV 1,000 Rate: 1,000 Active 2011 Med ical mL ml/hr, Infuse Center over: 1 hr, Route: IV, Total Volume: 1,000, [place] Dose, Priority: STAT, Start date: 09/18/11 9:16:00, Duration: 1 doses or times, Stop date: 09/18/11 10:15:00 Sodium Chloride 1,000 mL, IV No Longer [facility] 0.9% (Bolus) IV Rate: 1,000 Active [...] 100 mg 100 mg, 1 PO Active [place] oral capsule cap, PO, BID, 2011 Medic al 60 cap, Center Substitution Allowed, CAP clindamycin 150 300 mg, 2 PO Active [place]han [place] mg oral capsule cap, PO, Q8H, 2011 Me dical 30 cap, Center Substitution Allowed, CAP [place] 10/325 oral 1 tab, PO, PO Active Zeeshan [place] tablet Q4H, PRN, 2011 Medical tab, Pain, Center Substitution Allowed, Maintenance, TAB [place] 10/325 oral 1 tab, Route: PO No [...] naloxone 0.04 mg, 0.1 IVP No Longer [place] Micki mL, Route: Active 2011 Medical IVP, Drug Center form: INJ, Q2MIN, PRN Narcotic Reversal, Start date: 09/07/11 9:19:00, Duration: 8 doses or times, Stop date: Limited # of times ondansetron 4 mg, 2 mL, IVP No Longer [place] Baljinder as Route: IVP, Active 2011 Medical Drug form: Center INJ, ONCE, PRN Nausea & Vomiting, Start date: 09/07/11 9:19:00 hydromorphone 0.5 mg, 0.25 IVP No Longer [place] Micki mL, Route: Active 2011 Medical IVP, [...] Ringers 1,000 mL, IV No Longer Omidvar [place] IV 1,000 mL Rate: 125 Active 2011 Medical ml/hr, Infuse Center over: 8 hr, Route: IV, Dosing Weight 68.182 kg, Total Volume: 1,000, Start date: 09/07/11 9:06:00, Duration: 30 day, Stop date: 10/07/11 9:05:00 clindamycin 600 mg, IVPB No Longer Arias [facility] Route: IVPB, Active 2011 Medical ONCE, [...] 8.6 mg, 1 PO No Longer Omidvar [place] tablet tab, Route: Active 2011 Medical PO, [...] 40 mEq, 2 PO No Longer Omidvar [facility] chloride tab, Route: Active 2011 Medical PO, Drug Center form: ERTAB, ONCE, Start date: 09/05/11 9:11:00, Stop date: 09/05/11 9:11:00 Dulcolax Laxative 10 mg, 2 tab, PO No Longer Wong [place] Route: PO, Active 2011 Medical Drug form: Center ECTAB, Daily, PRN Constipation, Priority: NOW, Start date: 09/04/11 23:00:00, Duration: 30 day, Stop date: 10/04/11 22:59:00 Zofran 4 mg, 2 mL, IV No Longer [place] Route: IV, Active 2011 Medical Drug form: Center INJ, Q4H, PRN as needed for nausea/vomiti ng, Priority: NOW, Start date: 09/04/11 18:11:00, Duration: 30 day, Stop date: 10/04/11 18:10:00 [place] 10/325 oral 1 tab, Route: PO No Longer Dez [facility] tablet PO, Drug Active 2011 Medical [...] Duration: 30 day, Stop date: 10/04/11 9:49:00 [place] 10/325 oral 1 tab, Route: PO No [...] 40 mEq, 2 PO No Longer Omidvar [facility] chloride tab, Route: Active 2011 Medical PO, Drug Center form: ERTAB, ONCE, Start date: 09/03/11 8:39:00, Stop date: 09/03/11 8:39:00 [place] 5/325 oral 1 tab, Route: PO No Longer Kavon 08/19 [facility] tablet PO, Drug Active 2011 Medical Form: TAB, Center Q4H, Start date: 09/03/11 0:00:00, Duration: 30 day, Stop date: 10/02/11 20:00:00 Geodon 120 mg, 3 PO No Longer Anabelle [facility] cap, Route: Active 2011 Medical PO, [...] Route: PO, Active 2011 Medical Drug form: [place] ERCAP, Daily, Give qAM after today's dose., Start date: 09/02/11 12:00:00, Duration: 30 day, Stop date: 10/02/11 9:00:00 [place] 5/325 oral 1 tab, Route: PO No Longer Kavon 08/[address] [facility] [place] tablet PO, Drug Active 2011 Medical Form: TAB, [place] Q4H, PRN Pain, Start date: 09/02/11 11:25:00, Duration: 30 day, Stop date: 10/02/11 11:24:00 magnesium sulfate 4 gm, 50 mL, IVPB No Longer Omidvar [facility] Route: IVPB, Active 2011 Medical Drug form: [place] INJ, ONCE, Start date: 09/02/11 11:15:00, Stop date: 09/02/11 11:15:00 Lovenox 40 mg, 0.4 SUB-Q No Longer Movva [facility] mL, Route: Active 2011 Medical SUB-Q, Drug Center form: INJ, Daily, Start date: 09/02/11 9:00:00, Duration: 30 day, Stop date: 10/01/11 9:00:00 vancomycin 1 gm, Route: IVPB No Longer Anabelle Baljinder as IVPB, Drug Active 2011 Medical form: INJ, [place] [id number], Start date: 09/02/11 9:00:00, Duration: 30 day, Stop date: 10/01/11 21:00:00 clindamycin 600 mg, 4 mL, IVPB No Longer [place]abelle [place] (SCIP[place] Route: IVPB, Active 2011 Medical [id number], Start Center date: 09/02/11 5:00:00, Duration: 3 doses or times, Stop date: 09/02/11 21:00:00 clindamycin 600 mg, 4 mL, IVPB No Longer [place] Micki (SCIP) Route: IVPB, Active 2011 [facility] [id number], Start Center date: 09/01/11 23:00:00, Duration: 3 doses or times, Stop date: 09/02/11 15:00:00 insulin 15 unit, 0.15 SUB-Q No Longer Omidvar [facility] isophane-NPH mL, Route: Active 2011 Medical [...] hydromorphone 0.5 mg, IVP No Longer Feliciano [facility] Route: IVP, Active 2011 Medical Q5Min, PRN Center Pain Score 4-6, Start date: 09/01/11 20:07:00, Duration: 5 doses or times, Stop date: Limited # of times naloxone 0.04 mg, IVP No Longer Feliciano [facility] Route: IVP, Active 2011 Medical Q2MIN, PRN Center Narcotic Reversal, Start date: 09/01/11 20:07:00, Duration: 8 doses or times, Stop date: Limited # of times flumazenil 0.2 mg, IVP No Longer Feliciano [facility] Route: IVP, Active 2011 Medical PRN, [...] Drug Active 2011 Medical form: INJ, Center [id number], Start date: 09/01/11 20:00:00, Duration: 30 day, Stop date: 10/01/11 8:00:00 Lactated Ringers 1,000 mL, IV No Longer Wong [facility] IV 1,000 mL Rate: 125 Active 2011 Medical ml/hr, Infuse Center over: 8 hr, Route: IV, Dosing Weight 68.2 kg, Total Volume: 1,000, Start date: 09/01/11 19:55:00, Duration: 30 day, Stop date: 10/01/11 19:54:00 vancomycin 1 gm, Route: IVPB No Longer Movva Baljinder as IVPB, Drug Active 2011 Medical form: INJ, Center [id number], Start date: 09/01/11 19:00:00, Duration: 30 day, Stop date: 10/01/11 7:00:00 insulin aspart 6 unit, 0.06 SUB-Q No Longer Movva [facility] mL, Route: Active 2011 Medical SUB-Q, Drug Center form: SOLN, TID-Before Meals, PRN Blood Glucose Results, Start date: 09/01/11 18:23:00, Duration: 30 day, Stop date: 10/01/11 18:22:00 glucagon 1 mg, Route: IM No Longer Movva [facility] IM, Drug Active 2011 Medical form: [place] PDR/INJ, PRN, PRN Blood Glucose Results, Start date: 09/01/11 18:23:00, Duration: 30 day, Stop date: 10/01/11 18:22:00 Dextrose 50% 25 gm, 50 mL, IVP No Longer Movva [facility] Syringe Route: IVP, Active 2011 Medical Drug Form: [place] INJ, PRN, PRN Blood Glucose Results, Start date: 09/01/11 18:23:00, Duration: 30 day, Stop date: 10/01/11 18:22:00 morphine Sulfate 2 mg, 1 mL, IVP No Longer Beni [facility] Route: IVP, Active 2011 Medical Drug form: [place] INJ, Q4H, PRN Severe Pain, Start date: 09/01/11 16:14:00, Stop date: 10/01/11 16:13:00 Lactated Ringers 1,000 mL, IV No Longer [place] [facility] IV 1,000 mL Rate: 100 Active 2011 Medical ml/hr, Infuse Center over: 10 hr, Route: IV, Dosing Weight 68.182 kg, Total Volume: 1,000, Start date: 09/01/11 14:03:00, Duration: 30 day, Stop date: 10/01/11 14:02:00 morphine Sulfate 4 mg, 1 mL, IVP No Longer [facility] Route: IVP, Active 2011 Medical Drug form: Center INJ, ONCE, Start date: 09/01/11 12:13:00, Stop date: 09/01/11 12:13:00 Lactated Ringers 2,000 mL, IV No Longer [facility] ([place]) IV 2,000 Rate: 100 Active 2011 Medic al mL ml/hr, Infuse Center over: 20 hr, Route: IV, Dosing Weight 68.18 kg, Total Volume: 2,000, Start date: 09/01/11 10:42:00, Duration: 1 doses or times, Stop date: 09/02/11 6:41:00 Insulin regular 8 unit, 0.08 SUB-Q No Longer [facility] mL, Route: Active 2011 Medical SUB-Q, Drug Center form: SOLN, ONCE, Priority: STAT, Start date: 09/01/11 10:28:00, Stop date: 09/01/11 10:28:00 Sodium Chloride 1,000 mL, IV No Longer [facility] [place] 0.9% ([place]) IV Rate: 1,000 Active 2011 Medi ta[place] 1,000 mL ml/hr, Infuse Center over: 1 hr, Route: IV, Dosing Weight 68.18 kg, Total Volume: 1,000, [place] Dose, Priority: STAT, Start date: 09/01/11 9:53:00, Duration: 1 doses or times, Stop date: 09/01/11 10:52:00 morphine Sulfate 4 mg, 1 mL, IVP No Longer [place] [facility] Route: IVP, Active 2011 Medical Drug form: Center INJ, ONCE, Start date: 09/01/11 8:28:00, Stop date: 09/01/11 8:28:00 clindamycin 600 mg, 4 mL, IVPB No Longer [place]eep [place] Route: IVPB, Active 2011 Medical Drug form: Center INJ, ONCE, Priority: STAT, Start date: 09/01/11 8:20:00, Stop date: 09/01/11 8:20:00 Sodium Chloride 1,000 mL, IV No Longer [place] 0.9% (Bolus) IV Rate: 1,000 Active 2011 Medi tawnya 1000 mL ml/hr, Infuse Center over: 1 hr, Route: IV, Dosing Weight 68.182 kg, Total Volume: 1,000, [place] Dose, Priority: STAT, Start date: 09/01/11 5:41:00, Duration: 1 doses or times, Stop date: 09/01/11 6:40:00 ondansetron 4 mg, Route: IVP No Longer [place] IVP, Drug Active 2011 Medical form: INJ, Center ONCE, Priority: STAT, Start date: 09/01/11 4:06:00, Stop date: 09/01/11 4:06:00 morphine Sulfate 4 mg, Route: IVP No Longer [place] IVP, ONCE, Active 2011 Medical Priority: [...] regular 8 unit, 0.08 IVP No Longer [place] mL, Route: Active 2011 Medical IVP, Drug Center form: SOLN, ONCE, Priority: STAT, Start date: 09/01/11 3:30:00, Stop date: 09/01/11 3:30:00 Sodium Chloride 1,000 mL, IV No Longer [place] 0.9% (Bolus) IV Rate: 1,000 Active 2011 [facility] tawnya 1,000 mL ml/hr, Infuse Center over: 1 hr, Route: IV, Dosing Weight 68.182 kg, Total Volume: 1,000, [place] Dose, Priority: STAT, Start date: 09/01/11 2:29:00, Duration: 1 doses or times, Stop date: 09/01/11 3:28:00 potassium 40 mEq, 2 PO No Longer [facility] chloride tab, Route: Active 2011 Medical PO, Drug Center form: ERTAB, BID, Start date: 08/23/11 9:00:00, Duration: 2 doses or times, Stop date: 08/23/11 17:00:00 amLODipine 5 mg 5 mg, 1 tab, PO Active [facility] oral tablet PO, Daily, 30 2011 Medica l tab, 3, 3, Center Substitution Allowed, TAB lisinopril 20 mg 40 mg, 2 tab, PO Active [facility] H [place] oral tablet PO, Daily, 60 2011 Medica l tab, 3, 3, Center Substitution Allowed, TAB Novolin N 100 18 Units, SUB-Q Active [facility] units/mL SUB-Q, BID, 3 2011 Medical subcutaneous vial, 3, 3, Center injection Substitution Allowed, SUSP insulin regular 5 Units, SUB-Q Active [facility] [place] human recombinant SUB-Q, TID, 2011 Pa dical 100 units/mL 30 vial, 3, Center injectable 3, solution Substitution Allowed, before breakfast lunch and dinner, SOLNbefore breakfast lunch and dinner potassium 20 mEq, 100 IVPB No Longer [facility] chloride mL, Route: Active 2011 Medical IVPB, Drug Center form: INJ, Q2H, Start date: 08/23/11 8:00:00, Duration: 2 doses or times, Stop date: 08/23/11 10:00:00 calcium chloride 1 gm, Route: IVPB No Longer [facility] IVPB, ONCE, Active 2011 Medical Priority: Center STAT, Start date: 08/23/11 7:28:00, Stop date: 08/23/11 7:28:00 potassium 40 mEq, IV No Longer Akmal [place] chloride Route: IV, Active 2011 Medical ONCE, Start Center date: 08/23/11 6:29:00, Stop date: 08/23/11 6:29:00 potassium 60 mEq, 3 PO No Longer Akmal [place] chloride 20 mEq tab, Route: Active 2011 Medi [place] oral tablet, PO, Drug [place] extended release form: ERTAB, ONCE, Start date: 08/23/11 6:27:00, Stop date: 08/23/11 6:27:00 magnesium sulfate 2 gm, 50 mL, IVPB No Longer Akmal [facility] Route: IVPB, Active 2011 Medical Drug form: Center INJ, ONCE, Total dose = 2 gm, Start date: 08/23/11 6:26:00, Duration: 1 doses or times, Stop date: 08/23/11 6:26:00 magnesium sulfate 2 gm, 50 mL, IVPB No Longer Ahmed [facility] Route: IVPB, Active 2011 Medical Drug form: Center INJ, ONCE, Total dose = 2 gm, Start date: 08/22/11 10:26:00, Duration: 1 doses or times, Stop date: 08/22/11 10:26:00 calcium gluconate 1,000 mg, 10 IVPB No Longer [place] mL, Route: Active 2011 Medical IVPB, ONCE, Center Start date: 08/22/11 10:25:00, Stop date: 08/22/11 10:25:00 potassium 40 mEq, 2 PO No Longer Akmal [facility] chloride 20 mEq tab, Route: Active 2011 Medi [place] oral tablet, PO, Drug [place] extended release form: ERTAB, Daily, Start date: 08/22/11 9:00:00, Duration: 30 day, Stop date: 08/22/11 12:00:00 magnesium sulfate 2 gm, 50 mL, IVPB No Longer Akmal [facility] Route: IVPB, Active 2011 Medical Drug [...] mg, 1 tab, PO No Longer Rivero [facility] Route: PO, Active 2011 Medical Drug [...] 6.25 mg, 0.25 IVPB No Longer Rivero [facility] mL, Route: Active 2011 Medical IVPB, [...] mg, 2 mL, IVP No Longer med [facility] Route: IVP, Active 2011 Medical Drug form: Center INJ, Q8H, PRN Nausea, Start date: 08/20/11 11:15:00, Duration: 30 day, Stop date: 09/19/11 11:14:00 insulin 10 unit, SUB-Q No Longer Rivero [facility] isophane-NPH Route: SUB-Q, Active 2011 Medic al ONCE, Start Center date: 08/20/11 10:00:00, Stop date: 08/20/11 10:00:00 trazodone 100 mg 200 mg, 2 PO Active [place] oral tablet tab, PO, 2011 Medical Bedtime, 90 Center tab, Substitution Allowed, TAB benztropine 1 mg 1 mg, 1 tab, PO Active [facility] oral tablet PO, BID, 60 2011 Medical tab, Center Substitution Allowed, TAB Geodon 60 mg oral 120 mg, 2 PO Active [place] capsule cap, PO, 2011 Medical Bedtime, 60 Center cap, Substitution Allowed, CAP insulin 10 unit, SUB-Q No Longer Rivero [facility] isophane-NPH Route: SUB-Q, Active 2011 Medic al [...] potassium 20 mEq, 100 IVPB No Longer [place] chloride mL, Route: Active 2011 [facility] IVPB, Drug Center form: INJ, Q2H, Total dose = 80 mEq, Start date: 08/20/11 8:00:00, Duration: 4 doses or times, Stop date: 08/20/11 14:00:00 potassium 15 mmol, IVPB No Longer [place] phosphate Route: IVPB, Active 2011 [facility] PRN, PRN Center Abnormal Lab Result, Start date: 08/20/11 6:47:00, Duration: 30 day, Stop date: 09/19/11 7:46:00 Insulin regular 6 unit, 0.06 SUB-Q No Longer [place] mL, Route: Active 2011 [facility] SUB-Q, Drug Center form: SOLN, ONCE, Start date: 08/20/11 3:38:00, Stop date: 08/20/11 3:38:00 Insulin regular 10 unit, SUB-Q No Longer [facility] [place] SUB-Q, BID, Active 2011 Medical Substitution Center Allowed insulin 10 unit, SUB-Q No Longer [place] isophane-NPH SUB-Q, BID, Active 2011 Medical Substitution Center Allowed NS 1,000 mL 1,000 mL, IV No Longer [facility] M[place] Rate: 150 Active 2011 Medical ml/hr, [...] Insulin regular 3 unit, SUB-Q No Longer [place] [facility] Route: SUB-Q, Active 2011 Medical Bedtime, PRN Center Blood Glucose Results, Start date: 08/20/11 2:48:00, Duration: 30 day, Stop date: 09/19/11 2:47:00 Dextrose 50% 25 gm, 50 ml, IVP No Longer [place] [facility] Syringe Route: IVP, Active 2011 Medical Drug Form: Center INJ, PRN, PRN Blood Glucose Results, Start date: 08/20/11 2:46:00, Duration: 30 day, Stop date: 09/19/11 3:45:00 ondansetron 4 mg, Route: IVP No Longer [facility] IVP, Drug Active 2011 Medical form: INJ, Center ONCE, Priority: STAT, Start date: 08/20/11 1:42:00, Stop date: 08/20/11 1:42:00 GI cocktail 30 ml, Route: PO No Longer [facility] PO, Drug Active 2011 Medical Form: SUSP, Center ONCE, STAT, Start date: 08/19/11 23:12:00, Stop date: 08/19/11 23:12:00 ondansetron 4 mg, Route: PO No Longer [facility] PO, Drug Active 2011 Medical form: TABDIS, Center ONCE, Priority: STAT, Start date: 08/19/11 23:10:00, Stop date: 08/19/11 23:10:00 Lactated Ringers 1,000 mL, IV No Longer [facility] ([place]) IV 1000 Rate: 1,000 Active 2011 Medi [place] mL ml/hr, Infuse Center over: 1 hr, Route: IV, Total Volume: 1,000, [place] Dose, Priority: STAT, Start date: 08/19/11 23:10:00, Duration: 1 doses or times, Stop date: 08/20/11 0:09:00 Insulin regular 7 unit, 0.07 SUB-Q No Longer [facility] 08/19 [facility] mL, Route: Active 2011 Medical SUB-Q, Drug Center form: SOLN, ONCE, Priority: STAT, Start date: 08/19/11 22:15:00, Stop date: 08/19/11 22:15:00 Geodon 60 mg oral 60 mg, 1 cap, PO No Longer Rivero [facility] capsule PO, BID, 180 Active 2011 Medical cap, Center Substitution Allowed, CAP trazodone 300 mg 300 mg, 1 PO No Longer [place] oral tablet tab, PO, Active 2011 Medical Bedtime, 15 Center tab, Substitution Allowed, TAB Effexor XR 75 mg 75 mg, 1 cap, PO Active Rivero [facility] oral capsule, PO, Daily, 2011 [facility] extended release cap, Center Substitution Allowed Lactated [...] 4 mg, Route: IVP No Longer Pooja [facility] IVP, ONCE, Active 2011 Medical Priority: Center STAT, Start date: 08/19/11 15:57:00, Stop date: 08/19/11 15:57:00 Reglan 10 mg, Route: IV No Longer Pooja [facility] IV, ONCE, Active 2011 Medical Start date: Center 08/19/11 15:57:00, Stop date: 08/19/11 15:57:00 Lactated Ringers 1,000 mL, IV No Longer Pooja [facility] ([place]) IV 1000 Rate: 1,000 Active 2011 Medi tawnya mL ml/hr, Infuse Center over: 1 hr, Route: IV, Total Volume: 1,000, [place] Dose, Priority: STAT, Start date: 08/19/11 15:12:00, Duration: 1 doses or times, Stop date: 08/19/11 16:11:00 Allergies, Adverse Reactions, Alerts Substance Category Reaction Severity Reaction Status Date Comments S ource type Reported codeine Assertion Drug Active [facility] penicillins Assertion Drug Active [facility] Prolex DM Assertion Drug Active [facility] exas [facility] Ambien Assertion Drug Active [facility] as [facility] lisinopril Assertion angioedema Drug Active [facility] Immunizations No Data Provided for This Section Results Order Name Results Value Reference Date Interpretation Comments Alycia rce Range ELECTROLYT AGAP 14.6 10.0 - 02/09 [facility] ES 20.0 /2017 Medical Center ELECTROLYT eGFR 33 02/ Result [facility] Comment: The Medical eGFR is Center [...] Calcium Lvl 8.3 8.5 - 10.5 07/30 [facility] ELECTROLYT Glucose Lvl 81 70 - 99 07/30 [facility] ELECTROLYT Creatinine 1.95 0.50 - 07/30 [facility] ES Lvl 1.40 [facility] ELECTROLYT BUN 55 7 - 22 07/30 [facility] ELECTROLYT CO2 19 24 - 32 07/30 [facility]2016 [facility] ELECTROLYT Chloride Lvl 110 95 - 109 07/30 [facility] ELECTROLYT Sodium Lvl 139 135 - 145 07/30 [facility] [address] [place] [address] ELECTROLYT Potassium 4.6 3.5 - 5.1 07/30 [facility] Lvl [facility] HEMATOLOGY Lymphocytes 30.4 20.0 - 07/30 [facility] 40.0 [facility] HEMATOLOGY Eosinophils 4.5 0.0 - 4.0 07/30 [facility] s [facility] HEMATOLOGY Monocytes 13.7 2.0 - 12.0 07/30 [facility] [address] [place] [address] HEMATOLOGY Segs-Bands # 2.6 1.5 - 8.1 07/30 [facility] HEMATOLOGY Basophils 0.7 0.0 - 1.0 07/30 [facility] [address] [place] [address] HEMATOLOGY Monocytes # 0.7 0.0 - 0.8 07/30 [facility] HEMATOLOGY Lymphocytes 1.6 1.0 - 5.5 07/30 [facility] # [facility] HEMATOLOGY Eosinophils 0.2 0.0 - 0.5 07/30 [facility] # [facility] HEMATOLOGY Segs 50.7 45.0 - 07/30 [facility] 75.0 [facility] HEMATOLOGY PB Smear Peripheral 07/30 [facility] Path blood /2016 [facility] smear Center shows hypochromi c normocytic anemia with anisopoiki locytsosis , no increase in schistocyt es, slight polychroma antonia, frequent eccinocyte s, occasional eliptocyte s, and moderate thrombocyt openia. Impression : (1) No evidence of microangio pathic hemolysis (2) RBC morphology is suggestive of anemia of chronic disease or iron deficiency anemia, and renal disease. CPT: 06631 HEMATOLOGY Hct 28.1 36.0 - 07/30 [place] 48.0 [facility] HEMATOLOGY RBC 3.39 4.20 - 07/30 [place] 5.40 /2016 [facility] HEMATOLOGY Hgb 8.9 12.0 - 07/30 [place] 16.0 /2016 [facility] HEMATOLOGY WBC 5.1 3.7 - 10.4 07/30 [facility] HEMATOLOGY MPV 11.3 7.4 - 10.4 07/30 [facility] HEMATOLOGY Platelet 118 133 - 450 07/30 [facility] HEMATOLOGY MCHC 31.8 32.0 - 02 [place] 36.0 [facility] HEMATOLOGY RDW 18.0 11.5 - 07/30 14.5 [facility] HEMATOLOGY MCV 83.0 80.0 - 07/30 98.0 [facility] HEMATOLOGY MCH 26.4 27.0 - 07/30 [place] 31.0 [facility] IMMUNOLOGY C3 137 88 - 201 07/30 [facility] IMMUNOLOGY HIV. Negative Negative [facility]30 [facility] (07/30/16 5:32 AM) [place] HEMATOLOGY PB Smear Peripheral 07/29 [facility] blood Medical smear Center shows hypochromi c normocytic anemia with anisopoiki locytsosis , no increase in schistocyt es, moderate polychroma antonia, frequent eccinocyte s, occasional eliptocyte s, and moderate thrombocyt openia. Impression : (1) No evidence of microangio pathic hemolysis (2) RBC morphology is suggestive of anemia of chronic disease or iron deficiency anemia, and renal disease. CPT: 46948 IMMUNOLOGY HIV. Negative Negative 07/29 [facility] *NA* [facility] (07/29/16 5:05 AM) [place] IMMUNOLOGY C3 92 88 - 201 07/29 [facility] CHEM PANEL eGFR 25 07/28 [facility] Comment: The [facility] eGFR is Center calculated using [...] PANEL BUN 55 7 - 22 07/28 [facility] CHEM PANEL CO2 23 24 - 32 07/28 [facility] CHEM PANEL Chloride Lvl 109 95 - 109 07/28 [facility] CHEM PANEL Glucose Lvl 101 70 - 99 07/28 2016 [facility] CHEM PANEL Potassium 4.0 3.5 - 5.1 07/28 [facility] CHEM PANEL Sodium Lvl 141 135 - 145 07/28 [facility] CHEM PANEL AGAP 13.0 10.0 - 02 [place] 20.0 [facility] CHEM PANEL Calcium Lvl 7.7 8.5 - 10.5 07/28 [facility] CHEM PANEL Creatinine 2.49 0.50 - 07/28 [facility] Lvl 1.40 /2016 [facility] HEMATOLOGY PT 14.8 12.0 - 02 [place] 14.7 [facility] HEMATOLOGY PTT 40.8 22.9 - 02 [place] 35.8 /2016 [facility] HEMATOLOGY INR 1.14 0.85 - 02 [place] 1.17 [facility] IMMUNOLOGY C3 94 88 - 201 02 [facility] Complement [facility] HEMATOLOGY Lymphocytes 1.7 1.0 - 5.5 07/28 [facility] s # /2016 [facility] HEMATOLOGY Segs-Bands # 2.7 1.5 - 8.1 07/28 [facility] HEMATOLOGY Eosinophils 0.1 0.0 - 0.5 07[place] # /[place] [facility] HEMATOLOGY Monocytes # 0.7 0.0 - 0.8 07/28 [facility] HEMATOLOGY Segs 51.3 45.0 - 07/28 [place] 75.0 /2016 [facility] HEMATOLOGY Lymphocytes 31.6 20.0 - 02 [place] 40.0 /2016 [facility] HEMATOLOGY Monocytes 14.1 2.0 - 12.0 07/28 [facility] HEMATOLOGY Eosinophils 2.6 0.0 - 4.0 07/28 a s /2016 [facility] HEMATOLOGY Basophils 0.4 0.0 - 1.0 07/28 [facility] HEMATOLOGY PB Smear Peripheral 07/28 [facility] Path blood /2016 Medical smear Center shows hypochromi c normocytic anemia with anisopoiki locytsosis , no increase in schistocyt es, slight polychroma antonia, a few estella cells, moderate thrombocyt openia. Impression : (1) no evidence of microangio pathic hemolysis, (2) RBC morphology is suggestive of anemia of chronic disease or iron deficiency anemia, and renal disease. CPT: 39700 HEMATOLOGY Hct 29.3 36.0 - 07/28 48.0 [facility] HEMATOLOGY Hgb 9.2 12.0 - 07/28 16.0 [facility] HEMATOLOGY RBC 3.54 4.20 - 07/28 [place] 5.40 /2016 [facility] HEMATOLOGY WBC 5.3 3.7 - 10.4 07/28 [facility] HEMATOLOGY Platelet 87 133 - 450 07/28 [facility] HEMATOLOGY MCHC 31.4 32.0 - 02 36.0 /2016 [facility] HEMATOLOGY RDW 17.9 11.5 - 07/28 14.5 [facility] HEMATOLOGY MPV 10.9 7.4 - 10.4 07/28 [facility] HEMATOLOGY MCH 26.0 27.0 - 07/28 31.0 [facility] HEMATOLOGY MCV 82.8 80.0 - 07/28 [facility] 98.0 [facility] IMMUNOLOGY HIV. Negative Negative 07/28 [facility] *NA* /2016 Medical (07/28/16 4:35 AM) Center CARDIAC Total CK 190 12 - 191 07/27 [facility] CHEM PANEL Calcium Lvl 7.8 8.5 - 10.5 07/27 [facility] CHEM PANEL CO2 21 24 - 32 07/27 [facility] CHEM PANEL Sodium Lvl 140 135 - 145 02 [facility] CHEM PANEL Potassium 3.8 3.5 - 5.1 07/27 [facility] CHEM PANEL Chloride Lvl 106 95 - 109 07/27 [facility] CHEM PANEL Bili Total 0.4 0.2 - 1.3 07/27 [facility] CHEM PANEL Alk Phos 74 39 - 136 07/27 [facility] CHEM PANEL eGFR 19 07/27 [facility] Comment: [facility] eGFR is Center calculated using [...] PANEL Total 5.2 6.4 - 8.4 07/27 [facility] CHEM PANEL ALT 822 0 - 65 07/27 [facility] CHEM PANEL AST 205 0 - 37 07/27 [facility] CHEM PANEL Albumin Lvl 1.8 3.5 - 5.0 07/27 [facility] CHEM PANEL BUN 54 7 - 22 07/27 [facility] CHEM PANEL Glucose Lvl 143 70 - 99 07/27 [facility] CHEM PANEL Creatinine 3.11 0.50 - 02 [facility] 1.40 [facility] CHEM PANEL B/C Ratio 17 6 - 25 07/27 [facility] CHEM PANEL AGAP 16.8 10.0 - 02 [place] 20.0 [facility] CHEM PANEL Globulin 3.4 2.7 - 4.2 07/27 [facility] CHEM PANEL A/G Ratio 0.5 0.7 - 1.6 02/ [facility] CHEM PANEL Magnesium 2.0 1.8 - 2.4 02/ [facility] Lvl [facility] CHEM PANEL Phosphorus 3.7 2.5 - 4.5 02/ [facility] HEMATOLOGY RDW 17.7 11.5 - 02 [place] 14.5 /2016 [facility] HEMATOLOGY MCHC 32.9 32.0 - 02/ [place] 36.0 [facility] HEMATOLOGY Hct 25.4 36.0 - 02/ [place] 48.0 /2016 [facility] HEMATOLOGY MCH 26.4 27.0 - 02 [place] 31.0 [facility] HEMATOLOGY MCV 80.3 80.0 - 02 [facility] 98.0 [facility] HEMATOLOGY MPV 11.4 7.4 - 10.4 02 [facility] [address] [place] [address] HEMATOLOGY Platelet 74 133 - 450 02 [facility] HEMATOLOGY RBC 3.16 4.20 - 02 [place] 5.40 /2016 [facility] HEMATOLOGY WBC 5.3 3.7 - 10.4 02/ [facility] [address] [place] [address] HEMATOLOGY Hgb 8.4 12.0 - 02/ [place] 16.0 [facility] HEMATOLOGY Monocytes 14.5 2.0 - 12.0 02/ [address] [place] [address] HEMATOLOGY Lymphocytes 29.8 20.0 - 02/ [place] 40.0 [facility] HEMATOLOGY Eosinophils 0.1 0.0 - 0.5 02/ [place] # [facility] HEMATOLOGY Monocytes # 0.8 0.0 - 0.8 02/ s [facility] HEMATOLOGY Segs-Bands # 2.9 1.5 - 8.1 02 as [facility] HEMATOLOGY Lymphocytes 1.6 1.0 - 5.5 02/ [place] # [facility] HEMATOLOGY Basophils 0.4 0.0 - 1.0 02/ [facility] [address] [place] [address] HEMATOLOGY Eosinophils 1.2 0.0 - 4.0 02/ [place] [facility] HEMATOLOGY Segs 54.1 45.0 - 02/ [place] 75.0 [facility] SPECIAL Hgb A1C 8.9 <=5.6 % 07/27 [facility] CHEMISTRY [facility] CARDIAC Total CK 344 12 - 191 07/26 [facility] ENZYMES [facility] IMMUNOLOGY IVETTE Positive Negative 07/26 *ABN* Medical (07/26/16 11:40 AM) Center IMMUNOLOGY BLUE PRINTS TRIMMER Ab <0.2 <=0.9 AI 07/26 [facility] IMMUNOLOGY Sm Ab <0.2 <=0.9 AI 07/26 [facility] IMMUNOLOGY IVETTE Interp Pattern 07/26 [facility] IMMUNOLOGY SS-B ([place]) Ab <0.2 <=0.9 [place] 07/26 [place] [facility] IMMUNOLOGY SS-A (Ro) Ab <0.2 <=0.9 AI 07/26 [facility] IMMUNOLOGY DNA Ab (DS) Negative Negative 07/26 [facility]07[facility]26/16 11:40 AM[facility] Medica l Center IMMUNOLOGY IVETTE Titer 1:40 Negative 07/26 *ABN* Medical (07/26/16 11:40 AM) Center URINE CHEM U Sodium 21 07/26 [facility] HEMATOLOGY INR 1.11 0.85 - 07/26 [place] 1.17 [facility] HEMATOLOGY PT 14.5 12.0 - 07/26 [facility] 14.7 [facility] IMMUNOLOGY Hep A IgM Negative Negative 07/26 [place] *NA* Medical (07/26/16 8:00 AM) Center IMMUNOLOGY Hep B Core Negative Negative 07/26 [facility] IgM *NA* Medical (07/26/16 8:00 AM) Center IMMUNOLOGY Hep C Ab Negative 07/26 [place] *NA* Medical (07/26/16 8:00 AM) Center IMMUNOLOGY Hep Bs Ag Negative Negative 07/26 *NA* Medical (07/26/16 8:00 AM) Center CHEM PANEL B/C Ratio 17 6 - 25 07/26 [facility] CHEM PANEL ALT 1232 0 - 65 07/26 [facility] CHEM PANEL A/G Ratio 0.5 0.7 - 1.6 07/26 [facility] CHEM PANEL Bili Total 0.3 0.2 - 1.3 07/26 [facility] [place] /[address] [place] [address] CHEM PANEL Alk Phos 79 39 - 136 07/[address] CHEM PANEL AST 586 0 - 37 07/26 [facility]2016 [facility] CHEM PANEL Total 5.5 6.4 - 8.4 07/26 [facility] Protein [facility] CHEM PANEL Globulin 3.7 2.7 - 4.2 07/[address] CHEM PANEL Albumin Lvl 1.8 3.5 - 5.0 07/26 [place] [facility] CHEM PANEL Magnesium 2.1 1.8 - 2.4 07/26 [facility] HEMATOLOGY Acanthocyte Slight 07/[address] HEMATOLOGY Rouleaux Present None Seen 07/26 [facility] (07/26/16 4:42 AM) [place] HEMATOLOGY Anisocyte 1+ None Seen 07/26 [facility] (07/26/16 4:42 AM) [place] HEMATOLOGY Basophils # 0.1 0.0 - 0.2 07/26 [facility] HEMATOLOGY Large Plt Moderate None [facility] (07/26/16 4:42 AM) [place] IMMUNOLOGY C4 42 16 - 47 07/26 [facility] URINE AND UA Sq Epi None Seen 07/[address] URINE AND UA Waxy Cast 1 <=0 /LPF 07/[address] URINE AND UA Hyal Cast 4 0 - 2 07/[address] URINE AND UA Bacteria Occasional None [place]en 07[place] /HPF /HPF /2016 [facility] URINE AND UA Mucus Few /LPF None Seen 07/25 [facility] STOOL /LPF /[address] [place] [address] URINE AND UA Amorph Occasional None [place] /HPF /HPF /[address] [place] [address] URINE AND UA Leuk Est Negative Negative 07/25 [facility] STOOL (07/25/16 10:34 AM) [facility] [place] URINE AND UA Nitrite Negative Negative 07/25 [facility] (07/25/16 10:34 AM) /2016 [facility] URINE AND UA RBC 2 0 - 2 07/[address] URINE AND UA WBC 6 0 - 5 07/[address] URINE AND UA 2.0 0.1 - 1.0 07/25 [facility] Urobilinogen /2016 [facility] URINE AND UA Ketones Negative Negative 07/25 [facility] STOOL mg/dL mg/dL [facility] URINE AND UA Glucose 70 mg/dL Negative 07/25 [facility] mg/dL [facility] URINE AND UA Blood Negative Negative 07/25 [facility] (07/25/16 10:34 AM) Medica l [place] URINE AND UA Bili Negative Negative 07/25 [facility] STOOL *NA* [facility] (07/25/16 10:34 AM) [place] URINE AND UA Protein >=300 Negative 07/25 [facility] mg/dL mg/dL [facility] URINE AND UA Spec Grav 1.012 <=1.030 07/25 [facility] URINE AND UA pH 5.5 5.0 - 8.0 07/25 [facility] URINE AND UA Turbidity Slight Clear 07/25 [facility] *ABN* [facility] (07/25/16 10:34 AM) [place] URINE AND UA Color Dark Yellow Yellow 07/25 [facility] *NA* /2016 [facility] (07/25/16 10:34 AM) [place] URINE AND UA Gran Cast 9 07/25 [facility] [address] [place] [address] URINE CHEM U Sodium 30 07/25 [facility] [address] [place] [address] URINE CHEM U Prot/Creat 3.1 07/25 [facility] [address] [place] [address] URINE CHEM U Protein 420.9 07/25 [facility] [address] [place] [address] URINE CHEM U Creatinine 136.00 07/25 [facility] [address] [place] [address] CHEM PANEL Magnesium 2.0 1.8 - 2.4 07/25 [facility] Lvl [facility] CHEM PANEL Phosphorus 5.2 2.5 - 4.5 07/25 [facility] [address] [place] [address] CARDIAC Troponin-I 0.28 0.00 - 07/24 [facility] ENZYMES 0.40 /2016 [facility] CARDIAC Total CK 2616 12 - 191 07/24 [facility] ENZYMES /2016 [facility] CARDIAC Troponin-T 0.144 0.000 - 07/24 Result [facility] ENZYMES 0.100 /2016 Comment: Medical Critical Center Result(s) called to Jennifer Reardon at 07/24/2016 13:00 byMIA. Read back OK. CARDIAC CK MB Index 0.2 0.0 - 2.5 07/24 [facility] [place] ENZYMES /2017 [facility] CARDIAC CK MB 6.3 0.5 - 3.6 07/24 [place] ENZYMES /2017 Medical Center CARDIAC Troponin-I 0.38 0.00 - 07/24 [place] ENZYMES 0.40 /2017 [facility] CARDIAC Troponin-T 0.173 0.000 - 07/24 Result [place] ENZYMES 0.100 /2017 Comment: Medical Critical Center Result(s) called to Nora Salcedo at 07/24/2016 07:48 byMIA. Read back OK. CARDIAC CK MB Index 0.2 0.0 - 2.5 07/24 [place] ENZYMES /2017 [facility] CARDIAC CK MB 5.6 0.5 - 3.6 07/24 [place] ENZYMES /2016 [facility] Center CHEM PANEL Phosphorus 5.5 2.5 - 4.5 07/24 [facility] CARDIAC BNP 701 <=100 07/24 [place] ENZYMES pg/mL /2016 [facility] CARDIAC Troponin-I 0.57 0.00 - 07/24 Result [place] ENZYMES 0.40 Comment: Medical Critical Center Result(s) called to Chriss Morales at 07/23/2016 23:25 by AC. Read back OK. CARDIAC BNP 526 <=100 06/15 [place] ENZYMES pg/mL [facility] CHEM PANEL Magnesium 2.1 1.8 - 2.4 06/15 Lv [facility] CHEM PANEL Glucose Lvl 117 70 - 99 06/15 [facility] CHEM PANEL BUN 41 7 - 22 06/15 [facility] CHEM PANEL Creatinine 2.00 0.50 - 06/15 [place] Lvl 1.40 [facility] CHEM PANEL Calcium Lvl 9.0 8.5 - 10.5 06/15 Baljinder as [facility] CHEM PANEL Chloride Lvl 102 95 - 109 06/15 [place] [facility] CHEM PANEL CO2 33 24 - 32 06/15 [facility] CHEM PANEL Sodium Lvl 144 135 - 145 06/15 [facility] CHEM PANEL Potassium 4.0 3.5 - 5.1 06/15 [place] Lvl [facility] CHEM PANEL eGFR 32 06/15 Result [...] AGAP 13.0 10.0 - 06/15 [place] 20.0 [facility] CHEM PANEL Phosphorus 4.6 2.5 - 4.5 06/15 [facility] HEMATOLOGY RBC 3.68 4.20 - 06/15 [place] 5.40 /2015 [facility] HEMATOLOGY Hgb 9.9 12.0 - 06/15 [place] 16.0 [facility] HEMATOLOGY MCH 26.8 27.0 - 06/15 [place] 31.0 [facility] HEMATOLOGY MCHC 34.2 32.0 - 06/15 [place] 36.0 [facility] HEMATOLOGY MCV 78.3 80.0 - 06/15 [place] 98.0 [facility] HEMATOLOGY Hct 28.8 36.0 - 06/15 [place] 48.0 [facility] HEMATOLOGY Platelet 191 133 - 450 06/15 [facility] HEMATOLOGY MPV 9.5 7.4 - 10.4 06/15 [facility] HEMATOLOGY RDW 15.3 11.5 - 06/15 [place] 14.5 [facility] HEMATOLOGY WBC 5.6 3.7 - 10.4 06/15 [facility] HEMATOLOGY Eosinophils 0.5 0.0 - 0.5 06/15 [place] # [facility] HEMATOLOGY Microcyte 1+ None Seen 06/15 [facility] *ABN* /2015 Medical (06/15/16 4:22 AM) Cente r HEMATOLOGY Basophils # 0.1 0.0 - 0.2 06/15 [place] /2015 [facility] HEMATOLOGY Lymphocytes 33.5 20.0 - 06/15 [place] 40.0 [facility] HEMATOLOGY Segs 47.6 45.0 - 06/15 [place] 75.0 [facility] HEMATOLOGY Monocytes 8.4 2.0 - 12.0 06/15 [facility] HEMATOLOGY Eosinophils 9.4 0.0 - 4.0 06/15 [facility] HEMATOLOGY Segs-Bands # 2.6 1.5 - 8.1 06/15 [facility] HEMATOLOGY Lymphocytes 1.9 1.0 - 5.5 06/15 a s [facility] HEMATOLOGY Basophils 1.1 0.0 - 1.0 06/15 [facility] HEMATOLOGY Monocytes # 0.5 0.0 - 0.8 06/15 [facility] CHEM PANEL Phosphorus 4.8 2.5 - 4.5 06/14 [facility] CHEM PANEL Magnesium 2.0 1.8 - 2.4 06/14 [facility] CHEM PANEL eGFR 32 06/14 [facility] Comment: The Medical eGFR is Center calculated [...] Chloride Lvl 101 95 - 109 06/14 [facility] CHEM PANEL Potassium 4.4 3.5 - 5.1 06/14 [facility] CHEM PANEL BUN 37 7 - 22 06/14 [facility] CHEM PANEL Glucose Lvl 119 70 - 99 06/14 MH [facility] CHEM PANEL Creatinine 2.00 0.50 - 06/14 [place] Lvl 1.40 [facility] CHEM PANEL Sodium Lvl 142 135 - 145 06/14 [facility] CHEM PANEL Calcium Lvl 8.7 8.5 - 10.5 06/14 [facility] Center CHEM PANEL CO2 32 24 - 32 06/14 [facility] CHEM PANEL AGAP 13.4 10.0 - 06/14 [place] 20.0 [facility] HEMATOLOGY Eosinophils 10.3 0.0 - 4.0 06/14 [place] [facility] HEMATOLOGY Basophils # 0.1 0.0 - 0.2 06/14 [facility] HEMATOLOGY Eosinophils 0.5 0.0 - 0.5 06/14 [place] # [facility] HEMATOLOGY Monocytes # 0.5 0.0 - 0.8 06/14 a [facility] HEMATOLOGY Segs-Bands # 2.1 1.5 - 8.1 06/14 [facility] HEMATOLOGY Basophils 1.2 0.0 - 1.0 06/14 [facility] HEMATOLOGY Lymphocytes 1.9 1.0 - 5.5 06/14 [place] # [facility] HEMATOLOGY Segs 42.5 45.0 - 06/14 [place] 75.0 [facility] HEMATOLOGY Lymphocytes 37.0 20.0 - 06/14 [place] 40.0 [facility] HEMATOLOGY Monocytes 9.0 2.0 - 12.0 06/14 [facility] HEMATOLOGY MPV 9.8 7.4 - 10.4 06/14 [facility] HEMATOLOGY WBC 5.0 3.7 - 10.4 06/14 [facility] HEMATOLOGY RBC 3.57 4.20 - 06/14 [place] 5.40 [facility] HEMATOLOGY Hgb 9.4 12.0 - 06/14 [place] 16.0 [facility] HEMATOLOGY Hct 28.5 36.0 - 06/14 [place] 48.0 [facility] HEMATOLOGY Platelet 183 133 - 450 06/14 [facility] HEMATOLOGY MCV 79.9 80.0 - 06/14 [place] 98.0 [facility] HEMATOLOGY MCH 26.3 27.0 - 06/14 [place] 31.0 /2016 [facility] HEMATOLOGY MCHC 33.0 32.0 - 06/14 [place] 36.0 /2016 [facility] HEMATOLOGY RDW 15.9 11.5 - 06/14 [place] 14.5 [facility] URINE CHEM U Prot/Creat 6.9 06/13 /2015 [facility] URINE CHEM U Creatinine 19.30 06/13 /2015 [facility] URINE CHEM U Protein 133.1 06/13 /2015 [facility] HEMATOLOGY MPV 9.7 7.4 - 10.4 06/13 /2015 [facility] HEMATOLOGY Platelet 184 133 - 450 06/13 /2015 [facility] HEMATOLOGY RDW 15.9 11.5 - 06/13 [place] 14.5 [facility] HEMATOLOGY MCV 79.3 80.0 - 06/13 [place] 98.0 /2015 [facility] HEMATOLOGY MCHC 33.0 32.0 - 06/13 [place] 36.0 /2016 [facility] HEMATOLOGY MCH 26.2 27.0 - 06/13 [place] 31.0 /2016 [facility] HEMATOLOGY Hct 29.4 36.0 - 06/13 [place] 48.0 /2016 [facility] HEMATOLOGY Hgb 9.7 12.0 - 06/13 [place] 16.0 /2016 [facility] HEMATOLOGY RBC 3.70 4.20 - 06/13 [place] 5.40 /2016 [facility] HEMATOLOGY WBC 5.7 3.7 - 10.4 06/13 /2015 [facility] HEMATOLOGY Basophils # 0.1 0.0 - 0.2 06/13 [place] /2015 [facility] HEMATOLOGY Lymphocytes 2.2 1.0 - 5.5 06/13 [place] # /2016 [facility] HEMATOLOGY Eosinophils 0.5 0.0 - 0.5 06/13 [place] # /2016 [facility] HEMATOLOGY Monocytes # 0.5 0.0 - 0.8 06/13 [place] /2015 [facility] HEMATOLOGY Basophils 1.1 0.0 - 1.0 06/13 [facility] HEMATOLOGY Segs-Bands # 2.3 1.5 - 8.1 06/13 Baljinder as /2015 [facility] HEMATOLOGY Eosinophils 9.5 0.0 - 4.0 06/13 [place] /2016 [facility] HEMATOLOGY Monocytes 9.0 2.0 - 12.0 06/13 [facility] HEMATOLOGY Lymphocytes 38.9 20.0 - 06/13 [place] 40.0 /2015 [facility] HEMATOLOGY Segs 41.5 45.0 - 06/13 [facility] 75.0 /2015 [facility] CHEM PANEL Magnesium 1.7 1.8 - 2.4 06/13 [facility] CHEM PANEL Phosphorus 4.2 2.5 - 4.5 06/13 [facility] ELECTROLYT AGAP 14.3 10.0 - 06/13 [facility] ES 20.0 [facility] ELECTROLYT eGFR 41 06/13 Result [facility] Comment: [facility] eGFR is Center calculated using [...] 103 95 - 109 06/13 [place] [facility] ELECTROLYT Calcium Lvl 8.5 8.5 - 10.5 06/13 Baljinder as [facility] ELECTROLYT CO2 32 24 - 32 06/13 [facility] ELECTROLYT Glucose Lvl 173 70 - 99 06/13 [facility] ELECTROLYT BUN 37 7 - 22 06/13 [facility] ELECTROLYT Creatinine 1.63 0.50 - 06/13 [facility] Lvl 1.40 [facility] ELECTROLYT Potassium 4.3 3.5 - 5.1 06/13 [facility] Lvl [facility] ELECTROLYT Sodium Lvl 145 135 - 145 06/13 [facility] CHEM PANEL Ammonia 48.0 <=45.0 06/11 [facility] uMol/L [facility] IMMUNOLOGY IVETTE Interp Pattern 06/11 [place] [facility] [place] IMMUNOLOGY IVETTE Titer 1:40 Negative 06/11 [place] [...] r IMMUNOLOGY HIV Ag/Ab Negative Negative 06/11 [facility] 4th Gen *NA Medical (06/11/16 8:56 AM) Cente r IMMUNOLOGY IVETTE Positive Negative 06/11 [place] *ABN* Medical (06/11/16 8:56 AM) Cente r CHEM PANEL Bili Total 0.1 0.2 - 1.3 06/11 [facility] CHEM PANEL Total 5.2 6.4 - 8.4 06/11 [facility] CHEM PANEL Albumin Lvl 1.6 3.5 - 5.0 06/11 [place] [facility] CHEM PANEL B/C Ratio 20 6 - 25 06/11 [facility] CHEM PANEL Globulin 3.6 2.7 - 4.2 06/11 [facility] CHEM PANEL A/G Ratio 0.4 0.7 - 1.6 06/11 [facility] CHEM PANEL Alk Phos 74 39 - 136 06/11 [facility] CHEM PANEL ALT 14 0 - 65 06/11 [facility] CHEM PANEL AST 13 0 - 37 06/11 [facility] HEMATOLOGY INR 1.06 0.85 - 06/11 [place] 1.17 /2015 [facility] HEMATOLOGY PT 14.0 12.0 - 06/11 [place] 14.7 /2016 [facility] HEMATOLOGY PTT 36.4 22.9 - 06/11 [place] 35.8 /2015 [facility] SPECIAL Hgb A1C 10.5 <=5.6 % 06/11 [place] CHEMISTRY /2015 [facility] CARDIAC CK MB Index 1.8 0.0 - 2.5 06/11 [place] ENZYMES /2015 [facility] CARDIAC CK MB 2.9 0.5 - 3.6 06/11 [facility] ENZYMES [facility] CARDIAC Troponin-T 0.061 0.000 - 06/11 [place] ENZYMES 0.100 [facility] CARDIAC Total CK 159 12 - 191 06/11 [facility] ENZYMES [facility] CARDIAC Troponin-I <0.02 0.00 - 06/11 [place] ENZYMES 0.40 [facility] CHEM PANEL Bili Total 0.2 0.2 - 1.3 06/11 [facility] CHEM PANEL Bili Direct 0.1 0.0 - 0.3 06/11 [place] [facility] CHEM PANEL Bili 0.1 0.0 - 1.0 06/11 Indirect [facility] CHEM PANEL Total 5.7 6.4 - 8.4 06/11 Protein [facility] CHEM PANEL A/G Ratio 0.5 0.7 - 1.6 06/11 [facility] CHEM PANEL Albumin Lvl 1.8 3.5 - 5.0 06/11 [place] [facility] CHEM PANEL Globulin 3.9 2.7 - 4.2 06/11 [facility] CHEM PANEL Alk Phos 99 39 - 136 06/11 [facility] CHEM PANEL AST 21 0 - 37 06/11 [facility] CHEM PANEL ALT 17 0 - 65 06/11 [facility] DRUG UDS Note See Note 06/11 [...] r DRUG U Benzodia Negative Negative 06/11 [facility] SCREEN Scr *NA* Medical (06/10/16 8:08 PM) Cente r DRUG U Cocaine Negative Negative 06/11 [facility] SCREEN Scr *NA* Medical (06/10/16 8:08 PM) Cente r LIPIDS LDL 75 <=99 mg/dL 06/11 [facility] (Calculated) [facility] LIPIDS VLDL 27 06/11 [facility] LIPIDS Chol 133 <=199 06/11 [facility] mg/dL [facility] LIPIDS Trig 133 <=149 06/11 [facility] mg/dL /2015 [facility] LIPIDS CHD Risk 4.29 3.90 - 06/11 [facility] 5.80 [facility] LIPIDS HDL 31 >=61 mg/dL 06/11 [facility] URINE AND UA <=1.0 0.1 - 1.0 06/11 [facility] STOOL Urobilinogen mg/dL /2015 [facility] URINE AND UA Ketones Negative Negative 06/11 [facility] STOOL mg/dL mg/dL /2015 [facility] URINE AND UA Glucose 300 mg/dL Negative 06/11 [facility] STOOL mg/dL /2015 [facility] URINE AND UA Protein >=300 Negative 06/11 [facility] STOOL mg/dL mg/dL /2015 [facility] URINE AND UA pH 6.0 5.0 - 8.0 06/11 [facility] STOOL /2015 Medical [place] URINE AND UA Nitrite Negative Negative 06/11 [facility] STOOL (06/10/16 8:08 PM) /2016 [facility] URINE AND UA Blood Trace Negative 06/11 [facility] STOOL *ABN* Medical (06/10/16 8:08 PM) Cente r URINE AND UA Bili Negative Negative 06/11 [facility] STOOL *NA* Medical (06/10/16 8:08 PM) Cente r URINE AND UA Mucus Few /LPF None Seen 06/11 [facility] STOOL /LPF /2015 [facility] URINE AND UA RBC 4 0 - 2 06/11 [facility] URINE AND UA Sq Epi Few /LPF Few /LPF 06/11 [facility] URINE AND UA WBC 5 0 - 5 06/11 [facility] URINE AND UA Leuk Est Small Negative 06/11 [facility] *ABN* /2015 [facility] (06/10/16 8:08 PM) Cente r URINE AND UA Hyal Cast 1 0 - 2 06/11 [facility] URINE AND UA Spec Grav 1.009 <=1.030 06/11 [facility] URINE AND UA Color Yellow Yellow 06/11 [facility] *NA* /2015 [facility] (06/10/16 8:08 PM) Cent[facility] URINE AND UA Turbidity Clear Clear 06/11 [facility] (06/10/16 8:08 PM) [facility] URINE CHEM U Preg Negative Negative 06/11 [facility] (06/10/16 8:08 PM) [place] URINE CHEM U Protein 375.4 06/11 [facility] URINE CHEM U Prot/Creat 5.4 06/11 [facility] URINE CHEM U Creatinine 69.80 06/11 [facility] [address] [place] [address] CARDIAC BNP 1135 <=100 06/10 [facility] ENZYMES pg/mL [facility] CARDIAC Troponin-I <0.02 0.00 - 06/10 [facility] ENZYMES 0.40 [facility] CHEM PANEL Lactic Acid 0.9 0.5 - 2.2 06[place]2014 [facility] TOXICOLOGY Valproic 10 50 - 100 06/26 [facility] Acid Lvl [facility] ENDOCRINOL hCG Tot 1 06/26 <sup>3</sup>I [...] Albumin Lvl 3.2 3.5 - 5.0 06/[address] CHEM PANEL Total 6.6 6.4 - 8.4 06/[address] CHEM PANEL Bili Total 0.6 0.2 - 1.3 06/[address] CHEM PANEL Alk Phos 59 39 - 136 06/[address] CHEM PANEL AST 11 0 - 37 06/[address] CHEM PANEL ALT 17 0 - 65 06/[address] CHEM PANEL eGFR 99 06/26 <sup>1</sup>R [facility] Medical Comment: The [place] eGFR is calculated using the CKD-EPI formula. [...] values reflect the clinical guidelines
of the [place] [employer]. CHEM PANEL Potassium 3.4 3.5 - 5.1 06/26 [facility] CHEM PANEL BUN 11 7 - 22 06/26 [facility]2014 [facility] CHEM PANEL Creatinine 0.8 0.5 - 1.4 06/26 [facility] CHEM PANEL Sodium Lvl 134 135 - 145 06/[address] CHEM PANEL Chloride Lvl 94 95 - 109 06/26 [facility] CHEM PANEL Calcium Lvl 9.1 8.5 - 10.5 06/26 [facility] CHEM PANEL CO2 24 24 - 32 06/[address] CHEM PANEL A/G Ratio 0.9 0.7 - 1.6 06/26 [facility]2014 [facility] CHEM PANEL Globulin 3.4 2.0 - 4.0 06/[address] CHEM PANEL B/C Ratio 14 6 - 25 06/[address] CHEM PANEL AGAP 19.4 10.0 - 06/26 [facility] 20.0 [facility] CHEM PANEL Lipase Lvl 81 73 - 393 06/26 [facility]2014 [facility] HEMATOLOGY Large Plt Slight 06/26 [facility]2014 [facility] HEMATOLOGY Basophils # 0.0 0.0 - 0.2 06/26 [facility] HEMATOLOGY Anisocyte 1+ None Seen 06/26 [facility] *ABN* [facility] (06/26/14 5:21 AM) [place] HEMATOLOGY Monocytes # 0.6 0.0 - 0.8 06/26 [facility] HEMATOLOGY Eosinophils 0.1 0.0 - 0.5 06/26 [facility] s # [facility] HEMATOLOGY Lymphocytes 2.5 1.0 - 5.5 06/26 [place] # /2014 [facility] HEMATOLOGY Segs 63.3 45.0 - 06/26 [place] 75.0 /2014 [facility] HEMATOLOGY Segs-Bands # 5.6 1.5 - 8.1 06/26 Balj[facility] as /2014 [facility] HEMATOLOGY Basophils 0.0 0.0 - 1.0 06/26 [facility] HEMATOLOGY Eosinophils 0.9 0.0 - 4.0 06/26 s /2014 [facility] HEMATOLOGY Monocytes 7.0 2.0 - 12.0 06/26 [facility] HEMATOLOGY Lymphocytes 28.8 20.0 - 06/26 [place] 40.0 /2014 [facility] HEMATOLOGY WBC 8.8 3.7 - 10.4 06/26 [facility] HEMATOLOGY RBC 5.19 4.20 - 06/26 5.40 /2014 [facility] HEMATOLOGY Hgb 14.4 12.0 - 06/26 16.0 /2014 [facility] HEMATOLOGY Hct 43.1 36.0 - 06/26 48.0 /2014 [facility] HEMATOLOGY MCV 83.1 80.0 - 06/26 98.0 /2014 [facility] HEMATOLOGY MCH 27.8 27.0 - 06/26 31.0 /2014 [facility] HEMATOLOGY RDW 13.1 11.5 - 06/26 14.5 /2014 [facility] HEMATOLOGY MCHC 33.5 32.0 - 06/26 36.0 /2014 [facility] HEMATOLOGY Platelet 201 133 - 450 06/26 [facility] HEMATOLOGY MPV 10.4 7.4 - 10.4 06/26 [facility] URINALYSIS UA [place] Yeast Occasional None Seen 04/15 ABN /HPF [facility] URINALYSIS UA Mucus Few /LPF None Seen 04/15 Normal [facility] URINALYSIS UA Sq Epi Moderate Few 04/15 ABN /LPF /2012 [place] URINALYSIS Micro? Performed 04/15 Normal (04/14/2013 23:48:55) /2012 So [facility] URINALYSIS UA WBC 0-2 /HPF None Seen 04/15 Normal [facility] URINALYSIS UA Bacteria Occasional None Seen 04/15 Normal /HPF [facility] URINALYSIS UA Glucose 500 mg/dL Negative 04/15 ABN [facility] URINALYSIS UA Bili Negative Negative 04/15 MH *NA* [facility] (04/14/2013 23:48:55) URINALYSIS UA Ketones Trace Negative 04/15 ABN *ABN* [facility] (04/14/2013 23:48:55) URINALYSIS UA Blood Negative Negative 04/15 Normal (04/14/2013 23:48:55) [facility] URINALYSIS UA 0.2 0.1 - 1.0 04/15 Normal Urobilinogen [facility] URINALYSIS UA Nitrite Negative Negative 04/15 Normal (04/14/2013 23:48:55) [facility] URINALYSIS UA Leuk Est Negative Negative 04/15 Normal (04/14/2013 23:48:55) [facility] URINALYSIS UA Turbidity Clear Clear 04/15 Normal (04/14/2013 23:48:55) [facility] URINALYSIS UA Color Yellow Yellow 04/15 *NA* [facility] (04/14/2013 23:48:55) URINALYSIS UA pH 7.0 5.0 - 8.0 04/15 Normal [facility] URINALYSIS UA Spec Grav 1.025 <=1.030 04/15 Normal [facility] URINALYSIS UA Protein Trace Negative 04/15 ABN *ABN* [facility] (04/14/2013 23:48:55) CHEMISTRY S Preg Negative Negative 04/15 *NA* [facility] (04/14/2013 23:28:00) CHEMISTRY Lipase Lvl 233 73 - 393 04/15 Normal [facility] CHEMISTRY Globulin 4.1 2.0 - 4.0 04/15 HI [facility] CHEMISTRY AGAP 10.5 10.0 - 04/15 Normal 20.0 [facility] CHEMISTRY B/C Ratio 6 6 - 25 04/15 Normal [facility] CHEMISTRY A/G Ratio 0.7 0.7 - 1.6 04/15 Normal [facility] CHEMISTRY eGFR 130 04/15 <sup>1</sup>R esult [facility] Comment: The eGFR is calculated using the [...] Lvl 2.9 3.5 - 5.0 04/15 LOW [facility] CHEMISTRY ASPARTATE 20 0 - 37 04/15 Normal TRANSAMINASE [facility] CHEMISTRY Bili Total 0.5 0.2 - 1.3 04/15 Normal [facility] CHEMISTRY Alk Phos 89 39 - 136 04/15 Normal [facility] CHEMISTRY ALANINE 11 0 - 65 04/15 AMINOTRANS [facility] RAS CHEMISTRY Creatinine 0.5 0.5 - 1.4 04/15 Normal [facility] CHEMISTRY BUN 3 7 - 22 04/15 LOW [facility] CHEMISTRY Glucose Lvl 255 70 - 99 04/15 [place] <sup>2</sup>I nterpretive [facility] Data: Adult reference range values reflect the clinical guidelines
of the [place] [employer]. CHEMISTRY Total 7.0 6.4 - 8.4 04/15 Normal Protein [facility] CHEMISTRY Calcium Lvl 8.7 8.5 - 10.5 04/15 Normal [facility] CHEMISTRY CO2 29 24 - 32 04/15 Normal [facility] CHEMISTRY Chloride Lvl 104 95 - 109 04/15 Normal [facility] CHEMISTRY Potassium 3.5 3.5 - 5.1 04/15 Normal l [facility] CHEMISTRY Sodium Lvl 140 135 - 145 04/15 Normal [facility] HEMATOLOGY PROTIME 12.1 12.0 - 04/15 Normal 14.7 [facility] HEMATOLOGY aPTT 39.0 22.9 - 04/15 [place] <sup>4</sup>I 35.8 nterpretive [facility] Data: Heparin Therapeutic Range: 57 - 92 Seconds HEMATOLOGY INR 0.90 0.85 - 04/15 Normal <sup>3</sup>I MH 1.17 nterpretive [facility] Data: RECOMMENDED RANGES FOR PROTIME INR:
2.0-3.0 for most medical and surgical thromboemboli c states.
2.5-3.5 for artificial heart valves and recurrent embolism.<br/ >
INR SHOULD BE USED ONLY FOR PATIENTS ON STABLE ANTICOAGULANT THERAPY. HEMATOLOGY MCH 29.4 27.0 - 04/15 Normal MH 31.0 /2012 [facility] HEMATOLOGY MCV 86.1 81.0 - 04/15 Normal MH 99.0 /2012 [facility] HEMATOLOGY Hct 29.4 36.0 - 04/15 LOW MH 48.0 /2012 [facility] HEMATOLOGY RDW 14.0 11.5 - 04/15 Normal MH 14.5 [facility] HEMATOLOGY WBC X 10x3 6.2 3.7 - 10.4 04/15 Normal /2012 [facility] HEMATOLOGY Platelet 178 133 - 450 04/15 Normal [facility] HEMATOLOGY MCHC 34.1 32.0 - 04/15 Normal 36.0 [facility] HEMATOLOGY RBC X 10x6 3.41 4.20 - 04/15 LOW MH 5.40 [facility] HEMATOLOGY Hgb 10.0 12.0 - 04/15 LOW 16.0 [facility] HEMATOLOGY MPV 10.1 7.4 - 10.4 04/15 Normal [facility] HEMATOLOGY Segs-Bands # 4.4 1.5 - 8.1 04/15 Normal [facility] HEMATOLOGY Basophils 0.7 0.0 - 1.0 04/15 Normal [facility] HEMATOLOGY Segs 70.7 45.0 - 04/15 Normal MH 75.0 [facility] HEMATOLOGY Monocytes # 0.3 0.0 - 0.8 04/15 Normal [facility] HEMATOLOGY Lymphocytes 1.2 1.0 - 5.5 04/15 Normal MH /2012 [facility] HEMATOLOGY Monocytes 4.5 2.0 - 12.0 04/15 Normal [facility] HEMATOLOGY Eosinophils 4.1 0.0 - 4.0 04/15 [place] MH /2012 [facility] HEMATOLOGY Lymphocytes 20.0 20.0 - 04/15 Normal 40.0 [facility] HEMATOLOGY Basophils # 0.0 0.0 - 0.2 04/15 Normal [facility] HEMATOLOGY Eosinophils 0.3 0.0 - 0.5 04/15 Normal MH # /2012 [facility] BEDSIDE Gluc POC 260 70 - 99 03/15 [place] <sup>1</sup>I GLUCOSE [facility] /2011 nterpretive [facility] TESTING Data: Upper Reportable Limit: 200 mg/dL. BEDSIDE Comment1 Notify 03/15 NA GLUCOSE RN/MD [facility] TESTING URINALYSIS UA Protein Trace Negative 03/14 [facility] *ABN* /2011 [facility] (03/14/2012 18:40:00) URINALYSIS UA pH 6.0 5.0 - 8.0 03/14 Normal /2011 [facility] URINALYSIS UA Ketones >=80 mg/dL Negative 03/14 NA *NA* /2011 [facility] (03/14/2012 18:40:00) URINALYSIS UA Glucose >=1000 mg/dL Negative 03/14 [facility] *ABN* /2011 [facility] (03/14/2012 18:40:00) URINALYSIS UA Blood Negative Negative 03/14 Normal (03/14/2012 18:40:00) [facility] URINALYSIS UA Nitrite Negative Negative 03/14 Normal (03/14/2012 18:40:00) [facility] URINALYSIS UA 0.2 0.1 - 1.0 03/14 Normal Urobilinogen /2011 [facility] URINALYSIS UA Leuk Est Negative Negative 03/14 Normal (03/14/2012 18:40:00) [facility] URINALYSIS UA Bili Negative Negative 03/14 [facility] *NA* /2011 [facility] (03/14/2012 18:40:00) URINALYSIS UA Turbidity Clear Clear 03/14 Normal (03/14/2012 18:40:00) [facility] URINALYSIS UA Color Yellow Yellow 03/14 NA *NA* /2011 [facility] (03/14/2012 18:40:00) URINALYSIS UA Spec Grav >=1.030 <=1.030 03/14 [facility] *ABN* [facility] (03/14/2012 18:40:00) URINALYSIS UA Sq Epi Occasional /LPF Few 03/14 Normal (03/14/2012 18:40:00) [facility] URINALYSIS UA WBC 3-5 /HPF None Seen 03/14 Normal (03/14/2012 18:40:00) So [facility] URINALYSIS UA Bacteria Occasional /HPF None Seen 03/14 Normal (03/14/2012 18:40:00) So [facility] CHEMISTRY S Preg Negative Negative 03/14 NA MH *NA* /2011 [facility] (03/14/2012 17:50:00) CHEMISTRY Lipase Lvl 45 73 - 393 03/14 LOW /2011 [facility] CHEMISTRY A/G Ratio 1.2 0.7 - 1.6 03/14 Normal [facility] CHEMISTRY Globulin 3.8 2.0 - 4.0 03/14 Normal [facility] CHEMISTRY B/C Ratio 21 6 - 25 03/14 Normal [facility] CHEMISTRY AGAP 16.8 10.0 - 03/14 Normal MH 20.0 [facility] CHEMISTRY Bili Total 1.1 0.2 - 1.3 03/14 Normal [facility] CHEMISTRY Total 8.2 6.4 - 8.4 03/14 Normal Protein [facility] CHEMISTRY Potassium 3.8 3.5 - 5.1 03/14 Normal [facility] CHEMISTRY Creatinine 0.7 0.5 - 1.4 03/14 Normal Lvl [facility] CHEMISTRY Sodium Lvl 139 135 - 145 03/14 Normal [facility] CHEMISTRY Chloride Lvl 99 95 - 109 03/14 Normal [facility] CHEMISTRY CO2 27 24 - 32 03/14 Normal [facility] CHEMISTRY Glucose Lvl 301 70 - 99 03/14 [place] <sup>2</sup>I nterpretive [facility] Data: Adult reference range values reflect the clinical guidelines
of the [place] [employer]. CHEMISTRY BUN 15 7 - 22 03/14 Normal [facility] CHEMISTRY ALT 24 0 - 65 03/14 Normal [facility] CHEMISTRY AST 20 0 - 37 03/14 Normal [facility] CHEMISTRY Alk Phos 67 39 - 136 03/14 Normal [facility] CHEMISTRY Albumin Lvl 4.4 3.5 - 5.0 03/14 Normal [facility] CHEMISTRY Calcium Lvl 9.9 8.5 - 10.5 03/14 Normal [facility] HEMATOLOGY MPV 11.8 7.4 - 10.4 03/14 [place] /2011 [facility] HEMATOLOGY MCHC 35.9 32.0 - 03/14 Normal MH 36.0 /2011 [facility] HEMATOLOGY MCH 31.2 27.0 - 09/24 HI MH 31.0 /2011 [facility] HEMATOLOGY Platelet 189 133 - 450 03/14 Normal MH /2011 [facility] HEMATOLOGY RDW 13.1 11.5 - 03/14 Normal MH 14.5 /2011 [facility] HEMATOLOGY Hct 40.7 36.0 - 03/14 Normal MH 48.0 /2011 [facility] HEMATOLOGY Hgb 14.6 12.0 - 03/14 Normal MH 16.0 /2011 [facility] HEMATOLOGY MCV 87.0 81.0 - 03/14 Normal 99.0 /2011 [facility] HEMATOLOGY WBC 11.7 3.7 - 10.4 09 HI MH /2011 [facility] HEMATOLOGY RBC 4.68 4.20 - 03/14 Normal MH 5.40 /2011 [facility] HEMATOLOGY Basophils # 0.0 0.0 - 0.2 03/14 Normal MH /2011 [facility] HEMATOLOGY Basophils 0.2 0.0 - 1.0 03/14 Normal MH /2011 [facility] HEMATOLOGY Eosinophils 0.0 0.0 - 0.5 03/14 Normal # /2011 [facility] HEMATOLOGY Monocytes # 0.4 0.0 - 0.8 03/14 Normal MH /2011 [facility] HEMATOLOGY Segs-Bands # 10.6 1.5 - 8.1 03/14 HI MH /2011 [facility] HEMATOLOGY Lymphocytes 0.7 1.0 - 5.5 03/14 LOW MH # /2011 [facility] HEMATOLOGY Monocytes 3.4 2.0 - 12.0 03/14 Normal MH /2011 [facility] HEMATOLOGY Plt Morph Normal 03/14 Normal (03/14/2012 17:50:00) /2011 So [facility] HEMATOLOGY Lymphocytes 6.0 20.0 - 03/14 LOW 40.0 /2011 [facility] HEMATOLOGY Eosinophils 0.0 0.0 - 4.0 03/14 Normal MH /2011 [facility] HEMATOLOGY Segs 90.4 45.0 - 03/14 HI MH 75.0 /2011 [facility] HEMATOLOGY RBC Morph Normal 03/14 Normal (03/14/2012 17:50:00) /2011 So [facility] BEDSIDE Gluc POC 167 70 - 99 11/29 [place] <sup>1</sup>I [facility] GLUCOSE Lif[facility] /2011 nterpretive Medical TESTING Data: Center Upper Reportable Limit: 200 mg/dL. BEDSIDE Comment1 Notify 11/29 NA [facility] GLUCOSE RN/ /2011 Medical TESTING Center BEDSIDE Comment2 Sliding 11/29 NA [facility] GLUCOSE Scale /2011 Medical TESTING Center BEDSIDE Gluc POC 189 70 - 99 11/29 [place] <sup>2</sup>I [facility] GLUCOSE Lif[place] /2011 nterpretive Medical TESTING Data: Center Upper Reportable Limit: 200 mg/dL. BEDSIDE Comment1 Notify 11/29 NA [facility] GLUCOSE TABATHA/ /2011 Medical TESTING Center BEDSIDE Comment2 Sliding 11/29 NA [facility] GLUCOSE Scale /2011 Medical TESTING Center BEDSIDE Comment2 Sliding 11/29 NA [facility] GLUCOSE Scale /2011 Medical TESTING Center BEDSIDE Gluc POC 110 70 - 99 11/29 [place] <sup>3</sup>I [facility] GLUCOSE [place] /2011 nterpretive Medical TESTING Data: Center Upper Reportable Limit: 200 mg/dL. BEDSIDE Comment1 Notify 11/29 NA [facility] GLUCOSE TABATHA/ /2011 Medical TESTING Center CHEMISTRY U Preg Negative Negative 11/28 Normal [facility] (11/28/2011 19:00:00) Pa dical Center URINALYSIS Micro? Performed 11/28 Normal [facility] (11/28/2011 19:00:00) Pa dical Center URINALYSIS UA Sq Epi Occasional /LPF Few 11/28 Normal [facility] (11/28/2011 19:00:00) Pa dical Center URINALYSIS UA RBC None Seen 0 - 2 11/28 Normal [facility] (11/28/2011 19:00:00) Pa dical Center URINALYSIS UA WBC Occasional 0 - 5 11/28 NA [facility] Medical Center URINALYSIS UA Protein Negative mg/dL Negative 11/28 Normal [facility] (11/28/2011 19:00:00) Pa dical Center URINALYSIS UA pH 7.0 5.0 - 8.0 11/28 Normal [facility] Medical Center URINALYSIS UA Spec Grav 1.020 <=1.030 11/28 Normal [facility] Center URINALYSIS UA Turbidity Clear Clear 11/28 Normal [facility] (11/28/2011 19:00:00) Pa dical Center URINALYSIS UA Color Yellow Yellow 11/28 NA [facility] *NA* /2011 Medical (11/28/2011 19:00:00) Ce nter URINALYSIS UA 0.2 0.1 - 1.0 11/28 Normal [facility] Urobilinogen /2011 Medical Center URINALYSIS UA Blood Negative Negative 11/28 Normal [facility] (11/28/2011 19:00:00) Pa dical Center URINALYSIS UA Bili Negative Negative 11/28 NA [place] *NA* Medical (11/28/2011 19:00:00) Ce nter URINALYSIS UA Ketones >=80 mg/dL Negative 11/28 ABN MH [facility] as *ABN* Medical (11/28/2011 19:00:00) Ce nter URINALYSIS UA Glucose >=1000 mg/dL Negative 11/28 ABN [facility] [place] *ABN* Medical (11/28/2011 19:00:00) Ce nter URINALYSIS UA Nitrite Negative Negative 11/28 Normal [facility] (11/28/2011 19:00:00) Pa dical Center URINALYSIS UA Leuk Est Negative Negative 11/28 [place] (11/28/2011 19:00:00) Pa dical Center CHEMISTRY pO2 [place] 60 20 - 49 11/27 [facility] Medical Center CHEMISTRY pCO2 [place] 41 38 - 52 11/27 Normal Medical Center CHEMISTRY pH [place] 7.45 7.28 - 11/27 [facility] 7.42 Medical Center CHEMISTRY Temp [place] 37.0 11/27 NA Medical Center CHEMISTRY O2 Sat [place] 92.0 40.0 - 11/27 [facility] 70.0 Medical Center CHEMISTRY BE [place] 4 -2-2 - 2 11/27 [facility] Medical Center CHEMISTRY HCO3 [place] 28.5 22.0 - 11/27 [facility] [place] 26.0 Medical Center CHEMISTRY Lactic Acid 1.6 0.5 - 2.2 11/27 Normal [facility] Medical Center CHEMISTRY Lipase Lvl 125 73 - 393 11/27 Normal [facility] CHEMISTRY Albumin Lvl 4.2 3.5 - 5.0 11/27 Normal [facility] CHEMISTRY CO2 23 24 - 32 11/27 LOW [facility] CHEMISTRY Chloride Lvl 98 95 - 109 11/27 Normal [facility] CHEMISTRY Potassium 3.8 3.5 - 5.1 11/27 Normal [facility] Medical Center CHEMISTRY Sodium Lvl 138 135 - 145 11/27 Normal Medical Center CHEMISTRY Creatinine 0.7 0.5 - 1.4 11/27 Normal [facility] Lvl Medical Center CHEMISTRY BUN 9 7 - 22 11/27 Normal [facility] Center CHEMISTRY Glucose Lvl 269 70 - 99 11/27 [place] <sup>4</sup>I T ex nterpretive Medical Data: Adult Center reference range values reflect the clinical guidelines of the [place] [employer]. CHEMISTRY B/C Ratio 13 6 - 25 11/27 Normal [facility] CHEMISTRY AGAP 20.8 10.0 - 11/27 HI [place] 20.0 Medical Center CHEMISTRY Calcium Lvl 9.3 8.5 - 10.5 11/27 Normal [facility] Center CHEMISTRY Total 6.7 6.4 - 8.4 11/27 Normal [facility] Protein [facility] Center CHEMISTRY A/G Ratio 1.7 0.7 - 1.6 11/27 [facility] CHEMISTRY Globulin 2.5 2.0 - 4.0 11/27 Normal [facility] CHEMISTRY AST 18 0 - 37 11/27 Normal [facility] CHEMISTRY Alk Phos 62 39 - 136 11/27 Normal [facility] CHEMISTRY ALT 32 0 - 65 11/27 Normal [facility] CHEMISTRY Bili Total 0.7 0.2 - 1.3 11/27 Normal [facility] HEMATOLOGY Anisocyte 1+ None Seen 11/27 [facility] ABN Medical (11/28/2011 15:00:00) Ce nter HEMATOLOGY Monocytes # 0.1 0.0 - 0.8 11/27 [place] [facility] HEMATOLOGY Eosinophils 0.0 0.0 - 0.5 11/27 Normal [facility] Center HEMATOLOGY Basophils # 0.0 0.0 - 0.2 11/27 Normal [facility] Center HEMATOLOGY Neut Vac Slight None Seen 11/27 [facility] ABN Medical (11/28/2011 15:00:00) Ce nter HEMATOLOGY Large Plt Slight [facility] Ce nter HEMATOLOGY Segs-Bands # 5.7 1.5 - 8.1 11/27 Normal [facility] HEMATOLOGY Lymphocytes 0.8 1.0 - 5.5 11/27 [place] # /2011 Medical Center HEMATOLOGY Eosinophils 0.2 0.0 - 4.0 11/27 [place] /2011 [facility] HEMATOLOGY Basophils 0.0 0.0 - 1.0 11/27 Normal /2011 [facility] HEMATOLOGY Monocytes 1.9 2.0 - 12.0 06 LOW [facility] HEMATOLOGY Segs 86.2 45.0 - 11/27 [facility] [place] 75.0 /2011 Medical [place] HEMATOLOGY Lymphocytes 11.7 20.0 - 06 LOW [place] 40.0 /2011 [facility] HEMATOLOGY MPV 10.8 7.4 - 10.4 11/27 [facility] HEMATOLOGY Platelet 161 133 - 450 11/27 [facility] HEMATOLOGY MCHC 35.6 32.0 - 11/27 [facility] [place] 36.0 /2011 [facility] HEMATOLOGY RDW 12.4 11.5 - 11/27 Normal [place] 14.5 /2011 [facility] HEMATOLOGY MCH 30.7 27.0 - 11/27 Normal [place] 31.0 /2011 [facility] HEMATOLOGY MCV 86.1 81.0 - 11/27 Normal [place] 99.0 /2011 [facility] HEMATOLOGY Hct 33.6 36.0 - 11/27 [facility] [place] 48.0 /2011 [facility] HEMATOLOGY Hgb 12.0 12.0 - 11/27 [facility] [place] 16.0 /2011 [facility] HEMATOLOGY RBC 3.90 4.20 - 11/27 [facility] [place] 5.40 /2011 [facility] HEMATOLOGY WBC 6.6 3.7 - 10.4 11/27 Normal [facility] CHEMISTRY UDS Note See Note 5 [...] CHEMISTRY U Phencyc Negative Negative 11/27 NA [facility] Scr *NA* Medical (11/28/2011 14:51:00) Ce nter CHEMISTRY U Kelly Scr Negative Negative 11/27 [facility] *NA* Medical (11/28/2011 14:51:00) Ce nter CHEMISTRY U Amph Scr Negative Negative 11/27 [facility] *NA* Medical (11/28/2011 14:51:00) Ce nter CHEMISTRY U Opiate Scr Negative Negative 11/27 [facility] s *NA* Medical (11/28/2011 14:51:00) Ce nter CHEMISTRY U Cocaine Negative Negative 11/27 [facility] Scr *NA* Medical (11/28/2011 14:51:00) Ce nter CHEMISTRY U Cannab Scr Negative Negative 11/27 [facility] s *NA* Medical (11/28/2011 14:51:00) Ce nter CHEMISTRY U Benzodia Negative Negative 11/27 [facility] Scr *NA Medical (11/28/2011 14:51:00) Ce nter BEDSIDE Comment1 Notify 09/17 NA [facility] GLUCOSE RN/MD /2011 Medical TESTING Center BEDSIDE Gluc POC 328 70 - 99 09/17 [place] <sup>1</sup>I [facility] GLUCOSE Lif[facility]n /2011 nterpretive Medical TESTING Data: Center Upper Reportable Limit: 200 mg/dL. CHEMISTRY U Preg Negative Negative 09/17 Normal [facility] (09/18/2011 10:30:00) Pa dical Center URINALYSIS UA WBC None Seen None Seen 09/17 Normal [facility] (09/18/2011 10:30:00) Pa dical Center URINALYSIS UA RBC None Seen 0 - 2 09/17 Normal [facility] (09/18/2011 10:30:00) Pa dical Center URINALYSIS UA Bacteria None Seen None Seen 09/17 Normal [place] (09/18/2011 10:30:00) Pa dical Center URINALYSIS UA Amorph Few /HPF None Seen 09/17 ABN [facility] [place] *ABN* Medical (09/18/2011 10:30:00) Ce nter URINALYSIS Micro? Performed 09/17 Normal [facility] (09/18/2011 10:30:00) Pa dical Center URINALYSIS UA Sq Epi Rare /LPF Few 09/17 Normal [facility] (09/18/2011 10:30:00) Pa dical Center URINALYSIS UA Ketones 15 mg/dL Negative 09/17 ABN [facility] *ABN* Medical (09/18/2011 10:30:00) Ce nter URINALYSIS UA Glucose >=1000 mg/dL Negative 09/17 ABN [place] * Medical (09/18/2011 10:30:00) Ce nter URINALYSIS UA Protein Trace Negative 09/17 ABN [facility] Medical (09/18/2011 10:30:00) Ce nter URINALYSIS UA 0.2 0.1 - 1.0 09/17 Normal [facility] Urobilinogen /2011 [facility] Center URINALYSIS UA Blood Negative Negative 09/17 Normal [facility] (09/18/2011 10:30:00) Pa dical Center URINALYSIS UA Bili Negative Negative 09/17 [facility] (09/18/2011 10:30:00) Ce nter URINALYSIS UA Leuk Est Negative Negative 09/17 [place] 10:30:00[place] [facility] Center URINALYSIS UA Nitrite Negative Negative 09/17 Normal [facility] (09/18/2011 10:30:00) Pa dical Center URINALYSIS UA pH 7.5 5.0 - 8.0 09/17 [facility] URINALYSIS UA Spec Grav 1.010 <=1.030 09/17 [facility] URINALYSIS UA Turbidity Slight Cloudy Clear 09/17 Normal [facility] (09/18/2011 10:30:00) Pa dical Center URINALYSIS UA Color Yellow Yellow 09/17 NA *NA* Medical (09/18/2011 10:30:00) Ce nter CHEMISTRY Phosphorus 4.4 2.5 - 4.5 09/17 [facility] CHEMISTRY Magnesium 1.6 1.8 - 2.4 09/17 LOW [facility] BEDSIDE Gluc POC >400 70 - 99 09/17 CRIT <sup>2</sup>I [facility] GLUCOSE [place] /2011 nterpretive Medical TESTING Data: [...] CO2 30 24 - 32 09/17 Normal [facility] CHEMISTRY Potassium 3.5 3.5 - 5.1 09/17 Normal [facility] CHEMISTRY Sodium Lvl 133 135 - 145 09/17 L[facility] CHEMISTRY Creatinine 1.3 0.5 - 1.4 09/17 Normal [facility] CHEMISTRY Glucose Lvl 383 70 - 99 09/17 HI <sup>3</sup>I T ex nterpretive Medical Data: Adult Center reference range values reflect the clinical guidelines of the [place] [employer]. CHEMISTRY BUN 17 7 - 22 09/17 Normal [facility] CHEMISTRY AGAP 14.5 10.0 [...] Monocytes 2.9 2.0 - 12.0 09/17 Normal [facility] HEMATOLOGY Eosinophils 0.2 0.0 - 4.0 09/17 [place] [facility] HEMATOLOGY Basophils 0.0 0.0 - 1.0 09/17 Normal [facility] HEMATOLOGY Eosinophils 0.0 0.0 - 0.5 09/17 [place] [facility] HEMATOLOGY Monocytes # 0.3 0.0 - 0.8 09/17 [place] [facility] HEMATOLOGY Segs 92.0 45.0 - 09/17 HI [place] 75.0 /2011 Medical Center HEMATOLOGY Lymphocytes 4.9 20.0 - 09/17 LOW [place] 40.0 Medical Center HEMATOLOGY Spherocyte Rare None Seen 09/17 [facility] *ABN Medical (09/18/2011 08:52:00) Ce nter HEMATOLOGY Large Plt Slight None Seen 09/17 [facility] *ABN Medical (09/18/2011 08:52:00) Ce nter HEMATOLOGY Microcyte 1+ None Seen 09/17 [facility] *ABN* Medical (09/18/2011 08:52:00) Ce nter HEMATOLOGY Schistocyte Rare 09/17 NA Medical Center HEMATOLOGY Macrocyte 1+ None Seen 09/17 [facility] *ABN* Medical (09/18/2011 08:52:00) Ce nter HEMATOLOGY Lymphocytes 0.6 1.0 - 5.5 09/17 [place] /[place] [facility] HEMATOLOGY Segs-Bands # 10.8 1.5 - 8.1 09/17 HI Baljinder as /2011 Medical Center HEMATOLOGY Basophils # 0.0 0.0 - 0.2 09/17 Normal [facility] HEMATOLOGY Anisocyte 1+ None Seen 09/17 ABN [facility] *ABN* Medical (09/18/2011 08:52:00) Ce nter IMMUNOLOGY [facility]-HIV 1/2 Negative Negative 09/17 NA [facility] s [facility] *NA* Medical (09/18/2011 08:52:00) Ce nter BEDSIDE Gluc POC 215 70 - 99 09/08 HI <sup>1</sup>I [facility] TESTING Data: Center Upper Reportable Limit: 200 mg/dL. BEDSIDE Comment1 Notify 09/08 [facility] GLUCOSE RN/ Medical TESTING Center BEDSIDE Comment1 Notify 09/08 [facility] GLUCOSE RN/ /2012 Medical TESTING Center BEDSIDE Gluc POC 91 65 - 110 09/08 Normal <sup>2</sup>I [facility]COSE [facility] TESTING Data: Center Upper Reportable Limit: 200 mg/dL. BEDSIDE Comment1 Notify 09/08 [facility] GLUCOSE RN/MD /2011 [facility] TESTING Center BEDSIDE Gluc POC 148 65 - 110 09/08 [place] <sup>3</sup>I [facility] GL[facility]COSE [facility] TESTING Data: Center Upper Reportable Limit: 200 mg/dL. CHEMISTRY Sodium Lvl 143 135 - 145 09/07 Normal [facility] CHEMISTRY Glucose Lvl 105 09/07 NA <sup>4</sup>I [place] nterpretive Medical Data: Center Reference Ranges : 0 - 7 days : 41 - 90 mg/dL 7 days - 150 yrs : 70 - 99 mg/dL (fasting), based on the clinical recommendatio ns of the [place] [employer]. CHEMISTRY CO2 29 24 - 32 09/07 Normal [facility] CHEMISTRY Chloride Lvl 103 95 - 109 09/07 Normal [facility] CHEMISTRY BUN 10 7 - 22 09/07 Normal [facility] CHEMISTRY Potassium 3.8 3.5 [...] Creatinine 0.5 0.5 - 1.4 09/06 Normal [facility] Medical Center CHEMISTRY BUN 10 7 - [...] on the clinical recommendatio ns of the [place] [employer]. CHEMISTRY Calcium Lvl 8.4 8.5 - 10.5 09/06 LOW a [facility] CHEMISTRY AGAP 14.1 10.0 [...] 12.7 12.0 - 09/06 Normal [place] 14.7 [facility] HEMATOLOGY PTT 28.5 22.9 - 09/06 Normal <sup>9</sup>[place] 35.8 /2011 nterpretive Medical Data: [facility] Therapeutic Range: 57 - 92 [facility] HEMATOLOGY Eosinophils 0.1 0.0 - 0.5 09/06 Normal [facility] HEMATOLOGY Basophils # 0.0 0.0 - 0.2 09/06 Normal [facility] HEMATOLOGY Basophils 0.4 0.0 - 1.0 09/06 Normal [facility] HEMATOLOGY Segs-Bands # 2.1 1.5 - 8.1 09/06 Normal Baljinder [facility] HEMATOLOGY Monocytes 9.0 2.0 - 12.0 09/06 Normal [facility] HEMATOLOGY Eosinophils 2.4 0.0 - 4.0 09/06 Normal [facility] HEMATOLOGY Monocytes # 0.4 0.0 - 0.8 09/06 Normal [facility] HEMATOLOGY Lymphocytes 2.0 1.0 - 5.5 09/06 [place] [facility] HEMATOLOGY Lymphocytes 42.8 20.0 - 09/06 HI [place] 40.0 [facility] HEMATOLOGY Segs 45.4 45.0 - 09/06 Normal [place] 75.0 [facility] CHEMISTRY Chloride Lvl 105 95 - 109 09/06 Normal [facility] CHEMISTRY Potassium 4.1 3.5 - 5.1 09/06 Normal [facility] l [facility] CHEMISTRY Sodium Lvl 143 135 - 145 09/06 Normal [facility] CHEMISTRY CO2 29 24 - 32 09/06 Normal [facility] CHEMISTRY Calcium Lvl 8.7 8.5 - 10.5 09/06 Normal [facility] CHEMISTRY BUN 6 7 - 22 09/06 LOW [facility] CHEMISTRY Creatinine 0.6 0.5 - 1.4 09/06 Normal [facility] Lvl [facility] CHEMISTRY Glucose Lvl 118 09/06 NA <sup>6</sup>I [place] nterpretive Medical Data: Center Reference Ranges : 0 - 7 days : 41 - 90 mg/dL 7 days - 150 yrs : 70 - 99 mg/dL (fasting), based on the clinical recommendatio ns of the [place] [employer]. CHEMISTRY AGAP 13.1 10.0 - 09/06 Normal [facility] 20.0 [facility] HEMATOLOGY Basophils # 0.0 0.0 - 0.2 09/06 Normal [facility] HEMATOLOGY Monocytes # 0.3 0.0 - 0.8 09/06 Normal [facility] HEMATOLOGY Eosinophils 0.1 0.0 - 0.5 09/06 Normal [facility] s [facility] HEMATOLOGY Segs-Bands # 2.8 1.5 - 8.1 09/06 Normal [facility] HEMATOLOGY Lymphocytes 1.7 1.0 - 5.5 09/06 Normal [facility] s [facility] HEMATOLOGY Basophils 0.6 0.0 - 1.0 09/06 Normal [facility] HEMATOLOGY Monocytes 6.9 2.0 - 12.0 09/06 Normal [facility] HEMATOLOGY Eosinophils 2.0 0.0 - 4.0 09/06 Normal [facility] HEMATOLOGY Segs 55.8 45.0 - 09/06 Normal [facility] 75.0 [facility] HEMATOLOGY Lymphocytes 34.7 20.0 - 09/06 Normal [facility] 40.0 [facility] HEMATOLOGY PTT 32.2 22.9 - 09/06 Normal <sup>10</sup> [facility] 35.8 Interpretive Medical Data: [facility] Therapeutic Range: 57 - 92 Seconds HEMATOLOGY PT 13.3 12.0 - 09/06 Normal [facility] 14.7 Medical [place] HEMATOLOGY INR 1.01 0.85 - 09/06 Normal <sup>8</sup>[place] 1. nterpretive Medical Data: Center RECOMMENDED RANGES FOR PROTIME INR: 2.0-3.0 for most medical and surgical thromboemboli c states. 2.5-3.5 for artificial heart valves and recurrent embolism. INR SHOULD BE USED ONLY FOR PATIENTS ON STABLE ANTICOAGULANT THERAPY. HEMATOLOGY Hct 27.5 36.0 - 09/06 [facility] [place] 48.0 /2011 [facility] HEMATOLOGY RBC 3.34 4.20 - 09/06 [facility] 5.40 /2011 [facility] HEMATOLOGY Hgb 9.7 12.0 - 09/06 [facility] 16.0 /2011 [facility] HEMATOLOGY WBC 5.0 3.7 - 10.4 09/06 Normal [facility] HEMATOLOGY MPV 9.2 7.4 - 10.4 09/06 Normal [facility] HEMATOLOGY Platelet 240 133 - 450 09/06 Normal [facility] HEMATOLOGY RDW 14.3 11.5 - 09/06 [facility] 14.5 [facility] HEMATOLOGY MCHC 35.2 32.0 - 09/06 [facility] 36.0 /2011 [facility] HEMATOLOGY MCH 28.9 27.0 - 09/06 [facility] 31.0 /2011 [facility] HEMATOLOGY MCV 82.1 81.0 - 09/06 [facility] 99.0 /2011 [facility] CHEMISTRY Magnesium 2.1 1.8 - 2.4 09/02 [facility] Lvl [facility] Microbiolo Culture: 09/01 [facility] Aspirate/Bod [facility] Fluid/Tissue Microbiolo Culture: 09/01 [facility] Anaerobic [facility] CHEMISTRY Temp [place] 37.0 08/31 NA [facility] CHEMISTRY O2 Sat [place] 27.0 40.0 - 08/31 [facility] 70.0 [facility] CHEMISTRY pCO2 [place] 47 38 - 52 08/31 Normal [facility] CHEMISTRY pH [place] 7.37 7.28 - 08/31 [facility] 7.42 [facility] CHEMISTRY BE [place] 1 -2-2 - 2 08/31 Normal [facility] CHEMISTRY HCO3 [place] 27.2 22.0 - 08/31 HI [facility] 26.0 [facility] CHEMISTRY pO2 [place] 19 20 - 49 08/31 [facility] Microbiolo Culture: 08/31 [facility] Blood /2011 [facility] Microbiolo Culture: 08/31 [facility] Wound/Absces /2011 Medical s w/[facility] Stain CHEMISTRY Lactic Acid 1.0 0.5 - 2.2 08/31 Normal [facility] Medical Center CHEMISTRY U Preg Negative Negative 08/31 Normal [facility] (09/01/2011 07:20:00) Pa dical Center URINALYSIS UA Sq Epi Occasional /LPF Few 08/31 Normal [facility] (09/01/2011 07:20:00) Pa dical Center URINALYSIS UA Leuk Est Negative Negative 08/31 [place] (09/01/2011 07:20:00) Pa dical Center URINALYSIS UA Nitrite Negative Negative 08/31 Normal [facility] (09/01/2011 07:20:00) Pa dical Center URINALYSIS UA 0.2 0.1 - 1.0 08/31 Normal [facility] Urobilinogen /2011 Medical Center URINALYSIS UA Blood Negative Negative 08/31 Normal [facility] (09/01/2011 07:20:00) Pa dical Center URINALYSIS UA Ketones >=80 mg/dL Negative 08/31 ABN Baljinder as *ABN* /2011 Medical (09/01/2011 07:20:00) Ce nter URINALYSIS UA Protein Negative Negative 08/31 Normal [facility] (09/01/2011 07:20:00) Pa dical Center URINALYSIS UA pH 6.0 5.0 - 8.0 08/31 Normal Medical Center URINALYSIS UA Bili Negative Negative 08/31 Normal [facility] (09/01/2011 07:20:00) Pa dical Center URINALYSIS UA Glucose >=1000 mg/dL Negative 08/31 [place] *ABN* /2011 Medical (09/01/2011 07:20:00) Ce nter URINALYSIS UA Spec Grav 1.035 <=1.030 08/31 [facility] URINALYSIS UA Turbidity Clear Clear 08/31 Normal [facility] (09/01/2011 07:20:00) Me dical Center URINALYSIS UA Color Yellow Yellow 08/31 NA [place] *NA* /2011 Medical (09/01/2011 07:20:00) Ce nter CHEMISTRY Lactic Acid 2.8 0.5 - 2.2 08/31 HI [facility] Medical Center CHEMISTRY Magnesium 1.5 1.8 - 2.4 08/31 LOW [facility] HEMATOLOGY Polychrom Slight None Seen 08/31 Normal [facility] (09/01/2011 02:47:00) /2011 Pa dicnh Center HEMATOLOGY Anisocyte 1+ None Seen 08/31 [facility] 02:47:00[facility] Ce nter HEMATOLOGY Large Plt Slight None [facility] 02:47[facility]00[facility] Ce nter HEMATOLOGY Tear Cell Occasional 08/31 NA [facility] HEMATOLOGY Elliptocyte Slight None Seen 08/31 [facility] [place] * Medical (09/01/2011 02:47:00) Ce nter BEDSIDE Comment1 Notify 08/22 NA [facility] GLUCOSE RN/MD Medical TESTING Center BEDSIDE Gluc POC 134 65 - 110 08/22 HI <sup>1</sup>I [facility] GLUCOSE [facility] nterpretive Medical TESTING Data: [place] Upper Reportable Limit: 200 mg/dL. BEDSIDE Gluc POC 182 65 - 110 08/22 [place] <sup>2</sup>I [facility] GLUCOSE [facility] nterpretive Medical TESTING Data: [place] Upper Reportable Limit: 200 mg/dL. BEDSIDE Comment1 Notify 08/22 [facility] GLUCOSE RN/MD [facility] TESTING Center CHEMISTRY Phosphorus 3.0 2.5 - 4.5 08/22 Normal [facility] CHEMISTRY Magnesium 1.8 1.8 - 2.4 08/22 Normal [facility] CHEMISTRY Chloride Lvl 107 95 - 109 08/22 Normal [facility] CHEMISTRY Potassium 3.0 3.5 - 5.1 08/22 CRIT <sup>4</sup>R [place] esult Medical Comment: Center Critical Result(s) called to annie genao at 08/23/2011 5:18 by tac. Read back OK. CHEMISTRY Sodium Lvl 141 135 - 145 08/22 Normal [facility] CHEMISTRY Creatinine 0.6 0.5 - 1.4 08/22 Normal [facility] CHEMISTRY CO2 23 24 - 32 08/22 LOW [facility] CHEMISTRY Calcium Lvl 7.3 8.5 - 10.5 /04 [place] [facility] CHEMISTRY Glucose Lvl 136 03 NA <sup>5</sup>I [place] nterpretive Medical Data: Center Reference Ranges : 0 - 7 days : 41 - 90 mg/dL 7 days - 150 yrs : 70 - 99 mg/dL (fasting), based on the clinical recommendatio ns of the [place] [employer]. CHEMISTRY AGAP 14.0 10.0 - 03/04 Normal [place] 20.0 [facility] CHEMISTRY BUN 5 7 - 22 03/04 LOW [facility] HEMATOLOGY Segs 69.6 45.0 - 03/04 Normal [place] 75.0 Medical Center HEMATOLOGY Lymphocytes 21.5 20.0 - 03/04 Normal [place] 40.0 [facility] HEMATOLOGY Monocytes 7.6 2.0 - 12.0 03/ Normal [facility] HEMATOLOGY Eosinophils 1.0 0.0 - 4.0 03/ [place] [facility] HEMATOLOGY Basophils 0.3 0.0 - 1.0 03/ Normal [facility] HEMATOLOGY Segs-Bands # 4.8 1.5 - 8.1 03/ Normal Baljinder as [facility] Center HEMATOLOGY Eosinophils 0.1 0.0 - 0.5 03/ Normal [place] # [facility] HEMATOLOGY Lymphocytes 1.5 1.0 - 5.5 03/ Normal [place] # [facility] HEMATOLOGY Monocytes # 0.5 0.0 - 0.8 03/ [place] [facility] HEMATOLOGY Basophils # 0.0 0.0 - 0.2 03/ [place] [facility] HEMATOLOGY MPV 11.0 7.4 - 10.4 03/ HI Medical Center HEMATOLOGY Platelet 161 133 - 450 03/ Normal [facility] HEMATOLOGY MCH 29.6 27.0 - 03/04 Normal [place] 31.0 [facility] HEMATOLOGY MCHC 35.4 32.0 - 03/04 Normal [place] 36.0 [facility] HEMATOLOGY RDW 14.1 11.5 - 03/04 Normal [place] 14.5 Medical [place] HEMATOLOGY WBC 6.8 3.7 - 10.4 03/ Normal [facility] HEMATOLOGY MCV 83.5 81.0 - 03 Normal [facility] 99.0 /2011 [facility] HEMATOLOGY RBC 4.44 4.20 - 03 Normal [facility] 5.40 /2011 [facility] HEMATOLOGY Hgb 13.1 12.0 - 08/22 Normal [facility] 16.0 [facility] HEMATOLOGY Hct 37.1 36.0 - 08/22 Normal [facility] 48.0 /2011 Medical Center BEDSIDE Comment1 Notify 08/22 NA [facility] GLUCOSE RN/MD /2011 Medical TESTING Center BEDSIDE Gluc POC 332 65 - 110 08/22 HI <sup>3</sup>I [facility] GLUCOSE [facility] nterpretive Medical TESTING Data: Center Upper Reportable Limit: 200 mg/dL. CHEMISTRY Phosphorus 2.5 2.5 - 4.5 08/21 Normal [facility]2011 [facility] CHEMISTRY Glucose Lvl 201 08/21 NA <sup>6</sup>I [place] nterpretive Medical Data: Center Reference Ranges : 0 - 7 days : 41 - 90 mg/dL 7 days - 150 yrs : 70 - 99 mg/dL (fasting), based on the clinical recommendatio ns of the [place] [employer]. CHEMISTRY BUN 7 7 - 22 08/21 Normal [facility] CHEMISTRY CO2 19 24 - 32 08/21 [facility] CHEMISTRY Creatinine 0.3 0.5 - 1.4 08/21 [facility] CHEMISTRY Sodium Lvl 137 135 - 145 08/21 [facility] CHEMISTRY Chloride Lvl 103 95 - 109 08/21 [facility] CHEMISTRY Potassium 3.6 3.5 - 5.1 08/21 Normal [facility] CHEMISTRY Calcium Lvl 7.9 8.5 - 10.5 08/21 [facility] CHEMISTRY AGAP 18.6 10.0 - 08/21 [facility] 20.0 [facility] CHEMISTRY Magnesium 1.6 1.8 - 2.4 08/21 [facility] HEMATOLOGY Basophils # 0.0 0.0 - 0.2 08/21 Normal [facility] HEMATOLOGY Eosinophils 0.4 0.0 - 4.0 08/21 [facility] HEMATOLOGY Basophils 0.5 0.0 - 1.0 [...] Phosphorus 2.6 2.5 - 4.5 03/ Normal [facility] CHEMISTRY Magnesium 1.8 1.8 - 2.4 03/ Normal [facility] Lvl Medical Center CHEMISTRY Potassium 3.7 3.5 - 5.1 03/ Normal [facility] Lvl Medical Center CHEMISTRY Sodium Lvl 137 135 - 145 03/ Normal Medical Center CHEMISTRY Creatinine 0.6 0.5 - 1.4 03/ Normal [facility] Lvl /2011 [facility] CHEMISTRY BUN 16 7 - 22 08/20 Normal [facility] CHEMISTRY Glucose Lvl 200 08/20 NA <sup>7</sup>I [place] nterpretive Medical Data: Center Reference Ranges : 0 - 7 days : 41 - 90 mg/dL 7 days - 150 yrs : 70 - 99 mg/dL (fasting), based on the clinical recommendatio ns of the [place] [employer]. CHEMISTRY Calcium Lvl 8.3 8.5 - 10.5 08/20 [place] /2011 [facility] CHEMISTRY AGAP 19.7 10.0 - 03 Normal [place] 20.0 [facility] CHEMISTRY Chloride Lvl 99 95 - 109 08/20 Normal [facility] CHEMISTRY CO2 22 24 - 32 08/20 LOW [facility] HEMATOLOGY Platelet 172 133 - 450 08/20 Normal [facility] HEMATOLOGY MPV 12.0 7.4 - 10.4 08/20 [facility] HEMATOLOGY WBC 7.3 3.7 - 10.4 08/20 Normal [facility] HEMATOLOGY RDW 14.6 11.5 - 08/20 [facility] 14.5 /2011 [facility] HEMATOLOGY MCHC 35.0 32.0 - 03 Normal [facility] 36.0 /2011 [facility] HEMATOLOGY RBC 4.54 4.20 - 08/20 Normal [facility] 5.40 /2011 [facility] HEMATOLOGY Hct 37.6 36.0 - 08/20 Normal [facility] 48.0 [facility] HEMATOLOGY MCV 82.9 81.0 - 08/20 Normal [facility] 99.0 [facility] HEMATOLOGY MCH 29.0 27.0 - 03 Normal [facility] 31.0 /2011 [facility] HEMATOLOGY Hgb 13.2 12.0 - 03 Normal <sup>8</sup>[place] 16[place] esult Medical Comment: Center rechecked, no clot seen HEMATOLOGY Elliptocyte Slight None Seen 08/20 ABN [facility]isha [facility] *ABN* /2011 Medical (08/21/2011 04:28:00) Ce nter HEMATOLOGY Polychrom Slight None Seen 08/20 Normal [facility] (08/21/2011 04:28:00) Pa dical Center HEMATOLOGY Basophils # 0.0 0.0 - 0.2 03/ [place] [facility] HEMATOLOGY Hypochrom Slight None Seen 08/20 Normal [facility] (08/21/2011 04:28:00) Pa dical Center HEMATOLOGY Monocytes # 0.6 0.0 - 0.8 03 [place] [facility] HEMATOLOGY Eosinophils 0.0 0.0 - 0.5 08/20 [place] # [facility] HEMATOLOGY Segs-Bands # 5.3 1.5 - 8.1 08/20 Normal [facility] as [facility] HEMATOLOGY Lymphocytes 1.3 1.0 - 5.5 08/20 [place] # [facility] HEMATOLOGY Basophils 0.5 0.0 - 1.0 08/20 Normal [facility] Center HEMATOLOGY Monocytes 8.5 2.0 - 12.0 08/20 Normal Medical Center HEMATOLOGY Eosinophils 0.3 0.0 - 4.0 08/20 [place] [facility] HEMATOLOGY Lymphocytes 17.3 20.0 - 08/20 LOW [place] 40.0 Medical Center HEMATOLOGY Segs 73.4 45.0 - 03 Normal [place] 75.0 Medical Center BEDSIDE Comment2 Verify 08/19 NA [facility] GLUCOSE w/Lab Medical TESTING Center CHEMISTRY S Preg Negative Negative Normal [facility] (08/19/2011 15:58:00) Pa dical Center CHEMISTRY Lipase Lvl 169 73 - 393 Normal Medical Center CHEMISTRY ALT 54 0 - 65 Normal [facility] CHEMISTRY Alk Phos 110 39 - 136 Normal [facility] CHEMISTRY Bili Direct 0.1 0.0 - 0.3 Normal Medical Center CHEMISTRY Bili Total 0.9 0.2 - 1.3 Normal [facility] Center CHEMISTRY Albumin Lvl 4.4 [...] UA Bacteria Occasional /HPF None Seen Normal [facility] (08/19/2011 15:58:00) Me dical Center URINALYSIS UA RBC 3-5 /HPF 0 - 2 ABN [place] *ABN* Medical (08/19/2011 15:58:00) Ce nter URINALYSIS UA WBC 3 0 - 5 NA Medical Center URINALYSIS UA Mucus Few /LPF None Seen Normal [facility] (08/19/2011 15:58:00) Pa dical Center URINALYSIS UA Amorph Occasional /HPF None Seen ABN [facility] *ABN* Medical (08/19/2011 15:58:00) Ce nter URINALYSIS UA 0.2 0.1 - 1.0 Normal [facility] Urobilinogen [facility] URINALYSIS UA Sq Epi Rare /LPF Few Normal [facility] (08/19/2011 15:58:00) Me dical Center URINALYSIS Micro? Performed Normal [facility] (08/19/2011 15:58:00) Me dical Center URINALYSIS UA Leuk Est Negative Negative [place] (08/19/2011 15:58:00) Me dical Center URINALYSIS UA Nitrite Negative Negative Normal [facility] (08/19/2011 15:58:00) Me dical Center URINALYSIS UA pH 5.5 5.0 - 8.0 Normal Medical Center URINALYSIS UA Blood Trace Negative ABN [facility] *ABN* Medical (08/19/2011 15:58:00) Ce nter URINALYSIS UA Bili Negative Negative Normal [facility] (08/19/2011 15:58:00) Me dical Center URINALYSIS UA Ketones 80 mg/dL Negative ABN [facility] *ABN* Medical (08/19/2011 15:58:00) Ce nter URINALYSIS UA Glucose >=1000 mg/dL Negative [place] *ABN* Medical (08/19/2011 15:58:00) Ce nter URINALYSIS UA Protein Negative Negative Normal [facility] (08/19/2011 15:58:00) Pa dical Center URINALYSIS UA Turbidity Slight Cloudy Clear Normal [facility] (08/19/2011 15:58:00) Pa dical Center URINALYSIS UA Spec Grav 1.025 <=1.030 NA Medical Center URINALYSIS UA Color Yellow Yellow Normal [facility] (08/19/2011 15:58:00) Pa dical Center CHEMISTRY AST 23 0 - 37 Normal [facility] CHEMISTRY Bili Total 1.0 0.2 - 1.3 Normal [facility] CHEMISTRY Alk Phos 115 39 - 136 Normal [facility] CHEMISTRY ALT 56 0 - 65 Normal [facility] CHEMISTRY Total 9.0 6.4 - 8.4 [facility] Protein [facility] CHEMISTRY Albumin Lvl 4.8 3.5 - 5.0 Normal [facility] Center CHEMISTRY Globulin 4.2 2.0 - 4.0 HI [facility] CHEMISTRY A/G Ratio 1.1 0.7 - 1.6 Normal [facility] CHEMISTRY B/C Ratio 30 6 - 25 [facility] HEMATOLOGY RBC Morph Normal Normal [facility] (08/19/2011 15:13:00) Pa dicnh Center HEMATOLOGY Large Plt Slight None Seen ABN [facility] *ABN* Medical (08/19/2011 15:13:00) Ce nter HEMATOLOGY Atypical 0.0 <=0.0 Normal [facility] Lymphs [facility] HEMATOLOGY Bands 0.0 0.0 - 11.0 Normal [facility] CHEMISTRY O2 Sat [place] 74.0 40.0 - [facility] 70.0 Medical Center CHEMISTRY Temp [place] 37.0 NA Medical Center CHEMISTRY pO2 [place] 42 20 - 49 Normal [facility] CHEMISTRY HCO3 [place] 17.3 22.0 - LOW [facility] 26.0 [facility] CHEMISTRY pH [place] 7.34 7.28 - Normal [facility] 7.42 /2011 [facility] Center CHEMISTRY pCO2 [place] 32 38 - 52 LOW [facility] CHEMISTRY BE [place] -7 -2-2 - 2 LOW [facility] IMMUNOLOGY CDC-HIV 1/2 Negative Negative NA MARY ALICE lombardo Ab *NA* /2011 Medical (08/19/2011 14:34:00) Ce nter Pathology Reports No Data Provided for This Section Diagnostic Reports Report Value Date Source Abdomen RUQ US EXAM: US ABDOMEN LIMITED 07/26/2016 MARY ALICE lombardo Medical EXAM: Abdomen RUQ US Center DATE: 07/26/2016 7:29 AM [facility]OURNEY[facility] GLAZIER INDICATION: Abdominal pain, acute ADDITIONAL INFORMATION: Sign [...] DX EXAM: XR CHEST 1 VIEW 07/23/2016 [facility] edical DATE: 07/23/2016 9:47 PM [facility] Cente r INDICATION: Chest pain COMPARISON: X-ray chest 1 view performed 2015 TECHNIQUE: AP chest FINDINGS: No pulmonary o r pleural-based abnormality is identified. Pulmonary vascularity is normal. The heart size is stable. No acute bony abnormality is identified. IMPRESSION: 1. No acute radiographic abnormality of the [address]even st. 2. Stable mild cardiomegaly. Retroperitoneal Complete EXAM: US RENAL 06/11/2016 [facility] US DATE: 06/11/2016 6:53 AM [address] INDICATION: Abdominal disten tion/proteinuria CT [...] DX EXAM: XR CHEST 1 VIEW 06/10/2016 [facility] edical DATE: 06/10/2016 1108 hours Cent [...] CT ABDOMEN AND PELVIS WITH CONTRAST: [address] [facility] [address] CLINICAL HISTORY: Abdominal pain, acute [...] Comments Source Systolic (mm Hg) 131 07/30/2016 [facility] Diastolic (mm Hg) 86 07/30/2016 [facility] Respitory Rate 20 07/30/2016 [facility] Heart Rate 65 07/30/2016 [facility] Temperature Oral (F) 97.4 F 07/30/2016 [facility] Systolic (mm Hg) 169 07/30/2016 [facility] Diastolic (mm Hg) 99 07/30/2016 [facility] Heart Rate 66 07/30/2016 [facility] Temperature Oral (F) 97.2 F 07/30/2016 [facility] Respitory Rate 18 07/30/2016 [facility] Heart Rate 67 07/30/2016 [facility] Temperature Oral (F) 97.0 F 07/30/2016 [facility] Respitory Rate 16 07/30/2016 [facility] Center Systolic (mm Hg) 122 07/30/2016 [facility] Center Diastolic (mm Hg) 80 07/30/2016 [facility] ed[facility] Center Weight 92.273 07/24/2016 [facility] BMI Calculated 36.04 07/24/2016 [facility] Height 160.02 cm 07/24/2016 [facility] Respitory Rate 20 06/15/2016 [facility] Systolic (mm Hg) 169 06/15/2016 [facility] Center Diastolic (mm Hg) 90 06/15/2016 [facility] edical Center Respitory Rate 16 06/15/2016 [facility] Systolic (mm Hg) 151 06/15/2016 [facility] Center Diastolic (mm Hg) 73 06/15/2016 [facility] ed[facility] Center Respitory Rate 22 06/15/2016 [facility] Systolic (mm Hg) 176 06/15/2016 [facility] Center Diastolic (mm Hg) 95 06/15/2016 [facility] Temperature Oral (F) 97.1 F 06/14/2016 [facility] Center Temperature Oral (F) 97.1 F 06/14/2016 [facility] Center Temperature Oral (F) 96.8 F 06/12/2016 [facility] Weight 103.182 06/11/2016 [facility] Height 160.02 cm 06/11/2016 [facility] BMI Calculated 40.3 06/11/2016 [facility] Heart Rate 82 06/11/2016 [facility] Heart Rate 81 06/11/2016 [facility] Heart Rate 82 06/10/2016 [facility] Weight 86.364 06/10/2016 [facility] BMI Calculated 33.73 06/10/2016 [facility] Height 160.02 cm 06/10/2016 [facility] Temperature Oral (F) 98.0 F 06/26/2014 [facility] Systolic (mm Hg) 111 06/26/2014 [facility] Heart Rate 104 06/26/2014 [facility] [place] Diastolic (mm Hg) 70 06/26/2014 [facility] Respitory Rate 18 06/26/2014 [facility] Systolic (mm Hg) 109 06/26/2014 [facility] dical [place] Diastolic (mm Hg) 66 06/26/2014 [facility] Respitory Rate 18 06/26/2014 [facility] Temperature Oral (F) 98.0 F 06/26/2014 [facility] Temperature Oral (F) 98.2 F 06/26/2014 [facility] Respitory Rate 21 06/26/2014 [facility] Systolic (mm Hg) 106 06/26/2014 [facility] dical [place] Diastolic (mm Hg) 65 06/26/2014 [facility] Heart Rate 118 06/26/2014 [facility] Heart Rate 113 06/26/2014 [facility] Height 154.94 cm 06/26/2014 [facility] [place] Weight 75 06/26/2014 [facility] BMI Calculated 31.24 06/26/2014 [facility] Respitory Rate 18 04/15/2013 [facility] Diastolic (mm Hg) 89 04/15/[address] [facility] [address] Heart Rate 81 04/15/2013 [facility] Systolic (mm Hg) 149 04/15/2013 [facility] Oral (F) 98.7 F 04/15/2013 [facility] Resp[facility] Rate 18 04/15/2013 [facility] Diastolic (mm Hg) 87 04/15/[address] Systolic (mm Hg) 145 04/15/2013 [facility] Temperature Oral (F) 98.2 F 04/15/2013 [facility] Heart Rate 88 04/15/2013 [facility] Height 160.02 cm 04/15/2013 [facility] Weight 63.636 04/15/2013 [facility] Temperature Oral (F) 98.6 F 04/15/2013 [facility] Respitory Rate 18 04/15/2013 [facility] Heart Rate 85 04/15/2013 [facility] Diastolic (mm Hg) 107 04/15/[address] Systolic (mm Hg) 172 04/15/2013 [facility] Weight 58.636 03/14/2012 [facility] Systolic (mm Hg) 138 12/01/2011 [facility] dical Center Respitory Rate 18 12/01/2011 [facility] Heart Rate 90 12/01/2011 [facility] Center Diastolic (mm Hg) 80 12/01/2011 [facility] ed[facility] Center Temperature Oral (F) 99.6 F 12/01/2011 [facility] Diastolic (mm Hg) 106 11/30/2011 [facility] Center Heart Rate 96 11/30/2011 [facility] Center Respitory Rate 18 11/30/2011 [facility] Medi [facility] Center Systolic (mm Hg) 187 11/30/2011 [facility] Center Temperature Oral (F) 99.8 F 11/30/2011 [facility] Respitory Rate 20 11/30/2011 [facility] Medi [facility]ya Center Systolic (mm Hg) 178 11/30/2011 [facility] d[facility] Center Diastolic (mm Hg) 104 11/30/2011 [facility] ed[facility] Center Heart Rate 102 11/30/2011 [facility] Temperature Oral (F) 99.8 F 11/30/2011 [facility] Weight 56.818 11/29/2011 [facility] Height 157.48 cm 11/29/2011 [facility] Weight 57.273 11/28/2011 [facility] Weight 66.364 09/18/2011 [facility] Height 154.94 cm 09/18/2011 [facility] Heart Rate 75 09/09/2011 [facility] Systolic (mm Hg) 115 09/09/2011 [facility] Center Diastolic (mm Hg) 69 09/09/2011 [facility] edical Center Respitory Rate 18 09/09/2011 [facility] Temperature Oral (F) 97.5 F 09/09[facility] Diastolic (mm Hg) 68 09/09/2011 [facility] Heart Rate 66 09/09/2011 [facility] Temperature Oral (F) 98.6 F 09/09/[facility] 20 09/09/2011 [facility] Systolic (mm Hg) 118 09/09/2011 [facility] Respitory Rate 20 09/09/2011 [place] [facility] Diastolic (mm Hg) 71 09/09/2011 [facility] ed[facility] Center Systolic (mm Hg) 123 09/09/2011 [facility] Heart Rate 67 09/09/2011 [facility] Temperature Oral (F) 98.7 F 09/09/2011 [facility] Weight 68.182 09/01/2011 [facility] Height 154.94 cm 09/01/2011 [facility] Height 154.94 cm 09/01/2011 [facility] Weight 68.182 09/01/2011 [facility] Respitory Rate 20 08/23/2011 [facility] Heart Rate 93 08/23/2011 [facility] Systolic (mm Hg) 136 08/23/2011 [facility] Center Diastolic (mm Hg) 82 08/23/2011 [facility] ed[facility] Center Temperature Oral (F) 97.7 F 08/23/2011 [facility] Heart Rate 101 08/23/2011 [facility] Temperature Oral (F) 98.2 F 08/23/2011 [facility] Diastolic (mm Hg) 105 08/23/2011 [facility] ed[facility] Center Systolic (mm Hg) 172 08/23/2011 [facility] dical Center Respitory Rate 20 08/23/2011 [facility] Systolic (mm Hg) 158 08/23/2011 [facility] Center Diastolic (mm Hg) 98 08/23/2011 [facility] Temperature Oral (F) 98.3 F 08/23/2011 [facility] Heart Rate 95 08/23/2011 [facility] Medica [facility] Center Respitory Rate 20 08/22/2011 [facility] Height 154.94 cm 08/20/2011 [facility] Weight 67.273 08/20/2011 [facility] Height 154.94 cm 08/19/2011 [facility] Weight 67.273 08/19/2011 [facility] Encounters Location Location Encounter Encounter Reason Attending ADM DC Stat us Source Details Type Number For Provider Date Date Visit [facility] Inpatient [id number] DKNaun HENRIQUEZ 08/22 Active Medical 0 AHMED /2011 [facility] Inpatient [id number] ELBOW FLORENCE 08/31 09/08 Active Medical 1 ABSCESS/ OMIDVAR /2011 [facility] CEMIA Center [facility] Emergency [id number] CASA 09/17 09/17 Discha rg Medical 2 BUBLEWICZ /2011 ed [facility] OU [id number] N/V OSMAR 11/27 11/29 Active Medical 3 INABILIT GUNNAR /2011 [facility] PO Emergency [id number] HUNG HERNANDEZ 03/14 03/14 Discha rg [facility] ed [facility] Emergency [id number] ABD PAIN OMAIRA 04/14 04/15 Active [facility] 7 MARRY /2012 [facility] EC [id number] Atul 06/26 06/26 [facility] Emergency 8 Ostermayer /2014 [facility] Inpatient [id number] Joe 06/10 [facility] [facility] Inpatient [id number] Danaeja Cha 07/24 07/30 Vin 0 /2016 [facility] Preadmit [id number] NAUSEA, CASA Active M [facility] 8 VOMITING WOLLNER [facility] Outpatient [id number] GASTROPE NON Canc el Medical 6 RIS PHYSICIAN [facility] Outpatient [id number] GASTROPE NON Canc [facility] Medical 5 [facility] [place] Procedures Procedure Code Date Perfomer Comments Source Emergency [id number] 04/15/2013 [facility] department visit for the evaluation and management of a patient, which requires these 3 kamara components within the constraints imposed by the urgency of the patient's clinical condition and/or mental status: A comprehensive history; A comprehensi Injection or 99.29 04/15/2013 [facility] Infusion of Other Therapeutic or Prophylactic Substance Intravenous 61750 04/15/2013 [facility] infusion, hydration; each additional hour (List separately in addition to code for primary procedure) Therapeutic, 52865 04/15/2013 [facility] prophylactic, or diagnostic injection (specify substance or drug); each additional sequential intravenous push of a new substance/drug (List separately in addition to code for primary procedure) Therapeutic, 77278 04/15/2013 [facility] prophylactic, or diagnostic injection (specify substance or drug); intravenous push, single or initial substance/drug section [id number] [facility] Tubal ligation [id number] [facility] Assessment and Plan Assessment and Plan Date Source Extracted from:Title: Hospitalist Progress Note 07/30/2016 [facility] Author: Luna Jamison MD [place] Date: 07/30/16 Assessment/Plan 1.Acute on chronic kidney [...] que stions. We can be reached at [phone]. Extracted from:Title: History and Physical Author: Danae [...] Weight 92.273, kg, Start date: 07/24/16 9:00:00 JOURNEYMAN GLAZIER, Duration: 30 day, Stop date: 08/22/16 9:00:00 JOURNEYMAN GLAZIER atorvastatin, 40 mg, 1 tab, Route: PO , Drug form: TAB, Bedtime, Dosing Weight 92.273, kg, Start date: 07/24/16 21:00:00 JOURNEYMAN GLAZIER, Duration: 30 day, Stop date: 08/22/16 21:00:00 JOURNEYMAN GLAZIER buPROPion, 150 mg, 1 tab, Route: PO, Drug form: ERTAB, Daily, Dosing Weight 92.273, kg, Start date: 07/24/16 9:00:00 JOURNEYMAN GLAZIER, Duration: 30 day, Stop date: 08/22/16 9:00:00 JOURNEYMAN GLAZIER Dextrose 50% Syringe, 25 gm, 50 mL, R oute: IVP, Drug Form: INJ, Dosing Weight 92.273, kg, PRN, PRN Blood Glucose Results, Start date: 07/24/16 2:40:00 JOURNEYMAN GLAZIER, Duration: 30 day, Stop date: 08/23/16 2:39:00 JOURNEYMAN GLAZIER Dextrose 50% Syringe, 12.5 gm, 25 mL, Route: IVP, Drug Form: INJ, Dosing Weight 92.273, kg, PRN, PRN Blood Glucose Results, Start date: 07/24/16 2:40:00 JOURNEYMAN GLAZIER, Duration: 30 day, Stop date: 08/23/16 2:39:00 JOURNEYMAN GLAZIER Depakote ER 500 mg oral tablet, exten ded release, 500 mg, 1 tab, Route: PO, Drug form: ERTAB, QAM, Dosing Weight 92.273, kg, Start date: 07/24/16 9:00:00 JOURNEYMAN GLAZIER, Duration: 30 day, Stop date: 08/22/16 9:00:00 JOURNEYMAN GLAZIER docusate, 100 mg, 1 cap, Route: PO, D rug form: CAP, BID, Dosing Weight 92.273, kg, PRN Constipation, Start date: 07/24/16 1:20:00 JOURNEYMAN GLAZIER, Duration: 30 day, Stop date: 08/23/16 1:19:00 JOURNEYMAN GLAZIER Lasix, 40 mg, 4 mL, Route: IVP, Drug form: INJ, Q12H, Dosing Weight 92.273, kg, Start date: 07/24/16 9:00:00 JOURNEYMAN GLAZIER, Duration: 30 day, Stop date: 08/22/16 21:00:00 JOURNEYMAN GLAZIER gabapentin 300 mg oral capsule, 1 cap , Route: PO, Drug form: CAP, BID, Dosing Weight 92.273, kg, Start date: 07/24/16 9:00:00 JOURNEYMAN GLAZIER, Duration: 30 day, Stop date: 08/22/16 17:00:00 JOURNEYMAN GLAZIER glucagon, 1 mg, Route: IM, Drug form: PDR/INJ, PRN, Dosing Weight 92.273, kg, PRN Blood Glucose Results, Start date: 07/24/16 2:40:00 JOURNEYMAN GLAZIER, Duration: 30 day, Stop date: 08/23/16 2:39:00 JOURNEYMAN GLAZIER hydrALAZINE 100 mg oral tablet, 100 m g, 1 tab, Route: PO, Drug form: TAB, BID, Dosing Weight 92.273, kg, Start date: 07/24/16 9:00:00 JOURNEYMAN GLAZIER, Duration: 30 day, Stop date: 08/22/16 17:00:00 JOURNEYMAN GLAZIER insulin aspart, 4 unit, 0.04 mL, Rout e: SUB-Q, Drug form: SOLN, TID-Before Meals, Dosing Weight 92.273, kg, PRN Blood Glucose Results, Start date: 07/24/16 2:40:00 JOURNEYMAN GLAZIER, Duration: 30 day, Stop date: 08/23/16 2:39:00 JOURNEYMAN GLAZIER insulin aspart, 5 unit, 0.05 mL, Rout e: SUB-Q, Drug form: SOLN, TID-Before Meals, Dosing Weight 92.273, kg, PRN Blood Glucose Results, Start date: 07/24/16 2:40:00 JOURNEYMAN GLAZIER, Duration: 30 day, Stop date: 08/23/16 2:39:00 JOURNEYMAN GLAZIER insulin aspart, 2 unit, 0.02 mL, Rout e: SUB-Q, Drug form: SOLN, TID-Before Meals, Dosing Weight 92.273, kg, PRN Blood Glucose Results, Start date: 07/24/16 2:40:00 JOURNEYMAN GLAZIER, Duration: 30 day, Stop date: 08/23/16 2:39:00 JOURNEYMAN GLAZIER insulin aspart, 3 unit, 0.03 mL, Rout e: SUB-Q, Drug form: SOLN, TID-Before Meals, Dosing Weight 92.273, kg, PRN Blood Glucose Results, Start date: 07/24/16 2:40:00 JOURNEYMAN GLAZIER, Duration: 30 day, Stop date: 08/23/16 2:39:00 JOURNEYMAN GLAZIER insulin aspart, 1 unit, 0.01 mL, Rout e: SUB-Q, Drug form: SOLN, TID-Before Meals, Dosing Weight 92.273, kg, PRN Blood Glucose Results, Start date: 07/24/16 2:40:00 JOURNEYMAN GLAZIER, Duration: 30 day, Stop date: 08/23/16 2:39:00 JOURNEYMAN GLAZIER insulin aspart, 2 unit, 0.02 mL, Rout e: SUB-Q, Drug form: SOLN, TID-Before Meals, Dosing Weight 92.273, kg, Start date: 07/24/16 7:30:00 JOURNEYMAN GLAZIER, Duration: 30 day, Stop date: 08/22/16 16:30:00 JOURNEYMAN GLAZIER Lantus 100 units/mL, 40 unit, 0.4 mL, Route: SUB-Q, Drug form: SOLN, Daily, Dosing Weight 92.273, kg, Start date: 07/24/16 9:00:00 JOURNEYMAN GLAZIER, Duration: 30 day, Stop date: 08/22/16 9:00:00 JOURNEYMAN GLAZIER metoprolol extended release, 100 mg, 2 tab, Route: PO, Drug form: ERTAB, Daily, Start date: 07/24/16 9:00:00 JOURNEYMAN GLAZIER, Duration: 30 day, Stop date: 08/22/16 9:00:00 JOURNEYMAN GLAZIER ondansetron, 4 mg, 2 mL, Route: IVP, Drug form: INJ, Q6H, Dosing Weight 92.273, kg, PRN Nausea and Vomiting, Start date: 07/24/16 1:20:00 JOURNEYMAN GLAZIER, Duration: 30 day, Stop date: 08/23/16 1:19:00 JOURNEYMAN GLAZIER Protonix, 40 mg, 1 tab, Route: PO, Dr ug form: ECTAB, Daily, Dosing Weight 92.273, kg, Start date: 07/24/16 9:00:00 JOURNEYMAN GLAZIER, Duration: 30 day, Stop date: 08/22/16 9:00:00 JOURNEYMAN GLAZIER Zoloft, 200 mg, 2 tab, Route: PO, Ezio g form: TAB, Daily, Dosing Weight 92.273, kg, Start date: 07/24/16 9:00:00 JOURNEYMAN GLAZIER, Duration: 30 day, Stop date: 08/22/16 9:00:00 JOURNEYMAN GLAZIER Up ad monique Ambulation Basic Metabolic Panel [...] Acute Care Floor) Troponin-I Troponin-T Vital Signs [facility] hospitalist is primary. Please call [phone] for additional questions. Prophylaxis TEDs Disposition DC when medically stable. Extracted from:Title: Team A Discharge Summary 06/15/2016 [facility] Medical Author: Gina Gomes MD Center Date: [...] management Follow Up Appts: Follow Up With [facility] , Call for appointment, faby [...] All Problems (Selected) Hypertension / SNOMED CT 34089534 / Confirmed Hypokalemia / SNOMED CT 80013543 / Confirmed Hypomagnesemia / ICD-9-CM 275.2 / Confirmed MRSA / SNOMED CT 573178449 / Confirmed Problem added by Discern Expert. 09/01/11 - Elbow wound Nausea and vomiting / SNOMED CT 28147524 / Confirmed Objective Meds Scheduled Meds (15):aspirin [...] que stions. We can be reached at [phone]. Extracted from:Title: Medicine Team A History and Physical Author: Silverio Robles MD Date: 06/10/16 Medicine Team A History and Physical Note: Patient Room: [place] [address], [facility] CATHI ROWLEY 35y (: 1980) F Attending: [...] Positive for difficulty breathing and shortness of iilr ath ABD- Denies any abdominal pain, diarrhea, [...] upper and lower extremities strength 5/5 bilaterally, health equipment servicer strength 5/5, pitting pedal edema bilaterally 2+ [...] radiographic data, and agree with this note. oJe Juárez MD, FACP, FASN, FCCM Plan of Care No Data Provided for This Section Social History Social History Date Source Social History TypeResponse 06/11/2016 [facility] Substance Abuse Use: None. 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
--- OUTSIDE RECORDS SUMMARY | 2020-07-20 20:30 | XMS REPORT | Continuity of Care Document ---
:1980 Author Organization [facility] t Address [address] [place] [address] Care Team Providers Name Role Phone Sharpless Primary Care Physician Marshall BURNS, K.H. Attending Clinician Doctor Unassigned, Name Attending Clinician Unavailable Chivo Attending Clinician Unavailable Chivo Attending Clinician Unavailable HAWA BHAKTA Attending Clinician Unavailable Yaquelin Attending Clinician Yuriy Juárez Attending Clinician Cem Valdez Attending Clinician Chivo Admitting Clinician Unavailable HAWA BHAKTA Admitting Clinician Unavailable Phu Cha Admitting Clinician Yuryi Juárez Admitting Clinician Problems Condition Condition Condition Status Onset Resolution Last Treating Co mments Source Name Details Category Date Date Treatment Clinician Date NEW Diagnosis Active 2018-07-26 Mem oria EVALUATION - 09:39:00 l NEW 00:00: [place] EVALUATION 00 Active 07/12/2018 [facility] Liver Liver Disease Active [facility] failure, failure, 7[facility] acute acute 00:00: [address] SANJUANA (acute SANJUANA (acute Disease Active [facility] kidney kidney 7-16 [facility] injury) injury) 00:00: Medical 00 Center CKD CKD Disease Active [facility] (chronic (chronic 7-16 [facility] - kidney kidney 00:00: Medical disease) disease) 00 Center Acute Acute Disease Active [facility] encephalop encephalop 7-16 Pati kes - athy athy 00:00: Medical 00 [place] Ulcer of Ulcer of Disease [facility] toe of toe of [facility] - left foot left foot 00:00: Medi tawnya 00 Center Peripheral Peripheral Disease Active [facility] neuropathy neuropathy 7-16 Pati kes - 00:00: Medical 00 [place] Hyperglyce Hyperglyce Disease Active [facility] 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 16 Pati kes - type 2 type 2 00:00: Medical diabetes diabetes 00 Center mellitus mellitus Gastropare Gastropare Disease Active [facility] sis due to sis due to 16 Pati kes - DM DM 00:00: Medical 00 [place] Cyclic Cyclic Disease Active [facility] vomiting vomiting 16 [facility] - syndrome syndrome 00:00: Medica l 00 Center Anxiety Anxiety Disease Active [facility] -16 [facility] - 00:00: Medical 00 [place] Bipolar Bipolar Disease Active [facility] disorder disorder 16 [facility] - 00:00: Medical 00 [place] Hypertensi Hypertensi Disease Active [facility] ve ve 16 [facility] - emergency emergency 00:00: [facility] 00 Center CONGESTION Diagnosis Active 2016-07-24 Memoria AMD - 01:49:00 l DIARRHEA 00:00: Vin CONGESTION 00 AMD DIARRHEA Active 07/23/2016 [facility] ACUTE RESP Diagnosis Active 2016-09-09 Memoria FAILURE - 09:11:00 l ACUTE 00:00: Vin RESP 00 FAILURE Active 07/23/2016 [facility] SOB/SWELLI Diagnosis Active 2015-062016-06-10 Memoria NG 2- 15:48:00 l 00:00: Vin SOB/SWELLI 00 NG Active 6 [facility] CHF/RENAL Diagnosis Active 2015-062016-06-24 Memoria DISEASE 08-11 15:35:00 l 00:00: Vin CHF/RENAL 00 DISEASE Active 06/10/2016 [facility] ABDOMINAL Diagnosis Active 2014-06-26 Memoria PAIN, 1 05:44:00 l SEIZURES 00:00: [place] ABDOMINAL 00 PAIN, SEIZURES Active 06/26/2013 [facility] ABD PAIN Diagnosis Active 2012-062013-04-19 M emoria 0- 21:51:00 l ABD PAIN 19:00: Jake n 00 Active 04/14/2013 [facility] GASTROPERI Diagnosis Active 2012-09-13 Memoria SIS 2- 15:17:00 l 00:00: Vin GASTROPERI 00 SIS Active 08/02/2012 [facility] ABDOMINAL Diagnosis Active 2012-03-14 Memoria PAIN 03-14 16:56:00 l 14:00: Vin ABDOMINAL 00 PAIN Active 03/14/2012 [facility] NAUSEA, Diagnosis Active 2012-03-14 Me moria VOMITING 03-14 13:25:00 l NAUSEA, 08:00: [place] VOMITING 00 Active 03/14/2012 [place] VOMITTING Diagnosis Active 2011-11-28 Memoria 11-27 16:28:00 l 00:00: Vin VOMITTING 00 Active 11/28/2011 [facility] N/V Diagnosis Active 2011-12-08 Mem oria INABILITY 11-27 11:14:00 l TO N/V 00:00: Vin TOLERATE INABILITY 00 PO TO TOLERATE PO Active 2 [facility] VOMITTING, Diagnosis Active 2011-09-18 Memoria HIGH BLOOD 09-17 09:45:00 l SUGAR 00:00: Vin VOMITTING, 00 HIGH BLOOD SUGAR Active 09/18/2011 [facility] MRSA Problem Active 2012-03-16 Memor ia 3- 09:11:30 l MRSA 00:00: [place] 00 Active 09/01/2011 Problem 03/16/2012 - Elbow [id number] emily added by Discern Expert. [facility], [place] Methicilli Problem Active 2016-08-02 M emoria n 3-13 02:46:22 l resistant 00:00: [place] Staphyloco Methicilli 00 ccus n aureus resistant (organism) Staphyloco ccus aureus (organism) Active 09/01/2011 Problem 08/02/2016 09/01/11 - Elbow woundProbl em added by Discern Expert. [facility] ELBOW Diagnosis Active 2011-09-10 Mem oria ABSCESS/HY - 16:26:00 l PERGLYCEMI ELBOW 00:00: Nidia nn A ABSCESS/HY 00 PERGLYCEMI A Active 08/31/2011 [facility] VOMITING, Diagnosis Active 2011-09-01 Memoria BLOOD 08-30 03:19:00 l SUGAR 00:00: Vin READINGS VOMITING, 00 HIGH BLOOD SUGAR READINGS HIGH Active 08/31/2011 [facility] Hypokalemi Problem Active 2012-03-16 M emoria a 08-22 09:11:30 l 00:00: Vin Hypokalemi 00 a Active 08/23/2011 Problem 03/16/2012 [facility] VOMITING Diagnosis Active 2011-08-19 M emoria 16:21:00 l VOMITING 00:00: Jake n 00 Active 08/19/2011 [facility] DKA Diagnosis Active 2011-08-24 Mem oria 11:27:00 l DKA 00:00: [place] 00 Active 08/19/2011 [facility] Final: Problem 2016-08-02 Memor ia Acute 02:46:22 l respirator Final: Herm naeem y failure, Acute unspecifie respirator d whether y failure, with unspecifie hypoxia or d whether hypercapni with a hypoxia or hypercapni a 08/02/2016 [facility] Hypoglycem Problem Inactiv 2013-04-22 Memoria ia e 04:46:33 l (disorder) Jake n Hypoglycem ia (disorder) Inactive Problem 04/22/2013 [facility] Hypoglycem Problem Inactiv 2012-03-16 Memoria ia e 09:11:30 l [place] Hypoglycem ia Inactive Problem 03/16/2012 [facility] Diabetes Problem Resolve 2016-08-02 Me moria mellitus d 02:46:22 l (disorder) Diabetes He rmann mellitus (disorder) Resolved Problem 08/02/2016 [facility] Gastropare Problem Resolve 2016-08-02 Memoria sis d 02:46:22 l (disorder) Jake n Gastropare sis (disorder) Resolved Problem 08/02/2016 [facility] Hypertensi Problem Resolve 2016-08-02 Memoria ve d 02:46:22 l disorder, [place] systemic Hypertensi arterial ve (disorder) disorder, systemic arterial (disorder) Resolved Problem 08/02/2016 [facility] Psychiatri Problem Resolve 2016-08-02 Memoria c d 02:46:22 l behavioral Jake n disability Psychiatri (finding) c behavioral disability (finding) Resolved Problem 08/02/2016 [facility] Seizure Problem Resolve 2016-08-02 Mem oria (finding) d 02:46:22 l Seizure [place] (finding) Resolved Problem 08/02/2016 [facility] Hypomagnes Problem Active 2013-04-22 M emoria emia 04:46:33 l [place] Hypomagnes emia Active Problem 04/22/2013 [facility] Hypertensi Problem Active 2012-03-16 M emoria on 09:11:30 l Vin Hypertensi on Active Problem 2 [facility] Nausea and Problem Active 2012-03-16 M emoria vomiting 09:11:30 l Nausea Vin and vomiting Active Problem 03/16/2012 [facility] DMI Diagnosis Active 2011-08-24 Mem oria KETOACD 11:27:00 l UNCONTROLD DMI Jake n KETOACD UNCONTROLD Active [facility] OTHER Diagnosis Active 2011-09-10 Mem oria GENERAL 16:26:00 l SYMPTOMS OTHER [place] GENERAL SYMPTOMS Active [facility] HEART Diagnosis Active 2016-06-24 Mem oria FAILURE, 15:35:00 l UNSPECIFIE HEART Nidia nn D FAILURE, UNSPECIFIE D Active [facility] ACUTE Diagnosis Active 2016-09-09 Mem oria RESPIRATOR 09:11:00 l Y FAILURE, ACUTE Nidia nn UNSP W RESPIRATOR HYPOXI Y FAILURE, UNSP W HYPOXI Active [facility] Discharge Problem 2014-06-28 2014-06-28 Memoria Diagnosis: 1- 16:34:37 16:34:37 l Gastropare 06:00: Jake gonzalez sis Discharge 00 Diagnosis: Gastropare sis 06/26/2014 06/28/2014 [facility] History of Past Illness Condition Condition Condition Status Onset Resolution Last Treating Co mments Source Name Details Category Date Date Treatment Clinician Date Nausea and Problem Resolve 2016-08-02 2016-08-02 Memoria vomiting d 6-10 02:46:22 02:46:22 l (disorder) Nausea 00:00: Herm naeem and 00 vomiting (disorder) Resolved 11/29/2011 Problem 08/02/2016 [facility] Hypokalemi Problem Resolve 2016-08-02 2016-08-02 Memoria a d 3-04 02:46:22 02:46:22 l (disorder) 00:00: Jake n Hypokalemi 00 a (disorder) Resolved 08/23/2011 Problem 08/02/2016 [facility] Disorder Problem Resolve 2016-08-02 2016-08-02 Memoria of d 3-04 02:46:22 02:46:22 l magnesium Disorder 00:00: Her braden metabolism of 00 (disorder) magnesium metabolism (disorder) Resolved 08/23/2011 Problem 08/02/2016 [facility] Hyperglyce Problem Resolve 2016-08-02 2016-08-02 Memoria maraym d 3- 02:46:22 02:46:22 l (disorder) 00:00: Jake n Hyperglyce 00 maryam (disorder) Resolved 08/20/2011 Problem 08/02/2016 [facility] Ketoacidos Problem Resolve 2016-08-02 2016-08-02 Memoria is in d 2- 02:46:22 02:46:22 l diabetes 00:00: Vin mellitus Ketoacidos 00 (disorder) is in diabetes mellitus (disorder) Resolved 08/19/2011 Problem 08/02/2016 [facility] DKA Problem Resolve 2013-04-22 2013-04-22 Memoria (diabetic d 2- 04:46:33 04:46:33 l ketoacidos DKA 00:00: Jake n es) (diabetic 00 ketoacidos es) Resolved 08/19/2011 Problem 04/22/2013 [facility] Hyperglyce Problem Inactiv 2012-03-16 2012-03-16 Memoria maryam e 3- 09:11:30 09:11:30 l 00:00: Vin Hyperglyce 00 maryam Inactive 08/20/2011 Problem 03/16/2012 [facility] Allergies, Adverse Reactions, Alerts Allergy Allergy Status [...] 00 Center codeine codeine Active Memoria l [place] penicill penicill Active Memori a ins ins l [place] Prolex Prolex Active Memoria DM DM l Vin Ambien Ambien Active Memoria l Vin lisinopr lisinopr Active Memori a il il l Vin Social History Social Habit Start Date Stop Date Quantity Comments Source Sex Assigned At [facility] Cigarettes smoked 2017-12-17 2017-12-17 [facility] - current (pack per 00:00:00 00:00:00 [facility] Center day) - Reported Cigarette 2017-12-17 2017-12-17 [facility] - pack-years 00:00:00 00:00:00 [facility] Alcohol intake 2017-12-17 2017-12-17 [facility] non-drinker of Medical Ce nter alcohol (finding) Tobacco Comment 2017-01-03 2017-01-03 patient stated [facility] t Lujazmin - 00:00:00 00:00:00 she stopped [address] month ago. History of tobacco 2016-12-[address] [facility] use [facility]:00:00 [facility] Center Social History 2016-06-11 2016-06-11 [facility] Claudia lainez 04:38:12 04:38:12 Smoking Status Start Date Stop Date Source Former smoker 2017-12-17 00:00:00 2017-12-17 00:00:[address] [facility] Medications Ordered Filled Start Stop Current Ordering Indication Dosage Frequency Signature Comments Components Source Medication Medication Date Date Medication? Clinician (SIG) Name Name divkatyaproex 2017 Yes depression 500mg QD Take 500 [...] Medica l 59 Center hydrALAZINE Yes 100mg [id number] Take [address] [facility] (APRESOLINE 7-20 [id number] mg by L ukes - ) 100 MG 15:20: 3D mouth 3 Medica l tablet 59 (three) Center times daily. magnesium 2017- Yes 400mg QD Take [address] [facility] oxide 7-20 mg by [facility] - (MAG-OX) 15:20: mouth Medical 400 mg 59 daily. Center tablet metoclopram 2017-0 Yes 10mg [id number] Take [address] [facility] gadiel HCl 7-20 [id number] by mouth 3 [facility] - (REGLAN) 10 15:20: 3D (three) Med ical MG tablet 59 times Center daily. meclizine 2017- Yes 12.5mg Take 12.[address] (ANTIVERT) 7-20 mg by [facility] - 25 MG 15:20: mouth 3 Medical tablet 59 (three) Center times daily as needed. sertraline Yes anxiety QD Take by [facility] (ZOLOFT) 7-20 with mouth [facility] - 100 MG 15:20: depression daily. Med ical tablet 59 Center medroxyPROG Yes Inject [facility] ESTERone 7-20 intramuscu [facility] - (DEPO-PROVE 15:20: larly Medic al RA) 150 59 every 3 Center mg/mL (three) injection months. insulin 2016- Yes 5U QD Inject [address] glargine 7-20 Units [facility] - (LANTUS) 00:00: subcutaneo Med ical 100 unit/mL 00 usly every Ce nter injection morning Use as directed . Furosemide Yes 40 mg = 1 Me moria 40 MG Oral 2-09 tab, PO, l Tablet 15:07: Daily, # [place] 00 30 tab, 0 Refill(s), Pharmacy: [facility] [id number] Bumex No 0.5 mg, Memoria 2-09 Route: PO, l 15:00: Drug form: Vin 00 TAB, Daily, Dosing Weight 92.273, kg, Start date: 07/30/16 9:00:00 [employer]UM[employer] RESOURCES SUPERVISOR, Duration: 30 day, Stop date: 08/28/16 9:00:00 [employer]UMAN [employer] SUPERVISOR Lasix No Notes: Memoria 2-08 (Same as: l 20:05: Lasix) Vin 00 May cause GI upset. Give with food or milk. Hydralazine No Notes: Mendoza janice 2-08 (Same as: l 06:05: Apresoline Vin 00 ) Push over 5 minutes sodium 2016- No 1,000 mL, Memori a chloride 2-05 Rate: 125 l 0.9% 1000 18:26: ml/hr, Jake n ml INJ 00 Infuse 1,000 mL over: 8 hr, Route: IV, Dosing Weight 92.273 kg, Total Volume: 1,000, Start date: 07/26/16 12:26:00 HUMAN RESOURCES SUPERVISOR, Duration: 30 day, Stop date: 08/25/16 12:25:00 HUM[employer]OURCES SUPERVISOR Sodium 2017- No 500 mL, Memoria Chloride 2-05 500 ml/hr, l 0.154 13:30: Infuse [place] MEQ/ML 00 Over: 1 Injectable hr, Route: Solution IV, 500, Drug form: INJ, ONCE, Priority: STAT, Dosing Weight 92.273 kg, Start date: 07/26/16 7:30:00 HUMAN RESOURCES SUPERVISOR, Duration: 1 doses or times, Stop date: 07/26/16 7:30:00 HUMAN RESOURCES SUPERVISOR Insulin No 60 Memoria regular 2-04 units) l 08:39: WASTE: F/P [place] 00 - Black; E - Municipal Trash [...] Roll in l Human 05:42: palms of [place] 00 hands gently; Do not shake vigorously . (Same as: NovoLOG) "single patient use only" WASTE: F/P - Black; E - Municipal Trash Bin Stable for 28 days at room temperatur e. Expires in days from ____Date Insulin, No Notes: Memoria Aspart, 2-04 Roll in l Human 03:28: palms of [place] 00 hands gently; Do not shake vigorously [...] Weight 92.273, kg, Start date: 07/24/16 9:00:00 HUMAN RESOURCES SUPERVISOR, Duration: 30 day, Stop date: 08/22/16 9:00:00 HUMAN RESOURCES SUPERVISOR 24 HR No Notes: Memoria Divalproex 2-03 [...] form: ERTAB, Daily, Start date: 07/24/16 9:00:00 HUMAN RESOURCES SUPERVISOR, Duration: 30 day, Stop date: 08/22/16 9:00:00 HUMAN RESOURCES SUPERVISOR Insulin No Notes: Memoria Glargine 2-03 Same [...] janice 2-03 (Same as: l 14:50: Zofran) Vin 00 MEDICATION WASTE Product Size: 4 mg Product Wasted: ___ mg Morphine No Notes: Memoria 2-03 (Same l 14:50: as:MORPhin Vin 00 e Sulfate) Insulin, No Notes: Memoria [...] 2-03 Same as l 11:28: Dilaudid Vin 00 Insulin, No Notes: Memoria Aspart, 2-03 Roll in l Human 08:40: palms of [place] 00 hands gently; Do not shake vigorously . (Same as: NovoLOG) "single patient use only" WASTE: F/P - Black; E - Municipal Trash Bin Stable for 28 days at room temperatur e. Expires in days from ____Date Glucagon No 1 mg, Memoria 2-03 Route: IM, l 08:40: Drug form: [place] 00 PDR/INJ, PRN, Dosing Weight 92.273, kg, PRN Blood Glucose Results, Start date: 07/24/16 2:40:00 HUMAN RESOURCES SUPERVISOR, Duration: 30 day, Stop date: 08/23/16 2:39:00 HUMAN [employer]OURCES SUPERVISOR Dextrose No 25 gm, 50 Mendoza janice 50% Syringe 2-03 mL, Route: l 08:40: IVP, Drug Vin 00 Form: INJ, Dosing Weight 92.273, kg, PRN, PRN Blood Glucose Results, Start date: 07/24/16 2:40:00 HUMAN RESOURCES SUPERVISOR, Duration: 30 day, Stop date: 08/23/16 2:39:00 HUMAN RESOURCES SUPERVISOR Docusate No Notes: Memoria 2-03 (Same as: l 07:20: Colace) (Do Not Crush) Ondansetron No Notes: Mendoza janice 2-03 (Same as: l 07:20: Zofran) [place] 00 MEDICATION WASTE Product Size: 4 mg Product Wasted: ___ mg Lasix No Notes: Memoria 2-03 (Same as: l 06:01: Lasix) Vin 00 MEDICATION WASTE Product Size: 40 mg Product Wasted: ___ mg Aspirin No Notes: Memoria 2-03 Take with l 05:48: food. Vin 00 Prednisone No Notes: Memor ia 2-03 Take with l 05:02: food. Vin 00 Albuterol No Notes: Memori a 0.833 MG/ML 07-24 (Same as: l / 04:09: Duoneb) Vin Ipratropium 00 [place] 0.167 MG/ML Inhalant Solution [DuoNeb] Furosemide 2015-06 [...] INHALATION l 0.09 16:34: , PRN, PRN [place] MG/ACTUAT 00 as needed Metered for Dose [...] tab, PO, l tablet 16:34: Daily, # [place] 00 30 tab, 0 Refill(s) Lasix 2015-06 No Notes: Memoria 2-26 (Same as: l 15:00: Lasix) Vin 00 May cause GI upset. Give with food or milk. Magnesium 2015-06 No Notes: Memori a Oxide 2-24 (Same as: l 13:36: Mag-Ox Vin 00 400) Magnesium oxide 618nd=010j g elemental magnesium Dose=____m g magnesium oxide (___mg elemental magnesium) Magnesium 2015-06 No Notes: Memori a Oxide 2-24 (Same as: l 09:47: Mag-Ox Vin 00 400) Magnesium oxide 502lw=018r g elemental magnesium Dose=____m g magnesium oxide [...] Memoria 2-24 (Same as: l 00:00: Norvasc) [place] 00 Insulin 2015-06 No Notes: Memoria Glargine [...] tab, PO, l tablet 15:35: Daily, 0 [place] 00 Refill(s) pravastatin 2015-06 No 40 mg = 1 M emoria 40 mg oral 2-23 tab, PO, l tablet 15:35: Daily, 0 [place] 00 Refill(s) Sertraline 2015-06 Yes 200 mg = 2 M emoria 100 MG Oral 2-23 tab, PO, l Tablet 15:27: Daily, 0 [place] [Zoloft] 00 Refill(s) pantoprazol 2015-06 Yes 40 mg = 1 M emoria e 40 MG 2-23 tab, PO, l Enteric 15:27: Daily, 0 Jake n Coated 00 Refill(s) Tablet [Protonix] gabapentin 2015-06 Yes 1 CAP PO Mem oria 300 MG Oral 2-23 BID AND 1 l Capsule 15:27: CAP AT [place] 00 BEDTIME, 0 Refill(s) Insulin, 2015-06 No [...] as: l Capsule 15:00: Neurontin) Herm naeem Divalproex 2015-06 No Notes: Memor ia Sodium 500 2-22 (Same as: l MG Enteric 15:00: Depakote Her braden Coated 00 ER) Once Tablet daily [Depakote] dosing; indicated for migraines. Divalproe x sodium extended-r elease tab. Do not chew or crush. "Do Not Crush" Aspirin 2015-06 No 81 mg, Memoria 2-22 Route: PO, l 15:00: Drug form: Vin ECTAB, Daily, Dosing Weight 86.364, kg, Start date: 06/11/16 9:00:00 H[employer] SUPERVISOR, Duration: 30 day, Stop date: 07/10/16 9:00:00 HUMAN [employer]OURCES SUPERVISOR Insulin 2015-06 No Notes: Memoria Glargine 2-22 Same as: l 100 UNT/ML 15:00: Lantus) Do H ermann Injectable 00 not hold Solution insulin [Lantus] without contacting prescriber WASTE: F/P - Black; E - Municipal Trash Bin Zoloft 2015-06 No Notes: Memoria 2-22 (Same as: l 15:00: Zoloft) Vin Insulin, 2015-06 No Notes: Memoria Aspart, 2-22 Roll in l Human 12:55: palms of Vin hands gently; Do not shake vigorously . [...] -22 (Same as: l / 03:00: Duoneb) Vin Ipratropium 00 [place] 0.167 MG/ML Inhalant Solution [DuoNeb] gabapentin 2015-06 No 300 mg, Mendoza janice 300 MG Oral -22 Route: PO, l Capsule 03:00: Drug form: Herm naeem CAP, Q12H, Dosing Weight 86.364, kg, (CrCl 30 - 59 ml/min), Start date: 06/10/16 21:00:00 H[employer]OURCES SUPERVISOR, Duration: 30 day, Stop date: 07/10/16 9:00:00 HUMAN RESOURCES SUPERVISOR divalproex 2015-06 No Notes: Memor ia sodium [...] Syringe 2-22 25 mL, l 00:50: Route: [place] 00 IVP, Drug Form: INJ, Dosing Weight 86.364, kg, PRN, PRN Blood Glucose Results, Start date: 06/10/16 18:50:00 HUMAN RESOURCES SUPERVISOR, Duration: 30 day, Stop date: 07/10/16 18:49:00 HUMAN RESOURCES SUPERVISOR Glucagon 2015-06 No 1 mg, Memoria 2-22 Route: IM, l 00:50: Drug form: Vin 00 PDR/INJ, PRN, Dosing Weight 86.364, kg, PRN Blood Glucose Results, Start date: 06/10/16 18:50:00 HUMAN RESOURCES SUPERVISOR, Duration: 30 day, Stop date: 07/10/16 18:49:00 HUMAN RESOURCES SUPERVISOR Hydralazine 2015-06 No Notes: Mendoza janice 2-22 [...] Weight 86.364, kg, Start date: 06/10/16 18:06:00 HUMAN RESOURCES SUPERVISOR, Stop date: 06/10/16 18:06:00 HUMAN RESOURCES SUPERVISOR hydrOXYzine 2015-06 No Notes: Mendoza janice pamoate 08-11 (Same as: l 23:00: Vistaril) Furosemide 2015-06 No 60 mg, Memor ia 08-11 Route: l 22:32: IVP, Drug form: INJ, ONCE, Dosing Weight 86.364, kg, Start date: 06/10/16 16:32:00 HUMAN RESOURCES SUPERVISOR, Stop date: 06/10/16 16:32:00 HUMAN RESOURCES SUPERVISOR Lasix 2015-06 No Notes: Memoria - (Same as: l 17:22: Lasix) MEDICATION WASTE Product Size: 40 mg Product Wasted: _0__ mg Albuterol 2015-06 No Notes: Memori a 0.833 MG/ML 08-11 (Same as: l / 17:22: Duoneb) Ipratropium 00 [place] 0.167 MG/ML Inhalant Solution [DuoNeb] Promethazin Yes 25 mg = 1 M emoria e 06-26 supp, IL, l Hydrochlori 14:45: Q6H, Jake gonzalez de [...] date: 04/14/13 23:10:00 Sodium 2012-06 No Matthew Gayr 1,000 mL, M emoria Chloride 0-26 Marry Rate: 125 l 0.9% IV 04:10: ml/hr, [place] 1,000 mL 00 Infuse over: 8 hr, [...] Marx Rate: 500 l 0.9% 23:45: ml/hr, [place] (Bolus) IV 00 Infuse 500 mL over: [...] 9-24 Marx Rate: l 0.9% 22:19: 1,000 [place] (Bolus) IV 00 ml/hr, 500 mL Infuse [...] insulin No Blake 10 unit, Mem oria isophane-WARD ATTENDANT 6-11 Deangelo 0.1 mL, l H 02:00: Route: Vin SUB-Q, Drug form: INJ, Bedtime, Start date: 11/29/11 21:00:00, Duration: 30 day, Stop date: 12/28/11 21:00:00 Insulin No Blake 8 unit, Mendoza janice regular 6-11 Deangelo 0.08 mL, l 02:00: Route: Vin SUB-Q, Drug form: SOLN, Bedtime, Start date: [...] 2011- No Blake 14 unit, Mem oria isophane-WARD ATTENDANT 6-10 Deangelo 0.14 mL, l H 14:00: Brisa Route: Vin SUB-Q, Drug form: INJ, Daily, Start date: 11/29/11 9:00:00, Duration: 30 day, Stop date: 12/28/11 9:00:00 Insulin 2011-0 No Blake 10 unit, Mem oria regular 6-10 Deangelo 0.1 mL, l 14:00: Brisa Route: Vin SUB-Q, Drug form: SOLN, Daily, Start date: 11/29/11 9:00:00, Duration: 30 day, Stop date: 12/28/11 9:00:00 Effexor XR 2011- No Blake 75 mg, 1 Memoria 6-10 [...] 6-10 Deangelo 0.1 mL, l 06:30: Route: [place] 00 SUB-Q, Drug form: SOLN, TID-Before Meals, [...] 11/29/11 1:30:00, Duration: 30 day, Stop date: 07/10/12 1:29:00 normal 2011-0 No Blake 1,000 mL, [...] mL, Route: l 04:01: Brown IVP, Drug Vin 00 form: INJ, ONCE, Priority: STAT, Start date: 11/28/11 23:01:00, Stop date: 11/28/11 23:01:00 Zofran No Nikki 4 mg, 2 Mendoza janice 6-10 Sarah mL, Route: l 02:31: Brown IVP, Drug [place] 00 form: INJ, ONCE, Priority: STAT, Start date: 11/28/11 21:31:00, Stop date: 11/28/11 21:31:00 NS (Bolus) No Arif Domenico 1,000 mL, Memoria IV 1,000 mL 11-27 Rate: l 22:48: 1,000 [place] 00 ml/hr, Infuse over: 1 hr, Route: [...] Hughes-Jason 8 unit, M emoria 100 3-30 [place] SUB-Q, l units/mL 17:47: Dawson Q12H, 2 He rmann injectable 42 Pu vial, solution Substituti on Allowed, SOLN Novolin N Yes Hughes-Jason 10 unit, Memoria 100 3-30 [place] SUB-Q, l units/mL 17:46: Dawson Bedtime, H ermann subcutaneou 27 Pu 10 ml, s injection Substituti on Allowed, SUSP Novolin N Yes Hughes-Jason 14 unit, Memoria 100 3-30 [place] SUB-Q, l units/mL 17:44: Eunice QAM, 1 Her braden subcutaneou 37 Pu vial, s injection Substituti on Allowed, SUSP magnesium No Hughes-Jason 400 mg, 1 Memoria oxide 3-30 [place] tab, l 14:55: Dawson Route: PO, Her braden 00 Pu Drug form: TAB, ONCE, Priority: STAT, Start date: 09/18/11 9:55:00, Stop date: 09/18/11 9:55:00 Insulin No Hughes-Jason 8 unit, Mem oria regular 3-30 [place] 0.08 mL, l 14:22: Eunice Route: [place] 00 Pu SUB-Q, Drug form: SOLN, ONCE, Priority: STAT, Start date: 09/18/11 9:22:00, Stop date: 09/18/11 9:22:00 Lactated 2011- No Hughes-Jason 1,000 mL, Memoria Ringers 3-30 [place] Rate: l (Bolus) IV 14:16: Eunice 1,000 He rmann 1,000 mL 00 Pu ml/hr, Infuse over: 1 hr, Route: IV, Total Volume: 1,000, Bolus Dose, Priority: STAT, Start date: 09/18/11 9:16:00, Duration: 1 doses or times, Stop date: 09/18/11 10:15:00 Sodium No Hughes-Jason 1,000 mL, Me moria Chloride 3-30 [place] Rate: l 0.9% 14:06: Eunice 1,000 [place] (Bolus) IV 00 Pu ml/hr, 1000 mL Infuse over: 1 hr, Route: IV, kg, Total Volume: 1,000, Bolus Dose, Priority: STAT, Start date: 09/18/11 9:06:00, Duration: 1 doses or times, Stop date: 09/18/11 10:05:00 sulfamethox 2011- Yes Substituti Memoria azole 3-30 on Allowed l 14:04: [place] 58 Sodium No Hughes-Jason 1,000 mL, Me moria Chloride 3-30 [place] Rate: l 0.9% 13:56: Dawson 1,000 [place] (Bolus) IV 00 Pu ml/hr, 1000 mL [...] 3-21 Amelia cap, PO, l capsule 18:47: [place] BID, 60 Her braden 19 cap, Substituti on Allowed, CAP clindamycin Yes Luna 300 mg, 2 Memoria 150 mg oral 3-21 Amelia cap, PO, l capsule 18:46: Zeeshan Q8H, 30 Her braden 55 cap, Substituti on Allowed, CAP [place] Yes Luna 1 tab, PO, Memoria 10/325 oral 3-21 Amelia Q4H, PRN, l tablet 18:46: [place] 30 tab, Herm naeem 36 Pain, Substituti on Allowed, Maintenanc e, TAB [place] No Hollie Donavan 1 tab, Mendoza janice [...] 3-19 Omidvar tab, l 15:30: Route: PO, [place] Drug form: TAB, Daily, Start date: 09/07/11 10:30:00, Duration: 30 day, Stop date: 10/07/11 9:00:00 flumazenil 2011- No Gayle 0.2 mg, 2 Memoria 3-19 Josefina mL, Route: l 14:19: [place] IVP, Drug Jake n 00 form: INJ, PRN, PRN Benzodiaze pine Reversal, Initial dose, Start date: 09/07/11 9:19:00, Duration: 1 day, Stop date: 09/08/11 9:18:00 naloxone No Gayle 0.04 mg, Me moria 3-19 Josefina 0.1 mL, l 14:19: [place] Route: Vin IVP, Drug form: INJ, Q2MIN, [...] ne 3- Josefina 0.25 mL, l 14:19: Gavin Route: [place] IVP, Drug form: INJ, Q5Min, PRN Pain [...] [place] 1,000 mL, Me moria Ringers IV 3-19 Omid[place] Rate: 125 l 1,000 mL 14:06: [...] 30 day, Stop date: 10/05/11 9:00:00 potassium 2011-0 No [place] 40 mEq, 2 M emoria chloride 3-17 Omidvar tab, l 14:11: Route: PO, [place] 00 Drug form: ERTAB, ONCE, Start date: 09/05/11 9:11:00, Stop date: 09/05/11 9:11:00 Dulcolax 2012-0 No Charbel A 10 mg, 2 M emoria Laxative 3-17 Wong tab, l 04:00: Route: PO, [place] 00 Drug form: ECTAB, Daily, PRN Constipati [...] Duration: 30 day, Stop date: 10/04/11 18:10:00 [place] 2011-0 No Mahammad 1 tab, Memori a [...] Kavon mL, Route: l 14:50: IVP, Drug [place] 00 form: INJ, ONCE, PRN Nausea & [...] 3-16 Kavon 0.1 mL, l 14:50: Route: Vin 00 IVP, Drug form: INJ, Q2MIN, PRN Narcotic Reversal, Start date: 09/04/11 9:50:00, Duration: 30 day, Stop date: 10/04/11 9:49:00 [place] No Bismark 1 tab, Memoria 10/325 oral -16 Omidvar Route: PO, l tablet 14:49: Drug Form: Nidia nn 00 TAB, Q4H, PRN Pain, Start date: 09/04/11 9:49:00, Stop date: 10/04/11 9:48:00 labetalol No Gregory F 5 mg, Mendoza janice 3-16 [place] Route: IV, l 14:40: ONCE, [place] 00 Start date: 09/04/11 9:40:00, Stop date: 09/04/11 9:40:00 ondansetron No Hollie 4 mg, 2 Me moria 3-16 Beck mL, Route: l 13:37: [place] IVP, Drug Nidia nn 00 form: INJ, ONCE, PRN Nausea & Vomiting, Start date: 09/04/11 8:37:00 naloxone No Hollie 0.04 mg, Mendoza janice 3-16 Beck 0.1 mL, l 13:37: Hayden Route: [place] 00 IVP, Drug form: INJ, Q2MIN, PRN [...] 3-16 Kavon 0.25 mL, l 13:37: Route: [place] 00 IVP, Drug form: INJ, Q5Min, PRN [...] date: 09/03/11 8:39:00, Stop date: 09/03/11 8:39:00 [place] 5/325 2011-0 No Rosalino 1 tab, M emoria oral tablet 3-15 Kavon Route: PO, l 05:00: Drug Form: [place] 00 TAB, Q4H, Start date: 09/03/11 0:00:00, Duration: 30 day, Stop date: 10/02/11 20:00:00 Geodon 2011-0 No Eber L 120 mg, 3 Memoria 3-15 Anabelle cap, l 02:00: Route: PO, Vin 00 Drug form: CAP, Bedtime, Start date: 09/02/11 [...] Duration: 30 day, Stop date: 10/02/11 9:00:00 [place] 5/325 2011- No Rosalino 1 tab, M emoria oral tablet 3-14 Kavon Route: PO, l 16:25: Drug Form: [place] 00 TAB, Q4H, PRN Pain, Start date: [...] 3-14 Anabelle Route: l 14:00: IVPB, Drug [place] 00 form: INJ, [id number], Start date: 09/02/11 9:00:00, Duration: 30 day, Stop date: 10/01/11 21:00:00 clindamycin 2011-0 No Eber L 600 mg, 4 Memoria (SCIP) 3-14 Anabelle mL, Route: l 10:00: IVPB, [place] 00 [id number], Start date: 09/02/11 5:00:00, Duration: 3 doses or times, Stop date: 09/02/11 21:00:00 clindamycin 2011-0 No Yury 600 mg, 4 Memoria (SCIP) 3-14 [place] mL, Route: l 04:00: [place] IVPB, [place] 00 [id number], Start date: 09/01/11 23:00:00, Duration: 3 doses or times, Stop date: 09/02/11 15:00:00 insulin 2011-0 No [place] 15 unit, Mendoza janice isophane-WARD ATTENDANT 3-14 Omidvar 0.15 mL, l H 02:00: Route: [place] 00 SUB-Q, Drug form: INJ, Q12H, Start date: 09/01/11 21:00:00, Stop date: 10/01/11 9:00:00 labetalol 2011- No Mariaelena-Corea 5 mg, Me moria 3-14 Barbra Route: l 01:07: Feliciano IVP, [place] 00 Q5Min, PRN Elevated BP, Start date: 09/01/11 20:07:00, Duration: 5 doses or times, Stop date: Limited # of times hydrALAZINE No Mariaelena-Corea 5 mg, Memoria 3-14 Barbra Route: l 01:07: Feliciano IVP, [place] 00 Q5Min, PRN Elevated BP, Start date: 09/01/11 20:07:00, Duration: 4 doses or times, Stop date: Limited # of times hydromorpho No Mariaelena-Corea 0.5 mg, Memoria ne 3-14 Barbra Route: l 01:07: Feliciano IVP, [place] 00 Q5Min, PRN Pain Score 4-6, Start date: 09/01/11 20:07:00, Duration: 5 doses or times, Stop date: Limited # of times naloxone No Mariaelena-Corea 0.04 mg, Memoria 3-14 Barbra Route: l 01:07: Feliciano IVP, [place] 00 Q2MIN, PRN Narcotic Reversal, Start date: 09/01/11 20:07:00, Duration: 8 doses or times, Stop date: Limited # of times flumazenil No Mariaelena-Corea 0.2 mg, Memoria 3-14 Barbra Route: l 01:07: Feliciano IVP, PRN, [place] 00 PRN Benzodiaze pine Reversal, Initial dose, Start date: 09/01/11 20:07:00, Duration: 30 day, Stop date: 10/01/11 20:06:00 ondansetron No Mariaelena-Corea 4 mg, Memoria 3-14 Barbra Route: l 01:07: Feliciano IVP, ONCE, [place] PRN Nausea & Vomiting, Start date: 09/01/11 20:07:00 vancomycin No Mele 1 gm, Mem oria 3-14 Gauvain Route: l 01:00: IVPB, Drug form: INJ, [id number], Start date: 09/01/11 20:00:00, Duration: 30 day, Stop date: 10/01/11 8:00:00 Lactated 2011-0 No Charbel A 1,000 mL, Memoria Ringers IV 3-14 Wong Rate: 125 l 1,000 mL 00:55: ml/hr, [place] 00 Infuse over: 8 hr, Route: IV, Dosing Weight 68.2 kg, Total Volume: 1,000, Start date: 09/01/11 19:55:00, Duration: 30 day, Stop date: 10/01/11 19:54:00 vancomycin No Missael 1 gm, Memor ia 3-14 Movva Route: l 00:00: IVPB, Drug form: INJ, [id number], Start date: 09/01/11 19:00:00, Duration: 30 day, Stop date: 10/01/11 7:00:00 insulin 2011-0 No Missael 6 unit, Memori a aspart 3-13 Movva 0.06 mL, l 23:23: Route: [place] 00 SUB-Q, Drug form: SOLN, TID-Before Meals, PRN Blood Glucose Results, Start date: 09/01/11 18:23:00, Duration: 30 day, Stop date: 10/01/11 18:22:00 glucagon 2011-0 No Missael 1 mg, Memoria 3-13 Movva Route: IM, l 23:23: Drug form: [place] PDR/INJ, PRN, PRN Blood Glucose Results, Start [...] mL, Me moria Ringers IV 3-13 Manuel [place] Rate: 100 l 1,000 mL 19:03: ml/hr, [place] Infuse over: 10 hr, Route: IV, Dosing [...] Madden 0.08 mL, l 15:28: Gurinder Route: [place] 00 SUB-Q, Drug form: SOLN, ONCE, Priority: STAT, Start date: 09/01/11 10:28:00, Stop date: 09/01/11 10:28:00 Sodium 2011-0 No [place] 1,000 mL, Memori a Chloride 3-13 [place] Rate: l 0.9% 14:53: Gurinder 1,000 [place] (Bolus) IV 00 ml/hr, 1,000 mL Infuse [...] L 1,000 mL, M emoria Chloride 3-13 [place] Rate: l 0.9% 10:41: 1,000 Vin (Bolus) IV 00 ml/hr, 1000 mL Infuse over: 1 hr, Route: IV, Dosing Weight 68.182 kg, Total Volume: 1,000, Bolus Dose, Priority: STAT, Start date: 09/01/11 5:41:00, Duration: 1 doses or times, Stop date: 09/01/11 6:40:00 ondansetron 2011-0 No Bee L 4 mg, Memoria 08-31 [place] Route: l 09:06: IVP, Drug Vin 00 form: INJ, ONCE, Priority: STAT, Start date: 09/01/11 4:06:00, Stop date: 09/01/11 4:06:00 morphine 2011-0 No Bee L 4 mg, Mem oria Sulfate 08-31 [place] Route: l 09:06: IVP, ONCE, [place] 00 Priority: STAT, Start date: 09/01/11 4:06:00, Stop date: 09/01/11 4:06:00 Sodium 2011-0 No Bee L 1,000 mL, M emoria Chloride 08-31 [place] Rate: l 0.9% 08:42: 1,000 [place] (Bolus) IV 00 ml/hr, 1000 mL Infuse over: 1 hr, Route: IV, Dosing Weight 68.182 kg, Total Volume: 1,000, [place]us Dose, Priority: STAT, Start date: 09/01/11 3:42:00, Duration: 1 doses or times, Stop date: 09/01/11 4:41:00 Insulin 2011-0 No Bee L 8 unit, Me moria regular 08-31 [place] 0.08 mL, l 08:30: Route: [place] 00 IVP, Drug form: SOLN, ONCE, Priority: STAT, Start date: 09/01/11 3:30:00, Stop date: 09/01/11 3:30:00 Sodium 2011-0 No Bee L 1,000 mL, M emoria Chloride - [place] Rate: l 0.9% 07:29: 1,000 [place] (Bolus) IV 00 ml/hr, 1,000 mL Infuse over: 1 hr, Route: IV, Dosing Weight 68.182 kg, Total Volume: 1,000, [place]us Dose, Priority: STAT, Start date: 09/01/11 2:29:00, Duration: 1 doses or times, Stop date: 09/01/11 3:28:00 potassium No Velásquez Noam 40 mEq, 2 Memoria chloride 3-04 Akmal tab, l 15:00: Route: PO, [place] 00 Drug form: ERTAB, BID, Start date: [...] Akmal SUB-Q, l human 14:40: TID, 30 [place] recombinant 10 vial, 3, 100 3, units/mL Substituti injectable on solution Allowed, before breakfast lunch and dinner, [facility] breakfast lunch and dinner potassium No Velásquez Noam 20 mEq, Memoria chloride 3-04 Akmal 100 mL, l 14:00: Route: Vin 00 IVPB, Drug form: INJ, Q2H, Start date: 08/23/11 8:00:00, Duration: 2 doses or times, Stop date: 08/23/11 10:00:00 calcium 2011-0 No Velásquez Noam 1 gm, Mem oria chloride 3-04 Akmal Route: l 13:28: IVPB, [place] 00 ONCE, Priority: STAT, Start date: 08/23/11 7:28:00, Stop date: 08/23/11 7:28:00 potassium No Velásquez Noam 40 mEq, Memoria chloride 3-04 Akmal Route: IV, l 12:29: ONCE, Vin 00 Start date: 08/23/11 6:29:00, Stop date: 08/23/11 6:29:00 potassium 2011-0 No Velásquez Noam 60 mEq, 3 Memoria chloride 20 3-04 Akmal tab, l mEq oral 12:27: Route: PO, Her braden tablet, 00 Drug form: extended ERTAB, release ONCE, Start date: 08/23/11 6:27:00, Stop date: 08/23/11 6:27:00 magnesium 2011-0 No Velásquez Noam 2 gm, 50 Memoria sulfate 3-04 Akmal mL, Route: l 12:26: IVPB, Drug Vin form: INJ, ONCE, Total dose = 2 [...] Rodriguez 10 mL, l 16:25: Ahmed Route: [place] 00 IVPB, ONCE, Start date: 08/22/11 10:25:00, [...] Akmal mL, Route: l 13:26: IVPB, Drug [place] form: INJ, ONCE, Total dose = 2 [...] mL, Route: l 17:15: Ahmed IVP, Drug [place] form: INJ, Q8H, PRN Nausea, Start date: 08/20/11 11:15:00, Duration: 30 day, Stop date: 09/19/11 11:14:00 insulin 2011-0 No Yury 10 unit, Mem oria isophane-WARD ATTENDANT 3- G[place] Route: l H 16:00: Rivero [...] tab, PO, l tablet 15:35: BID, 60 [place] 25 tab, Substituti on Allowed, TAB Geodon 60 2011-0 Yes 120 mg, 2 Mem oria mg oral 3- cap, PO, l capsule 15:35: Bedtime, Jake n 12 60 cap, Substituti on Allowed, CAP insulin No Yury 10 unit, Mem oria isophane-WARD ATTENDANT 3- [place] Route: l H 15:00: Rivero SUB-Q, Nidia nn 00 Q12H, Start date: 08/20/11 9:00:00, Duration: 30 day, Stop date: 09/18/11 21:00:00 Geodon No Yury 60 mg, 3 Mendoza janice [...] 30 day, Stop date: 09/18/11 9:00:00 potassium No Yury 15 mmol, 5 Memoria phosphate 3- [place] mL, Route: l 14:30: Rivero IV, ONCE, He rmann 00 Start date: 08/20/11 8:30:00, Stop date: 08/20/11 8:30:00 potassium No Yury 20 mEq, Me moria chloride [...] 30 day, Stop date: 09/19/11 7:46:00 Insulin No Yury 6 unit, Mendoza janice regular 08-19 G[place] 0.06 mL, l 09:38: Rivero Route: Nidia nn SUB-Q, Drug form: SOLN, ONCE, Start date: 08/20/11 3:38:00, Stop date: 08/20/11 3:38:00 Insulin No Velásquez Noam 10 unit, Memoria regular 08-19 Akmal SUB-Q, l 09:28: BID, Vin 23 Substituti on Allowed insulin 2011- No 10 unit, Memori a isophane-WARD ATTENDANT - SUB-Q, l H 09:26: BID, Vin 18 Substituti on Allowed NS 1,000 mL No Velásquez Noam 1,000 mL, Memoria 08-19 Akmal Rate: 150 l 09:06: ml/hr, Vin 00 Infuse over: 6.7 hr, Route: IV, Total Volume: 1,000, Start date: 08/20/11 3:06:00, Duration: 30 day, Stop date: 09/19/11 3:05:00 insulin No Yury 3 unit, Mendoza janice aspart 08-19 G[place] 0.03 mL, l 09:06: Rivero Route: Nidia nn SUB-Q, Drug form: SOLN, Bedtime, PRN Blood Glucose Results, Start date: 08/20/11 3:06:00, Duration: 30 day, Stop date: 09/19/11 3:05:00 enoxaparin No Yury 40 mg, 0.4 Memoria - [place] mL, Route: l 09:00: Rivero SUB-Q, Nidia nn Drug form: INJ, Daily, Priority: Routine, Start date: 08/20/11 3:00:00, Duration: 30 day, Stop date: 09/18/11 9:00:00 insulin 2011- No Yury 18 unit, Mem oria isophane-WARD ATTENDANT 3- Gato 0.18 mL, l H 08:58: Rivero Route: Nidia nn SUB-Q, Drug form: INJ, Q12H, Start date: [...] 25 gm, 50 M emoria 50% Syringe 01 [place] mL, Route: l 08:48: Rivero IVP, [...] 25 gm, 50 M emoria 50% Syringe 01 G[place] ml, Route: l 08:46: Rivero IVP, Drug He rmann Form: INJ, PRN, PRN Blood Glucose Results, Start date: 08/20/11 2:46:00, Duration: 30 day, Stop date: 09/19/11 3:45:00 ondansetron No Hughes-Jason 4 mg, M emoria 08-19 [place] Route: l 07:42: [place] IVP, Drug Herm naeem 00 Pu form: INJ, ONCE, Priority: STAT, Start date: 08/20/11 1:42:00, Stop date: 08/20/11 1:42:00 GI cocktail 2011- No Hughes-Jason 30 ml, Memoria 08-19 [place] Route: PO, l 05:12: Dawson Drug Form: Her braden 00 Pu SUSP, ONCE, STAT, Start date: 08/19/11 23:12:00, Stop date: 08/19/11 23:12:00 ondansetron No Hughes-Jason 4 mg, M emoria 08-19 [place] Route: PO, l 05:10: Dawson Drug form: Her braden 00 Pu TABDIS, ONCE, Priority: STAT, Start date: 08/19/11 23:10:00, Stop date: 08/19/11 23:10:00 Lactated No Hughes-Jason 1,000 mL, Memoria Ringers 08-19 [place] Rate: l (Bolus) IV 05:10: Dawson 1,000 He rmann 1000 mL 00 Pu ml/hr, Infuse over: 1 hr, Route: IV, Total Volume: 1,000, Bolus Dose, Priority: STAT, Start date: 08/19/11 23:10:00, Duration: 1 doses or times, Stop date: 08/20/11 0:09:00 Insulin No Hughes-Jason 7 unit, Mem oria regular 08-19 [place] 0.07 mL, l 04:15: Dawson Route: Vin 00 Pu SUB-Q, Drug form: [...] PO, l capsule, 23:22: Rivero Daily, 30 [place] extended 24 cap, release Substituti on Allowed [...] Wong Route: IV, l 21:57: Pooja ONCE, [place] 00 Start date: 08/19/11 15:57:00, Stop date: 08/19/11 15:57:00 Lactated 2011-0 No William 1,000 mL, Me moria Ringers Wong Rate: l (Bolus) IV 21:12: Pooja 1,000 Herm naeem 1000 mL 00 ml/hr, Infuse over: 1 hr, Route: IV, Total Volume: 1,000, Bolus Dose, Priority: STAT, Start date: 08/19/11 15:12:00, Duration: 1 doses or times, Stop date: 08/19/11 16:11:00 Vital Signs Vital Name Observation Time Observation Value Comments Source Systolic (mm Hg) 2016-07-30 14:00:00 Mendoza rial Vin Diastolic (mm Hg) 2016-07-30 14:00:00 Mem orial [place] Respitory Rate 2016-07-30 14:00:00 Memori al [place] Heart Rate 2016-07-30 14:00:00 Memorial Vin Temperature Oral (F) 2016-07-30 14:00:00 97.4 F [facility] [place] Systolic (mm Hg) 2016-07-30 10:45:00 Mendoza rial Vin Diastolic (mm Hg) 2016-07-30 10:45:00 Mem orial Vin Heart Rate 2016-07-30 10:45:00 [facility] [place] Temperature Oral (F) 2016-07-30 10:45:00 97.2 F Memorial Vin Respitory Rate 2016-07-30 10:45:00 Memori al Vin Heart Rate 2016-07-30 06:35:00 [facility] [place] Temperature Oral (F) 2016-07-30 06:35:00 97.0 F [facility] [place] Respitory Rate 2016-07-30 06:35:00 Memori al [place] Systolic (mm Hg) 2016-07-30 06:35:00 Mendoza rial Vin Diastolic (mm Hg) 2016-07-30 06:35:00 Mem orial Vin Weight 2016-07-24 02:13:00 Memorial Vin BMI Calculated 2016-07-24 02:13:00 Memori al Vin Height 2016-07-24 02:13:00 160.02 cm Memorial Vin Respitory Rate 2016-06-15 15:00:00 Memori al Vin Systolic (mm Hg) 2016-06-15 15:00:00 Mendoza rial [place] Diastolic (mm Hg) 2016-06-15 15:00:00 Mem orial [place] Respitory Rate 2016-06-15 14:00:00 Memori al [place] Systolic (mm Hg) 2016-06-15 14:00:00 Mendoza rial Vin Diastolic (mm Hg) 2016-06-15 14:00:00 Mem orial Vin Respitory Rate 2016-06-15 13:29:00 Memori al Vin Systolic (mm Hg) 2016-06-15 13:29:00 Mendoza rial Vin Diastolic (mm Hg) 2016-06-15 13:29:00 Mem orial Vin Temperature Oral (F) 2016-06-14 10:56:00 97.1 F Memorial Vin Temperature Oral (F) 2016-06-14 06:55:00 97.1 F Memorial Vin Temperature Oral (F) 2016-06-12 10:00:00 96.8 F [facility] [place] Weight 2016-06-11 04:25:00 Memorial Vin Height 2016-06-11 04:25:00 160.02 cm [facility] [place] BMI Calculated 2016-06-11 04:25:00 Memori al [place] Heart Rate 2016-06-11 02:04:00 [facility] [place] Heart Rate 2016-06-11 00:00:00 [facility] [place] Heart Rate 2016-06-10 20:30:00 Memorial Vin Weight 2016-06-10 16:04:00 Memorial Vin BMI Calculated 2016-06-10 16:04:00 Memori al [place] Height 2016-06-10 16:04:00 160.02 cm [facility] [place] Temperature Oral (F) 2014-06-26 15:12:00 98.0 F [facility] Vin Systolic (mm Hg) 2014-06-26 15:12:00 Mendoza rial Vin Heart Rate 2014-06-26 15:12:00 Memorial Vin Diastolic (mm Hg) 2014-06-26 15:12:00 Mem orial Vin Respitory Rate 2014-06-26 15:12:00 Memori al [place] Systolic (mm Hg) 2014-06-26 13:53:00 Mendoza rial [place] Diastolic (mm Hg) 2014-06-26 13:53:00 Mem orial Vin Respitory Rate 2014-06-26 13:53:00 Memori al Vin Temperature Oral (F) 2014-06-26 13:53:00 98.0 F Memorial Vin Temperature Oral (F) 2014-06-26 12:37:00 98.2 F Memorial Vin Respitory Rate 2014-06-26 12:37:00 Memori al Vin Systolic (mm Hg) 2014-06-26 12:37:00 Mendoza rial [place] Diastolic (mm Hg) 2014-06-26 12:37:00 Mem orial [place] Heart Rate 2014-06-26 09:21:00 Memorial Vin Heart Rate 2014-06-26 06:08:00 [facility] [place] Height 2014-06-26 05:35:00 154.94 cm Memorial Vin Weight 2014-06-26 05:35:00 Memorial Vin BMI Calculated 2014-06-26 05:35:00 Memori al [place] Respitory Rate 2013-04-15 06:10:00 Memori al Vin Diastolic (mm Hg) 2013-04-15 06:10:00 Mem orial [place] Heart Rate 2013-04-15 06:10:00 Memorial Vin Systolic (mm Hg) 2013-04-15 06:10:00 Mendoza rial [place] Temperature Oral (F) 2013-04-15 06:10:00 98.7 F [facility] [place] Respitory Rate 2013-04-15 05:37:00 Memori al [place] Diastolic (mm Hg) 2013-04-15 05:37:00 Mem orial [place] Systolic (mm Hg) 2013-04-15 05:37:00 Mendoza rial [place] Temperature Oral (F) 2013-04-15 05:37:00 98.2 F Memorial Vin Heart Rate 2013-04-15 05:37:00 Memorial Vin Height 2013-04-15 02:06:00 160.02 cm Memorial Vin Weight 2013-04-15 02:06:00 Memorial Vin Temperature Oral (F) 2013-04-15 02:06:00 98.6 F Memorial Vin Respitory Rate 2013-04-15 02:06:00 Memori al Vin Heart Rate 2013-04-15 02:06:00 [facility] [place] Diastolic (mm Hg) 2013-04-15 02:06:00 Mem orial [place] Systolic (mm Hg) 2013-04-15 02:06:00 Mendoza rial [place] Weight 2012-03-14 21:33:00 Memorial Vin Systolic (mm Hg) 2011-12-01 00:33:00 Mendoza rial Vin Respitory Rate 2011-12-01 00:33:00 Memori al Vin Heart Rate 2011-12-01 00:33:00 [facility] [place] Diastolic (mm Hg) 2011-12-01 00:33:00 Mem orial Vin Temperature Oral (F) 2011-12-01 00:33:00 99.6 F Memorial Vin Diastolic (mm Hg) 2011-11-30 21:00:00 Mem orial [place] Heart Rate 2011-11-30 21:00:00 [facility] [place] Respitory Rate 2011-11-30 21:00:00 Memori al [place] Systolic (mm Hg) 2011-11-30 21:00:00 Mendoza rial [place] Temperature Oral (F) 2011-11-30 21:00:00 99.8 F [facility] [place] Respitory Rate 2011-11-30 16:30:00 Memori al [place] Systolic (mm Hg) 2011-11-30 16:30:00 Mendoza rial Vin Diastolic (mm Hg) 2011-11-30 16:30:00 Mem orial Vin Heart Rate 2011-11-30 16:30:00 Memorial Vin Temperature Oral (F) 2011-11-30 16:30:00 99.8 F [facility] Vin Weight 2011-11-29 11:40:00 [facility] [place] Height 2011-11-29 11:40:00 157.48 cm [facility] [place] Weight 2011-11-28 17:16:00 [facility] [place] Weight 2011-09-18 13:30:00 [facility] Vin Height 2011-09-18 13:30:00 154.94 cm Memorial Vin Heart Rate 2011-09-09 13:31:00 [facility] Vin Systolic (mm Hg) 2011-09-09 13:02:00 Mendoza rial Vin Diastolic (mm Hg) 2011-09-09 13:02:00 Mem orial Vin Respitory Rate 2011-09-09 13:02:00 Memori al Vin Temperature Oral (F) 2011-09-09 13:02:00 97.5 F [facility] [place] Diastolic (mm Hg) 2011-09-09 08:00:00 Mem orial Vin Heart Rate 2011-09-09 08:00:00 [facility] [place] Temperature Oral (F) 2011-09-09 08:00:00 98.6 F [facility] [place] Respitory Rate 2011-09-09 08:00:00 Memori al Vin Systolic (mm Hg) 2011-09-09 08:00:00 Mendoza rial [place] Respitory Rate 2011-09-09 04:55:00 Mem[facility] al [place] Diastolic (mm Hg) 2011-09-09 04:55:00 Mem orial [place] Systolic (mm Hg) 2011-09-09 04:55:00 Mendoza rial [place] Heart Rate 2011-09-09 04:55:00 [facility] [place] Temperature Oral (F) 2011-09-09 00:55:00 98.7 F [facility] [place] Weight 2011-09-01 19:59:00 [facility] [place] Height 2011-09-01 19:59:00 154.94 cm [facility] [place] Height 2011-09-01 07:01:00 154.94 cm [facility] Vin Weight 2011-09-01 07:01:00 [facility] [place] Respitory Rate 2011-08-23 18:00:00 [facility] al [place] Heart Rate 2011-08-23 18:00:00 [facility] [place] Systolic (mm Hg) 2011-08-23 18:00:00 Mendoza rial Vin Diastolic (mm Hg) 2011-08-23 18:00:00 Mem orial Vin Temperature Oral (F) 2011-08-23 18:00:00 97.7 F [facility] [place] Heart Rate 2011-08-23 14:24:00 [facility] [place] Temperature Oral (F) 2011-08-23 14:24:00 98.2 F [facility] Vin Diastolic (mm Hg) 2011-08-23 14:24:00 Mem orial [place] Systolic (mm Hg) 2011-08-23 14:24:00 Mendoza rial Vin Respitory Rate 2011-08-23 14:24:00 Memori al [place] Systolic (mm Hg) 2011-08-23 11:15:00 Mendoza rial Vin Diastolic (mm Hg) 2011-08-23 11:15:00 [facility] orial [place] Temperature Oral (F) 2011-08-23 11:00:00 98.3 F [facility] Vin Heart Rate 2011-08-23 11:00:00 [facility] Vin Respitory Rate 2011-08-22 22:00:00 [facility] al [place] Height 2011-08-20 09:12:00 154.94 cm [facility] Vin Weight 2011-08-20 09:12:00 [facility] [place] Height 2011-08-19 20:28:00 154.94 cm [facility] Vin Weight 2011-08-19 20:28:00 [facility] Vin Procedures Procedure Date / Time Performed Performing Clinician [facility] e Emergency department visit 2013-04-15 05:00:00 [facility] for the evaluation and management of a patient, which requires these 3 kamara components within the constraints imposed by the urgency of the patient's clinical condition and/or mental status: A comprehensive history; A comprehensi Injection or Infusion of 2013-04-15 05:00:00 Mem orial Vin Other Therapeutic or Prophylactic Substance [facility] 2013[facility]; each additional hour (List separately in [...] intravenous push, single or [facility] Encounters Start End Encounter Admission Attending Care Care Encounter Source Date/Time Date/Time Type Type Clinicians Facility Department ID 2020-04-25 2020-04-25 Office JARON Olivares [id number] 10:07:58 10:48:50 Visit Oz Sims [id number] Fausto [id number] [place] [id number] nal 059 [facility] 2020-04-25 2020-04-25 Orders Doctor MARSHALL [id number] 00:00:00 00:00:00 Only Unassigned, MAGDALENO [id number] [place] [facility] [id number] 2020-01-25 2020-01-31 Inpatient 1 Rei Waldron [facility] GPY 12 [id number] [facility] 21:31:00 18:15:00 Rei Waldron 2016-07-23 2016-07-30 Outpatient Yaquelin [facility] [id number] 20:04:00 10:20:00 Luna 10 2016-06-10 2016-06-15 Outpatient Franck [facility] [id number] 10:02:00 12:23:00 Joe Yan 09 2014-06-25 2014-06-26 Outpatient Courtney [facility] [id number] 23:25:00 09:14:00 Atul Priest 2013-04-14 2013-04-15 Outpatient [facility] [id number] [facility] 21:04:00 01:45:00 07 [facility] 2013-04-14 2013-04-15 Outpatient [facility] [id number] [place] 21:04:00 01:45:00 07 [facility] 2013-04-14 2013-04-15 Outpatient [facility] [id number] [place] 21:04:00 01:45:00 07 [facility] 2013-04-14 2013-04-15 Outpatient [facility] [id number] [place] 21:04:00 01:45:00 07 [facility] 2013-04-14 2013-04-15 Outpatient [facility] [id number] [facility] 21:04:00 01:45:00 07 [facility] Results Test Description Test Time Test [...] the main Lab for analysi s. Urine [id number] 11:32:13 Test Item Value Reference Range Interpretation [...] Escherichia coli C Urine Added by [email or web address] [id number] 07:52:10 Test Item Value Reference Range Interpretation Comments Glucose POC (test 160 mg/dL 70-115 H If you con hearing aide technician your code = Glucose POC) patient critically ill, the Merlin-Accu Check Infrom II meter should not be used for Glucose determination. Draw a venous Glucose and send to the main Lab for analysis. POC [id number] 19:32:05 Test Item Value Reference Range Interpretation Comments Glucose POC (test 184 mg/dL 70-115 H If you con hearing aide technician your code = Glucose POC) patient critically ill, the Merlin-Accu Check Infrom II meter should not be used for Glucose determination. Draw a venous Glucose and send to the main Lab for analysis. POC [id number] 17:16:35 Test Item Value Reference Range Interpretation Comments Glucose POC (test 281 mg/dL 70-115 H Notify RN or MDIf you code = Glucose POC) consider your patient critically ill, the Merlin-Accu Chec k Infrom II meter should not be used for Glucos e determination. Draw a venous Glucose and send to the main Lab for analysis. POC [id number] 12:00:38 Test Item Value Reference Range Interpretation Comments Glucose POC (test 138 mg/dL 70-115 H Notify RN or MDIf you code = Glucose POC) consider your patient critically ill, the Merlin-Accu Chec k Infrom II meter should not be used for Glucos e determination. Draw a venous Glucose and send to the main Lab for analysis. POC [id number] 07:41:32 Test Item Value Reference Range Interpretation Comments Glucose POC (test 206 mg/dL 70-115 H Notify RN or MDIf you code = Glucose POC) consider your patient critically ill, the Merlin-Accu Chec k Infrom II meter should not be used for Glucos e determination. Draw a venous Glucose and send to the main Lab for analysis. Urinalysis [id number] 21:07:21 Test Item Value Reference Range Interpretation Comments UA WBC (test code = UA WBC) TNTC 0-5 A UA RBC (test code = UA RBC) 6-10 0-5 A UA Bacteria (test code = UA Bacteria) Profuse A UA Squam Epithelial (test code = UA 6-10 A Squam Epithelial) Urinalysis with Culture, if [id number] 20:35:14 Test Item Value Reference Range Interpretation [...] Micro Indicated Not Indicated A Ind?) POC [id number] 19:06:34 Test Item Value Reference Range Interpretation Comments Glucose POC (test 207 mg/dL 70-115 H If you con hearing aide technician your code = Glucose POC) patient critically ill, the Merlin-Accu Check Infrom II meter should not be used for Glucose determination. Draw a venous Glucose and send to the main Lab for analysis. POC [id number] 17:12:03 Test Item Value Reference Range Interpretation Comments Glucose POC (test 173 mg/dL 70-115 H Notify RN or MDIf you code = Glucose POC) consider your patient critically ill, the Merlin-Accu Chec k Infrom II meter should not be used for Glucos e determination. Draw a venous Glucose and send to the main Lab for analysis. POC [id number] 11:58:01 Test Item Value Reference Range Interpretation Comments Glucose POC (test 289 mg/dL 70-115 H Notify RN or MDIf you code = Glucose POC) consider your patient critically ill, the Merlin-Accu Chec k Infrom II meter should not be used for Glucos e determination. Draw a venous Glucose and send to the main Lab for analysis. POC [id number] 08:19:37 Test Item Value Reference Range Interpretation Comments Glucose POC (test 201 mg/dL 70-115 H Notify RN or MDIf you code = Glucose POC) consider your patient critically ill, the Merlin-Accu Chec k Infrom II meter should not be used for Glucos e determination. Draw a venous Glucose and send to the main Lab for analysis. POC [id number] 20:37:35 Test Item Value Reference Range Interpretation Comments Glucose POC (test 272 mg/dL 70-115 H If you con hearing aide technician your code = Glucose POC) patient critically ill, the Merlin-Accu Check Infrom II meter should not be used for Glucose determination. Draw a venous Glucose and send to the main Lab for analysis. POC [id number] 17:23:05 Test Item Value Reference Range Interpretation Comments Glucose POC (test 229 mg/dL 70-115 H If you con hearing aide technician your code = Glucose POC) patient critically ill, the Merlin-Accu Check Infrom II meter should not be used for Glucose determination. Draw a venous Glucose and send to the main Lab for analysis. POC [id number] 12:01:01 Test Item Value Reference Range Interpretation Comments Glucose POC (test 155 mg/dL 70-115 H If you con hearing aide technician your code = Glucose POC) patient critically ill, the Merlin-Accu Check Infrom II meter should not be used for Glucose determination. Draw a venous Glucose and send to the main Lab for analysis. POC [id number] 08:07:32 Test Item Value Reference Range Interpretation Comments Glucose POC (test 248 mg/dL 70-115 H If you con hearing aide technician your code = Glucose POC) patient critically ill, the Merlin-Accu Check Infrom II meter should not be used for Glucose determination. Draw a venous Glucose and send to the main Lab for analysis. IG [id number] 06:50:39 Test Item Value Reference Range Interpretation Comments IG (test code = IG) 0.7 % 0.0-5.0 IG Abs (test code = IG Abs) 0 x10 N Complete Blood Count with [id number] 06:50:38 Test Item Value Reference Range Interpretation [...] code = IPF) 0 % N Automated [id number] 06:50:38 Test Item Value Reference Range Interpretation Comments Neutro Auto (test code = Neutro 50.3 % 36.0-70.0 Auto) Lymph Auto (test code = Lymph Auto) 38.6 % 12.0-44.0 Day Auto (test code = Day Auto) 7.3 % 0.0-11.0 Eos, Auto (test code = Eos, Auto) 2.4 % 0.0-7.0 Basophil Auto (test code = Basophil 0.7 % 0.0-2.0 Auto) Neutro Absolute (test code = Neutro 3.0 x10 1.6-7.4 Absolute) Lymph Absolute (test code = Lymph 2.28 x10 .50-4.60 Absolute) Day Absolute (test code = Day .43 x10 .00-1.20 Absolute) Eos Absolute (test code = Eos 0.14 x10 0.00-0.74 Absolute) Baso Absolute (test code = Baso 0.04 x10 0.00-0.21 Absolute) Basic Metabolic [id number] 05:38:20 Test Item Value Reference Range Interpretation [...] = Lipemia) 0 mg/dL 8-11 Basic Metabolic [id number] 05:38:20 Test Item Value Reference Range Interpretation [...] = 0 mg/dL 8-11 Lipemia) Basic Metabolic [id number] 05:38:20 Test Item Value Reference Range Interpretation [...] code = 0 mg/dL 8-11 Lipemia) POC [id number] 20:28:33 Test Item Value Reference Range Interpretation Comments Glucose POC (test 169 mg/dL 70-115 H If you con hearing aide technician your code = Glucose POC) patient critically ill, the Merlin-Accu Check Infrom II meter should not be used for Glucose determination. Draw a venous Glucose and send to the main Lab for analysis. POC [id number] 16:39:30 Test Item Value Reference Range Interpretation Comments Glucose POC (test 103 mg/dL 70-115 If you con hearing aide technician your code = Glucose POC) patient critically ill, the Merlin-Accu Check Infrom II meter should not be used for Glucose determination. Draw a venous Glucose and send to the main Lab for analysis. RPR [id number] 12:08:56 Test Item Value Reference Range Interpretation Comments RPR Qual (test code = RPR Qual) Non-Reactive Non-Reactive Reactive Control (test code = Reactive Reactive Control) Weak Reactive Control (test Weak Reactive code = Weak Reactive Control) Non-Reactive Control (test code Non-Reactive = Non-Reactive Control) Lot # (test code = Lot #) [id number] N Expiration Dt (test code = 03-20-2021 N Expiration Dt) POC [id number] 11:52:31 Test Item Value Reference Range Interpretation Comments Glucose POC (test 250 mg/dL 70-115 H If you con hearing aide technician your code = Glucose POC) patient critically ill, the Merlin-Accu Check Infrom II meter should not be used for Glucose determination. Draw a venous Glucose and send to the main Lab for analysis. POC [id number] 07:55:29 Test Item Value Reference Range Interpretation Comments Glucose POC (test 205 mg/dL 70-115 H If you con hearing aide technician your code = Glucose POC) patient critically ill, the Merlin-Accu Check Infrom II meter should not be used for Glucose determination. Draw a venous Glucose and send to the main Lab for analysis. Lipid [id number] 05:46:04 Test Item Value Reference Range Interpretation [...] LDL/HDL Ratio=L DL Calc/HDL Chol Thyroid Stimulating [id number] 05:46:04 Test Item Value Reference Range Interpretation Comments TSH (test code = TSH) 3.274 mcIU/mL 0.550-4.780 Hemoglobin [id number] 05:41:08 Test Item Value Reference Range Interpretation Comments Hemoglobin A1c (test code 7.6 % 4.0-5.8 H Di abetic >=6.5 = Hemoglobin A1c) %Prediabet es 5.7-6.4 %Normal <5.7 % Hepatitis B Surface [id number] 21:19:36 Test Item Value Reference Range Interpretation Comments Hep Bs Ag (test code = Hep Bs Non-Reactive Non-Reactive Ag) Novel Coronavirus SARS-CoV-2, [id number] 11:16:16 Test Item Value Reference Range Interpretation [...] Emergency Use Authorization." Novel Coronavirus (COVID-19), EMANUEL [id number] 11:11:24TNPTest not sent and performed at [facility].Rapid was perfomed in Microbiology.Wrong covid test was ord ered.Urine DOA [id number] 00:17:49 Test Item Value Reference Range Interpretation [...] Propoxyphene Confirmation wi thin 7 days. Alcohol [id number] 00:17:29 Test Item Value Reference Range Interpretation Comments Ethanol Level 9.0 mg/dL N The pharmacolo gical (test code = response to blo od alcohol Ethanol Level) levels may va ry from individual to i ndividual. The fatal omkar ntration has been report ed to be >400 mg/dl. Comprehensive Metabolic [id number] 00:17:28 Test Item Value Reference Range Interpretation [...] = Lipemia) 0 g/dL 1-2 Comprehensive Metabolic [id number] 00:17:28 Test Item Value Reference Range Interpretation [...] = 0 g/dL 1-2 Lipemia) Comprehensive Metabolic [id number] 00:17:28 Test Item Value Reference Range Interpretation [...] ag e have not been validated by [facility] MDRD study and should be interpreted wit [...] ag e have not been validated by [facility] MDRD study and should be interpreted wit [...] g/dL 1-2 Lipemia) Complete Blood Count with [id number] 23:26:28 Test Item Value Reference Range Interpretation [...] code = IPF) 0 % N Automated [id number] 23:26:28 Test Item Value Reference Range Interpretation Comments Neutro Auto (test code = Neutro 67.1 % 36.0-70.0 Auto) Lymph Auto (test code = Lymph Auto) 23.3 % 12.0-44.0 Day Auto (test code = Day Auto) 5.8 % 0.0-11.0 Eos, Auto (test code = Eos, Auto) 2.3 % 0.0-7.0 Basophil Auto (test code = Basophil 0.8 % 0.0-2.0 Auto) Neutro Absolute (test code = Neutro 6.0 x10 1.6-7.4 Absolute) Lymph Absolute (test code = Lymph 2.10 x10 .50-4.60 Absolute) Day Absolute (test code = Day .52 x10 .00-1.20 Absolute) Eos Absolute (test code = Eos 0.21 x10 0.00-0.74 Absolute) Baso Absolute (test code = Baso 0.07 x10 0.00-0.21 Absolute) IG [id number] 23:26:28 Test Item Value Reference Range Interpretation Comments IG (test code = IG) 0.7 % 0.0-5.0 IG Abs (test code = IG Abs) 0 x10 N HERPES VIRUS ANTIBODY, [id number] 21:46:00 Test Item Value Reference Range Interpretation Comments HERPES VIRUS IGM (AKER) Negative SE E ATTACHMENT (test code = 1808) BLOOD [id number] 06:00:00 Test Item Value Reference Range Interpretation Comments CULTURE (BEAKER) (test No growth in 5 days code = 1095) BLOOD [id number] 06:00:00 Test Item Value Reference Range Interpretation Comments CULTURE (BEAKER) (test No growth in 5 days code = 1095) POCT-GLUCOSE [id number] 12:11:00 Test Item Value Reference Range Interpretation Comments POC-GLUCOSE METER 154 mg/dL 70-110 H TESTED AT [place] [address] ([facility]) (test code = [facility]) [address] POCT-GLUCOSE [id number] 07:53:00 Test Item Value Reference Range Interpretation Comments POC-GLUCOSE METER 87 mg/dL 70-110 TESTED AT [place] [address] ([facility]) (test code = [facility] [address] 1538) POCT-GLUCOSE [id number] 06:49:00 Test Item Value Reference Range Interpretation Comments POC-GLUCOSE METER 79 mg/dL 70-110 TESTED AT [place] [address] ([facility]) (test code = [facility] [address] 1538) COMPREHENSIVE METABOLIC [id number] 06:15:00 Test Item Value Reference Range Interpretation Comments TOTAL PROTEIN 5.1 gm/dL 6.0-8.3 L ([facility]) (test code = 770) ALBUMIN ([facility]) 2.2 g/dL 3.5-5.0 L (test code = 1145) ALKALINE PHOSPHATASE 78 U/L 40-150 ([facility]) (test code = 346) BILIRUBIN [...] S NOT APPLICABLE FOR DIALYSIS PATIEN TS. [id number] 06:11:00 Test Item Value Reference Range Interpretation Comments MAGNESIUM (BEAKER) (test code = 2.1 mg/dL 1.6-2.6 627) HEPATIC FUNCTION [id number] 06:11:00 Test Item Value Reference Range Interpretation [...] code = 513 U/L 6-55 H 347) [id number] 05:30:00 Test Item Value Reference Range Interpretation Comments FIBRINOGEN LEVEL ([facility]) (test 368 mg/dl 225-434 code = 658) [id number] 05:30:00 Test Item Value Reference Range Interpretation Comments PARTIAL THROMBOPLASTIN TIME 42.2 seconds 22.5-36.0 H ([facility]) (test code = 760) PROTHROMBIN [id number] 05:29:00 Test Item Value Reference Range Interpretation Comments PROTIME ([facility]) (test code = 14.8 seconds 11.7-14.7 H 759) INR ([facility]) (test code = 370) 1.2 <=5.9 RECOMMENDED COUMADIN/WARFARIN INR THERAPY RANGESSTANDARD DOSE: 2.0 - 3.0 Includes: PROPHYLAXIS forvenous thrombosis, systemic embolization; TREATMENT for venous thrombosis and/or pulmonary embolus.HIGH RISK: Target INR is 2.5-3.5 for patients with mechanical heart valves.POCT-GLUCOSE [id number] 21:09:00 Test Item Value Reference Range Interpretation Comments POC-GLUCOSE METER 178 mg/dL 70-110 H TESTED AT [place] [address] ([facility]) (test code = [place] 1538) [address] POCT-GLUCOSE [id number] 17:18:00 Test Item Value Reference Range Interpretation Comments POC-GLUCOSE METER 178 mg/dL 70-110 H TESTED AT [place] [address] ([facility]) (test code = [place] 1538) [address] POCT-GLUCOSE [id number] 13:48:00 Test Item Value Reference Range Interpretation Comments POC-GLUCOSE METER 150 mg/dL 70-110 H TESTED AT [place] [address] ([facility]) (test code = [place] 1538) [address] FACTOR 5 ACTIVITY (BLEEDING RISK)2017-01-06 10:04:00 Test Item Value Reference Range Interpretation Comments FACTOR V ACTIVITY ([facility]) (test code 90.0 % 60.0-150.0 = 665) Effective 10/24/2013: Reference Range Change-Adult onlyNew: 60.0-150.0 Previous: 50.0-150.0CYTOMEGALOVIRUS ANTIBODY, [id number] 09:42:00 Test Item Value Reference Range Interpretation Comments CYTOMEGALOVIRUS IGM ANTIBODY Negative (BEAKER) (test code = 816) HERPES VIRUS ANTIBODY, [id number] 08:59:00 Test Item Value Reference Range Interpretation Comments 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 G 1807) CYTOMEGALOVIRUS ANTIBODY, [id number] 08:59:00 Test Item Value Reference Range Interpretation Comments CYTOMEGALOVIRUS IGG ANTIBODY Positive (BEAKER) (test code = 790) EBV-VCA ANTIBODY, [id number] 08:59:00 Test Item Value Reference Range Interpretation Comments JASE-WALL VCA IGG (BEAKER) (test Positive code = 983) EBV-VCA ANTIBODY, [id number] 08:59:00 Test Item Value Reference Range Interpretation Comments JASE-WALL VCA IGM (BEAKER) (test Negative code = 984) POCT-GLUCOSE [id number] 07:59:00 Test Item Value Reference Range Interpretation Comments POC-GLUCOSE METER 81 mg/dL 70-110 TESTED AT [facility] 6720 (BEAKER) (test code = [place] [facility] [address] 1538) COMPREHENSIVE METABOLIC [id number] 06:23:00 Test Item Value Reference Range Interpretation [...] S NOT APPLICABLE FOR DIALYSIS PATIEN TS. [id number] 06:17:00 Test Item Value Reference Range Interpretation Comments MAGNESIUM (BEAKER) (test code = 1.8 mg/dL 1.6-2.6 627) HEPATIC FUNCTION [id number] 06:17:00 Test Item Value Reference Range Interpretation [...] code = 779 U/L 6-55 H 347) [id number] 06:00:00 Test Item Value Reference Range Interpretation Comments FIBRINOGEN LEVEL (BEAKER) (test 390 mg/dl 225-434 code = 658) [id number] 06:00:00 Test Item Value Reference Range Interpretation Comments PARTIAL THROMBOPLASTIN TIME 40.2 seconds 22.5-36.0 H (BEAKER) (test code = 760) PROTHROMBIN [id number] 05:59:00 Test Item Value Reference Range Interpretation Comments PROTIME (BEAKER) (test code = 14.6 seconds 11.7-14.7 759) INR ([facility]) (test code = 370) 1.2 <=5.9 RECOMMENDED COUMADIN/WARFARIN INR THERAPY RANGESSTANDARD DOSE: 2.0 - 3.0 Includes: PROPHYLAXIS forvenous thrombosis, systemic embolization; TREATMENT for venous thrombosis and/or pulmonary embolus.HIGH RISK: Target INR is 2.5-3.5 for patients with mechanical heart valves.POCT-GLUCOSE [id number] 21:46:00 Test Item Value Reference Range Interpretation Comments POC-GLUCOSE METER 153 mg/dL 70-110 H TESTED AT [place] [address] ([facility]) (test code = [facility] 1538) [address] POCT-GLUCOSE [id number] 18:47:00 Test Item Value Reference Range Interpretation Comments POC-GLUCOSE METER 181 mg/dL 70-110 H TESTED AT [place] [address] ([facility]) (test code = [facility] 1538) [address] POCT-GLUCOSE [id number] 12:40:00 Test Item Value Reference Range Interpretation Comments POC-GLUCOSE METER 178 mg/dL 70-110 H TESTED AT [place] [address] ([facility]) (test code = [facility] 1538) [address] POCT-GLUCOSE [id number] 07:51:00 Test Item Value Reference Range Interpretation Comments POC-GLUCOSE METER 166 mg/dL 70-110 H TESTED AT [place] [address] ([facility]) (test code = [facility] 1538) [address] COMPREHENSIVE METABOLIC [id number] 03:26:00 Test Item Value Reference Range Interpretation Comments TOTAL PROTEIN 5.2 gm/dL 6.0-8.3 L ([facility]) (test code = 770) ALBUMIN ([facility]) 2.3 g/dL 3.5-5.0 L (test code = 1145) ALKALINE PHOSPHATASE 72 U/L 40-150 ([facility]) (test code = 346) BILIRUBIN TOTAL 2.0 mg/dL 0.2-1.2 H ([facility]) (test code = 377) SODIUM (BEAKER) (test [...] S NOT APPLICABLE FOR DIALYSIS PATIEN TS. [id number] 03:22:00 Test Item Value Reference Range Interpretation Comments MAGNESIUM (BEAKER) (test code = 1.4 mg/dL 1.6-2.6 L 627) HEPATIC FUNCTION [id number] 03:22:00 Test Item Value Reference Range Interpretation [...] code = 1009 U/L 6-55 H 347) [id number] 03:12:00 Test Item Value Reference Range Interpretation Comments AMMONIA (BEAKER) (test code = 348) 29 mol/L 18-72 [id number] 03:10:00 Test Item Value Reference Range Interpretation Comments PARTIAL THROMBOPLASTIN TIME 42.3 seconds 22.5-36.0 H (BEAKER) (test code = 760) PROTHROMBIN [id number] 03:09:00 Test Item Value Reference Range Interpretation Comments PROTIME (BEAKER) (test code = 16.4 seconds 11.7-14.7 H 759) INR (BEAKER) (test code = 370) 1.3 <=5.9 RECOMMENDED COUMADIN/WARFARIN INR THERAPY RANGESSTANDARD DOSE: 2.0 - 3.0 Includes: PROPHYLAXIS forvenous thrombosis, systemic embolization; TREATMENT for venous thrombosis and/or pulmonary embolus.HIGH RISK: Target INR is 2.5-3.5 for patients with mechanical heart valves.[id number] 03:09:00 Test Item Value Reference Range Interpretation Comments FIBRINOGEN LEVEL (BEAKER) (test 413 mg/dl 225-434 code = 658) CBC W/PLT COUNT & AUTO [id number] 03:09:00 Test Item Value Reference Range Interpretation [...] L 0.00-0.20 (test code = 417) 0.00POCT-GLUCOSE [id number] 22:33:00 Test Item Value Reference Range Interpretation Comments POC-GLUCOSE METER 230 mg/dL 70-110 H TESTED AT [facility] (test code = [facility] 1538) [address] POCT-GLUCOSE [id number] 18:17:00 Test Item Value Reference Range Interpretation Comments POC-GLUCOSE METER 222 mg/dL 70-110 H TESTED AT [place] [id number] ([facility]) (test code = [facility] 1538) [address] COMPREHENSIVE METABOLIC [id number] 16:59:00 Test Item Value Reference Range Interpretation [...] PATIEN TS. PERIPHERAL BLOOD SMEAR - PATHOLOGIST [id number] 15:30:00 Test Item Value Reference Range Interpretation Comments RBC MORPHOLOGY Polychromasia (BEAKER) (test code = 2846) RBC MORPHOLOGY Anisocytosis (BEAKER) (test code = 43795) PERIPHERAL SMR REVIEW Cell counts confirmed (BEAKER) (test code = 2640) [id number] Josefina Lara M.D. (BEAKER) (test code = (electronic signature) 6777) PROTHROMBIN [id number] 15:12:00 Test Item Value Reference Range Interpretation [...] Negative Negative (test code = 418) POCT-GLUCOSE [id number] 12:47:00 Test Item Value Reference Range Interpretation Comments POC-GLUCOSE METER 212 mg/dL 70-110 H TESTED AT [facility] 6720 ([facility]) (test code = [place] 1538) [address] [id number] 12:34:00 Test Item Value Reference Range Interpretation Comments RPR SCREEN [facility] (test code = Nonreactive Nonreactive 420) CLOSTRIDIUM DIFFICILE TOXIN [id number] 10:12:00 Test Item Value Reference Range Interpretation Comments CLOSTRIDIUM DIFFICILE TOXIN, PCR Not Detected Not Detected ([facility]) (test code = 1525) This qualitative real-time [...] Reference Range Change-Adult onlyNew: 60.0-150.0 Previous: 50.0-150.0POCT-GLUCOSE [id number] 06:40:00 Test Item Value Reference Range Interpretation Comments POC-GLUCOSE METER 167 mg/dL 70-110 H TESTED AT [facility] 6720 (BEAKER) (test code = [place] 1538) [address] COMPREHENSIVE METABOLIC [id number] 04:08:00 Test Item Value Reference Range Interpretation [...] ESTIM ATED GFR. Specimen slightly ictericHEPATIC FUNCTION [id number] 04:06:00 Test Item Value Reference Range Interpretation [...] 1091 U/L 6-55 H 347) Specimen slightly [id number] 04:01:00 Test Item Value Reference Range Interpretation Comments FIBRINOGEN LEVEL (BEAKER) (test 379 mg/dl 225-434 code = 658) [id number] 04:01:00 Test Item Value Reference Range Interpretation Comments PARTIAL THROMBOPLASTIN TIME 40.7 seconds 22.5-36.0 H (BEAKER) (test code = 760) PROTHROMBIN [id number] 04:00:00 Test Item Value Reference Range Interpretation [...] L 0.00-0.20 (test code = 417) 0.00POCT-GLUCOSE [id number] 00:19:00 Test Item Value Reference Range Interpretation Comments POC-GLUCOSE METER 159 mg/dL 70-110 H TESTED AT [place] [address] ([facility]) (test code = [place] 1538) [address] POCT-GLUCOSE [id number] 18:56:00 Test Item Value Reference Range Interpretation Comments POC-GLUCOSE METER 192 mg/dL 70-110 H TESTED AT [facility] 6720 ([facility]) (test code = [place] 1538) [address] COMPREHENSIVE METABOLIC [id number] 16:55:00 Test Item Value Reference Range Interpretation [...] CALCULATE ESTIM ATED GFR. Specimen slightly ictericPROTHROMBIN [id number] 16:37:00 Test Item Value Reference Range Interpretation Comments PROTIME (BEAKER) (test code = 20.9 seconds 11.7-14.7 H 759) INR (BEAKER) (test code = 370) 1.8 <=5.9 RECOMMENDED COUMADIN/WARFARIN INR THERAPY RANGESSTANDARD DOSE: 2.0 - 3.0 Includes: PROPHYLAXIS forvenous thrombosis, systemic embolization; TREATMENT for venous thrombosis and/or pulmonary embolus.HIGH RISK: Target INR is 2.5-3.5 for patients with mechanical heart valves.HEPATITIS B SURFACE [id number] 14:05:00 Test Item Value Reference Range Interpretation Comments HEPATITIS B SURFACE ANTIBODY < mIU/mL <8.0 (BEAKER) (test code = 647) HEPATITIS B CORE ANTIBODY, [id number] 13:43:00 Test Item Value Reference Range Interpretation Comments HEPATITIS B CORE TOTAL ANTIBODY Nonreactive Nonreactive (BEAKER) (test code = 497) BLOOD GAS, [id number] 13:35:00 Test Item Value Reference Range Interpretation [...] code = 1819) 28.0 % URINALYSIS W/ WASNRFKEMMB6032-48-04 13:16:00 Test Item Value Reference Range Interpretation [...] 1584) SOURCE(BEAKER) (test code = Urine, [place] 4590) VITAMIN D, 67-FFGALSQ0433-51-16 13:14:00 Test Item Value Reference Range Interpretation Comments VITAMIN D 25-OH (BEAKER) (test code = < ng/mL 13.0-47.8 L 2764) ALPHA FETOPROTEIN (AFP), TUMOR [id number] 13:06:00 Test Item Value Reference Range Interpretation Comments ALPHA-FETOPROTEIN (BEAKER) (test code < ng/mL <10.0 = 1094) Effective 05/08/2014: Reference Range ChangeNew: <10.0 Previous: 0.0-8.0 HEMOGLOBIN [id number] 13:05:00 Test Item Value Reference Range Interpretation Comments HEMOGLOBIN A1C (BEAKER) (test code = 7.6 % 4.3-6.1 H 368) CARCINOEMBRYONIC ANTIGEN (CEA)2017-01-03 12:59:00 Test Item Value Reference Range Interpretation Comments CARCINOEMBRYONIC ANTIGEN (BEAKER) 2.0 ng/mL 0.0-5.0 (test code = 685) [id number] 12:59:00 Test Item Value Reference Range Interpretation Comments FERRITIN (BEAKER) (test code = 1841 ng/mL 5-275 H 361) Effective 05/08/2014: Reference Range ChangeNew: Male 5-275 Previous: Male 22-322 Female 5-275 Female 01-106J78327-65-16 12:58:00 Test Item Value Reference Range Interpretation Comments T4 TOTAL (BEAKER) (test code = 895) 4.5 ug/dL 4.9-11.7 L [id number] 12:58:00 Test Item Value Reference Range Interpretation Comments THYROID STIMULATING HORMONE 1.79 uIU/mL 0.35-4.94 (BEAKER) (test code = 772) [id number] 12:58:00 Test Item Value Reference Range Interpretation Comments T3 TOTAL (BEAKER) (test code = 656) 34 ng/dL 48-159 L Effective 05/08/2014: Reference Range ChangeNew: 48-159 Previous: 60-181 CALCIUM, [id number] 12:47:00 Test Item Value Reference Range Interpretation Comments CALCIUM IONIZED (BEAKER) (test 1.05 mmol/L 1.12-1.27 L code = 698) PH, BLOOD (BEAKER) (test code = 7.43 1810) [id number] 12:42:00 Test Item Value Reference Range Interpretation [...] % 20-55 (test code = 2590) URIC [id number] 12:40:00 Test Item Value Reference Range Interpretation Comments URIC ACID (BEAKER) (test code = 16.0 mg/dL 2.6-7.2 H 773) Specimen slightly ictericLIPID [id number] 12:40:00 Test Item Value Reference Range Interpretation [...] 160-189 Very High >=190 Specimen slightly ictericBILIRUBIN, [id number] 12:40:00 Test Item Value Reference Range Interpretation Comments BILIRUBIN DIRECT (MADIE) (test 2.4 mg/dL 0.1-0.5 H code = 706) GAMMA GLUTAMYL TRANSFERASE (GGT)2017-01-03 12:40:00 Test Item Value Reference Range Interpretation Comments GAMMA GLUTAMYL TRANSFERASE (BEAKER) 53 U/L 9-64 (test code = 364) Specimen slightly nhzfhpdPWITMVB9215-01-56 12:39:00 Test Item Value Reference Range Interpretation Comments ETHANOL (BEAKER) (test code = 400) < mg/dL <=10 SCREEN, [id number] 12:36:00 Test Item Value Reference Range Interpretation Comments TEST URINE (MADIE) (test Negative code = 583) POCT-GLUCOSE [id number] 12:34:00 Test Item Value Reference Range Interpretation Comments POC-GLUCOSE METER 189 mg/dL 70-110 H TESTED AT [facility] 67[address] (MADIE) (test code = [place]38) [address] HIV-1 ANTIGEN WITH HIV-1/2 [id number] 11:58:00 Test Item Value Reference Range Interpretation Comments HIV-1 ANTIGEN WITH HIV 1\\T\\2 Nonreactive Nonreactive ANTIBODY (2) (MADIE) (test code = 2586) TROPONIN [id number] 09:44:00 Test Item Value Reference Range Interpretation [...] Previous: 0.0-4.9CK-MB Reference Range:<6.7 Normal6.7-10.0 Borderline>10.0 AbnormalACETAMINOPHEN [id number] 08:31:00 Test Item Value Reference Range Interpretation Comments ACETAMINOPHEN LEVEL (BEAKER) (test < ug/mL 10.0-30.0 L code = 344) TROPONIN [id number] 05:53:00 Test Item Value Reference Range Interpretation [...] acute neurological disease, and persistent tachyarrhythmia.BASIC METABOLIC [id number] 05:53:00 Test Item Value Reference Range Interpretation [...] TO CALCULA TE ESTIMATED GFR. Specimen slightly ovyhkxwZAMCKMVSMO2664-03-97 05:52:00 Test Item Value Reference Range Interpretation Comments PHOSPHORUS (BEAKER) (test code = 5.7 mg/dL 2.3-4.7 H 604) HEPATIC FUNCTION [id number] 05:52:00 Test Item Value Reference Range Interpretation [...] Specimen slightly ictericCREATINE KINASE (CK), TOTAL AND [id number] 05:52:00 Test Item Value Reference Range Interpretation Comments CREATINE KINASE TOTAL (BEAKER) 341 U/L 29-200 H (test code = 380) CREATINE KINASE-MB (BEAKER) (test 5.4 ng/mL 0.0-6.6 code = 750) CREATINE KINASE-MB INDEX (BEAKER) 1.6 % (test code = 395) Effective 05/08/2014: CK-MB Reference Range ChangeNew: 0.0-6.6 Previous: 0.0-4.9CK-MB Reference Range:<6.7 Normal6.7-10.0 Borderline>10.0 AbnormalCBC W/PLT COUNT & AUTO [id number] 05:48:00 Test Item Value Reference Range Interpretation [...] K/ L 0.00-0.20 (test code = 417) 0.76PEBRPAIWAW0939-27-74 05:09:00 Test Item Value Reference Range Interpretation Comments FIBRINOGEN LEVEL (BEAKER) (test 427 mg/dl 225-434 code = 658) [id number] 05:09:00 Test Item Value Reference Range Interpretation Comments PARTIAL THROMBOPLASTIN TIME 36.2 seconds 22.5-36.0 H (BEAKER) (test code = 760) PROTHROMBIN TIME/[id number] 05:08:00 Test Item Value Reference Range Interpretation Comments PROTIME (BEAKER) (test code = 22.8 seconds 11.7-14.7 H 759) INR (BEAKER) (test code = 370) 2.0 <=5.9 RECOMMENDED COUMADIN/WARFARIN INR THERAPY RANGESSTANDARD DOSE: 2.0 - 3.0 Includes: PROPHYLAXIS forvenous thrombosis, systemic embolization; TREATMENT for venous thrombosis and/or pulmonary embolus.HIGH RISK: Target INR is 2.5-3.5 for patients with mechanical heart valves.HEPATITIS PANEL, [id number] 03:40:00 Test Item Value Reference Range Interpretation Comments HEPATITIS A IGM ANTIBODY (BEAKER) Nonreactive Nonreactive (test code = 498) HEPATITIS B CORE IGM ANTIBODY Nonreactive Nonreactive (BEAKER) (test code = 645) HEPATITIS C ANTIBODY (BEAKER) Nonreactive Nonreactive (test code = 367) HEPATITIS B SURFACE ANTIGEN (2) Nonreactive Nonreactive (BEAKER) (test code = 2585) CREATININE, RANDOM [id number] 03:18:00 Test Item Value Reference Range Interpretation Comments CREATININE URINE (BEAKER) (test 118.7 mg/dL code = 375) Reference Range: No NormalsSODIUM, RANDOM [id number] 03:18:00 Test Item Value Reference Range Interpretation Comments SODIUM URINE (BEAKER) (test code = 60 meq/L 243) Reference Range: No NormalsUREA NITROGEN, RANDOM [id number] 03:18:00 Test Item Value Reference Range Interpretation Comments UREA NITROGEN URINE (BEAKER) (test 303 mg/dL code = 538) Reference Range: No ArckrbrAAANITE6041-88-81 03:07:00 Test Item Value Reference Range Interpretation Comments AMMONIA (BEAKER) (test code = 348) 48 mol/L 18-72 H-RPPVL4550-19WBFJM4170-82-92 02:57:00 Test Item Value Reference Range Interpretation [...] within 95-100% range. URINALYSIS W/ REFLEX URINE OWXRZEN0270-09-16 02:53:00 Test Item Value Reference Range Interpretation [...] /LPF = 514) SOURCE(BEAKER) (test code = 8652) [id number] 02:49:00 Test Item Value Reference Range Interpretation Comments PARTIAL THROMBOPLASTIN TIME 39.4 seconds 22.5-36.0 H (BEAKER) (test code = 760) PROTHROMBIN TIME/[id number] 02:48:00 Test Item Value Reference Range Interpretation Comments PROTIME (BEAKER) (test code = 22.0 seconds 11.7-14.7 H 759) INR (BEAKER) (test code = 370) 1.9 <=5.9 RECOMMENDED COUMADIN/WARFARIN INR THERAPY RANGESSTANDARD DOSE: 2.0 - 3.0 Includes: PROPHYLAXIS forvenous thrombosis, systemic embolization; TREATMENT for venous thrombosis and/or pulmonary embolus.HIGH RISK: Target INR is 2.5-3.5 for patients with mechanical heart valves.[id number] 02:48:00 Test Item Value Reference Range Interpretation Comments FIBRINOGEN LEVEL (BEAKER) (test 421 mg/dl 225-434 code = 658) BLOOD GAS, [id number] 02:43:00 Test Item Value Reference Range Interpretation [...] 21.0 % CBC W/PLT COUNT & AUTO LDJOCILJIAUS3388-68-02 02:43:00 Test Item Value Reference Range Interpretation [...] code = 417) 0.00LACTIC ACID, VENOUS, WHOLE [id number] 02:35:00 Test Item Value Reference Range Interpretation Comments LACTATE BLOOD VENOUS (2) (BEAKER) 0.8 mmol/L 0.5-2.2 (test code = 2872) Effective 10/23/2015: Units/Reference Range ChangeNew: 0.5-2.2 mmol/L Previous: 5-20 mg/dLSpecimen slightly heniftjOQMVTDGUMQDI3402-68-70 11:32:0014.6[facility] XqklzqwJWAUCACEMRLW3440-88-13 11:32:0033[facility] BirjzocUKDVINTVSFFC7873-85-30 11:32:008.3[facility] AmgxpscGWHYMQOLLMHU7402-95-86 11:32:0081[facility] UOVMFXCJMQIA0448-50-47 11:32:001.95[facility] AdiswzsAAUOWQVMSLSU0623-96-60 11:32:0055[facility] XaxjbvbJBZRFMFJCXBU1272-99-31 11:32:0019[facility] XGKBHRKAXAYE3522-68-07 11:32:75283Cnvfzmqr KtsriblILHUUODTUATI0382-48-95 11:32:64889Ygiowfnc JwuitncVZLTTVHBWCFZ9919-00-13 11:32:004.6[facility] MZSOHOJYFQ5446-51-32 11:32:0030.4[facility] IvequkyYNXHIHQNRV7299-09-12 11:32:00 4.5[facility] LyktrsqKDFLKAROBM2824-77-97 11:32:0013.7[facility] HermannHEMATOLOGY 2016-07-30 11:32:002.6[facility] HftphboAYNAWIXKCY4002-15-49 11:32:000.7[facility] WdlkirkQTUSRERBJA2104-01-51 11:32:000.7[facility] YjugzzvKAXSHKWVNE9025-05-75 11:32:001.6[facility] SrgqlhfUHPDLZVTLO4418-64-99 11:32:000.2[facility] BIHFDSNMKN9622-09-49 11:32:0050.7[facility] EibmdxzXGNBQZUEXV1028-51-24 11:32:00 28.1[facility] HrknaltGNTVMAROFU4113-61-23 11:32:003.39[facility]annHEMATOLOGY 2016-07-30 11:32:008.9[facility] DninugaCNFPWRYQMQ6169-38-33 11:32:005.1[facility] NrolkwmQXCCFBDFNM5094-99-05 11:32:0011.3[facility] TnfwcngRWQEMTBPJB7164-27-26 11:32:14273Lnekhuuo JwpjegpDUPWDOBPHS1927-73-49 11:32:0031.8[facility] IXJELGKEIP6304-22-98 11:32:0018.0[facility] FkvbkukIKOIYSANJI2201-38-68 11:32:00 83.0[facility] HaeohzpKUSFSFTWPY4586-04-96 11:32:00 Test Item Value Reference Range Interpretation Comments MCH (test code = MCH) 26.4 pg 27.0-31.0 [facility] RyxenqqCBTDKFFEVQ6251-68-58 11:32:18630Rhzdjzic HermannIMMUNOLOGY 2016-07-30 11:32:00Negative *NA*(07/30/16 5:32 AM)[facility] HermannIMMUNOLOGY 2016-07-29 11:05:00Negative *NA*(07/29/16 5:05 AM)[facility] HermannIMMUNOLOGY 2016-07-29 11:05:0092[facility] HermannCHEM IUIJG6138-35-69 15:50:0025[facility] HermannCHEM YCREK0018-12-81 15:50:0055[facility] HermannCHEM MQZKV0809-37-39 15:50:0023[facility] HermannCHEM QRLAX4696-17-52 15:50:27194Jcsztxkf HermannCHEM CPNJV6238-84-96 15:50:31898Vdfhxerh HermannCHEM YCQWH3222-61-38 15:50:004.0 [facility]annCHEM TRMDD6182-25-91 15:50:58987Juntwupv HermannCHEM PANEL 2016-07-28 15:50:0013.0[facility] HermannCHEM UOCLE6495-97-08 15:50:007.7[facility] HermannCHEM IYAVW0907-46-13 15:50:002.49[facility] ZuifgudITHVSQSWWL7789-83-41 15:50:00 Test Item Value Reference Range Interpretation Comments PT (test code = PT) 14.8 s 12.0-14.7 [facility] RgamjmfAJPOQCZHSD4392-77-97 15:50:00 Test Item Value Reference Range Interpretation Comments PTT (test code = PTT) 40.8 s 22.9-35.8 [facility] IujhbtcKOZNXNXRPX3352-56-87 15:50:001.14[facility] HermannIMMUNOLOGY 2016-07-28 15:50:0094[facility] SffkayzMCOUYXERPU5460-45-22 10:35:001.7[facility] LsckakzXDLFVLJZSG7493-49-81 10:35:002.7[facility] ObnrcdqSTZTZGNDYJ0387-58-40 10:35:000.1[facility] LbxoyskUZZQECSYBV4915-78-30 10:35:000.7[facility] ASMFYOVHFL8212-96-46 10:35:0051.3[facility] IxnewxlFAHQKRSRSA2038-11-24 10:35:00 31.6[facility] KlheooeELRCESOUCZ0386-00-81 10:35:0014.1[facility] HermannHEMATOLOGY 2016-07-28 10:35:002.6[facility] SaasadrIWUNKXYOGN8885-29-22 10:35:000.4[facility] OpzzuhvHVSUAAWDYE1419-20-91 10:35:0029.3[facility] KrjfnpbJGFYQMEBEW8091-45-13 10:35:009.2[facility] TdcffuzHPTPCKHQZD2170-40-94 10:35:003.54[facility] QZSATQSEYF5563-48-26 10:35:005.3[facility] HetaytuLZCSTCWZQL8104-42-43 10:35:0087 [facility] ZlhrrzvJCUEVCLMRN6425-99-45 10:35:0031.4[facility] HermannHEMATOLOGY 2016-07-28 10:35:0017.9[facility] MwjwaibVCLIWJEEVD8887-42-04 10:35:0010.9[facility] WdbyztrRHLUJPDEYS0598-19-86 10:35:00 Test Item Value Reference Range Interpretation Comments MCH (test code = MCH) 26.0 pg 27.0-31.0 [facility] GeumgojYQECEQJVKU5282-18-31 10:35:0082.8[facility] HermannIMMUNOLOGY 2016-07-28 10:35:00Negative *NA*(07/28/16 4:35 AM)[facility] HermannCARDIAC ENZYMES 2016-07-27 10:22:54820Ecvhxpdw HermannCHEM PLJYI7877-17-43 10:22:007.8[facility] HermannCHEM DCXGZ0529-20-09 10:22:0021[facility] HermannCHEM DVFBJ3561-39-81 10:22:92074Xjjhrloe HermannCHEM WJDYV3293-33-15 10:22:003.8[facility] HermannCHEM BUEHY2064-40-99 10:22:76477Gowcbczi HermannCHEM AWDSV9713-19-22 10:22:000.4 [facility] HermannCHEM NGTMG5561-56-23 10:22:0074[facility] HermannCHEM PANEL 2016-07-27 10:22:0019[facility] HermannCHEM PXUID4371-96-62 10:22:005.2[facility] HermannCHEM OKHXW1690-94-86 10:22:26544Eiihqnkg HermannCHEM JQHHG0708-27-47 10:22:44291Lugmbznk HermannCHEM LDRXE8668-59-46 10:22:001.8[facility] HermannCHEM GVBUH3861-97-19 10:22:0054[facility] HermannCHEM EELTT2829-71-67 10:22:28208 [facility] HermannCHEM JKUKQ8757-78-61 10:22:003.11[facility] HermannCHEM PANEL 2016-07-27 10:22:0017[facility] HermannCHEM KOJOQ2600-67-92 10:22:0016.8[facility] HermannCHEM JGAJJ7435-79-69 10:22:003.4[facility] HermannCHEM LANXT3670-01-39 10:22:000.5[facility] HermannCHEM AHSSI1548-20-66 10:22:002.0[facility] HermannCHEM QVVHJ7769-64-83 10:22:003.7[facility] WgwpgwkNNTFXGDLUX3425-68-81 10:22:0017.7 [facility] VjlnrrbNCRYEJAYKF8731-22-16 10:22:0032.9[facility] HermannHEMATOLOGY 2016-07-27 10:22:0025.4[facility] KnjzjqwRUNGDVMCHJ9633-74-52 10:22:00 Test Item Value Reference Range Interpretation Comments MCH (test code = MCH) 26.4 pg 27.0-31.0 [facility] KnshcbnXGFBDPRMJJ2601-35-43 10:22:0080.3[facility] HermannHEMATOLOGY 2016-07-27 10:22:0011.4[facility] LdsqfvbGCKDHJZROT3857-26-66 10:22:0074[facility] GvhukqtPVBRFIHSEJ9931-72-80 10:22:003.16[facility] TbqumaxBQUUEWPILS9872-31-01 10:22:005.3[facility] SjimfusMALELANJZR3643-70-09 10:22:008.4[facility] GVFXDYIQMB5033-41-24 10:22:0014.5[facility] ClumxvaLCRCJZAZUC0253-06-16 10:22:00 29.8[facility] LpedbxxXCSXPGNFIU2447-51-47 10:22:000.1[facility] HermannHEMATOLOGY 2016-07-27 10:22:000.8[facility] YmcukgfONYFNBIOGX0410-18-23 10:22:002.9[facility] XtluxnqRLEJEODXXN4311-99-24 10:22:001.6[facility] ImevbygVIXVLFGDDN3830-40-23 10:22:000.4[facility] KsocksuKHKNOHKRSV2372-13-23 10:22:001.2[facility] PSLXYJHCOG2164-36-89 10:22:0054.1[facility] HermannSPECIAL NCSGMFASO7607-44-20 10:22:008.9[facility] HermannCARDIAC KHLKJXR7740-57-77 17:40:02082Jcjaajmq [facility] OJHSGTWBRV5491-21-30 17:40:00Positive *ABN*(07/26/16 11:40 AM)[facility] JPGABKUMLV1600-88-29 17:40:00<0.2[facility] OwzanugMJIWLWNYLS2357-24-46 17:40:00<0.2[facility] PvihxvgWCIVKRCLSN0840-50-99 17:40:00<0.2[facility] XiwacfzPGYUWVQVMH3880-32-24 17:40:00<0.2[facility] VabdrzfUNKGYQOEMJ7843-24-67 17:40:00Negative (07/26/16 11:40 AM)[facility] KvrrkdeJWDABQNDYZ7807-48-27 17:40:00 1:40 *ABN*(07/26/16 11:40 AM)[facility] HermannURINE XCSQ8034-53-11 17:40:0021 [facility] FbsrkzcRSCEACYHBT6167-48-84 14:00:001.11[facility] HermannHEMATOLOGY 2016-07-26 14:00:00 Test Item Value Reference Range Interpretation Comments PT (test code = PT) 14.5 s 12.0-14.7 [facility] YukubymHFPZJHFEEV2758-87-13 14:00:00Negative *NA*(07/26/16 8:00 AM) [facility] LivjgkbOSNQSQXPQZ7183-84-29 14:00:00Negative *NA*(07/26/16 8:00 AM) [facility] ExgdbbpJTVBATEFMR5683-62-13 14:00:00Negative *NA*(07/26/16 8:00 AM) [facility] FfcnlqiMMTESYHYNW8858-04-99 14:00:00Negative *NA*(07/26/16 8:00 AM) [facility] HermannCHEM IMJMA2704-00-37 10:42:0017[facility] HermannCHEM PANEL 2016-07-26 10:42:601721Yulakcso HermannCHEM MTZQC7913-24-15 10:42:000.5[facility] HermannCHEM YCIPW4869-09-08 10:42:000.3[facility] HermannCHEM SEIGA0818-04-82 10:42:0079[facility] HermannCHEM YLPHF3992-54-71 10:42:26709Jgwsfogw HermannCHEM AGERY9260-31-40 10:42:005.5[facility] HermannCHEM SYRNB3185-68-52 10:42:003.7 [facility] HermannCHEM JHLMX2167-21-92 10:42:001.8[facility] HermannCHEM PANEL 2016-07-26 10:42:002.1[facility] HlevxvsPIJNRIERWJ1249-68-68 10:42:00Present *ABN*(07/26/16 4:42 AM)[facility] QlmmcvzOZUABUDYSW5974-25-25 10:42:001+ *ABN*(07/26/16 4:42 AM)[facility] XrhvnvuUUNQIYFZRV3047-73-75 10:42:000.1[facility] XjgsfuqINIOTLAELU3210-29-57 10:42:00Moderate *ABN*(07/26/16 4:42 AM)[facility] OdyfeshJPCQJCKEMD6685-25-03 10:42:0042[facility] HermannURINE AND IAURQ4597-75-81 16:34:001[facility]annURINE AND XQKPX9133-19-60 16:34:004[facility] URINE AND QKHLK6977-50-66 16:34:00Negative (07/25/16 10:34 AM)[facility] URINE AND NCMIU3746-78-06 16:34:00Negative (07/25/16 10:34 AM)[facility] URINE AND ZPAGS6489-62-93 16:34:002[facility]annURINE AND EMSZO1608-14-09 16:34:006[facility]annURINE AND ASURL9907-60-40 16:34:002.0[facility] URINE AND QTGFF7557-13-47 16:34:00Negative (07/25/16 10:34 AM)[facility] URINE AND HSVCQ4348-19-28 16:34:00Negative *NA*(07/25/16 10:34 AM)[facility] URINE AND RYKOP8509-24-38 16:34:001.012[facility]annURINE AND HTUEZ6465-35-51 16:34:005.5[facility]annUR[facility] AND MUYZD2944-16-06 16:34:00Slight *ABN*(07/25/16 10:34 AM)[facility] AND PBWNY4911-69-86 16:34:00Dark Yellow *NA*(07/25/16 10:34 AM)[facility]annUR[facility] AND ZSFDO4700-19-31 16:34:009 [facility]annURINE WVNE3986-88-67 16:34:0030[facility]annURINE CHEM 2016-07-25 16:34:003.1[facility]annURINE WUKJ9936-37-43 16:34:86838.9[facility]annURINE EDVF2047-70-14 16:34:64557.00[facility] HermannCHEM JSCED0789-42-75 08:55:002.0[facility] HermannCHEM PZPAW8985-37-29 08:55:005.2[facility] CARDIAC ZCQVTPU4814-60-81 17:29:000.28[facility] HermannCARDIAC DAHJHBG2978-58-82 17:29:042338Eaojanns HermannCARDIAC ZDSLZCT9447-16-07 17:29:000.144[facility] HermannCARDIAC AQSWHYG2985-29-05 17:29:000.2[facility] HermannCARDIAC ENZYMES 2016-07-24 17:29:006.3[facility] HermannCARDIAC YDTUDEX8320-86-24 11:20:000.38 [facility]annCARDIAC SFKWLCW5487-69-55 11:20:000.173[facility] HermannCARDIAC JAHDQBA7960-48-04 11:20:000.2[facility] HermannCARDIAC CSQMESI8131-18-18 11:20:00 5.6[facility] HermannCHEM WJBVY7878-81-84 11:20:005.5[facility] HermannCARDIAC YSFEOGT4949-18-95 06:18:33259Mdjhejrz HermannCARDIAC ACDWTTV2286-56-79 04:59:27 0.57[facility] HermannCARDIAC RXTACXZ0630-77-13 10:22:38278Kojacwuh HermannCHEM YICUZ2043-23-99 10:22:002.1[facility] HermannCHEM YCKCA0158-86-74 10:22:98256 [facility]annCHEM SOBRD2498-92-13 10:22:0041[facility] HermannCHEM PANEL 2016-06-15 10:22:002.00[facility] HermannCHEM WMHOH9916-41-74 10:22:009.0[facility] HermannCHEM VGWFA1496-32-91 10:22:02505Ussgncin HermannCHEM SCAPI3132-93-65 10:22:0033[facility] HermannCHEM EXOUE8345-05-09 10:22:84337Koiuqsil HermannCHEM OKIHI5315-27-68 10:22:004.0[facility] HermannCHEM ZVCLJ5463-99-99 10:22:0032 [facility]annCHEM JKHEN3912-25-22 10:22:0013.0[facility] HermannCHEM PANEL 2016-06-15 10:22:004.6[facility] JoevjyyYAOLVUBPSA3320-40-26 10:22:003.68[facility] WhvmvqpCHDOMUCKRZ4680-37-55 10:22:009.9[facility] SvauvalLUMOORYRHV7327-94-21 10:22:00 Test Item Value Reference Range Interpretation Comments MCH (test code = MCH) 26.8 pg 27.0-31.0 [facility] BkqxihvXAYKXFWGUF8185-71-32 10:22:0034.2[facility] HermannHEMATOLOGY 2016-06-15 10:22:0078.3[facility] EakrwmeJXHXCDCYRP6674-28-91 10:22:0028.8[facility] BwgljelBSWLVUVEOW5382-04-52 10:22:27438Uvsbtkfz RtburllVZJKCHUBHR1318-90-27 10:22:009.5[facility] DdmfzpyFBNHNXRLFU8149-78-02 10:22:0015.3[facility] RGFTXGODPY6074-61-56 10:22:005.6[facility] GpazqmqCQGVVLNJNL0519-19-50 10:22:000.5 [facility] IdqlsdaSNTLCVYQRW3663-11-23 10:22:001+ *ABN*(06/15/16 4:22 AM)[facility] VhkwvzsLWEIGCQHJJ3574-98-64 10:22:000.1[facility] CoimxyoOXEWJIVEAN7929-89-46 10:22:0033.5[facility] DpgafkpHUUROWJOJG1578-77-65 10:22:0047.6[facility] YCIALTSZFQ8206-66-76 10:22:008.4[facility] MxuqmugIKDBVPLPOC1417-75-46 10:22:009.4 [facility] QyqkadqQDGJPJYPOO7760-71-25 10:22:002.6[facility]annHEMATOLOGY 2016-06-15 10:22:001.9[facility] WhsfhxrBIXJLDEYBO6571-70-97 10:22:001.1[facility] NiycutxFLVUOLJBQC3569-19-27 10:22:000.5[facility] HermannCHEM WBCXU3826-02-94 11:03:004.8[facility]annCHEM BIHKL9362-27-98 11:03:002.0[facility]annCHEM TTCNQ2888-54-37 11:03:0032[facility]annCHEM DILNR1825-41-50 11:03:15989 [facility]annCHEM NNAPS4141-87-74 11:03:004.4[facility]annCHEM PANEL 2016-06-14 11:03:0037[facility]annCHEM HVUEM8540-86-52 11:03:62012Ryjbszdx HermannCHEM TLBQZ2267-11-05 11:03:002.00[facility]annCHEM HODHO0878-41-49 11:03:19891Gyoceqxr HermannCHEM CURTS1576-55-00 11:03:008.7[facility]annCHEM VPUME1869-15-00 11:03:0032[facility]annCHEM WLAGP4308-83-44 11:03:0013.4 [facility] PvwezebEEVGHQXBZR0860-16-48 11:03:0010.3[facility]annHEMATOLOGY 2016-06-14 11:03:000.1[facility] WchahpkHHFORUMCJN2166-41-90 11:03:000.5[facility] MulgaryAESGNDKSYG7234-00-35 11:03:000.5[facility] BcshbttTVPOMXSIVC9960-21-34 11:03:002.1[facility] KvwzcjkDLTDTJOMAU7167-34-89 11:03:001.2[facility] Vin TNNLIHCUTX9627-97-63 11:03:001.9[facility] UojrhmbPJHLXHPTMT4941-98-30 11:03:00 42.5[facility] LutpazyYAFGDRERBS6128-05-27 11:03:0037.0[facility]annHEMATOLOGY 2016-06-14 11:03:009.0[facility] CdfiwxkVWURYTLCFF8251-38-38 11:03:009.8[facility] HnikfujGKGWKQRPCR1196-13-60 11:03:005.0[facility] UyyijarZRUBGGQKIO4673-35-68 11:03:003.57[facility] KkmjbmeELVJODMJOQ4532-78-70 11:03:009.4[facility] KFGLZKRZEL0098-73-86 11:03:0028.5[facility] SlpowizMZPGXZJCMI7908-41-84 11:03:00 183[facility] YlvyqrcPUNGZTGOGH6601-51-00 11:03:0079.9[facility]annHEMATOLOGY 2016-06-14 11:03:00 Test Item Value Reference Range Interpretation Comments MCH (test code = MCH) 26.3 pg 27.0-31.0 [facility] NufikvxRBOYIBZXVS2144-48-82 11:03:0033.0[facility]annHEMATOLOGY 2016-06-14 11:03:0015.9[facility] HermannURINE WTWH5397-05-42 10:26:006.9[facility]annURINE JYAQ4326-82-60 10:26:0019.30[facility]annURINE OBQO0491-39-99 10:26:21841.1[facility] SymutemVBULNGVLKU9948-75-18 09:20:009.7[facility] GSOBPBNDOT4288-23-13 09:20:36837Igtznwcb SylistjBVZLWXLNAQ2342-21-20 09:20:00 15.9[facility] AhopklnUZDBXYFSSQ4666-53-94 09:20:0079.3[facility]annHEMATOLOGY 2016-06-13 09:20:0033.0[facility] JqxhrdfOBBGACFLWQ3267-75-64 09:20:00 Test Item Value Reference Range Interpretation Comments MCH (test code = MCH) 26.2 pg 27.0-31.0 [facility] QuqgnciIQMFLAFLKP5854-84-18 09:20:0029.4[facility]annHEMATOLOGY 2016-06-13 09:20:009.7[facility] ClgabpoNXCHLIYRWZ1927-42-37 09:20:003.70[facility] QmtxjynTZNNWKZRVU1033-26-13 09:20:005.7[facility] KdkuyaiPPCLVCIMTR2304-39-62 09:20:000.1[facility] GdbwlbwZPTZCQBCDO7482-43-78 09:20:002.2[facility] YMYGOOEPFI9799-47-40 09:20:000.5[facility] MeubcskGJCNLMCIUW5368-27-65 09:20:000.5 [facility] OlnbgkqTVKVLEEFLC5870-02-88 09:20:001.1[facility]annHEMATOLOGY 2016-06-13 09:20:002.3[facility] ZjcnhypHUZYTIOEKV8923-59-02 09:20:009.5[facility] BwnxifyAUEYQVPNZK0173-35-63 09:20:009.0[facility] OajzyrkIEJLJQDDWF0427-95-07 09:20:0038.9[facility] JxvaecpHGCQRDOTGE5186-70-49 09:20:0041.5[facility] CHEM JQLJX7622-99-98 06:34:001.7[facility] HermannCHEM XSZMI1189-48-07 06:34:004.2 [facility] CuudfmwIZZYKZALCIPY5673-25-52 06:34:0014.3[facility] HermannELECTROLYTES 2016-06-13 06:34:0041[facility] GuniimmQRWRLMBHIKXB6858-98-14 06:34:28916Dgxdivzh JqyjqjhBWZNZAZFUWPR3957-15-48 06:34:008.5[facility] YxtrkeyEGDQAGHPEYGB2392-44-22 06:34:0032[facility] MeudhwuFHVUNQGUUCBF9411-68-17 06:34:77177Fgfayrle Vin QQFCKWFQKMRN2391-82-39 06:34:0037[facility] GuzclpnURWUJUFGRUWJ0005-00-83 06:34:00 1.63[facility] OfvlhkrLRLEBQQWEBYY4051-92-52 06:34:004.3[facility] VROMAKGWKQPX4419-88-67 06:34:50707Idtndaxq HermannCHEM BPVIN2198-63-15 16:21:00 48.0[facility] EqozfdjSXGUKNNIAI1458-36-73 14:56:001:40 *ABN*(06/11/16 8:56 AM) [facility] SypmzsgIDVVYEBMEL1143-26-28 14:56:00Negative *NA*(06/11/16 8:56 AM) [facility] JxpzsfbKGRMFZXQHG7050-50-39 14:56:00Negative *NA*(06/11/16 8:56 AM) [facility] SklclioCAQXEUMYQZ0779-46-11 14:56:00Negative *NA*(06/11/16 8:56 AM) [facility] InbjkffLDOJFPANPP4095-93-42 14:56:00Negative *NA*(06/11/16 8:56 AM) [facility] CxkyslgFBTTCXEPZB8327-79-08 14:56:00Negative *NA*(06/11/16 8:56 AM) [facility] PsanqpkRBIACKUWNH6078-14-72 14:56:00Positive *ABN*(06/11/16 8:56 AM) [facility]annCHEM ECFBF8399-30-79 10:42:000.1[facility]annCHEM PANEL 2016-06-11 10:42:005.2[facility]annCHEM SWDHR2750-81-50 10:42:001.6[facility]annCHEM ITIDD6534-29-28 10:42:0020[facility]annCHEM CHUQH9333-24-83 10:42:003.6[facility] HermannCHEM ZCPEQ7775-76-95 10:42:000.4[facility]annCHEM QIEUH4932-61-00 10:42:0074[facility] HermannCHEM RMAXX8775-35-26 10:42:0014 [facility]annCHEM SKRDR0495-48-59 10:42:0013[facility] HermannHEMATOLOGY 2016-06-11 10:42:001.06[facility] BknvmftVVBCIUGWDH0203-90-01 10:42:00 Test Item Value Reference Range Interpretation Comments PT (test code = PT) 14.0 s 12.0-14.7 [facility] XjumxqnZDAJCEIFBC6970-30-56 10:42:00 Test Item Value Reference Range Interpretation Comments PTT (test code = PTT) 36.4 s 22.9-35.8 [facility]annSPECIAL CLRREEHVL2008-51-62 10:42:0010.5[facility] HermannCARDIAC PMWTHEE4676-94-28 02:08:001.8[facility] HermannCARDIAC NSZFGLK2524-05-41 02:08:00 2.9[facility] HermannCARDIAC HZPNLTX4423-90-64 02:08:000.061[facility] CARDIAC RRALWJT3988-42-10 02:08:23479Ahbgqwyp HermannCARDIAC WCDKMVG8301-23-07 02:08:00<0.02[facility] HermannCHEM EFTAD1616-61-18 02:08:000.2[facility] CHEM KEJRX0754-91-67 02:08:000.1[facility] HermannCHEM UFMLW4145-16-74 02:08:000.1 [facility]annCHEM QIDJF7102-66-97 02:08:005.7[facility] HermannCHEM PANEL 2016-06-11 02:08:000.5[facility]annCHEM ICHWD4391-88-38 02:08:001.8[facility]annCHEM XZEQT5033-42-39 02:08:003.9[facility]annCHEM KQLXW6145-17-56 02:08:0099[facility]annCHEM LNQMZ9267-56-30 02:08:0021[facility]annCHEM GAMMK6829-51-07 02:08:0017[facility] HermannDRUG YNJHVT4138-70-27 02:08:00See Note *NA*(06/10/16 8:08 PM)[facility]annDRUG HZDMUP7697-03-73 02:08:00Negative *NA*(06/10/16 8:08 PM)[facility] HermannDRUG IJQQEZ5795-99-58 02:08:00Negative *NA*(06/10/16 8:08 PM)[facility]annDRUG KOYJLX3681-31-33 02:08:00Negative *NA*(06/10/16 8:08 PM)[facility]annDRUG CZUQZJ4497-57-94 02:08:00Negative *NA*(06/10/16 8:08 PM)[facility] HermannDRUG WCRIMM6460-53-46 02:08:00Negative *NA*(06/10/16 8:08 PM)[facility] HermannDRUG NHBSVB1114-66-52 02:08:00Negative *NA*(06/10/16 8:08 PM)[facility]annDRUG PQDSWJ2668-83-24 02:08:00Negative *NA*(06/10/16 8:08 PM)[facility] HermannDRUG FVTENC6762-62-40 02:08:00Negative *NA*(06/10/16 8:08 PM)[facility]annDRUG PFJEPG4532-57-28 02:08:00Negative *NA*(06/10/16 8:08 PM)[facility] JygigpwYLHKOB9210-04-80 02:08:0075[facility] BnrpkxwGARYRX4988-17-99 02:08:0027[facility] LpmnssiIRXIKW0190-42-55 02:08:77254 [facility] YotbxplNZEEMX1852-68-69 02:08:35156Fycjsamk LhwtystCXNABG9621-25-66 02:08:004.29[facility] MmbajcjNKBGXG9826-15-94 02:08:0031[facility]annURINE AND HKAMN7748-50-03 02:08:006.0[facility]UR[facility] AND TGNVF3061-53-35 02:08:00 Negative (06/10/16 8:08 PM)[facility] AND XBMUE2681-96-51 02:08:00 Trace *ABN*(06/10/16 8:08 PM)[facility]annURINE AND RWUOW4369-43-43 02:08:00 Negative *NA*(06/10/16 8:08 PM)[facility]annUR[facility] AND XUVNE9444-12-46 02:08:004[facility]URINE AND FGQLX8031-26-77 02:08:005[facility] URINE AND AASHW1326-64-54 02:08:00Small *ABN*(06/10/16 8:08 PM)[facility] URINE AND AZVVV6718-16-85 02:08:001[facility]annURINE AND XFMKH5770-43-10 02:08:001.009[facility]annUR[facility] AND UAGCH4164-95-68 02:08:00Yellow *NA*(06/10/16 8:08 PM)[facility] AND QJVAD0661-31-71 02:08:00Clear (06/10/16 8:08 PM)[facility]annURINE PWAU0315-57-03 02:08:00Negative (06/10/16 8:08 PM)[facility]annURINE LIKS1461-21-08 02:08:91387.4[facility]annURINE XDDE5308-59-51 02:08:005.4[facility]annURINE QYSQ1226-90-55 02:08:0069.80[facility] HermannCARDIAC AJKPIMU4404-96-09 16:53:800116Jmfelezi HermannCARDIAC QNNWBXD5618-59-80 16:53:00<0.02[facility] HermannCHEM PANEL 2014-06-26 13:02:000.9[facility] ZpokeqtVMVLSCNUFD8718-16-60 12:29:4410[facility] DqibmsmNEKLPXVUOXBBN7787-69-21 11:21:271[facility] HermannCHEM MVBMC2854-86-09 11:21:003.2[facility] HermannCHEM TRBLB7478-24-04 11:21:006.6[facility] HermannCHEM XRHLZ7564-26-76 11:21:000.6[facility] HermannCHEM BPCKR3653-09-94 11:21:0059 [facility]annCHEM QCGXO0320-49-67 11:21:0011[facility] HermannCHEM PANEL 2014-06-26 11:21:0017[facility] HermannCHEM MMSBY2270-30-13 11:21:0099[facility] HermannCHEM PVABL7454-74-94 11:21:63796Uimsshlf HermannCHEM PYMCT5753-50-10 11:21:003.4[facility] HermannCHEM NVBQF6804-99-33 11:21:0011[facility] HermannCHEM ISAVC5805-01-49 11:21:000.8[facility] HermannCHEM WETJP3103-72-69 11:21:02407 [facility]annCHEM CDCYC7070-55-30 11:21:0094[facility] HermannCHEM PANEL 2014-06-26 11:21:009.1[facility] HermannCHEM CEOWE0723-76-87 11:21:0024[facility] HermannCHEM BOQWK0669-28-14 11:21:000.9[facility] HermannCHEM NHQSF0715-34-63 11:21:003.4[facility] HermannCHEM PDLFN6874-91-62 11:21:0014[facility]annCHEM VSCQQ3507-48-01 11:21:0019.4[facility] HermannCHEM GRNKG2572-90-26 11:21:0081 [facility] VmvkgdbLSREBXPEKN4290-71-83 11:21:000.0[facility] HermannHEMATOLOGY 2014-06-26 11:21:001+ *ABN*(06/26/14 5:21 AM)[facility] ZqggdgaLSOHYMTEYT8990-94-58 11:21:000.6[facility] QnzrpdeHTANRDNBSG3898-17-73 11:21:000.1[facility] KLDMHLEVCD5856-80-08 11:21:002.5[facility] AveqddtNLDBKXFQBN5447-71-30 11:21:00 63.3[facility] AreiwxhMVMQSRBEAO2435-76-57 11:21:005.6[facility] HermannHEMATOLOGY 2014-06-26 11:21:000.0[facility] GpnerqbQPROTASYUD4675-41-10 11:21:000.9[facility] MwxcxjaFIZDPIHRXH8617-21-32 11:21:007.0[facility] RkappzyBFNQGQNNRL4171-79-28 11:21:0028.8[facility] CctrymqOMVDDNKWJM8656-86-40 11:21:008.8[facility] YIKTHJBMDN7795-78-81 11:21:005.19[facility] VnnfkudESOUBMNNNX8456-05-29 11:21:00 14.4[facility] OxmgcapFSWGOTERDS9869-28-81 11:21:0043.1[facility] HermannHEMATOLOGY 2014-06-26 11:21:0083.1[facility] LmqirviGUGHNHOQBU8712-63-73 11:21:00 Test Item Value Reference Range Interpretation Comments MCH (test code = MCH) 27.8 pg 27.0-31.0 [facility] IftzbqiHABZEDYQCV1819-63-14 11:21:0013.1[facility] HermannHEMATOLOGY 2014-06-26 11:21:0033.5[facility] HmivlwzMHACZLPVSX7063-15-54 11:21:65125Glxuktgf TetceliSPKFZXLMUJ8638-85-92 11:21:0010.4[facility] BzmydujSOLTJEBOGR1665-24-92 04:48:55Performed (04/14/2013 23:48:55)[facility] KowobfqCTYEDXQZEZ3489-56-74 04:48:55Negative *NA*(04/14/2013 23:48:55)[facility] NycdangUSXMNCPYIM0585-63-80 04:48:55Trace *ABN*(04/14/2013 23:48:55)[facility] RhhadilBFJBKNHHRU1085-78-91 04:48:55Negative (04/14/2013 23:48:55)[facility] FgnshorYZOFCRZUZP0140-81-80 04:48:550.2[facility] MzrhpygEWINVHSBNN0364-73-29 04:48:55Negative (04/14/2013 23:48:55)[facility] VmrappgOXGGPYQZKO4494-23-00 04:48:55Negative (04/14/2013 23:48:55)[facility] FasrvdgKSKWFLWTCA7972-15-72 04:48:55Clear (04/14/2013 23:48:55)[facility] VkgxiujSWXEAKNOBK1359-64-43 04:48:55Yellow *NA*(04/14/2013 23:48:55)[facility] RexgabgLPCLWDJSZX2661-51-57 04:48:55 Test Item Value Reference Range Interpretation Comments UA pH (test code = UA pH) 7.0 1 5.0-8.0 N [facility] VcakxlwCIOJYPAWZV4063-50-44 04:48:55 Test Item Value Reference Range Interpretation Comments UA Spec Grav (test code = UA Spec 1.[address] [facility] DdgubbnBZSBVWFJFH2320-61-77 04:48:55Trace *ABN*(04/14/2013 23:48:55) [facility]cr[facility]lcQPROIFOFU4697-60-46 04:28:00Negative *NA*(04/14/2013 23:28:00) [facility] EsmcrnfCTAXUYPIA1289-12-80 04:28:01204Jiontzet HermannCHEMISTRY 2013-04-15 04:28:004.1[facility] OsfamfeYYNZPLFWK2537-80-72 04:28:0010.5[facility] RdmdpjpFTABBTVRZ6242-15-40 04:28:006[facility] YbmyppnNXTCOJBED3757-39-43 04:28:00 0.7[facility] VtsyftwSLKHCPFFM5221-40-22 04:28:49686Tvfiehdx HermannCHEMISTRY 2013-04-15 04:28:002.9[facility] ZqtcnwnXTCVWQHHG8174-29-53 04:28:0020[facility] KxhkfubDRUXIFDXC7277-86-74 04:28:000.5[facility] VhsushrICVHWVGPU0651-85-47 04:28:0089[facility] YclpdxeNKKQRCDIH4757-51-19 04:28:0011[facility] XKPMMTAJE6470-66-85 04:28:000.5[facility] ZgjkvyjOCKUJOTVH7608-27-10 04:28:003 [facility] GygsfhqBCRYMHIDW7428-20-41 04:28:17181Qsbvvhsc HermannCHEMISTRY 2013-04-15 04:28:007.0[facility] QbrqkxbPNNQELCIP3860-20-64 04:28:008.7[facility] ZarnrvvMBOAXKIRW2335-12-93 04:28:0029[facility] LteqafdJMZCBHAPB0113-09-23 04:28:86776Yvwyizjx KobpqnoQFUZDUJMD9634-20-89 04:28:003.5[facility] BSZPZVZXI4636-49-64 04:28:42107Drfxhdei XhqcnpjBSOTPPYSAZ4896-03-49 04:28:00 Test Item Value Reference Range Interpretation Comments PROTIME (test code = PROTIME) 12.1 s 12.0-14.[address] [facility] FydojqpUAZFNRPSYG1252-97-72 04:28:00 Test Item Value Reference Range Interpretation Comments aPTT (test code = aPTT) 39.0 s 22.9-35.8 H [facility] LypabseEDVZYMYYRQ1872-27-38 04:28:000.90[facility] HermannHEMATOLOGY 2013-04-15 04:28:00 Test Item Value Reference Range Interpretation Comments MCH (test code = MCH) 29.4 pg 27.0-31.0 N [facility] NagpndoEDFVPXIGUR3874-18-59 04:28:0086.1[facility] HermannHEMATOLOGY 2013-04-15 04:28:0029.4[facility] ZnarryaYOAOXTLJMH5196-62-25 04:28:0014.0[facility] GyfudmwUBNDMRUTRY6816-73-74 04:28:006.2[facility] TmraftoQGHYHUMKSM3948-90-84 04:28:60513Cgtapnpz YrfhodfVQKDCLXZEO9563-16-46 04:28:0034.1[facility] SXCFEMFSIV4442-16-98 04:28:003.41[facility] QxpgvllDNXYYNOCBX3403-13-03 04:28:00 10.0[facility] HzltrnfWLLAQSVPBR1115-52-83 04:28:0010.1[facility] HermannHEMATOLOGY 2013-04-15 04:28:004.4[facility] EubcgebRTAMCABMTS6579-52-00 04:28:000.7[facility] MrwchcjWIMXYALHBH2979-48-89 04:28:0070.7[facility] RftydzpKAPLIAOWVK4480-30-88 04:28:000.3[facility] ZugbwobXZBZVQAQEI5137-50-99 04:28:001.2[facility] KTKHQZDDIY4425-43-74 04:28:004.5[facility] RttjffoRIPCSPKTNQ8978-20-69 04:28:004.1 [facility] DffwfhlCUZGSPNJSQ7568-96-05 04:28:0020.0[facility] HermannHEMATOLOGY 2013-04-15 04:28:000.0[facility] ErrrwwhIEABVFBOGY4597-27-16 04:28:000.3[facility] HermannBEDSIDE GLUCOSE YJOLTNB9725-29-33 01:12:11661Ulumfwgb HermannURINALYSIS 2012-03-14 23:40:00Trace *ABN*(03/14/2012 18:40:00)[facility] HermannURINALYSIS 2012-03-14 23:40:00 Test Item Value Reference Range Interpretation Comments UA pH (test code = UA pH) 6.0 1 5.0-8.[address] [facility] FgfqkgsCRDNSYRMML3469-72-94 23:40:00>=80 mg/dL *NA*(03/14/2012 18:40:00)[facility] HospitalNyghuddRTBPHAKZDZ6978-92-14 23:40:00>=1000 mg/dL *ABN*(03/14/2012 18:40:00)[facility] AfuawlqLJBUDOKZQY5705-18-75 23:40:00Negative (03/14/2012 18:40:00)[facility] WexxsdjXJOQHUBVMG1353-44-46 23:40:00Negative (03/14/2012 18:40:00)[facility] FpgpdwiTAWOFVJYUS3893-51-73 23:40[facility].2[facility] ZsduovwHVNPBXFMDV3131-15-14 23:40:00Negative (03/14/2012 18:40:00)[facility] HospitalQrdrtjmKRFJTGKAWM6524-39-09 23:40:00Negative *NA*(03/14/2012 18:40:00)[facility] HospitalZjwfnkfLBJFRQCKKK6546-82-31 23:40:00Clear (03/14/2012 18:40:00)[facility] WLOGLTKFKT6074-06-68 23:40:00Yellow *NA*(03/14/2012 18:40:00)[facility] XSMRFNYFOJ8700-32-19 23:40:00>=1.030 *ABN*(03/14/2012 18:40:00)[facility] HospitalAclmwpeWNASKFRMSN2980-46-63 23:40:00Occasional /LPF (03/14/2012 18:40:00) [facility] HospitalFcmyciqLZPMGDIOYI9450-14-46 23:40:003-5 /HPF (03/14/2012 18:40:00) [facility] HospitalLnvwadwDXUWAVTBHV3644-41-24 23:40:00Occasional /HPF (03/14/2012 18:40:00)[facility] HospitalYkpwvgqCEWTHJUHU1635-64-07 22:50:00Negative *NA*(03/14/2012 17:50:00)[facility] HospitalIqdhajqBDAECVBIC9703-01-11 22:50:0045[facility] HermannCHEMISTRY 2012-03-14 22:50:001.2[facility] WzwkhjjZPGMUWWAN9750-08-89 22:50:003.8[facility] CeymeimMNHWIEPXP7108-83-80 22:50:0021[facility] GryalgkKDAJYTLLV7553-81-46 22:50:0016.8[facility] PgcgspfOLMYCRYCK4738-62-28 22:50:001.1[facility] SAYKKJYPT0546-29-02 22:50:008.2[facility] RnesvnjEVOGMDMIP1628-17-53 22:50:003.8 [facility] ExdyiadUJDSWPVRF7163-71-76 22:50:000.7[facility] HermannCHEMISTRY 2012-03-14 22:50:44045Vliyjkrz PdggurlNRWRZYSWZ7456-76-37 22:50:0099[facility] RdbwmroGUMPXLDSA4422-03-28 22:50:0027[facility] MdkxfufTRPGEILDQ8084-45-77 22:50:26213Srnnyqmu KpmwrrqDFUWAWGKM2051-50-14 22:50:0015[facility] MTLVQIPAB4825-64-61 22:50:0024[facility] DwtrqzaDSLLLQZTI2125-81-40 22:50:0020 [facility] YjfovewDILNGILWY1549-18-30 22:50:0067[facility] HermannCHEMISTRY 2012-03-14 22:50:004.4[facility] NpnomtvOVMLDFIQI5176-51-74 22:50:009.9[facility] OytadlrTHKXTWDZNV8125-89-13 22:50:0011.8[facility] RunxouhWWLTRHJTBU4433-20-09 22:50:0035.9[facility] XsnbuqnKSILBKNZQW7324-67-10 22:50:00 Test Item Value Reference Range Interpretation Comments MCH (test code = MCH) 31.2 pg 27.0-31.0 H [facility] TzvrjgjZUQEQJSFDD9671-90-27 22:50:04936Yswzbosz HermannHEMATOLOGY 2012-03-14 22:50:0013.1[facility] KzsijwhTQZUWYMLPR8022-37-75 22:50:0040.7[facility] SspqnuyXZAYVVQVET6258-82-25 22:50:0014.6[facility] OsfttyxHADQHSOVFL7237-09-34 22:50:0087.0[facility] MivparyYUUIOUUZMK6714-68-07 22:50:0011.7[facility] JBORNMLQFK9832-84-34 22:50:004.68[facility] EqyekvdBXYZTAGXWR2436-02-13 22:50:00 0.0[facility] LuwqhsaJOOUFXHPKR8988-00-73 22:50:000.2[facility] HermannHEMATOLOGY 2012-03-14 22:50:000.0[facility] QmgztpsUFAXPXJRUR7170-40-53 22:50:000.4[facility] IyjrgrmUMJPHVKRJC9019-21-24 22:50:0010.6[facility] KsldhmaFTQUSZQVLD0203-77-12 22:50:000.7[facility] UpltptpMGFQQPJICH9915-73-49 22:50:003.4[facility] HZSSUTOCIR3650-01-75 22:50:00Normal (03/14/2012 17:50:00)[facility] AWQXGKNVFC4601-37-49 22:50:006.0[facility] UpflzmqCWTOYCDFCJ6446-75-26 22:50:000.0 [facility] EgsgrnuMINGDEOUZL8720-36-54 22:50:0090.4[facility] HermannHEMATOLOGY 2012-03-14 22:50:00Normal (03/14/2012 17:50:00)[facility] HermannBEDSIDE GLUCOSE DWAFRLM6838-65-87 23:43:38439Hjomejmc HermannBEDSIDE GLUCOSE TOYKQJY1680-15-25 17:40:24667Qhbzsleu HermannBEDSIDE GLUCOSE IDZPKQV2654-50-53 13:34:60333Aydoyqcg EwtrrkjFDPYEYLOA7131-92-90 00:00:00Negative (11/28/2011 19:00:00)[facility] HhumltvJBIQZQWROX5838-45-43 00:00:00Performed (11/28/2011 19:00:00)[facility] MbabbeiCHZIQSQGYS0861-39-93 00:00:00Occasional /LPF (11/28/2011 19:00:00) [facility] HospitalBwtjzkiXFSSSMNRAO4567-51-56 00:00:00None Seen (11/28/2011 19:00:00) [facility] HospitalXfycqgqBQDOSNSSHI0129-91-71 00:00:00Negative mg/dL (11/28/2011 19:00:00)[facility] HospitalLaxkafuTXEWFRTSTM3746-23-79 00:00:00 Test Item Value Reference Range Interpretation Comments UA pH (test code = UA pH) 7.0 1 5.0-8.[address] [facility] WwqajhgPKFFYQRVGJ2938-21-43 00:00:00 Test Item Value Reference Range Interpretation Comments UA Spec Grav (test code = UA Spec 1.020 1 N Grav) [facility] HospitalPjuwvfnTLXIBDRNLY9978-04-77 00:00:00Clear (11/28/2011 19:00:00)[facility] HospitalFomiipmNXIJZSDIVT0828-21-21 00:00:00Yellow *NA*(11/28/2011 19:00:00)[facility] HospitalMplpiphUFNWGFTMOI3158-02-57 00:00:000.2[facility] UaitrdnJDPGUYTUQH6816-00-25 00:00:00Negative (11/28/2011 19:00:00)[facility] HospitalBbyeuyzDLSIZQWCKO7583-23-95 00:00:00Negative *NA*(11/28/2011 19:00:00)[facility] HospitalTktkusbQFDKOFTFDF4146-88-05 00:00:00>=80 mg/dL *ABN*(11/28/2011 19:00:00)[facility] HospitalannURINALYSIS 2011-11-29 00:00:00>=1000 mg/dL *ABN*(11/28/2011 19:00:00)[facility] XVAJOCIZST2272-51-86 00:00:00Negative (11/28/2011 19:00:00)[facility] LHRYEXTBPT2667-80-18 00:00:00Negative (11/28/2011 19:00:00)[facility] BBDTHGQFD8200-22-26 20:41:0060[facility] YpxzwljCGRWDATMB3661-91-06 20:41:0041 [facility] GbjvsrsKCNMHARND5189-84-23 20:41:007.45[facility] HermannCHEMISTRY 2011-11-28 20:41:0037.0[facility] ZmjizprCXZXFQLHG3837-91-90 20:41:0092.0[facility] JcagjbeAHDMPHBLD3088-85-38 20:41:004[facility] LbrplpfLXOCAVXNY7664-34-96 20:41:00 28.5[facility] XpiazonJWNGFQQEN8285-55-59 20:00:001.6[facility] HermannCHEMISTRY 2011-11-28 20:00:34285Mfayyzpm TbnyazjAHWNEMKZS6778-81-52 20:00:004.2[facility] BzolaadFISUCHZWI6235-94-86 20:00:0023[facility] XzfueqmKRAMADPWK9886-77-94 20:00:0098[facility] QbqpdhwZVQEOPBVC8307-63-55 20:00:003.8[facility] LENVCJUBC7553-60-71 20:00:52437Obdntcnl SlyerdkQURCGPEIH0411-27-69 20:00:000.7 [facility] ZrpvzdtEJEIDEKJQ7734-87-40 20:00:009[facility] UyjtwkkCBNOXTZLZ2405-43-40 20:00:28579Txnrpxjm LhkaainDFBBZBUOP5391-92-16 20:00:0013[facility] CJUQDMKMZ1831-13-17 20:00:0020.8[facility] PklxrheYOKBRHOCB6668-60-94 20:00:009.3 [facility] OvkmfiwXSHPUFDKF1429-91-02 20:00:006.7[facility] HermannCHEMISTRY 2011-11-28 20:00:001.7[facility] FtedaacATBWGABTS8172-44-13 20:00:002.5[facility] NxhowacLHQRSMCXS6122-55-66 20:00:0018[facility] NodxbebRVOEITBHP9409-36-79 20:00:0062[facility] BtbxzoeQSWHDVTOZ9461-40-34 20:00:0032[facility] JGKDKTHNF7843-48-52 20:00:000.7[facility] ZkzqfybTCCQIIFLTX1530-89-22 20:00:001+ *ABN*(11/28/2011 15:00:00)[facility] TjkgmwrMUSCICZNGE4761-40-96 20:00:000.1 [facility] EoyyybzHJRRZXAOYH9849-87-65 20:00:000.0[facility] HermannHEMATOLOGY 2011-11-28 20:00:000.0[facility] IqcenpxYIGIKBKDYO7416-94-16 20:00:00Slight *ABN*(11/28/2011 15:00:00)[facility] BfylzheNYSNFJCOOJ5031-73-43 20:00:00Slight *ABN*(11/28/2011 15:00:00)[facility] YbdzpnaBRXBWZPWSX1358-75-14 20:00:005.7 [facility] YmzsdhcNSYFAEFYEP4606-86-17 20:00:000.8[facility] HermannHEMATOLOGY 2011-11-28 20:00:000.2[facility] VghxjptLAXGVPJTLA7489-19-71 20:00:000.0[facility] HkojxnpLVSHOPEEFA0177-11-17 20:00:001.9[facility] CvumyxcHEHHHLJBOS9700-44-68 20:00:0086.2[facility] MnnkzsmSUKSYIIKBQ0071-14-74 20:00:0011.7[facility] NJRBSKRUXX7147-54-48 20:00:0010.8[facility] UirfugyLOFBKLSXIA6603-28-62 20:00:00 161[facility] EynvkuaDSOPYVVGWG1592-33-02 20:00:0035.6[facility] HermannHEMATOLOGY 2011-11-28 20:00:0012.4[facility] CgtopasHNEGUQWUZX3192-33-08 20:00:00 Test Item Value Reference Range Interpretation Comments MCH (test code = MCH) 30.7 pg 27.0-31.0 N [facility] VrqgflnCWZJRIMFGP8265-70-82 20:00:0086.1[facility] HermannHEMATOLOGY 2011-11-28 20:00:0033.6[facility] OlvcbbaMQCGKQKJTM4578-08-49 20:00:0012.0[facility] WscmipdFPXGNLQEYU1362-47-58 20:00:003.90[facility] HfdbtvrWGMOGPIUAH0154-67-48 20:00:006.6[facility] IuiqtbvWCBDLLKOS6281-15-45 19:51:00See Note 5*NA*(11/28/2011 14:51:00)[facility] BhaqiffZBGVIPNAA6821-76-03 19:51:00Negative *NA*(11/28/2011 14:51:00)[facility] FbrdnayNZASKRPIQ3619-63-34 19:51:00Negative *NA*(11/28/2011 14:51:00)[facility] HvsadgqHKMJDFDJI2055-60-56 19:51:00Negative *NA*(11/28/2011 14:51:00)[facility] RkpsviqZHONRUVLH5267-64-04 19:51:00Negative *NA*(11/28/2011 14:51:00)[facility] XhlhesiONUTIBOEY5272-05-37 19:51:00Negative *NA*(11/28/2011 14:51:00)[facility] BkusidxKDGRKTOCF8009-99-07 19:51:00Negative *NA*(11/28/2011 14:51:00)[facility] YfrnaarAWKOMHXLI2413-97-63 19:51:00Negative *NA*(11/28/2011 14:51:00)[facility]ann[facility] GLUCOSE SPDWSIF1509-97-48 16:20:69718Zxhmahoo GghxulaLPCDRKNDU1771-99-50 15:30:00Negative (09/18/2011 10:30:00)[facility] WtpbrnrPCCDDYHNOZ6063-20-03 15:30:00None Seen (09/18/2011 10:30:00)[facility] BydgueqJNYHEATXVD5575-02-17 15:30:00None Seen (09/18/2011 10:30:00)[facility] QqhrrdrAONOEUCJBP2700-44-58 15:30:00None Seen (09/18/2011 10:30:00)[facility] KuvzvtxBIMDQVTFGS8513-62-83 15:30:00Few /HPF *ABN*(09/18/2011 10:30:00)[facility] GjkmznpOIXORNJTXM3258-10-83 15:30:00Performed (09/18/2011 10:30:00)[facility] CymikugZARHWOKBCC4333-49-83 15:30:00Rare /LPF (09/18/2011 10:30:00)[facility]ct[facility]pFJTSWRLWHL2559-39-46 15:30:0015 mg/dL *ABN*(09/18/2011 10:30:00)[facility] HospitalIoxqjhjGVKACVBXSP2445-95-85 15:30:00>=1000 mg/dL *ABN*(09/18/2011 10:30:00) [facility] FpgonmlMNBBUDAKCE8138-08-91 15:30:00Trace *ABN*(09/18/2011 10:30:00) [facility]MjkgdjnLMLXNKSLYV1367-31-59 15:30:000.2[facility]annURINALYSIS 2011-09-18 15:30:00Negative (09/18/2011 10:30:00)[facility]ann[facility] 2011-09-18 15:30:00Negative *NA*(09/18/2011 10:30:00)[facility]ann[facility] 2011-09-18 15:30:00Negative (09/18/2011 10:30:00)[facility] 2011-09-18 15:30:00Negative (09/18/2011 10:30:00)[facility] 2011-09-18 15:30:00 Test Item Value Reference Range Interpretation Comments UA pH (test code = UA pH) 7.5 1 5.0-8.0 N [facility]KdcnkszIHPLIVCXME7270-11-20 15:30:00 Test Item Value Reference Range Interpretation Comments UA Spec Grav (test code = UA Spec 1.[address] [facility] HrcrehgDDQLBEHELW8592-76-58 15:30:00Slight Cloudy (09/18/2011 10:30:00) [facility] HospitalZwuvwpjRTHQQMOBTW1787-80-60 15:30:00Yellow *NA*(09/18/2011 10:30:00) [facility] QixyzidOMXNQMVUM6873-20-68 14:07:004.4[facility] HermannCHEMISTRY 2011-09-18 14:07:001.6[facility] HermannBEDSIDE GLUCOSE EFYSFVK1162-00-91 14:01:00 >400[facility] CtkaijtQONIHTUPI2991-74-81 13:52:0024[facility] HermannCHEMISTRY 2011-09-18 13:52:0032.0[facility] LgdwiakSDTDMKLPY6746-23-11 13:52:0044[facility] VngsiaxTKNQUBCNK7378-24-70 13:52:007[facility] SuoqslwSAJGDYDHG9693-67-50 13:52:00 48.0[facility] AuojutbSULPLENIT4838-17-73 13:52:0037.0[facility] HermannCHEMISTRY 2011-09-18 13:52:007.47[facility] TvsatxmTDACZZBHN7956-15-57 13:52:0010.1[facility] BbesergGJWISFYAO1074-84-07 13:52:0092[facility] CqyaflwKTXAXCXRM0568-96-80 13:52:0030[facility] JdwmflaGLJXYTSQH3571-31-61 13:52:003.5[facility] VXTLROMOV6205-70-89 13:52:85418Jblrzoyz AwaqjteMSZIKODOI8366-63-16 13:52:001.3 [facility] ZlxxhqaUUCKPZUUV0334-56-22 13:52:18395Vefshbjo HermannCHEMISTRY 2011-09-18 13:52:0017[facility] IvnuiyjCJSMFBOEO5154-74-93 13:52:0014.5[facility] QypzzpbVYSFIRAVOU0384-36-50 13:52:0012.0[facility] FpeqlylGUWGWEHUXL4826-46-38 13:52:58225Zcphqrzh EwyjasjIUGCBJLGYX5000-01-05 13:52:0033.7[facility] DSRCOFOFSC6411-61-36 13:52:00 Test Item Value Reference Range Interpretation Comments MCH (test code = MCH) 28.5 pg 27.0-31.0 N [facility] FrvtyasWMHPRTRWDJ5214-92-38 13:52:0015.1[facility] HermannHEMATOLOGY 2011-09-18 13:52:0084.6[facility] TxoonvhTHYGBHTTWN5411-49-39 13:52:0036.4[facility] XkpwdrbSNZKDKYXVE6998-61-97 13:52:0012.3[facility] VjwtmpiOYYNZIUWWY9269-65-52 13:52:004.30[facility] EbcrlcmLABHXFNBWM6220-73-47 13:52:0011.7[facility] UHDBBTGYPT1099-28-42 13:52:002.9[facility] QumqhxgDOTJLAMEVN1703-07-42 13:52:000.2 [facility] NkhsqegPCLLTNTCES3305-32-40 13:52:000.0[facility] HermannHEMATOLOGY 2011-09-18 13:52:000.0[facility] WidddnvYRWXHPRTCX4174-16-36 13:52:000.3[facility] MdjnhbkYCTESJXEZY4649-65-36 13:52:0092.0[facility] GiuuhvvJJFAFAFXKB0160-82-66 13:52:004.9[facility] YzfjnqmWQYANVEHUA7477-25-59 13:52:00Rare *ABN*(09/18/2011 08:52:00)[facility] BluvhtsYLJDNDDGRP8610-19-25 13:52:00Slight *ABN*(09/18/2011 08:52:00)[facility] SosvjvbDROILTYQOD7668-95-34 13:52:001+ *ABN*(09/18/2011 08:52:00)[facility] WfllrqcWZLBIIRUVK7634-73-36 13:52:001+ *ABN*(09/18/2011 08:52:00)[facility] BqydbqyWWIIUWCLLC0128-68-33 13:52:000.6[facility] Vin JAXHYPPBND8844-92-72 13:52:0010.8[facility] HygnhesAZTMDLRBYX3071-67-11 13:52:00 0.0[facility] RdxpvzjJNEQWURXZW4119-03-07 13:52:001+ *ABN*(09/18/2011 08:52:00) [facility] GkunyedIKCXGNJATD0599-90-12 13:52:00Negative *NA*(09/18/2011 08:52:00) [facility]annB[facility]SE SRQSPAF9921-68-15 17:34:11413Tgumtmqn Vin BEDSIDE GLUCOSE VAGPOXL6181-58-86 11:43:0091[facility] HermannBEDSIDE GLUCOSE PZOFJNO1089-16-07 02:45:30991Elyyjcqf JstchfhZWSVAEGVP9509-96-04 08:47:24208 [facility] MwixddpHMRNPRABM8969-91-40 08:47:52891Vamafdtn HermannCHEMISTRY 2011-09-08 08:47:0029[facility] MpzfuzrAFADNUYPQ9265-53-44 08:47:41681Kewuwgvi HejtkciRJVKFULCG6908-80-11 08:47:0010[facility] QknrocqWLMEDJIZV0442-73-50 08:47:003.8[facility] BrhbvycMOQWLMILJ4856-67-36 08:47:000.6[facility] BBNJUWNEI3664-26-38 08:47:008.5[facility] XpoajbhKYPFJFIEH2507-91-66 08:47:0014.8 [facility] UvafpieCVAJSUUNCB7618-62-59 08:47:00 Test Item Value Reference Range Interpretation Comments MCH (test code = MCH) 28.9 pg 27.0-31.0 N [facility] NbwryfqGVTTPYZYOR3185-72-96 08:47:0082.1[facility] HermannHEMATOLOGY 2011-09-08 08:47:0025.9[facility] DgnyzgvMHWATDYGRX4883-99-03 08:47:97641Vjmmfdsi UfxjvupHOLOHHFQSX4239-01-26 08:47:0014.5[facility] FbhxmgdVBSQLYNKUJ1413-67-41 08:47:0035.2[facility] WwbtewsHVRVKXZNSD9292-72-19 08:47:009.1[facility] VLFCAZAURW7408-11-37 08:47:003.15[facility] YpxtndzGDKZEIWEXA8057-37-90 08:47:00 9.0[facility] AslbfkkNQXHGFKCSW1643-48-31 08:47:006.3[facility] HermannHEMATOLOGY 2011-09-08 08:47:000.0[facility] ZsgmvigJVIYYFDCIZ4953-94-91 08:47:000.0[facility] TupjlbbHZEPPZUDDQ5445-94-42 08:47:003.8[facility] YtbvcijQCHVBDUOKN0387-03-21 08:47:002.0[facility] NwimpgcIRTHQASUOH4307-90-16 08:47:000.5[facility] Vin VYHNMWKQTD5385-21-29 08:47:000.7[facility] EbqqktzZLZTDPRWWF1748-37-87 08:47:006.2 [facility] ZaiubehULUCBFELZP5670-82-95 08:47:0061.1[facility] HermannHEMATOLOGY 2011-09-08 08:47:0031.5[facility] ZvduziaEJKEEJKHMI8400-21-04 08:47:000.4[facility] LkvayxpLMMUZBZLU5951-44-05 10:54:0027[facility] TpaxflaTBBVRDGXS4961-92-37 10:54:78397Lecvaabv BdlqiduTJGYGWAQY3911-42-67 10:54:000.5[facility] SKEKKWRNL5703-13-70 10:54:0010[facility] BoepodsUJPDSMTKU4034-73-83 10:54:004.1 [facility] AmrcocnJGGAFAGUG4774-39-11 10:54:81784Ulfaaysn HermannCHEMISTRY 2011-09-07 10:54:0083[facility] WirvoivFWFAFLWGQ4110-33-61 10:54:008.4[facility] NobjcgvXPLGBLNNE8804-65-36 10:54:0014.1[facility] LdsqpamJXYYSANFPL5562-73-89 10:54:0035.5[facility] UoawecgEQBOWIXTMZ2191-05-54 10:54:004.7[facility] TDTRERQHXL3823-07-07 10:54:0092.6[facility] SyrfoczWPXUTUGKYX0565-21-93 10:54:00 Test Item Value Reference Range Interpretation Comments MCH (test code = MCH) 31.4 pg 27.0-31.0 H [facility] CtslmkzTJCIFGNBSD4088-29-96 10:54:003.84[facility] HermannHEMATOLOGY 2011-09-07 10:54:0012.1[facility] EjfphkoYSAXECGGJO9540-43-11 10:54:38414Iwusadpj EwmornrLVQTOYFURS1456-84-82 10:54:0012.7[facility] MvzzodiNYARNFOHRJ8548-31-92 10:54:0033.9[facility] CmyixwkVTTPKCHGCX8882-87-06 10:54:007.2[facility] Vin QUEKHWKTFU9900-73-16 10:54:000.95[facility] QkdomjcIVZFEWCGBQ6958-08-51 10:54:00 Test Item Value Reference Range Interpretation Comments PT (test code = PT) 12.7 s 12.0-14.[address] [facility] LmvkjfcKZRVOUYWGG6763-03-08 10:54:00 Test Item Value Reference Range Interpretation Comments PTT (test code = PTT) 28.5 s 22.9-35.8 N [facility] BiffohzAERTCVYZVL8893-76-73 10:54:000.1[facility] HermannHEMATOLOGY 2011-09-07 10:54:000.0[facility] XqiwesaNNNAKZYTDB4073-96-77 10:54:000.4[facility] CxzkkgjBZIOZOCTVO2870-64-85 10:54:002.1[facility] HhfrtnwYMEPFRHIQC3718-69-16 10:54:009.0[facility] ByagftjZZRGAZUPYH5352-79-01 10:54:002.4[facility] LEKYJUBIHI3313-09-85 10:54:000.4[facility] YwyrebwKSEXRKFOTW2995-49-70 10:54:002.0 [facility] EnbygqhSMJZNDNITO8900-83-88 10:54:0042.8[facility] HermannHEMATOLOGY 2011-09-07 10:54:0045.4[facility] BvptvzfJHSXERKOO9576-61-72 10:02:21549Ezxeboku JbtogspFZAXOEXVW2433-52-22 10:02:004.1[facility] QrmnzjaEINAQMMHY8754-21-75 10:02:71498Ilxcfyoh SwbvdcqVTKBPESBL5362-93-71 10:02:0029[facility] CBFTAGCBW5297-75-62 10:02:008.7[facility] PklchztCHIBOYPOE8319-66-60 10:02:006 [facility] AankxvyMIORBRTSW3201-74-33 10:02:000.6[facility] HermannCHEMISTRY 2011-09-07 10:02:36815Dbwmsavk XvqttmbTBDHUPTKK5339-43-97 10:02:0013.1[facility] BccmhcbMCNKZLLRII1844-07-93 10:02:000.0[facility] NkxvgioBIIQYRNLJZ6004-55-70 10:02:000.3[facility] BgndbxeCQDJHTIZWT1872-35-88 10:02:000.1[facility] Vin ASCRRFRGUE5412-78-12 10:02:002.8[facility] HqwzsnnTPDSIOKVVK7720-04-39 10:02:001.7 [facility] NpnuxjxKYYQVPUJQT5288-67-20 10:02:000.6[facility] HermannHEMATOLOGY 2011-09-07 10:02:006.9[facility] HgtgmmqIAMWIIUZTX1092-39-87 10:02:002.0[facility] OnhbbsrOVURCMHWJM0241-99-41 10:02:0055.8[facility] FgqcmpbKCPZPSRHGT8908-39-85 10:02:0034.7[facility] IhtvggcSJECSZYYIE2139-56-29 10:02:00 Test Item Value Reference Range Interpretation Comments PTT (test code = PTT) 32.2 s 22.9-35.[address] [facility] VnzlhyxFNNRUUPRPJ9948-98-49 10:02:00 Test Item Value Reference Range Interpretation Comments PT (test code = PT) 13.3 s 12.0-14.[address] [facility] PtbluxqRWHZBXWAHX9067-29-80 10:02:001.01[facility] HermannHEMATOLOGY 2011-09-07 10:02:0027.5[facility] VsrexkrSRLDKYYVVZ3001-54-42 10:02:003.34[facility] QrrmebpZLZKVTDGRN3422-31-94 10:02:009.7[facility] HqmmwqqJHXBSXYBMA6650-71-43 10:02:005.0[facility] WcflpdxKBQSCTCLDS5043-01-03 10:02:009.2[facility] Vin FZZYZLQWBE8081-10-00 10:02:21379Seyhjpja VhninriWIFOVWSWWV7213-95-40 10:02:00 14.3[facility] QfssimsEUBKEBIBVC6487-80-49 10:02:0035.2[facility] HermannHEMATOLOGY 2011-09-07 10:02:00 Test Item Value Reference Range Interpretation Comments MCH (test code = MCH) 28.9 pg 27.0-31.0 N [facility] ItjadmsRGFTRRXZOG6962-64-22 10:02:0082.1[facility] HermannCHEMISTRY 2011-09-03 09:24:002.1[facility] PawgnkfJDHTMTXUC4113-42-26 17:10:0037.0[facility] PyzdgsaBUENLJZIJ8575-56-15 17:10:0027.0[facility] SjmhdknTQFJFFLKJ1619-89-94 17:10:0047[facility] SvrlydvHIAWAGAZQ7171-95-10 17:10:007.37[facility] LNNGZEFID1543-26-83 17:10:001[facility] RmfzdvmDNBOGOGVS4400-23-12 17:10:0027.2 [facility] FmfjkpjAXIVWTIJT2173-96-50 17:10:0019[facility] HermannCHEMISTRY 2011-09-01 13:09:001.0[facility] FfdovymIEGNQSQZV1325-71-34 12:20:00Negative (09/01/2011 07:20:00)[facility] XjifzyqGMMUZZYZSW9559-79-82 12:20:00Occasional /LPF (09/01/2011 07:20:00)[facility] VflkgazSIFGUHJOVF0195-99-34 12:20:00Negative (09/01/2011 07:20:00)[facility] AimrpgoMISFPKGFFO8114-76-00 12:20:00Negative (09/01/2011 07:20:00)[facility] EvkhmcyDHDROARSNF9041-77-39 12:20:000.2[facility] VstsqgzIZWBORKUES4499-12-29 12:20:00Negative (09/01/2011 07:20:00)[facility] TwjwvmqOVLKMBAGPN1119-04-21 12:20:00>=80 mg/dL *ABN*(09/01/2011 07:20:00) [facility] XftzmpwPHCBPJSGLZ3991-91-13 12:20:00Negative (09/01/2011 07:20:00) [facility] JtwalxvDHGIFZWXYU2056-18-74 12:20:00 Test Item Value Reference Range Interpretation Comments UA pH (test code = UA pH) 6.0 1 5.0-8.[address] [facility] RyjxpewWBPWWSUCCP4093-30-23 12:20:00Negative (09/01/2011 07:20:00) [facility] IpbuoobGHIIJOULHH2407-97-42 12:20:00>=1000 mg/dL *ABN*(09/01/2011 07:20:00)[facility]hlixwjQUBPCBEXAH0825-45-85 12:20:00 Test Item Value Reference Range Interpretation Comments UA Spec Grav (test code = UA Spec 1.[address] [facility] VzbmbbtCEYAGTNQLA4344-45-25 12:20:00Clear (09/01/2011 07:20:00)[facility] CafuxyzHUTTJBRSCP6077-54-60 12:20:00Yellow *NA*(09/01/2011 07:20:00)[facility] HnlbvgbUBILJUWQZ1286-40-82 08:00:002.8[facility] FvxexmcFHPQCEMOL7747-41-78 07:47:001.5[facility] RxpkpisRWDKZFOVLY3607-19-95 07:47:00Slight (09/01/2011 02:47:00)[facility] VogaarlWHANNEBJAC6252-91-77 07:47:001+ *ABN*(09/01/2011 02:47:00)[facility] PkeznnwDJFIZEYSFA2561-06-84 07:47:00Slight *ABN*(09/01/2011 02:47:00)[facility] FvdtkluVNAXSQWSQE3396-49-12 07:47:00Slight *ABN*(09/01/2011 02:47:00)[facility] HermannBEDSIDE GLUCOSE INWTZOQ4108-11-29 17:02:81076Ejmrrmej HermannBEDSIDE GLUCOSE YNOBEHP3664-14-72 13:45:48450Roqspmwn HermannCHEMISTRY 2011-08-23 10:22:003.0[facility] ImebhnyIKYPDAZLD2404-19-10 10:22:001.8[facility] MtjrfwzUZMUKIUUY7230-84-74 10:22:05591Oqwyftih AgkxzppGWYMRZFIG1748-27-57 10:22:003.0[facility] AvmmdfwSWZULPIVF2314-27-22 10:22:79004Tltkwgzf Vin WRKOJRFPF9030-20-60 10:22:000.6[facility] LaaajsrJXOFLLSSX7122-38-59 10:22:0023 [facility] TpvrzqdSWAEYOZMY5135-92-23 10:22:007.3[facility] HermannCHEMISTRY 2011-08-23 10:22:88494Ftrbqcwj GtdznnyNSGRLOUSE3398-85-79 10:22:0014.0[facility] TlbscmsHDKOSJVOQ9693-12-73 10:22:005[facility] VnrdyvrNSNIXAMWXD7354-31-46 10:22:0069.6[facility] KvpcjpvNLTAASXBIB6280-92-54 10:22:0021.5[facility] APBKRLCKZD5573-59-27 10:22:007.6[facility] AphexzpEHXMKKXRPR4501-56-63 10:22:001.0 [facility] WiyfqmtTWSZRWYMTJ9903-62-76 10:22:000.3[facility] HermannHEMATOLOGY 2011-08-23 10:22:004.8[facility] XgupuhpKQRREPIXKA5489-06-76 10:22:000.1[facility] LnyfgqmBGHCKYZWGH6774-44-12 10:22:001.5[facility] PjzstfbZBTHYIGGGY9303-94-20 10:22:000.5[facility] ScgcbqvHBMSSLOICF4007-22-43 10:22:000.0[facility] VUXKUUATTW5151-55-56 10:22:0011.0[facility] UwpkhncWNJRJASEBX4943-04-21 10:22:00 161[facility] LrvloauNDXRZUGFIK5844-35-20 10:22:00 Test Item Value Reference Range Interpretation Comments MCH (test code = MCH) 29.6 pg 27.0-31.0 N [facility] LhhggsvSPNQHNBZPK4074-32-29 10:22:0035.4[facility] HermannHEMATOLOGY 2011-08-23 10:22:0014.1[facility] MbxblwxKNYEKRTNRB4362-25-15 10:22:006.8[facility] AfdfmulPPAOIZHDMX3814-66-34 10:22:0083.5[facility] ZtnfzebPKJPWPOLHR5797-52-26 10:22:004.44[facility] VenwvgzCKDYCKBBSL4133-20-16 10:22:0013.1[facility] Vin ILWZGTURIB2536-09-10 10:22:0037.1[facility] HermannBEDSIDE GLUCOSE TESTING 2011-08-23 02:20:27685Egomwdae EmgldcjZLNPUUOTO9956-44-72 09:47:002.5[facility] CwhzmdtICTXHKKSG3361-26-62 09:47:39534Utggrdwt NejvhdjBCOCKESKH1360-53-66 09:47:007[facility] IqlncssCKMUOMWKE6340-47-25 09:47:0019[facility] HermannCHEMISTRY 2011-08-22 09:47:000.3[facility] XpqwpkiVQKDYZEVE9806-28-99 09:47:24126Axdmmawg QqoftynQZNOBFCNH7443-03-72 09:47:07911Qmiuhiqd PvnfrgiSOIFPQSRD4611-85-79 09:47:003.6[facility] GykqvfpUCGOLDXNU8945-15-32 09:47:007.9[facility] PCQJQLCPX6775-34-96 09:47:0018.6[facility] IycspcpLKCPIGZJS2239-85-45 09:47:001.6 [facility] AjfivtgOZOEOOEKBI4234-85-13 09:47:000.0[facility] HermannHEMATOLOGY 2011-08-22 09:47:000.4[facility] QcnfbcoXOSJXJMQXG4769-09-49 09:47:000.5[facility] LhhiswuXQGHMDIUIO5328-28-17 09:47:005.9[facility] YhsoreeLSKKIZRCHL1049-19-77 09:47:001.2[facility] YvemlysTVVBQTNLCQ6123-46-10 09:47:000.5[facility] DPXYYBVJVG0439-10-23 09:47:000.0[facility] PjshdfkFQSLUJEFHY3631-36-05 09:47:00 76.9[facility] KthkdhzFZSRZPYTCU0403-81-51 09:47:0015.9[facility] HermannHEMATOLOGY 2011-08-22 09:47:006.3[facility] JvozcjnTQFNELLAVY8906-72-43 09:47:0082.8[facility] TcmhmqgGZTFFRYCEA6516-75-65 09:47:0039.7[facility] NsctdlpPHXUEMEOGW0313-21-12 09:47:00 Test Item Value Reference Range Interpretation Comments MCH (test code = MCH) 29.1 pg 27.0-31.0 N [facility] PdxyajfZZFSBRJMCY8610-23-38 09:47:0014.0[facility] HermannHEMATOLOGY 2011-08-22 09:47:0035.2[facility] FtomlgfCKSQRPQTSZ0508-61-22 09:47:0013.9[facility] CcteemkFEIDHDYMGG1326-17-95 09:47:55443Ruxbepkn FuyskxmKQJDMFIWEB5554-84-90 09:47:0011.9[facility] FecuucgLUULQMVNAD4926-83-31 09:47:007.7[facility] RWRASTDRFU0602-75-51 09:47:004.80[facility] JslavwoIARVSACOP6634-38-44 10:28:002.6 [facility] QizuidkVISFCYTWQ4406-75-59 10:28:001.8[facility] HermannCHEMISTRY 2011-08-21 10:28:003.7[facility] SllikepFABPXHRVJ6441-26-57 10:28:77626Ljizfjkp JpphgksJWMPRRXJM4252-19-02 10:28:000.6[facility] HprrjmeVSMUPZLFL9650-93-63 10:28:0016[facility] XvsrckqQHMQXOJMN9530-79-05 10:28:29085Jlmieehh [facility] KTZQQIQRV7276-34-48 10:28:008.3[facility] WkqgejySIIWAPEFT7704-41-28 10:28:0019.7 [facility] YmpyihjBWLJTGCQU3682-71-76 10:28:0099[facility] HermannCHEMISTRY 2011-08-21 10:28:0022[facility] IwikgyrYDBEZLJXED5325-21-35 10:28:13754Ilowvhut IditlvxQLYTUKLUKL2343-18-56 10:28:0012.0[facility] GmevtokBOQLLHQSRR9084-27-01 10:28:007.3[facility] JsoipniSCKOMOFDZD4645-76-34 10:28:0014.6[facility] YKELKGOSWI8872-04-67 10:28:0035.0[facility] OfzbxdzTRYSAMVXDT9720-20-14 10:28:00 4.54[facility] YvlgjnaWNTNCBCGOY1034-14-73 10:28:0037.6[facility] HermannHEMATOLOGY 2011-08-21 10:28:0082.9[facility] ClhwwacVYWZRYXMRX2148-91-48 10:28:00 Test Item Value Reference Range Interpretation Comments MCH (test code = MCH) 29.0 pg 27.0-31.0 N [facility] TyujbsrVAHZIHZLPB3911-41-67 10:28:0013.2[facility] HermannHEMATOLOGY 2011-08-21 10:28:00Slight *ABN*(08/21/2011 04:28:00)[facility]annHEMATOLOGY 2011-08-21 10:28:00Slight (08/21/2011 04:28:00)[facility]annHEMATOLOGY 2011-08-21 10:28:000.0[facility] CjtruqgZZNJQLQCVV3993-15-68 10:28:00Slight (08/21/2011 04:28:00)[facility] IoivobzKHQQLHTFNQ5083-12-44 10:28:000.6[facility] VyguwzbBBKXLFFTKJ4879-32-33 10:28:000.0[facility] KryvitlTTKSROZONQ7962-39-75 10:28:005.3[facility] NqtfkyhAOHHGLIAEG8954-90-63 10:28:001.3[facility] Vin PQEPDLYFAZ3295-41-46 10:28:000.5[facility] EoydqbuKIQACJHYCH7036-19-17 10:28:008.5 [facility] LudedxfPXFGQPYEJZ3465-54-38 10:28:000.3[facility] HermannHEMATOLOGY 2011-08-21 10:28:0017.3[facility] IpvhcwoAHXRSMMOOY4374-41-89 10:28:0073.4[facility] YpabeyjNSZFBQEKU8412-37-45 21:58:00Negative (08/19/2011 15:58:00)[facility] PoylywkNFPKOYCSH1866-35-54 21:58:80809Onxlxyfs CouhxhrOBDUMJDYQ9085-93-74 21:58:0054[facility] UocmwfvBQHCYUQQU5379-37-41 21:58:67833Dvagholr Vin EYTUTXRYP1815-40-48 21:58:000.1[facility] IftzaeuTOBQBJYGC5969-59-15 21:58:000.9 [facility] UjnngfuVGTFPLMSU8750-81-13 21:58:004.4[facility] HermannCHEMISTRY 2011-08-19 21:58:008.8[facility] QxpzmtjJPOJHJELD7143-90-44 21:58:000.8[facility] DnwxuubYKKMGQOIE2627-57-23 21:58:0036[facility] EkxlwjlRVLQMROWP9299-67-17 21:58:004.4[facility] OatymnuLRHNLDGTR1410-01-61 21:58:001.0[facility] EBCKJTSXIY5392-08-44 21:58:00Occasional /HPF (08/19/2011 15:58:00)[facility] ZfbwyngBDETLEVHSL6263-42-49 21:58:003-5 /HPF *ABN*(08/19/2011 15:58:00)[facility] OhcxnhmXPOOBFOCMR6438-41-06 21:58:003[facility] KgbtsaaJITOTIZGQC7631-10-25 21:58:00Few /LPF (08/19/2011 15:58:00)[facility] HrczuybWUGFPUTOFR6756-23-14 21:58:00Occasional /HPF *ABN*(08/19/2011 15:58:00)[facility] HermannURINALYSIS 2011-08-19 21:58:000.2[facility] BarhfxdYVMHVKAGEG6536-64-29 21:58:00Rare /LPF (08/19/2011 15:58:00)[facility] YtbiqxnXVIQUQDRWW4603-13-43 21:58:00Performed (08/19/2011 15:58:00)[facility] XbauabcEYALHNFGEA3345-21-64 21:58:00Negative (08/19/2011 15:58:00)[facility] KvfnxhwWSGLZVKVLO3988-47-18 21:58:00Negative (08/19/2011 15:58:00)[facility] TzqjspdQITYMRSMFY9316-96-13 21:58:00 Test Item Value Reference Range Interpretation Comments UA pH (test code = UA pH) 5.5 1 5.0-8.0 N [facility] WymenjiOCMIXBBDVI4963-60-07 21:58:00Trace *ABN*(08/19/2011 15:58:00) [facility] VhbgswdXCJOXFAGRN4503-18-32 21:58:00Negative (08/19/2011 15:58:00) [facility] XhxkpdyBAYYALOATN6225-85-07 21:58:0080 mg/dL *ABN*(08/19/2011 15:58:00) [facility] KctlqsnPOLBNHXBKY7503-51-51 21:58:00>=1000 mg/dL *ABN*(08/19/2011 15:58:00)[facility] OavkktbOKMCHMUGYH1335-30-00 21:58:00Negative (08/19/2011 15:58:00)[facility] FvnopqbYDVSCVQUNR8625-06-07 21:58:00Slight Cloudy (08/19/2011 15:58:00)[facility] SjmxefpCYHOKTBIYI2049-05-05 21:58:00 Test Item Value Reference Range Interpretation Comments UA Spec Grav (test code = UA Spec 1.025 1 Grav) [facility] LvrmualNRELJKRNQA1640-05-48 21:58:00Yellow (08/19/2011 15:58:00) [facility] DzpzxagJFITNUXEQ4097-57-13 21:13:0023[facility] HermannCHEMISTRY 2011-08-19 21:13:001.0[facility] TurzcplJBFFQAYZG2429-84-76 21:13:88911Ruqpscdt XpjemsiAWPGYNJUR3322-12-07 21:13:0056[facility] BqzsbroUIIMAHXEP3334-15-94 21:13:009.0[facility] ZcbfkqmKYVNOOKDD8573-75-15 21:13:004.8[facility] Vin CVRRBHCFL0646-43-00 21:13:004.2[facility] OqzceqrTMZCNUFAM2424-75-91 21:13:001.1 [facility] MgsspxgNAGRHWVSN1413-07-72 21:13:0030[facility] HermannHEMATOLOGY 2011-08-19 21:13:00Normal (08/19/2011 15:13:00)[facility] HermannHEMATOLOGY 2011-08-19 21:13:00Slight *ABN*(08/19/2011 15:13:00)[facility] HermannHEMATOLOGY 2011-08-19 21:13:000.0[facility] CuzfohqBDRBUCZPLS9585-12-88 21:13:000.0[facility] LewdzqkKMVGWNOKO1786-00-50 21:10:0074.0[facility] OqqkvxlLOZAUVKBJ5954-42-84 21:10:0037.0[facility] OwjwiegQJJKQNKFA0463-01-16 21:10:0042[facility] OVJQIVBSH1071-55-26 21:10:0017.3[facility] ElwcshaQJUKGFVKF7413-84-95 21:10:007.34 [facility] VmulbggRHWYNDSBX9438-39-85 21:10:0032[facility] HermannCHEMISTRY 2011-08-19 21:10:00-7[facility] NcxlqhpOENKJUMUHR1828-60-03 20:34:00Negative *NA*(08/19/2011 14:34:00)[facility]
--- OUTSIDE RECORDS SUMMARY | 2020-07-20 20:35 | XMS REPORT | Summary of Care ---
:1980 Author Organization [facility] Address [address] [place] [address] Care Team Providers Name Role Phone Vivien Morin DO Car Runner Vivien Morin DO Primary Care Provider Reason for Referral (Routine) Status Reason Specialty Diagnoses / Procedures Referred By C ontact Referred To Contact Closed Cardiology Diagnoses ESRD (end stage renal disease) on dialysis Olivares, Sendil Procedures CARDIO LOOP MONITOR MD [facility] [address] [facility] [address] [facility] [place] [phone] Phone: (Routine) Status Reason Specialty Diagnoses / Procedures Referred By C ontact Referred To Contact Closed Cardiology Diagnoses ESRD (end stage renal disease) on dialysis Olivares, Sendil Procedures ECHO ROUTINE W/DOPPLER COLOR Preferred Location: [facility] [address] [facility] [address] [address] Phone: Reason for Visit Reason Comments Follow-up Annual Ekg Done today in office Encounter Details Date Type Department Care Team Description 04/25/2020 Office Visit [facility] Olivares, Sendil Palpitations (Primary Dx); Cardiology- Levi Bolaños MD ESRD (end stage renal disease) on dialys is; [facility] [address] Obesity (BMI 30-39.9); Drive, [address] [place] MARIE 106 Family history of premature CAD; [place], [place] Nonobstructive atherosclerosis of coronary artery; [phone] Dyslipidemia; [phone] Essential hypertension; [phone] Atypical chest pain (Fax) Allergies Active Allergy [...] as of this encounter (statuses as of 07/13/2020) Medications Medication Sig Dispensed Refills Start End [...] daily. (DIALYVITE 800 ORAL) linagliptin Take by 0 Active (TRADJENTA) 5 mg mouth. tablet spironolactone 50 mg Take 50 mg by 0 Active tablet mouth daily. BUPROPION HCL ORAL Take by 0 A ctive mouth. pravastatin 40 mg Take by mouth 0 Active tablet daily. mv-mn/iron/folic Take 1 capsule 0 Active acid/herb 190 by mouth (VITAMIN D3 COMPLETE daily. ORAL) SERTraline 50 mg Take 50 mg by 0 Active tablet mouth daily. calcium acetate 667 Take 667 mg by 0 Active mg capsule mouth 3 (three) times daily with meals. traZODone 150 mg Take 150 mg by 0 Active tablet mouth at 0 bedtime. cetirizine Take 1 tablet 0 Activ e HCl/pseudoephedrine by mouth (ZYRTEC-D ORAL) daily. furosemide 40 mg Take 40 mg by 0 Active tablet mouth 2 (two) times daily. doxazosin 4 mg Take 4 mg by 0 06/27/19 Di scontinued tablet mouth 2 (two) 21 (Dose times daily. adjustm ent) diphenhydrAMINE 50 Take 1 tablet 20 tablet 0 0 Discontinued mg tablet by mouth every 8 21 (Ther apy 6 (six) hours comple rohit) as needed for Allergies. erythromycin [address] 0.5 1 Tube 0 06/27/19 Disco ntinued mg/gram (0.5 %) Inches in left 9 (Therapy ophthalmic eye 3 (three) compl eted) ointmentIndications: times daily. Orbital pain, left Continue until you follow up with eye doctor. glipiZIDE 5 mg Take 5 mg by 0 05/01/20 Di scontinued tablet mouth. 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 07/22/2017 Overview: Added automatically from request for jose jacobs [id number] Neovascular glaucoma, left eye 07/08/2017 Increased intraocular pressure 07/08/2017 Fall 04/02/2017 Pneumonia 03/31/2017 Diabetes mellitus 03/25/2017 Overview: Added automatically from request for jose jacobs [id number] Pseudotumor cerebri 03/15/2017 Peripheral neuropathy 01/03/2017 Obesity [...] as of this encounter (statuses as of 07/13/2020) Resolved Problems Problem Noted Date Resolved Date Diabetes, type 1.5, uncontrolled, managed as type 2 04/29/20 15 09/17/2015 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 documented as of this encounter Last Filed Vital Signs Vital Sign Reading Time Taken Comments Blood Pressure 173/108 04/25/2020 10:24 AM CONTENT SPECIALIST Pulse 89 04/25/2020 10:17 AM CONTENT SPECIALIST Temperature - - Respiratory Rate 19 04/25/2020 10:17 AM CONTENT SPECIALIST Oxygen Saturation 100% 04/25/2020 10:17 AM CONTENT SPECIALIST Inhaled Oxygen Concentration - - Weight 81 kg (178 lb 8 oz) 04/25/2020 10:17 AM CONTENT SPECIALIST Height 154.9 cm (5' 1") 04/25/2020 10:17 AM CONTENT SPECIALIST Body Mass Index 33.73 04/25/2020 10:17 AM CONTENT SPECIALIST documented in this encounter Progress Notes Oz Olivares MD - 04/25/2020 10:00 AM CST [facility] Cardiology Consult Note Patient: Cathi Zaldivar [...] dialysis, DM, HTN, dyslipidemia. Outside records reviewed [facility] PET Stress test 12/2016 IMPRESSION: 1. Normal study.2. Appropriate pharmacologic stress.3. Normal myocardial perfusion.4. Normal resting LV function. No deterioration of function is noted with pharmacologic stress.5. Normal extracardiac tracer distribution.6. No previous [facility] study for comparison. 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 Labs from [facility] dialysis reviewed. Done on 09.23.2018 A1c: 5.5 Hb 11 K 4.7 LDL 54 TG 165 HDL 33 ASSESSMENT/PLAN 1. Palpitations 2. ESRD (end stage renal disease) on dialysis EKG-12 LEAD ROUTINE ECHO ROUTINE W/DOPPLER COLOR Preferred Location: [facility] CARDIO LOOP MONITOR 3. Obesity (BMI [...] Procedures ECHO ROUTINE W/DOPPLER COLOR Preferred Location: [facility] Requested Prescriptions No prescriptions requested or [...] feel free to call our office at [phone]. I would be happy to be of further assistance for Cathi Zaldivar wellbeing. Jono Olivares MD Supervisor Pig [employer], Division of Cardiology [facility] documented in this encounter Plan of Treatment Date Type Specialty Care Team Description 07/23/2020 Office Visit Orthopedic Surgery Deja Cleaning , DPM [address] [place] [phone] 08/06/2020 Office Visit Endocrinology Diabetes & Tee Gonzalez MD Metabolism [address] [place], [place] [phone] 12/26/2020 Office Visit Cardiology Oz Olivares MD [address] [place] [address] DR MARTINEZ [address] [place] [address] [phone] 04/08/2021 Office Visit Obstetrics & Gynecology Gina Bhat MD [address] [place] [address] Dr. [address] [place] [phone] Name Type Priority Associated Diagnoses Order [...] of this encounter Implants Implanted Type Area Cessation Systems Outreach Specialist Device Shelf Model / Identifier Expiration Serial / Date Lot Bio Eye Implant, Integrated Orbital Impl ants Ioi 18mm Perforated #[id number] - [id number] ORBITAL Left: [employer]TEGRATED 09/18/2018 [id number] / Implanted: Qty: 1 on 01/17/2018 by Latrell Mcknight MD at [facility] Eye ORBITAL IMPLANTS [id number] / [id number] documented as of this encounter Procedures Procedure Name Priority Date/Time Associated Diagnosis Comme nts GA ELECTROCARDIOGRAM, Routine 04/25/2020 10:19 AM ESRD (end st age renal COMPLETE CONTENT SPECIALIST disease) on dialysis documented in this encounter Results ECHO ROUTINE W/DOPPLER COLOR Preferred Location: [facility] (05/28/2020 8:08 AM CONTENT SPECIALIST) Specimen Performing Organization Address City/State/Zipcode Phone Number ECHO documented in this encounter Visit Diagnoses Diagnosis Palpitations [...] Addre ss Type Group MEDICARE MEDICARE PART [id number] 2014-[place] [phone] Medicare A & B t 2 [id number] [place] [phone] [facility] MEDICAID OF [id number] 2020-[place] [phone] [address] Medicaid [place] [address] [id number] [place] [address] documented as of this encounter Advance Directives Name Relationship Healthcare Agent Communication Relationship Jennifer Gunderson Mother Health Care Agent [place] Found Sibling [facility] [phone] Agent (Mobile)
--- OUTSIDE RECORDS SUMMARY | 2020-07-20 20:35 | XMS REPORT | Summary of Care ---
:1980 Author Organization [facility] - Health Address [address] [place] [address] Care Team Providers Name Role Phone Vivein Morin DO Jacker Feeder Vivien Morin DO Primary Care Provider Encounter Details Date Type Department Care Team Description 04/25/2020 Orders Only [facility] Doctor Unassigned, No [address] [facility] [place] [address] [address] [place] [id number] Allergies Active Allergy Reactions Severity Noted Date [...] as of this encounter (statuses as of 07/15/2020) Medications Medication Sig Dispensed Refills Start Date [...] C mouth daily. (DIALYVITE 800 ORAL) linagliptin (TRADJENTA) Take by mouth. 0 Active 5 mg tablet spironolactone 50 mg Take 50 mg by 0 Active tablet mouth daily. BUPROPION HCL ORAL Take by mouth. 0 Active pravastatin 40 mg Take by mouth 0 Active tablet daily. mv-mn/iron/folic Take 1 capsule by 0 Active acid/herb 190 (VITAMIN mouth daily. D3 COMPLETE ORAL) SERTraline 50 mg tablet Take 50 mg by 0 Active mouth daily. calcium acetate 667 mg Take 667 mg by 0 Active capsule mouth 3 (three) times daily with meals. traZODone 150 mg tablet Take 150 mg by 0 02/01/2020 Active mouth at bedtime. cetirizine Take 1 tablet by 0 Ac tive HCl/pseudoephedrine mouth daily. (ZYRTEC-D ORAL) furosemide 40 mg tablet Take 40 mg by 0 Active mouth 2 (two) times daily. 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 07/22/2017 Overview: Added automatically from request for jose reynaldo [id number] Neovascular glaucoma, left eye 07/08/2017 Increased intraocular pressure 07/08/2017 Fall 04/02/2017 Pneumonia 03/31/2017 Diabetes mellitus 03/25/2017 Overview: Added automatically from request for jose reynaldo [id number] Pseudotumor cerebri 03/15/2017 Peripheral neuropathy 01/03/2017 Obesity [...] as of this encounter (statuses as of 07/15/2020) Resolved Problems Problem Noted Date Resolved Date Diabetes, type 1.5, uncontrolled, managed as type 2 04/29/20 15 09/17/2015 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 documented as of this encounter Last Filed Vital Signs Not on filedocumented in this encounter Plan of Treatment Date Type Specialty Care Team Description 07/23/2020 Office Visit Orthopedic Surgery Deja Cleaning , SANTO [address] [place] [phone] 08/06/2020 Office Visit Endocrinology Diabetes & GonzalezTee MD [address] [address] [phone] 12/26/2020 Office Visit Cardiology Oz Olivares MD [address] [place] [address] DR MARTINEZ [address] [place] [address] [phone] 04/08/2021 Office Visit Obstetrics & Gynecology Gina Bhat MD [facility] Martinez [address] [place] [address] [phone] Health Maintenance Due Date Last Done [...] of this encounter Implants Implanted Type Area Liability Claims Manager Device Shelf Model / Identifier Expiration Serial / Date Lot Bio Eye Implant, Integrated Orbital Impl ants Ioi 18mm Perforated #[id number] - [id number] ORBITAL Left: INTEGRATED 09/18/2018 [id number] / Implanted: Qty: 1 on 01/17/2018 by Latrell Mcknight MD at [facility] Eye ORBITAL IMPLANTS [id number] / [id number] documented as of this encounter Procedures Procedure Name Priority Date/Time Associated Diagnosis Comme nts CARDIOLOGY EVENT MONITOR Routine 04/25/2020 12:01 AM LAB ENGINEER documented in this encounter Results Not on filedocumented in this encounter Insurance Payer Benefit Plan / Subscriber ID Effective Dates Phone Addre ss Type Group MEDICARE MEDICARE PART [id number] 2014-Presen [phone] Medicare A & B t 2 [id number] DHEERAJ GEE [phone] [facility] MEDICAID OF [id number] 2020-Presen [phone] [address] Medicaid [place] [id number] [place] [address] documented as of this encounter Advance Directives Name Relationship Healthcare Agent Communication Relationship Jennifer Gunderson Mother Health Care Agent [place] Found Sibling First Alternate Health Care Agent (Mobile)
[2020-07-20] MEDS ORDERED: NA CHLORIDE 0.9% 1,000 ML ONE (20:41)
[2020-07-20 21:19] LABS: ALT/SGPT 15 U/L (12-78); AST/SGOT 20 U/L (15-37); Albumin 3.4 g/dL (3.4-5.0); Alkaline Phosphatase 64 U/L (45-117); BUN Blood Urea Nitrogen 70 mg/dL (7-18); Bicarbonate 23 mmol/L (21-32); Bilirubin Direct 0.2 mg/dL (0-0.2); Bilirubin Total 0.6 mg/dL (0.2-1.0); Glucose Level 227 mg/dL (74-106); Potassium 3.1 mmol/L (3.5-5.1); Protein, Total 7.3 g/dL (6.4-8.2); Sodium Level 136 mmol/L (136-145)
[2020-07-20 21:24] LABS: Absolute Lymphocytes (CBC) 1.3 K/uL (0.7-4.9); Hematocrit 25.9 % (36.0-45.0); Lymphocytes % 18.1 % (15.3-44.8); MPV 10.8 fL (7.6-11.3); RBC Red Blood Cell Count 2.75 M/uL (3.86-4.86)
[2020-07-20] MEDS ORDERED: HYDRALAZINE HCL 20 MG/ML VIAL ONE ×2 (21:31→23:30)
[2020-07-20] MEDS ORDERED: HYDRALAZINE HCL 10 MG TABLET ONE (21:31)
[2020-07-20 21:35] LABS: Protime INR 0.98
[2020-07-20] MEDS ORDERED: ONDANSETRON 4 MG/2 ML VIAL ONE (21:40)
--- NOTE | 2020-07-20 23:10 | EDPHYS ---
Physician Documentation [facility] Name: Cathi Zaldivar Age: 39 yrs Sex: Female : 1980 Arrival Date: 07/20/2020 Time: 20:07 Bed 16 Private MD: ED Physician Luis Sandra HPI: 07/20 22:49 This 39 yrs old Female presents to ER via Wheelchair with complaints of juan Accidental Overdose. 22:50 The patient presents to the emergency department after a known overdose, that was juan accidental, TOOK TRAZADONE 6 TABS BY MISTAKE,MISSED DIALYSIS TODAY WELL. Context: Method: the patient has a confirmed or suspected ingestion, TRAZADONE. Associated signs and symptoms: Pertinent positives: nausea, shortness of breath. Severity of symptoms: At their worst the symptoms were mild moderate. The patient has experienced similar episodes in the past, several times. 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 - Social history:: Smoking status: Patient reports the use of cigarette tobacco products, smokes one-half pack cigarettes per day. ROS: 22:57 Constitutional: Negative for fever, chills, and weight loss, Eyes: Negative for injury, juan pain, redness, and discharge, ENT: Negative for injury, pain, and discharge, Neck: Negative for injury, pain, and swelling, Cardiovascular: Negative for chest pain, palpitations, and edema, Respiratory: Negative for shortness of breath, cough, wheezing, and pleuritic chest pain, Back: Negative for injury and pain, : Negative for injury, bleeding, discharge, and swelling, MS/Extremity: Negative for injury and deformity, Skin: Negative for injury, rash, and discoloration, Neuro: Negative for headache, weakness, numbness, tingling, and seizure, Psych: Negative for depression, anxiety, suicide ideation, homicidal ideation, and hallucinations, Allergy/Immunology: Negative for hives, rash, and allergies, Endocrine: Negative for neck swelling, polydipsia, polyuria, polyphagia, and marked weight changes, Hematologic/Lymphatic: Negative for swollen nodes, abnormal bleeding, and unusual bruising. 22:57 Abdomen/GI: Positive for nausea and vomiting. 22:57 MS/extremity: Positive for RIGHT UPPER ARM, av fistula. Exam: 22:57 Constitutional: This is a well developed, well nourished patient who is awake, alert, juan and in no acute distress. Head/Face: Normocephalic, atraumatic. Eyes: Pupils equal round and reactive to light, extra-ocular motions intact. Lids and lashes normal. Conjunctiva and sclera are non-icteric and not injected. Cornea within normal limits. Periorbital areas with no swelling, redness, or edema. ENT: Nares patent. No nasal discharge, no septal abnormalities noted. Tympanic membranes are normal and external auditory canals are clear. Oropharynx with no redness, swelling, or masses, exudates, or evidence of obstruction, uvula midline. Mucous membranes moist. Neck: Trachea midline, no thyromegaly or masses palpated, and no cervical lymphadenopathy. Supple, full range of motion without nuchal rigidity, or vertebral point tenderness. No Meningismus. Chest/axilla: Normal chest wall appearance and motion. Nontender with no deformity. No lesions are appreciated. Cardiovascular: Regular rate and rhythm with a normal S1 and S2. No gallops, murmurs, or rubs. Normal PMI, no JVD. No pulse deficits. Respiratory: Lungs have equal breath sounds bilaterally, clear to auscultation and percussion. No rales, rhonchi or wheezes noted. No increased work of breathing, no retractions or nasal flaring. Back: No spinal tenderness. No costovertebral tenderness. Full range of motion. Skin: Warm, dry with normal turgor. Normal color with no rashes, no lesions, and no evidence of cellulitis. MS/ Extremity: Pulses equal, no cyanosis. Neurovascular intact. Full, normal range of motion. Neuro: Awake and alert, GCS 15, oriented to person, place, time, and situation. Cranial nerves II-XII grossly intact. Motor strength 5/5 in all extremities. Sensory grossly intact. Cerebellar exam normal. Normal gait. 22:57 Abdomen/GI: Inspection: distension, that is moderate, Bowel sounds: active, Palpation: abdomen is soft and non-tender, Liver: no appreciated palpable abnormalities, Hernia: not appreciated. Vital Signs: 20:19 BP 250 / 104; Pulse 95; Resp 18; Temp 98.3; Pulse Ox 100% ; Weight 77.8 kg; Height 5 ll1 ft. 1 in. (154.94 cm); Pain 10/10; 22:00 BP 242 / 102; Pulse 72; Resp 18; Pulse Ox 97% on R/A; wh 23:30 BP 202 / 85; Pulse 88; Resp 16; Pulse Ox 99% on R/A; wh 20:19 Body Mass Index 32.41 (77.80 kg, 154.94 cm) ll1 MDM: 20:15 Patient medically screened. juan 22:57 Differential diagnosis: polypharmacy, over medication, Nonspecific abd pain, gastritis, juan pancreatitis, viral gastroenteritis, gastroenteritis. Data reviewed: vital signs, nurses notes, lab test result(s), EKG, radiologic studies, plain films. Data interpreted: diamond blender: rate is 95 beats/min, rhythm is regular. Test interpretation: by ED physician or midlevel provider: ECG, plain radiologic studies. Counseling: I had a detailed discussion with the patient and/or guardian regarding: the historical points, exam findings, and any diagnostic results supporting the discharge/admit diagnosis, lab results, radiology results. 07/20 20:17 Order name: Acetaminophen; Complete Time: 22:35 juan 07/20 20:17 Order name: Basic Metabolic Panel; Complete Time: :35 juan 07/20 20:17 Order name: CBC with Diff; Complete Time: :35 [facility] 07/20 20:17 Order name: ETOH Level; Complete Time: 22:35 [facility] 07/20 20:17 Order name: Hepatic Function; Complete Time: :35 [facility] 07/20 20:17 Order name: PT-INR; Complete Time: :35 [facility] 07/20 20:17 Order name: Ptt, Activated; Complete Time: 22:35 [facility] 07/20 20:17 Order name: Salicylate; Complete Time: 22:35 [facility] 07/20 20:17 Order name: Urine Drug Screen [facility] 07/20 21:00 Order name: Valproic Acid (depakote); Complete Time: 22:35 [facility] 07/20 22:49 Order name: Magnesium [facility] 07/20 22:49 Order name: NT PRO-BNP [facility] 07/20 22:49 Order name: Troponin (emerg Dept Use Only) [facility] 07/20 22:50 Order name: Magnesium [facility] 07/20 22:35 Order name: Chest Single View XRAY [facility] 07/20 22:50 Order name: NT PRO-BNP [facility] 07/20 22:50 Order name: Troponin (Emerg Dept Use Only) [facility] 07/20 23:12 Order name: Lipase; Complete Time: 23:49 [facility] 07/21 00:12 Order name: CBC with Automated Diff [facility] 07/21 00:12 Order name: CBC with Automated Diff [facility] 07/21 00:12 Order name: Comprehensive Metabolic Panel [facility] 07/21 00:12 Order name: Comprehensive Metabolic Panel [facility] 07/21 00:31 Order name: SARS-COV-2 RT PCR [facility] 07/21 00:41 Order name: Urinalysis [facility] 07/21 08:38 Order name: Glucose, Ancillary Testing [facility] 07/20 20:17 Order name: EKG; Complete Time: 20:18 [facility] 07/20 20:17 Order name: EKG - Nurse/Tech; Complete Time: 20:48 [facility] 07/20 20:17 Order name: IV Saline Lock; Complete Time: 20:42 [facility] 07/20 20:17 Order name: Labs collected and sent; Complete Time: 20:42 [facility] 07/20 20:18 Order name: Misc. Order: call poison control; Complete Time: 20:48 [facility] 07/20 22:49 Order name: Cardiac monitoring; Complete Time: 23:29 [facility] 07/20 22:49 Order name: O2 Per Protocol; Complete Time: 23:29 [facility] 07/20 22:49 Order name: O2 Sat Monitoring; Complete Time: 23:29 [facility] 07/21 00:12 Order name: CONS Pharmacy Consult [facility] 07/21 00:12 Order name: Renal EDMS Administered Medications: 20:55 Not Given (Duplicate Order): NS 0.9% 1000 ml IV at 1 bolus Per protocol; 1000 mL bolus [facility] 20:57 Drug: NS 0.9% 1000 ml Route: IV; Rate: 30 ml/hr; Site: left antecubital; 23:48 Follow up: Response: No adverse reaction; IV Status: Infusion continued upon admission 21:27 Drug: hydrALAZINE 10 mg Route: IV; Rate: per protocol; Site: left antecubital; 23:47 Follow up: Response: No adverse reaction; Blood pressure is unchanged; IV Status: Completed infusion 21:27 Drug: HydrALAZINE 50 mg Route: PO; 23:47 Follow up: Response: No adverse reaction; Blood pressure is lowered 21:30 Drug: Zofran (Ondansetron) 4 mg Route: IVP; Site: left antecubital; 23:47 Follow up: Response: No adverse reaction; Nausea is decreased 23:25 Drug: hydrALAZINE 20 mg Route: IV; Rate: per protocol; Site: right upper arm; 23:46 Follow up: Response: No adverse reaction; Blood pressure is lowered; IV Status: Completed infusion 23:28 Drug: Pepcid 20 mg Route: IVP; Site: right upper arm; 23:46 Follow up: Response: No adverse reaction Disposition: 07/20/20 23:09 Hospitalization ordered by Ladarius Barth for Inpatient Admission. Preliminary diagnosis are Vomiting, Essential (primary) hypertension, End stage renal disease - on hd, Hypokalemia, Type 2 diabetes mellitus, Gastroparesis. - Bed requested for Telemetry/MedSurg (Inpatient). - Status is Inpatient Admission. ss - Condition is Stable. - Problem is new. - Symptoms have improved. Signatures: Dispatcher [employer] EDMS Saida Zepeda RN RN mw Woody, Diana, RN RN dw Anderson, Corey, MD MD cha Smirch, Shelby, RN RN ss Habalo, Winsy, RN RN Georgette Longoria RN RN ll1 Corrections: (The following items were deleted from the chart) 23:14 23:09 Hospitalization Ordered by Ladarius Barth MD for Inpatient Admission. Preliminary [facility] diagnosis is Vomiting; Essential (primary) hypertension; End stage renal disease - on hd. Bed requested for Telemetry/MedSurg (Inpatient). Status is Inpatient Admission. Condition is Stable. Problem is new. Symptoms have improved. juan 23:11 CORONAVIRUS+MR.LAB.GRADYZ ordered. [facility] EDMS 23:45 23:14 07/20/2020 23:09 Hospitalization Ordered by Ladarius Barth MD for Inpatient mw Admission. Preliminary diagnosis is Vomiting; Essential (primary) hypertension; End stage renal disease - on hd; Hypokalemia; Type 2 diabetes mellitus; Gastroparesis. Bed requested for Telemetry/MedSurg (Inpatient). Status is Inpatient Admission. Condition is Stable. Problem is new. Symptoms have improved. ujan 07/21 08:52 07/20 23:45 07/20/2020 23:09 Hospitalization Ordered by Ladarius Barth MD for Inpatient dw Admission. Preliminary diagnosis is Vomiting; Essential (primary) hypertension; End stage renal disease - on hd; Hypokalemia; Type 2 diabetes mellitus; Gastroparesis. Bed requested for [email or web address] ER HOLD. Status is Inpatient Admission. Condition is Stable. Problem is new. Symptoms have improved. 07/21 08:54 08:52 07/20/2020 23:09 Hospitalization Ordered by Ladarius Barth MD for Inpatient dw Admission. Preliminary diagnosis is Vomiting; Essential (primary) hypertension; End stage renal disease - on hd; Hypokalemia; Type 2 diabetes mellitus; Gastroparesis. Bed requested for Telemetry/MedSurg (Inpatient). Status is Inpatient Admission. Condition is Stable. Problem is new. Symptoms have improved. 08:54 07/20/2020 23:09 Hospitalization Ordered by Ladarius Barth MD for Inpatient ss Admission. Preliminary diagnosis is Vomiting; Essential (primary) hypertension; End stage renal disease - on hd; Hypokalemia; Type 2 diabetes mellitus; Gastroparesis. Bed requested for Telemetry/MedSurg (Inpatient). Status is Inpatient Admission. Condition is Stable. Problem is new. Symptoms have improved.
--- NOTE | 2020-07-20 23:10 | ER ---
Nurse's Notes [facility] Name: Cathi Zaldivar Age: 39 yrs Sex: Female : 1980 Arrival Date: 07/20/2020 Time: 20:07 Bed 16 Private MD: Diagnosis: Vomiting;Essential (primary) hypertension;End stage renal disease-on hd;Hypokalemia;Type 2 diabetes mellitus;Gastroparesis Presentation: 07/20 20:19 Chief complaint: Patient states: Accidentally took 6-7 pills of trazodone 150mg at 1845 ll1 tonight. + abd pain with N/V. Denies SI/HI. Coronavirus screen: Client denies travel out of the [place] in the last 14 days. At this time, the client does not indicate any symptoms associated with coronavirus-19. The client reports previous COVID testing was negative. Ebola Screen: Patient denies travel to an Ebola-affected area in the 21 days before illness onset. Initial Sepsis Screen: Does the patient meet any 2 criteria? HR > 90 bpm. No. Patient's initial sepsis screen is negative. Does the patient have a suspected source of infection? Yes: Acute abdominal pain. Risk Assessment: Do you want to hurt yourself or someone else? Patient reports no desire to harm self or others. Onset of symptoms. 20:19 Acuity: JESSICA 2 ll1 20:19 Method Of Arrival: Wheelchair ll1 PARTY PLAN SELLING DISTRIBUTOR: 21:30 LMP N/A - Unknown wh Historical: - Allergies: 20:19 ambien; ll1 20:19 Codeine; ll1 20:19 Demerol; ll1 20:19 GUAIFENESIN; ll1 20:19 Lisinopril; ll1 20:19 Nitrofurantoin Macrocrystal; ll1 20:19 PENICILLINS; ll1 20:19 Prolixin; ll1 20:19 zolpidem tartrate; ll1 - PMHx: 20:19 Gastroparesis; ENCEPHALOPATHY; PERIPHERAL NEUROPATHY; liver failure; HD-TTHSat; ll1 Dialysis; m-w-f; Diabetes - NIDDM; cyclic vomiting syndrome; chronic kidney disease; - PSHx: 20:19 Prosthetic eye; Tubal ligation; ll1 - Immunization history:: Flu vaccine is up to date. - Social history:: Smoking status: Patient reports the use of cigarette tobacco products, smokes one-half pack cigarettes per day. Screenin:00 Abuse screen: Denies threats or abuse. Denies injuries from another. Nutritional screening: No deficits noted. Tuberculosis screening: No symptoms or risk factors identified. Fall Risk None identified. Assessment: 20:30 General: Appears in no apparent distress. uncomfortable, Behavior is calm, cooperative. wh Pain: Complains of pain in abdomen. Neuro: Level of Consciousness is awake, alert, obeys commands, Oriented to person, place, time, situation. Cardiovascular: Capillary refill < 3 seconds. Respiratory: Airway is patent Respiratory effort is even, unlabored, Respiratory pattern is regular, symmetrical. GI: Abdomen is round non-distended, Abd is soft and non tender X 4 quads. Reports lower abdominal pain, upper abdominal pain, nausea, vomiting. : No signs and/or symptoms were reported regarding the genitourinary system. EENT: No signs and/or symptoms were reported regarding the EENT system. Derm: Skin is intact, Skin is pink, warm \T\ dry. Musculoskeletal: Circulation, motion, and sensation intact. 22:00 Reassessment: Patient appears in no apparent distress at this time. No changes from previously documented assessment. Patient and/or family updated on plan of care and expected duration. Pain level reassessed. Patient is alert, oriented x 3, equal unlabored respirations, skin warm/dry/pink. 22:45 Reassessment: PT IV infiltrated, Saida Sekou Sup was able to insert 22 g NARCISO. 23:30 Reassessment: Patient appears in no apparent distress at this time. Patient and/or family updated on plan of care and expected duration. Pain level reassessed. Patient is alert, oriented x 3, equal unlabored respirations, skin warm/dry/pink. MD at bedside explaining POC need for admit. Vital Signs: 20:19 BP 250 / 104; Pulse 95; Resp 18; Temp 98.3; Pulse Ox 100% ; Weight 77.8 kg; Height 5 ll1 ft. 1 in. (154.94 cm); Pain 10/10; 22:00 BP 242 / 102; Pulse 72; Resp 18; Pulse Ox 97% on R/A; wh 23:30 BP 202 / 85; Pulse 88; Resp 16; Pulse Ox 99% on R/A; wh 20:19 Body Mass Index 32.41 (77.80 kg, 154.94 cm) 1 ED Course: 20:07 Patient arrived in ED. cl3 20:15 Luis Sandra MD is Attending Physician. juan 20:17 Rahel Sims, RN is Primary Nurse. 20:18 Arm band placed on Patient placed in an exam room, on a stretcher. 1 20:21 Triage completed. 1 20:31 Notified ED physician of other poison control information. Poison control [place] [phone] (Pham) contacted. Get toxic workup labs, CMP, and EKG. Watch for serotonin syndrome, hypotension, bradycardia, R BBB, prolonged QT, and N/V. Symptomatic and supportive care at this time. If the trazodone is immediate release: watch for 4-6 hours. Extended release: 12-16 hours. Case# [id number]. 20:35 Accessed peripheral vein via ultrasound, utilizing dynamic ultrasound technique using lp1 ,sterile technique, per hospital protocol. Good blood return. Flushes easily. 18g IV. 20:35 Initial lab(s) drawn, by wa, sent to lab. lp1 21:00 Patient has correct armband on for positive identification. Placed in gown. Bed in low wh position. Call light in reach. Side rails up X 1. monitor worker on. Pulse ox on. NIBP on. 21:21 Notified ED physician of a critical lab result(s). Creatinine 9.68. lp1 23:07 Ladarius Barth MD is Hospitalizing Provider. juan 23:32 COVID swab sent to lab. jp3 23:43 Chest Single View XRAY In Process Unspecified. EDMS 23:46 No provider procedures requiring assistance completed. Patient admitted, IV remains in place. 07/21 07:29 Primary Nurse role handed off by Rahel Sims, TABATHA eb Administered Medications: 07/20 20:55 Not Given (Duplicate Order): NS 0.9% 1000 ml IV at 1 bolus Per protocol; 1000 mL bolus [facility] 20:57 Drug: NS 0.9% 1000 ml Route: IV; Rate: 30 ml/hr; Site: left antecubital; 23:48 Follow up: Response: No adverse reaction; IV Status: Infusion continued upon admission 21:27 Drug: hydrALAZINE 10 mg Route: IV; Rate: per protocol; Site: left antecubital; 23:47 Follow up: Response: No adverse reaction; Blood pressure is unchanged; IV Status: Completed infusion 21:27 Drug: HydrALAZINE 50 mg Route: PO; 23:47 Follow up: Response: No adverse reaction; Blood pressure is lowered 21:30 Drug: Zofran (Ondansetron) 4 mg Route: IVP; Site: left antecubital; 23:47 Follow up: Response: No adverse reaction; Nausea is decreased 23:25 Drug: hydrALAZINE 20 mg Route: IV; Rate: per protocol; Site: right upper arm; 23:46 Follow up: Response: No adverse reaction; Blood pressure is lowered; IV Status: Completed infusion 23:28 Drug: Pepcid 20 mg Route: IVP; Site: right upper arm; 23:46 Follow up: Response: No adverse reaction Outcome: 23:09 Decision to Hospitalize by Provider. [facility] 23:46 Admitted to ER Hold. Please see [facility] for further documentation. 23:46 Condition: stable 23:46 Instructed on the need for admit. 07/21 09:31 Patient left the ED. Signatures: Dispatcher [employer] EDMS Luis Sandra MD MD cha Smirch, Shelby, RN RN Hollie Tomas RN RN 1 Rahel Sims RN RN Marquita Lazaro Jacob jp3 Vernon Longoria Lynsay, RN RN ll1 Corrections: (The following items were deleted from the chart) 07/20 20:36 20:31 Notified ED physician of other poison control information. Poison control ll1 Carolyn Holland) contacted. Get toxic workup labs, CMP, and EKG. Watch for serotonin syndrome, hypotension, bradycardia, and N/V. Symptomatic and supportive care at this time. If the trazodone is immediate release: watch for 4-6 hours. Extended release: 12-16 hours. ll1
[2020-07-20] MEDS ORDERED: FAMOTIDINE 20 MG/2 ML VIAL IV ONE (23:30)
[2020-07-20 23:52] LABS: Magnesium 1.6 mg/dL (1.8-2.4); NT PRO-BNP 89297 pg/mL (<125); Troponin (Emerg Dept Use Only) < 0.02 ng/mL (0.0-0.045)
[2020-07-21] MEDS ORDERED: ACETAMINOPHEN 500 MG TAB PO PRN (00:07)
[2020-07-21] MEDS ORDERED: MORPHINE 2 MG/ML SYR IV PRN (00:07)
[2020-07-21] MEDS ORDERED: ONDANSETRON 4 MG/2 ML VIAL IV PRN (00:07)
--- NOTE | 2020-07-21 00:11 | P.HP ---
Certification for Inpatient Patient admitted to: Inpatient With expected LOS: >2 Midnights Practitioner: I am a practitioner with admitting privileges, knowledge of patient current condition, hospital course, and medical plan of care. Services: Services provided to patient in accordance with Admission requirements found in Title 42 Section 412.3 of the Code of Federal Regulations Patient History Date of Service: 07/21/20 Reason for admission: Trazodone Overdose / Intractable Nausea and Vomiting History of Present Illness: 39 yrs old female with past medical history of hypertension, diabetes, diabetic gastroparesis, peripheral neuropathy and hyperlipidemia , ESRD on dialysis, anxiety, depression, bipolar disorder was brought to ER after taking 6 tablets of trazodone tablets by mistake. Denies any chest pain or shortness of breath. Complains of intractable nausea and vomiting. No diarrhea. Complains of abdominal pain which is upper abdominal diffuse. patient also complains of sore throat and generalized weakness. Patient was assessed in the ER and was admitted for further monitoring for possible overdosage At the time of interview patient is drowsy but arousable and complaints of abdominal pain and nausea and has given Zofran. Patient found to have Accelerated hypertension as well . Allergies zolpidem tartrate [From Ambien] Allergy (Intermediate, Verified 10/17/16 23:08) Itching/Hives/Rash codeine [Codeine] Allergy (Verified 10/17/16 23:08) Hives fluphenazine enanthate [From Prolixin] Allergy (Verified 10/17/16 23:08) ARM NUMBNESS fluphenazine HCl [From Prolixin] Allergy (Verified 10/17/16 23:08) ARM NUMBNESS guaifenesin [From Prolex D] Allergy (Verified 10/17/16 23:08) Hives lisinopril Allergy (Verified 04/21/17 10:26) Anaphylaxis Penicillins Allergy (Verified 10/17/16 23:08) Hives phenylephrine HCl [From Prolex D] Allergy (Verified 10/17/16 23:08) Hives nitrofurantoin Adverse Reaction (Verified 08/07/17 23:41) liver failure Home medications list reviewed: Yes Home Medications: Calcium Acetate [Phoslo*] 2 cap PO TIDWM 03/05/20 Calcium Acetate [Phoslo*] 667 mg PO SNACKS 03/05/20 Divalproex Sodium [Divalproex Sodium ER] 500 mg PO BID 03/05/20 Linagliptin [Tradjenta] 5 mg PO DAILY 03/05/20 Sertraline [Zoloft*] 50 mg PO DAILY 03/05/20 Trazodone HCl 100 mg PO BEDTIME PRN PRN 03/05/20 buPROPion HCL [Bupropion Xl] 300 mg PO DAILY 03/05/20 glipiZIDE [Glipizide] 5 mg PO BID 03/05/20 Metoclopramide HCl [Reglan] 1 tab PO Q8HR 20 Days #60 tablet 03/06/20 Pantoprazole Sodium [Protonix] 1 tab PO DAILY 30 Days #30 tablet. 03/06/20 - Past Medical/Surgical History Diabetic: Yes Past Medical History: Reviewed- Non-Contributory -: DM Type 2 -: Seizure disorder -: Chronic renal disease -: DM Gastroparesis -: DM Neuropathy -: Insomnia -: Obesity -: JAYLA -: Hypertension -: Post traumatic stress disorder -: Schizoaffective disorder -: CHF, diastolic Past Surgical History: Reviewed- Non-Contributory -: I/D of the right elbow -: 2 previous C-sections -: Tubal ligation Psychosocial/ Personal History: She is , she has 2 children, she does not work. - Family History Mother -: Hypertension, Diabetes, Cancer, Other (see notes) Notes: hypothyroid, asthma, breast cancer Father -: Diabetes, Cancer Notes: - stomach/ lung/ prostate cancer, diabetes - Social History Smoking Status: Never smoker Alcohol use: No CD- Drugs: No Caffeine use: Yes Review of Systems 10-point ROS is otherwise unremarkable Physical Examination - Vital Signs Temperature: 98.4 F Blood Pressure: 210/108 Pulse: 82 Respirations: 18 - Physical Exam General: Alert, Oriented x3, Mild distress HEENT: Atraumatic, Normocephalic Neck: Supple Respiratory: Clear to auscultation bilaterally, Crackles/rales Cardiovascular: Regular rate/rhythm, Normal S1 S2 Capillary refill: <2 Seconds Gastrointestinal: Soft and benign, W/out hepatosplenomegaly, Tenderness Musculoskeletal: No clubbing, No swelling Integumentary: No rashes Neurological: Normal speech, Normal strength at 5/5 x4 extr Lymphatics: No axilla or inguinal lymphadenopathy - Studies Laboratory Data (last 24 hrs) 07/20/20 21:10: PT 11.6, INR 0.98, APTT 28.6 07/20/20 21:10: WBC 7.00, Hgb 8.9 L, Hct 25.9 L, Plt Count 108 L 07/20/20 20:35: Lipase 90 07/20/20 20:35: Magnesium 1.6 L 07/20/20 20:35: Sodium 136, Potassium 3.1 L, BUN 70 H, Creatinine 9.68 H*, Glucose 227 H, Total Bilirubin 0.6, AST 20, ALT 15, Alkaline Phosphatase 64 Assessment and Plan - Problems (Diagnosis) (1) Abdominal pain Onset Date: 08/03/16 Current Visit: No Status: Acute Qualifiers: Abdominal location: epigastric Qualified Code(s): R10.13 - Epigastric pain (2) Chronic kidney disease, stage 5, kidney failure Onset Date: 08/09/17 Current Visit: No Status: Acute (3) Congestive heart failure, diastolic, left, w/preserved LV function, NYHA class 4 Onset Date: 08/09/17 Current Visit: No Status: Acute (4) Intractable vomiting Onset Date: 10/19/16 Current Visit: No Status: Acute (5) Gastroesophageal reflux disease Onset Date: 08/09/17 Current Visit: No Status: Chronic Qualifiers: Esophagitis presence: esophagitis presence not specified Qualified Code(s): K21.9 - Gastro-esophageal reflux disease without esophagitis (6) Hypertension Onset Date: 10/19/16 Current Visit: No Status: Chronic Qualifiers: Hypertension type: essential hypertension Qualified Code(s): I10 - Essential (primary) hypertension (7) Obesity Onset Date: 06/08/16 Current Visit: No Status: Chronic Qualifiers: Obesity type: unspecified obesity type (8) Obstructive sleep apnea Onset Date: 06/08/16 Current Visit: No Status: Chronic (9) Personality disorder Current Visit: No Status: Chronic (10) Psychotic depression Current Visit: No Status: Chronic (11) Schizoaffective disorder Onset Date: 06/08/16 Current Visit: No Status: Chronic Qualifiers: Schizoaffective disorder type: unspecified Qualified Code(s): F25.9 - Schizoaffective disorder, unspecified (12) Severe hypertension Onset Date: 08/03/16 Current Visit: No Status: Chronic (13) Uncontrolled diabetes mellitus Onset Date: 07/08/15 Current Visit: No Status: Chronic Qualifiers: Diabetes mellitus type: type 2 - Plan Trazodone overdosage Intractable nausea and vomiting Diffuse abdominal pain ESRD on dialysis Hypokalemia Hypomagnesemia Accelerated hypertension Diabetes mellitus History of gastroparesis and Diabetic neuropathy Plan Monitor under telemetry Watch for any arrhythmia as closely Zofran p.r.n. for nausea Replace electrolytes Insulin sliding scale. Pain control Will get a nephrology consult. Antihypertensives titrated Continue home medications and titrate as needed GI/DVT prophylaxis - Advance Directives Does patient have a Living Will: No Does patient have a Durable POA for Healthcare: No Time Spent Managing Pts Care (In Minutes): 42
[2020-07-21] MEDS ORDERED: D50W 25 GM/50 ML SYRINGE IV PRN (00:22)
[2020-07-21] MEDS ORDERED: GLUCAGON 1 MG/VIAL IM PRN (00:22)
[2020-07-21] MEDS: HEPARIN 5000 UNIT/ML 1 ML VIAL SQ SCH ×3 (01:00→18:03)
[2020-07-21 03:21] VITALS: BMI 32.3
[2020-07-21] MEDS: HYDRALAZINE HCL 20 MG/ML VIAL IV PRN ×2 (03:55→08:55)
[2020-07-21] MEDS ORDERED: HEPARIN 5000 UNIT/ML 1 ML VIAL ONE ×2 (04:01→09:00)
[2020-07-21] MEDS ORDERED: HYDRALAZINE HCL 20 MG/ML VIAL ONE ×2 (04:01→09:00)
[2020-07-21] MEDS ORDERED: D50W 25 GM/50 ML VIAL IV PRN (08:00)
--- NOTE | 2020-07-21 08:47 | RAD REPORT ---
EXAM DESCRIPTION: Nisha Single View07/20/2020 11:43 pm CLINICAL HISTORY: Cough COMPARISON: Jul 03, 2020 FINDINGS: The lungs appear clear of acute infiltrate. The heart is normal size IMPRESSION: No acute abnormalities displayed
[2020-07-21] MEDS: INSULIN -REGULAR HUMAN 50 UNIT/0.5 ML ML SQ SCH ×4 (08:55→20:35)
[2020-07-21] MEDS ORDERED: INSULIN -REGULAR HUMAN 50 UNIT/0.5 ML ML ONE (09:01)
[2020-07-21] MEDS ORDERED: PNEUMOCOCCAL VACCINE 0.5 ML IMVAC ONE (10:00)
[2020-07-21] MEDS ORDERED: CLONIDINE HCL 0.3 MG TAB PO ONE (11:27)
[2020-07-21] MEDS ORDERED: POTASSIUM CL SA 10 MEQ TAB PO ONE (12:00)
[2020-07-21] MEDS ORDERED: HOME MED 1 EA UNK (Trazodone Hcl [Trazodone Hcl] 100 MG Tablet) PO PRN (14:30)
[2020-07-21] MEDS ORDERED: TRAZODONE 50 MG TABLET PO PRN (15:11)
[2020-07-21] MEDS ORDERED: PROMETHAZINE INJ 25 MG/ML AMP IM ONE (16:00)
[2020-07-21] MEDS: glipiZIDE 5 MG TAB PO SCH (17:00)
[2020-07-21] MEDS: CALCIUM ACETATE 667 MG TAB PO SCH ×2 (18:03→20:34)
[2020-07-21] MEDS: cloNIDine HCL 0.1 MG TAB PO SCH ×2 (18:03→20:38)
[2020-07-21] MEDS: METOCLOPRAMIDE 5 MG TAB PO SCH (18:04)
[2020-07-21 19:51] LABS: Barbiturates NEGATIVE (NEGATIVE); Benzodiazepines NEGATIVE (NEGATIVE); Cocaine NEGATIVE (NEGATIVE); METHAMPHETAM NEGATIVE (NEGATIVE); Methadone NEGATIVE (NEGATIVE); Opiates NEGATIVE (NEGATIVE); Phencyclidine NEGATIVE (NEGATIVE); THC Cannibis NEGATIVE (NEGATIVE)
[2020-07-21] MEDS: DIVALPROEX ER 250 MG TAB PO SCH (20:34)
[2020-07-21] MEDS ORDERED: HOME MED 1 EA UNK (Divalproex Sodium [Divalproex Sodium Er] 500 MG Tab.Er.24h) PO SCH (21:00)
[2020-07-22] MEDS: HEPARIN 5000 UNIT/ML 1 ML VIAL SQ SCH ×3 (00:20→16:34)
[2020-07-22] MEDS: METOCLOPRAMIDE 5 MG TAB PO SCH ×3 (00:21→16:34)
[2020-07-22 05:52] LABS: Absolute Lymphocytes (CBC) 1.4 K/uL (0.7-4.9); Basophils % 0.9 % (0-1.3); Hematocrit 25.1 % (36.0-45.0); Lymphocytes % 22.2 % (15.3-44.8); MPV 11.6 fL (7.6-11.3); RBC Red Blood Cell Count 2.59 M/uL (3.86-4.86)
[2020-07-22 06:06] LABS: Phosphorus 5.3 mg/dL (2.5-4.9)
[2020-07-22 06:16] LABS: Albumin 2.7 g/dL (3.4-5.0); Bilirubin Total 0.5 mg/dL (0.2-1.0); Potassium 3.9 mmol/L (3.5-5.1); Protein, Total 5.8 g/dL (6.4-8.2)
[2020-07-22] MEDS ORDERED: PANTOPRAZOLE 40MG TABLET PO SCH (07:30)
[2020-07-22] MEDS ORDERED: NA CHLORIDE 0.9% 1,000 ML IV PRN (07:31)
[2020-07-22] MEDS ORDERED: MANNITOL 25% 12.5 GM/50 ML VIAL IV PRN (07:31)
[2020-07-22] MEDS ORDERED: ALBUMIN HUMAN 25% 50 ML IV SCH (08:00)
--- NOTE | 2020-07-22 08:21 | EKG ---
Test Date: 2020-07-20 Test Time: 20:52:37 Managed Services Sales Consultant: MEASUREMENT RESULTS: Intervals: Rate: 83 CO: 150 QRSD: 82 QT: 418 QTc: 491 [place]: P: 70 CO: 150 QRS: 9 T: 63 INTERPRETIVE STATEMENTS: Normal sinus rhythm Prolonged QT Abnormal ECG Compared to ECG 06/13/2020 15:22:22 No significant changes Electronically Signed On 07-22-20 08:17:58 BOARDING 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 by Juan Hogan
[2020-07-22] MEDS: INSULIN -REGULAR HUMAN 50 UNIT/0.5 ML ML SQ SCH ×3 (08:29→16:34)
[2020-07-22] MEDS: CALCIUM ACETATE 667 MG TAB PO SCH ×4 (08:34→16:34)
[2020-07-22] MEDS: DIVALPROEX ER 250 MG TAB PO SCH (08:34)
[2020-07-22] MEDS: cloNIDine HCL 0.1 MG TAB PO SCH ×2 (08:35→15:08)
[2020-07-22] MEDS: glipiZIDE 5 MG TAB PO SCH ×2 (08:36→16:34)
[2020-07-22] MEDS ORDERED: HOME MED 1 EA UNK (Bupropion Hcl [Bupropion Xl] 300 MG Tab.Er.24h) PO SCH (09:00)
[2020-07-22] MEDS ORDERED: BUPROPION HCL XL 150 MG TAB PO SCH (09:00)
[2020-07-22] MEDS ORDERED: HOME MED 1 EA UNK (Pantoprazole Sodium [Protonix] 20 MG Tablet.Dr) PO SCH (09:00)
[2020-07-22] MEDS ORDERED: Linagliptin [Tradjenta] 5 MG Tablet PO SCH (09:00)
[2020-07-22] MEDS ORDERED: SERTRALINE HCL 50 MG TAB PO SCH (09:00)
[2020-07-22 09:56] VITALS: O2SAT 95
--- NOTE | 2020-07-22 13:27 | P.DS ---
Admission Date: 07/21/20 Discharge Date: 07/22/20 Primary Care Provider: Dr. Morin Disposition: ROUTINE DISCHARGE Discharge Condition: GOOD Reason for Admission: Trazodone Overdose / Intractable Nausea and Vomiting Consultations: Nephrology-Dr. Morin Procedures: Medical problem list: Accidental trazodone overdose with noted nausea vomiting Depression with anxiety End-stage stage disease on hemodialysis Diabetes mellitus type 2 HTN Diabetic gastroparesis Diabetic neuropathy Brief History of Present Illness: 39-year-old female with history of hypertension, diabetes mellitus type 2, diabetic gastroparesis, peripheral neuropathy, end-stage renal disease on hemodialysis, depression with anxiety. Patient presented after taking 6 tablets of trazodone by mistake. Patient had increased somnolence. The patient was admitted for further evaluation. Hospital Course: Patient presented with trazodone overdose. Patient accidentally took extra medication of trazodone. Patient had increased somnolence. Some nausea vomiting were noted. Patient was monitored Overnite. Patient is not suicidal. She understands what she did was a mistake. Patient did receive dialysis. At discharge patient at baseline mentation. Patient with underlying depression with anxiety. At discharge she will continue with her medications including Zoloft 50 mg daily, Bupropion XL 300 mg daily, Depakote 500 mg 1 pill twice daily, and trazodone 100 mg at bedtime. Recommend that the patient use a pillbox to make sure that she takes the appropriate medication at the appropriate time. As mentioned above patient with history of end-stage renal disease on hemodialysis. Patient will continue with dialysis as directed. Recommend follow up with Nephrology to further monitor and address. Patient with diabetes mellitus type 2. At discharge she will continue with her medications including glipizide 5 mg 1 pill twice daily and Tradjenta 5 mg daily. Recommend to maintain blood sugar less than 140 fasting and less 200 after meals. Further adjustment can be done by her PCP. Patient with hypertension. At discharge she will continue with her current medication. Recommend to maintain blood pressure less than 130/80. Further adjustment can be done by her PCP or nephrology. Patient with diabetic gastroparesis and diabetic neuropathy. At discharge she will continue with her medications including Reglan as directed. Recommend follow up with GI to further monitor and address. Vital Signs/Physical Exam: Temp Pulse Resp BP Pulse Ox 97.7 F 70 20 184/82 H 93 02/01/21 08:00 07/22/20 08:00 07/22/20 08:00 07/22/20 08:00 07/22/20 08:00 General: Alert, In no apparent distress, Oriented x3, Cooperative HEENT: Atraumatic Neck: Supple Respiratory: Clear to auscultation bilaterally, Normal air movement Cardiovascular: Normal pulses, Regular rate/rhythm Gastrointestinal: Normal bowel sounds, Soft and benign, Non-distended, No masses, No rebound, No guarding Neurological: Normal speech, Normal strength at 5/5 x4 extr, Normal tone, Normal affect Laboratory Data at Discharge: WBC 6.50 K/uL (4.3-10.9) 07/22/20 05:08 Hgb 8.2 g/dL (12.0-15.0) L 07/22/20 05:08 Hct 25.1 % (36.0-45.0) L 07/22/20 05:08 Plt Count 138 K/uL (152-406) L D 07/22/20 05:08 PT 11.6 SECONDS (9.5-12.5) 07/20/20 21:10 INR 0.98 07/20/20 21:10 APTT 28.6 SECONDS (24.3-36.9) 07/20/20 21:10 Sodium 136 mmol/L (136-145) 07/22/20 05:08 Potassium 3.9 mmol/L (3.5-5.1) 07/22/20 05:08 BUN 73 mg/dL (7-18) H 07/22/20 05:08 Creatinine 10.40 mg/dL (0.55-1.3) H* 07/22/20 05:08 Glucose 189 mg/dL (74-106) H 07/22/20 05:08 Phosphorus Cancelled 07/22/20 05:22 Magnesium 2.0 mg/dL (1.8-2.4) 07/22/20 05:08 Total Bilirubin 0.5 mg/dL (0.2-1.0) 07/22/20 05:08 AST 13 U/L (15-37) L 07/22/20 05:08 ALT 10 U/L (12-78) L 07/22/20 05:08 Alkaline Phosphatase 43 U/L (45-117) L 07/22/20 05:08 Lipase 90 U/L (73-393) 07/20/20 20:35 Home Medications: Calcium Acetate [Phoslo*] 2 cap PO TIDWM 03/05/20 Calcium Acetate [Phoslo*] 667 mg PO SNACKS 03/05/20 Divalproex Sodium [Divalproex Sodium ER] 500 mg PO BID 03/05/20 Linagliptin [Tradjenta] 5 mg PO DAILY 03/05/20 Sertraline [Zoloft*] 50 mg PO DAILY 03/05/20 Trazodone HCl 100 mg PO BEDTIME PRN PRN 03/05/20 buPROPion HCL [Bupropion Xl] 300 mg PO DAILY 03/05/20 glipiZIDE [Glipizide] 5 mg PO BID 03/05/20 Metoclopramide HCl [Reglan] 1 tab PO Q8HR 20 Days #60 tablet 03/06/20 Pantoprazole Sodium [Protonix] 1 tab PO DAILY 30 Days #30 tablet. 03/06/20 Physician Discharge Instructions: Follow up with PCP in 1 week to follow up this hospitalization. Patient presented with trazodone overdose. Patient accidentally took extra medication of trazodone. Patient had increased somnolence. Some nausea vomiting were noted. Patient was monitored Overnite. Patient is not suicidal. She understands what she did was a mistake. Patient did receive dialysis. At discharge patient at baseline mentation. Patient with underlying depression with anxiety. At discharge she will continue with her medications including Zoloft 50 mg daily, Bupropion XL 300 mg daily, Depakote 500 mg 1 pill twice daily, and trazodone 100 mg at bedtime. Recommend that the patient use a pillbox to make sure that she takes the appropriate medication at the appropriate time. As mentioned above patient with history of end-stage renal disease on hemodialysis. Patient will continue with dialysis as directed. Recommend follow up with Nephrology to further monitor and address. Patient with diabetes mellitus type 2. At discharge she will continue with her medications including glipizide 5 mg 1 pill twice daily and Tradjenta 5 mg daily. Recommend to maintain blood sugar less than 140 fasting and less 200 after meals. Further adjustment can be done by her PCP. Patient with hypertension. At discharge she will continue with her current medication. Recommend to maintain blood pressure less than 130/80. Further adjustment can be done by her PCP or nephrology. Patient with diabetic gastroparesis and diabetic neuropathy. At discharge she will continue with her medications including Reglan as directed. Recommend follow up with GI to further monitor and address. Diet: ADA Activity: Ad monique Followup: NONE,NONE [Primary Care Provider] - Time spent managing pt's care (in minutes): 55
[2020-07-22 17:18] VITALS: BP 124/78; TEMP 96.9
--- NOTE | 2020-07-22 20:55 | P.CNS ---
Date of Consult: 07/22/20 Reason for Consult: ESRD Requesting Physician: Enrique Villeda Primary Care Provider: Dr. Morin Chief Complaint: Trazodone Overdose / Intractable Nausea and Vomiting History of Present Illness: 39 yrs old female with past medical history of hypertension, diabetes, diabetic gastroparesis, peripheral neuropathy and hyperlipidemia , ESRD on dialysis, anxiety, depression, bipolar disorder was brought to ER after taking 6 tablets of trazodone tablets by mistake. Denies any chest pain or shortness of breath. Complains of intractable nausea and vomiting. No diarrhea. Complains of abdominal pain which is upper abdominal diffuse. patient also complains of sore throat and generalized weakness. 22:49 This 39 yrs old Female presents to ER via Wheelchair with complaints of juan Accidental Overdose. 22:50 The patient presents to the emergency department after a known overdose, that was juan accidental, TOOK TRAZADONE 6 TABS BY MISTAKE,MISSED DIALYSIS TODAY WELL. Context: Method: the patient has a confirmed or suspected ingestion, TRAZADONE. Associated signs and symptoms: Pertinent positives: nausea, shortness of breath. Severity of symptoms: At their worst the symptoms were mild moderate. The patient has exp erienced similar episodes in the past, several times. Allergies zolpidem tartrate [From Ambien] Allergy (Intermediate, Verified 10/17/16 23:08) Itching/Hives/Rash codeine [Codeine] Allergy (Verified 10/17/16 23:08) Hives fluphenazine enanthate [From Prolixin] Allergy (Verified 10/17/16 23:08) ARM NUMBNESS fluphenazine HCl [From Prolixin] Allergy (Verified 10/17/16 23:08) ARM NUMBNESS guaifenesin [From Prolex D] Allergy (Verified 10/17/16 23:08) Hives lisinopril Allergy (Verified 04/21/17 10:26) Anaphylaxis Penicillins Allergy (Verified 10/17/16 23:08) Hives phenylephrine HCl [From Prolex D] Allergy (Verified 10/17/16 23:08) Hives nitrofurantoin Adverse Reaction (Verified 08/07/17 23:41) liver failure Home medications list reviewed: Yes Home Medications: Calcium Acetate [Phoslo*] 2 cap PO TIDWM 03/05/20 Calcium Acetate [Phoslo*] 667 mg PO SNACKS 03/05/20 Divalproex Sodium [Divalproex Sodium ER] 500 mg PO BID 03/05/20 Linagliptin [Tradjenta] 5 mg PO DAILY 03/05/20 Sertraline [Zoloft*] 50 mg PO DAILY 03/05/20 Trazodone HCl 150 mg PO BEDTIME PRN PRN 03/05/20 buPROPion HCL [Bupropion Xl] 300 mg PO DAILY 03/05/20 glipiZIDE [Glipizide] 5 mg PO BID 03/05/20 Metoclopramide HCl [Reglan] 1 tab PO Q8HR 20 Days #60 tablet 03/06/20 Pantoprazole Sodium [Protonix] 1 tab PO DAILY 30 Days #30 tablet. 03/06/20 Gabapentin 1 tab PO BID 07/22/20 Metoprolol Succinate 50 mg PO DAILY 07/22/20 Pravastatin Sodium 1 tab PO DAILY 07/22/20 - Past Medical/Surgical History Diabetic: Yes -: DM Type 2 -: Seizure disorder -: Chronic renal disease -: DM Gastroparesis -: DM Neuropathy -: Insomnia -: Obesity -: JAYLA -: Hypertension -: Post traumatic stress disorder -: Schizoaffective disorder -: CHF, diastolic -: I/D of the right elbow -: 2 previous C-sections -: Tubal ligation Psychosocial/ Personal History: She is , she has 2 children, she does not work. - Family History Mother Medical History: Hypertension, Diabetes, Cancer, Other (see notes) Notes: hypothyroid, asthma, breast cancer Father Medical History: Diabetes, Cancer Notes: - stomach/ lung/ prostate cancer, diabetes - Social History Smoking Status: Current every day smoker Alcohol use: No CD- Drugs: No Caffeine use: Yes Place of Residence: Home Review of Systems 10-point ROS is otherwise unremarkable Physical Examination Temp Pulse Resp BP Pulse Ox 96.9 F 68 16 124/78 95 07/22/20 16:00 07/22/20 16:00 07/22/20 16:00 07/22/20 16:00 07/22/20 16:00 General: In no apparent distress, Oriented x3, Cooperative HEENT: Atraumatic Neck: Supple Respiratory: Clear to auscultation bilaterally Cardiovascular: No edema, Regular rate/rhythm Gastrointestinal: Soft and benign, Non-distended Musculoskeletal: No clubbing, No contractures Integumentary: No rashes, No cyanosis Neurological: Normal speech Blood work reviewed in the chart. Imagings Data: EXAM DESCRIPTION: Nisha Single View07/20/2020 11:43 pm CLINICAL HISTORY: Cough COMPARISON: Jul 03, 2020 FINDINGS: The lungs appear clear of acute infiltrate. The heart is normal size IMPRESSION: No acute abnormalities displayed Conclusions/Impression: A/ ESRD on HD Hypokalemia Hypomagnesemia HTN with CKD/ CHF Diastolic CHF, chronic DM II with CKD and Polyneuropathy Moderate malnutrition Anemia in chronic illness DUSTIN/ Secondary HyperPTH P/ Continue current POC and Medications Acute HD ordered. Give Retacrit. Replete potassium. Replete magnesium. Low sodium/ ADA diet. Protein supplementation recommended. Restart Phoslo. No NSAIDs. AM labs. Daily weight. Thank you kindly for the consultation.
--- NOTE | 2020-07-23 22:00 | P.PN ---
Subjective Date of Service: 07/21/20 Patient still very lethargic and not really waking a well. She will stay in the hospital overnight. Review of Systems 10-point ROS is otherwise unremarkable Physical Examination - Vital Signs Temperature: 96.9 F Blood Pressure: 124/78 Pulse: 68 Respirations: 16 Pulse Ox (%): 95 - Physical Exam General: Alert, In no apparent distress, Confused Respiratory: Diminished, Crackles/rales Cardiovascular: Regular rate/rhythm, Normal S1 S2, No murmurs Gastrointestinal: Normal bowel sounds, Soft and benign, Non-distended, No tenderness Musculoskeletal: No clubbing, No swelling, No tenderness - Studies Medications List Reviewed: Yes Assessment & Plan - Problems (Diagnosis) (1) Overdose Status: Acute (2) ESRD (end stage renal disease) Status: Acute (3) Bipolar 1 disorder Onset Date: 10/14/16 Status: Chronic (4) CHF (congestive heart failure) Onset Date: 10/19/16 Status: Chronic Qualifiers: Heart failure type: diastolic Heart failure chronicity: chronic Qualified Code(s): I50.32 - Chronic diastolic (congestive) heart failure (5) COPD (chronic obstructive pulmonary disease) Onset Date: 08/09/17 Status: Chronic Qualifiers: COPD type: chronic bronchitis Chronic bronchitis type: unspecified Qualified Code(s): J42 - Unspecified chronic bronchitis (6) Diabetes mellitus type II, uncontrolled Onset Date: 02/09/17 Status: Chronic (7) Diabetic gastroparesis Onset Date: 10/19/16 Status: Chronic - Plan Plan: 1. Monitor labs closely 2. Nephrology consultation 3. Aspiration precautions 4. Antiemetics 5. Pain control 6. GI and DVT prophylaxis Discharge Plan: Home Plan to discharge in: 24 Hours - Advance Directives Does patient have a Living Will: No Does patient have a Durable POA for Healthcare: No - Code Status/Comfort Care Code Status Assessed: Yes Code Status: Full Code Critical Care: No Time Spent Managing PTS Care (In Minutes): 30
== END 2020-07-22 17:48 | disposition home or self-care (01) ==
LOC: ER 20:06 → INTOOBSV 07-21 01:07 → ERHOLD 07-21 01:07 → 2ND 07-21 09:21
PROVIDERS: ADMIT Family Medicine; ATTEND Family Medicine
DX: T43.211A Poisoning by selective serotonin and norepinephrine reuptake inhibitors, accidental (unintentional), initial encounter (principal); R11.2 Nausea with vomiting, unspecified; F41.8 Other specified anxiety disorders; E11.22 Type 2 diabetes mellitus with diabetic chronic kidney disease; E11.65 Type 2 diabetes mellitus with hyperglycemia; I13.2 Hypertensive heart and chronic kidney disease with heart failure and with stage 5 chronic kidney disease, or end stage renal disease; N18.6 End stage renal disease; I50.32 Chronic diastolic (congestive) heart failure; N17.9 Acute kidney failure, unspecified; Z99.2 Dependence on renal dialysis; E87.6 Hypokalemia; E83.42 Hypomagnesemia; D63.1 Anemia in chronic kidney disease; N25.0 Renal osteodystrophy; N25.81 Secondary hyperparathyroidism of renal origin; E44.0 Moderate protein-calorie malnutrition; K31.84 Gastroparesis; E11.43 Type 2 diabetes mellitus with diabetic autonomic (poly)neuropathy; G40.909 Epilepsy, unspecified, not intractable, without status epilepticus; G47.33 Obstructive sleep apnea (adult) (pediatric); G47.00 Insomnia, unspecified; K21.9 Gastro-esophageal reflux disease without esophagitis; F43.10 Post-traumatic stress disorder, unspecified; F25.9 Schizoaffective disorder, unspecified; F31.9 Bipolar disorder, unspecified; J44.9 Chronic obstructive pulmonary disease, unspecified; F17.210 Nicotine dependence, cigarettes, uncomplicated; E66.9 Obesity, unspecified; Z68.32 Body mass index [BMI] 32.0-32.9, adult; Z20.822 Contact with and (suspected) exposure to COVID-19; Z88.6 Allergy status to analgesic agent; Z88.0 Allergy status to penicillin; Z88.8 Allergy status to other drugs, medicaments and biological substances; Z88.3 Allergy status to other anti-infective agents; Z82.49 Family history of ischemic heart disease and other diseases of the circulatory system; Z83.3 Family history of diabetes mellitus; Z80.3 Family history of malignant neoplasm of breast; Z82.5 Family history of asthma and other chronic lower respiratory diseases; Z80.0 Family history of malignant neoplasm of digestive organs; Z80.1 Family history of malignant neoplasm of trachea, bronchus and lung; Z80.42 Family history of malignant neoplasm of prostate
CPT/HCPCS: 93005; 85025 ×2; 80048; 36415 ×2; 80320; 83735 ×2; 80329 ×2; 84100; 85610; 82947 ×7; 80076; 80164 ×2; 80307 ×8; 85730; 83036; 84484; 83690; 80053; 83880; 71045; 94760 ×3; 99285; U0003; J0360 ×4; J1644 ×7; J7030; J2405

== ENCOUNTER 2020-08-04 15:32 | Emergency (ER) | payer OTHER ==
[2020-08-04] MEDS ORDERED: HYDRALAZINE HCL 20 MG/ML VIAL ONE ×2 (18:56→21:15)
[2020-08-04 19:37] LABS: Absolute Lymphocytes (CBC) 1.5 K/uL (0.7-4.9); Basophils % 1.3 % (0-1.3); Hematocrit 25.8 % (36.0-45.0); Lymphocytes % 32.2 % (15.3-44.8); MPV 11.3 fL (7.6-11.3); RBC Red Blood Cell Count 2.76 M/uL (3.86-4.86)
[2020-08-04] MEDS ORDERED: MORPHINE 4 MG/ML SYR ONE (19:56)
[2020-08-04 20:06] LABS: Potassium 4.2 mmol/L (3.5-5.1)
--- NOTE | 2020-08-04 20:54 | ER ---
Nurse's Notes [facility] Name: Cathi Zaldivar Age: 39 yrs Sex: Female : 1980 Arrival Date: 08/04/2020 Time: 15:33 Bed 15 Private MD: Diagnosis: Headache;Low back pain Presentation: 08/04 15:54 Chief complaint: Patient states: No dialysis for 2 weeks. (No ride) She went today, ll1 they told her to come to ER for eval. then she can get dialysis scheduled again. + low back pain and KO. Coronavirus screen: Client denies travel out of the [place] in the last 14 days. At this time, the client does not indicate any symptoms associated with coronavirus-19. Ebola Screen: Patient denies travel to an Ebola-affected area in the 21 days before illness onset. Initial Sepsis Screen: Does the patient meet any 2 criteria? No. Patient's initial sepsis screen is negative. Does the patient have a suspected source of infection? Yes: Other: kidneys. Risk Assessment: Do you want to hurt yourself or someone else? Patient reports no desire to harm self or others. Onset of symptoms was July 30, 2020. 15:54 Method Of Arrival: Ambulatory ll1 15:54 Acuity: JESSICA 2 ll1 Historical: - Allergies: 15:54 ambien; ll1 15:54 Codeine; ll1 15:54 Demerol; ll1 15:54 Lisinopril; ll1 15:54 Nitrofurantoin Macrocrystal; ll1 15:54 PENICILLINS; ll1 15:54 Prolixin; ll1 15:54 zolpidem tartrate; ll1 15:54 GUAIFENESIN; ll1 - PMHx: 15:54 chronic kidney disease; liver failure; HD-TTHSat; ENCEPHALOPATHY; cyclic vomiting ll1 syndrome; Dialysis; m-w-f; Diabetes - NIDDM; Gastroparesis; PERIPHERAL NEUROPATHY; - PSHx: 15:54 Prosthetic eye; Tubal ligation; ll1 - Immunization history:: Flu vaccine is up to date. - Social history:: Smoking status: Patient reports the use of cigarette tobacco products, smokes one-half pack cigarettes per day. Screenin:34 Abuse screen: Denies threats or abuse. Nutritional screening: No deficits noted. vg1 Tuberculosis screening: No symptoms or risk factors identified. Fall Risk No fall in past 12 months (0 pts). No secondary diagnosis (0 pts). IV access (20 points). Ambulatory Aid- None/Bed Rest/Nurse Assist (0 pts). Gait- Normal/Bed Rest/Wheelchair (0 pts) Mental Status- Oriented to own ability (0 pts). Total Rios Fall Scale indicates No Risk (0-24 pts). Assessment: 18:32 General: Appears in no apparent distress. comfortable, Behavior is calm, cooperative. vg1 Pain: Complains of pain in back Pain currently is 7 out of 10 on a pain scale. Neuro: Level of Consciousness is awake, alert, obeys commands, Oriented to person, place, time, situation. Cardiovascular: Patient's skin is warm and dry. Dialysis shunt: in the right arm, with palpable thrill, with auscultated bruit. Respiratory: Airway is patent Respiratory effort is even, unlabored, Respiratory pattern is regular, symmetrical. GI: Reports normal bowel habits. : No signs and/or symptoms were reported regarding the genitourinary system. EENT: No signs and/or symptoms were reported regarding the EENT system. Derm: Skin is pink, warm \T\ dry. Musculoskeletal: Circulation, motion, and sensation intact. 20:52 Reassessment: Patient appears in no apparent distress at this time. Patient and/or vg1 family updated on plan of care and expected duration. Pain level reassessed. Patient is alert, oriented x 3, equal unlabored respirations, skin warm/dry/pink. Patient denies pain at this time. 20:54 Reassessment: Received VO from Anand CHEATHAM to administer Hydralazine 10 mg IVP x1. vg1 21:45 Reassessment: Patient appears in no apparent distress at this time. Patient is alert, lp1 oriented x 3, equal unlabored respirations, skin warm/dry/pink. Patient demonstrates understanding of discharge instructions. Vital Signs: 15:54 BP 191 / 120; Pulse 89; Resp 18; Temp 97.6; Pulse Ox 100% ; Weight 72.4 kg; Height 5 ll1 ft. 1 in. (154.94 cm); Pain 8/10; 18:33 BP 224 / 104; Pulse 89; Resp 18; Pulse Ox 100% on R/A; vg1 19:30 BP 165 / 119; Pulse 90; Resp 18; Pulse Ox 100% on R/A; vg1 20:30 BP 224 / 113; Pulse 80; Resp 14; Pulse Ox 100% on R/A; vg1 21:45 BP 198 / 110; Pulse 88; Resp 20; Pulse Ox 100% on R/A; lp1 15:54 Body Mass Index 30.16 (72.40 kg, 154.94 cm) ll1 ED Course: 15:33 Patient arrived in ED. pm1 15:53 Arm band placed on. ll1 15:57 Triage completed. ll1 18:07 Jennifer Antonio, RN is Primary Nurse. vg1 18:08 [facility] pm1 18:08 Obed Contreras MD is Attending Physician. pm1 18:33 EKG done, by ED staff. vg1 18:34 Patient has correct armband on for positive identification. Bed in low position. Call vg1 light in reach. Side rails up X 1. 19:25 Inserted saline lock: midline [id number] KARTIK. rv 19:25 Initial lab(s) drawn, by pr, sent to lab. rv 21:45 No provider procedures requiring assistance completed. IV discontinued, bleeding lp1 controlled, No redness/swelling at site. Pressure dressing applied. Administered Medications: 19:52 Drug: morphine 4 mg Route: IVP; Site: left upper arm; vg1 20:52 Follow up: Response: Pain is decreased vg1 19:53 Not Given (BP has lowered 165/119. Provider notified): hydrALAZINE 10 mg IV at vg1 calculated rate once 21:02 Drug: hydrALAZINE 10 mg Route: IV; Rate: calculated rate; Site: left upper arm; vg1 22:08 Follow up: IV Status: Completed infusion vg1 Outcome: 20:54 Discharge ordered by MD. pm1 21:45 Discharged to home via wheelchair, with family. lp1 21:45 Condition: good 21:45 Discharge instructions given to patient, Instructed on discharge instructions, follow up and referral plans. Demonstrated understanding of instructions, follow-up care. 22:01 Patient left the ED. mw2 Signatures: Hollie Tomas RN RN lp1 Darleen Tucker RN RN Anand Gallo NP [employer] pm1 Anil Sterling mw2 Isaac Gerardo, RN RN rv Jennifer Antonio, RN RN vg1 Georgette Longoria RN RN ll1 Corrections: (The following items were deleted from the chart) : Inserted saline lock: midline [id number] KARTIK ph rv : Initial lab(s) drawn, by me, by EMS personnel. ph ph : Initial lab(s) drawn, by me, sent to lab. ph rv
--- NOTE | 2020-08-04 20:55 | EDPHYS ---
Physician Documentation [facility] Name: Cathi Zaldivar Age: 39 yrs Sex: Female : 1980 Arrival Date: 08/04/2020 Time: 15:33 Bed 15 Private MD: ED Physician Obed Contreras HPI: 08/04 18:38 This 39 yrs old Female presents to ER via Ambulatory with complaints of Needs pm1 Evalutaion for Dialysis. 18:38 Onset: The symptoms/episode began/occurred 2 week(s) ago. Associated signs and pm1 symptoms: Pertinent negatives: abdominal pain, chest pain, cough, diarrhea, fever, shortness of breath, vomiting. Patient reports difficulty with getting a ride to her dialysis for the past two weeks. She has an appointment on Wednesday at 6:30 for her dialysis treatment. She reports that went today to her dialysis center today to try to get dialysis but she was told that she needs to get blood work since she missed three treatments. Patient is also complaining of headache and low back pain . Historical: - Allergies: 15:54 ambien; ll1 15:54 Codeine; ll1 15:54 Demerol; ll1 15:54 Lisinopril; ll1 15:54 Nitrofurantoin Macrocrystal; ll1 15:54 PENICILLINS; ll1 15:54 Prolixin; ll1 15:54 zolpidem tartrate; ll1 15:54 GUAIFENESIN; ll1 - PMHx: 15:54 chronic kidney disease; liver failure; HD-TTHSat; ENCEPHALOPATHY; cyclic vomiting ll1 syndrome; Dialysis; m-w-f; Diabetes - NIDDM; Gastroparesis; PERIPHERAL NEUROPATHY; - PSHx: 15:54 Prosthetic eye; Tubal ligation; ll1 - Immunization history:: Flu vaccine is up to date. - Social history:: Smoking status: Patient reports the use of cigarette tobacco products, smokes one-half pack cigarettes per day. ROS: 18:38 Constitutional: Negative for fever, chills, and weight loss, Eyes: Negative for injury, pm1 pain, redness, and discharge, ENT: Negative for injury, pain, and discharge, Neck: Negative for injury, pain, and swelling, Cardiovascular: Negative for chest pain, palpitations, and edema, Respiratory: Negative for shortness of breath, cough, wheezing, and pleuritic chest pain, Abdomen/GI: Negative for abdominal pain, nausea, vomiting, diarrhea, and constipation. 18:38 MS/Extremity: Negative for injury and deformity, Skin: Negative for injury, rash, and discoloration. 18:38 Back: Positive for of the low back area, pain. 18:38 Neuro: Positive for headache, Negative for numbness, tingling, weakness. Exam: 18:38 Constitutional: This is a well developed, well nourished patient who is awake, alert, pm1 and in no acute distress. Head/Face: Normocephalic, atraumatic. 18:38 Skin: Warm, dry with normal turgor. Normal color with no rashes, no lesions, and no evidence of cellulitis. MS/ Extremity: Pulses equal, no cyanosis. Neurovascular intact. Full, normal range of motion. 18:38 Cardiovascular: Exam negative for acute changes, Rate: normal, Rhythm: regular, Pulses: no pulse deficits are appreciated, Edema: is not appreciated. 18:38 Respiratory: Exam negative for acute changes, respiratory distress, shortness of breath. 18:38 Abdomen/GI: Inspection: abdomen appears normal, Palpation: abdomen is soft and non-tender, in all quadrants. 18:38 Back: Exam negative for acute changes, pain, is absent. 18:38 Neuro: Exam negative for acute changes, Orientation: is normal, Mentation: is normal, Motor: is normal, moves all fours. Vital Signs: 15:54 BP 191 / 120; Pulse 89; Resp 18; Temp 97.6; Pulse Ox 100% ; Weight 72.4 kg; Height 5 ll1 ft. 1 in. (154.94 cm); Pain 8/10; 18:33 BP 224 / 104; Pulse 89; Resp 18; Pulse Ox 100% on R/A; vg1 19:30 BP 165 / 119; Pulse 90; Resp 18; Pulse Ox 100% on R/A; vg1 20:30 BP 224 / 113; Pulse 80; Resp 14; Pulse Ox 100% on R/A; vg1 21:45 BP 198 / 110; Pulse 88; Resp 20; Pulse Ox 100% on R/A; lp1 15:54 Body Mass Index 30.16 (72.40 kg, 154.94 cm) ll1 MDM: 20:07 Data reviewed: vital signs. pm1 20:07 Patient medically screened. pm1 20:52 Counseling: I had a detailed discussion with the patient and/or guardian regarding: the pm1 historical points, exam findings, and any diagnostic results supporting the discharge/admit diagnosis, lab results, the need for outpatient follow up, to return to the emergency department if symptoms worsen or persist or if there are any questions or concerns that arise at home. 08/04 18:13 Order name: CBC with Diff pm1 08/04 18:13 Order name: BMP pm1 08/04 19:48 Order name: CBC with Automated Diff; Complete Time: 20:02 EDMS 08/04 20:10 Order name: Basic Metabolic Panel; Complete Time: 20:50 EDMS 08/04 18:13 Order name: IV Saline Lock; Complete Time: 19:29 pm1 08/04 18:13 Order name: EKG; Complete Time: 18:14 pm1 08/04 18:13 Order name: EKG - Nurse/Tech; Complete Time: 18:31 pm1 EC:37 Rate is 81 beats/min. Rhythm is regular, Normal Sinus Rhythm with No ectopy. QRS Brush pm1 is Normal. No Q waves. T waves are Normal. No ST changes noted. Clinical impression: Normal ECG. Administered Medications: 19:52 Drug: morphine 4 mg Route: IVP; Site: left upper arm; vg1 20:52 Follow up: Response: Pain is decreased vg1 19:53 Not Given (BP has lowered 165/119. Provider notified): hydrALAZINE 10 mg IV at vg1 calculated rate once 21:02 Drug: hydrALAZINE 10 mg Route: IV; Rate: calculated rate; Site: left upper arm; vg1 22:08 Follow up: IV Status: Completed infusion vg1 Disposition: 08/04/20 20:54 Discharged to Home. Impression: Headache, Low back pain. - Condition is Stable. - Discharge Instructions: Back Pain, Adult, General Headache Without Cause. - Medication Reconciliation Form, Thank You Letter, Antibiotic Education, Prescription Opioid Use form. - Follow up: Emergency Department; When: As needed; Reason: Worsening of condition. Follow up: Private Physician; When: 2 - 3 days; Reason: Recheck today's complaints, Continuance of care, Re-evaluation by your physician. - Problem is new. - Symptoms have improved. Addendum: 08/09/2020 19:24 Co-signature as Attending Physician, Obed Contreras MD I agree with the assessment and t w4 plan of care. Signatures: Dispatcher [employer] EDAnand Cordon, VIDEO EFFECTS EDITOR VIDEO EFFECTS EDITOR pm1 Obed Contreras MD MD tw4 Anil Sterling mw2 Jennifer Antonio, RN RN vg1 Georgette Longoria RN RN ll1 Corrections: (The following items were deleted from the chart) 08/04 22:01 20:54 08/04/2020 20:54 Discharged to Home. Impression: Headache; Low back pain. mw2 Condition is Stable. Forms are Medication Reconciliation Form, Thank You Letter, Antibiotic Education, Prescription Opioid Use. Follow up: Emergency Department; When: As needed; Reason: Worsening of condition. Follow up: Private Physician; When: 2 - 3 days; Reason: Recheck today's complaints, Continuance of care, Re-evaluation by your physician. Problem is new. Symptoms have improved. pm1
[2020-08-04 22:07] VITALS: TEMP 97.6; O2SAT 100
[2020-08-04 22:11] VITALS: BP 224/113
--- NOTE | 2020-08-05 13:13 | EKG ---
Test Date: 2020-08-04 Test Time: 18:26:05 Renal Nurse: MARGARITO MEASUREMENT RESULTS: Intervals: Rate: 81 KS: 142 QRSD: 80 QT: 390 QTc: 453 [place]: P: 63 KS: 142 QRS: 50 T: 55 INTERPRETIVE STATEMENTS: Normal sinus rhythm Normal ECG Compared to ECG 07/20/2020 20:52:37 Prolonged QT interval no longer present Electronically Signed On 08-05-20 13:12:30 CLINICAL THERAPIST by Juan Hogan
== END 2020-08-04 22:01 | disposition home or self-care (01) ==
LOC: ER 15:32
DX: M54.5 Low back pain (principal); E11.22 Type 2 diabetes mellitus with diabetic chronic kidney disease; N18.6 End stage renal disease; K72.90 Hepatic failure, unspecified without coma; F17.210 Nicotine dependence, cigarettes, uncomplicated; Z88.0 Allergy status to penicillin; Z88.5 Allergy status to narcotic agent; Z88.8 Allergy status to other drugs, medicaments and biological substances; Z99.2 Dependence on renal dialysis
CPT/HCPCS: 96365; 93005; 85025; 80048; 36415; 96375; 99284; J0360

== ENCOUNTER 2020-09-30 06:11 | Observation (INO) | payer OTHER ==
--- OUTSIDE RECORDS SUMMARY | 2020-09-30 06:24 | XMS REPORT | Continuity of Care Document ---
:1980 Author Organization [facility] t Address [address] [place] [address] Care Team Providers Name Role Phone Sharpless Primary Care Physician Carlos BURNS Attending Clinician Manuel Sanchez DO Attending Clinician Naun Cleaning DPM Attending Clinician Chivo Attending Clinician Unavailable Chivo [...] 00 Active 07/12/2018 [facility] Liver Liver Disease Active [facility] failure, failure, 7[facility] - acute acute 00:00: Medical 00 Center SANJUANA (acute SANJUANA (acute Disease Active [facility] kidney kidney -16 [facility] - injury) injury) 00:00: Medical 00 [place] CKD CKD Disease Active [facility] (chronic (chronic 16 [facility] - kidney kidney 00:00: Medical disease) disease) 00 Center Acute Acute Disease Active [facility] encephalop encephalop -16 Pati kes - athy athy 00:00: Medical 00 [place] Ulcer of Ulcer of Disease [facility] toe [facility] toe of 16 [facility] - left foot left foot 00:00: Medi tawnya 00 [place] Peripheral Peripheral Disease Active [facility] neuropathy neuropathy 16 Pati kes - 00:00: Medical 00 [place] Hyperglyce Hyperglyce Disease Active [facility] mrayam due to maryam due to 16 Pati kes - type 2 type 2 00:00: Medical diabetes diabetes 00 Center mellitus mellitus Gastropare Gastropare Disease Active [facility] sis due to sis due to 01-03 Pati kes - DM DM 00:00: Medical 00 [place] Cyclic Cyclic Disease Active [facility] vomiting vomiting 01-03 [facility] - syndrome syndrome 00:00: Medica l 00 Center Anxiety Anxiety Disease Active [facility] - 00[facility]: Medical 00 [place] Bipolar Bipolar Disease Active [facility] disorder disorder 16 [facility] - 00:00: Medical 00 [place] Hypertensi Hypertensi Disease Active [facility] ve ve 16 [facility] - emergency emergency 00:00: [facility] tawnya 00 Center CONGESTION Diagnosis Active 2016-07-24 Memoria AMD 2- 01:49:00 l DIARRHEA 00:00: Vin CONGESTION 00 AMD DIARRHEA Active 07/23/2016 [facility] ACUTE RESP Diagnosis Active 2016-09-09 Memoria FAILURE - 09:11:00 l ACUTE 00:00: Vin RESP 00 FAILURE Active 07/23/2016 [facility] SOB/SWELLI Diagnosis Active 2015-062016-06-10 Memoria NG - 15:48:00 l 00:00: Vin SOB/SWELLI [address] [facility] CHF/RENAL Diagnosis Active 2015-062016-06-24 Memoria DISEASE 2- 15:35:00 l 00:00: [place] CHF/RENAL 00 DISEASE Active 06/10/2016 [facility] ABDOMINAL Diagnosis Active 2014-06-26 Memoria PAIN, 1- 05:44:00 l SEIZURES 00:00: Vin ABDOMINAL 00 PAIN, SEIZURES Active 06/26/2013 [facility] ABD PAIN Diagnosis Active 2012-062013-04-19 M emoria 0 21:51:00 l ABD PAIN 19:00: Jake n 00 Active 04/14/2013 [facility] GASTROPERI Diagnosis Active 2012-09-13 Memoria SIS 08-02 15:17:00 l 00:00: [place] GASTROPERI 00 SIS Active 08/02/2012 [facility] ABDOMINAL Diagnosis Active 2012-03-14 Memoria PAIN 03-14 16:56:00 l 14:00: [place] ABDOMINAL 00 PAIN Active 03/14/2012 [facility] NAUSEA, Diagnosis Active 2012-03-14 Me moria VOMITING 03-14 13:25:00 l NAUSEA, 08:00: Vin VOMITING 00 Active 03/14/2012 [facility] VOMITTING Diagnosis Active 2011-11-28 Memoria 11-27 16:28:00 l 00:00: Vin VOMITTING 00 Active 11/28/2011 [facility] N/V Diagnosis Active 2011-12-08 Mem oria INABILITY 11-27 11:14:00 l TO N/V 00:00: [place] TOLERATE INABILITY 00 PO TO TOLERATE PO Active 2 [facility] VOMITTING, Diagnosis Active 2011-09-18 Memoria HIGH BLOOD 09-17 09:45:00 l SUGAR 00:00: [place] VOMITTING, 00 HIGH BLOOD SUGAR Active 09/18/2011 [facility] MRSA Problem Active 2012-03-16 Memor ia 08-31 09:11:30 l MRSA 00:00: [place] 00 Active 09/01/2011 Problem 03/16/2012 - Elbow [id number] emily added by Discern Expert. [facility] [place] Methicilli Problem Active 2016-08-02 M emoria n 3-13 02:46:22 l resistant 00:00: Vin Staphyloco Methicilli 00 ccus n aureus resistant (organism) Staphyloco ccus aureus (organism) Active 09/01/2011 Problem 08/02/2016 09/01/11 - Elbow woundProbl em added by Discern Expert. [facility] ELBOW Diagnosis Active 2011-09-10 Mem oria ABSCESS/HY 3- 16:26:00 l PERGLYCEMI ELBOW 00:00: Nidia nn A ABSCESS/HY 00 PERGLYCEMI A Active 08/31/2011 [facility] VOMITING, Diagnosis Active 2011-09-01 Memoria BLOOD 08-30 03:19:00 l SUGAR 00:00: [place] READINGS VOMITING, 00 HIGH BLOOD SUGAR READINGS HIGH Active 08/31/2011 [facility] Hypokalemi Problem Active 2012-03-16 M emoria a 08-22 09:11:30 l 00:00: Vin Hypokalemi 00 a Active 08/23/2011 Problem 03/16/2012 [facility] VOMITING Diagnosis Active 2011-08-19 M emoria 16:21:00 l VOMITING 00:00: Jake n 00 Active 08/19/2011 [facility] DKA Diagnosis Active 2011-08-24 Mem oria 11:27:00 l DKA 00:00: Vin 00 Active 08/19/2011 [facility] Final: Problem 2016-08-02 Memor ia Acute 02:46:22 l respirator Final: Herm naeem y failure, Acute unspecifie respirator d whether y failure, with unspecifie hypoxia or d whether hypercapni with a hypoxia or hypercapni a 08/02/2016 [facility] Hypoglycem Problem Inactiv 2013-04-22 Memoria ia e 04:46:33 l (disorder) Jake n Hypoglycem ia (disorder) Inactive Problem 04/22/2013 [facility] Hypoglycem Problem Inactiv 2012-03-16 Memoria ia e 09:11:30 l [place] Hypoglycem ia Inactive Problem 03/16/2012 [facility] Diabetes Problem Resolve 2016-08-02 Me moria mellitus d 02:46:22 l (disorder) Diabetes He rmann mellitus (disorder) Resolved Problem 08/02/2016 [facility] Gastropare Problem Resolve 2016-08-02 Memoria sis d 02:46:22 l (disorder) Jake n Gastropare sis (disorder) Resolved Problem 08/02/2016 [facility] Hypertensi Problem Resolve 2016-08-02 Memoria ve d 02:46:22 l disorder, [place] systemic Hypertensi arterial ve (disorder) disorder, systemic arterial (disorder) Resolved Problem 08/02/2016 [facility] Psychiatri Problem Resolve 2016-08-02 Memoria c d 02:46:22 l behavioral Jake n disability Psychiatri (finding) c behavioral disability (finding) Resolved Problem 08/02/2016 [facility] Seizure Problem Resolve 2016-08-02 Mem oria (finding) d 02:46:22 l Seizure Vin (finding) Resolved Problem 08/02/2016 [facility] Hypomagnes Problem Active 2013-04-22 M emoria emia 04:46:33 l Vin Hypomagnes emia Active Problem 04/22/2013 [facility] Hypertensi Problem Active 2012-03-16 M emoria on 09:11:30 l [place] Hypertensi on Active Problem 2 [facility] Nausea and Problem Active 2012-03-16 M emoria vomiting 09:11:30 l Nausea Vin and vomiting Active Problem 03/16/2012 [facility] DMI Diagnosis Active 2011-08-24 Mem oria KETOACD 11:27:00 l UNCONTROLD DMI Jake n KETOACD UNCONTROLD Active [facility] OTHER Diagnosis Active 2011-09-10 Mem oria GENERAL 16:26:00 l SYMPTOMS OTHER [place] GENERAL SYMPTOMS Active [facility] HEART Diagnosis Active 2016-06-24 Mem oria FAILURE, 15:35:00 l UNSPECIFIE HEART Nidia nn D FAILURE, UNSPECIFIE D Active [facility] ACUTE Diagnosis Active 2016-09-09 Mem oria RESPIRATOR 09:11:00 l Y FAILURE, ACUTE Nidia nn UNSP W RESPIRATOR HYPOXI Y FAILURE, UNSP W HYPOXI Active [facility] Nausea and Problem Resolve 2012-0 2016-08-02 2016-08-02 Memoria vomiting d 6-10 02:46:22 02:46:22 l (disorder) Nausea 00:00: Herm naeem and 00 vomiting (disorder) Resolved 11/29/2011 Problem 08/02/2016 [facility] Hypokalemi Problem Resolve 2016-08-02 2016-08-02 Memoria a d 3-04 02:46:22 02:46:22 l (disorder) 00:00: Jake n Hypokalemi 00 a (disorder) Resolved 08/23/2011 Problem 08/02/2016 [facility] Disorder Problem Resolve 2016-08-02 2016-08-02 Memoria of d 3-04 02:46:22 02:46:22 l magnesium Disorder 00:00: Her braden metabolism of 00 (disorder) magnesium metabolism (disorder) Resolved 08/23/2011 Problem 08/02/2016 [facility] Hyperglyce Problem Resolve 2016-08-02 2016-08-02 Memoria maryam d 3- 02:46:22 02:46:22 l (disorder) 00:00: Jake n Hyperglyce 00 maryam (disorder) Resolved 08/20/2011 Problem 08/02/2016 [facility] Ketoacidos Problem Resolve 2016-08-02 2016-08-02 Memoria is in d 2- 02:46:22 02:46:22 l diabetes 00:00: Vin mellitus Ketoacidos 00 (disorder) is in diabetes mellitus (disorder) Resolved 08/19/2011 Problem 08/02/2016 [facility] DKA Problem Resolve 2013-04-22 2013-04-22 Memoria (diabetic d 2- 04:46:33 04:46:33 l ketoacidos DKA 00:00: Jake gonzalez es) (diabetic 00 ketoacidos es) Resolved 08/19/2011 Problem 04/22/2013 [facility] History of Past Illness Condition Condition Condition Status Onset Resolution Last Treating Co mments Source Name Details Category Date Date Treatment Clinician Date Discharge Problem 2014-06-28 2014-06-28 Memoria Diagnosis: 1-06 16:34:37 16:34:37 l Gastropare 06:00: Jake gonzalez sis Discharge 00 Diagnosis: Gastropare sis 06/26/2014 06/28/2014 [facility] Hyperglyce Problem Inactiv 2012-03-16 2012-03-16 Memoria maryam e 3- 09:11:30 09:11:30 l 00:00: [place] Hyperglyce 00 maryam Inactive 08/20/2011 Problem 03/16/2012 [facility] Allergies, Adverse Reactions, Alerts Allergy [...] 00 Center codeine codeine Active Memoria l Vin penicill penicill Active Memori a ins ins l Vin Prolex Prolex Active Memoria DM DM l [place] Ambien Ambien Active Memoria l Vin lisinopr lisinopr Active Memori a il il l Vin Social History Social Habit Start Date Stop Date Quantity Comments Source Sex Assigned At [facility] Cigarettes smoked 2017-12-17 2017-12-17 [facility] - current (pack per 00:00:00 00:00:00 Medical Center day) - Reported Cigarette 2017-12-17 2017-12-17 [facility] - pack-years 00:00:00 00:00:00 [facility] Alcohol intake 2017-12-17 2017-12-17 [facility] non-drinker of Medical Ce nter alcohol (finding) Tobacco Comment 2017-01-03 2017-01-03 [facility]:00:00 she stopped [address] month ago. History of tobacco 2016-12-04 [facility] Social History 2016[facility]06[facility]11 [facility]12 Smoking Status Start Date Stop Date Source Former smoker 2017-12-17 00:00:00 2017-12-17 00:00:[address] [facility] Medications Ordered Filled Start Stop Current Ordering Indication Dosage Frequency Signature Comments Components Source Medication Medication Date Date Medication? Clinician (SIG) Name Name divalproex 2017- Yes depression 500mg QD Take 500 [...] Center hours as needed for Pain. pantoprazol 2017-0 Yes 40mg QD Take [address] e 7-20 by mouth [facility] - (PROTONIX) 15:20: daily. Medic al 40 MG 59 Center tablet amLODIPine 2017- Yes 10mg QD Take [address] (NORVASC) 5 7-20 by mouth Luke s - MG tablet 15:20: daily. Medica l 59 Center hydrALAZINE 2017-0 Yes 100mg [id number] Take [address] (APRESOLINE 7-20 [id number] mg by L ukes - ) 100 MG 15:20: 3D mouth 3 Medica l tablet 59 (three) Center times daily. magnesium 2017-0 Yes 400mg QD Take [address] oxide 7-20 mg by [facility] - (MAG-OX) 15:20: mouth Medical 400 mg 59 daily. Center tablet metoclopram 2017-0 Yes 10mg Q.[id number] Take [address] gadiel HCl 7-20 [id number] by mouth 3 [facility] - (REGLAN) 10 15:20: 3D (three) Med ical MG tablet 59 times Center daily. meclizine 2017-0 Yes 12.5mg Take 12.[address] [...] tab, PO, l Tablet 15:07: Daily, # [place] 00 30 tab, 0 Refill(s), Pharmacy: [id number] Bumex No 0.5 mg, Memoria 2- Route: PO, l 15:00: Drug form: Vin 00 TAB, Daily, Dosing Weight 92.273, kg, Start date: 07/30/16 9:00:00 [employer], Duration: 30 day, Stop date: 08/28/16 9:00:00 [employer] Lasix No Notes: Memoria 2-08 (Same as: l 20:05: Lasix) Vin 00 May cause GI upset. Give with food or milk. Hydralazine No Notes: Mendoza janice 2-08 (Same as: l 06:05: Apresoline Vin 00 ) Push over 5 minutes sodium No 1,000 mL, Memori a chloride 2-05 Rate: 125 l 0.9% 1000 18:26: ml/hr, Jake n ml INJ 00 Infuse 1,000 mL over: 8 hr, Route: IV, Dosing Weight 92.273 kg, Total Volume: 1,000, Start date: 07/26/16 12:26:00 [employer], Duration: 30 day, Stop date: 08/25/16 12:25:00 [employer] Sodium 2017- No 500 mL, Memoria Chloride 2-05 500 ml/hr, l 0.154 13:30: Infuse [place] MEQ/ML 00 Over: 1 Injectable hr, Route: Solution IV, 500, Drug form: INJ, ONCE, Priority: STAT, Dosing Weight 92.273 kg, Start date: 07/26/16 7:30:00 [employer], Duration: 1 doses or times, Stop date: 07/26/16 7:30:00 [employer] Insulin No 60 Memoria regular 2-04 units) [...] Roll in l Human 05:42: palms of [place] 00 hands gently; Do not shake vigorously . (Same as: NovoLOG) "single patient use only" WASTE: F/P - Black; E - Municipal Trash Bin Stable for 28 days at room temperatur e. Expires in days from ____Date Insulin, No Notes: Memoria Aspart, 2-04 Roll in l Human 03:28: palms of [place] 00 hands gently; Do not shake vigorously . (Same as: NovoLOG) "single patient use only" WASTE: F/P - Black; E - Municipal Trash Bin Stable for 28 days at room temperatur e. Expires in days from ____Date atorvastati No Notes: Mendoza janice n 2-04 (Same as: l 03:00: Lipitor) [place] 00 divalproex No Notes: Memor ia sodium 2-04 (Same as: l 03:00: Depakote [place] 00 ER) Once daily dosing; indicated for [...] Weight 92.273, kg, Start date: 07/24/16 9:00:00 [employer], Duration: 30 day, Stop date: 08/22/16 9:00:00 [employer] 24 HR No Notes: Memoria Divalproex 2-03 [...] form: ERTAB, Daily, Start date: 07/24/16 9:00:00 [employer], Duration: 30 day, Stop date: 08/22/16 9:00:00 [employer] Insulin No Notes: Memoria Glargine 2-03 Same [...] Roll in l Human 13:30: palms of [place] 00 hands gently; Do not shake vigorously . (Same as: NovoLOG) "single patient use only" WASTE: F/P - Black; E - Municipal Trash Bin Stable for 28 days at room temperatur e. Expires in days from ____Date Dilaudid No Notes: Memoria 2-03 Same as l 11:28: Dilaudid [place] 00 Insulin, No Notes: Memoria Aspart, 2-03 Roll in l Human 08:40: palms of [place] 00 hands gently; Do not shake vigorously [...] Blood Glucose Results, Start date: 07/24/16 2:40:00 [employer], Duration: 30 day, Stop date: 08/23/16 2:39:00 [employer] Dextrose No 25 gm, 50 Mendoza janice 50% Syringe 2-03 mL, Route: l 08:40: IVP, Drug Form: INJ, Dosing Weight 92.273, kg, PRN, PRN Blood Glucose Results, Start date: 07/24/16 2:40:00 [employer], Duration: 30 day, Stop date: 08/23/16 2:39:00 [employer] Docusate No Notes: Memoria 2-03 (Same as: l 07:20: Colace) (Do Not Crush) Ondansetron No Notes: Mendoza janice 2-03 (Same as: l 07:20: Zofran) MEDICATION WASTE Product Size: 4 mg Product Wasted: ___ mg Lasix No Notes: Memoria 2-03 (Same as: l 06:01: Lasix) MEDICATION WASTE Product Size: 40 mg Product Wasted: ___ mg Aspirin No Notes: Memoria 2-03 Take with l 05:48: food. Prednisone No Notes: Memor ia 2-03 Take with l 05:02: food. Albuterol No Notes: Memori a 0.833 MG/ML 07-24 (Same as: l 04:09: Duoneb) [place] Ipratropium 00 [place] 0.167 MG/ML Inhalant Solution [DuoNeb] Furosemide 2015-06 [...] INHALATION l 0.09 16:34: , PRN, PRN [place] MG/ACTUAT 00 as needed Metered for Dose wheezing, Inhaler use as needed for shortness of breath or wheezing, # 8 gm, 0 Refill(s) Aspirin 81 2015-06 Yes 81 mg = 1 Me moria MG Chewable 2-26 tab, PO, l Tablet 16:34: Daily, # [place] 00 30 tab, 0 Refill(s) Hydroxyzine 2015-06 [...] 13:36: Mag-Ox Vin 00 400) Magnesium oxide 474hw=225e g elemental magnesium Dose=____m g magnesium oxide (___mg elemental magnesium) Magnesium 2015-06 No Notes: Memori a Oxide 2-24 (Same as: l 09:47: Mag-Ox Vin 00 400) Magnesium oxide 098ma=546z g elemental magnesium Dose=____m g magnesium oxide [...] Memoria 2-24 (Same as: l 00:00: Norvasc) [place] 00 Insulin 2015-06 No Notes: Memoria Glargine [...] tab, PO, l Tablet 15:27: Daily, 0 [place] [Zoloft] 00 Refill(s) pantoprazol 2015-06 Yes 40 [...] 2-22 Route: PO, l 15:00: Drug form: ECTAB, Daily, Dosing Weight 86.364, kg, Start date: 06/11/16 9:00:00 [employer], Duration: 30 day, Stop date: 07/10/16 9:00:00 [employer] Insulin 2015-06 No Notes: Memoria Glargine 2-22 Same as: l 100 UNT/ML 15:00: Lantus) Do H ermann Injectable 00 not hold Solution insulin [Lantus] without contacting prescriber WASTE: F/P - Black; E - Municipal Trash Bin Zoloft 2015-06 No Notes: Memoria 2-22 (Same as: l 15:00: Zoloft) Insulin, 2015-06 No Notes: Memoria Aspart, 2- Roll in l Human 12:55: palms of hands gently; Do not shake vigorously . (Same as: NovoLOG) "single patient use only" WASTE: F/P - Black; E - Municipal Trash Bin Stable for 28 days at room temperatur e. Expires in days from ____Date heparin 2015-06 No Notes: Memoria sodium, 2-22 porcine l porcine 06:00: heparin [place] 2500 UNT/ML 00 Injectable Solution Albuterol 2015-06 No Notes: Memori a 0.833 MG/ML - (Same as: l / 03:00: Duoneb) Ipratropium 00 [place] 0.167 MG/ML Inhalant Solution [DuoNeb] gabapentin 2015-06 No 300 mg, Mendoza janice 300 MG Oral 2-22 Route: PO, l Capsule 03:00: Drug form: Herm CAP, Q12H, Dosing Weight 86.364, kg, (CrCl 30 - 59 ml/min), Start date: 06/10/16 21:00:00 [employer], Duration: 30 day, Stop date: 07/10/16 9:00:00 [employer] divalproex 2015-06 No Notes: Memor ia sodium 2-22 (Same as: l 03:00: Depakote ER) Once daily dosing; indicated for migraines. Divalproe x sodium extended-r elease tab. Do not chew or crush. "Do Not Crush" Losartan 2015-06 No Notes: Memoria 2-22 (Same as: l 03:00: Cozaar) Insulin, 2015-06 No Notes: Memoria Aspart, 2-22 Roll in l Human 00:50: palms of hands gently; Do not shake vigorously . (Same as: NovoLOG) "single patient use only" WASTE: F/P - Black; E - [employer] Trash Bin Stable for 28 days at room temperatur e. Expires in days from ____Date Dextrose 2015-06 No 12.5 gm, Memor ia 50% Syringe 2-22 25 mL, l 00:50: Route: IVP, Drug Form: INJ, Dosing Weight 86.364, kg, PRN, PRN Blood Glucose Results, Start date: 06/10/16 18:50:00 [employer], Duration: 30 day, Stop date: 07/10/16 18:49:00 [employer] Glucagon 2015-06 No 1 mg, Memoria 2-22 Route: IM, l 00:50: Drug form: PDR/INJ, PRN, Dosing Weight 86.364, kg, PRN Blood Glucose Results, Start date: 06/10/16 18:50:00 [employer], Duration: 30 day, Stop date: 07/10/16 18:49:00 [employer] Hydralazine 2015-06 No Notes: Mendoza janice 2-22 [...] Weight 86.364, kg, Start date: 06/10/16 18:06:00 [employer], Stop date: 06/10/16 18:06:00 [employer] hydrOXYzine 2015-06 No Notes: Mendoza janice pamoate 08-11 (Same as: l 23:00: Vistaril) Furosemide 2015-06 No 60 mg, Memor ia 08-11 Route: l 22:32: IVP, Drug form: INJ, ONCE, Dosing Weight 86.364, kg, Start date: 06/10/16 16:32:00 [employer], Stop date: 06/10/16 16:32:00 [employer] Lasix 2015-06 No Notes: Memoria - (Same as: l 17:22: Lasix) MEDICATION WASTE Product Size: 40 mg Product Wasted: _0__ mg Albuterol 2015-06 No Notes: Memori a 0.833 MG/ML 08-11 (Same as: l / 17:22: Duoneb) Ipratropium 00 [place] 0.167 MG/ML Inhalant Solution [DuoNeb] Promethazin Yes [...] = 1 M emoria gadiel 10 MG 06-26 tab, PO, l Oral Tablet 14:24: QID, [...] 06/26/14 4:56:00 Lorazepam No Notes: Memori a 06-26 (Same as: l 10:56: Ativan) Metoclopram No [...] Marx Rate: 500 l 0.9% 23:45: ml/hr, [place] (Bolus) IV 00 Infuse 500 mL over: [...] times, Stop date: 03/14/12 17:48:00 Reglan 10 Yes Blake 10 mg, 1 M emoria mg oral 6-11 Deangelo tab, PO, l tablet 11:11: Brisa QID-Before H ermann 13 Meals, 120 tab, 1, 1, Substituti on Allowed insulin No Blake 10 unit, Mem oria isophane-[employer] 6-11 Deangelo 0.1 mL, l H 02:00: Route: [place] SUB-Q, Drug form: INJ, Bedtime, Start date: 11/29/11 21:00:00, Duration: 30 day, Stop date: 12/28/11 21:00:00 Insulin No Lbake 8 unit, Mendoza janice regular 6-11 Deangelo 0.08 mL, l 02:00: Route: Vin 00 SUB-Q, Drug form: SOLN, Bedtime, Start date: 11/29/11 21:00:00, Duration: 30 day, Stop date: 12/28/11 21:00:00 trazodone No Blake 200 mg, 2 Memoria 100 mg oral 6-11 Deangelo tab, l tablet 02:00: Brisa Route: PO, H ermann 00 Drug form: TAB, Bedtime, Start date: 11/29/11 21:00:00, Duration: 30 day, Stop date: 12/28/11 21:00:00 Geodon 2011-0 No Blake 120 mg, 3 Mem oria 6-11 Deangelo cap, l 02:00: Brisa Route: PO, Her braden 00 Drug form: CAP, Bedtime, Start date: 11/29/11 21:00:00, Duration: 30 day, Stop date: 12/28/11 21:00:00 amLODipine 2012-0 No Blake 5 mg, 1 M emoria [...] 30 day, Stop date: 12/29/11 14:15:00 insulin 2011-0 No Blake 14 unit, Mem oria isophane-[employer] 6-10 Deangelo 0.14 mL, l H 14:00: Route: [place] 00 SUB-Q, Drug form: INJ, Daily, Start date: 11/29/11 9:00:00, Duration: 30 day, Stop date: 12/28/11 9:00:00 Insulin 2011-0 No Blake 10 unit, Mem oria regular 6-10 Deangelo 0.1 mL, l 14:00: Route: Vin 00 SUB-Q, Drug form: SOLN, Daily, Start [...] 6-10 Deangelo 0.1 mL, l 06:30: Route: [place] 00 SUB-Q, Drug form: SOLN, TID-Before Meals, [...] l IV 1,000 mL 06:29: Brisa ml/hr, [place] 00 Infuse over: 5 hr, Route: IV, Dosing Weight 57.273 kg, Total Volume: 1,000, Start date: 11/29/11 1:29:00, Duration: 30 day, Stop date: 12/29/11 1:28:00 Saline 2011-0 No Blake 5 ml, Memoria Flush 0.9% 6-10 Deangelo Route: l 06:28: Brisa IVP, Drug Herm naeem 00 Form: INJ, PRN, PRN Line Flush, Start date: 11/29/11 1:28:00, Duration: 30 day, Stop date: 12/29/11 1:27:00 ondansetron 2011- No Blake 4 mg, 2 Memoria 6-10 [...] mL, Route: l 04:01: Brown IVP, Drug [place] 00 form: INJ, ONCE, Priority: STAT, Start date: 11/28/11 23:01:00, Stop date: 11/28/11 23:01:00 Zofran No Nikki 4 mg, 2 Mendoza janice 6-10 Sarah mL, Route: l 02:31: Brown IVP, Drug Vin 00 form: INJ, ONCE, Priority: STAT, Start date: 11/28/11 21:31:00, Stop date: 11/28/11 21:31:00 NS (Bolus) No Arif Domenico 1,000 mL, Memoria IV 1,000 mL 11-27 Rate: l 22:48: 1,000 [place] 00 ml/hr, Infuse over: 1 hr, Route: IV, Dosing Weight 57.273 kg, Total Volume: 1,000, Start date: 11/28/11 17:48:00, Duration: 30 day, Stop date: 12/28/11 17:47:00 NS (Bolus) No Arif Domenico 1,000 mL, Memoria IV 1,000 mL 11-27 Rate: l 20:36: 1,000 [place] 00 ml/hr, Infuse over: 1 hr, Route: IV, Dosing Weight 57.273 kg, Total Volume: 1,000, Start date: 11/28/11 15:36:00, Duration: 30 day, Stop date: 12/28/11 15:35:00 Ativan No Arif Domenico 2 mg, 1 Mem oria 6-09 mL, Route: l 20:35: IVP, Drug [place] 00 form: INJ, ONCE, Priority: STAT, Start date: 11/28/11 15:35:00, Stop date: 11/28/11 15:35:00 Novolin R Yes Hughes-Jason 8 unit, M emoria 100 3-30 [place] SUB-Q, l units/mL 17:47: Dawson Q12H, 2 He rmann injectable 42 Pu vial, solution Substituti on Allowed, SOLN Novolin N Yes Hughes-Jason 10 unit, Memoria 100 3-30 [place] SUB-Q, l units/mL 17:46: Dawson Bedtime, H ermann subcutaneou 27 Pu 10 ml, s injection Substituti on Allowed, SUSP Novolin N Yes Hughes-Jason 14 unit, Memoria 100 3-30 [place] SUB-Q, l units/mL 17:44: Eunice QAM, 1 Her braden subcutaneou 37 Pu vial, s injection Substituti on Allowed, SUSP magnesium No Hughes-Jason 400 mg, 1 Memoria oxide 3-30 [place] tab, l 14:55: Dawson Route: PO, Her braden 00 Pu Drug form: TAB, ONCE, Priority: STAT, Start date: 09/18/11 9:55:00, Stop date: 09/18/11 9:55:00 Insulin No Hughes-Jason 8 unit, Mem oria regular 3-30 [place] 0.08 mL, l 14:22: Dawson Route: [place] 00 Pu SUB-Q, Drug form: SOLN, ONCE, Priority: STAT, Start date: 09/18/11 9:22:00, Stop date: 09/18/11 9:22:00 Lactated No Hughes-Jason 1,000 mL, Memoria Ringers 3-30 [place] Rate: l (Bolus) IV 14:16: Dawson 1,000 He rmann 1,000 mL 00 Pu ml/hr, Infuse over: 1 hr, Route: IV, Total Volume: 1,000, Bolus Dose, Priority: STAT, Start date: 09/18/11 9:16:00, Duration: 1 doses or times, Stop date: 09/18/11 10:15:00 Sodium No Hughes-Jason 1,000 mL, Me moria Chloride 3-30 [place] Rate: l 0.9% 14:06: Dawson 1,000 [place] (Bolus) IV 00 Pu ml/hr, 1000 mL Infuse over: 1 hr, Route: IV, kg, Total Volume: 1,000, Bolus Dose, Priority: STAT, Start date: 09/18/11 9:06:00, Duration: 1 doses or times, Stop date: 09/18/11 10:05:00 sulfamethox Yes Substituti Memoria azole 3-30 on Allowed l 14:04: Vin 58 Sodium No Hughes-Jason 1,000 mL, Me moria Chloride 3-30 [place] Rate: l 0.9% 13:56: Dawson 1,000 [place] (Bolus) IV 00 Pu ml/hr, 1000 mL Infuse over: 1 hr, Route: IV, kg, Total Volume: 1,000, Bolus Dose, Priority: STAT, Start date: 09/18/11 8:56:00, Duration: 1 doses or times, Stop date: 09/18/11 9:55:00 clindamycin No Eber L 300 mg, 2 Memoria 3-21 Anabelle cap, l 21:00: Route: PO, [place] 00 Drug form: CAP, Q8H, Start date: 09/09/11 16:00:00, Duration: 30 day, Stop date: 10/09/11 8:00:00 Colace 100 2011- Yes Luna 100 mg, 1 Memoria mg oral 3-21 Amelia cap, PO, l capsule 18:47: Zeeshan BID, 60 Her braden 19 cap, Substituti on Allowed, CAP clindamycin Yes Luna 300 mg, 2 Memoria 150 mg oral 3-21 Amelia cap, PO, l capsule 18:46: Winona Q8H, 30 Her braden 55 cap, Substituti on Allowed, CAP [place] Yes Luna 1 tab, PO, Memoria 10/325 oral 3-21 Amelia Q4H, PRN, l tablet 18:46: Winona 30 tab, Herm naeem 36 Pain, Substituti on Allowed, Maintenanc e, TAB [place] No Hollie Donavan 1 tab, Mendoza janice [...] No Gayle 0.2 mg, 2 Memoria 3-19 Ojsefina mL, Route: l 14:19: Gavin IVP, Drug Jake n 00 form: INJ, PRN, PRN Benzodiaze pine Reversal, Initial dose, Start date: 09/07/11 9:19:00, Duration: 1 day, Stop date: 09/08/11 9:18:00 naloxone No Gayle 0.04 mg, Me moria 3-19 Josefina 0.1 mL, l 14:19: [place] Route: Vin 00 IVP, Drug form: INJ, Q2MIN, PRN Narcotic Reversal, Start date: 09/07/11 9:19:00, Duration: 8 doses or times, Stop date: Limited # of times ondansetron No Gayle 4 mg, 2 Memoria 3-19 Josefina mL, Route: l 14:19: Gavin IVP, Drug Jake n 00 form: INJ, ONCE, PRN Nausea & Vomiting, Start date: 09/07/11 9:19:00 hydromorpho No Gayle 0.5 mg, Memoria ne 3-19 Josefina 0.25 mL, l 14:19: Gavin Route: [...] 09/07/11 8:31:00, Stop date: 09/07/11 8:31:00 normal No Yury W 1,000 mL, M emoria saline 0.9% 3-19 Adeline Rate: 100 l IV 1,000 mL 05:00: ml/hr, Herm naeem 00 Infuse over: 10 hr, Route: IV, Dosing Weight 68.18 kg, Total Volume: 1,000, Start date: 09/07/11 0:00:00, Duration: 30 day, Stop date: 10/06/11 23:59:00 normal No Yury W 1,000 mL, M emoria saline 0.9% 3-18 Adeline Rate: 100 l IV 1000 mL 13:25: ml/hr, Nidia nn 00 Infuse over: 10 hr, Route: IV, kg, Total Volume: 1,000, Start date: 09/06/11 8:25:00, Duration: 30 day, Stop date: 10/06/11 8:24:00 senna 8.6 No [place] 8.6 mg, 1 M emoria mg oral 3-17 Omidvar tab, l tablet 15:00: Route: PO, Nidia nn 00 Drug Form: TAB, BID, PRN as needed for constipati on, Start date: 09/05/11 10:00:00, Duration: 30 day, Stop date: 10/05/11 9:00:00 Colace 100 No [place] 100 mg, 1 [...] 30 day, Stop date: 10/04/11 22:59:00 Zofran 2011-0 No Hector 4 mg, 2 Memori a 3-16 Hissam mL, Route: l 23:11: Peg IV, Drug Jake n 00 form: INJ, Q4H, PRN as needed for nausea/vom iting, Priority: NOW, Start date: 09/04/11 18:11:00, Duration: 30 day, Stop date: 10/04/11 18:10:00 [place] 2011-0 No Mahammad 1 tab, Memori a [...] No Rosalino 4 mg, 2 Memoria 3-16 Kvaon mL, Route: l 14:50: IVP, Drug Vin 00 form: INJ, ONCE, PRN Nausea & Vomiting, Start date: 09/04/11 9:50:00, Duration: 1 doses or times, Stop date: Limited # of times ropivacaine 2011-0 No Rosalino Dosing: Memoria 0.2% in NS 3-16 Kavon 10cc/hr, l - site 1 14:50: Route: Vin 400 mL 00 NERVE BLOCK, Start date: 09/04/11 9:50:00 400 mL, Duration: 30 day, Stop date: 10/04/11 9:49:00 naloxone 2011-0 No Rsoalino 0.04 mg, Me moria 3-16 Kavon 0.1 mL, l 14:50: Route: Vin 00 IVP, Drug form: INJ, Q2MIN, PRN Narcotic Reversal, Start date: 09/04/11 9:50:00, Duration: 30 day, Stop date: 10/04/11 9:49:00 [place] 2011-0 No [place]ism[place] 1 tab, Memoria 10/325 oral 3-16 Omidvar Route: PO, l tablet 14:49: Drug Form: Nidia nn 00 TAB, Q4H, PRN Pain, Start date: 09/04/11 9:49:00, Stop date: 10/04/11 9:48:00 labetalol 2011-0 No Gregory F 5 mg, Mendoza janice 3-16 [place] Route: IV, l 14:40: ONCE, [place] 00 Start date: 09/04/11 9:40:00, Stop date: 09/04/11 9:40:00 ondansetron 2011-0 No Hollie 4 mg, 2 Me moria 3-16 Bekc mL, Route: l 13:37: Hayden IVP, Drug Nidia nn 00 form: INJ, ONCE, PRN Nausea & Vomiting, Start date: 09/04/11 8:37:00 naloxone 2011-0 No Hollie 0.04 mg, Mendoza janice 3-16 [...] 3-16 Kavon 0.25 mL, l 13:37: Route: [place] 00 IVP, Drug form: INJ, Q5Min, PRN Pain Score 4-6, Start date: 09/04/11 8:37:00, Duration: 5 doses or times, Stop date: Limited # of times clindamycin No Eber L 600 mg, 4 Memoria 3-15 Anabelle mL, Route: l 16:00: IVPB, [place] 00 [id number], Start date: 09/03/11 11:00:00, Duration: 30 day, Stop date: 10/03/11 8:00:00 potassium No [place] 40 mEq, 2 M emoria chloride 3-15 Omidvar tab, l 13:39: Route: PO, Vin 00 Drug form: ERTAB, ONCE, Start date: 09/03/11 8:39:00, Stop date: 09/03/11 8:39:00 [place] 5/325 2011-0 No Rosalino 1 tab, M emoria oral tablet 3-15 Kavon Route: PO, l 05:00: Drug Form: Vin 00 TAB, Q4H, Start date: 09/03/11 0:00:00, Duration: 30 day, Stop date: 10/02/11 20:00:00 Geodon 2011-0 No Eber L 120 mg, 3 Memoria 3-15 Anabelle cap, l 02:00: Route: PO, [place] 00 Drug form: CAP, Bedtime, Start date: [...] 3-14 Anabelle cap, l 17:00: Route: PO, [place] 00 Drug form: ERCAP, Daily, Give qAM after today's dose., Start date: 09/02/11 12:00:00, Duration: 30 day, Stop date: 10/02/11 9:00:00 [place] 5/325 2011-0 No Rosalino 1 tab, M [...] 3-14 Anabelle Route: l 14:00: IVPB, Drug [place] 00 form: INJ, [id number], Start date: 09/02/11 9:00:00, Duration: 30 day, Stop date: 10/01/11 21:00:00 clindamycin 2011-0 No Eber L 600 mg, 4 Memoria (SCIP) 3-14 Anabelle mL, Route: l 10:00: IVPB, [place] 00 [id number], Start date: 09/02/11 5:00:00, Duration: 3 doses or times, Stop date: 09/02/11 21:00:00 clindamycin 2011-0 No Yury 600 mg, 4 Memoria (SCIP) 3-14 Silverio mL, Route: l 04:00: Connally IVPB, [place] 00 [id number], Start date: 09/01/11 23:00:00, Duration: 3 doses or times, Stop date: 09/02/11 15:00:00 insulin 2011-0 No [place] 15 unit, Mendoza janice isophane-[employer] 3-14 Omidvar 0.15 mL, l H 02:00: Route: Vin 00 SUB-Q, Drug form: INJ, Q12H, Start date: 09/01/11 21:00:00, Stop date: 10/01/11 9:00:00 labetalol No Mariaelena-Corea 5 mg, Me moria 3-14 Barbra Route: l 01:07: Feliciano IVP, [place] 00 Q5Min, PRN Elevated BP, Start date: [...] Route: l 01:07: Feliciano IVP, Vin 00 Q2MIN, PRN Narcotic Reversal, Start date: 09/01/11 20:07:00, Duration: 8 doses or times, Stop date: Limited # of times flumazenil No Mariaelena-Corea 0.2 mg, Memoria 3-14 Barbra Route: l 01:07: Feliciano IVP, PRN, [place] 00 PRN Benzodiaze pine Reversal, Initial dose, Start date: 09/01/11 20:07:00, Duration: 30 day, Stop date: 10/01/11 20:06:00 ondansetron No Mariaelena-Corea 4 mg, Memoria 3-14 Barbra Route: l 01:07: Feliciano IVP, ONCE, [place] 00 PRN Nausea & Vomiting, Start date: 09/01/11 20:07:00 vancomycin No Mele 1 gm, Mem oria 3-14 Gauvain Route: l 01:00: IVPB, Drug form: INJ, [id number], Start date: 09/01/11 20:00:00, Duration: 30 day, Stop date: 10/01/11 8:00:00 Lactated No Charbel A 1,000 mL, Memoria Ringers IV 3-14 Wong Rate: 125 l 1,000 mL 00:55: ml/hr, Vin 00 Infuse over: 8 hr, Route: IV, Dosing Weight 68.2 kg, Total Volume: 1,000, Start date: 09/01/11 19:55:00, Duration: 30 day, Stop date: 10/01/11 19:54:00 vancomycin No Missael 1 gm, Memor ia 3-14 Movva Route: l 00:00: IVPB, Drug form: INJ, [id number], Start date: 09/01/11 19:00:00, Duration: 30 day, Stop date: 10/01/11 7:00:00 insulin 2011-0 No Missael 6 unit, Memori a aspart 3-13 Movva 0.06 mL, l 23:23: Route: [place] 00 SUB-Q, Drug form: SOLN, TID-Before Meals, PRN Blood Glucose Results, Start date: 09/01/11 18:23:00, Duration: 30 day, Stop date: 10/01/11 18:22:00 glucagon 2011-0 No Missael 1 mg, Memoria 3-13 Movva Route: IM, l 23:23: Drug form: Vin PDR/INJ, PRN, PRN Blood Glucose Results, Start date: 09/01/11 18:23:00, Duration: 30 day, Stop date: 10/01/11 18:22:00 Dextrose 2011-0 No Missael 25 gm, 50 Mem oria 50% Syringe 3-13 Movva mL, Route: l 23:23: IVP, Drug [place] 00 Form: INJ, PRN, PRN Blood Glucose [...] mL, Me moria Ringers IV 3-13 [place] Rate: 100 l 1,000 mL 19:03: ml/hr, [place] 00 Infuse over: 10 hr, Route: IV, [...] Madden 0.08 mL, l 15:28: Gurinder Route: [place] 00 SUB-Q, Drug form: SOLN, ONCE, Priority: STAT, Start date: 09/01/11 10:28:00, Stop date: 09/01/11 10:28:00 Sodium 2011-0 No [place] 1,000 mL, Memori a Chloride 3-13 [place] Rate: l 0.9% 14:53: Gurinder 1,000 [place] (Bolus) IV 00 ml/hr, 1,000 mL Infuse [...] or times, Stop date: 09/01/11 6:40:00 ondansetron 2011- No Bee L 4 mg, Memoria 08-31 [place] Route: l 09:06: IVP, Drug Vin 00 form: INJ, ONCE, Priority: STAT, Start date: 09/01/11 4:06:00, Stop date: 09/01/11 4:06:00 morphine 2011-0 No Bee L 4 mg, Mem oria Sulfate 08-31 [place] Route: l 09:06: IVP, ONCE, Vin 00 Priority: STAT, Start date: 09/01/11 4:06:00, Stop date: 09/01/11 4:06:00 Sodium 2011-0 No Bee L 1,000 mL, M emoria Chloride 08-31 [place] Rate: l 0.9% 08:42: 1,000 Vin (Bolus) IV 00 ml/hr, 1000 mL Infuse over: 1 hr, Route: IV, Dosing Weight 68.182 kg, Total Volume: 1,000, Bolus Dose, Priority: STAT, Start date: 09/01/11 3:42:00, Duration: 1 doses or times, Stop date: 09/01/11 4:41:00 Insulin 2011- No Bee L 8 unit, Me moria regular 08-31 [place] 0.08 mL, l 08:30: Route: Vin 00 IVP, Drug form: SOLN, ONCE, Priority: STAT, Start date: 09/01/11 3:30:00, Stop date: 09/01/11 3:30:00 Sodium 2011-0 No Bee L 1,000 mL, M emoria Chloride 08-31 [place] Rate: l 0.9% 07:29: 1,000 [place] (Bolus) IV 00 ml/hr, 1,000 mL Infuse over: 1 hr, Route: IV, Dosing Weight 68.182 kg, Total Volume: 1,000, Bolus Dose, Priority: STAT, Start date: 09/01/11 2:29:00, Duration: 1 doses or times, Stop date: 09/01/11 3:28:00 potassium 2011-0 No Velásquez Noam 40 mEq, 2 Memoria chloride 3-04 Akmal tab, l 15:00: Route: PO, [place] 00 Drug form: ERTAB, BID, Start date: [...] Akmal SUB-Q, l units/mL 14:42: BID, 3 [place] subcutaneou 04 vial, 3, s injection 3, Substituti on Allowed, SUSP insulin Yes Velásquez Noam 5 Units, Memoria regular 3-04 [place] SUB-Q, l human 14:40: TID, 30 [place] recombinant 10 vial, 3, 100 3, units/mL Substituti injectable on solution Allowed, before breakfast lunch and dinner, [facility] breakfast lunch and dinner potassium No Velásquez Noam 20 mEq, Memoria chloride 3-04 Akmal 100 mL, l 14:00: Route: [place] 00 IVPB, Drug form: INJ, Q2H, Start date: 08/23/11 8:00:00, Duration: 2 doses or times, Stop date: 08/23/11 10:00:00 calcium 2011-0 No Velásquez Noam 1 gm, Mem oria chloride 3-04 Akmal Route: l 13:28: IVPB, Vin 00 ONCE, Priority: STAT, Start date: 08/23/11 7:28:00, Stop date: 08/23/11 7:28:00 potassium 2011-0 No Velásquez Noam 40 mEq, Memoria chloride [...] Akmal mL, Route: l 12:26: IVPB, Drug [place] form: INJ, ONCE, Total dose = 2 [...] Rodriguez 10 mL, l 16:25: Ahmed Route: [place] 00 IVPB, ONCE, Start date: 08/22/11 10:25:00, [...] Akmal mL, Route: l 13:26: IVPB, Drug Vin 00 form: INJ, ONCE, [...] 100 mL, l 15:12: Rivero Route: Nidia IVPB, Drug form: INJ, ONCE, Start date: 08/21/11 9:12:00, Stop date: 08/21/11 9:12:00 lisinopril 2011-0 No Velásquez Noam 40 mg, 2 Memoria 3-02 Akmal tab, l 15:00: Route: PO, [place] 00 Drug form: TAB, Daily, Start date: [...] mL, Route: l 17:15: Ahmed IVP, Drug [place] 00 form: INJ, Q8H, PRN Nausea, Start date: 08/20/11 11:15:00, Duration: 30 day, Stop date: 09/19/11 11:14:00 insulin 2011-0 No Yury 10 unit, Mem oria isoph[employer] 3- [place] Route: l H 16:00: Rivero SUB-Q, Nidia nn 00 ONCE, Start date: 08/20/11 10:00:00, Stop date: 08/20/11 10:00:00 trazodone 2011-0 Yes 200 mg, 2 Mem oria 100 mg oral 3-01 tab, PO, l tablet 15:37: Bedtime, [place] 27 90 tab, Substituti on Allowed, TAB [...] insulin No Yury 10 unit, Mem oria isophane[employer] 3- [place] Route: l H 15:00: Rivero [...] No Yury 6 unit, Mendoza janice regular 3- [place] 0.06 mL, l 09:38: Rivero Route: Nidia nn SUB-Q, Drug form: SOLN, ONCE, Start date: 08/20/11 3:38:00, Stop date: 08/20/11 3:38:00 Insulin 2011-0 No Velásquez Noam 10 unit, Memoria regular - [place] SUB-Q, l 09:28: BID, [place] 23 Substituti on Allowed insulin 2011- No 10 unit, Memori a isophane-[employer] 3- SUB-Q, l H 09:26: BID, [place] 18 Substituti on Allowed NS 1,000 mL No Velásquez Noam 1,000 mL, Memoria - [place] Rate: 150 l 09:06: ml/hr, [place] 00 Infuse over: 6.7 hr, Route: IV, Total Volume: 1,000, Start date: 08/20/11 3:06:00, Duration: 30 day, Stop date: 09/19/11 3:05:00 insulin 2011- No Yury 3 unit, Mendoza janice aspart 3- [place] 0.03 mL, l 09:06: Rivero Route: Nidia nn SUB-Q, Drug form: SOLN, Bedtime, PRN Blood Glucose Results, Start date: 08/20/11 3:06:00, Duration: 30 day, Stop date: 09/19/11 3:05:00 enoxaparin No Yury 40 mg, 0.4 Memoria 3-01 [place] mL, Route: l 09:00: Rivero SUB-Q, Nidia nn 00 Drug form: INJ, Daily, Priority: Routine, Start date: 08/20/11 3:00:00, Duration: 30 day, Stop date: 09/18/11 9:00:00 insulin 2011-0 No Yury 18 unit, Mem oria isophane[employer] 3-01 [place] 0.18 mL, l H 08:58: [...] 25 gm, 50 M emoria 50% Syringe 3- [place] mL, Route: l 08:48: Rivero IVP, Drug He rm Form: INJ, PRN, PRN Blood Glucose Results, Start date: 08/20/11 2:48:00, Duration: 30 day, Stop date: 09/19/11 3:47:00 Insulin No Yury 3 unit, Mnedoza janice regular 08-19 [place] Route: l 08:48: Rivero SUB-Q, Nidia nn Bedtime, PRN Blood Glucose Results, Start date: 08/20/11 2:48:00, Duration: 30 day, Stop date: 09/19/11 2:47:00 Dextrose No Yury 25 gm, 50 M emoria 50% Syringe 3-01 [place] ml, Route: l 08:46: Rivero IVP, Drug He rmann 00 Form: INJ, PRN, PRN Blood Glucose Results, Start date: 08/20/11 2:46:00, Duration: 30 day, Stop date: 09/19/11 3:45:00 ondansetron No Hughes-Jason 4 mg, M emoria 08-19 [place] Route: l 07:42: Dawson IVP, Drug Herm naeem 00 Pu form: INJ, ONCE, Priority: STAT, Start date: 08/20/11 1:42:00, Stop date: 08/20/11 1:42:00 GI cocktail 2011- No Hughes-Jason 30 ml, Memoria 08-19 [place] Route: PO, l 05:12: Dawson Drug Form: Her braden 00 Pu SUSP, ONCE, STAT, Start date: 08/19/11 23:12:00, Stop date: 08/19/11 23:12:00 ondansetron No Hughes-Jason 4 mg, M emoria 08-19 [place] Route: PO, l 05:10: Dawson Drug form: Her braden 00 Pu TABDIS, ONCE, Priority: STAT, Start date: 08/19/11 23:10:00, Stop date: 08/19/11 23:10:00 Lactated No Hughes-Jason 1,000 mL, Memoria Ringers 08-19 [place] Rate: l (Bolus) IV 05:10: 1,000 He rmann 1000 mL 00 Pu ml/hr, Infuse over: 1 hr, Route: IV, Total Volume: 1,000, Bolus Dose, Priority: STAT, Start date: 08/19/11 23:10:00, Duration: 1 doses or times, Stop date: 08/20/11 0:09:00 Insulin No Hughes-Jason 7 unit, Mem oria regular 08-19 [place] 0.07 mL, l 04:15: Dawson Route: [place] 00 Pu SUB-Q, Drug form: SOLN, ONCE, Priority: STAT, Start date: 08/19/11 22:15:00, Stop date: 08/19/11 22:15:00 Geodon 60 No Yury 60 mg, 1 M emoria mg oral 2-29 [place] cap, PO, l capsule 23:24: Rivero BID, 180 [place] 43 cap, Substituti on Allowed, CAP trazodone No 300 mg, 1 Mem oria 300 mg oral 2-29 tab, PO, l tablet 23:23: Bedtime, [place] 58 15 tab, Substituti on Allowed, TAB [...] 08/19/11 15:57:00, Stop date: 08/19/11 15:57:00 Reglan 2011-0 No William 10 mg, Memoria Wong Route: [...] Diastolic (mm Hg) 2016-07-30 14:00:00 Mem orial [place] Respitory Rate 2016-07-30 14:00:00 Memori al Vin Heart Rate 2016-07-30 14:00:00 Memorial Vin Temperature Oral (F) 2016-07-30 14:00:00 97.4 F Memorial Vin Systolic (mm Hg) 2016-07-30 10:45:00 Mendoza rial Vin Diastolic (mm Hg) 2016-07-30 10:45:00 Mem orial [place] Heart Rate 2016-07-30 10:45:00 Memorial Vin Temperature Oral (F) 2016-07-30 10:45:00 97.2 F Memorial Vin Respitory Rate 2016-07-30 10:45:00 Memori al [place] Heart Rate 2016-07-30 06:35:00 Memorial [place] Temperature Oral (F) 2016-07-30 06:35:00 97.0 F Memorial [place] Respitory Rate 2016-07-30 06:35:00 Memori al [place] Systolic (mm Hg) 2016-07-30 06:35:00 Mendoza rial [place] Diastolic (mm Hg) 2016-07-30 06:35:00 Mem orial Vin Weight 2016-07-24 02:13:00 Memorial Vin BMI Calculated 2016-07-24 02:13:00 Memori al [place] Height 2016-07-24 02:13:00 160.02 cm Memorial [place] Respitory Rate 2016-06-15 15:00:00 Memori al [place] Systolic (mm Hg) 2016-06-15 15:00:00 Mendoza rial Vin Diastolic (mm Hg) 2016-06-15 15:00:00 Mem orial Vin Respitory Rate 2016-06-15 14:00:00 Memori al [place] Systolic (mm Hg) 2016-06-15 14:00:00 Mendoza rial [place] Diastolic (mm Hg) 2016-06-15 14:00:00 Mem orial Vin Respitory Rate 2016-06-15 13:29:00 Memori al Vin Systolic (mm Hg) 2016-06-15 13:29:00 Mendoza rial Vin Diastolic (mm Hg) 2016-06-15 13:29:00 Mem orial [place] Temperature Oral (F) 2016-06-14 10:56:00 97.1 F Memorial [place] Temperature Oral (F) 2016-06-14 06:55:00 97.1 F Memorial [place] Temperature Oral (F) 2016-06-12 10:00:00 96.8 F Memorial [place] Weight 2016-06-11 04:25:00 Memorial Vin Height 2016-06-11 04:25:00 160.02 cm Memorial [place] BMI Calculated 2016-06-11 04:25:00 Memori al [place] Heart Rate 2016-06-11 02:04:00 Memorial Vin Heart Rate 2016-06-11 00:00:00 Memorial [place] Heart Rate 2016-06-10 20:30:00 Memorial Vin Weight 2016-06-10 16:04:00 Memorial Vin BMI Calculated 2016-06-10 16:04:00 Memori al [place] Height 2016-06-10 16:04:00 160.02 cm Memorial Vin Temperature Oral (F) 2014-06-26 15:12:00 98.0 F Memorial [place] Systolic (mm Hg) 2014-06-26 15:12:00 Mendoza rial Vin Heart Rate 2014-06-26 15:12:00 Memorial Vin Diastolic (mm Hg) 2014-06-26 15:12:00 Mem orial Vin Respitory Rate 2014-06-26 15:12:00 Memori al Vin Systolic (mm Hg) 2014-06-26 13:53:00 Mendoza rial Vin Diastolic (mm Hg) 2014-06-26 13:53:00 Mem orial [place] Respitory Rate 2014-06-26 13:53:00 Memori al Vin Temperature Oral (F) 2014-06-26 13:53:00 98.0 F Memorial Vin Temperature Oral (F) 2014-06-26 12:37:00 98.2 F Memorial [place] Respitory Rate 2014-06-26 12:37:00 Memori al [place] Systolic (mm Hg) 2014-06-26 12:37:00 Mendoza rial Vin Diastolic (mm Hg) 2014-06-26 12:37:00 Mem orial [place] Heart Rate 2014-06-26 09:21:00 Memorial Vin Heart Rate 2014-06-26 06:08:00 Memorial [place] Height 2014-06-26 05:35:00 154.94 cm Memorial [place] Weight 2014-06-26 05:35:00 Memorial [place] BMI Calculated 2014-06-26 05:35:00 Memori al Vin Respitory Rate 2013-04-15 06:10:00 Memori al [place] Diastolic (mm Hg) 2013-04-15 06:10:00 Mem orial [place] Heart Rate 2013-04-15 06:10:00 Memorial Vin Systolic (mm Hg) 2013-04-15 06:10:00 Mendoza rial Vin Temperature Oral (F) 2013-04-15 06:10:00 98.7 F Memorial [place] Respitory Rate 2013-04-15 05:37:00 Memori al Vin Diastolic (mm Hg) 2013-04-15 05:37:00 Mem orial [place] Systolic (mm Hg) 2013-04-15 05:37:00 Mendoza rial [place] Temperature Oral (F) 2013-04-15 05:37:00 98.2 F Memorial [place] Heart Rate 2013-04-15 05:37:00 Memorial [place] Height 2013-04-15 02:06:00 160.02 cm Memorial Vin Weight 2013-04-15 02:06:00 Memorial [place] Temperature Oral (F) 2013-04-15 02:06:00 98.6 F Memorial Vin Respitory Rate 2013-04-15 02:06:00 Memori al [place] Heart Rate 2013-04-15 02:06:00 Memorial [place] Diastolic (mm Hg) 2013-04-15 02:06:00 Mem orial [place] Systolic (mm Hg) 2013-04-15 02:06:00 Mendoza rial [place] Weight 2012-03-14 21:33:00 Memorial [place] Systolic (mm Hg) 2011-12-01 00:33:00 Mendoza rial [place] Respitory Rate 2011-12-01 00:33:00 Memori al Vin Heart Rate 2011-12-01 00:33:00 Memorial Vin Diastolic (mm Hg) 2011-12-01 00:33:00 Mem orial Vin Temperature Oral (F) 2011-12-01 00:33:00 99.6 F Memorial [place] Diastolic (mm Hg) 2011-11-30 21:00:00 Mem orial [place] Heart Rate 2011-11-30 21:00:00 Memorial Vin Respitory Rate 2011-11-30 21:00:00 Memori al Vin Systolic (mm Hg) 2011-11-30 21:00:00 Mendoza rial [place] Temperature Oral (F) 2011-11-30 21:00:00 99.8 F Memorial Vin Respitory Rate 2011-11-30 16:30:00 Memori al [place] Systolic (mm Hg) 2011-11-30 16:30:00 Mendoza rial Vin Diastolic (mm Hg) 2011-11-30 16:30:00 Mem orial [place] Heart Rate 2011-11-30 16:30:00 Memorial Vin Temperature Oral (F) 2011-11-30 16:30:00 99.8 F Memorial Vin Weight 2011-11-29 11:40:00 Memorial [place] Height 2011-11-29 11:40:00 157.48 cm Memorial [place] Weight 2011-11-28 17:16:00 Memorial Vin Weight 2011-09-18 13:30:00 Memorial Vin Height 2011-09-18 13:30:00 154.94 cm Memorial [place] Heart Rate 2011-09-09 13:31:00 Memorial [place] Systolic (mm Hg) 2011-09-09 13:02:00 Mendoza rial Vin Diastolic (mm Hg) 2011-09-09 13:02:00 [facility] Respitory Rate 2011-09-09 13:02:00 [facility] Temperature Oral (F) 2011-09-09 13:02:00 97.5 F [facility] Diastolic (mm Hg) 2011-09-09 08:00:00 [facility] Heart Rate 2011-09-09 08:00:00 [facility] Temperature Oral (F) 2011-09-09 08:00:00 98.6 F [facility] Respitory Rate 2011-09-09 08:00:00 [facility] Systolic (mm Hg) 2011-09-09 08:00:00 [facility] Respitory Rate 2011-09-09 04:55:00 [facility] Diastolic (mm Hg) 2011-09-09 04:55:00 [facility] Systolic (mm Hg) 2011-09-09 04:55:00 [facility] Heart Rate 2011-09-09 04:55:00 [facility] Temperature Oral (F) 2011-09-09 00:55:00 98.7 F [facility] Weight 2011-09-01 19:59:00 [facility] Height 2011-09-01 19:59:00 154.94 cm [facility] Height 2011-09-01 07:01:00 154.94 cm [facility] Weight 2011-09-01 07:01:00 [facility] Respitory Rate 2011-08-23 18:00:00 [facility] Heart Rate 2011-08-23 18:00:00 [facility] Systolic (mm Hg) 2011-08-23 18:00:00 [facility] Diastolic (mm Hg) 2011-08-23 18:00:00 [facility] Temperature Oral (F) 2011-08-23 18:00:00 97.7 F [facility] Heart Rate 2011-08-23 14:24:00 [facility] Temperature Oral (F) 2011-08-23 14:24:00 98.2 F [facility] Diastolic (mm Hg) 2011-08-23 14:24:00 [facility] Systolic (mm Hg) 2011-08-23 14:24:00 [facility] Respitory Rate 2011-08-23 14:24:00 [facility] Systolic (mm Hg) 2011-08-23 11:15:00 [facility] Diastolic (mm Hg) 2011-08-23 11:15:00 [facility] Temperature Oral (F) 2011-08-23 11:00:00 98.3 F [facility] Heart Rate 2011-08-23 11:00:00 [facility] Respitory Rate 2011-08-22 22:00:00 [facility] Height 2011-08-20 09:12:00 154.94 cm [facility] Weight 2011-08-20 09:12:00 [facility] Height 2011-08-19 20:28:00 154.94 cm [facility] Weight 2011-08-19 20:28:00 [facility] Procedures Procedure Date / Time Performed Performing Clinician [facility] e Emergency department visit 2013-04-15 05:00:00 [facility] for the evaluation and management of a patient, which requires these 3 kamara components within the constraints imposed by the urgency of the patient's clinical condition and/or mental status: A comprehensive history; A comprehensi Injection or Infusion of 2013-04-15 05:00:00 Mem orial Vin Other Therapeutic or Prophylactic Substance Intravenous infusion, 2013-04[facility]15 [facility] [place] [facility]; each additional hour (List separately in addition to code for primary procedure) Therapeutic, prophylactic, 2013-04-15 05:00:00 [facility] [place] or diagnostic injection (specify substance or drug); each additional sequential intravenous push of a new substance/drug (List separately in addition to code for primary procedure) Therapeutic, prophylactic, 2013-04-15 05:00:00 [facility] [place] or diagnostic injection (specify substance or drug); intravenous push, single or initial [facility] Start End Encounter Admission Attending Care Care Encounter Source Date/Time Date/Time Type Type Clinicians Facility Department ID 2020-09-24 2020-09-24 Refill JARON Gonzalez [id number] 00:00:00 00:00:00 Jose Luis Sims [id number] Fausto [id number] Professimtiaz [id number] [facility] Building 2020-09-09 2020-09-09 Patient JARON Sanchez [id number] 00:00:00 00:00:00 Outreach Earl PRIMARY [id number] Manuel CARE [id number] PAVILLION [id number] 2020-07-23 2020-07-23 Office Black [facility] [id number] 13:31:20 14:37:36 Visit Deja PRIMARY [id number] A CARE [id number] PAVILLION [id number] 2020-01-25 2020-01-31 Inpatient 1 Jose Waldronkeel [facility] GPY [id number] 21:31:00 18:15:00 Rei Waldron [facility] 2016-07-23 2016-07-30 Outpatient Yaquelin [facility] [id number] 20:04:00 10:20:00 Luna 10 2016-06-10 2016-06-15 Outpatient Franck [facility] [id number] 10:02:00 12:23:00 Joe Yan 09 2014-06-25 2014-06-26 [id number] 23:25:00 09:14:00 Atul Priest 2013-04-14 2013-04-15 Outpatient [facility] [id number] Memoria 21:04:00 01:45:00 [place] Vin 07 l [facility] 2013-04-14 2013-04-15 Outpatient [facility] [id number] Memoria 21:04:00 01:45:00 [place] Vin 07 l [facility] 2013-04-14 2013-04-15 Outpatient [facility] [id number] Memoria 21:04:00 01:45:00 Vin Vin 07 l [facility] 2013-04-14 2013-04-15 Outpatient [facility] [id number] Memoria 21:04:00 01:45:00 [place] Vin 07 l [facility] 2013-04-14 2013-04-15 Outpatient [facility] [id number] Memoria 21:04:00 01:45:00 Vin Banuelos 07 l [facility] e [facility] Results Test Description Test Time [...] the main Lab for analysi s. Urine [id number] 11:32:13 Test Item Value Reference Range Interpretation [...] Escherichia coli C Urine Added by GL_SJM_UA_CUL_INDPOC [id number] 07:52:10 Test Item Value Reference Range Interpretation Comments Glucose POC (test 160 mg/dL 70-115 H If you con pipelayer your code = Glucose POC) patient critically ill, the Merlin-Accu Check Infrom II meter should not be used for Glucose determination. Draw a venous Glucose and send to the main Lab for analysis. POC [id number] 19:32:05 Test Item Value Reference Range Interpretation Comments Glucose POC (test 184 mg/dL 70-115 H If you con pipelayer your code = Glucose POC) patient critically ill, the Merlin-Accu Check Infrom II meter should not be used for Glucose determination. Draw a venous Glucose and send to the main Lab for analysis. POC [id number] 17:16:35 Test Item Value Reference Range Interpretation Comments Glucose POC (test 281 mg/dL 70-115 H Notify RN or MDIf you code = Glucose POC) consider your patient critically ill, the Merlin-Accu Chec k Infrom II meter should not be used for Glucos e determination. Draw a venous Glucose and send to the main Lab for analysis. POC [id number] 12:00:38 Test Item Value Reference Range Interpretation Comments Glucose POC (test 138 mg/dL 70-115 H Notify RN or MDIf you code = Glucose POC) consider your patient critically ill, the Merlin-Accu Chec k Infrom II meter should not be used for Glucos e determination. Draw a venous Glucose and send to the main Lab for analysis. POC [id number] 07:41:32 Test Item Value Reference Range Interpretation Comments Glucose POC (test 206 mg/dL 70-115 H Notify RN or MDIf you code = Glucose POC) consider your patient critically ill, the Emrlin-Accu Chec k Infrom II meter should not be used for Glucos e determination. Draw a venous Glucose and send to the main Lab for analysis. Urinalysis [id number] 21:07:21 Test Item Value Reference Range Interpretation Comments UA WBC (test code = UA WBC) TNTC 0-5 A UA RBC (test code = UA RBC) 6-10 0-5 A UA Bacteria (test code = UA Bacteria) Profuse A UA Squam Epithelial (test code = UA 6-10 A Squam Epithelial) Urinalysis with Culture, if [id number] 20:35:14 Test Item Value Reference Range Interpretation [...] Micro Indicated Not Indicated A Ind?) POC [id number] 19:06:34 Test Item Value Reference Range Interpretation Comments Glucose POC (test 207 mg/dL 70-115 H If you con pipelayer your code = Glucose POC) patient critically ill, the Merlin-Accu Check Infrom II meter should not be used for Glucose determination. Draw a venous Glucose and send to the main Lab for analysis. POC [id number] 17:12:03 Test Item Value Reference Range Interpretation Comments Glucose POC (test 173 mg/dL 70-115 H Notify RN or MDIf you code = Glucose POC) consider your patient critically ill, the Merlin-Accu Chec k Infrom II meter should not be used for Glucos e determination. Draw a venous Glucose and send to the main Lab for analysis. POC [id number] 11:58:01 Test Item Value Reference Range Interpretation Comments Glucose POC (test 289 mg/dL 70-115 H Notify RN or MDIf you code = Glucose POC) consider your patient critically ill, the Merlin-Accu Chec k Infrom II meter should not be used for Glucos e determination. Draw a venous Glucose and send to the main Lab for analysis. POC [id number] 08:19:37 Test Item Value Reference Range Interpretation Comments Glucose POC (test 201 mg/dL 70-115 H Notify RN or MDIf you code = Glucose POC) consider your patient critically ill, the Merlin-Accu Chec k Infrom II meter should not be used for Glucos e determination. Draw a venous Glucose and send to the main Lab for analysis. POC [id number] 20:37:35 Test Item Value Reference Range Interpretation Comments Glucose POC (test 272 mg/dL 70-115 H If you con pipelayer your code = Glucose POC) patient critically ill, the Merlin-Accu Check Infrom II meter should not be used for Glucose determination. Draw a venous Glucose and send to the main Lab for analysis. POC [id number] 17:23:05 Test Item Value Reference Range Interpretation Comments Glucose POC (test 229 mg/dL 70-115 H If you con pipelayer your code = Glucose POC) patient critically ill, the Merlin-Accu Check Infrom II meter should not be used for Glucose determination. Draw a venous Glucose and send to the main Lab for analysis. POC [id number] 12:01:01 Test Item Value Reference Range Interpretation Comments Glucose POC (test 155 mg/dL 70-115 H If you con pipelayer your code = Glucose POC) patient critically ill, the Merlin-Accu Check Infrom II meter should not be used for Glucose determination. Draw a venous Glucose and send to the main Lab for analysis. POC [id number] 08:07:32 Test Item Value Reference Range Interpretation Comments Glucose POC (test 248 mg/dL 70-115 H If you con pipelayer your code = Glucose POC) patient critically ill, the Merlin-Accu Check Infrom II meter should not be used for Glucose determination. Draw a venous Glucose and send to the main Lab for analysis. IG [id number] 06:50:39 Test Item Value Reference Range Interpretation Comments IG (test code = IG) 0.7 % 0.0-5.0 IG Abs (test code = IG Abs) 0 x10 N Complete Blood Count with [id number] 06:50:38 Test Item Value Reference Range Interpretation [...] code = IPF) 0 % N Automated [id number] 06:50:38 Test Item Value Reference Range Interpretation Comments Neutro Auto (test code = Neutro 50.3 % 36.0-70.0 Auto) Lymph Auto (test code = Lymph Auto) 38.6 % 12.0-44.0 Carver Auto (test code = Carver Auto) 7.3 % 0.0-11.0 Eos, Auto (test code = Eos, Auto) 2.4 % 0.0-7.0 Basophil Auto (test code = Basophil 0.7 % 0.0-2.0 Auto) Neutro Absolute (test code = Neutro 3.0 x10 1.6-7.4 Absolute) Lymph Absolute (test code = Lymph 2.28 x10 .50-4.60 Absolute) Carver Absolute (test code = Carver .43 x10 .00-1.20 Absolute) Eos Absolute (test code = Eos 0.14 x10 0.00-0.74 Absolute) Baso Absolute (test code = Baso 0.04 x10 0.00-0.21 Absolute) Basic Metabolic [id number] 05:38:20 Test Item Value Reference Range Interpretation [...] = Lipemia) 0 mg/dL 8-11 Basic Metabolic [id number] 05:38:20 Test Item Value Reference Range Interpretation [...] = 0 mg/dL 8-11 Lipemia) Basic Metabolic [id number] 05:38:20 Test Item Value Reference Range Interpretation [...] code = 0 mg/dL 8-11 Lipemia) POC [id number] 20:28:33 Test Item Value Reference Range Interpretation Comments Glucose POC (test 169 mg/dL 70-115 H If you con pipelayer your code = Glucose POC) patient critically ill, the Merlin-Accu Check Infrom II meter should not be used for Glucose determination. Draw a venous Glucose and send to the main Lab for analysis. POC [id number] 16:39:30 Test Item Value Reference Range Interpretation Comments Glucose POC (test 103 mg/dL 70-115 If you con pipelayer your code = Glucose POC) patient critically ill, the Merlin-Accu Check Infrom II meter should not be used for Glucose determination. Draw a venous Glucose and send to the main Lab for analysis. RPR [id number] 12:08:56 Test Item Value Reference Range Interpretation Comments RPR Qual (test code = RPR Qual) Non-Reactive Non-Reactive Reactive Control (test code = Reactive Reactive Control) Weak Reactive Control (test Weak Reactive code = Weak Reactive Control) Non-Reactive Control (test code Non-Reactive = Non-Reactive Control) Lot # (test code = Lot #) [id number] N Expiration Dt (test code = 03-20-2021 N Expiration Dt) POC [id number] 11:52:31 Test Item Value Reference Range Interpretation Comments Glucose POC (test 250 mg/dL 70-115 H If you con pipelayer your code = Glucose POC) patient critically ill, the Merlin-Accu Check Infrom II meter should not be used for Glucose determination. Draw a venous Glucose and send to the main Lab for analysis. POC [id number] 07:55:29 Test Item Value Reference Range Interpretation Comments Glucose POC (test 205 mg/dL 70-115 H If you con pipelayer your code = Glucose POC) patient critically ill, the Merlin-Accu Check Infrom II meter should not be used for Glucose determination. Draw a venous Glucose and send to the main Lab for analysis. Lipid [id number] 05:46:04 Test Item Value Reference Range Interpretation [...] LDL/HDL Ratio=L DL Calc/HDL Chol Thyroid Stimulating [id number] 05:46:04 Test Item Value Reference Range Interpretation Comments TSH (test code = TSH) 3.274 mcIU/mL 0.550-4.780 Hemoglobin [id number] 05:41:08 Test Item Value Reference Range Interpretation Comments Hemoglobin A1c (test code 7.6 % 4.0-5.8 H Di abetic >=6.5 = Hemoglobin A1c) %Prediabet es 5.7-6.4 %Normal <5.7 % Hepatitis B Surface [id number] 21:19:36 Test Item Value Reference Range Interpretation Comments Hep Bs Ag (test code = Hep Bs Non-Reactive Non-Reactive Ag) Novel Coronavirus SARS-CoV-2, [id number] 11:16:16 Test Item Value Reference Range Interpretation [...] Emergency Use Authorization." Novel Coronavirus (COVID-19), EMANUEL [id number] 11:11:24TNPTest not sent and performed at [facility].Rapid was perfomed in Microbiology.Wrong covid test was ord ered.Urine DOA [id number] 00:17:49 Test Item Value Reference Range Interpretation [...] Propoxyphene Confirmation wi thin 7 days. Alcohol [id number] 00:17:29 Test Item Value Reference Range Interpretation Comments Ethanol Level 9.0 mg/dL N The pharmacolo gical (test code = response to blo od alcohol Ethanol Level) levels may va ry from individual to i ndividual. The fatal omkar ntration has been report ed to be >400 mg/dl. Comprehensive Metabolic [id number] 00:17:28 Test Item Value Reference Range Interpretation [...] = Lipemia) 0 g/dL 1-2 Comprehensive Metabolic [id number] 00:17:28 Test Item Value Reference Range Interpretation [...] = 0 g/dL 1-2 Lipemia) Comprehensive Metabolic [id number] 00:17:28 Test Item Value Reference Range Interpretation [...] g/dL 1-2 Lipemia) Complete Blood Count with [id number] 23:26:28 Test Item Value Reference Range Interpretation [...] code = IPF) 0 % N Automated [id number] 23:26:28 Test Item Value Reference Range Interpretation Comments Neutro Auto (test code = Neutro 67.1 % 36.0-70.0 Auto) Lymph Auto (test code = Lymph Auto) 23.3 % 12.0-44.0 Carver Auto (test code = Carver Auto) 5.8 % 0.0-11.0 Eos, Auto (test code = Eos, Auto) 2.3 % 0.0-7.0 Basophil Auto (test code = Basophil 0.8 % 0.0-2.0 Auto) Neutro Absolute (test code = Neutro 6.0 x10 1.6-7.4 Absolute) Lymph Absolute (test code = Lymph 2.10 x10 .50-4.60 Absolute) Carver Absolute (test code = Carver .52 x10 .00-1.20 Absolute) Eos Absolute (test code = Eos 0.21 x10 0.00-0.74 Absolute) Baso Absolute (test code = Baso 0.07 x10 0.00-0.21 Absolute) IG [id number] 23:26:28 Test Item Value Reference Range Interpretation Comments IG (test code = IG) 0.7 % 0.0-5.0 IG Abs (test code = IG Abs) 0 x10 N HERPES VIRUS ANTIBODY, [id number] 21:46:00 Test Item Value Reference Range Interpretation Comments HERPES VIRUS IGM (BEAKER) Negative SE E ATTACHMENT (test code = 1808) BLOOD [id number] 06:00:00 Test Item Value Reference Range Interpretation Comments CULTURE (BEAKER) (test No growth in 5 days code = 1095) BLOOD [id number] 06:00:00 Test Item Value Reference Range Interpretation Comments CULTURE (BEAKER) (test No growth in 5 days code = 1095) POCT-GLUCOSE [id number] 12:11:00 Test Item Value Reference Range Interpretation Comments POC-GLUCOSE METER 154 mg/dL 70-110 H TESTED AT [facility] [address] ([facility]) (test code = [place] 1538) [address] POCT-GLUCOSE [id number] 07:53:00 Test Item Value Reference Range Interpretation Comments POC-GLUCOSE METER 87 mg/dL 70-110 TESTED AT [facility] [address] ([facility]) (test code = [place] [address] 1538) POCT-GLUCOSE [id number] 06:49:00 Test Item Value Reference Range Interpretation Comments POC-GLUCOSE METER 79 mg/dL 70-110 TESTED AT [facility] [address] (BEAKER) (test code = [place] [id number]) COMPREHENSIVE METABOLIC [id number] 06:15:00 Test Item Value Reference Range Interpretation [...] S NOT APPLICABLE FOR DIALYSIS PATIEN TS. [id number] 06:11:00 Test Item Value Reference Range Interpretation Comments MAGNESIUM (BEAKER) (test code = 2.1 mg/dL 1.6-2.6 627) HEPATIC FUNCTION [id number] 06:11:00 Test Item Value Reference Range Interpretation [...] code = 513 U/L 6-55 H 347) [id number] 05:30:00 Test Item Value Reference Range Interpretation Comments FIBRINOGEN LEVEL (BEAKER) (test 368 mg/dl 225-434 code = 658) [id number] 05:30:00 Test Item Value Reference Range Interpretation Comments PARTIAL THROMBOPLASTIN TIME 42.2 seconds 22.5-36.0 H (BEAKER) (test code = 760) PROTHROMBIN [id number] 05:29:00 Test Item Value Reference Range Interpretation Comments PROTIME (BEAKER) (test code = 14.8 seconds 11.7-14.7 H 759) INR (BEAKER) (test code = 370) 1.2 <=5.9 RECOMMENDED COUMADIN/WARFARIN INR THERAPY RANGESSTANDARD DOSE: 2.0 - 3.0 Includes: PROPHYLAXIS forvenous thrombosis, systemic embolization; TREATMENT for venous thrombosis and/or pulmonary embolus.HIGH RISK: Target INR is 2.5-3.5 for patients with mechanical heart valves.POCT-GLUCOSE [id number] 21:09:00 Test Item Value Reference Range Interpretation Comments POC-GLUCOSE METER 178 mg/dL 70-110 H TESTED AT [facility] [address] ([facility]) (test code = [place] 1538) [id number] POCT-GLUCOSE [id number] 17:18:00 Test Item Value Reference Range Interpretation Comments POC-GLUCOSE METER 178 mg/dL 70-110 H TESTED AT [facility] [address] ([facility]) (test code = [place] 1538) [address] POCT-GLUCOSE [id number] 13:48:00 Test Item Value Reference Range Interpretation Comments POC-GLUCOSE METER 150 mg/dL 70-110 H TESTED AT [place] [address] ([facility]) (test code = [place] [facility] 1538) [address] FACTOR 5 ACTIVITY (BLEEDING RISK)2017-01-06 10:04:00 Test Item Value Reference Range Interpretation Comments FACTOR V ACTIVITY ([facility]) (test code 90.0 % 60.0-150.0 = 665) Effective 10/24/2013: Reference Range Change-Adult onlyNew: 60.0-150.0 Previous: 50.0-150.0CYTOMEGALOVIRUS ANTIBODY, [id number] 09:42:00 Test Item Value Reference Range Interpretation Comments CYTOMEGALOVIRUS IGM ANTIBODY Negative ([facility]) (test code = 816) HERPES VIRUS ANTIBODY, [id number] 08:59:00 Test Item Value Reference Range Interpretation Comments 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[facility]) (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 G 1807) CYTOMEGALOVIRUS ANTIBODY, [id number] 08:59:00 Test Item Value Reference Range Interpretation Comments CYTOMEGALOVIRUS IGG ANTIBODY Positive ([facility]) (test code = 790) EBV-VCA ANTIBODY, [id number] 08:59:00 Test Item Value Reference Range Interpretation Comments JASE-WALL VCA IGG ([facility]) (test Positive code = 983) EBV-VCA ANTIBODY, [id number] 08:59:00 Test Item Value Reference Range Interpretation Comments JASE-WALL VCA IGM ([facility]) (test Negative code = 984) POCT-GLUCOSE [id number] 07:59:00 Test Item Value Reference Range Interpretation Comments POC-GLUCOSE METER 81 mg/dL 70-110 TESTED AT [facility] [address] ([facility]) (test code = [place] [facility] [address] 1538) COMPREHENSIVE METABOLIC [id number] 06:23:00 Test Item Value Reference Range Interpretation Comments TOTAL PROTEIN 5.3 gm/dL 6.0-8.3 L ([facility]) (test code = 770) ALBUMIN ([facility]) 2.4 g/dL 3.5-5.0 L (test code = 1145) ALKALINE PHOSPHATASE 85 U/L 40-150 ([facility]) (test code = 346) BILIRUBIN TOTAL 1.5 [...] S NOT APPLICABLE FOR DIALYSIS PATIEN TS. [id number] 06:17:00 Test Item Value Reference Range Interpretation Comments MAGNESIUM (BEAKER) (test code = 1.8 mg/dL 1.6-2.6 627) HEPATIC FUNCTION [id number] 06:17:00 Test Item Value Reference Range Interpretation [...] code = 779 U/L 6-55 H 347) [id number] 06:00:00 Test Item Value Reference Range Interpretation Comments FIBRINOGEN LEVEL ([facility]) (test 390 mg/dl 225-434 code = 658) [id number] 06:00:00 Test Item Value Reference Range Interpretation Comments PARTIAL THROMBOPLASTIN TIME 40.2 seconds 22.5-36.0 H ([facility]) (test code = 760) PROTHROMBIN TIME/[id number] 05:59:00 Test Item Value Reference Range Interpretation Comments PROTIME ([facility]) (test code = 14.6 seconds 11.7-14.7 759) INR ([facility]) (test code = 370) 1.2 <=5.9 RECOMMENDED COUMADIN/WARFARIN INR THERAPY RANGESSTANDARD DOSE: 2.0 - 3.0 Includes: PROPHYLAXIS forvenous thrombosis, systemic embolization; TREATMENT for venous thrombosis and/or pulmonary embolus.HIGH RISK: Target INR is 2.5-3.5 for patients with mechanical heart valves.POCT-GLUCOSE [id number] 21:46:00 Test Item Value Reference Range Interpretation Comments POC-GLUCOSE METER 153 mg/dL 70-110 H TESTED AT [place] [address] ([facility]) (test code = [place] [facility] 1538) [address] POCT-GLUCOSE [id number] 18:47:00 Test Item Value Reference Range Interpretation Comments POC-GLUCOSE METER 181 mg/dL 70-110 H TESTED AT [place] [address] ([facility]) (test code = [place] [facility] 1538) [address] POCT-GLUCOSE [id number] 12:40:00 Test Item Value Reference Range Interpretation Comments POC-GLUCOSE METER 178 mg/dL 70-110 H TESTED AT [place] [address] ([facility]) (test code = [place] 1538) [address] POCT-GLUCOSE [id number] 07:51:00 Test Item Value Reference Range Interpretation Comments POC-GLUCOSE METER 166 mg/dL 70-110 H TESTED AT [place] [address] ([facility]) (test code = [place] 1538) [address] COMPREHENSIVE METABOLIC [id number] 03:26:00 Test Item Value Reference Range Interpretation [...] S NOT APPLICABLE FOR DIALYSIS PATIEN TS. [id number] 03:22:00 Test Item Value Reference Range Interpretation Comments MAGNESIUM (BEAKER) (test code = 1.4 mg/dL 1.6-2.6 L 627) HEPATIC FUNCTION [id number] 03:22:00 Test Item Value Reference Range Interpretation [...] code = 1009 U/L 6-55 H 347) [id number] 03:12:00 Test Item Value Reference Range Interpretation Comments AMMONIA (BEAKER) (test code = 348) 29 mol/L 18-72 [id number] 03:10:00 Test Item Value Reference Range Interpretation Comments PARTIAL THROMBOPLASTIN TIME 42.3 seconds 22.5-36.0 H (BEAKER) (test code = 760) PROTHROMBIN [id number] 03:09:00 Test Item Value Reference Range Interpretation Comments PROTIME (BEAKER) (test code = 16.4 seconds 11.7-14.7 H 759) INR (BEAKER) (test code = 370) 1.3 <=5.9 RECOMMENDED COUMADIN/WARFARIN INR THERAPY RANGESSTANDARD DOSE: 2.0 - 3.0 Includes: PROPHYLAXIS forvenous thrombosis, systemic embolization; TREATMENT for venous thrombosis and/or pulmonary embolus.HIGH RISK: Target INR is 2.5-3.5 for patients with mechanical heart valves.[id number] 03:09:00 Test Item Value Reference Range Interpretation Comments FIBRINOGEN LEVEL (BEAKER) (test 413 mg/dl 225-434 code = 658) CBC W/PLT COUNT & AUTO [id number] 03:09:00 Test Item Value Reference Range Interpretation [...] L 0.00-0.20 (test code = 417) 0.00POCT-GLUCOSE [id number] 22:33:00 Test Item Value Reference Range Interpretation Comments POC-GLUCOSE METER 230 mg/dL 70-110 H TESTED AT [facility] [address] ([facility]) (test code = [place] 1538) [address] POCT-GLUCOSE [id number] 18:17:00 Test Item Value Reference Range Interpretation Comments POC-GLUCOSE METER 222 mg/dL 70-110 H TESTED AT [facility] [address] ([facility]) (test code = [place] 1538) [address] COMPREHENSIVE METABOLIC [id number] 16:59:00 Test Item Value Reference Range Interpretation [...] PATIEN TS. PERIPHERAL BLOOD SMEAR - PATHOLOGIST [id number] 15:30:00 Test Item Value Reference Range Interpretation Comments RBC MORPHOLOGY Polychromasia (BEAKER) (test code = 2846) RBC MORPHOLOGY Anisocytosis (BEAKER) (test code = 01173) PERIPHERAL SMR REVIEW Cell counts confirmed (BEAKER) (test code = 5983) [id number] Josefina [place] M.D. (BEAKER) (test code = (electronic signature) 2207) PROTHROMBIN [id number] 15:12:00 Test Item Value Reference Range Interpretation Comments PROTIME (BEAKER) (test code = 16.6 seconds 11.7-14.7 H 759) INR ([facility]) (test code = 370) 1.4 <=5.9 RECOMMENDED COUMADIN/WARFARIN INR THERAPY RANGESSTANDARD DOSE: 2.0 - 3.0 Includes: PROPHYLAXIS forvenous thrombosis, systemic embolization; TREATMENT for venous thrombosis and/or pulmonary embolus.HIGH RISK: Target INR is 2.5-3.5 for patients with mechanical heart valves.ANTI-NUCLEAR ANTIBODY (IVETTE)2017-01-04 14:32:00 Test Item Value Reference Range Interpretation Comments ANTI-NUCLEAR ANTIBODY (IVETTE) (Coaxis) Negative Negative (test code = 418) POCT-GLUCOSE [id number] 12:47:00 Test Item Value Reference Range Interpretation Comments POC-GLUCOSE METER 212 mg/dL 70-110 H TESTED AT [facility] 6720 (Coaxis) (test code = [place] 1538) [address] [id number] 12:34:00 Test Item Value Reference Range Interpretation Comments RPR SCREEN (Coaxis) (test code = Nonreactive Nonreactive 420) CLOSTRIDIUM DIFFICILE TOXIN [id number] 10:12:00 Test Item Value Reference Range Interpretation Comments CLOSTRIDIUM DIFFICILE TOXIN, PCR Not Detected Not Detected (Coaxis) (test code = 1525) This qualitative real-time [...] Reference Range Interpretation Comments FACTOR V ACTIVITY (Coaxis) (test code 86.0 % 60.0-150.0 = 665) Effective 10/24/2013: Reference Range Change-Adult onlyNew: 60.0-150.0 Previous: 50.0-150.0FACTOR 5 ACTIVITY (BLEEDING RISK)2017-01-04 09:13:00 Test Item Value Reference Range Interpretation Comments FACTOR V ACTIVITY (BEAKER) (test code 56.0 % 60.0-150.0 L = 665) Effective 10/24/2013: Reference Range Change-Adult onlyNew: 60.0-150.0 Previous: 50.0-150.0POCT-GLUCOSE [id number] 06:40:00 Test Item Value Reference Range Interpretation Comments POC-GLUCOSE METER 167 mg/dL 70-110 H TESTED AT [facility] 6720 (BEAKER) (test code = [place] 1538) [address] COMPREHENSIVE METABOLIC [id number] 04:08:00 Test Item Value Reference Range Interpretation [...] ESTIM ATED GFR. Specimen slightly ictericHEPATIC FUNCTION [id number] 04:06:00 Test Item Value Reference Range Interpretation [...] 1091 U/L 6-55 H 347) Specimen slightly zeobkamBIWMEUGZPX7194-79-66 04:01:00 Test Item Value Reference Range Interpretation Comments FIBRINOGEN LEVEL (BEAKER) (test 379 mg/dl 225-434 code = 658) [id number] 04:01:00 Test Item Value Reference Range Interpretation Comments PARTIAL THROMBOPLASTIN TIME 40.7 seconds 22.5-36.0 H (BEAKER) (test code = 760) PROTHROMBIN [id number] 04:00:00 Test Item Value Reference Range Interpretation [...] L 0.00-0.20 (test code = 417) 0.00POCT-GLUCOSE [id number] 00:19:00 Test Item Value Reference Range Interpretation Comments POC-GLUCOSE METER 159 mg/dL 70-110 H TESTED AT [facility] 6720 ([place]) (test code = [place] [facility] 1538) [address] POCT-GLUCOSE [id number] 18:56:00 Test Item Value Reference Range Interpretation Comments POC-GLUCOSE METER 192 mg/dL 70-110 H TESTED AT [place] [id number] ([facility]) (test code = [place] [facility] 1538) [id number] COMPREHENSIVE METABOLIC [id number] 16:55:00 Test Item Value Reference Range Interpretation [...] CALCULATE ESTIM ATED GFR. Specimen slightly ictericPROTHROMBIN [id number] 16:37:00 Test Item Value Reference Range Interpretation Comments PROTIME (BEAKER) (test code = 20.9 seconds 11.7-14.7 H 759) INR (BEAKER) (test code = 370) 1.8 <=5.9 RECOMMENDED COUMADIN/WARFARIN INR THERAPY RANGESSTANDARD DOSE: 2.0 - 3.0 Includes: PROPHYLAXIS forvenous thrombosis, systemic embolization; TREATMENT for venous thrombosis and/or pulmonary embolus.HIGH RISK: Target INR is 2.5-3.5 for patients with mechanical heart valves.HEPATITIS B SURFACE [id number] 14:05:00 Test Item Value Reference Range Interpretation Comments HEPATITIS B SURFACE ANTIBODY < mIU/mL <8.0 (BEAKER) (test code = 647) HEPATITIS B CORE ANTIBODY, [id number] 13:43:00 Test Item Value Reference Range Interpretation Comments HEPATITIS B CORE TOTAL ANTIBODY Nonreactive Nonreactive (BEAKER) (test code = 497) BLOOD GAS, [id number] 13:35:00 Test Item Value Reference Range Interpretation [...] code = 1819) 28.0 % URINALYSIS W/ [id number] 13:16:00 Test Item Value Reference Range Interpretation [...] 1584) SOURCE(BEAKER) (test code = Urine, [place] 1765) VITAMIN D, 39-[id number] 13:14:00 Test Item Value Reference Range Interpretation Comments VITAMIN D 25-OH (BEAKER) (test code = < ng/mL 13.0-47.8 L 2764) ALPHA FETOPROTEIN (AFP), TUMOR [id number] 13:06:00 Test Item Value Reference Range Interpretation Comments ALPHA-FETOPROTEIN (BEAKER) (test code < ng/mL <10.0 = 1094) Effective 05/08/2014: Reference Range ChangeNew: <10.0 Previous: 0.0-8.0 HEMOGLOBIN [id number] 13:05:00 Test Item Value Reference Range Interpretation Comments HEMOGLOBIN A1C (BEAKER) (test code = 7.6 % 4.3-6.1 H 368) CARCINOEMBRYONIC ANTIGEN (CEA)2017-01-03 12:59:00 Test Item Value Reference Range Interpretation Comments CARCINOEMBRYONIC ANTIGEN (BEAKER) 2.0 ng/mL 0.0-5.0 (test code = 685) [id number] 12:59:00 Test Item Value Reference Range Interpretation Comments FERRITIN (BEAKER) (test code = 1841 ng/mL 5-275 H 361) Effective 05/08/2014: Reference Range ChangeNew: Male 5-275 Previous: Male 22-322 Female 5-275 Female [id number] 12:58:00 Test Item Value Reference Range Interpretation Comments T4 TOTAL (BEAKER) (test code = 895) 4.5 ug/dL 4.9-11.7 L [id number] 12:58:00 Test Item Value Reference Range Interpretation Comments THYROID STIMULATING HORMONE 1.79 uIU/mL 0.35-4.94 (BEAKER) (test code = 772) [id number] 12:58:00 Test Item Value Reference Range Interpretation Comments T3 TOTAL (BEAKER) (test code = 656) 34 ng/dL 48-159 L Effective 05/08/2014: Reference Range ChangeNew: 48-159 Previous: 60-181 CALCIUM, [id number] 12:47:00 Test Item Value Reference Range Interpretation Comments CALCIUM IONIZED (BEAKER) (test 1.05 mmol/L 1.12-1.27 L code = 698) PH, BLOOD (BEAKER) (test code = 7.43 1810) [id number] 12:42:00 Test Item Value Reference Range Interpretation [...] % 20-55 (test code = 2590) URIC [id number] 12:40:00 Test Item Value Reference Range Interpretation Comments URIC ACID (BEAKER) (test code = 16.0 mg/dL 2.6-7.2 H 773) Specimen slightly ictericLIPID [id number] 12:40:00 Test Item Value Reference Range Interpretation Comments TRIGLYCERIDES (BEAKER) (test code = 134 mg/dL 540) CHOLESTEROL (BEAKER) (test code = 120 mg/dL 631) HDL CHOLESTEROL (BEAKER) (test code 7 mg/dL = 976) LDL CHOLESTEROL CALCULATED ([facility]) 86 mg/dL (test code = 633) Triglyceride Reference Range: Low Risk <150 Borderline 150-199 High Risk 200-499 Very High Risk >=500Cholesterol Reference Range: Low Risk <200 Borderline 200-239 High Risk >240HDL Cholesterol Reference Range: Low Risk >=60 High Risk <40LDL Cholesterol Reference Range: Optimal <100 Near Optimal 100-129 Borderline 130-159 High 160-189 Very High >=190 Specimen slightly ictericBILIRUBIN, [id number] 12:40:00 Test Item Value Reference Range Interpretation Comments BILIRUBIN DIRECT ([facility]) (test 2.4 mg/dL 0.1-0.5 H code = 706) GAMMA GLUTAMYL TRANSFERASE (GGT)2017-01-03 12:40:00 Test Item Value Reference Range Interpretation Comments GAMMA GLUTAMYL TRANSFERASE ([employer]) 53 U/L 9-64 (test code = 364) Specimen slightly coxvbvjXSXLRZY9526-27-16 12:39:00 Test Item Value Reference Range Interpretation Comments ETHANOL (Coaxis) (test code = 400) < mg/dL <=10 SCREEN, [id number] 12:36:00 Test Item Value Reference Range Interpretation Comments TEST URINE ([facility]) (test Negative code = 583) POCT-GLUCOSE [id number] 12:34:00 Test Item Value Reference Range Interpretation Comments POC-GLUCOSE METER 189 mg/dL 70-110 H TESTED AT [facility] 6720 ([facility]) (test code = [place] 1538) [address] HIV-1 ANTIGEN WITH HIV-1/2 [id number] 11:58:00 Test Item Value Reference Range Interpretation Comments HIV-1 ANTIGEN WITH HIV 1\\T\\2 Nonreactive Nonreactive ANTIBODY (2) ([facility]) (test code = 2586) TROPONIN [id number] 09:44:00 Test Item Value Reference Range Interpretation Comments TROPONIN I ([facility]) (test code = 0.34 ng/mL 0.00-0.03 HH [...] Previous: 0.0-4.9CK-MB Reference Range:<6.7 Normal6.7-10.0 Borderline>10.0 AbnormalACETAMINOPHEN [id number] 08:31:00 Test Item Value Reference Range Interpretation Comments ACETAMINOPHEN LEVEL (BEAKER) (test < ug/mL 10.0-30.0 L code = 344) TROPONIN [id number] 05:53:00 Test Item Value Reference Range Interpretation [...] acute neurological disease, and persistent tachyarrhythmia.BASIC METABOLIC [id number] 05:53:00 Test Item Value Reference Range Interpretation [...] TO CALCULA TE ESTIMATED GFR. Specimen slightly nvdstdhYUTUXPGSXA3629-65-73 05:52:00 Test Item Value Reference Range Interpretation Comments PHOSPHORUS (BEAKER) (test code = 5.7 mg/dL 2.3-4.7 H 604) HEPATIC FUNCTION [id number] 05:52:00 Test Item Value Reference Range Interpretation [...] Specimen slightly ictericCREATINE KINASE (CK), TOTAL AND [id number] 05:52:00 Test Item Value Reference Range Interpretation Comments CREATINE KINASE TOTAL (BEAKER) 341 U/L 29-200 H (test code = 380) CREATINE KINASE-MB (BEAKER) (test 5.4 ng/mL 0.0-6.6 code = 750) CREATINE KINASE-MB INDEX (BEAKER) 1.6 % (test code = 395) Effective 05/08/2014: CK-MB Reference Range ChangeNew: 0.0-6.6 Previous: 0.0-4.9CK-MB Reference Range:<6.7 Normal6.7-10.0 Borderline>10.0 AbnormalCBC W/PLT COUNT & AUTO [id number] 05:48:00 Test Item Value Reference Range Interpretation [...] K/ L 0.00-0.20 (test code = 417) 0.13LDBOPUUJQI0695-57-65 05:09:00 Test Item Value Reference Range Interpretation Comments FIBRINOGEN LEVEL (BEAKER) (test 427 mg/dl 225-434 code = 658) [id number] 05:09:00 Test Item Value Reference Range Interpretation Comments PARTIAL THROMBOPLASTIN TIME 36.2 seconds 22.5-36.0 H (BEAKER) (test code = 760) PROTHROMBIN TIME/[id number] 05:08:00 Test Item Value Reference Range Interpretation Comments PROTIME (BEAKER) (test code = 22.8 seconds 11.7-14.7 H 759) INR (BEAKER) (test code = 370) 2.0 <=5.9 RECOMMENDED COUMADIN/WARFARIN INR THERAPY RANGESSTANDARD DOSE: 2.0 - 3.0 Includes: PROPHYLAXIS forvenous thrombosis, systemic embolization; TREATMENT for venous thrombosis and/or pulmonary embolus.HIGH RISK: Target INR is 2.5-3.5 for patients with mechanical heart valves.HEPATITIS PANEL, [id number] 03:40:00 Test Item Value Reference Range Interpretation Comments HEPATITIS A IGM ANTIBODY (BEAKER) Nonreactive Nonreactive (test code = 498) HEPATITIS B CORE IGM ANTIBODY Nonreactive Nonreactive (BEAKER) (test code = 645) HEPATITIS C ANTIBODY (BEAKER) Nonreactive Nonreactive (test code = 367) HEPATITIS B SURFACE ANTIGEN (2) Nonreactive Nonreactive (BEAKER) (test code = 2585) CREATININE, RANDOM [id number] 03:18:00 Test Item Value Reference Range Interpretation Comments CREATININE URINE (BEAKER) (test 118.7 mg/dL code = 375) Reference Range: No NormalsSODIUM, RANDOM [id number] 03:18:00 Test Item Value Reference Range Interpretation Comments SODIUM URINE (BEAKER) (test code = 60 meq/L 243) Reference Range: No NormalsUREA NITROGEN, RANDOM [id number] 03:18:00 Test Item Value Reference Range Interpretation Comments UREA NITROGEN URINE (BEAKER) (test 303 mg/dL code = 538) Reference Range: No [id number] 03:07:00 Test Item Value Reference Range Interpretation Comments AMMONIA (BEAKER) (test code = 348) 48 mol/L 18-72 [id number] 02:57:00 Test Item Value Reference Range Interpretation [...] within 95-100% range. URINALYSIS W/ REFLEX URINE [id number] 02:53:00 Test Item Value Reference Range Interpretation [...] = 514) SOURCE(BEAKER) (test code = 2795) [id number] 02:49:00 Test Item Value Reference Range Interpretation Comments PARTIAL THROMBOPLASTIN TIME 39.4 seconds 22.5-36.0 H (BEAKER) (test code = 760) PROTHROMBIN TIME/[id number] 02:48:00 Test Item Value Reference Range Interpretation Comments PROTIME (BEAKER) (test code = 22.0 seconds 11.7-14.7 H 759) INR (BEAKER) (test code = 370) 1.9 <=5.9 RECOMMENDED COUMADIN/WARFARIN INR THERAPY RANGESSTANDARD DOSE: 2.0 - 3.0 Includes: PROPHYLAXIS forvenous thrombosis, systemic embolization; TREATMENT for venous thrombosis and/or pulmonary embolus.HIGH RISK: Target INR is 2.5-3.5 for patients with mechanical heart valves.[id number] 02:48:00 Test Item Value Reference Range Interpretation Comments FIBRINOGEN LEVEL (BEAKER) (test 421 mg/dl 225-434 code = 658) BLOOD GAS, [id number] 02:43:00 Test Item Value Reference Range Interpretation [...] 21.0 % CBC W/PLT COUNT & AUTO [id number] 02:43:00 Test Item Value Reference Range Interpretation [...] code = 417) 0.00LACTIC ACID, VENOUS, WHOLE [id number] 02:35:00 Test Item Value Reference Range Interpretation Comments LACTATE BLOOD VENOUS (2) (BEAKER) 0.8 mmol/L 0.5-2.2 (test code = 2872) Effective 10/23/2015: Units/Reference Range ChangeNew: 0.5-2.2 mmol/L Previous: 5-20 mg/dLSpecimen slightly sbvjaskTWMWKHWEKAUV7685-21-81 11:32:0014.6[facility] VrmkbwrUOMZCNEZGPJC1455-46-06 11:32:0033[facility] LmpbmenMDVRIAWOFBGR6179-41-38 11:32:008.3[facility] HfohdxqJXIOMRBOMPBT1651-11-91 11:32:0081[facility] FGIRYGBGIGCX5566-28-64 11:32:001.95[facility] FvyjiwvATLZALPABMOV3655-53-88 11:32:0055[facility] QotnqiaJPVEMJDJLJVD4722-49-97 11:32:0019[facility] KYTXIOHDBTHL6545-72-12 11:32:30011Vnpwkwaw FfjmzgoFIDLNIQTHCGZ8080-52-59 11:32:79657Mrplgzpi RiwyimpQXWDZGZEKFFY8408-68-48 11:32:004.6[facility] QRYTHNMPMG2938-11-44 11:32:0030.4[facility] OciqdogGQGNTGYWJT1640-89-44 11:32:00 4.5[facility] ZxvhbybXFWDFBFPFX0552-88-32 11:32:0013.7[facility] HermannHEMATOLOGY 2016-07-30 11:32:002.6[facility] VsgtmdrZCDBDDTJIZ2056-02-94 11:32:000.7[facility] IwffoxgPILRXAOIEO9356-83-24 11:32:000.7[facility] KaexjlvCDIQMJUSTS3619-21-03 11:32:001.emorial UgdfcqhKOYWFZQSJO7978-39-21 11:32:000.2[facility] ZSCBBPENNA9889-99-36 11:32:0050.7[facility] FjrwvlwSACDJIOMER8983-94-44 11:32:00 28.1[facility] HksmqmcWBYDFUQTQT0874-95-70 11:32:003.39[facility] HermannHEMATOLOGY 2016-07-30 11:32:008.9[facility] IthvjmoZLPWGDUVVP0939-75-71 11:32:005.1[facility] BevvkrqIDDWVWQMOZ7234-90-63 11:32:0011.3[facility] JlmbkimZBBMJFTGXY0459-80-74 11:32:11817Ifjroaqp KifwksvSCUSBLXEDO4408-82-32 11:32:0031.8[facility] KSSTLNFBBD0716-06-99 11:32:0018.0[facility] XuppouhDWAXYOFLZK7415-60-94 11:32:00 83.0[facility] OhxvfmeCQCZQCNFOX9663-88-62 11:32:00 Test Item Value Reference Range Interpretation Comments MCH (test code = MCH) 26.4 pg 27.0-31.0 [facility] PezhebrDOSTKQBRTK2469-59-00 11:32:68981Sdzehekd HermannIMMUNOLOGY 2016-07-30 11:32:00Negative *NA*(07/30/16 5:32 AM)[facility] HermannIMMUNOLOGY 2016-07-29 11:05:00Negative *NA*(07/29/16 5:05 AM)[facility] HermannIMMUNOLOGY 2016-07-29 11:05:0092[facility] HermannCHEM YKDFN1110-66-29 15:50:0025[facility] HermannCHEM YBBQS5198-05-00 15:50:0055[facility] HermannCHEM DOGQE3562-93-96 15:50:0023[facility] HermannCHEM ATEAS0306-47-10 15:50:13726Cdpzljaf HermannCHEM OTQAL5046-60-12 15:50:49469Unnwibfu HermannCHEM JUFNQ4038-39-59 15:50:004.0 [facility]annCHEM HDYJU0974-06-29 15:50:95650Fylneyjv HermannCHEM PANEL 2016-07-28 15:50:0013.0[facility] HermannCHEM STVFZ0321-67-72 15:50:007.7[facility] HermannCHEM SKFFD6127-71-14 15:50:002.49[facility] VjgvcjlTMLQXDAMVD4739-02-52 15:50:00 Test Item Value Reference Range Interpretation Comments PT (test code = PT) 14.8 s 12.0-14.7 [facility] QxnhenmBEEBBNGPPE0318-88-06 15:50:00 Test Item Value Reference Range Interpretation Comments PTT (test code = PTT) 40.8 s 22.9-35.8 [facility] ThkcmwlLLCHSQGQVT9951-59-23 15:50:001.14[facility] HermannIMMUNOLOGY 2016-07-28 15:50:0094[facility] VvsebhlCEBVJTQSLC0650-69-26 10:35:001.7[facility] RijfxqcOYRGFOWWAX5351-62-20 10:35:002.7[facility] PvpjkjeSGHIJLSPXH8684-00-13 10:35:000.1[facility] QohpgdjHECQPFXMBH5190-47-02 10:35:000.7[facility] YMXKVZEDTK4106-87-24 10:35:0051.3[facility] FytfailJNBYFOPGSZ3817-64-40 10:35:00 31.6[facility] XkxnefoYMEDGXJYTE4007-43-26 10:35:0014.1[facility] HermannHEMATOLOGY 2016-07-28 10:35:002.6[facility] FjwndqnJUOPURNSOT3909-75-19 10:35:000.4[facility] AodlzozMFCEVIQJUU3618-68-74 10:35:0029.3[facility] YjxvixpKQHAXKFOKG6399-77-11 10:35:009.2[facility] YnbguhzXQGZXUARZP7753-89-48 10:35:003.54[facility] LDCHFDTOHT3173-19-77 10:35:005.3[facility] QxbxltoPTFUDTTIHO9180-16-82 10:35:0087 [facility] FpjlhnsIGCCOGCCTS6966-65-58 10:35:0031.4[facility] HermannHEMATOLOGY 2016-07-28 10:35:0017.9[facility] SpygedmSSTXSPMMSE2917-95-02 10:35:0010.9[facility] SekuwkpBMTEZSVBGN4583-49-60 10:35:00 Test Item Value Reference Range Interpretation Comments MCH (test code = MCH) 26.0 pg 27.0-31.0 [facility] RegvqjhHJLITBJYAJ4186-19-26 10:35:0082.8[facility] HermannIMMUNOLOGY 2016-07-28 10:35:00Negative *NA*(07/28/16 4:35 AM)[facility] HermannCARDIAC ENZYMES 2016-07-27 10:22:21703Ogoptrhh HermannCHEM ZQXBM8296-15-21 10:22:007.8[facility] HermannCHEM NOORK8269-76-45 10:22:0021[facility] HermannCHEM LJGYN1451-56-29 10:22:99390Tyiwkanz HermannCHEM DOXQY8542-20-03 10:22:003.8[facility] HermannCHEM CXIXA5780-11-20 10:22:55494Goqwnznh HermannCHEM FYJKD9937-41-96 10:22:000.4 [facility]annCHEM RYNKG1199-72-43 10:22:0074[facility] HermannCHEM PANEL 2016-07-27 10:22:0019[facility] HermannCHEM VJKDZ1242-32-39 10:22:005.2[facility] HermannCHEM UVSLW7435-40-92 10:22:21115Czqcdhxq HermannCHEM OTDOA5864-41-95 10:22:35885Izdbigwm HermannCHEM MLFXU2497-59-21 10:22:001.8[facility] HermannCHEM KGRVQ1393-49-87 10:22:0054[facility] HermannCHEM DRXAJ5813-81-19 10:22:32221 [facility] HermannCHEM JHXZE4555-56-65 10:22:003.11[facility] HermannCHEM PANEL 2016-07-27 10:22:0017[facility] HermannCHEM PRHSN8978-13-21 10:22:0016.8[facility] HermannCHEM INKJP5905-31-20 10:22:003.4[facility] HermannCHEM CGJCN2876-07-65 10:22:000.5[facility] HermannCHEM VZXYN9814-59-86 10:22:002.0[facility] HermannCHEM LPZWP9924-29-12 10:22:003.7[facility] XblipdmZZAVGFSBXJ2763-17-65 10:22:0017.7 [facility] CvpgvvdVYQHRQEOSE2403-54-44 10:22:0032.9[facility] HermannHEMATOLOGY 2016-07-27 10:22:0025.4[facility] RnlcgjuAPTTACUNYS9902-72-22 10:22:00 Test Item Value Reference Range Interpretation Comments MCH (test code = MCH) 26.4 pg 27.0-31.0 [facility] PnlbuvmEXUDDIAOWS8148-36-28 10:22:0080.3[facility] HermannHEMATOLOGY 2016-07-27 10:22:0011.4[facility] XhiqedpYYMWDCNGJK2437-14-71 10:22:0074[facility] GapgimhHRSUNTJEZJ1848-31-05 10:22:003.16[facility] PsqjbutSIUMUTYAIT6055-73-57 10:22:005.3[facility] PjmhjquQQBGYVIJHA2315-18-39 10:22:008.4[facility] DLROLAGINE8788-92-34 10:22:0014.5[facility] BhvcuwhZAVSJDIFRH5670-77-92 10:22:00 29.8[facility] RnfhjmsKJEIUEEBSE2889-39-81 10:22:000.1[facility] HermannHEMATOLOGY 2016-07-27 10:22:000.8[facility] EobswceRRHMRONZCM8131-05-11 10:22:002.9[facility] IgymwapXILTOTVLLO5153-95-80 10:22:001.6[facility] WcsmfvzZTNBGGTBZQ6118-60-20 10:22:000.4[facility] CrjgffdLOORMDFDOF8016-81-41 10:22:001.2[facility] AHBTENTYBN9789-47-72 10:22:0054.1[facility] HermannSPECIAL HOTCZYXLY5216-28-65 10:22:008.9[facility] HermannCARDIAC PYCWRIC8551-31-70 17:40:35906Wxxjbccd [facility] FQXKBFSAOV5299-22-78 17:40:00Positive *ABN*(07/26/16 11:40 AM)[facility] WQPOEPLPBQ0908-04-04 17:40:00<0.2[facility] UedqevuKQIUMEYEJW1893-86-08 17:40:00<0.2[facility] ZmfkvwxGYENVUMTUT0935-67-20 17:40:00<0.2[facility] GrvmfftGPOVMUSGND0307-65-83 17:40:00<0.2[facility] AuqjxptOILDTKZAVT2704-29-10 17:40:00Negative (07/26/16 11:40 AM)[facility] JsjgmvkRSXBGBXJZD0088-61-86 17:40:00 1:40 *ABN*(07/26/16 11:40 AM)[facility] HermannURINE USPP8251-96-56 17:40:0021 [facility] VllprsvFXHOJLTCHP5368-53-21 14:00:001.11[facility] HermannHEMATOLOGY 2016-07-26 14:00:00 Test Item Value Reference Range Interpretation Comments PT (test code = PT) 14.5 s 12.0-14.7 [facility] WonksavUINBWKQNAC6913-35-89 14:00:00Negative *NA*(07/26/16 8:00 AM) [facility] RrvaybaKLLUAWSDKO4562-73-17 14:00:00Negative *NA*(07/26/16 8:00 AM) [facility] RflpvrzBTYULHXYMM5636-50-65 14:00:00Negative *NA*(07/26/16 8:00 AM) [facility] EvigdemVSBIMXRWIJ2112-59-15 14:00:00Negative *NA*(07/26/16 8:00 AM) [facility] HermannCHEM GKJKY8221-64-81 10:42:0017[facility] HermannCHEM PANEL 2016-07-26 10:42:723099Bpwtotsx HermannCHEM SYZFO3060-76-32 10:42:000.5[facility] HermannCHEM AIVZT6845-81-12 10:42:000.3[facility] HermannCHEM XFQHY0333-97-31 10:42:0079[facility] HermannCHEM OHFKJ8302-45-22 10:42:49652Ljwsrght HermannCHEM BIINI2712-66-55 10:42:005.5[facility] HermannCHEM CSMRZ4417-05-95 10:42:003.7 [facility] HermannCHEM CENQQ3798-28-47 10:42:001.8[facility] HermannCHEM PANEL 2016-07-26 10:42:002.1[facility] ObsjixlWJINVHWMHP8697-71-95 10:42:00Present *ABN*(07/26/16 4:42 AM)[facility] NqlkbfxEPKDBSJOJK1185-07-11 10:42:001+ *ABN*(07/26/16 4:42 AM)[facility] EmmwncuOEEQOEAIQP9747-91-55 10:42:000.1[facility] UfnthudIPBAQODFXB3788-27-12 10:42:00Moderate *ABN*(07/26/16 4:42 AM)[facility] HasdiquDPOKDFQDJA9554-64-86 10:42:0042[facility] PFEVV2356-14-05 16:34:001[facility] COLDZ6737-22-42 16:34:004[facility]INE AND QGZHH0944-59-61 16:34:00Negative (07/25/16 10:34 AM)[facility] AND GKKES5604-62-79 16:34:00Negative (07/25/16 10:34 AM)[facility] AND BRAWO6681-01-20 16:34:002[facility] OXZCS8322-66-30 16:34:006[facility] GOBFB6931-81-67 16:34:002.0[facility]INE AND IYGLS6317-39-77 16:34:00Negative (07/25/16 10:34 AM)[facility] AND YUQPS8780-50-23 16:34:00Negative *NA*(07/25/16 10:34 AM)[facility] AND ACWLN2462-81-25 16:34:001.012[facility] JVIRN3237-19-51 16:34:005.5[facility] GLRRN2273-50-78 16:34:00Slight *ABN*(07/25/16 10:34 AM)[facility] SCWYY4830-61-35 16:34:00Dark Yellow *NA*(07/25/16 10:34 AM)[facility] FYWAK9778-44-40 16:34:009 [facility] ZVCN7908-90-22 16:34:0030[facility] CHEM 2016-07-25 16:34:003.1[facility] HNQK8663-27-84 16:34:27571.9[facility] WTNF9110-58-44 16:34:57565.00[facility]annCHEM PNALW2820-21-11 08:55:002.0[facility]annCHEM QCEHH7540-40-18 08:55:005.2[facility] CARDIAC NSMQNWQ4527-95-67 17:29:000.28[facility]annCARDIAC LCSTERB6543-83-20 17:29:322989Sqeyvrwa HermannCARDIAC ZERUDZP9425-09-32 17:29:000.144[facility]annCARDIAC IARALVB0514-86-87 17:29:000.2[facility]annCARDIAC ENZYMES 2016-07-24 17:29:006.3[facility]annC[facility]AC IZUNICC7964-22-51 11:20:000.38 [facility] WCDFZJX6442-25-53 11:20:000.173[facility]annCARDIAC BMTTGVA6668-54-97 11:20:000.2[facility]annCARDIAC ZABIDCQ9161-25-01 11:20:00 5.6[facility]annCHEM YNCFP8367-72-45 11:20:005.5[facility]annCARDIAC BEPBWQV4202-37-08 06:18:88954Kxyllwea HermannCARDIAC RABMYXZ6110-64-84 04:59:27 0.57[facility]annCARDIAC KRGNMVM9616-15-23 10:22:73812Pdhbjozn HermannCHEM ASMXL2533-09-23 10:22:002.1[facility]annCHEM XAPFU2621-46-50 10:22:12522 [facility]annCHEM RHPET5605-36-84 10:22:0041[facility]annCHEM PANEL 2016-06-15 10:22:002.00[facility]annCHEM OKYKY8021-73-55 10:22:009.0[facility]annCHEM DSBFF8099-14-89 10:22:56061Mazplmdo HermannCHEM HUAXB2790-80-48 10:22:0033[facility]annCHEM SWCFJ7075-86-82 10:22:24596Bxbpjupm HermannCHEM LLFHE6795-12-08 10:22:004.0[facility]annCHEM LGGRM2260-63-21 10:22:0032 [facility]annCHEM CPRBL9644-35-37 10:22:0013.0[facility] HermannCHEM PANEL 2016-06-15 10:22:004.6[facility] YtuutncUTDOTUGMZP9665-52-57 10:22:003.68[facility] NgolqjqRYXCNRTOFI7011-74-45 10:22:009.9[facility] YevcaxdBPAWSGPIEC3544-69-75 10:22:00 Test Item Value Reference Range Interpretation Comments MCH (test code = MCH) 26.8 pg 27.0-31.0 [facility] YzwsiepKOCGKGVIOE4293-41-12 10:22:0034.2[facility] HermannHEMATOLOGY 2016-06-15 10:22:0078.3[facility] NskdzsvCRTWCECEXW2491-56-67 10:22:0028.8[facility] RqawfvbBWFPEPUPZN7232-11-84 10:22:14486Pmqlxvbc YgyobwmVYLMLOGNAK3749-20-04 10:22:009.5[facility] NvkptdhTFZMXENQYL4694-32-55 10:22:0015.3[facility] FDVTAOHHUW6524-17-19 10:22:005.6[facility] OkcogcxBWMTHHLDEW2392-41-52 10:22:000.5 [facility] PncsgsuWHSVNYFVZO5304-80-51 10:22:001+ *ABN*(06/15/16 4:22 AM)[facility] AplkclbQPOTSIXSAE3595-25-86 10:22:000.1[facility] DrnsmlvNTFMCHHSNH3266-60-89 10:22:0033.5[facility] IzuarauQINAXSWZFD9327-86-21 10:22:0047.6[facility] MVLRJRKMMQ8784-17-44 10:22:008.4[facility] MqbyvreLASLFQQBTG0972-25-26 10:22:009.4 [facility] YpbygkxHRLONDAVVC8203-26-16 10:22:002.6[facility] HermannHEMATOLOGY 2016-06-15 10:22:001.9[facility] UnnkfmoPMMRQMMIQM3432-56-29 10:22:001.1[facility] IbdxjokTHDPIYGXJU7712-15-71 10:22:000.5[facility] HermannCHEM TCYZK1797-16-14 11:03:004.8[facility]annCHEM JHTWI4505-75-12 11:03:002.0[facility]annCHEM XLKKT7204-72-03 11:03:0032[facility]annCHEM UHJMG8460-57-79 11:03:11018 [facility]annCHEM CDQHU7485-76-75 11:03:004.4[facility]annCHEM PANEL 2016-06-14 11:03:0037[facility]annCHEM RTJZH7592-38-78 11:03:94899Dlpwqxrr HermannCHEM VBWWG9574-09-87 11:03:002.00[facility]annCHEM LUVTJ9718-49-01 11:03:39140Olhisamw HermannCHEM KWFIT3311-29-95 11:03:008.7[facility]annCHEM TMGCO7434-74-75 11:03:0032[facility]annCHEM FLIKN4228-33-96 11:03:0013.4 [facility] OpyfmkkDJTMESADHL9562-59-73 11:03:0010.3[facility] HermannHEMATOLOGY 2016-06-14 11:03:000.1[facility] PblipzoQNUCVTTCSC9045-16-80 11:03:000.5[facility] QspxeneUUWWDCZRKH2497-03-19 11:03:000.5[facility] BcjbymuFIEFDUKPCK5843-76-77 11:03:002.1[facility] CnypcruUFOEKARTZZ6293-15-94 11:03:001.2[facility] Vin SPEBZJKTCW7527-36-59 11:03:001.9[facility] RvldgfmYSPXNKOGMC3687-70-95 11:03:00 42.5[facility] OcjnpoyHRRJSSHYGI7830-00-60 11:03:0037.0[facility] HermannHEMATOLOGY 2016-06-14 11:03:009.0[facility] DzeumhzOMXHXACAEL6314-70-67 11:03:009.8[facility] QltsttmXYYKYCJXOO8433-82-65 11:03:005.0[facility] OrzsyodSLBPTPMJRD7688-55-33 11:03:003.57[facility] SdavhkbKKQJMSURCT6880-23-48 11:03:009.4[facility] CHLXUWXTIJ3161-34-58 11:03:0028.5[facility] XbpkdsaTVEYINALPN1924-13-58 11:03:00 183[facility] SctmuwfEOHTWKLKOI7790-66-49 11:03:0079.9[facility] HermannHEMATOLOGY 2016-06-14 11:03:00 Test Item Value Reference Range Interpretation Comments MCH (test code = MCH) 26.3 pg 27.0-31.0 [facility] DjuindfJMUUHHAWAK9119-24-29 11:03:0033.0[facility] HermannHEMATOLOGY 2016-06-14 11:03:0015.9[facility]annURINE WGIA4502-76-78 10:26:006.9[facility]annURINE UBMM3987-64-94 10:26:0019.30[facility]annURINE SPJU8326-34-17 10:26:53079.1[facility] GfnduzaZFZZRFPNDJ4064-60-19 09:20:009.7[facility] JZOCYFSQHN6737-39-98 09:20:05897Wrjforpi VjmzzstEJZLLNCXPS9714-20-59 09:20:00 15.9[facility] ThwdtnkKZVIGKXUPE5934-67-17 09:20:0079.3[facility] HermannHEMATOLOGY 2016-06-13 09:20:0033.0[facility] IcmquzrRCDPWEZLAP5400-16-94 09:20:00 Test Item Value Reference Range Interpretation Comments MCH (test code = MCH) 26.2 pg 27.0-31.0 [facility] HknqxbfHCSCSETFDT4790-48-56 09:20:0029.4[facility] HermannHEMATOLOGY 2016-06-13 09:20:009.7[facility] YoedjmiRCRBSFICIG5703-57-80 09:20:003.70[facility] AppeuhjSSYCNWIEYS1931-06-80 09:20:005.7[facility] JotbjxhCITEUVIFMG6065-01-34 09:20:000.1[facility] NxipabaDASSMDPQKR3531-01-41 09:20:002.2[facility] ZFVHKODYGK3459-71-40 09:20:000.5[facility] ZmeqnzzIIHUPDRIQV4234-30-27 09:20:000.5 [facility] VhtpqxkTTPWXDQRCG5214-61-76 09:20:001.1[facility] HermannHEMATOLOGY 2016-06-13 09:20:002.3[facility] BdylewlTHBKBVUPVQ9745-62-46 09:20:009.5[facility] BebguehKPRTLKBGIO9351-96-14 09:20:009.0[facility] YsmqedtSHLWXGTWEH0095-15-16 09:20:0038.9[facility] SurxoomZYBKGPKGMU6806-73-31 09:20:0041.5[facility] CHEM MKEAB2866-31-54 06:34:001.7[facility] HermannCHEM WFWWB4175-22-13 06:34:004.2 [facility] KfxnjdaJSDTVSMPXGME7439-16-36 06:34:0014.3[facility] HermannELECTROLYTES 2016-06-13 06:34:0041[facility] ZmhtbwiWLADWODAKFZL9042-32-38 06:34:35727Mmcmbzvi IxcbinxLXHBLKHFOUMN9215-46-45 06:34:008.5[facility] AihqmkmGPWFATFZJQFX0236-27-07 06:34:0032[facility] CyjadzpOJFIEJBKWQSP9549-76-95 06:34:76858Kpvbktlo Vin QPFRBCIJWPYH9494-56-64 06:34:0037[facility] JhgxsclRUYGXXUFOUPU6031-23-73 06:34:00 1.63[facility] HwuxxaoGGMMZNBHFFBR8249-27-04 06:34:004.3[facility] ORJLKVFFMQLP0162-52-38 06:34:67349Eojllexb HermannCHEM LCGPU5667-77-24 16:21:00 48.0[facility] HfaxaopFLAMHDFWFK8991-63-98 14:56:001:40 *ABN*(06/11/16 8:56 AM) [facility] HuwlryqSOQFULYWSI7802-71-10 14:56:00Negative *NA*(06/11/16 8:56 AM) [facility] RmfsbkzIOIOGIWXEN3737-63-20 14:56:00Negative *NA*(06/11/16 8:56 AM) [facility] NrmcgmnVDDGMEBZGP4756-79-99 14:56:00Negative *NA*(06/11/16 8:56 AM) [facility] YdmeokrZJQXWMUUHT0873-46-02 14:56:00Negative *NA*(06/11/16 8:56 AM) [facility] WkmmlovCZCUJBRBUM2786-84-21 14:56:00Negative *NA*(06/11/16 8:56 AM) [facility] FmyazneQLHKPVJZTR9402-19-94 14:56:00Positive *ABN*(06/11/16 8:56 AM) [facility]annCHEM OVIWV1538-36-82 10:42:000.1[facility] HermannCHEM PANEL 2016-06-11 10:42:005.2[facility] HermannCHEM OWIXO9323-40-95 10:42:001.6[facility]annCHEM PJMFF6587-91-24 10:42:0020[facility]annCHEM SJAIW5489-23-08 10:42:003.6[facility]annCHEM IVKYC8924-53-15 10:42:000.4[facility]annCHEM OYZZE3293-10-28 10:42:0074[facility]annCHEM LSTCI3325-40-83 10:42:0014 [facility]annCHEM GNWUM9163-93-46 10:42:0013[facility] HermannHEMATOLOGY 2016-06-11 10:42:001.06[facility] EmsvmooNFSTYKLITO5849-74-78 10:42:00 Test Item Value Reference Range Interpretation Comments PT (test code = PT) 14.0 s 12.0-14.7 [facility] RbqusahEBWFTNBWZH4641-16-20 10:42:00 Test Item Value Reference Range Interpretation Comments PTT (test code = PTT) 36.4 s 22.9-35.8 [facility]annSPECIAL CCTRKUUHO8681-17-49 10:42:0010.5[facility] HermannCARDIAC MGACUAB3428-51-80 02:08:001.8[facility] HermannCARDIAC JOSPPSH4351-98-07 02:08:00 2.9[facility] HermannCARDIAC JISUCRM5399-34-41 02:08:000.061[facility] CARDIAC ITZFBCO8182-54-15 02:08:40979Sgezuviv HermannCARDIAC DIKTJQW0381-04-61 02:08:00<0.02[facility] HermannCHEM PBZUM6363-74-94 02:08:000.2[facility] CHEM JZBHY1146-97-68 02:08:000.1[facility]annCHEM VLHHX3397-26-49 02:08:000.1 [facility]annCHEM HDSDA4684-49-56 02:08:005.7[facility] HermannCHEM PANEL 2016-06-11 02:08:000.5[facility] HermannCHEM RMADO5736-06-64 02:08:001.8[facility]annCHEM NCKYE4560-15-09 02:08:003.9[facility]annCHEM NRCDJ5942-51-36 02:08:0099[facility]annCHEM QJRIG8972-34-95 02:08:0021[facility]annCHEM CUDUC4617-74-48 02:08:0017[facility] HermannDRUG YUQWYF9204-27-48 02:08:00See Note *NA*(06/10/16 8:08 PM)[facility]annDRUG LDJEZP5735-83-91 02:08:00Negative *NA*(06/10/16 8:08 PM)[facility]annDRUG ISVWCI6519-80-89 02:08:00Negative *NA*(06/10/16 8:08 PM)[facility]annDR[facility] AVPGTJ1513-21-82 02:08:00Negative *NA*(06/10/16 8:08 PM)[facility]annDRUG KYIEVF8819-73-82 02:08:00Negative *NA*(06/10/16 8:08 PM)[facility]annDRUG AWCYRZ9822-90-45 02:08:00Negative *NA*(06/10/16 8:08 PM)[facility] HermannDRUG UOMSON1881-22-11 02:08:00Negative *NA*(06/10/16 8:08 PM)[facility]annDRUG CLHGVX6328-24-68 02:08:00Negative *NA*(06/10/16 8:08 PM)[facility]annDRUG AIRVKI7058-78-30 02:08:00Negative *NA*(06/10/16 8:08 PM)[facility]annDRUG NAAZCM0528-94-66 02:08:00Negative *NA*(06/10/16 8:08 PM)[facility] XtgczjjYEGQYA6872-79-95 02:08:0075[facility] QbnuxwnJMWVYP1926-15-05 02:08:0027[facility] HhdiqhkEZYKMM3707-11-61 02:08:40898 [facility] JtauyycLXEJXG9019-66-25 02:08:70019Yaikyrjn NbfdyjfNCSXPL4893-68-13 02:08:004.29[facility] QpajcsdWXQVAN4117-38-73 02:08:0031[facility]annURINE AND DTYQX8368-83-93 02:08:006.0[facility]annURINE AND BSWZM8516-37-84 02:08:00 Negative (06/10/16 8:08 PM)[facility] AND FEPIK8736-63-41 02:08:00 Trace *ABN*(06/10/16 8:08 PM)[facility] AND BQIQN3055-90-31 02:08:00 Negative *NA*(06/10/16 8:08 PM)[facility]UR[facility] AND FLLCY5295-27-71 02:08:004[facility]UR[facility] AND KMTCH2901-92-16 02:08:005[facility] URINE AND UKCVD3616-65-77 02:08:00Small *ABN*(06/10/16 8:08 PM)[facility] URINE AND PDPYT9954-31-63 02:08:001[facility]UR[facility] AND DJUUC6214-81-83 02:08:001.009[facility]UR[facility] AND UTOET9547-46-55 02:08:00Yellow *NA*(06/10/16 8:08 PM)[facility] AND WECZT1166-84-70 02:08:00Clear (06/10/16 8:08 PM)[facility]INE VBBB9956-64-80 02:08:00Negative (06/10/16 8:08 PM)[facility] CTIQ4025-62-31 02:08:47183.4[facility]annURINE QTDB1907-23-78 02:08:005.4[facility]URINE NQPF2976-88-17 02:08:0069.80[facility] HermannCARDIAC GMZWMUM9767-20-30 16:53:783434Mkwskagb HermannCARDIAC RMNMBLJ9121-03-08 16:53:00<0.02[facility] HermannCHEM PANEL 2014-06-26 13:02:000.9[facility] GutsqqcFMSPBBBZIR1670-61-52 12:29:4410[facility] RgmpkrfGNEHQFGDUBZJG5947-65-31 11:21:271[facility]annCHEM EOBBP4483-51-55 11:21:0081[facility] FqprnzrKZSFYLCOKM0055-52-58 11:21:000.0[facility] HXMBVGRFBE6970-62-96 11:21:001+ *ABN*(06/26/14 5:21 AM)[facility] HermannHEMATOLOGY 2014-06-26 11:21:000.6[facility] VyuxjbwREUQRJGEOT7780-76-36 11:21:000.1[facility] YwhwnulXBDHZPODDR9431-45-03 11:21:002.5[facility] ThvgkwyFFGYOTRMBR5171-91-33 11:21:0063.3[facility] MikiewjOYZSKGKPCX5655-53-61 11:21:005.6[facility] RTTJPYNJQM3101-18-38 11:21:000.0[facility] DlvtbceESPGLCYWIX8255-66-36 11:21:000.9 [facility] PuzzfctHBFYEAXHYC4941-01-22 11:21:007.0[facility] HermannHEMATOLOGY 2014-06-26 11:21:0028.8[facility] LjxvqqgUFOJOEWCNL1488-74-78 11:21:008.8[facility] QbrbojcNHYDYUOFJH3284-84-44 11:21:005.19[facility] UtckewxYSECROLLID2630-71-52 11:21:0014.4[facility] YicstkbMMNLDKDDXL0781-58-38 11:21:0043.1[facility] IMYBLJFYVK6899-59-57 11:21:0083.1[facility] YmedfldWVHYZSWKEZ6089-08-77 11:21:00 Test Item Value Reference Range Interpretation Comments MCH (test code = MCH) 27.8 pg 27.0-31.0 [facility] HnxbcuzGPXKLPPBAZ4567-68-92 11:21:0013.1[facility] HermannHEMATOLOGY 2014-06-26 11:21:0033.5[facility] AyzduktASJIKYOKWM8996-22-78 11:21:14709Vlqmoczf UrlwxsuNDJJMJSHEZ4703-52-03 11:21:0010.4[facility] HermannCHEM LOREO5601-38-12 11:21:003.2[facility]annCHEM QYYSI3807-97-46 11:21:006.6[facility] HermannCHEM KSKGV6811-89-18 11:21:000.6[facility] HermannCHEM SAXXV5533-47-20 11:21:0059 [facility]annCHEM ZBUEB9477-52-54 11:21:0011[facility] HermannCHEM PANEL 2014-06-26 11:21:0017[facility] HermannCHEM RIYJB6022-92-40 11:21:0099[facility]annCHEM RSPYJ5871-76-07 11:21:49760Lgiaiibj HermannCHEM OKTFN1545-27-71 11:21:003.4[facility] HermannCHEM JIZYL5446-73-45 11:21:0011[facility]annCHEM YUURB1992-84-10 11:21:000.8[facility] HermannCHEM OSUIO8374-90-04 11:21:08152 [facility]annCHEM PJJUA6946-61-59 11:21:0094[facility] HermannCHEM PANEL 2014-06-26 11:21:009.1[facility] HermannCHEM FULXE1895-08-76 11:21:0024[facility] HermannCHEM OAJGZ7473-41-75 11:21:000.9[facility] HermannCHEM CTQTY9635-96-14 11:21:003.4[facility] HermannCHEM BZYAU9174-31-43 11:21:0014[facility] HermannCHEM FWLSM0503-04-13 11:21:0019.4[facility] ZurwbswRCICDDKWMP0308-06-93 04:48:55 Performed (04/14/2013 23:48:55)[facility] GastaaiCXVCHRNIZO1523-72-58 04:48:55 Negative *NA*(04/14/2013 23:48:55)[facility] TmyznnmOWQRMJZMHH6768-35-82 04:48:55 Trace *ABN*(04/14/2013 23:48:55)[facility] DydhzyvBZWETRTUHU4625-50-34 04:48:55 Negative (04/14/2013 23:48:55)[facility] LmwzimcOCBMFYZWUO7796-43-37 04:48:550.2 [facility] WycgpzfEHWDGQPWBE7226-91-43 04:48:55Negative (04/14/2013 23:48:55) [facility] HumnclaMIEJGAVOXM5715-28-84 04:48:55Negative (04/14/2013 23:48:55) [facility] WimcykaDLSDPWCOYH1718-01-07 04:48:55Clear (04/14/2013 23:48:55)[facility] AdllbbsYYZOEDFQSP5607-88-61 04:48:55Yellow *NA*(04/14/2013 23:48:55)[facility] PltjtubZSZKWPTOVN0690-79-90 04:48:55 Test Item Value Reference Range Interpretation Comments UA pH (test code = UA pH) 7.0 1 5.0-8.0 N [facility] NxtwfciRURHARPJKG7920-04-01 04:48:55 Test Item Value Reference Range Interpretation Comments UA Spec Grav (test code = UA Spec 1.025 1 N Grav) [facility] TzjkateQWZPATZUTJ2326-40-03 04:48:55Trace *ABN*(04/14/2013 23:48:55) [facility] TwscvffPJDZPTYBE7290-06-80 04:28:00Negative *NA*(04/14/2013 23:28:00) [facility] CujpdlkQHZYFYWKU3746-34-30 04:28:15471Hcpgjmxy HermannCHEMISTRY 2013-04-15 04:28:004.1[facility] BschwtiIXXFCMOJF2143-03-17 04:28:0010.5[facility] YpjnpzwOYCGZARQQ2334-40-28 04:28:006[facility] BecwpfyNOMKJLVHY9779-29-76 04:28:00 0.7[facility] AcxgzsbEICQEMAJF5717-81-15 04:28:18063Umbgvgtr HermannCHEMISTRY 2013-04-15 04:28:002.9[facility] UdgjywcXWFXLFOOA3336-58-22 04:28:0020[facility] AmnuhxvHRSNEEWAI4958-77-19 04:28:000.5[facility] OrvgdjbSRBNMOEON1532-22-57 04:28:0089[facility] AottlcaIADFAYHCX9890-30-84 04:28:0011[facility] ZTISTDWIS4378-29-73 04:28:000.5[facility] UfwfymbDJRCIZZOS3132-35-81 04:28:003 [facility] XtcaxdcIBGAOSTAM4187-92-95 04:28:64309Jakgmjtj HermannCHEMISTRY 2013-04-15 04:28:007.0[facility] OpxhdbdFGGGHZXJQ1679-28-71 04:28:008.7[facility] PpqawhuBMPVOGHVY4053-24-73 04:28:0029[facility] OxqrxpgHMHGWKOOQ8732-35-89 04:28:32083Hymaxhnw UjdmrpqVVVUOWVIG9531-02-73 04:28:003.5[facility] GRFJEMEMZ7209-09-76 04:28:57360Pwaheecj VgykkrjRKBWTBUJYB4401-83-50 04:28:00 Test Item Value Reference Range Interpretation Comments PROTIME (test code = PROTIME) 12.1 s 12.0-14.7 [facility]CSQEAOQH032[facility] 04:28:00 Test Item Value Reference Range Interpretation Comments aPTT (test code = aPTT) 39.0 s 22.9-35.8 H [facility] LramqrkCKCXQANLZF2349-35-54 04:28:000.90[facility] HermannHEMATOLOGY 2013-04-15 04:28:00 Test Item Value Reference Range Interpretation Comments MCH (test code = MCH) 29.4 pg 27.0-31.0 N [facility] EvptmoaVFGSBQBVTE3080-47-62 04:28:0086.1[facility] HermannHEMATOLOGY 2013-04-15 04:28:0029.4[facility] AuijxmkJQWJXYGLLT1553-85-56 04:28:0014.0[facility] IizqlegWBDXSAQNZX5661-48-64 04:28:006.2[facility] KijrrfsQJKPXROQHA5891-62-89 04:28:27847Xdguxzlc ZwlynlqCTAOCIZQDM0074-38-46 04:28:0034.1[facility] FANBBSORXJ3750-82-94 04:28:003.41[facility] CeqgzwlAIJKPJXRKL6003-17-86 04:28:00 10.0[facility] GmwffiyEUJQNNCUVC3047-63-26 04:28:0010.1[facility] HermannHEMATOLOGY 2013-04-15 04:28:004.4[facility] JgwzfejBMJAIVCWKZ2487-17-74 04:28:000.7[facility] PppzshwLLDHIUPXAU5198-59-08 04:28:0070.7[facility] OpgguolJKFXBIHLFU8247-68-90 04:28:000.3[facility] PnjrnulDZROKOZZIG2762-85-71 04:28:001.2[facility] UYVVUTMBQF3568-49-43 04:28:004.5[facility] UqqypawVKYWRDJDHO9161-48-30 04:28:004.1 [facility] YbxhbeuLJQLGRMKLH1790-80-42 04:28:0020.0[facility] HermannHEMATOLOGY 2013-04-15 04:28:000.0[facility] ZbehlxmEZYXYOGGIU6238-68-71 04:28:000.3[facility] HermannBEDSIDE GLUCOSE PPAVGTC0934-79-96 01:12:70536Qhqpzrze HermannURINALYSIS 2012-03-14 23:40:00Trace *ABN*(03/14/2012 18:40:00)[facility] HermannURINALYSIS 2012-03-14 23:40:00 Test Item Value Reference Range Interpretation Comments UA pH (test code = UA pH) 6.0 1 5.0-8.0 N [facility] MootdpeQYEQLBKASE6503-24-79 23:40:00>=80 mg/dL *NA*(03/14/2012 18:40:00)[facility] NugwhutYKYPIZWJRP6962-86-80 23:40:00>=1000 mg/dL *ABN*(03/14/2012 18:40:00)[facility] DnocacqULSBQDOFCD7980-40-20 23:40:00Negative (03/14/2012 18:40:00)[facility] GkcbbukIRTESMFIFP3807-37-89 23:40:00Negative (03/14/2012 18:40:00)[facility] ZupsohyLVZQHEAFOH9067-10-62 23:40:000.2[facility] JanwqwiHDTXVWABAQ5357-31-88 23:40:00Negative (03/14/2012 18:40:00)[facility] YwtnapbHKGARYBAQV4658-42-76 23:40:00Negative *NA*(03/14/2012 18:40:00)[facility] HafzgfjRDWTPXIYDA5567-72-34 23:40:00Clear (03/14/2012 18:40:00)[facility] OWEZVZDGXZ3866-21-70 23:40:00Yellow *NA*(03/14/2012 18:40:00)[facility] ODCEECOLUI2818-76-09 23:40:00>=1.030 *ABN*(03/14/2012 18:40:00)[facility] RdmhyysOAWEHMNJSP8471-09-03 23:40:00Occasional /LPF (03/14/2012 18:40:00) [facility] YyeozxxEJPMJSNLKH9316-63-19 23:40:003-5 /HPF (03/14/2012 18:40:00) [facility] OqwumjzLEHCZLAOVN4083-25-58 23:40:00Occasional /HPF (03/14/2012 18:40:00)[facility] LfejfiqVCEBBPQKE6481-12-81 22:50:00Negative *NA*(03/14/2012 17:50:00)[facility] QauolxdLEHOCPXZH6245-00-20 22:50:0045[facility] HermannCHEMISTRY 2012-03-14 22:50:001.2[facility] JtfnrriIYSSZEOTZ8937-41-94 22:50:003.8[facility] OaqemhbJXMWQUWJO0168-51-83 22:50:0021[facility] CbynbrgHBLYZPGHZ7325-11-47 22:50:0016.8[facility] OevfkufTMOIRGWIA3022-50-45 22:50:001.1[facility] MFKGPYLXH7217-03-08 22:50:008.2[facility] AobmuplPDWPHLGGW6685-71-84 22:50:003.8 [facility] JwdrvdtNZSBFXQRN9480-50-96 22:50:000.7[facility] HermannCHEMISTRY 2012-03-14 22:50:94679Smmeaqkp GsnwzxpVMBGCZFQX8558-96-15 22:50:0099[facility] VylajxmFXXNMQDIC7840-09-06 22:50:0027[facility] YjeivuzQSUZLBLPR3822-24-94 22:50:20051Ygncxjab JuwftfyVGFJNTBUO7709-65-56 22:50:0015[facility] VTAFFSANE4174-40-50 22:50:0024[facility] DmrgqyiRCMLYMQZG4737-33-70 22:50:0020 [facility] LmusezmLZABIVCSY3737-60-71 22:50:0067[facility] HermannCHEMISTRY 2012-03-14 22:50:004.4[facility] YoxapsiJJWUHRSJU7657-55-75 22:50:009.9[facility] IrmitqwYSBVXDKZYV9536-85-89 22:50:0011.8[facility] HqfrdriACAJIVQKXW5841-10-32 22:50:0035.9[facility] DkmyzkyDWBKMQSLGY2824-77-60 22:50:00 Test Item Value Reference Range Interpretation Comments MCH (test code = MCH) 31.2 pg 27.0-31.0 H [facility] VsorpsfJWMUDJTUBN8527-02-40 22:50:65324Yzgeyqvi HermannHEMATOLOGY 2012-03-14 22:50:0013.1[facility] AzzfefuXTAQPKTAFM2840-57-54 22:50:0040.7[facility] JwmxtrkZCACWZOBDK1973-55-31 22:50:0014.6[facility] XmsqvwjWVYSSVPZIQ8025-64-83 22:50:0087.0[facility] UjtzdvaIRIYJEZFDS3017-96-11 22:50:0011.7[facility] TBBGIZYPWF6306-79-86 22:50:004.68[facility] RqcnjxxMPIQPBOIUV4702-56-93 22:50:00 0.0[facility] AtaqwfqOYSDUTVSXI5351-39-76 22:50:000.2[facility] HermannHEMATOLOGY 2012-03-14 22:50:000.0[facility] SnuqdlvXFIQDEZUKX4638-66-61 22:50:000.4[facility] RmqbodkEBQGZVLRKG4743-86-27 22:50:0010.6[facility] JsysuvvPFBLZIRBBX1910-90-90 22:50:000.7[facility] VrxsudzPZIENVAOLV2048-22-80 22:50:003.4[facility] ORBPHDLJZF3269-99-24 22:50:00Normal (03/14/2012 17:50:00)[facility] FBNQAACSLQ4274-50-19 22:50:006.0[facility] CkicfmcMPDXVEHCCN7896-24-12 22:50:000.0 [facility] ZmenxtvMTWLNSFWXJ0167-36-68 22:50:0090.4[facility] HermannHEMATOLOGY 2012-03-14 22:50:00Normal (03/14/2012 17:50:00)[facility] HermannBEDSIDE GLUCOSE CQWLMPP4485-12-94 23:43:98421Ppjghook HermannBEDSIDE GLUCOSE CTTVSGV1717-28-11 17:40:18133Oqhngbkc HermannBEDSIDE GLUCOSE SRNPWDR4643-73-81 13:34:38446Fjwwaypz ImformcUOWESJCGA7418-92-94 00:00:00Negative (11/28/2011 19:00:00)[facility]ZyrdletEYNFITLEYM7225-51-78 00:00:00Performed (11/28/2011 19:00:00)[facility] CenterBqxugpoZNJITOPKLL5908-46-36 00:00:00Occasional /LPF (11/28/2011 19:00:00) [facility] CenterVgsarxcEVIQRDSLXI5456-89-84 00:00:00None Seen (11/28/2011 19:00:00) [facility] CenterVposjodOJUNEDVSRJ2987-51-93 00:00:00Negative mg/dL (11/28/2011 19:00:00)[facility] CenterHmldspcEWCWNBKCOQ8854-73-03 00:00:00 Test Item Value Reference Range Interpretation Comments UA pH (test code = UA pH) 7.0 1 5.0-8.0 N [facility] CenterUgkcjdmAUMXTLPKXX5010-65-70 00:00:00 Test Item Value Reference Range Interpretation Comments UA Spec Grav (test code = UA Spec 1.020 1 N Grav) [facility] CenterOspuewzXCKQUBOGFG8677-34-31 00:00:00Clear (11/28/2011 19:00:00)[facility] CenterVomikhmHEVTTHEGAU1559-28-64 00:00:00Yellow *NA*(11/28/2011 19:00:00)[facility] CenterXtgvpucZFNJTUVPSR9579-06-61 00:00:000.2[facility] OidcxmoKVGHCGMYFW7767-86-80 00:00:00Negative (11/28/2011 19:00:00)[facility] CenterCexwukfDBDFZKVPBI3212-73-05 00:00:00Negative *NA*(11/28/2011 19:00:00)[facility] CenterBvyaherYSQVKYAPUL7403-41-21 00:00:00>=80 mg/dL *ABN*(11/28/2011 19:00:00)[facility] CenterannURINALYSIS 2011-11-29 00:00:00>=1000 mg/dL *ABN*(11/28/2011 19:00:00)[facility] BASNTLQPRT9721-41-14 00:00:00Negative (11/28/2011 19:00:00)[facility] FWAFCKGCRG9718-88-39 00:00:00Negative (11/28/2011 19:00:00)[facility] ALYVADSMU6233-19-10 20:41:0060[facility] MfrmufmWAAIZGEFG3072-11-24 20:41:0041 [facility] UtkcjmzTMIJSIFZM0160-97-87 20:41:007.45[facility] HermannCHEMISTRY 2011-11-28 20:41:0037.0[facility] UmhcewqEDCBVWJVB5877-34-69 20:41:0092.0[facility] ZaakjqcCBAMSEWZV6961-93-03 20:41:004[facility] MtuzsiiAHSRWRYHM9993-22-14 20:41:00 28.5[facility] KilulhlOZNLEXRLI9711-39-36 20:00:001.6[facility] HermannCHEMISTRY 2011-11-28 20:00:08171Vujuutea WicoosdVSGELJNKT7754-09-45 20:00:004.2[facility] JidcfbuJTFIXBDWS7155-46-72 20:00:0023[facility] QyibrblYYLCXZWJR5684-66-37 20:00:0098[facility] NicifxoMGKMOSECH6379-01-33 20:00:003.8[facility] BEDYGNBGR2159-48-61 20:00:69495Ymbaumxk NbuocliWDVMZKCAF6937-21-51 20:00:000.7 [facility] YfzuygpPHRSBLVKN3701-03-48 20:00:009[facility] XelbxkjIHXKRQFTC1246-35-09 20:00:12103Fjdcdbkv WdxranwAUBJABFUX3338-74-36 20:00:0013[facility] ZHPDQEIWD5402-83-82 20:00:0020.8[facility] FzridwgLKXQKWECW9895-70-33 20:00:009.3 [facility] CplxizjNEMJLKRXR6457-52-68 20:00:006.7[facility]annCHEMISTRY 2011-11-28 20:00:001.7[facility] YvtjrfmILDATASBP4781-84-40 20:00:002.5[facility] PrcsrdzIJQHHNLVA7074-52-03 20:00:0018[facility] HhdzxsfEQITXOAQE1446-46-46 20:00:0062[facility] SywgptgANYQBJAEG5358-36-48 20:00:0032[facility] ATQWHMRUF2068-38-49 20:00:000.7[facility] NsurklkQLALLTIRJF1257-73-22 20:00:001+ *ABN*(11/28/2011 15:00:00)[facility] VgcwgdxBKTFJDAEMO6229-08-27 20:00:000.1 [facility] PhrgopmHECNDGWADX4266-89-78 20:00:000.0[facility]annHEMATOLOGY 2011-11-28 20:00:000.0[facility] YwehctoWQNYNKEXZD1820-01-85 20:00:00Slight *ABN*(11/28/2011 15:00:00)[facility] KkqcnhyFWZVLGISZJ8623-72-50 20:00:00Slight *ABN*(11/28/2011 15:00:00)[facility] WfgejaeOORVJFBCTR8865-99-52 20:00:005.7 [facility] RwlxfxqRKMDWLLOHQ2192-79-83 20:00:000.8[facility]annHEMATOLOGY 2011-11-28 20:00:000.2[facility] AfrfwxiNVDKJSODGB7226-78-70 20:00:000.0[facility] CbrfutuNKVYLLVVRY5441-12-30 20:00:001.9[facility] LjfqpgrBUSCMOPQBE2067-00-65 20:00:0086.2[facility] ZnhmuftGRPSPLRHGH4507-76-96 20:00:0011.7[facility] EUWVIXWXDP3102-27-06 20:00:0010.8[facility] DzazgtyFADULSANYX7839-48-97 20:00:00 161[facility] YojrbcuQXATDZLSHX5352-12-06 20:00:0035.6[facility]annHEMATOLOGY 2011-11-28 20:00:0012.4[facility] CeqomapRONZQPNFTP6832-36-23 20:00:00 Test Item Value Reference Range Interpretation Comments MCH (test code = MCH) 30.7 pg 27.0-31.0 N [facility] WkycarlJXNQBCZRPE1594-78-12 20:00:0086.1[facility]annHEMATOLOGY 2011-11-28 20:00:0033.6[facility] TqubtdaORJJPVJIVF8181-81-84 20:00:0012.0[facility] GdhmcoeXTWLEMBIVF2555-09-74 20:00:003.90[facility] BgmryukKBLIBMLNVH7291-09-58 20:00:006.6[facility] YcturhfFTCTCKXDB7740-59-34 19:51:00See Note 5*NA*(11/28/2011 14:51:00)[facility] CfkilhlHRJHYOWSY1155-19-41 19:51:00Negative *NA*(11/28/2011 14:51:00)[facility] KbajtheCJKHJOAPM9969-93-84 19:51:00Negative *NA*(11/28/2011 14:51:00)[facility] ZvujnpcNYVDSKYPR9189-25-68 19:51:00Negative *NA*(11/28/2011 14:51:00)[facility] FzyappwRYHOZQTAO9265-27-60 19:51:00Negative *NA*(11/28/2011 14:51:00)[facility] IbtgdpdWINLLNOZQ4435-83-10 19:51:00Negative *NA*(11/28/2011 14:51:00)[facility] YfzjaxeCBBCXBTML9946-36-27 19:51:00Negative *NA*(11/28/2011 14:51:00)[facility] KgpfvvhVHWMYEZPS1547-52-86 19:51:00Negative *NA*(11/28/2011 14:51:00)[facility] HermannBEDSIDE GLUCOSE QJCUQZY1148-51-19 16:20:73385Gzgnmtje ToixzopLQNEBYPYL7602-20-40 15:30:00Negative (09/18/2011 10:30:00)[facility] KfbcjyeWBAMIDWUER7485-42-88 15:30:00None Seen (09/18/2011 10:30:00)[facility] IewmtbsCAIQPFLBXO7785-69-31 15:30:00None Seen (09/18/2011 10:30:00)[facility] CenterZxlkigwTZNOMKWSFU0138-14-94 15:30:00None Seen (09/18/2011 10:30:00)[facility] CenterOireaxpPNBDCCGNSR5884-87-29 15:30:00Few /HPF *ABN*(09/18/2011 10:30:00)[facility] CenterWibkzifALJDAWTHKA5581-36-49 15:30:00Performed (09/18/2011 10:30:00)[facility] CenterCvvnxvwAHLIWZMMYZ0946-38-34 15:30:00Rare /LPF (09/18/2011 10:30:00)[facility] CenterSiqtagjQRQFMPHVNE5417-00-84 15:30:0015 mg/dL *ABN*(09/18/2011 10:30:00)[facility]KjiflfjKYHXWAFPNE5256-89-87 15:30:00>=1000 mg/dL *ABN*(09/18/2011 10:30:00) [facility] CenterRnytlueORNDXVTOKT9824-00-99 15:30:00Trace *ABN*(09/18/2011 10:30:00) [facility] CenterHjwaeoyJVFQMSTKXV6706-24-72 15:30:000.2[facility]annURINALYSIS 2011-09-18 15:30:00Negative (09/18/2011 10:30:00)[facility]annUR[facility] 2011-09-18 15:30:00Negative *NA*(09/18/2011 10:30:00)[facility]annUR[facility]IS 2011-09-18 15:30:00Negative (09/18/2011 10:30:00)[facility]annUR[facility]IS 2011-09-18 15:30:00Negative (09/18/2011 10:30:00)[facility]annURINALYSIS 2011-09-18 15:30:00 Test Item Value Reference Range Interpretation Comments UA pH (test code = UA pH) 7.5 1 5.0-8.0 N [facility] CenterVaghxobPQHNVOHUCY7382-14-72 15:30:00 Test Item Value Reference Range Interpretation Comments UA Spec Grav (test code = UA Spec 1.010 1 N Grav) [facility] SrhuffxIOLUFQCIOH6518-60-05 15:30:00Slight Cloudy (09/18/2011 10:30:00) [facility] CfdfmstCAEFYDPWSB4028-78-62 15:30:00Yellow *NA*(09/18/2011 10:30:00) [facility] JotwojwHVYPMCFYO5747-82-08 14:07:004.4[facility] [facility]CHEMISTRY 2011-09-18 14:07:001.6[facility]annBEDSIDE GLUCOSE JQLFJNF1882-49-12 14:01:00 >400[facility] KnlheklSYUHRWNWT5184-79-12 13:52:0092[facility]annCHEMISTRY 2011-09-18 13:52:0030[facility] DfkjrpfESNJGXQJK5232-96-52 13:52:003.5[facility] EigjmhcPQBBFPXJL8885-37-57 13:52:95371Rzvnmolo WdqsrfpRJVOUOJRA3211-50-03 13:52:001.3[facility] WwvsfomMAAUQFKFK2062-45-16 13:52:65420Toptmbbg Vin JLCDOBVCZ8110-68-78 13:52:0017[facility] PsxmtxaHAFILJFGB1406-14-51 13:52:0014.5 [facility] RivghrtWWZMUTDQNF4289-71-65 13:52:0012.0[facility] HermannHEMATOLOGY 2011-09-18 13:52:48819Sgmikpny OgfkaanVIYMIETJTK9864-73-84 13:52:0033.7[facility] NmkvhnuUKBGASJCBT6585-94-51 13:52:00 Test Item Value Reference Range Interpretation Comments MCH (test code = MCH) 28.5 pg 27.0-31.0 N [facility] FsrfuhuAXCRSWOJAN6530-53-74 13:52:0015.1[facility] HermannHEMATOLOGY 2011-09-18 13:52:0084.6[facility] IudrkidGHRVBESVIG7573-02-58 13:52:0036.4[facility] JsusmhgURSCRRIYCY0615-27-15 13:52:0012.3[facility] AfytytzOZQGOBOCEQ7877-77-17 13:52:004.30[facility] VqwgelrETPDSUIDAJ5668-49-20 13:52:0011.7[facility] PKQMMEQSNC0345-23-54 13:52:002.9[facility] AgyyivvNJUMGHEQFX8556-43-10 13:52:000.2 [facility] LrozogmHYVKOAFVTP0235-26-45 13:52:000.0[facility]annHEMATOLOGY 2011-09-18 13:52:000.0[facility] ZgtmlfkDCSTILBIGK0889-47-79 13:52:000.3[facility] EfujqdfQLNAMVHGDF6898-51-37 13:52:0092.0[facility] FndhxxnHIVKMILMBP9258-97-38 13:52:004.9[facility] XhviiihKEEMEWYBOA4955-80-80 13:52:00Rare *ABN*(09/18/2011 08:52:00)[facility] KmpevtmXCLUDNNAYG8908-04-82 13:52:00Slight *ABN*(09/18/2011 08:52:00)[facility] AztzacoRJHOZLKWWV1820-10-15 13:52:001+ *ABN*(09/18/2011 08:52:00)[facility] FudasvtUXJQCENKTW9454-75-48 13:52:001+ *ABN*(09/18/2011 08:52:00)[facility] CozjlifVKLUDQYSAU3021-90-90 13:52:000.6[facility] Vin GSJIHJKJIN9600-81-51 13:52:0010.8[facility] EbiubvaCOJLSJYZDT1241-82-91 13:52:00 0.0[facility] UnmbgrpPZXLOVHNJK8305-63-01 13:52:001+ *ABN*(09/18/2011 08:52:00) [facility] UrpqqehVAKLHWDPBR1265-42-72 13:52:00Negative *NA*(09/18/2011 08:52:00) [facility] RzjukycVAVHONLZW2982-96-49 13:52:0024[facility]annCHEMISTRY 2011-09-18 13:52:0032.0[facility] IydvxziCEMXSHEYI7778-06-72 13:52:0044[facility] BodwmirGSFFAACFN1500-31-97 13:52:007[facility] BsuurfbZNHXDCUXG5539-33-06 13:52:00 48.0[facility] HukkrroSBXJFTQHI1754-87-28 13:52:0037.0[facility] HermannCHEMISTRY 2011-09-18 13:52:007.47[facility] XghklnuDHDRVOSWX1962-26-44 13:52:0010.1[facility]annBEDSIDE GLUCOSE LEKIWFK3545-20-55 17:34:12880Tllslsgo HermannBEDSIDE GLUCOSE IRQTDYV8179-25-69 11:43:0091[facility]annBEDSIDE GLUCOSE TESTING 2011-09-09 02:45:40618Ttffxetc XljkgysEEQGXIIPC8614-27-47 08:47:66122Fjifniio UcikiddRWBLRXMDX0656-23-16 08:47:19810Vkllfbat DccrnanZOVBVWYRD1954-96-20 08:47:0029[facility] FhaeflkYGVLFJAJU7025-50-10 08:47:63689Wbarcmbb Vin EOKRTTLYM4067-03-72 08:47:0010[facility] VwqmqrhNTVEMHAJP6337-61-56 08:47:003.8 [facility] TpqswmoEMOQKGFBC8183-01-39 08:47:000.6[facility] HermannCHEMISTRY 2011-09-08 08:47:008.5[facility] PveenpkSLGLDGKRS0466-16-70 08:47:0014.8[facility] CgpclqzSUIVZECVQH2593-21-33 08:47:00 Test Item Value Reference Range Interpretation Comments MCH (test code = MCH) 28.9 pg 27.0-31.0 N [facility] XrjcbmpMZCIGDVSYC9889-80-30 08:47:0082.1[facility]annHEMATOLOGY 2011-09-08 08:47:0025.9[facility] IdhgsegKIZGCKTITW3805-79-45 08:47:19051Fytcxeoa IaxmmyaMEQINZUOTY2778-57-32 08:47:0014.5[facility] YocqcetWEPIURGRHT9454-48-42 08:47:0035.2[facility] EyrpghfFMYMVDMQIP5536-75-30 08:47:009.1[facility] ZGFBAEDKMY4534-06-17 08:47:003.15[facility] ReyutpmVWNFECDJPC0665-07-80 08:47:00 9.0[facility] VeqcnsoEPETFYQOTG0528-94-87 08:47:006.3[facility] HermannHEMATOLOGY 2011-09-08 08:47:000.0[facility] PtfgfvpMQMYNVOWXY3818-61-04 08:47:000.0[facility] SwibwujMDTCDBRWVA8603-27-94 08:47:003.8[facility] DzofwnkEFEQPIDDBW2460-62-09 08:47:002.0[facility] NliulpxEVRCMKVUUB2263-06-42 08:47:000.5[facility] PKGFRUCXHZ4621-69-51 08:47:000.7[facility] FonteirZTGEUGHFCG9373-56-47 08:47:006.2 [facility] BoggzljTKZQBKWHTM5396-28-33 08:47:0061.1[facility] HermannHEMATOLOGY 2011-09-08 08:47:0031.5[facility] AyoxozpHXCXDENYTZ1157-59-51 08:47:000.4[facility] YqulebaONNHIWKVP5090-53-38 10:54:0027[facility] YcswzbrLOEJMHXLD0765-52-33 10:54:62245Zxvjjryh DiwpnqeOLQDQRQXA1527-62-68 10:54:000.5[facility] Vin SOXOCFRMD5030-62-65 10:54:0010[facility] XkzxrveCHEUMXAOC1695-77-50 10:54:004.1 [facility] QfzvyghYMLSCXUYX5625-91-66 10:54:90877Kjswywyv HermannCHEMISTRY 2011-09-07 10:54:0083[facility] UaqdmmxBHAVEAUKA1004-44-87 10:54:008.4[facility] CqngdnaLEOUMUDAD1149-55-21 10:54:0014.1[facility] IgbmvukNQAYDKXMMD4430-91-29 10:54:0035.5[facility] UrmdmrrCKSFRJNUGH2064-20-90 10:54:004.7[facility] AXDWNRIPNO7634-82-47 10:54:0092.6[facility] QdcyfpbUISTDEYMQJ1580-51-33 10:54:00 Test Item Value Reference Range Interpretation Comments MCH (test code = MCH) 31.4 pg 27.0-31.0 H [facility] GbefzhnHGPPWQJHSW0909-15-21 10:54:003.84[facility]annHEMATOLOGY 2011-09-07 10:54:0012.1[facility] GcijaacTIKVHXMQWC4410-24-92 10:54:11966Vceqsaeh ViqspvfAIHBXUOYAT6624-40-04 10:54:0012.7[facility] IkvglzjAKIRVDAUMV9009-19-49 10:54:0033.9[facility] DnckijxSDCYSBVQFW3955-29-54 10:54:007.2[facility] Vin VPYVCFBHRO6166-94-48 10:54:000.95[facility] HhgjmuqRJJFNWRMEW4665-17-57 10:54:00 Test Item Value Reference Range Interpretation Comments PT (test code = PT) 12.7 s 12.0-14.7 N [facility] TedpkgsCEHTUMFMSE3206-83-21 10:54:00 Test Item Value Reference Range Interpretation Comments PTT (test code = PTT) 28.5 s 22.9-35.8 N [facility] PytzzhnXHRAOVTIJS5754-91-81 10:54:000.1[facility]annHEMATOLOGY 2011-09-07 10:54:000.0[facility] BconmcgVBADTUNFWC9123-59-12 10:54:000.4[facility] VymqudgZFMHZJPNXY3684-51-44 10:54:002.1[facility] NzjcuktWDSZUEMYNK6595-73-57 10:54:009.0[facility] TpiqxidVGJNRMBJTT3376-83-22 10:54:002.4[facility] Vin MCFZSZQDHZ4418-95-49 10:54:000.4[facility] GlktdbsMXFIHKNMOX5578-34-22 10:54:002.0 [facility] ApgnuwhWRQIQCUQIH1447-95-66 10:54:0042.8[facility] HermannHEMATOLOGY 2011-09-07 10:54:0045.4[facility] EksyoysDNCICLGME5216-13-09 10:02:38861Joteacyn DhyxdipTMXDLLDLR6758-01-05 10:02:004.1[facility] GnuwfknOLHOPOMPY0905-50-77 10:02:20026Kxjmotai KryragmSSCSNIVOM4025-54-47 10:02:0029[facility] ORUETMILW7687-42-69 10:02:008.7[facility] EkvwbvmAVMKZZHVM1715-77-14 10:02:006 [facility] NzwmmpyNLQJXEKOO1521-01-24 10:02:000.6[facility] HermannCHEMISTRY 2011-09-07 10:02:98740Wtrrqyjb TmzhmojWGDCBXJRS9956-99-72 10:02:0013.1[facility] RruihwrJZZSBEIWSG7794-38-52 10:02:000.0[facility] SprpmnmOAEEXUJAVR2631-08-80 10:02:000.3[facility] JffmnqgNJLFBWNQUU4429-29-88 10:02:000.1[facility] Vin AWUJHZPHYW0225-91-67 10:02:002.8[facility] SyovnynRSCDCCJGPP9978-10-37 10:02:001.7 [facility] DvbvjctYMIBHKRQHA9807-57-06 10:02:000.6[facility] HermannHEMATOLOGY 2011-09-07 10:02:006.9[facility] FsmpdexHFKWDZKAHI9187-46-25 10:02:002.0[facility] RvcwptiDVHBNAJAGZ0367-14-89 10:02:0055.8[facility] YzkwebkYTRUPGJPJZ9363-55-76 10:02:0034.7[facility] RkengeiAFWHXREBXK0313-72-31 10:02:00 Test Item Value Reference Range Interpretation Comments PTT (test code = PTT) 32.2 s 22.9-35.8 N [facility] CqmhpbtTNFXJODEJB9669-89-47 10:02:00 Test Item Value Reference Range Interpretation Comments PT (test code = PT) 13.3 s 12.0-14.7 N [facility] DlkelysUVXGWLBNME0369-77-33 10:02:001.01[facility]annHEMATOLOGY 2011-09-07 10:02:0027.5[facility] QtchuirJABZNICITJ6710-70-88 10:02:003.34[facility] EqmnypzNDNCWMGXKQ6211-80-48 10:02:009.7[facility] FanopqdCMTTCOOZGL4094-23-64 10:02:005.0[facility] PwvanjlVSMYOOPWCK8570-33-94 10:02:009.2[facility] AVGDYLGLON1998-19-03 10:02:97559Tqmzeudl FqkafgaGNCNGQLUVC0088-48-91 10:02:00 14.3[facility] WotijlaDRHCROWFCG5572-86-48 10:02:0035.2[facility] HermannHEMATOLOGY 2011-09-07 10:02:00 Test Item Value Reference Range Interpretation Comments MCH (test code = MCH) 28.9 pg 27.0-31.0 N [facility] OuvfsqsMRGALOCXSW2378-37-51 10:02:0082.1[facility] HermannCHEMISTRY 2011-09-03 09:24:002.1[facility] YyepsijPAAUPLNRV1778-48-00 17:10:0037.0[facility] VvxlsbzBCMBRDWYY6589-32-52 17:10:0027.0[facility] EhmjrquJRSKZQGFV8014-89-73 17:10:0047[facility] OemtvwbQAHFNGBXJ8967-15-48 17:10:007.37[facility] Vin XMVOVHZBV6089-78-56 17:10:001[facility] JxnmrgsJSCBBIOIR0360-93-74 17:10:0027.2 [facility] MmeexyoYPOCGYPNB7895-04-77 17:10:0019[facility] HermannCHEMISTRY 2011-09-01 13:09:001.0[facility] AnfilivVTSNQGOAF2906-26-59 12:20:00Negative (09/01/2011 07:20:00)[facility] UlvvxotLPNPVKQRRM1423-19-96 12:20:00Occasional /LPF (09/01/2011 07:20:00)[facility] UlkbckiBYUZVYPLUY6529-32-83 12:20:00Negative (09/01/2011 07:20:00)[facility] YmlsehwYRYHIENGYE0499-74-77 12:20:00Negative (09/01/2011 07:20:00)[facility] SfgasriCGSEWORCSW6474-77-34 12:20:000.2[facility] OoujggdJKDIJNOLMM5318-87-10 12:20:00Negative (09/01/2011 07:20:00)[facility] SntputaTBCXQJISDN2296-94-45 12:20:00>=80 mg/dL *ABN*(09/01/2011 07:20:00) [facility] XrkihdiMXOHSIXXGI9259-85-09 12:20:00Negative (09/01/2011 07:20:00) [facility]KNAFIISG3652[facility] 12:20:00 Test Item Value Reference Range Interpretation Comments UA pH (test code = UA pH) 6.0 1 5.0-8.0 N [facility] XutdzbvXPHZLXYUBV6828-39-69 12:20:00Negative (09/01/2011 07:20:00) [facility] OfxjjkaDFCHGZTIYA1284-61-43 12:20:00>=1000 mg/dL *ABN*(09/01/2011 07:20:00)[facility]IpumhpwQIMFRHJKEY7343-63-33 12:20:00 Test Item Value Reference Range Interpretation Comments UA Spec Grav (test code = UA Spec 1.035 1 H Grav) [facility] PrkbiulOVFHURCGRG1931-61-39 12:20:00Clear (09/01/2011 07:20:00)[facility] ZleshlcVZTUATMRCC1824-43-29 12:20:00Yellow *NA*(09/01/2011 07:20:00)[facility] HppioytQMMAQZBNA3975-29-42 08:00:002.8[facility] XcbcvxsMEJRNFUZH1968-81-84 07:47:001.5[facility] KvtnubqUGJQSICHWI8664-80-79 07:47:00Slight (09/01/2011 02:47:00)[facility] TlumtbhRTPOLQCCRT1513-24-59 07:47:001+ *ABN*(09/01/2011 02:47:00)[facility] EhgeanuTXHIICQOKQ2524-10-66 07:47:00Slight *ABN*(09/01/2011 02:47:00)[facility] CrgxlnxPBBTWDATTS6003-77-05 07:47:00Slight *ABN*(09/01/2011 02:47:00)[facility] XOTOABD2065-17-76 17:02:16022Ireewpov HermannBEDSIDE GLUCOSE OUOBSXO3258-44-46 13:45:02614Qfmngxvm HermannCHEMISTRY 2011-08-23 10:22:003.0[facility] QydnpivHSJAHVXIZ7173-68-48 10:22:001.8[facility] YzqsusqNLLJKAATO4496-58-18 10:22:80868Youtbioy HfwnujaGXKQBUCZU6205-35-13 10:22:003.0[facility] FjuimizRRUVWZDKQ5275-05-06 10:22:00492Bsuxcqob [facility] EODSMEONT6980-14-55 10:22:000.6[facility] YavbfloDXIRLBENL5333-80-33 10:22:0023 [facility] GyggtlkVJKBQCVKV2162-76-47 10:22:007.3[facility] HermannCHEMISTRY 2011-08-23 10:22:96100Zagpagfv TxjnfsrYVEQCRBPQ6199-64-92 10:22:0014.0[facility] NslaakbMSPUVSLLN9200-07-37 10:22:005[facility] QdccbvzGFXGRPGCUY5389-85-28 10:22:0069.6[facility] QmbckoqILAMDTCSBG7059-15-23 10:22:0021.5[facility] Vin XIZKLNJWZM5723-20-02 10:22:007.6[facility] ZesdcjtCPXPYZONOT3970-36-40 10:22:001.0 [facility] ViwmjowDAFJZDDUVA4950-07-01 10:22:000.3[facility] HermannHEMATOLOGY 2011-08-23 10:22:004.8[facility] EffthmnTSRTWKHTWC3967-17-66 10:22:000.1[facility] MmgszflRUPNVRXZAR6726-83-92 10:22:001.5[facility] XmfjihpRDNWVPBMKZ0970-55-98 10:22:000.5[facility] KxekwwnKMEFDTAATS6961-84-14 10:22:000.0[facility] CDEQLPXZON9242-79-76 10:22:0011.0[facility] WlfeikeFYEEHNAEIG6701-97-36 10:22:00 161[facility] JdvhydsMSVAIXISMK2804-08-40 10:22:00 Test Item Value Reference Range Interpretation Comments MCH (test code = MCH) 29.6 pg 27.0-31.0 N [facility] HaqcokiPJGDRUMGZH3002-91-86 10:22:0035.4[facility] HermannHEMATOLOGY 2011-08-23 10:22:0014.1[facility] KsigzixCLAWAVMVQH7768-95-26 10:22:006.8[facility] LwvnvsfJBSDVYQWGL5605-33-81 10:22:0083.5[facility] EurfwrrTLFAEDVHDP4714-70-39 10:22:004.44[facility] HbynpxrGSYQTYTHMC4394-64-42 10:22:0013.1[facility] Vin LUPBZPCNWZ5837-99-42 10:22:0037.1[facility] HermannBEDSIDE GLUCOSE TESTING 2011-08-23 02:20:96898Gnhxqzuj WlbekjwNANSOZXJB2383-63-29 09:47:002.5[facility] BgkbrfkZXNDYOPFB7016-10-30 09:47:62717Nbvyqzcp PoqohmdOGRKPJBXL4596-19-04 09:47:007[facility] SlydvimEUJNGEFHS4298-15-62 09:47:0019[facility] HermannCHEMISTRY 2011-08-22 09:47:000.3[facility] RnuyoufPJEGGWVSE7731-58-34 09:47:92880Uyyhxyzh ZigllmcSGHXIYRRH6012-70-11 09:47:63202Pkujvitz YzpvostZQFGBMVWW2440-75-38 09:47:003.6[facility] QbahaplBTQMJJGHN6044-66-20 09:47:007.9[facility] GFTXCWLLG4202-91-46 09:47:0018.6[facility] LmedfwjBULIJUXNN8263-68-99 09:47:001.6 [facility] AyigugeLPFUJZPHVH1171-74-93 09:47:000.0[facility]annHEMATOLOGY 2011-08-22 09:47:000.4[facility] GchhrgiZBLKKLBSDR6678-07-87 09:47:000.5[facility] HmhnxkyDVXYEMIYFD5420-68-59 09:47:005.9[facility] GwmwsrxVKRKLNYRVS8978-30-06 09:47:001.2[facility] XfmabnpCLPGFICZIB3946-51-63 09:47:000.5[facility] WZGRWSYGGF4563-41-69 09:47:000.0[facility] FmcnpisYTGNLJCGPS7927-66-81 09:47:00 76.9[facility] EgzhfxoTXWWOUARPP6245-25-86 09:47:0015.9[facility]annHEMATOLOGY 2011-08-22 09:47:006.3[facility] BhyfjbxLWRPMWWSZI4939-53-86 09:47:0082.8[facility] HhcpzloVDAIRLEJOB3011-24-39 09:47:0039.7[facility] XuiqbtiRCQZYMJLLV7699-50-55 09:47:00 Test Item Value Reference Range Interpretation Comments MCH (test code = MCH) 29.1 pg 27.0-31.0 N [facility] QkcnhsxYUFLQNWEDQ4917-56-86 09:47:0014.0[facility]annHEMATOLOGY 2011-08-22 09:47:0035.2[facility] UznbitiTWRYMBOBOA3901-79-37 09:47:0013.9[facility] SrzkpyqLKVBZKJJSK5131-19-29 09:47:28552Dtkupjyy ScbbvuaCJASXXJYHL5950-20-88 09:47:0011.9[facility] OwmgckhVAAKQFSRDO5562-66-60 09:47:007.7[facility] Vin LDDKLJWQCJ7817-54-25 09:47:004.80[facility] ZokizcaLAVEHWAEK7997-45-21 10:28:002.6 [facility] SmdcnvuEWNYKYTEI9187-30-55 10:28:001.8[facility] HermannCHEMISTRY 2011-08-21 10:28:003.7[facility] NnzxguzWRGQVWZSZ8313-21-01 10:28:40361Ssvdfylt UrpkukrOKFVPKPBN3835-02-32 10:28:000.6[facility] PenrbjzQEBDAKZME2344-83-58 10:28:0016[facility] FidobefMADUODYNG2685-92-04 10:28:08917Xvxijyto [facility] ZVYSVTDZB1721-49-70 10:28:008.3[facility] WrujbijLIGZYPVJV1037-61-47 10:28:0019.7 [facility] FlxfbivKNECFBMFZ0490-05-28 10:28:0099[facility] HermannCHEMISTRY 2011-08-21 10:28:0022[facility] WsigkazKQKKRAIWTQ8683-26-92 10:28:44948Pgtriqhc TtgpvekWZKMUBQSUK5551-67-64 10:28:0012.0[facility] PklfsegTUQHSDSVPX6941-42-01 10:28:007.3[facility] HtnkuoeMSZQZLFNXM2160-21-58 10:28:0014.6[facility] Vin QFVORMYHPE4212-90-31 10:28:0035.0[facility] GshdzpqCOXHRSEPFV3570-48-58 10:28:00 4.54[facility] SfyaceqGLGXSTWPGY7863-80-60 10:28:0037.6[facility] HermannHEMATOLOGY 2011-08-21 10:28:0082.9[facility] UmmyovvQZXVLHXPUB6214-33-85 10:28:00 Test Item Value Reference Range Interpretation Comments MCH (test code = MCH) 29.0 pg 27.0-31.0 N [facility] EilwjpdLQRSGSGABH2176-05-28 10:28:0013.2[facility]annHEMATOLOGY 2011-08-21 10:28:00Slight *ABN*(08/21/2011 04:28:00)[facility]annHEMATOLOGY 2011-08-21 10:28:00Slight (08/21/2011 04:28:00)[facility]annHEMATOLOGY 2011-08-21 10:28:000.0[facility] AwzrpdnUPPSZCLVQF5973-51-64 10:28:00Slight (08/21/2011 04:28:00)[facility] VbbmspiEEBDMLHIHR9232-40-93 10:28:000.6[facility] HxfjtarBLIENOECFW2676-26-42 10:28:000.0[facility] IzkujdmWCAPDAKAOT1476-53-94 10:28:005.3[facility] JumvgccHYMTBVVZJB9310-02-33 10:28:001.3[facility] Vin AHZXGBNDUE4597-97-58 10:28:000.5[facility] NniejvvATFKKPGTVS6021-22-93 10:28:008.5 [facility] BacqqruXHKVRZPVPV1099-04-68 10:28:000.3[facility] HermannHEMATOLOGY 2011-08-21 10:28:0017.3[facility] PxclgpaSNHYRWZHTT9449-49-76 10:28:0073.4[facility] ZkqlkzqEEWHOQUDD4502-31-69 21:58:00Negative (08/19/2011 15:58:00)[facility] ZcqqyukFMILLUKAT2924-34-79 21:58:72521Qjfayjxo KxygglnATDKSSNSU6363-49-90 21:58:0054[facility] HlwoukyEWXVSOKXN7355-23-58 21:58:18719Gclxmssv Vin QGTEUMELP6621-42-87 21:58:000.1[facility] DlidigsYBILTJLJH2766-56-28 21:58:000.9 [facility] UnlblypXRIJEXURP8360-88-81 21:58:004.4[facility] HermannCHEMISTRY 2011-08-19 21:58:008.8[facility] CtragubXEXUQLXTH0199-68-13 21:58:000.8[facility] CwvutlyEJRDCREVS6930-51-42 21:58:0036[facility] DyvzeavMJNPOUVIQ3990-25-79 21:58:004.4[facility] VbfabbrJXLWFNBRQ8729-38-73 21:58:001.0[facility] Vin XTHJDWSODC8767-82-75 21:58:00Occasional /HPF (08/19/2011 15:58:00)[facility] BnhltoeWLOYARHVZT0686-03-48 21:58:003-5 /HPF *ABN*(08/19/2011 15:58:00)[facility] LmgkjojLWFJMFCHBH8877-29-15 21:58:003[facility] UopilroLEWWFAMOGR7828-70-20 21:58:00Few /LPF (08/19/2011 15:58:00)[facility] QojrshmWYIXGTOAIC3214-09-53 21:58:00Occasional /HPF *ABN*(08/19/2011 15:58:00)[facility] HermannURINALYSIS 2011-08-19 21:58:000.2[facility] RausuzxKNCGYUNTHH2196-22-54 21:58:00Rare /LPF (08/19/2011 15:58:00)[facility]MtaaupkVJYPDDROFL9203-39-63 21:58:00Performed (08/19/2011 15:58:00)[facility] CenterGwyfmykJGILFKSBZJ7815-00-57 21:58:00Negative (08/19/2011 15:58:00)[facility] CenterOiyobhuKSRPORBUDV3538-58-08 21:58:00Negative (08/19/2011 15:58:00)[facility] CenterKvcsnevYEXOCUGBHI9839-50-83 21:58:00 Test Item Value Reference Range Interpretation Comments UA pH (test code = UA pH) 5.5 1 5.0-8.0 N [facility] CenterRrmvlpbKJSZKVEMJL6348-97-32 21:58:00Trace *ABN*(08/19/2011 15:58:00) [facility]XRASGRBTTY2344-17-29 21:58:00Negative (08/19/2011 15:58:00) [facility] CenterSmvoppxITQCTXZHVR7751-89-15 21:58:0080 mg/dL *ABN*(08/19/2011 15:58:00) [facility] CenterWsabfyoPKWBVHQBTZ0849-90-85 21:58:00>=1000 mg/dL *ABN*(08/19/2011 15:58:00)[facility] CenterLdboyzoBMKPNMSFNS8674-32-83 21:58:00Negative (08/19/2011 15:58:00)[facility] CenterNmuwxpnGXRRWSOZFD2192-83-81 21:58:00Slight Cloudy (08/19/2011 15:58:00)[facility] CenterRweumnlKEQWSURNCL1959-45-79 21:58:00 Test Item Value Reference Range Interpretation Comments UA Spec Grav (test code = UA Spec 1.025 1 Grav) [facility] CenterAekmuqnFHTGHLOHWG7805-21-32 21:58:00Yellow (08/19/2011 15:58:00) [facility] CenterUkayegkDMGPNIONI8554-02-41 21:13:0023[facility] 2011-08-19 21:13:001.0[facility] AapwzsvZZVMJBAUK9318-35-91 21:13:97560Qtiimqsl FcwfepfEIGSCMKMH2615-92-42 21:13:0056[facility] AymloqwTTAWBCBFM5709-59-13 21:13:009.0[facility] KretkbgJLTFBTYNY3891-52-52 21:13:004.8[facility] Vin XXZVDRVNP1207-20-94 21:13:004.2[facility] QlekwllASHEGBDEQ5256-36-89 21:13:001.1 [facility] JpldjduMARBLYPNM0019-19-65 21:13:0030[facility]annHEMATOLOGY 2011-08-19 21:13:00Normal (08/19/2011 15:13:00)[facility] 2011-08-19 21:13:00Slight *ABN*(08/19/2011 15:13:00)[facility] 2011-08-19 21:13:000.0[facility] BuyvaffKHCERSTAJU2874-10-71 21:13:000.0[facility] SntdmifNBTAFCHIQ5083-36-80 21:10:0074.0[facility] FfcdwmwXIFYXQSSC2829-06-11 21:10:0037.0[facility] BpnnlugHOPJYYGRH2101-62-41 21:10:0042[facility] AICBSZQBS7398-04-68 21:10:0017.3[facility] KokmnpbPBSJWHYRR5056-91-11 21:10:007.34 [facility] BwhexmmTDUJJRSWS9861-31-58 21:10:0032[facility]annCHEMISTRY 2011-08-19 21:10:00-7[facility] NcjxxrvIELQGKDDRE7969-07-22 20:34:00Negative *NA*(08/19/2011 14:34:00)[facility] Vin
[2020-09-30 06:55] LABS: Absolute Lymphocytes (CBC) 1.9 K/uL (0.7-4.9); Basophils % 1.3 % (0-1.3); Hematocrit 26.1 % (36.0-45.0); Lymphocytes % 23.3 % (15.3-44.8); RBC Red Blood Cell Count 2.83 M/uL (3.86-4.86)
[2020-09-30 07:23] LABS: Albumin 3.7 g/dL (3.4-5.0); Bilirubin Direct 0.2 mg/dL (0-0.2); Bilirubin Total 0.7 mg/dL (0.2-1.0); Potassium 5.3 mmol/L (3.5-5.1); Protein, Total 7.1 g/dL (6.4-8.2)
[2020-09-30] MEDS ORDERED: MORPHINE 4 MG/ML SYR ONE ×2 (07:30→10:44)
[2020-09-30] MEDS ORDERED: NA CHLORIDE 0.9% 500 ML ONE (07:31)
[2020-09-30] MEDS ORDERED: ONDANSETRON 4 MG/2 ML VIAL ONE ×2 (07:31→08:53)
[2020-09-30] MEDS ORDERED: FAMOTIDINE 20 MG/2 ML VIAL IV ONE (07:31)
[2020-09-30] MEDS ORDERED: HYDRALAZINE HCL 20 MG/ML VIAL ONE (08:12)
--- NOTE | 2020-09-30 08:34 | ER ---
Nurse's Notes [facility] Name: Cathi Zaldivar Age: 39 yrs Sex: Female : 1980 Arrival Date: 09/30/2020 Time: 06:14 Bed 20 Private MD: Diagnosis: End stage renal disease-on HD, M,W,F;Anemia, unspecified;Chest pain, unspecified;Essential (primary) hypertension;Type 2 diabetes mellitus;Vomiting;Hyperkalemia;Cholelithiasis Presentation: 09/30 06:22 Chief complaint: Patient states: Sent from dialysis for black diarrhea, vomiting, leg sf cramps, sleep apnea starting Wednesday during dialysis. No stick/BP right arm due to dialysis fistula. Coronavirus screen: Client denies travel out of the [place] in the last 14 days. At this time, the client does not indicate any symptoms associated with coronavirus-19. Ebola Screen: Patient negative for fever greater than or equal to 101.5 degrees Fahrenheit, and additional compatible Ebola Virus Disease symptoms Patient denies exposure to infectious person. Patient denies travel to an Ebola-affected area in the 21 days before illness onset. No symptoms or risks identified at this time. Initial Sepsis Screen: Does the patient meet any 2 criteria? No. Patient's initial sepsis screen is negative. Does the patient have a suspected source of infection? Yes: Acute abdominal pain. Risk Assessment: Do you want to hurt yourself or someone else? Patient reports no desire to harm self or others. Onset of symptoms was September 27, 2020. 06:22 Method Of Arrival: Ambulatory sf 06:22 Acuity: JESSICA 3 sf Triage Assessment: 06:23 General: Appears uncomfortable, Behavior is calm, cooperative. Pain: Complains of pain sf in abdomen Pain currently is 8 out of 10 on a pain scale. Quality of pain is described as crampy. EENT: No deficits noted. No signs and/or symptoms were reported regarding the EENT system. Neuro: No deficits noted. Level of Consciousness is awake, alert, Oriented to person, place, time, situation. Cardiovascular: No deficits noted. Reports palpitations, Patient's skin is warm and dry. Respiratory: No deficits noted. Airway is patent Respiratory effort is even, unlabored, Respiratory pattern is regular, symmetrical. GI: Abdomen is non-distended, Reports lower abdominal pain, cramping, diarrhea, nausea, vomiting, dark stool. : Reports dialysis Wednesday, Wednesday, Wednesday mornings. Derm: No deficits noted. No signs and/or symptoms reported regarding the dermatologic system. Musculoskeletal: No deficits noted. No signs and/or symptoms reported regarding the musculoskeletal system. 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 N/A - Irregular menses sf Historical: - Allergies: 06:22 ambien; bb 06:22 Codeine; bb 06:22 Demerol; bb 06:22 GUAIFENESIN; bb 06:22 Lisinopril; bb 06:22 Nitrofurantoin Macrocrystal; bb 06:22 PENICILLINS; bb 06:22 Prolixin; bb 06:22 zolpidem tartrate; bb - Home Meds: 06:36 sertraline 100 mg Oral tab [Active]; Novolog 100 unit/mL Sub-Q tab [Active]; metoprolol sf tartrate 25 mg Oral tab 1 tab 2 times per day [Active]; pravastatin Oral [Active]; Lantus 100 unit/mL Sub-Q tab as needed [Active]; hydralazine 50 mg Oral tab [Active]; gabapentin 100 mg Oral cap as needed [Active]; doxazosin 4 mg Oral tab [Active]; divalproex 500 mg Oral tab 2 times per day [Active]; tramadol 50 mg Oral tab 1 tab PRN [Active]; - PMHx: 06:36 chronic kidney disease; cyclic vomiting syndrome; Diabetes - NIDDM; Dialysis; m-w-f; sf ENCEPHALOPATHY; Gastroparesis; HD-TTHSat; liver failure; PERIPHERAL NEUROPATHY; 06:44 CHF; Seizures; Hypertension; "mental problems"; sf - PSHx: 06:36 dialysis fistula right arm; sf - Immunization history:: Adult Immunizations. - Social history:: Smoking status: Patient denies any tobacco usage or history of. Patient/guardian denies using alcohol, street drugs, IV drugs, Patient/guardian denies using. - Family history:: not pertinent. Screenin:23 Abuse screen: Denies threats or abuse. Denies injuries from another. Nutritional sf screening: No deficits noted. Tuberculosis screening: No symptoms or risk factors identified. Never had TB. Possible symptoms: None Risk factors: None. Fall Risk Fall in past 12 months (25 points). No secondary diagnosis (0 pts). IV access (20 points). Ambulatory Aid- Crutches/Cane/Walker (15 pts). Gait- Normal/Bed Rest/Wheelchair (0 pts) Mental Status- Oriented to own ability (0 pts). Total Rios Fall Scale indicates High Risk Score (45 or more points). Fall prevention measures have been instituted. Side Rails Up X 2 Placed Close to Nursing Station Frequent Obs/Assessments Occuring. Assessment: 06:23 Reassessment: SEE TRIAGE NOTE. sf 07:25 General: Appears in no apparent distress. comfortable, Behavior is calm, cooperative, jd3 appropriate for age. Pain: Complains of pain in abdomen. Neuro: Level of Consciousness is awake, alert, obeys commands, Oriented to person, place, time, situation. Cardiovascular: Denies chest pain, Capillary refill < 3 seconds Patient's skin is warm and dry. Respiratory: Airway is patent Respiratory effort is even, unlabored, Respiratory pattern is regular, symmetrical, Denies cough, shortness of breath. GI: Abdomen is round Reports diarrhea, nausea, vomiting. : No signs and/or symptoms were reported regarding the genitourinary system. EENT: No signs and/or symptoms were reported regarding the EENT system. Derm: Skin is intact, Skin is dry, Skin is normal, Skin temperature is warm. Musculoskeletal: Circulation, motion, and sensation intact. Range of motion: intact in all extremities. 08:40 Reassessment: Patient and/or family updated on plan of care and expected duration. Pain jd3 level reassessed. Patient is alert, oriented x 3, equal unlabored respirations, skin warm/dry/pink. pt vomiting, provider notified, pt medicated. 10:03 Reassessment: Patient appears in no apparent distress at this time. Patient and/or jd3 family updated on plan of care and expected duration. Pain level reassessed. Patient is alert, oriented x 3, equal unlabored respirations, skin warm/dry/pink. awaiting admission. 11:26 Reassessment: No changes from previously documented assessment. Patient and/or family bp updated on plan of care and expected duration. Pain level reassessed. Patient is alert, oriented x 3, equal unlabored respirations, skin warm/dry/pink. PT ERIK WITH PCT FOR DIALYSIS. 12:33 Reassessment: report given to Roya MAYS, nurse for room 212. pt to go to 2 nd floor jd3 after dialysis. Vital Signs: 06:25 BP 198 / 94; Pulse 79; Resp 18; Temp 97.9; Pulse Ox 100% ; Weight 74.5 kg; Height 5 ft. sf 2 in. (157.48 cm); Pain 8/10; 07:28 BP 207 / 108; Pulse 78; Resp 17 S; Pulse Ox 100% on R/A; bp 08:40 BP 150 / 86; Pulse 86; Resp 17 S; Pulse Ox 95% on R/A; jd3 10:04 BP 184 / 88; Pulse 85; Resp 17 S; Pulse Ox 94% on R/A; jd3 11:27 BP 153 / 71; Pulse 80; Resp 17; Pulse Ox 96% ; bp 06:25 Body Mass Index 30.04 (74.50 kg, 157.48 cm) sf ED Course: 04:40 Initial lab(s) drawn, by ED staff, sent to lab. sf 04:40 Missed attempt(s): 20 gauge in left upper arm. Bleeding controlled, band aid applied, bb catheter tip intact. 06:14 Patient arrived in ED. cl3 06:19 Jose De Jesus Graf MD is Attending Physician. ma2 06:22 Kendall Espinoza, TABATHA is Primary Nurse. sf 06:23 Arm band placed on. sf 06:23 Patient has correct armband on for positive identification. Bed in low position. Call sf light in reach. Side rails up X2. quality assurance monitor body on. Pulse ox on. NIBP on. Door closed. Noise minimized. Visitors limited. Lights dimmed. Warm blanket given. Verbal reassurance given. 06:34 Triage completed. sf 07:07 Report given to TABATHA Morley. sf 07:15 Inserted saline lock: 24 gauge in left upper arm, using aseptic technique. bp 07:16 Attending Physician role handed off by Jose De Jesus Graf MD juan 07:16 Luis Sandra MD is Attending Physician. juan 07:22 Peyman Negron RN is Primary Nurse. jd3 07:33 Basic Metabolic Panel Sent. 5 07:34 EKG done, by ED staff, reviewed by Luis Sandra MD. mh5 07:46 Chest Single View XRAY In Process Unspecified. EDMS 08:31 Chandler Bautista is Hospitalizing Provider. juan 09:17 CT Abd/Pelvis - Without Contrast In Process Unspecified. EDMS 12:32 No provider procedures requiring assistance completed. Patient admitted, IV remains in jd3 place. Administered Medications: 06:49 CANCELLED (n/a): NS 0.9% 1000 ml IV at 1 bolus Per protocol; 1000 mL bolus ma2 07:15 Drug: Zofran (Ondansetron) 4 mg Route: IVP; Site: left upper arm; bp 08:00 Follow up: Response: No adverse reaction jd3 07:15 Drug: Pepcid (famotidine) 20 mg Route: IVP; Site: left upper arm; bp 08:00 Follow up: Response: No adverse reaction jd3 07:15 Drug: morphine 4 mg Route: IVP; Site: left upper arm; bp 08:15 Follow up: Response: No adverse reaction; RASS: Alert and Calm (0) jd3 07:15 Drug: NS 0.9% 500 ml Route: IV; Rate: 125 ml/hr; Site: left upper arm; bp 08:04 Drug: hydrALAZINE 20 mg Route: IV; Rate: per protocol; Site: left upper arm; jd3 09:00 Follow up: Response: No adverse reaction; IV Status: Completed infusion jd3 08:39 Drug: Zofran (Ondansetron) 4 mg Route: IVP; Site: left upper arm; jd3 09:14 Follow up: Response: No adverse reaction jd3 10:29 Drug: Phenergan 12.5 mg Route: IVP; Site: left upper arm; jd3 11:25 Follow up: Response: No adverse reaction jd3 10:29 Drug: morphine 4 mg Route: IVP; Site: left upper arm; jd3 11:25 Follow up: Response: No adverse reaction; RASS: Alert and Calm (0) jd3 Outcome: 08:34 Decision to Hospitalize by Provider. juan 12:32 Admitted to Med/surg accompanied by tech, via wheelchair, room 212, with chart, Report jd3 called to Roya MAYS 12:32 Condition: stable 12:32 Instructed on the need for admit, Demonstrated understanding of instructions. 12:35 Patient left the ED. jd3 Signatures: Dispatcher [employer] Luis Urban MD MD cha Ballard, Brenda, RN RN Ansley Cordero 5 Peyman Negron RN RN jLatrell Bhat RN RN bp Jose De Jesus Graf MD MD ma2 Lewis, Charde 3 Kendall Espinoza RN RN sf Corrections: (The following items were deleted from the chart) 07:38 07:28 Pulse 78bpm; Resp 17bpm; Spontaneous; Pulse Ox 100% RA; jd3 bp
--- NOTE | 2020-09-30 08:35 | EDPHYS ---
Physician Documentation [facility] Name: Cathi Zaldivar Age: 39 yrs Sex: Female : 1980 Arrival Date: 09/30/2020 Time: 06:14 Bed 20 Private MD: DWIGHT Physician Luis Sandra HPI: 09/30 07:00 This 39 yrs old Female presents to ER via Ambulatory with complaints of ma2 Vomiting/Diarrhea. 07:00 The patient presents to the emergency department with nausea, vomiting, diarrhea. ma2 Onset: The symptoms/episode began/occurred gradually, 2 day(s) ago. Associated signs and symptoms: Pertinent negatives: anorexia, diarrhea, flatulence, hematuria. Severity of symptoms: At their worst the symptoms were moderate in the emergency department the symptoms are unchanged. The patient has experienced similar episodes in the past. 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/A - Irregular menses sf Historical: - Allergies: 06:22 ambien; bb 06:22 Codeine; bb 06:22 Demerol; bb 06:22 GUAIFENESIN; bb 06:22 Lisinopril; bb 06:22 Nitrofurantoin Macrocrystal; bb 06:22 PENICILLINS; bb 06:22 Prolixin; bb 06:22 zolpidem tartrate; bb - Home Meds: 06:36 sertraline 100 mg Oral tab [Active]; Novolog 100 unit/mL Sub-Q tab [Active]; metoprolol sf tartrate 25 mg Oral tab 1 tab 2 times per day [Active]; pravastatin Oral [Active]; Lantus 100 unit/mL Sub-Q tab as needed [Active]; hydralazine 50 mg Oral tab [Active]; gabapentin 100 mg Oral cap as needed [Active]; doxazosin 4 mg Oral tab [Active]; divalproex 500 mg Oral tab 2 times per day [Active]; tramadol 50 mg Oral tab 1 tab PRN [Active]; - PMHx: 06:36 chronic kidney disease; cyclic vomiting syndrome; Diabetes - NIDDM; Dialysis; m-w-f; sf ENCEPHALOPATHY; Gastroparesis; HD-TTHSat; liver failure; PERIPHERAL NEUROPATHY; 06:44 CHF; Seizures; Hypertension; "mental problems"; sf - PSHx: 06:36 dialysis fistula right arm; sf - Immunization history:: Adult Immunizations. - Social history:: Smoking status: Patient denies any tobacco usage or history of. Patient/guardian denies using alcohol, street drugs, IV drugs, Patient/guardian denies using. - Family history:: not pertinent. ROS: 07:00 Constitutional: Negative for fever, chills, and weight loss. ma2 07:00 All other systems are negative. 07:42 Eyes: Negative for injury, pain, redness, and discharge, ENT: Negative for injury, juan pain, and discharge, Neck: Negative for injury, pain, and swelling, Respiratory: Negative for shortness of breath, cough, wheezing, and pleuritic chest pain, Back: Negative for injury and pain, : Negative for injury, bleeding, discharge, and swelling, MS/Extremity: Negative for injury and deformity, Skin: Negative for injury, rash, and discoloration, Neuro: Negative for headache, weakness, numbness, tingling, and seizure, Psych: Negative for depression, anxiety, suicide ideation, homicidal ideation, and hallucinations, Allergy/Immunology: Negative for hives, rash, and allergies, Endocrine: Negative for neck swelling, polydipsia, polyuria, polyphagia, and marked weight changes, Hematologic/Lymphatic: Negative for swollen nodes, abnormal bleeding, and unusual bruising. 07:42 Cardiovascular: Positive for chest pain. 07:42 Abdomen/GI: Positive for abdominal pain, nausea and vomiting, diarrhea. Exam: 07:00 Constitutional: This is a well developed, well nourished patient who is awake, alert, ma2 and in no acute distress. Head/Face: Normocephalic, atraumatic. Eyes: Pupils equal round and reactive to light, extra-ocular motions intact. Lids and lashes normal. Conjunctiva and sclera are non-icteric and not injected. Cornea within normal limits. Periorbital areas with no swelling, redness, or edema. ENT: Nares patent. No nasal discharge, no septal abnormalities noted. Tympanic membranes are normal and external auditory canals are clear. Oropharynx with no redness, swelling, or masses, exudates, or evidence of obstruction, uvula midline. Mucous membranes moist. Neck: Trachea midline, no thyromegaly or masses palpated, and no cervical lymphadenopathy. Supple, full range of motion without nuchal rigidity, or vertebral point tenderness. No Meningismus. Chest/axilla: Normal chest wall appearance and motion. Nontender with no deformity. No lesions are appreciated. Cardiovascular: Regular rate and rhythm with a normal S1 and S2. No gallops, murmurs, or rubs. Normal PMI, no JVD. No pulse deficits. Respiratory: Lungs have equal breath sounds bilaterally, clear to auscultation and percussion. No rales, rhonchi or wheezes noted. No increased work of breathing, no retractions or nasal flaring. Abdomen/GI: Soft, non-tender, with normal bowel sounds. No distension or tympany. No guarding or rebound. No evidence of tenderness throughout. Skin: Warm, dry with normal turgor. Normal color with no rashes, no lesions, and no evidence of cellulitis. MS/ Extremity: Pulses equal, no cyanosis. Neurovascular intact. Full, normal range of motion. Neuro: Awake and alert, GCS 15, oriented to person, place, time, and situation. Cranial nerves II-XII grossly intact. Motor strength 5/5 in all extremities. Sensory grossly intact. Cerebellar exam normal. Normal gait. 07:42 Musculoskeletal/extremity: DVT Exam: No signs of deep vein thrombosis. no pain, no juan swelling, no tenderness, negative Homans' sign noted on exam, no appreciated bluish discoloration, no erythema, no increased warmth. 08:27 ECG was reviewed by the Attending Physician. [facility] Vital Signs: 06:25 BP 198 / 94; Pulse 79; Resp 18; Temp 97.9; Pulse Ox 100% ; Weight 74.5 kg; Height 5 ft. sf 2 in. (157.48 cm); Pain 8/10; 07:28 BP 207 / 108; Pulse 78; Resp 17 S; Pulse Ox 100% on R/A; bp 08:40 BP 150 / 86; Pulse 86; Resp 17 S; Pulse Ox 95% on R/A; jd3 10:04 BP 184 / 88; Pulse 85; Resp 17 S; Pulse Ox 94% on R/A; jd3 11:27 BP 153 / 71; Pulse 80; Resp 17; Pulse Ox 96% ; bp 06:25 Body Mass Index 30.04 (74.50 kg, 157.48 cm) MDM: 06:20 Patient medically screened. ma2 07:00 Differential diagnosis: Nonspecific abd pain, gastritis, viral gastroenteritis, ma2 gastroenteritis. Data reviewed: vital signs, nurses notes. Counseling: I had a detailed discussion with the patient and/or guardian regarding: the historical points, exam findings, and any diagnostic results supporting the discharge/admit diagnosis, the presence of at least one elevated blood pressure reading (>120/80) during this emergency department visit, the need for outpatient follow up. Response to treatment: the patient's symptoms have markedly improved after treatment. 07:43 Data interpreted: quality assurance monitor chassis: rate is 78 beats/min, rhythm is regular, Pulse juan oximetry: is not applicable for this patient encounter. is 100 %. Test interpretation: by ED physician or midlevel provider: ECG, plain radiologic studies. 09/30 06:19 Order name: Basic Metabolic Panel [facility] 09/30 06:19 Order name: CBC with Diff; Complete Time: 07:01 [facility] 09/30 06:19 Order name: Hepatic Function; Complete Time: 07:30 [facility] 09/30 06:19 Order name: Lipase; Complete Time: 07:30 [facility] 09/30 06:19 Order name: Basic Metabolic Panel; Complete Time: 07:30 [facility] 09/30 07:06 Order name: Occult Blood [facility] 09/30 07:02 Order name: CT Abd/Pelvis - Without Contrast [facility] 09/30 07:19 Order name: Troponin (emerg Dept Use Only); Complete Time: 08:26 [facility] 09/30 07:30 Order name: Valproic Acid (depakote); Complete Time: 08:26 [facility] 09/30 07:46 Order name: PT-INR; Complete Time: 09:08 [facility] 09/30 07:46 Order name: AMMONIA; Complete Time: 09:08 [facility] 09/30 07:46 Order name: Test, Serum; Complete Time: 09:08 [facility] 09/30 09:44 Order name: SARS-COV-2 RT PCR [facility] 09/30 06:19 Order name: IV Saline Lock; Complete Time: 07:16 [facility] 09/30 06:19 Order name: Labs collected and sent; Complete Time: 07:16 [facility] 09/30 06:49 Order name: EKG - Nurse/Tech; Complete Time: 07:04 [facility] 09/30 07:19 Order name: Chest Single View XRAY [facility] 09/30 07:19 Order name: EKG; Complete Time: 07:20 juan EC:27 Rate is 74 beats/min. Rhythm is regular. QRS [place] is Normal. [place] interval is normal. QRS juan interval is normal. QT interval is normal. No Q waves. T waves are Normal. No ST changes noted. Clinical impression: Normal ECG, Suggests hyperkalemia, and No evidence of ischemia. Interpreted by me. Reviewed by me. Administered Medications: 06:49 CANCELLED (n/a): NS 0.9% 1000 ml IV at 1 bolus Per protocol; 1000 mL bolus ma2 07:15 Drug: Zofran (Ondansetron) 4 mg Route: IVP; Site: left upper arm; bp 08:00 Follow up: Response: No adverse reaction jd3 07:15 Drug: Pepcid (famotidine) 20 mg Route: IVP; Site: left upper arm; bp 08:00 Follow up: Response: No adverse reaction jd3 07:15 Drug: morphine 4 mg Route: IVP; Site: left upper arm; bp 08:15 Follow up: Response: No adverse reaction; RASS: Alert and Calm (0) jd3 07:15 Drug: NS 0.9% 500 ml Route: IV; Rate: 125 ml/hr; Site: left upper arm; bp 08:04 Drug: hydrALAZINE 20 mg Route: IV; Rate: per protocol; Site: left upper arm; jd3 09:00 Follow up: Response: No adverse reaction; IV Status: Completed infusion jd3 08:39 Drug: Zofran (Ondansetron) 4 mg Route: IVP; Site: left upper arm; jd3 09:14 Follow up: Response: No adverse reaction jd3 10:29 Drug: Phenergan 12.5 mg Route: IVP; Site: left upper arm; jd3 11:25 Follow up: Response: No adverse reaction jd3 10:29 Drug: morphine 4 mg Route: IVP; Site: left upper arm; jd3 11:25 Follow up: Response: No adverse reaction; RASS: Alert and Calm (0) jd3 Disposition: 09/30/20 08:34 Hospitalization ordered by Chandler Bautista for Observation. Preliminary diagnosis are End stage renal disease - on HD, M,W,F, Anemia, unspecified, Chest pain, unspecified, Essential (primary) hypertension, Type 2 diabetes mellitus, Vomiting, Hyperkalemia, Cholelithiasis. - Bed requested for Telemetry/MedSurg (observation). - Status is Observation. jd3 - Condition is Stable. - Problem is new. - Symptoms have improved. Signatures: Dispatcher [employer] EDID Maribel Brownlee RN RN dw Anderson, Corey, MD MD cha Ballard, Brenda, RN RN bb Peyman Negron RN RN jd3 Peltier, Brian, RN RN bp Jose De Jesus Graf MD MD ma Kendall Espinoza RN RN sf Corrections: (The following items were deleted from the chart) 06:49 06:19 NS 0.9% 1000 ml IV at 1 bolus Per protocol; 1000 mL bolus ordered. ma2 ma2 07:26 06:19 Urine Dipstick-Ancillary ordered. ma2 bp 09:03 07:19 CORONAVIRUS+MR.LAB.BRZ ordered. EDID EDID 10:11 08:34 Hospitalization Ordered by Chandler Bautista for Observation. Preliminary diagnosis juan is End stage renal disease - on HD, M,W,F; Anemia, unspecified; Chest pain, unspecified; Essential (primary) hypertension; Type 2 diabetes mellitus; Vomiting; Hyperkalemia. Bed requested for Telemetry/MedSurg (observation). Status is Observation. Condition is Stable. Problem is new. Symptoms have improved. juan 11:51 10:11 09/30/2020 08:34 Hospitalization Ordered by Chandler Bautista for Observation. dw Preliminary diagnosis is End stage renal disease - on HD, M,W,F; Anemia, unspecified; Chest pain, unspecified; Essential (primary) hypertension; Type 2 diabetes mellitus; Vomiting; Hyperkalemia; Cholelithiasis. Bed requested for Telemetry/MedSurg (observation). Status is Observation. Condition is Stable. Problem is new. Symptoms have improved. juan 12:35 11:51 09/30/2020 08:34 Hospitalization Ordered by Chandler Bautista for Observation. jd3 Preliminary diagnosis is End stage renal disease - on HD, M,W,F; Anemia, unspecified; Chest pain, unspecified; Essential (primary) hypertension; Type 2 diabetes mellitus; Vomiting; Hyperkalemia; Cholelithiasis. Bed requested for Telemetry/MedSurg (observation). Status is Observation. Condition is Stable. Problem is new. Symptoms have improved. dw
[2020-09-30 08:48] LABS: Protime INR 0.99
--- NOTE | 2020-09-30 09:31 | RAD REPORT ---
EXAM DESCRIPTION: CT - Abdomen Pelvis Wo Contrast - 09/30/2020 9:17 am CLINICAL HISTORY: Abdominal pain COMPARISON: 2019 TECHNIQUE: Computed axial tomography of the abdomen and pelvis was obtained. IV and oral contrast we re not requested. All CT scans are performed using dose optimization technique as appropriate and may include automated exposure control or mA/KV adjustment according to patient size. FINDINGS: The evaluation of solid organs, vessels and bowel is limited secondary to the lack of con trast administration. The liver, pancreas, adrenals and kidneys appear grossly normal. Spleen measures 13 centimeters. Several gallstones. Gallbladder wall is not thickened. The appendix is normal. There is no evidence of diverticulitis. Small amount of free fluid likely not significant Minimal right pleural effusion. Vascular calcifications IMPRESSION: Cholelithiasis without evidence cholecystitis. Mild splenomegaly
--- NOTE | 2020-09-30 09:44 | RAD REPORT ---
EXAM DESCRIPTION: Nisha Single View09/30/2020 7:46 am CLINICAL HISTORY: Cough COMPARISON: June 2020 FINDINGS: The lungs appear clear of acute infiltrate. The heart is mildly enlarged IMPRESSION: No acute abnormalities displayed
[2020-09-30] MEDS ORDERED: ALBUMIN HUMAN 25% 50 ML IV PRN (10:15)
[2020-09-30] MEDS ORDERED: PROMETHAZINE INJ 25 MG/ML AMP ONE (10:43)
--- NOTE | 2020-09-30 10:48 | P.HP ---
Certification for Inpatient Patient admitted to: Observation With expected LOS: <2 Midnights Practitioner: I am a practitioner with admitting privileges, knowledge of patient current condition, hospital course, and medical plan of care. Services: Services provided to patient in accordance with Admission requirements found in Title 42 Section 412.3 of the Code of Federal Regulations Patient History Date of Service: 09/30/20 Reason for admission: Chest pressure, nausea and vomiting History of Present Illness: 39-year-old woman with a history of end-stage renal disease on hemodialysis, diabetes mellitus and hypertension was brought to the emergency department from dialysis center because of nausea and vomiting and diarrhea and chest pressure. Patient report history of intermittent nausea and vomit which became worse last night. She also reports intermittent chest pressure. She stated her partner told her she would stop breathing suddenly during sleep, workup and pant for breath. Patient denied any palpitation. She denied any cough. She may be experiencing orthopnea and PND from her partner's description. She also has a history of obstructive sleep apnea. Her blood pressure was severely elevated with systolic up to 207 in the ED. EKG demonstrated sinus tachycardia with nonspecific ST-T changes. Chest x-ray demonstrated no acute abnormality. Initial troponin is negative. Patient given IV hydralazine for severe blood pressure, IV Zosyn and Pepcid for the nausea and vomiting. She is hospitalized for further evaluation and management. Allergies zolpidem tartrate [From Ambien] Allergy (Intermediate, Verified 10/17/16 23:08) Itching/Hives/Rash codeine [Codeine] Allergy (Verified 10/17/16 23:08) Hives fluphenazine enanthate [From Prolixin] Allergy (Verified 10/17/16 23:08) ARM NUMBNESS fluphenazine HCl [From Prolixin] Allergy (Verified 10/17/16 23:08) ARM NUMBNESS guaifenesin [From Prolex D] Allergy (Verified 10/17/16 23:08) Hives lisinopril Allergy (Verified 04/21/17 10:26) Anaphylaxis Penicillins Allergy (Verified 10/17/16 23:08) Hives phenylephrine HCl [From Prolex D] Allergy (Verified 10/17/16 23:08) Hives nitrofurantoin Adverse Reaction (Verified 08/07/17 23:41) liver failure Home Medications: Calcium Acetate [Phoslo*] 2 cap PO TIDWM 03/05/20 Calcium Acetate [Phoslo*] 667 mg PO SNACKS 03/05/20 Divalproex Sodium [Divalproex Sodium ER] 500 mg PO BID 03/05/20 Linagliptin [Tradjenta] 5 mg PO DAILY 03/05/20 Sertraline [Zoloft*] 50 mg PO DAILY 03/05/20 Trazodone HCl 150 mg PO BEDTIME PRN PRN 03/05/20 buPROPion HCL [Bupropion Xl] 300 mg PO DAILY 03/05/20 glipiZIDE [Glipizide] 5 mg PO BID 03/05/20 Metoclopramide HCl [Reglan] 1 tab PO Q8HR 20 Days #60 tablet 03/06/20 Pantoprazole Sodium [Protonix] 1 tab PO DAILY 30 Days #30 tablet. 03/06/20 Gabapentin 1 tab PO BID 07/22/20 Metoprolol Succinate 50 mg PO DAILY 07/22/20 Pravastatin Sodium 1 tab PO DAILY 07/22/20 - Past Medical/Surgical History Diabetic: Yes -: DM Type 2 -: Seizure disorder -: Chronic renal disease -: DM Gastroparesis -: DM Neuropathy -: Insomnia -: Obesity -: JAYLA -: Hypertension -: Post traumatic stress disorder -: Schizoaffective disorder -: CHF, diastolic -: I/D of the right elbow -: 2 previous C-sections -: Tubal ligation Psychosocial/ Personal History: She is , she has 2 children, she does not work. - Family History Mother -: Hypertension, Diabetes, Cancer, Other (see notes) Notes: hypothyroid, asthma, breast cancer Father -: Diabetes, Cancer Notes: - stomach/ lung/ prostate cancer, diabetes - Social History Alcohol use: No CD- Drugs: No Caffeine use: Yes Review of Systems Other: Except as documented, all other systems reviewed and negative. Physical Examination - Physical Exam General: Alert, In no apparent distress, Oriented x3 HEENT: Atraumatic, Normocephalic, PERRLA, Mucous membr. moist/pink, EOMI, Sclerae nonicteric Neck: Supple, JVD not distended Respiratory: Clear to auscultation bilaterally, Normal air movement Cardiovascular: No edema, Regular rate/rhythm, Normal S1 S2, Other (Tachycardia) Gastrointestinal: Normal bowel sounds, Soft and benign, Non-distended, No tenderness Musculoskeletal: No swelling, No tenderness Integumentary: No rashes, No erythema Neurological: Normal speech, Normal strength at 5/5 x4 extr, Cranial nerves 3-12 intact - Studies Laboratory Data (last 24 hrs) 09/30/20 08:21: PT 11.4, INR 0.99 09/30/20 06:48: WBC 8.10, Hgb 8.5 L, Hct 26.1 L, Plt Count 155 09/30/20 06:48: Sodium 139, Potassium 5.3 H, BUN 46 H, Creatinine 8.20 H*, Glucose 144 H, Total Bilirubin 0.7, AST 14 L, ALT 11 L, Alkaline Phosphatase 62, Lipase 112 Microbiology Data (last 24 hrs): 09/30/20 07:06 Stool Stool Occult Blood (GAMALIEL) - Final MANAGER PRIVACY Assessment and Plan - Problems (Diagnosis) (1) Abdominal pain Onset Date: 08/03/16 Current Visit: No Status: Acute Qualifiers: Abdominal location: epigastric Qualified Code(s): R10.13 - Epigastric pain (2) Chest pain Onset Date: 08/09/17 Current Visit: No Status: Acute (3) ESRD (end stage renal disease) Current Visit: No Status: Acute (4) JAYLA (obstructive sleep apnea) Onset Date: 02/09/17 Current Visit: No Status: Chronic (5) Obesity Onset Date: 06/08/16 Current Visit: No Status: Chronic Qualifiers: Obesity type: unspecified obesity type (6) Severe hypertension Onset Date: 08/03/16 Current Visit: No Status: Chronic (7) Gastritis Current Visit: Yes Status: Acute (8) History of peptic ulcer disease Current Visit: Yes Status: Acute - Plan Place patient under observation. Continue to trend troponin. Given prior history of cardiomegaly and strong family history. Nuclear stress test will be done if troponin trend negative. Obtain echocardiogram. Cardiology consult pending test result. Will order IV Protonix and sucralfate for gastritis. Reglan IV for gastroparesis. Consulting nephrology for hemodialysis. Dr. Morin is aware of the consult. Aggressive blood pressure control. Resuming her home antihypertensives. Hydralazine IV p.r.n. for BP spikes. Dr. Morin to assist with blood pressure management. She will need a sleep study as an outpatient to assess her obstructive sleep apnea. - Advance Directives Does patient have a Living Will: No Does patient have a Durable POA for Healthcare: No
[2020-09-30] MEDS ORDERED: ONDANSETRON 4 MG/2 ML VIAL IV PRN (13:15)
[2020-09-30] MEDS ORDERED: METOCLOPRAMIDE 10 MG/2mL INJ IV PRN (13:15)
[2020-09-30] MEDS: SUCRALFATE 1GM/10ML UCUP PO SCH ×3 (13:15→20:40)
[2020-09-30] MEDS ORDERED: SODIUM CHLORIDE 0.9% 10ML INJ IV PRN (13:15)
[2020-09-30] MEDS: INSULIN -REGULAR HUMAN 50 UNIT/0.5 ML ML SQ SCH ×3 (13:15→20:40)
[2020-09-30] MEDS ORDERED: DIPHENHYDRAMINE 25 MG TAB/CAP PO PRN (14:09)
--- NOTE | 2020-09-30 17:47 | P.CNS ---
Date of Consult: 09/30/20 Reason for Consult: ESRD Requesting Physician: zabrina hollis Chief Complaint: Chest pressure, nausea and vomiting History of Present Illness: 39-year-old woman with a history of end-stage renal disease on hemodialysis, diabetes mellitus and hypertension was brought to the emergency department from dialysis center because of nausea and vomiting and diarrhea and chest pressure. Patient report history of intermittent nausea and vomit which became worse last night. She also reports intermittent chest pressure. She stated her partner told her she would stop breathing suddenly during sleep, workup and pant for breath. Patient denied any palpitation. She denied any cough. She may be experiencing orthopnea and PND from her partner's description. She also has a history of obstructive sleep apnea. Her blood pressure was severely elevated with systolic up to 207 in the ED. EKG demonstrated sinus tachycardia with nonspecific ST-T changes. Chest x-ray demonstrated no acute abnormality. Initial troponin is negative. Patient given IV hydralazine for severe blood pressure, IV Zosyn and Pepcid for the nausea and vomiting. She is hospitalized for further evaluation and management. 07:00 This 39 yrs old Female presents to ER via Ambulatory with complaints of ma2 Vomiting/Diarrhea. 07:00 The patient presents to the emergency department with nausea, vomiting, diarrhea. ma2 Onset: The symptoms/episode began/occurred gradually, 2 day(s) ago. Associated signs and symptoms: Pertinent negatives: anorexia, diarrhea, flatulence, hematuria. Severity of symptoms: At their worst the symptoms were moderate in the emergency department the symptoms are unchanged. The patient has experienced similar episodes in the past Allergies zolpidem tartrate [From Ambien] Allergy (Intermediate, Verified 10/17/16 23:08) Itching/Hives/Rash codeine [Codeine] Allergy (Verified 10/17/16 23:08) Hives fluphenazine enanthate [From Prolixin] Allergy (Verified 10/17/16 23:08) ARM NUMBNESS fluphenazine HCl [From Prolixin] Allergy (Verified 10/17/16 23:08) ARM NUMBNESS guaifenesin [From Prolex D] Allergy (Verified 10/17/16 23:08) Hives lisinopril Allergy (Verified 04/21/17 10:26) Anaphylaxis Penicillins Allergy (Verified 10/17/16 23:08) Hives phenylephrine HCl [From Prolex D] Allergy (Verified 10/17/16 23:08) Hives nitrofurantoin Adverse Reaction (Verified 08/07/17 23:41) liver failure Home medications list reviewed: Yes Home Medications: Calcium Acetate [Phoslo*] 2 cap PO TIDWM 03/05/20 Calcium Acetate [Phoslo*] 667 mg PO SNACKS 03/05/20 Divalproex Sodium [Divalproex Sodium ER] 500 mg PO BID 03/05/20 Linagliptin [Tradjenta] 5 mg PO DAILY 03/05/20 Sertraline [Zoloft*] 50 mg PO DAILY 03/05/20 Trazodone HCl 150 mg PO BEDTIME PRN PRN 03/05/20 buPROPion HCL [Bupropion Xl] 300 mg PO DAILY 03/05/20 Pantoprazole Sodium [Protonix] 1 tab PO DAILY 30 Days #30 tablet. 03/06/20 Gabapentin 1 tab PO BID 07/22/20 Metoprolol Succinate 25 mg PO DAILY 07/22/20 Pravastatin Sodium 1 tab PO DAILY 07/22/20 Doxazosin [Cardura] 4 mg PO BEDTIME 09/30/20 Folic Acid/Vit B Complex and C [Dialyvite 800 Chewable Wafer] 1 tab PO DAILY 09/30/20 Furosemide [Lasix] 40 mg PO DAILY 09/30/20 - Past Medical/Surgical History Diabetic: Yes -: DM Type 2 -: Seizure disorder -: Chronic renal disease -: DM Gastroparesis -: DM Neuropathy -: Insomnia -: Obesity -: JAYLA -: Hypertension -: Post traumatic stress disorder -: Schizoaffective disorder -: CHF, diastolic -: I/D of the right elbow -: 2 previous C-sections -: Tubal ligation Psychosocial/ Personal History: She is , she has 2 children, she does not work. - Family History Mother Medical History: Hypertension, Diabetes, Cancer, Other (see notes) Notes: hypothyroid, asthma, breast cancer Father Medical History: Diabetes, Cancer Notes: - stomach/ lung/ prostate cancer, diabetes - Social History Smoking Status: Current every day smoker Alcohol use: No CD- Drugs: No Caffeine use: Yes Place of Residence: Home Review of Systems 10-point ROS is otherwise unremarkable General: Weakness, Malaise Respiratory: SOB with Excertion Cardiovascular: Chest Pain Gastrointestinal: Nausea, Vomiting, Diarrhea Neurological: Weakness Physical Examination Temp Pulse Resp BP Pulse Ox 98.2 F 88 16 172/81 H 100 09/30/20 16:00 09/30/20 16:00 09/30/20 16:00 09/30/20 16:00 09/30/20 16:00 General: Oriented x3, Cooperative HEENT: Atraumatic Neck: Supple Respiratory: Clear to auscultation bilaterally Cardiovascular: No edema, Regular rate/rhythm Gastrointestinal: Soft and benign, Non-distended Musculoskeletal: No clubbing, No contractures Integumentary: No rashes, No cyanosis Neurological: Normal speech Laboratory Data (last 24 hrs) 09/30/20 08:21: PT 11.4, INR 0.99 09/30/20 06:48: WBC 8.10, Hgb 8.5 L, Hct 26.1 L, Plt Count 155 09/30/20 06:48: Sodium 139, Potassium 5.3 H, BUN 46 H, Creatinine 8.20 H*, Glucose 144 H, Total Bilirubin 0.7, AST 14 L, ALT 11 L, Alkaline Phosphatase 62, Lipase 112 Imagings Data: EXAM DESCRIPTION: CT - Abdomen Pelvis Wo Contrast - 09/30/2020 9:17 am CLINICAL HISTORY: Abdominal pain COMPARISON: 2019 TECHNIQUE: Computed axial tomography of the abdomen and pelvis was obtained. IV and oral contrast were not requested. All CT scans are performed using dose optimization technique as appropriate and may include automated exposure control or mA/KV adjustment according to patient size. FINDINGS: The evaluation of solid organs, vessels and bowel is limited secondary to the lack of contrast administration. The liver, pancreas, adrenals and kidneys appear grossly normal. Spleen measures 13 centimeters. Several gallstones. Gallbladder wall is not thickened. The appendix is normal. There is no evidence of diverticulitis. Small amount of free fluid likely not significant Minimal right pleural effusion. Vascular calcifications IMPRESSION: Cholelithiasis without evidence cholecystitis. Mild splenomegaly EXAM DESCRIPTION: RADChest Single View09/30/2020 7:46 am CLINICAL HISTORY: Cough COMPARISON: June 2020 FINDINGS: The lungs appear clear of acute infiltrate. The heart is mildly enlarged IMPRESSION: No acute abnormalities displayed Conclusions/Impression: A/P ESRD -Acute HD ordered Hyperkalemia -Acute HD ordered HTN with CKD/ CHF -Restart Metoprolol Diastolic CHF, chronic -Acute HD ordered. -Low sodium diet DM II with CKD, Polyneuropathy and Gastroparesis -RISS -Reglan prn Severe malnutrition -Encourage nutrition -Give IV albumin with HD Anemia in CKD -Monitor H&H DUSTIN/ Secondary HyperPTH -Start Calcitriol Thank you kindly for the consultation. Case reviewed with Dr. Hollis
[2020-09-30 18:10] VITALS: BMI 31.2
[2020-09-30] MEDS: HEPARIN 5000 UNIT/ML 1 ML VIAL SQ SCH (18:25)
[2020-09-30] MEDS: PANTOPRAZOLE 40 MG INJ IVP SCH (20:41)
[2020-10-01] MEDS: HEPARIN 5000 UNIT/ML 1 ML VIAL SQ SCH ×3 (00:42→17:04)
[2020-10-01] MEDS ORDERED: D50W 25 GM/50 ML SYRINGE IV PRN (00:58)
[2020-10-01] MEDS ORDERED: INSULIN -REGULAR HUMAN 50 UNIT/0.5 ML ML SQ SCH (01:00)
[2020-10-01 05:42] LABS: Absolute Lymphocytes (CBC) 1.1 K/uL (0.7-4.9); Basophils % 0.8 % (0-1.3); Hematocrit 22.3 % (36.0-45.0); Lymphocytes % 22.8 % (15.3-44.8); MPV 10.8 fL (7.6-11.3); RBC Red Blood Cell Count 2.42 M/uL (3.86-4.86)
[2020-10-01 06:07] LABS: Potassium 4.8 mmol/L (3.5-5.1); Thyroid Stimulating Hormone 2.99 uIU/mL (0.360-3.740)
[2020-10-01] MEDS: SUCRALFATE 1GM/10ML UCUP PO SCH ×3 (07:30→16:30)
[2020-10-01] MEDS: INSULIN -REGULAR HUMAN 50 UNIT/0.5 ML ML SQ SCH ×3 (07:30→16:30)
[2020-10-01] MEDS ORDERED: REGADENOSON 0.4 MG/5 ML SYR IV ONE (08:25)
[2020-10-01] MEDS ORDERED: EPOETIN ALFA 10,000 UNIT/ML VIAL SQ ONE (08:30)
[2020-10-01] MEDS: PANTOPRAZOLE 40 MG INJ IVP SCH (09:00)
--- NOTE | 2020-10-01 09:37 | RAD REPORT ---
EXAM DESCRIPTION: NM - Rest Stress Cardiac Imaging - 10/01/2020 9:28 am CLINICAL HISTORY: Recurrent chest pressure Chest pain. COMPARISON: Rest Stress Cardiac Imaging dated 10/14/2016 TECHNIQUE: The patient was administered approximately 10mCi of Tc 99m Sestamibi prior to resting SPE CT imaging of the heart. The patient was then administered approximately 30 mCi of Tc 99m Sestamibi f ollowing exercise or pharmacologic stress. Multiplanar SPECT images were reviewed. FINDINGS: No stress induced ischemic defect is seen to suggest stress induced ischemia. No fixed def ect is seen to suggest hibernating myocardium or scarred myocardium. The end diastolic volume is 115 ml, the end systolic volume is 50 ml, and the ejection fraction is 57 %. IMPRESSION: No stress induced ischemia.
--- NOTE | 2020-10-01 09:42 | RAD REPORT ---
EXAM DESCRIPTION: US - Abdomen Exam Limited - 10/01/2020 9:33 am CLINICAL HISTORY: R/o Acute cholecystitis Right upper quadrant abdominal pain COMPARISON: Abdomen Exam Limited dated 01/11/2017 FINDINGS: The gallbladder demonstrates small shadowing gallstones. No pericholecystic fluid or gallb ladder wall thickening. The common bile duct is normal measuring 4 mm. The liver demonstrates no findings of intrahepatic biliary dilatation. IMPRESSION: Cholelithiasis.
[2020-10-01] MEDS ORDERED: MORPHINE 2 MG/ML SYR IV PRN (09:57)
[2020-10-01] MEDS ORDERED: METOPROLOL XL 25 MG TAB PO SCH (10:00)
[2020-10-01 10:31] LABS: Hematocrit 26.5 % (36.0-45.0)
[2020-10-01 10:51] VITALS: O2SAT 100
[2020-10-01] MEDS: SEVELAMER CARBONATE 800 MG TABLET PO SCH ×2 (11:38→17:06)
[2020-10-01] MEDS: TRAMADOL HCL 50 MG TAB PO PRN ×2 (11:38→17:05)
[2020-10-01] MEDS ORDERED: D50W 25 GM/50 ML VIAL IV PRN (14:00)
[2020-10-01] MEDS ORDERED: HYDRALAZINE HCL 20 MG/ML VIAL IV PRN (14:55)
--- NOTE | 2020-10-01 15:04 | P.PN ---
Subjective Date of Service: 10/01/20 Chief Complaint: Chest pressure, nausea and vomiting Subjective: Worsening (pt reports n/v overnight, worsening LUQ / Epigastric pain. Hgb down <8.0 this morning, no obvious signs of bleeding. s/p dialysis yesterday. Had severe itching after receiving morphine last night) Review of Systems 10-point ROS is otherwise unremarkable Physical Examination - Vital Signs Temperature: 97.6 F Blood Pressure: 180/85 Pulse: 85 Respirations: 16 Pulse Ox (%): 100 Assessment & Plan Physician Review Additional Text: Physical Exam General: Alert, mild distress HEENT: Normal conjunctiva, sclerae anicteric Respiratory: Clear to auscultation bilaterally, Normal air movement Cardiovascular: Regular rate/rhythm, Normal S1 S2, no murmur Gastrointestinal: Soft, mild tenderness in the epigastric/LUQ, no rebound Ext: No swelling, No tenderness Neurological: Normal speech, Normal strength Problem list Epigastric abdominal pain Chest pain ESRD on hemodialysis JAYLA Obesity Hypertension Gastritis History of peptic ulcer disease -continues with nausea/vomiting, and abdominal pain -seems to be due to a chronic gastroparesis and gastritis -has not seen GI in over a year -hemoglobin dropped this morning, concern for upper GI bleed, but will repeat H/ H, transfuse to maintain hemoglobin greater than 8.0 -hemoccults pending -GI consulted -troponin remained negative, patient to have stress test and echocardiogram done today, cardiology consulted, suspect this is all stomach related and not truly cardiac in nature -continue IV Protonix and sucralfate -continue Reglan for gastroparesis -nephrology consulted for hemodialysis, blood pressure control -resumed home antihypertensive Dispo: pending further eval as noted above, anticipate dc home tomorrow Time Spent Managing Pts Care (In Minutes): 40
[2020-10-01 15:56] VITALS: BP 147/67; TEMP 98
--- NOTE | 2020-10-01 17:40 | P.DS ---
Admission Date: 09/30/20 Discharge Date: 10/01/20 Disposition: ROUTINE DISCHARGE Discharge Condition: GOOD Reason for Admission: Chest pressure, nausea and vomiting Consultations: Nephrology - Dr. Morin Cardiology - Dr. Hogan Procedures: CXR (09/30): The lungs appear clear of acute infiltrate. The heart is mildly enlarged CT Abd/Pelvis (09/30): Cholelithiasis without evidence cholecystitis. Mild splenomegaly (13cm) Abd U/S (09/30): gallbladder demonstrates small shadowing gallstones. No pericholecystic fluid or gallbladder wall thickening. The common bile duct is normal measuring 4 mm. liver demonstrates no findings of intrahepatic biliary dilatation. Cardiac Stress Test (10/01): No stress induced ischemia. EF: 57% Problem list Epigastric abdominal pain due to gastritis Chest pain ESRD on hemodialysis JAYLA Obesity Hypertension History of Gastritis History of peptic ulcer disease Brief History of Present Illness: 39-year-old woman with a history of end-stage renal disease on hemodialysis, diabetes mellitus and hypertension was brought to the emergency department from dialysis center because of nausea and vomiting and diarrhea and chest pressure. Patient report history of intermittent nausea and vomit which became worse last night. She also reports intermittent chest pressure. She stated her partner told her she would stop breathing suddenly during sleep, workup and pant for breath. Patient denied any palpitation. She denied any cough. She may be experiencing orthopnea and PND from her partner's description. She also has a history of obstructive sleep apnea. Her blood pressure was severely elevated with systolic up to 207 in the ED. EKG demonstrated sinus tachycardia with nonspecific ST-T changes. Chest x-ray demonstrated no acute abnormality. Initial troponin is negative. Patient given IV hydralazine for severe blood pressure, IV Zosyn and Pepcid for the nausea and vomiting. She is hospitalized for further evaluation and management. Hospital Course: Patient's diet was slowly advanced. She was treated with IV reglan, protonix, and sucralfate. She had slow improvement in her symptoms and complete resolution on day of discharge. GI was consulted (Dr. Mao), who recommended patient f/u with her GI physician (Dr. Gregoroi), and to consider f/u with a GI motility specialist in [place] for her chronic gastroparesis. Her chest pain was likely due to her gastritis. It was evaluated by EKG, troponins, and cardiac stress test which were all normal/negative. Her hemoglobin was stable in mid-high 8s, however on morning of discharge it was noted to be down to 7.4. Patient had no evidence of bleeding. This was repeated and resulted at 8.7. She did not require any blood transfusions. She was discharged home with prescriptions/refills for zofran and reglan. Vital Signs/Physical Exam: Physical Exam General: Alert, NAD HEENT: Normal conjunctiva, sclerae anicteric Respiratory: Clear to auscultation bilaterally, Normal air movement Cardiovascular: Regular rate/rhythm, Normal S1 S2, no murmur Gastrointestinal: Soft, mild tenderness in the epigastric/LUQ, no rebound Ext: No swelling, No tenderness Neurological: Normal speech, Normal strength Temp Pulse Resp BP Pulse Ox 98 F 73 16 147/67 H 95 10/01/20 15:54 10/01/20 15:54 10/01/20 17:05 10/01/20 15:54 10/01/20 17:05 Laboratory Data at Discharge: WBC 5.00 K/uL (4.3-10.9) D 10/01/20 05:24 Hgb 8.7 g/dL (12.0-15.0) L 10/01/20 10:12 Hct 26.5 % (36.0-45.0) L D 10/01/20 10:12 Plt Count 142 K/uL (152-406) L 10/01/20 05:24 PT 11.4 SECONDS (9.5-12.5) 09/30/20 08:21 INR 0.99 09/30/20 08:21 Sodium 138 mmol/L (136-145) 10/01/20 05:24 Potassium 4.8 mmol/L (3.5-5.1) 10/01/20 05:24 BUN 21 mg/dL (7-18) H D 10/01/20 05:24 Creatinine 4.75 mg/dL (0.55-1.3) H D 10/01/20 05:24 Glucose 80 mg/dL (74-106) 10/01/20 05:24 Phosphorus 5.0 mg/dL (2.5-4.9) H 10/01/20 05:24 Magnesium 2.0 mg/dL (1.8-2.4) 10/01/20 05:24 Total Bilirubin 0.7 mg/dL (0.2-1.0) 09/30/20 06:48 AST 14 U/L (15-37) L 09/30/20 06:48 ALT 11 U/L (12-78) L 09/30/20 06:48 Alkaline Phosphatase 62 U/L (45-117) 09/30/20 06:48 Troponin I < 0.02 ng/mL (0.0-0.045) 10/01/20 00:36 Triglycerides 91 mg/dL (<150) 10/01/20 05:24 Cholesterol 114 mg/dL (<200) 10/01/20 05:24 HDL Cholesterol 29 mg/dL (40-60) L 10/01/20 05:24 Cholesterol/HDL Ratio 3.93 10/01/20 05:24 Lipase 112 U/L (73-393) 09/30/20 06:48 Home Medications: Calcium Acetate [Phoslo*] 2 cap PO TIDWM 03/05/20 Calcium Acetate [Phoslo*] 667 mg PO SNACKS 03/05/20 Divalproex Sodium [Divalproex Sodium ER] 500 mg PO BID 03/05/20 Linagliptin [Tradjenta] 5 mg PO DAILY 03/05/20 Sertraline [Zoloft*] 50 mg PO DAILY 03/05/20 Trazodone HCl 150 mg PO BEDTIME PRN PRN 03/05/20 buPROPion HCL [Bupropion Xl] 300 mg PO DAILY 03/05/20 Pantoprazole Sodium [Protonix] 1 tab PO DAILY 30 Days #30 tablet. 03/06/20 Gabapentin 1 tab PO BID 07/22/20 Metoprolol Succinate 25 mg PO DAILY 07/22/20 Pravastatin Sodium 1 tab PO DAILY 07/22/20 Doxazosin [Cardura*] 4 mg PO BEDTIME 09/30/20 Folic Acid/Vit B Complex and C [Dialyvite 800 Chewable Wafer] 1 tab PO DAILY 09/30/20 Furosemide [Lasix*] 40 mg PO DAILY 09/30/20 Metoclopramide [Reglan] 5 ml PO TID 30 Days #45 ucup 10/01/20 Ondansetron [Zofran] 4 mg PO Q8H PRN 14 Days #30 tab 10/01/20 New Medications: Metoclopramide [Reglan] 5 ml PO TID 30 Days #45 ucup Ondansetron [Zofran] 4 mg PO Q8H PRN 14 Days #30 tab PRN Reason: Nausea / Vomiting Physician Discharge Instructions: Your nausea/vomiting was due to your gastroparesis, worsened by missing a few of your doses of medications. This likely caused some of the abdomen / chest discomfort. Your chest pain was evaluated by EKG, echocardiogram, stress test, and troponins, which were all normal. You were also seen by Dr. Mao, who recommended you follow up with Dr. Gregorio, and follow up with a GI motility specialist, Dr. Madeline Fletcher, at [facility] to further discuss possible gastric pacemaker for your gastroparesis. You are discharged with refills for your Reglan and zofran. Continue your other medications as previously prescribed. Your hemoglobin remained stable in the mid 8s and you did not need a blood transfusion. Diet: Renal (small meals) Activity: Ad monique Followup: Jose Miguel Morin DO [ACTIVE - CAN ADMIT] - (call to schedule appointment) NONE,NONE [Primary Care Provider] - Esa Gregorio MD [ASSOCIATE-ACTIVE - CAN ADMIT] - (call to schedule appointment) Time spent managing pt's care (in minutes): 35
--- NOTE | 2020-10-01 20:25 | P.PN ---
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 Waxing and waning nausea. No acute events overnight. Vitals, medications, blood work and imaging reviewed in the chart. General: Oriented x3, Cooperative HEENT: Atraumatic Neck: Supple Respiratory: Clear to auscultation bilaterally Cardiovascular: No edema, Regular rate/rhythm Gastrointestinal: Soft and benign, Non-distended Musculoskeletal: No clubbing, No contractures Integumentary: No rashes, No cyanosis Neurological: Normal speech Laboratory Data (last 24 hrs) 09/30/20 08:21: PT 11.4, INR 0.99 09/30/20 06:48: WBC 8.10, Hgb 8.5 L, Hct 26.1 L, Plt Count 155 09/30/20 06:48: Sodium 139, Potassium 5.3 H, BUN 46 H, Creatinine 8.20 H*, Glucose 144 H, Total Bilirubin 0.7, AST 14 L, ALT 11 L, Alkaline Phosphatase 62, Lipase 112 Imagings Data: EXAM DESCRIPTION: CT - Abdomen Pelvis Wo Contrast - 09/30/2020 9:17 am CLINICAL HISTORY: Abdominal pain COMPARISON: 2019 TECHNIQUE: Computed axial tomography of the abdomen and pelvis was obtained. IV and oral contrast were not requested. All CT scans are performed using dose optimization technique as appropriate and may include automated exposure control or mA/KV adjustment according to patient size. FINDINGS: The evaluation of solid organs, vessels and bowel is limited secondary to the lack of contrast administration. The liver, pancreas, adrenals and kidneys appear grossly normal. Spleen measures 13 centimeters. Several gallstones. Gallbladder wall is not thickened. The appendix is normal. There is no evidence of diverticulitis. Small amount of free fluid likely not significant Minimal right pleural effusion. Vascular calcifications IMPRESSION: Cholelithiasis without evidence cholecystitis. Mild splenomegaly EXAM DESCRIPTION: Nisha Single View09/30/2020 7:46 am CLINICAL HISTORY: Cough COMPARISON: June 2020 FINDINGS: The lungs appear clear of acute infiltrate. The heart is mildly enlarged IMPRESSION: No acute abnormalities displayed Conclusions/Impression: A/P ESRD -Next HD Wednesday Hyperkalemia -HD TIW HTN with CKD/ CHF -Continue Metoprolol Diastolic CHF, chronic -Acute HD ordered. -Low sodium diet DM II with CKD, Polyneuropathy and Gastroparesis -RISS -Reglan prn Severe malnutrition -Encourage nutrition -Give IV albumin with HD PRN Anemia in CKD -Transfuse PRBC due to worsening anemia DUSTIN/ Secondary HyperPTH -Continue Calcitriol Case reviewed with Dr. Stallworth
[2020-10-01] MEDS ORDERED: DOXAZOSIN 4 MG TAB PO SCH (21:00)
[2020-10-01] MEDS ORDERED: ATORVASTATIN 10 MG TAB PO SCH (21:00)
--- NOTE | 2020-10-02 08:27 | ECHO ---
HEIGHT: 5 ft 2 in WEIGHT: 165 lb 9.6 oz DATE OF STUDY: 10/01/[address]: zabrina hollis 2-DIMENSIONAL: YES M.MODE: YES DOPPLER: YES COLOR FLOW: YES TDS: NO PORTABLE: NO DEFINITY: NO BUBBLE STUDY: NO DIAGNOSIS: CHEST PAIN CARDIAC HISTORY: CATHERIZATION: NO SURGERY: NO PROSTHETIC VALVE: NO PACEMAKER: NO MEASUREMENTS (cm) DIASTOLIC (NORMALS) SYSTOLIC (NORMALS) IVSd 1.3 (0.6-1.2) LA Diam 3.2 (1.9-4.0) LVEF 68% LVIDd 3.8 (3.5-5.7) LVIDs 2.4 (2.0-3.5) %FS 37% LVPWd 1.3 (0.6-1.2) Ao Diam 2.4 (2.0-3.7) 2 DIMENSIONAL ASSESSMENT: RIGHT ATRIUM: NORMAL LEFT ATRIUM: NORMAL RIGHT VENTRICLE: NORMAL LEFT VENTRICLE: NORMAL TRICUSPID VALVE: NORMAL MITRAL VALVE: NORMAL PULMONIC VALVE: NORMAL AORTIC VALVE: NORMAL PERICARDIAL EFFUSION: NONE AORTIC ROOT: NORMAL LEFT VENTRICULAR WALL MOTION: NORMAL DOPPLER/COLOR FLOW: NORMAL COMMENTS: NORMAL 2D ECHOCARDIOGRAM WITH DOPPLER. NO WALL MOTION ABNORMALITY. NO EFFUSION. TECHNOLOGIST: Arielle OVALLE
--- NOTE | 2020-10-02 08:52 | TREADPHA ---
DX: CHEST PAIN Date of Study: 10/01/2020 Ht: 5' 2 " Wt: 165 lb 9.6 oz Consulting Physician: SALLIE MEDICATIONS: DEXTROSE, RETACRIT, REGLAN, PROTONIX, RENVELA, CARAFATE HISTORY: HYPERTENSION, NON INSUILIN DEPENDENT DIABETES MELLITUS AND END STAGE RENAL DISEASE. PHYSICIAL EXAMINATION: RESTING B.P.: 186/100 RESTING H.R.: 76 RESTING EKG: SINUS RHYTHM. PROTOCOL: LEXISCAN EXERCISE TIME: 3:30 B.P. AT PEAK STRESS: 161/87 IMPRESSION: LEXISCAN STRESS TEST PERFORMED. CARDIOLITE INJECTED PER PROTOCOL. SEE NUCLEAR MEDICINE REPORT. NO SUPRAVENTRICULAR TACHYCARDIA. NO VENTRICULAR TACHYCARDIA. NO ARRHYTHMIAS NOTED.
[2020-10-02] MEDS ORDERED: SERTRALINE HCL 50 MG TAB PO SCH (09:00)
--- NOTE | 2020-10-03 12:14 | CON ---
Date of Consultation: 10/01/2020 Reason For Consultation: Chest pain. History Of Present Illness: Ms. Zaldivar is a 39-year-old woman with history of chronic kidney disease, cyclic vomiting syndrome, diabetes, dialysis Wednesday, Wednesday, Wednesday, encephalopathy, gastroparesi s, liver failure, peripheral neuropathy, seizure disorder, hypertension. She has dialysis fistula on the right arm. She takes many medications. Came in with atypical chest pain, sharp, stabbing. Den ied any nausea, vomiting, diaphoresis. Pain was not exertional. Did not have any radiation. Her wo rkup so far from troponin standpoint is negative. Allergies: SHE IS ALLERGIC TO AMBIEN, CODEINE, DEMEROL, GUAIFENESIN, LISINOPRIL, NITROFURANTOIN, PEN ICILLIN, PROLIXIN, ZOLPIDEM. Medications: At home include sertraline, insulin, metoprolol, pravastatin, Lantus, hydralazine, doxa zosin, tramadol. She takes Keppra. Review of Systems: Negative. Social History: Negative. Family History: Noncontributory. Physical Examination: Vital Signs: Her blood pressure was when I saw 147/67. Otherwise, vital signs stable, afebrile. HEENT: Negative. Neck: Supple without any bruit, lymphadenopathy, JVD, or thyromegaly. Chest: Clear. Cardiac: Revealed an S4 gallop. Regular rhythm and rate. Abdomen: Benign. Extremities: Revealed no clubbing, cyanosis, or edema. Diagnostic Data: Showed a creatinine of 8.20. Her hemoglobin was 7.4. Her troponin was negative. Her lipid profile was normal. She was COVID negative. Impression And Plan: Chest pain, atypical in a patient with many cardiac risk factors. She has hype rtension, diabetes, end-stage renal disease. An echocardiogram and a stress test were ordered by Dr. Stallworth. We will see what these show before making further decisions. Her other problems seem to be stable at this point. NB/MODL Voice ID: [id number] Report ID: [id number]
== END 2020-10-01 18:42 | disposition home or self-care (01) ==
LOC: ER 06:11 → ERHOLD 10:20 → 2ND 13:12
PROVIDERS: ADMIT Internal Medicine; ATTEND Hospitalist
DX: K29.70 Gastritis, unspecified, without bleeding (principal); I13.2 Hypertensive heart and chronic kidney disease with heart failure and with stage 5 chronic kidney disease, or end stage renal disease; N18.6 End stage renal disease; Z99.2 Dependence on renal dialysis; I50.32 Chronic diastolic (congestive) heart failure; E87.5 Hyperkalemia; Z20.822 Contact with and (suspected) exposure to COVID-19; E11.22 Type 2 diabetes mellitus with diabetic chronic kidney disease; E11.43 Type 2 diabetes mellitus with diabetic autonomic (poly)neuropathy; K31.84 Gastroparesis; E11.42 Type 2 diabetes mellitus with diabetic polyneuropathy; E43 Unspecified severe protein-calorie malnutrition; D63.1 Anemia in chronic kidney disease; N25.81 Secondary hyperparathyroidism of renal origin; G47.33 Obstructive sleep apnea (adult) (pediatric); E66.9 Obesity, unspecified; F43.10 Post-traumatic stress disorder, unspecified; F25.9 Schizoaffective disorder, unspecified; F17.200 Nicotine dependence, unspecified, uncomplicated; Z68.30 Body mass index [BMI] 30.0-30.9, adult
CPT/HCPCS: 96365; 93005; 93017; 93306; 85025 ×2; 80048 ×2; 36415; 82140; 83735; 84703; 84100; 85610; 80061; 82947 ×8; 80076; 80164; 84443; 85018; 85014; 84484 ×5; 83690; 74176; 71045; 76705; 94760 ×4; 78452; 96375; 99285; U0003; J0360; J2765; J2550; J1644 ×5; C9113 ×2; J2785; Q5105; P9047 ×2; J7040; J2405 ×2; A9500; G0378

== ENCOUNTER 2020-10-10 05:29 | Emergency (ER) | payer OTHER ==
--- OUTSIDE RECORDS SUMMARY | 2020-10-10 05:35 | XMS REPORT | Continuity of Care Document ---
:1980 Author Organization [facility] t Address [address] [place] [address] Care Team Providers Name Role Phone Sharpless [...] Details Category Date Date Treatment Clinician Date Liver Liver Disease Active [facility] failure[facility], [facility] acute [facility] 00 [facility] SANJUANA (acute SANJUANA (acute Disease Active [facility] kidney kidney 16 [facility] - injury) injury) 00:00: Medical 00 Center CKD CKD Disease Active [facility] (chronic (chronic 01-03 [facility] - kidney kidney 00:00: Medical disease) disease) 00 Center Acute Acute Disease Active [facility] encephalop encephalop 01-03 Pati kes - athy athy 00:00: Medical 00 [place] Ulcer of Ulcer of Disease [facility] toe [facility] toe of [facility] - left foot left foot 00:00: 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 [place] Allergies, Adverse Reactions, Alerts Allergy Allergy Status Severity Reaction(s) Onset Inactive Treating Comm ents Source Name Type Date Date Clinician Zolpidem Drug Active Other (See confusion [facility] Allergy Comments) 01-03 [facility] - 00:[facility]: Medical 00 [place] Lisinopr Drug Active Other (See Unable to [facility] il Allergy Comments) 01-03 remember Luke s - 00:00: Medical 00 [place] Nitrofur Drug Active Anaphylaxis Liver [facility] antoin Allergy 01-03 failure [facility] - Monohyd/ 00:00: Medical M-Cryst 00 [place] Penicill Drug Active Shortness Of [facility] ins Allergy Breath 01-03 [facility] - 00:[facility]: Medical 00 [place] Guaifene Drug Active Other (See numbness [facility] sin Allergy Comments) 01-03 [facility] - 00:00: Medical 00 [place] Social History Social Habit Start Date Stop Date Quantity Comments Source Sex Assigned At MINERVA Lomeli - [facility] Cigarettes smoked 2017-12-17 2017-12-17 MINERVA Paul - current (pack per 00:00:00 00:00:00 [facility] Center day) - Reported Cigarette 2017-12-17 2017-12-17 MINERVA Paul - pack-years 00:00:00 00:00:00 [facility] Alcohol intake 2017-12-17 2017-12-17 Current MINERVA Desouzak es - 00:00:00 00:00:00 non-drinker of Medical Ce nter alcohol (finding) Tobacco Comment 2017-01-03 2017-01-03 patient stated MINERVA nam Lujazmin - 00:00:00 00:00:00 she stopped [address] month ago. History of tobacco 2016-12-04 Smoker MINERVA Paul - use 00:00:00 [facility] Smoking Status Start Date Stop Date Source Former smoker 2017-12-17 00:00:00 2017-12-17 00:00:00 [facility] - [facility] Medications Ordered Filled Start Stop Current Ordering Indication Dosage Frequency Signature Comments Components Source Medication Medication Date Date Medication? Clinician (SIG) Name Name divalproex Yes depression 500mg QD Take [address] [facility] (DEPAKOTE) 7-20 associated mg by Pati kes - 500 MG EC 15:20: with mouth Medical tablet 59 bipolar daily. Center disorder ondansetron Yes 4mg Take 4 mg C HI [...] Medica l 59 Center hydrALAZINE Yes 100mg [id number] Take [address] (APRESOLINE 7-20 [id number] mg by L ukes - ) 100 MG 15:20: 3D mouth 3 Medica l tablet 59 (three) Center times daily. magnesium 2017-0 Yes 400mg QD Take [address] oxide 7-20 mg by [facility] - (MAG-OX) 15:20: mouth Medical 400 mg 59 daily. Center tablet metoclopram 2017-0 Yes 10mg Q.[id number] Take [address] gadiel HCl 7-20 [id number] by mouth 3 [facility] - (REGLAN) 10 [...] nter injection morning Use as directed . Procedures This patient has no known procedures. Encounters Start End Encounter Admission Attending Care Care Encounter Source Date/Time Date/Time Type Type Clinicians Facility Department ID 2020-09-24 2020-09-24 Refill Carlos [facility] [id number] 00:00:00 00:00:00 Jose Luis Sims [id number] [place] [id number] [place] [id number] [address] 2020-09-09 2020-09-09 Patient Daniel NYIMELDA [id number] 00:00:00 00:00:00 Outreach Earl [facility] [id number] [facility] [id number] PAVILLION [id number] 2020-07-23 2020-07-23 Office Black [facility] [id number] 13:31:20 14:37:36 Visit Deja [facility] [id number] [facility] [id number] PAVILLION [id number] 2020-01-25 2020-01-31 Inpatient 1 Rei Waldron [facility] [id number] 21:31:00 18:15:00 Rei Waldron [facility] 2016-07-23 2016-07-30 Outpatient Yaquelin [facility] [id number] 20:04:00 10:20:00 Luna 10 2016-06-10 2016-06-15 Outpatient Franck, [facility] [id number] 10:02:00 12:23:00 Joe Yan 09 2014-06-25 2014-06-26 Outpatient Courtney [facility] [id number] 23:25:00 09:14:00 Atul Sirisha Cem 2013-04-14 2013-04-15 Outpatient [facility] [id number] Memoria 21:04:00 01:45:00 Vin Bowie [address] [facility] 2013-04-14 2013-04-15 Outpatient [facility] [id number] Memoria 21:04:00 01:45:00 Vin Bowie [address] [facility] 2013-04-14 2013-04-15 Outpatient [facility] [id number] Memoria 21:04:00 01:45:00 Bowie Bowie [address] [facility] 2013-04-14 2013-04-15 Outpatient [facility] [id number] Memoria 21:04:00 01:45:00 Bowie Vin [address] [facility] 2013-04-14 2013-04-15 Outpatient [facility] [id number] Memoria 21:04:00 01:45:00 Bowie Bowie [address] [facility] Results Test Description Test Time Test Comments [...] the main Lab for analysi s. Urine [id number] 11:32:13 Test Item Value Reference Range Interpretation [...] Escherichia coli C Urine Added by GL_SJM_UA_CUL_INDPOC [id number] 07:52:10 Test Item Value Reference Range Interpretation Comments Glucose POC (test 160 mg/dL 70-115 H If you con drupal architect your code = Glucose POC) patient critically ill, the Merlin-Accu Check Infrom II meter should not be used for Glucose determination. Draw a venous Glucose and send to the main Lab for analysis. POC [id number] 19:32:05 Test Item Value Reference Range Interpretation Comments Glucose POC (test 184 mg/dL 70-115 H If you con drupal architect your code = Glucose POC) patient critically ill, the Merlin-Accu Check Infrom II meter should not be used for Glucose determination. Draw a venous Glucose and send to the main Lab for analysis. POC [id number] 17:16:35 Test Item Value Reference Range Interpretation Comments Glucose POC (test 281 mg/dL 70-115 H Notify RN or MDIf you code = Glucose POC) consider your patient critically ill, the Merlin-Accu Chec k Infrom II meter should not be used for Glucos e determination. Draw a venous Glucose and send to the main Lab for analysis. POC [id number] 12:00:38 Test Item Value Reference Range Interpretation Comments Glucose POC (test 138 mg/dL 70-115 H Notify RN or MDIf you code = Glucose POC) consider your patient critically ill, the Merlin-Accu Chec k Infrom II meter should not be used for Glucos e determination. Draw a venous Glucose and send to the main Lab for analysis. POC [id number] 07:41:32 Test Item Value Reference Range Interpretation Comments Glucose POC (test 206 mg/dL 70-115 H Notify RN or MDIf you code = Glucose POC) consider your patient critically ill, the Merlin-Accu Chec k Infrom II meter should not be used for Glucos e determination. Draw a venous Glucose and send to the main Lab for analysis. Urinalysis [id number] 21:07:21 Test Item Value Reference Range Interpretation Comments UA WBC (test code = UA WBC) TNTC 0-5 A UA RBC (test code = UA RBC) 6-10 0-5 A UA Bacteria (test code = UA Bacteria) Profuse A UA Squam Epithelial (test code = UA 6-10 A Squam Epithelial) Urinalysis with Culture, if [id number] 20:35:14 Test Item Value Reference Range Interpretation [...] Micro Indicated Not Indicated A Ind?) POC [id number] 19:06:34 Test Item Value Reference Range Interpretation Comments Glucose POC (test 207 mg/dL 70-115 H If you con drupal architect your code = Glucose POC) patient critically ill, the Merlin-Accu Check Infrom II meter should not be used for Glucose determination. Draw a venous Glucose and send to the main Lab for analysis. POC [id number] 17:12:03 Test Item Value Reference Range Interpretation Comments Glucose POC (test 173 mg/dL 70-115 H Notify RN or MDIf you code = Glucose POC) consider your patient critically ill, the Merlin-Accu Chec k Infrom II meter should not be used for Glucos e determination. Draw a venous Glucose and send to the main Lab for analysis. POC [id number] 11:58:01 Test Item Value Reference Range Interpretation Comments Glucose POC (test 289 mg/dL 70-115 H Notify RN or MDIf you code = Glucose POC) consider your patient critically ill, the Merlin-Accu Chec k Infrom II meter should not be used for Glucos e determination. Draw a venous Glucose and send to the main Lab for analysis. POC [id number] 08:19:37 Test Item Value Reference Range Interpretation Comments Glucose POC (test 201 mg/dL 70-115 H Notify RN or MDIf you code = Glucose POC) consider your patient critically ill, the Merlin-Accu Chec k Infrom II meter should not be used for Glucos e determination. Draw a venous Glucose and send to the main Lab for analysis. POC [id number] 20:37:35 Test Item Value Reference Range Interpretation Comments Glucose POC (test 272 mg/dL 70-115 H If you con drupal architect your code = Glucose POC) patient critically ill, the Merlin-Accu Check Infrom II meter should not be used for Glucose determination. Draw a venous Glucose and send to the main Lab for analysis. POC [id number] 17:23:05 Test Item Value Reference Range Interpretation Comments Glucose POC (test 229 mg/dL 70-115 H If you con drupal architect your code = Glucose POC) patient critically ill, the Merlin-Accu Check Infrom II meter should not be used for Glucose determination. Draw a venous Glucose and send to the main Lab for analysis. POC [id number] 12:01:01 Test Item Value Reference Range Interpretation Comments Glucose POC (test 155 mg/dL 70-115 H If you con drupal architect your code = Glucose POC) patient critically ill, the Merlin-Accu Check Infrom II meter should not be used for Glucose determination. Draw a venous Glucose and send to the main Lab for analysis. POC [id number] 08:07:32 Test Item Value Reference Range Interpretation Comments Glucose POC (test 248 mg/dL 70-115 H If you con drupal architect your code = Glucose POC) patient critically ill, the Merlin-Accu Check Infrom II meter should not be used for Glucose determination. Draw a venous Glucose and send to the main Lab for analysis. IG [id number] 06:50:39 Test Item Value Reference Range Interpretation Comments IG (test code = IG) 0.7 % 0.0-5.0 IG Abs (test code = IG Abs) 0 x10 N Complete Blood Count with [id number] 06:50:38 Test Item Value Reference Range Interpretation [...] code = IPF) 0 % N Automated [id number] 06:50:38 Test Item Value Reference Range Interpretation Comments Neutro Auto (test code = Neutro 50.3 % 36.0-70.0 Auto) Lymph Auto (test code = Lymph Auto) 38.6 % 12.0-44.0 Stephens Auto (test code = Stephens Auto) 7.3 % 0.0-11.0 Eos, Auto (test code = Eos, Auto) 2.4 % 0.0-7.0 Basophil Auto (test code = Basophil 0.7 % 0.0-2.0 Auto) Neutro Absolute (test code = Neutro 3.0 x10 1.6-7.4 Absolute) Lymph Absolute (test code = Lymph 2.28 x10 .50-4.60 Absolute) Stephens Absolute (test code = Stephens .43 x10 .00-1.20 Absolute) Eos Absolute (test code = Eos 0.14 x10 0.00-0.74 Absolute) Baso Absolute (test code = Baso 0.04 x10 0.00-0.21 Absolute) Basic Metabolic [id number] 05:38:20 Test Item Value Reference Range Interpretation [...] = Lipemia) 0 mg/dL 8-11 Basic Metabolic [id number] 05:38:20 Test Item Value Reference Range Interpretation [...] = 0 mg/dL 8-11 Lipemia) Basic Metabolic [id number] 05:38:20 Test Item Value Reference Range Interpretation [...] code = 0 mg/dL 8-11 Lipemia) POC [id number] 20:28:33 Test Item Value Reference Range Interpretation Comments Glucose POC (test 169 mg/dL 70-115 H If you con drupal architect your code = Glucose POC) patient critically ill, the Merlin-Accu Check Infrom II meter should not be used for Glucose determination. Draw a venous Glucose and send to the main Lab for analysis. POC [id number] 16:39:30 Test Item Value Reference Range Interpretation Comments Glucose POC (test 103 mg/dL 70-115 If you con drupal architect your code = Glucose POC) patient critically ill, the Merlin-Accu Check Infrom II meter should not be used for Glucose determination. Draw a venous Glucose and send to the main Lab for analysis. RPR [id number] 12:08:56 Test Item Value Reference Range Interpretation Comments RPR Qual (test code = RPR Qual) Non-Reactive Non-Reactive Reactive Control (test code = Reactive Reactive Control) Weak Reactive Control (test Weak Reactive code = Weak Reactive Control) Non-Reactive Control (test code Non-Reactive = Non-Reactive Control) Lot # (test code = Lot #) [id number] N Expiration Dt (test code = 03-20-2021 N Expiration Dt) POC [id number] 11:52:31 Test Item Value Reference Range Interpretation Comments Glucose POC (test 250 mg/dL 70-115 H If you con drupal architect your code = Glucose POC) patient critically ill, the Merlin-Accu Check Infrom II meter should not be used for Glucose determination. Draw a venous Glucose and send to the main Lab for analysis. POC [id number] 07:55:29 Test Item Value Reference Range Interpretation Comments Glucose POC (test 205 mg/dL 70-115 H If you con drupal architect your code = Glucose POC) patient critically ill, the Merlin-Accu Check Infrom II meter should not be used for Glucose determination. Draw a venous Glucose and send to the main Lab for analysis. Lipid [id number] 05:46:04 Test Item Value Reference Range Interpretation [...] LDL/HDL Ratio=L DL Calc/HDL Chol Thyroid Stimulating [id number] 05:46:04 Test Item Value Reference Range Interpretation Comments TSH (test code = TSH) 3.274 mcIU/mL 0.550-4.780 Hemoglobin [id number] 05:41:08 Test Item Value Reference Range Interpretation Comments Hemoglobin A1c (test code 7.6 % 4.0-5.8 H Di abetic >=6.5 = Hemoglobin A1c) %Prediabet es 5.7-6.4 %Normal <5.7 % Hepatitis B Surface [id number] 21:19:36 Test Item Value Reference Range Interpretation Comments Hep Bs Ag (test code = Hep Bs Non-Reactive Non-Reactive Ag) Novel Coronavirus SARS-CoV-2, [id number] 11:16:16 Test Item Value Reference Range Interpretation [...] Emergency Use Authorization." Novel Coronavirus (COVID-19), EMANUEL [id number] 11:11:24TNPTest not sent and performed at [facility]Rapid was perfomed in Microbiology.Wrong covid test was ord ered.Urine [id number] 00:17:49 Test Item Value Reference Range Interpretation [...] days. U Propoxyphene (test Negative Negative The [facility] is code = U Propoxyphene) presu mptive positive if the analyte concentration i s equal to or greater t scott 300 ng/ml.If confir mation of positive res ult is desired, please order Propoxyphene Confirmation wi thin 7 days. Alcohol [id number] 00:17:29 Test Item Value Reference Range Interpretation Comments Ethanol Level 9.0 mg/dL N The pharmacolo gical (test code = response to blo od alcohol Ethanol Level) levels may va ry from individual to i ndividual. The fatal omkar ntration has been report ed to be >400 mg/dl. Comprehensive Metabolic [id number] 00:17:28 Test Item Value Reference Range Interpretation [...] = Lipemia) 0 g/dL 1-2 Comprehensive Metabolic [id number] 00:17:28 Test Item Value Reference Range Interpretation [...] = 0 g/dL 1-2 Lipemia) Comprehensive Metabolic [id number] 00:17:28 Test Item Value Reference Range Interpretation [...] g/dL 1-2 Lipemia) Complete Blood Count with [id number] 23:26:28 Test Item Value Reference Range Interpretation [...] code = IPF) 0 % N Automated [id number] 23:26:28 Test Item Value Reference Range Interpretation Comments Neutro Auto (test code = Neutro 67.1 % 36.0-70.0 Auto) Lymph Auto (test code = Lymph Auto) 23.3 % 12.0-44.0 Stephens Auto (test code = Stephens Auto) 5.8 % 0.0-11.0 Eos, Auto (test code = Eos, Auto) 2.3 % 0.0-7.0 Basophil Auto (test code = Basophil 0.8 % 0.0-2.0 Auto) Neutro Absolute (test code = Neutro 6.0 x10 1.6-7.4 Absolute) Lymph Absolute (test code = Lymph 2.10 x10 .50-4.60 Absolute) Stephens Absolute (test code = Stephens .52 x10 .00-1.20 Absolute) Eos Absolute (test code = Eos 0.21 x10 0.00-0.74 Absolute) Baso Absolute (test code = Baso 0.07 x10 0.00-0.21 Absolute) IG [id number] 23:26:28 Test Item Value Reference Range Interpretation Comments IG (test code = IG) 0.7 % 0.0-5.0 IG Abs (test code = IG Abs) 0 x10 N HERPES VIRUS ANTIBODY, [id number] 21:46:00 Test Item Value Reference Range Interpretation Comments HERPES VIRUS IGM (AKER) Negative SE E ATTACHMENT (test code = 1808) BLOOD [id number] 06:00:00 Test Item Value Reference Range Interpretation Comments CULTURE (BEAKER) (test No growth in 5 days code = 1095) BLOOD [id number] 06:00:00 Test Item Value Reference Range Interpretation Comments CULTURE (BEAKER) (test No growth in 5 days code = 1095) POCT-GLUCOSE [id number] 12:11:00 Test Item Value Reference Range Interpretation Comments POC-GLUCOSE METER 154 mg/dL 70-110 H TESTED AT [place] [address] ([facility]) (test code = [facility] Eduin [facility] 1538) [address] POCT-GLUCOSE [id number] 07:53:00 Test Item Value Reference Range Interpretation Comments POC-GLUCOSE METER 87 mg/dL 70-110 TESTED AT [place] [address] ([facility]) (test code = [facility] [address] 1538) POCT-GLUCOSE [id number] 06:49:00 Test Item Value Reference Range Interpretation Comments POC-GLUCOSE METER 79 mg/dL 70-110 TESTED AT [place] [address] ([facility]) (test code = [facility] [address] 1538) COMPREHENSIVE METABOLIC [id number] 06:15:00 Test Item Value Reference Range Interpretation [...] S NOT APPLICABLE FOR DIALYSIS PATIEN TS. [id number] 06:11:00 Test Item Value Reference Range Interpretation Comments MAGNESIUM (BEAKER) (test code = 2.1 mg/dL 1.6-2.6 627) HEPATIC FUNCTION [id number] 06:11:00 Test Item Value Reference Range Interpretation [...] code = 513 U/L 6-55 H 347) [id number] 05:30:00 Test Item Value Reference Range Interpretation Comments FIBRINOGEN LEVEL (BEAKER) (test 368 mg/dl 225-434 code = 658) [id number] 05:30:00 Test Item Value Reference Range Interpretation Comments PARTIAL THROMBOPLASTIN TIME 42.2 seconds 22.5-36.0 H (BEAKER) (test code = 760) PROTHROMBIN [id number] 05:29:00 Test Item Value Reference Range Interpretation Comments PROTIME (BEAKER) (test code = 14.8 seconds 11.7-14.7 H 759) INR (BEAKER) (test code = 370) 1.2 <=5.9 RECOMMENDED COUMADIN/WARFARIN INR THERAPY RANGESSTANDARD DOSE: 2.0 - 3.0 Includes: PROPHYLAXIS forvenous thrombosis, systemic embolization; TREATMENT for venous thrombosis and/or pulmonary embolus.HIGH RISK: Target INR is 2.5-3.5 for patients with mechanical heart valves.POCT-GLUCOSE [id number] 21:09:00 Test Item Value Reference Range Interpretation Comments POC-GLUCOSE METER 178 mg/dL 70-110 H TESTED AT [place] [address] ([facility]) (test code = [facility] 1538) [address] POCT-GLUCOSE [id number] 17:18:00 Test Item Value Reference Range Interpretation Comments POC-GLUCOSE METER 178 mg/dL 70-110 H TESTED AT [place] [address] ([facility]) ([facility] 1538) [address] POCT-GLUCOSE [id number] 13:48:00 Test Item Value Reference Range Interpretation Comments POC-GLUCOSE METER 150 mg/dL 70-110 H TESTED AT [place] [address] ([facility]) (test code = 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) (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 G 1807) CYTOMEGALOVIRUS ANTIBODY, [id number] 08:59:00 Test Item Value Reference Range Interpretation Comments CYTOMEGALOVIRUS IGG ANTIBODY Positive (BEAKER) (test code = 790) EBV-VCA ANTIBODY, [id number] 08:59:00 Test Item Value Reference Range Interpretation Comments JASE-WALL VCA IGG (BEAKER) (test Positive code = 983) EBV-VCA ANTIBODY, [id number] 08:59:00 Test Item Value Reference Range Interpretation Comments JASE-WALL VCA IGM (BEAKER) (test Negative code = 984) POCT-GLUCOSE [id number] 07:59:00 Test Item Value Reference Range Interpretation Comments POC-GLUCOSE METER 81 mg/dL 70-110 TESTED AT [facility] [address] ([facility]) (test code = BROOKE Denny [facility] [address] 1538) COMPREHENSIVE METABOLIC [id number] 06:23:00 Test Item Value Reference Range Interpretation [...] S NOT APPLICABLE FOR DIALYSIS PATIEN TS. [id number] 06:17:00 Test Item Value Reference Range Interpretation Comments MAGNESIUM (BEAKER) (test code = 1.8 mg/dL 1.6-2.6 627) HEPATIC FUNCTION [id number] 06:17:00 Test Item Value Reference Range Interpretation [...] code = 779 U/L 6-55 H 347) [id number] 06:00:00 Test Item Value Reference Range Interpretation Comments FIBRINOGEN LEVEL (BEAKER) (test 390 mg/dl 225-434 code = 658) [id number] 06:00:00 Test Item Value Reference Range Interpretation Comments PARTIAL THROMBOPLASTIN TIME 40.2 seconds 22.5-36.0 H ([facility]) (test code = 760) PROTHROMBIN [id number] 05:59:00 Test Item Value Reference Range Interpretation Comments PROTIME ([facility]) (test code = 14.6 seconds 11.7-14.7 759) INR ([facility]) (test code = 370) 1.2 <=5.9 RECOMMENDED COUMADIN/WARFARIN INR THERAPY RANGESSTANDARD DOSE: 2.0 - 3.0 Includes: PROPHYLAXIS forvenous thrombosis, systemic embolization; TREATMENT for venous thrombosis and/or pulmonary embolus.HIGH RISK: Target INR is 2.5-3.5 for patients with mechanical heart valves.POCT-GLUCOSE [id number] 21:46:00 Test Item Value Reference Range Interpretation Comments POC-GLUCOSE METER 153 mg/dL 70-110 H TESTED AT [place] [address] ([facility]) (test code = JULIADENZEL Eduin [facility] 1538) [address] POCT-GLUCOSE [id number] 18:47:00 Test Item Value Reference Range Interpretation Comments POC-GLUCOSE METER 181 mg/dL 70-110 H TESTED AT [place] [address] ([facility]) (test code = BROOKE Eduin [facility] 1538) [id number] POCT-GLUCOSE [id number] 12:40:00 Test Item Value Reference Range Interpretation Comments POC-GLUCOSE METER 178 mg/dL 70-110 H TESTED AT [place] [address] ([facility]) (test code = [facility]enny [facility] 1538) [id number] POCT-GLUCOSE [id number] 07:51:00 Test Item Value Reference Range Interpretation Comments POC-GLUCOSE METER 166 mg/dL 70-110 H TESTED AT [place] [address] ([facility]) (test code = [facility] 1538) [address] COMPREHENSIVE METABOLIC [id number] 03:26:00 Test Item Value Reference Range Interpretation Comments TOTAL PROTEIN 5.2 gm/dL 6.0-8.3 L ([facility]) (test code = 770) ALBUMIN ([facility]) 2.3 g/dL 3.5-5.0 L [...] S NOT APPLICABLE FOR DIALYSIS PATIEN TS. [id number] 03:22:00 Test Item Value Reference Range Interpretation Comments MAGNESIUM (BEAKER) (test code = 1.4 mg/dL 1.6-2.6 L 627) HEPATIC FUNCTION [id number] 03:22:00 Test Item Value Reference Range Interpretation [...] code = 1009 U/L 6-55 H 347) [id number] 03:12:00 Test Item Value Reference Range Interpretation Comments AMMONIA (BEAKER) (test code = 348) 29 mol/L 18-72 [id number] 03:10:00 Test Item Value Reference Range Interpretation Comments PARTIAL THROMBOPLASTIN TIME 42.3 seconds 22.5-36.0 H (BEAKER) (test code = 760) PROTHROMBIN [id number] 03:09:00 Test Item Value Reference Range Interpretation Comments PROTIME (BEAKER) (test code = 16.4 seconds 11.7-14.7 H 759) INR (BEAKER) (test code = 370) 1.3 <=5.9 RECOMMENDED COUMADIN/WARFARIN INR THERAPY RANGESSTANDARD DOSE: 2.0 - 3.0 Includes: PROPHYLAXIS forvenous thrombosis, systemic embolization; TREATMENT for venous thrombosis and/or pulmonary embolus.HIGH RISK: Target INR is 2.5-3.5 for patients with mechanical heart valves.[id number] 03:09:00 Test Item Value Reference Range Interpretation Comments FIBRINOGEN LEVEL (BEAKER) (test 413 mg/dl 225-434 code = 658) CBC W/PLT COUNT & AUTO [id number] 03:09:00 Test Item Value Reference Range Interpretation [...] L 0.00-0.20 (test code = 417) 0.00POCT-GLUCOSE [id number] 22:33:00 Test Item Value Reference Range Interpretation Comments POC-GLUCOSE METER 230 mg/dL 70-110 H TESTED AT [facility] 67 ([facility]) (test code = [facility] Eduin [facility] 1538) [address] POCT-GLUCOSE [id number] 18:17:00 Test Item Value Reference Range Interpretation Comments POC-GLUCOSE METER 222 mg/dL 70-110 H TESTED AT [facility] 6720 ([facility]) (test code = [facility] 1538) [address] COMPREHENSIVE METABOLIC [id number] 16:59:00 Test Item Value Reference Range Interpretation [...] PATIEN TS. PERIPHERAL BLOOD SMEAR - PATHOLOGIST [id number] 15:30:00 Test Item Value Reference Range Interpretation Comments RBC MORPHOLOGY Polychromasia (BEAKER) (test code = 2846) RBC MORPHOLOGY Anisocytosis (BEAKER) (test code = 28492) PERIPHERAL SMR REVIEW Cell counts confirmed (BEAKER) (test code = 3410) [id number] Josefina Lara M.D. (BEAKER) (test code = (electronic signature) 6335) PROTHROMBIN [id number] 15:12:00 Test Item Value Reference Range Interpretation [...] Reference Range Interpretation Comments ANTI-NUCLEAR ANTIBODY (IVETTE) ([employer]) Negative Negative (test code = 418) POCT-GLUCOSE [id number] 12:47:00 Test Item Value Reference Range Interpretation Comments POC-GLUCOSE METER 212 mg/dL 70-110 H TESTED AT [facility] 6720 ([employer]) (test code = [place] 1538) [address] [id number] 12:34:00 Test Item Value Reference Range Interpretation Comments RPR SCREEN ([employer]) (test code = Nonreactive Nonreactive 420) CLOSTRIDIUM DIFFICILE TOXIN [id number] 10:12:00 Test Item Value Reference Range Interpretation Comments CLOSTRIDIUM DIFFICILE TOXIN, PCR Not Detected Not Detected ([employer]) (test code = 1525) This qualitative real-time [...] Reference Range Interpretation Comments FACTOR V ACTIVITY ([employer]) (test code 86.0 % 60.0-150.0 = 665) Effective 10/24/2013: Reference Range Change-Adult onlyNew: 60.0-150.0 Previous: 50.0-150.0FACTOR 5 ACTIVITY (BLEEDING RISK)2017-01-04 09:13:00 Test Item Value Reference Range Interpretation Comments FACTOR V ACTIVITY (BEAKER) (test code 56.0 % 60.0-150.0 L = 665) Effective 10/24/2013: Reference Range Change-Adult onlyNew: 60.0-150.0 Previous: 50.0-150.0POCT-GLUCOSE [id number] 06:40:00 Test Item Value Reference Range Interpretation Comments POC-GLUCOSE METER 167 mg/dL 70-110 H TESTED AT [facility] 6720 (BEAKER) (test code = [place] 1538) [address] COMPREHENSIVE METABOLIC [id number] 04:08:00 Test Item Value Reference Range Interpretation [...] ESTIM ATED GFR. Specimen slightly ictericHEPATIC FUNCTION [id number] 04:06:00 Test Item Value Reference Range Interpretation [...] 1091 U/L 6-55 H 347) Specimen slightly [id number] 04:01:00 Test Item Value Reference Range Interpretation Comments FIBRINOGEN LEVEL (BEAKER) (test 379 mg/dl 225-434 code = 658) [id number] 04:01:00 Test Item Value Reference Range Interpretation Comments PARTIAL THROMBOPLASTIN TIME 40.7 seconds 22.5-36.0 H (BEAKER) (test code = 760) PROTHROMBIN [id number] 04:00:00 Test Item Value Reference Range Interpretation [...] L 0.00-0.20 (test code = 417) 0.00POCT-GLUCOSE [id number] 00:19:00 Test Item Value Reference Range Interpretation Comments POC-GLUCOSE METER 159 mg/dL 70-110 H TESTED AT [facility] 6720 (BEAKER) (test code = [place] 1538) [address] POCT-GLUCOSE [id number] 18:56:00 Test Item Value Reference Range Interpretation Comments POC-GLUCOSE METER 192 mg/dL 70-110 H TESTED AT [facility] 6720 (BEAKER) (test code = [place] D[place] 1538) [address] COMPREHENSIVE METABOLIC [id number] 16:55:00 Test Item Value Reference Range Interpretation [...] CALCULATE ESTIM ATED GFR. Specimen slightly ictericPROTHROMBIN [id number] 16:37:00 Test Item Value Reference Range Interpretation Comments PROTIME (BEAKER) (test code = 20.9 seconds 11.7-14.7 H 759) INR (BEAKER) (test code = 370) 1.8 <=5.9 RECOMMENDED COUMADIN/WARFARIN INR THERAPY RANGESSTANDARD DOSE: 2.0 - 3.0 Includes: PROPHYLAXIS forvenous thrombosis, systemic embolization; TREATMENT for venous thrombosis and/or pulmonary embolus.HIGH RISK: Target INR is 2.5-3.5 for patients with mechanical heart valves.HEPATITIS B SURFACE [id number] 14:05:00 Test Item Value Reference Range Interpretation Comments HEPATITIS B SURFACE ANTIBODY < mIU/mL <8.0 (BEAKER) (test code = 647) HEPATITIS B CORE ANTIBODY, [id number] 13:43:00 Test Item Value Reference Range Interpretation Comments HEPATITIS B CORE TOTAL ANTIBODY Nonreactive Nonreactive (BEAKER) (test code = 497) BLOOD GAS, [id number] 13:35:00 Test Item Value Reference Range Interpretation [...] code = 1819) 28.0 % URINALYSIS W/ [id number] 13:16:00 Test Item Value Reference Range Interpretation [...] 1584) SOURCE(BEAKER) (test code = Urine, [place] 9925) VITAMIN D, 95-[id number] 13:14:00 Test Item Value Reference Range Interpretation Comments VITAMIN D 25-OH (BEAKER) (test code = < ng/mL 13.0-47.8 L 2764) ALPHA FETOPROTEIN (AFP), TUMOR [id number] 13:06:00 Test Item Value Reference Range Interpretation Comments ALPHA-FETOPROTEIN (BEAKER) (test code < ng/mL <10.0 = 1094) Effective 05/08/2014: Reference Range ChangeNew: <10.0 Previous: 0.0-8.0 HEMOGLOBIN [id number] 13:05:00 Test Item Value Reference Range Interpretation Comments HEMOGLOBIN A1C (BEAKER) (test code = 7.6 % 4.3-6.1 H 368) CARCINOEMBRYONIC ANTIGEN (CEA)2017-01-03 12:59:00 Test Item Value Reference Range Interpretation Comments CARCINOEMBRYONIC ANTIGEN (BEAKER) 2.0 ng/mL 0.0-5.0 (test code = 685) [id number] 12:59:00 Test Item Value Reference Range Interpretation Comments FERRITIN (BEAKER) (test code = 1841 ng/mL 5-275 H 361) Effective 05/08/2014: Reference Range ChangeNew: Male 5-275 Previous: Male 22-322 Female 5-275 Female [id number] 12:58:00 Test Item Value Reference Range Interpretation Comments T4 TOTAL (BEAKER) (test code = 895) 4.5 ug/dL 4.9-11.7 L [id number] 12:58:00 Test Item Value Reference Range Interpretation Comments THYROID STIMULATING HORMONE 1.79 uIU/mL 0.35-4.94 (BEAKER) (test code = 772) [id number] 12:58:00 Test Item Value Reference Range Interpretation Comments T3 TOTAL (BEAKER) (test code = 656) 34 ng/dL 48-159 L Effective 05/08/2014: Reference Range ChangeNew: 48-159 Previous: 60-181 CALCIUM, [id number] 12:47:00 Test Item Value Reference Range Interpretation Comments CALCIUM IONIZED (BEAKER) (test 1.05 mmol/L 1.12-1.27 L code = 698) PH, BLOOD (BEAKER) (test code = 7.43 1810) [id number] 12:42:00 Test Item Value Reference Range Interpretation [...] % 20-55 (test code = 2590) URIC [id number] 12:40:00 Test Item Value Reference Range Interpretation Comments URIC ACID (BEAKER) (test code = 16.0 mg/dL 2.6-7.2 H 773) Specimen slightly ictericLIPID [id number] 12:40:00 Test Item Value Reference Range Interpretation [...] 160-189 Very High >=190 Specimen slightly ictericBILIRUBIN, [id number] 12:40:00 Test Item Value Reference Range Interpretation Comments BILIRUBIN DIRECT (MADIE) (test 2.4 mg/dL 0.1-0.5 H code = 706) GAMMA GLUTAMYL TRANSFERASE (GGT)2017-01-03 12:40:00 Test Item Value Reference Range Interpretation Comments GAMMA GLUTAMYL TRANSFERASE (MADIE) 53 U/L 9-64 (test code = 364) Specimen slightly [id number] 12:39:00 Test Item Value Reference Range Interpretation Comments ETHANOL (MADIE) (test code = 400) < mg/dL <=10 SCREEN, [id number] 12:36:00 Test Item Value Reference Range Interpretation Comments TEST URINE (MADIE) (test Negative code = 583) POCT-GLUCOSE [id number] 12:34:00 Test Item Value Reference Range Interpretation Comments POC-GLUCOSE METER 189 mg/dL 70-110 H TESTED AT [facility] 6720 (MADIE) (test code = [place] 1538) [address] HIV-1 ANTIGEN WITH HIV-1/2 [id number] 11:58:00 Test Item Value Reference Range Interpretation Comments HIV-1 ANTIGEN WITH HIV 1\\T\\2 Nonreactive Nonreactive ANTIBODY (2) ([employer]) (test code = 2586) TROPONIN [id number] 09:44:00 Test Item Value Reference Range Interpretation [...] Previous: 0.0-4.9CK-MB Reference Range:<6.7 Normal6.7-10.0 Borderline>10.0 AbnormalACETAMINOPHEN [id number] 08:31:00 Test Item Value Reference Range Interpretation Comments ACETAMINOPHEN LEVEL (BEAKER) (test < ug/mL 10.0-30.0 L code = 344) TROPONIN [id number] 05:53:00 Test Item Value Reference Range Interpretation [...] acute neurological disease, and persistent tachyarrhythmia.BASIC METABOLIC [id number] 05:53:00 Test Item Value Reference Range Interpretation [...] TO CALCULA TE ESTIMATED GFR. Specimen slightly [id number] 05:52:00 Test Item Value Reference Range Interpretation Comments PHOSPHORUS (BEAKER) (test code = 5.7 mg/dL 2.3-4.7 H 604) HEPATIC FUNCTION [id number] 05:52:00 Test Item Value Reference Range Interpretation [...] Specimen slightly ictericCREATINE KINASE (CK), TOTAL AND [id number] 05:52:00 Test Item Value Reference Range Interpretation Comments CREATINE KINASE TOTAL (BEAKER) 341 U/L 29-200 H (test code = 380) CREATINE KINASE-MB (BEAKER) (test 5.4 ng/mL 0.0-6.6 code = 750) CREATINE KINASE-MB INDEX (BEAKER) 1.6 % (test code = 395) Effective 05/08/2014: CK-MB Reference Range ChangeNew: 0.0-6.6 Previous: 0.0-4.9CK-MB Reference Range:<6.7 Normal6.7-10.0 Borderline>10.0 AbnormalCBC W/PLT COUNT & AUTO [id number] 05:48:00 Test Item Value Reference Range Interpretation [...] K/ L 0.00-0.20 (test code = 417) [id number] 05:09:00 Test Item Value Reference Range Interpretation Comments FIBRINOGEN LEVEL (BEAKER) (test 427 mg/dl 225-434 code = 658) [id number] 05:09:00 Test Item Value Reference Range Interpretation Comments PARTIAL THROMBOPLASTIN TIME 36.2 seconds 22.5-36.0 H (BEAKER) (test code = 760) PROTHROMBIN [id number] 05:08:00 Test Item Value Reference Range Interpretation Comments PROTIME (BEAKER) (test code = 22.8 seconds 11.7-14.7 H 759) INR (BEAKER) (test code = 370) 2.0 <=5.9 RECOMMENDED COUMADIN/WARFARIN INR THERAPY RANGESSTANDARD DOSE: 2.0 - 3.0 Includes: PROPHYLAXIS forvenous thrombosis, systemic embolization; TREATMENT for venous thrombosis and/or pulmonary embolus.HIGH RISK: Target INR is 2.5-3.5 for patients with mechanical heart valves.HEPATITIS PANEL, [id number] 03:40:00 Test Item Value Reference Range Interpretation Comments HEPATITIS A IGM ANTIBODY (BEAKER) Nonreactive Nonreactive (test code = 498) HEPATITIS B CORE IGM ANTIBODY Nonreactive Nonreactive (BEAKER) (test code = 645) HEPATITIS C ANTIBODY (BEAKER) Nonreactive Nonreactive (test code = 367) HEPATITIS B SURFACE ANTIGEN (2) Nonreactive Nonreactive (BEAKER) (test code = 2585) CREATININE, RANDOM [id number] 03:18:00 Test Item Value Reference Range Interpretation Comments CREATININE URINE (BEAKER) (test 118.7 mg/dL code = 375) Reference Range: No NormalsSODIUM, RANDOM [id number] 03:18:00 Test Item Value Reference Range Interpretation Comments SODIUM URINE (BEAKER) (test code = 60 meq/L 243) Reference Range: No NormalsUREA NITROGEN, RANDOM [id number] 03:18:00 Test Item Value Reference Range Interpretation Comments UREA NITROGEN URINE (BEAKER) (test 303 mg/dL code = 538) Reference Range: No [id number] 03:07:00 Test Item Value Reference Range Interpretation Comments AMMONIA (BEAKER) (test code = 348) 48 mol/L 18-72 [id number] 02:57:00 Test Item Value Reference Range Interpretation [...] within 95-100% range. URINALYSIS W/ REFLEX URINE [id number] 02:53:00 Test Item Value Reference Range Interpretation [...] = 514) SOURCE(BEAKER) (test code = 2795) [id number] 02:49:00 Test Item Value Reference Range Interpretation Comments PARTIAL THROMBOPLASTIN TIME 39.4 seconds 22.5-36.0 H (BEAKER) (test code = 760) PROTHROMBIN [id number] 02:48:00 Test Item Value Reference Range Interpretation Comments PROTIME (BEAKER) (test code = 22.0 seconds 11.7-14.7 H 759) INR (BEAKER) (test code = 370) 1.9 <=5.9 RECOMMENDED COUMADIN/WARFARIN INR THERAPY RANGESSTANDARD DOSE: 2.0 - 3.0 Includes: PROPHYLAXIS forvenous thrombosis, systemic embolization; TREATMENT for venous thrombosis and/or pulmonary embolus.HIGH RISK: Target INR is 2.5-3.5 for patients with mechanical heart valves.[id number] 02:48:00 Test Item Value Reference Range Interpretation Comments FIBRINOGEN LEVEL (BEAKER) (test 421 mg/dl 225-434 code = 658) BLOOD GAS, [id number] 02:43:00 Test Item Value Reference Range Interpretation [...] 21.0 % CBC W/PLT COUNT & AUTO [id number] 02:43:00 Test Item Value Reference Range Interpretation [...] code = 417) 0.00LACTIC ACID, VENOUS, WHOLE [id number] 02:35:00 Test Item Value Reference Range Interpretation Comments LACTATE BLOOD VENOUS (2) (BEAKER) 0.8 mmol/L 0.5-2.2 (test code = 2872) Effective 10/23/2015: Units/Reference Range ChangeNew: 0.5-2.2 mmol/L Previous: 5-20 mg/dLSpecimen slightly icteric
[2020-10-10 06:10] LABS: Absolute Lymphocytes (CBC) 1.2 K/uL (0.7-4.9); Basophils % 1.1 % (0-1.3); Hematocrit 23.9 % (36.0-45.0); Lymphocytes % 28.9 % (15.3-44.8); MPV 11.5 fL (7.6-11.3); RBC Red Blood Cell Count 2.63 M/uL (3.86-4.86)
[2020-10-10] MEDS ORDERED: PANTOPRAZOLE 40 MG INJ ONE (06:15)
[2020-10-10] MEDS ORDERED: ONDANSETRON 4 MG/2 ML VIAL ONE ×2 (06:15→08:29)
[2020-10-10] MEDS ORDERED: MORPHINE 4 MG/ML SYR ONE ×2 (06:33→09:04)
[2020-10-10 06:54] LABS: ALT/SGPT 15 U/L (12-78); AST/SGOT 11 U/L (15-37); Albumin 3.7 g/dL (3.4-5.0); Alkaline Phosphatase 47 U/L (45-117); BUN Blood Urea Nitrogen 19 mg/dL (7-18); Bicarbonate 30 mmol/L (21-32); Bilirubin Direct 0.2 mg/dL (0-0.2); Bilirubin Total 0.5 mg/dL (0.2-1.0); Glucose Level 115 mg/dL (74-106); Magnesium 1.9 mg/dL (1.8-2.4); NT PRO-BNP 76271 pg/mL (<125); Potassium 4.8 mmol/L (3.5-5.1); Protein, Total 6.7 g/dL (6.4-8.2); Sodium Level 137 mmol/L (136-145); Troponin (Emerg Dept Use Only) < 0.02 ng/mL (0.0-0.045)
[2020-10-10] MEDS ORDERED: HYDRALAZINE HCL 20 MG/ML VIAL ONE ×2 (07:13→07:46)
--- NOTE | 2020-10-10 07:56 | RAD REPORT ---
EXAM DESCRIPTION: RAD - Chest Single View - 10/10/2020 6:21 am CLINICAL HISTORY: COUGH, left-sided abdominal pain, hematemesis COMPARISON: Portable September 30 TECHNIQUE: AP portable chest image was obtained 10/10/2020 6:21 am . FINDINGS: No focal mass or consolidation. Cardiomegaly is present accentuated by the portable lordot ic position. Upper lobe vasculature within normal limits. No measurable pleural effusion and no pneum othorax. No acute bony abnormality seen. No acute aortic findings suspected. IMPRESSION: No focal lung parenchymal process identified. Cardiomegaly accentuated by shallow inspiration portable technique and lordotic positioning.
--- NOTE | 2020-10-10 08:45 | EDPHYS ---
Physician Documentation [facility] Name: Cathi Zaldivar Age: 39 yrs Sex: Female : 1980 Arrival Date: 10/10/2020 Time: 05:32 Bed 8 Private MD: DWIGHT Physician Luis Sandra HPI: 10/10 06:01 This 39 yrs old Female presents to ER via EMS with complaints of Vomiting, juan Abdominal Pain. 06:01 The patient presents to the emergency department with nausea, vomiting, that is juan continuous. Onset: The symptoms/episode began/occurred just prior to arrival, this morning. Possible causes: unknown. The symptoms are aggravated by nothing. Associated signs and symptoms: Pertinent positives: abdominal pain, nausea, vomiting. Severity of symptoms: At their worst the symptoms were mild moderate in the emergency department the symptoms have improved mildly. The patient has not experienced similar symptoms in the past. 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 - Social history:: Smoking status: Patient reports the use of cigarette tobacco products, 3 CIGARETTES A DAY, Patient uses. ROS: 06:02 Constitutional: Negative for fever, chills, and weight loss, Eyes: Negative for injury, juan pain, redness, and discharge, ENT: Negative for injury, pain, and discharge, Neck: Negative for injury, pain, and swelling, Cardiovascular: Negative for chest pain, palpitations, and edema, Respiratory: Negative for shortness of breath, cough, wheezing, and pleuritic chest pain, Back: Negative for injury and pain, : Negative for injury, bleeding, discharge, and swelling, MS/Extremity: Negative for injury and deformity, Skin: Negative for injury, rash, and discoloration, Neuro: Negative for headache, weakness, numbness, tingling, and seizure, Psych: Negative for depression, anxiety, suicide ideation, homicidal ideation, and hallucinations, Allergy/Immunology: Negative for hives, rash, and allergies, Endocrine: Negative for neck swelling, polydipsia, polyuria, polyphagia, and marked weight changes, Hematologic/Lymphatic: Negative for swollen nodes, abnormal bleeding, and unusual bruising. 06:02 Abdomen/GI: Positive for abdominal pain, nausea and vomiting, abdominal cramps. Exam: 06:02 Constitutional: This is a well developed, well nourished patient who is awake, alert, juan and in no acute distress. Head/Face: Normocephalic, atraumatic. Eyes: Pupils equal round and reactive to light, extra-ocular motions intact. Lids and lashes normal. Conjunctiva and sclera are non-icteric and not injected. Cornea within normal limits. Periorbital areas with no swelling, redness, or edema. ENT: Nares patent. No nasal discharge, no septal abnormalities noted. Tympanic membranes are normal and external auditory canals are clear. Oropharynx with no redness, swelling, or masses, exudates, or evidence of obstruction, uvula midline. Mucous membranes moist. Neck: Trachea midline, no thyromegaly or masses palpated, and no cervical lymphadenopathy. Supple, full range of motion without nuchal rigidity, or vertebral point tenderness. No Meningismus. Chest/axilla: Normal chest wall appearance and motion. Nontender with no deformity. No lesions are appreciated. Cardiovascular: Regular rate and rhythm with a normal S1 and S2. No gallops, murmurs, or rubs. Normal PMI, no JVD. No pulse deficits. Respiratory: Lungs have equal breath sounds bilaterally, clear to auscultation and percussion. No rales, rhonchi or wheezes noted. No increased work of breathing, no retractions or nasal flaring. Back: No spinal tenderness. No costovertebral tenderness. Full range of motion. Skin: Warm, dry with normal turgor. Normal color with no rashes, no lesions, and no evidence of cellulitis. MS/ Extremity: Pulses equal, no cyanosis. Neurovascular intact. Full, normal range of motion. Neuro: Awake and alert, GCS 15, oriented to person, place, time, and situation. Cranial nerves II-XII grossly intact. Motor strength 5/5 in all extremities. Sensory grossly intact. Cerebellar exam normal. Normal gait. Psych: Awake, alert, with orientation to person, place and time. Behavior, mood, and affect are within normal limits. 06:02 Abdomen/GI: Inspection: abdomen appears normal, Bowel sounds: normal, Palpation: mild abdominal tenderness, in the left upper quadrant, Liver: no appreciated palpable abnormalities, Hernia: not appreciated. 06:13 ECG was reviewed by the Attending Physician. juan Vital Signs: 05:32 BP 188 / 87; Pulse 70; Resp 17; Temp 97.7; Pulse Ox 100% ; Weight 75.4 kg; Height 5 ft. rv 2 in. (157.48 cm); Pain 8/10; 06:50 BP 206 / 102; Pulse 69; Resp 16; Pulse Ox 96% ; jm8 08:09 BP 153 / 87; Pulse 78; Pulse Ox 97% on R/A; ap3 05:32 Body Mass Index 30.40 (75.40 kg, 157.48 cm) rv MDM: 05:37 Patient medically screened. juan 06:04 Differential diagnosis: Nonspecific abd pain, gastritis, viral gastroenteritis, juan gastroenteritis. Data reviewed: vital signs, nurses notes, lab test result(s), EKG, radiologic studies, plain films. Data interpreted: desk monitor: rate is 70 beats/min, rhythm is regular, Pulse oximetry: on room air is 100 %. Test interpretation: by ED physician or midlevel provider: ECG, plain radiologic studies. Counseling: I had a detailed discussion with the patient and/or guardian regarding: the historical points, exam findings, and any diagnostic results supporting the discharge/admit diagnosis, lab results, radiology results, the need for outpatient follow up, for definitive care, an bond clerk. 08:10 ED course: Pt threw up again, no blood, re-medicated. . rn 08:43 ED course: Pt feels better, reports identical to her gastroparesis, has been trying to rn advance her diet to meat lately and thinks may be too much, offered observation in hospital, patient states feels ok to go home, requests another pain shot because she attributes nausea to her pain. No hematemesis, H/H stable compared to recent admission. Urged to f/u with Dr. Gregorio, her GI doctor.. 10/10 05:45 Order name: Basic Metabolic Panel [facility] 10/10 05:45 Order name: CBC with Diff [facility] 10/10 05:45 Order name: LFT's [facility] 10/10 05:45 Order name: Magnesium [facility] 10/10 05:45 Order name: NT PRO-BNP; Complete Time: 07:58 [facility] 10/10 05:45 Order name: Troponin (emerg Dept Use Only); Complete Time: 07:58 [facility] 10/10 05:45 Order name: XRAY Chest (1 view); Complete Time: 07:58 [facility] 10/10 05:45 Order name: Basic Metabolic Panel; Complete Time: 07:58 EDMS 10/10 05:45 Order name: CBC with Automated Diff; Complete Time: 06:41 EDMS 10/10 05:45 Order name: Liver (Hepatic) Function; Complete Time: 07:58 EDMS 10/10 05:45 Order name: Magnesium; Complete Time: 07:58 EDMS 10/10 05:45 Order name: EKG; Complete Time: 05:46 [facility] 10/10 05:45 Order name: Cardiac monitoring; Complete Time: 06:11 [facility] 10/10 05:45 Order name: EKG - Nurse/Tech; Complete Time: 06:11 [facility] 10/10 05:45 Order name: IV Saline Lock; Complete Time: 05:46 [facility] 10/10 05:45 Order name: Labs collected and sent; Complete Time: 06:11 [facility] 10/10 05:45 Order name: O2 Per Protocol; Complete Time: 06:11 [facility] 10/10 05:45 Order name: O2 Sat Monitoring; Complete Time: 06:11 [facility] 10/10 07:16 Order name: Labs - recollect needed; Complete Time: 07:47 mt EC:13 Rate is 64 beats/min. Rhythm is regular. QRS [place] is Normal. NV interval is normal. QRS juan interval is normal. QT interval is normal. No Q waves. T waves are Normal. No ST changes noted. Clinical impression: Normal ECG and No evidence of ischemia. Interpreted by me. Reviewed by me. Administered Medications: 06:08 Drug: ProTONIX 40 mg Route: IVP; Site: left antecubital; jm8 06:58 Follow up: Response: No adverse reaction jm8 06:08 Drug: Zofran (Ondansetron) 4 mg Route: IVP; Site: left antecubital; jm8 06:58 Follow up: Response: No adverse reaction; Nausea is decreased jm8 06:15 Drug: morphine 4 mg Route: IVP; Site: left antecubital; jm8 06:58 Follow up: Response: No adverse reaction; Pain is decreased jm8 06:55 Drug: hydrALAZINE 10 mg Route: IV; Rate: per protocol; Site: left antecubital; jm8 07:33 Drug: hydrALAZINE 10 mg Route: IV; Rate: per protocol; Site: left antecubital; ap3 08:14 Drug: Zofran (Ondansetron) 4 mg Route: IVP; Site: right antecubital; ap3 08:43 Follow up: Response: No adverse reaction; Nausea is decreased ap3 08:50 Drug: morphine 4 mg {Note: patient is awake and alert .} Route: IVP; Site: left ap3 antecubital; 09:08 Follow up: Response: No adverse reaction; RASS: Alert and Calm (0) ap3 Disposition: 10/10/20 08:44 Discharged to Home. Impression: Vomiting, End stage renal disease, Gastritis, unspecified, with bleeding, Abdominal tenderness, Essential (primary) hypertension, Anemia, unspecified. - Condition is Stable. - Discharge Instructions: Abdominal Pain, Adult, Gastritis, Adult, Nausea and Vomiting, Adult, Gastritis, Adult, Jnka-zz-Tffa, Nausea and Vomiting, Adult, Rmni-xv-Iyzl, Abdominal Pain, Adult, Jqfe-bj-Icql, Dialysis, Dialysis Diet, Ogka-ze-Idkv. - Prescriptions for Protonix 40 mg Oral Tablet - take 1 tablet by ORAL route once daily; 30 tablet. Zofran 4 mg Oral Tablet - take 1 tablet by ORAL route every 12 hours As needed; 20 tablet. Phenergan 25 mg Rectal Suppository - insert 1 suppository by RECTAL route every 6 hours As needed; 15 suppository. - Medication Reconciliation Form, Thank You Letter, Antibiotic Education, Prescription Opioid Use form. - Follow up: Private Physician; When: Tomorrow; Reason: Recheck today's complaints, Continuance of care, Re-evaluation by your physician. Follow up: Aidan Franks; When: Tomorrow; Reason: Recheck today's complaints, Continuance of care, Re-evaluation by your physician. Follow up: Esa Gregorio; When: 2 - 3 days; Reason: Recheck today's complaints, Re-evaluation by your physician. - Problem is new. - Symptoms have improved. Signatures: Dispatcher [employer] [facility] Luis Sandra MD MD cha Nieto, Roman, MD MD rn Thompson, [facility] Radha Florez RN RN ap3 Isaac Gerardo RN RN Chandler Rodriguez RN RN jm8 Corrections: (The following items were deleted from the chart) 09:04 05:46 PROTIME (+INR)+COAG.LAB.BRZ ordered. [facility] 09:50 08:44 10/10/2020 08:44 Discharged to Home. Impression: Vomiting; End stage renal ap3 disease; Gastritis, unspecified, with bleeding; Abdominal tenderness; Essential (primary) hypertension; Anemia, unspecified. Condition is Stable. Discharge Instructions: Abdominal Pain, Adult, Gastritis, Adult, Nausea and Vomiting, Adult, Gastritis, Adult, Endk-rk-Ouqm, Nausea and Vomiting, Adult, Ufqp-ro-Vqcu, Abdominal Pain, Adult, Ellw-qi-Cyik, Dialysis, Dialysis Diet, Bxyl-vm-Ubru. Prescriptions for Protonix 40 mg Oral Tablet - take 1 tablet by ORAL route once daily; 30 tablet, Zofran 4 mg Oral Tablet - take 1 tablet by ORAL route every 12 hours As needed; 20 tablet, Phenergan 25 mg Rectal Suppository - insert 1 suppository by RECTAL route every 6 hours As needed; 15 suppository. and Forms are Medication Reconciliation Form, Thank You Letter, Antibiotic Education, Prescription Opioid Use. Follow up: Private Physician; When: Tomorrow; Reason: Recheck today's complaints, Continuance of care, Re-evaluation by your physician. Follow up: Aidan Franks; When: Tomorrow; Reason: Recheck today's complaints, Continuance of care, Re-evaluation by your physician. Follow up: Esa Gregorio; When: 2 - 3 days; Reason: Recheck today's complaints, Re-evaluation by your physician. Problem is new. Symptoms have improved. rn
--- NOTE | 2020-10-10 08:45 | ER ---
Nurse's Notes [facility] Name: Cathi Zaldivar Age: 39 yrs Sex: Female : 1980 Arrival Date: 10/10/2020 Time: 05:32 Bed 8 Private MD: Diagnosis: Vomiting;End stage renal disease;Gastritis, unspecified, with bleeding;Abdominal tenderness;Essential (primary) hypertension;Anemia, unspecified Presentation: 10/10 05:32 Chief complaint: EMS states: WOKE UP ABOUT AN HOUR AGO, HAVING LEFT SIDE ABDOMINAL rv PAIN, VOMITED BLOOD. WITH HISTORY OF GASTROPARESIS. STABBING/CRAMPING PAIN, 5/10 LEFT UPPER AND LOWER QUADRANT. PATIENT HAS BEEN ADMITTED RECENTLY FOR THE SAME REASON. Coronavirus screen: Client denies travel out of the [place] in the last 14 days. Ebola Screen: No symptoms or risks identified at this time. Initial Sepsis Screen: Does the patient meet any 2 criteria? No. Patient's initial sepsis screen is negative. Does the patient have a suspected source of infection? No. Patient's initial sepsis screen is negative. Risk Assessment: Do you want to hurt yourself or someone else? Patient reports no desire to harm self or others. Onset of symptoms was October 10, 2020 at 04:00. 05:32 Method Of Arrival: EMS: [facility] rv 05:32 Acuity: JESSICA 3 rv Triage Assessment: 05:36 General: Appears uncomfortable, Behavior is calm, cooperative. Pain: Complains of pain rv in left upper quadrant and left lower quadrant. EENT: No signs and/or symptoms were reported regarding the EENT system. Neuro: Level of Consciousness is awake, alert, obeys commands, Oriented to person, place, time, situation. Cardiovascular: Patient's skin is warm and dry. Respiratory: Airway is patent Respiratory effort is even, unlabored, Breath sounds are clear bilaterally. GI: Reports lower abdominal pain, upper abdominal pain, cramping, nausea, Pain is 8 out of 10 on a pain scale. vomiting. Derm: Skin is intact. 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 - Social history:: Smoking status: Patient reports the use of cigarette tobacco products, 3 CIGARETTES A DAY, Patient uses. Screenin:38 Abuse screen: Denies threats or abuse. Denies injuries from another. Nutritional rv screening: No deficits noted. Tuberculosis screening: No symptoms or risk factors identified. Fall Risk None identified. Assessment: 06:04 General: Appears distressed, uncomfortable, Behavior is calm, cooperative, appropriate jm8 for age. Pain: Complains of pain in abdomen Pain currently is 10 out of 10 on a pain scale. Quality of pain is described as crampy, stabbing, Pain began 1 hour ago. Neuro: No deficits noted. Level of Consciousness is awake, alert, obeys commands, Oriented to person, place, time. Cardiovascular: No deficits noted. Respiratory: No deficits noted. Airway is patent Trachea midline. GI: Reports lower abdominal pain, upper abdominal pain, nausea, vomiting, since 0500. : No deficits noted. EENT: No deficits noted. Derm: No deficits noted. Musculoskeletal: No deficits noted. 07:34 Reassessment: Patient and/or family updated on plan of care and expected duration. Pain ap3 level reassessed. Patient is alert, oriented x 3, equal unlabored respirations, skin warm/dry/pink. Patient states symptoms have improved. Patient states dialysis is M-W-F, and received a full dialysis treatment yesterday. She also states her pain has improved to a 2/10 which only "comes and goes". Patient semifowlers in bed. side rails up x's 2. bed is locked and in lowest position, call light within reach. restroom needs met. Significant other at bedside. . 08:10 Reassessment: Provider at bedside. Patient states symptoms have improved. However, ap3 patient then gets nauseous and vomited into emesis bag. New orders RCV'd. 09:06 Reassessment: Patients IV removed, catheter intact. Pressure and dressing applied. ap3 Patient contacted family member, awaiting for family members arrival for patients departure. Vital Signs: 05:32 BP 188 / 87; Pulse 70; Resp 17; Temp 97.7; Pulse Ox 100% ; Weight 75.4 kg; Height 5 ft. rv 2 in. (157.48 cm); Pain 8/10; 06:50 BP 206 / 102; Pulse 69; Resp 16; Pulse Ox 96% ; jm8 08:09 BP 153 / 87; Pulse 78; Pulse Ox 97% on R/A; ap3 05:32 Body Mass Index 30.40 (75.40 kg, 157.48 cm) rv Vitals: 06:10 Cardiac Rhythm Assessment Regular Sinus rhythm. 8 ED Course: 05:32 Patient arrived in ED. rv 05:36 Triage completed. rv 05:37 Luis Sandra MD is Attending Physician. juan 05:38 Isaac Gerardo RN is Primary Nurse. rv 05:38 Arm band placed on right wrist. Patient placed in the treatment room, on a stretcher, rv Patient notified of wait time. 05:38 Patient has correct armband on for positive identification. Pulse ox on. NIBP on. rv 06:09 Inserted saline lock: 18 gauge in left antecubital area, using aseptic technique. jm8 06:09 No provider procedures requiring assistance completed. jm8 06:20 XRAY Chest (1 view) In Process Unspecified. EDMS 08:44 Aidan Franks MD is Referral Physician. rn 08:44 Esa Gregorio MD is Referral Physician. rn 09:07 intact, bleeding controlled, No redness/swelling at site. Pressure dressing applied. ap3 Administered Medications: 06:08 Drug: ProTONIX 40 mg Route: IVP; Site: left antecubital; jm8 06:58 Follow up: Response: No adverse reaction 8 06:08 Drug: Zofran (Ondansetron) 4 mg Route: IVP; Site: left antecubital; jm8 06:58 Follow up: Response: No adverse reaction; Nausea is decreased jm8 06:15 Drug: morphine 4 mg Route: IVP; Site: left antecubital; jm8 06:58 Follow up: Response: No adverse reaction; Pain is decreased jm8 06:55 Drug: hydrALAZINE 10 mg Route: IV; Rate: per protocol; Site: left antecubital; jm8 07:33 Drug: hydrALAZINE 10 mg Route: IV; Rate: per protocol; Site: left antecubital; ap3 08:14 Drug: Zofran (Ondansetron) 4 mg Route: IVP; Site: right antecubital; ap3 08:43 Follow up: Response: No adverse reaction; Nausea is decreased ap3 08:50 Drug: morphine 4 mg {Note: patient is awake and alert .} Route: IVP; Site: left ap3 antecubital; 09:08 Follow up: Response: No adverse reaction; RASS: Alert and Calm (0) ap3 Outcome: 08:44 Discharge ordered by . rn 09:49 Discharged to home via wheelchair, with significant other. ap3 09:49 Condition: stable 09:49 Discharge instructions given to patient, Instructed on discharge instructions, follow up and referral plans. medication usage, Demonstrated understanding of instructions, follow-up care, medications, Prescriptions given X 3. 09:50 Patient left the ED. ap3 Signatures: Dispatcher [employer] EDMS Luis Sandra MD MD cha Nieto, Roman, MD MD rn Prokisch, Amanda, RN RN ap3 Isaac Gerardo RN RN rv Malcaba, Joseph, RN RN jm8
[2020-10-10 10:02] VITALS: TEMP 97.7
[2020-10-10 10:25] VITALS: BP 153/87; O2SAT 97
--- NOTE | 2020-10-12 08:02 | EKG ---
Test Date: 2020-10-10 Test Time: 06:06:05 Communications Planner: OLIVIA MEASUREMENT RESULTS: Intervals: Rate: 64 VA: 152 QRSD: 80 QT: 442 QTc: 455 [place]: P: 53 VA: 152 QRS: 38 T: 79 INTERPRETIVE STATEMENTS: Normal sinus rhythm Normal ECG Compared to ECG 09/30/2020 07:05:31 No significant changes Electronically Signed On 10-12-20 07:58:46 CDT by Juan Hogan
== END 2020-10-10 09:50 | disposition home or self-care (01) ==
LOC: ER 05:29
DX: K29.71 Gastritis, unspecified, with bleeding (principal); R10.819 Abdominal tenderness, unspecified site; E11.22 Type 2 diabetes mellitus with diabetic chronic kidney disease; I13.2 Hypertensive heart and chronic kidney disease with heart failure and with stage 5 chronic kidney disease, or end stage renal disease; I50.9 Heart failure, unspecified; N18.6 End stage renal disease; D63.1 Anemia in chronic kidney disease; F17.210 Nicotine dependence, cigarettes, uncomplicated; Z99.2 Dependence on renal dialysis; Z88.0 Allergy status to penicillin; Z88.5 Allergy status to narcotic agent; Z88.8 Allergy status to other drugs, medicaments and biological substances
CPT/HCPCS: 93005; 85025; 80048; 83735; 80076; 84484; 83880; 71045; 99284; J0360 ×2; C9113; J2405 ×2

== ENCOUNTER 2020-10-26 11:32 | Emergency (ER) | payer OTHER ==
--- OUTSIDE RECORDS SUMMARY | 2020-10-26 11:40 | XMS REPORT | Continuity of Care Document ---
:[address] [facility] t Address [address] [place] [address] Care Team Providers Name Role Phone Sharpless [...] kes - athy athy 00:00: Medical 00 [place] Ulcer of Ulcer of Disease [facility] - left foot left foot 00:00: [facility] [place] Peripheral Peripheral Disease Active [facility] neuropathy neuropathy 01-03 Pati kes - 00:00: Medical 00 [place] Hyperglyce Hyperglyce Disease Active [facility] 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 01-03 Pati kes - type 2 type 2 00:00: Medical diabetes diabetes 00 [place] mellitus mellitus Gastropare Gastropare Disease Active [facility] sis due to sis due to 01-03 Pati kes - DM DM 00:00: Medical 00 [place] Cyclic Cyclic Disease Active [facility] 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 00:00: Medica l 00 [place] Anxiety Anxiety Disease Active [facility] Medical 00 [place] Bipolar Bipolar Disease Active [facility] disorder disorder 01-03 [facility] - 00:[facility]: Medical 00 [place] Hypertensi Hypertensi Disease Active [facility] ve ve 01-03 [facility] - emergency emergency 00:00: [facility] [place] Allergies, Adverse Reactions, Alerts Allergy Allergy Status Severity Reaction(s) Onset Inactive Treating Comm ents Source Name Type Date Date Clinician Zolpidem Drug Active Other (See confusion [facility] Allergy Comments) 01-03 [facility] - 00:00: Medical 00 [place] Lisinopr Drug Active Other (See Unable to [facility] il Allergy Comments) 01-03 remember Luke [facility] - 00:00: Medical 00 [place] Nitrofur Drug Active Anaphylaxis Liver [facility] antoin Allergy 01-03 failure [facility] - Monohyd/ 00:00: Medical M-Cryst 00 [place] Penicill Drug Active Shortness Of [facility] ins Allergy Breath 01-03 [facility] - 00:00: Medical 00 [place] Guaifene Drug Active Other (See numbness [facility] sin Allergy Comments) 01-03 [facility] - 00:00: Medical 00 [place] Social History Social Habit Start Date Stop Date Quantity Comments Source Sex Assigned At [facility] Cigarettes smoked 2017-12-17 2017-12-17 MINERVA Paul - current (pack per 00:00:00 00:00:00 [facility] day) - Reported Cigarette 2017-12-17 2017-12-17 MINERVA Paul - pack-years 00:00:00 00:00:00 [facility] Alcohol intake 2017-12-17 2017-12-17 Current MINERVA Desouzak es - 00:00:00 00:00:00 non-drinker of Medical Ce nter alcohol (finding) Tobacco Comment 2017-01-03 2017-01-03 patient stated MNIERVA nam Lujazmin - 00:00:00 00:00:00 she stopped [address] month ago. History of tobacco 2016-12-04 Smoker MINERVA Paul - use 00:00:00 [facility] Smoking Status Start Date Stop Date Source Former smoker 2017-12-17 00:00:00 2017-12-17 00:00:00 [facility] Medications Ordered Filled Start Stop [...] Medica l 59 Center hydrALAZINE Yes 100mg [id number] Take [address] (APRESOLINE 7-20 [id number] mg by L ukes - ) 100 MG 15:20: 3D mouth 3 Medica l tablet 59 (three) Center times daily. magnesium 2017-0 Yes 400mg QD Take [address] oxide 7-20 mg by [facility] - (MAG-OX) 15:20: mouth Medical 400 mg 59 daily. Center tablet metoclopram 2017-0 Yes 10mg Q.[id number] Take [address] gadiel HCl 7-20 [id number] by mouth 3 [facility] - (REGLAN) 10 [...] Facility Department ID 2020-09-24 2020-09-24 Refill Carlos [facility] [id number] 00:00:00 00:00:00 Jose Luis Sims [id number] [place] [id number] Gale [id number] [address] 2020-09-09 2020-09-09 Patient Daniel KYIMELDA [id number] 00:00:00 00:00:00 Outreach Earl [facility] [id number] [facility] [id number] PAVILLION [id number] 2020-07-23 2020-07-23 Office Black [facility] [id number] 13:31:20 14:37:36 Visit Deja [facility] [id number] [facility] [id number] PAVILLION [id number] 2020-01-25 2020-01-31 Inpatient 1 Rei Waldron [facility] [id number] 21:31:00 18:15:00 Rei Waldron [facility] 2016-07-23 2016-07-[address] [facility] [id number] 20:04:00 10:20:00 Luna 10 2016-06-10 2016-06-15 Outpatient Franck, [facility] [id number] 10:02:00 12:23:00 Joe Yan 09 2014-06-25 2014-06-26 Outpatient Courtney [facility] [id number] 23:25:00 09:14:00 Atul Sirisha Cem 2013-04-14 2013-04-[address] [facility] [id number] Memoria 21:04:00 01:45:00 [place] Vin 07 l [facility] 2013-04-14 2013-04-[address] [facility] [id number] Memoria 21:04:00 01:45:00 [place] Vin 07 l [facility] 2013-04-14 2013-04-[address] [facility] [id number] Memoria 21:04:00 01:45:00 Vin Vin 07 l [facility] 2013-04-14 2013-04-[address] [facility] [id number] Memoria 21:04:00 01:45:00 [place] 07 l [facility] 2013-04-14 2013-04-[address] [facility] [id number] Memoria 21:04:00 01:45:00 Vin Vin 07 l [facility] Results Test Description Test [...] the main Lab for analysi s. 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 Draw a venous Glucose and send to the main Lab for analysis. POC [id number] 19:32:05 Test Item Value Reference Range Interpretation Comments Glucose POC (test 184 mg/dL 70-115 H If you con sheet metal shop foreman your code = Glucose POC) patient critically ill, the Merlin-Accu Check Infrom II meter should not be used for Glucose determination. Draw a venous Glucose and send to the main Lab for analysis. POC [id number] 17:16:35 Test Item Value Reference Range Interpretation Comments Glucose POC (test 281 mg/dL 70-115 H Notify RN or MDIf you code = Glucose POC) consider your patient critically ill, the Merlin-Accu Chec k Infrom II meter should not be used for Glucos e determination. Draw a venous Glucose and send to the main Lab for analysis. POC [id number] 12:00:38 Test Item Value Reference Range Interpretation Comments Glucose POC (test 138 mg/dL 70-115 H Notify RN or MDIf you code = Glucose POC) consider your patient critically ill, the Merlin-Accu Chec k Infrom II meter should not be used for Glucos e determination. Draw a venous Glucose and send to the main Lab for analysis. POC [id number] 07:41:32 Test Item Value Reference Range Interpretation Comments Glucose POC (test 206 mg/dL 70-115 H Notify RN or MDIf you code = Glucose POC) consider your patient critically ill, the Merlin-Accu Chec k Infrom II meter should not be used for Glucos e determination. Draw a venous Glucose and send to the main Lab for analysis. Urinalysis [id number] 21:07:21 Test Item Value Reference Range Interpretation Comments UA WBC (test code = UA WBC) TNTC 0-5 A UA RBC (test code = UA RBC) 6-10 0-5 A UA Bacteria (test code = UA Bacteria) Profuse A UA Squam Epithelial (test code = UA 6-10 A Squam Epithelial) Urinalysis with Culture, if [id number] 20:35:14 Test Item Value Reference Range Interpretation [...] Micro Indicated Not Indicated A Ind?) POC [id number] 19:06:34 Test Item Value Reference Range Interpretation Comments Glucose POC (test 207 mg/dL 70-115 H If you con sheet metal shop foreman your code = Glucose POC) patient critically ill, the Merlin-Accu Check Infrom II meter should not be used for Glucose determination. Draw a venous Glucose and send to the main Lab for analysis. POC [id number] 17:12:03 Test Item Value Reference Range Interpretation Comments Glucose POC (test 173 mg/dL 70-115 H Notify RN or MDIf you code = Glucose POC) consider your patient critically ill, the Merlin-Accu Chec k Infrom II meter should not be used for Glucos e determination. Draw a venous Glucose and send to the main Lab for analysis. POC [id number] 11:58:01 Test Item Value Reference Range Interpretation Comments Glucose POC (test 289 mg/dL 70-115 H Notify RN or MDIf you code = Glucose POC) consider your patient critically ill, the Merlin-Accu Chec k Infrom II meter should not be used for Glucos e determination. Draw a venous Glucose and send to the main Lab for analysis. POC [id number] 08:19:37 Test Item Value Reference Range Interpretation Comments Glucose POC (test 201 mg/dL 70-115 H Notify RN or MDIf you code = Glucose POC) consider your patient critically ill, the Merlin-Accu Chec k Infrom II meter should not be used for Glucos e determination. Draw a venous Glucose and send to the main Lab for analysis. POC [id number] 20:37:35 Test Item Value Reference Range Interpretation Comments Glucose POC (test 272 mg/dL 70-115 H If you con sheet metal shop foreman your code = Glucose POC) patient critically ill, the Merlin-Accu Check Infrom II meter should not be used for Glucose determination. Draw a venous Glucose and send to the main Lab for analysis. POC [id number] 17:23:05 Test Item Value Reference Range Interpretation Comments Glucose POC (test 229 mg/dL 70-115 H If you con sheet metal shop foreman your code = Glucose POC) patient critically ill, the Merlin-Accu Check Infrom II meter should not be used for Glucose determination. Draw a venous Glucose and send to the main Lab for analysis. POC [id number] 12:01:01 Test Item Value Reference Range Interpretation Comments Glucose POC (test 155 mg/dL 70-115 H If you con sheet metal shop foreman your code = Glucose POC) patient critically ill, the Merlin-Accu Check Infrom II meter should not be used for Glucose determination. Draw a venous Glucose and send to the main Lab for analysis. POC [id number] 08:07:32 Test Item Value Reference Range Interpretation Comments Glucose POC (test 248 mg/dL 70-115 H If you con sheet metal shop foreman your code = Glucose POC) patient critically ill, the Merlin-Accu Check Infrom II meter should not be used for Glucose determination. Draw a venous Glucose and send to the main Lab for analysis. IG [id number] 06:50:39 Test Item Value Reference Range Interpretation Comments IG (test code = IG) 0.7 % 0.0-5.0 IG Abs (test code = IG Abs) 0 x10 N Complete Blood Count with [id number] 06:50:38 Test Item Value Reference Range Interpretation [...] code = IPF) 0 % N Automated [id number] 06:50:38 Test Item Value Reference Range Interpretation Comments Neutro Auto (test code = Neutro 50.3 % 36.0-70.0 Auto) Lymph Auto (test code = Lymph Auto) 38.6 % 12.0-44.0 [place] Auto (test code = [place] Auto) 7.3 % 0.0-11.0 Eos, Auto (test code = Eos, Auto) 2.4 % 0.0-7.0 Basophil Auto (test code = Basophil 0.7 % 0.0-2.0 Auto) Neutro Absolute (test code = Neutro 3.0 x10 1.6-7.4 Absolute) Lymph Absolute (test code = Lymph 2.28 x10 .50-4.60 Absolute) [place] Absolute (test code = [place] .43 x10 .00-1.20 Absolute) Eos Absolute (test code = Eos 0.14 x10 0.00-0.74 Absolute) Baso Absolute (test code = Baso 0.04 x10 0.00-0.21 Absolute) Basic Metabolic [id number] 05:38:20 Test Item Value Reference Range Interpretation [...] = Lipemia) 0 mg/dL 8-11 Basic Metabolic [id number] 05:38:20 Test Item Value Reference Range Interpretation [...] = 0 mg/dL 8-11 Lipemia) Basic Metabolic [id number] 05:38:20 Test Item Value Reference Range Interpretation [...] code = 0 mg/dL 8-11 Lipemia) POC [id number] 20:28:33 Test Item Value Reference Range Interpretation Comments Glucose POC (test 169 mg/dL 70-115 H If you con sheet metal shop foreman your code = Glucose POC) patient critically ill, the Merlin-Accu Check Infrom II meter should not be used for Glucose determination. Draw a venous Glucose and send to the main Lab for analysis. POC [id number] 16:39:30 Test Item Value Reference Range Interpretation Comments Glucose POC (test 103 mg/dL 70-115 If you con sheet metal shop foreman your code = Glucose POC) patient critically ill, the Merlin-Accu Check Infrom II meter should not be used for Glucose determination. Draw a venous Glucose and send to the main Lab for analysis. RPR [id number] 12:08:56 Test Item Value Reference Range Interpretation Comments RPR Qual (test code = RPR Qual) Non-Reactive Non-Reactive Reactive Control (test code = Reactive Reactive Control) Weak Reactive Control (test Weak Reactive code = Weak Reactive Control) Non-Reactive Control (test code Non-Reactive = Non-Reactive Control) Lot # (test code = Lot #) [id number] N Expiration Dt (test code = 03-20-2021 N Expiration Dt) POC [id number] 11:52:31 Test Item Value Reference Range Interpretation Comments Glucose POC (test 250 mg/dL 70-115 H If you con sheet metal shop foreman your code = Glucose POC) patient critically ill, the Merlin-Accu Check Infrom II meter should not be used for Glucose determination. Draw a venous Glucose and send to the main Lab for analysis. POC [id number] 07:55:29 Test Item Value Reference Range Interpretation Comments Glucose POC (test 205 mg/dL 70-115 H If you con sheet metal shop foreman your code = Glucose POC) patient critically ill, the Merlin-Accu Check Infrom II meter should not be used for Glucose determination. Draw a venous Glucose and send to the main Lab for analysis. Lipid [id number] 05:46:04 Test Item Value Reference Range Interpretation [...] LDL/HDL Ratio=L DL Calc/HDL Chol Thyroid Stimulating [id number] 05:46:04 Test Item Value Reference Range Interpretation Comments TSH (test code = TSH) 3.274 mcIU/mL 0.550-4.780 Hemoglobin [id number] 05:41:08 Test Item Value Reference Range Interpretation Comments Hemoglobin A1c (test code 7.6 % 4.0-5.8 H Di abetic >=6.5 = Hemoglobin A1c) %Prediabet es 5.7-6.4 %Normal <5.7 % Hepatitis B Surface [id number] 21:19:36 Test Item Value Reference Range Interpretation Comments Hep Bs Ag (test code = Hep Bs Non-Reactive Non-Reactive Ag) Novel Coronavirus SARS-CoV-2, [id number] 11:16:16 Test Item Value Reference Range Interpretation [...] Emergency Use Authorization." Novel Coronavirus (COVID-19), EMANUEL [id number] 11:11:24TNPTest not sent and performed at [facility].Rapid was perfomed in Microbiology.Wrong covid test was ord ered.Urine [id number] 00:17:49 Test Item Value Reference Range Interpretation [...] days. U Propoxyphene (test Negative Negative [facility] is code = U Propoxyphene) presu mptive positive if the analyte concentration i s equal to or greater t scott 300 ng/ml.If confir mation of positive res ult is desired, please order Propoxyphene Confirmation wi thin 7 days. Alcohol [id number] 00:17:29 Test Item Value Reference Range Interpretation Comments Ethanol Level 9.0 mg/dL N The pharmacolo gical (test code = response to blo od alcohol Ethanol Level) levels may va ry from individual to i ndividual. The fatal omkar ntration has been report ed to be >400 mg/dl. Comprehensive Metabolic [id number] 00:17:28 Test Item Value Reference Range Interpretation [...] = Lipemia) 0 g/dL 1-2 Comprehensive Metabolic [id number] 00:17:28 Test Item Value Reference Range Interpretation [...] = 0 g/dL 1-2 Lipemia) Comprehensive Metabolic [id number] 00:17:28 Test Item Value Reference Range Interpretation [...] g/dL 1-2 Lipemia) Complete Blood Count with [id number] 23:26:28 Test Item Value Reference Range Interpretation [...] code = IPF) 0 % N Automated [id number] 23:26:28 Test Item Value Reference Range Interpretation Comments Neutro Auto (test code = Neutro 67.1 % 36.0-70.0 Auto) Lymph Auto (test code = Lymph Auto) 23.3 % 12.0-44.0 [place] Auto (test code = [place] Auto) 5.8 % 0.0-11.0 Eos, Auto (test code = Eos, Auto) 2.3 % 0.0-7.0 Basophil Auto (test code = Basophil 0.8 % 0.0-2.0 Auto) Neutro Absolute (test code = Neutro 6.0 x10 1.6-7.4 Absolute) Lymph Absolute (test code = Lymph 2.10 x10 .50-4.60 Absolute) [place] Absolute (test code = [place] .52 x10 .00-1.20 Absolute) Eos Absolute (test code = Eos 0.21 x10 0.00-0.74 Absolute) Baso Absolute (test code = Baso 0.07 x10 0.00-0.21 Absolute) IG [id number] 23:26:28 Test Item Value Reference Range Interpretation Comments IG (test code = IG) 0.7 % 0.0-5.0 IG Abs (test code = IG Abs) 0 x10 N HERPES VIRUS ANTIBODY, [id number] 21:46:00 Test Item Value Reference Range Interpretation Comments HERPES VIRUS IGM (AKER) Negative SE E ATTACHMENT (test code = 1808) BLOOD [id number] 06:00:00 Test Item Value Reference Range Interpretation Comments CULTURE (BEAKER) (test No growth in 5 days code = 1095) BLOOD [id number] 06:00:00 Test Item Value Reference Range Interpretation Comments CULTURE (BEAKER) (test No growth in 5 days code = 1095) POCT-GLUCOSE [id number] 12:11:00 Test Item Value Reference Range Interpretation Comments POC-GLUCOSE METER 154 mg/dL 70-110 H TESTED AT [place] [address] ([facility]) (test code = [facility] Eduin [facility] 1538) [address] POCT-GLUCOSE [id number] 07:53:00 Test Item Value Reference Range Interpretation Comments POC-GLUCOSE METER 87 mg/dL 70-110 TESTED AT [place] [address] ([facility]) (test code = [facility] [address] 1538) POCT-GLUCOSE [id number] 06:49:00 Test Item Value Reference Range Interpretation Comments POC-GLUCOSE METER 79 mg/dL 70-110 TESTED AT [place] [address] ([facility]) (test code = [facility] [address] 1538) COMPREHENSIVE METABOLIC [id number] 06:15:00 Test Item Value Reference Range Interpretation [...] S NOT APPLICABLE FOR DIALYSIS PATIEN TS. [id number] 06:11:00 Test Item Value Reference Range Interpretation Comments MAGNESIUM (BEAKER) (test code = 2.1 mg/dL 1.6-2.6 627) HEPATIC FUNCTION [id number] 06:11:00 Test Item Value Reference Range Interpretation [...] code = 513 U/L 6-55 H 347) [id number] 05:30:00 Test Item Value Reference Range Interpretation Comments FIBRINOGEN LEVEL (BEAKER) (test 368 mg/dl 225-434 code = 658) [id number] 05:30:00 Test Item Value Reference Range Interpretation Comments PARTIAL THROMBOPLASTIN TIME 42.2 seconds 22.5-36.0 H (BEAKER) (test code = 760) PROTHROMBIN [id number] 05:29:00 Test Item Value Reference Range Interpretation Comments PROTIME (BEAKER) (test code = 14.8 seconds 11.7-14.7 H 759) INR (BEAKER) (test code = 370) 1.2 <=5.9 RECOMMENDED COUMADIN/WARFARIN INR THERAPY RANGESSTANDARD DOSE: 2.0 - 3.0 Includes: PROPHYLAXIS forvenous thrombosis, systemic embolization; TREATMENT for venous thrombosis and/or pulmonary embolus.HIGH RISK: Target INR is 2.5-3.5 for patients with mechanical heart valves.POCT-GLUCOSE [id number] 21:09:00 Test Item Value Reference Range Interpretation Comments POC-GLUCOSE METER 178 mg/dL 70-110 H TESTED AT [place] [address] ([facility]) (test code = [facility] 1538) [address] POCT-GLUCOSE [id number] 17:18:00 Test Item Value Reference Range Interpretation Comments POC-GLUCOSE METER 178 mg/dL 70-110 H TESTED AT [place] [address] ([facility]) (test [facility] [address] POCT-GLUCOSE [id number] 13:48:00 Test Item Value Reference Range Interpretation Comments POC-GLUCOSE METER 150 mg/dL 70-110 H TESTED AT [place] [address] ([facility]) (test code = [facility] [place] 1538) [address] FACTOR 5 ACTIVITY (BLEEDING RISK)2017-01-06 10:04:00 Test Item Value Reference Range Interpretation Comments FACTOR V ACTIVITY (MADIE) (test code 90.0 % 60.0-150.0 = 665) Effective 10/24/2013: Reference Range Change-Adult onlyNew: 60.0-150.0 Previous: 50.0-150.0CYTOMEGALOVIRUS ANTIBODY, [id number] 09:42:00 Test Item Value Reference Range Interpretation Comments CYTOMEGALOVIRUS IGM ANTIBODY Negative (BEAKER) (test code = 816) HERPES VIRUS ANTIBODY, [id number] 08:59:00 Test Item Value Reference Range Interpretation Comments 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) (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 G 1807) CYTOMEGALOVIRUS ANTIBODY, [id number] 08:59:00 Test Item Value Reference Range Interpretation Comments CYTOMEGALOVIRUS IGG ANTIBODY Positive (BEAKER) (test code = 790) EBV-VCA ANTIBODY, [id number] 08:59:00 Test Item Value Reference Range Interpretation Comments JASE-WALL VCA IGG (BEAKER) (test Positive code = 983) EBV-VCA ANTIBODY, [id number] 08:59:00 Test Item Value Reference Range Interpretation Comments JASE-WALL VCA IGM (BEAKER) (test Negative code = 984) POCT-GLUCOSE [id number] 07:59:00 Test Item Value Reference Range Interpretation Comments POC-GLUCOSE METER 81 mg/dL 70-110 TESTED AT [facility] [address] ([facility]) (test code = [place] Denny [facility] [address] 1538) COMPREHENSIVE METABOLIC [id number] 06:23:00 Test Item Value Reference Range Interpretation [...] S NOT APPLICABLE FOR DIALYSIS PATIEN TS. [id number] 06:17:00 Test Item Value Reference Range Interpretation Comments MAGNESIUM (BEAKER) (test code = 1.8 mg/dL 1.6-2.6 627) HEPATIC FUNCTION [id number] 06:17:00 Test Item Value Reference Range Interpretation [...] code = 779 U/L 6-55 H 347) [id number] 06:00:00 Test Item Value Reference Range Interpretation Comments FIBRINOGEN LEVEL (BEAKER) (test 390 mg/dl 225-434 code = 658) [id number] 06:00:00 Test Item Value Reference Range Interpretation Comments PARTIAL THROMBOPLASTIN TIME 40.2 seconds 22.5-36.0 H ([facility]) (test code = 760) PROTHROMBIN [id number] 05:59:00 Test Item Value Reference Range Interpretation Comments PROTIME ([facility]) (test code = 14.6 seconds 11.7-14.7 759) INR ([facility]) (test code = 370) 1.2 <=5.9 RECOMMENDED COUMADIN/WARFARIN INR THERAPY RANGESSTANDARD DOSE: 2.0 - 3.0 Includes: PROPHYLAXIS forvenous thrombosis, systemic embolization; TREATMENT for venous thrombosis and/or pulmonary embolus.HIGH RISK: Target INR is 2.5-3.5 for patients with mechanical heart valves.POCT-GLUCOSE [id number] 21:46:00 Test Item Value Reference Range Interpretation Comments POC-GLUCOSE METER 153 mg/dL 70-110 H TESTED AT [place] [address] ([facility]) (test code = JULIADENZEL Eduin [facility] 1538) [address] POCT-GLUCOSE [id number] 18:47:00 Test Item Value Reference Range Interpretation Comments POC-GLUCOSE METER 181 mg/dL 70-110 H TESTED AT [place] [address] ([facility]) (test code = [place] Eduin [facility] 1538) [address] POCT-GLUCOSE [id number] 12:40:00 Test Item Value Reference Range Interpretation Comments POC-GLUCOSE METER 178 mg/dL 70-110 H TESTED AT [place] [address] ([facility]) (test code = [facility] 1538) [address] POCT-GLUCOSE [id number] 07:51:00 Test Item Value Reference Range Interpretation Comments POC-GLUCOSE METER 166 mg/dL 70-110 H TESTED AT [place] [address] ([facility]) (test code = [facility] 1538) [address] COMPREHENSIVE METABOLIC [id number] 03:26:00 Test Item Value Reference Range Interpretation Comments TOTAL PROTEIN 5.2 gm/dL 6.0-8.3 L ([facility]) (test code = 770) ALBUMIN ([facility]) 2.3 g/dL 3.5-5.0 L (test code = [...] S NOT APPLICABLE FOR DIALYSIS PATIEN TS. [id number] 03:22:00 Test Item Value Reference Range Interpretation Comments MAGNESIUM (BEAKER) (test code = 1.4 mg/dL 1.6-2.6 L 627) HEPATIC FUNCTION [id number] 03:22:00 Test Item Value Reference Range Interpretation [...] code = 1009 U/L 6-55 H 347) [id number] 03:12:00 Test Item Value Reference Range Interpretation Comments AMMONIA (BEAKER) (test code = 348) 29 mol/L 18-72 [id number] 03:10:00 Test Item Value Reference Range Interpretation Comments PARTIAL THROMBOPLASTIN TIME 42.3 seconds 22.5-36.0 H (BEAKER) (test code = 760) PROTHROMBIN [id number] 03:09:00 Test Item Value Reference Range Interpretation Comments PROTIME (BEAKER) (test code = 16.4 seconds 11.7-14.7 H 759) INR (BEAKER) (test code = 370) 1.3 <=5.9 RECOMMENDED COUMADIN/WARFARIN INR THERAPY RANGESSTANDARD DOSE: 2.0 - 3.0 Includes: PROPHYLAXIS forvenous thrombosis, systemic embolization; TREATMENT for venous thrombosis and/or pulmonary embolus.HIGH RISK: Target INR is 2.5-3.5 for patients with mechanical heart valves.[id number] 03:09:00 Test Item Value Reference Range Interpretation Comments FIBRINOGEN LEVEL (BEAKER) (test 413 mg/dl 225-434 code = 658) CBC W/PLT COUNT & AUTO [id number] 03:09:00 Test Item Value Reference Range Interpretation [...] L 0.00-0.20 (test code = 417) 0.00POCT-GLUCOSE [id number] 22:33:00 Test Item Value Reference Range Interpretation Comments POC-GLUCOSE METER 230 mg/dL 70-110 H TESTED AT [facility] ([facility]) (test code = [facility] Eduin [facility] 1538) [address] POCT-GLUCOSE [id number] 18:17:00 Test Item Value Reference Range Interpretation Comments POC-GLUCOSE METER 222 mg/dL 70-110 H TESTED AT [facility] ([facility]) (test code = [facility] 1538) [address] COMPREHENSIVE METABOLIC [id number] 16:59:00 Test Item Value Reference Range Interpretation [...] PATIEN TS. PERIPHERAL BLOOD SMEAR - PATHOLOGIST [id number] 15:30:00 Test Item Value Reference Range Interpretation Comments RBC MORPHOLOGY Polychromasia (BEAKER) (test code = 2846) RBC MORPHOLOGY Anisocytosis (BEAKER) (test code = 56895) PERIPHERAL SMR REVIEW Cell counts confirmed (BEAKER) (test code = 2780) [id number] Josefina Lara M.D. (BEAKER) (test code = (electronic signature) 9938) PROTHROMBIN [id number] 15:12:00 Test Item Value Reference Range Interpretation [...] Reference Range Interpretation Comments ANTI-NUCLEAR ANTIBODY (IVETTE) ([employer]) Negative Negative (test code = 418) POCT-GLUCOSE [id number] 12:47:00 Test Item Value Reference Range Interpretation Comments POC-GLUCOSE METER 212 mg/dL 70-110 H TESTED AT [facility] ([facility] [employer]) (test code = [place] 1538) [address] [id number] 12:34:00 Test Item Value Reference Range Interpretation Comments RPR SCREEN ([employer]) (test code = Nonreactive Nonreactive 420) CLOSTRIDIUM DIFFICILE TOXIN [id number] 10:12:00 Test Item Value Reference Range Interpretation Comments CLOSTRIDIUM DIFFICILE TOXIN, PCR Not Detected Not Detected ([employer]) (test code = 1525) This qualitative real-time [...] Reference Range Interpretation Comments FACTOR V ACTIVITY ([employer]) (test code 86.0 % 60.0-150.0 = 665) Effective 10/24/2013: Reference Range Change-Adult onlyNew: 60.0-150.0 Previous: 50.0-150.0FACTOR 5 ACTIVITY (BLEEDING RISK)2017-01-04 09:13:00 Test Item Value Reference Range Interpretation Comments FACTOR V ACTIVITY (BEAKER) (test code 56.0 % 60.0-150.0 L = 665) Effective 10/24/2013: Reference Range Change-Adult onlyNew: 60.0-150.0 Previous: 50.0-150.0POCT-GLUCOSE [id number] 06:40:00 Test Item Value Reference Range Interpretation Comments POC-GLUCOSE METER 167 mg/dL 70-110 H TESTED AT [facility] [address] (BEAKER) (test code = [place] 1538) [address] COMPREHENSIVE METABOLIC [id number] 04:08:00 Test Item Value Reference Range Interpretation [...] ESTIM ATED GFR. Specimen slightly ictericHEPATIC FUNCTION [id number] 04:06:00 Test Item Value Reference Range Interpretation [...] 1091 U/L 6-55 H 347) Specimen slightly [id number] 04:01:00 Test Item Value Reference Range Interpretation Comments FIBRINOGEN LEVEL (BEAKER) (test 379 mg/dl 225-434 code = 658) [id number] 04:01:00 Test Item Value Reference Range Interpretation Comments PARTIAL THROMBOPLASTIN TIME 40.7 seconds 22.5-36.0 H (BEAKER) (test code = 760) PROTHROMBIN [id number] 04:00:00 Test Item Value Reference Range Interpretation [...] L 0.00-0.20 (test code = 417) 0.00POCT-GLUCOSE [id number] 00:19:00 Test Item Value Reference Range Interpretation Comments POC-GLUCOSE METER 159 mg/dL 70-110 H TESTED AT [facility] [address] (BEAKER) (test code = [place] 1538) [address] POCT-GLUCOSE [id number] 18:56:00 Test Item Value Reference Range Interpretation Comments POC-GLUCOSE METER 192 mg/dL 70-110 H TESTED AT [facility] [address] (BEAKER) (test code = [place] 1538) [address] COMPREHENSIVE METABOLIC [id number] 16:55:00 Test Item Value Reference Range Interpretation [...] CALCULATE ESTIM ATED GFR. Specimen slightly ictericPROTHROMBIN [id number] 16:37:00 Test Item Value Reference Range Interpretation Comments PROTIME (BEAKER) (test code = 20.9 seconds 11.7-14.7 H 759) INR (BEAKER) (test code = 370) 1.8 <=5.9 RECOMMENDED COUMADIN/WARFARIN INR THERAPY RANGESSTANDARD DOSE: 2.0 - 3.0 Includes: PROPHYLAXIS forvenous thrombosis, systemic embolization; TREATMENT for venous thrombosis and/or pulmonary embolus.HIGH RISK: Target INR is 2.5-3.5 for patients with mechanical heart valves.HEPATITIS B SURFACE [id number] 14:05:00 Test Item Value Reference Range Interpretation Comments HEPATITIS B SURFACE ANTIBODY < mIU/mL <8.0 (BEAKER) (test code = 647) HEPATITIS B CORE ANTIBODY, [id number] 13:43:00 Test Item Value Reference Range Interpretation Comments HEPATITIS B CORE TOTAL ANTIBODY Nonreactive Nonreactive (BEAKER) (test code = 497) BLOOD GAS, [id number] 13:35:00 Test Item Value Reference Range Interpretation [...] code = 1819) 28.0 % URINALYSIS W/ [id number] 13:16:00 Test Item Value Reference Range Interpretation [...] 1584) SOURCE(BEAKER) (test code = Urine, [place] 1845) VITAMIN D, [id number] 13:14:00 Test Item Value Reference Range Interpretation Comments VITAMIN D 25-OH (BEAKER) (test code = < ng/mL 13.0-47.8 L 2764) ALPHA FETOPROTEIN (AFP), TUMOR [id number] 13:06:00 Test Item Value Reference Range Interpretation Comments ALPHA-FETOPROTEIN (BEAKER) (test code < ng/mL <10.0 = 1094) Effective 05/08/2014: Reference Range ChangeNew: <10.0 Previous: 0.0-8.0 HEMOGLOBIN [id number] 13:05:00 Test Item Value Reference Range Interpretation Comments HEMOGLOBIN A1C (BEAKER) (test code = 7.6 % 4.3-6.1 H 368) CARCINOEMBRYONIC ANTIGEN (CEA)2017-01-03 12:59:00 Test Item Value Reference Range Interpretation Comments CARCINOEMBRYONIC ANTIGEN (BEAKER) 2.0 ng/mL 0.0-5.0 (test code = 685) [id number] 12:59:00 Test Item Value Reference Range Interpretation Comments FERRITIN (BEAKER) (test code = 1841 ng/mL 5-275 H 361) Effective 05/08/2014: Reference Range ChangeNew: Male 5-275 Previous: Male 22-322 Female 5-275 Female [id number] 12:58:00 Test Item Value Reference Range Interpretation Comments T4 TOTAL (BEAKER) (test code = 895) 4.5 ug/dL 4.9-11.7 L [id number] 12:58:00 Test Item Value Reference Range Interpretation Comments THYROID STIMULATING HORMONE 1.79 uIU/mL 0.35-4.94 (BEAKER) (test code = 772) [id number] 12:58:00 Test Item Value Reference Range Interpretation Comments T3 TOTAL (BEAKER) (test code = 656) 34 ng/dL 48-159 L Effective 05/08/2014: Reference Range ChangeNew: 48-159 Previous: 60-181 CALCIUM, [id number] 12:47:00 Test Item Value Reference Range Interpretation Comments CALCIUM IONIZED (BEAKER) (test 1.05 mmol/L 1.12-1.27 L code = 698) PH, BLOOD (BEAKER) (test code = 7.43 1810) [id number] 12:42:00 Test Item Value Reference Range Interpretation [...] % 20-55 (test code = 2590) URIC [id number] 12:40:00 Test Item Value Reference Range Interpretation Comments URIC ACID (BEAKER) (test code = 16.0 mg/dL 2.6-7.2 H 773) Specimen slightly ictericLIPID [id number] 12:40:00 Test Item Value Reference Range Interpretation [...] 160-189 Very High >=190 Specimen slightly ictericBILIRUBIN, [id number] 12:40:00 Test Item Value Reference Range Interpretation Comments BILIRUBIN DIRECT (MADIE) (test 2.4 mg/dL 0.1-0.5 H code = 706) GAMMA GLUTAMYL TRANSFERASE (GGT)2017-01-03 12:40:00 Test Item Value Reference Range Interpretation Comments GAMMA GLUTAMYL TRANSFERASE (MADIE) 53 U/L 9-64 (test code = 364) Specimen slightly [id number] 12:39:00 Test Item Value Reference Range Interpretation Comments ETHANOL (MADIE) (test code = 400) < mg/dL <=10 SCREEN, [id number] 12:36:00 Test Item Value Reference Range Interpretation Comments TEST URINE (MADIE) (test Negative code = 583) POCT-GLUCOSE [id number] 12:34:00 Test Item Value Reference Range Interpretation Comments POC-GLUCOSE METER 189 mg/dL 70-110 H TESTED AT [facility] (MADIE) (test code = [place] 1538) [address] HIV-1 ANTIGEN WITH HIV-1/2 [id number] 11:58:00 Test Item Value Reference Range Interpretation Comments HIV-1 ANTIGEN WITH HIV 1\\T\\2 Nonreactive Nonreactive ANTIBODY (2) (CHANDNICueSongs) (test code = 2586) TROPONIN [id number] 09:44:00 Test Item Value Reference Range Interpretation [...] Previous: 0.0-4.9CK-MB Reference Range:<6.7 Normal6.7-10.0 Borderline>10.0 AbnormalACETAMINOPHEN [id number] 08:31:00 Test Item Value Reference Range Interpretation Comments ACETAMINOPHEN LEVEL (BEAKER) (test < ug/mL 10.0-30.0 L code = 344) TROPONIN [id number] 05:53:00 Test Item Value Reference Range Interpretation [...] acute neurological disease, and persistent tachyarrhythmia.BASIC METABOLIC [id number] 05:53:00 Test Item Value Reference Range Interpretation [...] TO CALCULA TE ESTIMATED GFR. Specimen slightly [id number] 05:52:00 Test Item Value Reference Range Interpretation Comments PHOSPHORUS (BEAKER) (test code = 5.7 mg/dL 2.3-4.7 H 604) HEPATIC FUNCTION [id number] 05:52:00 Test Item Value Reference Range Interpretation [...] Specimen slightly ictericCREATINE KINASE (CK), TOTAL AND [id number] 05:52:00 Test Item Value Reference Range Interpretation Comments CREATINE KINASE TOTAL (BEAKER) 341 U/L 29-200 H (test code = 380) CREATINE KINASE-MB (BEAKER) (test 5.4 ng/mL 0.0-6.6 code = 750) CREATINE KINASE-MB INDEX (BEAKER) 1.6 % (test code = 395) Effective 05/08/2014: CK-MB Reference Range ChangeNew: 0.0-6.6 Previous: 0.0-4.9CK-MB Reference Range:<6.7 Normal6.7-10.0 Borderline>10.0 AbnormalCBC W/PLT COUNT & AUTO [id number] 05:48:00 Test Item Value Reference Range Interpretation [...] K/ L 0.00-0.20 (test code = 417) [id number] 05:09:00 Test Item Value Reference Range Interpretation Comments FIBRINOGEN LEVEL (BEAKER) (test 427 mg/dl 225-434 code = 658) [id number] 05:09:00 Test Item Value Reference Range Interpretation Comments PARTIAL THROMBOPLASTIN TIME 36.2 seconds 22.5-36.0 H (BEAKER) (test code = 760) PROTHROMBIN [id number] 05:08:00 Test Item Value Reference Range Interpretation Comments PROTIME (BEAKER) (test code = 22.8 seconds 11.7-14.7 H 759) INR (BEAKER) (test code = 370) 2.0 <=5.9 RECOMMENDED COUMADIN/WARFARIN INR THERAPY RANGESSTANDARD DOSE: 2.0 - 3.0 Includes: PROPHYLAXIS forvenous thrombosis, systemic embolization; TREATMENT for venous thrombosis and/or pulmonary embolus.HIGH RISK: Target INR is 2.5-3.5 for patients with mechanical heart valves.HEPATITIS PANEL, [id number] 03:40:00 Test Item Value Reference Range Interpretation Comments HEPATITIS A IGM ANTIBODY (BEAKER) Nonreactive Nonreactive (test code = 498) HEPATITIS B CORE IGM ANTIBODY Nonreactive Nonreactive (BEAKER) (test code = 645) HEPATITIS C ANTIBODY (BEAKER) Nonreactive Nonreactive (test code = 367) HEPATITIS B SURFACE ANTIGEN (2) Nonreactive Nonreactive (BEAKER) (test code = 2585) CREATININE, RANDOM [id number] 03:18:00 Test Item Value Reference Range Interpretation Comments CREATININE URINE (BEAKER) (test 118.7 mg/dL code = 375) Reference Range: No NormalsSODIUM, RANDOM [id number] 03:18:00 Test Item Value Reference Range Interpretation Comments SODIUM URINE (BEAKER) (test code = 60 meq/L 243) Reference Range: No NormalsUREA NITROGEN, RANDOM [id number] 03:18:00 Test Item Value Reference Range Interpretation Comments UREA NITROGEN URINE (BEAKER) (test 303 mg/dL code = 538) Reference Range: No [id number] 03:07:00 Test Item Value Reference Range Interpretation Comments AMMONIA (BEAKER) (test code = 348) 48 mol/L 18-72 [id number] 02:57:00 Test Item Value Reference Range Interpretation [...] within 95-100% range. URINALYSIS W/ REFLEX URINE [id number] 02:53:00 Test Item Value Reference Range Interpretation [...] = 514) SOURCE(BEAKER) (test code = 2795) [id number] 02:49:00 Test Item Value Reference Range Interpretation Comments PARTIAL THROMBOPLASTIN TIME 39.4 seconds 22.5-36.0 H (BEAKER) (test code = 760) PROTHROMBIN [id number] 02:48:00 Test Item Value Reference Range Interpretation Comments PROTIME (BEAKER) (test code = 22.0 seconds 11.7-14.7 H 759) INR (BEAKER) (test code = 370) 1.9 <=5.9 RECOMMENDED COUMADIN/WARFARIN INR THERAPY RANGESSTANDARD DOSE: 2.0 - 3.0 Includes: PROPHYLAXIS forvenous thrombosis, systemic embolization; TREATMENT for venous thrombosis and/or pulmonary embolus.HIGH RISK: Target INR is 2.5-3.5 for patients with mechanical heart valves.[id number] 02:48:00 Test Item Value Reference Range Interpretation Comments FIBRINOGEN LEVEL (BEAKER) (test 421 mg/dl 225-434 code = 658) BLOOD GAS, [id number] 02:43:00 Test Item Value Reference Range Interpretation [...] 21.0 % CBC W/PLT COUNT & AUTO [id number] 02:43:00 Test Item Value Reference Range Interpretation [...] code = 417) 0.00LACTIC ACID, VENOUS, WHOLE [id number] 02:35:00 Test Item Value Reference Range Interpretation Comments LACTATE BLOOD VENOUS (2) (BEAKER) 0.8 mmol/L 0.5-2.2 (test code = 2872) Effective 10/23/2015: Units/Reference Range ChangeNew: 0.5-2.2 mmol/L Previous: 5-20 mg/dLSpecimen slightly icteric
[2020-10-26] MEDS ORDERED: ONDANSETRON 4 MG/2 ML VIAL ONE (12:52)
[2020-10-26] MEDS ORDERED: HYDROMORPHONE HCL 1 MG/ML INJ ONE (12:52)
[2020-10-26 12:55] LABS: Absolute Lymphocytes (CBC) 0.9 K/uL (0.7-4.9); Basophils % 0.6 % (0-1.3); Hematocrit 27.5 % (36.0-45.0); Lymphocytes % 26.2 % (15.3-44.8); MPV 11.5 fL (7.6-11.3); RBC Red Blood Cell Count 2.93 M/uL (3.86-4.86)
[2020-10-26 13:07] LABS: Albumin 3.7 g/dL (3.4-5.0); Bilirubin Direct 0.2 mg/dL (0-0.2); Bilirubin Total 0.5 mg/dL (0.2-1.0); Potassium 5.4 mmol/L (3.5-5.1); Protein, Total 7.3 g/dL (6.4-8.2)
--- NOTE | 2020-10-26 13:20 | RAD REPORT ---
EXAM DESCRIPTION: CT - Abdomen Pelvis Wo Contrast - 10/26/2020 1:07 pm CLINICAL HISTORY: Abdominal pain. ABD PAIN COMPARISON: Abdomen Pelvis Wo Contrast dated 09/30/2020; Rest Stress Cardiac Imaging dated 1; Abdomen Exam Limited dated 10/01/2020; Abdomen Pelvis Wo Contrast dated 03/05/2020 TECHNIQUE: CT imaging of the abdomen and pelvis was performed without contrast. Solid organ, bowel a nd vascular assessment is limited due to lack of IV and oral contrast. All CT scans are performed using dose optimization technique as appropriate and may include automated exposure control or mA/KV adjustment according to patient size. FINDINGS: Vague nodules are seen in the right lung base of unclear etiology significance. Pulmonary infection is a possibility.Trace right pleural effusion. The liver, spleen, pancreas, adrenal glands and kidneys are within normal limits for a limited non-co ntrast examination.The gallbladder is distended and contains a gallstone. No bowel obstruction, free air, intra-abdominal free fluid or abscess. Moderate pelvic free fluid is seen. The appendix is normal. The osseous structures are within normal limits.Urinary bladder appears thickened. IMPRESSION: Urinary bladder thickening is seen, advise correlation for possible cystitis. Distended gallbladder with cholelithiasis. Vague nonspecific areas of ground-glass nodularity in the right base may be related to infection. Moderate pelvic free fluid. A limited non-contrast examination was performed as detailed.
[2020-10-26] MEDS ORDERED: PROMETHAZINE INJ 25 MG/ML AMP ONE (14:31)
--- NOTE | 2020-10-26 16:01 | ER ---
Nurse's Notes [facility] Name: Cathi Zaldivar Age: 40 yrs Sex: Female : 1980 Arrival Date: 10/26/2020 Time: 11:36 Bed 6 Private MD: Diagnosis: Unspecified abdominal pain;Nausea and vomiting Presentation: 10/26 11:37 Chief complaint: Patient states: abd pain, N/V that began yesterday evening. HX of ss gastroparesis. PT reports she has an appointment coming up to see a specialist to implant a gastric pacemaker. Coronavirus screen: Client denies travel out of the [place] in the last 14 days. Ebola Screen: Patient denies exposure to infectious person. Patient denies travel to an Ebola-affected area in the 21 days before illness onset. Initial Sepsis Screen: Does the patient have a suspected source of infection? No. Patient's initial sepsis screen is negative. Initial Sepsis Screen: Does the patient meet any 2 criteria? No. Patient's initial sepsis screen is negative. Risk Assessment: Do you want to hurt yourself or someone else? Patient reports no desire to harm self or others. Onset of symptoms was October 25, 2020. 11:37 Method Of Arrival: EMS: [facility] ss 11:37 Acuity: JESSICA 3 ss Historical: - Allergies: 11:40 ambien; ss 11:40 Codeine; ss 11:40 Demerol; ss 11:40 GUAIFENESIN; ss 11:40 Lisinopril; ss 11:40 Nitrofurantoin Macrocrystal; ss 11:40 PENICILLINS; ss 11:40 Prolixin; ss 11:40 zolpidem tartrate; ss 11:40 Morphine; ss - PMHx: 11:40 "mental problems"; CHF; chronic kidney disease; Diabetes - NIDDM; liver failure; ss Hypertension; PERIPHERAL NEUROPATHY; Gastroparesis; ENCEPHALOPATHY; Dialysis; m-w-f; Seizures; - Immunization history:: Adult Immunizations up to date. - Social history:: Smoking status: Patient/guardian denies using tobacco, Stopped _ months ago 1. Screenin:45 Abuse screen: Denies threats or abuse. Nutritional screening: No deficits noted. em Tuberculosis screening: No symptoms or risk factors identified. Fall Risk None identified. Assessment: 12:40 General: Appears in no apparent distress. uncomfortable, Behavior is calm, cooperative, em appropriate for age. Pain: Complains of pain in abdomen Pain currently is 8 out of 10 on a pain scale. Neuro: Level of Consciousness is awake, alert, obeys commands, Oriented to person, place, time, situation. Cardiovascular: Capillary refill < 3 seconds Patient's skin is warm and dry. Respiratory: Airway is patent Respiratory effort is even, unlabored, Respiratory pattern is regular, symmetrical. GI: Abdomen is flat, Bowel sounds present X 4 quads. Abd is soft X 4 quads Abdomen is tender to palpation X 4 quads. Reports nausea, vomiting. Derm: Skin is intact, is healthy with good turgor, Skin is pink, warm \\T\\ dry. Musculoskeletal: Capillary refill < 3 seconds, Range of motion: intact in all extremities. 13:58 Reassessment: reports pain is better, but pt is nauseous and vomiting, provider em notified. Vital Signs: 11:37 BP 187 / 82; Pulse 73; Resp 18; Temp 99.1(O); Pulse Ox 100% on R/A; Weight 76.4 kg (M); ss Height 5 ft. 2 in. (157.48 cm); Pain 8/10; 13:14 BP 129 / 74; Pulse 81; Resp 18; Pulse Ox 99% on R/A; em 14:29 BP 159 / 73; Pulse 78; Resp 14; Pulse Ox 91% on R/A; em 15:00 BP 123 / 65; Pulse 65; Resp 14; Pulse Ox 100% ; sv 11:37 Body Mass Index 30.81 (76.40 kg, 157.48 cm) ED Course: 11:36 Patient arrived in ED. cl3 11:39 Triage completed. ss 11:40 Arm band placed on right wrist. ss 11:41 Anand Gallo NP is PHCP. pm1 11:41 Luis Sandra MD is Attending Physician. pm1 12:13 Regulo Rene, TABATHA is Primary Nurse. em 12:38 Inserted saline lock: 22 gauge in left forearm, using aseptic technique. ,using aseptic ss technique. ULTRASOUND GUIDED Blood collected. 12:40 Patient has correct armband on for positive identification. Bed in low position. Adult em w/ patient. Pulse ox on. NIBP on. 13:07 CT Abd/Pelvis - Without Contrast In Process Unspecified. EDMS 14:30 Lipase Sent. sv 14:31 Hepatic Function Sent. sv 14:31 CBC with Diff Sent. sv 14:31 Basic Metabolic Panel Sent. sv 16:30 No provider procedures requiring assistance completed. IV discontinued, intact, ss bleeding controlled, No redness/swelling at site. Pressure dressing applied. Administered Medications: 12:42 Drug: Zofran (Ondansetron) 4 mg Route: IVP; Site: left forearm; ss 13:57 Follow up: Response: No adverse reaction em 12:44 Drug: Dilaudid (HYDROmorphone) 1 mg Route: IVP; Site: left forearm; em 13:57 Follow up: Response: No adverse reaction; Marked relief of symptoms; Pain is decreased; em RASS: Drowsy (-1) 14:11 Drug: Phenergan (promethazine) 12.5 mg Route: IVP; Site: left forearm; em 14:45 Follow up: Response: No adverse reaction; Marked relief of symptoms; Nausea is decreasedem Outcome: 16:01 Discharge ordered by . pm1 16:30 Discharged to home ambulatory. 16:30 Condition: good 16:30 Discharge instructions given to patient, Instructed on discharge instructions, follow up and referral plans. medication usage, Demonstrated understanding of instructions, follow-up care, medications, Prescriptions given X 3. 16:45 Patient left the ED. Signatures: Dispatcher [employer] EDMS Janie Ricketts RN RN Regulo Rene RN RN em Smirch, Shelby, RN RN Anand Gallo, CHAPARRITA [employer] pm1 Vernon Longoria cl3
--- NOTE | 2020-10-26 16:01 | EDPHYS ---
Physician Documentation [facility] Name: Cathi Zaldivar Age: 40 yrs Sex: Female : 1980 Arrival Date: 10/26/2020 Time: 11:36 Bed 6 Private MD: DWIGHT Physician Luis Sandra HPI: 10/26 13:09 This 40 yrs old Female presents to ER via EMS with complaints of Abdominal pm1 Pain, Nausea/Vomiting. 13:09 The patient presents with abdominal pain in the epigastric area. Onset: The pm1 symptoms/episode began/occurred yesterday. The symptoms do not radiate. Associated signs and symptoms: Pertinent positives: nausea and vomiting, Pertinent negatives: chest pain, constipation, diarrhea, shortness of breath. The symptoms are described as burning, sharp. Modifying factors: The symptoms are alleviated by nothing, the symptoms are aggravated by food. Severity of pain: in the emergency department the pain is actually worse. The patient has experienced similar episodes in the past, multiple times, and the symptoms today are exactly the same, to previous gastroparesis. The patient has been recently seen by a physician: with similar presenting complaints, Has gastric pacemaker scheduled to be placed in December. Historical: - Allergies: 11:40 ambien; ss 11:40 Codeine; ss 11:40 Demerol; ss 11:40 GUAIFENESIN; ss 11:40 Lisinopril; ss 11:40 Nitrofurantoin Macrocrystal; ss 11:40 PENICILLINS; ss 11:40 Prolixin; ss 11:40 zolpidem tartrate; ss 11:40 Morphine; ss - PMHx: 11:40 "mental problems"; CHF; chronic kidney disease; Diabetes - NIDDM; liver failure; ss Hypertension; PERIPHERAL NEUROPATHY; Gastroparesis; ENCEPHALOPATHY; Dialysis; m-w-f; Seizures; - Immunization history:: Adult Immunizations up to date. - Social history:: Smoking status: Patient/guardian denies using tobacco, Stopped _ months ago 1. ROS: 13:09 Constitutional: Negative for fever, chills, and weight loss, Eyes: Negative for injury, pm1 pain, redness, and discharge, Cardiovascular: Negative for chest pain, palpitations, and edema, Respiratory: Negative for shortness of breath, cough, wheezing, and pleuritic chest pain, Back: Negative for injury and pain. 13:09 ENT: Negative for injury, pain, and discharge, : Negative for injury, bleeding, discharge, and swelling, MS/Extremity: Negative for injury and deformity, Skin: Negative for injury, rash, and discoloration, Neuro: Negative for headache, weakness, numbness, tingling, and seizure. 13:09 Abdomen/GI: Positive for abdominal pain, nausea and vomiting, of the epigastric area, Negative for diarrhea, constipation. Exam: 13:09 Constitutional: This is a well developed, well nourished patient who is awake, alert, pm1 and in no acute distress. Head/Face: Normocephalic, atraumatic. Eyes: Pupils equal round and reactive to light, extra-ocular motions intact. Lids and lashes normal. Conjunctiva and sclera are non-icteric and not injected. Cornea within normal limits. Periorbital areas with no swelling, redness, or edema. ENT: Nares patent. No nasal discharge, no septal abnormalities noted. Tympanic membranes are normal and external auditory canals are clear. Oropharynx with no redness, swelling, or masses, exudates, or evidence of obstruction, uvula midline. Mucous membranes moist. 13:09 Back: No spinal tenderness. No costovertebral tenderness. Full range of motion. Skin: Warm, dry with normal turgor. Normal color with no rashes, no lesions, and no evidence of cellulitis. MS/ Extremity: Pulses equal, no cyanosis. Neurovascular intact. Full, normal range of motion. 13:09 Cardiovascular: Rate: normal, Rhythm: regular, Pulses: no pulse deficits are appreciated, Heart sounds: normal, normal S1and S2, Edema: is not appreciated. 13:09 Respiratory: Exam negative for acute changes, respiratory distress, shortness of breath, Breath sounds: are clear throughout. 13:09 Abdomen/GI: Inspection: abdomen appears normal, Palpation: soft, in all quadrants, mild abdominal tenderness, in the epigastric area. 13:09 Neuro: Exam negative for acute changes, Orientation: is normal, Mentation: is normal, Motor: is normal, moves all fours, Sensation: is normal, no obvious gross deficits. Vital Signs: 11:37 BP 187 / 82; Pulse 73; Resp 18; Temp 99.1(O); Pulse Ox 100% on R/A; Weight 76.4 kg (M); ss Height 5 ft. 2 in. (157.48 cm); Pain 8/10; 13:14 BP 129 / 74; Pulse 81; Resp 18; Pulse Ox 99% on R/A; em 14:29 BP 159 / 73; Pulse 78; Resp 14; Pulse Ox 91% on R/A; em 15:00 BP 123 / 65; Pulse 65; Resp 14; Pulse Ox 100% ; sv 11:37 Body Mass Index 30.81 (76.40 kg, 157.48 cm) ss MDM: 11:49 Patient medically screened. juan 16:00 Data reviewed: vital signs. Data interpreted: Pulse oximetry: on room air is 100 %. pm1 Interpretation: normal. Counseling: I had a detailed discussion with the patient and/or guardian regarding: the historical points, exam findings, and any diagnostic results supporting the discharge/admit diagnosis, lab results, radiology results, the need for outpatient follow up, to return to the emergency department if symptoms worsen or persist or if there are any questions or concerns that arise at home. 10/26 11:53 Order name: Basic Metabolic Panel pm1 10/26 11:53 Order name: CBC with Diff pm1 10/26 11:53 Order name: Hepatic Function pm10/26 11:53 Order name: Lipase pm1 10/26 11:54 Order name: Basic Metabolic Panel; Complete Time: 13:21 EDMS 10/26 11:54 Order name: Liver (Hepatic) Function; Complete Time: 13:21 EDIN 10/26 11:53 Order name: IV Saline Lock; Complete Time: 12:38 pm1 10/26 11:53 Order name: Labs collected and sent; Complete Time: 12:38 pm1 10/26 11:54 Order name: Lipase; Complete Time: 13:21 EDMS 10/26 11:54 Order name: CBC with Automated Diff; Complete Time: 13:06 EDMS 10/26 12:03 Order name: CT Abd/Pelvis - Without Contrast; Complete Time: 13:21 pm1 Administered Medications: 12:42 Drug: Zofran (Ondansetron) 4 mg Route: IVP; Site: left forearm; ss 13:57 Follow up: Response: No adverse reaction em 12:44 Drug: Dilaudid (HYDROmorphone) 1 mg Route: IVP; Site: left forearm; em 13:57 Follow up: Response: No adverse reaction; Marked relief of symptoms; Pain is decreased; em RASS: Drowsy (-1) 14:11 Drug: Phenergan (promethazine) 12.5 mg Route: IVP; Site: left forearm; em 14:45 Follow up: Response: No adverse reaction; Marked relief of symptoms; Nausea is decreasedem Disposition: 10/26/20 16:01 Discharged to Home. Impression: Unspecified abdominal pain, Nausea and vomiting. - Condition is Stable. - Discharge Instructions: Abdominal Pain, Adult, Gastroparesis. - Prescriptions for Zofran ODT 4 mg Oral tablet,disintegrating - place 1 tablet by TRANSLINGUAL route every 8 hours As needed; 20 tablet. Bentyl 20 mg Oral Tablet - take 1 tablet by ORAL route every 6 hours As needed; 20 tablet. Phenergan 25 mg Rectal Suppository - insert 1 suppository by RECTAL route every 6 hours As needed; 12 suppository. - Medication Reconciliation Form, Thank You Letter, Antibiotic Education, Prescription Opioid Use form. - Follow up: Emergency Department; When: As needed; Reason: Worsening of condition. Follow up: Private Physician; When: 2 - 3 days; Reason: Recheck today's complaints, Continuance of care, Re-evaluation by your physician. - Problem is new. - Symptoms have improved. Addendum: 10/28/2020 09:43 Co-signature as Attending Physician, Luis Sandra MD I agree with the assessment and c holman plan of care. Signatures: Dispatcher [employer] Luis Urban MD MD cha Munoz, Edgar, RN RN Shannan Lynch RN RN ss Anand Gallo, CHAPARRITA DETAIL ASSEMBLER pm1 Corrections: (The following items were deleted from the chart) 10/26 16:45 16:01 10/26/2020 16:01 Discharged to Home. Impression: Unspecified abdominal pain; ss Nausea and vomiting. Condition is Stable. Forms are Medication Reconciliation Form, Thank You Letter, Antibiotic Education, Prescription Opioid Use. Follow up: Emergency Department; When: As needed; Reason: Worsening of condition. Follow up: Private Physician; When: 2 - 3 days; Reason: Recheck today's complaints, Continuance of care, Re-evaluation by your physician. Problem is new. Symptoms have improved. pm1
[2020-10-26 17:15] VITALS: TEMP 99.1
[2020-10-26 17:19] VITALS: BP 123/65; O2SAT 100
== END 2020-10-26 16:45 | disposition home or self-care (01) ==
LOC: ER 11:32
DX: R10.13 Epigastric pain (principal); R11.2 Nausea with vomiting, unspecified; Z87.891 Personal history of nicotine dependence; I13.2 Hypertensive heart and chronic kidney disease with heart failure and with stage 5 chronic kidney disease, or end stage renal disease; N18.6 End stage renal disease; I50.9 Heart failure, unspecified; Z99.2 Dependence on renal dialysis; E11.22 Type 2 diabetes mellitus with diabetic chronic kidney disease; E11.42 Type 2 diabetes mellitus with diabetic polyneuropathy; E11.43 Type 2 diabetes mellitus with diabetic autonomic (poly)neuropathy; K31.84 Gastroparesis
CPT/HCPCS: 85025; 80048; 36415; 80076; 83690; 74176; J2550; J1170; J2405; 96374; 96375; 99284

== ENCOUNTER 2020-10-27 19:14 | Observation (INO) | payer OTHER ==
--- OUTSIDE RECORDS SUMMARY | 2020-10-27 19:19 | XMS REPORT | Continuity of Care Document ---
:1980 Author Organization [facility] t Address [address] [place] [address] Care Team Providers Name Role Phone Sharpless [...] kes - athy athy 00:00: Medical 00 [place] Ulcer of Ulcer of Disease [facility] left foot left foot 00:00: [facility] [place] Peripheral Peripheral Disease Active [facility] neuropathy neuropathy 01-03 Pati kes - 00:00: Medical 00 [place] Hyperglyce Hyperglyce Disease Active [facility] 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 01-03 Pati kes - type 2 type 2 00:00: Medical diabetes diabetes 00 [place] mellitus mellitus Gastropare Gastropare Disease Active [facility] sis due to sis due to 01-03 Pati kes - DM DM 00:00: Medical 00 [place] Cyclic Cyclic Disease Active [facility] 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 00:00: Medica l 00 [place] Anxiety Anxiety Disease Active [facility] Medical 00 [place] Bipolar Bipolar Disease Active [facility] disorder disorder 01-03 [facility] - 00:[facility]: Medical 00 [place] Hypertensi Hypertensi Disease Active [facility] ve ve 01-03 [facility] - emergency emergency 00:00: [facility] [place] Allergies, Adverse Reactions, Alerts Allergy Allergy Status Severity Reaction(s) Onset Inactive Treating Comm ents Source Name Type Date Date Clinician Zolpidem Drug Active Other (See confusion [facility] Allergy Comments) 01-03 [facility] - 00:00: Medical 00 [place] Lisinopr Drug Active Other (See Unable to [facility] il Allergy Comments) 01-03 remember Luke s - 00:00: Medical 00 [place] Nitrofur Drug Active Anaphylaxis Liver [facility] antoin Allergy 01-03 failure [facility] - Monohyd/ 00:00: Medical M-Cryst 00 [place] Penicill Drug Active Shortness Of [facility] ins Allergy Breath 01-03 [facility] - 00:00: Medical 00 [place] Guaifene Drug Active Other (See numbness [facility] sin Allergy Comments) 01-03 [facility] - 00:00: Medical 00 [place] Social History Social Habit Start Date Stop Date Quantity Comments Source Sex Assigned At [facility] Lom[facility] - [facility] Cigarettes smoked 2017-12-17 2017-12-17 MINERVA Paul - current (pack per 00:00:00 00:00:00 Medical Center day) - Reported Cigarette 2017-12-17 2017-12-17 MINERVA Paul - pack-years 00:00:00 00:00:00 [facility] Alcohol intake 2017-12-17 2017-12-17 Current MINERVA Desouzak es - 00:00:00 00:00:00 non-drinker of Medical Ce nter alcohol (finding) Tobacco Comment 2017-01-03 2017-01-03 patient stated MINERVA nam Lujazmin - 00:00:00 00:00:00 she stopped [address] month ago. History of tobacco 2016-12-04 Smoker MINERVA Paul - use 00:00:00 [facility] Smoking Status Start Date Stop Date Source Former smoker 2017-12-17 00:00:00 2017-12-17 00:00:[address] [facility] L rust - [facility] Medications Ordered Filled Start Stop Current Ordering [...] Medica l 59 Center hydrALAZINE Yes 100mg [id number] Take [address] (APRESOLINE 7-20 [id number] mg by L ukes - ) 100 MG 15:20: 3D mouth 3 Medica l tablet 59 (three) Center times daily. magnesium 2017-0 Yes 400mg QD Take [address] oxide 7-20 mg by [facility] - (MAG-OX) 15:20: mouth Medical 400 mg 59 daily. Center tablet metoclopram 2017-0 Yes 10mg Q.[id number] Take [address] gadiel HCl 7-20 [id number] by mouth 3 [facility] - (REGLAN) 10 [...] Facility Department ID 2020-09-24 2020-09-24 Refill Carlos [facility] [id number] 00:00:00 00:00:00 Jose Luis Sims [id number] [place] [id number] Gale [id number] [address] 2020-09-09 2020-09-09 Patient Daniel IDIMELDA [id number] 00:00:00 00:00:00 Outreach [facility] [id number] [facility] [id number] PAVILLION [id number] 2020-07-23 2020-07-23 Office Black [facility] [id number] 13:31:20 14:37:36 Visit De[facility] [id number] [facility] [id number] PAVILLION [id number] 2020-01-25 2020-01-31 Inpatient [address] [facility] GPY [id number] 21:31:00 18:15:00 Rei Waldron [facility] 2016-07-23 2016-07-30 Outpatient Yaquelin [facility] [id number] 20:04:00 10:20:00 Luna 10 2016-06-10 2016-06-15 Outpatient Franck, [facility] [id number] 10:02:00 12:23:00 Joe Yan 09 2014-06-25 2014-06-26 Outpatient Courtney [facility] [id number] 23:25:00 09:14:00 Atul Sirisha Cem 2013-04-14 2013-04-15 Outpatient [facility] [id number] Memoria 21:04:00 01:45:[address] [facility] 2013-04-14 2013-04-15 Outpatient [facility] [id number] Memoria 21:04:00 01:45:00 Rudolph Vin [address] [facility] 2013-04-14 2013-04-15 Outpatient [facility] [id number] Memoria 21:04:00 01:45:[address] [facility] 2013-04-14 2013-04-15 Outpatient [facility] [id number] Memoria 21:04:00 01:45:[address] [facility] 2013-04-14 2013-04-15 Outpatient [facility] [id number] Memoria 21:04:00 01:45:[address] [facility] Results Test Description Test [...] the main Lab for analysi s. Urine [id number] 11:32:13 Test Item Value Reference Range Interpretation [...] Escherichia coli C Urine Added by GL_SJM_UA_CUL_INDPOC [id number] 07:52:10 Test Item Value Reference Range Interpretation Comments Glucose POC (test 160 mg/dL 70-115 H If you con student records coordinator your code = Glucose POC) patient critically ill, the Merlin-Accu Check Infrom II meter should not be used for Glucose determination. Draw a venous Glucose and send to the main Lab for analysis. POC [id number] 19:32:05 Test Item Value Reference Range Interpretation Comments Glucose POC (test 184 mg/dL 70-115 H If you con student records coordinator your code = Glucose POC) patient critically ill, the Merlin-Accu Check Infrom II meter should not be used for Glucose determination. Draw a venous Glucose and send to the main Lab for analysis. POC [id number] 17:16:35 Test Item Value Reference Range Interpretation Comments Glucose POC (test 281 mg/dL 70-115 H Notify RN or MDIf you code = Glucose POC) consider your patient critically ill, the Merlin-Accu Chec k Infrom II meter should not be used for Glucos e determination. Draw a venous Glucose and send to the main Lab for analysis. POC [id number] 12:00:38 Test Item Value Reference Range Interpretation Comments Glucose POC (test 138 mg/dL 70-115 H Notify RN or MDIf you code = Glucose POC) consider your patient critically ill, the Merlin-Accu Chec k Infrom II meter should not be used for Glucos e determination. Draw a venous Glucose and send to the main Lab for analysis. POC [id number] 07:41:32 Test Item Value Reference Range Interpretation Comments Glucose POC (test 206 mg/dL 70-115 H Notify RN or MDIf you code = Glucose POC) consider your patient critically ill, the Merlin-Accu Chec k Infrom II meter should not be used for Glucos e determination. Draw a venous Glucose and send to the main Lab for analysis. Urinalysis [id number] 21:07:21 Test Item Value Reference Range Interpretation Comments UA WBC (test code = UA WBC) TNTC 0-5 A UA RBC (test code = UA RBC) 6-10 0-5 A UA Bacteria (test code = UA Bacteria) Profuse A UA Squam Epithelial (test code = UA 6-10 A Squam Epithelial) Urinalysis with Culture, if [id number] 20:35:14 Test Item Value Reference Range Interpretation [...] Micro Indicated Not Indicated A Ind?) POC [id number] 19:06:34 Test Item Value Reference Range Interpretation Comments Glucose POC (test 207 mg/dL 70-115 H If you con student records coordinator your code = Glucose POC) patient critically ill, the Merlin-Accu Check Infrom II meter should not be used for Glucose determination. Draw a venous Glucose and send to the main Lab for analysis. POC [id number] 17:12:03 Test Item Value Reference Range Interpretation Comments Glucose POC (test 173 mg/dL 70-115 H Notify RN or MDIf you code = Glucose POC) consider your patient critically ill, the Merlin-Accu Chec k Infrom II meter should not be used for Glucos e determination. Draw a venous Glucose and send to the main Lab for analysis. POC [id number] 11:58:01 Test Item Value Reference Range Interpretation Comments Glucose POC (test 289 mg/dL 70-115 H Notify RN or MDIf you code = Glucose POC) consider your patient critically ill, the Merlin-Accu Chec k Infrom II meter should not be used for Glucos e determination. Draw a venous Glucose and send to the main Lab for analysis. POC [id number] 08:19:37 Test Item Value Reference Range Interpretation Comments Glucose POC (test 201 mg/dL 70-115 H Notify RN or MDIf you code = Glucose POC) consider your patient critically ill, the Merlin-Accu Chec k Infrom II meter should not be used for Glucos e determination. Draw a venous Glucose and send to the main Lab for analysis. POC [id number] 20:37:35 Test Item Value Reference Range Interpretation Comments Glucose POC (test 272 mg/dL 70-115 H If you con student records coordinator your code = Glucose POC) patient critically ill, the Merlin-Accu Check Infrom II meter should not be used for Glucose determination. Draw a venous Glucose and send to the main Lab for analysis. POC [id number] 17:23:05 Test Item Value Reference Range Interpretation Comments Glucose POC (test 229 mg/dL 70-115 H If you con student records coordinator your code = Glucose POC) patient critically ill, the Merlin-Accu Check Infrom II meter should not be used for Glucose determination. Draw a venous Glucose and send to the main Lab for analysis. POC [id number] 12:01:01 Test Item Value Reference Range Interpretation Comments Glucose POC (test 155 mg/dL 70-115 H If you con student records coordinator your code = Glucose POC) patient critically ill, the Merlin-Accu Check Infrom II meter should not be used for Glucose determination. Draw a venous Glucose and send to the main Lab for analysis. POC [id number] 08:07:32 Test Item Value Reference Range Interpretation Comments Glucose POC (test 248 mg/dL 70-115 H If you con student records coordinator your code = Glucose POC) patient critically ill, the Merlin-Accu Check Infrom II meter should not be used for Glucose determination. Draw a venous Glucose and send to the main Lab for analysis. IG [id number] 06:50:39 Test Item Value Reference Range Interpretation Comments IG (test code = IG) 0.7 % 0.0-5.0 IG Abs (test code = IG Abs) 0 x10 N Complete Blood Count with [id number] 06:50:38 Test Item Value Reference Range Interpretation [...] code = IPF) 0 % N Automated [id number] 06:50:38 Test Item Value Reference Range Interpretation Comments Neutro Auto (test code = Neutro 50.3 % 36.0-70.0 Auto) Lymph Auto (test code = Lymph Auto) 38.6 % 12.0-44.0 Vance Auto (test code = Vance Auto) 7.3 % 0.0-11.0 Eos, Auto (test code = Eos, Auto) 2.4 % 0.0-7.0 Basophil Auto (test code = Basophil 0.7 % 0.0-2.0 Auto) Neutro Absolute (test code = Neutro 3.0 x10 1.6-7.4 Absolute) Lymph Absolute (test code = Lymph 2.28 x10 .50-4.60 Absolute) Vance Absolute (test code = Vance .43 x10 .00-1.20 Absolute) Eos Absolute (test code = Eos 0.14 x10 0.00-0.74 Absolute) Baso Absolute (test code = Baso 0.04 x10 0.00-0.21 Absolute) Basic Metabolic [id number] 05:38:20 Test Item Value Reference Range Interpretation [...] = Lipemia) 0 mg/dL 8-11 Basic Metabolic [id number] 05:38:20 Test Item Value Reference Range Interpretation [...] = 0 mg/dL 8-11 Lipemia) Basic Metabolic [id number] 05:38:20 Test Item Value Reference Range Interpretation [...] code = 0 mg/dL 8-11 Lipemia) POC [id number] 20:28:33 Test Item Value Reference Range Interpretation Comments Glucose POC (test 169 mg/dL 70-115 H If you con student records coordinator your code = Glucose POC) patient critically ill, the Merlin-Accu Check Infrom II meter should not be used for Glucose determination. Draw a venous Glucose and send to the main Lab for analysis. POC [id number] 16:39:30 Test Item Value Reference Range Interpretation Comments Glucose POC (test 103 mg/dL 70-115 If you con student records coordinator your code = Glucose POC) patient critically ill, the Merlin-Accu Check Infrom II meter should not be used for Glucose determination. Draw a venous Glucose and send to the main Lab for analysis. RPR [id number] 12:08:56 Test Item Value Reference Range Interpretation Comments RPR Qual (test code = RPR Qual) Non-Reactive Non-Reactive Reactive Control (test code = Reactive Reactive Control) Weak Reactive Control (test Weak Reactive code = Weak Reactive Control) Non-Reactive Control (test code Non-Reactive = Non-Reactive Control) Lot # (test code = Lot #) [id number] N Expiration Dt (test code = 03-20-2021 N Expiration Dt) POC [id number] 11:52:31 Test Item Value Reference Range Interpretation Comments Glucose POC (test 250 mg/dL 70-115 H If you con student records coordinator your code = Glucose POC) patient critically ill, the Merlin-Accu Check Infrom II meter should not be used for Glucose determination. Draw a venous Glucose and send to the main Lab for analysis. POC [id number] 07:55:29 Test Item Value Reference Range Interpretation Comments Glucose POC (test 205 mg/dL 70-115 H If you con student records coordinator your code = Glucose POC) patient critically ill, the Merlin-Accu Check Infrom II meter should not be used for Glucose determination. Draw a venous Glucose and send to the main Lab for analysis. Lipid [id number] 05:46:04 Test Item Value Reference Range Interpretation [...] LDL/HDL Ratio=L DL Calc/HDL Chol Thyroid Stimulating [id number] 05:46:04 Test Item Value Reference Range Interpretation Comments TSH (test code = TSH) 3.274 mcIU/mL 0.550-4.780 Hemoglobin [id number] 05:41:08 Test Item Value Reference Range Interpretation Comments Hemoglobin A1c (test code 7.6 % 4.0-5.8 H Di abetic >=6.5 = Hemoglobin A1c) %Prediabet es 5.7-6.4 %Normal <5.7 % Hepatitis B Surface [id number] 21:19:36 Test Item Value Reference Range Interpretation Comments Hep Bs Ag (test code = Hep Bs Non-Reactive Non-Reactive Ag) Novel Coronavirus SARS-CoV-2, [id number] 11:16:16 Test Item Value Reference Range Interpretation [...] Emergency Use Authorization." Novel Coronavirus (COVID-19), EMANUEL [id number] 11:11:24TNPTest not sent and performed at [facility].Rapid was perfomed in Microbiology.Wrong covid test was ord ered.Urine [id number] 00:17:49 Test Item Value Reference Range Interpretation [...] days. U Propoxyphene (test Negative Negative The [facility] is code = U Propoxyphene) presu mptive positive if the analyte concentration i s equal to or greater t scott 300 ng/ml.If confir mation of positive res ult is desired, please order Propoxyphene Confirmation wi thin 7 days. Alcohol [id number] 00:17:29 Test Item Value Reference Range Interpretation Comments Ethanol Level 9.0 mg/dL N The pharmacolo gical (test code = response to blo od alcohol Ethanol Level) levels may va ry from individual to i ndividual. The fatal omkar ntration has been report ed to be >400 mg/dl. Comprehensive Metabolic [id number] 00:17:28 Test Item Value Reference Range Interpretation [...] = Lipemia) 0 g/dL 1-2 Comprehensive Metabolic [id number] 00:17:28 Test Item Value Reference Range Interpretation [...] = 0 g/dL 1-2 Lipemia) Comprehensive Metabolic [id number] 00:17:28 Test Item Value Reference Range Interpretation [...] g/dL 1-2 Lipemia) Complete Blood Count with [id number] 23:26:28 Test Item Value Reference Range Interpretation [...] code = IPF) 0 % N Automated [id number] 23:26:28 Test Item Value Reference Range Interpretation Comments Neutro Auto (test code = Neutro 67.1 % 36.0-70.0 Auto) Lymph Auto (test code = Lymph Auto) 23.3 % 12.0-44.0 Vance Auto (test code = Vance Auto) 5.8 % 0.0-11.0 Eos, Auto (test code = Eos, Auto) 2.3 % 0.0-7.0 Basophil Auto (test code = Basophil 0.8 % 0.0-2.0 Auto) Neutro Absolute (test code = Neutro 6.0 x10 1.6-7.4 Absolute) Lymph Absolute (test code = Lymph 2.10 x10 .50-4.60 Absolute) Vance Absolute (test code = Vance .52 x10 .00-1.20 Absolute) Eos Absolute (test code = Eos 0.21 x10 0.00-0.74 Absolute) Baso Absolute (test code = Baso 0.07 x10 0.00-0.21 Absolute) IG [id number] 23:26:28 Test Item Value Reference Range Interpretation Comments IG (test code = IG) 0.7 % 0.0-5.0 IG Abs (test code = IG Abs) 0 x10 N HERPES VIRUS ANTIBODY, [id number] 21:46:00 Test Item Value Reference Range Interpretation Comments HERPES VIRUS IGM (AKER) Negative SE E ATTACHMENT (test code = 1808) BLOOD [id number] 06:00:00 Test Item Value Reference Range Interpretation Comments CULTURE (BEAKER) (test No growth in 5 days code = 1095) BLOOD [id number] 06:00:00 Test Item Value Reference Range Interpretation Comments CULTURE (BEAKER) (test No growth in 5 days code = 1095) POCT-GLUCOSE [id number] 12:11:00 Test Item Value Reference Range Interpretation Comments POC-GLUCOSE METER 154 mg/dL 70-110 H TESTED AT [place] [address] ([facility]) (test code = [facility] Eduin [facility] 1538) [address] POCT-GLUCOSE [id number] 07:53:00 Test Item Value Reference Range Interpretation Comments POC-GLUCOSE METER 87 mg/dL 70-110 TESTED AT [place] [address] ([facility]) (test code = [facility] [address] 1538) POCT-GLUCOSE [id number] 06:49:00 Test Item Value Reference Range Interpretation Comments POC-GLUCOSE METER 79 mg/dL 70-110 TESTED AT [place] [address] ([facility]) (test code = [facility] [address] 1538) COMPREHENSIVE METABOLIC [id number] 06:15:00 Test Item Value Reference Range Interpretation [...] S NOT APPLICABLE FOR DIALYSIS PATIEN TS. [id number] 06:11:00 Test Item Value Reference Range Interpretation Comments MAGNESIUM (BEAKER) (test code = 2.1 mg/dL 1.6-2.6 627) HEPATIC FUNCTION [id number] 06:11:00 Test Item Value Reference Range Interpretation [...] code = 513 U/L 6-55 H 347) [id number] 05:30:00 Test Item Value Reference Range Interpretation Comments FIBRINOGEN LEVEL (BEAKER) (test 368 mg/dl 225-434 code = 658) [id number] 05:30:00 Test Item Value Reference Range Interpretation Comments PARTIAL THROMBOPLASTIN TIME 42.2 seconds 22.5-36.0 H (BEAKER) (test code = 760) PROTHROMBIN [id number] 05:29:00 Test Item Value Reference Range Interpretation Comments PROTIME (BEAKER) (test code = 14.8 seconds 11.7-14.7 H 759) INR (BEAKER) (test code = 370) 1.2 <=5.9 RECOMMENDED COUMADIN/WARFARIN INR THERAPY RANGESSTANDARD DOSE: 2.0 - 3.0 Includes: PROPHYLAXIS forvenous thrombosis, systemic embolization; TREATMENT for venous thrombosis and/or pulmonary embolus.HIGH RISK: Target INR is 2.5-3.5 for patients with mechanical heart valves.POCT-GLUCOSE [id number] 21:09:00 Test Item Value Reference Range Interpretation Comments POC-GLUCOSE METER 178 mg/dL 70-110 H TESTED AT [place] [address] ([facility]) (test code = [facility] 1538) [address] POCT-GLUCOSE [id number] 17:18:00 Test Item Value Reference Range Interpretation Comments POC-GLUCOSE METER 178 mg/dL 70-110 H TESTED AT [place] [address] ([facility]) ([facility] 1538[facility] [address] POCT-GLUCOSE [id number] 13:48:00 Test Item Value Reference Range Interpretation Comments POC-GLUCOSE METER 150 mg/dL 70-110 H TESTED AT [place] [address] ([facility]) (test code = [facility] [place] 1538) [address] FACTOR 5 ACTIVITY (BLEEDING RISK)2017-01-06 10:04:00 Test Item Value Reference Range Interpretation Comments FACTOR V ACTIVITY (MADIE) (test code 90.0 % 60.0-150.0 = 665) Effective 10/24/2013: Reference Range Change-Adult onlyNew: 60.0-150.0 Previous: 50.0-150.0CYTOMEGALOVIRUS ANTIBODY, [id number] 09:42:00 Test Item Value Reference Range Interpretation Comments CYTOMEGALOVIRUS IGM ANTIBODY Negative (BEAKER) (test code = 816) HERPES VIRUS ANTIBODY, [id number] 08:59:00 Test Item Value Reference Range Interpretation Comments 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) (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 G 1807) CYTOMEGALOVIRUS ANTIBODY, [id number] 08:59:00 Test Item Value Reference Range Interpretation Comments CYTOMEGALOVIRUS IGG ANTIBODY Positive (BEAKER) (test code = 790) EBV-VCA ANTIBODY, [id number] 08:59:00 Test Item Value Reference Range Interpretation Comments JASE-WALL VCA IGG (BEAKER) (test Positive code = 983) EBV-VCA ANTIBODY, [id number] 08:59:00 Test Item Value Reference Range Interpretation Comments JASE-WALL VCA IGM (BEAKER) (test Negative code = 984) POCT-GLUCOSE [id number] 07:59:00 Test Item Value Reference Range Interpretation Comments POC-GLUCOSE METER 81 mg/dL 70-[address] [facility] [address] ([facility]) (test code = [place] [address] 1538) COMPREHENSIVE METABOLIC [id number] 06:23:00 Test Item Value Reference Range Interpretation [...] S NOT APPLICABLE FOR DIALYSIS PATIEN TS. [id number] 06:17:00 Test Item Value Reference Range Interpretation Comments MAGNESIUM (BEAKER) (test code = 1.8 mg/dL 1.6-2.6 627) HEPATIC FUNCTION [id number] 06:17:00 Test Item Value Reference Range Interpretation [...] code = 779 U/L 6-55 H 347) [id number] 06:00:00 Test Item Value Reference Range Interpretation Comments FIBRINOGEN LEVEL (BEAKER) (test 390 mg/dl 225-434 code = 658) [id number] 06:00:00 Test Item Value Reference Range Interpretation Comments PARTIAL THROMBOPLASTIN TIME 40.2 seconds 22.5-36.0 H ([facility]) (test code = 760) PROTHROMBIN [id number] 05:59:00 Test Item Value Reference Range Interpretation Comments PROTIME ([facility]) (test code = 14.6 seconds 11.7-14.7 759) INR ([facility]) (test code = 370) 1.2 <=5.9 RECOMMENDED COUMADIN/WARFARIN INR THERAPY RANGESSTANDARD DOSE: 2.0 - 3.0 Includes: PROPHYLAXIS forvenous thrombosis, systemic embolization; TREATMENT for venous thrombosis and/or pulmonary embolus.HIGH RISK: Target INR is 2.5-3.5 for patients with mechanical heart valves.POCT-GLUCOSE [id number] 21:46:00 Test Item Value Reference Range Interpretation Comments POC-GLUCOSE METER 153 mg/dL 70-110 H TESTED AT [place] [address] ([facility]) (test code = JULIADENZEL Eduin [facility] 1538) [id number] POCT-GLUCOSE [id number] 18:47:00 Test Item Value Reference Range Interpretation Comments POC-GLUCOSE METER 181 mg/dL 70-110 H TESTED AT [place] [address] ([facility]) (test code = [place] Eduin [facility] 1538) [address] POCT-GLUCOSE [id number] 12:40:00 Test Item Value Reference Range Interpretation Comments POC-GLUCOSE METER 178 mg/dL 70-110 H TESTED AT [place] [address] ([facility]) (test code = [facility] 1538) [address] POCT-GLUCOSE [id number] 07:51:00 Test Item Value Reference Range Interpretation Comments POC-GLUCOSE METER 166 mg/dL 70-110 H TESTED AT [place] [address] ([facility]) (test code = [facility] 1538) [address] COMPREHENSIVE METABOLIC [id number] 03:26:00 Test Item Value Reference Range Interpretation Comments TOTAL PROTEIN 5.2 gm/dL 6.0-8.3 L ([facility]) (test code = 770) ALBUMIN ([facility]) 2.3 g/dL 3.5-5.0 L (test code [...] S NOT APPLICABLE FOR DIALYSIS PATIEN TS. [id number] 03:22:00 Test Item Value Reference Range Interpretation Comments MAGNESIUM (BEAKER) (test code = 1.4 mg/dL 1.6-2.6 L 627) HEPATIC FUNCTION [id number] 03:22:00 Test Item Value Reference Range Interpretation [...] code = 1009 U/L 6-55 H 347) [id number] 03:12:00 Test Item Value Reference Range Interpretation Comments AMMONIA (BEAKER) (test code = 348) 29 mol/L 18-72 [id number] 03:10:00 Test Item Value Reference Range Interpretation Comments PARTIAL THROMBOPLASTIN TIME 42.3 seconds 22.5-36.0 H (BEAKER) (test code = 760) PROTHROMBIN [id number] 03:09:00 Test Item Value Reference Range Interpretation Comments PROTIME (BEAKER) (test code = 16.4 seconds 11.7-14.7 H 759) INR (BEAKER) (test code = 370) 1.3 <=5.9 RECOMMENDED COUMADIN/WARFARIN INR THERAPY RANGESSTANDARD DOSE: 2.0 - 3.0 Includes: PROPHYLAXIS forvenous thrombosis, systemic embolization; TREATMENT for venous thrombosis and/or pulmonary embolus.HIGH RISK: Target INR is 2.5-3.5 for patients with mechanical heart valves.[id number] 03:09:00 Test Item Value Reference Range Interpretation Comments FIBRINOGEN LEVEL (BEAKER) (test 413 mg/dl 225-434 code = 658) CBC W/PLT COUNT & AUTO [id number] 03:09:00 Test Item Value Reference Range Interpretation [...] L 0.00-0.20 (test code = 417) 0.00POCT-GLUCOSE [id number] 22:33:00 Test Item Value Reference Range Interpretation Comments POC-GLUCOSE METER 230 mg/dL 70-[address] [facility] ([facility]) (test code = [facility] 1538) [id number] POCT-GLUCOSE [id number] 18:17:00 Test Item Value Reference Range Interpretation Comments POC-GLUCOSE METER 222 mg/dL 70-[address] [facility] ([facility]) (test code = [facility] 1538) [address] COMPREHENSIVE METABOLIC [id number] 16:59:00 Test Item Value Reference Range Interpretation [...] PATIEN TS. PERIPHERAL BLOOD SMEAR - PATHOLOGIST [id number] 15:30:00 Test Item Value Reference Range Interpretation Comments RBC MORPHOLOGY Polychromasia (BEAKER) (test code = 2846) RBC MORPHOLOGY Anisocytosis (BEAKER) (test code = 64080) PERIPHERAL SMR REVIEW Cell counts confirmed (BEAKER) (test code = 1210) [id number] Josefina Lara M.D. (BEAKER) (test code = (electronic signature) 6292) PROTHROMBIN [id number] 15:12:00 Test Item Value Reference Range Interpretation [...] Reference Range Interpretation Comments ANTI-NUCLEAR ANTIBODY (IVETTE) (Leaderz) Negative Negative (test code = 418) POCT-GLUCOSE [id number] 12:47:00 Test Item Value Reference Range Interpretation Comments POC-GLUCOSE METER 212 mg/dL 70-[address] [facility] ([facility]) (test code = [place] 1538) [address] [id number] 12:34:00 Test Item Value Reference Range Interpretation Comments RPR SCREEN (Leaderz) (test code = Nonreactive Nonreactive 420) CLOSTRIDIUM DIFFICILE TOXIN [id number] 10:12:00 Test Item Value Reference Range Interpretation Comments CLOSTRIDIUM DIFFICILE TOXIN, PCR Not Detected Not Detected (Leaderz) (test code = 1525) This qualitative real-time [...] Reference Range Interpretation Comments FACTOR V ACTIVITY (Leaderz) (test code 86.0 % 60.0-150.0 = 665) Effective 10/24/2013: Reference Range Change-Adult onlyNew: 60.0-150.0 Previous: 50.0-150.0FACTOR 5 ACTIVITY (BLEEDING RISK)2017-01-04 09:13:00 Test Item Value Reference Range Interpretation Comments FACTOR V ACTIVITY (BEAKER) (test code 56.0 % 60.0-150.0 L = 665) Effective 10/24/2013: Reference Range Change-Adult onlyNew: 60.0-150.0 Previous: 50.0-150.0POCT-GLUCOSE [id number] 06:40:00 Test Item Value Reference Range Interpretation Comments POC-GLUCOSE METER 167 mg/dL 70-[address] [facility] (BEAKER) (test code = [place] 1538) [address] COMPREHENSIVE METABOLIC [id number] 04:08:00 Test Item Value Reference Range Interpretation [...] ESTIM ATED GFR. Specimen slightly ictericHEPATIC FUNCTION [id number] 04:06:00 Test Item Value Reference Range Interpretation [...] 1091 U/L 6-55 H 347) Specimen slightly [id number] 04:01:00 Test Item Value Reference Range Interpretation Comments FIBRINOGEN LEVEL (BEAKER) (test 379 mg/dl 225-434 code = 658) [id number] 04:01:00 Test Item Value Reference Range Interpretation Comments PARTIAL THROMBOPLASTIN TIME 40.7 seconds 22.5-36.0 H (BEAKER) (test code = 760) PROTHROMBIN [id number] 04:00:00 Test Item Value Reference Range Interpretation [...] L 0.00-0.20 (test code = 417) 0.00POCT-GLUCOSE [id number] 00:19:00 Test Item Value Reference Range Interpretation Comments POC-GLUCOSE METER 159 mg/dL 70-[address] [facility] (BEAKER) (test code = [place] 1538) [address] POCT-GLUCOSE [id number] 18:56:00 Test Item Value Reference Range Interpretation Comments POC-GLUCOSE METER 192 mg/dL 70-[address] [facility] (BEAKER) (test code = [place] 1538) [address] COMPREHENSIVE METABOLIC [id number] 16:55:00 Test Item Value Reference Range Interpretation [...] CALCULATE ESTIM ATED GFR. Specimen slightly ictericPROTHROMBIN [id number] 16:37:00 Test Item Value Reference Range Interpretation Comments PROTIME (BEAKER) (test code = 20.9 seconds 11.7-14.7 H 759) INR (BEAKER) (test code = 370) 1.8 <=5.9 RECOMMENDED COUMADIN/WARFARIN INR THERAPY RANGESSTANDARD DOSE: 2.0 - 3.0 Includes: PROPHYLAXIS forvenous thrombosis, systemic embolization; TREATMENT for venous thrombosis and/or pulmonary embolus.HIGH RISK: Target INR is 2.5-3.5 for patients with mechanical heart valves.HEPATITIS B SURFACE [id number] 14:05:00 Test Item Value Reference Range Interpretation Comments HEPATITIS B SURFACE ANTIBODY < mIU/mL <8.0 (BEAKER) (test code = 647) HEPATITIS B CORE ANTIBODY, [id number] 13:43:00 Test Item Value Reference Range Interpretation Comments HEPATITIS B CORE TOTAL ANTIBODY Nonreactive Nonreactive (BEAKER) (test code = 497) BLOOD GAS, [id number] 13:35:00 Test Item Value Reference Range Interpretation [...] code = 1819) 28.0 % URINALYSIS W/ [id number] 13:16:00 Test Item Value Reference Range Interpretation [...] 1584) SOURCE(BEAKER) (test code = Urine, [place] 8805) VITAMIN D, [id number] 13:14:00 Test Item Value Reference Range Interpretation Comments VITAMIN D 25-OH (BEAKER) (test code = < ng/mL 13.0-47.8 L 2764) ALPHA FETOPROTEIN (AFP), TUMOR [id number] 13:06:00 Test Item Value Reference Range Interpretation Comments ALPHA-FETOPROTEIN (BEAKER) (test code < ng/mL <10.0 = 1094) Effective 05/08/2014: Reference Range ChangeNew: <10.0 Previous: 0.0-8.0 HEMOGLOBIN [id number] 13:05:00 Test Item Value Reference Range Interpretation Comments HEMOGLOBIN A1C (BEAKER) (test code = 7.6 % 4.3-6.1 H 368) CARCINOEMBRYONIC ANTIGEN (CEA)2017-01-03 12:59:00 Test Item Value Reference Range Interpretation Comments CARCINOEMBRYONIC ANTIGEN (BEAKER) 2.0 ng/mL 0.0-5.0 (test code = 685) [id number] 12:59:00 Test Item Value Reference Range Interpretation Comments FERRITIN (BEAKER) (test code = 1841 ng/mL 5-275 H 361) Effective 05/08/2014: Reference Range ChangeNew: Male 5-275 Previous: Male 22-322 Female 5-275 Female [id number] 12:58:00 Test Item Value Reference Range Interpretation Comments T4 TOTAL (BEAKER) (test code = 895) 4.5 ug/dL 4.9-11.7 L [id number] 12:58:00 Test Item Value Reference Range Interpretation Comments THYROID STIMULATING HORMONE 1.79 uIU/mL 0.35-4.94 (BEAKER) (test code = 772) [id number] 12:58:00 Test Item Value Reference Range Interpretation Comments T3 TOTAL (BEAKER) (test code = 656) 34 ng/dL 48-159 L Effective 05/08/2014: Reference Range ChangeNew: 48-159 Previous: 60-181 CALCIUM, [id number] 12:47:00 Test Item Value Reference Range Interpretation Comments CALCIUM IONIZED (BEAKER) (test 1.05 mmol/L 1.12-1.27 L code = 698) PH, BLOOD (BEAKER) (test code = 7.43 1810) [id number] 12:42:00 Test Item Value Reference Range Interpretation [...] % 20-55 (test code = 2590) URIC [id number] 12:40:00 Test Item Value Reference Range Interpretation Comments URIC ACID (BEAKER) (test code = 16.0 mg/dL 2.6-7.2 H 773) Specimen slightly ictericLIPID [id number] 12:40:00 Test Item Value Reference Range Interpretation [...] 160-189 Very High >=190 Specimen slightly ictericBILIRUBIN, [id number] 12:40:00 Test Item Value Reference Range Interpretation Comments BILIRUBIN DIRECT (MADIE) (test 2.4 mg/dL 0.1-0.5 H code = 706) GAMMA GLUTAMYL TRANSFERASE (GGT)2017-01-03 12:40:00 Test Item Value Reference Range Interpretation Comments GAMMA GLUTAMYL TRANSFERASE (MADIE) 53 U/L 9-64 (test code = 364) Specimen slightly [id number] 12:39:00 Test Item Value Reference Range Interpretation Comments ETHANOL (MADIE) (test code = 400) < mg/dL <=10 SCREEN, [id number] 12:36:00 Test Item Value Reference Range Interpretation Comments TEST URINE (MADIE) (test Negative code = 583) POCT-GLUCOSE [id number] 12:34:00 Test Item Value Reference Range Interpretation Comments POC-GLUCOSE METER 189 mg/dL 70-[address] [facility] (MADIE) (test code = [place] 1538) [address] HIV-1 ANTIGEN WITH HIV-1/2 [id number] 11:58:00 Test Item Value Reference Range Interpretation Comments HIV-1 ANTIGEN WITH HIV 1\\T\\2 Nonreactive Nonreactive ANTIBODY (2) ([employer]) (test code = 2586) TROPONIN [id number] 09:44:00 Test Item Value Reference Range Interpretation [...] Previous: 0.0-4.9CK-MB Reference Range:<6.7 Normal6.7-10.0 Borderline>10.0 AbnormalACETAMINOPHEN [id number] 08:31:00 Test Item Value Reference Range Interpretation Comments ACETAMINOPHEN LEVEL (BEAKER) (test < ug/mL 10.0-30.0 L code = 344) TROPONIN [id number] 05:53:00 Test Item Value Reference Range Interpretation [...] acute neurological disease, and persistent tachyarrhythmia.BASIC METABOLIC [id number] 05:53:00 Test Item Value Reference Range Interpretation [...] TO CALCULA TE ESTIMATED GFR. Specimen slightly [id number] 05:52:00 Test Item Value Reference Range Interpretation Comments PHOSPHORUS (BEAKER) (test code = 5.7 mg/dL 2.3-4.7 H 604) HEPATIC FUNCTION [id number] 05:52:00 Test Item Value Reference Range Interpretation [...] Specimen slightly ictericCREATINE KINASE (CK), TOTAL AND [id number] 05:52:00 Test Item Value Reference Range Interpretation Comments CREATINE KINASE TOTAL (BEAKER) 341 U/L 29-200 H (test code = 380) CREATINE KINASE-MB (BEAKER) (test 5.4 ng/mL 0.0-6.6 code = 750) CREATINE KINASE-MB INDEX (BEAKER) 1.6 % (test code = 395) Effective 05/08/2014: CK-MB Reference Range ChangeNew: 0.0-6.6 Previous: 0.0-4.9CK-MB Reference Range:<6.7 Normal6.7-10.0 Borderline>10.0 AbnormalCBC W/PLT COUNT & AUTO [id number] 05:48:00 Test Item Value Reference Range Interpretation [...] K/ L 0.00-0.20 (test code = 417) [id number] 05:09:00 Test Item Value Reference Range Interpretation Comments FIBRINOGEN LEVEL (BEAKER) (test 427 mg/dl 225-434 code = 658) [id number] 05:09:00 Test Item Value Reference Range Interpretation Comments PARTIAL THROMBOPLASTIN TIME 36.2 seconds 22.5-36.0 H (BEAKER) (test code = 760) PROTHROMBIN [id number] 05:08:00 Test Item Value Reference Range Interpretation Comments PROTIME (BEAKER) (test code = 22.8 seconds 11.7-14.7 H 759) INR (BEAKER) (test code = 370) 2.0 <=5.9 RECOMMENDED COUMADIN/WARFARIN INR THERAPY RANGESSTANDARD DOSE: 2.0 - 3.0 Includes: PROPHYLAXIS forvenous thrombosis, systemic embolization; TREATMENT for venous thrombosis and/or pulmonary embolus.HIGH RISK: Target INR is 2.5-3.5 for patients with mechanical heart valves.HEPATITIS PANEL, [id number] 03:40:00 Test Item Value Reference Range Interpretation Comments HEPATITIS A IGM ANTIBODY (BEAKER) Nonreactive Nonreactive (test code = 498) HEPATITIS B CORE IGM ANTIBODY Nonreactive Nonreactive (BEAKER) (test code = 645) HEPATITIS C ANTIBODY (BEAKER) Nonreactive Nonreactive (test code = 367) HEPATITIS B SURFACE ANTIGEN (2) Nonreactive Nonreactive (BEAKER) (test code = 2585) CREATININE, RANDOM [id number] 03:18:00 Test Item Value Reference Range Interpretation Comments CREATININE URINE (BEAKER) (test 118.7 mg/dL code = 375) Reference Range: No NormalsSODIUM, RANDOM [id number] 03:18:00 Test Item Value Reference Range Interpretation Comments SODIUM URINE (BEAKER) (test code = 60 meq/L 243) Reference Range: No NormalsUREA NITROGEN, RANDOM [id number] 03:18:00 Test Item Value Reference Range Interpretation Comments UREA NITROGEN URINE (BEAKER) (test 303 mg/dL code = 538) Reference Range: No [id number] 03:07:00 Test Item Value Reference Range Interpretation Comments AMMONIA (BEAKER) (test code = 348) 48 mol/L 18-72 [id number] 02:57:00 Test Item Value Reference Range Interpretation [...] within 95-100% range. URINALYSIS W/ REFLEX URINE [id number] 02:53:00 Test Item Value Reference Range Interpretation [...] = 514) SOURCE(BEAKER) (test code = 2795) [id number] 02:49:00 Test Item Value Reference Range Interpretation Comments PARTIAL THROMBOPLASTIN TIME 39.4 seconds 22.5-36.0 H (BEAKER) (test code = 760) PROTHROMBIN [id number] 02:48:00 Test Item Value Reference Range Interpretation Comments PROTIME (BEAKER) (test code = 22.0 seconds 11.7-14.7 H 759) INR (BEAKER) (test code = 370) 1.9 <=5.9 RECOMMENDED COUMADIN/WARFARIN INR THERAPY RANGESSTANDARD DOSE: 2.0 - 3.0 Includes: PROPHYLAXIS forvenous thrombosis, systemic embolization; TREATMENT for venous thrombosis and/or pulmonary embolus.HIGH RISK: Target INR is 2.5-3.5 for patients with mechanical heart valves.[id number] 02:48:00 Test Item Value Reference Range Interpretation Comments FIBRINOGEN LEVEL (BEAKER) (test 421 mg/dl 225-434 code = 658) BLOOD GAS, [id number] 02:43:00 Test Item Value Reference Range Interpretation [...] 21.0 % CBC W/PLT COUNT & AUTO [id number] 02:43:00 Test Item Value Reference Range Interpretation [...] code = 417) 0.00LACTIC ACID, VENOUS, WHOLE [id number] 02:35:00 Test Item Value Reference Range Interpretation Comments LACTATE BLOOD VENOUS (2) (BEAKER) 0.8 mmol/L 0.5-2.2 (test code = 2872) Effective 10/23/2015: Units/Reference Range ChangeNew: 0.5-2.2 mmol/L Previous: 5-20 mg/dLSpecimen slightly icteric
[2020-10-28 00:09] LABS: Absolute Lymphocytes (CBC) 0.7 K/uL (0.7-4.9); Basophils % 0.6 % (0-1.3); Hematocrit 27.6 % (36.0-45.0); MPV 10.9 fL (7.6-11.3); RBC Red Blood Cell Count 2.99 M/uL (3.86-4.86)
[2020-10-28] MEDS ORDERED: HYDROMORPHONE HCL 1 MG/ML INJ ONE (00:10)
[2020-10-28] MEDS ORDERED: PANTOPRAZOLE 40 MG INJ ONE ×2 (00:11→07:40)
[2020-10-28] MEDS ORDERED: ONDANSETRON 4 MG/2 ML VIAL ONE (00:11)
[2020-10-28 00:43] LABS: Albumin 3.6 g/dL (3.4-5.0); Bilirubin Direct 0.2 mg/dL (0-0.2); Bilirubin Total 0.5 mg/dL (0.2-1.0); Potassium 5.4 mmol/L (3.5-5.1); Protein, Total 7.1 g/dL (6.4-8.2)
[2020-10-28] MEDS ORDERED: NA CHLORIDE 0.9% 250 ML ONE (01:13)
[2020-10-28 01:29] LABS: Blood Morphology Comment NOT SEEN (NOT SEEN); Platelet Estimate ADEQ; White Blood Cell Scan OK (OK)
--- NOTE | 2020-10-28 01:33 | EDPHYS ---
Physician Documentation [facility] Name: Cathi Zaldivar Age: 40 yrs Sex: Female : 1980 Arrival Date: 10/27/2020 Time: 19:18 Bed 25 Private MD: ED Physician Obed Contreras HPI: 10/27 22:09 This 40 yrs old Female presents to ER via Wheelchair with complaints of cp Abdominal Pain. 22:10 The patient presents with abdominal pain that is diffuse. cp 22:10 Onset: The symptoms/episode began/occurred yesterday. The symptoms do not radiate. cp Associated signs and symptoms: Pertinent positives: nausea and vomiting, Pertinent negatives: blood in stools, constipation, diarrhea, fever, vomiting blood. The patient has experienced similar episodes in the past, chronically. The patient has been recently seen at the [facility], today, for similar complaints labs were performed, CT scan was performed. Historical: - Allergies: 20:23 ambien; jb4 20:23 Codeine; jb4 20:23 Demerol; jb4 20:23 GUAIFENESIN; jb4 20:23 Lisinopril; jb4 20:23 Morphine; jb4 20:23 Nitrofurantoin Macrocrystal; jb4 20:23 PENICILLINS; jb4 20:23 Prolixin; jb4 20:23 zolpidem tartrate; jb4 - Home Meds: 20:23 divalproex 500 mg Oral tab 2 times per day [Active]; doxazosin 4 mg Oral tab [Active]; jb4 gabapentin 100 mg Oral cap as needed [Active]; hydralazine 50 mg Oral tab [Active]; Lantus 100 unit/mL Sub-Q tab as needed [Active]; metoprolol tartrate 25 mg Oral tab 1 tab 2 times per day [Active]; Novolog 100 unit/mL Sub-Q tab [Active]; pravastatin Oral [Active]; sertraline 100 mg Oral tab [Active]; tramadol 50 mg Oral tab 1 tab PRN [Active]; - PMHx: 20:23 "mental problems"; CHF; chronic kidney disease; cyclic vomiting syndrome; Diabetes - jb4 NIDDM; Dialysis; m-w-f; ENCEPHALOPATHY; Gastroparesis; HD-TTHSat; Hypertension; liver failure; PERIPHERAL NEUROPATHY; Seizures; - Immunization history:: Adult Immunizations up to date. - Social history:: Smoking status: Patient denies any tobacco usage or history of. Patient/guardian denies using alcohol, street drugs. ROS: 22:15 Constitutional: Positive for poor PO intake, Negative for body aches, chills, fever. cp 22:15 Eyes: Negative for injury, pain, redness, and discharge. cp 22:15 ENT: Negative for ear pain, sore throat, difficulty swallowing, difficulty handling secretions. 22:15 Cardiovascular: Negative for chest pain. 22:15 Respiratory: Negative for cough, shortness of breath, wheezing. 22:15 Abdomen/GI: Positive for abdominal pain, nausea and vomiting, Negative for diarrhea, constipation, hematemesis, black/tarry stool, rectal bleeding. 22:15 Neuro: Negative for altered mental status. 22:15 All other systems are negative. Exam: 22:18 Constitutional: The patient appears in no acute distress, alert, awake, non-toxic, well cp developed, well nourished, uncomfortable. 22:18 Head/Face: Normocephalic, atraumatic. cp 22:18 Eyes: Periorbital structures: appear normal, Conjunctiva: normal, no exudate, no cp injection, Sclera: no appreciated abnormality, Lids and lashes: appear normal, bilaterally. 22:18 ENT: External ear(s): are unremarkable, Nose: is normal, Mouth: Lips: dry, Oral mucosa: cp moist, Posterior pharynx: Airway: no evidence of obstruction, patent. 22:18 Chest/axilla: Inspection: normal, Palpation: is normal, no crepitus, no tenderness. 22:18 Cardiovascular: Rate: normal. 22:18 Respiratory: the patient does not display signs of respiratory distress, Respirations: normal, no use of accessory muscles, no retractions, labored breathing, is not present, Breath sounds: are clear throughout, no decreased breath sounds. 22:18 Abdomen/GI: Inspection: abdomen appears normal, Bowel sounds: active, all quadrants, Palpation: soft, in all quadrants, severe abdominal tenderness, in all quadrants, rebound tenderness, is not appreciated, voluntary guarding, is elicited in all quadrants. Vital Signs: 20:18 BP 182 / 82; Pulse 64; Resp 16; Temp 98.0(TE); Pulse Ox 100% on R/A; Weight 75.4 kg jb4 (R); Height 5 ft. 3 in. (160.02 cm) (R); Pain 03/30; 10/28 00:00 BP 147 / 96; Pulse 64; Resp 20; Pulse Ox 97% on 2 lpm NC; lp1 02:00 BP 157 / 72; Pulse 68; Resp 18; Pulse Ox 98% on R/A; lp1 03:30 BP 168 / 68; Pulse 68; Resp 18; Pulse Ox 97% on R/A; lp1 10/27 20:18 Body Mass Index 29.45 (75.40 kg, 160.02 cm) jb4 MDM: 10/27 22:01 Patient medically screened. 22:30 Differential diagnosis: cholecystitis, Cholelithiasis, gastritis, pancreatitis. 10/28 01:30 Data reviewed: vital signs, nurses notes, lab test result(s). Physician consultation: citlali ESQUEDA was called at 01:25, was contacted at 01:25, regarding admission, to the telemetry unit. patient's condition. 10/27 22:09 Order name: Basic Metabolic Panel 10/27 22: Order name: CBC with Diff 10/28 00:34 Interpretation: Normal except: WBC 2.50; RBC 2.99; HGB 8.8; HCT 27.6; MCHC 31.9; PLT cp 91; RDW 16.4; NEUT A 1.6. 10/27 22:09 Order name: Hepatic Function; Complete Time: 01:14 10/28 01:14 Interpretation: Normal except: AST 63; A/G 1.0. 10/27 22:09 Order name: Lipase; Complete Time: 01:14 10/28 01:18 Interpretation: LIP 30; Reviewed. 10/27 22:10 Order name: Basic Metabolic Panel; Complete Time: 01:14 EDNY 10/28 01:14 Interpretation: Normal except: K 5.4; GLUC 64; BUN 49; GFR 6; CA 8.3. 10/27 23:45 Order name: COVID-19 : Document "Date of Symptom Onset" if Symptomatic. 10/28 00:33 Order name: CBC Smear Scan EDNY 10/28 01:25 Order name: SARS-COV-2 RT PCR EDMS 10/28 04:21 Order name: Glucose, Ancillary Testing EDNY 10/28 05:28 Order name: Glucose, Ancillary Testing EDNY 10/28 06:54 Order name: Glucose, Ancillary Testing EDMS 10/28 07:12 Order name: Comprehensive Metabolic Panel EDNY 10/28 07:12 Order name: Phosphorus EDMS 10/28 07:12 Order name: Magnesium EDMS 10/28 08:20 Order name: Urinalysis EDNY 10/28 08:32 Order name: Urine Microscopic Only EDMS 10/28 08:37 Order name: Glucose, Ancillary Testing EDMS 10/28 09:28 Order name: Glucose, Ancillary Testing EDNY 10/28 10:10 Order name: Glucose, Ancillary Testing EDNY 10/28 14:04 Order name: Type and Screen EDNY 10/28 15:59 Order name: Glucose, Ancillary Testing EDNY 10/27 22:09 Order name: IV Saline Lock; Complete Time: 00:01 cp 10/27 22:09 Order name: Labs collected and sent; Complete Time: 00:01 cp 10/28 00:45 Order name: PO challenge; Complete Time: 00:59 lp 10/28 02:13 Order name: CONS Physician Consult EDNY Administered Medications: 10/27 23:50 Drug: Dilaudid (HYDROmorphone) 1 mg Route: IVP; Site: left antecubital; 1 10/28 00:40 Follow up: Response: Pain is decreased [facility] 10/27 23:50 Drug: ProTONIX (pantoprazole) 40 mg Route: IVP; Site: left antecubital; lp1 10/28 00:41 Follow up: Response: No adverse reaction lp1 10/27 23:50 Drug: Zofran (Ondansetron) 4 mg Route: IVP; Site: left antecubital; lp1 10/28 00:41 Follow up: Response: Nausea is decreased lp1 00:59 Drug: NS 0.9% 250 ml Route: IV; Rate: bolus; Site: left antecubital; 02:21 Drug: Kayexalate (polystyrene) 30 grams Route: PO; 04:15 Drug: GlucaGen (glucagon) 2 mg Route: IM; Site: right gluteus; [facility] 04:15 Drug: Phenergan (promethazine) 25 mg Route: IM; Site: right gluteus; lp1 Disposition: 10/28/20 01:32 Hospitalization ordered by John Farrell for Observation. Preliminary diagnosis are Nausea and vomiting, Coronavirus infection, unspecified, Hyperkalemia. - Bed requested for [facility] ER HOLD. - Status is Observation. aa5 - Condition is Stable. - Problem is new. - Symptoms have improved. Addendum: 11/12/2020 05:09 Co-signature as Attending Physician, Obed Contreras MD I agree with the assessment and t w4 plan of care. Signatures: Dispatcher [employer] EDNY Saida Zepeda RN RN mw Lorelei Newman RN RN aa5 Hollie Tomas RN RN lp1 Luis Ruvalcaba PA PA cp Bryson, James, RN RN jb4 Rahel Sims, RN RN Obed Contreras MD MD tw4 Corrections: (The following items were deleted from the chart) 10/28 00:28 05 23:45 CORONAVIRUS ordered. EDNY EDNY 10/28 01:14 01:14 Normal except: K 5.4; GLUC 64; BUN 49; GFR 6. cp cp 01:52 01:32 Hospitalization Ordered by John ESQUEDA for Observation. Preliminary diagnosis mw is Nausea and vomiting; Coronavirus infection, unspecified; Hyperkalemia. Bed requested for Telemetry/MedSurg (observation). Status is Observation. Condition is Stable. Problem is new. Symptoms have improved. cp 18:29 01:52 10/28/2020 01:32 Hospitalization Ordered by John ESQUEDA for Observation. aa5 Preliminary diagnosis is Nausea and vomiting; Coronavirus infection, unspecified; Hyperkalemia. Bed requested for [facility] ER HOLD. Status is Observation. Condition is Stable. Problem is new. Symptoms have improved. mw
--- NOTE | 2020-10-28 01:33 | ER ---
Nurse's Notes [facility] Name: Cathi Zaldivar Age: 40 yrs Sex: Female : 1980 Arrival Date: 10/27/2020 Time: 19:18 Bed 25 Private MD: Diagnosis: Nausea and vomiting;Coronavirus infection, unspecified;Hyperkalemia Presentation: 10/27 20:18 Chief complaint: Patient states: My gastroparesis is acting up and I am in a lot of jb4 pain. It started , I was here earlier today. I was discharged and when I got home, I was throwing up and couldn't stop. They gave me zofran for the nausea and it has not helped. Coronavirus screen: Client denies travel out of the [place] in the last 14 days. At this time, the client does not indicate any symptoms associated with coronavirus-19. Ebola Screen: No symptoms or risks identified at this time. Initial Sepsis Screen: Does the patient meet any 2 criteria? No. Patient's initial sepsis screen is negative. Does the patient have a suspected source of infection? Yes: Acute abdominal pain. Risk Assessment: Do you want to hurt yourself or someone else? Patient reports no desire to harm self or others. Onset of symptoms was October 24, 2020. Transition of care: patient was not received from another setting of care. 20:18 Method Of Arrival: Wheelchair jb4 20:18 Acuity: JESSICA 3 jb4 Triage Assessment: 20:23 General: Appears in no apparent distress. uncomfortable, Behavior is calm, cooperative. jb4 Pain: Complains of pain in abdomen Pain does not radiate. Pain currently is 10 out of 10 on a pain scale. GI: Reports lower abdominal pain, nausea, vomiting, since earlier today. Historical: - Allergies: 20:23 ambien; jb4 20:23 Codeine; jb4 20:23 Demerol; jb4 20:23 GUAIFENESIN; jb4 20:23 Lisinopril; jb4 20:23 Morphine; jb4 20:23 Nitrofurantoin Macrocrystal; jb4 20:23 PENICILLINS; jb4 20:23 Prolixin; jb4 20:23 zolpidem tartrate; jb4 - Home Meds: 20:23 divalproex 500 mg Oral tab 2 times per day [Active]; doxazosin 4 mg Oral tab [Active]; jb4 gabapentin 100 mg Oral cap as needed [Active]; hydralazine 50 mg Oral tab [Active]; Lantus 100 unit/mL Sub-Q tab as needed [Active]; metoprolol tartrate 25 mg Oral tab 1 tab 2 times per day [Active]; Novolog 100 unit/mL Sub-Q tab [Active]; pravastatin Oral [Active]; sertraline 100 mg Oral tab [Active]; tramadol 50 mg Oral tab 1 tab PRN [Active]; - PMHx: 20:23 "mental problems"; CHF; chronic kidney disease; cyclic vomiting syndrome; Diabetes - jb4 NIDDM; Dialysis; m-w-f; ENCEPHALOPATHY; Gastroparesis; HD-TTHSat; Hypertension; liver failure; PERIPHERAL NEUROPATHY; Seizures; - Immunization history:: Adult Immunizations up to date. - Social history:: Smoking status: Patient denies any tobacco usage or history of. Patient/guardian denies using alcohol, street drugs. Screenin/10 03:30 Abuse screen: Denies threats or abuse. Denies injuries from another. Nutritional lp1 screening: No deficits noted. Tuberculosis screening: No symptoms or risk factors identified. Fall Risk None identified. Assessment: 10/27 22:35 General: Appears in no apparent distress. Behavior is appropriate for age. Pain: lp1 Complains of pain in abdomen Pain currently is 8 out of 10 on a pain scale. Neuro: Level of Consciousness is awake, alert, obeys commands, Oriented to person, place, time, situation. Cardiovascular: Patient's skin is warm and dry. Dialysis shunt: in the right bicep. Respiratory: Respiratory effort is even, unlabored. GI: Abdomen is non-distended, Pt is actively vomiting bile, Bowel sounds present X 4 quads. Abd is soft and non tender X 4 quads. : No signs and/or symptoms were reported regarding the genitourinary system. EENT: No signs and/or symptoms were reported regarding the EENT system. Derm: Skin is pink, warm \\T\\ dry. Musculoskeletal: No deficits noted. 10/28 00:00 Reassessment: Provider and charge nurse, TABATHA Shaikh notified of IV infiltration to L lp1 AC; TABATHA Shaikh to attempt IV access via ultrasound. 00:30 Reassessment: Patient appears in no apparent distress at this time. Patient appears lp1 comfortable at this time; eyes closed, respirations even, unlabored. 01:30 Reassessment: Patient tolerated PO fluids at this time. lp1 02:30 Reassessment: Patient resting, eyes closed, respirations even, unlabored; arousable. lp1 04:10 Reassessment: Provider notified of Glucose of 56, and nausea returning, aware of no lp1 peripheral IV access; verbal order for Glucagon 5mg IM, Phenergan 25mg IM now. Vital Signs: 10/27 20:18 BP 182 / 82; Pulse 64; Resp 16; Temp 98.0(TE); Pulse Ox 100% on R/A; Weight 75.4 kg jb4 (R); Height 5 ft. 3 in. (160.02 cm) (R); Pain 10/10; 10/28 00:00 BP 147 / 96; Pulse 64; Resp 20; Pulse Ox 97% on 2 lpm NC; lp1 02:00 BP 157 / 72; Pulse 68; Resp 18; Pulse Ox 98% on R/A; lp1 03:30 BP 168 / 68; Pulse 68; Resp 18; Pulse Ox 97% on R/A; lp1 05 20:18 Body Mass Index 29.45 (75.40 kg, 160.02 cm) jb4 ED Course: 10/27 19:18 Patient arrived in ED. bp1 20:21 Triage completed. jb4 20:23 Arm band placed on right wrist. jb4 21:42 Rahel Sims, TABATHA is Primary Nurse. wh 21:55 Luis Ruvalcaba PA is PHCP. cp 21:55 Obed Contreras MD is Attending Physician. cp 22:35 Patient has correct armband on for positive identification. Pulse ox on. NIBP on. lp1 23:30 Initial lab(s) drawn, by me, sent to lab. Inserted saline lock: 22 gauge in left bb antecubital area, using aseptic technique. Blood collected. 10/28 00:00 22g IV to L AC infiltrated at this time; IV removed. lp1 00:10 Inserted saline lock: 18 gauge in left upper arm, using aseptic technique. bb 01:31 John Farrell PA is Hospitalizing Provider. cp 03:30 No provider procedures requiring assistance completed. lp1 03:50 Missed attempt(s): 20 gauge in left antecubital area. Bleeding controlled, band aid bb applied, catheter tip intact. 07:19 Primary Nurse role handed off by Rahel Sims RN bd Administered Medications: 10/27 23:50 Drug: Dilaudid (HYDROmorphone) 1 mg Route: IVP; Site: left antecubital; lp1 10/28 00:40 Follow up: Response: Pain is decreased lp1 10/27 23:50 Drug: ProTONIX (pantoprazole) 40 mg Route: IVP; Site: left antecubital; lp1 10/28 00:41 Follow up: Response: No adverse reaction lp1 10/27 23:50 Drug: Zofran (Ondansetron) 4 mg Route: IVP; Site: left antecubital; lp1 10/28 00:41 Follow up: Response: Nausea is decreased lp1 00:59 Drug: NS 0.9% 250 ml Route: IV; Rate: bolus; Site: left antecubital; 02:21 Drug: Kayexalate (polystyrene) 30 grams Route: PO; 04:15 Drug: GlucaGen (glucagon) 2 mg Route: IM; Site: right gluteus; lp1 04:15 Drug: Phenergan (promethazine) 25 mg Route: IM; Site: right gluteus; lp1 Outcome: 01:32 Decision to Hospitalize by Provider. cp 04:00 Admitted to Report called to TABATHA Benton; Patient admitted, remains in ED lp1 04:00 Condition: stable 04:00 Instructed on the need for admit. 18:29 Patient left the ED. aa5 Signatures: Shruthi Stiles Brenda, RN RN bb Lorelei Newman RN RN aa5 Hollie Tomas RN RN 1 Luis Ruvalcaba PA PA cp Bryson, James, RN RN jb4 Rahel Sims RN RN Mylene Banerjee [facility] Corrections: (The following items were deleted from the chart) 04:27 03:30 Admitted to Report called to TABATHA Benton; Patient admitted, remains in ED lp1 lp1 04:27 03:30 Condition: stable lp1 lp1 04:27 03:30 Instructed on the need for admit, lp1 lp1
--- NOTE | 2020-10-28 02:27 | P.HP ---
Certification for Inpatient Patient admitted to: Inpatient With expected LOS: >2 Midnights Patient will require the following post-hospital care: None Practitioner: I am a practitioner with admitting privileges, knowledge of patient current condition, hospital course, and medical plan of care. Services: Services provided to patient in accordance with Admission requirements found in Title 42 Section 412.3 of the Code of Federal Regulations Patient History Date of Service: 10/28/20 Reason for admission: intractable nausea and vomiting History of Present Illness: Ms. Zaldivar is a 40 yo F with DM, HTN, gastroparesis, and ESRD on HD MWF here today for intractable nausea, vomiting, diffuse abdominal pain, and diarrhea beginning on . She has been unable to eat. Reports no relief with oral antiemetics. She was recently discharged for these same symptoms. On she saw her GI doctor and he is waiting for clearance for her to have an upper GI study. She has not missed a dialysis appointment. She is now COVID+, reports cough, O2 sats wnl. Hgb 8.8. Plt 91. K 5.4. BUN 49. Cr 7.73. GFR 6. Glu 64. Allergies zolpidem tartrate [From Ambien] Allergy (Intermediate, Verified 10/17/16 23:08) Itching/Hives/Rash codeine [Codeine] Allergy (Verified 10/17/16 23:08) Hives fluphenazine enanthate [From Prolixin] Allergy (Verified 10/17/16 23:08) ARM NUMBNESS fluphenazine HCl [From Prolixin] Allergy (Verified 10/17/16 23:08) ARM NUMBNESS guaifenesin [From Prolex D] Allergy (Verified 10/17/16 23:08) Hives lisinopril Allergy (Verified 04/21/17 10:26) Anaphylaxis morphine Allergy (Verified 10/01/20 10:03) Itching Penicillins Allergy (Verified 10/17/16 23:08) Hives phenylephrine HCl [From Prolex D] Allergy (Verified 10/17/16 23:08) Hives nitrofurantoin Adverse Reaction (Verified 08/07/17 23:41) liver failure Home Medications: Calcium Acetate [Phoslo*] 2 cap PO TIDWM 03/05/20 Calcium Acetate [Phoslo*] 667 mg PO SNACKS 03/05/20 Divalproex Sodium [Divalproex Sodium ER] 500 mg PO BID 03/05/20 Linagliptin [Tradjenta] 5 mg PO DAILY 03/05/20 Sertraline [Zoloft*] 50 mg PO DAILY 03/05/20 Trazodone HCl 150 mg PO BEDTIME PRN PRN 03/05/20 buPROPion HCL [Bupropion Xl] 300 mg PO DAILY 03/05/20 Pantoprazole Sodium [Protonix] 1 tab PO DAILY 30 Days #30 tablet. 03/06/20 Gabapentin 1 tab PO BID 07/22/20 Metoprolol Succinate 25 mg PO DAILY 07/22/20 Pravastatin Sodium 1 tab PO DAILY 07/22/20 Doxazosin [Cardura*] 4 mg PO BEDTIME 09/30/20 Folic Acid/Vit B Complex and C [Dialyvite 800 Chewable Wafer] 1 tab PO DAILY 09/30/20 Furosemide [Lasix*] 40 mg PO DAILY 09/30/20 Metoclopramide [Reglan] 5 ml PO TID 30 Days #45 ucup 10/01/20 Ondansetron [Zofran] 4 mg PO Q8H PRN 14 Days #30 tab 10/01/20 - Past Medical/Surgical History Diabetic: Yes -: DM Type 2 -: Seizure disorder -: Chronic renal disease -: DM Gastroparesis -: DM Neuropathy -: Insomnia -: Obesity -: JAYLA -: Hypertension -: Post traumatic stress disorder -: Schizoaffective disorder -: CHF, diastolic -: I/D of the right elbow -: 2 previous C-sections -: Tubal ligation Psychosocial/ Personal History: She is , she has 2 children, she does not work. - Family History Mother -: Hypertension, Diabetes, Cancer, Other (see notes) Notes: hypothyroid, asthma, breast cancer Father -: Diabetes, Cancer Notes: - stomach/ lung/ prostate cancer, diabetes - Social History Smoking Status: Never smoker Alcohol use: No CD- Drugs: No Caffeine use: Yes Place of Residence: Home Review of Systems General: Unremarkable Eyes: Unremarkable ENT: Unremarkable Respiratory: Cough, As per HPI Cardiovascular: Unremarkable Gastrointestinal: Nausea, Vomiting, Abdominal Pain, Diarrhea, As per HPI Genitourinary: Unremarkable Musculoskeletal: Unremarkable Integumentary: Unremarkable Neurological: Unremarkable Lymphatics: Unremarkable Physical Examination - Physical Exam General: Alert, In no apparent distress, Oriented x3, Cooperative HEENT: Atraumatic, Normocephalic, PERRLA, Mucous membr. moist/pink, EOMI, Sclerae nonicteric Neck: Supple, 2+ carotid pulse no bruit, JVD not distended, No Thyromegaly, No LAD Respiratory: Clear to auscultation bilaterally, Normal air movement Cardiovascular: No edema, Normal pulses, Regular rate/rhythm, Normal S1 S2, No gallops, No rubs, No murmurs Capillary refill: <2 Seconds Gastrointestinal: Normal bowel sounds, Soft and benign, Non-distended, No ascites, No masses, No rebound, No guarding, Tenderness Musculoskeletal: No clubbing, No swelling, No contractures, No erythema, No tenderness, No warmth Integumentary: No rashes, No breakdown, No significant lesion, No tenderness/swelling, No erythema, No warmth, No cyanosis Neurological: Normal speech, Normal strength at 5/5 x4 extr, Normal tone, Sensation intact, Cranial nerves 3-12 intact, Normal affect Lymphatics: No axilla or inguinal lymphadenopathy Urinary: Dialysis catheter - Studies Laboratory Data (last 24 hrs) 10/27/20 23:35: WBC 2.50 L D, Hgb 8.8 L, Hct 27.6 L, Plt Count 91 L* 10/27/20 23:35: Sodium 137, Potassium 5.4 H, BUN 49 H D, Creatinine 7.73 H* D, Glucose 64 L, Total Bilirubin 0.5, AST 63 H, ALT 33, Alkaline Phosphatase 57, Lipase 30 L Assessment and Plan - Problems (Diagnosis) (1) Abdominal pain Onset Date: 08/03/16 Current Visit: No Status: Acute Qualifiers: Abdominal location: generalized Qualified Code(s): R10.84 - Generalized abdominal pain (2) Anemia in chronic kidney disease Onset Date: 08/09/17 Current Visit: No Status: Chronic Qualifiers: Chronic kidney disease stage: on chronic dialysis Qualified Code(s): N18.6 - End stage renal disease; D63.1 - Anemia in chronic kidney disease; Z99.2 - Dependence on renal dialysis (3) Chronic kidney disease, stage 5, kidney failure Onset Date: 08/09/17 Current Visit: No Status: Chronic (4) Gastritis Current Visit: No Status: Chronic (5) Intractable vomiting Onset Date: 10/19/16 Current Visit: No Status: Acute Qualifiers: Vomiting type: unspecified Nausea presence: with nausea Qualified Code(s): R11.2 - Nausea with vomiting, unspecified (6) Diabetes mellitus Onset Date: 10/19/16 Current Visit: No Status: Chronic Qualifiers: Diabetes mellitus type: type 2 Diabetes mellitus salvage determiner insulin use: without salvage determiner use Diabetes mellitus complication status: with kidney complications Diabetes mellitus complication detail: with chronic kidney disease Chronic kidney disease stage: on chronic dialysis Qualified Code(s): E11.22 - Type 2 diabetes mellitus with diabetic chronic kidney disease; N18.6 - End stage renal disease; Z99.2 - Dependence on renal dialysis (7) Diabetic gastroparesis Onset Date: 10/19/16 Current Visit: No Status: Chronic (8) Hypertension Onset Date: 10/19/16 Current Visit: No Status: Chronic Qualifiers: Hypertension type: essential hypertension (9) Schizoaffective disorder Onset Date: 06/08/16 Current Visit: No Status: Chronic Qualifiers: Schizoaffective disorder type: unspecified - Plan nephrology consulted, continue MWF dialysis schedule kayelaxate given for hyperkalemia, will recheck K+ with AM labs hypoglycemica, given amp of glucose, will do BG checks q6hr anemia stable from last admissions, will obtain type + screen in case transfusion is needed IV protonix, IV reglan, sucralfate for gastroparesis and N/V BP control with hydralazine PRN will obtain and continue home medications SCDs for DVT ppx Discharge Plan: Home Plan to discharge in: 24 Hours - Advance Directives Does patient have a Living Will: Yes Does patient have a Durable POA for Healthcare: Yes - Code Status/Comfort Care Code Status Assessed: Yes (full code ) Critical Care: No Time Spent Managing Pts Care (In Minutes): 70
[2020-10-28] MEDS ORDERED: SOD POLYSTYREN SUL 15 GM/60 ML UCUP ONE (02:31)
[2020-10-28] MEDS ORDERED: D50W 25 GM/50 ML SYRINGE IV ONE (02:31)
[2020-10-28] MEDS ORDERED: HYDRALAZINE HCL 20 MG/ML VIAL IV PRN (03:59)
[2020-10-28] MEDS ORDERED: SODIUM CHLORIDE 0.9% 10ML INJ IV PRN (03:59)
[2020-10-28] MEDS ORDERED: ACETAMINOPHEN 500 MG TAB PO PRN (03:59)
[2020-10-28] MEDS ORDERED: GLUCAGON 1 MG/VIAL IM PRN (03:59)
[2020-10-28] MEDS ORDERED: ONDANSETRON 4 MG/2 ML VIAL IV PRN (03:59)
[2020-10-28] MEDS ORDERED: HYDROMORPHONE HCL 0.5 MG/0.5 ML INJ IV PRN (03:59)
[2020-10-28] MEDS ORDERED: D50W 25 GM/50 ML SYRINGE IV PRN (03:59)
[2020-10-28] MEDS ORDERED: METOCLOPRAMIDE 10 MG/2mL INJ IV PRN (03:59)
[2020-10-28] MEDS ORDERED: GLUCAGON 1 MG/VIAL ONE (04:33)
[2020-10-28] MEDS ORDERED: PROMETHAZINE INJ 25 MG/ML AMP ONE (04:33)
[2020-10-28 04:34] VITALS: BMI 29.4
[2020-10-28 07:09] LABS: Bilirubin Total 0.5 mg/dL (0.2-1.0); Magnesium 2.1 mg/dL (1.8-2.4); Phosphorus 8.4 mg/dL (2.5-4.9); Potassium 5.2 mmol/L (3.5-5.1); Protein, Total 6.2 g/dL (6.4-8.2)
[2020-10-28] MEDS: INSULIN -REGULAR HUMAN 50 UNIT/0.5 ML ML SQ SCH ×3 (07:30→15:51)
[2020-10-28 07:37] VITALS: O2SAT 100
[2020-10-28] MEDS ORDERED: SUCRALFATE 1 GM TABLET ONE ×3 (07:40→15:31)
[2020-10-28] MEDS: SUCRALFATE 1 GM TABLET PO SCH ×3 (07:53→16:11)
[2020-10-28 08:15] LABS: Urine Appearance CLEAR (Clear); Urine Bilirubin NEGATIVE (Negataive); Urine Blood 3+ (Negative); Urine Color YELLOW (Yellow); Urine Glucose NEGATIVE (Negative); Urine Protein 3+ (Negative); Urine Specific Gravity 1.015 (1.005-1.030); Urine Urobilinogen 0.2 mg/dL (0.2-1.0); Urine pH 7.5 (5.0-7.0)
[2020-10-28 08:19] LABS: Urine Microscopic Reflex ORDER UMIC
[2020-10-28 08:31] LABS: Urine Bacteria NONE SEEN /HPF (<20); Urine RBC >50 /HPF (NONE SEEN)
[2020-10-28] MEDS ORDERED: METOPROLOL XL 50 MG TAB PO SCH (09:00)
[2020-10-28] MEDS ORDERED: PANTOPRAZOLE 40 MG INJ IVP SCH (09:00)
[2020-10-28] MEDS ORDERED: Folic Acid/Vit B Complex And C [Dialyvite 800 Chewable Wafer] 800 MCG T PO SCH (09:00)
[2020-10-28] MEDS ORDERED: DIVALPROEX ER 250 MG TAB PO SCH (09:00)
[2020-10-28] MEDS ORDERED: MULTIVITAMINS,THERAPEUT 1 TAB PO SCH (09:00)
[2020-10-28] MEDS ORDERED: METOPROLOL XL 50 MG TAB PO ONE (09:01)
[2020-10-28] MEDS ORDERED: DIVALPROEX DR 250 MG TAB PO ONE (09:07)
[2020-10-28] MEDS: METOCLOPRAMIDE 10MG/10ML UCUP PO SCH ×2 (09:43→14:41)
[2020-10-28] MEDS ORDERED: CALCIUM ACETATE 667 MG TAB PO SCH (10:00)
[2020-10-28] MEDS ORDERED: HYDRALAZINE HCL 25 MG TABLET PO ONE ×2 (10:26→17:00)
[2020-10-28] MEDS ORDERED: EPOETIN 4,000 UNIT/ML VIAL SQ ONE (11:00)
[2020-10-28] MEDS: CALCIUM ACETATE 667 MG TAB PO SCH ×2 (11:06→16:11)
[2020-10-28 15:08] VITALS: TEMP 97.2
--- NOTE | 2020-10-28 15:21 | CON ---
Date of Consultation: 10/28/2020 History Of Present Illness: The patient is seen in Emergency Room Hold25. The patient presented to the hospital with nausea, vomiting. The patient has had nausea, vomiting before, also with history o f gastroparesis and diabetes. She is a dialysis patient and gets dialyzed on Wednesday, Wednesday, ay with right arm AV fistula with needles of 15-gauge. She has a history of high blood pressure. Stefani carcamo denies any current issues. She just had a bowel movement few minutes back and she feels a whole lo t better. She denies any shortness of breath. She denies any cough currently. She is afebrile. Stefani carcamo feels like she is back to baseline. She is not having any nausea anymore. She is tolerating some p.o. intake and is wanting to progress her diet. I have discussed the case also with Dr. Bautista. e patient is currently in the emergency room HOLD. Objective: Vital Signs: Her vitals are stable. Her blood pressure last was 163/54, pulse is 65 and stable, afebrile. Lungs: Clear to auscultation. Abdomen: Soft. Extremities: Do not reveal any edema. AV fistula in the right arm has good thrill and bruit. I have been consulted for dialysis orders and for dialysis planning. The patient's medications revie wed. Most of the medications are being held currently. She is on calcium acetate. She is on Depako te. She is on hydralazine. She is on insulin, metoclopramide, and Zofran. She has a history of gas troparesis, diabetes, and hypertension. Allergies: TO MULTIPLE MEDICATIONS INCLUDING AMBIEN, CODEINE, AND FLUPHENAZINE. Laboratory Data: Reviewed. The patient's labs show WBC 2.5, hemoglobin 8.8, hematocrit 27.6, platel et count of 91. Chemistry shows sodium 139, potassium 5.2, bicarb 26, BUN 53, creatinine 8.23, gluco se 114, calcium 7.7, albumin level is 3.0, phosphorus 8.4. Assessment And Plan: End-stage renal disease. The patient will get dialysis today. Discussed with dialysis nurse. She should be down within the next hour or so to do the dialysis. Dialysis orders h ave been placed. Use 15-gauge needles. We will dialyze with 400 plug flow, 800 dialysis flow. We w ill try to take about 2.5 L off. The patient is looking clinically well right now. Blood pressure i s reasonable at 164 predialysis situation. We will hold off on the hydralazine p.o. that we were merced nning to give the patient if the dialysis nurse was not available for a few hours, but since dialysis nurse is able to dialyze the patient next hour or so, we will hold off on hydralazine. We will go a head and attempt to take 2.5 L off. Given her low hemoglobin at about 8.8, we will also judiciously give a small dose of Retacrit at 4000 units. Once dialysis completed and the patient's condition con tinues to be stable, may be discharged home with possibility of dialysis on Wednesday. In COVID shif t outpatient if that cannot be arranged, then the patient will likely need to come to the emergency r oom to get further dialysis in a setting of safe COVID positive status which the patient has currentl y. The patient has been explained this. She is agreeable to the plan. Also explained to her about precautions at home, monitoring her O2 sats, and coming back to the emergency room with any change in condition. /JOSEFINA Voice ID: [id number] Report ID: [id number]
--- NOTE | 2020-10-28 17:11 | P.DS ---
Admission Date: 10/28/20 Discharge Date: 10/28/20 Disposition: [place] HOME/HOME HEALTH CARE Discharge Condition: GOOD Reason for Admission: intractable nausea and vomiting - Problems (1) Intractable nausea and vomiting Status: Acute (2) End stage renal disease on dialysis Status: Acute (3) Pneumonia due to COVID-19 virus Status: Acute (4) Diabetes mellitus type II, uncontrolled Onset Date: 02/09/17 Status: Chronic (5) Diabetic gastroparesis Onset Date: 10/19/16 Status: Chronic Brief History of Present Illness: 40 year old woman with a past medical history DM, HTN, gastroparesis, and ESRD on HD MWF presented to the ED with a complaint of intractable nausea, vomiting, diffuse abdominal pain, and diarrhea. She has been unable to eat or drink. She reported no relief with oral antiemetics. She was recently hospitalized for similar symptoms. She is supposed to follow up with her GI doctor for upper GI study. She tested positive for COVID 19 in the ED, Not hypoxemic. She was only coughing occasionally. Hgb 8.8. Plt 91. K 5.4. BUN 49. Cr 7.73. GFR 6. Glu 64 in the ED. Patient hospitalized for further management. Hospital Course: Patient started on supportive measures with IV antiemetics. She was seen by nephrology and she underwent hemodialysis. She was a place on IV Reglan for gastroparesis. Patient was later able to tolerate liquid diet and soft diet. She denied any abdominal pain. She was not hypoxic and was saturating up to 100% on room air. She had a CT abdomen and pelvis done 2 days prior, which comm ented on infiltrate in the right lung base. Patient had been set up for hemodialysis designed for COVID positive patients and her next hemodialysis is on 10/31. Patient's symptoms have improved, she has tolerated oral diet and deemed stable for discharge. Vital Signs/Physical Exam: Temp Pulse Resp BP Pulse Ox 97.2 F 61 18 172/72 H 100 10/28/20 15:06 10/28/20 15:06 10/28/20 15:06 10/28/20 15:06 10/28/20 15:06 General: Alert, In no apparent distress HEENT: Mucous membr. moist/pink Neck: JVD not distended Respiratory: Other (Nonlabored breathing.) Cardiovascular: No edema, Regular rate/rhythm Gastrointestinal: Normal bowel sounds, Soft and benign, Non-distended, No tenderness Musculoskeletal: No swelling Integumentary: No rashes Neurological: Normal strength at 5/5 x4 extr Laboratory Data at Discharge: WBC 2.50 K/uL (4.3-10.9) L D 10/27/20 23:35 Hgb 8.8 g/dL (12.0-15.0) L 10/27/20 23:35 Hct 27.6 % (36.0-45.0) L 10/27/20 23:35 Plt Count 91 K/uL (152-406) L* 10/27/20 23:35 Sodium 139 mmol/L (136-145) 10/28/20 06:34 Potassium 5.2 mmol/L (3.5-5.1) H 10/28/20 06:34 BUN 53 mg/dL (7-18) H 10/28/20 06:34 Creatinine 8.23 mg/dL (0.55-1.3) H* 10/28/20 06:34 Glucose 114 mg/dL (74-106) H 10/28/20 06:34 Phosphorus 8.4 mg/dL (2.5-4.9) H 10/28/20 06:34 Magnesium 2.1 mg/dL (1.8-2.4) 10/28/20 06:34 Total Bilirubin 0.5 mg/dL (0.2-1.0) 10/28/20 06:34 AST 71 U/L (15-37) H 10/28/20 06:34 ALT 37 U/L (12-78) 10/28/20 06:34 Alkaline Phosphatase 47 U/L (45-117) 10/28/20 06:34 Lipase 30 U/L (73-393) L 10/27/20 23:35 Home Medications: Calcium Acetate [Phoslo*] 2 cap PO TIDWM 03/05/20 Calcium Acetate [Phoslo*] 667 mg PO SNACKS 03/05/20 Divalproex Sodium [Divalproex Sodium ER] 500 mg PO BID 03/05/20 Linagliptin [Tradjenta] 5 mg PO DAILY 03/05/20 Sertraline [Zoloft*] 50 mg PO DAILY 03/05/20 Trazodone HCl 150 mg PO BEDTIME PRN PRN 03/05/20 Pantoprazole Sodium [Protonix] 1 tab PO DAILY 30 Days #30 tablet. 03/06/20 Gabapentin 1 tab PO BID 07/22/20 Metoprolol Succinate 25 mg PO DAILY 07/22/20 Pravastatin Sodium 1 tab PO DAILY 07/22/20 Doxazosin [Cardura*] 4 mg PO BEDTIME 09/30/20 Folic Acid/Vit B Complex and C [Dialyvite 800 Chewable Wafer] 1 tab PO DAILY 09/30/20 Furosemide [Lasix*] 40 mg PO BID 09/30/20 Metoclopramide [Reglan*] 5 ml PO TID 30 Days #45 ucup 10/01/20 Ondansetron [Zofran (Odt)*] 4 mg PO Q8H PRN 14 Days #30 tab 10/01/20 Ascorbate Calcium [Vitamin C] 500 mg PO TID #90 tablet 10/28/20 Sucralfate [Carafate*] 1 gm PO ACHS #90 tab 10/28/20 Zinc Sulfate [Zinc Sulfate*] 220 mg PO DAILY #30 cap 10/28/20 predniSONE [Deltasone] 20 mg PO BID #21 tab 10/28/20 New Medications: Sucralfate [Carafate*] 1 gm PO ACHS #90 tab predniSONE [Deltasone] 20 mg PO BID #21 tab Ascorbate Calcium [Vitamin C] 500 mg PO TID #90 tablet Zinc Sulfate [Zinc Sulfate*] 220 mg PO DAILY #30 cap Physician Discharge Instructions: Next Dialysis on -10/31/2020. Please return to the emergency department should you become more short of breath at rest. Diet: Renal Activity: Ad monique Followup: Jose Miguel Morin DO [Primary Care Provider] - 1-2 Weeks
[2020-10-28 17:24] VITALS: BP 155/70
[2020-10-28] MEDS ORDERED: DOXAZOSIN 4 MG TAB PO SCH (21:00)
== END 2020-10-28 18:25 | disposition home health service (06) ==
LOC: ER 19:14 → ERHOLD 10-28 02:16 → INTOOBSV 10-28 02:16 → ERHOLD 10-28 04:33
PROVIDERS: ADMIT Internal Medicine; ATTEND Internal Medicine
DX: U07.1 COVID-19 (principal); J12.82 Pneumonia due to coronavirus disease 2019; R11.2 Nausea with vomiting, unspecified; E11.65 Type 2 diabetes mellitus with hyperglycemia; E11.22 Type 2 diabetes mellitus with diabetic chronic kidney disease; N18.6 End stage renal disease; Z99.2 Dependence on renal dialysis; I13.2 Hypertensive heart and chronic kidney disease with heart failure and with stage 5 chronic kidney disease, or end stage renal disease; E11.43 Type 2 diabetes mellitus with diabetic autonomic (poly)neuropathy; I50.30 Unspecified diastolic (congestive) heart failure; K31.84 Gastroparesis; G47.00 Insomnia, unspecified; E66.9 Obesity, unspecified; G40.909 Epilepsy, unspecified, not intractable, without status epilepticus; G47.33 Obstructive sleep apnea (adult) (pediatric); F43.10 Post-traumatic stress disorder, unspecified; F25.9 Schizoaffective disorder, unspecified; D63.1 Anemia in chronic kidney disease; K29.50 Unspecified chronic gastritis without bleeding; Z68.29 Body mass index [BMI] 29.0-29.9, adult
CPT/HCPCS: 87088; 85025 ×2; 87086; 80048 ×2; 36415 ×2; 86900; 83735; 86850; 84100; 86901; 82947 ×7; 80076 ×2; 83690 ×2; 80053; 74176; 94760; 96375 ×2; 96372; 96374 ×2; 99284; 99285; U0003; J1610; J2550 ×2; J1170; Q5105; J7050; J2405; G0257; 81003; 81015; 87077; 87186; C9113; G0378

== ENCOUNTER 2020-10-30 22:00 | Emergency (ER) | payer OTHER ==
--- OUTSIDE RECORDS SUMMARY | 2020-10-30 22:15 | XMS REPORT | Continuity of Care Document ---
:1980 Author Organization [facility] t Address [address] [place] [address] Care Team Providers Name Role Phone Sharpless Primary Care Physician Marshall BURNS, K.H. Attending Clinician Carlos BURNS Attending Clinician Manuel Sanchez DO [...] NEW 00:00: Vin EVALUATION 00 Active 07/12/2018 [facility] Liver Liver Disease Active [facility] failure, failure, 7[facility] acute acute 00:00: Medical 00 [place] SANJUANA (acute SANJUANA (acute Disease Active [facility] kidney kidney 7-16 [facility] injury) injury) 00:00: Medical 00 [place] CKD CKD Disease Active [facility] (chronic (chronic 7-16 [facility] - kidney kidney 00:00: Medical disease) disease) 00 Center Acute Acute Disease Active [facility] encephalop encephalop 7-16 Pati kes - athy athy 00:00: Medical 00 [place] Ulcer of Ulcer of Disease [facility] toe [facility] of [facility] - left foot left foot 00:00: Medi tawnya 00 [place] Peripheral Peripheral Disease Active [facility] neuropathy neuropathy 7-16 Pati kes - 00:00: Medical 00 [place] Hyperglyce Hyperglyce Disease Active [facility]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 00:00: Medical diabetes diabetes 00 Center mellitus mellitus Gastropare Gastropare Disease Active [facility] sis due to sis due to 716 Pati kes - DM DM 00:00: Medical 00 [place] Cyclic Cyclic Disease Active [facility] vomiting vomiting -16 [facility] - syndrome syndrome 00:00: Medica l 00 [place] Anxiety Anxiety Disease Active [facility] 7[facility]16 [facility] - 00:[facility]: [facility] 00 [place] Bipolar Bipolar Disease Active [facility] disorder disorder 7-16 [facility] - 00:[facility]: Medical 00 [place] Hypertensi Hypertensi Disease Active [facility] ve ve 7-16 [facility] - emergency emergency 00:00: [facility] tawnya 00 Center CONGESTION Diagnosis Active 2016-07-24 Memoria AMD 2- 01:49:00 l DIARRHEA 00:00: [place] CONGESTION 00 AMD DIARRHEA Active 07/23/2016 [facility] ACUTE RESP Diagnosis Active 2016-09-09 Memoria FAILURE 2- 09:11:00 l ACUTE 00:00: [place] RESP 00 FAILURE Active 07/23/2016 [facility] SOB/SWELLI Diagnosis Active 2015-062016-06-10 Memoria NG 08-11 15:48:00 l 00:00: Vin SOB/SWELLI 00 NG Active 6 [facility] CHF/RENAL Diagnosis Active 2015-062016-06-24 Memoria DISEASE 2- 15:35:00 l 00:00: [place] CHF/RENAL 00 DISEASE Active 06/10/2016 [facility] ABDOMINAL Diagnosis Active 2014-06-26 Memoria PAIN, 1- 05:44:00 l SEIZURES 00:00: [place] ABDOMINAL 00 PAIN, SEIZURES Active 06/26/2013 [facility] ABD PAIN Diagnosis Active 2012-062013-04-19 M emoria 0-25 21:51:00 l ABD PAIN 19:00: Jake n 00 Active 04/14/2013 [facility] GASTROPERI Diagnosis Active 2012-09-13 Memoria SIS - 15:17:00 l 00:00: [place] GASTROPERI 00 SIS Active 08/02/2012 [facility] ABDOMINAL Diagnosis Active 2012-03-14 Memoria PAIN 03-14 16:56:00 l 14:00: [place] ABDOMINAL 00 PAIN Active 03/14/2012 [facility] NAUSEA, Diagnosis Active 2012-03-14 Me moria VOMITING 03-14 13:25:00 l NAUSEA, 08:00: Vin VOMITING 00 Active 03/14/2012 [facility] VOMITTING Diagnosis Active 2011-11-28 Memoria 11-27 16:28:00 l 00:00: [place] VOMITTING 00 Active 11/28/2011 [facility] N/V Diagnosis Active 2011-12-08 Mem oria INABILITY 11-27 11:14:00 l TO N/V 00:00: [place] TOLERATE INABILITY 00 PO TO TOLERATE PO Active 2 [facility] VOMITTING, Diagnosis Active 2011-09-18 Memoria HIGH BLOOD 09-17 09:45:00 l SUGAR 00:00: [place] VOMITTING, 00 HIGH BLOOD SUGAR Active 09/18/2011 [facility] MRSA Problem Active 2012-03-16 Memor ia 08-31 09:11:30 l MRSA 00:00: [place] 00 Active 09/01/2011 Problem 03/16/2012 - Elbow [id number] emily added by Discern Expert. [facility] Methicilli Problem Active 2016-08-02 M emoria n 3-13 02:46:22 l resistant 00:00: [place] Staphyloco Methicilli 00 ccus n aureus resistant (organism) Staphyloco ccus aureus (organism) Active 09/01/2011 Problem 08/02/2016 09/01/11 - Elbow woundProbl em added by Discern Expert. [facility] ELBOW Diagnosis Active 2011-09-10 Mem oria ABSCESS/HY - 16:26:00 l PERGLYCEMI ELBOW 00:00: Nidia nn A ABSCESS/HY 00 PERGLYCEMI A Active 08/31/2011 [facility] VOMITING, Diagnosis Active 2011-09-01 Memoria BLOOD 08-30 03:19:00 l SUGAR 00:00: Vin READINGS VOMITING, 00 HIGH BLOOD SUGAR READINGS HIGH Active 08/31/2011 [facility] Hypokalemi Problem Active 2012-03-16 M emoria a 08-22 09:11:30 l 00:00: Vin Hypokalemi 00 a Active 08/23/2011 Problem 03/16/2012 [facility] VOMITING Diagnosis Active 2011-08-19 M emoria 16:21:00 l VOMITING 00:00: Jake n 00 Active 08/19/2011 [facility] DKA Diagnosis Active 2011-08-24 Mem oria 11:27:00 l DKA 00:00: [place] 00 Active 08/19/2011 [facility] Final: Problem 2016-08-02 Memor ia Acute 02:46:22 l respirator Final: Herm naeem y failure, Acute unspecifie respirator d whether y failure, with unspecifie hypoxia or d whether hypercapni with a hypoxia or hypercapni a 08/02/2016 [facility] Hypoglycem Problem Inactiv 2013-04-22 Memoria ia e 04:46:33 l (disorder) Jake n Hypoglycem ia (disorder) Inactive Problem 04/22/2013 [facility] Hypoglycem Problem Inactiv 2012-03-16 Memoria ia e 09:11:30 l [place] Hypoglycem ia Inactive Problem 03/16/2012 [facility] Diabetes Problem Resolve 2016-08-02 Me moria mellitus d 02:46:22 l (disorder) Diabetes He rmann mellitus (disorder) Resolved Problem 08/02/2016 [facility] Gastropare Problem Resolve 2016-08-02 Memoria sis d 02:46:22 l (disorder) Jake n Gastropare sis (disorder) Resolved Problem 08/02/2016 [facility] Hypertensi Problem Resolve 2016-08-02 Memoria ve d 02:46:22 l disorder, Vin systemic Hypertensi arterial ve (disorder) disorder, systemic arterial (disorder) Resolved Problem 08/02/2016 [facility] Psychiatri Problem Resolve 2016-08-02 Memoria c d 02:46:22 l behavioral Jake n disability Psychiatri (finding) c behavioral disability (finding) Resolved Problem 08/02/2016 [facility] Seizure Problem Resolve 2016-08-02 Mem oria (finding) d 02:46:22 l Seizure Vin (finding) Resolved Problem 08/02/2016 [facility] Hypomagnes Problem Active 2013-04-22 M emoria emia 04:46:33 l [place] Hypomagnes emia Active Problem 04/22/2013 [facility] Hypertensi Problem Active 2012-03-16 M emoria on 09:11:30 l Vin Hypertensi on Active Problem 2 [facility] Nausea and Problem Active 2012-03-16 M emoria vomiting 09:11:30 l Nausea Vin and vomiting Active Problem 03/16/2012 [facility] DMI Diagnosis Active 2011-08-24 Mem oria KETOACD 11:27:00 l UNCONTROLD DMI Jake n KETOACD UNCONTROLD Active [facility] OTHER Diagnosis Active 2011-09-10 Mem oria GENERAL 16:26:00 l SYMPTOMS OTHER Vin GENERAL SYMPTOMS Active [facility] HEART Diagnosis Active 2016-06-24 Mem oria FAILURE, 15:35:00 l UNSPECIFIE HEART Nidia nn D FAILURE, UNSPECIFIE D Active [facility] ACUTE Diagnosis Active 2016-09-09 Mem oria RESPIRATOR 09:11:00 l Y FAILURE, ACUTE Nidia nn UNSP W RESPIRATOR HYPOXI Y FAILURE, UNSP W HYPOXI Active [facility] Nausea and Problem Resolve 2012-2016-08-02 2016-08-02 Memoria vomiting d 6-10 02:46:22 02:46:22 l (disorder) Nausea 00:00: Herm naeem and 00 vomiting (disorder) Resolved 11/29/2011 Problem 08/02/2016 [facility] Hypokalemi Problem Resolve 2016-08-02 2016-08-02 Memoria a d 3-04 02:46:22 02:46:22 l (disorder) 00:00: Jake n Hypokalemi 00 a (disorder) Resolved 08/23/2011 Problem 08/02/2016 [facility] Disorder Problem Resolve 2016-08-02 2016-08-02 Memoria of d 3- 02:46:22 02:46:22 l magnesium Disorder 00:00: Her braden metabolism of 00 (disorder) magnesium metabolism (disorder) Resolved 08/23/2011 Problem 08/02/2016 [facility] Hyperglyce Problem Resolve 2016-08-02 2016-08-02 Memoria maryam d 3- 02:46:22 02:46:22 l (disorder) 00:00: Jake n Hyperglyce 00 maryam (disorder) Resolved 08/20/2011 Problem 08/02/2016 [facility] Ketoacidos Problem Resolve 2016-08-02 2016-08-02 Memoria is in d 2- 02:46:22 02:46:22 l diabetes 00:00: Vin mellitus Ketoacidos 00 (disorder) is in diabetes mellitus (disorder) Resolved 08/19/2011 Problem 08/02/2016 [facility] DKA Problem Resolve 2013-04-22 2013-04-22 Memoria (diabetic d 2 04:46:33 04:46:33 l ketoacidos DKA 00:00: Jake n es) (diabetic 00 ketoacidos es) Resolved 08/19/2011 Problem 04/22/2013 [facility] History of Past Illness Condition Condition Condition Status Onset Resolution Last Treating Co mments Source Name Details Category Date Date Treatment Clinician Date Discharge Problem 2014-06-28 2014-06-28 Memoria Diagnosis: 1- 16:34:37 16:34:37 l Gastropare 06:00: Jake gonzalez sis Discharge 00 Diagnosis: Gastropare sis 06/26/2014 06/28/2014 [facility] Hyperglyce Problem Inactiv 2011-2012-03-16 2012-03-16 Memoria maryam e 3- 09:11:30 09:11:30 l 00:00: Vin Hyperglyce 00 maryam Inactive 08/20/2011 Problem 03/16/2012 [facility] Allergies, Adverse Reactions, Alerts Allergy Allergy Status Severity Reaction(s) Onset Inactive Treating Comm ents Source Name Type Date Date Clinician Zolpidem Drug Active Other (See confusion [facility] Allergy Comments) [facility] Lisinopr Drug Active Other (See Unable to [facility] il Allergy Comments) 01-03 [facility] - [facility]: Medical 00 [place] Nitrofur Drug Active Anaphylaxis Liver [facility] [...] Date Quantity Comments Source Sex Assigned At [facility] Cigarettes smoked 2017-12-17 2017[facility]12[facility]:00 [facility] day) - Reported Cigarette 2017-12-17 2017-12-17 [facility]years 00:00:00 00:00:00 [facility] Alcohol intake 2017-12-17 2017-12-17 [facility] non-drinker of Medical Ce nter alcohol (finding) Tobacco Comment 2017-01-03 2017-01-03 [facility]:00:00 she stopped [address] month ago. History of tobacco 2016-12-[address] [facility] use [facility] Social History 2016-06-11 2016-06-11 [facility] fatou 04:38:12 04:38:12 Smoking Status Start Date Stop Date Source Former smoker 2017-12-17 00:00:00 2017-12-17 00:00:[address] [facility] Medications Ordered Filled Start Stop Current Ordering Indication Dosage Frequency Signature Comments Components Source Medication Medication Date Date Medication? Clinician (SIG) Name Name divalproex 2017- Yes depression 500mg QD Take [address] [facility] [facility] (DEPAKOTE) 7-20 associated mg by Pati kes - 500 MG EC 15:20: with mouth Medical tablet 59 bipolar daily. Center disorder ondansetron 2017-0 Yes 4mg Take 4 mg C [facility] [...] l 59 Center hydrALAZINE 2017-0 Yes 100mg [id number] Take [address] [facility] (APRESOLINE 7-20 [id number] mg by L ukes - ) 100 MG 15:20: 3D mouth 3 Medica l tablet 59 (three) Center times daily. magnesium 2017-0 Yes 400mg QD Take [address] oxide 7-20 mg by [facility] - (MAG-OX) 15:20: mouth Medical 400 mg 59 daily. Center tablet metoclopram 2017-0 Yes 10mg [id number] Take [address] gadiel HCl 7-20 [id number] by mouth 3 [facility] - (REGLAN) 10 [...] tab, PO, l Tablet 15:07: Daily, # [place] 00 30 tab, 0 Refill(s), Pharmacy: 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 Give with food or milk. Hydralazine No Notes: Mendoza janice 2-08 (Same as: l 06:05: Apresoline [place] 00 ) Push over 5 minutes sodium No 1,000 mL, Memori a chloride 2-05 Rate: 125 l 0.9% 1000 18:26: ml/hr, Jake n ml INJ 00 Infuse 1,000 mL over: 8 hr, Route: IV, Dosing Weight 92.273 kg, Total Volume: 1,000, Start date: 07/26/16 12:26:00 FERRYBOAT OPERATOR HELPER, Duration: 30 day, Stop date: 08/25/16 12:25:00 FERRYBOAT OPERATOR HELPER Sodium No 500 mL, Memoria Chloride 2-05 500 ml/hr, l 0.154 13:30: Infuse Vin MEQ/ML 00 Over: 1 Injectable hr, Route: Solution IV, 500, Drug form: INJ, ONCE, Priority: STAT, Dosing Weight 92.273 kg, Start date: 07/26/16 7:30:00 FERRYBOAT OPERATOR HELPER, Duration: 1 doses or times, Stop date: 07/26/16 7:30:00 FERRYBOAT OPERATOR HELPER Insulin No 60 Memoria regular 2-04 units) [...] n 2-04 (Same as: l 03:00: Lipitor) divalproex No Notes: Memor ia sodium 2-04 (Same as: l 03:00: Depakote [place] 00 ER) Once daily dosing; indicated for [...] Weight 92.273, kg, Start date: 07/24/16 9:00:00 FERRYBOAT OPERATOR HELPER, Duration: 30 day, Stop date: 08/22/16 9:00:00 FERRYBOAT OPERATOR HELPER 24 HR No Notes: Memoria Divalproex 2-03 [...] 2-03 tab, l release 15:00: Route: PO, Herm naeem 00 Drug form: ERTAB, Daily, Start date: 07/24/16 9:00:00 FERRYBOAT OPERATOR HELPER, Duration: 30 day, Stop date: 08/22/16 9:00:00 FERRYBOAT OPERATOR HELPER Insulin No Notes: Memoria Glargine 2-03 Same as: l 100 UNT/ML 15:00: Lantus) Do H ermann Injectable 00 not hold Solution insulin [Lantus] without contacting prescriber WASTE: F/P - Black; E - Municipal Trash Bin Hydralazine No Notes: Mendoza janice Hydrochlori 2-03 (Same as: l de 100 MG 15:00: Apresoline He rmann Oral Tablet 00 ) May interfere w/enteral feedings Take With Food Ondansetron No Notes: Mendoza janice 2-03 (Same as: l 14:50: Zofran) [place] 00 MEDICATION WASTE Product Size: 4 mg [...] 2-03 Route: IM, l 08:40: Drug form: PDR/INJ, PRN, Dosing Weight 92.273, kg, PRN Blood Glucose Results, Start date: 07/24/16 2:40:00 FERRYBOAT OPERATOR HELPER, Duration: 30 day, Stop date: 08/23/16 2:39:00 FERRYBOAT OPERATOR HELPER Dextrose No 25 gm, 50 Mendoza janice 50% Syringe 2-03 mL, Route: l 08:40: IVP, Drug Form: INJ, Dosing Weight 92.273, kg, PRN, PRN Blood Glucose Results, Start date: 07/24/16 2:40:00 FERRYBOAT OPERATOR HELPER, Duration: 30 day, Stop date: 08/23/16 2:39:00 FERRYBOAT OPERATOR HELPER Docusate No Notes: Memoria 2-03 (Same as: l 07:20: Colace) (Do Not Crush) Ondansetron No Notes: Mendoza janice -03 (Same as: l 07:20: Zofran) MEDICATION WASTE [...] Memori a 0.833 MG/ML 07-24 (Same as: / 04:09: Duoneb) Ipratropium 00 Manson 0.167 MG/ML Inhalant Solution [DuoNeb] Furosemide 2015-06 [...] de 100 MG 16:34: BID, # 60 braden Oral Tablet 00 tab, 0 Refill(s) 200 ACTUAT 2015-06 Yes 2 puff, Mendoza janice Albuterol 2-26 INHALATION l 0.09 16:34: , PRN, PRN [place] MG/ACTUAT 00 as needed Metered for Dose [...] Memoria 2-26 (Same as: l 15:00: Lasix) [place] 00 May cause GI upset. Give with food or milk. Magnesium 2015-06 No Notes: Memori a Oxide 2-24 (Same as: l 13:36: Mag-Ox [place] 00 400) Magnesium oxide 338ji=675w g elemental magnesium Dose=____m g magnesium oxide (___mg elemental magnesium) Magnesium 2015-06 No Notes: Memori a Oxide 2-24 (Same as: l 09:47: Mag-Ox Vin 00 400) Magnesium oxide 197is=364n g elemental magnesium Dose=____m g magnesium oxide (___mg elemental magnesium) 24 HR 2015-06 No Notes: Memoria Nifedipine 2-24 (Same as: l 30 MG 04:33: Adalat CC, Jake n Extended 00 Procardia Release XL) Give Tablet on empty [Procardia] stomach. Take 1 hour before or 2 hours after meal; "Avoid grapefruit and grapefruit juice". Do not crush hydrALAZINE 2015-06 No Notes: Menodza janice 50 mg oral 2-24 (Same as: l tablet 01:08: Apresoline Nidia nn 00 ) May interfere w/enteral feedings Take With Food Wellbutrin 2015-06 No Notes: Memor ia XL 2-24 (Same as: l 00:00: Wellbutrin Vin 00 XL) "Do Not Crush" Norvasc 2015-06 No Notes: Memoria 2-24 (Same as: l 00:00: Norvasc) [place] 00 Insulin 2015-06 No Notes: Memoria Glargine [...] AND 1 l Capsule 15:27: CAP AT 00 BEDTIME, 0 Refill(s) Insulin, 2015-06 No [...] Weight 86.364, kg, Start date: 06/11/16 9:00:00 FERRYBOAT OPERATOR HELPER, Duration: 30 day, Stop date: 07/10/16 9:00:00 FERRYBOAT OPERATOR HELPER Insulin 2015-06 No Notes: Memoria Glargine 2-22 Same as: l 100 UNT/ML 15:00: Lantus) Do H ermann Injectable 00 not hold Solution insulin [Lantus] without contacting prescriber WASTE: F/P - Black; E - Municipal Trash Bin Zoloft 2015-06 No Notes: Memoria 2-22 (Same as: l 15:00: Zoloft) Insulin, 2015-06 No Notes: Memoria Aspart, 2-22 Roll in l Human 12:55: palms of hands gently; Do not shake vigorously . (Same as: NovoLOG) "single patient use only" WASTE: F/P - Black; E - Municipal Trash Bin Stable for 28 days at room temperatur e. Expires in days from ____Date heparin 2015-06 No Notes: Memoria sodium, 2-22 porcine l porcine 06:00: heparin [place] 2500 UNT/ML 00 Injectable Solution Albuterol 2015-06 No Notes: Memori a 0.833 MG/ML 2-22 (Same as: l / 03:00: Duoneb) Ipratropium 00 Manson 0.167 MG/ML Inhalant Solution [DuoNeb] gabapentin 2015-06 No 300 mg, Mendoza janice 300 MG Oral 2-22 Route: PO, l Capsule 03:00: Drug form: Herm naeem CAP, Q12H, Dosing Weight 86.364, kg, (CrCl 30 - 59 ml/min), Start date: 06/10/16 21:00:00 FERRYBOAT OPERATOR HELPER, Duration: 30 day, Stop date: 07/10/16 9:00:00 FERRYBOAT OPERATOR HELPER divalproex 2015-06 No Notes: Memor ia sodium [...] Blood Glucose Results, Start date: 06/10/16 18:50:00 FERRYBOAT OPERATOR HELPER, Duration: 30 day, Stop date: 07/10/16 18:49:00 FERRYBOAT OPERATOR HELPER Glucagon 2015-06 No 1 mg, Memoria 2-22 Route: IM, l 00:50: Drug form: PDR/INJ, PRN, Dosing Weight 86.364, kg, PRN Blood Glucose Results, Start date: 06/10/16 18:50:00 FERRYBOAT OPERATOR HELPER, Duration: 30 day, Stop date: 07/10/16 18:49:00 FERRYBOAT OPERATOR HELPER Hydralazine 2015-06 No Notes: Mendoza janice 2-22 (Same as: l 00:36: Apresoline ) Push over 5 minutes Hydralazine 2015-06 No Notes: Mendoza janice 2- (Same as: l 00:34: Apresoline ) May interfere w/enteral feedings Take With Food metoprolol 2015-06 No Notes: Memor ia extended 08-12 (Same as: l release 00:08: Toprol XL) May split tab, but do not crush. Hydralazine 2015-06 No 10 mg, Mendoza janice 08-12 Route: IV, l 00:06: ONCE, Dosing Weight 86.364, kg, Start date: 06/10/16 18:06:00 FERRYBOAT OPERATOR HELPER, Stop date: 06/10/16 18:06:00 FERRYBOAT OPERATOR HELPER hydrOXYzine 2015-06 No Notes: Mendoza janice pamoate 08-11 (Same as: l 23:00: Vistaril) Furosemide 2015-06 No 60 mg, Memor ia 08-11 Route: l 22:32: IVP, Drug form: INJ, ONCE, Dosing Weight 86.364, kg, Start date: 06/10/16 16:32:00 FERRYBOAT OPERATOR HELPER, Stop date: 06/10/16 16:32:00 FERRYBOAT OPERATOR HELPER Lasix 2015-06 No Notes: Memoria - (Same as: l 17:22: Lasix) MEDICATION WASTE Product Size: 40 mg Product Wasted: _0__ mg Albuterol 2015-06 No Notes: Memori a 0.833 MG/ML 08-11 (Same as: l 17:22: Duoneb) Ipratropium 00 Mans[place] 0.167 MG/ML Inhalant Solution [DuoNeb] Promethazin Yes 25 mg = 1 M emoria e 06-26 supp, OR, l Hydrochlori 14:45: Q6H, Jake gonzalez de 25 MG 00 Nausea & Rectal Vomiting, Suppository # 9 supp, [Phenergan] 0 Refill(s) Ondansetron Yes Special Mem oria 4 MG 06-26 Instructio l Disintegrat 14:25: ns: Jake gonzalez ing Tablet 00 Dissolve [Zofran] tab under tongue Metoclopram Yes 10 mg = 1 M emoria gadiel 10 MG 1-06 tab, PO, l Oral Tablet 14:24: QID, [...] Memori a 1-06 Refill(s) l 11:17: Clonidine 0 Yes 0 Memoria 1-06 Refill(s) l 11:17: [...] Rate: 125 l 0.9% IV 04:10: ml/hr, [place] 1,000 mL 00 Infuse over: 8 hr, [...] Marx Rate: 500 l 0.9% 23:45: ml/hr, [place] (Bolus) IV 00 Infuse 500 mL over: [...] Stop date: 03/14/12 17:19:00 Sodium 2011-0 No Yordan Murillo 500 mL, Me moria Chloride - Marx Rate: l 0.9% 22:19: 1,000 [place] (Bolus) IV 00 ml/hr, 500 mL Infuse [...] insulin No Blake 10 unit, Mem oria isophane-ALARM INSTALLER 6-11 Deangelo 0.1 mL, l H 02:00: Route: [place] SUB-Q, Drug form: INJ, Bedtime, Start date: 11/29/11 21:00:00, Duration: 30 day, Stop date: 12/28/11 21:00:00 Insulin No Blake 8 unit, Mendoza janice regular 6-11 Deangelo 0.08 mL, l 02:00: Brisa Route: Vin 00 SUB-Q, Drug form: [...] 6-10 Omidvar Route: l 21:33: IVP, ONCE, [place] 00 Start date: 11/29/11 16:33:00, Stop date: [...] 2011-0 No Blake 14 unit, Mem oria isophane-ALARM INSTALLER 6-10 Deangelo 0.14 mL, l H 14:00: Route: SUB-Q, Drug form: INJ, Daily, Start date: [...] Deangelo tab, l 14:00: Brisa Route: PO, braden 00 Drug form: TAB, Daily, Start date: 11/29/11 9:00:00, Duration: 30 day, Stop date: 12/28/11 9:00:00 benztropine 2011-0 No Blake 1 mg, 1 Memoria 6-10 Deangelo tab, l 14:00: Brisa Route: PO, Her braden Drug form: TAB, BID, Start date: 11/29/11 9:00:00, Duration: 30 day, Stop date: 12/28/11 17:00:00 amLODipine 2011-0 No Blake 5 mg, 1 M emoria 6-10 Deangelo tab, l 14:00: Route: PO, Her braden Drug form: TAB, Daily, Start date: 11/29/11 9:00:00, Duration: 30 day, Stop date: 12/28/11 9:00:00 insulin 2011-0 No Blake 10 unit, Mem oria aspart 6-10 Deangelo 0.1 mL, l 06:30: Route: [place] 00 SUB-Q, Drug form: SOLN, TID-Before Meals, PRN Blood Glucose Results, Start date: 11/29/11 1:30:00, Duration: 30 day, Stop date: 12/29/11 1:29:00 Dextrose 2011-0 No Blake 25 gm, 50 M emoria 50% Syringe 6-10 Deangelo mL, Route: l 06:30: IVP, Drug Herm naeem 00 Form: INJ, PRN, PRN Blood Glucose Results, Start date: 11/29/11 1:30:00, Duration: 30 day, Stop date: 12/29/11 1:29:00 glucagon 2011-0 No Blake 1 mg, Memor ia 6-10 Deangelo Route: IM, l 06:30: Drug form: Her braden 00 PDR/INJ, PRN, PRN Blood Glucose Results, Start date: 11/29/11 1:30:00, Duration: 30 day, Stop date: 12/29/11 1:29:00 normal 2011-0 No Blake 1,000 mL, Mem oria saline 0.9% 6-10 Deangelo Rate: 200 l IV 1,000 mL 06:29: Brisa ml/hr, [place] 00 Infuse over: 5 hr, Route: IV, Dosing Weight 57.273 kg, Total Volume: 1,000, Start date: 11/29/11 1:29:00, Duration: 30 day, Stop date: 12/29/11 1:28:00 Saline 2011- No Blake 5 ml, Memoria Flush 0.9% [...] 30 day, Stop date: 12/29/11 1:27:00 Reglan 2011- No Blake 10 mg, 2 Mendoza janice [...] 11/29/11 1:28:00, Stop date: 11/29/11 1:28:00 metoclopram No Nikki 10 mg, 2 Memoria gadiel 6-10 Sarah mL, Route: l 04:01: Brown IVP, Drug [place] 00 form: INJ, ONCE, Priority: STAT, Start date: 11/28/11 23:01:00, Stop date: 11/28/11 23:01:00 Griffin No Nikki 4 mg, 2 Mendoza janice 6-10 Sarah mL, Route: l 02:31: Brayan IVP, Drug [place] 00 form: INJ, ONCE, Priority: STAT, Start date: 11/28/11 21:31:00, Stop date: 11/28/11 21:31:00 NS (Bolus) No Arif Domenico 1,000 mL, Memoria IV 1,000 mL 11-27 Rate: l 22:48: 1,000 Vin 00 ml/hr, Infuse over: 1 [...] Hughes-Jason 8 unit, M emoria 100 3-30 [place] SUB-Q, l units/mL 17:47: Dawson Q12H, 2 He rmann injectable 42 Pu vial, solution Substituti on Allowed, SOLN Novolin N Yes Hughes-Jason 10 unit, Memoria 100 3-30 [place] SUB-Q, l units/mL 17:46: Dawson Bedtime, H ermann subcutaneou 27 Pu 10 ml, s injection Substituti on Allowed, SUSP Novolin N Yes Hughes-Jason 14 unit, Memoria 100 3-30 [place] SUB-Q, l units/mL 17:44: Eunice QAM, 1 Her braden subcutaneou 37 Pu vial, s injection Substituti on Allowed, SUSP magnesium No Hughes-Jason 400 mg, 1 Memoria oxide 3-30 [place] tab, l 14:55: Dawson Route: PO, Her braden 00 Pu Drug form: TAB, ONCE, Priority: STAT, Start date: 09/18/11 9:55:00, Stop date: 09/18/11 9:55:00 Insulin 2011- No Hughes-Jason 8 unit, Mem oria regular 3-30 [place] 0.08 mL, l 14:22: Dawson Route: [place] 00 Pu SUB-Q, Drug form: SOLN, ONCE, Priority: STAT, Start date: 09/18/11 9:22:00, Stop date: 09/18/11 9:22:00 Lactated No Hughes-Jason 1,000 mL, Memoria Ringers 3-30 [place] Rate: l (Bolus) IV 14:16: Eun[place] 1,000 He rmann 1,000 mL 00 Pu ml/hr, Infuse over: 1 hr, Route: IV, Total Volume: 1,000, Bolus Dose, Priority: STAT, Start date: 09/18/11 9:16:00, Duration: 1 doses or times, Stop date: 09/18/11 10:15:00 Sodium No Hughes-Jason 1,000 mL, Me moria Chloride 3-30 [place] [place] Rate: l 0.9% 14:06: Eunice 1,000 [place] (Bolus) IV 00 Pu ml/hr, 1000 mL Infuse over: 1 hr, Route: IV, kg, Total Volume: 1,000, Bolus Dose, Priority: STAT, Start date: 09/18/11 9:06:00, Duration: 1 doses or times, Stop date: 09/18/11 10:05:00 sulfamethox Yes Substituti Memoria azole 3-30 on Allowed l 14:04: Vin 58 Sodium No Hughes-Jason 1,000 mL, Me moria Chloride 3-30 [place] Rate: l 0.9% 13:56: Dawson 1,000 [place] (Bolus) IV 00 Pu ml/hr, 1000 mL Infuse over: 1 hr, Route: IV, kg, Total Volume: 1,000, [place] Dose, Priority: STAT, Start date: 09/18/11 8:56:00, Duration: 1 doses or times, Stop date: 09/18/11 9:55:00 clindamycin 2011- No Eber L 300 mg, 2 Memoria 3-21 Anabelle cap, l 21:00: Route: PO, [place] 00 Drug form: CAP, Q8H, Start date: 09/09/11 16:00:00, Duration: 30 day, Stop date: 10/09/11 8:00:00 Colace 100 2011-0 Yes Luna 100 mg, 1 Memoria mg oral 3-21 Amelia cap, PO, l capsule 18:47: [place] BID, 60 Her braden 19 cap, Substituti on Allowed, CAP clindamycin Yes Luna 300 mg, 2 Memoria 150 mg oral 3-21 Amelia cap, PO, l capsule 18:46: [place] Q8H, 30 Her braden 55 cap, Substituti on Allowed, CAP [place] Yes Luna 1 tab, PO, Memoria 10/325 oral 3-21 Amelia Q4H, PRN, l tablet 18:46: [place] 30 tab, Herm naeem 36 Pain, Substituti on Allowed, Maintenanc e, TAB [place] No Hollie Donavan 1 tab, Mendoza janice [...] 3-19 Omidvar tab, l 15:30: Route: PO, [place] 00 Drug form: TAB, Daily, Start date: 09/07/11 10:30:00, Duration: 30 day, Stop date: 10/07/11 9:00:00 flumazenil 2011- No Gayle 0.2 mg, 2 Memoria 3-19 Josefina mL, Route: l 14:19: Huffman IVP, Drug Jake n 00 form: INJ, PRN, PRN Benzodiaze pine Reversal, Initial dose, Start date: 09/07/11 9:19:00, Duration: 1 day, Stop date: 09/08/11 9:18:00 naloxone 2011-0 No Gayle 0.04 mg, Me moria 3-19 Josefina 0.1 mL, l 14:19: Gavin Route: Vin 00 IVP, Drug form: INJ, Q2MIN, PRN Narcotic Reversal, Start date: 09/07/11 9:19:00, Duration: 8 doses or times, Stop date: Limited # of times ondansetron No Gayle 4 mg, 2 Memoria 3-19 Josefina mL, Route: l 14:19: Huffman IVP, Drug Jake n 00 form: INJ, ONCE, PRN Nausea & Vomiting, Start date: 09/07/11 9:19:00 hydromorpho No Gayle 0.5 mg, Memoria ne 3-19 Josefina 0.25 mL, l 14:19: Huffman Route: Vin IVP, Drug form: INJ, Q5Min, PRN Pain Score 4-6, Start date: 09/07/11 9:19:00, Duration: 5 doses or times, Stop date: Limited # of times acetaminoph 2011-0 No Gayle 15 mL, M emoria en-hydrocod 3-19 Josefina Route: PO, l one 325 14:19: Gavin Drug Form: He rmann mg-10 mg/15 00 SOLN, Q4H, mL oral PRN Pain solution Score 4-6, Start date: 09/07/11 9:19:00, Duration: 1 day, Stop date: 09/08/11 8:00:00 Lactated No Bismark 1,000 mL, Me moria Ringers IV 3-19 O[place] Rate: 125 l 1,000 mL 14:06: ml/hr, [place] 00 Infuse over: 8 hr, Route: IV, Dosing Weight 68.182 kg, Total Volume: 1,000, Start date: 09/07/11 9:06:00, Duration: 30 day, Stop date: 10/07/11 9:05:00 clindamycin No Maximo R 600 mg, Memoria 3-19 Arias Route: l 13:31: IVPB, [place] 00 ONCE, Start date: 09/07/11 8:31:00, Stop date: 09/07/11 8:31:00 normal No Yury W 1,000 mL, M emoria saline 0.9% 09-06 Adeline Rate: 100 l IV 1,000 mL 05:00: ml/hr, Herm naeem 00 Infuse over: 10 hr, Route: IV, Dosing Weight 68.18 kg, Total Volume: 1,000, Start date: 09/07/11 0:00:00, Duration: 30 day, Stop date: 10/06/11 23:59:00 normal No Yury W 1,000 mL, M emoria saline 0.9% 09-05 Adeline Rate: 100 l IV 1000 mL 13:25: ml/hr, Nidia nn 00 Infuse over: 10 hr, Route: IV, kg, Total Volume: 1,000, Start date: 09/06/11 8:25:00, Duration: 30 day, Stop date: 10/06/11 8:24:00 senna 8.6 No Bismark 8.6 mg, 1 M emoria mg oral 3-17 Omidvar tab, l tablet 15:00: Route: PO, Niida nn 00 Drug Form: TAB, BID, PRN [...] 3-17 Wong tab, l 04:00: Route: PO, [place] 00 Drug form: ECTAB, Daily, PRN Constipati [...] Duration: 30 day, Stop date: 10/04/11 18:10:00 [place] 2011-0 No Mahammad 1 tab, Memori a [...] Kavon mL, Route: l 14:50: IVP, Drug [place] 00 form: INJ, ONCE, PRN Nausea & Vomiting, Start date: 09/04/11 9:50:00, Duration: 1 doses or times, Stop date: Limited # of times ropivacaine 2011-0 No Rosalino Dosing: Memoria 0.2% in NS 3-16 Kavon 10cc/hr, l - site 1 14:50: Route: Vin 400 mL 00 NERVE BLOCK, Start date: 09/04/11 9:50:00 400 mL, Duration: 30 day, Stop date: 10/04/11 9:49:00 naloxone 2011-0 No Rosalino 0.04 mg, Me moria 3-16 Kavon 0.1 mL, l 14:50: Route: Vin IVP, Drug form: INJ, Q2MIN, PRN Narcotic Reversal, Start date: 09/04/11 9:50:00, Duration: 30 day, Stop date: 10/04/11 9:49:00 [place] 2011-0 No Bismark 1 tab, Memoria 10/325 oral 3-16 Omidvar Route: PO, l tablet 14:49: Drug Form: Nidia nn 00 TAB, Q4H, PRN Pain, Start date: 09/04/11 9:49:00, Stop date: 10/04/11 9:48:00 labetalol 2011-0 No Gregory F 5 mg, Mendoza janice 3-16 [place] Route: IV, l 14:40: ONCE, Vin 00 Start date: 09/04/11 9:40:00, Stop date: [...] Beck 0.5 mL, l 13:37: Hayden Route: IVP, Drug form: INJ, Q30Min, PRN Other [...] 3-16 Kavon 0.25 mL, l 13:37: Route: IVP, Drug form: INJ, Q5Min, PRN Pain Score 4-6, Start date: 09/04/11 8:37:00, Duration: 5 doses or times, Stop date: Limited # of times clindamycin No Eber L 600 mg, 4 Memoria 3-15 Anabelle mL, Route: l 16:00: IVPB, ABXQ8H, Start date: 09/03/11 11:00:00, Duration: 30 day, Stop date: 10/03/11 8:00:00 potassium 2011- No Bismark 40 mEq, 2 M emoria chloride 3-15 Omidvar tab, l 13:39: Route: PO, Drug form: ERTAB, ONCE, Start date: 09/03/11 8:39:00, Stop date: 09/03/11 8:39:00 [place] 5/325 2011- No Rosalino 1 tab, M emoria oral tablet 3-15 Kavon Route: PO, l 05:00: Drug Form: [place] 00 TAB, Q4H, Start date: 09/03/11 0:00:00, Duration: 30 day, Stop date: 10/02/11 20:00:00 Geodon 2011-0 No Eber L 120 mg, 3 Memoria 3-15 Anabelle cap, l 02:00: Route: PO, [place] 00 Drug form: CAP, Bedtime, Start date: 09/02/11 21:00:00, Duration: 30 day, Stop date: 10/01/11 21:00:00 trazodone 2011-0 No Eebr L 200 mg, 4 Memoria 100 mg oral 3-15 Anabelle tab, l tablet 02:00: Route: PO, Nidia nn Drug form: TAB, Bedtime, Start date: 09/02/11 21:00:00, Duration: 30 day, Stop date: 10/01/11 21:00:00 Effexor XR 2011-0 No Eber L 75 mg, 1 Memoria 3-14 Anabelle cap, l 17:00: Route: PO, Drug form: ERCAP, Daily, Give qAM after today's dose., Start date: 09/02/11 12:00:00, Duration: 30 day, Stop date: 10/02/11 9:00:00 [place] 5/325 2011-0 No Rosalino 1 tab, M emoria oral tablet 3-14 [facility] Route: PO, l 16:25: Drug Form: TAB, [...] 3-14 Anabelle Route: l 14:00: IVPB, Drug [place] 00 form: INJ, [id number], Start date: 09/02/11 9:00:00, Duration: 30 day, Stop date: 10/01/11 21:00:00 clindamycin 0 No Eber L 600 mg, 4 Memoria (SCIP) 3-14 Anabelle mL, Route: l 10:00: IVPB, [place] 00 [id number], Start date: 09/02/11 5:00:00, Duration: 3 doses or times, Stop date: 09/02/11 21:00:00 clindamycin 2011-0 No Yury 600 mg, 4 Memoria (SCIP) 3-14 Silverio mL, Route: l 04:00: Connally IVPB, [place] 00 ABXQ8H, Start date: 09/01/11 23:00:00, Duration: 3 doses or times, Stop date: 09/02/11 15:00:00 insulin 2011-0 No Bismark 15 unit, Mendoza janice isophane-ALARM INSTALLER 3-14 Omidvar 0.15 mL, l H 02:00: Route: [place] 00 SUB-Q, Drug form: INJ, Q12H, Start date: 09/01/11 21:00:00, Stop date: 10/01/11 9:00:00 labetalol No Mariaelena-Corea 5 mg, Me moria 3-14 Barbra Route: l 01:07: Feliciano IVP, [place] 00 Q5Min, PRN Elevated BP, Start date: 09/01/11 20:07:00, Duration: 5 doses or times, Stop date: Limited # of times hydrALAZINE No Mariaelena-Corea 5 mg, Memoria 3-14 Barbra Route: l 01:07: Feliciano IVP, [place] 00 Q5Min, PRN Elevated BP, Start date: 09/01/11 20:07:00, Duration: 4 doses or times, Stop date: Limited # of times hydromorpho 2012-0 No Mariaelena-Corea 0.5 mg, Memoria ne 3-14 [...] Barbra Route: l 01:07: Feliciano IVP, PRN, Vin 00 PRN Benzodiaze pine Reversal, Initial dose, Start date: 09/01/11 20:07:00, Duration: 30 day, Stop date: 10/01/11 20:06:00 ondansetron No Mariaelena-Corea 4 mg, Memoria 3-14 Barbra Route: l 01:07: Feliciano IVP, ONCE, Vin 00 PRN Nausea & Vomiting, Start date: 09/01/11 20:07:00 vancomycin No Mele 1 gm, Mem oria 3-14 Gauvain Route: l 01:00: IVPB, Drug form: INJ, [id number], Start date: 09/01/11 20:00:00, Duration: 30 day, Stop date: 10/01/11 8:00:00 Lactated No Charbel A 1,000 mL, Memoria Ringers IV 3-14 Wong Rate: 125 l 1,000 mL 00:55: ml/hr, Infuse over: 8 hr, Route: IV, Dosing Weight 68.2 kg, Total Volume: 1,000, Start date: 09/01/11 19:55:00, Duration: 30 day, Stop date: 10/01/11 19:54:00 vancomycin 0 No Missael 1 gm, Memor ia 3-14 Movva Route: l 00:00: IVPB, Drug form: INJ, [id number], Start date: 09/01/11 19:00:00, Duration: 30 day, [...] Movva Route: IM, l 23:23: Drug form: PDR/INJ, PRN, PRN Blood Glucose Results, Start date: 09/01/11 18:23:00, Duration: 30 day, Stop date: 10/01/11 18:22:00 Dextrose 2011-0 No Missael 25 gm, 50 Mem oria 50% Syringe 3-13 Movva mL, Route: l 23:23: IVP, Drug Form: INJ, PRN, PRN Blood Glucose Results, Start date: 09/01/11 18:23:00, Duration: 30 day, Stop date: 10/01/11 18:22:00 morphine 2011-0 No Daja Shannan 2 mg, 1 M emoria Sulfate 3-13 Beni mL, Route: l 21:14: IVP, Drug form: INJ, Q4H, PRN Severe Pain, Start date: 09/01/11 16:14:00, Stop date: 10/01/11 16:13:00 Lactated 2011-0 No Cesar 1,000 mL, Me moria Ringers IV 3-13 Manuel Maiden Rate: 100 l 1,000 mL 19:03: ml/hr, Infuse over: 10 hr, Route: IV, [...] 2011- No [place] 8 unit, Memoria regular 313 Madden 0.08 mL, l 15:28: Gurinder Route: Vin 00 SUB-Q, Drug form: SOLN, ONCE, Priority: STAT, Start date: 09/01/11 10:28:00, Stop date: 09/01/11 10:28:00 Sodium 2011-0 No [place] 1,000 mL, Memori a Chloride 3-13 [place] Rate: l 0.9% 14:53: Gurinder 1,000 [place] (Bolus) IV 00 ml/hr, 1,000 mL Infuse [...] emoria Chloride - [place] Rate: l 0.9% 10:41: 1,000 Vin [...] L 4 mg, Mem oria Sulfate 08-31 [place] Route: l 09:06: IVP, ONCE, [place] 00 Priority: STAT, Start date: 09/01/11 4:06:00, Stop date: 09/01/11 4:06:00 Sodium 2011-0 No Bee L 1,000 mL, M emoria Chloride 08-31 [place] Rate: l 0.9% 08:42: 1,000 [place] (Bolus) IV 00 ml/hr, 1000 mL Infuse over: 1 hr, Route: IV, Dosing Weight 68.182 kg, Total Volume: 1,000, [place] Dose, Priority: STAT, Start date: 09/01/11 3:42:00, Duration: 1 doses or times, Stop date: 09/01/11 4:41:00 Insulin 2011-0 No Bee L 8 unit, Me moria regular 08-31 [place] 0.08 mL, l 08:30: Route: Vin 00 IVP, Drug form: SOLN, ONCE, Priority: STAT, Start date: 09/01/11 3:30:00, Stop date: 09/01/11 3:30:00 Sodium 2011-0 No Bee L 1,000 mL, M emoria Chloride 08-31 [place] Rate: l 0.9% 07:29: 1,000 Vin (Bolus) IV 00 ml/hr, 1,000 mL Infuse over: 1 hr, Route: IV, Dosing Weight 68.182 kg, Total Volume: 1,000, [place] Dose, Priority: STAT, Start date: 09/01/11 2:29:00, Duration: 1 doses or times, Stop date: 09/01/11 3:28:00 potassium No Velásquez Noam 40 mEq, 2 Memoria chloride 3-04 Akmal tab, l 15:00: Route: PO, Drug form: ERTAB, BID, Start date: 08/23/11 [...] Akmal SUB-Q, l units/mL 14:42: BID, 3 [place] subcutaneou 04 vial, 3, s injection 3, [...] 3-04 Akmal 100 mL, l 14:00: Route: IVPB, Drug form: INJ, Q2H, Start date: [...] Akmal mL, Route: l 13:26: IVPB, Drug [place] 00 form: INJ, ONCE, Total dose = [...] 3-02 Akmal tab, l 15:00: Route: PO, Drug form: TAB, Daily, Start date: 08/21/11 [...] mL, Route: l 17:15: Ahmed IVP, Drug [place] 00 form: INJ, Q8H, PRN Nausea, Start date: 08/20/11 11:15:00, Duration: 30 day, Stop date: 09/19/11 11:14:00 insulin 2011-0 No Yury 10 unit, Mem oria isophane-ALARM INSTALLER 3-01 Gato Route: l H 16:00: Rivero SUB-Q, Nidia nn 00 ONCE, Start date: 08/20/11 10:00:00, Stop date: 08/20/11 10:00:00 trazodone 2011-0 Yes 200 mg, 2 Mem oria 100 mg oral 3-01 tab, PO, l tablet 15:37: Bedtime, [place] 27 90 tab, Substituti on Allowed, TAB [...] insulin No Yury 10 unit, Mem oria isophane-ALARM INSTALLER 3- Gato Route: l H 15:00: Rivero SUB-Q, Nidia nn 00 Q12H, Start date: 08/20/11 9:00:00, Duration: 30 day, Stop date: 09/18/11 21:00:00 Geodon 2011- No Yury 60 mg, 3 Mendoza janice 3- [place] cap, l 15:00: Irvero Route: PO, H ermann 00 Drug form: CAP, BID, Start date: 08/20/11 9:00:00, Duration: 30 day, Stop date: 09/18/11 17:00:00 Effexor XR No Yury 75 mg, 1 Memoria 3- [place] cap, l 15:00: Rivero Route: PO, H erm 00 Drug form: ERCAP, Daily, Start date: 08/20/11 [...] No Velásquez Noam 10 unit, Memoria regular 3-01 Akmal SUB-Q, l 09:28: BID, Vin 23 Substituti on Allowed insulin No 10 unit, Memori a isophane-ALARM INSTALLER 3- SUB-Q, l H 09:26: BID, [place] 18 Substituti on Allowed NS 1,000 mL No Velásquez Noam 1,000 mL, Memoria - Akmal Rate: 150 l 09:06: ml/hr, Infuse over: 6.7 hr, Route: IV, [...] 2011- No Yury 18 unit, Mem oria isophane-ALARM INSTALLER 3-01 G[place] 0.18 mL, l H 08:58: Rivero Route: Nidia nn 00 SUB-Q, Drug form: INJ, Q12H, Start date: 08/20/11 2:58:00, Stop date: 09/18/11 21:00:00 insulin 2011- No Yury 2 unit, Mendoza janice aspart [...] 25 gm, 50 M emoria 50% Syringe -01 G[place] ml, Route: l 08:46: Rivero IVP, Drug He rm Form: INJ, PRN, PRN Blood Glucose Results, Start date: 08/20/11 2:46:00, Duration: 30 day, Stop date: 09/19/11 3:45:00 ondansetron No Hughes-Jason 4 mg, M emoria 08-19 [place] Route: l 07:42: Dawson IVP, Drug Herm naeem 00 Pu form: INJ, ONCE, Priority: STAT, Start date: 08/20/11 1:42:00, Stop date: 08/20/11 1:42:00 GI cocktail No Hughes-Jason 30 ml, Memoria 08-19 [place] Route: PO, l 05:12: Dawson Drug Form: Her braden 00 Pu SUSP, ONCE, STAT, Start date: 08/19/11 23:12:00, Stop date: 08/19/11 23:12:00 ondansetron No Hughes-Jason 4 mg, M emoria 08-19 [place] Route: PO, l 05:10: Dawson Drug form: Her braden 00 Pu TABDIS, ONCE, Priority: STAT, Start date: 08/19/11 23:10:00, Stop date: 08/19/11 23:10:00 Lactated No Hughes-Jason 1,000 mL, Memoria Ringers 08-19 [place] Rate: l (Bolus) IV 05:10: Dawson 1,000 He rmann 1000 mL 00 Pu ml/hr, Infuse over: 1 hr, Route: IV, Total Volume: 1,000, [place] Dose, Priority: STAT, Start date: 08/19/11 23:10:00, Duration: 1 doses or times, Stop date: 08/20/11 0:09:00 Insulin No Hughes-Jason 7 unit, Mem oria regular 08-19 [place] 0.07 mL, l 04:15: Eunice Route: Vin 00 Pu SUB-Q, Drug [...] 75 mg, 1 Memoria 75 mg oral Gato cap, PO, l capsule, 23:22: Rivero Daily, 30 [place] extended 24 cap, release Substituti on Allowed [...] ondansetron No William 8 mg, Mem oria - Wong Route: l 21:57: Pooja IVP, Drug [...] Systolic (mm Hg) 2016-07-30 14:00:00 Mendoza rial [place] Diastolic (mm Hg) 2016-07-30 14:00:00 Mem orial [place] Respitory Rate 2016-07-30 14:00:00 Memori al Vin [...] al Vin Heart Rate 2016-07-30 06:35:00 [facility] [place] Temperature Oral (F) 2016-07-30 06:35:00 97.0 F [facility] [place] Respitory Rate 2016-07-30 06:35:00 Memori al Vin Systolic (mm Hg) 2016-07-30 06:35:00 Mendoza rial Vin Diastolic (mm Hg) 2016-07-30 06:35:00 Mem orial Vin Weight 2016-07-24 02:13:00 Memorial Vin BMI Calculated 2016-07-24 02:13:00 Memori al [place] Height 2016-07-24 02:13:00 160.02 cm Memorial Vin Respitory Rate 2016-06-15 15:00:00 Memori al Vin Systolic (mm Hg) 2016-06-15 15:00:00 Mendoza rial [place] Diastolic (mm Hg) 2016-06-15 15:00:00 Mem orial [place] Respitory Rate 2016-06-15 14:00:00 Memori al Vin Systolic (mm Hg) 2016-06-15 14:00:00 Mendoza rial [place] Diastolic (mm Hg) 2016-06-15 14:00:00 Mem orial [place] Respitory Rate 2016-06-15 13:29:00 Memori al [place] Systolic (mm Hg) 2016-06-15 13:29:00 Mendoza rial Vin Diastolic (mm Hg) 2016-06-15 13:29:00 Mem orial [place] Temperature Oral (F) 2016-06-14 10:56:00 97.1 F Memorial Vin Temperature Oral (F) 2016-06-14 06:55:00 97.1 F Memorial Vin Temperature Oral (F) 2016-06-12 10:00:00 96.8 F [facility] [place] Weight 2016-06-11 04:25:00 Memorial Vin Height 2016-06-11 04:25:00 160.02 cm Memorial Vin BMI Calculated 2016-06-11 04:25:00 Memori al [place] Heart Rate 2016-06-11 02:04:00 [facility] [place] Heart Rate 2016-06-11 00:00:00 Memorial Vin Heart Rate 2016-06-10 20:30:00 [facility] [place] Weight 2016-06-10 16:04:00 [facility] [place] BMI Calculated 2016-06-10 16:04:00 Memori al [place] Height 2016-06-10 16:04:00 160.02 cm Memorial Vin Temperature Oral (F) 2014-06-26 15:12:00 98.0 F [facility] Vin Systolic (mm Hg) 2014-06-26 15:12:00 Mendoza rial Vin Heart Rate 2014-06-26 15:12:00 [facility] [place] Diastolic (mm Hg) 2014-06-26 15:12:00 Mem orial [place] Respitory Rate 2014-06-26 15:12:00 Memori al Vin Systolic (mm Hg) 2014-06-26 13:53:00 Mendoza rial [place] Diastolic (mm Hg) 2014-06-26 13:53:00 Mem orial Vin Respitory Rate 2014-06-26 13:53:00 Memori al [place] Temperature Oral (F) 2014-06-26 13:53:00 98.0 F [facility] [place] Temperature Oral (F) 2014-06-26 12:37:00 98.2 F [facility] [place] Respitory Rate 2014-06-26 12:37:00 Memori al [place] Systolic (mm Hg) 2014-06-26 12:37:00 Mendoza rial Vin Diastolic (mm Hg) 2014-06-26 12:37:00 Mem orial Vin Heart Rate 2014-06-26 09:21:00 [facility] [place] Heart Rate 2014-06-26 06:08:00 [facility] [place] Height 2014-06-26 05:35:00 154.94 cm [facility] Vin Weight 2014-06-26 05:35:00 [facility] Vin BMI Calculated 2014-06-26 05:35:00 Memori al [place] Respitory Rate 2013-04-15 06:10:00 Memori al Vin Diastolic (mm Hg) 2013-04-15 06:10:00 Mem orial Vin Heart Rate 2013-04-15 06:10:00 [facility] [place] Systolic (mm Hg) 2013-04-15 06:10:00 Mendoza rial Vin Temperature Oral (F) 2013-04-15 06:10:00 98.7 F Memorial Vin Respitory Rate 2013-04-15 05:37:00 Memori al Vin Diastolic (mm Hg) 2013-04-15 05:37:00 Mem orial [place] Systolic (mm Hg) 2013-04-15 05:37:00 Mendoza rial Vin Temperature Oral (F) 2013-04-15 05:37:00 98.2 F [facility] [place] Heart Rate 2013-04-15 05:37:00 [facility] Ivn Height 2013-04-15 02:06:00 160.02 cm [facility] [place] Weight 2013-04-15 02:06:00 [facility] [place] Temperature Oral (F) 2013-04-15 02:06:00 98.6 F [facility] Vin Respitory Rate 2013-04-15 02:06:00 Memori al [place] Heart Rate 2013-04-15 02:06:00 [facility] [place] Diastolic (mm Hg) 2013-04-15 02:06:00 Mem o[facility] [place] Systolic (mm Hg) 2013-04-15 02:06:00 Mendoza rial [place] Weight 2012-03-14 21:33:00 Memorial Vin Systolic (mm Hg) 2011-12-01 00:33:00 Mendoza rial [place] Respitory Rate 2011-12-01 00:33:00 Memori al [place] Heart Rate 2011-12-01 00:33:00 [facility] [place] Diastolic (mm Hg) 2011-12-01 00:33:00 Mem orial Vin Temperature Oral (F) 2011-12-01 00:33:00 99.6 F [facility] [place] Diastolic (mm Hg) 2011-11-30 21:00:00 Mem [facility] [place] Heart Rate 2011-11-30 21:00:00 [facility] Vin Respitory Rate 2011-11-30 21:00:00 Memori al Vin Systolic (mm Hg) 2011-11-30 21:00:00 Mendoza rial Vin Temperature Oral (F) 2011-11-30 21:00:00 99.8 F [facility] [place] Respitory Rate 2011-11-30 16:30:00 Memori al Vin Systolic (mm Hg) 2011-11-30 16:30:00 Mendoza rial [place] Diastolic (mm Hg) 2011-11-30 16:30:00 Mem orial Vin Heart Rate 2011-11-30 16:30:00 [facility] Vin Temperature Oral (F) 2011-11-30 16:30:00 99.8 F [facility] Vin Weight 2011-11-29 11:40:00 [facility] Vin Height 2011-11-29 11:40:00 157.48 cm [facility] [place] Weight 2011-11-28 17:16:00 [facility] Vin Weight 2011-09-18 13:30:00 [facility] Vin Height 2011-09-18 13:30:00 154.94 cm [facility] Vin Heart Rate 2011-09-09 13:31:00 [facility] [place] Systolic (mm Hg) 2011-09-09 13:02:00 Mendoza rial [place] Diastolic (mm Hg) 2011-09-09 13:02:00 Mem orial Vin Respitory Rate 2011-09-09 13:02:00 Memori al Vin Temperature Oral (F) 2011-09-09 13:02:00 97.5 F [facility] [place] Diastolic (mm Hg) 2011-09-09 08:00:00 Mem orial Vin Heart Rate 2011-09-09 08:00:00 [facility] Vin Temperature Oral (F) 2011-09-09 08:00:00 98.6 F [facility] Vin Respitory Rate 2011-09-09 08:00:00 Memori al [place] Systolic (mm Hg) 2011-09-09 08:00:00 Mendoza rial Vin Respitory Rate 2011-09-09 04:55:00 Memori al Vin Diastolic (mm Hg) 2011-09-09 04:55:00 Mem orial Vin Systolic (mm Hg) 2011-09-09 04:55:00 Mendoza rial [place] Heart Rate 2011-09-09 04:55:00 [facility] [place] Temperature Oral (F) 2011-09-09 00:55:00 98.7 F [facility] [place] Weight 2011-09-01 19:59:00 [facility] Vin Height 2011-09-01 19:59:00 154.94 cm [facility] Vin Height 2011-09-01 07:01:00 154.94 cm [facility] [place] Weight 2011-09-01 07:01:00 [facility] Vin Respitory Rate 2011-08-23 18:00:00 [facility] al [place] Heart Rate 2011-08-23 18:00:00 [facility] Vin Systolic (mm Hg) 2011-08-23 18:00:00 Mendoza rial Vin Diastolic (mm Hg) 2011-08-23 18:00:00 [facility] [place] Temperature Oral (F) 2011-08-23 18:00:00 97.7 F [facility] Vin Heart Rate 2011-08-23 14:24:00 [facility] [place] Temperature Oral (F) 2011-08-23 14:24:00 98.2 F [facility] Vin Diastolic (mm Hg) 2011-08-23 14:24:00 Mem orial Vin Systolic (mm Hg) 2011-08-23 14:24:00 Mendoza rial Vin Respitory Rate 2011-08-23 14:24:00 Memori al Vin Systolic (mm Hg) 2011-08-23 11:15:00 Mendoza rial Vin Diastolic (mm Hg) 2011-08-23 11:15:00 [facility] [place] Temperature Oral (F) 2011-08-23 11:00:00 98.3 F [facility] [place] Heart Rate 2011-08-23 11:00:00 [facility] Vin Respitory Rate 2011-08-22 22:00:00 Memori al Vin Height 2011-08-20 09:12:00 154.94 cm [facility] [place] Weight 2011-08-20 09:12:00 [facility] Vin Height 2011-08-19 20:28:00 154.94 cm [facility] [place] Weight 2011-08-19 20:28:00 [facility] [place] Procedures Procedure Date / Time Performed Performing Clinician [facility] e Emergency department visit 2013-04-15 05:00:00 [facility] [place] for the evaluation and management of a patient, which requires these 3 kamara components within the constraints imposed by the urgency of the patient's clinical condition and/or mental status: A comprehensive history; A comprehensi Injection or Infusion of 2013-04-15 05:00:00 Mem o[facility] Vin Other Therapeutic or Prophylactic Substance Intravenous infusion, 2013-04-15 05:00:00 [facility] [place] hydration; each additional hour (List separately in addition to code for primary procedure) Therapeutic, prophylactic, 2013-04-15 05:00:00 [facility] Vin or diagnostic injection (specify substance or drug); each additional sequential intravenous push of a new substance/drug (List separately in addition to code for primary procedure) Therapeutic, prophylactic, 2013-04-15 05:00:00 [facility] [place] or diagnostic injection (specify substance or drug); intravenous push, single or initial substance/drug [facility] Encounters Start End Encounter Admission Attending Care Care Encounter Source Date/Time Date/Time Type Type Clinicians Facility Department ID 2020-10-27 2020-10-27 Keyona Olivares [facility] [id number] 00:00:00 00:00:00 (Out) Oz Sims [id number] Fausto [id number] Professio [phone] nal 059 [facility] 2020-09-24 2020-09-24 Refill Carlos [facility] [id number] 00:00:00 00:00:00 Jose Luis Centenoton [id number] Fausto [id number] Professio [id number] nal 220 [facility] 2020-09-09 2020-09-09 [facility] [id number] 00:00:00 00:00:00 Outreach Earl PRIMARY [id number] Manuel CARE [id number] PAVILLION [id number] 2020-07-23 2020-07-23 Office Black [facility] [id number] 13:31:20 14:37:36 Visit Deja PRIMARY [id number] A CARE [id number] PAVILLION [id number] 2020-01-25 2020-01-31 Inpatient 1 Rei Waldron [facility] [id number] 21:31:00 18:15:00 Rei Waldron [facility] 2016-07-23 2016-07-30 Outpatient Yaquelin [facility] [id number] 20:04:00 10:20:00 Luna 10 2016-06-10 2016-06-15 Outpatient Franck [facility] [id number] 10:02:00 12:23:00 Joe Yan 09 2014-06-25 2014-06-26 Outpatient Courtney [facility] [id number] 23:25:00 09:14:00 Atul Priest 2013-04-14 2013-04-15 [facility] [id number] Memoria 21:04:00 01:45:00 Vin Serrano l [facility] 2013-04-14 2013-04-15 [facility] [id number] Memoria 21:04:00 01:45:00 Vin Serrano l [facility] 2013-04-14 2013-04-15 [facility] [id number] [facility] 21:04:00 01:45:00 [facility] [address] [place] [address] [facility] 2013-04-14 2013-04-15 [facility] [id number] [facility]:04[facility] 01:45:00 [place] [address] [place] [address] 2013-04-14 2013-04-15 [facility] [id number] [facility] 21:04:00 01:45:[address] [facility] Results Test Description Test Time Test Comments [...] the main Lab for analysi s. Urine [id number] 11:32:13 Test Item Value Reference Range Interpretation [...] Escherichia coli C Urine Added by GL_SJM_UA_CUL_INDPOC [id number] 07:52:10 Test Item Value Reference Range Interpretation Comments Glucose POC (test 160 mg/dL 70-115 H If you con wind turbine electrical engineer your code = Glucose POC) patient critically ill, the Merlin-Accu Check Infrom II meter should not be used for Glucose determination. Draw a venous Glucose and send to the main Lab for analysis. POC [id number] 19:32:05 Test Item Value Reference Range Interpretation Comments Glucose POC (test 184 mg/dL 70-115 H If you con wind turbine electrical engineer your code = Glucose POC) patient critically ill, the Merlin-Accu Check Infrom II meter should not be used for Glucose determination. Draw a venous Glucose and send to the main Lab for analysis. POC [id number] 17:16:35 Test Item Value Reference Range Interpretation Comments Glucose POC (test 281 mg/dL 70-115 H Notify RN or MDIf you code = Glucose POC) consider your patient critically ill, the Merlin-Accu Chec k Infrom II meter should not be used for Glucos e determination. Draw a venous Glucose and send to the main Lab for analysis. POC [id number] 12:00:38 Test Item Value Reference Range Interpretation Comments Glucose POC (test 138 mg/dL 70-115 H Notify RN or MDIf you code = Glucose POC) consider your patient critically ill, the Merlin-Accu Chec k Infrom II meter should not be used for Glucos e determination. Draw a venous Glucose and send to the main Lab for analysis. POC [id number] 07:41:32 Test Item Value Reference Range Interpretation Comments Glucose POC (test 206 mg/dL 70-115 H Notify RN or MDIf you code = Glucose POC) consider your patient critically ill, the Merlin-Accu Chec k Infrom II meter should not be used for Glucos e determination. Draw a venous Glucose and send to the main Lab for analysis. Urinalysis [id number] 21:07:21 Test Item Value Reference Range Interpretation Comments UA WBC (test code = UA WBC) TNTC 0-5 A UA RBC (test code = UA RBC) 6-10 0-5 A UA Bacteria (test code = UA Bacteria) Profuse A UA Squam Epithelial (test code = UA 6-10 A Squam Epithelial) Urinalysis with Culture, if [id number] 20:35:14 Test Item Value Reference Range Interpretation [...] Micro Indicated Not Indicated A Ind?) POC [id number] 19:06:34 Test Item Value Reference Range Interpretation Comments Glucose POC (test 207 mg/dL 70-115 H If you con wind turbine electrical engineer your code = Glucose POC) patient critically ill, the Merlin-Accu Check Infrom II meter should not be used for Glucose determination. Draw a venous Glucose and send to the main Lab for analysis. POC [id number] 17:12:03 Test Item Value Reference Range Interpretation Comments Glucose POC (test 173 mg/dL 70-115 H Notify RN or MDIf you code = Glucose POC) consider your patient critically ill, the Merlin-Accu Chec k Infrom II meter should not be used for Glucos e determination. Draw a venous Glucose and send to the main Lab for analysis. POC [id number] 11:58:01 Test Item Value Reference Range Interpretation Comments Glucose POC (test 289 mg/dL 70-115 H Notify RN or MDIf you code = Glucose POC) consider your patient critically ill, the Merlin-Accu Chec k Infrom II meter should not be used for Glucos e determination. Draw a venous Glucose and send to the main Lab for analysis. POC [id number] 08:19:37 Test Item Value Reference Range Interpretation Comments Glucose POC (test 201 mg/dL 70-115 H Notify RN or MDIf you code = Glucose POC) consider your patient critically ill, the Merlin-Accu Chec k Infrom II meter should not be used for Glucos e determination. Draw a venous Glucose and send to the main Lab for analysis. POC [id number] 20:37:35 Test Item Value Reference Range Interpretation Comments Glucose POC (test 272 mg/dL 70-115 H If you con wind turbine electrical engineer your code = Glucose POC) patient critically ill, the Merlin-Accu Check Infrom II meter should not be used for Glucose determination. Draw a venous Glucose and send to the main Lab for analysis. POC [id number] 17:23:05 Test Item Value Reference Range Interpretation Comments Glucose POC (test 229 mg/dL 70-115 H If you con wind turbine electrical engineer your code = Glucose POC) patient critically ill, the Merlin-Accu Check Infrom II meter should not be used for Glucose determination. Draw a venous Glucose and send to the main Lab for analysis. POC [id number] 12:01:01 Test Item Value Reference Range Interpretation Comments Glucose POC (test 155 mg/dL 70-115 H If you con wind turbine electrical engineer your code = Glucose POC) patient critically ill, the Merlin-Accu Check Infrom II meter should not be used for Glucose determination. Draw a venous Glucose and send to the main Lab for analysis. POC [id number] 08:07:32 Test Item Value Reference Range Interpretation Comments Glucose POC (test 248 mg/dL 70-115 H If you con wind turbine electrical engineer your code = Glucose POC) patient critically ill, the Merlin-Accu Check Infrom II meter should not be used for Glucose determination. Draw a venous Glucose and send to the main Lab for analysis. IG [id number] 06:50:39 Test Item Value Reference Range Interpretation Comments IG (test code = IG) 0.7 % 0.0-5.0 IG Abs (test code = IG Abs) 0 x10 N Complete Blood Count with [id number] 06:50:38 Test Item Value Reference Range Interpretation [...] code = IPF) 0 % N Automated [id number] 06:50:38 Test Item Value Reference Range Interpretation Comments Neutro Auto (test code = Neutro 50.3 % 36.0-70.0 Auto) Lymph Auto (test code = Lymph Auto) 38.6 % 12.0-44.0 Wayne Auto (test code = Wayne Auto) 7.3 % 0.0-11.0 Eos, Auto (test code = Eos, Auto) 2.4 % 0.0-7.0 Basophil Auto (test code = Basophil 0.7 % 0.0-2.0 Auto) Neutro Absolute (test code = Neutro 3.0 x10 1.6-7.4 Absolute) Lymph Absolute (test code = Lymph 2.28 x10 .50-4.60 Absolute) Wayne Absolute (test code = Wayne .43 x10 .00-1.20 Absolute) Eos Absolute (test code = Eos 0.14 x10 0.00-0.74 Absolute) Baso Absolute (test code = Baso 0.04 x10 0.00-0.21 Absolute) Basic Metabolic [id number] 05:38:20 Test Item Value Reference Range Interpretation [...] Level) Hemolysis (test code = 0 mg/dL 8- Hemolysis) Icterus (test code = Icterus) 0 mg/dL 8-11 Lipemia (test code = Lipemia) 0 mg/dL 8-11 Basic Metabolic [id number] 05:38:20 Test Item Value Reference Range Interpretation [...] = 0 mg/dL 8-11 Lipemia) Basic Metabolic [id number] 05:38:20 Test Item Value Reference Range Interpretation [...] ag e have not been validated by [facility] MDRD study and should be interpreted [...] ag e have not been validated by [facility] MDRD study and should be interpreted [...] code = 0 mg/dL 8-11 Lipemia) POC [id number] 20:28:33 Test Item Value Reference Range Interpretation Comments Glucose POC (test 169 mg/dL 70-115 H If you con wind turbine electrical engineer your code = Glucose POC) patient critically ill, the Merlin-Accu Check Infrom II meter should not be used for Glucose determination. Draw a venous Glucose and send to the main Lab for analysis. POC [id number] 16:39:30 Test Item Value Reference Range Interpretation Comments Glucose POC (test 103 mg/dL 70-115 If you con wind turbine electrical engineer your code = Glucose POC) patient critically ill, the Merlin-Accu Check Infrom II meter should not be used for Glucose determination. Draw a venous Glucose and send to the main Lab for analysis. RPR [id number] 12:08:56 Test Item Value Reference Range Interpretation Comments RPR Qual (test code = RPR Qual) Non-Reactive Non-Reactive Reactive Control (test code = Reactive Reactive Control) Weak Reactive Control (test Weak Reactive code = Weak Reactive Control) Non-Reactive Control (test code Non-Reactive = Non-Reactive Control) Lot # (test code = Lot #) [id number] N Expiration Dt (test code = 03-20-2021 N Expiration Dt) POC [id number] 11:52:31 Test Item Value Reference Range Interpretation Comments Glucose POC (test 250 mg/dL 70-115 H If you con wind turbine electrical engineer your code = Glucose POC) patient critically ill, the Merlin-Accu Check Infrom II meter should not be used for Glucose determination. Draw a venous Glucose and send to the main Lab for analysis. POC [id number] 07:55:29 Test Item Value Reference Range Interpretation Comments Glucose POC (test 205 mg/dL 70-115 H If you con wind turbine electrical engineer your code = Glucose POC) patient critically ill, the Merlin-Accu Check Infrom II meter should not be used for Glucose determination. Draw a venous Glucose and send to the main Lab for analysis. Lipid [id number] 05:46:04 Test Item Value Reference Range Interpretation [...] LDL/HDL Ratio=L DL Calc/HDL Chol Thyroid Stimulating [id number] 05:46:04 Test Item Value Reference Range Interpretation Comments TSH (test code = TSH) 3.274 mcIU/mL 0.550-4.780 Hemoglobin [id number] 05:41:08 Test Item Value Reference Range Interpretation Comments Hemoglobin A1c (test code 7.6 % 4.0-5.8 H Di abetic >=6.5 = Hemoglobin A1c) %Prediabet es 5.7-6.4 %Normal <5.7 % Hepatitis B Surface [id number] 21:19:36 Test Item Value Reference Range Interpretation Comments Hep Bs Ag (test code = Hep Bs Non-Reactive Non-Reactive Ag) Novel Coronavirus SARS-CoV-2, [id number] 11:16:16 Test Item Value Reference Range Interpretation [...] Emergency Use Authorization." Novel Coronavirus (COVID-19), EMANUEL [id number] 11:11:24TNPTest not sent and performed at [facility].Rapid was perfomed in Microbiology.Wrong covid test was ord ered.Urine DOA [id number] 00:17:49 Test Item Value Reference Range Interpretation [...] Propoxyphene Confirmation wi thin 7 days. Alcohol [id number] 00:17:29 Test Item Value Reference Range Interpretation Comments Ethanol Level 9.0 mg/dL N The pharmacolo gical (test code = response to blo od alcohol Ethanol Level) levels may va ry from individual to i ndividual. The fatal omkar ntration has been report ed to be >400 mg/dl. Comprehensive Metabolic [id number] 00:17:28 Test Item Value Reference Range Interpretation [...] = Lipemia) 0 g/dL 1-2 Comprehensive Metabolic [id number] 00:17:28 Test Item Value Reference Range Interpretation [...] = 0 g/dL 1-2 Lipemia) Comprehensive Metabolic [id number] 00:17:28 Test Item Value Reference Range Interpretation [...] g/dL 1-2 Lipemia) Complete Blood Count with [id number] 23:26:28 Test Item Value Reference Range Interpretation [...] code = IPF) 0 % N Automated [id number] 23:26:28 Test Item Value Reference Range Interpretation Comments Neutro Auto (test code = Neutro 67.1 % 36.0-70.0 Auto) Lymph Auto (test code = Lymph Auto) 23.3 % 12.0-44.0 Wayne Auto (test code = Wayne Auto) 5.8 % 0.0-11.0 Eos, Auto (test code = Eos, Auto) 2.3 % 0.0-7.0 Basophil Auto (test code = Basophil 0.8 % 0.0-2.0 Auto) Neutro Absolute (test code = Neutro 6.0 x10 1.6-7.4 Absolute) Lymph Absolute (test code = Lymph 2.10 x10 .50-4.60 Absolute) Wayne Absolute (test code = Wayne .52 x10 .00-1.20 Absolute) Eos Absolute (test code = Eos 0.21 x10 0.00-0.74 Absolute) Baso Absolute (test code = Baso 0.07 x10 0.00-0.21 Absolute) IG [id number] 23:26:28 Test Item Value Reference Range Interpretation Comments IG (test code = IG) 0.7 % 0.0-5.0 IG Abs (test code = IG Abs) 0 x10 N HERPES VIRUS ANTIBODY, [id number] 21:46:00 Test Item Value Reference Range Interpretation Comments HERPES VIRUS IGM (BEAKER) Negative SE E ATTACHMENT (test code = 1808) BLOOD [id number] 06:00:00 Test Item Value Reference Range Interpretation Comments CULTURE (BEAKER) (test No growth in 5 days code = 1095) BLOOD [id number] 06:00:00 Test Item Value Reference Range Interpretation Comments CULTURE (BEAKER) (test No growth in 5 days code = 1095) POCT-GLUCOSE [id number] 12:11:00 Test Item Value Reference Range Interpretation Comments POC-GLUCOSE METER 154 mg/dL 70-110 H TESTED AT [facility] 6720 (BEAKER) (test code = [facility] [employer] 1538) [address] POCT-GLUCOSE [id number] 07:53:00 Test Item Value Reference Range Interpretation Comments POC-GLUCOSE METER 87 mg/dL 70-110 TESTED AT [facility] 6720 (BEAKER) (test code = [facility] [employer] [address] 1538) POCT-GLUCOSE [id number] 06:49:00 Test Item Value Reference Range Interpretation Comments POC-GLUCOSE METER 79 mg/dL 70-110 TESTED AT [place] [id number] (BEAKER) (test code = [facility] [employer] [address] 1538) COMPREHENSIVE METABOLIC [id number] 06:15:00 Test Item Value Reference Range Interpretation [...] S NOT APPLICABLE FOR DIALYSIS PATIEN TS. [id number] 06:11:00 Test Item Value Reference Range Interpretation Comments MAGNESIUM (BEAKER) (test code = 2.1 mg/dL 1.6-2.6 627) HEPATIC FUNCTION [id number] 06:11:00 Test Item Value Reference Range Interpretation [...] code = 513 U/L 6-55 H 347) [id number] 05:30:00 Test Item Value Reference Range Interpretation Comments FIBRINOGEN LEVEL (BEAKER) (test 368 mg/dl 225-434 code = 658) [id number] 05:30:00 Test Item Value Reference Range Interpretation Comments PARTIAL THROMBOPLASTIN TIME 42.2 seconds 22.5-36.0 H (BEAKER) (test code = 760) PROTHROMBIN [id number] 05:29:00 Test Item Value Reference Range Interpretation Comments PROTIME (BEAKER) (test code = 14.8 seconds 11.7-14.7 H 759) INR (BEAKER) (test code = 370) 1.2 <=5.9 RECOMMENDED COUMADIN/WARFARIN INR THERAPY RANGESSTANDARD DOSE: 2.0 - 3.0 Includes: PROPHYLAXIS forvenous thrombosis, systemic embolization; TREATMENT for venous thrombosis and/or pulmonary embolus.HIGH RISK: Target INR is 2.5-3.5 for patients with mechanical heart valves.POCT-GLUCOSE [id number] 21:09:00 Test Item Value Reference Range Interpretation Comments POC-GLUCOSE METER 178 mg/dL 70-110 H TESTED AT [place] [address] ([facility]) (test code = [facility] 1538) [address] POCT-GLUCOSE [id number] 17:18:00 Test Item Value Reference Range Interpretation Comments POC-GLUCOSE METER 178 mg/dL 70-110 H TESTED AT [place] [address] ([facility]) (test code = [facility] 1538) [address] POCT-GLUCOSE [id number] 13:48:00 Test Item Value Reference Range Interpretation Comments POC-GLUCOSE METER 150 mg/dL 70-110 H TESTED AT [place] [address] ([facility]) (test code = [facility] 1538) [address] FACTOR 5 ACTIVITY (BLEEDING RISK)2017-01-06 10:04:00 Test Item Value Reference Range Interpretation Comments FACTOR V ACTIVITY ([facility]) (test code 90.0 % 60.0-150.0 = 665) Effective 10/24/2013: Reference Range Change-Adult onlyNew: 60.0-150.0 Previous: 50.0-150.0CYTOMEGALOVIRUS ANTIBODY, [id number] 09:42:00 Test Item Value Reference Range Interpretation Comments CYTOMEGALOVIRUS IGM ANTIBODY Negative (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) (test code = 790) EBV-VCA ANTIBODY, [id number] 08:59:00 Test Item Value Reference Range Interpretation Comments JASE-WALL VCA IGG ([facility]) (test Positive code = 983) EBV-VCA ANTIBODY, [id number] 08:59:00 Test Item Value Reference Range Interpretation Comments JASE-WALL VCA IGM ([facility]) (test Negative code = 984) POCT-GLUCOSE [id number] 07:59:00 Test Item Value Reference Range Interpretation Comments POC-GLUCOSE METER 81 mg/dL 70-110 TESTED AT [place] [address] ([facility]) (test code = [facility] [address] 1538) COMPREHENSIVE METABOLIC [id number] 06:23:00 Test Item Value Reference Range Interpretation [...] S NOT APPLICABLE FOR DIALYSIS PATIEN TS. [id number] 06:17:00 Test Item Value Reference Range Interpretation Comments MAGNESIUM (BEAKER) (test code = 1.8 mg/dL 1.6-2.6 627) HEPATIC FUNCTION [id number] 06:17:00 Test Item Value Reference Range Interpretation [...] code = 779 U/L 6-55 H 347) [id number] 06:00:00 Test Item Value Reference Range Interpretation Comments FIBRINOGEN LEVEL (BEAKER) (test 390 mg/dl 225-434 code = 658) [id number] 06:00:00 Test Item Value Reference Range Interpretation Comments PARTIAL THROMBOPLASTIN TIME 40.2 seconds 22.5-36.0 H (BEAKER) (test code = 760) PROTHROMBIN [id number] 05:59:00 Test Item Value Reference Range Interpretation Comments PROTIME (BEAKER) (test code = 14.6 seconds 11.7-14.7 759) INR (BEAKER) (test code = 370) 1.2 <=5.9 RECOMMENDED COUMADIN/WARFARIN INR THERAPY RANGESSTANDARD DOSE: 2.0 - 3.0 Includes: PROPHYLAXIS forvenous thrombosis, systemic embolization; TREATMENT for venous thrombosis and/or pulmonary embolus.HIGH RISK: Target INR is 2.5-3.5 for patients with mechanical heart valves.POCT-GLUCOSE [id number] 21:46:00 Test Item Value Reference Range Interpretation Comments POC-GLUCOSE METER 153 mg/dL 70-110 H TESTED AT [place] [address] ([facility]) (test code = [place] [facility] [employer] 1538) [address] POCT-GLUCOSE [id number] 18:47:00 Test Item Value Reference Range Interpretation Comments POC-GLUCOSE METER 181 mg/dL 70-110 H TESTED AT [place] [address] ([facility]) (test code = [place] 1538) [address] POCT-GLUCOSE [id number] 12:40:00 Test Item Value Reference Range Interpretation Comments POC-GLUCOSE METER 178 mg/dL 70-110 H TESTED AT [place] [address] ([facility]) (test code = [place] [employer] 1538) [address] POCT-GLUCOSE [id number] 07:51:00 Test Item Value Reference Range Interpretation Comments POC-GLUCOSE METER 166 mg/dL 70-110 H TESTED AT [facility] 6720 (BEAKER) (test code = [place] [employer] 1538) [address] COMPREHENSIVE METABOLIC [id number] 03:26:00 Test Item Value Reference Range Interpretation [...] S NOT APPLICABLE FOR DIALYSIS PATIEN TS. [id number] 03:22:00 Test Item Value Reference Range Interpretation Comments MAGNESIUM (BEAKER) (test code = 1.4 mg/dL 1.6-2.6 L 627) HEPATIC FUNCTION [id number] 03:22:00 Test Item Value Reference Range Interpretation [...] code = 1009 U/L 6-55 H 347) [id number] 03:12:00 Test Item Value Reference Range Interpretation Comments AMMONIA (BEAKER) (test code = 348) 29 mol/L 18-72 [id number] 03:10:00 Test Item Value Reference Range Interpretation Comments PARTIAL THROMBOPLASTIN TIME 42.3 seconds 22.5-36.0 H (BEAKER) (test code = 760) PROTHROMBIN [id number] 03:09:00 Test Item Value Reference Range Interpretation Comments PROTIME (BEAKER) (test code = 16.4 seconds 11.7-14.7 H 759) INR (BEAKER) (test code = 370) 1.3 <=5.9 RECOMMENDED COUMADIN/WARFARIN INR THERAPY RANGESSTANDARD DOSE: 2.0 - 3.0 Includes: PROPHYLAXIS forvenous thrombosis, systemic embolization; TREATMENT for venous thrombosis and/or pulmonary embolus.HIGH RISK: Target INR is 2.5-3.5 for patients with mechanical heart valves.[id number] 03:09:00 Test Item Value Reference Range Interpretation Comments FIBRINOGEN LEVEL (BEAKER) (test 413 mg/dl 225-434 code = 658) CBC W/PLT COUNT & AUTO [id number] 03:09:00 Test Item Value Reference Range Interpretation [...] L 0.00-0.20 (test code = 417) 0.00POCT-GLUCOSE [id number] 22:33:00 Test Item Value Reference Range Interpretation Comments POC-GLUCOSE METER 230 mg/dL 70-110 H TESTED AT [facility] 6720 (BEAKER) (test code = [place] 1538) [address] POCT-GLUCOSE [id number] 18:17:00 Test Item Value Reference Range Interpretation Comments POC-GLUCOSE METER 222 mg/dL 70-110 H TESTED AT [facility] 6720 (BEAKER) (test code = [place] 1538) [address] COMPREHENSIVE METABOLIC [id number] 16:59:00 Test Item Value Reference Range Interpretation [...] PATIEN TS. PERIPHERAL BLOOD SMEAR - PATHOLOGIST [id number] 15:30:00 Test Item Value Reference Range Interpretation Comments RBC MORPHOLOGY Polychromasia ([facility]) (test code = 2846) RBC MORPHOLOGY Anisocytosis ([facility]) (test code = 84640) PERIPHERAL SMR REVIEW Cell counts confirmed ([facility]) (test code = 6370) [id number] Josefina Lara M.D. ([facility]) (test code = (electronic signature) 7483) PROTHROMBIN [id number] 15:12:00 Test Item Value Reference Range Interpretation Comments PROTIME ([facility]) (test code = 16.6 seconds 11.7-14.7 H 759) INR ([facility]) (test code = 370) 1.4 <=5.9 RECOMMENDED COUMADIN/WARFARIN INR THERAPY RANGESSTANDARD DOSE: 2.0 - 3.0 Includes: PROPHYLAXIS forvenous thrombosis, systemic embolization; TREATMENT for venous thrombosis and/or pulmonary embolus.HIGH RISK: Target INR is 2.5-3.5 for patients with mechanical heart valves.ANTI-NUCLEAR ANTIBODY (IVETTE)2017-01-04 14:32:00 Test Item Value Reference Range Interpretation Comments ANTI-NUCLEAR ANTIBODY (IVETTE) ([facility]) Negative Negative (test code = 418) POCT-GLUCOSE [id number] 12:47:00 Test Item Value Reference Range Interpretation Comments POC-GLUCOSE METER 212 mg/dL 70-110 H TESTED AT [facility] 6720 ([facility]) (test code = [place] 1538) [address] [id number] 12:34:00 Test Item Value Reference Range Interpretation Comments RPR SCREEN ([facility]) (test code = Nonreactive Nonreactive 420) CLOSTRIDIUM DIFFICILE TOXIN [id number] 10:12:00 Test Item Value Reference Range Interpretation Comments CLOSTRIDIUM DIFFICILE TOXIN, PCR Not Detected Not Detected ([facility]) (test code = 1525) This qualitative real-time [...] Comments FACTOR V ACTIVITY (BEAKER) (test code 86.0 % 60.0-150.0 = 665) Effective 10/24/2013: Reference Range Change-Adult onlyNew: 60.0-150.0 Previous: 50.0-150.0FACTOR 5 ACTIVITY (BLEEDING RISK)2017-01-04 09:13:00 Test Item Value Reference Range Interpretation Comments FACTOR V ACTIVITY (BEAKER) (test code 56.0 % 60.0-150.0 L = 665) Effective 10/24/2013: Reference Range Change-Adult onlyNew: 60.0-150.0 Previous: 50.0-150.0POCT-GLUCOSE [id number] 06:40:00 Test Item Value Reference Range Interpretation Comments POC-GLUCOSE METER 167 mg/dL 70-110 H TESTED AT [facility] 6720 ([facility] [facility]) (test code = JULIADENZEL [place] 1538) [address] COMPREHENSIVE METABOLIC [id number] 04:08:00 Test Item Value Reference Range Interpretation [...] ESTIM ATED GFR. Specimen slightly ictericHEPATIC FUNCTION [id number] 04:06:00 Test Item Value Reference Range Interpretation [...] 1091 U/L 6-55 H 347) Specimen slightly jhakoxbWKKWWFKUSR3372-65-55 04:01:00 Test Item Value Reference Range Interpretation Comments FIBRINOGEN LEVEL (BEAKER) (test 379 mg/dl 225-434 code = 658) [id number] 04:01:00 Test Item Value Reference Range Interpretation Comments PARTIAL THROMBOPLASTIN TIME 40.7 seconds 22.5-36.0 H (BEAKER) (test code = 760) PROTHROMBIN TIME/[id number] 04:00:00 Test Item Value Reference Range Interpretation [...] L 0.00-0.20 (test code = 417) 0.00POCT-GLUCOSE [id number] 00:19:00 Test Item Value Reference Range Interpretation Comments POC-GLUCOSE METER 159 mg/dL 70-110 H TESTED AT [facility] 6720 (BEAKER) (test code = [place] [facility] [employer] 1538) [address] POCT-GLUCOSE [id number] 18:56:00 Test Item Value Reference Range Interpretation Comments POC-GLUCOSE METER 192 mg/dL 70-110 H TESTED AT [place] [address] ([facility] (test code = [facility] Eduin [employer] 1538) [address] COMPREHENSIVE METABOLIC [id number] 16:55:00 Test Item Value Reference Range Interpretation [...] CALCULATE ESTIM ATED GFR. Specimen slightly ictericPROTHROMBIN TIME/[id number] 16:37:00 Test Item Value Reference Range Interpretation Comments PROTIME (BEAKER) (test code = 20.9 seconds 11.7-14.7 H 759) INR (BEAKER) (test code = 370) 1.8 <=5.9 RECOMMENDED COUMADIN/WARFARIN INR THERAPY RANGESSTANDARD DOSE: 2.0 - 3.0 Includes: PROPHYLAXIS forvenous thrombosis, systemic embolization; TREATMENT for venous thrombosis and/or pulmonary embolus.HIGH RISK: Target INR is 2.5-3.5 for patients with mechanical heart valves.HEPATITIS B SURFACE [id number] 14:05:00 Test Item Value Reference Range Interpretation Comments HEPATITIS B SURFACE ANTIBODY < mIU/mL <8.0 (BEAKER) (test code = 647) HEPATITIS B CORE ANTIBODY, [id number] 13:43:00 Test Item Value Reference Range Interpretation Comments HEPATITIS B CORE TOTAL ANTIBODY Nonreactive Nonreactive (BEAKER) (test code = 497) BLOOD GAS, [id number] 13:35:00 Test Item Value Reference Range Interpretation [...] code = 1819) 28.0 % URINALYSIS W/ [id number] 13:16:00 Test Item Value Reference Range Interpretation [...] 1584) SOURCE(BEAKER) (test code = Urine, [place] 2879) VITAMIN D, 36-RNQAELB0614-10-16 13:14:00 Test Item Value Reference Range Interpretation Comments VITAMIN D 25-OH (BEAKER) (test code = < ng/mL 13.0-47.8 L 2764) ALPHA FETOPROTEIN (AFP), TUMOR [id number] 13:06:00 Test Item Value Reference Range Interpretation Comments ALPHA-FETOPROTEIN (BEAKER) (test code < ng/mL <10.0 = 1094) Effective 05/08/2014: Reference Range ChangeNew: <10.0 Previous: 0.0-8.0 HEMOGLOBIN [id number] 13:05:00 Test Item Value Reference Range Interpretation Comments HEMOGLOBIN A1C (BEAKER) (test code = 7.6 % 4.3-6.1 H 368) CARCINOEMBRYONIC ANTIGEN (CEA)2017-01-03 12:59:00 Test Item Value Reference Range Interpretation Comments CARCINOEMBRYONIC ANTIGEN (BEAKER) 2.0 ng/mL 0.0-5.0 (test code = 685) [id number] 12:59:00 Test Item Value Reference Range Interpretation Comments FERRITIN (BEAKER) (test code = 1841 ng/mL 5-275 H 361) Effective 05/08/2014: Reference Range ChangeNew: Male 5-275 Previous: Male 22-322 Female 5-275 Female 28-819G92404-41-16 12:58:00 Test Item Value Reference Range Interpretation Comments T4 TOTAL (BEAKER) (test code = 895) 4.5 ug/dL 4.9-11.7 L [id number] 12:58:00 Test Item Value Reference Range Interpretation Comments THYROID STIMULATING HORMONE 1.79 uIU/mL 0.35-4.94 (BEAKER) (test code = 772) [id number] 12:58:00 Test Item Value Reference Range Interpretation Comments T3 TOTAL (BEAKER) (test code = 656) 34 ng/dL 48-159 L Effective 05/08/2014: Reference Range ChangeNew: 48-159 Previous: 60-181 CALCIUM, [id number] 12:47:00 Test Item Value Reference Range Interpretation Comments CALCIUM IONIZED (BEAKER) (test 1.05 mmol/L 1.12-1.27 L code = 698) PH, BLOOD (BEAKER) (test code = 7.43 1810) [id number] 12:42:00 Test Item Value Reference Range Interpretation [...] % 20-55 (test code = 2590) URIC [id number] 12:40:00 Test Item Value Reference Range Interpretation Comments URIC ACID (BEAKER) (test code = 16.0 mg/dL 2.6-7.2 H 773) Specimen slightly ictericLIPID [id number] 12:40:00 Test Item Value Reference Range Interpretation [...] 160-189 Very High >=190 Specimen slightly ictericBILIRUBIN, [id number] 12:40:00 Test Item Value Reference Range Interpretation Comments BILIRUBIN DIRECT (BEAKER) (test 2.4 mg/dL 0.1-0.5 H code = 706) GAMMA GLUTAMYL TRANSFERASE (GGT)2017-01-03 12:40:00 Test Item Value Reference Range Interpretation Comments GAMMA GLUTAMYL TRANSFERASE (BEAKER) 53 U/L 9-64 (test code = 364) Specimen slightly nfeksrzBISFNZE7859-26-94 12:39:00 Test Item Value Reference Range Interpretation Comments ETHANOL (BEAKER) (test code = 400) < mg/dL <=10 SCREEN, [id number] 12:36:00 Test Item Value Reference Range Interpretation Comments TEST URINE (BEAKER) (test Negative code = 583) POCT-GLUCOSE [id number] 12:34:00 Test Item Value Reference Range Interpretation Comments POC-GLUCOSE METER 189 mg/dL 70-110 H TESTED AT [facility] 6720 (BEAKER) (test code = JULIADENZEL LARA 1538) [address] HIV-1 ANTIGEN WITH HIV-1/2 [id number] 11:58:00 Test Item Value Reference Range Interpretation Comments HIV-1 ANTIGEN WITH HIV 1\\T\\2 Nonreactive Nonreactive ANTIBODY (2) (MADIE) (test code = 2586) TROPONIN [id number] 09:44:00 Test Item Value Reference Range Interpretation Comments TROPONIN I (BEAKER) (test code = 0.34 ng/mL 0.00-0.03 397) [...] Reference Range Interpretation Comments CREATINE KINASE TOTAL (CHANDNIAKER) 301 U/L 29-200 H (test code = 380) CREATINE KINASE-MB (BEAKER) (test 5.6 ng/mL 0.0-6.6 code = 750) CREATINE KINASE-MB INDEX (CHANDNIAKER) 1.9 % (test code = 395) Effective 05/08/2014: CK-MB Reference Range ChangeNew: 0.0-6.6 Previous: 0.0-4.9CK-MB Reference Range:<6.7 Normal6.7-10.0 Borderline>10.0 AbnormalACETAMINOPHEN [id number] 08:31:00 Test Item Value Reference Range Interpretation Comments ACETAMINOPHEN LEVEL (BEAKER) (test < ug/mL 10.0-30.0 L code = 344) TROPONIN [id number] 05:53:00 Test Item Value Reference Range Interpretation Comments TROPONIN I (BEAKER) (test code = 0.33 ng/mL 0.00-0.03 397) Effective 05/08/2014: Reference Range [...] acute neurological disease, and persistent tachyarrhythmia.BASIC METABOLIC [id number] 05:53:00 Test Item Value Reference Range Interpretation [...] TO CALCULA TE ESTIMATED GFR. Specimen slightly nzhsdmyBNFMTYVDSY1397-94-06 05:52:00 Test Item Value Reference Range Interpretation Comments PHOSPHORUS (BEAKER) (test code = 5.7 mg/dL 2.3-4.7 H 604) HEPATIC FUNCTION [id number] 05:52:00 Test Item Value Reference Range Interpretation [...] Specimen slightly ictericCREATINE KINASE (CK), TOTAL AND [id number] 05:52:00 Test Item Value Reference Range Interpretation Comments CREATINE KINASE TOTAL (BEAKER) 341 U/L 29-200 H (test code = 380) CREATINE KINASE-MB (BEAKER) (test 5.4 ng/mL 0.0-6.6 code = 750) CREATINE KINASE-MB INDEX (BEAKER) 1.6 % (test code = 395) Effective 05/08/2014: CK-MB Reference Range ChangeNew: 0.0-6.6 Previous: 0.0-4.9CK-MB Reference Range:<6.7 Normal6.7-10.0 Borderline>10.0 AbnormalCBC W/PLT COUNT & AUTO PKJSSEPOCMIM2504-24-27 05:48:00 Test Item Value Reference Range Interpretation [...] K/ L 0.00-0.20 (test code = 417) 0.69RCPMNICOLI8751-51-72 05:09:00 Test Item Value Reference Range Interpretation Comments FIBRINOGEN LEVEL (BEAKER) (test 427 mg/dl 225-434 code = 658) [id number] 05:09:00 Test Item Value Reference Range Interpretation Comments PARTIAL THROMBOPLASTIN TIME 36.2 seconds 22.5-36.0 H (BEAKER) (test code = 760) PROTHROMBIN TIME/[id number] 05:08:00 Test Item Value Reference Range Interpretation Comments PROTIME (BEAKER) (test code = 22.8 seconds 11.7-14.7 H 759) INR (BEAKER) (test code = 370) 2.0 <=5.9 RECOMMENDED COUMADIN/WARFARIN INR THERAPY RANGESSTANDARD DOSE: 2.0 - 3.0 Includes: PROPHYLAXIS forvenous thrombosis, systemic embolization; TREATMENT for venous thrombosis and/or pulmonary embolus.HIGH RISK: Target INR is 2.5-3.5 for patients with mechanical heart valves.HEPATITIS PANEL, [id number] 03:40:00 Test Item Value Reference Range Interpretation Comments HEPATITIS A IGM ANTIBODY (BEAKER) Nonreactive Nonreactive (test code = 498) HEPATITIS B CORE IGM ANTIBODY Nonreactive Nonreactive (BEAKER) (test code = 645) HEPATITIS C ANTIBODY (BEAKER) Nonreactive Nonreactive (test code = 367) HEPATITIS B SURFACE ANTIGEN (2) Nonreactive Nonreactive (BEAKER) (test code = 2585) CREATININE, RANDOM [id number] 03:18:00 Test Item Value Reference Range Interpretation Comments CREATININE URINE (BEAKER) (test 118.7 mg/dL code = 375) Reference Range: No NormalsSODIUM, RANDOM [id number] 03:18:00 Test Item Value Reference Range Interpretation Comments SODIUM URINE (BEAKER) (test code = 60 meq/L 243) Reference Range: No NormalsUREA NITROGEN, RANDOM [id number] 03:18:00 Test Item Value Reference Range Interpretation Comments UREA NITROGEN URINE (BEAKER) (test 303 mg/dL code = 538) Reference Range: No FsfrafiHMKLXFV7282-78-12 03:07:00 Test Item Value Reference Range Interpretation Comments AMMONIA (BEAKER) (test code = 348) 48 mol/L 18-72 S-[id number] 02:57:00 Test Item Value Reference Range Interpretation [...] within 95-100% range. URINALYSIS W/ REFLEX URINE [id number] 02:53:00 Test Item Value Reference Range Interpretation [...] = 514) SOURCE(BEAKER) (test code = 2795) [id number] 02:49:00 Test Item Value Reference Range Interpretation Comments PARTIAL THROMBOPLASTIN TIME 39.4 seconds 22.5-36.0 H (BEAKER) (test code = 760) PROTHROMBIN TIME/[id number] 02:48:00 Test Item Value Reference Range Interpretation Comments PROTIME (BEAKER) (test code = 22.0 seconds 11.7-14.7 H 759) INR (BEAKER) (test code = 370) 1.9 <=5.9 RECOMMENDED COUMADIN/WARFARIN INR THERAPY RANGESSTANDARD DOSE: 2.0 - 3.0 Includes: PROPHYLAXIS forvenous thrombosis, systemic embolization; TREATMENT for venous thrombosis and/or pulmonary embolus.HIGH RISK: Target INR is 2.5-3.5 for patients with mechanical heart valves.[id number] 02:48:00 Test Item Value Reference Range Interpretation Comments FIBRINOGEN LEVEL (BEAKER) (test 421 mg/dl 225-434 code = 658) BLOOD GAS, [id number] 02:43:00 Test Item Value Reference Range Interpretation [...] 21.0 % CBC W/PLT COUNT & AUTO DDFVGDDKQATQ7835-02-91 02:43:00 Test Item Value Reference Range Interpretation [...] code = 417) 0.00LACTIC ACID, VENOUS, WHOLE [id number] 02:35:00 Test Item Value Reference Range Interpretation Comments LACTATE BLOOD VENOUS (2) (BEAKER) 0.8 mmol/L 0.5-2.2 (test code = 2872) Effective 10/23/2015: Units/Reference Range ChangeNew: 0.5-2.2 mmol/L Previous: 5-20 mg/dLSpecimen slightly nfsxccyPOCMCXITLORT5067-21-44 11:32:0014.6[facility] OexxlboZNDYFEQJIXDO9294-54-84 11:32:0033[facility] FfnwfrxOVIDGSPIMQBA5852-84-76 11:32:008.3[facility] BbzvdxaWUJYCUPWFGSO3181-12-98 11:32:0081[facility] Vin TEZOLQYMCUCP0724-66-43 11:32:001.95[facility] GhlqfdkYPSKJVMSETPQ8045-21-15 11:32:0055[facility] VctewjpJHCNNTLJBLEX4162-66-11 11:32:0019[facility] ZZQEIKUTNBDO6454-85-99 11:32:41606Doweiubs VrgpyupZJXJXTWQFHGB5269-63-21 11:32:60890Bpqldkfn WqufmmdIZSABUGYXQZS4679-73-90 11:32:004.6[facility] Vin HDXEBNAAXV5344-23-58 11:32:0030.4[facility] HlarkyxFUIFCMOQOD0298-89-80 11:32:00 4.5[facility] XfzgoxrJEWSZNLEQM1257-42-17 11:32:0013.7[facility] HermannHEMATOLOGY 2016-07-30 11:32:002.6[facility] NmqibpsEWNXAFZXOM9110-85-76 11:32:000.7[facility] EafznuxRFWJIHZKXY8599-62-65 11:32:000.7[facility] VichaxbVNRPMPAADB0966-32-29 11:32:001.6[facility] MjrjcmnNJQPYQHPVA2459-42-22 11:32:000.2[facility] FEIWJUDUDF9364-50-25 11:32:0050.7[facility] AbbvybwBNSZOFLNMN1235-09-88 11:32:00 28.1[facility] CrkzcpnXLYUMSIQCH5390-52-56 11:32:003.39[facility] HermannHEMATOLOGY 2016-07-30 11:32:008.9[facility] PpcfmwtUSYEPJKCUL3674-97-89 11:32:005.1[facility] LsngnpfOLYZWEQSFU3474-17-73 11:32:0011.3[facility] UbcsbyvAKPUWDQMMV5665-75-71 11:32:72418Asqidvkb CwpfvjuBAHFSANGAJ5932-59-82 11:32:0031.8[facility] MZYUZEEHHX8449-45-93 11:32:0018.0[facility] TylcfssTCSWCWAQOF8357-30-86 11:32:00 83.0[facility] PfhdnirEGUNBIZQVX8285-97-98 11:32:00 Test Item Value Reference Range Interpretation Comments MCH (test code = MCH) 26.4 pg 27.0-31.0 [facility] IdhwskfWYWKPRIMJS8673-42-72 11:32:06256Nvbvbzvi HermannIMMUNOLOGY 2016-07-30 11:32:00Negative *NA*(07/30/16 5:32 AM)[facility] HermannIMMUNOLOGY 2016-07-29 11:05:00Negative *NA*(07/29/16 5:05 AM)[facility] HermannIMMUNOLOGY 2016-07-29 11:05:0092[facility] HermannCHEM AZZNC1222-54-71 15:50:0025[facility] HermannCHEM GGELS1598-78-66 15:50:0055[facility] HermannCHEM MZPTA8917-01-46 15:50:0023[facility]annCHEM YZJTC8329-33-21 15:50:80660Hcmzvecq HermannCHEM XBENY7730-44-87 15:50:65900Eqqbmukd HermannCHEM TEREE3026-78-91 15:50:004.0 [facility]annCHEM WOCPV6555-01-25 15:50:84857Ndwiufcz HermannCHEM PANEL 2016-07-28 15:50:0013.0[facility] HermannCHEM GAQJP1063-23-72 15:50:007.7[facility] HermannCHEM PHELN3742-97-36 15:50:002.49[facility] UfesyjyGFALKSDNUM9031-85-90 15:50:00 Test Item Value Reference Range Interpretation Comments PT (test code = PT) 14.8 s 12.0-14.7 [facility] FnapaqwSRAVUCGOCG9434-61-23 15:50:00 Test Item Value Reference Range Interpretation Comments PTT (test code = PTT) 40.8 s 22.9-35.8 [facility] BxpvadvKUZSVNBUFE9726-05-24 15:50:001.14[facility] HermannIMMUNOLOGY 2016-07-28 15:50:0094[facility] UrindjfSXLZUDZIVN1231-07-68 10:35:001.7[facility] FlsyxszOYYEMLYDFU8067-91-06 10:35:002.7[facility] NelioecQQLDYQVDJX7359-96-05 10:35:000.1[facility] PkugzibXLIOJYWZUK0801-15-57 10:35:000.7[facility] Vin JCZERHTVSX1180-04-91 10:35:0051.3[facility] EespanwIBTUKLLUAL7040-67-11 10:35:00 31.6[facility] EgblqtwHVGEFPXJGH0844-37-94 10:35:0014.1[facility] HermannHEMATOLOGY 2016-07-28 10:35:002.6[facility] VogaxcbYMXQVPJHYT0639-89-70 10:35:000.4[facility] IqbezhcVNBKOYAKNR4956-78-04 10:35:0029.3[facility] TxylottLCMOIMUJXE7750-37-44 10:35:009.2[facility] FivnfliCCHEUJDVPE3000-96-00 10:35:003.54[facility] Vin DSQNKXRAOI2600-72-75 10:35:005.3[facility] EpxiirnLEWHTOOWKL3803-68-41 10:35:0087 [facility] DuluklsDYVCKBDDFJ2919-44-95 10:35:0031.4[facility] HermannHEMATOLOGY 2016-07-28 10:35:0017.9[facility] BsaplvjFWHNPECQMM1744-43-36 10:35:0010.9[facility] CrhktmzXLGKOYXMRL2421-18-56 10:35:00 Test Item Value Reference Range Interpretation Comments MCH (test code = MCH) 26.0 pg 27.0-31.0 [facility] EmjdtsoWFESTFKBAM9544-91-77 10:35:0082.8[facility] HermannIMMUNOLOGY 2016-07-28 10:35:00Negative *NA*(07/28/16 4:35 AM)[facility] HermannCARDIAC ENZYMES 2016-07-27 10:22:95154Vuvchuyb HermannCHEM FLZVY4276-01-55 10:22:007.8[facility] HermannCHEM FEIUN7926-26-54 10:22:0021[facility] HermannCHEM RYKJC6803-80-42 10:22:69283Soirdhzy HermannCHEM QIIMI5782-74-60 10:22:003.8[facility] HermannCHEM AAUEP7632-72-09 10:22:63875Gbtisejg HermannCHEM XEUAK3243-99-83 10:22:000.4 [facility]annCHEM VCQVL3489-51-67 10:22:0074[facility] HermannCHEM PANEL 2016-07-27 10:22:0019[facility] HermannCHEM ATPUN4388-85-43 10:22:005.2[facility] HermannCHEM KCKXF2640-91-86 10:22:18759Tcigqgpx HermannCHEM EHJWW2919-33-95 10:22:44823Pqvljctr HermannCHEM YKRRY6951-73-92 10:22:001.8[facility] HermannCHEM IXEFU5616-19-08 10:22:0054[facility] HermannCHEM VDWDQ5263-07-05 10:22:70544 [facility] HermannCHEM KSKUM7883-25-72 10:22:003.11[facility] HermannCHEM PANEL 2016-07-27 10:22:0017[facility] HermannCHEM AJLFL7878-85-34 10:22:0016.8[facility] HermannCHEM OGIQT7436-83-47 10:22:003.4[facility] HermannCHEM PHVKJ9287-49-07 10:22:000.5[facility] HermannCHEM RLFEZ7140-06-69 10:22:002.0[facility] HermannCHEM YZPVP4958-24-78 10:22:003.7[facility] JfliataSEONICMHMG6709-01-02 10:22:0017.7 [facility] UczikjpNEXHSMWVTO8619-13-15 10:22:0032.9[facility] HermannHEMATOLOGY 2016-07-27 10:22:0025.4[facility] BhxczcoJIVLKPMPFD3518-65-66 10:22:00 Test Item Value Reference Range Interpretation Comments MCH (test code = MCH) 26.4 pg 27.0-31.0 [facility] CqgugtxFKAUKGESJI2766-75-42 10:22:0080.3[facility] HermannHEMATOLOGY 2016-07-27 10:22:0011.4[facility] QclhnfuEHWDLCWNAZ0247-72-54 10:22:0074[facility] SylsqusLNNUBBJHNZ3395-05-02 10:22:003.16[facility] JehgmnmCAJKYCAPEE2373-89-70 10:22:005.3[facility] WtaxadkENJQGWAGBT7209-88-88 10:22:008.4[facility] QXWLNNSTSX8303-35-25 10:22:0014.5[facility] GhpeqzySWVDIZVZHX5604-44-77 10:22:00 29.8[facility] JtbsglpGXRXLTLUDX2162-04-31 10:22:000.1[facility] HermannHEMATOLOGY 2016-07-27 10:22:000.8[facility] JmlfxagKLQYDTROYS7040-73-83 10:22:002.9[facility] NngzrhxOXGFJLSMUE6218-11-04 10:22:001.6[facility] RqhcntaXMAYOQHBFU6785-78-69 10:22:000.4[facility] JkqbunkOSJLQNHCYF7936-54-59 10:22:001.2[facility] LSZLJNCSEA0772-78-82 10:22:0054.1[facility] HermannSPECIAL VXFKENVGD3183-57-83 10:22:008.9[facility] HermannCARDIAC ECZEZLD9245-24-64 17:40:59032Dmsriqyn [place] ISAADJRZEH1488-16-16 17:40:00Positive *ABN*(07/26/16 11:40 AM)[facility] SBYHJWLWNC2818-41-78 17:40:00<0.2[facility] XnoyezsGQDHSMORFO1055-70-52 17:40:00<0.2[facility] PekesfyMGMKGEIEWB2433-33-89 17:40:00<0.2[facility] DbyfkicZKSHJZMMIF7720-20-64 17:40:00<0.2[facility] QfjymmyEJPHGIVSFG6243-66-94 17:40:00Negative (07/26/16 11:40 AM)[facility] KsystioXOVKOYNIZM8046-75-78 17:40:00 1:40 *ABN*(07/26/16 11:40 AM)[facility] HermannURINE DHWV2753-04-02 17:40:0021 [facility] VewpfyhMJRJUGDXDQ5775-94-82 14:00:001.11[facility] HermannHEMATOLOGY 2016-07-26 14:00:00 Test Item Value Reference Range Interpretation Comments PT (test code = PT) 14.5 s 12.0-14.7 [facility] NldwxzzWJSVIBAVFO3611-83-09 14:00:00Negative *NA*(07/26/16 8:00 AM) [facility] PwlgpndTNMELKHMVP1057-20-21 14:00:00Negative *NA*(07/26/16 8:00 AM) [facility] HvworyhJLTVYRTFBI7918-66-07 14:00:00Negative *NA*(07/26/16 8:00 AM) [facility] XktwyxhQPWPIVHZHT7523-20-73 14:00:00Negative *NA*(07/26/16 8:00 AM) [facility] HermannCHEM HTOCK0305-99-42 10:42:0017[facility] HermannCHEM PANEL 2016-07-26 10:42:248428Xpqsydam HermannCHEM UROZJ0750-62-44 10:42:000.5[facility] HermannCHEM IWLCJ1252-30-24 10:42:000.3[facility] HermannCHEM YYSJH8788-93-42 10:42:0079[facility] HermannCHEM BGLNW5786-79-29 10:42:21992Emipkfdu HermannCHEM WAYRB4922-74-44 10:42:005.5[facility] HermannCHEM ACIEG8558-10-72 10:42:003.7 [facility] HermannCHEM EVMKX3368-19-93 10:42:001.8[facility] HermannCHEM PANEL 2016-07-26 10:42:002.1[facility] QkwzbemMOVSVRHNXL6481-04-33 10:42:00Present *ABN*(07/26/16 4:42 AM)[facility] ZmlijbsJCSMBNRQZU9714-46-27 10:42:001+ *ABN*(07/26/16 4:42 AM)[facility] PcwurpdWRYTVRJMXO4861-41-32 10:42:000.1[facility] TudxyarYYJKPNMDQV8684-23-01 10:42:00Moderate *ABN*(07/26/16 4:42 AM)[facility] YlsunkbQBAWRYUEQN9707-79-96 10:42:0042[facility] HermannURINE AND CMMUS7133-17-78 16:34:001[facility]annURINE AND IZCHK9100-18-13 16:34:004[facility] URINE AND DNITV5141-54-55 16:34:00Negative (07/25/16 10:34 AM)[facility] URINE AND SCPES4635-52-22 16:34:00Negative (07/25/16 10:34 AM)[facility] URINE AND MTCEY5742-31-86 16:34:002[facility]annURINE AND HQRQO3659-51-93 16:34:006[facility]annURINE AND KDGCP6678-28-15 16:34:002.0[facility] URINE AND HZQJC0914-78-42 16:34:00Negative (07/25/16 10:34 AM)[facility] URINE AND QYJMJ2691-86-89 16:34:00Negative *NA*(07/25/16 10:34 AM)[facility] URINE AND FKQKI5859-97-78 16:34:001.012[facility]annURINE AND JWSKY8533-02-86 16:34:005.5[facility]annUR[facility] AND XDBPZ8919-83-62 16:34:00Slight *ABN*(07/25/16 10:34 AM)[facility]annUR[facility] AND QMJAX1129-71-10 16:34:00Dark Yellow *NA*(07/25/16 10:34 AM)[facility]ann[facility] AND LZWVC2234-04-01 16:34:009 [facility]annURINE RQIZ0531-03-77 16:34:0030[facility]annURINE CHEM 2016-07-25 16:34:003.1[facility]annURINE FOPC0701-05-58 16:34:88078.9[facility]annURINE UHZH9596-56-98 16:34:97238.00[facility] HermannCHEM AMSPC0330-15-28 08:55:002.0[facility]annCHEM COHWJ0103-54-86 08:55:005.2[facility] CARDIAC NKJKFUF0454-17-25 17:29:000.28[facility]annCARDIAC KKTKWKX6867-61-44 17:29:845429Dfvjaqwu HermannCARDIAC ILUPNAS6266-52-46 17:29:000.144[facility]AC YGXMFHG2137-57-06 17:29:000.2[facility]AC ENZYMES 2016-07-24 17:29:006.3[facility] ZJEZQBU3531-12-64 11:20:000.38 [facility] KDHYFJW5127-96-09 11:20:000.173[facility]AC AFPPPBM2278-09-38 11:20:000.2[facility]annC[facility]AC CFRGNNU1694-47-39 11:20:00 5.6[facility]annCHEM ZMCCJ8079-89-41 11:20:005.5[facility]annCARDIAC ZMLSGVF3070-49-46 06:18:20859Ecrtdesf HermannCARDIAC GVNMNYD5406-98-47 04:59:27 0.57[facility]annCARDIAC UZUJDEP1352-14-07 10:22:20253Twjrccmb HermannCHEM WADDT8269-77-57 10:22:002.1[facility]annCHEM CXOAT2087-47-58 10:22:43704 [facility]annCHEM WYHWT7352-17-69 10:22:0041[facility]annCHEM PANEL 2016-06-15 10:22:002.00[facility]annCHEM ICVKZ1587-22-63 10:22:009.0[facility]annCHEM VZXHP7231-02-82 10:22:77507Hyovuxag HermannCHEM RVBRB5525-26-28 10:22:0033[facility]annCHEM WRMDH2297-73-82 10:22:97456Gtmvnaiv HermannCHEM FGZKT1558-37-14 10:22:004.0[facility]annCHEM WFJFY9845-14-88 10:22:0032 [facility]annCHEM ZJYSU2902-61-65 10:22:0013.0[facility]annCHEM PANEL 2016-06-15 10:22:004.6[facility] EzjepobDWYIWIHHGX2373-45-74 10:22:003.68[facility] JulagfcHYNLTHWMJE7892-84-79 10:22:009.9[facility] TmsadjoYHXEWECOEX8950-38-89 10:22:00 Test Item Value Reference Range Interpretation Comments MCH (test code = MCH) 26.8 pg 27.0-31.0 [facility] OcnuyppBXOLLDJZFE5465-78-39 10:22:0034.2[facility]annHEMATOLOGY 2016-06-15 10:22:0078.3[facility] YskpdvrFCTSNCPNVC8147-40-93 10:22:0028.8[facility] MmpvfprLKWOPOCLPF2679-09-57 10:22:74123Qmjzcsxz GxwxzwmBSSESTXTUR3556-85-92 10:22:009.5[facility] HlqrwpyPDKVVQWYUX0105-69-16 10:22:0015.3[facility] Vin PFDNPMYKMC7980-15-19 10:22:005.6[facility] ExwmczfVCIVOWKMGV9341-56-34 10:22:000.5 [facility] RmumvmoQUUABQXAAL7066-05-91 10:22:001+ *ABN*(06/15/16 4:22 AM)[facility] TbdsnufSMNQSXQMAE5611-08-53 10:22:000.1[facility] FqxloxzPFONXOHIOC1600-80-08 10:22:0033.5[facility] YmezzlhDOOEBASCFQ6785-54-44 10:22:0047.6[facility] Vin SHTQKMNAHH3295-48-90 10:22:008.4[facility] XopffyhBMMYRNVYOT4472-72-12 10:22:009.4 [facility] YkhughaSZCRHOCRAX1157-10-91 10:22:002.6[facility]annHEMATOLOGY 2016-06-15 10:22:001.9[facility] MyxmeczEYMIVJQLNQ4015-12-21 10:22:001.1[facility] HwscptjXEFWKLQGHD1376-66-68 10:22:000.5[facility]annCHEM YWDSY4084-49-72 11:03:004.8[facility]annCHEM WCNLS2039-06-89 11:03:002.0[facility]annCHEM XXKRC9875-60-10 11:03:0032[facility]annCHEM RVQKQ8150-95-72 11:03:17665 [facility]annCHEM PYJSC4070-82-95 11:03:004.4[facility]annCHEM PANEL 2016-06-14 11:03:0037[facility]annCHEM QLIZX8336-57-57 11:03:07492Xcxgvdzl HermannCHEM MJPCB4468-55-12 11:03:002.00[facility]annCHEM BYQTP3664-63-83 11:03:67405Qjwxbdeq HermannCHEM TSAQV3568-33-14 11:03:008.7[facility]annCHEM IDPAG2646-89-89 11:03:0032[facility]annCHEM YOLIR0484-27-17 11:03:0013.4 [facility] MbintvvRUIVHXBWSH5951-16-31 11:03:0010.3[facility] HermannHEMATOLOGY 2016-06-14 11:03:000.1[facility] VjwxjmjFVDGXJSPDL1009-21-51 11:03:000.5[facility] YbgcdxjZVADNUFFLS7441-40-10 11:03:000.5[facility] ThgkzexBGDJXWOJRT3766-38-06 11:03:002.1[facility] TijymllBCWHKSGDMZ6357-65-73 11:03:001.2[facility] GUPYWOPFAM4666-56-72 11:03:001.9[facility] YlhnyfmCPMIXSAKRR1646-10-46 11:03:00 42.5[facility] BteuwvzOKUCHECTPW1363-58-03 11:03:0037.0[facility]annHEMATOLOGY 2016-06-14 11:03:009.0[facility] ZqocvucPIPVWOAHCA4301-73-18 11:03:009.8[facility] XxqhoqvYOTBMAGBGL7884-03-94 11:03:005.0[facility] PgqwimmJXZAMEBMWR8109-33-36 11:03:003.57[facility] HctrptbQDTUFVJTYC8122-93-82 11:03:009.4[facility] FDFMFWAUAI6998-67-43 11:03:0028.5[facility] CjckpytEIPBLGWXLF9165-44-35 11:03:00 183[facility] CivvcbkMCBDOQAORV9693-56-33 11:03:0079.9[facility] HermannHEMATOLOGY 2016-06-14 11:03:00 Test Item Value Reference Range Interpretation Comments MCH (test code = MCH) 26.3 pg 27.0-31.0 [facility] KfhfvdoMCJJKMLDWE7932-65-25 11:03:0033.0[facility] HermannHEMATOLOGY 2016-06-14 11:03:0015.9[facility]annURINE KRNJ9317-79-06 10:26:006.9[facility]INE WPSN3382-77-04 10:26:0019.30[facility] YSLJ2044-30-28 10:26:91633.1[facility] GgwxrsdQDYJFFLWAY2873-12-85 09:20:009.7[facility] JWPSFRATZO3381-62-52 09:20:11588Lvxejoif GoqcdsrISDORSMEDJ0476-33-45 09:20:00 15.9[facility] XnuzyqpUDUCORNLZL6036-90-16 09:20:0079.3[facility] HermannHEMATOLOGY 2016-06-13 09:20:0033.0[facility] YmombznTXNZKWUPHD3223-70-35 09:20:00 Test Item Value Reference Range Interpretation Comments MCH (test code = MCH) 26.2 pg 27.0-31.0 [facility] JoskikpPEMYGFFKHF5978-63-57 09:20:0029.4[facility] HermannHEMATOLOGY 2016-06-13 09:20:009.7[facility] XmattsiGCDLTNSLYO0688-46-22 09:20:003.70[facility] KnwhzejHVWXRMCXUY6500-36-09 09:20:005.7[facility] SzvaxcgWGLTXDYQXF9822-57-44 09:20:000.1[facility] NohbqyeQHPYBWYJPE3717-64-88 09:20:002.2[facility] CMWATRLNOC8663-30-17 09:20:000.5[facility] KdncnyoBYEEABMKHA2344-69-19 09:20:000.5 [facility] HqsreerCBNOQFSYBS8402-94-74 09:20:001.1[facility] HermannHEMATOLOGY 2016-06-13 09:20:002.3[facility] RpscpjlJGLEKDETMJ2836-31-39 09:20:009.5[facility] FvbfrpqCROOVDZAVA5678-13-55 09:20:009.0[facility] QuamzngNQLDNSBAWY3924-83-66 09:20:0038.9[facility] FowitwkVQPAURKNOO7935-76-37 09:20:0041.5[facility] CHEM GDZDK9785-08-05 06:34:001.7[facility] HermannCHEM HVPGC1573-05-65 06:34:004.2 [facility] SkunzpxTXOVJHIYEORS7537-14-90 06:34:0014.3[facility] HermannELECTROLYTES 2016-06-13 06:34:0041[facility] ZlpmjkaNOIMBNTFQYKK8849-87-44 06:34:53051Eoiirzhr UlfsqrtSUSGMNPDQLOO5083-13-67 06:34:008.5[facility] RcxlilzCEGUOOYLPTSD3648-57-01 06:34:0032[facility] JnveivwXUSACNNQDZAM2680-47-89 06:34:52161[facility]icrhae [place] VBVQJPXRSDFL3330-78-27 06:34:0037[facility] XqujxevAJEWQXLNLKZH4234-35-03 06:34:00 1.63[facility] UvqawdbHJXOTDYTLTMR4869-99-98 06:34:004.3[facility] URQTMFHZEJTC5182-13-59 06:34:88372Rtbgrgjr HermannCHEM KJVDR4166-42-10 16:21:00 48.0[facility] HfdawufYRLGQIYWYA3516-64-51 14:56:001:40 *ABN*(06/11/16 8:56 AM) [facility] PlxcmgkKVIYZSVAAO6333-37-29 14:56:00Negative *NA*(06/11/16 8:56 AM) [facility] VfxzthiZPRDVAEAVA2375-96-65 14:56:00Negative *NA*(06/11/16 8:56 AM) [facility] LzvyuikKUSAZDNVYQ8977-28-44 14:56:00Negative *NA*(06/11/16 8:56 AM) [facility] ZzclasfYMZMEWURVV8974-67-07 14:56:00Negative *NA*(06/11/16 8:56 AM) [facility] WntkcveGYQYLWZJWS9634-45-15 14:56:00Negative *NA*(06/11/16 8:56 AM) [facility] PmymopwZRLTXJWHYD0131-34-58 14:56:00Positive *ABN*(06/11/16 8:56 AM) [facility]annCHEM HEHXL9797-86-54 10:42:000.1[facility] HermannCHEM PANEL 2016-06-11 10:42:005.2[facility] HermannCHEM LUKQN2303-12-41 10:42:001.6[facility] HermannCHEM MKZRK6287-95-33 10:42:0020[facility] HermannCHEM BBFWA3900-19-42 10:42:003.6[facility] HermannCHEM BITYF0625-72-10 10:42:000.4[facility] HermannCHEM SPNGO9301-90-30 10:42:0074[facility] HermannCHEM DNREK5202-87-77 10:42:0014 [facility]annCHEM TYTVY1382-60-51 10:42:0013[facility]annHEMATOLOGY 2016-06-11 10:42:001.06[facility] UuuvdoaDPWIWAWMRX2970-27-68 10:42:00 Test Item Value Reference Range Interpretation Comments PT (test code = PT) 14.0 s 12.0-14.7 [facility] OfglmniTSXZWYRONB6438-06-47 10:42:00 Test Item Value Reference Range Interpretation Comments PTT (test code = PTT) 36.4 s 22.9-35.8 [facility]annSPECIAL HODIGCCOH7655-76-21 10:42:0010.5[facility] HermannCARDIAC YERCGUZ7387-55-28 02:08:001.8[facility] HermannCARDIAC XEDXDUH5721-84-27 02:08:00 2.9[facility] HermannCARDIAC DRRVHCZ9883-63-03 02:08:000.061[facility] CARDIAC RTWJVXW9065-63-65 02:08:41118Aoqagmxn HermannCARDIAC UPPOKWF8000-59-14 02:08:00<0.02[facility] HermannCHEM AXOFY6162-23-27 02:08:000.2[facility] CHEM JSCXH0183-54-22 02:08:000.1[facility] HermannCHEM XSGQE4641-44-58 02:08:000.1 [facility]annCHEM BSJCL5913-69-69 02:08:005.7[facility] HermannCHEM PANEL 2016-06-11 02:08:000.5[facility] HermannCHEM BAGSI8871-86-16 02:08:001.8[facility] HermannCHEM HOFKX4281-90-80 02:08:003.9[facility] HermannCHEM DYNEO9269-27-18 02:08:0099[facility] HermannCHEM QDLHV1256-55-23 02:08:0021[facility] HermannCHEM XGDCS1686-88-82 02:08:0017[facility] HermannDRUG DETRNM5995-16-76 02:08:00See Note *NA*(06/10/16 8:08 PM)[facility] HermannDRUG OUGFEO1989-47-28 02:08:00Negative *NA*(06/10/16 8:08 PM)[facility] HermannDRUG WNHXXC0128-02-91 02:08:00Negative *NA*(06/10/16 8:08 PM)[facility] HermannDRUG XDQXMB8149-42-71 02:08:00Negative *NA*(06/10/16 8:08 PM)[facility] HermannDRUG UAEPQS2932-05-77 02:08:00Negative *NA*(06/10/16 8:08 PM)[facility] HermannDRUG HJWGRQ1252-08-74 02:08:00Negative *NA*(06/10/16 8:08 PM)[facility] HermannDRUG VMDGOK7088-83-96 02:08:00Negative *NA*(06/10/16 8:08 PM)[facility] HermannDRUG MPZQSD0140-74-10 02:08:00Negative *NA*(06/10/16 8:08 PM)[facility] HermannDRUG OYQJMC0911-72-31 02:08:00Negative *NA*(06/10/16 8:08 PM)[facility] HermannDRUG FEYRVX5237-13-50 02:08:00Negative *NA*(06/10/16 8:08 PM)[facility] KlkzvmtPPYJYX9004-98-47 02:08:0075[facility] JyooresFNNBYG9749-86-10 02:08:0027[facility] QamxnwdUMYJVU4404-30-51 02:08:92361 [facility] VjhcsuiKSXTRZ4339-89-44 02:08:50226Ivotngor XpexdllMTEJPM1202-84-52 02:08:004.29[facility] AcsvbuoBOZBMK3570-84-69 02:08:0031[facility]annURINE AND DJOWI4764-75-82 02:08:006.0[facility]annURINE AND NEGWL4751-10-25 02:08:00 Negative (06/10/16 8:08 PM)[facility] AND AKQQY3261-32-99 02:08:00 Trace *ABN*(06/10/16 8:08 PM)[facility] AND XNWVS5951-09-51 02:08:00 Negative *NA*(06/10/16 8:08 PM)[facility] AND RJUWL6971-46-40 02:08:004[facility] AND YEXXZ2097-85-04 02:08:005[facility] URINE AND INHCV9784-51-53 02:08:00Small *ABN*(06/10/16 8:08 PM)[facility] URINE AND WVYVC2293-29-92 02:08:001[facility] AND KTHZE0088-96-25 02:08:001.009[facility]UR[facility] AND DYSEC3093-58-09 02:08:00Yellow *NA*(06/10/16 8:08 PM)[facility] AND TXVDB3809-75-18 02:08:00Clear (06/10/16 8:08 PM)[facility] VEQN1242-58-19 02:08:00Negative (06/10/16 8:08 PM)[facility] HTKW0605-96-67 02:08:37639.4[facility]INE OFHQ9401-70-62 02:08:005.4[facility]INE ZEPP1728-17-39 02:08:0069.80[facility] HermannCARDIAC WFNVZMW9075-93-99 16:53:701728Cglsannq HermannCARDIAC AOIXXDN6200-53-31 16:53:00<0.02[facility] HermannCHEM PANEL 2014-06-26 13:02:000.9[facility] OiapzbmYWKEZVRCHI6499-83-30 12:29:4410[facility] SfyspcsXINWNTKPUYHWX5540-99-30 11:21:271[facility] HermannCHEM KDXTO4376-24-67 11:21:0014[facility] HermannCHEM NAKJU5814-90-35 11:21:0019.4[facility] HermannCHEM DSCPV9707-82-44 11:21:0081[facility] OlmmzzvWVFHXYHVVB5634-60-51 11:21:000.0 [facility] RuwahlsRQIKEVIXER4302-06-93 11:21:001+ *ABN*(06/26/14 5:21 AM)[facility] YlhcmrfGVCMGPRKDF0333-02-36 11:21:000.6[facility] QmuymniQLZKUPHJYZ6462-23-03 11:21:000.1[facility] CybszusKZQTUTZOEI3338-16-00 11:21:002.5[facility] LBRYMSETGA5665-09-78 11:21:0063.3[facility] UswinriOULKDLROCY2413-29-21 11:21:00 5.6[facility] SptwiulCSONUELNQN9300-87-37 11:21:000.0[facility] HermannHEMATOLOGY 2014-06-26 11:21:000.9[facility] FglxptwHOBAJERDBA8025-36-13 11:21:007.0[facility] CtuteklHAQGQQURQQ0489-31-08 11:21:0028.8[facility] AstliwaOQKCRBCSGM5098-36-21 11:21:008.8[facility] QyezcbfXEUPMWOCHR8481-22-49 11:21:005.19[facility] NZGNJPZIER3122-86-91 11:21:0014.4[facility] JajztgnZMSGEYJWIX9425-51-62 11:21:00 43.1[facility] EygrktcYGUDFOTWPO7352-70-21 11:21:0083.1[facility] HermannHEMATOLOGY 2014-06-26 11:21:00 Test Item Value Reference Range Interpretation Comments MCH (test code = MCH) 27.8 pg 27.0-31.0 [facility] PmdohlyWDVGPAONXC9872-36-38 11:21:0013.1[facility] HermannHEMATOLOGY 2014-06-26 11:21:0033.5[facility] LhzwhsaDZWVKEXGAD1527-63-78 11:21:70730Qjxcylne FchmmsoDBVZNLROJC2494-26-74 11:21:0010.4[facility] HermannCHEM JFREH5767-79-72 11:21:003.2[facility] HermannCHEM ALEPZ3116-40-80 11:21:006.6[facility] HermannCHEM YXBHX6964-42-82 11:21:000.6[facility] HermannCHEM MOSKL4208-89-05 11:21:0059 [facility]annCHEM YATIU7215-45-18 11:21:0011[facility] HermannCHEM PANEL 2014-06-26 11:21:0017[facility] HermannCHEM DGEVL1766-13-63 11:21:0099[facility] HermannCHEM WJQLB0839-00-46 11:21:40737Lkzyxrhs HermannCHEM OKOST3776-07-75 11:21:003.4[facility] HermannCHEM DKCRT9508-85-12 11:21:0011[facility] HermannCHEM LWMDI4613-72-07 11:21:000.8[facility] HermannCHEM QXRNE5801-63-53 11:21:21615 [facility]annCHEM XJEUA0010-16-75 11:21:0094[facility] HermannCHEM PANEL 2014-06-26 11:21:009.1[facility] HermannCHEM THXWV1689-09-12 11:21:0024[facility] HermannCHEM CXVES9695-18-03 11:21:000.9[facility] HermannCHEM CCGPO9706-33-41 11:21:003.4[facility] MttfeuaWNRYGZTKQT2818-62-00 04:48:55Performed (04/14/2013 23:48:55)[facility] CqsvyeeUOMTOEGMBI5291-61-28 04:48:55Negative *NA*(04/14/2013 23:48:55)[facility] UkqojpcGRURHFPQNC8304-62-26 04:48:55Trace *ABN*(04/14/2013 23:48:55)[facility] UqtwkdsECCJVPAIFU8585-95-13 04:48:55Negative (04/14/2013 23:48:55)[facility] QxkzjxzSSAUUKRTKR8246-04-74 04:48:550.2[facility] UNHXFJRMEK1822-21-43 04:48:55Negative (04/14/2013 23:48:55)[facility] QTDTXLIVNC9023-14-11 04:48:55Negative (04/14/2013 23:48:55)[facility] TTNJTGYQFG3771-62-19 04:48:55Clear (04/14/2013 23:48:55)[facility] WEFLZFUJKF8993-11-49 04:48:55Yellow *NA*(04/14/2013 23:48:55)[facility] Vni PXMWPUBNBT5133-29-33 04:48:55 Test Item Value Reference Range Interpretation Comments UA pH (test code = UA pH) 7.0 1 5.0-8.0 N [facility] DoaeikkPWVSQXLMGJ4345-90-38 04:48:55 Test Item Value Reference Range Interpretation Comments UA Spec Grav (test code = UA Spec 1.025 1 N Grav) [facility] QbwunuoDWCKYAVIEH0823-05-99 04:48:55Trace *ABN*(04/14/2013 23:48:55) [facility] ItmohcqGBMOVZBYU3208-68-23 04:28:00Negative *NA*(04/14/2013 23:28:00) [facility] VqzjeldOAVSQREES3051-68-55 04:28:01164Sdcvfqdr HermannCHEMISTRY 2013-04-15 04:28:004.1[facility] UsmeqbaYJAZBRLMP9456-81-94 04:28:0010.5[facility] CynhodeSEQMJJTJM1072-48-58 04:28:006[facility] RiumzveKKTKAVVII7152-81-33 04:28:00 0.7[facility] EmeluhcPAWWHADVH8870-38-93 04:28:67576Hrubgybe HermannCHEMISTRY 2013-04-15 04:28:002.9[facility] WhnzbuhMXEUFGWFM3031-89-48 04:28:0020[facility] QdzcckjDMUFVQNMO7902-20-87 04:28:000.5[facility] NpdozguZBYTETDTV1281-78-36 04:28:0089[facility] FbvtnhdOKLZJHGMQ0262-58-38 04:28:0011[facility] TPJYJUUPZ1173-66-93 04:28:000.5[facility] PxvdvfsPXZADRSZI0904-69-14 04:28:003 [facility] SxwfdkhGRERPEBNF8247-83-61 04:28:10397Urbsgzlt HermannCHEMISTRY 2013-04-15 04:28:007.0[facility] YgthjzoITSITTYZI6032-10-30 04:28:008.7[facility] PbkbqmcGTYHUUUMB9638-66-06 04:28:0029[facility] CwqefhtMQAHXHHRE1587-16-19 04:28:81228Czhenoup PyaewvzYZEGMBEQB1768-65-33 04:28:003.5[facility] RUZSDKKIK8312-14-02 04:28:87664Zipieoye UblhzenODIPHRUVJN8321-71-66 04:28:00 Test Item Value Reference Range Interpretation Comments PROTIME (test code = PROTIME) 12.1 s 12.0-14.7 N [facility] AooyjwpTJBJBXHPON8764-49-02 04:28:00 Test Item Value Reference Range Interpretation Comments aPTT (test code = aPTT) 39.0 s 22.9-35.8 H [facility] UldszknCDGXBBLGWT1505-55-07 04:28:000.90[facility] HermannHEMATOLOGY 2013-04-15 04:28:00 Test Item Value Reference Range Interpretation Comments MCH (test code = MCH) 29.4 pg 27.0-31.0 N [facility] VhrfmzpMFKQVCQFXS1794-02-78 04:28:0086.1[facility] HermannHEMATOLOGY 2013-04-15 04:28:0029.4[facility] FxubtocQSIHSGUAUY7851-44-88 04:28:0014.0[facility] LvdgatbMOKCHATMAO0728-81-59 04:28:006.2[facility] BnirvanPESHHFFXOD4178-58-60 04:28:48183Ahzgveir PbmbcmaCNRRIJAIXU2476-80-98 04:28:0034.1[facility] HCILBBSBKA2355-55-65 04:28:003.41[facility] SfeuobyHRXEOJVTUZ6776-85-19 04:28:00 10.0[facility] UmzkwziSEUMZWRUUG0529-01-67 04:28:0010.1[facility] HermannHEMATOLOGY 2013-04-15 04:28:004.4[facility] PxdswrpHSDUNUQNUR6796-85-17 04:28:000.7[facility] SsthjhjYSJVQFSWOC3283-50-09 04:28:0070.7[facility] ZvpilozUPMCVHJAIF8365-96-11 04:28:000.3[facility] BruihtzOLCZLDUYMJ7540-81-63 04:28:001.2[facility] BNLPRRXKPM5256-69-85 04:28:004.5[facility] AhksabnBPRGULEQXC7386-24-31 04:28:004.1 [facility] TpfasrcAGUQWGTSYG4169-15-03 04:28:0020.0[facility] HermannHEMATOLOGY 2013-04-15 04:28:000.0[facility] VxggbivPHTKLCDKKO4240-60-70 04:28:000.3[facility] HermannBEDSIDE GLUCOSE TWAQWHN1249-97-30 01:12:24634Mcflippw HermannURINALYSIS 2012-03-14 23:40:00Trace *ABN*(03/14/2012 18:40:00)[facility] HermannURINALYSIS 2012-03-14 23:40:00 Test Item Value Reference Range Interpretation Comments UA pH (test code = UA pH) 6.0 1 5.0-8.0 N [facility] EzujxkmXKSKLUQCWA1396-57-73 23:40:00>=80 mg/dL *NA*(03/14/2012 18:40:00)[facility] ZjreerhHZBXMFXFSK4797-22-18 23:40:00>=1000 mg/dL *ABN*(03/14/2012 18:40:00)[facility] CuyetahQFIBGTBNYY8679-79-11 23:40:00Negative (03/14/2012 18:40:00)[facility] TukcpgcFLEJBTJYKR2099-71-75 23:40:00Negative (03/14/2012 18:40:00)[facility] IgyyepcJFBBRQXTSD0804-54-68 23:40:000.2[facility] JysetmzIDMUJSBVCN7137-73-11 23:40:00Negative (03/14/2012 18:40:00)[facility] WfvqrbmGZOITBWXVU2423-83-33 23:40:00Negative *NA*(03/14/2012 18:40:00)[facility] MlvnjfiJIZVGTLOMU3991-32-81 23:40:00Clear (03/14/2012 18:40:00)[facility] UQZVPHSROZ0927-83-67 23:40:00Yellow *NA*(03/14/2012 18:40:00)[facility] YVEOCXUBCY4088-10-69 23:40:00>=1.030 *ABN*(03/14/2012 18:40:00)[facility] PypqzffVCCBMPUPRV6870-53-48 23:40:00Occasional /LPF (03/14/2012 18:40:00) [facility] EjazhsyBHCZPIXCXN1638-01-51 23:40:003-5 /HPF (03/14/2012 18:40:00) [facility] YcacqphUHSQEXPOIV1938-19-22 23:40:00Occasional /HPF (03/14/2012 18:40:00)[facility] VfhzndqZAFXOICUC1726-84-60 22:50:00Negative *NA*(03/14/2012 17:50:00)[facility] FrybrifXHLDUDEIC4765-81-80 22:50:0045[facility] HermannCHEMISTRY 2012-03-14 22:50:001.2[facility] SvjqiyqJOMXKNEOP9650-92-53 22:50:003.8[facility] MqekgaiKXCQTUNDT2649-10-93 22:50:0021[facility] MxrbrbdFYPBHLLZN3052-46-12 22:50:0016.8[facility] GnhubklMLZYIHMAX4815-35-47 22:50:001.1[facility] AKCUMCIDD8465-68-64 22:50:008.2[facility] StbqmybNSYZIWOBV8155-02-85 22:50:003.8 [facility] BtvoygiGCCZYGFTW4545-98-62 22:50:000.7[facility] HermannCHEMISTRY 2012-03-14 22:50:96019Fxiijsew OowtqgzHBVQSOCXP9242-83-66 22:50:0099[facility] DfqrwzgZVLKURHKH8556-86-72 22:50:0027[facility] KiieyhfLEXPITHQP7847-75-60 22:50:13698Zzlrjuss DooyypeVXLZTDSDL6057-22-77 22:50:0015[facility] JIMYGIVCY5663-88-31 22:50:0024[facility] RfdnhifYUYVPETEQ0347-84-93 22:50:0020 [facility] WgpzfnvGNPQZNNEC6488-65-52 22:50:0067[facility] HermannCHEMISTRY 2012-03-14 22:50:004.4[facility] TzzcgbrRAJVKCMUO1428-25-30 22:50:009.9[facility] SzatrhbOFASYNSRZI7659-51-93 22:50:0011.8[facility] TpvlbufKPBSUCDNWA4902-09-35 22:50:0035.9[facility] AwuvuyzJUXJMCNUOP5317-44-46 22:50:00 Test Item Value Reference Range Interpretation Comments MCH (test code = MCH) 31.2 pg 27.0-31.0 H [facility] BwjjekwBHJTXBCDHR5026-18-78 22:50:65616Spsjlryr HermannHEMATOLOGY 2012-03-14 22:50:0013.1[facility] QqwqgtiZDRDPQTNQF1879-81-69 22:50:0040.7[facility] VtdgghpNTPSKGHLTH5053-43-03 22:50:0014.6[facility] LpzpiebJENDDPIOXG7531-66-15 22:50:0087.0[facility] AgemcbeYDYBSHGVVO1881-11-66 22:50:0011.7[facility] DKOHXGDFVX7415-49-24 22:50:004.68[facility] SpwtcmcNHPNHGOYIV7524-94-06 22:50:00 0.0[facility] TaykfhtZSSGSHPACK0228-98-85 22:50:000.2[facility] HermannHEMATOLOGY 2012-03-14 22:50:000.0[facility] JrebzbwLHLNONPYYN7992-39-79 22:50:000.4[facility] QxbbanjJATCEDWQLH1739-25-90 22:50:0010.6[facility] QchfjvpWSYJEVGXZZ8020-43-17 22:50:000.7[facility] UjxulymAWBNISNAHU0161-45-17 22:50:003.4[facility] SXPBPRFWOG2204-77-73 22:50:00Normal (03/14/2012 17:50:00)[facility] MYTWCLKCPA5272-78-61 22:50:006.0[facility] HfgkzqvUVTQUPFFLR0720-84-73 22:50:000.0 [facility] ChildrenJhflwwcWYIKTAADBF1406-00-01 22:50:0090.4[facility] HermannHEMATOLOGY 2012-03-14 22:50:00Normal (03/14/2012 17:50:00)[facility] ChildrenannBEDSIDE GLUCOSE LXMUYOA3899-73-61 23:43:68898Ssjwzuvn HermannBEDSIDE GLUCOSE PLJYXSI9608-34-76 17:40:30102Rlxefjqp HermannBEDSIDE GLUCOSE FVTDPAI0863-47-19 13:34:15329Aggffnxv IlzrmezLAPDAHMDP6103-98-23 00:00:00Negative (11/28/2011 19:00:00)[facility]WwucvpsMTBMVJXXJQ4501-36-64 00:00:00Performed (11/28/2011 19:00:00)[facility]EqfpawiOQGXKYJXLG9027-82-15 00:00:00Occasional /LPF (11/28/2011 19:00:00) [facility] CenterJossekuPCXQWDXCJI8562-67-44 00:00:00None Seen (11/28/2011 19:00:00) [facility] CenterQglkytdMDBZFPBRFK6497-86-13 00:00:00Negative mg/dL (11/28/2011 19:00:00)[facility] CenterZonghkpJKHTOSUWNV6761-82-50 00:00:00 Test Item Value Reference Range Interpretation Comments UA pH (test code = UA pH) 7.0 1 5.0-8.0 N [facility] ChildrenFiugohmYSMGJHDRMI8100-55-02 00:00:00 Test Item Value Reference Range Interpretation Comments UA Spec Grav (test code = UA Spec 1.020 1 N Grav) [facility]vineDifcsebSTGSILOSQW2645-30-38 00:00:00Clear (11/28/2011 19:00:00)[facility] CenterWqrkpulQUJQISNTWC5175-57-10 00:00:00Yellow *NA*(11/28/2011 19:00:00)[facility]vineWryjopyIJVQVDTUIG7811-56-10 00:00:000.2[facility] ZxamkqnHHFXLDWYDZ3942-65-11 00:00:00Negative (11/28/2011 19:00:00)[facility] AqqrjjeIJJIJJRYKO9425-63-57 00:00:00Negative *NA*(11/28/2011 19:00:00)[facility] FcdowmtQQBIMUBFOW9163-85-06 00:00:00>=80 mg/dL *ABN*(11/28/2011 19:00:00)[facility] HermannURINALYSIS 2011-11-29 00:00:00>=1000 mg/dL *ABN*(11/28/2011 19:00:00)[facility] SRQZYQFPDF3965-63-87 00:00:00Negative (11/28/2011 19:00:00)[facility] XBBKLESRWU6713-51-33 00:00:00Negative (11/28/2011 19:00:00)[facility] ZTEGZHODL6576-33-80 20:41:0060[facility] UpwiiwfQAJXBEKGR2969-17-74 20:41:0041 [facility] OaiztijMFRKSFJMT2382-02-42 20:41:007.45[facility]annCHEMISTRY 2011-11-28 20:41:0037.0[facility] KcfoeqmWOPUGYHYK5347-31-62 20:41:0092.0[facility] NwjuonoBBRNIWSDI2671-01-97 20:41:004[facility] VdrkuplVBCBZYBWA2546-97-82 20:41:00 28.5[facility] HlpiywsJCSPERLPA1872-72-36 20:00:001.6[facility]annCHEMISTRY 2011-11-28 20:00:96348Qkejlted FfouwrjUFQENIUPL2200-68-63 20:00:004.2[facility] SypycrmFXJHWAKFX8466-80-13 20:00:0023[facility] CnjmklnCQHBPDWLN8327-13-11 20:00:0098[facility] IjkhhzfUGGNYDACA3959-93-65 20:00:003.8[facility] XLEBVGIJJ4500-09-96 20:00:56928Pvtnvcmn EnlfphrKBMHBHINE4591-91-77 20:00:000.7 [facility] FubtdydRLPICSYMF7467-78-93 20:00:009[facility] ZocyzcwJAFJYQEGG7175-12-54 20:00:96282Ykucqjei XkexhubANFGYYGHB1223-04-37 20:00:0013[facility] CROUJSOQN7073-53-56 20:00:0020.8[facility] HlctzdyGHSCDTYKN6072-55-45 20:00:009.3 [facility] CuhcswcYTPJXSUHN5870-95-32 20:00:006.7[facility]annCHEMISTRY 2011-11-28 20:00:001.7[facility] UphzvczOXQZEHKPV1569-66-49 20:00:002.5[facility] YsjtcrhIJYDLHTMZ5318-97-08 20:00:0018[facility] JdxnpgtRDNEYICSL7132-25-96 20:00:0062[facility] YywtdedSFSXXCYNN8706-91-94 20:00:0032[facility] QNDITDRZZ6599-70-12 20:00:000.7[facility] MwprgfbHCZNNCRCLW4725-65-88 20:00:001+ *ABN*(11/28/2011 15:00:00)[facility] MhksdrvCMQCIIDAXX1066-02-44 20:00:000.1 [facility] HauhwweIFYCIBEJXT4315-96-55 20:00:000.0[facility]annHEMATOLOGY 2011-11-28 20:00:000.0[facility] MhqwecrWAIXKHIRPA3995-69-09 20:00:00Slight *ABN*(11/28/2011 15:00:00)[facility] ZlcolfsWBUKZQJOWH0389-06-71 20:00:00Slight *ABN*(11/28/2011 15:00:00)[facility] CdzwdvsQIOZNIODIE6795-10-94 20:00:005.7 [facility] JgkhvyrTCITPUOKZA8225-16-02 20:00:000.8[facility]annHEMATOLOGY 2011-11-28 20:00:000.2[facility] QtuwhqvQFFFPIOZNI9443-24-69 20:00:000.0[facility] NbaebpkVDCTPQHSRO5889-45-15 20:00:001.9[facility] HqjgxupHJEISGYWJV2711-48-62 20:00:0086.2[facility] SyltyoePIJXYNRDDK1338-60-07 20:00:0011.7[facility] WUUGUZGSOK4812-71-28 20:00:0010.8[facility] MbeuejfHJGXWNIATD0730-31-97 20:00:00 161[facility] FlqdyelNMWQQKILQR9511-75-72 20:00:0035.6[facility]annHEMATOLOGY 2011-11-28 20:00:0012.4[facility] ZdlkutaYLUGDNMLTO0383-41-75 20:00:00 Test Item Value Reference Range Interpretation Comments MCH (test code = MCH) 30.7 pg 27.0-31.0 N [facility] AcffbwhLHKEGSKHKL2297-28-97 20:00:0086.1[facility]annHEMATOLOGY 2011-11-28 20:00:0033.6[facility] VvynzfaTXBVSAPFSI2108-67-03 20:00:0012.0[facility] CgntkryZMTGCQWEKB5741-85-74 20:00:003.90[facility] HtsrbfiVWYOQBBBRN3163-64-46 20:00:006.6[facility] SvkhfzzEYWHDICST9576-21-03 19:51:00See Note 5*NA*(11/28/2011 14:51:00)[facility] OfgmfgwGDOUMIKTE9383-62-40 19:51:00Negative *NA*(11/28/2011 14:51:00)[facility] DytjzmkBBPHFPTTU6641-53-40 19:51:00Negative *NA*(11/28/2011 14:51:00)[facility] HrmmlhuKSUOGTSXY6429-19-76 19:51:00Negative *NA*(11/28/2011 14:51:00)[facility] TwynmtqKKXBLYLCW0816-47-17 19:51:00Negative *NA*(11/28/2011 14:51:00)[facility] UspjwenDLJCSXPKU5982-78-29 19:51:00Negative *NA*(11/28/2011 14:51:00)[facility] XbvqzjiPPJSLJOAT6436-24-22 19:51:00Negative *NA*(11/28/2011 14:51:00)[facility] OlnnqdtUWKZCIMPI9182-96-61 19:51:00Negative *NA*(11/28/2011 14:51:00)[facility] UVAVXMS1643-41-58 16:20:58291Lyncuewb ZrocvyeDVYUIECTX1752-99-02 15:30:00Negative (09/18/2011 10:30:00)[facility] KzyppyjLPWQHLGGQL5023-77-50 15:30:00None Seen (09/18/2011 10:30:00)[facility] TadupczETCHWOFVGQ4721-51-11 15:30:00None Seen (09/18/2011 10:30:00)[facility] UmqfrwgSICXPKNCPM4307-45-10 15:30:00None Seen (09/18/2011 10:30:00)[facility] ChildrenKpguqwfBQZAMXWPCO7765-62-24 15:30:00Few /HPF *ABN*(09/18/2011 10:30:00)[facility] OnlhghuAVKPWAGJMR8565-14-75 15:30:00Performed (09/18/2011 10:30:00)[facility] ChildrenEuscxtjYPPIUZTFFW5887-14-50 15:30:00Rare /LPF (09/18/2011 10:30:00)[facility] ChildrenQbzmxdfCLNRNIGELN0011-95-18 15:30:0015 mg/dL *ABN*(09/18/2011 10:30:00)[facility] ChildrenDmopddfJIQKVKOMCO8587-92-82 15:30:00>=1000 mg/dL *ABN*(09/18/2011 10:30:00) [facility] ChildrenVtvpbkpOAOSNVLQPW3953-81-65 15:30:00Trace *ABN*(09/18/2011 10:30:00) [facility] ChildrenTsetykmVZBJPRZWIY1606-01-46 15:30:000.2[facility]annURINALYSIS 2011-09-18 15:30:00Negative (09/18/2011 10:30:00)[facility] HermannURINALYSIS 2011-09-18 15:30:00Negative *NA*(09/18/2011 10:30:00)[facility] HermannURINALYSIS 2011-09-18 15:30:00Negative (09/18/2011 10:30:00)[facility] HermannURINALYSIS 2011-09-18 15:30:00Negative (09/18/2011 10:30:00)[facility]annURINALYSIS 2011-09-18 15:30:00 Test Item Value Reference Range Interpretation Comments UA pH (test code = UA pH) 7.5 1 5.0-8.0 N [facility] XwvjyyaOUCUJOTVXL5168-33-27 15:30:00 Test Item Value Reference Range Interpretation Comments UA Spec Grav (test code = UA Spec 1.010 1 N Grav) [facility] AvvohqaPWNZSAGSHT8298-98-01 15:30:00Slight Cloudy (09/18/2011 10:30:00) [facility] MgggjqbKRCTNYFJYB8706-45-08 15:30:00Yellow *NA*(09/18/2011 10:30:00) [facility] ExwvcucEMGBMNWOU7728-08-37 14:07:004.4[facility]annCHEMISTRY 2011-09-18 14:07:001.6[facility] HermannBEDSIDE GLUCOSE UZVSCOD8302-19-90 14:01:00 >400[facility] LwwujhpKBSCKDEWH5398-51-88 13:52:0092[facility]annCHEMISTRY 2011-09-18 13:52:0030[facility] EimfttmHBRJSVAUU4531-07-24 13:52:003.5[facility] GqzauyxYYNKGJAZN9798-25-89 13:52:73497Whzexypo DipssdzTGSJMGXUK6659-74-40 13:52:001.3[facility] IclurvhQJIWLBLDN2321-76-88 13:52:25832[facility] [place] KQHVBFIQN1014-71-91 13:52:0017[facility] NsdyzkjDUAYDHCKZ3925-36-05 13:52:0014.5 [facility] QhdcjsnGGRANUNKIQ7116-54-33 13:52:0012.0[facility]annHEMATOLOGY 2011-09-18 13:52:79640Bvmeejnq ThqtehbJDQSAGRGSJ3043-83-89 13:52:0033.7[facility] MoffkfiZJVNEYOLBU5967-48-34 13:52:00 Test Item Value Reference Range Interpretation Comments MCH (test code = MCH) 28.5 pg 27.0-31.0 N [facility] InbykfdWRJUJHUEOC8111-80-10 13:52:0015.1[facility] HermannHEMATOLOGY 2011-09-18 13:52:0084.6[facility] SrjqadxQPGLBLRDVV1702-12-94 13:52:0036.4[facility] XyhaqxbYNFGVFUCHM0930-52-82 13:52:0012.3[facility] CvmjjaoEDDGVBBZGA1752-62-62 13:52:004.30[facility] EyfrpsxEBUTDVETBX0165-16-85 13:52:0011.7[facility] UZVBBMQNPK7601-35-57 13:52:002.9[facility] BcyjpdxKUVBFJCRJS7805-30-52 13:52:000.2 [facility] GsizeroDZDTYODFGP2018-87-08 13:52:000.0[facility] HermannHEMATOLOGY 2011-09-18 13:52:000.0[facility] GbctrinVPSFEMIXUK1894-02-92 13:52:000.3[facility] IuazlowSKOCHXYROR0840-46-59 13:52:0092.0[facility] EedplfpOTUVQXLKIL5925-73-41 13:52:004.9[facility] FtopcpkZCOGUORQDU3481-77-96 13:52:00Rare *ABN*(09/18/2011 08:52:00)[facility] UhmapnyNTNPSJPTYE4968-62-90 13:52:00Slight *ABN*(09/18/2011 08:52:00)[facility] EwojvfjOAFNXRRYMF9831-32-12 13:52:001+ *ABN*(09/18/2011 08:52:00)[facility] JusueogOBJWYYWBXD1044-72-99 13:52:001+ *ABN*(09/18/2011 08:52:00)[facility] MbsuppgOHSMGZLLMX4659-79-81 13:52:000.6[facility] Vin YRGFASDGLH9638-02-09 13:52:0010.8[facility] JvozgfjWZKSHTPSDB5405-68-41 13:52:00 0.0[facility] DdrsfawMLVESEXFCK6089-58-96 13:52:001+ *ABN*(09/18/2011 08:52:00) [facility] DilmjfpGMBVQOBXUE0028-14-95 13:52:00Negative *NA*(09/18/2011 08:52:00) [facility] TrtdsfdWOTHMSCZX0691-99-89 13:52:0024[facility]annCHEMISTRY 2011-09-18 13:52:0032.0[facility] AnmtdphIUUNJOLDB1440-50-77 13:52:0044[facility] ReowfryILZPHXMFG4997-57-14 13:52:007[facility] BwnffqqKFNSDBWCL8234-67-72 13:52:00 48.0[facility] HmkdtmcSGYTCUAGY1110-06-51 13:52:0037.0[facility] HermannCHEMISTRY 2011-09-18 13:52:007.47[facility] KjrusttSLQSSFEAY1011-76-59 13:52:0010.1[facility] HermannBEDSIDE GLUCOSE ANBLLLW7612-92-08 17:34:65825Tewbcnyq HermannBEDSIDE GLUCOSE FTMVJPT9630-18-45 11:43:0091[facility]annBEDSIDE GLUCOSE TESTING 2011-09-09 02:45:34201Zndahhzl ZpgupacUORABVOJX1363-03-08 08:47:08424Fffcymwp HlvzklaYVUJSIWOJ4409-32-63 08:47:14942Cbmybtbr SrequnfXUTFJPBGM9370-26-27 08:47:0029[facility] KkkyiisEKPNYHRBL4822-91-11 08:47:84721Fxpyodeb Vin SQJMYFKUB1901-78-58 08:47:0010[facility] KypsthaHEZWGRZPE6195-38-34 08:47:003.8 [facility] DgvfdtoJUHYLLQNL6534-99-69 08:47:000.6[facility] HermannCHEMISTRY 2011-09-08 08:47:008.5[facility] OivohszKLTUUJWER9030-06-25 08:47:0014.8[facility] UldonvhAXSQAQRNZJ5031-34-42 08:47:00 Test Item Value Reference Range Interpretation Comments MCH (test code = MCH) 28.9 pg 27.0-31.0 N [facility] HsbpghfMMTAWDDMFL8540-14-67 08:47:0082.1[facility] HermannHEMATOLOGY 2011-09-08 08:47:0025.9[facility] HfqcplvCSATURTNXN4346-17-14 08:47:75838Sjbsxudv SagpoqlIKSTUOIAPD0257-03-97 08:47:0014.5[facility] EtjukppGCZETNGOWM6362-93-20 08:47:0035.2[facility] RgvvxzpRXSHNHQVBQ0383-84-04 08:47:009.1[facility] COMVONNKGY8237-44-58 08:47:003.15[facility] EmaerntZZOTQQNYLK4277-35-44 08:47:00 9.0[facility] DpnbxgyVYRYOEETXK2050-25-74 08:47:006.3[facility] HermannHEMATOLOGY 2011-09-08 08:47:000.0[facility] LpmmambQHNSSDZVED2154-92-26 08:47:000.0[facility] MtzpnlvULPVTSQVIV9683-32-56 08:47:003.8[facility] NbnctutUJGNZKRWHM3545-59-63 08:47:002.0[facility] KeeumzmUGYJOCDFSU6761-29-65 08:47:000.5[facility] OQKGFQIOGH0560-64-66 08:47:000.7[facility] QjjkubvZSSCYMNQJU0834-84-69 08:47:006.2 [facility] SowbtrxCTXGVEHTDL8761-49-42 08:47:0061.1[facility] HermannHEMATOLOGY 2011-09-08 08:47:0031.5[facility] LpvmeyrGKWRDQWEDR1064-41-94 08:47:000.4[facility] JurjevzRKIVHVKKO5247-33-98 10:54:0027[facility] WmjowffTSXPTBOZO8528-89-13 10:54:33065Ampfwifa ZfydpwlLVFTFHAPW5987-84-31 10:54:000.5[facility] NMCISMCQR4785-90-28 10:54:0010[facility] SmvniiaVQOKEMAKI6218-95-90 10:54:004.1 [facility] MrmjjyqSBLIWJOOK8373-88-73 10:54:71434Cmoplzgo HermannCHEMISTRY 2011-09-07 10:54:0083[facility] RlqyayzGIDUEPJNB4881-60-03 10:54:008.4[facility] NeerafkOJOTVIXPK6367-15-83 10:54:0014.1[facility] RulxbzgQROIYZKEPP5083-53-61 10:54:0035.5[facility] GashmdjESQDICKWZW9497-39-39 10:54:004.7[facility] [place] IDWXMJSDAM1577-62-55 10:54:0092.6[facility] LctuifpKKEWAEPMAA7408-41-02 10:54:00 Test Item Value Reference Range Interpretation Comments MCH (test code = MCH) 31.4 pg 27.0-31.0 H [facility] EnhblyuEJRLBWGOXK7268-77-26 10:54:003.84[facility] HermannHEMATOLOGY 2011-09-07 10:54:0012.1[facility] IjghxzmTZNLPVVOFS0793-13-58 10:54:28211Igxjvsdy DuxvuetMTNNKOPLHQ9568-52-05 10:54:0012.7[facility] QxbtusjBPVNHPSZPG1351-04-31 10:54:0033.9[facility] BrwejkxUVTKURHVQK2039-43-01 10:54:007.2[facility] UVOEZFFBYP5902-12-77 10:54:000.95[facility] QlqlanyNQWPOXWYXO9792-76-62 10:54:00 Test Item Value Reference Range Interpretation Comments PT (test code = PT) 12.7 s 12.0-14.7 N [facility] QxwrxfzTJHKDNFQXN9150-51-44 10:54:00 Test Item Value Reference Range Interpretation Comments PTT (test code = PTT) 28.5 s 22.9-35.8 N [facility] NrbdaivUIIHSKILUL4296-83-06 10:54:000.1[facility] HermannHEMATOLOGY 2011-09-07 10:54:000.0[facility] CblpeyjULAGEXJXWX8943-41-79 10:54:000.4[facility] QrucaucDRLLDKHXRZ8775-68-64 10:54:002.1[facility] VnndxegYMGLDTDGYR8819-29-58 10:54:009.0[facility] EmwgzzeGEHQLBCBXK7790-07-11 10:54:002.4[facility] UPXWRXXCSF1224-27-10 10:54:000.4[facility] VgwkntyNPUAPXYRLL4680-82-24 10:54:002.0 [facility] TylobxiDAGSUIBQWQ4751-36-36 10:54:0042.8[facility] HermannHEMATOLOGY 2011-09-07 10:54:0045.4[facility] MgtpovsFYJTQJZJM7668-84-90 10:02:39422Nzdqyqwk AaciszxOGRBVTFRQ7807-19-48 10:02:004.1[facility] ZplgnhwWRJHIHNBC1186-48-00 10:02:21528Vkomzyvr IejxthzBLBKRIXQV2991-04-03 10:02:0029[facility] DJMQBASFA3452-63-77 10:02:008.7[facility] GdnntjtQFDOVNFPC4474-97-92 10:02:006 [facility] ZhawdiwOGKBAQNBI1939-16-34 10:02:000.6[facility] HermannCHEMISTRY 2011-09-07 10:02:96046Wncrdrqy HbbdunoWFUGDPMLJ3648-51-28 10:02:0013.1[facility] GmsfcjrSZCXKADGRY5160-76-67 10:02:000.0[facility] XhfqymaLDQPDHGMNB9030-50-80 10:02:000.3[facility] XwphqedPRNQSAGPHK1041-01-86 10:02:000.1[facility] FMPAUAGQEP5699-05-93 10:02:002.8[facility] LglksiqLGYXIHJFMI4470-98-06 10:02:001.7 [facility] FhpopfxJPGKNHRSYV4649-02-99 10:02:000.6[facility] HermannHEMATOLOGY 2011-09-07 10:02:006.9[facility] DzyvajcCGSCRTMAGS4325-38-35 10:02:002.0[facility] QdchxezYLKLYEWFVE3956-88-09 10:02:0055.8[facility] BqgzuymAXWHCLXOSF5074-01-19 10:02:0034.7[facility] WnogvjwJWWJVMDFPA7963-44-33 10:02:00 Test Item Value Reference Range Interpretation Comments PTT (test code = PTT) 32.2 s 22.9-35.8 N [facility] PtrrimzOECLCVENTS6748-19-69 10:02:00 Test Item Value Reference Range Interpretation Comments PT (test code = PT) 13.3 s 12.0-14.7 N [facility] YuxivgvDAFINOYFGT5500-80-07 10:02:001.01[facility] HermannHEMATOLOGY 2011-09-07 10:02:0027.5[facility] InuwqjnUYRDCRHWCQ5156-88-93 10:02:003.34[facility] QcxfkriTLLZXIGZSH5690-11-71 10:02:009.7[facility] UbehszjXKCVQOOCKC8672-90-75 10:02:005.0[facility] WworqobNMHNKPGVCT9796-50-36 10:02:009.2[facility] QOZLXCXHYS8077-20-91 10:02:50692Valltfnn JvuyxwtQSGGCWEGRF0079-87-99 10:02:00 14.3[facility] ValazazQBOXWBIZYZ5299-78-71 10:02:0035.2[facility] HermannHEMATOLOGY 2011-09-07 10:02:00 Test Item Value Reference Range Interpretation Comments MCH (test code = MCH) 28.9 pg 27.0-31.0 N [facility] MggsxvnCORUGDIGXY3964-44-67 10:02:0082.1[facility] HermannCHEMISTRY 2011-09-03 09:24:002.1[facility] UgrfemwJHVBVWEJS7702-13-16 17:10:0037.0[facility] UbkobpbIQFAVMBRD4445-78-79 17:10:0027.0[facility] GjkqhdaQEVJDAPIY6667-67-30 17:10:0047[facility] KgluagwCPXVVJWNC9633-39-51 17:10:007.37[facility] QBNKGYCRF4369-72-09 17:10:001[facility] HemcuunPDGFPURQK1461-76-20 17:10:0027.2 [facility] RqaobwsHTWVTKBPD6419-14-78 17:10:0019[facility] HermannCHEMISTRY 2011-09-01 13:09:001.0[facility] KnitmheGWTKEFBPD3937-53-10 12:20:00Negative (09/01/2011 07:20:00)[facility] NvjfsvhYYBTPXXKJY0747-50-72 12:20:00Occasional /LPF (09/01/2011 07:20:00)[facility] FztlztfMYDCJJEYAT9420-31-45 12:20:00Negative (09/01/2011 07:20:00)[facility] CnuhxvwRAZICYPHGE4146-45-43 12:20:00Negative (09/01/2011 07:20:00)[facility] VjvpbacLJWEJLRWPY5322-35-00 12:20:000.2[facility] ZdkokrlRDOMAFWFVT3986-66-54 12:20:00Negative (09/01/2011 07:20:00)[facility] YfeinbfDLCMZUVMKL9103-33-74 12:20:00>=80 mg/dL *ABN*(09/01/2011 07:20:00) [facility] SbtfgkvQWJMQWTRDY9285-48-11 12:20:00Negative (09/01/2011 07:20:00) [facility] FwdgugsHCRJNUZANY9946-22-78 12:20:00 Test Item Value Reference Range Interpretation Comments UA pH (test code = UA pH) 6.0 1 5.0-8.0 N [facility] BfyauoyZRKXPJZEGI5760-21-97 12:20:00Negative (09/01/2011 07:20:00) [facility] GvkeqczUIXCWTQPRI4665-99-06 12:20:00>=1000 mg/dL *ABN*(09/01/2011 07:20:00)[facility]EhimdnxFTWDQISYRD8564-79-08 12:20:00 Test Item Value Reference Range Interpretation Comments UA Spec Grav (test code = UA Spec 1.035 1 H Grav) [facility] GpyktbgUHGPAEUBXF7512-95-52 12:20:00Clear (09/01/2011 07:20:00)[facility] KbuobipZPRTRSNTHI9653-76-57 12:20:00Yellow *NA*(09/01/2011 07:20:00)[facility] MvrrrfvFYBGAXOTI9410-51-69 08:00:002.8[facility] JgsbqtzRJVGRCUZQ3090-10-83 07:47:001.5[facility] EmygzmhETESIPGSDC4377-95-60 07:47:00Slight (09/01/2011 02:47:00)[facility] NttioiyNNXWHOKUMY4735-50-60 07:47:001+ *ABN*(09/01/2011 02:47:00)[facility] GrpshveCBNVTMDAPW4566-56-34 07:47:00Slight *ABN*(09/01/2011 02:47:00)[facility] GkuvbnxPGLOZSPKQQ8687-03-82 07:47:00Slight *ABN*(09/01/2011 02:47:00)[facility] HermannBEDSIDE GLUCOSE JROEEVT1681-63-46 17:02:77241Uffpvjnn HermannBEDSIDE GLUCOSE PCKUWXH6866-14-82 13:45:25969Yqlftftw HermannCHEMISTRY 2011-08-23 10:22:003.0[facility] HvksugbBQCHDMASS9231-47-54 10:22:001.8[facility] UsuccxhULOQRXXTD3002-48-91 10:22:31308Wgcsmtxi ZcdotkkPFTPOHCXU7974-18-17 10:22:003.0[facility] JdykfjpBDZDSKMAC0177-02-69 10:22:30030Wxmmxaei [place] MLCNXRNZR9609-44-28 10:22:000.6[facility] ZoehcwdBWGPPIEZR1236-35-47 10:22:0023 [facility] SzmewpgACOIDVGBW9723-31-04 10:22:007.3[facility] HermannCHEMISTRY 2011-08-23 10:22:59283Tlpjasgz JnpmsurBTTTOEXSH0523-35-14 10:22:0014.0[facility] BflzkerBYULBVMRT3741-01-45 10:22:005[facility] JnhatafFWOZPGTRWJ6089-18-15 10:22:0069.6[facility] HofpmzoCNWIVTAWZW5134-34-59 10:22:0021.5[facility] HKGRVFTFYC7642-09-11 10:22:007.6[facility] VoqqaklDRLRJNKJKL0334-63-78 10:22:001.0 [facility] GokydtgPESAZAUSUV4584-71-60 10:22:000.3[facility] HermannHEMATOLOGY 2011-08-23 10:22:004.8[facility] XonteniBYFPBTAKBO4616-28-87 10:22:000.1[facility] MxdddxmPXQZMHZCUC9114-08-92 10:22:001.5[facility] XlnztlxYXKALKHPGC7708-01-16 10:22:000.5[facility] XabklslPRAFRENKZT5071-17-28 10:22:000.0[facility] ZCFOMPWCZF6710-04-40 10:22:0011.0[facility] JvithouAAJMXHFWGB9337-62-94 10:22:00 161[facility] XxwbsloIKJEAKRZEL9029-28-09 10:22:00 Test Item Value Reference Range Interpretation Comments MCH (test code = MCH) 29.6 pg 27.0-31.0 N [facility] UklcbksFPWUYLJOQD1285-95-81 10:22:0035.4[facility] HermannHEMATOLOGY 2011-08-23 10:22:0014.1[facility] TrjygsuSVOBDMYUEL9208-70-72 10:22:006.8[facility] DhdpddyCBAONIESRF6367-31-42 10:22:0083.5[facility] UypmjkbCTSOALKDRA3469-70-62 10:22:004.44[facility] WnuncwhXCVUVXAPHF8258-70-66 10:22:0013.1[facility] [place] VJUJVDREOX2474-24-32 10:22:0037.1[facility] HermannBEDSIDE GLUCOSE TESTING 2011-08-23 02:20:30538Mwguzxcg ZcaukfmKZGSVQGAS2836-86-42 09:47:002.5[facility] HwbvefaKBFZKZOIF6942-90-01 09:47:07043Owvlgdjy RifdrsnTBQMJJXUC7180-60-15 09:47:007[facility] TbdhpxqMTBXLHMSB0270-60-25 09:47:0019[facility] HermannCHEMISTRY 2011-08-22 09:47:000.3[facility] GtljnmoUGCHXILKY7117-87-45 09:47:82375Gtyrltss XgnjhdqGNHYOHFKI9551-54-18 09:47:85008Eejhqdhy XwnvxgzJHUWEKARL9679-47-22 09:47:003.6[facility] VhaucezJQOGIHEAE1747-66-52 09:47:007.9[facility] NIVEFUSLH3855-51-59 09:47:0018.6[facility] AeiifitIHUYLIPMK3695-16-30 09:47:001.6 [facility] OsulfxnTSOIKMVMWS8704-52-45 09:47:000.0[facility] HermannHEMATOLOGY 2011-08-22 09:47:000.4[facility] JgvnuxkUENMVFRSJY2789-41-93 09:47:000.5[facility] GimanpbAMPBQKSRFH5368-85-37 09:47:005.9[facility] EtfdnivNDJHOTUTDB4081-23-90 09:47:001.2[facility] BtsdgggLXSUOIUNFO9221-91-88 09:47:000.5[facility] QVOMBKTKOG7239-33-16 09:47:000.0[facility] LvpedqlEWTBGALPOU4439-43-86 09:47:00 76.9[facility] AeocfzjSSNGXSURAN1845-18-13 09:47:0015.9[facility] HermannHEMATOLOGY 2011-08-22 09:47:006.3[facility] HhvrfrvTQCVMJRIAX5018-67-63 09:47:0082.8[facility] HtnnusfZWOLCWIQZD7011-86-31 09:47:0039.7[facility] EqfnlfmKUVEECNXFO4286-00-70 09:47:00 Test Item Value Reference Range Interpretation Comments MCH (test code = MCH) 29.1 pg 27.0-31.0 N [facility] IzkpdmaKTKXUIDKLS1858-12-35 09:47:0014.0[facility] HermannHEMATOLOGY 2011-08-22 09:47:0035.2[facility] HprbxaqALMVLDYBCV3027-42-62 09:47:0013.9[facility] IeklsuiLTURLVBMPG6946-46-06 09:47:49243Bvubxwdi IwopgjfLCHIJEQEPN2736-76-05 09:47:0011.9[facility] ShvfoxnTYZWSRYEYV3421-85-93 09:47:007.7[facility] [place] RFYVJBHUFT3197-09-54 09:47:004.80[facility] IlejgdhSGBFQHQGS0075-90-78 10:28:002.6 [facility] AosspxfHOBWLPZGT1006-92-15 10:28:001.8[facility] HermannCHEMISTRY 2011-08-21 10:28:003.7[facility] GsdtwlxTEUBLSNRL5332-77-96 10:28:83560Ifvkydkl PenzswgCUXCLAVDT4000-65-63 10:28:000.6[facility] OsxaxcrBJUWXEIOU4381-48-19 10:28:0016[facility] OdqdrogKHOXYOWJQ0894-95-98 10:28:29860Tumospmr [place] REESEEDSI1841-43-43 10:28:008.3[facility] QzucnkrXFXPIRXAD0311-62-43 10:28:0019.7 [facility] UhjcuqdEFUGQIQGL4115-02-32 10:28:0099[facility] HermannCHEMISTRY 2011-08-21 10:28:0022[facility] StobdzcQRILBLSJEJ4262-68-68 10:28:27620Jdtjzldk ZsilaqoISSANGIBFF0455-55-30 10:28:0012.0[facility] GklcpulOYIAQZSTFL9715-52-19 10:28:007.3[facility] OnepmnwLNDZYSJEKJ9818-02-19 10:28:0014.6[facility] [place] JSEKEYJFCY2348-99-63 10:28:0035.0[facility] NitqtpgJLJIJSUTHW8779-50-10 10:28:00 4.54[facility] PggyysmIUIOXYLAGY3018-20-86 10:28:0037.6[facility] HermannHEMATOLOGY 2011-08-21 10:28:0082.9[facility] YugeqynRYGWATDEXP4283-23-28 10:28:00 Test Item Value Reference Range Interpretation Comments MCH (test code = MCH) 29.0 pg 27.0-31.0 N [facility] TlydvjlLKOASBPBDS9926-40-57 10:28:0013.2[facility] HermannHEMATOLOGY 2011-08-21 10:28:00Slight *ABN*(08/21/2011 04:28:00)[facility]annHEMATOLOGY 2011-08-21 10:28:00Slight (08/21/2011 04:28:00)[facility]annHEMATOLOGY 2011-08-21 10:28:000.0[facility] AzkbropIGRQYLJYAX5332-06-35 10:28:00Slight (08/21/2011 04:28:00)[facility] PprihjwKATDUCXLSK3738-91-74 10:28:000.6[facility] IdyfxbrFXPAEVQCJB4370-56-88 10:28:000.0[facility] WfntkogRDNJIFZBXM2453-55-00 10:28:005.3[facility] AzrilunGGJAIMWHFC9793-98-88 10:28:001.3[facility] VUXCEHASET6813-75-56 10:28:000.5[facility] ZcdhvipSQZWZOPFVE0486-56-69 10:28:008.5 [facility] OwrcfkuXAMDEHELPH9123-71-78 10:28:000.3[facility] HermannHEMATOLOGY 2011-08-21 10:28:0017.3[facility] TvvdddjPOGZDAZSYO6932-58-70 10:28:0073.4[facility] AznbzxiCTONFWWIB9722-60-28 21:58:00Negative (08/19/2011 15:58:00)[facility] XecwtaoCKRRAFQMA6079-95-59 21:58:78942Ndmyykuq ChiyfquOMLIZIEIA0742-91-46 21:58:0054[facility] TtqpznyYSGUIIHOU2482-66-99 21:58:16305Ywrpsgot Vin MRZPVXNTY1414-71-38 21:58:000.1[facility] IqwxnwdZNSKEDMAU5506-89-55 21:58:000.9 [facility] MhbqlhkVLZJSHBWL7706-43-91 21:58:004.4[facility] HermannCHEMISTRY 2011-08-19 21:58:008.8[facility] YftmkdkHCNDVULIQ7494-66-32 21:58:000.8[facility] DjgmcadGBKRVXXEC6955-55-18 21:58:0036[facility] FfmwzkuRQKMHCIAP4453-33-14 21:58:004.4[facility] UebapefUSJUGWHVB8135-41-16 21:58:001.0[facility] WOSCKJRFTG7260-99-20 21:58:00Occasional /HPF (08/19/2011 15:58:00)[facility] RqqlbfkVVXAAVFAKM7995-63-64 21:58:003-5 /HPF *ABN*(08/19/2011 15:58:00)[facility] MpeijlqWSXOERUSKY1826-64-89 21:58:003[facility] QntsrakKGWBMIZRAY2531-26-33 21:58:00Few /LPF (08/19/2011 15:58:00)[facility] ChildrenIatkrfzZFCCSZWOUH8338-57-79 21:58:00Occasional /HPF *ABN*(08/19/2011 15:58:00)[facility] ChildrenannURINALYS 2011-08-19 21:58:000.2[facility] BvetzyvKPKJMSDDAL4331-55-68 21:58:00Rare /LPF (08/19/2011 15:58:00)[facility] ChildrenIvljlvgMFUVBSHVNH5601-41-68 21:58:00Performed (08/19/2011 15:58:00)[facility] ChildrenCdohhysNYCDFVHHOS1440-28-98 21:58:00Negative (08/19/2011 15:58:00)[facility] ChildrenQkefutdMKESHTOLMV9005-84-97 21:58:00Negative (08/19/2011 15:58:00)[facility] ChildrenUllbzfoQVUDMRSLPX5392-20-06 21:58:00 Test Item Value Reference Range Interpretation Comments UA pH (test code = UA pH) 5.5 1 5.0-8.0 N [facility] ChildrenHuwhsfgJBLLKHWHGT7953-85-63 21:58:00Trace *ABN*(08/19/2011 15:58:00) [facility] ChildrenXtbvieiTTPGUVWJTF8023-40-10 21:58:00Negative (08/19/2011 15:58:00) [facility] ChildrenMnzdzfrXYYYLJSIFI4195-30-72 21:58:0080 mg/dL *ABN*(08/19/2011 15:58:00) [facility] ChildrenMewepmxXBLOXODHZV5321-27-35 21:58:00>=1000 mg/dL *ABN*(08/19/2011 15:58:00)[facility] ChildrenWuegfyrYUZSQDUFLJ1041-64-36 21:58:00Negative (08/19/2011 15:58:00)[facility] ChildrenKgntgpiQHNYLBJTHO4919-75-12 21:58:00Slight Cloudy (08/19/2011 15:58:00)[facility] ChildrenUzwomxsCYKDBKIHXH4704-15-11 21:58:00 Test Item Value Reference Range Interpretation Comments UA Spec Grav (test code = UA Spec 1.025 1 Grav) [facility] TqxaxguXMARCJLLMD7751-50-63 21:58:00Yellow (08/19/2011 15:58:00) [facility] VeeygwrVCWQKMXXN1409-26-04 21:13:0023[facility] HermannCHEMISTRY 2011-08-19 21:13:001.0[facility] BoathfuEELKHJINS3029-78-60 21:13:81635Sfxcxdlj BnwrzdfOJLXUPRTT0040-78-78 21:13:0056[facility] LvdtewzUBLJYTTFG1003-11-89 21:13:009.0[facility] BpajaxcPIIBABQTE3213-79-97 21:13:004.8[facility] [place] IFHUGLEZI5298-34-73 21:13:004.2[facility] FduwxlmFNUQYPGBW2276-84-78 21:13:001.1 [facility] KvpilqoIMOQEUFZO2209-61-35 21:13:0030[facility]annHEMATOLOGY 2011-08-19 21:13:00Normal (08/19/2011 15:13:00)[facility]annHEMATOLOGY 2011-08-19 21:13:00Slight *ABN*(08/19/2011 15:13:00)[facility]annHEMATOLOGY 2011-08-19 21:13:000.0[facility] UgqduwaMIBYBDRJGL9955-07-81 21:13:000.0[facility] PujbfwqPFPDVJKOG6091-93-63 21:10:0074.0[facility] AygwbleLKCPFJBWM3182-55-01 21:10:0037.0[facility] KyyolbhVPTICFMOE2384-47-76 21:10:0042[facility] AFWYYEEEK2783-58-70 21:10:0017.3[facility] VthbioqOZXBGIBCC4618-56-26 21:10:007.34 [facility] LffcvrrZKIOIPJBH5139-57-03 21:10:0032[facility]annCHEMISTRY 2011-08-19 21:10:00-7[facility] SyqeqagPQXOURHRZE1976-43-35 20:34:00Negative *NA*(08/19/2011 14:34:00)Shahid Banuelos
[2020-10-30] MEDS ORDERED: MEPERIDINE HCL 50 MG/ML ONE (23:06)
[2020-10-30] MEDS ORDERED: PROMETHAZINE INJ 25 MG/ML AMP ONE (23:06)
[2020-10-30] MEDS ORDERED: NA CHLORIDE 0.9% 1,000 ML ONE (23:06)
[2020-10-30 23:11] LABS: Absolute Lymphocytes (CBC) 0.6 K/uL (0.7-4.9); Basophils % 0.6 % (0-1.3); Hematocrit 24.2 % (36.0-45.0); Lymphocytes % 19.3 % (15.3-44.8); MPV 11.2 fL (7.6-11.3); RBC Red Blood Cell Count 2.71 M/uL (3.86-4.86)
[2020-10-30 23:38] LABS: Albumin 2.9 g/dL (3.4-5.0); Bilirubin Direct 0.2 mg/dL (0-0.2); Bilirubin Total 0.5 mg/dL (0.2-1.0); Potassium 3.9 mmol/L (3.5-5.1); Protein, Total 6.9 g/dL (6.4-8.2)
--- NOTE | 2020-10-31 00:30 | ER ---
Nurse's Notes [facility] Name: Cathi Zaldivar Age: 40 yrs Sex: Female : 1980 Arrival Date: 10/30/2020 Time: 22:02 Bed 4 Private MD: Diagnosis: Vomiting, unspecified;Diarrhea, unspecified;Coronavirus infection, unspecified Presentation: 10/30 22:00 Chief complaint: Patient states: I was recently admitted here and diagnosed with covid. jb4 They told me the vomiting was due to the covid infection but I have not been able to stop vomiting or having diarhea. EMS states: Pt called us out to due vomitting bright red blood. 22:00 Coronavirus screen: Client denies travel out of the [place] in the last 14 days. Ebola jb4 Screen: No symptoms or risks identified at this time. Initial Sepsis Screen: Does the patient meet any 2 criteria? No. Patient's initial sepsis screen is negative. Does the patient have a suspected source of infection? No. Patient's initial sepsis screen is negative. Risk Assessment: Do you want to hurt yourself or someone else? Patient reports no desire to harm self or others. Onset of symptoms was October 26, 2020. Transition of care: patient was not received from another setting of care. 22:00 Method Of Arrival: EMS: [facility] jb4 22:00 Acuity: JESSICA 3 jb4 Historical: - Allergies: 22:00 ambien; jb4 22:00 Codeine; jb4 22:00 GUAIFENESIN; jb4 22:00 Lisinopril; jb4 22:00 Morphine; jb4 22:00 Nitrofurantoin Macrocrystal; jb4 22:00 PENICILLINS; jb4 22:00 Prolixin; jb4 22:00 zolpidem tartrate; jb4 22:00 Ibuprofen; jb4 - Home Meds: 22:00 divalproex 500 mg Oral tab 2 times per day [Active]; doxazosin 4 mg Oral tab [Active]; jb4 gabapentin 100 mg Oral cap as needed [Active]; Lantus 100 unit/mL Sub-Q tab as needed [Active]; metoprolol tartrate 25 mg Oral tab 1 tab 2 times per day [Active]; hydralazine 50 mg Oral tab [Active]; Novolog 100 unit/mL Sub-Q tab [Active]; pravastatin Oral [Active]; sertraline 100 mg Oral tab [Active]; tramadol 50 mg Oral tab 1 tab PRN [Active]; - PMHx: 22:00 CHF; chronic kidney disease; cyclic vomiting syndrome; Diabetes - NIDDM; Dialysis; jb4 m-w-f; ENCEPHALOPATHY; Gastroparesis; HD-TTHSat; Hypertension; liver failure; PERIPHERAL NEUROPATHY; Seizures; "mental problems"; - Immunization history:: Adult Immunizations up to date. - Social history:: Smoking status: Patient denies any tobacco usage or history of. Patient/guardian denies using alcohol, street drugs. - Family history:: not pertinent. - Hospitalizations: : The patient was recently seen at [facility]. Screenin:00 Abuse screen: Denies threats or abuse. Nutritional screening: No deficits noted. jb4 Tuberculosis screening: No symptoms or risk factors identified. Fall Risk None identified. Assessment: 22:00 General: Appears in no apparent distress. uncomfortable, Behavior is calm, cooperative, jb4 appropriate for age. Pain: Complains of pain in abdomen Pain does not radiate. Pain currently is 10 out of 10 on a pain scale. Neuro: Level of Consciousness is awake, alert, obeys commands, Oriented to person, place, time, situation. Cardiovascular: Patient's skin is warm and dry. Respiratory: Airway is patent Respiratory effort is even, unlabored, Respiratory pattern is regular, symmetrical. GI: No signs and/or symptoms were reported involving the gastrointestinal system. : No signs and/or symptoms were reported regarding the genitourinary system. EENT: No signs and/or symptoms were reported regarding the EENT system. Derm: Skin is intact, Skin is pink, warm \\T\\ dry. Musculoskeletal: Circulation, motion, and sensation intact. Range of motion: intact in all extremities. 23:00 Reassessment: Patient appears in no apparent distress at this time. Patient and/or jb4 family updated on plan of care and expected duration. Pain level reassessed. Patient is alert, oriented x 3, equal unlabored respirations, skin warm/dry/pink. 10/31 00:00 Reassessment: Patient appears in no apparent distress at this time. Patient and/or jb4 family updated on plan of care and expected duration. Pain level reassessed. Patient is alert, oriented x 3, equal unlabored respirations, skin warm/dry/pink. Vital Signs: 10/30 22:00 BP 125 / 67; Pulse 66; Resp 18; Temp 98.2(O); Pulse Ox 96% on R/A; Weight 75 kg (R); jb4 Height 5 ft. 3 in. (160.02 cm); Pain 8/10; 23:00 BP 156 / 78; Pulse 73; Resp 17; Pulse Ox 99% on 2 lpm NC; jb4 10/31 00:30 BP 168 / 72; Pulse 66; Resp 16; Pulse Ox 96% on R/A; jb4 10/30 22:00 Body Mass Index 29.29 (75.00 kg, 160.02 cm) jb4 ED Course: 10/30 22:00 Arm band placed on right wrist. jb4 22:00 Patient has correct armband on for positive identification. Bed in low position. Call jb4 light in reach. Side rails up X 1. Pulse ox on. NIBP on. 22:02 Patient arrived in ED. rn 22:02 Dinesh Stallworth MD is Attending Physician. rn 22:10 Silverio Macias, RN is Primary Nurse. jb4 22:17 Triage completed. jb4 22:19 Initial lab(s) drawn, by me, sent to lab. Inserted saline lock: 22 gauge in left ca1 forearm, using aseptic technique. Blood collected. 10/31 01:03 No provider procedures requiring assistance completed. IV discontinued, intact, jb4 bleeding controlled, No redness/swelling at site. Pressure dressing applied. Administered Medications: 10/30 22:27 Not Given (Pt allergic): morphine 4 mg IVP once; RASS on ADMIN: Combtv4, Very Agttd3, jb4 Agttd2, Rstlss1, AlertClm0, Drwsy-1, Lt Sdtn-2, Mod Sdtn-3, Dp Sdtn-4, UnArsble-5 22:51 Drug: Phenergan (promethazine) 12.5 mg Route: IVP; Site: left forearm; jb4 22:54 Drug: Demerol (meperidine) 50 mg Route: IVP; Site: left forearm; jb4 22:56 Drug: NS 0.9% 1000 ml Route: IV; Rate: 1000 ml; Site: left forearm; jb4 10/31 00:49 Not Given (Physician Discretion): Demerol (meperidine) 50 mg IVP once; RASS on ADMIN: jb4 Combtv4, Very Agttd3, Agttd2, Rstlss1, AlertClm0, Drwsy-1, Lt Sdtn-2, Mod Sdtn-3, Dp Sdtn-4, UnArsble-5 Outcome: 00:30 Discharge ordered by . rn 01:03 Discharged to home via wheelchair, with family. jb4 01:03 Condition: stable 01:03 Discharge instructions given to patient, Instructed on discharge instructions, follow up and referral plans. medication usage, Demonstrated understanding of instructions, follow-up care, medications, Prescriptions given X 2. 01:05 Patient left the ED. jb4 Signatures: Dinesh Stallworth MD MD rn Bryson, James, RN RN jbDeneen Mccormick RN TABATHA ca1 Corrections: (The following items were deleted from the chart) 10/30 22:35 22:00 Allergies: Demerol; jb4 jb4 23:19 23:00 BP 112 / 66; Pulse 100bpm; Resp 17bpm; Pulse Ox 92% 2 lpm Nasal Cannula; jb4 jb4
--- NOTE | 2020-10-31 00:31 | EDPHYS ---
Physician Documentation [facility] Name: Cathi Zaldivar Age: 40 yrs Sex: Female : 1980 Arrival Date: 10/30/2020 Time: 22:02 Bed 4 Private MD: ED Physician Dinesh Stallworth HPI: 10/30 22:09 This 40 yrs old Female presents to ER via Unassigned with complaints of rn nausea/vomitnig/diarrhea. 22:09 The patient presents to the emergency department with nausea, vomiting, diarrhea. rn Onset: The symptoms/episode began/occurred 1 week(s) ago. Possible causes: COVID. The symptoms are aggravated by food , The symptoms are alleviated by nothing. Associated signs and symptoms: Pertinent positives: abdominal pain, diarrhea, nausea, vomiting, Pertinent negatives: fever. Severity of symptoms: At their worst the symptoms were moderate in the emergency department the symptoms are unchanged. The patient has experienced similar episodes in the past. The patient has been recently seen by a physician: The patient has been recently been admitted at [facility]. Reports admitted and discharged from this hospital 2 days ago, COVID +, reports not sent home with anything and continues to have nausea/vomiting/diarrhea. No fever. . Historical: - Allergies: 22:00 ambien; jb4 22:00 Codeine; jb4 22:00 GUAIFENESIN; jb4 22:00 Lisinopril; jb4 22:00 Morphine; jb4 22:00 Nitrofurantoin Macrocrystal; jb4 22:00 PENICILLINS; jb4 22:00 Prolixin; jb4 22:00 zolpidem tartrate; jb4 22:00 Ibuprofen; jb4 - Home Meds: 22:00 divalproex 500 mg Oral tab 2 times per day [Active]; doxazosin 4 mg Oral tab [Active]; jb4 gabapentin 100 mg Oral cap as needed [Active]; Lantus 100 unit/mL Sub-Q tab as needed [Active]; metoprolol tartrate 25 mg Oral tab 1 tab 2 times per day [Active]; hydralazine 50 mg Oral tab [Active]; Novolog 100 unit/mL Sub-Q tab [Active]; pravastatin Oral [Active]; sertraline 100 mg Oral tab [Active]; tramadol 50 mg Oral tab 1 tab PRN [Active]; - PMHx: 22:00 CHF; chronic kidney disease; cyclic vomiting syndrome; Diabetes - NIDDM; Dialysis; jb4 m-w-f; ENCEPHALOPATHY; Gastroparesis; HD-TTHSat; Hypertension; liver failure; PERIPHERAL NEUROPATHY; Seizures; "mental problems"; - Immunization history:: Adult Immunizations up to date. - Social history:: Smoking status: Patient denies any tobacco usage or history of. Patient/guardian denies using alcohol, street drugs. - Family history:: not pertinent. - Hospitalizations: : The patient was recently seen at [facility]. ROS: 22:09 Constitutional: Negative for fever, chills, and weight loss, Eyes: Negative for injury, rn pain, redness, and discharge, Neck: Negative for injury, pain, and swelling, Cardiovascular: Negative for chest pain, palpitations, and edema, Respiratory: Negative for shortness of breath, cough, wheezing, and pleuritic chest pain, Abdomen/GI: + abd pain/nausea/vomiting/diarrhea : Negative for injury, bleeding, discharge, and swelling, MS/Extremity: Negative for injury and deformity, Skin: Negative for injury, rash, and discoloration, Neuro: + generalized weakness Exam: 22:09 Constitutional: This is a well developed, well nourished patient who is awake, alert, rn and in no acute distress. Head/Face: Normocephalic, atraumatic. Eyes: Periorbital areas with no swelling, redness, or edema. ENT: dry MM Cardiovascular: Mild tachycardia, regular. Respiratory: No increased work of breathing, no retractions or nasal flaring. Abdomen/GI: soft, no focal tenderness Skin: Warm, dry, no cyanosis MS/ Extremity: Pulses equal, no cyanosis. Neuro: Awake and alert, GCS 15 Vital Signs: 22:00 BP 125 / 67; Pulse 66; Resp 18; Temp 98.2(O); Pulse Ox 96% on R/A; Weight 75 kg (R); jb4 Height 5 ft. 3 in. (160.02 cm); Pain 8/10; 23:00 BP 156 / 78; Pulse 73; Resp 17; Pulse Ox 99% on 2 lpm NC; jb4 10/31 00:30 BP 168 / 72; Pulse 66; Resp 16; Pulse Ox 96% on R/A; jb4 10/30 22:00 Body Mass Index 29.29 (75.00 kg, 160.02 cm) jb4 MDM: 10/30 22:02 Patient medically screened. rn 10/31 00:25 Differential diagnosis: Nonspecific abd pain, gastritis, viral gastroenteritis, rn gastroenteritis. Differential diagnosis: pancreatitis. Data reviewed: vital signs, nurses notes, old medical records, lab test result(s), and as a result, I will discharge patient. Counseling: I had a detailed discussion with the patient and/or guardian regarding: the historical points, exam findings, and any diagnostic results supporting the discharge/admit diagnosis, lab results, the need for outpatient follow up, to return to the emergency department if symptoms worsen or persist or if there are any questions or concerns that arise at home. Response to treatment: the patient's symptoms have markedly improved after treatment, and as a result, I will discharge patient. Special discussion: Based on the patient's Hx, exam, and Dx evaluation, there is no indication for emergent surgery or inpatient Tx. It is understood by the patient/guardian that if the Sx's persist or worsen they need to return immediately for re-evaluation. I discussed with the patient/guardian in detail that at this point there is no indication for admission to the hospital. It is understood, however, that if the symptoms persist or worsen the patient needs to return immediately for re-evaluation. ED course: No further vomiting or diarrhea since arrival, stable bloodwork, has dialysis tomorrow, stable vitals, known covid, will dc home with prn zofran and phenergan suppositories. . 10/30 22:03 Order name: Basic Metabolic Panel; Complete Time: 00:20 rn 10/30 22:03 Order name: CBC with Diff rn 10/30 22:03 Order name: Hepatic Function; Complete Time: 00:20 rn 10/30 22:03 Order name: Lipase; Complete Time: 00:20 rn 10/30 23:16 Order name: CBC Smear Scan EDMS 10/30 22:03 Order name: IV Saline Lock; Complete Time: 22:19 rn 10/30 22:03 Order name: Labs collected and sent; Complete Time: 22:19 rn Administered Medications: 10/30 21:27 Not Given (Pt allergic): morphine 4 mg IVP once; RASS on ADMIN: Combtv4, Very Agttd3, jb4 Agttd2, Rstlss1, AlertClm0, Drwsy-1, Lt Sdtn-2, Mod Sdtn-3, Dp Sdtn-4, UnArsble-5 22:51 Drug: Phenergan (promethazine) 12.5 mg Route: IVP; Site: left forearm; jb4 22:54 Drug: Demerol (meperidine) 50 mg Route: IVP; Site: left forearm; jb4 22:56 Drug: NS 0.9% 1000 ml Route: IV; Rate: 1000 ml; Site: left forearm; jb4 10/31 00:49 Not Given (Physician Discretion): Demerol (meperidine) 50 mg IVP once; RASS on ADMIN: jb4 Combtv4, Very Agttd3, Agttd2, Rstlss1, AlertClm0, Drwsy-1, Lt Sdtn-2, Mod Sdtn-3, Dp Sdtn-4, UnArsble-5 Disposition: 10/31/20 00:30 Discharged to Home. Impression: Vomiting, unspecified, Diarrhea, unspecified, Coronavirus infection, unspecified. - Condition is Stable. - Discharge Instructions: Nausea and Vomiting, Adult, COVID-19. - Prescriptions for Zofran ODT 4 mg Oral tablet,disintegrating - place 1 tablet by TRANSLINGUAL route every 8 hours As needed; 20 tablet. Phenergan 25 mg Rectal Suppository - insert 1 suppository by RECTAL route every 6 hours As needed; 12 suppository. - Medication Reconciliation Form, Thank You Letter, Antibiotic Education, Prescription Opioid Use form. - Follow up: Private Physician; When: As needed; Reason: Recheck today's complaints, Re-evaluation by your physician. - Problem is an ongoing problem. - Symptoms have improved. Signatures: Dispatcher [employer] EDMS Dinesh Stallworth MD MD rn Bryson, James, RN RN jb4 Corrections: (The following items were deleted from the chart) 10/30 22:35 22:00 Allergies: Demerol; jb4 jb4 10/31 01:05 00:30 10/31/2020 00:30 Discharged to Home. Impression: Vomiting, unspecified; Diarrhea, jb4 unspecified; Coronavirus infection, unspecified. Condition is Stable. Forms are Medication Reconciliation Form, Thank You Letter, Antibiotic Education, Prescription Opioid Use. Follow up: Private Physician; When: As needed; Reason: Recheck today's complaints, Re-evaluation by your physician. Problem is an ongoing problem. Symptoms have improved. rn
[2020-10-31 01:17] LABS: Blood Morphology Comment NOTED (NOT SEEN); Platelet Estimate DECR; Polychromasia 1+; White Blood Cell Scan OK (OK)
[2020-10-31 01:24] VITALS: TEMP 98.2
[2020-10-31 01:46] VITALS: BP 168/72; O2SAT 96
== END 2020-10-31 01:05 | disposition home or self-care (01) ==
LOC: ER 22:00
DX: U07.1 COVID-19 (principal); R19.7 Diarrhea, unspecified; E11.22 Type 2 diabetes mellitus with diabetic chronic kidney disease; I13.2 Hypertensive heart and chronic kidney disease with heart failure and with stage 5 chronic kidney disease, or end stage renal disease; N18.6 End stage renal disease; I50.9 Heart failure, unspecified; Z99.2 Dependence on renal dialysis; Z79.4 Long term (current) use of insulin; Z88.0 Allergy status to penicillin; Z88.5 Allergy status to narcotic agent; Z88.6 Allergy status to analgesic agent; Z88.8 Allergy status to other drugs, medicaments and biological substances
CPT/HCPCS: 85025; 80048; 36415; 80076; 83690; 96375; 96374; 99284; J2550; J2175; J7030

== ENCOUNTER 2020-11-05 13:39 | Inpatient (IN) | payer OTHER ==
--- OUTSIDE RECORDS SUMMARY | 2020-11-05 13:55 | XMS REPORT | Continuity of Care Document ---
:1980 Author Organization [facility] t Address [address] [place] [address] Care Team Providers Name Role Phone Sharpless [...] NEW 00:00: Vin EVALUATION 00 Active 07/12/2018 [facility] Liver Liver Disease Active [facility] failure, failure, 7[facility] acute acute 00:00: Medical 00 [place] SANJUANA (acute SANJUANA (acute Disease Active [facility] kidney kidney 7-16 [facility] - injury) injury) 00:00: Medical 00 [place] CKD CKD Disease Active [facility] (chronic (chronic 7-16 [facility] - kidney kidney 00:00: Medical disease) disease) 00 Center Acute Acute Disease Active [facility] encephalop encephalop 7-16 [facility] k[facility] - athy athy 00:00: Medical 00 [place] Ulcer of Ulcer of Disease [facility] toe [facility] toe of [facility]16 [facility] - left foot left foot 00:00: Medi tawnya 00 [place] Peripheral Peripheral Disease Active [facility] neuropathy neuropathy 7-16 [facility] - 00:00: Medical 00 [place] Hyperglyce Hyperglyce Disease Active [facility]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 00:00: Medical diabetes diabetes 00 Center mellitus mellitus Gastropare Gastropare Disease Active [facility] sis due to sis due to 716 [facility]i k[facility] - DM DM 00:00: Medical 00 [place] Cyclic Cyclic Disease Active [facility] vomiting vomiting -16 [facility] - syndrome syndrome 00:00: Medica l 00 [place] Anxiety Anxiety Disease Active [facility] 7[facility]16 [facility] - 00[facility]: [facility] 00 [place] Bipolar Bipolar Disease Active [facility] disorder disorder 7-16 [facility] - 00:00: Medical 00 [place] Hypertensi Hypertensi Disease Active [facility] ve ve 7-16 [facility] - emergency emergency 00:00: [facility] tawnya 00 Center CONGESTION Diagnosis Active 2016-07-24 Memoria AMD 2- 01:49:00 l DIARRHEA 00:00: [place] CONGESTION 00 AMD DIARRHEA Active 07/23/2016 [facility] ACUTE RESP Diagnosis Active 2016-09-09 Mem[facility] FAILURE 2- 09:11:00 l ACUTE 00:00: [place] RESP 00 FAILURE Active 07/23/2016 [facility] SOB/SWELLI Diagnosis Active 2015-062016-06-10 Mem[facility] NG 08-11 15:48:00 l 00:00: Vin SOB/SWELLI 00 NG Active 6 [facility] CHF/RENAL Diagnosis Active 2015-062016-06-24 [facility] DISEASE 2- 15:35:00 l 00:00: [place] CHF/RENAL 00 DISEASE Active 06/10/2016 [facility] ABDOMINAL Diagnosis Active 2014-06-26 [facility] PAIN, 1- 05:44:00 l SEIZURES 00:00: [place] ABDOMINAL 00 PAIN, SEIZURES Active 06/26/2013 [facility] ABD PAIN Diagnosis Active 2012-062013-04-19 M emoria 0-25 21:51:00 l ABD PAIN 19:00: Jake n 00 Active 04/14/2013 [facility] GASTROPERI Diagnosis Active 2012-09-13 Memoria SIS - 15:17:00 l 00:00: [place] GASTROPERI 00 SIS Active 08/02/2012 [facility] ABDOMINAL Diagnosis Active 2012-03-14 [facility] PAIN 03-14 16:56:00 l 14:00: [place] ABDOMINAL 00 PAIN Active 03/14/2012 [facility] NAUSEA, Diagnosis Active 2012-03-14 Me moria VOMITING 03-14 13:25:00 l NAUSEA, 08:00: Vin VOMITING 00 Active 03/14/2012 [facility] VOMITTING Diagnosis Active 2011-11-28 Memoria 11-27 16:28:00 l 00:00: [place] VOMITTING 00 Active 11/28/2011 [facility] N/V Diagnosis Active 2011-12-08 Mem oria INABILITY 11-27 11:14:00 l TO N/V 00:00: [place] TOLERATE INABILITY 00 PO TO TOLERATE PO Active 2 [facility] VOMITTING, Diagnosis Active 2011-09-18 [facility] HIGH BLOOD 09-17 09:45:00 l SUGAR 00:00: [place] VOMITTING, 00 HIGH BLOOD SUGAR Active 09/18/2011 [facility] MRSA Problem Active 2012-03-16 Memor ia 08-31 09:11:30 l MRSA 00:00: [place] 00 Active 09/01/2011 Problem 03/16/2012 - Elbow [id number] emily added by Discern Expert. [facility] Methicilli Problem Active 2016-08-02 M emoria n 3-13 02:46:22 l resistant 00:00: [place] Staphyloco Methicilli 00 ccus n aureus resistant (organism) Staphyloco ccus aureus (organism) Active 09/01/2011 Problem 08/02/2016 09/01/11 - Elbow woundProbl em added by Discern Expert. [facility] ELBOW Diagnosis Active 2011-09-10 Mem oria ABSCESS/HY - 16:26:00 l PERGLYCEMI ELBOW 00:00: Nidia nn A ABSCESS/HY 00 PERGLYCEMI A Active 08/31/2011 [facility] VOMITING, Diagnosis Active 2011-09-01 Mem[facility] BLOOD 08-30 03:19:00 l SUGAR 00:00: Vin READINGS VOMITING, 00 HIGH BLOOD SUGAR READINGS HIGH Active 08/31/2011 [facility] Hypokalemi Problem Active 2012-03-16 M emoria a 08-22 09:11:30 l 00:00: Vin Hypokalemi 00 a Active 08/23/2011 Problem 03/16/2012 [facility] VOMITING Diagnosis Active 2011-08-19 M emoria 16:21:00 l VOMITING 00:00: Jake n 00 Active 08/19/2011 [facility] DKA Diagnosis Active 2011-08-24 Mem oria 11:27:00 l DKA 00:00: [place] 00 Active 08/19/2011 [facility] Final: Problem 2016-08-02 Memor ia Acute 02:46:22 l respirator Final: Herm naeem y failure, Acute unspecifie respirator d whether y failure, with unspecifie hypoxia or d whether hypercapni with a hypoxia or hypercapni a 08/02/2016 [facility] Hypoglycem Problem Inactiv 2013-04-22 Memoria ia e 04:46:33 l (disorder) Jake n Hypoglycem ia (disorder) Inactive Problem 04/22/2013 [facility] Hypoglycem Problem Inactiv 2012-03-16 Memoria ia e 09:11:30 l [place] Hypoglycem ia Inactive Problem 03/16/2012 [facility] Diabetes Problem Resolve 2016-08-02 Me moria mellitus d 02:46:22 l (disorder) Diabetes He rmann mellitus (disorder) Resolved Problem 08/02/2016 [facility] Gastropare Problem Resolve 2016-08-02 Memoria sis d 02:46:22 l (disorder) Jake n Gastropare sis (disorder) Resolved Problem 08/02/2016 [facility] Hypertensi Problem Resolve 2016-08-02 Memoria ve d 02:46:22 l disorder, Vin systemic Hypertensi arterial ve (disorder) disorder, systemic arterial (disorder) Resolved Problem 08/02/2016 [facility] Psychiatri Problem Resolve 2016-08-02 Memoria c d 02:46:22 l behavioral Jake n disability Psychiatri (finding) c behavioral disability (finding) Resolved Problem 08/02/2016 [facility] Seizure Problem Resolve 2016-08-02 Mem oria (finding) d 02:46:22 l Seizure Vin (finding) Resolved Problem 08/02/2016 [facility] Hypomagnes Problem Active 2013-04-22 M emoria emia 04:46:33 l [place] Hypomagnes emia Active Problem 04/22/2013 [facility] Hypertensi Problem Active 2012-03-16 M emoria on 09:11:30 l Vin Hypertensi on Active Problem 2 [facility] Nausea and Problem Active 2012-03-16 M emoria vomiting 09:11:30 l Nausea Vin and vomiting Active Problem 03/16/2012 [facility] DMI Diagnosis Active 2011-08-24 Mem oria KETOACD 11:27:00 l UNCONTROLD DMI Jake n KETOACD UNCONTROLD Active [facility] OTHER Diagnosis Active 2011-09-10 Mem oria GENERAL 16:26:00 l SYMPTOMS OTHER Vin GENERAL SYMPTOMS Active [facility] HEART Diagnosis Active 2016-06-24 Mem oria FAILURE, 15:35:00 l UNSPECIFIE HEART Nidia nn D FAILURE, UNSPECIFIE D Active [facility] ACUTE Diagnosis Active 2016-09-09 Mem oria RESPIRATOR 09:11:00 l Y FAILURE, ACUTE Nidia nn UNSP W RESPIRATOR HYPOXI Y FAILURE, UNSP W HYPOXI Active [facility] Nausea and Problem Resolve 2012-2016-08-02 2016-08-02 Memoria vomiting d 6-10 02:46:22 02:46:22 l (disorder) Nausea 00:00: Herm naeem and 00 vomiting (disorder) Resolved 11/29/2011 Problem 08/02/2016 [facility] Hypokalemi Problem Resolve 2016-08-02 2016-08-02 Memoria a d 3-04 02:46:22 02:46:22 l (disorder) 00:00: Jake n Hypokalemi 00 a (disorder) Resolved 08/23/2011 Problem 08/02/2016 [facility] Disorder Problem Resolve 2016-08-02 2016-08-02 Memoria of d 3- 02:46:22 02:46:22 l magnesium Disorder 00:00: Her braden metabolism of 00 (disorder) magnesium metabolism (disorder) Resolved 08/23/2011 Problem 08/02/2016 [facility] Hyperglyce Problem Resolve 2016-08-02 2016-08-02 Memoria maryam d 3- 02:46:22 02:46:22 l (disorder) 00:00: Jake n Hyperglyce 00 maryam (disorder) Resolved 08/20/2011 Problem 08/02/2016 [facility] Ketoacidos Problem Resolve 2016-08-02 2016-08-02 Memoria is in d 2- 02:46:22 02:46:22 l diabetes 00:00: Vin mellitus Ketoacidos 00 (disorder) is in diabetes mellitus (disorder) Resolved 08/19/2011 Problem 08/02/2016 [facility] DKA Problem Resolve 2013-04-22 2013-04-22 Memoria (diabetic d 2 04:46:33 04:46:33 l ketoacidos DKA 00:00: Jake n es) (diabetic 00 ketoacidos es) Resolved 08/19/2011 Problem 04/22/2013 [facility] History of Past Illness Condition Condition Condition Status Onset Resolution Last Treating Co mments Source Name Details Category Date Date Treatment Clinician Date Discharge Problem 2014-06-28 2014-06-28 Memoria Diagnosis: 1- 16:34:37 16:34:37 l Gastropare 06:00: Jake gonzalez sis Discharge 00 Diagnosis: Gastropare sis 06/26/2014 06/28/2014 [facility] Hyperglyce Problem Inactiv 2011-2012-03-16 2012-03-16 Memoria maryam e 3- 09:11:30 09:11:30 l 00:00: Vin Hyperglyce 00 maryam Inactive 08/20/2011 Problem 03/16/2012 [facility] Allergies, Adverse Reactions, Alerts Allergy Allergy Status Severity Reaction(s) Onset Inactive Treating Comm ents Source Name Type Date Date Clinician Zolpidem Drug Active Other (See confusion [facility] Allergy Comments) [facility]-03 [facility] Center Lisinopr Drug Active Other (See Unable to [facility] il Allergy Comments) 01-03 remember [facility] - 00:00: Medical 00 [place] Nitrofur Drug Active Anaphylaxis Liver [facility] [...] [facility] Cigarettes smoked 2017-12-17 [facility] 00[facility]:00 [facility] Center day) - Reported Cigarette 2017-12-17 2017[facility]12[facility]:00 00:00:00 [facility] Alcohol intake 2017-12-17 2017-12-17 [facility] non-drinker of Medical Ce nter alcohol (finding) Tobacco Comment 2017-01-03 2017-01-03 [facility]00:00 she stopped [address] month ago. History of tobacco 2016-12-[address] [facility] use [facility] Center Social History 2016-06-11 2016-06-[address] [facility] fatou 04:38:12 04:38:12 Smoking Status Start Date Stop Date Source Former smoker 2017-12-17 00:00:00 2017-12-17 00:00:[address] [facility] Center Medications Ordered Filled Start Stop [...] l 59 Center hydrALAZINE 2017-0 Yes 100mg [id number] Take [address] (APRESOLINE 7-20 [id number] mg by L ukes - ) 100 MG 15:20: 3D mouth 3 Medica l tablet 59 (three) Center times daily. magnesium 2017-0 Yes 400mg QD Take [address] oxide 7-20 mg by [facility] - (MAG-OX) 15:20: mouth Medical 400 mg 59 daily. Center tablet metoclopram 2017-0 Yes 10mg [id number] Take [address] gadiel HCl 7-20 [id number] by mouth 3 [facility] - (REGLAN) 10 [...] tab, PO, l Tablet 15:07: Daily, # [place] 00 30 tab, 0 Refill(s), Pharmacy: [facility] [id number] Bumex No 0.5 mg, Memoria 2- Route: PO, l 15:00: Drug form: [place] 00 TAB, Daily, Dosing Weight 92.273, kg, Start date: 07/30/16 9:00:00 PRIMER INSERTING 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, Duration: 30 day, Stop date: 08/28/16 9:00:00 PRIMER INSERTING 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 Lasix No Notes: Memoria 2-08 (Same as: l 20:05: Lasix) Vin 00 May cause GI upset. Give with food or milk. Hydralazine No Notes: Mendoza janice 2-08 (Same as: l 06:05: Apresoline [place] 00 ) Push over 5 minutes sodium No 1,000 mL, Memori a chloride 2-05 Rate: 125 l 0.9% 1000 18:26: ml/hr, Jake n ml INJ 00 Infuse 1,000 mL over: 8 hr, Route: IV, Dosing Weight 92.273 kg, Total Volume: 1,000, Start date: 07/26/16 12:26:00 PRIMER INSERTING 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, Duration: 30 day, Stop date: 08/25/16 12:25:00 PRIMER INSERTING 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 Sodium No 500 mL, Memoria Chloride 2-05 500 ml/hr, l 0.154 13:30: Infuse Vin MEQ/ML 00 Over: 1 Injectable hr, Route: Solution IV, 500, Drug form: INJ, ONCE, Priority: STAT, Dosing Weight 92.273 kg, Start date: 07/26/16 7:30:00 PRIMER INSERTING 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, Duration: 1 doses or times, Stop date: 07/26/16 7:30:00 PRIMER INSERTING 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 Insulin No 60 Memoria regular 2-04 [...] sodium 2-04 (Same as: l 03:00: Depakote [place] 00 ER) Once daily dosing; indicated for [...] Weight 92.273, kg, Start date: 07/24/16 9:00:00 PRIMER INSERTING 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, Duration: 30 day, Stop date: 08/22/16 9:00:00 PRIMER INSERTING 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 24 HR No Notes: Memoria Divalproex [...] form: ERTAB, Daily, Start date: 07/24/16 9:00:00 PRIMER INSERTING 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, Duration: 30 day, Stop date: 08/22/16 9:00:00 PRIMER INSERTING 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 Insulin No Notes: Memoria Glargine 2-03 [...] janice 2-03 (Same as: l 14:50: Zofran) [place] 00 MEDICATION WASTE Product Size: 4 mg [...] Blood Glucose Results, Start date: 07/24/16 2:40:00 PRIMER INSERTING 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, Duration: 30 day, Stop date: 08/23/16 2:39:00 PRIMER INSERTING 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 Dextrose No 25 gm, 50 Mendoza janice 50% Syringe 2-03 mL, Route: l 08:40: IVP, Drug Form: INJ, Dosing Weight 92.273, kg, PRN, PRN Blood Glucose Results, Start date: 07/24/16 2:40:00 PRIMER INSERTING 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, Duration: 30 day, Stop date: 08/23/16 2:39:00 PRIMER INSERTING 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 Docusate No Notes: Memoria 2-03 (Same as: [...] (Same as: / 04:09: Duoneb) Ipratropium 00 [place] 0.167 MG/ML Inhalant Solution [DuoNeb] Furosemide 2015-06 [...] INHALATION l 0.09 16:34: , PRN, PRN [place] MG/ACTUAT 00 as needed Metered for Dose [...] Memoria 2-26 (Same as: l 15:00: Lasix) [place] 00 May cause GI upset. Give with food or milk. Magnesium 2015-06 No Notes: Memori a Oxide 2-24 (Same as: l 13:36: Mag-Ox [place] 00 400) Magnesium oxide 417hc=067t g elemental magnesium Dose=____m g magnesium oxide (___mg elemental magnesium) Magnesium 2015-06 No Notes: Memori a Oxide 2-24 (Same as: l 09:47: Mag-Ox [place] 00 400) Magnesium oxide 239kq=380r g elemental magnesium Dose=____m g magnesium oxide [...] Memoria 2-24 (Same as: l 00:00: Norvasc) [place] 00 Insulin 2015-06 No Notes: Memoria Glargine [...] Weight 86.364, kg, Start date: 06/11/16 9:00:00 PRIMER INSERTING 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, Duration: 30 day, Stop date: 07/10/16 9:00:00 PRIMER INSERTING 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 Insulin 2015-06 No Notes: Memoria Glargine [...] sodium, 2-22 porcine l porcine 06:00: heparin [place] 2500 UNT/ML 00 Injectable Solution Albuterol 2015-06 No Notes: Memori a 0.833 MG/ML 2-22 (Same as: l / 03:00: Duoneb) Ipratropium 00 [place] 0.167 MG/ML Inhalant Solution [DuoNeb] gabapentin 2015-06 No 300 mg, Mendoza janice 300 MG Oral 2-22 Route: PO, l Capsule 03:00: Drug form: Herm naeem CAP, Q12H, Dosing Weight 86.364, kg, (CrCl 30 - 59 ml/min), Start date: 06/10/16 21:00:00 PRIMER INSERTING 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, Duration: 30 day, Stop date: 07/10/16 9:00:00 PRIMER INSERTING 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 divalproex 2015-06 No Notes: Memor ia [...] Blood Glucose Results, Start date: 06/10/16 18:50:00 PRIMER INSERTING 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, Duration: 30 day, Stop date: 07/10/16 18:49:00 PRIMER INSERTING 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 Glucagon 2015-06 No 1 mg, Memoria 2-22 Route: IM, l 00:50: Drug form: PDR/INJ, PRN, Dosing Weight 86.364, kg, PRN Blood Glucose Results, Start date: 06/10/16 18:50:00 PRIMER INSERTING 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, Duration: 30 day, Stop date: 07/10/16 18:49:00 PRIMER INSERTING 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 Hydralazine 2015-06 No Notes: Mendoza janice [...] Weight 86.364, kg, Start date: 06/10/16 18:06:00 PRIMER INSERTING 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, Stop date: 06/10/16 18:06:00 PRIMER INSERTING 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 hydrOXYzine 2015-06 No Notes: Mendzoa janice pamoate 08-11 (Same as: l 23:00: Vistaril) Furosemide 2015-06 No 60 mg, Memor ia 08-11 Route: l 22:32: IVP, Drug form: INJ, ONCE, Dosing Weight 86.364, kg, Start date: 06/10/16 16:32:00 PRIMER INSERTING 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, Stop date: 06/10/16 16:32:00 PRIMER INSERTING 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 Lasix 2015-06 No Notes: Memoria - (Same as: l 17:22: Lasix) MEDICATION WASTE Product Size: 40 mg Product Wasted: _0__ mg Albuterol 2015-06 No Notes: Memori a 0.833 MG/ML 08-11 (Same as: l 17:22: Duoneb) Ipratropium 00 [place] 0.167 MG/ML Inhalant Solution [DuoNeb] Promethazin Yes 25 mg = 1 M emoria e 06-26 supp, [place], l Hydrochlori 14:45: Q6H, Jake gonzalez de [...] Rate: 125 l 0.9% IV 04:10: ml/hr, [place] 1,000 mL 00 Infuse over: 8 hr, [...] Marx Rate: 500 l 0.9% 23:45: ml/hr, [place] (Bolus) IV 00 Infuse 500 mL over: [...] - Marx Rate: l 0.9% 22:19: 1,000 [place] (Bolus) IV 00 ml/hr, 500 mL Infuse [...] insulin No Blake 10 unit, Mem oria isophane-SALES DEVELOPMENT COORDINATOR 6-11 Deangelo 0.1 mL, l H 02:00: Route: [place] SUB-Q, Drug form: INJ, Bedtime, Start date: [...] 6-10 Omidvar Route: l 21:33: IVP, ONCE, [place] 00 Start date: 11/29/11 16:33:00, Stop date: [...] 2011-0 No Blake 14 unit, Mem oria isophane-SALES DEVELOPMENT COORDINATOR 6-10 Deangelo 0.14 mL, l H 14:00: [...] 6-10 Deangelo 0.1 mL, l 06:30: Route: [place] 00 SUB-Q, Drug form: SOLN, TID-Before Meals, [...] l IV 1,000 mL 06:29: Brisa ml/hr, [place] 00 Infuse over: 5 hr, Route: IV, [...] mL, Route: l 04:01: Brown IVP, Drug [place] 00 form: INJ, ONCE, Priority: STAT, Start date: 11/28/11 23:01:00, Stop date: 11/28/11 23:01:00 Griffin No Nikki 4 mg, 2 Mendoza janice 6-10 Sarah mL, Route: l 02:31: Brayan IVP, Drug [place] 00 form: INJ, ONCE, Priority: STAT, Start [...] Hughes-Jason 8 unit, M emoria 100 3-30 Curtis SUB-Q, l units/mL 17:47: [place] Q12H, 2 He rmann injectable 42 Pu vial, solution Substituti on Allowed, SOLN Novolin N Yes Hughes-Jason 10 unit, Memoria 100 3-30 Curtis SUB-Q, l units/mL 17:46: [place] Bedtime, H ermann subcutaneou 27 Pu 10 ml, s injection Substituti on Allowed, SUSP Novolin N Yes Hughes-Jason 14 unit, Memoria 100 3-30 [place] SUB-Q, l units/mL 17:44: Eunice QAM, 1 Her braden subcutaneou 37 Pu vial, s injection Substituti on Allowed, SUSP magnesium No Hughes-Jason 400 mg, 1 Memoria oxide 3-30 Curtis tab, l 14:55: [place] Route: PO, Her braden 00 Pu Drug form: TAB, ONCE, Priority: STAT, Start date: 09/18/11 9:55:00, Stop date: 09/18/11 9:55:00 Insulin 2011- No Hughes-Jason 8 unit, Mem oria regular 3-30 Curtis 0.08 mL, l 14:22: Dawson Route: [place] 00 Pu SUB-Q, Drug form: SOLN, ONCE, Priority: STAT, Start date: 09/18/11 9:22:00, Stop date: 09/18/11 9:22:00 Lactated No Hughes-Jason 1,000 mL, Memoria Ringers 3-30 Curtis Rate: l (Bolus) IV 14:16: Eunice 1,000 He rmann 1,000 mL 00 Pu ml/hr, Infuse over: 1 hr, Route: IV, Total Volume: 1,000, [place] Dose, Priority: STAT, Start date: 09/18/11 9:16:00, Duration: 1 doses or times, Stop date: 09/18/11 10:15:00 Sodium No Hughes-Jason 1,000 mL, Me moria Chloride 3-30 Curtis Rate: l 0.9% 14:06: Eunice 1,000 [place] (Bolus) IV 00 Pu ml/hr, 1000 mL Infuse over: 1 hr, Route: IV, kg, Total Volume: 1,000, [place] Dose, Priority: STAT, Start date: 09/18/11 9:06:00, Duration: 1 doses or times, Stop date: 09/18/11 10:05:00 sulfamethox Yes Substituti Memoria azole 3-30 on Allowed l 14:04: Vin 58 Sodium No Hughes-Jason 1,000 mL, Me moria Chloride 3-30 Curtis Rate: l 0.9% 13:56: Dawson 1,000 [place] (Bolus) IV 00 Pu ml/hr, 1000 mL Infuse over: 1 hr, Route: IV, kg, Total Volume: 1,000, [place] Dose, Priority: STAT, Start date: 09/18/11 8:56:00, Duration: 1 doses or times, Stop date: 09/18/11 9:55:00 clindamycin 2011- No Eber L 300 mg, 2 Memoria 3-21 Anabelle cap, l 21:00: Route: PO, [place] 00 Drug form: CAP, Q8H, Start date: 09/09/11 16:00:00, Duration: 30 day, Stop date: 10/09/11 8:00:00 Colace 100 2011-0 Yes Luna 100 mg, 1 Memoria mg oral 3-21 Amelia cap, PO, l capsule 18:47: Verdon BID, 60 Her braden 19 cap, Substituti on Allowed, CAP clindamycin Yes [place] 300 mg, 2 Memoria 150 mg oral 3-21 Amelia cap, PO, l capsule 18:46: Verdon Q8H, 30 Her braden 55 cap, Substituti on Allowed, CAP [place] Yes Luna 1 tab, PO, Memoria 10/325 oral 3-21 Amelia Q4H, PRN, l tablet 18:46: Verdon 30 tab, Herm naeem 36 Pain, Substituti on Allowed, Maintenanc e, TAB [place] No Hollie Donavan 1 tab, Mendoza janice [...] 3-19 Omidvar tab, l 15:30: Route: PO, [place] 00 Drug form: TAB, Daily, Start date: 09/07/11 10:30:00, Duration: 30 day, Stop date: 10/07/11 9:00:00 flumazenil 2011- No Gayle 0.2 mg, 2 Memoria 3-19 Josefina mL, Route: l 14:19: [place] IVP, Drug Jake n 00 form: INJ, [...] Memoria 3-19 Josefina mL, Route: l 14:19: [place] IVP, Drug Jake n 00 form: INJ, ONCE, PRN Nausea & Vomiting, Start date: 09/07/11 9:19:00 hydromorpho No Gayle 0.5 mg, Memoria ne 3-19 Josefina 0.25 mL, l 14:19: [place] Route: Vin IVP, Drug form: INJ, Q5Min, [...] Rate: 125 l 1,000 mL 14:06: ml/hr, [place] 00 Infuse over: 8 hr, Route: IV, Dosing Weight 68.182 kg, Total Volume: 1,000, Start date: 09/07/11 9:06:00, Duration: 30 day, Stop date: 10/07/11 9:05:00 clindamycin No Maximo R 600 mg, Memoria 3-19 Arias Route: l 13:31: IVPB, [place] 00 ONCE, Start date: 09/07/11 8:31:00, Stop [...] 3-17 Wong tab, l 04:00: Route: PO, [place] 00 Drug form: ECTAB, Daily, PRN Constipati [...] Duration: 30 day, Stop date: 10/04/11 18:10:00 [place] 2011-0 No Mahammad 1 tab, Memori a [...] Kavon mL, Route: l 14:50: IVP, Drug [place] 00 form: INJ, ONCE, PRN Nausea & [...] Duration: 30 day, Stop date: 10/04/11 9:49:00 [place] 2011-0 No [place]ism[place] 1 tab, Memoria 10/325 [...] date: 09/03/11 8:39:00, Stop date: 09/03/11 8:39:00 [place] 5/325 2011- No Rosalino 1 tab, M emoria oral tablet 3-15 Kavon Route: PO, l 05:00: Drug Form: [place] 00 TAB, Q4H, Start date: 09/03/11 0:00:00, Duration: 30 day, Stop date: 10/02/11 20:00:00 Geodon 2011-0 No Eber L 120 mg, 3 Memoria 3-15 Anabelle cap, l 02:00: Route: PO, [place] 00 Drug form: CAP, Bedtime, Start date: [...] Duration: 30 day, Stop date: 10/02/11 9:00:00 [place] 5/325 2011-0 No Rosalino 1 tab, M emoria oral tablet 3-14 [facility] Route: PO, l 16:25: Drug Form: TAB, [...] 3-14 Anabelle Route: l 14:00: IVPB, Drug [place] 00 form: INJ, [id number], Start date: 09/02/11 9:00:00, Duration: 30 day, Stop date: 10/01/11 21:00:00 clindamycin 0 No Eber L 600 mg, 4 Memoria (SCIP) 3-14 Anabelle mL, Route: l 10:00: IVPB, [place] 00 [id number], Start date: 09/02/11 5:00:00, Duration: 3 doses or times, Stop date: 09/02/11 21:00:00 clindamycin 2011-0 No Yury 600 mg, 4 Memoria (SCIP) 3-14 Silverio mL, Route: l 04:00: Connally IVPB, [place] 00 [id number], Start date: 09/01/11 23:00:00, Duration: 3 doses or times, Stop date: 09/02/11 15:00:00 insulin 2011-0 No [place] 15 unit, Mendoza janice isophane-SALES DEVELOPMENT COORDINATOR 3-14 Omidvar 0.15 mL, l H 02:00: Route: [place] 00 SUB-Q, Drug form: INJ, Q12H, Start date: 09/01/11 21:00:00, Stop date: 10/01/11 9:00:00 labetalol No Mariaelena-Corea 5 mg, Me moria 3-14 Barbra Route: l 01:07: Feliciano IVP, [place] 00 Q5Min, PRN Elevated BP, Start date: 09/01/11 20:07:00, Duration: 5 doses or times, Stop date: Limited # of times hydrALAZINE No Mariaelena-Corea 5 mg, Memoria 3-14 Barbra Route: l 01:07: Feliciano IVP, [place] 00 Q5Min, PRN Elevated BP, Start date: [...] Route: l 01:00: IVPB, Drug form: INJ, [id number], Start date: 09/01/11 20:00:00, Duration: 30 day, [...] Route: l 00:00: IVPB, Drug form: INJ, [id number], Start date: 09/01/11 19:00:00, Duration: 30 day, [...] mL, Me moria Ringers IV 3-13 Manuel Mosby Rate: 100 l 1,000 mL 19:03: ml/hr, [...] Madden Rate: l 0.9% 14:53: Gurinder 1,000 [place] (Bolus) IV 00 ml/hr, 1,000 mL Infuse [...] L 4 mg, Mem oria Sulfate 08-31 Bishop Route: l 09:06: IVP, ONCE, [place] 00 Priority: STAT, Start date: 09/01/11 4:06:00, Stop date: 09/01/11 4:06:00 Sodium 2011-0 No Bee L 1,000 mL, M emoria Chloride 08-31 Bishop Rate: l 0.9% 08:42: 1,000 [place] (Bolus) IV 00 ml/hr, 1000 mL Infuse [...] L 1,000 mL, M emoria Chloride 08-31 Bishop Rate: l 0.9% 07:29: 1,000 Vin (Bolus) [...] [place] SUB-Q, l units/mL 14:42: BID, 3 [place] subcutaneou 04 vial, 3, s injection 3, [...] [place] mL, Route: l 13:26: IVPB, Drug [place] 00 form: INJ, ONCE, Total dose = [...] mL, Route: l 17:15: Ahmed IVP, Drug [place] 00 form: INJ, Q8H, PRN Nausea, Start date: 08/20/11 11:15:00, Duration: 30 day, Stop date: 09/19/11 11:14:00 insulin 2011-0 No [place] 10 unit, Mem oria isophane-SALES DEVELOPMENT COORDINATOR 3-01 Gato Route: l H 16:00: Rivero SUB-Q, Nidia nn 00 ONCE, Start date: 08/20/11 10:00:00, Stop date: 08/20/11 10:00:00 trazodone 2011-0 Yes 200 mg, 2 Mem oria 100 mg oral 3-01 tab, PO, l tablet 15:37: Bedtime, [place] 27 90 tab, Substituti on Allowed, TAB [...] insulin No Yury 10 unit, Mem oria isophane-SALES DEVELOPMENT COORDINATOR 3- Gato Route: l H 15:00: Rivero SUB-Q, Nidia nn 00 Q12H, Start date: 08/20/11 9:00:00, Duration: 30 day, Stop date: 09/18/11 21:00:00 Geodon 2011- No Yury 60 mg, 3 Mendoza janice 3- Gato cap, l 15:00: Rivero Route: PO, H ermann 00 Drug [...] Allowed insulin No 10 unit, Memori a isophane-SALES DEVELOPMENT COORDINATOR 3- SUB-Q, l H 09:26: BID, [place] 18 Substituti on Allowed NS 1,000 mL [...] 2011- No Yury 18 unit, Mem oria isophane-SALES DEVELOPMENT COORDINATOR 3-01 Gato 0.18 mL, l H 08:58: [...] No Hughes-Jason 4 mg, M emoria 08-19 Curtis Route: l 07:42: Dawson IVP, Drug Herm naeem 00 Pu form: INJ, ONCE, Priority: STAT, Start date: 08/20/11 1:42:00, Stop date: 08/20/11 1:42:00 GI cocktail No Hughes-Jason 30 ml, Memoria 08-19 Curtis Route: PO, l 05:12: Dawson Drug Form: Her braden 00 Pu SUSP, ONCE, STAT, Start date: 08/19/11 23:12:00, Stop date: 08/19/11 23:12:00 ondansetron No Hughes-Jason 4 mg, M emoria 08-19 Curtis Route: PO, l 05:10: Dawson Drug form: Her braden 00 Pu TABDIS, ONCE, Priority: STAT, Start date: 08/19/11 23:10:00, Stop date: 08/19/11 23:10:00 Lactated No Hughes-Jason 1,000 mL, Memoria Ringers 08-19 Curtis Rate: l (Bolus) IV 05:10: Dawson 1,000 He rmann 1000 mL 00 Pu ml/hr, Infuse over: 1 hr, Route: IV, Total Volume: 1,000, Bolus Dose, Priority: STAT, Start date: 08/19/11 23:10:00, Duration: 1 doses or times, Stop date: 08/20/11 0:09:00 Insulin No Hughes-Jason 7 unit, Mem oria regular 08-19 Curtis 0.07 mL, l 04:15: Eunice Route: Vin [...] PO, l capsule, 23:22: Rivero Daily, 30 [place] extended 24 cap, release Substituti on Allowed [...] 15:57:00, Stop date: 08/19/11 15:57:00 morphine No Wililam 4 mg, Memori a Sulfate Wong Route: [...] Systolic (mm Hg) 2016-07-30 14:00:00 Mendoza rial [place] Diastolic (mm Hg) 2016-07-30 14:00:00 Mem o[facility] [place] Respitory Rate 2016-07-30 14:00:00 Memori al Vin [...] al Vin Heart Rate 2016-07-30 06:35:00 [facility] [place] Temperature Oral (F) 2016-07-30 06:35:00 97.0 F [facility] [place] Respitory Rate 2016-07-30 06:35:00 Memori al Vin Systolic (mm Hg) 2016-07-30 06:35:00 Mendoza rial Vin Diastolic (mm Hg) 2016-07-30 06:35:00 Mem orial Vin Weight 2016-07-24 02:13:00 [facility] Vin BMI Calculated 2016-07-24 02:13:00 [facility] [place] Height 2016-07-24 02:13:00 160.02 cm [facility] Vin Respitory Rate 2016-06-15 15:00:00 Memori al Vin Systolic (mm Hg) 2016-06-15 15:00:00 Mendoza rial [place] Diastolic (mm Hg) 2016-06-15 15:00:00 Mem [facility] [place] Respitory Rate 2016-06-15 14:00:00 Memori al Vin Systolic (mm Hg) 2016-06-15 14:00:00 Mendoza rial [place] Diastolic (mm Hg) 2016-06-15 14:00:00 Mem [facility] [place] Respitory Rate 2016-06-15 13:29:00 [facility]ori al [place] Systolic (mm Hg) 2016-06-15 13:29:00 Mendoza rial Vin Diastolic (mm Hg) 2016-06-15 13:29:00 [facility] [place] Temperature Oral (F) 2016-06-14 10:56:00 97.1 F [facility] Vin Temperature Oral (F) 2016-06-14 06:55:00 97.1 F [facility] Temperature Oral (F) 2016-06-12 10:00:00 96.8 F [facility] [place] Weight 2016-06-11 04:25:00 [facility] Height 2016-06-11 04:25:00 160.02 cm [facility] Vin BMI Calculated 2016-06-11 04:25:00 [facility] [place] Heart Rate 2016-06-11 02:04:00 [facility] [place] Heart Rate 2016-06-11 00:00:00 [facility] Vin Heart Rate 2016-06-10 20:30:00 [facility] [place] Weight 2016-06-10 16:04:00 [facility] [place] BMI Calculated 2016-06-10 16:04:00 [facility] [place] Height 2016-06-10 16:04:00 160.02 cm [facility] Vin Temperature Oral (F) 2014-06-26 15:12:00 98.0 F [facility] Systolic (mm Hg) 2014-06-26 15:12:00 Mendoza rial Vin Heart Rate 2014-06-26 15:12:00 [facility] [place] Diastolic (mm Hg) 2014-06-26 15:12:00 [facility] [place] Respitory Rate 2014-06-26 15:12:00 Memori al Vin Systolic (mm Hg) 2014-06-26 13:53:00 Mendoza rial [place] Diastolic (mm Hg) 2014-06-26 13:53:00 Mem orial Vin Respitory Rate 2014-06-26 13:53:00 [facility] [place] Temperature Oral (F) 2014-06-26 13:53:00 98.0 F [facility] [place] Temperature Oral (F) 2014-06-26 12:37:00 98.2 F [facility] [place] Respitory Rate 2014-06-26 12:37:00 [facility] [place] Systolic (mm Hg) 2014-06-26 12:37:00 Mendoza rial Vin Diastolic (mm Hg) 2014-06-26 12:37:00 Mem orial Vin Heart Rate 2014-06-26 09:21:00 [facility] [place] Heart Rate 2014-06-26 06:08:00 [facility] [place] Height 2014-06-26 05:35:00 154.94 cm [facility] Vin Weight 2014-06-26 05:35:00 [facility] Vin BMI Calculated 2014-06-26 05:35:00 [facility] [place] Respitory Rate 2013-04-15 06:10:00 Memori al Vin Diastolic (mm Hg) 2013-04-15 06:10:00 Mem orial Vin Heart Rate 2013-04-15 06:10:00 [facility] [place] Systolic (mm Hg) 2013-04-15 06:10:00 Mendoza rial Vin Temperature Oral (F) 2013-04-15 06:10:00 98.7 F [facility] Vin Respitory Rate 2013-04-15 05:37:00 Memori al Vin Diastolic (mm Hg) 2013-04-15 05:37:00 [facility] [place] Systolic (mm Hg) 2013-04-15 05:37:00 Mendoza rial Vin Temperature Oral (F) 2013-04-15 05:37:00 98.2 F [facility] [place] Heart Rate 2013-04-15 05:37:00 [facility] Vin Height 2013-04-15 02:06:00 160.02 cm [facility] [place] Weight 2013-04-15 02:06:00 [facility] [place] Temperature Oral (F) 2013-04-15 02:06:00 98.6 F [facility] Vin Respitory Rate 2013-04-15 02:06:00 [facility] [place] Heart Rate 2013-04-15 02:06:00 [facility] [place] Diastolic (mm Hg) 2013-04-15 02:06:00 [facility] [place] Systolic (mm Hg) 2013-04-15 02:06:00 Mendoza rial [place] Weight 2012-03-14 21:33:00 [facility] Vin Systolic (mm Hg) 2011-12-01 00:33:00 Mendoza rial [place] Respitory Rate 2011-12-01 00:33:00 [facility] [place] Heart Rate 2011-12-01 00:33:00 [facility] [place] Diastolic (mm Hg) 2011-12-01 00:33:00 Mem orial Vin Temperature Oral (F) 2011-12-01 00:33:00 99.6 F [facility] [place] Diastolic (mm Hg) 2011-11-30 21:00:00 [facility] [place] Heart Rate 2011-11-30 21:00:00 [facility] Vin Respitory Rate 2011-11-30 21:00:00 Memori al Vin Systolic (mm Hg) 2011-11-30 21:00:00 Mendoza rial Vin Temperature Oral (F) 2011-11-30 21:00:00 99.8 F [facility] [place] Respitory Rate 2011-11-30 16:30:00 Memori al Vin Systolic (mm Hg) 2011-11-30 16:30:00 Mendoza rial [place] Diastolic (mm Hg) 2011-11-30 16:30:00 Mem orial Vin Heart Rate 2011-11-30 16:30:00 [facility] Vin Temperature Oral (F) 2011-11-30 16:30:00 99.8 F [facility] Weight 2011-11-29 11:40:00 [facility] Height 2011-11-29 11:40:00 157.48 cm [facility] [place] Weight 2011-11-28 17:16:00 [facility] Vin Weight 2011-09-18 13:30:00 [facility] Height 2011-09-18 13:30:00 154.94 cm [facility] Vin Heart Rate 2011-09-09 13:31:00 [facility] [place] Systolic (mm Hg) 2011-09-09 13:02:00 Mendoza rial [place] Diastolic (mm Hg) 2011-09-09 13:02:00 Mem orial Vin Respitory Rate 2011-09-09 13:02:00 Memori al Vin Temperature Oral (F) 2011-09-09 13:02:00 97.5 F [facility] [place] Diastolic (mm Hg) 2011-09-09 08:00:00 Mem orial Vin Heart Rate 2011-09-09 08:00:00 [facility] Vin Temperature Oral (F) 2011-09-09 08:00:00 98.6 F [facility] Respitory Rate 2011-09-09 08:00:00 [facility] [place] Systolic (mm Hg) 2011-09-09 08:00:00 Mendoza rial Vin Respitory Rate 2011-09-09 04:55:00 Memori al Vin Diastolic (mm Hg) 2011-09-09 04:55:00 Mem orial Vin Systolic (mm Hg) 2011-09-09 04:55:00 Mendoza rial [place] Heart Rate 2011-09-09 04:55:00 [facility] [place] Temperature Oral (F) 2011-09-09 00:55:00 98.7 F [facility] [place] Weight 2011-09-01 19:59:00 [facility] Vin Height 2011-09-01 19:59:00 154.94 cm [facility] Height 2011-09-01 07:01:00 154.94 cm [facility] [place] Weight 2011-09-01 07:01:00 [facility] Vin Respitory Rate 2011-08-23 18:00:00 [facility] [place] Heart Rate 2011-08-23 18:00:00 [facility] Vin Systolic (mm Hg) 2011-08-23 18:00:00 Mendoza rial Vin Diastolic (mm Hg) 2011-08-23 18:00:00 [facility] [place] Temperature Oral (F) 2011-08-23 18:00:00 97.7 F [facility] Vin Heart Rate 2011-08-23 14:24:00 [facility] [place] Temperature Oral (F) 2011-08-23 14:24:00 98.2 F [facility] Vin Diastolic (mm Hg) 2011-08-23 14:24:00 Mem orial Vin Systolic (mm Hg) 2011-08-23 14:24:00 Mendoza rial Vin Respitory Rate 2011-08-23 14:24:00 Memori al Vin Systolic (mm Hg) 2011-08-23 11:15:00 Mendoza rial Vin Diastolic (mm Hg) 2011-08-23 11:15:00 [facility] [place] Temperature Oral (F) 2011-08-23 11:00:00 98.3 F [facility] [place] Heart Rate 2011-08-23 11:00:00 [facility] Vin Respitory Rate 2011-08-22 22:00:00 Memori al Vin Height 2011-08-20 09:12:00 154.94 cm [facility] [place] Weight 2011-08-20 09:12:00 [facility] Height 2011-08-19 20:28:00 154.94 cm [facility] [place] Weight 2011-08-19 20:28:00 [facility] [place] Procedures Procedure Date / Time Performed Performing Clinician [facility] e Emergency department visit 2013-04-15 05:00:00 [facility] [place] for the evaluation and management of a patient, which requires these 3 kamara components within the constraints imposed by the urgency of the patient's clinical condition and/or mental status: A comprehensive history; A comprehensi Injection or Infusion of 2013-04-15 05:00:00 Mem orial Vin Other Therapeutic or Prophylactic Substance Intravenous infusion, 2013-04-15 05:00:00 Mem[facility] al [place] hydration; each additional hour (List separately in addition to code for primary procedure) Therapeutic, prophylactic, 2013-04-15 05:00:00 M [facility] Vin or diagnostic injection (specify substance or drug); each additional sequential intravenous push of a new substance/drug (List separately in addition to code for primary procedure) Therapeutic, prophylactic, 2013-04-15 05:00:00 [facility] [place] or diagnostic injection (specify substance or drug); intravenous push, single or initial substance/drug [facility] Encounters Start End Encounter Admission Attending Care Care Encounter Source Date/Time Date/Time Type Type Clinicians Facility Department ID 2020-10-27 2020-10-27 Keyona Olivares [facility] [id number] 00:00:00 00:00:00 (Out) Oz Sims [id number] Fausto [id number] Professio [id number] nal 059 [facility] 2020-09-24 2020-09-24 Refill Carlos [facility] [id number] 00:00:00 00:00:00 Jose Luis [place] [id number] Fausto [id number] Professio [id number] nal 220 [facility] 2020-09-09 2020-09-09 [id number] 00:00:00 00:00:00 Outreach Earl PRIMARY [id number] Manuel CARE [id number] PAVILLION [id number] 2020-07-23 2020-07-23 Office Black [facility] [id number] 13:31:20 14:37:36 Visit Deja PRIMARY [id number] A CARE [id number] PAVILLION [id number] 2020-01-25 2020-01-31 Inpatient 1 Rei Waldron [facility] [id number] 21:31:00 18:15:00 Rei Waldron [facility] 2016-07-23 2016-07-30 Outpatient Yaquelin [facility] [id number] 20:04:00 10:20:00 Luna 10 2016-06-10 2016-06-15 Outpatient Franck [facility] [id number] 10:02:00 12:23:00 Joe Yan 09 2014-06-25 2014-06-26 Outpatient Courtney [facility] [id number] 23:25:00 09:14:00 Atul Priest 2013-04-14 2013-04-15 Outpatient [facility] [id number] Memoria 21:04:00 01:45:00 Vin [facility] 2013-04-14 2013-04-15 Outpatient [facility] [id number] Memoria 21:04:00 01:45:00 Vin Serrano l [facility] 2013-04-14 2013-04-15 [facility] [id number] [facility]:04[facility] [address] [place] [address] [facility] 2013-04-14 2013-04-15 [facility] [id number] [facility] 21:04[facility]00 01:45:00 [place] Vin [address] [place] [address] 2013-04-14 2013-04-15 [facility] [id number] [facility] 21:04:00 01:45:[address] [facility] Results Test Description Test Time Test Comments [...] the main Lab for analysi s. Urine [id number] 11:32:13 Test Item Value Reference Range Interpretation [...] Escherichia coli C Urine Added by [id number] 07:52:10 Test Item Value Reference Range Interpretation Comments Glucose POC (test 160 mg/dL 70-115 H If you con high school business teacher your code = Glucose POC) patient critically ill, the Merlin-Accu Check Infrom II meter should not be used for Glucose determination. Draw a venous Glucose and send to the main Lab for analysis. POC [id number] 19:32:05 Test Item Value Reference Range Interpretation Comments Glucose POC (test 184 mg/dL 70-115 H If you con high school business teacher your code = Glucose POC) patient critically ill, the Merlin-Accu Check Infrom II meter should not be used for Glucose determination. Draw a venous Glucose and send to the main Lab for analysis. POC [id number] 17:16:35 Test Item Value Reference Range Interpretation Comments Glucose POC (test 281 mg/dL 70-115 H Notify RN or MDIf you code = Glucose POC) consider your patient critically ill, the Merlin-Accu Chec k Infrom II meter should not be used for Glucos e determination. Draw a venous Glucose and send to the main Lab for analysis. POC [id number] 12:00:38 Test Item Value Reference Range Interpretation Comments Glucose POC (test 138 mg/dL 70-115 H Notify RN or MDIf you code = Glucose POC) consider your patient critically ill, the Merlin-Accu Chec k Infrom II meter should not be used for Glucos e determination. Draw a venous Glucose and send to the main Lab for analysis. POC [id number] 07:41:32 Test Item Value Reference Range Interpretation Comments Glucose POC (test 206 mg/dL 70-115 H Notify RN or MDIf you code = Glucose POC) consider your patient critically ill, the Merlin-Accu Chec k Infrom II meter should not be used for Glucos e determination. Draw a venous Glucose and send to the main Lab for analysis. Urinalysis [id number] 21:07:21 Test Item Value Reference Range Interpretation Comments UA WBC (test code = UA WBC) TNTC 0-5 A UA RBC (test code = UA RBC) 6-10 0-5 A UA Bacteria (test code = UA Bacteria) Profuse A UA Squam Epithelial (test code = UA 6-10 A Squam Epithelial) Urinalysis with Culture, if [id number] 20:35:14 Test Item Value Reference Range Interpretation [...] Micro Indicated Not Indicated A Ind?) POC [id number] 19:06:34 Test Item Value Reference Range Interpretation Comments Glucose POC (test 207 mg/dL 70-115 H If you con high school business teacher your code = Glucose POC) patient critically ill, the Merlin-Accu Check Infrom II meter should not be used for Glucose determination. Draw a venous Glucose and send to the main Lab for analysis. POC [id number] 17:12:03 Test Item Value Reference Range Interpretation Comments Glucose POC (test 173 mg/dL 70-115 H Notify RN or MDIf you code = Glucose POC) consider your patient critically ill, the Merlin-Accu Chec k Infrom II meter should not be used for Glucos e determination. Draw a venous Glucose and send to the main Lab for analysis. POC [id number] 11:58:01 Test Item Value Reference Range Interpretation Comments Glucose POC (test 289 mg/dL 70-115 H Notify RN or MDIf you code = Glucose POC) consider your patient critically ill, the Merlin-Accu Chec k Infrom II meter should not be used for Glucos e determination. Draw a venous Glucose and send to the main Lab for analysis. POC [id number] 08:19:37 Test Item Value Reference Range Interpretation Comments Glucose POC (test 201 mg/dL 70-115 H Notify RN or MDIf you code = Glucose POC) consider your patient critically ill, the Merlin-Accu Chec k Infrom II meter should not be used for Glucos e determination. Draw a venous Glucose and send to the main Lab for analysis. POC [id number] 20:37:35 Test Item Value Reference Range Interpretation Comments Glucose POC (test 272 mg/dL 70-115 H If you con high school business teacher your code = Glucose POC) patient critically ill, the Merlin-Accu Check Infrom II meter should not be used for Glucose determination. Draw a venous Glucose and send to the main Lab for analysis. POC [id number] 17:23:05 Test Item Value Reference Range Interpretation Comments Glucose POC (test 229 mg/dL 70-115 H If you con high school business teacher your code = Glucose POC) patient critically ill, the Merlin-Accu Check Infrom II meter should not be used for Glucose determination. Draw a venous Glucose and send to the main Lab for analysis. POC [id number] 12:01:01 Test Item Value Reference Range Interpretation Comments Glucose POC (test 155 mg/dL 70-115 H If you con high school business teacher your code = Glucose POC) patient critically ill, the Merlin-Accu Check Infrom II meter should not be used for Glucose determination. Draw a venous Glucose and send to the main Lab for analysis. POC [id number] 08:07:32 Test Item Value Reference Range Interpretation Comments Glucose POC (test 248 mg/dL 70-115 H If you con high school business teacher your code = Glucose POC) patient critically ill, the Merlin-Accu Check Infrom II meter should not be used for Glucose determination. Draw a venous Glucose and send to the main Lab for analysis. IG [id number] 06:50:39 Test Item Value Reference Range Interpretation Comments IG (test code = IG) 0.7 % 0.0-5.0 IG Abs (test code = IG Abs) 0 x10 N Complete Blood Count with [id number] 06:50:38 Test Item Value Reference Range Interpretation [...] code = IPF) 0 % N Automated [id number] 06:50:38 Test Item Value Reference Range Interpretation Comments Neutro Auto (test code = Neutro 50.3 % 36.0-70.0 Auto) Lymph Auto (test code = Lymph Auto) 38.6 % 12.0-44.0 Nicollet Auto (test code = Nicollet Auto) 7.3 % 0.0-11.0 Eos, Auto (test code = Eos, Auto) 2.4 % 0.0-7.0 Basophil Auto (test code = Basophil 0.7 % 0.0-2.0 Auto) Neutro Absolute (test code = Neutro 3.0 x10 1.6-7.4 Absolute) Lymph Absolute (test code = Lymph 2.28 x10 .50-4.60 Absolute) Nicollet Absolute (test code = Nicollet .43 x10 .00-1.20 Absolute) Eos Absolute (test code = Eos 0.14 x10 0.00-0.74 Absolute) Baso Absolute (test code = Baso 0.04 x10 0.00-0.21 Absolute) Basic Metabolic [id number] 05:38:20 Test Item Value Reference Range Interpretation [...] = Lipemia) 0 mg/dL 8-11 Basic Metabolic [id number] 05:38:20 Test Item Value Reference Range Interpretation [...] = 0 mg/dL 8-11 Lipemia) Basic Metabolic [id number] 05:38:20 Test Item Value Reference Range Interpretation [...] ag e have not been validated by [facility] MDRD study and should be interpreted [...] ag e have not been validated by [facility] MDRD study and should be interpreted [...] code = 0 mg/dL 8-11 Lipemia) POC [id number] 20:28:33 Test Item Value Reference Range Interpretation Comments Glucose POC (test 169 mg/dL 70-115 H If you con high school business teacher your code = Glucose POC) patient critically ill, the Merlin-Accu Check Infrom II meter should not be used for Glucose determination. Draw a venous Glucose and send to the main Lab for analysis. POC [id number] 16:39:30 Test Item Value Reference Range Interpretation Comments Glucose POC (test 103 mg/dL 70-115 If you con high school business teacher your code = Glucose POC) patient critically ill, the Merlin-Accu Check Infrom II meter should not be used for Glucose determination. Draw a venous Glucose and send to the main Lab for analysis. RPR [id number] 12:08:56 Test Item Value Reference Range Interpretation Comments RPR Qual (test code = RPR Qual) Non-Reactive Non-Reactive Reactive Control (test code = Reactive Reactive Control) Weak Reactive Control (test Weak Reactive code = Weak Reactive Control) Non-Reactive Control (test code Non-Reactive = Non-Reactive Control) Lot # (test code = Lot #) [id number] N Expiration Dt (test code = 03-20-2021 N Expiration Dt) POC [id number] 11:52:31 Test Item Value Reference Range Interpretation Comments Glucose POC (test 250 mg/dL 70-115 H If you con high school business teacher your code = Glucose POC) patient critically ill, the Merlin-Accu Check Infrom II meter should not be used for Glucose determination. Draw a venous Glucose and send to the main Lab for analysis. POC [id number] 07:55:29 Test Item Value Reference Range Interpretation Comments Glucose POC (test 205 mg/dL 70-115 H If you con high school business teacher your code = Glucose POC) patient critically ill, the Merlin-Accu Check Infrom II meter should not be used for Glucose determination. Draw a venous Glucose and send to the main Lab for analysis. Lipid [id number] 05:46:04 Test Item Value Reference Range Interpretation [...] LDL/HDL Ratio=L DL Calc/HDL Chol Thyroid Stimulating [id number] 05:46:04 Test Item Value Reference Range Interpretation Comments TSH (test code = TSH) 3.274 mcIU/mL 0.550-4.780 Hemoglobin [id number] 05:41:08 Test Item Value Reference Range Interpretation Comments Hemoglobin A1c (test code 7.6 % 4.0-5.8 H Di abetic >=6.5 = Hemoglobin A1c) %Prediabet es 5.7-6.4 %Normal <5.7 % Hepatitis B Surface [id number] 21:19:36 Test Item Value Reference Range Interpretation Comments Hep Bs Ag (test code = Hep Bs Non-Reactive Non-Reactive Ag) Novel Coronavirus SARS-CoV-2, [id number] 11:16:16 Test Item Value Reference Range Interpretation [...] Emergency Use Authorization." Novel Coronavirus (COVID-19), EMANUEL [id number] 11:11:24TNPTest not sent and performed at [facility].Rapid was perfomed in Microbiology.Wrong covid test was ord ered.Urine [id number] 00:17:49 Test Item Value Reference Range Interpretation [...] Propoxyphene Confirmation wi thin 7 days. Alcohol [id number] 00:17:29 Test Item Value Reference Range Interpretation Comments Ethanol Level 9.0 mg/dL N The pharmacolo gical (test code = response to blo od alcohol Ethanol Level) levels may va ry from individual to i ndividual. The fatal omkar ntration has been report ed to be >400 mg/dl. Comprehensive Metabolic [id number] 00:17:28 Test Item Value Reference Range Interpretation [...] = Lipemia) 0 g/dL 1-2 Comprehensive Metabolic [id number] 00:17:28 Test Item Value Reference Range Interpretation [...] = 0 g/dL 1-2 Lipemia) Comprehensive Metabolic [id number] 00:17:28 Test Item Value Reference Range Interpretation [...] g/dL 1-2 Lipemia) Complete Blood Count with [id number] 23:26:28 Test Item Value Reference Range Interpretation [...] code = IPF) 0 % N Automated [id number] 23:26:28 Test Item Value Reference Range Interpretation Comments Neutro Auto (test code = Neutro 67.1 % 36.0-70.0 Auto) Lymph Auto (test code = Lymph Auto) 23.3 % 12.0-44.0 Nicollet Auto (test code = Nicollet Auto) 5.8 % 0.0-11.0 Eos, Auto (test code = Eos, Auto) 2.3 % 0.0-7.0 Basophil Auto (test code = Basophil 0.8 % 0.0-2.0 Auto) Neutro Absolute (test code = Neutro 6.0 x10 1.6-7.4 Absolute) Lymph Absolute (test code = Lymph 2.10 x10 .50-4.60 Absolute) Nicollet Absolute (test code = Nicollet .52 x10 .00-1.20 Absolute) Eos Absolute (test code = Eos 0.21 x10 0.00-0.74 Absolute) Baso Absolute (test code = Baso 0.07 x10 0.00-0.21 Absolute) IG [id number] 23:26:28 Test Item Value Reference Range Interpretation Comments IG (test code = IG) 0.7 % 0.0-5.0 IG Abs (test code = IG Abs) 0 x10 N HERPES VIRUS ANTIBODY, [id number] 21:46:00 Test Item Value Reference Range Interpretation Comments HERPES VIRUS IGM (BEAKER) Negative SE E ATTACHMENT (test code = 1808) BLOOD [id number] 06:00:00 Test Item Value Reference Range Interpretation Comments CULTURE (BEAKER) (test No growth in 5 days code = 1095) BLOOD [id number] 06:00:00 Test Item Value Reference Range Interpretation Comments CULTURE (BEAKER) (test No growth in 5 days code = 1095) POCT-GLUCOSE [id number] 12:11:00 Test Item Value Reference Range Interpretation Comments POC-GLUCOSE METER 154 mg/dL 70-110 H TESTED AT [facility] 6720 (BEAKER) (test code = [facility]ERT[facility] Eduin [facility] 1538) [address] POCT-GLUCOSE [id number] 07:53:00 Test Item Value Reference Range Interpretation Comments POC-GLUCOSE METER 87 mg/dL 70-110 TESTED AT [facility] 6720 (BEAKER) (test code = [facility] Eduin [facility] [address] 1538) POCT-GLUCOSE [id number] 06:49:00 Test Item Value Reference Range Interpretation Comments POC-GLUCOSE METER 79 mg/dL 70-110 TESTED AT [place] [id number] (BEAKER) (test code = [facility] Eduin [facility] [address] 1538) COMPREHENSIVE METABOLIC [id number] 06:15:00 Test Item Value Reference Range Interpretation [...] S NOT APPLICABLE FOR DIALYSIS PATIEN TS. [id number] 06:11:00 Test Item Value Reference Range Interpretation Comments MAGNESIUM (BEAKER) (test code = 2.1 mg/dL 1.6-2.6 627) HEPATIC FUNCTION [id number] 06:11:00 Test Item Value Reference Range Interpretation [...] code = 513 U/L 6-55 H 347) [id number] 05:30:00 Test Item Value Reference Range Interpretation Comments FIBRINOGEN LEVEL (BEAKER) (test 368 mg/dl 225-434 code = 658) [id number] 05:30:00 Test Item Value Reference Range Interpretation Comments PARTIAL THROMBOPLASTIN TIME 42.2 seconds 22.5-36.0 H (BEAKER) (test code = 760) PROTHROMBIN [id number] 05:29:00 Test Item Value Reference Range Interpretation Comments PROTIME (BEAKER) (test code = 14.8 seconds 11.7-14.7 H 759) INR (BEAKER) (test code = 370) 1.2 <=5.9 RECOMMENDED COUMADIN/WARFARIN INR THERAPY RANGESSTANDARD DOSE: 2.0 - 3.0 Includes: PROPHYLAXIS forvenous thrombosis, systemic embolization; TREATMENT for venous thrombosis and/or pulmonary embolus.HIGH RISK: Target INR is 2.5-3.5 for patients with mechanical heart valves.POCT-GLUCOSE [id number] 21:09:00 Test Item Value Reference Range Interpretation Comments POC-GLUCOSE METER 178 mg/dL 70-110 H TESTED AT [place] [address] ([facility]) (test code = [facility] 1538) [address] POCT-GLUCOSE [id number] 17:18:00 Test Item Value Reference Range Interpretation Comments POC-GLUCOSE METER 178 mg/dL 70-110 H TESTED AT [place] [address] ([facility]) (test code = [facility] 1538) [address] POCT-GLUCOSE [id number] 13:48:00 Test Item Value Reference Range Interpretation Comments POC-GLUCOSE METER 150 mg/dL 70-110 H TESTED AT [place] [address] ([facility]) (test code = [facility] 1538) [address] FACTOR 5 ACTIVITY (BLEEDING RISK)2017-01-06 10:04:00 Test Item Value Reference Range Interpretation Comments FACTOR V ACTIVITY ([facility]) (test code 90.0 % 60.0-150.0 = 665) Effective 10/24/2013: Reference Range Change-Adult onlyNew: 60.0-150.0 Previous: 50.0-150.0CYTOMEGALOVIRUS ANTIBODY, [id number] 09:42:00 Test Item Value Reference Range Interpretation Comments CYTOMEGALOVIRUS IGM ANTIBODY Negative ([facility]) (test code = 816) HERPES VIRUS ANTIBODY, [id number] 08:59:00 Test Item Value Reference Range Interpretation Comments 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[facility]) (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 G 1807) CYTOMEGALOVIRUS ANTIBODY, [id number] 08:59:00 Test Item Value Reference Range Interpretation Comments CYTOMEGALOVIRUS IGG ANTIBODY Positive ([facility]) (test code = 790) EBV-VCA ANTIBODY, [id number] 08:59:00 Test Item Value Reference Range Interpretation Comments JASE-WALL VCA IGG ([facility]) (test Positive code = 983) EBV-VCA ANTIBODY, [id number] 08:59:00 Test Item Value Reference Range Interpretation Comments JASE-WALL VCA IGM ([facility]) (test Negative code = 984) POCT-GLUCOSE [id number] 07:59:00 Test Item Value Reference Range Interpretation Comments POC-GLUCOSE METER 81 mg/dL 70-110 TESTED AT [place] [address] ([facility]) (test code = [facility] [address] 1538) COMPREHENSIVE METABOLIC [id number] 06:23:00 Test Item Value Reference Range Interpretation [...] S NOT APPLICABLE FOR DIALYSIS PATIEN TS. [id number] 06:17:00 Test Item Value Reference Range Interpretation Comments MAGNESIUM (BEAKER) (test code = 1.8 mg/dL 1.6-2.6 627) HEPATIC FUNCTION [id number] 06:17:00 Test Item Value Reference Range Interpretation [...] code = 779 U/L 6-55 H 347) [id number] 06:00:00 Test Item Value Reference Range Interpretation Comments FIBRINOGEN LEVEL (BEAKER) (test 390 mg/dl 225-434 code = 658) [id number] 06:00:00 Test Item Value Reference Range Interpretation Comments PARTIAL THROMBOPLASTIN TIME 40.2 seconds 22.5-36.0 H (BEAKER) (test code = 760) PROTHROMBIN TIME/[id number] 05:59:00 Test Item Value Reference Range Interpretation Comments PROTIME (BEAKER) (test code = 14.6 seconds 11.7-14.7 759) INR (BEAKER) (test code = 370) 1.2 <=5.9 RECOMMENDED COUMADIN/WARFARIN INR THERAPY RANGESSTANDARD DOSE: 2.0 - 3.0 Includes: PROPHYLAXIS forvenous thrombosis, systemic embolization; TREATMENT for venous thrombosis and/or pulmonary embolus.HIGH RISK: Target INR is 2.5-3.5 for patients with mechanical heart valves.POCT-GLUCOSE [id number] 21:46:00 Test Item Value Reference Range Interpretation Comments POC-GLUCOSE METER 153 mg/dL 70-110 H TESTED AT [place] [address] ([facility]) (test code = [place] 1538) [address] POCT-GLUCOSE [id number] 18:47:00 Test Item Value Reference Range Interpretation Comments POC-GLUCOSE METER 181 mg/dL 70-110 H TESTED AT [place] [address] ([facility]) (test code = [place] 1538) [address] POCT-GLUCOSE [id number] 12:40:00 Test Item Value Reference Range Interpretation Comments POC-GLUCOSE METER 178 mg/dL 70-110 H TESTED AT [place] [address] ([facility]) (test code = [place] [facility] 1538) [address] POCT-GLUCOSE [id number] 07:51:00 Test Item Value Reference Range Interpretation Comments POC-GLUCOSE METER 166 mg/dL 70-110 H TESTED AT [facility] 6720 (BEAKER) (test code = [place] [facility] 1538) [address] COMPREHENSIVE METABOLIC [id number] 03:26:00 Test Item Value Reference Range Interpretation [...] S NOT APPLICABLE FOR DIALYSIS PATIEN TS. [id number] 03:22:00 Test Item Value Reference Range Interpretation Comments MAGNESIUM (BEAKER) (test code = 1.4 mg/dL 1.6-2.6 L 627) HEPATIC FUNCTION [id number] 03:22:00 Test Item Value Reference Range Interpretation [...] code = 1009 U/L 6-55 H 347) [id number] 03:12:00 Test Item Value Reference Range Interpretation Comments AMMONIA (BEAKER) (test code = 348) 29 mol/L 18-72 [id number] 03:10:00 Test Item Value Reference Range Interpretation Comments PARTIAL THROMBOPLASTIN TIME 42.3 seconds 22.5-36.0 H (BEAKER) (test code = 760) PROTHROMBIN TIME/[id number] 03:09:00 Test Item Value Reference Range Interpretation Comments PROTIME (BEAKER) (test code = 16.4 seconds 11.7-14.7 H 759) INR (BEAKER) (test code = 370) 1.3 <=5.9 RECOMMENDED COUMADIN/WARFARIN INR THERAPY RANGESSTANDARD DOSE: 2.0 - 3.0 Includes: PROPHYLAXIS forvenous thrombosis, systemic embolization; TREATMENT for venous thrombosis and/or pulmonary embolus.HIGH RISK: Target INR is 2.5-3.5 for patients with mechanical heart valves.[id number] 03:09:00 Test Item Value Reference Range Interpretation Comments FIBRINOGEN LEVEL (BEAKER) (test 413 mg/dl 225-434 code = 658) CBC W/PLT COUNT & AUTO [id number] 03:09:00 Test Item Value Reference Range Interpretation [...] L 0.00-0.20 (test code = 417) 0.00POCT-GLUCOSE [id number] 22:33:00 Test Item Value Reference Range Interpretation Comments POC-GLUCOSE METER 230 mg/dL 70-110 H TESTED AT [facility] 6720 (BEAKER) (test code = [place] 1538) [address] POCT-GLUCOSE [id number] 18:17:00 Test Item Value Reference Range Interpretation Comments POC-GLUCOSE METER 222 mg/dL 70-110 H TESTED AT [facility] 6720 (BEAKER) (test code = [place] 1538) [address] COMPREHENSIVE METABOLIC [id number] 16:59:00 Test Item Value Reference Range Interpretation [...] PATIEN TS. PERIPHERAL BLOOD SMEAR - PATHOLOGIST [id number] 15:30:00 Test Item Value Reference Range Interpretation Comments RBC MORPHOLOGY Polychromasia [facility] (test code = 2846) RBC MORPHOLOGY Anisocytosis ([facility]) (test code = 32847) PERIPHERAL SMR REVIEW Cell counts confirmed ([facility]) (test code = 6363) [id number] Josefina Lara M.D. ([facility]) (test code = (electronic signature) 1449) PROTHROMBIN [id number] 15:12:00 Test Item Value Reference Range Interpretation Comments PROTIME ([facility] (test code = 16.6 seconds 11.7-14.7 H 759) INR ([facility] (test code = 370) 1.4 <=5.9 RECOMMENDED COUMADIN/WARFARIN INR THERAPY RANGESSTANDARD DOSE: 2.0 - 3.0 Includes: PROPHYLAXIS forvenous thrombosis, systemic embolization; TREATMENT for venous thrombosis and/or pulmonary embolus.HIGH RISK: Target INR is 2.5-3.5 for patients with mechanical heart valves.ANTI-NUCLEAR ANTIBODY (IVETTE)2017-01-04 14:32:00 Test Item Value Reference Range Interpretation Comments ANTI-NUCLEAR ANTIBODY (IVETTE) ([facility]) Negative Negative (test code = 418) POCT-GLUCOSE [id number] 12:47:00 Test Item Value Reference Range Interpretation Comments POC-GLUCOSE METER 212 mg/dL 70-110 H TESTED AT [facility] 6720 ([facility]) (test code = [place] 1538) [address] [id number] 12:34:00 Test Item Value Reference Range Interpretation Comments RPR SCREEN ([facility]) (test code = Nonreactive Nonreactive 420) CLOSTRIDIUM DIFFICILE TOXIN [id number] 10:12:00 Test Item Value Reference Range Interpretation Comments CLOSTRIDIUM DIFFICILE TOXIN, PCR Not Detected Not Detected ([facility]) (test code = 1525) This qualitative [...] Reference Range Change-Adult onlyNew: 60.0-150.0 Previous: 50.0-150.0POCT-GLUCOSE [id number] 06:40:00 Test Item Value Reference Range Interpretation Comments POC-GLUCOSE METER 167 mg/dL 70-110 H TESTED AT [facility] 6720 ([facility]) (test code = [place] 1538) [address] COMPREHENSIVE METABOLIC [id number] 04:08:00 Test Item Value Reference Range Interpretation [...] ESTIM ATED GFR. Specimen slightly ictericHEPATIC FUNCTION [id number] 04:06:00 Test Item Value Reference Range Interpretation [...] 1091 U/L 6-55 H 347) Specimen slightly [id number] 04:01:00 Test Item Value Reference Range Interpretation Comments FIBRINOGEN LEVEL (BEAKER) (test 379 mg/dl 225-434 code = 658) [id number] 04:01:00 Test Item Value Reference Range Interpretation Comments PARTIAL THROMBOPLASTIN TIME 40.7 seconds 22.5-36.0 H (BEAKER) (test code = 760) PROTHROMBIN TIME/[id number] 04:00:00 Test Item Value Reference Range Interpretation [...] L 0.00-0.20 (test code = 417) 0.00POCT-GLUCOSE [id number] 00:19:00 Test Item Value Reference Range Interpretation Comments POC-GLUCOSE METER 159 mg/dL 70-110 H TESTED AT [facility] 6720 (BEAKER) (test code = [place] [facility] 1538) [address] POCT-GLUCOSE [id number] 18:56:00 Test Item Value Reference Range Interpretation Comments POC-GLUCOSE METER 192 mg/dL 70-110 H TESTED AT [place] [address] [facility] (test code = [facility] Eduin [facility] 1538) [address] COMPREHENSIVE METABOLIC [id number] 16:55:00 Test Item Value Reference Range Interpretation [...] CALCULATE ESTIM ATED GFR. Specimen slightly ictericPROTHROMBIN TIME/[id number] 16:37:00 Test Item Value Reference Range Interpretation Comments PROTIME (BEAKER) (test code = 20.9 seconds 11.7-14.7 H 759) INR (BEAKER) (test code = 370) 1.8 <=5.9 RECOMMENDED COUMADIN/WARFARIN INR THERAPY RANGESSTANDARD DOSE: 2.0 - 3.0 Includes: PROPHYLAXIS forvenous thrombosis, systemic embolization; TREATMENT for venous thrombosis and/or pulmonary embolus.HIGH RISK: Target INR is 2.5-3.5 for patients with mechanical heart valves.HEPATITIS B SURFACE [id number] 14:05:00 Test Item Value Reference Range Interpretation Comments HEPATITIS B SURFACE ANTIBODY < mIU/mL <8.0 (BEAKER) (test code = 647) HEPATITIS B CORE ANTIBODY, [id number] 13:43:00 Test Item Value Reference Range Interpretation Comments HEPATITIS B CORE TOTAL ANTIBODY Nonreactive Nonreactive (BEAKER) (test code = 497) BLOOD GAS, [id number] 13:35:00 Test Item Value Reference Range Interpretation [...] code = 1819) 28.0 % URINALYSIS W/ [id number] 13:16:00 Test Item Value Reference Range Interpretation [...] 1584) SOURCE(BEAKER) (test code = Urine, [place] 2062) VITAMIN D, 62-[id number] 13:14:00 Test Item Value Reference Range Interpretation Comments VITAMIN D 25-OH (BEAKER) (test code = < ng/mL 13.0-47.8 L 2764) ALPHA FETOPROTEIN (AFP), TUMOR [id number] 13:06:00 Test Item Value Reference Range Interpretation Comments ALPHA-FETOPROTEIN (BEAKER) (test code < ng/mL <10.0 = 1094) Effective 05/08/2014: Reference Range ChangeNew: <10.0 Previous: 0.0-8.0 HEMOGLOBIN [id number] 13:05:00 Test Item Value Reference Range Interpretation Comments HEMOGLOBIN A1C (BEAKER) (test code = 7.6 % 4.3-6.1 H 368) CARCINOEMBRYONIC ANTIGEN (CEA)2017-01-03 12:59:00 Test Item Value Reference Range Interpretation Comments CARCINOEMBRYONIC ANTIGEN (BEAKER) 2.0 ng/mL 0.0-5.0 (test code = 685) [id number] 12:59:00 Test Item Value Reference Range Interpretation Comments FERRITIN (BEAKER) (test code = 1841 ng/mL 5-275 H 361) Effective 05/08/2014: Reference Range ChangeNew: Male 5-275 Previous: Male 22-322 Female 5-275 Female [id number] 12:58:00 Test Item Value Reference Range Interpretation Comments T4 TOTAL (BEAKER) (test code = 895) 4.5 ug/dL 4.9-11.7 L [id number] 12:58:00 Test Item Value Reference Range Interpretation Comments THYROID STIMULATING HORMONE 1.79 uIU/mL 0.35-4.94 (BEAKER) (test code = 772) [id number] 12:58:00 Test Item Value Reference Range Interpretation Comments T3 TOTAL (BEAKER) (test code = 656) 34 ng/dL 48-159 L Effective 05/08/2014: Reference Range ChangeNew: 48-159 Previous: 60-181 CALCIUM, [id number] 12:47:00 Test Item Value Reference Range Interpretation Comments CALCIUM IONIZED (BEAKER) (test 1.05 mmol/L 1.12-1.27 L code = 698) PH, BLOOD (BEAKER) (test code = 7.43 1810) [id number] 12:42:00 Test Item Value Reference Range Interpretation [...] % 20-55 (test code = 2590) URIC [id number] 12:40:00 Test Item Value Reference Range Interpretation Comments URIC ACID (BEAKER) (test code = 16.0 mg/dL 2.6-7.2 H 773) Specimen slightly ictericLIPID [id number] 12:40:00 Test Item Value Reference Range Interpretation [...] 160-189 Very High >=190 Specimen slightly ictericBILIRUBIN, [id number] 12:40:00 Test Item Value Reference Range Interpretation Comments BILIRUBIN DIRECT (BEAKER) (test 2.4 mg/dL 0.1-0.5 H code = 706) GAMMA GLUTAMYL TRANSFERASE (GGT)2017-01-03 12:40:00 Test Item Value Reference Range Interpretation Comments GAMMA GLUTAMYL TRANSFERASE (BEAKER) 53 U/L 9-64 (test code = 364) Specimen slightly [id number] 12:39:00 Test Item Value Reference Range Interpretation Comments ETHANOL (BEAKER) (test code = 400) < mg/dL <=10 SCREEN, [id number] 12:36:00 Test Item Value Reference Range Interpretation Comments TEST URINE (BEAKER) (test Negative code = 583) POCT-GLUCOSE [id number] 12:34:00 Test Item Value Reference Range Interpretation Comments POC-GLUCOSE METER 189 mg/dL 70-110 H TESTED AT [facility] 6720 (BEAKER) (test code = JULI[place]ENZEL [place] 1538) [address] HIV-1 ANTIGEN WITH HIV-1/2 [id number] 11:58:00 Test Item Value Reference Range Interpretation Comments HIV-1 ANTIGEN WITH HIV 1\\T\\2 Nonreactive Nonreactive ANTIBODY (2) (MADIE) (test code = 2586) TROPONIN [id number] 09:44:00 Test Item Value Reference Range Interpretation [...] Previous: 0.0-4.9CK-MB Reference Range:<6.7 Normal6.7-10.0 Borderline>10.0 AbnormalACETAMINOPHEN [id number] 08:31:00 Test Item Value Reference Range Interpretation Comments ACETAMINOPHEN LEVEL (BEAKER) (test < ug/mL 10.0-30.0 L code = 344) TROPONIN [id number] 05:53:00 Test Item Value Reference Range Interpretation [...] acute neurological disease, and persistent tachyarrhythmia.BASIC METABOLIC [id number] 05:53:00 Test Item Value Reference Range Interpretation [...] TO CALCULA TE ESTIMATED GFR. Specimen slightly [id number] 05:52:00 Test Item Value Reference Range Interpretation Comments PHOSPHORUS (BEAKER) (test code = 5.7 mg/dL 2.3-4.7 H 604) HEPATIC FUNCTION [id number] 05:52:00 Test Item Value Reference Range Interpretation [...] Specimen slightly ictericCREATINE KINASE (CK), TOTAL AND [id number] 05:52:00 Test Item Value Reference Range Interpretation Comments CREATINE KINASE TOTAL (BEAKER) 341 U/L 29-200 H (test code = 380) CREATINE KINASE-MB (BEAKER) (test 5.4 ng/mL 0.0-6.6 code = 750) CREATINE KINASE-MB INDEX (BEAKER) 1.6 % (test code = 395) Effective 05/08/2014: CK-MB Reference Range ChangeNew: 0.0-6.6 Previous: 0.0-4.9CK-MB Reference Range:<6.7 Normal6.7-10.0 Borderline>10.0 AbnormalCBC W/PLT COUNT & AUTO [id number] 05:48:00 Test Item Value Reference Range Interpretation [...] K/ L 0.00-0.20 (test code = 417) 0.71QCTULUKXFO2503-02-20 05:09:00 Test Item Value Reference Range Interpretation Comments FIBRINOGEN LEVEL (BEAKER) (test 427 mg/dl 225-434 code = 658) [id number] 05:09:00 Test Item Value Reference Range Interpretation Comments PARTIAL THROMBOPLASTIN TIME 36.2 seconds 22.5-36.0 H (BEAKER) (test code = 760) PROTHROMBIN [id number] 05:08:00 Test Item Value Reference Range Interpretation Comments PROTIME (BEAKER) (test code = 22.8 seconds 11.7-14.7 H 759) INR (BEAKER) (test code = 370) 2.0 <=5.9 RECOMMENDED COUMADIN/WARFARIN INR THERAPY RANGESSTANDARD DOSE: 2.0 - 3.0 Includes: PROPHYLAXIS forvenous thrombosis, systemic embolization; TREATMENT for venous thrombosis and/or pulmonary embolus.HIGH RISK: Target INR is 2.5-3.5 for patients with mechanical heart valves.HEPATITIS PANEL, [id number] 03:40:00 Test Item Value Reference Range Interpretation Comments HEPATITIS A IGM ANTIBODY (BEAKER) Nonreactive Nonreactive (test code = 498) HEPATITIS B CORE IGM ANTIBODY Nonreactive Nonreactive (BEAKER) (test code = 645) HEPATITIS C ANTIBODY (BEAKER) Nonreactive Nonreactive (test code = 367) HEPATITIS B SURFACE ANTIGEN (2) Nonreactive Nonreactive (BEAKER) (test code = 2585) CREATININE, RANDOM [id number] 03:18:00 Test Item Value Reference Range Interpretation Comments CREATININE URINE (BEAKER) (test 118.7 mg/dL code = 375) Reference Range: No NormalsSODIUM, RANDOM [id number] 03:18:00 Test Item Value Reference Range Interpretation Comments SODIUM URINE (BEAKER) (test code = 60 meq/L 243) Reference Range: No NormalsUREA NITROGEN, RANDOM [id number] 03:18:00 Test Item Value Reference Range Interpretation Comments UREA NITROGEN URINE (BEAKER) (test 303 mg/dL code = 538) Reference Range: No [id number] 03:07:00 Test Item Value Reference Range Interpretation Comments AMMONIA (BEAKER) (test code = 348) 48 mol/L 18-72 D-[id number] 02:57:00 Test Item Value Reference Range Interpretation [...] within 95-100% range. URINALYSIS W/ REFLEX URINE [id number] 02:53:00 Test Item Value Reference Range Interpretation [...] = 514) SOURCE(BEAKER) (test code = 2795) [id number] 02:49:00 Test Item Value Reference Range Interpretation Comments PARTIAL THROMBOPLASTIN TIME 39.4 seconds 22.5-36.0 H (BEAKER) (test code = 760) PROTHROMBIN TIME/[id number] 02:48:00 Test Item Value Reference Range Interpretation Comments PROTIME (BEAKER) (test code = 22.0 seconds 11.7-14.7 H 759) INR (BEAKER) (test code = 370) 1.9 <=5.9 RECOMMENDED COUMADIN/WARFARIN INR THERAPY RANGESSTANDARD DOSE: 2.0 - 3.0 Includes: PROPHYLAXIS forvenous thrombosis, systemic embolization; TREATMENT for venous thrombosis and/or pulmonary embolus.HIGH RISK: Target INR is 2.5-3.5 for patients with mechanical heart valves.[id number] 02:48:00 Test Item Value Reference Range Interpretation Comments FIBRINOGEN LEVEL (BEAKER) (test 421 mg/dl 225-434 code = 658) BLOOD GAS, [id number] 02:43:00 Test Item Value Reference Range Interpretation [...] 21.0 % CBC W/PLT COUNT & AUTO [id number] 02:43:00 Test Item Value Reference Range Interpretation [...] code = 417) 0.00LACTIC ACID, VENOUS, WHOLE [id number] 02:35:00 Test Item Value Reference Range Interpretation Comments LACTATE BLOOD VENOUS (2) (BEAKER) 0.8 mmol/L 0.5-2.2 (test code = 2872) Effective 10/23/2015: Units/Reference Range ChangeNew: 0.5-2.2 mmol/L Previous: 5-20 mg/dLSpecimen slightly ligefjkGCHOTRMHFFPE3433-95-04 11:32:0014.6[facility] EuxawytUFXAFSQMGGYC8567-01-88 11:32:0033[facility] YquujcyOZWRZTLDLAEA7686-19-05 11:32:008.3[facility] BktrcgjLNXFYXRSBADQ2267-22-17 11:32:0081[facility] Vin VEOABKBKPZGT7340-54-26 11:32:001.95[facility] AmqrxunPJVUCPTHAJYX8315-84-67 11:32:0055[facility] NhgaohhNKXWITYLGJPJ9266-53-30 11:32:0019[facility] NURYSWEFRWNY6109-14-70 11:32:14186Ufqdqwtd QxqqeiwZTWAGJJSZHVH2556-76-47 11:32:94248Ywcucstw NxblszfWPRLPRCXRNIV0316-92-02 11:32:004.6[facility] YIJYKMXFBL5725-58-91 11:32:0030.4[facility] QeicwkcJKFFNDITTD3946-52-04 11:32:00 4.5[facility] CzndyjtQPWPTJNOFV0220-92-61 11:32:0013.7[facility]annHEMATOLOGY 2016-07-30 11:32:002.6[facility] NexdvksYCSCXOFWAH6964-49-88 11:32:000.7[facility] UjjfyahGPWTTUDUOC1629-10-56 11:32:000.7[facility] RgkudmnQKTKIRDPHY9361-48-09 11:32:001.6[facility] IfdcsvrBIUGRKLGNM4073-62-76 11:32:000.2[facility] ZZYLRNDHKU2287-89-98 11:32:0050.7[facility] AgphywhJXZSZEEFZI8310-75-47 11:32:00 28.1[facility] XupihxxSKXYILMATO8661-98-02 11:32:003.39[facility] HermannHEMATOLOGY 2016-07-30 11:32:008.9[facility] PuppfivRLZSUCMAFI2279-14-13 11:32:005.1[facility] KcpfbeaYCIRCFNTSW8267-51-21 11:32:0011.3[facility] AdkwxofPMHTNTXWFW5623-22-15 11:32:56741Mbaeoshz TmvhjdeCAHZYKEUJN4379-71-66 11:32:0031.8[facility] Vin BMAQMUZBPH9525-89-88 11:32:0018.0[facility] RelqgrhYHUETBROCG4444-26-49 11:32:00 83.0[facility] HgquxvuUYYPJKBVYT0817-82-55 11:32:00 Test Item Value Reference Range Interpretation Comments MCH (test code = MCH) 26.4 pg 27.0-31.0 [facility] KnafsemBKASOROMFW0632-78-47 11:32:79112Rpgaapnq HermannIMMUNOLOGY 2016-07-30 11:32:00Negative *NA*(07/30/16 5:32 AM)[facility] HermannIMMUNOLOGY 2016-07-29 11:05:00Negative *NA*(07/29/16 5:05 AM)[facility] HermannIMMUNOLOGY 2016-07-29 11:05:0092[facility] HermannCHEM WCVOP9584-79-84 15:50:0025[facility] HermannCHEM RVHDN4198-46-62 15:50:0055[facility] HermannCHEM NEWCV5180-82-68 15:50:0023[facility] HermannCHEM PZTFB9367-77-26 15:50:06137Fulbgpyw HermannCHEM XASKT9700-44-97 15:50:22071Abyldrai HermannCHEM MYQMU2849-86-78 15:50:004.0 [facility]annCHEM KCSKR9243-58-92 15:50:42927Naxjbygo HermannCHEM PANEL 2016-07-28 15:50:0013.0[facility] HermannCHEM AMXQE7463-53-97 15:50:007.7[facility] HermannCHEM GTEHJ6041-48-75 15:50:002.49[facility] UslmxvpTTRFQGIHHF6009-41-64 15:50:00 Test Item Value Reference Range Interpretation Comments PT (test code = PT) 14.8 s 12.0-14.7 [facility] LdokmobFRLIFOHHKV4673-55-46 15:50:00 Test Item Value Reference Range Interpretation Comments PTT (test code = PTT) 40.8 s 22.9-35.8 [facility] ZxmyhkgWHJFXEJQNH0247-46-47 15:50:001.14[facility] HermannIMMUNOLOGY 2016-07-28 15:50:0094[facility] ChxdrbcGKQAGVBHUB6048-23-22 10:35:001.7[facility] RljkdygUYQGWOIQTH9570-60-43 10:35:002.7[facility] IyirsdxNFAZHPIIWP0800-13-76 10:35:000.1[facility] IrvyolkYVQUIFINVM3435-54-99 10:35:000.7[facility] Vin UHUBENMGHM4178-07-51 10:35:0051.3[facility] LvmbmyxESWJXBAZSE7813-03-56 10:35:00 31.6[facility] GvwxaydXCUYWTFERI8844-75-28 10:35:0014.1[facility]annHEMATOLOGY 2016-07-28 10:35:002.6[facility] PouqfddEYLBBPLEOM9197-61-71 10:35:000.4[facility] BqdmwocRZIIYOEEKJ6513-21-23 10:35:0029.3[facility] MybmnxjPBUDRYJDEL8446-65-94 10:35:009.2[facility] VqetluvIAZKNQWUEN3650-86-53 10:35:003.54[facility] Vin BQBIAKKOVL0317-82-74 10:35:005.3[facility] MmeamrjVBUWZHMCYP4576-43-53 10:35:0087 [facility] SvtzzvzEQASKHFXXH8839-55-49 10:35:0031.4[facility]annHEMATOLOGY 2016-07-28 10:35:0017.9[facility] NdfcuwzSGXHRJFXMX3972-72-05 10:35:0010.9[facility] YkoctvrNIESGMWNZU5618-61-20 10:35:00 Test Item Value Reference Range Interpretation Comments MCH (test code = MCH) 26.0 pg 27.0-31.0 [facility] ZgwbmflQHRSXXLWYZ9781-84-81 10:35:0082.8[facility] HermannIMMUNOLOGY 2016-07-28 10:35:00Negative *NA*(07/28/16 4:35 AM)[facility]annCARDIAC ENZYMES 2016-07-27 10:22:55215Ghxkajxc HermannCHEM JYTYI3630-40-47 10:22:007.8[facility] HermannCHEM IIMME1518-61-01 10:22:0021[facility]annCHEM PAGXZ9209-16-19 10:22:13847Bnnlxlxf HermannCHEM VHAHA1623-65-70 10:22:003.8[facility] HermannCHEM XPEMH9716-10-21 10:22:48363Xrulpooo HermannCHEM KRMSN2431-18-48 10:22:000.4 [facility]annCHEM KMOMP9951-58-97 10:22:0074[facility]annCHEM PANEL 2016-07-27 10:22:0019[facility]annCHEM YDZYN5248-64-03 10:22:005.2[facility]annCHEM LCEUU3753-51-38 10:22:74960Xfmlibsq HermannCHEM EZXZM6027-11-36 10:22:90295Qoypsuli HermannCHEM TDHLX7324-55-52 10:22:001.8[facility] HermannCHEM NZYHP3629-43-93 10:22:0054[facility]annCHEM HVGKU8890-90-27 10:22:66759 [facility]annCHEM ZPNHE4491-59-68 10:22:003.11[facility]annCHEM PANEL 2016-07-27 10:22:0017[facility]annCHEM MBQDH1584-22-52 10:22:0016.8[facility]annCHEM YYDVO5352-87-84 10:22:003.4[facility]annCHEM KEVIO4351-84-58 10:22:000.5[facility]annCHEM QZIOQ2997-39-01 10:22:002.0[facility]annCHEM YZCWO8058-04-59 10:22:003.7[facility] EnmxvdnJJEZTWSGTA5070-22-43 10:22:0017.7 [facility] GlneicuRQCQZBTOVD5692-03-67 10:22:0032.9[facility]annHEMATOLOGY 2016-07-27 10:22:0025.4[facility] PkqtfosAFUBIKUBLD6196-09-15 10:22:00 Test Item Value Reference Range Interpretation Comments MCH (test code = MCH) 26.4 pg 27.0-31.0 [facility] GleavjaIGRLURAGDN7826-65-75 10:22:0080.3[facility]annHEMATOLOGY 2016-07-27 10:22:0011.4[facility] YmupguyVQSETSCHBQ7793-66-52 10:22:0074[facility] RysvgwxLNOFYCWJJE9363-74-48 10:22:003.16[facility] MxsqimoPNDYULDPYE2717-17-13 10:22:005.3[facility] CpeiyunVPERTDEIXF7412-90-70 10:22:008.4[facility] [place] BPSLTZZNJY0669-28-41 10:22:0014.5[facility] SgskkleWLQJWSSBUA6400-60-57 10:22:00 29.8[facility] BrttjwlEDDJKKLXZZ4403-31-65 10:22:000.1[facility]annHEMATOLOGY 2016-07-27 10:22:000.8[facility] HfjbzfjIGPRLGIXWU9534-70-94 10:22:002.9[facility] LyqtpidDKMZHUYFGU6501-02-37 10:22:001.6[facility] RrdfagfOQTXZRLKCN4311-59-87 10:22:000.4[facility] MgetwxkZTERATQQDS7714-09-65 10:22:001.2[facility] XRMDQSEXOT9266-80-53 10:22:0054.1[facility]annSPECIAL OMFVOXKLT7718-84-94 10:22:008.9[facility] HermannCARDIAC PFGGIOS9247-20-01 17:40:02810Pvbwlwpi [place] HGTORCIEEY2383-86-57 17:40:00Positive *ABN*(07/26/16 11:40 AM)[facility] FXIQUHAGHN2846-51-56 17:40:00<0.2[facility] WbdxknhLJFXUTZMXG9913-21-12 17:40:00<0.2[facility] KtjimpbDTPHGTXRMA0419-86-72 17:40:00<0.2[facility] RwxmufiQUGBTMWNLS5765-01-36 17:40:00<0.2[facility] XhugbqcJEZMRGHUSC2490-11-32 17:40:00Negative (07/26/16 11:40 AM)[facility] YxvkzjlWRHLAHKVWG7675-51-82 17:40:00 1:40 *ABN*(07/26/16 11:40 AM)[facility]annURINE MJUR3132-20-94 17:40:0021 [facility] DhhsufwCCXLJSSVKD2588-59-24 14:00:001.11[facility]annHEMATOLOGY 2016-07-26 14:00:00 Test Item Value Reference Range Interpretation Comments PT (test code = PT) 14.5 s 12.0-14.7 [facility] AjohpmcDZTXRYKVNK4796-45-06 14:00:00Negative *NA*(07/26/16 8:00 AM) [facility] QyvsfhyKKGCSVJETV9851-95-80 14:00:00Negative *NA*(07/26/16 8:00 AM) [facility] QsmslemQZPBXOHQIQ5321-40-49 14:00:00Negative *NA*(07/26/16 8:00 AM) [facility] BfmsftaHOCEYHEJCT1275-82-76 14:00:00Negative *NA*(07/26/16 8:00 AM) [facility]annCHEM ZFSEL5391-78-02 10:42:0017[facility]annCHEM PANEL 2016-07-26 10:42:846445Ictxirvx HermannCHEM VRHGD9488-50-64 10:42:000.5[facility]annCHEM IZKGA1228-05-48 10:42:000.3[facility] HermannCHEM AEUUE7144-92-33 10:42:0079[facility]annCHEM AVIVB7447-48-97 10:42:39806Mchjjhul HermannCHEM FDBPC8430-57-72 10:42:005.5[facility]annCHEM HJCNA7000-20-39 10:42:003.7 [facility]annCHEM EXYCJ5878-98-83 10:42:001.8[facility]annCHEM PANEL 2016-07-26 10:42:002.1[facility] MgrysoqPBBLGRTGTB2568-72-27 10:42:00Present *ABN*(07/26/16 4:42 AM)[facility] TitibqiSSDJRBYNOE7346-83-94 10:42:001+ *ABN*(07/26/16 4:42 AM)[facility] VncunymTTNUGNPWXY9663-33-94 10:42:000.1[facility] KfhfiznUBBWOKXSTH9917-87-87 10:42:00Moderate *ABN*(07/26/16 4:42 AM)[facility] IfjhrnoBZTVYEVKAW9614-85-38 10:42:0042[facility]annURINE AND GHQJE9782-32-85 16:34:001[facility]UR[facility] AND EJFJJ1147-86-64 16:34:004[facility] [place] URINE AND XAJUC7189-79-61 16:34:00Negative (07/25/16 10:34 AM)[facility]INE AND JNLYB5183-99-30 16:34:00Negative (07/25/16 10:34 AM)[facility] URINE AND MMEVK2358-73-19 16:34:002[facility]UR[facility] AND KOSBQ5082-08-97 16:34:006[facility]UR[facility] AND JOPIY8176-11-04 16:34:002.0[facility] URINE AND AXKWZ0567-75-40 16:34:00Negative (07/25/16 10:34 AM)[facility]INE AND GCIRP4023-95-45 16:34:00Negative *NA*(07/25/16 10:34 AM)[facility]INE AND CRBST0739-84-95 16:34:001.012[facility]UR[facility] AND CNLMD4907-83-13 16:34:005.5[facility]UR[facility] AND PNBZN4832-94-53 16:34:00Slight *ABN*(07/25/16 10:34 AM)[facility] PSZJS4997-31-15 16:34:00Dark Yellow *NA*(07/25/16 10:34 AM)[facility] NCXGS1606-32-99 16:34:009 [facility] NBSF2469-86-71 16:34:0030[facility] CHEM 2016-07-25 16:34:003.1[facility]UR[facility] LZDH4854-32-11 16:34:53668.9[facility]annUR[facility] KADO2112-90-90 16:34:00598.00[facility] HermannCHEM DMKUW3097-39-83 08:55:002.0[facility]annCHEM AODJJ3204-16-23 08:55:005.2[facility] CARDIAC DLPKXRN5912-38-94 17:29:000.28[facility]annCARDIAC BEJBOUT7863-98-79 17:29:903068Pbaavihy HermannCARDIAC UTOZBXS6854-23-44 17:29:000.144[facility]annCARDIAC XNFNTRY4025-41-82 17:29:000.2[facility]annCARDIAC ENZYMES 2016-07-24 17:29:006.3[facility]annCARDIAC OSCPHCA1540-02-36 11:20:000.38 [facility]annCARDIAC NXJLMOA8180-82-41 11:20:000.173[facility]annCARDIAC QYGWXEB5521-44-84 11:20:000.2[facility]annCARDIAC WFZOUCF6814-59-59 11:20:00 5.6[facility] HermannCHEM YUKNX5455-10-08 11:20:005.5[facility]annCARDIAC JRMWDKE9055-13-61 06:18:78268Jcmdexiw HermannCARDIAC XDXBCBD7801-18-83 04:59:27 0.57[facility]annCARDIAC BZXLWIY4048-54-60 10:22:40654Ajgnaext HermannCHEM ELVFZ2616-96-59 10:22:002.1[facility] HermannCHEM GUIVE1241-86-41 10:22:90705 [facility]annCHEM SNYNS8405-76-32 10:22:0041[facility]annCHEM PANEL 2016-06-15 10:22:002.00[facility] HermannCHEM LXDZG4605-63-93 10:22:009.0[facility] HermannCHEM HZCZI5896-60-76 10:22:20697Ospbboji HermannCHEM JYLAO7012-65-88 10:22:0033[facility]annCHEM NKPOD3085-11-56 10:22:76056Pgtzxjxg HermannCHEM QHQSA6127-17-44 10:22:004.0[facility] HermannCHEM QUCFE2049-47-15 10:22:0032 [facility]annCHEM DZADW4244-29-61 10:22:0013.0[facility]annCHEM PANEL 2016-06-15 10:22:004.6[facility] GsltplsLPEUGYHNPG5303-19-90 10:22:003.68[facility] KympvsiEZKXFWAWRX1054-22-68 10:22:009.9[facility] MyrsmpcCSGWDLKLMN9178-98-08 10:22:00 Test Item Value Reference Range Interpretation Comments MCH (test code = MCH) 26.8 pg 27.0-31.0 [facility] KpzuceuZVAPNELNIX5258-59-07 10:22:0034.2[facility] HermannHEMATOLOGY 2016-06-15 10:22:0078.3[facility] KristieNHEEEPECXF3433-84-36 10:22:0028.8[facility] NrrepzqMBVDCZZGZM8170-74-24 10:22:41112Rolhbxrq RvomzydUDSMMNOZBO8379-23-52 10:22:009.5[facility] WwfkwkmOCWRZQHCRZ7958-87-30 10:22:0015.3[facility] RICGOGSZHC0952-58-10 10:22:005.6[facility] UmllsapWPPAIBFHMN0718-56-99 10:22:000.5 [facility] CipnieuZHYZDVIDUQ9557-71-42 10:22:001+ *ABN*(06/15/16 4:22 AM)[facility] XagapdiPUMYIVDQVE9550-24-17 10:22:000.1[facility] UbdpczcXKNNQDVGZC2043-37-05 10:22:0033.5[facility] KwojkkcUIPCDGBPVZ9061-70-28 10:22:0047.6[facility] JYYJLEEPXQ0551-37-30 10:22:008.4[facility] KwcfrsaYBQIRNGIXE2650-30-66 10:22:009.4 [facility] XujdxdgSIOOQOBVMU6238-42-73 10:22:002.6[facility] HermannHEMATOLOGY 2016-06-15 10:22:001.9[facility] DyqbphrJSPVOJEBYE5605-80-82 10:22:001.1[facility] QwegyaiMZZJVFFRUE5193-22-54 10:22:000.5[facility] HermannCHEM LULUJ3493-47-91 11:03:004.8[facility] HermannCHEM OJQRZ7065-69-56 11:03:002.0[facility] HermannCHEM OLPTX6187-22-88 11:03:0032[facility]annCHEM LJBFA4144-42-67 11:03:32983 [facility]annCHEM XULGW0610-56-67 11:03:004.4[facility] HermannCHEM PANEL 2016-06-14 11:03:0037[facility] HermannCHEM ZQRGR5141-03-65 11:03:86957Iyuvessk HermannCHEM CLFJB8758-00-86 11:03:002.00[facility] HermannCHEM TIJRJ8518-18-02 11:03:33881Bqcmegkf HermannCHEM AMOZY5201-64-17 11:03:008.7[facility] HermannCHEM BWCOW9690-94-20 11:03:0032[facility]annCHEM DZBWT2709-74-62 11:03:0013.4 [facility] TyhppbpVTRMXLDNHA4877-71-71 11:03:0010.3[facility]annHEMATOLOGY 2016-06-14 11:03:000.1[facility] WbzltvfDBALRASWQO8051-19-70 11:03:000.5[facility] UhelnymFBYEOTHCIR8790-98-09 11:03:000.5[facility] UswsjtqXNFPAGAGCV7945-63-48 11:03:002.1[facility] WjkzvgoUOKMZFWPXW7368-14-53 11:03:001.2[facility] [place] DFRDIGBONC0632-20-79 11:03:001.9[facility] EnxyrqlRHOGBJPNUL1456-26-34 11:03:00 42.5[facility] MzsjqoxWIARYQWBQJ4784-67-74 11:03:0037.0[facility]annHEMATOLOGY 2016-06-14 11:03:009.0[facility] XvxfnfdNVHVJAWGYL7386-80-92 11:03:009.8[facility] GgqbukmILEHWCRLTK6442-79-75 11:03:005.0[facility] PbwkvsmJYDTQVPSGO5464-18-22 11:03:003.57[facility] TxnmkczOPLAPFJPMD6291-76-48 11:03:009.4[facility] [place] XEWUUIDXAQ4023-54-66 11:03:0028.5[facility] UgyumpvQGTHEVJDJR7321-62-99 11:03:00 183[facility] PrvhisxIKMNLFZUIT3131-38-36 11:03:0079.9[facility]annHEMATOLOGY 2016-06-14 11:03:00 Test Item Value Reference Range Interpretation Comments MCH (test code = MCH) 26.3 pg 27.0-31.0 [facility] ItzplngGZJBGCJHOV7607-37-46 11:03:0033.0[facility]annHEMATOLOGY 2016-06-14 11:03:0015.9[facility]annURINE AVMA4099-34-49 10:26:006.9[facility]annURINE BYQJ2153-64-41 10:26:0019.30[facility]annURINE NIDF8512-77-51 10:26:18672.1[facility] OhiohjnCAVOENEHOO8798-24-79 09:20:009.7[facility] PYPPJFWGVG5324-08-86 09:20:27441Tjzgiljq JxthnplIOIDYWFWBP9022-49-30 09:20:00 15.9[facility] LiurbwuPBFGSHLCTC4997-27-39 09:20:0079.3[facility]annHEMATOLOGY 2016-06-13 09:20:0033.0[facility] TwxkqdeFLTGAXXONY3104-00-42 09:20:00 Test Item Value Reference Range Interpretation Comments MCH (test code = MCH) 26.2 pg 27.0-31.0 [facility] GhdnkaaSXCZIBCOIG7276-32-98 09:20:0029.4[facility]annHEMATOLOGY 2016-06-13 09:20:009.7[facility] NwbznjzIVSPRCAOLC1600-09-17 09:20:003.70[facility] DmkwvqxMOPGXIGDPS0536-32-87 09:20:005.7[facility] LcslhgzEMSVTQPGYV5518-01-18 09:20:000.1[facility] WbxxcacFAYMOLFWVQ8687-30-46 09:20:002.2[facility] SMTWQQCRAW6648-01-81 09:20:000.5[facility] CfukdgdMPVEHWECXC1406-87-85 09:20:000.5 [facility] EpqvsyuAOOYKWFIPB2673-85-34 09:20:001.1[facility]annHEMATOLOGY 2016-06-13 09:20:002.3[facility] QmebfuhULXOJGAEHO6950-58-35 09:20:009.5[facility] TthimmjZASBJTULOW4176-75-90 09:20:009.0[facility] AwfwuesNSLWBXYBUN2282-64-31 09:20:0038.9[facility] VzxiwzfYNVDHVGMJU5404-51-22 09:20:0041.5[facility] CHEM TQULX0652-32-01 06:34:001.7[facility] HermannCHEM ZNGYN5790-04-30 06:34:004.2 [facility] NdzetbpHDJGARAJCQFF1412-12-39 06:34:0014.3[facility] HermannELECTROLYTES 2016-06-13 06:34:0041[facility] QslmswqPOOJPDBWRLOG8026-52-79 06:34:50419Utuhkgca LjqocrcUPQOCPGVPSXB2628-13-95 06:34:008.5[facility] RhuwhylXQEJNVYWCYAA7085-83-67 06:34:0032[facility] LfkkkjiLLYXULTETKFS8799-81-43 06:34:65000Kjlewmfv [place] ORDEYCYWENPD1510-06-11 06:34:0037[facility] JyfrwuqDEGUGTHAPZMN1018-25-08 06:34:00 1.63[facility] TxhcdxeJFQMXISFHUKP0195-33-54 06:34:004.3[facility] XDGTBVPXMIAP1169-29-50 06:34:44271Lldtuaoz HermannCHEM TRRGY8666-06-42 16:21:00 48.0[facility] KxaocjwFOOEQUSEGZ2821-65-76 14:56:001:40 *ABN*(06/11/16 8:56 AM) [facility] EwluffnVHLAXCUVNP3281-19-92 14:56:00Negative *NA*(06/11/16 8:56 AM) [facility] QwxqutmQTQOLFASAY9334-53-90 14:56:00Negative *NA*(06/11/16 8:56 AM) [facility] CywxkasYJPJTZSHOO8594-09-42 14:56:00Negative *NA*(06/11/16 8:56 AM) [facility] ZexfnkhWWEWOZFFQN4684-33-47 14:56:00Negative *NA*(06/11/16 8:56 AM) [facility] VvrmuqxYROOORKEJQ7651-32-00 14:56:00Negative *NA*(06/11/16 8:56 AM) [facility] QxmcsurEXIHVLURUR1509-28-55 14:56:00Positive *ABN*(06/11/16 8:56 AM) [facility]annCHEM ITIQU6212-58-95 10:42:000.1[facility]annCHEM PANEL 2016-06-11 10:42:005.2[facility]annCHEM GUGTW1920-36-77 10:42:001.6[facility]annCHEM ZYFVR7847-85-23 10:42:0020[facility]annCHEM NFPQL3722-79-10 10:42:003.6[facility]annCHEM MHXSO5346-77-44 10:42:000.4[facility]annCHEM DQWLI2429-44-63 10:42:0074[facility] HermannCHEM UKEZZ5348-94-27 10:42:0014 [facility]annCHEM UXTOK9098-15-27 10:42:0013[facility]annHEMATOLOGY 2016-06-11 10:42:001.06[facility] AdwujdoAXEPYRQRIG3114-00-57 10:42:00 Test Item Value Reference Range Interpretation Comments PT (test code = PT) 14.0 s 12.0-14.7 [facility] NaxsstgWTNLYSYIIK0747-60-75 10:42:00 Test Item Value Reference Range Interpretation Comments PTT (test code = PTT) 36.4 s 22.9-35.8 [facility]annSPECIAL UNGRGRUFB7139-33-97 10:42:0010.5[facility] HermannCARDIAC PGDZWAU4765-63-99 02:08:001.8[facility]annCARDIAC IZRHWFQ5587-24-98 02:08:00 2.9[facility]annCARDIAC SRCHKWG4566-93-32 02:08:000.061[facility] [place] CARDIAC QOHZVZA3903-86-86 02:08:17439Kohjbzhi HermannCARDIAC ZAEPSYK3698-31-15 02:08:00<0.02[facility]annCHEM BVSWP6391-99-53 02:08:000.2[facility] CHEM OYRTV0758-03-16 02:08:000.1[facility]annCHEM XVSMT9792-07-75 02:08:000.1 [facility]annCHEM PHDGZ5222-67-13 02:08:005.7[facility]annCHEM PANEL 2016-06-11 02:08:000.5[facility] HermannCHEM OLDHD6027-68-68 02:08:001.8[facility] HermannCHEM HWBDU1976-67-45 02:08:003.9[facility]annCHEM FANFL2758-29-10 02:08:0099[facility]annCHEM WZFDJ5139-25-43 02:08:0021[facility]annCHEM RWIKO3923-28-78 02:08:0017[facility] HermannDRUG GHVIYC6957-02-82 02:08:00See Note *NA*(06/10/16 8:08 PM)[facility] HermannDRUG DODVTJ8858-49-09 02:08:00Negative *NA*(06/10/16 8:08 PM)[facility] HermannDRUG GPSNLE7552-96-13 02:08:00Negative *NA*(06/10/16 8:08 PM)[facility] HermannDRUG EUMWOI2338-92-59 02:08:00Negative *NA*(06/10/16 8:08 PM)[facility] HermannDRUG BKYHFA5491-17-07 02:08:00Negative *NA*(06/10/16 8:08 PM)[facility]annDRUG ZUHNYP4451-34-75 02:08:00Negative *NA*(06/10/16 8:08 PM)[facility] HermannDRUG PFIJOT2714-47-35 02:08:00Negative *NA*(06/10/16 8:08 PM)[facility]annDRUG NWJHND8017-63-82 02:08:00Negative *NA*(06/10/16 8:08 PM)[facility] HermannDRUG OWVLIO6764-65-83 02:08:00Negative *NA*(06/10/16 8:08 PM)[facility] HermannDRUG IKOORX7868-32-44 02:08:00Negative *NA*(06/10/16 8:08 PM)[facility] IbvjgcjBIIBBN1947-58-96 02:08:0075[facility] KczaggtGYCEIU9636-87-94 02:08:0027[facility] KdtdrlxUONSTE7697-20-79 02:08:30683 [facility] WvclzuaWFRLQR5873-05-32 02:08:81424Gmdafxdv OpnyeamXIIPAY3195-05-87 02:08:004.29[facility] DnweglbNZCSTP4804-11-88 02:08:0031[facility]annURINE AND QLRBL3128-20-12 02:08:006.0[facility]annURINE AND FEOJA4568-76-80 02:08:00 Negative (06/10/16 8:08 PM)[facility] AND DQMIT8591-82-66 02:08:00 Trace *ABN*(06/10/16 8:08 PM)[facility]annUR[facility] AND YPYSV4795-18-00 02:08:00 Negative *NA*(06/10/16 8:08 PM)[facility]annUR[facility] AND IMTFS0117-64-03 02:08:004[facility]annURINE AND JDKOK1093-92-39 02:08:005[facility]INE AND LADRK6740-46-55 02:08:00Small *ABN*(06/10/16 8:08 PM)[facility]INE AND QPNFR0370-90-33 02:08:001[facility]annUR[facility] AND CGNCX1852-84-70 02:08:001.009[facility]annUR[facility] AND EHUHA2048-01-48 02:08:00Yellow *NA*(06/10/16 8:08 PM)[facility]UR[facility] AND QMTYI1696-81-79 02:08:00Clear (06/10/16 8:08 PM)[facility]annURINE INVV3881-18-29 02:08:00Negative (06/10/16 8:08 PM)[facility]UR[facility] XDKF0312-29-86 02:08:16258.4[facility]annURINE AEMB8173-63-94 02:08:005.4[facility]annURINE EKMK6160-00-13 02:08:0069.80[facility] HermannCARDIAC DLXNTIG4494-26-98 16:53:541552Tvdqjovx HermannCARDIAC HULPNXN6530-09-85 16:53:00<0.02[facility] HermannCHEM PANEL 2014-06-26 13:02:000.9[facility] AsiliyvFZZQOTDYHP9145-41-54 12:29:4410[facility] PanmuyvWJJGLHPLSBEEX3358-25-44 11:21:271[facility]annCHEM RTGBC2119-50-23 11:21:000.9[facility] HermannCHEM EUSZD6322-05-60 11:21:003.4[facility] HermannCHEM ELTKB1048-47-39 11:21:0014[facility] HermannCHEM PKHSR1210-12-08 11:21:0019.4 [facility] HermannCHEM VVTMD2068-18-08 11:21:0081[facility]annHEMATOLOGY 2014-06-26 11:21:000.0[facility] BjhymceGQCPWCAFJS3736-34-77 11:21:001+ *ABN*(06/26/14 5:21 AM)[facility] VccnjdeIMLOORBVYM9996-61-91 11:21:000.6[facility] BhcbooqBCLWPVZMHT9994-28-45 11:21:000.1[facility] UqvqzxtKTEFUPZYOK6768-28-29 11:21:002.5[facility] GuamybdIUTIIKOOCW7939-39-87 11:21:0063.3[facility] UKGAGXQLPJ9139-38-19 11:21:005.6[facility] LhmsfxiZULHJIKFJR0974-43-72 11:21:000.0 [facility] VoktfqoTTCQESWCNW9811-47-17 11:21:000.9[facility] HermannHEMATOLOGY 2014-06-26 11:21:007.0[facility] MyrxtdeZFGAKGLCCV6103-65-53 11:21:0028.8[facility] VzklzhbOEOEOGHSZL6720-64-96 11:21:008.8[facility] LhtasywGXBTPGNMFZ5723-17-89 11:21:005.19[facility] ZqckmntQPLQIULOAL5809-20-77 11:21:0014.4[facility] LELLWQHDTN5692-74-99 11:21:0043.1[facility] PpaijdlWTJSXJLNVQ3486-19-06 11:21:00 83.1[facility] MdhqjqgIWTKBWOFDH0116-38-71 11:21:00 Test Item Value Reference Range Interpretation Comments MCH (test code = MCH) 27.8 pg 27.0-31.0 [facility] UkhpsajTJGTZGNCPW2305-05-26 11:21:0013.1[facility]annHEMATOLOGY 2014-06-26 11:21:0033.5[facility] JfnelnmVYJLFDDZLN0299-64-51 11:21:04301Jiwcraxd SjkcmeuERXVDEAWNO9691-85-97 11:21:0010.4[facility] HermannCHEM MHWDU9242-63-90 11:21:003.2[facility]annCHEM DYJLQ8311-76-77 11:21:006.6[facility]annCHEM ZAHWZ9168-45-09 11:21:000.6[facility]annCHEM XDAZP6005-67-22 11:21:0059 [facility]annCHEM ZNFME0795-61-32 11:21:0011[facility]annCHEM PANEL 2014-06-26 11:21:0017[facility]annCHEM JPYRN6010-09-48 11:21:0099[facility]annCHEM SOFSC6484-53-57 11:21:71782Hbytjvvt HermannCHEM NMBXL3773-39-11 11:21:003.4[facility]annCHEM BTTHG0500-39-50 11:21:0011[facility]annCHEM KPQSD8448-24-20 11:21:000.8[facility]annCHEM GBFJC8385-78-62 11:21:21163 [facility]annCHEM ZPJIH5635-55-93 11:21:0094[facility]annCHEM PANEL 2014-06-26 11:21:009.1[facility]annCHEM WDLNY8278-53-13 11:21:0024[facility] YsvhecuDVDRICRGLN2719-88-53 04:48:55Performed (04/14/2013 23:48:55)[facility] UekfkjiAFHJPCKTPX2220-26-16 04:48:55Negative *NA*(04/14/2013 23:48:55)[facility] LmsrltxXUXROAWLNS3632-23-20 04:48:55Trace *ABN*(04/14/2013 23:48:55)[facility] GsqqldzVIIPETSNGC7548-13-53 04:48:55Negative (04/14/2013 23:48:55)[facility] AhegmvyXKFJAHDZSR8558-09-14 04:48:550.2[facility] YisxdgoOADMKSRBEX0272-84-46 04:48:55Negative (04/14/2013 23:48:55)[facility] TzvqiszGNMGTLKHYK5861-07-82 04:48:55Negative (04/14/2013 23:48:55)[facility] CuxumgnFLJQKHBSKZ7285-34-01 04:48:55Clear (04/14/2013 23:48:55)[facility] QlehxfaKGZYEYZAQU4446-53-75 04:48:55 Yellow *NA*(04/14/2013 23:48:55)[facility] YsguyfeOYLODCOXFH4360-82-62 04:48:55 Test Item Value Reference Range Interpretation Comments UA pH (test code = UA pH) 7.0 1 5.0-8.0 N [facility] IwbptisHTALECLJQD6514-79-61 04:48:55 Test Item Value Reference Range Interpretation Comments UA Spec Grav (test code = UA Spec 1.025 1 N Grav) [facility] XletyvhLQDYKKTQQY6996-03-62 04:48:55Trace *ABN*(04/14/2013 23:48:55) [facility] FhhvzgmAROMQZWUR7273-15-89 04:28:00Negative *NA*(04/14/2013 23:28:00) [facility] WukonbwMYZCGSVYX9809-38-64 04:28:06908Hdndzehb HermannCHEMISTRY 2013-04-15 04:28:004.1[facility] ZmbuujzAPYNTDSIM1594-72-34 04:28:0010.5[facility] AhgkkoqAQCJFLVAH8841-45-80 04:28:006[facility] ZxlvavsQMQLNXEPB8736-96-86 04:28:00 0.7[facility] ZteocumLZQCAEACQ3166-90-62 04:28:49700Pgtfcipb HermannCHEMISTRY 2013-04-15 04:28:002.9[facility] AcrclluJJTZDJYIW8264-07-21 04:28:0020[facility] BgxwdqiDKNEDUVYF8795-26-78 04:28:000.5[facility] GdlsgftNVFLAKOCG5902-02-97 04:28:0089[facility] YqmzudwDNLMIXPXN3509-41-36 04:28:0011[facility] Vin XSFPASUHP7371-60-93 04:28:000.5[facility] DtgvkchIQQKKMDVD9706-94-89 04:28:003 [facility] QkxhewuOZBNMUISC2752-99-76 04:28:19315Gwomqqeq HermannCHEMISTRY 2013-04-15 04:28:007.0[facility] TbalwmbBNZJQGMOV9841-93-19 04:28:008.7[facility] RtbeuwnOHCZFCLSD4088-96-21 04:28:0029[facility] IxxrhehOVYNOJEKK0105-18-98 04:28:15526Nulkwxqg RjjwodsKNZCGLAWO7763-45-85 04:28:003.5[facility] PQRBQVIOD1690-01-35 04:28:18028Iwygnazj EibocpoGMPOUCWYGG6282-79-69 04:28:00 Test Item Value Reference Range Interpretation Comments PROTIME (test code = PROTIME) 12.1 s 12.0-14.7 N [facility] MqvozbmGMHNGKYYQK4623-78-19 04:28:00 Test Item Value Reference Range Interpretation Comments aPTT (test code = aPTT) 39.0 s 22.9-35.8 H [facility] RfumvxvCHTEPSQXHE7825-97-59 04:28:000.90[facility]annHEMATOLOGY 2013-04-15 04:28:00 Test Item Value Reference Range Interpretation Comments MCH (test code = MCH) 29.4 pg 27.0-31.0 N [facility] IbqgomkCYGMLAQWCI0706-19-91 04:28:0086.1[facility] HermannHEMATOLOGY 2013-04-15 04:28:0029.4[facility] YqvhcffMXRFDKSNPC7978-75-55 04:28:0014.0[facility] RqtmvjpUBRTKYAKDC7567-85-30 04:28:006.2[facility] EsicmjyIHHMVRNTCQ6663-74-67 04:28:64526Lapkszfc QsskrcyARNGYKOERT2162-22-49 04:28:0034.1[facility] LOKSXPGAXC7053-72-67 04:28:003.41[facility] IjxfftaKPOVJPQSCN0012-57-12 04:28:00 10.0[facility] VuehapdMTZBBIVFBR0490-22-52 04:28:0010.1[facility] HermannHEMATOLOGY 2013-04-15 04:28:004.4[facility] NachycxHKWUIKFFER3887-10-79 04:28:000.7[facility] VrgnkikHGPCQFSDFQ0393-06-19 04:28:0070.7[facility] SszfabjISDLJCSVNS3741-59-11 04:28:000.3[facility] EmmhxdxQUXGLCEYYL8705-03-15 04:28:001.2[facility] Vin KJQYYKQDEV4368-11-80 04:28:004.5[facility] MyeivrdDYALTKRJGX5891-54-47 04:28:004.1 [facility] MwyrkzhHUPLLZBFFF1189-04-32 04:28:0020.0[facility] HermannHEMATOLOGY 2013-04-15 04:28:000.0[facility] DyktkahUKIAODDWWU1322-19-89 04:28:000.3[facility] HermannBEDSIDE GLUCOSE VMYMLRZ2635-86-92 01:12:69620Vrggirqz HermannURINALYSIS 2012-03-14 23:40:00Trace *ABN*(03/14/2012 18:40:00)[facility] HermannURINALYSIS 2012-03-14 23:40:00 Test Item Value Reference Range Interpretation Comments UA pH (test code = UA pH) 6.0 1 5.0-8.0 N [facility] BgnmdhiDCYPYMUBMJ8186-90-84 23:40:00>=80 mg/dL *NA*(03/14/2012 18:40:00)[facility] RvqgolxJRBBENTMHW3593-63-33 23:40:00>=1000 mg/dL *ABN*(03/14/2012 18:40:00)[facility] CaphfenFQNHNBUCQI8573-93-21 23:40:00Negative (03/14/2012 18:40:00)[facility] RvyvhfeZVZNHYSSAL0199-99-97 23:40:00Negative (03/14/2012 18:40:00)[facility] PjjnrplACSVZDWKKJ3815-65-43 23:40:000.2[facility] KaxxkrsBMUQFTVCOJ4796-31-33 23:40:00Negative (03/14/2012 18:40:00)[facility] NoatdnnNBCCXXFAIN6512-55-06 23:40:00Negative *NA*(03/14/2012 18:40:00)[facility] RupdtuqHOQEXHSERO7671-85-74 23:40:00Clear (03/14/2012 18:40:00)[facility] AUTVOBTLZT0152-57-00 23:40:00Yellow *NA*(03/14/2012 18:40:00)[facility] YMPLZVKPCW1612-78-85 23:40:00>=1.030 *ABN*(03/14/2012 18:40:00)[facility] MrqhbynFFAMESJRJK4253-31-39 23:40:00Occasional /LPF (03/14/2012 18:40:00) [facility] RemzknuOQWNIFANNJ1284-05-37 23:40:003-5 /HPF (03/14/2012 18:40:00) [facility] AjffyyaPZCBVQXWYI5931-52-55 23:40:00Occasional /HPF (03/14/2012 18:40:00)[facility] LkxdactLHXLYDDGD1686-01-37 22:50:00Negative *NA*(03/14/2012 17:50:00)[facility] NzqnpshBJMCESNLX6026-15-01 22:50:0045[facility] HermannCHEMISTRY 2012-03-14 22:50:001.2[facility] GvadfedUTDIEHGQO7164-31-92 22:50:003.8[facility] QaqmtvjYXCURUNLL5682-68-07 22:50:0021[facility] RgrobwrWSDXRZPXO6584-09-42 22:50:0016.8[facility] NliacgwLVETZMNRK3057-30-77 22:50:001.1[facility] YWFULSTWN5986-69-32 22:50:008.2[facility] AxfsreeCFGRIAREQ2775-32-35 22:50:003.8 [facility] KuwlilzXHRVFIGQK4725-72-39 22:50:000.7[facility] HermannCHEMISTRY 2012-03-14 22:50:68138Banymxez AryznhjFOHWIQHPA8975-61-00 22:50:0099[facility] DvuxpxgTYMVLQHFK5295-12-60 22:50:0027[facility] AjchfkaUATPESSUS6471-45-35 22:50:61666Nlwaqptu HiwbryrJEEOEKQXJ6271-64-11 22:50:0015[facility] KUBRISSSE0879-83-18 22:50:0024[facility] UahkojpVGTNMGYBK5697-96-48 22:50:0020 [facility] VfvstezFAONUNBVE9520-65-89 22:50:0067[facility]annCHEMISTRY 2012-03-14 22:50:004.4[facility] HfekmkdTZFTZOXDT3372-23-39 22:50:009.9[facility] JjlrjzdETGPYHEZNQ0812-87-65 22:50:0011.8[facility] KddncmoZWEPVPJQOI6779-60-73 22:50:0035.9[facility] DjlgfvzEXGMTBHAJW3480-49-54 22:50:00 Test Item Value Reference Range Interpretation Comments MCH (test code = MCH) 31.2 pg 27.0-31.0 H [facility] KvjreqeXMFYCASFDD1771-10-42 22:50:74303Nccbrqzj HermannHEMATOLOGY 2012-03-14 22:50:0013.1[facility] HhboiwgVLYGVFBOJB4602-01-71 22:50:0040.7[facility] YteasqfBOFXFZWJTN3663-65-80 22:50:0014.6[facility] MipxluyXLMLDWNLPU7376-85-08 22:50:0087.0[facility] XevokwbPEVARIDIHI9267-10-84 22:50:0011.7[facility] Vin RFJHXGSXAF2356-45-81 22:50:004.68[facility] IgcotsiIFRCCGOTHI8394-23-61 22:50:00 0.0[facility] HpzxyjlBZBVYBBBSW6229-37-57 22:50:000.2[facility]annHEMATOLOGY 2012-03-14 22:50:000.0[facility] IiqktquBKSWZZWEOF5944-16-59 22:50:000.4[facility] LpycljbBSQCJILOVX2523-78-45 22:50:0010.6[facility] BaojluwJSQWCLUMAE8911-18-91 22:50:000.7[facility] DlwxnbhLGKLFATHFX3083-27-81 22:50:003.4[facility] UATBVXKKCN1296-41-76 22:50:00Normal (03/14/2012 17:50:00)[facility] QETOCWZFLP6368-63-57 22:50:006.0[facility] FylkpybLTSFPLIPSK8735-49-51 22:50:000.0 [facility] RxlglsgFLPVMHBRSS3488-60-78 22:50:0090.4[facility]annHEMATOLOGY 2012-03-14 22:50:00Normal (03/14/2012 17:50:00)[facility] UZFZAIU5573-82-18 23:43:55197Mdadgnfa HermannBEDSIDE GLUCOSE DTKZQCE6315-47-48 17:40:62459Xdhnyaqw HermannBEDSIDE GLUCOSE TAVNRFY5603-76-08 13:34:02892Jantemtn GjjdtplYZCBOLHWV9726-47-97 00:00:00Negative (11/28/2011 19:00:00)[facility] CenterAycmupwOEOHVFJOBQ3746-62-57 00:00:00Performed (11/28/2011 19:00:00)[facility] CenterFagxjrxEFYMINVRMW7080-34-33 00:00:00Occasional /LPF (11/28/2011 19:00:00) [facility] CenterAilwlfoGBECTKARDF6994-68-04 00:00:00None Seen (11/28/2011 19:00:00) [facility] CenterCrgcwcsDRSSPEWSQQ2767-36-31 00:00:00Negative mg/dL (11/28/2011 19:00:00)[facility] CenterEgtkafwAZYKVLWMAG1465-92-89 00:00:00 Test Item Value Reference Range Interpretation Comments UA pH (test code = UA pH) 7.0 1 5.0-8.0 N [facility] HospitalEhufbugHHPJAGKDFP5797-45-79 00:00:00 Test Item Value Reference Range Interpretation Comments UA Spec Grav (test code = UA Spec 1.020 1 N Grav) [facility] HospitalHwzvetwRVFTGYLWEX1567-31-79 00:00:00Clear (11/28/2011 19:00:00)[facility] CenterZdqxsyiZERKGLFFPU1550-64-18 00:00:00Yellow *NA*(11/28/2011 19:00:00)[facility] CenterJwgswrrDZGTXMRZHQ2640-18-78 00:00:000.2[facility] ShojlfkTRFTLMZLJA7228-51-30 00:00:00Negative (11/28/2011 19:00:00)[facility] DqgqpdsMHUPUDCRZV3838-70-29 00:00:00Negative *NA*(11/28/2011 19:00:00)[facility] WldeyqkLASSOGFVJR8042-36-86 00:00:00>=80 mg/dL *ABN*(11/28/2011 19:00:00)[facility]annURINALYSIS 2011-11-29 00:00:00>=1000 mg/dL *ABN*(11/28/2011 19:00:00)[facility] MUYFDVQAHF8592-62-51 00:00:00Negative (11/28/2011 19:00:00)[facility] WXQRFYCQXR3783-73-26 00:00:00Negative (11/28/2011 19:00:00)[facility] MQYLTOSDK1552-86-16 20:41:0060[facility] HbjomwgINCDPSWBB7384-22-15 20:41:0041 [facility] MqkitogZBTRQSEGY5260-37-13 20:41:007.45[facility]annCHEMISTRY 2011-11-28 20:41:0037.0[facility] DmaffqwSPMKYDZQD7264-83-05 20:41:0092.0[facility] EngjxgsPUWCWTSAV8788-77-40 20:41:004[facility] DrrohlrWCAKLSTWM7866-98-20 20:41:00 28.5[facility] DgwpgixKKFSICETP6376-40-68 20:00:001.6[facility]annCHEMISTRY 2011-11-28 20:00:28925Bcvfmdpm GwpzmqmJEIEIYKWP1970-72-73 20:00:004.2[facility] VenlrazRWOXWBUXF6760-67-13 20:00:0023[facility] KctdoktBCUMQTMUP1637-94-85 20:00:0098[facility] SfoeitaVHBFAOYAL4542-39-50 20:00:003.8[facility] QDRXHCKHD2947-26-51 20:00:44252Qjyufmap MxecyqtHVRSWJRIA7977-20-06 20:00:000.7 [facility] FveirsnAOXDPQKCE5528-39-90 20:00:009[facility] XdrpzfkLHPZLIURI0171-98-75 20:00:12370Nrqulrag WccszqgANEMAEPUY7864-76-51 20:00:0013[facility] KAUGMWLJF0341-69-32 20:00:0020.8[facility] ItckqmrIAHXZTZWX3106-50-09 20:00:009.3 [facility] UgdeshgMOGCKSHCS1093-49-96 20:00:006.7[facility]annCHEMISTRY 2011-11-28 20:00:001.7[facility] EqlvaffZSGLWTOBN9756-87-99 20:00:002.5[facility] UjgqytbRMAKXIEWC9283-38-97 20:00:0018[facility] UbqwjxmKHNNJTUPK9506-46-94 20:00:0062[facility] JceddzwJPHEHMSDC3338-97-97 20:00:0032[facility] AEVGHCBAD4246-50-91 20:00:000.7[facility] TlyxrgzNKAMFHZDMK7710-34-57 20:00:001+ *ABN*(11/28/2011 15:00:00)[facility] BhtayyoQKZGHVKLVX2900-75-84 20:00:000.1 [facility] HguxcbyQORZQGHUZJ6533-90-11 20:00:000.0[facility]annHEMATOLOGY 2011-11-28 20:00:000.0[facility] DprtghtNSLIAOGXIB8680-78-39 20:00:00Slight *ABN*(11/28/2011 15:00:00)[facility] MwacaheLPUNNJPHZH1780-90-25 20:00:00Slight *ABN*(11/28/2011 15:00:00)[facility] OyiyumySESXPQOMUL9157-78-08 20:00:005.7 [facility] QuqdbyyKOXVAFQYMQ2825-87-71 20:00:000.8[facility]annHEMATOLOGY 2011-11-28 20:00:000.2[facility] OjcujouLUUMMJIUMW0592-84-30 20:00:000.0[facility] KaipaaoOCXTUUAYJJ3353-47-14 20:00:001.9[facility] BqmcvugPYKPISRZRA1737-26-79 20:00:0086.2[facility] RttiizmUFXECAYTQS3698-35-87 20:00:0011.7[facility] QLNHWDUYRQ4913-32-34 20:00:0010.8[facility] DnakbycGXULRCHRKR6944-69-65 20:00:00 161[facility] PpyzhjcLUZXTTPROH8658-99-66 20:00:0035.6[facility]annHEMATOLOGY 2011-11-28 20:00:0012.4[facility] IoosespVZTPLHNCVI9087-66-19 20:00:00 Test Item Value Reference Range Interpretation Comments MCH (test code = MCH) 30.7 pg 27.0-31.0 N [facility] YqqxfvoSKXGOASKJR4356-81-35 20:00:0086.1[facility] HermannHEMATOLOGY 2011-11-28 20:00:0033.6[facility] KikhnisVSYVONLHJP2529-03-61 20:00:0012.0[facility] KrzmqjdYUHFBCGIUA4549-92-66 20:00:003.90[facility] ZvvunqzCUKBVSLJOB7088-65-56 20:00:006.6[facility] PnuqnkdHTMQLKNQN1456-20-33 19:51:00See Note 5*NA*(11/28/2011 14:51:00)[facility] NtsbmuuEVBRHQAXF0289-81-16 19:51:00Negative *NA*(11/28/2011 14:51:00)[facility] NxlgyxwNDQPBPRFM9432-31-29 19:51:00Negative *NA*(11/28/2011 14:51:00)[facility] UtaszuqZGZLGCSQM6000-34-85 19:51:00Negative *NA*(11/28/2011 14:51:00)[facility] NrthdcaUUAOPVKWW7466-41-91 19:51:00Negative *NA*(11/28/2011 14:51:00)[facility] GeknykrMLUMTUAFU1500-92-60 19:51:00Negative *NA*(11/28/2011 14:51:00)[facility] OpjnqznGXZVMIJIQ4410-13-09 19:51:00Negative *NA*(11/28/2011 14:51:00)[facility] DshhlriPRZMLPSPK1785-46-90 19:51:00Negative *NA*(11/28/2011 14:51:00)[facility] WYUIPVI5169-55-04 16:20:09347Dsyakinb AlqcqipKPTYKJLDB7344-03-14 15:30:00Negative (09/18/2011 10:30:00)[facility] VyguenoJPWWUTVYUE9888-65-40 15:30:00None Seen (09/18/2011 10:30:00)[facility] KjtsdxcOZJZYOGSUK2222-85-74 15:30:00None Seen (09/18/2011 10:30:00)[facility] UghhcmvPCHHXDWAVL1106-07-73 15:30:00None Seen (09/18/2011 10:30:00)[facility] HospitalNpnmpvqEPZYIQZBYV3948-44-27 15:30:00Few /HPF *ABN*(09/18/2011 10:30:00)[facility] GoqhdxeJVSQRLXEKY4909-72-62 15:30:00Performed (09/18/2011 10:30:00)[facility] HospitalAgrdfwcMCQIVPEZAM0477-72-82 15:30:00Rare /LPF (09/18/2011 10:30:00)[facility] HospitalVeqhknoMDBOIXTZVY0799-67-70 15:30:0015 mg/dL *ABN*(09/18/2011 10:30:00)[facility] HospitalHnilfxbMOTTGDLVSQ9112-14-92 15:30:00>=1000 mg/dL *ABN*(09/18/2011 10:30:00) [facility] HospitalRovssrbCXNIEMVBTE9216-17-09 15:30:00Trace *ABN*(09/18/2011 10:30:00) [facility] HospitalRpbhuzqIIGCIOLCZJ3306-08-01 15:30:000.2[facility]annURINALYSIS 2011-09-18 15:30:00Negative (09/18/2011 10:30:00)[facility] HermannURINALYSIS 2011-09-18 15:30:00Negative *NA*(09/18/2011 10:30:00)[facility] HermannURINALYSIS 2011-09-18 15:30:00Negative (09/18/2011 10:30:00)[facility] HermannURINALYSIS 2011-09-18 15:30:00Negative (09/18/2011 10:30:00)[facility] HermannURINALYSIS 2011-09-18 15:30:00 Test Item Value Reference Range Interpretation Comments UA pH (test code = UA pH) 7.5 1 5.0-8.0 N [facility] EfgqakaJAQAEYYFTD5397-56-26 15:30:00 Test Item Value Reference Range Interpretation Comments UA Spec Grav (test code = UA Spec 1.010 1 N Grav) [facility] HrqiaapXGVSGVOOKS4183-11-25 15:30:00Slight Cloudy (09/18/2011 10:30:00) [facility] MkdwgeuWOABDRAYXQ5025-07-45 15:30:00Yellow *NA*(09/18/2011 10:30:00) [facility] GxsfldhVBSMDJKAQ0267-69-14 14:07:004.4[facility] HermannCHEMISTRY 2011-09-18 14:07:001.6[facility] HermannBEDSIDE GLUCOSE ZWEFZGM1702-98-66 14:01:00 >400[facility] HbfpdsfCLCCJRJDS2559-93-35 13:52:0092[facility] HermannCHEMISTRY 2011-09-18 13:52:0030[facility] YebnhseEEWOTHZDT6994-74-00 13:52:003.5[facility] BplnlfxWQAGALPMM5038-72-19 13:52:42248Porhfrju YntrtgvOSBIMLYPT2301-24-32 13:52:001.3[facility] PvmnzruEOESUAGHX0422-56-19 13:52:11357Iuxkldfh [place] BDZPCTJIL5943-03-65 13:52:0017[facility] ZkgivfqARPRBZORL2210-47-87 13:52:0014.5 [facility] GlknlyyRGDEVEZAMO6578-20-17 13:52:0012.0[facility] HermannHEMATOLOGY 2011-09-18 13:52:71962Jkagckcb KrneiigQTJLGOTXPO9511-96-37 13:52:0033.7[facility] FulxpznFWGRFMDXUS7927-99-80 13:52:00 Test Item Value Reference Range Interpretation Comments MCH (test code = MCH) 28.5 pg 27.0-31.0 N [facility] YkfoqjyUOBDUBKCIQ0154-08-91 13:52:0015.1[facility]annHEMATOLOGY 2011-09-18 13:52:0084.6[facility] YhnekajCGZEQLSZZS0451-51-11 13:52:0036.4[facility] AjdzktvNTPIAIMFDY1789-97-97 13:52:0012.3[facility] UbelbesTIQPHLDOLP5944-63-80 13:52:004.30[facility] WeipuqmHVHSYRLMGG3918-83-60 13:52:0011.7[facility] SKBWJBVABK5727-64-95 13:52:002.9[facility] BvpswzvAXRXMHEKCD4876-21-90 13:52:000.2 [facility] BnibqekEKXGWMQXXR3819-09-72 13:52:000.0[facility]annHEMATOLOGY 2011-09-18 13:52:000.0[facility] RsznkvmKNNOGCKQLV5646-56-22 13:52:000.3[facility] LhrbvnkEEKGEDYHWK5888-28-36 13:52:0092.0[facility] FtgdtvmKVEJBYPYRE4817-63-26 13:52:004.9[facility] ZgysecvZVCBYWDBQY6073-44-13 13:52:00Rare *ABN*(09/18/2011 08:52:00)[facility] PwulznlHRYNWLBKMF0722-92-19 13:52:00Slight *ABN*(09/18/2011 08:52:00)[facility] IzxrexwTLQRHMXDBA4412-11-30 13:52:001+ *ABN*(09/18/2011 08:52:00)[facility] SgmfdxjLXQAKLZUHW7672-70-89 13:52:001+ *ABN*(09/18/2011 08:52:00)[facility] RutpbxnGZNSWXIHCE2695-93-49 13:52:000.6[facility] HGFEXWIOJM5541-60-12 13:52:0010.8[facility] ImgoywrRTTGGLPIEW5513-29-55 13:52:00 0.0[facility] FddwqgfAMSWHCXNAW6681-40-51 13:52:001+ *ABN*(09/18/2011 08:52:00) [facility] WjwfanqLLCWOZBKMJ1497-26-53 13:52:00Negative *NA*(09/18/2011 08:52:00) [facility] GaepnbwXQLITGOEK0079-99-76 13:52:0024[facility] HermannCHEMISTRY 2011-09-18 13:52:0032.0[facility] YdqgkjmIUDLFOTJT4320-89-98 13:52:0044[facility] EdgtbfnUPTLRRQSA0930-90-10 13:52:007[facility] IexykpdHGZQWMVSP9832-96-94 13:52:00 48.0[facility] DifqigcYSLZSBVMM7435-81-64 13:52:0037.0[facility] HermannCHEMISTRY 2011-09-18 13:52:007.47[facility] XvyymllWOZBPPABF9596-52-85 13:52:0010.1[facility] HermannBEDSIDE GLUCOSE JIOZOGE4908-86-41 17:34:29119Tfyqzyic HermannBEDSIDE GLUCOSE RSLSIID7485-78-23 11:43:0091[facility]annBEDSIDE GLUCOSE TESTING 2011-09-09 02:45:42346Umryklqe BlkusytQLXTEIQGZ2725-45-05 08:47:63077Qhhkqjmc InrrfjxFMVTTHJUZ8600-84-30 08:47:49294Lhzlrhar YbbjbksJWYMQNNNR7190-04-98 08:47:0029[facility] UkyefbxCIYSHJAZZ7802-57-95 08:47:53150Xlqahwqt Vin KJAYIYPPB0149-79-31 08:47:0010[facility] BpnpxnkDDPOBOPUE5629-97-64 08:47:003.8 [facility] YscayitFYDEDOOKR7209-85-62 08:47:000.6[facility] HermannCHEMISTRY 2011-09-08 08:47:008.5[facility] AnfpzepUMUKCJMYN1190-55-84 08:47:0014.8[facility] UnhhaewUTEGMFOPLT4228-00-61 08:47:00 Test Item Value Reference Range Interpretation Comments MCH (test code = MCH) 28.9 pg 27.0-31.0 N [facility] JrbtebbKFLEZBPJRZ7583-78-82 08:47:0082.1[facility]annHEMATOLOGY 2011-09-08 08:47:0025.9[facility] PgnkcieXLVFLBTBEK4351-86-12 08:47:45218Cztrnqrb VumjnvgCJUDLMMTUN4780-73-31 08:47:0014.5[facility] TzjruhyVSVQTSFVMR7573-83-12 08:47:0035.2[facility] BfltculRRLBUBKEVE5512-97-32 08:47:009.1[facility] RWYUSVCCJI4166-35-19 08:47:003.15[facility] IyphdwuIRKPODZMSB6397-40-39 08:47:00 9.0[facility] GhmsirbNKTKVEYNFU7393-26-48 08:47:006.3[facility]annHEMATOLOGY 2011-09-08 08:47:000.0[facility] WniziksWZHRLWVLWA3892-72-45 08:47:000.0[facility] TyaywukFWMASSNEDG0882-22-29 08:47:003.8[facility] DgtdzswPTGICTXFNY5123-41-45 08:47:002.0[facility] SjyjtvaEYQLFGMTSB9240-49-97 08:47:000.5[facility] KOURLAROYA6477-56-74 08:47:000.7[facility] AjejrpvQGPFUDQMVX7052-07-74 08:47:006.2 [facility] JgeqgxhDKURBRFVNB4127-16-66 08:47:0061.1[facility]annHEMATOLOGY 2011-09-08 08:47:0031.5[facility] NouvunzIHYSGPHJSH8892-49-15 08:47:000.4[facility] FdizzicPVIUCDAKZ2261-05-65 10:54:0027[facility] DkpfmvlXIQRYDSZQ4693-89-33 10:54:04229Yrmukxud MlfratdRZUJWHLEE8436-53-94 10:54:000.5[facility] VGBLRKDUD8167-41-04 10:54:0010[facility] WwdfesxRRWXNJSGB5995-99-52 10:54:004.1 [facility] ZywaqcpXFNQRDYWG5644-16-73 10:54:88992Wvmygywk HermannCHEMISTRY 2011-09-07 10:54:0083[facility] XmmbdfpZVRUWRATX3635-61-72 10:54:008.4[facility] SvzricqLRDWOJNDG1817-36-95 10:54:0014.1[facility] BdhlqxxPMGOVDGXBW4111-61-77 10:54:0035.5[facility] RgilxjqDPAAEFHXXG2881-05-25 10:54:004.7[facility] XHZSDKMODO1222-47-99 10:54:0092.6[facility] RupknhdGACSCBAAAX0600-91-45 10:54:00 Test Item Value Reference Range Interpretation Comments MCH (test code = MCH) 31.4 pg 27.0-31.0 H [facility] CsuocpsZLFBEUFLKL8164-33-27 10:54:003.84[facility]annHEMATOLOGY 2011-09-07 10:54:0012.1[facility] JefspirMQAHKYLDCB6686-21-25 10:54:88673Ostqcreu XblbmtpUJSXOCYFAE1686-30-55 10:54:0012.7[facility] NqdcubfRVABOXCKLP6630-38-58 10:54:0033.9[facility] UolxtpzBODOSBSTFW0504-09-99 10:54:007.2[facility] OPWRYQBNTH2324-20-39 10:54:000.95[facility] CfxngqoHWVRKYXVRN6179-71-20 10:54:00 Test Item Value Reference Range Interpretation Comments PT (test code = PT) 12.7 s 12.0-14.7 N [facility] DjbzhczQOHKXJOMOP8652-84-53 10:54:00 Test Item Value Reference Range Interpretation Comments PTT (test code = PTT) 28.5 s 22.9-35.8 N [facility] WrrhjknJZKDDCFYAB6871-62-67 10:54:000.1[facility]annHEMATOLOGY 2011-09-07 10:54:000.0[facility] GfocpylMTWGGQMJLX2525-15-42 10:54:000.4[facility] MsjnvmdZVJIDZDBUL8565-95-26 10:54:002.1[facility] DohynruVFITWRKQWJ0561-24-26 10:54:009.0[facility] EioycsfWYWBARJOKQ0680-17-67 10:54:002.4[facility] YFPJUWHYQD0007-85-78 10:54:000.4[facility] BphmhicYWVBYDBXHM8885-29-46 10:54:002.0 [facility] OqetkdaWGRPCJPPGV1442-28-49 10:54:0042.8[facility]annHEMATOLOGY 2011-09-07 10:54:0045.4[facility] HqgujwkAUMMZKLSF3795-80-22 10:02:11294Haktwrft EveraqwRZLNRNJVP2366-39-76 10:02:004.1[facility] FmtzrroAQPIOEXJY2205-05-32 10:02:76316Thgjjxbn OpqtngrAZCMBVHOD1504-54-72 10:02:0029[facility] AACRLVGOD1167-52-58 10:02:008.7[facility] PrwpnsyUHNLXFHNC1137-35-76 10:02:006 [facility] RfvesnbZLNYOTWJH3693-58-84 10:02:000.6[facility] HermannCHEMISTRY 2011-09-07 10:02:33951Nowmvanp CaglukvNGWEYBCMA8489-56-18 10:02:0013.1[facility] SsksyjaXUEPSTGEVT9154-64-08 10:02:000.0[facility] ZabngjqAAFBERUNHB7648-66-82 10:02:000.3[facility] FdkyzplRAMNDQAJOQ6218-92-99 10:02:000.1[facility] CMMUYFMDNZ7457-26-95 10:02:002.8[facility] DbmfqfbKEHUKEYQKC4657-22-33 10:02:001.7 [facility] TxuiomkQQNFEVMYVE3180-83-11 10:02:000.6[facility]annHEMATOLOGY 2011-09-07 10:02:006.9[facility] DxodjfoUYWHQAWWYC3385-95-83 10:02:002.0[facility] NfhdjhkZUQKAWSEEV0732-68-99 10:02:0055.8[facility] TijwyrsEVMCJPIWPW7872-42-85 10:02:0034.7[facility] VgnwhpuAEYFMPUFJO8898-91-85 10:02:00 Test Item Value Reference Range Interpretation Comments PTT (test code = PTT) 32.2 s 22.9-35.8 N [facility] PdjhmxwXXESEXVTYA9607-40-66 10:02:00 Test Item Value Reference Range Interpretation Comments PT (test code = PT) 13.3 s 12.0-14.7 N [facility] DzrlcvfGKEVWVBUGR8906-08-95 10:02:001.01[facility]annHEMATOLOGY 2011-09-07 10:02:0027.5[facility] MqgwkvmIQKSZBJPEK2406-07-37 10:02:003.34[facility] CgqwdbvRUMTWZUWTC1408-31-39 10:02:009.7[facility] QscgtluLXDSNNQGXD6308-54-64 10:02:005.0[facility] GbcdmopJBUTNNWISM0814-68-14 10:02:009.2[facility] QAPBUYDXOF9548-31-56 10:02:52209Aunjoruq LntugtgQDGWAKCXKJ2957-00-83 10:02:00 14.3[facility] JrpyoykAYWEJTLWZV4051-75-10 10:02:0035.2[facility]annHEMATOLOGY 2011-09-07 10:02:00 Test Item Value Reference Range Interpretation Comments MCH (test code = MCH) 28.9 pg 27.0-31.0 N [facility] NqlbqqmSFNAAJBRAT9842-54-15 10:02:0082.1[facility] HermannCHEMISTRY 2011-09-03 09:24:002.1[facility] OktvneoQTQQEZYHK9277-29-99 17:10:0037.0[facility] FtjnaueONCIKJFUB7623-73-55 17:10:0027.0[facility] TgbrfpyOEBTAGISD0312-75-52 17:10:0047[facility] EtsimwfDKJDNGOEV7411-01-11 17:10:007.37[facility] TNCODCKFI1792-68-52 17:10:001[facility] PldzwrgEOEUKDFQX5019-53-40 17:10:0027.2 [facility] QqdocbcRKUQGOSKI2938-91-21 17:10:0019[facility] HermannCHEMISTRY 2011-09-01 13:09:001.0[facility] NtltvnlHODUOSAQI5966-69-07 12:20:00Negative (09/01/2011 07:20:00)[facility] OxjvwzsRYWVLDLLOI9270-02-03 12:20:00Occasional /LPF (09/01/2011 07:20:00)[facility] WrtsbwgTNRPICCFFR5602-72-88 12:20:00Negative (09/01/2011 07:20:00)[facility] PiytxlaNVZGXCMSEY9334-63-49 12:20:00Negative (09/01/2011 07:20:00)[facility] OwnpznbLEAFBGSIRC2666-28-74 12:20:000.2[facility] PymfxmyMZGBSYNSEF0797-57-44 12:20:00Negative (09/01/2011 07:20:00)[facility] RtodcilSNTQTJHKSB6567-71-66 12:20:00>=80 mg/dL *ABN*(09/01/2011 07:20:00) [facility] NjbjluxAQKUCRAQUP9257-91-87 12:20:00Negative (09/01/2011 07:20:00) [facility] TzxcwvnNDCQDBEVVH8449-50-87 12:20:00 Test Item Value Reference Range Interpretation Comments UA pH (test code = UA pH) 6.0 1 5.0-8.0 N [facility] KgymfadGTEIRELONQ6395-01-90 12:20:00Negative (09/01/2011 07:20:00) [facility] KzhutitWAELVYFDCW7836-16-48 12:20:00>=1000 mg/dL *ABN*(09/01/2011 07:20:00)[facility] EvvtqdxLXRHXPBQVR5488-45-91 12:20:00 Test Item Value Reference Range Interpretation Comments UA Spec Grav (test code = UA Spec 1.035 1 H Grav) [facility] MrburraEQEPRPCOQN0004-49-49 12:20:00Clear (09/01/2011 07:20:00)[facility] BdvmdhtXSRFPOHMDP6560-89-08 12:20:00Yellow *NA*(09/01/2011 07:20:00)[facility] KicakqfCTHYFHZJU4269-43-31 08:00:002.8[facility] LipnkdwZGUHGVKFS2334-54-46 07:47:001.5[facility] QcqkzvsPEZCNJQROW7929-58-34 07:47:00Slight (09/01/2011 02:47:00)[facility] LvucwogTLBUOCQENM8749-44-06 07:47:001+ *ABN*(09/01/2011 02:47:00)[facility] RbuvgflSBCMMUNWXF1887-35-71 07:47:00Slight *ABN*(09/01/2011 02:47:00)[facility] ClmrvkyXKTJRDWSPX1642-17-08 07:47:00Slight *ABN*(09/01/2011 02:47:00)[facility] FQLYMXC7801-11-58 17:02:02520Dcsuzgif HermannBEDSIDE GLUCOSE ZRJHNJN1184-12-36 13:45:06205Qapafljv HermannCHEMISTRY 2011-08-23 10:22:003.0[facility] QjbgxseFLHOZGVNZ1207-88-56 10:22:001.8[facility] AywmfsmYLQZTIDGT6981-58-44 10:22:84817Ljxenpar QcctaozVSAQEGHFU3806-36-42 10:22:003.0[facility] LfrgkhvHCDTRVOKN2779-64-89 10:22:76133Xbkffdxr [place] WMRWIQITH3448-91-38 10:22:000.6[facility] TkekcovZWZOWJLNA4036-72-81 10:22:0023 [facility] RnkznrvYUERNEREL8316-15-77 10:22:007.3[facility] HermannCHEMISTRY 2011-08-23 10:22:62777[place] RjwmhxmWHFTCPCTL9294-31-12 10:22:0014.0[facility] YneboqcUBYSKKCMI6932-08-89 10:22:005[facility] JlidcvlSLUGKEONWI4153-51-69 10:22:0069.6[facility] NsjpshdFGOKFSXUQU2359-27-28 10:22:0021.5[facility] Vin NSEZEIGKIQ3715-17-88 10:22:007.6[facility] PhixagqEWMMNFKMVO8406-70-25 10:22:001.0 [facility] HolznndKEJVJWWMEU8730-73-95 10:22:000.3[facility] HermannHEMATOLOGY 2011-08-23 10:22:004.8[facility] SwhlmstFBBJSOYVIZ1499-32-76 10:22:000.1[facility] AtovdquECAPCTEAEE4128-57-95 10:22:001.5[facility] EkvsikgBPUFSDJGWJ5015-62-03 10:22:000.5[facility] DnvyjbyQYSWTXLTOA2308-12-04 10:22:000.0[facility] DLFNGDTPYC1574-87-55 10:22:0011.0[facility] TonhpyeNTIBXUUXGO7159-52-25 10:22:00 161[facility] DpxcxwoDGFFSPKDBD4117-90-88 10:22:00 Test Item Value Reference Range Interpretation Comments MCH (test code = MCH) 29.6 pg 27.0-31.0 N [facility] VkrfntdHDPPCYSOVG3834-46-49 10:22:0035.4[facility] HermannHEMATOLOGY 2011-08-23 10:22:0014.1[facility] QodheggQDNDXUMOUC2685-11-62 10:22:006.8[facility] RdroitnEJIXKEOSNN9681-24-71 10:22:0083.5[facility] BidwrnkCJTIRIATOE8136-19-65 10:22:004.44[facility] ZfxqguyWKKVJPVHXT7435-63-83 10:22:0013.1[facility] [place] VVOUJXUZUL9642-12-79 10:22:0037.1[facility] HermannBEDSIDE GLUCOSE TESTING 2011-08-23 02:20:92441Lfcdzrya ZldpyjuZMANEYOEC1002-43-39 09:47:002.5[facility] PocmysxNEHGXFAGL7954-41-98 09:47:26749Asxbbaeb BpqsdqxBRJQOQDMH0329-04-68 09:47:007[facility] YpmtfwgXTPMSODPZ1842-15-51 09:47:0019[facility] HermannCHEMISTRY 2011-08-22 09:47:000.3[facility] AfwwvteEDZGDUZRB7357-90-89 09:47:10275Xbmsybyp JkqiygfWSRRAISAW4156-62-42 09:47:24271Luhpyutm QxfwelrNHZGAFTKG7157-19-70 09:47:003.6[facility] WptozxoXLTRLAOUO3749-35-37 09:47:007.9[facility] Vin RFXNXELVY3617-82-34 09:47:0018.6[facility] FhwtlgxLDWZMJFZC9467-71-35 09:47:001.6 [facility] KbyjhofOURMTQQFCH4651-23-95 09:47:000.0[facility] HermannHEMATOLOGY 2011-08-22 09:47:000.4[facility] HkahpcpLTUSJPLQRS6100-63-38 09:47:000.5[facility] AvrauimTLZCPDWDCE7114-69-28 09:47:005.9[facility] LwdzjnmJOEUDXMFQM1846-41-75 09:47:001.2[facility] OhzhaorFHIDNFJUZP2098-68-83 09:47:000.5[facility] [place] VXCQGPJKNY9238-88-45 09:47:000.0[facility] PklxmkoECGCNAPBHR6155-54-34 09:47:00 76.9[facility] CtxcpnlHJKEBVYLQI0481-49-85 09:47:0015.9[facility] HermannHEMATOLOGY 2011-08-22 09:47:006.3[facility] YbnviglUHMZCUXKNH7350-88-55 09:47:0082.8[facility] KycqqvoZNJHNSJRWO6324-44-36 09:47:0039.7[facility] AtafsaxIOGODPLJTI3853-59-15 09:47:00 Test Item Value Reference Range Interpretation Comments MCH (test code = MCH) 29.1 pg 27.0-31.0 N [facility] NiselfkXAYQZLDBAS4688-70-64 09:47:0014.0[facility] HermannHEMATOLOGY 2011-08-22 09:47:0035.2[facility] BdyottrFSLJKKQDRY2656-13-34 09:47:0013.9[facility] GahqiucKOVLTUGNBA6571-01-59 09:47:86356Kzqmpjhi ZwfgztjUAZRSYMHJM8802-69-15 09:47:0011.9[facility] UhjffrvJFDBPJNJZY9843-06-51 09:47:007.7[facility] [place] VGOMDYJGBW0842-53-79 09:47:004.80[facility] CcwpuliANXLDWQPZ7614-82-63 10:28:002.6 [facility] KgejfbeICFCQMVQV0464-69-03 10:28:001.8[facility] HermannCHEMISTRY 2011-08-21 10:28:003.7[facility] KshcgliFMFBIVFVR0159-74-50 10:28:80396Qzsokqpo BipbtkaDWWJDMGPR5952-17-89 10:28:000.6[facility] RrdbegzNMHJHTGWR9634-29-75 10:28:0016[facility] AmoaeltROUWFFJRT9376-05-98 10:28:42126Cxdiirzy [place] FVWYHLZKU1945-85-69 10:28:008.3[facility] YplalfwVBQDQLXAO3351-64-43 10:28:0019.7 [facility] PwsigthULYGRCFPU7240-39-24 10:28:0099[facility]annCHEMISTRY 2011-08-21 10:28:0022[facility] FzwtcrfKYZLFUGSVL6863-32-77 10:28:82020Hqpxmrur LhxoqquCQHZIPGFDF3619-55-46 10:28:0012.0[facility] OpvioorYKOAEPIRYL7733-64-12 10:28:007.3[facility] UuuxeqgSEOIBBXEGD2422-36-13 10:28:0014.6[facility] Vin WYBHAPBWKR6542-19-49 10:28:0035.0[facility] AppfnvqMITBEHMVBS6492-23-11 10:28:00 4.54[facility] BctdrfiMVXWRLQUZO9442-59-04 10:28:0037.6[facility] HermannHEMATOLOGY 2011-08-21 10:28:0082.9[facility] AjrjggnRLWRRDHHSN3325-84-13 10:28:00 Test Item Value Reference Range Interpretation Comments MCH (test code = MCH) 29.0 pg 27.0-31.0 N [facility] QpprbgaJMPAOOPJXR8059-38-92 10:28:0013.2[facility] HermannHEMATOLOGY 2011-08-21 10:28:00Slight *ABN*(08/21/2011 04:28:00)[facility]annHEMATOLOGY 2011-08-21 10:28:00Slight (08/21/2011 04:28:00)[facility]annHEMATOLOGY 2011-08-21 10:28:000.0[facility] PzrovdlDKRCDXGNKH6130-35-37 10:28:00Slight (08/21/2011 04:28:00)[facility] XtdhnvfMBRUSYHAJC0577-50-87 10:28:000.6[facility] NxaykbbIQEOYVUXWP6957-86-84 10:28:000.0[facility] QrzyeamEFDCETQLUD4900-49-63 10:28:005.3[facility] CmddkmzLPXZJFNVLO0179-58-58 10:28:001.3[facility] [place] MRADHZWRNZ9830-15-63 10:28:000.5[facility] AfgrugrYZZSVEWGIU4940-95-87 10:28:008.5 [facility] HynykloCSQXMXWIQJ1125-28-33 10:28:000.3[facility] HermannHEMATOLOGY 2011-08-21 10:28:0017.3[facility] YyoikmvIPANAGPVOA6458-22-99 10:28:0073.4[facility] IgxkucbKJNIHMPQK0334-67-10 21:58:00Negative (08/19/2011 15:58:00)[facility] HbidkcmXRVNBFEWT6689-04-67 21:58:00679Aolnjdps IiwgyssFXIQGPPNJ2288-84-17 21:58:0054[facility] WubhrpwWJPGNIGMM4516-85-48 21:58:49879Tymffuhf [place] HKFERSKXX2254-92-97 21:58:000.1[facility] ZddrtrsZHPFDVNSS9747-73-64 21:58:000.9 [facility] VwvheovNGXMWMWNL0989-73-96 21:58:004.4[facility] HermannCHEMISTRY 2011-08-19 21:58:008.8[facility] KrvzqrbVEIVUIUPD4622-34-52 21:58:000.8[facility] GncafjsXVJBYFNVC1287-47-82 21:58:0036[facility] YoudfllDDZLPTYPZ5592-88-53 21:58:004.4[facility] GwgpzamXTLWRRNRV4962-87-87 21:58:001.0[facility] Vin KBAXLKFYFA7093-42-29 21:58:00Occasional /HPF (08/19/2011 15:58:00)[facility] BlsgunnSYZIWQDOZK1181-20-71 21:58:003-5 /HPF *ABN*(08/19/2011 15:58:00)[facility] SlmytjoQYCGMFGAAN9365-89-04 21:58:003[facility] BsdpmlwPFRAYVJSAK2567-40-74 21:58:00Few /LPF (08/19/2011 15:58:00)[facility]XxkcvnuNPYYVFWTQW0144-21-55 21:58:00Occasional /HPF *ABN*(08/19/2011 15:58:00)[facility] 2011-08-19 21:58:000.2[facility] QprwgzrODVUDHQUMP1178-22-56 21:58:00Rare /LPF (08/19/2011 15:58:00)[facility]ti[facility]UKJCRDZSR4269-19-79 21:58:00Performed (08/19/2011 15:58:00)[facility] CenterYumtcqeXKCIAIGIHD2320-62-18 21:58:00Negative (08/19/2011 15:58:00)[facility]xqzwjlZSLJXXGLHW1480-36-61 21:58:00Negative (08/19/2011 15:58:00)[facility] CenterIlqjemtJQDVVQYEAN8608-77-67 21:58:00 Test Item Value Reference Range Interpretation Comments UA pH (test code = UA pH) 5.5 1 5.0-8.0 N [facility] CenterLnygyerDGNSQSNQYC8136-73-83 21:58:00Trace *ABN*(08/19/2011 15:58:00) [facility] CenterWboozysLDXWXOJKXM3874-72-68 21:58:00Negative (08/19/2011 15:58:00) [facility] CenterJlbsgtlIKXIRGQHAK7814-02-00 21:58:0080 mg/dL *ABN*(08/19/2011 15:58:00) [facility] CenterAfyecjhEWCHHTPEPC8242-80-97 21:58:00>=1000 mg/dL *ABN*(08/19/2011 15:58:00)[facility] CenterIjfnbtwKITWHJSSMA6059-70-18 21:58:00Negative (08/19/2011 15:58:00)[facility] CenterFzibfsdFSIUHQBASJ2850-81-47 21:58:00Slight Cloudy (08/19/2011 15:58:00)[facility] CenterDpycfiiTLGHFMRWZH8173-70-68 21:58:00 Test Item Value Reference Range Interpretation Comments UA Spec Grav (test code = UA Spec 1.025 1 Grav) [facility] GrlahgmIVZXZOSNMO1420-74-61 21:58:00Yellow (08/19/2011 15:58:00) [facility] ZhlfsugGWISUBVHH0053-58-89 21:13:0023[facility] HermannCHEMISTRY 2011-08-19 21:13:001.0[facility] AhrnnavJOLDYXQGA2156-54-60 21:13:31747Oycjuilk WeefjdnIPZEEEHXW6523-50-57 21:13:0056[facility] AkhmdnzVRUMXWFJK4225-67-80 21:13:009.0[facility] BhgnvopWCVJEJEIJ5881-38-31 21:13:004.8[facility] Vin ZDFUQFICN7347-20-47 21:13:004.2[facility] EjbreikSMVZWZRAT9038-10-84 21:13:001.1 [facility] GgsffptELNGLTFDY9859-11-11 21:13:0030[facility]annHEMATOLOGY 2011-08-19 21:13:00Normal (08/19/2011 15:13:00)[facility] 2011-08-19 21:13:00Slight *ABN*(08/19/2011 15:13:00)[facility]ann[facility] 2011-08-19 21:13:000.0[facility] QktsuriADZVCCFGNV0262-93-22 21:13:000.0[facility] PymthdfETGTCFFTL8355-87-07 21:10:0074.0[facility] RaidhrhOMDRCRYJD2264-08-72 21:10:0037.0[facility] RoxymgrKLZKAGKNY8495-94-02 21:10:0042[facility] RJJEQQUJX7212-97-49 21:10:0017.3[facility] DyfxfavVOSXMIFNR2326-71-32 21:10:007.34 [facility] QtbloeyRCGFWXSZJ7130-79-72 21:10:0032[facility]annCHEMISTRY 2011-08-19 21:10:00-7[facility] SxzxzdbQUQXKWNYJT2685-49-75 20:34:00Negative *NA*(08/19/2011 14:34:00)[facility]
[2020-11-05 14:00] LABS: Absolute Lymphocytes (CBC) 0.4 K/uL (0.7-4.9); Basophils % 0.2 % (0-1.3); Hematocrit 31.4 % (36.0-45.0); Lymphocytes % 5.4 % (15.3-44.8); MPV 11.5 fL (7.6-11.3); RBC Red Blood Cell Count 3.49 M/uL (3.86-4.86)
[2020-11-05] MEDS ORDERED: FAMOTIDINE 20 MG/2 ML VIAL IV ONE (14:17)
[2020-11-05] MEDS ORDERED: PROMETHAZINE INJ 25 MG/ML AMP ONE (14:17)
[2020-11-05] MEDS ORDERED: HYDROMORPHONE HCL 1 MG/ML INJ ONE ×2 (14:17→18:54)
[2020-11-05] MEDS ORDERED: NA CHLORIDE 0.9% 250 ML ONE (14:17)
[2020-11-05 14:19] LABS: ALT/SGPT 21 U/L (12-78); AST/SGOT 18 U/L (15-37); Albumin 3.5 g/dL (3.4-5.0); Alkaline Phosphatase 82 U/L (45-117); BUN Blood Urea Nitrogen 22 mg/dL (7-18); Bicarbonate 30 mmol/L (21-32); Bilirubin Direct 0.3 mg/dL (0-0.2); Bilirubin Total 0.9 mg/dL (0.2-1.0); Blood Morphology Comment NOT SEEN (NOT SEEN); Lipase 989 U/L (73-393); Magnesium 1.8 mg/dL (1.8-2.4); Platelet Estimate DECR; Potassium 3.8 mmol/L (3.5-5.1); Protein, Total 7.7 g/dL (6.4-8.2); Sodium Level 130 mmol/L (136-145); White Blood Cell Scan OK (OK)
[2020-11-05 14:27] LABS: Glucose Level 650 mg/dL (74-106)
[2020-11-05 14:37] LABS: Arterial Blood Carboxyhemoglob 1.5 % (0-1.5); Blood O2 Saturation 77.9 % (92-98.5)
--- NOTE | 2020-11-05 15:46 | RAD REPORT ---
EXAM DESCRIPTION: CT - Abdomen Pelvis Wo Contrast - 11/05/2020 3:17 pm CLINICAL HISTORY: Abdominal pain COMPARISON: October 26, 2020 TECHNIQUE: Computed axial tomography of the abdomen and pelvis was obtained. IV and oral contrast we re not requested. All CT scans are performed using dose optimization technique as appropriate and may include automated exposure control or mA/KV adjustment according to patient size. FINDINGS: The evaluation of solid organs, vessels and bowel is limited secondary to the lack of con trast administration. Mild bibasilar ground-glass opacities within the lungs. Spleen is upper limits normal size. The liver, pancreas and adrenals grossly normal No hydronephrosis. A renal mass is not seen. Cholelithiasis. Gallbladder wall appears mildly thickened. There is no evidence of diverticulitis. Vascular calcifications. Air within the bladder IMPRESSION: Cholelithiasis. Thickened gallbladder wall may indicate cholecystitis or be related to h ypoalbuminemia. Air within the bladder can be normal if the patient has had recent instrumentation. Infection can als o result in this appearance.
[2020-11-05] MEDS ORDERED: INSULIN -REGULAR HUMAN 50 UNIT/0.5 ML ML ONE ×2 (15:48→21:34)
[2020-11-05] MEDS ORDERED: DICYCLOMINE HCL 20 MG/2 ML AMP IM ONE (15:53)
[2020-11-05] MEDS ORDERED: ACETAMINOPHEN 500 MG TAB PO PRN (16:21)
[2020-11-05] MEDS ORDERED: MORPHINE 2 MG/ML SYR IV PRN (16:21)
--- NOTE | 2020-11-05 16:28 | ER ---
Nurse's Notes [facility] Name: Cathi Zaldivar Age: 40 yrs Sex: Female : 1980 Arrival Date: 11/05/2020 Time: 13:41 Bed 25 Private MD: Diagnosis: Diabetes mellitus due to underlying condition with hyperglycemia;Acute pancreatitis Presentation: 11/05 13:43 Chief complaint: EMS states: sharp abd pain, n/v started today. BP 249/127 HR-94 sv BS-HIGH. Coronavirus screen: Client reports previous positive COVID test result. Ebola Screen: No symptoms or risks identified at this time. Risk Assessment: Do you want to hurt yourself or someone else? Patient reports no desire to harm self or others. Onset of symptoms was November 05, 2020. 13:43 Acuity: JESSICA 2 sv 13:43 Method Of Arrival: EMS: [facility] sv 15:41 Initial Sepsis Screen: Does the patient meet any 2 criteria? No. Patient's initial tw2 sepsis screen is negative. Does the patient have a suspected source of infection? No. Patient's initial sepsis screen is negative. Triage Assessment: 13:45 General: Appears uncomfortable, obese, unkempt, Behavior is crying, fussy. Pain: tw2 Complains of pain in abdomen. Neuro: Level of Consciousness is awake, alert, obeys commands, Oriented to person, place, time, situation. Cardiovascular: Capillary refill < 3 seconds Patient's skin is warm and dry. Cardiovascular: Dialysis shunt: in the right arm. Respiratory: Airway is patent. GI: Reports lower abdominal pain, upper abdominal pain, nausea, vomiting. : No signs and/or symptoms were reported regarding the genitourinary system. Derm: No signs and/or symptoms reported regarding the dermatologic system. Musculoskeletal: Range of motion: intact in all extremities. SWORD SWALLOWER: 15:41 LMP N/A - tw2 Historical: - Allergies: 13:45 ambien; sv 13:45 Codeine; sv 13:45 GUAIFENESIN; sv 13:45 Ibuprofen; sv 13:45 Lisinopril; sv 13:45 Morphine; sv 13:45 Nitrofurantoin Macrocrystal; sv 13:45 PENICILLINS; sv 13:45 Prolixin; sv 13:45 zolpidem tartrate; sv - PMHx: 13:45 CHF; Dialysis; m-w-f; ENCEPHALOPATHY; Gastroparesis; cyclic vomiting syndrome; Diabetes sv - NIDDM; chronic kidney disease; "mental problems"; HD-TTHSat; Hypertension; liver failure; PERIPHERAL NEUROPATHY; Seizures; - Immunization history:: Adult Immunizations. - Social history:: Smoking status: . Screenin:59 Abuse screen: Denies threats or abuse. Nutritional screening: No deficits noted. tw2 Tuberculosis screening: No symptoms or risk factors identified. Fall Risk None identified. Assessment: 13:45 Reassessment: see triage assessment. tw2 14:37 Reassessment: RT at bedside at this time. tw2 14:37 Reassessment: Patient appears in no apparent distress at this time. Patient and/or tw2 family updated on plan of care and expected duration. Pain level reassessed. Patient states feeling better. 15:08 Reassessment: Patient appears in no apparent distress at this time. Patient and/or tw2 family updated on plan of care and expected duration. Pain level reassessed. Patient states feeling better. 15:38 Reassessment: pt c/o "my stomach pain is starting to come back, it just came all of a tw2 sudden", provider notified and medicated as ordered. 19:05 Reassessment: Patient appears in no apparent distress at this time. Patient and/or jb4 family updated on plan of care and expected duration. Pain level reassessed. Patient is alert, oriented x 3, equal unlabored respirations, skin warm/dry/pink. Report given to TABATHA Vincent. Vital Signs: 14:29 Pulse Ox 77% on R/A; tw2 14:37 BP 182 / 81; Pulse 70; Resp 17; Temp 97.9(TE); Pulse Ox 100% on 3 lpm NC; tw2 15:03 BP 201 / 85; Pulse 70; Resp 17; Pulse Ox 100% on 3 lpm NC; tw2 19:00 BP 182 / 100; Pulse 71; Resp 18; Pulse Ox 100% on 3 lpm NC; jb4 14:29 pt noted to be sleeping with mouth open, pt arousable to name, o2 at 3L nc, pt states tw2 "i use 3 L nc at home and they told me in EMS i didnt need it", provider notified and RT paged 15:03 provider notified of bp tw2 ED Course: 13:41 Patient arrived in ED. sv 13:43 Luis Ruvalcaba PA is PHCP. cp 13:43 Dinesh Stallworth MD is Attending Physician. cp 13:43 Bed in low position. Call light in reach. Pulse ox on. NIBP on. tw2 13:44 Triage completed. sv 13:53 Initial lab(s) drawn, by me, sent to lab. Inserted saline lock: 22 gauge in left jl7 forearm, using aseptic technique. Blood collected. 14:37 Arm band placed on. tw2 14:53 Lipase Sent. sv 14:53 Hepatic Function Sent. sv 14:53 CBC with Diff Sent. sv 14:54 Basic Metabolic Panel Sent. sv 14:54 ABG Sent. sv 14:54 Ketone, Serum Sent. sv 14:54 Magnesium Sent. sv 15:02 Bailee Escamilla, RN is Primary Nurse. hb 15:48 Azucena Matthews, RN is Primary Nurse. hb 16:27 Ladarius Barth MD is Hospitalizing Provider. cp 17:09 CORONAVIRUS Sent. sv 17:09 COVID-19 : Document "Date of Symptom Onset" if Symptomatic. Sent. sv 17:09 CT Abd/Pelvis - Without Contrast Sent. sv 18:39 No provider procedures requiring assistance completed. Patient admitted, IV remains in hb place. Administered Medications: 14:00 Drug: Pepcid (famotidine) 20 mg Route: IVP; Site: left forearm; jl7 14:00 Drug: NS 0.9% 250 ml Route: IV; Rate: 500 ml/hr; Site: left forearm; jl7 14:33 Follow up: Response: No adverse reaction; IV Status: Completed infusion; IV Intake: tw2 250ml 14:03 Drug: Phenergan (promethazine) 25 mg Route: IVP; Site: left forearm; jl7 14:07 Drug: Dilaudid (HYDROmorphone) 1 mg Route: IVP; Site: left forearm; jl7 15:32 Drug: Insulin Regular Human 10 units {Co-Signature: tw2 (Azucena Matthews RN).} Route: IVP; hb Site: left forearm; 15:37 Drug: Bentyl (dicyclomine) 20 mg Route: IM; Site: left deltoid; tw2 Intake: 14:33 IV: 250ml; Total: 250ml. tw2 Outcome: 16:28 Decision to Hospitalize by Provider. cp 18:39 Admitted to ER Hold. Please see [facility] for further documentation. hb 18:39 Condition: stable 18:39 Instructed on the need for admit, Demonstrated understanding of instructions. 11/07 13:58 Patient left the ED. mt Signatures: Janie Ricketts RN RN Luis Nazario PA PA cp Bailee Escamilla RN TABATHA Azucena Matthews RN RN tw2 Silverio Macias RN RN jb4 Sophie Rubio RN RN jl7 Aster Russ mo Azucena Matthews RN tw2 Corrections: (The following items were deleted from the chart) 11/05 14:37 14:29 Pulse Ox 77% RA; pt noted to be sleeping with mouth open, pt arousable to name, tw2 o2 at 3L nc, pt states "i use 3 L nc at home and they told me in EMS i didnt need it"; tw2 15:38 14:37 BP 182 / 81; Pulse 70bpm; Resp 17bpm; Pulse Ox 100% 3 lpm Nasal Cannula; tw2 tw2
--- NOTE | 2020-11-05 16:28 | EDPHYS ---
Physician Documentation [facility] Name: Cathi Zaldivar Age: 40 yrs Sex: Female : 1980 Arrival Date: 11/05/2020 Time: 13:41 Bed 25 Private MD: ED Physician Dinesh Stallworth HPI: 11/05 13:50 This 40 yrs old Female presents to ER via EMS with complaints of cp Nausea/Vomiting, Abdominal Pain. 13:50 The patient presents to the emergency department with nausea, with "dry heaves", cp vomiting, that is continuous, described as bilious, abdominal pain, of the abdomen diffusely. Onset: The symptoms/episode began/occurred this morning. Possible causes: flare up of bowel problem, gastroparesis. Associated signs and symptoms: Pertinent negatives: diarrhea, fever, GI bleeding. Severity of symptoms: in the emergency department the symptoms are unchanged despite home interventions. [employer]OVE [employer]NER AND FORMER: 15:41 LMP N/A - tw2 Historical: - Allergies: 13:45 ambien; sv 13:45 Codeine; sv 13:45 GUAIFENESIN; sv 13:45 Ibuprofen; sv 13:45 Lisinopril; sv 13:45 Morphine; sv 13:45 Nitrofurantoin Macrocrystal; sv 13:45 PENICILLINS; sv 13:45 Prolixin; sv 13:45 zolpidem tartrate; sv - PMHx: 13:45 CHF; Dialysis; m-w-f; ENCEPHALOPATHY; Gastroparesis; cyclic vomiting syndrome; Diabetes sv - NIDDM; chronic kidney disease; "mental problems"; HD-TTHSat; Hypertension; liver failure; PERIPHERAL NEUROPATHY; Seizures; - Immunization history:: Adult Immunizations. - Social history:: Smoking status: . ROS: 13:55 Constitutional: Positive for poor PO intake, Negative for body aches, chills, fever. cp 13:55 Eyes: Negative for injury, pain, redness, and discharge. cp 13:55 ENT: Negative for ear pain, sore throat, difficulty swallowing, difficulty handling secretions. 13:55 Cardiovascular: Negative for chest pain. 13:55 Respiratory: Negative for cough, shortness of breath, wheezing. 13:55 Abdomen/GI: Positive for abdominal pain, nausea and vomiting, Negative for diarrhea, constipation, hematemesis. 13:55 Skin: Negative for cellulitis, rash. 13:55 Neuro: Negative for altered mental status. 13:55 All other systems are negative. Exam: 14:00 Constitutional: The patient appears in no acute distress, alert, awake, non-toxic, well cp developed, well nourished, uncomfortable. 14:00 Head/Face: Normocephalic, atraumatic. cp 14:00 Eyes: Periorbital structures: appear normal, Conjunctiva: normal, no exudate, no injection, Sclera: no appreciated abnormality, Lids and lashes: appear normal, bilaterally. 14:00 ENT: External ear(s): are unremarkable, Nose: is normal, Mouth: Lips: moist, Oral mucosa: moist, Posterior pharynx: Airway: no evidence of obstruction, patent. 14:00 Chest/axilla: Inspection: normal, Palpation: is normal, no crepitus, no tenderness. 14:00 Respiratory: the patient does not display signs of respiratory distress, Respirations: normal, no use of accessory muscles, no retractions, labored breathing, is not present, Breath sounds: are clear throughout, no decreased breath sounds. 14:00 Abdomen/GI: Inspection: abdomen appears normal, Bowel sounds: active, all quadrants, Palpation: soft, in all quadrants, severe abdominal tenderness, in all quadrants, rebound tenderness, is not appreciated, voluntary guarding, is elicited in all quadrants. 14:00 Neuro: Orientation: to person, place \\T\\ time. Mentation: is normal. Vital Signs: 14:29 Pulse Ox 77% on R/A; tw2 14:37 BP 182 / 81; Pulse 70; Resp 17; Temp 97.9(TE); Pulse Ox 100% on 3 lpm NC; tw2 15:03 BP 201 / 85; Pulse 70; Resp 17; Pulse Ox 100% on 3 lpm NC; tw2 19:00 BP 182 / 100; Pulse 71; Resp 18; Pulse Ox 100% on 3 lpm NC; jb4 14:29 pt noted to be sleeping with mouth open, pt arousable to name, o2 at 3L nc, pt states tw2 "i use 3 L nc at home and they told me in EMS i didnt need it", provider notified and RT paged 15:03 provider notified of bp tw2 MDM: 13:44 Patient medically screened. cp 14:00 Differential diagnosis: gastritis, pancreatitis, viral gastroenteritis, gastroenteritis.cp 16:10 Data reviewed: vital signs, nurses notes, lab test result(s), radiologic studies, CT cp scan. 16:10 Counseling: I had a detailed discussion with the patient and/or guardian regarding: the cp historical points, exam findings, and any diagnostic results supporting the discharge/admit diagnosis, lab results, radiology results. Response to treatment: the patient's symptoms have markedly improved after treatment, and as a result, I will admit patient. 11/05 13:44 Order name: Basic Metabolic Panel cp 11/05 13:44 Order name: CBC with Diff cp 11/05 13:44 Order name: Hepatic Function cp 11/05 13:44 Order name: Lipase cp 11/05 13:44 Order name: Magnesium cp 11/05 13:44 Order name: ABG cp 11/05 13:44 Order name: Ketone, Serum cp 11/05 14:02 Order name: CBC with Automated Diff; Complete Time: 14:27 EDMS 11/05 14:28 Interpretation: Normal except: WBC 6.70; RBC 3.49; HGB 10.3; HCT 31.4; PLT 136; RDW cp 16.5; MPV 11.5; YASMINE% 88.5; LYM% 5.4; LYMA 0.4. 11/05 14:05 Order name: Acetone Level; Complete Time: 14:28 EDMS 11/05 14:28 Interpretation: Within normal limits: ACET NEG. cp 11/05 14:20 Order name: CBC Smear Scan; Complete Time: 14:27 EDMS 11/05 14:27 Order name: Basic Metabolic Panel; Complete Time: 14:53 EDMS 11/05 16:01 Interpretation: Normal except: NA 130; CL 93; GLUC 650; BUN 22; CRE 4.36; GFR 11. cp 11/05 14:27 Order name: Liver (Hepatic) Function; Complete Time: 14:53 EDMS 11/05 16:01 Interpretation: Normal except: BILID 0.3; GLOB 4.2; A/G 0.8. cp 11/05 14:27 Order name: Magnesium; Complete Time: 14:53 EDMS 11/05 14:27 Order name: Lipase; Complete Time: 14:53 EDMS 11/05 16:02 Interpretation: Abnormal: LIP 989. cp 11/05 14:57 Order name: COVID-19 : Document "Date of Symptom Onset" if Symptomatic. sv 11/05 16:30 Order name: CORONAVIRUS EDMS 11/05 16:33 Order name: ABG Arterial Blood Gas EDMS 11/05 17:27 Order name: SARS-COV-2 RT PCR EDMS 11/05 19:14 Order name: Glucose, Ancillary Testing EDMS 11/05 21:14 Order name: Glucose, Ancillary Testing EDMS 11/06 05:31 Order name: CBC with Automated Diff EDMS 11/06 05:42 Order name: Comprehensive Metabolic Panel EDMS 11/06 08:51 Order name: Glucose, Ancillary Testing EDMS 11/06 12:59 Order name: Glucose, Ancillary Testing EDMS 11/06 17:35 Order name: Glucose, Ancillary Testing EDMS 11/06 21:38 Order name: Glucose, Ancillary Testing EDMS 11/07 05:42 Order name: CBC with Automated Diff EDMS 11/07 06:15 Order name: Comprehensive Metabolic Panel EDPA 11/07 06:15 Order name: Phosphorus EDMS 11/07 06:15 Order name: NT PRO-BNP EDMS 11/05 13:44 Order name: IV Saline Lock; Complete Time: 13:53 cp 11/05 13:44 Order name: Labs collected and sent; Complete Time: 13:53 cp 11/05 14:56 Order name: CT Abd/Pelvis - Without Contrast 11/05 15:46 Order name: CT; Complete Time: 16:00 EDMS 11/07 06:15 Order name: Magnesium EDMS 11/07 06:15 Order name: Lipase EDMS 11/07 10:44 Order name: Glucose, Ancillary Testing EDMS Administered Medications: 14:00 Drug: Pepcid (famotidine) 20 mg Route: IVP; Site: left forearm; jl7 14:00 Drug: NS 0.9% 250 ml Route: IV; Rate: 500 ml/hr; Site: left forearm; jl7 14:33 Follow up: Response: No adverse reaction; IV Status: Completed infusion; IV Intake: tw2 250ml 14:03 Drug: Phenergan (promethazine) 25 mg Route: IVP; Site: left forearm; jl7 14:07 Drug: Dilaudid (HYDROmorphone) 1 mg Route: IVP; Site: left forearm; jl7 15:32 Drug: Insulin Regular Human 10 units {Co-Signature: tw2 (Azucena Matthews RN).} Route: IVP; hb Site: left forearm; 15:37 Drug: Bentyl (dicyclomine) 20 mg Route: IM; Site: left deltoid; tw2 Disposition: 11/07 14:43 Co-signature as Attending Physician, Dinesh Stallworth MD. rn Disposition: 11/05/20 16:28 Hospitalization ordered by Ladarius Barth for Observation. Preliminary diagnosis are Diabetes mellitus due to underlying condition with hyperglycemia, Acute pancreatitis. - Bed requested for [facility] ER HOLD. - Status is Observation. mt - Condition is Stable. - Problem is new. - Symptoms have improved. Signatures: Dispatcher [employer] EDJanie Rosales RN RN sv Nieto, Roman, MD MD rn Page, Corey, PA PA cp Baxter, Heather, RN RN hb Wise, TABATHA Zeng RN tw2 Sophie Rubio RN RN jl7 Aster Russ hi Azucena Matthews RN tw2 Corrections: (The following items were deleted from the chart) 11/05 18:00 16:28 Hospitalization Ordered by Ladarius Barth MD for Observation. Preliminary sv diagnosis is Diabetes mellitus due to underlying condition with hyperglycemia; Acute pancreatitis. Bed requested for Telemetry/MedSurg (Inpatient). Status is Observation. Condition is Stable. Problem is new. Symptoms have improved. cp 11/07 13:58 11/05 18:00 11/05/2020 16:28 Hospitalization Ordered by Ladarius Barth MD for mt Observation. Preliminary diagnosis is Diabetes mellitus due to underlying condition with hyperglycemia; Acute pancreatitis. Bed requested for [facility] ER HOLD. Status is Observation. Condition is Stable. Problem is new. Symptoms have improved. sv
[2020-11-05] MEDS: INSULIN -REGULAR HUMAN 50 UNIT/0.5 ML ML SQ SCH ×2 (16:30→21:23)
[2020-11-05] MEDS ORDERED: HOME MED 1 EA UNK (Trazodone Hcl [Trazodone Hcl] 100 MG Tablet) PO PRN (16:48)
--- NOTE | 2020-11-05 16:58 | P.HP ---
Certification for Inpatient Patient admitted to: Inpatient With expected LOS: >2 Midnights Practitioner: I am a practitioner with admitting privileges, knowledge of patient current condition, hospital course, and medical plan of care. Services: Services provided to patient in accordance with Admission requirements found in Title 42 Section 412.3 of the Code of Federal Regulations Patient History Date of Service: 11/05/20 Reason for admission: Intractable nausea and vomiting and abdominal pain History of Present Illness: 32-year-old female with past medical history of end-stage renal disease on dialysis followed by Dr Morin , gastroparesis, CHF, diabetes, hypertension, history of liver failure, peripheral neuropathy, seizure disorder,GERD, history of gastroparesis brought to ER with intractable nausea and vomiting and abdominal pain. Symptoms started 2 days ago and has been progressively worsening and was brought to ER . denies any chest pain or shortness of breath No fever or chills No diarrhea No sick contacts Patient was assessed in the ER and was found to have intractable nausea and vomiting and dehydration and hyperglycemia along with acute pancreatitis and was admitted for further management. Allergies zolpidem tartrate [From Ambien] Allergy (Intermediate, Verified 10/17/16 23:08) Itching/Hives/Rash codeine [Codeine] Allergy (Verified 10/17/16 23:08) Hives fluphenazine enanthate [From Prolixin] Allergy (Verified 10/17/16 23:08) ARM NUMBNESS fluphenazine HCl [From Prolixin] Allergy (Verified 10/17/16 23:08) ARM NUMBNESS guaifenesin [From Prolex D] Allergy (Verified 10/17/16 23:08) Hives lisinopril Allergy (Verified 04/21/17 10:26) Anaphylaxis morphine Allergy (Verified 10/01/20 10:03) Itching Penicillins Allergy (Verified 10/17/16 23:08) Hives phenylephrine HCl [From Prolex D] Allergy (Verified 10/17/16 23:08) Hives nitrofurantoin Adverse Reaction (Verified 08/07/17 23:41) liver failure Home Medications: Calcium Acetate [Phoslo*] 2 cap PO TIDWM 03/05/20 Calcium Acetate [Phoslo*] 667 mg PO SNACKS 03/05/20 Divalproex Sodium [Divalproex Sodium ER] 500 mg PO BID 03/05/20 Linagliptin [Tradjenta] 5 mg PO DAILY 03/05/20 Sertraline [Zoloft*] 50 mg PO DAILY 03/05/20 Trazodone HCl 150 mg PO BEDTIME PRN PRN 03/05/20 Pantoprazole Sodium [Protonix] 1 tab PO DAILY 30 Days #30 tablet. 03/06/20 Gabapentin 1 tab PO BID 07/22/20 Metoprolol Succinate 25 mg PO DAILY 07/22/20 Pravastatin Sodium 1 tab PO DAILY 07/22/20 Doxazosin [Cardura*] 4 mg PO BEDTIME 09/30/20 Folic Acid/Vit B Complex and C [Dialyvite 800 Chewable Wafer] 1 tab PO DAILY 09/30/20 Furosemide [Lasix*] 40 mg PO BID 09/30/20 Metoclopramide [Reglan*] 5 ml PO TID 30 Days #45 ucup 10/01/20 Ondansetron [Zofran (Odt)*] 4 mg PO Q8H PRN 14 Days #30 tab 10/01/20 Ascorbate Calcium [Vitamin C] 500 mg PO TID #90 tablet 10/28/20 Sucralfate [Carafate*] 1 gm PO ACHS #90 tab 10/28/20 Zinc Sulfate [Zinc Sulfate*] 220 mg PO DAILY #30 cap 10/28/20 predniSONE [Deltasone] 20 mg PO BID #21 tab 10/28/20 - Past Medical/Surgical History Diabetic: Yes -: DM Type 2 -: Seizure disorder -: Chronic renal disease -: DM Gastroparesis -: DM Neuropathy -: Insomnia -: Obesity -: JAYLA -: Hypertension -: Post traumatic stress disorder -: Schizoaffective disorder -: CHF, diastolic -: I/D of the right elbow -: 2 previous C-sections -: Tubal ligation Psychosocial/ Personal History: She is , she has 2 children, she does not work. - Family History Mother -: Hypertension, Diabetes, Cancer, Other (see notes) Notes: hypothyroid, asthma, breast cancer Father -: Diabetes, Cancer Notes: - stomach/ lung/ prostate cancer, diabetes - Social History Alcohol use: No CD- Drugs: No Caffeine use: Yes Review of Systems 10-point ROS is otherwise unremarkable Gastrointestinal: Nausea, Vomiting, Abdominal Pain Physical Examination - Vital Signs Temperature: 98.4 F Blood Pressure: 166/96 Pulse: 76 Respirations: 18 - Physical Exam General: Alert, In no apparent distress, Oriented x3 HEENT: Atraumatic, Normocephalic Neck: Supple, 2+ carotid pulse no bruit Respiratory: Clear to auscultation bilaterally, Normal air movement Cardiovascular: Regular rate/rhythm, Normal S1 S2 Capillary refill: <2 Seconds Gastrointestinal: Non-distended, W/out hepatosplenomegaly, Tenderness Musculoskeletal: No clubbing, No swelling Integumentary: No rashes, No breakdown Neurological: Normal speech, Normal strength at 5/5 x4 extr Lymphatics: No axilla or inguinal lymphadenopathy - Studies Laboratory Data (last 24 hrs) 11/05/20 13:51: WBC 6.70 D, Hgb 10.3 L, Hct 31.4 L D, Plt Count 136 L D 11/05/20 13:51: Sodium 130 L, Potassium 3.8, BUN 22 H, Creatinine 4.36 H D, Glucose 650 H*, Magnesium 1.8, Total Bilirubin 0.9, AST 18, ALT 21, Alkaline Phosphatase 82, Lipase 989 H Assessment and Plan - Problems (Diagnosis) (1) Acute pancreatitis Current Visit: Yes Status: Acute Plan: Pain control IV fluid Monitor closely under telemetry Will trend lipase in a.m. Will get an ultrasound of the abdomen (2) Intractable nausea and vomiting Current Visit: No Status: Acute Plan: Will start on Reglan Start on PPI Monitor closely (3) Congestive heart failure, diastolic, left, w/preserved LV function, NYHA class 4 Onset Date: 08/09/17 Current Visit: No Status: Chronic Plan: Continue home medications and titrate as needed No exacerbation noted (4) ESRD (end stage renal disease) Current Visit: No Status: Chronic Plan: Consult Dr. Morin for hemodialysis support Monitor renal parameters (5) End stage renal disease on dialysis Current Visit: No Status: Chronic Plan: Electrolytes monitored and replaced accordingly Renal parameters monitored monitor under telemetry (6) History of peptic ulcer disease Current Visit: No Status: Chronic Plan: Continue PPI for now Will change to p.o. once tolerating p.o. (7) Hyperglycemia Onset Date: 10/14/16 Current Visit: No Status: Acute Plan: Uncontrolled diabetes Will start on insulin sliding scale Will add on basal insulin No significant anion gap will get an ABG monitor closely with IV hydration (8) Anemia in chronic kidney disease Onset Date: 08/09/17 Current Visit: No Status: Chronic Plan: Monitor CBC daily Transfuse p.r.n. if hemoglobin less than 7 Qualifiers: (9) Diabetes mellitus type II, uncontrolled Onset Date: 02/09/17 Current Visit: No Status: Chronic Qualifiers: Glycemic state: with hyperglycemia Qualified Code(s): E11.65 - Type 2 diabetes mellitus with hyperglycemia (10) Diabetic gastroparesis Onset Date: 10/19/16 Current Visit: No Status: Chronic Plan: Start on Reglan PPI Monitor closely (11) Hypertension Onset Date: 10/19/16 Current Visit: No Status: Chronic Qualifiers: (12) Seizure disorder Onset Date: 06/08/16 Current Visit: No Status: Chronic Plan: Continue home medications and titrate as needed Seizure precautions Discharge Plan: Home Plan to discharge in: 72 Hours - Advance Directives Does patient have a Living Will: Yes Does patient have a Durable POA for Healthcare: Yes Time Spent Managing Pts Care (In Minutes): 43
[2020-11-05] MEDS: CALCIUM ACETATE 667 MG TAB PO SCH (17:00)
[2020-11-05] MEDS ORDERED: METOCLOPRAMIDE 10 MG/2mL INJ IV PRN (17:09)
[2020-11-05] MEDS ORDERED: SODIUM CHLORIDE 0.9% 10ML INJ IV PRN (17:09)
[2020-11-05] MEDS ORDERED: GLUCAGON 1 MG/VIAL IM PRN (17:38)
[2020-11-05] MEDS ORDERED: D50W 25 GM/50 ML SYRINGE IV PRN (17:38)
[2020-11-05] MEDS ORDERED: TRAZODONE 150 MG TAB PO PRN (18:00)
[2020-11-05] MEDS: HYDROMORPHONE HCL 1 MG/ML INJ IV PRN (18:20)
[2020-11-05] MEDS: ONDANSETRON 4 MG/2 ML VIAL IV PRN (18:20)
[2020-11-05 18:45] VITALS: BMI 28.2
[2020-11-05] MEDS ORDERED: ONDANSETRON 4 MG/2 ML VIAL ONE (18:54)
[2020-11-05] MEDS ORDERED: NA CHLORIDE 0.9% 1,000 ML ONE (20:17)
[2020-11-05] MEDS ORDERED: predniSONE 20 MG TAB ONE (20:19)
[2020-11-05] MEDS ORDERED: PANTOPRAZOLE 40 MG INJ ONE (20:20)
[2020-11-05] MEDS ORDERED: SUCRALFATE 1 GM TABLET ONE (20:20)
[2020-11-05] MEDS ORDERED: ASCORBIC ACID 500 MG TABLET ONE (20:20)
[2020-11-05] MEDS: NA CHLORIDE 0.9% 1,000 ML IV SCH (20:31)
[2020-11-05] MEDS: DIVALPROEX ER 250 MG TAB PO SCH (20:32)
[2020-11-05] MEDS: PANTOPRAZOLE 40 MG INJ IVP SCH (20:32)
[2020-11-05] MEDS: GABAPENTIN 100 MG CAP PO SCH (20:32)
[2020-11-05] MEDS: DOXAZOSIN 4 MG TAB PO SCH (20:33)
[2020-11-05] MEDS: ASCORBIC ACID 500 MG TABLET PO SCH (20:34)
[2020-11-05] MEDS: predniSONE 20 MG TAB PO SCH (20:34)
[2020-11-05] MEDS: SUCRALFATE 1 GM TABLET PO SCH (20:34)
[2020-11-05] MEDS: ATORVASTATIN 10 MG TAB PO SCH (20:40)
[2020-11-05] MEDS ORDERED: ATORVASTATIN 10 MG TAB ONE (20:57)
[2020-11-05] MEDS: INSULIN GLARGINE 100 UNITS/ML SQ SCH ×2 (21:00→21:21)
[2020-11-05] MEDS ORDERED: HOME MED 1 EA UNK (Divalproex Sodium [Divalproex Sodium Er] 500 MG Tab.Er.24h) PO SCH (21:00)
[2020-11-05] MEDS ORDERED: INSULIN GLARGINE 100 UNITS/ML SQ ONE (21:39)
[2020-11-06] MEDS: NA CHLORIDE 0.9% 1,000 ML IV SCH (03:00)
[2020-11-06 05:29] LABS: Absolute Lymphocytes (CBC) 0.5 K/uL (0.7-4.9); Basophils % 0.3 % (0-1.3); Hematocrit 26.5 % (36.0-45.0); MPV 11.8 fL (7.6-11.3)
[2020-11-06 05:41] LABS: Albumin 2.5 g/dL (3.4-5.0); Bilirubin Total 0.6 mg/dL (0.2-1.0); Potassium 3.8 mmol/L (3.5-5.1); Protein, Total 5.9 g/dL (6.4-8.2)
[2020-11-06] MEDS: METOPROLOL XL 50 MG TAB PO SCH (06:41)
[2020-11-06] MEDS ORDERED: METOPROLOL XL 50 MG TAB PO ONE (06:58)
[2020-11-06] MEDS: INSULIN -REGULAR HUMAN 50 UNIT/0.5 ML ML SQ SCH ×4 (07:30→21:00)
[2020-11-06] MEDS: SUCRALFATE 1 GM TABLET PO SCH ×4 (07:30→21:20)
[2020-11-06] MEDS ORDERED: ZINC SULFATE 220 MG CAP ONE (07:58)
[2020-11-06] MEDS ORDERED: SUCRALFATE 1 GM TABLET ONE ×4 (07:59→21:31)
[2020-11-06] MEDS ORDERED: DIVALPROEX DR 250 MG TAB PO ONE (07:59)
[2020-11-06] MEDS ORDERED: ASCORBIC ACID 500 MG TABLET ONE ×3 (07:59→21:31)
[2020-11-06] MEDS ORDERED: PANTOPRAZOLE 40 MG INJ ONE ×2 (07:59→21:31)
[2020-11-06] MEDS: CALCIUM ACETATE 667 MG TAB PO SCH ×3 (08:00→17:00)
[2020-11-06] MEDS: SERTRALINE HCL 50 MG TAB PO SCH (09:00)
[2020-11-06] MEDS ORDERED: Folic Acid/Vit B Complex And C [Dialyvite 800 Chewable Wafer] 800 MCG T PO SCH (09:00)
[2020-11-06] MEDS: DIVALPROEX ER 250 MG TAB PO SCH ×2 (09:00→21:20)
[2020-11-06] MEDS ORDERED: HOME MED 1 EA UNK (Pravastatin Sodium [Pravastatin Sodium] 40 MG Tablet) PO SCH (09:00)
[2020-11-06] MEDS: GABAPENTIN 100 MG CAP PO SCH ×2 (09:00→21:20)
[2020-11-06] MEDS: ZINC SULFATE 220 MG CAP PO SCH (09:00)
[2020-11-06] MEDS: INSULIN GLARGINE 100 UNITS/ML SQ SCH ×2 (09:00→21:22)
[2020-11-06] MEDS: ASCORBIC ACID 500 MG TABLET PO SCH ×3 (09:00→21:20)
[2020-11-06] MEDS: predniSONE 20 MG TAB PO SCH ×2 (09:00→21:20)
[2020-11-06] MEDS: PANTOPRAZOLE 40 MG INJ IVP SCH ×2 (09:00→21:23)
[2020-11-06] MEDS ORDERED: INSULIN -REGULAR HUMAN 50 UNIT/0.5 ML ML ONE ×2 (09:06→17:49)
[2020-11-06] MEDS ORDERED: predniSONE 20 MG TAB ONE ×2 (09:07→21:31)
[2020-11-06] MEDS ORDERED: INSULIN GLARGINE 100 UNITS/ML SQ ONE ×2 (09:13→21:30)
[2020-11-06] MEDS ORDERED: HYDROMORPHONE HCL 1 MG/ML INJ ONE ×3 (09:13→21:36)
[2020-11-06] MEDS ORDERED: cloNIDine HCL 0.1 MG TAB PO ONE (12:36)
[2020-11-06] MEDS ORDERED: cloNIDine HCL 0.1 MG TAB ONE (12:48)
--- NOTE | 2020-11-06 14:51 | P.PN ---
Subjective Date of Service: 11/06/20 Pain is improved. Still having some nausea. Continue with current plan of care at this time. Advanced diet to a clear liquid/renal diet in the morning Review of Systems 10-point ROS is otherwise unremarkable Physical Examination - Vital Signs Temperature: 97.7 F Blood Pressure: 181/86 Pulse: 74 Respirations: 19 Pulse Ox (%): 98 - Physical Exam General: Alert, In no apparent distress, Oriented x3 Respiratory: Clear to auscultation bilaterally, Normal air movement Cardiovascular: Regular rate/rhythm, Normal S1 S2, No murmurs Gastrointestinal: Normal bowel sounds, Non-distended, No rebound, No guarding, Tenderness Musculoskeletal: No clubbing, No swelling, No tenderness Neurological: Sensation intact, Cranial nerves 3-12 intact - Studies Medications List Reviewed: Yes Assessment & Plan - Problems (Diagnosis) (1) Acute pancreatitis Current Visit: Yes Status: Acute (2) Diabetic gastroparesis Onset Date: 10/19/16 Current Visit: No Status: Chronic (3) Hypertension Onset Date: 10/19/16 Current Visit: No Status: Chronic Qualifiers: (4) JAYLA (obstructive sleep apnea) Onset Date: 02/09/17 Current Visit: No Status: Chronic (5) Psychotic depression Current Visit: No Status: Chronic (6) Schizoaffective disorder Onset Date: 06/08/16 Current Visit: No Status: Chronic Qualifiers: Schizoaffective disorder type: unspecified (7) Seizure disorder Onset Date: 06/08/16 Current Visit: No Status: Chronic (8) Tobacco abuse Onset Date: 06/08/16 Current Visit: No Status: Chronic - Plan 1. Continue with monitoring lipase 2. Promotility agent-Reglan scheduled every 6 hr 3. Continue with pain control 4. NPO 5. Nephrology consultation for hemodialysis 6. Serial H&H, and we will monitor CBC, BMP, LFTs and lipase along with electrolytes. 7. GI and DVT prophylaxis Discharge Plan: Home Plan to discharge in: Greater than 2 days - Advance Directives Does patient have a Living Will: Yes Does patient have a Durable POA for Healthcare: Yes - Code Status/Comfort Care Code Status Assessed: Yes Code Status: Full Code Critical Care: No Time Spent Managing PTS Care (In Minutes): 35
[2020-11-06] MEDS: HYDROMORPHONE HCL 1 MG/ML INJ IV PRN ×2 (15:57→21:18)
[2020-11-06] MEDS: ONDANSETRON 4 MG/2 ML VIAL IV PRN (21:18)
[2020-11-06] MEDS: METOCLOPRAMIDE 10MG/10ML UCUP PO SCH ×2 (21:20→23:28)
[2020-11-06] MEDS: ATORVASTATIN 10 MG TAB PO SCH (21:20)
[2020-11-06] MEDS: DOXAZOSIN 4 MG TAB PO SCH (21:20)
--- NOTE | 2020-11-06 21:28 | P.CNS ---
Date of Consult: 11/06/20 Reason for Consult: ESRD Requesting Physician: Jose De Jesus Velásquez Chief Complaint: Intractable nausea and vomiting and abdominal pain History of Present Illness: 32-year-old female with past medical history of end-stage renal disease on dialysis followed by Dr Morin , gastroparesis, CHF, diabetes, hypertension, history of liver failure, peripheral neuropathy, seizure disorder,GERD, history of gastroparesis brought to ER with intractable nausea and vomiting and abdominal pain. Symptoms started 2 days ago and has been progressively worsening and was brought to ER . denies any chest pain or shortness of breath. 13:50 This 40 yrs old Female presents to ER via EMS with complaints of cp Nausea/Vomiting, Abdominal Pain. 13:50 The patient presents to the emergency department with nausea, with "dry heaves", cp vomiting, that is continuous, described as bilious, abdominal pain, of the abdomen diffusely. Onset: The symptoms/episode began/occurred this morning. Possible causes: flare up of bowel problem, gastroparesis. Associated signs and symptoms: Pertinent negatives: diarrhea, fever, GI bleeding. Severity of symptoms: in the emergency department the symptoms are unchanged despite home interventions. Allergies zolpidem tartrate [From Ambien] Allergy (Intermediate, Verified 10/17/16 23:08) Itching/Hives/Rash codeine [Codeine] Allergy (Verified 10/17/16 23:08) Hives fluphenazine enanthate [From Prolixin] Allergy (Verified 10/17/16 23:08) ARM NUMBNESS fluphenazine HCl [From Prolixin] Allergy (Verified 10/17/16 23:08) ARM NUMBNESS guaifenesin [From Prolex D] Allergy (Verified 10/17/16 23:08) Hives lisinopril Allergy (Verified 04/21/17 10:26) Anaphylaxis morphine Allergy (Verified 10/01/20 10:03) Itching Penicillins Allergy (Verified 10/17/16 23:08) Hives phenylephrine HCl [From Prolex D] Allergy (Verified 10/17/16 23:08) Hives nitrofurantoin Adverse Reaction (Verified 08/07/17 23:41) liver failure Home medications list reviewed: Yes Home Medications: Calcium Acetate [Phoslo*] 2 cap PO TIDWM 03/05/20 Calcium Acetate [Phoslo*] 667 mg PO SNACKS 03/05/20 Divalproex Sodium [Divalproex Sodium ER] 500 mg PO BID 03/05/20 Linagliptin [Tradjenta] 5 mg PO DAILY 03/05/20 Sertraline [Zoloft*] 50 mg PO DAILY 03/05/20 Trazodone HCl 150 mg PO BEDTIME PRN PRN 03/05/20 Pantoprazole Sodium [Protonix] 1 tab PO DAILY 30 Days #30 tablet. 03/06/20 Gabapentin 1 tab PO BID 07/22/20 Metoprolol Succinate 25 mg PO DAILY 07/22/20 Pravastatin Sodium 1 tab PO DAILY 07/22/20 Doxazosin [Cardura*] 4 mg PO BEDTIME 09/30/20 Folic Acid/Vit B Complex and C [Dialyvite 800 Chewable Wafer] 1 tab PO DAILY 09/30/20 Furosemide [Lasix*] 40 mg PO BID 09/30/20 Metoclopramide [Reglan*] 5 ml PO TID 30 Days #45 ucup 10/01/20 Ondansetron [Zofran (Odt)*] 4 mg PO Q8H PRN 14 Days #30 tab 10/01/20 Ascorbate Calcium [Vitamin C] 500 mg PO TID #90 tablet 10/28/20 Sucralfate [Carafate*] 1 gm PO ACHS #90 tab 10/28/20 Zinc Sulfate [Zinc Sulfate*] 220 mg PO DAILY #30 cap 10/28/20 predniSONE [Deltasone] 20 mg PO BID #21 tab 10/28/20 - Past Medical/Surgical History Diabetic: Yes -: DM Type 2 -: Seizure disorder -: Chronic renal disease -: DM Gastroparesis -: DM Neuropathy -: Insomnia -: Obesity -: JAYLA -: Hypertension -: Post traumatic stress disorder -: Schizoaffective disorder -: CHF, diastolic -: I/D of the right elbow -: 2 previous C-sections -: Tubal ligation Psychosocial/ Personal History: She is , she has 2 children, she does not work. - Family History Mother Medical History: Hypertension, Diabetes, Cancer, Other (see notes) Notes: hypothyroid, asthma, breast cancer Father Medical History: Diabetes, Cancer Notes: - stomach/ lung/ prostate cancer, diabetes - Social History Smoking Status: Current every day smoker Alcohol use: No CD- Drugs: No Caffeine use: Yes Review of Systems 10-point ROS is otherwise unremarkable General: Weakness, Malaise Respiratory: SOB with Excertion Neurological: Weakness Physical Examination Temp Pulse Resp BP Pulse Ox 98.2 F 57 14 185/80 H 100 11/06/20 20:00 11/06/20 20:00 11/06/20 20:00 11/06/20 20:00 11/06/20 20:00 General: In no apparent distress, Oriented x3, Cooperative HEENT: Atraumatic, Mucous membr. moist/pink Neck: Supple Respiratory: Diminished Cardiovascular: Regular rate/rhythm, No rubs, Edema Gastrointestinal: Soft and benign, Non-distended Musculoskeletal: No clubbing, No contractures Integumentary: No rashes, No cyanosis Neurological: Normal speech Blood work reviewed in the chart. Imagings Data: EXAM DESCRIPTION: CT - Abdomen Pelvis Wo Contrast - 11/05/2020 3:17 pm CLINICAL HISTORY: Abdominal pain COMPARISON: October 26, 2020 TECHNIQUE: Computed axial tomography of the abdomen and pelvis was obtained. IV and oral contrast were not requested. All CT scans are performed using dose optimization technique as appropriate and may include automated exposure control or mA/KV adjustment according to patient size. FINDINGS: The evaluation of solid organs, vessels and bowel is limited secondary to the lack of contrast administration. Mild bibasilar ground-glass opacities within the lungs. Spleen is upper limits normal size. The liver, pancreas and adrenals grossly normal No hydronephrosis. A renal mass is not seen. Cholelithiasis. Gallbladder wall appears mildly thickened. There is no evidence of diverticulitis. Vascular calcifications. Air within the bladder IMPRESSION: Cholelithiasis. Thickened gallbladder wall may indicate cholecys titis or be related to hypoalbuminemia. Air within the bladder can be normal if the patient has had recent instrumentation. Infection can also result in this appearance. Conclusions/Impression: ESRD -Acute HD ordered Hyponatremia HTN with CKD/ CHF -Continue Metoprolol and Doxazosin Diastolic CHF, chronic -Low sodium diet DM II with CKD, Polyneuropathy and Gastroparesis -Continue Lantus -RISS -Reglan as ordered Moderate malnutrition -Encourage nutrition -Start Nepro Anemia in CKD -Give Retacrit DUSTIN/ Secondary HyperPTH -Continue Phoslo -Start Vitamin D Thank you kindly for the consultation.
[2020-11-06] MEDS ORDERED: NEPRO SHAKE 237 ML CAN PO SCH (21:30)
[2020-11-06] MEDS ORDERED: ONDANSETRON 4 MG/2 ML VIAL ONE (21:30)
[2020-11-06] MEDS ORDERED: ATORVASTATIN 20 MG TAB ONE (21:31)
[2020-11-07] MEDS ORDERED: ACETAMINOPHEN 500 MG TAB ONE (01:13)
[2020-11-07] MEDS ORDERED: ONDANSETRON 4 MG/2 ML VIAL ONE (04:41)
[2020-11-07] MEDS ORDERED: HYDROMORPHONE HCL 1 MG/ML INJ ONE ×2 (04:41→10:21)
[2020-11-07] MEDS: HYDROMORPHONE HCL 1 MG/ML INJ IV PRN ×2 (04:47→10:16)
[2020-11-07] MEDS: METOCLOPRAMIDE 10MG/10ML UCUP PO SCH ×2 (04:47→11:08)
[2020-11-07] MEDS: ONDANSETRON 4 MG/2 ML VIAL IV PRN (04:48)
[2020-11-07 05:37] LABS: Absolute Lymphocytes (CBC) 0.5 K/uL (0.7-4.9); Basophils % 0.6 % (0-1.3); Hematocrit 28.9 % (36.0-45.0); MPV 12.4 fL (7.6-11.3); RBC Red Blood Cell Count 3.18 M/uL (3.86-4.86)
[2020-11-07 06:14] LABS: ALT/SGPT 15 U/L (12-78); AST/SGOT 12 U/L (15-37); Albumin 2.6 g/dL (3.4-5.0); Alkaline Phosphatase 45 U/L (45-117); BUN Blood Urea Nitrogen 20 mg/dL (7-18); Bicarbonate 26 mmol/L (21-32); Bilirubin Total 0.5 mg/dL (0.2-1.0); Glucose Level 340 mg/dL (74-106); Lipase 134 U/L (73-393); NT PRO-BNP > 175000 pg/mL (<125); Potassium 4.8 mmol/L (3.5-5.1); Protein, Total 6.1 g/dL (6.4-8.2); Sodium Level 133 mmol/L (136-145)
[2020-11-07] MEDS: INSULIN -REGULAR HUMAN 50 UNIT/0.5 ML ML SQ SCH ×2 (06:35→10:29)
[2020-11-07] MEDS ORDERED: INSULIN -REGULAR HUMAN 50 UNIT/0.5 ML ML ONE ×2 (06:44→10:50)
[2020-11-07] MEDS: SUCRALFATE 1 GM TABLET PO SCH ×2 (07:30→11:07)
[2020-11-07] MEDS: CALCIUM ACETATE 667 MG TAB PO SCH (08:00)
[2020-11-07] MEDS ORDERED: MULTIVITAMINS,THERAPEUT 1 TAB PO SCH (09:00)
[2020-11-07] MEDS ORDERED: CALCITROL 0.25 MCG CAP PO SCH (09:00)
[2020-11-07] MEDS ORDERED: VITAMIN D 5,000 UNIT CAP PO SCH (09:00)
[2020-11-07] MEDS: ASCORBIC ACID 500 MG TABLET PO SCH (09:00)
[2020-11-07] MEDS: GABAPENTIN 100 MG CAP PO SCH (09:00)
[2020-11-07] MEDS: predniSONE 20 MG TAB PO SCH (09:00)
[2020-11-07] MEDS: ZINC SULFATE 220 MG CAP PO SCH (09:00)
[2020-11-07] MEDS ORDERED: EPOETIN ALFA 10,000 UNIT/ML VIAL SQ SCH (09:00)
[2020-11-07] MEDS: PANTOPRAZOLE 40 MG INJ IVP SCH (09:00)
[2020-11-07] MEDS: SERTRALINE HCL 50 MG TAB PO SCH (09:00)
[2020-11-07 10:00] VITALS: O2SAT 99
[2020-11-07] MEDS ORDERED: ASCORBIC ACID 500 MG TABLET ONE (10:12)
[2020-11-07] MEDS ORDERED: ZINC SULFATE 220 MG CAP ONE (10:12)
[2020-11-07] MEDS ORDERED: predniSONE 20 MG TAB ONE (10:12)
[2020-11-07] MEDS ORDERED: METOPROLOL XL 50 MG TAB PO ONE (10:12)
[2020-11-07] MEDS ORDERED: INSULIN GLARGINE 100 UNITS/ML SQ ONE (10:12)
[2020-11-07] MEDS ORDERED: VITAMIN D 1000 UNIT TAB ONE (10:12)
[2020-11-07] MEDS ORDERED: SUCRALFATE 1 GM TABLET ONE (10:13)
[2020-11-07] MEDS ORDERED: PANTOPRAZOLE 40 MG INJ ONE (10:13)
[2020-11-07] MEDS ORDERED: DIVALPROEX DR 250 MG TAB PO ONE (10:13)
[2020-11-07] MEDS: INSULIN GLARGINE 100 UNITS/ML SQ SCH (10:14)
[2020-11-07] MEDS: METOPROLOL XL 50 MG TAB PO SCH (10:14)
[2020-11-07] MEDS: DIVALPROEX ER 250 MG TAB PO SCH (10:14)
[2020-11-07] MEDS ORDERED: HYDRALAZINE HCL 20 MG/ML VIAL IV ONE (10:56)
[2020-11-07] MEDS ORDERED: cloNIDine HCL 0.1 MG TAB PO ONE (10:56)
--- NOTE | 2020-11-07 21:01 | P.PN ---
Date of Service: 11/07/20 Vital Signs Temp Pulse Resp BP Pulse Ox 98.2 F 52 18 116/75 97 11/06/20 20:00 11/07/20 12:00 11/07/20 12:00 11/07/20 12:00 11/07/20 12:00 Assessment/ Plan: Nephrology Feeling much better. CPS improving. No acute events overnight. Vitals, medications, blood work and imaging reviewed in the chart. General: In no apparent distress, Oriented x3, Cooperative HEENT: Atraumatic, Mucous membr. moist/pink Neck: Supple Respiratory: Diminished Cardiovascular: Regular rate/rhythm, No rubs, Edema Gastrointestinal: Soft and benign, Non-distended Musculoskeletal: No clubbing, No contractures Integumentary: No rashes, No cyanosis Neurological: Normal speech Blood work reviewed in the chart. Imagings Data: EXAM DESCRIPTION: CT - Abdomen Pelvis Wo Contrast - 11/05/2020 3:17 pm CLINICAL HISTORY: Abdominal pain COMPARISON: October 26, 2020 TECHNIQUE: Computed axial tomography of the abdomen and pelvis was obtained. IV and oral contrast were not requested. All CT scans are performed using dose optimization technique as appropriate and may include automated exposure control or mA/KV adjustment according to patient size. FINDINGS: The evaluation of solid organs, vessels and bowel is limited secondary to the lack of contrast administration. Mild bibasilar ground-glass opacities within the lungs. Spleen is upper limits normal size. The liver, pancreas and adrenals grossly normal No hydronephrosis. A renal mass is not seen. Cholelithiasis. Gallbladder wall appears mildly thickened. There is no evidence of diverticulitis. Vascular calcifications. Air within the bladder IMPRESSION: Cholelithiasis. Thickened gallbladder wall may indicate cholecystitis or be related to hypoalbuminemia. Air within the bladder can be normal if the patient has had recent instrumentation. Infection can also result in this appearance. Conclusions/Impression: ESRD -Acute HD TIW Hyponatremia HTN with CKD/ CHF -Continue Metoprolol and Doxazosin Diastolic CHF, chronic -Low sodium diet DM II with CKD, Polyneuropathy and Gastroparesis -Continue Lantus -RISS -Reglan as ordered Moderate malnutrition -Encourage nutrition -Continue Nepro Anemia in CKD -Give Retacrit PRN DUSTIN/ Secondary HyperPTH -Continue Phoslo -Continue Vitamin D
[2020-11-25 01:50] VITALS: BP 181/86; TEMP 97.7
--- NOTE | 2020-11-25 01:52 | P.DS ---
Discharge Date: 11/07/20 Disposition: ROUTINE DISCHARGE Discharge Condition: GOOD Reason for Admission: Intractable nausea and vomiting and abdominal pain - Problems (1) Acute pancreatitis Status: Acute (2) Diabetic gastroparesis Onset Date: 10/19/16 Status: Chronic (3) Hypertension Onset Date: 10/19/16 Status: Chronic Qualifiers: (4) JAYLA (obstructive sleep apnea) Onset Date: 02/09/17 Status: Chronic (5) Psychotic depression Status: Chronic (6) Schizoaffective disorder Onset Date: 06/08/16 Status: Chronic Qualifiers: Schizoaffective disorder type: unspecified (7) Seizure disorder Onset Date: 06/08/16 Status: Chronic (8) Tobacco abuse Onset Date: 06/08/16 Status: Chronic Brief History of Present Illness: 32-year-old female with past medical history of end-stage renal disease on dialysis followed by Dr Morin , gastroparesis, CHF, diabetes, hypertension, history of liver failure, peripheral neuropathy, seizure disorder,GERD, history of gastroparesis brought to ER with intractable nausea and vomiting and abdominal pain. Symptoms started 2 days ago and has been progressively worsening and was brought to ER . denies any chest pain or shortness of breath No fever or chills No diarrhea No sick contacts Patient was assessed in the ER and was found to have intractable nausea and vomiting and dehydration and hyperglycemia along with acute pancreatitis and was admitted for further management. Hospital Course: Patient is clinically improving. Patient denies any other complaints. Patient is tolerating diet. Patient's clinical symptoms have improved. At this time, patient is stable for discharge with outpatient follow-up. 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 Would advise patient to stay on a full liquid diet with the next 48-72 hrs. Patient came proceed or advance diet after that. Vital Signs/Physical Exam: Temp Pulse Resp BP Pulse Ox 97.7 F 74 19 181/86 H 98 11/25/20 01:49 11/25/20 01:49 11/25/20 01:49 11/25/20 01:49 11/25/20 01:49 General: Alert, In no apparent distress, Oriented x3 Laboratory Data at Discharge: WBC 5.90 K/uL (4.3-10.9) 11/07/20 05:05 Hgb 9.2 g/dL (12.0-15.0) L 11/07/20 05:05 Hct 28.9 % (36.0-45.0) L 11/07/20 05:05 Plt Count 153 K/uL (152-406) 11/07/20 05:05 Sodium 133 mmol/L (136-145) L 11/07/20 05:05 Potassium 4.8 mmol/L (3.5-5.1) 11/07/20 05:05 BUN 20 mg/dL (7-18) H 11/07/20 05:05 Creatinine 3.42 mg/dL (0.55-1.3) H D 11/07/20 05:05 Glucose 340 mg/dL (74-106) H 11/07/20 05:05 Phosphorus 3.0 mg/dL (2.5-4.9) 11/07/20 05:05 Magnesium 2.0 mg/dL (1.8-2.4) 11/07/20 05:05 Total Bilirubin 0.5 mg/dL (0.2-1.0) 11/07/20 05:05 AST 12 U/L (15-37) L 11/07/20 05:05 ALT 15 U/L (12-78) 11/07/20 05:05 Alkaline Phosphatase 45 U/L (45-117) 11/07/20 05:05 Lipase 134 U/L (73-393) 11/07/20 05:05 Home Medications: Calcium Acetate [Phoslo*] 2 cap PO TIDWM 03/05/20 Calcium Acetate [Phoslo*] 667 mg PO SNACKS 03/05/20 Divalproex Sodium [Divalproex Sodium ER] 500 mg PO BID 03/05/20 Linagliptin [Tradjenta] 5 mg PO DAILY 03/05/20 Sertraline [Zoloft*] 50 mg PO DAILY 03/05/20 Trazodone HCl 150 mg PO BEDTIME PRN PRN 03/05/20 Pantoprazole Sodium [Protonix] 1 tab PO DAILY 30 Days #30 tablet. 03/06/20 Gabapentin 1 tab PO BID 07/22/20 Metoprolol Succinate 25 mg PO DAILY 07/22/20 Pravastatin Sodium 1 tab PO DAILY 07/22/20 Doxazosin [Cardura*] 4 mg PO BEDTIME 09/30/20 Folic Acid/Vit B Complex and C [Dialyvite 800 Chewable Wafer] 1 tab PO DAILY 09/30/20 Furosemide [Lasix*] 40 mg PO BID 09/30/20 Metoclopramide [Reglan*] 5 ml PO TID 30 Days #45 ucup 10/01/20 Ondansetron [Zofran (Odt)*] 4 mg PO Q8H PRN 14 Days #30 tab 10/01/20 Ascorbate Calcium [Vitamin C] 500 mg PO TID #90 tablet 10/28/20 Sucralfate [Carafate*] 1 gm PO ACHS #90 tab 10/28/20 Zinc Sulfate [Zinc Sulfate*] 220 mg PO DAILY #30 cap 10/28/20 predniSONE [Prednisone*] 20 mg PO BID #21 tab 10/28/20 Calcitrol [Rocaltrol*] 0.5 mcg PO DAILY #30 cap 11/07/20 Hydralazine HCl 25 mg PO TID #90 tablet 11/07/20 Hydrocodone 10/APAP 325 [[place] 10/325] 1 tab PO Q12H PRN #40 tab 11/07/20 Nepro Shake [Nepro*] 237 ml PO TID #60 can 11/07/20 New Medications: Hydralazine HCl 25 mg PO TID #90 tablet Nepro Shake [Nepro*] 237 ml PO TID #60 can Hydrocodone 10/APAP 325 [[place] 10/325] 1 tab PO Q12H PRN #40 tab PRN Reason: Pain Calcitrol [Rocaltrol*] 0.5 mcg PO DAILY #30 cap Physician Discharge Instructions: OK TO DC IV AND DC HOME FOLLOW-UP WITH PRIMARY CARE PROVIDER IN 1-2 WEEKS FOLLOW-UP WITH Nephrology for hemodialysis Follow-up with Gastroenterology in 2-4 weeks RETURN TO THE ER IF symptoms worsen CALL or TEXT DR. BROOKS AT [phone] IF ANY QUESTIONS REGARDING HOSPITAL STAY. PLEASE CALL THE FLOOR AT [phone] IF ANY MEDICATION OR NURSING QUESTIONS. Diet: Renal Activity: Fall precautions Followup: NONE,NONE [Primary Care Provider] - Time spent managing pt's care (in minutes): 35
== END 2020-11-07 12:58 | disposition home or self-care (01) | DRG 438 ==
LOC: ER 13:39 → ERHOLD 16:22
PROVIDERS: ADMIT Family Medicine; ATTEND Hospitalist
PROC: 5A1D70Z Performance of Urinary Filtration, Intermittent, Less than 6 Hours Per Day (ICD-10-PCS; principal; 2020-11-05)
DX: K85.90 Acute pancreatitis without necrosis or infection, unspecified (principal); N18.6 End stage renal disease; U07.1 COVID-19; I50.32 Chronic diastolic (congestive) heart failure; I13.2 Hypertensive heart and chronic kidney disease with heart failure and with stage 5 chronic kidney disease, or end stage renal disease; F32.3 Major depressive disorder, single episode, severe with psychotic features; E87.1 Hypo-osmolality and hyponatremia; E44.0 Moderate protein-calorie malnutrition; N25.81 Secondary hyperparathyroidism of renal origin; E11.22 Type 2 diabetes mellitus with diabetic chronic kidney disease; E11.65 Type 2 diabetes mellitus with hyperglycemia; E11.42 Type 2 diabetes mellitus with diabetic polyneuropathy; E11.43 Type 2 diabetes mellitus with diabetic autonomic (poly)neuropathy; K31.84 Gastroparesis; E86.0 Dehydration; D63.1 Anemia in chronic kidney disease; G40.909 Epilepsy, unspecified, not intractable, without status epilepticus; N25.0 Renal osteodystrophy; G47.33 Obstructive sleep apnea (adult) (pediatric); K21.9 Gastro-esophageal reflux disease without esophagitis; Z88.5 Allergy status to narcotic agent; Z88.0 Allergy status to penicillin; Z88.8 Allergy status to other drugs, medicaments and biological substances; Z99.2 Dependence on renal dialysis; Z79.52 Long term (current) use of systemic steroids; Z79.899 Other long term (current) drug therapy; Z98.51 Tubal ligation status; Z68.28 Body mass index [BMI] 28.0-28.9, adult
CPT/HCPCS: 36415; 74176; 80048; 80053; 80076; 82010; 82805; 82947; 83690; 83735; 83880; 84100; 85025; 90935; 96365; 96372; 96375; 99285; C9113; J0500; J1170; J1815; J2405; J2550; J7030; J7050; J7512; Q5105; U0003

== ENCOUNTER 2020-12-12 15:04 | Observation (INO) | payer OTHER ==
--- OUTSIDE RECORDS SUMMARY | 2020-12-12 15:19 | XMS REPORT | Continuity of Care Document ---
:1980 Author Organization [facility] t Address [address] [place] [address] Care Team Providers Name Role Phone Sharpless Primary Care Physician Marshall BURNS, K.H. Attending Clinician Doctor Unassigned, Name Attending Clinician Unavailable Carlos BURNS Attending Clinician Manuel Sanchez DO [...] oria EVALUATION 07-12 09:39:00 l NEW 00:00: [place] EVALUATION 00 Active 07/12/[address] [facility] [place] [place] Liver Liver Disease Active [facility] failure, failure, 7[facility] acute acute 00:00: Medical 00 [place] SANJUANA (acute SANJUANA (acute Disease Active [facility] kidney kidney 7-16 [facility] injury) injury) 00:00: Medical 00 [place] CKD CKD Disease Active [facility] (chronic (chronic 7-16 [facility] kidney kidney 00:00: Medical disease) disease) 00 Center Acute Acute Disease Active [facility] encephalop encephalop 7-16 Pati kes - athy athy 00:00: Medical 00 [place] Ulcer of Ulcer of Disease Active [facility] toe of toe of 16 [facility] - left foot left foot 00:00: Medi tawnya 00 [place] Peripheral Peripheral Disease Active [facility] neuropathy neuropathy 7-16 Pati kes - 00:00: Medical 00 [place] Hyperglyce Hyperglyce Disease Active [facility] 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 16 Pati kes - type 2 type 2 00:00: Medical diabetes diabetes 00 Center mellitus mellitus Gastropare Gastropare Disease Active [facility] sis due to sis due to 7-16 Pait kes - DM DM 00:00: Medical 00 [place] Cyclic Cyclic Disease Active [facility] vomiting vomiting 16 [facility] - syndrome syndrome 00:00: Medica l 00 Center Anxiety Anxiety Disease Active [facility] 7-16 [facility] - 00:[facility]: Medical 00 [place] Bipolar Bipolar Disease Active [facility] disorder disorder -16 [facility] - 00:00: Medical 00 [place] Hypertensi Hypertensi Disease Active [facility] ve ve -16 [facility] - emergency emergency 00:00: Medi tawnya 00 [place] CONGESTION Diagnosis Active 2016-07-24 Memoria AMD 2- 01:49:00 l DIARRHEA 00:00: [place] CONGESTION 00 AMD DIARRHEA Active 07/23/[address] [facility] [place] [place] ACUTE RESP Diagnosis Active 2016-09-09 Memoria FAILURE 07-23 09:11:00 l ACUTE 00:00: Vin RESP 00 FAILURE Active 07/23/[address] [facility] [place] [place] SOB/SWELLI Diagnosis Active 2015-062016-06-10 Memoria NG 08-11 15:48:00 l 00:00: [place] SOB/SWELLI 00 NG Active [address] [facility] [place] [place] CHF/RENAL Diagnosis Active 2015-062016-06-24 Memoria DISEASE 2- 15:35:00 l 00:00: [place] CHF/RENAL 00 DISEASE Active 06/10/[address] [facility] [place] [place] ABDOMINAL Diagnosis Active 2014-06-26 Memoria PAIN, 1- 05:44:00 l SEIZURES 00:00: Vin ABDOMINAL 00 PAIN, SEIZURES Active 06/26/[address] [facility] [place] [place] ABD PAIN Diagnosis Active 2012-062013-04-19 M emoria 0- 21:51:00 l ABD PAIN 19:00: Jake n 00 Active 04/14/2013 [facility] GASTROPERI Diagnosis Active 2012-09-13 Memoria SIS - 15:17:00 l 00:00: [place] GASTROPERI 00 SIS Active 08/02/[address] [facility] [place] [place] ABDOMINAL Diagnosis Active 2012-03-14 Memoria PAIN 03-14 16:56:00 l 14:00: [place] ABDOMINAL 00 PAIN Active 03/14/2012 [facility] NAUSEA, Diagnosis Active 2012-03-14 Me moria VOMITING 03-14 13:25:00 l NAUSEA, 08:00: [place] VOMITING 00 Active 03/14/2012 [facility] N/V Diagnosis Active 2011-12-08 Mem oria INABILITY 11-27 11:14:00 l TO N/V 00:00: Vin TOLERATE INABILITY 00 PO TO TOLERATE PO Active [address] [facility] [place] VOMITTING Diagnosis Active 2011-11-28 Memoria 11-27 16:28:00 l 00:00: [place] VOMITTING 00 Active 11/28/[address] [facility] [place] VOMITTING, Diagnosis Active 2011-09-18 Memoria HIGH BLOOD 09-17 09:45:00 l SUGAR 00:00: [place] VOMITTING, 00 HIGH BLOOD SUGAR Active 09/18/[address] [facility] [place] [place] MRSA Problem Active 2012-03-16 Memor ia - 09:11:30 l MRSA 00:00: Vin 00 Active 09/01/2011 Problem 03/16/2012 - Elbow [email or web address] emily added by Discern Expert. [facility] [place] [place] Methicilli Problem Active 2016-08-02 M emoria n 3-13 02:46:22 l resistant 00:00: Vin Staphyloco Methicilli 00 ccus n aureus resistant (organism) Staphyloco ccus aureus (organism) Active 09/01/2011 Problem 08/02/2016 09/01/11 - Elbow woundProbl em added by Discern Expert. [facility] VOMITING, Diagnosis Active 2011-09-01 Memoria BLOOD 08-30 03:19:00 l SUGAR 00:00: Vin READINGS VOMITING, 00 HIGH BLOOD SUGAR READINGS HIGH Active 08/31/[address] [facility] [place] ELBOW Diagnosis Active 2011-09-10 Mem oria ABSCESS/HY 08-30 16:26:00 l PERGLYCEMI ELBOW 00:00: Nidia nn A ABSCESS/HY 00 PERGLYCEMI A Active 08/31/[address] [facility] [place] [place] Hypokalemi Problem Active 2012-03-16 M emoria a 08-22 09:11:30 l 00:00: Vin Hypokalemi 00 a Active 08/23/2011 Problem 03/16/2012 [facility] DKA Diagnosis Active 2011-08-24 Mem oria - 11:27:00 l DKA 00:00: [place] 00 Active 08/19/[address] [facility] [place] [place] VOMITING Diagnosis Active 2011-08-19 M emoria - 16:21:00 l VOMITING 00:00: Jake n 00 Active 08/19/[address] [facility] [place] [place] Final: Problem 2016-08-02 Memor ia Acute 02:46:22 l respirator Final: Herm naeem y failure, Acute unspecifie respirator d whether y failure, with unspecifie hypoxia or d whether hypercapni with a hypoxia or hypercapni a 08/02/[address] [facility] [place] Hypoglycem Problem Inactiv 2013-04-22 Memoria ia e 04:46:33 l (disorder) Jake n Hypoglycem ia (disorder) Inactive Problem 04/22/2013 [facility] Hypoglycem Problem Inactiv 2012-03-16 Memoria ia e 09:11:30 l Vin Hypoglycem ia Inactive Problem 03/16/2012 [facility] Diabetes Problem Resolve 2016-08-02 Me moria mellitus d 02:46:22 l (disorder) Diabetes He rmann mellitus (disorder) Resolved Problem 08/02/[address] [facility] [place] [place] Gastropare Problem Resolve 2016-08-02 Memoria sis d 02:46:22 l (disorder) Jake n Gastropare sis (disorder) Resolved Problem 08/02/[address] [facility] [place] [place] Hypertensi Problem Resolve 2016-08-02 Memoria ve d 02:46:22 l disorder, Vin systemic Hypertensi arterial ve (disorder) disorder, systemic arterial (disorder) Resolved Problem 08/02/2016 [facility] Psychiatri Problem Resolve 2016-08-02 Memoria c d 02:46:22 l behavioral Jake n disability Psychiatri (finding) c behavioral disability (finding) Resolved Problem 08/02/[address] [facility] [place] [place] Seizure Problem Resolve 2016-08-02 Mem oria (finding) d 02:46:22 l Seizure Vin (finding) Resolved Problem 08/02/[address] [facility] [place] [place] Hypomagnes Problem Active 2013-04-22 M emoria emia 04:46:33 l [place] Hypomagnes emia Active Problem 04/22/2013 [facility] Hypertensi Problem Active 2012-03-16 M emoria on 09:11:30 l [place] Hypertensi on Active Problem 2 [facility] Nausea and Problem Active 2012-03-16 M emoria vomiting 09:11:30 l Nausea [place] and vomiting Active Problem 03/16/2012 [facility] DMI Diagnosis Active 2011-08-24 Mem oria KETOACD 11:27:00 l UNCONTROLD DMI Jake n KETOACD UNCONTROLD Active [facility] [place] [place] OTHER Diagnosis Active 2011-09-10 Mem oria GENERAL 16:26:00 l SYMPTOMS OTHER [place] GENERAL SYMPTOMS Active [facility] [place] HEART Diagnosis Active 2016-06-24 Mem oria FAILURE, 15:35:00 l UNSPECIFIE HEART Nidia nn D FAILURE, UNSPECIFIE D Active [facility] [place] [place] ACUTE Diagnosis Active 2016-09-09 Mem oria RESPIRATOR 09:11:00 l Y FAILURE, ACUTE Nidia nn UNSP W RESPIRATOR HYPOXI Y FAILURE, UNSP W HYPOXI Active [facility] [place] [place] Nausea and Problem Resolve 2016-08-022016-072016-08-02 Memoria vomiting d 6-10 02:46:22 02:46:22 l (disorder) Nausea 00:00: Herm naeem and 00 vomiting (disorder) Resolved 11/29/2011 Problem 08/02/2016 [facility] Hypokalemi Problem Resolve 2016-08-02 2016-08-02 Memoria a d 3-04 02:46:22 02:46:22 l (disorder) 00:00: Jake n Hypokalemi 00 a (disorder) Resolved 08/23/2011 Problem 08/02/2016 [facility] Disorder Problem Resolve 2016-08-02 2016-08-02 Memoria of d 3-04 02:46:22 02:46:22 l magnesium Disorder 00:00: Her braden metabolism of 00 (disorder) magnesium metabolism (disorder) Resolved 08/23/2011 Problem 08/02/[address] [facility] [place] [place] Hyperglyce Problem Resolve 2016-08-02 2016-08-02 Memoria maryam d 3- 02:46:22 02:46:22 l (disorder) 00:00: Jake n Hyperglyce 00 maryam (disorder) Resolved 08/20/2011 Problem 08/02/2016 [facility] Ketoacidos Problem Resolve 2016-08-02 2016-08-02 Memoria is in d 2- 02:46:22 02:46:22 l diabetes 00:00: Vin mellitus Ketoacidos 00 (disorder) is in diabetes mellitus (disorder) Resolved 08/19/2011 Problem 08/02/[address] [facility] [place] [place] DKA Problem Resolve 2013-04-22 2013-04-22 Memoria (diabetic d 2- 04:46:33 04:46:33 l ketoacidos DKA 00:00: Jake n es) (diabetic 00 ketoacidos es) Resolved 08/19/2011 Problem 04/22/2013 [facility] History of Past Illness Condition Condition Condition Status Onset Resolution Last Treating Co mments Source Name Details Category Date Date Treatment Clinician Date Discharge Problem 2014-06-28 2014-06-28 Memoria Diagnosis: 06-26 16:34:37 16:34:37 l Gastropare 06:00: Jake n sis Discharge 00 Diagnosis: Gastropare sis 06/26/2014 06/28/[address] [facility] [place] [place] Hyperglyce Problem Inactiv 2011-2012-03-16 2012-03-16 Memoria maryam e 3- 09:11:30 09:11:30 l 00:00: [place] Hyperglyce 00 maryam Inactive 08/20/2011 Problem 03/16/[address] [facility] [place] [place] Allergies, Adverse Reactions, Alerts Allergy Allergy [...] Comments) 01-03 [facility]: [facility] 00 [place] codeine codeine Active Memoria l [place] penicill penicill Active Memori a ins ins l [place] Prolex Prolex Active Memoria DM DM l [place] Ambien Ambien Active Memoria l [place] lisinopr lisinopr Active Memori a il il l [place] Social History Social Habit Start Date Stop Date Quantity Comments Source Sex Assigned At [facility] Cigarettes smoked 2017-12-17 2017-12-17 [facility] - current (pack per 00:00:00 00:00:00 [facility] Center day) - Reported Cigarette 2017-12-17 2017-12-17 [facility] - pack-years 00:00:00 00:00:00 [facility] Alcohol intake 2017-12-17 2017-12-17 Current [facility] es - 00:00:00 00:00:00 non-drinker of Medical Ce nter alcohol (finding) Tobacco Comment 2017-01-03 2017-01-03 patient stated MINERVA nam Patijazmin - 00:00:00 00:00:00 she stopped [address] month ago. History of tobacco 2016-12-[address] [facility] - use 00[facility]00 [facility] Center Social History 2016-06-11 2016-06-11 [facility] lCaudia lainez 04:38:12 04:38:12 Smoking Status Start Date Stop Date Source Former smoker 2017-12-17 00:00:00 2017-12-17 00:00:[address] [facility] Medications Ordered Filled Start Stop Current Ordering Indication Dosage Frequency Signature Comments Components Source Medication Medication Date Date Medication? Clinician (SIG) Name Name divalproex 2017 Yes depression 500mg QD Take 500 [...] 15:20: daily. Medica l 59 Center hydrALAZINE 2017 Yes 100mg [id number] Take [address] (APRESOLINE 7-20 [id number] mg by L ukes - ) 100 MG 15:20: 3D mouth 3 Medica l tablet 59 (three) Center times daily. magnesium 2017-0 Yes 400mg QD Take [address] oxide 7-20 mg by [facility] - (MAG-OX) 15:20: mouth Medical 400 mg 59 daily. Center tablet metoclopram 20170 Yes 10mg Q.[id number] Take [address] gadiel HCl 7-20 [id number] by mouth 3 [facility] - (REGLAN) 10 15:20: 3D (three) Med ical MG tablet 59 times Center daily. meclizine Yes 12.5mg Take 12.[address] [...] tab, PO, l Tablet 15:07: Daily, # [place] 00 30 tab, 0 Refill(s), Pharmacy: [id number] Bumex No 0.5 mg, Memoria 2- Route: PO, l 15:00: Drug form: Vin 00 TAB, Daily, Dosing Weight 92.273, kg, Start date: 07/30/16 9:00:00 MERCHANDISE EXAMINER, Duration: 30 day, Stop date: 08/28/16 9:00:00 MERCHANDISE EXAMINER Lasix No Notes: Memoria 2-08 (Same as: l 20:05: Lasix) [place] 00 May cause GI upset. Give with [...] Total Volume: 1,000, Start date: 07/26/16 12:26:00 MERCHANDISE EXAMINER, Duration: 30 day, Stop date: 08/25/16 12:25:00 MERCHANDISE EXAMINER Sodium 2016- No 500 mL, Memoria Chloride 2-05 500 ml/hr, l 0.154 13:30: Infuse Vin MEQ/ML 00 Over: 1 Injectable hr, Route: Solution IV, 500, Drug form: INJ, ONCE, Priority: STAT, Dosing Weight 92.273 kg, Start date: 07/26/16 7:30:00 MERCHANDISE EXAMINER, Duration: 1 doses or times, Stop date: 07/26/16 7:30:00 MERCHANDISE EXAMINER Insulin No 60 Memoria regular 2-04 units) l 08:39: WASTE: F/P Vin 00 - Black; E - Municipal Trash Bin Stable for 28 days at room temperatur e Expires in days from ____Date Insulin, No Notes: Memoria Aspart, 2-04 Roll in l Human 07:31: palms of [place] 00 hands gently; Do not shake vigorously . (Same as: NovoLOG) "single patient use only" WASTE: F/P - Black; E - Municipal Trash Bin Stable for 28 days at room temperatur e. Expires in days from ____Date Insulin, No Notes: Memoria Aspart, 2-04 Roll in l Human 05:42: palms of [place] 00 hands gently; Do not shake vigorously [...] Weight 92.273, kg, Start date: 07/24/16 9:00:00 MERCHANDISE EXAMINER, Duration: 30 day, Stop date: 08/22/16 9:00:00 MERCHANDISE EXAMINER 24 HR No Notes: Memoria Divalproex 2-03 [...] form: ERTAB, Daily, Start date: 07/24/16 9:00:00 MERCHANDISE EXAMINER, Duration: 30 day, Stop date: 08/22/16 9:00:00 MERCHANDISE EXAMINER Insulin No Notes: Memoria Glargine 2-03 Same [...] Roll in l Human 13:30: palms of [place] 00 hands gently; Do not shake vigorously . (Same as: NovoLOG) "single patient use only" WASTE: F/P - Black; E - Municipal Trash Bin Stable for 28 days at room temperatur e. Expires in days from ____Date Dilaudid No Notes: Memoria 2-03 Same as l 11:28: Dilaudid [place] 00 Insulin, No Notes: Memoria Aspart, 2-03 [...] Blood Glucose Results, Start date: 07/24/16 2:40:00 MERCHANDISE EXAMINER, Duration: 30 day, Stop date: 08/23/16 2:39:00 MERCHANDISE EXAMINER Dextrose No 25 gm, 50 Mendoza janice 50% Syringe 2-03 mL, Route: l 08:40: IVP, Drug Form: INJ, Dosing Weight 92.273, kg, PRN, PRN Blood Glucose Results, Start date: 07/24/16 2:40:00 MERCHANDISE EXAMINER, Duration: 30 day, Stop date: 08/23/16 2:39:00 MERCHANDISE EXAMINER Docusate No Notes: Memoria 2-03 (Same as: l 07:20: Colace) (Do Not Crush) Ondansetron No Notes: Mendoza janice - (Same as: l 07:20: Zofran) MEDICATION WASTE Product Size: 4 mg Product Wasted: ___ mg Lasix No Notes: Memoria 2-03 (Same as: l 06:01: Lasix) MEDICATION WASTE Product Size: 40 mg Product Wasted: ___ mg Aspirin No Notes: Memoria 2-03 Take with l 05:48: food. Prednisone No Notes: Memor ia 2-03 Take with l 05:02: food. Albuterol No Notes: Memori a 0.833 MG/ML - (Same as: l / 04:09: Duoneb) Ipratropium 00 Ch[place] 0.167 MG/ML Inhalant Solution [DuoNeb] Furosemide 2015-06 Yes 80 mg = 2 Me moria 40 MG Oral 2-26 tab, PO, l Tablet 16:34: BID, # 120 Nidia nn 00 tab, 0 Refill(s) atorvastati 2015-06 Yes 40 mg = 1 M emoria n 40 mg 2-26 tab, PO, l oral tablet 16:34: Bedtime, # [place] 00 30 tab, 0 Refill(s) Insulin 2015-06 [...] tab, PO, l tablet 16:34: Daily, # [place] 00 30 tab, 0 Refill(s) Lasix 2015-06 No Notes: Memoria 2-26 (Same as: l 15:00: Lasix) [place] 00 May cause GI upset. Give with food or milk. Magnesium 2015-06 No Notes: Memori a Oxide 2-24 (Same as: l 13:36: Mag-Ox Vin 00 400) Magnesium oxide 726mn=295n g elemental magnesium Dose=____m g magnesium oxide (___mg elemental magnesium) Magnesium 2015-06 No Notes: Memori a Oxide 2-24 (Same as: l 09:47: Mag-Ox [place] 00 400) Magnesium oxide 847tr=483h g elemental magnesium Dose=____m g magnesium oxide [...] Memoria 2-24 (Same as: l 00:00: Norvasc) [place] 00 Insulin 2015-06 No Notes: Memoria Glargine [...] MG Enteric 15:00: Depakote Her braden Coated ER) Once Tablet daily [Depakote] dosing; indicated for migraines. Divalproe x sodium extended-r elease tab. Do not chew or crush. "Do Not Crush" Aspirin 2015-06 No 81 mg, Memoria 2-22 Route: PO, l 15:00: Drug form: [place] 00 ECTAB, Daily, Dosing Weight 86.364, kg, Start date: 06/11/16 9:00:00 MERCHANDISE EXAMINER, Duration: 30 day, Stop date: 07/10/16 9:00:00 MERCHANDISE EXAMINER Insulin 2015-06 No Notes: Memoria Glargine 2-22 [...] as: l / 03:00: Duoneb) Ipratropium 00 [place] 0.167 MG/ML Inhalant Solution [DuoNeb] gabapentin 2015-06 No 300 mg, Mendoza janice 300 MG Oral 2-22 Route: PO, l Capsule 03:00: Drug form: Herm naeem CAP, Q12H, Dosing Weight 86.364, kg, (CrCl 30 - 59 ml/min), Start date: 06/10/16 21:00:00 MERCHANDISE EXAMINER, Duration: 30 day, Stop date: 07/10/16 9:00:00 MERCHANDISE EXAMINER divalproex 2015-06 No Notes: Memor ia sodium 2-22 (Same as: l 03:00: Depakote [place] 00 ER) Once daily dosing; indicated for [...] Blood Glucose Results, Start date: 06/10/16 18:50:00 MERCHANDISE EXAMINER, Duration: 30 day, Stop date: 07/10/16 18:49:00 MERCHANDISE EXAMINER Glucagon 2015-06 No 1 mg, Memoria 2-22 Route: IM, l 00:50: Drug form: [place] 00 PDR/INJ, PRN, Dosing Weight 86.364, kg, PRN Blood Glucose Results, Start date: 06/10/16 18:50:00 MERCHANDISE EXAMINER, Duration: 30 day, Stop date: 07/10/16 18:49:00 MERCHANDISE EXAMINER Hydralazine 2015-06 No Notes: Mendoza janice 2-22 [...] Hydralazine 2015-06 No 10 mg, Mendoza janice - Route: IV, l 00:06: ONCE, Dosing Weight 86.364, kg, Start date: 06/10/16 18:06:00 MERCHANDISE EXAMINER, Stop date: 06/10/16 18:06:00 MERCHANDISE EXAMINER hydrOXYzine 2015-06 No Notes: Mendoza janice pamoate 08-11 (Same as: l 23:00: Vistaril) Furosemide 2015-06 No 60 mg, Memor ia 08-11 Route: l 22:32: IVP, Drug form: INJ, ONCE, Dosing Weight 86.364, kg, Start date: 06/10/16 16:32:00 MERCHANDISE EXAMINER, Stop date: 06/10/16 16:32:00 MERCHANDISE EXAMINER Lasix 2015-06 No Notes: Memoria - (Same as: l 17:22: Lasix) MEDICATION WASTE Product Size: 40 mg Product Wasted: _0__ mg Albuterol 2015-06 No Notes: Memori a 0.833 MG/ML 08-11 (Same as: l 17:22: Duoneb) Ipratropium 00 [place] 0.167 MG/ML Inhalant Solution [DuoNeb] Promethazin Yes 25 mg = 1 M emoria e -06 supp, DC, l Hydrochlori 14:45: Q6H, Jake gonzalez de [...] 03/14/12 20:15:00, Stop date: 03/14/12 20:15:00 Sodium 2011- No Hung Murillo 500 mL, Me moria Chloride 9-24 Marx Rate: 500 l 0.9% 23:45: ml/hr, [place] (Bolus) IV 00 Infuse 500 mL over: 1 hr, Route: IV, kg, Total Volume: 500, Bolus Dose, Priority: STAT, Start date: 03/14/12 18:45:00, Duration: 1 doses or times, Stop date: 03/14/12 19:44:00 ondansetron No Hung Murillo 4 mg, Memoria 9-24 Marx Route: l 22:19: IVP, ONCE, Dosing Weight 58.636, kg, Priority: STAT, Start date: 03/14/12 17:19:00, Stop date: 03/14/12 17:19:00 morphine No Hung Murillo 5 mg, Me moria Sulfate 9-24 Marx Route: l 22:19: IVP, ONCE, Dosing Weight 58.636, kg, Priority: STAT, Start date: 03/14/12 17:19:00, Stop date: 03/14/12 17:19:00 pantoprazol No Hung Murillo 40 mg, Memoria e 9-24 Marx Route: l 22:19: IVP, ONCE, Dosing Weight 58.636, kg, For IV push reconstitu te with 10 ml 0.9% sodium chloride and push over at least 3 minutes, Priority: STAT, Start date: 03/14/12 17:19:00, Stop date: 03/14/12 17:19:00 Sodium 2011- No Yordan Murillo 500 mL, Me moria Chloride 03-14 Marx Rate: l 0.9% 22:19: 1,000 Vin [...] insulin No Blake 10 unit, Mem oria isophane-CORPORATE BOND TRADER 6-11 Deangelo 0.1 mL, l H 02:00: Route: [place] SUB-Q, Drug form: INJ, Bedtime, Start date: [...] tab, l 01:11: Brisa Route: PO, Her Drug form: TAB, ONCE, Priority: NOW, Start date: 11/29/11 20:11:00, Stop date: 11/29/11 20:11:00 morphine 2011- No [place] 2 mg, Memori a Sulfate 6-10 Omidvar Route: l 21:33: IVP, ONCE, [place] 00 Start date: 11/29/11 16:33:00, Stop date: [...] 2011- No Blake 14 unit, Mem oria isophane-[employer]ADER 6-10 Deangelo 0.14 mL, l H 14:00: [...] mL, Route: l 04:01: Brown IVP, Drug [place] 00 form: INJ, ONCE, Priority: STAT, Start date: 11/28/11 23:01:00, Stop date: 11/28/11 23:01:00 Griffin No Nikki 4 mg, 2 Mendoza janice 6-10 Sarah mL, Route: l 02:31: Brown IVP, Drug [place] 00 form: INJ, ONCE, Priority: STAT, Start [...] 1,000 mL 11-27 Rate: l 20:36: 1,000 [place] 00 ml/hr, Infuse over: 1 hr, Route: IV, Dosing Weight 57.273 kg, Total Volume: 1,000, Start date: 11/28/11 15:36:00, Duration: 30 day, Stop date: 12/28/11 15:35:00 Ativan No Arif Domenico 2 mg, 1 Mem oria 6-09 mL, Route: l 20:35: IVP, Drug [place] 00 form: INJ, ONCE, Priority: STAT, Start date: 11/28/11 15:35:00, Stop date: 11/28/11 15:35:00 Novolin R Yes Hughes-Jason 8 unit, M emoria 100 3-30 Creole SUB-Q, l units/mL 17:47: Dawson Q12H, 2 He rmann injectable 42 Pu vial, solution Substituti on Allowed, SOLN Novolin N Yes Hughes-Jason 10 unit, Memoria 100 3-30 Creole SUB-Q, l units/mL 17:46: Dawson Bedtime, H ermann subcutaneou 27 Pu 10 ml, s injection Substituti on Allowed, SUSP Novolin N 2011- Yes Hughes-Jason 14 unit, Memoria 100 3-30 Creole SUB-Q, l units/mL 17:44: Eunice QAM, 1 Her braden subcutaneou 37 Pu vial, s injection Substituti on Allowed, SUSP magnesium 2011- No Hughes-Jason 400 mg, 1 Memoria oxide 3-30 Creole tab, l 14:55: Dawson Route: PO, Her braden 00 Pu Drug form: TAB, ONCE, Priority: STAT, Start date: 09/18/11 9:55:00, Stop date: 09/18/11 9:55:00 Insulin 2011-0 No Hughes-Jason 8 unit, Mem oria regular 3-30 Creole 0.08 mL, l 14:22: Dawson Route: [place] 00 Pu SUB-Q, Drug form: SOLN, ONCE, Priority: STAT, Start date: 09/18/11 9:22:00, Stop date: 09/18/11 9:22:00 Lactated 2011- No Hughes-Jason 1,000 mL, Memoria Ringers 3-30 Creole Rate: l (Bolus) IV 14:16: Eunice 1,000 He rmann 1,000 mL 00 Pu ml/hr, Infuse over: 1 hr, Route: IV, Total Volume: 1,000, Bolus Dose, Priority: STAT, Start date: 09/18/11 9:16:00, Duration: 1 doses or times, Stop date: 09/18/11 10:15:00 Sodium 2011-0 No Hughes-Jason 1,000 mL, Me moria Chloride 3-30 Creole Rate: l 0.9% 14:06: Dawson 1,000 Vin (Bolus) IV 00 Pu ml/hr, 1000 mL Infuse over: 1 hr, Route: IV, kg, Total Volume: 1,000, Bolus Dose, Priority: STAT, Start date: 09/18/11 9:06:00, Duration: 1 doses or times, Stop date: 09/18/11 10:05:00 sulfamethox 2011-0 Yes Substituti Memoria azole 3-30 on Allowed l 14:04: Vin 58 Sodium No Hughes-Jason 1,000 mL, Me moria Chloride 3-30 Creole Rate: l 0.9% 13:56: Dawson 1,000 Vin [...] 3-21 Amelia cap, PO, l capsule 18:47: Seneca BID, 60 Her braden 19 cap, Substituti on Allowed, CAP clindamycin Yes Luna 300 mg, 2 Memoria 150 mg oral 3-21 Amelia cap, PO, l capsule 18:46: Zeeshan Q8H, 30 Her braden 55 cap, Substituti on Allowed, CAP [place] Yes Luna 1 tab, PO, Memoria 10/325 oral 3-21 Amelia Q4H, PRN, l tablet 18:46: Zeeshan 30 tab, Herm naeem 36 Pain, Substituti on Allowed, Maintenanc e, TAB [place] No Hollie Donavan 1 tab, Mendoza janice [...] 3-19 Omidvar tab, l 15:30: Route: PO, [place] 00 Drug form: TAB, Daily, Start date: [...] Josefina 0.1 mL, l 14:19: Gavin Route: [place] 00 IVP, Drug form: INJ, Q2MIN, PRN Narcotic Reversal, Start date: 09/07/11 9:19:00, Duration: 8 doses or times, Stop date: Limited # of times ondansetron No Gayle 4 mg, 2 Memoria 3-19 Josefina mL, Route: l 14:19: Everett IVP, Drug Jake n 00 form: INJ, ONCE, PRN Nausea & Vomiting, Start date: 09/07/11 9:19:00 hydromorpho No Gayle 0.5 mg, Memoria ne 3-19 Josefina 0.25 mL, l 14:19: Gavin Route: [place] 00 IVP, Drug form: INJ, Q5Min, PRN Pain Score 4-6, Start date: 09/07/11 9:19:00, Duration: 5 doses or times, Stop date: Limited # of times acetaminoph 0 No Gayle 15 mL, M emoria en-hydrocod 3-19 Josefina Route: PO, l one 325 14:19: Everett Drug Form: He rmann mg-10 mg/15 00 SOLN, Q4H, mL oral PRN Pain solution Score 4-6, Start date: 09/07/11 9:19:00, Duration: 1 day, Stop date: 09/08/11 8:00:00 Lactated 2011- No Bismark 1,000 mL, Me moria Ringers IV 3-19 Omidvar Rate: 125 l 1,000 mL 14:06: ml/hr, [place] 00 Infuse over: 8 hr, Route: IV, [...] Duration: 30 day, Stop date: 10/04/11 18:10:00 [place] 2012-0 No Mahammad 1 tab, Memori a [...] Kavon mL, Route: l 14:50: IVP, Drug [place] 00 form: INJ, ONCE, PRN Nausea & Vomiting, Start date: 09/04/11 9:50:00, Duration: 1 doses or times, Stop date: Limited # of times ropivacaine 2011-0 No Rosalino Dosing: Memoria 0.2% in NS 3-16 Kavon 10cc/hr, l - site 1 14:50: Route: [place] 400 mL 00 NERVE BLOCK, Start date: 09/04/11 9:50:00 400 mL, Duration: 30 day, Stop date: 10/04/11 9:49:00 naloxone 2011-0 No Rosalino 0.04 mg, Me moria 3-16 Kavon 0.1 mL, l 14:50: Route: [place] 00 IVP, Drug form: INJ, Q2MIN, PRN Narcotic Reversal, Start date: 09/04/11 9:50:00, Duration: 30 day, Stop date: 10/04/11 9:49:00 [place] 2011-0 No Bismark 1 tab, Memoria 10/325 oral 3-16 Omidvar Route: PO, l tablet 14:49: Drug Form: Nidia nn 00 TAB, Q4H, PRN Pain, Start date: 09/04/11 9:49:00, Stop date: 10/04/11 9:48:00 labetalol 2011-0 No Gregory F 5 mg, Mendoza janice 3-16 Puga Route: IV, l 14:40: ONCE, [place] 00 Start date: 09/04/11 9:40:00, Stop date: 09/04/11 9:40:00 ondansetron 2011-0 No Hollie 4 mg, 2 Me moria 3-16 Beck mL, Route: l 13:37: Hayden IVP, Drug Nidia nn 00 form: INJ, ONCE, PRN Nausea & Vomiting, Start date: 09/04/11 8:37:00 naloxone 2011-0 No Hollie 0.04 mg, Mendoza janice 3-16 Beck 0.1 mL, l 13:37: Hayden Route: IVP, Drug form: INJ, Q2MIN, PRN [...] date: 09/03/11 8:39:00, Stop date: 09/03/11 8:39:00 [place] 5/325 2011-0 No Rosalino 1 tab, M emoria oral tablet 3-15 Kavon Route: PO, l 05:00: Drug Form: Vin 00 TAB, Q4H, Start date: 09/03/11 0:00:00, Duration: 30 day, Stop date: 10/02/11 20:00:00 Geodon 2011-0 No Eber L 120 mg, 3 Memoria 3-15 Anabelle cap, l 02:00: Route: PO, [place] 00 Drug form: CAP, Bedtime, Start date: 09/02/11 21:00:00, Duration: 30 day, Stop date: 10/01/11 21:00:00 trazodone 2011-0 No Eber L 200 mg, 4 Memoria 100 mg oral 3-15 Anabelle tab, l tablet 02:00: Route: PO, Nidia Drug form: TAB, Bedtime, Start date: 09/02/11 21:00:00, Duration: 30 day, Stop date: 10/01/11 21:00:00 Effexor XR 2011-0 No Eber L 75 mg, 1 Memoria 3-14 Anabelle cap, l 17:00: Route: PO, Vin 00 Drug form: ERCAP, Daily, Give qAM after today's dose., Start date: 09/02/11 12:00:00, Duration: 30 day, Stop date: 10/02/11 9:00:00 [place] 5/325 2011-0 No Roslaino 1 tab, M emoria oral tablet 3-14 [...] Route: l 14:00: IVPB, Drug form: INJ, [id number], Start date: 09/02/11 9:00:00, Duration: 30 day, Stop date: 10/01/11 21:00:00 clindamycin 0 No Eber L 600 mg, 4 Memoria (SCIP) 3-14 Anabelle mL, Route: l 10:00: IVPB, Vin [id number], Start date: 09/02/11 5:00:00, Duration: 3 doses or times, Stop date: 09/02/11 21:00:00 clindamycin 2011-0 No Yury 600 mg, 4 Memoria (SCIP) 3-14 Silverio mL, Route: l 04:00: Connally IVPB, [place] 00 [id number], Start date: 09/01/11 23:00:00, Duration: 3 doses or times, Stop date: 09/02/11 15:00:00 insulin 2011-0 No Bismark 15 unit, Mendoza janice isophane[employer] 3-14 Omidvar 0.15 mL, l H 02:00: Route: SUB-Q, Drug form: INJ, Q12H, Start date: 09/01/11 21:00:00, Stop date: 10/01/11 9:00:00 labetalol No Mariaelena-Corea 5 mg, Me moria 3-14 Barbra Route: l 01:07: Feliciano IVP, [place] 00 Q5Min, PRN Elevated BP, Start date: 09/01/11 20:07:00, Duration: 5 doses or times, Stop date: Limited # of times hydrALAZINE 0 No Mariaelena-Corea 5 mg, Memoria 3-14 Barbra Route: l 01:07: Feliciano IVP, [place] 00 Q5Min, PRN Elevated BP, Start date: [...] 3-14 Barbra Route: l 01:07: Feliciano IVP, [place] 00 Q2MIN, PRN Narcotic Reversal, Start date: 09/01/11 20:07:00, Duration: 8 doses or times, Stop date: Limited # of times flumazenil No Mariaelena-Corea 0.2 mg, Memoria 3-14 Barbra Route: l 01:07: Feliciano IVP, PRN, Vin PRN Benzodiaze pine Reversal, Initial dose, Start date: 09/01/11 20:07:00, Duration: 30 day, Stop date: 10/01/11 20:06:00 ondansetron No Mariaelena-Corea 4 mg, Memoria 3-14 Barbra Route: l 01:07: Feliciano IVP, ONCE, [place] PRN Nausea & Vomiting, Start date: 09/01/11 20:07:00 vancomycin No Mele 1 gm, Mem oria 3-14 Gauvain Route: l 01:00: IVPB, Drug form: INJ, [id number], Start date: 09/01/11 20:00:00, Duration: 30 day, Stop date: 10/01/11 8:00:00 Lactated No Charbel A 1,000 mL, Memoria Ringers IV 3-14 Wong Rate: 125 l 1,000 mL 00:55: ml/hr, [place] 00 Infuse over: 8 hr, Route: IV, Dosing Weight 68.2 kg, Total Volume: 1,000, Start date: 09/01/11 19:55:00, Duration: 30 day, Stop date: 10/01/11 19:54:00 vancomycin 0 No Missael 1 gm, Memor ia 3-14 Movva Route: l 00:00: IVPB, Drug form: INJ, [id number], Start date: 09/01/11 19:00:00, Duration: 30 day, Stop date: 10/01/11 7:00:00 insulin 2011-0 No Missael 6 unit, Memori a aspart - Movva 0.06 mL, l 23:23: Route: Vin 00 SUB-Q, Drug form: SOLN, TID-Before Meals, PRN Blood Glucose Results, Start date: 09/01/11 18:23:00, Duration: 30 day, Stop date: 10/01/11 18:22:00 glucagon 2011- No Missael 1 mg, Memoria 3- Movva Route: IM, l 23:23: Drug form: Vin 00 PDR/INJ, PRN, PRN Blood Glucose Results, Start date: 09/01/11 18:23:00, Duration: 30 day, Stop date: 10/01/11 18:22:00 Dextrose 2011-0 No Missael 25 gm, 50 Mem oria 50% Syringe - Movva mL, Route: l 23:23: IVP, Drug Form: INJ, PRN, PRN Blood Glucose Results, Start date: 09/01/11 18:23:00, Duration: 30 day, Stop date: 10/01/11 18:22:00 morphine 2011-0 No Daja Shannan 2 mg, 1 M emoria Sulfate 3- Beni mL, Route: l 21:14: IVP, Drug form: INJ, Q4H, PRN Severe Pain, Start date: 09/01/11 16:14:00, Stop date: 10/01/11 16:13:00 Lactated 2011-0 No Cesar 1,000 mL, Me moria Ringers IV 3- Manuel [place] Rate: 100 l 1,000 mL 19:03: ml/hr, [...] 09/01/11 12:13:00, Stop date: 09/01/11 12:13:00 Lactated 2012-0 No Enid 2,000 mL, Mendoza janice Ringers [...] Madden 0.08 mL, l 15:28: Gurinder Route: [place] 00 SUB-Q, Drug form: SOLN, ONCE, Priority: STAT, Start date: 09/01/11 10:28:00, Stop date: 09/01/11 10:28:00 Sodium 2011-0 No Enid 1,000 mL, Memori a Chloride 3-13 Madden Rate: l 0.9% 14:53: Gurinder 1,000 [place] (Bolus) IV 00 ml/hr, 1,000 mL Infuse [...] emoria Chloride 3- Cruzito Rate: l 0.9% 10:41: 1,000 Vin (Bolus) IV 00 ml/hr, 1000 mL Infuse over: 1 hr, Route: IV, Dosing Weight 68.182 kg, Total Volume: 1,000, Bolus Dose, Priority: STAT, Start date: 09/01/11 5:41:00, Duration: 1 doses or times, Stop date: 09/01/11 6:40:00 ondansetron 2011- No Bee L 4 mg, Memoria 3- Cruzito Route: l 09:06: IVP, Drug [place] 00 form: INJ, ONCE, Priority: STAT, Start date: 09/01/11 4:06:00, Stop date: 09/01/11 4:06:00 morphine 2011- No Bee L 4 mg, Mem oria Sulfate - Pollard Route: l 09:06: IVP, ONCE, [place] 00 Priority: STAT, Start date: 09/01/11 4:06:00, Stop date: 09/01/11 4:06:00 Sodium No Bee L 1,000 mL, M emoria Chloride - Cruz[place] Rate: l 0.9% 08:42: 1,000 Vin (Bolus) IV 00 ml/hr, 1000 mL Infuse over: 1 hr, Route: IV, Dosing Weight 68.182 kg, Total Volume: 1,000, Bolus Dose, Priority: STAT, Start date: 09/01/11 3:42:00, Duration: 1 doses or times, Stop date: 09/01/11 4:41:00 Insulin 2011- No Bee L 8 unit, Me moria regular - [place]ard 0.08 mL, l 08:30: Route: Vin 00 IVP, Drug form: SOLN, ONCE, Priority: STAT, Start date: 09/01/11 3:30:00, Stop date: 09/01/11 3:30:00 Sodium 2011-0 No Bee L 1,000 mL, M emoria Chloride 3- Pollard Rate: l 0.9% 07:29: 1,000 [place] (Bolus) IV 00 ml/hr, 1,000 mL Infuse over: 1 hr, Route: IV, Dosing Weight 68.182 kg, Total Volume: 1,000, Bolus Dose, Priority: STAT, Start date: 09/01/11 2:29:00, Duration: 1 doses or times, Stop date: 09/01/11 3:28:00 potassium No Velásquez Noam 40 mEq, 2 Memoria chloride 3-04 Akmal tab, l 15:00: Route: PO, [place] Drug form: ERTAB, BID, Start date: 08/23/11 [...] chloride 3-04 Akmal Route: l 13:28: IVPB, [place] 00 ONCE, Priority: STAT, Start date: 08/23/11 7:28:00, Stop date: 08/23/11 7:28:00 potassium 2011-0 No Velásquez Noam 40 mEq, Memoria chloride 3-04 Akmal Route: IV, l 12:29: ONCE, [place] 00 Start date: 08/23/11 6:29:00, Stop date: [...] Rodriguez 10 mL, l 16:25: Ahmed Route: [place] 00 IVPB, ONCE, Start date: 08/22/11 10:25:00, [...] Akmal mL, Route: l 13:26: IVPB, Drug form: INJ, ONCE, Total dose = 2 [...] 1 Memoria 3-02 Gato tab, l 20:06: Rivreo Route: PO, H erm Drug form: TAB, [...] cap, l 03:00: Rivero Route: PO, H ermann 00 Drug form: CAP, ONCE, Start date: [...] 2011-0 No Yury 10 unit, Mem oria isoph[employer]ER 3- Gato Route: l H 16:00: Rivero SUB-Q, Nidia nn 00 ONCE, Start date: 08/20/11 10:00:00, Stop date: 08/20/11 10:00:00 trazodone 2011- Yes 200 mg, 2 Mem oria 100 mg oral 3- tab, PO, l tablet 15:37: Bedtime, [place] 27 90 tab, Substituti on Allowed, TAB [...] insulin No Yury 10 unit, Mem oria isoph[employer] 3- Gato Route: l H 15:00: Rivero SUB-Q, Nidia nn 00 Q12H, Start date: 08/20/11 9:00:00, Duration: 30 day, Stop date: 09/18/11 21:00:00 Geodon 2011- No Yury 60 mg, 3 Mendoza janice 3- Gato cap, l 15:00: Rivero Route: PO, H erm 00 Drug form: CAP, BID, Start date: [...] No Yury 20 mEq, Me moria chloride - Gato 100 mL, l 14:00: Rivero Route: Nidia nn 00 IVPB, Drug form: INJ, Q2H, Total dose = 80 mEq, Start date: 08/20/11 8:00:00, Duration: 4 doses or times, Stop date: 08/20/11 14:00:00 potassium No Yury 15 mmol, M emoria phosphate - Gato Route: l 12:47: Rivero IVPB, PRN, H ermann 00 PRN Abnormal Lab Result, Start date: 08/20/11 [...] insulin 2011- No 10 unit, Memori a isoph[employer]ER 3- SUB-Q, l H 09:26: BID, Vin 18 Substituti on Allowed NS 1,000 mL No Velásquez Noam 1,000 mL, Memoria 3- Akmal Rate: 150 l 09:06: ml/hr, [place] 00 Infuse over: 6.7 hr, Route: IV, Total Volume: 1,000, Start date: 08/20/11 3:06:00, Duration: 30 day, Stop date: 09/19/11 3:05:00 insulin 2011- No Yury 3 unit, Mendoza janice aspart 3- Gato 0.03 mL, l 09:06: Rivero Route: Nidia nn SUB-Q, Drug form: SOLN, Bedtime, PRN Blood Glucose Results, Start date: 08/20/11 3:06:00, Duration: 30 day, Stop date: 09/19/11 3:05:00 enoxaparin 2011- No Yury 40 mg, 0.4 Memoria 3-01 Gato mL, Route: l 09:00: Rivero SUB-Q, Nidia nn Drug form: INJ, Daily, Priority: Routine, Start date: 08/20/11 3:00:00, Duration: 30 day, Stop date: 09/18/11 9:00:00 insulin 2011- No Yury 18 unit, Mem oria isoph[employer] 3- Gato 0.18 mL, l H 08:58: [...] 50 M emoria 50% Syringe 3-01 Gato mL, Route: l 08:48: Rivero IVP, [...] No Hughes-Jason 4 mg, M emoria 08-19 Creole Route: l 07:42: Dawson IVP, Drug Herm naeem 00 Pu form: INJ, ONCE, Priority: STAT, Start date: 08/20/11 1:42:00, Stop date: 08/20/11 1:42:00 GI cocktail 2011- No Hughes-Jason 30 ml, Memoria 08-19 Creole Route: PO, l 05:12: Dawson Drug Form: Her braden 00 Pu SUSP, ONCE, STAT, Start date: 08/19/11 23:12:00, Stop date: 08/19/11 23:12:00 ondansetron No Hughes-Jason 4 mg, M emoria 08-19 Creole Route: PO, l 05:10: Dawson Drug form: Her braden 00 Pu TABDIS, ONCE, Priority: STAT, Start date: 08/19/11 23:10:00, Stop date: 08/19/11 23:10:00 Lactated No Hughes-Jason 1,000 mL, Memoria Ringers 08-19 Creole Rate: l (Bolus) IV 05:10: [place] 1,000 He rmann 1000 mL 00 Pu ml/hr, Infuse over: 1 hr, Route: IV, Total Volume: 1,000, Bolus Dose, Priority: STAT, Start date: 08/19/11 23:10:00, Duration: 1 doses or times, Stop date: 08/20/11 0:09:00 Insulin 2011- No Hughes-Jason 7 unit, Mem oria regular 08-19 Creole 0.07 mL, l 04:15: Dawson Route: [place] 00 Pu SUB-Q, Drug form: SOLN, ONCE, Priority: STAT, Start date: 08/19/11 22:15:00, Stop date: 08/19/11 22:15:00 Geodon 60 2011- No Yury 60 mg, 1 M emoria mg oral 2-29 Gato cap, PO, l capsule 23:24: Rivero BID, 180 [place] 43 cap, Substituti on Allowed, CAP trazodone No 300 mg, 1 Mem oria 300 mg oral 2-29 tab, PO, l tablet 23:23: Bedtime, [place] 58 15 tab, Substituti on Allowed, TAB Effexor XR Yes Yury 75 mg, 1 Memoria 75 mg oral Gato cap, PO, l capsule, 23:22: Rivero Daily, 30 [place] extended 24 cap, release Substituti on Allowed [...] Systolic (mm Hg) 2016-07-30 14:00:00 Mendoza rial [place] Diastolic (mm Hg) 2016-07-30 14:00:00 Mem orial Vin Respitory Rate 2016-07-30 14:00:00 Memori al [place] Heart Rate 2016-07-30 14:00:00 [facility] [place] Temperature Oral (F) 2016-07-30 14:00:00 97.4 F [facility] [place] Systolic (mm Hg) 2016-07-30 10:45:00 Mendoza rial Vin Diastolic (mm Hg) 2016-07-30 10:45:00 Mem orial Vin Heart Rate 2016-07-30 10:45:00 Memorial Vin Temperature Oral (F) 2016-07-30 10:45:00 97.2 F Memorial Vin Respitory Rate 2016-07-30 10:45:00 Memori al [place] Heart Rate 2016-07-30 06:35:00 Memorial Vin Temperature Oral (F) 2016-07-30 06:35:00 97.0 F [facility] [place] Respitory Rate 2016-07-30 06:35:00 Memori al Vin Systolic (mm Hg) 2016-07-30 06:35:00 Mendoza rial Vin Diastolic (mm Hg) 2016-07-30 06:35:00 Mem orial Vin Weight 2016-07-24 02:13:00 [facility] [place] BMI Calculated 2016-07-24 02:13:00 Memori al [place] Height 2016-07-24 02:13:00 160.02 cm Memorial Vin Respitory Rate 2016-06-15 15:00:00 Memori al Vin Systolic (mm Hg) 2016-06-15 15:00:00 Mendoza rial Vin Diastolic (mm Hg) 2016-06-15 15:00:00 Mem orial [place] Respitory Rate 2016-06-15 14:00:00 Memori al Vin Systolic (mm Hg) 2016-06-15 14:00:00 Mendoza rial Vin Diastolic (mm Hg) 2016-06-15 14:00:00 Mem orial Vin Respitory Rate 2016-06-15 13:29:00 Memori al [place] Systolic (mm Hg) 2016-06-15 13:29:00 Mendoza rial Vin Diastolic (mm Hg) 2016-06-15 13:29:00 Mem orial Vin Temperature Oral (F) 2016-06-14 10:56:00 97.1 F [facility] [place] Temperature Oral (F) 2016-06-14 06:55:00 97.1 F Memorial Vin Temperature Oral (F) 2016-06-12 10:00:00 96.8 F [facility] Vin Weight 2016-06-11 04:25:00 [facility] [place] Height 2016-06-11 04:25:00 160.02 cm Memorial Vin BMI Calculated 2016-06-11 04:25:00 Memori al Vin Heart Rate 2016-06-11 02:04:00 [facility] [place] Heart Rate 2016-06-11 00:00:00 Memorial Vin Heart Rate 2016-06-10 20:30:00 [facility] [place] Weight 2016-06-10 16:04:00 [facility] Vin BMI Calculated 2016-06-10 16:04:00 Memori al Vin Height 2016-06-10 16:04:00 160.02 cm [facility] [place] Temperature Oral (F) 2014-06-26 15:12:00 98.0 F [facility] Vin Systolic (mm Hg) 2014-06-26 15:12:00 Mendoza rial Vin Heart Rate 2014-06-26 15:12:00 Memorial Vin Diastolic (mm Hg) 2014-06-26 15:12:00 Mem orial Vin Respitory Rate 2014-06-26 15:12:00 Memori al [place] Systolic (mm Hg) 2014-06-26 13:53:00 Mendoza rial Vin Diastolic (mm Hg) 2014-06-26 13:53:00 Mem orial [place] Respitory Rate 2014-06-26 13:53:00 Memori al Vin Temperature Oral (F) 2014-06-26 13:53:00 98.0 F [facility] [place] Temperature Oral (F) 2014-06-26 12:37:00 98.2 F [facility] [place] Respitory Rate 2014-06-26 12:37:00 Memori al [place] Systolic (mm Hg) 2014-06-26 12:37:00 Mendoza rial Vin Diastolic (mm Hg) 2014-06-26 12:37:00 Mem orial [place] Heart Rate 2014-06-26 09:21:00 [facility] [place] Heart Rate 2014-06-26 06:08:00 [facility] [place] Height 2014-06-26 05:35:00 154.94 cm [facility] [place] Weight 2014-06-26 05:35:00 [facility] Vin BMI Calculated [...] Diastolic (mm Hg) 2013-04-15 05:37:00 Mem orial [place] Systolic (mm Hg) 2013-04-15 05:37:00 Mendoza rial Vin Temperature Oral (F) 2013-04-15 05:37:00 98.2 F [facility] [place] Heart Rate 2013-04-15 05:37:00 [facility] [place] Height 2013-04-15 02:06:00 160.02 cm [facility] [place] Weight 2013-04-15 02:06:00 [facility] [place] Temperature Oral (F) 2013-04-15 02:06:00 98.6 F [facility] [place] Respitory Rate 2013-04-15 02:06:00 Memori al [place] Heart Rate 2013-04-15 02:06:00 [facility] [place] Diastolic (mm Hg) 2013-04-15 02:06:00 Mem orial Vin Systolic (mm Hg) 2013-04-15 02:06:00 Mendoza rial Vin Weight 2012-03-14 21:33:00 Memorial Vin Systolic (mm Hg) 2011-12-01 00:33:00 Mendoza rial Vin Respitory Rate 2011-12-01 00:33:00 Memori al Vin Heart Rate 2011-12-01 00:33:00 Memorial Vin Diastolic (mm Hg) 2011-12-01 00:33:00 Mem orial [place] Temperature Oral (F) 2011-12-01 00:33:00 99.6 F [facility] [place] Diastolic (mm Hg) 2011-11-30 21:00:00 Mem orial Vin Heart Rate 2011-11-30 21:00:00 [facility] [place] Respitory Rate 2011-11-30 21:00:00 Memori al [place] Systolic (mm Hg) 2011-11-30 21:00:00 Mendoza rial Vin Temperature Oral (F) 2011-11-30 21:00:00 99.8 F Memorial Vin Respitory Rate 2011-11-30 16:30:00 Memori al Vin Systolic (mm Hg) 2011-11-30 16:30:00 Mendoza rial [place] Diastolic (mm Hg) 2011-11-30 16:30:00 Mem orial [place] Heart Rate 2011-11-30 16:30:00 Memorial Vin Temperature Oral (F) 2011-11-30 16:30:00 99.8 F [facility] Vin Weight 2011-11-29 11:40:00 [facility] [place] Height 2011-11-29 11:40:00 157.48 cm [facility] [place] Weight 2011-11-28 17:16:00 [facility] [place] Weight 2011-09-18 13:30:00 [facility] [place] Height 2011-09-18 13:30:00 154.94 cm [facility] [place] Heart Rate 2011-09-09 13:31:00 Memorial Vin Systolic (mm Hg) 2011-09-09 13:02:00 Mendoza rial Vin Diastolic (mm Hg) 2011-09-09 13:02:00 Mem orial [place] Respitory Rate 2011-09-09 13:02:00 Memori al [place] Temperature Oral (F) 2011-09-09 13:02:00 97.5 F Memorial Vin Diastolic (mm Hg) 2011-09-09 08:00:00 Mem orial Vin Heart Rate 2011-09-09 08:00:00 [facility] [place] Temperature Oral (F) 2011-09-09 08:00:00 98.6 F [facility] [place] Respitory Rate 2011-09-09 08:00:00 Memori al Vin Systolic (mm Hg) 2011-09-09 08:00:00 Mendoza rial [place] Respitory Rate 2011-09-09 04:55:00 Memori al [place] Diastolic (mm Hg) 2011-09-09 04:55:00 Mem orial [place] Systolic (mm Hg) 2011-09-09 04:55:00 Mendoza rial Vin Heart Rate 2011-09-09 04:55:00 Memorial Vin Temperature Oral (F) 2011-09-09 00:55:00 98.7 F [facility] [place] Weight 2011-09-01 19:59:00 [facility] Vin Height 2011-09-01 19:59:00 154.94 cm [facility] [place] Height 2011-09-01 07:01:00 154.94 cm [facility] [place] Weight 2011-09-01 07:01:00 [facility] [place] Respitory Rate 2011-08-23 18:00:00 Memori al Vin Heart Rate 2011-08-23 18:00:00 [facility] [place] Systolic (mm Hg) 2011-08-23 18:00:00 Mendoza rial [place] Diastolic (mm Hg) 2011-08-23 18:00:00 Mem orial Vin Temperature Oral (F) 2011-08-23 18:00:00 97.7 F Memorial Vin Heart Rate 2011-08-23 14:24:00 Memorial Vin Temperature Oral (F) 2011-08-23 14:24:00 98.2 F [facility] Vin Diastolic (mm Hg) 2011-08-23 14:24:00 Mem orial [place] Systolic (mm Hg) 2011-08-23 14:24:00 Mendoza rial Vin Respitory Rate 2011-08-23 14:24:00 Memori al Vin Systolic (mm Hg) 2011-08-23 11:15:00 Mendoza rial [place] Diastolic (mm Hg) 2011-08-23 11:15:00 Mem orial Vin Temperature Oral (F) 2011-08-23 11:00:00 98.3 F [facility] [place] Heart Rate 2011-08-23 11:00:00 [facility] [place] Respitory Rate 2011-08-22 22:00:00 Mem[facility] al [place] Height 2011-08-20 09:12:00 154.94 cm [facility] [place] Weight 2011-08-20 09:12:00 [facility] Vin Height 2011-08-19 20:28:00 154.94 cm [facility] [place] Weight 2011-08-19 20:28:00 [facility] [place] Procedures Procedure Date / Time Performed Performing Clinician [facility] Emergency department visit 2013-04-15 05:00:00 [...] Substance Intravenous infusion, 2013-04-15 05:00:00 Memori al [place] hydration; each additional hour (List separately in addition to code for primary procedure) Therapeutic, prophylactic, 2013-04-15 05:00:00 M emorial Vin or diagnostic injection (specify substance or drug); each additional sequential intravenous push of a new substance/drug (List separately in addition to code for primary procedure) Therapeutic, prophylactic, 2013-04-15 05:00:00 M emorial [place] or diagnostic injection (specify substance or drug); intravenous push, single or initial substance/drug section [facility] Start End Encounter Admission Attending Care Care Encounter Source Date/Time Date/Time Type Type Clinicians Facility Department ID 2020-10-27 2020-10-27 Keyona Olivares [facility] [id number] 00:00:00 00:00:00 (Out) Oz Sims [id number] [place] [id number] Professio [phone] nal 059 [facility] 2020-10-24 2020-10-24 Orders Doctor JOANNA [id number] 00:00:00 00:00:00 Only Unassigned, MAGDALENO [id number] [facility] [id number] 2020-09-24 2020-09-24 [facility] [id number] 00:00:00 00:00:00 Wentmaricruz Sims [id number] [place] [id number] Professio [phone] nal 220 [facility] 2020-09-09 2020-09-09 [facility] [id number] 00:00:00 00:00:00 Outreach Earl PRIMARY [id number] Manuel CARE [id number] PAVILLION [id number] 2020-07-23 2020-07-23 [facility] [id number] 13:31:20 14:37:36 Visit Deja PRIMARY [id number] A CARE [id number] PAVILLION [id number] 2020-01-25 2020-01-31 Inpatient 1 Rei Waldron [facility] [id number] 21:31:00 18:15:00 Rei Waldron [facility] 2016-07-23 2016-07-30 Outpatient Yaquelin [facility] [id number] 20:04:00 10:20:00 Luna 10 2016-06-10 2016-06-15 Outpatient Franck [facility] [id number] 10:02:00 12:23:00 Joe Yan 09 2014-06-25 2014-06-26 [id number] 23:25:00 09:14:00 Atul Priest 2013-04-14 2013-04-15 Outpatient [facility] [id number] Memoria 21:04:00 01:45:00 [place] [facility] [address] [facility] 2013-04-14 2013-04-15 Outpatient [facility] [id number] Memoria 21:04:00 01:45:00 [place] 07 [facility] 2013-04-14 2013-04-15 Outpatient [facility] [id number] Memoria 21:04:00 01:45:00 [place] [address] [place] [address] [facility] 2013-04-14 2013-04-15 Outpatient [facility] [id number] Memoria 21:04:00 01:45:00 [place] [address] [place] [address] [facility] 2013-04-14 2013-04-15 Outpatient [facility] [id number] Memoria 21:04:00 01:45:00 [place] [address] [place] [address] [facility] Test Description Test Time Test [...] the main Lab for analysi s. Urine [id number] 11:32:13 Test Item Value Reference Range Interpretation [...] Escherichia coli C Urine Added by [id number] 07:52:10 Test Item Value Reference Range Interpretation Comments Glucose POC (test 160 mg/dL 70-115 H If you con agricultural research director your code = Glucose POC) patient critically ill, the Merlin-Accu Check Infrom II meter should not be used for Glucose determination. Draw a venous Glucose and send to the main Lab for analysis. POC [id number] 19:32:05 Test Item Value Reference Range Interpretation Comments Glucose POC (test 184 mg/dL 70-115 H If you con agricultural research director your code = Glucose POC) patient critically ill, the Merlin-Accu Check Infrom II meter should not be used for Glucose determination. Draw a venous Glucose and send to the main Lab for analysis. POC [id number] 17:16:35 Test Item Value Reference Range Interpretation Comments Glucose POC (test 281 mg/dL 70-115 H Notify RN or MDIf you code = Glucose POC) consider your patient critically ill, the Merlin-Accu Chec k Infrom II meter should not be used for Glucos e determination. Draw a venous Glucose and send to the main Lab for analysis. POC [id number] 12:00:38 Test Item Value Reference Range Interpretation Comments Glucose POC (test 138 mg/dL 70-115 H Notify RN or MDIf you code = Glucose POC) consider your patient critically ill, the Merlin-Accu Chec k Infrom II meter should not be used for Glucos e determination. Draw a venous Glucose and send to the main Lab for analysis. POC [id number] 07:41:32 Test Item Value Reference Range Interpretation Comments Glucose POC (test 206 mg/dL 70-115 H Notify RN or MDIf you code = Glucose POC) consider your patient critically ill, the Merlin-Accu Chec k Infrom II meter should not be used for Glucos e determination. Draw a venous Glucose and send to the main Lab for analysis. Urinalysis [id number] 21:07:21 Test Item Value Reference Range Interpretation Comments UA WBC (test code = UA WBC) TNTC 0-5 A UA RBC (test code = UA RBC) 6-10 0-5 A UA Bacteria (test code = UA Bacteria) Profuse A UA Squam Epithelial (test code = UA 6-10 A Squam Epithelial) Urinalysis with Culture, if [id number] 20:35:14 Test Item Value Reference Range Interpretation [...] Micro Indicated Not Indicated A Ind?) POC [id number] 19:06:34 Test Item Value Reference Range Interpretation Comments Glucose POC (test 207 mg/dL 70-115 H If you con agricultural research director your code = Glucose POC) patient critically ill, the Merlin-Accu Check Infrom II meter should not be used for Glucose determination. Draw a venous Glucose and send to the main Lab for analysis. POC [id number] 17:12:03 Test Item Value Reference Range Interpretation Comments Glucose POC (test 173 mg/dL 70-115 H Notify RN or MDIf you code = Glucose POC) consider your patient critically ill, the Merlin-Accu Chec k Infrom II meter should not be used for Glucos e determination. Draw a venous Glucose and send to the main Lab for analysis. POC [id number] 11:58:01 Test Item Value Reference Range Interpretation Comments Glucose POC (test 289 mg/dL 70-115 H Notify RN or MDIf you code = Glucose POC) consider your patient critically ill, the Merlin-Accu Chec k Infrom II meter should not be used for Glucos e determination. Draw a venous Glucose and send to the main Lab for analysis. POC [id number] 08:19:37 Test Item Value Reference Range Interpretation Comments Glucose POC (test 201 mg/dL 70-115 H Notify RN or MDIf you code = Glucose POC) consider your patient critically ill, the Merlin-Accu Chec k Infrom II meter should not be used for Glucos e determination. Draw a venous Glucose and send to the main Lab for analysis. POC [id number] 20:37:35 Test Item Value Reference Range Interpretation Comments Glucose POC (test 272 mg/dL 70-115 H If you con agricultural research director your code = Glucose POC) patient critically ill, the Merlin-Accu Check Infrom II meter should not be used for Glucose determination. Draw a venous Glucose and send to the main Lab for analysis. POC [id number] 17:23:05 Test Item Value Reference Range Interpretation Comments Glucose POC (test 229 mg/dL 70-115 H If you con agricultural research director your code = Glucose POC) patient critically ill, the Merlin-Accu Check Infrom II meter should not be used for Glucose determination. Draw a venous Glucose and send to the main Lab for analysis. POC [id number] 12:01:01 Test Item Value Reference Range Interpretation Comments Glucose POC (test 155 mg/dL 70-115 H If you con agricultural research director your code = Glucose POC) patient critically ill, the Merlin-Accu Check Infrom II meter should not be used for Glucose determination. Draw a venous Glucose and send to the main Lab for analysis. POC [id number] 08:07:32 Test Item Value Reference Range Interpretation Comments Glucose POC (test 248 mg/dL 70-115 H If you con agricultural research director your code = Glucose POC) patient critically ill, the Merlin-Accu Check Infrom II meter should not be used for Glucose determination. Draw a venous Glucose and send to the main Lab for analysis. IG [id number] 06:50:39 Test Item Value Reference Range Interpretation Comments IG (test code = IG) 0.7 % 0.0-5.0 IG Abs (test code = IG Abs) 0 x10 N Complete Blood Count with [id number] 06:50:38 Test Item Value Reference Range Interpretation [...] code = IPF) 0 % N Automated [id number] 06:50:38 Test Item Value Reference Range Interpretation Comments Neutro Auto (test code = Neutro 50.3 % 36.0-70.0 Auto) Lymph Auto (test code = Lymph Auto) 38.6 % 12.0-44.0 Pepin Auto (test code = Pepin Auto) 7.3 % 0.0-11.0 Eos, Auto (test code = Eos, Auto) 2.4 % 0.0-7.0 Basophil Auto (test code = Basophil 0.7 % 0.0-2.0 Auto) Neutro Absolute (test code = Neutro 3.0 x10 1.6-7.4 Absolute) Lymph Absolute (test code = Lymph 2.28 x10 .50-4.60 Absolute) Pepin Absolute (test code = Pepin .43 x10 .00-1.20 Absolute) Eos Absolute (test code = Eos 0.14 x10 0.00-0.74 Absolute) Baso Absolute (test code = Baso 0.04 x10 0.00-0.21 Absolute) Basic Metabolic [id number] 05:38:20 Test Item Value Reference Range Interpretation [...] = Lipemia) 0 mg/dL 8-11 Basic Metabolic [id number] 05:38:20 Test Item Value Reference Range Interpretation [...] = 0 mg/dL 8-11 Lipemia) Basic Metabolic [id number] 05:38:20 Test Item Value Reference Range Interpretation [...] ag e have not been validated by [facility] MDRD study and should be interpreted wit [...] ag e have not been validated by [facility] MDRD study and should be interpreted wit [...] code = 0 mg/dL 8-11 Lipemia) POC [id number] 20:28:33 Test Item Value Reference Range Interpretation Comments Glucose POC (test 169 mg/dL 70-115 H If you con agricultural research director your code = Glucose POC) patient critically ill, the Merlin-Accu Check Infrom II meter should not be used for Glucose determination. Draw a venous Glucose and send to the main Lab for analysis. POC [id number] 16:39:30 Test Item Value Reference Range Interpretation Comments Glucose POC (test 103 mg/dL 70-115 If you con agricultural research director your code = Glucose POC) patient critically ill, the Merlin-Accu Check Infrom II meter should not be used for Glucose determination. Draw a venous Glucose and send to the main Lab for analysis. RPR [id number] 12:08:56 Test Item Value Reference Range Interpretation Comments RPR Qual (test code = RPR Qual) Non-Reactive Non-Reactive Reactive Control (test code = Reactive Reactive Control) Weak Reactive Control (test Weak Reactive code = Weak Reactive Control) Non-Reactive Control (test code Non-Reactive = Non-Reactive Control) Lot # (test code = Lot #) [id number] N Expiration Dt (test code = 03-20-2021 N Expiration Dt) POC [id number] 11:52:31 Test Item Value Reference Range Interpretation Comments Glucose POC (test 250 mg/dL 70-115 H If you con agricultural research director your code = Glucose POC) patient critically ill, the Merlin-Accu Check Infrom II meter should not be used for Glucose determination. Draw a venous Glucose and send to the main Lab for analysis. POC [id number] 07:55:29 Test Item Value Reference Range Interpretation Comments Glucose POC (test 205 mg/dL 70-115 H If you con agricultural research director your code = Glucose POC) patient critically ill, the Merlin-Accu Check Infrom II meter should not be used for Glucose determination. Draw a venous Glucose and send to the main Lab for analysis. Lipid [id number] 05:46:04 Test Item Value Reference Range Interpretation [...] LDL/HDL Ratio=L DL Calc/HDL Chol Thyroid Stimulating [id number] 05:46:04 Test Item Value Reference Range Interpretation Comments TSH (test code = TSH) 3.274 mcIU/mL 0.550-4.780 Hemoglobin [id number] 05:41:08 Test Item Value Reference Range Interpretation Comments Hemoglobin A1c (test code 7.6 % 4.0-5.8 H Di abetic >=6.5 = Hemoglobin A1c) %Prediabet es 5.7-6.4 %Normal <5.7 % Hepatitis B Surface [id number] 21:19:36 Test Item Value Reference Range Interpretation Comments Hep Bs Ag (test code = Hep Bs Non-Reactive Non-Reactive Ag) Novel Coronavirus SARS-CoV-2, [id number] 11:16:16 Test Item Value Reference Range Interpretation [...] Emergency Use Authorization." Novel Coronavirus (COVID-19), EMANUEL [id number] 11:11:24TNPTest not sent and performed at [facility].Rapid was perfomed in Microbiology.Wrong covid test was ord ered.Urine DOA [id number] 00:17:49 Test Item Value Reference Range Interpretation [...] Propoxyphene Confirmation wi thin 7 days. Alcohol [id number] 00:17:29 Test Item Value Reference Range Interpretation Comments Ethanol Level 9.0 mg/dL N The pharmacolo gical (test code = response to blo od alcohol Ethanol Level) levels may va ry from individual to i ndividual. The fatal omkar ntration has been report ed to be >400 mg/dl. Comprehensive Metabolic [id number] 00:17:28 Test Item Value Reference Range Interpretation [...] = Lipemia) 0 g/dL 1-2 Comprehensive Metabolic [id number] 00:17:28 Test Item Value Reference Range Interpretation [...] = 0 g/dL 1-2 Lipemia) Comprehensive Metabolic [id number] 00:17:28 Test Item Value Reference Range Interpretation [...] g/dL 1-2 Lipemia) Complete Blood Count with [id number] 23:26:28 Test Item Value Reference Range Interpretation [...] code = IPF) 0 % N Automated [id number] 23:26:28 Test Item Value Reference Range Interpretation Comments Neutro Auto (test code = Neutro 67.1 % 36.0-70.0 Auto) Lymph Auto (test code = Lymph Auto) 23.3 % 12.0-44.0 Pepin Auto (test code = Pepin Auto) 5.8 % 0.0-11.0 Eos, Auto (test code = Eos, Auto) 2.3 % 0.0-7.0 Basophil Auto (test code = Basophil 0.8 % 0.0-2.0 Auto) Neutro Absolute (test code = Neutro 6.0 x10 1.6-7.4 Absolute) Lymph Absolute (test code = Lymph 2.10 x10 .50-4.60 Absolute) Pepin Absolute (test code = Pepin .52 x10 .00-1.20 Absolute) Eos Absolute (test code = Eos 0.21 x10 0.00-0.74 Absolute) Baso Absolute (test code = Baso 0.07 x10 0.00-0.21 Absolute) IG [id number] 23:26:28 Test Item Value Reference Range Interpretation Comments IG (test code = IG) 0.7 % 0.0-5.0 IG Abs (test code = IG Abs) 0 x10 N HERPES VIRUS ANTIBODY, [id number] 21:46:00 Test Item Value Reference Range Interpretation Comments HERPES VIRUS IGM (BEAKER) Negative SE E ATTACHMENT (test code = 1808) BLOOD [id number] 06:00:00 Test Item Value Reference Range Interpretation Comments CULTURE (BEAKER) (test No growth in 5 days code = 1095) BLOOD [id number] 06:00:00 Test Item Value Reference Range Interpretation Comments CULTURE (BEAKER) (test No growth in 5 days code = 1095) POCT-GLUCOSE [id number] 12:11:00 Test Item Value Reference Range Interpretation Comments POC-GLUCOSE METER 154 mg/dL 70-110 H TESTED AT [facility] 6720 (BEAKER) (test code = [facility] 1538) [address] POCT-GLUCOSE [id number] 07:53:00 Test Item Value Reference Range Interpretation Comments POC-GLUCOSE METER 87 mg/dL 70-110 TESTED AT [place] [address] (BEAKER) (test code = [facility] [address] 1538) POCT-GLUCOSE [id number] 06:49:00 Test Item Value Reference Range Interpretation Comments POC-GLUCOSE METER 79 mg/dL 70-110 TESTED AT [place] [address] (BEAKER) (test code = [facility] [address] 1538) COMPREHENSIVE METABOLIC [id number] 06:15:00 Test Item Value Reference Range Interpretation [...] S NOT APPLICABLE FOR DIALYSIS PATIEN TS. [id number] 06:11:00 Test Item Value Reference Range Interpretation Comments MAGNESIUM (BEAKER) (test code = 2.1 mg/dL 1.6-2.6 627) HEPATIC FUNCTION [id number] 06:11:00 Test Item Value Reference Range Interpretation [...] code = 513 U/L 6-55 H 347) [id number] 05:30:00 Test Item Value Reference Range Interpretation Comments FIBRINOGEN LEVEL (BEAKER) (test 368 mg/dl 225-434 code = 658) [id number] 05:30:00 Test Item Value Reference Range Interpretation Comments PARTIAL THROMBOPLASTIN TIME 42.2 seconds 22.5-36.0 H (BEAKER) (test code = 760) PROTHROMBIN [id number] 05:29:00 Test Item Value Reference Range Interpretation Comments PROTIME (BEAKER) (test code = 14.8 seconds 11.7-14.7 H 759) INR (BEAKER) (test code = 370) 1.2 <=5.9 RECOMMENDED COUMADIN/WARFARIN INR THERAPY RANGESSTANDARD DOSE: 2.0 - 3.0 Includes: PROPHYLAXIS forvenous thrombosis, systemic embolization; TREATMENT for venous thrombosis and/or pulmonary embolus.HIGH RISK: Target INR is 2.5-3.5 for patients with mechanical heart valves.POCT-GLUCOSE [id number] 21:09:00 Test Item Value Reference Range Interpretation Comments POC-GLUCOSE METER 178 mg/dL 70-110 H TESTED AT [place] [address] ([facility]) (test code = [facility] 1538) [address] POCT-GLUCOSE [id number] 17:18:00 Test Item Value Reference Range Interpretation Comments POC-GLUCOSE METER 178 mg/dL 70-110 H TESTED AT [place] [address] ([facility]) (test code = [facility] 1538) [address] POCT-GLUCOSE [id number] 13:48:00 Test Item Value Reference Range Interpretation Comments POC-GLUCOSE METER 150 mg/dL 70-110 H TESTED AT [place] [address] ([facility]) (test code = [facility] 1538) [address] FACTOR 5 ACTIVITY (BLEEDING RISK)2017-01-06 10:04:00 Test Item Value Reference Range Interpretation Comments FACTOR V ACTIVITY ([facility]) (test code 90.0 % 60.0-150.0 = 665) Effective 10/24/2013: Reference Range Change-Adult onlyNew: 60.0-150.0 Previous: 50.0-150.0CYTOMEGALOVIRUS ANTIBODY, [id number] 09:42:00 Test Item Value Reference Range Interpretation Comments CYTOMEGALOVIRUS IGM ANTIBODY Negative [facility] (test code = 816) HERPES VIRUS ANTIBODY, [id number] 08:59:00 Test Item Value Reference Range Interpretation Comments 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[facility]) (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 G 1807) CYTOMEGALOVIRUS ANTIBODY, [id number] 08:59:00 Test Item Value Reference Range Interpretation Comments CYTOMEGALOVIRUS IGG ANTIBODY Positive ([facility]) (test code = 790) EBV-VCA ANTIBODY, [id number] 08:59:00 Test Item Value Reference Range Interpretation Comments JASE-WALL VCA IGG ([facility] (test Positive code = 983) EBV-VCA ANTIBODY, [id number] 08:59:00 Test Item Value Reference Range Interpretation Comments JASE-WALL VCA IGM (BEAKER) (test Negative code = 984) POCT-GLUCOSE [id number] 07:59:00 Test Item Value Reference Range Interpretation Comments POC-GLUCOSE METER 81 mg/dL 70-110 TESTED AT [facility] 6720 (BEAKER) (test code = [place] [address] 5608) COMPREHENSIVE METABOLIC [id number] 06:23:00 Test Item Value Reference Range Interpretation [...] S NOT APPLICABLE FOR DIALYSIS PATIEN TS. [id number] 06:17:00 Test Item Value Reference Range Interpretation Comments MAGNESIUM (BEAKER) (test code = 1.8 mg/dL 1.6-2.6 627) HEPATIC FUNCTION [id number] 06:17:00 Test Item Value Reference Range Interpretation [...] code = 779 U/L 6-55 H 347) [id number] 06:00:00 Test Item Value Reference Range Interpretation Comments FIBRINOGEN LEVEL (BEAKER) (test 390 mg/dl 225-434 code = 658) [id number] 06:00:00 Test Item Value Reference Range Interpretation Comments PARTIAL THROMBOPLASTIN TIME 40.2 seconds 22.5-36.0 H (BEAKER) (test code = 760) PROTHROMBIN [id number] 05:59:00 Test Item Value Reference Range Interpretation Comments PROTIME (BEAKER) (test code = 14.6 seconds 11.7-14.7 759) INR (BEAKER) (test code = 370) 1.2 <=5.9 RECOMMENDED COUMADIN/WARFARIN INR THERAPY RANGESSTANDARD DOSE: 2.0 - 3.0 Includes: PROPHYLAXIS forvenous thrombosis, systemic embolization; TREATMENT for venous thrombosis and/or pulmonary embolus.HIGH RISK: Target INR is 2.5-3.5 for patients with mechanical heart valves.POCT-GLUCOSE [id number] 21:46:00 Test Item Value Reference Range Interpretation Comments POC-GLUCOSE METER 153 mg/dL 70-110 H TESTED AT [facility] 6720 ([facility]) (test code = [place] 1538) [address] POCT-GLUCOSE [id number] 18:47:00 Test Item Value Reference Range Interpretation Comments POC-GLUCOSE METER 181 mg/dL 70-110 H TESTED AT [facility] 6720 (BEAKER) (test code = [place] 1538) [address] POCT-GLUCOSE [id number] 12:40:00 Test Item Value Reference Range Interpretation Comments POC-GLUCOSE METER 178 mg/dL 70-110 H TESTED AT [facility] 6720 (BEAKER) (test code = [place] 1538) [address] POCT-GLUCOSE [id number] 07:51:00 Test Item Value Reference Range Interpretation Comments POC-GLUCOSE METER 166 mg/dL 70-110 H TESTED AT [place] [address] (BEAKER) (test code = [place] [facility] 1538) [address] COMPREHENSIVE METABOLIC [id number] 03:26:00 Test Item Value Reference Range Interpretation [...] S NOT APPLICABLE FOR DIALYSIS PATIEN TS. [id number] 03:22:00 Test Item Value Reference Range Interpretation Comments MAGNESIUM (BEAKER) (test code = 1.4 mg/dL 1.6-2.6 L 627) HEPATIC FUNCTION [id number] 03:22:00 Test Item Value Reference Range Interpretation [...] code = 1009 U/L 6-55 H 347) [id number] 03:12:00 Test Item Value Reference Range Interpretation Comments AMMONIA (BEAKER) (test code = 348) 29 mol/L 18-72 [id number] 03:10:00 Test Item Value Reference Range Interpretation Comments PARTIAL THROMBOPLASTIN TIME 42.3 seconds 22.5-36.0 H (BEAKER) (test code = 760) PROTHROMBIN [id number] 03:09:00 Test Item Value Reference Range Interpretation Comments PROTIME (BEAKER) (test code = 16.4 seconds 11.7-14.7 H 759) INR (BEAKER) (test code = 370) 1.3 <=5.9 RECOMMENDED COUMADIN/WARFARIN INR THERAPY RANGESSTANDARD DOSE: 2.0 - 3.0 Includes: PROPHYLAXIS forvenous thrombosis, systemic embolization; TREATMENT for venous thrombosis and/or pulmonary embolus.HIGH RISK: Target INR is 2.5-3.5 for patients with mechanical heart valves.[id number] 03:09:00 Test Item Value Reference Range Interpretation Comments FIBRINOGEN LEVEL (BEAKER) (test 413 mg/dl 225-434 code = 658) CBC W/PLT COUNT & AUTO [id number] 03:09:00 Test Item Value Reference Range Interpretation [...] L 0.00-0.20 (test code = 417) 0.00POCT-GLUCOSE [id number] 22:33:00 Test Item Value Reference Range Interpretation Comments POC-GLUCOSE METER 230 mg/dL 70-110 H TESTED AT [facility] 6720 [facility] (test code = [place] 1538) [address] POCT-GLUCOSE [id number] 18:17:00 Test Item Value Reference Range Interpretation Comments POC-GLUCOSE METER 222 mg/dL 70-110 H TESTED AT [facility] 6720 ([facility]) (test code = [facility] 1538) [address] COMPREHENSIVE METABOLIC [id number] 16:59:00 Test Item Value Reference Range Interpretation [...] PATIEN TS. PERIPHERAL BLOOD SMEAR - PATHOLOGIST [id number] 15:30:00 Test Item Value Reference Range Interpretation Comments RBC MORPHOLOGY Polychromasia (BEAKER) (test code = 3196) RBC MORPHOLOGY Anisocytosis (BEAKER) (test code = 38423) PERIPHERAL SMR REVIEW Cell counts confirmed (BEAKER) (test code = 3349) [id number] Josefina Lara M.D. ([facility]) (test code = (electronic signature) 9966) PROTHROMBIN [id number] 15:12:00 Test Item Value Reference Range Interpretation [...] Range Interpretation Comments ANTI-NUCLEAR ANTIBODY (IVETTE) ([facility]) Negative Negative (test code = 418) POCT-GLUCOSE [id number] 12:47:00 Test Item Value Reference Range Interpretation Comments POC-GLUCOSE METER 212 mg/dL 70-110 H TESTED AT [facility] 6720 ([facility]) (test code = [place] [facility] 1538) [address] [id number] 12:34:00 Test Item Value Reference Range Interpretation Comments RPR SCREEN ([facility] (test code = Nonreactive Nonreactive 420) CLOSTRIDIUM DIFFICILE TOXIN [id number] 10:12:00 Test Item Value Reference Range Interpretation Comments CLOSTRIDIUM DIFFICILE TOXIN, PCR Not Detected Not Detected ([facility]) (test code = 1525) This qualitative real-time [...] Reference Range Change-Adult onlyNew: 60.0-150.0 Previous: 50.0-150.0POCT-GLUCOSE [id number] 06:40:00 Test Item Value Reference Range Interpretation Comments POC-GLUCOSE METER 167 mg/dL 70-110 H TESTED AT [facility] 6720 ([facility]) (test code = [place] [facility] 1538) [address] COMPREHENSIVE METABOLIC [id number] 04:08:00 Test Item Value Reference Range Interpretation Comments TOTAL PROTEIN 4.7 gm/dL 6.0-8.3 L ([facility]) (test code = 770) ALBUMIN ([facility]) 2.1 g/dL 3.5-5.0 L (test code = 1145) ALKALINE PHOSPHATASE 71 U/L 40-150 ([facility]) (test code = 346) BILIRUBIN TOTAL 2.6 mg/dL 0.2-1.2 H ([facility]) (test code = 377) SODIUM (BEAKER) 140 [...] ESTIM ATED GFR. Specimen slightly ictericHEPATIC FUNCTION [id number] 04:06:00 Test Item Value Reference Range Interpretation [...] 1091 U/L 6-55 H 347) Specimen slightly [id number] 04:01:00 Test Item Value Reference Range Interpretation Comments FIBRINOGEN LEVEL (BEAKER) (test 379 mg/dl 225-434 code = 658) [id number] 04:01:00 Test Item Value Reference Range Interpretation Comments PARTIAL THROMBOPLASTIN TIME 40.7 seconds 22.5-36.0 H (BEAKER) (test code = 760) PROTHROMBIN [id number] 04:00:00 Test Item Value Reference Range Interpretation [...] L 0.00-0.20 (test code = 417) 0.00POCT-GLUCOSE [id number] 00:19:00 Test Item Value Reference Range Interpretation Comments POC-GLUCOSE METER 159 mg/dL 70-110 H TESTED AT [place] [address] ([facility] (test code = [facility] 1538) [address] POCT-GLUCOSE [id number] 18:56:00 Test Item Value Reference Range Interpretation Comments POC-GLUCOSE METER 192 mg/dL 70-110 H TESTED AT [place] [address] ([facility]) (test code = [facility] 1538) [address] COMPREHENSIVE METABOLIC [id number] 16:55:00 Test Item Value Reference Range Interpretation [...] CALCULATE ESTIM ATED GFR. Specimen slightly ictericPROTHROMBIN [id number] 16:37:00 Test Item Value Reference Range Interpretation Comments PROTIME (BEAKER) (test code = 20.9 seconds 11.7-14.7 H 759) INR (BEAKER) (test code = 370) 1.8 <=5.9 RECOMMENDED COUMADIN/WARFARIN INR THERAPY RANGESSTANDARD DOSE: 2.0 - 3.0 Includes: PROPHYLAXIS forvenous thrombosis, systemic embolization; TREATMENT for venous thrombosis and/or pulmonary embolus.HIGH RISK: Target INR is 2.5-3.5 for patients with mechanical heart valves.HEPATITIS B SURFACE [id number] 14:05:00 Test Item Value Reference Range Interpretation Comments HEPATITIS B SURFACE ANTIBODY < mIU/mL <8.0 (BEAKER) (test code = 647) HEPATITIS B CORE ANTIBODY, [id number] 13:43:00 Test Item Value Reference Range Interpretation Comments HEPATITIS B CORE TOTAL ANTIBODY Nonreactive Nonreactive (BEAKER) (test code = 497) BLOOD GAS, [id number] 13:35:00 Test Item Value Reference Range Interpretation [...] code = 1819) 28.0 % URINALYSIS W/ [id number] 13:16:00 Test Item Value Reference Range Interpretation [...] 1584) SOURCE(BEAKER) (test code = Urine, [place] 4053) VITAMIN D, 36-[id number] 13:14:00 Test Item Value Reference Range Interpretation Comments VITAMIN D 25-OH (BEAKER) (test code = < ng/mL 13.0-47.8 L 6274) ALPHA FETOPROTEIN (AFP), TUMOR [id number] 13:06:00 Test Item Value Reference Range Interpretation Comments ALPHA-FETOPROTEIN (BEAKER) (test code < ng/mL <10.0 = 1094) Effective 05/08/2014: Reference Range ChangeNew: <10.0 Previous: 0.0-8.0 HEMOGLOBIN [id number] 13:05:00 Test Item Value Reference Range Interpretation Comments HEMOGLOBIN A1C (BEAKER) (test code = 7.6 % 4.3-6.1 H 368) CARCINOEMBRYONIC ANTIGEN (CEA)2017-01-03 12:59:00 Test Item Value Reference Range Interpretation Comments CARCINOEMBRYONIC ANTIGEN (BEAKER) 2.0 ng/mL 0.0-5.0 (test code = 685) [id number] 12:59:00 Test Item Value Reference Range Interpretation Comments FERRITIN (BEAKER) (test code = 1841 ng/mL 5-275 H 361) Effective 05/08/2014: Reference Range ChangeNew: Male 5-275 Previous: Male 22-322 Female 5-275 Female [id number] 12:58:00 Test Item Value Reference Range Interpretation Comments T4 TOTAL (BEAKER) (test code = 895) 4.5 ug/dL 4.9-11.7 L [id number] 12:58:00 Test Item Value Reference Range Interpretation Comments THYROID STIMULATING HORMONE 1.79 uIU/mL 0.35-4.94 (BEAKER) (test code = 772) [id number] 12:58:00 Test Item Value Reference Range Interpretation Comments T3 TOTAL (BEAKER) (test code = 656) 34 ng/dL 48-159 L Effective 05/08/2014: Reference Range ChangeNew: 48-159 Previous: 60-181 CALCIUM, [id number] 12:47:00 Test Item Value Reference Range Interpretation Comments CALCIUM IONIZED (BEAKER) (test 1.05 mmol/L 1.12-1.27 L code = 698) PH, BLOOD (BEAKER) (test code = 7.43 1810) [id number] 12:42:00 Test Item Value Reference Range Interpretation [...] % 20-55 (test code = 2590) URIC [id number] 12:40:00 Test Item Value Reference Range Interpretation Comments URIC ACID (BEAKER) (test code = 16.0 mg/dL 2.6-7.2 H 773) Specimen slightly ictericLIPID [id number] 12:40:00 Test Item Value Reference Range Interpretation [...] 160-189 Very High >=190 Specimen slightly ictericBILIRUBIN, [id number] 12:40:00 Test Item Value Reference Range Interpretation Comments BILIRUBIN DIRECT (BEAKER) (test 2.4 mg/dL 0.1-0.5 H code = 706) GAMMA GLUTAMYL TRANSFERASE (GGT)2017-01-03 12:40:00 Test Item Value Reference Range Interpretation Comments GAMMA GLUTAMYL TRANSFERASE (BEAKER) 53 U/L 9-64 (test code = 364) Specimen slightly ynavrlcTSZDPPE1899-21-63 12:39:00 Test Item Value Reference Range Interpretation Comments ETHANOL (BEAKER) (test code = 400) < mg/dL <=10 SCREEN, [id number] 12:36:00 Test Item Value Reference Range Interpretation Comments TEST URINE (BEAKER) (test Negative code = 583) POCT-GLUCOSE [id number] 12:34:00 Test Item Value Reference Range Interpretation Comments POC-GLUCOSE METER 189 mg/dL 70-110 H TESTED AT [facility] [address] ([facility]) (test code = [place] 1538) [address] HIV-1 ANTIGEN WITH HIV-1/2 [id number] 11:58:00 Test Item Value Reference Range Interpretation Comments HIV-1 ANTIGEN WITH HIV 1\\T\\2 Nonreactive Nonreactive ANTIBODY (2) ([facility]) (test code = 2586) TROPONIN [id number] 09:44:00 Test Item Value Reference Range Interpretation Comments TROPONIN I (AKER) (test code = 0.34 ng/mL 0.00-0.03 HH [...] Reference Range Interpretation Comments CREATINE KINASE TOTAL ([facility]) 301 U/L 29-200 H (test code = 380) CREATINE KINASE-MB ([facility]) (test 5.6 ng/mL 0.0-6.6 code = 750) CREATINE KINASE-MB INDEX ([facility]) 1.9 % (test code = 395) Effective 05/08/2014: CK-MB Reference Range ChangeNew: 0.0-6.6 Previous: 0.0-4.9CK-MB Reference Range:<6.7 Normal6.7-10.0 Borderline>10.0 AbnormalACETAMINOPHEN [id number] 08:31:00 Test Item Value Reference Range Interpretation Comments ACETAMINOPHEN LEVEL ([facility]) (test < ug/mL 10.0-30.0 L code = 344) TROPONIN [id number] 05:53:00 Test Item Value Reference Range Interpretation [...] acute neurological disease, and persistent tachyarrhythmia.BASIC METABOLIC [id number] 05:53:00 Test Item Value Reference Range Interpretation [...] TO CALCULA TE ESTIMATED GFR. Specimen slightly ozpnpqgDUBNJCNPXN3570-17-57 05:52:00 Test Item Value Reference Range Interpretation Comments PHOSPHORUS (BEAKER) (test code = 5.7 mg/dL 2.3-4.7 H 604) HEPATIC FUNCTION [id number] 05:52:00 Test Item Value Reference Range Interpretation [...] Specimen slightly ictericCREATINE KINASE (CK), TOTAL AND [id number] 05:52:00 Test Item Value Reference Range Interpretation Comments CREATINE KINASE TOTAL (BEAKER) 341 U/L 29-200 H (test code = 380) CREATINE KINASE-MB (BEAKER) (test 5.4 ng/mL 0.0-6.6 code = 750) CREATINE KINASE-MB INDEX (BEAKER) 1.6 % (test code = 395) Effective 05/08/2014: CK-MB Reference Range ChangeNew: 0.0-6.6 Previous: 0.0-4.9CK-MB Reference Range:<6.7 Normal6.7-10.0 Borderline>10.0 AbnormalCBC W/PLT COUNT & AUTO [id number] 05:48:00 Test Item Value Reference Range Interpretation [...] K/ L 0.00-0.20 (test code = 417) 0.50FWFSMBLONG7499-13-89 05:09:00 Test Item Value Reference Range Interpretation Comments FIBRINOGEN LEVEL (BEAKER) (test 427 mg/dl 225-434 code = 658) [id number] 05:09:00 Test Item Value Reference Range Interpretation Comments PARTIAL THROMBOPLASTIN TIME 36.2 seconds 22.5-36.0 H (BEAKER) (test code = 760) PROTHROMBIN TIME/[id number] 05:08:00 Test Item Value Reference Range Interpretation Comments PROTIME (BEAKER) (test code = 22.8 seconds 11.7-14.7 H 759) INR (BEAKER) (test code = 370) 2.0 <=5.9 RECOMMENDED COUMADIN/WARFARIN INR THERAPY RANGESSTANDARD DOSE: 2.0 - 3.0 Includes: PROPHYLAXIS forvenous thrombosis, systemic embolization; TREATMENT for venous thrombosis and/or pulmonary embolus.HIGH RISK: Target INR is 2.5-3.5 for patients with mechanical heart valves.HEPATITIS PANEL, [id number] 03:40:00 Test Item Value Reference Range Interpretation Comments HEPATITIS A IGM ANTIBODY (BEAKER) Nonreactive Nonreactive (test code = 498) HEPATITIS B CORE IGM ANTIBODY Nonreactive Nonreactive (BEAKER) (test code = 645) HEPATITIS C ANTIBODY (BEAKER) Nonreactive Nonreactive (test code = 367) HEPATITIS B SURFACE ANTIGEN (2) Nonreactive Nonreactive (BEAKER) (test code = 2585) CREATININE, RANDOM [id number] 03:18:00 Test Item Value Reference Range Interpretation Comments CREATININE URINE (BEAKER) (test 118.7 mg/dL code = 375) Reference Range: No NormalsSODIUM, RANDOM [id number] 03:18:00 Test Item Value Reference Range Interpretation Comments SODIUM URINE (BEAKER) (test code = 60 meq/L 243) Reference Range: No NormalsUREA NITROGEN, RANDOM [id number] 03:18:00 Test Item Value Reference Range Interpretation Comments UREA NITROGEN URINE (BEAKER) (test 303 mg/dL code = 538) Reference Range: No [id number] 03:07:00 Test Item Value Reference Range Interpretation Comments AMMONIA (BEAKER) (test code = 348) 48 mol/L 18-72 H-[id number] 02:57:00 Test Item Value Reference Range Interpretation [...] within 95-100% range. URINALYSIS W/ REFLEX URINE [id number] 02:53:00 Test Item Value Reference Range Interpretation [...] = 514) SOURCE(BEAKER) (test code = 2795) [id number] 02:49:00 Test Item Value Reference Range Interpretation Comments PARTIAL THROMBOPLASTIN TIME 39.4 seconds 22.5-36.0 H (BEAKER) (test code = 760) PROTHROMBIN TIME/[id number] 02:48:00 Test Item Value Reference Range Interpretation Comments PROTIME (BEAKER) (test code = 22.0 seconds 11.7-14.7 H 759) INR (BEAKER) (test code = 370) 1.9 <=5.9 RECOMMENDED COUMADIN/WARFARIN INR THERAPY RANGESSTANDARD DOSE: 2.0 - 3.0 Includes: PROPHYLAXIS forvenous thrombosis, systemic embolization; TREATMENT for venous thrombosis and/or pulmonary embolus.HIGH RISK: Target INR is 2.5-3.5 for patients with mechanical heart valves.[id number] 02:48:00 Test Item Value Reference Range Interpretation Comments FIBRINOGEN LEVEL (BEAKER) (test 421 mg/dl 225-434 code = 658) BLOOD GAS, [id number] 02:43:00 Test Item Value Reference Range Interpretation [...] 21.0 % CBC W/PLT COUNT & AUTO [id number] 02:43:00 Test Item Value Reference Range Interpretation [...] code = 417) 0.00LACTIC ACID, VENOUS, WHOLE [id number] 02:35:00 Test Item Value Reference Range Interpretation Comments LACTATE BLOOD VENOUS (2) (BEAKER) 0.8 mmol/L 0.5-2.2 (test code = 2872) Effective 10/23/2015: Units/Reference Range ChangeNew: 0.5-2.2 mmol/L Previous: 5-20 mg/dLSpecimen slightly jabfeogOCAXFEVXIFPS9492-36-45 11:32:0014.6[facility] HixgkcmRFNACHSECVRA1610-73-96 11:32:0033[facility] MxmhylvCJLSHMXFMASV8767-12-31 11:32:008.3[facility] QerpngwPPIWMDAFSHPD4522-22-25 11:32:0081[facility] [place] CGGMSBCITWQI8430-73-45 11:32:001.95[facility] PfiqazzMEOGRAXWIGEU0385-36-47 11:32:0055[facility] DxncqjhCNLWMEQRBISQ3517-01-25 11:32:0019[facility] OSXNQGWMUASH4113-34-91 11:32:02699Hfdlcwrz GjvsyfoBDDNUUHUTWBU0199-87-03 11:32:73741Pozugdsh QiprkbzFXOLFLQTNILM4534-07-86 11:32:004.6[facility] EKYWSIJRHX8862-58-91 11:32:0030.4[facility] SysnevmSXRBYURBKT5845-20-14 11:32:00 4.5[facility] AzunyvbPVQRPVEPGI8754-25-25 11:32:0013.7[facility] HermannHEMATOLOGY 2016-07-30 11:32:002.6[facility] NwmzneqMTWANIKSBB0565-16-47 11:32:000.7[facility] UmueliaXUTXXRKNRZ4975-93-48 11:32:000.7[facility] OatxemzQOTWLQHXLA0464-44-71 11:32:001.6[facility] PmybpqwUBBKWDGCFV9487-64-54 11:32:000.2[facility] Vin QFSGUJFEHS6472-10-22 11:32:0050.7[facility] QavjiwlLPPIDRCHGH7498-14-09 11:32:00 28.1[facility] RgwrqjjFDYRUAKIDC5024-12-27 11:32:003.39[facility] HermannHEMATOLOGY 2016-07-30 11:32:008.9[facility] CpbcqwlADJBFTRPXW0923-41-49 11:32:005.1[facility] RahsvknQMWNWEKGXC9629-51-86 11:32:0011.3[facility] RnyetsaPKORYKQVYP5064-33-57 11:32:59969Xryfepca EognssjKCJEBZUSXO8186-54-99 11:32:0031.8[facility] SRAQVXNUDV1618-49-83 11:32:0018.0[facility] VvmtpsfGNKZEDGKTD1782-38-28 11:32:00 83.0[facility] WqlsukzTKFBPXVQWF7490-34-66 11:32:00 Test Item Value Reference Range Interpretation Comments MCH (test code = MCH) 26.4 pg 27.0-31.0 [facility] TlaivieLEILQQYYWA4919-94-59 11:32:79145Pdzixxqy HermannIMMUNOLOGY 2016-07-30 11:32:00Negative *NA*(07/30/16 5:32 AM)[facility] HermannIMMUNOLOGY 2016-07-29 11:05:00Negative *NA*(07/29/16 5:05 AM)[facility] HermannIMMUNOLOGY 2016-07-29 11:05:0092[facility] HermannCHEM WZTQI6770-16-18 15:50:0025[facility] HermannCHEM NKQCO2680-80-20 15:50:0055[facility] HermannCHEM BMDIE4367-56-33 15:50:0023[facility] HermannCHEM IRKLS0657-74-21 15:50:95493Uiqsjzyi HermannCHEM BUHVS5666-75-26 15:50:44596Vnkumhxh HermannCHEM LZGPG6239-13-46 15:50:004.0 [facility]annCHEM TIRAP0277-87-64 15:50:11775Uddnqxhy HermannCHEM PANEL 2016-07-28 15:50:0013.0[facility] HermannCHEM YCWLJ6161-69-64 15:50:007.7[facility] HermannCHEM XAPBJ0083-60-69 15:50:002.49[facility] AkqpepcUGWNJMWYQS9142-10-72 15:50:00 Test Item Value Reference Range Interpretation Comments PT (test code = PT) 14.8 s 12.0-14.7 [facility] GeqdxuiHVCUDBMCWX4011-99-92 15:50:00 Test Item Value Reference Range Interpretation Comments PTT (test code = PTT) 40.8 s 22.9-35.8 [facility] RdkidkoOCAZWCZWJA3415-98-36 15:50:001.14[facility] HermannIMMUNOLOGY 2016-07-28 15:50:0094[facility] QjaiktbSFCKWUOWZK5469-51-68 10:35:001.7[facility] BhvgcgjWDHTAWGRLP6962-64-43 10:35:002.7[facility] KwfflgvWYGBGGVWZJ9738-21-51 10:35:000.1[facility] JyrscdsYAABKSFQDK5769-80-51 10:35:000.7[facility] TIXBERIWDF4465-99-86 10:35:0051.3[facility] MivmwxcWSRNNEJRFD5176-00-09 10:35:00 31.6[facility] XhitntmERJVKZXUQN2361-81-56 10:35:0014.1[facility] HermannHEMATOLOGY 2016-07-28 10:35:002.6[facility] SmzxeapHUSDJPEULX7393-30-66 10:35:000.4[facility] RprdmwnYTNDQTHQXL3385-45-57 10:35:0029.3[facility] HatzsxvEFMQOOOMVU6658-16-58 10:35:009.2[facility] LzuxakmARWDDQAGNH8850-63-69 10:35:003.54[facility] RWQEPRPDSJ0916-35-08 10:35:005.3[facility] DrefwclNODZTNRBBY0012-87-78 10:35:0087 [facility] ZzpkeaiLQUNYMBRPZ5701-52-23 10:35:0031.4[facility] HermannHEMATOLOGY 2016-07-28 10:35:0017.9[facility] RxdbgxsJQMADOQQYZ7817-22-70 10:35:0010.9[facility] KpgplhtJANAYGAROM6529-36-22 10:35:00 Test Item Value Reference Range Interpretation Comments MCH (test code = MCH) 26.0 pg 27.0-31.0 [facility] XizfbfgRPGXNDICJK7258-29-90 10:35:0082.8[facility] HermannIMMUNOLOGY 2016-07-28 10:35:00Negative *NA*(07/28/16 4:35 AM)[facility] HermannCARDIAC ENZYMES 2016-07-27 10:22:81184Qzmntjzi HermannCHEM HWTFQ4490-02-62 10:22:007.8[facility] HermannCHEM MXYJX0494-82-31 10:22:0021[facility] HermannCHEM OMQVV0058-61-75 10:22:16301Wbrpkmhs HermannCHEM BTZDH8388-91-48 10:22:003.8[facility] HermannCHEM WQWIL6805-44-44 10:22:23832Slpgvtny HermannCHEM OJDJH0556-37-20 10:22:000.4 [facility]annCHEM RSCVR1786-19-48 10:22:0074[facility] HermannCHEM PANEL 2016-07-27 10:22:0019[facility] HermannCHEM PUXGS9585-31-94 10:22:005.2[facility] HermannCHEM UFVBN6194-38-57 10:22:15383Fhujunxp HermannCHEM HLIVM4769-96-68 10:22:05117Geyslrbm HermannCHEM RBJYU1480-18-51 10:22:001.8[facility] HermannCHEM ERUCJ3625-81-36 10:22:0054[facility] HermannCHEM XTSQG7983-98-63 10:22:90902 [facility]annCHEM SHCNX6069-39-65 10:22:003.11[facility] HermannCHEM PANEL 2016-07-27 10:22:0017[facility] HermannCHEM EAOSC2145-80-65 10:22:0016.8[facility] HermannCHEM QPPFI6415-93-40 10:22:003.4[facility] HermannCHEM ZRNPI4284-04-89 10:22:000.5[facility] HermannCHEM SPTDQ1074-92-53 10:22:002.0[facility] HermannCHEM XBDIO3057-97-68 10:22:003.7[facility] UsnyqcpAJXJGPVNHS7525-67-45 10:22:0017.7 [facility] TqblnhkWIXTJBCBBB8319-18-82 10:22:0032.9[facility] HermannHEMATOLOGY 2016-07-27 10:22:0025.4[facility] HkhdxgnQYIVGTAFRS6521-26-27 10:22:00 Test Item Value Reference Range Interpretation Comments MCH (test code = MCH) 26.4 pg 27.0-31.0 [facility] CnehkcdZMEZEZAHLT2754-26-79 10:22:0080.3[facility] HermannHEMATOLOGY 2016-07-27 10:22:0011.4[facility] LruebtpHYWAWVIEPC1572-30-83 10:22:0074[facility] EhzhybuXYGEWHJOBW1090-98-83 10:22:003.16[facility] CyokqgaXQVXOSZCMI4483-53-61 10:22:005.3[facility] UtaexufCQRYEEUCYL2511-02-53 10:22:008.4[facility] JQGMQQFVGK1443-78-73 10:22:0014.5[facility] JprpzjtLHFINWDZQN4546-51-38 10:22:00 29.8[facility] CdufxvpWCGGGLTARJ2398-84-95 10:22:000.1[facility] HermannHEMATOLOGY 2016-07-27 10:22:000.8[facility] GczfcrkZNNBAKWEHO8573-01-78 10:22:002.9[facility] ZdpauiaYDANCHZHOZ0282-62-14 10:22:001.6[facility] TbydcisEILEBPVILV8077-42-54 10:22:000.4[facility] XcdiozmOYZFAHTEQA0749-30-58 10:22:001.2[facility] AIHGWZPAQM0378-78-74 10:22:0054.1[facility] HermannSPECIAL QWEHLOTWQ1649-67-58 10:22:008.9[facility] HermannCARDIAC IDTKKLG0061-00-79 17:40:63050Aftdylpt [place] YDFSBEBCWL1547-43-65 17:40:00Positive *ABN*(07/26/16 11:40 AM)[facility] TBEQAEWKCY3545-91-32 17:40:00<0.2[facility] EufghmxIKNHMCLDSX8518-39-92 17:40:00<0.2[facility] MumxlqxMSJIXRSMXC0869-19-05 17:40:00<0.2[facility] QaigqrkIXIYZXXXJD1949-24-84 17:40:00<0.2[facility] IgmiddoAFSGSMQQUR8996-32-62 17:40:00Negative (07/26/16 11:40 AM)[facility] CaptosgRRMSQGGZKA1606-90-02 17:40:00 1:40 *ABN*(07/26/16 11:40 AM)[facility] HermannURINE ZNSO6244-67-98 17:40:0021 [facility] QzhjgyrDZIABJAPRF3101-51-38 14:00:001.11[facility] HermannHEMATOLOGY 2016-07-26 14:00:00 Test Item Value Reference Range Interpretation Comments PT (test code = PT) 14.5 s 12.0-14.7 [facility] KgyboulCCIEGHSZUC7512-52-89 14:00:00Negative *NA*(07/26/16 8:00 AM) [facility] EgbyahoSZAXVNIUJG4611-63-69 14:00:00Negative *NA*(07/26/16 8:00 AM) [facility] ZjpaoieFGENOQYXZH7093-53-49 14:00:00Negative *NA*(07/26/16 8:00 AM) [facility] QqwmmxfVPFAZRSAIF3571-20-06 14:00:00Negative *NA*(07/26/16 8:00 AM) [facility] HermannCHEM KEXNQ8697-88-50 10:42:0017[facility] HermannCHEM PANEL 2016-07-26 10:42:356343Eddwbkbv HermannCHEM NNCKG8239-45-50 10:42:000.5[facility] HermannCHEM GEMAD8604-83-25 10:42:000.3[facility] HermannCHEM XXCJP6993-61-13 10:42:0079[facility] HermannCHEM MGIIH7106-66-11 10:42:46678Qmktncks HermannCHEM TDYBR6581-28-50 10:42:005.5[facility] HermannCHEM XGMYP0550-88-63 10:42:003.7 [facility] HermannCHEM LQRXR2617-85-22 10:42:001.8[facility] HermannCHEM PANEL 2016-07-26 10:42:002.1[facility] HufygpkLQHLBSDZHJ7003-17-55 10:42:00Present *ABN*(07/26/16 4:42 AM)[facility] UdguakyHMRRDMQVEB3121-93-94 10:42:001+ *ABN*(07/26/16 4:42 AM)[facility] KzkamwiOHZOZHAXLR5412-57-69 10:42:000.1[facility] VpqkifcWVYREGAMRZ3906-59-85 10:42:00Moderate *ABN*(07/26/16 4:42 AM)[facility] YjhsdllKKRDKQBAFX3174-82-42 10:42:0042[facility] HermannURINE AND CZALX9828-86-53 16:34:001[facility]annURINE AND EPMZE3525-17-13 16:34:004[facility] [place] URINE AND SQQPZ5252-65-69 16:34:00Negative (07/25/16 10:34 AM)[facility] URINE AND VUSBG1067-86-70 16:34:00Negative (07/25/16 10:34 AM)[facility] URINE AND BONYH2217-74-04 16:34:002[facility]annURINE AND WWNPD6208-74-96 16:34:006[facility]annURINE AND KNQFY6636-21-13 16:34:002.0[facility] URINE AND KOZNG7091-46-08 16:34:00Negative (07/25/16 10:34 AM)[facility] URINE AND BCVBX1518-70-38 16:34:00Negative *NA*(07/25/16 10:34 AM)[facility] URINE AND BBSYT5455-83-89 16:34:001.012[facility]annURINE AND QBBNF9647-24-30 16:34:005.5[facility]annUR[facility] AND KUOKU7242-50-46 16:34:00Slight *ABN*(07/25/16 10:34 AM)[facility]annUR[facility] AND JNSRU5787-93-31 16:34:00Dark Yellow *NA*(07/25/16 10:34 AM)[facility]UR[facility] AND MGEUF9529-66-33 16:34:009 [facility]annURINE WAKG8510-86-28 16:34:0030[facility]annURINE CHEM 2016-07-25 16:34:003.1[facility]annURINE MYSR2339-28-31 16:34:11466.9[facility]annURINE DDEY3356-37-67 16:34:90455.00[facility] HermannCHEM KQVMO5387-06-09 08:55:002.0[facility] HermannCHEM JNETY6564-64-58 08:55:005.2[facility] CARDIAC XZWHTBC8913-44-02 17:29:000.28[facility] HermannCARDIAC GPDQPAX9253-10-07 17:29:570267Wzylukuc HermannCARDIAC PTFRGVL5710-61-20 17:29:000.144[facility] HermannCARDIAC CZUUQEJ5909-23-81 17:29:000.2[facility] HermannCARDIAC ENZYMES 2016-07-24 17:29:006.3[facility] HermannCARDIAC XLXCPME9735-50-41 11:20:000.38 [facility]annCARDIAC CIMNHLJ6972-81-51 11:20:000.173[facility] HermannCARDIAC BEKPBVS5284-18-76 11:20:000.2[facility] HermannCARDIAC UUXVKOD9547-68-94 11:20:00 5.6[facility] HermannCHEM YELMZ3702-55-32 11:20:005.5[facility] HermannCARDIAC ZJECETG0506-12-81 06:18:69983Calnpkvx HermannCARDIAC WOGOQYZ4598-80-21 04:59:27 0.57[facility] HermannCARDIAC RSCZYVI2760-36-93 10:22:03453Kdrmjuyw HermannCHEM JNBHR1364-03-64 10:22:002.1[facility] HermannCHEM MXLPS7030-42-03 10:22:86395 [facility]annCHEM UFVNW4217-26-65 10:22:0041[facility] HermannCHEM PANEL 2016-06-15 10:22:002.00[facility] HermannCHEM BTMCS0831-47-88 10:22:009.0[facility] HermannCHEM KBBNQ2782-78-88 10:22:58204Ukedfivs HermannCHEM NFIBM3458-88-41 10:22:0033[facility] HermannCHEM ZTWHR9255-74-34 10:22:53871Pnctnrzj HermannCHEM LNFRC2276-14-11 10:22:004.0[facility] HermannCHEM NUHNX0230-18-25 10:22:0032 [facility]annCHEM PWTVQ3462-52-24 10:22:0013.0[facility] HermannCHEM PANEL 2016-06-15 10:22:004.6[facility] SlssgnjIURHIENQIX8856-42-20 10:22:003.68[facility] UvgtrabNAWDFAYHEK0233-19-79 10:22:009.9[facility] LkyhlskFQMBVVECEY1160-62-10 10:22:00 Test Item Value Reference Range Interpretation Comments MCH (test code = MCH) 26.8 pg 27.0-31.0 [facility] LtbsanrIFNPNHFOJK7767-68-32 10:22:0034.2[facility] HermannHEMATOLOGY 2016-06-15 10:22:0078.3[facility] EuhmtsnITHMVZADAD8041-81-78 10:22:0028.8[facility] SynooirSUPSSIGVOS0287-60-32 10:22:52175Zuhvenqe RoowlcfNWBEKVIUGF5329-31-34 10:22:009.5[facility] BoponfhQQYNSKXMVS8115-94-13 10:22:0015.3[facility] LWDBSRYFQL1746-48-29 10:22:005.6[facility] OyctwjyYOQQZAMVPR6668-76-72 10:22:000.5 [facility] ZybklivPYIXEOAFTW0396-67-70 10:22:001+ *ABN*(06/15/16 4:22 AM)[facility] AsphkdxTISJCKZXKY7103-61-18 10:22:000.1[facility] CekqkhaOVXQVIBNNU6712-01-16 10:22:0033.5[facility] RhfohpsZGVKOTYLWN8129-10-50 10:22:0047.6[facility] [place] ANQKWUFWJF6718-19-41 10:22:008.4[facility] XcigeiqOHJILZEASC9268-42-63 10:22:009.4 [facility] HzmvbkpHOIYDXLSJK0209-92-68 10:22:002.6[facility] HermannHEMATOLOGY 2016-06-15 10:22:001.9[facility] JudupyyVQUKNMXVQS7658-14-39 10:22:001.1[facility] QqvfblbQUOMKKMTCZ1368-48-18 10:22:000.5[facility] HermannCHEM FPJJC0105-95-91 11:03:004.8[facility] HermannCHEM BKUWD5346-04-18 11:03:002.0[facility]annCHEM LSIRG0600-15-56 11:03:0032[facility]annCHEM YQATI1096-54-31 11:03:44468 [facility]annCHE[facility] MFYOG1037-60-31 11:03:004.4[facility]annCHEM PANEL 2016-06-14 11:03:0037[facility]annCHEM BPRBT5956-80-37 11:03:00701Olbollks HermannCHEM WNDHD9859-39-22 11:03:002.00[facility]annCHEM VFPYO7749-33-35 11:03:57383Fhrpvzfl HermannCHEM HHSHI4617-32-64 11:03:008.7[facility]annCHEM HSSKA7760-55-13 11:03:0032[facility]annCHEM VJRCW6650-33-15 11:03:0013.4 [facility] TsgbtefRVXJSGFYMK6756-22-04 11:03:0010.3[facility]annHEMATOLOGY 2016-06-14 11:03:000.1[facility] ZkfvxfyMSWYTDFNIS6277-09-52 11:03:000.5[facility] BbztykmUCFTBOVLTX1637-13-38 11:03:000.5[facility] RegupnrGSXDBTELYD7610-09-75 11:03:002.1[facility] XizdaabNWFHHTWPUA0238-38-18 11:03:001.2[facility] Vin LPSEPYIKHY8626-19-39 11:03:001.9[facility] XjipjwwGBURKPRVHP9144-69-61 11:03:00 42.5[facility] DsmauxyABJVNKSWLT2900-14-16 11:03:0037.0[facility]annHEMATOLOGY 2016-06-14 11:03:009.0[facility] UlnarvhOAFBEBRDKN5181-54-05 11:03:009.8[facility] GzwmefoSAIXQAZGLX4803-21-32 11:03:005.0[facility] DzihhtyVAQKKOQIGY7270-45-07 11:03:003.57[facility] QvdjpqcWZSOFJARUH3319-58-53 11:03:009.4[facility] Vin OACLWLUJJC3797-85-23 11:03:0028.5[facility] QmrwuneEGUDZTECWL2553-65-87 11:03:00 183[facility] DjbwwxrQQTYGMKTNH4575-73-68 11:03:0079.9[facility]annHEMATOLOGY 2016-06-14 11:03:00 Test Item Value Reference Range Interpretation Comments MCH (test code = MCH) 26.3 pg 27.0-31.0 [facility] EedgaijFOLUYKDQHN0060-38-49 11:03:0033.0[facility]annHEMATOLOGY 2016-06-14 11:03:0015.9[facility] HermannURINE BDWN0011-15-37 10:26:006.9[facility]annURINE RGIU1823-40-66 10:26:0019.30[facility]annURINE FOYF4607-10-39 10:26:12529.1[facility] QsurjbnSTZSBMAVQV8665-46-10 09:20:009.7[facility] [place] PDCVYMIXTU3785-36-13 09:20:38449Yschwtxq TqgrpebQZMTAOSCKJ2583-30-59 09:20:00 15.9[facility] EteqawdEYPUBISUCJ1271-13-04 09:20:0079.3[facility]annHEMATOLOGY 2016-06-13 09:20:0033.0[facility] UbmaimsUNDJREOJNO6871-33-52 09:20:00 Test Item Value Reference Range Interpretation Comments MCH (test code = MCH) 26.2 pg 27.0-31.0 [facility] RkhwawfHIJTDMYPBC6690-31-80 09:20:0029.4[facility]annHEMATOLOGY 2016-06-13 09:20:009.7[facility] CaotxxfUOQFWPAHSD8649-63-61 09:20:003.70[facility] HehgqhrHNZOXLBKLM7192-99-76 09:20:005.7[facility] WjaefelBFCVSYDBTT6654-80-50 09:20:000.1[facility] StvuckiNYYECLKLHL8741-17-16 09:20:002.2[facility] Vin XTLPBNFZUZ7436-17-85 09:20:000.5[facility] InpcsihOGNWSXDRMX4760-25-94 09:20:000.5 [facility] JaapydqGUXUTJBGWC3647-69-02 09:20:001.1[facility]annHEMATOLOGY 2016-06-13 09:20:002.3[facility] TsyutzcPJVFYQCGXV6852-40-87 09:20:009.5[facility] UrtcuoqYZYLXQZXAP9020-30-32 09:20:009.0[facility] WwjxtzgJOZEWXVTGI6616-92-99 09:20:0038.9[facility] RthorrfJKNGEUNNFR4075-95-70 09:20:0041.5[facility] CHEM XJYOD8877-60-34 06:34:001.7[facility] HermannCHEM MWRZW5919-07-53 06:34:004.2 [facility] IdhbptnMQGJZCEJVQOW1473-33-75 06:34:0014.3[facility] HermannELECTROLYTES 2016-06-13 06:34:0041[facility] WhxmiruTDQKLGDIGTRH2807-35-46 06:34:23138Edzudeor YwwsnycFMOLEGKSWVAI4792-49-52 06:34:008.5[facility] JrokexkGGOYWTBWXXPO7828-24-35 06:34:0032[facility] BytybtyEIQVXNTVQEVU2910-64-87 06:34:66930Zbmiqhrf Vin UVRUIXGJAWTQ0583-59-75 06:34:0037[facility] AopxgucTOLEIRLEQRME4647-60-85 06:34:00 1.63[facility] EaqtnogYWRQPICMHEOI7989-95-71 06:34:004.3[facility] Vin OXOCTMWURPTI1865-64-31 06:34:54213Cjjceask HermannCHEM REARO7987-52-97 16:21:00 48.0[facility] FfbaxthJRXSDKIFBB4044-48-48 14:56:001:40 *ABN*(06/11/16 8:56 AM) [facility] NwetbyoFFZSWTJUQX1057-61-48 14:56:00Negative *NA*(06/11/16 8:56 AM) [facility] YdzcsetHQJKPESGQK1291-57-14 14:56:00Negative *NA*(06/11/16 8:56 AM) [facility] GtobrnjVOQUMNKMNA2351-51-82 14:56:00Negative *NA*(06/11/16 8:56 AM) [facility] VxtzxchEKYTYNLNEU1355-12-85 14:56:00Negative *NA*(06/11/16 8:56 AM) [facility] PlljwtrPYVQNYUFYW5122-46-17 14:56:00Negative *NA*(06/11/16 8:56 AM) [facility] YbcfidaVBBAIZCSQJ6606-59-54 14:56:00Positive *ABN*(06/11/16 8:56 AM) [facility]annCHEM CINED0692-23-41 10:42:000.1[facility]annCHEM PANEL 2016-06-11 10:42:005.2[facility]annCHEM VPAKO8191-75-32 10:42:001.6[facility]annCHEM MNWYG6914-80-40 10:42:0020[facility]annCHEM LKJWZ2044-27-47 10:42:003.6[facility]annCHEM FKRUV4735-79-14 10:42:000.4[facility]annCHEM SEVBU3892-30-41 10:42:0074[facility]annCHEM LPFLF5172-68-60 10:42:0014 [facility]annCHEM BVVWX7330-35-56 10:42:0013[facility]annHEMATOLOGY 2016-06-11 10:42:001.06[facility] RpbrobzHVDSCIPFNU3925-51-73 10:42:00 Test Item Value Reference Range Interpretation Comments PT (test code = PT) 14.0 s 12.0-14.7 [facility] AvqrqacLUAHDMEGUH4015-34-85 10:42:00 Test Item Value Reference Range Interpretation Comments PTT (test code = PTT) 36.4 s 22.9-35.8 [facility]annSPECIAL QMGOPARRY2002-34-50 10:42:0010.5[facility] HermannCARDIAC CXDSKUE8480-73-42 02:08:001.8[facility] HermannCARDIAC QDAKNMT4790-15-35 02:08:00 2.9[facility]annCARDIAC RCEEAUW4697-70-47 02:08:000.061[facility] CARDIAC VCZXDIP2620-68-08 02:08:54254Jyhshtya HermannCARDIAC TSJCBBI1364-56-64 02:08:00<0.02[facility]annCHEM PBRSR8168-88-25 02:08:000.2[facility] CHEM PLHHZ2870-52-00 02:08:000.1[facility]annCHEM TXPDX3234-38-77 02:08:000.1 [facility]annCHE[facility] MTZSR7304-85-10 02:08:005.7[facility]annCHEM PANEL 2016-06-11 02:08:000.5[facility]annCHEM ARJBR9408-91-06 02:08:001.8[facility]annCHEM KQAEQ2959-56-84 02:08:003.9[facility]annCHEM KVKCE5315-10-74 02:08:0099[facility]annCHEM AHIYE9134-62-31 02:08:0021[facility]annCHEM VYLGM4619-30-34 02:08:0017[facility]annDRUG KNNSLR3586-08-91 02:08:00See Note *NA*(06/10/16 8:08 PM)[facility] YPXYFX4988-25-20 02:08:00Negative *NA*(06/10/16 8:08 PM)[facility]annDR[facility] MAZCTC1941-34-38 02:08:00Negative *NA*(06/10/16 8:08 PM)[facility]annDR[facility] BEELGD9468-55-44 02:08:00Negative *NA*(06/10/16 8:08 PM)[facility]annDR[facility] ZDBCBQ0121-88-86 02:08:00Negative *NA*(06/10/16 8:08 PM)[facility] QKGQJB1534-11-43 02:08:00Negative *NA*(06/10/16 8:08 PM)[facility] YXQMYN6140-80-39 02:08:00Negative *NA*(06/10/16 8:08 PM)[facility]DR[facility] PVAZFP3141-72-41 02:08:00Negative *NA*(06/10/16 8:08 PM)[facility] ANLDPF7203-74-63 02:08:00Negative *NA*(06/10/16 8:08 PM)[facility]annDR[facility] KVLYSZ8157-38-39 02:08:00Negative *NA*(06/10/16 8:08 PM)[facility] ItasvvoNAEIDS9410-54-11 02:08:0075[facility] HtksxcpIFKCMT7308-32-46 02:08:0027[facility] AdlumojSXGMBK2643-77-64 02:08:06174 [facility] EnfmrvpBBIMCK7784-75-73 02:08:57955Kpyvkojk JiyxcmzRFHANW5945-52-66 02:08:004.29[facility] OhkermsYCKEBT7025-04-24 02:08:0031[facility]annURINE AND VTKQZ4538-36-29 02:08:006.0[facility] AND LHKRQ0151-25-93 02:08:00 Negative (06/10/16 8:08 PM)[facility] LYBWY6240-98-47 02:08:00 Trace *ABN*(06/10/16 8:08 PM)[facility] RDCLN7875-40-67 02:08:00 Negative *NA*(06/10/16 8:08 PM)[facility] SQMIY3130-57-25 02:08:004[facility] AND QSWCB2507-06-42 02:08:005[facility] URINE AND MUNOG9976-10-81 02:08:00Small *ABN*(06/10/16 8:08 PM)[facility] URINE AND SZPAN3299-57-23 02:08:001[facility] AND TDKZF8107-93-26 02:08:001.009[facility] AND RLMKX6742-39-25 02:08:00Yellow *NA*(06/10/16 8:08 PM)[facility] ZGUGN6145-80-15 02:08:00Clear (06/10/16 8:08 PM)[facility] KQUS3739-12-61 02:08:00Negative (06/10/16 8:08 PM)[facility] POGX7022-98-88 02:08:61641.4[facility]ann[facility] QESE4046-47-88 02:08:005.4[facility] PZSF8754-33-67 02:08:0069.80[facility]annCARDIAC ONCUFIO4343-31-72 16:53:020077Uozyuqiw HermannCARDIAC JRFYKTL9043-62-58 16:53:00<0.02[facility]annCHEM PANEL 2014-06-26 13:02:000.9[facility] DdrmxzsMEYWHGMNYF9213-80-62 12:29:4410[facility] GbpinewTEQZIEROATHIN5891-08-01 11:21:271[facility]annCHEM UUBDY0460-33-26 11:21:003.4[facility]annCHEM QECSI1802-93-81 11:21:0011[facility]annCHEM BGTOD1295-86-30 11:21:000.8[facility]annCHEM VBUBL5069-53-05 11:21:33336 [facility]annCHE[facility] GSUBU9002-18-42 11:21:0094[facility]annCHEM PANEL 2014-06-26 11:21:009.1[facility]annCHEM FBEYO3618-72-27 11:21:0024[facility]annCHEM PIIHK5522-84-67 11:21:000.9[facility]annCHEM UJJHX1371-74-39 11:21:003.4[facility]annCHEM XRUYN5839-96-75 11:21:0014[facility]annCHEM TSQAI6874-40-53 11:21:0019.4[facility]annCHEM FVCWQ4884-13-06 11:21:0081 [facility] SawhkgbXXMQPJUKAW5117-82-62 11:21:000.0[facility] HermannHEMATOLOGY 2014-06-26 11:21:001+ *ABN*(06/26/14 5:21 AM)[facility] AnemkykEOTCMWDZBR1792-13-07 11:21:000.6[facility] YuabaelRZTBUCUAHN4306-60-57 11:21:000.1[facility] CTBNGLCCWW4943-46-47 11:21:002.5[facility] VweunjgCVIKICTKKX7833-04-24 11:21:00 63.3[facility] BqguzrbSRHBKAANGW1938-78-94 11:21:005.6[facility] HermannHEMATOLOGY 2014-06-26 11:21:000.0[facility] SmxdlpwUIBVWWCGGX6975-28-55 11:21:000.9[facility] IdltacyVQXHJIKTCY9722-70-63 11:21:007.0[facility] ZhynmrcWOPILKVLSH3317-37-39 11:21:0028.8[facility] KbwpwgfOHVQMRCISL9705-95-12 11:21:008.8[facility] EPBIZPOARZ4191-80-57 11:21:005.19[facility] BhhyatoMNXNZATKGE4985-35-52 11:21:00 14.4[facility] VxijabnODPLHPQAXT0707-04-46 11:21:0043.1[facility] HermannHEMATOLOGY 2014-06-26 11:21:0083.1[facility] MzyafbuCPCTOMOIIH9593-68-20 11:21:00 Test Item Value Reference Range Interpretation Comments MCH (test code = MCH) 27.8 pg 27.0-31.0 [facility] ZmqbqxqXLCTVPDVSV4480-76-42 11:21:0013.1[facility] HermannHEMATOLOGY 2014-06-26 11:21:0033.5[facility] CqqyvlcZETDWUGODN4012-37-74 11:21:86603Epltoimk LisaocvXLPMYRCTSE9355-51-50 11:21:0010.4[facility] HermannCHEM PWKFY6989-50-54 11:21:003.2[facility] HermannCHEM BOCSR6817-35-57 11:21:006.6[facility] HermannCHEM TKXWZ8204-47-60 11:21:000.6[facility] HermannCHEM ZTJIF9767-26-05 11:21:0059 [facility] HermannCHEM ZIJIQ4237-41-64 11:21:0011[facility] HermannCHEM PANEL 2014-06-26 11:21:0017[facility] HermannCHEM MBTWF5493-03-27 11:21:0099[facility] HermannCHEM XISEN5982-85-71 11:21:65734Bhbhgkhg TjcskouFJOXRCYZZH6920-74-40 04:48:55Performed (04/14/2013 23:48:55)[facility] CoiutgnNYTWTDXNXY1909-01-22 04:48:55Negative *NA*(04/14/2013 23:48:55)[facility] JfrrtgaSQNOJALBUQ0630-33-00 04:48:55Trace *ABN*(04/14/2013 23:48:55)[facility] LalktlrKSSEFTPJYU2094-11-03 04:48:55Negative (04/14/2013 23:48:55)[facility] EfpibyxNFUODYBKDV0020-56-33 04:48:550.2[facility] KkfzprlYXLWXEJNOD5814-68-78 04:48:55Negative (04/14/2013 23:48:55)[facility] KbwhpvuPPXPQPPCEI5413-40-14 04:48:55Negative (04/14/2013 23:48:55)[facility] OqwaoodHKWLIZCIIJ5350-20-71 04:48:55Clear (04/14/2013 23:48:55)[facility] TqnljibVPQGLGXMKB5597-01-16 04:48:55Yellow *NA*(04/14/2013 23:48:55)[facility] FzlgvuiQYVOKJZJHX7971-79-70 04:48:55 Test Item Value Reference Range Interpretation Comments UA pH (test code = UA pH) 7.0 1 5.0-8.0 N [facility] StwggjjCTKMYJLBMM7889-14-90 04:48:55 Test Item Value Reference Range Interpretation Comments UA Spec Grav (test code = UA Spec 1.025 1 N Grav) [facility] MmbpvfyLLSSYEUXUR8214-23-35 04:48:55Trace *ABN*(04/14/2013 23:48:55) [facility] JebwogjIBMTIZKPX2473-37-17 04:28:00Negative *NA*(04/14/2013 23:28:00) [facility] KmematnFPJYRNZAP6897-76-89 04:28:31718Hxjdhoxb HermannCHEMISTRY 2013-04-15 04:28:004.1[facility] OglmypmURFXREEGV2847-13-47 04:28:0010.5[facility] MdylybmJOADONBLJ1975-94-86 04:28:006[facility] WreqipaLIKQWURBW4146-72-94 04:28:00 0.7[facility] QrvhbuaAEFWCLTNA7880-54-49 04:28:03688Pnyfizik HermannCHEMISTRY 2013-04-15 04:28:002.9[facility] CldrjrkUFFMEVZLR3170-23-29 04:28:0020[facility] UkrpartJVWUKXEPN5931-72-23 04:28:000.5[facility] KgjpzcdXBOTBXRLI8561-12-18 04:28:0089[facility] NvbdnqkNVYDJSGJK7064-40-75 04:28:0011[facility] PYLLCNXXE6489-25-80 04:28:000.5[facility] EjxksspNIVASRDAT1657-28-70 04:28:003 [facility] GssdgwpMWTWWCAWF1096-28-81 04:28:01954Qmouwcbq HermannCHEMISTRY 2013-04-15 04:28:007.0[facility] ZsrfzylCJDUHTCMX7734-35-40 04:28:008.7[facility] FocduziZQDJQXYIO3311-15-06 04:28:0029[facility] JyphkfgWRACTFHDJ2321-92-02 04:28:86275Ipdmpysw CaqsgnkAEHVTOKXO2675-62-49 04:28:003.5[facility] NANNHULZH0962-61-02 04:28:85908Ejphwvao WeuagyiKWHBCJJGUV1868-02-82 04:28:00 Test Item Value Reference Range Interpretation Comments PROTIME (test code = PROTIME) 12.1 s 12.0-14.7 N [facility] BtwvqnoCEWPQFMORR2342-37-89 04:28:00 Test Item Value Reference Range Interpretation Comments aPTT (test code = aPTT) 39.0 s 22.9-35.8 H [facility] AaxbqhiCTJYSUHAEA1616-73-25 04:28:000.90[facility] HermannHEMATOLOGY 2013-04-15 04:28:00 Test Item Value Reference Range Interpretation Comments MCH (test code = MCH) 29.4 pg 27.0-31.0 N [facility] YeecllkSXTEAPHTCQ6035-88-83 04:28:0086.1[facility] HermannHEMATOLOGY 2013-04-15 04:28:0029.4[facility] HexofbdCBXHPLSECL8817-48-91 04:28:0014.0[facility] UhsjyctGGYQIUMERC4058-32-00 04:28:006.2[facility] BepazqrXPZHSBTJOF2886-01-35 04:28:58946Nkhtseoh GiocjjzSUFFMAVBOF4024-80-05 04:28:0034.1[facility] EQVQYPQJUG3336-56-01 04:28:003.41[facility] FwidsckLDOJTQRQRB9300-29-32 04:28:00 10.0[facility] MogizmfHRKRJCRDYW8998-25-92 04:28:0010.1[facility] HermannHEMATOLOGY 2013-04-15 04:28:004.4[facility] BqozwtuXBJCXMZNCX5536-90-17 04:28:000.7[facility] OxmcrrrSGPSQESIUL2522-04-82 04:28:0070.7[facility] BqhpfgiANEVVISVTF1716-77-30 04:28:000.3[facility] JidcbywGOPIVPFTED3879-37-39 04:28:001.2[facility] SUKSDZUTLT7603-77-90 04:28:004.5[facility] DekneosBBDOZDUIGI6660-58-08 04:28:004.1 [facility] KnabghqRBTVTFCPDH8205-44-36 04:28:0020.0[facility] HermannHEMATOLOGY 2013-04-15 04:28:000.0[facility] OtduddrMZYXLZTWIO2292-88-43 04:28:000.3[facility] HermannBEDSIDE GLUCOSE FUQIBHX9738-01-15 01:12:78572Dumzwhyn HermannURINALYSIS 2012-03-14 23:40:00Trace *ABN*(03/14/2012 18:40:00)[facility] HermannURINALYSIS 2012-03-14 23:40:00 Test Item Value Reference Range Interpretation Comments UA pH (test code = UA pH) 6.0 1 5.0-8.0 N [facility] XuqkungLQJWZYJHUX8943-04-11 23:40:00>=80 mg/dL *NA*(03/14/2012 18:40:00)[facility] RujcqjiADSTBZWJEW8542-47-14 23:40:00>=1000 mg/dL *ABN*(03/14/2012 18:40:00)[facility] VzizkqxFXHEHADXHC9240-52-01 23:40:00Negative (03/14/2012 18:40:00)[facility] BqufgbbZYVWGEWHCH7903-89-74 23:40:00Negative (03/14/2012 18:40:00)[facility] QjdajjqUPJQWPFGEP6043-01-52 23:40:000.2[facility] OlbsntjUJMKKRBGQV4677-68-90 23:40:00Negative (03/14/2012 18:40:00)[facility] QfldqjrSWPLWFMKBL2398-49-25 23:40:00Negative *NA*(03/14/2012 18:40:00)[facility] XaqckfaFSZBATFIZD5754-84-99 23:40:00Clear (03/14/2012 18:40:00)[facility] WQJHSJNVTX1573-39-73 23:40:00Yellow *NA*(03/14/2012 18:40:00)[facility] FDMBJYTXMK5283-29-43 23:40:00>=1.030 *ABN*(03/14/2012 18:40:00)[facility] OmxophsZHPATKHRPG9122-99-13 23:40:00Occasional /LPF (03/14/2012 18:40:00) [facility] FswpfsiVULBKNULXK2152-69-60 23:40:003-5 /HPF (03/14/2012 18:40:00) [facility] OfgjhwbXFYQBRLFZF8349-85-04 23:40:00Occasional /HPF (03/14/2012 18:40:00)[facility] OgzkxvbBYSKRGVUV9927-07-93 22:50:00Negative *NA*(03/14/2012 17:50:00)[facility] OodvxyfDENINHUJK3210-45-92 22:50:0045[facility] HermannCHEMISTRY 2012-03-14 22:50:001.2[facility] PipyafaMSTZDZQXL2961-74-09 22:50:003.8[facility] WzgajurBTINIBUXG3905-66-25 22:50:0021[facility] SbzoisuPDKIOAAWV3615-16-83 22:50:0016.8[facility] EezijubFSRSMQDSU9778-98-71 22:50:001.1[facility] JUMRVWWNO0216-82-51 22:50:008.2[facility] UcruswbBVPZPOELG5582-76-11 22:50:003.8 [facility] LhcamxcFHUBSGCYS5296-08-34 22:50:000.7[facility] HermannCHEMISTRY 2012-03-14 22:50:10792Okbahoib PqbaxogJWVBAKWYY9668-40-00 22:50:0099[facility] BtlkmepQBQMOOWQB9748-06-42 22:50:0027[facility] MmrdbstNWOVLTLUG7126-66-41 22:50:09401Wzvmtlxj SitvtxqWSRVQGGJG1156-06-70 22:50:0015[facility] FXXSXCTJA0852-42-74 22:50:0024[facility] FrxrnznNCCSHCFKG9312-60-83 22:50:0020 [facility] XardjjjNIHBLNJES5625-19-16 22:50:0067[facility] HermannCHEMISTRY 2012-03-14 22:50:004.4[facility] SnqdwkoAABVUSMJT3240-26-44 22:50:009.9[facility] ApfknsqFBFVMXDIQH2186-22-12 22:50:0011.8[facility] WdazjztDNYMNRTMID0149-82-68 22:50:0035.9[facility] LkxfxxiZRPNHGCJGN0593-54-49 22:50:00 Test Item Value Reference Range Interpretation Comments MCH (test code = MCH) 31.2 pg 27.0-31.0 H [facility] TipdmrxNXLDXXGKLD6176-31-93 22:50:35500Ymwngyrn HermannHEMATOLOGY 2012-03-14 22:50:0013.1[facility] HhkxkkgSHKZQXIQXS3818-11-64 22:50:0040.7[facility] IixxunzZVLIBGIVPC6410-77-58 22:50:0014.6[facility] AfnycbqUHVTCDFJDX8547-42-96 22:50:0087.0[facility] EzuwpnaFWCEVEELAL4161-18-00 22:50:0011.7[facility] OPGNGYJAFY1551-11-01 22:50:004.68[facility] ZrcidscHBKFAJJXMF6545-39-67 22:50:00 0.0[facility] MoimvilHFRHXOTHJA2744-41-73 22:50:000.2[facility] HermannHEMATOLOGY 2012-03-14 22:50:000.0[facility] TysbjqrVGAFZFMNRN2356-67-00 22:50:000.4[facility] BdipyviNXYFTXWSMY1250-91-13 22:50:0010.6[facility] McunztkCUKICKLKFF6349-33-35 22:50:000.7[facility] XkbldowYIBJAMEYXO9216-98-43 22:50:003.4[facility] OXQPWFYKOD6825-54-77 22:50:00Normal (03/14/2012 17:50:00)[facility] KTSEYBDHOO3906-27-47 22:50:006.0[facility] BtdhsmnVWOQJLWNUR1709-94-28 22:50:000.0 [facility] PoqrpfgDPZBOUZIVY3608-53-90 22:50:0090.4[facility] HermannHEMATOLOGY 2012-03-14 22:50:00Normal (03/14/2012 17:50:00)[facility] SLTGCHM3083-95-18 23:43:92248Gyvbdslt HermannBEDSIDE GLUCOSE PTOUWQC6155-78-97 17:40:97305Jadddsdw HermannBEDSIDE GLUCOSE YWJLKLM9913-53-10 13:34:80881Dwxoeizb ZplfkeuMYYFHFUUA8846-53-58 00:00:00Negative (11/28/2011 19:00:00)[facility] HeightsPfxhkiyOPAGUQBLIE4099-25-99 00:00:00Performed (11/28/2011 19:00:00)[facility] NorthwestDvqalalUILRGXOXXG9763-30-60 00:00:00Occasional /LPF (11/28/2011 19:00:00) [facility] HeightsLrbhgnaOJQSMSFKKX6545-29-95 00:00:00None Seen (11/28/2011 19:00:00) [facility] NorthwestJyclcysYFQKEGXEWK6217-26-55 00:00:00Negative mg/dL (11/28/2011 19:00:00)[facility] HeightsNedmsqcFHBUFIAUZT1006-13-03 00:00:00 Test Item Value Reference Range Interpretation Comments UA pH (test code = UA pH) 7.0 1 5.0-8.0 N [facility] HeightsWircqjpBLGETCEEXQ0495-57-66 00:00:00 Test Item Value Reference Range Interpretation Comments UA Spec Grav (test code = UA Spec 1.020 1 N Grav) [facility] HeightsNbnzdxyLDMMKMUDRD8706-75-33 00:00:00Clear (11/28/2011 19:00:00)[facility] TfrooioAPMBHVJMUZ7288-40-11 00:00:00Yellow *NA*(11/28/2011 19:00:00)[facility] AwbfrgbZDIAWOASXN8161-62-81 00:00:000.2[facility] CywaoetENPTUXSZMU7492-73-30 00:00:00Negative (11/28/2011 19:00:00)[facility] GdkmandCPHFREYBTY3990-82-39 00:00:00Negative *NA*(11/28/2011 19:00:00)[facility] UryassvITOENOPQAO9042-20-98 00:00:00>=80 mg/dL *ABN*(11/28/2011 19:00:00)[facility] HermannURINALYSIS 2011-11-29 00:00:00>=1000 mg/dL *ABN*(11/28/2011 19:00:00)[facility] HASBZKLQDH8836-43-47 00:00:00Negative (11/28/2011 19:00:00)[facility] UYDUKATMRZ2764-82-44 00:00:00Negative (11/28/2011 19:00:00)[facility] ELFZZJQQJ9771-39-80 20:41:0060[facility] YbxaldmOTAFRUSPY0629-18-22 20:41:0041 [facility] AspmkkeNQSUMPGGY4637-30-97 20:41:007.45[facility] HermannCHEMISTRY 2011-11-28 20:41:0037.0[facility] AgxpowuVOUYQPEYV6289-99-70 20:41:0092.0[facility] PqbprbgLRRAYEYCY7833-18-59 20:41:004[facility] BzxyzgoCNSLGJLXJ7332-37-08 20:41:00 28.5[facility] HqeqodsGBZNXVOWG6477-49-88 20:00:001.6[facility] HermannCHEMISTRY 2011-11-28 20:00:39377Daxmrsae LfznphuDBXHSXMHF9461-72-39 20:00:004.2[facility] OcbkqakKAVPFXJNZ9305-57-16 20:00:0023[facility] IxzldsiCODCLMXAL1574-68-92 20:00:0098[facility] FqkfkcuPLWFWXTBP7221-70-07 20:00:003.8[facility] FEBVTXIKF6828-12-97 20:00:67522Osptmwxw PfsuruqSDXKECZVM0920-63-45 20:00:000.7 [facility] RxbagltVQJLVGUZK2093-85-80 20:00:009[facility] ZcevuxrXVEUIZQGF0321-66-39 20:00:20318Podniezb WbglfnaZCCDCWPOT6330-29-79 20:00:0013[facility] EPOGKKIAM4380-56-50 20:00:0020.8[facility] RxomsdtKMUOQEZOQ2118-93-60 20:00:009.3 [facility] ZkukacgPGEMMVARJ9977-99-43 20:00:006.7[facility] HermannCHEMISTRY 2011-11-28 20:00:001.7[facility] YadzqyeDGZHSJLLO5590-52-36 20:00:002.5[facility] UqtimjeNGMCYGOIP8163-01-63 20:00:0018[facility] RiolepsDJFMIFVSN7795-03-43 20:00:0062[facility] IruhaevSXPLQCNPR9432-50-88 20:00:0032[facility] PUSFKTWAI8275-73-89 20:00:000.7[facility] JtkuebrFPPSNKIIQP2148-79-24 20:00:001+ *ABN*(11/28/2011 15:00:00)[facility] IbpclroQKXSOHRKCS4015-28-51 20:00:000.1 [facility] WtjlgdpLDUWGNIKHH5991-24-10 20:00:000.0[facility] HermannHEMATOLOGY 2011-11-28 20:00:000.0[facility] CkyszuiSJBJRBKIQC5448-34-17 20:00:00Slight *ABN*(11/28/2011 15:00:00)[facility] CjwtataZLVNPROVRK3190-16-66 20:00:00Slight *ABN*(11/28/2011 15:00:00)[facility] GapseqtGVPGLNFKDW6522-23-45 20:00:005.7 [facility] ZyesaylEBREDIMSSS5057-39-49 20:00:000.8[facility] HermannHEMATOLOGY 2011-11-28 20:00:000.2[facility] HwuvcxuKPCAEVEDYA0041-00-14 20:00:000.0[facility] FirigspWHUJWOFNGJ6144-51-52 20:00:001.9[facility] CiimaxvKGTWAMHAFG2885-04-96 20:00:0086.2[facility] VwvznofAQFOIIHBCP2459-73-18 20:00:0011.7[facility] FSKUEHMOMV2555-15-81 20:00:0010.8[facility] SvkhxevKBHLCFICFN1431-00-17 20:00:00 161[facility] DlhkmfiOLKPBKWLMO0289-85-77 20:00:0035.6[facility] HermannHEMATOLOGY 2011-11-28 20:00:0012.4[facility] RpxzcoqJCNUDODGYT0834-02-48 20:00:00 Test Item Value Reference Range Interpretation Comments MCH (test code = MCH) 30.7 pg 27.0-31.0 N [facility] IiohmxcNYYEHIWQXA0944-45-02 20:00:0086.1[facility] HermannHEMATOLOGY 2011-11-28 20:00:0033.6[facility] NnvadcaNVGDOSQRIZ0176-47-12 20:00:0012.0[facility] VpizgvmMPJKCBOZZX2419-48-42 20:00:003.90[facility] BcmyyxgQEMZFWWEOP1493-64-16 20:00:006.6[facility] FdbpgmiMXNSZKESG1538-32-26 19:51:00See Note 5*NA*(11/28/2011 14:51:00)[facility] JlosyloCZPQJPYQR4145-84-81 19:51:00Negative *NA*(11/28/2011 14:51:00)[facility] CeswnneYTYXRQSJR0340-55-91 19:51:00Negative *NA*(11/28/2011 14:51:00)[facility] KzslstiEASJOXBTY0292-31-08 19:51:00Negative *NA*(11/28/2011 14:51:00)[facility] MoqlcqhKRAXJWHOG2722-23-29 19:51:00Negative *NA*(11/28/2011 14:51:00)[facility] YbvchpyDXTJZZDJP9390-82-90 19:51:00Negative *NA*(11/28/2011 14:51:00)[facility] XrgnihbSBCXRDROF9468-24-93 19:51:00Negative *NA*(11/28/2011 14:51:00)[facility] XpijmluUIEUHWOPL4905-21-93 19:51:00Negative *NA*(11/28/2011 14:51:00)[facility] YPRNAGH8179-39-75 16:20:19436Isvhcanb UsexntfGBOTVXZHO2862-23-81 15:30:00Negative (09/18/2011 10:30:00)[facility] RxzmtoqVYVYQSUTQL1535-08-13 15:30:00None Seen (09/18/2011 10:30:00)[facility] HeightsFefgvalMLDQPXDKIU9341-36-90 15:30:00None Seen (09/18/2011 10:30:00)[facility] HeightsKpcbeagHPANMKNCMO3611-22-34 15:30:00None Seen (09/18/2011 10:30:00)[facility] HeightsXntzxczQIGRRQSCAU1711-15-39 15:30:00Few /HPF *ABN*(09/18/2011 10:30:00)[facility] HeightsIrkbbnxDKJUSEJPES9856-73-31 15:30:00Performed (09/18/2011 10:30:00)[facility] HeightsDeicvnlXSXTDTIIVP3552-51-94 15:30:00Rare /LPF (09/18/2011 10:30:00)[facility]VhtywwkIVQQVGTVWS1576-21-23 15:30:0015 mg/dL *ABN*(09/18/2011 10:30:00)[facility] HeightsHukqdytLNFMTNRCXT4402-67-20 15:30:00>=1000 mg/dL *ABN*(09/18/2011 10:30:00) [facility] HeightsAfvftgpFIZJXONFVU8442-90-06 15:30:00Trace *ABN*(09/18/2011 10:30:00) [facility] HeightsNfugytyXUYPDNBSDL8593-75-92 15:30:000.2[facility]annURINAL[facility] 2011-09-18 15:30:00Negative (09/18/2011 10:30:00)[facility] 2011-09-18 15:30:00Negative *NA*(09/18/2011 10:30:00)[facility] 2011-09-18 15:30:00Negative (09/18/2011 10:30:00)[facility]annUR[facility] 2011-09-18 15:30:00Negative (09/18/2011 10:30:00)[facility]UR[facility] 2011-09-18 15:30:00 Test Item Value Reference Range Interpretation Comments UA pH (test code = UA pH) 7.5 1 5.0-8.0 N [facility] NhazhyiMNACZQXGVK2641-67-92 15:30:00 Test Item Value Reference Range Interpretation Comments UA Spec Grav (test code = UA Spec 1.010 1 N Grav) [facility] YcvnmpxYPPOWSFSVX4503-22-55 15:30:00Slight Cloudy (09/18/2011 10:30:00) [facility] XayltgqDAZITCSBRY2792-69-66 15:30:00Yellow *NA*(09/18/2011 10:30:00) [facility] BebwpauIRUNUOEZS5541-90-23 14:07:004.4[facility]annCHEMISTRY 2011-09-18 14:07:001.6[facility]annBEDSIDE GLUCOSE MZBLJWR4224-72-35 14:01:00 >400[facility] MioryujPTKPDFMIC3723-32-00 13:52:0092[facility]annCHEMISTRY 2011-09-18 13:52:0030[facility] ExwozwdPHWGCAJYG7743-34-49 13:52:003.5[facility] AepvgyhTZYZYMYWU6617-98-00 13:52:72858Xfiukgxp ExkbbapOQRKXLXSD8677-31-46 13:52:001.3[facility] BuerhqtPZQGDGWPB5163-80-15 13:52:85364Rsbbdqci [place] YPGCVKXES0433-26-45 13:52:0017[facility] CvskrcuYZKLDNQZL1747-59-83 13:52:0014.5 [facility] QrzxvdiKQBAHQJLAW7362-35-59 13:52:0012.0[facility]annHEMATOLOGY 2011-09-18 13:52:81968Psokkpqg XfxihzpHQFWJWHHAY1030-14-88 13:52:0033.7[facility] HlkvbxnMRZVNOPYUZ3845-11-23 13:52:00 Test Item Value Reference Range Interpretation Comments MCH (test code = MCH) 28.5 pg 27.0-31.0 N [facility] ZycnidrRZSMOXOWAO7770-07-52 13:52:0015.1[facility]annHEMATOLOGY 2011-09-18 13:52:0084.6[facility] MtzgcfgFAUHHKFNMK5552-86-42 13:52:0036.4[facility] XdnbkbpGACGRDTGLP0380-24-51 13:52:0012.3[facility] PeuxgdoAUKISXRZRQ5053-88-72 13:52:004.30[facility] XhivfwkGKFGTSKHHT7248-96-35 13:52:0011.7[facility] [place] XVGOVSOFND1959-52-63 13:52:002.9[facility] MlowmlfLNPJXZIDBI6970-06-00 13:52:000.2 [facility] FjlawfhCSTSTZEGZT5041-15-88 13:52:000.0[facility]annHEMATOLOGY 2011-09-18 13:52:000.0[facility] UzilqohWXQQXEDUCB8762-89-30 13:52:000.3[facility] WpwmuraOJBREIZIMO3572-55-63 13:52:0092.0[facility] UyckrkmSWNGTTARDE2761-05-37 13:52:004.9[facility] TdjiatwCQQGSBXAVS4992-20-01 13:52:00Rare *ABN*(09/18/2011 08:52:00)[facility] TqykawsQQMCGOHBZH1347-10-91 13:52:00Slight *ABN*(09/18/2011 08:52:00)[facility] TrbduuqVJZULPMGCA3672-88-09 13:52:001+ *ABN*(09/18/2011 08:52:00)[facility] DsjgtnzBGGSHUIHKX6616-03-29 13:52:001+ *ABN*(09/18/2011 08:52:00)[facility] KqqjgwaRRTFATGNEB4125-39-59 13:52:000.6[facility] Vin BOOAOICTRB1423-47-58 13:52:0010.8[facility] PrxfdrhNHCFOZDRMD8752-85-01 13:52:00 0.0[facility] AmaqoawVCGYOXJPEZ7552-65-74 13:52:001+ *ABN*(09/18/2011 08:52:00) [facility] QrhdudkPJJDLUYAJN6340-43-05 13:52:00Negative *NA*(09/18/2011 08:52:00) [facility] HehycfxJQSPVVEXJ5781-12-73 13:52:0024[facility]annCHEMISTRY 2011-09-18 13:52:0032.0[facility] TilxvplYVRJZLAOY7565-26-23 13:52:0044[facility] YyzmpewSZUUERYKG9946-89-88 13:52:007[facility] GpyphxiXHXONCEGY9905-95-95 13:52:00 48.0[facility] XhbuzvoGKUFCIJLW7696-93-23 13:52:0037.0[facility] HermannCHEMISTRY 2011-09-18 13:52:007.47[facility] YykikmnEVMGOGLKX6432-77-59 13:52:0010.1[facility] HermannBEDSIDE GLUCOSE GXOLXIF8346-55-37 17:34:11929Bsdeitjx HermannBEDSIDE GLUCOSE VYJXXWJ7353-50-29 11:43:0091[facility] HermannBEDSIDE GLUCOSE TESTING 2011-09-09 02:45:61147Cdxhyehp JaoeohjLSMKHYUUX8233-50-78 08:47:19179Cmjyodsg IwddpupUZTESXGKR2932-66-99 08:47:27511Kbuovmen NxnfwtfQCACDHWGE7252-58-23 08:47:0029[facility] WhpgpfkLSNKJZKOU7005-40-83 08:47:61814Krdlvtrd Vin HIKCHJHOM5027-91-71 08:47:0010[facility] UefwbegDLVHHZHQL0168-74-22 08:47:003.8 [facility] LozharfCHUPVRXKS5901-56-88 08:47:000.6[facility] HermannCHEMISTRY 2011-09-08 08:47:008.5[facility] HywctcoJVCDESVBP1873-02-79 08:47:0014.8[facility] HibewgrVJHWWTBSMN0422-57-54 08:47:00 Test Item Value Reference Range Interpretation Comments MCH (test code = MCH) 28.9 pg 27.0-31.0 N [facility] MnjexunHPSYYNCZTF9986-47-99 08:47:0082.1[facility]annHEMATOLOGY 2011-09-08 08:47:0025.9[facility] SmmvtlpDPFQHOUHDX0112-25-59 08:47:61052Lbombmpx LdrugcmQOMGVCOXVT9742-14-83 08:47:0014.5[facility] SuqkuhqFJBIDESCVX6961-28-08 08:47:0035.2[facility] IelvpgiPBVMUOEXRP1297-21-11 08:47:009.1[facility] Vin MPHATBWZFQ5286-76-95 08:47:003.15[facility] JaxodslAPOZWPJKTZ4916-19-18 08:47:00 9.0[facility] HurwnscKXBNIBEMBC9723-62-82 08:47:006.3[facility] HermannHEMATOLOGY 2011-09-08 08:47:000.0[facility] LnqufiuQTQPBKGVQS2133-24-96 08:47:000.0[facility] YyhvkwqDTCVINTMBM1262-07-02 08:47:003.8[facility] FfkvhqeBWMMMYCBUT1120-43-89 08:47:002.0[facility] CuxctnnQQYELJTOVY1326-45-21 08:47:000.5[facility] Vin QNYOVCKJTZ0401-11-98 08:47:000.7[facility] SkmiwinTUTNFCMTQK2191-98-53 08:47:006.2 [facility] UrjbtsgAFHOAWBZGH1127-31-07 08:47:0061.1[facility] HermannHEMATOLOGY 2011-09-08 08:47:0031.5[facility] RmatyroXEQWVQHQUH0143-88-55 08:47:000.4[facility] WnyotbsUGKEWFJDV4763-51-77 10:54:0027[facility] WzddgbjAEWYMFCRJ9623-92-39 10:54:99819Oahijgjc YgqzfqsUQLTXFLNK8756-46-95 10:54:000.5[facility] [place] AKDSZJHSK3409-19-19 10:54:0010[facility] DrtfgyhVTJIDVFON9571-73-88 10:54:004.1 [facility] KkiopnoKMXRZBFPV9540-13-62 10:54:64167Vdetruof HermannCHEMISTRY 2011-09-07 10:54:0083[facility] WtxwyhmODCRQIHOG8369-04-25 10:54:008.4[facility] QuplnelFZYSYRUZA0875-53-18 10:54:0014.1[facility] DehwozjLRMLOLROQG2023-48-00 10:54:0035.5[facility] FbqpkeiCPPSJYZVTR5234-00-64 10:54:004.7[facility] [place] LNECEOTLBM6835-22-00 10:54:0092.6[facility] JnudaobWHLAGZWMUM2269-00-93 10:54:00 Test Item Value Reference Range Interpretation Comments MCH (test code = MCH) 31.4 pg 27.0-31.0 H [facility] XohfiguMKVTHMZNEZ0266-38-81 10:54:003.84[facility] HermannHEMATOLOGY 2011-09-07 10:54:0012.1[facility] AofmsivHNYSPSHUJD1206-06-92 10:54:48018Sjdqjcuj FtcxqwnRZSTHAUAUG7773-87-10 10:54:0012.7[facility] TthxstbMCPNPRGCKS3470-22-01 10:54:0033.9[facility] MnrslbrFEPHMKKFEM0794-86-19 10:54:007.2[facility] [place] ACXJVANEKF7230-35-22 10:54:000.95[facility] TnaipdcMXKPHBZAAM4205-85-80 10:54:00 Test Item Value Reference Range Interpretation Comments PT (test code = PT) 12.7 s 12.0-14.7 N [facility] ThnsnymSBGUKNVABK6892-13-35 10:54:00 Test Item Value Reference Range Interpretation Comments PTT (test code = PTT) 28.5 s 22.9-35.8 N [facility] EisggprBFUMUWQQBB6485-99-91 10:54:000.1[facility]annHEMATOLOGY 2011-09-07 10:54:000.0[facility] NmgszelGGHWMYRMAY3780-69-18 10:54:000.4[facility] KkedbleORQJBKFJEO4617-77-28 10:54:002.1[facility] SguiuxoKWSUVWHRSD2964-75-72 10:54:009.0[facility] PcxtcfpHVEPQHRECO9434-22-36 10:54:002.4[facility] KEPDJXHFYC5083-19-61 10:54:000.4[facility] ZwtknifXWZLKYVRAX6722-72-94 10:54:002.0 [facility] KhakxucKSPLOBCXWQ1732-73-48 10:54:0042.8[facility] HermannHEMATOLOGY 2011-09-07 10:54:0045.4[facility] MmzzxdxZARRDNLXC9238-48-83 10:02:31584Fynatall LuybcbzBUJPTGTLQ8461-09-80 10:02:004.1[facility] XqbefnoOKHJHLJTG7925-06-30 10:02:71348Kjkwgtsb KfymqyqJOFDYBVTR9282-27-35 10:02:0029[facility] Vin OCCLSRHAE0334-69-00 10:02:008.7[facility] UwywzhyQQSHLLXYR6063-26-34 10:02:006 [facility] TwmggafRKFUFFLST9531-45-47 10:02:000.6[facility] HermannCHEMISTRY 2011-09-07 10:02:47550Ksxpwggc UffpreqVDQFUCVWF6034-03-16 10:02:0013.1[facility] FfamgziECWWDGKQQL8878-42-63 10:02:000.0[facility] VsdleurUMVGQTNUQK8869-29-75 10:02:000.3[facility] MvjxbhqIJFDLHUBWE6598-04-89 10:02:000.1[facility] MUVJNGFXRV4624-29-89 10:02:002.8[facility] RxsyytaZYZFYRZJFD4298-65-63 10:02:001.7 [facility] YnydgltBYTLRLMEEB6806-78-78 10:02:000.6[facility]annHEMATOLOGY 2011-09-07 10:02:006.9[facility] XtpcgltWXDVQUBQUS0545-30-36 10:02:002.0[facility] DpirhpnMAQQVJPTRS8896-88-05 10:02:0055.8[facility] HmpidblNTPFQKKQLF7173-11-50 10:02:0034.7[facility] DypmpklJETKSOBCCM7687-07-26 10:02:00 Test Item Value Reference Range Interpretation Comments PTT (test code = PTT) 32.2 s 22.9-35.8 N [facility] TdmcjlcNCQWRKACZL1336-45-59 10:02:00 Test Item Value Reference Range Interpretation Comments PT (test code = PT) 13.3 s 12.0-14.7 N [facility] HlqhgnoSALMLYMQHQ5997-82-23 10:02:001.01[facility]annHEMATOLOGY 2011-09-07 10:02:0027.5[facility] CgsejbnRBNASTVMWZ4467-61-71 10:02:003.34[facility] CkxvodmYNTWRXWREZ7193-57-01 10:02:009.7[facility] XbfesiqWFUNIEKGQH3086-67-00 10:02:005.0[facility] CkudmgcPMJIURQRTS2623-74-23 10:02:009.2[facility] Vin VBRBWVRBGO5622-41-01 10:02:36834Nebbdrra BdeeeieSHPYWUZKBC0037-94-18 10:02:00 14.3[facility] NlcpyabVQIZHJOZCU1655-59-66 10:02:0035.2[facility]annHEMATOLOGY 2011-09-07 10:02:00 Test Item Value Reference Range Interpretation Comments MCH (test code = MCH) 28.9 pg 27.0-31.0 N [facility] KxqrqyhNTNXLFQFHV5895-45-86 10:02:0082.1[facility] HermannCHEMISTRY 2011-09-03 09:24:002.1[facility] RozfbqzVVHRFYQYG4413-57-88 17:10:0037.0[facility] EuotbeiJNHSQYNVQ4682-71-95 17:10:0027.0[facility] WgtqkqqAONAYDIXW7168-20-19 17:10:0047[facility] TlrtvxfEUCSUYRFT0317-53-26 17:10:007.37[facility] [place] FEMNUMPCO9961-90-22 17:10:001[facility] BtuxrkgVSZYQRLWY8133-29-36 17:10:0027.2 [facility] PdfyddzDGFJZHFIZ3326-75-70 17:10:0019[facility]annCHEMISTRY 2011-09-01 13:09:001.0[facility] LhzbeghWCBBWIDSR5073-38-53 12:20:00Negative (09/01/2011 07:20:00)[facility] LyexurnSZHMOBDGEW9059-77-70 12:20:00Occasional /LPF (09/01/2011 07:20:00)[facility] XuznumoWCTCIHYJFF4759-94-99 12:20:00Negative (09/01/2011 07:20:00)[facility] IbgcnfeOFAXFGQMWW9517-54-88 12:20:00Negative (09/01/2011 07:20:00)[facility] UdzndkvIJDJRDECOP8604-41-54 12:20:000.2[facility] FvfqyfaGKRLSCKNTE9547-36-00 12:20:00Negative (09/01/2011 07:20:00)[facility] RjsmonyIAWHZRCCKD7222-97-74 12:20:00>=80 mg/dL *ABN*(09/01/2011 07:20:00) [facility] PvsbusfSPFDSWCXEK3472-07-59 12:20:00Negative (09/01/2011 07:20:00) [facility] JaqophqRGJIIRTIAS0446-69-79 12:20:00 Test Item Value Reference Range Interpretation Comments UA pH (test code = UA pH) 6.0 1 5.0-8.0 N [facility] MqzcppwTVJMJTILOJ6245-70-84 12:20:00Negative (09/01/2011 07:20:00) [facility] QutoftmCMYMBZWORA9060-50-91 12:20:00>=1000 mg/dL *ABN*(09/01/2011 07:20:00)[facility] GpuvkljSIUWAVJDJG5165-90-76 12:20:00 Test Item Value Reference Range Interpretation Comments UA Spec Grav (test code = UA Spec 1.035 1 H Grav) [facility] EcxkingEMXYBKRNWJ4083-15-94 12:20:00Clear (09/01/2011 07:20:00)[facility] MkfgqrpBVLYPSBELD4501-10-60 12:20:00Yellow *NA*(09/01/2011 07:20:00)[facility] GslvsbxFGTCAQMJK8898-23-53 08:00:002.8[facility] MdfacmpEEFCRTNQA5270-08-68 07:47:001.5[facility] PlasqwtTLBLONDVQK9579-88-48 07:47:00Slight (09/01/2011 02:47:00)[facility] GakcaypQCQMEJPYEH6496-90-52 07:47:001+ *ABN*(09/01/2011 02:47:00)[facility] AzvverfCIJMVCQPYS2186-54-62 07:47:00Slight *ABN*(09/01/2011 02:47:00)[facility] RveiiaxHDVWVQWKKD6169-72-97 07:47:00Slight *ABN*(09/01/2011 02:47:00)[facility] HermannBEDSIDE GLUCOSE MTHWOMZ5298-29-09 17:02:14697Ythnghur HermannBEDSIDE GLUCOSE UBLVGXC1065-81-13 13:45:56733Vlbdoujd HermannCHEMISTRY 2011-08-23 10:22:003.0[facility] AalqqngZDJXBXXJX6742-07-34 10:22:001.8[facility] EcqwpppVXKFUDSVR0253-51-42 10:22:19816Thvlrdyy TokyhwwFCJPRRWCE2332-41-08 10:22:003.0[facility] TbfwvzaJNKGFRNNH6639-06-94 10:22:83420Vmrhvzck [place] VIBKZZTOK1039-85-71 10:22:000.6[facility] NzkceqdQVXEMTPFD7844-23-94 10:22:0023 [facility] BxjjtyeHOTVQMOLY0384-20-14 10:22:007.3[facility] HermannCHEMISTRY 2011-08-23 10:22:22791Bkagoish FtwzmltENLRIVSXJ0748-27-15 10:22:0014.0[facility] QxdnbkiRYNCVPLLJ6088-40-51 10:22:005[facility] FccdfcsMUOMVKGWEO7724-14-85 10:22:0069.6[facility] PtqcqpqGINTYLMPTO9127-46-56 10:22:0021.5[facility] [place] JYILWECJVI6773-10-99 10:22:007.6[facility] CnfjtssVYEVNAHXOO1259-21-49 10:22:001.0 [facility] NoximqfPMSONBDXSU8655-07-57 10:22:000.3[facility] HermannHEMATOLOGY 2011-08-23 10:22:004.8[facility] AzrtgboUBTJBNKKDU2243-56-80 10:22:000.1[facility] EfqfecnRBHUWNNZJA4790-66-63 10:22:001.5[facility] CxygczkEEORRYQJHI4633-36-80 10:22:000.5[facility] NonmahlTRFLJWVLWL1857-75-64 10:22:000.0[facility] Vin QAIITBMQBN3579-68-66 10:22:0011.0[facility] PchqujhFEAVITWXZR3962-50-52 10:22:00 161[facility] CukmzofEWIOWGDTPY3441-17-83 10:22:00 Test Item Value Reference Range Interpretation Comments MCH (test code = MCH) 29.6 pg 27.0-31.0 N [facility] DrywcvhCBLVRFVMCL8617-21-81 10:22:0035.4[facility] HermannHEMATOLOGY 2011-08-23 10:22:0014.1[facility] BfruqsoDRBVUDQLMS2318-82-21 10:22:006.8[facility] OardrhnHSMTQCLMLE6146-02-71 10:22:0083.5[facility] TgeuuhiRDLHLIHLHZ1306-24-06 10:22:004.44[facility] FqknyryZOUHLFTXMI9829-67-97 10:22:0013.1[facility] Vin QGWDZUYYVH2710-27-80 10:22:0037.1[facility] HermannBEDSIDE GLUCOSE TESTING 2011-08-23 02:20:06365Lnylbbzt IjeugxmVJEUMQVQS8011-80-49 09:47:002.5[facility] PurdobuNQJIVFLWC2431-58-21 09:47:93689Jmdrrigw SejerhlVMAJHUXYI2439-72-94 09:47:007[facility] ZzcnygiSDHQQTPNW3379-87-60 09:47:0019[facility] HermannCHEMISTRY 2011-08-22 09:47:000.3[facility] ZwbqjxnCBAHUCGJE6611-49-18 09:47:87531Equcyofg TapxhqjSNSHDCQMB2246-38-47 09:47:79451Fsowllcj QcxrzwjITCGHUMYB8290-21-81 09:47:003.6[facility] IvoflwsOQGGIXBWG5593-10-25 09:47:007.9[facility] [place] TVSXIULWX4893-81-37 09:47:0018.6[facility] NndcnvgDARLAZFBL3503-11-51 09:47:001.6 [facility] UezbthzSFWARWRXLL5068-16-75 09:47:000.0[facility] HermannHEMATOLOGY 2011-08-22 09:47:000.4[facility] KasarllURIMFQAZFC6358-95-02 09:47:000.5[facility] MpavyxzONKBMRLDPV4694-52-07 09:47:005.9[facility] XeeirjkPPAFUEPNUJ7215-90-31 09:47:001.2[facility] LdieqtgKWNPASHUOR1695-75-10 09:47:000.5[facility] BSCSGWHAUN6909-60-49 09:47:000.0[facility] NpcbyguTNFXXLAEVI3839-06-18 09:47:00 76.9[facility] EgjdkjxLBYBPTZNTT2454-06-81 09:47:0015.9[facility] HermannHEMATOLOGY 2011-08-22 09:47:006.3[facility] OnlrrtxAIAVECIKEE2047-04-52 09:47:0082.8[facility] FwijazdPMAADACPJO7434-53-70 09:47:0039.7[facility] VbcumzzZPAODVJNKP4350-95-20 09:47:00 Test Item Value Reference Range Interpretation Comments MCH (test code = MCH) 29.1 pg 27.0-31.0 N [facility] DdzjuloHLSSEBDGIA2947-30-91 09:47:0014.0[facility] HermannHEMATOLOGY 2011-08-22 09:47:0035.2[facility] GslyhfzRIJLRIITGM8299-20-34 09:47:0013.9[facility] XsqztpdXPLEGVJFBY2527-62-95 09:47:39111Ipxngxtp DntmnpxKTXTJZPSIR1634-64-53 09:47:0011.9[facility] AtzldkqSAXMRIEERZ9155-05-55 09:47:007.7[facility] Vin FMFGPKACUP3313-63-84 09:47:004.80[facility] ScyxwzdPDORUWKYV8397-83-48 10:28:002.6 [facility] TstdjvdDKGWXCTXN0409-15-87 10:28:001.8[facility] HermannCHEMISTRY 2011-08-21 10:28:003.7[facility] PpcidglYRRIVFBBR0312-29-94 10:28:15862Xzhmcjxt PvdwwgiAZLXLRFWO6962-05-57 10:28:000.6[facility] CyrybcyLTLJSXNTY6443-93-42 10:28:0016[facility] XntemytUCAHNRYCY5830-09-67 10:28:59423Qporhmbb [place] FGQBCEEXJ8796-25-85 10:28:008.3[facility] EnvwwziQRHIDYAXI4135-67-30 10:28:0019.7 [facility] HbvlhctTHPKFWMVQ2462-59-10 10:28:0099[facility] HermannCHEMISTRY 2011-08-21 10:28:0022[facility] LhtrtqcMKFQKOVQPC5022-04-67 10:28:62623Xkyrsulw NbyliotRAWBSYPXNL3244-16-58 10:28:0012.0[facility] SfxoeqrFEIAXRYXWS4446-42-36 10:28:007.3[facility] FdtaxysPCYOYRKAYU0409-39-80 10:28:0014.6[facility] [place] DCDINOVZJR6509-11-45 10:28:0035.0[facility] KvoifwxJXNMQTIBHD9714-99-64 10:28:00 4.54[facility] MjxmbomOVXOUQOHBN8149-56-72 10:28:0037.6[facility] HermannHEMATOLOGY 2011-08-21 10:28:0082.9[facility] HtopwpiTKWZCBMKTU4479-49-69 10:28:00 Test Item Value Reference Range Interpretation Comments MCH (test code = MCH) 29.0 pg 27.0-31.0 N [facility] ElhofieNSAQMEXGCS2293-31-04 10:28:0013.2[facility] HermannHEMATOLOGY 2011-08-21 10:28:00Slight *ABN*(08/21/2011 04:28:00)[facility]annHEMATOLOGY 2011-08-21 10:28:00Slight (08/21/2011 04:28:00)[facility]annHEMATOLOGY 2011-08-21 10:28:000.0[facility] VekkffjVAHPTPWKKA8537-72-56 10:28:00Slight (08/21/2011 04:28:00)[facility] GuahkfgLQYCNCEOOZ6732-38-34 10:28:000.6[facility] DmlyubeBZOACDXHAP1350-05-84 10:28:000.0[facility] QnkjvqwAOWUAANEOR5152-81-11 10:28:005.3[facility] IglvzvwZJGTJYVMTP0984-71-21 10:28:001.3[facility] [place] TACNEHTDTG7011-02-60 10:28:000.5[facility] EpclssbPGLNPVFLRS6748-69-19 10:28:008.5 [facility] PyctqcdUNFXGPGYUL9872-32-44 10:28:000.3[facility] HermannHEMATOLOGY 2011-08-21 10:28:0017.3[facility] VgoqhqmEDLIATWZZR4667-87-41 10:28:0073.4[facility] XyzsmliDVRJPFWHB2556-85-35 21:58:00Negative (08/19/2011 15:58:00)[facility] PfydlatEXSVSBZLB5410-29-37 21:58:09595Uysrcfbk DkxeeqxBKKAJLZWQ5985-06-74 21:58:0054[facility] VuocnfqMJLLCWFLN4564-84-86 21:58:84164Zlfvmklp [place] ROLCMLBVV8617-12-92 21:58:000.1[facility] ZdnfjmrMWCDQAOLL5179-54-35 21:58:000.9 [facility] WyfmrhkPBSAODMBR4337-08-55 21:58:004.4[facility] HermannCHEMISTRY 2011-08-19 21:58:008.8[facility] PlxygacHBSXRGOTJ2128-58-73 21:58:000.8[facility] HhefogvBRFROHEGD3607-49-31 21:58:0036[facility] QijvakqXADOEZXPI8058-67-59 21:58:004.4[facility] ArjacubCPRUFGRNR7164-60-71 21:58:001.0[facility] [place] EYYKHYUBOB0486-35-22 21:58:00Occasional /HPF (08/19/2011 15:58:00)[facility] AawnrfcXNPIXRVRVD3911-88-21 21:58:003-5 /HPF *ABN*(08/19/2011 15:58:00)[facility] BtfkmifFELHBQPAAU8416-01-74 21:58:003[facility] SkwnwdzEFWNCFKXAP6773-31-46 21:58:00Few /LPF (08/19/2011 15:58:00)[facility] ItpuzbmQRDBVVVCDP5491-93-01 21:58:00Occasional /HPF *ABN*(08/19/2011 15:58:00)[facility] HermannURINALYSIS 2011-08-19 21:58:000.2[facility] QjaqgdvKFRRYDZNCF7597-19-91 21:58:00Rare /LPF (08/19/2011 15:58:00)[facility] EidlizmMJDLCJVTYM5603-72-85 21:58:00Performed (08/19/2011 15:58:00)[facility] JpjsdrmJOXOZRPFZM3569-95-77 21:58:00Negative (08/19/2011 15:58:00)[facility] VjpwfbdAZZCATDGUM5069-96-01 21:58:00Negative (08/19/2011 15:58:00)[facility] SdkcrltPMWBWOOLLJ3302-45-96 21:58:00 Test Item Value Reference Range Interpretation Comments UA pH (test code = UA pH) 5.5 1 5.0-8.0 N [facility] CtbbalmMEUJOGJOSP1897-41-97 21:58:00Trace *ABN*(08/19/2011 15:58:00) [facility] UjbvmqzCLMLUWMVLQ2448-47-55 21:58:00Negative (08/19/2011 15:58:00) [facility] PfijnllHICILEHIGZ9619-11-34 21:58:0080 mg/dL *ABN*(08/19/2011 15:58:00) [facility] GykiqvuJFGICEOPGT3974-57-84 21:58:00>=1000 mg/dL *ABN*(08/19/2011 15:58:00)[facility] QpyxaioSBAAYIXEFZ3994-71-19 21:58:00Negative (08/19/2011 15:58:00)[facility] TullfvvLMCITBYLAW6308-44-60 21:58:00Slight Cloudy (08/19/2011 15:58:00)[facility] HcsceafLVNDIOBXPP3374-63-29 21:58:00 Test Item Value Reference Range Interpretation Comments UA Spec Grav (test code = UA Spec 1.025 1 Grav) [facility] RvyalmlWHPWBBGQHP0879-95-32 21:58:00Yellow (08/19/2011 15:58:00) [facility] QqwppauNERQCNNDN7156-25-74 21:13:0023[facility] HermannCHEMISTRY 2011-08-19 21:13:001.0[facility] TfgxawwUNQCGCAYY5123-26-08 21:13:21472Rlqdohoz EtipzneVTQKOZNEP4490-38-04 21:13:0056[facility] PsgnnxxBPXVXLAEE3103-95-81 21:13:009.0[facility] UluszokPTSRVRZAR4598-30-20 21:13:004.8[facility] Vin MTOKUHZOJ1641-87-14 21:13:004.2[facility] KuenshrPBHAAYXGB9929-90-42 21:13:001.1 [facility] NflbaffGLTQCSQGE8437-77-10 21:13:0030[facility]annHEMATOLOGY 2011-08-19 21:13:00Normal (08/19/2011 15:13:00)[facility]annHEMATOLOGY 2011-08-19 21:13:00Slight *ABN*(08/19/2011 15:13:00)[facility]annHEMATOLOGY 2011-08-19 21:13:000.0[facility] EecogyhDLSMSITRLJ1117-94-14 21:13:000.0[facility] SzgiwxoYLTEYOEOB1337-95-07 21:10:0074.0[facility] YbcaumdBTEVKYDPI8077-78-61 21:10:0037.0[facility] JaxlwnqBYNVNWFEF9293-20-21 21:10:0042[facility] [place] JCPDPBYBR7531-94-59 21:10:0017.3[facility] ValxhayGKMRGBAEV9476-56-83 21:10:007.34 [facility] QdztdnqSWRLZIBLR2018-88-84 21:10:0032[facility] HermannCHEMISTRY 2011-08-19 21:10:00-7[facility] OcvksyqGJJRGFEJML4461-86-20 20:34:00Negative *NA*(08/19/2011 14:34:00)[facility]
[2020-12-12] MEDS ORDERED: NOREPINEPHRINE 4mg/D5W 250mL 4 MG/250 ML BAG IV ONE (15:32)
[2020-12-12] MEDS ORDERED: NA CHLORIDE 0.9% 1,000 ML ONE (15:32)
[2020-12-12] MEDS ORDERED: ONDANSETRON 4 MG/2 ML VIAL ONE ×2 (16:34→19:09)
[2020-12-12 17:47] LABS: Albumin 4.1 g/dL (3.4-5.0); Bilirubin Direct 0.2 mg/dL (0-0.2); Bilirubin Total 0.9 mg/dL (0.2-1.0); Protein, Total 8.3 g/dL (6.4-8.2)
[2020-12-12 17:48] LABS: Absolute Lymphocytes (CBC) 0.9 K/uL (0.7-4.9); Basophils % 0.8 % (0-1.3); MPV 11.3 fL (7.6-11.3); RBC Red Blood Cell Count 4.31 M/uL (3.86-4.86)
[2020-12-12] MEDS ORDERED: MEPERIDINE HCL 25 MG/ML SYR ONE ×2 (17:56→19:09)
--- NOTE | 2020-12-12 18:21 | EDPHYS ---
Physician Documentation [facility] Name: Cathi Zaldivar Age: 40 yrs Sex: Female : 1980 Arrival Date: 12/12/2020 Time: 15:09 Bed 30 Private MD: ED Physician Jose De Jesus Graf HPI: 12/12 18:21 This 40 yrs old Female presents to ER via Wheelchair with complaints of jr8 Abdominal Pain, Cough, Diarrhea, Breathing Difficulty. 18:21 Onset: The symptoms/episode began/occurred acutely, today. Associated signs and jr8 symptoms: none. The symptoms are described as crampy. Modifying factors: The symptoms are alleviated by nothing, the symptoms are aggravated by nothing. Severity of pain: At its worst the pain was moderate in the emergency department the pain is unchanged. The patient has experienced similar episodes in the past, several times. The patient has not recently seen a physician. Stated that she missed Wednesday dialysis . TWISTHAND: 15:38 LMP N/A - Irregular menses jd3 Historical: - Allergies: 15:38 ambien; jd3 15:38 Codeine; jd3 15:38 GUAIFENESIN; jd3 15:38 Ibuprofen; jd3 15:38 Lisinopril; jd3 15:38 Morphine; jd3 15:38 Nitrofurantoin Macrocrystal; jd3 15:38 PENICILLINS; jd3 15:38 Prolixin; jd3 15:38 zolpidem tartrate; jd3 - PMHx: 15:38 HD-TTHSat; Hypertension; liver failure; PERIPHERAL NEUROPATHY; Gastroparesis; Dialysis; jd3 m-w-f; Diabetes - NIDDM; chronic kidney disease; cyclic vomiting syndrome; "mental problems"; ENCEPHALOPATHY; Seizures; CHF; - Immunization history:: Adult Immunizations up to date. - Social history:: Smoking status: Patient reports the use of cigarette tobacco products, smokes one-half pack cigarettes per day. ROS: 18:21 Eyes: Negative for injury, pain, redness, and discharge, ENT: Negative for injury, jr8 pain, and discharge, Neck: Negative for injury, pain, and swelling, Cardiovascular: Negative for chest pain, palpitations, and edema, Back: Negative for injury and pain, MS/Extremity: Negative for injury and deformity, Skin: Negative for injury, rash, and discoloration, Neuro: Negative for headache, weakness, numbness, tingling, and seizure. 18:21 Respiratory: Positive for cough, shortness of breath, Negative for sputum production, wheezing. 18:21 Abdomen/GI: Positive for abdominal pain, diarrhea, abdominal cramps. Exam: 18:21 Eyes: Pupils equal round and reactive to light, extra-ocular motions intact. Lids and jr8 lashes normal. Conjunctiva and sclera are non-icteric and not injected. Cornea within normal limits. Periorbital areas with no swelling, redness, or edema. ENT: Nares patent. No nasal discharge, no septal abnormalities noted. Tympanic membranes are normal and external auditory canals are clear. Oropharynx with no redness, swelling, or masses, exudates, or evidence of obstruction, uvula midline. Mucous membranes moist. Neck: Trachea midline, no thyromegaly or masses palpated, and no cervical lymphadenopathy. Supple, full range of motion without nuchal rigidity, or vertebral point tenderness. No Meningismus. Cardiovascular: Regular rate and rhythm with a normal S1 and S2. No gallops, murmurs, or rubs. Normal PMI, no JVD. No pulse deficits. Respiratory: Lungs have equal breath sounds bilaterally, clear to auscultation and percussion. No rales, rhonchi or wheezes noted. No increased work of breathing, no retractions or nasal flaring. Abdomen/GI: Soft with mild diffuse tenderness, with normal bowel sounds. No distension or tympany. No guarding or rebound. No evidence of tenderness throughout. Back: No spinal tenderness. No costovertebral tenderness. Full range of motion. Skin: Warm, dry with normal turgor. Normal color with no rashes, no lesions, and no evidence of cellulitis. MS/ Extremity: Pulses equal, no cyanosis. Neurovascular intact. Full, normal range of motion. Neuro: Awake and alert, GCS 15, oriented to person, place, time, and situation. Cranial nerves II-XII grossly intact. Motor strength 5/5 in all extremities. Sensory grossly intact. Cerebellar exam normal. Normal gait. Vital Signs: 15:38 BP 201 / 89; Pulse 88; Resp 17 S; Temp 98.4(TE); Pulse Ox 99% on R/A; Weight 70.31 kg jd3 (R); Height 5 ft. 1 in. (154.94 cm) (R); Pain 10/10; 16:36 BP 118 / 93; Pulse 89; Resp 18; Pulse Ox 100% on R/A; ld1 17:24 BP 151 / 96; Pulse 76; Resp 18; Pulse Ox 99% on R/A; ld1 15:38 Body Mass Index 29.29 (70.31 kg, 154.94 cm) jd3 MDM: 16:12 Patient medically screened. jr8 18:19 Data reviewed: vital signs, nurses notes, lab test result(s), EKG, and as a result, I jr8 will admit patient. Data interpreted: Pulse oximetry: on room air is 99 %. Interpretation: normal. Counseling: I had a detailed discussion with the patient and/or guardian regarding: the historical points, exam findings, and any diagnostic results supporting the discharge/admit diagnosis, lab results, the need for further work-up and treatment in the hospital. ED course: Dr. Morin consulted and called dialysis nurse to do dialysis now. 12/12 16:13 Order name: Basic Metabolic Panel 12/12 16:13 Order name: CBC with Diff [facility] 12/12 16:13 Order name: Hepatic Function [facility] 12/12 16:13 Order name: Lipase [facility] 12/12 16:13 Order name: Basic Metabolic Panel; Complete Time: 17:58 EDAZ 12/12 16:13 Order name: Liver (Hepatic) Function; Complete Time: 17:58 EDAZ 12/12 16:14 Order name: CBC with Automated Diff; Complete Time: 18:12 EDAZ 12/12 16:14 Order name: Lipase; Complete Time: 17:58 [facility] 12/12 19:02 Order name: COVID-19 : Document "Date of Symptom Onset" if Symptomatic. 12/12 21:24 Order name: SARS-COV-2 RT PCR; Complete Time: 21:25 EDA[facility] 12/12 16:13 Order name: IV Saline Lock; Complete Time: 17:37 [facility] 12/12 16:13 Order name: Labs collected and sent; Complete Time: 17:37 [facility] 12/12 17:59 Order name: EKG; Complete Time: 17:59 [facility] Administered Medications: 17:37 Drug: Demerol (meperidine) 25 mg Route: IVP; Site: left wrist; ld1 17:37 Follow up: Response: No adverse reaction ld1 18:54 Drug: Calcium Gluconate 1 grams Route: IVPB; Infused Over: 60 mins; Site: left wrist; ld1 18:54 Drug: Albuterol 2.5 mg Route: Inhalation; ld1 18:54 Drug: Insulin Regular Human 10 units {Co-Signature: ss (Shannan Lynch RN).} Route: IVP; ld1 Site: left wrist; 18:55 Drug: D50W 50 ml Route: IVP; Site: left wrist; ld1 18:56 Not Given (Patient threw it up): Kayexalate (polystyrene) 30 grams PO once ld1 18:56 Drug: Zofran (Ondansetron) 4 mg Route: IVP; Site: left wrist; ld1 18:56 Follow up: Response: No adverse reaction ld1 18:56 Drug: Demerol (meperidine) 25 mg Route: IVP; Site: left wrist; ld1 18:56 Follow up: Response: No adverse reaction ld1 Disposition: 12/12/20 18:20 Hospitalization ordered by Enrique Villeda for Observation. Preliminary diagnosis are Hyperkalemia, Chronic kidney disease, stage 5. - Bed requested for Intensive Care Unit. - Status is Observation. em - Condition is Stable. - Problem is new. - Symptoms are unchanged. Signatures: Dispatcher [employer] Regulo Galarza RN RN em Roszak, Josh, PA PA [id number] Dorota Bond RN RN tl1 Peyman Negron RN RN jd3 Dibbern, Lauren RN RN ld1 Shannan looney Corrections: (The following items were deleted from the chart) 20:49 18:20 Hospitalization Ordered by Enrique Villeda DO for Observation. Preliminary tl1 diagnosis is Hyperkalemia; Chronic kidney disease, stage 5. Bed requested for Telemetry/MedSurg (observation). Status is Observation. Condition is Stable. Problem is new. Symptoms are unchanged. [email or web address] 21:30 20:49 12/12/2020 18:20 Hospitalization Ordered by Enrique Villeda DO for Observation. tl1 Preliminary diagnosis is Hyperkalemia; Chronic kidney disease, stage 5. Bed requested for Telemetry/MedSurg (observation). Status is Observation. Condition is Stable. Problem is new. Symptoms are unchanged. tl1 22:05 21:30 12/12/2020 18:20 Hospitalization Ordered by Enrique Villeda DO for Observation. em Preliminary diagnosis is Hyperkalemia; Chronic kidney disease, stage 5. Bed requested for Intensive Care Unit. Status is Observation. Condition is Stable. Problem is new. Symptoms are unchanged. tl1
--- NOTE | 2020-12-12 18:21 | ER ---
Nurse's Notes [facility] Name: Cathi Zaldivar Age: 40 yrs Sex: Female : 1980 Arrival Date: 12/12/2020 Time: 15:09 Bed 30 Private MD: Diagnosis: Hyperkalemia;Chronic kidney disease, stage 5 Presentation: 12/12 15:36 Chief complaint: Patient states: "I woke up from my nap with a bad headache, stomach jd3 pain, diarrhea, and I felt like I could not breath. dialysis MWF and missed Wednesday.". Coronavirus screen: At this time, the client does not indicate any symptoms associated with coronavirus-19. Ebola Screen: Patient negative for fever greater than or equal to 101.5 degrees Fahrenheit, and additional compatible Ebola Virus Disease symptoms. Initial Sepsis Screen: Does the patient meet any 2 criteria? No. Patient's initial sepsis screen is negative. Does the patient have a suspected source of infection? No. Patient's initial sepsis screen is negative. Risk Assessment: Do you want to hurt yourself or someone else? Patient reports no desire to harm self or others. Onset of symptoms was December 12, 2020. 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 - Social history:: Smoking status: Patient reports the use of cigarette tobacco products, smokes one-half pack cigarettes per day. Screenin:36 Abuse screen: Denies threats or abuse. Denies injuries from another. Nutritional ld1 screening: No deficits noted. Tuberculosis screening: No symptoms or risk factors identified. Fall Risk None identified. Assessment: 16:36 General: Appears in no apparent distress. uncomfortable, Behavior is calm, cooperative, ld1 appropriate for age. Pain: Complains of pain in abdomen Pain does not radiate. Pain currently is 8 out of 10 on a pain scale. Quality of pain is described as burning, throbbing, Pain began 4 hours ago. Is continuous. Neuro: Level of Consciousness is awake, alert, obeys commands, Oriented to person, place, time, situation, Appropriate for age. Cardiovascular: Capillary refill < 3 seconds Patient's skin is warm and dry. Respiratory: Airway is patent Respiratory effort is even, unlabored, Respiratory pattern is regular, symmetrical. GI: Abdomen is flat, non-distended, Pt is actively vomiting clear fluid, Bowel sounds present X 4 quads. Abd is soft Abdomen is tender to palpation X 4 quads. : No signs and/or symptoms were reported regarding the genitourinary system. EENT: No signs and/or symptoms were reported regarding the EENT system. Derm: No signs and/or symptoms reported regarding the dermatologic system. Musculoskeletal: No signs and/or symptoms reported regarding the musculoskeletal system. 17:24 Reassessment: No changes from previously documented assessment. Patient is alert, ld1 oriented x 3, equal unlabored respirations, skin warm/dry/pink. 18:00 Reassessment: Pt transferred by stretcher with tech to 2nd floor to receive dialysis. ld1 Vital Signs: 15:38 BP 201 / 89; Pulse 88; Resp 17 S; Temp 98.4(TE); Pulse Ox 99% on R/A; Weight 70.31 kg jd3 (R); Height 5 ft. 1 in. (154.94 cm) (R); Pain 10/10; 16:36 BP 118 / 93; Pulse 89; Resp 18; Pulse Ox 100% on R/A; ld1 17:24 BP 151 / 96; Pulse 76; Resp 18; Pulse Ox 99% on R/A; ld1 15:38 Body Mass Index 29.29 (70.31 kg, 154.94 cm) jd3 ED Course: 15:00 No provider procedures requiring assistance completed. Inserted saline lock: 20 gauge ld1 in left wrist, using aseptic technique. Blood collected. 15:09 Patient arrived in ED. mr 15:37 Triage completed. jd3 15:38 Arm band placed on. jd3 16:12 Hermilo Carpio PA is PHCP. jr8 16:12 Jose De Jesus Graf MD is Attending Physician. jr8 16:13 Sarah Clark, TABATHA is Primary Nurse. ld1 16:36 Patient has correct armband on for positive identification. Placed in gown. Bed in low ld1 position. Call light in reach. Side rails up X2. Pulse ox on. NIBP on. 18:20 Enrique Villeda DO is Hospitalizing Provider. jr8 Administered Medications: 17:37 Drug: Demerol (meperidine) 25 mg Route: IVP; Site: left wrist; ld1 17:37 Follow up: Response: No adverse reaction ld1 18:54 Drug: Calcium Gluconate 1 grams Route: IVPB; Infused Over: 60 mins; Site: left wrist; ld1 18:54 Drug: Albuterol 2.5 mg Route: Inhalation; ld1 18:54 Drug: Insulin Regular Human 10 units {Co-Signature: ss (Shannan Lynch RN).} Route: IVP; ld1 Site: left wrist; 18:55 Drug: D50W 50 ml Route: IVP; Site: left wrist; ld1 18:56 Not Given (Patient threw it up): Kayexalate (polystyrene) 30 grams PO once ld1 18:56 Drug: Zofran (Ondansetron) 4 mg Route: IVP; Site: left wrist; ld1 18:56 Follow up: Response: No adverse reaction ld1 18:56 Drug: Demerol (meperidine) 25 mg Route: IVP; Site: left wrist; ld1 18:56 Follow up: Response: No adverse reaction ld1 Outcome: 18:20 Decision to Hospitalize by Provider. jr8 21:39 Admitted to ICU ld1 21:39 Condition: stable 22:05 Patient left the ED. em Signatures: Adela Reyes mr RneeRegulo RN TABATHA em Hermilo Carpio PA PA jr8 Peyman Negron RN RN jd3 Dibbern, Lauren, RN RN ld1 Shannan Lynch RN ss Corrections: (The following items were deleted from the chart) 15:38 15:36 Chief complaint: Patient states: "I woke up from my nap with a bad headache, jd3 stomach pain, diarrhea, and I felt like I could not breath." jd3 15:42 15:36 Acuity: JESSICA 3 jd3 jd3
[2020-12-12] MEDS ORDERED: ALBUTEROL 2.5 MG/3 ML NEB SOL ONE (18:39)
[2020-12-12] MEDS ORDERED: INSULIN -REGULAR HUMAN 50 UNIT/0.5 ML ML ONE (18:40)
[2020-12-12] MEDS ORDERED: SOD POLYSTYREN SUL 15 GM/60 ML UCUP ONE (18:40)
[2020-12-12] MEDS ORDERED: CALCIUM GLUCONATE 1 GM IVPB 1 GM/50 ML BAG IV ONE (18:40)
[2020-12-12] MEDS ORDERED: D50W 25 GM/50 ML SYRINGE IV ONE ×2 (18:41→23:39)
--- NOTE | 2020-12-12 20:09 | P.HP ---
Certification for Inpatient Patient admitted to: Observation With expected LOS: <2 Midnights Patient will require the following post-hospital care: None Practitioner: I am a practitioner with admitting privileges, knowledge of patient current condition, hospital course, and medical plan of care. Services: Services provided to patient in accordance with Admission requirements found in Title 42 Section 412.3 of the Code of Federal Regulations Patient History Date of Service: 12/12/20 Primary Care Provider: Dr. Morin Reason for admission: Hyperkalemia History of Present Illness: 40-year-old female with history of ESRD on HD, CHF, hypertension, diabetes mellitus type 2, seizure disorder presents emergency department for nausea, vomiting, abdominal pain. Patient reports that she missed dialysis on Wednesday. Patient evaluated in the emergency department, labs significant for potassium 7.0 creatinine 8.1 GFR 6 glucose 72 BUN 51. Patient's rn relief charge was contacted immediately and is arranging for dialysis, otherwise patient appears to be doing ok but is still with some nausea similar to her previous prese ntations for gastroparesis. Will admit for further evaluation and management. Allergies zolpidem tartrate [From Ambien] Allergy (Intermediate, Verified 10/17/16 23:08) Itching/Hives/Rash codeine [Codeine] Allergy (Verified 10/17/16 23:08) Hives fluphenazine enanthate [From Prolixin] Allergy (Verified 10/17/16 23:08) ARM NUMBNESS fluphenazine HCl [From Prolixin] Allergy (Verified 10/17/16 23:08) ARM NUMBNESS guaifenesin [From Prolex D] Allergy (Verified 10/17/16 23:08) Hives lisinopril Allergy (Verified 04/21/17 10:26) Anaphylaxis morphine Allergy (Verified 10/01/20 10:03) Itching Penicillins Allergy (Verified 10/17/16 23:08) Hives phenylephrine HCl [From Prolex D] Allergy (Verified 10/17/16 23:08) Hives nitrofurantoin Adverse Reaction (Verified 08/07/17 23:41) liver failure Home Medications: Calcium Acetate [Phoslo*] 2 cap PO TIDWM 03/05/20 Calcium Acetate [Phoslo*] 667 mg PO SNACKS 03/05/20 Divalproex Sodium [Divalproex Sodium ER] 500 mg PO BID 03/05/20 Linagliptin [Tradjenta] 5 mg PO DAILY 03/05/20 Sertraline [Zoloft*] 50 mg PO DAILY 03/05/20 Trazodone HCl 150 mg PO BEDTIME PRN PRN 03/05/20 Pantoprazole Sodium [Protonix] 1 tab PO DAILY 30 Days #30 tablet. 03/06/20 Gabapentin 1 tab PO BID 07/22/20 Metoprolol Succinate 25 mg PO DAILY 07/22/20 Pravastatin Sodium 1 tab PO DAILY 07/22/20 Doxazosin [Cardura*] 4 mg PO BEDTIME 09/30/20 Folic Acid/Vit B Complex and C [Dialyvite 800 Chewable Wafer] 1 tab PO DAILY 09/30/20 Furosemide [Lasix*] 40 mg PO BID 09/30/20 Metoclopramide [Reglan*] 5 ml PO TID 30 Days #45 ucup 10/01/20 Ondansetron [Zofran (Odt)*] 4 mg PO Q8H PRN 14 Days #30 tab 10/01/20 Ascorbate Calcium [Vitamin C] 500 mg PO TID #90 tablet 10/28/20 Sucralfate [Carafate*] 1 gm PO ACHS #90 tab 10/28/20 Zinc Sulfate [Zinc Sulfate*] 220 mg PO DAILY #30 cap 10/28/20 predniSONE [Prednisone*] 20 mg PO BID #21 tab 10/28/20 Calcitrol [Rocaltrol*] 0.5 mcg PO DAILY #30 cap 11/07/20 Hydralazine HCl 25 mg PO TID #90 tablet 11/07/20 Hydrocodone 10/APAP 325 [[place] 10/325] 1 tab PO Q12H PRN #40 tab 11/07/20 Nepro Shake [Nepro*] 237 ml PO TID #60 can 11/07/20 - Past Medical/Surgical History Diabetic: Yes -: DM Type 2 -: Seizure disorder -: ESRD on HD -: DM Gastroparesis -: DM Neuropathy -: Insomnia -: Obesity -: JAYLA -: Hypertension -: Post traumatic stress disorder -: Schizoaffective disorder -: CHF, diastolic -: I/D of the right elbow -: 2 previous C-sections -: Tubal ligation Psychosocial/ Personal History: She is , she has 2 children, she does not work. - Family History Mother -: Hypertension, Diabetes, Cancer, Other (see notes) Notes: hypothyroid, asthma, breast cancer Father -: Diabetes, Cancer Notes: - stomach/ lung/ prostate cancer, diabetes - Social History Alcohol use: No CD- Drugs: No Caffeine use: Yes Review of Systems 10-point ROS is otherwise unremarkable Gastrointestinal: Nausea, Vomiting Physical Examination - Physical Exam General: Alert, In no apparent distress HEENT: Atraumatic, PERRLA, Mucous membr. moist/pink, EOMI, Sclerae nonicteric Neck: Supple, 2+ carotid pulse no bruit, No LAD, Without JVD or thyroid abnormality Respiratory: Clear to auscultation bilaterally, Normal air movement Cardiovascular: Regular rate/rhythm, Normal S1 S2 Gastrointestinal: Normal bowel sounds, No tenderness Musculoskeletal: No tenderness Integumentary: No rashes Neurological: Normal gait, Normal speech, Normal strength at 5/5 x4 extr, Normal tone, Normal affect Lymphatics: No axilla or inguinal lymphadenopathy - Studies Laboratory Data (last 24 hrs) 12/12/20 17:10: WBC 5.90, Hgb 12.7, Hct 40.0, Plt Count 135 L 12/12/20 17:10: Sodium 136, Potassium 7.0 H*, BUN 51 H, Creatinine 8.10 H*, Glucose 72 L, Total Bilirubin 0.9, AST 41 H, ALT 23, Alkaline Phosphatase 50, Lipase 307 Assessment and Plan - Plan Assessment ESRD on HD MWF with noncompliance and hyperkalemia Nausea/vomiting secondary to gastroparesis Chronic diastolic congestive heart failure Diabetes mellitus type 2 Hypertension Seizure disorder Plan ESRD on HD MWF with noncompliance and hyperkalemia: Patient reports that she missed dialysis on Wednesday, potassium significantly elevated at 7.0, patient given potassium cocktail in the emergency department and Nephrology was contacted. Nephrology arranging for dialysis immediately. Will recheck labs tomorrow morning, possible discharge if she is tolerating p.o.. Nausea/vomiting secondary to gastroparesis: Patient with frequent bouts of gastroparesis, vomiting, will continue with Zofran/Phenergan/Reglan p.r.n.. Anticipate clinical improvement overnight. Chronic diastolic congestive heart failure: Stable, continue home medications. Diabetes mellitus type 2: Stable continue home medications Hypertension: Stable continue medications Seizure disorder: Continue home meds, last seizure 6 years ago Discharge Plan: Home Plan to discharge in: 24 Hours - Advance Directives Does patient have a Living Will: Yes Does patient have a Durable POA for Healthcare: Yes - Code Status/Comfort Care Code Status Assessed: Yes (Full code) Critical Care: No Time Spent Managing Pts Care (In Minutes): 55
[2020-12-12] MEDS ORDERED: HEPARIN 5000 UNIT/ML 1 ML VIAL SQ SCH (21:39)
[2020-12-12] MEDS ORDERED: PROMETHAZINE INJ 25 MG/ML AMP IV PRN (21:39)
[2020-12-12] MEDS ORDERED: INSULIN -REGULAR HUMAN 50 UNIT/0.5 ML ML SQ SCH (21:39)
[2020-12-12] MEDS ORDERED: GLUCAGON 1 MG/VIAL ONE ×2 (23:47→23:48)
[2020-12-13] MEDS: ONDANSETRON 4 MG/2 ML VIAL IV PRN ×3 (00:02→17:35)
[2020-12-13] MEDS: FENTANYL CITR 100 MCG/2 ML IV PRN ×4 (00:02→14:30)
[2020-12-13] MEDS: METOCLOPRAMIDE 10 MG/2mL INJ IV PRN ×2 (00:02→11:07)
[2020-12-13 00:48] VITALS: BMI 29.1
[2020-12-13] MEDS ORDERED: D50W 25 GM/50 ML SYRINGE IV PRN (03:22)
[2020-12-13] MEDS ORDERED: GLUCAGON 1 MG/VIAL IM PRN (03:22)
[2020-12-13] MEDS ORDERED: D50W 25 GM/50 ML SYRINGE IV ONE (03:28)
--- NOTE | 2020-12-13 05:55 | P.DS ---
Admission Date: 12/12/20 Discharge Date: 12/13/20 Primary Care Provider: Dr. Morin Disposition: ROUTINE DISCHARGE Discharge Condition: GOOD Reason for Admission: Hyperkalemia Consultations: Nephrology-Dr. Morin Procedures: COVID: Positive Medical Problem List: ESRD on HD MWF with noncompliance and hyperkalemia Nausea/vomiting secondary to chronic gastroparesis Chronic diastolic congestive heart failure Diabetes mellitus type 2 Hypertension Seizure disorder GERD Anemia of chronic disease Asymptomatic COVID 19 Brief History of Present Illness: 40-year-old female with history of ESRD on HD, CHF, hypertension, diabetes mellitus type 2, seizure disorder presents emergency department for nausea, vomiting, abdominal pain. Patient reports that she missed dialysis on Wednesday. Patient evaluated in the emergency department, labs significant for potassium 7.0 creatinine 8.1 GFR 6 glucose 72 BUN 51. Patient's magneto specialist was contacted immediately and is arranging for dialysis, otherwise patient appears to be doing ok but is still with some nausea similar to her previous presentations for gastroparesis. Will admit for further evaluation and management. Hospital Course: Patient presented with nausea and vomiting secondary to noncompliance with her end-stage renal disease. Patient on hemodialysis every Wednesday, Wednesday and Wednesday. She apparently missed Wednesday. In the ER she was found to be hypokalemic. Patient was admitted for treatment. Case discussed with nephrology. Patient to receive dialysis. Compliance with hemodialysis address in detail. Patient understands the importance of this. Patient overall stable. Patient will be discharged home. She will continue with hemodialysis every Wednesday, Wednesday and Wednesday. Recommend follow up with nephrology as directed. Patient with chronic gastroparesis. Patient will continue with Phenergan and Reglan at home. Patient also takes Protonix and Carafate. Recommend follow up with GI to further address Patient with chronic medical issues including CHF, GERD, diabetes mellitus type 2, hypertension, End seizure disorder. At discharge she will continue with her current medication. Recommend to increase oral intake. Patient may need to supplement with Nepro. Continue with current medications. Recommend follow up with nephrology as directed. Patient also uses home oxygen. She will continue with oxygen to maintain sats above 93%. Patient was positive for COVID. Patient appears to be asymptomatic. Patient will finish tapering of prednisone. Vital Signs/Physical Exam: Temp Pulse Resp BP Pulse Ox 97.7 F 73 18 137/46 L 98 12/13/20 04:00 12/13/20 04:00 12/13/20 04:00 12/13/20 04:00 12/13/20 04:00 General: Alert, In no apparent distress, Oriented x3 HEENT: Atraumatic Neck: Supple Respiratory: Clear to auscultation bilaterally, Normal air movement Cardiovascular: Normal pulses, Regular rate/rhythm Gastrointestinal: Normal bowel sounds, No masses, No rebound, No guarding Musculoskeletal: No erythema, No tenderness, No warmth Neurological: Normal speech, Normal strength at 5/5 x4 extr, Normal tone, Normal affect Laboratory Data at Discharge: WBC 5.90 K/uL (4.3-10.9) 12/12/20 17:10 Hgb 12.7 g/dL (12.0-15.0) 12/12/20 17:10 Hct 40.0 % (36.0-45.0) 12/12/20 17:10 Plt Count 135 K/uL (152-406) L 12/12/20 17:10 Sodium 136 mmol/L (136-145) 12/12/20 17:10 Potassium 7.0 mmol/L (3.5-5.1) H* 12/12/20 17:10 BUN 51 mg/dL (7-18) H 12/12/20 17:10 Creatinine 8.10 mg/dL (0.55-1.3) H* 12/12/20 17:10 Glucose 72 mg/dL (74-106) L 12/12/20 17:10 Total Bilirubin 0.9 mg/dL (0.2-1.0) 12/12/20 17:10 AST 41 U/L (15-37) H 12/12/20 17:10 ALT 23 U/L (12-78) 12/12/20 17:10 Alkaline Phosphatase 50 U/L (45-117) 12/12/20 17:10 Lipase 307 U/L (73-393) 12/12/20 17:10 Home Medications: Calcium Acetate [Phoslo*] 2 cap PO TIDWM 03/05/20 Calcium Acetate [Phoslo*] 667 mg PO SNACKS 03/05/20 Divalproex Sodium [Divalproex Sodium ER] 500 mg PO BID 03/05/20 Linagliptin [Tradjenta] 5 mg PO DAILY 03/05/20 Sertraline [Zoloft*] 50 mg PO DAILY 03/05/20 Trazodone HCl 150 mg PO BEDTIME PRN PRN 03/05/20 Pantoprazole Sodium [Protonix] 1 tab PO DAILY 30 Days #30 tablet. 03/06/20 Gabapentin 1 tab PO BID 07/22/20 Metoprolol Succinate 25 mg PO DAILY 07/22/20 Pravastatin Sodium 1 tab PO DAILY 07/22/20 Doxazosin [Cardura*] 4 mg PO BEDTIME 09/30/20 Folic Acid/Vit B Complex and C [Dialyvite 800 Chewable Wafer] 1 tab PO DAILY 09/30/20 Furosemide [Lasix*] 40 mg PO BID 09/30/20 Metoclopramide [Reglan*] 5 ml PO TID 30 Days #45 ucup 10/01/20 Ondansetron [Zofran (Odt)*] 4 mg PO Q8H PRN 14 Days #30 tab 10/01/20 Ascorbate Calcium [Vitamin C] 500 mg PO TID #90 tablet 10/28/20 Sucralfate [Carafate*] 1 gm PO ACHS #90 tab 10/28/20 Zinc Sulfate [Zinc Sulfate*] 220 mg PO DAILY #30 cap 10/28/20 predniSONE [Prednisone*] 20 mg PO BID #21 tab 10/28/20 Calcitrol [Rocaltrol*] 0.5 mcg PO DAILY #30 cap 11/07/20 Hydralazine HCl 25 mg PO TID #90 tablet 11/07/20 Hydrocodone 10/APAP 325 [[place] 10/325*] 1 tab PO Q12H PRN #40 tab 11/07/20 Nepro Shake [Nepro*] 237 ml PO TID #60 can 11/07/20 Physician Discharge Instructions: Patient presented with nausea and vomiting secondary to noncompliance with her end-stage renal disease. Patient on hemodialysis every Wednesday, Wednesday and Wednesday. She apparently missed Wednesday. In the ER she was found to be hypokalemic. Patient was admitted for treatment. Case discussed with nephrology. Patient to receive dialysis. Compliance with hemodialysis address in detail. Patient understands the importance of this. Patient overall stable. Patient will be discharged home. She will continue with hemodialysis every Wednesday, Wednesday and Wednesday. Recommend follow up with nephrology as directed. Patient with chronic gastroparesis. Patient will continue with Phenergan and Reglan at home. Patient also takes Protonix and Carafate. Recommend follow up with GI to further address Patient with chronic medical issues including CHF, GERD, diabetes mellitus type 2, hypertension, End seizure disorder. At discharge she will continue with her current medication. Recommend to increase oral intake. Patient may need to supplement with Nepro. Continue with current medications. Recommend follow up with nephrology as directed. Patient also uses home oxygen. She will continue with oxygen to maintain sats above 93%. Patient was positive for COVID. Patient appears to be asymptomatic. Patient will finish tapering of prednisone. Diet: Renal Activity: Fall precautions Followup: Jose Miguel Morin DO [Primary Care Provider] - Time spent managing pt's care (in minutes): 55
[2020-12-13] MEDS: INSULIN -REGULAR HUMAN 50 UNIT/0.5 ML ML SQ SCH ×3 (07:19→16:17)
[2020-12-13 07:29] LABS: Absolute Lymphocytes (CBC) 0.5 K/uL (0.7-4.9); Basophils % 0.7 % (0-1.3); Hematocrit 31.8 % (36.0-45.0); Lymphocytes % 11.1 % (15.3-44.8); MPV 10.5 fL (7.6-11.3); RBC Red Blood Cell Count 3.46 M/uL (3.86-4.86)
[2020-12-13] MEDS ORDERED: D50W 50 ML IV ONE (07:34)
[2020-12-13 07:51] LABS: Albumin 3.2 g/dL (3.4-5.0); Bilirubin Total 0.6 mg/dL (0.2-1.0); Magnesium 1.9 mg/dL (1.8-2.4); Potassium 4.8 mmol/L (3.5-5.1); Protein, Total 6.3 g/dL (6.4-8.2)
[2020-12-13 09:17] LABS: Platelet Estimate DECR; White Blood Cell Scan OK (OK)
[2020-12-13 09:18] LABS: Anisocytosis 2+; Blood Morphology Comment NOTED (NOT SEEN); Ovalocytes 1+
--- NOTE | 2020-12-13 10:59 | P.CNS ---
Date of Consult: 12/13/20 Reason for Consult: ESRD Requesting Physician: Enrique Villeda Primary Care Provider: Dr. Morin Chief Complaint: Hyperkalemia History of Present Illness: 40 yo HF CKD, HTN, DM presented to the ER with moderate, progressive malaise in the setting of missed dialysis with hyperkalemia. +Nausea and anorexia. 18:21 This 40 yrs old Female presents to ER via Wheelchair with complaints of jr8 Abdominal Pain, Cough, Diarrhea, Breathing Difficulty. 18:21 Onset: The symptoms/episode began/occurred acutely, today. Associated signs and jr8 symptoms: none. The symptoms are described as crampy. Modifying factors: The symptoms are alleviated by nothing, the symptoms are aggravated by nothing. Severity of pain: At its worst the pain was moderate in the emergency department the pain is unchanged. The patient has experienced similar episodes in the past, several times. The patient has not recently seen a physician. Stated that she missed Wednesday dialysis Allergies zolpidem tartrate [From Ambien] Allergy (Intermediate, Verified 10/17/16 23:08) Itching/Hives/Rash codeine [Codeine] Allergy (Verified 10/17/16 23:08) Hives fluphenazine enanthate [From Prolixin] Allergy (Verified 10/17/16 23:08) ARM NUMBNESS fluphenazine HCl [From Prolixin] Allergy (Verified 10/17/16 23:08) ARM NUMBNESS guaifenesin [From Prolex D] Allergy (Verified 10/17/16 23:08) Hives lisinopril Allergy (Verified 04/21/17 10:26) Anaphylaxis morphine Allergy (Verified 10/01/20 10:03) Itching Penicillins Allergy (Verified 10/17/16 23:08) Hives phenylephrine HCl [From Prolex D] Allergy (Verified 10/17/16 23:08) Hives nitrofurantoin Adverse Reaction (Verified 08/07/17 23:41) liver failure Home medications list reviewed: Yes Home Medications: Calcium Acetate [Phoslo*] 2 cap PO TIDWM 03/05/20 Calcium Acetate [Phoslo*] 667 mg PO SNACKS 03/05/20 Divalproex Sodium [Divalproex Sodium ER] 500 mg PO BID 09/15/20 Linagliptin [Tradjenta] 5 mg PO DAILY 03/05/20 Sertraline [Zoloft*] 50 mg PO DAILY 03/05/20 Trazodone HCl 150 mg PO BEDTIME PRN PRN 03/05/20 Pantoprazole Sodium [Protonix] 1 tab PO DAILY 30 Days #30 tablet. 03/06/20 Gabapentin 1 tab PO BID 07/22/20 Metoprolol Succinate 25 mg PO DAILY 07/22/20 Pravastatin Sodium 1 tab PO DAILY 07/22/20 Doxazosin [Cardura*] 4 mg PO BEDTIME 09/30/20 Folic Acid/Vit B Complex and C [Dialyvite 800 Chewable Wafer] 1 tab PO DAILY 09/30/20 Furosemide [Lasix*] 40 mg PO BID 09/30/20 Metoclopramide [Reglan*] 5 ml PO TID 30 Days #45 ucup 10/01/20 Ondansetron [Zofran (Odt)*] 4 mg PO Q8H PRN 14 Days #30 tab 10/01/20 Ascorbate Calcium [Vitamin C] 500 mg PO TID #90 tablet 10/28/20 Sucralfate [Carafate*] 1 gm PO ACHS #90 tab 10/28/20 Zinc Sulfate [Zinc Sulfate*] 220 mg PO DAILY #30 cap 10/28/20 predniSONE [Prednisone*] 20 mg PO BID #21 tab 10/28/20 Calcitrol [Rocaltrol*] 0.5 mcg PO DAILY #30 cap 11/07/20 Hydralazine HCl 25 mg PO TID #90 tablet 11/07/20 Hydrocodone 10/APAP 325 [[place] 10/325] 1 tab PO Q12H PRN #40 tab 11/07/20 Nepro Shake [Nepro*] 237 ml PO TID #60 can 11/07/20 - Past Medical/Surgical History Diabetic: Yes -: DM Type 2 -: Seizure disorder -: ESRD on HD -: DM Gastroparesis -: DM Neuropathy -: Insomnia -: Obesity -: JAYLA -: Hypertension -: Post traumatic stress disorder -: Schizoaffective disorder -: CHF, diastolic -: I/D of the right elbow -: 2 previous C-sections -: Tubal ligation Psychosocial/ Personal History: She is , she has 2 children, she does not work. - Family History Mother Medical History: Hypertension, Diabetes, Cancer, Other (see notes) Notes: hypothyroid, asthma, breast cancer Father Medical History: Diabetes, Cancer Notes: - stomach/ lung/ prostate cancer, diabetes - Social History Smoking Status: Current every day smoker Alcohol use: No CD- Drugs: No Caffeine use: Yes Place of Residence: Home Review of Systems 10-point ROS is otherwise unremarkable General: Weakness, Malaise Gastrointestinal: Nausea Neurological: Weakness Physical Examination Temp Pulse Resp BP Pulse Ox 98.8 F 81 21 H 130/63 95 12/13/20 08:00 12/13/20 08:00 12/13/20 08:00 12/13/20 08:00 12/13/20 08:00 General: Oriented x3, Cooperative HEENT: Atraumatic Neck: Supple Respiratory: Clear to auscultation bilaterally Cardiovascular: Regular rate/rhythm, Edema Gastrointestinal: Soft and benign Musculoskeletal: No clubbing, No contractures Integumentary: No rashes, No cyanosis Neurological: Normal speech Laboratory Data (last 24 hrs) 12/12/20 17:10: WBC 5.90, Hgb 12.7, Hct 40.0, Plt Count 135 L 12/12/20 17:10: Sodium 136, Potassium 7.0 H*, BUN 51 H, Creatinine 8.10 H*, Glucose 72 L, Total Bilirubin 0.9, AST 41 H, ALT 23, Alkaline Phosphatase 50, Lipase 307 Conclusions/Impression: ESRD -Acute HD ordered Hyperkalemia -Acute HD ordered -Renal diet HTN with CKD/ CHF -Hold antihypertensive therapy at this time. Diastolic CHF, chronic -Low sodium diet DM II with CKD, Polyneuropathy, Gastroparesis and Hyperglycemia -RISS -Reglan prn Anemia in CKD -Retacrit PRN DUSTIN/ Secondary HyperPTH -Start Vitamin D Case reviewed with Dr. Villeda Thank you kindly for the consultation.
[2020-12-13 12:13] VITALS: O2SAT 100
[2020-12-13 16:21] VITALS: BP 122/31; TEMP 99.1
[2020-12-13] MEDS ORDERED: NEPRO SHAKE 237 ML CAN PO SCH (21:00)
[2020-12-14] MEDS ORDERED: CALCITROL 0.25 MCG CAP PO SCH (09:00)
[2020-12-14] MEDS ORDERED: VITAMIN D 5,000 UNIT CAP PO SCH (09:00)
== END 2020-12-13 17:45 | disposition home or self-care (01) ==
LOC: ER 15:04 → ERHOLD 19:10 → 3RD-ICU 23:22
PROVIDERS: ADMIT Family Medicine; ATTEND Family Medicine
DX: E87.5 Hyperkalemia (principal); I13.2 Hypertensive heart and chronic kidney disease with heart failure and with stage 5 chronic kidney disease, or end stage renal disease; N18.6 End stage renal disease; Z99.2 Dependence on renal dialysis; Z91.15 Patient's noncompliance with renal dialysis; D63.1 Anemia in chronic kidney disease; I50.32 Chronic diastolic (congestive) heart failure; E11.22 Type 2 diabetes mellitus with diabetic chronic kidney disease; E11.43 Type 2 diabetes mellitus with diabetic autonomic (poly)neuropathy; U07.1 COVID-19; K31.84 Gastroparesis; G40.909 Epilepsy, unspecified, not intractable, without status epilepticus; G47.00 Insomnia, unspecified; E66.9 Obesity, unspecified; G47.33 Obstructive sleep apnea (adult) (pediatric); F43.10 Post-traumatic stress disorder, unspecified; F25.9 Schizoaffective disorder, unspecified; E11.42 Type 2 diabetes mellitus with diabetic polyneuropathy; E11.65 Type 2 diabetes mellitus with hyperglycemia; N25.81 Secondary hyperparathyroidism of renal origin
CPT/HCPCS: 85025 ×2; 80048; 36415; 83735; 82947 ×11; 80076; 83690; 80053; 90935 ×2; U0003; J1610 ×2; J2765 ×2; J1644 ×2; J3010 ×4; J2175 ×2; J0610; J7030; J2405 ×5; G0378

== ENCOUNTER 2020-12-20 17:20 | Emergency (ER) | payer OTHER ==
--- OUTSIDE RECORDS SUMMARY | 2020-12-20 17:44 | XMS REPORT | Continuity of Care Document ---
:1980 Author Organization [facility] t Address [address] [place] [address] Care Team Providers Name Role Phone Sharpless [...] Date Treatment Clinician Date NEW Diagnosis Active 2020-12-20 Blas funes PATIENT GI 4-26 10:26:00 l CONSULT NEW 00:00: Vin REFRACTORY PATIENT GI 00 GASTRO CONSULT REFRACTORY GASTRO Active 10/14/2020 [facility] NEW Diagnosis Active 2018-07-26 Mem oria EVALUATION 07-12 09:39:00 l NEW 00:00: [place] EVALUATION 00 Active 07/12/2018 [facility] Liver Liver Disease Active [facility] failure, failure, 7[facility] acute acute 00:00: Medical 00 [place] SANJUANA (acute SANJUANA (acute Disease Active [facility] kidney kidney 7-16 [facility] - injury) injury) 00:00: Medical 00 [place] CKD CKD Disease Active [facility] (chronic (chronic 7-16 [facility] - kidney kidney 00:00: Medical disease) disease) 00 Center Acute Acute Disease Active [facility] encephalop encephalop 7-16 Pati kes - athy athy 00:00: Medical 00 [place] Ulcer of Ulcer of Disease [facility] toe [facility] toe of [facility] - left foot left foot 00:00: Medi tawnya 00 [place] Peripheral Peripheral Disease Active [facility] neuropathy neuropathy 7-16 Pati kes - 00:00: Medical 00 [place] Hyperglyce Hyperglyce Disease Active [facility]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 00:00: Medical diabetes diabetes 00 Center mellitus mellitus Gastropare Gastropare Disease Active [facility] sis due to sis due to 7-16 Pati kes - DM DM 00:00: Medical 00 [place] Cyclic Cyclic Disease Active [facility] vomiting vomiting 7-16 [facility] - syndrome syndrome 00:00: Medica l 00 Center Anxiety Anxiety Disease Active [facility] 7[facility]16 [facility] - 00:[facility]: Medical 00 [place] Bipolar Bipolar Disease Active [facility] disorder disorder 7-16 [facility] - 00:[facility]: Medical 00 [place] Hypertensi Hypertensi Disease Active [facility] ve ve 7-16 [facility] - emergency emergency 00:00: Medi tawnya 00 Center CONGESTION Diagnosis Active 2016-07-24 Memoria AMD 2- 01:49:00 l DIARRHEA 00:00: [place] CONGESTION 00 AMD DIARRHEA Active 07/23/2016 [facility] ACUTE RESP Diagnosis Active 2016-09-09 Memoria FAILURE 2- 09:11:00 l ACUTE 00:00: [place] RESP 00 FAILURE Active 07/23/2016 [facility] SOB/SWELLI Diagnosis Active 2015-062016-06-10 Memoria NG 2- 15:48:00 l 00:00: [place] SOB/SWELLI 00 NG Active 6 [facility] CHF/RENAL Diagnosis Active 2015-062016-06-24 Memoria DISEASE 2- 15:35:00 l 00:00: [place] CHF/RENAL 00 DISEASE Active 06/10/2016 [facility] ABDOMINAL Diagnosis Active 2014-06-26 Memoria PAIN, 1- 05:44:00 l SEIZURES 00:00: [place] ABDOMINAL 00 PAIN, SEIZURES Active 06/26/2013 [facility] ABD PAIN Diagnosis Active 2012-062013-04-19 M emoria 0 21:51:00 l ABD PAIN 19:00: Jake n 00 Active 04/14/2013 [place] GASTROPERI Diagnosis Active 2012-09-13 Memoria SIS 2- 15:17:00 l 00:00: Vin GASTROPERI 00 SIS Active 08/02/2012 [facility] ABDOMINAL Diagnosis Active 2012-03-14 Memoria PAIN 03-14 16:56:00 l 14:00: Vin ABDOMINAL 00 PAIN Active 03/14/2012 [place] NAUSEA, Diagnosis Active 2012-03-14 Me moria VOMITING 03-14 13:25:00 l NAUSEA, 08:00: Vin VOMITING 00 Active 03/14/2012 [place] N/V Diagnosis Active 2011-12-08 Mem oria INABILITY 11-27 11:14:00 l TO N/V 00:00: Vin TOLERATE INABILITY 00 PO TO TOLERATE PO Active 2 [facility] VOMITTING Diagnosis Active 2011-11-28 Memoria 11-27 16:28:00 l 00:00: Vin VOMITTING 00 Active 11/28/2011 [facility] VOMITTING, Diagnosis Active 2011-09-18 Memoria HIGH BLOOD 09-17 09:45:00 l SUGAR 00:00: Vin VOMITTING, 00 HIGH BLOOD SUGAR Active 09/18/2011 [facility] MRSA Problem Active 2012-03-16 Memor ia 08-31 09:11:30 l MRSA 00:00: Vin 00 Active 09/01/2011 Problem 03/16/2012 - Elbow [id number] emily added by Discern Expert. [facility] Methicilli Problem Active 2016-08-02 M emoria n - 02:46:22 l resistant 00:00: [place] Staphyloco Methicilli 00 ccus n aureus resistant (organism) Staphyloco ccus aureus (organism) Active 09/01/2011 Problem 08/02/2016 09/01/11 - Elbow woundProbl em added by Discern Expert. [facility] VOMITING, Diagnosis Active 2011-09-01 Memoria BLOOD 08-30 03:19:00 l SUGAR 00:00: Vin READINGS VOMITING, 00 HIGH BLOOD SUGAR READINGS HIGH Active 08/31/2011 [facility] ELBOW Diagnosis Active 2011-09-10 Mem oria ABSCESS/HY 08-30 16:26:00 l PERGLYCEMI ELBOW 00:00: Nidia nn A ABSCESS/HY 00 PERGLYCEMI A Active 08/31/2011 [facility] Hypokalemi Problem Active 2012-03-16 M emoria a - 09:11:30 l 00:00: [place] Hypokalemi 00 a Active 08/23/2011 Problem 03/16/2012 [facility] DKA Diagnosis Active 2011-08-24 Mem oria 11:27:00 l DKA 00:00: Vin 00 Active 08/19/2011 [facility] VOMITING Diagnosis Active 2011-08-19 M emoria 16:21:00 l VOMITING 00:00: Jake n 00 Active 08/19/2011 [facility] Final: Problem 2016-08-02 Memor ia Acute 02:46:22 l respirator Final: Herm naeem y failure, Acute unspecifie respirator d whether y failure, with unspecifie hypoxia or d whether hypercapni with a hypoxia or hypercapni a 08/02/2016 [facility] Hypoglycem Problem Inactiv 2013-04-22 Memoria ia e 04:46:33 l (disorder) Jake n Hypoglycem ia (disorder) Inactive Problem 04/22/2013 [facility] Hypoglycem Problem Inactiv 2012-03-16 Memoria ia e 09:11:30 l Vin Hypoglycem ia Inactive Problem 03/16/2012 [facility] Diabetes Problem Resolve 2016-08-02 Me moria mellitus d 02:46:22 l (disorder) Diabetes He rmann mellitus (disorder) Resolved Problem 08/02/2016 [facility] Gastropare Problem Resolve 2016-08-02 Memoria sis d 02:46:22 l (disorder) Jake n Gastropare sis (disorder) Resolved Problem 08/02/2016 [facility] Hypertensi Problem Resolve 2016-08-02 Memoria ve d 02:46:22 l disorder, Vin systemic Hypertensi arterial ve (disorder) disorder, systemic arterial (disorder) Resolved Problem 08/02/2016 [facility] Psychiatri Problem Resolve 2016-08-02 Memoria c d 02:46:22 l behavioral Jake n disability Psychiatri (finding) c behavioral disability (finding) Resolved Problem 08/02/2016 [facility] Seizure Problem Resolve 2016-08-02 Mem oria (finding) d 02:46:22 l Seizure Vin (finding) Resolved Problem 08/02/2016 [facility] Hypomagnes Problem Active 2013-04-22 M emoria emia 04:46:33 l [place] Hypomagnes emia Active Problem 04/22/2013 [facility] Hypertensi Problem Active 2012-03-16 M emoria on 09:11:30 l Vin Hypertensi on Active Problem 2 [facility] Nausea and Problem Active 2012-03-16 M emoria vomiting 09:11:30 l Nausea Vin and vomiting Active Problem 03/16/2012 [facility] DMI Diagnosis Active 2011-08-24 Mem oria KETOACD 11:27:00 l UNCONTROLD DMI Jake n KETOACD UNCONTROLD Active [facility] OTHER Diagnosis Active 2011-09-10 Mem oria GENERAL 16:26:00 l SYMPTOMS OTHER [place] GENERAL SYMPTOMS Active [facility] HEART Diagnosis Active 2016-06-24 Mem oria FAILURE, 15:35:00 l UNSPECIFIE HEART Nidia nn D FAILURE, UNSPECIFIE D Active [facility] ACUTE Diagnosis Active 2016-09-09 Mem oria RESPIRATOR 09:11:00 l Y FAILURE, ACUTE Nidia nn UNSP W RESPIRATOR HYPOXI Y FAILURE, UNSP W HYPOXI Active [facility] Nausea and Problem Resolve 2016-08-02 2016-08-02 Memoria vomiting d 6-10 02:46:22 02:46:22 l (disorder) Nausea 00:00: Herm naeem and 00 vomiting (disorder) Resolved 11/29/2011 Problem 08/02/2016 [facility] Hypokalemi Problem Resolve 2016-08-02 2016-08-02 Memoria a d 3-04 02:46:22 02:46:22 l (disorder) 00:00: Jake n Hypokalemi 00 a (disorder) Resolved 08/23/2011 Problem 08/02/2016 [facility] Disorder Problem Resolve 2016-08-02 2016-08-02 Memoria of d 3-04 02:46:22 02:46:22 l magnesium Disorder 00:00: Her braden metabolism of 00 (disorder) magnesium metabolism (disorder) Resolved 08/23/2011 Problem 08/02/2016 [facility] Hyperglyce Problem Resolve 2016-08-02 2016-08-02 Memoria maryam d 3-01 02:46:22 02:46:22 l (disorder) 00:00: Jake n Hyperglyce 00 maryam (disorder) Resolved 08/20/2011 Problem 08/02/2016 [facility] Ketoacidos Problem Resolve 2016-08-02 2016-08-02 Memoria is in d 2- 02:46:22 02:46:22 l diabetes 00:00: [place] mellitus Ketoacidos 00 (disorder) is in diabetes mellitus (disorder) Resolved 08/19/2011 Problem 08/02/2016 [facility] DKA Problem Resolve 2013-04-22 2013-04-22 Memoria (diabetic d 2- 04:46:33 04:46:33 l ketoacidos DKA 00:00: Jake n es) (diabetic 00 ketoacidos es) Resolved 08/19/2011 Problem 04/22/2013 [facility] History of Past Illness Condition Condition Condition Status Onset Resolution Last Treating Co mments Source Name Details Category Date Date Treatment Clinician Date Discharge Problem 2014-2014-06-28 2014-06-28 Memoria Diagnosis: 06-26 16:34:37 16:34:37 l Gastropare 06:00: Jake n sis Discharge 00 Diagnosis: Gastropare sis 06/26/2014 06/28/2014 [facility] Hyperglyce Problem Inactiv 2012-03-16 2012-03-16 Memoria maryam e - 09:11:30 09:11:30 l 00:00: [place] Hyperglyce 00 maryam Inactive 08/20/2011 Problem 03/16/2012 [facility] Allergies, Adverse Reactions, Alerts Allergy Allergy Status Severity Reaction(s) Onset Inactive Treating Comm ents Source Name Type Date Date Clinician Zolpidem Drug Active Other (See confusion [facility] Allergy Comments) 01-03 [facility]: [facility] 00 [place] Lisinopr Drug Active Other (See Unable to [facility] il Allergy Comments) 01-03 remember [facility] - 00:00: Medical 00 [place] Nitrofur Drug Active Anaphylaxis Liver [facility] [...] l Vin Ambien Ambien Active Memoria l [place] lisinopr lisinopr Active Memori a il il l Vin Social History Social Habit Start Date Stop Date Quantity Comments Source Sex Assigned At [facility] Cigarettes smoked 2017-12-17 2017-12-17 [facility] - current (pack per 00:00:00 00:00:00 Medical Center day) - Reported Cigarette 2017-12-17 2017-12-17 [facility] Мария - pack-years 00:00:00 00:00:00 [facility] Alcohol intake 2017-12-17 2017-12-17 [facility] non-drinker of Medical Ce nter alcohol (finding) Tobacco Comment 2017-01-03 2017-01-03 [facility]:00:00 she stopped [address] month ago. History of tobacco 2016-12-[address] [facility] use [facility] Center Social History 2016-06-11 2016-06-11 [facility] 04:38:12 04:38:12 Smoking Status Start Date Stop Date Source Former smoker 2017-12-17 00:00:00 2017-12-17 00:00:[address] [facility] Medications Ordered Filled Start Stop Current Ordering Indication Dosage Frequency Signature Comments Components Source Medication Medication Date Date Medication? Clinician (SIG) Name Name divalproex 2017- Yes depression 500mg QD Take [address] [facility] [facility] (DEPAKOTE) 7-20 associated mg by Pati kes - 500 MG EC 15:20: with mouth Medical tablet 59 bipolar daily. Center disorder ondansetron 2016- Yes 4mg Take 4 mg [...] l 59 Center hydrALAZINE 2017-0 Yes 100mg [id number] Take [address] (APRESOLINE 7-20 [id number] mg by L u[facility] - ) 100 MG 15:20: 3D mouth 3 Medica l tablet 59 (three) Center times daily. magnesium 2017- Yes 400mg QD Take [address] oxide 7-20 mg by [facility] - (MAG-OX) 15:20: mouth Medical 400 mg 59 daily. Center tablet metoclopram 2017- Yes 10mg [id number] Take [address] gadiel HCl 7-20 [id number] by mouth 3 [facility] - (REGLAN) 10 [...] tab, PO, l Tablet 15:07: Daily, # [place] 00 30 tab, 0 Refill(s), Pharmacy: [id number] Bumex No 0.5 mg, Memoria 07-30 Route: PO, l 15:00: Drug form: [place] 00 TAB, Daily, Dosing Weight 92.273, kg, Start date: 07/30/16 9:00:00 MOLECULAR BIOLOGIST, Duration: 30 day, Stop date: 08/28/16 9:00:00 MOLECULAR BIOLOGIST Lasix No Notes: Memoria 2-08 (Same as: l 20:05: Lasix) Vin 00 May cause GI upset. Give with food or milk. Hydralazine No Notes: Mendoza janice 2-08 (Same as: l 06:05: Apresoline ) Push over 5 minutes sodium No 1,000 mL, Memori a chloride 205 Rate: 125 l 0.9% 1000 18:26: ml/hr, Jake n ml INJ 00 Infuse 1,000 mL over: 8 hr, Route: IV, Dosing Weight 92.273 kg, Total Volume: 1,000, Start date: 07/26/16 12:26:00 MOLECULAR BIOLOGIST, Duration: 30 day, Stop date: 08/25/16 12:25:00 MOLECULAR BIOLOGIST Sodium 2017-0 No 500 mL, Memoria Chloride 2-05 500 ml/hr, l 0.154 13:30: Infuse Vin MEQ/ML 00 Over: 1 Injectable hr, Route: Solution IV, 500, Drug form: INJ, ONCE, Priority: STAT, Dosing Weight 92.273 kg, Start date: 07/26/16 7:30:00 MOLECULAR BIOLOGIST, Duration: 1 doses or times, Stop date: 07/26/16 7:30:00 MOLECULAR BIOLOGIST Insulin No 60 Memoria regular 2-04 units) l 08:39: WASTE: F/P Vin 00 - Black; E - Municipal Trash Bin Stable for 28 days at room temperatur e Expires in days from ____Date Insulin, No Notes: Memoria Aspart, 2-04 Roll in l Human 07:31: palms of [place] 00 hands gently; Do not shake vigorously . (Same as: NovoLOG) "single patient use only" WASTE: F/P - Black; E - Municipal Trash Bin Stable for 28 days at room temperatur e. Expires in days from ____Date Insulin, No Notes: Memoria Aspart, 2-04 Roll in l Human 05:42: palms of [place] 00 hands gently; Do not shake vigorously [...] Weight 92.273, kg, Start date: 07/24/16 9:00:00 MOLECULAR BIOLOGIST, Duration: 30 day, Stop date: 08/22/16 9:00:00 MOLECULAR BIOLOGIST 24 HR No Notes: Memoria Divalproex 2-03 [...] Memoria 2-03 (Same as: l 15:00: Zoloft) [place] 00 Protonix No Notes: Memoria 2-03 Tablet l 15:00: should not [place] 00 be chewed or crushed. (Same as: Protonix) metoprolol No 100 mg, 2 Me moria extended 2-03 tab, l release 15:00: Route: PO, Herm naeem 00 Drug form: ERTAB, Daily, Start date: 07/24/16 9:00:00 MOLECULAR BIOLOGIST, Duration: 30 day, Stop date: 08/22/16 9:00:00 MOLECULAR BIOLOGIST Insulin No Notes: Memoria Glargine 2-03 Same [...] 2-03 (Same as: l 14:50: Zofran) Vin MEDICATION WASTE Product Size: 4 mg Product Wasted: ___ mg Morphine No Notes: Memoria 2-03 (Same l 14:50: as:MORPhin Vin 00 e Sulfate) Insulin, No Notes: Memoria Aspart, 2-03 Roll in l Human 13:30: palms of [place] 00 hands gently; Do not shake vigorously . (Same as: NovoLOG) "single patient use only" WASTE: F/P - Black; E - Municipal Trash Bin Stable for 28 days at room temperatur e. Expires in days from ____Date Dilaudid No Notes: Memoria 2-03 Same as l 11:28: Dilaudid Vin Insulin, No Notes: Memoria Aspart, 2-03 Roll in l Human 08:40: palms of [place] 00 hands gently; Do not shake vigorously . (Same as: NovoLOG) "single patient use only" WASTE: F/P - Black; E - Municipal Trash Bin Stable for 28 days at room temperatur e. Expires in days from ____Date Glucagon No 1 mg, Memoria 2-03 Route: IM, l 08:40: Drug form: [place] 00 PDR/INJ, PRN, Dosing Weight 92.273, kg, PRN Blood Glucose Results, Start date: 07/24/16 2:40:00 MOLECULAR BIOLOGIST, Duration: 30 day, Stop date: 08/23/16 2:39:00 MOLECULAR BIOLOGIST Dextrose No 25 gm, 50 Mendoza janice 50% Syringe 2-03 mL, Route: l 08:40: IVP, Drug Form: INJ, Dosing Weight 92.273, kg, PRN, PRN Blood Glucose Results, Start date: 07/24/16 2:40:00 MOLECULAR BIOLOGIST, Duration: 30 day, Stop date: 08/23/16 2:39:00 MOLECULAR BIOLOGIST Docusate No Notes: Memoria 2-03 (Same as: [...] as: l / 04:09: Duoneb) Ipratropium 00 [place] 0.167 MG/ML Inhalant Solution [DuoNeb] Furosemide 2015-06 Yes 80 mg = 2 Me moria 40 MG Oral 2-26 tab, PO, l Tablet 16:34: BID, # 120 Nidia nn 00 tab, 0 Refill(s) atorvastati 2015-06 Yes 40 mg = 1 M emoria n 40 mg 2-26 tab, PO, l oral tablet 16:34: Bedtime, # [place] 00 30 tab, 0 Refill(s) Insulin 2015-06 [...] tab, PO, l tablet 16:34: Daily, # [place] 00 30 tab, 0 Refill(s) Lasix 2015-06 No Notes: Memoria 2-26 (Same as: l 15:00: Lasix) Vin 00 May cause GI upset. Give with food or milk. Magnesium 2015-06 No Notes: Memori a Oxide 2-24 (Same as: l 13:36: Mag-Ox Vin 00 400) Magnesium oxide 304pl=703k g elemental magnesium Dose=____m g magnesium oxide (___mg elemental magnesium) Magnesium 2015-06 No Notes: Memori a Oxide 2-24 (Same as: l 09:47: Mag-Ox Vin 00 400) Magnesium oxide 875sl=568e g elemental magnesium Dose=____m g magnesium oxide [...] Memoria 2-24 (Same as: l 00:00: Norvasc) [place] 00 Insulin 2015-06 No Notes: Memoria Glargine [...] tab, PO, l tablet 15:35: Daily, 0 [place] 00 Refill(s) pravastatin 2015-06 No 40 mg = 1 M emoria 40 mg oral 2-23 tab, PO, l tablet 15:35: Daily, 0 [place] 00 Refill(s) Sertraline 2015-06 Yes 200 mg [...] n 2-23 (Same as: l 03:00: Lipitor) Vin 00 Lactulose 2015-06 No Notes: Memori a 2-22 [...] Weight 86.364, kg, Start date: 06/11/16 9:00:00 MOLECULAR BIOLOGIST, Duration: 30 day, Stop date: 07/10/16 9:00:00 MOLECULAR BIOLOGIST Insulin 2015-06 No Notes: Memoria Glargine 2-22 Same as: l 100 UNT/ML 15:00: Lantus) Do H not hold Solution insulin [Lantus] without contacting [...] as: l / 03:00: Duoneb) Ipratropium 00 [place] 0.167 MG/ML Inhalant Solution [DuoNeb] gabapentin 2015-06 No 300 mg, Mendoza janice 300 MG Oral 2-22 Route: PO, l Capsule 03:00: Drug form: Herm naeem 00 CAP, Q12H, Dosing Weight 86.364, kg, (CrCl 30 - 59 ml/min), Start date: 06/10/16 21:00:00 MOLECULAR BIOLOGIST, Duration: 30 day, Stop date: 07/10/16 9:00:00 MOLECULAR BIOLOGIST divalproex 2015-06 No Notes: Memor ia sodium [...] Blood Glucose Results, Start date: 06/10/16 18:50:00 MOLECULAR BIOLOGIST, Duration: 30 day, Stop date: 07/10/16 18:49:00 MOLECULAR BIOLOGIST Glucagon 2015-06 No 1 mg, Memoria 2-22 Route: IM, l 00:50: Drug form: [place] PDR/INJ, PRN, Dosing Weight 86.364, kg, PRN Blood Glucose Results, Start date: 06/10/16 18:50:00 MOLECULAR BIOLOGIST, Duration: 30 day, Stop date: 07/10/16 18:49:00 MOLECULAR BIOLOGIST Hydralazine 2015-06 No Notes: Mendoza janice 2-22 (Same as: l 00:36: Apresoline ) Push over 5 minutes Hydralazine 2015-06 No Notes: Mendoza janice 2-22 (Same as: l 00:34: Apresoline ) May interfere w/enteral feedings Take With Food metoprolol 2015-06 No Notes: Memor ia extended - (Same as: l release 00:08: Toprol XL) May split tab, but do not crush. Hydralazine 2015-06 No 10 mg, Mendoza janice -22 Route: IV, l 00:06: ONCE, Dosing Weight 86.364, kg, Start date: 06/10/16 18:06:00 MOLECULAR BIOLOGIST, Stop date: 06/10/16 18:06:00 MOLECULAR BIOLOGIST hydrOXYzine 2015-06 No Notes: Mendoza janice pamoate - (Same as: l 23:00: Vistaril) Furosemide 2015-06 No 60 mg, Memor ia - Route: l 22:32: IVP, Drug form: INJ, ONCE, Dosing Weight 86.364, kg, Start date: 06/10/16 16:32:00 MOLECULAR BIOLOGIST, Stop date: 06/10/16 16:32:00 MOLECULAR BIOLOGIST Lasix 2015-06 No Notes: Memoria -21 (Same as: l 17:22: Lasix) MEDICATION WASTE Product Size: 40 mg Product Wasted: _0__ mg Albuterol 2015-06 No Notes: Memori a 0.833 MG/ML - (Same as: l 17:22: Duoneb) Ipratropium 00 [place] 0.167 MG/ML Inhalant Solution [DuoNeb] Promethazin Yes 25 mg = 1 M emoria e 1-06 supp, [place], l Hydrochlori 14:45: Q6H, Jake n de 25 MG 00 Nausea & Rectal Vomiting, Suppository # 9 supp, [Phenergan] 0 Refill(s) Ondansetron Yes Special Mem oria 4 MG 06-26 Instructio l Disintegrat 14:25: ns: Jake n ing Tablet 00 Dissolve [Zofran] tab under [...] Tablet Hydromorpho No Notes: Mendoza janice ne 06-26 Same as: l 11:48: Dilaudid hydrOXYzine Yes [...] Chloride 1-06 1,000 l 0.154 10:56: ml/hr, Vni MEQ/ML 00 Infuse Injectable Over: 2 Solution [...] 04/14/13 23:10:00, Stop date: 04/14/13 23:10:00 Sodium 2012- No Matthew Gary 1,000 mL, M emoria Chloride 0-26 Marry Rate: 125 l 0.9% IV 04:10: ml/hr, [place] 1,000 mL 00 Infuse over: 8 hr, [...] Marx Rate: 500 l 0.9% 23:45: ml/hr, Vin (Bolus) IV 00 Infuse 500 mL over: [...] Hung Murillo 500 mL, Me moria Chloride 03-14 Marx Rate: l 0.9% 22:19: 1,000 [place] (Bolus) IV 00 ml/hr, 500 mL Infuse over: 0.5 hr, Route: IV, kg, Total Volume: 500, Bolus dose, Priority: STAT, Start date: 03/14/12 17:19:00, Duration: 1 doses or times, Stop date: 03/14/12 17:48:00 Reglan 10 2011- Yes Blake 10 mg, 1 M emoria mg oral 6-11 Deangelo tab, PO, l tablet 11:11: Brisa QID-Before H erm 13 Meals, 120 tab, 1, 1, Substituti on Allowed insulin No Blake 10 unit, Mem oria isophane-LABEL DRIER 6-11 Deangelo 0.1 mL, l H 02:00: Route: SUB-Q, Drug form: INJ, Bedtime, Start date: 11/29/11 21:00:00, Duration: 30 day, Stop date: 12/28/11 21:00:00 Insulin No Blake 8 unit, Mendoza janice regular 6-11 Deangelo 0.08 mL, l 02:00: Route: SUB-Q, Drug form: SOLN, Bedtime, Start date: 11/29/11 21:00:00, Duration: 30 day, Stop date: 12/28/11 21:00:00 trazodone 2011- No Blake 200 mg, 2 Memoria 100 mg oral 6-11 Deangelo tab, l tablet 02:00: Route: PO, H erm Drug form: TAB, Bedtime, Start date: 11/29/11 [...] tab, l 01:11: Route: PO, Her braden Drug form: TAB, [...] 2011-0 No Blake 14 unit, Mem oria isophane-LABEL DRIER 6-10 Deangelo 0.14 mL, l H 14:00: Route: [place] 00 SUB-Q, Drug form: INJ, Daily, Start [...] mL, Route: l 04:01: Brown IVP, Drug [place] 00 form: INJ, ONCE, Priority: STAT, Start date: 11/28/11 23:01:00, Stop date: 11/28/11 23:01:00 Zofran 2011- No Nikki 4 mg, 2 Mendoza janice [...] 1,000 mL 11-27 Rate: l 20:36: 1,000 [place] 00 ml/hr, Infuse over: 1 hr, Route: IV, Dosing Weight 57.273 kg, Total Volume: 1,000, Start date: 11/28/11 15:36:00, Duration: 30 day, Stop date: 12/28/11 15:35:00 Ativan No Arif Domenico 2 mg, 1 Mem oria 6-09 mL, Route: l 20:35: IVP, Drug [place] 00 form: INJ, ONCE, Priority: STAT, Start date: 11/28/11 15:35:00, Stop date: 11/28/11 15:35:00 Novolin R Yes Hughes-Jason 8 unit, M emoria 100 3-30 [place] SUB-Q, l units/mL 17:47: Dawson Q12H, 2 He rmann injectable 42 Pu vial, solution Substituti on Allowed, SOLN Novolin N 2011-0 Yes Hughes-Jason 10 unit, Memoria 100 3-30 [place] SUB-Q, l units/mL 17:46: Eunice Bedtime, H ermann subcutaneou 27 Pu 10 ml, s injection Substituti on Allowed, SUSP Novolin N 2011-0 Yes Hughes-Jason 14 unit, Memoria 100 3-30 [place] SUB-Q, l units/mL 17:44: Eunice QAM, 1 Her braden subcutaneou 37 Pu vial, s injection Substituti on Allowed, SUSP magnesium 2011-0 No Hughes-Jason 400 mg, 1 Memoria oxide 3-30 [place] tab, l 14:55: [place] Route: PO, Her braden 00 Pu Drug form: TAB, ONCE, Priority: STAT, Start date: 09/18/11 9:55:00, Stop date: 09/18/11 9:55:00 Insulin 2011-0 No Hughes-Jason 8 unit, Mem oria regular 3-30 [place] 0.08 mL, l 14:22: [place] Route: [place] 00 Pu SUB-Q, Drug form: SOLN, ONCE, Priority: STAT, Start date: 09/18/11 9:22:00, Stop date: 09/18/11 9:22:00 Lactated 2011-0 No Hughes-Jason 1,000 mL, Memoria Ringers 3-30 [place] Rate: l (Bolus) IV 14:16: Eunice 1,000 He rmann 1,000 mL 00 Pu ml/hr, Infuse over: 1 hr, Route: IV, Total Volume: 1,000, Bolus Dose, Priority: STAT, Start date: 09/18/11 9:16:00, Duration: 1 doses or times, Stop date: 09/18/11 10:15:00 Sodium 2011-0 No Hughes-Jason 1,000 mL, Me moria Chloride 3-30 [place] Rate: l 0.9% 14:06: Eunice 1,000 Vin (Bolus) IV 00 Pu ml/hr, 1000 mL Infuse over: 1 hr, Route: IV, kg, Total Volume: 1,000, Bolus Dose, Priority: STAT, Start date: 09/18/11 9:06:00, Duration: 1 doses or times, Stop date: 09/18/11 10:05:00 sulfamethox 2011- Yes Substituti Memoria azole 3-30 on Allowed l 14:04: [place] 58 Sodium No Hughes-Jason 1,000 mL, Me moria Chloride 3-30 [place] Rate: l 0.9% 13:56: Dawson 1,000 [place] ([place]) IV 00 Pu ml/hr, 1000 mL [...] braden 55 cap, Substituti on Allowed, CAP [place] Yes Luna 1 tab, PO, Memoria 10/325 oral 3-21 Amelia Q4H, PRN, l tablet 18:46: Zeeshan 30 tab, Herm naeem 36 Pain, Substituti on Allowed, Maintenanc e, TAB [place] No Hollie Donavan 1 tab, Mendoza janice [...] Omidvar tab, l 15:30: Route: PO, Vin Drug form: TAB, Daily, Start date: 09/07/11 10:30:00, Duration: 30 day, Stop date: 10/07/11 9:00:00 flumazenil 2011-0 No Gayle 0.2 mg, 2 Memoria 3-19 [...] Memoria 3-19 Josefina mL, Route: l 14:19: Curlew IVP, Drug Jake n 00 form: INJ, ONCE, PRN Nausea & Vomiting, Start date: 09/07/11 9:19:00 hydromorpho No Gayle 0.5 mg, Memoria ne 3-19 Josefina 0.25 mL, l 14:19: Gavin Route: Vin IVP, Drug form: INJ, Q5Min, PRN Pain Score 4-6, Start date: 09/07/11 9:19:00, Duration: 5 doses or times, Stop date: Limited # of times acetaminoph 0 No Gayle 15 mL, M emoria en-hydrocod 3-19 Josefina Route: PO, l one 325 14:19: Gavin Drug Form: Tyrel rmann mg-10 mg/15 00 SOLN, Q4H, mL [...] clindamycin No Maximo R 600 mg, Memoria 09-06 Arias Route: l 13:31: IVPB, Vin 00 [...] 8.6 mg, 1 M emoria mg oral 09-04 Omidvar tab, l tablet 15:00: Route: PO, Nidia nn Drug Form: TAB, BID, PRN as needed for constipati on, Start date: 09/05/11 10:00:00, Duration: 30 day, Stop date: 10/05/11 9:00:00 Colace 100 2012-0 No Bismark 100 mg, 1 Memoria mg oral 3-17 Omidvar cap, l capsule 15:00: Route: PO, Herm naeem 00 Drug form: CAP, BID, PRN as needed for constipati on, Start date: 09/05/11 10:00:00, Duration: 30 day, Stop date: 10/05/11 9:00:00 potassium 2011-0 No Bismakr 40 mEq, 2 M emoria chloride 3-17 Omidvar tab, l 14:11: Route: PO, [place] 00 Drug form: ERTAB, ONCE, Start date: 09/05/11 9:11:00, Stop date: 09/05/11 9:11:00 Dulcolax 2011-0 No Charbel A 10 mg, 2 M emoria Laxative 3-17 Wong tab, l 04:00: Route: PO, [place] 00 Drug form: ECTAB, Daily, PRN Constipati [...] Duration: 30 day, Stop date: 10/04/11 18:10:00 [place] 2011-0 No Mahammad 1 tab, Memori a 10/325 oral 3-16 Simeon Route: PO, l tablet 17:00: Dez Drug Form: He rmann 00 TAB, Q4H, Start date: 09/04/11 12:00:00, Duration: 30 day, Stop date: 10/04/11 8:00:00 Sodium 2011-0 No Rosalino 320 mL, Memor ia Chloride [...] Kavon mL, Route: l 14:50: IVP, Drug [place] 00 form: INJ, ONCE, PRN Nausea & [...] 3-16 Kavon 0.1 mL, l 14:50: Route: [place] 00 IVP, Drug form: INJ, Q2MIN, PRN Narcotic Reversal, Start date: 09/04/11 9:50:00, Duration: 30 day, Stop date: 10/04/11 9:49:00 [place] 2011-0 No Bismark 1 tab, Memoria 10/325 [...] Beck 0.1 mL, l 13:37: Hayden Route: [place] IVP, Drug form: INJ, Q2MIN, PRN Narcotic [...] l 13:37: Hayden IVP, Drug Nidia nn form: INJ, PRN, PRN Benzodiaze pine Reversal, Initial dose, Start date: 09/04/11 8:37:00, Duration: 1 day, Stop date: 09/05/11 8:36:00 hydromorpho No Rosalino 0.5 mg, Memoria ne 3-16 Kavon 0.25 mL, l 13:37: Route: IVP, Drug form: INJ, Q5Min, PRN Pain Score 4-6, Start date: 09/04/11 8:37:00, Duration: 5 doses or times, Stop date: Limited # of times clindamycin No Ebre L 600 mg, 4 Memoria 3-15 Anabelle mL, Route: l 16:00: IVPB, [place] [id number], Start date: 09/03/11 11:00:00, Duration: 30 day, Stop date: 10/03/11 8:00:00 potassium 2011-0 No Bismark 40 mEq, 2 M emoria chloride 3-15 Omidvar tab, l 13:39: Route: PO, Vin 00 Drug form: ERTAB, ONCE, Start date: 09/03/11 8:39:00, Stop date: 09/03/11 8:39:00 [place] 5/325 2011-0 No Rosalino 1 tab, M emoria oral tablet 3-15 Kavon Route: PO, l 05:00: Drug Form: [place] 00 TAB, Q4H, Start date: 09/03/11 0:00:00, Duration: 30 day, Stop date: 10/02/11 20:00:00 Geodon 2011-0 No Eber L 120 mg, 3 Memoria 3-15 Anabelle cap, l 02:00: Route: PO, [place] Drug form: CAP, Bedtime, Start date: 09/02/11 [...] 3-14 Anabelle cap, l 17:00: Route: PO, [place] 00 Drug form: ERCAP, Daily, Give qAM after today's dose., Start date: 09/02/11 12:00:00, Duration: 30 day, Stop date: 10/02/11 9:00:00 [place] 5/325 2011-0 No Rosalino 1 tab, M emoria oral tablet 3-14 Kavon Route: PO, l 16:25: Drug Form: [place] 00 TAB, Q4H, PRN Pain, Start date: 09/02/11 11:25:00, Duration: 30 day, Stop date: 10/02/11 11:24:00 magnesium 2011-0 No Bismark 4 gm, 50 Me moria sulfate 3-14 Omidvar mL, Route: l 16:15: IVPB, Drug form: INJ, ONCE, Start date: 09/02/11 11:15:00, Stop date: 09/02/11 11:15:00 Lovenox 2011-0 No Missael 40 mg, 0.4 Mem oria 3-14 Movva mL, Route: l 14:00: SUB-Q, Vin Drug form: INJ, Daily, Start date: 09/02/11 9:00:00, Duration: 30 day, Stop date: 10/01/11 9:00:00 vancomycin 2011-0 No Eber L 1 gm, Memoria 3-14 Anabelle Route: l 14:00: IVPB, Drug form: INJ, [id number], Start date: 09/02/11 9:00:00, Duration: 30 day, Stop date: 10/01/11 21:00:00 clindamycin 2011-0 No Eber L 600 mg, 4 Memoria (SCIP) 3-14 Anabelle mL, Route: l 10:00: IVPB, Vin 00 [id number], Start date: 09/02/11 5:00:00, Duration: 3 doses or times, Stop date: 09/02/11 21:00:00 clindamycin 2011-0 No Yury 600 mg, 4 Memoria (SCIP) 3-14 Silveiro mL, Route: l 04:00: Connally IVPB, Vin 00 [id number], Start date: 09/01/11 23:00:00, Duration: 3 doses or times, Stop date: 09/02/11 15:00:00 insulin 2011-0 No Bismark 15 unit, Mendoza janice isophane-LABEL DRIER 3-14 Omidvar 0.15 mL, l H 02:00: Route: Vin 00 SUB-Q, Drug form: INJ, Q12H, Start date: 09/01/11 21:00:00, Stop date: 10/01/11 9:00:00 labetalol 2011-0 No Mariaelena-Corea 5 mg, Me moria 3-14 Barbra Route: l 01:07: Feliciano IVP, Vin 00 Q5Min, PRN Elevated BP, Start date: 09/01/11 20:07:00, Duration: 5 doses or times, Stop date: Limited # of times hydrALAZINE 0 No Mariaelena-Corea 5 mg, Memoria 3-14 Barbra Route: l 01:07: Feliciano IVP, [place] 00 Q5Min, PRN Elevated BP, Start date: 09/01/11 20:07:00, Duration: 4 doses or times, Stop date: Limited # of times hydromorpho No Mariaelena-Corea 0.5 mg, Memoria ne 3-14 Barbra Route: l 01:07: Feliciano IVP, [place] 00 Q5Min, PRN Pain Score 4-6, Start date: 09/01/11 20:07:00, Duration: 5 doses or times, Stop date: Limited # of times naloxone No Mariaelena-Corea 0.04 mg, Memoria 3-14 Barbra Route: l 01:07: Feliciano IVP, [place] 00 Q2MIN, PRN Narcotic Reversal, Start date: 09/01/11 20:07:00, Duration: 8 doses or times, Stop date: Limited # of times flumazenil No Mariaelena-Corea 0.2 mg, Memoria 3-14 Barbra Route: l 01:07: Feliciano IVP, PRN, [place] 00 PRN Benzodiaze pine Reversal, Initial dose, Start date: 09/01/11 20:07:00, Duration: 30 day, Stop date: 10/01/11 20:06:00 ondansetron No Mariaelena-Corea 4 mg, Memoria 3-14 Barbra Route: l 01:07: Feliciano IVP, ONCE, PRN Nausea & Vomiting, Start date: 09/01/11 20:07:00 vancomycin No Mele 1 gm, Mem oria -14 Gauvain Route: l 01:00: IVPB, Drug form: INJ, [id number], Start date: 09/01/11 20:00:00, Duration: 30 day, [...] Route: l 00:00: IVPB, Drug form: INJ, [id number], Start date: 09/01/11 19:00:00, Duration: 30 day, Stop date: 10/01/11 7:00:00 insulin 2011-0 No Missael 6 unit, Memori a aspart 3-13 Movva 0.06 mL, l 23:23: Route: [place] 00 SUB-Q, Drug form: SOLN, TID-Before Meals, [...] mL, Me moria Ringers IV 3-13 [place] Rate: 100 l 1,000 mL 19:03: ml/hr, [...] l 13:20: Sandeep IVPB, Drug Herm naeem form: INJ, ONCE, Priority: STAT, Start date: 09/01/11 8:20:00, Stop date: 09/01/11 8:20:00 Sodium 2011-0 No Bee L 1,000 mL, M emoria Chloride - [place] Rate: l 0.9% 10:41: 1,000 [place] ([place]) IV 00 ml/hr, 1000 mL Infuse over: 1 hr, Route: IV, Dosing Weight 68.182 kg, Total Volume: 1,000, [place] Dose, Priority: STAT, Start date: 09/01/11 5:41:00, Duration: 1 doses or times, Stop date: 09/01/11 6:40:00 ondansetron 2011-0 No Bee L 4 mg, Memoria 08-31 [place] Route: l 09:06: IVP, Drug [place] 00 form: INJ, ONCE, Priority: STAT, Start date: 09/01/11 4:06:00, Stop date: 09/01/11 4:06:00 morphine 2011-0 No Bee L 4 mg, Mem oria Sulfate 08-31 [place] Route: l 09:06: IVP, ONCE, Vin 00 Priority: STAT, Start date: 09/01/11 4:06:00, Stop date: 09/01/11 4:06:00 Sodium 2011-0 No Bee L 1,000 mL, M emoria Chloride 08-31 [place] Rate: l 0.9% 08:42: 1,000 [place] ([place]) IV 00 ml/hr, 1000 mL Infuse over: 1 hr, Route: IV, Dosing Weight 68.182 kg, Total Volume: 1,000, [place] Dose, Priority: STAT, Start date: 09/01/11 3:42:00, Duration: 1 doses or times, Stop date: 09/01/11 4:41:00 Insulin 2011-0 No Bee L 8 unit, Me moria regular 08-31 [place] 0.08 mL, l 08:30: Route: [place] 00 IVP, Drug form: SOLN, ONCE, Priority: STAT, Start date: 09/01/11 3:30:00, Stop date: 09/01/11 3:30:00 Sodium 2011-0 No Bee L 1,000 mL, M brandona Chloride 3-13 [place] Rate: l 0.9% 07:29: 1,000 Vin (Bolus) [...] Akmal SUB-Q, l units/mL 14:42: BID, 3 [place] subcutaneou 04 vial, 3, s injection 3, Substituti on Allowed, SUSP insulin Yes Velásquez Noam 5 Units, Memoria regular 3-04 Akmal SUB-Q, l human 14:40: TID, 30 [place] recombinant 10 vial, 3, 100 3, units/mL Substituti injectable on solution Allowed, before breakfast lunch and dinner, SOLNbefore breakfast lunch and dinner potassium No Velásquez Noam 20 mEq, Memoria chloride 3-04 Akmal 100 mL, l 14:00: Route: [place] IVPB, Drug form: INJ, Q2H, Start date: [...] Akmal Route: IV, l 12:29: ONCE, Vin Start date: 08/23/11 6:29:00, Stop date: 08/23/11 [...] Rodriguez 10 mL, l 16:25: Ahmed Route: [place] 00 IVPB, ONCE, Start date: 08/22/11 10:25:00, [...] Gato 100 mL, l 15:12: Rivero Route: Nidai nn 00 IVPB, Drug form: INJ, ONCE, [...] 30 day, Stop date: 09/19/11 11:14:00 insulin 2012-0 No Yury 10 unit, Mem oria isophane-LABEL DRIER 3-01 Gato Route: l H 16:00: Rivero SUB-Q, Nidia nn 00 ONCE, Start date: 08/20/11 10:00:00, Stop date: 08/20/11 10:00:00 trazodone 2011- Yes 200 mg, 2 Mem oria 100 mg oral - tab, PO, l tablet 15:37: Bedtime, Vin 27 90 tab, Substituti on Allowed, TAB benztropine Yes 1 mg, 1 Mem oria 1 mg oral 08-19 tab, PO, l tablet 15:35: BID, 60 Vin 25 tab, Substituti on Allowed, TAB Geodon 60 Yes 120 mg, 2 Mem oria mg oral 08-19 cap, PO, l capsule 15:35: Bedtime, Jake n 12 60 cap, Substituti on Allowed, CAP insulin No Yury 10 unit, Mem oria isophane-LABEL DRIER 3- [place] Route: l H 15:00: Rivero [...] Route: PO, H ermann 00 Drug form: ERCAP, Daily, Start date: 08/20/11 9:00:00, Duration: 30 day, Stop date: 09/18/11 9:00:00 potassium 2011-0 No Yury 15 mmol, 5 Memoria phosphate 3- [place] mL, Route: l 14:30: Rivero IV, ONCE, He rmann Start date: 08/20/11 8:30:00, Stop date: 08/20/11 [...] Allowed insulin No 10 unit, Memori a isophane-LABEL DRIER 08-19 SUB-Q, l H 09:26: BID, Vin 18 [...] 2011-0 No Yury 18 unit, Mem oria isophane-LABEL DRIER 3- [place] 0.18 mL, l H 08:58: Rivero Route: Nidia nn 00 SUB-Q, Drug form: INJ, Q12H, Start date: 08/20/11 2:58:00, Stop date: 09/18/11 21:00:00 insulin 2011- No Yury 2 unit, Mendoza janice aspart - [place] 0.02 mL, l 08:48: Rivero Route: [...] 30 day, Stop date: 09/19/11 3:47:00 Insulin 2011- No Yury 3 unit, Mendoza janice regular 3- [place] Route: l 08:48: Rivero SUB-Q, Nidia nn 00 Bedtime, PRN Blood Glucose Results, Start date: 08/20/11 2:48:00, Duration: 30 day, Stop date: 09/19/11 2:47:00 Dextrose 2011-0 No Yury 25 gm, 50 M emoria 50% Syringe 3-01 G[place] ml, Route: l 08:46: Rivero IVP, Drug He rm Form: INJ, PRN, PRN Blood Glucose Results, Start date: 08/20/11 2:46:00, Duration: 30 day, Stop date: 09/19/11 3:45:00 ondansetron 2011-0 No Hughes-Jason 4 mg, M emoria 08-19 [place] Route: l 07:42: Dawson IVP, Drug Herm naeem 00 Pu form: INJ, ONCE, Priority: STAT, Start date: 08/20/11 1:42:00, Stop date: 08/20/11 1:42:00 GI cocktail 2011- No Hughes-Jason 30 ml, Memoria 08-19 [place] Route: PO, l 05:12: Drug Form: Her braden 00 Pu SUSP, ONCE, STAT, Start date: 08/19/11 23:12:00, Stop date: 08/19/11 23:12:00 ondansetron 2011- No Hughes-Jason 4 mg, M emoria 08-19 [place] Route: PO, l 05:10: Dawson Drug form: Her braden 00 Pu TABDIS, ONCE, Priority: STAT, Start date: 08/19/11 23:10:00, Stop date: 08/19/11 23:10:00 Lactated 2011-0 No Hughes-Jason 1,000 mL, Memoria Ringers 08-19 [place] Rate: l (Bolus) IV 05:10: [place] 1,000 He rmann 1000 mL 00 Pu ml/hr, Infuse over: 1 hr, Route: IV, Total Volume: 1,000, [place] Dose, Priority: STAT, Start date: 08/19/11 23:10:00, Duration: 1 doses or times, Stop date: 08/20/11 0:09:00 Insulin 2011-0 No Hughes-Jason 7 unit, Mem oria regular 08-19 [place] 0.07 mL, l 04:15: Dawson Route: [place] 00 Pu SUB-Q, Drug form: SOLN, ONCE, Priority: STAT, Start date: 08/19/11 22:15:00, Stop date: 08/19/11 22:15:00 Geodon 60 2011-0 No Yury 60 mg, 1 M emoria mg oral 2-29 [place] cap, PO, l capsule 23:24: Rivero BID, 180 Vin 43 cap, Substituti on Allowed, CAP trazodone No 300 mg, 1 Mem oria 300 mg oral tab, PO, l tablet 23:23: Bedtime, Vin [...] Protonix No William 40 mg, Memor ia - Wong Route: l 22:04: Pooja IVP, Drug Jake n 00 form: INJ, ONCE, Start date: 08/19/11 16:04:00, Stop date: 08/19/11 16:04:00 ondansetron No William 8 mg, Mem oria Wong Route: l 21:57: Pooja IVP, Drug Jake n 00 form: INJ, ONCE, Priority: STAT, Start date: 08/19/11 15:57:00, Stop date: 08/19/11 15:57:00 morphine 2011-0 No William 4 mg, Memori a Sulfate [...] Diastolic (mm Hg) 2016-07-30 14:00:00 Mem orial [place] Respitory Rate 2016-07-30 14:00:00 Memori al [place] Heart Rate 2016-07-30 14:00:00 Memorial Vin Temperature Oral (F) 2016-07-30 14:00:00 97.4 F [facility] [place] Systolic (mm Hg) 2016-07-30 10:45:00 Mendoza rial Vin Diastolic (mm Hg) 2016-07-30 10:45:00 Mem orial [place] Heart Rate 2016-07-30 10:45:00 [facility] [place] Temperature Oral (F) 2016-07-30 10:45:00 97.2 F Memorial Vin Respitory Rate 2016-07-30 10:45:00 Memori al Vin Heart Rate 2016-07-30 06:35:00 Memorial Vin Temperature Oral (F) 2016-07-30 06:35:00 97.0 F [facility] [place] Respitory Rate 2016-07-30 06:35:00 Memori al Vin Systolic (mm Hg) 2016-07-30 06:35:00 Mendoza rial Vin Diastolic (mm Hg) 2016-07-30 06:35:00 Mem orial Vin Weight 2016-07-24 02:13:00 [facility] [place] BMI Calculated 2016-07-24 02:13:00 Memori al Vin Height 2016-07-24 02:13:00 160.02 cm Memorial Vin Respitory Rate 2016-06-15 15:00:00 Memori al [place] Systolic (mm Hg) 2016-06-15 15:00:00 Mendoza rial Vin Diastolic (mm Hg) 2016-06-15 15:00:00 Mem orial Vin Respitory Rate 2016-06-15 14:00:00 Memori al Vin Systolic (mm Hg) 2016-06-15 14:00:00 Mendoza rial [place] Diastolic (mm Hg) 2016-06-15 14:00:00 Mem orial [place] Respitory Rate 2016-06-15 13:29:00 Memori al Vin Systolic (mm Hg) 2016-06-15 13:29:00 Mendoza rial Vin Diastolic (mm Hg) 2016-06-15 13:29:00 Mem orial [place] Temperature Oral (F) 2016-06-14 10:56:00 97.1 F Memorial Vin Temperature Oral (F) 2016-06-14 06:55:00 97.1 F [facility] [place] Temperature Oral (F) 2016-06-12 10:00:00 96.8 F [facility] [place] Weight 2016-06-11 04:25:00 Memorial Vin Height 2016-06-11 04:25:00 160.02 cm Memorial Vin BMI Calculated 2016-06-11 04:25:00 Memori al Vin Heart Rate 2016-06-11 02:04:00 [facility] Vin Heart Rate 2016-06-11 00:00:00 Memorial Vin Heart Rate 2016-06-10 20:30:00 [facility] [place] Weight 2016-06-10 16:04:00 Memorial Vin BMI Calculated 2016-06-10 16:04:00 [facility]ori al [place] Height 2016-06-10 16:04:00 160.02 cm [facility] Vin Temperature Oral (F) 2014-06-26 15:12:00 98.0 F [facility] Vin Systolic (mm Hg) 2014-06-26 15:12:00 Mendoza rial Vin Heart Rate 2014-06-26 15:12:00 Memorial Vin Diastolic (mm Hg) 2014-06-26 15:12:00 Mem orial Vin Respitory Rate 2014-06-26 15:12:00 Memori al [place] Systolic (mm Hg) 2014-06-26 13:53:00 Mendoza rial [place] Diastolic (mm Hg) 2014-06-26 13:53:00 Mem orial Vin Respitory Rate 2014-06-26 13:53:00 Memori al Vin Temperature Oral (F) 2014-06-26 13:53:00 98.0 F [facility] [place] Temperature Oral (F) 2014-06-26 12:37:00 98.2 F [facility] [place] Respitory Rate 2014-06-26 12:37:00 Memori al Vin Systolic (mm Hg) 2014-06-26 12:37:00 Mendoza rial Vin Diastolic (mm Hg) 2014-06-26 12:37:00 Mem orial Vin Heart Rate 2014-06-26 09:21:00 [facility] [place] Heart Rate 2014-06-26 06:08:00 [facility] Vin Height 2014-06-26 05:35:00 154.94 cm [facility] [place] Weight 2014-06-26 05:35:00 [facility] Vin BMI Calculated 2014-06-26 05:35:00 [facility] [place] Respitory Rate 2013-04-15 06:10:00 [facility] [place] Diastolic (mm Hg) 2013-04-15 06:10:00 [facility] [place] Heart Rate 2013-04-15 06:10:00 [facility] [place] Systolic (mm Hg) 2013-04-15 06:10:00 Mendoza rial [place] Temperature Oral (F) 2013-04-15 06:10:00 98.7 F [facility] Vin Respitory Rate 2013-04-15 05:37:00 Memori al Vin Diastolic (mm Hg) 2013-04-15 05:37:00 Mem orial Vin Systolic (mm Hg) 2013-04-15 05:37:00 Mendoza rial [place] Temperature Oral (F) 2013-04-15 05:37:00 98.2 F [facility] [place] Heart Rate 2013-04-15 05:37:00 [facility] Vin Height 2013-04-15 02:06:00 160.02 cm [facility] Vin Weight 2013-04-15 02:06:00 [facility] [place] Temperature Oral (F) 2013-04-15 02:06:00 98.6 F [facility] [place] Respitory Rate 2013-04-15 02:06:00 Memori al [place] Heart Rate 2013-04-15 02:06:00 [facility] [place] Diastolic (mm Hg) 2013-04-15 02:06:00 [facility] [place] Systolic (mm Hg) 2013-04-15 02:06:00 Mendoza rial [place] Weight 2012-03-14 21:33:00 [facility] [place] Systolic (mm Hg) 2011-12-01 00:33:00 Mendoza rial [place] Respitory Rate 2011-12-01 00:33:00 Memori al [place] Heart Rate 2011-12-01 00:33:00 [facility] [place] Diastolic (mm Hg) 2011-12-01 00:33:00 Mem orial Vin Temperature Oral (F) 2011-12-01 00:33:00 99.6 F [facility] Vin Diastolic (mm Hg) 2011-11-30 21:00:00 Mem orial Vin Heart Rate 2011-11-30 21:00:00 [facility] [place] Respitory Rate 2011-11-30 21:00:00 Memori al [place] Systolic (mm Hg) 2011-11-30 21:00:00 Mendoza rial [place] Temperature Oral (F) 2011-11-30 21:00:00 99.8 F [facility] [place] Respitory Rate 2011-11-30 16:30:00 Memori al Vin Systolic (mm Hg) 2011-11-30 16:30:00 Mendoza rial Vin Diastolic (mm Hg) 2011-11-30 16:30:00 Mem orial Vin Heart Rate 2011-11-30 16:30:00 Memorial Vin Temperature Oral (F) 2011-11-30 16:30:00 99.8 F [facility] [place] Weight 2011-11-29 11:40:00 [facility] [place] Height 2011-11-29 11:40:00 157.48 cm [facility] [place] Weight 2011-11-28 17:16:00 [facility] Vin Weight 2011-09-18 13:30:00 [facility] [place] Height 2011-09-18 13:30:00 154.94 cm [facility] [place] Heart Rate 2011-09-09 13:31:00 [facility] [place] Systolic (mm Hg) 2011-09-09 13:02:00 Mendoza rial [place] Diastolic (mm Hg) 2011-09-09 13:02:00 Mem orial Vin Respitory Rate 2011-09-09 13:02:00 Memori al [place] Temperature Oral (F) 2011-09-09 13:02:00 97.5 F [facility] Vin Diastolic (mm Hg) 2011-09-09 08:00:00 Mem orial Vin Heart Rate 2011-09-09 08:00:00 [facility] Vin Temperature Oral (F) 2011-09-09 08:00:00 98.6 F [facility] Vin Respitory Rate 2011-09-09 08:00:00 Memori al Vin Systolic (mm Hg) 2011-09-09 08:00:00 Mendoza rial Vin Respitory Rate 2011-09-09 04:55:00 Memori al Vin Diastolic (mm Hg) 2011-09-09 04:55:00 [facility] [place] Systolic (mm Hg) 2011-09-09 04:55:00 Mendoza rial [place] Heart Rate 2011-09-09 04:55:00 [facility] Vin Temperature Oral (F) 2011-09-09 00:55:00 98.7 F [facility] [place] Weight 2011-09-01 19:59:00 [facility] Vin Height 2011-09-01 19:59:00 154.94 cm [facility] Vin Height 2011-09-01 07:01:00 154.94 cm [facility] [place] Weight 2011-09-01 07:01:00 [facility] [place] Respitory Rate 2011-08-23 18:00:00 [facility] al [place] Heart Rate 2011-08-23 18:00:00 [facility] Vin Systolic (mm Hg) 2011-08-23 18:00:00 Mendoza rial Vin Diastolic (mm Hg) 2011-08-23 18:00:00 Mem orial Vin Temperature Oral (F) 2011-08-23 18:00:00 97.7 F [facility] [place] Heart Rate 2011-08-23 14:24:00 [facility] [place] Temperature Oral (F) 2011-08-23 14:24:00 98.2 F [facility] [place] Diastolic (mm Hg) 2011-08-23 14:24:00 Mem orial Vin Systolic (mm Hg) 2011-08-23 14:24:00 Mendoza rial Vin Respitory Rate 2011-08-23 14:24:00 Memori al Vin Systolic (mm Hg) 2011-08-23 11:15:00 Mendoza rial Vin Diastolic (mm Hg) 2011-08-23 11:15:00 [facility] [place] Temperature Oral (F) 2011-08-23 11:00:00 98.3 F [facility] Vin Heart Rate 2011-08-23 11:00:00 [facility] Vin Respitory Rate 2011-08-22 22:00:00 [facility] al [place] Height 2011-08-20 09:12:00 154.94 cm [facility] Vin Weight 2011-08-20 09:12:00 [facility] Vin Height 2011-08-19 20:28:00 154.94 cm [facility] Vin Weight 2011-08-19 20:28:00 [facility] Vin Procedures Procedure Date / Time Performed Performing Clinician [facility] e Emergency department visit 2013-04-15 05:00:00 [facility] [place] for the evaluation and management of a patient, which requires these 3 kamara components within the constraints imposed by the urgency of the patient's clinical condition and/or mental status: A comprehensive history; A comprehensi Injection or Infusion of 2013-04-15 05:00:00 Mem orial Vin Other Therapeutic or Prophylactic Substance Intravenous infusion, 2013-04-15 05:00:00 Brandon al [place] hydration; each additional hour (List separately in addition to code for primary procedure) Therapeutic, prophylactic, 2013-04-15 05:00:00 [facility] [place] or diagnostic injection (specify substance or drug); each additional sequential intravenous push of a new substance/drug (List separately in addition to code for primary procedure) Therapeutic, prophylactic, 2013-04-15 05:00:00 [facility] Vin or diagnostic injection (specify substance or drug); intravenous push, single or initial substance/drug section Shahid Joseph n [facility] Start End Encounter Admission Attending Care Care Encounter Source Date/Time Date/Time Type Type Clinicians Facility Department ID 2020-12-20 Outpatient [facility] [id number] [facility] 10:20:51 2020-10-27 2020-10-27 [id number] 00:00:00 00:00:00 (Out) Oz Sims [id number] [employer] [id number] Professio [id number] nal 059 [facility] 2020-10-24 2020-10-24 Orders Doctor JOANNA [id number] 00:00:00 00:00:00 Only Unassigned, MAGDALENO [id number] [place] [facility] [id number] 2020-09-24 2020-09-24 [facility] [id number] 00:00:00 00:00:00 Jose Luis [place] [id number] [employer] [id number] Professio [id number] nal 220 [facility] 2020-09-09 2020-09-09 [id number] 00:00:00 00:00:00 Outreach Earl PRIMARY [id number] Manuel CARE [id number] PAVILLION [id number] 2020-07-23 2020-07-23 Office [facility] [id number] 13:31:20 14:37:36 Visit Deja PRIMARY [id number] A CARE [id number] PAVILLION [id number] 2020-01-25 2020-01-31 Inpatient [address] [facility] [id number] 21:31:00 18:15:00 Rei Waldron [facility] 2016-07-23 2016-07-30 Outpatient Yaquelin [facility] [id number] 20:04:00 10:20:00 Luna 10 2016-06-10 2016-06-15 Outpatient Fran[facility] [id number] 10:02:00 12:23:00 Joe Sanchez 2014-06-25 2014-06-26 Outpatient [facility] [id number] 23:25:00 09:14:00 Atul Priest 2013-04-14 2013-04-15 Outpatient [facility] [id number] Memoria 21:04:00 01:45:00 Vin Vin 07 [facility] 2013-04-14 2013-04-15 Outpatient [facility] [id number] Memoria 21:04:00 01:45:00 [place] Vin 07 [facility] 2013-04-14 2013-04-15 Outpatient [facility] [id number] Memoria 21:04:00 01:45:00 [place] 07 [facility] 2013-04-14 2013-04-15 Outpatient [facility] [id number] Memoria 21:04:00 01:45:00 [place] [address] [place] [address] [facility] 2013-04-14 2013-04-15 Outpatient [facility] [id number] Memoria 21:04:00 01:45:00 [place] Vin [address] [place], [place] [address] [facility] Results Test Description Test Time Test [...] the main Lab for analysi s. Urine [id number] 11:32:13 Test Item Value Reference Range Interpretation [...] Escherichia coli C Urine Added by [id number]_[id number] [id number] 07:52:10 Test Item Value Reference Range Interpretation Comments Glucose POC (test 160 mg/dL 70-115 H If you con stuffed casing tier your code = Glucose POC) patient critically ill, the Merlin-Accu Check Infrom II meter should not be used for Glucose determination. Draw a venous Glucose and send to the main Lab for analysis. POC [id number] 19:32:05 Test Item Value Reference Range Interpretation Comments Glucose POC (test 184 mg/dL 70-115 H If you con stuffed casing tier your code = Glucose POC) patient critically ill, the Merlin-Accu Check Infrom II meter should not be used for Glucose determination. Draw a venous Glucose and send to the main Lab for analysis. POC [id number] 17:16:35 Test Item Value Reference Range Interpretation Comments Glucose POC (test 281 mg/dL 70-115 H Notify RN or MDIf you code = Glucose POC) consider your patient critically ill, the Merlin-Accu Chec k Infrom II meter should not be used for Glucos e determination. Draw a venous Glucose and send to the main Lab for analysis. POC [id number] 12:00:38 Test Item Value Reference Range Interpretation Comments Glucose POC (test 138 mg/dL 70-115 H Notify RN or MDIf you code = Glucose POC) consider your patient critically ill, the Merlin-Accu Chec k Infrom II meter should not be used for Glucos e determination. Draw a venous Glucose and send to the main Lab for analysis. POC [id number] 07:41:32 Test Item Value Reference Range Interpretation Comments Glucose POC (test 206 mg/dL 70-115 H Notify RN or MDIf you code = Glucose POC) consider your patient critically ill, the Merlin-Accu Chec k Infrom II meter should not be used for Glucos e determination. Draw a venous Glucose and send to the main Lab for analysis. Urinalysis [id number] 21:07:21 Test Item Value Reference Range Interpretation Comments UA WBC (test code = UA WBC) TNTC 0-5 A UA RBC (test code = UA RBC) 6-10 0-5 A UA Bacteria (test code = UA Bacteria) Profuse A UA Squam Epithelial (test code = UA 6-10 A Squam Epithelial) Urinalysis with Culture, if [id number] 20:35:14 Test Item Value Reference Range Interpretation [...] Micro Indicated Not Indicated A Ind?) POC [id number] 19:06:34 Test Item Value Reference Range Interpretation Comments Glucose POC (test 207 mg/dL 70-115 H If you con stuffed casing tier your code = Glucose POC) patient critically ill, the Merlin-Accu Check Infrom II meter should not be used for Glucose determination. Draw a venous Glucose and send to the main Lab for analysis. POC [id number] 17:12:03 Test Item Value Reference Range Interpretation Comments Glucose POC (test 173 mg/dL 70-115 H Notify RN or MDIf you code = Glucose POC) consider your patient critically ill, the Merlin-Accu Chec k Infrom II meter should not be used for Glucos e determination. Draw a venous Glucose and send to the main Lab for analysis. POC [id number] 11:58:01 Test Item Value Reference Range Interpretation Comments Glucose POC (test 289 mg/dL 70-115 H Notify RN or MDIf you code = Glucose POC) consider your patient critically ill, the Merlin-Accu Chec k Infrom II meter should not be used for Glucos e determination. Draw a venous Glucose and send to the main Lab for analysis. POC [id number] 08:19:37 Test Item Value Reference Range Interpretation Comments Glucose POC (test 201 mg/dL 70-115 H Notify RN or MDIf you code = Glucose POC) consider your patient critically ill, the Merlin-Accu Chec k Infrom II meter should not be used for Glucos e determination. Draw a venous Glucose and send to the main Lab for analysis. POC [id number] 20:37:35 Test Item Value Reference Range Interpretation Comments Glucose POC (test 272 mg/dL 70-115 H If you con stuffed casing tier your code = Glucose POC) patient critically ill, the Merlin-Accu Check Infrom II meter should not be used for Glucose determination. Draw a venous Glucose and send to the main Lab for analysis. POC [id number] 17:23:05 Test Item Value Reference Range Interpretation Comments Glucose POC (test 229 mg/dL 70-115 H If you con stuffed casing tier your code = Glucose POC) patient critically ill, the Merlin-Accu Check Infrom II meter should not be used for Glucose determination. Draw a venous Glucose and send to the main Lab for analysis. POC [id number] 12:01:01 Test Item Value Reference Range Interpretation Comments Glucose POC (test 155 mg/dL 70-115 H If you con stuffed casing tier your code = Glucose POC) patient critically ill, the Merlin-Accu Check Infrom II meter should not be used for Glucose determination. Draw a venous Glucose and send to the main Lab for analysis. POC [id number] 08:07:32 Test Item Value Reference Range Interpretation Comments Glucose POC (test 248 mg/dL 70-115 H If you con stuffed casing tier your code = Glucose POC) patient critically ill, the Merlin-Accu Check Infrom II meter should not be used for Glucose determination. Draw a venous Glucose and send to the main Lab for analysis. IG [id number] 06:50:39 Test Item Value Reference Range Interpretation Comments IG (test code = IG) 0.7 % 0.0-5.0 IG Abs (test code = IG Abs) 0 x10 N Complete Blood Count with [id number] 06:50:38 Test Item Value Reference Range Interpretation [...] code = IPF) 0 % N Automated [id number] 06:50:38 Test Item Value Reference Range Interpretation Comments Neutro Auto (test code = Neutro 50.3 % 36.0-70.0 Auto) Lymph Auto (test code = Lymph Auto) 38.6 % 12.0-44.0 [place] Auto (test code = [place] Auto) 7.3 % 0.0-11.0 Eos, Auto (test code = Eos, Auto) 2.4 % 0.0-7.0 Basophil Auto (test code = Basophil 0.7 % 0.0-2.0 Auto) Neutro Absolute (test code = Neutro 3.0 x10 1.6-7.4 Absolute) Lymph Absolute (test code = Lymph 2.28 x10 .50-4.60 Absolute) [place] Absolute (test code = [place] .43 x10 .00-1.20 Absolute) Eos Absolute (test code = Eos 0.14 x10 0.00-0.74 Absolute) Baso Absolute (test code = Baso 0.04 x10 0.00-0.21 Absolute) Basic Metabolic [id number] 05:38:20 Test Item Value Reference Range Interpretation [...] = Lipemia) 0 mg/dL 8-11 Basic Metabolic [id number] 05:38:20 Test Item Value Reference Range Interpretation [...] = 0 mg/dL 8-11 Lipemia) Basic Metabolic [id number] 05:38:20 Test Item Value Reference Range Interpretation [...] ag e have not been validated by [facility] MDRD study and should be interpreted [...] ag e have not been validated by [facility] MDRD study and should be interpreted [...] code = 0 mg/dL 8-11 Lipemia) POC [id number] 20:28:33 Test Item Value Reference Range Interpretation Comments Glucose POC (test 169 mg/dL 70-115 H If you con stuffed casing tier your code = Glucose POC) patient critically ill, the Merlin-Accu Check Infrom II meter should not be used for Glucose determination. Draw a venous Glucose and send to the main Lab for analysis. POC [id number] 16:39:30 Test Item Value Reference Range Interpretation Comments Glucose POC (test 103 mg/dL 70-115 If you con stuffed casing tier your code = Glucose POC) patient critically ill, the Merlin-Accu Check Infrom II meter should not be used for Glucose determination. Draw a venous Glucose and send to the main Lab for analysis. RPR [id number] 12:08:56 Test Item Value Reference Range Interpretation Comments RPR Qual (test code = RPR Qual) Non-Reactive Non-Reactive Reactive Control (test code = Reactive Reactive Control) Weak Reactive Control (test Weak Reactive code = Weak Reactive Control) Non-Reactive Control (test code Non-Reactive = Non-Reactive Control) Lot # (test code = Lot #) [id number] N Expiration Dt (test code = 03-20-2021 N Expiration Dt) POC [id number] 11:52:31 Test Item Value Reference Range Interpretation Comments Glucose POC (test 250 mg/dL 70-115 H If you con stuffed casing tier your code = Glucose POC) patient critically ill, the Merlin-Accu Check Infrom II meter should not be used for Glucose determination. Draw a venous Glucose and send to the main Lab for analysis. POC [id number] 07:55:29 Test Item Value Reference Range Interpretation Comments Glucose POC (test 205 mg/dL 70-115 H If you con stuffed casing tier your code = Glucose POC) patient critically ill, the Merlin-Accu Check Infrom II meter should not be used for Glucose determination. Draw a venous Glucose and send to the main Lab for analysis. Lipid [id number] 05:46:04 Test Item Value Reference Range Interpretation [...] LDL/HDL Ratio=L DL Calc/HDL Chol Thyroid Stimulating [id number] 05:46:04 Test Item Value Reference Range Interpretation Comments TSH (test code = TSH) 3.274 mcIU/mL 0.550-4.780 Hemoglobin [id number] 05:41:08 Test Item Value Reference Range Interpretation Comments Hemoglobin A1c (test code 7.6 % 4.0-5.8 H Di abetic >=6.5 = Hemoglobin A1c) %Prediabet es 5.7-6.4 %Normal <5.7 % Hepatitis B Surface [id number] 21:19:36 Test Item Value Reference Range Interpretation Comments Hep Bs Ag (test code = Hep Bs Non-Reactive Non-Reactive Ag) Novel Coronavirus SARS-CoV-2, [id number] 11:16:16 Test Item Value Reference Range Interpretation [...] Emergency Use Authorization." Novel Coronavirus (COVID-19), EMANUEL [id number] 11:11:24TNPTest not sent and performed at [facility].Rapid was perfomed in Microbiology.Wrong covid test was ord ered.Urine DOA [id number] 00:17:49 Test Item Value Reference Range Interpretation [...] Propoxyphene Confirmation wi thin 7 days. Alcohol [id number] 00:17:29 Test Item Value Reference Range Interpretation Comments Ethanol Level 9.0 mg/dL N The pharmacolo gical (test code = response to blo od alcohol Ethanol Level) levels may va ry from individual to i ndividual. The fatal omkar ntration has been report ed to be >400 mg/dl. Comprehensive Metabolic [id number] 00:17:28 Test Item Value Reference Range Interpretation [...] = Lipemia) 0 g/dL 1-2 Comprehensive Metabolic [id number] 00:17:28 Test Item Value Reference Range Interpretation [...] = 0 g/dL 1-2 Lipemia) Comprehensive Metabolic [id number] 00:17:28 Test Item Value Reference Range Interpretation [...] ag e have not been validated by [facility] MDRD study and should be interpreted [...] ag e have not been validated by [facility] MDRD study and should be interpreted [...] (test code = 0 g/dL 1-2 Lipemia) IG [id number] 23:26:28 Test Item Value Reference Range Interpretation Comments IG (test code = IG) 0.7 % 0.0-5.0 IG Abs (test code = IG Abs) 0 x10 N Complete Blood Count with [id number] 23:26:28 Test Item Value Reference Range Interpretation [...] code = IPF) 0 % N Automated [id number] 23:26:28 Test Item Value Reference Range Interpretation Comments Neutro Auto (test code = Neutro 67.1 % 36.0-70.0 Auto) Lymph Auto (test code = Lymph Auto) 23.3 % 12.0-44.0 [place] Auto (test code = [place] Auto) 5.8 % 0.0-11.0 Eos, Auto (test code = Eos, Auto) 2.3 % 0.0-7.0 Basophil Auto (test code = Basophil 0.8 % 0.0-2.0 Auto) Neutro Absolute (test code = Neutro 6.0 x10 1.6-7.4 Absolute) Lymph Absolute (test code = Lymph 2.10 x10 .50-4.60 Absolute) [place] Absolute (test code = [place] .52 x10 .00-1.20 Absolute) Eos Absolute (test code = Eos 0.21 x10 0.00-0.74 Absolute) Baso Absolute (test code = Baso 0.07 x10 0.00-0.21 Absolute) HERPES VIRUS ANTIBODY, [id number] 21:46:00 Test Item Value Reference Range Interpretation Comments HERPES VIRUS IGM (BEAKER) Negative SE E ATTACHMENT (test code = 1808) BLOOD [id number] 06:00:00 Test Item Value Reference Range Interpretation Comments CULTURE (BEAKER) (test No growth in 5 days code = 1095) BLOOD [id number] 06:00:00 Test Item Value Reference Range Interpretation Comments CULTURE (BEAKER) (test No growth in 5 days code = 1095) POCT-GLUCOSE [id number] 12:11:00 Test Item Value Reference Range Interpretation Comments POC-GLUCOSE METER 154 mg/dL 70-110 H TESTED AT [place] [address] ([facility]) (test code = [facility] 1538) [id number] POCT-GLUCOSE [id number] 07:53:00 Test Item Value Reference Range Interpretation Comments POC-GLUCOSE METER 87 mg/dL 70-110 TESTED AT [place] [address] ([facility]) (test code = [facility] [address] 1538) POCT-GLUCOSE [id number] 06:49:00 Test Item Value Reference Range Interpretation Comments POC-GLUCOSE METER 79 mg/dL 70-110 TESTED AT [place] [address] ([facility]) (test code = [facility] [address] 1538) COMPREHENSIVE METABOLIC [id number] 06:15:00 Test Item Value Reference Range Interpretation [...] S NOT APPLICABLE FOR DIALYSIS PATIEN TS. [id number] 06:11:00 Test Item Value Reference Range Interpretation Comments MAGNESIUM (BEAKER) (test code = 2.1 mg/dL 1.6-2.6 627) HEPATIC FUNCTION [id number] 06:11:00 Test Item Value Reference Range Interpretation [...] code = 513 U/L 6-55 H 347) [id number] 05:30:00 Test Item Value Reference Range Interpretation Comments FIBRINOGEN LEVEL (BEAKER) (test 368 mg/dl 225-434 code = 658) [id number] 05:30:00 Test Item Value Reference Range Interpretation Comments PARTIAL THROMBOPLASTIN TIME 42.2 seconds 22.5-36.0 H (BEAKER) (test code = 760) PROTHROMBIN [id number] 05:29:00 Test Item Value Reference Range Interpretation Comments PROTIME ([facility]) (test code = 14.8 seconds 11.7-14.7 H 759) INR ([facility]) (test code = 370) 1.2 <=5.9 RECOMMENDED COUMADIN/WARFARIN INR THERAPY RANGESSTANDARD DOSE: 2.0 - 3.0 Includes: PROPHYLAXIS forvenous thrombosis, systemic embolization; TREATMENT for venous thrombosis and/or pulmonary embolus.HIGH RISK: Target INR is 2.5-3.5 for patients with mechanical heart valves.POCT-GLUCOSE [id number] 21:09:00 Test Item Value Reference Range Interpretation Comments POC-GLUCOSE METER 178 mg/dL 70-110 H TESTED AT [place] [address] ([facility]) (test code = [facility] Eduin [facility] 1538) [address] POCT-GLUCOSE [id number] 17:18:00 Test Item Value Reference Range Interpretation Comments POC-GLUCOSE METER 178 mg/dL 70-110 H TESTED AT [place] [address] ([facility]) (test code = [facility] 1538) [address] POCT-GLUCOSE [id number] 13:48:00 Test Item Value Reference Range Interpretation Comments POC-GLUCOSE METER 150 mg/dL 70-110 H TESTED AT [place] [address] ([facility]) (test code = [facility] 1538) [address] FACTOR 5 ACTIVITY (BLEEDING RISK)2017-01-06 10:04:00 Test Item Value Reference Range Interpretation Comments FACTOR V ACTIVITY ([facility]) (test code 90.0 % 60.0-150.0 = 665) Effective 10/24/2013: Reference Range Change-Adult onlyNew: 60.0-150.0 Previous: 50.0-150.0CYTOMEGALOVIRUS ANTIBODY, [id number] 09:42:00 Test Item Value Reference Range Interpretation Comments CYTOMEGALOVIRUS IGM ANTIBODY Negative ([facility]) (test code = 816) HERPES VIRUS ANTIBODY, [id number] 08:59:00 Test Item Value Reference Range Interpretation Comments 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[facility]) (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 G 1807) CYTOMEGALOVIRUS ANTIBODY, [id number] 08:59:00 Test Item Value Reference Range Interpretation Comments CYTOMEGALOVIRUS IGG ANTIBODY Positive (BEAKER) (test code = 790) EBV-VCA ANTIBODY, [id number] 08:59:00 Test Item Value Reference Range Interpretation Comments JASE-WALL VCA IGG (BEAKER) (test Positive code = 983) EBV-VCA ANTIBODY, [id number] 08:59:00 Test Item Value Reference Range Interpretation Comments JASE-WALL VCA IGM (BEAKER) (test Negative code = 984) POCT-GLUCOSE [id number] 07:59:00 Test Item Value Reference Range Interpretation Comments POC-GLUCOSE METER 81 mg/dL 70-110 TESTED AT [facility] 6720 (BEAKER) (test code = [place] [address] 8698) COMPREHENSIVE METABOLIC [id number] 06:23:00 Test Item Value Reference Range Interpretation [...] S NOT APPLICABLE FOR DIALYSIS PATIEN TS. [id number] 06:17:00 Test Item Value Reference Range Interpretation Comments MAGNESIUM (BEAKER) (test code = 1.8 mg/dL 1.6-2.6 627) HEPATIC FUNCTION [id number] 06:17:00 Test Item Value Reference Range Interpretation [...] code = 779 U/L 6-55 H 347) [id number] 06:00:00 Test Item Value Reference Range Interpretation Comments FIBRINOGEN LEVEL (BEAKER) (test 390 mg/dl 225-434 code = 658) [id number] 06:00:00 Test Item Value Reference Range Interpretation Comments PARTIAL THROMBOPLASTIN TIME 40.2 seconds 22.5-36.0 H (BEAKER) (test code = 760) PROTHROMBIN [id number] 05:59:00 Test Item Value Reference Range Interpretation Comments PROTIME (BEAKER) (test code = 14.6 seconds 11.7-14.7 759) INR (BEAKER) (test code = 370) 1.2 <=5.9 RECOMMENDED COUMADIN/WARFARIN INR THERAPY RANGESSTANDARD DOSE: 2.0 - 3.0 Includes: PROPHYLAXIS forvenous thrombosis, systemic embolization; TREATMENT for venous thrombosis and/or pulmonary embolus.HIGH RISK: Target INR is 2.5-3.5 for patients with mechanical heart valves.POCT-GLUCOSE [id number] 21:46:00 Test Item Value Reference Range Interpretation Comments POC-GLUCOSE METER 153 mg/dL 70-110 H TESTED AT [place] [address] ([facility]) (test code = [place] Denny [facility] 1538) [address] POCT-GLUCOSE [id number] 18:47:00 Test Item Value Reference Range Interpretation Comments POC-GLUCOSE METER 181 mg/dL 70-110 H TESTED AT [place] [address] ([facility]) ([facility] 1538) [address] POCT-GLUCOSE [id number] 12:40:00 Test Item Value Reference Range Interpretation Comments POC-GLUCOSE METER 178 mg/dL 70-110 H TESTED AT [place] [address] ([facility]) (test code = [place] [facility] 1538) [address] POCT-GLUCOSE [id number] 07:51:00 Test Item Value Reference Range Interpretation Comments POC-GLUCOSE METER 166 mg/dL 70-110 H TESTED AT [place] [address] ([facility]) (test code = [facility] Eduin [facility] 1538) [address] COMPREHENSIVE METABOLIC [id number] 03:26:00 Test Item Value Reference Range Interpretation [...] S NOT APPLICABLE FOR DIALYSIS PATIEN TS. [id number] 03:22:00 Test Item Value Reference Range Interpretation Comments MAGNESIUM (BEAKER) (test code = 1.4 mg/dL 1.6-2.6 L 627) HEPATIC FUNCTION [id number] 03:22:00 Test Item Value Reference Range Interpretation [...] code = 1009 U/L 6-55 H 347) [id number] 03:12:00 Test Item Value Reference Range Interpretation Comments AMMONIA (BEAKER) (test code = 348) 29 mol/L 18-72 [id number] 03:10:00 Test Item Value Reference Range Interpretation Comments PARTIAL THROMBOPLASTIN TIME 42.3 seconds 22.5-36.0 H (BEAKER) (test code = 760) PROTHROMBIN [id number] 03:09:00 Test Item Value Reference Range Interpretation Comments PROTIME (BEAKER) (test code = 16.4 seconds 11.7-14.7 H 759) INR (BEAKER) (test code = 370) 1.3 <=5.9 RECOMMENDED COUMADIN/WARFARIN INR THERAPY RANGESSTANDARD DOSE: 2.0 - 3.0 Includes: PROPHYLAXIS forvenous thrombosis, systemic embolization; TREATMENT for venous thrombosis and/or pulmonary embolus.HIGH RISK: Target INR is 2.5-3.5 for patients with mechanical heart valves.[id number] 03:09:00 Test Item Value Reference Range Interpretation Comments FIBRINOGEN LEVEL (BEAKER) (test 413 mg/dl 225-434 code = 658) CBC W/PLT COUNT & AUTO [id number] 03:09:00 Test Item Value Reference Range Interpretation [...] L 0.00-0.20 (test code = 417) 0.00POCT-GLUCOSE [id number] 22:33:00 Test Item Value Reference Range Interpretation Comments POC-GLUCOSE METER 230 mg/dL 70-110 H TESTED AT [place] [address] ([facility]) (test code = [facility] 1538) [address] POCT-GLUCOSE [id number] 18:17:00 Test Item Value Reference Range Interpretation Comments POC-GLUCOSE METER 222 mg/dL 70-110 H TESTED AT [place] [address] ([facility]) (test code = [facility] 1538) [address] COMPREHENSIVE METABOLIC [id number] 16:59:00 Test Item Value Reference Range Interpretation [...] PATIEN TS. PERIPHERAL BLOOD SMEAR - PATHOLOGIST [id number] 15:30:00 Test Item Value Reference Range Interpretation Comments RBC MORPHOLOGY Polychromasia (BEAKER) (test code = 2846) RBC MORPHOLOGY Anisocytosis (BEAKER) (test code = 79664) PERIPHERAL SMR REVIEW Cell counts confirmed (BEAKER) (test code = 5870) [id number] Josefina Lara M.D. ([facility]) (test code = (electronic signature) 8459) PROTHROMBIN [id number] 15:12:00 Test Item Value Reference Range Interpretation [...] Negative Negative (test code = 418) POCT-GLUCOSE [id number] 12:47:00 Test Item Value Reference Range Interpretation Comments POC-GLUCOSE METER 212 mg/dL 70-110 H TESTED AT [facility] 6720 (BEAKER) (test code = [place] 1538) [address] [id number] 12:34:00 Test Item Value Reference Range Interpretation Comments RPR SCREEN (BEAKER) (test code = Nonreactive Nonreactive 420) CLOSTRIDIUM DIFFICILE TOXIN [id number] 10:12:00 Test Item Value Reference Range Interpretation [...] Reference Range Change-Adult onlyNew: 60.0-150.0 Previous: 50.0-150.0POCT-GLUCOSE [id number] 06:40:00 Test Item Value Reference Range Interpretation Comments POC-GLUCOSE METER 167 mg/dL 70-110 H TESTED AT [facility] 6720 (MADIE) (test code = [place] 1538) [address] COMPREHENSIVE METABOLIC [id number] 04:08:00 Test Item Value Reference Range Interpretation Comments TOTAL PROTEIN 4.7 gm/dL 6.0-8.3 L (Nutrino) (test code = 770) ALBUMIN (BEAKER) 2.1 [...] ESTIM ATED GFR. Specimen slightly ictericHEPATIC FUNCTION [id number] 04:06:00 Test Item Value Reference Range Interpretation [...] 1091 U/L 6-55 H 347) Specimen slightly [id number] 04:01:00 Test Item Value Reference Range Interpretation Comments FIBRINOGEN LEVEL (BEAKER) (test 379 mg/dl 225-434 code = 658) [id number] 04:01:00 Test Item Value Reference Range Interpretation Comments PARTIAL THROMBOPLASTIN TIME 40.7 seconds 22.5-36.0 H (BEAKER) (test code = 760) PROTHROMBIN [id number] 04:00:00 Test Item Value Reference Range Interpretation [...] L 0.00-0.20 (test code = 417) 0.00POCT-GLUCOSE [id number] 00:19:00 Test Item Value Reference Range Interpretation Comments POC-GLUCOSE METER 159 mg/dL 70-110 H TESTED AT [place] [address] ([facility]) (test code = [facility] 1538) [address] POCT-GLUCOSE [id number] 18:56:00 Test Item Value Reference Range Interpretation Comments POC-GLUCOSE METER 192 mg/dL 70-110 H TESTED AT [place] [address] ([facility]) (test code = [facility] 1538) [address] COMPREHENSIVE METABOLIC [id number] 16:55:00 Test Item Value Reference Range Interpretation [...] CALCULATE ESTIM ATED GFR. Specimen slightly ictericPROTHROMBIN [id number] 16:37:00 Test Item Value Reference Range Interpretation Comments PROTIME (BEAKER) (test code = 20.9 seconds 11.7-14.7 H 759) INR (BEAKER) (test code = 370) 1.8 <=5.9 RECOMMENDED COUMADIN/WARFARIN INR THERAPY RANGESSTANDARD DOSE: 2.0 - 3.0 Includes: PROPHYLAXIS forvenous thrombosis, systemic embolization; TREATMENT for venous thrombosis and/or pulmonary embolus.HIGH RISK: Target INR is 2.5-3.5 for patients with mechanical heart valves.HEPATITIS B SURFACE [id number] 14:05:00 Test Item Value Reference Range Interpretation Comments HEPATITIS B SURFACE ANTIBODY < mIU/mL <8.0 (BEAKER) (test code = 647) HEPATITIS B CORE ANTIBODY, [id number] 13:43:00 Test Item Value Reference Range Interpretation Comments HEPATITIS B CORE TOTAL ANTIBODY Nonreactive Nonreactive (BEAKER) (test code = 497) BLOOD GAS, [id number] 13:35:00 Test Item Value Reference Range Interpretation [...] code = 1819) 28.0 % URINALYSIS W/ [id number] 13:16:00 Test Item Value Reference Range Interpretation [...] 1584) SOURCE(BEAKER) (test code = Urine, [place] 9021) VITAMIN D, 58-[id number] 13:14:00 Test Item Value Reference Range Interpretation Comments VITAMIN D 25-OH (BEAKER) (test code = < ng/mL 13.0-47.8 L 2764) ALPHA FETOPROTEIN (AFP), TUMOR [id number] 13:06:00 Test Item Value Reference Range Interpretation Comments ALPHA-FETOPROTEIN (BEAKER) (test code < ng/mL <10.0 = 1094) Effective 05/08/2014: Reference Range ChangeNew: <10.0 Previous: 0.0-8.0 HEMOGLOBIN [id number] 13:05:00 Test Item Value Reference Range Interpretation Comments HEMOGLOBIN A1C (BEAKER) (test code = 7.6 % 4.3-6.1 H 368) CARCINOEMBRYONIC ANTIGEN (CEA)2017-01-03 12:59:00 Test Item Value Reference Range Interpretation Comments CARCINOEMBRYONIC ANTIGEN (BEAKER) 2.0 ng/mL 0.0-5.0 (test code = 685) [id number] 12:59:00 Test Item Value Reference Range Interpretation Comments FERRITIN (BEAKER) (test code = 1841 ng/mL 5-275 H 361) Effective 05/08/2014: Reference Range ChangeNew: Male 5-275 Previous: Male 22-322 Female 5-275 Female 26-154Y30266-05-16 12:58:00 Test Item Value Reference Range Interpretation Comments T4 TOTAL (BEAKER) (test code = 895) 4.5 ug/dL 4.9-11.7 L [id number] 12:58:00 Test Item Value Reference Range Interpretation Comments THYROID STIMULATING HORMONE 1.79 uIU/mL 0.35-4.94 (BEAKER) (test code = 772) [id number] 12:58:00 Test Item Value Reference Range Interpretation Comments T3 TOTAL (BEAKER) (test code = 656) 34 ng/dL 48-159 L Effective 05/08/2014: Reference Range ChangeNew: 48-159 Previous: 60-181 CALCIUM, [id number] 12:47:00 Test Item Value Reference Range Interpretation Comments CALCIUM IONIZED (BEAKER) (test 1.05 mmol/L 1.12-1.27 L code = 698) PH, BLOOD (BEAKER) (test code = 7.43 1810) [id number] 12:42:00 Test Item Value Reference Range Interpretation [...] % 20-55 (test code = 2590) URIC [id number] 12:40:00 Test Item Value Reference Range Interpretation Comments URIC ACID (BEAKER) (test code = 16.0 mg/dL 2.6-7.2 H 773) Specimen slightly ictericLIPID [id number] 12:40:00 Test Item Value Reference Range Interpretation [...] 160-189 Very High >=190 Specimen slightly ictericBILIRUBIN, [id number] 12:40:00 Test Item Value Reference Range Interpretation Comments BILIRUBIN DIRECT (BEAKER) (test 2.4 mg/dL 0.1-0.5 H code = 706) GAMMA GLUTAMYL TRANSFERASE (GGT)2017-01-03 12:40:00 Test Item Value Reference Range Interpretation Comments GAMMA GLUTAMYL TRANSFERASE (BEAKER) 53 U/L 9-64 (test code = 364) Specimen slightly eqyfupzAWQQOVH4772-36-60 12:39:00 Test Item Value Reference Range Interpretation Comments ETHANOL (BEILIANA) (test code = 400) < mg/dL <=10 SCREEN, [id number] 12:36:00 Test Item Value Reference Range Interpretation Comments TEST URINE (MADIE) (test Negative code = 583) POCT-GLUCOSE [id number] 12:34:00 Test Item Value Reference Range Interpretation Comments POC-GLUCOSE METER 189 mg/dL 70-110 H TESTED AT [facility] 6720 (MADIE) (test code = [facility] 1538) [address] HIV-1 ANTIGEN WITH HIV-1/2 [id number] 11:58:00 Test Item Value Reference Range Interpretation Comments HIV-1 ANTIGEN WITH HIV 1\\T\\2 Nonreactive Nonreactive ANTIBODY (2) (MADIE) (test code = 2586) TROPONIN [id number] 09:44:00 Test Item Value Reference Range Interpretation [...] H (test code = 380) CREATINE KINASE-MB (CHANDNIAKER) (test 5.6 ng/mL 0.0-6.6 code = 750) CREATINE KINASE-MB INDEX (CHANDNIAKER) 1.9 % (test code = 395) Effective 05/08/2014: CK-MB Reference Range ChangeNew: 0.0-6.6 Previous: 0.0-4.9CK-MB Reference Range:<6.7 Normal6.7-10.0 Borderline>10.0 AbnormalACETAMINOPHEN [id number] 08:31:00 Test Item Value Reference Range Interpretation Comments ACETAMINOPHEN LEVEL (BEAKER) (test < ug/mL 10.0-30.0 L code = 344) TROPONIN [id number] 05:53:00 Test Item Value Reference Range Interpretation [...] acute neurological disease, and persistent tachyarrhythmia.BASIC METABOLIC [id number] 05:53:00 Test Item Value Reference Range Interpretation [...] TO CALCULA TE ESTIMATED GFR. Specimen slightly pjdwzlmKWADLWOLYU7358-44-56 05:52:00 Test Item Value Reference Range Interpretation Comments PHOSPHORUS (BEAKER) (test code = 5.7 mg/dL 2.3-4.7 H 604) HEPATIC FUNCTION [id number] 05:52:00 Test Item Value Reference Range Interpretation [...] Specimen slightly ictericCREATINE KINASE (CK), TOTAL AND [id number] 05:52:00 Test Item Value Reference Range Interpretation Comments CREATINE KINASE TOTAL (BEAKER) 341 U/L 29-200 H (test code = 380) CREATINE KINASE-MB (BEAKER) (test 5.4 ng/mL 0.0-6.6 code = 750) CREATINE KINASE-MB INDEX (BEAKER) 1.6 % (test code = 395) Effective 05/08/2014: CK-MB Reference Range ChangeNew: 0.0-6.6 Previous: 0.0-4.9CK-MB Reference Range:<6.7 Normal6.7-10.0 Borderline>10.0 AbnormalCBC W/PLT COUNT & AUTO [id number] 05:48:00 Test Item Value Reference Range Interpretation [...] K/ L 0.00-0.20 (test code = 417) 0.32MXNRVQBJSL6395-16-97 05:09:00 Test Item Value Reference Range Interpretation Comments FIBRINOGEN LEVEL (BEAKER) (test 427 mg/dl 225-434 code = 658) [id number] 05:09:00 Test Item Value Reference Range Interpretation Comments PARTIAL THROMBOPLASTIN TIME 36.2 seconds 22.5-36.0 H (BEAKER) (test code = 760) PROTHROMBIN TIME/[id number] 05:08:00 Test Item Value Reference Range Interpretation Comments PROTIME (BEAKER) (test code = 22.8 seconds 11.7-14.7 H 759) INR (BEAKER) (test code = 370) 2.0 <=5.9 RECOMMENDED COUMADIN/WARFARIN INR THERAPY RANGESSTANDARD DOSE: 2.0 - 3.0 Includes: PROPHYLAXIS forvenous thrombosis, systemic embolization; TREATMENT for venous thrombosis and/or pulmonary embolus.HIGH RISK: Target INR is 2.5-3.5 for patients with mechanical heart valves.HEPATITIS PANEL, [id number] 03:40:00 Test Item Value Reference Range Interpretation Comments HEPATITIS A IGM ANTIBODY (BEAKER) Nonreactive Nonreactive (test code = 498) HEPATITIS B CORE IGM ANTIBODY Nonreactive Nonreactive (BEAKER) (test code = 645) HEPATITIS C ANTIBODY (BEAKER) Nonreactive Nonreactive (test code = 367) HEPATITIS B SURFACE ANTIGEN (2) Nonreactive Nonreactive (BEAKER) (test code = 2585) CREATININE, RANDOM [id number] 03:18:00 Test Item Value Reference Range Interpretation Comments CREATININE URINE (BEAKER) (test 118.7 mg/dL code = 375) Reference Range: No NormalsSODIUM, RANDOM [id number] 03:18:00 Test Item Value Reference Range Interpretation Comments SODIUM URINE (BEAKER) (test code = 60 meq/L 243) Reference Range: No NormalsUREA NITROGEN, RANDOM [id number] 03:18:00 Test Item Value Reference Range Interpretation Comments UREA NITROGEN URINE (BEAKER) (test 303 mg/dL code = 538) Reference Range: No VdnymuvSPJLOHT0980-31-69 03:07:00 Test Item Value Reference Range Interpretation Comments AMMONIA (BEAKER) (test code = 348) 48 mol/L 18-72 B-PSMVA6001-23OCAPK9768-47-46 02:57:00 Test Item Value Reference Range Interpretation [...] within 95-100% range. URINALYSIS W/ REFLEX URINE [id number] 02:53:00 Test Item Value Reference Range Interpretation [...] = 514) SOURCE(BEAKER) (test code = 2795) [id number] 02:49:00 Test Item Value Reference Range Interpretation Comments PARTIAL THROMBOPLASTIN TIME 39.4 seconds 22.5-36.0 H (BEAKER) (test code = 760) PROTHROMBIN TIME/[id number] 02:48:00 Test Item Value Reference Range Interpretation Comments PROTIME (BEAKER) (test code = 22.0 seconds 11.7-14.7 H 759) INR (BEAKER) (test code = 370) 1.9 <=5.9 RECOMMENDED COUMADIN/WARFARIN INR THERAPY RANGESSTANDARD DOSE: 2.0 - 3.0 Includes: PROPHYLAXIS forvenous thrombosis, systemic embolization; TREATMENT for venous thrombosis and/or pulmonary embolus.HIGH RISK: Target INR is 2.5-3.5 for patients with mechanical heart valves.KOUMOLTJBW8543-12-08 02:48:00 Test Item Value Reference Range Interpretation Comments FIBRINOGEN LEVEL (BEAKER) (test 421 mg/dl 225-434 code = 658) BLOOD GAS, [id number] 02:43:00 Test Item Value Reference Range Interpretation [...] 21.0 % CBC W/PLT COUNT & AUTO RVVJPSXGYHTI0393-11-11 02:43:00 Test Item Value Reference Range Interpretation [...] code = 417) 0.00LACTIC ACID, VENOUS, WHOLE [id number] 02:35:00 Test Item Value Reference Range Interpretation Comments LACTATE BLOOD VENOUS (2) (BEAKER) 0.8 mmol/L 0.5-2.2 (test code = 2872) Effective 10/23/2015: Units/Reference Range ChangeNew: 0.5-2.2 mmol/L Previous: 5-20 mg/dLSpecimen slightly zktljyxPESPKGUEMDRT9693-79-09 11:32:0014.6[facility] JgdtortPURLGUOOYGZZ4784-08-53 11:32:0033[facility] UncqctcKPKKGGNUKYQO6917-80-17 11:32:008.3[facility] FkqqzgkLDPTHQVTAUGB0360-42-37 11:32:0081[facility] Vin PAMAVNIYAMSN5543-87-57 11:32:001.95[facility] CvlljevCZESSVRIOJKH4173-09-13 11:32:0055[facility] ZkeffnsERAAPFDMUTOP9260-39-69 11:32:0019[facility] [place] CBFTWFJNODYH9322-07-57 11:32:95565Avnfclty MohhcuoRLMFULZXWWUT2093-63-68 11:32:23489Xtoueefr NwcgyepISDTNEYEGSGI1714-80-27 11:32:004.6[facility] PQOBLAJTON7500-25-29 11:32:0030.4[facility] JljoxakAGAMKRNNCO3105-41-85 11:32:00 4.5[facility] BojozpyPENJRETZDK1342-39-80 11:32:0013.7[facility] HermannHEMATOLOGY 2016-07-30 11:32:002.6[facility] KxxqmaeCUALNISHPH9852-12-95 11:32:000.7[facility] SzhwfjdFDHDMXMZVT7327-09-55 11:32:000.7[facility] LlkdsmaTZCHRJKTVV6810-77-84 11:32:001.6[facility] WigyxbxLORBZTMFKH0537-72-16 11:32:000.2[facility] [place] RGRYWETLMN9007-10-19 11:32:0050.7[facility] CbbeoelWUSXHHNSUW7061-43-03 11:32:00 28.1[facility] GkinkdgKYYANBVYHW8149-53-22 11:32:003.39[facility]annHEMATOLOGY 2016-07-30 11:32:008.9[facility] EakuztvFAXQTEEWCZ3286-51-23 11:32:005.1[facility] CibysmlYIXTREBOZU0467-11-79 11:32:0011.3[facility] WdnifwnTTXPRULKWB3937-37-70 11:32:84287Fjtzrsoo HakmvncPPFLZXHQNU6837-51-01 11:32:0031.8[facility] Vin DOTXKOZUXM5281-20-60 11:32:0018.0[facility] HfhrlaxHSGKDLRSJM1670-70-66 11:32:00 83.0[facility] SyktkwyVJJZSJWFHL7191-31-08 11:32:00 Test Item Value Reference Range Interpretation Comments MCH (test code = MCH) 26.4 pg 27.0-31.0 [facility] DogazbuAAPBJNILNX8648-11-61 11:32:87247Weqokxnh HermannIMMUNOLOGY 2016-07-30 11:32:00Negative *NA*(07/30/16 5:32 AM)[facility] HermannIMMUNOLOGY 2016-07-29 11:05:00Negative *NA*(07/29/16 5:05 AM)[facility] HermannIMMUNOLOGY 2016-07-29 11:05:0092[facility] HermannCHEM XSCNQ6824-90-52 15:50:0025[facility] HermannCHEM XYDRE8547-65-45 15:50:0055[facility] HermannCHEM EMTXL1621-35-45 15:50:0023[facility] HermannCHEM RTYIS4814-21-29 15:50:26110Xwsliwwv HermannCHEM IIHYL0226-49-92 15:50:20193Dsswrmew HermannCHEM GWJDI2749-74-94 15:50:004.0 [facility] HermannCHEM KOHGF9017-75-90 15:50:87401Rkwqejgw HermannCHEM PANEL 2016-07-28 15:50:0013.0[facility] HermannCHEM RHJNC1497-83-80 15:50:007.7[facility] HermannCHEM RTBKE0087-98-80 15:50:002.49[facility] HuqbwapBWKEFHOUQI3673-87-02 15:50:00 Test Item Value Reference Range Interpretation Comments PT (test code = PT) 14.8 s 12.0-14.7 [facility] UbifpprNWUNYDFMAL7039-99-08 15:50:00 Test Item Value Reference Range Interpretation Comments PTT (test code = PTT) 40.8 s 22.9-35.8 [facility] RgtrhxxQZWTJPTAMA8634-11-75 15:50:001.14[facility] HermannIMMUNOLOGY 2016-07-28 15:50:0094[facility] UgussmvZOOQVLQKHS9401-88-59 10:35:001.7[facility] ZxcvgcsCXXPFTAQCW2942-03-32 10:35:002.7[facility] QbmlrisDBNHNGKHPL2303-16-72 10:35:000.1[facility] WnxrnqmKJFVKLZCWG5195-36-43 10:35:000.7[facility] XEUOJGKBZF1473-37-80 10:35:0051.3[facility] SelssccDVOAGWTRAJ6957-46-47 10:35:00 31.6[facility] DupbconHYENNDJLYN0067-63-83 10:35:0014.1[facility] HermannHEMATOLOGY 2016-07-28 10:35:002.6[facility] NxhyamwJXDADKQQQC2418-81-91 10:35:000.4[facility] PkcveogANPZPGDTER0084-88-40 10:35:0029.3[facility] IcawivgMIGIMUMMHW4680-11-01 10:35:009.2[facility] VpvyrshRSRYVYBLOQ3814-87-04 10:35:003.54[facility] [place] RAVSTVANRM3054-81-49 10:35:005.3[facility] KrcxodiWDGEMLPYLA9462-78-51 10:35:0087 [facility] PtsojfmAZLHYLOKLJ5544-91-69 10:35:0031.4[facility] HermannHEMATOLOGY 2016-07-28 10:35:0017.9[facility] TpyrmghSFYZNVLUCT1869-12-01 10:35:0010.9[facility] JwqnpetKMXVEHHTKL3926-71-01 10:35:00 Test Item Value Reference Range Interpretation Comments MCH (test code = MCH) 26.0 pg 27.0-31.0 [facility] XvkpiprEBIWQGSBPH6266-90-38 10:35:0082.8[facility] HermannIMMUNOLOGY 2016-07-28 10:35:00Negative *NA*(07/28/16 4:35 AM)[facility] HermannCARDIAC ENZYMES 2016-07-27 10:22:60098Yzjioeam HermannCHEM UINVB7741-63-86 10:22:007.8[facility] HermannCHEM ZKJWM0346-32-09 10:22:0021[facility] HermannCHEM KSPWO4249-78-07 10:22:84541Nyrnaxjt HermannCHEM IWUKK5655-45-23 10:22:003.8[facility] HermannCHEM DKECL7141-62-82 10:22:48704Juhomwsa HermannCHEM JRUJI8319-21-47 10:22:000.4 [facility] HermannCHEM TIXUJ8201-56-34 10:22:0074[facility] HermannCHEM PANEL 2016-07-27 10:22:0019[facility] HermannCHEM BILCB3828-64-91 10:22:005.2[facility] HermannCHEM QHCPL6505-34-40 10:22:79054Enfcnfnn HermannCHEM NKELI1615-57-27 10:22:44545Mtyxqkom HermannCHEM LOZUJ9533-18-42 10:22:001.8[facility] HermannCHEM BOMGY9753-06-87 10:22:0054[facility] HermannCHEM ZTEAW9374-85-48 10:22:92794 [facility] HermannCHEM NMZJT9469-93-98 10:22:003.11[facility] HermannCHEM PANEL 2016-07-27 10:22:0017[facility] HermannCHEM NWTPZ3553-69-70 10:22:0016.8[facility] HermannCHEM JJMYH3056-87-30 10:22:003.4[facility] HermannCHEM THAUF7485-75-37 10:22:000.5[facility] HermannCHEM ZHXSX5250-92-57 10:22:002.0[facility] HermannCHEM OZORT1732-70-23 10:22:003.7[facility] AbigtlvFZDSDVRWJO8571-82-15 10:22:0017.7 [facility] HbtgolqTVURNNJMHH9510-41-63 10:22:0032.9[facility] HermannHEMATOLOGY 2016-07-27 10:22:0025.4[facility] CqptkpzAFOAUQQPOA3690-78-16 10:22:00 Test Item Value Reference Range Interpretation Comments MCH (test code = MCH) 26.4 pg 27.0-31.0 [facility] DlcybzbGFASQANJTL6504-27-94 10:22:0080.3[facility] HermannHEMATOLOGY 2016-07-27 10:22:0011.4[facility] VkhgplvBKIKAXZLSC8976-96-52 10:22:0074[facility] ZlekthnRIHOFMCZAE5832-34-17 10:22:003.16[facility] HitlbilPJSYXELKEX6098-78-29 10:22:005.3[facility] BbtqyswDVNUGGHVNP9804-53-24 10:22:008.4[facility] Vin ZVJYUSTMDZ6551-97-00 10:22:0014.5[facility] GaeknpzXFCEILTBOL2748-83-60 10:22:00 29.8[facility] YpgupojWIDWNXJLRR4635-07-02 10:22:000.1[facility] HermannHEMATOLOGY 2016-07-27 10:22:000.8[facility] VygzqsfSPYVFKAIDO1852-49-09 10:22:002.9[facility] JqnpksoVNQYGGSSIH4244-87-94 10:22:001.6[facility] PfiaqhjBJZXAFOPQD8524-47-05 10:22:000.4[facility] ZryxhjnQUYEMJNRSH6838-32-22 10:22:001.2[facility] RMJNXRAOTH0968-81-95 10:22:0054.1[facility] HermannSPECIAL KBYGTNYUI1339-28-55 10:22:008.9[facility] HermannCARDIAC ZLBCDQZ6415-11-41 17:40:53274Rmxfdayo [place] GHRVNWJWAL0865-49-31 17:40:00Positive *ABN*(07/26/16 11:40 AM)[facility] MRBKKZTNCI3518-90-30 17:40:00<0.2[facility] ClxqngwZMKAQPIGIZ9578-07-22 17:40:00<0.2[facility] HdvaolpWCQHFDWOTU1145-47-78 17:40:00<0.2[facility] SdmrvvnTONMMMEVKE2953-01-72 17:40:00<0.2[facility] ZbcqictCQYJQHPLBB4466-57-78 17:40:00Negative (07/26/16 11:40 AM)[facility] FtgfysnITAZMXYQHE7413-50-68 17:40:00 1:40 *ABN*(07/26/16 11:40 AM)[facility] HermannURINE FRMB7355-43-93 17:40:0021 [facility] UuwkzovWZBSLTAUCO4536-88-00 14:00:001.11[facility] HermannHEMATOLOGY 2016-07-26 14:00:00 Test Item Value Reference Range Interpretation Comments PT (test code = PT) 14.5 s 12.0-14.7 [facility] FadlkjdWIYJJMFVLD5689-15-56 14:00:00Negative *NA*(07/26/16 8:00 AM) [facility] DxjgzrgWYTBQWCHQJ3752-33-77 14:00:00Negative *NA*(07/26/16 8:00 AM) [facility] KwzfpegQIZKQCNFTK3587-44-61 14:00:00Negative *NA*(07/26/16 8:00 AM) [facility] HtbnwvgYPANITNKVQ5438-98-39 14:00:00Negative *NA*(07/26/16 8:00 AM) [facility] HermannCHEM ICALX0981-72-42 10:42:0017[facility] HermannCHEM PANEL 2016-07-26 10:42:128016Txhfbexj HermannCHEM METSL7691-65-19 10:42:000.5[facility] HermannCHEM BFALG3095-19-11 10:42:000.3[facility] HermannCHEM VXLGH3897-58-42 10:42:0079[facility] HermannCHEM PIXBO8901-42-12 10:42:29379Ylursshg HermannCHEM JSAWJ6245-40-39 10:42:005.5[facility] HermannCHEM BWMVI5281-60-14 10:42:003.7 [facility] HermannCHEM TEAGT8842-31-37 10:42:001.8[facility] HermannCHEM PANEL 2016-07-26 10:42:002.1[facility] RueqjyxAXFQTQGKYC9613-61-62 10:42:00Present *ABN*(07/26/16 4:42 AM)[facility] NwaiavqDLRWPFJHSC7352-44-84 10:42:001+ *ABN*(07/26/16 4:42 AM)[facility] MmhxqubSIIAUAFITT0286-27-04 10:42:000.1[facility] WjvzzimLYELAYZBUB7561-00-13 10:42:00Moderate *ABN*(07/26/16 4:42 AM)[facility] CerhcolKQHNSRNBDI5808-40-22 10:42:0042[facility] HermannURINE AND YNKTF9611-43-66 16:34:001[facility]annURINE AND WYQWU8182-04-46 16:34:004[facility] [place] URINE AND UBWGH4582-59-47 16:34:00Negative (07/25/16 10:34 AM)[facility] [place] URINE AND PFIAQ2167-14-05 16:34:00Negative (07/25/16 10:34 AM)[facility] URINE AND BHKBH1266-78-21 16:34:002[facility]annURINE AND VUKAL5518-32-34 16:34:006[facility]annURINE AND QWFHY5519-53-36 16:34:002.0[facility] URINE AND XHHTZ1311-67-43 16:34:00Negative (07/25/16 10:34 AM)[facility] [place] URINE AND YFVKU4221-52-93 16:34:00Negative *NA*(07/25/16 10:34 AM)[facility] URINE AND EMXVX7237-80-59 16:34:001.012[facility]annURINE AND CYRMO5595-46-64 16:34:005.5[facility]annUR[facility] AND OXZXG4231-06-75 16:34:00Slight *ABN*(07/25/16 10:34 AM)[facility]annUR[facility] AND VJWSG3705-34-02 16:34:00Dark Yellow *NA*(07/25/16 10:34 AM)[facility]ann[facility] AND UKLQF9421-55-44 16:34:009 [facility]annURINE VBDO4949-24-04 16:34:0030[facility]annURINE CHEM 2016-07-25 16:34:003.1[facility]annURINE VGLN4659-64-22 16:34:97503.9[facility]annURINE YJQT4342-60-33 16:34:05880.00[facility] HermannCHEM UKCKT3737-33-21 08:55:002.0[facility] HermannCHEM VJYBN2813-71-04 08:55:005.2[facility] [place] CARDIAC FPNVDRT6643-93-49 17:29:000.28[facility] HermannCARDIAC VSVKNTE3725-40-37 17:29:634561Smnhiari HermannCARDIAC VCEKDOX0460-93-17 17:29:000.144[facility] HermannCARDIAC WTUIRJB4726-12-74 17:29:000.2[facility] HermannCARDIAC ENZYMES 2016-07-24 17:29:006.3[facility] HermannCARDIAC SVAQDAX1582-64-92 11:20:000.38 [facility]annCARDIAC GCEWROS3468-60-21 11:20:000.173[facility] HermannCARDIAC PNPHMLE6908-04-35 11:20:000.2[facility] HermannCARDIAC PAKIYSZ7296-05-88 11:20:00 5.6[facility] HermannCHEM RVFPA8041-84-77 11:20:005.5[facility] HermannCARDIAC DTILYBF1507-59-63 06:18:01730Vddschng HermannCARDIAC TZTRERL2681-03-61 04:59:27 0.57[facility] HermannCARDIAC VCPDHVY4477-86-47 10:22:64490Aptigjct HermannCHEM RBUFE2107-94-86 10:22:002.1[facility] HermannCHEM DKGZP3088-18-24 10:22:72138 [facility] HermannCHEM CGVFW3040-89-73 10:22:0041[facility] HermannCHEM PANEL 2016-06-15 10:22:002.00[facility] HermannCHEM RVERJ6750-68-60 10:22:009.0[facility] HermannCHEM HPRSN7654-49-20 10:22:50823Xaulauby HermannCHEM RDQRQ9626-28-61 10:22:0033[facility] HermannCHEM GWPEZ8467-56-35 10:22:10277Nmbdcziv HermannCHEM CNJDK1354-12-74 10:22:004.0[facility] HermannCHEM PFBHE1406-45-16 10:22:0032 [facility] HermannCHEM SWQEA6143-11-18 10:22:0013.0[facility] HermannCHEM PANEL 2016-06-15 10:22:004.6[facility] ZrzquabAPFPUOJPXR5379-66-55 10:22:003.68[facility] QflhdipKKQCJQVJXK5653-49-69 10:22:009.9[facility] BcatqahKRORIBTWIP9843-27-06 10:22:00 Test Item Value Reference Range Interpretation Comments MCH (test code = MCH) 26.8 pg 27.0-31.0 [facility] PosgbxtVNKOBLXNHG9928-14-59 10:22:0034.2[facility] HermannHEMATOLOGY 2016-06-15 10:22:0078.3[facility] CvregwoACTEZZELOC8461-20-82 10:22:0028.8[facility] WsivtcyXZSEDUCXYH4396-48-38 10:22:25182Bufyhwwg MondfwmMSSCWTWFQA0056-55-19 10:22:009.5[facility] QpveylbPATWUBYUJT0423-17-10 10:22:0015.3[facility] [place] VSQDCTYGDA4449-66-56 10:22:005.6[facility] BhxtscnTQXYQDJFPZ8686-34-08 10:22:000.5 [facility] AscwghvDXNAKVJLNR6536-61-53 10:22:001+ *ABN*(06/15/16 4:22 AM)[facility] JgumibbAXMDGYSMPZ6585-59-32 10:22:000.1[facility] UkpjdrhPJWJIFMIHE5092-44-99 10:22:0033.5[facility] RqosiriEDABHXTBXP1754-15-17 10:22:0047.6[facility] Vin RIVFAHYPYK2294-11-82 10:22:008.4[facility] LsinbbaAIUCCDJBLH9535-09-85 10:22:009.4 [facility] XuvanstTAMQCESHWC2772-78-49 10:22:002.6[facility]annHEMATOLOGY 2016-06-15 10:22:001.9[facility] YpeobhtSPQHTUBOSN8483-63-75 10:22:001.1[facility] DcdlgeqDXVPACLTSC5823-34-90 10:22:000.5[facility] HermannCHEM GKCBQ0697-71-80 11:03:004.8[facility]annCHEM NRJYX4866-76-31 11:03:002.0[facility]annCHEM ILZNV6386-53-21 11:03:0032[facility]annCHEM NBGQB7390-47-53 11:03:65916 [facility]annCHE[facility] SLNZT0425-70-75 11:03:004.4[facility]annCHEM PANEL 2016-06-14 11:03:0037[facility]annCHEM AXHEJ9700-53-37 11:03:57451Otlpkcjw HermannCHEM DAASO5130-15-42 11:03:002.00[facility]annCHEM YWDUO8602-28-10 11:03:71542Oqzfnefc HermannCHEM ZEBNQ9592-39-01 11:03:008.7[facility]annCHEM LHPRT6772-12-66 11:03:0032[facility]annCHEM OXBIY0070-43-22 11:03:0013.4 [facility] ZfyvvllDJANGSDIAE5612-28-10 11:03:0010.3[facility]annHEMATOLOGY 2016-06-14 11:03:000.1[facility] VjwzrrwOXMGAZXBYU8079-56-59 11:03:000.5[facility] UnepqrcBYMHZGDRXX1758-32-77 11:03:000.5[facility] AdprjkwFXQYWCKZEQ3754-43-79 11:03:002.1[facility] ZxrnksvPKYRZESDAJ7704-14-99 11:03:001.2[facility] MHDYPGWNWW0861-49-98 11:03:001.9[facility] HnddxnqBNABCQIJXI6628-46-06 11:03:00 42.5[facility] IiodtajBIDGHJIYMI3495-14-07 11:03:0037.0[facility]annHEMATOLOGY 2016-06-14 11:03:009.0[facility] WxfqrlnYTYDVBVMMR9457-00-51 11:03:009.8[facility] OfszeurNOZWSMCDFF8725-54-59 11:03:005.0[facility] JeuwcrjBMGGZDFVVZ1707-43-74 11:03:003.57[facility] QumcvypBYHRJFCEFY6493-75-63 11:03:009.4[facility] NJGBEWODNE4102-45-25 11:03:0028.5[facility] IeyukqiXPFCVJTQAD7298-53-08 11:03:00 183[facility] YanrjteAKKCQYHCIC0308-07-61 11:03:0079.9[facility]annHEMATOLOGY 2016-06-14 11:03:00 Test Item Value Reference Range Interpretation Comments MCH (test code = MCH) 26.3 pg 27.0-31.0 [facility] VyluqlsTRTKNMZWSJ4625-03-04 11:03:0033.0[facility]annHEMATOLOGY 2016-06-14 11:03:0015.9[facility] HermannURINE ZYCX9944-03-63 10:26:006.9[facility]annURINE VMYV3886-60-19 10:26:0019.30[facility]annURINE YDCX6806-75-99 10:26:82285.1[facility] GsnihmbPZPTMPWSLP7160-27-27 09:20:009.7[facility] VUBPDBNHKT7038-78-95 09:20:89567Zrxqiozt JpjryptEJIMTQDXBD6101-20-29 09:20:00 15.9[facility] SyscqynSTZIUQFQBP5275-99-52 09:20:0079.3[facility]annHEMATOLOGY 2016-06-13 09:20:0033.0[facility] RjdxnsbTSTAZXOTHX9669-73-35 09:20:00 Test Item Value Reference Range Interpretation Comments MCH (test code = MCH) 26.2 pg 27.0-31.0 [facility] FttaofzIOVKQSUZSG9902-30-06 09:20:0029.4[facility]annHEMATOLOGY 2016-06-13 09:20:009.7[facility] QxyukbaYTNVEUCTBW0538-38-95 09:20:003.70[facility] GfwusrcZZECOMTPGM0466-78-74 09:20:005.7[facility] DmlnqcpPNTOTABYTU3174-07-53 09:20:000.1[facility] MbyqlqnVXOGWVAWCG3757-00-26 09:20:002.2[facility] Vin GZVBJZOKKJ9745-16-12 09:20:000.5[facility] DxsdpbnXFLPSXKGIR6161-54-62 09:20:000.5 [facility] GzplhfiEYUGQQNZYQ9196-78-47 09:20:001.1[facility]annHEMATOLOGY 2016-06-13 09:20:002.3[facility] GcnovocCNGWVOZNQP1821-28-11 09:20:009.5[facility] EzxnhsiRINDFYWSDL6580-38-49 09:20:009.0[facility] KjgpzasEBKBZYDQFX9391-13-46 09:20:0038.9[facility] NymallbTFXNSNLRPR7938-45-02 09:20:0041.5[facility] Vin CHEM BXGQI8598-79-57 06:34:001.7[facility] HermannCHEM COXEN3467-38-15 06:34:004.2 [facility] HlirwsyVXRMFWLABVMD2720-61-53 06:34:0014.3[facility] HermannELECTROLYTES 2016-06-13 06:34:0041[facility] NqbrsgqHEEUMPDWCHNN7556-89-59 06:34:89520Mxvdavad HfjinmhJNSMABLGJDJW8131-79-87 06:34:008.5[facility] HoletjyRNEUQVTQZDBY0754-27-37 06:34:0032[facility] ReyixtpCTTDCCZKYRKR7098-32-97 06:34:56101Lltyvsjh [place] XRRKVZQJRHNS9872-25-92 06:34:0037[facility] DsqndbpLRIDHQXKGYSJ5789-14-40 06:34:00 1.63[facility] SuymfieWLFLYZHDKJAV0527-68-16 06:34:004.3[facility] [place] OQOYSPKKJOEC0775-59-02 06:34:46810Dbqhaqkc HermannCHEM VGMIZ3407-34-21 16:21:00 48.0[facility] EhzbbukUISPGRFXTB0604-09-95 14:56:001:40 *ABN*(06/11/16 8:56 AM) [facility] TsglcybDLTOQXIYHN7124-97-01 14:56:00Negative *NA*(06/11/16 8:56 AM) [facility] TqjenxpEYNKVKFXXN0913-89-70 14:56:00Negative *NA*(06/11/16 8:56 AM) [facility] AcwdccxCHSBSXQNMA5733-54-54 14:56:00Negative *NA*(06/11/16 8:56 AM) [facility] ZlowyprKMYNGAABKS2811-92-95 14:56:00Negative *NA*(06/11/16 8:56 AM) [facility] YwiyooxRAAYAHOKJT0086-73-10 14:56:00Negative *NA*(06/11/16 8:56 AM) [facility] OnjftthTMEEFTJLGG2923-34-35 14:56:00Positive *ABN*(06/11/16 8:56 AM) [facility]annCHEM ZEUKH8553-71-99 10:42:000.1[facility] HermannCHEM PANEL 2016-06-11 10:42:005.2[facility] HermannCHEM SIHTW7850-85-54 10:42:001.6[facility] HermannCHEM RXKKZ4216-18-02 10:42:0020[facility]annCHEM GKEBE3020-80-13 10:42:003.6[facility]annCHEM VCJIL5750-47-41 10:42:000.4[facility]annCHEM FPOLE9088-48-71 10:42:0074[facility]annCHEM PJZSZ4389-87-91 10:42:0014 [facility]annCHEM NFGWA9885-31-74 10:42:0013[facility]annHEMATOLOGY 2016-06-11 10:42:001.06[facility] YzobxwqKLUQXQYZFQ5671-20-00 10:42:00 Test Item Value Reference Range Interpretation Comments PT (test code = PT) 14.0 s 12.0-14.7 [facility] SqdddynTEYBDFLUQM9357-68-44 10:42:00 Test Item Value Reference Range Interpretation Comments PTT (test code = PTT) 36.4 s 22.9-35.8 [facility] HermannSPECIAL TKQCREBEB2816-53-37 10:42:0010.5[facility] HermannCARDIAC LBQLWXU8571-51-39 02:08:001.8[facility]annCARDIAC MTQIVFF4901-92-00 02:08:00 2.9[facility]annCARDIAC JXROUGH3440-19-36 02:08:000.061[facility] CARDIAC AJIIIJR1373-11-80 02:08:82073Cureyxcd HermannCARDIAC JJHNSQU6482-36-06 02:08:00<0.02[facility]annCHEM TEEVU6069-08-00 02:08:000.2[facility] CHEM UGVTP9010-18-11 02:08:000.1[facility]annCHEM LKPDR7988-86-84 02:08:000.1 [facility]annCHEM PPCLW6863-23-53 02:08:005.7[facility]annCHEM PANEL 2016-06-11 02:08:000.5[facility]annCHEM QTRSG4193-25-17 02:08:001.8[facility]annCHEM HRUUQ7677-59-75 02:08:003.9[facility]annCHEM ZTTDL0341-42-46 02:08:0099[facility]annCHEM YWYQD5744-31-97 02:08:0021[facility]annCHEM PJOPG4461-36-32 02:08:0017[facility] HermannDRUG MXGIAN4996-25-72 02:08:00See Note *NA*(06/10/16 8:08 PM)[facility]annDRUG CLGWWQ1995-76-90 02:08:00Negative *NA*(06/10/16 8:08 PM)[facility]annDRUG AHHPRH0771-32-57 02:08:00Negative *NA*(06/10/16 8:08 PM)[facility]annDR[facility] ZGPPSB0916-42-24 02:08:00Negative *NA*(06/10/16 8:08 PM)[facility]annDR[facility] OIDFMD8916-51-87 02:08:00Negative *NA*(06/10/16 8:08 PM)[facility]annDR[facility] IRFCOW4164-49-15 02:08:00Negative *NA*(06/10/16 8:08 PM)[facility]annDR[facility] PJVSVL1419-92-06 02:08:00Negative *NA*(06/10/16 8:08 PM)[facility]annDR[facility] OUEBPP1379-92-35 02:08:00Negative *NA*(06/10/16 8:08 PM)[facility]annDR[facility] OZXTEC4946-55-28 02:08:00Negative *NA*(06/10/16 8:08 PM)[facility]annDR[facility] YAGDNP7223-17-60 02:08:00Negative *NA*(06/10/16 8:08 PM)[facility] LwjhvaqHVCPYD2556-14-68 02:08:0075[facility] IjbvjlsYCKCGM6027-34-41 02:08:0027[facility] KmqiivqMJKAZC2696-53-54 02:08:53286 [facility] GesvcrwULHYRO7262-03-11 02:08:52189Rcciiexp NkbxdkmUSLATZ0321-62-94 02:08:004.29[facility] BejlgboLUMYZI2181-44-75 02:08:0031[facility]annURINE AND XTDWI7563-32-57 02:08:006.0[facility]UR[facility] AND PEGWO7102-16-62 02:08:00 Negative (06/10/16 8:08 PM)[facility] AND IEEUA8092-56-35 02:08:00 Trace *ABN*(06/10/16 8:08 PM)[facility] AND ZUDKP9339-65-02 02:08:00 Negative *NA*(06/10/16 8:08 PM)[facility] AND PSNNJ1512-00-58 02:08:004[facility]UR[facility] AND SULMJ0856-45-57 02:08:005[facility] URINE AND XCXZA8953-04-12 02:08:00Small *ABN*(06/10/16 8:08 PM)[facility] URINE AND OUUUX8233-34-31 02:08:001[facility]annUR[facility] AND ULACW5414-44-81 02:08:001.009[facility] AND HFHYA8518-77-34 02:08:00Yellow *NA*(06/10/16 8:08 PM)[facility] AND OPVMY9604-10-75 02:08:00Clear (06/10/16 8:08 PM)[facility]annURINE OSDZ3652-45-44 02:08:00Negative (06/10/16 8:08 PM)[facility]INE ZJJL4496-67-87 02:08:78987.4[facility]annURINE DJFN7722-27-32 02:08:005.4[facility]annURINE RTFT1683-00-41 02:08:0069.80[facility] HermannCARDIAC LKVDPEN6427-03-68 16:53:999694Wiijgdrx HermannCARDIAC ZDRLIBA8116-90-97 16:53:00<0.02[facility] HermannCHEM PANEL 2014-06-26 13:02:000.9[facility] OszknxiKJMLMLQKTO7723-46-66 12:29:4410[facility] FluhrmeUSMDLYFIWHUEN4052-54-01 11:21:271[facility]annCHEM TGHEV5413-62-84 11:21:11022Xxjtrnbj HermannCHEM FMMNQ8033-34-08 11:21:003.4[facility]annCHEM NVTSW3541-12-22 11:21:0011[facility]annCHEM LQARJ9255-08-39 11:21:000.8 [facility]annCHEM DEJPS0375-32-34 11:21:90654Ynmqproc HermannCHEM PANEL 2014-06-26 11:21:0094[facility]annCHEM SBTZO5069-15-71 11:21:009.1[facility]annCHEM SOLMV2033-34-41 11:21:0024[facility]annCHEM OCTDR3272-23-07 11:21:000.9[facility]annCHEM ITLBI0772-18-42 11:21:003.4[facility]annCHEM PUNRH6854-12-88 11:21:0014[facility]annCHEM CXHEF1523-96-03 11:21:0019.4 [facility]annCHEM KLNDJ1339-20-64 11:21:0081[facility] HermannHEMATOLOGY 2014-06-26 11:21:000.0[facility] ZsnwlaqRVXVQLBABX9811-43-71 11:21:001+ *ABN*(06/26/14 5:21 AM)[facility] VikmdoiRESOIAQEJJ3395-12-99 11:21:000.6[facility] DradaxjESDIHUGHRD2909-31-48 11:21:000.1[facility] KqldvljBGWSVCAKXF0045-37-32 11:21:002.5[facility] UxivnblUXYBAJHENZ9830-98-14 11:21:0063.3[facility] GLIHFOYNBC6430-71-23 11:21:005.6[facility] AozsdenRRPKIDBIGF8907-32-47 11:21:000.0 [facility] SgenoduOEFHSGMPZQ8913-43-33 11:21:000.9[facility] HermannHEMATOLOGY 2014-06-26 11:21:007.0[facility] OjzujbfPVXJNTKMZJ5744-43-75 11:21:0028.8[facility] JmfmszgSQAZTAEEXX0451-34-20 11:21:008.8[facility] SbwetbtYAGUPABDHB4555-26-64 11:21:005.19[facility] IxujsmiMOHVZSFCJQ1983-26-31 11:21:0014.4[facility] WRXKJVOGDW5999-12-74 11:21:0043.1[facility] HmdlgecMSAZHVQXQA9034-40-82 11:21:00 83.1[facility] XkqhvqpPEKZXFEJOB5819-84-18 11:21:00 Test Item Value Reference Range Interpretation Comments MCH (test code = MCH) 27.8 pg 27.0-31.0 [facility] XezulxaUCBVVWJUIO0305-83-29 11:21:0013.1[facility] HermannHEMATOLOGY 2014-06-26 11:21:0033.5[facility] EajbetkOJMPMFBEYC9582-63-66 11:21:78978Ygyygbbq QpqmpdnECODWRAGGZ4606-76-04 11:21:0010.4[facility] HermannCHEM PUYVY0335-82-86 11:21:003.2[facility] HermannCHEM PNAPY4716-25-38 11:21:006.6[facility]annCHEM PXFLO3119-80-15 11:21:000.6[facility] HermannCHEM LFPMS0055-31-43 11:21:0059 [facility]annCHEM QSKZV8168-60-05 11:21:0011[facility] HermannCHEM PANEL 2014-06-26 11:21:0017[facility] HermannCHEM XDKVD6163-02-74 11:21:0099[facility] EbayhmqBBXKIUHTZN4344-12-35 04:48:55Performed (04/14/2013 23:48:55)[facility] IidqscwXSKRCDQPFE5559-20-10 04:48:55Negative *NA*(04/14/2013 23:48:55)[facility] MwgbyosAYHFATIEBG0573-27-89 04:48:55Trace *ABN*(04/14/2013 23:48:55)[facility] FipxemeUURFBZZCFO5224-21-70 04:48:55Negative (04/14/2013 23:48:55)[facility] WaofiuyUFFTQDCJGZ1191-86-34 04:48:550.2[facility] AhtrwvpXDAFAOBAVI0667-07-18 04:48:55Negative (04/14/2013 23:48:55)[facility] NlstpvwUBOUNKAYQH8854-91-18 04:48:55Negative (04/14/2013 23:48:55)[facility] NyohvppNYSIRNWIFO7447-79-31 04:48:55Clear (04/14/2013 23:48:55)[facility] DlxeegmOQVHGQPYIZ9174-09-57 04:48:55 Yellow *NA*(04/14/2013 23:48:55)[facility] FfqdvxjBDBUFILMDP5282-77-78 04:48:55 Test Item Value Reference Range Interpretation Comments UA pH (test code = UA pH) 7.0 1 5.0-8.0 N [facility] IpugwekRENBULWNWT2845-28-39 04:48:55 Test Item Value Reference Range Interpretation Comments UA Spec Grav (test code = UA Spec 1.025 1 N Grav) [facility] BwxfdbkOOERMTCDOJ3766-23-67 04:48:55Trace *ABN*(04/14/2013 23:48:55) [facility] WzlvgxuQWXYRXTBF7938-54-98 04:28:00Negative *NA*(04/14/2013 23:28:00) [facility] KvbtubiQYGXFCGRL8440-09-30 04:28:87551Rwtawjcn HermannCHEMISTRY 2013-04-15 04:28:004.1[facility] CqkumdcKOQGYEUQY5080-74-50 04:28:0010.5[facility] SectgmuBOWLSFGOF2292-49-00 04:28:006[facility] LzksxqkEAQZIRPEZ0379-25-92 04:28:00 0.7[facility] GujtatuYPUHZUKIG5577-06-79 04:28:79261Apyyxqqp HermannCHEMISTRY 2013-04-15 04:28:002.9[facility] ZrxfcfoISOWDAKHS7853-79-05 04:28:0020[facility] CkumwdaPPLCAPCLH8382-08-61 04:28:000.5[facility] EmhyujqYMMSOBKDI7102-96-13 04:28:0089[facility] MrklwaaMOSAYAQXS8914-29-52 04:28:0011[facility] LFFRWRKPL8186-79-32 04:28:000.5[facility] TdmncvhLXMGVYMCG3617-32-40 04:28:003 [facility] WhpfxzwEZYNIIJPT9125-84-65 04:28:09260Qexfhtry HermannCHEMISTRY 2013-04-15 04:28:007.0[facility] FbilxdxDQWDBTOXL7825-91-62 04:28:008.7[facility] TpsrnrfYVJABJQOX0046-66-38 04:28:0029[facility] NyzyviyFMMMSMRWM4558-27-92 04:28:42117Udgtsadv DdyehuiDYCDJGBLH0277-93-85 04:28:003.5[facility] ULHRRZBYJ1767-60-14 04:28:89966Dutdyzom SynipzsVDOUNRUTBR9107-28-80 04:28:00 Test Item Value Reference Range Interpretation Comments PROTIME (test code = PROTIME) 12.1 s 12.0-14.7 N [facility] QpmyqfcRXHVTBLUCO1497-45-90 04:28:00 Test Item Value Reference Range Interpretation Comments aPTT (test code = aPTT) 39.0 s 22.9-35.8 H [facility] BajwfqdFDHHXJLTII1213-49-22 04:28:000.90[facility] HermannHEMATOLOGY 2013-04-15 04:28:00 Test Item Value Reference Range Interpretation Comments MCH (test code = MCH) 29.4 pg 27.0-31.0 N [facility] LsazvniKJXUEIKMFL1888-68-44 04:28:0086.1[facility] HermannHEMATOLOGY 2013-04-15 04:28:0029.4[facility] OuzkxcxEWIFIVNESD4264-79-75 04:28:0014.0[facility] SxrsyhtQLQIZMQIQC4229-10-50 04:28:006.2[facility] PcajchnDLRMDDJFJL9011-70-84 04:28:05936Yuxhukoq MozseziAMFMZIPRLG3124-58-54 04:28:0034.1[facility] WWZZYDYGVT1136-53-43 04:28:003.41[facility] OlbynrmQALHTNMOHJ8225-06-96 04:28:00 10.0[facility] LpluqgjQMHYUCWKSI3601-15-80 04:28:0010.1[facility] HermannHEMATOLOGY 2013-04-15 04:28:004.4[facility] DgxhqdfGTHINDAEAI7202-11-54 04:28:000.7[facility] VpzqryuKEWCCZYIET0832-10-29 04:28:0070.7[facility] KnvblffOBLAQWVTQP7193-74-33 04:28:000.3[facility] KrfjkirNSPGLVFHCB0037-11-79 04:28:001.2[facility] WTLJENHUFU8791-49-27 04:28:004.5[facility] EifiwumVHXVYYXGYA3878-79-56 04:28:004.1 [facility] UjdcouhSPUGSBHXTS5151-23-66 04:28:0020.0[facility] HermannHEMATOLOGY 2013-04-15 04:28:000.0[facility] PtcoqskZOOFCLPGOR4013-70-63 04:28:000.3[facility] HermannBEDSIDE GLUCOSE ERKLCPU5831-43-56 01:12:10517Xkcqpntv HermannURINALYSIS 2012-03-14 23:40:00Trace *ABN*(03/14/2012 18:40:00)[facility] HermannURINALYSIS 2012-03-14 23:40:00 Test Item Value Reference Range Interpretation Comments UA pH (test code = UA pH) 6.0 1 5.0-8.0 N [facility] LhzlkqyYMKJPNXTXQ7294-15-92 23:40:00>=80 mg/dL *NA*(03/14/2012 18:40:00)[facility]ZmdlmhsXQFQCNAAVO2131-56-39 23:40:00>=1000 mg/dL *ABN*(03/14/2012 18:40:00)[facility] IyhbfafSDCMZTMOWW9828-20-26 23:40:00Negative (03/14/2012 18:40:00)[facility] WqioqxpQCFPHESHKA8599-13-42 23:40:00Negative (03/14/2012 18:40:00)[facility] NfskmpnUIIAQSZWWO4307-12-37 23:40:000.2[facility] AeiwtnaSWYJMZZVXW2075-87-26 23:40:00Negative (03/14/2012 18:40:00)[facility] VyoegduBXPNPHBKSC0451-03-63 23:40:00Negative *NA*(03/14/2012 18:40:00)[facility] InsnfvsLCUAPPVJZZ3976-71-74 23:40:00Clear (03/14/2012 18:40:00)[facility] AIOCRXCVQC1434-72-87 23:40:00Yellow *NA*(03/14/2012 18:40:00)[facility] YECKPYMEAQ4814-30-12 23:40:00>=1.030 *ABN*(03/14/2012 18:40:00)[facility] QlurxfsROVRKDSKWK3002-86-74 23:40:00Occasional /LPF (03/14/2012 18:40:00) [facility] XdlhpamYVYUZMZDSI3782-43-68 23:40:003-5 /HPF (03/14/2012 18:40:00) [facility] LhmocyoHUCJFRMSLJ9608-41-36 23:40:00Occasional /HPF (03/14/2012 18:40:00)[facility] AhaokcgRVSZMUSDH2123-35-99 22:50:00Negative *NA*(03/14/2012 17:50:00)[facility] IdzcirtDNHAQMXZH6003-91-56 22:50:0045[facility] HermannCHEMISTRY 2012-03-14 22:50:001.2[facility] XoiqlayESOJNMNEK5198-17-83 22:50:003.8[facility] LgmanudCIDTNMHSO7213-29-80 22:50:0021[facility] BpaqyvpLCBIILHAT1910-05-99 22:50:0016.8[facility] QzyjuneJOOBROFDU1755-83-34 22:50:001.1[facility] CCSFRZSML6992-52-35 22:50:008.2[facility] BshsdexIEQRXQLWT7548-47-62 22:50:003.8 [facility] FdknanoNPEYLINUK4821-93-06 22:50:000.7[facility] HermannCHEMISTRY 2012-03-14 22:50:54106Wkqxcyzo RgjoyhkLTLSPSOLK7093-95-82 22:50:0099[facility] ZgdwdaoFPLRPAYBP4332-37-73 22:50:0027[facility] IwwlrypDVQHMCATV4461-51-69 22:50:56548Tluczysb JeiinbsGTRZOIYAD2056-06-54 22:50:0015[facility] JATKJLHQP7664-40-62 22:50:0024[facility] LlypvtzOEZRHFPOV0191-67-69 22:50:0020 [facility] AruffmoQVXENGMKR6437-00-38 22:50:0067[facility] HermannCHEMISTRY 2012-03-14 22:50:004.4[facility] XosuglhGADYHZUXM6650-11-50 22:50:009.9[facility] XcyodclGTEBSJYHBR4071-67-46 22:50:0011.8[facility] SgtonnfIQBFTZVGAW8178-93-93 22:50:0035.9[facility] XfkcrjzTXSVTMNLKT6829-59-44 22:50:00 Test Item Value Reference Range Interpretation Comments MCH (test code = MCH) 31.2 pg 27.0-31.0 H [facility] GgeplctOQAKNUOPLX2453-90-40 22:50:01904Lqqhpdfj HermannHEMATOLOGY 2012-03-14 22:50:0013.1[facility] VlhaydzAAYRVWMHWQ8076-75-00 22:50:0040.7[facility] IkntwyhUJZLNTRGQN0451-25-95 22:50:0014.6[facility] CldxqwsKXAAJLDQWJ5597-35-43 22:50:0087.0[facility] OrcogmxQVSKGHOCEE4106-81-48 22:50:0011.7[facility] YVPSGMXHBB7651-72-39 22:50:004.68[facility] ThbjhqlZINLJUCVZR2472-00-63 22:50:00 0.0[facility] LyebaxjRTMIWOWJEC8098-12-83 22:50:000.2[facility] HermannHEMATOLOGY 2012-03-14 22:50:000.0[facility] LoxpiwjZOKLYOZVGW1892-61-35 22:50:000.4[facility] ZwixwbjRQIAHQIBID9868-88-62 22:50:0010.6[facility] ZfmycirKNTRKHFCQG1589-96-05 22:50:000.7[facility] FzcjqbxCLCZLKNMZN5766-52-45 22:50:003.4[facility] RCHQGMFPRA7312-68-79 22:50:00Normal (03/14/2012 17:50:00)[facility] IAHFRUTUPD0217-52-82 22:50:006.0[facility] TlkukthROFMNKCJRK3929-07-72 22:50:000.0 [facility] RlcxncpKJWFTLWZPM7899-10-08 22:50:0090.4[facility] HermannHEMATOLOGY 2012-03-14 22:50:00Normal (03/14/2012 17:50:00)[facility] YQOLDNR7965-91-31 23:43:77367Zsvrvkeq HermannBEDSIDE GLUCOSE RMSPZSK0049-99-43 17:40:69118Jwtsvygv HermannBEDSIDE GLUCOSE XADHSQF7381-88-25 13:34:40126Bginzrrk NtsjzhrSVRAJLVMA2388-49-34 00:00:00Negative (11/28/2011 19:00:00)[facility] GreenvilleHwnalrrPXAXTCICFN1264-57-01 00:00:00Performed (11/28/2011 19:00:00)[facility]villeVagphghKFVPYBQSDU2559-27-09 00:00:00Occasional /LPF (11/28/2011 19:00:00) [facility] GreenvilleHivsowxMIEAYOGOSY2673-31-82 00:00:00None Seen (11/28/2011 19:00:00) [facility]rojxfvFNUEGDZZCF7100-72-85 00:00:00Negative mg/dL (11/28/2011 19:00:00)[facility] CenterRekmoeeLTMRUJAQKG8382-07-93 00:00:00 Test Item Value Reference Range Interpretation Comments UA pH (test code = UA pH) 7.0 1 5.0-8.0 N [facility] GsrtkbpWXGUPDBMNP3857-23-54 00:00:00 Test Item Value Reference Range Interpretation Comments UA Spec Grav (test code = UA Spec 1.020 1 N Grav) [facility] FjhedddWZRTZALRRZ7231-92-15 00:00:00Clear (11/28/2011 19:00:00)[facility] GreenvilleHtclznvLYRJWNGPFE6240-72-99 00:00:00Yellow *NA*(11/28/2011 19:00:00)[facility] LpumcemRLCRUXZASW7459-17-51 00:00:000.2[facility] ZwdswjtYHPDOIDELZ8968-58-79 00:00:00Negative (11/28/2011 19:00:00)[facility] LuonphwYCKTCGHCED4449-41-83 00:00:00Negative *NA*(11/28/2011 19:00:00)[facility] GreenvilleJbtgljkGOBFGORPJG0241-81-71 00:00:00>=80 mg/dL *ABN*(11/28/2011 19:00:00)[facility] HermannURINALYSIS 2011-11-29 00:00:00>=1000 mg/dL *ABN*(11/28/2011 19:00:00)[facility] QKLALMOFBH6329-81-92 00:00:00Negative (11/28/2011 19:00:00)[facility] INHSMXJJAV3037-99-79 00:00:00Negative (11/28/2011 19:00:00)[facility] VDQMRDBZP6205-57-75 20:41:0060[facility] PtithbzIGGJKQYTK1667-01-25 20:41:0041 [facility] XcatythTNWXESYVV4501-14-82 20:41:007.45[facility] HermannCHEMISTRY 2011-11-28 20:41:0037.0[facility] PwjdjomWJXMKSLYC3967-77-84 20:41:0092.0[facility] TpxopyyPAOUHQPXG8170-45-82 20:41:004[facility] AdtgsbyIJNVBDGXD5351-77-85 20:41:00 28.5[facility] OuxjxldVYOBUOKAO4066-02-77 20:00:001.6[facility] HermannCHEMISTRY 2011-11-28 20:00:03093Ixnghedn NzlgqeaLMKSWJOSA2775-23-36 20:00:004.2[facility] ArueldoLHODFXXVX4391-46-53 20:00:0023[facility] IdqhiexWHTSWGEME9007-55-16 20:00:0098[facility] GoxwwvtFYRQDQOLF6449-91-78 20:00:003.8[facility] CUTNHZQVZ2605-24-75 20:00:05733Bxiulgwa XqvglfhEUANSCSYA8816-17-64 20:00:000.7 [facility] VdrmpigLEBPYYCOE2679-69-24 20:00:009[facility] WwmpatpFMCTRCQLK6106-49-72 20:00:24988Xonsufzx LdyaqkcEIGRVWFIQ5282-49-73 20:00:0013[facility] SZRMNXUSM1334-23-57 20:00:0020.8[facility] WpjgazvJDLGBMHFP6903-15-22 20:00:009.3 [facility] SanrusePUJSTBYLL2439-79-66 20:00:006.7[facility] HermannCHEMISTRY 2011-11-28 20:00:001.7[facility] OuwsovlHAYCHOZXY1118-32-48 20:00:002.5[facility] GtaflepHBQWDYRNX6271-31-52 20:00:0018[facility] TgomhsyWXYNGNZUN5429-98-49 20:00:0062[facility] WrqsdfdZCMKQYSKH7972-96-29 20:00:0032[facility] TNSVVNUIM7358-52-75 20:00:000.7[facility] XqdyulkMQKTKMSADQ6001-87-78 20:00:001+ *ABN*(11/28/2011 15:00:00)[facility] LgxdpjqOBTJRCZAGO5915-31-98 20:00:000.1 [facility] WrkbqceNUYGUDAXLO1976-73-32 20:00:000.0[facility] HermannHEMATOLOGY 2011-11-28 20:00:000.0[facility] SwqejjwWRKBWSYMDA1566-82-55 20:00:00Slight *ABN*(11/28/2011 15:00:00)[facility] VbyviqkSYXMVFDKTF2224-63-20 20:00:00Slight *ABN*(11/28/2011 15:00:00)[facility] LkrzdrxRKSMPVAWLY6017-31-43 20:00:005.7 [facility] SffpuceNTAAREBSLC7039-18-18 20:00:000.8[facility] HermannHEMATOLOGY 2011-11-28 20:00:000.2[facility] RvcaxfvSPXRQERVCN4134-45-92 20:00:000.0[facility] QmrybcrNRMGSEJOQI7347-49-35 20:00:001.9[facility] TqhnewwUABCTGEZIK3942-00-35 20:00:0086.2[facility] DwibnplSANNPKZWBJ3461-75-76 20:00:0011.7[facility] CTOBERRRBY8352-12-07 20:00:0010.8[facility] CaaukqfSVCWJLQFSJ4205-34-53 20:00:00 161[facility] ZiipyrpWKSDJIULAT4789-69-77 20:00:0035.6[facility] HermannHEMATOLOGY 2011-11-28 20:00:0012.4[facility] SkpndrtMUDPHPBNEQ6324-43-55 20:00:00 Test Item Value Reference Range Interpretation Comments MCH (test code = MCH) 30.7 pg 27.0-31.0 N [facility] DsqoutvMLZDZKVNCG0983-29-92 20:00:0086.1[facility] HermannHEMATOLOGY 2011-11-28 20:00:0033.6[facility] ZidqkrjJGBXWPSSWL2066-34-60 20:00:0012.0[facility] XreaqsyEDSSRGUDCT9340-79-91 20:00:003.90[facility] IonzzchRFSRWECBBT3453-43-77 20:00:006.6[facility] DcwjyxbKEGBQTVQC6976-55-37 19:51:00See Note 5*NA*(11/28/2011 14:51:00)[facility] ZdmjazqFZAIOBMHW8992-71-62 19:51:00Negative *NA*(11/28/2011 14:51:00)[facility] AohyfnzERNYMHBYV9397-82-46 19:51:00Negative *NA*(11/28/2011 14:51:00)[facility] BhdmtalLLRRBPZRL4734-38-75 19:51:00Negative *NA*(11/28/2011 14:51:00)[facility] XreaipnACGZPXKGM2459-75-33 19:51:00Negative *NA*(11/28/2011 14:51:00)[facility] QjsksdfVWIBFJPDZ7750-15-76 19:51:00Negative *NA*(11/28/2011 14:51:00)[facility] AtgbjqtZVODIEUIG3809-36-89 19:51:00Negative *NA*(11/28/2011 14:51:00)[facility] DbcpntrYZNGOSSBQ5188-60-56 19:51:00Negative *NA*(11/28/2011 14:51:00)[facility] FIGMHZV0570-61-40 16:20:02568Jdcrfhfc MbyytqcNVRQVLPTQ5279-87-92 15:30:00Negative (09/18/2011 10:30:00)[facility] ShkddebIBDHYYNWEL6012-92-83 15:30:00None Seen (09/18/2011 10:30:00)[facility] EetcgzgIBIZQFDIMP3276-97-50 15:30:00None Seen (09/18/2011 10:30:00)[facility] AelkfzwFNINSHENNR1193-00-21 15:30:00None Seen (09/18/2011 10:30:00)[facility]villeFwxsknrKQUUBEOGNN9852-70-92 15:30:00Few /HPF *ABN*(09/18/2011 10:30:00)[facility] VmiotzxJNOUAFWKSR3136-32-11 15:30:00Performed (09/18/2011 10:30:00)[facility] WuzldanVYUFXFTDUK9212-52-32 15:30:00Rare /LPF (09/18/2011 10:30:00)[facility]villeZkpmpcxGHNWDMXGXH3522-42-38 15:30:0015 mg/dL *ABN*(09/18/2011 10:30:00)[facility]villeWwdlulvJBJRUPTXZO4066-79-02 15:30:00>=1000 mg/dL *ABN*(09/18/2011 10:30:00) [facility] FmuupknBYCEQMQMAY8313-83-02 15:30:00Trace *ABN*(09/18/2011 10:30:00) [facility] EbmfqhjNBRMKEYWKW0417-96-92 15:30:000.2[facility]annURINALYSIS 2011-09-18 15:30:00Negative (09/18/2011 10:30:00)[facility] 2011-09-18 15:30:00Negative *NA*(09/18/2011 10:30:00)[facility] 2011-09-18 15:30:00Negative (09/18/2011 10:30:00)[facility] 2011-09-18 15:30:00Negative (09/18/2011 10:30:00)[facility] HermannURINALYSIS 2011-09-18 15:30:00 Test Item Value Reference Range Interpretation Comments UA pH (test code = UA pH) 7.5 1 5.0-8.0 N [facility] DbfnmexVLBUDHSNSN6043-53-63 15:30:00 Test Item Value Reference Range Interpretation Comments UA Spec Grav (test code = UA Spec 1.010 1 N Grav) [facility] WvjudxsVKBKPSLGQZ9914-62-61 15:30:00Slight Cloudy (09/18/2011 10:30:00) [facility] IyyepzwCYLPKDCGZU0938-82-52 15:30:00Yellow *NA*(09/18/2011 10:30:00) [facility] OkkqtjyUGQLIBPIS2841-18-88 14:07:004.4[facility]annCHEMISTRY 2011-09-18 14:07:001.6[facility] HermannBEDSIDE GLUCOSE OOLDBPH0032-04-27 14:01:00 >400[facility] TjtvhkpWREHMMVRL4356-40-77 13:52:0010.1[facility]annCHEMISTRY 2011-09-18 13:52:0092[facility] XaxolfmBBXWIWZVD2231-88-94 13:52:0030[facility] FaucxyjHRKQPUGES7582-90-78 13:52:003.5[facility] PwpeuanJAOQHJBZK5774-13-18 13:52:59186Ispomifb UamldzcZIARUZOIL9425-88-50 13:52:001.3[facility] Vin ITOVDBZQZ6397-36-84 13:52:78491Wjilohhj TcwcoleWMFQLBCKC9923-40-44 13:52:0017 [facility] MpuhtveQZKFKRZEN2748-76-55 13:52:0014.5[facility]annHEMATOLOGY 2011-09-18 13:52:0012.0[facility] ZcmkzyfYRTZAYEKIA6677-77-16 13:52:19810Kkjdcocd LhysvymEXGHIFIEAJ6315-62-65 13:52:0033.7[facility] EnpzxkvDHCANFOLSQ9685-01-19 13:52:00 Test Item Value Reference Range Interpretation Comments MCH (test code = MCH) 28.5 pg 27.0-31.0 N [facility] PgfypyqYECRRBTOTK4767-37-91 13:52:0015.1[facility]annHEMATOLOGY 2011-09-18 13:52:0084.6[facility] VwkjcsjCLCYRMMYKF3851-53-08 13:52:0036.4[facility] NvqaeqwHYGYMPPGYA5770-97-54 13:52:0012.3[facility] VrypzfsXBHMFULEKF6371-71-68 13:52:004.30[facility] XpjytneJXSBKFDHTG9904-93-62 13:52:0011.7[facility] YACXPUVVXG4842-70-37 13:52:002.9[facility] NnhowgsLFRZMSXECJ3656-51-29 13:52:000.2 [facility] LniyqyvMIXAJLPVVO0058-76-60 13:52:000.0[facility]annHEMATOLOGY 2011-09-18 13:52:000.0[facility] RvsmndiJVWLDGCARA8172-61-82 13:52:000.3[facility] ClzrvpzVKVGKHQTIM1237-71-94 13:52:0092.0[facility] TffxujcAARWEGOQCC9168-39-13 13:52:004.9[facility] GgravacBRDBLOZCYQ1214-96-08 13:52:00Rare *ABN*(09/18/2011 08:52:00)[facility] IiqlbkvSFTXLBUKSK6065-90-31 13:52:00Slight *ABN*(09/18/2011 08:52:00)[facility] ZsjgkqsGDVDGYMEBO4840-40-83 13:52:001+ *ABN*(09/18/2011 08:52:00)[facility] YowpvxcRFJALIXWPT0287-28-20 13:52:001+ *ABN*(09/18/2011 08:52:00)[facility] XqskgduVPFRFYYDVT3158-15-67 13:52:000.6[facility] Vin JEWCRRXBHQ0626-96-31 13:52:0010.8[facility] YowtfjiUOETUWUUVM1881-69-66 13:52:00 0.0[facility] KtmpprqBLFVPFVDNX2629-86-00 13:52:001+ *ABN*(09/18/2011 08:52:00) [facility] DjwdgwuIXTYRXDKKN9576-30-58 13:52:00Negative *NA*(09/18/2011 08:52:00) [facility] PkiqcrdCAIIQAIZB9193-12-39 13:52:0024[facility]annCHEMISTRY 2011-09-18 13:52:0032.0[facility] KbvlbabMMMGCCGTW9735-37-32 13:52:0044[facility] IflsgjxRRFINRFFL2088-21-90 13:52:007[facility] GprzmfpENXRFXSKU9518-00-31 13:52:00 48.0[facility] YnzhexcGUHGEEVDL0993-12-08 13:52:0037.0[facility]annCHEMISTRY 2011-09-18 13:52:007.47[facility] HermannBEDSIDE GLUCOSE DWPALLO5288-35-41 17:34:19487Aewgqflp HermannBEDSIDE GLUCOSE EJRKHDL5717-05-08 11:43:0091[facility] HermannBEDSIDE GLUCOSE ZVWGWZK8470-15-78 02:45:93741Vszqooop HermannCHEMISTRY 2011-09-08 08:47:95241Jttwxcmu VssdhxyAKJWKULUV9704-88-95 08:47:69238Tzugnbjn PokjaitEOJKXEYJI5480-81-98 08:47:0029[facility] LxczzplBJBBJDEFZ6746-62-85 08:47:93705Ynqmeqtn IqqalwpAMAGWQKKY2865-64-54 08:47:0010[facility] Vin GXHNTDVRG4550-06-48 08:47:003.8[facility] KgoysfdQADVOLGFJ8765-41-12 08:47:000.6 [facility] GrzwqgnUPSSEBJQW8719-82-34 08:47:008.5[facility]annCHEMISTRY 2011-09-08 08:47:0014.8[facility] WznpfwtAADHMEBFBR5606-10-79 08:47:00 Test Item Value Reference Range Interpretation Comments MCH (test code = MCH) 28.9 pg 27.0-31.0 N [facility] MbfjiamQEVTWKDPAG0880-67-40 08:47:0082.1[facility]annHEMATOLOGY 2011-09-08 08:47:0025.9[facility] DcgxclfLKFQEUSMUF9261-84-51 08:47:97152Cbtxmjnq AyazdtmINPSKLDIDT1045-27-04 08:47:0014.5[facility] NnlnworTAXYMJWOFN3451-12-28 08:47:0035.2[facility] HsdmyseTDVUXJEMJL3198-41-30 08:47:009.1[facility] Vin VGLFBOUSXX7906-13-37 08:47:003.15[facility] DpifytzIKMJVXMWJK4457-01-10 08:47:00 9.0[facility] YepynuoQAXECEPJLY3515-54-16 08:47:006.3[facility]annHEMATOLOGY 2011-09-08 08:47:000.0[facility] VbqyncwJZPYJXVLPY3172-46-51 08:47:000.0[facility] IrvwdhyYBIMIFQBLS5068-68-98 08:47:003.8[facility] LisljljLXLVVASEPB7357-80-33 08:47:002.0[facility] ZnbutjyYTDPJQSPWT4812-18-86 08:47:000.5[facility] VDFGOKYULK2402-10-66 08:47:000.7[facility] RtlaepbAQYCEBKWVU6958-76-35 08:47:006.2 [facility] MemcserKPMZFGWIHT1746-86-07 08:47:0061.1[facility]annHEMATOLOGY 2011-09-08 08:47:0031.5[facility] KavifwzWUMEMWHBSN7015-98-31 08:47:000.4[facility] LxzpgqvSPCAUNEMG9702-58-35 10:54:0027[facility] QybxkchTSAYVPREB6254-40-50 10:54:24876Iugtofqq WvnkazhWIABANMUE2645-73-03 10:54:000.5[facility] PCKHHAJQJ4195-76-54 10:54:0010[facility] ElpgxzvOAQZFBCRC7125-96-47 10:54:004.1 [facility] HhqaocaRXGDICUVJ5694-73-32 10:54:85336Mquywzdi HermannCHEMISTRY 2011-09-07 10:54:0083[facility] MdcdtgyYPHPVARZS1972-54-05 10:54:008.4[facility] JqpetktSYVLNFUQH4757-47-22 10:54:0014.1[facility] OmogecpDBKWXIDZYW3900-94-67 10:54:0035.5[facility] DdumoxiSAGXGSBAKX2188-02-66 10:54:004.7[facility] Vin ZGTQYISPNJ9655-82-41 10:54:0092.6[facility] HismlsrVPIPBTYEGS7204-35-81 10:54:00 Test Item Value Reference Range Interpretation Comments MCH (test code = MCH) 31.4 pg 27.0-31.0 H [facility] DayirifMFZNTUFBMQ1848-48-25 10:54:003.84[facility]annHEMATOLOGY 2011-09-07 10:54:0012.1[facility] FlnqqxfZCWWZLYFFH3101-26-99 10:54:22082Lsoufbbk QhdwzjrBRNJPVBSPL9003-83-57 10:54:0012.7[facility] JnprecjIOPVJAXSQK1831-38-70 10:54:0033.9[facility] DixbzjxONVMITKLHP3356-21-34 10:54:007.2[facility] KIDUWHKEMS5274-96-24 10:54:000.95[facility] UcghxenFSVGJENUYO2871-67-65 10:54:00 Test Item Value Reference Range Interpretation Comments PT (test code = PT) 12.7 s 12.0-14.7 N [facility] DjjbmehJVMHWGQTPS7955-63-42 10:54:00 Test Item Value Reference Range Interpretation Comments PTT (test code = PTT) 28.5 s 22.9-35.8 N [facility] CnycpkuWRWWUXYERT4984-56-04 10:54:000.1[facility]annHEMATOLOGY 2011-09-07 10:54:000.0[facility] MyhgcnnOAZJGZMDDS5519-21-66 10:54:000.4[facility] DqtoynrDPIJPUVQNI8438-40-96 10:54:002.1[facility] RpjoyzgDAPDJPUETW3117-34-34 10:54:009.0[facility] VjcukrwWRBSMBPGPX8923-43-97 10:54:002.4[facility] VSEAPNAWJJ5255-32-44 10:54:000.4[facility] NixxojsJHXBYQSGKF0206-18-14 10:54:002.0 [facility] OlzqgvsOITVNWPKRM5350-75-09 10:54:0042.8[facility] HermannHEMATOLOGY 2011-09-07 10:54:0045.4[facility] YppneedRCMZQWPSB8547-68-38 10:02:09800Alswxpwe IbdohapWXQFQGYYU9924-61-56 10:02:004.1[facility] MsqqkdxQOSAWOSSZ1813-84-45 10:02:88700Aiyvfgew HanjpwgUAEBVDCYQ6410-86-44 10:02:0029[facility] SBXNKGXUX0865-32-80 10:02:008.7[facility] PvgxpuiXMGOWAXZC1921-56-69 10:02:006 [facility] BkplxejLISXXXILY3669-88-87 10:02:000.6[facility] HermannCHEMISTRY 2011-09-07 10:02:12754Ttkwjtgm RlpgvscTAIXMPFBG2212-23-59 10:02:0013.1[facility] OligsctIOIHHTRHZY6439-17-18 10:02:000.0[facility] UwidfcuVCYFLXWJLH6141-78-46 10:02:000.3[facility] OdvblhwRBVGLSHJDY8706-62-36 10:02:000.1[facility] AWAFEAJKZF2263-02-43 10:02:002.8[facility] DivstirCGRTXJZVEN0095-87-90 10:02:001.7 [facility] IejktshKCZWENFRYP7697-49-69 10:02:000.6[facility] HermannHEMATOLOGY 2011-09-07 10:02:006.9[facility] GifglxxICQRAPCBDE4812-79-05 10:02:002.0[facility] XgiuxjhCRXHDFRJFZ2791-76-65 10:02:0055.8[facility] LtdduaaTQLBBOQKGE8522-75-59 10:02:0034.7[facility] InrndvrIISTMVTJLN5653-39-62 10:02:00 Test Item Value Reference Range Interpretation Comments PTT (test code = PTT) 32.2 s 22.9-35.8 N [facility] RjqziybSHSTPYUZOE3399-49-80 10:02:00 Test Item Value Reference Range Interpretation Comments PT (test code = PT) 13.3 s 12.0-14.7 N [facility]mqripjBHHGGRYVIE6796-24-87 10:02:001.01[facility] HermannHEMATOLOGY 2011-09-07 10:02:0027.5[facility] NfsyzviWZJYZECRUF8811-21-18 10:02:003.34[facility] UxfkblwZPPRJJPXWE2362-38-51 10:02:009.7[facility] IyogswiSSHMMNNWWK6746-54-56 10:02:005.0[facility] YpalfucWVEEHAIZRQ2241-62-88 10:02:009.2[facility] QBERFVOTMZ3032-74-58 10:02:59818Jsxijnhn AhpgwqgVQGNFTHNSH7725-89-41 10:02:00 14.3[facility] CefytyhRODNZDEPSX3316-99-82 10:02:0035.2[facility] HermannHEMATOLOGY 2011-09-07 10:02:00 Test Item Value Reference Range Interpretation Comments MCH (test code = MCH) 28.9 pg 27.0-31.0 N [facility] PudtsfyLOXEJHBSJC8552-98-76 10:02:0082.1[facility] HermannCHEMISTRY 2011-09-03 09:24:002.1[facility] BpjiatbOMPDPQORK1897-12-89 17:10:0037.0[facility] TlrzswaRQTFZMNZY7075-25-97 17:10:0027.0[facility] IcnsiygOFLAKLHRY8327-09-07 17:10:0047[facility] QkgyjtfDRWKPJRKL9555-34-45 17:10:007.37[facility] YQHXZRHJL2652-16-99 17:10:001[facility] LvzvzdfTIDIOUMWC0333-16-69 17:10:0027.2 [facility] ZhaziqaHCTDDLVUW9848-04-97 17:10:0019[facility] HermannCHEMISTRY 2011-09-01 13:09:001.0[facility] UnwphmdSAVUSJOKP5113-93-44 12:20:00Negative (09/01/2011 07:20:00)[facility] LgkfadaFHROBTQXBV0678-80-30 12:20:00Occasional /LPF (09/01/2011 07:20:00)[facility] XcdxhgiBRRXBZGAPO0565-21-97 12:20:00Negative (09/01/2011 07:20:00)[facility] HdevmuvVXKRRGGDBF0059-89-09 12:20:00Negative (09/01/2011 07:20:00)[facility] MojbozjETBSBXSPSZ5928-21-22 12:20:000.2[facility] FtyxhavEUAQTIZQPV2259-13-34 12:20:00Negative (09/01/2011 07:20:00)[facility] DaikxkdSVSUHXAPNU7388-12-53 12:20:00>=80 mg/dL *ABN*(09/01/2011 07:20:00) [facility] HicqmglKVLYWOSXXL8448-92-77 12:20:00Negative (09/01/2011 07:20:00) [facility] WwahqtkAAJOIAMDSL0666-18-36 12:20:00 Test Item Value Reference Range Interpretation Comments UA pH (test code = UA pH) 6.0 1 5.0-8.0 N [facility] TrpyosgPMUIBQJULO6261-22-95 12:20:00Negative (09/01/2011 07:20:00) [facility] JycnhteUZBOPHSNGT1587-30-18 12:20:00>=1000 mg/dL *ABN*(09/01/2011 07:20:00)[facility] FgeyaehXSHWQXVLOQ1362-05-26 12:20:00 Test Item Value Reference Range Interpretation Comments UA Spec Grav (test code = UA Spec 1.035 1 H Grav) [facility] DazmoylBZEODLFXUG2693-48-45 12:20:00Clear (09/01/2011 07:20:00)[facility] MnhmopuILJRDHPGIC0768-44-04 12:20:00Yellow *NA*(09/01/2011 07:20:00)[facility] KpfvdioRWDELMYFO9208-74-59 08:00:002.8[facility] TpwslvxFLTYNZFEB3944-98-66 07:47:001.5[facility] UvbalbfVOQBQNGOQK6802-62-58 07:47:00Slight (09/01/2011 02:47:00)[facility] AwbgvmrOLIGGMSZPX1334-92-07 07:47:001+ *ABN*(09/01/2011 02:47:00)[facility] DuekvaoUSPNVVAWQL7915-16-63 07:47:00Slight *ABN*(09/01/2011 02:47:00)[facility] QnfgmxdPBOWIVNKYV5513-04-61 07:47:00Slight *ABN*(09/01/2011 02:47:00)[facility] HermannBEDSIDE GLUCOSE RPOIIGG9932-94-45 17:02:92837Enswluye HermannBEDSIDE GLUCOSE QYQVIKR6452-36-70 13:45:87940Vpdicazq HermannCHEMISTRY 2011-08-23 10:22:003.0[facility] WzmdobgEFZHFCBTF4864-58-25 10:22:001.8[facility] PfpadmdMFEKUFEVR5822-30-89 10:22:41727Creyemep QpcyphjPHHRKQXNP3371-37-47 10:22:003.0[facility] CblfymmFRSQHAZQC9105-36-74 10:22:10547Plvvilbb Vin DSAGRMQQL7782-47-82 10:22:000.6[facility] FcfqwiqWSLFPQZFG8656-40-75 10:22:0023 [facility] BqrcpfdWNBZDBAVL9083-96-46 10:22:007.3[facility] HermannCHEMISTRY 2011-08-23 10:22:41492Gklaocdu MosxsjlXSXZAPCRT2946-20-74 10:22:0014.0[facility] LqvmgmhNDMVXMCDR4021-11-38 10:22:005[facility] XttjezdJIKFHFJNSX7685-24-96 10:22:0069.6[facility] YqfsdpmWWFHWEVLSS7073-48-31 10:22:0021.5[facility] ASKHPTUXFX5307-95-60 10:22:007.6[facility] QtpqwfiBECEQLBJII3401-43-81 10:22:001.0 [facility] ZaxlznoQCXXMZTTQN5565-58-13 10:22:000.3[facility] HermannHEMATOLOGY 2011-08-23 10:22:004.8[facility] VhmzmjhXBJKUZDFSU7312-28-31 10:22:000.1[facility] DmbirqgBWTFQZIPJV9852-39-23 10:22:001.5[facility] BlsysnyAJQAOJIYUN3102-10-66 10:22:000.5[facility] YhljdpxMXNIYMHNOP4475-03-90 10:22:000.0[facility] LZLKVTDADP8283-83-34 10:22:0011.0[facility] QhihyqcTLWAPWDLYQ3252-36-08 10:22:00 161[facility] CxpysonQXBJEGHDOC7816-05-46 10:22:00 Test Item Value Reference Range Interpretation Comments MCH (test code = MCH) 29.6 pg 27.0-31.0 N [facility] KdvcfebKXIQLAKVAQ3450-55-16 10:22:0035.4[facility] HermannHEMATOLOGY 2011-08-23 10:22:0014.1[facility] TidrqdmEQANTOTJFY2357-90-67 10:22:006.8[facility] CinodoeVMQNFRKHSG1320-20-32 10:22:0083.5[facility] HxrblwyFYNEWPVRNX2294-53-06 10:22:004.44[facility] EigawloFJFDVYKYUP1130-49-43 10:22:0013.1[facility] BRJYQWORZX3361-07-62 10:22:0037.1[facility] HermannBEDSIDE GLUCOSE TESTING 2011-08-23 02:20:51013Yjorvfek NdflsfuENNUUZRCK5301-10-34 09:47:002.5[facility] YsklrucLCDFWLSMX4508-12-77 09:47:91704Dhdfqilk QqykgaqMUZYLCLIM4472-37-21 09:47:007[facility] EqiyuwcRHFUNSZZX2822-51-23 09:47:0019[facility] HermannCHEMISTRY 2011-08-22 09:47:000.3[facility] PetvvauBVVYYOLIC0693-22-91 09:47:23197Sqzwmygt AtjctzaGFRONAWYS6131-41-17 09:47:40723Fqfwojhv DddpznyGCMNYSYRZ2007-63-97 09:47:003.6[facility] QjftvvwNFJPHGBHN7878-97-08 09:47:007.9[facility] SFFUMTNYY7636-14-27 09:47:0018.6[facility] MyctypcZBLZVCPBB6341-53-60 09:47:001.6 [facility] SdasqvfEZUWYAJDQD2640-74-39 09:47:000.0[facility] HermannHEMATOLOGY 2011-08-22 09:47:000.4[facility] CyvkbvnMHDOJGHOCC0715-67-02 09:47:000.5[facility] RfioxnkOKKFLLTBMK1122-97-08 09:47:005.9[facility] ShqakzbNQRQYHUOTJ4752-79-40 09:47:001.2[facility] TjbeuetHSNEFWXIEP2531-27-20 09:47:000.5[facility] XSZYDDALFX4156-80-54 09:47:000.0[facility] AhnrokpUFCKPUOYOG8608-14-43 09:47:00 76.9[facility] LumekxhVGBPMRQQWA6975-23-73 09:47:0015.9[facility] HermannHEMATOLOGY 2011-08-22 09:47:006.3[facility] RhsdowfJCOVKYWYKK0719-33-68 09:47:0082.8[facility] BdnwumbGOIHSKAQRR2732-38-14 09:47:0039.7[facility] MmcqoydYKOLQHXFXG7925-62-11 09:47:00 Test Item Value Reference Range Interpretation Comments MCH (test code = MCH) 29.1 pg 27.0-31.0 N [facility] FvcjvmeVYPCAVSCIB7818-43-32 09:47:0014.0[facility] HermannHEMATOLOGY 2011-08-22 09:47:0035.2[facility] DbbmecdFCCMXDKQYV4389-78-26 09:47:0013.9[facility] NrovjzpJRCQZSMFJI5867-52-38 09:47:33858Vpypyubz PdwzttsZEMRLXMFPJ2344-68-66 09:47:0011.9[facility] PlbytenQIUOHUCCKD2247-84-67 09:47:007.7[facility] KBAHEVLOSD3935-27-68 09:47:004.80[facility] FlyopwlCHXUFXAYD1567-40-86 10:28:002.6 [facility] BkzszwpAANCTBTVW0507-42-31 10:28:001.8[facility] HermannCHEMISTRY 2011-08-21 10:28:003.7[facility] AoocxihBWBGVTHFV0492-36-61 10:28:02476Utllkuja GhafbwgXESKUJWEN7221-54-96 10:28:000.6[facility] DlansfnZEZEIYBVG1890-12-11 10:28:0016[facility] RhxdtslLHLOVRKHD4064-22-44 10:28:63372Rjzqthun Vin YNRIHZXTN3875-46-98 10:28:008.3[facility] IrwivbeKPXKATZWD8064-52-33 10:28:0019.7 [facility] MbprmhaRHFLFPUAN5097-83-36 10:28:0099[facility] HermannCHEMISTRY 2011-08-21 10:28:0022[facility] CsrzzcgYELDVOUDMS5384-01-45 10:28:32322Iszcnmde EfxsdycDKYNKYFWCO3359-84-14 10:28:0012.0[facility] GyalppfQCRVPGZKTF6375-97-64 10:28:007.3[facility] MdkqjxjOUBGXDVVAM0637-05-49 10:28:0014.6[facility] KWBNHDRQBW7816-05-13 10:28:0035.0[facility] JasrdxuCNMWIUPKBC4017-07-95 10:28:00 4.54[facility] BocfdzbNKEPYZRLQI4811-64-84 10:28:0037.6[facility] HermannHEMATOLOGY 2011-08-21 10:28:0082.9[facility] LrywlpuCZGALZAQRJ1944-60-37 10:28:00 Test Item Value Reference Range Interpretation Comments MCH (test code = MCH) 29.0 pg 27.0-31.0 N [facility] OfdgswiKKHECRKIYW9197-08-52 10:28:0013.2[facility] HermannHEMATOLOGY 2011-08-21 10:28:00Slight *ABN*(08/21/2011 04:28:00)[facility]annHEMATOLOGY 2011-08-21 10:28:00Slight (08/21/2011 04:28:00)[facility]annHEMATOLOGY 2011-08-21 10:28:000.0[facility] GntniruJHLTKZFPLT6414-76-23 10:28:00Slight (08/21/2011 04:28:00)[facility] ZoueshhSLRDHCROWQ2217-34-29 10:28:000.6[facility] LukosduIBCRLISUUP4801-34-16 10:28:000.0[facility] VagjerbCRPFKNEKAT9564-22-46 10:28:005.3[facility] MxzvamoKQALPPUNVW4807-98-29 10:28:001.3[facility] LSOCYUXUFR2858-30-53 10:28:000.5[facility] TpfjpxhZRLTLFVAPM4164-94-11 10:28:008.5 [facility] YtcxmovFSRSRMAHEH1408-75-39 10:28:000.3[facility] HermannHEMATOLOGY 2011-08-21 10:28:0017.3[facility] WannqdaLQJLBBGWTG1454-69-35 10:28:0073.4[facility] QkmnakkCLIEYIOPO8589-39-47 21:58:00Negative (08/19/2011 15:58:00)[facility] GkzjqbsQHFHCVJPF3143-73-13 21:58:27498Vhenujef CdfqujeOBTJOAKVU7343-13-53 21:58:0054[facility] TxkbcaiAHLSAFADJ5198-27-73 21:58:58058Oeonejhd [place] VRYPWXFFS4007-47-10 21:58:000.1[facility] NyqwpcsFXOYRCTWM7198-05-89 21:58:000.9 [facility] TqxclsvIOLCOAUVZ0988-14-96 21:58:004.4[facility] HermannCHEMISTRY 2011-08-19 21:58:008.8[facility] SjjbxrxGOXCOAEZZ1638-99-03 21:58:000.8[facility] EjelukbHIQTQDBYD2636-30-44 21:58:0036[facility] ZtqusxsPBIYJVELJ1729-08-40 21:58:004.4[facility] FviqxpxZNROYRHII9729-03-60 21:58:001.0[facility] Vin FDXBEWFRRM3720-25-24 21:58:00Occasional /HPF (08/19/2011 15:58:00)[facility] PzdigxaIODWXWNUBJ2704-84-06 21:58:003-5 /HPF *ABN*(08/19/2011 15:58:00)[facility] HxwdrtxPWLMTBLKXW8170-08-62 21:58:003[facility] ExdywxfMYFEUQIULC6739-67-10 21:58:00Few /LPF (08/19/2011 15:58:00)[facility] NpitgmbMAXPDJRALT4382-47-45 21:58:00Occasional /HPF *ABN*(08/19/2011 15:58:00)[facility] HermannURINALYSIS 2011-08-19 21:58:000.2[facility] GotdmmxENIDCFPNVZ6574-35-85 21:58:00Rare /LPF (08/19/2011 15:58:00)[facility] LhypcqsNHWQXCDENH4160-21-04 21:58:00Performed (08/19/2011 15:58:00)[facility] OuazeriKGBJGDDHJX5142-67-92 21:58:00Negative (08/19/2011 15:58:00)[facility] HywbuvuVQBQFPBNUL6964-33-19 21:58:00Negative (08/19/2011 15:58:00)[facility] YyihvqdWKYYKBOUET7149-90-97 21:58:00 Test Item Value Reference Range Interpretation Comments UA pH (test code = UA pH) 5.5 1 5.0-8.0 N [facility] ShzrjhuLEIZPMGBSR0609-58-23 21:58:00Trace *ABN*(08/19/2011 15:58:00) [facility] AaobixlZYWJDLMKWG4365-25-90 21:58:00Negative (08/19/2011 15:58:00) [facility] NtiimhmJODALPVLNH9227-65-88 21:58:0080 mg/dL *ABN*(08/19/2011 15:58:00) [facility] TpwrslaWRSNXUIPAN4775-83-39 21:58:00>=1000 mg/dL *ABN*(08/19/2011 15:58:00)[facility] FelmapkRTFKCXWSNW5712-13-51 21:58:00Negative (08/19/2011 15:58:00)[facility] FnpgijkOOXOIGOJLB6712-19-56 21:58:00Slight Cloudy (08/19/2011 15:58:00)[facility] WwdzqryNFSBZAFAIR9113-09-26 21:58:00 Test Item Value Reference Range Interpretation Comments UA Spec Grav (test code = UA Spec 1.025 1 Grav) [facility] TcfnxkaAYPWPJJDHC7408-43-83 21:58:00Yellow (08/19/2011 15:58:00) [facility] EarrnmaOZXSYPIZJ7175-22-07 21:13:0023[facility] HermannCHEMISTRY 2011-08-19 21:13:001.0[facility] IdjorlwTGDWLWJUG0875-88-64 21:13:18737Jnnqhqld MqjhaqiOWIZPSDNA4854-81-27 21:13:0056[facility] ZdwwxwfFIZCNSCNN8243-60-11 21:13:009.0[facility] WlgyqszSBYWVYCPN1160-83-98 21:13:004.8[facility] Vin NYVOEWGVF1528-87-78 21:13:004.2[facility] HvmbcvuMUQWKZKKG1928-51-97 21:13:001.1 [facility] IukkcfrYMMKOGPCN5172-14-03 21:13:0030[facility]annHEMATOLOGY 2011-08-19 21:13:00Normal (08/19/2011 15:13:00)[facility]annHEMATOLOGY 2011-08-19 21:13:00Slight *ABN*(08/19/2011 15:13:00)[facility] HermannHEMATOLOGY 2011-08-19 21:13:000.0[facility] TuhfvpvSLCJJJBTEK8614-66-29 21:13:000.0[facility] SnjbuejHYDFHTRGJ9335-55-68 21:10:0074.0[facility] AelexmbCSAQONPDE4896-64-87 21:10:0037.0[facility] VvqgudjWVIWUMLHS2349-08-56 21:10:0042[facility] Vin HUQTAKYMP7591-71-56 21:10:0017.3[facility] GjmefrpAXYBFUGCT2689-37-35 21:10:007.34 [facility] KgrsbofAHXMWUGGZ0675-82-14 21:10:0032[facility] HermannCHEMISTRY 2011-08-19 21:10:00-7[facility] ZyjqorlESAEPHBOHR6649-49-35 20:34:00Negative *NA*(08/19/2011 14:34:00)[facility]
[2020-12-20] MEDS ORDERED: IBUPROFEN 400 MG TAB ONE (18:09)
[2020-12-20] MEDS ORDERED: ACETAMINOPHEN 500 MG TAB ONE (18:12)
[2020-12-20] MEDS ORDERED: cloNIDine HCL 0.1 MG TAB ONE (18:14)
--- NOTE | 2020-12-20 18:30 | RAD REPORT ---
EXAM DESCRIPTION: RAD - Pelvis - 12/20/2020 6:19 pm CLINICAL HISTORY: Pelvic pain FINDINGS: No fracture or dislocation is seen. No significant bone or joint abnormality noted.
--- NOTE | 2020-12-20 18:31 | RAD REPORT ---
EXAM DESCRIPTION: RAD - Knee Left 3 View - 12/20/2020 6:19 pm CLINICAL HISTORY: Left knee pain FINDINGS: No fracture or dislocation is seen. Mild narrowing of the medial compartment. Vascular calcifications
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
[2020-12-20] MEDS ORDERED: CYCLOBENZAPRINE 10 MG TAB ONE (19:13)
[2020-12-20 19:25] VITALS: TEMP 98.5
[2020-12-20 19:29] VITALS: BP 189/102; O2SAT 100
== END 2020-12-20 19:00 | disposition home or self-care (01) ==
LOC: ER 17:20
DX: S80.12XA Contusion of left lower leg, initial encounter (principal); S30.0XXA Contusion of lower back and pelvis, initial encounter; W22.8XXA Striking against or struck by other objects, initial encounter; Y92.512 Supermarket, store or market as the place of occurrence of the external cause; E11.22 Type 2 diabetes mellitus with diabetic chronic kidney disease; I13.2 Hypertensive heart and chronic kidney disease with heart failure and with stage 5 chronic kidney disease, or end stage renal disease; N18.6 End stage renal disease; I50.9 Heart failure, unspecified; Z99.2 Dependence on renal dialysis; Z88.0 Allergy status to penicillin; Z88.5 Allergy status to narcotic agent; Z88.6 Allergy status to analgesic agent; Z88.8 Allergy status to other drugs, medicaments and biological substances; F17.210 Nicotine dependence, cigarettes, uncomplicated
CPT/HCPCS: 72170; 99284

== ENCOUNTER 2020-12-30 08:36 | Emergency (ER) | payer OTHER ==
--- OUTSIDE RECORDS SUMMARY | 2020-12-30 08:42 | XMS REPORT | Continuity of Care Document ---
:1980 Author Organization [facility] t Address [address] [place] [address] Care Team Providers Name Role Phone Sharpless Primary Care Physician [place] Attending Clinician Unavailable Marshall BURNS, K.H. Attending Clinician Doctor Unassigned, Name Attending Clinician Unavailable Carlos BURNS Attending Clinician Manuel Sanchez DO Attending Clinician Jovita Cleaning DPM Attending Clinician Chivo Attending Clinician Unavailable Chivo Attending Clinician Unavailable HAWA BHAKTA Attending Clinician Unavailable Chivo Admitting Clinician Unavailable HAWA BHAKTA Admitting Clinician Unavailable Payers Payer Name Policy Type Policy Number Effective Date Expiration Date S karla MEDICARE PART A [id number] 2014 2024 AND B 00:00:00 00:00:00 Problems Condition Condition Condition Status Onset Resolution Last Treating Co mments Source Name Details Category Date Date Treatment Clinician Date Liver Liver Disease Active [facility] (acute SAN[facility] (acute Disease Active [facility] kidney kidney 7-16 [facility] injury) injury) 00:00: [facility] 00 [place] CKD CKD Disease Active [facility] (chronic (chronic 01-03 [facility] kidney kidney 00:00: Medical disease) disease) 00 Center Acute Acute Disease Active [facility] encephalop encephalop 01-03 Pati kes - athy athy 00:00: Medical 00 [place] Ulcer of Ulcer of Disease [facility] toe [facility] toe of 01[facility]03 [facility] - left foot left foot 00:00: [facility] 00 [place] Peripheral Peripheral Disease Active [facility] neuropathy neuropathy 01-03 Pati kes - 00:00: Medical 00 [place] Hyperglyce Hyperglyce Disease Active [facility] 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 01-03 Pati kes - type 2 type 2 00:00: Medical diabetes diabetes 00 [place] mellitus mellitus Gastropare Gastropare Disease Active [facility] sis due to sis due to 01-03 Pati kes - DM DM 00:00: Medical 00 [place] Cyclic Cyclic Disease Active [facility] 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 00:00: Medica l 00 [place] Anxiety Anxiety Disease Active [facility] 01-03 [facility] - 00[facility]: [facility] 00 [place] Bipolar Bipolar Disease Active [facility] disorder disorder 01-03 [facility] - 00:[facility]: [facility] 00 [place] Hypertensi Hypertensi Disease Active [facility] ve ve 01-03 [facility] - emergency emergency 00:00: [address] Allergies, Adverse Reactions, Alerts Allergy Allergy Status Severity Reaction(s) Onset Inactive Treating Comm ents Source Name Type Date Date Clinician Zolpidem Drug Active Other (See confusion [facility] Allergy Comments) 01-03 [facility] - 00:[facility]: [facility] 00 [place] Lisinopr Drug Active Other (See Unable to [facility] il Allergy Comments) 01-03 remember [facility] - 00:00: Medical 00 [place] Nitrofur Drug Active Anaphylaxis Liver [facility] antoin Allergy 01-03 failure [facility] - Monohyd/ 00:00: Medical M-Cryst 00 [place] Penicill Drug Active Shortness Of [facility] ins Allergy Breath 01-03 [facility] - 00:[facility]: [facility] 00 [place] Guaifene Drug Active Other (See numbness [facility] sin Allergy Comments) 01-03 [facility] - 00:[facility]: Medical 00 Center Social History Social Habit Start Date Stop Date Quantity Comments Source Sex Assigned At [facility] Cigarettes smoked 2017-12-17 2017-12-17 [facility] Paul - current (pack per 00:00:00 00:00:00 Medical Center day) - Reported Cigarette 2017-12-17 2017-12-17 [facility] Paul - pack-years 00:00:00 00:00:00 [facility] Center Alcohol intake 2017-12-17 2017-12-17 Current [facility] Coker es - 00:00:00 00:00:00 non-drinker of Medical Ce nter alcohol (finding) Tobacco Comment 2017-01-03 2017-01-03 patient stated [facility] nam Lujazmin - 00:00:00 00:00:00 she stopped [address] month ago. History of tobacco 2016-12-04 Smoker [facility] Paul - use 00:00:00 [facility] Smoking Status Start Date Stop Date Source Former smoker 2017-12-17 00:00:00 2017-12-17 00:00:[address] [facility] - [facility] Medications Ordered Filled Start Stop Current [...] al 40 MG 59 Center tablet amLODIPine 2016- Yes 10mg QD Take [address] (NORVASC) 5 7-20 by mouth Luke s - MG tablet 15:20: daily. Medica l 59 Center hydrALAZINE 2017 Yes 100mg [id number] Take [address] (APRESOLINE 7-20 [id number] mg by L ukes - ) 100 MG 15:20: 3D mouth 3 Medica l tablet 59 (three) Center times daily. magnesium 2017- Yes 400mg QD Take [address] oxide 7-20 mg by [facility] - (MAG-OX) 15:20: mouth Medical 400 mg 59 daily. Center tablet metoclopram 2017- Yes 10mg Q.[id number] Take [address] gadiel HCl 7-20 [id number] by mouth 3 [facility] - (REGLAN) 10 [...] Date/Time Type Type Clinicians Facility Department ID 2020-12-25 Outpatient [place] [facility] [id number] [place] 11:57:36 [facility] 2020-12-24 2020-12-24 Outpatient [facility] [address] [facility] 10:32:00 10:32:00 2020-10-27 2020-10-27 Keyona Olivares [facility] [id number] 00:00:00 00:00:00 (Out) Oz Sim[place] [id number] [place] [id number] Professio [id number] nal 059 [facility] 2020-10-24 2020-10-24 Orders Doctor JOANNA [id number] 00:00:00 00:00:00 Only Unassigned, MAGDALENO [id number] [facility] [id number] 2020-09-24 2020-09-24 [facility] [id number] 00:00:00 00:00:00 Jose Luis Sims [id number] [place] [id number] Professio [phone] nal 220 [facility] 2020-09-09 2020-09-09 Patient Daniel, [facility] [id number] 00:00:00 00:00:00 [facility] [id number] Manuel [facility] [id number] PAVAIME [id number] 2020-07-23 2020-07-23 Office [facility] [id number] 13:31:20 14:37:36 Visit Deja PRIMARY [id number] A CARE [id number] PAVILLION [id number] 2020-01-25 2020-01-31 Inpatient 1 Rei Waldron [facility] GPY [id number] 21:31:00 18:15:00 Rei Waldron [facility] Results Test Description Test Time Test Comments [...] the main Lab for analysi s. Urine [id number] 11:32:13 Test Item Value Reference Range Interpretation [...] Escherichia coli C Urine Added by [id number]_[id number]_INDPOC [id number] 07:52:10 Test Item Value Reference Range Interpretation Comments Glucose POC (test 160 mg/dL 70-115 H If you con plumbing engineer your code = Glucose POC) patient critically ill, the Merlin-Accu Check Infrom II meter should not be used for Glucose determination. Draw a venous Glucose and send to the main Lab for analysis. POC [id number] 19:32:05 Test Item Value Reference Range Interpretation Comments Glucose POC (test 184 mg/dL 70-115 H If you con plumbing engineer your code = Glucose POC) patient critically ill, the Merlin-Accu Check Infrom II meter should not be used for Glucose determination. Draw a venous Glucose and send to the main Lab for analysis. POC [id number] 17:16:35 Test Item Value Reference Range Interpretation Comments Glucose POC (test 281 mg/dL 70-115 H Notify RN or MDIf you code = Glucose POC) consider your patient critically ill, the Merlin-Accu Chec k Infrom II meter should not be used for Glucos e determination. Draw a venous Glucose and send to the main Lab for analysis. POC [id number] 12:00:38 Test Item Value Reference Range Interpretation Comments Glucose POC (test 138 mg/dL 70-115 H Notify RN or MDIf you code = Glucose POC) consider your patient critically ill, the Merlin-Accu Chec k Infrom II meter should not be used for Glucos e determination. Draw a venous Glucose and send to the main Lab for analysis. POC [id number] 07:41:32 Test Item Value Reference Range Interpretation Comments Glucose POC (test 206 mg/dL 70-115 H Notify RN or MDIf you code = Glucose POC) consider your patient critically ill, the Merlin-Accu Chec k Infrom II meter should not be used for Glucos e determination. Draw a venous Glucose and send to the main Lab for analysis. Urinalysis [id number] 21:07:21 Test Item Value Reference Range Interpretation Comments UA WBC (test code = UA WBC) TNTC 0-5 A UA RBC (test code = UA RBC) 6-10 0-5 A UA Bacteria (test code = UA Bacteria) Profuse A UA Squam Epithelial (test code = UA 6-10 A Squam Epithelial) Urinalysis with Culture, if [id number] 20:35:14 Test Item Value Reference Range Interpretation [...] Micro Indicated Not Indicated A Ind?) POC [id number] 19:06:34 Test Item Value Reference Range Interpretation Comments Glucose POC (test 207 mg/dL 70-115 H If you con plumbing engineer your code = Glucose POC) patient critically ill, the Merlin-Accu Check Infrom II meter should not be used for Glucose determination. Draw a venous Glucose and send to the main Lab for analysis. POC [id number] 17:12:03 Test Item Value Reference Range Interpretation Comments Glucose POC (test 173 mg/dL 70-115 H Notify RN or MDIf you code = Glucose POC) consider your patient critically ill, the Merlin-Accu Chec k Infrom II meter should not be used for Glucos e determination. Draw a venous Glucose and send to the main Lab for analysis. POC [id number] 11:58:01 Test Item Value Reference Range Interpretation Comments Glucose POC (test 289 mg/dL 70-115 H Notify RN or MDIf you code = Glucose POC) consider your patient critically ill, the Merlin-Accu Chec k Infrom II meter should not be used for Glucos e determination. Draw a venous Glucose and send to the main Lab for analysis. POC [id number] 08:19:37 Test Item Value Reference Range Interpretation Comments Glucose POC (test 201 mg/dL 70-115 H Notify RN or MDIf you code = Glucose POC) consider your patient critically ill, the Merlin-Accu Chec k Infrom II meter should not be used for Glucos e determination. Draw a venous Glucose and send to the main Lab for analysis. POC [id number] 20:37:35 Test Item Value Reference Range Interpretation Comments Glucose POC (test 272 mg/dL 70-115 H If you con plumbing engineer your code = Glucose POC) patient critically ill, the Merlin-Accu Check Infrom II meter should not be used for Glucose determination. Draw a venous Glucose and send to the main Lab for analysis. POC [id number] 17:23:05 Test Item Value Reference Range Interpretation Comments Glucose POC (test 229 mg/dL 70-115 H If you con plumbing engineer your code = Glucose POC) patient critically ill, the Merlin-Accu Check Infrom II meter should not be used for Glucose determination. Draw a venous Glucose and send to the main Lab for analysis. POC [id number] 12:01:01 Test Item Value Reference Range Interpretation Comments Glucose POC (test 155 mg/dL 70-115 H If you con plumbing engineer your code = Glucose POC) patient critically ill, the Merlin-Accu Check Infrom II meter should not be used for Glucose determination. Draw a venous Glucose and send to the main Lab for analysis. POC [id number] 08:07:32 Test Item Value Reference Range Interpretation Comments Glucose POC (test 248 mg/dL 70-115 H If you con plumbing engineer your code = Glucose POC) patient critically ill, the Merlin-Accu Check Infrom II meter should not be used for Glucose determination. Draw a venous Glucose and send to the main Lab for analysis. IG [id number] 06:50:39 Test Item Value Reference Range Interpretation Comments IG (test code = IG) 0.7 % 0.0-5.0 IG Abs (test code = IG Abs) 0 x10 N Complete Blood Count with [id number] 06:50:38 Test Item Value Reference Range Interpretation [...] code = IPF) 0 % N Automated [id number] 06:50:38 Test Item Value Reference Range Interpretation Comments Neutro Auto (test code = Neutro 50.3 % 36.0-70.0 Auto) Lymph Auto (test code = Lymph Auto) 38.6 % 12.0-44.0 [place] Auto (test code = [place] Auto) 7.3 % 0.0-11.0 Eos, Auto (test code = Eos, Auto) 2.4 % 0.0-7.0 Basophil Auto (test code = Basophil 0.7 % 0.0-2.0 Auto) Neutro Absolute (test code = Neutro 3.0 x10 1.6-7.4 Absolute) Lymph Absolute (test code = Lymph 2.28 x10 .50-4.60 Absolute) [place] Absolute (test code = [place] .43 x10 .00-1.20 Absolute) Eos Absolute (test code = Eos 0.14 x10 0.00-0.74 Absolute) Baso Absolute (test code = Baso 0.04 x10 0.00-0.21 Absolute) Basic Metabolic [id number] 05:38:20 Test Item Value Reference Range Interpretation [...] = Lipemia) 0 mg/dL 8-11 Basic Metabolic [id number] 05:38:20 Test Item Value Reference Range Interpretation [...] = 0 mg/dL 8-11 Lipemia) Basic Metabolic [id number] 05:38:20 Test Item Value Reference Range Interpretation [...] code = 0 mg/dL 8-11 Lipemia) POC [id number] 20:28:33 Test Item Value Reference Range Interpretation Comments Glucose POC (test 169 mg/dL 70-115 H If you con plumbing engineer your code = Glucose POC) patient critically ill, the Merlin-Accu Check Infrom II meter should not be used for Glucose determination. Draw a venous Glucose and send to the main Lab for analysis. POC [id number] 16:39:30 Test Item Value Reference Range Interpretation Comments Glucose POC (test 103 mg/dL 70-115 If you con plumbing engineer your code = Glucose POC) patient critically ill, the Merlin-Accu Check Infrom II meter should not be used for Glucose determination. Draw a venous Glucose and send to the main Lab for analysis. RPR [id number] 12:08:56 Test Item Value Reference Range Interpretation Comments RPR Qual (test code = RPR Qual) Non-Reactive Non-Reactive Reactive Control (test code = Reactive Reactive Control) Weak Reactive Control (test Weak Reactive code = Weak Reactive Control) Non-Reactive Control (test code Non-Reactive = Non-Reactive Control) Lot # (test code = Lot #) [id number] N Expiration Dt (test code = 03-20-2021 N Expiration Dt) POC [id number] 11:52:31 Test Item Value Reference Range Interpretation Comments Glucose POC (test 250 mg/dL 70-115 H If you con plumbing engineer your code = Glucose POC) patient critically ill, the Merlin-Accu Check Infrom II meter should not be used for Glucose determination. Draw a venous Glucose and send to the main Lab for analysis. POC [id number] 07:55:29 Test Item Value Reference Range Interpretation Comments Glucose POC (test 205 mg/dL 70-115 H If you con plumbing engineer your code = Glucose POC) patient critically ill, the Merlin-Accu Check Infrom II meter should not be used for Glucose determination. Draw a venous Glucose and send to the main Lab for analysis. Lipid [id number] 05:46:04 Test Item Value Reference Range Interpretation [...] LDL/HDL Ratio=L DL Calc/HDL Chol Thyroid Stimulating [id number] 05:46:04 Test Item Value Reference Range Interpretation Comments TSH (test code = TSH) 3.274 mcIU/mL 0.550-4.780 Hemoglobin [id number] 05:41:08 Test Item Value Reference Range Interpretation Comments Hemoglobin A1c (test code 7.6 % 4.0-5.8 H Di abetic >=6.5 = Hemoglobin A1c) %Prediabet es 5.7-6.4 %Normal <5.7 % Hepatitis B Surface [id number] 21:19:36 Test Item Value Reference Range Interpretation Comments Hep Bs Ag (test code = Hep Bs Non-Reactive Non-Reactive Ag) Novel Coronavirus SARS-CoV-2, [id number] 11:16:16 Test Item Value Reference Range Interpretation [...] Emergency Use Authorization." Novel Coronavirus (COVID-19), EMANUEL [id number] 11:11:24TNPTest not sent and performed at [facility].Rapid was perfomed in Microbiology.Wrong covid test was ord ered.Urine DOA [id number] 00:17:49 Test Item Value Reference Range Interpretation [...] Propoxyphene Confirmation wi thin 7 days. Alcohol [id number] 00:17:29 Test Item Value Reference Range Interpretation Comments Ethanol Level 9.0 mg/dL N The pharmacolo gical (test code = response to blo od alcohol Ethanol Level) levels may va ry from individual to i ndividual. The fatal omkar ntration has been report ed to be >400 mg/dl. Comprehensive Metabolic [id number] 00:17:28 Test Item Value Reference Range Interpretation [...] = Lipemia) 0 g/dL 1-2 Comprehensive Metabolic [id number] 00:17:28 Test Item Value Reference Range Interpretation [...] = 0 g/dL 1-2 Lipemia) Comprehensive Metabolic [id number] 00:17:28 Test Item Value Reference Range Interpretation [...] ag e have not been validated by [facility] MDRD study and should be interpreted [...] ag e have not been validated by [facility] MDRD study and should be interpreted [...] g/dL 1-2 Lipemia) Complete Blood Count with [id number] 23:26:28 Test Item Value Reference Range Interpretation [...] code = IPF) 0 % N Automated [id number] 23:26:28 Test Item Value Reference Range Interpretation Comments Neutro Auto (test code = Neutro 67.1 % 36.0-70.0 Auto) Lymph Auto (test code = Lymph Auto) 23.3 % 12.0-44.0 [place] Auto (test code = [place] Auto) 5.8 % 0.0-11.0 Eos, Auto (test code = Eos, Auto) 2.3 % 0.0-7.0 Basophil Auto (test code = Basophil 0.8 % 0.0-2.0 Auto) Neutro Absolute (test code = Neutro 6.0 x10 1.6-7.4 Absolute) Lymph Absolute (test code = Lymph 2.10 x10 .50-4.60 Absolute) [place] Absolute (test code = [place] .52 x10 .00-1.20 Absolute) Eos Absolute (test code = Eos 0.21 x10 0.00-0.74 Absolute) Baso Absolute (test code = Baso 0.07 x10 0.00-0.21 Absolute) IG [id number] 23:26:28 Test Item Value Reference Range Interpretation Comments IG (test code = IG) 0.7 % 0.0-5.0 IG Abs (test code = IG Abs) 0 x10 N HERPES VIRUS ANTIBODY, [id number] 21:46:00 Test Item Value Reference Range Interpretation Comments HERPES VIRUS IGM (AKER) Negative SE E ATTACHMENT (test code = 1808) BLOOD [id number] 06:00:00 Test Item Value Reference Range Interpretation Comments CULTURE (BEAKER) (test No growth in 5 days code = 1095) BLOOD [id number] 06:00:00 Test Item Value Reference Range Interpretation Comments CULTURE (BEAKER) (test No growth in 5 days code = 1095) POCT-GLUCOSE [id number] 12:11:00 Test Item Value Reference Range Interpretation Comments POC-GLUCOSE METER 154 mg/dL 70-110 H TESTED AT [place] [address] ([facility] (test code = [facility] 1538) [address] POCT-GLUCOSE [id number] 07:53:00 Test Item Value Reference Range Interpretation Comments POC-GLUCOSE METER 87 mg/dL 70-110 TESTED AT [place] [address] ([facility] (test code = [facility] [address] 1538) POCT-GLUCOSE [id number] 06:49:00 Test Item Value Reference Range Interpretation Comments POC-GLUCOSE METER 79 mg/dL 70-110 TESTED AT [place] [address] ([facility] (test code = [facility] [address] 1538) COMPREHENSIVE METABOLIC [id number] 06:15:00 Test Item Value Reference Range Interpretation Comments TOTAL PROTEIN 5.1 gm/dL 6.0-8.3 L (AKER) (test code = 770) ALBUMIN ([facility] 2.2 g/dL 3.5-5.0 L (test code = 1145) ALKALINE PHOSPHATASE 78 U/L 40-150 (AKER) (test code = 346) BILIRUBIN TOTAL 1.1 mg/dL 0.2-1.2 ([facility] (test code = 377) SODIUM (BEAKER) (test [...] S NOT APPLICABLE FOR DIALYSIS PATIEN TS. [id number] 06:11:00 Test Item Value Reference Range Interpretation Comments MAGNESIUM (BEAKER) (test code = 2.1 mg/dL 1.6-2.6 627) HEPATIC FUNCTION [id number] 06:11:00 Test Item Value Reference Range Interpretation [...] code = 513 U/L 6-55 H 347) [id number] 05:30:00 Test Item Value Reference Range Interpretation Comments FIBRINOGEN LEVEL (BEAKER) (test 368 mg/dl 225-434 code = 658) [id number] 05:30:00 Test Item Value Reference Range Interpretation Comments PARTIAL THROMBOPLASTIN TIME 42.2 seconds 22.5-36.0 H ([facility] (test code = 760) PROTHROMBIN [id number] 05:29:00 Test Item Value Reference Range Interpretation Comments PROTIME ([facility] (test code = 14.8 seconds 11.7-14.7 H 759) INR ([facility] (test code = 370) 1.2 <=5.9 RECOMMENDED COUMADIN/WARFARIN INR THERAPY RANGESSTANDARD DOSE: 2.0 - 3.0 Includes: PROPHYLAXIS forvenous thrombosis, systemic embolization; TREATMENT for venous thrombosis and/or pulmonary embolus.HIGH RISK: Target INR is 2.5-3.5 for patients with mechanical heart valves.POCT-GLUCOSE [id number] 21:09:00 Test Item Value Reference Range Interpretation Comments POC-GLUCOSE METER 178 mg/dL 70-110 H TESTED AT [place] [address] ([facility] (test code = [facility] 1538) [address] POCT-GLUCOSE [id number] 17:18:00 Test Item Value Reference Range Interpretation Comments POC-GLUCOSE METER 178 mg/dL 70-110 H TESTED AT [place] [address] ([facility] (test code = [facility] 1538) [address] POCT-GLUCOSE [id number] 13:48:00 Test Item Value Reference Range Interpretation Comments POC-GLUCOSE METER 150 mg/dL 70-110 H TESTED AT [place] [address] ([facility] (test code = [facility] 1538) [address] FACTOR 5 ACTIVITY (BLEEDING RISK)2017-01-06 10:04:00 Test Item Value Reference Range Interpretation Comments FACTOR V ACTIVITY ([facility] (test code 90.0 % 60.0-150.0 = 665) Effective 10/24/2013: Reference Range Change-Adult onlyNew: 60.0-150.0 Previous: 50.0-150.0CYTOMEGALOVIRUS ANTIBODY, [id number] 09:42:00 Test Item Value Reference Range Interpretation Comments CYTOMEGALOVIRUS IGM ANTIBODY Negative ([facility] (test code = 816) HERPES VIRUS ANTIBODY, [id number] 08:59:00 Test Item Value Reference Range Interpretation Comments 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=DENZEL G 1807) CYTOMEGALOVIRUS ANTIBODY, [id number] 08:59:00 Test Item Value Reference Range Interpretation Comments CYTOMEGALOVIRUS IGG ANTIBODY Positive (BEAKER) (test code = 790) EBV-VCA ANTIBODY, [id number] 08:59:00 Test Item Value Reference Range Interpretation Comments JASE-WALL VCA IGG (BEAKER) (test Positive code = 983) EBV-VCA ANTIBODY, [id number] 08:59:00 Test Item Value Reference Range Interpretation Comments JASE-WALL VCA IGM (BEAKER) (test Negative code = 984) POCT-GLUCOSE [id number] 07:59:00 Test Item Value Reference Range Interpretation Comments POC-GLUCOSE METER 81 mg/dL 70-110 TESTED AT [facility] 6720 (BEAKER) (test code = [place] [address] 1538) COMPREHENSIVE METABOLIC [id number] 06:23:00 Test Item Value Reference Range Interpretation [...] S NOT APPLICABLE FOR DIALYSIS PATIEN TS. [id number] 06:17:00 Test Item Value Reference Range Interpretation Comments MAGNESIUM (BEAKER) (test code = 1.8 mg/dL 1.6-2.6 627) HEPATIC FUNCTION [id number] 06:17:00 Test Item Value Reference Range Interpretation [...] code = 779 U/L 6-55 H 347) [id number] 06:00:00 Test Item Value Reference Range Interpretation Comments FIBRINOGEN LEVEL (BEAKER) (test 390 mg/dl 225-434 code = 658) [id number] 06:00:00 Test Item Value Reference Range Interpretation Comments PARTIAL THROMBOPLASTIN TIME 40.2 seconds 22.5-36.0 H (BEAKER) (test code = 760) PROTHROMBIN [id number] 05:59:00 Test Item Value Reference Range Interpretation Comments PROTIME (BEAKER) (test code = 14.6 seconds 11.7-14.7 759) INR (BEAKER) (test code = 370) 1.2 <=5.9 RECOMMENDED COUMADIN/WARFARIN INR THERAPY RANGESSTANDARD DOSE: 2.0 - 3.0 Includes: PROPHYLAXIS forvenous thrombosis, systemic embolization; TREATMENT for venous thrombosis and/or pulmonary embolus.HIGH RISK: Target INR is 2.5-3.5 for patients with mechanical heart valves.POCT-GLUCOSE [id number] 21:46:00 Test Item Value Reference Range Interpretation Comments POC-GLUCOSE METER 153 mg/dL 70-110 H TESTED AT [place] [address] ([facility] (test code = [facility] 1538) [address] POCT-GLUCOSE [id number] 18:47:00 Test Item Value Reference Range Interpretation Comments POC-GLUCOSE METER 181 mg/dL 70-110 H TESTED AT [place] [address] ([facility] (test code = [facility] 1538) [id number] POCT-GLUCOSE [id number] 12:40:00 Test Item Value Reference Range Interpretation Comments POC-GLUCOSE METER 178 mg/dL 70-110 H TESTED AT [place] [address] ([facility] (test code = [facility] 1538) [address] POCT-GLUCOSE [id number] 07:51:00 Test Item Value Reference Range Interpretation Comments POC-GLUCOSE METER 166 mg/dL 70-110 H TESTED AT [place] [address] ([facility] (test code = [facility] 1538) [id number] COMPREHENSIVE METABOLIC [id number] 03:26:00 Test Item Value Reference Range Interpretation Comments TOTAL PROTEIN 5.2 gm/dL 6.0-8.3 L ([facility] (test code = 770) ALBUMIN (BEAKER) 2.3 [...] S NOT APPLICABLE FOR DIALYSIS PATIEN TS. [id number] 03:22:00 Test Item Value Reference Range Interpretation Comments MAGNESIUM (BEAKER) (test code = 1.4 mg/dL 1.6-2.6 L 627) HEPATIC FUNCTION [id number] 03:22:00 Test Item Value Reference Range Interpretation [...] code = 1009 U/L 6-55 H 347) [id number] 03:12:00 Test Item Value Reference Range Interpretation Comments AMMONIA (BEAKER) (test code = 348) 29 mol/L 18-72 [id number] 03:10:00 Test Item Value Reference Range Interpretation Comments PARTIAL THROMBOPLASTIN TIME 42.3 seconds 22.5-36.0 H (BEAKER) (test code = 760) PROTHROMBIN [id number] 03:09:00 Test Item Value Reference Range Interpretation Comments PROTIME (BEAKER) (test code = 16.4 seconds 11.7-14.7 H 759) INR (BEAKER) (test code = 370) 1.3 <=5.9 RECOMMENDED COUMADIN/WARFARIN INR THERAPY RANGESSTANDARD DOSE: 2.0 - 3.0 Includes: PROPHYLAXIS forvenous thrombosis, systemic embolization; TREATMENT for venous thrombosis and/or pulmonary embolus.HIGH RISK: Target INR is 2.5-3.5 for patients with mechanical heart valves.[id number] 03:09:00 Test Item Value Reference Range Interpretation Comments FIBRINOGEN LEVEL (BEAKER) (test 413 mg/dl 225-434 code = 658) CBC W/PLT COUNT & AUTO [id number] 03:09:00 Test Item Value Reference Range Interpretation [...] L 0.00-0.20 (test code = 417) 0.00POCT-GLUCOSE [id number] 22:33:00 Test Item Value Reference Range Interpretation Comments POC-GLUCOSE METER 230 mg/dL 70-110 H TESTED AT [place] [address] ([facility] [place]) (test code = [facility] 1538) [address] POCT-GLUCOSE [id number] 18:17:00 Test Item Value Reference Range Interpretation Comments POC-GLUCOSE METER 222 mg/dL 70-110 H TESTED AT [place] [address] ([facility] (test code = [facility] 1538) [id number] COMPREHENSIVE METABOLIC [id number] 16:59:00 Test Item Value Reference Range Interpretation [...] PATIEN TS. PERIPHERAL BLOOD SMEAR - PATHOLOGIST [id number] 15:30:00 Test Item Value Reference Range Interpretation Comments RBC MORPHOLOGY Polychromasia (BEAKER) (test code = 2846) RBC MORPHOLOGY Anisocytosis (BEAKER) (test code = 91107) PERIPHERAL SMR REVIEW Cell counts confirmed (BEAKER) (test code = 2640) [id number] Josefina Lara M.D. (BEAKER) (test code = (electronic signature) 7002) PROTHROMBIN [id number] 15:12:00 Test Item Value Reference Range Interpretation [...] Negative Negative (test code = 418) POCT-GLUCOSE [id number] 12:47:00 Test Item Value Reference Range Interpretation Comments POC-GLUCOSE METER 212 mg/dL 70-110 H TESTED AT [facility] 67[address] ([facility] (test code = [place] 1538) [address] [id number] 12:34:00 Test Item Value Reference Range Interpretation Comments RPR SCREEN ([facility] (test code = Nonreactive Nonreactive 420) CLOSTRIDIUM DIFFICILE TOXIN [id number] 10:12:00 Test Item Value Reference Range Interpretation Comments CLOSTRIDIUM DIFFICILE TOXIN, PCR Not Detected Not Detected (ILIANA) (test code = 1525) This qualitative real-time [...] Reference Range Change-Adult onlyNew: 60.0-150.0 Previous: 50.0-150.0POCT-GLUCOSE [id number] 06:40:00 Test Item Value Reference Range Interpretation Comments POC-GLUCOSE METER 167 mg/dL 70-110 H TESTED AT [facility] 67[address] (BEAKER) (test code = [place] 1538) [address] COMPREHENSIVE METABOLIC [id number] 04:08:00 Test Item Value Reference Range Interpretation [...] ESTIM ATED GFR. Specimen slightly ictericHEPATIC FUNCTION [id number] 04:06:00 Test Item Value Reference Range Interpretation [...] 1091 U/L 6-55 H 347) Specimen slightly [id number] 04:01:00 Test Item Value Reference Range Interpretation Comments FIBRINOGEN LEVEL (BEAKER) (test 379 mg/dl 225-434 code = 658) [id number] 04:01:00 Test Item Value Reference Range Interpretation Comments PARTIAL THROMBOPLASTIN TIME 40.7 seconds 22.5-36.0 H (BEAKER) (test code = 760) PROTHROMBIN [id number] 04:00:00 Test Item Value Reference Range Interpretation [...] L 0.00-0.20 (test code = 417) 0.00POCT-GLUCOSE [id number] 00:19:00 Test Item Value Reference Range Interpretation Comments POC-GLUCOSE METER 159 mg/dL 70-110 H TESTED AT [place] [address] ([facility] (test code = [place] [facility] 1538) [address] POCT-GLUCOSE [id number] 18:56:00 Test Item Value Reference Range Interpretation Comments POC-GLUCOSE METER 192 mg/dL 70-110 H TESTED AT [facility] 67[address] ([facility] (test code = [place] [facility] 1538) [address] COMPREHENSIVE METABOLIC [id number] 16:55:00 Test Item Value Reference Range Interpretation [...] CALCULATE ESTIM ATED GFR. Specimen slightly ictericPROTHROMBIN [id number] 16:37:00 Test Item Value Reference Range Interpretation Comments PROTIME (BEAKER) (test code = 20.9 seconds 11.7-14.7 H 759) INR (BEAKER) (test code = 370) 1.8 <=5.9 RECOMMENDED COUMADIN/WARFARIN INR THERAPY RANGESSTANDARD DOSE: 2.0 - 3.0 Includes: PROPHYLAXIS forvenous thrombosis, systemic embolization; TREATMENT for venous thrombosis and/or pulmonary embolus.HIGH RISK: Target INR is 2.5-3.5 for patients with mechanical heart valves.HEPATITIS B SURFACE [id number] 14:05:00 Test Item Value Reference Range Interpretation Comments HEPATITIS B SURFACE ANTIBODY < mIU/mL <8.0 (BEAKER) (test code = 647) HEPATITIS B CORE ANTIBODY, [id number] 13:43:00 Test Item Value Reference Range Interpretation Comments HEPATITIS B CORE TOTAL ANTIBODY Nonreactive Nonreactive (BEAKER) (test code = 497) BLOOD GAS, [id number] 13:35:00 Test Item Value Reference Range Interpretation [...] code = 1819) 28.0 % URINALYSIS W/ [id number] 13:16:00 Test Item Value Reference Range Interpretation [...] 1584) SOURCE(BEAKER) (test code = Urine, [place] 0157) VITAMIN D, [id number] 13:14:00 Test Item Value Reference Range Interpretation Comments VITAMIN D 25-OH (BEAKER) (test code = < ng/mL 13.0-47.8 L 2764) ALPHA FETOPROTEIN (AFP), TUMOR [id number] 13:06:00 Test Item Value Reference Range Interpretation Comments ALPHA-FETOPROTEIN (BEAKER) (test code < ng/mL <10.0 = 1094) Effective 05/08/2014: Reference Range ChangeNew: <10.0 Previous: 0.0-8.0 HEMOGLOBIN [id number] 13:05:00 Test Item Value Reference Range Interpretation Comments HEMOGLOBIN A1C (BEAKER) (test code = 7.6 % 4.3-6.1 H 368) CARCINOEMBRYONIC ANTIGEN (CEA)2017-01-03 12:59:00 Test Item Value Reference Range Interpretation Comments CARCINOEMBRYONIC ANTIGEN (BEAKER) 2.0 ng/mL 0.0-5.0 (test code = 685) [id number] 12:59:00 Test Item Value Reference Range Interpretation Comments FERRITIN (BEAKER) (test code = 1841 ng/mL 5-275 H 361) Effective 05/08/2014: Reference Range ChangeNew: Male 5-275 Previous: Male 22-322 Female 5-275 Female [id number] 12:58:00 Test Item Value Reference Range Interpretation Comments T4 TOTAL (BEAKER) (test code = 895) 4.5 ug/dL 4.9-11.7 L [id number] 12:58:00 Test Item Value Reference Range Interpretation Comments THYROID STIMULATING HORMONE 1.79 uIU/mL 0.35-4.94 (BEAKER) (test code = 772) [id number] 12:58:00 Test Item Value Reference Range Interpretation Comments T3 TOTAL (BEAKER) (test code = 656) 34 ng/dL 48-159 L Effective 05/08/2014: Reference Range ChangeNew: 48-159 Previous: 60-181 CALCIUM, [id number] 12:47:00 Test Item Value Reference Range Interpretation Comments CALCIUM IONIZED (BEAKER) (test 1.05 mmol/L 1.12-1.27 L code = 698) PH, BLOOD (BEAKER) (test code = 7.43 1810) [id number] 12:42:00 Test Item Value Reference Range Interpretation [...] % 20-55 (test code = 2590) URIC [id number] 12:40:00 Test Item Value Reference Range Interpretation Comments URIC ACID (BEAKER) (test code = 16.0 mg/dL 2.6-7.2 H 773) Specimen slightly ictericLIPID [id number] 12:40:00 Test Item Value Reference Range Interpretation [...] 160-189 Very High >=190 Specimen slightly ictericBILIRUBIN, [id number] 12:40:00 Test Item Value Reference Range Interpretation Comments BILIRUBIN DIRECT (BEAKER) (test 2.4 mg/dL 0.1-0.5 H code = 706) GAMMA GLUTAMYL TRANSFERASE (GGT)2017-01-03 12:40:00 Test Item Value Reference Range Interpretation Comments GAMMA GLUTAMYL TRANSFERASE (MADIE) 53 U/L 9-64 (test code = 364) Specimen slightly [id number] 12:39:00 Test Item Value Reference Range Interpretation Comments ETHANOL (CHANDNIAKER) (test code = 400) < mg/dL <=10 SCREEN, [id number] 12:36:00 Test Item Value Reference Range Interpretation Comments TEST URINE (MADIE) (test Negative code = 583) POCT-GLUCOSE [id number] 12:34:00 Test Item Value Reference Range Interpretation Comments POC-GLUCOSE METER 189 mg/dL 70-110 H TESTED AT [facility] 67[address] ([facility] (test code = [place] 1538) [address] HIV-1 ANTIGEN WITH HIV-1/2 [id number] 11:58:00 Test Item Value Reference Range Interpretation Comments HIV-1 ANTIGEN WITH HIV 1\\T\\2 Nonreactive Nonreactive ANTIBODY (2) ([facility] (test code = 2586) TROPONIN [id number] 09:44:00 Test Item Value Reference Range Interpretation [...] H (test code = 380) CREATINE KINASE-MB (AKER) (test 5.6 ng/mL 0.0-6.6 code = 750) CREATINE KINASE-MB INDEX (AKER) 1.9 % (test code = 395) Effective 05/08/2014: CK-MB Reference Range ChangeNew: 0.0-6.6 Previous: 0.0-4.9CK-MB Reference Range:<6.7 Normal6.7-10.0 Borderline>10.0 AbnormalACETAMINOPHEN [id number] 08:31:00 Test Item Value Reference Range Interpretation Comments ACETAMINOPHEN LEVEL (BEAKER) (test < ug/mL 10.0-30.0 L code = 344) TROPONIN [id number] 05:53:00 Test Item Value Reference Range Interpretation [...] acute neurological disease, and persistent tachyarrhythmia.BASIC METABOLIC [id number] 05:53:00 Test Item Value Reference Range Interpretation [...] TO CALCULA TE ESTIMATED GFR. Specimen slightly [id number] 05:52:00 Test Item Value Reference Range Interpretation Comments PHOSPHORUS (BEAKER) (test code = 5.7 mg/dL 2.3-4.7 H 604) HEPATIC FUNCTION [id number] 05:52:00 Test Item Value Reference Range Interpretation [...] Specimen slightly ictericCREATINE KINASE (CK), TOTAL AND [id number] 05:52:00 Test Item Value Reference Range Interpretation Comments CREATINE KINASE TOTAL (BEAKER) 341 U/L 29-200 H (test code = 380) CREATINE KINASE-MB (BEAKER) (test 5.4 ng/mL 0.0-6.6 code = 750) CREATINE KINASE-MB INDEX (BEAKER) 1.6 % (test code = 395) Effective 05/08/2014: CK-MB Reference Range ChangeNew: 0.0-6.6 Previous: 0.0-4.9CK-MB Reference Range:<6.7 Normal6.7-10.0 Borderline>10.0 AbnormalCBC W/PLT COUNT & AUTO [id number] 05:48:00 Test Item Value Reference Range Interpretation [...] K/ L 0.00-0.20 (test code = 417) [id number] 05:09:00 Test Item Value Reference Range Interpretation Comments FIBRINOGEN LEVEL (BEAKER) (test 427 mg/dl 225-434 code = 658) [id number] 05:09:00 Test Item Value Reference Range Interpretation Comments PARTIAL THROMBOPLASTIN TIME 36.2 seconds 22.5-36.0 H (BEAKER) (test code = 760) PROTHROMBIN [id number] 05:08:00 Test Item Value Reference Range Interpretation Comments PROTIME (BEAKER) (test code = 22.8 seconds 11.7-14.7 H 759) INR (BEAKER) (test code = 370) 2.0 <=5.9 RECOMMENDED COUMADIN/WARFARIN INR THERAPY RANGESSTANDARD DOSE: 2.0 - 3.0 Includes: PROPHYLAXIS forvenous thrombosis, systemic embolization; TREATMENT for venous thrombosis and/or pulmonary embolus.HIGH RISK: Target INR is 2.5-3.5 for patients with mechanical heart valves.HEPATITIS PANEL, [id number] 03:40:00 Test Item Value Reference Range Interpretation Comments HEPATITIS A IGM ANTIBODY (BEAKER) Nonreactive Nonreactive (test code = 498) HEPATITIS B CORE IGM ANTIBODY Nonreactive Nonreactive (BEAKER) (test code = 645) HEPATITIS C ANTIBODY (BEAKER) Nonreactive Nonreactive (test code = 367) HEPATITIS B SURFACE ANTIGEN (2) Nonreactive Nonreactive (BEAKER) (test code = 2585) CREATININE, RANDOM [id number] 03:18:00 Test Item Value Reference Range Interpretation Comments CREATININE URINE (BEAKER) (test 118.7 mg/dL code = 375) Reference Range: No NormalsSODIUM, RANDOM [id number] 03:18:00 Test Item Value Reference Range Interpretation Comments SODIUM URINE (BEAKER) (test code = 60 meq/L 243) Reference Range: No NormalsUREA NITROGEN, RANDOM [id number] 03:18:00 Test Item Value Reference Range Interpretation Comments UREA NITROGEN URINE (BEAKER) (test 303 mg/dL code = 538) Reference Range: No [id number] 03:07:00 Test Item Value Reference Range Interpretation Comments AMMONIA (BEAKER) (test code = 348) 48 mol/L 18-72 [id number] 02:57:00 Test Item Value Reference Range Interpretation [...] within 95-100% range. URINALYSIS W/ REFLEX URINE [id number] 02:53:00 Test Item Value Reference Range Interpretation [...] /LPF = 514) SOURCE(BEAKER) (test code = 0825) [id number] 02:49:00 Test Item Value Reference Range Interpretation Comments PARTIAL THROMBOPLASTIN TIME 39.4 seconds 22.5-36.0 H (BEAKER) (test code = 760) PROTHROMBIN [id number] 02:48:00 Test Item Value Reference Range Interpretation Comments PROTIME (BEAKER) (test code = 22.0 seconds 11.7-14.7 H 759) INR (BEAKER) (test code = 370) 1.9 <=5.9 RECOMMENDED COUMADIN/WARFARIN INR THERAPY RANGESSTANDARD DOSE: 2.0 - 3.0 Includes: PROPHYLAXIS forvenous thrombosis, systemic embolization; TREATMENT for venous thrombosis and/or pulmonary embolus.HIGH RISK: Target INR is 2.5-3.5 for patients with mechanical heart valves.[id number] 02:48:00 Test Item Value Reference Range Interpretation Comments FIBRINOGEN LEVEL (BEAKER) (test 421 mg/dl 225-434 code = 658) BLOOD GAS, [id number] 02:43:00 Test Item Value Reference Range Interpretation [...] 21.0 % CBC W/PLT COUNT & AUTO [id number] 02:43:00 Test Item Value Reference Range Interpretation [...] code = 417) 0.00LACTIC ACID, VENOUS, WHOLE [id number] 02:35:00 Test Item Value Reference Range Interpretation Comments LACTATE BLOOD VENOUS (2) (BEAKER) 0.8 mmol/L 0.5-2.2 (test code = 2872) Effective 10/23/2015: Units/Reference Range ChangeNew: 0.5-2.2 mmol/L Previous: 5-20 mg/dLSpecimen slightly icteric
[2020-12-30 09:23] LABS: Absolute Lymphocytes (CBC) 1.2 K/uL (0.7-4.9); Basophils % 0.4 % (0-1.3); Hematocrit 26.6 % (36.0-45.0); Lymphocytes % 21.6 % (15.3-44.8); MPV 10.6 fL (7.6-11.3)
[2020-12-30] MEDS ORDERED: METOCLOPRAMIDE 10 MG/2mL INJ ONE (09:41)
[2020-12-30] MEDS ORDERED: ONDANSETRON 4 MG/2 ML VIAL ONE (09:41)
[2020-12-30] MEDS ORDERED: MEPERIDINE HCL 50 MG/ML ONE (09:41)
[2020-12-30] MEDS ORDERED: NA CHLORIDE 0.9% 50 ML ONE (09:41)
[2020-12-30 09:44] LABS: Albumin 3.5 g/dL (3.4-5.0); Bilirubin Direct 0.2 mg/dL (0-0.2); Bilirubin Total 0.7 mg/dL (0.2-1.0); Potassium 4.2 mmol/L (3.5-5.1)
--- NOTE | 2020-12-30 10:10 | ER ---
Nurse's Notes [facility] Name: Cathi Zaldivar Age: 40 yrs Sex: Female : 1980 Arrival Date: 12/30/2020 Time: 08:40 Bed 15 Private MD: Diagnosis: Gastroparesis;End stage renal disease;Vomiting, unspecified Presentation: 12/30 08:57 Chief complaint: Patient states: "gastroporesis" pt states she was at dialysis and tr6 began having abdominal pain. Coronavirus screen: At this time, unable to obtain information related to travel outside the [place] Ebola Screen: No symptoms or risks identified at this time. Initial Sepsis Screen: Does the patient meet any 2 criteria? No. Patient's initial sepsis screen is negative. Does the patient have a suspected source of infection? No. Patient's initial sepsis screen is negative. Risk Assessment: Do you want to hurt yourself or someone else? Patient reports no desire to harm self or others. Onset of symptoms was December 30, 2020. 08:57 Method Of Arrival: Wheelchair tr6 08:57 Acuity: JESSICA 3 tr6 Triage Assessment: 08:58 General: Appears distressed, uncomfortable, unkempt, Behavior is crying. Pain: tr6 Complains of pain in abdomen. EENT: No deficits noted. Neuro: No deficits noted. Cardiovascular: No deficits noted. Respiratory: No deficits noted. GI: Abdomen is flat. : No deficits noted. Derm: No deficits noted. Musculoskeletal: No deficits noted. Historical: - Allergies: 08:58 ambien; tr6 08:58 Codeine; tr6 08:58 GUAIFENESIN; tr6 08:58 Ibuprofen; tr6 08:58 Lisinopril; tr6 08:58 Morphine; tr6 08:58 PENICILLINS; tr6 08:58 zolpidem tartrate; tr6 08:58 Prolixin; tr6 08:58 Nitrofurantoin Macrocrystal; tr6 - Home Meds: 08:58 divalproex 500 mg Oral tab 2 times per day [Active]; doxazosin 4 mg Oral tab [Active]; tr6 hydralazine 50 mg Oral tab [Active]; metoprolol tartrate 25 mg Oral tab 1 tab 2 times per day [Active]; gabapentin 100 mg Oral cap as needed [Active]; Lantus 100 unit/mL Sub-Q tab as needed [Active]; Novolog 100 unit/mL Sub-Q tab [Active]; sertraline 100 mg Oral tab [Active]; tramadol 50 mg Oral tab 1 tab PRN [Active]; pravastatin Oral [Active]; - PMHx: 08:58 "mental problems"; CHF; chronic kidney disease; cyclic vomiting syndrome; Diabetes - tr6 NIDDM; Dialysis; m-w-f; ENCEPHALOPATHY; Gastroparesis; HD-TTHSat; Hypertension; liver failure; PERIPHERAL NEUROPATHY; Seizures; ibs; covid 19; gastroporesis; - Immunization history:: Adult Immunizations up to date, Client reports having NOT received the Covid vaccine. - Social history:: Smoking status: unknown. - Family history:: not pertinent. - Hospitalizations: : No recent hospitalization is reported. Screenin:00 Abuse screen: Denies threats or abuse. Denies injuries from another. Nutritional tr6 screening: No deficits noted. Tuberculosis screening: No symptoms or risk factors identified. Fall Risk None identified. Assessment: 09:48 General: Appears. tr6 09:49 GI: Bowel sounds present X 4 quads. Abdomen is tender to palpation. tr6 10:20 Reassessment: Patient states feeling better. Patient states symptoms have improved. tr6 Vital Signs: 09:49 BP 175 / 84; Pulse 76; Resp 18; Temp 97.8(O); Pulse Ox 97% on 2 lpm NC; tr6 ED Course: 08:40 Patient arrived in ED. mr 08:44 Dinesh Stallworth MD is Attending Physician. rn 08:57 Micheline Meyers RN is Primary Nurse. tr6 08:58 Triage completed. tr6 08:58 Arm band placed on right wrist. tr6 09:00 Patient has correct armband on for positive identification. Fall risk band placed. Bed tr6 in low position. Call light in reach. Side rails up X 1. Pulse ox on. NIBP on. Door closed. Noise minimized. Visitors limited. Lights dimmed. Moved to private room. Diet: Patient is NPO. 09:00 No provider procedures requiring assistance completed. tr6 09:10 Inserted saline lock: 20 gauge in left EJ, using aseptic technique. Blood collected. bp 10:21 IV discontinued, intact, bleeding controlled, No redness/swelling at site. Pressure tr6 dressing applied. Administered Medications: 09:22 Drug: Zofran (Ondansetron) 4 mg Route: IVP; Site: Other; tr6 10:21 Follow up: Response: No adverse reaction tr6 09:22 Drug: Reglan (metoCLOPramide) 10 mg Route: IVP; Site: Other; tr6 10:21 Follow up: Response: No adverse reaction tr6 09:23 Drug: Demerol (meperidine) 50 mg Route: IVP; Site: Other; tr6 10:21 Follow up: Response: No adverse reaction tr6 Outcome: 10:09 Discharge ordered by . rn 10:20 Discharged to home via wheelchair. tr6 10:20 Condition: good 10:20 Discharge instructions given to patient, Instructed on discharge instructions, follow up and referral plans. Demonstrated understanding of instructions, follow-up care. 10:27 Patient left the ED. tr6 Signatures: Adela Reyes Roman, MD MD rn Peltier, Brian, RN RN bp Ramnanan, Tiffany, RN RN tr6
--- NOTE | 2020-12-30 10:10 | EDPHYS ---
Physician Documentation [facility] Name: Cathi Zaldivar Age: 40 yrs Sex: Female : 1980 Arrival Date: 12/30/2020 Time: 08:40 Bed 15 Private MD: ED Physician Dinesh Stallworth HPI: 12/30 09:31 This 40 yrs old Female presents to ER via Wheelchair with complaints of rn Abdominal Pain. 09:31 The patient presents with abdominal pain in the epigastric area. rn 09:31 Onset: The symptoms/episode began/occurred this morning. The symptoms do not radiate. rn Associated signs and symptoms: Pertinent positives: nausea and vomiting, Pertinent negatives: blood in stools, chest pain, fever, shortness of breath, vomiting blood. The symptoms are described as achy, crampy. Modifying factors: The symptoms are alleviated by nothing, the symptoms are aggravated by touching the area. Severity of pain: At its worst the pain was moderate in the emergency department the pain is unchanged. The patient has experienced similar episodes in the past. The patient has been recently seen by a physician:. Reports abd pain, epigastric, began this AM, similar to gastroparesis in past, no fever, no trauma. Reports is setup for gastric stimulator soon, is seeing GI in [place] for this. Reports completed 2.5 hours of dialysis this AM, and told by dialysis to come here if still didn't feel well. . Historical: - Allergies: 08:58 ambien; tr6 08:58 Codeine; tr6 08:58 GUAIFENESIN; tr6 08:58 Ibuprofen; tr6 08:58 Lisinopril; tr6 08:58 Morphine; tr6 08:58 PENICILLINS; tr6 08:58 zolpidem tartrate; tr6 08:58 Prolixin; tr6 08:58 Nitrofurantoin Macrocrystal; tr6 - Home Meds: 08:58 divalproex 500 mg Oral tab 2 times per day [Active]; doxazosin 4 mg Oral tab [Active]; tr6 hydralazine 50 mg Oral tab [Active]; metoprolol tartrate 25 mg Oral tab 1 tab 2 times per day [Active]; gabapentin 100 mg Oral cap as needed [Active]; Lantus 100 unit/mL Sub-Q tab as needed [Active]; Novolog 100 unit/mL Sub-Q tab [Active]; sertraline 100 mg Oral tab [Active]; tramadol 50 mg Oral tab 1 tab PRN [Active]; pravastatin Oral [Active]; - PMHx: 08:58 "mental problems"; CHF; chronic kidney disease; cyclic vomiting syndrome; Diabetes - tr6 NIDDM; Dialysis; m-w-f; ENCEPHALOPATHY; Gastroparesis; HD-TTHSat; Hypertension; liver failure; PERIPHERAL NEUROPATHY; Seizures; ibs; covid 19; gastroporesis; - Immunization history:: Adult Immunizations up to date, Client reports having NOT received the Covid vaccine. - Social history:: Smoking status: unknown. - Family history:: not pertinent. - Hospitalizations: : No recent hospitalization is reported. ROS: 09:31 Constitutional: Negative for fever, chills, and weight loss, Eyes: Negative for injury, rn pain, redness, and discharge, Neck: Negative for injury, pain, and swelling, Cardiovascular: Negative for chest pain, palpitations, and edema, Respiratory: Negative for shortness of breath, cough, wheezing, and pleuritic chest pain, Abdomen/GI: + upper abd pain and nausea/vomiting. Back: Negative for injury and pain, : Negative for injury, bleeding, discharge, and swelling, MS/Extremity: Negative for injury and deformity, Skin: Negative for injury, rash, and discoloration, Neuro: Negative for headache, weakness, numbness, tingling, and seizure. 09:31 All other systems are negative. rn Exam: 09:31 Constitutional: This is a well developed, well nourished patient who is awake, alert, rn laying on right side, seems in pain Head/Face: Normocephalic, atraumatic. ENT: MMM Cardiovascular: Tachycardic, regular. No pulse deficits. Respiratory: + hyperventilating, speaking full sentences. Abdomen/GI: soft, + epigastric tenderness, no rebound Skin: Warm, dry MS/ Extremity: Pulses equal, no cyanosis. Neuro: Awake and alert, GCS 15 Vital Signs: 09:49 BP 175 / 84; Pulse 76; Resp 18; Temp 97.8(O); Pulse Ox 97% on 2 lpm NC; tr6 MDM: 08:44 Patient medically screened. rn 10:07 Differential diagnosis: gastritis, gastroesophageal reflux disease, non-specific abd rn pain, pancreatitis, Peptic Ulcer Disease. Data reviewed: vital signs, nurses notes, old medical records, lab test result(s), and as a result, I will discharge patient. Counseling: I had a detailed discussion with the patient and/or guardian regarding: the historical points, exam findings, and any diagnostic results supporting the discharge/admit diagnosis, lab results, the need for outpatient follow up, to return to the emergency department if symptoms worsen or persist or if there are any questions or concerns that arise at home. Response to treatment: the patient's symptoms have markedly improved after treatment, and as a result, I will discharge patient. Special discussion: Based on the patient's Hx, exam, and Dx evaluation, there is no indication for emergent surgery or inpatient Tx. It is understood by the patient/guardian that if the Sx's persist or worsen they need to return immediately for re-evaluation. I discussed with the patient/guardian in detail that at this point there is no indication for admission to the hospital. It is understood, however, that if the symptoms persist or worsen the patient needs to return immediately for re-evaluation. ED course: Pt feels much better, BP improved, normal lipase and LFTs, will dc home with return precautions. . 07 08:56 Order name: Basic Metabolic Panel rn 12/30 08:56 Order name: CBC with Diff rn 12/30 08:56 Order name: Hepatic Function rn 12/30 08:56 Order name: Lipase rn 12/30 08:56 Order name: IV Saline Lock; Complete Time: 09:13 rn 12/30 08:56 Order name: Labs collected and sent; Complete Time: 09:13 rn Administered Medications: 09:22 Drug: Zofran (Ondansetron) 4 mg Route: IVP; Site: Other; tr6 10:21 Follow up: Response: No adverse reaction tr6 09:22 Drug: Reglan (metoCLOPramide) 10 mg Route: IVP; Site: Other; tr6 10:21 Follow up: Response: No adverse reaction tr6 09:23 Drug: Demerol (meperidine) 50 mg Route: IVP; Site: Other; tr6 10:21 Follow up: Response: No adverse reaction tr6 Disposition Summary: 12/30/20 10:09 Discharge Ordered Location: Home rn Problem: an acute exacerbation rn Symptoms: have improved rn Condition: Stable rn Diagnosis - Gastroparesis rn - End stage renal disease rn - Vomiting, unspecified rn Followup: rn - With: Private Physician - When: As needed - Reason: Recheck today's complaints, Re-evaluation by your physician Discharge Instructions: - Discharge Summary Sheet rn - Nausea and Vomiting, Adult rn - End-Stage Kidney Disease rn - Gastroparesis rn Forms: - Medication Reconciliation Form rn - Thank You Letter rn - Antibiotic test and turn up technician - Prescription Opioid Use rn Signatures: Dispatcher [employer] EDDinesh Hoffmann MD MD rn Ramnanan, Tiffany, RN RN tr6
[2020-12-30 10:37] VITALS: BP 175/84; TEMP 97.8; O2SAT 97
[2020-12-30 10:39] LABS: Anisocytosis 2+; Blood Morphology Comment NOTED (NOT SEEN); Platelet Estimate DECR; White Blood Cell Scan OK (OK)
== END 2020-12-30 10:27 | disposition home or self-care (01) ==
LOC: ER 08:36
DX: E11.43 Type 2 diabetes mellitus with diabetic autonomic (poly)neuropathy (principal); K31.84 Gastroparesis; Z79.4 Long term (current) use of insulin; E11.22 Type 2 diabetes mellitus with diabetic chronic kidney disease; I13.2 Hypertensive heart and chronic kidney disease with heart failure and with stage 5 chronic kidney disease, or end stage renal disease; I50.9 Heart failure, unspecified; N18.6 End stage renal disease; Z99.2 Dependence on renal dialysis; Z88.0 Allergy status to penicillin; Z88.5 Allergy status to narcotic agent; Z88.6 Allergy status to analgesic agent; Z88.8 Allergy status to other drugs, medicaments and biological substances
CPT/HCPCS: 85025; 80048; 36415; 80076; 83690; 96375; 96374; 99284; J2765; J2175; J2405

== ENCOUNTER 2021-01-15 05:31 | Inpatient (IN) | payer OTHER ==
--- OUTSIDE RECORDS SUMMARY | 2021-01-15 05:36 | XMS REPORT | Continuity of Care Document ---
:1980 Author Organization [facility] t Address [address] [place] [address] Care Team Providers Name Role Phone Sharpless [...] Expiration Date S karla MEDICARE PART A [id number] 2014 2024 AND B 00:00:00 00:00:00 Problems Condition Condition Condition Status Onset Resolution Last Treating Co mments Source Name Details Category Date Date Treatment Clinician Date Liver Liver Disease Active [facility] failure[facility] (acute SAN[facility]UANA (acute Disease Active [facility] kidney kidney 7-16 [facility] - injury) injury) 00:[facility]: [facility] 00 [facility] CKD CKD Disease Active [facility] (chronic (chronic 01-03 [facility] - kidney kidney 00:00: Medical disease) disease) 00 Center Acute Acute Disease Active [facility] encephalop encephalop 01-03 Pati kes - athy athy 00:00: [facility] 00 [facility] Ulcer of Ulcer of Disease [facility] toe of toe of 01[facility] - left foot left foot 00:00: [facility] 00 [facility] Peripheral Peripheral Disease Active [facility] neuropathy neuropathy 01-03 Pati kes - 00:00: Medical 00 [facility] Hyperglyce Hyperglyce Disease Active [facility] 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 01-03 Pati kes - type 2 type 2 00:00: Medical diabetes diabetes 00 [facility] mellitus mellitus Gastropare Gastropare Disease Active [facility] sis due to sis due to 01-03 Pait kes - DM DM 00:00: Medical 00 [facility] Cyclic Cyclic Disease Active [facility] vomiting vomiting 01-03 [facility] - syndrome syndrome 00:00: Medica l 00 [facility] Anxiety Anxiety Disease Active [facility] 01-03 [facility] - 00[facility] 00 [facility] Bipolar Bipolar Disease Active [facility] disorder disorder 01-03 [facility] - 00:[facility]: [facility] 00 [facility] Hypertensi Hypertensi Disease Active [facility] ve ve 01-03 [facility] - emergency emergency 00:00: [facility] 00 [facility] Allergies, Adverse Reactions, Alerts Allergy Allergy Status Severity Reaction(s) Onset Inactive Treating Comm ents Source Name Type Date Date Clinician Zolpidem Drug Active Other (See confusion [facility] Allergy Comments) 01-03 [facility] - 00:[facility]: [facility] 00 [facility] Lisinopr Drug Active Other (See Unable to [facility] il Allergy Comments) 01-03 remember Luke [facility] - 00:00: Medical 00 [facility] Nitrofur Drug Active Anaphylaxis Liver [facility] [...] Source Sex Assigned At MINERVA Lomeli - [facility] Center Cigarettes smoked 2017-12-17 2017-12-17 MINERVA Paul - current (pack per 00:00:00 00:00:00 Medical Center day) - Reported Cigarette 2017-12-17 2017-12-17 MINERVA Paul - pack-years 00:00:00 00:00:00 [facility] Alcohol intake 2017-12-17 2017-12-17 Current MINERVA Coker es - 00:00:00 00:00:00 non-drinker of Medical Ce nter alcohol (finding) Tobacco Comment 2017-01-03 2017-01-03 patient stated MINERVA nam Lujazmin - 00:00:00 00:00:00 she stopped [address] month ago. History of tobacco 2016-12-04 Smoker MINERVA Paul - use 00:00:00 [facility] Smoking Status Start Date Stop Date Source Former smoker 2017-12-17 00:00:00 2017-12-17 00:00:00 [facility] - [facility] Medications Ordered Filled Start Stop Current Ordering [...] 15:20: daily. Medica l 59 Center hydrALAZINE 2017- Yes 100mg [id number] Take [address] [facility] [address] (APRESOLINE 7-20 [id number] mg by L ukes - ) 100 MG 15:20: 3D mouth 3 Medica l tablet 59 (three) Center times daily. magnesium 2017- Yes 400mg QD Take [address] oxide 7-20 mg by [facility] - (MAG-OX) 15:20: mouth Medical 400 mg 59 daily. Center tablet metoclopram 2017-0 Yes 10mg [id number] Take [address] [address] gadiel HCl 7-20 [id number] by mouth 3 [facility] - (REGLAN) 10 [...] Clinicians Facility Department ID 2020-12-25 Outpatient [facility] [id number] MS 11:57:36 [facility] 2021-01-03 2021-01-03 Office DOMINIQUE Diane [id number] 07:44:43 09:30:54 Visit Alexandr SZYMANSKIROSALIE [id number] MEDICAL [id number] [facility] [id number] 2020-12-24 2020-12-24 Outpatient [facility] [address] [facility] 10:32:00 10:32:00 2020-10-27 2020-10-27 Letter Marshall, [facility] [id number] 00:00:00 00:00:00 (Out) Oz Sims [id number] [place] [id number] Professio [id number] nal 059 [facility] 2020-10-24 2020-10-24 Orders Doctor JOANNA [id number] 00:00:00 00:00:00 Only Unassigned, MAGDALENO [id number] [facility] [id number] 2020-09-24 2020-09-24 [facility] [id number] 00:00:00 00:00:00 Jose Luis Sims [id number] [place] [id number] Professio [id number] nal 220 [facility] 2020-09-09 2020-09-09 [facility] [id number] 00:00:00 00:00:00 Outreach Earl PRIMARY [id number] Manuel CARE [id number] [facility] [id number] 2020-07-23 2020-07-23 [facility] [id number] 13:31:20 14:37:36 Visit Deja PRIMARY [id number] A CARE [id number] PAVILLION [id number] 2020-01-25 2020-01-31 Inpatient 1 Rei Waldron [facility] GPY [id number] 21:31:00 18:15:00 Rei Waldron [facility] Results Test Description Test Time Test [...] the main Lab for analysi s. Urine [id number] 11:32:13 Test Item Value Reference Range Interpretation [...] Escherichia coli C Urine Added by [id number]_UA_CUL_INDPOC [id number] 07:52:10 Test Item Value Reference Range Interpretation Comments Glucose POC (test 160 mg/dL 70-115 H If you con chief human resources officer your code = Glucose POC) patient critically ill, the Merlin-Accu Check Infrom II meter should not be used for Glucose determination. Draw a venous Glucose and send to the main Lab for analysis. POC [id number] 19:32:05 Test Item Value Reference Range Interpretation Comments Glucose POC (test 184 mg/dL 70-115 H If you con chief human resources officer your code = Glucose POC) patient critically ill, the Merlin-Accu Check Infrom II meter should not be used for Glucose determination. Draw a venous Glucose and send to the main Lab for analysis. POC [id number] 17:16:35 Test Item Value Reference Range Interpretation Comments Glucose POC (test 281 mg/dL 70-115 H Notify RN or MDIf you code = Glucose POC) consider your patient critically ill, the Merlin-Accu Chec k Infrom II meter should not be used for Glucos e determination. Draw a venous Glucose and send to the main Lab for analysis. POC [id number] 12:00:38 Test Item Value Reference Range Interpretation Comments Glucose POC (test 138 mg/dL 70-115 H Notify RN or MDIf you code = Glucose POC) consider your patient critically ill, the Merlin-Accu Chec k Infrom II meter should not be used for Glucos e determination. Draw a venous Glucose and send to the main Lab for analysis. POC [id number] 07:41:32 Test Item Value Reference Range Interpretation Comments Glucose POC (test 206 mg/dL 70-115 H Notify RN or MDIf you code = Glucose POC) consider your patient critically ill, the Merlin-Accu Chec k Infrom II meter should not be used for Glucos e determination. Draw a venous Glucose and send to the main Lab for analysis. Urinalysis [id number] 21:07:21 Test Item Value Reference Range Interpretation Comments UA WBC (test code = UA WBC) TNTC 0-5 A UA RBC (test code = UA RBC) 6-10 0-5 A UA Bacteria (test code = UA Bacteria) Profuse A UA Squam Epithelial (test code = UA 6-10 A Squam Epithelial) Urinalysis with Culture, if [id number] 20:35:14 Test Item Value Reference Range Interpretation [...] Micro Indicated Not Indicated A Ind?) POC [id number] 19:06:34 Test Item Value Reference Range Interpretation Comments Glucose POC (test 207 mg/dL 70-115 H If you con chief human resources officer your code = Glucose POC) patient critically ill, the Merlin-Accu Check Infrom II meter should not be used for Glucose determination. Draw a venous Glucose and send to the main Lab for analysis. POC [id number] 17:12:03 Test Item Value Reference Range Interpretation Comments Glucose POC (test 173 mg/dL 70-115 H Notify RN or MDIf you code = Glucose POC) consider your patient critically ill, the Merlin-Accu Chec k Infrom II meter should not be used for Glucos e determination. Draw a venous Glucose and send to the main Lab for analysis. POC [id number] 11:58:01 Test Item Value Reference Range Interpretation Comments Glucose POC (test 289 mg/dL 70-115 H Notify RN or MDIf you code = Glucose POC) consider your patient critically ill, the Merlin-Accu Chec k Infrom II meter should not be used for Glucos e determination. Draw a venous Glucose and send to the main Lab for analysis. POC [id number] 08:19:37 Test Item Value Reference Range Interpretation Comments Glucose POC (test 201 mg/dL 70-115 H Notify RN or MDIf you code = Glucose POC) consider your patient critically ill, the Merlin-Accu Chec k Infrom II meter should not be used for Glucos e determination. Draw a venous Glucose and send to the main Lab for analysis. POC [id number] 20:37:35 Test Item Value Reference Range Interpretation Comments Glucose POC (test 272 mg/dL 70-115 H If you con chief human resources officer your code = Glucose POC) patient critically ill, the Merlin-Accu Check Infrom II meter should not be used for Glucose determination. Draw a venous Glucose and send to the main Lab for analysis. POC [id number] 17:23:05 Test Item Value Reference Range Interpretation Comments Glucose POC (test 229 mg/dL 70-115 H If you con chief human resources officer your code = Glucose POC) patient critically ill, the Merlin-Accu Check Infrom II meter should not be used for Glucose determination. Draw a venous Glucose and send to the main Lab for analysis. POC [id number] 12:01:01 Test Item Value Reference Range Interpretation Comments Glucose POC (test 155 mg/dL 70-115 H If you con chief human resources officer your code = Glucose POC) patient critically ill, the Merlin-Accu Check Infrom II meter should not be used for Glucose determination. Draw a venous Glucose and send to the main Lab for analysis. POC [id number] 08:07:32 Test Item Value Reference Range Interpretation Comments Glucose POC (test 248 mg/dL 70-115 H If you con chief human resources officer your code = Glucose POC) patient critically ill, the Merlin-Accu Check Infrom II meter should not be used for Glucose determination. Draw a venous Glucose and send to the main Lab for analysis. IG [id number] 06:50:39 Test Item Value Reference Range Interpretation Comments IG (test code = IG) 0.7 % 0.0-5.0 IG Abs (test code = IG Abs) 0 x10 N Complete Blood Count with [id number] 06:50:38 Test Item Value Reference Range Interpretation [...] code = IPF) 0 % N Automated [id number] 06:50:38 Test Item Value Reference Range Interpretation Comments Neutro Auto (test code = Neutro 50.3 % 36.0-70.0 Auto) Lymph Auto (test code = Lymph Auto) 38.6 % 12.0-44.0 Laramie Auto (test code = Laramie Auto) 7.3 % 0.0-11.0 Eos, Auto (test code = Eos, Auto) 2.4 % 0.0-7.0 Basophil Auto (test code = Basophil 0.7 % 0.0-2.0 Auto) Neutro Absolute (test code = Neutro 3.0 x10 1.6-7.4 Absolute) Lymph Absolute (test code = Lymph 2.28 x10 .50-4.60 Absolute) Laramie Absolute (test code = Laramie .43 x10 .00-1.20 Absolute) Eos Absolute (test code = Eos 0.14 x10 0.00-0.74 Absolute) Baso Absolute (test code = Baso 0.04 x10 0.00-0.21 Absolute) Basic Metabolic [id number] 05:38:20 Test Item Value Reference Range Interpretation [...] = Lipemia) 0 mg/dL 8-11 Basic Metabolic [id number] 05:38:20 Test Item Value Reference Range Interpretation [...] = 0 mg/dL 8-11 Lipemia) Basic Metabolic [id number] 05:38:20 Test Item Value Reference Range Interpretation [...] code = 0 mg/dL 8-11 Lipemia) POC [id number] 20:28:33 Test Item Value Reference Range Interpretation Comments Glucose POC (test 169 mg/dL 70-115 H If you con chief human resources officer your code = Glucose POC) patient critically ill, the Merlin-Accu Check Infrom II meter should not be used for Glucose determination. Draw a venous Glucose and send to the main Lab for analysis. POC [id number] 16:39:30 Test Item Value Reference Range Interpretation Comments Glucose POC (test 103 mg/dL 70-115 If you con chief human resources officer your code = Glucose POC) patient critically ill, the Merlin-Accu Check Infrom II meter should not be used for Glucose determination. Draw a venous Glucose and send to the main Lab for analysis. RPR [id number] 12:08:56 Test Item Value Reference Range Interpretation Comments RPR Qual (test code = RPR Qual) Non-Reactive Non-Reactive Reactive Control (test code = Reactive Reactive Control) Weak Reactive Control (test Weak Reactive code = Weak Reactive Control) Non-Reactive Control (test code Non-Reactive = Non-Reactive Control) Lot # (test code = Lot #) [id number] N Expiration Dt (test code = 03-20-2021 N Expiration Dt) POC [id number] 11:52:31 Test Item Value Reference Range Interpretation Comments Glucose POC (test 250 mg/dL 70-115 H If you con chief human resources officer your code = Glucose POC) patient critically ill, the Merlin-Accu Check Infrom II meter should not be used for Glucose determination. Draw a venous Glucose and send to the main Lab for analysis. POC [id number] 07:55:29 Test Item Value Reference Range Interpretation Comments Glucose POC (test 205 mg/dL 70-115 H If you con chief human resources officer your code = Glucose POC) patient critically ill, the Merlin-Accu Check Infrom II meter should not be used for Glucose determination. Draw a venous Glucose and send to the main Lab for analysis. Lipid [id number] 05:46:04 Test Item Value Reference Range Interpretation [...] LDL/HDL Ratio=L DL Calc/HDL Chol Thyroid Stimulating [id number] 05:46:04 Test Item Value Reference Range Interpretation Comments TSH (test code = TSH) 3.274 mcIU/mL 0.550-4.780 Hemoglobin [id number] 05:41:08 Test Item Value Reference Range Interpretation Comments Hemoglobin A1c (test code 7.6 % 4.0-5.8 H Di abetic >=6.5 = Hemoglobin A1c) %Prediabet es 5.7-6.4 %Normal <5.7 % Hepatitis B Surface [id number] 21:19:36 Test Item Value Reference Range Interpretation Comments Hep Bs Ag (test code = Hep Bs Non-Reactive Non-Reactive Ag) Novel Coronavirus SARS-CoV-2, [id number] 11:16:16 Test Item Value Reference Range Interpretation [...] Emergency Use Authorization." Novel Coronavirus (COVID-19), EMANUEL [id number] 11:11:24TNPTest not sent and performed at [facility].Rapid was perfomed in Microbiology.Wrong covid test was ord ered.Urine [id number] 00:17:49 Test Item Value Reference Range Interpretation [...] Propoxyphene Confirmation wi thin 7 days. Alcohol [id number] 00:17:29 Test Item Value Reference Range Interpretation Comments Ethanol Level 9.0 mg/dL N The pharmacolo gical (test code = response to blo od alcohol Ethanol Level) levels may va ry from individual to i ndividual. The fatal omkar ntration has been report ed to be >400 mg/dl. Comprehensive Metabolic [id number] 00:17:28 Test Item Value Reference Range Interpretation [...] = Lipemia) 0 g/dL 1-2 Comprehensive Metabolic [id number] 00:17:28 Test Item Value Reference Range Interpretation [...] not provided, and t he patient is femjovita le, multiply by 0.7 42. Results for [...] = 0 g/dL 1-2 Lipemia) Comprehensive Metabolic [id number] 00:17:28 Test Item Value Reference Range Interpretation [...] g/dL 1-2 Lipemia) Complete Blood Count with [id number] 23:26:28 Test Item Value Reference Range Interpretation [...] code = IPF) 0 % N Automated [id number] 23:26:28 Test Item Value Reference Range Interpretation Comments Neutro Auto (test code = Neutro 67.1 % 36.0-70.0 Auto) Lymph Auto (test code = Lymph Auto) 23.3 % 12.0-44.0 Laramie Auto (test code = Laramie Auto) 5.8 % 0.0-11.0 Eos, Auto (test code = Eos, Auto) 2.3 % 0.0-7.0 Basophil Auto (test code = Basophil 0.8 % 0.0-2.0 Auto) Neutro Absolute (test code = Neutro 6.0 x10 1.6-7.4 Absolute) Lymph Absolute (test code = Lymph 2.10 x10 .50-4.60 Absolute) Laramie Absolute (test code = Laramie .52 x10 .00-1.20 Absolute) Eos Absolute (test code = Eos 0.21 x10 0.00-0.74 Absolute) Baso Absolute (test code = Baso 0.07 x10 0.00-0.21 Absolute) IG [id number] 23:26:28 Test Item Value Reference Range Interpretation Comments IG (test code = IG) 0.7 % 0.0-5.0 IG Abs (test code = IG Abs) 0 x10 N HERPES VIRUS ANTIBODY, [id number] 21:46:00 Test Item Value Reference Range Interpretation Comments HERPES VIRUS IGM ([facility]) Negative SE E ATTACHMENT (test code = 1808) BLOOD [id number] 06:00:00 Test Item Value Reference Range Interpretation Comments CULTURE (BEAKER) (test No growth in 5 days code = 1095) BLOOD [id number] 06:00:00 Test Item Value Reference Range Interpretation Comments CULTURE (BEAKER) (test No growth in 5 days code = 1095) POCT-GLUCOSE [id number] 12:11:00 Test Item Value Reference Range Interpretation Comments POC-GLUCOSE METER 154 mg/dL 70-110 H TESTED AT [place] [address] ([facility]) (test code = [facility] 1538) [address] POCT-GLUCOSE [id number] 07:53:00 Test Item Value Reference Range Interpretation Comments POC-GLUCOSE METER 87 mg/dL 70-110 TESTED AT [place] [address] ([facility]) (test code = [facility] [address] 1538) POCT-GLUCOSE [id number] 06:49:00 Test Item Value Reference Range Interpretation Comments POC-GLUCOSE METER 79 mg/dL 70-110 TESTED AT [place] [address] ([facility]) (test code = [facility] [address] 1538) COMPREHENSIVE METABOLIC [id number] 06:15:00 Test Item Value Reference Range Interpretation Comments TOTAL PROTEIN 5.1 gm/dL 6.0-8.3 L ([facility]) (test code = 770) ALBUMIN ([facility]) 2.2 g/dL 3.5-5.0 L (test code = [...] S NOT APPLICABLE FOR DIALYSIS PATIEN TS. [id number] 06:11:00 Test Item Value Reference Range Interpretation Comments MAGNESIUM (BEAKER) (test code = 2.1 mg/dL 1.6-2.6 627) HEPATIC FUNCTION [id number] 06:11:00 Test Item Value Reference Range Interpretation Comments TOTAL PROTEIN (BEAKER) (test code = 5.1 gm/dL 6.0-8.3 L 770) ALBUMIN (BEAKER) (test code = 1145) 2.2 g/dL 3.5-5.0 L BILIRUBIN TOTAL (BEAKER) (test code 1.1 mg/dL 0.2-1.2 = 377) BILIRUBIN DIRECT (BEAKER) (test 0.7 mg/dL 0.1-0.5 H code = 706) ALKALINE PHOSPHATASE (BEAKER) (test 78 U/L 40-150 code = 346) AST (SGOT) ([facility]) (test code = 256 U/L 5-34 H 353) ALT (SGPT) ([facility]) (test code = 513 U/L 6-55 H 347) [id number] 05:30:00 Test Item Value Reference Range Interpretation Comments FIBRINOGEN LEVEL ([facility]) (test 368 mg/dl 225-434 code = 658) [id number] 05:30:00 Test Item Value Reference Range Interpretation Comments PARTIAL THROMBOPLASTIN TIME 42.2 seconds 22.5-36.0 H ([facility]) (test code = 760) PROTHROMBIN [id number] 05:29:00 Test Item Value Reference Range Interpretation Comments PROTIME (MADIE) (test code = 14.8 seconds 11.7-14.7 H 759) INR ([facility]) (test code = 370) 1.2 <=5.9 RECOMMENDED COUMADIN/WARFARIN INR THERAPY RANGESSTANDARD DOSE: 2.0 - 3.0 Includes: PROPHYLAXIS forvenous thrombosis, systemic embolization; TREATMENT for venous thrombosis and/or pulmonary embolus.HIGH RISK: Target INR is 2.5-3.5 for patients with mechanical heart valves.POCT-GLUCOSE [id number] 21:09:00 Test Item Value Reference Range Interpretation Comments POC-GLUCOSE METER 178 mg/dL 70-110 H TESTED AT [place] [address] ([facility]) (test code = [place] Denny [facility] 1538) [address] POCT-GLUCOSE [id number] 17:18:00 Test Item Value Reference Range Interpretation Comments POC-GLUCOSE METER 178 mg/dL 70-110 H TESTED AT [place] [address] ([facility]) (test code = [facility] Eduin [facility] 1538) [address] POCT-GLUCOSE [id number] 13:48:00 Test Item Value Reference Range Interpretation Comments POC-GLUCOSE METER 150 mg/dL 70-110 H TESTED AT [place] [address] ([facility]) (test code = [facility] 1538) [address] FACTOR 5 ACTIVITY (BLEEDING RISK)2017-01-06 10:04:00 Test Item Value Reference Range Interpretation Comments FACTOR V ACTIVITY ([facility]) (test code 90.0 % 60.0-150.0 = 665) Effective 10/24/2013: Reference Range Change-Adult onlyNew: 60.0-150.0 Previous: 50.0-150.0CYTOMEGALOVIRUS ANTIBODY, [id number] 09:42:00 Test Item Value Reference Range Interpretation Comments CYTOMEGALOVIRUS IGM ANTIBODY Negative (BEAKER) (test code = 816) HERPES VIRUS ANTIBODY, [id number] 08:59:00 Test Item Value Reference Range Interpretation Comments 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 G 1807) CYTOMEGALOVIRUS ANTIBODY, [id number] 08:59:00 Test Item Value Reference Range Interpretation Comments CYTOMEGALOVIRUS IGG ANTIBODY Positive (BEAKER) (test code = 790) EBV-VCA ANTIBODY, [id number] 08:59:00 Test Item Value Reference Range Interpretation Comments JASE-WALL VCA IGG (BEAKER) (test Positive code = 983) EBV-VCA ANTIBODY, [id number] 08:59:00 Test Item Value Reference Range Interpretation Comments JASE-WALL VCA IGM (BEAKER) (test Negative code = 984) POCT-GLUCOSE [id number] 07:59:00 Test Item Value Reference Range Interpretation Comments POC-GLUCOSE METER 81 mg/dL 70-110 TESTED AT [facility] [address] ([facility]) (test code = [place] [address] 1538) COMPREHENSIVE METABOLIC [id number] 06:23:00 Test Item Value Reference Range Interpretation [...] S NOT APPLICABLE FOR DIALYSIS PATIEN TS. [id number] 06:17:00 Test Item Value Reference Range Interpretation Comments MAGNESIUM (BEAKER) (test code = 1.8 mg/dL 1.6-2.6 627) HEPATIC FUNCTION [id number] 06:17:00 Test Item Value Reference Range Interpretation [...] code = 779 U/L 6-55 H 347) [id number] 06:00:00 Test Item Value Reference Range Interpretation Comments FIBRINOGEN LEVEL (BEAKER) (test 390 mg/dl 225-434 code = 658) [id number] 06:00:00 Test Item Value Reference Range Interpretation Comments PARTIAL THROMBOPLASTIN TIME 40.2 seconds 22.5-36.0 H (BEAKER) (test code = 760) PROTHROMBIN [id number] 05:59:00 Test Item Value Reference Range Interpretation Comments PROTIME ([facility]) (test code = 14.6 seconds 11.7-14.7 759) INR ([facility]) (test code = 370) 1.2 <=5.9 RECOMMENDED COUMADIN/WARFARIN INR THERAPY RANGESSTANDARD DOSE: 2.0 - 3.0 Includes: PROPHYLAXIS forvenous thrombosis, systemic embolization; TREATMENT for venous thrombosis and/or pulmonary embolus.HIGH RISK: Target INR is 2.5-3.5 for patients with mechanical heart valves.POCT-GLUCOSE [id number] 21:46:00 Test Item Value Reference Range Interpretation Comments POC-GLUCOSE METER 153 mg/dL 70-110 H TESTED AT [place] [address] ([facility]) (test code = [facility] 1538) [address] POCT-GLUCOSE [id number] 18:47:00 Test Item Value Reference Range Interpretation Comments POC-GLUCOSE METER 181 mg/dL 70-110 H TESTED AT [place] [address] ([facility]) (test code = [facility] 1538) [address] POCT-GLUCOSE [id number] 12:40:00 Test Item Value Reference Range Interpretation Comments POC-GLUCOSE METER 178 mg/dL 70-110 H TESTED AT [place] [address] ([facility]) (test code = [facility] 1538) [id number] POCT-GLUCOSE [id number] 07:51:00 Test Item Value Reference Range Interpretation Comments POC-GLUCOSE METER 166 mg/dL 70-110 H TESTED AT [place] [address] ([facility]) (test code = [facility] 1538) [id number] COMPREHENSIVE METABOLIC [id number] 03:26:00 Test Item Value Reference Range Interpretation Comments TOTAL PROTEIN 5.2 gm/dL 6.0-8.3 L ([facility]) (test code = 770) ALBUMIN ([facility]) 2.3 g/dL 3.5-5.0 L (test code = 1145) ALKALINE PHOSPHATASE 72 U/L 40-150 ([facility]) (test code = 346) BILIRUBIN TOTAL 2.0 mg/dL 0.2-1.2 H ([facility]) (test code = 377) SODIUM (BEAKER) (test [...] S NOT APPLICABLE FOR DIALYSIS PATIEN TS. [id number] 03:22:00 Test Item Value Reference Range Interpretation Comments MAGNESIUM (BEAKER) (test code = 1.4 mg/dL 1.6-2.6 L 627) HEPATIC FUNCTION [id number] 03:22:00 Test Item Value Reference Range Interpretation [...] code = 1009 U/L 6-55 H 347) [id number] 03:12:00 Test Item Value Reference Range Interpretation Comments AMMONIA (BEAKER) (test code = 348) 29 mol/L 18-72 [id number] 03:10:00 Test Item Value Reference Range Interpretation Comments PARTIAL THROMBOPLASTIN TIME 42.3 seconds 22.5-36.0 H (BEAKER) (test code = 760) PROTHROMBIN [id number] 03:09:00 Test Item Value Reference Range Interpretation Comments PROTIME (BEAKER) (test code = 16.4 seconds 11.7-14.7 H 759) INR (BEAKER) (test code = 370) 1.3 <=5.9 RECOMMENDED COUMADIN/WARFARIN INR THERAPY RANGESSTANDARD DOSE: 2.0 - 3.0 Includes: PROPHYLAXIS forvenous thrombosis, systemic embolization; TREATMENT for venous thrombosis and/or pulmonary embolus.HIGH RISK: Target INR is 2.5-3.5 for patients with mechanical heart valves.[id number] 03:09:00 Test Item Value Reference Range Interpretation Comments FIBRINOGEN LEVEL (BEAKER) (test 413 mg/dl 225-434 code = 658) CBC W/PLT COUNT & AUTO [id number] 03:09:00 Test Item Value Reference Range Interpretation [...] L 0.00-0.20 (test code = 417) 0.00POCT-GLUCOSE [id number] 22:33:00 Test Item Value Reference Range Interpretation Comments POC-GLUCOSE METER 230 mg/dL 70-110 H TESTED AT [place] [address] ([facility]) (test code = [facility] Eduin [facility] 1538) [address] POCT-GLUCOSE [id number] 18:17:00 Test Item Value Reference Range Interpretation Comments POC-GLUCOSE METER 222 mg/dL 70-110 H TESTED AT [place] [address] ([facility]) (test code = [facility] 1538) [address] COMPREHENSIVE METABOLIC [id number] 16:59:00 Test Item Value Reference Range Interpretation [...] PATIEN TS. PERIPHERAL BLOOD SMEAR - PATHOLOGIST [id number] 15:30:00 Test Item Value Reference Range Interpretation Comments RBC MORPHOLOGY Polychromasia (BEAKER) (test code = 2846) RBC MORPHOLOGY Anisocytosis (BEAKER) (test code = 43011) PERIPHERAL SMR REVIEW Cell counts confirmed (BEAKER) (test code = 2640) [id number] Josefina Lara M.D. (BEAKER) (test code = (electronic signature) 4433) PROTHROMBIN [id number] 15:12:00 Test Item Value Reference Range Interpretation [...] Reference Range Interpretation Comments ANTI-NUCLEAR ANTIBODY (IVETTE) (MADIE) Negative Negative (test code = 418) POCT-GLUCOSE [id number] 12:47:00 Test Item Value Reference Range Interpretation Comments POC-GLUCOSE METER 212 mg/dL 70-110 H TESTED AT [facility] 67[address] ([employer]) (test code = [place] 1538) [address] [id number] 12:34:00 Test Item Value Reference Range Interpretation Comments RPR SCREEN ([employer]) (test code = Nonreactive Nonreactive 420) CLOSTRIDIUM DIFFICILE TOXIN [id number] 10:12:00 Test Item Value Reference Range Interpretation [...] Reference Range Change-Adult onlyNew: 60.0-150.0 Previous: 50.0-150.0POCT-GLUCOSE [id number] 06:40:00 Test Item Value Reference Range Interpretation Comments POC-GLUCOSE METER 167 mg/dL 70-110 H TESTED AT [facility] 67[address] (BEAKER) (test code = [place] 1538) [address] COMPREHENSIVE METABOLIC [id number] 04:08:00 Test Item Value Reference Range Interpretation [...] ESTIM ATED GFR. Specimen slightly ictericHEPATIC FUNCTION [id number] 04:06:00 Test Item Value Reference Range Interpretation [...] 1091 U/L 6-55 H 347) Specimen slightly [id number] 04:01:00 Test Item Value Reference Range Interpretation Comments FIBRINOGEN LEVEL (BEAKER) (test 379 mg/dl 225-434 code = 658) [id number] 04:01:00 Test Item Value Reference Range Interpretation Comments PARTIAL THROMBOPLASTIN TIME 40.7 seconds 22.5-36.0 H (BEAKER) (test code = 760) PROTHROMBIN [id number] 04:00:00 Test Item Value Reference Range Interpretation [...] L 0.00-0.20 (test code = 417) 0.00POCT-GLUCOSE [id number] 00:19:00 Test Item Value Reference Range Interpretation Comments POC-GLUCOSE METER 159 mg/dL 70-110 H TESTED AT [facility] 67[address] (BEAKER) (test code = [place] 1538) [address] POCT-GLUCOSE [id number] 18:56:00 Test Item Value Reference Range Interpretation Comments POC-GLUCOSE METER 192 mg/dL 70-110 H TESTED AT [facility] 67[address] (BEAKER) (test code = [place] 1531) [address] COMPREHENSIVE METABOLIC [id number] 16:55:00 Test Item Value Reference Range Interpretation [...] CALCULATE ESTIM ATED GFR. Specimen slightly ictericPROTHROMBIN [id number] 16:37:00 Test Item Value Reference Range Interpretation Comments PROTIME (BEAKER) (test code = 20.9 seconds 11.7-14.7 H 759) INR (BEAKER) (test code = 370) 1.8 <=5.9 RECOMMENDED COUMADIN/WARFARIN INR THERAPY RANGESSTANDARD DOSE: 2.0 - 3.0 Includes: PROPHYLAXIS forvenous thrombosis, systemic embolization; TREATMENT for venous thrombosis and/or pulmonary embolus.HIGH RISK: Target INR is 2.5-3.5 for patients with mechanical heart valves.HEPATITIS B SURFACE [id number] 14:05:00 Test Item Value Reference Range Interpretation Comments HEPATITIS B SURFACE ANTIBODY < mIU/mL <8.0 (BEAKER) (test code = 647) HEPATITIS B CORE ANTIBODY, [id number] 13:43:00 Test Item Value Reference Range Interpretation Comments HEPATITIS B CORE TOTAL ANTIBODY Nonreactive Nonreactive (BEAKER) (test code = 497) BLOOD GAS, [id number] 13:35:00 Test Item Value Reference Range Interpretation [...] code = 1819) 28.0 % URINALYSIS W/ [id number] 13:16:00 Test Item Value Reference Range Interpretation [...] 1584) SOURCE(BEAKER) (test code = Urine, [place] 8174) VITAMIN D, [id number] 13:14:00 Test Item Value Reference Range Interpretation Comments VITAMIN D 25-OH (BEAKER) (test code = < ng/mL 13.0-47.8 L 2764) ALPHA FETOPROTEIN (AFP), TUMOR [id number] 13:06:00 Test Item Value Reference Range Interpretation Comments ALPHA-FETOPROTEIN (BEAKER) (test code < ng/mL <10.0 = 1094) Effective 05/08/2014: Reference Range ChangeNew: <10.0 Previous: 0.0-8.0 HEMOGLOBIN [id number] 13:05:00 Test Item Value Reference Range Interpretation Comments HEMOGLOBIN A1C (BEAKER) (test code = 7.6 % 4.3-6.1 H 368) CARCINOEMBRYONIC ANTIGEN (CEA)2017-01-03 12:59:00 Test Item Value Reference Range Interpretation Comments CARCINOEMBRYONIC ANTIGEN (BEAKER) 2.0 ng/mL 0.0-5.0 (test code = 685) [id number] 12:59:00 Test Item Value Reference Range Interpretation Comments FERRITIN (BEAKER) (test code = 1841 ng/mL 5-275 H 361) Effective 05/08/2014: Reference Range ChangeNew: Male 5-275 Previous: Male 22-322 Female 5-275 Female [id number] 12:58:00 Test Item Value Reference Range Interpretation Comments T4 TOTAL (BEAKER) (test code = 895) 4.5 ug/dL 4.9-11.7 L [id number] 12:58:00 Test Item Value Reference Range Interpretation Comments THYROID STIMULATING HORMONE 1.79 uIU/mL 0.35-4.94 (BEAKER) (test code = 772) [id number] 12:58:00 Test Item Value Reference Range Interpretation Comments T3 TOTAL (BEAKER) (test code = 656) 34 ng/dL 48-159 L Effective 05/08/2014: Reference Range ChangeNew: 48-159 Previous: 60-181 CALCIUM, [id number] 12:47:00 Test Item Value Reference Range Interpretation Comments CALCIUM IONIZED (BEAKER) (test 1.05 mmol/L 1.12-1.27 L code = 698) PH, BLOOD (BEAKER) (test code = 7.43 1810) [id number] 12:42:00 Test Item Value Reference Range Interpretation [...] % 20-55 (test code = 2590) URIC [id number] 12:40:00 Test Item Value Reference Range Interpretation Comments URIC ACID (BEAKER) (test code = 16.0 mg/dL 2.6-7.2 H 773) Specimen slightly ictericLIPID [id number] 12:40:00 Test Item Value Reference Range Interpretation [...] 160-189 Very High >=190 Specimen slightly ictericBILIRUBIN, [id number] 12:40:00 Test Item Value Reference Range Interpretation Comments BILIRUBIN DIRECT (MADIE) (test 2.4 mg/dL 0.1-0.5 H code = 706) GAMMA GLUTAMYL TRANSFERASE (GGT)2017-01-03 12:40:00 Test Item Value Reference Range Interpretation Comments GAMMA GLUTAMYL TRANSFERASE (MADIE) 53 U/L 9-64 (test code = 364) Specimen slightly [id number] 12:39:00 Test Item Value Reference Range Interpretation Comments ETHANOL (MADIE) (test code = 400) < mg/dL <=10 SCREEN, [id number] 12:36:00 Test Item Value Reference Range Interpretation Comments TEST URINE (MADIE) (test Negative code = 583) POCT-GLUCOSE [id number] 12:34:00 Test Item Value Reference Range Interpretation Comments POC-GLUCOSE METER 189 mg/dL 70-110 H TESTED AT [facility] 67[address] (MADIE) (test code = [place] [facility] 1538) [address] HIV-1 ANTIGEN WITH HIV-1/2 [id number] 11:58:00 Test Item Value Reference Range Interpretation Comments HIV-1 ANTIGEN WITH HIV 1\\T\\2 Nonreactive Nonreactive ANTIBODY (2) (MADIE) (test code = 2586) TROPONIN [id number] 09:44:00 Test Item Value Reference Range Interpretation [...] Previous: 0.0-4.9CK-MB Reference Range:<6.7 Normal6.7-10.0 Borderline>10.0 AbnormalACETAMINOPHEN [id number] 08:31:00 Test Item Value Reference Range Interpretation Comments ACETAMINOPHEN LEVEL (BEAKER) (test < ug/mL 10.0-30.0 L code = 344) TROPONIN [id number] 05:53:00 Test Item Value Reference Range Interpretation [...] acute neurological disease, and persistent tachyarrhythmia.BASIC METABOLIC [id number] 05:53:00 Test Item Value Reference Range Interpretation [...] TO CALCULA TE ESTIMATED GFR. Specimen slightly [id number] 05:52:00 Test Item Value Reference Range Interpretation Comments PHOSPHORUS (BEAKER) (test code = 5.7 mg/dL 2.3-4.7 H 604) HEPATIC FUNCTION [id number] 05:52:00 Test Item Value Reference Range Interpretation [...] Specimen slightly ictericCREATINE KINASE (CK), TOTAL AND [id number] 05:52:00 Test Item Value Reference Range Interpretation Comments CREATINE KINASE TOTAL (BEAKER) 341 U/L 29-200 H (test code = 380) CREATINE KINASE-MB (BEAKER) (test 5.4 ng/mL 0.0-6.6 code = 750) CREATINE KINASE-MB INDEX (BEAKER) 1.6 % (test code = 395) Effective 05/08/2014: CK-MB Reference Range ChangeNew: 0.0-6.6 Previous: 0.0-4.9CK-MB Reference Range:<6.7 Normal6.7-10.0 Borderline>10.0 AbnormalCBC W/PLT COUNT & AUTO [id number] 05:48:00 Test Item Value Reference Range Interpretation [...] K/ L 0.00-0.20 (test code = 417) [id number] 05:09:00 Test Item Value Reference Range Interpretation Comments FIBRINOGEN LEVEL (BEAKER) (test 427 mg/dl 225-434 code = 658) [id number] 05:09:00 Test Item Value Reference Range Interpretation Comments PARTIAL THROMBOPLASTIN TIME 36.2 seconds 22.5-36.0 H (BEAKER) (test code = 760) PROTHROMBIN [id number] 05:08:00 Test Item Value Reference Range Interpretation Comments PROTIME (BEAKER) (test code = 22.8 seconds 11.7-14.7 H 759) INR (BEAKER) (test code = 370) 2.0 <=5.9 RECOMMENDED COUMADIN/WARFARIN INR THERAPY RANGESSTANDARD DOSE: 2.0 - 3.0 Includes: PROPHYLAXIS forvenous thrombosis, systemic embolization; TREATMENT for venous thrombosis and/or pulmonary embolus.HIGH RISK: Target INR is 2.5-3.5 for patients with mechanical heart valves.HEPATITIS PANEL, [id number] 03:40:00 Test Item Value Reference Range Interpretation Comments HEPATITIS A IGM ANTIBODY (BEAKER) Nonreactive Nonreactive (test code = 498) HEPATITIS B CORE IGM ANTIBODY Nonreactive Nonreactive (BEAKER) (test code = 645) HEPATITIS C ANTIBODY (BEAKER) Nonreactive Nonreactive (test code = 367) HEPATITIS B SURFACE ANTIGEN (2) Nonreactive Nonreactive (BEAKER) (test code = 2585) CREATININE, RANDOM [id number] 03:18:00 Test Item Value Reference Range Interpretation Comments CREATININE URINE (BEAKER) (test 118.7 mg/dL code = 375) Reference Range: No NormalsSODIUM, RANDOM [id number] 03:18:00 Test Item Value Reference Range Interpretation Comments SODIUM URINE (BEAKER) (test code = 60 meq/L 243) Reference Range: No NormalsUREA NITROGEN, RANDOM [id number] 03:18:00 Test Item Value Reference Range Interpretation Comments UREA NITROGEN URINE (BEAKER) (test 303 mg/dL code = 538) Reference Range: No [id number] 03:07:00 Test Item Value Reference Range Interpretation Comments AMMONIA (BEAKER) (test code = 348) 48 mol/L 18-72 [id number] 02:57:00 Test Item Value Reference Range Interpretation [...] within 95-100% range. URINALYSIS W/ REFLEX URINE [id number] 02:53:00 Test Item Value Reference Range Interpretation [...] = 514) SOURCE(BEAKER) (test code = 2795) [id number] 02:49:00 Test Item Value Reference Range Interpretation Comments PARTIAL THROMBOPLASTIN TIME 39.4 seconds 22.5-36.0 H (BEAKER) (test code = 760) PROTHROMBIN [id number] 02:48:00 Test Item Value Reference Range Interpretation Comments PROTIME (BEAKER) (test code = 22.0 seconds 11.7-14.7 H 759) INR (BEAKER) (test code = 370) 1.9 <=5.9 RECOMMENDED COUMADIN/WARFARIN INR THERAPY RANGESSTANDARD DOSE: 2.0 - 3.0 Includes: PROPHYLAXIS forvenous thrombosis, systemic embolization; TREATMENT for venous thrombosis and/or pulmonary embolus.HIGH RISK: Target INR is 2.5-3.5 for patients with mechanical heart valves.[id number] 02:48:00 Test Item Value Reference Range Interpretation Comments FIBRINOGEN LEVEL (BEAKER) (test 421 mg/dl 225-434 code = 658) BLOOD GAS, [id number] 02:43:00 Test Item Value Reference Range Interpretation [...] 21.0 % CBC W/PLT COUNT & AUTO [id number] 02:43:00 Test Item Value Reference Range Interpretation [...] code = 417) 0.00LACTIC ACID, VENOUS, WHOLE [id number] 02:35:00 Test Item Value Reference Range Interpretation Comments LACTATE BLOOD VENOUS (2) (BEAKER) 0.8 mmol/L 0.5-2.2 (test code = 2872) Effective 10/23/2015: Units/Reference Range ChangeNew: 0.5-2.2 mmol/L Previous: 5-20 mg/dLSpecimen slightly icteric
[2021-01-15] MEDS ORDERED: MEPERIDINE HCL 50 MG/ML ONE (07:41)
[2021-01-15] MEDS ORDERED: METOCLOPRAMIDE 10 MG/2mL INJ ONE ×3 (07:41→23:02)
[2021-01-15] MEDS ORDERED: NA CHLORIDE 0.9% 50 ML ONE (07:42)
[2021-01-15] MEDS ORDERED: ONDANSETRON 4 MG/2 ML VIAL ONE ×3 (07:42→23:03)
[2021-01-15 08:01] LABS: Absolute Lymphocytes (CBC) 1.3 K/uL (0.7-4.9); Basophils % 1.3 % (0-1.3); Hematocrit 26.2 % (36.0-45.0); Lymphocytes % 26.9 % (15.3-44.8); MPV 10.3 fL (7.6-11.3); RBC Red Blood Cell Count 2.86 M/uL (3.86-4.86)
[2021-01-15 08:14] LABS: Albumin 3.6 g/dL (3.4-5.0); Bilirubin Direct 0.2 mg/dL (0-0.2); Bilirubin Total 0.5 mg/dL (0.2-1.0); Protein, Total 6.8 g/dL (6.4-8.2)
[2021-01-15] MEDS ORDERED: SOD POLYSTYREN SUL 15 GM/60 ML UCUP ONE (09:00)
[2021-01-15 09:24] LABS: Anisocytosis 1+; Blood Morphology Comment NOTED (NOT SEEN); Platelet Estimate ADEQ
--- NOTE | 2021-01-15 11:38 | EDPHYS ---
Physician Documentation [facility] Name: Cathi Zaldivar Age: 40 yrs Sex: Female : 1980 Arrival Date: 01/15/2021 Time: 05:36 Bed 7 Private MD: Jose Miguel Morin ED Physician Dinesh Stallworth HPI: 01/15 05:59 This 40 yrs old Female presents to ER via Wheelchair with complaints of ma2 Abdominal Pain, Vomiting. 06:27 The patient presents to the emergency department with nausea, vomiting, diarrhea. ma2 Onset: The symptoms/episode began/occurred gradually, 1 week(s) ago. Associated signs and symptoms: Pertinent negatives: belching, dysuria, flatulence, GI bleeding. Severity of symptoms: At their worst the symptoms were moderate in the emergency department the symptoms are unchanged. Historical: - Allergies: 05:45 Nitrofurantoin Macrocrystal; em 05:45 Lisinopril; em 05:45 Ibuprofen; em 05:45 GUAIFENESIN; em 05:45 Codeine; em 05:45 ambien; em 05:45 PENICILLINS; em 05:45 zolpidem tartrate; em 05:45 Prolixin; em 05:45 Morphine; em - PMHx: 05:45 "mental problems"; cyclic vomiting syndrome; chronic kidney disease; Diabetes - NIDDM; em Gastroparesis; Hypertension; covid 19; gastroporesis; liver failure; ENCEPHALOPATHY; HD-TTHSat; PERIPHERAL NEUROPATHY; CHF; Dialysis; m-w-f; ibs; Seizures; - PSHx: 05:45 section; em - Immunization history:: Adult Immunizations up to date, Client reports having NOT received the Covid vaccine. - Social history:: Smoking status: Patient reports the use of cigarette tobacco products, denies chronic smoking, but will smoke occasionally, Patient/guardian denies using alcohol, street drugs, The patient lives with family. - Family history:: not pertinent. ROS: 06:27 Constitutional: Negative for fever, chills, and weight loss, Cardiovascular: Negative ma2 for chest pain, palpitations, and edema, Respiratory: Negative for shortness of breath, cough, wheezing, and pleuritic chest pain, Abdomen/GI: Negative for abdominal pain, nausea, diarrhea, and constipation. 06:27 All other systems are negative. Exam: 06:27 Constitutional: This is a well developed, well nourished patient who is awake, alert, ma2 and in no acute distress. Head/Face: Normocephalic, atraumatic. Eyes: Pupils equal round and reactive to light, extra-ocular motions intact. Lids and lashes normal. Conjunctiva and sclera are non-icteric and not injected. Cornea within normal limits. Periorbital areas with no swelling, redness, or edema. ENT: Nares patent. No nasal discharge, no septal abnormalities noted. Tympanic membranes are normal and external auditory canals are clear. Oropharynx with no redness, swelling, or masses, exudates, or evidence of obstruction, uvula midline. Mucous membranes moist. Neck: Trachea midline, no thyromegaly or masses palpated, and no cervical lymphadenopathy. Supple, full range of motion without nuchal rigidity, or vertebral point tenderness. No Meningismus. Chest/axilla: Normal chest wall appearance and motion. Nontender with no deformity. No lesions are appreciated. Cardiovascular: Regular rate and rhythm with a normal S1 and S2. No gallops, murmurs, or rubs. Normal PMI, no JVD. No pulse deficits. Respiratory: Lungs have equal breath sounds bilaterally, clear to auscultation and percussion. No rales, rhonchi or wheezes noted. No increased work of breathing, no retractions or nasal flaring. Abdomen/GI: Soft, non-tender, with normal bowel sounds. No distension or tympany. No guarding or rebound. No evidence of tenderness throughout. Back: No spinal tenderness. No costovertebral tenderness. Full range of motion. Skin: Warm, dry with normal turgor. Normal color with no rashes, no lesions, and no evidence of cellulitis. MS/ Extremity: Pulses equal, no cyanosis. Neurovascular intact. Full, normal range of motion. Neuro: Awake and alert, GCS 15, oriented to person, place, time, and situation. Cranial nerves II-XII grossly intact. Motor strength 5/5 in all extremities. Sensory grossly intact. Cerebellar exam normal. Normal gait. Vital Signs: 05:43 BP 167 / 97; Pulse 62; Resp 16; Temp 97.4; Pulse Ox 100% on R/A; Weight 72 kg; Height 5 em ft. 2 in. (157.48 cm); 08:48 BP 148 / 88; Pulse 61; Resp 15; Pulse Ox 99% ; hb 10:17 BP 140 / 80; Pulse 66; Resp 14; Pulse Ox 98% on R/A; hb 12:00 BP 138 / 82; Pulse 64; Resp 18; Pulse Ox 100% on R/A; hb 14:00 BP 140 / 84; Pulse 66; Resp 16; Pulse Ox 99% ; hb 05:43 Body Mass Index 29.03 (72.00 kg, 157.48 cm) em MDM: 05:44 Patient medically screened. [facility] 06:27 Differential diagnosis: Nonspecific abd pain, gastritis, viral gastroenteritis, ma2 gastroenteritis. 11:36 Data reviewed: vital signs, nurses notes, and as a result, I will admit patient. rn Counseling: I had a detailed discussion with the patient and/or guardian regarding: the historical points, exam findings, and any diagnostic results supporting the discharge/admit diagnosis, lab results, the need for further work-up and treatment in the hospital. Admission orders: after a detailed discussion of the patient's condition and case, the admit orders are written by me. ED course: Patient with potassium of 6.0. Unable to tolerate Kayexalate. Unable to get into dialysis today. Will admit for dialysis for hyperkalemia.. 01/15 05:43 Order name: Basic Metabolic Panel [facility] 01/15 05:43 Order name: CBC with Diff; Complete Time: 11:32 [facility] 01/15 05:43 Order name: Hepatic Function; Complete Time: 11:32 [facility] 01/15 05:43 Order name: Lipase; Complete Time: 11:32 [facility] 01/15 05:43 Order name: Basic Metabolic Panel; Complete Time: 11:32 [facility] 01/15 09:24 Order name: Manual Differential; Complete Time: 11:32 [facility] 01/15 15:04 Order name: COVID-19 : Document "Date of Symptom Onset" if Symptomatic. 01/15 15:10 Order name: Glucose, Ancillary Testing [facility] 01/15 16:11 Order name: CORONAVIRUS [facility] 01/15 17:28 Order name: SARS-COV-2 RT PCR [facility] 01/15 18:53 Order name: Urine Dipstick-Ancillary [facility] 01/16 07:36 Order name: Comprehensive Metabolic Panel EDMS 01/16 07:36 Order name: Phosphorus EDMS 01/16 07:36 Order name: Magnesium EDMS 01/15 05:43 Order name: IV Saline Lock; Complete Time: 07:28 ma2 01/15 05:43 Order name: Labs collected and sent; Complete Time: 07:28 ma2 01/15 11:51 Order name: EKG; Complete Time: 11:52 rn 01/15 11:51 Order name: EKG - Nurse/Tech; Complete Time: 12:57 rn 01/16 07:36 Order name: Thyroid Stimulating Hormone EDMS 01/16 07:52 Order name: CBC with Automated Diff EDMS 01/16 08:02 Order name: T4 Free EDMS 01/16 09:11 Order name: CBC Smear Scan EDMS 01/16 10:49 Order name: CT EDMS Administered Medications: 07:29 Drug: Zofran (Ondansetron) 4 mg Route: IVP; Site: left hand; hb 08:15 Follow up: Response: No adverse reaction hb 07:29 Drug: Reglan (metoCLOPramide) 20 mg Route: IVP; Site: left hand; hb 08:15 Follow up: Response: No adverse reaction hb 07:30 Drug: Demerol (meperidine) 50 mg Route: IVP; Site: left hand; hb 08:15 Follow up: Response: No adverse reaction hb 08:47 Drug: Kayexalate (polystyrene) 30 grams Route: PO; hb 09:30 Follow up: Response: No adverse reaction hb 12:29 Drug: Demerol (meperidine) 25 mg Route: IM; Site: left deltoid; hb 13:10 Follow up: Response: No adverse reaction hb 12:29 Drug: Ondansetron 4 mg Route: PO; hb 13:10 Follow up: Response: No adverse reaction hb Disposition Summary: 01/15/21 11:38 Hospitalization Ordered Hospitalization Status: Observation rn Provider: Chandler Bautista rn Condition: Stable rn Problem: new rn Symptoms: are unchanged rn Bed/Room Type: Standard rn Location: [facility] ER HOLD(01/15/21 14:11) hb Room Assignment: ERHOLD-(01/15/21 14:11) hb Diagnosis - Hyperkalemia rn - End stage renal disease rn - Intractable vomiting decision unit rn Instructions: - Discharge Summary Sheet ma2 - Abdominal Pain, Adult ma2 Forms: - Medication Reconciliation Form rn - SBAR form rn Prescriptions: - Reglan 10 mg Oral Tablet - take 1 tablet by ORAL route every 6 hours . take 30 minutes before meals and at ma2 bedtime; 100 tablet; Refills: 0, Product Selection Permitted - Zofran 4 mg Oral Tablet - take 1 tablet by ORAL route every 12 hours As needed; 20 tablet; Refills: 0, ma2 Product Selection Permitted Signatures: Dispatcher [employer] Regulo Galarza RN TABATHA Dinesh Stallworth MD MD rn Baxter, Heather, RN RN BrynJose De Jesus kulkarni MD MD nd2 Corrections: (The following items were deleted from the chart) 14: 11:38 Telemetry/MedSurg (observation) tabatha 14:11 11:38 tabatha
--- NOTE | 2021-01-15 11:38 | ER ---
Nurse's Notes [facility] Name: Cathi Zaldivar Age: 40 yrs Sex: Female : 1980 Arrival Date: 01/15/2021 Time: 05:36 Bed 7 Private MD: Jose Miguel Morin Diagnosis: Hyperkalemia;End stage renal disease;Intractable vomiting Presentation: 01/15 05:43 Chief complaint: Patient states: N/V and abdominal pain since yesterday, hx of em gastroparesis, denies fever, supposed to have dialysis today but was vomiting. Coronavirus screen: Client denies travel out of the [place] in the last 14 days. Ebola Screen: Patient negative for fever greater than or equal to 101.5 degrees Fahrenheit, and additional compatible Ebola Virus Disease symptoms Patient denies exposure to infectious person. Patient denies travel to an Ebola-affected area in the 21 days before illness onset. No symptoms or risks identified at this time. Initial Sepsis Screen: Does the patient meet any 2 criteria? No. Patient's initial sepsis screen is negative. Does the patient have a suspected source of infection? No. Patient's initial sepsis screen is negative. Risk Assessment: Do you want to hurt yourself or someone else? Patient reports no desire to harm self or others. Onset of symptoms was January 15, 2021. 05:43 Method Of Arrival: Wheelchair em 05:43 Acuity: JESSICA 3 em Historical: - Allergies: 05:45 Nitrofurantoin Macrocrystal; em 05:45 Lisinopril; em 05:45 Ibuprofen; em 05:45 GUAIFENESIN; em 05:45 Codeine; em 05:45 ambien; em 05:45 PENICILLINS; em 05:45 zolpidem tartrate; em 05:45 Prolixin; em 05:45 Morphine; em - PMHx: 05:45 "mental problems"; cyclic vomiting syndrome; chronic kidney disease; Diabetes - NIDDM; em Gastroparesis; Hypertension; covid 19; gastroporesis; liver failure; ENCEPHALOPATHY; HD-TTHSat; PERIPHERAL NEUROPATHY; CHF; Dialysis; m-w-f; ibs; Seizures; - PSHx: 05:45 section; em - Immunization history:: Adult Immunizations up to date, Client reports having NOT received the Covid vaccine. - Social history:: Smoking status: Patient reports the use of cigarette tobacco products, denies chronic smoking, but will smoke occasionally, Patient/guardian denies using alcohol, street drugs, The patient lives with family. - Family history:: not pertinent. Screenin:15 Abuse screen: Denies threats or abuse. Denies injuries from another. Nutritional hb screening: No deficits noted. Tuberculosis screening: No symptoms or risk factors identified. Fall Risk None identified. Assessment: 07:15 General: Appears in no apparent distress. uncomfortable, Behavior is calm, cooperative. hb Pain: Pain currently is 8 out of 10 on a pain scale. Neuro: Level of Consciousness is awake, alert, obeys commands, Oriented to person, place, time, situation. Cardiovascular: Patient's skin is warm and dry. Respiratory: Respiratory effort is even, unlabored, Respiratory pattern is regular, symmetrical. GI: Reports lower abdominal pain, upper abdominal pain, nausea. : No signs and/or symptoms were reported regarding the genitourinary system. EENT: No signs and/or symptoms were reported regarding the EENT system. Derm: Skin is pink, warm \\T\\ dry. Musculoskeletal: No signs and/or symptoms reported regarding the musculoskeletal system. 08:48 Reassessment: Patient appears in no apparent distress at this time. Patient and/or hb family updated on plan of care and expected duration. Pain level reassessed. Patient is alert, oriented x 3, equal unlabored respirations, skin warm/dry/pink. 09:22 Reassessment: Patient appears in no apparent distress at this time. Patient and/or hb family updated on plan of care and expected duration. Pain level reassessed. Patient is alert, oriented x 3, equal unlabored respirations, skin warm/dry/pink. 10:17 Reassessment: Patient appears in no apparent distress at this time. Patient and/or hb family updated on plan of care and expected duration. Pain level reassessed. Patient is alert, oriented x 3, equal unlabored respirations, skin warm/dry/pink. 11:19 Reassessment: Patient appears in no apparent distress at this time. Patient and/or hb family updated on plan of care and expected duration. Pain level reassessed. Patient is alert, oriented x 3, equal unlabored respirations, skin warm/dry/pink. 12:00 Reassessment: Patient appears in no apparent distress at this time. Patient and/or hb family updated on plan of care and expected duration. Pain level reassessed. Patient is alert, oriented x 3, equal unlabored respirations, skin warm/dry/pink. 13:00 Reassessment: Patient appears in no apparent distress at this time. Patient and/or hb family updated on plan of care and expected duration. Pain level reassessed. Patient is alert, oriented x 3, equal unlabored respirations, skin warm/dry/pink. 14:00 Reassessment: Patient appears in no apparent distress at this time. Patient and/or hb family updated on plan of care and expected duration. Pain level reassessed. Patient is alert, oriented x 3, equal unlabored respirations, skin warm/dry/pink. 21:08 Reassessment: Received care of pt at this time. Pt currently in HD, dialysis nurse at ad5 bedside. Pt denies needs or c/o. Resp even/unlabored. NAD noted, will continue to monitor. Vital Signs: 05:43 BP 167 / 97; Pulse 62; Resp 16; Temp 97.4; Pulse Ox 100% on R/A; Weight 72 kg; Height 5 em ft. 2 in. (157.48 cm); 08:48 BP 148 / 88; Pulse 61; Resp 15; Pulse Ox 99% ; hb 10:17 BP 140 / 80; Pulse 66; Resp 14; Pulse Ox 98% on R/A; hb 12:00 BP 138 / 82; Pulse 64; Resp 18; Pulse Ox 100% on R/A; hb 14:00 BP 140 / 84; Pulse 66; Resp 16; Pulse Ox 99% ; hb 05:43 Body Mass Index 29.03 (72.00 kg, 157.48 cm) em ED Course: 05:36 Patient arrived in ED. es 05:36 Jose Miguel Morin DO is Private Physician. es 05:44 Jose De Jesus Graf MD is Attending Physician. ma2 05:45 Triage completed. em 05:45 Arm band placed on. em 06:18 Missed attempt(s): 24 gauge in left forearm. upper arm. Bleeding controlled, band aid ds4 applied, catheter tip intact. 07:15 Patient has correct armband on for positive identification. Call light in reach. Side hb rails up X 1. 07:31 Inserted saline lock: 24 gauge in left hand, using aseptic technique. Blood collected. ss 11:36 Attending Physician role handed off by Jose De Jesus Graf MD rn 11:36 Dinesh Stallworth MD is Attending Physician. rn 11:37 Chandler Bautista is Hospitalizing Provider. rn 18:26 Bailee Escamilla, RN is Primary Nurse. hb 21:08 No provider procedures requiring assistance completed. Patient admitted, IV remains in ad5 place. Administered Medications: 07:29 Drug: Zofran (Ondansetron) 4 mg Route: IVP; Site: left hand; hb 08:15 Follow up: Response: No adverse reaction hb 07:29 Drug: Reglan (metoCLOPramide) 20 mg Route: IVP; Site: left hand; hb 08:15 Follow up: Response: No adverse reaction hb 07:30 Drug: Demerol (meperidine) 50 mg Route: IVP; Site: left hand; hb 08:15 Follow up: Response: No adverse reaction hb 08:47 Drug: Kayexalate (polystyrene) 30 grams Route: PO; hb 09:30 Follow up: Response: No adverse reaction hb 12:29 Drug: Demerol (meperidine) 25 mg Route: IM; Site: left deltoid; hb 13:10 Follow up: Response: No adverse reaction hb 12:29 Drug: Ondansetron 4 mg Route: PO; hb 13:10 Follow up: Response: No adverse reaction hb Outcome: 11:38 Decision to Hospitalize by Provider. rn 21:08 Admitted to ER Hold. Please see [facility] for further documentation. ad5 21:08 Condition: stable 21:08 Instructed on the need for admit, Demonstrated understanding of instructions. 01/16 14:47 Patient left the ED. iw Signatures: Rima Barajas Edgar, RN RN em Williams, Irene, RN RN Dinesh Stallworth MD MD rn Calderon, Audri, RN RN aa5 Shannan Lynch RN RN ss Swanson, Donovan ds4 Bailee Escamilla RN RN Jose De Jesus Graf MD MD [facility] Forrest Bhatt ad5 Corrections: (The following items were deleted from the chart) 01/15 07:29 07:07 Lorelei Newman RN is Primary Nurse. [email or web address] aa5 01/16 19:27 07 18:26 Primary Nurse role handed off by Lorelei Newman RN aa5
[2021-01-15] MEDS ORDERED: ONDANSETRON 4 MG (ODT) TAB ONE (12:48)
[2021-01-15] MEDS ORDERED: MEPERIDINE HCL 25 MG/ML SYR ONE (12:48)
[2021-01-15] MEDS ORDERED: NA CHLORIDE 0.9% 1,000 ML IV PRN (13:24)
[2021-01-15] MEDS ORDERED: MANNITOL 25% 12.5 GM/50 ML VIAL IV PRN (13:24)
[2021-01-15] MEDS ORDERED: ALBUMIN HUMAN 25% 50 ML IV SCH (14:00)
[2021-01-15] MEDS ORDERED: ACETAMINOPHEN 500 MG TAB PO PRN (14:10)
--- NOTE | 2021-01-15 14:10 | P.HP ---
Certification for Inpatient Patient admitted to: Inpatient With expected LOS: >2 Midnights Practitioner: I am a practitioner with admitting privileges, knowledge of patient current condition, hospital course, and medical plan of care. Services: Services provided to patient in accordance with Admission requirements found in Title 42 Section 412.3 of the Code of Federal Regulations Patient History Date of Service: 01/15/21 Reason for admission: Nausea and vomiting History of Present Illness: 40-year-old woman with a history end-stage renal disease on hemodialysis. Hypertension and gastroparesis presented to the emergency department with a complaint of nausea and vomiting and abdominal pain. Patient stated she missed her dialysis because she felt too sick. Potassium level up to 6 in the ED. Patient was not tolerating po. She is admitted for further management. Allergies zolpidem tartrate [From Ambien] Allergy (Intermediate, Verified 10/17/16 23:08) Itching/Hives/Rash codeine [Codeine] Allergy (Verified 10/17/16 23:08) Hives fluphenazine enanthate [From Prolixin] Allergy (Verified 10/17/16 23:08) ARM NUMBNESS fluphenazine HCl [From Prolixin] Allergy (Verified 10/17/16 23:08) ARM NUMBNESS guaifenesin [From Prolex D] Allergy (Verified 10/17/16 23:08) Hives lisinopril Allergy (Verified 04/21/17 10:26) Anaphylaxis morphine Allergy (Verified 10/01/20 10:03) Itching Penicillins Allergy (Verified 10/17/16 23:08) Hives phenylephrine HCl [From Prolex D] Allergy (Verified 10/17/16 23:08) Hives nitrofurantoin Adverse Reaction (Verified 08/07/17 23:41) liver failure Home Medications: Calcium Acetate [Phoslo*] 2 cap PO TIDWM 03/05/20 Calcium Acetate [Phoslo*] 667 mg PO SNACKS 03/05/20 Divalproex Sodium [Divalproex Sodium ER] 500 mg PO BID 03/05/20 Linagliptin [Tradjenta] 5 mg PO DAILY 03/05/20 Sertraline [Zoloft*] 50 mg PO DAILY 03/05/20 Trazodone HCl 150 mg PO BEDTIME PRN PRN 09/15/20 Pantoprazole Sodium [Protonix] 1 tab PO DAILY 30 Days #30 tablet. 03/06/20 Gabapentin 1 tab PO BID 07/22/20 Metoprolol Succinate 25 mg PO DAILY 07/22/20 Pravastatin Sodium 1 tab PO DAILY 07/22/20 Doxazosin [Cardura*] 4 mg PO BEDTIME 09/30/20 Folic Acid/Vit B Complex and C [Dialyvite 800 Chewable Wafer] 1 tab PO DAILY 09/30/20 Furosemide [Lasix*] 40 mg PO BID 09/30/20 Metoclopramide [Reglan*] 5 ml PO TID 30 Days #45 ucup 10/01/20 Ondansetron [Zofran (Odt)*] 4 mg PO Q8H PRN 14 Days #30 tab 10/01/20 Ascorbate Calcium [Vitamin C] 500 mg PO TID #90 tablet 10/28/20 Sucralfate [Carafate*] 1 gm PO ACHS #90 tab 10/28/20 Zinc Sulfate [Zinc Sulfate*] 220 mg PO DAILY #30 cap 10/28/20 predniSONE [Prednisone*] 20 mg PO BID #21 tab 10/28/20 Calcitrol [Rocaltrol*] 0.5 mcg PO DAILY #30 cap 11/07/20 Hydralazine HCl 25 mg PO TID #90 tablet 11/07/20 Hydrocodone 10/APAP 325 [[place] 10/325*] 1 tab PO Q12H PRN #40 tab 11/07/20 Nepro Shake [Nepro*] 237 ml PO TID #60 can 11/07/20 - Past Medical/Surgical History Diabetic: Yes -: DM Type 2 -: Seizure disorder -: ESRD on HD -: DM Gastroparesis -: DM Neuropathy -: Insomnia -: Obesity -: JAYLA -: Hypertension -: Post traumatic stress disorder -: Schizoaffective disorder -: CHF, diastolic -: I/D of the right elbow -: 2 previous C-sections -: Tubal ligation Psychosocial/ Personal History: She is , she has 2 children, she does not work. - Family History Mother -: Hypertension, Diabetes, Cancer, Other (see notes) Notes: hypothyroid, asthma, breast cancer Father -: Diabetes, Cancer Notes: - stomach/ lung/ prostate cancer, diabetes - Social History Alcohol use: No CD- Drugs: No Caffeine use: Yes Review of Systems Other: Patient denied any chest pain, she denied any diarrhea. She denied any fever. Except as documented, all other systems reviewed and negative. Physical Examination - Physical Exam General: Alert, In no apparent distress, Oriented x3 HEENT: Atraumatic, Normocephalic, Mucous membr. moist/pink, EOMI, Sclerae nonicteric Neck: Supple, JVD not distended Respiratory: Clear to auscultation bilaterally, Normal air movement Cardiovascular: No edema, Regular rate/rhythm, Normal S1 S2 Gastrointestinal: Soft and benign, Non-distended, Tenderness (Mild epigastric tenderness) Musculoskeletal: No swelling, No tenderness Integumentary: No rashes, No erythema Neurological: Normal speech, Normal strength at 5/5 x4 extr, Cranial nerves 3-12 intact Lymphatics: No axilla or inguinal lymphadenopathy - Studies Laboratory Data (last 24 hrs) 01/15/21 07:24: WBC 5.00 D, Hgb 8.6 L, Hct 26.2 L, Plt Count 120 L 01/15/21 07:24: Sodium 139, Potassium 6.0 H*, BUN 34 H, Creatinine 6.26 H* D, Glucose 99, Total Bilirubin 0.5, AST 18, ALT 25, Alkaline Phosphatase 46, Lipase 121 Assessment and Plan - Problems (Diagnosis) (1) Intractable nausea and vomiting Current Visit: No Status: Acute (2) Anemia in chronic kidney disease Onset Date: 08/09/17 Current Visit: No Status: Chronic Qualifiers: (3) Diabetes mellitus Onset Date: 10/19/16 Current Visit: No Status: Chronic Qualifiers: Diabetes mellitus type: type 2 Diabetes mellitus halfway insulin use: without halfway use Diabetes mellitus complication status: with kidney complications Diabetes mellitus complication detail: with chronic kidney disease Chronic kidney disease stage: on chronic dialysis Qualified Code(s): E11.22 - Type 2 diabetes mellitus with diabetic chronic kidney disease; N18.6 - End stage renal disease; Z99.2 - Dependence on renal dialysis (4) Diabetic gastroparesis Onset Date: 10/19/16 Current Visit: No Status: Chronic (5) End stage renal disease on dialysis Current Visit: No Status: Chronic (6) History of peptic ulcer disease Current Visit: No Status: Chronic (7) Hypertension Onset Date: 10/19/16 Current Visit: No Status: Chronic (8) Obesity Onset Date: 06/08/16 Current Visit: No Status: Chronic Qualifiers: Obesity type: unspecified obesity type (9) Schizoaffective disorder Onset Date: 06/08/16 Current Visit: No Status: Chronic Qualifiers: Schizoaffective disorder type: unspecified (10) Hyperkalemia Current Visit: Yes Status: Acute - Plan Admit patient to the medical floor. Nephrology consulted for correction dialysis to treat hyperkalemia. IV Reglan for gastroparesis and vomiting. PPI and sucralfate for possible gastritis. Patient with a history of peptic ulcer disease. Pain management with IV opioid. Insulin sliding scale for glucose management. Monitor electrolytes. Repeat potassium level after dialysis. Kayexalate PRN for persistent hyperkalemia. - Advance Directives Does patient have a Living Will: Yes Does patient have a Durable POA for Healthcare: Yes
[2021-01-15 14:13] VITALS: BMI 29.0
[2021-01-15] MEDS: INSULIN -REGULAR HUMAN 50 UNIT/0.5 ML ML SQ SCH ×2 (15:06→21:00)
[2021-01-15] MEDS: METOCLOPRAMIDE 10 MG/2mL INJ IV SCH ×2 (15:06→22:55)
[2021-01-15] MEDS: ONDANSETRON 4 MG/2 ML VIAL IV PRN ×2 (15:07→22:55)
[2021-01-15] MEDS ORDERED: HEPARIN 5000 UNIT/ML 1 ML VIAL ONE (15:22)
[2021-01-15] MEDS ORDERED: HYDROMORPHONE HCL 0.5 MG/0.5 ML INJ IV ONE ×2 (16:22→17:00)
[2021-01-15] MEDS: HEPARIN 5000 UNIT/ML 1 ML VIAL SQ SCH (16:24)
[2021-01-15] MEDS ORDERED: HYDROMORPHONE HCL 0.5 MG/0.5 ML INJ ONE ×2 (16:40→23:02)
[2021-01-15 18:52] LABS: Urine Blood Trace-intact (Negative); Urine Glucose Trace (Negative); Urine Protein 2+ (Negative); Urine Specific Gravity 1.025 (1.005-1.030)
[2021-01-15] MEDS ORDERED: SUCRALFATE 1GM/10ML UCUP PO SCH (21:00)
--- NOTE | 2021-01-15 21:04 | P.CNS ---
Date of Consult: 01/15/21 Reason for Consult: ESRD/ Hyperkalemia Requesting Physician: zabrina hollis Chief Complaint: Nausea and vomiting History of Present Illness: 40 yo HF ESRD, DM presents to the ER with severe, persistent N/V with associated abdominal pain. Malaise, fatigue and weakness. Sent to the ER from dialysis. 40-year-old woman with a history end-stage renal disease on hemodialysis. Hypertension and gastroparesis presented to the emergency department with a complaint of nausea and vomiting and abdominal pain. Patient stated she missed her dialysis because she felt too sick. Potassium level up to 6 in the ED. Patient was not tolerating po. Allergies zolpidem tartrate [From Ambien] Allergy (Intermediate, Verified 10/17/16 23:08) Itching/Hives/Rash codeine [Codeine] Allergy (Verified 10/17/16 23:08) Hives fluphenazine enanthate [From Prolixin] Allergy (Verified 10/17/16 23:08) ARM NUMBNESS fluphenazine HCl [From Prolixin] Allergy (Verified 10/17/16 23:08) ARM NUMBNESS guaifenesin [From Prolex D] Allergy (Verified 10/17/16 23:08) Hives lisinopril Allergy (Verified 04/21/17 10:26) Anaphylaxis morphine Allergy (Verified 10/01/20 10:03) Itching Penicillins Allergy (Verified 10/17/16 23:08) Hives phenylephrine HCl [From Prolex D] Allergy (Verified 10/17/16 23:08) Hives nitrofurantoin Adverse Reaction (Verified 08/07/17 23:41) liver failure Home medications list reviewed: Yes Home Medications: Calcium Acetate [Phoslo*] 2 cap PO TIDWM 03/05/20 Calcium Acetate [Phoslo*] 667 mg PO SNACKS 03/05/20 Divalproex Sodium [Divalproex Sodium ER] 500 mg PO BID 03/05/20 Linagliptin [Tradjenta] 5 mg PO DAILY 03/05/20 Sertraline [Zoloft*] 50 mg PO DAILY 03/05/20 Trazodone HCl 150 mg PO BEDTIME PRN PRN 03/05/20 Pantoprazole Sodium [Protonix] 1 tab PO DAILY 30 Days #30 tablet. 03/06/20 Gabapentin 1 tab PO BID 07/22/20 Metoprolol Succinate 25 mg PO DAILY 07/22/20 Pravastatin Sodium 1 tab PO DAILY 07/22/20 Doxazosin [Cardura*] 4 mg PO BEDTIME 09/30/20 Folic Acid/Vit B Complex and C [Dialyvite 800 Chewable Wafer] 1 tab PO DAILY 09/30/20 Furosemide [Lasix*] 40 mg PO BID 09/30/20 Metoclopramide [Reglan*] 5 ml PO TID 30 Days #45 ucup 10/01/20 Ondansetron [Zofran (Odt)*] 4 mg PO Q8H PRN 14 Days #30 tab 10/01/20 Ascorbate Calcium [Vitamin C] 500 mg PO TID #90 tablet 10/28/20 Sucralfate [Carafate*] 1 gm PO ACHS #90 tab 10/28/20 Zinc Sulfate [Zinc Sulfate*] 220 mg PO DAILY #30 cap 10/28/20 predniSONE [Prednisone*] 20 mg PO BID #21 tab 10/28/20 Calcitrol [Rocaltrol*] 0.5 mcg PO DAILY #30 cap 11/07/20 Hydralazine HCl 25 mg PO TID #90 tablet 11/07/20 Hydrocodone 10/APAP 325 [[place] 10/325*] 1 tab PO Q12H PRN #40 tab 11/07/20 Nepro Shake [Nepro*] 237 ml PO TID #60 can 11/07/20 - Past Medical/Surgical History Diabetic: Yes -: DM Type 2 -: Seizure disorder -: ESRD on HD -: DM Gastroparesis -: DM Neuropathy -: Insomnia -: Obesity -: JAYLA -: Hypertension -: Post traumatic stress disorder -: Schizoaffective disorder -: CHF, diastolic -: I/D of the right elbow -: 2 previous C-sections -: Tubal ligation Psychosocial/ Personal History: She is , she has 2 children, she does not work. - Family History Mother Medical History: Hypertension, Diabetes, Cancer, Other (see notes) Notes: hypothyroid, asthma, breast cancer Father Medical History: Diabetes, Cancer Notes: - stomach/ lung/ prostate cancer, diabetes - Social History Smoking Status: Unknown if ever smoked Alcohol use: No CD- Drugs: No Caffeine use: Yes Place of Residence: Home Review of Systems 10-point ROS is otherwise unremarkable General: Weakness, Malaise Gastrointestinal: Nausea, Vomiting, Abdominal Pain Neurological: Weakness Physical Examination Temp Pulse Resp BP Pulse Ox 74 15 134/84 100 01/15/21 16:00 01/15/21 16:00 01/15/21 16:00 01/15/21 16:00 General: Oriented x3, Cooperative, Mild distress HEENT: Atraumatic Neck: Supple Respiratory: Diminished Cardiovascular: Regular rate/rhythm, Edema Gastrointestinal: Soft and benign, Non-distended Musculoskeletal: No clubbing, No contractures Integumentary: No rashes, No cyanosis Neurological: Normal speech Laboratory Data (last 24 hrs) 01/15/21 07:24: WBC 5.00 D, Hgb 8.6 L, Hct 26.2 L, Plt Count 120 L 01/15/21 07:24: Sodium 139, Potassium 6.0 H*, BUN 34 H, Creatinine 6.26 H* D, Glucose 99, Total Bilirubin 0.5, AST 18, ALT 25, Alkaline Phosphatase 46, Lipase 121 Conclusions/Impression: ESRD -HD MWF -Acute HD today Hyperkalemia -Acute HD -Renal Diet HTN with CKD/ CHF -Monitor BP Diastolic CHF -Low sodium diet DM II with CKD, Polyneuropathy, Gastroparesis -RISS -Reglan Anemia in CKD -Retacrit X1 -Monitor H&H DUSTIN/ Secondary HyperPTH -Start Vitamin D3 and Calcitriol Case reviewed with Dr. Stallworth Thank you kindly for the consultation.
[2021-01-15] MEDS ORDERED: HYDROMORPHONE HCL 0.5 MG/0.5 ML INJ IV STA (22:55)
[2021-01-15] MEDS ORDERED: HYDROMORPHONE HCL 1 MG/ML INJ IV PRN (22:58)
[2021-01-15 23:05] VITALS: O2SAT 98
[2021-01-15] MEDS ORDERED: DIPHENHYDRAMINE 50 MG/ML VIAL IV ONE (23:35)
[2021-01-15] MEDS ORDERED: DIPHENHYDRAMINE 50 MG/ML VIAL ONE (23:47)
[2021-01-16] MEDS: HEPARIN 5000 UNIT/ML 1 ML VIAL SQ SCH (01:00)
[2021-01-16] MEDS ORDERED: HEPARIN 5000 UNIT/ML 1 ML VIAL ONE (02:44)
[2021-01-16] MEDS ORDERED: PANTOPRAZOLE 40MG TABLET PO SCH (07:30)
--- NOTE | 2021-01-16 07:30 | EKG ---
Test Date: 2021-01-15 Test Time: 12:54:10 Top Stitcher: JONO MEASUREMENT RESULTS: Intervals: Rate: 60 NV: 152 QRSD: 82 QT: 456 QTc: 456 Leroy: P: 32 NV: 152 QRS: 54 T: 53 INTERPRETIVE STATEMENTS: Normal sinus rhythm Possible Left atrial enlargement Borderline ECG Compared to ECG 10/10/2020 06:06:05 No significant changes Electronically Signed On 01-16-21 07:28:26 CDT by Juan Hogan
[2021-01-16 07:35] LABS: Albumin 3.4 g/dL (3.4-5.0); Bilirubin Total 0.4 mg/dL (0.2-1.0); Magnesium 2.2 mg/dL (1.8-2.4); Phosphorus 5.1 mg/dL (2.5-4.9); Potassium 4.5 mmol/L (3.5-5.1); Protein, Total 6.5 g/dL (6.4-8.2); Thyroid Stimulating Hormone 4.64 uIU/mL (0.360-3.740)
[2021-01-16 07:49] LABS: Absolute Lymphocytes (CBC) 1.2 K/uL (0.7-4.9); Basophils % 1.2 % (0-1.3); Hematocrit 25.1 % (36.0-45.0); Lymphocytes % 25.4 % (15.3-44.8); MPV 10.6 fL (7.6-11.3); RBC Red Blood Cell Count 2.74 M/uL (3.86-4.86)
[2021-01-16] MEDS ORDERED: METOCLOPRAMIDE 10 MG/2mL INJ ONE (08:29)
[2021-01-16] MEDS ORDERED: HYDROMORPHONE HCL 0.5 MG/0.5 ML INJ ONE (08:30)
[2021-01-16] MEDS ORDERED: SUCRALFATE 1 GM TABLET ONE (08:30)
[2021-01-16] MEDS ORDERED: ONDANSETRON 4 MG/2 ML VIAL ONE (08:30)
[2021-01-16] MEDS ORDERED: PANTOPRAZOLE 40 MG INJ ONE (08:30)
[2021-01-16] MEDS ORDERED: MULTIVITAMINS,THERAPEUT 1 TAB PO SCH (09:00)
[2021-01-16] MEDS ORDERED: NEPRO SHAKE 237 ML CAN PO SCH (09:00)
[2021-01-16] MEDS ORDERED: CALCITROL 0.25 MCG CAP PO SCH (09:00)
[2021-01-16] MEDS ORDERED: VITAMIN D 5,000 UNIT CAP PO SCH (09:00)
[2021-01-16] MEDS ORDERED: EPOETIN ALFA-EPBX 10,000 UNIT/ML VIAL SQ SCH (09:00)
[2021-01-16 09:10] LABS: Anisocytosis 1+; Blood Morphology Comment NOTED (NOT SEEN); Ovalocytes SLIGHT; Platelet Estimate DECR; Platelets, Giant PRESENT; White Blood Cell Scan OK (OK)
--- NOTE | 2021-01-16 10:30 | P.PN ---
Date of Service: 01/16/21 Vital Signs Temp Pulse Resp BP Pulse Ox 98.0 F 57 16 193/91 H 100 01/15/21 20:00 01/16/21 04:00 01/16/21 04:00 01/16/21 04:00 01/16/21 04:00 Medications Acetaminophen (Acetaminophen 500 Mg Tab) 500 mg PO Q4HP PRN PRN Reason: TEMP > 100' F Calcitriol (Calcitrol 0.25 Mcg Cap) 0.5 mcg PO DAILY [facility] Cholecalciferol (Vitamin D 5,000 Unit Cap) 5,000 unit PO DAILY [facility] Enteral Nutritional Formula (Nepro Shake 237 Ml Can) 237 ml PO TID [facility] Heparin Sodium (Porcine) (Heparin 5000 Unit/Ml 1 Ml Vial) 5,000 unit SQ Q8HR [facility] Last Admin: 01/16/21 01:00 Dose: 5,000 unit Documented by: Heparin Sodium (Porcine) (Heparin 1,000 Unit/Ml Vial) 3,000 unit IV AFTER EACH DIALYSIS PRN PRN Reason: DIALYSIS Last Admin: 01/15/21 19:25 Dose: 3,000 unit Documented by: Hydromorphone HCl (Hydromorphone Hcl 1 Mg/Ml Inj) 0.5 mg IV Q6H PRN PRN Reason: Pain scale 8-10 (Severe) Last Admin: 01/16/21 09:25 Dose: 0.5 mg Documented by: Albumin Human (Albumin 25%) 50 mls @ 100 mls/hr IV EVERY HD [facility] Insulin Human Regular (Insulin -Regular Human 50 Unit/0.5 Ml Ml) 0 unit SQ [facility]; Protocol Last Admin: 01/15/21 21:00 Dose: Not Given Documented by: Mannitol (Mannitol 25% 12.5 Gm/50 Ml Vial) 12.5 gm IV EVERY HD PRN PRN Reason: For bp support at hd Metoclopramide HCl (Metoclopramide 10 Mg/2ml Inj) 5 mg IV [facility] Last Admin: 01/15/21 22:55 Dose: 5 mg Documented by: Ondansetron HCl (Ondansetron 4 Mg/2 Ml Vial) 4 mg IV Q6HP PRN PRN Reason: NAUSEA / VOMITING Last Admin: 01/15/21 22:55 Dose: 4 mg Documented by: Pantoprazole Sodium (Pantoprazole 40mg Tablet) 40 mg PO BIDAC [facility]; Protocol Sodium Chloride (Flush Normal Saline 10 Ml) 10 ml IV BID NOHEMI Last Admin: 01/15/21 22:55 Dose: 10 ml Documented by: Sucralfate (Sucralfate 1gm/10ml Ucup) 1 gm PO ACHS NOHEMI Last Admin: 01/15/21 22:30 Dose: 1 gm Documented by: Vitamin B Complex/Vit C/Folic Acid (Multivitamins,Therapeut 1 Tab) 1 tab PO DAILY NOHEMI Assessment/ Plan: Nephrology Persistent abdominal pain and nausea today. CPS stable without CP or SOB. No difficulty with HD yesterday. No acute events overnight. Vitals, medications, blood work and imaging reviewed in the chart. General: Oriented x3, Cooperative, No distress HEENT: Atraumatic Neck: Supple Respiratory: CTA Cardiovascular: Regular rate/rhythm, No Edema Gastrointestinal: Soft and benign, Non-distended Musculoskeletal: No clubbing, No contractures Integumentary: No rashes, No cyanosis Neurological: Normal speech Laboratory Data (last 24 hrs) 01/15/21 07:24: WBC 5.00 D, Hgb 8.6 L, Hct 26.2 L, Plt Count 120 L 01/15/21 07:24: Sodium 139, Potassium 6.0 H*, BUN 34 H, Creatinine 6.26 H* D, Glucose 99, Total Bilirubin 0.5, AST 18, ALT 25, Alkaline Phosphatase 46, Lipase 121 Conclusions/Impression: ESRD Proteinuria -HD MWF Hyperkalemia -Renal Diet HTN with CKD/ CHF -Monitor BP Diastolic CHF -Low sodium diet DM II with CKD, Polyneuropathy, Gastroparesis -RISS -Continue Reglan -Advance ADA/ Renal diet as tolerated Anemia in CKD -Retacrit PRN -Monitor H&H DUSTIN/ Secondary HyperPTH -Continue Vitamin D3 and Calcitriol Case reviewed with Dr. Bautista
--- NOTE | 2021-01-16 10:48 | RAD REPORT ---
EXAM DESCRIPTION: CT - Abdomen Pelvis Wo Contrast - 01/16/2021 10:34 am CLINICAL HISTORY: Abdominal pain COMPARISON: October 2020 TECHNIQUE: Computed axial tomography of the abdomen and pelvis was obtained. IV and oral contrast we re not requested. All CT scans are performed using dose optimization technique as appropriate and may include automated exposure control or mA/KV adjustment according to patient size. FINDINGS: The evaluation of solid organs, vessels and bowel is limited secondary to the lack of con trast administration. Cholelithiasis. Vague 27 millimeter low-density area posterior segment right lobe of the liver. Spleen, pancreas, adrenals and kidneys appear grossly normal. Vascular calcifications. There is no evidence of diverticulitis. Small amount of free fluid. Cardiomegaly IMPRESSION: Cholelithiasis Vague 27 millimeter low-density area posterior segment right lobe of the liver. Ultrasound is recomme nded Small amount of free fluid
[2021-01-16 11:25] VITALS: BP 132/82; TEMP 97.2
[2021-01-16] MEDS ORDERED: NA CHLORIDE 0.9% 50 ML ONE (13:12)
--- NOTE | 2021-01-16 14:26 | P.DS ---
Admission Date: 01/15/21 Discharge Date: 01/16/21 Disposition: ROUTINE DISCHARGE Reason for Admission: Nausea and vomiting - Problems (1) Intractable nausea and vomiting Status: Acute (2) Anemia in chronic kidney disease Onset Date: 08/09/17 Status: Chronic Qualifiers: (3) Diabetes mellitus Onset Date: 10/19/16 Status: Chronic Qualifiers: Diabetes mellitus type: type 2 Diabetes mellitus retirement insulin use: without retirement use Diabetes mellitus complication status: with kidney complications Diabetes mellitus complication detail: with chronic kidney disease Chronic kidney disease stage: on chronic dialysis Qualified Code(s): E11.22 - Type 2 diabetes mellitus with diabetic chronic kidney disease; N18.6 - End stage renal disease; Z99.2 - Dependence on renal dialysis (4) Diabetic gastroparesis Onset Date: 10/19/16 Status: Chronic (5) End stage renal disease on dialysis Status: Chronic (6) History of peptic ulcer disease Status: Chronic (7) Hypertension Onset Date: 10/19/16 Status: Chronic (8) Obesity Onset Date: 06/08/16 Status: Chronic Qualifiers: Obesity type: unspecified obesity type (9) Schizoaffective disorder Onset Date: 06/08/16 Status: Chronic Qualifiers: Schizoaffective disorder type: unspecified Qualified Code(s): F25.9 - Schizoaffective disorder, unspecified (10) Hyperkalemia Status: Acute Brief History of Present Illness: 40-year-old woman with a history end-stage renal disease on hemodialysis. Hypertension and gastroparesis presented to the emergency department with a complaint of nausea and vomiting and abdominal pain. Patient stated she missed her dialysis because she felt too sick. Potassium level up to 6 in the ED. Patient was not tolerating po. She was admitted for further management. Hospital Course: Patient admitted to the medical floor and started on IV Reglan for possible gastroparesis, IV Protonix and sucralfate gastritis and history of peptic ulcer. She tested positive for COVID 19. Apparently patient has been testing positive almost every time she is tested. She was seen by nephrology-Dr. Morin, and she underwent hemodialysis for hyperkalemia. Hyperkalemia resolved. Patient's symptoms improved the following day, she tolerated solid diet. Patient deemed clinically stable for discharge Vital Signs/Physical Exam: Temp Pulse Resp BP Pulse Ox 97.2 F 74 16 132/82 100 01/16/21 08:00 01/16/21 08:00 01/16/21 08:00 01/16/21 08:00 01/16/21 08:00 General: Alert, In no apparent distress, Oriented x3 HEENT: Mucous membr. moist/pink Neck: JVD not distended Respiratory: Other (Nonlabored breathing) Cardiovascular: No edema, Regular rate/rhythm, Normal S1 S2 Gastrointestinal: Soft and benign, Non-distended Musculoskeletal: No swelling Integumentary: No rashes Neurological: Normal strength at 5/5 x4 extr Laboratory Data at Discharge: WBC 4.50 K/uL (4.3-10.9) 01/16/21 06:43 Hgb 8.2 g/dL (12.0-15.0) L 01/16/21 06:43 Hct 25.1 % (36.0-45.0) L 01/16/21 06:43 Plt Count 85 K/uL (152-406) L* D 01/16/21 06:43 Sodium 143 mmol/L (136-145) 01/16/21 06:43 Potassium 4.5 mmol/L (3.5-5.1) 01/16/21 06:43 BUN 19 mg/dL (7-18) H 01/16/21 06:43 Creatinine 3.87 mg/dL (0.55-1.3) H D 01/16/21 06:43 Glucose 74 mg/dL (74-106) 01/16/21 06:43 Phosphorus 5.1 mg/dL (2.5-4.9) H 01/16/21 06:43 Magnesium 2.2 mg/dL (1.8-2.4) 01/16/21 06:43 Total Bilirubin 0.4 mg/dL (0.2-1.0) 01/16/21 06:43 AST 190 U/L (15-37) H D 01/16/21 06:43 ALT 132 U/L (12-78) H D 01/16/21 06:43 Alkaline Phosphatase 44 U/L (45-117) L 01/16/21 06:43 Lipase 121 U/L (73-393) 01/15/21 07:24 Home Medications: Calcium Acetate [Phoslo*] 2 cap PO TIDWM 09/15/20 Calcium Acetate [Phoslo*] 667 mg PO SNACKS 03/05/20 Divalproex Sodium [Divalproex Sodium ER] 500 mg PO BID 03/05/20 Linagliptin [Tradjenta] 5 mg PO DAILY 03/05/20 Sertraline [Zoloft*] 50 mg PO DAILY 03/05/20 Trazodone HCl 150 mg PO BEDTIME PRN PRN 03/05/20 Pantoprazole Sodium [Protonix] 1 tab PO DAILY 30 Days #30 tablet.dr 03/06/20 Gabapentin 1 tab PO BID 07/22/20 Metoprolol Succinate 25 mg PO DAILY 07/22/20 Pravastatin Sodium 1 tab PO DAILY 07/22/20 Doxazosin [Cardura*] 4 mg PO BEDTIME 09/30/20 Folic Acid/Vit B Complex and C [Dialyvite 800 Chewable Wafer] 1 tab PO DAILY 09/30/20 Furosemide [Lasix*] 40 mg PO BID 09/30/20 Metoclopramide [Reglan*] 5 ml PO TID 30 Days #45 ucup 10/01/20 Ondansetron [Zofran (Odt)*] 4 mg PO Q8H PRN 14 Days #30 tab 10/01/20 Ascorbate Calcium [Vitamin C] 500 mg PO TID #90 tablet 10/28/20 Sucralfate [Carafate*] 1 gm PO ACHS #90 tab 10/28/20 Zinc Sulfate [Zinc Sulfate*] 220 mg PO DAILY #30 cap 10/28/20 Calcitrol [Rocaltrol*] 0.5 mcg PO DAILY #30 cap 11/07/20 Hydralazine HCl 25 mg PO TID #90 tablet 11/07/20 Hydrocodone 10/APAP 325 [[place] 10/325*] 1 tab PO Q12H PRN #40 tab 11/07/20 Nepro Shake [Nepro*] 237 ml PO TID #60 can 11/07/20 Cholecalciferol (Vitamin D3) [Vitamin D 5,000 IU Cap*] 5,000 unit PO DAILY #30 cap 01/16/21 New Medications: Cholecalciferol (Vitamin D3) [Vitamin D 5,000 IU Cap*] 5,000 unit PO DAILY #30 cap Diet: ADA Activity: Ad monique Followup: Aglieco,Jose Miguel, DO [Primary Care Provider] - 1-2 Weeks Time spent managing pt's care (in minutes): 33
== END 2021-01-16 14:50 | disposition home or self-care (01) | DRG 73 ==
LOC: ER 05:31 → ERHOLD 13:52
PROVIDERS: ADMIT Internal Medicine; ATTEND Internal Medicine
PROC: 5A1D70Z Performance of Urinary Filtration, Intermittent, Less than 6 Hours Per Day (ICD-10-PCS; principal; 2021-01-15)
DX: E11.43 Type 2 diabetes mellitus with diabetic autonomic (poly)neuropathy (principal); N18.6 End stage renal disease; U07.1 COVID-19; I50.32 Chronic diastolic (congestive) heart failure; I13.2 Hypertensive heart and chronic kidney disease with heart failure and with stage 5 chronic kidney disease, or end stage renal disease; N25.81 Secondary hyperparathyroidism of renal origin; K31.84 Gastroparesis; E87.5 Hyperkalemia; K29.60 Other gastritis without bleeding; E11.22 Type 2 diabetes mellitus with diabetic chronic kidney disease; F17.210 Nicotine dependence, cigarettes, uncomplicated; N25.0 Renal osteodystrophy; F25.9 Schizoaffective disorder, unspecified; D63.1 Anemia in chronic kidney disease; E66.9 Obesity, unspecified; Z88.0 Allergy status to penicillin; Z88.5 Allergy status to narcotic agent; Z88.8 Allergy status to other drugs, medicaments and biological substances; Z99.2 Dependence on renal dialysis; Z91.15 Patient's noncompliance with renal dialysis; Z79.52 Long term (current) use of systemic steroids; Z79.899 Other long term (current) drug therapy; Z98.51 Tubal ligation status; Z68.29 Body mass index [BMI] 29.0-29.9, adult
CPT/HCPCS: 36415; 74176; 80048; 80053; 80076; 81003; 82947; 83690; 83735; 84100; 84439; 84443; 85025; 90935; 93005; 94760; 96372; 96374; 96375; 99285; C9113; J1170; J1200; J1644; J2175; J2405; J2765; Q5106; U0003

== ENCOUNTER 2021-02-17 05:39 | Observation (INO) | payer OTHER ==
--- OUTSIDE RECORDS SUMMARY | 2021-02-17 05:54 | XMS REPORT | Continuity of Care Document ---
:1980 Author Organization [facility] t Address [address] [place] [address] Care Team Providers Name Role Phone Sharpless Primary Care Physician LAKE Attending Clinician Unavailable Josh Attending Clinician Chano Wright Attending Clinician Marshall BURNS, K.H. Attending Clinician Doctor Unassigned, Name Attending Clinician Unavailable Carlos BURNS Attending Clinician Manuel Sanchez DO Attending Clinician Naun Cleaning DPM Attending Clinician Chivo Attending Clinician Unavailable Chivo Attending Clinician Unavailable HAWA BHAKTA Attending Clinician Unavailable Yaquelin Attending Clinician Yuriy Juárez Attending Clinician Cem Valdez Attending Clinician Chano Wright Admitting Clinician Chivo Admitting Clinician Unavailable HAWA BAHKTA Admitting Clinician Unavailable Phu Cha Admitting Clinician Yuriy Juárez Admitting Clinician Payers Payer Name Policy Type Policy Number Effective Date Expiration Date Julissa acosta MEDICARE PART A [id number] 2014 2024 AND B 00:00:00 00:00:00 Problems Condition Condition Condition Status Onset Resolution Last Treating Co mments Source Name Details Category Date Date Treatment Clinician Date GASTROPARE Diagnosis Active 2021-02-10 Memoria HELENA/IBS-D 7- 21:41:00 l /ANEMIA 00:00: [place] GASTROPARE 00 HELENA/IBS-D /ANEMIA Active 01/03/2021 [facility] NEW Diagnosis Active 2020-12-24 Mem oria PATIENT GI 10-14 10:39:00 l CONSULT NEW 00:00: Vin REFRACTORY PATIENT GI 00 GASTRO CONSULT REFRACTORY GASTRO Active 10/14/2020 [facility] NEW Diagnosis Active 2018-07-26 Mem oria EVALUATION 07-12 09:39:00 l NEW 00:00: Vin EVALUATION 00 Active 07/12/2018 [facility] Liver Liver Disease Active [facility] failure[facility] acute [facility] 00 [place] SANJUANA (acute SANJUANA (acute Disease Active [facility] kidney kidney 7-[facility] injury) injury) 00:00: Medical 00 [place] CKD CKD Disease Active [facility] (chronic (chronic [facility] kidney kidney 00:00: Medical disease) disease) 00 Center Acute Acute Disease Active [facility] encephalop encephalop 7-16 [facility] - athy athy 00:00: Medical 00 [place] Ulcer of Ulcer of Disease [facility] toe [facility] - left foot left foot 00:00: Medi tawnya 00 Center Peripheral Peripheral Disease Active [facility] neuropathy neuropathy 7-16 [facility] - 00:00: Medical 00 [place] Hyperglyce Hyperglyce Disease Active [facility]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 00:00: Medical diabetes diabetes 00 Center mellitus mellitus Gastropare Gastropare Disease Active [facility] sis due to sis due to -16 [facility] - DM DM 00:00: Medical 00 [place] Cyclic Cyclic Disease Active [facility] vomiting vomiting [facility] - syndrome syndrome 00:00: Medica l 00 Center Anxiety Anxiety Disease Active [facility] -[facility] - [facility] 00 [facility] Bipolar Bipolar Disease Active [facility] disorder disorder -[facility] - 00:[facility] Medical 00 Center Hypertensi Hypertensi Disease Active [facility] ve ve [facility] - emergency emergency 00:00: Medi tawnya 00 Center ACUTE RESP Diagnosis Active 2016-09-09 Memoria FAILURE 2- 09:11:00 l ACUTE 00:00: [place] RESP 00 FAILURE Active 07/23/2016 [facility] CONGESTION Diagnosis Active 2016-07-24 Memoria AMD 2-02 01:49:00 l DIARRHEA 00:00: [place] CONGESTION 00 AMD DIARRHEA Active 07/23/2016 [facility] SOB/SWELLI Diagnosis Active 2015-062016-06-10 Memoria NG 2- 15:48:00 l 00:00: [place] SOB/SWELLI 00 NG Active 6 [facility] CHF/RENAL Diagnosis Active 2015-062016-06-24 Memoria DISEASE 2- 15:35:00 l 00:00: Vin CHF/RENAL 00 DISEASE Active 06/10/2016 [facility] ABDOMINAL Diagnosis Active 2014-06-26 Memoria PAIN, 1 05:44:00 l SEIZURES 00:00: Vni ABDOMINAL 00 PAIN, SEIZURES Active 06/26/2013 [facility] ABD PAIN Diagnosis Active 2012-062013-04-19 M emoria 0 21:51:00 l ABD PAIN 19:00: Jake n 00 Active 04/14/2013 [facility] GASTROPERI Diagnosis Active 2012-09-13 Memoria SIS 2- 15:17:00 l 00:00: Vin GASTROPERI 00 SIS Active 08/02/2012 [facility] ABDOMINAL Diagnosis Active 2012-03-14 Memoria PAIN 03-14 16:56:00 l 14:00: [place] ABDOMINAL 00 PAIN Active 03/14/2012 [facility] NAUSEA, Diagnosis Active 2012-03-14 Me moria VOMITING 03-14 13:25:00 l NAUSEA, 08:00: [place] VOMITING 00 Active 03/14/2012 [facility] N/V Diagnosis Active 2011-12-08 Mem oria INABILITY 11-27 11:14:00 l TO N/V 00:00: [place] TOLERATE INABILITY 00 PO TO TOLERATE PO Active 2 [facility] VOMITTING Diagnosis Active 2011-11-28 Memoria 11-27 16:28:00 l 00:00: [place] VOMITTING 00 Active 11/28/2011 [facility] VOMITTING, Diagnosis Active 2011-09-18 Memoria HIGH BLOOD 09-17 09:45:00 l SUGAR 00:00: [place] VOMITTING, 00 HIGH BLOOD SUGAR Active 09/18/2011 [facility] Methicilli Problem Active 2021-01-31 M emoria n 08-31 22:29:25 l resistant 00:00: Vin Staphyloco Methicilli 00 ccus n aureus resistant (organism) Staphyloco ccus aureus (organism) Active 09/01/2011 Problem 01/31/2021 09/01/11 - Elbow woundProbl em added by Discern Expert. [facility] MRSA Problem Active 2012-03-16 Memor ia 08-31 09:11:30 l MRSA 00:00: [place] 00 Active 09/01/2011 Problem 03/16/2012 - Elbow [id number] emily added by Discern Expert. [facility] VOMITING, Diagnosis [facility] 08-30 03:19:00 l SUGAR 00:00: [place] READINGS VOMITING, 00 HIGH BLOOD SUGAR READINGS HIGH Active 08/31/2011 [facility] ELBOW Diagnosis Active 2011-09-10 Mem oria ABSCESS/HY -12 16:26:00 l PERGLYCEMI ELBOW 00:00: Nidia nn A ABSCESS/HY 00 PERGLYCEMI A Active 08/31/2011 [facility] Hypokalemi Problem Active 2012-03-16 M emoria a 3- 09:11:30 l 00:00: Vin Hypokalemi 00 a Active 08/23/2011 Problem 03/16/2012 [facility] DKA Diagnosis Active 2011-08-24 Mem oria 2- 11:27:00 l DKA 00:00: [place] 00 Active 08/19/2011 [facility] VOMITING Diagnosis Active 2011-08-19 M emoria 16:21:00 l VOMITING 00:00: Jake n 00 Active 08/19/2011 [facility] Final: Problem 2016-08-02 Memor ia Acute 02:46:22 l respirator Final: Herm naeem y failure, Acute unspecifie respirator d whether y failure, with unspecifie hypoxia or d whether hypercapni with a hypoxia or hypercapni a 08/02/2016 [facility] Hypoglycem Problem Inactiv 2012-03-16 Memoria ia e 09:11:30 l Vin Hypoglycem ia Inactive Problem 03/16/2012 [facility] Hypoglycem Problem Inactiv 2013-04-22 Memoria ia e 04:46:33 l (disorder) Jake n Hypoglycem ia (disorder) Inactive Problem 04/22/2013 [facility] Diabetes Problem Resolve 2021-01-31 Me moria mellitus d 22:29:25 l (disorder) Diabetes He rmann mellitus (disorder) Resolved Problem 01/31/2021 [facility] Gastropare Problem Resolve 2021-01-31 Memoria sis d 22:29:25 l (disorder) Jake n Gastropare sis (disorder) Resolved Problem 01/31/2021 [facility] Hypertensi Problem Resolve 2021-01-31 Memoria ve d 22:29:25 l disorder, Vin systemic Hypertensi arterial ve (disorder) disorder, systemic arterial (disorder) Resolved Problem 01/31/2021 [facility] Psychiatri Problem Resolve 2021-01-31 Memoria c d 22:29:25 l behavioral Jake n disability Psychiatri (finding) c behavioral disability (finding) Resolved Problem 01/31/2021 [facility] Seizure Problem Resolve 2021-01-31 Mem oria (finding) d 22:29:25 l Seizure [place] (finding) Resolved Problem 01/31/2021 [facility] Hypertensi Problem Active 2012-03-16 M emoria on 09:11:30 l Vin Hypertensi on Active Problem 2 [facility] Hypomagnes Problem Active 2013-04-22 M emoria emia 04:46:33 l [place] Hypomagnes emia Active Problem 04/22/2013 [facility] Nausea and Problem Active 2012-03-16 M emoria vomiting 09:11:30 l Nausea Vin and vomiting Active Problem 03/16/2012 [facility] ENCNTR FOR Diagnosis Active 2020-12-24 Memoria GENERAL 10:39:00 l ADULT ENCNTR [place] MEDICAL FOR EXAM W/ GENERAL ADULT MEDICAL EXAM W/ Active [facility] DMI Diagnosis Active 2011-08-24 Mem oria KETOACD 11:27:00 l UNCONTROLD DMI Jake n KETOACD UNCONTROLD Active [facility] OTHER Diagnosis Active 2011-09-10 Mem oria GENERAL 16:26:00 l SYMPTOMS OTHER [place] GENERAL SYMPTOMS Active [facility] HEART Diagnosis Active 2016-06-24 Mem oria FAILURE, 15:35:00 l UNSPECIFIE HEART Nidia nn D FAILURE, UNSPECIFIE D Active [facility] ACUTE Diagnosis Active 2016-09-09 Mem oria RESPIRATOR 09:11:00 l Y FAILURE, ACUTE Nidia nn UNSP W RESPIRATOR HYPOXI Y FAILURE, UNSP W HYPOXI Active [facility] Nausea and Problem Resolve 2021-01-31 2021-01-31 Memoria vomiting d 6-10 22:29:25 22:29:25 l (disorder) Nausea 00:00: Herm naeem and 00 vomiting (disorder) Resolved 11/29/2011 Problem 01/31/2021 [facility] Hypokalemi Problem Resolve 2021-01-31 2021-01-31 Memoria a d 3-04 22:29:25 22:29:25 l (disorder) 00:00: Jake n Hypokalemi 00 a (disorder) Resolved 08/23/2011 Problem 01/31/2021 [facility] Disorder Problem Resolve 2021-01-31 2021-01-31 Memoria of d 3-04 22:29:25 22:29:25 l magnesium Disorder 00:00: Her braden metabolism of 00 (disorder) magnesium metabolism (disorder) Resolved 08/23/2011 Problem 01/31/2021 [facility] Hyperglyce Problem Resolve 2021-01-31 2021-01-31 Memoria maryam d 3- 22:29:25 22:29:25 l (disorder) 00:00: Jake n Hyperglyce 00 maryam (disorder) Resolved 08/20/2011 Problem 01/31/2021 [facility] Ketoacidos Problem Resolve 2021-01-31 2021-01-31 Memoria is in d 2- 22:29:25 22:29:25 l diabetes 00:00: Vin mellitus Ketoacidos 00 (disorder) is in diabetes mellitus (disorder) Resolved 08/19/2011 Problem 01/31/2021 [facility] DKA Problem Resolve 2013-04-22 2013-04-22 Memoria (diabetic d 04:46:33 04:46:33 l ketoacidos DKA 00:00: Jake gonzalez es) (diabetic 00 ketoacidos es) Resolved 08/19/2011 Problem 04/22/2013 [facility] History of Past Illness Condition Condition Condition Status Onset Resolution Last Treating Co mments Source Name Details Category Date Date Treatment Clinician Date Discharge Problem 2014-06-28 2014-06-28 Memoria Diagnosis: 1-06 16:34:37 16:34:37 l Gastropare 06:00: Jake gonzalez sis Discharge 00 Diagnosis: Gastropare sis 06/26/2014 06/28/2014 [facility] Hyperglyce Problem Inactiv 2012-03-16 2012-03-16 Memoria maryam e 3- 09:11:30 09:11:30 l 00:00: Vin Hyperglyce 00 maryam Inactive 08/20/2011 Problem 03/16/2012 [facility] Allergies, Adverse Reactions, Alerts Allergy Allergy [...] Breath 01-03 [facility] 00 [place] Guaifene Drug Active Other (See numbness [facility] Allergy Comments) 01-03 [facility] - [facility]: [facility] 00 [place] penicill penicill Active Memori a ins ins l [place] codeine codeine Active Memoria l [place] morphine morphine Active Memori a l [place] lisinopr lisinopr Active Memori a il il l Vin Adhesive Adhesive Active Memori a Tape Tape l [place] Ambien Ambien Active Memoria l Vin Prolex Prolex Active Memoria DM DM l [place] Social History Social Habit Start Date Stop Date Quantity Comments Source Sex Assigned At [facility] Social History 2020[facility]12[facility]24 [facility] 15[facility]49[facility]37 Cigarettes smoked 2017-12-17 2017-12-17 [facility] Мария - current (pack per 00:00:00 00:00:00 [facility] day) - Reported Cigarette 2017-12-17 2017-12-17 [facility] PatiNewser - pack-years 00:00:00 00:00:00 [facility] Alcohol intake 2017-12-17 2017[facility]12-17 [facility] non-drinker of Medical Ce nter alcohol (finding) Tobacco Comment 2017-01-03 2017-01-03 patient stated [facility] - 00:[facility]:00 00:00:00 she stopped [address] month ago. History of tobacco 2016-12-[address] [facility] - use 00:00:00 [facility] Smoking Status Start Date Stop Date Source Former smoker 2017-12-17 00:00:00 2017-12-17 00:00:00 [facility] Medications Ordered Filled Start Stop Current Ordering Indication Dosage Frequency Signature Comments Components Source Medication Medication Date Date Medication? Clinician (SIG) Name Name tramadol No Notes: Not Mem oria hydrochlori 01-29 to exceed l de 50 MG 11:14: 400mg/day. Her braden Oral Tablet 00 (Same As: Ultram) Simethicone No Notes: Mendoza janice 01-29 (Same as: l 01:36: Mylicon) [place] 00 epoetin Yes 2,000 unit Mendoza janice giovanny-epbx 10 = 1 mL, l 1999 19:37: IV, Vin units/mL 00 , preservativ to be e-free given at injectable post solution Dialysis sessions, 0 Refill(s) gabapentin Yes 300 mg = 1 M emoria 300 MG Oral 8-10 cap, PO, l Capsule 19:34: , # Herm naeem 00 13 cap, 0 Refill(s) amLODIPine Yes 10 mg = 1 Me moria 10 mg oral 8-10 tab, PO, l tablet 19:33: Daily, # Vin 00 30 tab, 2 Refill(s) busPIRone Yes 7.5 mg = 1 Me moria 7.5 mg oral 8-10 tab, PO, l tablet 19:33: BID, 0 [place] 00 Refill(s) buPROPion Yes 75 mg = 1 Mem oria 75 mg oral 8-10 tab, PO, l tablet 19:33: Daily, # [place] 00 14 tab, 0 Refill(s) Norvasc No Notes: Memoria 01-28 (Same as: l 17:35: Norvasc) Dextrose No 25 gm, 50 Mendoza janice 50% Syringe 8-10 mL, Route: l (D50W) 13:40: IVP, Drug Jake n 00 Form: INJ, Dosing Weight 74.5, kg, ONCE, Start date: 01/28/21 8:40:00 CDT, Stop date: 01/28/21 8:40:00 CDT, Dextrose 50%: 25 gm = 50 mL, 0 Epogen No Notes: Memoria 01-27 WASTE: F/P l 22:00: - Red; E Red MEDICIATIO N WASTE Product Size: 2,000 unit Product Wasted: ____unit D5NS 1,000 No 1,000 mL, Me moria mL 01-27 Rate: 20 l 20:28: ml/hr, Infuse over: 50 hr, Route: IV, Dosing Weight 74.5 kg, Total Volume: 1,000, Start date: 01/27/21 15:28:00 CDT, Duration: 30 day, Stop date: 02/26/21 15:27:00 CDT, BSA: 1.79 m2, 0 Tylenol No Notes: Do Memor ia 01-27 not exceed l 09:29: 4 gm/day. [place] 00 (Same as: Tylenol) tramadol No Notes: Not Mem oria hydrochlori 01-27 to exceed l de 50 MG 09:29: 400mg/day. Her braden Oral Tablet 00 (Same As: Ultram) heparin No Notes: Memoria - porcine l 02:00: heparin Magnesium No Notes: Memori a Oxide 01-23 (Same as: l 22:54: Mag-Ox Vin 400) Magnesium oxide 392fh=631h g elemental magnesium Dose=____m g magnesium oxide (___mg elemental magnesium) Coreg No Notes: Memoria 8-05 Give with l 02:00: food. Vin (Same As: Coreg) Buspar No Notes: Memoria 8-04 (Same As: l 22:00: BuSpar) [place] Fentanyl No Notes: Memoria 8-04 (Same as: l 21:06: Sublimaze) Vin 00 Preservat montse free. Norvasc No Notes: Memoria 8-04 (Same as: l 16:47: Norvasc) Vin Wellbutrin No Notes: Memor ia 8-04 (Same As: l 16:00: Wellbutrin ) pantoprazol No Notes: For Memoria e 8-04 IV push l 14:00: reconstitu [place] 00 te with 10 ml 0.9% sodium chloride and push over 2 minutes. (Same as: Protonix) Aspirin 81 No Notes: Memor ia MG Chewable 8- Take with l Tablet 14:00: food. Vin 00 Vitamin D3 No Notes: Memor ia 5000 intl 8-04 Same as : l units oral 14:00: Vitamin D3 H ermann capsule 00 24 HR No Notes: Memoria Divalproex 8-04 Hazardous l Sodium 500 14:00: Drug Group H ermann MG Extended 00 2:Non-anti Release neoplastic Tablet Hazardous [Depakote] Drug -- Refer to safe handling procedure PPE Matrix (Same as: Depakote ER) Once daily dosing; indicated for migraines. Divalproe x sodium extended-r elease tab. Do not chew or crush. Doxazosin No Notes: Memori a 8-04 (Same as: l 14:00: Cardura) [place] 00 Furosemide No Notes: Memor ia 40 MG Oral 8-04 (Same as: l Tablet 14:00: Lasix) [place] 00 May cause GI upset. Give with food or milk. Tradjenta No 5 mg, 1 Memor ia 8-04 tab, l 14:00: Route: PO, Drug form: TAB, Daily, Dosing Weight 72, kg, Start date: 01/22/21 9:00:00 CDT Metoprolol No Notes: Memor ia Succinate 8- (Same as: l ER 100 mg 14:00: Toprol XL) He rmann oral 00 May split tablet, tab, but extended do not release crush. Pravastatin No Notes: Mendoza janice 8-04 (Same as: l 14:00: Pravachol) Zoloft No Notes: Memoria 8-04 (Same as: l 14:00: Zoloft) Tramadol No Notes: Not Mem oria 8-04 to exceed l 09:44: 400mg/day. Vin (Same As: Ultram) Tylenol No Notes: Do Memor ia 8-04 not exceed l 09:44: 4 gm/day. Vin (Same as: Tylenol) Fentanyl No Notes: Memoria 8-04 (Same as: l 09:44: Sublimaze) Preservat montse free. Fentanyl No Notes: Memoria 8-04 (Same as: l 04:46: Sublimaze) Preservat montse free. Fentanyl No Notes: Memoria 8-04 (Same as: l 02:01: Sublimaze) Preservat montse free. Coreg No Notes: Memoria 01-22 Give with l 02:00: food. (Same As: Coreg) Saline No Notes: Memoria Flush 0.9% 01-22 Same as: l 02:00: BD Posiflush Sterile Valproate No 1,000 mg, Mem oria 01-22 2 tab, l 02:00: Route: PO, Drug form: ERTAB, Bedtime, Start date: 01/21/21 21:00:00 CDT, Duration: 30 day, Stop date: 02/19/21 21:00:00 CDT, 0 heparin No Notes: Memoria 01-21 porcine l 21:00: heparin Dextrose No 12.5 gm, Memor ia 50% Syringe 01-21 25 mL, l (D50W) 20:01: Route: IVP, Drug Form: INJ, Dosing Weight 74.5, kg, PRN, PRN Blood Glucose Results, Start date: 01/21/21 15:01:00 CDT, Duration: 30 day, Stop date: 02/20/21 15:00:00 CDT, 0 Glucagon No 1 mg, Memoria 01-21 Route: IM, l 20:01: Drug form: PDR/INJ, PRN, Dosing Weight 74.5, kg, PRN Blood Glucose Results, Start date: 01/21/21 15:01:00 CDT, Duration: 30 day, Stop date: 02/20/21 15:00:00 CDT, 0 Insulin No Notes: Memoria Lispro 01-21 (Same as: l 20:01: Humalog) Roll in palms of hands gently; Do not shake vigorously . WASTE: F/P - Black; E - Municipal Trash Bin Stable for 28 days at room temperatur e. Expires in days from ____Date gabapentin No Notes: Memor ia 300 MG Oral 01-21 (Same as: l Capsule 19:58: Neurontin) Herm naeem 00 Cardene 40 No Notes: Memor ia mg in NS 01-21 Same as: l 200 mL 18:26: Cardene Vin (Titrate.) 00 Concentrat IV 40 mg ion: (0.2 mg /1 ml ) Cyproheptad No 4 mg, 1 Mem oria ine 01-21 tab, l 18:00: Route: PO, Vin 00 Drug form: TAB, TID, Dosing Weight 72, kg, Start date: 01/21/21 13:00:00 CDT, Duration: 30 day, Stop date: 02/20/21 9:00:00 CDT Albuterol No Notes: SEE Me nuñez 01-21 RT l 17:49: DOCUMENTAT Vin ION (Same as: Proventil) albuterol No 180 Memoria 90 mcg/inh 01-21 microgram, l inhalation 17:33: 2 puff, Herm naeem aerosol 00 Route: INHALATION , Drug Form: AERO/A, Dosing Weight 72, kg, PRN, PRN Wheezing, Start date: 01/21/21 12:33:00 CDT, Duration: 30 day, Stop date: 02/20/21 12:32:00 CDT Nystatin No Notes: Memoria 100 UNT/MG 01-21 (Same l Topical 17:31: as:Mycosta Herm naeem Powder 00 tin, Nilstat) For external use only. Saline No Notes: Memoria Flush 0.9% 01-21 Same as: l 17:31: BD Vin Posiflush Sterile propofol 10 No Notes: If M emoria mg/mL 01-21 Diprivan - l (Titrate.) 17:31: change Nidia nn IV 1,000 mg 00 bottle & tubing every 12 hr Per state nursing law propofol can only be given by a nurse if patient is intubated or being intubated (unless the nurse is a PLANNING MANAGEMENT IT SPECIALIST). Same as: Diprivan midazolam No Route: IV, Ar moria (ANES) 01-21 Drug form: l 17:18: SOLN, Vin 00 ONCE, Stop date: 01/21/21 12:18:00 CDT fentaNYL No Route: IV, Mem oria (ANES) 01-21 Drug form: l 17:18: INJ, ONCE, Stop date: 01/21/21 12:18:00 CDT niCARdipine No Route: IV, Memoria (ANES) 01-21 Drug form: l 17:18: INJ, ONCE, Stop date: 01/21/21 12:18:00 CDT glycopyrrol No Route: IV, Memoria ate (ANES) 01-21 Drug form: l 16:20: INJ, ONCE, Stop date: 01/21/21 11:20:00 CDT EPINEPHrine No Route: IV, Memoria (ANES) 01-21 Drug form: l 16:20: INJ, ONCE, Stop date: 01/21/21 11:20:00 CDT ePHEDrine No Route: IV, Me moria (ANES) 01-21 Drug form: l 16:09: INJ, ONCE, Stop date: 01/21/21 11:09:00 CDT phenylephri No Route: IV, Memoria ne (ANES) 01-21 Drug form: l 16:09: INJ, ONCE, Stop date: 01/21/21 11:09:00 CDT lidocaine No Route: IV, Me moria (ANES) 01-21 Drug form: l 14:51: INJ, ONCE, Stop date: 01/21/21 9:51:00 CDT propofol No Route: IV, Mem oria (ANES) 01-21 Drug form: l 14:51: INJ, ONCE, Stop date: 01/21/21 9:51:00 CDT propofol No Route: IV, Mem oria (ANES) 10 01-21 Drug form: l mg 14:20: INJ, Start date: 01/21/21 9:20:00 CDT, Stop date: 01/21/21 10:20:00 CDT Isolyte S No Route: IV, Me moria PH 7.4 01-21 Total l (ANES) 1000 14:17: Volume: Her braden mL 00 1,000, Start date: 01/21/21 9:17:00 CDT, Stop date: 01/21/21 10:17:00 CDT Hydralazine No Notes: Mendoza janice 01-21 (Same as: l 13:16: Apresoline ) Push over 5 minutes Labetalol No 10 mg, 2 Mendoza janice 01-21 mL, Route: l 13:16: IVP, Drug form: INJ, Q5Min, Dosing Weight 72, kg, PRN Elevated BP, Start date: 01/21/21 8:16:00 CDT, Duration: 5 doses or times, Stop date: 01/22/21 0:00:00 CDT, 0 Fentanyl No Notes: Memoria 01-21 (Same as: l 13:16: Sublimaze) Preservat montse free. Hydromorpho No Notes: Mendoza janice ne 01-21 Same as l 13:16: Dilaudid Flumazenil No Notes: Memor ia 01-21 (Same as: l 13:16: Romazicon) Naloxone No Notes: Memoria 01-21 Same as l 13:16: Narcan Albuterol No Notes: SEE Me moria 0.83 MG/ML 01-21 RT l Inhalant 13:16: DOCUMENTAT Her braden Solution 00 ION (Same as: Proventil) Ondansetron No Notes: Mendoza janice 01-21 (Same as: l 13:16: Zofran) MEDICATION WASTE Product Size: 4 mg Product Wasted: ___ mg Promethazin No Notes: Do M emoria e 01-21 not give l 13:16: IV push. (Same as: Phenergan) Simethicone No Notes: Mendoza janice 01-21 (Same as: l 13:16: Mylicon, [place] 00 Phazyme, Genasyme) calcium No See Memoria acetate 667 8-03 Instructio l MG Oral 12:59: ns, 1 cap Nidia nn Capsule 00 PO with meals, 0 Refill(s) rifaximin Yes 550 mg = 1 Me moria 550 MG Oral 7-06 tab, PO, l Tablet 18:46: TID, # 42 Jake n [XIFAXAN] 00 tab, 2 Refill(s), Pharmacy: [facility], 154.94, cm, 12/24/20 10:43:00 CDT, Height, 71.818, kg, 12/24/20 10:43:00 CDT, Weight {2 (480 ML 2020- Yes See Memoria Magnesium - Instructio l Sulfate 18:12: ns, take Jake n 0.0277 00 as MEQ/ML / directed, potassium give sulfate clenpiq if 0.0374 not MEQ/ML / covered by sodium insurance, sulfate # 1 ea, 0 0.257 Refill(s), MEQ/ML Oral Pharmacy: Solution) } [facility] [Suprep 808, Bowel Prep 154.94, Kit] cm, 12/24/20 10:43:00 CDT, Height, 71.818, kg, 12/24/20 10:43:00 CDT, Weight Citric Acid Yes 160 mL, Mem oria 75 MG/ML / 7-06 PO, PRE l Magnesium 18:11: OP, # 1 Nidia nn Oxide 21.9 00 ea, 0 MG/ML / Refill(s), picosulfate Pharmacy: sodium [facility] 0.0625 Pharmacy MG/ML Oral 808, Solution 154.94, [Clenpiq] cm, 12/24/20 10:43:00 CDT, Height, 71.818, kg, 12/24/20 10:43:00 CDT, Weight cyproheptad Yes 4 mg = 1 Me moria ine 4 mg 7- tab, PO, l oral tablet 18:10: TID, X 30 H ermann day, # 90 tab, 3 Refill(s), Pharmacy: [facility], 154.94, cm, 12/24/20 10:43:00 CDT, Height, 71.818, kg, 12/24/20 10:43:00 CDT, Weight Zinc Yes 140 mg, Memoria 7-06 PO, Daily, l 15:54: 0 Refill(s) Elderberry Yes 0 Memoria preparation 7-06 Refill(s) l 15:54: Buspar Yes PO, BID, 0 Memor ia 7-06 Refill(s) l 15:53: Dialyvite Yes 0 Memoria 5000 7-06 Refill(s) l 15:53: divalproex Yes depression 500mg QD Take 500 [...] Center hours as needed for Pain. pantoprazol Yes 40mg QD Take [address] [facility] 7-20 by mouth [facility] - (PROTONIX) 15:20: daily. Medic al 40 MG 59 Center tablet amLODIPine Yes 10mg QD Take [address] (NORVASC) 5 7-20 by mouth [facility] - MG tablet 15:20: daily. Medica l 59 Center hydrALAZINE Yes 100mg [id number] Take [address] (APRESOLINE 7-20 [id number] mg by L ukes - ) 100 MG 15:20: 3D mouth 3 Medica l tablet 59 (three) Center times daily. magnesium 2017 Yes 400mg QD Take [address] oxide 7-20 mg by [facility] - (MAG-OX) 15:20: mouth Medical 400 mg 59 daily. Center tablet metoclopram 2017 Yes 10mg Q.[id number] Take 10 mg [facility] St gadiel HCl 7-20 [id number] by mouth 3 [facility] - (REGLAN) 10 [...] daily. Med ical tablet 59 Center medroxyPROG 2017-[address] [facility] ESTERone 7-20 intramuscu [facility] - (DEPO-PROVE 15:20: larly Medic al RA) 150 59 every 3 Center mg/mL (three) injection months. divalproex 2017-0 Yes depression 500mg QD Take [address] [facility] (DEPAKOTE) 7-20 associated mg by Pati kes - 500 MG EC 15:20: with mouth Medical tablet 59 bipolar daily. Center disorder ondansetron 2017-0 Yes 4mg Take [address] (ZOFRAN) 4 7-20 by mouth [facility] - MG tablet 15:20: every 6 Medic al 59 (six) Center hours as needed for Nausea. traMADol 2017-0 Yes 50mg Take [address] [facility] (ULTRAM) 50 7-20 by mouth [facility] - mg tablet 15:20: every 6 Medic al 59 (six) Center hours as needed for Pain. pantoprazol 2017-0 Yes 40mg QD Take [address] [facility] e 7-20 by mouth [facility] - (PROTONIX) 15:20: daily. Medic al 40 MG 59 Center tablet amLODIPine 2017-0 Yes 10mg QD Take [address] (NORVASC) 5 7-20 by mouth Luke [facility] - MG tablet 15:20: daily. Medica l 59 Center hydrALAZINE 2017-0 Yes 100mg [id number] Take [address] [facility] [address] (APRESOLINE 7-20 [id number] mg by L [facility] - ) 100 MG 15:20: 3D mouth 3 Medica l tablet 59 (three) Center times daily. magnesium 2017-0 Yes 400mg QD Take [address] oxide 7-20 mg by [facility] - (MAG-OX) 15:20: mouth Medical 400 mg 59 daily. Center tablet metoclopram 2017-0 Yes 10mg [id number] Take [address] [facility] [address] gadiel HCl 7-20 [id number] by mouth 3 [facility] (REGLAN) 10 [...] nter injection morning Use as directed . insulin Yes 5U QD Inject [address] [facility] [address] glargine 7-20 Units [facility] - (LANTUS) 00:00: subcutaneo Med ical 100 unit/mL 00 usly every Ce nter injection morning Use as directed . Furosemide Yes 40 mg = 1 Me moria 40 MG Oral 2-09 tab, PO, l Tablet 15:07: Daily, # [place] 00 30 tab, 0 Refill(s), Pharmacy: [id number] Bumex No 0.5 mg, Memoria 07-30 Route: PO, l 15:00: Drug form: [place] 00 TAB, Daily, Dosing Weight 92.273, kg, Start date: 07/30/16 9:00:00 CAREER AND GUIDANCE COUNSELOR, Duration: 30 day, Stop date: 08/28/16 9:00:00 CAREER AND GUIDANCE COUNSELOR Lasix No Notes: Memoria 2-08 (Same as: l 20:05: Lasix) Vin 00 May cause GI upset. Give with food or milk. Hydralazine No Notes: Mendoza janice 2-08 (Same as: l 06:05: Apresoline Vin 00 ) Push over 5 minutes sodium 2017-0 No 1,000 mL, Memori a chloride 2-05 Rate: 125 l 0.9% 1000 18:26: ml/hr, Jake n ml INJ 00 Infuse 1,000 mL over: 8 hr, Route: IV, Dosing Weight 92.273 kg, Total Volume: 1,000, Start date: 07/26/16 12:26:00 CAREER AND GUIDANCE COUNSELOR, Duration: 30 day, Stop date: 08/25/16 12:25:00 CAREER AND GUIDANCE COUNSELOR Sodium 2017-0 No 500 mL, Memoria Chloride 2-05 500 ml/hr, l 0.154 13:30: Infuse Vin MEQ/ML 00 Over: 1 Injectable hr, Route: Solution IV, 500, Drug form: INJ, ONCE, Priority: STAT, Dosing Weight 92.273 kg, Start date: 07/26/16 7:30:00 CAREER AND GUIDANCE COUNSELOR, Duration: 1 doses or times, Stop date: 07/26/16 7:30:00 CAREER AND GUIDANCE COUNSELOR Insulin No 60 Memoria regular 2-04 units) l 08:39: WASTE: F/P Vin 00 - Black; E - Municipal Trash Bin Stable for 28 days at room temperatur e Expires in days from ____Date Insulin, No Notes: Memoria Aspart, 2-04 Roll in l Human 07:31: palms of [place] 00 hands gently; Do not shake vigorously . (Same as: NovoLOG) "single patient use only" WASTE: F/P - Black; E - Municipal Trash Bin Stable for 28 days at room temperatur e. Expires in days from ____Date Insulin, 2016-0 No Notes: Memoria Aspart, 2-04 Roll in l Human 05:42: palms of Vin 00 hands gently; Do not shake vigorously . (Same as: NovoLOG) "single patient use only" WASTE: F/P - Black; E - Municipal Trash Bin Stable for 28 days at room temperatur e. Expires in days from ____Date Insulin, 2017-0 No Notes: Memoria Aspart, 2-04 Roll in l Human 03:28: palms of hands gently; Do not shake [...] Weight 92.273, kg, Start date: 07/24/16 9:00:00 CAREER AND GUIDANCE COUNSELOR, Duration: 30 day, Stop date: 08/22/16 9:00:00 CAREER AND GUIDANCE COUNSELOR 24 HR No Notes: Memoria Divalproex 2-03 (Same as: l Sodium 500 15:00: Depakote Her braden MG Extended 00 ER) Release Tablet [Depakote] gabapentin No Notes: Memor ia 300 MG Oral 2-03 (Same as: l Capsule 15:00: Neurontin) Aspirin 81 No Notes: Memor ia MG Chewable 2-03 Take with l Tablet 15:00: food. Lasix No Notes: Memoria 2-03 (Same as: l 15:00: Lasix) Vin MEDICATION WASTE Product Size: 40 mg Product Wasted: ___ mg Zoloft No Notes: Memoria 2-03 (Same as: l 15:00: Zoloft) [place] Protonix No Notes: Memoria 2-03 Tablet l 15:00: should not [place] be chewed or crushed. (Same as: Protonix) metoprolol No 100 mg, 2 Me moria extended 2-03 tab, l release 15:00: Route: PO, Herm naeem Drug form: ERTAB, Daily, Start date: 07/24/16 9:00:00 CAREER AND GUIDANCE COUNSELOR, Duration: 30 day, Stop date: 08/22/16 9:00:00 CAREER AND GUIDANCE COUNSELOR Insulin No Notes: Memoria Glargine 2-03 Same as: l 100 UNT/ML 15:00: Lantus) Do H ermann Injectable 00 not hold Solution insulin [Lantus] without contacting prescriber WASTE: F/P - Black; E - Municipal Trash Bin Hydralazine No Notes: Mendoza janice Hydrochlori 2-03 (Same as: l de 100 MG 15:00: Apresoline He rmann Oral Tablet ) May interfere w/enteral feedings Take With Food Ondansetron No Notes: Mendoza janice 2-03 (Same as: l 14:50: Zofran) MEDICATION WASTE Product Size: 4 mg [...] Memoria 2-03 Same as l 11:28: Dilaudid Insulin, No Notes: Memoria Aspart, 2-03 Roll in l Human 08:40: palms of hands gently; Do not shake vigorously . (Same as: NovoLOG) "single patient use only" WASTE: F/P - Black; E - Municipal Trash Bin Stable for 28 days at room temperatur e. Expires in days from ____Date Glucagon No 1 mg, Memoria 2- Route: IM, l 08:40: Drug form: PDR/INJ, PRN, Dosing Weight 92.273, kg, PRN Blood Glucose Results, Start date: 07/24/16 2:40:00 CAREER AND GUIDANCE COUNSELOR, Duration: 30 day, Stop date: 08/23/16 2:39:00 CAREER AND GUIDANCE COUNSELOR Dextrose No 25 gm, 50 Mendoza janice 50% Syringe 2-03 mL, Route: l 08:40: IVP, Drug Form: INJ, Dosing Weight 92.273, kg, PRN, PRN Blood Glucose Results, Start date: 07/24/16 2:40:00 CAREER AND GUIDANCE COUNSELOR, Duration: 30 day, Stop date: 08/23/16 2:39:00 CAREER AND GUIDANCE COUNSELOR Docusate No Notes: Memoria 2-03 (Same as: l 07:20: Colace) (Do Not Crush) Ondansetron No Notes: Mendoza janice -03 (Same as: l 07:20: Zofran) MEDICATION WASTE Product Size: 4 mg Product Wasted: ___ mg Lasix No Notes: Memoria 2-03 (Same as: l 06:01: Lasix) 00 MEDICATION WASTE Product Size: 40 mg Product Wasted: ___ mg Aspirin No Notes: Memoria 2-03 Take with l 05:48: food. Prednisone No Notes: Memor ia 2-03 Take with l 05:02: food. Albuterol No Notes: Memori a 0.833 MG/ML 07-24 (Same as: 04:09: Duoneb) Vin Ipratropium 00 [place] 0.167 MG/ML Inhalant Solution [DuoNeb] Furosemide 2015-06 [...] 2015-06 Yes 40 unit, Memori a Glargine 2- SUB-Q, l 100 UNT/ML 16:34: Daily, # [...] tab, PO, l tablet 16:34: Daily, # [place] 00 30 tab, 0 Refill(s) Lasix 2015-06 No Notes: Memoria 2-26 (Same as: l 15:00: Lasix) Vin 00 May cause GI upset. Give with food or milk. Magnesium 2015-06 No Notes: Memori a Oxide 2-24 (Same as: l 13:36: Mag-Ox [place] 00 400) Magnesium oxide 531ng=637l g elemental magnesium Dose=____m g magnesium oxide (___mg elemental magnesium) Magnesium 2015-06 No Notes: Memori a Oxide 2-24 (Same as: l 09:47: Mag-Ox Vin 00 400) Magnesium oxide 312gt=549p g elemental magnesium Dose=____m g magnesium oxide [...] Memoria 2-24 (Same as: l 00:00: Norvasc) [place] 00 Insulin 2015-06 No Notes: Memoria Glargine [...] tab, PO, l tablet 15:35: Daily, 0 [place] 00 Refill(s) pravastatin 2015-06 No 40 mg = 1 M emoria 40 mg oral 2-23 tab, PO, l tablet 15:35: Daily, 0 [place] 00 Refill(s) Sertraline 2015-06 Yes 200 mg = 2 M emoria 100 MG Oral 2-23 tab, PO, l Tablet 15:27: Daily, 0 [place] [Zoloft] 00 Refill(s) pantoprazol 2015-06 Yes 40 mg = 1 M emoria e 40 MG 2-23 tab, PO, l Enteric 15:27: Daily, 0 Jake n Coated 00 Refill(s) Tablet [Protonix] gabapentin 2015-06 Yes 1 CAP PO Mem oria 300 MG Oral 2-23 BID AND 1 l Capsule 15:27: CAP AT [place] 00 BEDTIME, 0 Refill(s) Insulin, 2015-06 No [...] 2015-06 No Notes: Memor ia Sodium 500 -22 (Same as: l MG Enteric 15:00: Depakote Her braden Coated ER) Once Tablet daily [Depakote] dosing; indicated for migraines. Divalproe x sodium extended-r elease tab. Do not chew or crush. "Do Not Crush" Aspirin 2015-06 No 81 mg, Memoria 2-22 Route: PO, l 15:00: Drug form: ECTAB, Daily, Dosing Weight 86.364, kg, Start date: 06/11/16 9:00:00 CAREER AND GUIDANCE COUNSELOR, Duration: 30 day, Stop date: 07/10/16 9:00:00 CAREER AND GUIDANCE COUNSELOR Insulin 2015-06 No Notes: Memoria Glargine 2-22 [...] 2-22 (Same as: l / 03:00: Duoneb) Vin Ipratropium 00 [place] 0.167 MG/ML Inhalant Solution [DuoNeb] gabapentin 2015-06 No 300 mg, Mendoza janice 300 MG Oral 2-22 Route: PO, l Capsule 03:00: Drug form: Herm naeem 00 CAP, Q12H, Dosing Weight 86.364, kg, (CrCl 30 - 59 ml/min), Start date: 06/10/16 21:00:00 CAREER AND GUIDANCE COUNSELOR, Duration: 30 day, Stop date: 07/10/16 9:00:00 CAREER AND GUIDANCE COUNSELOR divalproex 2015-06 No Notes: Memor ia sodium 2-22 (Same as: l 03:00: Depakote [place] 00 ER) Once daily dosing; indicated for migraines. Divalproe x sodium extended-r elease tab. Do not chew or crush. "Do Not Crush" Losartan 2015-06 No Notes: Memoria 2-22 (Same as: l 03:00: Cozaar) [place] 00 Insulin, 2015-06 No Notes: Memoria Aspart, 2-22 Roll in l Human 00:50: palms of [place] hands gently; Do not shake vigorously . [...] Blood Glucose Results, Start date: 06/10/16 18:50:00 CAREER AND GUIDANCE COUNSELOR, Duration: 30 day, Stop date: 07/10/16 18:49:00 CAREER AND GUIDANCE COUNSELOR Glucagon 2015-06 No 1 mg, Memoria 2-22 Route: IM, l 00:50: Drug form: [place] PDR/INJ, PRN, Dosing Weight 86.364, kg, PRN Blood Glucose Results, Start date: 06/10/16 18:50:00 CAREER AND GUIDANCE COUNSELOR, Duration: 30 day, Stop date: 07/10/16 18:49:00 CAREER AND GUIDANCE COUNSELOR Hydralazine 2015-06 No Notes: Mendoza janice 2-22 [...] janice -22 Route: IV, l 00:06: ONCE, [place] 00 Dosing Weight 86.364, kg, Start date: 06/10/16 18:06:00 CAREER AND GUIDANCE COUNSELOR, Stop date: 06/10/16 18:06:00 CAREER AND GUIDANCE COUNSELOR hydrOXYzine 2015-06 No Notes: Mendoza janice pamoate -21 (Same as: l 23:00: Vistaril) Furosemide 2015-06 No 60 mg, Memor ia 2-21 Route: l 22:32: IVP, Drug form: INJ, ONCE, Dosing Weight 86.364, kg, Start date: 06/10/16 16:32:00 CAREER AND GUIDANCE COUNSELOR, Stop date: 06/10/16 16:32:00 CAREER AND GUIDANCE COUNSELOR Lasix 2015-06 No Notes: Memoria 2-21 (Same as: l 17:22: Lasix) MEDICATION WASTE Product Size: 40 mg Product Wasted: _0__ mg Albuterol 2015-06 No Notes: Memori a 0.833 MG/ML -21 (Same as: l 17:22: Duoneb) Ipratropium 00 [place] 0.167 MG/ML Inhalant Solution [DuoNeb] Promethazin Yes 25 mg = 1 M emoria e 1-06 supp, WI, l Hydrochlori 14:45: Q6H, Jake n de 25 MG 00 Nausea & Rectal Vomiting, Suppository # 9 supp, [Phenergan] 0 Refill(s) Ondansetron Yes Special Mem oria 4 MG 06 Instructio l Disintegrat 14:25: ns: Jake n ing Tablet 00 Dissolve [Zofran] tab under tongue Metoclopram Yes 10 mg = 1 M emoria gadiel 10 MG -06 tab, PO, l Oral Tablet 14:24: QID, [...] Refill(s) l 11:16: quetiapine Yes 0 Memoria 06-26 Refill(s) l 11:16: Sodium No 2,000 mL, Memori a Chloride 06-26 1,000 l 0.154 10:56: ml/hr, MEQ/ML 00 [...] 04/14/13 23:10:00, Stop date: 04/14/13 23:10:00 ondansetron 2012- No Matthew Gary 4 mg, Memoria 0-26 Marry Route: l 04:10: IVP, ONCE, Vin 00 Dosing Weight 63.636, kg, Priority: STAT, Start date: 04/14/13 23:10:00, Stop date: 04/14/13 23:10:00 Sodium 2012- No Matthew Gary 1,000 mL, M emoria Chloride 0-26 Marry Rate: 125 l 0.9% IV 04:10: ml/hr, [place] 1,000 mL 00 Infuse over: 8 hr, [...] Marx Rate: 500 l 0.9% 23:45: ml/hr, [place] (Bolus) IV 00 Infuse 500 mL over: [...] No Hung Murillo 40 mg, Memoria e 03-14 Marx Route: l 22:19: IVP, ONCE, Dosing Weight 58.636, kg, For IV push reconstitu te with 10 ml 0.9% sodium chloride and push over at least 3 minutes, Priority: STAT, Start date: 03/14/12 17:19:00, Stop date: 03/14/12 17:19:00 Sodium No Hung Murillo 500 mL, Me moria Chloride 03-14 Marx Rate: l 0.9% 22:19: 1,000 [place] (Bolus) IV 00 ml/hr, 500 mL Infuse over: 0.5 hr, Route: IV, kg, Total Volume: 500, Bolus dose, Priority: STAT, Start date: 03/14/12 17:19:00, Duration: 1 doses or times, Stop date: 03/14/12 17:48:00 Reglan 10 Yes Blake 10 mg, 1 M emoria mg oral 6-11 Deangelo tab, PO, l tablet 11:11: QID-Before H ermann 13 Meals, 120 tab, 1, 1, Substituti on Allowed insulin No Blake 10 unit, Mem oria isophane-METHODS ANALYST DATA PROCESSING 6-11 Deangelo 0.1 mL, l H 02:00: [...] l tablet 02:00: Route: PO, H ermann Drug form: TAB, Bedtime, Start date: 11/29/11 [...] 6-10 Omidvar Route: l 21:33: IVP, ONCE, Vin 00 Start date: 11/29/11 16:33:00, Stop date: 11/29/11 16:33:00 morphine 2011-0 No Bismark 2 mg, 0.5 Me moria Sulfate 6-10 Omidvar mL, Route: l 21:32: IVP, Drug form: INJ, ONCE, Start date: 11/29/11 16:32:00, Stop date: 11/29/11 16:32:00 Tylenol 2011-0 No [place] 650 mg, 2 Mem oria 6-10 Omidvar tab, l 19:16: Route: PO, Vin 00 Drug form: TAB, Q4H, PRN Pain, Start date: 11/29/11 14:16:00, Duration: 30 day, Stop date: 12/29/11 14:15:00 insulin 2011-0 No Blkae 14 unit, Mem oria isophane-METHODS ANALYST DATA PROCESSING 6-10 Deangelo 0.14 mL, l H 14:00: Route: Vin 00 SUB-Q, Drug form: INJ, Daily, Start date: 11/29/11 9:00:00, Duration: 30 day, Stop date: 12/28/11 9:00:00 Insulin 2011-0 No Blake 10 unit, Mem oria regular 6-10 Deangelo 0.1 mL, l 14:00: Brisa Route: [place] 00 SUB-Q, Drug form: SOLN, Daily, Start [...] Deangelo 0.1 mL, l 06:30: Brisa Route: [place] 00 SUB-Q, Drug form: SOLN, TID-Before Meals, [...] l IV 1,000 mL 06:29: Brisa ml/hr, [place] 00 Infuse over: 5 hr, Route: IV, [...] mL, Route: l 04:01: Brown IVP, Drug [place] 00 form: INJ, ONCE, Priority: STAT, Start date: 11/28/11 23:01:00, Stop date: 11/28/11 23:01:00 Zofran 2011-0 No Nikki 4 mg, 2 Mendoza janice 6-10 Sarah mL, Route: l 02:31: Brown IVP, Drug [place] 00 form: INJ, ONCE, Priority: STAT, Start date: 11/28/11 21:31:00, Stop date: 11/28/11 21:31:00 NS (Bolus) No Arif Domenico 1,000 mL, Memoria IV 1,000 mL 11-27 Rate: l 22:48: 1,000 [place] 00 ml/hr, Infuse over: 1 hr, Route: [...] 30 day, Stop date: 12/28/11 15:35:00 Ativan 2011-0 No Arif Domenico 2 mg, 1 Mem oria 6-09 mL, Route: l 20:35: IVP, Drug Vin 00 form: INJ, ONCE, Priority: STAT, Start date: 11/28/11 15:35:00, Stop date: 11/28/11 15:35:00 Novolin R 2011-0 Yes Hughes-Jason 8 unit, M emoria 100 3-30 [place] SUB-Q, l units/mL 17:47: Eunice Q12H, 2 He rmann injectable 42 Pu vial, solution Substituti on Allowed, SOLN Novolin N 0 Yes Hughes-Jason 10 unit, Memoria 100 3-30 [place] SUB-Q, l units/mL 17:46: Eunice Bedtime, H ermann subcutaneou 27 Pu 10 ml, s injection Substituti on Allowed, SUSP Novolin N Yes Hughes-Jason 14 unit, Memoria 100 3-30 [place] SUB-Q, l units/mL 17:44: Eunice QAM, 1 Her braden subcutaneou 37 Pu vial, s injection Substituti on Allowed, SUSP magnesium No Hughes-Jason 400 mg, 1 Memoria oxide 3-30 [place] tab, l 14:55: Eunice Route: PO, Her braden 00 Pu Drug form: TAB, ONCE, Priority: STAT, Start date: 09/18/11 9:55:00, Stop date: 09/18/11 9:55:00 Insulin 2011-0 No Hughes-Jason 8 unit, Mem oria regular 3-30 [place] 0.08 mL, l 14:22: Eunice Route: [place] 00 Pu SUB-Q, Drug form: SOLN, ONCE, Priority: STAT, Start date: 09/18/11 9:22:00, Stop date: 09/18/11 9:22:00 Lactated 2011- No Hughes-Jason 1,000 mL, Memoria Ringers 3-30 [place] Rate: l (Bolus) IV 14:16: Eunice 1,000 He rmann 1,000 mL 00 Pu ml/hr, Infuse over: 1 hr, Route: IV, Total Volume: 1,000, Bolus Dose, Priority: STAT, Start date: 09/18/11 9:16:00, Duration: 1 doses or times, Stop date: 09/18/11 10:15:00 Sodium 2011-0 No Hughes-Jason 1,000 mL, Me moria Chloride 3-30 [place] Rate: l 0.9% 14:06: Dawson 1,000 [place] (Bolus) IV 00 Pu ml/hr, 1000 mL Infuse over: 1 hr, Route: IV, kg, Total Volume: 1,000, Bolus Dose, Priority: STAT, Start date: 09/18/11 9:06:00, Duration: 1 doses or times, Stop date: 09/18/11 10:05:00 sulfamethox 2011- Yes Substituti Memoria azole 3-30 on Allowed l 14:04: Vin 58 Sodium No Hughes-Jason 1,000 mL, Me moria Chloride 3-30 [place] Rate: l 0.9% 13:56: Dawson 1,000 [place] (Bolus) IV 00 Pu ml/hr, 1000 mL [...] 3-21 Amelia cap, PO, l capsule 18:46: Clements Q8H, 30 Her braden 55 cap, Substituti on Allowed, CAP Gable Yes Luna 1 tab, PO, Memoria 10/325 oral 3-21 Amelia Q4H, PRN, l tablet 18:46: Zeeshan 30 tab, Herm naeem 36 Pain, Substituti on Allowed, Maintenanc e, TAB Gable No Hollie Donavan 1 tab, Mendoza janice [...] 3-19 Omidvar tab, l 15:30: Route: PO, [place] 00 Drug form: TAB, Daily, Start date: 09/07/11 10:30:00, Duration: 30 day, Stop date: 10/07/11 9:00:00 flumazenil 2011- No Gayle 0.2 mg, 2 Memoria 3-19 Josefina mL, Route: l 14:19: [place] IVP, Drug Jake n 00 form: INJ, PRN, PRN Benzodiaze pine Reversal, Initial dose, Start date: 09/07/11 9:19:00, Duration: 1 day, Stop date: 09/08/11 9:18:00 naloxone 2011- No Gayle 0.04 mg, Me moria 3-19 Josefina 0.1 mL, l 14:19: [place] Route: Vin 00 IVP, Drug form: INJ, Q2MIN, PRN Narcotic Reversal, Start date: 09/07/11 9:19:00, Duration: 8 doses or times, Stop date: Limited # of times ondansetron No Gayle 4 mg, 2 Memoria 3-19 Josefina mL, Route: l 14:19: Gavin IVP, Drug Jake n 00 form: INJ, ONCE, PRN Nausea & Vomiting, Start date: 09/07/11 9:19:00 hydromorpho 2011- No Gayle 0.5 mg, Memoria ne 3-19 Josefina 0.25 mL, l 14:19: Gavin Route: [place] IVP, Drug form: INJ, Q5Min, PRN Pain Score 4-6, Start date: 09/07/11 9:19:00, Duration: 5 doses or times, Stop date: Limited # of times acetaminoph No Gayle 15 mL, M emoria en-hydrocod 09-06 Josefina Route: PO, l one 325 14:19: [place] Drug Form: Tyrel canales mg-10 mg/15 00 SOLN, Q4H, mL oral [...] Memoria 09-06 Arias Route: l 13:31: IVPB, [place] 00 ONCE, Start date: 09/07/11 8:31:00, Stop [...] 3-17 Omidvar tab, l 14:11: Route: PO, [place] 00 Drug form: ERTAB, ONCE, Start date: [...] Duration: 30 day, Stop date: 10/04/11 18:10:00 Gable 2011-0 No Mahammad 1 tab, Memori a [...] 7 day, Stop date: 09/11/11 10:00:00 ondansetron 2011- No Rosalino 4 mg, 2 Memoria 3-16 Kavon mL, Route: l 14:50: IVP, Drug Vin 00 form: INJ, ONCE, PRN Nausea & Vomiting, Start date: 09/04/11 9:50:00, Duration: 1 doses or times, Stop date: Limited # of times ropivacaine 2011- No Rosalino Dosing: Memoria 0.2% in NS 3-16 Kavon 10cc/hr, l - site 1 14:50: Route: [place] 400 mL 00 NERVE BLOCK, Start date: 09/04/11 9:50:00 400 mL, Duration: 30 day, Stop date: 10/04/11 9:49:00 naloxone 2011- No Rosalino 0.04 mg, Me moria 3-16 Kavon 0.1 mL, l 14:50: Route: Vin 00 IVP, Drug form: INJ, Q2MIN, PRN Narcotic Reversal, Start date: 09/04/11 9:50:00, Duration: 30 day, Stop date: 10/04/11 9:49:00 Gable 2011-0 No Bism[place] 1 tab, Memoria 10/325 [...] Beck 0.1 mL, l 13:37: Hayden Route: [place] IVP, Drug form: INJ, Q2MIN, PRN Narcotic Reversal, Start date: 09/04/11 8:37:00, Duration: 8 doses or times, Stop date: Limited # of times meperidine No Hollie 12.5 mg, Me moria 3-16 Beck 0.5 mL, l 13:37: Hayden Route: [place] IVP, Drug form: INJ, Q30Min, PRN Other [...] 3-15 Omidvar tab, l 13:39: Route: PO, [place] Drug form: ERTAB, ONCE, Start date: 09/03/11 8:39:00, Stop date: 09/03/11 8:39:00 Gable 5/325 2011-0 No Rosalino 1 tab, M emoria oral tablet 3-15 Kavon Route: PO, l 05:00: Drug Form: [place] 00 TAB, Q4H, Start date: 09/03/11 0:00:00, [...] 3-14 Anabelle cap, l 17:00: Route: PO, [place] Drug form: ERCAP, Daily, Give qAM after today's dose., Start date: 09/02/11 12:00:00, Duration: 30 day, Stop date: 10/02/11 9:00:00 Gable 5/325 2011-0 No Rosalino 1 tab, M [...] Route: l 14:00: IVPB, Drug form: INJ, [id number], Start date: 09/02/11 9:00:00, Duration: 30 day, Stop date: 10/01/11 21:00:00 clindamycin 0 No Eber L 600 mg, 4 Memoria (SCIP) 3-14 Anabelle mL, Route: l 10:00: IVPB, [place] 00 [id number], Start date: 09/02/11 5:00:00, Duration: 3 doses or times, Stop date: 09/02/11 21:00:00 clindamycin 0 No Yury 600 mg, 4 Memoria (SCIP) 3-14 Silverio mL, Route: l 04:00: Connally IVPB, Vin 00 [id number], Start date: 09/01/11 23:00:00, Duration: 3 doses or times, Stop date: 09/02/11 15:00:00 insulin 2011-0 No [place] 15 unit, Mendoza janice isophane-METHODS ANALYST DATA PROCESSING 3-14 Omidvar 0.15 mL, l H 02:00: Route: [place] 00 SUB-Q, Drug form: INJ, Q12H, Start date: 09/01/11 21:00:00, Stop date: 10/01/11 9:00:00 labetalol 0 No Mariaelena-Corea 5 mg, Me moria 3-14 Barbra Route: l 01:07: Feliciano IVP, [place] 00 Q5Min, PRN Elevated BP, Start date: 09/01/11 20:07:00, Duration: 5 doses or times, Stop date: Limited # of times hydrALAZINE No Mariaelena-Corea 5 mg, Memoria 3-14 Barbra Route: l 01:07: Feliciano IVP, [place] 00 Q5Min, PRN Elevated BP, Start date: 09/01/11 20:07:00, Duration: 4 doses or times, Stop date: Limited # of times hydromorpho No Mariaelena-Corea 0.5 mg, Memoria ne 3-14 Barbra Route: l 01:07: Feliciano IVP, [place] 00 Q5Min, PRN Pain Score 4-6, Start date: 09/01/11 20:07:00, Duration: 5 doses or times, Stop date: Limited # of times naloxone No Mariaelena-Corea 0.04 mg, Memoria 3-14 Barbra Route: l 01:07: Feliciano IVP, [place] 00 Q2MIN, PRN Narcotic Reversal, Start date: [...] 3-14 Gauvain Route: l 01:00: IVPB, Drug Vin 00 form: INJ, [id number], Start date: 09/01/11 20:00:00, Duration: 30 day, [...] Route: l 00:00: IVPB, Drug form: INJ, [id number], Start date: 09/01/11 19:00:00, Duration: 30 day, [...] mL, Me moria Ringers IV 3-13 Manuel Goldsby Rate: 100 l 1,000 mL 19:03: ml/hr, [place] 00 Infuse over: 10 hr, Route: IV, [...] Madden Rate: l 0.9% 14:53: Gurinder 1,000 [place] (Bolus) IV 00 ml/hr, 1,000 mL Infuse [...] 2011-0 No Ju 600 mg, 4 Memoria - Nikki mL, Route: l 13:20: Sandeep IVPB, Drug Herm naeem 00 form: INJ, ONCE, Priority: STAT, Start date: 09/01/11 8:20:00, Stop date: 09/01/11 8:20:00 Sodium 2011-0 No Bee L 1,000 mL, M emoria Chloride 08-31 [place] Rate: l 0.9% 10:41: 1,000 [place] (Bolus) IV 00 ml/hr, 1000 mL Infuse over: 1 hr, Route: IV, Dosing Weight 68.182 kg, Total Volume: 1,000, Bolus Dose, Priority: STAT, Start date: 09/01/11 5:41:00, Duration: 1 doses or times, Stop date: 09/01/11 6:40:00 ondansetron 2011- No Bee L 4 mg, Memoria 08-31 [place] Route: l 09:06: IVP, Drug Vin 00 [...] 08-31 [place] Rate: l 0.9% 08:42: 1,000 [place] (Bolus) IV 00 ml/hr, 1000 mL Infuse over: 1 hr, Route: IV, Dosing Weight 68.182 kg, Total Volume: 1,000, Bolus Dose, Priority: STAT, Start date: 09/01/11 3:42:00, Duration: 1 doses or times, Stop date: 09/01/11 4:41:00 Insulin 2011-0 No Bee L 8 unit, Me moria regular 3-13 Convoy 0.08 mL, l 08:30: Route: [place] 00 IVP, Drug form: SOLN, ONCE, Priority: STAT, Start date: 09/01/11 3:30:00, Stop date: 09/01/11 3:30:00 Sodium 2011- No Bee L 1,000 mL, M emoria Chloride 3-13 [place] Rate: l 0.9% 07:29: 1,000 [place] (Bolus) IV 00 ml/hr, 1,000 mL Infuse [...] Akmal SUB-Q, l units/mL 14:42: BID, 3 [place] subcutaneou 04 vial, 3, s injection 3, Substituti on Allowed, SUSP insulin Yes Velásquez Noam 5 Units, Memoria regular 3-04 Akmal SUB-Q, l human 14:40: TID, 30 [place] recombinant 10 vial, 3, 100 3, units/mL Substituti injectable on solution Allowed, before breakfast lunch and dinner, SOLNbefore breakfast lunch and dinner potassium 2012-0 No Velásquez Noam 20 mEq, Memoria chloride 3-04 Akmal 100 mL, l 14:00: Route: [place] 00 IVPB, Drug form: INJ, Q2H, Start [...] Akmal mL, Route: l 13:26: IVPB, Drug [place] form: INJ, ONCE, Total dose = 2 gm, Start date: 08/22/11 7:26:00, Duration: 1 doses or times, Stop date: 08/22/11 7:26:00 Geodon 2011-0 No Yury 120 mg, 3 Mem oria 3-03 Gato cap, l 03:00: River[place] Route: PO, H ermann 00 Drug form: CAP, Bedtime, Start date: 08/21/11 21:00:00, Duration: 30 day, Stop date: 09/19/11 21:00:00 lisinopril 2011-0 No Yury 10 mg, 1 Memoria 3-02 Gato tab, l 20:06: Rivero Route: PO, H ermann 00 Drug form: TAB, ONCE, Start date: 08/21/11 14:06:00, Stop date: 08/21/11 14:06:00 potassium 2011-0 No Yury 20 mEq, Me moria chloride 3-02 Gato 100 mL, l 15:12: Rivero Route: Nidia nn 00 IVPB, Drug form: INJ, ONCE, Start date: 08/21/11 9:12:00, Stop date: 08/21/11 9:12:00 lisinopril 2012-0 No Velásquez Noam 40 mg, 2 Memoria [...] No Yury 1 mg, 1 Mem oria 3- Gato tab, l 03:00: Rivero Route: PO, H erm Drug form: TAB, Q12H, Start date: 08/20/11 21:00:00, Duration: 30 day, Stop date: 09/19/11 9:00:00 Phenergan 2011-0 No Yury 6.25 mg, M emoria 3- Gato 0.25 mL, l 21:41: Rivero Route: Nidia nn 00 IVPB, Drug form: INJ, Q6H, PRN Nausea & Vomiting, Start date: 08/20/11 15:41:00, Stop date: 09/19/11 15:40:00 Compazine 2011-0 No Bismark 5 mg, 1 Mem oria 3-01 Rodriguez tab, l 20:30: Ahmed Route: PO, Jake n Drug form: TAB, Q6H, PRN Nausea & Vomiting, Start date: 08/20/11 14:30:00, Duration: 30 day, Stop date: 09/19/11 14:29:00 Zofran 2011-0 No Bismark 4 mg, 2 Memori a 3-01 Rodriguez mL, Route: l 17:15: Ahmed IVP, Drug Vin form: INJ, Q8H, PRN Nausea, Start date: 08/20/11 11:15:00, Duration: 30 day, Stop date: 09/19/11 11:14:00 insulin 2011-0 No Yury 10 unit, Mem oria isophane-METHODS ANALYST DATA PROCESSING 3-01 Gato Route: l H 16:00: Rivero SUB-Q, Nidia nn 00 ONCE, Start date: 08/20/11 10:00:00, Stop date: 08/20/11 10:00:00 trazodone Yes 200 mg, 2 Mem oria 100 mg oral 08-19 tab, PO, l tablet 15:37: Bedtime, Vin [...] insulin No Yury 10 unit, Mem oria isophane-METHODS ANALYST DATA PROCESSING 08-19 Gato Route: l H 15:00: Rivero SUB-Q, Nidia nn 00 Q12H, Start date: 08/20/11 9:00:00, Duration: 30 day, Stop date: 09/18/11 21:00:00 Geodon No Yury 60 mg, 3 Mendoza janice 08-19 Gato cap, l 15:00: Rivero Route: PO, H erm 00 Drug form: CAP, BID, Start date: 08/20/11 9:00:00, Duration: 30 day, Stop date: 09/18/11 17:00:00 Effexor XR No Yury 75 mg, 1 Memoria 08-19 Gato cap, l 15:00: Rivero Route: PO, H erm 00 Drug form: ERCAP, Daily, Start date: 08/20/11 9:00:00, Duration: 30 day, Stop date: 09/18/11 9:00:00 potassium No Yury 15 mmol, 5 Memoria phosphate 08-19 Gato mL, Route: l 14:30: Rivero IV, [...] No Yury 15 mmol, M emoria phosphate 3 Gato Route: l 12:47: Rivero IVPB, PRN, [...] Allowed insulin No 10 unit, Memori a isophane-METHODS ANALYST DATA PROCESSING 3 SUB-Q, l H 09:26: BID, Vin 18 Substituti on Allowed NS 1,000 mL No Velásquez Noam 1,000 mL, Memoria 08-19 Akmal Rate: 150 l 09:06: ml/hr, [place] Infuse over: 6.7 hr, Route: IV, Total Volume: 1,000, Start date: 08/20/11 3:06:00, Duration: 30 day, Stop date: 09/19/11 3:05:00 insulin No Yury 3 unit, Mendoza janice aspart 3 Gato 0.03 mL, l 09:06: Rivero Route: [...] 30 day, Stop date: 09/18/11 9:00:00 insulin No Yury 18 unit, Mem oria isophane-METHODS ANALYST DATA PROCESSING 3- Gato 0.18 mL, l H 08:58: [...] No Yury 3 unit, Mendoza janice regular 3 Gato Route: l 08:48: Rivero SUB-Q, Nidia nn 00 Bedtime, PRN Blood Glucose Results, Start date: 08/20/11 2:48:00, Duration: 30 day, Stop date: 09/19/11 2:47:00 Dextrose No [facility] 25 gm, [facility] Syringe 08-19 Gato ml, Route: l 08:46: Rivero IVP, Drug He rmann 00 Form: INJ, PRN, PRN Blood Glucose Results, Start date: 08/20/11 2:46:00, Duration: 30 day, Stop date: 09/19/11 3:45:00 ondansetron No [facility] [place] Route: l 07:42: Dawson IVP, Drug Herm naeem 00 Pu form: INJ, ONCE, Priority: STAT, Start date: 08/20/11 1:42:00, Stop date: 08/20/11 1:42:00 GI cocktail 2011- No Hughes-Jason 30 ml, Memoria 08-19 [place] Route: PO, l 05:12: Dawson Drug Form: Her braden 00 Pu SUSP, ONCE, STAT, Start date: 08/19/11 23:12:00, Stop date: 08/19/11 23:12:00 ondansetron No [facility], [facility] [place] Route: PO, l 05:10: Dawson Drug form: Her braden 00 Pu TABDIS, ONCE, Priority: STAT, Start date: 08/19/11 23:10:00, Stop date: 08/19/11 23:10:00 Lactated 2011-0 No Hughes-Jason 1,000 mL, Memoria Ringers 08-19 [place] Rate: l (Bolus) IV 05:10: Eunice 1,000 He rmann 1000 mL 00 Pu ml/hr, Infuse over: 1 hr, Route: IV, Total Volume: 1,000, Bolus Dose, Priority: STAT, Start date: 08/19/11 23:10:00, Duration: 1 doses or times, Stop date: 08/20/11 0:09:00 Insulin 2011-0 No Hughes-Jason 7 unit, Mem oria regular 08-19 [place] 0.07 mL, l 04:15: Dawson Route: [place] 00 Pu SUB-Q, Drug form: SOLN, ONCE, Priority: STAT, Start date: 08/19/11 22:15:00, Stop date: 08/19/11 22:15:00 Geodon 60 No Yury 60 mg, 1 M emoria mg oral - Gato cap, PO, l capsule 23:24: Rivero [...] 08/19/11 16:04:00, Stop date: 08/19/11 16:04:00 ondansetron 2012-0 No William 8 mg, Mem oria 2- Wong Route: l 21:57: Pooja IVP, Drug Jake n 00 form: INJ, ONCE, Priority: STAT, Start date: 08/19/11 15:57:00, Stop date: 08/19/11 15:57:00 morphine 2011-0 No William 4 mg, Memori a Sulfate Wong Route: l 21:57: Pooja IVP, ONCE, Nidia nn 00 Priority: STAT, Start date: 08/19/11 15:57:00, Stop date: 08/19/11 15:57:00 Reglan 2011-0 No William 10 mg, Memoria - Wong Route: IV, l 21:57: Pooja ONCE, Vin 00 Start date: 08/19/11 15:57:00, Stop date: 08/19/11 15:57:00 Lactated 2011- No William 1,000 mL, Me moria Ringers - Wong Rate: l (Bolus) IV 21:12: Pooja 1,000 Herm naeem 1000 mL 00 ml/hr, Infuse over: 1 hr, Route: IV, Total Volume: 1,000, Bolus Dose, Priority: STAT, Start date: 08/19/11 15:12:00, Duration: 1 doses or times, Stop date: 08/19/11 16:11:00 Immunizations Ordered Immunization Filled Immunization Date Status Commen ts Source Name Name hepatitis B vaccine 2018-04-07 Completed Memor ial 00:00:00 [place] influenza virus 2018-03-29 Completed [facility] vaccine, inactivated 00:00:00 Herm naeem hepatitis B vaccine 2017-11-26 Completed Memor ial 00:00:00 Vin influenza virus 2017-10-25 Completed [facility] vaccine, inactivated 00:00:00 Herm naeem pneumococcal 2017-10-25 Completed [facility] 23-valent vaccine 00:00:00 Vin Vital Signs Vital Name Observation Time Observation Value Comments Source Systolic (mm Hg) 2021-01-29 20:03:00 Mendoza rial Vin Diastolic (mm Hg) 2021-01-29 20:03:00 Mem orial [place] Systolic (mm Hg) 2021-01-29 19:40:00 Mendoza rial [place] Diastolic (mm Hg) 2021-01-29 19:40:00 Mem orial [place] Systolic (mm Hg) 2021-01-29 18:05:00 Mendoza rial Vin Diastolic (mm Hg) 2021-01-29 18:05:00 Mem orial Vin Respitory Rate 2021-01-29 16:55:00 Memori al [place] Temperature Oral (F) 2021-01-29 16:45:00 97.3 F [facility] Vin Respitory Rate 2021-01-29 16:45:00 Memori al [place] Respitory Rate 2021-01-29 16:30:00 Memori al Vin Temperature Oral (F) 2021-01-29 13:10:00 97.6 F [facility] Vin Systolic (mm Hg) 2021-01-27 05:00:00 Mendoza rial Vin Diastolic (mm Hg) 2021-01-27 05:00:00 Mem orial Vin Systolic (mm Hg) 2021-01-27 04:00:00 Mendoza rial Vin Diastolic (mm Hg) 2021-01-27 04:00:00 Mem orial [place] Systolic (mm Hg) 2021-01-27 03:00:00 Mendoza rial Vin Diastolic (mm Hg) 2021-01-27 03:00:00 Mem orial [place] Respitory Rate 2021-01-26 19:00:00 Memori al Vin Respitory Rate 2021-01-26 18:00:00 Memori al [place] Respitory Rate 2021-01-26 17:00:00 Memori al Vin Temperature Oral (F) 2021-01-22 13:00:00 97.6 F [facility] Vin Height 2021-01-21 18:25:00 149.86 cm [facility] [place] Weight 2021-01-21 18:25:00 [facility] [place] BMI Calculated 2021-01-21 18:25:00 Memori al Vin Height 2021-01-21 17:09:00 157.48 cm [facility] [place] Height 2021-01-21 13:09:00 157.48 cm [facility] [place] Weight 2021-01-21 13:09:00 [facility] [place] BMI Calculated 2021-01-21 13:09:00 Memori al Vin Heart Rate 2021-01-21 12:50:00 [facility] [place] Systolic (mm Hg) 2020-12-24 15:43:00 Mendoza rial [place] Diastolic (mm Hg) 2020-12-24 15:43:00 Mem orial [place] Heart Rate 2020-12-24 15:43:00 [facility] [place] Height 2020-12-24 15:43:00 154.94 cm [facility] [place] Weight 2020-12-24 15:43:00 [facility] [place] BMI Calculated 2020-12-24 15:43:00 Memori al [place] Systolic (mm Hg) 2016-07-30 14:00:00 Mendoza rial [place] Diastolic (mm Hg) 2016-07-30 14:00:00 Mem orial Vin Respitory Rate 2016-07-30 14:00:00 Memori al Vin Heart Rate 2016-07-30 14:00:00 [facility] [place] Temperature Oral (F) 2016-07-30 14:00:00 97.4 F [facility] [place] Systolic (mm Hg) 2016-07-30 10:45:00 Mendoza rial Vin Diastolic (mm Hg) 2016-07-30 10:45:00 Mem orial [place] Heart Rate 2016-07-30 10:45:00 [facility] [place] Temperature Oral (F) 2016-07-30 10:45:00 97.2 F [facility] [place] Respitory Rate 2016-07-30 10:45:00 Memori al [place] Heart Rate 2016-07-30 06:35:00 [facility] Vin Temperature Oral (F) 2016-07-30 06:35:00 97.0 F [facility] [place] Respitory Rate 2016-07-30 06:35:00 Memori al [place] Systolic (mm Hg) 2016-07-30 06:35:00 Mendoza rial [place] Diastolic (mm Hg) 2016-07-30 06:35:00 Mem orial [place] Weight 2016-07-24 02:13:00 [facility] [place] BMI Calculated 2016-07-24 02:13:00 Memori al [place] Height 2016-07-24 02:13:00 160.02 cm [facility] Vin Respitory Rate 2016-06-15 15:00:00 Memori al Vin Systolic (mm Hg) 2016-06-15 15:00:00 Mendoza rial Vin Diastolic (mm Hg) 2016-06-15 15:00:00 Mem orial Vin Respitory Rate 2016-06-15 14:00:00 Memori al [place] Systolic (mm Hg) 2016-06-15 14:00:00 Mendoza rial Vin Diastolic (mm Hg) 2016-06-15 14:00:00 Mem orial [place] Respitory Rate 2016-06-15 13:29:00 Memori al [place] Systolic (mm Hg) 2016-06-15 13:29:00 Mendoza rial [place] Diastolic (mm Hg) 2016-06-15 13:29:00 Mem orial [place] Temperature Oral (F) 2016-06-14 10:56:00 97.1 F [facility] Vin Temperature Oral (F) 2016-06-14 06:55:00 97.1 F [facility] [place] Temperature Oral (F) 2016-06-12 10:00:00 96.8 F [facility] Weight 2016-06-11 04:25:00 [facility] [place] Height 2016-06-11 04:25:00 160.02 cm [facility] [place] BMI Calculated 2016-06-11 04:25:00 Memori al Vin Heart Rate 2016-06-11 02:04:00 [facility] [place] Heart Rate 2016-06-11 00:00:00 [facility] [place] Heart Rate 2016-06-10 20:30:00 [facility] [place] Weight 2016-06-10 16:04:00 [facility] Vin BMI Calculated 2016-06-10 16:04:00 Memori al [place] Height 2016-06-10 16:04:00 160.02 cm [facility] [place] Temperature Oral (F) 2014-06-26 15:12:00 98.0 F [facility] [place] Systolic (mm Hg) 2014-06-26 15:12:00 Mendoza rial [place] Heart Rate 2014-06-26 15:12:00 [facility] [place] Diastolic (mm Hg) 2014-06-26 15:12:00 Mem orial Vin Respitory Rate 2014-06-26 15:12:00 Memori al Vin Systolic (mm Hg) 2014-06-26 13:53:00 Mendoza rial [place] Diastolic (mm Hg) 2014-06-26 13:53:00 Mem orial [place] Respitory Rate 2014-06-26 13:53:00 Memori al Vin Temperature Oral (F) 2014-06-26 13:53:00 98.0 F [facility] [place] Temperature Oral (F) 2014-06-26 12:37:00 98.2 F [facility] [place] Respitory Rate 2014-06-26 12:37:00 Memori al Vin Systolic (mm Hg) 2014-06-26 12:37:00 Mendoza rial [place] Diastolic (mm Hg) 2014-06-26 12:37:00 Mem orial [place] Heart Rate 2014-06-26 09:21:00 [facility] Vin Heart Rate 2014-06-26 06:08:00 [facility] [place] Height 2014-06-26 05:35:00 154.94 cm [facility] [place] Weight 2014-06-26 05:35:00 [facility] [place] BMI Calculated 2014-06-26 05:35:00 Memori al [place] Respitory Rate 2013-04-15 06:10:00 Memori al [place] Diastolic (mm Hg) 2013-04-15 06:10:00 Mem orial Vin Heart Rate 2013-04-15 06:10:00 [facility] [place] Systolic (mm Hg) 2013-04-15 06:10:00 Mendoza rial Vin Temperature Oral (F) 2013-04-15 06:10:00 98.7 F [facility] [place] Respitory Rate 2013-04-15 05:37:00 Memori al [place] Diastolic (mm Hg) 2013-04-15 05:37:00 Mem orial [place] Systolic (mm Hg) 2013-04-15 05:37:00 Mendoza rial Vin Temperature Oral (F) 2013-04-15 05:37:00 98.2 F [facility] Vin Heart Rate 2013-04-15 05:37:00 [facility] [place] Height 2013-04-15 02:06:00 160.02 cm [facility] Weight 2013-04-15 02:06:00 [facility] [place] Temperature Oral (F) 2013-04-15 02:06:00 98.6 F [facility] Respitory Rate 2013-04-15 02:06:00 Memori al [place] Heart Rate 2013-04-15 02:06:00 [facility] [place] Diastolic (mm Hg) 2013-04-15 02:06:00 Mem orial Vin Systolic (mm Hg) 2013-04-15 02:06:00 Mendoza rial Vin Weight 2012-03-14 21:33:00 [facility] [place] Systolic (mm Hg) 2011-12-01 00:33:00 Mendoza rial Vin Respitory Rate 2011-12-01 00:33:00 Memori al Vin Heart Rate 2011-12-01 00:33:00 [facility] [place] Diastolic (mm Hg) 2011-12-01 00:33:00 Mem orial [place] Temperature Oral (F) 2011-12-01 00:33:00 99.6 F [facility] [place] Diastolic (mm Hg) 2011-11-30 21:00:00 Mem orial [place] Heart Rate 2011-11-30 21:00:00 [facility] Vin Respitory Rate 2011-11-30 21:00:00 Memori al Vin Systolic (mm Hg) 2011-11-30 21:00:00 Mendoza rial Vin Temperature Oral (F) 2011-11-30 21:00:00 99.8 F [facility] [place] Respitory Rate 2011-11-30 16:30:00 Memori al Vin Systolic (mm Hg) 2011-11-30 16:30:00 Mendoza rial Vin Diastolic (mm Hg) 2011-11-30 16:30:00 Mem orial [place] Heart Rate 2011-11-30 16:30:00 [facility] [place] Temperature Oral (F) 2011-11-30 16:30:00 99.8 F [facility] [place] Weight 2011-11-29 11:40:00 [facility] [place] Height 2011-11-29 11:40:00 157.48 cm [facility] [place] Weight 2011-11-28 17:16:00 [facility] [place] Weight 2011-09-18 13:30:00 [facility] [place] Height 2011-09-18 13:30:00 154.94 cm [facility] Heart Rate 2011-09-09 13:31:00 [facility] [place] Systolic (mm Hg) 2011-09-09 13:02:00 Mendoza rial [place] Diastolic (mm Hg) 2011-09-09 13:02:00 Mem orial [place] Respitory Rate 2011-09-09 13:02:00 Memori al Vin Temperature Oral (F) 2011-09-09 13:02:00 97.5 F [facility] [place] Diastolic (mm Hg) 2011-09-09 08:00:00 Mem orial [place] Heart Rate 2011-09-09 08:00:00 [facility] [place] Temperature Oral (F) 2011-09-09 08:00:00 98.6 F [facility] [place] Respitory Rate 2011-09-09 08:00:00 Memori al [place] Systolic (mm Hg) 2011-09-09 08:00:00 Mendoza rial [place] Respitory Rate 2011-09-09 04:55:00 Memori al [place] Diastolic (mm Hg) 2011-09-09 04:55:00 Mem orial [place] Systolic (mm Hg) 2011-09-09 04:55:00 Mendoza rial [place] Heart Rate 2011-09-09 04:55:00 [facility] [place] Temperature Oral (F) 2011-09-09 00:55:00 98.7 F [facility] [place] Weight 2011-09-01 19:59:00 [facility] [place] Height 2011-09-01 19:59:00 154.94 cm [facility] [place] Height 2011-09-01 07:01:00 154.94 cm [facility] [place] Weight 2011-09-01 07:01:00 [facility] [place] Respitory Rate 2011-08-23 18:00:00 Memori al [place] Heart Rate 2011-08-23 18:00:00 [facility] [place] Systolic (mm Hg) 2011-08-23 18:00:00 Mendoza rial [place] Diastolic (mm Hg) 2011-08-23 18:00:00 Mem orial [place] Temperature Oral (F) 2011-08-23 18:00:00 97.7 F [facility] [place] Heart Rate 2011-08-23 14:24:00 [facility] [place] Temperature Oral (F) 2011-08-23 14:24:00 98.2 F [facility] [place] Diastolic (mm Hg) 2011-08-23 14:24:00 Mem orial [place] Systolic (mm Hg) 2011-08-23 14:24:00 Mendoza rial [place] Respitory Rate 2011-08-23 14:24:00 Memori al [place] Systolic (mm Hg) 2011-08-23 11:15:00 Mendoza rial [place] Diastolic (mm Hg) 2011-08-23 11:15:00 Mem orial [place] Temperature Oral (F) 2011-08-23 11:00:00 98.3 F [facility] [place] Heart Rate 2011-08-23 11:00:00 [facility] [place] Respitory Rate 2011-08-22 22:00:00 Memori al [place] Height 2011-08-20 09:12:00 154.94 cm [facility] [place] Weight 2011-08-20 09:12:00 [facility] [place] Height 2011-08-19 20:28:00 154.94 cm [facility] [place] Weight 2011-08-19 20:28:00 [facility] Procedures Procedure Date / Time Performed Performing Clinician [facility] e Emergency department visit 2013-04-15 05:00:00 [facility] [place] for the evaluation and management of a patient, which requires these 3 kamara components within the constraints imposed by the urgency of the patient's clinical condition and/or mental status: A comprehensive history; A comprehensi Injection or Infusion of 2013-04-15 05:00:00 Mem orial [place] Other Therapeutic or Prophylactic Substance Intravenous infusion, 2013-04-15 05:00:00 Blasori al [place] hydration; each additional hour (List separately in addition to code for primary procedure) Therapeutic, prophylactic, 2013-04-15 05:00:00 M [facility] or diagnostic injection (specify substance or drug); each additional sequential intravenous push of a new substance/drug (List separately in addition to code for primary procedure) Therapeutic, prophylactic, 2013-04-15 05:00:00 M [facility] [place] or diagnostic injection (specify substance or drug); intravenous push, single or initial substance/drug [facility] procedure [facility] (esophagogastroduodenoscop y) gastric outlet reduction section Shahid Joseph n Tubal ligation [facility] 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 Encounters Start End Encounter Admission Attending Care Care Encounter Source Date/Time Date/Time Type Type Clinicians Facility Department ID 2021-02-17 Preadmit nullFlavo [id number] Memoria 05:42:55 r [facility] 68 [facility] 2021-02-17 Outpatient nullFlavo [facility] [id number] Memoria 05:42:55 r Medical 06 l [facility] 2021-02-17 Outpatient nullFlavo [facility] [id number] Memoria 05:42:55 r Medical 05 l [facility] 2020-12-25 Outpatient [facility] [id number] [place] 11:57:36 [facility] 2021-01-21 2021-01-29 [facility] [id number] Memoria 15:50:00 20:14:00 r Vin 12 l [facility] 2021-01-21 2021-01-29 Outpatient Josh [facility] [id number] 10:50:00 15:14:00 Monisha 12 2021-01-21 2021-01-21 Outpatient Josh [facility] [id number] 10:50:00 10:50:00 Monisha 12 2021-01-21 2021-01-21 Inpatient U [facility] CAR 7512 [facility] 10:50:00 06:06:00 2021-01-03 2021-01-03 Office DOMINIQUE Diane [id number] 07:44:43 09:30:54 Visit Alexandr ALTMAN [id number] MEDICAL [id number] [facility] [id number] 2020-12-24 2020-12-25 Outpatient nullFlavo [facility] [id number] Memoria 15:32:00 04:59:00 r Disease 11 l [facility] 2020-12-24 2020-12-24 Outpatient Kyle, [facility] [id number] 10:32:00 23:59:00 Marvin Madden 2020-12-24 2020-12-24 Outpatient [facility] [id number] [facility] 10:32:00 10:32:00 2020-10-27 2020-10-27 Keyona Olivares [facility] [id number] 00:00:00 00:00:00 (Out) Oz Sims [id number] [place] [id number] [place] [id number] [facility] 2020-10-24 2020-10-24 Orders Doctor MARSHALL [id number] 00:00:00 00:00:00 Only Unassigned, MAGDALENO [id number] College [facility] [id number] [id number] 2020-09-24 2020-09-24 Refill JARON Gonzalez [id number] 00:00:00 00:00:00 Jose Luis Cent[place] [id number] [place] [id number] Professio [id number] [facility] 220 [facility] 2020-09-09 2020-09-09 Patient Daniel, [facility] [id number] 00:00:00 00:00:00 Outreach Earl PRIMARY [id number] Manuel CARE [id number] P[facility]ILLION [id number] 2020-07-23 2020-07-23 Office Black, [facility] [id number] 13:31:20 14:37:36 Visit Deja PRIMARY [id number] A CARE [id number] PAVILLION [id number] 2020-01-25 2020-01-31 Inpatient 1 ChivoJose husseinRei [facility] [id number] 21:31:00 18:15:00 Rei Waldron [facility] 2016-07-24 2016-07-30 [facility] [id number] Memoria 02:04:00 16:20:[address] 2016-07-23 2016-07-30 Outpatient Yaquelin [facility] [id number] 20:04:00 10:20:00 Luna 10 2016-06-10 2016-06-15 Inpatient [facility] [id number] Memoria 16:02:00 18:23:[address] 2016-06-10 2016-06-15 Outpatient Franck [facility] [id number] 10:02:00 12:23:00 Joe W 09 2014-06-26 2014-06-26 [facility] [id number] Memoria 05:25:00 15:14:00 Emergency r [address] 2014-06-25 2014-06-26 Outpatient Courtney, 2.16.840. 2.16.840. 1. [id number] 23:25:00 09:14:00 Atul [id number] Cem 3.615.0.1 5.0.166 71 4178-10-25 2013-04-15 Outpatient 2.16.840. 2.16.840.1. 4 [id number] Mem[facility] 21:04:00 01:45:00 [id number] 07 l 3.615.0.1 5.0.101 Jake n [facility] 2013-04-14 2013-04-15 Outpatient 2.16.840. 2.16.840.1. 4 [id number] Memoria 21:04:00 01:45:00 [id number] 07 l 3.615.0.1 5.0.101 Jake n [facility] 2013-04-14 2013-04-15 Outpatient 2.16.840. 2.16.840.1. 4 [id number] Memoria 21:04:00 01:45:00 [id number] 07 l 3.615.0.1 5.0.101 Jake n [facility] 2013-04-14 2013-04-15 Outpatient 2.16.840. 2.16.840.1. 4 [id number] Memoria 21:04:00 01:45:00 [id number] 07 l 3.615.0.1 5.0.101 Jake n [facility] 2013-04-14 2013-04-15 Outpatient 2.16.840. 2.16.840.1. 4 [id number] Mem[facility] 21:04:00 01:45:00 [id number] 07 l 3.615.0.1 5.0.101 Jake n [facility] 2013-04-14 2013-04-15 Emergency nullFlavo [id number] Memoria 21:04:00 01:45:00 eduin Zaragoza 07 iván Banuelos 2012-03-14 2012-03-14 Emergency nullFlavo [id number] Memoria 16:32:00 22:39:00 r [place] 04 l [place] 2011-11-28 2011-11-30 OU nullFlavo [facility] [id number] Memoria 12:16:00 20:40:00 r Medical 03 l [facility] 2011-09-18 2011-09-18 Emergency nullFlavo [facility] [id number] Memoria 08:23:00 13:34:00 r Medical 02 l [facility] 2011-09-01 2011-09-09 Inpatient nullFlavo [facility] [id number] Memoria 01:40:00 15:00:00 r Medical 01 l [facility] 2011-08-19 2011-08-23 Inpatient nullFlavo [facility] [id number] Memoria 14:25:00 15:28:00 r Medical 00 l [facility] Results Test Description Test Time Test Comments Results Result Comments Source CHEM PANEL 2021-01-29 94 [facility] Nidia nn 08:17:00 CHEM PANEL 2021-01-29 27 [facility] Nidia nn 08:17:00 CHEM PANEL 2021-01-29 4.95 [facility] Nidia nn 08:17:00 CHEM PANEL 2021-01-29 136 [facility] Nidia nn 08:17:00 CHEM PANEL 2021-01-29 3.9 [facility] Nidia nn 08:17:00 CHEM PANEL 2021-01-29 103 [facility] Nidia nn 08:17:00 CHEM PANEL 2021-01-29 30 [facility] Nidia nn 08:17:00 CHEM PANEL 2021-01-29 6.9 [facility] Nidia nn 08:17:00 CHEM PANEL 2021-01-29 8.5 [facility] Nidia nn 08:17:00 CHEM PANEL 2021-01-29 10 [facility] Nidia nn 08:17:00 CHEM PANEL 2021-01-29 3.0 [facility] Nidia nn 08:17:00 CHEM PANEL 2021-01-29 2.4 [facility] [place] nn 08:17:00 HEMATOLOGY 2021-01-29 2.3 [facility] nn 08:17:00 HEMATOLOGY 2021-01-29 2.65 [facility] Nidia nn 08:17:00 HEMATOLOGY 2021-01-29 7.9 [facility] Nidia nn 08:17:00 HEMATOLOGY 2021-01-29 24.0 [facility] Nidia nn 08:17:00 HEMATOLOGY 2021-01-29 90.6 [facility] Nidia nn 08:17:00 HEMATOLOGY 2021-01-29 08:17:00 Test Item Value Reference Range Interpretation Comme nts MCH (test code = MCH) 29.7 pg 27.0-31.0 Memorial [id number] 08:17:0032.7[facility]ann[facility]OLOGY 2021-01-29 08:17:0019.1[facility] [id number] 08:17:0071[facility] JvcjjdyFDAPNHVBNX7028-08-75 08:17:009.9[facility]orial DbxddofKLNWNTVXMJ5507-87-80 08:17:0056.1[facility] AiyszxqGESKLGHCMN3008-95-59 08:17:0028.9[facility] Vin CUSKKFMGHN0662-51-83 08:17:008.1[facility] PtbyfzbQTERSCIWCL6463-87-07 08:17:005.9 [facility] SbsxzrvGRFCAOVWRI4878-91-88 08:17:001.0[facility]annHEMATOLOGY 2021-01-29 08:17:001.3[facility] BqobchhVIYUVYPXGB4218-65-19 08:17:000.7[facility] WccqawjOLTAIYVOQV0435-27-38 08:17:000.2[facility] IbruuzrQYFWPUTVLO8003-00-45 08:17:000.1[facility]annCHEM CBPEF8403-89-06 09:30:0061[facility]annCHEM PDDAP8478-74-21 09:30:0013[facility]annCHEM SFPWY0109-88-11 09:30:003.71 [facility]annCHEM RWPZO8607-50-50 09:30:27860Vvelxovh HermannCHEM PANEL 2021-01-28 09:30:004.3[facility] HermannCHEM SFPPV8026-41-47 09:30:16872Yghdmovq HermannCHEM HYMAP7298-57-87 09:30:0027[facility]annCHEM JGGJV8327-90-32 09:30:007.9[facility]annCHEM ZXPBQ1810-79-47 09:30:0010.3[facility] HermannCHEM OCFNZ6772-76-44 09:30:0015[facility]annCHEM RKYGC7251-99-87 09:30:002.3 [facility]annCHEM BNRNA2577-56-02 09:30:003.1[facility]annHEMATOLOGY 2021-01-28 09:30:0061.5[facility] PiebnwwPLOTEACSBG8100-18-72 09:30:0024.6[facility] ElwsnmyODECLJNJEM8798-81-15 09:30:007.4[facility] WourkqqDUCROEITEB8598-88-14 09:30:005.5[facility] CpxszoqYRUZDMJPXD8571-09-40 09:30:001.0[facility] IDUDLOBIGE1450-90-07 09:30:001.6[facility] YbsgqhnQQZYXKCJXS5514-12-76 09:30:000.6 [facility] NvpqnxmXYIIFCDDPC0518-03-19 09:30:000.2[facility]annHEMATOLOGY 2021-01-28 09:30:000.1[facility] ZknitizQPHVPAEELP9916-99-11 09:30:002.5[facility] VbbybinJERPCVWGZW8207-72-24 09:30:002.68[facility] LjybgqzZTJFPHZZDN8301-12-60 09:30:008.2[facility] FttxeavRAGMETIYTF6763-95-23 09:30:0024.3[facility] Vin XDEIZQOZBC8519-95-35 09:30:0090.9[facility] FwrdqxjWTIXSBXHKO6116-70-27 09:30:00 Test Item Value Reference Range Interpretation Comments MCH (test code = MCH) 30.5 pg 27.0-31.0 [facility] NxpdibhVQARDURCKP5331-60-44 09:30:0033.6[facility] HermannHEMATOLOGY 2021-01-28 09:30:0019.4[facility] PechbafPFIBXDLOPQ6934-86-08 09:30:0070[facility] FaabclkYIATHTNGYX1523-73-89 09:30:0010.7[facility] HermannCHEM HSWXN8675-44-53 05:10:0069[facility]annCHEM RUNUL5381-22-67 05:10:0029[facility]annCHEM FUBWN9597-47-33 05:10:005.14[facility]annCHEM SFGJX3305-57-04 05:10:71883 [facility]annCHEM ETDZD6175-50-93 05:10:005.1[facility]annCHEM PANEL 2021-01-27 05:10:0098[facility]annCHEM FJCEG9326-34-47 05:10:0029[facility]annCHEM DYUNC8793-29-14 05:10:007.6[facility]annCHEM AIAOU4533-57-90 05:10:0012.1[facility]annCHEM CYTAR5468-50-45 05:10:0010[facility]annCHEM HXGUC5328-67-09 05:10:002.3[facility]annCHEM XCPSU9732-22-55 05:10:005.0 [facility] YkwngzgXCMRYINPWL1755-15-09 05:10:002.7[facility]annHEMATOLOGY 2021-01-27 05:10:002.80[facility] VggkcvbVGHECQKEJT0598-72-57 05:10:008.5[facility] PjustqzIBNUDTPCGA6589-81-54 05:10:0025.7[facility] SoievlzLFLEYWWZZC4474-01-85 05:10:0091.7[facility] MkqruusIOSZQTFQLU2907-99-47 05:10:00 Test Item Value Reference Range Interpretation Comments MCH (test code = MCH) 30.4 pg 27.0-31.0 [facility] CawqzweHUKMCQAXMS9650-56-10 05:10:0033.1[facility] HermannHEMATOLOGY 2021-01-27 05:10:0019.2[facility] PraynxfJHPBSKXEZZ3650-31-87 05:10:0072[facility] MtcqoscJAWXFQNEWR9771-38-48 05:10:009.9[facility] MmyabmcPBSVUVMOPA0623-49-04 05:10:0072.6[facility] YbaueljCZPQWHQTOR1886-16-67 05:10:0015.9[facility] LGJQMRJBJO7282-44-61 05:10:007.3[facility] LmrjwfwGEWOGRRXUO6148-41-16 05:10:003.4 [facility] MwgtlfdFCQZSKVUYP4734-31-11 05:10:000.8[facility]annHEMATOLOGY 2021-01-27 05:10:001.9[facility] EtpjvgqMNUKWKWWUU2882-62-06 05:10:000.4[facility] LdvixbaHNXSPBAKVC6391-41-01 05:10:000.2[facility] RkhhlddVNVEEWQZJK6248-85-49 05:10:000.1[facility] HermannPARATHYROID ZAUIZAI0142-68-25 05:10:001.10[facility] HermannPARATHYROID HSJCVVM2724-63-38 05:10:001.06[facility] HermannMOLECULAR CVNJQVOOFW1505-12-17 18:36:00Negative (01/26/21 1:36 PM)[facility] PARATHYROID LJIAFXV6142-14-57 07:33:001.12[facility] HermannPARATHYROID PROFILE 2021-01-26 07:33:001.07[facility] HermannCHEM TIIMP5590-71-15 07:30:0065[facility]annCHEM HKHEO1272-44-61 07:30:0021[facility]annCHEM EGUXC4428-01-03 07:30:004.18[facility]annCHEM QFAMH7868-36-41 07:30:37835Esdmbipu HermannCHEM YBKBI8198-53-35 07:30:004.5[facility]annCHEM CUPLP0731-44-19 07:30:0099 [facility]annCHEM EPAOP9039-14-60 07:30:0031[facility]annCHEM PANEL 2021-01-26 07:30:0010.5[facility] HermannCHEM CAYDO8867-79-56 07:30:007.9[facility]annCHEM ZKYWV9196-97-12 07:30:0013[facility]annCHEM SUYZD3663-98-68 07:30:002.2[facility]annCHEM DLUEW4994-21-13 07:30:004.4[facility] Vin RFSKCTCTQP6798-91-50 07:30:002.3[facility] OelnqwmQARYMSDDBU4665-39-66 07:30:00 2.88[facility] VcpgaxaMYFVRRSFNX1626-13-14 07:30:008.6[facility]annHEMATOLOGY 2021-01-26 07:30:0026.6[facility] KrtetzwZQYGIHJQCE8118-03-16 07:30:0092.2[facility] WggjqtzKGSUHLDDJJ9034-20-29 07:30:00 Test Item Value Reference Range Interpretation Comments MCH (test code = MCH) 29.8 pg 27.0-31.0 [facility] YtxupceAYNWEIBQNA0953-76-94 07:30:0032.4[facility] HermannHEMATOLOGY 2021-01-26 07:30:0019.7[facility] IwcwnynQVUSQRLHAG9055-54-78 07:30:0083[facility] TvsbstaYGWJQPWJNZ0507-56-60 07:30:0010.2[facility] KzebraqTHRWDZRAXM2448-42-04 07:30:0064.0[facility] SxtjgweBSVKMPOCCR4826-93-65 07:30:0024.1[facility] INEHQACBPC0342-41-19 07:30:007.0[facility] SucidgdXAGQNKDSES3105-21-14 07:30:003.7 [facility] BhapikwNNVOFSIQQF2365-46-15 07:30:001.2[facility] HermannHEMATOLOGY 2021-01-26 07:30:001.5[facility] QyfmxxtDTQNZQNHPJ4634-30-03 07:30:000.6[facility] RtoiaeyISQQMZWOPB9749-97-04 07:30:000.2[facility] MvmprasELUKWJVQEL9183-16-15 07:30:000.1[facility] HermannCHEM VDLAZ3746-90-65 09:32:0059[facility]annCHEM VTFLG8513-96-34 09:32:0011[facility]annCHEM CMKAB2449-92-21 09:32:002.75 [facility]annCHEM VEEJU2015-99-67 09:32:75834Zkfjwwlz HermannCHEM PANEL 2021-01-25 09:32:004.1[facility] HermannCHEM LCOSN9727-23-55 09:32:55580Ymmyvrwf HermannCHEM SYMNM1429-03-81 09:32:0029[facility]annCHEM OFGMU1499-95-28 09:32:008.3[facility]annCHEM DZRTH8285-62-05 09:32:009.1[facility] HermannCHEM MGSEP4441-76-37 09:32:0021[facility]annCHEM MVAWA1130-89-54 09:32:002.2 [facility]annCHEM WKAHE1929-12-31 09:32:003.9[facility]annHEMATOLOGY 2021-01-25 09:32:002.3[facility] ElvqrvyGEHBTFUZDG5761-17-36 09:32:002.78[facility] EgedaezKWOJJYTIRH5299-11-53 09:32:008.4[facility] EsaeascNMBUYVQOYB0368-92-74 09:32:0025.2[facility] YfhxnroCJVSGEEXVJ5417-70-73 09:32:0090.5[facility] Vin TDWHFGTWWA0364-51-70 09:32:00 Test Item Value Reference Range Interpretation Comments MCH (test code = MCH) 30.4 pg 27.0-31.0 [facility] IhbmovsQLMGYUOKPO4148-83-87 09:32:0033.5[facility]annHEMATOLOGY 2021-01-25 09:32:0019.0[facility] HtflddgXXDEDLGXKE8084-57-03 09:32:0087[facility] YllgqynRKSHXCMXRB7041-93-89 09:32:0010.0[facility] HermannBLOOD BANK RESULTS 2021-01-24 05:33:00Negative (01/24/21 12:33 AM)[facility]annHEMATOLOGY 2021-01-24 05:33:0060.2[facility] XwjbdmaQWVZAKCSUW0162-97-42 05:33:0028.6[facility] FsxyuniRSBBUSLSYO9215-81-98 05:33:005.8[facility] MtotrquPQZMPWRQDO7976-58-45 05:33:004.2[facility] CyvpgmhPWGTXYNCDN6981-50-61 05:33:001.2[facility] WALLPLWJTZ9412-28-49 05:33:002.2[facility] GwlvegvZEZSKWDQEJ3819-60-35 05:33:001.1 [facility] RmyeixsLFIAEPMWFQ0235-91-12 05:33:000.2[facility] HermannHEMATOLOGY 2021-01-24 05:33:000.2[facility] MpuvkrdGSYOGXMROI7744-81-18 05:53:00 Test Item Value Reference Range Interpretation Comments PT (test code = PT) 14.4 s 12.0-14.7 [facility]AahsqleKZKTRRPCUF8104-57-78 05:53:00 Test Item Value Reference Range Interpretation Comments INR (test code = INR) 1.13 1 0.85-1.17 [facility] CenterNekvbteMGUXEJVPVA0986-85-06 05:53:20165Vagdeuty HermannHEMATOLOGY 2021-01-23 05:53:00 Test Item Value Reference Range Interpretation Comments Thrombin Time (test code = Thrombin 15.9 s 15.0-21.2 Time) [facility] CenterLomrdnyODZTSYGHTR2907-37-22 05:53:00 Test Item Value Reference Range Interpretation Comments PTT (test code = PTT) 47.0 s 22.9-35.8 [facility] BwuwuacANXWQXORFR8802-78-28 05:53:000.91Meksrial HermannHEMATOLOGY 2021-01-23 05:53:000.1[facility] HermannPARATHYROID ZRLNSVM3396-18-31 05:53:001.24 [facility] HermannPARATHYROID GFWUPFK2606-76-15 05:53:001.25[facility] HermannCHEM CUKGS1528-19-10 10:09:0049[facility]annCHEM IALUZ2139-94-73 10:09:002.8 [facility]annCHEM MPNPO1381-60-44 10:09:0041[facility] HermannCHEM PANEL 2021-01-22 10:09:000.2[facility] HermannCHEM WUPIV3432-28-74 10:09:000.6[facility] HermannCHEM IPFVI4139-30-19 10:09:000.4[facility] HermannCHEM JABKS2873-48-33 10:09:005.6[facility] HermannCHEM GZIGE5004-64-10 10:09:0033[facility]annCHEM BRCKI1813-60-81 10:09:002.8[facility] HermannCHEM MHVIK6744-59-62 10:09:00 Test Item Value Reference Range Interpretation Comments A/G Ratio (test code = A/G Ratio) 1.0 1 0.7-1.6 [facility]annCHE[facility] EGWYS6249-27-35 10:09:0019MeTexas [facility] HospitalannCHEM PANEL 2021-01-22 10:09:00<10MeksriMethod[facility] HospitalNvhyhswYFGRUKYLZF2930-46-93 10:09:00 Test Item Value Reference Range Interpretation Comments PTT (test code = PTT) 41.4 s 22.9-35.8 [facility]TxxbljnNIBZTRAHVR1701-73-90 10:09:00 Test Item Value Reference Range Interpretation Comments PT (test code = PT) 15.4 s 12.0-14.7 [facility] MoundRubzezoRDILUXSZVT1321-32-65 10:09:00 Test Item Value Reference Range Interpretation Comments INR (test code = INR) 1.24 1 0.85-1.17 [facility]DhdgmewNGCHCSLQKN4888-74-10 10:09:86217NporhnyhTexas Health [facility] Flower MoundHEMATOLOGY 2021-01-22 10:09:00 Test Item Value Reference Range Interpretation Comments Thrombin Time (test code = Thrombin 16.6 s 15.0-21.2 Time) [facility] MoundBsrmofoVSBQLGCYRV0096-02-83 10:09:004.91MeksriMethodist [facility] HospitalHEMATOLOGY 2021-01-22 10:09:000.1[facility]annSPECIAL TBERAVJJR4395-24-07 10:09:005.6 [facility] CenterannCHEM RNUEF8100-46-74 09:07:004MeksriAnt[facility] Medical CenterannHEMATOLOGY 2021-01-22 09:07:00 Test Item Value Reference Range Interpretation Comments Thrombin Time (test code = Thrombin 18.0 s 15.0-21.2 Time) [facility] MoundRmolfepNPLTCZSXSF4922-39-30 09:07:00 Test Item Value Reference Range Interpretation Comments PT (test code = PT) 24.6 s 12.0-14.7 [facility] MoundWydeblmUPHRUCZPZB6286-12-03 09:07:00 Test Item Value Reference Range Interpretation Comments INR (test code = INR) 2.31 1 0.85-1.17 [facility] MoundGrnjwzzKFXXYTNMQN9391-53-29 09:07:00 Test Item Value Reference Range Interpretation Comments PTT (test code = PTT) 57.5 s 22.9-35.8 [facility]oundAmqlfgdDEQXQCIYXL8663-65-91 09:07:13840Woaavlnp HermannHEMATOLOGY 2021-01-22 09:07:002.28[facility] HermannBLOOD BANK TPGCRUZ9182-00-96 04:52:00 Product available (01/21/21 11:52 PM)[facility] HermannCARDIAC BQTZLKF9607-58-90 00:38:00<0.02[facility] HermannCARDIAC BQYQRPH3763-86-15 17:47:642102Qsluhjsh HermannCARDIAC KOZURWE0060-76-44 17:47:000.02[facility] HermannIMMUNOLOGY 2021-01-21 17:47:00Negative *NA*(01/21/21 12:47 PM)[facility]annCHEM PANEL 2021-01-21 17:43:00 Test Item Value Reference Range Interpretation Comments B/C Ratio (test code = B/C Ratio) 5 1 6-25 [facility]annCHEM IYQEI8103-97-24 17:43:0066[facility]annCHEM PANEL 2021-01-21 17:43:003.0[facility] HermannCHEM MWSKX5484-89-80 17:43:0040[facility]annCHEM VUWNC1350-68-49 17:43:000.5[facility] HermannCHEM UOGYN1226-57-48 17:43:005.7[facility] HermannCHEM HZFPJ0831-50-73 17:43:0052[facility]annCHEM NKJTQ3364-15-93 17:43:002.7[facility] HermannCHEM OILHQ6006-05-60 17:43:00 Test Item Value Reference Range Interpretation Comments A/G Ratio (test code = A/G Ratio) 1.1 1 0.7-1.6 [facility]annCHEM QEVDI7069-83-77 17:43:001.1[facility]annBLOOD BANK UCSSBVC6752-37-40 16:20:00Negative (01/21/21 11:20 AM)[facility]annHEMATOLOGY 2021-01-21 16:20:001+ *ABN*(01/21/21 11:20 AM)[facility]annREFERENCE LAB QDCRIBR6203-08-99 15:35:002.0[facility]annREFERENCE LAB MRMMFOS9373-61-79 15:35:0038.6[facility]annREFERENCE LAB BBQFBRU8987-87-39 15:35:54214.2 [facility]annREFERENCE LAB DUUSPIL0010-20-54 15:35:0013.8[facility] Vin RJXGOWNJDHIJ6258-62-09 13:21:005.1[facility] GtiuqrqAVKCNZECUNWRR4609-04-31 13:21:00Negative 8*NA*(01/21/21 8:21 AM)[facility] MdxacptWDKGENSUSY2121-72-24 11:19:00Not Detected (01/21/21 6:19 AM)[facility] Bhemuvx6338-03-99 16:39:05 Test Item Value Reference Range Interpretation Comments Glucose POC (test 183 mg/dL 70-115 H If you con lab technician your code = Glucose POC) patient critically ill, the Merlin-Accu Check Infrom II meter should not be used for Glucose determination. Draw a venous Glucose and send to the main Lab for analysis. Urine Nkfehxk9312-76-14 11:32:13 Test Item Value Reference Range Interpretation [...] Escherichia coli C Urine Added by GL_SJM_UA_CUL_INDPOC Bnsvmeb2597-61-91 07:52:10 Test Item Value Reference Range Interpretation Comments Glucose POC (test 160 mg/dL 70-115 H If you con lab technician your code = Glucose POC) patient critically ill, the Merlin-Accu Check Infrom II meter should not be used for Glucose determination. Draw a venous Glucose and send to the main Lab for analysis. POC Svnkcdo4258-03-19 19:32:05 Test Item Value Reference Range Interpretation Comments Glucose POC (test 184 mg/dL 70-115 H If you con lab technician your code = Glucose POC) patient critically ill, the Merlin-Accu Check Infrom II meter should not be used for Glucose determination. Draw a venous Glucose and send to the main Lab for analysis. POC Iwexeoz4744-47-62 17:16:35 Test Item Value Reference Range Interpretation Comments Glucose POC (test 281 mg/dL 70-115 H Notify RN or MDIf you code = Glucose POC) consider your patient critically ill, the Merlin-Accu Chec k Infrom II meter should not be used for Glucos e determination. Draw a venous Glucose and send to the main Lab for analysis. POC Ikanetj7526-86-79 12:00:38 Test Item Value Reference Range Interpretation Comments Glucose POC (test 138 mg/dL 70-115 H Notify RN or MDIf you code = Glucose POC) consider your patient critically ill, the Merlin-Accu Chec k Infrom II meter should not be used for Glucos e determination. Draw a venous Glucose and send to the main Lab for analysis. POC Ucbxilj2155-12-07 07:41:32 Test Item Value Reference Range Interpretation Comments Glucose POC (test 206 mg/dL 70-115 H Notify RN or MDIf you code = Glucose POC) consider your patient critically ill, the Merlin-Accu Chec k Infrom II meter should not be used for Glucos e determination. Draw a venous Glucose and send to the main Lab for analysis. Urinalysis Tudktessumj3249-66-54 21:07:21 Test Item Value Reference Range Interpretation Comments UA WBC (test code = UA WBC) TNTC 0-5 A UA RBC (test code = UA RBC) 6-10 0-5 A UA Bacteria (test code = UA Bacteria) Profuse A UA Squam Epithelial (test code = UA 6-10 A Squam Epithelial) Urinalysis with Culture, if idziiqcva4570-96-77 20:35:14 Test Item Value Reference Range Interpretation [...] Micro Indicated Not Indicated A Ind?) POC Eemcziu7420-32-25 19:06:34 Test Item Value Reference Range Interpretation Comments Glucose POC (test 207 mg/dL 70-115 H If you con lab technician your code = Glucose POC) patient critically ill, the Merlin-Accu Check Infrom II meter should not be used for Glucose determination. Draw a venous Glucose and send to the main Lab for analysis. POC Frmohnd1705-54-42 17:12:03 Test Item Value Reference Range Interpretation Comments Glucose POC (test 173 mg/dL 70-115 H Notify RN or MDIf you code = Glucose POC) consider your patient critically ill, the Merlin-Accu Chec k Infrom II meter should not be used for Glucos e determination. Draw a venous Glucose and send to the main Lab for analysis. POC Anolddy8079-04-15 11:58:01 Test Item Value Reference Range Interpretation Comments Glucose POC (test 289 mg/dL 70-115 H Notify RN or MDIf you code = Glucose POC) consider your patient critically ill, the Merlin-Accu Chec k Infrom II meter should not be used for Glucos e determination. Draw a venous Glucose and send to the main Lab for analysis. POC Rqbaunc7551-11-79 08:19:37 Test Item Value Reference Range Interpretation Comments Glucose POC (test 201 mg/dL 70-115 H Notify RN or MDIf you code = Glucose POC) consider your patient critically ill, the Merlin-Accu Chec k Infrom II meter should not be used for Glucos e determination. Draw a venous Glucose and send to the main Lab for analysis. POC Lqvmfty3523-37-05 20:37:35 Test Item Value Reference Range Interpretation Comments Glucose POC (test 272 mg/dL 70-115 H If you con lab technician your code = Glucose POC) patient critically ill, the Merlin-Accu Check Infrom II meter should not be used for Glucose determination. Draw a venous Glucose and send to the main Lab for analysis. POC Dkupwel5396-59-18 17:23:05 Test Item Value Reference Range Interpretation Comments Glucose POC (test 229 mg/dL 70-115 H If you con lab technician your code = Glucose POC) patient critically ill, the Merlin-Accu Check Infrom II meter should not be used for Glucose determination. Draw a venous Glucose and send to the main Lab for analysis. POC Upevvpo9169-94-04 12:01:01 Test Item Value Reference Range Interpretation Comments Glucose POC (test 155 mg/dL 70-115 H If you con lab technician your code = Glucose POC) patient critically ill, the Merlin-Accu Check Infrom II meter should not be used for Glucose determination. Draw a venous Glucose and send to the main Lab for analysis. POC Rojtcfa8823-30-98 08:07:32 Test Item Value Reference Range Interpretation Comments Glucose POC (test 248 mg/dL 70-115 H If you con lab technician your code = Glucose POC) patient critically ill, the Merlin-Accu Check Infrom II meter should not be used for Glucose determination. Draw a venous Glucose and send to the main Lab for analysis. IG Xnyqe2342-88-96 06:50:39 Test Item Value Reference Range Interpretation Comments IG (test code = IG) 0.7 % 0.0-5.0 IG Abs (test code = IG Abs) 0 x10 N Complete Blood Count with Eqdzeknjibhn0901-42-14 06:50:38 Test Item Value Reference Range Interpretation [...] code = IPF) 0 % N Automated Ctgjqcjokwem5634-02-04 06:50:38 Test Item Value Reference Range Interpretation Comments Neutro Auto (test code = Neutro 50.3 % 36.0-70.0 Auto) Lymph Auto (test code = Lymph Auto) 38.6 % 12.0-44.0 Fillmore Auto (test code = Fillmore Auto) 7.3 % 0.0-11.0 Eos, Auto (test code = Eos, Auto) 2.4 % 0.0-7.0 Basophil Auto (test code = Basophil 0.7 % 0.0-2.0 Auto) Neutro Absolute (test code = Neutro 3.0 x10 1.6-7.4 Absolute) Lymph Absolute (test code = Lymph 2.28 x10 .50-4.60 Absolute) Fillmore Absolute (test code = Fillmore .43 x10 .00-1.20 Absolute) Eos Absolute (test code = Eos 0.14 x10 0.00-0.74 Absolute) Baso Absolute (test code = Baso 0.04 x10 0.00-0.21 Absolute) Basic Metabolic Owlfq6639-52-49 05:38:20 Test Item Value Reference Range Interpretation [...] = Lipemia) 0 mg/dL 8-11 Basic Metabolic Isvya2417-42-77 05:38:20 Test Item Value Reference Range Interpretation [...] = 0 mg/dL 8-11 Lipemia) Basic Metabolic Klctc6197-36-03 05:38:20 Test Item Value Reference Range Interpretation [...] ag e have not been validated by [facility] MDRD study and should be interpreted [...] ag e have not been validated by [facility] MDRD study and should be interpreted [...] code = 0 mg/dL 8-11 Lipemia) POC Dimwhhx2221-99-92 20:28:33 Test Item Value Reference Range Interpretation Comments Glucose POC (test 169 mg/dL 70-115 H If you con lab technician your code = Glucose POC) patient critically ill, the Merlin-Accu Check Infrom II meter should not be used for Glucose determination. Draw a venous Glucose and send to the main Lab for analysis. POC Yjygxdq6286-78-56 16:39:30 Test Item Value Reference Range Interpretation Comments Glucose POC (test 103 mg/dL 70-115 If you con lab technician your code = Glucose POC) patient critically ill, the Merlin-Accu Check Infrom II meter should not be used for Glucose determination. Draw a venous Glucose and send to the main Lab for analysis. RPR Srwedostxdl5271-57-38 12:08:56 Test Item Value Reference Range Interpretation Comments RPR Qual (test code = RPR Qual) Non-Reactive Non-Reactive Reactive Control (test code = Reactive Reactive Control) Weak Reactive Control (test Weak Reactive code = Weak Reactive Control) Non-Reactive Control (test code Non-Reactive = Non-Reactive Control) Lot # (test code = Lot #) [id number] N Expiration Dt (test code = 03-20-2021 N Expiration Dt) POC Xywuhel2033-62-36 11:52:31 Test Item Value Reference Range Interpretation Comments Glucose POC (test 250 mg/dL 70-115 H If you con lab technician your code = Glucose POC) patient critically ill, the Merlin-Accu Check Infrom II meter should not be used for Glucose determination. Draw a venous Glucose and send to the main Lab for analysis. POC Gqdbpjy3773-04-24 07:55:29 Test Item Value Reference Range Interpretation Comments Glucose POC (test 205 mg/dL 70-115 H If you con lab technician your code = Glucose POC) patient critically ill, the Merlin-Accu Check Infrom II meter should not be used for Glucose determination. Draw a venous Glucose and send to the main Lab for analysis. Lipid Fewpq1113-78-92 05:46:04 Test Item Value Reference Range Interpretation [...] LDL/HDL Ratio=L DL Calc/HDL Chol Thyroid Stimulating Nkjyyws7675-15-24 05:46:04 Test Item Value Reference Range Interpretation Comments TSH (test code = TSH) 3.274 mcIU/mL 0.550-4.780 Hemoglobin [id number] 05:41:08 Test Item Value Reference Range Interpretation Comments Hemoglobin A1c (test code 7.6 % 4.0-5.8 H Di abetic >=6.5 = Hemoglobin A1c) %Prediabet es 5.7-6.4 %Normal <5.7 % Hepatitis B Surface Bnjpfiv5803-59-38 21:19:36 Test Item Value Reference Range Interpretation Comments Hep Bs Ag (test code = Hep Bs Non-Reactive Non-Reactive Ag) Novel Coronavirus SARS-CoV-2, [id number] 11:16:16 Test Item Value Reference Range Interpretation [...] observations, p atient history, and epidemiological information.The [employer] Xpress SARS-CoV -2 test is only for use un martha the Food and Drug Administration s Emergency Use Authorization." Novel Coronavirus (COVID-19), EMANUEL [id number] 11:11:24TNPTest not sent and performed at [facility].Rapid was perfomed in Microbiology.Wrong covid test was ord ered.Urine DOA [id number] 00:17:49 Test Item Value Reference Range Interpretation [...] Propoxyphene Confirmation wi thin 7 days. Alcohol Hfaxv8436-17-14 00:17:29 Test Item Value Reference Range Interpretation Comments Ethanol Level 9.0 mg/dL N The pharmacolo gical (test code = response to blo od alcohol Ethanol Level) levels may va ry from individual to i ndividual. The fatal omkar ntration has been report ed to be >400 mg/dl. Comprehensive Metabolic Hdqhj6263-82-06 00:17:28 Test Item Value Reference Range Interpretation [...] = Lipemia) 0 g/dL 1-2 Comprehensive Metabolic Ojwux5003-54-96 00:17:28 Test Item Value Reference Range Interpretation [...] = 0 g/dL 1-2 Lipemia) Comprehensive Metabolic Tcehm9260-50-74 00:17:28 Test Item Value Reference Range Interpretation [...] g/dL 1-2 Lipemia) Complete Blood Count with Iriepbitooej5276-36-89 23:26:28 Test Item Value Reference Range Interpretation [...] code = IPF) 0 % N Automated Udssgujvwnib7853-44-34 23:26:28 Test Item Value Reference Range Interpretation Comments Neutro Auto (test code = Neutro 67.1 % 36.0-70.0 Auto) Lymph Auto (test code = Lymph Auto) 23.3 % 12.0-44.0 Fillmore Auto (test code = Fillmore Auto) 5.8 % 0.0-11.0 Eos, Auto (test code = Eos, Auto) 2.3 % 0.0-7.0 Basophil Auto (test code = Basophil 0.8 % 0.0-2.0 Auto) Neutro Absolute (test code = Neutro 6.0 x10 1.6-7.4 Absolute) Lymph Absolute (test code = Lymph 2.10 x10 .50-4.60 Absolute) Fill[place] Absolute (test code = Fillmore .52 x10 .00-1.20 Absolute) Eos Absolute (test code = Eos 0.21 x10 0.00-0.74 Absolute) Baso Absolute (test code = Baso 0.07 x10 0.00-0.21 Absolute) IG [id number] 23:26:28 Test Item Value Reference Range Interpretation Comments IG (test code = IG) 0.7 % 0.0-5.0 IG Abs (test code = IG Abs) 0 x10 N HERPES VIRUS ANTIBODY, [id number] 21:46:00 Test Item Value Reference Range Interpretation Comments HERPES VIRUS IGM (BEAKER) Negative SE E ATTACHMENT (test code = 1808) BLOOD [id number] 06:00:00 Test Item Value Reference Range Interpretation Comments CULTURE (BEAKER) (test No growth in 5 days code = 1095) BLOOD [id number] 06:00:00 Test Item Value Reference Range Interpretation Comments CULTURE (BEAKER) (test No growth in 5 days code = 1095) POCT-GLUCOSE [id number] 12:11:00 Test Item Value Reference Range Interpretation Comments POC-GLUCOSE METER 154 mg/dL 70-110 H TESTED AT [place] [address] (BEAKER) (test code = [facility] 1538) [address] POCT-GLUCOSE [id number] 07:53:00 Test Item Value Reference Range Interpretation Comments POC-GLUCOSE METER 87 mg/dL 70-110 TESTED AT [place] [id number] (BEAKER) (test code = [facility] [id number] 1538) POCT-GLUCOSE [id number] 06:49:00 Test Item Value Reference Range Interpretation Comments POC-GLUCOSE METER 79 mg/dL 70-110 TESTED AT [place] [address] (BEAKER) (test code = [facility] [address] 1538) COMPREHENSIVE METABOLIC [id number] 06:15:00 Test Item Value Reference Range Interpretation [...] S NOT APPLICABLE FOR DIALYSIS PATIEN TS. [id number] 06:11:00 Test Item Value Reference Range Interpretation Comments MAGNESIUM (BEAKER) (test code = 2.1 mg/dL 1.6-2.6 627) HEPATIC FUNCTION [id number] 06:11:00 Test Item Value Reference Range Interpretation [...] code = 513 U/L 6-55 H 347) [id number] 05:30:00 Test Item Value Reference Range Interpretation Comments FIBRINOGEN LEVEL (BEAKER) (test 368 mg/dl 225-434 code = 658) [id number] 05:30:00 Test Item Value Reference Range Interpretation Comments PARTIAL THROMBOPLASTIN TIME 42.2 seconds 22.5-36.0 H (BEAKER) (test code = 760) PROTHROMBIN TIME/[id number] 05:29:00 Test Item Value Reference Range Interpretation Comments PROTIME (BEAKER) (test code = 14.8 seconds 11.7-14.7 H 759) INR (BEAKER) (test code = 370) 1.2 <=5.9 RECOMMENDED COUMADIN/WARFARIN INR THERAPY RANGESSTANDARD DOSE: 2.0 - 3.0 Includes: PROPHYLAXIS forvenous thrombosis, systemic embolization; TREATMENT for venous thrombosis and/or pulmonary embolus.HIGH RISK: Target INR is 2.5-3.5 for patients with mechanical heart valves.POCT-GLUCOSE [id number] 21:09:00 Test Item Value Reference Range Interpretation Comments POC-GLUCOSE METER 178 mg/dL 70-110 H TESTED AT [place] [address] ([facility]) (test code = [place] 1538) [address] POCT-GLUCOSE [id number] 17:18:00 Test Item Value Reference Range Interpretation Comments POC-GLUCOSE METER 178 mg/dL 70-110 H TESTED AT [place] [address] ([facility]) (test code = [place] 1538) [address] POCT-GLUCOSE [id number] 13:48:00 Test Item Value Reference Range Interpretation Comments POC-GLUCOSE METER 150 mg/dL 70-110 H TESTED AT [place] [address] ([facility]) (test code = [facility] 1538) [address] FACTOR 5 ACTIVITY (BLEEDING RISK)2017-01-06 10:04:00 Test Item Value Reference Range Interpretation Comments FACTOR V ACTIVITY (BEAKER) (test code 90.0 % 60.0-150.0 = 665) Effective 10/24/2013: Reference Range Change-Adult onlyNew: 60.0-150.0 Previous: 50.0-150.0CYTOMEGALOVIRUS ANTIBODY, [id number] 09:42:00 Test Item Value Reference Range Interpretation Comments CYTOMEGALOVIRUS IGM ANTIBODY Negative ([facility]) (test code = 816) HERPES VIRUS ANTIBODY, [id number] 08:59:00 Test Item Value Reference Range Interpretation Comments 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) (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 G 1807) CYTOMEGALOVIRUS ANTIBODY, [id number] 08:59:00 Test Item Value Reference Range Interpretation Comments CYTOMEGALOVIRUS IGG ANTIBODY Positive (BEAKER) (test code = 790) EBV-VCA ANTIBODY, [id number] 08:59:00 Test Item Value Reference Range Interpretation Comments JASE-WALL VCA IGG (BEAKER) (test Positive code = 983) EBV-VCA ANTIBODY, [id number] 08:59:00 Test Item Value Reference Range Interpretation Comments JASE-WALL VCA IGM (BEAKER) (test Negative code = 984) POCT-GLUCOSE [id number] 07:59:00 Test Item Value Reference Range Interpretation Comments POC-GLUCOSE METER 81 mg/dL 70-110 TESTED AT [place] [address] ([facility]) (test code = [place] [address] 1538) COMPREHENSIVE METABOLIC [id number] 06:23:00 Test Item Value Reference Range Interpretation [...] S NOT APPLICABLE FOR DIALYSIS PATIEN TS. [id number] 06:17:00 Test Item Value Reference Range Interpretation Comments MAGNESIUM (BEAKER) (test code = 1.8 mg/dL 1.6-2.6 627) HEPATIC FUNCTION [id number] 06:17:00 Test Item Value Reference Range Interpretation [...] code = 779 U/L 6-55 H 347) [id number] 06:00:00 Test Item Value Reference Range Interpretation Comments FIBRINOGEN LEVEL (BEAKER) (test 390 mg/dl 225-434 code = 658) [id number] 06:00:00 Test Item Value Reference Range Interpretation Comments PARTIAL THROMBOPLASTIN TIME 40.2 seconds 22.5-36.0 H (BEAKER) (test code = 760) PROTHROMBIN TIME/[id number] 05:59:00 Test Item Value Reference Range Interpretation Comments PROTIME (BEAKER) (test code = 14.6 seconds 11.7-14.7 759) INR (BEAKER) (test code = 370) 1.2 <=5.9 RECOMMENDED COUMADIN/WARFARIN INR THERAPY RANGESSTANDARD DOSE: 2.0 - 3.0 Includes: PROPHYLAXIS forvenous thrombosis, systemic embolization; TREATMENT for venous thrombosis and/or pulmonary embolus.HIGH RISK: Target INR is 2.5-3.5 for patients with mechanical heart valves.POCT-GLUCOSE [id number] 21:46:00 Test Item Value Reference Range Interpretation Comments POC-GLUCOSE METER 153 mg/dL 70-110 H TESTED AT [place] [address] ([facility]) (test code = [place] 1538) [address] POCT-GLUCOSE [id number] 18:47:00 Test Item Value Reference Range Interpretation Comments POC-GLUCOSE METER 181 mg/dL 70-110 H TESTED AT [place] [address] ([facility]) (test code = [place] 1538) [address] POCT-GLUCOSE [id number] 12:40:00 Test Item Value Reference Range Interpretation Comments POC-GLUCOSE METER 178 mg/dL 70-110 H TESTED AT [facility] 6720 (BEAKER) (test code = [place] 1538) [address] POCT-GLUCOSE [id number] 07:51:00 Test Item Value Reference Range Interpretation Comments POC-GLUCOSE METER 166 mg/dL 70-110 H TESTED AT [facility] 67[address] (BEAKER) (test code = [place] 1538) [address] COMPREHENSIVE METABOLIC [id number] 03:26:00 Test Item Value Reference Range Interpretation [...] S NOT APPLICABLE FOR DIALYSIS PATIEN TS. [id number] 03:22:00 Test Item Value Reference Range Interpretation Comments MAGNESIUM (BEAKER) (test code = 1.4 mg/dL 1.6-2.6 L 627) HEPATIC FUNCTION [id number] 03:22:00 Test Item Value Reference Range Interpretation [...] code = 1009 U/L 6-55 H 347) [id number] 03:12:00 Test Item Value Reference Range Interpretation Comments AMMONIA (BEAKER) (test code = 348) 29 mol/L 18-72 [id number] 03:10:00 Test Item Value Reference Range Interpretation Comments PARTIAL THROMBOPLASTIN TIME 42.3 seconds 22.5-36.0 H (BEAKER) (test code = 760) PROTHROMBIN TIME/[id number] 03:09:00 Test Item Value Reference Range Interpretation Comments PROTIME (BEAKER) (test code = 16.4 seconds 11.7-14.7 H 759) INR (BEAKER) (test code = 370) 1.3 <=5.9 RECOMMENDED COUMADIN/WARFARIN INR THERAPY RANGESSTANDARD DOSE: 2.0 - 3.0 Includes: PROPHYLAXIS forvenous thrombosis, systemic embolization; TREATMENT for venous thrombosis and/or pulmonary embolus.HIGH RISK: Target INR is 2.5-3.5 for patients with mechanical heart valves.[id number] 03:09:00 Test Item Value Reference Range Interpretation Comments FIBRINOGEN LEVEL (BEAKER) (test 413 mg/dl 225-434 code = 658) CBC W/PLT COUNT & AUTO [id number] 03:09:00 Test Item Value Reference Range Interpretation [...] L 0.00-0.20 (test code = 417) 0.00POCT-GLUCOSE [id number] 22:33:00 Test Item Value Reference Range Interpretation Comments POC-GLUCOSE METER 230 mg/dL 70-110 H TESTED AT [facility] 67[address] (BEAKER) (test code = [place] 1538) [address] POCT-GLUCOSE [id number] 18:17:00 Test Item Value Reference Range Interpretation Comments POC-GLUCOSE METER 222 mg/dL 70-110 H TESTED AT [facility] 67[address] (BEAKER) (test code = [place] 1538) [address] COMPREHENSIVE METABOLIC [id number] 16:59:00 Test Item Value Reference Range Interpretation [...] PATIEN TS. PERIPHERAL BLOOD SMEAR - PATHOLOGIST [id number] 15:30:00 Test Item Value Reference Range Interpretation Comments RBC MORPHOLOGY Polychromasia ([facility]) (test code = 2846) RBC MORPHOLOGY Anisocytosis (BEAKER) (test code = 08623) PERIPHERAL SMR REVIEW Cell counts confirmed ([facility]) (test code = 3883) [id number] Josefina Lara M.D. ([facility]) (test code = (electronic signature) 1596) PROTHROMBIN TIME/[id number] 15:12:00 Test Item Value Reference Range Interpretation Comments PROTIME ([facility]) (test code = 16.6 seconds 11.7-14.7 H 759) INR ([facility]) (test code = 370) 1.4 <=5.9 RECOMMENDED COUMADIN/WARFARIN INR THERAPY RANGESSTANDARD DOSE: 2.0 - 3.0 Includes: PROPHYLAXIS forvenous thrombosis, systemic embolization; TREATMENT for venous thrombosis and/or pulmonary embolus.HIGH RISK: Target INR is 2.5-3.5 for patients with mechanical heart valves.ANTI-NUCLEAR ANTIBODY (IVETTE)2017-01-04 14:32:00 Test Item Value Reference Range Interpretation Comments ANTI-NUCLEAR ANTIBODY (IVETTE) ([facility]) Negative Negative (test code = 418) POCT-GLUCOSE [id number] 12:47:00 Test Item Value Reference Range Interpretation Comments POC-GLUCOSE METER 212 mg/dL 70-110 H TESTED AT [facility] [address] ([facility]) (test code = [place] [facility] 1538) [address] [id number] 12:34:00 Test Item Value Reference Range Interpretation Comments RPR SCREEN ([facility]) (test code = Nonreactive Nonreactive 420) CLOSTRIDIUM DIFFICILE TOXIN [id number] 10:12:00 Test Item Value Reference Range Interpretation Comments CLOSTRIDIUM DIFFICILE TOXIN, PCR Not Detected Not Detected ([facility]) (test code = 1525) This qualitative real-time [...] Reference Range Change-Adult onlyNew: 60.0-150.0 Previous: 50.0-150.0POCT-GLUCOSE [id number] 06:40:00 Test Item Value Reference Range Interpretation Comments POC-GLUCOSE METER 167 mg/dL 70-110 H TESTED AT [facility] [address] ([facility]) (test code = [place] 1538) [address] COMPREHENSIVE METABOLIC [id number] 04:08:00 Test Item Value Reference Range Interpretation [...] ESTIM ATED GFR. Specimen slightly ictericHEPATIC FUNCTION [id number] 04:06:00 Test Item Value Reference Range Interpretation [...] 1091 U/L 6-55 H 347) Specimen slightly lgnjcgkBOIDCTMKRU2908-04-82 04:01:00 Test Item Value Reference Range Interpretation Comments FIBRINOGEN LEVEL (BEAKER) (test 379 mg/dl 225-434 code = 658) [id number] 04:01:00 Test Item Value Reference Range Interpretation Comments PARTIAL THROMBOPLASTIN TIME 40.7 seconds 22.5-36.0 H (BEAKER) (test code = 760) PROTHROMBIN TIME/[id number] 04:00:00 Test Item Value Reference Range Interpretation [...] L 0.00-0.20 (test code = 417) 0.00POCT-GLUCOSE [id number] 00:19:00 Test Item Value Reference Range Interpretation Comments POC-GLUCOSE METER 159 mg/dL 70-110 H TESTED AT [place] [address] ([facility]) [facility] 1538) [address] POCT-GLUCOSE [id number] 18:56:00 Test Item Value Reference Range Interpretation Comments POC-GLUCOSE METER 192 mg/dL 70-110 H TESTED AT [place] [address] ([facility]) (test code = [facility] Eduin [facility] 1538) [address] COMPREHENSIVE METABOLIC [id number] 16:55:00 Test Item Value Reference Range Interpretation [...] CALCULATE ESTIM ATED GFR. Specimen slightly ictericPROTHROMBIN TIME/[id number] 16:37:00 Test Item Value Reference Range Interpretation Comments PROTIME (BEAKER) (test code = 20.9 seconds 11.7-14.7 H 759) INR (BEAKER) (test code = 370) 1.8 <=5.9 RECOMMENDED COUMADIN/WARFARIN INR THERAPY RANGESSTANDARD DOSE: 2.0 - 3.0 Includes: PROPHYLAXIS forvenous thrombosis, systemic embolization; TREATMENT for venous thrombosis and/or pulmonary embolus.HIGH RISK: Target INR is 2.5-3.5 for patients with mechanical heart valves.HEPATITIS B SURFACE [id number] 14:05:00 Test Item Value Reference Range Interpretation Comments HEPATITIS B SURFACE ANTIBODY < mIU/mL <8.0 (BEAKER) (test code = 647) HEPATITIS B CORE ANTIBODY, [id number] 13:43:00 Test Item Value Reference Range Interpretation Comments HEPATITIS B CORE TOTAL ANTIBODY Nonreactive Nonreactive (BEAKER) (test code = 497) BLOOD GAS, [id number] 13:35:00 Test Item Value Reference Range Interpretation [...] code = 1819) 28.0 % URINALYSIS W/ [id number] 13:16:00 Test Item Value Reference Range Interpretation [...] 1584) SOURCE(BEAKER) (test code = Urine, [place] 7452) VITAMIN D, 66-[id number] 13:14:00 Test Item Value Reference Range Interpretation Comments VITAMIN D 25-OH (BEAKER) (test code = < ng/mL 13.0-47.8 L 2764) ALPHA FETOPROTEIN (AFP), TUMOR [id number] 13:06:00 Test Item Value Reference Range Interpretation Comments ALPHA-FETOPROTEIN (BEAKER) (test code < ng/mL <10.0 = 1094) Effective 05/08/2014: Reference Range ChangeNew: <10.0 Previous: 0.0-8.0 HEMOGLOBIN [id number] 13:05:00 Test Item Value Reference Range Interpretation Comments HEMOGLOBIN A1C (BEAKER) (test code = 7.6 % 4.3-6.1 H 368) CARCINOEMBRYONIC ANTIGEN (CEA)2017-01-03 12:59:00 Test Item Value Reference Range Interpretation Comments CARCINOEMBRYONIC ANTIGEN (BEAKER) 2.0 ng/mL 0.0-5.0 (test code = 685) [id number] 12:59:00 Test Item Value Reference Range Interpretation Comments FERRITIN (BEAKER) (test code = 1841 ng/mL 5-275 H 361) Effective 05/08/2014: Reference Range ChangeNew: Male 5-275 Previous: Male 22-322 Female 5-275 Female [id number] 12:58:00 Test Item Value Reference Range Interpretation Comments T4 TOTAL (BEAKER) (test code = 895) 4.5 ug/dL 4.9-11.7 L [id number] 12:58:00 Test Item Value Reference Range Interpretation Comments THYROID STIMULATING HORMONE 1.79 uIU/mL 0.35-4.94 (BEAKER) (test code = 772) [id number] 12:58:00 Test Item Value Reference Range Interpretation Comments T3 TOTAL (BEAKER) (test code = 656) 34 ng/dL 48-159 L Effective 05/08/2014: Reference Range ChangeNew: 48-159 Previous: 60-181 CALCIUM, [id number] 12:47:00 Test Item Value Reference Range Interpretation Comments CALCIUM IONIZED (BEAKER) (test 1.05 mmol/L 1.12-1.27 L code = 698) PH, BLOOD (BEAKER) (test code = 7.43 1810) [id number] 12:42:00 Test Item Value Reference Range Interpretation [...] % 20-55 (test code = 2590) URIC [id number] 12:40:00 Test Item Value Reference Range Interpretation Comments URIC ACID (BEAKER) (test code = 16.0 mg/dL 2.6-7.2 H 773) Specimen slightly ictericLIPID [id number] 12:40:00 Test Item Value Reference Range Interpretation [...] 160-189 Very High >=190 Specimen slightly ictericBILIRUBIN, [id number] 12:40:00 Test Item Value Reference Range Interpretation Comments BILIRUBIN DIRECT (BEAKER) (test 2.4 mg/dL 0.1-0.5 H code = 706) GAMMA GLUTAMYL TRANSFERASE (GGT)2017-01-03 12:40:00 Test Item Value Reference Range Interpretation Comments GAMMA GLUTAMYL TRANSFERASE (BEAKER) 53 U/L 9-64 (test code = 364) Specimen slightly [id number] 12:39:00 Test Item Value Reference Range Interpretation Comments ETHANOL (BEAKER) (test code = 400) < mg/dL <=10 SCREEN, [id number] 12:36:00 Test Item Value Reference Range Interpretation Comments TEST URINE (BEAKER) (test Negative code = 583) POCT-GLUCOSE [id number] 12:34:00 Test Item Value Reference Range Interpretation Comments POC-GLUCOSE METER 189 mg/dL 70-110 H TESTED AT [facility] 67[address] (BEAKER) (test code = [place] 1538) [address] HIV-1 ANTIGEN WITH HIV-1/2 [id number] 11:58:00 Test Item Value Reference Range Interpretation Comments HIV-1 ANTIGEN WITH HIV 1\\T\\2 Nonreactive Nonreactive ANTIBODY (2) (BEAKER) (test code = 2586) TROPONIN [id number] 09:44:00 Test Item Value Reference Range Interpretation [...] Previous: 0.0-4.9CK-MB Reference Range:<6.7 Normal6.7-10.0 Borderline>10.0 AbnormalACETAMINOPHEN [id number] 08:31:00 Test Item Value Reference Range Interpretation Comments ACETAMINOPHEN LEVEL (BEAKER) (test < ug/mL 10.0-30.0 L code = 344) TROPONIN [id number] 05:53:00 Test Item Value Reference Range Interpretation [...] acute neurological disease, and persistent tachyarrhythmia.BASIC METABOLIC [id number] 05:53:00 Test Item Value Reference Range Interpretation [...] TO CALCULA TE ESTIMATED GFR. Specimen slightly rashwetTUOAOAJIUQ2115-00-86 05:52:00 Test Item Value Reference Range Interpretation Comments PHOSPHORUS (BEAKER) (test code = 5.7 mg/dL 2.3-4.7 H 604) HEPATIC FUNCTION [id number] 05:52:00 Test Item Value Reference Range Interpretation [...] Specimen slightly ictericCREATINE KINASE (CK), TOTAL AND [id number] 05:52:00 Test Item Value Reference Range Interpretation Comments CREATINE KINASE TOTAL (BEAKER) 341 U/L 29-200 H (test code = 380) CREATINE KINASE-MB (BEAKER) (test 5.4 ng/mL 0.0-6.6 code = 750) CREATINE KINASE-MB INDEX (BEAKER) 1.6 % (test code = 395) Effective 05/08/2014: CK-MB Reference Range ChangeNew: 0.0-6.6 Previous: 0.0-4.9CK-MB Reference Range:<6.7 Normal6.7-10.0 Borderline>10.0 AbnormalCBC W/PLT COUNT & AUTO [id number] 05:48:00 Test Item Value Reference Range Interpretation [...] K/ L 0.00-0.20 (test code = 417) 0.17TJQXPAJJGR4442-65-78 05:09:00 Test Item Value Reference Range Interpretation Comments FIBRINOGEN LEVEL (BEAKER) (test 427 mg/dl 225-434 code = 658) [id number] 05:09:00 Test Item Value Reference Range Interpretation Comments PARTIAL THROMBOPLASTIN TIME 36.2 seconds 22.5-36.0 H (BEAKER) (test code = 760) PROTHROMBIN TIME/[id number] 05:08:00 Test Item Value Reference Range Interpretation Comments PROTIME (BEAKER) (test code = 22.8 seconds 11.7-14.7 H 759) INR (BEAKER) (test code = 370) 2.0 <=5.9 RECOMMENDED COUMADIN/WARFARIN INR THERAPY RANGESSTANDARD DOSE: 2.0 - 3.0 Includes: PROPHYLAXIS forvenous thrombosis, systemic embolization; TREATMENT for venous thrombosis and/or pulmonary embolus.HIGH RISK: Target INR is 2.5-3.5 for patients with mechanical heart valves.HEPATITIS PANEL, [id number] 03:40:00 Test Item Value Reference Range Interpretation Comments HEPATITIS A IGM ANTIBODY (BEAKER) Nonreactive Nonreactive (test code = 498) HEPATITIS B CORE IGM ANTIBODY Nonreactive Nonreactive (BEAKER) (test code = 645) HEPATITIS C ANTIBODY (BEAKER) Nonreactive Nonreactive (test code = 367) HEPATITIS B SURFACE ANTIGEN (2) Nonreactive Nonreactive (BEAKER) (test code = 2585) CREATININE, RANDOM [id number] 03:18:00 Test Item Value Reference Range Interpretation Comments CREATININE URINE (BEAKER) (test 118.7 mg/dL code = 375) Reference Range: No NormalsSODIUM, RANDOM [id number] 03:18:00 Test Item Value Reference Range Interpretation Comments SODIUM URINE (BEAKER) (test code = 60 meq/L 243) Reference Range: No NormalsUREA NITROGEN, RANDOM [id number] 03:18:00 Test Item Value Reference Range Interpretation Comments UREA NITROGEN URINE (BEAKER) (test 303 mg/dL code = 538) Reference Range: No [id number] 03:07:00 Test Item Value Reference Range Interpretation Comments AMMONIA (BEAKER) (test code = 348) 48 mol/L 18-72 F-[id number] 02:57:00 Test Item Value Reference Range Interpretation [...] within 95-100% range. URINALYSIS W/ REFLEX URINE [id number] 02:53:00 Test Item Value Reference Range Interpretation [...] = 514) SOURCE(BEAKER) (test code = 2795) [id number] 02:49:00 Test Item Value Reference Range Interpretation Comments PARTIAL THROMBOPLASTIN TIME 39.4 seconds 22.5-36.0 H (BEAKER) (test code = 760) PROTHROMBIN TIME/[id number] 02:48:00 Test Item Value Reference Range Interpretation Comments PROTIME (BEAKER) (test code = 22.0 seconds 11.7-14.7 H 759) INR (BEAKER) (test code = 370) 1.9 <=5.9 RECOMMENDED COUMADIN/WARFARIN INR THERAPY RANGESSTANDARD DOSE: 2.0 - 3.0 Includes: PROPHYLAXIS forvenous thrombosis, systemic embolization; TREATMENT for venous thrombosis and/or pulmonary embolus.HIGH RISK: Target INR is 2.5-3.5 for patients with mechanical heart valves.[id number] 02:48:00 Test Item Value Reference Range Interpretation Comments FIBRINOGEN LEVEL (BEAKER) (test 421 mg/dl 225-434 code = 658) BLOOD GAS, [id number] 02:43:00 Test Item Value Reference Range Interpretation [...] 21.0 % CBC W/PLT COUNT & AUTO [id number] 02:43:00 Test Item Value Reference Range Interpretation [...] code = 417) 0.00LACTIC ACID, VENOUS, WHOLE [id number] 02:35:00 Test Item Value Reference Range Interpretation Comments LACTATE BLOOD VENOUS (2) (BEAKER) 0.8 mmol/L 0.5-2.2 (test code = 2872) Effective 10/23/2015: Units/Reference Range ChangeNew: 0.5-2.2 mmol/L Previous: 5-20 mg/dLSpecimen slightly dztinixBMSGKTVNQGXT0412-94-07 11:32:0014.6[facility] DhuqcbhQELQPTXHTAAV6379-82-16 11:32:0033[facility] RdcdkduUJZPWGXACBVV5173-14-95 11:32:008.3[facility] OllnizpQCWYJHHLYRIL3088-87-52 11:32:0081[facility] Vin MRHCPIDQYCML5567-34-39 11:32:001.95[facility] EnvpyrgBNQGILMKQKNY6937-02-36 11:32:0055[facility] HvehwnbEVJHFRANCJGM1456-53-68 11:32:0019[facility] KAYBJQRHCYGR4343-83-56 11:32:59249Vagacpgk ElandgjMYZLRTASWQOR6803-38-10 11:32:90839Qvachxua SaxqtauVHBFUDESOTWE0318-02-73 11:32:004.6[facility] ZLDDPKCVYT8906-11-70 11:32:0030.4[facility] ApgffrkBJTTRIUVPI6938-62-31 11:32:00 4.5[facility] BjybdrsJDYDLCPTQX2767-91-67 11:32:0013.7[facility] HermannHEMATOLOGY 2016-07-30 11:32:002.6[facility] EyramefCCCMRZEJJK4390-98-35 11:32:000.7[facility] HjmjjgcERHACBTPJC8854-73-99 11:32:000.7[facility] FdhmcwuYMWTOFWTFK9213-38-17 11:32:001.6[facility] SuvlsrzIXQQIKJHBL9873-50-81 11:32:000.2[facility] [place] UKPWYIXAEV2552-71-54 11:32:0050.7[facility] MbxsenlEJYEJIGYTN9902-42-96 11:32:00 28.1[facility] UeuduibREAYAYRMKX5419-69-25 11:32:003.39[facility] HermannHEMATOLOGY 2016-07-30 11:32:008.9[facility] DwcyngsJESCYAPDFL6226-28-73 11:32:005.1[facility] JrbislcHWVECYGUQS1593-54-72 11:32:0011.3[facility] QlfatbaTRCZOMUDSL8932-80-79 11:32:36294Soffraig EdmmwvoJDXGLPKAII5216-36-80 11:32:0031.8[facility] [place] DIGYICFLCL8762-55-28 11:32:0018.0[facility] ClwtjheIXSOJWZOIG3855-81-87 11:32:00 83.0[facility] ZbkyaqdIJSHYNOBAN8569-99-47 11:32:00 Test Item Value Reference Range Interpretation Comments MCH (test code = MCH) 26.4 pg 27.0-31.0 [facility] YovqqyoVJJIQNFIJZ6138-24-64 11:32:63149Kpglgsnn HermannIMMUNOLOGY 2016-07-30 11:32:00Negative *NA*(07/30/16 5:32 AM)[facility] HermannIMMUNOLOGY 2016-07-29 11:05:00Negative *NA*(07/29/16 5:05 AM)[facility]annIMMUNOLOGY 2016-07-29 11:05:0092[facility] HermannCHEM QYUSH3702-30-05 15:50:0025[facility] HermannCHEM OLQUX9552-26-60 15:50:0055[facility] HermannCHEM EXFCD3653-47-32 15:50:0023[facility] HermannCHEM WXLFY0599-03-27 15:50:07697Dvtpiyvg HermannCHEM MAENZ0852-36-90 15:50:13331Crlmtmzs HermannCHEM LSMQC8811-62-29 15:50:004.0 [facility] HermannCHEM GNVKW3481-77-67 15:50:79958Nvvualsj HermannCHEM PANEL 2016-07-28 15:50:0013.0[facility]annCHEM OODHZ7916-28-78 15:50:007.7[facility] HermannCHEM ZKBIW4562-70-14 15:50:002.49[facility] FkfnbugLYLBPWTICV6404-91-93 15:50:00 Test Item Value Reference Range Interpretation Comments PT (test code = PT) 14.8 s 12.0-14.7 [facility] IcrecrfRNDTQRSMFO8559-04-69 15:50:00 Test Item Value Reference Range Interpretation Comments PTT (test code = PTT) 40.8 s 22.9-35.8 [facility] GdtkpbeSRFQJFOVKJ1226-44-84 15:50:001.14[facility] HermannIMMUNOLOGY 2016-07-28 15:50:0094[facility] VvobitzYZJLZQROAE0662-45-03 10:35:001.7[facility] NddtaebGLKWOJWRRY5827-74-49 10:35:002.7[facility] UkhorpoLMPVEDUNLW8491-52-66 10:35:000.1[facility] EmvwsaoQZRTDGSAMU8360-57-43 10:35:000.7[facility] Vin JDQFPGWQEX2308-76-20 10:35:0051.3[facility] LrjrknpWFXVYOUHAK7367-72-30 10:35:00 31.6[facility] BcpglayXUEOHYLTMY5600-19-66 10:35:0014.1[facility] HermannHEMATOLOGY 2016-07-28 10:35:002.6[facility] XzgetvhWEQXZUYPCK9389-51-83 10:35:000.4[facility] UrtkcocSFBZWCPKKE6299-56-97 10:35:0029.3[facility] IqhgmfuDYYBFCIQOY6753-89-57 10:35:009.2[facility] WazgxksKNJKZURQLU7269-73-27 10:35:003.54[facility] YZORXHDGFW1062-26-10 10:35:005.3[facility] TtjutjzYRDHRWIXPV2224-36-10 10:35:0087 [facility] XtudkvcTAXCDXYRYW2363-95-47 10:35:0031.4[facility] HermannHEMATOLOGY 2016-07-28 10:35:0017.9[facility] WjprtkeVRDFZDXKTP9589-84-97 10:35:0010.9[facility] VvfsgdzBCYQGKOGCU6163-02-47 10:35:00 Test Item Value Reference Range Interpretation Comments MCH (test code = MCH) 26.0 pg 27.0-31.0 [facility] QvqnsurLVAUENUSHP4528-07-74 10:35:0082.8[facility] HermannIMMUNOLOGY 2016-07-28 10:35:00Negative *NA*(07/28/16 4:35 AM)[facility]ann[facility]ES 2016-07-27 10:22:37594Qazvuprh HermannCHEM JAUTY8720-53-84 10:22:007.8[facility]annCHEM FKHKO9079-15-44 10:22:0021[facility] HermannCHEM MRITE2744-89-33 10:22:27380Suhnigpz HermannCHEM TKJZO4059-92-40 10:22:003.8[facility]annCHEM ZZQBG7053-34-34 10:22:68636Nuafuahb HermannCHEM ZWIMO5591-91-57 10:22:000.4 [facility] NHQHQ7775-82-93 10:22:0074[facility]annCHEM PANEL 2016-07-27 10:22:0019[facility]annCHEM ABKDA7832-29-00 10:22:005.2[facility]annCHEM LWSMR3002-56-01 10:22:74927Vtqfsgfz HermannCHEM JVHJA7704-86-52 10:22:20892Aylyopok HermannCHEM NCYNM2585-82-18 10:22:001.8[facility] HermannCHEM MDRLN5896-04-59 10:22:0054[facility]annCHEM MUGMU5483-16-59 10:22:74126 [facility]annCHEM ORHSL8263-29-73 10:22:003.11[facility]annCHEM PANEL 2016-07-27 10:22:0017[facility]annCHEM ZWOSZ7065-77-97 10:22:0016.8[facility] HermannCHEM EEVOY6164-79-84 10:22:003.4[facility]annCHEM HDSEK6828-80-86 10:22:000.5[facility]annCHEM VICVL0691-66-27 10:22:002.0[facility] HermannCHEM EQYWW9127-56-07 10:22:003.7[facility] MdbhwtkPJUHAKHGIA5222-43-57 10:22:0017.7 [facility] FuxicalLKFEYIKNBQ6442-45-35 10:22:0032.9[facility] HermannHEMATOLOGY 2016-07-27 10:22:0025.4[facility] OpiyheuLMTKXKWZNY0502-23-75 10:22:00 Test Item Value Reference Range Interpretation Comments MCH (test code = MCH) 26.4 pg 27.0-31.0 [facility] YumaujgQSVSURSGZE4086-20-64 10:22:0080.3[facility] HermannHEMATOLOGY 2016-07-27 10:22:0011.4[facility] XbdiclrSDIXTWATFW6784-43-94 10:22:0074[facility] PoxspziZPNEIVGRSA1601-46-93 10:22:003.16[facility] ColxkahAYHXIAURPN2736-46-17 10:22:005.3[facility] SgxfkwuZXWZYXZITZ0291-54-50 10:22:008.4[facility] EXEGQRLULQ8457-01-17 10:22:0014.5[facility] SvjfqhhDWUMGOGEUB8831-49-32 10:22:00 29.8[facility] RrobapvJLKBCGFBGF5462-94-64 10:22:000.1[facility] HermannHEMATOLOGY 2016-07-27 10:22:000.8[facility] UtqhxzwOLBXNWWNJQ8402-31-80 10:22:002.9[facility] UjwnhedHEIUCTJDCP9012-37-79 10:22:001.6[facility] WmsazomSEGTUDWTPU2155-06-78 10:22:000.4[facility] RlazubrZQEXTDRNZN4419-53-13 10:22:001.2[facility] TMFHKXJTHT9909-78-78 10:22:0054.1[facility] HermannSPECIAL LILYXFUZC8852-05-96 10:22:008.9[facility] HermannCARDIAC ZEOFSWY4855-41-94 17:40:34848Qsylorxh [place] UURGPZFVIC5495-45-57 17:40:00Positive *ABN*(07/26/16 11:40 AM)[facility] [place] ZDBUTTBWGS0246-61-35 17:40:00<0.2[facility] TzllpqpOSTRMPEGXL9928-34-48 17:40:00<0.2[facility] TcrcjqnJRRAZYMCJR2529-15-65 17:40:00<0.2[facility] EscaacqHMLTBIUZXQ8850-55-38 17:40:00<0.2[facility] KhnfgfzAZOXRVEVLM7381-32-56 17:40:00Negative (07/26/16 11:40 AM)[facility] QrqhdrrJULDCDUPQD7204-47-86 17:40:00 1:40 *ABN*(07/26/16 11:40 AM)[facility]annURINE BEMS5422-21-73 17:40:0021 [facility] TuikgekTUYAOVAUCE4774-94-13 14:00:001.11[facility]annHEMATOLOGY 2016-07-26 14:00:00 Test Item Value Reference Range Interpretation Comments PT (test code = PT) 14.5 s 12.0-14.7 [facility] GomrxeoUTEPJMPNTA9827-60-91 14:00:00Negative *NA*(07/26/16 8:00 AM) [facility] WopwyliXIMCHGFICQ8876-04-16 14:00:00Negative *NA*(07/26/16 8:00 AM) [facility] KbdstktLTMDMXDXMU1576-78-43 14:00:00Negative *NA*(07/26/16 8:00 AM) [facility] GoisjksJVWSHTGEHC7055-27-76 14:00:00Negative *NA*(07/26/16 8:00 AM) [facility]annCHEM LIGUQ4942-20-19 10:42:0017Meksrinj HermannCHEM PANEL 2016-07-26 10:42:218500Zkpombsu HermannCHEM TVMLA7571-33-56 10:42:000.5[facility]annCHEM MFCQE2146-43-23 10:42:000.3[facility] HermannCHEM YIXGX5891-25-85 10:42:0079[facility] HermannCHEM CYADY6151-95-92 10:42:52891Nfwxbzvu HermannCHEM DQENM6754-02-01 10:42:005.5[facility] HermannCHEM SBAWT0338-30-78 10:42:003.7 [facility]annCHEM NQGZV4310-76-69 10:42:001.8[facility] HermannCHEM PANEL 2016-07-26 10:42:002.1[facility] KoqbwkmTSLZOSPMVB7449-69-21 10:42:00Present *ABN*(07/26/16 4:42 AM)[facility] CgjohjnTUSXDYISWW8320-87-16 10:42:001+ *ABN*(07/26/16 4:42 AM)[facility] UzwuhkjVZUYOEAEPQ3024-78-63 10:42:000.1[facility] BbcfirbPSDBRGBLVL8968-22-03 10:42:00Moderate *ABN*(07/26/16 4:42 AM)[facility] CrcytafMRZVZIHZDN0972-74-12 10:42:0042[facility]annURINE AND JMSYK7406-49-43 16:34:001[facility]annURINE AND EAIVS5733-20-34 16:34:004[facility] URINE AND YXNTG9015-24-33 16:34:00Negative (07/25/16 10:34 AM)[facility] [place] URINE AND UWVGI7083-86-52 16:34:00Negative (07/25/16 10:34 AM)[facility] URINE AND KSBCU7774-41-71 16:34:002[facility]URINE AND MOOXO9801-44-70 16:34:006[facility]annUR[facility] AND WJAMG5344-81-67 16:34:002.0[facility] [place] URINE AND QTRUS3703-40-26 16:34:00Negative (07/25/16 10:34 AM)[facility] URINE AND ELNRW6424-61-33 16:34:00Negative *NA*(07/25/16 10:34 AM)[facility] URINE AND YAZCT2265-75-24 16:34:001.012[facility]annURINE AND QEXSS3044-46-72 16:34:005.5[facility]annUR[facility] AND CPNAC5033-40-81 16:34:00Slight *ABN*(07/25/16 10:34 AM)[facility] AND TQEZJ1402-69-30 16:34:00Dark Yellow *NA*(07/25/16 10:34 AM)[facility] AND XCDLY4000-02-21 16:34:009 [facility]URINE EYMD3324-54-55 16:34:0030[facility] CHEM 2016-07-25 16:34:003.1[facility]annURINE VHFM3457-01-05 16:34:79230.9[facility]annUR[facility] LKNT0338-35-49 16:34:38364.00[facility] HermannCHEM CJBGH8527-06-57 08:55:002.0[facility] HermannCHEM LUAXC8582-06-28 08:55:005.2[facility] [place] CARDIAC UVUQFPT4170-14-99 17:29:000.28[facility] HermannCARDIAC JVMGUZY1116-05-29 17:29:165803Mpddwuzd HermannCARDIAC PFEZJWY4525-80-45 17:29:000.144[facility]annCARDIAC TOQQBQU9727-57-85 17:29:000.2[facility] HermannCARDIAC ENZYMES 2016-07-24 17:29:006.3[facility] HermannCARDIAC JXUTXRY2271-30-31 11:20:000.38 [facility]annCARDIAC MADIABY8766-47-21 11:20:000.173[facility]annCARDIAC DWEWYMZ5534-77-34 11:20:000.2[facility] HermannCARDIAC FQVDBFQ2613-61-86 11:20:00 5.6[facility] HermannCHEM VCBJK9796-07-00 11:20:005.5[facility] HermannCARDIAC BBUFCGN9511-85-25 06:18:79580Kkgsyjwp HermannCARDIAC CJXNBLL6829-36-89 04:59:27 0.57[facility]annCARDIAC VOKZBNX3062-67-72 10:22:04017Ckxpfknk HermannCHEM MZWMC1119-59-78 10:22:002.1[facility] HermannCHEM KDZBC9034-16-70 10:22:10128 [facility]annCHEM USFKX8330-20-35 10:22:0041[facility] HermannCHEM PANEL 2016-06-15 10:22:002.00[facility] HermannCHEM VCKSK2588-37-90 10:22:009.0[facility] HermannCHEM UAKBX8596-73-15 10:22:34093Dqahzgri HermannCHEM NMVYK3677-16-78 10:22:0033[facility] HermannCHEM UIAJG1401-54-84 10:22:07050Zlojrhft HermannCHEM EOIJC2278-98-98 10:22:004.0[facility] HermannCHEM TVBJY9037-16-78 10:22:0032 [facility] HermannCHEM SSYIN4479-73-13 10:22:0013.0[facility] HermannCHEM PANEL 2016-06-15 10:22:004.6[facility] CtcqznnIEJKTPYDMN4129-47-95 10:22:003.68[facility] RqnwydlKOVTSSMIFL1279-54-90 10:22:009.9[facility] FnssjseJDCGWZXTXV1495-77-18 10:22:00 Test Item Value Reference Range Interpretation Comments MCH (test code = MCH) 26.8 pg 27.0-31.0 [facility] SdlciqkJLFKFEJTPG2129-82-28 10:22:0034.2[facility] HermannHEMATOLOGY 2016-06-15 10:22:0078.3[facility] FdchczrBZYNXWMCEC1040-70-28 10:22:0028.8[facility] QahyhboTYZGQZIVMV4492-70-31 10:22:19451Fjlkthnz BbumhjlROIOIKZCWW2481-16-28 10:22:009.5[facility] RhzzvqlZNGPSLHALN9541-94-77 10:22:0015.3[facility] MTAIEYTCYR4861-44-00 10:22:005.6[facility] JsmrnwvUTMTWABDUG4518-85-47 10:22:000.5 [facility] DgllfnkPZWPWJYBZF9936-16-94 10:22:001+ *ABN*(06/15/16 4:22 AM)[facility] EmbmsxcVHBMNOXWBU0587-03-39 10:22:000.1[facility] VbchdieWCRATEZGNI9844-14-39 10:22:0033.5[facility] LzfqewfBKEVGUMORM3841-79-50 10:22:0047.6[facility] OVIPTCJQEL6982-68-64 10:22:008.4[facility] SycwkxeSFRCREQOLI6704-02-27 10:22:009.4 [facility] ZomirlpIKNRWYKXIJ0097-59-82 10:22:002.6[facility] HermannHEMATOLOGY 2016-06-15 10:22:001.9[facility] IguugrsIHWIMJGVJN9083-24-52 10:22:001.1[facility] CyfjwbsILOWCJDHCN6133-36-81 10:22:000.5[facility] HermannCHEM ULJVD2703-37-97 11:03:004.8[facility] HermannCHEM DIYLP2527-62-86 11:03:002.0[facility] HermannCHEM XJJWI3635-59-11 11:03:0032[facility] HermannCHEM GACOH8463-57-17 11:03:85080 [facility]annCHEM NIAMF2702-45-32 11:03:004.4[facility] HermannCHEM PANEL 2016-06-14 11:03:0037[facility] HermannCHEM DRKND3842-50-66 11:03:98238Uzxbcqhz HermannCHEM ZITGZ1903-09-17 11:03:002.00[facility] HermannCHEM GDGNF9720-64-39 11:03:64089Piccbeqw HermannCHEM TPJCT6256-85-67 11:03:008.7[facility] HermannCHEM SBNHB3777-61-11 11:03:0032[facility] HermannCHEM BTQZY4257-12-41 11:03:0013.4 [facility] VbjaqvkMDHJWFNTQS0616-54-82 11:03:0010.3[facility] HermannHEMATOLOGY 2016-06-14 11:03:000.1[facility] QmcppjsVNLTJJRQDF2151-56-06 11:03:000.5[facility] HdsqolaNMXKSEMOWD7337-09-20 11:03:000.5[facility] QctsfthUGODYGTOPL4454-97-30 11:03:002.1[facility] CbsybrkLSKRMQFLEL6412-11-23 11:03:001.2[facility] CGLMSUEJRB8442-15-11 11:03:001.9[facility] AhlpsuuGPISWYDVWO6022-88-80 11:03:00 42.5[facility] SuoymxyQJYIDYDUKK2535-84-10 11:03:0037.0[facility] HermannHEMATOLOGY 2016-06-14 11:03:009.0[facility] SnyvjmiQEMPAKCXXR5398-01-85 11:03:009.8[facility] QtpcewmAUJLZWCTAL8977-41-79 11:03:005.0[facility] SiinphyYWOGPIEAWQ9117-10-51 11:03:003.57[facility] JozwkncDAVDPZWUPJ6300-02-38 11:03:009.4[facility] [place] VYAVNZFFBC7006-12-86 11:03:0028.5[facility] HrytuviIWDYZWBGSO1269-90-35 11:03:00 183[facility] CmebrkhTXEFGPQBVC5721-30-02 11:03:0079.9[facility] HermannHEMATOLOGY 2016-06-14 11:03:00 Test Item Value Reference Range Interpretation Comments MCH (test code = MCH) 26.3 pg 27.0-31.0 [facility] LtmzyiqUEDHMMXAJO8732-04-15 11:03:0033.0[facility] HermannHEMATOLOGY 2016-06-14 11:03:0015.9[facility]annURINE JRQZ9323-50-67 10:26:006.9[facility]annURINE WCYI7930-55-04 10:26:0019.30[facility]annURINE KZYI4070-95-44 10:26:82605.1[facility] BfnsnlmKEVVQHMDHY5763-77-51 09:20:009.7[facility] IXGVJEJTSC7182-53-07 09:20:29561Evtpqcee BjwalyxNSNAWIPODP7140-39-29 09:20:00 15.9[facility] DqopokzLBBASBMCPD3919-22-20 09:20:0079.3[facility] HermannHEMATOLOGY 2016-06-13 09:20:0033.0[facility] QamvtajQMTUEYMQNK9084-81-67 09:20:00 Test Item Value Reference Range Interpretation Comments MCH (test code = MCH) 26.2 pg 27.0-31.0 [facility] KbigiavTYOEXSIRMI2505-21-12 09:20:0029.4[facility] HermannHEMATOLOGY 2016-06-13 09:20:009.7[facility] NvgyyfhTXFFLSGBDL6161-73-01 09:20:003.70[facility] XiqimsnGCQDMEHHNF1977-72-47 09:20:005.7[facility] VjfjofxIYTQPAYZTW4858-87-46 09:20:000.1[facility] AbztscbRFWFAJUTCI4923-49-48 09:20:002.2[facility] [place] FMXAUYJXBM6395-34-14 09:20:000.5[facility] RaziqpqNRGZIVFAYQ6489-28-00 09:20:000.5 [facility] ZthrpyiCLOQWXGKFD2104-63-49 09:20:001.1[facility] HermannHEMATOLOGY 2016-06-13 09:20:002.3[facility] ZqwiztgABVANHATJC6910-32-63 09:20:009.5[facility] ZuacfxwXYMOUUTBTI9905-54-71 09:20:009.0[facility] QcqagrwTTUKJWUFHB4618-66-85 09:20:0038.9[facility] LmhyamlXOBQGKWAFE1188-71-16 09:20:0041.5[facility] [place] CHEM APPJU3461-34-13 06:34:001.7[facility] HermannCHEM JOPRQ5612-25-60 06:34:004.2 [facility] UevhyibVGRFDNZABVZF4334-61-90 06:34:0014.3[facility] HermannELECTROLYTES 2016-06-13 06:34:0041[facility] NtxfqymHPBIDMLOKLFV5350-57-21 06:34:29022Hlisktaq KsiytqnZONXEGPUXICW5553-06-54 06:34:008.5[facility] FtemtaaHTTPQOSTZYGQ5313-86-85 06:34:0032[facility] GydjfedWXDLDOWEBSSH2028-40-11 06:34:90053Uswzguee [place] KHECXFSVDSDB9187-26-41 06:34:0037[facility] AppsdbaOZDPNJTORJLL3110-95-72 06:34:00 1.63[facility] VmvzplxPRYBWAHAFULH0878-28-69 06:34:004.3[facility] PKYPHZCFSXRI2606-91-33 06:34:63110Sdsjwdft HermannCHEM PMAJQ0978-22-08 16:21:00 48.0[facility] TogzpulDWQJCPBCRD1744-93-03 14:56:001:40 *ABN*(06/11/16 8:56 AM) [facility] SizstwxKQCJEOVBET9843-46-98 14:56:00Negative *NA*(06/11/16 8:56 AM) [facility] CdftxvtZIISRLWXTQ8887-49-90 14:56:00Negative *NA*(06/11/16 8:56 AM) [facility] XcpfhjxTQHQBEWOAZ5148-57-81 14:56:00Negative *NA*(06/11/16 8:56 AM) [facility] OaspvarCQKUKWCJQA4457-82-53 14:56:00Negative *NA*(06/11/16 8:56 AM) [facility] NubdxgiUAYZCJVIVD3443-00-25 14:56:00Negative *NA*(06/11/16 8:56 AM) [facility] XmxjudeRNGXMXLIBE0790-42-44 14:56:00Positive *ABN*(06/11/16 8:56 AM) [facility]annCHEM VRGPV8523-47-88 10:42:000.1[facility] HermannCHEM PANEL 2016-06-11 10:42:005.2[facility] HermannCHEM BAUFY0521-72-29 10:42:001.6[facility] HermannCHEM SKPLD8734-48-44 10:42:0020[facility] HermannCHEM APOCX8978-24-12 10:42:003.6[facility] HermannCHEM BGGNL9854-07-98 10:42:000.4[facility] HermannCHEM PRSGL4247-52-71 10:42:0074[facility] HermannCHEM WSRWN7441-87-00 10:42:0014 [facility]annCHEM JZCLR8374-05-36 10:42:0013[facility] HermannHEMATOLOGY 2016-06-11 10:42:001.06[facility] LoujgheNLPKYTWTML1584-12-75 10:42:00 Test Item Value Reference Range Interpretation Comments PT (test code = PT) 14.0 s 12.0-14.7 [facility] DbtgvzdHDWDNTAKIZ2445-72-06 10:42:00 Test Item Value Reference Range Interpretation Comments PTT (test code = PTT) 36.4 s 22.9-35.8 [facility] HermannSPECIAL OUBTKEFVZ5169-65-18 10:42:0010.5[facility] HermannCARDIAC HDLKSLL7885-61-26 02:08:001.8[facility] HermannCARDIAC NSRPGWC5734-21-23 02:08:00 2.9[facility] HermannCARDIAC DQCXXFZ5951-28-12 02:08:000.061[facility] CARDIAC SYLTUKD2397-56-29 02:08:98314Xtmztzfs HermannCARDIAC VVPWRZW6896-29-39 02:08:00<0.02[facility] HermannCHEM BOTUW0377-97-80 02:08:000.2[facility] [place] CHEM ULKTY1194-82-33 02:08:000.1[facility] HermannCHEM FCXJX5130-94-82 02:08:000.1 [facility]annCHEM QPRUN7516-83-13 02:08:005.7[facility] HermannCHEM PANEL 2016-06-11 02:08:000.5[facility] HermannCHEM ONZWB3531-27-50 02:08:001.8[facility] HermannCHEM WZHFM3046-52-29 02:08:003.9[facility] HermannCHEM QTYUM0985-25-54 02:08:0099[facility] HermannCHEM HXOAH7541-62-38 02:08:0021[facility] HermannCHEM ZGXWF6924-71-44 02:08:0017[facility] HermannDRUG IWUAFN1287-26-14 02:08:00See Note *NA*(06/10/16 8:08 PM)[facility] HermannDRUG GXARMX3244-16-78 02:08:00Negative *NA*(06/10/16 8:08 PM)[facility] HermannDRUG FWRJMU0938-03-84 02:08:00Negative *NA*(06/10/16 8:08 PM)[facility] HermannDRUG MOXOQR9852-99-85 02:08:00Negative *NA*(06/10/16 8:08 PM)[facility] HermannDRUG PEEPZI9588-90-92 02:08:00Negative *NA*(06/10/16 8:08 PM)[facility] HermannDRUG NZSLRG5916-82-14 02:08:00Negative *NA*(06/10/16 8:08 PM)[facility] HermannDRUG EMIAUT2054-60-72 02:08:00Negative *NA*(06/10/16 8:08 PM)[facility] HermannDRUG LNXVCM6051-47-86 02:08:00Negative *NA*(06/10/16 8:08 PM)[facility] HermannDRUG CMARAA3057-14-91 02:08:00Negative *NA*(06/10/16 8:08 PM)[facility] HermannDRUG IGGCVX1530-05-88 02:08:00Negative *NA*(06/10/16 8:08 PM)[facility] EjckqqcPYJFZU4492-02-17 02:08:0075[facility] KpwkziaPXHGAE9818-70-41 02:08:0027[facility] WkcniztTGSGWG6459-41-47 02:08:28713 [facility] YpackzbOOUHRQ3569-09-08 02:08:96811Bjvirkps PtcqlvrTCLRWE2801-51-20 02:08:004.29[facility] QxdzoweQPKXGM5136-87-17 02:08:0031[facility]annURINE AND PCJSA6985-53-17 02:08:006.0[facility]annURINE AND XJYHV4924-82-28 02:08:00 Negative (06/10/16 8:08 PM)[facility]annURINE AND XDWIJ4354-43-41 02:08:00 Trace *ABN*(06/10/16 8:08 PM)[facility]annURINE AND JGNOU9130-15-75 02:08:00 Negative *NA*(06/10/16 8:08 PM)[facility]annURINE AND RHDAQ1384-37-90 02:08:004[facility]annURINE AND LMKKP8354-06-15 02:08:005[facility] [place] URINE AND QIFUX8054-09-60 02:08:00Small *ABN*(06/10/16 8:08 PM)[facility] URINE AND QICZI2827-43-22 02:08:001[facility]annURINE AND OMKZR9403-47-75 02:08:001.009[facility]annURINE AND KXWBZ0091-10-62 02:08:00Yellow *NA*(06/10/16 8:08 PM)[facility]annUR[facility] AND NTQSP7568-18-52 02:08:00Clear (06/10/16 8:08 PM)[facility]annURINE FQBU7929-01-36 02:08:00Negative (06/10/16 8:08 PM)[facility]annURINE PLRL4508-31-77 02:08:46074.4[facility]annURINE XZDH7453-96-82 02:08:005.4[facility]annURINE PUSJ3815-62-91 02:08:0069.80[facility] HermannCARDIAC GWEPPLQ2331-37-17 16:53:725435Ouqfpwur HermannCARDIAC YDODJYZ4420-60-11 16:53:00<0.02[facility] HermannCHEM PANEL 2014-06-26 13:02:000.9[facility] KovaavyFQTACOKUXZ5039-29-85 12:29:4410[facility] GbpotkyLNOHZDPWVCBEB5166-44-18 11:21:271[facility] HermannCHEM JJLVH2097-24-08 11:21:003.2[facility] HermannCHEM CZGRW4561-52-19 11:21:006.6[facility] HermannCHEM XDHPG9612-71-55 11:21:000.6[facility] HermannCHEM GCOUD3031-14-23 11:21:0059 [facility] HermannCHEM YHMAS4754-48-84 11:21:0011[facility] HermannCHEM PANEL 2014-06-26 11:21:0017[facility] HermannCHEM GYDCB4167-37-49 11:21:0099[facility] HermannCHEM NKTHM0708-62-85 11:21:07854Dmymwckr HermannCHEM LNDMR1943-11-40 11:21:003.4[facility] HermannCHEM SZQWX3190-98-67 11:21:0011[facility] HermannCHEM QRHHI6009-56-66 11:21:000.8[facility] HermannCHEM OIAKC6187-66-59 11:21:18664 [facility]annCHEM XRFGI5455-37-48 11:21:0094[facility] HermannCHEM PANEL 2014-06-26 11:21:009.1[facility] HermannCHEM QWRVP3758-60-19 11:21:0024[facility] HermannCHEM WLLTX0725-15-57 11:21:000.9[facility] HermannCHEM IFLMX6924-49-91 11:21:003.4[facility] HermannCHEM SNBUN2466-46-68 11:21:0014[facility] HermannCHEM ZCGAS0049-35-91 11:21:0019.4[facility] HermannCHEM SPYOP0681-17-91 11:21:0081 [facility] NbfbvtrVWIFRGCWET1535-33-49 11:21:000.0[facility] HermannHEMATOLOGY 2014-06-26 11:21:001+ *ABN*(06/26/14 5:21 AM)[facility] FtsbkjoLSDJUXQGCP9011-09-58 11:21:000.6[facility] FvgoenyVDMPLAOOTA0588-96-99 11:21:000.1[facility] EBONPSVQVM9658-63-04 11:21:002.5[facility] SrlcmqqVNIOACSQNZ5736-75-71 11:21:00 63.3[facility] VnknetjTVWJGBTGLA8545-45-94 11:21:005.6[facility] HermannHEMATOLOGY 2014-06-26 11:21:000.0[facility] DfobtoxUGVTWGZATL4763-52-92 11:21:000.9[facility] EibzuggNPUXKRBLPX3750-13-66 11:21:007.0[facility] JrjplwbHUUZDXVKVU4966-42-07 11:21:0028.8[facility] TvehhbqNSMJSKFPLI5918-38-95 11:21:008.8[facility] LVOQFVIPFY4171-24-87 11:21:005.19[facility] AqapgasBNDDNFUNOC5090-43-59 11:21:00 14.4[facility] WryedxkSJCTTOZRBN7456-42-17 11:21:0043.1[facility] HermannHEMATOLOGY 2014-06-26 11:21:0083.1[facility] NtionrzTCQIZQAYRF5311-45-04 11:21:00 Test Item Value Reference Range Interpretation Comments MCH (test code = MCH) 27.8 pg 27.0-31.0 [facility] ComtelbZBNXSLZKMV6093-95-83 11:21:0013.1[facility] HermannHEMATOLOGY 2014-06-26 11:21:0033.5[facility] MaggszgQHHPOUQXRM7371-53-50 11:21:34459Tqcbegfa KsvheiaHLCYVVFBDW4751-24-86 11:21:0010.4[facility] OhkzuraTADPIWJKXN1104-59-36 04:48:55Performed (04/14/2013 23:48:55)[facility] QiauttkMEEKLGKWTB8620-98-53 04:48:55Negative *NA*(04/14/2013 23:48:55)[facility] FoywylnXQDUAJCHQK2331-33-75 04:48:55Trace *ABN*(04/14/2013 23:48:55)[facility] MgjmqohDVOKUSHUXT1677-01-71 04:48:55Negative (04/14/2013 23:48:55)[facility] GgebuniSUCMVSGTOI6572-06-72 04:48:550.2[facility] TjsasrsGIVDDLIYRS2027-87-89 04:48:55Negative (04/14/2013 23:48:55)[facility] VyfttxpYMZYBTLGVQ9063-86-76 04:48:55Negative (04/14/2013 23:48:55)[facility] PxoqnskUAORTEBFLU6453-89-22 04:48:55Clear (04/14/2013 23:48:55)[facility] WjmkscuKUWUGGYVWR6873-53-63 04:48:55Yellow *NA*(04/14/2013 23:48:55)[facility] RjnbzxqDWHTUSTHOY0113-87-37 04:48:55 Test Item Value Reference Range Interpretation Comments UA pH (test code = UA pH) 7.0 1 5.0-8.0 N [facility] TapkuykQWXRBCZXFN3998-23-78 04:48:55 Test Item Value Reference Range Interpretation Comments UA Spec Grav (test code = UA Spec 1.025 1 N Grav) [facility] DlijqwhTUGEBDTKLB6246-46-80 04:48:55Trace *ABN*(04/14/2013 23:48:55) [facility] SpdkcnmEPPOYQUWX2120-13-08 04:28:00Negative *NA*(04/14/2013 23:28:00) [facility] FnnmluvNFAKHKBCW2707-79-97 04:28:84647Icliixjm HermannCHEMISTRY 2013-04-15 04:28:004.1[facility] LyimbvgQNBGIISOE2278-62-42 04:28:0010.5[facility] XyoraouAYBHKDIGU0396-13-24 04:28:006[facility] GlcbfvbIYBXDCDGB5410-76-09 04:28:00 0.7[facility] MbgumvlPKIXLCUDR6411-76-97 04:28:44940Ihvcpxmn HermannCHEMISTRY 2013-04-15 04:28:002.9[facility] DumxbgtKSHWPFDVT8415-29-65 04:28:0020[facility] HtjhuimWGEVPRVXJ0774-46-86 04:28:000.5[facility] UusacbyJNQRFONMD4214-72-65 04:28:0089[facility] WhhsgcfTWKCLNALV2370-60-83 04:28:0011[facility] UUWOBVGZY3090-01-10 04:28:000.5[facility] TkqekvsYPSYJRBRQ3286-37-75 04:28:003 [facility] LrgmyecQHCMELFLU0999-83-71 04:28:17706Wjsnxtqe HermannCHEMISTRY 2013-04-15 04:28:007.0[facility] UbotlkqCAFWNENCW5543-82-65 04:28:008.7[facility] IsulkypGMTXPXTON4725-26-23 04:28:0029[facility] UadfrhdSGJEFXUCU1123-56-98 04:28:07825Qxinblif MzaehpnXILPYZZPP9407-78-14 04:28:003.5[facility] ABIJEQKQB3482-91-82 04:28:29064Gmuontch SlpwsfwCLFJTTOCKK7809-70-72 04:28:00 Test Item Value Reference Range Interpretation Comments PROTIME (test code = PROTIME) 12.1 s 12.0-14.7 [facility]ORTQTCTVHQ3752-74-72 04:28:00 Test Item Value Reference Range Interpretation Comments aPTT (test code = aPTT) 39.0 s 22.9-35.8 [facility] FjrvoryNXPZNIWVHP3066-17-63 04:28:000.90[facility]annHEMATOLOGY 2013-04-15 04:28:00 Test Item Value Reference Range Interpretation Comments MCH (test code = MCH) 29.4 pg 27.0-31.0 [facility] JjjioweSZBUPGHETG9378-97-11 04:28:0086.1[facility]annHEMATOLOGY 2013-04-15 04:28:0029.4[facility] PmjtezmDSWLOCBMCS9916-39-50 04:28:0014.0[facility] BkbveszVCUBVTWNJU2816-41-81 04:28:006.2[facility] YmbjrowJLBEGUNCWU4789-95-63 04:28:92656Bumwemud KhnasrbQMTXJXGSCF1129-67-72 04:28:0034.1[facility] VYFLMLUNYA8851-89-06 04:28:003.41[facility] JlmvsaqMFFPRTZOBM6655-12-61 04:28:00 10.0[facility] DzbeeuwFYONVBUSLJ4604-12-02 04:28:0010.1[facility]annHEMATOLOGY 2013-04-15 04:28:004.4[facility] QmrfhljHAEVGFDGMM6540-13-95 04:28:000.7[facility] IchzxzsDUATDASION2374-53-95 04:28:0070.7[facility] CuykiayRPEUWPFUHV1713-00-49 04:28:000.3[facility] MyfbwgyFKPHATUAOK2635-28-34 04:28:001.2[facility] Vin NEHOSXSRDD5223-81-31 04:28:004.5[facility] HtikpjbFACRMLPGAO4339-40-23 04:28:004.1 [facility] UzmhqwlGYARMDMSPD6904-68-64 04:28:0020.0[facility]annHEMATOLOGY 2013-04-15 04:28:000.0[facility] NtucrikFEQQOBPDCJ5512-47-57 04:28:000.3[facility] HermannBEDSIDE GLUCOSE CDDOEHW4486-74-61 01:12:94865Sntjehkr HermannURINALYSIS 2012-03-14 23:40:00Trace *ABN*(03/14/2012 18:40:00)[facility]annUR[facility] 2012-03-14 23:40:00 Test Item Value Reference Range Interpretation Comments UA pH (test code = UA pH) 6.0 1 5.0-8.0 N [facility] LjasaklMDHJRFYBOJ7757-48-25 23:40:00>=80 mg/dL *NA*(03/14/2012 18:40:00)[facility] RqxzpnvNUSCHRHIMH5711-21-17 23:40:00>=1000 mg/dL *ABN*(03/14/2012 18:40:00)[facility] DerpxyvLRHOJVVDGQ3779-37-83 23:40:00Negative (03/14/2012 18:40:00)[facility] SmmzfebMOEAVORDZY7828-27-00 23:40:00Negative (03/14/2012 18:40:00)[facility] PwwecjpMFQZMBWTSB6677-55-71 23:40:000.2[facility] HcvfcftDFZRZALUEC1539-31-90 23:40:00Negative (03/14/2012 18:40:00)[facility] CehfeweGOZSEBDGTZ9813-37-74 23:40:00Negative *NA*(03/14/2012 18:40:00)[facility] LhbsyzfDSLPCVGNZI1751-31-72 23:40:00Clear (03/14/2012 18:40:00)[facility] Vin APFCUYTZWI2325-28-75 23:40:00Yellow *NA*(03/14/2012 18:40:00)[facility] Vin APHXJBNNUN9774-31-47 23:40:00>=1.030 *ABN*(03/14/2012 18:40:00)[facility] WufyeffDHTIOWVNHW5702-02-21 23:40:00Occasional /LPF (03/14/2012 18:40:00) [facility] LfilhykIBHPDWTMTT2714-31-05 23:40:003-5 /HPF (03/14/2012 18:40:00) [facility] OlfpzqaERPIFNTVIE7031-16-11 23:40:00Occasional /HPF (03/14/2012 18:40:00)[facility] IefjailWUXWZHTIX5953-87-02 22:50:00Negative *NA*(03/14/2012 17:50:00)[facility] RnequgmWCDRMQCGT1170-70-88 22:50:0045[facility]annCHEMISTRY 2012-03-14 22:50:001.2[facility] ZdydavfPMGPTUPHS1024-27-39 22:50:003.8[facility] FwjosksRDSYAMGTJ8075-86-34 22:50:0021[facility] ZnzymvtFPMBLFAIW4154-22-28 22:50:0016.8[facility] CkqweihVSKBISLXI6302-27-36 22:50:001.1[facility] Vin OYECDIVCV2240-25-95 22:50:008.2[facility] ErfoczsVKMGRPVSY4237-49-04 22:50:003.8 [facility] JndezzfQOXFDYGVJ5625-52-96 22:50:000.7[facility] HermannCHEMISTRY 2012-03-14 22:50:88121Foucsjnm NetcuxxYPAMGDBUJ2297-92-23 22:50:0099[facility] NokyoaqQSPXWMNHL1591-14-58 22:50:0027[facility] ZfwuaphYEADZMXWK0804-63-93 22:50:71379Kindkace OwcicjzPQCNTHOGZ0880-44-92 22:50:0015[facility] FPFHVUMJW5424-08-71 22:50:0024[facility] YbwkktpJZTXEINLQ2355-35-98 22:50:0020 [facility] VizlqbgXBLJUBBFR4324-42-95 22:50:0067[facility]annCHEMISTRY 2012-03-14 22:50:004.4[facility] KgmnkunVLNQFAJCH4011-63-88 22:50:009.9[facility] IlacoqrQJAKLKZYXR9392-74-23 22:50:0011.8[facility] XscfrbzUFWKKYIBZT5057-81-23 22:50:0035.9[facility] SnbhuifKNHUOVJBLL2588-33-95 22:50:00 Test Item Value Reference Range Interpretation Comments MCH (test code = MCH) 31.2 pg 27.0-31.0 H [facility] SlijcoeWDOVTAZWLC2108-34-74 22:50:87153Yqelwicw HermannHEMATOLOGY 2012-03-14 22:50:0013.1[facility] GnhnctmIROCHGIUFF0932-66-38 22:50:0040.7[facility] VlcxpguOZILZGSYHF7445-87-83 22:50:0014.6[facility] CmaschyKMMMCCJCYR7390-00-89 22:50:0087.0[facility] WlnvaedEKFSRAAHED4368-71-56 22:50:0011.7[facility] Vin ZWMIKSYPTH5481-03-45 22:50:004.68[facility] QyhhihhVINNKHHAHQ5814-60-39 22:50:00 0.0[facility] EihuezzBJIFLMWLOM7259-84-20 22:50:000.2[facility] HermannHEMATOLOGY 2012-03-14 22:50:000.0[facility] LsprhnoPIRQKLARKK4079-77-60 22:50:000.4[facility] AjjgaryWWCYCBVWNC7106-11-23 22:50:0010.6[facility] AgnmqzbMTEZIHAHFE5530-06-97 22:50:000.7[facility] KsotsttMQDFTSIYYQ4206-33-80 22:50:003.4[facility] Vin PULIEYDWXJ3967-08-43 22:50:00Normal (03/14/2012 17:50:00)[facility] SUHLERHOIZ9408-00-02 22:50:006.0[facility] OudvkkfVWDFHHPFTE8475-17-16 22:50:000.0 [facility] QekdqthMJBOZDAAIS1417-30-47 22:50:0090.4[facility]annHEMATOLOGY 2012-03-14 22:50:00Normal (03/14/2012 17:50:00)[facility] OYRCFNX3873-95-82 23:43:28092Jniwwqdf HermannBEDSIDE GLUCOSE QNOUYTC6575-50-97 17:40:14142Xlwnknjw HermannBEDSIDE GLUCOSE JVDJLQR2422-21-16 13:34:64320Asbgmnql BtlitkhWELCBPPHX8374-40-60 00:00:00Negative (11/28/2011 19:00:00)[facility]SqbkcnaQLQMAQLFIV4079-25-44 00:00:00Performed (11/28/2011 19:00:00)[facility]CehxqxhHLFGSLOLCI6194-03-87 00:00:00Occasional /LPF (11/28/2011 19:00:00) [facility]TcxlxczLTJFPJVKMG8034-48-13 00:00:00None Seen (11/28/2011 19:00:00) [facility]oundBobrzdiYTVJWKTTSM3392-39-04 00:00:00Negative mg/dL (11/28/2011 19:00:00)[facility]oundGkkreglSRHOJPNJYY3760-84-80 00:00:00 Test Item Value Reference Range Interpretation Comments UA pH (test code = UA pH) 7.0 1 5.0-8.0 N [facility] CenterSaelkziWGLUCYQEPG9722-26-40 00:00:00 Test Item Value Reference Range Interpretation Comments UA Spec Grav (test code = UA Spec 1.020 1 N Grav) [facility]oundWkqarlnKOGPGGIRLL7271-07-40 00:00:00Clear (11/28/2011 19:00:00)[facility]oundFsbijnbSBJXIKWTRQ3609-11-20 00:00:00Yellow *NA*(11/28/2011 19:00:00)[facility] CenterYxpgfrjHEJNRMXDBO1282-34-68 00:00:000.2[facility] ZomjhtrTAAFSRGSVW3021-69-19 00:00:00Negative (11/28/2011 19:00:00)[facility] WqikfgxJORUVROJWO0513-53-04 00:00:00Negative *NA*(11/28/2011 19:00:00)[facility] EjyoaqbATMHQFRPGZ2231-91-40 00:00:00>=80 mg/dL *ABN*(11/28/2011 19:00:00)[facility]annURINALYSIS 2011-11-29 00:00:00>=1000 mg/dL *ABN*(11/28/2011 19:00:00)[facility] CXCYUWBNWK4084-42-96 00:00:00Negative (11/28/2011 19:00:00)[facility] BSFERXJOPK2540-71-69 00:00:00Negative (11/28/2011 19:00:00)[facility] OFOGKRLJK7599-74-70 20:41:0060[facility] JgkikpyNHMICEPDP3707-81-35 20:41:0041 [facility] ZmtrwtjXBUPIEUNN1761-51-38 20:41:007.45[facility]annCHEMISTRY 2011-11-28 20:41:0037.0[facility] NuikuhgBAFLORLAY7383-19-22 20:41:0092.0[facility] WxtctliBEHWGKDMR9843-39-33 20:41:004[facility] PnksgwcAIEWQTOXQ4984-07-89 20:41:00 28.5[facility] ZynftpiQJKYLOCET6247-45-04 20:00:001.6[facility]annCHEMISTRY 2011-11-28 20:00:18965Rqffkdjd UtpcjgbYUPTEONOP7554-14-82 20:00:004.2[facility] NiggwvtUWDWAZVIT0583-60-55 20:00:0023[facility] YamtdmvTDHYHLESG5892-74-43 20:00:0098[facility] YmclbkzEBFGZVEKM9808-77-41 20:00:003.8[facility] NIUZIPZBJ6878-27-09 20:00:15144Oaqhfdjo AkwwkuaNJFKOIQDQ8731-74-94 20:00:000.7 [facility] DrllfstJFHTHNPVG1330-80-81 20:00:009[facility] SrokxdfKCQBJOQVE8550-56-52 20:00:96185Euewvkgc NjjyagjIPVPXHKWR4206-73-04 20:00:0013[facility] GORQSFZMK3171-93-61 20:00:0020.8[facility] PweohpqZNYWOYNFN3039-58-73 20:00:009.3 [facility] InomjktFZUOISVBJ5045-35-52 20:00:006.7[facility]annCHEMISTRY 2011-11-28 20:00:001.7[facility] LpnkidtFIJOKZVOP5640-41-25 20:00:002.5[facility] PpmmnthUPPBEIJXQ1128-38-50 20:00:0018[facility] YwvjdzfOXCASROZV0987-30-48 20:00:0062[facility] BdweopwBCIZFLLHO2039-74-21 20:00:0032[facility] LJEVMVFSQ3801-59-58 20:00:000.7[facility] BsguuisVRQQMAWQHQ2202-16-98 20:00:001+ *ABN*(11/28/2011 15:00:00)[facility] IamtpmnIDKRXWFFAZ7807-05-20 20:00:000.1 [facility] UyezftzUOVGEVHTAN3651-77-42 20:00:000.0[facility]annHEMATOLOGY 2011-11-28 20:00:000.0[facility] JvvopifLFMBIMIHXM3335-83-86 20:00:00Slight *ABN*(11/28/2011 15:00:00)[facility] NjapbroVKBBXMDQSV0365-63-68 20:00:00Slight *ABN*(11/28/2011 15:00:00)[facility] MdsmfzyBNSPMADFLM5918-94-69 20:00:005.7 [facility] DxctuupYAKUKRVIQC0524-08-90 20:00:000.8[facility]annHEMATOLOGY 2011-11-28 20:00:000.2[facility] TnxaumeUNUSNEMRKY3763-02-55 20:00:000.0[facility] JvpvpicQKLCWQLFUY7745-23-42 20:00:001.9[facility] WnyuxqxHBTDMDEWML3420-41-45 20:00:0086.2[facility] PjdrrnlHTIRHHHNPM8308-72-06 20:00:0011.7[facility] PPGFIDAFEH1925-81-78 20:00:0010.8[facility] UowjwziSNOZMNQKXX1340-72-51 20:00:00 161[facility] OkhwgtbSSRZPALQUY1434-46-18 20:00:0035.6[facility]annHEMATOLOGY 2011-11-28 20:00:0012.4[facility] FxnprdcDRFFVCNQHK8026-45-90 20:00:00 Test Item Value Reference Range Interpretation Comments MCH (test code = MCH) 30.7 pg 27.0-31.0 N [facility] OosikeaKGTKADQPKS8800-03-26 20:00:0086.1[facility]annHEMATOLOGY 2011-11-28 20:00:0033.6[facility] YvxxnotOKGMCPQBGJ5910-98-31 20:00:0012.0[facility] DweunkpSMBQMDQUNW9541-33-09 20:00:003.90[facility] UozcikgNEVTBBTMWA8041-48-17 20:00:006.6[facility] DfbfdnfXANJQTXJM8157-02-57 19:51:00See Note 5*NA*(11/28/2011 14:51:00)[facility] TuweyvjZUDFYYIXS9976-91-83 19:51:00Negative *NA*(11/28/2011 14:51:00)[facility] UwtsexcVSFWXYLBJ0241-29-11 19:51:00Negative *NA*(11/28/2011 14:51:00)[facility] ErwhvcdPAJOHIETO4328-15-99 19:51:00Negative *NA*(11/28/2011 14:51:00)[facility] XyjpsvnMCCCCOIRG7591-43-57 19:51:00Negative *NA*(11/28/2011 14:51:00)[facility] RthsmzuHQTKUSUHS0496-72-65 19:51:00Negative *NA*(11/28/2011 14:51:00)[facility] HmarwpqVGHNQMIVD7419-54-88 19:51:00Negative *NA*(11/28/2011 14:51:00)[facility] BwyafzoKKYYHFCSM5671-47-61 19:51:00Negative *NA*(11/28/2011 14:51:00)[facility] HermannBEDSIDE GLUCOSE LYRJXWB0160-09-12 16:20:80948Nukbhkfz XbwiqvdSCHAXOTMC4442-29-60 15:30:00Negative (09/18/2011 10:30:00)[facility] YrmosblYCVAAHCUCP4633-57-75 15:30:00None Seen (09/18/2011 10:30:00)[facility] KfhzpwqGWVJGNQSQQ2215-02-59 15:30:00None Seen (09/18/2011 10:30:00)[facility] EenmtpxXKZTGZJFNS4601-20-56 15:30:00None Seen (09/18/2011 10:30:00)[facility] SendkkaSRYNYBPZLO9939-54-65 15:30:00Few /HPF *ABN*(09/18/2011 10:30:00)[facility] HoljkjfQJOKXBULZE2300-48-48 15:30:00Performed (09/18/2011 10:30:00)[facility] TzuzverZLVDOFNUSE9152-96-42 15:30:00Rare /LPF (09/18/2011 10:30:00)[facility] CsyfdexKBLVARJNLR9084-67-10 15:30:0015 mg/dL *ABN*(09/18/2011 10:30:00)[facility] OikpgnqEVONXIRQYV4177-90-06 15:30:00>=1000 mg/dL *ABN*(09/18/2011 10:30:00) [facility] HhxeomfVYHCUSJVQJ7858-64-25 15:30:00Trace *ABN*(09/18/2011 10:30:00) [facility] XtdspbkREXYJQLCUX6312-81-01 15:30:000.2[facility]annURINALYSIS 2011-09-18 15:30:00Negative (09/18/2011 10:30:00)[facility] HermannURINALYSIS 2011-09-18 15:30:00Negative *NA*(09/18/2011 10:30:00)[facility] HermannURINALYSIS 2011-09-18 15:30:00Negative (09/18/2011 10:30:00)[facility]annURINALYSIS 2011-09-18 15:30:00Negative (09/18/2011 10:30:00)[facility]annURINALYSIS 2011-09-18 15:30:00 Test Item Value Reference Range Interpretation Comments UA pH (test code = UA pH) 7.5 1 5.0-8.0 N [facility] PqcnhweUJSAMWYNOC8957-70-59 15:30:00 Test Item Value Reference Range Interpretation Comments UA Spec Grav (test code = UA Spec 1.010 1 N Grav) [facility] OeqmzutWTZBAOLDGT7663-03-00 15:30:00Slight Cloudy (09/18/2011 10:30:00) [facility] GycykbdOWCGQOIJDO2299-01-48 15:30:00Yellow *NA*(09/18/2011 10:30:00) [facility] PcglinhDABRCMNIO9283-19-26 14:07:004.4[facility] HermannCHEMISTRY 2011-09-18 14:07:001.6[facility] HermannBEDSIDE GLUCOSE ROYNEAF1289-08-02 14:01:00 >400[facility] RgsongjNAWLUAHGC7781-25-03 13:52:0030[facility] HermannCHEMISTRY 2011-09-18 13:52:003.5[facility] SwzfnfwCDIGCZZVQ7100-37-22 13:52:39393Dqsyaxgd GobbakjQDXREANIR5843-18-34 13:52:001.3[facility] UmciuqxEROLLXPBF5417-03-76 13:52:70209Moyaevmd OvkgjreMCEPWKHOS8626-94-44 13:52:0017[facility] EDLPRJBHU6972-33-56 13:52:0014.5[facility] SajhgqcQMSTOKVTOL7142-36-65 13:52:00 12.0[facility] BmjyehrUNZFEENLAD4391-53-08 13:52:04788Imrdtqmq HermannHEMATOLOGY 2011-09-18 13:52:0033.7[facility] IlhdzayPHFZLNWWZQ0393-21-97 13:52:00 Test Item Value Reference Range Interpretation Comments MCH (test code = MCH) 28.5 pg 27.0-31.0 N [facility] XsahibrIJNFEFHRXT1976-61-01 13:52:0015.1[facility] HermannHEMATOLOGY 2011-09-18 13:52:0084.6[facility] IknekstOJIUEDTDEA2815-59-57 13:52:0036.4[facility] PunrfhdJVGTNGSHUW3860-69-11 13:52:0012.3[facility] TumwomjOHZAUUBNIH7538-98-27 13:52:004.30[facility] KwzjpvdQYRTTPCNIQ1296-80-75 13:52:0011.7[facility] NEGTXHTVCT9478-87-61 13:52:002.9[facility] PmmbtwaKUMJHPWKLF9901-70-99 13:52:000.2 [facility] JtfnhhpPFWXPERKQM9038-44-36 13:52:000.0[facility]annHEMATOLOGY 2011-09-18 13:52:000.0[facility] MhbqjvzQFCJSJEIPK4131-98-13 13:52:000.3[facility] TpnbfauRBAUPBMRBB0779-23-67 13:52:0092.0[facility] AibrtcvBNPYHRAEQB7266-03-69 13:52:004.9[facility] MljdpglGBDSDGHLAR0029-11-91 13:52:00Rare *ABN*(09/18/2011 08:52:00)[facility] ZpnljhiTRWFLHQJZB3395-08-70 13:52:00Slight *ABN*(09/18/2011 08:52:00)[facility] KkvqgyxZOPIFYARIB4532-87-86 13:52:001+ *ABN*(09/18/2011 08:52:00)[facility] IrxyfaiMPGJPBQRLY9094-41-72 13:52:001+ *ABN*(09/18/2011 08:52:00)[facility] EykwiuhBHHBWFRTCG8648-61-37 13:52:000.6[facility] MPJUWZROUL0863-68-53 13:52:0010.8[facility] HiycmguTGKISKJPQN4689-07-50 13:52:00 0.0[facility] WqowgltHNVDMSICRM5649-28-30 13:52:001+ *ABN*(09/18/2011 08:52:00) [facility] ZyipfcuPTYLCBDBGC7263-70-67 13:52:00Negative *NA*(09/18/2011 08:52:00) [facility] ZjyjqisVDUVOMHWV2176-24-38 13:52:0024[facility] HermannCHEMISTRY 2011-09-18 13:52:0032.0[facility] WuacngmJDTBNKWFF6610-71-24 13:52:0044[facility] TvktgefRIYIKTIMA3923-47-36 13:52:007[facility] FycbdxyHVWQSGTBS3290-03-01 13:52:00 48.0[facility] BmdvwgxYEGCNLOSI1432-94-71 13:52:0037.0[facility] HermannCHEMISTRY 2011-09-18 13:52:007.47[facility] PcvguywTWKTKGRAP4305-52-90 13:52:0010.1[facility] XbxnpphAWIJWPMQZ7453-59-39 13:52:0092[facility] HermannBEDSIDE GLUCOSE TESTING 2011-09-09 17:34:99183Lkldokmj HermannBEDSIDE GLUCOSE YWDQBBX6112-60-05 11:43:00 91[facility] HermannBEDSIDE GLUCOSE TAAHVEL3114-63-33 02:45:37501Cxvvxqgl [facility] UKBALGFUY2418-21-25 08:47:04101Hjyyakyb OsoakkuKAONRNUZO7858-45-00 08:47:47085 [facility] MenjfzbXTWQNEWWN9376-74-08 08:47:0029[facility]annCHEMISTRY 2011-09-08 08:47:11074Ovogryvu OuevhdtPJKWKGIJN7344-46-08 08:47:0010[facility] GwumoiuBWPKQZDHA8062-74-86 08:47:003.8[facility] ZvaflcgSKICJXYYC8645-63-65 08:47:000.6[facility] FvownrcQRPETKUKB3631-97-81 08:47:008.5[facility] MGICFUQST8865-02-59 08:47:0014.8[facility] UknfyemFWTMYMJQHW3539-96-37 08:47:00 Test Item Value Reference Range Interpretation Comments MCH (test code = MCH) 28.9 pg 27.0-31.0 N [facility] IkesvqlGVOVEZQXQE6083-61-35 08:47:0082.1[facility]annHEMATOLOGY 2011-09-08 08:47:0025.9[facility] OqsngruWVYDEMHQPN1840-26-72 08:47:10193Uiugxyct UfmvdcyQBZKRGEYGO8017-81-27 08:47:0014.5[facility] GaefnaeECDZKMROUY3218-21-13 08:47:0035.2[facility] InuothrYATPXPGMEN5608-84-45 08:47:009.1[facility] JLQMIXXOFS2315-75-20 08:47:003.15[facility] WsoksyzDNIOWUVCYQ8871-93-49 08:47:00 9.0[facility] ZqitsoaTZNIEZJDFJ2786-16-93 08:47:006.3[facility]annHEMATOLOGY 2011-09-08 08:47:000.0[facility] LovgrgyOGOKGRQVOG7919-55-06 08:47:000.0[facility] IaaxjztRQBDNDCKLF1908-45-77 08:47:003.8[facility] BtujlbsGTBVSEJFFE0157-77-27 08:47:002.0[facility] HqnzhcpADZYHUWMID2903-97-92 08:47:000.5[facility] DUJEUGYTVB7496-62-54 08:47:000.7[facility] TjiwgtnLYLYNRDACV6122-38-67 08:47:006.2 [facility] DuhnjxdGHWSREBVRC7836-59-81 08:47:0061.1[facility]annHEMATOLOGY 2011-09-08 08:47:0031.5[facility] TflzrjsIMQAMJEJBQ1484-47-60 08:47:000.4[facility] HawvhroAAQBIYLSB5648-34-41 10:54:0027[facility] IfdhezbDKVOCOMGM6577-58-92 10:54:33934Dbcnrosr JutdihfNVKPLOLMX6025-31-75 10:54:000.5[facility] QLDTPSGUE6197-98-36 10:54:0010[facility] SouvlzuLQUQULRWE6296-04-90 10:54:004.1 [facility] OuzgfmnCATXJJNUG2268-90-62 10:54:91752Sqyphveq HermannCHEMISTRY 2011-09-07 10:54:0083[facility] XvxfawhQKWJKPNGO3620-34-47 10:54:008.4[facility] VypnbybAGLTVJCCY6851-69-39 10:54:0014.1[facility] JixilmtYALVRVFNKL2772-39-60 10:54:0035.5[facility] YpnppxtAQBSYCQMIU6800-47-21 10:54:004.7[facility] ENVEGQCEXZ5220-12-59 10:54:0092.6[facility] SibrmiuQQPYLIMPAE5892-81-26 10:54:00 Test Item Value Reference Range Interpretation Comments MCH (test code = MCH) 31.4 pg 27.0-31.0 [facility] WnlcbpxVXTCPTKRBS9538-76-76 10:54:003.84[facility]annHEMATOLOGY 2011-09-07 10:54:0012.1[facility] AvbubsbYAMQUUHTGB3522-87-92 10:54:52868Dvvrjzjz HofqqmcPDLHMUPGQM5861-29-17 10:54:0012.7[facility] VyinhsiUEVGBOCNYG8617-99-35 10:54:0033.9[facility] CsqiscdJXGGSMQICZ4269-11-44 10:54:007.2[facility] RSOFRDAVWB4237-82-11 10:54:000.95[facility] RxtqiywYAXACIRRRS7517-46-59 10:54:00 Test Item Value Reference Range Interpretation Comments PT (test code = PT) 12.7 s 12.0-14.7 N [facility] PiehgyuNZQPPFEOZP7503-90-25 10:54:00 Test Item Value Reference Range Interpretation Comments PTT (test code = PTT) 28.5 s 22.9-35.8 N [facility] DwzoncfLGVNNXKUGI6757-64-26 10:54:000.1[facility]annHEMATOLOGY 2011-09-07 10:54:000.0[facility] CatpmvzBTUUIRFRPZ2702-22-26 10:54:000.4[facility] NuczegrMZLFHIOTDO0136-39-36 10:54:002.1[facility] MhzzapxEIMFESSSTI4601-70-96 10:54:009.0[facility] ShuuingWPQFIRRRSB0001-79-87 10:54:002.4[facility] FPJRFSMTMR4288-40-22 10:54:000.4[facility] ZcjwyflBHOJAEJVAD4381-78-60 10:54:002.0 [facility] XcplhmsZZKDYGWUFR6367-41-57 10:54:0042.8[facility]annHEMATOLOGY 2011-09-07 10:54:0045.4[facility] LjcepyrNNCSLNRGC4139-91-78 10:02:53330Twocvumc MfpexpaNWBUNUBYI0973-78-95 10:02:004.1[facility] XpwqrpkFHKWUVVXD5896-68-83 10:02:55356Qtbetkqs GkdacpjNSTAOYBCZ7140-41-90 10:02:0029[facility] BEUFYLMXS2752-27-80 10:02:008.7[facility] YorfntvNWHPLPWMR4340-13-26 10:02:006 [facility] YemzkqqCLKLOTJEN8404-63-46 10:02:000.6[facility] HermannCHEMISTRY 2011-09-07 10:02:26618Jybsszhl ZbwgpevTVJDXEFJT1306-89-52 10:02:0013.1[facility] ZtixthgOSYRXHAQUB8355-12-04 10:02:000.0[facility] YwbdbtdFFZSSRMZZC9715-38-87 10:02:000.3[facility] ZlfphgfNJXRUMUQCP5610-72-23 10:02:000.1[facility] XAWDQXMHIB4496-44-11 10:02:002.8[facility] YlzbddbWGLEUEGWRI7715-43-89 10:02:001.7 [facility] GuzcugwEZXLFWRRDY7386-57-26 10:02:000.6[facility]annHEMATOLOGY 2011-09-07 10:02:006.9[facility] UuzdandTEABRKEPXC6828-29-79 10:02:002.0[facility] DqhhmnzIBYFQOKRJU8683-19-23 10:02:0055.8[facility] WwngyemRFIBYPLUIL1084-70-11 10:02:0034.7[facility] IbxafcbMFKSBPUVUC1428-40-45 10:02:00 Test Item Value Reference Range Interpretation Comments PTT (test code = PTT) 32.2 s 22.9-35.8 N [facility] YeqisxtPUSWPKIAIA4735-65-57 10:02:00 Test Item Value Reference Range Interpretation Comments PT (test code = PT) 13.3 s 12.0-14.7 N [facility] ZbevbtwARDCUXIDUZ2288-80-45 10:02:001.01[facility]annHEMATOLOGY 2011-09-07 10:02:0027.5[facility] PshjacqOHWZLXDLDA1245-11-87 10:02:003.34[facility] TxlsnlnWXOYLDIGFN6910-90-62 10:02:009.7[facility] PkbbbvjZKYZMNOWDY9932-23-39 10:02:005.0[facility] AgqlpuqPKSGSJJAWW5313-33-92 10:02:009.2[facility] YXNAYOBHFN4724-51-13 10:02:36636Lzdlypwg HxxoeoiPDNWKPXJPG3543-97-56 10:02:00 14.3[facility] InrlusvHTVQQNDLKJ0129-47-59 10:02:0035.2[facility]annHEMATOLOGY 2011-09-07 10:02:00 Test Item Value Reference Range Interpretation Comments MCH (test code = MCH) 28.9 pg 27.0-31.0 N [facility] FkmwweiYPPWVYBZEU9346-77-41 10:02:0082.1[facility]annCHEMISTRY 2011-09-03 09:24:002.1[facility] SaefmwaLQGWYCIJB5083-88-26 17:10:0037.0[facility] LhfovnhQJHKDQTWQ5607-21-56 17:10:0027.0[facility] TrljfmfIZHQHMQVK4200-39-94 17:10:0047[facility] GvhbpgoXJGLYMSEO0891-12-14 17:10:007.37[facility] PUAJOUJRO6038-79-27 17:10:001[facility] HwyunzqEHLIPPFHO3300-27-42 17:10:0027.2 [facility] WqgdhknSVGOOXUZX3318-45-70 17:10:0019[facility]annCHEMISTRY 2011-09-01 13:09:001.0[facility] QcegvuiBXQPGMVXR9222-22-23 12:20:00Negative (09/01/2011 07:20:00)[facility] OelsrppEDGXBWVIYR5477-16-45 12:20:00Occasional /LPF (09/01/2011 07:20:00)[facility] QkdzessDPRXACDZMR2310-27-63 12:20:00Negative (09/01/2011 07:20:00)[facility] YcungajFDDUQPBLSV8597-97-54 12:20:00Negative (09/01/2011 07:20:00)[facility] FmvaersSBAFKEHOQG1853-76-33 12:20:000.2[facility] UvoqhdmPJDFKZLCTQ7126-87-27 12:20:00Negative (09/01/2011 07:20:00)[facility] KrpssezUAUVZSJTOX8051-38-36 12:20:00>=80 mg/dL *ABN*(09/01/2011 07:20:00) [facility] PniuzinMKGQXHXRQY8369-04-85 12:20:00Negative (09/01/2011 07:20:00) [facility] ZmgqdxjFFJLUSZFCP5798-82-87 12:20:00 Test Item Value Reference Range Interpretation Comments UA pH (test code = UA pH) 6.0 1 5.0-8.0 N [facility] DgrenihUTZIKEQLOF7441-95-24 12:20:00Negative (09/01/2011 07:20:00) [facility] GacaacxKNEIWSNVKS4511-49-15 12:20:00>=1000 mg/dL *ABN*(09/01/2011 07:20:00)[facility] VgofiokHXPUNXGJNT1087-35-52 12:20:00 Test Item Value Reference Range Interpretation Comments UA Spec Grav (test code = UA Spec 1.035 1 H Grav) [facility] FcfmvtmDWPOQJRJWX7250-86-46 12:20:00Clear (09/01/2011 07:20:00)[facility] IzriyujNYMTVQYXDW5834-75-08 12:20:00Yellow *NA*(09/01/2011 07:20:00)[facility] IrlnzyoYWAABPLBM1157-55-34 08:00:002.8[facility] UwsmfybEUMMMTHAZ8035-19-07 07:47:001.5[facility] RffcuilBFCTLMQDJI8439-21-43 07:47:00Slight (09/01/2011 02:47:00)[facility] DobvjiyOGJGHKELNK7212-76-85 07:47:001+ *ABN*(09/01/2011 02:47:00)[facility] GcuwgvxKNZMKJBPZA2604-08-02 07:47:00Slight *ABN*(09/01/2011 02:47:00)[facility] UutmqwwMPEEQPDUVY6539-24-10 07:47:00Slight *ABN*(09/01/2011 02:47:00)[facility] HermannBEDSIDE GLUCOSE JLCGMFR7550-09-43 17:02:09557Wpogqtzl HermannBEDSIDE GLUCOSE RARBYUC5724-15-40 13:45:91666Ubhlfnum HermannCHEMISTRY 2011-08-23 10:22:003.0[facility] IwtgbegQCVUAHXCQ3215-82-20 10:22:001.8[facility] QmuiwhbZQXBCNBNK6507-36-94 10:22:66842Fwklgjcb DtqqepyXWGTMVBSH1086-57-20 10:22:003.0[facility] JegfxboTFXZPNUFH8101-70-51 10:22:71090Bfpgiluk Vin XZGLUVYQQ9846-36-16 10:22:000.6[facility] CqqxokbUQXJTCCGA5183-54-48 10:22:0023 [facility] LiipquwCCFGWJZMY3246-18-23 10:22:007.3[facility] HermannCHEMISTRY 2011-08-23 10:22:60692Zmjfwlrk AmbvynlBHZDMIAFV1779-03-38 10:22:0014.0[facility] IfcrwvxSLCYWTRIO1174-17-43 10:22:005[facility] OedcxztQEJNABXLTR3577-56-48 10:22:0069.6[facility] WsrslcgPKFPKQQJEX1733-67-83 10:22:0021.5[facility] MWCEIXFJBA5507-69-53 10:22:007.6[facility] TovujsgZMQDHHRONJ9490-35-02 10:22:001.0 [facility] CnzibjfWHIKADNQZN9361-59-93 10:22:000.3[facility] HermannHEMATOLOGY 2011-08-23 10:22:004.8[facility] CwfqhasCQBANKNKEW4902-80-79 10:22:000.1[facility] TetaentZNOLHWROTS7126-32-89 10:22:001.5[facility] NckajqiBNXUKFMBLJ3707-00-34 10:22:000.5[facility] AexhfhuGDUALVOMMO8211-39-34 10:22:000.0[facility] XMCYJMGAOX6278-55-22 10:22:0011.0[facility] TisutzeAMYPYFIIUP5296-72-22 10:22:00 161[facility] VoqdortOCPDRTPILU1957-21-92 10:22:00 Test Item Value Reference Range Interpretation Comments MCH (test code = MCH) 29.6 pg 27.0-31.0 N [facility] CicyhviCVVAAWCLRS1439-66-37 10:22:0035.4[facility] HermannHEMATOLOGY 2011-08-23 10:22:0014.1[facility] VcojexsQGRMNAAMUU6613-44-04 10:22:006.8[facility] OoyqcioDECEEUJIHL4731-46-08 10:22:0083.5[facility] ZaojwtjCTGFZKNLCL2947-91-76 10:22:004.44[facility] JeidpayKIEJWUKEFM5658-27-25 10:22:0013.1[facility] WUQQRWTKMW9399-10-77 10:22:0037.1[facility] HermannBEDSIDE GLUCOSE TESTING 2011-08-23 02:20:89061Gzkatgbq PnnygiwADKKPKJPR7549-92-82 09:47:002.5[facility] FyxaqrcVBGBELUSB4860-34-52 09:47:76562Lecfkque WiusppbIRADPVHRT6228-82-74 09:47:007[facility] RzapsanQRLOGUSNX7364-29-11 09:47:0019[facility] HermannCHEMISTRY 2011-08-22 09:47:000.3[facility] KnjygooKSMSOXNSI3689-15-65 09:47:22437Balbkxca WeoluxjYBWOYYPMK1504-68-31 09:47:08565Iyiibjpd CzekmlcLDVNDPJFH3403-20-06 09:47:003.6[facility] OzdutvgFWBWIUCKS0864-54-08 09:47:007.9[facility] SSTGHKXZE4209-82-63 09:47:0018.6[facility] McrzqsaVRYCMGLEH8533-78-35 09:47:001.6 [facility] TvewbtgULVFBKSBFP2941-58-71 09:47:000.0[facility] HermannHEMATOLOGY 2011-08-22 09:47:000.4[facility] GyeuqooTLFMDJSHNI3494-64-69 09:47:000.5[facility] UbfzqonZUAVTIJIFX7298-47-34 09:47:005.9[facility] TochpngEWKZSLGOYB3521-22-98 09:47:001.2[facility] OyjjqroYXMMFIWFEO0847-64-19 09:47:000.5[facility] Vin QMIVBNIMJS6621-34-78 09:47:000.0[facility] ZhlbvjoMVFRMJUNFT1578-77-46 09:47:00 76.9[facility] SzcrzwpNZAJHGNJBJ2989-62-05 09:47:0015.9[facility] HermannHEMATOLOGY 2011-08-22 09:47:006.3[facility] RckbqqwWDKNFDZOWF2743-62-22 09:47:0082.8[facility] HubyhzaYMZWPKVJKC8497-52-88 09:47:0039.7[facility] PoubundPSNXVWYLYV8105-19-86 09:47:00 Test Item Value Reference Range Interpretation Comments MCH (test code = MCH) 29.1 pg 27.0-31.0 N [facility] DjxdzecHASELETFMW7757-50-40 09:47:0014.0[facility] HermannHEMATOLOGY 2011-08-22 09:47:0035.2[facility] BmbldkiVHXKDCJSLF3432-01-58 09:47:0013.9[facility] AcpdroeKHFNGZJUMF7088-16-41 09:47:33483Rhkvjpki RagizxxBAGGCUHLWO3595-06-44 09:47:0011.9[facility] SbwujwpMISXYDKTMH2247-39-40 09:47:007.7[facility] MKXDAAYOBI9199-20-58 09:47:004.80[facility] FnmhrmbBTVRMPSUT4908-42-66 10:28:002.6 [facility] ChgvsuhXWACHKGVH1535-90-34 10:28:001.8[facility] HermannCHEMISTRY 2011-08-21 10:28:003.7[facility] KtclzasKQEJEEBTV1772-36-79 10:28:58314Qkgtjlbi IvgyzlpPWJZRRHEU0310-47-17 10:28:000.6[facility] MnlqqojJOQSIWHAQ9130-47-24 10:28:0016[facility] BqbyxcmYSFWXKCGE2209-25-80 10:28:14339Xflqcyil Vin CFYFHRSIX3548-74-62 10:28:008.3[facility] QdjsfrmAMKZLYALW5293-44-72 10:28:0019.7 [facility] HbtgvumYUGIFMLYQ9702-98-37 10:28:0099[facility] HermannCHEMISTRY 2011-08-21 10:28:0022[facility] CmjoziaYHRNMNBCJF1921-52-25 10:28:69587Buygjwng DyophteJLEQHFHYPU4131-28-35 10:28:0012.0[facility] StarxfmGHMQTVBHER6479-12-61 10:28:007.3[facility] GnzmsthYMKONUDDSC2796-99-65 10:28:0014.6[facility] Vin DXBDPSFJIB6053-96-91 10:28:0035.0[facility] VxsbpwcYLVLUHXBFC0547-56-24 10:28:00 4.54[facility] HjqncgnGJWLXOLRHH3220-28-22 10:28:0037.6[facility] HermannHEMATOLOGY 2011-08-21 10:28:0082.9[facility] HsjscbiVWEISXRNXF6919-56-87 10:28:00 Test Item Value Reference Range Interpretation Comments MCH (test code = MCH) 29.0 pg 27.0-31.0 N [facility] XpviietHATBMGOAMC3946-15-82 10:28:0013.2[facility] HermannHEMATOLOGY 2011-08-21 10:28:00Slight *ABN*(08/21/2011 04:28:00)[facility]annHEMATOLOGY 2011-08-21 10:28:00Slight (08/21/2011 04:28:00)[facility]annHEMATOLOGY 2011-08-21 10:28:000.0[facility] FlzkmbcKFGVVFBMWK7141-17-64 10:28:00Slight (08/21/2011 04:28:00)[facility] VdadlfdGXWBWBQUQW5553-23-88 10:28:000.6[facility] ZmosmxoBSGIFGYJHF5764-49-03 10:28:000.0[facility] IufzpvuNMMUUKRGNS6984-46-07 10:28:005.3[facility] VlxbzesHLUWFITEIQ8603-63-61 10:28:001.3[facility] OKADEBVXXK1219-07-63 10:28:000.5[facility] PjhenzgTCWQAUZWTX4887-05-08 10:28:008.5 [facility] PxgpeyrPFJXRIRGDX2912-36-72 10:28:000.3[facility] HermannHEMATOLOGY 2011-08-21 10:28:0017.3[facility] DqldyijAPTGFCRQCD9599-32-41 10:28:0073.4[facility] VxktuokAQOVJUBUI9117-74-80 21:58:00Negative (08/19/2011 15:58:00)[facility] JymkqibYZMOMCJCR3743-66-83 21:58:02589Cleavgxz DegjfxuRKPJTDOVI5212-22-36 21:58:0054[facility] GalvibiLGNWNEWPS7546-84-90 21:58:61379Byaplufp Vin FELTWRPEX4924-14-76 21:58:000.1[facility] DaeemojJASISALBX9175-65-67 21:58:000.9 [facility] QbcmobnXZSLHNXOT1748-31-86 21:58:004.4[facility] HermannCHEMISTRY 2011-08-19 21:58:008.8[facility] DbivaveJVARUWHJY3070-33-30 21:58:000.8[facility] IalgosdBMYACUGPN3790-67-40 21:58:0036[facility] YaytjabEEYATYUZA5974-14-39 21:58:004.4[facility] QzsbghvECPLXIJOU5856-58-22 21:58:001.0[facility] LCDYJEOHNC2319-07-01 21:58:00Occasional /HPF (08/19/2011 15:58:00)[facility] JsagdilYNQBLTYIAG8020-41-27 21:58:003-5 /HPF *ABN*(08/19/2011 15:58:00)[facility]ylitoCHBVXHIAIJ2014-67-41 21:58:003[facility] EdzaaojGHEXLMBQTQ1853-44-45 21:58:00Few /LPF (08/19/2011 15:58:00)[facility] CenterMfmqgceNRJSEJBJJR7430-50-78 21:58:00Occasional /HPF *ABN*(08/19/2011 15:58:00)[facility]annURINALYSIS 2011-08-19 21:58:000.2[facility] QdmvlyyXYURIDODFQ9633-37-42 21:58:00Rare /LPF (08/19/2011 15:58:00)[facility] CenterQxdnqutHKSSPBRAPA8755-91-10 21:58:00Performed (08/19/2011 15:58:00)[facility] CenterWvphyrjUGDQNYCSAG9874-16-99 21:58:00Negative (08/19/2011 15:58:00)[facility] CenterLquyqtpLZJQMGRNEN7714-87-77 21:58:00Negative (08/19/2011 15:58:00)[facility] CenterLgjqsrmYYAPHBVPXV5239-31-42 21:58:00 Test Item Value Reference Range Interpretation Comments UA pH (test code = UA pH) 5.5 1 5.0-8.0 N [facility] CenterQivfkncNCIJFDKQLN9592-30-05 21:58:00Trace *ABN*(08/19/2011 15:58:00) [facility] CenterWdzqlxuDSDBYNHRDN6382-96-67 21:58:00Negative (08/19/2011 15:58:00) [facility] CenterAvcyxaqUBMDFAJJRZ9926-00-18 21:58:0080 mg/dL *ABN*(08/19/2011 15:58:00) [facility] CenterHfrospgBQJZCRCRVR4158-47-48 21:58:00>=1000 mg/dL *ABN*(08/19/2011 15:58:00)[facility] CenterEbzjqmdEMZKSYABCF6505-47-54 21:58:00Negative (08/19/2011 15:58:00)[facility]gjgczqPZRESZBFKC3175-58-26 21:58:00Slight Cloudy (08/19/2011 15:58:00)[facility] OnpdfqbEXGTTNLJHU6226-85-92 21:58:00 Test Item Value Reference Range Interpretation Comments UA Spec Grav (test code = UA Spec 1.025 1 Grav) [facility] AxwfkedVRDVSQZXNE9784-58-43 21:58:00Yellow (08/19/2011 15:58:00) [facility] YdeisbsCQLKPGZUE2978-07-79 21:13:0023[facility] HermannCHEMISTRY 2011-08-19 21:13:001.0[facility] KlhqijeMUBGKVMYZ5167-39-97 21:13:70326Lchmagqs EcwfnfyOGWGXVOXP1232-29-80 21:13:0056[facility] XlnwcnpGUSLTKBDW3755-99-84 21:13:009.0[facility] SmfzmemBCMERUXHN0455-88-89 21:13:004.8[facility] OKPYGJUQN6380-30-70 21:13:004.2[facility] WddxmrxSWRONNXGD4023-39-31 21:13:001.1 [facility] BnngvweNILTWDAGC0909-18-21 21:13:0030[facility]annHEMATOLOGY 2011-08-19 21:13:00Normal (08/19/2011 15:13:00)[facility] 2011-08-19 21:13:00Slight *ABN*(08/19/2011 15:13:00)[facility]ann[facility] 2011-08-19 21:13:000.0[facility] GxzrlxnXABAYFXSQC2615-75-09 21:13:000.0[facility] QgvigjmLCTRZPTAG7143-96-91 21:10:0074.0[facility] VoznxktZWOMVZLXF8660-19-42 21:10:0037.0[facility] ZerbnxqIXTKVPNHU5839-31-68 21:10:0042[facility] HUSJJSIAD7264-87-40 21:10:0017.3[facility] PdmajkmJCMGOMOBF8448-43-44 21:10:007.34 [facility] SzhauumPMOUJHNPY9951-15-50 21:10:0032[facility]annCHEMISTRY 2011-08-19 21:10:00-7[facility] KubzqiwGIPVZSPJCL3011-50-71 20:34:00Negative *NA*(08/19/2011 14:34:00)[facility]
[2021-02-17 07:11] LABS: Absolute Lymphocytes (CBC) 1.1 K/uL (0.7-4.9); Basophils % 2.8 % (0-1.3); Hematocrit 26.2 % (36.0-45.0); Lymphocytes % 23.5 % (15.3-44.8); MPV 9.9 fL (7.6-11.3); RBC Red Blood Cell Count 2.82 M/uL (3.86-4.86)
[2021-02-17 07:28] LABS: Protime INR 1.09
[2021-02-17 07:45] LABS: ALT/SGPT 16 U/L (12-78); AST/SGOT 27 U/L (15-37); Albumin 3.8 g/dL (3.4-5.0); Alkaline Phosphatase 50 U/L (45-117); BUN Blood Urea Nitrogen 61 mg/dL (7-18); Bicarbonate 22 mmol/L (21-32); Bilirubin Direct 0.2 mg/dL (0-0.2); Bilirubin Total 0.7 mg/dL (0.2-1.0); Glucose Level 108 mg/dL (74-106); Protein, Total 6.9 g/dL (6.4-8.2); Sodium Level 140 mmol/L (136-145)
[2021-02-17 07:46] LABS: NT PRO-BNP > 175000 pg/mL (<125); Troponin (Emerg Dept Use Only) < 0.02 ng/mL (0.0-0.045)
[2021-02-17 07:47] LABS: Potassium 5.7 mmol/L (3.5-5.1)
[2021-02-17] MEDS ORDERED: NITROGLYCERIN 0.4 MG/TAB SL ONE (08:17)
--- NOTE | 2021-02-17 08:45 | ER ---
Nurse's Notes [facility] Name: Cathi Zaldivar Age: 40 yrs Sex: Female : 1980 Arrival Date: 02/17/2021 Time: 05:42 Bed 25 Private MD: Diagnosis: Hypertensive urgency;Chronic kidney disease, unspecified;Chest pain on breathing;Hyperkalemia Presentation: 02/17 06:21 Chief complaint: Patient states: she has been having abdominal pain, arm pain and chest bb pain since Wednesday and has vomited a few times. She was not able to go to dialysis on Wednesday because she has to be Covid tested first. Coronavirus screen: At this time, the client does not indicate any symptoms associated with coronavirus-19. Ebola Screen: No symptoms or risks identified at this time. Initial Sepsis Screen: Does the patient meet any 2 criteria? No. Patient's initial sepsis screen is negative. Does the patient have a suspected source of infection? No. Patient's initial sepsis screen is negative. Risk Assessment: Do you want to hurt yourself or someone else? Patient reports no desire to harm self or others. Onset of symptoms was February 14, 2021. 06:21 Method Of Arrival: Ambulatory bb 06:21 Acuity: JESSICA 2 bb 06:33 Note pt also states she had a procedure 01/21/21 during which she went into cardiac bb arrest and was hospitalized for two weeks. Triage Assessment: 06:23 General: Appears in no apparent distress. uncomfortable, Behavior is crying. Pain: bb Complains of pain in chest Pain currently is 10 out of 10 on a pain scale. Neuro: Level of Consciousness is awake, alert, obeys commands, Oriented to person, place, time, situation. Cardiovascular: Capillary refill < 3 seconds Patient's skin is warm and dry. Rhythm is sinus rhythm. Respiratory: Respiratory effort is even, unlabored, Respiratory pattern is regular. GI: Reports upper abdominal pain, vomiting. Derm: Skin is dry, Skin is pale, Skin temperature is warm. Musculoskeletal: Circulation, motion, and sensation intact. 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 02/17/2021 bb Historical: - Allergies: 06:23 ambien; bb 06:23 Codeine; bb 06:23 GUAIFENESIN; bb 06:23 Ibuprofen; bb 06:23 Lisinopril; bb 06:23 Morphine; bb 06:23 Nitrofurantoin Macrocrystal; bb 06:23 PENICILLINS; bb 06:23 Prolixin; bb 06:23 zolpidem tartrate; bb - Home Meds: 06:23 divalproex 500 mg Oral tab 2 times per day [Active]; doxazosin 4 mg Oral tab [Active]; bb gabapentin 100 mg Oral cap as needed [Active]; hydralazine 50 mg Oral tab [Active]; Lantus 100 unit/mL Sub-Q tab as needed [Active]; metoprolol tartrate 25 mg Oral tab 1 tab 2 times per day [Active]; Novolog 100 unit/mL Sub-Q tab [Active]; pravastatin Oral [Active]; sertraline 100 mg Oral tab [Active]; tramadol 50 mg Oral tab 1 tab PRN [Active]; - PMHx: 06:23 "mental problems"; CHF; chronic kidney disease; covid 19; cyclic vomiting syndrome; bb Diabetes - NIDDM; Dialysis; m-w-f; ENCEPHALOPATHY; Gastroparesis; HD-TTHSat; Hypertension; ibs; liver failure; PERIPHERAL NEUROPATHY; Seizures; - PSHx: 06:23 section; bb - Immunization history:: Adult Immunizations up to date, Client reports having NOT received the Covid vaccine. - Social history:: Smoking status: Patient reports the use of cigarette tobacco products, denies chronic smoking, but will smoke occasionally. Screenin:18 Abuse screen: Denies threats or abuse. Nutritional screening: No deficits noted. lh3 Tuberculosis screening: No symptoms or risk factors identified. Fall Risk IV access (20 points). Assessment: 07:18 Pain: Complains of pain in abdomen Pain does not radiate. Pain began 3 hours ago. lh3 13:44 Reassessment: No changes from previously documented assessment. Patient and/or family aj2 updated on plan of care and expected duration. Pain level reassessed. Patient is alert, oriented x 3, equal unlabored respirations, skin warm/dry/pink. General: Appears comfortable, Behavior is agitated. Vital Signs: 06:21 BP 243 / 104; Pulse 75; Resp 20 S; Temp 97.9(O); Pulse Ox 100% on R/A; Weight 71 kg bb (R); Height 5 ft. 2 in. (157.48 cm) (R); Pain 10/10; 13:44 BP 228 / 103; Pulse 74; Resp 20; Temp 97.7; aj2 06:21 Body Mass Index 28.63 (71.00 kg, 157.48 cm) talya ED Course: 05:42 Patient arrived in ED. wm 06:23 Triage completed. bb 06:23 Arm band placed on. EKG completed in triage. Results shown to MD. bb 06:31 Hermilo Carpio PA is PHCP. jr8 06:31 Сергей Li MD is Attending Physician. jr8 06:31 Сергей Li MD is Attending Physician. jr8 06:32 Saskia Leger RN is Primary Nurse. lh3 07:18 Patient has correct armband on for positive identification. Bed in low position. Call lh3 light in reach. Side rails up X 1. laboratory monitor on. Pulse ox on. NIBP on. 07:18 No provider procedures requiring assistance completed. Inserted saline lock: 20 gauge lh3 in right ,using aseptic technique. breast Blood collected. 07:18 Patient maintains SpO2 saturation greater than 95% on room air. lh3 08:26 XRAY Chest (1 view) In Process Unspecified. EDMS 08:43 Enrique Villeda DO is Hospitalizing Provider. jr8 10:02 Hospitalizing Provider role handed off by Enrique Villeda DO jr8 10:02 Chandler Bautista is Hospitalizing Provider. jr8 13:44 Appears to be sleeping. aj2 13:44 IV Flushed. aj2 15:[address] [facility] in stable condition. Report given to Ainsley (RN). RN and aj2 hospitalist aware of patients V/S and history. Administered Medications: 07:56 Drug: Nitroglycerin 0.4 mg Route: Sublingual; aj2 09:20 Drug: Zofran (Ondansetron) 4 mg Route: IVP; Site: Other; aj2 09:30 Drug: fentaNYL (PF) 75 mcg Route: IVP; Site: Other; [facility] Outcome: 08:44 Decision to Hospitalize by Provider. jr8 15:15 Patient left the ED. iw Signatures: Dispatcher MedHo EDAR Bustillos, HawaTABATHA hussein RN, Irene, RN RN iw Roszak, Josh, PA PA jr8 Bisi Car Latisha, RN RN 3 Gracy Gibson 2 Kwan Jennings RN RN ch5 Corrections: (The following items were deleted from the chart) 06:25 06:23 PMHx: gastroporesis; talya babin
--- NOTE | 2021-02-17 08:45 | EDPHYS ---
Physician Documentation [facility] Name: Cathi Zaldivar Age: 40 yrs Sex: Female : 1980 Arrival Date: 02/17/2021 Time: 05:42 Bed 25 Private MD: DWIGHT Physician Сергей Li HPI: 02/17 07:07 This 40 yrs old Female presents to ER via Ambulatory with complaints of Chest jr8 Pain > 30 y/o. 07:07 The patient or guardian reports chest pain that is located primarily in the anterior jr8 chest wall. The pain does not radiate. Associated signs and symptoms: The patient has no apparent associated signs or symptoms. The chest pain is described as sharp. Duration: The patient or guardian reports a single episode, that is still ongoing. Modifying factors: The symptoms are alleviated by nothing. the symptoms are aggravated by nothing. Severity of pain: At its worst the pain was moderate in the emergency department the pain is unchanged. The patient has not experienced similar symptoms in the past. The patient has not recently seen a physician. This is a 40-year-old female who presented to the emergency room for acute onset of chest pain that started today. Patient stated that she had gone in for a endoscopy secondary to gastrointestinal hemorrhage a couple weeks ago. During the procedure had coded a couple times. Stated that her chest does hurt since then but much worse today as her last dialysis was this previous Wednesday. Stated that a family member had been around somebody that tested positive and that her dialysis center was requiring her to get tested but could not get in until Wednesday for a test. Patient hypertensive upon arrival. 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:23 LMP 02/17/2021 bb Historical: - Allergies: 06:23 ambien; bb 06:23 Codeine; bb 06:23 GUAIFENESIN; bb 06:23 Ibuprofen; bb 06:23 Lisinopril; bb 06:23 Morphine; bb 06:23 Nitrofurantoin Macrocrystal; bb 06:23 PENICILLINS; bb 06:23 Prolixin; bb 06:23 zolpidem tartrate; bb - Home Meds: 06:23 divalproex 500 mg Oral tab 2 times per day [Active]; doxazosin 4 mg Oral tab [Active]; bb gabapentin 100 mg Oral cap as needed [Active]; hydralazine 50 mg Oral tab [Active]; Lantus 100 unit/mL Sub-Q tab as needed [Active]; metoprolol tartrate 25 mg Oral tab 1 tab 2 times per day [Active]; Novolog 100 unit/mL Sub-Q tab [Active]; pravastatin Oral [Active]; sertraline 100 mg Oral tab [Active]; tramadol 50 mg Oral tab 1 tab PRN [Active]; - PMHx: 06:23 "mental problems"; CHF; chronic kidney disease; covid 19; cyclic vomiting syndrome; bb Diabetes - NIDDM; Dialysis; m-w-f; ENCEPHALOPATHY; Gastroparesis; HD-TTHSat; Hypertension; ibs; liver failure; PERIPHERAL NEUROPATHY; Seizures; - PSHx: 06:23 section; bb - Immunization history:: Adult Immunizations up to date, Client reports having NOT received the Covid vaccine. - Social history:: Smoking status: Patient reports the use of cigarette tobacco products, denies chronic smoking, but will smoke occasionally. ROS: 07:07 Eyes: Negative for injury, pain, redness, and discharge, ENT: Negative for injury, jr8 pain, and discharge, Neck: Negative for injury, pain, and swelling, Respiratory: Negative for shortness of breath, cough, wheezing, and pleuritic chest pain, Back: Negative for injury and pain, MS/Extremity: Negative for injury and deformity, Skin: Negative for injury, rash, and discoloration, Neuro: Negative for headache, weakness, numbness, tingling, and seizure. 07:07 Cardiovascular: Positive for chest pain. 07:07 Abdomen/GI: Positive for abdominal pain, nausea and vomiting. Exam: 07:07 Cardiovascular: Regular rate and rhythm with a normal S1 and S2. No gallops, murmurs, jr8 or rubs. Normal PMI, no JVD. No pulse deficits. Respiratory: Lungs have equal breath sounds bilaterally, clear to auscultation and percussion. No rales, rhonchi or wheezes noted. No increased work of breathing, no retractions or nasal flaring. 07:07 Back: No spinal tenderness. No costovertebral tenderness. Full range of motion. Skin: Warm, dry with normal turgor. Normal color with no rashes, no lesions, and no evidence of cellulitis. MS/ Extremity: Pulses equal, no cyanosis. Neurovascular intact. Full, normal range of motion. Neuro: Awake and alert, GCS 15, oriented to person, place, time, and situation. Cranial nerves II-XII grossly intact. Motor strength 5/5 in all extremities. Sensory grossly intact. 07:07 Constitutional: The patient appears alert, awake, uncomfortable. 07:07 Abdomen/GI: Inspection: bruising, right upper quadrant and left lower quadrant, Bowel sounds: active, all quadrants, Palpation: soft, in all quadrants, mild abdominal tenderness, in the epigastric area, Indicators: McBurney's point is not tender, Garcia's sign is negative, Liver: no appreciated palpable abnormalities, Patient's bruising from recent Lovenox shots. Vital Signs: 06:21 BP 243 / 104; Pulse 75; Resp 20 S; Temp 97.9(O); Pulse Ox 100% on R/A; Weight 71 kg bb (R); Height 5 ft. 2 in. (157.48 cm) (R); Pain 10/10; 13:44 BP 228 / 103; Pulse 74; Resp 20; Temp 97.7; aj2 06:21 Body Mass Index 28.63 (71.00 kg, 157.48 cm) bb MDM: 06:32 Patient medically screened. jr8 08:42 Data reviewed: vital signs, nurses notes, lab test result(s), EKG, radiologic studies, jr8 plain films. Data interpreted: Pulse oximetry: on room air is 100 %. Interpretation: normal. Counseling: I had a detailed discussion with the patient and/or guardian regarding: the historical points, exam findings, and any diagnostic results supporting the discharge/admit diagnosis, lab results, radiology results, the need for further work-up and treatment in the hospital. ED course: Patient with continued pain. Blood pressure much higher than it normally is when we have seen her in the past. Patient has not been dialyzed since last Wednesday. Has hyperkalemia. Will need dialysis. Try to get a hold of Dr. Morin her golf course assistant awaiting callback for that. In the meantime will be admitted.. 02/17 06:32 Order name: Basic Metabolic Panel; Complete Time: 07:49 jr8 02/17 06:32 Order name: CBC with Diff; Complete Time: 08:03 jr8 02/17 06:32 Order name: LFT's; Complete Time: 07:49 jr8 02/17 06:32 Order name: Magnesium; Complete Time: 07:49 02/17 06:32 Order name: NT PRO-BNP; Complete Time: 07:49 02/17 06:32 Order name: PT-INR; Complete Time: 07:59 8 02/17 06:32 Order name: Troponin (emerg Dept Use Only); Complete Time: 07:49 8 02/17 06:32 Order name: XRAY Chest (1 view); Complete Time: 09:11 8 02/17 06:32 Order name: EKG; Complete Time: 06:33 02/17 11:36 Order name: SARS-COV-2 RT PCR; Complete Time: 11:49 EDSD 02/17 06:32 Order name: Cardiac monitoring; Complete Time: 07:06 02/17 06:32 Order name: EKG - Nurse/Tech; Complete Time: 07:06 02/17 06:32 Order name: IV Saline Lock; Complete Time: 07:06 02/17 06:32 Order name: Labs collected and sent; Complete Time: 07:06 02/17 06:32 Order name: O2 Per Protocol; Complete Time: 07:06 02/17 06:32 Order name: O2 Sat Monitoring; Complete Time: 07:06 02/17 10:35 Order name: CONS Physician Consult EDMS Administered Medications: 07:56 Drug: Nitroglycerin 0.4 mg Route: Sublingual; aj2 09:20 Drug: Zofran (Ondansetron) 4 mg Route: IVP; Site: Other; aj2 09:30 Drug: fentaNYL (PF) 75 mcg Route: IVP; Site: Other; 5 Disposition Summary: 02/17/21 08:44 Hospitalization Ordered Hospitalization Status: Observation jr8 Location: Telemetry/MedSurg (observation) jr8 Condition: Fair jr8 Problem: new jr8 Symptoms: are unchanged jr8 Bed/Room Type: Standard 8 Provider: Chandler Bautista(02/17/21 10:02) jr Room Assignment: [facility](02/17/21 13:17) Diagnosis - Hypertensive urgency jr8 - Chronic kidney disease, unspecified jr8 - Chest pain on breathing jr8 - Hyperkalemia jr8 Discharge Instructions: - Discharge Summary Sheet ch5 Forms: - Medication Reconciliation Form jr8 - SBAR form ch5 Signatures: Dispatcher [employer] EDMaribel Grissom RN RN Hawa Santiago RN RN Hermilo Mohamud PA PA jr8 Gracy Gibson aj2 Kwan Jennings RN RN 5 Corrections: (The following items were deleted from the chart) 06:25 06:23 PMHx: gastroporesis; talya babin 10:02 08:44 Enrique Villeda jr8 jr8 10:43 09:13 CORONAVIRUS+MR.LAB.BRZ ordered. [facility] EDSD 13:17 08:44 jr8
--- NOTE | 2021-02-17 09:04 | RAD REPORT ---
EXAM DESCRIPTION: RAD - Chest Single View - 02/17/2021 8:26 am CLINICAL HISTORY: Dyspnea;Chest pain COMPARISON: September 2020 TECHNIQUE: AP portable chest image was obtained 02/17/2021 8:26 am . FINDINGS: Lung volumes are low. No peripheral mass or consolidation identifiable. Interstitial patte rn is not clearly different from comparison. Enlarged cardiac silhouette is again identified. No vascular engorgement. No measurable pleural effu marlin and no pneumothorax. No acute bony abnormality seen. No acute aortic findings suspected. IMPRESSION: No acute lung parenchymal process. The baseline interstitial pattern could potentially m ask early edema or infiltrate. Enlarged cardiac silhouette without vascular engorgement. Pattern matches comparison.
[2021-02-17] MEDS ORDERED: ONDANSETRON 4 MG/2 ML VIAL ONE (09:49)
[2021-02-17] MEDS ORDERED: FENTANYL CITR 100 MCG/2 ML ONE (10:05)
--- NOTE | 2021-02-17 15:00 | P.HP ---
Certification for Inpatient Patient admitted to: Observation With expected LOS: <2 Midnights Patient will require the following post-hospital care: None Practitioner: I am a practitioner with admitting privileges, knowledge of patient current condition, hospital course, and medical plan of care. Services: Services provided to patient in accordance with Admission requirements found in Title 42 Section 412.3 of the Code of Federal Regulations Patient History Date of Service: 02/17/21 Reason for admission: chest pain, dialysis History of Present Illness: This is a 40 y/o F with CHF, gastroparesis, ESRD on dialysis MWF who presents with chest pain, abdominal pain, shortness of breath x 2 days. Her symptoms feel similar to when she misses her dialysis. She missed her dialysis last Wednesday because she needed a covid test due to recent exposure and was not able to get test scheduled until tomorrow. She reports that she coded twice on 01/21 during a endoscopy/colonoscopy at [facility]. initial trop negative K 5.7, BUN 61, Cr 8.95 CXR: FINDINGS: Lung volumes are low. No peripheral mass or consolidation identifiable. Interstitial pattern is not clearly different from comparison. Enlarged cardiac silhouette is again identified. No vascular engorgement. No measurable pleural effusion and no pneumothorax. No acute bony abnormality seen. No acute aortic findings suspected. IMPRESSION: No acute lung parenchymal process. The baseline interstitial pattern could potentially mask early edema or infiltrate. Enlarged cardiac silhouette without vascular engorgement. Pattern matches comparison. Allergies zolpidem tartrate [From Ambien] Allergy (Intermediate, Verified 10/17/16 23:08) Itching/Hives/Rash codeine [Codeine] Allergy (Verified 10/17/16 23:08) Hives fluphenazine enanthate [From Prolixin] Allergy (Verified 10/17/16 23:08) ARM NUMBNESS fluphenazine HCl [From Prolixin] Allergy (Verified 10/17/16 23:08) ARM NUMBNESS guaifenesin [From Prolex D] Allergy (Verified 10/17/16 23:08) Hives lisinopril Allergy (Verified 04/21/17 10:26) Anaphylaxis morphine Allergy (Verified 10/01/20 10:03) Itching Penicillins Allergy (Verified 10/17/16 23:08) Hives phenylephrine HCl [From Prolex D] Allergy (Verified 10/17/16 23:08) Hives nitrofurantoin Adverse Reaction (Verified 08/07/17 23:41) liver failure Home Medications: Calcium Acetate [Phoslo*] 2 cap PO TIDWM 03/05/20 Calcium Acetate [Phoslo*] 667 mg PO SNACKS 03/05/20 Divalproex Sodium [Divalproex Sodium ER] 500 mg PO BID 03/05/20 Linagliptin [Tradjenta] 5 mg PO DAILY 03/05/20 Sertraline [Zoloft*] 50 mg PO DAILY 03/05/20 Trazodone HCl 150 mg PO BEDTIME PRN PRN 03/05/20 Pantoprazole Sodium [Protonix] 1 tab PO DAILY 30 Days #30 tablet. 03/06/20 Gabapentin 1 tab PO BID 07/22/20 Metoprolol Succinate 25 mg PO DAILY 07/22/20 Pravastatin Sodium 1 tab PO DAILY 07/22/20 Doxazosin [Cardura*] 4 mg PO BEDTIME 09/30/20 Folic Acid/Vit B Complex and C [Dialyvite 800 Chewable Wafer] 1 tab PO DAILY 09/30/20 Furosemide [Lasix*] 40 mg PO BID 09/30/20 Metoclopramide [Reglan*] 5 ml PO TID 30 Days #45 ucup 10/01/20 Ondansetron [Zofran (Odt)*] 4 mg PO Q8H PRN 14 Days #30 tab 10/01/20 Ascorbate Calcium [Vitamin C] 500 mg PO TID #90 tablet 10/28/20 Sucralfate [Carafate*] 1 gm PO ACHS #90 tab 10/28/20 Zinc Sulfate [Zinc Sulfate*] 220 mg PO DAILY #30 cap 10/28/20 Calcitrol [Rocaltrol*] 0.5 mcg PO DAILY #30 cap 11/07/20 Hydralazine HCl 25 mg PO TID #90 tablet 11/07/20 Hydrocodone 10/APAP 325 [[place] 10/325*] 1 tab PO Q12H PRN #40 tab 11/07/20 Nepro Shake [Nepro*] 237 ml PO TID #60 can 11/07/20 Cholecalciferol (Vitamin D3) [Vitamin D 5,000 IU Cap*] 5,000 unit PO DAILY #30 cap 07/29/21 - Past Medical/Surgical History Diabetic: Yes -: DM Type 2 -: Seizure disorder -: ESRD on HD -: DM Gastroparesis -: DM Neuropathy -: Insomnia -: Obesity -: JAYLA -: Hypertension -: Post traumatic stress disorder -: Schizoaffective disorder -: CHF, diastolic -: I/D of the right elbow -: 2 previous C-sections -: Tubal ligation Psychosocial/ Personal History: She is , she has 2 children, she does not work. She lives with her boyfriend and daughter. - Family History Mother -: Hypertension, Diabetes, Cancer, Other (see notes) Notes: hypothyroid, asthma, breast cancer Father -: Diabetes, Cancer Notes: - stomach/ lung/ prostate cancer, diabetes - Social History Smoking Status: Current some day smoker Alcohol use: No CD- Drugs: No Caffeine use: Yes Review of Systems 10-point ROS is otherwise unremarkable Physical Examination - Physical Exam General: Alert, Oriented x3, Cooperative HEENT: Normocephalic, Mucous membr. moist/pink, EOMI Neck: Supple Respiratory: Clear to auscultation bilaterally, Normal air movement Cardiovascular: No edema, Regular rate/rhythm Gastrointestinal: Normal bowel sounds, Soft and benign, Tenderness (mild L abdominal tenderness) Musculoskeletal: No swelling, No contractures Integumentary: No rashes, No tenderness/swelling Neurological: Normal speech, Normal tone, Normal affect Lymphatics: No axilla or inguinal lymphadenopathy - Studies Laboratory Data (last 24 hrs) 02/17/21 06:58: PT 12.6 H, INR 1.09 02/17/21 06:58: WBC 4.80, Hgb 8.6 L, Hct 26.2 L, Plt Count 152 02/17/21 06:58: Sodium 140, Potassium 5.7 H*, BUN 61 H, Creatinine 8.95 H*, Glucose 108 H, Magnesium 2.0, Total Bilirubin 0.7, AST 27, ALT 16, Alkaline Phosphatase 50 Assessment and Plan - Problems (Diagnosis) (1) Abdominal pain Onset Date: 01/11/17 Current Visit: Yes Status: Acute Qualifiers: Abdominal location: lower abdomen, unspecified Qualified Code(s): R10.30 - Lower abdominal pain, unspecified (2) Chest pain Onset Date: 08/09/17 Current Visit: Yes Status: Acute (3) Gastroparesis Current Visit: No Status: Acute (4) Hyperkalemia Current Visit: Yes Status: Acute (5) Diabetic gastroparesis Onset Date: 10/19/16 Current Visit: Yes Status: Chronic (6) End stage renal disease on dialysis Current Visit: Yes Status: Chronic - Plan Nephrology consulted for dialysis to treat hyperkalemia Monitor BMP Monitor cardiac enzymes and telemetry IV reglan for gastroparesis PPI and sucralate for possible gastritis. Pt with a history of peptic ulcer disease Accuchecks and SSI Anticipate clinical improvement over next 24 hours - Advance Directives Does patient have a Living Will: Yes Does patient have a Durable POA for Healthcare: Yes - Code Status/Comfort Care Code Status Assessed: Yes (full) Time Spent Managing Pts Care (In Minutes): 70
[2021-02-17] MEDS: INSULIN -REGULAR HUMAN 50 UNIT/0.5 ML ML SQ SCH ×3 (15:54→21:00)
[2021-02-17] MEDS: HYDRALAZINE HCL 20 MG/ML VIAL IV PRN (16:05)
[2021-02-17] MEDS ORDERED: FENTANYL CITR 100 MCG/2 ML IV ONE (16:38)
[2021-02-17] MEDS: METOCLOPRAMIDE 10 MG/2mL INJ IV PRN (17:15)
[2021-02-17] MEDS: ONDANSETRON 4 MG/2 ML VIAL IV PRN (17:15)
[2021-02-17 17:16] LABS: Troponin I < 0.02 ng/mL (0.0-0.045)
[2021-02-17] MEDS: SUCRALFATE 1 GM TABLET PO SCH ×2 (17:17→22:30)
[2021-02-17] MEDS: HYDRALAZINE HCL 25 MG TABLET PO SCH ×2 (17:17→21:00)
[2021-02-17] MEDS: HEPARIN 5000 UNIT/ML 1 ML VIAL SQ SCH (17:18)
[2021-02-17] MEDS: METOPROLOL XL 50 MG TAB PO SCH (17:18)
[2021-02-17] MEDS ORDERED: DOXAZOSIN 2 MG TAB ONE ×2 (17:20→22:45)
[2021-02-17 17:29] VITALS: BMI 28.5
[2021-02-17] MEDS ORDERED: HYDROMORPHONE HCL 1 MG/ML INJ IV ONE (18:32)
[2021-02-17] MEDS ORDERED: PROMETHAZINE INJ 25 MG/ML AMP IV PRN (18:32)
[2021-02-17] MEDS ORDERED: PROMETHAZINE INJ 25 MG/ML AMP ONE (19:07)
[2021-02-17] MEDS ORDERED: LABETALOL 20 MG/4ML SYRINGE IV ONE (19:33)
[2021-02-17] MEDS ORDERED: DOXAZOSIN 4 MG TAB PO SCH (21:00)
[2021-02-18] MEDS: HEPARIN 5000 UNIT/ML 1 ML VIAL SQ SCH ×3 (00:55→17:00)
[2021-02-18] MEDS: HYDROMORPHONE HCL 1 MG/ML INJ IV PRN ×3 (02:52→17:13)
[2021-02-18] MEDS: METOCLOPRAMIDE 10 MG/2mL INJ IV PRN ×2 (02:55→17:13)
[2021-02-18] MEDS: HYDRALAZINE HCL 20 MG/ML VIAL IV PRN ×2 (03:51→17:13)
[2021-02-18 06:02] LABS: Absolute Lymphocytes (CBC) 0.8 K/uL (0.7-4.9); Basophils % 3.2 % (0-1.3); Hematocrit 26.5 % (36.0-45.0); Lymphocytes % 16.6 % (15.3-44.8); MPV 10.2 fL (7.6-11.3); RBC Red Blood Cell Count 2.84 M/uL (3.86-4.86)
[2021-02-18] MEDS ORDERED: PANTOPRAZOLE 40MG TABLET PO SCH (06:30)
[2021-02-18] MEDS: SOD POLYSTYREN SUL 15 GM/60 ML UCUP PO ONE ×2 (06:31→06:44)
[2021-02-18] MEDS: INSULIN -REGULAR HUMAN 50 UNIT/0.5 ML ML SQ SCH ×3 (07:30→16:30)
[2021-02-18 08:04] LABS: White Blood Cell Scan OK (OK)
[2021-02-18 08:05] LABS: Anisocytosis 3+; Blood Morphology Comment NOTED (NOT SEEN); Platelet Estimate ADEQ; Polychromasia 1+
[2021-02-18] MEDS ORDERED: CALCITROL 0.25 MCG CAP PO SCH (09:00)
[2021-02-18] MEDS: METOPROLOL XL 50 MG TAB PO SCH (09:02)
[2021-02-18] MEDS: HYDRALAZINE HCL 25 MG TABLET PO SCH ×2 (09:02→15:44)
[2021-02-18] MEDS: ONDANSETRON 4 MG/2 ML VIAL IV PRN ×2 (09:02→15:44)
[2021-02-18] MEDS: SUCRALFATE 1 GM TABLET PO SCH ×3 (09:02→15:44)
[2021-02-18 09:32] VITALS: BP 213/95; TEMP 97.7
[2021-02-18] MEDS ORDERED: EPOETIN ALFA 10,000 UNIT/ML VIAL IV SCH (10:00)
[2021-02-18 10:35] VITALS: O2SAT 99
--- NOTE | 2021-02-18 13:51 | PN ---
Date of Progress Note: 02/18/2021 Subjective: The patient is seen in the dialysis room on dialysis. We have been consulted to breanna sher dialysis. This is a dialysis note. Please also see the patient's flow sheets for dialysis. The patient is admitted to Room 206, but seen in the dialysis suite. Vitals are stable. Blood pressure somewhat improved down to 170-180 systolic, diastolic is around 80. Earlier blood pressure had been as high as 213/95. The patient has not had dialysis since last Wednesday. She was exposed to someon e few days back, who had COVID and had missed dialysis treatments and was advised to get a COVID test , therefore she came to the hospital. She otherwise is asymptomatic. Does not have any headache. N o vision changes. No nausea. No vomiting. Feels comfortable. Has a left arm AV fistula that is wo rking well. Dialysis is ongoing. The patient is seen on dialysis. Plan is to remove about 4 L of u ltrafiltration with a net of about 3.5 L. The patient seems to be tolerating this well. Blood flow is about 350, dialysate flow is about 70, 137 sodium, 35 bicarb, potassium of 2. The patient is tole rating this well. Objective: Lungs: Clear to auscultation. Abdomen: Soft. Extremities: Reveal trace edema. AV fistula on the left arm seems to be working well. Good bruit a nd good thrill. Assessment And Plan: Dialysis today. The patient with end-stage renal disease, hypertension, AV fis mally in the left arm, tolerating dialysis well. Please also see dialysis flow sheet. Once dialysis completed and the patient is stable, may be discharged home when deemed stable by hospitalist and fol low up with dialysis unit on Wednesday for her routine treatment. The patient has been advised that she has dialysis chair and knows how to get to the unit. Advised not to miss dialysis. We will add Cor eg 3.125 mg p.o. b.i.d., monitor blood pressure at home. She is on hydralazine 25 mg p.o. t.i.d., ca n take an extra pill each time if systolic blood pressure greater than 160. Advised to monitor blood p ressure at home and keep a record. /JOSEFINA Voice ID: [id number] Report ID: [id number]
--- NOTE | 2021-02-18 15:31 | P.DS ---
Admission Date: 02/17/21 Discharge Date: 02/18/21 Primary Care Provider: Dr. Morin Disposition: ROUTINE DISCHARGE Reason for Admission: chest pain, dialysis Consultations: nephrology - Dr. Talbot Procedures: CXR: FINDINGS: Lung volumes are low. No peripheral mass or consolidation identifiable. Interstitial pattern is not clearly different from comparison. Enlarged cardiac silhouette is again identified. No vascular engorgement. No measurable pleural effusion and no pneumothorax. No acute bony abnormality seen. No acute aortic findings suspected. IMPRESSION: No acute lung parenchymal process. The baseline interstitial pattern could potentially mask early edema or infiltrate. Enlarged cardiac silhouette without vascular engorgement. Pattern matches comparison. - Problems (1) Abdominal pain Onset Date: 01/11/17 Current Visit: Yes Status: Acute Qualifiers: Abdominal location: lower abdomen, unspecified Qualified Code(s): R10.30 - Lower abdominal pain, unspecified (2) Chest pain Onset Date: 08/09/17 Current Visit: Yes Status: Acute (3) Gastroparesis Current Visit: No Status: Acute (4) Hyperkalemia Current Visit: Yes Status: Acute (5) Diabetic gastroparesis Onset Date: 10/19/16 Current Visit: Yes Status: Chronic (6) End stage renal disease on dialysis Current Visit: Yes Status: Chronic Brief History of Present Illness: This is a 40 y/o F with CHF, gastroparesis, ESRD on dialysis MWF who presents with chest pain, abdominal pain, shortness of breath x 2 days. Her symptoms feel similar to when she misses her dialysis. She missed her dialysis last Wednesday because she needed a covid test due to recent exposure and was not able to get test scheduled until tomorrow. She reports that she coded twice on 01/21 during a endoscopy/colonoscopy at [facility]. Hospital Course: Patient admitted to the medical floor and underwent hemodialysis for hyperkalemia. Hyperkalemia resolved. Her symptoms resolved and blood pressure improved following dialysis. She had an episode of nausea and vomiting after dialysis that was resolved with zofran, reglan, and dilaudid. Patient deemed clinically stable for discharge. Vital Signs/Physical Exam: Temp Pulse Resp BP Pulse Ox 97.7 F 77 18 213/95 H 97 02/18/21 08:40 02/18/21 08:40 02/18/21 09:32 02/18/21 08:40 02/18/21 09:32 Laboratory Data at Discharge: WBC 4.60 K/uL (4.3-10.9) 02/18/21 05:35 Hgb 8.6 g/dL (12.0-15.0) L 02/18/21 05:35 Hct 26.5 % (36.0-45.0) L 02/18/21 05:35 Plt Count 152 K/uL (152-406) 02/18/21 05:35 PT 12.6 SECONDS (9.5-12.5) H 02/17/21 06:58 INR 1.09 02/17/21 06:58 Sodium 142 mmol/L (136-145) 02/18/21 05:35 Potassium 6.0 mmol/L (3.5-5.1) H* 02/18/21 05:35 BUN 66 mg/dL (7-18) H 02/18/21 05:35 Creatinine 10.00 mg/dL (0.55-1.3) H* D 02/18/21 05:35 Glucose 90 mg/dL (74-106) 02/18/21 05:35 Magnesium 2.0 mg/dL (1.8-2.4) 02/17/21 06:58 Total Bilirubin 0.7 mg/dL (0.2-1.0) 02/17/21 06:58 AST 27 U/L (15-37) 02/17/21 06:58 ALT 16 U/L (12-78) 02/17/21 06:58 Alkaline Phosphatase 50 U/L (45-117) 02/17/21 06:58 Troponin I < 0.02 ng/mL (0.0-0.045) 02/17/21 22:07 Home Medications: Calcium Acetate [Phoslo*] 2 cap PO TIDWM 03/05/20 Calcium Acetate [Phoslo*] 667 mg PO SNACKS 03/05/20 Divalproex Sodium [Divalproex Sodium ER] 500 mg PO BID 03/05/20 Linagliptin [Tradjenta] 5 mg PO DAILY 03/05/20 Sertraline [Zoloft*] 50 mg PO DAILY 03/05/20 Trazodone HCl 150 mg PO BEDTIME PRN PRN 03/05/20 Pantoprazole Sodium [Protonix] 1 tab PO DAILY 30 Days #30 tablet. 03/06/20 Gabapentin 1 tab PO BID 07/22/20 Metoprolol Succinate 25 mg PO DAILY 07/22/20 Pravastatin Sodium 1 tab PO DAILY 07/22/20 Doxazosin [Cardura*] 4 mg PO BEDTIME 09/30/20 Folic Acid/Vit B Complex and C [Dialyvite 800 Chewable Wafer] 1 tab PO DAILY 09/30/20 Furosemide [Lasix*] 40 mg PO BID 09/30/20 Metoclopramide [Reglan*] 5 ml PO TID 30 Days #45 ucup 10/01/20 Ondansetron [Zofran (Odt)*] 4 mg PO Q8H PRN 14 Days #30 tab 10/01/20 Ascorbate Calcium [Vitamin C] 500 mg PO TID #90 tablet 10/28/20 Sucralfate [Carafate*] 1 gm PO ACHS #90 tab 10/28/20 Zinc Sulfate [Zinc Sulfate*] 220 mg PO DAILY #30 cap 10/28/20 Calcitrol [Rocaltrol*] 0.5 mcg PO DAILY #30 cap 11/07/20 Hydralazine HCl 25 mg PO TID #90 tablet 11/07/20 Hydrocodone 10/APAP 325 [[place] 10/325*] 1 tab PO Q12H PRN #40 tab 11/07/20 Nepro Shake [Nepro*] 237 ml PO TID #60 can 11/07/20 Cholecalciferol (Vitamin D3) [Vitamin D 5,000 IU Cap*] 5,000 unit PO DAILY #30 cap 01/16/21 Physician Discharge Instructions: PROBLEM: Abdominal pain, Chest pain GOAL: Clear understanding of disease process INSTRUCTIONS: - Your symptoms were found to be caused by missing dialysis. Your symptoms have resolved from dialysis. - Follow up with your primary care provider in 1 week. - Follow up in dialysis tomorrow and continue to follow your schedule of MWF. - Return to the ER if your symptoms worsen. Diet: Renal Activity: As tolerated IMMUNIZATION Influenza Vaccine Indicated: Influenza Vaccine Given: Date Given: Pneumonia Vaccine Indicated: No Pneumonia Vaccine Given: Date Given: Diet: Renal Followup: Jose Miguel Morin DO [ACTIVE - CAN ADMIT] -
--- NOTE | 2021-02-18 17:35 | P.PN ---
Subjective Date of Service: 02/18/21 Primary Care Provider: Dr. Morin Chief Complaint: abdominal pain Subjective: Improving (feeling better immediately after dialysis but then later started having nausea and abdominal pain. states she feels like this when her gastroparesis acts up) <Shey Sainz - Last Filed: 02/18/21 17:24> Date of Service: 02/18/21 <Hugh Stallworth - Last Filed: 02/18/21 18:01> Review of Systems 10-point ROS is otherwise unremarkable <Shey Sainz - Last Filed: 02/18/21 17:24> Physical Examination - Vital Signs Temperature: 97.7 F Blood Pressure: 213/95 Pulse: 77 Respirations: 18 Pulse Ox (%): 97 <Shey Sainz - Last Filed: 02/18/21 17:24> Assessment And Plan - Current Problems (Diagnosis) (1) Abdominal pain Onset Date: 01/11/17 Current Visit: Yes Status: Acute Qualifiers: Abdominal location: lower abdomen, unspecified Qualified Code(s): R10.30 - Lower abdominal pain, unspecified (2) Gastroparesis Current Visit: No Status: Acute (3) Chest pain Onset Date: 08/09/17 Current Visit: Yes Status: Acute (4) Hyperkalemia Current Visit: Yes Status: Acute (5) Diabetic gastroparesis Onset Date: 10/19/16 Current Visit: Yes Status: Chronic (6) End stage renal disease on dialysis Current Visit: Yes Status: Chronic - Plan Underwent dialysis with Dr. Talbot today Monitor BMP Monitor telemetry Gastroparesis flare up after dialysis - IV reglan Pain control PPI and sucralate for possible gastritis. Pt with a history of peptic ulcer disease Accuchecks and SSI Plan for discharge tomorrow if pain is controlled and tolerating diet Code: full DVT prophylaxis: heparin <Shey Sainz - Last Filed: 02/18/21 17:24> - Plan Patient seen and examined after dialysis. Reported feeling much better, asking for discharge home <Hugh Stallworth - Last Filed: 02/18/21 18:01>
--- NOTE | 2021-02-18 17:57 | P.DS ---
Admission Date: 02/17/21 Discharge Date: 02/18/21 Primary Care Provider: Dr. Morin Disposition: ROUTINE DISCHARGE Reason for Admission: abdominal pain, hyperkalemia Consultations: nephrology - Dr. Talbot Procedures: CXR: FINDINGS: Lung volumes are low. No peripheral mass or consolidation identifiable. Interstitial pattern is not clearly different from comparison. Enlarged cardiac silhouette is again identified. No vascular engorgement. No measurable pleural effusion and no pneumothorax. No acute bony abnormality seen. No acute aortic findings suspected. IMPRESSION: No acute lung parenchymal process. The baseline interstitial pattern could potentially mask early edema or infiltrate. Enlarged cardiac silhouette without vascular engorgement. Pattern matches comparison. - Problems (1) Abdominal pain Onset Date: 01/11/17 Current Visit: Yes Status: Acute Qualifiers: Abdominal location: lower abdomen, unspecified Qualified Code(s): R10.30 - Lower abdominal pain, unspecified (2) Gastroparesis Current Visit: No Status: Acute (3) Chest pain Onset Date: 08/09/17 Current Visit: Yes Status: Acute (4) Hyperkalemia Current Visit: Yes Status: Acute (5) Diabetic gastroparesis Onset Date: 10/19/16 Current Visit: Yes Status: Chronic (6) End stage renal disease on dialysis Current Visit: Yes Status: Chronic Brief History of Present Illness: 40 y/o F with CHF, gastroparesis, ESRD on dialysis MWF who presents with chest pain, abdominal pain, shortness of breath x 2 days. Her symptoms feel similar to when she misses her dialysis. She missed her last dialysis appointment because she needed a covid test due to recent exposure and was not able to get test scheduled until a few days later. Hospital Course: Pt was admitted to the medical floor and underwent hemodialysis for hyperkalemia with Dr. Talbot. Hyperkalemia resolved. Her symptoms and blood pressure have improved following dialysis. She did have an episode of nausea and abdominal pain that was relieved with zofran, reglan, dilaudid. She is deemed clinically stable for discharge. Vital Signs/Physical Exam: Temp Pulse Resp BP Pulse Ox 97.7 F 77 18 213/95 H 97 02/18/21 17:36 02/18/21 17:36 02/18/21 17:36 02/18/21 17:36 02/18/21 17:36 Laboratory Data at Discharge: WBC 4.60 K/uL (4.3-10.9) 02/18/21 05:35 Hgb 8.6 g/dL (12.0-15.0) L 02/18/21 05:35 Hct 26.5 % (36.0-45.0) L 02/18/21 05:35 Plt Count 152 K/uL (152-406) 02/18/21 05:35 PT 12.6 SECONDS (9.5-12.5) H 02/17/21 06:58 INR 1.09 02/17/21 06:58 Sodium 142 mmol/L (136-145) 02/18/21 05:35 Potassium 6.0 mmol/L (3.5-5.1) H* 02/18/21 05:35 BUN 66 mg/dL (7-18) H 02/18/21 05:35 Creatinine 10.00 mg/dL (0.55-1.3) H* D 02/18/21 05:35 Glucose 90 mg/dL (74-106) 02/18/21 05:35 Magnesium 2.0 mg/dL (1.8-2.4) 02/17/21 06:58 Total Bilirubin 0.7 mg/dL (0.2-1.0) 02/17/21 06:58 AST 27 U/L (15-37) 02/17/21 06:58 ALT 16 U/L (12-78) 02/17/21 06:58 Alkaline Phosphatase 50 U/L (45-117) 02/17/21 06:58 Troponin I < 0.02 ng/mL (0.0-0.045) 02/17/21 22:07 Home Medications: Calcium Acetate [Phoslo*] 2 cap PO TIDWM 03/05/20 Calcium Acetate [Phoslo*] 667 mg PO SNACKS 03/05/20 Divalproex Sodium [Divalproex Sodium ER] 500 mg PO BID 03/05/20 Linagliptin [Tradjenta] 5 mg PO DAILY 03/05/20 Sertraline [Zoloft*] 50 mg PO DAILY 03/05/20 Trazodone HCl 150 mg PO BEDTIME PRN PRN 03/05/20 Pantoprazole Sodium [Protonix] 1 tab PO DAILY 30 Days #30 tablet. 03/06/20 Gabapentin 1 tab PO BID 07/22/20 Metoprolol Succinate 25 mg PO DAILY 07/22/20 Pravastatin Sodium 1 tab PO DAILY 07/22/20 Doxazosin [Cardura*] 4 mg PO BEDTIME 09/30/20 Folic Acid/Vit B Complex and C [Dialyvite 800 Chewable Wafer] 1 tab PO DAILY 09/30/20 Furosemide [Lasix*] 40 mg PO BID 09/30/20 Metoclopramide [Reglan*] 5 ml PO TID 30 Days #45 ucup 10/01/20 Ondansetron [Zofran (Odt)*] 4 mg PO Q8H PRN 14 Days #30 tab 10/01/20 Ascorbate Calcium [Vitamin C] 500 mg PO TID #90 tablet 10/28/20 Sucralfate [Carafate*] 1 gm PO ACHS #90 tab 10/28/20 Zinc Sulfate [Zinc Sulfate*] 220 mg PO DAILY #30 cap 10/28/20 Calcitrol [Rocaltrol*] 0.5 mcg PO DAILY #30 cap 11/07/20 Hydralazine HCl 25 mg PO TID #90 tablet 11/07/20 Hydrocodone 10/APAP 325 [[place] 10/325*] 1 tab PO Q12H PRN #40 tab 11/07/20 Nepro Shake [Nepro*] 237 ml PO TID #60 can 11/07/20 Cholecalciferol (Vitamin D3) [Vitamin D 5,000 IU Cap*] 5,000 unit PO DAILY #30 cap 01/16/21 Physician Discharge Instructions: PROBLEM: Abdominal pain, Chest pain GOAL: Clear understanding of disease process INSTRUCTIONS: - Your symptoms were found to be caused by missing dialysis. Your symptoms have resolved from dialysis. - Follow up with your primary care provider in 1 week. - Follow up in dialysis tomorrow and continue to follow your schedule of MWF. - Return to the ER if your symptoms worsen. Diet: Renal Activity: As tolerated IMMUNIZATION Influenza Vaccine Indicated: Influenza Vaccine Given: Date Given: Pneumonia Vaccine Indicated: No Pneumonia Vaccine Given: Date Given: Diet: Renal Followup: Jose Miguel Morin DO [ACTIVE - CAN ADMIT] -
[2021-02-18] MEDS ORDERED: carvediloL 3.125 MG TAB PO SCH (18:00)
== END 2021-02-18 19:54 | disposition home or self-care (01) ==
LOC: ER 05:39 → ERHOLD 10:31 → 2ND 15:14
PROVIDERS: ADMIT Internal Medicine; ATTEND Hospitalist
DX: E87.5 Hyperkalemia (principal); I16.0 Hypertensive urgency; I13.2 Hypertensive heart and chronic kidney disease with heart failure and with stage 5 chronic kidney disease, or end stage renal disease; E11.22 Type 2 diabetes mellitus with diabetic chronic kidney disease; N18.6 End stage renal disease; I50.30 Unspecified diastolic (congestive) heart failure; Z99.2 Dependence on renal dialysis; Z91.15 Patient's noncompliance with renal dialysis; K31.84 Gastroparesis; E11.43 Type 2 diabetes mellitus with diabetic autonomic (poly)neuropathy; G40.909 Epilepsy, unspecified, not intractable, without status epilepticus; G47.00 Insomnia, unspecified; G47.33 Obstructive sleep apnea (adult) (pediatric); E66.9 Obesity, unspecified; Z68.28 Body mass index [BMI] 28.0-28.9, adult; F43.10 Post-traumatic stress disorder, unspecified; F25.9 Schizoaffective disorder, unspecified; F17.210 Nicotine dependence, cigarettes, uncomplicated; Z20.822 Contact with and (suspected) exposure to COVID-19; Z88.6 Allergy status to analgesic agent; Z88.0 Allergy status to penicillin; Z88.8 Allergy status to other drugs, medicaments and biological substances; Z87.11 Personal history of peptic ulcer disease; Z98.51 Tubal ligation status; Z82.49 Family history of ischemic heart disease and other diseases of the circulatory system; Z83.3 Family history of diabetes mellitus; Z82.5 Family history of asthma and other chronic lower respiratory diseases; Z80.3 Family history of malignant neoplasm of breast; Z80.0 Family history of malignant neoplasm of digestive organs; Z80.1 Family history of malignant neoplasm of trachea, bronchus and lung; Z80.42 Family history of malignant neoplasm of prostate
CPT/HCPCS: 93005; 85025 ×2; 80048 ×2; 36415; 83735; 85610; 82947 ×4; 80076; 84443; 84484 ×3; 84439; 83880; 71045; 90935; 96375; 96374; 99285; U0003; J0360 ×3; J2765 ×3; J2550; J1644 ×4; J3010 ×2; J1170 ×4; Q5105; J2405 ×4; G0378 ×3

== ENCOUNTER 2021-03-31 11:37 | Emergency (ER) | payer OTHER ==
--- NOTE | 2021-03-31 12:20 | RAD REPORT ---
EXAM DESCRIPTION: CT - Ct Stroke Brain Wo Cont - 03/31/2021 11:56 am CLINICAL HISTORY: Facial numbness COMPARISON: 2017 TECHNIQUE: Computed axial tomography of the head was obtained. All CT scans are performed using dose optimization technique as appropriate and may include automated exposure control or mA/KV adjustment according to patient size. FINDINGS: An intracranial bleed is not seen . The ventricles are normal in caliber. No extra-axial fluid collection is noted. Left eye prosthesis Fluid within the sinuses/ mastoids is not seen. IMPRESSION: No acute intracranial abnormality is seen. If patient's symptoms persist MRI of the bra in would be recommended. Dr Andrew of the emergency room was notified at 12:01 p.m. March 31, 2021
[2021-03-31] MEDS ORDERED: ALTEPLASE 0 ML IV ONE (12:32)
--- NOTE | 2021-03-31 12:34 | RAD REPORT ---
EXAM DESCRIPTION: RAD - Chest Single View - 03/31/2021 12:03 pm CLINICAL HISTORY: Facial numbness, code stroke chest film COMPARISON: February 17 TECHNIQUE: AP portable chest image was obtained 03/31/2021 12:03 pm . FINDINGS: Lungs are clear. Heart and vasculature are normal. No measurable pleural effusion and no p neumothorax. No acute bony abnormality seen. No acute aortic findings. Double-lumen right-sided dialy sis catheter has been placed since the prior imaging. There has been additional stenting 2 right-side d subclavian and axillary vasculature since the prior study. IMPRESSION: No acute cardiopulmonary process.
[2021-03-31] MEDS ORDERED: METOPROLOL TARTRATE 5 MG/5 ML INJ IV ONE (12:37)
[2021-03-31 16:58] LABS: Potassium 3.8 mmol/L (3.5-5.1)
[2021-03-31 17:08] LABS: Protime INR 0.94
--- NOTE | 2021-03-31 17:08 | RAD REPORT ---
EXAM DESCRIPTION: MRI - Brain Wo Cont - 03/31/2021 4:53 pm CLINICAL HISTORY: Numbness COMPARISON: Head CT March 31, 2021 TECHNIQUE: Axial, sagittal, and coronal magnetic resonance images of the brain were obtained. FINDINGS: No significant abnormal signal within the brain is noted. Diffusion-weighted/ADC mapping does not reveal evidence of acute infarction. The ventricles are normal caliber. An extra-axial fluid collection is not noted. Fluid within the sinuses/mastoids is not seen IMPRESSION: No acute intracranial abnormality noted
[2021-03-31 17:09] LABS: Absolute Lymphocytes (CBC) 1.6 K/uL (0.7-4.9); Basophils % 1.2 % (0-1.3); Hematocrit 28.8 % (36.0-45.0); Lymphocytes % 27.2 % (15.3-44.8); MPV 9.3 fL (7.6-11.3); RBC Red Blood Cell Count 3.28 M/uL (3.86-4.86)
--- NOTE | 2021-03-31 17:55 | EDPHYS ---
Physician Documentation [facility] Name: Cathi Zaldivar Age: 40 yrs Sex: Female : 1980 Arrival Date: 03/31/2021 Time: 11:38 Bed 13 Private MD: ED Physician Joe Andrew HPI: 03/31 12:19 This 40 yrs old Female presents to ER via Wheelchair with complaints of Right kdr sided weakness and tingling. 12:19 The patient's problem is reported as a facial droop, on right, weakness, in the right kdr upper extremity, in the right lower extremity, in the right side of face. Onset: The symptoms/episode began/occurred today, at 10:30. Duration: This was a single incident. Context: the episode(s) was witnessed, by family, occurred at home, occurred while the patient was at rest. The symptoms are alleviated by nothing. The symptoms are aggravated by nothing. Associated signs and symptoms: Pertinent positives: Right arm and leg pain. Severity of symptoms: Pain is currently a 2 / 10. Historical: - Allergies: 11:48 ambien; aa5 11:48 Codeine; aa5 11:48 GUAIFENESIN; aa5 11:48 Ibuprofen; aa5 11:48 Lisinopril; aa5 11:48 Morphine; aa5 11:48 Nitrofurantoin Macrocrystal; aa5 11:48 PENICILLINS; aa5 11:48 Prolixin; aa5 11:48 zolpidem tartrate; aa5 - PMHx: 11:48 "mental problems"; CHF; chronic kidney disease; covid 19; cyclic vomiting syndrome; aa5 Diabetes - NIDDM; Dialysis; m-w-f; ENCEPHALOPATHY; Gastroparesis; HD-TTHSat; Hypertension; ibs; liver failure; PERIPHERAL NEUROPATHY; Seizures; - PSHx: 11:48 section; aa5 - Immunization history:: Client reports having NOT received the Covid vaccine. - Social history:: Smoking status: Patient reports the use of cigarette tobacco products, smokes one-half pack cigarettes per day. ROS: 12:19 Constitutional: Negative for fever, chills, and weight loss, Eyes: Negative for injury, kdr pain, redness, and discharge, ENT: Negative for injury, pain, and discharge, Neck: Negative for injury, pain, and swelling, Cardiovascular: Negative for chest pain, palpitations, and edema, Respiratory: Negative for shortness of breath, cough, wheezing, and pleuritic chest pain, Abdomen/GI: Negative for abdominal pain, nausea, vomiting, diarrhea, and constipation, Back: Negative for injury and pain, : Negative for injury, bleeding, discharge, and swelling, MS/Extremity: Negative for injury and deformity, Skin: Negative for injury, rash, and discoloration, Psych: Negative for depression, anxiety, suicide ideation, homicidal ideation, and hallucinations, Allergy/Immunology: Negative for hives, rash, and allergies, Endocrine: Negative for neck swelling, polydipsia, polyuria, polyphagia, and marked weight changes, Hematologic/Lymphatic: Negative for swollen nodes, abnormal bleeding, and unusual bruising. 12:19 Neuro: Positive for weakness, Right, face, arm, leg. Exam: 11:56 Radiologist reports: Negative CT per Dr. Fan kdr 12:08 ECG was reviewed by the Attending Physician. kdr 12:19 Constitutional: This is a well developed, well nourished patient who is awake, alert, kdr and in no acute distress. Head/Face: Normocephalic, atraumatic. There is slight right facial droop Eyes: Pupils equal round and reactive to light, extra-ocular motions intact. Lids and lashes normal. Conjunctiva and sclera are non-icteric and not injected. Cornea within normal limits. Periorbital areas with no swelling, redness, or edema. Neck: Trachea midline, no thyromegaly or masses palpated, and no cervical lymphadenopathy. Supple, full range of motion without nuchal rigidity, or vertebral point tenderness. No Meningismus. Chest/axilla: Normal chest wall appearance and motion. Nontender with no deformity. No lesions are appreciated. Cardiovascular: Regular rate and rhythm with a normal S1 and S2. No gallops, murmurs, or rubs. Normal PMI, no JVD. No pulse deficits. Respiratory: Lungs have equal breath sounds bilaterally, clear to auscultation and percussion. No rales, rhonchi or wheezes noted. No increased work of breathing, no retractions or nasal flaring. Abdomen/GI: Soft, non-tender, with normal bowel sounds. No distension or tympany. No guarding or rebound. No evidence of tenderness throughout. Back: No spinal tenderness. No costovertebral tenderness. Full range of motion. Psych: Awake, alert, with orientation to person, place and time. Behavior, mood, and affect are within normal limits. 12:19 Neuro: Orientation: is normal, Mentation: is normal, Cranial nerves: Right lower facial weakness,, Motor: moves all fours, strength is 5/5 in the left arm and left leg, Strength is 3/5 in the right arm and right leg. Vital Signs: 11:42 BP 185 / 100; Pulse 71; Resp 16 S; Temp 97.3(TE); Pulse Ox 100% on R/A; aa5 12:10 BP 213 / 115; Pulse 65; Resp 13; Pulse Ox 100% on R/A; Pain 5/10; tw5 13:03 BP 185 / 101; Pulse 65; Resp 12; Pulse Ox 100% on R/A; tw5 13:30 BP 205 / 110; Pulse 69; Resp 13; Pulse Ox 100% on R/A; tw5 15:03 BP 189 / 98; Pulse 68; Resp 12; Pulse Ox 100% on R/A; Pain 6/10; tw5 15:34 BP 162 / 73; Pulse 67; Resp 16; Pulse Ox 100% ; tw5 18:16 BP 189 / 103; Pulse 65; Resp 14; Pulse Ox 100% on R/A; Pain 6/10; tw5 NIH Stroke Scale Scores: 12:02 NIHSS Score: 5 kdr 12:10 NIHSS Score: 6 tw5 15:03 NIHSS Score: 0 tw5 MDM: 12:05 Data reviewed: vital signs, nurses notes. Physician consultation: Umberto Martinez MD kdr was called at 12:05, was contacted at 12:05, regarding consult, Reviewed the patient history (on oral anticoagulants) and physical exam with Dr. Martinez. He recommended that given the negative head CT, she received TPA.. 14:57 ED course: The patient is well-known to the ED. She is very difficult to obtain blood kdr on. She has very poor peripheral IV access. The initial CT was noted to be negative. However she was noted to be to hypertensive to be given the TPA immediately. Immediate attempts were made to establish alternate accesses. These included a midline on the left forearm and a central line in the right groin. Both of these attempts were unsuccessful. Specifically with regard to the right femoral central line, the patient was noted to bleed profusely during the establishment of the line. Given this observance, it was decided to discontinue attempting IV access at this time. Further given this apparent coagulopathy, it was determined that she should not be given tPA at this time. I discussed the case with Dr. Martinez and he agreed that further intervention at this facility was not necessarily appropriate at this time. On reevaluation of the patient, she was noted to have significant improvement of all of her symptoms. This included the strength in her right leg and right arm. There is almost no deficit. Further her facial asymmetry with markedly improved given these findings, I discussed the options with the patient. These options included transfer to [facility] in the [facility] for further evaluation by neurology or possibly remaining in this facility since it was unlikely that any intervention would be done at this time. I also offered MRI of her head to further evaluate for possible stroke. The patient agreed to this short-term plan and upon completion of the MRI, we would rediscuss the options and reevaluate her symptoms.. 17:53 Patient medically screened. kdr 03/31 11:45 Order name: Basic Metabolic Panel; Complete Time: 17:12 kdr 03/31 11:45 Order name: CBC with Diff; Complete Time: 17:12 kdr 03/31 11:45 Order name: Protime (+inr); Complete Time: 17:12 kdr 03/31 11:45 Order name: Ptt, Activated; Complete Time: 17:12 kdr 03/31 12:00 Order name: Glucose, Ancillary Testing; Complete Time: 14:55 EDMS 03/31 11:45 Order name: CT Stroke Brain w/o Contrast; Complete Time: 14:55 kdr 03/31 11:45 Order name: Stroke CXR 1 View; Complete Time: 14:55 kdr 03/31 11:45 Order name: EKG; Complete Time: 11:45 kdr 03/31 13:17 Order name: MRI - Brain Wo Cont; Complete Time: 17:12 kdr 03/31 18:16 Order name: Carotid Artery Bilateral US la1 03/31 19:05 Order name: SARS-COV-2 RT PCR EDMS 03/31 11:45 Order name: Accucheck; Complete Time: 11:52 kdr 03/31 11:45 Order name: Cardiac monitoring; Complete Time: 11:52 kdr 03/31 11:45 Order name: EKG - Nurse/Tech; Complete Time: 11:52 kdr 03/31 11:45 Order name: NPO; Complete Time: 11:52 kdr 03/31 11:45 Order name: O2 Per Protocol; Complete Time: 11:52 kdr 03/31 11:45 Order name: O2 Sat Monitoring; Complete Time: 11:52 kdr 03/31 11:45 Order name: Stroke Swallow Screen; Complete Time: 13:13 kdr 03/31 17:36 Order name: Diet Ada 1800 Dario; Complete Time: 17:36 iw EC:08 Rate is 71 beats/min. Rhythm is regular, Sinus Rhythm with No ectopy. QRS [place] is kdr Normal. OR interval is normal. QRS interval is normal. Clinical impression: NSR w/ Non-specific ST/T Changes. Administered Medications: 13:13 Not Given (Physician Discretion): ACTIvase (alteplase) IV Thrombolytics at calculated tw5 rate Per protocol over 60 mins; 0.9 mg/kg IV (Max: 90 mg); give 10% of the total dose as an IV bolus over 1 minute, then give the remaining 90% as an IV infusion over 60 minutes 13:13 Not Given (Physician Discretion): Cardizem (diltiazem) 5 mg/hr IV at calculated rate tw5 continuous; (standard dilution 125 mg diltiazem mixed in 100mL NS; final concentration 1mg/mL) Disposition Summary: 03/31/21 19:57 Left Against Medical Advice Location: Home(03/31/21 19:57) jr8 Problem: new(03/31/21 19:57) jr8 Symptoms: are resolved(03/31/21 19:57) jr8 Condition: Stable(03/31/21 19:57) jr8 Diagnosis - Transient cerebral ischemic attack, unspecified bb Followup: jr8 - With: Private Physician - When: 1 - 2 days - Reason: Recheck today's complaints, Continuance of care, Re-evaluation by your physician NIH Stroke Scale - NIH Stroke Score Date: 03/31/2021 Time: 12:02 Total Score = 5 1a. Level of Consciousness (LOC) - 0(Alert) 1b. Level of Consciousness (LOC) (Month \\T\\ Age) - 0(Both) 1c. LOC Commands (Open \\T\\ Closes Eyes/Adult Ministries Director) - 0(Both) 2. Best Gaze (Lateral Gaze Paresis) - 0(Normal) 3. Visual Field Loss - 0(No visual loss) 4. Facial Palsy - 1(Minor Paralysis) 5a. Left Arm: Motor (10-second hold) - 0(No drift) 5b. Right Arm: Motor (10-second hold) - 1(Drift) 6a. Left Leg: Motor (5-second hold - always test supine) - 0(No drift) 6b. Right Leg: Motor (5-second hold - always test supine) - 2(Drift, some effort against gravity) 7. Limb Ataxia (finger/nose \\T\\ heel/mcdermott - test with eyes open) - 1(Present in one limb) 8. Sensory Loss (pinprick arms/legs/face) - 0(Normal) 9. Best Language: Aphasia (description/naming/reading) - 0(No aphasia) 10. Dysarthria (speech clarity - read or repeat words) - 0(Normal) 11. Extinction and Inattention (visual/tactile/auditory/spatial/personal) - 0(No abnormality) Initials: kdr NIH Stroke Scale - NIH Stroke Score Date: 03/31/2021 Time: 12:10 Total Score = 6 1a. Level of Consciousness (LOC) - 0(Alert) 1b. Level of Consciousness (LOC) (Month \\T\\ Age) - 0(Both) 1c. LOC Commands (Open \\T\\ Closes Eyes/Adult Ministries Director) - 0(Both) 2. Best Gaze (Lateral Gaze Paresis) - 0(Normal) 3. Visual Field Loss - 0(No visual loss) 4. Facial Palsy - 1(Minor Paralysis) 5a. Left Arm: Motor (10-second hold) - 0(No drift) 5b. Right Arm: Motor (10-second hold) - 1(Drift) 6a. Left Leg: Motor (5-second hold - always test supine) - 0(No drift) 6b. Right Leg: Motor (5-second hold - always test supine) - 2(Drift, some effort against gravity) 7. Limb Ataxia (finger/nose \\T\\ heel/mcdermott - test with eyes open) - 0(Absent) 8. Sensory Loss (pinprick arms/legs/face) - 1(Mild to moderate loss) 9. Best Language: Aphasia (description/naming/reading) - 0(No aphasia) 10. Dysarthria (speech clarity - read or repeat words) - 0(Normal) 11. Extinction and Inattention (visual/tactile/auditory/spatial/personal) - 1(Present) Initials: tw5 NIH Stroke Scale - NIH Stroke Score Date: 03/31/2021 Time: 15:03 Total Score = 0 1a. Level of Consciousness (LOC) - 0(Alert) 1b. Level of Consciousness (LOC) (Month \\T\\ Age) - 0(Both) 1c. LOC Commands (Open \\T\\ Closes Eyes/Adult Ministries Director) - 0(Both) 2. Best Gaze (Lateral Gaze Paresis) - 0(Normal) 3. Visual Field Loss - 0(No visual loss) 4. Facial Palsy - 0(Normal) 5a. Left Arm: Motor (10-second hold) - 0(No drift) 5b. Right Arm: Motor (10-second hold) - 0(No drift) 6a. Left Leg: Motor (5-second hold - always test supine) - 0(No drift) 6b. Right Leg: Motor (5-second hold - always test supine) - 0(No drift) 7. Limb Ataxia (finger/nose \\T\\ heel/mcdermott - test with eyes open) - 0(Absent) 8. Sensory Loss (pinprick arms/legs/face) - 0(Normal) 9. Best Language: Aphasia (description/naming/reading) - 0(No aphasia) 10. Dysarthria (speech clarity - read or repeat words) - 0(Normal) 11. Extinction and Inattention (visual/tactile/auditory/spatial/personal) - 0(No abnormality) Initials: tw5 Signatures: Dispatcher [employer] EDMS Joe Andrew MD MD kdr Hawa Bustillos RN RN bb Lorelei Newman, TABATHA RN [id number] Hermilo Carpio PA PA jr8 Wood, Tiffany tw5 Corrections: (The following items were deleted from the chart) 12:05 11:56 NIHSS Score: 5 kdr kdr 13:13 11:45 Labs collected and sent ordered. kdr tw5 19:05 17:59 CORONAVIRUS+MR.LAB.BRZ ordered. EDMS EDMS 19:53 17:53 Observation kdr jr8 19:53 17:53 Enrique Villeda kdr jr8 17:53 Telemetry/MedSurg (observation) kdr jr8 17:53 Fair kdr jr8 17:53 new kdr jr8 17:53 have improved kdr jr8 17:53 Standard kdr jr8 17:53 kdr jr8 17:53 Weakness - Right face arm and leg kdr jr8 20: 19:57 Cerebral infarction, unspecified jr8 bb
--- NOTE | 2021-03-31 17:55 | ER ---
Nurse's Notes [facility] Name: Cathi Zaldivar Age: 40 yrs Sex: Female : 1980 Arrival Date: 03/31/2021 Time: 11:38 Bed 13 Private MD: Diagnosis: Transient cerebral ischemic attack, unspecified Presentation: 03/31 11:42 Chief complaint: Patient states: "my right arm started hurting, it got some tingling aa5 and started becoming weak". pt also reports tingling and weakness to right leg that began today at 1030. 11:42 Coronavirus screen: At this time, the client does not indicate any symptoms associated aa5 with coronavirus-19. Ebola Screen: Patient negative for fever greater than or equal to 101.5 degrees Fahrenheit, and additional compatible Ebola Virus Disease symptoms. Initial Sepsis Screen: Does the patient meet any 2 criteria? No. Patient's initial sepsis screen is negative. Does the patient have a suspected source of infection? No. Patient's initial sepsis screen is negative. Risk Assessment: Do you want to hurt yourself or someone else? Patient reports no desire to harm self or others. Onset of symptoms was March 31, 2021. 11:42 Acuity: JESSICA 2 aa5 11:42 Method Of Arrival: Wheelchair aa5 11:42 An acute neurological deficit is present. Pre-hospital glucose is not applicable to aa5 this patient. Triage Assessment: 13:09 The onset of the patients symptoms was March 31, 2021 at 10:30. General: Appears in tw5 no apparent distress. Behavior is calm, cooperative. Stroke Activation: Symptom onset < 3 hours Physician: Stroke Attending; Name: ; Notified At: ; Arrived At: Physician: Chief Stroke Resident; Name: ; Notified At: ; Arrived At: Physician: Stroke Resident; Name: ; Notified At: ; Arrived At: Physician: ED Attending; Name: ; Notified At: ; Arrived At: Physician: ED Resident; Name: ; Notified At: ; Arrived At: Historical: - Allergies: 11:48 ambien; aa5 11:48 Codeine; aa5 11:48 GUAIFENESIN; aa5 11:48 Ibuprofen; aa5 11:48 Lisinopril; aa5 11:48 Morphine; aa5 11:48 Nitrofurantoin Macrocrystal; aa5 11:48 PENICILLINS; aa5 11:48 Prolixin; aa5 11:48 zolpidem tartrate; aa5 - PMHx: 11:48 "mental problems"; CHF; chronic kidney disease; covid 19; cyclic vomiting syndrome; aa5 Diabetes - NIDDM; Dialysis; m-w-f; ENCEPHALOPATHY; Gastroparesis; HD-TTHSat; Hypertension; ibs; liver failure; PERIPHERAL NEUROPATHY; Seizures; - PSHx: 11:48 section; aa5 - Immunization history:: Client reports having NOT received the Covid vaccine. - Social history:: Smoking status: Patient reports the use of cigarette tobacco products, smokes one-half pack cigarettes per day. Screenin:00 Abuse screen: Denies threats or abuse. Denies injuries from another. Nutritional tw5 screening: No deficits noted. Tuberculosis screening: No symptoms or risk factors identified. Fall Risk Fall in past 12 months (25 points). Secondary diagnosis (15 points). 12:13 The patient has not been NPO before screening. The patient is alert, able to follow tw5 commands. The patient exhibits slurred or garbled speech. The patient is not exhibiting difficulty speaking. The patient does not exhibit difficulty understanding words. The patient is able to swallow own secretions with no drooling or need for suction. 13:14 Patient tolerated one teaspoon of water. No drooling, immediate coughing, gurgling, or tw5 clearing of the throat was noted. The patient tolerated 90mL of water. No drooling, immediate coughing, gurgling, or clearing of the throat was noted. The patient passed the bedside swallow screening. Oral medications may be given as ordered. Contact Physician for further diet orders. Provider notified of bedside swallow screening results: Joe Andrew MD. Assessment: 12:10 VAN Scoring: Arm Drift: Minor drift Visual Disturbance: No visual disturbance noted. tw5 Aphasia: No aphasia noted. Neglect: No neglect noted. T-PA (Activase) Screening: Indications: Definite evidence of stroke, ischemic, embolic, or hypertensive: Yes. Treatment will start within 4.5 hours onset of symptoms: Yes. No evidence of intracranial hemorrhage or CT of head and no evidence of peripheral hemorrhage or recent CVA: Yes. Consent for thrombolytic therapy: Yes. Contraindications: Is the patient on Aspirin, Heparin, or Warfarin: Yes. Blood pressure is more than 185/110: Yes. Pain: Pain currently is 5 out of 10 on a pain scale. Neuro: Level of Consciousness is awake, alert, obeys commands, [employer] are weak on right Facial droop on right. 12:40 Reassessment: unable to obtain IV access, Dr. Andrew notified, Hermilo ESQUEDA at bedside for iw central line placement. 13:09 Reassessment: Patient states symptoms have improved. tw5 13:10 General: Reports 'I am feeling the tingling, but the heaviness is subsiding.'. tw5 15:03 The patient passed the bedside swallow screening. Oral medications may be given as tw5 ordered. Contact Physician for further diet orders. Provider notified of bedside swallow screening results: Joe Andrew MD. 16:39 Reassessment: pt transferred to MRI. tr6 18:16 Reassessment: Patient appears in no apparent distress at this time. No changes from tw5 previously documented assessment. Patient and/or family updated on plan of care and expected duration. Pain level reassessed. Patient is alert, oriented x 3, equal unlabored respirations, skin warm/dry/pink. Vital Signs: 11:42 BP 185 / 100; Pulse 71; Resp 16 S; Temp 97.3(TE); Pulse Ox 100% on R/A; aa5 12:10 BP 213 / 115; Pulse 65; Resp 13; Pulse Ox 100% on R/A; Pain 5/10; tw5 13:03 BP 185 / 101; Pulse 65; Resp 12; Pulse Ox 100% on R/A; tw5 13:30 BP 205 / 110; Pulse 69; Resp 13; Pulse Ox 100% on R/A; tw5 15:03 BP 189 / 98; Pulse 68; Resp 12; Pulse Ox 100% on R/A; Pain 6/10; tw5 15:34 BP 162 / 73; Pulse 67; Resp 16; Pulse Ox 100% ; tw5 18:16 BP 189 / 103; Pulse 65; Resp 14; Pulse Ox 100% on R/A; Pain 6/10; tw5 NIH Stroke Scale Scores: 12:02 NIHSS Score: 5 kdr 12:10 NIHSS Score: 6 tw5 15:03 NIHSS Score: 0 tw5 ED Course: 11:38 Patient arrived in ED. as 11:42 Arm band placed on. aa5 11:44 Joe Andrew MD is Attending Physician. kdr 11:47 Triage completed. aa5 11:50 Micheline Guerra is Primary Nurse. tw5 11:[address] via stretcher. tw5 11:55 CT Stroke Brain w/o Contrast In Process Unspecified. EDMS 12:00 Placed in gown. quality assurance monitor body on. Pulse ox on. NIBP on. tw5 12:00 Door closed. Noise minimized. Moved to private room. Verbal reassurance given. tw5 12:03 Stroke CXR 1 View In Process Unspecified. EDMS 12:15 Missed attempt(s): 20 gauge in left forearm. Bleeding controlled, band aid applied, tw5 catheter tip intact. 12:20 Awaiting: awaiting IV access. tw5 12:20 Missed attempt(s): 20 gauge in left forearm. Bleeding controlled, band aid applied, tw5 catheter tip intact. 12:24 Patient has correct armband on for positive identification. Bed in low position. Call tw5 light in reach. Side rails up X2. 12:49 Assisted provider with central line placement. Set up central line tray. Triple lumen tw5 line placed Line placed by Hermilo ESQUEDA unsuccessful attempt Before procedure, did Practitioner(s) obtain informed consent? Yes. Patient \\T\\ family education about procedure, CLABSI prevention and S/S of infection? Yes. Time-out/Briefing performed prior to start of procedure? Yes. Was handwashing/sanitizing done immediately prior to procedure? Yes. Was patient positioned to in a way to prevent air embolism? Yes. Was procedure site sterilized? Yes, with chlorhexidine. Was the site allowed to dry? Yes. Was local anesthetic and/or sedation utilized? No. During the procedure, did the Practitioner(s) maintain a sterile field? Yes. 13:10 Dr. Andrew at the bedside discussing options with Patient. Patient is already tw5 heparinized. Pressure had to be held at the failed femoral central line access for 20 min. Pressure dressing applied. Kamran discussing the possibly of getting an MRI. 13:12 Awaiting: MRI. tw5 15:03 Door closed. Moved to private room. Warm blanket given. tw5 16:29 Resting quietly. Awaiting lab results. tr6 16:29 Initial lab(s) drawn, by research laboratory technician, sent to lab. tr6 16:36 Patient moved to MRI. tr6 16:53 MRI - Brain Wo Cont In Process Unspecified. EDMS 17:50 Enrique Villeda DO is Hospitalizing Provider. kdr 19:10 Carotid Artery Bilateral US In Process Unspecified. EDMS Administered Medications: 13:13 Not Given (Physician Discretion): ACTIvase (alteplase) IV Thrombolytics at calculated tw5 rate Per protocol over 60 mins; 0.9 mg/kg IV (Max: 90 mg); give 10% of the total dose as an IV bolus over 1 minute, then give the remaining 90% as an IV infusion over 60 minutes 13:13 Not Given (Physician Discretion): Cardizem (diltiazem) 5 mg/hr IV at calculated rate tw5 continuous; (standard dilution 125 mg diltiazem mixed in 100mL NS; final concentration 1mg/mL) Outcome: 17:53 Decision to Hospitalize by Provider. kdr 20:02 AMA AMA form signed bs2 20:02 Condition: stable 20:02 Discharge instructions given to patient, Instructed on follow up and referral plans. the need for admit, Demonstrated understanding of instructions, follow-up care. 20:03 Patient left the ED. bs2 NIH Stroke Scale - NIH Stroke Score Date: 03/31/2021 Time: 12:02 Total Score = 5 1a. Level of Consciousness (LOC) - 0(Alert) 1b. Level of Consciousness (LOC) (Month \\T\\ Age) - 0(Both) 1c. LOC Commands (Open \\T\\ Closes Eyes/President [place]) - 0(Both) 2. Best Gaze (Lateral Gaze Paresis) - 0(Normal) 3. Visual Field Loss - 0(No visual loss) 4. Facial Palsy - 1(Minor Paralysis) 5a. Left Arm: Motor (10-second hold) - 0(No drift) 5b. Right Arm: Motor (10-second hold) - 1(Drift) 6a. Left Leg: Motor (5-second hold - always test supine) - 0(No drift) 6b. Right Leg: Motor (5-second hold - always test supine) - 2(Drift, some effort against gravity) 7. Limb Ataxia (finger/nose \\T\\ heel/mcdermott - test with eyes open) - 1(Present in one limb) 8. Sensory Loss (pinprick arms/legs/face) - 0(Normal) 9. Best Language: Aphasia (description/naming/reading) - 0(No aphasia) 10. Dysarthria (speech clarity - read or repeat words) - 0(Normal) 11. Extinction and Inattention (visual/tactile/auditory/spatial/personal) - 0(No abnormality) Initials: kdr NIH Stroke Scale - NIH Stroke Score Date: 03/31/2021 Time: 12:10 Total Score = 6 1a. Level of Consciousness (LOC) - 0(Alert) 1b. Level of Consciousness (LOC) (Month \\T\\ Age) - 0(Both) 1c. LOC Commands (Open \\T\\ Closes Eyes/President [place]) - 0(Both) 2. Best Gaze (Lateral Gaze Paresis) - 0(Normal) 3. Visual Field Loss - 0(No visual loss) 4. Facial Palsy - 1(Minor Paralysis) 5a. Left Arm: Motor (10-second hold) - 0(No drift) 5b. Right Arm: Motor (10-second hold) - 1(Drift) 6a. Left Leg: Motor (5-second hold - always test supine) - 0(No drift) 6b. Right Leg: Motor (5-second hold - always test supine) - 2(Drift, some effort against gravity) 7. Limb Ataxia (finger/nose \\T\\ heel/mcdermott - test with eyes open) - 0(Absent) 8. Sensory Loss (pinprick arms/legs/face) - 1(Mild to moderate loss) 9. Best Language: Aphasia (description/naming/reading) - 0(No aphasia) 10. Dysarthria (speech clarity - read or repeat words) - 0(Normal) 11. Extinction and Inattention (visual/tactile/auditory/spatial/personal) - 1(Present) Initials: tw5 NIH Stroke Scale - NIH Stroke Score Date: 03/31/2021 Time: 15:03 Total Score = 0 1a. Level of Consciousness (LOC) - 0(Alert) 1b. Level of Consciousness (LOC) (Month \\T\\ Age) - 0(Both) 1c. LOC Commands (Open \\T\\ Closes Eyes/President [place]) - 0(Both) 2. Best Gaze (Lateral Gaze Paresis) - 0(Normal) 3. Visual Field Loss - 0(No visual loss) 4. Facial Palsy - 0(Normal) 5a. Left Arm: Motor (10-second hold) - 0(No drift) 5b. Right Arm: Motor (10-second hold) - 0(No drift) 6a. Left Leg: Motor (5-second hold - always test supine) - 0(No drift) 6b. Right Leg: Motor (5-second hold - always test supine) - 0(No drift) 7. Limb Ataxia (finger/nose \\T\\ heel/mc[place]mott - test with eyes open) - 0(Absent) 8. Sensory Loss (pinprick arms/legs/face) - 0(Normal) 9. Best Language: Aphasia (description/naming/reading) - 0(No aphasia) 10. Dysarthria (speech clarity - read or repeat words) - 0(Normal) 11. Extinction and Inattention (visual/tactile/auditory/spatial/personal) - 0(No abnormality) Initials: Signatures: Dispatcher [employer] EDJoe Reyes MD MD kdr Martinez, Amelia as Corinne Easton, Lorelei Tijerina RN, RN RN aa5 Micheline Meyers RN RN tr6 Che Zaragoza RN RN bs2 Micheline Guerra Corrections: (The following items were deleted from the chart) 11:55 11:53 Micheline Guerra is Primary Nurse. tw
--- NOTE | 2021-03-31 19:48 | RAD REPORT ---
EXAM DESCRIPTION: USCarotid Artery Yjsnjulrv21/11/2021 7:10 pm CLINICAL HISTORY: numbness COMPARISON: None FINDINGS: The velocity of the right internal carotid artery equals 88 cm/sec. The right ICA/CCA rati o 1.7 The velocity of the left internal carotid artery equals 91 cm/sec. The left ICA/CCA ratio 1.1 Minimal plaque is present within the carotid arteries. The vertebral arteries demonstrate antegrade flow IMPRESSION: Minimal plaque within the carotid arteries without evidence of a hemodynamically signifi cant stenosis NASCET criteria used. Mild 0-49% stenosis Moderate 50-69% stenosis Severe 70-99% stenosis
[2021-03-31 20:18] VITALS: TEMP 97.3; O2SAT 100
[2021-03-31 20:26] VITALS: BP 189/103
--- NOTE | 2021-04-01 11:00 | EKG ---
Test Date: 2021-03-31 Test Time: 11:48:20 [place]: SONNY MEASUREMENT RESULTS: Intervals: Rate: 71 [place]: 132 QRSD: 86 QT: 446 QTc: 484 [place]: P: 56 [place]: 132 QRS: 86 T: 82 INTERPRETIVE STATEMENTS: Normal sinus rhythm Prolonged QT Abnormal ECG Compared to ECG 02/17/2021 06:17:26 Prolonged QT interval now present Electronically Signed On 04-01-21 10:57:05 CDT by Juan Hogan
== END 2021-03-31 20:03 | disposition left against medical advice (07) ==
LOC: ER 11:37
DX: G45.9 Transient cerebral ischemic attack, unspecified (principal); R29.705 NIHSS score 5; F17.210 Nicotine dependence, cigarettes, uncomplicated; E11.22 Type 2 diabetes mellitus with diabetic chronic kidney disease; I13.0 Hypertensive heart and chronic kidney disease with heart failure and stage 1 through stage 4 chronic kidney disease, or unspecified chronic kidney disease; N18.9 Chronic kidney disease, unspecified; I50.9 Heart failure, unspecified; Z99.2 Dependence on renal dialysis; Z88.0 Allergy status to penicillin; Z88.5 Allergy status to narcotic agent; Z88.6 Allergy status to analgesic agent; Z88.8 Allergy status to other drugs, medicaments and biological substances; Z20.822 Contact with and (suspected) exposure to COVID-19
CPT/HCPCS: 93005; 85025; 80048; 36415; 85610; 82947; 85730; 70450; 71045; 93880; 70551; 99285; U0003; J2997

== ENCOUNTER 2021-05-09 13:01 | Day surgery (SDC) | payer OTHER ==
[2021-05-09] MEDS ORDERED: NA CHLORIDE 0.9% 250 ML ONE (14:19)
[2021-05-09 15:22] VITALS: BMI 29.4
[2021-05-09 16:53] VITALS: BP 124/72; TEMP 98.4; O2SAT 98
[2021-05-09 19:11] LABS: Hematocrit 20.9 % (36.0-45.0)
== END 2021-05-09 18:02 | disposition home or self-care (01) ==
LOC: DS 13:01
PROVIDERS: ATTEND Internal Medicine Nephrology
DX: D64.9 Anemia, unspecified (principal)
CPT/HCPCS: 36415; 86900; 86850; 86901; 85018; 85014; 36430; P9016; J7050

== ENCOUNTER 2021-05-13 20:11 | Emergency (ER) | payer OTHER ==
--- OUTSIDE RECORDS SUMMARY | 2021-05-13 21:17 | XMS REPORT | Continuity of Care Document ---
:1980 Author Organization [facility] t Address [address] [place] [address] Care Team Providers Name Role Phone Vivien FRANKLIN Primary Care Physician Unavailable KENYATTA Attending Clinician Unavailable Benedicto BURNS Attending Clinician Lamin BURNS, K.H. Attending Clinician Doctor Unassigned, Name Attending Clinician Unavailable Carlos BURNS Attending Clinician Mnauel Sanchez DO Attending Clinician Naun Cleaning DPM Attending Clinician LAMIN, K.H. Attending Clinician Unavailable Chivo Attending Clinician Unavailable Chivo Attending Clinician Unavailable HAWA BHAKTA Attending Clinician Unavailable Chivo Admitting Clinician Unavailable HAWA BHAKTA Admitting Clinician Unavailable Payers Payer Name Policy Type Policy Number Effective Date Expiration Date S karla [facility] [id number] 2021 (MEDICARE 00:00:00 REPLACEMENT HMO) Advance Directives Directive Decision Effective Termination Comments Source Date Date Healthcare Agents on N/A [facility] FileNameRe[facility] [place] Agent Medical RelationshipCommunicationJennifer Branch FoundSibling3 - First 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 End stage End stage Disease Active [place] renal renal 7-16 Health failure on failure on 00:00: dialysis dialysis 00 Diabetes Diabetes Disease Active [facility] mellitus mellitus 7-16 Health with with 00:00: gastropare gastropare 00 sis sis Essential Essential Disease Active [facility] hypertensi hypertensi -16 He alth on on 00:00: 00 Irritable Irritable Disease Active [facility] bowel bowel 7-16 Health syndrome syndrome 00:00: (IBS) (IBS) 00 NEW Diagnosis Active 2020-12-24 Mem oria PATIENT GI 26 10:39:00 l CONSULT NEW 00:00: Vin REFRACTORY PATIENT GI 00 GASTRO CONSULT REFRACTORY GASTRO Active 10/14/2020 [facility] Malfunctio Malfunctio Disease Active Overview : Univers n of n of 6-03 Formattin ity of arterioven arterioven 00:00: g of this [place] ous ous 00 note Medical dialysis dialysis might be Bran ch fistula, fistula, different initial initial from the encounter encounter original. Added automatic ally from request for surgery [id number] Candidiasi Candidiasi Disease Active U nivers s of vulva s of vulva 2-18 it y of and vagina [place] Screening Screening Disease Active Uni vers for breast for breast 2-18 it y of cancer cancer 00:00: [place] 00 Medical Branch NEW Diagnosis Active 2018-07-26 Mem oria EVALUATION 07-12 09:39:00 l NEW 00:00: Vin EVALUATION 00 Active 07/12/2018 [facility] Pyogenic Pyogenic Disease Active 2017-06 Overview: Un lori granuloma granuloma 0-17 Formattin i ty of of of 00:00: g of this [place] conjunctiv conjunctiv 00 note Me dical a, right a, right might be Bran ch different from the original. Added automatic ally from request for surgery [id number] Right eye Right eye Disease Active Overview: Univers affected affected 02-22 Formattin ity of by by 00:00: g of this [place] proliferat proliferat 00 note Me dical montse montse might be Branch diabetic diabetic different retinopath retinopath from the y with y with original. 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 Eviscerat ion OS on 8 - Dr. 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 Added automatic ally from request for surgery [id number] ESRD (end ESRD (end Disease Active Overview: Univers stage stage 6-12 Formattin ity of renal renal 00:00: g of this [place] disease) disease) 00 note Medica l on on might be Branch dialysis dialysis different from the original. Added automatic ally from request for surgery [id number] LUQ pain LUQ pain Disease Active Unive rs 2-05 ity of 00:00: [place] 00 Medical Branch Glaucoma Glaucoma Disease Active Overview: Un lori due to due to 07-22 Formattin ity of silicone silicone 00:00: g of this Baljinder as oil oil 00 note Medical might be Branch different from the original. Added automatic ally from request for surgery [id number] Neovascula Neovascula Disease Active U nivers r r 1-18 ity of glaucoma, glaucoma, 00:[place] left eye [place] Medica l Branch Increased Increased Disease Active Uni vers intraocula intraocula 1-18 it y of r pressure r pressure [place] Fall Fall Disease Active 2016-06 Univers 0-13 ity of 00:00: [place] [id number] Medical Branch Pneumonia Pneumonia Disease Active 2016-06 Uni vers 0-11 ity of 00:00: [place] [id number] Medical Branch Diabetes Diabetes Disease Active 2016-06 Overview: Un lori mellitus mellitus 0-05 Formattin ity of 00:00: g of this [place] 00 note Medical might be Branch different from the original. Added automatic ally from request for surgery [id number] Pseudotumo Pseudotumo Disease Active U nivers r cerebri r cerebri 9-25 ity of 00:00: [place] [id number] Medical Branch Peripheral Peripheral Disease Active U nivers neuropathy neuropathy 7-16 it y of 00:00: [address] Branch Liver Liver Disease Active [facility] failure, [...] Disease Active [facility] encephalop encephalop 7-16 Kenyatta kes - athy athy 00:00: Medical 00 Center Ulcer of Ulcer of Disease [facility] toe [facility] toe of [facility]16 [facility] - left foot left foot 00:00: Medi [place] 00 Center Hyperglyce Hyperglyce Disease Active [facility] 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 7-16 Kenyatta kes - type 2 type 2 00:00: Medical diabetes diabetes 00 Center mellitus mellitus Gastropare Gastropare Disease Active [facility] sis due to sis due to 7-16 Keny[facility] kes - DM DM 00:00: Medical 00 Center Cyclic Cyclic Disease Active [facility] vomiting vomiting 7-16 [facility] - syndrome syndrome 00:00: Medica l 00 Center Anxiety Anxiety Disease Active [facility] 7-16 [facility] 00[facility] Center Bipolar Bipolar Disease Active [facility] disorder disorder -16 [facility] - 00:[facility] Center Hypertensi Hypertensi Disease Active [facility] ve ve 7-16 [facility] - emergency emergency 00:00: Medi [place] 00 Center ACUTE RESP Diagnosis Active 2016-09-09 Memoria FAILURE 2- 09:11:00 l ACUTE 00:00: [place] RESP 00 FAILURE Active 07/23/2016 [facility] CONGESTION Diagnosis Active 2016-07-24 Memoria AMD 2- 01:49:00 l DIARRHEA 00:00: [place] CONGESTION 00 AMD DIARRHEA Active 07/23/2016 [facility] SOB/SWELLI Diagnosis Active 2015-062016-06-10 Memoria NG 2- 15:48:00 l 00:00: Vin SOB/SWELLI [address] [facility] CHF/RENAL Diagnosis Active 2015-062016-06-24 Memoria DISEASE - 15:35:00 l 00:00: [place] CHF/RENAL 00 DISEASE Active 06/10/2016 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 Hyperglyce Hyperglyce Disease Active 2015-06 U viviana maryam maryam 0-11 ity of 00:00: [place] [id number] Medical Branch Diabetic Diabetic Disease Active Unive rs ulcer of ulcer of 5-07 ity of both feet both feet 00:[place] associated associated 00 Me dical with type with type Bran ch 2 diabetes 2 diabetes mellitus mellitus SANJUANA (acute SANJUANA (acute Disease Active U viviana kidney kidney 5-07 ity of injury) injury) 00:00: [place] [id number] Medical Branch Depression Depression Disease Active U nivers 5-07 ity of 00:00: [place] 00 Medical Branch Bipolar 1 Bipolar 1 Disease Active Uni vers disorder disorder 5-07 ity of 00:00: [place] [facility] Suicidal Suicidal Disease Active Unive rs ideation ideation 5-05 ity of 00:00: [place] 00 Medical Branch 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, 1.5, 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 00 Medical Branch Hematuria, Hematuria, Disease Active U nivers undiagnose undiagnose 2-16 it y of d cause d cause 00:00: [place] 00 Medical Branch Cystitis Cystitis Disease Active 2014-06 Unive rs with with 1-17 ity of hemat[facility] Essential Essential Disease Active 2014-06 Uni vers hypertensi hypertensi 1-13 it y of on, benign on, benign 00:[place] Family Family Disease Active 2014-06 Univers history of history of 1-13 it y of breast breast 00:00: [place] cancer in cancer in 00 [facility] female female Branch Family Family Disease Active 2014-06 Univers history of history of 1-13 it y of ovarian ovarian 00:00: [place] cancer cancer 00 Medical Branch Galactorrh Galactorrh Disease Active 2014-06 U viviana ea ea 1-13 ity of 00:00: [place] 00 Medical Branch History of History of Disease Active 2014-06 U viviana tubal tubal 1-13 ity of ligation ligation 00:00: [place] 00 Medical Branch Excessive Excessive Disease Active 2014-06 Uni vers or or 1-13 ity of frequent frequent 00:00: [place] menstruati menstruati 00 Me dical on on Branch Tobacco Tobacco Disease Active 2014-06 Univers use use 1-13 ity of disorder disorder 00:00: [place] 00 Medical Branch ABDOMINAL Diagnosis Active 2014-06-26 Memoria PAIN, 1-06 05:44:00 l SEIZURES 00:00: [place] ABDOMINAL 00 PAIN, SEIZURES Active 06/26/2013 [facility] ABD PAIN Diagnosis Active 2012-062013-04-19 M emoria 0 21:51:00 l ABD PAIN 19:00: Jake n 00 Active 04/14/2013 [place] GASTROPERI Diagnosis Active 2012-09-13 Memoria SIS 2- 15:17:00 l 00:00: [place] GASTROPERI 00 SIS Active 08/02/2012 [facility] ABDOMINAL Diagnosis Active 2012-03-14 Memoria PAIN 03-14 16:56:00 l 14:00: [place] ABDOMINAL 00 PAIN Active 03/14/2012 [facility] NAUSEA, Diagnosis Active 2012-03-14 Me moria VOMITING 03-14 13:25:00 l NAUSEA, 08:00: [place] VOMITING 00 Active 03/14/2012 [facility] N/V Diagnosis Active 2011-12-08 Mem oria INABILITY 11-27 11:14:00 l TO N/V 00:00: Vin TOLERATE INABILITY 00 PO TO TOLERATE PO Active 2 [facility] VOMITTING Diagnosis Active 2011-11-28 Memoria 11-27 16:28:00 l 00:00: [place] VOMITTING 00 Active 11/28/2011 [facility] VOMITTING, Diagnosis Active 2011-09-18 Memoria HIGH BLOOD 09-17 09:45:00 l SUGAR 00:00: [place] VOMITTING, 00 HIGH BLOOD SUGAR Active 09/18/2011 [facility] Methicilli Problem Active 2021-01-31 M emoria n - 22:29:25 l resistant 00:00: Vin Staphyloco Methicilli 00 ccus n aureus resistant (organism) Staphyloco ccus aureus (organism) Active 09/01/2011 Problem 01/31/2021 09/01/11 - Elbow woundProbl em added by Discern Expert. [facility] MRSA Problem Active 2012-03-16 Memor ia 3- 09:11:30 l MRSA 00:00: Vin 00 Active 09/01/2011 Problem 03/16/2012 - Elbow aphop4Huvf emily added by Discern Expert. [facility] VOMITING, Diagnosis Active 2011-09-01 Memoria BLOOD - 03:19:00 l SUGAR 00:00: Vin READINGS VOMITING, 00 HIGH BLOOD SUGAR READINGS HIGH Active 08/31/2011 [facility] ELBOW Diagnosis Active 2011-09-10 Mem oria ABSCESS/HY -12 16:26:00 l PERGLYCEMI ELBOW 00:00: Nidia nn A ABSCESS/HY 00 PERGLYCEMI A Active 08/31/2011 [facility] Hypokalemi Problem Active 2012-03-16 M emoria a - 09:11:30 l 00:00: Vin Hypokalemi 00 a Active 08/23/2011 Problem 03/16/2012 [facility] DKA Diagnosis Active 2011-08-24 Mem oria 11:27:00 l DKA 00:00: [place] 00 Active 08/19/2011 [facility] VOMITING Diagnosis Active 2011-08-19 M emoria 16:21:00 l VOMITING 00:00: Jake n 00 Active 08/19/2011 [facility] Final: Problem 2016-08-02 Memor ia Acute 02:46:22 l respirator Final: Herm naeem y failure, Acute unspecifie respirator d whether y failure, with unspecifie hypoxia or d whether hypercapni with a hypoxia or hypercapni a 08/02/2016 [facility] Hypoglycem Problem Inactiv 2012-03-16 Memoria ia e 09:11:30 l Vin Hypoglycem ia Inactive Problem 03/16/2012 [facility] Hypoglycem Problem Inactiv 2013-04-22 Memoria ia e 04:46:33 l (disorder) Jake gonzalez Hypoglycem ia (disorder) Inactive Problem 04/22/2013 [facility] Gastropare Problem Resolve 2021-01-31 Memoria sis d 22:29:25 l (disorder) Jake gonzalez Gastropare sis (disorder) Resolved Problem 01/31/2021 [facility] Hypertensi Problem Resolve 2021-01-31 Memoria ve d 22:29:25 l disorder, Vin systemic Hypertensi arterial ve (disorder) disorder, systemic arterial (disorder) Resolved Problem 01/31/2021 [facility] Psychiatri Problem Resolve 2021-01-31 Memoria c d 22:29:25 l behavioral Jake n disability Psychiatri (finding) c behavioral disability (finding) Resolved Problem 01/31/2021 [facility] Seizure Problem Resolve 2021-01-31 Mem oria (finding) d 22:29:25 l Seizure Vin (finding) Resolved Problem 01/31/2021 [facility] Hypertensi Problem Active 2012-03-16 M emoria on 09:11:30 l [place] Hypertensi on Active Problem 2 [facility] Hypomagnes Problem Active 2013-04-22 M emoria emia 04:46:33 l [place] Hypomagnes emia Active Problem 04/22/2013 [facility] Nausea and Problem Active 2012-03-16 M emoria vomiting 09:11:30 l Nausea [place] and vomiting Active Problem 03/16/2012 [facility] ENCNTR FOR Diagnosis Active 2020-12-24 Memoria GENERAL 10:39:00 l ADULT ENCNTR [place] MEDICAL FOR EXAM W/ GENERAL ADULT MEDICAL EXAM W/ Active [facility] DMI Diagnosis Active 2011-08-24 Mem oria KETOACD 11:27:00 l UNCONTROLD DMI Jake n KETOACD UNCONTROLD Active [facility] OTHER Diagnosis Active 2011-09-10 Mem oria GENERAL 16:26:00 l SYMPTOMS OTHER [place] GENERAL SYMPTOMS Active [facility] HEART Diagnosis Active 2016-06-24 Mem oria FAILURE, 15:35:00 l UNSPECIFIE HEART Nidia nn D FAILURE, UNSPECIFIE D Active [facility] ACUTE Diagnosis Active 2016-09-09 Mem oria RESPIRATOR 09:11:00 l Y FAILURE, ACUTE Nidia nn UNSP W RESPIRATOR HYPOXI Y FAILURE, UNSP W HYPOXI Active [facility] Nausea and Problem Resolve 2021-01-31 2021-01-31 Memoria vomiting d 6-10 22:29:25 22:29:25 l (disorder) Nausea 00:00: Herm naeem and 00 vomiting (disorder) Resolved 11/29/2011 Problem 01/31/2021 [facility] Hypokalemi Problem Resolve 2021-01-31 2021-01-31 Memoria a d 3-04 22:29:25 22:29:25 l (disorder) 00:00: Jake n Hypokalemi 00 a (disorder) Resolved 08/23/2011 Problem 01/31/2021 [facility] Disorder Problem Resolve 2021-01-312021-01-31 Memoria of d 3- 22:29:25 22:29:25 l magnesium Disorder 00:00: Her braden metabolism of 00 (disorder) magnesium metabolism (disorder) Resolved 08/23/2011 Problem 01/31/2021 [facility] Hyperglyce Problem Resolve 2021-01-31 2021-01-31 Memoria maryam d 3- 22:29:25 22:29:25 l (disorder) 00:00: Jake n Hyperglyce 00 maryam (disorder) Resolved 08/20/2011 Problem 01/31/2021 [facility] Ketoacidos Problem Resolve 2021-01-31 2021-01-31 Memoria is in d 22:29:25 22:29:25 l diabetes 00:00: Vin mellitus Ketoacidos 00 (disorder) is in diabetes mellitus (disorder) Resolved 08/19/2011 Problem 01/31/2021 [facility] DKA Problem Resolve 2013-04-22 2013-04-22 Memoria (diabetic d 04:46:33 04:46:33 l ketoacidos DKA 00:00: Jake n es) (diabetic 00 ketoacidos es) Resolved 08/19/2011 Problem 04/22/2013 [facility] History of Past Illness Condition Condition Condition Status Onset Resolution Last Treating Co mments Source Name Details Category Date Date Treatment Clinician Date Discharge Problem 2014-06-28 2014-06-28 Memoria Diagnosis: 1- 16:34:37 16:34:37 l Gastropare 06:00: Jake n sis Discharge 00 Diagnosis: Gastropare sis 06/26/2014 06/28/2014 [facility] Hyperglyce Problem Inactiv 2012-03-16 2012-03-16 Memoria maryam e 3- 09:11:30 09:11:30 l 00:00: Vin Hyperglyce 00 maryam Inactive 08/20/2011 Problem 03/16/2012 [facility] Allergies, Adverse Reactions, Alerts Allergy Allergy Status Severity Reaction(s) Onset Inactive Treating Comm ents Source Name Type Date Date Clinician Morphine Propensi Active Shortness of Univers ty to Breath 03-19 ity of adverse 00:00: [place] reaction 00 Medical s Branch MORPHINE DRUG Active ITCHING Univers INGREDI 9 ity of 00:00: [place] [facility] Morphine Allergy Active Itching 0 UT to 4-13 Health substanc 00:00: e 00 Cephalex Propensi Active Hives 2017- Univer s in ty to 01-18 ity of adverse 00:00: [place] reaction 00 Medical s Branch CEPHALEX DRUG Active Hives Univers IN INGREDI 01-18 ity of 00:00: [place] 00 Medical Branch Cephalex Allergy Active Hives 2017-0 UT in to 01-18 Health substanc 00:00: e 00 Adhesive Propensi Active Swelling 2016-06 Univ ers Tape-Kerline ty to 2-14 ity of icones adverse 00:00: [place] reaction 00 Medical s to Branch drug ADHESIVE DRUG Active Med Rash 2016-06 Univers TAPE-KERLINE 2-14 ity of ICONES 00:00: [place] 00 Medical Branch Adhesive Drug Active Swelling 2016- UT Tape Allergy 2-14 Health 00:00: 00 Nitrofur Propensi Active Other - See Reports Univers antoin ty to comments 03-19 transient ity o f adverse 00:00: liver [place] reaction 00 disease Medical s with Branch nitrofura ntoin NITROFUR DRUG Active Other-Cmnt Univ ers ANTOIN INGREDI 9 ity of 00:00: [place] 00 Medical Branch Guaifene Propensi Active Other - See numbness Univers sin ty to comments 7-16 ity of adverse 00:00: [place] reaction 00 Medical s Branch GUAIFENE DRUG Active Other-Cmnt Univ ers SIN INGREDI 7-16 ity of 00:00: [place] 00 Medical Branch Zolpidem Drug Active Other (See [address] Allergy Comments) 716 [facility] - 00:[facility]: Medical 00 Center Lisinopr Drug Active Other (See [address] il Allergy Comments) 716 remember Luke s - 00:00: Medical 00 Center Nitrofur Drug Active Anaphylaxis 2016- Liver [facility] antoin Allergy 7-16 failure [facility] - Monohyd/ 00:00: Medical M-Cryst 00 Center Penicill Drug Active Shortness Of [address] ins Allergy Breath 716 [facility] - 00:[facility]: Medical 00 Center Guaifene Drug Active Other (See numbness [facility] sin Allergy Comments) 716 [facility] - 00:[facility]: Medical 00 Center Nitrofur Allergy Active Anaphylaxis Other UT antoin to 716 reaction( Health substanc 00:00: s): liver e 00 failure, Other (see comments) , Other - See commentsL iver failure Reports transient liver disease with nitrofura ntoinRepo rts transient liver disease with nitrofura ntoinLive r failure Reports transient liver disease with nitrofura ntoinLive r failure Liver failure Ketorola Propensi Active Swelling throat Univ ers c ty to 6-25 ity of Trometha adverse 00:00: [place] mine reaction 00 Medical s to Branch drug KETOROLA DRUG Active High Swelling Univer s C INGREDI 6-25 ity of TROMETHA 00:00: [place] MINE 00 Medical Branch Ketorola Allergy Active Swelling throatthr UT c to 6-25 oatthroat Health Trometha substanc 00:00: mine e 00 Phenylep Allergy Active Other UT hrine to 4-29 reaction( Health substanc 00:00: s): Hives e 00 Fluphena Allergy Active Other UT zine to 4-29 reaction( Health substanc 00:00: s): ARM e 00 NUMBNESS Lisinopr Propensi Active Other - See 2015-06 angioede m Univers il ty to comments 0-11 a ity of adverse 00:00: [place] reaction 00 Medical s Branch LISINOPR DRUG Active Other-Cmnt 2015-06 Univ ers IL INGREDI 0-11 ity of 00:00: [place] 00 Medical Branch Lisinopr Allergy Active 2015-06 Other UT il to 0-11 reaction( Health substanc 00:00: s): e 00 Anaphylax is, angioedem a, Other (See Comments) , Other (See Comments) , Other (see comments) , Other (See Comments) , Other - See commentsU nable to rememberT ongue swellingF acial droopinga ngioedema angioedem aUnable to rememberU nable to remember Zolpidem Propensi Active Other - See Sleep U nivers Tartrate ty to comments 1-03 walking ity o f adverse 00:00: [place] reaction 00 Medical s to Branch drug ZOLPIDEM DRUG Active Med Other-Cmnt Univ ers TARTRATE INGREDI 06-23 ity of 00:00: [place] 00 Medical Branch Zolpidem Allergy Active Severe Other UT to 06-23 reaction( Health substanc 00:00: s): e 00 Itching/H anoop/Rash , Other (See Comments) , Other (see comments) , Other (See Comments) , Other (See Comments) , Other - See commentsc onfusionf orgetfulS leep walkingSl eep walkingco nfusionco nfusion Codeine Allergy Active Hives Other UT to 01-13 reaction( Health substanc 00:00: s): Other e 00 (see comments) Prolex Propensi Active Other - See Uni vers ty to comments 12-30 ity of adverse 00:00: [place] reaction 00 Medical s to Branch drug PROLEX DRUG Active Other-Cmnt Univer s 12-30 ity of 00:00: [place] 00 Medical Branch Guaifene Allergy Active Hives Other UT sin to 12-30 reaction( Health substanc 00:00: s): Other e 00 (See Comments) , Other (see comments) , Other (See Comments) , Other (See Comments) , Other - See commentsn bety cotto bnessneric mckoy ssnumbnes s Penicill Propensi Active Anaphylaxis 2010-06 U nivers ins ty to 2-27 ity of adverse 00:00: [place] reaction 00 Medical s Branch PENICILL Drug Active Anaphylaxis 2010-06 Uni vers INS Class 2-27 ity of 00:00: [place] 00 Medical Branch Penicill Allergy Active Shortness of 2010-06 Other U T ins to breath 2-27 reaction( Health substanc 00:00: s): e 00 HivesAirw ay closure penicill penicill Active Memori a ins ins l Vin Adhesive Adhesive Active Memori a Tape Tape l [place] Prolex Prolex Active Memoria DM DM l Vin Social History Social Habit Start Date Stop Date Quantity Comments Source History of tobacco Cigarette Smoker [facility] use Exposure to Not sure University of SARS-CoV-2 (event) [facility] Tobacco use and 2021-01-06 2021-01-06 Never used [facility] exposure 00:00:00 00:00:00 Alcohol intake 2021-01-06 2021-01-06 Ex-drinker [facility] 00:00:00 00:00:00 (finding) Social History 2020-12-24 2020-12-24 Shahid lainez 15:49:37 15:49:37 Cigarettes smoked 2020-06-27 2020-06-27 Univers ity of current (pack per 00:00:00 00:00:00 [facility] ) - Reported Branch Tobacco Comment 2020-04-02 2020-04-02 1 to 1 a day Univers ity of 00:00:00 00:00:00 [facility] Cigarette 2017-12-17 2017-12-[address] [facility] - pack-years 00:00:00 00:00:00 [facility] Sex Assigned At [birth year] [facility] 00:00:00 00:00:00 Smoking Status Start Date Stop Date Source Current every day 2021-01-06 00:00:00 [facility] smoker Former smoker 2020-06-27 00:00:00 2020-06-27 00:00:00 [facility] Medications Ordered Filled Start Stop Current Ordering Indication Dosage Frequency Signature Comments Components Source Medication Medication Date Date Medication? Clinician (SIG) Name Name divalproex 2020-06 Yes 500mg Take 500 Un l[facility] ER 0-01 mg by ity of (DEPAKOTE 23:08: mouth 2 [place] ER) 500 mg 36 (two) Medical 24 hr times Branch tablet daily. gabapentin 2020-06 Yes 100mg Take 100 Un l[facility] 100 mg 0-01 mg by ity of capsule 23:08: mouth 2 [place] 36 (two) Medical times Branch daily. vitamin C 2020-06 Yes 2000mg Take 2,000 [facility] with sia 0-01 mg by ity of hips 23:08: mouth 2 [place] (VITAMIN C) 36 (two) Medical 1,000 mg times Branch tablet daily. metoprolol 2020-06 Yes 50mg Take 50 mg U nivers tartrate 50 0-01 by mouth ity of mg tablet 23:08: daily. [place] [address] Medical Branch folic 2020-06 Yes 800mg Take 800 [facility] acid/vit B 0-01 mg by ity of complex and 23:08: mouth [place] C 36 daily. Medical (DIALYVITE Branch 800 ORAL) linagliptin 2020-06 Yes Take by Un lori (TRADJENTA) 0-01 mouth. ity of 5 mg tablet 23:08: [place] [address] Medical Branch spironolact 2020-06 Yes 50mg Take 50 mg [facility] one 50 mg 0-01 by mouth ity of tablet 23:08: daily. [place] [address] Medical Branch pravastatin 2020-06 Yes 40mg Take 40 mg Univers 40 mg 0-01 by mouth ity of tablet 23:08: daily. [place] [address] Medical Branch mv-mn/iron/ 2020-06 Yes 1{capsu Take 1 U nivers folic 0-01 le} capsule by ity of acid/herb 23:08: mouth [place] 190 36 daily. Medical (VITAMIN D3 Branch COMPLETE ORAL) SERTraline 2020-06 Yes 50mg Take 50 mg U nivers 50 mg 0-01 by mouth ity of tablet 23:08: daily. [address] Branch calcium 2020-06 Yes 667mg Take 667 Unive rs acetate 667 0-01 mg by [facility] of mg capsule 23:08: mouth [place] (three) Medical times Branch daily with meals. cetirizine 2020-06 Yes 1{tbl} Take 1 Uni vers HCl/pseudoe 0-01 tablet by ity of phedrine 23:08: mouth [place] (ZYRTEC-D 36 daily. Medical ORAL) Branch furosemide 2020-06 Yes 40mg Take 40 mg U nivers 40 mg 0-01 by mouth 2 ity of tablet 23:08: (two) [place] 36 times Medical daily. Branch BUPROPION 2020-06- No 300mg Take 300 Un lori HCL ORAL 0-01 10-01 mg by ity of 16:33: 00:00 mouth [place] 14 :00 every Medical morning. Branch Wellbutrin XL tramadol No Notes: Not Mem oria hydrochlori 8-11 to exceed l de 50 MG 11:14: 400mg/day. Her braden Oral Tablet 00 (Same As: Ultram) tramadol No Notes: Not Mem oria hydrochlori 8-11 to exceed l de 50 MG 11:14: 400mg/day. Her braden Oral Tablet 00 (Same As: Ultram) tramadol No Notes: Not Mem oria hydrochlori 8-11 to exceed l de 50 MG 11:14: 400mg/day. Her braden Oral Tablet 00 (Same As: Ultram) tramadol No Notes: Not Mem oria hydrochlori 8-11 to exceed l de 50 MG 11:14: 400mg/day. Her braden Oral Tablet 00 (Same As: Ultram) tramadol No Notes: Not Mem oria hydrochlori 8-11 to exceed l de 50 MG 11:14: 400mg/day. Her braden Oral Tablet 00 (Same As: Ultram) tramadol No Notes: Not Mem oria hydrochlori 8-11 to exceed l de 50 MG 11:14: 400mg/day. Her braden Oral Tablet 00 (Same As: Ultram) Simethicone No Notes: Mendoza janice 8-11 (Same as: l 01:36: Mylicon) [place] Simethicone No Notes: Mendoza janice 8-11 (Same as: l 01:36: Mylicon) [place] Simethicone No Notes: Mendoza janice 8-11 (Same as: l 01:36: Mylicon) [place] Simethicone No Notes: Mendoza janice 8-11 (Same as: l 01:36: Mylicon) [place] Simethicone No Notes: Mendoza janice 8-11 (Same as: l 01:36: Mylicon) Vin Simethicone No Notes: Mendoza janice 8-11 (Same as: l 01:36: Mylicon) [place] epoetin Yes 2,000 unit M[place] janice giovanny-epbx 8-10 = 1 mL, l 1999 19:37: IV, [place] units/mL 00 Q-M-W-F, preservativ to be e-free given at injectable post solution Dialysis sessions, 0 Refill(s) epoetin Yes 2,000 unit Mendoza janice giovanny-epbx 8-10 = 1 mL, l 1999 19:37: IV, [place] units/mL 00 Q-M-W-F, preservativ to be e-free given at injectable post solution Dialysis sessions, 0 Refill(s) epoetin 2020-0 Yes 2,000 unit M[place] janice giovanny-epbx 8-10 = 1 mL, l 1999 19:37: IV, Vin units/mL 00 Q, preservativ to be e-free given at injectable post solution Dialysis sessions, 0 Refill(s) epoetin 2020-0 Yes 2,000 unit M[place] janice giovanny-epbx 8-10 = 1 mL, l 1999 19:37: IV, Vin units/mL 00 , preservativ to be e-free given at injectable post solution Dialysis sessions, 0 Refill(s) epoetin 2020-0 Yes 2,000 unit M[place] janice giovanny-epbx 8-10 = 1 mL, l 1999 19:37: IV, Vin units/mL 00 , preservativ to be e-free given at injectable post solution Dialysis sessions, 0 Refill(s) epoetin 2020-0 Yes 2,000 unit Mendoza janice giovanny-epbx 8-10 = 1 mL, l 1999 19:37: IV, Vin units/mL 00 , preservativ to be e-free given at injectable post solution Dialysis sessions, 0 Refill(s) gabapentin 2020-0 Yes 300 mg = 1 M emoria 300 MG Oral 8-10 cap, PO, l Capsule 19:34: Q-, # Herm naeem 00 13 cap, 0 Refill(s) gabapentin 2020-0 Yes 300 mg = 1 M emoria 300 MG Oral 8-10 cap, PO, l Capsule 19:34: Q---F, # Herm naeem 00 13 cap, 0 Refill(s) gabapentin 2020-0 Yes 300 mg = 1 M emoria 300 MG Oral 8-10 cap, PO, l Capsule 19:34: Q---F, # Herm naeem 00 13 cap, 0 Refill(s) gabapentin 2020-0 Yes 300 mg = 1 M emoria 300 MG Oral 8-10 cap, PO, l Capsule 19:34: Q--F, # Herm naeem 00 13 cap, 0 Refill(s) gabapentin 2020-0 Yes 300 mg = 1 M emoria 300 MG Oral 8-10 cap, PO, l Capsule 19:34: , # Herm naeem 13 cap, 0 Refill(s) gabapentin 2020-0 Yes 300 mg = 1 M emoria 300 MG Oral 8-10 cap, PO, l Capsule 19:34: , # Herm naeem 13 cap, 0 Refill(s) amLODIPine 2020-0 Yes 10 mg = 1 Me moria 10 mg oral 8-10 tab, PO, l tablet 19:33: Daily, # [place] 00 30 tab, 2 Refill(s) busPIRone 2020-0 Yes 7.5 mg = 1 Me moria 7.5 mg oral 8-10 tab, PO, l tablet 19:33: BID, 0 [place] 00 Refill(s) buPROPion 2020-0 Yes 75 mg = 1 Mem oria 75 mg oral 8-10 tab, PO, l tablet 19:33: Daily, # 14 tab, 0 Refill(s) amLODIPine 2020-0 Yes 10 mg = 1 Me moria 10 mg oral 8-10 tab, PO, l tablet 19:33: Daily, # Vin 00 30 tab, 2 Refill(s) busPIRone 2020-0 Yes 7.5 mg = 1 Me moria 7.5 mg oral 8-10 tab, PO, l tablet 19:33: BID, 0 00 Refill(s) buPROPion 2020-0 Yes 75 mg = 1 Mem oria 75 mg oral 8-10 tab, PO, l tablet 19:33: Daily, # [place] 00 14 tab, 0 Refill(s) amLODIPine 2020-0 Yes 10 mg = 1 Me moria 10 mg oral 8-10 tab, PO, l tablet 19:33: Daily, # Vin 00 30 tab, 2 Refill(s) busPIRone 2020-0 Yes 7.5 mg = 1 Me moria 7.5 mg oral 8-10 tab, PO, l tablet 19:33: BID, 0 [place] 00 Refill(s) buPROPion 2020-0 Yes 75 mg = 1 Mem oria 75 mg oral 8-10 tab, PO, l tablet 19:33: Daily, # Vin 00 14 tab, 0 Refill(s) amLODIPine 0 Yes 10 mg = 1 Me moria 10 mg oral 8-10 tab, PO, l tablet 19:33: Daily, # Vin 00 30 tab, 2 Refill(s) busPIRone Yes 7.5 mg = 1 Me moria 7.5 mg oral 8-10 tab, PO, l tablet 19:33: BID, 0 Vin 00 Refill(s) buPROPion 0 Yes 75 mg = 1 Mem oria 75 mg oral 8-10 tab, PO, l tablet 19:33: Daily, # [place] 00 14 tab, 0 Refill(s) amLODIPine Yes 10 mg = 1 Me moria 10 mg oral 8-10 tab, PO, l tablet 19:33: Daily, # [place] 00 30 tab, 2 Refill(s) busPIRone Yes 7.5 mg = 1 Me moria 7.5 mg oral 8-10 tab, PO, l tablet 19:33: BID, 0 [place] 00 Refill(s) buPROPion Yes 75 mg = 1 Mem oria 75 mg oral 8-10 tab, PO, l tablet 19:33: Daily, # 14 tab, 0 Refill(s) amLODIPine Yes 10 mg = 1 Me moria 10 mg oral 8-10 tab, PO, l tablet 19:33: Daily, # 30 tab, 2 Refill(s) busPIRone Yes 7.5 mg = 1 Me moria 7.5 mg oral 8-10 tab, PO, l tablet 19:33: BID, 0 Vin 00 Refill(s) buPROPion 0 Yes 75 mg = 1 Mem oria 75 mg oral 8-10 tab, PO, l tablet 19:33: Daily, # [place] 00 14 tab, 0 Refill(s) Norvasc No Notes: Memoria 8-10 (Same as: l 17:35: Norvasc) [place] 00 Norvasc No Notes: Memoria 8-10 (Same as: l 17:35: Norvasc) [place] 00 Norvasc No Notes: Memoria 8-10 (Same as: l 17:35: Norvasc) Vin Norvasc No Notes: Memoria 8-10 (Same as: l 17:35: Norvasc) Vin Norvasc No Notes: Memoria 8-10 (Same as: l 17:35: Norvasc) Vin Norvasc No Notes: Memoria 8-10 (Same as: l 17:35: Norvasc) [place] 00 Dextrose 0 No 25 gm, 50 Mendoza janice 50% Syringe 8-10 mL, Route: l (D50W) 13:40: IVP, Drug Jake n 00 Form: INJ, Dosing Weight 74.5, kg, ONCE, Start date: 01/28/21 8:40:00 CDT, Stop date: 01/28/21 8:40:00 CDT, Dextrose 50%: 25 gm = 50 mL, 0 Dextrose 202-0 No 25 gm, 50 Mendoza janice 50% Syringe 8-10 mL, Route: l (D50W) 13:40: IVP, Drug Jake n 00 Form: INJ, Dosing Weight 74.5, kg, ONCE, Start date: 01/28/21 8:40:00 CDT, Stop date: 01/28/21 8:40:00 CDT, Dextrose 50%: 25 gm = 50 mL, 0 Dextrose 2021-0 No 25 gm, 50 Mendoza janice 50% Syringe 8-10 mL, Route: l (D50W) 13:40: IVP, Drug Jake n 00 Form: INJ, Dosing Weight 74.5, kg, ONCE, Start date: 01/28/21 8:40:00 CDT, Stop date: 01/28/21 8:40:00 CDT, Dextrose 50%: 25 gm = 50 mL, 0 Dextrose 2021-0 No 25 gm, 50 Mendoza janice 50% Syringe 8-10 mL, Route: l (D50W) 13:40: IVP, Drug Jake n 00 Form: INJ, Dosing Weight 74.5, kg, ONCE, Start date: 01/28/21 8:40:00 CDT, Stop date: 01/28/21 8:40:00 CDT, Dextrose 50%: 25 gm = 50 mL, 0 Dextrose 2020-0 No 25 gm, 50 Mendoza janice 50% Syringe 8-10 mL, Route: l (D50W) 13:40: IVP, Drug Jake n 00 Form: INJ, Dosing Weight 74.5, kg, ONCE, Start date: 01/28/21 8:40:00 CDT, Stop date: 01/28/21 8:40:00 CDT, Dextrose 50%: 25 gm = 50 mL, 0 Dextrose 2020-0 No 25 gm, 50 Mendoza janice 50% Syringe 8-10 mL, Route: l (D50W) 13:40: IVP, Drug Jake n 00 Form: INJ, Dosing Weight 74.5, kg, ONCE, Start date: 01/28/21 8:40:00 CDT, Stop date: 01/28/21 8:40:00 CDT, Dextrose 50%: 25 gm = 50 mL, 0 Epogen No Notes: 01-27 WASTE: F/P l 22:00: - Red; E Vin 00 Red MEDICIATIO N WASTE Product Size: 2,000 unit Product Wasted: ____unit Epogen No Notes: 01-27 WASTE: F/P l 22:00: - Red; Carlos Banuelos 00 Red MEDICIATIO N WASTE Product Size: 2,000 unit Product Wasted: ____unit Epogen No Notes: 01-27 WASTE: F/P l 22:00: - Red; Carlos Banuelos 00 Red MEDICIATIO N WASTE Product Size: 2,000 unit Product Wasted: ____unit Epogen No Notes: 01-27 WASTE: F/P l 22:00: - Red; E [place] 00 Red MEDICIATIO N WASTE Product Size: 2,000 unit Product Wasted: ____unit Epogen No Notes: 01-27 WASTE: F/P l 22:00: - Red; E Vin 00 Red MEDICIATIO N WASTE Product Size: 2,000 unit Product Wasted: ____unit Epogen No Notes: [place] 01-27 WASTE: F/P l 22:00: - Red; E [place] Red MEDICIATIO N WASTE Product Size: 2,000 unit Product Wasted: ____unit D5NS 1,000 No 1,000 mL, Me moria mL 01-27 Rate: 20 l 20:28: ml/hr, Vin 00 Infuse over: 50 hr, Route: IV, Dosing Weight 74.5 kg, Total Volume: 1,000, Start date: 01/27/21 15:28:00 CDT, Duration: 30 day, Stop date: 02/26/21 15:27:00 CDT, BSA: 1.79 m2, 0 D5NS 1,000 No 1,000 mL, Me moria mL 01-27 Rate: 20 l 20:28: ml/hr, Vin 00 Infuse over: 50 hr, Route: IV, Dosing Weight 74.5 kg, Total Volume: 1,000, Start date: 01/27/21 15:28:00 CDT, Duration: 30 day, Stop date: 02/26/21 15:27:00 CDT, BSA: 1.79 m2, 0 D5NS 1,000 No 1,000 mL, Me moria mL 01-27 Rate: 20 l 20:28: ml/hr, Vin 00 Infuse over: 50 hr, Route: IV, Dosing Weight 74.5 kg, Total Volume: 1,000, Start date: 01/27/21 15:28:00 CDT, Duration: 30 day, Stop date: 02/26/21 15:27:00 CDT, BSA: 1.79 m2, 0 D5NS 1,000 No 1,000 mL, Me moria mL 01-27 Rate: 20 l 20:28: ml/hr, [place] 00 Infuse over: 50 hr, Route: IV, Dosing Weight 74.5 kg, Total Volume: 1,000, Start date: 01/27/21 15:28:00 CDT, Duration: 30 day, Stop date: 02/26/21 15:27:00 CDT, BSA: 1.79 m2, 0 D5NS 1,000 No 1,000 mL, Me moria mL 8- Rate: 20 l 20:28: ml/hr, [place] 00 Infuse over: 50 hr, Route: IV, Dosing Weight 74.5 kg, Total Volume: 1,000, Start date: 01/27/21 15:28:00 CDT, Duration: 30 day, Stop date: 02/26/21 15:27:00 CDT, BSA: 1.79 m2, 0 D5NS 1,000 No 1,000 mL, Me moria mL 01-27 Rate: 20 l 20:28: ml/hr, Vin 00 Infuse over: 50 hr, Route: IV, Dosing Weight 74.5 kg, Total Volume: 1,000, Start date: 01/27/21 15:28:00 CDT, Duration: 30 day, Stop date: 02/26/21 15:27:00 CDT, BSA: 1.79 m2, 0 Tylenol No Notes: Do Memor ia 01-27 not exceed l 09:29: 4 gm/day. Vin 00 (Same as: Tylenol) tramadol No Notes: Not Mem oria hydrochlori - to exceed l de 50 MG 09:29: 400mg/day. Her braden Oral Tablet 00 (Same As: Ultram) Tylenol No Notes: Do Memor ia - not exceed l 09:29: 4 gm/day. [place] 00 (Same as: Tylenol) tramadol No Notes: Not Mem oria hydrochlori - to exceed l de 50 MG 09:29: 400mg/day. Her braden Oral Tablet 00 (Same As: Ultram) Tylenol No Notes: Do Memor ia 8- not exceed l 09:29: 4 gm/day. Vin 00 (Same as: Tylenol) tramadol No Notes: Not Mem oria hydrochlori 8- to exceed l de 50 MG 09:29: 400mg/day. Her braden Oral Tablet 00 (Same As: Ultram) Tylenol No Notes: Do Memor ia 8- not exceed l 09:29: 4 gm/day. [place] 00 (Same as: Tylenol) tramadol No Notes: Not Mem oria hydrochlori 01-27 to exceed l de 50 MG 09:29: 400mg/day. Her braden Oral Tablet 00 (Same As: Ultram) Tylenol No Notes: Do Memor ia 01-27 not exceed l 09:29: 4 gm/day. Vin 00 (Same as: Tylenol) tramadol No Notes: Not Mem oria hydrochlori 01-27 to exceed l de 50 MG 09:29: 400mg/day. Her braden Oral Tablet 00 (Same As: Ultram) Tylenol No Notes: Do Memor ia 01-27 not exceed l 09:29: 4 gm/day. Vin 00 (Same as: Tylenol) tramadol No Notes: Not Mem oria hydrochlori 01-27 to exceed l de 50 MG 09:29: 400mg/day. Her braden Oral Tablet 00 (Same As: Ultram) heparin No Notes: Memoria 01-27 porcine l 02:00: heparin [place] 00 heparin No Notes: Memoria 01-27 porcine l 02:00: heparin Vin 00 heparin No Notes: Memoria 01-27 porcine l 02:00: heparin [place] 00 heparin No Notes: Memoria 01-27 porcine l 02:00: heparin Vin 00 heparin No Notes: Memoria 01-27 porcine l 02:00: heparin [place] 00 heparin No Notes: Memoria 01-27 porcine l 02:00: heparin Vin 00 Magnesium No Notes: Memori a Oxide - (Same as: l 22:54: Mag-Ox Vin 00 400) Magnesium oxide 313ev=231q g elemental magnesium Dose=____m g magnesium oxide (___mg elemental magnesium) Magnesium No Notes: Memori a Oxide 8- (Same as: l 22:54: Mag-Ox Vin 00 400) Magnesium oxide 217ov=252q g elemental magnesium Dose=____m g magnesium oxide (___mg elemental magnesium) Magnesium No Notes: Memori a Oxide 8- (Same as: l 22:54: Mag-Ox [place] 00 400) Magnesium oxide 121us=643a g elemental magnesium Dose=____m g magnesium oxide (___mg elemental magnesium) Magnesium No Notes: Memori a Oxide 8-05 (Same as: l 22:54: Mag-Ox Vin 400) Magnesium oxide 514wm=597l g elemental magnesium Dose=____m g magnesium oxide (___mg elemental magnesium) Magnesium No Notes: Memori a Oxide 8-05 (Same as: l 22:54: Mag-Ox Vin 400) Magnesium oxide 220xj=185l g elemental magnesium Dose=____m g magnesium oxide (___mg elemental magnesium) Magnesium No Notes: Memori a Oxide 8-05 (Same as: l 22:54: Mag-Ox Vin 400) Magnesium oxide 380af=705i g elemental magnesium Dose=____m g magnesium oxide (___mg elemental magnesium) Coreg No Notes: Memoria 8-05 Give with l 02:00: food. Vin (Same As: Coreg) Coreg No Notes: Memoria 8-05 Give with l 02:00: food. [place] 00 (Same As: Coreg) Coreg No Notes: Memoria 8-05 Give with l 02:00: food. [place] (Same As: Coreg) Coreg No Notes: Memoria 8-05 Give with l 02:00: food. Vin 00 (Same As: Coreg) Coreg No Notes: Memoria 8-05 Give with l 02:00: food. [place] 00 (Same As: Coreg) Coreg No Notes: Memoria 8-05 Give with l 02:00: food. [place] 00 (Same As: Coreg) Buspar No Notes: Memoria 8-04 (Same As: l 22:00: BuSpar) Vin 00 Buspar No Notes: Memoria 8-04 (Same As: l 22:00: BuSpar) Vin 00 Buspar No Notes: Memoria 8-04 (Same As: l 22:00: BuSpar) Vin 00 Buspar No Notes: Memoria 8-04 (Same As: l 22:00: BuSpar) [place] 00 Buspar No Notes: Memoria 8-04 (Same As: l 22:00: BuSpar) Vin Buspar No Notes: Memoria 8-04 (Same As: l 22:00: BuSpar) [place] 00 Fentanyl No Notes: Memoria 8-04 (Same as: l 21:06: Sublimaze) [place] Preservat montse free. Fentanyl No Notes: Memoria 8-04 (Same as: l 21:06: Sublimaze) Vin 00 Preservat montse free. Fentanyl No Notes: Memoria 8-04 (Same as: l 21:06: Sublimaze) [place] Preservat montse free. Fentanyl No Notes: Memoria 8-04 (Same as: l 21:06: Sublimaze) [place] 00 Preservat montse free. Fentanyl No Notes: Memoria 8-04 (Same as: l 21:06: Sublimaze) [place] 00 Preservat montse free. Fentanyl No Notes: Memoria 8-04 (Same as: l 21:06: Sublimaze) [place] 00 Preservat montse free. Norvasc No Notes: Memoria 8-04 (Same as: l 16:47: Norvasc) [place] 00 Norvasc No Notes: Memoria 8-04 (Same as: l 16:47: Norvasc) [place] 00 Norvasc No Notes: Memoria 8-04 (Same as: l 16:47: Norvasc) [place] Norvasc No Notes: Memoria 8-04 (Same as: l 16:47: Norvasc) [place] Norvasc No Notes: Memoria 8-04 (Same as: l 16:47: Norvasc) Vin 00 Norvasc No Notes: Memoria 8-04 (Same as: l 16:47: Norvasc) [place] 00 Wellbutrin No Notes: Memor ia 8-04 (Same As: l 16:00: Wellbutrin Vin 00 ) Wellbutrin No Notes: Memor ia 8-04 (Same As: l 16:00: Wellbutrin ) Wellbutrin No Notes: Memor ia 8-04 (Same As: l 16:00: Wellbutrin ) Wellbutrin No Notes: Memor ia 8-04 (Same As: l 16:00: Wellbutrin ) Wellbutrin No Notes: Memor ia 8-04 (Same As: l 16:00: Wellbutrin ) Wellbutrin No Notes: Memor ia 8-04 (Same As: l 16:00: Wellbutrin ) pantoprazol No Notes: For Memoria e 8-04 IV push l 14:00: reconstitu te with 10 ml 0.9% sodium chloride and push over 2 minutes. (Same as: Protonix) Aspirin 81 No Notes: Memor ia MG Chewable 8-04 Take with l Tablet 14:00: food. Vitamin D3 No Notes: Memor ia 5000 [...] a 8-04 (Same as: l 14:00: Cardura) Furosemide No Notes: Memor ia 40 MG Oral 8-04 (Same as: l Tablet 14:00: Lasix) May cause GI upset. Give with food or milk. Tradjenta No 5 mg, 1 Memor ia 8-04 tab, l 14:00: Route: PO, Drug form: TAB, Daily, Dosing Weight 72, kg, Start date: 01/22/21 9:00:00 CDT Metoprolol No Notes: Memor ia Succinate 8-04 (Same as: l ER 100 mg 14:00: Toprol XL) He rmann oral 00 May split tablet, tab, but extended do not release crush. Pravastatin No Notes: Mendoza janice 8-04 (Same as: l 14:00: Pravachol) Zoloft No Notes: Memoria 8-04 (Same as: l 14:00: Zoloft) pantoprazol No Notes: For Memoria e 8-04 IV push l 14:00: reconstitu te with 10 ml 0.9% sodium chloride and push over 2 minutes. (Same as: Protonix) Aspirin 81 No Notes: Memor ia MG Chewable 8- Take with l Tablet 14:00: food. Vitamin D3 No Notes: Memor ia 5000 intl 8- Same as : l units oral 14:00: [...] a 8-04 (Same as: l 14:00: Cardura) Furosemide No Notes: Memor ia 40 MG Oral 8-04 (Same as: l Tablet 14:00: Lasix) May cause GI upset. Give with food or milk. Tradjenta No 5 mg, 1 Memor ia 8-04 tab, l 14:00: Route: PO, Drug form: TAB, Daily, Dosing Weight 72, kg, Start date: 01/22/21 9:00:00 CDT Metoprolol No Notes: Memor ia Succinate 8-04 (Same as: l ER 100 mg 14:00: Toprol XL) He rmann oral 00 May split tablet, tab, but extended do not release crush. Pravastatin No Notes: Mendoza janice 8- (Same as: l 14:00: Pravachol) Zoloft No Notes: Memoria 8-04 (Same as: l 14:00: Zoloft) pantoprazol No Notes: For Memoria e 8- IV push l 14:00: reconstitu te with 10 ml 0.9% sodium chloride and push over 2 minutes. (Same as: Protonix) Aspirin 81 No Notes: Memor ia MG Chewable - Take with l Tablet 14:00: food. Vitamin D3 No Notes: Memor ia 5000 intl 01-22 Same as : l units oral 14:00: Vitamin D3 H ermann capsule 00 24 HR No Notes: Memoria Divalproex 01-22 Hazardous l Sodium 500 14:00: Drug Group H ermann MG Extended 00 2:Non-anti Release neoplastic Tablet Hazardous [Depakote] Drug -- Refer to safe handling procedure PPE Matrix (Same as: Depakote ER) Once daily dosing; indicated for migraines. Divalproe x sodium extended-r elease tab. Do not chew or crush. Doxazosin No Notes: Memori a 8- (Same as: l 14:00: Cardura) Furosemide No Notes: Memor ia 40 MG Oral 01-22 (Same as: l Tablet 14:00: Lasix) May cause GI upset. Give with food or milk. Tradjenta No 5 mg, 1 Memor ia 8- tab, l 14:00: Route: PO, Drug form: TAB, Daily, Dosing Weight 72, kg, Start date: 01/22/21 9:00:00 CDT Metoprolol No Notes: Memor ia Succinate 8-04 (Same as: l ER 100 mg 14:00: Toprol XL) He rmann oral 00 May split tablet, tab, but extended do not release crush. Pravastatin No Notes: Mendoza janice 8-04 (Same as: l 14:00: Pravachol) Zoloft No Notes: Memoria 8-04 (Same as: l 14:00: Zoloft) pantoprazol No Notes: For Memoria e 8-04 IV push l 14:00: reconstitu te with 10 ml 0.9% sodium chloride and push over 2 minutes. (Same as: Protonix) Aspirin 81 No Notes: Memor ia MG Chewable 8- Take with l Tablet 14:00: food. Vitamin D3 No Notes: Memor ia 5000 intl 8- Same as : l units oral 14:00: [...] a 8-04 (Same as: l 14:00: Cardura) Furosemide No Notes: Memor ia 40 MG Oral - (Same as: l Tablet 14:00: Lasix) May cause GI upset. Give with food or milk. Tradjenta No 5 mg, 1 Memor ia 8-04 tab, l 14:00: Route: PO, Drug form: TAB, Daily, Dosing Weight 72, kg, Start date: 01/22/21 9:00:00 CDT Metoprolol No Notes: Memor ia Succinate 8-04 (Same as: l ER 100 mg 14:00: Toprol XL) He rmann oral 00 May split tablet, tab, but extended do not release crush. Pravastatin No Notes: Mendoza janice 8-04 (Same as: l 14:00: Pravachol) Zoloft No Notes: Memoria 8-04 (Same as: l 14:00: Zoloft) pantoprazol No Notes: For Memoria e 8-04 IV push l 14:00: reconstitu te with 10 ml 0.9% sodium chloride and push over 2 minutes. (Same as: Protonix) Aspirin 81 No Notes: Memor ia MG Chewable 8-04 Take with l Tablet 14:00: food. Vitamin D3 No Notes: Memor ia 5000 intl 8- Same as : l units oral 14:00: [...] a 8-04 (Same as: l 14:00: Cardura) Furosemide No Notes: Memor ia 40 MG Oral 01-22 (Same as: l Tablet 14:00: Lasix) May cause GI upset. Give with food or milk. Tradjenta No 5 mg, 1 Memor ia 8-04 tab, l 14:00: Route: PO, Drug form: TAB, Daily, Dosing Weight 72, kg, Start date: 01/22/21 9:00:00 CDT Metoprolol No Notes: Memor ia Succinate 8-04 (Same as: l ER 100 mg 14:00: Toprol XL) He rmann oral 00 May split tablet, tab, but extended do not release crush. Pravastatin No Notes: Mendoza janice 8-04 (Same as: l 14:00: Pravachol) Zoloft No Notes: Memoria 8-04 (Same as: l 14:00: Zoloft) pantoprazol No Notes: For Memoria e 8-04 IV push l 14:00: reconstitu te with 10 ml 0.9% sodium chloride and push over 2 minutes. (Same as: Protonix) Aspirin 81 No Notes: Memor ia MG Chewable 8-04 Take with l Tablet 14:00: food. Vitamin D3 No Notes: Memor ia 5000 [...] or crush. Doxazosin No Notes: Memori a 8- (Same as: l 14:00: Cardura) Furosemide No Notes: Memor ia 40 MG Oral 01-22 (Same as: l Tablet 14:00: Lasix) May cause GI upset. Give with food or milk. Tradjenta No 5 mg, 1 Memor ia - tab, l 14:00: Route: PO, Drug form: TAB, Daily, Dosing Weight 72, kg, Start date: 01/22/21 9:00:00 CDT Metoprolol No Notes: Memor ia Succinate - (Same as: l ER 100 mg 14:00: Toprol XL) He rmann oral 00 May split tablet, tab, but extended do not release crush. Pravastatin No Notes: Mendoza janice 8-04 (Same as: l 14:00: Pravachol) Zoloft No Notes: Memoria 8-04 (Same as: l 14:00: Zoloft) Tylenol No Notes: Do Memor ia 8-04 not exceed l 09:44: 4 gm/day. Vin (Same as: Tylenol) Fentanyl No Notes: Memoria 8-04 (Same as: l 09:44: Sublimaze) Vin 00 Preservat montse free. Tramadol No Notes: Not Mem oria 8-04 to exceed l 09:44: 400mg/day. [place] 00 (Same As: Ultram) Tylenol No Notes: Do Memor ia 8-04 not exceed l 09:44: 4 gm/day. Vin 00 (Same as: Tylenol) Fentanyl No Notes: Memoria 8-04 (Same as: l 09:44: Sublimaze) [place] 00 Preservat montse free. Tramadol No Notes: Not Mem oria 8-04 to exceed l 09:44: 400mg/day. Vin 00 (Same As: Ultram) Tylenol No Notes: Do Memor ia 8-04 not exceed l 09:44: 4 gm/day. Vin 00 (Same as: Tylenol) Fentanyl No Notes: Memoria 8-04 (Same as: l 09:44: Sublimaze) Vin 00 Preservat montse free. Tramadol No Notes: Not Mem oria 8-04 to exceed l 09:44: 400mg/day. Vin 00 (Same As: Ultram) Tylenol No Notes: Do Memor ia 8-04 not exceed l 09:44: 4 gm/day. [place] 00 (Same as: Tylenol) Fentanyl No Notes: Memoria 8-04 (Same as: l 09:44: Sublimaze) [place] 00 Preservat montse free. Tramadol No Notes: Not Mem oria 8-04 to exceed l 09:44: 400mg/day. Vin 00 (Same As: Ultram) Tylenol No Notes: Do Memor ia 8-04 not exceed l 09:44: 4 gm/day. Vin 00 (Same as: Tylenol) Fentanyl No Notes: Memoria 8-04 (Same as: l 09:44: Sublimaze) [place] 00 Preservat montse free. Tramadol No Notes: Not Mem oria 8-04 to exceed l 09:44: 400mg/day. Vin 00 (Same As: Ultram) Tylenol No Notes: Do Memor ia 8-04 not exceed l 09:44: 4 gm/day. [place] 00 (Same as: Tylenol) Fentanyl No Notes: Memoria 8-04 (Same as: l 09:44: Sublimaze) [place] 00 Preservat montse free. Tramadol No Notes: Not Mem oria 8-04 to exceed l 09:44: 400mg/day. [place] 00 (Same As: Ultram) Fentanyl No Notes: Memoria 8-04 (Same as: l 04:46: Sublimaze) Vin 00 Preservat montse free. Fentanyl No Notes: Memoria 8-04 (Same as: l 04:46: Sublimaze) Vin 00 Preservat mont[place] free. Fentanyl No Notes: Memoria 8-04 (Same as: l 04:46: Sublimaze) [place] 00 Preservat montse free. Fentanyl No Notes: Memoria 8-04 (Same as: l 04:46: Sublimaze) Vin 00 Preservat montse free. Fentanyl No Notes: Memoria 8-04 (Same as: l 04:46: Sublimaze) Vin 00 Preservat mont[place] free. Fentanyl No Notes: Memoria 8-04 (Same as: l 04:46: Sublimaze) [place] 00 Preservat montse free. Fentanyl No Notes: Memoria 8-04 (Same as: l 02:01: Sublimaze) [place] 00 Preservat montse free. Fentanyl No Notes: Memoria 8-04 (Same as: l 02:01: Sublimaze) Vin 00 Preservat montse free. Fentanyl No Notes: Memoria 8-04 (Same as: l 02:01: Sublimaze) [place] 00 Preservat montse free. Fentanyl No Notes: Memoria 8-04 (Same as: l 02:01: Sublimaze) Vin 00 Preservat mont[place] free. Fentanyl No Notes: Memoria 8-04 (Same as: l 02:01: Sublimaze) Vin 00 Preservat montse free. Fentanyl No Notes: Memoria 8-04 (Same as: l 02:01: Sublimaze) Vin 00 Preservat montse free. Coreg No Notes: Memoria 8-04 Give with l 02:00: food. [place] 00 (Same As: Coreg) Saline No Notes: Memoria Flush 0.9% 8-04 Same as: l 02:00: BD [place] 00 Posiflush Sterile Valproate No 1,000 mg, Mem oria 8-04 2 tab, l 02:00: Route: PO, [place] Drug form: ERTAB, Bedtime, Start date: 01/21/21 21:00:00 CDT, Duration: 30 day, Stop date: 02/19/21 21:00:00 CDT, 0 Coreg No Notes: Memoria 8-04 Give with l 02:00: food. Vin (Same As: Coreg) Saline No Notes: [facility] Flush 0.9% 8-04 Same as: l 02:00: BD Vin 00 Posiflush Sterile Valproate No 1,000 mg, Mem oria 8-04 2 tab, l 02:00: Route: PO, Vin 00 Drug form: ERTAB, Bedtime, Start date: 01/21/21 21:00:00 CDT, Duration: 30 day, Stop date: 02/19/21 21:00:00 CDT, 0 Coreg No Notes: Memoria 8-04 Give with l 02:00: food. [place] 00 (Same As: Coreg) Saline No Notes: Mem[facility] Flush 0.9% 8-04 Same as: l 02:00: BD Vin 00 Posiflush Sterile Valproate 0 No 1,000 mg, Mem oria 8-04 2 tab, l 02:00: Route: PO, [place] 00 Drug form: ERTAB, Bedtime, Start date: 01/21/21 21:00:00 CDT, Duration: 30 day, Stop date: 02/19/21 21:00:00 CDT, 0 Coreg No Notes: Memoria 8-04 Give with l 02:00: food. [place] 00 (Same As: Coreg) Saline No Notes: [facility] Flush 0.9% 8-04 Same as: l 02:00: BD [place] 00 Posiflush Sterile Valproate No 1,000 mg, Mem oria 8-04 2 tab, l 02:00: Route: PO, Vin 00 Drug form: ERTAB, Bedtime, Start date: 01/21/21 21:00:00 CDT, Duration: 30 day, Stop date: 02/19/21 21:00:00 CDT, 0 Coreg No Notes: Memoria 8-04 Give with l 02:00: food. [place] 00 (Same As: Coreg) Saline No Notes: [facility] Flush 0.9% 8-04 Same as: l 02:00: BD Vin 00 Posiflush Sterile Valproate No 1,000 mg, Mem oria 8-04 2 tab, l 02:00: Route: PO, [place] 00 Drug form: ERTAB, Bedtime, Start date: 01/21/21 21:00:00 CDT, Duration: 30 day, Stop date: 02/19/21 21:00:00 CDT, 0 Coreg No Notes: Memoria 8-04 Give with l 02:00: food. Vin 00 (Same As: Coreg) Saline No Notes: [facility] Flush 0.9% 8-04 Same as: l 02:00: BD [place] 00 Posiflush Sterile Valproate 0 No 1,000 mg, Mem oria 8-04 2 tab, l 02:00: Route: PO, Vin 00 Drug form: ERTAB, Bedtime, Start date: 01/21/21 21:00:00 CDT, Duration: 30 day, Stop date: 02/19/21 21:00:00 CDT, 0 heparin No Notes: Memoria 8-03 porcine l 21:00: heparin [place] 00 heparin No Notes: Memoria 8-03 porcine l 21:00: heparin Vin 00 heparin No Notes: Memoria 8-03 porcine l 21:00: heparin Vin 00 heparin 2021-0 No Notes: Memoria -03 porcine l 21:00: heparin heparin 2020-0 No Notes: Memoria -03 porcine l 21:00: heparin heparin 2020-0 No Notes: Memoria -03 porcine l 21:00: heparin Dextrose 2020-0 No 12.5 gm, Memor ia 50% Syringe 01-21 25 mL, l (D50W) 20:01: Route: Vin IVP, Drug Form: INJ, Dosing Weight 74.5, kg, PRN, PRN Blood Glucose Results, Start date: 01/21/21 15:01:00 CDT, Duration: 30 day, Stop date: 02/20/21 15:00:00 CDT, 0 Glucagon 2020-0 No 1 mg, Memoria 01-21 Route: IM, l 20:01: Drug form: [place] PDR/INJ, PRN, Dosing Weight 74.5, kg, PRN Blood Glucose Results, Start date: 01/21/21 15:01:00 CDT, Duration: 30 day, Stop date: 02/20/21 15:00:00 CDT, 0 Insulin 2020-0 No Notes: Memoria Lispro 01-21 (Same as: l 20:01: Humalog) Roll in palms of hands gently; Do not shake vigorously . WASTE: F/P - Black; E - Municipal Trash Bin Stable for 28 days at room temperatur e. Expires in days from ____Date Dextrose 0 No 12.5 gm, Memor ia 50% Syringe 01-21 25 mL, l (D50W) 20:01: Route: IVP, Drug Form: INJ, Dosing Weight 74.5, kg, PRN, PRN Blood Glucose Results, Start date: 01/21/21 15:01:00 CDT, Duration: 30 day, Stop date: 02/20/21 15:00:00 CDT, 0 Glucagon 2020-0 No 1 mg, Memoria 01-21 Route: IM, l 20:01: Drug form: Vin PDR/INJ, PRN, Dosing Weight 74.5, kg, PRN Blood Glucose Results, Start date: 01/21/21 15:01:00 CDT, Duration: 30 day, Stop date: 02/20/21 15:00:00 CDT, 0 Insulin 2020-0 No Notes: [facility] Lispro 8-03 (Same as: l 20:01: Humalog) Vin 00 Roll in palms of hands gently; Do not shake vigorously . WASTE: F/P - Black; E - Municipal Trash Bin Stable for 28 days at room temperatur e. Expires in days from ____Date Dextrose 2020-0 No 12.5 gm, Memor ia 50% Syringe 8- 25 mL, l (D50W) 20:01: Route: [place] 00 IVP, Drug Form: INJ, Dosing Weight 74.5, kg, PRN, PRN Blood Glucose Results, Start date: 01/21/21 15:01:00 CDT, Duration: 30 day, Stop date: 02/20/21 15:00:00 CDT, 0 Glucagon 2020-0 No 1 mg, Memoria 8-03 Route: IM, l 20:01: Drug form: Vin 00 PDR/INJ, PRN, Dosing Weight 74.5, kg, PRN Blood Glucose Results, Start date: 01/21/21 15:01:00 CDT, Duration: 30 day, Stop date: 02/20/21 15:00:00 CDT, 0 Insulin 2020-0 No Notes: [facility] Lispro 8-03 (Same as: l 20:01: Humalog) [place] 00 Roll in palms of hands gently; Do not shake vigorously . WASTE: F/P - Black; E - Municipal Trash Bin Stable for 28 days at room temperatur e. Expires in days from ____Date Dextrose 2020-0 No 12.5 gm, Memor ia 50% Syringe 8- 25 mL, l (D50W) 20:01: Route: Vin 00 IVP, Drug Form: INJ, Dosing Weight 74.5, kg, PRN, PRN Blood Glucose Results, Start date: 01/21/21 15:01:00 CDT, Duration: 30 day, Stop date: 02/20/21 15:00:00 CDT, 0 Glucagon 2020-0 No 1 mg, Memoria 8- Route: IM, l 20:01: Drug form: [place] 00 PDR/INJ, PRN, Dosing Weight 74.5, kg, PRN Blood Glucose Results, Start date: 01/21/21 15:01:00 CDT, Duration: 30 day, Stop date: 02/20/21 15:00:00 CDT, 0 Insulin 202-0 No Notes: [facility] Lispro 8-03 (Same as: l 20:01: Humalog) Vin 00 Roll in palms of hands gently; Do not shake vigorously . WASTE: F/P - Black; E - Municipal Trash Bin Stable for 28 days at room temperatur e. Expires in days from ____Date Dextrose 2020-0 No 12.5 gm, Memor ia 50% Syringe 01-21 25 mL, l (D50W) 20:01: Route: [place] 00 IVP, Drug Form: INJ, Dosing Weight 74.5, kg, PRN, PRN Blood Glucose Results, Start date: 01/21/21 15:01:00 CDT, Duration: 30 day, Stop date: 02/20/21 15:00:00 CDT, 0 Glucagon 2020-0 No 1 mg, Memoria 01-21 Route: IM, l 20:01: Drug form: [place] 00 PDR/INJ, PRN, Dosing Weight 74.5, kg, PRN Blood Glucose Results, Start date: 01/21/21 15:01:00 CDT, Duration: 30 day, Stop date: 02/20/21 15:00:00 CDT, 0 Insulin 2020-0 No Notes: [facility] Lispro 8- (Same as: l 20:01: Humalog) Vin 00 Roll in palms of hands gently; Do not shake vigorously . WASTE: F/P - Black; E - Municipal Trash Bin Stable for 28 days at room temperatur e. Expires in days from ____Date Dextrose 2020-0 No 12.5 gm, Memor ia 50% Syringe 01-21 25 mL, l (D50W) 20:01: Route: Vin IVP, Drug Form: INJ, Dosing Weight 74.5, kg, PRN, PRN Blood Glucose Results, Start date: 01/21/21 15:01:00 CDT, Duration: 30 day, Stop date: 02/20/21 15:00:00 CDT, 0 Glucagon No 1 mg, Memoria 01-21 Route: IM, l 20:01: Drug form: Vin 00 PDR/INJ, PRN, Dosing Weight 74.5, kg, PRN [...] 01-21 (Same as: l Capsule 19:58: Neurontin) gabapentin No Notes: Memor ia 300 MG Oral 01-21 (Same as: l Capsule 19:58: Neurontin) gabapentin No Notes: Memor ia 300 MG Oral 01-21 (Same as: l Capsule 19:58: Neurontin) naeem gabapentin No Notes: Memor ia 300 MG Oral 01-21 (Same as: l Capsule 19:58: Neurontin) Herm naeem gabapentin No Notes: Memor ia 300 MG Oral - (Same as: l Capsule 19:58: Neurontin) Herm naeem gabapentin No Notes: Memor ia 300 MG Oral - (Same as: l Capsule 19:58: Neurontin) Herm naeem Cardene 40 No Notes: Memor ia mg in NS 01-21 Same as: l 200 mL 18:26: Cardene Vin (Titrate.) 00 Concentrat IV 40 mg ion: (0.2 mg /1 ml ) Cardene 40 No Notes: Memor ia mg in NS 01-21 Same as: l 200 mL 18:26: Cardene [place] (Titrate.) 00 Concentrat IV 40 mg ion: (0.2 mg /1 ml ) Cardene 40 No Notes: Memor ia mg in NS 01-21 Same as: l 200 mL 18:26: Cardene Vin (Titrate.) 00 Concentrat IV 40 mg ion: (0.2 mg /1 ml ) Cardene 40 No Notes: Memor ia mg in NS 01-21 Same as: l 200 mL 18:26: Cardene [place] (Titrate.) 00 Concentrat IV 40 mg ion: (0.2 mg /1 ml ) Cardene 40 No Notes: Memor ia mg in NS 01-21 Same as: l 200 mL 18:26: Cardene Vin (Titrate.) 00 Concentrat IV 40 mg ion: (0.2 mg /1 ml ) Cardene 40 No Notes: Memor ia mg in NS 01-21 Same as: l 200 mL 18:26: Cardene Vin (Titrate.) 00 Concentrat IV 40 mg ion: (0.2 mg /1 ml ) Cyproheptad 2020-0 No 4 mg, 1 Mem oria ine 8-03 tab, l 18:00: Route: PO, [place] 00 Drug form: TAB, TID, Dosing Weight 72, kg, Start date: 01/21/21 13:00:00 CDT, Duration: 30 day, Stop date: 02/20/21 9:00:00 CDT Cyproheptad 2020-0 No 4 mg, 1 Mem oria ine 8-03 tab, l 18:00: Route: PO, Vin 00 Drug form: TAB, TID, Dosing Weight 72, kg, Start date: 01/21/21 13:00:00 CDT, Duration: 30 day, Stop date: 02/20/21 9:00:00 CDT Cyproheptad 1-0 No 4 mg, 1 Mem oria ine 8-03 tab, l 18:00: Route: PO, Vin 00 Drug form: TAB, TID, Dosing Weight 72, kg, Start date: 01/21/21 13:00:00 CDT, Duration: 30 day, Stop date: 02/20/21 9:00:00 CDT Cyproheptad 1-0 No 4 mg, 1 Mem oria ine 8-03 tab, l 18:00: Route: PO, [place] 00 Drug form: TAB, TID, Dosing Weight 72, kg, Start date: 01/21/21 13:00:00 CDT, Duration: 30 day, Stop date: 02/20/21 9:00:00 CDT Cyproheptad 1-0 No 4 mg, 1 Mem oria ine 8-03 tab, l 18:00: Route: PO, [place] 00 Drug form: TAB, TID, Dosing Weight 72, kg, Start date: 01/21/21 13:00:00 CDT, Duration: 30 day, Stop date: 02/20/21 9:00:00 CDT Cyproheptad 1-0 No 4 mg, 1 Mem oria ine 8-03 tab, l 18:00: Route: PO, [place] 00 Drug form: TAB, TID, Dosing Weight 72, kg, Start date: 01/21/21 13:00:00 CDT, Duration: 30 day, Stop date: 02/20/21 9:00:00 CDT Albuterol No Notes: SEE Me moria 8 RT l 17:49: DOCUMENTAT [place] 00 ION (Same as: Proventil) Albuterol No Notes: SEE Me moria 8 RT l 17:49: DOCUMENTAT [place] 00 ION (Same as: Proventil) Albuterol No Notes: SEE Me moria 8 RT l 17:49: DOCUMENTAT Vin 00 ION (Same as: Proventil) Albuterol No Notes: SEE Me moria 8 RT l 17:49: DOCUMENTAT Vin 00 ION (Same as: Proventil) Albuterol No Notes: SEE Me moria 8 RT l 17:49: DOCUMENTAT Vin 00 ION (Same as: Proventil) Albuterol No Notes: SEE Me moria 8- RT l 17:49: DOCUMENTAT Vin 00 ION (Same as: Proventil) albuterol 2020-0 No 180 Memoria 90 mcg/inh 8-03 microgram, l inhalation 17:33: 2 puff, Herm naeem aerosol 00 Route: INHALATION , Drug Form: AERO/A, Dosing Weight 72, kg, PRN, PRN Wheezing, Start date: 01/21/21 12:33:00 CDT, Duration: 30 day, Stop date: 02/20/21 12:32:00 CDT albuterol 2020-0 No 180 Memoria 90 mcg/inh 8-03 microgram, l inhalation 17:33: 2 puff, Herm naeem aerosol 00 Route: INHALATION , Drug Form: AERO/A, Dosing Weight 72, kg, PRN, PRN Wheezing, Start date: 01/21/21 12:33:00 CDT, Duration: 30 day, Stop date: 02/20/21 12:32:00 CDT albuterol 2020-0 No 180 Memoria 90 mcg/inh 8-03 microgram, l inhalation 17:33: 2 puff, Herm naeem aerosol 00 Route: INHALATION , Drug Form: AERO/A, Dosing Weight 72, kg, PRN, PRN Wheezing, Start date: 01/21/21 12:33:00 CDT, Duration: 30 day, Stop date: 02/20/21 12:32:00 CDT albuterol 2020-0 No 180 Memoria 90 mcg/inh 8-03 microgram, l inhalation 17:33: 2 puff, Herm naeem aerosol 00 Route: INHALATION , Drug Form: AERO/A, Dosing Weight 72, kg, PRN, PRN Wheezing, Start date: 01/21/21 12:33:00 CDT, Duration: 30 day, Stop date: 02/20/21 12:32:00 CDT albuterol 2020-0 No 180 Memoria 90 mcg/inh 8-03 microgram, l inhalation 17:33: 2 puff, Herm naeem aerosol 00 Route: INHALATION , Drug Form: AERO/A, Dosing Weight 72, kg, PRN, PRN Wheezing, Start date: 01/21/21 12:33:00 CDT, Duration: 30 day, Stop date: 02/20/21 12:32:00 CDT albuterol No 180 Memoria 90 mcg/inh 8-03 microgram, l inhalation 17:33: 2 puff, Herm naeem aerosol 00 Route: INHALATION , Drug Form: AERO/A, Dosing Weight 72, kg, PRN, PRN Wheezing, Start date: 01/21/21 12:33:00 CDT, Duration: 30 day, Stop date: 02/20/21 12:32:00 CDT Nystatin No Notes: Memoria 100 UNT/MG 8-03 (Same l Topical 17:31: as:Mycosta Herm naeem Powder 00 tin, Nilstat) For external use only. Saline No Notes: Memoria Flush 0.9% 8-03 Same as: l 17:31: BD [place] 00 Posiflush Sterile propofol No Notes: If M emoria mg/mL 8-03 Diprivan - l (Titrate.) 17:31: change Nidia nn IV 1,000 mg 00 bottle & tubing every 12 hr Per state nursing law propofol can only be given by a nurse if patient is intubated or being intubated (unless the nurse is a WILL CALL CLERK). Same as: Diprivan Nystatin No Notes: Memoria 100 UNT/MG 8-03 (Same l Topical 17:31: as:Mycosta Herm naeem Powder 00 tin, Nilstat) For external use only. Saline No Notes: Memoria Flush 0.9% 8-03 Same as: l 17:31: BD Vin 00 Posiflush Sterile propofol No Notes: If M emoria mg/mL 8-03 Diprivan - l (Titrate.) 17:31: change Nidia nn IV 1,000 mg 00 bottle & tubing every 12 hr Per state nursing law propofol can only be given by a nurse if patient is intubated or being intubated (unless the nurse is a WILL CALL CLERK). Same as: Diprivan Nystatin No Notes: Memoria 100 UNT/MG 8-03 (Same l Topical 17:31: as:Mycosta Herm naeem Powder 00 tin, Nilstat) For external use only. Saline No Notes: [facility] Flush 0.9% 8-03 Same as: l 17:31: BD Vin 00 Posiflush Sterile propofol No Notes: If M emoria mg/mL 8-03 Diprivan - l (Titrate.) 17:31: change Nidia nn IV 1,000 mg 00 bottle & tubing every 12 hr Per state nursing law propofol can only be given by a nurse if patient is intubated or being intubated (unless the nurse is a WILL CALL CLERK). Same as: Diprivan Nystatin No Notes: Memoria 100 UNT/MG 8-03 (Same l Topical 17:31: as:Mycosta Herm naeem Powder 00 tin, Nilstat) For external use only. Saline No Notes: Memoria Flush 0.9% 8-03 Same as: l 17:31: BD Vin 00 Posiflush Sterile propofol No Notes: If M emoria mg/mL 8-03 Diprivan - l (Titrate.) 17:31: change Nidia nn IV 1,000 mg 00 bottle & tubing every 12 hr Per state nursing law propofol can only be given by a nurse if patient is intubated or being intubated (unless the nurse is a WILL CALL CLERK). Same as: Diprivan Nystatin No Notes: Memoria 100 UNT/MG 8-03 (Same l Topical 17:31: as:Mycosta Herm naeem Powder 00 tin, Nilstat) For external use only. Saline No Notes: Memoria Flush 0.9% 8-03 Same as: l 17:31: BD Vin 00 Posiflush Sterile propofol No Notes: If M emoria mg/mL 8-03 Diprivan - l (Titrate.) 17:31: change Nidia nn IV 1,000 mg 00 bottle & tubing every 12 hr Per state nursing law propofol can only be given by a nurse if patient is intubated or being intubated (unless the nurse is a WILL CALL CLERK). Same as: Diprivan Nystatin No Notes: Memoria 100 UNT/MG 8-03 (Same l Topical 17:31: as:Mycosta Herm naeem Powder 00 tin, Nilstat) For external use only. Saline No Notes: Memoria Flush 0.9% 8-03 Same as: l 17:31: BD Vin 00 Posiflush Sterile propofol 10 No Notes: If M emoria mg/mL 01-21 Diprivan - l (Titrate.) 17:31: change Nidia nn IV 1,000 mg 00 bottle & tubing every 12 hr Per state nursing law propofol can only be given by a nurse if patient is intubated or being intubated (unless the nurse is a WILL CALL CLERK). Same as: Diprivan midazolam No Route: IV, Me moria (ANES) 01-21 Drug form: l 17:18: SOLN, [place] 00 ONCE, Stop date: 01/21/21 12:18:00 CDT fentaNYL No Route: IV, Mem oria (ANES) 01-21 Drug form: l 17:18: INJ, ONCE, Vin 00 Stop date: 01/21/21 12:18:00 CDT niCARdipine No Route: IV, Memoria (ANES) 01-21 Drug form: l 17:18: INJ, ONCE, Vin 00 Stop date: 01/21/21 12:18:00 CDT midazolam No Route: IV, Me moria (ANES) 01-21 Drug form: l 17:18: SOLN, Vin 00 ONCE, Stop date: 01/21/21 12:18:00 CDT fentaNYL No Route: IV, Mem oria (ANES) 01-21 Drug form: l 17:18: INJ, ONCE, Vin 00 Stop date: 01/21/21 12:18:00 CDT niCARdipine No Route: IV, Memoria (ANES) 01-21 Drug form: l 17:18: INJ, ONCE, Vin 00 Stop date: 01/21/21 12:18:00 CDT midazolam No Route: IV, Me moria (ANES) 01-21 Drug form: l 17:18: SOLN, [place] 00 ONCE, Stop date: 01/21/21 12:18:00 CDT fentaNYL No Route: IV, Mem oria (ANES) 01-21 Drug form: l 17:18: INJ, ONCE, Vin 00 Stop date: 01/21/21 12:18:00 CDT niCARdipine 2020-0 No Route: IV, Memoria (ANES) 01-21 Drug form: l 17:18: INJ, ONCE, Vin 00 Stop date: 01/21/21 12:18:00 CDT midazolam 2020-0 No Route: IV, Me moria (ANES) 01-21 Drug form: l 17:18: SOLN, Vin ONCE, Stop date: 01/21/21 12:18:00 CDT fentaNYL 2020-0 No Route: IV, Mem oria (ANES) 01-21 Drug form: l 17:18: INJ, ONCE, [place] 00 Stop date: 01/21/21 12:18:00 CDT niCARdipine 2020-0 No Route: IV, Memoria (ANES) 01-21 Drug form: l 17:18: INJ, ONCE, Vin 00 Stop date: 01/21/21 12:18:00 CDT midazolam 2020-0 No Route: IV, Me moria (ANES) 01-21 Drug form: l 17:18: SOLN, [place] ONCE, Stop date: 01/21/21 12:18:00 CDT fentaNYL 2020-0 No Route: IV, Mem oria (ANES) 01-21 Drug form: l 17:18: INJ, ONCE, Vin 00 Stop date: 01/21/21 12:18:00 CDT niCARdipine 2020-0 No Route: IV, Memoria (ANES) 01-21 Drug form: l 17:18: INJ, ONCE, [place] 00 Stop date: 01/21/21 12:18:00 CDT midazolam 2020-0 No Route: IV, Me moria (ANES) 01-21 Drug form: l 17:18: SOLN, [place] ONCE, Stop date: 01/21/21 12:18:00 CDT fentaNYL 2020-0 No Route: IV, Mem oria (ANES) 01-21 Drug form: l 17:18: INJ, ONCE, Vin 00 Stop date: 01/21/21 12:18:00 CDT niCARdipine 2020-0 No Route: IV, Memoria (ANES) 01-21 Drug form: l 17:18: INJ, ONCE, [place] 00 Stop date: 01/21/21 12:18:00 CDT glycopyrrol 0 No Route: IV, Memoria ate (ANES) 01-21 Drug form: l 16:20: INJ, ONCE, Stop date: 01/21/21 11:20:00 CDT EPINEPHrine 2020-0 No Route: IV, Memoria (ANES) 01-21 Drug form: l 16:20: INJ, ONCE, Stop date: 01/21/21 11:20:00 CDT glycopyrrol 0 No Route: IV, Memoria ate (ANES) 01-21 Drug form: l 16:20: INJ, ONCE, Stop date: 01/21/21 11:20:00 CDT EPINEPHrine 0 No Route: IV, Memoria (ANES) 01-21 Drug form: l 16:20: INJ, ONCE, Stop date: 01/21/21 11:20:00 CDT glycopyrrol 0 No Route: IV, Memoria ate (ANES) 01-21 Drug form: l 16:20: INJ, ONCE, Stop date: 01/21/21 11:20:00 CDT EPINEPHrine 0 No Route: IV, Memoria (ANES) 01-21 Drug form: l 16:20: INJ, ONCE, Stop date: 01/21/21 11:20:00 CDT glycopyrrol 0 No Route: IV, Memoria ate (ANES) 01-21 Drug form: l 16:20: INJ, ONCE, Stop date: 01/21/21 11:20:00 CDT EPINEPHrine 2020-0 No Route: IV, Memoria (ANES) 01-21 Drug form: l 16:20: INJ, ONCE, Stop date: 01/21/21 11:20:00 CDT glycopyrrol 0 No Route: IV, Memoria ate (ANES) 01-21 Drug form: l 16:20: INJ, ONCE, Stop date: 01/21/21 11:20:00 CDT EPINEPHrine 0 No Route: IV, Memoria (ANES) 01-21 Drug form: l 16:20: INJ, ONCE, Stop date: 01/21/21 11:20:00 CDT glycopyrrol 2020-0 No Route: IV, Memoria ate (ANES) 01-21 Drug form: l 16:20: INJ, ONCE, Stop date: 01/21/21 11:20:00 CDT EPINEPHrine 2020-0 No Route: IV, Memoria (ANES) 01-21 Drug form: l 16:20: INJ, ONCE, Stop date: 01/21/21 11:20:00 CDT ePHEDrine 2020-0 No Route: IV, Me moria (ANES) 01-21 Drug form: l 16:09: INJ, ONCE, Stop date: 01/21/21 11:09:00 CDT phenylephri 2020-0 No Route: IV, Memoria ne (ANES) 01-21 Drug form: l 16:09: INJ, ONCE, Stop date: 01/21/21 11:09:00 CDT ePHEDrine 2020-0 No Route: IV, Me moria (ANES) 01-21 Drug form: l 16:09: INJ, ONCE, Stop date: 01/21/21 11:09:00 CDT phenylephri 2020-0 No Route: IV, Memoria ne (ANES) 01-21 Drug form: l 16:09: INJ, ONCE, Stop date: 01/21/21 11:09:00 CDT ePHEDrine 2020-0 No Route: IV, Me moria (ANES) 01-21 Drug form: l 16:09: INJ, ONCE, Stop date: 01/21/21 11:09:00 CDT phenylephri 2020-0 No Route: IV, Memoria ne (ANES) 01-21 Drug form: l 16:09: INJ, ONCE, Stop date: 01/21/21 11:09:00 CDT ePHEDrine 2020-0 No Route: IV, Me moria (ANES) 01-21 Drug form: l 16:09: INJ, ONCE, Stop date: 01/21/21 11:09:00 CDT phenylephri 2020-0 No Route: IV, Memoria ne (ANES) 01-21 Drug form: l 16:09: INJ, ONCE, Stop date: 01/21/21 11:09:00 CDT ePHEDrine 2020-0 No Route: IV, Me moria (ANES) 01-21 Drug form: l 16:09: INJ, ONCE, Stop date: 01/21/21 11:09:00 CDT phenylephri 2020-0 No Route: IV, Memoria ne (ANES) 01-21 Drug form: l 16:09: INJ, ONCE, Stop date: 01/21/21 11:09:00 CDT ePHEDrine 0 No Route: IV, Me moria (ANES) 01-21 Drug form: l 16:09: INJ, ONCE, Stop date: 01/21/21 11:09:00 CDT phenylephri 2020-0 No Route: IV, Memoria ne (ANES) 01-21 Drug form: l 16:09: INJ, ONCE, Stop date: 01/21/21 11:09:00 CDT lidocaine 2020-0 No Route: IV, Me moria (ANES) 01-21 Drug form: l 14:51: INJ, ONCE, Stop date: 01/21/21 9:51:00 CDT propofol 2020-0 No Route: IV, Mem oria (ANES) 01-21 Drug form: l 14:51: INJ, ONCE, Stop date: 01/21/21 9:51:00 CDT lidocaine 2020-0 No Route: IV, Me moria (ANES) 01-21 Drug form: l 14:51: INJ, ONCE, Stop date: 01/21/21 9:51:00 CDT propofol 2020-0 No Route: IV, Mem oria (ANES) 01-21 Drug form: l 14:51: INJ, ONCE, Stop date: 01/21/21 9:51:00 CDT lidocaine 2020-0 No Route: IV, Me moria (ANES) 01-21 Drug form: l 14:51: INJ, ONCE, Stop date: 01/21/21 9:51:00 CDT propofol 2020-0 No Route: IV, Mem oria (ANES) 01-21 Drug form: l 14:51: INJ, ONCE, Stop date: 01/21/21 9:51:00 CDT lidocaine 0 No Route: IV, Me moria (ANES) 01-21 Drug form: l 14:51: INJ, ONCE, Stop date: 01/21/21 9:51:00 CDT propofol 2020-0 No Route: IV, Mem oria (ANES) 01-21 Drug form: l 14:51: INJ, ONCE, Stop date: 01/21/21 9:51:00 CDT lidocaine 0 No Route: IV, Me moria (ANES) 01-21 Drug form: l 14:51: INJ, ONCE, Stop date: 01/21/21 9:51:00 CDT propofol 0 No Route: IV, Mem oria (ANES) 01-21 Drug form: l 14:51: INJ, ONCE, Stop date: 01/21/21 9:51:00 CDT lidocaine 0 No Route: IV, Me moria (ANES) 01-21 Drug form: l 14:51: INJ, ONCE, Stop date: 01/21/21 9:51:00 CDT propofol 0 No Route: IV, Mem oria (ANES) 01-21 Drug form: l 14:51: INJ, ONCE, Stop date: 01/21/21 9:51:00 CDT propofol 0 No Route: IV, Mem oria (ANES) 10 01-21 Drug form: l mg 14:20: INJ, Start date: 01/21/21 9:20:00 CDT, Stop date: 01/21/21 10:20:00 CDT propofol 0 No Route: IV, Mem oria (ANES) 10 01-21 Drug form: l mg 14:20: INJ, Start date: 01/21/21 9:20:00 CDT, Stop date: 01/21/21 10:20:00 CDT propofol 0 No Route: IV, Mem oria (ANES) 10 01-21 Drug form: l mg 14:20: INJ, date: 01/21/21 9:20:00 CDT, Stop date: 01/21/21 10:20:00 CDT propofol 2020-0 No Route: IV, Mem oria (ANES) 10 01-21 Drug form: l mg 14:20: INJ, date: 01/21/21 9:20:00 CDT, Stop date: 01/21/21 10:20:00 CDT propofol 2020-0 No Route: IV, Mem oria (ANES) 10 01-21 Drug form: l mg 14:20: INJ, date: 01/21/21 9:20:00 CDT, Stop date: 01/21/21 10:20:00 CDT propofol 2020-0 No Route: IV, Mem oria (ANES) 10 01-21 Drug form: l mg 14:20: INJ, date: 01/21/21 9:20:00 CDT, Stop date: 01/21/21 10:20:00 CDT Isolyte S 2020-0 No Route: IV, Me moria PH 7.4 8-03 Total l (ANES) 1000 14:17: Volume: Her braden mL 00 1,000, Start date: 01/21/21 9:17:00 CDT, Stop date: 01/21/21 10:17:00 CDT Isolyte S 2020-0 No Route: IV, Me moria PH 7.4 8-03 Total l (ANES) 1000 14:17: Volume: Her braden mL 00 1,000, Start date: 01/21/21 9:17:00 CDT, Stop date: 01/21/21 10:17:00 CDT Isolyte S 2020-0 No Route: IV, Me moria PH 7.4 8-03 Total l (ANES) 1000 14:17: Volume: Her braden mL 00 1,000, Start date: 01/21/21 9:17:00 CDT, Stop date: 01/21/21 10:17:00 CDT Isolyte S 0 No Route: IV, Me moria PH 7.4 8-03 Total l (ANES) 1000 14:17: Volume: Her braden mL 00 1,000, Start date: 01/21/21 9:17:00 CDT, Stop date: 01/21/21 10:17:00 CDT Isolyte S No Route: IV, Me moria PH 7.4 8-03 Total l (ANES) 1000 14:17: Volume: Her braden mL 00 1,000, Start date: 01/21/21 9:17:00 CDT, Stop date: 01/21/21 10:17:00 CDT Isolyte S No Route: IV, Me moria PH 7.4 8-03 Total l (ANES) 1000 14:17: Volume: Her braden mL 00 1,000, Start date: 01/21/21 9:17:00 CDT, Stop date: 01/21/21 10:17:00 CDT Hydralazine No Notes: Mendoza janice 01-21 (Same as: l 13:16: Apresoline ) Push over 5 minutes Labetalol No 10 mg, 2 Mendoza janice 8-03 mL, Route: l 13:16: IVP, Drug form: INJ, Q5Min, Dosing Weight 72, kg, PRN Elevated BP, Start date: 01/21/21 8:16:00 CDT, Duration: 5 doses or times, Stop date: 01/22/21 0:00:00 CDT, 0 Fentanyl No Notes: Memoria 01-21 (Same as: l 13:16: Sublimaze) Preservat montse free. Hydromorpho No Notes: Mendoza janice ne - Same as l 13:16: Dilaudid Flumazenil No Notes: Memor ia -03 (Same as: l 13:16: Romazicon) Naloxone No Notes: Memoria 8- Same as l 13:16: Narcan Albuterol No Notes: SEE Me moria 0.83 MG/ML 8-03 RT l Inhalant 13:16: DOCUMENTAT Her braden Solution 00 ION (Same as: Proventil) Ondansetron No Notes: Mendoza janice 8- (Same as: l 13:16: Zofran) MEDICATION WASTE Product Size: 4 mg Product Wasted: ___ mg Promethazin No Notes: Do M emoria e 01-21 not give l 13:16: IV push. Vin 00 (Same as: Phenergan) Simethicone No Notes: Mendoza janice 01-21 (Same as: l 13:16: Mylicon, [place] Phazyme, Genasyme) Hydralazine No Notes: Mendoza janice 01-21 (Same [...] 01-21 not give l 13:16: IV push. [place] 00 (Same as: Phenergan) Simethicone No Notes: Mendoza janice 8- (Same as: l 13:16: Mylicon, Vin 00 Phazyme, Genasyme) Hydralazine No Notes: Mendoza janice 8 (Same as: l 13:16: Apresoline ) Push over 5 minutes Labetalol No 10 mg, 2 Mendoza janice 8- mL, Route: l 13:16: IVP, Drug form: [...] as: Phenergan) Simethicone No Notes: Mendoza janice 8- (Same as: l 13:16: Mylicon, Vin 00 Phazyme, Genasyme) Hydralazine No Notes: Mendoza janice 8- (Same as: l 13:16: Apresoline ) Push over 5 minutes Labetalol No 10 mg, 2 Mendoza janice 8-03 mL, Route: l 13:16: IVP, Drug form: [...] janice 01-21 (Same as: l 13:16: Mylicon, Vin 00 Phazyme, Genasyme) Hydralazine No Notes: Mendoza janice 01-21 (Same as: l 13:16: Apresoline ) Push over 5 minutes Labetalol No 10 mg, 2 Mendoza janice 8-03 mL, Route: l 13:16: IVP, Drug form: [...] janice 01-21 (Same as: l 13:16: Mylicon, Phazyme, Genasyme) Hydralazine No Notes: Mendoza janice 01-21 (Same as: l 13:16: Apresoline ) Push over 5 minutes Labetalol No 10 mg, 2 Mendoza janice 8- mL, Route: l 13:16: IVP, Drug form: INJ, Q5Min, Dosing Weight 72, kg, PRN Elevated BP, Start date: 01/21/21 8:16:00 CDT, Duration: 5 doses or times, Stop date: 01/22/21 0:00:00 CDT, 0 Fentanyl No Notes: Memoria 8-03 (Same as: l 13:16: Sublimaze) Preservat montse [...] janice 01-21 (Same as: l 13:16: Mylicon, [place] 00 Phazyme, Genasyme) calcium No See Memoria acetate 667 8-03 Instructio l MG Oral 12:59: ns, 1 cap Nidia nn Capsule 00 PO with meals, 0 Refill(s) calcium No See Memoria acetate 667 8-03 Instructio l MG Oral 12:59: ns, 1 cap Nidia nn Capsule 00 PO with meals, 0 Refill(s) calcium No See Memoria acetate 667 8-03 Instructio l MG Oral 12:59: ns, 1 cap Nidia nn Capsule 00 PO with meals, 0 Refill(s) calcium No See Memoria acetate 667 8-03 Instructio l MG Oral 12:59: ns, 1 cap Nidia nn Capsule 00 PO with meals, 0 Refill(s) calcium No See Memoria acetate 667 8-03 Instructio l MG Oral 12:59: ns, 1 cap Nidia nn Capsule 00 PO with meals, 0 Refill(s) calcium No See Memoria acetate 667 8-03 Instructio l MG Oral 12:59: ns, 1 cap Nidia nn Capsule 00 PO with meals, 0 Refill(s) Calcium Yes 667mg Take 667 UT Acetate 667 7-16 mg by Health MG tablet 13:04: mouth 4 35 (four) times a day if needed. furosemide Yes 40mg Q.5D Take 40 mg U T (Lasix) 40 7-16 by mouth 2 [facility]a l[facility] MG tablet 13:04: (two) 35 times a day. cholecalcif Yes 5000U QD Take 5,000 UT mansi (D3-5) 7-16 Units by Heal th 5,000 Units 13:03: mouth 1 tablet 11 (one) time each day. folic Yes 1{tbl} QD Take 1 UT acid-vitami 7-16 tablet by Hea lth n B 13:03: mouth 1 complex-vit 11 (one) time nava each day. C-selenium- zinc (Dialyvite) 3 MG tablet linaGLIPtin Yes 5mg QD Take 5 mg U T (TRADJENTA 7-16 by mouth 1 Hea lth PO) 13:03: (one) time 11 each day. Xifaxan 550 Yes 1{tbl} QD Take 1 UT MG tablet 7-07 tablet by Healt h 00:00: mouth 1 00 (one) time each day. rifaximin Yes 550 mg = 1 Me moria 550 MG Oral 7-06 tab, PO, l Tablet 18:46: TID, # 42 Jake n [XIFAXAN] 00 tab, 2 Refill(s), Pharmacy: [facility], 154.94, cm, 12/24/20 10:43:00 CDT, Height, 71.818, kg, 12/24/20 10:43:00 CDT, Weight rifaximin Yes 550 mg = 1 Me moria 550 MG Oral 7-06 tab, PO, l Tablet 18:46: TID, # 42 Jake n [XIFAXAN] 00 tab, 2 Refill(s), Pharmacy: [facility], 154.94, cm, 12/24/20 10:43:00 CDT, Height, 71.818, kg, 12/24/20 10:43:00 CDT, Weight rifaximin 2021-0 Yes 550 mg = 1 Me moria 550 MG Oral 7-06 tab, PO, l Tablet 18:46: TID, # 42 Jake n [XIFAXAN] 00 tab, 2 Refill(s), Pharmacy: [facility], 154.94, cm, 12/24/20 10:43:00 CDT, Height, 71.818, kg, 12/24/20 10:43:00 CDT, Weight rifaximin 2021-0 Yes 550 mg = 1 Me moria 550 MG Oral 7-06 tab, PO, l Tablet 18:46: TID, # 42 Jake n [XIFAXAN] 00 tab, 2 Refill(s), Pharmacy: [facility], 154.94, cm, 12/24/20 10:43:00 CDT, Height, 71.818, kg, 12/24/20 10:43:00 CDT, Weight rifaximin 2021-0 Yes 550 mg = 1 Me moria 550 MG Oral 7-06 tab, PO, l Tablet 18:46: TID, # 42 Jake n [XIFAXAN] 00 tab, 2 Refill(s), Pharmacy: [facility], 154.94, cm, 12/24/20 10:43:00 CDT, Height, 71.818, kg, 12/24/20 10:43:00 CDT, Weight rifaximin 2021-0 Yes 550 mg = 1 Me moria 550 MG Oral 7-06 tab, PO, l Tablet 18:46: TID, # 42 Jake n [XIFAXAN] 00 tab, 2 Refill(s), Pharmacy: [facility], 154.94, cm, 12/24/20 10:43:00 CDT, Height, 71.818, kg, 12/24/20 10:43:00 CDT, Weight {2 (480 ML 2020-0 Yes See Memoria Magnesium 7-06 Instructio l Sulfate 18:12: ns, take Jake n 0.0277 00 as MEQ/ML / directed, potassium give sulfate clenpiq if 0.0374 not MEQ/ML / covered by sodium insurance, sulfate # 1 ea, 0 0.257 Refill(s), MEQ/ML Oral Pharmacy: Solution) } [facility] [Suprep 808, Bowel Prep 154.94, Kit] cm, 12/24/20 10:43:00 CDT, Height, 71.818, kg, 12/24/20 10:43:00 CDT, Weight {2 (480 ML 2020-0 Yes See Memoria Magnesium 7-06 Instructio l Sulfate 18:12: ns, take Jake n 0.0277 00 as MEQ/ML / directed, potassium give sulfate clenpiq if 0.0374 not MEQ/ML / covered by sodium insurance, sulfate # 1 ea, 0 0.257 Refill(s), MEQ/ML Oral Pharmacy: Solution) } [facility] [Suprep 808, Bowel Prep 154.94, Kit] cm, 12/24/20 10:43:00 CDT, Height, 71.818, kg, 12/24/20 10:43:00 CDT, Weight {2 (480 ML 0 Yes See Memoria Magnesium 7-06 Instructio l Sulfate 18:12: ns, take Jake n 0.0277 00 as MEQ/ML / directed, potassium give sulfate clenpiq if 0.0374 not MEQ/ML / covered by sodium insurance, sulfate # 1 ea, 0 0.257 Refill(s), MEQ/ML Oral Pharmacy: Solution) } [facility] [Suprep 808, Bowel Prep 154.94, Kit] cm, 12/24/20 10:43:00 CDT, Height, 71.818, kg, 12/24/20 10:43:00 CDT, Weight {2 (480 ML 2020-0 Yes See Memoria Magnesium 7-06 Instructio l Sulfate 18:12: ns, take Jake n 0.0277 00 as MEQ/ML / directed, potassium give sulfate clenpiq if 0.0374 not MEQ/ML / covered by sodium insurance, sulfate # 1 ea, 0 0.257 Refill(s), MEQ/ML Oral Pharmacy: Solution) } [facility] [Suprep 808, Bowel Prep 154.94, Kit] cm, 12/24/20 10:43:00 CDT, Height, 71.818, kg, 12/24/20 10:43:00 CDT, Weight {2 (480 ML 2020-0 Yes See Memoria Magnesium 7-06 Instructio l Sulfate 18:12: ns, take Jake n 0.0277 00 as MEQ/ML / directed, potassium give sulfate clenpiq if 0.0374 not MEQ/ML / covered by sodium insurance, sulfate # 1 ea, 0 0.257 Refill(s), MEQ/ML Oral Pharmacy: Solution) } [facility] [Suprep 808, Bowel Prep 154.94, Kit] cm, 12/24/20 10:43:00 CDT, Height, 71.818, kg, 12/24/20 10:43:00 CDT, Weight {2 (480 ML 2020-0 Yes See Memoria Magnesium 7-06 Instructio l Sulfate 18:12: ns, take Jake n 0.0277 00 as MEQ/ML / directed, potassium give sulfate clenpiq if 0.0374 not MEQ/ML / covered by sodium insurance, sulfate # 1 ea, 0 0.257 Refill(s), MEQ/ML Oral Pharmacy: Solution) } [facility] [Suprep 808, Bowel Prep 154.94, Kit] cm, 12/24/20 10:43:00 CDT, Height, 71.818, kg, 12/24/20 10:43:00 CDT, Weight Citric Acid 2020-0 Yes 160 mL, Mem oria 75 MG/ML / 7-06 PO, PRE l Magnesium 18:11: OP, # 1 Nidia nn Oxide 21.9 00 ea, 0 MG/ML / Refill(s), picosulfate Pharmacy: sodium [facility] 0.0625 Pharmacy MG/ML Oral 808, Solution 154.94, [Clenpiq] cm, 12/24/20 10:43:00 CDT, Height, 71.818, kg, 12/24/20 10:43:00 CDT, Weight Citric Acid 2020-0 Yes 160 mL, Mem oria 75 MG/ML / 7-06 PO, PRE l Magnesium 18:11: OP, # 1 Nidia nn Oxide 21.9 00 ea, 0 MG/ML / Refill(s), picosulfate Pharmacy: sodium [facility] 0.0625 Pharmacy MG/ML Oral 808, Solution 154.94, [Clenpiq] cm, 12/24/20 10:43:00 CDT, Height, 71.818, kg, 12/24/20 10:43:00 CDT, Weight Citric Acid 2020-0 Yes 160 mL, Mem oria 75 MG/ML / 7-06 PO, PRE l Magnesium 18:11: OP, # 1 Nidia nn Oxide 21.9 00 ea, 0 MG/ML / Refill(s), picosulfate Pharmacy: sodium [facility] 0.0625 Pharmacy MG/ML Oral 808, Solution 154.94, [Clenpiq] cm, 12/24/20 10:43:00 CDT, Height, 71.818, kg, 12/24/20 10:43:00 CDT, Weight Citric Acid 2020-0 Yes 160 mL, Mem oria 75 MG/ML / 7-06 PO, PRE l Magnesium 18:11: OP, # 1 Nidia nn Oxide 21.9 00 ea, 0 MG/ML / Refill(s), picosulfate Pharmacy: sodium [facility] 0.0625 Pharmacy MG/ML Oral 808, Solution 154.94, [Clenpiq] cm, 12/24/20 10:43:00 CDT, Height, 71.818, kg, 12/24/20 10:43:00 CDT, Weight Citric Acid 2020-0 Yes 160 mL, Mem oria 75 MG/ML / 7-06 PO, PRE l Magnesium 18:11: OP, # 1 Nidia nn Oxide 21.9 00 ea, 0 MG/ML / Refill(s), picosulfate Pharmacy: sodium [facility] 0.0625 Pharmacy MG/ML Oral 808, Solution 154.94, [Clenpiq] cm, 12/24/20 10:43:00 CDT, Height, 71.818, kg, 12/24/20 10:43:00 CDT, Weight Citric Acid 1-0 Yes 160 mL, Mem oria 75 MG/ML / 7-06 PO, PRE l Magnesium 18:11: OP, # 1 Nidia nn Oxide 21.9 00 ea, 0 MG/ML / Refill(s), picosulfate Pharmacy: [facility] 0.0625 Pharmacy MG/ML Oral 808, Solution 154.94, [Clenpiq] cm, 12/24/20 10:43:00 CDT, Height, 71.818, kg, 12/24/20 10:43:00 CDT, Weight cyproheptad 1-0 Yes 4 mg = 1 Me moria ine 4 mg 7-06 tab, PO, l oral tablet 18:10: TID, X 30 H ermann 00 day, # 90 tab, 3 Refill(s), Pharmacy: [facility], 154.94, cm, 12/24/20 10:43:00 CDT, Height, 71.818, kg, 12/24/20 10:43:00 CDT, Weight cyproheptad 1-0 Yes 4 mg = 1 Me moria ine 4 mg 7-06 tab, PO, l oral tablet 18:10: TID, X 30 H ermann 00 day, # 90 tab, 3 Refill(s), Pharmacy: [facility], 154.94, cm, 12/24/20 10:43:00 CDT, Height, 71.818, kg, 12/24/20 10:43:00 CDT, Weight cyproheptad 1-0 Yes 4 mg = 1 Me moria ine 4 mg 7-06 tab, PO, l oral tablet 18:10: TID, X 30 H ermann 00 day, # 90 tab, 3 Refill(s), Pharmacy: [facility], 154.94, cm, 12/24/20 10:43:00 CDT, Height, 71.818, kg, 12/24/20 10:43:00 CDT, Weight cyproheptad 1-0 Yes 4 mg = 1 Me moria ine 4 mg 7-06 tab, PO, l oral tablet 18:10: TID, X 30 H ermann 00 day, # 90 tab, 3 Refill(s), Pharmacy: [facility], 154.94, cm, 12/24/20 10:43:00 CDT, Height, 71.818, kg, 12/24/20 10:43:00 CDT, Weight cyproheptad 0 Yes 4 mg = 1 Me moria ine 4 mg 7-06 tab, PO, l oral tablet 18:10: TID, X 30 H erm day, # 90 tab, 3 Refill(s), Pharmacy: [facility], 154.94, cm, 12/24/20 10:43:00 CDT, Height, 71.818, kg, 12/24/20 10:43:00 CDT, Weight cyproheptad 0 Yes 4 mg = 1 Me moria ine 4 mg 7-06 tab, PO, l oral tablet 18:10: TID, X 30 H erm day, # 90 tab, 3 Refill(s), Pharmacy: [facility], 154.94, cm, 12/24/20 10:43:00 CDT, Height, 71.818, kg, 12/24/20 10:43:00 CDT, Weight Zinc 0 Yes 140 mg, Memoria 7-06 PO, Daily, l 15:54: 0 [place] 00 Refill(s) Elderberry 0 Yes 0 Memoria preparation 7-06 Refill(s) l 15:54: Vin 00 Zinc 2020-0 Yes 140 mg, Memoria 7-06 PO, Daily, l 15:54: 0 [place] 00 Refill(s) Elderberry 0 Yes 0 Memoria preparation 7-06 Refill(s) l 15:54: Vin 00 Zinc 2020-0 Yes 140 mg, Memoria 7-06 PO, Daily, l 15:54: 0 Vin 00 Refill(s) Elderberry 0 Yes 0 Memoria preparation 7-06 Refill(s) l 15:54: Vin 00 Zinc 2020-0 Yes 140 mg, Memoria 7-06 PO, Daily, l 15:54: 0 Vin 00 Refill(s) Elderberry 0 Yes 0 Memoria preparation 7-06 Refill(s) l 15:54: [place] 00 Zinc 2020-0 Yes 140 mg, Memoria 7-06 PO, Daily, l 15:54: 0 [place] 00 Refill(s) Elderberry 0 Yes 0 Memoria preparation 7-06 Refill(s) l 15:54: Zinc 0 Yes 140 mg, Memoria 7-06 PO, Daily, l 15:54: 0 Refill(s) Elderberry Yes 0 Memoria preparation 7-06 Refill(s) l 15:54: Buspar Yes PO, BID, 0 Memor ia 7-06 Refill(s) l 15:53: Dialyvite Yes 0 Memoria 5000 7-06 Refill(s) l 15:53: Buspar Yes PO, BID, 0 Memor ia 7-06 Refill(s) l 15:53: Dialyvite Yes 0 Memoria 5000 7-06 Refill(s) l 15:53: Buspar Yes PO, BID, 0 Memor ia 7-06 Refill(s) l 15:53: Dialyvite Yes 0 Memoria 5000 7-06 Refill(s) l 15:53: Buspar 0 Yes PO, BID, 0 Memor ia 7-06 Refill(s) l 15:53: Dialyvite Yes 0 Memoria 5000 7-06 Refill(s) l 15:53: Buspar Yes PO, BID, 0 Memor ia 7-06 Refill(s) l 15:53: Dialyvite Yes 0 Memoria 5000 7-06 Refill(s) l 15:53: Buspar 0 Yes PO, BID, 0 Memor ia 7-06 Refill(s) l 15:53: Dialyvite Yes 0 Memoria 5000 7-06 Refill(s) l 15:53: traZODone Yes 200mg QD Take 200 UT (Desyrel) 6-19 mg by Health 100 MG 00:00: mouth at tablet 00 night if needed. NEEDED sertraline Yes 50mg Take 50 mg U T (Zoloft) 50 6-19 by mouth 1 He alth MG tablet 00:00: (one) time 00 each day in the morning. gabapentin 0 Yes 100mg QD Take 100 UT (Neurontin) 6-19 mg by [facility] 100 MG 00:00: mouth 1 capsule 00 (one) time each day. divalproex 2020-0 Yes 500mg Q.5D Take 500 UT (Depakote 6-19 mg by Health ER) 500 MG 00:00: mouth 2 24 hr 00 (two) tablet times a day. busPIRone 0 Yes 7.5mg Q.5D Take 7.5 UT (Buspar) 6-19 mg by [facility] 7.5 MG 00:00: mouth 2 tablet 00 (two) times a day. buPROPion Yes 300mg Take 300 UT XL 6-19 mg by [facility] (Wellbutrin 00:00: mouth 1 XL) 300 MG 00 (one) time 24 hr each day tablet in the morning. metoprolol Yes 1{tbl} QD Take 1 UT [facility] [facility] 1 (Toprol-XL) 00 (one) time 50 MG 24 hr each day. tablet ascorbic Yes 500mg Q.[id number] Take 500 UT acid 5-15 [id number] mg by [facility] (Vitamin C) 00:00: 3D mouth 3 500 MG 00 (three) tablet times a day. sucralfate Yes 1{tbl} QD Take 1 UT (Carafate) 5-10 tablet by Heal th 1 g tablet 00:00: mouth 1 00 (one) time each day. doxazosin 4 2020- No 4mg Take 4 mg [facility] mg tablet 06-27 by mouth 2 ity of 10:52: 00:00 (two) [place] 22 :00 times Medical daily. Branch doxazosin 4 Yes 4mg Take 1 Univ ers mg tablet 06-27 tablet by ity o f 00:00: mouth at [place] 00 bedtime. Medical Branch glipiZIDE 5 2019-06- No [id number] 5mg Take 1 [facility] mg tablet 07-0106 tablet by ity of 00:00: 00:00 mouth 2 [place] 00 :00 (two) Medical times Branch daily before breakfast and dinner. traZODone Yes 150mg Take 150 Uni vers 150 mg 8-13 mg by ity of tablet 00:00: mouth at [place] 00 bedtime. Medical Branch erythromyci 2020- No [id number] .5[in_u Place 0.5 Univers n 5 mg/gram 706-27 s] Inches in it y of (0.5 %) 00:00: 00:00 left eye 3 Baljinder as ophthalmic 00 :00 (three) Medica l ointment times Branch daily. Continue until you follow up with eye doctor. diphenhydrA 2020- No 50mg Take 1 Uni vers MINE 50 mg 8-06-27 tablet by ity of tablet 00:00: 00:00 mouth [place] 00 :00 every 6 Medical (six) Branch hours as needed for Allergies. albuterol Yes 2{puff} Inhale 2 U nivers 90 5-06 Puffs ity of mcg/actuati 00:00: every 4 Baljinder as on inhaler 00 (four) Medical hours as Branch needed for Wheezing or Shortness of Breath. artificial Yes 1[drp] Place 1 Un lori tears,hypro 2-08 Drop in ity o f mellose, 00:00: left eye 4 Baljinder as (ISOPTO 00 (four) Medical TEARS) 0.5 times Branch % daily as ophthalmic needed for drops Dry eyes. divalproex Yes depression 500mg QD Take [address] [facility] (DEPAKOTE) 7-20 associated mg by Kenyatta kes - 500 MG EC 15:20: with [...] l 59 Center hydrALAZINE 2017-0 Yes 100mg Q.[id number] Take [address] [facility] (APRESOLINE 7-20 [id number] mg by L ukes - ) 100 MG 15:20: 3D mouth 3 Medica l tablet 59 (three) Center times daily. magnesium 2017- Yes 400mg QD Take [address] [facility] oxide 7-20 mg by [facility] (MAG-OX) 15:20: mouth Medical 400 mg 59 daily. Center tablet metoclopram 2017- Yes 10mg Q.[id number] Take [address] [facility] gadiel HCl 7-20 [id number] by mouth 3 [facility] - (REGLAN) 10 [...] 3 Center mg/mL (three) injection months. divalproex 2017 Yes depression 500mg QD Take [address] [facility] (DEPAKOTE) 7-20 associated mg by Kenyatta kes - 500 MG EC 15:20: with [...] l 59 Center hydrALAZINE 2017- Yes 100mg Q.[id number] Take [address] [facility] (APRESOLINE 7-20 [id number] mg by L ukes - ) 100 MG 15:20: 3D mouth 3 Medica l tablet 59 (three) Center times daily. magnesium 2017 Yes 400mg QD Take [address] [facility] oxide 7-20 mg by [facility] - (MAG-OX) 15:20: mouth Medical 400 mg 59 daily. Center tablet metoclopram 2017- Yes 10mg Q.[id number] Take [address] [facility] gadiel HCl 7-20 [id number] by mouth 3 [facility] - (REGLAN) 10 15:20: 3D (three) Med ical MG tablet 59 times Center daily. meclizine 2017 Yes 12.5mg Take 12.[address] [facility] (ANTIVERT) 7-20 mg by [facility] - 25 MG 15:20: mouth 3 Medical tablet 59 (three) Center times daily as needed. sertraline Yes anxiety QD Take by [facility] (ZOLOFT) 7-20 with mouth [facility] - 100 MG 15:20: depression daily. Med ical tablet 59 Center medroxyPROG [address] [facility] ESTERone 7-20 intramuscu [facility] - (DEPO-PROVE 15:20: larly Medic al RA) 150 59 every 3 Center mg/mL (three) injection months. insulin 2017-0 Yes 5U QD Inject [address] [facility] glargine 7-20 Units [facility] - (LANTUS) 00:00: subcutaneo Med ical 100 unit/mL 00 usly every Ce nter injection morning Use as directed . insulin 2017-0 Yes 5U QD Inject [address] [facility] [address] glargine 7-20 Units [facility] - (LANTUS) 00:00: subcutaneo Med ical 100 unit/mL 00 usly every Ce nter injection morning Use as directed . Furosemide 2017- Yes 40 mg = 1 Me moria 40 MG Oral 2-09 tab, PO, l Tablet 15:07: Daily, # [place] 00 30 tab, 0 Refill(s), Pharmacy: [place] [address] Furosemide 2017- Yes 40 mg = 1 Me moria 40 MG Oral 2-09 tab, PO, l Tablet 15:07: Daily, # Vin 00 30 tab, 0 Refill(s), Pharmacy: [place] [address] Furosemide Yes 40 mg = 1 Me moria 40 MG Oral 2-09 tab, PO, l Tablet 15:07: Daily, # Vin 00 30 tab, 0 Refill(s), Pharmacy: [place] [address] Furosemide Yes 40 mg = 1 Me moria 40 MG Oral 2-09 tab, PO, l Tablet 15:07: Daily, # Vin 00 30 tab, 0 Refill(s), Pharmacy: [place] [address] Furosemide Yes 40 mg = 1 Me moria 40 MG Oral 2-09 tab, PO, l Tablet 15:07: Daily, # Vin 00 30 tab, 0 Refill(s), Pharmacy: [place] [address] Furosemide Yes 40 mg = 1 Me moria 40 MG Oral 2-09 tab, PO, l Tablet 15:07: Daily, # [place] 00 30 tab, 0 Refill(s), Pharmacy: [place] [address] Bumex 2017-0 No 0.5 mg, Memoria 07-30 Route: PO, l 15:00: Drug form: [place] 00 TAB, Daily, Dosing Weight 92.273, kg, Start date: 07/30/16 9:00:00 [employer]ONT [employer] ASSISTANT, Duration: 30 day, Stop date: 08/28/16 9:00:00 FRONT DESK ASSISTANT Bumex 2017-0 No 0.5 mg, Memoria 2 Route: PO, l 15:00: Drug form: Vin 00 TAB, Daily, Dosing Weight 92.273, kg, Start date: 07/30/16 9:00:00 FRONT DESK ASSISTANT, Duration: 30 day, Stop date: 08/28/16 9:00:00 FRONT DESK ASSISTANT Bumex 2017-0 No 0.5 mg, Memoria 07-30 Route: PO, l 15:00: Drug form: Vin 00 TAB, Daily, Dosing Weight 92.273, kg, Start date: 07/30/16 9:00:00 FRONT DESK ASSISTANT, Duration: 30 day, Stop date: 08/28/16 9:00:00 FRONT DESK ASSISTANT Bumex 2017-0 No 0.5 mg, Memoria 2-09 Route: PO, l 15:00: Drug form: [place] 00 TAB, Daily, Dosing Weight 92.273, kg, Start date: 07/30/16 9:00:00 FRONT DESK ASSISTANT, Duration: 30 day, Stop date: 08/28/16 9:00:00 FRONT DESK ASSISTANT Bumex 2017-0 No 0.5 mg, Memoria 2-09 Route: PO, l 15:00: Drug form: [place] 00 TAB, Daily, Dosing Weight 92.273, kg, Start date: 07/30/16 9:00:00 FRONT DESK ASSISTANT, Duration: 30 day, Stop date: 08/28/16 9:00:00 FRONT DESK ASSISTANT Bumex 2017-0 No 0.5 mg, Memoria 2-09 Route: PO, l 15:00: Drug form: Vin 00 TAB, Daily, Dosing Weight 92.273, kg, Start date: 07/30/16 9:00:00 FRONT DESK ASSISTANT, Duration: 30 day, Stop date: 08/28/16 9:00:00 FRONT DESK ASSISTANT Lasix 20170 No Notes: Memoria 2-08 (Same as: l 20:05: Lasix) [place] 00 May cause GI upset. Give with food or milk. Lasix 0 No Notes: Memoria 2-08 (Same as: l 20:05: Lasix) [place] 00 May cause GI upset. Give with food or milk. Lasix 0 No Notes: Memoria 2-08 (Same as: l 20:05: Lasix) Vin 00 May cause GI upset. Give with food or milk. Lasix 0 No Notes: Memoria 2-08 (Same as: l 20:05: Lasix) [place] 00 May cause GI upset. Give with food or milk. Lasix 2017-0 No Notes: Memoria 2-08 (Same as: l 20:05: Lasix) [place] 00 May cause GI upset. Give with food or milk. Lasix 0 No Notes: Memoria 2-08 (Same as: l 20:05: Lasix) Vin 00 May cause GI upset. Give with food or milk. Hydralazine 2017-0 No Notes: Mendoza janice 2-08 (Same as: l 06:05: Apresoline [place] 00 ) Push over 5 minutes Hydralazine 2016-0 No Notes: Mendoza janice 2-08 (Same as: l 06:05: Apresoline Vin 00 ) Push over 5 minutes Hydralazine 2016-0 No Notes: Mendoza janice 2-08 (Same as: l 06:05: Apresoline [place] 00 ) Push over 5 minutes Hydralazine 2016-0 No Notes: Mendoza janice 2-08 (Same as: l 06:05: Apresoline Vin 00 ) Push over 5 minutes Hydralazine 2016-0 No Notes: Mendoza janice 2-08 (Same as: l 06:05: Apresoline [place] 00 ) Push over 5 minutes Hydralazine 2016-0 No Notes: Mendoza janice 2-08 (Same as: l 06:05: Apresoline Vin 00 ) Push over 5 minutes sodium 2017-0 No 1,000 mL, Memori a chloride 2-05 Rate: 125 l 0.9% 1000 18:26: ml/hr, Jake n ml INJ 00 Infuse 1,000 mL over: 8 hr, Route: IV, Dosing Weight 92.273 kg, Total Volume: 1,000, Start date: 07/26/16 12:26:00 FRONT DESK ASSISTANT, Duration: 30 day, Stop date: 08/25/16 12:25:00 FRONT DESK ASSISTANT sodium 2017-0 No 1,000 mL, Memori a chloride 2-05 Rate: 125 l 0.9% 1000 18:26: ml/hr, Jake n ml INJ 00 Infuse 1,000 mL over: 8 hr, Route: IV, Dosing Weight 92.273 kg, Total Volume: 1,000, Start date: 07/26/16 12:26:00 FRONT DESK ASSISTANT, Duration: 30 day, Stop date: 08/25/16 12:25:00 [employer] DESK ASSISTANT sodium 2017-0 No 1,000 mL, Memori a chloride 2-05 Rate: 125 l 0.9% 1000 18:26: ml/hr, Jake n ml INJ 00 Infuse 1,000 mL over: 8 hr, Route: IV, Dosing Weight 92.273 kg, Total Volume: 1,000, Start date: 07/26/16 12:26:00 FRONT DESK ASSISTANT, Duration: 30 day, Stop date: 08/25/16 12:25:00 [employer] DESK ASSISTANT sodium 2017-0 No 1,000 mL, Memori a chloride 2-05 Rate: 125 l 0.9% 1000 18:26: ml/hr, Jake n ml INJ 00 Infuse 1,000 mL over: 8 hr, Route: IV, Dosing Weight 92.273 kg, Total Volume: 1,000, Start date: 07/26/16 12:26:00 FR[employer] DESK ASSISTANT, Duration: 30 day, Stop date: 08/25/16 12:25:00 [employer] DESK ASSISTANT sodium 2017-0 No 1,000 mL, Memori a chloride 2-05 Rate: 125 l 0.9% 1000 18:26: ml/hr, Jake n ml INJ 00 Infuse 1,000 mL over: 8 hr, Route: IV, Dosing Weight 92.273 kg, Total Volume: 1,000, Start date: 07/26/16 12:26:00 FR[employer] DESK ASSISTANT, Duration: 30 day, Stop date: 08/25/16 12:25:00 [employer] DESK ASSISTANT sodium 2017-0 No 1,000 mL, Memori a chloride 2-05 Rate: 125 l 0.9% 1000 18:26: ml/hr, Jake n ml INJ 00 Infuse 1,000 mL over: 8 hr, Route: IV, Dosing Weight 92.273 kg, Total Volume: 1,000, Start date: 07/26/16 12:26:00 [employer] DESK ASSISTANT, Duration: 30 day, Stop date: 08/25/16 12:25:00 [employer] DESK ASSISTANT Sodium 2017-0 No 500 mL, Memoria Chloride 2-05 500 ml/hr, l 0.154 13:30: Infuse [place] MEQ/ML 00 Over: 1 Injectable hr, Route: Solution IV, 500, Drug form: INJ, ONCE, Priority: STAT, Dosing Weight 92.273 kg, Start date: 07/26/16 7:30:00 [employer] ASSISTANT, Duration: 1 doses or times, Stop date: 07/26/16 7:30:00 [employer] ASSISTANT Sodium 2017-0 No 500 mL, Memoria Chloride 2-05 500 ml/hr, l 0.154 13:30: Infuse [place] MEQ/ML 00 Over: 1 Injectable hr, Route: Solution IV, 500, Drug form: INJ, ONCE, Priority: STAT, Dosing Weight 92.273 kg, Start date: 07/26/16 7:30:00 [employer]K ASSISTANT, Duration: 1 doses or times, Stop date: 07/26/16 7:30:00 FR[employer] DESK ASSISTANT Sodium 2017-0 No 500 mL, Memoria Chloride 2-05 500 ml/hr, l 0.154 13:30: Infuse [place] MEQ/ML 00 Over: 1 Injectable hr, Route: Solution IV, 500, Drug form: INJ, ONCE, Priority: STAT, Dosing Weight 92.273 kg, Start date: 07/26/16 7:30:00 FRONT DESK ASSISTANT, Duration: 1 doses or times, Stop date: 07/26/16 7:30:00 FRONT DESK ASSISTANT Sodium 2017-0 No 500 mL, Memoria Chloride 2-05 500 ml/hr, l 0.154 13:30: Infuse [place] MEQ/ML 00 Over: 1 Injectable hr, Route: Solution IV, 500, Drug form: INJ, ONCE, Priority: STAT, Dosing Weight 92.273 kg, Start date: 07/26/16 7:30:00 FRONT DESK ASSISTANT, Duration: 1 doses or times, Stop date: 07/26/16 7:30:00 FRONT DESK ASSISTANT Sodium 2017-0 No 500 mL, Memoria Chloride 2-05 500 ml/hr, l 0.154 13:30: Infuse [place] MEQ/ML 00 Over: 1 Injectable hr, Route: Solution IV, 500, Drug form: INJ, ONCE, Priority: STAT, Dosing Weight 92.273 kg, Start date: 07/26/16 7:30:00 FRONT DESK ASSISTANT, Duration: 1 doses or times, Stop date: 07/26/16 7:30:00 FRONT DESK ASSISTANT Sodium 2017-0 No 500 mL, Memoria Chloride 2-05 500 ml/hr, l 0.154 13:30: Infuse [place] MEQ/ML 00 Over: 1 Injectable hr, Route: Solution IV, 500, Drug form: INJ, ONCE, Priority: STAT, Dosing Weight 92.273 kg, Start date: 07/26/16 7:30:00 FRONT DESK ASSISTANT, Duration: 1 doses or times, Stop date: 07/26/16 7:30:00 FRONT DESK ASSISTANT Insulin 2017-0 No 60 Memoria regular 2-04 units) l 08:39: WASTE: F/P [place] 00 - Black; E - Municipal Trash Bin Stable for 28 days at room temperatur e Expires in days from ____Date Insulin 2017-0 No 60 Memoria regular 2-04 units) l 08:39: WASTE: F/P [place] 00 - Black; E - [facility] Trash Bin Stable for 28 days at room temperatur e Expires in days from ____Date Insulin 2017-0 No 60 Memoria regular 2-04 units) l 08:39: WASTE: F/P Vin 00 - Black; E - Municipal Trash Bin Stable for 28 days at room temperatur e Expires in days from ____Date Insulin 2017-0 No 60 Memoria regular 2-04 units) l 08:39: WASTE: F/P Vin 00 - Black; E - Municipal Trash Bin Stable for 28 days at room temperatur e Expires in days from ____Date Insulin 2017-0 No 60 Memoria regular 2-04 units) l 08:39: WASTE: F/P Vin 00 - Black; E - [facility] Trash Bin Stable for 28 days at room temperatur e Expires in days from ____Date Insulin 2017-0 No 60 Memoria regular 2-04 units) l 08:39: WASTE: F/P [place] 00 - Black; E - [facility] Trash Bin Stable for 28 days at room temperatur e Expires in days from ____Date Insulin, 2017-0 No Notes: Memoria Aspart, 2-04 Roll in l Human 07:31: palms of [place] 00 hands gently; Do not shake vigorously . (Same as: NovoLOG) "single patient use only" WASTE: F/P - Black; E - [facility] Trash Bin Stable for 28 days at room temperatur e. Expires in days from ____Date Insulin, 2017-0 No Notes: Memoria Aspart, 2-04 Roll in l Human 07:31: palms of [place] 00 hands gently; Do not shake vigorously . (Same as: NovoLOG) "single patient use only" WASTE: F/P - Black; E - Municipal Trash Bin Stable for 28 days at room temperatur e. Expires in days from ____Date Insulin, 2016- No Notes: Memoria Aspart, 2-04 Roll in l Human 07:31: palms of [place] 00 hands gently; Do not shake vigorously [...] Roll in l Human 07:31: palms of [place] 00 hands gently; Do not shake vigorously . (Same as: NovoLOG) "single patient use only" WASTE: F/P - Black; E - Municipal Trash Bin Stable for 28 days at room temperatur e. Expires in days from ____Date Insulin, No Notes: Memoria Aspart, 2-04 Roll in l Human 07:31: palms of [place] 00 hands gently; Do not shake vigorously [...] Roll in l Human 05:42: palms of [place] 00 hands gently; Do not shake vigorously [...] Roll in l Human 03:28: palms of [place] 00 hands gently; Do not shake vigorously [...] Roll in l Human 03:28: palms of [place] 00 hands gently; Do not shake vigorously [...] Roll in l Human 03:28: palms of [place] 00 hands gently; Do not shake vigorously . (Same as: NovoLOG) "single patient use only" WASTE: F/P - Black; E - Municipal Trash Bin Stable for 28 days at room temperatur e. Expires in days from ____Date atorvastati No Notes: Mendoza janice n 2-04 (Same as: l 03:00: Lipitor) divalproex No Notes: Memor ia sodium 2-04 (Same as: l 03:00: Depakote [place] 00 ER) Once daily dosing; indicated for migraines. Divalproe x sodium extended-r elease tab. Do not chew or crush. "Do Not Crush" atorvastati No Notes: Mendoza janice n 2-04 (Same as: l 03:00: Lipitor) divalproex No Notes: Memor ia sodium 2-04 (Same as: l 03:00: Depakote [place] 00 ER) Once daily dosing; indicated for migraines. Divalproe x sodium extended-r elease tab. Do not chew or crush. "Do Not Crush" atorvastati No Notes: Mendoza janice n 2-04 (Same as: l 03:00: Lipitor) divalproex No Notes: Memor ia sodium 2-04 (Same as: l 03:00: Depakote [place] 00 ER) Once daily dosing; indicated for migraines. Divalproe x sodium extended-r elease tab. Do not chew or crush. "Do Not Crush" atorvastati No Notes: Mendoza janice n 2-04 (Same as: l 03:00: Lipitor) divalproex No Notes: Memor ia sodium 2-04 (Same as: l 03:00: Depakote [place] 00 ER) Once daily dosing; indicated for migraines. Divalproe x sodium extended-r elease tab. Do not chew or crush. "Do Not Crush" atorvastati No Notes: Mendoza janice n 2-04 (Same as: l 03:00: Lipitor) divalproex No Notes: Memor ia sodium 2-04 (Same as: l 03:00: Depakote [place] 00 ER) Once daily dosing; indicated for migraines. Divalproe x sodium extended-r elease tab. Do not chew or crush. "Do Not Crush" atorvastati No Notes: Mendoza janice n 2-04 (Same as: l 03:00: Lipitor) divalproex No Notes: Memor ia sodium 2-04 (Same as: l 03:00: Depakote [place] 00 ER) Once daily dosing; indicated for migraines. Divalproe x sodium extended-r elease tab. Do not chew or crush. "Do Not Crush" Lasix No Notes: Memoria 2- (Same as: l 22:00: Lasix) MEDICATION WASTE Product Size: 40 mg Product Wasted: ___ mg Lasix No Notes: Memoria 2 (Same as: l 22:00: Lasix) MEDICATION WASTE Product Size: 40 mg Product Wasted: ___ mg Lasix No Notes: Memoria 2- (Same as: l 22:00: Lasix) MEDICATION WASTE Product Size: 40 mg Product Wasted: ___ mg Lasix No Notes: Memoria 2- (Same as: l 22:00: Lasix) [place] 00 MEDICATION WASTE Product Size: 40 mg Product Wasted: ___ mg Lasix No Notes: Memoria 2-03 (Same as: l 22:00: Lasix) Vin MEDICATION WASTE Product Size: 40 mg Product Wasted: ___ mg Lasix No Notes: Memoria 2-03 (Same as: l 22:00: Lasix) Vin MEDICATION WASTE Product Size: 40 mg Product Wasted: ___ mg Tylenol No Notes: Max Mendoza janice 2-03 acetaminop l 21:52: hen = Vin 00 4000mg/day (4 gm/day). (Same as: Tylenol) Tylenol No Notes: Max Mendoza janice 2-03 acetaminop l 21:52: hen = [place] 00 4000mg/day (4 gm/day). (Same as: Tylenol) Tylenol No Notes: Max Mendoza janice 2-03 acetaminop l 21:52: hen = [place] 00 4000mg/day (4 gm/day). (Same as: Tylenol) Tylenol No Notes: Max Mendoza janice 2-03 acetaminop l 21:52: hen = Vin 00 4000mg/day (4 gm/day). (Same as: Tylenol) Tylenol No Notes: Max Mendoza janice 2-03 acetaminop l 21:52: hen = Vin 00 4000mg/day (4 gm/day). (Same as: Tylenol) Tylenol No Notes: Max Mendoza janice 2-03 acetaminop l 21:52: hen = [place] 00 4000mg/day (4 gm/day). (Same as: Tylenol) Bupropion No 150 mg, 1 Mem oria 2-03 tab, l 15:00: Route: PO, Drug form: ERTAB, Daily, Dosing Weight 92.273, kg, Start date: 07/24/16 9:00:00 FRONT DESK ASSISTANT, Duration: 30 day, Stop date: 08/22/16 9:00:00 FRONT DESK ASSISTANT 24 HR No Notes: [facility]oria Divalproex 2-03 (Same as: l Sodium 500 15:00: Depakote Her braden MG Extended 00 ER) Release Tablet [Depakote] gabapentin No Notes: Memor ia 300 MG Oral 2-03 (Same as: l Capsule 15:00: Neurontin) Herm naeem Aspirin 81 No Notes: Memor ia MG Chewable 2-03 Take with l Tablet 15:00: food. Lasix No Notes: Memoria 2-03 (Same as: l 15:00: Lasix) Vin 00 MEDICATION WASTE Product Size: 40 mg Product Wasted: ___ mg Zoloft No Notes: Memoria 2-03 (Same as: l 15:00: Zoloft) Protonix No Notes: Memoria 2-03 Tablet l 15:00: should not be chewed or crushed. (Same as: Protonix) metoprolol No 100 mg, 2 Me moria extended 2-03 tab, l release 15:00: Route: PO, Drug form: ERTAB, Daily, Start date: 07/24/16 9:00:00 FRONT DESK ASSISTANT, Duration: 30 day, Stop date: 08/22/16 9:00:00 FRONT DESK ASSISTANT Insulin No Notes: [facility] Glargine 2-03 Same as: l 100 UNT/ML 15:00: Lantus) Do H ermann Injectable not hold Solution insulin [Lantus] without contacting prescriber WASTE: F/P - Black; E - Municipal Trash Bin Hydralazine No Notes: Mendoza janice Hydrochlori 2-03 (Same as: l de 100 MG 15:00: Apresoline He rmann Oral Tablet ) May interfere w/enteral feedings Take With Food Bupropion No 150 mg, 1 Mem oria 2-03 tab, l 15:00: Route: PO, Vin Drug form: ERTAB, Daily, Dosing Weight 92.273, kg, Start date: 07/24/16 9:00:00 FRONT DESK ASSISTANT, Duration: 30 day, Stop date: 08/22/16 9:00:00 FRONT DESK ASSISTANT 24 HR No Notes: [facility] Divalproex 2-03 (Same as: l Sodium 500 15:00: Depakote Her braden MG Extended 00 ER) Release Tablet [Depakote] gabapentin No Notes: Memor ia 300 MG Oral 2-03 (Same as: l Capsule 15:00: Neurontin) Herm naeem Aspirin 81 No Notes: Memor ia MG Chewable 2-03 Take with l Tablet 15:00: food. Lasix No Notes: Memoria 2-03 (Same as: l 15:00: Lasix) Vin 00 MEDICATION WASTE Product Size: 40 mg Product Wasted: ___ mg Zoloft No Notes: Memoria 2-03 (Same as: l 15:00: Zoloft) [place] Protonix No Notes: Memoria 2-03 Tablet l 15:00: should not be chewed or crushed. (Same as: Protonix) metoprolol No 100 mg, 2 Me moria extended 2-03 tab, l release 15:00: Route: PO, Drug form: ERTAB, Daily, Start date: 07/24/16 9:00:00 FRONT DESK ASSISTANT, Duration: 30 day, Stop date: 08/22/16 9:00:00 FRONT DESK ASSISTANT Insulin No Notes: [facility] Glargine 2-03 Same as: l 100 UNT/ML 15:00: Lantus) Do H ermann Injectable not hold Solution insulin [Lantus] without contacting prescriber WASTE: F/P - Black; E - Municipal Trash Bin Hydralazine No Notes: Mendoza janice Hydrochlori 2-03 (Same as: l de 100 MG 15:00: Apresoline He rmann Oral Tablet 00 ) May interfere w/enteral feedings Take With Food Bupropion No 150 mg, 1 Mem oria 2-03 tab, l 15:00: Route: PO, [place] 00 Drug form: ERTAB, Daily, Dosing Weight 92.273, kg, Start date: 07/24/16 9:00:00 FRONT DESK ASSISTANT, Duration: 30 day, Stop date: 08/22/16 9:00:00 FRONT DESK ASSISTANT 24 HR No Notes: [facility] Divalproex 2-03 (Same as: l Sodium 500 15:00: Depakote Her braden MG Extended 00 ER) Release Tablet [Depakote] gabapentin No Notes: Memor ia 300 MG Oral 2-03 (Same as: l Capsule 15:00: Neurontin) Herm naeem Aspirin 81 No Notes: Memor ia MG Chewable 2-03 Take with l Tablet 15:00: food. Lasix No Notes: Memoria 2-03 (Same as: l 15:00: Lasix) [place] 00 MEDICATION WASTE Product Size: 40 mg Product Wasted: ___ mg Zoloft No Notes: Memoria 2-03 (Same as: l 15:00: Zoloft) Protonix No Notes: Memoria 2-03 Tablet l 15:00: should not be chewed or crushed. (Same as: Protonix) metoprolol No 100 mg, 2 Me moria extended 2-03 tab, l release 15:00: Route: PO, Drug form: ERTAB, Daily, Start date: 07/24/16 9:00:00 FRONT DESK ASSISTANT, Duration: 30 day, Stop date: 08/22/16 9:00:00 FRONT DESK ASSISTANT Insulin No Notes: [facility] Glargine 2-03 Same as: l 100 UNT/ML 15:00: Lantus) Do H ermann Injectable not hold Solution insulin [Lantus] without contacting prescriber WASTE: F/P - Black; E - Municipal Trash Bin Hydralazine No Notes: Mendoza janice Hydrochlori 2-03 (Same as: l de 100 MG 15:00: Apresoline He rmann Oral Tablet ) May interfere w/enteral feedings Take With Food Bupropion No 150 mg, 1 Mem oria 2-03 tab, l 15:00: Route: PO, Vin 00 Drug form: ERTAB, Daily, Dosing Weight 92.273, kg, Start date: 07/24/16 9:00:00 FRONT DESK ASSISTANT, Duration: 30 day, Stop date: 08/22/16 9:00:00 FRONT DESK ASSISTANT 24 HR No Notes: [facility] Divalproex 2-03 (Same as: l Sodium 500 15:00: Depakote Her braden MG Extended 00 ER) Release Tablet [Depakote] gabapentin No Notes: Memor ia 300 MG Oral 2-03 (Same as: l Capsule 15:00: Neurontin) Herm naeem Aspirin 81 No Notes: Memor ia MG Chewable 2-03 Take with l Tablet 15:00: food. Lasix No Notes: Memoria 2-03 (Same as: l 15:00: Lasix) [place] 00 MEDICATION WASTE Product Size: 40 mg Product Wasted: ___ mg Zoloft No Notes: Memoria 2-03 (Same as: l 15:00: Zoloft) Vin 00 Protonix No Notes: Memoria 2-03 Tablet l 15:00: should not be chewed or crushed. (Same as: Protonix) metoprolol No 100 mg, 2 Me moria extended 2-03 tab, l release 15:00: Route: PO, Herm Drug form: ERTAB, Daily, Start date: 07/24/16 9:00:00 FRONT DESK ASSISTANT, Duration: 30 day, Stop date: 08/22/16 9:00:00 FRONT DESK ASSISTANT Insulin No Notes: [facility] Glargine 2-03 Same as: l 100 UNT/ML 15:00: Lantus) Do H ermann Injectable not hold Solution insulin [Lantus] without contacting prescriber WASTE: F/P - Black; E - Municipal Trash Bin Hydralazine No Notes: Mendoza janice Hydrochlori 2-03 (Same as: l de 100 MG 15:00: Apresoline He rmann Oral Tablet ) May interfere w/enteral feedings Take With Food Bupropion No 150 mg, 1 Mem oria 2-03 tab, l 15:00: Route: PO, Vin Drug form: ERTAB, Daily, Dosing Weight 92.273, kg, Start date: 07/24/16 9:00:00 FRONT DESK ASSISTANT, Duration: 30 day, Stop date: 08/22/16 9:00:00 FRONT DESK ASSISTANT 24 HR No Notes: Mem[facility] Divalproex 2-03 (Same as: l Sodium 500 15:00: Depakote Her braden MG Extended 00 ER) Release Tablet [Depakote] gabapentin No Notes: Memor ia 300 MG Oral 2-03 (Same as: l Capsule 15:00: Neurontin) naeem Aspirin 81 No Notes: Memor ia MG [...] tab, l release 15:00: Route: PO, Herm Drug form: ERTAB, Daily, Start date: 07/24/16 9:00:00 FRONT DESK ASSISTANT, Duration: 30 day, Stop date: 08/22/16 9:00:00 FRONT DESK ASSISTANT Insulin No Notes: Memoria Glargine 2-03 Same as: l 100 UNT/ML 15:00: Lantus) Do H ermann Injectable not hold Solution insulin [Lantus] without contacting prescriber WASTE: F/P - Black; E - Municipal Trash Bin Hydralazine No Notes: Mendoza janice Hydrochlori 2-03 (Same as: l de 100 MG 15:00: Apresoline He rmann Oral Tablet ) May interfere w/enteral feedings Take With Food Bupropion No 150 mg, 1 Mem oria 2-03 tab, l 15:00: Route: PO, [place] 00 Drug form: ERTAB, Daily, Dosing Weight 92.273, kg, Start date: 07/24/16 9:00:00 FRONT DESK ASSISTANT, Duration: 30 day, Stop date: 08/22/16 9:00:00 FRONT DESK ASSISTANT 24 HR No Notes: Memoria Divalproex 2-03 (Same as: l Sodium 500 15:00: Depakote Her braden MG Extended 00 ER) Release Tablet [Depakote] gabapentin No Notes: Memor ia 300 MG Oral 2-03 (Same as: l Capsule 15:00: Neurontin) Herm naeem Aspirin 81 No Notes: Memor ia MG Chewable 2-03 Take with l Tablet 15:00: food. [place] 00 Lasix No Notes: Memoria 2-03 (Same as: l 15:00: Lasix) Vin MEDICATION WASTE Product Size: 40 mg Product Wasted: ___ mg Zoloft No Notes: Memoria 2-03 (Same as: l 15:00: Zoloft) Vin 00 Protonix No Notes: Memoria 2-03 Tablet l 15:00: should not be chewed or crushed. (Same as: Protonix) metoprolol No 100 mg, 2 Me moria extended 2-03 tab, l release 15:00: Route: PO, Herm Drug form: ERTAB, Daily, Start date: 07/24/16 9:00:00 FRONT DESK ASSISTANT, Duration: 30 day, Stop date: 08/22/16 9:00:00 FRONT DESK ASSISTANT Insulin No Notes: Memoria Glargine 2-03 Same as: l 100 UNT/ML 15:00: Lantus) Do H ermann Injectable not hold Solution insulin [Lantus] without contacting prescriber WASTE: F/P - Black; E - Municipal Trash Bin Hydralazine No Notes: Mendoza janice Hydrochlori 2-03 (Same as: l de 100 MG 15:00: Apresoline He rmann Oral Tablet ) May interfere w/enteral feedings Take With Food Ondansetron No Notes: Mendoza janice 2-03 (Same as: l 14:50: Zofran) [place] MEDICATION WASTE Product Size: 4 mg Product Wasted: ___ mg Morphine No Notes: Memoria 2-03 (Same l 14:50: as:MORPhin [place] 00 e Sulfate) Ondansetron No Notes: Mendoza janice 2-03 (Same as: l 14:50: Zofran) Vin MEDICATION WASTE Product Size: 4 mg Product Wasted: ___ mg Morphine No Notes: Memoria 2-03 (Same l 14:50: as:MORPhin [place] 00 e Sulfate) Ondansetron No Notes: Mendoza janice 2-03 (Same as: l 14:50: Zofran) Vin 00 MEDICATION WASTE Product Size: 4 mg Product Wasted: ___ mg Morphine No Notes: Memoria 2-03 (Same l 14:50: as:MORPhin [place] 00 e Sulfate) Ondansetron No Notes: Mendoza janice 2-03 (Same as: l 14:50: Zofran) Vin 00 MEDICATION WASTE Product Size: 4 mg Product Wasted: ___ mg Morphine No Notes: Memoria 2-03 (Same l 14:50: as:MORPhin [place] 00 e Sulfate) Ondansetron No Notes: Mendoza janice 2-03 (Same as: l 14:50: Zofran) [place] 00 MEDICATION WASTE Product Size: 4 mg Product Wasted: ___ mg Morphine No Notes: Memoria 2-03 (Same l 14:50: as:MORPhin [place] 00 e Sulfate) Ondansetron No Notes: Mendoza janice 2-03 (Same as: l 14:50: Zofran) Vin 00 MEDICATION WASTE Product Size: 4 mg Product Wasted: ___ mg Morphine No Notes: Memoria 2-03 (Same l 14:50: as:MORPhin [place] 00 e Sulfate) Insulin, No Notes: Memoria Aspart, 2-03 Roll in l Human 13:30: palms of [place] 00 hands gently; Do not shake vigorously . (Same as: NovoLOG) "single patient use only" WASTE: F/P - Black; E - Municipal Trash Bin Stable for 28 days at room temperatur e. Expires in days from ____Date Insulin, No Notes: Memoria Aspart, 2-03 Roll in l Human 13:30: palms of [place] 00 hands gently; Do not shake vigorously . (Same as: NovoLOG) "single patient use only" WASTE: F/P - Black; E - Municipal Trash Bin Stable for 28 days at room temperatur e. Expires in days from ____Date Insulin, 2016- No Notes: Memoria Aspart, 2-03 Roll in l Human 13:30: palms of [place] 00 hands gently; Do not shake vigorously . (Same as: NovoLOG) "single patient use only" WASTE: F/P - Black; E - Municipal Trash Bin Stable for 28 days at room temperatur e. Expires in days from ____Date Insulin, No Notes: Memoria Aspart, 2-03 Roll in l Human 13:30: palms of [place] 00 hands gently; Do not shake vigorously . (Same as: NovoLOG) "single patient use only" WASTE: F/P - Black; E - Municipal Trash Bin Stable for 28 days at room temperatur e. Expires in days from ____Date Insulin, No Notes: Memoria Aspart, 2-03 Roll in l Human 13:30: palms of [place] 00 hands gently; Do not shake vigorously . (Same as: NovoLOG) "single patient use only" WASTE: F/P - Black; E - Municipal Trash Bin Stable for 28 days at room temperatur e. Expires in days from ____Date Insulin, No Notes: Memoria Aspart, 2-03 Roll in l Human 13:30: palms of [place] 00 hands gently; Do not shake vigorously . (Same as: NovoLOG) "single patient use only" WASTE: F/P - Black; E - Municipal Trash Bin Stable for 28 days at room temperatur e. Expires in days from ____Date Dilaudid No Notes: Memoria 2-03 Same as l 11:28: Dilaudid [place] 00 Dilaudid No Notes: Memoria 2-03 Same as l 11:28: Dilaudid [place] 00 Dilaudid No Notes: Memoria 2-03 Same as l 11:28: Dilaudid [place] 00 Dilaudid No Notes: Memoria 2-03 Same as l 11:28: Dilaudid Vin 00 Dilaudid No Notes: Memoria 2-03 Same as l 11:28: Dilaudid [place] 00 Dilaudid No Notes: Memoria 2-03 Same as [...] Blood Glucose Results, Start date: 07/24/16 2:40:00 FRONT DESK ASSISTANT, Duration: 30 day, Stop date: 08/23/16 2:39:00 FRONT DESK ASSISTANT Dextrose No 25 gm, 50 Mendoza janice 50% Syringe 2-03 mL, Route: l 08:40: IVP, Drug Vin 00 Form: INJ, Dosing Weight 92.273, kg, PRN, PRN Blood Glucose Results, Start date: 07/24/16 2:40:00 FRONT DESK ASSISTANT, Duration: 30 day, Stop date: 08/23/16 2:39:00 FRONT DESK ASSISTANT Insulin, No Notes: Memoria Aspart, 2-03 Roll in l Human 08:40: palms of [place] 00 hands gently; Do not shake vigorously . (Same as: NovoLOG) "single patient use only" WASTE: F/P - Black; E - Municipal Trash Bin Stable for 28 days at room temperatur e. Expires in days from ____Date Glucagon 2017-0 No 1 mg, Memoria 2-03 Route: IM, l 08:40: Drug form: [place] 00 PDR/INJ, PRN, Dosing Weight 92.273, kg, PRN Blood Glucose Results, Start date: 07/24/16 2:40:00 FRONT DESK ASSISTANT, Duration: 30 day, Stop date: 08/23/16 2:39:00 FRONT DESK ASSISTANT Dextrose 2017-0 No 25 gm, 50 Mendoza janice 50% Syringe 2-03 mL, Route: l 08:40: IVP, Drug Ivn 00 Form: INJ, Dosing Weight 92.273, kg, PRN, PRN Blood Glucose Results, Start date: 07/24/16 2:40:00 FRONT DESK ASSISTANT, Duration: 30 day, Stop date: 08/23/16 2:39:00 FRONT DESK ASSISTANT Insulin, 2017-0 No Notes: Memoria Aspart, 2-03 Roll in l Human 08:40: palms of [place] 00 hands gently; Do not shake vigorously . (Same as: NovoLOG) "single patient use only" WASTE: F/P - Black; E - Municipal Trash Bin Stable for 28 days at room temperatur e. Expires in days from ____Date Glucagon 2016-0 No 1 mg, Memoria 2-03 Route: IM, l 08:40: Drug form: Vin 00 PDR/INJ, PRN, Dosing Weight 92.273, kg, PRN Blood Glucose Results, Start date: 07/24/16 2:40:00 FRONT DESK ASSISTANT, Duration: 30 day, Stop date: 08/23/16 2:39:00 FRONT DESK ASSISTANT Dextrose 2017-0 No 25 gm, 50 Mendoza janice 50% Syringe 2-03 mL, Route: l 08:40: IVP, Drug Vin 00 Form: INJ, Dosing Weight 92.273, kg, PRN, PRN Blood Glucose Results, Start date: 07/24/16 2:40:00 FRONT DESK ASSISTANT, Duration: 30 day, Stop date: 08/23/16 2:39:00 FRONT DESK ASSISTANT Insulin, 2017-0 No Notes: Memoria Aspart, 2-03 Roll in l Human 08:40: palms of [place] 00 hands gently; Do not shake vigorously . (Same as: NovoLOG) "single patient use only" WASTE: F/P - Black; E - Municipal Trash Bin Stable for 28 days at room temperatur e. Expires in days from ____Date Glucagon 2017-0 No 1 mg, Memoria 2-03 Route: IM, l 08:40: Drug form: Vin 00 PDR/INJ, PRN, Dosing Weight 92.273, kg, PRN Blood Glucose Results, Start date: 07/24/16 2:40:00 FRONT DESK ASSISTANT, Duration: 30 day, Stop date: 08/23/16 2:39:00 FRONT DESK ASSISTANT Dextrose 2017-0 No 25 gm, 50 Mendoza janice 50% Syringe 2-03 mL, Route: l 08:40: IVP, Drug Vin 00 Form: INJ, Dosing Weight 92.273, kg, PRN, PRN Blood Glucose Results, Start date: 07/24/16 2:40:00 FRONT DESK ASSISTANT, Duration: 30 day, Stop date: 08/23/16 2:39:00 FRONT DESK ASSISTANT Insulin, 2017-0 No Notes: Memoria Aspart, 2-03 Roll in l Human 08:40: palms of [place] hands gently; Do not shake vigorously . (Same as: NovoLOG) "single patient use only" WASTE: F/P - Black; E - Municipal Trash Bin Stable for 28 days at room temperatur e. Expires in days from ____Date Glucagon 2017-0 No 1 mg, Memoria 2-03 Route: IM, l 08:40: Drug form: [place] 00 PDR/INJ, PRN, Dosing Weight 92.273, kg, PRN Blood Glucose Results, Start date: 07/24/16 2:40:00 FRONT DESK ASSISTANT, Duration: 30 day, Stop date: 08/23/16 2:39:00 FRONT DESK ASSISTANT Dextrose 2017-0 No 25 gm, 50 Mendoza janice 50% Syringe 2-03 mL, Route: l 08:40: IVP, Drug Vin 00 Form: INJ, Dosing Weight 92.273, kg, PRN, PRN Blood Glucose Results, Start date: 07/24/16 2:40:00 FRONT DESK ASSISTANT, Duration: 30 day, Stop date: 08/23/16 2:39:00 FRONT DESK ASSISTANT Insulin, 2017-0 No Notes: Memoria Aspart, 2-03 Roll in [...] Blood Glucose Results, Start date: 07/24/16 2:40:00 FRONT DESK ASSISTANT, Duration: 30 day, Stop date: 08/23/16 2:39:00 FRONT DESK ASSISTANT Dextrose No 25 gm, 50 Mendzoa janice 50% Syringe 2-03 mL, Route: l 08:40: IVP, Drug [place] 00 Form: INJ, Dosing Weight 92.273, kg, PRN, PRN Blood Glucose Results, Start date: 07/24/16 2:40:00 FRONT DESK ASSISTANT, Duration: 30 day, Stop date: 08/23/16 2:39:00 FRONT DESK ASSISTANT Docusate No Notes: Memoria 2-03 (Same as: l 07:20: Colace) [place] 00 (Do Not Crush) Ondansetron No Notes: Mendoza janice 2-03 (Same as: l 07:20: Zofran) [place] 00 MEDICATION WASTE Product Size: 4 mg Product Wasted: ___ mg Docusate No Notes: Memoria 2-03 (Same as: l 07:20: Colace) Vin 00 (Do Not Crush) Ondansetron No Notes: Mendoza janice 2-03 (Same as: l 07:20: Zofran) [place] 00 MEDICATION WASTE Product Size: 4 mg Product Wasted: ___ mg Docusate No Notes: Memoria 2-03 (Same as: l 07:20: Colace) [place] 00 (Do Not Crush) Ondansetron No Notes: Mendoza janice 2-03 (Same as: l 07:20: Zofran) Vin 00 MEDICATION WASTE Product Size: 4 mg Product Wasted: ___ mg Docusate 2017-0 No Notes: Memoria 2- (Same as: l 07:20: Colace) [place] 00 (Do Not Crush) Ondansetron 2016-0 No Notes: Mendoza janice 2- (Same as: l 07:20: Zofran) Vin 00 MEDICATION WASTE Product Size: 4 mg Product Wasted: ___ mg Docusate 2016-0 No Notes: Memoria 2- (Same as: l 07:20: Colace) [place] 00 (Do Not Crush) Ondansetron 2016-0 No Notes: Mendoza janice 2- (Same as: l 07:20: Zofran) Vin 00 MEDICATION WASTE Product Size: 4 mg Product Wasted: ___ mg Docusate 2016-0 No Notes: Memoria 2- (Same as: l 07:20: Colace) [place] 00 (Do Not Crush) Ondansetron 0 No Notes: Mendoza janice 2- (Same as: l 07:20: Zofran) Vin 00 MEDICATION WASTE Product Size: 4 mg Product Wasted: ___ mg Lasix 2016-0 No Notes: Memoria 2- (Same as: l 06:01: Lasix) Vin 00 MEDICATION WASTE Product Size: 40 mg Product Wasted: ___ mg Lasix 2016-0 No Notes: [facility] 2- (Same as: l 06:01: Lasix) Vin 00 MEDICATION WASTE Product Size: 40 mg Product Wasted: ___ mg Lasix 2017-0 No Notes: Memoria 2- (Same as: l 06:01: Lasix) Vin 00 MEDICATION WASTE Product Size: 40 mg Product Wasted: ___ mg Lasix 2017-0 No Notes: Memoria 2- (Same as: l 06:01: Lasix) Vin 00 MEDICATION WASTE Product Size: 40 mg Product Wasted: ___ mg Lasix 2017-0 No Notes: Memoria 2-03 (Same as: l 06:01: Lasix) MEDICATION WASTE Product Size: 40 mg Product Wasted: ___ mg Lasix No Notes: Memoria 2-03 (Same as: l 06:01: Lasix) MEDICATION WASTE Product Size: 40 mg Product Wasted: ___ mg Aspirin No Notes: Memoria 2-03 Take with l 05:48: food. Aspirin No Notes: Memoria 2-03 Take with l 05:48: food. Aspirin No Notes: Memoria 2-03 Take with l 05:48: food. Aspirin No Notes: Memoria 2-03 Take with l 05:48: food. Aspirin No Notes: Memoria 2-03 Take with l 05:48: food. Aspirin No Notes: Memoria 2-03 Take with l 05:48: food. Prednisone No Notes: Memor ia 2-03 Take with l 05:02: food. Prednisone No Notes: Memor ia 2-03 Take with l 05:02: food. Prednisone No Notes: Memor ia 2-03 Take with l 05:02: food. Prednisone No Notes: Memor ia 2-03 Take with l 05:02: food. Prednisone No Notes: Memor ia 2-03 Take with l 05:02: food. Prednisone No Notes: Memor ia 2-03 Take with l 05:02: food. Albuterol No Notes: Memori a 0.833 MG/ML 2-03 (Same as: l / 04:09: Duoneb) Ipratropium 00 [place] 0.167 MG/ML Inhalant Solution [DuoNeb] Albuterol No Notes: Memori a 0.833 MG/ML 2-03 (Same as: l / 04:09: Duoneb) Ipratropium 00 [place] 0.167 MG/ML Inhalant Solution [DuoNeb] Albuterol No Notes: Memori a 0.833 MG/ML 2- (Same as: :: Duoneb) [place] Ipratropium 00 [place] 0.167 MG/ML Inhalant Solution [DuoNeb] Albuterol No Notes: Memori a 0.833 MG/ML 2- (Same as: :09: Duoneb) [place] Ipratropium 00 [place] 0.167 MG/ML Inhalant Solution [DuoNeb] Albuterol No Notes: Memori a 0.833 MG/ML 2- (Same as: :09: Duoneb) [place] Ipratropium 00 [place] 0.167 MG/ML Inhalant Solution [DuoNeb] Albuterol No Notes: Memori a 0.833 MG/ML 07-24 (Same as: :: Duoneb) Vin Ipratropium 00 [place] 0.167 MG/ML Inhalant Solution [DuoNeb] Furosemide 2015-06 Yes 80 mg = 2 Me moria 40 MG Oral 2-26 tab, PO, l Tablet 16:34: BID, # 120 Nidia nn 00 tab, 0 Refill(s) atorvastati 2015-06 Yes 40 mg = 1 M emoria n 40 mg 2-26 tab, PO, l oral tablet 16:34: Bedtime, # [place] 00 30 tab, 0 Refill(s) Insulin 2015-06 [...] INHALATION l 0.09 16:34: , PRN, PRN [place] MG/ACTUAT 00 as needed Metered for Dose wheezing, Inhaler use as needed for shortness of breath or wheezing, # 8 gm, 0 Refill(s) Aspirin 81 2015-06 Yes 81 mg = 1 Me moria MG Chewable 2-26 tab, PO, l Tablet 16:34: Daily, # [place] 00 30 tab, 0 Refill(s) Hydroxyzine 2015-06 Yes 50 mg = 1 M emoria Hydrochlori 2-26 cap, PO, l de 50 MG 16:34: TID, X 30 Herm naeem Oral 00 day, # 90 Capsule cap, 0 Refill(s) Furosemide 2015-06 Yes 80 mg = 2 [...] INHALATION l 0.09 16:34: , PRN, PRN [place] MG/ACTUAT 00 as needed Metered for Dose wheezing, Inhaler use as needed for shortness of breath or wheezing, # 8 gm, 0 Refill(s) losartan 25 2015-06 Yes 25 mg = 1 M emoria mg oral 2-26 tab, PO, l tablet 16:34: Daily, # [place] 00 30 tab, 0 Refill(s) Aspirin 81 2015-06 Yes 81 mg = 1 Me moria MG Chewable 2-26 tab, PO, l Tablet 16:34: Daily, # [place] 00 30 tab, 0 Refill(s) Hydroxyzine 2015-06 Yes 50 mg = 1 M emoria Hydrochlori 2-26 cap, PO, l de 50 MG 16:34: TID, X 30 Herm naeem Oral 00 day, # 90 Capsule cap, 0 Refill(s) losartan 25 2015-06 Yes 25 mg = 1 M emoria mg oral 2-26 tab, PO, l tablet 16:34: Daily, # [place] 00 30 tab, 0 Refill(s) Furosemide 2015-06 Yes 80 mg = 2 [...] SUB-Q, l 100 UNT/ML 16:34: Daily, # braden Injectable 00 10 mL, 0 Solution [...] INHALATION l 0.09 16:34: , PRN, PRN [place] MG/ACTUAT 00 as needed Metered for Dose wheezing, Inhaler use as needed for shortness of breath or wheezing, # 8 gm, 0 Refill(s) Aspirin 81 2015-06 Yes 81 mg = 1 Me moria MG Chewable 2-26 tab, PO, l Tablet 16:34: Daily, # [place] 00 30 tab, 0 Refill(s) Hydroxyzine 2015-06 Yes 50 mg = 1 M emoria Hydrochlori 2-26 cap, PO, l de 50 MG 16:34: TID, X 30 Herm naeem Oral 00 day, # 90 Capsule cap, 0 Refill(s) losartan 25 2015-06 Yes 25 mg = 1 M emoria mg oral 2-26 tab, PO, l tablet 16:34: Daily, # [place] 00 30 tab, 0 Refill(s) Furosemide 2015-06 Yes 80 mg = 2 Me moria 40 MG Oral 2-26 tab, PO, l Tablet 16:34: BID, # 120 Nidia nn 00 tab, 0 Refill(s) atorvastati 2015-06 Yes 40 mg = 1 M emoria n 40 mg 2-26 tab, PO, l oral tablet 16:34: Bedtime, # [place] 00 30 tab, 0 Refill(s) Insulin 2015-06 Yes 40 unit, Memori a Glargine 2-26 SUB-Q, l 100 UNT/ML 16:34: Daily, # braden Injectable 00 10 mL, 0 Solution [...] INHALATION l 0.09 16:34: , PRN, PRN [place] MG/ACTUAT 00 as needed Metered for Dose wheezing, Inhaler use as needed for shortness of breath or wheezing, # 8 gm, 0 Refill(s) Aspirin 81 2015-06 Yes 81 mg = 1 Me moria MG Chewable 2-26 tab, PO, l Tablet 16:34: Daily, # [place] 00 30 tab, 0 Refill(s) Hydroxyzine 2015-06 Yes 50 mg = 1 M emoria Hydrochlori 2-26 cap, PO, l de 50 MG 16:34: TID, X 30 Herm naeem Oral 00 day, # 90 Capsule cap, 0 Refill(s) losartan 25 2015-06 Yes 25 mg = 1 M emoria mg oral 2-26 tab, PO, l tablet 16:34: Daily, # Vin 00 30 tab, 0 Refill(s) Furosemide 2015-06 Yes 80 mg = 2 [...] INHALATION l 0.09 16:34: , PRN, PRN [place] MG/ACTUAT 00 as needed Metered for Dose wheezing, Inhaler use as needed for shortness of breath or wheezing, # 8 gm, 0 Refill(s) Aspirin 81 2015-06 Yes 81 mg = 1 Me moria MG Chewable 2-26 tab, PO, l Tablet 16:34: Daily, # [place] 00 30 tab, 0 Refill(s) Hydroxyzine 2015-06 Yes 50 mg = 1 M emoria Hydrochlori 2-26 cap, PO, l de 50 MG 16:34: TID, X 30 Herm naeem Oral day, # 90 Capsule cap, 0 Refill(s) losartan 25 2015-06 Yes 25 mg = 1 M emoria mg oral 2-26 tab, PO, l tablet 16:34: Daily, # [place] 00 30 tab, 0 Refill(s) Furosemide 2015-06 Yes 80 mg = 2 [...] INHALATION l 0.09 16:34: , PRN, PRN [place] MG/ACTUAT 00 as needed Metered for Dose [...] tab, PO, l tablet 16:34: Daily, # [place] 00 30 tab, 0 Refill(s) Lasix 2015-06 No Notes: Memoria 2-26 (Same as: l 15:00: Lasix) [place] 00 May cause GI upset. Give with food or milk. Lasix 2015-06 No Notes: Memoria 2-26 (Same as: l 15:00: Lasix) [place] 00 May cause GI upset. Give with food or milk. Lasix 2015-06 No Notes: Memoria 2-26 (Same as: l 15:00: Lasix) [place] 00 May cause GI upset. Give with food or milk. Lasix 2015-06 No Notes: Memoria 2-26 (Same as: l 15:00: Lasix) [place] 00 May cause GI upset. Give with food or milk. Lasix 2015-06 No Notes: Mem[facility] 2-26 (Same as: l 15:00: Lasix) [place] 00 May cause GI upset. Give with food or milk. Lasix 2015-06 No Notes: Memoria 2-26 (Same as: l 15:00: Lasix) [place] 00 May cause GI upset. Give with food or milk. Magnesium 2015-06 No Notes: Memori a Oxide 2-24 (Same as: l 13:36: Mag-Ox [place] 00 400) Magnesium oxide 616ir=246y g elemental magnesium Dose=____m g magnesium oxide (___mg elemental magnesium) Magnesium 2015-06 No Notes: Memori a Oxide 2-24 (Same as: l 13:36: Mag-Ox [place] 00 400) Magnesium oxide 280eb=933w g elemental magnesium Dose=____m g magnesium oxide (___mg elemental magnesium) Magnesium 2015-06 No Notes: Memori a Oxide 2-24 (Same as: l 13:36: Mag-Ox [place] 00 400) Magnesium oxide 164qk=178e g elemental magnesium Dose=____m g magnesium oxide (___mg elemental magnesium) Magnesium 2015-06 No Notes: Memori a Oxide 2-24 (Same as: l 13:36: Mag-Ox [place] 00 400) Magnesium oxide 918tk=645m g elemental magnesium Dose=____m g magnesium oxide (___mg elemental magnesium) Magnesium 2015-06 No Notes: Memori a Oxide 2-24 (Same as: l 13:36: Mag-Ox [place] 00 400) Magnesium oxide 417sf=470k g elemental magnesium Dose=____m g magnesium oxide (___mg elemental magnesium) Magnesium 2015-06 No Notes: Memori a Oxide 2-24 (Same as: l 13:36: [facility] 400) Magnesium oxide 334nq=223r g elemental magnesium Dose=____m g magnesium oxide (___mg elemental magnesium) Magnesium 2015-06 No Notes: Memori a Oxide 2-24 (Same as: l :47: [facility] 400) Magnesium oxide 544ha=147m g elemental magnesium Dose=____m g magnesium oxide (___mg elemental magnesium) Magnesium 2015-06 No Notes: Memori a Oxide 2-24 (Same as: l :47: [facility] 400) Magnesium oxide 642lc=263m g elemental magnesium Dose=____m g magnesium oxide (___mg elemental magnesium) Magnesium 2015-06 No Notes: Memori a Oxide 2-24 (Same as: l :47: [facility] 400) Magnesium oxide 584lm=834e g elemental magnesium Dose=____m g magnesium oxide (___mg elemental magnesium) Magnesium 2015-06 No Notes: Memori a Oxide 2-24 (Same as: l :47: [facility]) Magnesium oxide 716dm=022f g elemental magnesium Dose=____m g magnesium oxide (___mg elemental magnesium) Magnesium 2015-06 No Notes: Memori a Oxide 2-24 (Same as: l :47: [facility] 400) Magnesium oxide 911mv=221a g elemental magnesium Dose=____m g magnesium oxide (___mg elemental magnesium) Magnesium 2015-06 No Notes: Memori a Oxide 2-24 (Same as: l :47: [facility] 400) Magnesium oxide 756ap=746n g elemental magnesium Dose=____m g magnesium oxide (___mg elemental magnesium) 24 HR 2015-06 No Notes: Memoria Nifedipine 2-24 (Same as: l 30 MG 04:33: Adalat CC, Jake n Extended 00 Procardia Release XL) Give Tablet on empty [Procardia] stomach. Take 1 hour before or 2 hours after meal; "Avoid grapefruit and grapefruit juice". Do not crush 24 HR 2015-06 No Notes: Memoria Nifedipine 2-24 (Same as: l 30 MG 04:33: Adalat CC, Jake n Extended 00 Procardia Release XL) Give Tablet on empty [Procardia] stomach. Take 1 hour before or 2 hours after meal; "Avoid grapefruit and grapefruit juice". Do not crush 24 HR 2015-06 No Notes: Memoria Nifedipine 2-24 (Same as: l 30 MG 04:33: Adalat CC, Jake n Extended 00 Procardia Release XL) Give Tablet on empty [Procardia] stomach. Take 1 hour before or 2 hours after meal; "Avoid grapefruit and grapefruit juice". Do not crush 24 HR 2015-06 No Notes: Memoria Nifedipine 2-24 (Same as: l 30 MG 04:33: Adalat CC, Jake n Extended 00 Procardia Release XL) Give Tablet on empty [Procardia] stomach. Take 1 hour before or 2 hours after meal; "Avoid grapefruit and grapefruit juice". Do not crush 24 HR 2015-06 No Notes: Memoria Nifedipine 2-24 (Same as: l 30 MG 04:33: Adalat CC, Jake n Extended 00 Procardia Release XL) Give Tablet on empty [Procardia] stomach. Take 1 hour before or 2 hours after meal; "Avoid grapefruit and grapefruit juice". Do not crush 24 HR 2015-06 No Notes: Memoria Nifedipine [...] May interfere w/enteral feedings Take With Food hydrALAZINE 2015-06 No Notes: Mendoza janice 50 mg oral 2-24 (Same as: l tablet 01:08: Apresoline Nidia nn 00 ) May interfere w/enteral feedings Take With Food hydrALAZINE 2015-06 No Notes: Mendoza janice 50 mg oral 2-24 (Same as: l tablet 01:08: Apresoline Nidia nn 00 ) May interfere w/enteral feedings Take With Food hydrALAZINE 2015-06 No Notes: Mendoza janice 50 mg oral 2-24 (Same as: l tablet 01:08: Apresoline Nidia nn 00 ) May interfere w/enteral feedings Take With Food hydrALAZINE 2015-06 No Notes: Mendoza janice 50 mg oral 2-24 (Same as: l tablet 01:08: Apresoline Nidia nn ) May interfere w/enteral feedings Take With Food hydrALAZINE 2015-06 No Notes: Mendoza janice 50 mg oral 2-24 (Same as: l tablet 01:08: Apresoline Nidia nn 00 ) May interfere w/enteral feedings Take With Food Wellbutrin 2015-06 No Notes: Memor ia XL 2-24 (Same as: l 00:00: Wellbutrin [place] 00 XL) "[facility]" [facility] No Notes: Memoria 2-24 (Same as: l 00:00: Norvasc) Vin Wellbutrin 2015-06 No Notes: Memor ia XL 2-24 (Same as: l 00:00: Wellbutrin [place] 00 XL) "[facility]" [facility] No Notes: Memoria 2-24 (Same as: l 00:00: Norvasc) [place] 00 Wellbutrin 2015-06 No Notes: Memor ia XL 2-24 (Same as: l 00:00: Wellbutrin [place] 00 XL) "Do Not Crush" Norvasc 2015-06 No Notes: Memoria 2-24 (Same as: l 00:00: Norvasc) [place] 00 Wellbutrin 2015-06 No Notes: Memor ia XL 2-24 (Same as: l 00:00: Wellbutrin [place] 00 XL) "Do Not Crush" Norvasc 2015-06 No Notes: Memoria 2-24 (Same as: l 00:00: Norvasc) [place] 00 Wellbutrin 2015-06 No Notes: Memor ia XL 2-24 (Same as: l 00:00: Wellbutrin [place] 00 XL) "Do Not Crush" Norvasc 2015-06 No Notes: Memoria 2-24 (Same as: l 00:00: Norvasc) [place] 00 Wellbutrin 2015-06 No Notes: Memor ia XL 2-24 (Same as: l 00:00: Wellbutrin [place] 00 XL) "Do Not Crush" Norvasc 2015-06 No Notes: Memoria 2-24 (Same as: l 00:00: [facility]) [place] 00 Insulin 2015-06 No Notes: Memoria Glargine 2-23 Same as: l 100 UNT/ML 16:00: Lantus) Do H ermann Injectable 00 not hold Solution insulin [Lantus] without contacting prescriber WASTE: F/P - Black; E - [facility] Tr[facility] Insulin 2015-06 No Notes: Memoria Glargine 2-23 Same as: l 100 UNT/ML 16:00: Lantus) Do H ermann Injectable 00 not hold Solution insulin [Lantus] without contacting prescriber WASTE: F/P - Black; E - [facility] Trash [facility] Insulin 2015-06 No Notes: Memoria Glargine 2-23 Same as: l 100 UNT/ML 16:00: Lantus) Do H ermann Injectable 00 not hold Solution insulin [Lantus] without contacting prescriber WASTE: F/P - Black; E - [facility] Trash Bin Insulin 2015-06 No Notes: Memoria Glargine 2-23 Same as: l 100 UNT/ML 16:00: Lantus) Do H ermann Injectable 00 not hold Solution insulin [Lantus] without contacting prescriber WASTE: F/P - Black; E - [facility] Trash [facility] Insulin 2015-06 No Notes: Memoria Glargine 2-23 Same as: l 100 UNT/ML 16:00: Lantus) Do H ermann Injectable 00 not hold Solution insulin [Lantus] without contacting prescriber WASTE: F/P - Black; E - [facility] Trash [facility] Insulin 2015-06 No Notes: Memoria Glargine 2-23 Same as: l 100 UNT/ML 16:00: Lantus) Do H ermann Injectable 00 not hold Solution insulin [Lantus] without contacting prescriber WASTE: F/P - Black; E - [facility] Trash [facility] 1 ML 2015-06 Yes IM, Memoria paliperidon 2-23 qMonth, 0 l e palmitate 15:48: Refill(s) H ermann 156 MG/ML 00 Prefilled Syringe [Invega] 1 ML 2015-06 Yes IM, Memoria paliperidon 2-23 qMonth, 0 l e palmitate 15:48: Refill(s) H ermann 156 MG/ML 00 Prefilled Syringe [Invega] 1 ML 2015-06 Yes IM, Memoria paliperidon 2-23 qMonth, 0 l e palmitate 15:48: Refill(s) H ermann 156 MG/ML 00 Prefilled Syringe [Invega] 1 ML 2015-06 Yes IM, Memoria paliperidon 2-23 qMonth, 0 l e palmitate 15:48: Refill(s) H ermann 156 MG/ML 00 Prefilled Syringe [Invega] 1 ML 2015-06 Yes IM, Memoria paliperidon 2-23 qMonth, 0 l e palmitate 15:48: Refill(s) H ermann 156 MG/ML 00 Prefilled Syringe [Invega] 1 ML 2015-06 Yes IM, Memoria paliperidon [...] tab, PO, l tablet 15:35: Daily, 0 [place] 00 Refill(s) amLODIPine 2015-06 No 10 mg = 1 Me moria 10 mg oral 2-23 tab, PO, l tablet 15:35: Daily, 0 [place] 00 Refill(s) pravastatin 2015-06 No 40 mg = 1 M emoria 40 mg oral 2-23 tab, PO, l tablet 15:35: Daily, 0 [place] 00 Refill(s) amLODIPine 2015-06 No 10 mg = 1 Me moria 10 mg oral 2-23 tab, PO, l tablet 15:35: Daily, 0 [place] 00 Refill(s) pravastatin 2015-06 No 40 mg = 1 M emoria 40 mg oral 2-23 tab, PO, l tablet 15:35: Daily, 0 [place] 00 Refill(s) amLODIPine 2015-06 No 10 mg = 1 Me moria 10 mg oral 2-23 tab, PO, l tablet 15:35: Daily, 0 [place] 00 Refill(s) pravastatin 2015-06 No 40 mg = 1 M emoria 40 mg oral 2-23 tab, PO, l tablet 15:35: Daily, 0 [place] 00 Refill(s) amLODIPine 2015-06 No 10 mg = 1 Me moria 10 mg oral 2-23 tab, PO, l tablet 15:35: Daily, 0 [place] 00 Refill(s) pravastatin 2015-06 No 40 mg = 1 M emoria 40 mg oral 2-23 tab, PO, l tablet 15:35: Daily, 0 Vin 00 Refill(s) amLODIPine 2015-06 No 10 mg = 1 Me moria 10 mg oral 2-23 tab, PO, l tablet 15:35: Daily, 0 [place] 00 Refill(s) pravastatin 2015-06 No 40 mg = 1 M emoria 40 mg oral 2-23 tab, PO, l tablet 15:35: Daily, 0 [place] 00 Refill(s) Sertraline 2015-06 Yes 200 mg [...] AND 1 l Capsule 15:27: CAP AT [place] 00 BEDTIME, 0 Refill(s) Insulin, 2015-06 No [...] AT Release BEDTIME, 0 Tablet Refill(s) [Depakote] Sertraline 2015-06 Yes 200 mg = 2 [...] AT Release BEDTIME, 0 Tablet Refill(s) [Depakote] Sertraline 2015-06 Yes 200 mg = 2 [...] AND 1 l Capsule 15:27: CAP AT [place] 00 BEDTIME, 0 Refill(s) Insulin, 2015-06 No [...] AT Release BEDTIME, 0 Tablet Refill(s) [Depakote] Sertraline 2015-06 Yes 200 mg = 2 [...] AT Release BEDTIME, 0 Tablet Refill(s) [Depakote] Sertraline 2015-06 Yes 200 mg = 2 [...] AND 1 l Capsule 15:27: CAP AT [place] 00 BEDTIME, 0 Refill(s) Insulin, 2015-06 No [...] AT Release BEDTIME, 0 Tablet Refill(s) [Depakote] Sertraline 2015-06 Yes 200 mg = 2 M emoria 100 MG Oral 2-23 tab, PO, l Tablet 15:27: Daily, 0 [place] [Zoloft] 00 Refill(s) pantoprazol 2015-06 Yes 40 [...] n 2-23 (Same as: l 03:00: Lipitor) atorvastati 2015-06 No Notes: Mendoza janice n 2-23 (Same as: l 03:00: Lipitor) atorvastati 2015-06 No Notes: Mendoza janice n 2-23 (Same as: l 03:00: Lipitor) atorvastati 2015-06 No Notes: Mendoza janice n 2-23 (Same as: l 03:00: Lipitor) atorvastati 2015-06 No Notes: Mendoza janice n 2-23 (Same as: l 03:00: Lipitor) atorvastati 2015-06 No Notes: Mendoza janice n 2-23 (Same as: l 03:00: Lipitor) Lactulose 2015-06 No Notes: Memori a 2-22 (Same l 19:00: as:Chronul Vin ) Lactulose 2015-06 No Notes: Memori a 2-22 (Same l 19:00: as:Chronul [place] ac) Lactulose 2015-06 No Notes: Memori a 2-22 (Same l 19:00: as:Chronul Vin 00 ac) Lactulose 2015-06 No Notes: Memori a 2-22 (Same l 19:00: as:ul ) Lactulose 2015-06 No Notes: Memori a 2-22 (Same l 19:00: as:Chronul ) Lactulose 2015-06 No Notes: Memori a 2-22 (Same l 19:00: as:Chronul ) Furosemide 2015-06 No Notes: Memor ia 2-22 (Same as: l 15:00: Lasix) MEDICATION WASTE Product Size: 40 mg Product Wasted: ___ mg Aspirin 81 2015-06 No Notes: Memor ia MG Chewable 2-22 Take with l Tablet 15:00: food. gabapentin 2015-06 No Notes: Memor ia 300 MG Oral -22 (Same as: l Capsule 15:00: Neurontin) Divalproex 2015-06 No Notes: Memor ia Sodium 500 - (Same as: l MG Enteric 15:00: Depakote Her braden Coated ER) Once Tablet daily [Depakote] dosing; indicated for migraines. Divalproe x sodium extended-r elease tab. Do not chew or crush. 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, Duration: 30 day, Stop date: 07/10/16 9:00:00 FRONT DESK ASSISTANT Insulin 2015-06 No Notes: Memoria Glargine 2-22 Same as: l 100 UNT/ML 15:00: Lantus) Do H erm not hold Solution insulin [Lantus] without contacting prescriber WASTE: F/P - Black; E - [facility] Trash [facility] Zoloft 2015-06 No Notes: Memoria 2-22 (Same as: l 15:00: Zoloft) Furosemide 2015-06 No Notes: Memor ia 2-22 [...] Weight 86.364, kg, Start date: 06/11/16 9:00:00 FRONT DESK ASSISTANT, Duration: 30 day, Stop date: 07/10/16 9:00:00 FRONT DESK ASSISTANT Insulin 2015-06 No Notes: Memoria Glargine 2-22 Same as: l 100 UNT/ML 15:00: Lantus) Do H ermann Injectable not hold Solution insulin [Lantus] without contacting prescriber WASTE: F/P - Black; E - [facility] Trash Bin Zoloft 2015-06 No Notes: Memoria 2-22 (Same as: l 15:00: Zoloft) Furosemide 2015-06 No Notes: Memor ia 2-22 [...] Weight 86.364, kg, Start date: 06/11/16 9:00:00 FRONT DESK ASSISTANT, Duration: 30 day, Stop date: 07/10/16 9:00:00 FRONT DESK ASSISTANT Insulin 2015-06 No Notes: Memoria Glargine 2-22 Same as: l 100 UNT/ML 15:00: Lantus) Do H ermann Injectable not hold Solution insulin [Lantus] without contacting prescriber WASTE: F/P - Black; E - [facility] Trash [facility] Zoloft 2015-06 No Notes: Memoria 2-22 (Same as: l 15:00: Zoloft) Furosemide 2015-06 No Notes: Memor ia 2-22 [...] Weight 86.364, kg, Start date: 06/11/16 9:00:00 FRONT DESK ASSISTANT, Duration: 30 day, Stop date: 07/10/16 9:00:00 FRONT DESK ASSISTANT Insulin 2015-06 No Notes: Memoria Glargine 2-22 Same as: l 100 UNT/ML 15:00: Lantus) Do H ermann Injectable 00 not hold Solution insulin [Lantus] without contacting prescriber WASTE: F/P - Black; E - [facility] Trash [facility] Zoloft 2015-06 No Notes: Memoria 2-22 (Same as: l 15:00: Zoloft) Furosemide 2015-06 No Notes: Memor ia 2-22 [...] Weight 86.364, kg, Start date: 06/11/16 9:00:00 FRONT DESK ASSISTANT, Duration: 30 day, Stop date: 07/10/16 9:00:00 FRONT DESK ASSISTANT Insulin 2015-06 No Notes: Memoria Glargine 2-22 Same as: l 100 UNT/ML 15:00: Lantus) Do H erm Injectable not hold Solution insulin [Lantus] without contacting prescriber WASTE: F/P - Black; E - [facility] Trash Bin Zoloft 2015-06 No Notes: Memoria 2-22 (Same as: l 15:00: Zoloft) Furosemide 2015-06 No Notes: Memor ia 2-22 [...] 2-22 Route: PO, l 15:00: Drug form: [place] ECTAB, Daily, Dosing Weight 86.364, kg, Start date: 06/11/16 9:00:00 FRONT DESK ASSISTANT, Duration: 30 day, Stop date: 07/10/16 9:00:00 FRONT DESK ASSISTANT Insulin 2015-06 No Notes: Memoria Glargine 2-22 Same as: l 100 UNT/ML 15:00: Lantus) Do H ermann Injectable 00 not hold Solution insulin [Lantus] without contacting prescriber WASTE: F/P - Black; E - [facility] Trash Bin Zoloft 2015-06 No Notes: Memoria 2-22 (Same as: l 15:00: Zoloft) [place] 00 Insulin, 2015-06 No Notes: Memoria Aspart, 2-22 Roll in l Human 12:55: palms of Vin 00 hands gently; Do not shake vigorously . (Same as: NovoLOG) "single patient use only" WASTE: F/P - Black; E - [facility] Trash Bin Stable for 28 days at room temperatur e. Expires in days from ____Date Insulin, 2015-06 No Notes: Memoria Aspart, 2-22 Roll in l Human 12:55: palms of [place] 00 hands gently; Do not shake vigorously . (Same as: NovoLOG) "single patient use only" WASTE: F/P - Black; E - [facility] Trash Bin Stable for 28 days at room temperatur e. Expires in days from ____Date Insulin, 2015-06 No Notes: Memoria Aspart, 2-22 Roll in l Human 12:55: palms of [place] 00 hands gently; Do not shake vigorously . (Same as: NovoLOG) "single patient use only" WASTE: F/P - Black; E - [facility] Trash Bin Stable for 28 days at room temperatur e. Expires in days from ____Date Insulin, 2015-06 No Notes: Memoria Aspart, 2-22 Roll in l Human 12:55: palms of [place] 00 hands gently; Do not shake vigorously . (Same as: NovoLOG) "single patient use only" WASTE: F/P - Black; E - [facility] Trash Bin Stable for 28 days at room temperatur e. Expires in days from ____Date Insulin, 2015-06 No Notes: Memoria Aspart, 2-22 Roll in l Human 12:55: palms of Vin 00 hands gently; Do not shake vigorously . (Same as: NovoLOG) "single patient use only" WASTE: F/P - Black; E - [facility] Trash Bin Stable for 28 days at room temperatur e. Expires in days from ____Date Insulin, 2015-06 No Notes: Memoria Aspart, 2-22 Roll in l Human 12:55: palms of [place] 00 hands gently; Do not shake vigorously . (Same as: NovoLOG) "single patient use only" WASTE: F/P - Black; E - [facility] Trash Bin Stable for 28 days at room temperatur e. Expires in days from ____Date heparin 2015-06 No Notes: Memoria sodium, 2-22 porcine l porcine 06:00: heparin [place] 2500 UNT/ML 00 Injectable Solution heparin 2015-06 No Notes: Memoria sodium, 2-22 porcine l porcine 06:00: heparin [place] 2500 UNT/ML 00 Injectable Solution heparin 2015-06 No Notes: Memoria sodium, 2-22 porcine l porcine 06:00: heparin [place] 2500 UNT/ML 00 Injectable Solution heparin 2015-06 No Notes: Memoria sodium, 2-22 porcine l porcine 06:00: heparin [place] 2500 UNT/ML 00 Injectable Solution heparin 2015-06 No Notes: Memoria sodium, 2-22 porcine l porcine 06:00: heparin [place] 2500 UNT/ML 00 Injectable Solution heparin 2015-06 No Notes: Memoria sodium, 2-22 porcine l porcine 06:00: heparin [place] 2500 UNT/ML 00 Injectable Solution Albuterol 2015-06 No Notes: Memori a 0.833 MG/ML -22 (Same as: l 03:00: Duoneb) Vin Ipratropium 00 [place] 0.167 MG/ML Inhalant Solution [DuoNeb] gabapentin 2015-06 No 300 mg, Mendoza janice 300 MG Oral 08-12 Route: PO, l Capsule 03:00: Drug form: Herm naeem 00 CAP, Q12H, Dosing Weight 86.364, kg, (CrCl 30 - 59 ml/min), Start date: 06/10/16 21:00:00 FRONT DESK ASSISTANT, Duration: 30 day, Stop date: 07/10/16 9:00:00 FRONT DESK ASSISTANT divalproex 2015-06 No Notes: Memor ia sodium 2-22 (Same as: l 03:00: Depakote Vin 00 ER) Once daily dosing; indicated for migraines. Divalproe x sodium extended-r elease tab. Do not chew or crush. 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 Divalproe x sodium extended-r elease tab. Do not chew or crush. 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 Divalproe x sodium extended-r elease tab. Do not chew or crush. "Do Not Crush" Losartan 2015-06 No Notes: Memoria 2-22 (Same as: l 03:00: Cozaar) Vin 00 Albuterol 2015-06 No Notes: Memori a 0.833 MG/ML 2-22 (Same as: l / 03:00: Duoneb) Ipratropium 00 [place] 0.167 MG/ML Inhalant Solution [DuoNeb] gabapentin 2015-06 No 300 mg, Mendoza janice 300 MG Oral 2-22 Route: PO, l Capsule 03:00: Drug form: Herm aneem 00 CAP, Q12H, Dosing Weight 86.364, kg, (CrCl 30 - 59 ml/min), Start date: 06/10/16 21:00:00 FRONT DESK ASSISTANT, Duration: 30 day, Stop date: 07/10/16 9:00:00 FRONT DESK ASSISTANT divalproex 2015-06 No Notes: [facility] ia sodium 2-22 (Same as: l 03:00: Depakote [place] 00 ER) Once daily dosing; indicated for migraines. Divalproe x sodium extended-r elease tab. Do not chew or crush. "Do Not Crush" Losartan 2015-06 No Notes: Memoria 2-22 (Same as: l 03:00: Cozaar) [place] 00 Albuterol 2015-06 No Notes: Memori a 0.833 MG/ML 2-22 (Same as: l / 03:00: Duoneb) Ipratropium 00 [place] 0.167 MG/ML Inhalant Solution [DuoNeb] gabapentin 2015-06 No 300 mg, Mendoza janice 300 MG Oral 2-22 Route: PO, l Capsule 03:00: Drug form: Herm naeem 00 CAP, Q12H, Dosing Weight 86.364, kg, (CrCl 30 - 59 ml/min), Start date: 06/10/16 21:00:00 FRONT DESK ASSISTANT, Duration: 30 day, Stop date: 07/10/16 9:00:00 FRONT DESK ASSISTANT divalproex 2015-06 No Notes: [facility] ia sodium 2-22 (Same as: l 03:00: Depakote [place] 00 ER) Once daily dosing; indicated for migraines. Divalproe x sodium extended-r elease tab. Do not chew or crush. "Do Not Crush" Losartan 2015-06 No Notes: Memoria 2-22 (Same as: l 03:00: Cozaar) Vin 00 Albuterol 2015-06 No Notes: Memori a 0.833 MG/ML 2-22 (Same as: l / 03:00: Duoneb) Ipratropium 00 [place] 0.167 MG/ML Inhalant Solution [DuoNeb] gabapentin 2015-06 No 300 mg, Mendoza janice 300 MG Oral 2-22 Route: PO, l Capsule 03:00: Drug form: Herm naeem 00 CAP, Q12H, Dosing Weight 86.364, kg, (CrCl 30 - 59 ml/min), Start date: 06/10/16 21:00:00 FRONT DESK ASSISTANT, Duration: 30 day, Stop date: 07/10/16 9:00:00 FRONT DESK ASSISTANT divalproex 2015-06 No Notes: [facility] sodium 2-22 (Same as: l 03:00: Depakote [place] 00 ER) Once daily dosing; indicated for migraines. Divalproe x sodium extended-r elease tab. Do not chew or crush. "Do Not Crush" Losartan 2015-06 No Notes: [facility]oria 2-22 (Same as: l 03:00: Cozaar) Vin 00 Insulin, 2015-06 No Notes: [facility] Aspart, 2-22 Roll in l Human 00:50: palms of [place] 00 hands gently; Do not shake vigorously . (Same as: NovoLOG) "single patient use only" WASTE: F/P - Black; E - Municipal Trash Bin Stable for 28 days at room temperatur e. Expires in days from ____Date Dextrose 2015-06 No 12.5 gm, [facility] ia 50% Syringe 2-22 25 mL, l 00:50: Route: [place] 00 IVP, Drug Form: INJ, Dosing Weight 86.364, kg, PRN, PRN Blood Glucose Results, Start date: 06/10/16 18:50:00 FRONT DESK ASSISTANT, Duration: 30 day, Stop date: 07/10/16 18:49:00 FRONT DESK ASSISTANT Glucagon 2015-06 No 1 mg, Memoria 2-22 Route: IM, l 00:50: Drug form: Vin 00 PDR/INJ, PRN, Dosing Weight 86.364, kg, PRN Blood Glucose Results, Start date: 06/10/16 18:50:00 FRONT DESK ASSISTANT, Duration: 30 day, Stop date: 07/10/16 18:49:00 FRONT DESK ASSISTANT Insulin, 2015-06 No Notes: [facility] Aspart, 2-22 [...] Syringe 2-22 25 mL, l 00:50: Route: [place] 00 IVP, Drug Form: INJ, Dosing Weight 86.364, kg, PRN, PRN Blood Glucose Results, Start date: 06/10/16 18:50:00 FRONT DESK ASSISTANT, Duration: 30 day, Stop date: 07/10/16 18:49:00 FRONT DESK ASSISTANT Glucagon 2015-06 No 1 mg, Memoria 2-22 Route: IM, l 00:50: Drug form: Vin 00 PDR/INJ, PRN, Dosing Weight 86.364, kg, PRN Blood Glucose Results, Start date: 06/10/16 18:50:00 FRONT DESK ASSISTANT, Duration: 30 day, Stop date: 07/10/16 18:49:00 FRONT DESK ASSISTANT Insulin, 2015-06 No Notes: [facility] Aspart, 2-22 [...] Blood Glucose Results, Start date: 06/10/16 18:50:00 FRONT DESK ASSISTANT, Duration: 30 day, Stop date: 07/10/16 18:49:00 FRONT DESK ASSISTANT Glucagon 2015-06 No 1 mg, Memoria 2-22 Route: IM, l 00:50: Drug form: [place] 00 PDR/INJ, PRN, Dosing Weight 86.364, kg, PRN Blood Glucose Results, Start date: 06/10/16 18:50:00 FRONT DESK ASSISTANT, Duration: 30 day, Stop date: 07/10/16 18:49:00 FRONT DESK ASSISTANT Insulin, 2015-06 No Notes: [facility] Aspart, 2-22 [...] Blood Glucose Results, Start date: 06/10/16 18:50:00 FRONT DESK ASSISTANT, Duration: 30 day, Stop date: 07/10/16 18:49:00 FRONT DESK ASSISTANT Glucagon 2015-06 No 1 mg, Memoria 2-22 Route: IM, l 00:50: Drug form: Vin 00 PDR/INJ, PRN, Dosing Weight 86.364, kg, PRN Blood Glucose Results, Start date: 06/10/16 18:50:00 FRONT DESK ASSISTANT, Duration: 30 day, Stop date: 07/10/16 18:49:00 FRONT DESK ASSISTANT Insulin, 2015-06 No Notes: [facility] Aspart, 2-22 [...] Syringe 2-22 25 mL, l 00:50: Route: [place] 00 IVP, Drug Form: INJ, Dosing Weight 86.364, kg, PRN, PRN Blood Glucose Results, Start date: 06/10/16 18:50:00 FRONT DESK ASSISTANT, Duration: 30 day, Stop date: 07/10/16 18:49:00 FRONT DESK ASSISTANT Glucagon 2015-06 No 1 mg, Memoria 2-22 Route: IM, l 00:50: Drug form: Vin 00 PDR/INJ, PRN, Dosing Weight 86.364, kg, PRN Blood Glucose Results, Start date: 06/10/16 18:50:00 FRONT DESK ASSISTANT, Duration: 30 day, Stop date: 07/10/16 18:49:00 FRONT DESK ASSISTANT Insulin, 2015-06 No Notes: [facility] Aspart, 2-22 [...] Blood Glucose Results, Start date: 06/10/16 18:50:00 FRONT DESK ASSISTANT, Duration: 30 day, Stop date: 07/10/16 18:49:00 FRONT DESK ASSISTANT Glucagon 2015-06 No 1 mg, Memoria 2-22 Route: IM, l 00:50: Drug form: [place] 00 PDR/INJ, PRN, Dosing Weight 86.364, kg, PRN Blood Glucose Results, Start date: 06/10/16 18:50:00 FRONT DESK ASSISTANT, Duration: 30 day, Stop date: 07/10/16 18:49:00 FRONT DESK ASSISTANT Hydralazine 2015-06 No Notes: Mendoza janice 2-22 (Same as: l 00:36: Apresoline [place] 00 ) Push over 5 minutes Hydralazine 2015-06 No Notes: Mendoza janice 2-22 (Same as: l 00:36: Apresoline Vin 00 ) Push over 5 minutes Hydralazine 2015-06 No Notes: Mendoza janice 2-22 (Same as: l 00:36: Apresoline [place] 00 ) Push over 5 minutes Hydralazine 2015-06 No Notes: Mendoza janice 2-22 (Same as: l 00:36: Apresoline Vin 00 ) Push over 5 minutes Hydralazine 2015-06 No Notes: Mendoza janice 2-22 (Same as: l 00:36: Apresoline [place] 00 ) Push over 5 minutes Hydralazine 2015-06 No Notes: Mendoza janice 2-22 (Same as: l 00:36: Apresoline [place] 00 ) Push over 5 minutes Hydralazine 2015-06 No Notes: Mendoza janice 2-22 (Same as: l 00:34: Apresoline Vin 00 ) May interfere w/enteral feedings Take With Food Hydralazine 2015-06 No Notes: Menodza janice 2-22 (Same as: l 00:34: Apresoline Vin 00 ) May interfere w/enteral feedings Take With Food Hydralazine 2015-06 No Notes: Mendoza janice 2-22 (Same as: l 00:34: Apresoline Vin 00 ) May interfere w/enteral feedings Take With Food Hydralazine 2015-06 No Notes: Mendoza janice 2-22 (Same as: l 00:34: Apresoline [place] 00 ) May interfere w/enteral feedings Take With Food Hydralazine 2015-06 No Notes: Mendoza janice 2-22 (Same as: l 00:34: Apresoline [place] 00 ) May interfere w/enteral feedings Take With Food Hydralazine 2015-06 No Notes: Mendoza janice 2-22 (Same as: l 00:34: Apresoline [place] 00 ) May interfere w/enteral feedings Take With Food metoprolol 2015-06 No Notes: [facility]or ia extended 2-22 (Same as: l release 00:08: Toprol XL) Herm naeem 00 May split tab, but do not crush. metoprolol 2015-06 No Notes: [facility] ia extended 2-22 (Same as: l release 00:08: Toprol XL) Herm naeem 00 May split tab, but do not crush. metoprolol 2015-06 No Notes: [facility]or ia extended 2-22 (Same as: l release 00:08: Toprol XL) Herm naeem 00 May split tab, but do not crush. metoprolol 2015-06 No Notes: [facility] ia extended 2-22 (Same as: l release 00:08: Toprol XL) Herm naeem 00 May split tab, but do not crush. metoprolol 2015-06 No Notes: [facility] ia extended 2-22 (Same as: l release 00:08: Toprol XL) Herm naeem 00 May split tab, but do not crush. metoprolol 2015-06 No Notes: [facility]or ia extended 2-22 (Same as: l release 00:08: Toprol XL) Herm naeem 00 May split tab, but do not crush. Hydralazine 2015-06 No 10 mg, Mendoza janice 2-22 Route: IV, l 00:06: ONCE, Vin 00 Dosing Weight 86.364, kg, Start date: 06/10/16 18:06:00 FRONT DESK ASSISTANT, Stop date: 06/10/16 18:06:00 FRONT DESK ASSISTANT Hydralazine 2015-06 No 10 mg, Mendoza janice 2-22 Route: IV, l 00:06: ONCE, Dosing Weight 86.364, kg, Start date: 06/10/16 18:06:00 FRONT DESK ASSISTANT, Stop date: 06/10/16 18:06:00 FRONT DESK ASSISTANT Hydralazine 2015- No 10 mg, Mendoza janice 2-22 Route: IV, l 00:06: ONCE, Dosing Weight 86.364, kg, Start date: 06/10/16 18:06:00 FRONT DESK ASSISTANT, Stop date: 06/10/16 18:06:00 FRONT DESK ASSISTANT Hydralazine 2015-06 No 10 mg, Mendoza janice 2-22 Route: IV, l 00:06: ONCE, Dosing Weight 86.364, kg, Start date: 06/10/16 18:06:00 FRONT DESK ASSISTANT, Stop date: 06/10/16 18:06:00 FRONT DESK ASSISTANT Hydralazine 2015-06 No 10 mg, Mendoza janice 2-22 Route: IV, l 00:06: ONCE, Dosing Weight 86.364, kg, Start date: 06/10/16 18:06:00 FRONT DESK ASSISTANT, Stop date: 06/10/16 18:06:00 FRONT DESK ASSISTANT Hydralazine 2015-06 No 10 mg, Mendoza janice 2-22 Route: IV, l 00:06: ONCE, Dosing Weight 86.364, kg, Start date: 06/10/16 18:06:00 FRONT DESK ASSISTANT, Stop date: 06/10/16 18:06:00 FRONT DESK ASSISTANT hydrOXYzine 2015-06 No Notes: Mendoza janice pamoate 2-21 (Same as: l 23:00: Vistaril) hydrOXYzine 2015-06 No Notes: Mendoza janice pamoate 2-21 (Same as: l 23:00: Vistaril) hydrOXYzine 2015-06 No Notes: Mendoza janice pamoate 2-21 (Same as: l 23:00: Vistaril) hydrOXYzine 2015-06 No Notes: Mendoza janice pamoate 2-21 (Same as: l 23:00: Vistaril) hydrOXYzine 2015-06 No Notes: Mendoza janice pamoate 2-21 (Same as: l 23:00: Vistaril) hydrOXYzine 2015-06 No Notes: Mendoza janice pamoate -21 (Same as: l 23:00: Vistaril) Furosemide 2015-06 No 60 mg, Memor ia 2-21 Route: l 22:32: IVP, Drug [place] 00 form: INJ, ONCE, Dosing Weight 86.364, kg, Start date: 06/10/16 16:32:00 FRONT DESK ASSISTANT, Stop date: 06/10/16 16:32:00 FRONT DESK ASSISTANT Furosemide 2015-06 No 60 mg, Memor ia 2-21 Route: l 22:32: IVP, Drug [place] 00 form: INJ, ONCE, Dosing Weight 86.364, kg, Start date: 06/10/16 16:32:00 FRONT DESK ASSISTANT, Stop date: 06/10/16 16:32:00 FRONT DESK ASSISTANT Furosemide 2015-06 No 60 mg, Memor ia 2-21 Route: l 22:32: IVP, Drug Vin 00 form: INJ, ONCE, Dosing Weight 86.364, kg, Start date: 06/10/16 16:32:00 FRONT DESK ASSISTANT, Stop date: 06/10/16 16:32:00 FRONT DESK ASSISTANT Furosemide 2015-06 No 60 mg, Memor ia 2-21 Route: l 22:32: IVP, Drug [place] 00 form: INJ, ONCE, Dosing Weight 86.364, kg, Start date: 06/10/16 16:32:00 FRONT DESK ASSISTANT, Stop date: 06/10/16 16:32:00 FRONT DESK ASSISTANT Furosemide 2015-06 No 60 mg, Memor ia 2-21 Route: l 22:32: IVP, Drug [place] 00 form: INJ, ONCE, Dosing Weight 86.364, kg, Start date: 06/10/16 16:32:00 FRONT DESK ASSISTANT, Stop date: 06/10/16 16:32:00 FRONT DESK ASSISTANT Furosemide 2015-06 No 60 mg, Memor ia 2-21 Route: l 22:32: IVP, Drug [place] 00 form: INJ, ONCE, Dosing Weight 86.364, kg, Start date: 06/10/16 16:32:00 FRONT DESK ASSISTANT, Stop date: 06/10/16 16:32:00 FRONT DESK ASSISTANT Lasix 2015-06 No Notes: Memoria 2-21 (Same as: l 17:22: Lasix) MEDICATION WASTE Product Size: 40 mg Product Wasted: _0__ mg Albuterol 2015-06 No Notes: Memori a 0.833 MG/ML - (Same as: :22: Duoneb) Vin Ipratropium 00 [place] 0.167 MG/ML Inhalant Solution [DuoNeb] Lasix 2015-06 No Notes: Memoria 08-11 (Same as: l 17:22: Lasix) [place] 00 MEDICATION WASTE Product Size: 40 mg Product Wasted: _0__ mg Albuterol 2015-06 No Notes: Memori a 0.833 MG/ML - (Same as: :22: Duoneb) Vin Ipratropium 00 [place] 0.167 MG/ML Inhalant Solution [DuoNeb] Lasix 2015-06 No Notes: Memoria 08-11 (Same as: l :22: Lasix) Vin 00 MEDICATION WASTE Product Size: 40 mg Product Wasted: _0__ mg Albuterol 2015-06 No Notes: Memori a 0.833 MG/ML - (Same as: :: Duoneb) Vin Ipratropium 00 [place] 0.167 MG/ML Inhalant Solution [DuoNeb] Lasix 2015-06 No Notes: Memoria 08-11 (Same as: l 17:: Lasix) Vin 00 MEDICATION WASTE Product Size: 40 mg Product Wasted: _0__ mg Albuterol 2015-06 No Notes: Memori a 0.833 MG/ML - (Same as: :: Duoneb) [place] Ipratropium 00 [place] 0.167 MG/ML Inhalant Solution [DuoNeb] Lasix 2015-06 No Notes: Memoria 08-11 (Same as: l 17:22: Lasix) Vin 00 MEDICATION WASTE Product Size: 40 mg Product Wasted: _0__ mg Albuterol 2015-06 No Notes: Memori a 0.833 MG/ML - (Same as: :22: Duoneb) [place] Ipratropium 00 [place] 0.167 MG/ML Inhalant Solution [DuoNeb] Lasix 2015-06 No Notes: Memoria 08-11 (Same as: l 17:22: Lasix) Vin 00 MEDICATION WASTE Product Size: 40 mg Product Wasted: _0__ mg Albuterol 2015-06 No Notes: Memori a 0.833 MG/ML 08-11 (Same as: l / 17:22: Duoneb) Vin Ipratropium 00 [place] 0.167 MG/ML Inhalant Solution [DuoNeb] Promethazin Yes 25 mg = 1 M emoria e 1-06 supp, [place], l Hydrochlori 14:45: Q6H, Jake n de 25 MG 00 Nausea & Rectal Vomiting, Suppository # 9 supp, [Phenergan] 0 Refill(s) Promethazin Yes 25 mg = 1 M emoria e 1-06 supp, TX, l Hydrochlori 14:45: Q6H, Jake n de 25 MG 00 Nausea & Rectal Vomiting, Suppository # 9 supp, [Phenergan] 0 Refill(s) Promethazin Yes 25 mg = 1 M emoria e 1-06 supp, TX, l Hydrochlori 14:45: Q6H, Jake n de 25 MG 00 Nausea & Rectal Vomiting, Suppository # 9 supp, [Phenergan] 0 Refill(s) Promethazin Yes 25 mg = 1 M emoria e 1-06 supp, TX, l Hydrochlori 14:45: Q6H, Jake n de 25 MG 00 Nausea & Rectal Vomiting, Suppository # 9 supp, [Phenergan] 0 Refill(s) Promethazin Yes 25 mg = 1 M emoria e 1-06 supp, TX, l Hydrochlori 14:45: Q6H, Jake n de 25 MG 00 Nausea & Rectal Vomiting, Suppository # 9 supp, [Phenergan] 0 Refill(s) Promethazin Yes 25 mg = 1 M emoria e 1-06 supp, [place], l Hydrochlori 14:45: Q6H, Jake n de 25 MG 00 Nausea & Rectal Vomiting, Suppository # 9 supp, [Phenergan] 0 Refill(s) Ondansetron 2015-0 Yes Special [facility] 4 MG 1-06 Instructio l Disintegrat 14:25: ns: Jake n ing Tablet 00 Dissolve [Zofran] tab under tongue Ondansetron Yes [facility] 4 MG -06 Instructio l Disintegrat 14:25: ns: Jake n ing Tablet 00 Dissolve [Zofran] tab under tongue Ondansetron Yes [facility] 4 MG -06 Instructio l Disintegrat 14:25: ns: Jake n ing Tablet 00 Dissolve [Zofran] tab under tongue Ondansetron Yes [facility] 4 MG -06 Instructio l Disintegrat 14:25: ns: Jake n ing Tablet 00 Dissolve [Zofran] tab under tongue Ondansetron Yes [facility] 4 MG -06 Instructio l Disintegrat 14:25: ns: Jake n ing Tablet 00 Dissolve [Zofran] tab under tongue Ondansetron Yes [facility] 4 MG -06 Instructio l Disintegrat 14:25: ns: Jake n [...] 0 Nidia nn Coated 00 Refill(s) Tablet Metoclopram Yes 10 mg = 1 M emoria gadiel 10 MG 1-06 tab, PO, l Oral Tablet 14:24: QID, # 40 H ermann [Reglan] 00 tab, 0 Refill(s) Erythromyci Yes = 1 tab, Me moria n 500 MG 1-06 PO, Q6H, # l Enteric 14:24: 40 tab, 0 Nidia nn Coated 00 Refill(s) Tablet Metoclopram Yes 10 mg = 1 M emoria gadiel 10 MG 1-06 tab, PO, l Oral Tablet 14:24: QID, # 40 H ermann [Reglan] 00 tab, 0 Refill(s) Erythromyci Yes = 1 tab, Me moria n 500 MG 1-06 PO, Q6H, # l Enteric 14:24: 40 tab, 0 Nidia nn Coated 00 Refill(s) Tablet Metoclopram Yes 10 mg = 1 M emoria gadiel 10 MG 1-06 tab, PO, l Oral Tablet 14:24: QID, # 40 H ermann [Reglan] 00 tab, 0 Refill(s) Erythromyci Yes = 1 tab, Me moria n 500 MG 1-06 PO, Q6H, # l Enteric 14:24: 40 tab, 0 Nidia nn Coated 00 Refill(s) Tablet Metoclopram Yes 10 mg = 1 M emoria gadiel 10 MG 1-06 tab, PO, l Oral Tablet 14:24: QID, # 40 H ermann [Reglan] 00 tab, 0 Refill(s) Erythromyci Yes = 1 tab, Me moria n 500 MG 1-06 PO, Q6H, # l Enteric 14:24: 40 tab, 0 Nidia nn Coated 00 Refill(s) Tablet Metoclopram Yes 10 mg = 1 M [...] ne 06-26 Same as: l 11:48: Dilaudid Vin 00 Hydromorpho No Notes: Mendoza janice ne 06-26 Same as: l 11:48: Dilaudid Vin 00 Hydromorpho No Notes: Mendoza janice ne 06-26 Same as: l 11:48: Dilaudid [place] 00 Hydromorpho No Notes: Mendoza janice ne 06-26 Same as: l 11:48: Dilaudid [place] 00 Hydromorpho No Notes: Mendoza janice ne 06-26 Same as: l 11:48: Dilaudid Hydromorpho 0 No Notes: Mendoza janice ne 1-06 Same as: l 11:48: Dilaudid hydrOXYzine 2014-0 Yes 0 Memori a pamoate 1-06 Refill(s) l 11:18: Dicyclomine 2014-0 Yes 0 Memori a 1-06 Refill(s) l 11:18: hydrOXYzine 0 Yes 0 Memori a pamoate 1-06 Refill(s) l 11:18: Dicyclomine 2014-0 Yes 0 Memori a 1-06 Refill(s) l 11:18: hydrOXYzine 2014-0 Yes 0 Memori a pamoate 1-06 Refill(s) l 11:18: Dicyclomine 2014-0 Yes 0 Memori a 1-06 Refill(s) l 11:18: hydrOXYzine 2014-0 Yes 0 Memori a pamoate 1-06 Refill(s) l 11:18: Dicyclomine 2014-0 Yes 0 Memori a 1-06 Refill(s) l 11:18: hydrOXYzine 2014-0 Yes 0 Memori a pamoate 1-06 Refill(s) l 11:18: Dicyclomine 2014-0 Yes 0 Memori a 1-06 Refill(s) l 11:18: hydrOXYzine 0 Yes 0 Memori a pamoate 1-06 Refill(s) l 11:18: Dicyclomine 2014-0 Yes 0 Memori a 1-06 Refill(s) l 11:18: Ondansetron 2015-0 Yes 0 Memori a 1-06 Refill(s) l 11:17: Benztropine 2015-0 Yes 0 Memori a 1-06 Refill(s) l 11:17: Clonidine 2015-0 Yes 0 Memoria 1-06 Refill(s) l 11:17: Zoloft 2014-0 Yes 0 Memoria 1-06 Refill(s) l 11:17: Metoclopram 2014-0 Yes 0 Memori a gadiel 1-06 Refill(s) l 11:17: Ondansetron 2015-0 Yes 0 Memori a 1-06 Refill(s) l 11:17: Benztropine 2015-0 Yes 0 Memori a 1-06 Refill(s) l 11:17: Clonidine 2015-0 Yes 0 Memoria 1-06 Refill(s) l 11:17: Zoloft 2015-0 Yes 0 Memoria 1-06 Refill(s) l 11:17: Metoclopram 2015-0 Yes 0 Memori a gadiel 1-06 Refill(s) l 11:17: Ondansetron 2015-0 Yes 0 Memori a 1-06 Refill(s) l 11:17: Benztropine 2015-0 Yes 0 Memori a 1-06 Refill(s) l 11:17: Clonidine 2015-0 Yes 0 Memoria 1-06 Refill(s) l 11:17: Zoloft 2014-0 Yes 0 Memoria 1-06 Refill(s) l 11:17: Metoclopram 2015-0 Yes 0 Memori a gadiel 1-06 Refill(s) l 11:17: Ondansetron 2015-0 Yes 0 Memori a 1-06 Refill(s) l 11:17: Benztropine 2015-0 Yes 0 Memori a 1-06 Refill(s) l 11:17: Clonidine 2015-0 Yes 0 Memoria 1-06 Refill(s) l 11:17: Zoloft 2015-0 Yes 0 Memoria 1-06 Refill(s) l 11:17: Metoclopram 2015-0 Yes 0 Memori a gadiel 1-06 Refill(s) l 11:17: Ondansetron 2015-0 Yes 0 Memori a 1-06 Refill(s) l 11:17: Benztropine 2015-0 Yes 0 Memori a 1-06 Refill(s) l 11:17: Clonidine 2015-0 Yes 0 Memoria 1-06 Refill(s) l 11:17: Zoloft 2015-0 Yes 0 Memoria 1-06 Refill(s) l 11:17: Metoclopram 2015-0 Yes 0 Memori a gadiel 1-06 Refill(s) l 11:17: Ondansetron 2015-0 Yes 0 Memori a 1-06 Refill(s) l 11:17: Benztropine 2015-0 Yes 0 Memori a 1-06 Refill(s) l 11:17: Clonidine 2015-0 Yes 0 Memoria 1-06 Refill(s) l 11:17: Zoloft 2015-0 Yes 0 Memoria 1-06 Refill(s) l 11:17: Metoclopram 2015-0 Yes 0 Memori a gadiel 1-06 Refill(s) l 11:17: Erythromyci 2014-0 Yes 0 Memori a n 1-06 Refill(s) l 11:16: Tramadol 2015-0 Yes 0 Memoria 1-06 Refill(s) l 11:16: Depakote 2015-0 Yes 0 Memoria 1-06 Refill(s) l 11:16: quetiapine 2015-0 Yes 0 Memoria 1-06 Refill(s) l 11:16: Erythromyci 2015-0 Yes 0 Memori a n 1-06 Refill(s) l 11:16: Tramadol 2015-0 Yes 0 Memoria 1-06 Refill(s) l 11:16: Depakote 2015-0 Yes 0 Memoria 1-06 Refill(s) l 11:16: quetiapine 2015-0 Yes 0 Memoria 1-06 Refill(s) l 11:16: Erythromyci 2015-0 Yes 0 Memori a n 1-06 Refill(s) l 11:16: Tramadol 2015-0 Yes 0 Memoria 1-06 Refill(s) l 11:16: Depakote 2015-0 Yes 0 Memoria 1-06 Refill(s) l 11:16: quetiapine 2015-0 Yes 0 Memoria 1-06 Refill(s) l 11:16: Erythromyci 0 Yes 0 Memori a n 1-06 Refill(s) l 11:16: Tramadol 2014-0 Yes 0 Memoria 1-06 Refill(s) l 11:16: Depakote 2014-0 Yes 0 Memoria 1-06 Refill(s) l 11:16: quetiapine 2014-0 Yes 0 Memoria 1-06 Refill(s) l 11:16: Erythromyci 0 Yes 0 Memori a n 1-06 Refill(s) l 11:16: Tramadol 2014-0 Yes 0 Memoria 1-06 Refill(s) l 11:16: Depakote 2014-0 Yes 0 Memoria 1-06 Refill(s) l 11:16: quetiapine 2014-0 Yes 0 Memoria 1-06 Refill(s) l 11:16: Erythromyci 0 Yes 0 Memori a n 1-06 Refill(s) l 11:16: Tramadol 2014-0 Yes 0 Memoria 1-06 Refill(s) l 11:16: Depakote 0 Yes 0 Memoria 1-06 Refill(s) l 11:16: quetiapine 0 Yes 0 Memoria 1-06 Refill(s) l 11:16: Sodium 0 No 2,000 mL, Memori a Chloride 1-06 1,000 l 0.154 10:56: ml/hr, MEQ/ML 00 Infuse Injectable Over: 2 Solution hr, Route: IV, 2,000, Drug form: INJ, ONCE, Priority: STAT, Dosing Weight 75 kg, Start date: 06/26/14 4:56:00, Duration: 1 doses or times, Stop date: 06/26/14 4:56:00 Lorazepam 0 No Notes: Memori a 1-06 (Same as: l 10:56: Ativan) Sodium 0 No 2,000 mL, Memori a Chloride 1-06 1,000 l 0.154 10:56: ml/hr, MEQ/ML 00 Infuse Injectable Over: 2 Solution hr, Route: IV, 2,000, Drug form: INJ, ONCE, Priority: STAT, Dosing Weight 75 kg, Start date: 06/26/14 4:56:00, Duration: 1 doses or times, Stop date: 06/26/14 4:56:00 Lorazepam 2014-0 No Notes: Memori a 1-06 (Same as: l 10:56: Ativan) Sodium 0 No 2,000 mL, Memori a Chloride 1-06 1,000 l 0.154 10:56: ml/hr, [place] MEQ/ML 00 Infuse Injectable Over: 2 Solution hr, Route: IV, 2,000, Drug form: INJ, ONCE, Priority: STAT, Dosing Weight 75 kg, Start date: 06/26/14 4:56:00, Duration: 1 doses or times, Stop date: 06/26/14 4:56:00 Lorazepam 2014-0 No Notes: Memori a 1-06 (Same as: l 10:56: Ativan) Sodium No 2,000 mL, Memori a Chloride 1-06 1,000 l 0.154 10:56: ml/hr, [place] MEQ/ML 00 Infuse Injectable Over: 2 Solution hr, Route: IV, 2,000, Drug form: INJ, ONCE, Priority: STAT, Dosing Weight 75 kg, Start date: 06/26/14 4:56:00, Duration: 1 doses or times, Stop date: 06/26/14 4:56:00 Lorazepam 2014-0 No Notes: Memori a 1-06 (Same as: l 10:56: Ativan) Sodium 0 No 2,000 mL, Memori a Chloride 1-06 1,000 l 0.154 10:56: ml/hr, [place] MEQ/ML 00 Infuse Injectable Over: 2 Solution hr, Route: IV, 2,000, Drug form: INJ, ONCE, Priority: STAT, Dosing Weight 75 kg, Start date: 06/26/14 4:56:00, Duration: 1 doses or times, Stop date: 06/26/14 4:56:00 Lorazepam 2014-0 No Notes: Memori a 1-06 (Same as: l 10:56: Ativan) Sodium 0 No 2,000 mL, Memori a Chloride 1-06 1,000 l 0.154 10:56: ml/hr, [place] MEQ/ML 00 Infuse Injectable Over: 2 Solution hr, Route: IV, 2,000, Drug form: INJ, ONCE, Priority: STAT, Dosing Weight 75 kg, Start date: 06/26/14 4:56:00, Duration: 1 doses or times, Stop date: 06/26/14 4:56:00 Lorazepam No Notes: Memori a 06-26 (Same as: l 10:56: Ativan) Metoclopram No Notes: Mendoza janice gadiel 06-26 (Same as: l 10:55: Reglan) Metoclopram No Notes: Mendoza janice gadiel 06-26 (Same as: l 10:55: Reglan) Metoclopram No Notes: Mendoza janice gadiel 06-26 (Same as: l 10:55: Reglan) Metoclopram No Notes: Mendoza janice gadiel 06-26 (Same as: l 10:55: Reglan) Metoclopram No Notes: Mendoza janice gadiel 06-26 (Same as: l 10:55: Reglan) Metoclopram No Notes: Mendoza janice gadiel 06-26 (Same as: l 10:55: Reglan) Zofran ODT 2012-06 Yes Matthew Gary 4 mg, 1 Memoria 4 mg oral 0-26 Marry tab, PO, l tablet, 05:49: BID, PRN, Nidia nn disintegrat 53 Dissolve ing tab under tongue, 10 tab, Nausea and Vomiting, Substituti on AllowedDis solve tab under tongue Zofran ODT 2012-06 Yes Matthew Gary 4 mg, 1 Memoria 4 mg oral 0-26 Marry tab, PO, l tablet, 05:49: BID, PRN, Nidia nn disintegrat 53 Dissolve ing tab under tongue, 10 tab, Nausea and Vomiting, Substituti on AllowedDis solve tab under tongue Zofran ODT 2012-06 Yes Matthew Gary 4 mg, 1 Memoria 4 mg oral 0-26 Marry tab, PO, l tablet, 05:49: BID, PRN, Nidia nn disintegrat 53 Dissolve ing tab under tongue, 10 tab, Nausea and Vomiting, Substituti on AllowedDis solve tab under tongue Zofran ODT 2012-06 Yes Matthew Gary 4 mg, 1 Memoria 4 mg oral 0-26 Marry tab, PO, l tablet, 05:49: BID, PRN, Nidia nn disintegrat 53 Dissolve ing tab under tongue, 10 tab, Nausea and Vomiting, Substituti on AllowedDis solve tab under tongue Zofran ODT 2012-06 Yes Matthew Gary 4 mg, 1 Memoria 4 mg oral 0-26 Marry tab, PO, l tablet, 05:49: BID, PRN, Nidia nn disintegrat 53 Dissolve ing tab under tongue, 10 tab, Nausea and Vomiting, Substituti on AllowedDis solve tab under tongue Zofran ODT 2012-06 Yes Matthew Gary 4 [...] Duration: 30 day, Stop date: 05/14/13 23:09:00 Saline 2012-06 No Matthew Gary 5 mL, [...] Rate: 125 l 0.9% IV 04:10: ml/hr, [place] 1,000 mL 00 Infuse over: 8 hr, Route: IV, Dosing Weight 63.636 kg, Total Volume: 1,000, Start date: 04/14/13 23:10:00, Duration: 30 day, Stop date: 05/14/13 23:09:00 Saline 2012-06 No Matthew Gary 5 mL, [...] Duration: 30 day, Stop date: 05/14/13 23:09:00 Saline 2012-06 No Matthew Gary 5 mL, [...] Duration: 30 day, Stop date: 05/14/13 23:09:00 Saline 2012-06 No Matthew Gary 5 mL, [...] Duration: 30 day, Stop date: 05/14/13 23:09:00 Saline 2012-06 No Matthew Gary 5 mL, [...] Rate: 125 l 0.9% IV 04:10: ml/hr, [place] 1,000 mL 00 Infuse over: 8 hr, Route: IV, Dosing Weight 63.636 kg, Total Volume: 1,000, Start date: 04/14/13 23:10:00, Duration: 30 day, Stop date: 05/14/13 23:09:00 morphine 2011- No Hung Murillo 5 mg, Me moria Sulfate 9-25 Marx Route: l 01:15: IVP, ONCE, Dosing Weight 58.636, kg, Priority: STAT, Start date: 03/14/12 20:15:00, Stop date: 03/14/12 20:15:00 morphine 2011-0 No Hung Murillo 5 mg, Me moria Sulfate 9-25 Marx Route: l 01:15: IVP, ONCE, Dosing Weight 58.636, kg, Priority: STAT, Start date: 03/14/12 20:15:00, Stop date: 03/14/12 20:15:00 morphine 2011-0 No Hung Murillo 5 mg, Me moria Sulfate 9-25 Marx Route: l 01:15: IVP, ONCE, Dosing Weight 58.636, kg, Priority: STAT, Start date: 03/14/12 20:15:00, Stop date: 03/14/12 20:15:00 morphine 2011-0 No Hung Murillo 5 mg, Me moria Sulfate 9-25 Marx Route: l 01:15: IVP, ONCE, Vin 00 Dosing Weight 58.636, kg, Priority: STAT, Start date: 03/14/12 20:15:00, Stop date: 03/14/12 20:15:00 morphine 2011-0 No Hung Murillo 5 mg, Me moria Sulfate 9-25 Marx Route: l 01:15: IVP, ONCE, Dosing Weight 58.636, kg, Priority: STAT, Start date: 03/14/12 20:15:00, Stop date: 03/14/12 20:15:00 morphine 2011-0 No Hung Murillo 5 mg, [...] doses or times, Stop date: 03/14/12 19:44:00 Sodium 2012-0 No Hung Murillo 500 mL, Me moria Chloride 9-24 Marx Rate: 500 l 0.9% 23:45: ml/hr, Vin (Bolus) IV 00 Infuse 500 mL over: 1 hr, Route: IV, kg, Total Volume: 500, Bolus Dose, Priority: STAT, Start date: 03/14/12 18:45:00, Duration: 1 doses or times, Stop date: 03/14/12 19:44:00 Sodium 2012-0 No Hung Murillo 500 mL, Me moria Chloride 9-24 Marx Rate: 500 l 0.9% 23:45: ml/hr, Vin (Bolus) IV 00 Infuse 500 mL over: 1 hr, Route: IV, kg, Total Volume: 500, Bolus Dose, Priority: STAT, Start date: 03/14/12 18:45:00, Duration: 1 doses or times, Stop date: 03/14/12 19:44:00 Sodium 2012-0 No Hung Murillo 500 mL, Me moria Chloride 9-24 Marx Rate: 500 l 0.9% 23:45: ml/hr, Vin (Bolus) IV 00 Infuse 500 mL over: 1 hr, Route: IV, kg, Total Volume: 500, Bolus Dose, Priority: STAT, Start date: 03/14/12 18:45:00, Duration: 1 doses or times, Stop date: 03/14/12 19:44:00 Sodium 2012-0 No Hung Murillo 500 mL, Me moria Chloride 9-24 Marx Rate: 500 l 0.9% 23:45: ml/hr, [place] (Bolus) IV 00 Infuse 500 mL over: 1 hr, Route: IV, kg, Total Volume: 500, Bolus Dose, Priority: STAT, Start date: 03/14/12 18:45:00, Duration: 1 doses or times, Stop date: 03/14/12 19:44:00 Sodium 2011-0 No Hung Murillo 500 mL, Me moria Chloride 9-24 Marx Rate: 500 l 0.9% 23:45: ml/hr, [place] (Bolus) IV 00 Infuse 500 mL over: 1 hr, Route: IV, kg, Total Volume: 500, Bolus Dose, Priority: STAT, Start date: 03/14/12 18:45:00, Duration: 1 doses or times, Stop date: 03/14/12 19:44:00 ondansetron 2011-0 No Hung Murillo 4 mg, Memoria 9-24 Marx Route: l 22:19: IVP, ONCE, Vin 00 Dosing Weight 58.636, kg, Priority: STAT, Start date: 03/14/12 17:19:00, Stop date: 03/14/12 17:19:00 morphine 2011-0 No Hung Murillo 5 mg, Me moria Sulfate 9-24 Marx Route: l 22:19: IVP, ONCE, Vin 00 Dosing Weight 58.636, kg, Priority: STAT, Start [...] doses or times, Stop date: 03/14/12 17:48:00 ondansetron 2011-0 No Hung Murillo 4 mg, Memoria 9-24 Marx Route: l 22:19: IVP, ONCE, Dosing Weight 58.636, kg, Priority: STAT, Start date: 03/14/12 17:19:00, Stop date: 03/14/12 17:19:00 morphine 2011-0 No Hung Murillo 5 mg, Me moria Sulfate 9-24 Marx Route: l 22:19: IVP, ONCE, [place] Dosing Weight 58.636, kg, Priority: STAT, Start [...] doses or times, Stop date: 03/14/12 17:48:00 ondansetron 2011-0 No Hung Murillo 4 mg, [...] date: 03/14/12 17:19:00 Sodium 2011-0 No Hung Murlilo 500 mL, Me moria Chloride 9-24 Marx Rate: l 0.9% 22:19: 1,000 [place] (Bolus) IV 00 ml/hr, 500 mL Infuse over: 0.5 hr, Route: IV, kg, Total Volume: 500, Bolus dose, Priority: STAT, Start date: 03/14/12 17:19:00, Duration: 1 doses or times, Stop date: 03/14/12 17:48:00 ondansetron 2012-0 No Hung Murillo 4 mg, Memoria 9-24 Marx Route: l 22:19: IVP, ONCE, [place] 00 Dosing Weight 58.636, kg, Priority: STAT, Start date: 03/14/12 17:19:00, Stop date: 03/14/12 17:19:00 morphine 2011-0 No Hung Murillo 5 mg, Me moria Sulfate 9-24 Marx Route: l 22:19: IVP, ONCE, Vin 00 Dosing Weight 58.636, kg, Priority: STAT, Start date: 03/14/12 17:19:00, Stop date: 03/14/12 17:19:00 pantoprazol 2011-0 No Hung Murillo 40 mg, Memoria e 9-24 Marx Route: l 22:19: IVP, ONCE, Vin 00 Dosing Weight 58.636, kg, For IV push reconstitu te with 10 ml 0.9% sodium chloride and push over at least 3 minutes, Priority: STAT, Start date: 03/14/12 17:19:00, Stop date: 03/14/12 17:19:00 Sodium 2012-0 No Hung Murillo 500 mL, Me moria Chloride 9-24 Marx Rate: l 0.9% 22:19: 1,000 [place] (Bolus) IV 00 ml/hr, 500 mL Infuse over: 0.5 hr, Route: IV, kg, Total Volume: 500, Bolus dose, Priority: STAT, Start date: 03/14/12 17:19:00, Duration: 1 doses or times, Stop date: 03/14/12 17:48:00 ondansetron 2012-0 No Hung Murillo 4 mg, Memoria 9-24 Marx Route: l 22:19: IVP, ONCE, [place] 00 Dosing Weight 58.636, kg, Priority: STAT, Start date: 03/14/12 17:19:00, Stop date: 03/14/12 17:19:00 morphine 2012-0 No Hung Murillo 5 mg, Me moria Sulfate 9-24 Marx Route: l 22:19: IVP, ONCE, [place] 00 Dosing Weight 58.636, kg, Priority: STAT, Start [...] doses or times, Stop date: 03/14/12 17:48:00 ondansetron 2011-0 No Hung Murillo 4 mg, [...] 17:19:00, Stop date: 03/14/12 17:19:00 Sodium No Yordan Murillo 500 mL, Me moria Chloride 03-14 Marx Rate: l 0.9% 22:19: 1,000 [place] (Bolus) IV 00 ml/hr, 500 mL Infuse [...] 120 tab, 1, 1, Substituti on Allowed Reglan 10 Yes Blake 10 mg, 1 M emoria mg oral 6-11 Deangelo tab, PO, l tablet 11:11: Brisa QID-Before H ermann 13 Meals, 120 tab, 1, 1, Substituti on Allowed Reglan 10 Yes Blake 10 mg, 1 M emoria mg oral 6-11 Deangelo tab, PO, l tablet 11:11: Brisa QID-Before H ermann 13 Meals, 120 tab, 1, 1, Substituti on Allowed Reglan 10 Yes Blake 10 mg, 1 M emoria mg oral 6-11 Deangelo tab, PO, l tablet 11:11: Brisa QID-Before H ermann 13 Meals, 120 tab, 1, 1, Substituti on Allowed Reglan 10 Yes Blake 10 mg, 1 M emoria mg oral 6-11 Deangelo tab, PO, l tablet 11:11: Brisa QID-Before H ermann 13 Meals, 120 tab, 1, 1, Substituti on Allowed Reglan 10 Yes Blake 10 mg, 1 M emoria mg oral 6-11 Deangelo tab, PO, l tablet 11:11: Brisa QID-Before H ermann 13 Meals, 120 tab, 1, 1, Substituti on Allowed insulin No Blake 10 unit, 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 6-11 Deangelo 0.1 mL, l H 02:00: Brisa Route: [place] SUB-Q, Drug form: INJ, Bedtime, Start date: 11/29/11 21:00:00, Duration: 30 day, Stop date: 12/28/11 21:00:00 Insulin 2011-0 No Blake 8 unit, Mendoza janice regular 6-11 Deangelo 0.08 mL, l 02:00: Brisa Route: [place] 00 SUB-Q, Drug form: SOLN, Bedtime, Start [...] Deangelo cap, l 02:00: Route: PO, Her rbaden Drug form: CAP, Bedtime, Start date: 11/29/11 21:00:00, Duration: 30 day, Stop date: 12/28/11 21:00:00 insulin 2011-0 No Blake 10 unit, 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 6-11 Deangelo 0.1 mL, l H 02:00: Route: Vin 00 SUB-Q, Drug form: INJ, Bedtime, Start date: 11/29/11 21:00:00, Duration: 30 day, Stop date: 12/28/11 21:00:00 Insulin 2011-0 No Blake 8 unit, Mendoza janice regular [...] 30 day, Stop date: 12/28/11 21:00:00 Geodon 2012-0 No Blake 120 mg, 3 Mem oria 6-11 Deangelo cap, l 02:00: Brisa Route: PO, Her braden 00 Drug form: CAP, Bedtime, Start date: 11/29/11 21:00:00, Duration: 30 day, Stop date: 12/28/11 21:00:00 insulin 2011-0 No Blake 10 unit, 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 6-11 Deangelo 0.1 mL, l H 02:00: Brisa Route: [place] SUB-Q, Drug form: INJ, Bedtime, Start date: 11/29/11 21:00:00, Duration: 30 day, Stop date: 12/28/11 21:00:00 Insulin 2011-0 No Blake 8 unit, Mendoza janice regular 6-11 Deangelo 0.08 mL, l 02:00: Brisa Route: Vin SUB-Q, Drug form: SOLN, Bedtime, Start date: 11/29/11 21:00:00, Duration: 30 day, Stop date: 12/28/11 21:00:00 trazodone 2012-0 No Blake 200 mg, 2 Memoria 100 mg oral 6-11 Deangelo tab, l tablet 02:00: Route: PO, H erm Drug form: TAB, Bedtime, Start date: 11/29/11 21:00:00, Duration: 30 day, Stop date: 12/28/11 21:00:00 Geodon 2012-0 No Blake 120 mg, 3 Mem oria 6-11 Deangelo cap, l 02:00: Brisa Route: PO, Her braden 00 Drug form: CAP, Bedtime, Start date: 11/29/11 21:00:00, Duration: 30 day, Stop date: 12/28/11 21:00:00 insulin 2011-0 No Blake 10 unit, 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 6-11 Deangelo 0.1 mL, l H 02:00: Brisa Route: Vin 00 SUB-Q, Drug form: INJ, Bedtime, Start date: 11/29/11 21:00:00, Duration: 30 day, Stop date: 12/28/11 21:00:00 Insulin 2011-0 No Blake 8 unit, Mendoza janice regular 6-11 Deangelo 0.08 mL, l 02:00: Brisa Route: Vin SUB-Q, Drug form: SOLN, Bedtime, [...] cap, l 02:00: Route: PO, Her braden Drug form: CAP, Bedtime, Start date: 11/29/11 21:00:00, Duration: 30 day, Stop date: 12/28/11 21:00:00 insulin 2011-0 No Blake 10 unit, 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 6-11 Deangelo 0.1 mL, l H 02:00: Brisa Route: [place] SUB-Q, Drug form: INJ, Bedtime, Start date: 11/29/11 21:00:00, Duration: 30 day, Stop date: 12/28/11 21:00:00 Insulin 2011-0 No Blake 8 unit, Mendoza janice regular 6-11 Deangelo 0.08 mL, l 02:00: Brisa Route: [place] SUB-Q, Drug form: SOLN, Bedtime, Start date: 11/29/11 21:00:00, Duration: 30 day, Stop date: 12/28/11 21:00:00 trazodone 2011-0 No Blake 200 mg, 2 Memoria 100 mg oral 6-11 Deangelo tab, l tablet 02:00: Brisa Route: PO, H ermann Drug form: TAB, Bedtime, Start date: 11/29/11 21:00:00, Duration: 30 day, Stop date: 12/28/11 21:00:00 Geodon 2011-0 No Blake 120 mg, 3 Mem oria 6-11 Deangelo cap, l 02:00: Brisa Route: PO, Her braden 00 Drug form: CAP, Bedtime, Start date: 11/29/11 21:00:00, Duration: 30 day, Stop date: 12/28/11 21:00:00 insulin 2011-0 No Blake 10 unit, 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 6-11 Deangelo 0.1 mL, l H 02:00: Brisa Route: [place] 00 SUB-Q, Drug form: INJ, Bedtime, Start date: 11/29/11 21:00:00, Duration: 30 day, Stop date: 12/28/11 21:00:00 Insulin 2011-0 No Blake 8 unit, Mendoza janice regular [...] 30 day, Stop date: 12/28/11 21:00:00 amLODipine 2011-0 No Blake 5 mg, 1 M emoria 6-11 Deangelo tab, l 01:11: Brisa Route: PO, Her braden 00 Drug form: TAB, ONCE, Priority: NOW, Start date: 11/29/11 20:11:00, Stop date: 11/29/11 20:11:00 amLODipine 2012-0 No Blake 5 mg, 1 M emoria 6-11 Deangelo tab, l 01:11: Brisa Route: PO, Her braden 00 Drug form: TAB, ONCE, Priority: NOW, Start date: 11/29/11 20:11:00, Stop date: 11/29/11 20:11:00 amLODipine 2012-0 No Blake 5 mg, 1 M emoria 6-11 Deangelo tab, l 01:11: Brisa Route: PO, Her braden 00 Drug form: TAB, ONCE, Priority: NOW, Start date: 11/29/11 20:11:00, Stop date: 11/29/11 20:11:00 amLODipine 2012-0 No Blake 5 mg, 1 M emoria 6-11 Deangelo tab, l 01:11: Brisa Route: PO, Her braden 00 Drug form: TAB, ONCE, Priority: NOW, Start date: 11/29/11 20:11:00, Stop date: 11/29/11 20:11:00 amLODipine 2012-0 No Blake 5 mg, 1 M emoria 6-11 Deangelo tab, l 01:11: Brisa Route: PO, Her braden 00 Drug form: TAB, ONCE, Priority: NOW, Start date: 11/29/11 20:11:00, Stop date: 11/29/11 20:11:00 amLODipine 2012-0 No Blake 5 mg, 1 M emoria 6-11 Deangelo tab, l 01:11: Brisa Route: PO, Her braden 00 Drug form: TAB, ONCE, Priority: NOW, Start date: 11/29/11 20:11:00, Stop date: 11/29/11 20:11:00 morphine 2012-0 No [place]ism[place] 2 mg, Memori a Sulfate 6-10 Omidvar Route: l 21:33: IVP, ONCE, Start date: 11/29/11 16:33:00, Stop date: 11/29/11 16:33:00 morphine 2012-0 No [place] 2 mg, Memori a Sulfate 6-10 Omidvar Route: l 21:33: IVP, ONCE, [place] 00 Start date: 11/29/11 16:33:00, Stop date: 11/29/11 16:33:00 morphine 2011-0 No [place] 2 mg, Memori a Sulfate 6-10 Omidvar Route: l 21:33: IVP, ONCE, [place] 00 Start date: 11/29/11 16:33:00, Stop date: 11/29/11 16:33:00 morphine 2011-0 No [place] 2 mg, Memori a Sulfate 6-10 Omidvar Route: l 21:33: IVP, ONCE, [place] 00 Start date: 11/29/11 16:33:00, Stop date: 11/29/11 16:33:00 morphine 2011-0 No [place]ismark 2 mg, Memori a Sulfate 6-10 Omidvar Route: l 21:33: IVP, ONCE, Vin 00 Start date: 11/29/11 16:33:00, Stop date: 11/29/11 16:33:00 morphine 2011-0 No [place]ismark 2 mg, Memori a Sulfate 6-10 Omidvar Route: l 21:33: IVP, ONCE, [place] 00 Start date: 11/29/11 16:33:00, Stop date: 11/29/11 16:33:00 morphine 2011-0 No Bismark 2 mg, 0.5 Me moria Sulfate 6-10 Omidvar mL, Route: l 21:32: IVP, Drug [place] 00 form: INJ, ONCE, Start date: 11/29/11 16:32:00, Stop date: 11/29/11 16:32:00 morphine 2011-0 No Bism[place] 2 mg, 0.5 Me moria Sulfate 6-10 Omidvar mL, Route: l 21:32: IVP, Drug Vin 00 form: INJ, ONCE, Start date: 11/29/11 16:32:00, Stop date: 11/29/11 16:32:00 morphine 2011-0 No [place] 2 mg, 0.5 Me moria Sulfate 6-10 Omidvar mL, Route: l 21:32: IVP, Drug [place] 00 form: INJ, ONCE, Start date: 11/29/11 16:32:00, Stop date: 11/29/11 16:32:00 morphine 2011-0 No [place] 2 mg, 0.5 Me moria Sulfate 6-10 Omidvar mL, Route: l 21:32: IVP, Drug [place] 00 form: INJ, ONCE, Start date: 11/29/11 16:32:00, Stop date: 11/29/11 16:32:00 morphine 2011-0 No [place] 2 mg, 0.5 Me moria Sulfate 6-10 Omidvar mL, Route: l 21:32: IVP, Drug Vin 00 form: INJ, ONCE, Start date: 11/29/11 16:32:00, Stop date: 11/29/11 16:32:00 morphine 2011-0 No [place] 2 mg, 0.5 Me moria Sulfate 6-10 Omidvar mL, Route: l 21:32: IVP, Drug [place] 00 form: INJ, ONCE, Start date: 11/29/11 16:32:00, Stop date: 11/29/11 16:32:00 Tylenol 2011-0 No Bismark 650 mg, 2 Mem oria 6-10 Omidvar tab, l 19:16: Route: PO, [place] Drug form: TAB, Q4H, PRN Pain, Start date: 11/29/11 14:16:00, Duration: 30 day, Stop date: 12/29/11 14:15:00 Tylenol 2011-0 No Bismark 650 mg, 2 Mem oria 6-10 Omidvar tab, l 19:16: Route: PO, Vin 00 Drug form: TAB, Q4H, PRN Pain, Start date: 11/29/11 14:16:00, Duration: 30 day, Stop date: 12/29/11 14:15:00 Tylenol 2011-0 No Bismark 650 mg, 2 Mem oria 6-10 Omidvar tab, l 19:16: Route: PO, Vin 00 Drug form: TAB, Q4H, PRN Pain, Start date: 11/29/11 14:16:00, Duration: 30 day, Stop date: 12/29/11 14:15:00 Tylenol 2011-0 No Bismark 650 mg, 2 Mem oria 6-10 Omidvar tab, l 19:16: Route: PO, Vin 00 Drug form: TAB, Q4H, PRN Pain, Start date: 11/29/11 14:16:00, Duration: 30 day, Stop date: 12/29/11 14:15:00 Tylenol 2011-0 No Bismark 650 mg, 2 Mem oria 6-10 Omidvar tab, l 19:16: Route: PO, [place] 00 Drug form: TAB, Q4H, PRN Pain, Start date: 11/29/11 14:16:00, Duration: 30 day, Stop date: 12/29/11 14:15:00 Tylenol 2011-0 No Bismark 650 mg, 2 Mem oria 6-10 Omidvar tab, l 19:16: Route: PO, Vin 00 Drug form: TAB, Q4H, PRN Pain, Start date: 11/29/11 14:16:00, Duration: 30 day, Stop date: 12/29/11 14:15:00 insulin 2011-0 No Blake 14 unit, 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 6-10 Deangelo 0.14 mL, l H 14:00: Brisa Route: [place] 00 SUB-Q, Drug form: INJ, Daily, Start date: 11/29/11 9:00:00, Duration: 30 day, Stop date: 12/28/11 9:00:00 Insulin 2011-0 No Blake 10 unit, Mem oria regular 6-10 Deangelo 0.1 mL, l 14:00: Brisa Route: Vin 00 SUB-Q, Drug form: [...] 30 day, Stop date: 12/28/11 9:00:00 benztropine 2012-0 No Blake 1 mg, 1 Memoria 6-10 [...] date: 12/28/11 9:00:00 insulin 2011-0 No Blake 14 unit, 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 6-10 Deangelo 0.14 mL, l H 14:00: Brisa Route: [place] 00 SUB-Q, Drug form: INJ, Daily, Start date: 11/29/11 9:00:00, Duration: 30 day, Stop date: 12/28/11 9:00:00 Insulin 2011-0 No Blake 10 unit, Mem oria regular 6-10 Deangelo 0.1 mL, l 14:00: Brisa Route: Vin 00 SUB-Q, Drug form: SOLN, Daily, Start date: 11/29/11 9:00:00, Duration: 30 day, Stop date: 12/28/11 9:00:00 Effexor XR 0 No Blake 75 mg, 1 Memoria 6-10 [...] date: 12/28/11 9:00:00 insulin 2011-0 No Blake 14 unit, 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 6-10 Deangelo 0.14 mL, l H 14:00: Brisa Route: [place] 00 SUB-Q, Drug form: INJ, Daily, Start date: 11/29/11 9:00:00, Duration: 30 day, Stop date: 12/28/11 9:00:00 Insulin 2011-0 No Blake 10 unit, Mem oria regular 6-10 Deangelo 0.1 mL, l 14:00: Brisa Route: Vin 00 SUB-Q, Drug form: [...] 2011-0 No Blake 5 mg, 1 M lynria 6-10 Deangelo tab, l 14:00: Brisa Route: PO, Her braden 00 Drug form: TAB, Daily, Start date: 11/29/11 9:00:00, Duration: 30 day, Stop date: 12/28/11 9:00:00 insulin 2011-0 No Blake 14 unit, 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 6-10 Deangelo 0.14 mL, l H 14:00: Brisa Route: [place] 00 SUB-Q, Drug form: INJ, Daily, Start date: 11/29/11 9:00:00, Duration: 30 day, Stop date: 12/28/11 9:00:00 Insulin 2011-0 No Blake 10 unit, Mem oria regular 6-10 Deangelo 0.1 mL, l 14:00: Brisa Route: Vin 00 SUB-Q, Drug form: [...] 30 day, Stop date: 12/28/11 17:00:00 amLODipine 2012-0 No Blake 5 mg, 1 M emoria 6-10 Deangelo tab, l 14:00: Brisa Route: PO, Her braden 00 Drug form: TAB, Daily, Start date: 11/29/11 9:00:00, Duration: 30 day, Stop date: 12/28/11 9:00:00 insulin 2011-0 No Blake 14 unit, 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 6-10 Deangelo 0.14 mL, l H 14:00: Brisa Route: Vin 00 SUB-Q, Drug form: INJ, Daily, Start date: 11/29/11 9:00:00, Duration: 30 day, Stop date: 12/28/11 9:00:00 Insulin 2011-0 No Blake 10 unit, Mem oria regular 6-10 Deangelo 0.1 mL, l 14:00: Brisa Route: [place] 00 SUB-Q, Drug form: SOLN, Daily, Start date: 11/29/11 9:00:00, Duration: 30 day, Stop date: 12/28/11 9:00:00 Effexor XR No Blake 75 mg, 1 Memoria 6-10 Deangelo cap, l 14:00: Brisa Route: PO, Her braden 00 Drug form: ERCAP, Daily, Start date: 11/29/11 9:00:00, Duration: 30 day, Stop date: 12/28/11 9:00:00 lisinopril 2011- No Blake 40 mg, 2 Memoria 6-10 [...] date: 12/28/11 9:00:00 insulin 2011-0 No Blake 14 unit, 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 6-10 Deangelo 0.14 mL, l H 14:00: Brisa Route: Vin 00 SUB-Q, Drug form: INJ, Daily, Start date: 11/29/11 9:00:00, Duration: 30 day, Stop date: 12/28/11 9:00:00 Insulin 2011-0 No Blake 10 unit, Mem oria regular 6-10 Deangelo 0.1 mL, l 14:00: Brisa Route: [place] 00 SUB-Q, Drug form: SOLN, Daily, Start date: 11/29/11 9:00:00, Duration: 30 day, Stop date: 12/28/11 9:00:00 Effexor XR 2011-0 No Blake 75 mg, 1 Memoria 6-10 Deangelo cap, l 14:00: Brisa Route: PO, Her braden Drug form: ERCAP, Daily, Start date: 11/29/11 [...] Deangelo 0.1 mL, l 06:30: Brisa Route: [place] 00 SUB-Q, Drug form: SOLN, TID-Before Meals, [...] 30 day, Stop date: 12/29/11 1:29:00 insulin 2011-0 No Blake 10 unit, Mem [...] 30 day, Stop date: 12/29/11 1:29:00 insulin 2011-0 No Blake 10 unit, Mem oria aspart 6-10 Deangelo 0.1 mL, l 06:30: Brisa Route: [place] 00 SUB-Q, Drug form: SOLN, TID-Before Meals, [...] 30 day, Stop date: 12/29/11 1:29:00 insulin 2011-0 No Blake 10 unit, Mem oria aspart 6-10 Deangelo 0.1 mL, l 06:30: Brisa Route: Vin SUB-Q, Drug form: SOLN, TID-Before Meals, PRN [...] 30 day, Stop date: 12/29/11 1:29:00 insulin 2011-0 No Blake 10 unit, Mem [...] 30 day, Stop date: 12/29/11 1:29:00 insulin 2011-0 No Blake 10 unit, Mem [...] 30 day, Stop date: 12/29/11 1:29:00 glucagon 2012-0 No Blake 1 mg, Memor ia 6-10 Deangelo Route: IM, l 06:30: Brisa Drug form: Her braden 00 PDR/INJ, PRN, PRN Blood Glucose Results, Start date: 11/29/11 1:30:00, Duration: 30 day, Stop date: 12/29/11 1:29:00 normal No Blake 1,000 mL, Mem oria saline 0.9% 6-10 Deangelo Rate: 200 l IV 1,000 mL 06:29: Brisa ml/hr, Vin 00 Infuse over: 5 hr, Route: IV, Dosing Weight 57.273 kg, Total Volume: 1,000, Start date: 11/29/11 1:29:00, Duration: 30 day, Stop date: 12/29/11 1:28:00 normal No Blake 1,000 mL, Mem oria saline 0.9% 6-10 Deangelo Rate: 200 l IV 1,000 mL 06:29: Brisa ml/hr, [place] 00 Infuse over: 5 hr, Route: IV, Dosing Weight 57.273 kg, Total Volume: 1,000, Start date: 11/29/11 1:29:00, Duration: 30 day, Stop date: 12/29/11 1:28:00 normal No Blake 1,000 mL, Mem oria saline 0.9% 6-10 Deangelo Rate: 200 l IV 1,000 mL 06:29: Brisa ml/hr, [place] 00 Infuse over: 5 hr, Route: IV, Dosing Weight 57.273 kg, Total Volume: 1,000, Start date: 11/29/11 1:29:00, Duration: 30 day, Stop date: 12/29/11 1:28:00 normal No Blake 1,000 mL, Mem oria saline 0.9% 6-10 Deangelo Rate: 200 l IV 1,000 mL 06:29: Brisa ml/hr, Vin 00 Infuse over: 5 hr, Route: IV, Dosing Weight 57.273 kg, Total Volume: 1,000, Start date: 11/29/11 1:29:00, Duration: 30 day, Stop date: 12/29/11 1:28:00 normal No Blake 1,000 mL, Mem oria saline 0.9% 6-10 Deangelo Rate: 200 l IV 1,000 mL 06:29: Brisa ml/hr, [place] 00 Infuse over: 5 hr, Route: IV, Dosing Weight 57.273 kg, Total Volume: 1,000, Start date: 11/29/11 1:29:00, Duration: 30 day, Stop date: 12/29/11 1:28:00 normal 0 No Blake 1,000 mL, Mem oria saline 0.9% 6-10 Deangelo Rate: 200 l IV 1,000 mL 06:29: Brisa ml/hr, [place] 00 Infuse over: 5 hr, Route: IV, [...] date: 11/29/11 1:28:00, Stop date: 11/29/11 1:28:00 Saline 2011-0 No Blake 5 ml, [...] IV, l 06:28: Brisa Drug form: Her asiya 00 INJ, ONCE, Priority: STAT, Start date: 11/29/11 1:28:00, Stop date: 11/29/11 1:28:00 Saline 2011-0 No Blake 5 ml, Memoria Flush 0.9% 6-10 Deangelo Route: l 06:28: Brisa IVP, Drug Herm naeem 00 Form: INJ, PRN, PRN Line Flush, Start date: 11/29/11 1:28:00, Duration: 30 day, Stop date: 12/29/11 1:27:00 ondansetron 2012-0 No Blake 4 mg, 2 Memoria 6-10 [...] Route: IV, l 06:28: Brisa Drug form: braden 00 INJ, ONCE, Priority: STAT, Start date: 11/29/11 1:28:00, Stop date: 11/29/11 1:28:00 Saline 2012-0 No Blake 5 ml, [...] Route: IV, l 06:28: Brisa Drug form: braden 00 INJ, ONCE, Priority: STAT, Start date: 11/29/11 1:28:00, Stop date: 11/29/11 1:28:00 Saline 2011-0 No Blake 5 ml, [...] janice 6-10 Deangelo Route: IV, l 06:28: [facility] Drug form: Her braden 00 INJ, ONCE, Priority: STAT, Start date: 11/29/11 1:28:00, Stop date: 11/29/11 1:28:00 Saline 2011-0 No Blake 5 ml, [...] 30 day, Stop date: 12/29/11 1:27:00 Reglan 2012-0 No Blake 10 mg, 2 Mendoza janice 6-10 Deangelo mL, Route: l 06:28: Brisa IVP, Drug Herm naeem 00 form: INJ, Q6H, Priority: STAT, Start date: 11/29/11 1:28:00, Duration: 30 day, Stop date: 12/29/11 0:00:00 Protonix 2012-0 No Blake 40 mg, Mendoza janice 6-10 Deangelo Route: IV, l 06:28: Brisa Drug form: Her braden 00 INJ, ONCE, Priority: STAT, Start date: 11/29/11 1:28:00, Stop date: 11/29/11 1:28:00 metoclopram 2012-0 No Nikki 10 mg, 2 Memoria gadiel 6-10 Sarah mL, Route: l 04:01: Brown IVP, Drug [place] 00 form: INJ, ONCE, Priority: STAT, Start date: 11/28/11 23:01:00, Stop date: 11/28/11 23:01:00 metoclopram 2012-0 No Nikki 10 mg, 2 Memoria gadiel 6-10 Sarah mL, Route: l 04:01: Brown IVP, Drug [place] 00 form: INJ, ONCE, Priority: STAT, Start date: 11/28/11 23:01:00, Stop date: 11/28/11 23:01:00 metoclopram 2012-0 No Nikki 10 mg, 2 Memoria gadiel 6-10 Sarah mL, Route: l 04:01: Brown IVP, Drug Vin 00 form: INJ, ONCE, Priority: STAT, Start date: 11/28/11 23:01:00, Stop date: 11/28/11 23:01:00 metoclopram 2012-0 No Nikki 10 mg, 2 Memoria gadiel 6-10 Sarah mL, Route: l 04:01: Brown IVP, Drug Vin 00 form: INJ, ONCE, Priority: STAT, Start date: 11/28/11 23:01:00, Stop date: 11/28/11 23:01:00 metoclopram 2012-0 No Nikki 10 mg, 2 Memoria gadiel 6-10 Sarah mL, Route: l 04:01: Brown IVP, Drug Vin 00 form: INJ, ONCE, Priority: STAT, Start date: 11/28/11 23:01:00, Stop date: 11/28/11 23:01:00 metoclopram 2012-0 No Nikki 10 mg, 2 Memoria gadiel 6-10 Sarah mL, Route: l 04:01: Brown IVP, Drug [place] 00 form: INJ, ONCE, Priority: STAT, Start date: 11/28/11 23:01:00, Stop date: 11/28/11 23:01:00 Zofran 2012-0 No Nikki 4 mg, 2 Mendoza janice 6-10 Sarah mL, Route: l 02:31: Brown IVP, Drug [place] form: INJ, ONCE, Priority: STAT, Start date: 11/28/11 21:31:00, Stop date: 11/28/11 21:31:00 Zofran 2012-0 No Nikki 4 mg, 2 Mendoza janice 6-10 Sarah mL, Route: l 02:31: Brown IVP, Drug [place] form: INJ, ONCE, Priority: STAT, Start date: 11/28/11 21:31:00, Stop date: 11/28/11 21:31:00 Zofran 2012-0 No Nikki 4 mg, 2 Mendoza janice 6-10 Sarah mL, Route: l 02:31: Brown IVP, Drug Vin 00 form: INJ, ONCE, Priority: STAT, Start date: 11/28/11 21:31:00, Stop date: 11/28/11 21:31:00 Zofran 2011-0 No Nikki 4 mg, 2 Mendoza janice 6-10 Sarah mL, Route: l 02:31: Brown IVP, Drug [place] 00 form: INJ, ONCE, Priority: STAT, Start date: 11/28/11 21:31:00, Stop date: 11/28/11 21:31:00 Zofran 2012-0 No Nikki 4 mg, 2 Mendoza janice 6-10 Sarah mL, Route: l 02:31: Brown IVP, Drug [place] 00 form: INJ, ONCE, Priority: STAT, Start date: 11/28/11 21:31:00, Stop date: 11/28/11 21:31:00 Zofran 2012-0 No Nikki 4 mg, 2 Mendoza janice 6-10 Sarah mL, Route: l 02:31: Brown IVP, Drug Vin 00 form: INJ, ONCE, Priority: STAT, Start date: 11/28/11 21:31:00, Stop date: 11/28/11 21:31:00 NS (Bolus) No Arif Domenico 1,000 mL, Memoria IV 1,000 mL 6 Rate: l 22:48: 1,000 [place] 00 ml/hr, Infuse over: 1 hr, Route: IV, Dosing Weight 57.273 kg, Total Volume: 1,000, Start date: 11/28/11 17:48:00, Duration: 30 day, Stop date: 12/28/11 17:47:00 NS (Bolus) No Arif Domenico 1,000 mL, Memoria IV 1,000 mL 6 Rate: l 22:48: 1,000 [place] 00 ml/hr, Infuse over: 1 hr, Route: [...] Domenico 1,000 mL, Memoria IV 1,000 mL 6- Rate: l 22:48: 1,000 Vin 00 ml/hr, Infuse over: 1 hr, Route: IV, Dosing Weight 57.273 kg, Total Volume: 1,000, Start date: 11/28/11 17:48:00, Duration: 30 day, Stop date: 12/28/11 17:47:00 NS (Bolus) No Arif Domenico 1,000 mL, Memoria IV 1,000 mL 6- Rate: l 22:48: 1,000 [place] 00 ml/hr, Infuse over: 1 hr, Route: IV, Dosing Weight 57.273 kg, Total Volume: 1,000, Start date: 11/28/11 17:48:00, Duration: 30 day, Stop date: 12/28/11 17:47:00 NS (Bolus) No Arif Domenico 1,000 mL, Memoria IV 1,000 mL 6- Rate: l 22:48: 1,000 Vin 00 ml/hr, Infuse over: 1 hr, Route: IV, Dosing Weight 57.273 kg, Total Volume: 1,000, Start date: 11/28/11 17:48:00, Duration: 30 day, Stop date: 12/28/11 17:47:00 NS (Bolus) No Arif Domenico 1,000 mL, Memoria IV 1,000 mL 6- Rate: l 20:36: 1,000 Vin 00 ml/hr, Infuse over: 1 hr, Route: IV, Dosing Weight 57.273 kg, Total Volume: 1,000, Start date: 11/28/11 15:36:00, Duration: 30 day, Stop date: 12/28/11 15:35:00 NS (Bolus) No Arif Domenico 1,000 mL, Memoria IV 1,000 mL 6 Rate: l 20:36: 1,000 Vin 00 ml/hr, Infuse over: 1 hr, Route: IV, Dosing Weight 57.273 kg, Total Volume: 1,000, Start date: 11/28/11 15:36:00, Duration: 30 day, Stop date: 12/28/11 15:35:00 NS (Bolus) No Arif Domenico 1,000 mL, Memoria IV 1,000 mL 6- Rate: l 20:36: 1,000 Vin 00 ml/hr, Infuse over: 1 hr, Route: IV, Dosing Weight 57.273 kg, Total Volume: 1,000, Start date: 11/28/11 15:36:00, Duration: 30 day, Stop date: 12/28/11 15:35:00 NS (Bolus) No Arif Domenico 1,000 mL, Memoria IV 1,000 mL 6- Rate: l 20:36: 1,000 [place] 00 ml/hr, Infuse over: 1 hr, Route: IV, Dosing Weight 57.273 kg, Total Volume: 1,000, Start date: 11/28/11 15:36:00, Duration: 30 day, Stop date: 12/28/11 15:35:00 NS (Bolus) No Arif Domenico 1,000 mL, Memoria IV 1,000 mL 11-27 Rate: l 20:36: 1,000 Vin 00 ml/hr, Infuse over: 1 hr, Route: IV, Dosing Weight 57.273 kg, Total Volume: 1,000, Start date: 11/28/11 15:36:00, Duration: 30 day, Stop date: 12/28/11 15:35:00 NS (Bolus) No Arif Domenico 1,000 mL, [...] date: 11/28/11 15:35:00, Stop date: 11/28/11 15:35:00 Ativan No Arif Domenico 2 mg, 1 Mem oria 6-09 mL, Route: l 20:35: IVP, Drug [place] 00 form: INJ, ONCE, Priority: STAT, Start date: 11/28/11 15:35:00, Stop date: 11/28/11 15:35:00 Ativan No Arif Domenico 2 mg, 1 Mem oria 6-09 mL, Route: l 20:35: IVP, Drug [place] 00 form: INJ, ONCE, Priority: STAT, Start date: 11/28/11 15:35:00, Stop date: 11/28/11 15:35:00 Ativan No Arif Domenico 2 mg, 1 Mem oria 6-09 mL, Route: l 20:35: IVP, Drug Vin 00 form: INJ, ONCE, Priority: STAT, Start date: 11/28/11 15:35:00, Stop date: 11/28/11 15:35:00 Ativan No Arif Domenico 2 mg, 1 Mem oria 6-09 mL, Route: l 20:35: IVP, Drug Vin 00 form: INJ, ONCE, Priority: STAT, Start date: 11/28/11 15:35:00, Stop date: 11/28/11 15:35:00 Ativan No Arif Domenico 2 mg, 1 Mem oria 6-09 mL, Route: l 20:35: IVP, Drug Vin 00 form: INJ, ONCE, Priority: STAT, Start date: 11/28/11 15:35:00, Stop date: 11/28/11 15:35:00 Novolin R Yes Hughes-Jason 8 unit, M emoria 100 3-30 [place] SUB-Q, l units/mL 17:47: Dawson Q12H, 2 He rmann injectable 42 Pu vial, solution Substituti on Allowed, SOLN Novolin R Yes Hughes-Jason 8 unit, M emoria 100 3-30 [place] SUB-Q, l units/mL 17:47: Dawson Q12H, 2 He rmann injectable 42 Pu vial, solution Substituti on Allowed, SOLN Novolin R Yes Hughes-Jason 8 unit, M emoria 100 3-30 [place] SUB-Q, l units/mL 17:47: Dawson Q12H, 2 He rmann injectable 42 Pu vial, solution Substituti on Allowed, SOLN Novolin R Yes Hughes-Jason 8 unit, M emoria 100 3-30 [place] SUB-Q, l units/mL 17:47: Dawson Q12H, 2 He rmann injectable 42 Pu vial, solution Substituti on Allowed, SOLN Novolin R Yes Hughes-Jason 8 unit, M emoria 100 3-30 [place] SUB-Q, l units/mL 17:47: Dawson Q12H, 2 He rmann injectable 42 Pu vial, solution Substituti on Allowed, SOLN Novolin R 2011- Yes Hughes-Jason 8 unit, M emoria 100 3-30 [place] SUB-Q, l units/mL 17:47: Dawson Q12H, 2 He rmann injectable 42 Pu vial, solution Substituti on Allowed, SOLN Novolin N 2011- Yes Hughes-Jason 10 unit, Memoria 100 3-30 [place] SUB-Q, l units/mL 17:46: Dawson Bedtime, H ermann subcutaneou 27 Pu 10 ml, s injection Substituti on Allowed, SUSP Novolin N Yes Hughes-Jason 10 unit, Memoria 100 3-30 [place] SUB-Q, l units/mL 17:46: Dawson Bedtime, H ermann subcutaneou 27 Pu 10 ml, s injection Substituti on Allowed, SUSP Novolin N Yes Hughes-Jason 10 unit, Memoria 100 3-30 [place] SUB-Q, l units/mL 17:46: Dawson Bedtime, H ermann subcutaneou 27 Pu 10 ml, s injection Substituti on Allowed, SUSP Novolin N 2011- Yes Hughes-Jason 10 unit, Memoria 100 3-30 [place] SUB-Q, l units/mL 17:46: Dawson Bedtime, H ermann subcutaneou 27 Pu 10 ml, s injection Substituti on Allowed, SUSP Novolin N 2011- Yes Hughes-Jason 10 unit, Memoria 100 3-30 [place] SUB-Q, l units/mL 17:46: Dawson Bedtime, H ermann subcutaneou 27 Pu 10 ml, s injection Substituti on Allowed, SUSP Novolin N 2011- Yes Hughes-Jason 10 unit, Memoria 100 3-30 [place] SUB-Q, l units/mL 17:46: Dawson Bedtime, H ermann subcutaneou 27 Pu 10 ml, s injection Substituti on Allowed, SUSP Novolin N Yes Hughes-Jason 14 unit, Memoria 100 3-30 [place] SUB-Q, l units/mL 17:44: Dawson QAM, 1 Her braden subcutaneou 37 Pu vial, s injection Substituti on Allowed, SUSP Novolin N Yes Hughes-Jason 14 unit, Memoria 100 3-30 [place] SUB-Q, l units/mL 17:44: Dawson QAM, 1 Her braden subcutaneou 37 Pu vial, s injection Substituti on Allowed, SUSP Novolin N Yes Hughes-Jason 14 unit, Memoria 100 3-30 [place] SUB-Q, l units/mL 17:44: Dawson QAM, 1 Her braden subcutaneou 37 Pu vial, s injection Substituti on Allowed, SUSP Novolin N Yes Hughes-Jason 14 unit, Memoria 100 3-30 [place] SUB-Q, l units/mL 17:44: Dawson QAM, 1 Her braden subcutaneou 37 Pu vial, s injection Substituti on Allowed, SUSP Novolin N Yes Hughes-Jason 14 unit, Memoria 100 3-30 [place] SUB-Q, l units/mL 17:44: Dawson QAM, 1 Her braden subcutaneou 37 Pu vial, s injection Substituti on Allowed, SUSP Novolin N Yes Hughes-Jason 14 unit, Memoria 100 3-30 [place] SUB-Q, l units/mL 17:44: Dawson QAM, 1 Her braden subcutaneou 37 Pu vial, s injection Substituti on Allowed, SUSP magnesium 0 No Hughes-Jason 400 mg, 1 Memoria oxide 3-30 [place] tab, l 14:55: Dawson Route: PO, Her braden 00 Pu Drug form: TAB, ONCE, Priority: STAT, Start date: 09/18/11 9:55:00, Stop date: 09/18/11 9:55:00 magnesium 2011-0 No Hughes-Jason 400 mg, 1 Memoria oxide 3-30 [place] tab, l 14:55: Dawson Route: PO, Her braden 00 Pu Drug form: TAB, ONCE, Priority: STAT, Start date: 09/18/11 9:55:00, Stop date: 09/18/11 9:55:00 magnesium 2011-0 No Hughes-Jason 400 mg, 1 Memoria oxide 3-30 [place] tab, l 14:55: Dawson Route: PO, Her braden 00 Pu Drug form: TAB, ONCE, Priority: STAT, Start date: 09/18/11 9:55:00, Stop date: 09/18/11 9:55:00 magnesium 2012-0 No Hughes-Jason 400 mg, 1 Memoria oxide 3-30 [place] tab, l 14:55: Dawson Route: PO, Her braden 00 Pu Drug form: TAB, ONCE, Priority: STAT, Start date: 09/18/11 9:55:00, Stop date: 09/18/11 9:55:00 magnesium 2011-0 No Hughes-Jason 400 mg, 1 Memoria oxide 3-30 [place] tab, l 14:55: Dawson Route: PO, Her braden 00 Pu Drug form: TAB, ONCE, Priority: STAT, Start date: 09/18/11 9:55:00, Stop date: 09/18/11 9:55:00 magnesium 2011-0 No Hughes-Jason 400 mg, 1 Memoria oxide 3-30 [place] tab, l 14:55: Dawson Route: PO, Her braden 00 Pu Drug form: TAB, ONCE, Priority: STAT, Start date: 09/18/11 9:55:00, Stop date: 09/18/11 9:55:00 Insulin 2012-0 No Hughes-Jason 8 unit, Mem oria regular 3-30 [place] 0.08 mL, l 14:22: Dawson Route: [place] Pu SUB-Q, Drug form: SOLN, ONCE, Priority: STAT, Start date: 09/18/11 9:22:00, Stop date: 09/18/11 9:22:00 Insulin 2011-0 No Hughes-Jason 8 unit, Mem oria regular 3-30 [place] 0.08 mL, l 14:22: Dawson Route: [place] Pu SUB-Q, Drug form: SOLN, ONCE, Priority: STAT, Start date: 09/18/11 9:22:00, Stop date: 09/18/11 9:22:00 Insulin 2012-0 No Hughes-Jason 8 unit, Mem oria regular 3-30 [place] 0.08 mL, l 14:22: Dawson Route: Vin Pu SUB-Q, Drug form: SOLN, ONCE, Priority: STAT, Start date: 09/18/11 9:22:00, Stop date: 09/18/11 9:22:00 Insulin 2012-0 No Hughes-Jason 8 unit, Mem oria regular 3-30 [place] 0.08 mL, l 14:22: Dawson Route: Vin Pu SUB-Q, Drug form: SOLN, ONCE, Priority: STAT, Start date: 09/18/11 9:22:00, Stop date: 09/18/11 9:22:00 Insulin 2012-0 No Hughes-Jason 8 unit, Mem oria regular 3-30 [place] 0.08 mL, l 14:22: Dawson Route: Vin 00 Pu SUB-Q, Drug form: SOLN, ONCE, Priority: STAT, Start date: 09/18/11 9:22:00, Stop date: 09/18/11 9:22:00 Insulin 2012-0 No Hughes-Jason 8 unit, Mem oria regular 3-30 [place] 0.08 mL, l 14:22: Dawson Route: Vin 00 Pu SUB-Q, Drug form: SOLN, ONCE, Priority: STAT, Start date: 09/18/11 9:22:00, Stop date: 09/18/11 9:22:00 Lactated 2012-0 No Hughes-Jason 1,000 mL, Memoria Ringers 3-30 [place] Rate: l (Bolus) IV 14:16: Dawson 1,000 He rmann 1,000 mL 00 Pu ml/hr, Infuse over: 1 hr, Route: IV, Total Volume: 1,000, Bolus Dose, Priority: STAT, Start date: 09/18/11 9:16:00, Duration: 1 doses or times, Stop date: 09/18/11 10:15:00 Lactated 2012-0 No Hughes-Jason 1,000 mL, Memoria Ringers 3-30 [place] Rate: l (Bolus) IV 14:16: Dawson 1,000 He rmann 1,000 mL 00 Pu ml/hr, Infuse over: 1 hr, Route: IV, Total Volume: 1,000, Bolus Dose, Priority: STAT, Start date: 09/18/11 9:16:00, Duration: 1 doses or times, Stop date: 09/18/11 10:15:00 Lactated 2012-0 No Hughes-Jason 1,000 mL, Memoria Ringers 3-30 [place] Rate: l (Bolus) IV 14:16: Dawson 1,000 He rmann 1,000 mL 00 Pu ml/hr, Infuse over: 1 hr, Route: IV, Total Volume: 1,000, Bolus Dose, Priority: STAT, Start date: 09/18/11 9:16:00, Duration: 1 doses or times, Stop date: 09/18/11 10:15:00 Lactated 2012-0 No Hughes-Jason 1,000 mL, Memoria Ringers 3-30 [place] Rate: l (Bolus) IV 14:16: Dawson 1,000 He rmann 1,000 mL 00 Pu ml/hr, Infuse over: 1 hr, Route: IV, Total Volume: 1,000, Bolus Dose, Priority: STAT, Start date: 09/18/11 9:16:00, Duration: 1 doses or times, Stop date: 09/18/11 10:15:00 Lactated 2012-0 No Hughes-Jason 1,000 mL, Memoria Ringers 3-30 [place] Rate: l (Bolus) IV 14:16: Dawson 1,000 He rmann 1,000 mL 00 Pu ml/hr, Infuse over: 1 hr, Route: IV, Total Volume: 1,000, Bolus Dose, Priority: STAT, Start date: 09/18/11 9:16:00, Duration: 1 doses or times, Stop date: 09/18/11 10:15:00 Lactated 2012-0 No Hughes-Jason 1,000 mL, Memoria Ringers 3-30 [place] Rate: l (Bolus) IV 14:16: Dawson 1,000 He rmann 1,000 mL 00 Pu ml/hr, Infuse over: 1 hr, Route: IV, Total Volume: 1,000, Bolus Dose, Priority: STAT, Start date: 09/18/11 9:16:00, Duration: 1 doses or times, Stop date: 09/18/11 10:15:00 Sodium 2012-0 No Hughes-Jason 1,000 mL, Me moria Chloride 3-30 [place] Rate: l 0.9% 14:06: Dawson 1,000 Vin (Bolus) IV 00 Pu ml/hr, 1000 mL Infuse over: 1 hr, Route: IV, kg, Total Volume: 1,000, Bolus Dose, Priority: STAT, Start date: 09/18/11 9:06:00, Duration: 1 doses or times, Stop date: 09/18/11 10:05:00 Sodium 2012-0 No Hughes-Jason 1,000 mL, Me moria Chloride 3-30 [place] Rate: l 0.9% 14:06: Dawson 1,000 Vin (Bolus) IV 00 Pu ml/hr, 1000 mL Infuse over: 1 hr, Route: IV, kg, Total Volume: 1,000, Bolus Dose, Priority: STAT, Start date: 09/18/11 9:06:00, Duration: 1 doses or times, Stop date: 09/18/11 10:05:00 Sodium 2012-0 No Hughes-Jason 1,000 mL, Me moria Chloride 3-30 [place] Rate: l 0.9% 14:06: Dawson 1,000 Vin (Bolus) IV 00 Pu ml/hr, 1000 mL Infuse over: 1 hr, Route: IV, kg, Total Volume: 1,000, Bolus Dose, Priority: STAT, Start date: 09/18/11 9:06:00, Duration: 1 doses or times, Stop date: 09/18/11 10:05:00 Sodium 2012-0 No Hughes-Jason 1,000 mL, Me moria Chloride 3-30 [place] Rate: l 0.9% 14:06: Dawson 1,000 [place] (Bolus) IV 00 Pu ml/hr, 1000 mL Infuse over: 1 hr, Route: IV, kg, Total Volume: 1,000, Bolus Dose, Priority: STAT, Start date: 09/18/11 9:06:00, Duration: 1 doses or times, Stop date: 09/18/11 10:05:00 Sodium 2012-0 No Hughes-Jason 1,000 mL, Me moria Chloride 3-30 [place] Rate: l 0.9% 14:06: Dawson 1,000 Vin (Bolus) IV 00 Pu ml/hr, 1000 mL Infuse over: 1 hr, Route: IV, kg, Total Volume: 1,000, Bolus Dose, Priority: STAT, Start date: 09/18/11 9:06:00, Duration: 1 doses or times, Stop date: 09/18/11 10:05:00 Sodium 2012-0 No Hughes-Jason 1,000 mL, Me moria Chloride 3-30 [place] Rate: l 0.9% 14:06: Dawson 1,000 [place] (Bolus) IV 00 Pu ml/hr, 1000 mL Infuse over: 1 hr, Route: IV, kg, Total Volume: 1,000, Bolus Dose, Priority: STAT, Start date: 09/18/11 9:06:00, Duration: 1 doses or times, Stop date: 09/18/11 10:05:00 sulfamethox 2012-0 Yes Substituti Memoria azole 3-30 on Allowed l 14:04: [place] 58 sulfamethox 2012-0 Yes Substituti Memoria azole 3-30 on Allowed l 14:04: [place] 58 sulfamethox 2012-0 Yes Substituti Memoria azole 3-30 on Allowed l 14:04: Vin 58 sulfamethox 2012-0 Yes Substituti Memoria azole 3-30 on Allowed l 14:04: Vin 58 sulfamethox 2012-0 Yes Substituti Memoria azole 3-30 on Allowed l 14:04: Vin 58 sulfamethox 2012-0 Yes Substituti Memoria azole 3-30 on Allowed l 14:04: Vin 58 Sodium 2012-0 No Hughes-Jason 1,000 mL, Me moria Chloride 3-30 [place] Rate: l 0.9% 13:56: Dawson 1,000 [place] (Bolus) IV 00 Pu ml/hr, 1000 mL Infuse over: 1 hr, Route: IV, kg, Total Volume: 1,000, Bolus Dose, Priority: STAT, Start date: 09/18/11 8:56:00, Duration: 1 doses or times, Stop date: 09/18/11 9:55:00 Sodium 2012-0 No Hughes-Jason 1,000 mL, Me moria Chloride 3-30 [place] Rate: l 0.9% 13:56: Dawson 1,000 [place] (Bolus) IV 00 Pu ml/hr, 1000 mL Infuse over: 1 hr, Route: IV, kg, Total Volume: 1,000, Bolus Dose, Priority: STAT, Start date: 09/18/11 8:56:00, Duration: 1 doses or times, Stop date: 09/18/11 9:55:00 Sodium 2012-0 No Hughes-Jason 1,000 mL, Me moria Chloride 3-30 [place] Rate: l 0.9% 13:56: Dawson 1,000 [place] (Bolus) IV 00 Pu ml/hr, 1000 mL Infuse over: 1 hr, Route: IV, kg, Total Volume: 1,000, Bolus Dose, Priority: STAT, Start date: 09/18/11 8:56:00, Duration: 1 doses or times, Stop date: 09/18/11 9:55:00 Sodium 2012-0 No Hughes-Jason 1,000 mL, Me moria Chloride 3-30 [place] Rate: l 0.9% 13:56: Dawson 1,000 Vin (Bolus) IV 00 Pu ml/hr, 1000 mL Infuse over: 1 hr, Route: IV, kg, Total Volume: 1,000, Bolus Dose, Priority: STAT, Start date: 09/18/11 8:56:00, Duration: 1 doses or times, Stop date: 09/18/11 9:55:00 Sodium 2012-0 No Hughes-Jason 1,000 mL, Me moria Chloride 3-30 [place] Rate: l 0.9% 13:56: Dawson 1,000 [place] (Bolus) IV 00 Pu ml/hr, 1000 mL Infuse over: 1 hr, Route: IV, kg, Total Volume: 1,000, Bolus Dose, Priority: STAT, Start date: 09/18/11 8:56:00, Duration: 1 doses or times, Stop date: 09/18/11 9:55:00 Sodium 2012-0 No Hughes-Jason 1,000 mL, Me moria Chloride 3-30 [place] Rate: l 0.9% 13:56: Dawson 1,000 Vin (Bolus) IV 00 Pu ml/hr, 1000 mL Infuse over: 1 hr, Route: IV, kg, Total Volume: 1,000, Bolus Dose, Priority: STAT, Start date: 09/18/11 8:56:00, Duration: 1 doses or times, Stop date: 09/18/11 9:55:00 clindamycin 2012-0 No Eber L 300 mg, 2 Memoria 3-21 [place] cap, l 21:00: Route: PO, Vin Drug form: CAP, Q8H, Start date: 09/09/11 16:00:00, Duration: 30 day, Stop date: 10/09/11 8:00:00 clindamycin 2012-0 No Eber L 300 mg, 2 Memoria 3-21 [place]abel[place] cap, l 21:00: Route: PO, [place] Drug form: CAP, Q8H, Start date: 09/09/11 16:00:00, Duration: 30 day, Stop date: 10/09/11 8:00:00 clindamycin 2012-0 No Eber L 300 mg, 2 Memoria 3-21 [place] cap, l 21:00: Route: PO, [place] 00 Drug form: CAP, Q8H, Start date: 09/09/11 16:00:00, Duration: 30 day, Stop date: 10/09/11 8:00:00 clindamycin 2012-0 No Eber L 300 mg, 2 Memoria 3-21 [place] cap, l 21:00: Route: PO, Vin 00 Drug form: CAP, Q8H, Start date: 09/09/11 16:00:00, Duration: 30 day, Stop date: 10/09/11 8:00:00 clindamycin 2012-0 No Eber L 300 mg, 2 Memoria 3-21 [place]abel[place] cap, l 21:00: Route: PO, [place] 00 Drug form: CAP, Q8H, Start date: 09/09/11 16:00:00, Duration: 30 day, Stop date: 10/09/11 8:00:00 clindamycin 2012-0 No Eber L 300 mg, 2 Memoria 3-21 [place] cap, l 21:00: Route: PO, [place] Drug form: CAP, Q8H, Start date: 09/09/11 16:00:00, Duration: 30 day, Stop date: 10/09/11 8:00:00 Colace 100 2011-0 Yes Luna 100 mg, 1 Memoria mg oral 3-21 Amelia cap, PO, l capsule 18:47: Bittinger BID, 60 Her braden 19 cap, Substituti on Allowed, CAP Colace 100 2012-0 Yes Luna 100 mg, 1 Memoria mg oral 3-21 [place] cap, PO, l capsule 18:47: Zeeshan BID, 60 Her braden 19 cap, Substituti on Allowed, CAP Colace 100 2011-0 Yes Luna 100 mg, 1 Memoria mg oral 3-21 [place] cap, PO, l capsule 18:47: Zeeshan BID, 60 Her braden 19 cap, Substituti on Allowed, CAP Colace 100 2011-0 Yes Luna 100 mg, 1 Memoria mg oral 3-21 [place] cap, PO, l capsule 18:47: Zeeshan BID, 60 Her braden 19 cap, Substituti on Allowed, CAP Colace 100 0 Yes Luna 100 mg, 1 Memoria mg oral 3-21 [place] cap, PO, l capsule 18:47: Bittinger BID, 60 Her braden 19 cap, Substituti on Allowed, CAP Colace 100 0 Yes Luna 100 mg, 1 Memoria mg oral 3-21 [place] cap, PO, l capsule 18:47: Bittinger BID, 60 Her braden 19 cap, Substituti on Allowed, CAP clindamycin 0 Yes Luna 300 mg, 2 Memoria 150 mg oral 3-21 [place] cap, PO, l capsule 18:46: Zeeshan Q8H, 30 Her braden 55 cap, Substituti on Allowed, CAP clindamycin 2011-0 Yes Luna 300 mg, 2 Memoria 150 mg oral 3-21 [place] cap, PO, l capsule 18:46: Bittinger Q8H, 30 Her braden 55 cap, Substituti on Allowed, CAP clindamycin 2011-0 Yes Luna 300 mg, 2 Memoria 150 mg oral 3-21 [place] cap, PO, l capsule 18:46: Bittinger Q8H, 30 Her braden 55 cap, Substituti on Allowed, CAP clindamycin 2011-0 Yes Luna 300 mg, 2 Memoria 150 mg oral 3-21 [place] cap, PO, l capsule 18:46: Bittinger Q8H, 30 Her braden 55 cap, Substituti on Allowed, CAP clindamycin 2011-0 Yes Luna 300 mg, 2 Memoria 150 mg oral 3-21 Maelia cap, PO, l capsule 18:46: Bittinger Q8H, 30 Her braden 55 cap, Substituti on Allowed, CAP clindamycin Yes Luna 300 mg, 2 Memoria 150 mg oral 3-21 [place] cap, PO, l capsule 18:46: Bittinger Q8H, 30 Her braden 55 cap, Substituti on Allowed, CAP Julian Yes Luna 1 tab, PO, Memoria 10/325 oral 3-21 [place] Q4H, PRN, l tablet 18:46: Bittinger 30 tab, Herm naeem 36 Pain, Substituti on Allowed, Maintenanc e, TAB Julian Yes Luna 1 tab, PO, Memoria 10/325 oral 3-21 [place] Q4H, PRN, l tablet 18:46: Bittinger 30 tab, Herm naeem 36 Pain, Substituti on Allowed, Maintenanc e, TAB Julian Yes Luna 1 tab, PO, Memoria 10/325 oral 3-21 [place] Q4H, PRN, l tablet 18:46: Zeeshan 30 tab, Herm naeem 36 Pain, Substituti on Allowed, Maintenanc e, TAB Julian Yes Luna 1 tab, PO, Memoria 10/325 oral 3-21 [place] Q4H, PRN, l tablet 18:46: Bittinger 30 tab, Herm naeem 36 Pain, Substituti on Allowed, Maintenanc e, TAB Julian 0 Yes Luna 1 tab, PO, Memoria 10/325 oral 3-21 [place] Q4H, PRN, l tablet 18:46: Bittinger 30 tab, Herm naeem 36 Pain, Substituti on Allowed, Maintenanc e, TAB Julian 0 Yes Luna 1 tab, PO, Memoria 10/325 oral 3-21 [place] Q4H, PRN, l tablet 18:46: Zeeshan 30 tab, Herm naeem 36 Pain, Substituti on Allowed, Maintenanc e, TAB Julian 2011- No Hollie Go 1 tab, Mendoza janice 10/325 oral 3-21 Mahi Route: PO, l tablet 09:00: Drug Form: Nidia nn 00 TAB, Q4H, Start date: 09/09/11 4:00:00, Duration: 30 day, Stop date: 10/09/11 0:00:00 Julian 2011-0 No Hollie Donavan 1 tab, Mendoza janice 10/325 oral 3-21 Mahi Route: PO, l tablet 09:00: Drug Form: Nidia nn 00 TAB, Q4H, Start date: 09/09/11 4:00:00, Duration: 30 day, Stop date: 10/09/11 0:00:00 Julian 2011-0 No Hollie Donavan 1 tab, Mendoza janice 10/325 oral 3-21 Mahi Route: PO, l tablet 09:00: Drug Form: Nidia nn 00 TAB, Q4H, Start date: 09/09/11 4:00:00, Duration: 30 day, Stop date: 10/09/11 0:00:00 Julian 2011-0 No Hollie Donavan 1 tab, Mendoza janice 10/325 oral 3-21 Mahi Route: PO, l tablet 09:00: Drug Form: Nidia nn 00 TAB, Q4H, Start date: 09/09/11 4:00:00, Duration: 30 day, Stop date: 10/09/11 0:00:00 Julian 0 No Hollie Donavan 1 tab, Mendoza janice 10/325 oral 3-21 Mahi Route: PO, l tablet 09:00: Drug Form: Nidia nn 00 TAB, Q4H, Start date: 09/09/11 4:00:00, Duration: 30 day, Stop date: 10/09/11 0:00:00 Julian 2011-0 No Hollie Donavan 1 tab, Mendoza janice [...] Duration: 30 day, Stop date: 10/07/11 9:00:00 Colace 100 2011-0 No [place] 100 mg, 1 Memoria mg oral 3-19 Omidvar cap, l capsule 22:00: Route: PO, Herm naeem 00 Drug form: CAP, BID, Start date: 09/07/11 17:00:00, Duration: 30 day, Stop date: 10/07/11 9:00:00 Colace 100 2011-0 No [place] 100 mg, 1 Memoria mg oral 3-19 Omidvar cap, l capsule 22:00: Route: PO, Herm naeem 00 Drug form: CAP, BID, Start date: 09/07/11 17:00:00, Duration: 30 day, Stop date: 10/07/11 9:00:00 Colace 100 2011-0 No [place] 100 mg, 1 Memoria mg oral 3-19 Omidvar cap, l capsule 22:00: Route: PO, Herm naeem 00 Drug form: CAP, BID, Start date: 09/07/11 17:00:00, Duration: 30 day, Stop date: 10/07/11 9:00:00 Colace 100 2011-0 No [place] 100 mg, 1 Memoria mg oral 3-19 Omidvar cap, l capsule 22:00: Route: PO, Herm naeem 00 Drug form: CAP, BID, Start date: 09/07/11 17:00:00, Duration: 30 day, Stop date: 10/07/11 9:00:00 Colace 100 2011-0 No [place] 100 mg, 1 Memoria mg oral 3-19 Omidvar cap, l capsule 22:00: Route: PO, Herm naeem 00 Drug form: CAP, BID, Start date: 09/07/11 17:00:00, Duration: 30 day, Stop date: 10/07/11 9:00:00 enalapril 2011-0 No [place] 5 mg, 1 Mem oria 3-19 Omidvar tab, l 15:30: Route: PO, [place] 00 Drug form: TAB, Daily, Start date: 09/07/11 10:30:00, Duration: 30 day, Stop date: 10/07/11 9:00:00 enalapril 2011-0 No [place] 5 mg, 1 Mem oria 3-19 Omidvar tab, l 15:30: Route: PO, [place] 00 Drug form: TAB, Daily, Start date: 09/07/11 10:30:00, Duration: 30 day, Stop date: 10/07/11 9:00:00 enalapril 2012-0 No [place] 5 mg, 1 Mem oria 3-19 Omidvar tab, l 15:30: Route: PO, [place] 00 Drug form: TAB, Daily, Start date: 09/07/11 10:30:00, Duration: 30 day, Stop date: 10/07/11 9:00:00 enalapril 2012-0 No [place] 5 mg, 1 Mem oria 3-19 Omidvar tab, l 15:30: Route: PO, Vin 00 Drug form: TAB, Daily, Start date: 09/07/11 10:30:00, Duration: 30 day, Stop date: 10/07/11 9:00:00 enalapril 2012-0 No [place] 5 mg, 1 Mem oria 3-19 Omidvar tab, l 15:30: Route: PO, [place] 00 Drug form: TAB, Daily, Start date: 09/07/11 10:30:00, Duration: 30 day, Stop date: 10/07/11 9:00:00 enalapril 2012-0 No [place] 5 mg, 1 Mem oria [...] 1 day, Stop date: 09/08/11 9:18:00 naloxone 2012-0 No Gayle 0.04 mg, Me moria 3-19 Josefina 0.1 mL, l 14:19: Gavin Route: [place] 00 IVP, Drug form: INJ, Q2MIN, PRN Narcotic Reversal, Start date: 03/19/12 9:19:00, Duration: 8 doses or times, Stop date: Limited # of times ondansetron No Gayle 4 mg, 2 Memoria 3-19 Josefina mL, Route: l 14:19: [place] IVP, Drug Jake n 00 form: INJ, [...] Josefina Route: PO, l one 325 14:19: [place] Drug Form: He rmann mg-10 mg/15 00 SOLN, Q4H, mL oral PRN Pain solution Score 4-6, Start date: 09/07/11 9:19:00, Duration: 1 day, Stop date: 09/08/11 8:00:00 flumazenil No Gayle 0.2 mg, 2 Memoria 3-19 Josefina mL, Route: l 14:19: [place] IVP, Drug Jake n 00 form: INJ, PRN, PRN Benzodiaze pine Reversal, Initial dose, Start date: 09/07/11 9:19:00, Duration: 1 day, Stop date: 09/08/11 9:18:00 naloxone 2011-0 No Gayle 0.04 mg, Me moria 3-19 Josefina 0.1 mL, l 14:19: [place] Route: Vin 00 IVP, Drug form: INJ, Q2MIN, PRN Narcotic Reversal, Start date: 09/07/11 9:19:00, Duration: 8 doses or times, Stop date: Limited # of times ondansetron 0 No Gayle 4 mg, 2 Memoria 3-19 Josefina mL, Route: l 14:19: [place] IVP, Drug Jake n 00 form: INJ, ONCE, PRN Nausea & Vomiting, Start date: 09/07/11 9:19:00 hydromorpho No Gayle 0.5 mg, Memoria ne 3-19 Josefina 0.25 mL, l 14:19: [place] Route: [place] 00 IVP, Drug form: INJ, Q5Min, PRN Pain Score 4-6, Start date: 09/07/11 9:19:00, Duration: 5 doses or times, Stop date: Limited # of times acetaminoph No Gayle 15 mL, M emoria en-hydrocod 3-19 Josefina Route: PO, l one 325 14:19: [place] Drug Form: He rmann mg-10 mg/15 00 SOLN, Q4H, mL oral PRN Pain solution Score 4-6, Start date: 09/07/11 9:19:00, Duration: 1 day, Stop date: 09/08/11 8:00:00 flumazenil No Gayle 0.2 mg, 2 Memoria 3-19 Josefina mL, Route: l 14:19: [place] IVP, Drug Jake n 00 form: INJ, PRN, PRN Benzodiaze pine Reversal, Initial dose, Start date: 09/07/11 9:19:00, Duration: 1 day, Stop date: 09/08/11 9:18:00 naloxone No Gayle 0.04 mg, Me moria 3-19 Josefina 0.1 mL, l 14:19: Gavin Route: [place] 00 IVP, Drug form: INJ, Q2MIN, PRN [...] ne 3-19 Josefina 0.25 mL, l 14:19: [place] Route: [place] 00 IVP, Drug form: INJ, Q5Min, PRN Pain Score 4-6, Start date: 09/07/11 9:19:00, Duration: 5 doses or times, Stop date: Limited # of times acetaminoph No Gayle 15 mL, M emoria en-hydrocod 3-19 Josefina Route: PO, l one 325 14:19: [place] Drug Form: He rmann mg-10 mg/15 00 SOLN, Q4H, mL oral PRN Pain solution Score 4-6, Start date: 09/07/11 9:19:00, Duration: 1 day, Stop date: 09/08/11 8:00:00 flumazenil No Gayle 0.2 mg, 2 Memoria 3-19 Josefina mL, Route: l 14:19: [place] IVP, Drug Jake n 00 form: INJ, PRN, PRN Benzodiaze pine Reversal, Initial dose, Start date: 09/07/11 9:19:00, Duration: 1 day, Stop date: 09/08/11 9:18:00 naloxone 0 No Gayle 0.04 mg, Me moria 3-19 Josefina 0.1 mL, l 14:19: [place] Route: [place] 00 IVP, Drug form: INJ, Q2MIN, PRN Narcotic Reversal, Start date: 09/07/11 9:19:00, Duration: 8 doses or times, Stop date: Limited # of times ondansetron No Gayle 4 mg, 2 Memoria 3-19 Josefina mL, Route: l 14:19: [place] IVP, Drug Jake n 00 form: INJ, [...] Josefina Route: PO, l one 325 14:19: [place] Drug Form: He rmann mg-10 mg/15 00 SOLN, Q4H, mL oral PRN Pain solution Score 4-6, Start date: 09/07/11 9:19:00, Duration: 1 day, Stop date: 09/08/11 8:00:00 flumazenil 2011-0 No Gayle 0.2 mg, 2 Memoria 3-19 Josefina mL, Route: l 14:19: [place] IVP, Drug Jake n 00 form: INJ, [...] ne 3-19 Josefina 0.25 mL, l 14:19: [place] Route: Vin 00 IVP, Drug form: INJ, [...] Duration: 1 day, Stop date: 09/08/11 8:00:00 flumazenil 2011-0 No Gayle 0.2 mg, 2 Memoria 3-19 Josefina mL, Route: l 14:19: [place] IVP, Drug Jake n 00 form: INJ, PRN, PRN Benzodiaze pine Reversal, Initial dose, Start date: 09/07/11 9:19:00, Duration: 1 day, Stop date: 09/08/11 9:18:00 naloxone 2011- No Gayle 0.04 mg, Me moria - Josefina 0.1 mL, l 14:19: Gavin Route: [place] 00 IVP, Drug form: INJ, Q2MIN, PRN [...] ne - Josefina 0.25 mL, l 14:19: [place] Route: [place] IVP, Drug form: INJ, Q5Min, PRN Pain [...] Duration: 30 day, Stop date: 10/07/11 9:05:00 Lactated 2012-0 No [place] 1,000 mL, Me moria Ringers IV 3-19 Omidvar Rate: 125 l 1,000 mL 14:06: ml/hr, [place] 00 Infuse over: 8 hr, Route: IV, Dosing Weight 68.182 kg, Total Volume: 1,000, Start date: 09/07/11 9:06:00, Duration: 30 day, Stop date: 10/07/11 9:05:00 Lactated 2012-0 No [place] 1,000 mL, Me moria Ringers IV 3-19 Omidvar Rate: 125 l 1,000 mL 14:06: ml/hr, [place] 00 Infuse over: 8 hr, Route: IV, Dosing Weight 68.182 kg, Total Volume: 1,000, Start date: 09/07/11 9:06:00, Duration: 30 day, Stop date: 10/07/11 9:05:00 Lactated 2012-0 No [place] 1,000 mL, Me moria Ringers IV 3-19 Omidvar Rate: 125 l 1,000 mL 14:06: ml/hr, [place] 00 Infuse over: 8 hr, Route: IV, Dosing Weight 68.182 kg, Total Volume: 1,000, Start date: 09/07/11 9:06:00, Duration: 30 day, Stop date: 10/07/11 9:05:00 Lactated 2012-0 No [place] 1,000 mL, Me moria Ringers IV 3-19 Omidvar Rate: 125 l 1,000 mL 14:06: ml/hr, Vin 00 Infuse over: 8 hr, Route: IV, Dosing Weight 68.182 kg, Total Volume: 1,000, Start date: 09/07/11 9:06:00, Duration: 30 day, Stop date: 10/07/11 9:05:00 Lactated 2012-0 No [place] 1,000 mL, Me moria Ringers IV 3-19 Omidvar Rate: 125 l 1,000 mL 14:06: ml/hr, [place] 00 Infuse over: 8 hr, Route: IV, Dosing Weight 68.182 kg, Total Volume: 1,000, Start date: 09/07/11 9:06:00, Duration: 30 day, Stop date: 10/07/11 9:05:00 clindamycin 2011-0 No Maximo R 600 mg, Memoria 3-19 Arias Route: l 13:31: IVPB, Vin 00 ONCE, Start date: 09/07/11 8:31:00, Stop date: 09/07/11 8:31:00 clindamycin 2011-0 No Maximo R 600 mg, Memoria 3-19 Arias Route: l 13:31: IVPB, [place] 00 ONCE, Start date: 09/07/11 8:31:00, Stop date: 09/07/11 8:31:00 clindamycin 2011-0 No Maximo R 600 mg, Memoria 3-19 Arias Route: l 13:31: IVPB, Vin 00 ONCE, Start date: 09/07/11 8:31:00, Stop date: 09/07/11 8:31:00 clindamycin 2011-0 No Maximo R 600 mg, Memoria 3-19 Arias Route: l 13:31: IVPB, [place] 00 ONCE, Start date: 09/07/11 8:31:00, Stop date: 09/07/11 8:31:00 clindamycin 2011-0 No Maximo R 600 mg, Memoria 3-19 Arias Route: l 13:31: IVPB, Vin 00 ONCE, Start date: 09/07/11 8:31:00, Stop date: 09/07/11 8:31:00 clindamycin 2011-0 No Maximo R 600 mg, Memoria 3-19 Arias Route: l 13:31: IVPB, [place] 00 ONCE, Start date: 09/07/11 8:31:00, Stop date: 09/07/11 8:31:00 normal 2011-0 No Yury W 1,000 mL, Deepali hickey saline 0.9% 09-06 Adeline Rate: 100 l IV 1,000 mL 05:00: ml/hr, Herm naeem 00 Infuse over: 10 hr, Route: IV, Dosing Weight 68.18 kg, Total Volume: 1,000, Start date: 09/07/11 0:00:00, Duration: 30 day, Stop date: 10/06/11 23:59:00 normal 2011-0 No Yury W 1,000 mL, M emoria saline 0.9% 3-19 Adeline Rate: 100 l IV 1,000 mL 05:00: ml/hr, Herm naeem 00 Infuse over: 10 hr, Route: IV, Dosing Weight 68.18 kg, Total Volume: 1,000, Start date: 09/07/11 0:00:00, Duration: 30 day, Stop date: 10/06/11 23:59:00 normal 2011-0 No Yury W 1,000 mL, M emoria [...] Duration: 30 day, Stop date: 10/06/11 8:24:00 normal 0 No Yury W 1,000 mL, M emoria saline 0.9% 3-18 Adeline Rate: 100 l IV 1000 mL 13:25: ml/hr, Nidia nn 00 Infuse over: 10 hr, Route: IV, kg, Total Volume: 1,000, Start date: 09/06/11 8:25:00, Duration: 30 day, Stop date: 10/06/11 8:24:00 normal No Yury W 1,000 mL, M emoria saline 0.9% 3-18 Adeline Rate: 100 l IV 1000 mL 13:25: ml/hr, Nidia nn 00 Infuse over: 10 hr, Route: IV, kg, Total Volume: 1,000, Start date: 09/06/11 8:25:00, Duration: 30 day, Stop date: 10/06/11 8:24:00 normal No Yury W 1,000 mL, M emoria saline 0.9% 3-18 Adeline Rate: 100 l IV 1000 mL 13:25: ml/hr, Nidia nn 00 Infuse over: 10 hr, Route: IV, kg, Total Volume: 1,000, Start date: 09/06/11 8:25:00, Duration: 30 day, Stop date: 10/06/11 8:24:00 normal 0 No Yury W 1,000 mL, M emoria saline 0.9% 3-18 Adeline Rate: 100 l IV 1000 mL 13:25: ml/hr, Nidia nn 00 Infuse over: 10 hr, Route: IV, kg, Total Volume: 1,000, Start date: 09/06/11 8:25:00, Duration: 30 day, Stop date: 10/06/11 8:24:00 normal 2012-0 No Yury W 1,000 mL, M emoria saline 0.9% 3-18 Adeline Rate: 100 l IV 1000 mL 13:25: ml/hr, Nidia nn Infuse over: 10 hr, Route: IV, kg, Total Volume: 1,000, Start date: 09/06/11 8:25:00, Duration: 30 day, Stop date: 10/06/11 8:24:00 senna 8.6 2011-0 No [place] 8.6 mg, 1 M emoria [...] Duration: 30 day, Stop date: 10/05/11 9:00:00 senna 8.6 2011-0 No [place] 8.6 mg, 1 M emoria [...] Duration: 30 day, Stop date: 10/05/11 9:00:00 senna 8.6 2011-0 No [place] 8.6 mg, 1 M emoria [...] Duration: 30 day, Stop date: 10/05/11 9:00:00 senna 8.6 2012-0 No [place] 8.6 mg, 1 M emoria [...] Duration: 30 day, Stop date: 10/05/11 9:00:00 senna 8.6 2012-0 No [place] 8.6 mg, 1 M emoria [...] Duration: 30 day, Stop date: 10/05/11 9:00:00 senna 8.6 2012-0 No [place] 8.6 mg, 1 M emoria mg oral 3-17 Omidvar tab, l tablet 15:00: Route: PO, Nidia Drug Form: TAB, BID, PRN as needed for constipati on, Start date: 09/05/11 10:00:00, Duration: 30 day, Stop date: 10/05/11 9:00:00 Colace 100 2011-0 No [place] 100 mg, 1 Memoria mg oral 3-17 Omidvar cap, l capsule 15:00: Route: PO, Drug form: CAP, BID, PRN as needed for constipati on, Start date: 09/05/11 10:00:00, Duration: 30 day, Stop date: 10/05/11 9:00:00 potassium 2011-0 No [place] 40 mEq, 2 M emoria chloride 3-17 Omidvar tab, l 14:11: Route: PO, Drug form: ERTAB, ONCE, Start date: 09/05/11 9:11:00, Stop date: 09/05/11 9:11:00 potassium 2011-0 No [place] 40 mEq, 2 M emoria chloride 3-17 Omidvar tab, l 14:11: Route: PO, Drug form: ERTAB, ONCE, Start date: 09/05/11 9:11:00, Stop date: 09/05/11 9:11:00 potassium 2011-0 No [place] 40 mEq, 2 M emoria chloride 3-17 Omidvar tab, l 14:11: Route: PO, Vin 00 Drug form: ERTAB, ONCE, Start date: 09/05/11 9:11:00, Stop date: 09/05/11 9:11:00 potassium 2011-0 No [place] 40 mEq, 2 M emoria chloride 3-17 Omidvar tab, l 14:11: Route: PO, [place] 00 Drug form: ERTAB, ONCE, Start date: 09/05/11 9:11:00, Stop date: 09/05/11 9:11:00 potassium 2011-0 No [place] 40 mEq, 2 M emoria chloride 3-17 Omidvar tab, l 14:11: Route: PO, Vin 00 Drug form: ERTAB, ONCE, Start date: 09/05/11 9:11:00, Stop date: 09/05/11 9:11:00 potassium 2012-0 No [place] 40 mEq, 2 [...] Duration: 30 day, Stop date: 10/04/11 22:59:00 Dulcolax 2012-0 No Charbel A 10 mg, 2 M emoria Laxative 3-17 Wong tab, l 04:00: Route: PO, [place] 00 Drug form: ECTAB, Daily, PRN Constipati on, Priority: NOW, Start date: 09/04/11 23:00:00, Duration: 30 day, Stop date: 10/04/11 22:59:00 Dulcolax 2012-0 No Charbel A 10 mg, 2 M emoria Laxative 3-17 Wong tab, l 04:00: Route: PO, Drug form: ECTAB, Daily, PRN Constipati on, Priority: NOW, Start date: 09/04/11 23:00:00, Duration: 30 day, Stop date: 10/04/11 22:59:00 Dulcolax 2012-0 No Charbel A 10 mg, 2 M emoria Laxative 3-17 Wong tab, l 04:00: Route: PO, Vin 00 Drug form: ECTAB, Daily, PRN Constipati on, Priority: NOW, Start date: 09/04/11 23:00:00, Duration: 30 day, Stop date: 10/04/11 22:59:00 Dulcolax 2012-0 No Charbel A 10 mg, 2 M emoria Laxative 3-17 Wong tab, l 04:00: Route: PO, [place] 00 Drug form: ECTAB, Daily, PRN Constipati on, Priority: NOW, Start date: 09/04/11 23:00:00, Duration: 30 day, Stop date: 10/04/11 22:59:00 Dulcolax 2012-0 No Charbel A 10 mg, 2 M emoria Laxative 3-17 Wong tab, l 04:00: Route: PO, [place] 00 Drug form: ECTAB, Daily, PRN Constipati [...] Duration: 30 day, Stop date: 10/04/11 18:10:00 Zofran 2012-0 No Hector 4 mg, 2 Memori a 3-16 Hissam mL, Route: l 23:11: Peg IV, Drug Jake n 00 form: INJ, Q4H, PRN as needed for nausea/vom iting, Priority: NOW, Start date: 09/04/11 18:11:00, Duration: 30 day, Stop date: 10/04/11 18:10:00 Zofran 2012-0 No Hector 4 mg, 2 Memori a 3-16 Hissam mL, Route: l 23:11: Peg IV, Drug Jake n 00 form: INJ, Q4H, PRN as needed for nausea/vom iting, Priority: NOW, Start date: 09/04/11 18:11:00, Duration: 30 day, Stop date: 10/04/11 18:10:00 Zofran 2012-0 No Hector 4 mg, 2 Memori a 3-16 Hissam mL, Route: l 23:11: Peg IV, Drug Jake n 00 form: INJ, Q4H, PRN as needed for nausea/vom iting, Priority: NOW, Start date: 09/04/11 18:11:00, Duration: 30 day, Stop date: 10/04/11 18:10:00 Zofran 2012-0 No Hector 4 mg, 2 Memori a 3-16 Hissam mL, Route: l 23:11: Peg IV, Drug Jake n 00 form: INJ, Q4H, PRN as needed for nausea/vom iting, Priority: NOW, Start date: 09/04/11 18:11:00, Duration: 30 day, Stop date: 10/04/11 18:10:00 Zofran 2012-0 No Hector 4 mg, 2 Memori a 3-16 Hissam mL, Route: l 23:11: Peg IV, Drug Jake n 00 form: INJ, Q4H, PRN as needed for nausea/vom iting, Priority: NOW, Start date: 09/04/11 18:11:00, Duration: 30 day, Stop date: 10/04/11 18:10:00 Julian 2012-0 No Mahammad 1 tab, Memori a 10/325 oral 3-16 Simeon Route: PO, l tablet 17:00: Dez Drug Form: Tyrel rmann 00 TAB, Q4H, Start date: 09/04/11 12:00:00, Duration: 30 day, Stop date: 10/04/11 8:00:00 Julian 2012-0 No Mahammad 1 tab, Memori a 10/325 oral 3-16 Simeon Route: PO, l tablet 17:00: Dez Drug Form: Tyrel rmann 00 TAB, Q4H, Start date: 09/04/11 12:00:00, Duration: 30 day, Stop date: 10/04/11 8:00:00 Julian 2012-0 No Mahammad 1 tab, Memori a 10/325 oral 3-16 Simeon Route: PO, l tablet 17:00: Dez Drug Form: Tyrel rmann 00 TAB, Q4H, Start date: 09/04/11 12:00:00, Duration: 30 day, Stop date: 10/04/11 8:00:00 Julian 2012-0 No Mahammad 1 tab, Memori a 10/325 oral 3-16 Simeon Route: PO, l tablet 17:00: Dez Drug Form: Tyrel rmann 00 TAB, Q4H, Start date: 09/04/11 12:00:00, Duration: 30 day, Stop date: 10/04/11 8:00:00 Julian 2012-0 No Mahammad 1 tab, Memori a 10/325 oral 3-16 Simeon Route: PO, l tablet 17:00: Dez Drug Form: Tyrel rmann 00 TAB, Q4H, Start date: 09/04/11 12:00:00, Duration: 30 day, Stop date: 10/04/11 8:00:00 Julian 2012-0 No Mahammad 1 tab, Memori a 10/325 oral 3-16 Simeon Route: PO, l tablet 17:00: Dez Drug Form: Tyrel rmann 00 TAB, Q4H, Start date: 09/04/11 [...] Duration: 7 day, Stop date: 09/11/11 10:00:00 Sodium 2012-0 No Rosalino 320 mL, Memor ia Chloride 3-16 Kavon Rate: 10 l 0.9% IV 320 15:01: ml/hr, Herm naeem mL + 00 Infuse ropivacaine over: 40 1% 800 mg + hr, Route: Q-Pump 1 ea NERVE BLOCK, Dosing Weight 68.182 kg, Total Volume: 400, Start date: 09/04/11 10:01:00, Duration: 7 day, Stop date: 09/11/11 10:00:00 Sodium 2012-0 No Rosalino 320 mL, Memor ia Chloride 3-16 Kavon Rate: 10 l 0.9% IV 320 15:01: ml/hr, Herm naeem mL + 00 Infuse ropivacaine over: 40 1% 800 mg + hr, Route: Q-Pump 1 ea NERVE BLOCK, Dosing Weight 68.182 kg, Total Volume: 400, Start date: 09/04/11 10:01:00, Duration: 7 day, Stop date: 09/11/11 10:00:00 Sodium 2012-0 No Rosalino 320 mL, Memor ia Chloride 3-16 Kavon Rate: 10 l 0.9% IV 320 15:01: ml/hr, Herm naeem mL + 00 Infuse ropivacaine over: 40 1% 800 mg + hr, Route: Q-Pump 1 ea NERVE BLOCK, Dosing Weight 68.182 kg, Total Volume: 400, Start date: 09/04/11 10:01:00, Duration: 7 day, Stop date: 09/11/11 10:00:00 Sodium 2012-0 No Rosalino 320 mL, Memor ia Chloride -16 Kavon Rate: 10 l 0.9% IV 320 15:01: ml/hr, Herm naeem mL + 00 Infuse ropivacaine over: 40 1% 800 mg + hr, Route: Q-Pump 1 ea NERVE BLOCK, Dosing Weight 68.182 kg, Total Volume: 400, Start date: 09/04/11 10:01:00, Duration: 7 day, Stop date: 09/11/11 10:00:00 Sodium 2011-0 No Rosalino 320 mL, Memor ia Chloride -16 Kavon Rate: 10 l 0.9% IV 320 [...] 10cc/hr, l - site 1 14:50: Route: [place] 400 mL 00 NERVE BLOCK, Start date: 09/04/11 9:50:00 400 mL, Duration: 30 day, Stop date: 10/04/11 9:49:00 naloxone 2012-0 No Rosalino 0.04 mg, Me moria 3-16 Kavon 0.1 mL, l 14:50: Route: Vin IVP, Drug form: INJ, Q2MIN, PRN Narcotic Reversal, Start date: 09/04/11 9:50:00, Duration: 30 day, Stop date: 10/04/11 9:49:00 ondansetron 2011-0 No Rosalino 4 mg, 2 Memoria 3-16 Kaovn mL, Route: l 14:50: IVP, Drug form: INJ, ONCE, PRN Nausea & Vomiting, Start date: 09/04/11 9:50:00, Duration: 1 doses or times, Stop date: Limited # of times ropivacaine 2011-0 No Rosalino Dosing: Memoria 0.2% in NS 3-16 Kavon 10cc/hr, l - site 1 14:50: Route: [place] 400 mL 00 NERVE BLOCK, Start date: 09/04/11 9:50:00 400 mL, Duration: 30 day, Stop date: 10/04/11 9:49:00 naloxone 2012-0 No Rosalino 0.04 mg, Me moria 3-16 Kavon 0.1 mL, l 14:50: Route: [place] IVP, Drug form: INJ, Q2MIN, PRN Narcotic Reversal, Start date: 09/04/11 9:50:00, Duration: 30 day, Stop date: 10/04/11 9:49:00 ondansetron 2011-0 No Rosalino 4 mg, 2 Memoria 3-16 Kavon mL, Route: l 14:50: IVP, Drug form: INJ, ONCE, PRN Nausea & Vomiting, Start date: 09/04/11 9:50:00, Duration: 1 doses or times, Stop date: Limited # of times ropivacaine 2012-0 No Rosalino Dosing: Memoria 0.2% in NS 3-16 Kavon 10cc/hr, l - site 1 14:50: Route: Vin 400 mL 00 NERVE BLOCK, Start date: 09/04/11 9:50:00 400 mL, Duration: 30 day, Stop date: 10/04/11 9:49:00 naloxone 2012-0 No Rosalino 0.04 mg, Me moria 3-16 Kavon 0.1 mL, l 14:50: Route: [place] IVP, Drug form: INJ, Q2MIN, PRN Narcotic Reversal, Start date: 09/04/11 9:50:00, Duration: 30 day, Stop date: 10/04/11 9:49:00 ondansetron 2011-0 No Rosalino 4 mg, 2 Memoria 3-16 Kavon mL, Route: l 14:50: IVP, Drug form: INJ, ONCE, PRN Nausea & Vomiting, Start date: 09/04/11 9:50:00, Duration: 1 doses or times, Stop date: Limited # of times ropivacaine 2011-0 No Rosalino Dosing: Memoria 0.2% in NS 3-16 Kvaon 10cc/hr, l - site 1 14:50: Route: [place] 400 mL 00 NERVE BLOCK, Start date: 09/04/11 9:50:00 400 mL, Duration: 30 day, Stop date: 10/04/11 9:49:00 naloxone 2012-0 No Rosalino 0.04 mg, Me moria 3-16 Kavon 0.1 mL, l 14:50: Route: [place] IVP, Drug form: INJ, Q2MIN, PRN Narcotic Reversal, Start date: 09/04/11 9:50:00, Duration: 30 day, Stop date: 10/04/11 9:49:00 ondansetron 2011-0 No Rosalino 4 mg, 2 Memoria 3-16 Kavon mL, Route: l 14:50: IVP, Drug form: INJ, ONCE, PRN Nausea & Vomiting, Start date: 09/04/11 9:50:00, Duration: 1 doses or times, Stop date: Limited # of times ropivacaine 2012-0 No Rosalino Dosing: Memoria 0.2% in NS 3-16 Kavon 10cc/hr, l - site 1 14:50: Route: [place] 400 mL 00 NERVE BLOCK, Start date: 09/04/11 9:50:00 400 mL, Duration: 30 day, Stop date: 10/04/11 9:49:00 naloxone 2011- No Rosalino 0.04 mg, Me moria 3-16 Kavon 0.1 mL, l 14:50: Route: [place] 00 IVP, Drug form: INJ, Q2MIN, PRN Narcotic Reversal, Start date: 09/04/11 9:50:00, Duration: 30 day, Stop date: 10/04/11 9:49:00 ondansetron 2011- No Rosalino 4 mg, 2 [...] 30 day, Stop date: 10/04/11 9:49:00 naloxone 0 No Rosalino 0.04 mg, Me moria 3-16 Kavon 0.1 mL, l 14:50: Route: [place] 00 IVP, Drug form: INJ, Q2MIN, PRN Narcotic Reversal, Start date: 09/04/11 9:50:00, Duration: 30 day, Stop date: 10/04/11 9:49:00 Julian 2011-0 No Bism[place] 1 tab, Memoria 10/325 oral 3-16 Omidvar Route: PO, l tablet 14:49: Drug Form: Nidia nn 00 TAB, Q4H, PRN Pain, Start date: 09/04/11 9:49:00, Stop date: 10/04/11 9:48:00 Julian 2011-0 No Bism[place] 1 tab, Memoria 10/325 oral 3-16 Omidvar Route: PO, l tablet 14:49: Drug Form: Nidia nn 00 TAB, Q4H, PRN Pain, Start date: 09/04/11 9:49:00, Stop date: 10/04/11 9:48:00 Julian 0 No Bism[place] 1 tab, Memoria 10/325 oral 3-16 Omidvar Route: PO, l tablet 14:49: Drug Form: Nidia nn 00 TAB, Q4H, PRN Pain, Start date: 09/04/11 9:49:00, Stop date: 10/04/11 9:48:00 Julian 0 No [place]ism[place] 1 tab, Memoria 10/325 oral 3-16 Omidvar Route: PO, l tablet 14:49: Drug Form: Nidia nn 00 TAB, Q4H, PRN Pain, Start date: 09/04/11 9:49:00, Stop date: 10/04/11 9:48:00 Julian 0 No [place]ism[place] 1 tab, Memoria 10/325 oral 3-16 Omidvar Route: PO, l tablet 14:49: Drug Form: Nidia nn 00 TAB, Q4H, PRN Pain, Start date: 09/04/11 9:49:00, Stop date: 10/04/11 9:48:00 Julian 0 No [place]ism[place] 1 tab, Memoria 10/325 oral 3-16 Omidvar Route: PO, l tablet 14:49: Drug Form: Nidia nn 00 TAB, Q4H, PRN Pain, Start date: 09/04/11 9:49:00, Stop date: 10/04/11 9:48:00 labetalol No Gregory F 5 mg, Mendoza janice 3-16 Puga Route: IV, l 14:40: ONCE, Start date: 09/04/11 9:40:00, Stop date: 09/04/11 9:40:00 labetalol No Gregory F 5 mg, Mendoza janice 3-16 Puga Route: IV, l 14:40: ONCE, Start date: 09/04/11 9:40:00, Stop date: 09/04/11 9:40:00 labetalol No Gregory F 5 mg, Mendoza janice 3-16 Puga Route: IV, l 14:40: ONCE, Start date: 09/04/11 9:40:00, Stop date: 09/04/11 9:40:00 labetalol 0 No Gregory F 5 mg, Mendoza janice 3-16 Puga Route: IV, l 14:40: ONCE, Start date: 09/04/11 9:40:00, Stop date: 09/04/11 9:40:00 labetalol 0 No Gregory F 5 mg, Mendoza janice 3-16 Puga Route: IV, l 14:40: ONCE, Start date: 09/04/11 9:40:00, Stop date: 09/04/11 9:40:00 labetalol No Gregory F 5 mg, Mendoza janice 3-16 Puga Route: IV, l 14:40: ONCE, Start date: 09/04/11 9:40:00, Stop date: 09/04/11 9:40:00 ondansetron No Hollie 4 mg, 2 Me moria 3-16 Beck mL, Route: l 13:37: Hayden IVP, Drug form: INJ, ONCE, PRN Nausea & [...] 1 day, Stop date: 09/05/11 8:36:00 hydromorpho 2011-0 No Rosalino 0.5 mg, Memoria ne 3-16 Kavon 0.25 mL, l 13:37: Route: Chester 00 IVP, Drug form: INJ, Q5Min, PRN Pain Score 4-6, Start date: 09/04/11 8:37:00, Duration: 5 doses or times, Stop date: Limited # of times ondansetron 2011- No Hollie 4 mg, 2 Me moria 3-16 Beck mL, Route: l 13:37: Hayden IVP, Drug Nidia nn 00 form: INJ, ONCE, PRN Nausea & Vomiting, Start date: 09/04/11 8:37:00 naloxone 2011-0 No Hollie 0.04 mg, Mendoza janice 3-16 Beck 0.1 mL, l 13:37: Hayden Route: Vin IVP, Drug form: INJ, Q2MIN, PRN Narcotic Reversal, Start date: 09/04/11 8:37:00, Duration: 8 doses or times, Stop date: Limited # of times meperidine 2011-0 No Hollie 12.5 mg, Me moria 3-16 Beck 0.5 mL, l 13:37: Hayden Route: Vin 00 IVP, Drug form: INJ, Q30Min, PRN Other -See Comment, For shivering, Start date: 09/04/11 8:37:00, Duration: 2 doses or times, Stop date: Limited # of times flumazenil 2011-0 No Hollie 0.2 mg, 2 M emoria 3-16 Beck mL, Route: l 13:37: Hayden IVP, Drug Nidia nn 00 form: INJ, PRN, PRN Benzodiaze pine Reversal, Initial dose, Start date: 09/04/11 8:37:00, Duration: 1 day, Stop date: 09/05/11 8:36:00 hydromorpho 2011-0 No Rosalino 0.5 mg, Memoria ne 3-16 Kavon 0.25 mL, l 13:37: Route: Vin 00 IVP, Drug form: INJ, Q5Min, PRN Pain Score 4-6, Start date: 09/04/11 8:37:00, Duration: 5 doses or times, Stop date: Limited # of times ondansetron No Hollie 4 mg, 2 Me [...] Beck 0.5 mL, l 13:37: Hayden Route: Chester 00 IVP, Drug form: INJ, Q30Min, PRN [...] 1 day, Stop date: 09/05/11 8:36:00 hydromorpho 2011-0 No Rosalino 0.5 mg, Memoria ne 3-16 Kavon 0.25 mL, l 13:37: Route: Chester 00 IVP, Drug form: INJ, Q5Min, PRN Pain Score 4-6, Start date: 09/04/11 8:37:00, Duration: 5 doses or times, Stop date: Limited # of times ondansetron No Hollie 4 mg, 2 Me moria 3-16 Beck mL, Route: l 13:37: Hayden IVP, Drug Nidia nn 00 form: INJ, ONCE, PRN Nausea & Vomiting, Start date: 09/04/11 8:37:00 naloxone No Hollie 0.04 mg, Mendoza janice 3-16 Beck 0.1 mL, l 13:37: Hayden Route: Chester IVP, Drug form: INJ, Q2MIN, PRN Narcotic Reversal, Start date: 09/04/11 8:37:00, Duration: 8 doses or times, Stop date: Limited # of times meperidine No Hollie 12.5 mg, Me moria 3-16 Beck 0.5 mL, l 13:37: Hayden Route: Vin IVP, Drug form: INJ, Q30Min, PRN Other [...] date: Limited # of times ondansetron No Hollie 4 mg, 2 Me moria 3-16 Beck mL, Route: l 13:37: Hayden IVP, Drug Nidia nn 00 form: INJ, ONCE, PRN Nausea & Vomiting, Start date: 09/04/11 8:37:00 naloxone 2011-0 No Hollie 0.04 mg, Mendoza janice 3-16 Beck 0.1 mL, l 13:37: Hayden Route: [place] IVP, Drug form: INJ, Q2MIN, PRN Narcotic Reversal, Start date: 09/04/11 8:37:00, Duration: 8 doses or times, Stop date: Limited # of times meperidine 2011- No Hollie 12.5 mg, Me moria 3-16 Beck 0.5 mL, l 13:37: Hayden Route: [place] 00 IVP, Drug form: INJ, Q30Min, PRN [...] date: Limited # of times ondansetron No Hollie 4 mg, 2 Me moria 3-16 Beck mL, Route: l 13:37: Hayden IVP, Drug Nidia nn 00 form: INJ, ONCE, PRN Nausea & Vomiting, Start date: 09/04/11 8:37:00 naloxone 2011-0 No Hollie 0.04 mg, Mendoza janice 3-16 Beck 0.1 mL, l 13:37: Hayden Route: [place] IVP, Drug form: INJ, Q2MIN, PRN Narcotic Reversal, Start date: 09/04/11 8:37:00, Duration: 8 doses or times, Stop date: Limited # of times meperidine 2011-0 No Hollie 12.5 mg, Me moria 3-16 Beck 0.5 mL, l 13:37: Hayden Route: [place] IVP, Drug form: INJ, Q30Min, PRN Other -See Comment, For shivering, Start date: 09/04/11 8:37:00, Duration: 2 doses or times, Stop date: Limited # of times flumazenil 2011- No Hollie 0.2 mg, 2 M emoria 3-16 Beck mL, Route: l 13:37: Hayden IVP, Drug Nidia 00 form: INJ, PRN, PRN Benzodiaze pine Reversal, Initial dose, Start date: 09/04/11 8:37:00, Duration: 1 day, Stop date: 09/05/11 8:36:00 hydromorpho 2011-0 No Rosalino 0.5 mg, Memoria ne 3-16 Kavon 0.25 mL, l 13:37: Route: Vin IVP, Drug form: INJ, Q5Min, PRN Pain Score 4-6, Start date: 09/04/11 8:37:00, Duration: 5 doses or times, Stop date: Limited # of times clindamycin 2011-0 No Eber L 600 mg, 4 Memoria 3-15 Anabelle mL, Route: l 16:00: IVPB, [place] [id number], Start date: 09/03/11 11:00:00, Duration: 30 day, Stop date: 10/03/11 8:00:00 clindamycin 2011-0 No Eber L 600 mg, 4 Memoria 3-15 Anabelle mL, Route: l 16:00: IVPB, [place] 00 [id number], Start date: 09/03/11 11:00:00, Duration: 30 day, Stop date: 10/03/11 8:00:00 clindamycin 2011-0 No Eber L 600 mg, 4 Memoria 3-15 Anabelle mL, Route: l 16:00: IVPB, [place] 00 [id number], Start date: 09/03/11 11:00:00, Duration: 30 day, Stop date: 10/03/11 8:00:00 clindamycin 2012-0 No Eber L 600 mg, 4 Memoria 3-15 Anabelle mL, Route: l 16:00: IVPB, [place] 00 [id number], Start date: 09/03/11 11:00:00, Duration: 30 day, Stop date: 10/03/11 8:00:00 clindamycin 2012-0 No Eber L 600 mg, 4 Memoria 3-15 Anabelle mL, Route: l 16:00: IVPB, [place] 00 [id number], Start date: 09/03/11 11:00:00, Duration: 30 day, Stop date: 10/03/11 8:00:00 clindamycin 2012-0 No Eber L 600 mg, 4 Memoria 3-15 Anabelle mL, Route: l 16:00: IVPB, Vin 00 [id number], Start date: 09/03/11 11:00:00, Duration: 30 day, Stop date: 10/03/11 8:00:00 potassium 2012-0 No B[place] 40 mEq, 2 M emoria chloride 3-15 Omidvar tab, l 13:39: Route: PO, Vin 00 Drug form: ERTAB, ONCE, Start date: 09/03/11 8:39:00, Stop date: 09/03/11 8:39:00 potassium 2012-0 No [place] 40 mEq, 2 M emoria chloride 3-15 Omidvar tab, l 13:39: Route: PO, Vin 00 Drug form: ERTAB, ONCE, Start date: 09/03/11 8:39:00, Stop date: 09/03/11 8:39:00 potassium 2012-0 No [place] 40 mEq, 2 M emoria chloride 3-15 Omidvar tab, l 13:39: Route: PO, Vin 00 Drug form: ERTAB, ONCE, Start date: 09/03/11 8:39:00, Stop date: 09/03/11 8:39:00 potassium 2012-0 No [place] 40 mEq, 2 M emoria chloride 3-15 Omidvar tab, l 13:39: Route: PO, [place] 00 Drug form: ERTAB, ONCE, Start date: 09/03/11 8:39:00, Stop date: 09/03/11 8:39:00 potassium 2012-0 No [place] 40 mEq, 2 M emoria chloride 3-15 Omidvar tab, l 13:39: Route: PO, Vin 00 Drug form: ERTAB, ONCE, Start date: 09/03/11 8:39:00, Stop date: 09/03/11 8:39:00 potassium 2011-0 No [place] 40 mEq, 2 M emoria chloride 3-15 Omidvar tab, l 13:39: Route: PO, Ivn 00 Drug form: ERTAB, ONCE, Start date: 09/03/11 8:39:00, Stop date: 09/03/11 8:39:00 Julian 5/325 2011-0 No Rosalino 1 tab, M emoria oral tablet - [facility] Route: PO, l 05:00: Drug Form: [place] 00 TAB, Q4H, Start date: 09/03/11 0:00:00, Duration: 30 day, Stop date: 10/02/11 20:00:00 Julian 5/325 2011-0 No Rosalino 1 tab, M emoria oral tablet - [facility] Route: PO, l 05:00: Drug Form: [place] 00 TAB, Q4H, Start date: 09/03/11 0:00:00, Duration: 30 day, Stop date: 10/02/11 20:00:00 Julian 5/325 2011-0 No Rosalino 1 tab, M emoria oral tablet - [facility] Route: PO, l 05:00: Drug Form: Vin 00 TAB, Q4H, Start date: 09/03/11 0:00:00, Duration: 30 day, Stop date: 10/02/11 20:00:00 Julian 5/325 2011-0 No Rosalino 1 tab, M emoria oral tablet 09-02 [facility] Route: PO, l 05:00: Drug Form: Vin 00 TAB, Q4H, Start date: 09/03/11 0:00:00, Duration: 30 day, Stop date: 10/02/11 20:00:00 Julian 5/325 2012-0 No Rosalino 1 tab, M emoria oral tablet 3-15 Kavon Route: PO, l 05:00: Drug Form: Vin 00 TAB, Q4H, Start date: 09/03/11 0:00:00, Duration: 30 day, Stop date: 10/02/11 20:00:00 Julian [id number] 2012-0 No Rosalino 1 tab, M emoria oral tablet 3-15 Kavon Route: PO, l 05:00: Drug Form: [place] 00 TAB, Q4H, Start date: 09/03/11 0:00:00, Duration: 30 day, Stop date: 10/02/11 20:00:00 Geodon 2012-0 No Eber L 120 mg, 3 Memoria 3-15 Anabelle cap, l 02:00: Route: PO, Vin 00 Drug form: CAP, Bedtime, Start date: 09/02/11 21:00:00, Duration: 30 day, Stop date: 10/01/11 21:00:00 trazodone 2012-0 No Eber L 200 mg, 4 Memoria 100 mg oral 3-15 Anabelle tab, l tablet 02:00: Route: PO, Nidia nn 00 Drug form: TAB, Bedtime, Start date: 09/02/11 21:00:00, Duration: 30 day, Stop date: 10/01/11 21:00:00 Geodon 2012-0 No Eber L 120 mg, 3 Memoria 3-15 Anabelle cap, l 02:00: Route: PO, Vin 00 Drug form: CAP, Bedtime, Start date: 09/02/11 21:00:00, Duration: 30 day, Stop date: 10/01/11 21:00:00 trazodone 2012-0 No Eber L 200 mg, 4 Memoria 100 mg oral 3-15 Anabelle tab, l tablet 02:00: Route: PO, Nidia nn 00 Drug form: TAB, Bedtime, Start date: 09/02/11 21:00:00, Duration: 30 day, Stop date: 10/01/11 21:00:00 Geodon 2012-0 No Eber L 120 mg, 3 Memoria 3-15 Anabelle cap, l 02:00: Route: PO, [place] 00 Drug form: CAP, Bedtime, Start date: 09/02/11 21:00:00, Duration: 30 day, Stop date: 10/01/11 21:00:00 trazodone 2012-0 No Eber L 200 mg, 4 Memoria 100 mg oral 3-15 Anabelle tab, l tablet 02:00: Route: PO, Nidia nn 00 Drug form: TAB, Bedtime, Start date: 09/02/11 21:00:00, Duration: 30 day, Stop date: 10/01/11 21:00:00 Geodon 2012-0 No Eber L 120 mg, 3 Memoria 3-15 Anabelle cap, l 02:00: Route: PO, Vin 00 Drug form: CAP, Bedtime, Start date: 09/02/11 21:00:00, Duration: 30 day, Stop date: 10/01/11 21:00:00 trazodone 2012-0 No Eber L 200 mg, 4 Memoria 100 mg oral 3-15 Anabelle tab, l tablet 02:00: Route: PO, Nidia nn 00 Drug form: TAB, Bedtime, Start date: 09/02/11 21:00:00, Duration: 30 day, Stop date: 10/01/11 21:00:00 Geodon 2012-0 No Eber L 120 mg, 3 Memoria 3-15 Anabelle cap, l 02:00: Route: PO, [place] 00 Drug form: CAP, Bedtime, Start date: 09/02/11 21:00:00, Duration: 30 day, Stop date: 10/01/11 21:00:00 trazodone 2012-0 No Eber L 200 mg, 4 Memoria 100 mg oral 3-15 Anabelle tab, l tablet 02:00: Route: PO, Nidia nn 00 Drug form: TAB, Bedtime, Start date: 09/02/11 21:00:00, Duration: 30 day, Stop date: 10/01/11 21:00:00 Geodon 2012-0 No Eber L 120 mg, 3 Memoria 3-15 Anabelle cap, l 02:00: Route: PO, [place] 00 Drug form: CAP, Bedtime, Start date: 09/02/11 21:00:00, Duration: 30 day, Stop date: 10/01/11 21:00:00 trazodone 2012-0 No Eber L 200 mg, 4 Memoria 100 mg oral 3-15 Anabelle tab, l tablet 02:00: Route: PO, Nidia nn 00 Drug form: TAB, Bedtime, Start date: 09/02/11 21:00:00, Duration: 30 day, Stop date: 10/01/11 21:00:00 Effexor XR 2012-0 No Eber L 75 mg, 1 Memoria 3-14 Anabelle cap, l 17:00: Route: PO, Vin 00 Drug form: ERCAP, Daily, Give qAM after today's dose., Start date: 09/02/11 12:00:00, Duration: 30 day, Stop date: 10/02/11 9:00:00 Effexor XR 2012-0 No Eber L 75 mg, 1 Memoria 3-14 Anabelle cap, l 17:00: Route: PO, Vin 00 Drug form: ERCAP, Daily, Give qAM after today's dose., Start date: 09/02/11 12:00:00, Duration: 30 day, Stop date: 10/02/11 9:00:00 Effexor XR 2012-0 No Eber L 75 mg, 1 Memoria 3-14 Anabelle cap, l 17:00: Route: PO, [place] 00 Drug form: ERCAP, Daily, Give qAM after today's dose., Start date: 09/02/11 12:00:00, Duration: 30 day, Stop date: 10/02/11 9:00:00 Effexor XR 2012-0 No Eber L 75 mg, 1 Memoria 3-14 Anabelle cap, l 17:00: Route: PO, Vin 00 Drug form: ERCAP, Daily, Give qAM after today's dose., Start date: 09/02/11 12:00:00, Duration: 30 day, Stop date: 10/02/11 9:00:00 Effexor XR 2012-0 No Eber L 75 mg, 1 Memoria 3-14 Anabelle cap, l 17:00: Route: PO, [place] 00 Drug form: ERCAP, Daily, Give qAM after today's dose., Start date: 09/02/11 12:00:00, Duration: 30 day, Stop date: 10/02/11 9:00:00 Effexor XR 2011-0 No Eber L 75 mg, 1 Memoria 09-01 Anabelle cap, l 17:00: Route: PO, Vin 00 Drug form: ERCAP, Daily, Give qAM after today's dose., Start date: 09/02/11 12:00:00, Duration: 30 day, Stop date: 10/02/11 9:00:00 Julian 5/325 2011-0 No Rosalino 1 tab, M emoria oral tablet 09-01 Kavon Route: PO, l 16:25: Drug Form: Vin 00 TAB, Q4H, PRN Pain, Start date: 09/02/11 11:25:00, Duration: 30 day, Stop date: 10/02/11 11:24:00 Julian 5/325 2011-0 No Rosalino 1 tab, M emoria oral tablet 09-01 Kavon Route: PO, l 16:25: Drug Form: Vin 00 TAB, Q4H, PRN Pain, Start date: 09/02/11 11:25:00, Duration: 30 day, Stop date: 10/02/11 11:24:00 Julian 5/325 2011-0 No Rosalino 1 tab, M emoria oral tablet 09-01 Kavon Route: PO, l 16:25: Drug Form: [place] 00 TAB, Q4H, PRN Pain, Start date: 09/02/11 11:25:00, Duration: 30 day, Stop date: 10/02/11 11:24:00 Julian 5/325 2011-0 No Rosalino 1 tab, M emoria oral tablet 09-01 Kavon Route: PO, l 16:25: Drug Form: Vin 00 TAB, Q4H, PRN Pain, Start date: 09/02/11 11:25:00, Duration: 30 day, Stop date: 10/02/11 11:24:00 Julian 5/325 2011-0 No Rosalino 1 tab, M emoria oral tablet 09-01 Kavon Route: PO, l 16:25: Drug Form: Vin 00 TAB, Q4H, PRN Pain, Start date: 09/02/11 11:25:00, Duration: 30 day, Stop date: 10/02/11 11:24:00 Julian 5/325 2011-0 No Rosalino 1 tab, M emoria oral tablet 3-14 Kavon Route: PO, l 16:25: Drug Form: Vin 00 TAB, Q4H, PRN Pain, Start date: 09/02/11 11:25:00, Duration: 30 day, Stop date: 10/02/11 11:24:00 magnesium 2011-0 No [place] 4 gm, 50 Me moria sulfate 3-14 Omidvar mL, Route: l 16:15: IVPB, Drug [place] 00 form: INJ, ONCE, Start date: 09/02/11 11:15:00, Stop date: 09/02/11 11:15:00 magnesium 2011-0 No [place] 4 gm, 50 Me moria sulfate 3-14 Omidvar mL, Route: l 16:15: IVPB, Drug [place] 00 form: INJ, ONCE, Start date: 09/02/11 11:15:00, Stop date: 09/02/11 11:15:00 magnesium 2011-0 No [place] 4 gm, 50 Me moria sulfate 3-14 Omidvar mL, Route: l 16:15: IVPB, Drug Vin 00 form: INJ, ONCE, Start date: 09/02/11 11:15:00, Stop date: 09/02/11 11:15:00 magnesium 2011-0 No [place] 4 gm, 50 Me moria sulfate 3-14 Omidvar mL, Route: l 16:15: IVPB, Drug [place] 00 form: INJ, ONCE, Start date: 09/02/11 11:15:00, Stop date: 09/02/11 11:15:00 magnesium 2011-0 No [place] 4 gm, 50 Me moria sulfate 3-14 Omidvar mL, Route: l 16:15: IVPB, Drug [place] 00 form: INJ, ONCE, Start date: 09/02/11 11:15:00, Stop date: 09/02/11 11:15:00 magnesium 2011-0 No [place] 4 gm, 50 Me moria sulfate 3-14 Omidvar mL, Route: l 16:15: IVPB, Drug [place] 00 form: INJ, ONCE, Start date: 09/02/11 11:15:00, Stop date: 09/02/11 11:15:00 Lovenox 2012-0 No Missael 40 mg, 0.4 Mem oria 3-14 Movva mL, Route: l 14:00: SUB-Q, Vin 00 Drug form: INJ, Daily, Start date: 09/02/11 9:00:00, Duration: 30 day, Stop date: 10/01/11 9:00:00 vancomycin 2011-0 No Eber L 1 gm, Memoria 3-14 Anabelle Route: l 14:00: IVPB, Drug [place] 00 form: INJ, [id number], Start date: 09/02/11 9:00:00, Duration: 30 day, Stop date: 10/01/11 21:00:00 Lovenox 2011-0 No Missael 40 mg, 0.4 Mem oria 3-14 Movva mL, Route: l 14:00: SUB-Q, Vin Drug form: INJ, Daily, Start date: 09/02/11 9:00:00, Duration: 30 day, Stop date: 10/01/11 9:00:00 vancomycin 2011-0 No Eber L 1 gm, Memoria 3-14 Anabelle Route: l 14:00: IVPB, Drug [place] 00 form: INJ, [id number], Start date: 09/02/11 9:00:00, Duration: 30 day, Stop date: 10/01/11 21:00:00 Lovenox 2011-0 No Missael 40 mg, 0.4 Mem oria 3-14 Movva mL, Route: l 14:00: SUB-Q, [place] 00 Drug form: INJ, Daily, Start date: 09/02/11 9:00:00, Duration: 30 day, Stop date: 10/01/11 9:00:00 vancomycin 2011-0 No Eber L 1 gm, Memoria 3-14 Anabelle Route: l 14:00: IVPB, Drug [place] 00 form: INJ, [id number], Start date: 09/02/11 9:00:00, Duration: 30 day, Stop date: 10/01/11 21:00:00 Lovenox 2012-0 No Missael 40 mg, 0.4 Mem oria 3-14 Movva mL, Route: l 14:00: SUB-Q, Vin 00 Drug form: INJ, Daily, Start date: 09/02/11 9:00:00, Duration: 30 day, Stop date: 10/01/11 9:00:00 vancomycin 2011-0 No Eber L 1 gm, Memoria 3-14 Anabelle Route: l 14:00: IVPB, Drug Vin 00 form: INJ, [id number], Start date: 09/02/11 9:00:00, Duration: 30 day, Stop date: 10/01/11 21:00:00 Lovenox 2012-0 No Missael 40 mg, 0.4 Mem oria 3-14 Movva mL, Route: l 14:00: SUB-Q, Vin Drug form: INJ, Daily, Start date: 09/02/11 9:00:00, Duration: 30 day, Stop date: 10/01/11 9:00:00 vancomycin 2011-0 No Eber L 1 gm, Memoria 3-14 Anabelle Route: l 14:00: IVPB, Drug [place] 00 form: INJ, [id number], Start date: 09/02/11 9:00:00, Duration: 30 day, Stop date: 10/01/11 21:00:00 Lovenox 2012-0 No Missael 40 mg, 0.4 Mem oria 3-14 Movva mL, Route: l 14:00: SUB-Q, [place] Drug form: INJ, Daily, Start date: 09/02/11 9:00:00, Duration: 30 day, Stop date: 10/01/11 9:00:00 vancomycin 2011-0 No Eber L 1 gm, Memoria 3-14 Anabelle Route: l 14:00: IVPB, Drug [place] 00 form: INJ, [id number], Start date: 09/02/11 9:00:00, Duration: 30 day, Stop date: 10/01/11 21:00:00 clindamycin 2011-0 No Eber L 600 mg, 4 Memoria (SCIP) 3-14 Anabelle mL, Route: l 10:00: IVPB, Vin 00 [id number], Start date: 09/02/11 5:00:00, Duration: 3 doses or times, Stop date: 09/02/11 21:00:00 clindamycin 2012-0 No Eber L 600 mg, 4 Memoria (SCIP) 3-14 Anabelle mL, Route: l 10:00: IVPB, Vin 00 [id number], Start date: 09/02/11 5:00:00, Duration: 3 doses or times, Stop date: 09/02/11 21:00:00 clindamycin 2012-0 No Eber L 600 mg, 4 Memoria (SCIP) 3-14 Anabelle mL, Route: l 10:00: IVPB, [place] 00 [id number], Start date: 09/02/11 5:00:00, Duration: 3 doses or times, Stop date: 09/02/11 21:00:00 clindamycin 2012-0 No Eebr L 600 mg, 4 Memoria (SCIP) 3-14 Anabelle mL, Route: l 10:00: IVPB, Vin 00 [id number], Start date: 09/02/11 5:00:00, Duration: 3 doses or times, Stop date: 09/02/11 21:00:00 clindamycin 2012-0 No Eber L 600 mg, 4 Memoria (SCIP) 3-14 Anabelle mL, Route: l 10:00: IVPB, Vin 00 [id number], Start date: 09/02/11 5:00:00, Duration: 3 doses or times, Stop date: 09/02/11 21:00:00 clindamycin 2012-0 No Eber L 600 mg, 4 Memoria (SCIP) 3-14 Anabelle mL, Route: l 10:00: IVPB, Vin 00 [id number], Start date: 09/02/11 5:00:00, Duration: 3 doses or times, Stop date: 09/02/11 21:00:00 clindamycin 2012-0 No Yury 600 mg, 4 Memoria (SCIP) 3-14 Silverio mL, Route: l 04:00: Connally IVPB, Vin 00 [id number], Start date: 09/01/11 23:00:00, Duration: 3 doses or times, Stop date: 09/02/11 15:00:00 clindamycin 2012-0 No Yury 600 mg, 4 Memoria (SCIP) 3-14 Silverio mL, Route: l 04:00: Connally IVPB, Vin 00 [id number], Start date: 09/01/11 23:00:00, Duration: 3 doses or times, Stop date: 09/02/11 15:00:00 clindamycin 2011-0 No Yury 600 mg, 4 Memoria (SCIP) 3-14 Silverio mL, Route: l 04:00: Connally IVPB, [place] 00 [id number], Start date: 09/01/11 23:00:00, Duration: 3 doses or times, Stop date: 09/02/11 15:00:00 clindamycin 2012-0 No Yury 600 mg, 4 Memoria (SCIP) 3-14 Silverio mL, Route: l 04:00: Connally IVPB, [place] 00 [id number], Start date: 09/01/11 23:00:00, Duration: 3 doses or times, Stop date: 09/02/11 15:00:00 clindamycin 2012-0 No Yury 600 mg, 4 Memoria (SCIP) 3-14 Silverio mL, Route: l 04:00: Connally IVPB, [place] 00 [id number], Start date: 09/01/11 23:00:00, Duration: 3 doses or times, Stop date: 09/02/11 15:00:00 clindamycin 2012-0 No Yury 600 mg, 4 Memoria (SCIP) 3-14 Silverio mL, Route: l 04:00: Connally IVPB, [place] 00 [id number], Start date: 09/01/11 23:00:00, Duration: 3 doses or times, Stop date: 09/02/11 15:00:00 insulin 2012-0 No Bismark 15 unit, Mendoza janice isophane[employer] 3-14 Omidvar 0.15 mL, l H 02:00: Route: [place] 00 SUB-Q, Drug form: INJ, Q12H, Start date: 09/01/11 21:00:00, Stop date: 10/01/11 9:00:00 insulin 2012-0 No [place]ark 15 unit, Mendoza janice isophane-[employer]IST[employer] 3-14 Omidvar 0.15 mL, l H 02:00: Route: Vin SUB-Q, Drug form: INJ, Q12H, Start date: 09/01/11 21:00:00, Stop date: 10/01/11 9:00:00 insulin 2011-0 No [place] 15 unit, Mendoza janice isophane-[employer] ASSISTANT 3-14 Omidvar 0.15 mL, l H 02:00: Route: Vin SUB-Q, Drug form: INJ, Q12H, Start date: 09/01/11 21:00:00, Stop date: 10/01/11 9:00:00 insulin 2011-0 No [place] 15 unit, Mendoza janice isophane-[employer] ASSISTANT 3-14 Omidvar 0.15 mL, l H 02:00: Route: Vin SUB-Q, Drug form: INJ, Q12H, Start date: 09/01/11 21:00:00, Stop date: 10/01/11 9:00:00 insulin 2011-0 No [place] 15 unit, Mendoza janice isophane-[employer] OFF[employer] ASSISTANT 3-14 Omidvar 0.15 mL, l H 02:00: Route: Vin SUB-Q, Drug form: INJ, Q12H, Start date: 09/01/11 21:00:00, Stop date: 10/01/11 9:00:00 insulin 2011-0 No [place] 15 unit, Mendoza janice isophane-[employer] OFF[employer] ASSISTANT 3-14 Omidvar 0.15 mL, l H 02:00: Route: Vin SUB-Q, Drug form: INJ, Q12H, Start date: 09/01/11 21:00:00, Stop date: 10/01/11 9:00:00 labetalol No Mariaelena-Corea 5 mg, Me moria 3-14 Barbra Route: l 01:07: Feliciano IVP, Vin Q5Min, PRN Elevated BP, Start date: 09/01/11 20:07:00, Duration: 5 doses or times, Stop date: Limited # of times hydrALAZINE No Mariaelena-Ocrea 5 mg, Memoria 3-14 Barbra Route: l 01:07: Feliciano IVP, [place] 00 Q5Min, PRN Elevated BP, Start date: [...] Barbra Route: l 01:07: Feliciano IVP, ONCE, [place] 00 PRN Nausea & Vomiting, Start date: 09/01/11 20:07:00 labetalol No Mariaelena-Corea 5 mg, Me moria 3-14 Barbra Route: l 01:07: Feliciano IVP, Vin 00 Q5Min, PRN Elevated BP, Start date: 09/01/11 20:07:00, Duration: 5 doses or times, Stop date: Limited # of times hydrALAZINE No Mariaelena-Corea 5 mg, Memoria 3-14 Barbra Route: l 01:07: Feliciano IVP, [place] 00 Q5Min, PRN Elevated BP, Start date: 09/01/11 20:07:00, Duration: 4 doses or times, Stop date: Limited # of times hydromorpho No Mariaelena-Corea 0.5 mg, Memoria ne 3-14 Barbra Route: l 01:07: Feliciano IVP, [place] 00 Q5Min, PRN Pain Score 4-6, Start date: 09/01/11 20:07:00, Duration: 5 doses or times, Stop date: Limited # of times naloxone No Mariaelena-Corea 0.04 mg, Memoria 3-14 Barbra Route: l 01:07: Feliciano IVP, [place] 00 Q2MIN, PRN Narcotic Reversal, Start date: [...] Barbra Route: l 01:07: Feliciano IVP, ONCE, [place] 00 PRN Nausea & Vomiting, Start date: 09/01/11 20:07:00 labetalol No Mariaelena-Corea 5 mg, Me moria 3-14 Barbra Route: l 01:07: Feliciano IVP, Vin 00 Q5Min, PRN Elevated BP, Start date: 09/01/11 20:07:00, Duration: 5 doses or times, Stop date: Limited # of times hydrALAZINE No Mariaelena-Corea 5 mg, Memoria 3-14 Barbra Route: l 01:07: Feliciano IVP, [place] 00 Q5Min, PRN Elevated BP, Start date: [...] [place]bra Route: l 01:07: Feliciano IVP, ONCE, [place] 00 PRN Nausea & Vomiting, Start date: 09/01/11 20:07:00 labetalol No Mariaelena-Corea 5 mg, Me moria 3-14 [place]bra Route: l 01:07: Feliciano IVP, [place] 00 Q5Min, PRN Elevated BP, Start date: 09/01/11 20:07:00, Duration: 5 doses or times, Stop date: Limited # of times hydrALAZINE No Mariaelena-Corea 5 mg, Memoria 3-14 [place]bra Route: l 01:07: Feliciano IVP, [place] 00 Q5Min, PRN Elevated BP, Start date: [...] 3-14 Barbra Route: l 01:07: Feliciano IVP, [place] 00 Q2MIN, PRN Narcotic Reversal, Start date: [...] [place]bra Route: l 01:07: Feliciano IVP, ONCE, [place] 00 PRN Nausea & Vomiting, Start date: 09/01/11 20:07:00 labetalol No Mariaelena-Corea 5 mg, Me moria 3-14 Barbra Route: l 01:07: Feliciano IVP, Vin 00 Q5Min, PRN Elevated BP, Start date: 09/01/11 20:07:00, Duration: 5 doses or times, Stop date: Limited # of times hydrALAZINE No Mariaelena-Corea 5 mg, Memoria 3-14 Barbra Route: l 01:07: Feliciano IVP, [place] 00 Q5Min, PRN Elevated BP, Start date: [...] Nausea & Vomiting, Start date: 09/01/11 20:07:00 labetalol No Mariaelena-Corea 5 mg, Me moria [...] 01:00: IVPB, Drug Vin 00 form: INJ, [id number], Start date: 09/01/11 20:00:00, Duration: 30 day, Stop date: 10/01/11 8:00:00 vancomycin No Mele 1 gm, Mem oria 3-14 Gauvain Route: l 01:00: IVPB, Drug [place] 00 form: INJ, [id number], Start date: 09/01/11 20:00:00, Duration: 30 day, Stop date: 10/01/11 8:00:00 vancomycin No Mele 1 gm, Mem oria 3-14 G[place]vain Route: l 01:00: IVPB, Drug Vin 00 form: INJ, [id number], Start date: 09/01/11 20:00:00, Duration: 30 day, Stop date: 10/01/11 8:00:00 vancomycin No Mele 1 gm, Mem oria 3-14 G[place]vain Route: l 01:00: IVPB, Drug [place] 00 form: INJ, [id number], Start date: 09/01/11 20:00:00, Duration: 30 day, Stop date: 10/01/11 8:00:00 vancomycin 0 No Mele 1 gm, Mem oria 3-14 Gauvain Route: l 01:00: IVPB, Drug Vin 00 form: INJ, [id number], Start date: 09/01/11 20:00:00, Duration: 30 day, Stop date: 10/01/11 8:00:00 vancomycin 0 No Mele 1 gm, Mem oria 3-14 [place] Route: l 01:00: IVPB, Drug [place] 00 form: INJ, [id number], Start date: 09/01/11 20:00:00, Duration: 30 day, Stop date: 10/01/11 8:00:00 Lactated 2011-0 No Charbel A 1,000 mL, Memoria Ringers IV 3-14 Wong Rate: 125 l 1,000 mL 00:55: ml/hr, Vin 00 Infuse over: 8 hr, Route: IV, Dosing Weight 68.2 kg, Total Volume: 1,000, Start date: 09/01/11 19:55:00, Duration: 30 day, Stop date: 10/01/11 19:54:00 Lactated 2011-0 No Charbel A 1,000 mL, Memoria Ringers IV 3-14 Wong Rate: 125 l 1,000 mL 00:55: ml/hr, Vin 00 Infuse over: 8 hr, Route: IV, Dosing Weight 68.2 kg, Total Volume: 1,000, Start date: 09/01/11 19:55:00, Duration: 30 day, Stop date: 10/01/11 19:54:00 Lactated 2011-0 No Charbel A 1,000 mL, Memoria Ringers IV 3-14 Wong Rate: 125 l 1,000 mL 00:55: ml/hr, [place] 00 Infuse over: 8 hr, Route: IV, Dosing Weight 68.2 kg, Total Volume: 1,000, Start date: 09/01/11 19:55:00, Duration: 30 day, Stop date: 10/01/11 19:54:00 Lactated 2011-0 No Charbel A 1,000 mL, Memoria Ringers IV 3-14 Wong Rate: 125 l 1,000 mL 00:55: ml/hr, [place] 00 Infuse over: 8 hr, Route: IV, Dosing Weight 68.2 kg, Total Volume: 1,000, Start date: 09/01/11 19:55:00, Duration: 30 day, Stop date: 10/01/11 19:54:00 Lactated 2011-0 No Charbel A 1,000 mL, Memoria Ringers IV 3-14 Wong Rate: 125 l 1,000 mL 00:55: ml/hr, [place] 00 Infuse over: 8 hr, Route: IV, Dosing Weight 68.2 kg, Total Volume: 1,000, Start date: 09/01/11 19:55:00, Duration: 30 day, Stop date: 10/01/11 19:54:00 Lactated 2011-0 No Charbel A 1,000 mL, Memoria Ringers IV 3-14 Wong Rate: 125 l 1,000 mL 00:55: ml/hr, Vin 00 Infuse over: 8 hr, Route: IV, Dosing Weight 68.2 kg, Total Volume: 1,000, Start date: 09/01/11 19:55:00, Duration: 30 day, Stop date: 10/01/11 19:54:00 vancomycin 2011-0 No Missael 1 gm, Memor ia 3-14 Movva Route: l 00:00: IVPB, Drug Vin 00 form: INJ, [id number], Start date: 09/01/11 19:00:00, Duration: 30 day, Stop date: 10/01/11 7:00:00 vancomycin 2011-0 No Missael 1 gm, Memor ia 3-14 Movva Route: l 00:00: IVPB, Drug [place] 00 form: INJ, [id number], Start date: 09/01/11 19:00:00, Duration: 30 day, Stop date: 10/01/11 7:00:00 vancomycin 2011-0 No Missael 1 gm, Memor ia 3-14 Movva Route: l 00:00: IVPB, Drug Vin 00 form: INJ, [id number], Start date: 09/01/11 19:00:00, Duration: 30 day, Stop date: 10/01/11 7:00:00 vancomycin 2011-0 No Missael 1 gm, Memor ia 3-14 Movva Route: l 00:00: IVPB, Drug Vin 00 form: INJ, [id number], Start date: 09/01/11 19:00:00, Duration: 30 day, Stop date: 10/01/11 7:00:00 vancomycin 2011-0 No Missael 1 gm, Memor ia 3-14 Movva Route: l 00:00: IVPB, Drug [place] 00 form: INJ, [id number], Start date: 09/01/11 19:00:00, Duration: 30 day, Stop date: 10/01/11 7:00:00 vancomycin 2012-0 No Missael 1 gm, Memor ia 3-14 Movva Route: l 00:00: IVPB, Drug [place] 00 form: INJ, [id number], Start date: 09/01/11 19:00:00, Duration: 30 day, Stop date: 10/01/11 7:00:00 insulin 2011-0 No Missael 6 unit, Memori a aspart 3-13 Movva 0.06 mL, l 23:23: Route: Vin SUB-Q, Drug form: SOLN, TID-Before Meals, PRN Blood Glucose Results, Start date: 09/01/11 18:23:00, Duration: 30 day, Stop date: 10/01/11 18:22:00 glucagon 2011-0 No Missael 1 mg, Memoria 3-13 Movva Route: IM, l 23:23: Drug form: [place] PDR/INJ, PRN, PRN Blood Glucose Results, Start date: 09/01/11 18:23:00, Duration: 30 day, Stop date: 10/01/11 18:22:00 Dextrose 2011-0 No Missael 25 gm, 50 Mem oria 50% Syringe 3-13 Movva mL, Route: l 23:23: IVP, Drug Form: INJ, PRN, PRN Blood Glucose Results, Start date: 09/01/11 18:23:00, Duration: 30 day, Stop date: 10/01/11 18:22:00 insulin 2011-0 No Missael 6 unit, Memori a aspart 3-13 Movva 0.06 mL, l 23:23: Route: [place] SUB-Q, Drug form: SOLN, TID-Before Meals, PRN Blood Glucose Results, Start date: 09/01/11 18:23:00, Duration: 30 day, Stop date: 10/01/11 18:22:00 glucagon 2011-0 No Missael 1 mg, Memoria 3-13 Movva Route: IM, l 23:23: Drug form: Vin PDR/INJ, PRN, PRN Blood Glucose Results, Start date: 09/01/11 18:23:00, Duration: 30 day, Stop date: 10/01/11 18:22:00 Dextrose 2012-0 No [place]ael 25 gm, 50 Mem oria 50% Syringe 3-13 Movva mL, Route: l 23:23: IVP, Drug Vin 00 Form: INJ, PRN, PRN Blood Glucose Results, Start date: 09/01/11 18:23:00, Duration: 30 day, Stop date: 10/01/11 18:22:00 insulin 2011-0 No Missael 6 unit, Memori a aspart 3-13 Movva 0.06 mL, l 23:23: Route: Vin 00 SUB-Q, Drug form: SOLN, TID-Before Meals, PRN Blood Glucose Results, Start date: 09/01/11 18:23:00, Duration: 30 day, Stop date: 10/01/11 18:22:00 glucagon 2012-0 No Missael 1 mg, Memoria 3-13 Movva Route: IM, l 23:23: Drug form: [place] 00 PDR/INJ, PRN, PRN Blood Glucose Results, Start date: 09/01/11 18:23:00, Duration: 30 day, Stop date: 10/01/11 18:22:00 Dextrose 2011-0 No [place] 25 gm, 50 Mem oria 50% Syringe 3-13 Movva mL, Route: l 23:23: IVP, Drug [place] 00 Form: INJ, PRN, PRN Blood Glucose Results, Start date: 09/01/11 18:23:00, Duration: 30 day, Stop date: 10/01/11 18:22:00 insulin 2011-0 No Missael 6 unit, Memori a aspart 3-13 Movva 0.06 mL, l 23:23: Route: [place] 00 SUB-Q, Drug form: SOLN, TID-Before Meals, PRN Blood Glucose Results, Start date: 09/01/11 18:23:00, Duration: 30 day, Stop date: 10/01/11 18:22:00 glucagon 2012-0 No Missael 1 mg, Memoria 3-13 Movva Route: IM, l 23:23: Drug form: [place] 00 PDR/INJ, PRN, PRN Blood Glucose Results, Start date: 09/01/11 18:23:00, Duration: 30 day, Stop date: 10/01/11 18:22:00 Dextrose 2012-0 No [place] 25 gm, 50 Mem oria 50% Syringe 3-13 Movva mL, Route: l 23:23: IVP, Drug Vin 00 Form: INJ, PRN, PRN Blood Glucose Results, Start date: 09/01/11 18:23:00, Duration: 30 day, Stop date: 10/01/11 18:22:00 insulin 2012-0 No [place]ael 6 unit, Memori a aspart 3-13 Movva 0.06 mL, l 23:23: Route: [place] 00 SUB-Q, Drug form: SOLN, TID-Before Meals, [...] Movva mL, Route: l 23:23: IVP, Drug [place] 00 Form: INJ, PRN, PRN Blood Glucose Results, Start date: 09/01/11 18:23:00, Duration: 30 day, Stop date: 10/01/11 18:22:00 insulin 2012-0 No [place]ael 6 unit, Memori a aspart 3-13 Movva 0.06 mL, l 23:23: Route: [place] 00 SUB-Q, Drug form: SOLN, TID-Before Meals, PRN Blood Glucose Results, Start date: 09/01/11 18:23:00, Duration: 30 day, Stop date: 10/01/11 18:22:00 glucagon 2012-0 No [place]ael 1 mg, Memoria 3-13 Movva Route: IM, l 23:23: Drug form: Vin 00 PDR/INJ, PRN, PRN Blood Glucose Results, Start date: 09/01/11 18:23:00, Duration: 30 day, Stop date: 10/01/11 18:22:00 Dextrose 2012-0 No [place] 25 gm, 50 Mem oria 50% Syringe 3-13 Movva mL, Route: l 23:23: IVP, Drug Vin 00 Form: INJ, PRN, PRN Blood Glucose Results, Start date: 09/01/11 18:23:00, Duration: 30 day, Stop date: 10/01/11 18:22:00 morphine 2012-0 No Daja Shannan 2 mg, 1 M emoria Sulfate 3-13 Beni mL, Route: l 21:14: IVP, Drug Vin 00 form: INJ, Q4H, PRN Severe Pain, Start date: 09/01/11 16:14:00, Stop date: 10/01/11 16:13:00 morphine 2012-0 No Daja Shannan 2 mg, 1 M emoria Sulfate 3-13 Beni mL, Route: l 21:14: IVP, Drug [place] 00 form: INJ, Q4H, PRN Severe Pain, Start date: 09/01/11 16:14:00, Stop date: 10/01/11 16:13:00 morphine 2012-0 No Daja Shannan 2 mg, 1 M emoria Sulfate 3-13 Beni mL, Route: l 21:14: IVP, Drug [place] 00 form: INJ, Q4H, PRN Severe Pain, Start date: 09/01/11 16:14:00, Stop date: 10/01/11 16:13:00 morphine 2012-0 No Daja Shannan 2 mg, 1 M emoria Sulfate 3-13 Beni mL, Route: l 21:14: IVP, Drug Vin 00 form: INJ, Q4H, PRN Severe Pain, Start date: 09/01/11 16:14:00, Stop date: 10/01/11 16:13:00 morphine 2012-0 No Daja Shannan 2 mg, 1 M emoria Sulfate 3-13 Beni mL, Route: l 21:14: IVP, Drug Vin 00 form: INJ, Q4H, PRN Severe Pain, Start date: 09/01/11 16:14:00, Stop date: 10/01/11 16:13:00 morphine 2012-0 No Daja Shannan 2 mg, 1 M emoria Sulfate 3-13 Beni mL, Route: l 21:14: IVP, Drug Vin 00 form: INJ, Q4H, PRN Severe Pain, Start date: 09/01/11 16:14:00, Stop date: 10/01/11 16:13:00 Lactated 2012-0 No Cesar 1,000 mL, Me moria Ringers IV 3-13 Manuel Creola Rate: 100 l 1,000 mL 19:03: ml/hr, [place] 00 Infuse over: 10 hr, Route: IV, Dosing Weight 68.182 kg, Total Volume: 1,000, Start date: 09/01/11 14:03:00, Duration: 30 day, Stop date: 10/01/11 14:02:00 Lactated 2012-0 No Cesar 1,000 mL, Me moria Ringers IV 3-13 Manuel Creola Rate: 100 l 1,000 mL 19:03: ml/hr, Vin 00 Infuse over: 10 hr, Route: IV, Dosing Weight 68.182 kg, Total Volume: 1,000, Start date: 09/01/11 14:03:00, Duration: 30 day, Stop date: 10/01/11 14:02:00 Lactated 2012-0 No Cesar 1,000 mL, Me moria Ringers IV 3-13 Manuel Creola Rate: 100 l 1,000 mL 19:03: ml/hr, Vin 00 Infuse over: 10 hr, Route: IV, Dosing Weight 68.182 kg, Total Volume: 1,000, Start date: 09/01/11 14:03:00, Duration: 30 day, Stop date: 10/01/11 14:02:00 Lactated 2012-0 No Cesar 1,000 mL, Me moria Ringers IV 3-13 Manuel Creola Rate: 100 l 1,000 mL 19:03: ml/hr, Vin 00 Infuse over: 10 hr, Route: IV, Dosing Weight 68.182 kg, Total Volume: 1,000, Start date: 09/01/11 14:03:00, Duration: 30 day, Stop date: 10/01/11 14:02:00 Lactated 2012-0 No Cesar 1,000 mL, Me moria Ringers IV 3-13 Manuel Creola Rate: 100 l 1,000 mL 19:03: ml/hr, Vin 00 Infuse over: 10 hr, Route: IV, Dosing Weight 68.182 kg, Total Volume: 1,000, Start date: 09/01/11 14:03:00, Duration: 30 day, Stop date: 10/01/11 14:02:00 Lactated 2012-0 No Cesar 1,000 mL, Me moria Ringers IV 3-13 Manuel Creola Rate: 100 l 1,000 mL 19:03: ml/hr, Vin 00 Infuse over: 10 hr, Route: IV, Dosing Weight 68.182 kg, Total Volume: 1,000, Start date: 09/01/11 14:03:00, Duration: 30 day, Stop date: 10/01/11 14:02:00 morphine 2012-0 No [place] 4 mg, 1 Memori a Sulfate 3-13 [place] mL, Route: l 17:13: Gurinder IVP, Drug Jake n 00 form: INJ, ONCE, Start date: 09/01/11 12:13:00, Stop date: 09/01/11 12:13:00 morphine 2012-0 No [place] 4 mg, 1 Memori a Sulfate 3-13 [place] mL, Route: l 17:13: Gurinder IVP, Drug Jake n 00 form: INJ, ONCE, Start date: 09/01/11 12:13:00, Stop date: 09/01/11 12:13:00 morphine 2012-0 No [place] 4 mg, 1 Memori a Sulfate 3-13 [place] mL, Route: l 17:13: Gurinder IVP, Drug Jake n 00 form: INJ, ONCE, Start date: 09/01/11 12:13:00, Stop date: 09/01/11 12:13:00 morphine 2012-0 No [place] 4 mg, 1 Memori a Sulfate 3-13 [place] mL, Route: l 17:13: Gurinder IVP, Drug Jake n 00 form: INJ, ONCE, Start date: 09/01/11 12:13:00, Stop date: 09/01/11 12:13:00 morphine 2012-0 No [place] 4 mg, 1 Memori a Sulfate 3-13 [place] mL, Route: l 17:13: Gurinder IVP, Drug Jake n 00 form: INJ, ONCE, Start date: 09/01/11 12:13:00, Stop date: 09/01/11 12:13:00 morphine 2012-0 No [place] 4 mg, 1 [...] doses or times, Stop date: 09/02/11 6:41:00 Lactated 2012-0 No [place] 2,000 mL, Mendoza janice Ringers 3-13 [place] Rate: 100 l (Bolus) IV 15:42: Gurinder ml/hr, Her braden 2,000 mL 00 Infuse over: 20 hr, Route: IV, Dosing Weight 68.18 kg, Total Volume: 2,000, Start date: 09/01/11 10:42:00, Duration: 1 doses or times, Stop date: 09/02/11 6:41:00 Lactated 2012-0 No [place] 2,000 mL, Mendoza janice Ringers 3-13 [place] Rate: 100 l (Bolus) IV 15:42: Gurinder ml/hr, Her braden 2,000 mL 00 Infuse over: 20 hr, Route: IV, Dosing Weight 68.18 kg, Total Volume: 2,000, Start date: 09/01/11 10:42:00, Duration: 1 doses or times, Stop date: 09/02/11 6:41:00 Lactated 2012-0 No [place] 2,000 mL, Mendoza janice Ringers 3-13 [place] Rate: 100 l (Bolus) IV 15:42: Gurinder ml/hr, Her braden 2,000 mL 00 Infuse over: 20 hr, Route: IV, Dosing Weight 68.18 kg, Total Volume: 2,000, Start date: 09/01/11 10:42:00, Duration: 1 doses or times, Stop date: 09/02/11 6:41:00 Lactated 2012-0 No [place] 2,000 mL, Mendoza janice Ringers 3-13 [place] Rate: 100 l (Bolus) IV 15:42: Gurinder ml/hr, Her braden 2,000 mL 00 Infuse over: 20 hr, Route: IV, Dosing Weight 68.18 kg, Total Volume: 2,000, Start date: 09/01/11 10:42:00, Duration: 1 doses or times, Stop date: 09/02/11 6:41:00 Lactated 2011-0 No [place] 2,000 mL, Mendoza [...] date: 09/01/11 10:28:00, Stop date: 09/01/11 10:28:00 Insulin 2012-0 No [place] 8 unit, Memoria regular 3-13 Madd[place] 0.08 mL, l 15:28: Gurinder Route: Vin 00 SUB-Q, Drug form: SOLN, ONCE, Priority: STAT, Start date: 09/01/11 10:28:00, Stop date: 09/01/11 10:28:00 Insulin 2011-0 No [place] 8 unit, Memoria regular 3-13 [place] 0.08 mL, l 15:28: Gurinder Route: Vin 00 SUB-Q, Drug form: SOLN, ONCE, Priority: STAT, Start date: 09/01/11 10:28:00, Stop date: 09/01/11 10:28:00 Insulin 2011-0 No [place] 8 unit, Memoria regular 3-13 Madd[place] 0.08 mL, l 15:28: Gurinder Route: Vin 00 SUB-Q, Drug form: SOLN, ONCE, Priority: STAT, Start date: 09/01/11 10:28:00, Stop date: 09/01/11 10:28:00 Insulin 2012-0 No [place] 8 unit, Memoria regular 3-13 Madden 0.08 mL, l 15:28: Gurinder Route: [place] 00 SUB-Q, Drug form: SOLN, ONCE, Priority: STAT, Start date: 09/01/11 10:28:00, Stop date: 09/01/11 10:28:00 Insulin 2012-0 No [place] 8 unit, Memoria regular 3-13 Madden 0.08 mL, l 15:28: Gurinder Route: [place] SUB-Q, Drug form: SOLN, ONCE, Priority: STAT, Start date: 09/01/11 10:28:00, Stop date: 09/01/11 10:28:00 Sodium 2012-0 No [place] 1,000 mL, Memori a Chloride 3-13 [place] Rate: l 0.9% 14:53: Gurinder 1,000 Vin (Bolus) IV 00 ml/hr, 1,000 mL Infuse over: 1 hr, Route: IV, Dosing Weight 68.18 kg, Total Volume: 1,000, Bolus Dose, Priority: STAT, Start date: 09/01/11 9:53:00, Duration: 1 doses or times, Stop date: 09/01/11 10:52:00 Sodium 2012-0 No [place] 1,000 mL, Memori a Chloride 3-13 [place] Rate: l 0.9% 14:53: Gurinder 1,000 Vin (Bolus) IV 00 ml/hr, 1,000 mL Infuse over: 1 hr, Route: IV, Dosing Weight 68.18 kg, Total Volume: 1,000, Bolus Dose, Priority: STAT, Start date: 09/01/11 9:53:00, Duration: 1 doses or times, Stop date: 09/01/11 10:52:00 Sodium 2012-0 No [place] 1,000 mL, Memori a Chloride 3-13 [place] Rate: l 0.9% 14:53: Gurinder 1,000 [place] (Bolus) IV 00 ml/hr, 1,000 mL Infuse over: 1 hr, Route: IV, Dosing Weight 68.18 kg, Total Volume: 1,000, Bolus Dose, Priority: STAT, Start date: 09/01/11 9:53:00, Duration: 1 doses or times, Stop date: 09/01/11 10:52:00 Sodium 2012-0 No [place] 1,000 mL, Memori a Chloride 3-13 Madd[place] Rate: l 0.9% 14:53: Gurinder 1,000 [place] (Bolus) IV 00 ml/hr, 1,000 mL Infuse over: 1 hr, Route: IV, Dosing Weight 68.18 kg, Total Volume: 1,000, Bolus Dose, Priority: STAT, Start date: 09/01/11 9:53:00, Duration: 1 doses or times, Stop date: 09/01/11 10:52:00 Sodium 2012-0 No [place] 1,000 mL, Memori a Chloride 3-13 Madden Rate: l 0.9% 14:53: Gurinder 1,000 [place] (Bolus) IV 00 ml/hr, 1,000 mL Infuse over: 1 hr, Route: IV, Dosing Weight 68.18 kg, Total Volume: 1,000, Bolus Dose, Priority: STAT, Start date: 09/01/11 9:53:00, Duration: 1 doses or times, Stop date: 09/01/11 10:52:00 Sodium 2012-0 No [place] 1,000 mL, Memori a Chloride 3-13 Madden Rate: l 0.9% 14:53: Gurinder 1,000 Vin (Bolus) IV 00 ml/hr, 1,000 mL Infuse over: 1 hr, Route: IV, Dosing Weight 68.18 kg, Total Volume: 1,000, Bolus Dose, Priority: STAT, Start date: 09/01/11 9:53:00, Duration: 1 doses or times, Stop date: 09/01/11 10:52:00 morphine 2012-0 No Ju 4 mg, 1 Mem oria Sulfate 3-13 Nikki mL, Route: l 13:28: Sandeep IVP, Drug Nidia nn 00 form: INJ, ONCE, Start date: 09/01/11 8:28:00, Stop date: 09/01/11 8:28:00 morphine 2012-0 No Ju 4 mg, 1 Mem oria Sulfate 3-13 Nikki mL, Route: l 13:28: Sandeep IVP, Drug Nidia nn 00 form: INJ, ONCE, Start date: 09/01/11 8:28:00, Stop date: 09/01/11 8:28:00 morphine 2012-0 No Ju 4 mg, 1 Mem oria Sulfate 3-13 Nikki mL, Route: l 13:28: Sandeep IVP, Drug Nidia nn 00 form: INJ, ONCE, Start date: 09/01/11 8:28:00, Stop date: 09/01/11 8:28:00 morphine 2012-0 No Ju 4 mg, 1 Mem oria Sulfate 3-13 Nikki mL, Route: l 13:28: Sandeep IVP, Drug Nidia nn 00 form: INJ, ONCE, Start date: 09/01/11 8:28:00, Stop date: 09/01/11 8:28:00 morphine 2012-0 No Ju 4 mg, 1 Mem oria Sulfate 3-13 Nikki mL, Route: l 13:28: Sandeep IVP, Drug Nidia nn 00 form: INJ, ONCE, Start date: 09/01/11 8:28:00, Stop date: 09/01/11 8:28:00 morphine 2012-0 No Ju 4 mg, 1 Mem oria Sulfate 3-13 Nikki mL, Route: l 13:28: Sandeep IVP, Drug Nidia nn 00 form: INJ, ONCE, Start date: 09/01/11 8:28:00, Stop date: 09/01/11 8:28:00 clindamycin 2012-0 No Ju 600 mg, 4 Memoria 3-13 Nikki mL, Route: l 13:20: Sandeep IVPB, Drug Herm naeem 00 form: INJ, ONCE, Priority: STAT, Start date: 09/01/11 8:20:00, Stop date: 09/01/11 8:20:00 clindamycin 2012-0 No Ju 600 mg, 4 Memoria 3-13 Nikki mL, Route: l 13:20: Sandeep IVPB, Drug Herm naeem 00 form: INJ, ONCE, Priority: STAT, Start date: 09/01/11 8:20:00, Stop date: 09/01/11 8:20:00 clindamycin 2012-0 No Ju 600 mg, 4 Memoria 3-13 Nikki mL, Route: l 13:20: Sandeep IVPB, Drug Herm naeem 00 form: INJ, ONCE, Priority: STAT, Start date: 09/01/11 8:20:00, Stop date: 09/01/11 8:20:00 clindamycin 2012-0 No Ju 600 mg, 4 Memoria 3-13 Nikki mL, Route: l 13:20: Sandeep IVPB, Drug Herm naeem 00 form: INJ, ONCE, Priority: STAT, Start date: 09/01/11 8:20:00, Stop date: 09/01/11 8:20:00 clindamycin 2012-0 No Ju 600 mg, 4 Memoria 3-13 Nikki mL, Route: l 13:20: Sandeep IVPB, Drug Herm naeem 00 form: INJ, ONCE, Priority: STAT, Start date: 09/01/11 8:20:00, Stop date: 09/01/11 8:20:00 clindamycin 2012-0 No Ju 600 mg, 4 Memoria 3-13 Nikki mL, Route: l 13:20: Sandeep IVPB, Drug Herm naeem 00 form: INJ, ONCE, Priority: STAT, Start date: 09/01/11 8:20:00, Stop date: 09/01/11 8:20:00 Sodium 2011-0 No Bee L 1,000 mL, M emoria Chloride 08-31 [place] Rate: l 0.9% 10:41: 1,000 [place] (Bolus) IV 00 ml/hr, 1000 mL Infuse over: 1 hr, Route: IV, Dosing Weight 68.182 kg, Total Volume: 1,000, Bolus Dose, Priority: STAT, Start date: 09/01/11 5:41:00, Duration: 1 doses or times, Stop date: 09/01/11 6:40:00 Sodium 2011-0 No Bee L 1,000 mL, M emoria Chloride 3 [place] Rate: l 0.9% 10:41: 1,000 Vin (Bolus) IV 00 ml/hr, 1000 mL Infuse over: 1 hr, Route: IV, Dosing Weight 68.182 kg, Total Volume: 1,000, Bolus Dose, Priority: STAT, Start date: 09/01/11 5:41:00, Duration: 1 doses or times, Stop date: 09/01/11 6:40:00 Sodium 2011-0 No Bee L 1,000 mL, M emoria Chloride 3-13 [place] Rate: l 0.9% 10:41: 1,000 [place] (Bolus) IV 00 ml/hr, 1000 mL Infuse over: 1 hr, Route: IV, Dosing Weight 68.182 kg, Total Volume: 1,000, Bolus Dose, Priority: STAT, Start date: 09/01/11 5:41:00, Duration: 1 doses or times, Stop date: 09/01/11 6:40:00 Sodium 2011-0 No Bee L 1,000 mL, M emoria Chloride 3-13 [place] Rate: l 0.9% 10:41: 1,000 Vin (Bolus) IV 00 ml/hr, 1000 mL Infuse over: 1 hr, Route: IV, Dosing Weight 68.182 kg, Total Volume: 1,000, Bolus Dose, Priority: STAT, Start date: 09/01/11 5:41:00, Duration: 1 doses or times, Stop date: 09/01/11 6:40:00 Sodium 2011-0 No Bee L 1,000 mL, M emoria Chloride 3-13 [place] Rate: l 0.9% 10:41: 1,000 [place] (Bolus) IV 00 ml/hr, 1000 mL Infuse over: 1 hr, Route: IV, Dosing Weight 68.182 kg, Total Volume: 1,000, Bolus Dose, Priority: STAT, Start date: 09/01/11 5:41:00, Duration: 1 doses or times, Stop date: 09/01/11 6:40:00 Sodium 2011-0 No Bee L 1,000 mL, M emoria Chloride 3-13 [place] Rate: l 0.9% 10:41: 1,000 [place] (Bolus) IV 00 ml/hr, 1000 mL Infuse over: 1 hr, Route: IV, Dosing Weight 68.182 kg, Total Volume: 1,000, Bolus Dose, Priority: STAT, Start date: 09/01/11 5:41:00, Duration: 1 doses or times, Stop date: 09/01/11 6:40:00 ondansetron 2011-0 No Bee L 4 mg, Memoria 3-13 [place] Route: l 09:06: IVP, Drug Vin 00 form: INJ, ONCE, Priority: STAT, Start date: 09/01/11 4:06:00, Stop date: 09/01/11 4:06:00 morphine 2011-0 No Bee L 4 mg, Mem oria Sulfate 3-13 [place] Route: l 09:06: IVP, ONCE, [place] 00 Priority: STAT, Start date: 09/01/11 4:06:00, Stop date: 09/01/11 4:06:00 ondansetron 2011-0 No Bee L 4 mg, Memoria 3-13 [place] Route: l 09:06: IVP, Drug [place] 00 form: INJ, ONCE, Priority: STAT, Start date: 09/01/11 4:06:00, Stop date: 09/01/11 4:06:00 morphine 2011-0 No Bee L 4 mg, Mem oria Sulfate 3-13 [place] Route: l 09:06: IVP, ONCE, Vin 00 Priority: STAT, Start date: 09/01/11 4:06:00, Stop date: 09/01/11 4:06:00 ondansetron 2011-0 No Bee L 4 mg, Memoria 3-13 [place] Route: l 09:06: IVP, Drug Vin 00 form: INJ, ONCE, Priority: STAT, Start date: 09/01/11 4:06:00, Stop date: 09/01/11 4:06:00 morphine 2011-0 No Bee L 4 mg, Mem oria Sulfate 3-13 [place] Route: l 09:06: IVP, ONCE, Vin 00 Priority: STAT, Start date: 09/01/11 4:06:00, Stop date: 09/01/11 4:06:00 ondansetron 2011-0 No Bee L 4 mg, Memoria 3-13 [place] Route: l 09:06: IVP, Drug [place] 00 form: INJ, ONCE, Priority: STAT, Start date: 09/01/11 4:06:00, Stop date: 09/01/11 4:06:00 morphine 2011-0 No Bee L 4 mg, Mem oria Sulfate 3-13 [place] Route: l 09:06: IVP, ONCE, [place] 00 Priority: STAT, Start date: 09/01/11 4:06:00, Stop date: 09/01/11 4:06:00 ondansetron 2012-0 No Bee L 4 mg, Memoria 3-13 [place] Route: l 09:06: IVP, Drug Vin 00 form: INJ, ONCE, Priority: STAT, Start date: 09/01/11 4:06:00, Stop date: 09/01/11 4:06:00 morphine 2012-0 No Bee L 4 mg, Mem oria Sulfate 3-13 [place] Route: l 09:06: IVP, ONCE, Vin 00 Priority: STAT, Start date: 09/01/11 4:06:00, Stop date: 09/01/11 4:06:00 ondansetron 2012-0 No Bee L 4 mg, Memoria 3-13 [place] Route: l 09:06: IVP, Drug [place] 00 form: INJ, ONCE, Priority: STAT, Start date: 09/01/11 4:06:00, Stop date: 09/01/11 4:06:00 morphine 2011-0 No Bee L 4 mg, Mem oria Sulfate 3-13 [place] Route: l 09:06: IVP, ONCE, [place] 00 Priority: STAT, Start date: 09/01/11 4:06:00, Stop date: 09/01/11 4:06:00 Sodium 2011-0 No Bee L 1,000 mL, M emoria Chloride 3- [place] Rate: l 0.9% 08:42: 1,000 [place] (Bolus) IV 00 ml/hr, 1000 mL Infuse over: 1 hr, Route: IV, Dosing Weight 68.182 kg, Total Volume: 1,000, Bolus Dose, Priority: STAT, Start date: 09/01/11 3:42:00, Duration: 1 doses or times, Stop date: 09/01/11 4:41:00 Sodium 2012-0 No Bee L 1,000 mL, M emoria Chloride 3-13 [place] Rate: l 0.9% 08:42: 1,000 [place] (Bolus) IV 00 ml/hr, 1000 mL Infuse over: 1 hr, Route: IV, Dosing Weight 68.182 kg, Total Volume: 1,000, Bolus Dose, Priority: STAT, Start date: 09/01/11 3:42:00, Duration: 1 doses or times, Stop date: 09/01/11 4:41:00 Sodium 2012-0 No Bee L 1,000 mL, M emoria Chloride 3-13 [place] Rate: l 0.9% 08:42: 1,000 [place] (Bolus) IV 00 ml/hr, 1000 mL Infuse over: 1 hr, Route: IV, Dosing Weight 68.182 kg, Total Volume: 1,000, Bolus Dose, Priority: STAT, Start date: 09/01/11 3:42:00, Duration: 1 doses or times, Stop date: 09/01/11 4:41:00 Sodium 2012-0 No Bee L 1,000 mL, M emoria Chloride 3- [place] Rate: l 0.9% 08:42: 1,000 Vin (Bolus) IV 00 ml/hr, 1000 mL Infuse over: 1 hr, Route: IV, Dosing Weight 68.182 kg, Total Volume: 1,000, Bolus Dose, Priority: STAT, Start date: 09/01/11 3:42:00, Duration: 1 doses or times, Stop date: 09/01/11 4:41:00 Sodium 2011-0 No Bee L 1,000 mL, M emoria Chloride 3- [place] Rate: l 0.9% 08:42: 1,000 Vin (Bolus) IV 00 ml/hr, 1000 mL Infuse over: 1 hr, Route: IV, Dosing Weight 68.182 kg, Total Volume: 1,000, Bolus Dose, Priority: STAT, Start date: 09/01/11 3:42:00, Duration: 1 doses or times, Stop date: 09/01/11 4:41:00 Sodium 2012-0 No Bee L 1,000 mL, M emoria Chloride 3-13 [place] Rate: l 0.9% 08:42: 1,000 Vin (Bolus) IV 00 ml/hr, 1000 mL Infuse over: 1 hr, Route: IV, Dosing Weight 68.182 kg, Total Volume: 1,000, Bolus Dose, Priority: STAT, Start date: 09/01/11 3:42:00, Duration: 1 doses or times, Stop date: 09/01/11 4:41:00 Insulin 2011-0 No Bee L 8 unit, Me moria regular 3-13 [place] 0.08 mL, l 08:30: Route: [place] 00 IVP, Drug form: SOLN, ONCE, Priority: STAT, Start date: 09/01/11 3:30:00, Stop date: 09/01/11 3:30:00 Insulin 2011-0 No Bee L 8 unit, Me moria regular 3-13 [place] 0.08 mL, l 08:30: Route: [place] 00 IVP, Drug form: SOLN, ONCE, Priority: STAT, Start date: 09/01/11 3:30:00, Stop date: 09/01/11 3:30:00 Insulin 2011-0 No Bee L 8 unit, Me moria regular 3-13 [place] 0.08 mL, l 08:30: Route: [place] IVP, Drug form: SOLN, ONCE, Priority: STAT, Start date: 09/01/11 3:30:00, Stop date: 09/01/11 3:30:00 Insulin 2011-0 No Bee L 8 unit, Me moria regular -13 [place] 0.08 mL, l 08:30: Route: [place] 00 IVP, Drug form: SOLN, ONCE, Priority: STAT, Start date: 09/01/11 3:30:00, Stop date: 09/01/11 3:30:00 Insulin 2011-0 No Bee L 8 unit, Me moria regular -13 [place] 0.08 mL, l 08:30: Route: [place] 00 IVP, Drug form: SOLN, ONCE, Priority: STAT, Start date: 09/01/11 3:30:00, Stop date: 09/01/11 3:30:00 Insulin 2011-0 No Bee L 8 unit, Me moria regular 3-13 [place] 0.08 mL, l 08:30: Route: Vin 00 IVP, Drug form: SOLN, ONCE, Priority: STAT, Start date: 09/01/11 3:30:00, Stop date: 09/01/11 3:30:00 Sodium 2011-0 No Bee L 1,000 mL, M emoria Chloride 3-13 [place] Rate: l 0.9% 07:29: 1,000 [place] (Bolus) IV 00 ml/hr, 1,000 mL Infuse over: 1 hr, Route: IV, Dosing Weight 68.182 kg, Total Volume: 1,000, Bolus Dose, Priority: STAT, Start date: 09/01/11 2:29:00, Duration: 1 doses or times, Stop date: 09/01/11 3:28:00 Sodium 2011-0 No Bee L 1,000 mL, M emoria Chloride 3- [place] Rate: l 0.9% 07:29: 1,000 [place] (Bolus) IV 00 ml/hr, 1,000 mL Infuse over: 1 hr, Route: IV, Dosing Weight 68.182 kg, Total Volume: 1,000, Bolus Dose, Priority: STAT, Start date: 09/01/11 2:29:00, Duration: 1 doses or times, Stop date: 09/01/11 3:28:00 Sodium 2011-0 No Bee L 1,000 mL, M emoria Chloride 3- [place] Rate: l 0.9% 07:29: 1,000 Vin (Bolus) IV 00 ml/hr, 1,000 mL Infuse over: 1 hr, Route: IV, Dosing Weight 68.182 kg, Total Volume: 1,000, Bolus Dose, Priority: STAT, Start date: 09/01/11 2:29:00, Duration: 1 doses or times, Stop date: 09/01/11 3:28:00 Sodium 2011-0 No Bee L 1,000 mL, M emoria Chloride 3- [place] Rate: l 0.9% 07:29: 1,000 Vin (Bolus) IV 00 ml/hr, 1,000 mL Infuse over: 1 hr, Route: IV, Dosing Weight 68.182 kg, Total Volume: 1,000, Bolus Dose, Priority: STAT, Start date: 09/01/11 2:29:00, Duration: 1 doses or times, Stop date: 09/01/11 3:28:00 Sodium 2012-0 No Bee L 1,000 mL, M emoria Chloride 3- [place] Rate: l 0.9% 07:29: 1,000 Vin (Bolus) IV 00 ml/hr, 1,000 mL Infuse over: 1 hr, Route: IV, Dosing Weight 68.182 kg, Total Volume: 1,000, Bolus Dose, Priority: STAT, Start date: 09/01/11 2:29:00, Duration: 1 doses or times, Stop date: 09/01/11 3:28:00 Sodium 2012-0 No Bee L 1,000 mL, M emoria Chloride 3-13 [place] Rate: l 0.9% 07:29: 1,000 [place] (Bolus) IV 00 ml/hr, 1,000 mL Infuse over: 1 hr, Route: IV, Dosing Weight 68.182 kg, Total Volume: 1,000, Bolus Dose, Priority: STAT, Start date: 09/01/11 2:29:00, Duration: 1 doses or times, Stop date: 09/01/11 3:28:00 potassium 2011-0 No Velásquez Noam 40 mEq, 2 Memoria chloride 3-04 [place] tab, l 15:00: Route: PO, [place] Drug form: ERTAB, BID, Start date: 08/23/11 9:00:00, Duration: 2 doses or times, Stop date: 08/23/11 17:00:00 potassium 2012-0 No Velásquez Noam 40 mEq, 2 Memoria chloride 3-04 Akm[place] tab, l 15:00: Route: PO, Vin Drug form: ERTAB, BID, Start date: 08/23/11 9:00:00, Duration: 2 doses or times, Stop date: 08/23/11 17:00:00 potassium 2012-0 No Velásquez Noam 40 mEq, 2 Memoria chloride 3-04 Akmal tab, l 15:00: Route: PO, Vin Drug form: ERTAB, BID, Start date: 08/23/11 9:00:00, Duration: 2 doses or times, Stop date: 08/23/11 17:00:00 potassium 2012-0 No Velásquez Noam 40 mEq, 2 Memoria chloride 3-04 [place]km[place] tab, l 15:00: Route: PO, Vin Drug form: ERTAB, BID, Start date: 08/23/11 9:00:00, Duration: 2 doses or times, Stop date: 08/23/11 17:00:00 potassium 2012-0 No Velásquez Noam 40 mEq, 2 Memoria chloride 3-04 [place]km[place] tab, l 15:00: Route: PO, [place] 00 Drug form: ERTAB, BID, Start date: 08/23/11 9:00:00, Duration: 2 doses or times, Stop date: 08/23/11 17:00:00 potassium 2012-0 No Velásquez Noam 40 mEq, 2 Memoria chloride 3-04 [place]km[place] tab, l 15:00: Route: PO, [place] 00 Drug form: ERTAB, BID, Start date: 08/23/11 9:00:00, Duration: 2 doses or times, Stop date: 08/23/11 17:00:00 amLODipine 2011-0 Yes Velásquez Noam 5 mg, 1 Memoria 5 mg oral 3-04 Akmal tab, PO, l tablet 14:45: Daily, 30 Jake n 36 tab, 3, 3, Substituti on Allowed, TAB amLODipine 0 Yes Velásquez Noam 5 mg, 1 Memoria 5 mg oral 3-04 Akmal tab, PO, l tablet 14:45: Daily, 30 Jake n 36 tab, 3, 3, Substituti on Allowed, TAB amLODipine 2011-0 Yes Velásquez Noam 5 mg, 1 Memoria 5 mg oral 3-04 Akmal tab, PO, l tablet 14:45: Daily, 30 Jake n 36 tab, 3, 3, Substituti on Allowed, TAB amLODipine 2011- Yes Velásquez Noam 5 mg, 1 Memoria 5 mg oral 3-04 Akmal tab, PO, l tablet 14:45: Daily, 30 Jake n 36 tab, 3, 3, Substituti on Allowed, TAB amLODipine 2011-0 Yes Velásquez Noam 5 mg, 1 Memoria 5 mg oral 3-04 Akmal tab, PO, l tablet 14:45: Daily, 30 Jake n 36 tab, 3, 3, Substituti on Allowed, TAB amLODipine 2011-0 Yes Velásquez Noam 5 mg, 1 Memoria 5 mg oral 3-04 Akmal tab, PO, l tablet 14:45: Daily, 30 Jake n 36 tab, 3, 3, Substituti on Allowed, TAB lisinopril 2011-0 Yes Velásquez Noam 40 mg, 2 Memoria [...] s injection 3, Substituti on Allowed, SUSP Novolin N Yes Velásquez Noam 18 Units, Memoria 100 3-04 Akmal SUB-Q, l units/mL 14:42: BID, 3 [place] subcutaneou 04 vial, 3, s injection 3, Substituti on Allowed, SUSP Novolin N Yes Velásquez Noam 18 Units, Memoria 100 3-04 Akmal SUB-Q, l units/mL 14:42: BID, 3 Vin subcutaneou 04 vial, 3, s injection 3, Substituti on Allowed, SUSP Novolin N Yes Velásquez Noam 18 Units, Memoria 100 3-04 Akmal SUB-Q, l units/mL 14:42: BID, 3 Vin subcutaneou 04 vial, 3, s injection 3, Substituti on Allowed, SUSP Novolin N Yes Velásquez Noam 18 Units, Memoria 100 3-04 Akmal SUB-Q, l units/mL 14:42: BID, 3 [place] subcutaneou 04 vial, 3, s injection 3, Substituti on Allowed, SUSP Novolin N Yes Velásquez Noam 18 Units, Memoria 100 3-04 Akmal SUB-Q, l units/mL 14:42: BID, 3 [place] subcutaneou 04 vial, 3, s injection 3, Substituti on Allowed, SUSP insulin Yes Velásquez Noam 5 Units, Memoria regular 3-04 Akmal SUB-Q, l human 14:40: TID, 30 [place] recombinant 10 vial, 3, 100 3, units/mL Substituti injectable on solution Allowed, before breakfast lunch and dinner, SOLNbefore breakfast lunch and dinner insulin Yes Velásquez Noam 5 Units, Memoria regular 3-04 Akmal SUB-Q, l human 14:40: TID, 30 Vin recombinant 10 vial, 3, 100 3, units/mL Substituti injectable on solution Allowed, before breakfast lunch and dinner, SOLNbefore breakfast lunch and dinner insulin Yes Velásquez Noam 5 Units, Memoria regular 3-04 Akmal SUB-Q, l human 14:40: TID, 30 [place] recombinant 10 vial, 3, 100 3, units/mL Substituti injectable on solution Allowed, before breakfast lunch and dinner, SOLNbefore breakfast lunch and dinner insulin Yes Velásquez Noam 5 Units, Memoria regular 3-04 Akmal SUB-Q, l human 14:40: TID, 30 Vin recombinant 10 vial, 3, 100 3, units/mL Substituti injectable on solution Allowed, before breakfast lunch and dinner, SOLNbefore breakfast lunch and dinner insulin Yes Velásquez Noam 5 Units, Memoria regular 3-04 Akmal SUB-Q, l human 14:40: TID, 30 [place] recombinant 10 vial, 3, 100 3, units/mL Substituti injectable on solution Allowed, before breakfast lunch and dinner, [facility] breakfast lunch and dinner insulin 2012-0 Yes Velásquez Noam 5 Units, Memoria regular 3-04 Akmal SUB-Q, l human 14:40: TID, 30 [place] recombinant 10 vial, 3, 100 3, units/mL Substituti injectable on solution Allowed, before breakfast [facility] and dinner, [facility] and dinner potassium 2011-0 No Velásquez Noam 20 mEq, Memoria chloride 3-04 Akmal 100 mL, l 14:00: Route: [place] 00 IVPB, Drug form: INJ, Q2H, Start date: 08/23/11 8:00:00, Duration: 2 doses or times, Stop date: 08/23/11 10:00:00 potassium 2011-0 No Velásquez Noam 20 mEq, Memoria chloride 3-04 Akmal 100 mL, l 14:00: Route: [place] IVPB, Drug form: INJ, Q2H, Start date: 08/23/11 8:00:00, Duration: 2 doses or times, Stop date: 08/23/11 10:00:00 potassium 2011-0 No Velásquez Noam 20 mEq, Memoria chloride 3-04 Akmal 100 mL, l 14:00: Route: Vin 00 IVPB, Drug form: INJ, Q2H, Start date: 08/23/11 8:00:00, Duration: 2 doses or times, Stop date: 08/23/11 10:00:00 potassium 2011-0 No Velásquez Noam 20 mEq, Memoria chloride 3-04 Akmal 100 mL, l 14:00: Route: Vin 00 IVPB, Drug form: INJ, Q2H, Start date: 08/23/11 8:00:00, Duration: 2 doses or times, Stop date: 08/23/11 10:00:00 potassium 2012-0 No Velásquez Noam 20 mEq, Memoria chloride 3-04 Akmal 100 mL, l 14:00: Route: [place] 00 IVPB, Drug form: INJ, Q2H, Start date: 08/23/11 8:00:00, Duration: 2 doses or times, Stop date: 08/23/11 10:00:00 potassium 2011-0 No Velásquez Noam 20 mEq, Memoria chloride 3-04 Akmal 100 mL, l 14:00: Route: Vin 00 IVPB, Drug form: INJ, Q2H, Start date: 08/23/11 8:00:00, Duration: 2 doses or times, Stop date: 08/23/11 10:00:00 calcium 2011-0 No Velásquez Noam 1 gm, Mem oria chloride 3-04 Akmal Route: l 13:28: IVPB, [place] 00 ONCE, Priority: STAT, Start date: 08/23/11 7:28:00, Stop date: 08/23/11 7:28:00 calcium 2011-0 No Velásquez Noam 1 gm, Mem oria chloride 3-04 Akmal Route: l 13:28: IVPB, Vin 00 ONCE, Priority: STAT, Start date: 08/23/11 7:28:00, Stop date: 08/23/11 7:28:00 calcium 2011-0 No Velásquez Noam 1 gm, Mem oria chloride 3-04 Akmal Route: l 13:28: IVPB, Vin 00 ONCE, Priority: STAT, Start date: 08/23/11 7:28:00, Stop date: 08/23/11 7:28:00 calcium 2011-0 No Velásquez Noam 1 gm, Mem oria chloride 3-04 Akmal Route: l 13:28: IVPB, [place] 00 ONCE, Priority: STAT, Start date: 08/23/11 7:28:00, Stop date: 08/23/11 7:28:00 calcium 2011-0 No Velásquez Noam 1 gm, Mem oria chloride 3-04 Akmal Route: l 13:28: IVPB, Vin 00 ONCE, Priority: STAT, Start date: 08/23/11 7:28:00, Stop date: 08/23/11 7:28:00 calcium 2011-0 No Velásquez Noam 1 gm, Mem oria chloride 3-04 Akmal Route: l 13:28: IVPB, Vin 00 ONCE, Priority: STAT, Start date: 08/23/11 7:28:00, Stop date: 08/23/11 7:28:00 potassium 2011-0 No Velásquez Noam 40 mEq, Memoria chloride 3-04 Akmal Route: IV, l 12:29: ONCE, Vin 00 Start date: 08/23/11 6:29:00, Stop date: 08/23/11 6:29:00 potassium 2011-0 No Velásquez Noam 40 mEq, Memoria chloride 3-04 Akmal Route: IV, l 12:29: ONCE, Start date: 08/23/11 6:29:00, Stop date: 08/23/11 6:29:00 potassium 0 No Velásquez Noam 40 mEq, Memoria chloride 3-04 Akmal Route: IV, l 12:29: ONCE, Start date: 08/23/11 6:29:00, Stop date: 08/23/11 6:29:00 potassium 2011-0 No Velásquez Noam 40 mEq, Memoria chloride 3-04 Akmal Route: IV, l 12:29: ONCE, Start date: 08/23/11 6:29:00, Stop date: 08/23/11 6:29:00 potassium 0 No Velásquez Noam 40 mEq, Memoria chloride 3-04 Akmal Route: IV, l 12:29: ONCE, Start date: 08/23/11 6:29:00, Stop date: 08/23/11 6:29:00 potassium 2011-0 No Velásquez Noam 40 mEq, Memoria chloride 3-04 Akmal Route: IV, l 12:29: ONCE, Start date: 08/23/11 6:29:00, Stop date: 08/23/11 6:29:00 potassium 0 No Velásquez Noam 60 mEq, 3 Memoria chloride 20 3-04 Akmal tab, l mEq oral 12:27: Route: PO, Her braden tablet, 00 Drug form: extended ERTAB, release ONCE, Start date: 08/23/11 6:27:00, Stop date: 08/23/11 6:27:00 potassium 2011-0 No Velásquez Noam 60 mEq, 3 Memoria chloride 20 3-04 Akmal tab, l mEq oral 12:27: Route: PO, Her braden tablet, 00 Drug form: extended ERTAB, release ONCE, Start date: 08/23/11 6:27:00, Stop date: 08/23/11 6:27:00 potassium 2012-0 No Velásquez Noam 60 mEq, 3 Memoria chloride 20 3-04 Akmal tab, l mEq oral 12:27: Route: PO, Her braden tablet, 00 Drug form: extended ERTAB, release ONCE, Start date: 08/23/11 6:27:00, Stop date: 08/23/11 6:27:00 potassium 2011-0 No Velásquez Noam 60 mEq, 3 Memoria chloride 20 3-04 Akmal tab, l mEq oral 12:27: Route: PO, Her braden tablet, 00 Drug form: extended ERTAB, release ONCE, Start date: 08/23/11 6:27:00, Stop date: 08/23/11 6:27:00 potassium 2012-0 No Velásquez Noam 60 mEq, 3 Memoria chloride 20 3-04 Akmal tab, l mEq oral 12:27: Route: PO, Her braden tablet, 00 Drug form: extended ERTAB, release ONCE, Start date: 08/23/11 6:27:00, Stop date: 08/23/11 6:27:00 potassium 2012-0 No Velásquez Noam 60 mEq, [...] or times, Stop date: 08/23/11 6:26:00 magnesium 2012-0 No Velásquez Noam 2 gm, 50 Memoria sulfate 3-04 Akmal mL, Route: l 12:26: IVPB, Drug [place] 00 form: INJ, ONCE, Total dose = 2 gm, Start date: 08/23/11 6:26:00, Duration: 1 doses or times, Stop date: 08/23/11 6:26:00 magnesium 2011-0 No Velásquez Noam 2 gm, 50 Memoria sulfate 3-04 Akmal mL, Route: l 12:26: IVPB, Drug [place] 00 form: INJ, ONCE, Total dose = 2 gm, Start date: 08/23/11 6:26:00, Duration: 1 doses or times, Stop date: 08/23/11 6:26:00 magnesium 2011-0 No Velásquez Noam 2 gm, 50 Memoria sulfate 3-04 Akmal mL, Route: l 12:26: IVPB, Drug [place] 00 form: INJ, ONCE, Total dose = 2 gm, Start date: 08/23/11 6:26:00, Duration: 1 doses or times, Stop date: 08/23/11 6:26:00 magnesium 2011-0 No Velásquez Noam 2 gm, 50 Memoria sulfate 3-04 Akmal mL, Route: l 12:26: IVPB, Drug Vin 00 form: INJ, ONCE, Total dose = 2 gm, Start date: 08/23/11 6:26:00, Duration: 1 doses or times, Stop date: 08/23/11 6:26:00 magnesium 2011-0 No Evlásquez Noam 2 gm, 50 Memoria sulfate 3-04 [...] doses or times, Stop date: 08/22/11 10:26:00 magnesium 2011-0 No [place] 2 gm, 50 Me moria sulfate 3-03 Rodriguez mL, Route: l 16:26: Ahmed IVPB, Drug Jake n 00 form: INJ, ONCE, Total dose = 2 gm, Start date: 08/22/11 10:26:00, Duration: 1 doses or times, Stop date: 08/22/11 10:26:00 magnesium 2011-0 No [place] 2 gm, 50 Me moria sulfate 3-03 Rodriguez mL, Route: l 16:26: Ahmed IVPB, Drug Jake n 00 form: INJ, ONCE, Total dose = 2 gm, Start date: 08/22/11 10:26:00, Duration: 1 doses or times, Stop date: 08/22/11 10:26:00 magnesium 2011-0 No [place] 2 gm, 50 Me moria sulfate 3-03 Rodriguez mL, Route: l 16:26: Ahmed IVPB, Drug Jake n 00 form: INJ, ONCE, Total dose = 2 gm, Start date: 08/22/11 10:26:00, Duration: 1 doses or times, Stop date: 08/22/11 10:26:00 magnesium 2011-0 No [place] 2 gm, 50 Me moria sulfate 3-03 Rodriguez mL, Route: l 16:26: Ahmed IVPB, Drug Jake n 00 form: INJ, ONCE, Total dose = 2 gm, Start date: 08/22/11 10:26:00, Duration: 1 doses or times, Stop date: 08/22/11 10:26:00 magnesium 2011-0 No [place] 2 gm, 50 Me moria sulfate 3-03 Rodriguez mL, Route: l 16:26: Ahmed IVPB, Drug Jake n 00 form: INJ, ONCE, Total dose = 2 gm, Start date: 08/22/11 10:26:00, Duration: 1 doses or times, Stop date: 08/22/11 10:26:00 calcium 2011-0 No [place] 1,000 mg, Mem oria gluconate 3-03 Rodriguez 10 mL, l 16:25: Ahmed Route: [place] 00 IVPB, ONCE, Start date: 08/22/11 10:25:00, Stop date: 08/22/11 10:25:00 calcium 2011-0 No [place] 1,000 mg, Mem oria gluconate 3-03 Rodriguez 10 mL, l 16:25: Ahmed Route: Vin 00 IVPB, ONCE, Start date: 08/22/11 10:25:00, Stop date: 08/22/11 10:25:00 calcium 2012-0 No [place] 1,000 mg, Mem oria gluconate 3-03 Rodriguez 10 mL, l 16:25: Ahmed Route: [place] 00 IVPB, ONCE, Start date: 08/22/11 10:25:00, Stop date: 08/22/11 10:25:00 calcium 2012-0 No [place] 1,000 mg, Mem oria gluconate 3-03 Rodriguez 10 mL, l 16:25: Ahmed Route: Vin 00 IVPB, ONCE, Start date: 08/22/11 10:25:00, Stop date: 08/22/11 10:25:00 calcium 2012-0 No [place] 1,000 mg, Mem oria gluconate 3-03 Rodriguez 10 mL, l 16:25: Ahmed Route: Vin 00 IVPB, ONCE, Start date: 08/22/11 10:25:00, Stop date: 08/22/11 10:25:00 calcium 2012-0 No B[place] 1,000 mg, Mem [...] Duration: 30 day, Stop date: 08/22/11 12:00:00 potassium 2012-0 No Velásquez Noam 40 mEq, 2 Memoria chloride 20 3-03 Akmal tab, l mEq oral 15:00: Route: PO, Her braden tablet, 00 Drug form: extended ERTAB, release Daily, Start date: 08/22/11 9:00:00, Duration: 30 day, Stop date: 08/22/11 12:00:00 potassium 2012-0 No Velásquez Noam 40 mEq, 2 Memoria chloride 20 3-03 Akmal tab, l mEq oral 15:00: Route: PO, Her braden tablet, 00 Drug form: extended ERTAB, release Daily, Start date: 08/22/11 9:00:00, Duration: 30 day, Stop date: 08/22/11 12:00:00 potassium 2012-0 No Velásquez Noam 40 mEq, 2 Memoria chloride 20 3-03 Akmal tab, l mEq oral 15:00: Route: PO, Her braden tablet, 00 Drug form: extended ERTAB, release Daily, Start date: 08/22/11 9:00:00, Duration: 30 day, Stop date: 08/22/11 12:00:00 potassium 2012-0 No Velásquez Noam 40 mEq, 2 Memoria chloride 20 3-03 Akmal tab, l mEq oral 15:00: Route: PO, Her braden tablet, 00 Drug form: extended ERTAB, release Daily, Start date: 08/22/11 9:00:00, Duration: 30 day, Stop date: 08/22/11 12:00:00 potassium 2012-0 No Velásquez Noam 40 mEq, [...] doses or times, Stop date: 08/22/11 7:26:00 magnesium 2012-0 No Velásquez Noam 2 gm, 50 Memoria sulfate 3-03 Akmal mL, Route: l 13:26: IVPB, Drug Vin 00 form: INJ, ONCE, Total dose = 2 gm, Start date: 08/22/11 7:26:00, Duration: 1 doses or times, Stop date: 08/22/11 7:26:00 magnesium 2012-0 No Velásquez Noam 2 gm, 50 Memoria sulfate 3-03 Akmal mL, Route: l 13:26: IVPB, Drug [place] 00 form: INJ, ONCE, Total dose = 2 gm, Start date: 08/22/11 7:26:00, Duration: 1 doses or times, Stop date: 08/22/11 7:26:00 magnesium 2012-0 No Velásquez Noam 2 gm, 50 Memoria sulfate 3-03 Akmal mL, Route: l 13:26: IVPB, Drug [place] 00 form: INJ, ONCE, Total dose = 2 gm, Start date: 08/22/11 7:26:00, Duration: 1 doses or times, Stop date: 08/22/11 7:26:00 magnesium 2012-0 No Velásquez Noam 2 gm, 50 Memoria sulfate 3-03 Akmal mL, Route: l 13:26: IVPB, Drug Vin 00 form: INJ, ONCE, Total dose = 2 gm, Start date: 08/22/11 7:26:00, Duration: 1 doses or times, Stop date: 08/22/11 7:26:00 magnesium 2012-0 No Velásquez Noam 2 gm, 50 Memoria sulfate 3-03 Akmal mL, Route: l 13:26: IVPB, Drug [place] 00 form: INJ, ONCE, Total dose = 2 gm, Start date: 08/22/11 7:26:00, Duration: 1 doses or times, Stop date: 08/22/11 7:26:00 Geodon 2011-0 No Yury 120 mg, 3 Mem oria 3-03 Gato cap, l 03:00: Rivero Route: PO, H ermann 00 Drug form: CAP, Bedtime, Start date: 08/21/11 21:00:00, Duration: 30 day, Stop date: 09/19/11 21:00:00 Geodon 2012-0 No Yury 120 mg, 3 Mem oria 3-03 Gato cap, l 03:00: Rivero Route: PO, H ermann 00 Drug form: CAP, Bedtime, Start date: 08/21/11 21:00:00, Duration: 30 day, Stop date: 09/19/11 21:00:00 Geodon 2012-0 No Yury 120 mg, 3 Mem oria 3-03 Gato cap, l 03:00: Rivero Route: PO, H ermann 00 Drug form: CAP, Bedtime, Start date: 08/21/11 21:00:00, Duration: 30 day, Stop date: 09/19/11 21:00:00 Geodon 2012-0 No Yury 120 mg, 3 Mem oria 3-03 Gato cap, l 03:00: Rivero Route: PO, H ermann 00 Drug form: CAP, Bedtime, Start date: 08/21/11 21:00:00, Duration: 30 day, Stop date: 09/19/11 21:00:00 Geodon 2012-0 No Yuyr 120 mg, 3 Mem oria 3-03 Gato cap, l 03:00: Rivero Route: PO, H ermann 00 Drug form: CAP, Bedtime, Start date: 08/21/11 21:00:00, Duration: 30 day, Stop date: 09/19/11 21:00:00 Geodon 2012-0 No Yury 120 mg, 3 [...] date: 08/21/11 14:06:00, Stop date: 08/21/11 14:06:00 lisinopril 2012-0 No Yury 10 mg, 1 Memoria 3-02 Gato tab, l 20:06: Rivero Route: PO, H ermann 00 Drug form: TAB, ONCE, Start date: 08/21/11 14:06:00, Stop date: 08/21/11 14:06:00 lisinopril 2012-0 No Yury 10 mg, 1 Memoria 3-02 Gato tab, l 20:06: Rivero Route: PO, H ermann 00 Drug form: TAB, ONCE, Start date: 08/21/11 14:06:00, Stop date: 08/21/11 14:06:00 lisinopril 2012-0 No Yury 10 mg, 1 Memoria 3-02 Gato tab, l 20:06: Rivero Route: PO, H ermann 00 Drug form: TAB, ONCE, Start date: 08/21/11 14:06:00, Stop date: 08/21/11 14:06:00 lisinopril 2012-0 No Yury 10 mg, 1 Memoria 3-02 Gato tab, l 20:06: Rivero Route: PO, H erm Drug form: TAB, ONCE, Start date: 08/21/11 14:06:00, Stop date: 08/21/11 14:06:00 lisinopril 2012-0 No Yury 10 mg, 1 Memoria 3-02 Gato tab, l 20:06: Rivero Route: PO, H erm Drug form: TAB, ONCE, Start date: 08/21/11 14:06:00, Stop date: 08/21/11 14:06:00 potassium 2012-0 No Yury 20 mEq, Me moria chloride 3-02 Gato 100 mL, l 15:12: Rivero Route: Nidia nn IVPB, Drug form: INJ, ONCE, Start date: 08/21/11 9:12:00, Stop date: 08/21/11 9:12:00 potassium 2012-0 No Yury 20 mEq, Me moria chloride 3-02 Gato 100 mL, l 15:12: Rivero Route: Nidia nn IVPB, Drug form: INJ, ONCE, Start date: 08/21/11 9:12:00, Stop date: 08/21/11 9:12:00 potassium 2012-0 No Yury 20 mEq, Me moria chloride 3-02 Gato 100 mL, l 15:12: Rivero Route: Nidia nn IVPB, Drug form: INJ, ONCE, Start date: 08/21/11 9:12:00, Stop date: 08/21/11 9:12:00 potassium 2012-0 No Yury 20 mEq, Me moria chloride 3-02 Gato 100 mL, l 15:12: Rivero Route: Nidia nn IVPB, Drug form: INJ, ONCE, Start date: 08/21/11 9:12:00, Stop date: 08/21/11 9:12:00 potassium 2012-0 No Yury 20 mEq, Me moria chloride 3-02 Gato 100 mL, l 15:12: Rivero Route: Ndiia nn IVPB, Drug form: INJ, ONCE, Start date: 08/21/11 9:12:00, Stop date: 08/21/11 9:12:00 potassium 2012-0 No Yury 20 mEq, Me moria chloride 3-02 Gato 100 mL, l 15:12: Rivero Route: Nidia nn 00 IVPB, Drug form: INJ, ONCE, Start date: 08/21/11 9:12:00, Stop date: 08/21/11 9:12:00 lisinopril 2012-0 No Velásquez Noam 40 mg, 2 Memoria 3-02 Akmal tab, l 15:00: Route: PO, [place] Drug form: TAB, Daily, Start date: 08/21/11 9:00:00, Stop date: 09/19/11 9:00:00 lisinopril 2012-0 No Velásquez Noam 40 mg, 2 Memoria 3-02 Akmal tab, l 15:00: Route: PO, [place] Drug form: TAB, Daily, Start date: 08/21/11 9:00:00, Stop date: 09/19/11 9:00:00 lisinopril 2012-0 No Velásquez Noam 40 mg, 2 Memoria 3-02 Akmal tab, l 15:00: Route: PO, [place] 00 Drug form: TAB, Daily, Start date: 08/21/11 9:00:00, Stop date: 09/19/11 9:00:00 lisinopril 2012-0 No Velásquez Noam 40 mg, 2 Memoria 3-02 Akmal tab, l 15:00: Route: PO, [place] 00 Drug form: TAB, Daily, Start date: 08/21/11 9:00:00, Stop date: 09/19/11 9:00:00 lisinopril 2012-0 No Velásquez Noam 40 mg, 2 Memoria 3-02 Akmal tab, l 15:00: Route: PO, Vin 00 Drug form: TAB, Daily, Start date: 08/21/11 9:00:00, Stop date: 09/19/11 9:00:00 lisinopril 2012-0 No Velásquez Noam 40 mg, 2 Memoria 3-02 Akmal tab, l 15:00: Route: PO, [place] Drug form: TAB, Daily, Start date: 08/21/11 9:00:00, Stop date: 09/19/11 9:00:00 hydrALAZINE 2011-0 No Yury 10 mg, 0.5 Memoria 3-02 Gato mL, Route: l 14:43: Rivero IVP, Drug He form: INJ, Q6H, PRN Hypertensi on, Start date: 08/21/11 8:43:00, Duration: 30 day, Stop date: 09/20/11 8:42:00 hydrALAZINE 2011-0 No Yury 10 mg, 0.5 Memoria 3-02 Gato mL, Route: l 14:43: Rivero IVP, Drug He form: INJ, Q6H, PRN Hypertensi on, Start date: 08/21/11 8:43:00, Duration: 30 day, Stop date: 09/20/11 8:42:00 hydrALAZINE 2011-0 No Yury 10 mg, 0.5 Memoria 3-02 Gato mL, Route: l 14:43: Rivero IVP, Drug He form: INJ, Q6H, PRN Hypertensi on, Start date: 08/21/11 8:43:00, Duration: 30 day, Stop date: 09/20/11 8:42:00 hydrALAZINE 2011-0 No Yury 10 mg, 0.5 Memoria 3-02 Gato mL, Route: l 14:43: Rivero IVP, Drug He form: INJ, Q6H, PRN Hypertensi on, Start date: 08/21/11 8:43:00, Duration: 30 day, Stop date: 09/20/11 8:42:00 hydrALAZINE 2011-0 No Yury 10 mg, 0.5 Memoria 3-02 Gato mL, Route: l 14:43: Rivero IVP, Drug He form: INJ, Q6H, PRN Hypertensi on, Start date: 08/21/11 8:43:00, Duration: 30 day, Stop date: 09/20/11 8:42:00 hydrALAZINE 2011-0 No Yury 10 mg, 0.5 [...] Duration: 30 day, Stop date: 09/19/11 9:00:00 Geodon 2011-0 No Yury 60 mg, 3 [...] Duration: 30 day, Stop date: 09/19/11 9:00:00 Geodon 2011-0 No Yury 60 mg, 3 Mendoza janice 3-02 Gato cap, l 03:00: Rivero Route: PO, H erm 00 Drug form: CAP, ONCE, Start date: 08/20/11 21:00:00, Stop date: 08/20/11 21:00:00 Cogentin 2011-0 No Yury 1 mg, 1 Mem oria 3-02 Gato tab, l 03:00: Rivero Route: PO, H erm 00 Drug form: TAB, Q12H, Start date: 08/20/11 21:00:00, Duration: 30 day, Stop date: 09/19/11 9:00:00 Geodon 2012-0 No Yury 60 mg, 3 Mendoza janice 3-02 Gato cap, l 03:00: Rivero Route: PO, H ermann 00 Drug form: CAP, ONCE, Start date: 08/20/11 21:00:00, Stop date: 08/20/11 21:00:00 Cogentin 2012-0 No Yury 1 mg, 1 Mem oria 3-02 Gato tab, l 03:00: Rivero Route: PO, H ermann 00 Drug form: TAB, Q12H, Start date: 08/20/11 21:00:00, Duration: 30 day, Stop date: 09/19/11 9:00:00 Geodon 2012-0 No Yury 60 mg, 3 Mendoza janice 3-02 Gato cap, l 03:00: Rivero Route: PO, H ermann 00 Drug form: CAP, ONCE, Start date: 08/20/11 21:00:00, Stop date: 08/20/11 21:00:00 Cogentin 2012-0 No Yury 1 mg, 1 Mem oria 3-02 Gato tab, l 03:00: Rivero Route: PO, H ermann 00 Drug form: TAB, Q12H, Start date: 08/20/11 21:00:00, Duration: 30 day, Stop date: 09/19/11 9:00:00 Geodon 2012-0 No Yury 60 mg, 3 Mendoza janice 3-02 Gato cap, l 03:00: River[place] Route: PO, H ermann 00 Drug form: CAP, ONCE, Start date: 08/20/11 21:00:00, Stop date: 08/20/11 21:00:00 Cogentin 2012-0 No Yury 1 mg, 1 Mem oria 3-02 Gato tab, l 03:00: Rivero Route: PO, H ermann 00 Drug form: TAB, Q12H, Start date: 08/20/11 21:00:00, Duration: 30 day, Stop date: 09/19/11 9:00:00 Phenergan 2012-0 No Yury 6.25 mg, M emoria 3-01 Gato 0.25 mL, l 21:41: Rivero Route: Nidia nn 00 IVPB, Drug form: INJ, Q6H, PRN Nausea & Vomiting, Start date: 08/20/11 15:41:00, Stop date: 09/19/11 15:40:00 Phenergan 2011-0 No Yury 6.25 mg, M emoria 3-01 Gato 0.25 mL, l 21:41: River[facility] Route: Nidia nn IVPB, Drug form: INJ, Q6H, PRN Nausea & Vomiting, Start date: 08/20/11 15:41:00, Stop date: 09/19/11 15:40:00 Phenergan 2011-0 No Yury 6.25 mg, M emoria 3-01 Gato 0.25 mL, l 21:41: [place] Route: Nidia nn IVPB, Drug form: INJ, Q6H, PRN Nausea & Vomiting, Start date: 08/20/11 15:41:00, Stop date: 09/19/11 15:40:00 Phenergan 2011-0 No Yury 6.25 mg, M emoria 3-01 Gato 0.25 mL, l 21:41: [place] Route: Nidia nn IVPB, Drug form: INJ, Q6H, PRN Nausea & Vomiting, Start date: 08/20/11 15:41:00, Stop date: 09/19/11 15:40:00 Phenergan 2011-0 No Yury 6.25 mg, M emoria 3-01 Gato 0.25 mL, l 21:41: Rivero Route: Nidia nn IVPB, Drug form: INJ, Q6H, PRN Nausea & Vomiting, Start date: 08/20/11 15:41:00, Stop date: 09/19/11 15:40:00 Phenergan 2011-0 No Yury 6.25 mg, M emoria 3-01 Gato 0.25 mL, l 21:41: Rivero Route: Nidia nn IVPB, Drug form: INJ, Q6H, PRN Nausea & Vomiting, Start date: 08/20/11 15:41:00, Stop date: 09/19/11 15:40:00 Compazine 0 No Bism[place] 5 mg, 1 Mem oria 3-01 Rodriguez tab, l 20:30: Ahmed Route: PO, Jake n 00 Drug form: TAB, Q6H, PRN Nausea & Vomiting, Start date: 08/20/11 14:30:00, Duration: 30 day, Stop date: 09/19/11 14:29:00 Compazine 0 No Bism[place] 5 mg, 1 Mem oria 3-01 Rodriguez tab, l 20:30: Ahmed Route: PO, Jake n 00 Drug form: TAB, Q6H, PRN Nausea & Vomiting, Start date: 08/20/11 14:30:00, Duration: 30 day, Stop date: 09/19/11 14:29:00 Compazine 0 No [place] 5 mg, 1 Mem oria 3-01 Rodriguez tab, l 20:30: Ahmed Route: PO, Jake n 00 Drug form: TAB, Q6H, PRN Nausea & Vomiting, Start date: 08/20/11 14:30:00, Duration: 30 day, Stop date: 09/19/11 14:29:00 Compazine 0 No [place] 5 mg, 1 Mem oria 3-01 Rodriguez tab, l 20:30: Ahmed Route: PO, Jake n 00 Drug form: TAB, Q6H, PRN Nausea & Vomiting, Start date: 08/20/11 14:30:00, Duration: 30 day, Stop date: 09/19/11 14:29:00 Compazine 0 No [place] 5 mg, 1 Mem oria 3-01 Rodriguez tab, l 20:30: Ahmed Route: PO, Jake n 00 Drug form: TAB, Q6H, PRN Nausea & Vomiting, Start date: 08/20/11 14:30:00, Duration: 30 day, Stop date: 09/19/11 14:29:00 Compazine 0 No Bism[place] 5 mg, 1 Mem oria 3-01 Rodriguez tab, l 20:30: Ahmed Route: PO, Jake n 00 Drug form: TAB, Q6H, PRN Nausea & Vomiting, Start date: 08/20/11 14:30:00, Duration: 30 day, Stop date: 09/19/11 14:29:00 Zofran 2012-0 No [place]ism[place] 4 mg, 2 Memori a 3-01 Rodriguez mL, Route: l 17:15: Ahmed IVP, Drug [place] 00 form: INJ, Q8H, PRN Nausea, Start date: 08/20/11 11:15:00, Duration: 30 day, Stop date: 09/19/11 11:14:00 Zofran 2012-0 No [place] 4 mg, 2 Memori a 3-01 Rodriguez mL, Route: l 17:15: Ahmed IVP, Drug Vin 00 form: INJ, Q8H, PRN Nausea, Start date: 08/20/11 11:15:00, Duration: 30 day, Stop date: 09/19/11 11:14:00 Zofran 2012-0 No [place] 4 mg, 2 Memori a 3-01 Rodriguez mL, Route: l 17:15: Ahmed IVP, Drug Vin 00 form: INJ, Q8H, PRN Nausea, Start date: 08/20/11 11:15:00, Duration: 30 day, Stop date: 09/19/11 11:14:00 Zofran 2012-0 No [place] 4 mg, 2 Memori a 3-01 Rodriguez mL, Route: l 17:15: Ahmed IVP, Drug Vin 00 form: INJ, Q8H, PRN Nausea, Start date: 08/20/11 11:15:00, Duration: 30 day, Stop date: 09/19/11 11:14:00 Zofran 2012-0 No [place] 4 mg, 2 Memori a 3-01 Rodriguez mL, Route: l 17:15: Ahmed IVP, Drug [place] 00 form: INJ, Q8H, PRN Nausea, Start date: 08/20/11 11:15:00, Duration: 30 day, Stop date: 09/19/11 11:14:00 Zofran 2012-0 No [place] 4 mg, 2 Memori a 3-01 Rodriguez mL, Route: l 17:15: Ahmed IVP, Drug Vin 00 form: INJ, Q8H, PRN Nausea, Start date: 08/20/11 11:15:00, Duration: 30 day, Stop date: 09/19/11 11:14:00 insulin 2011-0 No Yury 10 unit, 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 08-19 Gato Route: l H 16:00: Rivero SUB-Q, Nidia nn 00 ONCE, Start date: 08/20/11 10:00:00, Stop date: 08/20/11 10:00:00 insulin 2011-0 No Yury 10 unit, 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 08-19 Gato Route: l H 16:00: Rivero SUB-Q, Nidia nn 00 ONCE, Start date: 08/20/11 10:00:00, Stop date: 08/20/11 10:00:00 insulin 2011-0 No Yury 10 unit, 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 08-19 Gato Route: l H 16:00: Rivero SUB-Q, Nidia nn 00 ONCE, Start date: 08/20/11 10:00:00, Stop date: 08/20/11 10:00:00 insulin 2011-0 No Yury 10 unit, 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 08-19 Gato Route: l H 16:00: Rivero SUB-Q, Nidia nn 00 ONCE, Start date: 08/20/11 10:00:00, Stop date: 08/20/11 10:00:00 insulin 2011-0 No Yury 10 unit, 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 08-19 Gato Route: l H 16:00: Rivero SUB-Q, Nidia nn 00 ONCE, Start date: 08/20/11 10:00:00, Stop date: 08/20/11 10:00:00 insulin 2011-0 No Yury 10 unit, 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 08-19 Gato Route: l H 16:00: Rivero SUB-Q, Nidia nn 00 ONCE, Start date: 08/20/11 10:00:00, Stop date: 08/20/11 10:00:00 trazodone 2011-0 Yes 200 mg, 2 Mem oria 100 mg oral 3- tab, PO, l tablet 15:37: Bedtime, [place] 27 90 tab, Substituti on Allowed, TAB trazodone 2012-0 Yes 200 mg, 2 Mem oria 100 mg oral 3-01 tab, PO, l tablet 15:37: Bedtime, Vin 27 90 tab, Substituti on Allowed, TAB trazodone 2012-0 Yes 200 mg, 2 Mem oria 100 mg oral 3-01 tab, PO, l tablet 15:37: Bedtime, Vin 27 90 tab, Substituti on Allowed, TAB trazodone 2012-0 Yes 200 mg, 2 Mem oria 100 mg oral 3-01 tab, PO, l tablet 15:37: Bedtime, [place] 27 90 tab, Substituti on Allowed, TAB trazodone 2012-0 Yes 200 mg, 2 Mem oria 100 mg oral 3-01 tab, PO, l tablet 15:37: Bedtime, [place] 27 90 tab, Substituti on Allowed, TAB trazodone 2012-0 Yes 200 mg, 2 Mem oria 100 mg oral 3-01 tab, PO, l tablet 15:37: Bedtime, Vin 27 90 tab, Substituti on Allowed, TAB benztropine 2012-0 Yes 1 mg, 1 Mem oria 1 mg oral 3-01 tab, PO, l tablet 15:35: BID, 60 [place] 25 tab, Substituti on Allowed, TAB benztropine 2012-0 Yes 1 mg, 1 Mem oria 1 mg oral 3-01 tab, PO, l tablet 15:35: BID, 60 [place] 25 tab, Substituti on Allowed, TAB benztropine 2012-0 Yes 1 mg, 1 Mem oria 1 mg oral 3-01 tab, PO, l tablet 15:35: BID, 60 Vin 25 tab, Substituti on Allowed, TAB benztropine 2012-0 Yes 1 mg, 1 Mem oria 1 mg oral 3-01 tab, PO, l tablet 15:35: BID, 60 [place] 25 tab, Substituti on Allowed, TAB benztropine 2012-0 Yes 1 mg, 1 Mem oria 1 mg oral 3-01 tab, PO, l tablet 15:35: BID, 60 [place] 25 tab, Substituti on Allowed, TAB benztropine 2012-0 Yes 1 mg, 1 Mem oria 1 mg oral 3-01 tab, PO, l tablet 15:35: BID, 60 [place] 25 tab, Substituti on Allowed, TAB Geodon 60 2011-0 Yes 120 mg, 2 Mem oria mg oral 3-01 cap, PO, l capsule 15:35: Bedtime, Jake n 12 60 cap, Substituti on Allowed, CAP Geodon 60 2011-0 Yes 120 mg, 2 Mem oria mg oral 3-01 cap, PO, l capsule 15:35: Bedtime, Jake n 12 60 cap, Substituti on Allowed, CAP Geodon 60 2011- Yes 120 mg, 2 Mem oria mg oral 3-01 cap, PO, l capsule 15:35: Bedtime, Jake n 12 60 cap, Substituti on Allowed, CAP Geodon 60 2011-0 Yes 120 mg, 2 Mem oria mg oral 3-01 cap, PO, l capsule 15:35: Bedtime, Jake n 12 60 cap, Substituti on Allowed, CAP Geodon 60 2011-0 Yes 120 mg, 2 Mem oria mg oral 3-01 cap, PO, l capsule 15:35: Bedtime, Jake n 12 60 cap, Substituti on Allowed, CAP Geodon 60 2011- Yes 120 mg, 2 Mem oria mg oral 3-01 cap, PO, l capsule 15:35: Bedtime, Jake n 12 60 cap, Substituti on Allowed, CAP insulin 0 No Yury 10 unit, 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 08-19 Gato Route: l H 15:00: Rivero SUB-Q, Nidia nn 00 Q12H, Start date: 08/20/11 9:00:00, Duration: 30 day, Stop date: 09/18/11 21:00:00 Geodon 2011-0 No Yury 60 mg, 3 Mendoza janice - Gato cap, l 15:00: Rivero Route: PO, H erm Drug form: CAP, BID, Start date: 08/20/11 9:00:00, Duration: 30 day, Stop date: 09/18/11 17:00:00 Effexor XR 0 No Yury 75 mg, 1 Memoria -01 Gato cap, l 15:00: Rivero Route: PO, H erm 00 Drug form: ERCAP, Daily, Start date: 08/20/11 9:00:00, Duration: 30 day, Stop date: 09/18/11 9:00:00 insulin 2011-0 No Yury 10 unit, 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 3-01 Gato Route: l H 15:00: Rivero SUB-Q, Nidia nn 00 Q12H, Start date: 08/20/11 9:00:00, Duration: 30 day, Stop date: 09/18/11 21:00:00 Geodon 2011-0 No Yury 60 mg, 3 Mendoza janice 3-01 Gato cap, l 15:00: Rivero Route: PO, H ermann 00 Drug form: CAP, BID, Start date: 08/20/11 9:00:00, Duration: 30 day, Stop date: 09/18/11 17:00:00 Effexor XR 2011-0 No Yury 75 mg, 1 Memoria 3-01 Gato cap, l 15:00: Rivero Route: PO, H ermann 00 Drug form: ERCAP, Daily, Start date: 08/20/11 9:00:00, Duration: 30 day, Stop date: 09/18/11 9:00:00 insulin 2011-0 No Yury 10 unit, 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 3-01 Gato Route: l H 15:00: Rivero SUB-Q, Nidia nn 00 Q12H, Start date: 08/20/11 9:00:00, Duration: 30 day, Stop date: 09/18/11 21:00:00 Geodon 2011-0 No Yury 60 mg, 3 Mendoza janice 3-01 Gato cap, l 15:00: Rivero Route: PO, H ermann 00 Drug form: CAP, BID, Start date: 08/20/11 9:00:00, Duration: 30 day, Stop date: 09/18/11 17:00:00 Effexor XR 2011-0 No Yury 75 mg, 1 Memoria 3-01 Gato cap, l 15:00: Rivero Route: PO, H ermann 00 Drug form: ERCAP, Daily, Start date: 08/20/11 9:00:00, Duration: 30 day, Stop date: 09/18/11 9:00:00 insulin 2011-0 No Yury 10 unit, 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 3-01 Gato Route: l H 15:00: Rivero SUB-Q, Nidia nn 00 Q12H, Start date: 08/20/11 9:00:00, Duration: 30 day, Stop date: 09/18/11 21:00:00 Geodon 2011-0 No Yury 60 mg, 3 Mendoza janice 3-01 Gato cap, l 15:00: Rivero Route: PO, H ermann 00 Drug form: CAP, BID, Start date: 08/20/11 9:00:00, Duration: 30 day, Stop date: 09/18/11 17:00:00 Effexor XR 2011-0 No Yury 75 mg, 1 Memoria 3-01 Gato cap, l 15:00: Rivero Route: PO, H ermann 00 Drug form: ERCAP, Daily, Start date: 08/20/11 9:00:00, Duration: 30 day, Stop date: 09/18/11 9:00:00 insulin 2011-0 No Yury 10 unit, 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 - Gato Route: l H 15:00: Rivero SUB-Q, Nidia nn 00 Q12H, Start date: 08/20/11 9:00:00, Duration: 30 day, Stop date: 09/18/11 21:00:00 Geodon 2011-0 No Yury 60 mg, 3 Mendoza janice 3- G[place] cap, l 15:00: Rivero Route: PO, H ermann 00 Drug form: CAP, BID, Start date: 08/20/11 9:00:00, Duration: 30 day, Stop date: 09/18/11 17:00:00 Effexor XR 2011-0 No Yury 75 mg, 1 Memoria 3-01 Gato cap, l 15:00: Rivero Route: PO, H ermann 00 Drug form: ERCAP, Daily, Start date: 08/20/11 9:00:00, Duration: 30 day, Stop date: 09/18/11 9:00:00 insulin 2011-0 No Yury 10 unit, 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 3-01 Gato Route: l H 15:00: Rivero SUB-Q, Nidia nn 00 Q12H, Start date: 08/20/11 9:00:00, Duration: 30 day, Stop date: 09/18/11 21:00:00 Geodon 2012-0 No Yury 60 mg, 3 Mendoza janice 3-01 G[place] cap, l 15:00: Rivero Route: PO, H erm Drug form: CAP, BID, Start date: 08/20/11 9:00:00, Duration: 30 day, Stop date: 09/18/11 17:00:00 Effexor XR 2011-0 No Yury 75 mg, 1 Memoria 3-01 Gato cap, l 15:00: Rivero Route: PO, H Drug form: ERCAP, Daily, Start date: 08/20/11 9:00:00, Duration: 30 day, Stop date: 09/18/11 9:00:00 potassium 2011-0 No Yury 15 mmol, 5 Memoria phosphate 3-01 Gato mL, Route: l 14:30: Rivero IV, ONCE, He rm Start date: 08/20/11 8:30:00, Stop date: 08/20/11 8:30:00 potassium 2012-0 No Yury 15 mmol, 5 Memoria phosphate 3-01 Gato mL, Route: l 14:30: Rivero IV, ONCE, He rm Start date: 08/20/11 8:30:00, Stop date: 08/20/11 8:30:00 potassium 2012-0 No Yury 15 mmol, 5 Memoria phosphate 3-01 Gato mL, Route: l 14:30: Rivero IV, ONCE, He rm Start date: 08/20/11 8:30:00, Stop date: 08/20/11 8:30:00 potassium 2012-0 No Yury 15 mmol, 5 Memoria phosphate 3-01 Gato mL, Route: l 14:30: Rivero IV, ONCE, He rm Start date: 08/20/11 8:30:00, Stop date: 08/20/11 8:30:00 potassium 2012-0 No Yury 15 mmol, 5 Memoria phosphate 3-01 Gato mL, Route: l 14:30: Rivero IV, ONCE, He rm Start date: 08/20/11 8:30:00, Stop date: 08/20/11 8:30:00 potassium 2012-0 No Yury 15 mmol, 5 Memoria phosphate 3-01 Gato mL, Route: l 14:30: Rivero IV, ONCE, He rm 00 Start date: 08/20/11 8:30:00, Stop date: 08/20/11 8:30:00 potassium 2012-0 No Yury 20 mEq, Me moria chloride 3-01 Gato 100 mL, l 14:00: Rivero Route: Nidia nn IVPB, Drug form: INJ, Q2H, Total dose = 80 mEq, Start date: 08/20/11 8:00:00, Duration: 4 doses or times, Stop date: 08/20/11 14:00:00 potassium 2012-0 No Yury 20 mEq, Me moria chloride 3-01 Gato 100 mL, l 14:00: Rivero Route: Nidia nn 00 IVPB, Drug form: INJ, Q2H, Total dose = 80 mEq, Start date: 08/20/11 8:00:00, Duration: 4 doses or times, Stop date: 08/20/11 14:00:00 potassium 2012-0 No Yury 20 mEq, Me moria chloride 3-01 Gato 100 mL, l 14:00: Rivero Route: Nidia nn IVPB, Drug form: INJ, Q2H, Total dose = 80 mEq, Start date: 08/20/11 8:00:00, Duration: 4 doses or times, Stop date: 08/20/11 14:00:00 potassium 2012-0 No Yury 20 mEq, Me moria chloride 3-01 Gato 100 mL, l 14:00: Rivero Route: Nidia nn IVPB, Drug form: INJ, Q2H, Total dose = 80 mEq, Start date: 08/20/11 8:00:00, Duration: 4 doses or times, Stop date: 08/20/11 14:00:00 potassium 2012-0 No Yury 20 mEq, Me moria chloride 3-01 Gato 100 mL, l 14:00: Rivero Route: Nidia nn 00 IVPB, Drug form: INJ, Q2H, Total dose = 80 mEq, Start date: 08/20/11 8:00:00, Duration: 4 doses or times, Stop date: 08/20/11 14:00:00 potassium 2011-0 No Yury 20 mEq, Me moria chloride 08-19 Gato 100 mL, l 14:00: Rivero Route: Nidia nn 00 IVPB, Drug form: INJ, Q2H, Total dose = 80 mEq, Start date: 08/20/11 8:00:00, Duration: 4 doses or times, Stop date: 08/20/11 14:00:00 potassium 2011-0 No Yuyr 15 mmol, M emoria phosphate 08-19 Gato Route: l 12:47: Rivero IVPB, PRN, H ermann 00 PRN Abnormal Lab Result, Start date: 08/20/11 6:47:00, Duration: 30 day, Stop date: 09/19/11 7:46:00 potassium 2011-0 No Yury 15 mmol, M emoria phosphate 08-19 Gato Route: l 12:47: Rivero IVPB, PRN, H ermann 00 PRN Abnormal Lab Result, Start date: 08/20/11 6:47:00, Duration: 30 day, Stop date: 09/19/11 7:46:00 potassium 2011-0 No Yury 15 mmol, M emoria phosphate 08-19 Gato Route: l 12:47: Rivero IVPB, PRN, H ermann 00 PRN Abnormal Lab Result, Start date: 08/20/11 6:47:00, Duration: 30 day, Stop date: 09/19/11 7:46:00 potassium 2011-0 No Yury 15 mmol, M emoria phosphate 08-19 Gato Route: l 12:47: Rivero IVPB, PRN, H ermann 00 PRN Abnormal Lab Result, Start date: 08/20/11 6:47:00, Duration: 30 day, Stop date: 09/19/11 7:46:00 potassium 2011-0 No Yury 15 mmol, M emoria phosphate 08-19 Gato Route: l 12:47: Rivero IVPB, PRN, H ermann 00 PRN Abnormal Lab Result, Start date: 08/20/11 6:47:00, Duration: 30 day, Stop date: 09/19/11 7:46:00 potassium 2011-0 No Yury 15 mmol, M emoria phosphate 3-01 Gato Route: l 12:47: Rivero IVPB, PRN, H ermann 00 PRN Abnormal Lab Result, Start date: 08/20/11 6:47:00, Duration: 30 day, Stop date: 09/19/11 7:46:00 Insulin 2011-0 No Yury 6 unit, Mendoza janice regular 3-01 Gato 0.06 mL, l 09:38: Rivero Route: Nidia nn 00 SUB-Q, Drug form: SOLN, ONCE, Start date: 08/20/11 3:38:00, Stop date: 08/20/11 3:38:00 Insulin 2011-0 No Yury 6 unit, Mendoza janice regular 3-01 Gato 0.06 mL, l 09:38: Rivero Route: Ndiia nn 00 SUB-Q, Drug form: SOLN, ONCE, Start date: 08/20/11 3:38:00, Stop date: 08/20/11 3:38:00 Insulin 2011-0 No Yury 6 unit, Mendoza janice regular 3-01 Gato 0.06 mL, l 09:38: Rivero Route: Nidia nn 00 SUB-Q, Drug form: SOLN, ONCE, Start date: 08/20/11 3:38:00, Stop date: 08/20/11 3:38:00 Insulin 2011-0 No Yury 6 unit, Mendoza janice regular 3-01 Gato 0.06 mL, l 09:38: Rivero Route: Nidia nn SUB-Q, Drug form: SOLN, ONCE, Start date: 08/20/11 3:38:00, Stop date: 08/20/11 3:38:00 Insulin 2011-0 No Yury 6 unit, Mendoza janice regular 3-01 Gato 0.06 mL, l 09:38: Rivero Route: Nidia nn 00 SUB-Q, Drug form: SOLN, ONCE, Start date: 08/20/11 3:38:00, Stop date: 08/20/11 3:38:00 Insulin 2011-0 No Yury 6 unit, Mendoza janice regular 3-01 Gato 0.06 mL, l 09:38: Rivero Route: Nidia nn 00 SUB-Q, Drug form: SOLN, ONCE, Start date: 08/20/11 3:38:00, Stop date: 08/20/11 3:38:00 Insulin 2012-0 No Velásquez Noam 10 unit, Memoria regular - Akmal SUB-Q, l 09:28: BID, [place] 23 Substituti on Allowed Insulin 2011-0 No Velásquez Noam 10 unit, Memoria regular - Akmal SUB-Q, l 09:28: BID, [place] 23 Substituti on Allowed Insulin 2011-0 No Velásquez Noam 10 unit, Memoria regular - Akmal SUB-Q, l 09:28: BID, [place] 23 Substituti on Allowed Insulin 2011-0 No Velásquez Noam 10 unit, Memoria regular - Akmal SUB-Q, l 09:28: BID, Vin 23 Substituti on Allowed Insulin 2011-0 No Velásquez Noam 10 unit, Memoria regular - Akmal SUB-Q, l 09:28: BID, [place] 23 Substituti on Allowed Insulin 2011-0 No Velásquez Noam 10 unit, Memoria regular 08-19 Akmal SUB-Q, l 09:28: BID, [place] 23 Substituti on Allowed insulin 2012-0 No 10 unit, Memori a isophane-BUSINESS OFFICE ASSISTANT - SUB-Q, l H 09:26: BID, Vin 18 Substituti on Allowed insulin 2012-0 No 10 unit, Memori a isophane-BUSINESS OFFICE ASSISTANT - SUB-Q, l H 09:26: BID, Vin 18 Substituti on Allowed insulin 2011-0 No 10 unit, Memori a isophane-BUSINESS OFFICE ASSISTANT - SUB-Q, l H 09:26: BID, Vin 18 Substituti on Allowed insulin 2012-0 No 10 unit, Memori a isophane-BUSINESS OFFICE ASSISTANT - SUB-Q, l H 09:26: BID, [place] 18 Substituti on Allowed insulin 2012-0 No 10 unit, Memori a isophane-BUSINESS OFFICE ASSISTANT - SUB-Q, l H 09:26: BID, [place] 18 Substituti on Allowed insulin 2012-0 No 10 unit, Memori a isophane-BUSINESS OFFICE ASSISTANT - SUB-Q, l H 09:26: BID, Vin 18 Substituti on Allowed NS 1,000 mL No Velásquez Noam 1,000 mL, Memoria 3- Akmal Rate: 150 l 09:06: ml/hr, [place] 00 Infuse over: 6.7 hr, Route: IV, Total Volume: 1,000, Start date: 08/20/11 3:06:00, Duration: 30 day, Stop date: 09/19/11 3:05:00 insulin 2011- No Yury 3 unit, Mendoza janice aspart 3-01 Gato 0.03 mL, l 09:06: Rivero Route: Nidia nn 00 SUB-Q, Drug form: SOLN, Bedtime, PRN Blood Glucose Results, Start date: 08/20/11 3:06:00, Duration: 30 day, Stop date: 09/19/11 3:05:00 NS 1,000 mL No Velásquez Noam 1,000 mL, Memoria 3- Akmal Rate: 150 l 09:06: ml/hr, [place] 00 Infuse over: 6.7 hr, Route: IV, Total Volume: 1,000, Start date: 08/20/11 3:06:00, Duration: 30 day, Stop date: 09/19/11 3:05:00 insulin 2011- No Yury 3 unit, Mendoza janice aspart 3-01 Gato 0.03 mL, l 09:06: Rivero Route: Nidia nn 00 SUB-Q, Drug form: SOLN, Bedtime, PRN Blood Glucose Results, Start date: 08/20/11 3:06:00, Duration: 30 day, Stop date: 09/19/11 3:05:00 NS 1,000 mL No Velásquez Noam 1,000 mL, Memoria 3- Akmal Rate: 150 l 09:06: ml/hr, [place] 00 Infuse over: 6.7 hr, Route: IV, Total Volume: 1,000, Start date: 08/20/11 3:06:00, Duration: 30 day, Stop date: 09/19/11 3:05:00 insulin 2011- No Yury 3 unit, Mendoza janice aspart 3-01 G[place] 0.03 mL, l 09:06: Rivero Route: Nidia nn 00 SUB-Q, Drug form: SOLN, Bedtime, PRN Blood Glucose Results, Start date: 08/20/11 3:06:00, Duration: 30 day, Stop date: 09/19/11 3:05:00 NS 1,000 mL 2011-0 No Velásquez Noam 1,000 mL, Memoria 3-01 Akmal Rate: 150 l 09:06: ml/hr, Vin 00 Infuse over: 6.7 hr, Route: IV, Total Volume: 1,000, Start date: 08/20/11 3:06:00, Duration: 30 day, Stop date: 09/19/11 3:05:00 insulin 2011- No Yury 3 unit, Mendoza janice aspart 3-01 Gato 0.03 mL, l 09:06: Rivero Route: Nidia nn 00 SUB-Q, Drug form: SOLN, Bedtime, PRN Blood Glucose Results, Start date: 08/20/11 3:06:00, Duration: 30 day, Stop date: 09/19/11 3:05:00 NS 1,000 mL No Velásquez Noam 1,000 mL, Memoria 3- Akmal Rate: 150 l 09:06: ml/hr, [place] 00 Infuse over: 6.7 hr, Route: IV, Total Volume: 1,000, Start date: 08/20/11 3:06:00, Duration: 30 day, Stop date: 09/19/11 3:05:00 insulin 2011-0 No Yury 3 unit, Mendoza janice aspart 3-01 Gato 0.03 mL, l 09:06: [place]o Route: Nidia nn 00 SUB-Q, Drug form: SOLN, Bedtime, PRN Blood Glucose Results, Start date: 08/20/11 3:06:00, Duration: 30 day, Stop date: 09/19/11 3:05:00 NS 1,000 mL 2011-0 No Velásquez Noam 1,000 mL, Memoria 3-01 Akmal Rate: 150 l 09:06: ml/hr, Vin 00 Infuse over: 6.7 hr, Route: IV, Total Volume: 1,000, Start date: 08/20/11 3:06:00, Duration: 30 day, Stop date: 09/19/11 3:05:00 insulin 2011-0 No Yury 3 unit, Mendoza janice aspart 3-01 [place] 0.03 mL, l 09:06: [place]o Route: Nidia nn 00 SUB-Q, Drug form: SOLN, Bedtime, PRN Blood Glucose Results, Start date: 08/20/11 3:06:00, Duration: 30 day, Stop date: 09/19/11 3:05:00 enoxaparin 2011-0 No Yury 40 mg, 0.4 Memoria 3-01 [place]ato mL, Route: l 09:00: Rivero SUB-Q, Nidia nn 00 Drug form: INJ, Daily, Priority: Routine, Start date: 08/20/11 3:00:00, Duration: 30 day, Stop date: 09/18/11 9:00:00 enoxaparin 2012-0 No Yury 40 mg, 0.4 Memoria 3-01 [place] mL, Route: l 09:00: Rivero SUB-Q, Nidia nn 00 Drug form: INJ, Daily, Priority: Routine, Start date: 08/20/11 3:00:00, Duration: 30 day, Stop date: 09/18/11 9:00:00 enoxaparin 2012-0 No Yury 40 mg, 0.4 Memoria 3-01 [place] mL, Route: l 09:00: Rivero SUB-Q, Nidia nn 00 Drug form: INJ, Daily, Priority: Routine, Start date: 08/20/11 3:00:00, Duration: 30 day, Stop date: 09/18/11 9:00:00 enoxaparin 2012-0 No Yury 40 mg, 0.4 Memoria 3-01 [place] mL, Route: l 09:00: Rivero SUB-Q, Nidia nn 00 Drug form: INJ, Daily, Priority: Routine, Start date: 08/20/11 3:00:00, Duration: 30 day, Stop date: 09/18/11 9:00:00 enoxaparin 2012-0 No Yury 40 mg, 0.4 Memoria 3-01 [place]ato mL, Route: l 09:00: Rivero SUB-Q, Nidia nn 00 Drug form: INJ, Daily, Priority: Routine, Start date: 08/20/11 3:00:00, Duration: 30 day, Stop date: 09/18/11 9:00:00 enoxaparin 2011-0 No Yury 40 mg, 0.4 Memoria 3-01 [place] mL, Route: l 09:00: [place]o SUB-Q, Nidia nn 00 Drug form: INJ, Daily, Priority: Routine, Start date: 08/20/11 3:00:00, Duration: 30 day, Stop date: 09/18/11 9:00:00 insulin 2011-0 No Yury 18 unit, 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 3-01 Gato 0.18 mL, l H 08:58: Rivero Route: Nidia nn 00 SUB-Q, Drug form: INJ, Q12H, Start date: 08/20/11 2:58:00, Stop date: 09/18/11 21:00:00 insulin 2011-0 No Yury 18 unit, 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 3-01 Gato 0.18 mL, l H 08:58: Rivero Route: Nidia nn 00 SUB-Q, Drug form: INJ, Q12H, Start date: 08/20/11 2:58:00, Stop date: 09/18/11 21:00:00 insulin 2011-0 No Yury 18 unit, 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 3-01 Gato 0.18 mL, l H 08:58: [place]o Route: Nidia nn 00 SUB-Q, Drug form: INJ, Q12H, Start date: 08/20/11 2:58:00, Stop date: 09/18/11 21:00:00 insulin 2011-0 No Yury 18 unit, 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 3-01 Gato 0.18 mL, l H 08:58: Rivero Route: Nidia nn 00 SUB-Q, Drug form: INJ, Q12H, Start date: 08/20/11 2:58:00, Stop date: 09/18/11 21:00:00 insulin 2011-0 No Yury 18 unit, 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 3-01 Gato 0.18 mL, l H 08:58: Riveor Route: Nidia nn 00 SUB-Q, Drug form: INJ, Q12H, Start date: 08/20/11 2:58:00, Stop date: 09/18/11 21:00:00 insulin 2011-0 No Yury 18 unit, 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 3- Gato 0.18 mL, l H 08:58: [place]o Route: Nidia nn 00 SUB-Q, Drug form: INJ, Q12H, Start date: 08/20/11 2:58:00, Stop date: 09/18/11 21:00:00 insulin 2011-0 No Yruy 2 unit, Mendoza janice aspart 3-01 Gato 0.02 mL, l 08:48: [place] Route: Nidia nn 00 SUB-Q, Drug form: SOLN, TID-Before Meals, PRN Blood Glucose Results, Start date: 08/20/11 2:48:00, Duration: 30 day, Stop date: 09/19/11 2:47:00 glucagon 2011-0 No Yury 1 mg, Memor ia 3- Gato Route: IM, l 08:48: Rivero Drug form: H ermann 00 PDR/INJ, PRN, PRN Blood Glucose Results, Start date: 08/20/11 2:48:00, Duration: 30 day, Stop date: 09/19/11 3:47:00 Dextrose 2011-0 No Yury 25 gm, 50 M emoria 50% Syringe 3-01 Gato mL, Route: l 08:48: Rivero IVP, Drug He rm Form: INJ, PRN, PRN Blood Glucose Results, Start date: 08/20/11 2:48:00, Duration: 30 day, Stop date: 09/19/11 3:47:00 Insulin 2011-0 No Yury 3 unit, Mendoza janice regular 3-01 Gato Route: l 08:48: Rivero SUB-Q, Nidia nn 00 Bedtime, PRN Blood Glucose Results, Start date: 08/20/11 2:48:00, Duration: 30 day, Stop date: 09/19/11 2:47:00 insulin 2011-0 No Yury 2 unit, Mendoza janice aspart 3-01 Gato 0.02 mL, l 08:48: [place]o Route: Nidia nn 00 SUB-Q, Drug form: SOLN, TID-Before Meals, PRN Blood Glucose Results, Start date: 08/20/11 2:48:00, Duration: 30 day, Stop date: 09/19/11 2:47:00 glucagon 2011-0 No Yury 1 mg, Memor ia 3- Gato Route: IM, l 08:48: Rivero Drug form: H ermann PDR/INJ, PRN, PRN Blood Glucose Results, Start date: 08/20/11 2:48:00, Duration: 30 day, Stop date: 09/19/11 3:47:00 Dextrose 2011-0 No Yury 25 gm, 50 M emoria 50% Syringe 3-01 Gato mL, Route: l 08:48: [place] IVP, Drug He rm Form: INJ, PRN, PRN Blood Glucose Results, Start date: 08/20/11 2:48:00, Duration: 30 day, Stop date: 09/19/11 3:47:00 Insulin 2011-0 No Yury 3 unit, Mendoza janice regular 3- Gato Route: l 08:48: Rivero SUB-Q, Nidia nn 00 Bedtime, PRN Blood Glucose Results, Start date: 08/20/11 2:48:00, Duration: 30 day, Stop date: 09/19/11 2:47:00 insulin 2011-0 No Yury 2 unit, Mendoza janice aspart 3- Gato 0.02 mL, l 08:48: Rivero Route: Nidia nn 00 SUB-Q, Drug form: SOLN, TID-Before Meals, PRN Blood Glucose Results, Start date: 08/20/11 2:48:00, Duration: 30 day, Stop date: 09/19/11 2:47:00 glucagon 2011-0 No Yury 1 mg, Memor ia 3-01 Gato Route: IM, l 08:48: Rivero Drug form: H ermann PDR/INJ, PRN, PRN Blood Glucose Results, Start date: 08/20/11 2:48:00, Duration: 30 day, Stop date: 09/19/11 3:47:00 Dextrose 2011-0 No Yury 25 gm, 50 M emoria 50% Syringe 3-01 Gato mL, Route: l 08:48: Rivero IVP, Drug He Form: INJ, PRN, PRN Blood Glucose Results, Start date: 08/20/11 2:48:00, Duration: 30 day, Stop date: 09/19/11 3:47:00 Insulin 2011-0 No Yury 3 unit, Mendoza janice regular - Gato Route: l 08:48: Rivero SUB-Q, Nidia nn 00 Bedtime, PRN Blood Glucose Results, Start date: 08/20/11 2:48:00, Duration: 30 day, Stop date: 09/19/11 2:47:00 insulin 2011-0 No Yury 2 unit, Mendoza janice aspart 3-01 Gato 0.02 mL, l 08:48: Rivero Route: Nidia nn 00 SUB-Q, Drug form: SOLN, TID-Before Meals, PRN Blood Glucose Results, Start date: 08/20/11 2:48:00, Duration: 30 day, Stop date: 09/19/11 2:47:00 glucagon 2011-0 No Yury 1 mg, Memor ia 3- Gato Route: IM, l 08:48: Rivero Drug form: H ermann PDR/INJ, PRN, PRN Blood Glucose Results, Start date: 08/20/11 2:48:00, Duration: 30 day, Stop date: 09/19/11 3:47:00 Dextrose 2011-0 [facility]- Gato mL, Route: l 08:48: Rivero IVP, Drug He Form: INJ, PRN, PRN Blood Glucose Results, Start date: 08/20/11 2:48:00, Duration: 30 day, Stop date: 09/19/11 3:47:00 Insulin 2011-0 No Yury 3 unit, Mendoza janice regular 3- Gato Route: l 08:48: Rivero SUB-Q, Nidia nn 00 Bedtime, PRN Blood Glucose Results, Start date: 08/20/11 2:48:00, Duration: 30 day, Stop date: 09/19/11 2:47:00 insulin 2011-0 No Yury 2 unit, Mendoza janice aspart 3-01 Gato 0.02 mL, l 08:48: Rivero Route: Nidia nn 00 SUB-Q, Drug form: SOLN, TID-Before Meals, PRN Blood Glucose Results, Start date: 08/20/11 2:48:00, Duration: 30 day, Stop date: 09/19/11 2:47:00 glucagon 2011-0 No Yury 1 mg, Memor ia 3- Gato Route: IM, l 08:48: Rivero Drug form: H ermann PDR/INJ, PRN, PRN Blood Glucose Results, Start date: 08/20/11 2:48:00, Duration: 30 day, Stop date: 09/19/11 3:47:00 Dextrose 2011-0 No Yury 25 gm, 50 M emoria 50% Syringe 3- Gato mL, Route: l 08:48: Rivero IVP, Drug He Form: INJ, PRN, PRN Blood Glucose Results, Start date: 08/20/11 2:48:00, Duration: 30 day, Stop date: 09/19/11 3:47:00 Insulin 2011-0 No Yury 3 unit, Mendoza janice regular - Gato Route: l 08:48: Rivero SUB-Q, Nidia nn 00 Bedtime, PRN Blood Glucose Results, Start date: 08/20/11 2:48:00, Duration: 30 day, Stop date: 09/19/11 2:47:00 insulin 2011-0 No Yury 2 unit, Mendoza janice aspart - Gato 0.02 mL, l 08:48: Rivero Route: Nidia nn 00 SUB-Q, Drug form: SOLN, TID-Before Meals, PRN Blood Glucose Results, Start date: 08/20/11 2:48:00, Duration: 30 day, Stop date: 09/19/11 2:47:00 glucagon 2011-0 No Yury 1 mg, [facility] 3- [place] Route: IM, l 08:48: Rivero Drug form: H ermann 00 PDR/INJ, PRN, PRN Blood Glucose Results, Start date: 08/20/11 2:48:00, Duration: 30 day, Stop date: 09/19/11 3:47:00 Dextrose 2011-0 No Yury 25 gm, 50 M emoria 50% Syringe 3-01 [place] mL, Route: l 08:48: Rivero IVP, Drug He rmann 00 Form: INJ, PRN, PRN Blood Glucose Results, Start date: 08/20/11 2:48:00, Duration: 30 day, Stop date: 09/19/11 3:47:00 Insulin 2011- No Yury 3 unit, Mendoza janice regular 3- [place] Route: l 08:48: Rivero SUB-Q, Nidia nn 00 Bedtime, PRN Blood Glucose Results, Start date: 08/20/11 2:48:00, Duration: 30 day, Stop date: 09/19/11 2:47:00 Dextrose 2011- No Yury 25 gm, 50 M emoria 50% Syringe -01 G[place] ml, Route: l 08:46: Rivero IVP, Drug He rmann 00 Form: INJ, PRN, PRN Blood Glucose Results, Start date: 08/20/11 2:46:00, Duration: 30 day, Stop date: 09/19/11 3:45:00 Dextrose 2011-0 No Yury 25 gm, 50 M emoria 50% Syringe 3-01 [place] ml, Route: l 08:46: Rivero IVP, Drug He rmann 00 Form: INJ, PRN, PRN Blood Glucose Results, Start date: 08/20/11 2:46:00, Duration: 30 day, Stop date: 09/19/11 3:45:00 Dextrose 2011-0 No Yury 25 gm, 50 M emoria 50% Syringe 3-01 [place] ml, Route: l 08:46: Rivero IVP, Drug He rmann 00 Form: INJ, PRN, PRN Blood Glucose Results, Start date: 08/20/11 2:46:00, Duration: 30 day, Stop date: 09/19/11 3:45:00 Dextrose 2011-0 No Yury 25 gm, 50 M emoria 50% Syringe 3-01 [place] ml, Route: l 08:46: Rivero IVP, Drug He rmann 00 Form: INJ, PRN, PRN Blood Glucose Results, Start date: 08/20/11 2:46:00, Duration: 30 day, Stop date: 09/19/11 3:45:00 Dextrose 2011-0 No Yury 25 gm, 50 M emoria 50% Syringe 3-01 Gato ml, Route: l 08:46: Rivero IVP, Drug He rmann 00 Form: INJ, PRN, PRN Blood Glucose Results, Start date: 08/20/11 2:46:00, Duration: 30 day, Stop date: 09/19/11 3:45:00 Dextrose 2011-0 No Yury 25 gm, 50 M emoria 50% Syringe 3 Gato ml, Route: l 08:46: Rivero IVP, Drug He rmann 00 Form: INJ, PRN, PRN Blood Glucose Results, Start date: 08/20/11 2:46:00, Duration: 30 day, Stop date: 09/19/11 3:45:00 ondansetron 2011-0 No Hughes-Jason 4 mg, emoria 08-19 [place] Route: l 07:42: Dawson IVP, Drug Herm naeem 00 Pu form: INJ, ONCE, Priority: STAT, Start date: 08/20/11 1:42:00, Stop date: 08/20/11 1:42:00 ondansetron 2011-0 No Hughes-Jason 4 mg, emoria 08-19 [place] Route: l 07:42: Dawson IVP, Drug Herm naeem 00 Pu form: INJ, ONCE, Priority: STAT, Start date: 08/20/11 1:42:00, Stop date: 08/20/11 1:42:00 ondansetron 2011-0 No Hughes-Jason 4 mg, emoria 08-19 [place] Route: l 07:42: Dawson IVP, Drug Herm naeem 00 Pu form: INJ, ONCE, Priority: STAT, Start date: 08/20/11 1:42:00, Stop date: 08/20/11 1:42:00 ondansetron 2011-0 No Hughes-Jason 4 mg, M emoria 08-19 [place] Route: l 07:42: Dawson IVP, Drug Herm naeem 00 Pu form: INJ, ONCE, Priority: STAT, Start date: 08/20/11 1:42:00, Stop date: 08/20/11 1:42:00 ondansetron 2012-0 No Hughes-Jason 4 mg, M emoria 08-19 [place] Route: l 07:42: Dawson IVP, Drug Herm naeem 00 Pu form: INJ, ONCE, Priority: STAT, Start date: 08/20/11 1:42:00, Stop date: 08/20/11 1:42:00 ondansetron 2011-0 No Hughes-Jason 4 mg, M emoria 08-19 [place] Route: l 07:42: Dawson IVP, Drug Herm naeem 00 Pu form: INJ, ONCE, Priority: STAT, Start date: 08/20/11 1:42:00, Stop date: 08/20/11 1:42:00 GI cocktail 2011-0 No Hughes-Jason 30 ml, Memoria 08-19 [place] Route: PO, l 05:12: Dawson Drug Form: Her braden 00 Pu SUSP, ONCE, STAT, Start date: 08/19/11 23:12:00, Stop date: 08/19/11 23:12:00 GI cocktail 0 No Hughes-Jason 30 ml, Memoria 08-19 [place] Route: PO, l 05:12: Dawson Drug Form: Her braden 00 Pu SUSP, ONCE, STAT, Start date: 08/19/11 23:12:00, Stop date: 08/19/11 23:12:00 GI cocktail 0 No Hughes-Jason 30 ml, Memoria 08-19 [place] Route: PO, l 05:12: Dawson Drug Form: Her braden 00 Pu SUSP, ONCE, STAT, Start date: 08/19/11 23:12:00, Stop date: 08/19/11 23:12:00 GI cocktail 0 No Hughes-Jason 30 ml, Memoria 08-19 [place] Route: PO, l 05:12: Dawson Drug Form: Her braden 00 Pu SUSP, ONCE, STAT, Start date: 08/19/11 23:12:00, Stop date: 08/19/11 23:12:00 GI cocktail 0 No Hughes-Jason 30 ml, Memoria 08-19 [place] Route: PO, l 05:12: Dawson Drug Form: Her braden 00 Pu SUSP, ONCE, STAT, Start date: 02/29/12 23:12:00, Stop date: 08/19/11 23:12:00 GI cocktail 2012-0 No Hughes-Jason 30 ml, Memoria 3- [place] Route: PO, l 05:12: Dawosn Drug Form: Her braden 00 Pu SUSP, ONCE, STAT, Start date: 08/19/11 23:12:00, Stop date: 08/19/11 23:12:00 ondansetron 2011-0 No Hughes-Jason 4 mg, M emoria 3- [place] Route: PO, l 05:10: Dawson Drug form: Her braden 00 Pu TABDIS, ONCE, Priority: STAT, Start date: 08/19/11 23:10:00, Stop date: 08/19/11 23:10:00 Lactated 2011-0 No Hughes-Jason 1,000 mL, Memoria Ringers - [place] Rate: l (Bolus) IV 05:10: Dawson 1,000 He rmann 1000 mL 00 Pu ml/hr, Infuse over: 1 hr, Route: IV, Total Volume: 1,000, Bolus Dose, Priority: STAT, Start date: 08/19/11 23:10:00, Duration: 1 doses or times, Stop date: 08/20/11 0:09:00 ondansetron 2011-0 No Hughes-Jason 4 mg, Deepali emoria 08-19 [place] Route: PO, l 05:10: Dawson Drug form: Her braden 00 Pu TABDIS, ONCE, Priority: STAT, Start date: 08/19/11 23:10:00, Stop date: 08/19/11 23:10:00 Lactated 2011-0 No Hughes-Jason 1,000 mL, Memoria Ringers - [place] Rate: l (Bolus) IV 05:10: Dawson 1,000 He rmann 1000 mL 00 Pu ml/hr, Infuse over: 1 hr, Route: IV, Total Volume: 1,000, Bolus Dose, Priority: STAT, Start date: 08/19/11 23:10:00, Duration: 1 doses or times, Stop date: 08/20/11 0:09:00 ondansetron 2011-0 No Hughes-Jason 4 mg, M emoria 3- [place] Route: PO, l 05:10: Dawson Drug form: Her braden 00 Pu TABDIS, ONCE, Priority: STAT, Start date: 08/19/11 23:10:00, Stop date: 08/19/11 23:10:00 Lactated 2012-0 No Hughes-Jason 1,000 mL, Memoria Ringers 3- [place] Rate: l (Bolus) IV 05:10: Dawson 1,000 He rmann 1000 mL 00 Pu ml/hr, Infuse over: 1 hr, Route: IV, Total Volume: 1,000, Bolus Dose, Priority: STAT, Start date: 08/19/11 23:10:00, Duration: 1 doses or times, Stop date: 08/20/11 0:09:00 ondansetron 2012-0 No Hughes-Jason 4 mg, M emoria 3- [place] Route: PO, l 05:10: Dawson Drug form: Her braden 00 Pu TABDIS, ONCE, Priority: STAT, Start date: 08/19/11 23:10:00, Stop date: 08/19/11 23:10:00 Lactated 2011-0 No Hughes-Jason 1,000 mL, Memoria Ringers 3- [place] Rate: l (Bolus) IV 05:10: Dawson 1,000 He rmann 1000 mL 00 Pu ml/hr, Infuse over: 1 hr, Route: IV, Total Volume: 1,000, Bolus Dose, Priority: STAT, Start date: 08/19/11 23:10:00, Duration: 1 doses or times, Stop date: 08/20/11 0:09:00 ondansetron 2012-0 No Hughes-Jason 4 mg, M emoria 3- [place] Route: PO, l 05:10: Eunice Drug form: Her braden 00 Pu TABDIS, ONCE, Priority: STAT, Start date: 08/19/11 23:10:00, Stop date: 08/19/11 23:10:00 Lactated 2011-0 No Hughes-Jason 1,000 mL, Memoria Ringers 3- [place] Rate: l (Bolus) IV 05:10: Dawson 1,000 He rmann 1000 mL 00 Pu ml/hr, Infuse over: 1 hr, Route: IV, Total Volume: 1,000, Bolus Dose, Priority: STAT, Start date: 08/19/11 23:10:00, Duration: 1 doses or times, Stop date: 08/20/11 0:09:00 ondansetron 2011- No Hughes-Jason 4 mg, Deepali nicholsonrinaun 08-19 [place] Route: PO, l 05:10: Dawson Drug form: Her braden 00 Pu TABDIS, ONCE, Priority: STAT, Start date: 08/19/11 23:10:00, Stop date: 08/19/11 23:10:00 Lactated 2011- No Hughes-Jason 1,000 mL, Memoria Ringers 08-19 [place] Rate: l (Bolus) IV 05:10: 1,000 He rmann 1000 mL 00 Pu ml/hr, Infuse over: 1 hr, Route: IV, Total Volume: 1,000, Bolus Dose, Priority: STAT, Start date: 08/19/11 23:10:00, Duration: 1 doses or times, Stop date: 08/20/11 0:09:00 Insulin 2011-0 No Hughes-Jason 7 unit, Mem oria regular 08-19 [place] 0.07 mL, l 04:15: Dawson Route: [place] 00 Pu SUB-Q, Drug form: SOLN, ONCE, Priority: STAT, Start date: 08/19/11 22:15:00, Stop date: 08/19/11 22:15:00 Insulin 2011-0 No Hughes-Jason 7 unit, Mem oria regular - [place] 0.07 mL, l 04:15: Dawson Route: Vin 00 Pu SUB-Q, Drug form: SOLN, ONCE, Priority: STAT, Start date: 08/19/11 22:15:00, Stop date: 08/19/11 22:15:00 Insulin 2011-0 No Hughes-Jason 7 unit, Mem oria regular 3-01 [place] 0.07 mL, l 04:15: Dawson Route: Vin 00 Pu SUB-Q, Drug form: SOLN, ONCE, Priority: STAT, Start date: 08/19/11 22:15:00, Stop date: 08/19/11 22:15:00 Insulin 2011-0 No Hughes-Jason 7 unit, Mem oria regular 3-01 [place] 0.07 mL, l 04:15: Dawson Route: Vin Pu SUB-Q, Drug form: SOLN, ONCE, Priority: STAT, Start date: 08/19/11 22:15:00, Stop date: 08/19/11 22:15:00 Insulin 2011-0 No Hughes-Jason 7 unit, Mem oria regular 3 [place] 0.07 mL, l 04:15: Dawson Route: Pu SUB-Q, Drug form: SOLN, ONCE, Priority: STAT, Start date: 08/19/11 22:15:00, Stop date: 08/19/11 22:15:00 Insulin 2011- No Hughes-Jason 7 unit, Mem oria regular 08-19 [place] 0.07 mL, l 04:15: Dawson Route: Pu SUB-Q, Drug form: SOLN, ONCE, Priority: STAT, Start date: 08/19/11 22:15:00, Stop date: 08/19/11 22:15:00 Geodon 60 No Yury 60 mg, 1 M emoria mg oral 2-29 [place] cap, PO, l capsule 23:24: Rivero BID, 180 Vin 43 cap, Substituti on Allowed, CAP Geodon 60 No Yury 60 mg, 1 M emoria mg oral 2-29 [place] cap, PO, l capsule 23:24: Rivero BID, 180 Vin 43 cap, Substituti on Allowed, CAP Geodon 60 No Yury 60 mg, 1 M emoria mg oral 2-29 [place] cap, PO, l capsule 23:24: Rivero BID, 180 Vin 43 cap, Substituti on Allowed, CAP Geodon 60 No Yury 60 mg, 1 M emoria mg oral 2-29 [place] cap, PO, l capsule 23:24: Rivero BID, 180 [place] 43 cap, Substituti on Allowed, CAP Geodon 60 No Yury 60 mg, 1 M emoria mg oral 2-29 [place] cap, PO, l capsule 23:24: Rivero BID, 180 [place] 43 cap, Substituti on Allowed, CAP Geodon 60 No Yury 60 mg, 1 M emoria mg oral 2-29 [place] cap, PO, l capsule 23:24: Rivero BID, 180 [place] 43 cap, Substituti on Allowed, CAP trazodone 2012-0 No 300 mg, 1 Mem oria 300 mg oral 2-29 tab, PO, l tablet 23:23: Bedtime, Vin 58 15 tab, Substituti on Allowed, TAB trazodone 2012-0 No 300 mg, 1 Mem oria 300 mg oral 2-29 tab, PO, l tablet 23:23: Bedtime, Vin 58 15 tab, Substituti on Allowed, TAB trazodone 2012-0 No 300 mg, 1 Mem oria 300 mg oral 2-29 tab, PO, l tablet 23:23: Bedtime, Vin 58 15 tab, Substituti on Allowed, TAB trazodone 2012-0 No 300 mg, 1 Mem oria 300 mg oral 2-29 tab, PO, l tablet 23:23: Bedtime, Vin 58 15 tab, Substituti on Allowed, TAB trazodone 2012-0 No 300 mg, 1 Mem oria 300 mg oral 2-29 tab, PO, l tablet 23:23: Bedtime, Vin 58 15 tab, Substituti on Allowed, TAB trazodone 2012-0 No 300 mg, 1 Mem oria 300 mg oral 2-29 tab, PO, l tablet 23:23: Bedtime, [place] 58 15 tab, Substituti on Allowed, TAB Effexor XR 2011-0 Yes Yury 75 mg, 1 Memoria 75 mg oral 2-29 [place] cap, PO, l capsule, 23:22: Rivero Daily, 30 [place] extended 24 cap, release Substituti on Allowed Effexor XR 2012-0 Yes Yury 75 mg, 1 Memoria 75 mg oral 2-29 [place] cap, PO, l capsule, 23:22: Rivero Daily, 30 Vin extended 24 cap, release Substituti on Allowed Effexor XR 2012-0 Yes Yury 75 mg, 1 Memoria 75 mg oral 2-29 [place] cap, PO, l capsule, 23:22: Rivero Daily, 30 Vin extended 24 cap, release Substituti on Allowed Effexor XR 2012-0 Yes Yury 75 mg, 1 Memoria 75 mg oral 2-29 [place] cap, PO, l capsule, 23:22: Rivero Daily, 30 [place] extended 24 cap, release Substituti on Allowed Effexor XR 2011-0 Yes Yury 75 mg, 1 Memoria 75 mg oral 2-29 [place] cap, PO, l capsule, 23:22: Rivero Daily, 30 [place] extended 24 cap, release Substituti on Allowed Effexor XR 2011-0 Yes Yury 75 mg, 1 Memoria 75 mg oral 2-29 [place] cap, PO, l capsule, 23:22: Rivero Daily, 30 Vin extended 24 cap, release Substituti on Allowed Lactated 2011-0 No Yury 1,000 mL, M emoria Ringers IV [place] Rate: 250 l 1,000 mL 23:03: Rviero ml/hr, H ermann 00 Infuse over: 4 hr, Route: IV, Total Volume: 1,000, Priority: STAT, Start date: 08/19/11 17:03:00, Duration: 30 day, Stop date: 09/18/11 17:02:00 Lactated 2011-0 No Yury 1,000 mL, M emoria Ringers IV [place] Rate: 250 l 1,000 mL 23:03: Rivero ml/hr, H ermann 00 Infuse over: 4 hr, Route: IV, Total Volume: 1,000, Priority: STAT, Start date: 08/19/11 17:03:00, Duration: 30 day, Stop date: 09/18/11 17:02:00 Lactated 2011-0 No Yury 1,000 mL, M emoria Ringers IV [place] Rate: 250 l 1,000 mL 23:03: Rivero ml/hr, H ermann 00 Infuse over: 4 hr, Route: IV, Total Volume: 1,000, Priority: STAT, Start date: 08/19/11 17:03:00, Duration: 30 day, Stop date: 09/18/11 17:02:00 Lactated 2011-0 No Yury 1,000 mL, M emoria Ringers IV [place] Rate: 250 l 1,000 mL 23:03: Rivero ml/hr, H ermann 00 Infuse over: 4 hr, Route: IV, Total Volume: 1,000, Priority: STAT, Start date: 08/19/11 17:03:00, Duration: 30 day, Stop date: 09/18/11 17:02:00 Lactated 2012-0 No Yury 1,000 mL, M emoria Ringers IV 2-29 [place] Rate: 250 l 1,000 mL 23:03: Rivero ml/hr, H ermann 00 Infuse over: 4 hr, Route: IV, Total Volume: 1,000, Priority: STAT, Start date: 08/19/11 17:03:00, Duration: 30 day, Stop date: 09/18/11 17:02:00 Lactated 2012-0 No Yury 1,000 mL, M emoria Ringers IV 2-29 [place] Rate: 250 l 1,000 mL 23:03: Rivero ml/hr, H ermann 00 Infuse over: 4 hr, Route: IV, Total Volume: 1,000, Priority: STAT, Start date: 08/19/11 17:03:00, Duration: 30 day, Stop date: 09/18/11 17:02:00 Sodium 2012-0 No Yury 100 mL, Memor ia Chloride 2-29 [place] Rate: l 0.9% 22:17: Rivero Titrate, Her braden (titrate) 00 Route: IV, 100 mL + Total Insulin Volume: (regular) 100 ml, Titrate IV Duration: additive 30 day, 100 unit Stop date: 09/18/11 16:16:00, Replace Every: 24 hr Sodium 2012-0 No Yury 100 mL, Memor ia Chloride 2-29 [place] Rate: l 0.9% 22:17: Rivero Titrate, Her braden (titrate) 00 Route: IV, 100 mL + Total Insulin Volume: (regular) 100 ml, Titrate IV Duration: additive 30 day, 100 unit Stop date: 09/18/11 16:16:00, Replace Every: 24 hr Sodium 2012-0 No Yury 100 mL, Memor ia Chloride 2-29 [place] Rate: l 0.9% 22:17: Rivero Titrate, Her braden (titrate) 00 Route: IV, 100 mL + Total Insulin Volume: (regular) 100 ml, Titrate IV Duration: additive 30 day, 100 unit Stop date: 09/18/11 16:16:00, Replace Every: 24 hr Sodium 2011-0 No Yury 100 mL, Memor ia Chloride [place] Rate: l 0.9% 22:17: Rivero Titrate, Her braden (titrate) 00 Route: IV, 100 mL + Total Insulin Volume: (regular) 100 ml, Titrate IV Duration: additive 30 day, 100 unit Stop date: 09/18/11 16:16:00, Replace Every: 24 hr Sodium 2011-0 No Yury 100 mL, Memor ia Chloride [place] Rate: l 0.9% 22:17: Rivero Titrate, Her braden (titrate) 00 Route: IV, 100 mL + Total Insulin Volume: (regular) 100 ml, Titrate IV Duration: additive 30 day, 100 unit Stop date: 09/18/11 16:16:00, Replace Every: 24 hr Sodium 2011-0 No Yury 100 mL, Memor ia Chloride [...] 08/19/11 16:04:00, Stop date: 08/19/11 16:04:00 Protonix 0 No William 40 mg, Memor ia [place] Route: l 22:04: Pooja IVP, Drug Jake n 00 form: INJ, ONCE, Start date: 08/19/11 16:04:00, Stop date: 08/19/11 16:04:00 GI cocktail 0 No William 40 mL, Me moria - [place] Route: PO, l 22:04: Pooja Drug Form: Nidia nn 00 SUSP, ONCE, STAT, Start date: 08/19/11 16:04:00, Stop date: 08/19/11 16:04:00 Protonix 2011-0 No William 40 mg, Memor ia [place] Route: l 22:04: Pooja IVP, Drug Jake n 00 form: INJ, ONCE, Start date: 08/19/11 16:04:00, Stop date: 08/19/11 16:04:00 GI cocktail 0 No William 40 mL, Me moria [place] Route: PO, l 22:04: Pooja Drug Form: Nidia nn 00 SUSP, ONCE, STAT, Start date: 08/19/11 16:04:00, Stop date: 08/19/11 16:04:00 Protonix 0 No William 40 mg, Memor ia [place] Route: l 22:04: Pooja IVP, Drug Jake n 00 form: INJ, ONCE, Start date: 08/19/11 16:04:00, Stop date: 08/19/11 16:04:00 GI cocktail 0 No William 40 mL, Az moria [place] Route: PO, l 22:04: Pooja Drug Form: Nidia nn 00 SUSP, ONCE, STAT, Start date: 08/19/11 16:04:00, Stop date: 08/19/11 16:04:00 Protonix 0 No William 40 mg, Memor ia [place] Route: l 22:04: Pooja IVP, Drug Jake n 00 form: INJ, ONCE, Start date: 08/19/11 16:04:00, Stop date: 08/19/11 16:04:00 GI cocktail 0 No William 40 mL, Me moria [place] Route: PO, l 22:04: Pooja Drug Form: Nidia nn 00 SUSP, ONCE, STAT, Start date: 08/19/11 16:04:00, Stop date: 08/19/11 16:04:00 Protonix 0 No William 40 mg, Memor ia [place] Route: l 22:04: Pooja IVP, Drug Jake n 00 form: INJ, ONCE, Start date: 08/19/11 16:04:00, Stop date: 08/19/11 16:04:00 GI cocktail 2012-0 No William 40 mL, Me moria 2-29 [place] Route: PO, l 22:04: Pooja Drug Form: Nidia nn 00 SUSP, ONCE, STAT, Start date: 08/19/11 16:04:00, Stop date: 08/19/11 16:04:00 Protonix 2011-0 No William 40 mg, Memor ia 2- [place] Route: l 22:04: Pooja IVP, Drug Jake n 00 form: INJ, ONCE, Start date: 08/19/11 16:04:00, Stop date: 08/19/11 16:04:00 ondansetron 2011-0 No William 8 mg, Mem oria 2-29 [place] Route: l 21:57: Pooja IVP, Drug Jake n 00 form: INJ, ONCE, Priority: STAT, Start date: 08/19/11 15:57:00, Stop date: 08/19/11 15:57:00 morphine 2011-0 No William 4 mg, Memori a Sulfate - [place] Route: l 21:57: Pooja IVP, ONCE, Nidia nn 00 Priority: STAT, Start date: 08/19/11 15:57:00, Stop date: 08/19/11 15:57:00 Reglan 2011-0 No William 10 mg, Memoria 2- [place] Route: IV, l 21:57: Pooja ONCE, Vin 00 Start date: 08/19/11 15:57:00, Stop date: 08/19/11 15:57:00 ondansetron 2011-0 No William 8 mg, Mem oria 2- [place] Route: l 21:57: Pooja IVP, Drug Jake n 00 form: INJ, ONCE, Priority: STAT, Start date: 08/19/11 15:57:00, Stop date: 08/19/11 15:57:00 morphine 2011-0 No William 4 mg, Memori a Sulfate 2-29 [place] Route: l 21:57: Pooja IVP, ONCE, Nidia nn 00 Priority: STAT, Start date: 08/19/11 15:57:00, Stop date: 08/19/11 15:57:00 Reglan 2011-0 No William 10 mg, Memoria 2-29 [place] Route: IV, l 21:57: Pooja ONCE, [place] 00 Start date: 08/19/11 15:57:00, Stop date: 08/19/11 15:57:00 ondansetron 2012-0 No William 8 mg, Mem oria 2-29 [place] Route: l 21:57: Pooja IVP, Drug Jake n 00 form: INJ, ONCE, Priority: STAT, Start date: 08/19/11 15:57:00, Stop date: 08/19/11 15:57:00 morphine 2011-0 No William 4 mg, Memori a Sulfate 2-29 [place] Route: l 21:57: Pooja IVP, ONCE, Nidia nn 00 Priority: STAT, Start date: 08/19/11 15:57:00, Stop date: 08/19/11 15:57:00 Reglan 2011-0 No William 10 mg, Memoria 2-29 [place] Route: IV, l 21:57: Pooja ONCE, Vin 00 Start date: 08/19/11 15:57:00, Stop date: 08/19/11 15:57:00 ondansetron 2011-0 No William 8 mg, Mem oria 2-29 [place] Route: l 21:57: Pooja IVP, Drug Jake n 00 form: INJ, ONCE, Priority: STAT, Start date: 08/19/11 15:57:00, Stop date: 08/19/11 15:57:00 morphine 2011-0 No William 4 mg, Memori a Sulfate 2-29 [place] Route: l 21:57: Pooja IVP, ONCE, Nidia nn 00 Priority: STAT, Start date: 08/19/11 15:57:00, Stop date: 08/19/11 15:57:00 Reglan 2011-0 No William 10 mg, Memoria 2-29 [place] Route: IV, l 21:57: Pooja ONCE, Vin 00 Start date: 08/19/11 15:57:00, Stop date: 08/19/11 15:57:00 ondansetron 2011-0 No William 8 mg, Mem oria 2-29 [place] Route: l 21:57: Pooja IVP, Drug Jake n 00 form: INJ, ONCE, Priority: STAT, Start date: 08/19/11 15:57:00, Stop date: 08/19/11 15:57:00 morphine 2011-0 No William 4 mg, Memori a Sulfate 2-29 [place] Route: l 21:57: Pooja IVP, ONCE, Nidia nn 00 Priority: STAT, Start date: 08/19/11 15:57:00, Stop date: 08/19/11 15:57:00 Reglan 2011-0 No William 10 mg, Memoria 2-29 [place] Route: IV, l 21:57: Pooja ONCE, Vin 00 Start date: 08/19/11 15:57:00, Stop date: 08/19/11 15:57:00 ondansetron 2011-0 No William 8 mg, Mem oria 2-29 [place] Route: l 21:57: Pooja IVP, Drug Jake n 00 form: INJ, ONCE, Priority: STAT, Start date: 08/19/11 15:57:00, Stop date: 08/19/11 15:57:00 morphine 2011-0 No William 4 mg, Memori a Sulfate 2-29 [place] Route: l 21:57: Pooja IVP, ONCE, Nidia nn 00 Priority: STAT, Start date: 08/19/11 15:57:00, Stop date: 08/19/11 15:57:00 Reglan 2011-0 No William 10 mg, Memoria 2-29 [place] [...] doses or times, Stop date: 08/19/11 16:11:00 Lactated 2011-0 No William 1,000 mL, Me moria Ringers 2-29 [place] Rate: l (Bolus) IV 21:12: Pooja 1,000 Herm naeem 1000 mL 00 ml/hr, Infuse over: 1 hr, Route: IV, Total Volume: 1,000, Bolus Dose, Priority: STAT, Start date: 08/19/11 15:12:00, Duration: 1 doses or times, Stop date: 08/19/11 16:11:00 Lactated 2012-0 No William 1,000 mL, Me moria Ringers 2-29 [place] Rate: l (Bolus) IV 21:12: Pooja 1,000 Herm naeem 1000 mL 00 ml/hr, Infuse over: 1 hr, Route: IV, Total Volume: 1,000, Bolus Dose, Priority: STAT, Start date: 08/19/11 15:12:00, Duration: 1 doses or times, Stop date: 08/19/11 16:11:00 Lactated 2012-0 No William 1,000 mL, Me moria Ringers 2-29 [place] Rate: l (Bolus) IV 21:12: Pooja 1,000 Herm naeem 1000 mL 00 ml/hr, Infuse over: 1 hr, Route: IV, Total Volume: 1,000, Bolus Dose, Priority: STAT, Start date: 08/19/11 15:12:00, Duration: 1 doses or times, Stop date: 08/19/11 16:11:00 Lactated 2012-0 No William 1,000 mL, Me moria Ringers 2-29 [place] Rate: l (Bolus) IV 21:12: Pooja 1,000 Herm naeem 1000 mL 00 ml/hr, Infuse over: 1 hr, Route: IV, Total Volume: 1,000, Bolus Dose, Priority: STAT, Start date: 08/19/11 15:12:00, Duration: 1 doses or times, Stop date: 08/19/11 16:11:00 Lactated 2012-0 No William 1,000 mL, Me moria Ringers 2-29 [place] Rate: l (Bolus) IV 21:12: Pooja 1,000 Herm naeem 1000 mL 00 ml/hr, Infuse over: 1 hr, Route: IV, Total Volume: 1,000, Bolus Dose, Priority: STAT, Start date: 08/19/11 15:12:00, Duration: 1 doses or times, Stop date: 08/19/11 16:11:00 Immunizations Ordered Immunization Filled Immunization Date Status Commen ts Source Name Name Influenza Virus 2020-02-20 Completed [facility]00 [facility] TDAP (ADACEL) VACCINE 2019-07-25 Completed [facility] 00:00:00 [facility] Meningococcal B, OMV 2019-07-25 Completed [facility] 00:00:00 [facility] Meningococcal 2019-07-25 Completed [facility] of Polysaccharide 00:00:00 [facility] tawnya (groups A, C, Y and Branc h W-135) conjugate vaccine (MCV4P) Influenza Virus 2019-02-27 Completed [facility] Vaccine Quad .5 mL IM 00:00:00 [facility] 6+ MO Branch hepatitis B vaccine 2018-04-07 Completed [facility] ial [place] 00:00:00 hepatitis B vaccine 2018-04-07 Completed [facility] [place] 00:00:00 hepatitis B vaccine 2018-04-07 Completed [facility] 00:00:00 hepatitis B vaccine 2018-04-07 Completed [facility] 00:00:00 hepatitis B vaccine 2018-04-07 Completed [facility] 00:00:00 hepatitis B vaccine 2018-04-07 Completed [facility] [place] 00:00:00 influenza virus 2018-03-29 [facility]pleted [facility] vaccine, inactivated 00:00:00 influenza virus 2018-03-29 [facility]pleted [facility] [place] vaccine, inactivated 00:00:00 influenza virus 2018-03-29 Completed [facility] [place] vaccine, inactivated 00:00:00 influenza virus 2018-03-29 [facility]pleted [facility] vaccine, inactivated 00:00:00 influenza virus 2018-03-29 [facility]pleted [facility] [place] vaccine, inactivated 00:00:00 influenza virus 2018-03-29 [facility]pleted [facility] vaccine, inactivated 00:00:00 hepatitis B vaccine 2017-11-26 Completed [facility] [place] 00:00:00 hepatitis B vaccine 2017-11-26 Completed [facility] 00:00:00 hepatitis B vaccine 2017-11-26 Completed [facility] [place] 00:00:00 hepatitis B vaccine 2017-11-26 Completed [facility] 00:00:00 hepatitis B vaccine 2017-11-26 Completed [facility] [place] 00:00:00 hepatitis B vaccine 2017-11-26 Completed [facility] [place] 00:00:00 influenza virus 2017-10-25 [facility]pleted [facility] [place] vaccine, inactivated 00:00:00 pneumococcal 2017-10-25 [facility]pleted [facility] braden 23-valent vaccine 00:00:00 influenza virus 2017-10-25 Completed [facility] [place] vaccine, inactivated 00:00:00 pneumococcal 2017-10-25 [facility]pleted [facility] braden 23-valent vaccine 00:00:00 influenza virus 2017-10-25 Completed [facility] vaccine, inactivated 00:00:00 pneumococcal 2017-10-25 [facility]pleted [facility] braden 23-valent vaccine 00:00:00 influenza virus 2017-10-25 Completed [facility] [place] vaccine, inactivated 00:00:00 pneumococcal 2017-10-25 [facility]pleted [facility] braden 23-valent vaccine 00:00:00 influenza virus 2017-10-25 [facility]pleted [facility] vaccine, inactivated 00:00:00 pneumococcal 2017-10-25 [facility]pleted [facility] braden 23-valent vaccine 00:00:00 influenza virus 2017-10-25 Completed [facility] [place] vaccine, inactivated 00:00:00 pneumococcal 2017-10-25 Completed [facility] braden 23-valent vaccine 00:00:00 Influenza Virus 2017-06-22 Completed [facility] 3+ 00:00:00 [facility] Influenza Virus 2016-04-02 Completed [facility] IM 3+ 00:00:00 [facility] Influenza Virus 2015-10-28 Completed [facility] IM 3+ 00:00:00 [facility] Vital Signs Vital Name Observation Time Observation Value Comments Source Systolic blood 2021-01-03 12:57:00 201 mm[Hg] [facility] pressure Diastolic blood 2021-01-03 12:57:00 104 mm[Hg] [facility] pressure Heart rate 2021-01-03 12:57:00 73 /min [facility] temperature 2021-01-03 12:57:00 36 Cathleen [facility] Body height 2021-01-03 12:57:00 160 cm [facility] Body weight 2021-01-03 12:57:00 72.122 kg [facility] BMI 2021-01-03 12:57:00 28.17 kg/m2 [facility] Systolic blood 2021-01-03 12:57:00 201 mm[Hg] [facility] pressure Diastolic blood 2021-01-03 12:57:00 104 mm[Hg] [facility] pressure Heart rate 2021-01-03 12:57:00 73 /min [facility] Body temperature 2021-01-03 12:57:00 36 Cathleen [facility] Body height 2021-01-03 12:57:00 160 cm [facility] Body weight 2021-01-03 12:57:00 72.122 kg [facility] BMI 2021-01-03 12:57:00 28.17 kg/m2 [facility] Systolic blood 2020-06-27 16:33:00 171 mm[Hg] [facility] Diastolic blood 2020-06-27 16:33:00 98 mm[Hg] Unive rsity [facility] Heart rate 2020-06-27 16:33:00 71 /min [facility] Respiratory rate 2020-06-27 16:29:00 19 /min [facility] 2020-06-27 16:29:00 154.9 cm [facility] Body weight 2020-06-27 16:29:00 77.293 kg [facility] BMI 2020-06-27 16:29:00 32.20 kg/m2 [facility] Oxygen saturation in 2020-06-27 16:29:00 99 /min [facility] Arterial blood by [facility] Pulse oximetry Branch Systolic (mm Hg) 2021-01-29 20:03:00 [facility] [place] Diastolic (mm Hg) 2021-01-29 20:03:00 [facility] [place] Systolic (mm Hg) 2021-01-29 19:40:00 [facility] [place] Diastolic (mm Hg) 2021-01-29 19:40:00 Mem [facility] Systolic (mm Hg) 2021-01-29 18:05:00 [facility] Diastolic (mm Hg) 2021-01-29 18:05:00 [facility] Respitory Rate 2021-01-29 16:55:00 [facility] [place] Temperature Oral (F) 2021-01-29 16:45:00 97.3 F [facility] Respitory Rate 2021-01-29 16:45:00 [facility] [place] Respitory Rate 2021-01-29 16:30:00 [facility] [place] Temperature Oral (F) 2021-01-29 13:10:00 97.6 F [facility] [place] Systolic (mm Hg) 2021-01-27 05:00:00 [facility] [place] Diastolic (mm Hg) 2021-01-27 05:00:00 [facility] Systolic (mm Hg) 2021-01-27 04:00:00 [facility] [place] Diastolic (mm Hg) 2021-01-27 04:00:00 [facility] Systolic (mm Hg) 2021-01-27 03:00:00 [facility] Diastolic (mm Hg) 2021-01-27 03:00:00 [facility] [place] Respitory Rate 2021-01-26 19:00:00 [facility] [place] Respitory Rate 2021-01-26 18:00:00 [facility] [place] Respitory Rate 2021-01-26 17:00:00 [facility] [place] Temperature Oral (F) 2021-01-22 13:00:00 97.6 F [facility] [place] Height 2021-01-21 18:25:00 149.86 cm [facility] Weight 2021-01-21 18:25:00 [facility] BMI Calculated 2021-01-21 18:25:00 [facility] [place] Height 2021-01-21 17:09:00 157.48 cm [facility] [place] Height 2021-01-21 13:09:00 157.48 cm [facility] Weight 2021-01-21 13:09:00 [facility] [place] BMI Calculated 2021-01-21 13:09:00 [facility] [place] Heart Rate 2021-01-21 12:50:00 [facility] Systolic (mm Hg) 2020-12-24 15:43:00 [facility] [place] Diastolic (mm Hg) 2020-12-24 15:43:00 [facility] Heart Rate 2020-12-24 15:43:00 [facility] Height 2020-12-24 15:43:00 154.94 cm [facility] Weight 2020-12-24 15:43:00 [facility] [place] BMI Calculated 2020-12-24 15:43:00 [facility] [place] Systolic (mm Hg) 2016-07-30 14:00:00 [facility] Diastolic (mm Hg) 2016-07-30 14:00:00 [facility] [place] Respitory Rate 2016-07-30 14:00:00 [facility] [place] Heart Rate 2016-07-30 14:00:00 [facility] Temperature Oral (F) 2016-07-30 14:00:00 97.4 F [facility] Systolic (mm Hg) 2016-07-30 10:45:00 [facility] [place] Diastolic (mm Hg) 2016-07-30 10:45:00 Mem o[facility] Vin Heart Rate 2016-07-30 10:45:00 [facility] Temperature Oral (F) 2016-07-30 10:45:00 97.2 F [facility] [place] Respitory Rate 2016-07-30 10:45:00 [facility] [place] Heart Rate 2016-07-30 06:35:00 [facility] Temperature Oral (F) 2016-07-30 06:35:00 97.0 F [facility] Respitory Rate 2016-07-30 06:35:00 [facility] [place] Systolic (mm Hg) 2016-07-30 06:35:00 [facility] [place] Diastolic (mm Hg) 2016-07-30 06:35:00 [facility] [place] Weight 2016-07-24 02:13:00 [facility] [place] BMI Calculated 2016-07-24 02:13:00 [facility] [place] Height 2016-07-24 02:13:00 160.02 cm [facility] [place] Respitory Rate 2016-06-15 15:00:00 [facility] [place] Systolic (mm Hg) 2016-06-15 15:00:00 [facility] Diastolic (mm Hg) 2016-06-15 15:00:00 [facility] [place] Respitory Rate 2016-06-15 14:00:00 [facility] [place] Systolic (mm Hg) 2016-06-15 14:00:00 [facility] [place] Diastolic (mm Hg) 2016-06-15 14:00:00 Mem o[facility] Vin Respitory Rate 2016-06-15 13:29:00 [facility] [place] Systolic (mm Hg) 2016-06-15 13:29:00 [facility] [place] Diastolic (mm Hg) 2016-06-15 13:29:00 [facility] [place] Temperature Oral (F) 2016-06-14 10:56:00 97.1 F [facility] [place] Temperature Oral (F) 2016-06-14 06:55:00 97.1 F [facility] Temperature Oral (F) 2016-06-12 10:00:00 96.8 F [facility] Weight 2016-06-11 04:25:00 [facility] [place] Height 2016-06-11 04:25:00 160.02 cm [facility] BMI Calculated 2016-06-11 04:25:00 [facility] [place] Heart Rate 2016-06-11 02:04:00 [facility] Heart Rate 2016-06-11 00:00:00 [facility] [place] Heart Rate 2016-06-10 20:30:00 [facility] Weight 2016-06-10 16:04:00 [facility] BMI Calculated 2016-06-10 16:04:00 [facility] Height 2016-06-10 16:04:00 160.02 cm [facility] Temperature Oral (F) 2014-06-26 15:12:00 98.0 F [facility] Systolic (mm Hg) 2014-06-26 15:12:00 [facility] Heart Rate 2014-06-26 15:12:00 [facility] [place] Diastolic (mm Hg) 2014-06-26 15:12:00 Mem [facility] Vin Respitory Rate 2014-06-26 15:12:00 [facility] Systolic (mm Hg) 2014-06-26 13:53:00 [facility] [place] Diastolic (mm Hg) 2014-06-26 13:53:00 [facility] [place] Respitory Rate 2014-06-26 13:53:00 [facility] [place] Temperature Oral (F) 2014-06-26 13:53:00 98.0 F [facility] [place] Temperature Oral (F) 2014-06-26 12:37:00 98.2 F [facility] [place] Respitory Rate 2014-06-26 12:37:00 [facility] [place] Systolic (mm Hg) 2014-06-26 12:37:00 [facility] [place] Diastolic (mm Hg) 2014-06-26 12:37:00 [facility] [place] Heart Rate 2014-06-26 09:21:00 [facility] Heart Rate 2014-06-26 06:08:00 [facility] [place] Height 2014-06-26 05:35:00 154.94 cm [facility] Weight 2014-06-26 05:35:00 [facility] BMI Calculated 2014-06-26 05:35:00 [facility] [place] Respitory Rate 2013-04-15 06:10:00 [facility] [place] Diastolic (mm Hg) 2013-04-15 06:10:00 Mem o[facility] Vin Heart Rate 2013-04-15 06:10:00 [facility] Systolic (mm Hg) 2013-04-15 06:10:00 [facility] Temperature Oral (F) 2013-04-15 06:10:00 98.7 F [facility] Respitory Rate 2013-04-15 05:37:00 [facility] Diastolic (mm Hg) 2013-04-15 05:37:00 [facility] Systolic (mm Hg) 2013-04-15 05:37:00 [facility] [place] Temperature Oral (F) 2013-04-15 05:37:00 98.2 F [facility] [place] Heart Rate 2013-04-15 05:37:00 [facility] [place] Height 2013-04-15 02:06:00 160.02 cm [facility] Weight 2013-04-15 02:06:00 [facility] [place] Temperature Oral (F) 2013-04-15 02:06:00 98.6 F [facility] [place] Respitory Rate 2013-04-15 02:06:00 [facility] [place] Heart Rate 2013-04-15 02:06:00 [facility] Diastolic (mm Hg) 2013-04-15 02:06:00 [facility] [place] Systolic (mm Hg) 2013-04-15 02:06:00 [facility] Weight 2012-03-14 21:33:00 [facility] Systolic (mm Hg) 2011-12-01 00:33:00 [facility] [place] Respitory Rate 2011-12-01 00:33:00 [facility] Heart Rate 2011-12-01 00:33:00 [facility] Diastolic (mm Hg) 2011-12-01 00:33:00 [facility] Temperature Oral (F) 2011-12-01 00:33:00 99.6 F [facility] Diastolic (mm Hg) 2011-11-30 21:00:00 [facility] [place] Heart Rate 2011-11-30 21:00:00 [facility] [place] Respitory Rate 2011-11-30 21:00:00 [facility] Systolic (mm Hg) 2011-11-30 21:00:00 [facility] Temperature Oral (F) 2011-11-30 21:00:00 99.8 F [facility] [place] Respitory Rate 2011-11-30 16:30:00 [facility] [place] Systolic (mm Hg) 2011-11-30 16:30:00 [facility] [place] Diastolic (mm Hg) 2011-11-30 16:30:00 [facility] Heart Rate 2011-11-30 16:30:00 [facility] [place] Temperature Oral (F) 2011-11-30 16:30:00 99.8 F [facility] Weight 2011-11-29 11:40:00 [facility] Height 2011-11-29 11:40:00 157.48 cm [facility] Weight 2011-11-28 17:16:00 [facility] [place] Weight 2011-09-18 13:30:00 [facility] [place] Height 2011-09-18 13:30:00 154.94 cm [facility] Heart Rate 2011-09-09 13:31:00 [facility] Diastolic (mm Hg) 2011-09-09 13:02:00 [facility] Respitory Rate 2011-09-09 13:02:00 [facility] Temperature Oral (F) 2011-09-09 13:02:00 97.5 F [facility] [place] Systolic (mm Hg) 2011-09-09 13:02:00 [facility] Diastolic (mm Hg) 2011-09-09 08:00:00 [facility] [place] Heart Rate 2011-09-09 08:00:00 [facility] [place] Temperature Oral (F) 2011-09-09 08:00:00 98.6 F [facility] Respitory Rate 2011-09-09 08:00:00 [facility] Systolic (mm Hg) 2011-09-09 08:00:00 [facility] [place] Respitory Rate 2011-09-09 04:55:00 [facility] Diastolic (mm Hg) 2011-09-09 04:55:00 [facility] Systolic (mm Hg) 2011-09-09 04:55:00 [facility] Heart Rate 2011-09-09 04:55:00 [facility] [place] Temperature Oral (F) 2011-09-09 00:55:00 98.7 F [facility] [place] Weight 2011-09-01 19:59:00 [facility] [place] Height 2011-09-01 19:59:00 154.94 cm [facility] [place] Height 2011-09-01 07:01:00 154.94 cm [facility] Weight 2011-09-01 07:01:00 [facility] Respitory Rate 2011-08-23 18:00:00 [facility] Heart Rate 2011-08-23 18:00:00 [facility] Systolic (mm Hg) 2011-08-23 18:00:00 [facility] [place] Diastolic (mm Hg) 2011-08-23 18:00:00 [facility] [place] Temperature Oral (F) 2011-08-23 18:00:00 97.7 F [facility] Heart Rate 2011-08-23 14:24:00 [facility] [place] Temperature Oral (F) 2011-08-23 14:24:00 98.2 F [facility] [place] Diastolic (mm Hg) 2011-08-23 14:24:00 [facility] Systolic (mm Hg) 2011-08-23 14:24:00 [facility] Respitory Rate 2011-08-23 14:24:00 [facility] Systolic (mm Hg) 2011-08-23 11:15:00 [facility] [place] Diastolic (mm Hg) 2011-08-23 11:15:00 [facility] Temperature Oral (F) 2011-08-23 11:00:00 98.3 F [facility] Heart Rate 2011-08-23 11:00:00 [facility] [place] Respitory Rate 2011-08-22 22:00:00 [facility] Height 2011-08-20 09:12:00 154.94 cm [facility] Weight 2011-08-20 09:12:00 [facility] [place] Height 2011-08-19 20:28:00 154.94 cm [facility] Weight 2011-08-19 20:28:00 [facility] Procedures Procedure Date / Time Performed Performing Clinician [facility] Emergency department visit 2013-04-15 05:00:00 M [facility] for the evaluation and management of a patient, which requires these 3 kamara components within the constraints imposed by the urgency of the patient's clinical condition and/or mental status: A comprehensive history; A comprehensi Injection or Infusion of 2013-04-15 05:00:00 [facility] [place] Other Therapeutic or Prophylactic Substance Intravenous infusion, 2013-04-15 05:00:00 [facility] hydration; each additional hour (List separately in [...] push, single or initial substance/drug Eye procedure [facility] Colonoscopy [facility] EGD [facility] (esophagogastroduodenoscop y) gastric outlet reduction section Shahid Joseph n Tubal ligation [facility] 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 Encounters Start End Encounter Admission Attending Care Care Encounter Source Date/Time Date/Time Type Type Clinicians Facility Department ID 2021-05-11 Outpatient [facility] [id number] [facility] 00:35:48 [facility] 2021-05-06 Outpatient [facility] [id number] [facility] 05:47:43 0806 [facility] Group 2021-02-17 Preadmit nullFlavo [id number] Memoria 05:42:52 r [facility] 68 l [place] 2021-02-17 Outpatient nullFlavo [facility] [id number] Memoria 05:42:52 r Medical 06 l [facility] 2021-02-17 Outpatient nullFlavo [facility] [id number] Memoria 05:42:52 r Medical 05 l [facility] 2021-05-12 2021-05-12 Outpatient [facility] [id number] [place] 00:00:00 00:00:[address] 2021-05-12 2021-05-12 Outpatient [facility] [id number] [place] 00:00:00 00:00:[address] 2021-05-05 2021-05-05 Outpatient [facility] [id number] [place] 00:00:00 00:00:[address] 2021-01-21 2021-01-29 Inpatient nullFlavo [facility] [id number] Memoria 15:50:00 20:14:00 [facility] 12 [facility] 2021-01-21 2021-01-21 Inpatient U [facility] [id number] [facility] 10:50:00 06:06:00 2021-01-03 2021-01-03 Office DOMINIQUE Diane [id number] 07:44:43 09:30:54 Visit Alexandr SZYMANSKIROSALIE [id number] MEDICAL [id number] [facility] [id number] 2021-01-03 2021-01-03 Office DOMINIQUE Diane [id number] 90[facility] 07:44:43 09:30:54 Visit Alexandr ALTMAN [id number] [facility] MEDICAL [id number] BUILDING [id number] 2020-12-24 2020-12-25 Outpatient nullFlavo [facility] [id number] Memoria 15:32:00 04:59:00 r Disease 11 l [facility] 2020-12-24 2020-12-24 Outpatient [facility] [id number] [facility] 10:32:00 10:32:00 2020-10-27 2020-10-[address] [facility] [id number] 00:00:00 00:00:00 (Out) Oz Lehman [id number] Fausto [id number] Profterrence [id number] [facility]9 [facility] 2020-10-24 2020-10-24 Orders Doctor MARSHALL [id number] 00:00:00 00:00:00 Only Unassigned, MAGDALENO [id number] [place] [facility] [id number] [id number] [facility] 2020-09-24 2020-09-24 [facility] 1.2.840.114 [id number] 00:00:00 00:00:00 Jose Luis Lehman [id number] [place] 4.2.7.2.686 Professio [id number] [facility] 220 [facility] 2020-09-09 2020-09-09 [facility] 1.2.840.114 [id number] 00:00:00 00:00:00 Outreach Earl PRIMARY [id number] Manuel CARE 4.2.7.2.686 PAVILLION [id number] 2020-07-23 2020-07-23 [facility] [id number] 13:31:20 14:37:36 Visit Deja PRIMARY [id number] A CARE 4.2.7.2.686 PAVILLION [id number] 2020-06-27 2020-06-27 Office [facility] 1.2.840.114 [id number] Univers 10:05:43 11:00:00 Visit Oz DoshiJose FClaudiaJose F LEHMAN [id number] maranda [facility] [id number] Amisha lombardo PROFESSIO [phone] Az dical [facility] 059 [facility] 2020-06-27 2020-06-27 Outpatient R [facility] [id number] Univers 09:30:00 11:00:00 SENDIL ity [facility] 2020-01-25 2020-01-31 Inpatient 1 ChivoJose husseinRei [facility] [id number] 21:31:00 18:15:00 Rei Waldron [facility] 2016-07-24 2016-07-30 Inpatient [facility] [id number] Memoria 02:04:00 16:20:00 eduin Banuelos [address] [place] [address] 2016-06-10 2016-06-15 Inpatient [facility] [id number] Memoria 16:02:00 18:23:00 eduin Banuelos [address] [place] [address] 2014-06-26 2014-06-26 EC [facility] [id number] Memoria 05:25:00 15:14:00 Emergency r Vin 08 l [facility] 2013-04-14 2013-04-15 Emergency nullFlavo [id number] Memoria 21:04:00 01:45:00 r [facility] 07 [facility] 2012-03-14 2012-03-14 Emergency nullFlavo [id number] Memoria 16:32:00 22:39:00 r [facility] 04 [facility] 2011-11-28 2011-11-30 OU nullFlavo [facility] [id number] Memoria 12:16:00 20:40:00 r Medical 03 [facility] 2011-09-18 2011-09-18 Emergency nullFlavo [facility] [id number] Memoria 08:23:00 13:34:00 r Medical 02 [facility] 2011-09-01 2011-09-09 Inpatient nullFlavo [facility] [id number] Memoria 01:40:00 15:00:00 r Medical 01 [facility] 2011-08-19 2011-08-23 Inpatient nullFlavo [facility] [id number] Memoria 14:25:00 15:28:00 r Medical 00 [facility] Results Test Description Test Time Test [...] code = MCH) 29.7 pg 27.0-31.0 [facility] DefhjhfLDWSSCCVLP0821-69-90 08:17:0032.7[facility] 2021-01-29 08:17:0019.1[facility] QwxaxplYSANZVUIYE6386-13-38 08:17:0071[facility] EtqflxkQWTGDLGVEJ0366-84-56 08:17:009.9[facility] PvitlpdUHJCYGOLGK6328-13-85 08:17:0056.1[facility] VecvgraDYPYWYXYCQ6036-80-98 08:17:0028.9[facility] Vin YMBJLLWJCJ7660-31-04 08:17:008.1[facility] IkuuoipQPOVVXYMAX2193-33-47 08:17:005.9 [facility] KamxrmoNMEGLBDELM1024-37-69 08:17:001.0[facility]ann[facility]MATOLOGY 2021-01-29 08:17:001.3[facility] SzltuddGVSYRKYOFX2764-30-75 08:17:000.7[facility] FzfxvfcYFNFEBGMBM5564-46-36 08:17:000.2[facility] DgxqtbxXELBNLVVQE8714-94-51 08:17:000.1[facility] HermannCHEM JHACZ0137-52-28 08:17:0094[facility] HermannCHEM EJLMF2717-07-20 08:17:0027[facility] HermannCHEM XIZSC0700-89-58 08:17:004.95 [facility]annCHEM MKCVV9338-46-86 08:17:64233Ncfxjqdv HermannCHEM PANEL 2021-01-29 08:17:003.9[facility] HermannCHEM UCPWQ8123-06-74 08:17:54094Xphsqyua HermannCHEM HDUAG6804-23-40 08:17:0030[facility] HermannCHEM WWGRS3680-31-66 08:17:006.9[facility] HermannCHEM SQGXO2379-66-15 08:17:008.5[facility] HermannCHEM PAGLC6556-10-90 08:17:0010[facility] HermannCHEM BDZYH5471-62-43 08:17:003.0 [facility]annCHEM ENXGH0791-74-11 08:17:002.4[facility]annHEMATOLOGY 2021-01-29 08:17:002.3[facility] OcubiioHYHKAZLMDY5017-74-70 08:17:002.65[facility] FqogqveBJMEKGECFG0625-32-37 08:17:007.9[facility] UrrdqlrAOKSYUWHYF3771-73-11 08:17:0024.0[facility] ShwvmgxVVULOUWJMC9180-35-87 08:17:0090.6[facility] ENFJCTPAYJ7142-09-18 08:17:00 Test Item Value Reference Range Interpretation Comments MCH (test code = MCH) 29.7 pg 27.0-31.0 Memorial MqjgrfwYGYNAPNVUG5026-72-40 08:17:0032.7[facility] HermannHEMATOLOGY 2021-01-29 08:17:0019.1[facility] HmolrvjFUSMKXHUTH3304-68-94 08:17:0071[facility] PolqdoxNSQZCPFELT8557-19-57 08:17:009.9[facility] LyshaqaEYQYNAHLKP8259-76-65 08:17:0056.1[facility] GwtkhsgCHJCJKUAPF9589-39-46 08:17:0028.9[facility] [place] ZHRIJTIRYM8085-81-94 08:17:008.1[facility] CnjlseeYZJCJMWUCS4010-88-91 08:17:005.9 [facility] RcickypSPUPKDIXXI1952-59-50 08:17:001.0[facility]annHEMATOLOGY 2021-01-29 08:17:001.3[facility] ZqvgrdwUKGLBXWKAO1208-50-67 08:17:000.7[facility] PksofacQSDYZRNXYG3285-92-68 08:17:000.2[facility] OlsfvdbOUPOHXSWGO7422-22-62 08:17:000.1[facility] HermannCHEM WDKCF2092-21-74 08:17:0094[facility] HermannCHEM GVIEJ4420-83-97 08:17:0027[facility] HermannCHEM MEGWI8903-06-69 08:17:004.95 [facility]annCHEM DXQBI8482-41-88 08:17:36415Bwcuncap HermannCHEM PANEL 2021-01-29 08:17:003.9[facility] HermannCHEM GOSKA2697-42-32 08:17:58718Fhgrtdbt HermannCHEM PWFJI6314-56-50 08:17:0030[facility] HermannCHEM BVTKC2327-31-58 08:17:006.9[facility] HermannCHEM TKFYE5009-96-07 08:17:008.5[facility] HermannCHEM FJAID7662-36-96 08:17:0010[facility] HermannCHEM VHCFH1215-46-09 08:17:003.0 [facility]annCHEM TJXHA5305-22-37 08:17:002.4[facility] HermannHEMATOLOGY 2021-01-29 08:17:002.3[facility] AlwawifLJQULKPQVN2287-13-12 08:17:002.65[facility] NbnyotmAAHMNBPTGR1298-77-25 08:17:007.9[facility] WxprrlnAGOHUSMLFB4177-92-56 08:17:0024.0[facility] OdljjlcAHHBQFYXDG7516-36-27 08:17:0090.6[facility] KFCBYMNWUE2821-27-92 08:17:00 Test Item Value Reference Range Interpretation Comments MCH (test code = MCH) 29.7 pg 27.0-31.0 [facility] OsuhkykTTXJPNDMGY9270-22-64 08:17:0032.7[facility] HermannHEMATOLOGY 2021-01-29 08:17:0019.1[facility] UvtbeeaPNLIUUBVDV7085-78-94 08:17:0071[facility] IrwyontKGNPJZMUCK5610-18-06 08:17:009.9[facility] QqwlkotRKTXCVREUT3378-05-50 08:17:0056.1[facility] PtfetjtTJMVHPBYTC9061-72-30 08:17:0028.9[facility] [place] OSLQCAMHBA8203-53-63 08:17:008.1[facility] FenvmrxOXAJMIEVQT1850-11-09 08:17:005.9 [facility] XnetdytPSVWNZLAHM2757-38-97 08:17:001.0[facility] HermannHEMATOLOGY 2021-01-29 08:17:001.3[facility] KjtrvdoXVTJHUDKLW3146-32-73 08:17:000.7[facility] RfhkbdkDQNYWORQUQ1059-91-49 08:17:000.2[facility] FyscvvgBXRYEEZIKC0481-85-29 08:17:000.1[facility] HermannCHEM OVWCN5115-77-98 08:17:0094[facility] HermannCHEM FCNMM4587-94-50 08:17:0027[facility] HermannCHEM LHJQQ1323-29-84 08:17:004.95 [facility]annCHEM PYGRW9985-40-55 08:17:41247Hjznkfle HermannCHEM PANEL 2021-01-29 08:17:003.9[facility] HermannCHEM WGYLO6414-62-18 08:17:60170Cqfadipv HermannCHEM BAIAO2733-97-10 08:17:0030[facility] HermannCHEM BTFSW3631-24-53 08:17:006.9[facility] HermannCHEM YBNKL2235-04-90 08:17:008.5[facility] HermannCHEM BVGCX5323-56-90 08:17:0010[facility] HermannCHEM EPDMT7501-53-22 08:17:003.0 [facility] HermannCHEM QMIEW8592-22-84 08:17:002.4[facility] HermannHEMATOLOGY 2021-01-29 08:17:002.3[facility] UyxycepNGJFBZQAQW7646-54-90 08:17:002.65Mem[facility] DmiluwwIPXXKMLMYV6320-01-58 08:17:007.9[facility]orial IpvetyvKDXWGFLDRF0754-74-46 08:17:0024.0[facility] GuudlmfNIWHZSLOZY7903-03-65 08:17:0090.6[facility] Vin HHOYJWKAGH8729-02-37 08:17:00 Test Item Value Reference Range Interpretation Comments MCH (test code = MCH) 29.7 pg 27.0-31.0 [facility] XuxyoqhMBSWGSPWHY7760-69-52 08:17:0032.7[facility] HermannHEMATOLOGY 2021-01-29 08:17:0019.1[facility] SwfrptmJDNWCVHCID6611-23-83 08:17:0071[facility] QhpyxouACGADWQAJH4671-58-17 08:17:009.9[facility] HpsmqtrJSQWNSVMAL8630-87-58 08:17:0056.1[facility] XsfvdrwBISKTLZXDI3311-13-11 08:17:0028.9[facility] NVMACDBVSH1330-32-26 08:17:008.1[facility] JanlcqoAWETFFLJRK0233-00-75 08:17:005.9 [facility] LhisdgcDFKCCNPEBE6033-02-29 08:17:001.0[facility]annHEMATOLOGY 2021-01-29 08:17:001.3[facility] ZolkllcCUEKPDXTUE5434-06-14 08:17:000.7[facility] TxmngkdZNOXZDYNEF2676-77-81 08:17:000.2[facility] LpfmihpSMTYOUXYOS5047-78-20 08:17:000.1[facility] HermannCHEM FANZP9591-21-69 08:17:0094[facility]annCHEM JMWGF0542-61-76 08:17:0027[facility]annCHEM DMLEG3885-05-57 08:17:004.95 [facility]annCHEM QYCON5829-88-14 08:17:78899Mgnytfxw HermannCHEM PANEL 2021-01-29 08:17:003.9[facility] HermannCHEM ZKREH6540-35-40 08:17:87522Gbugvuur HermannCHEM UOOTY1913-39-00 08:17:0030[facility]annCHEM JGCWI8995-11-62 08:17:006.9[facility]annCHEM GQVYR7458-94-82 08:17:008.5[facility]annCHEM BNNQU0807-78-88 08:17:0010[facility]annCHEM ZGQMJ7317-70-30 08:17:003.0 [facility]annCHEM GSSNR5030-09-79 08:17:002.4[facility]annHEMATOLOGY 2021-01-29 08:17:002.3[facility] VuuynzxZEHWKMUZWN6582-80-30 08:17:002.65[facility] CblzqatTGYBBAKOUM4963-21-90 08:17:007.9[facility] XwbettnUYFPGGPVWC5642-97-75 08:17:0024.0[facility] RtsghdcSICYXSMRBD3422-30-21 08:17:0090.6[facility] USRGQNPMTW2089-29-24 08:17:00 Test Item Value Reference Range Interpretation Comments MCH (test code = MCH) 29.7 pg 27.0-31.0 [facility] HhsyaisEESNGAZGPF6816-31-06 08:17:0032.7[facility]annHEMATOLOGY 2021-01-29 08:17:0019.1[facility] PyswqquDZWNXRSVNQ1206-69-42 08:17:0071[facility] GmqigbkNYQSXCGCMI4084-78-10 08:17:009.9[facility] NiksvboTMLTAPHBSW9696-55-54 08:17:0056.1[facility] LrffkvcTDCSOXWOWW0369-35-25 08:17:0028.9[facility] Vin SIYINIMGJN0005-57-87 08:17:008.1[facility] WtpvpawXFWOXKUJSY7629-51-53 08:17:005.9 [facility] JtvesrgYVOZKVXWUJ4740-77-30 08:17:001.0[facility]annHEMATOLOGY 2021-01-29 08:17:001.3[facility] NdribplIVOPCEUBLI5475-13-78 08:17:000.7[facility] TxskkiuBSCCGQIMYN5893-24-66 08:17:000.2[facility] SymupxqRUURGHNWSR4226-14-41 08:17:000.1[facility]annCHEM FLSBH7896-52-67 08:17:0094[facility]annCHEM GVWLN2694-24-89 08:17:0027[facility]annCHEM TSZRS8122-16-60 08:17:004.95 [facility]annCHEM MOMCH8799-47-69 08:17:62348Dnbburzd HermannCHEM PANEL 2021-01-29 08:17:003.9[facility]annCHEM XCQAR1091-32-48 08:17:22919Uinwibqq HermannCHEM DSJMD9517-90-33 08:17:0030[facility]annCHEM KRLDC9054-56-60 08:17:006.9[facility]annCHEM RMJRH5143-48-61 08:17:008.5[facility]annCHEM XSNSS1473-54-86 08:17:0010[facility]annCHEM QRBZR7794-48-36 08:17:003.0 [facility]annCHEM VZTKW3794-59-88 08:17:002.4[facility]annHEMATOLOGY 2021-01-29 08:17:002.3[facility] PkvnewiQPJTFNKVHJ9312-03-22 08:17:002.65[facility] OruzmkaSQPGVJMTNQ0969-51-53 08:17:007.9[facility] TxwsgmrLBSOGKQCFC4412-97-71 08:17:0024.0[facility] DtqvkonUMICWXUQGI0728-89-71 08:17:0090.6[facility] GIYIQCZXST0982-21-73 08:17:00 Test Item Value Reference Range Interpretation Comments MCH (test code = MCH) 29.7 pg 27.0-31.0 [facility] RivdhzcDMIXKLKWPK8151-41-68 08:17:0032.7[facility]annHEMATOLOGY 2021-01-29 08:17:0019.1[facility] WksocubJKUDLCJRUH1680-05-20 08:17:0071[facility] ClrtumdYYSLAVTDTA7359-42-24 08:17:009.9[facility] JsbzrnyAFPTBMHJFG3612-07-25 08:17:0056.1[facility] DgykepgPKRMRDXTDH2742-86-25 08:17:0028.9[facility] PUUCCNPXOS8851-45-99 08:17:008.1[facility] OspvrslWYUPBICIPD7839-92-45 08:17:005.9 [facility] JiqbqiuHWEWXGWJGU7415-15-95 08:17:001.0[facility]annHEMATOLOGY 2021-01-29 08:17:001.3[facility] NgnlrgzEZOLUTPEGM6840-22-04 08:17:000.7[facility] RluchtiJXXFYKROEU3196-22-96 08:17:000.2[facility] ThljbdxXRLCNUKRTJ8687-03-80 08:17:000.1[facility]annCHEM DKDDP9214-29-47 09:30:0061[facility]annCHEM CDWVV9568-64-59 09:30:0013[facility]annCHEM MNEHM1433-60-41 09:30:003.71 [facility]annCHEM MZTLU0892-93-51 09:30:58229Wedfigrq HermannCHEM PANEL 2021-01-28 09:30:004.3[facility]annCHEM YCEZI2231-72-76 09:30:56452Ducqbpbp HermannCHEM ZLNGY4503-12-01 09:30:0027[facility]annCHEM OCNGQ6719-04-32 09:30:007.9[facility]annCHEM RROUD7247-74-83 09:30:0010.3[facility]annCHEM FOXCE5211-80-89 09:30:0015[facility]annCHEM YZZFP1408-06-11 09:30:002.3 [facility]annCHEM UWEBO9222-55-11 09:30:003.1[facility]annHEMATOLOGY 2021-01-28 09:30:0061.5[facility] NhrvsguCGXBQFMWMO2307-40-69 09:30:0024.6[facility] GferjyyTJZQSCUIXW5859-90-15 09:30:007.4[facility] TfemlbmVUYQJLCUNI3712-03-30 09:30:005.5[facility] JyrblrpCXOTUZBKTF0424-01-10 09:30:001.0[facility] VXZQJHKVIK8470-79-55 09:30:001.6[facility] LebcmgdAFANYBZBRG9211-88-58 09:30:000.6 [facility] KxmesvxEQVDENASEO1490-21-92 09:30:000.2[facility]annHEMATOLOGY 2021-01-28 09:30:000.1[facility] IbvqjxjFUPORVFHTS9008-05-39 09:30:002.5[facility] QrfmvtcEBTRMJQPDW5665-42-60 09:30:002.68[facility] QlwjkrdDEDNLMHQRC2303-34-94 09:30:008.2[facility] EwzvhjxDOAXPNFUEV5096-86-63 09:30:0024.3[facility] VVLQHJPKCP6607-16-59 09:30:0090.9[facility] SbqbcuaKZMRJUHAEB1238-12-38 09:30:00 Test Item Value Reference Range Interpretation Comments MCH (test code = MCH) 30.5 pg 27.0-31.0 [facility] QqueppdCAJTSWOFUS0788-68-46 09:30:0033.6[facility]annHEMATOLOGY 2021-01-28 09:30:0019.4[facility] ZmkhbuiUOPLKEHVHJ5563-27-13 09:30:0070[facility] PznmncdFSWTLCZAYP0018-16-55 09:30:0010.7[facility]annCHEM QSBRW4930-94-26 09:30:0061[facility]annCHEM ZMUBA2116-72-96 09:30:0013[facility]annCHEM REIME1101-21-44 09:30:003.71[facility]annCHEM HEYNG0719-25-01 09:30:35667 [facility]annCHE[facility] BQQPA8400-35-48 09:30:004.3[facility]annCHEM PANEL 2021-01-28 09:30:63872Zbmviagy HermannCHEM SWWKB4703-69-00 09:30:0027[facility]annCHEM BPKJU0765-21-20 09:30:007.9[facility]annCHEM AVYLB7185-57-35 09:30:0010.3[facility]annCHEM QLQJV5419-35-60 09:30:0015[facility]annCHEM MIWDL3341-28-85 09:30:002.3[facility]annCHEM HVFIW8568-96-51 09:30:003.1 [facility] WcmjvzkIUVWQIGTHU9659-80-61 09:30:0061.5[facility]annHEMATOLOGY 2021-01-28 09:30:0024.6[facility] ZzncczcLYANMYVWJW6566-81-44 09:30:007.4[facility] EpbfeaiFQTISHOMSF2918-56-83 09:30:005.5[facility] IfqeiczPHIWOVQXNV8186-75-37 09:30:001.0[facility] YmrmxanWBNDUYLQWV1478-77-14 09:30:001.6[facility] LPURBADAKH6704-88-48 09:30:000.6[facility] LvuvxljSXRNXMGWHJ6897-04-46 09:30:000.2 [facility] DlkyxxzJEYXAKQYUU9850-88-60 09:30:000.1[facility]annHEMATOLOGY 2021-01-28 09:30:002.5[facility] KpsznpwNCKYMBEMXX7087-01-70 09:30:002.68[facility] PfgudvtQJMRAKNIEG8811-38-36 09:30:008.2[facility] IocdtfmFIZTLJFAZW5376-91-16 09:30:0024.3[facility] BuieelqVBBQRGSSUX8640-95-81 09:30:0090.9[facility] HTUSPVWUSY9881-46-72 09:30:00 Test Item Value Reference Range Interpretation Comments MCH (test code = MCH) 30.5 pg 27.0-31.0 [facility] VqxyztfVWTRAMBIMY0503-41-11 09:30:0033.6[facility]annHEMATOLOGY 2021-01-28 09:30:0019.4[facility] FeajjdfAQLZVQYNEY1323-69-23 09:30:0070[facility] NphrtycLSEJNALFNX4598-04-65 09:30:0010.7[facility]annCHEM OIBVY1484-79-85 09:30:0061[facility]annCHEM LHLHE4053-29-30 09:30:0013[facility]annCHEM EVWYK4540-65-26 09:30:003.71[facility]annCHEM GAIPR1236-58-44 09:30:82570 [facility]annCHEM AHCYE8676-59-30 09:30:004.3[facility]annCHEM PANEL 2021-01-28 09:30:00359Taehutbt HermannCHEM YQQIG2921-81-36 09:30:0027[facility]annCHEM PJXKH4484-33-52 09:30:007.9[facility]annCHEM OHLGS9694-73-11 09:30:0010.3[facility]annCHEM ABEVD1816-44-50 09:30:0015[facility]annCHEM MBAKX0491-75-52 09:30:002.3[facility]annCHEM PBJRW7809-34-61 09:30:003.1 [facility] PbtyeqmEXVQFGZNJK5501-32-53 09:30:0061.5[facility]annHEMATOLOGY 2021-01-28 09:30:0024.6[facility] HsuvkfgIYEAWUKUVV0348-81-67 09:30:007.4[facility] QfgrkxaKJEGCRWCYB4117-55-88 09:30:005.5[facility] NdhvghhGABEZQWPKD3095-59-41 09:30:001.0[facility] GzwjrmsVUJTVBWONE4559-87-74 09:30:001.6[facility] VPGYHAOLGA7090-23-53 09:30:000.6[facility] SzkcjcmWXRDGRALJP2132-60-75 09:30:000.2 [facility] GwihvvzUQJISCOELF7735-94-80 09:30:000.1[facility]annHEMATOLOGY 2021-01-28 09:30:002.5[facility] IatnidnVVPYPLXIFH0651-37-20 09:30:002.68[facility] BbgfatjLLNBKUNJFD8565-91-79 09:30:008.2[facility] BvnjpnqJNMXKNXLJR8691-15-94 09:30:0024.3[facility] NlcisshZNABIDWRCV6439-68-50 09:30:0090.9[facility] SHHUHRELUV4520-52-47 09:30:00 Test Item Value Reference Range Interpretation Comments MCH (test code = MCH) 30.5 pg 27.0-31.0 [facility] GflofzcQUORKOJKYT1965-11-63 09:30:0033.6[facility]annHEMATOLOGY 2021-01-28 09:30:0019.4[facility] ArhfkblETNAUEHQYE8950-86-53 09:30:0070[facility] BahbnboKBEJPHVPKI8223-23-49 09:30:0010.7[facility]annCHEM QZIAX6770-02-34 09:30:0061[facility]annCHEM HDQBF6822-35-42 09:30:0013[facility]annCHEM MEAPG5481-49-67 09:30:003.71[facility]annCHEM WRGSA9064-14-64 09:30:99731 [facility]annCHEM VRZSV9902-70-47 09:30:004.3[facility]annCHEM PANEL 2021-01-28 09:30:13874Mnwalzfl HermannCHEM JABMR5045-22-35 09:30:0027[facility]annCHEM QZTYQ1049-94-26 09:30:007.9[facility]annCHEM EUZLT4609-58-64 09:30:0010.3[facility]annCHEM TWBYN9945-25-56 09:30:0015[facility]annCHEM BHPED3687-27-91 09:30:002.3[facility]annCHEM ZRPIS1997-36-57 09:30:003.1 [facility] XbctaboUMFVUFPJAF5894-35-36 09:30:0061.5[facility]annHEMATOLOGY 2021-01-28 09:30:0024.6[facility] DvnspbxKMLECQRVAJ5005-24-92 09:30:007.4[facility] JnlpajvGYEQYSNSRP1468-35-73 09:30:005.5[facility] KujslkqJBCOVRBQVF0481-68-15 09:30:001.0[facility] BctofkgCYPEEJYEIQ7083-11-52 09:30:001.6[facility] DDRGRIIQLO6126-29-18 09:30:000.6[facility] BxdjcdhQRVKLVFVDN4965-07-54 09:30:000.2 [facility] WqidtgiUGGUZDJLTQ8726-98-94 09:30:000.1[facility]annHEMATOLOGY 2021-01-28 09:30:002.5[facility] QfkrutyEJFWNNBQPK6744-05-16 09:30:002.68[facility] BlnyazzMRJDDLAZTN9927-38-90 09:30:008.2[facility] WraqkbnEZATXNPFBQ0858-18-88 09:30:0024.3[facility] TramnqgOSLPUEQAQQ6663-08-60 09:30:0090.9[facility] VZGKBBWVLZ8999-40-96 09:30:00 Test Item Value Reference Range Interpretation Comments MCH (test code = MCH) 30.5 pg 27.0-31.0 [facility] LzkiezxRKRHRKQBAJ5239-83-60 09:30:0033.6[facility]annHEMATOLOGY 2021-01-28 09:30:0019.4[facility] UaqjujgKUMOQIAYEO1523-43-60 09:30:0070[facility] PjqebaaHGVCEJFMFO2557-39-19 09:30:0010.7[facility] HermannCHEM ZMCHI8339-91-99 09:30:0061[facility]annCHEM EVJSX2583-86-42 09:30:0013[facility]annCHEM PKMIJ3472-04-14 09:30:003.71[facility]annCHEM UQMJR8945-13-03 09:30:65790 [facility]annCHE[facility] YVJJJ2643-93-63 09:30:004.3[facility]annCHEM PANEL 2021-01-28 09:30:46140Sqkpwxjb HermannCHEM FWQQD5173-26-62 09:30:0027[facility]annCHEM FBZXR2660-85-67 09:30:007.9[facility]annCHEM FUHCB3569-05-38 09:30:0010.3[facility]annCHEM ULXGQ0326-54-25 09:30:0015[facility]annCHEM QCVFZ1367-13-38 09:30:002.3[facility]annCHEM TWJXJ5872-63-23 09:30:003.1 [facility] UferijcCIHPTDRXGV1286-04-75 09:30:0061.5[facility]annHEMATOLOGY 2021-01-28 09:30:0024.6[facility] XuaqumxNOGJQQCDVG1644-66-41 09:30:007.4[facility] VdltjalMCOVWCRYSF3269-22-89 09:30:005.5[facility] AtilimsOINYABSBIJ5091-99-23 09:30:001.0[facility] XptmdsxZKDFUBXDBN1589-82-89 09:30:001.6[facility] OMLQRLGMTS7886-42-37 09:30:000.6[facility] JjmyahiPLTODUHHTH5344-21-95 09:30:000.2 [facility] IyudmgmZTRULDAUZU7144-49-63 09:30:000.1[facility]annHEMATOLOGY 2021-01-28 09:30:002.5[facility] NsgzqjbJYXPDXCKSV7969-40-27 09:30:002.68[facility] ZfhsnqzCWJQARUVQM8945-09-89 09:30:008.2[facility] UjgpfyrIVORGAESQR3761-81-02 09:30:0024.3[facility] PnvrgwhWEIRQDAXGJ7789-99-86 09:30:0090.9[facility] ANLNPLXHVT6624-15-40 09:30:00 Test Item Value Reference Range Interpretation Comments MCH (test code = MCH) 30.5 pg 27.0-31.0 [facility] LmqkrufHRKCIHFITH3741-85-71 09:30:0033.6[facility]annHEMATOLOGY 2021-01-28 09:30:0019.4[facility] AitcxecPUHOMGCYWX5627-13-07 09:30:0070[facility] WoqgwgxSYTSNBYKSG8289-27-61 09:30:0010.7[facility]annCHEM LHGOP0796-48-76 09:30:0061[facility]annCHEM PJCNM6183-20-30 09:30:0013[facility]annCHEM GDBHR4692-80-61 09:30:003.71[facility]annCHEM VIGSU1367-06-37 09:30:55736 [facility]annCHEM NGGAY5983-23-39 09:30:004.3[facility]annCHEM PANEL 2021-01-28 09:30:10773Fzignxzg HermannCHEM SLHLY8545-16-71 09:30:0027[facility]annCHEM PAZQM6119-32-77 09:30:007.9[facility]annCHEM HBKLC1067-38-39 09:30:0010.3[facility]annCHEM WQELK0647-25-49 09:30:0015[facility]annCHEM WHCQJ5573-46-23 09:30:002.3[facility]annCHEM MASXU6126-08-60 09:30:003.1 [facility] WbkaefhXRUTOXNLRP4667-47-44 09:30:0061.5[facility]annHEMATOLOGY 2021-01-28 09:30:0024.6[facility] CvkbcnxAGRHNPVNMF2017-74-73 09:30:007.4[facility] RshvsbcAKVDNPTHBY5271-53-52 09:30:005.5[facility] OghnufzTKXUAIDIHM1109-41-77 09:30:001.0[facility] LejezasYVFJUBMKGI1696-36-61 09:30:001.6[facility] SNKFBWPRAB5844-14-44 09:30:000.6[facility] VypdxfcGCOWGERWTG3549-23-33 09:30:000.2 [facility] NcgbshkMLZCXMABTC1434-48-50 09:30:000.1[facility]annHEMATOLOGY 2021-01-28 09:30:002.5[facility] FvuyrtjFSGWBVILOZ0693-23-11 09:30:002.68[facility] RfbrvhiBPCYQPQKGJ4692-66-73 09:30:008.2[facility] ChsdwyhLJACPKVDFF7765-96-12 09:30:0024.3[facility] DdzmuboWKOVSPRJKJ9619-50-62 09:30:0090.9[facility] AODPYMENMM8990-69-37 09:30:00 Test Item Value Reference Range Interpretation Comments MCH (test code = MCH) 30.5 pg 27.0-31.0 [facility] XzhgxbgHJZBOJHZEG7834-99-34 09:30:0033.6[facility]annHEMATOLOGY 2021-01-28 09:30:0019.4[facility] ZyoohhoEECWSYUSIB1948-87-32 09:30:0070[facility] WyhvuvbFITKRFHKEC4291-00-77 09:30:0010.7[facility] HermannCHEM DDDTD3628-81-15 05:10:0069[facility]annCHEM BUCQG7899-28-93 05:10:0029[facility]annCHEM CERUA0122-94-97 05:10:005.14[facility]annCHEM BMFDS6147-12-39 05:10:22003 [facility]annCHEM FWUPQ4958-07-91 05:10:005.1[facility]annCHEM PANEL 2021-01-27 05:10:0098[facility]annCHEM ZPQBX0739-62-36 05:10:0029[facility]annCHEM HGMNS1997-63-42 05:10:007.6[facility]annCHEM GCXAQ4044-93-47 05:10:0012.1[facility]annCHEM YCYOG1625-60-63 05:10:0010[facility]annCHEM VFWIX6863-09-59 05:10:002.3[facility]annCHEM CDGYF7244-29-04 05:10:005.0 [facility] ClmwhziYBKBZJJVSU5871-63-82 05:10:002.7[facility]annHEMATOLOGY 2021-01-27 05:10:002.80[facility] LzubvjlJZRCRDVMGF7356-53-38 05:10:008.5[facility] CtchpmeJJILUJWCRS6998-65-58 05:10:0025.7[facility] UhegqlfYQNEQVUQAU6090-96-93 05:10:0091.7[facility] OjziognEKRABMALMK4921-07-31 05:10:00 Test Item Value Reference Range Interpretation Comments MCH (test code = MCH) 30.4 pg 27.0-31.0 [facility] SjogkikLJLAIYRACU6026-29-38 05:10:0033.1[facility]annHEMATOLOGY 2021-01-27 05:10:0019.2[facility] SnoshsqJRPFUZANUB4019-57-40 05:10:0072[facility] JkfqhfjLVRZEMWLAC4064-63-36 05:10:009.9[facility] YchtvliDYEVNLLHGC5592-80-49 05:10:0072.6[facility] SrxdxbbOEJFHEGLQU6065-04-33 05:10:0015.9[facility] TTXVEVOFWH4637-26-80 05:10:007.3[facility] SbgzirsNELXHHXYOU6929-35-79 05:10:003.4 [facility] UzelouuNMPNRXUDAQ7207-90-56 05:10:000.8[facility]annHEMATOLOGY 2021-01-27 05:10:001.9[facility] BkownkkSHPPYSIGKV0203-09-55 05:10:000.4[facility] HzkkqwdCOMYVCCQWC0857-08-97 05:10:000.2[facility] DbkwrcgBDUCOVHZAP3993-09-02 05:10:000.1[facility] HermannPARATHYROID SCCBYKN3896-24-56 05:10:001.10[facility] HermannPARATHYROID ISWDWZK7547-30-77 05:10:001.06[facility]annCHEM PANEL 2021-01-27 05:10:0069[facility]annCHEM YXTEE0697-10-27 05:10:0029[facility]annCHEM XCWXP2999-87-27 05:10:005.14[facility]annCHEM FQTCB7438-06-77 05:10:27499Hfpojfpv HermannCHEM YTYQB0571-44-81 05:10:005.1[facility]annCHEM GWUNC9630-46-87 05:10:0098[facility]annCHEM ONEEF4043-54-59 05:10:0029 [facility]annCHEM VUOEJ5402-58-45 05:10:007.6[facility]annCHEM PANEL 2021-01-27 05:10:0012.1[facility]annCHEM FFZTO0467-24-59 05:10:0010[facility]annCHEM GTDRW1287-24-81 05:10:002.3[facility]annCHEM NLTDK2271-84-51 05:10:005.0[facility] KnvipmoQVYVHXWCXS6862-77-71 05:10:002.7[facility] UVDADLCGDX8020-91-47 05:10:002.80[facility] GkdpwdjGDZUSZERGK1039-07-03 05:10:00 8.5[facility] YuokvmeCIYTGWIGAS9852-51-89 05:10:0025.7[facility]annHEMATOLOGY 2021-01-27 05:10:0091.7[facility] IpzrpayMLSNJLSODU2080-41-36 05:10:00 Test Item Value Reference Range Interpretation Comments MCH (test code = MCH) 30.4 pg 27.0-31.0 [facility] XmymrkjBPOXCABNWK8771-49-07 05:10:0033.1[facility]annHEMATOLOGY 2021-01-27 05:10:0019.2[facility] DnawgpsYJQVALAHGB9567-09-78 05:10:0072[facility] LjuykdjZKKWZHZKWJ7011-19-27 05:10:009.9[facility] YljsjffZAECMGAFPC5114-48-23 05:10:0072.6[facility] TwvfwtyWGLTXXYUKV6960-05-72 05:10:0015.9[facility] QPCIINSZQD4946-39-04 05:10:007.3[facility] WkvpackLHBJYQOCDV3636-11-48 05:10:003.4 [facility] GxzkmzdECSWFKLZCP7433-27-73 05:10:000.8[facility]annHEMATOLOGY 2021-01-27 05:10:001.9[facility] LdzzfmqRFFBIGWQFB6767-70-53 05:10:000.4[facility] NtieoifULHAEVCOOM4493-13-55 05:10:000.2[facility] NrlkcfbCBUNJLHSTC4058-86-38 05:10:000.1[facility] HermannPARATHYROID KWIYOUN4586-64-68 05:10:001.10[facility] HermannPARATHYROID IECWKRE0057-41-88 05:10:001.06[facility]annCHEM PANEL 2021-01-27 05:10:0069[facility] HermannCHEM RICNZ0673-40-74 05:10:0029[facility]annCHEM QKLXO6461-65-27 05:10:005.14[facility] HermannCHEM GOHKE5623-47-86 05:10:25479Ndtjhcdl HermannCHEM QDMQZ6394-55-96 05:10:005.1[facility]annCHEM FTFEQ5094-63-87 05:10:0098[facility]annCHEM VZUFS3407-22-15 05:10:0029 [facility]annCHEM OHDUU7206-17-81 05:10:007.6[facility]annCHEM PANEL 2021-01-27 05:10:0012.1[facility]annCHEM CFFZV2180-16-60 05:10:0010[facility]annCHEM ZMBOI9294-29-01 05:10:002.3[facility]annCHEM YUYVY0986-87-12 05:10:005.0[facility] KqtiyniLMIMWNBVFT8663-32-41 05:10:002.7[facility] DHEMBUETDO9323-20-89 05:10:002.80[facility] ZmwqynaHVZSFJJRNC8204-61-81 05:10:00 8.5[facility] EazyvyxCUPFYEVGOO0791-72-37 05:10:0025.7[facility]annHEMATOLOGY 2021-01-27 05:10:0091.7[facility] CekgpkqIFKQKTLQRZ6181-20-15 05:10:00 Test Item Value Reference Range Interpretation Comments MCH (test code = MCH) 30.4 pg 27.0-31.0 [facility] RetipufMBTVPTUFRW2628-90-96 05:10:0033.1[facility]annHEMATOLOGY 2021-01-27 05:10:0019.2[facility] DifpcobAHBTHANBBI8657-63-85 05:10:0072[facility] GdwnsdfOHBGBVULQI0858-87-38 05:10:009.9[facility] HirbnsvVRTZJHCUFS8873-22-76 05:10:0072.6[facility] AkxhxzjSLENQHAJLO5311-42-11 05:10:0015.9[facility] LMXQXAFXTU4518-80-63 05:10:007.3[facility] VeauuslDBUBLFKRTV8695-33-21 05:10:003.4 [facility] WtxbarpHBAWCUEYWH4604-72-62 05:10:000.8[facility] HermannHEMATOLOGY 2021-01-27 05:10:001.9[facility] OfbapnaCDFNCIHWBD1521-31-88 05:10:000.4[facility] FmdasnjTYJSVPHUMT0107-71-16 05:10:000.2[facility] BuwgaujTPYIGRGNOJ0184-31-16 05:10:000.1[facility] HermannPARATHYROID NFQPZPX8825-69-18 05:10:001.10[facility] HermannPARATHYROID VEHCXDJ7131-11-80 05:10:001.06[facility] HermannCHEM PANEL 2021-01-27 05:10:0069[facility] HermannCHEM QGZHZ6978-59-63 05:10:0029[facility] HermannCHEM UJUBN5141-91-84 05:10:005.14[facility] HermannCHEM CGMIA9408-36-68 05:10:50105Xcndqhfp HermannCHEM KUJRU5860-24-20 05:10:005.1[facility] HermannCHEM URLCH6488-25-66 05:10:0098[facility]annCHEM EWZUE7663-25-90 05:10:0029 [facility]annCHEM HINLT8641-31-80 05:10:007.6[facility] HermannCHEM PANEL 2021-01-27 05:10:0012.1[facility] HermannCHEM DUFXK2074-35-12 05:10:0010[facility] HermannCHEM WYOMH2249-68-85 05:10:002.3[facility] HermannCHEM ROAHV5641-56-15 05:10:005.0[facility] FneppecZMFUWCAGMT7374-71-22 05:10:002.7[facility] WQJSLPFWBB7206-17-08 05:10:002.80[facility] ShuluqjDYFJKQQBOG4052-90-72 05:10:00 8.5[facility] ZqformiBTFLTOYKYY2197-04-57 05:10:0025.7[facility]annHEMATOLOGY 2021-01-27 05:10:0091.7[facility] HugnufjFZZHXKXMLF8827-18-33 05:10:00 Test Item Value Reference Range Interpretation Comments MCH (test code = MCH) 30.4 pg 27.0-31.0 [facility] SmukrfgECXAVYXCQR4678-06-76 05:10:0033.1[facility]annHEMATOLOGY 2021-01-27 05:10:0019.2[facility] DdpxggyKVRNDFYCDB4644-71-40 05:10:0072[facility] CvhdsyjLHWMXSWEDN6323-62-78 05:10:009.9[facility] ZbyxnqmJNPCPTDHTX5794-87-16 05:10:0072.6[facility] PfdetrmAURTZDUHDE2520-59-65 05:10:0015.9[facility] EBHYCPMGVC4298-37-20 05:10:007.3[facility] GnsbpniTUDOSDLYSL4420-84-76 05:10:003.4 [facility] BuvpdfnYFQDCSJOBE4990-37-06 05:10:000.8[facility]annHEMATOLOGY 2021-01-27 05:10:001.9[facility] BxrgwreDCGLGHYFDO7572-77-52 05:10:000.4[facility] JdlnowmKWYRERCQQU9061-88-73 05:10:000.2[facility] EcnpigxKLYOVNWWYC1648-17-87 05:10:000.1[facility]annPARATHYROID MNBMJJK0759-46-08 05:10:001.10[facility]annPARATHYROID NMPBSXT0399-31-09 05:10:001.06[facility]annCHEM PANEL 2021-01-27 05:10:0069[facility]annCHEM KDHJD2229-15-38 05:10:0029[facility]annCHEM SKKYP1338-22-66 05:10:005.14[facility]annCHEM JFQAE2233-22-45 05:10:60906Kwhfudzw HermannCHEM EKQIO8566-50-85 05:10:005.1[facility]annCHEM LSHPV2884-62-55 05:10:0098[facility]annCHEM KMZLV8931-76-39 05:10:0029 [facility]annCHEM FLBUC8076-65-71 05:10:007.6[facility]annCHEM PANEL 2021-01-27 05:10:0012.1[facility]annCHEM QTUEN8938-56-85 05:10:0010[facility]annCHEM YGFVC8344-46-69 05:10:002.3[facility]annCHEM ZXLPP5206-67-64 05:10:005.0[facility] BozajipOPDJWRLZFR3137-92-27 05:10:002.7[facility] EEOEPBGCNQ0148-33-20 05:10:002.80[facility] IikuphmCRYXCQWGFL1288-63-08 05:10:00 8.5[facility] XmvaysxVWOLGWNKCU5084-38-03 05:10:0025.7[facility]annHEMATOLOGY 2021-01-27 05:10:0091.7[facility] KfhglnuDLZVQRHRUB4543-31-65 05:10:00 Test Item Value Reference Range Interpretation Comments MCH (test code = MCH) 30.4 pg 27.0-31.0 [facility] NkhsgmqKNWRFQSZHE3280-76-34 05:10:0033.1[facility]annHEMATOLOGY 2021-01-27 05:10:0019.2[facility] NinomloHIHCBPWTDM6201-39-95 05:10:0072[facility] XpvdwltDTBWJVRRQY6183-22-54 05:10:009.9[facility] RdrfstqQPMNKECYQJ2820-39-57 05:10:0072.6[facility] IcdarnqMYGAGHKZXA3980-12-02 05:10:0015.9[facility] EIAMNOSTVV3921-98-32 05:10:007.3[facility] HcgprsgBQEJOYVQQY5350-82-63 05:10:003.4 [facility] RdiairzNWZUADPNBS6441-56-11 05:10:000.8[facility]annHEMATOLOGY 2021-01-27 05:10:001.9[facility] QceykduYHFAXBWVPY5506-12-55 05:10:000.4[facility] VuevldvLLXSZPZBVZ3224-09-03 05:10:000.2[facility] ZltormzYCTIGBSLND9233-51-12 05:10:000.1[facility]annPARATHYROID AHZBPWS7291-65-53 05:10:001.10[facility]annPARATHYROID PEDUMNS0008-86-45 05:10:001.06[facility]annCHEM PANEL 2021-01-27 05:10:0069[facility]annCHEM JFXRR0358-42-37 05:10:0029[facility]annCHEM USDGL5183-99-68 05:10:005.14[facility]annCHEM NQQJK8427-02-32 05:10:70399Auficqcf HermannCHEM HUMDH4994-21-31 05:10:005.1[facility]annCHEM UROTH1180-94-68 05:10:0098[facility]annCHEM EJPCL2117-85-40 05:10:0029 [facility]annCHEM BZWQW6410-25-37 05:10:007.6[facility]annCHEM PANEL 2021-01-27 05:10:0012.1[facility]annCHEM EVUVX4136-42-25 05:10:0010[facility]annCHEM GAASH0316-05-73 05:10:002.3[facility]annCHEM TZAUQ3557-00-57 05:10:005.0[facility] BqevmmcGKDCUBFTWK9511-90-94 05:10:002.7[facility] EQJPTXDAJN0897-50-64 05:10:002.80[facility] DgbqbscEXMHAHFRTG6260-32-28 05:10:00 8.5[facility] DhwkfafJXTYFHVBMG2545-91-84 05:10:0025.7[facility]annHEMATOLOGY 2021-01-27 05:10:0091.7[facility] QzmdqiqCCVLZVWOHR7116-55-73 05:10:00 Test Item Value Reference Range Interpretation Comments MCH (test code = MCH) 30.4 pg 27.0-31.0 [facility] AlajchnXLKASQAZRM4294-45-10 05:10:0033.1[facility]annHEMATOLOGY 2021-01-27 05:10:0019.2[facility] BfpjoerAGTDJBJMNF6465-98-78 05:10:0072[facility] RjzhlcsWTZTWGPQDC5537-95-23 05:10:009.9[facility] RbuichfTKQXLDXUWZ7002-84-40 05:10:0072.6[facility] DrjypucBDDRECBLET2785-78-04 05:10:0015.9[facility] RLFBACIXSZ7959-73-17 05:10:007.3[facility] CovoqatUJPWMQMBOX0788-81-17 05:10:003.4 [facility] EskiyipPXJMISGIAF5901-13-35 05:10:000.8[facility]annHEMATOLOGY 2021-01-27 05:10:001.9[facility] ApbgznyVWIQWKLYPV9075-61-19 05:10:000.4[facility] XdmrhlqUDVMTKOJIO1788-89-36 05:10:000.2[facility] ToxjjxfSLSLFFKQKD3179-51-50 05:10:000.1[facility]annPARATHYROID WXCAYUV1286-33-00 05:10:001.10[facility]annPARATHYROID NHBJFUP8461-55-06 05:10:001.06[facility] HermannMOLECULAR NAIIFCGEDL6106-66-63 18:36:00Negative (01/26/21 1:36 PM)[facility]annMOLECULAR ZFNYDSWNVS3080-73-48 18:36:00Negative (01/26/21 1:36 PM)[facility]annMOLECULAR XYHJTXQDES2976-66-09 18:36:00Negative (01/26/21 1:36 PM)[facility]annMOLECULAR EASIHAXBQI8581-44-77 18:36:00Negative (01/26/21 1:36 PM)[facility]annMOLECULAR FCZLIQEKLJ9312-30-31 18:36:00Negative (01/26/21 1:36 PM)[facility]annMOLECULAR VUUVVLHKET9403-11-87 18:36:00Negative (01/26/21 1:36 PM)[facility] PARATHYROID KZJJXVL7890-77-93 07:33:001.12[facility]annPARATHYROID PROFILE 2021-01-26 07:33:001.07[facility]annPARATHYROID PATPJTY9230-37-78 07:33:00 1.12[facility]annPARATHYROID LCHDDDA6842-48-90 07:33:001.07[facility] PARATHYROID DCLEEHH2967-56-92 07:33:001.12[facility]annPARATHYROID PROFILE 2021-01-26 07:33:001.07[facility]annPARATHYROID MXYNITT4349-23-47 07:33:00 1.12[facility]annPARATHYROID TYIJDHP3641-41-31 07:33:001.07[facility] PARATHYROID YFTLRQE2808-32-20 07:33:001.12[facility]annPARATHYROID PROFILE 2021-01-26 07:33:001.07[facility]annPARATHYROID TZUTQYH0297-19-39 07:33:00 1.12[facility]annPARATHYROID GGMSGOE9613-46-40 07:33:001.07[facility] CHEM LROQO4630-76-31 07:30:0065[facility]annCHEM OYTOB3979-40-90 07:30:0021 [facility]annCHEM WLUEE5842-25-40 07:30:004.18[facility]annCHEM PANEL 2021-01-26 07:30:84644Vbktrnnm HermannCHEM JIOQA6792-43-40 07:30:004.5[facility]annCHEM NMELW1266-89-56 07:30:0099[facility]annCHEM GJJNU5393-51-32 07:30:0031[facility]annCHEM TZWPY8196-14-03 07:30:0010.5[facility]annCHEM NTOYA7747-59-73 07:30:007.9[facility]annCHEM DCUBO7514-08-05 07:30:0013 [facility]annCHEM HISWZ2035-41-88 07:30:002.2[facility]annCHEM PANEL 2021-01-26 07:30:004.4[facility] YdfergoYDPFIYMDEM7792-09-30 07:30:002.3[facility] BdpjctiYRBRBHSQOJ9015-78-36 07:30:002.88[facility] LyefyyjZOAPQSMVIP1452-80-99 07:30:008.6[facility] UazowzpABPEWVFQYX6277-57-87 07:30:0026.6[facility] TNPGPMPXVX6385-06-74 07:30:0092.2[facility] EuikvbdDKPMJIBTIV0770-08-94 07:30:00 Test Item Value Reference Range Interpretation Comments MCH (test code = MCH) 29.8 pg 27.0-31.0 [facility] DqaoxajPTHLAXDHTU4985-14-32 07:30:0032.4[facility]annHEMATOLOGY 2021-01-26 07:30:0019.7[facility] YcazphwRCFODXJPLW7381-89-09 07:30:0083[facility] DbeoiskGOWPRQGNBK3147-93-81 07:30:0010.2[facility] SfxkzxmZTSPNOFBCY2684-64-78 07:30:0064.0[facility] KktowrpBAKTQDVIHO1072-84-16 07:30:0024.1[facility] ISTQYISIDW3279-95-02 07:30:007.0[facility] JqgzbwxJRGIQVFDHM7848-43-47 07:30:003.7 [facility] ErkiemfZBQLRQXZTH0723-02-27 07:30:001.2[facility]annHEMATOLOGY 2021-01-26 07:30:001.5[facility] XtfqynsVMTWTIFRRP6801-94-06 07:30:000.6[facility] HzivsilICJWHDUAED4238-90-55 07:30:000.2[facility] CzoghkcCCXPWZYOZM6510-06-23 07:30:000.1[facility] HermannCHEM OOCLK4178-40-27 07:30:0065[facility]annCHEM ZUIKE9774-43-78 07:30:0021[facility]annCHEM TLFNL0144-79-55 07:30:004.18 [facility]annCHEM LLYPU4017-05-70 07:30:29403Prdyaoav HermannCHEM PANEL 2021-01-26 07:30:004.5[facility]annCHEM PPDEL7453-96-27 07:30:0099[facility]annCHEM SZXKJ7877-91-23 07:30:0031[facility]annCHEM URENH7016-23-84 07:30:0010.5[facility]annCHEM UDGQF1581-29-82 07:30:007.9[facility]annCHEM GMPIW5491-34-48 07:30:0013[facility]annCHEM MABDW8117-66-19 07:30:002.2 [facility]annCHEM DUJRB6957-36-59 07:30:004.4[facility] HermannHEMATOLOGY 2021-01-26 07:30:002.3[facility] YgfttzmFGRLMYIZQY2060-93-24 07:30:002.88[facility] KeelbxhCIWKELMXPY5859-63-03 07:30:008.6[facility] JcmtlcpWHKAYDHSVC3382-75-21 07:30:0026.6[facility] HfvolcxKQGXIPDDNE6502-30-40 07:30:0092.2[facility] AVVVCAVSLL6538-14-58 07:30:00 Test Item Value Reference Range Interpretation Comments MCH (test code = MCH) 29.8 pg 27.0-31.0 [facility] UnzzbdgNBWUMWMJKS2844-31-44 07:30:0032.4[facility] HermannHEMATOLOGY 2021-01-26 07:30:0019.7[facility] EbmnntkBLIJZDJJSL1437-19-58 07:30:0083[facility] KptcpeoCMUHAUTADE3722-38-88 07:30:0010.2[facility] CbnyqpoBYXPTESXOD7842-74-59 07:30:0064.0[facility] KkjayumGFIGJIMGKB7012-12-93 07:30:0024.1[facility] KXOWTHEQZD8901-48-04 07:30:007.0[facility] EfggocyWSAPAFERCL5359-72-63 07:30:003.7 [facility] NshdziiUOMYYPMJBB9653-57-14 07:30:001.2[facility] HermannHEMATOLOGY 2021-01-26 07:30:001.5[facility] RhwmwlgINEIECTRRD9549-63-70 07:30:000.6[facility] MkiynzxHZMJIEYBDT8837-93-06 07:30:000.2[facility] LaxenhtYYMYXJNIIM7889-97-90 07:30:000.1[facility] HermannCHEM QAINK2815-81-50 07:30:0065[facility]annCHEM XXOMC3763-66-42 07:30:0021[facility]annCHEM VBEHQ7786-58-15 07:30:004.18 [facility]annCHEM YXZCM0898-61-92 07:30:21932Ubohrwaq HermannCHEM PANEL 2021-01-26 07:30:004.5[facility]annCHEM GUWYT8965-36-53 07:30:0099[facility]annCHEM XPVXM0544-75-02 07:30:0031[facility]annCHEM NHUGD4465-19-76 07:30:0010.5[facility]annCHEM GRIWL1450-82-29 07:30:007.9[facility]annCHEM ZOCUP3708-74-20 07:30:0013[facility]annCHEM TBVUT0340-39-80 07:30:002.2 [facility]annCHEM FHSEP5948-48-49 07:30:004.4[facility]annHEMATOLOGY 2021-01-26 07:30:002.3[facility] VrwkuniUXUUENGLJI4859-02-95 07:30:002.88[facility] SaibrngDXLEZOLYLR7364-83-52 07:30:008.6[facility] PzahovdWRNRAGCXOG2902-16-22 07:30:0026.6[facility] YckaeqeHVSBDAJZXC4448-90-37 07:30:0092.2[facility] OGNFYOAAHQ9046-66-18 07:30:00 Test Item Value Reference Range Interpretation Comments MCH (test code = MCH) 29.8 pg 27.0-31.0 [facility] NhpbbhaRXVPZKABLY7168-09-02 07:30:0032.4[facility] HermannHEMATOLOGY 2021-01-26 07:30:0019.7[facility] DljyzayXLMOXOFHZT8075-73-85 07:30:0083[facility] HgpxcdbVZCTRZZNAI9339-43-34 07:30:0010.2[facility] PutzkkfRYYFLWFYUM7509-46-44 07:30:0064.0[facility] QztnncaAUJCRRYQUO4969-30-06 07:30:0024.1[facility] HLPIOSTCLQ2309-30-91 07:30:007.0[facility] IsgjyouIKDQRGZUOP9342-76-11 07:30:003.7 [facility] GvgopuwFAZKCJPERN2856-03-82 07:30:001.2[facility] HermannHEMATOLOGY 2021-01-26 07:30:001.5[facility] NxldvayPRQHURRVKS1189-30-62 07:30:000.6[facility] MmioaasDRNLLYXUJC3145-37-20 07:30:000.2[facility] FupkpwvPCJOISMNGW2888-20-24 07:30:000.1[facility] HermannCHEM OVWDN5220-56-45 07:30:0065[facility]annCHEM ZZORO0423-74-36 07:30:0021[facility]annCHEM HUQBQ7901-42-22 07:30:004.18 [facility]annCHEM ODRWF0747-18-13 07:30:46152Inxtcfmw HermannCHEM PANEL 2021-01-26 07:30:004.5[facility] HermannCHEM XXDDB1546-20-77 07:30:0099[facility]annCHEM HLFJP4330-77-98 07:30:0031[facility]annCHEM ONWPI0270-37-80 07:30:0010.5[facility]annCHEM MNUAR3070-35-18 07:30:007.9[facility]annCHEM HHCHE2219-40-57 07:30:0013[facility]annCHEM EIOOI9735-10-85 07:30:002.2 [facility]annCHEM YHWZZ8914-06-63 07:30:004.4[facility] HermannHEMATOLOGY 2021-01-26 07:30:002.3[facility] AxpdriaWMGCCJIKUU6233-20-42 07:30:002.88[facility] DpztltpJULXKDPXOI7991-38-12 07:30:008.6[facility] FjvbtohAKOYSQYTBU8791-96-84 07:30:0026.6[facility] KzjfdigKHKJGIKKQE4292-38-48 07:30:0092.2[facility] WGKXVXBOUK3364-19-84 07:30:00 Test Item Value Reference Range Interpretation Comments MCH (test code = MCH) 29.8 pg 27.0-31.0 [facility] NppzvpgWPMYYFBKFV3056-91-94 07:30:0032.4[facility] HermannHEMATOLOGY 2021-01-26 07:30:0019.7[facility] UarbyglQKSIBRDRJA0310-87-41 07:30:0083[facility] FarvcdaBNKPTYNJYD8123-86-88 07:30:0010.2[facility] JbxiyleBLAOPPWNZX2072-46-92 07:30:0064.0[facility] PzqxgxlVNUXXFFZJD9992-21-97 07:30:0024.1[facility] WGPPPCLDQM1585-06-98 07:30:007.0[facility] ZqubzwvQNMUKCVWSX6252-37-06 07:30:003.7 [facility] TgztyztKEVACTAESV1709-10-70 07:30:001.2[facility] HermannHEMATOLOGY 2021-01-26 07:30:001.5[facility] AwspuhgGBEMAYSQXZ8957-77-11 07:30:000.6[facility] DjcfbzsVJFRDLPBQG1788-07-49 07:30:000.2[facility] IksnjcnRRPFTUSSVN9570-91-46 07:30:000.1[facility] HermannCHEM PWZPG1213-67-73 07:30:0065[facility] HermannCHEM RLRIZ2705-24-60 07:30:0021[facility]annCHEM MNLUB0180-88-01 07:30:004.18 [facility]annCHEM XYHVW4157-63-24 07:30:00697Frdxncjr HermannCHEM PANEL 2021-01-26 07:30:004.5[facility] HermannCHEM ZKAKE1685-67-23 07:30:0099[facility]annCHEM KCAOQ2293-95-84 07:30:0031[facility]annCHEM WRNMQ7708-94-67 07:30:0010.5[facility]annCHEM LBCKO8158-04-02 07:30:007.9[facility] HermannCHEM KSKRT8335-14-18 07:30:0013[facility]annCHEM KPZHD3902-69-14 07:30:002.2 [facility]annCHEM BCCPZ6373-08-75 07:30:004.4[facility] HermannHEMATOLOGY 2021-01-26 07:30:002.3[facility] RwgzkuwYXCDYTDCXZ2432-21-41 07:30:002.88[facility] OzoynfpUASNCKMBOJ7803-97-35 07:30:008.6[facility] SenbodmNIBGKRAHMU4981-38-68 07:30:0026.6[facility] AcbwadrIVWUBVLOXU5058-72-09 07:30:0092.2[facility] ZYXSGIAQQY4486-71-05 07:30:00 Test Item Value Reference Range Interpretation Comments MCH (test code = MCH) 29.8 pg 27.0-31.0 [facility] ByriwpyFRFGDQWCYV0601-68-20 07:30:0032.4[facility] HermannHEMATOLOGY 2021-01-26 07:30:0019.7[facility] TwldlqoSOSZSWQHNX0164-40-17 07:30:0083[facility] PxcpdawJZAMTIOKGJ0297-18-92 07:30:0010.2[facility] QzlztyaNQDPQTVPWY3632-06-19 07:30:0064.0[facility] LhikpgkWBFACWTMTH2855-89-51 07:30:0024.1[facility] JLQNOBJAOD6072-17-91 07:30:007.0[facility] RktcsbzLPSHBLWHEA6076-95-99 07:30:003.7 [facility] MjdwrmkCBTYECIRWG9243-07-41 07:30:001.2[facility] HermannHEMATOLOGY 2021-01-26 07:30:001.5[facility] CrmzwlbYKLHGFTESK4732-68-96 07:30:000.6[facility] WcsmzebEKLYPRKFYK3783-88-68 07:30:000.2[facility] QmtnqwqYKNGOWGVNE3519-18-64 07:30:000.1[facility] HermannCHEM NRLNR5009-34-55 07:30:0065[facility] HermannCHEM VTKKL1981-85-44 07:30:0021[facility] HermannCHEM DVVIF2821-25-95 07:30:004.18 [facility]annCHEM RYSRA4256-43-05 07:30:71013Hxborway HermannCHEM PANEL 2021-01-26 07:30:004.5[facility] HermannCHEM DIBRB6410-77-86 07:30:0099[facility]annCHEM HNUZU5877-16-60 07:30:0031[facility]annCHEM GEWJJ0021-84-71 07:30:0010.5[facility]annCHEM OJJUL6305-25-90 07:30:007.9[facility]annCHEM HHNVD3171-86-95 07:30:0013[facility]annCHEM AQIII8713-64-58 07:30:002.2 [facility]annCHEM LGJUA8167-61-68 07:30:004.4[facility] HermannHEMATOLOGY 2021-01-26 07:30:002.3[facility] PmlkdcoHUDRNIKSCH8837-73-47 07:30:002.88[facility] JlwvhufZHOEAHDYJC9976-91-11 07:30:008.6[facility] TkodefiHAFDADTDZW0228-07-24 07:30:0026.6[facility] GbgehkwJFZNGHSOUO2498-35-89 07:30:0092.2[facility] WSBJLNSKSL2320-26-34 07:30:00 Test Item Value Reference Range Interpretation Comments MCH (test code = MCH) 29.8 pg 27.0-31.0 [facility] NfwvpfqTQAQOPUCVN6268-51-78 07:30:0032.4[facility] HermannHEMATOLOGY 2021-01-26 07:30:0019.7[facility] WvzvhmiGWHKOWPVCI1746-38-54 07:30:0083[facility] PjqqakwDTQBERHZIG2456-17-48 07:30:0010.2[facility] RojpqdiDTRXQQAMMD1623-20-32 07:30:0064.0[facility] TbhvpgmFWGLDHTXQZ6112-85-18 07:30:0024.1[facility] MLGDQPZQZW0343-11-22 07:30:007.0[facility] ShgjisnUJJJGHMWJK3736-54-95 07:30:003.7 [facility] YxmvhsuPBZIUFWJWM6245-73-41 07:30:001.2[facility] HermannHEMATOLOGY 2021-01-26 07:30:001.5[facility] LdlidlaGWQSJUECIL8358-27-28 07:30:000.6[facility] OnofzpdNXYBLQRECQ6809-22-65 07:30:000.2[facility] TwuzjweNJKJFUGKKN1637-65-16 07:30:000.1[facility] HermannCHEM UXSBY8193-04-06 09:32:0059[facility]annCHEM ODCAA6971-89-55 09:32:0011[facility]annCHEM PTGUN3482-36-02 09:32:002.75 [facility]annCHEM ZKCIP9177-63-05 09:32:68914Ymdgfpru HermannCHEM PANEL 2021-01-25 09:32:004.1[facility] HermannCHEM PUSVJ5898-67-24 09:32:51023Agbsdxsi HermannCHEM IJXLB6112-33-52 09:32:0029[facility]annCHEM ZKXCZ3787-69-68 09:32:008.3[facility] HermannCHEM BVQRV9527-14-37 09:32:009.1[facility]annCHEM ZVFPY5521-31-23 09:32:0021[facility]annCHEM CDZSM3013-74-61 09:32:002.2 [facility]annCHEM OUVYW2091-55-41 09:32:003.9[facility] HermannHEMATOLOGY 2021-01-25 09:32:002.3[facility] GevptkcSVIUDIWOEM4102-87-26 09:32:002.78[facility] QvxangmQLUAFHGWBL5195-03-70 09:32:008.4[facility] GxggkaaYMSRDWHHPL9447-08-60 09:32:0025.2[facility] ItzwlrzDUAQFESUEB0476-48-68 09:32:0090.5[facility] TIGTWGIJPF9455-70-84 09:32:00 Test Item Value Reference Range Interpretation Comments MCH (test code = MCH) 30.4 pg 27.0-31.0 [facility] FqsfizbLCMFZJQCXB6186-37-05 09:32:0033.5[facility] HermannHEMATOLOGY 2021-01-25 09:32:0019.0[facility] BffyivgNRRNGROYPL4685-59-11 09:32:0087[facility] DorysrnZOKFKBXHNU2190-44-24 09:32:0010.0[facility] HermannCHEM VJUYQ7796-27-76 09:32:0059[facility]annCHEM OAFDH0599-66-09 09:32:0011[facility]annCHEM IDGLN6000-25-35 09:32:002.75[facility]annCHEM YBAIC2942-98-90 09:32:85557 [facility]annCHEM QQMTE5753-81-59 09:32:004.1[facility] HermannCHEM PANEL 2021-01-25 09:32:05176Vnqyxlbp HermannCHEM SASHO6244-87-27 09:32:0029[facility] HermannCHEM UTURD0060-83-55 09:32:008.3[facility]annCHEM INNWY1329-55-09 09:32:009.1[facility]annCHEM LDSEB9109-13-92 09:32:0021[facility]annCHEM DQPZP7420-90-44 09:32:002.2[facility]annCHEM LVPFP7272-85-73 09:32:003.9 [facility] KxzslbgMQCKZJVKVP7095-96-21 09:32:002.3[facility] HermannHEMATOLOGY 2021-01-25 09:32:002.78[facility] JqfjuswEISOJJZQNY6524-05-95 09:32:008.4[facility] ZskxtpeKESFJYFBCF9124-46-99 09:32:0025.2[facility] GwpvhhlGQMDEWRSVW1916-62-86 09:32:0090.5[facility] BfphpydJVBUCPTYKW6092-95-59 09:32:00 Test Item Value Reference Range Interpretation Comments MCH (test code = MCH) 30.4 pg 27.0-31.0 [facility] GepzlmePAOOROPPEQ4625-07-34 09:32:0033.5[facility] HermannHEMATOLOGY 2021-01-25 09:32:0019.0[facility] WvzmddcNVNLCSTRRV8901-92-71 09:32:0087[facility] KduovpkMVOEEUCLCF0503-98-66 09:32:0010.0[facility] HermannCHEM OFUOG4930-96-06 09:32:0059[facility]annCHEM QPENL6442-78-69 09:32:0011[facility]annCHEM BBYET4786-20-88 09:32:002.75[facility]annCHEM RFIMQ5474-51-95 09:32:65640 [facility]annCHEM XPTUF4629-36-79 09:32:004.1[facility] HermannCHEM PANEL 2021-01-25 09:32:18026Ouuhgfgx HermannCHEM OMKXO4725-38-89 09:32:0029[facility]annCHEM MHHIH3075-77-44 09:32:008.3[facility]annCHEM KSKGL4255-51-17 09:32:009.1[facility]annCHEM HCJEV8229-50-17 09:32:0021[facility]annCHEM HSQOS7044-30-14 09:32:002.2[facility]annCHEM GVLVD4663-58-88 09:32:003.9 [facility] YjveitwJBKXNRMALF3880-76-03 09:32:002.3[facility] HermannHEMATOLOGY 2021-01-25 09:32:002.78[facility] CoimhwkRJHBSKRQIH3314-90-14 09:32:008.4[facility] UxftxzpBLUCJCUKFA8360-24-46 09:32:0025.2[facility] BwbstytSGTZBIQMRT7742-33-60 09:32:0090.5[facility] KaxxjniZLPURYQUEO3513-38-18 09:32:00 Test Item Value Reference Range Interpretation Comments MCH (test code = MCH) 30.4 pg 27.0-31.0 [facility] LhvwckmQHUQMORDXV2425-12-94 09:32:0033.5[facility] HermannHEMATOLOGY 2021-01-25 09:32:0019.0[facility] WvjirwiOSVAERLMXE7616-70-04 09:32:0087[facility] GmbmarnCRXBWZEZFI4551-61-81 09:32:0010.0[facility] HermannCHEM HNBCI9030-09-84 09:32:0059[facility]annCHEM BHLSM4754-85-68 09:32:0011[facility]annCHEM YZDQY8898-90-11 09:32:002.75[facility]annCHEM GXKCQ2966-08-99 09:32:62280 [facility]annCHEM ZUGDG9833-83-23 09:32:004.1[facility] HermannCHEM PANEL 2021-01-25 09:32:39555Gwortdom HermannCHEM APRZF6939-07-89 09:32:0029[facility]annCHEM ZXVHU3388-63-33 09:32:008.3[facility]annCHEM XVMLI8017-09-25 09:32:009.1[facility]annCHEM RUOEZ3059-01-83 09:32:0021[facility]annCHEM CTFVL2593-70-65 09:32:002.2[facility]annCHEM CDNPZ3377-92-50 09:32:003.9 [facility] WavoiqyGNVOSRKTXM0175-97-68 09:32:002.3[facility]annHEMATOLOGY 2021-01-25 09:32:002.78[facility] UjqqozvHIDAQLQRSK7907-12-80 09:32:008.4[facility] TgkmaxmSRYFBNCFSI6205-09-77 09:32:0025.2[facility] SdbifoyPZERXPBPSS8408-72-97 09:32:0090.5[facility] IdzjdkaNBCISJTXHJ9110-57-56 09:32:00 Test Item Value Reference Range Interpretation Comments MCH (test code = MCH) 30.4 pg 27.0-31.0 [facility] UfjfuacPVMHPMFAYA5867-72-12 09:32:0033.5[facility] HermannHEMATOLOGY 2021-01-25 09:32:0019.0[facility] GpgwmlyUFUSDKDFXY6170-42-89 09:32:0087[facility] IlqvhphLWQHFLLKRL6288-41-84 09:32:0010.0[facility] HermannCHEM GADIG8989-07-68 09:32:0059[facility]annCHEM VOHGQ1565-62-89 09:32:0011[facility]annCHEM WAZFU5883-11-54 09:32:002.75[facility]annCHEM YCJRR7885-42-72 09:32:01362 [facility]annCHEM KIHMG4857-61-68 09:32:004.1[facility] HermannCHEM PANEL 2021-01-25 09:32:31993Bqjgqvwy HermannCHEM PGUIP0368-66-73 09:32:0029[facility]annCHEM AXPEJ2718-35-21 09:32:008.3[facility]annCHEM ZETKA6695-94-47 09:32:009.1[facility]annCHEM SBTNN7640-20-50 09:32:0021[facility]annCHEM EJRQF2650-88-73 09:32:002.2[facility]annCHEM ALGPB3382-35-01 09:32:003.9 [facility] UbntrvrYWPGNMKNCO2935-26-28 09:32:002.3[facility] HermannHEMATOLOGY 2021-01-25 09:32:002.78[facility] GlxkjxmKQUVUENUJO4682-16-58 09:32:008.4[facility] VwitxnuWLNTNNCSPF3513-01-36 09:32:0025.2[facility] VwbfszrOWPHLIGJMS6567-50-29 09:32:0090.5[facility] PuipsmdSIXCFJRBFA1653-16-34 09:32:00 Test Item Value Reference Range Interpretation Comments MCH (test code = MCH) 30.4 pg 27.0-31.0 [facility] YaqamqxPVAGTPBHBX4204-74-75 09:32:0033.5[facility] HermannHEMATOLOGY 2021-01-25 09:32:0019.0[facility] IjuvklvQBUSVROQNG9469-75-47 09:32:0087[facility] BhmclyfIXLIULBQFN1528-21-66 09:32:0010.0[facility] HermannCHEM GJNDX8276-96-37 09:32:0059[facility] HermannCHEM RCJQP8026-34-77 09:32:0011[facility] HermannCHEM VOUAK6322-67-76 09:32:002.75[facility] HermannCHEM ZJGOB1979-02-51 09:32:58432 [facility]annCHEM QSOMI4164-45-49 09:32:004.1[facility] HermannCHEM PANEL 2021-01-25 09:32:20942Uqreiaik HermannCHEM XYUIZ8995-44-23 09:32:0029[facility] HermannCHEM ZCODZ1748-64-20 09:32:008.3[facility] HermannCHEM LZBVV5102-41-15 09:32:009.1[facility] HermannCHEM GBRXY2704-99-99 09:32:0021[facility]annCHEM CYMAQ3346-88-42 09:32:002.2[facility] HermannCHEM WQQJE2686-23-89 09:32:003.9 [facility] TwvhcycOCCWCKJCWB7256-63-14 09:32:002.3[facility] HermannHEMATOLOGY 2021-01-25 09:32:002.78[facility] YwdhvphRAQIJIDIIM7185-88-40 09:32:008.4[facility] OtsulhcOHKCSZGVXQ7429-63-09 09:32:0025.2[facility] GwkpikvTVUBWKGWJN1411-69-71 09:32:0090.5[facility] UwfryxaVQRCJBXZYH9150-49-52 09:32:00 Test Item Value Reference Range Interpretation Comments MCH (test code = MCH) 30.4 pg 27.0-31.0 [facility] ZrykgagADYOPQFHWI3075-35-28 09:32:0033.5[facility] HermannHEMATOLOGY 2021-01-25 09:32:0019.0[facility] ZaakspwECJHCAXBZC5288-73-83 09:32:0087[facility] NmlgwvqAWYKLYHIXH6366-66-62 09:32:0010.0[facility] HermannBLOOD BANK RESULTS 2021-01-24 05:33:00Negative (01/24/21 12:33 AM)[facility]annHEMATOLOGY 2021-01-24 05:33:0060.2[facility] WlzaagbPPSTEBQDDI3406-93-51 05:33:0028.6[facility] KlzbmuvGOIINCTLIK4016-55-22 05:33:005.8[facility] OuaieqiOFDZFGFIFD9070-17-48 05:33:004.2[facility] WdirbitBFPTGSIHUP0819-68-50 05:33:001.2[facility] JLPOSNPGFA2556-29-80 05:33:002.2[facility] HumdhciMKKIYLPMQJ3185-11-88 05:33:001.1 [facility] JxpbbvyIJIFKKMRJN5211-08-06 05:33:000.2[facility] HermannHEMATOLOGY 2021-01-24 05:33:000.2[facility] HermannBLOOD BANK KROTJSM3423-94-56 05:33:00 Negative (01/24/21 12:33 AM)[facility] JgmknkeRRNCBVXQHE3365-62-31 05:33:0060.2 [facility] YnqygpkZRVUPKIUDC2336-85-50 05:33:0028.6[facility] HermannHEMATOLOGY 2021-01-24 05:33:005.8[facility] EvmixilFWFSZFTAGO5420-11-39 05:33:004.2[facility] SjysnoaMBTXEWALTO4489-65-44 05:33:001.2[facility] IuzdubdASXLQXVNPN7129-83-70 05:33:002.2[facility] RwusnarADEJJDECTD6344-07-58 05:33:001.1[facility] PRFZICHAJQ4958-40-80 05:33:000.2[facility] JawuhssZVMPTQCPCK4530-59-81 05:33:000.2 [facility] HermannBLOOD BANK AHBVQJI7301-37-65 05:33:00Negative (01/24/21 12:33 AM) [facility] NjfublbWPUYBHVTLO4022-69-53 05:33:0060.2[facility] HermannHEMATOLOGY 2021-01-24 05:33:0028.6[facility] YncsbhrRUGGJGJVNB2404-47-48 05:33:005.8[facility] SskihquVSGPFRQNCC6982-68-15 05:33:004.2[facility] JpidvipKATSRXEARH8237-96-47 05:33:001.2[facility] QpivaowAVMTIEYRZP3831-63-87 05:33:002.2[facility] GAIBWRHQRZ8890-81-88 05:33:001.1[facility] SykstqpJDMHETWSUZ8807-58-77 05:33:000.2 [facility] TudlpwrJGRKSAJAHG6379-81-75 05:33:000.2[facility] HermannBLOOD BANK YIULGQS5063-23-99 05:33:00Negative (01/24/21 12:33 AM)[facility]annHEMATOLOGY 2021-01-24 05:33:0060.2[facility] RbelxihKVTCWCERSU6450-78-65 05:33:0028.6[facility] UwiwrocULDSRSFZJD4209-47-65 05:33:005.8[facility] ArpsgrhBUFRFZXOCE1415-74-86 05:33:004.2[facility] WbnixffIAQZRAXZWX3025-47-60 05:33:001.2[facility] Vin DQJHFARTAO7169-62-84 05:33:002.2[facility] CmbwmxsLDGYWKWWYG5141-26-91 05:33:001.1 [facility] PetiqluWCWGSIKNDH3488-07-35 05:33:000.2[facility] 2021-01-24 05:33:000.2[facility] IORQSKI3310-30-86 05:33:00 Negative (01/24/21 12:33 AM)[facility] RiheeotYIGFWEKAGI0071-89-69 05:33:0060.2 [facility] XsrrdguVCXYOTLVIH7663-02-80 05:33:0028.6[facility]HE[facility] 2021-01-24 05:33:005.8[facility] UmxcvlrYFFEUYUWMS1020-67-80 05:33:004.2[facility] YuchmgpBZITRYWHNM2827-88-48 05:33:001.2[facility] WhchociCVGVGHNDJG0854-59-63 05:33:002.2[facility] MciqunkFQJIRRPHNY8641-19-61 05:33:001.1[facility] RIFGKUUYNN8490-34-02 05:33:000.2[facility] OeipizcUVJGMJQXZA9480-22-87 05:33:000.2 [facility] HermannBLOOD BANK LPVKZHC8020-03-92 05:33:00Negative (01/24/21 12:33 AM) [facility] XelayrjGKYZOQPTBA5711-71-21 05:33:0060.2[facility]HE[facility] 2021-01-24 05:33:0028.6[facility] GxoxjdeFBGZRIJZZO9066-20-55 05:33:005.8[facility] QsxogwwWJZTHBGIGL5295-80-71 05:33:004.2[facility] ToqnlyaKPZAPTBZCZ2309-46-04 05:33:001.2[facility] TkdklxlRVODEWDAPZ6606-08-07 05:33:002.2[facility] Vin AWHCYDEVRR0399-03-08 05:33:001.1[facility] PkwuphkUFFYYVIHCP5265-31-76 05:33:000.2 [facility] BofzlfbWRUITROMGN1824-78-61 05:33:000.2[facility] 2021-01-23 05:53:00 Test Item Value Reference Range Interpretation Comments PT (test code = PT) 14.4 s 12.0-14.7 [facility] YmzytvcQYZIEMWCWG7925-30-02 05:53:00 Test Item Value Reference Range Interpretation Comments INR (test code = INR) 1.13 1 0.85-1.17 [facility] QexiijpSVYTUCNKGD6472-26-68 05:53:85623Flmhlfll HermannHEMATOLOGY 2021-01-23 05:53:00 Test Item Value Reference Range Interpretation Comments Thrombin Time (test code = Thrombin 15.9 s 15.0-21.2 Time) [facility]ociiqvGEDUGGPYKY1915-08-69 05:53:00 Test Item Value Reference Range Interpretation Comments PTT (test code = PTT) 47.0 s 22.9-35.8 [facility]neOsgbziwFDXQOUMEPU8845-16-58 05:53:000.91[facility] 2021-01-23 05:53:000.1[facility] HermannPARATHYROID NQUYTQU7778-71-22 05:53:001.24 [facility] HermannPARATHYROID JJSVMGU2930-41-75 05:53:001.25[facility] VCFFPMTZQQ7327-13-61 05:53:00 Test Item Value Reference Range Interpretation Comments PT (test code = PT) 14.4 s 12.0-14.7 [facility]neVhmikieEVKKEARTJU9091-01-11 05:53:00 Test Item Value Reference Range Interpretation Comments INR (test code = INR) 1.13 1 0.85-1.17 [facility]neHimbkgzCHRQRJOKVY8433-03-78 05:53:48532Ajkjhszo [facility]annHEMATOLOGY 2021-01-23 05:53:00 Test Item Value Reference Range Interpretation Comments Thrombin Time (test code = Thrombin 15.9 s 15.0-21.2 Time) [facility]neGkbsywmGJLYPOHWHT8730-38-51 05:53:00 Test Item Value Reference Range Interpretation Comments PTT (test code = PTT) 47.0 s 22.9-35.8 [facility]neDwnwxkrFUUSPTFMZD4093-63-21 05:53:000.91[facility] 2021-01-23 05:53:000.1[facility] HermannPARATHYROID VRWLORT1186-75-03 05:53:001.24 [facility] HermannPARATHYROID GKHZQLV4962-95-56 05:53:001.25[facility] JREHUTNPFJ6046-82-07 05:53:00 Test Item Value Reference Range Interpretation Comments PT (test code = PT) 14.4 s 12.0-14.7 [facility]neMuwwatbZVTULXQJGH8268-21-36 05:53:00 Test Item Value Reference Range Interpretation Comments INR (test code = INR) 1.13 1 0.85-1.17 [facility]neSyjrwifESRIIESCBG0060-59-83 05:53:40009Cwxrwyoc [facility]annHEMATOLOGY 2021-01-23 05:53:00 Test Item Value Reference Range Interpretation Comments Thrombin Time (test code = Thrombin 15.9 s 15.0-21.2 Time) [facility]neHdynsipKFOSDJXFKW1262-01-83 05:53:00 Test Item Value Reference Range Interpretation Comments PTT (test code = PTT) 47.0 s 22.9-35.8 [facility]neAwrnypnEVJISMJZFS4720-48-40 05:53:000.91[facility]annHEMAT[facility]Y 2021-01-23 05:53:000.1[facility] HermannPARATHYROID NTSFMAS4865-09-21 05:53:001.24 [facility] HermannPARATHYROID KMHNDBF4709-96-19 05:53:001.25[facility] DUEIUWMRMW3166-57-58 05:53:00 Test Item Value Reference Range Interpretation Comments PT (test code = PT) 14.4 s 12.0-14.7 [facility] Cle[facility]neIvujatyOJHWOVTEOV6326-12-18 05:53:00 Test Item Value Reference Range Interpretation Comments INR (test code = INR) 1.13 1 0.85-1.17 [facility]neIrvnayoVUFFJIFVIR6098-92-12 05:53:42831Gvveewvb [facility]annHEMATOLOGY 2021-01-23 05:53:00 Test Item Value Reference Range Interpretation Comments Thrombin Time (test code = Thrombin 15.9 s 15.0-21.2 Time) [facility]neGgwspkvEFXGLTGRNS3624-02-57 05:53:00 Test Item Value Reference Range Interpretation Comments PTT (test code = PTT) 47.0 s 22.9-35.8 [facility] Cle[facility]neKrazyonRYUINAHYQX9415-57-60 05:53:000.Azmoriak HermannHEMATOLOGY 2021-01-23 05:53:000.1[facility] HermannPARATHYROID VMGBMCZ8744-36-22 05:53:001.24 [facility] HermannPARATHYROID HXKOPCW3481-34-10 05:53:001.25[facility] Vin OKAMBKALKC6484-40-66 05:53:00 Test Item Value Reference Range Interpretation Comments PT (test code = PT) 14.4 s 12.0-14.7 [facility]neAxxlwwbZINPINQKKY3479-71-04 05:53:00 Test Item Value Reference Range Interpretation Comments INR (test code = INR) 1.13 1 0.85-1.17 [facility] NorxhmrQUVPLCHZTP0327-07-52 05:53:20794Mgoilvoc HermannHEMATOLOGY 2021-01-23 05:53:00 Test Item Value Reference Range Interpretation Comments Thrombin Time (test code = Thrombin 15.9 s 15.0-21.2 Time) [facility] QejsfyyKALPGFNUJG6884-61-01 05:53:00 Test Item Value Reference Range Interpretation Comments PTT (test code = PTT) 47.0 s 22.9-35.8 [facility] CfjmaghKNRBELKPXX4387-03-99 05:53:000.91[facility]annHEMATOLOGY 2021-01-23 05:53:000.1[facility] HermannPARATHYROID PTUOXCG9523-85-95 05:53:001.24 [facility]annPARATHYROID XCOSSRK8110-27-62 05:53:001.25[facility] ZCTJTHQSDA4080-66-64 05:53:00 Test Item Value Reference Range Interpretation Comments PT (test code = PT) 14.4 s 12.0-14.7 [facility] JnjggnjAYFGMRALXO5382-55-03 05:53:00 Test Item Value Reference Range Interpretation Comments INR (test code = INR) 1.13 1 0.85-1.17 [facility] SigyfogVLEZPGPNVK5349-01-87 05:53:55349Ptwdcout HermannHEMATOLOGY 2021-01-23 05:53:00 Test Item Value Reference Range Interpretation Comments Thrombin Time (test code = Thrombin 15.9 s 15.0-21.2 Time) [facility] XhxsxckZXSCTSMMRZ5069-63-76 05:53:00 Test Item Value Reference Range Interpretation Comments PTT (test code = PTT) 47.0 s 22.9-35.8 [facility] OvlfgyiTTFXNNVGHX3714-31-04 05:53:000.91[facility] HermannHEMATOLOGY 2021-01-23 05:53:000.1[facility] HermannPARATHYROID RRESGIS4394-60-88 05:53:001.24 [facility] HermannPARATHYROID PUFOSIM9622-41-66 05:53:001.25[facility] HermannCHEM ZJKTV7738-29-74 10:09:0049[facility] HermannCHEM LUWDC7740-56-32 10:09:002.8 [facility] HermannCHEM NYFKH4223-94-84 10:09:0041[facility] HermannCHEM PANEL 2021-01-22 10:09:000.2[facility] HermannCHEM FMAMR7911-79-07 10:09:000.6[facility] HermannCHEM RSNOU5892-75-32 10:09:000.4[facility] HermannCHEM PVNWY7989-33-26 10:09:005.6[facility] HermannCHEM CIPYG7419-59-60 10:09:0033[facility] HermannCHEM GLYCS0646-36-24 10:09:002.8[facility] HermannCHEM LOOHF9582-66-74 10:09:00 Test Item Value Reference Range Interpretation Comments A/G Ratio (test code = A/G Ratio) 1.0 1 0.7-1.6 [facility] HermannCHEM SFDJZ9520-01-03 10:09:0019[facility] HermannCHEM PANEL 2021-01-22 10:09:00<10[facility] SoqjziqTVBNPJZMTD5258-70-07 10:09:00 Test Item Value Reference Range Interpretation Comments PTT (test code = PTT) 41.4 s 22.9-35.8 [facility] WaikzdqOHBQWOCYGH7904-03-91 10:09:00 Test Item Value Reference Range Interpretation Comments PT (test code = PT) 15.4 s 12.0-14.7 [facility] KiejosfYKMBVYYLDM1088-43-55 10:09:00 Test Item Value Reference Range Interpretation Comments INR (test code = INR) 1.24 1 0.85-1.17 [facility] PofheyzZYIGMGSMZF6988-09-57 10:09:68458Lfagltls HermannHEMATOLOGY 2021-01-22 10:09:00 Test Item Value Reference Range Interpretation Comments Thrombin Time (test code = Thrombin 16.6 s 15.0-21.2 Time) [facility]RnvbctlUAPUYXJHEX3935-24-79 10:09:004.91[facility] HermannHEMATOLOGY 2021-01-22 10:09:000.1[facility] HermannSPECIAL VMSPWYUVN4632-34-51 10:09:005.6 [facility] HermannCHEM EBKKT9902-75-64 10:09:0049[facility] HermannCHEM PANEL 2021-01-22 10:09:002.8[facility] HermannCHEM ZFWOJ3897-92-51 10:09:0041[facility] HermannCHEM KCFVD4584-98-88 10:09:000.2[facility] HermannCHEM SBVST8441-52-12 10:09:000.6[facility] HermannCHEM QMRVF3974-14-72 10:09:000.4[facility] HermannCHEM PROEQ9908-17-23 10:09:005.6[facility] HermannCHEM PNZXQ5471-43-18 10:09:0033 [facility] HermannCHEM UUDTU2279-14-58 10:09:002.8[facility] HermannCHEM PANEL 2021-01-22 10:09:00 Test Item Value Reference Range Interpretation Comments A/G Ratio (test code = A/G Ratio) 1.0 1 0.7-1.6 [facility] HermannCHEM HOMRG9605-18-96 10:09:0019[facility] HermannCHEM PANEL 2021-01-22 10:09:00<10[facility] NaannraHWZQFZQMEY8430-99-10 10:09:00 Test Item Value Reference Range Interpretation Comments PTT (test code = PTT) 41.4 s 22.9-35.8 [facility]nePohhxvuGXWGZTOIND2694-54-15 10:09:00 Test Item Value Reference Range Interpretation Comments PT (test code = PT) 15.4 s 12.0-14.7 [facility]neLlonwstKRJKLXCPWU3133-34-86 10:09:00 Test Item Value Reference Range Interpretation Comments INR (test code = INR) 1.24 1 0.85-1.17 [facility]neBgaofswOMWUFAGMJI2570-89-64 10:09:55339Cfyfcnaa HermannHEMATOLOGY 2021-01-22 10:09:00 Test Item Value Reference Range Interpretation Comments Thrombin Time (test code = Thrombin 16.6 s 15.0-21.2 Time) [facility]neXvpkhteNJPPWPSHDD7185-08-62 10:09:004.91[facility] HermannHEMATOLOGY 2021-01-22 10:09:000.1[facility] HermannSPECIAL KHUAKQBEE7694-19-43 10:09:005.6 [facility] HermannCHEM MHJYL3791-05-40 10:09:0049[facility] HermannCHEM PANEL 2021-01-22 10:09:002.8[facility] HermannCHEM VHLQL9601-92-77 10:09:0041[facility] HermannCHEM GSKIF4488-01-85 10:09:000.2[facility] HermannCHEM SFTUL9460-47-47 10:09:000.6[facility] HermannCHEM GOQPG9800-94-59 10:09:000.4[facility] HermannCHEM TFLWU1008-36-58 10:09:005.6[facility] HermannCHEM KAIXG2311-45-60 10:09:0033 [facility] HermannCHEM DAISK6093-07-94 10:09:002.8[facility] HermannCHEM PANEL 2021-01-22 10:09:00 Test Item Value Reference Range Interpretation Comments A/G Ratio (test code = A/G Ratio) 1.0 1 0.7-1.6 [facility]neannCHEM CMOWM7000-66-59 10:09:0019[facility] HermannCHEM PANEL 2021-01-22 10:09:00<10[facility] LawzokbUSESJLPPQY9925-53-17 10:09:00 Test Item Value Reference Range Interpretation Comments PTT (test code = PTT) 41.4 s 22.9-35.8 [facility]neOrscnvuTOPWGRGEWR1993-98-48 10:09:00 Test Item Value Reference Range Interpretation Comments PT (test code = PT) 15.4 s 12.0-14.7 [facility]neKsirlvvEYWGUKLKCC9095-40-23 10:09:00 Test Item Value Reference Range Interpretation Comments INR (test code = INR) 1.24 1 0.85-1.17 [facility]neXjqwsthOKEKMGHJUH8144-83-82 10:09:16965Ozkzoygt HermannHEMATOLOGY 2021-01-22 10:09:00 Test Item Value Reference Range Interpretation Comments Thrombin Time (test code = Thrombin 16.6 s 15.0-21.2 Time) [facility]neVjhovwrKQTNAJPPPD4226-22-35 10:09:004.91[facility] HermannHEMATOLOGY 2021-01-22 10:09:000.1[facility] HermannSPECIAL ZDJCCSVCP7624-81-27 10:09:005.6 [facility] HermannCHEM CXDPB1158-17-19 10:09:0049[facility] HermannCHEM PANEL 2021-01-22 10:09:002.8[facility] HermannCHEM PWUKJ1877-68-71 10:09:0041[facility] HermannCHEM WDUSD4888-73-11 10:09:000.2[facility] HermannCHEM NYUNH7498-45-39 10:09:000.6[facility] HermannCHEM LYKLI1042-51-14 10:09:000.4[facility] HermannCHEM BZEJH7673-09-08 10:09:005.6[facility] HermannCHEM OSSTH8490-88-10 10:09:0033 [facility] HermannCHEM ETTJT0837-23-46 10:09:002.8[facility] HermannCHEM PANEL 2021-01-22 10:09:00 Test Item Value Reference Range Interpretation Comments A/G Ratio (test code = A/G Ratio) 1.0 1 0.7-1.6 [facility]neannCHEM SHMHB6694-19-99 10:09:0019[facility] HermannCHEM PANEL 2021-01-22 10:09:00<10[facility]ak OyitkgbAMIDQAIMTM2190-00-77 10:09:00 Test Item Value Reference Range Interpretation Comments PTT (test code = PTT) 41.4 s 22.9-35.8 [facility]neFgxlbvoNKBODPFIUA0257-88-75 10:09:00 Test Item Value Reference Range Interpretation Comments PT (test code = PT) 15.4 s 12.0-14.7 [facility]neEoeukpxSEASNDZDMT0188-58-44 10:09:00 Test Item Value Reference Range Interpretation Comments INR (test code = INR) 1.24 1 0.85-1.17 [facility]neZrswfzoVJQYAZADRU3140-86-99 10:09:75852Hmwclibo HermannHEMATOLOGY 2021-01-22 10:09:00 Test Item Value Reference Range Interpretation Comments Thrombin Time (test code = Thrombin 16.6 s 15.0-21.2 Time) [facility]neUvwvfunZIJLJXKJHE6685-64-56 10:09:004.91[facility] HermannHEMATOLOGY 2021-01-22 10:09:000.1[facility] HermannSPECIAL JABYAZJTI9883-47-97 10:09:005.6 [facility] HermannCHEM LSKYO8905-72-75 10:09:0049[facility] HermannCHEM PANEL 2021-01-22 10:09:002.8[facility] HermannCHEM SYMHB2351-96-51 10:09:0041[facility] HermannCHEM XJUIK2241-47-39 10:09:000.2[facility] HermannCHEM DBKFY6569-59-40 10:09:000.6[facility] HermannCHEM WVFZK6084-18-72 10:09:000.4[facility] HermannCHEM EBLKZ7440-63-15 10:09:005.6[facility] HermannCHEM CQBUQ2119-91-76 10:09:0033 [facility] HermannCHEM KILAN8017-20-35 10:09:002.8[facility] HermannCHEM PANEL 2021-01-22 10:09:00 Test Item Value Reference Range Interpretation Comments A/G Ratio (test code = A/G Ratio) 1.0 1 0.7-1.6 [facility] HermannCHEM ZEQTN5756-99-41 10:09:0019[facility] HermannCHEM PANEL 2021-01-22 10:09:00<10[facility] YqgpprcOQUKEQVPYN2914-13-61 10:09:00 Test Item Value Reference Range Interpretation Comments PTT (test code = PTT) 41.4 s 22.9-35.8 [facility]neGedsvdlEFCQTGPTAN4929-63-48 10:09:00 Test Item Value Reference Range Interpretation Comments PT (test code = PT) 15.4 s 12.0-14.7 [facility] CleburneUjpsbrjDQVUWKDTIT2646-93-96 10:09:00 Test Item Value Reference Range Interpretation Comments INR (test code = INR) 1.24 1 0.85-1.17 [facility] CleburneZwhcpljMAMYOITAAR2551-61-47 10:09:76366Xgolzhkv HermannHEMATOLOGY 2021-01-22 10:09:00 Test Item Value Reference Range Interpretation Comments Thrombin Time (test code = Thrombin 16.6 s 15.0-21.2 Time) [facility] DezathzIGVWVRRBOB7870-08-79 10:09:004.91[facility] HermannHEMATOLOGY 2021-01-22 10:09:000.1[facility] HermannSPECIAL IJDAVMIEW3693-58-04 10:09:005.6 [facility] HermannCHEM ACJDJ0301-31-16 10:09:0049[facility] HermannCHEM PANEL 2021-01-22 10:09:002.8[facility] HermannCHEM SVLIZ0240-27-97 10:09:0041[facility] HermannCHEM RFXSS5213-10-59 10:09:000.2[facility] HermannCHEM TTHUK8938-01-83 10:09:000.6[facility] HermannCHEM MDXFH5747-27-91 10:09:000.4[facility] HermannCHEM HXAEE5188-52-86 10:09:005.6[facility] HermannCHEM LQCOW4060-20-13 10:09:0033 [facility] HermannCHEM BYUWW2936-53-58 10:09:002.8[facility] HermannCHEM PANEL 2021-01-22 10:09:00 Test Item Value Reference Range Interpretation Comments A/G Ratio (test code = A/G Ratio) 1.0 1 0.7-1.6 [facility]neannCHEM PRMUM1818-18-33 10:09:0019Memoriak HermannCHEM PANEL 2021-01-22 10:09:00<10[facility] KbhwudgQVSOUVCSET4456-57-49 10:09:00 Test Item Value Reference Range Interpretation Comments PTT (test code = PTT) 41.4 s 22.9-35.8 [facility]nePinctkfSWQHIOQYNY6638-13-53 10:09:00 Test Item Value Reference Range Interpretation Comments PT (test code = PT) 15.4 s 12.0-14.7 [facility] Cle[facility]neRinyqwqZYKWCDEBOW6122-55-60 10:09:00 Test Item Value Reference Range Interpretation Comments INR (test code = INR) 1.24 1 0.85-1.17 [facility] CleburneQuxorrhHQWWGBCQDH3307-78-04 10:09:27593Smqickag HermannHEMATOLOGY 2021-01-22 10:09:00 Test Item Value Reference Range Interpretation Comments Thrombin Time (test code = Thrombin 16.6 s 15.0-21.2 Time) [facility]neVaaqmyvIEAJDFHICR2008-61-94 10:09:004.91[facility] HermannHEMATOLOGY 2021-01-22 10:09:000.1[facility] HermannSPECIAL ZXTPSLJNS5152-50-92 10:09:005.6 [facility] HermannCHEM TPKOE4481-29-62 09:07:004[facility] HermannHEMATOLOGY 2021-01-22 09:07:00 Test Item Value Reference Range Interpretation Comments Thrombin Time (test code = Thrombin 18.0 s 15.0-21.2 Time) [facility]neZjjkafbYLVVXVOQII9245-16-21 09:07:00 Test Item Value Reference Range Interpretation Comments PT (test code = PT) 24.6 s 12.0-14.7 [facility]neKjqoalqFOABKLSIXW4869-64-49 09:07:00 Test Item Value Reference Range Interpretation Comments INR (test code = INR) 2.31 1 0.85-1.17 [facility]neGfljylnTYJNQWKOPU8497-36-85 09:07:00 Test Item Value Reference Range Interpretation Comments PTT (test code = PTT) 57.5 s 22.9-35.8 [facility] CleburneWhfpbqnDUYUTJALRH4691-50-56 09:07:04647Clzhadnu HermannHEMATOLOGY 2021-01-22 09:07:002.28[facility]annCHE[facility] BAZQA3693-63-15 09:07:004[facility] HospitalRyfvcvbTLRANEXDWE8655-01-52 09:07:00 Test Item Value Reference Range Interpretation Comments Thrombin Time (test code = Thrombin 18.0 s 15.0-21.2 Time) [facility]neHithhudFEUYTFTMUU8644-91-76 09:07:00 Test Item Value Reference Range Interpretation Comments PT (test code = PT) 24.6 s 12.0-14.7 [facility]neEotamhjDGDGSWNODI1705-31-33 09:07:00 Test Item Value Reference Range Interpretation Comments INR (test code = INR) 2.31 1 0.85-1.17 [facility] HospitalCjkirxjCKRZDQUXXA6617-34-84 09:07:00 Test Item Value Reference Range Interpretation Comments PTT (test code = PTT) 57.5 s 22.9-35.8 [facility] Cle[facility]neDmujnxnEBWQUHHXGI0971-41-46 09:07:10276Bsgiqoky HermannHEMATOLOGY 2021-01-22 09:07:002.28[facility] HermannCHEM JJLYK8860-48-00 09:07:004[facility] GnhlstjGGCJZZQIWQ5416-46-64 09:07:00 Test Item Value Reference Range Interpretation Comments Thrombin Time (test code = Thrombin 18.0 s 15.0-21.2 Time) [facility] HospitalNzlebzzINTXYCSVUI5522-37-47 09:07:00 Test Item Value Reference Range Interpretation Comments PT (test code = PT) 24.6 s 12.0-14.7 [facility]neWttrgomJEDHIHNRSG9111-71-14 09:07:00 Test Item Value Reference Range Interpretation Comments INR (test code = INR) 2.31 1 0.85-1.17 [facility]neVnbhcpgBFSAVDTULD0027-03-66 09:07:00 Test Item Value Reference Range Interpretation Comments PTT (test code = PTT) 57.5 s 22.9-35.8 [facility] HospitalDoptvmrMQSCJCCSZJ5820-95-20 09:07:10252Qxglrmht HermannHEMATOLOGY 2021-01-22 09:07:002.28[facility] HermannCHEM LNKFQ7245-69-05 09:07:004[facility] ClvvpyzNOJNLEAVKE1577-03-56 09:07:00 Test Item Value Reference Range Interpretation Comments Thrombin Time (test code = Thrombin 18.0 s 15.0-21.2 Time) [facility] HospitalAyuaeiuQAPMMKHPXQ7812-31-83 09:07:00 Test Item Value Reference Range Interpretation Comments PT (test code = PT) 24.6 s 12.0-14.7 [facility]neOemixdfLFQJJABVNT3299-55-11 09:07:00 Test Item Value Reference Range Interpretation Comments INR (test code = INR) 2.31 1 0.85-1.17 [facility]neXvmpsxaGUFZIAJMFP9267-12-40 09:07:00 Test Item Value Reference Range Interpretation Comments PTT (test code = PTT) 57.5 s 22.9-35.8 [facility]burneJhcqdmmYHOHYMTMMN9655-55-58 09:07:47856Eduyvlkc HermannHEMATOLOGY 2021-01-22 09:07:002.28[facility] HermannCHEM CTBMU7076-54-65 09:07:004[facility] ZybzzakIIPXPQCAAS0045-48-08 09:07:00 Test Item Value Reference Range Interpretation Comments Thrombin Time (test code = Thrombin 18.0 s 15.0-21.2 Time) [facility] HospitalOqfurmhKNWSBWKZAS4516-84-59 09:07:00 Test Item Value Reference Range Interpretation Comments PT (test code = PT) 24.6 s 12.0-14.7 [facility] HospitalDnhuijmQDWBOIYJIN7151-31-74 09:07:00 Test Item Value Reference Range Interpretation Comments INR (test code = INR) 2.31 1 0.85-1.17 [facility] HospitalKjeotpsYHLKMSOTNY3288-38-41 09:07:00 Test Item Value Reference Range Interpretation Comments PTT (test code = PTT) 57.5 s 22.9-35.8 [facility] HospitalSruqzhjPXYHHGEOYO6693-12-61 09:07:03612Tdxijiay HermannHEMATOLOGY 2021-01-22 09:07:002.28[facility] HermannCHEM AKAIR5245-05-53 09:07:004[facility] HospitalZqljkzwQCGCCTEQGI7751-89-32 09:07:00 Test Item Value Reference Range Interpretation Comments Thrombin Time (test code = Thrombin 18.0 s 15.0-21.2 Time) [facility] HospitalBprqqnsWRLITENTDY9897-77-28 09:07:00 Test Item Value Reference Range Interpretation Comments PT (test code = PT) 24.6 s 12.0-14.7 [facility] HospitalJqxncpiVVBWMUWDWU8844-08-37 09:07:00 Test Item Value Reference Range Interpretation Comments INR (test code = INR) 2.31 1 0.85-1.17 [facility] HospitalPdbxomrWGHUNOZZNH2441-23-58 09:07:00 Test Item Value Reference Range Interpretation Comments PTT (test code = PTT) 57.5 s 22.9-35.8 [facility] HospitalNgtrepuEOHCNGVCLY9846-84-39 09:07:05772Rylgzdhx HermannHEMATOLOGY 2021-01-22 09:07:002.28[facility] [employer] BANK JSDLMAE1848-28-29 04:52:00 Product available (01/21/21 11:52 PM)[facility] [employer] VOZQDFL2392-03-52 04:52:00Product available (01/21/21 11:52 PM)[facility] [employer] RESULTS 2021-01-22 04:52:00Product available (01/21/21 11:52 PM)[facility]annBLOOD BANK KUMIDOJ6759-68-15 04:52:00Product available (01/21/21 11:52 PM)[facility] [place] [employer]LOOD BANK UQEGHAN7933-01-94 04:52:00Product available (01/21/21 11:52 PM)[facility] HermannBLOOD BANK YAAMWZO5514-78-75 04:52:00Product available (01/21/21 11:52 PM) [facility] HermannCARDIAC LTWQIDT8724-30-85 00:38:00<0.02[facility] Ivn CARDIAC JQMEICO7432-67-07 00:38:00<0.02[facility] HermannCARDIAC ENZYMES 2021-01-22 00:38:00<0.02[facility] HermannCARDIAC MWAWUSE1107-77-97 00:38:00 <0.02[facility] HermannCARDIAC MDXBVZK6541-11-17 00:38:00<0.02[facility] HermannCARDIAC WXKKEAB5792-12-55 00:38:00<0.02[facility] HermannCARDIAC ENZYMES 2021-01-21 17:47:772535Nqupvltj HermannCARDIAC VTCLFZE2693-47-29 17:47:000.02 [facility] QifbevxZRKHFMSHUO2219-07-01 17:47:00Negative *NA*(01/21/21 12:47 PM) [facility] HermannCARDIAC MJAHIDA9086-79-22 17:47:142855Lzrtjoui HermannCARDIAC TWLIXYA7688-31-64 17:47:000.02[facility] WxtayvtMQAQELAJLL8313-61-15 17:47:00 Negative *NA*(01/21/21 12:47 PM)[facility] HermannCARDIAC CQLVJYL1377-88-76 17:47:00 2324[facility] HermannCARDIAC OVBJWAL6550-81-21 17:47:000.02[facility] Vin XYQXJOKHWF6957-63-44 17:47:00Negative *NA*(01/21/21 12:47 PM)[facility] Vin CARDIAC WYVLCFD5810-48-92 17:47:195866Rhhsgxzn HermannCARDIAC IPETPYM7577-54-54 17:47:000.02[facility] VrforosJEZRZUVZFL0379-47-05 17:47:00Negative *NA*(01/21/21 12:47 PM)[facility] HermannCARDIAC WVHNBIQ2866-45-92 17:47:390458Idyjpwec Vin CARDIAC UTONSOM1513-53-86 17:47:000.02[facility] IjpvhlrDDITDRTSSQ6803-79-27 17:47:00Negative *NA*(01/21/21 12:47 PM)[facility] HermannCARDIAC OORABDD1333-29-95 17:47:247486Ngbnkwdw HermannCARDIAC TKHRBGF8249-62-72 17:47:000.02[facility] MsuhctkBSSYWDLWNC8407-61-40 17:47:00Negative *NA*(01/21/21 12:47 PM)[facility] HermannCHEM JUXZI9833-67-66 17:43:00 Test Item Value Reference Range Interpretation Comments B/C Ratio (test code = B/C Ratio) 5 1 6-25 [facility] HermannCHEM BGJSB5527-59-74 17:43:0066[facility] HermannCHEM PANEL 2021-01-21 17:43:003.0[facility] HermannCHEM VDYUZ0446-92-59 17:43:0040[facility] HermannCHEM MGJJN9765-18-57 17:43:000.5[facility] HermannCHEM MXOXN8299-53-17 17:43:005.7[facility] HermannCHEM TAPQV0308-54-65 17:43:0052[facility] HermannCHEM YDJAD0010-58-91 17:43:002.7[facility] HermannCHEM RHAAL9139-83-00 17:43:00 Test Item Value Reference Range Interpretation Comments A/G Ratio (test code = A/G Ratio) 1.1 1 0.7-1.6 [facility] HermannCHEM OWERP5623-60-38 17:43:001.1[facility] HermannCHEM PANEL 2021-01-21 17:43:00 Test Item Value Reference Range Interpretation Comments B/C Ratio (test code = B/C Ratio) 5 06 26- [facility] HermannCHEM UCYYZ1501-79-90 17:43:0066[facility] HermannCHEM PANEL 2021-01-21 17:43:003.0[facility] HermannCHEM YCRFT1988-66-17 17:43:0040[facility] HermannCHEM ONXIK3601-98-10 17:43:000.5[facility] HermannCHEM WJIEQ8950-43-24 17:43:005.7[facility] HermannCHEM VWBJA7496-26-99 17:43:0052[facility] HermannCHEM MXSFJ6786-29-57 17:43:002.7[facility] HermannCHEM NUACZ8430-94-85 17:43:00 Test Item Value Reference Range Interpretation Comments A/G Ratio (test code = A/G Ratio) 1.1 1 0.7-1.6 [facility] HermannCHEM XNTYZ9113-08-62 17:43:001.1[facility] HermannCHEM PANEL 2021-01-21 17:43:00 Test Item Value Reference Range Interpretation Comments B/C Ratio (test code = B/C Ratio) 5 12-13 [facility] HermannCHEM TWGJL2226-17-72 17:43:0066[facility] HermannCHEM PANEL 2021-01-21 17:43:003.0[facility] HermannCHEM HFQFW6672-85-61 17:43:0040[facility] HermannCHEM OSCHZ2169-42-27 17:43:000.5[facility] HermannCHEM EYKLD1947-54-86 17:43:005.7[facility] HermannCHEM LTYLC7770-51-10 17:43:0052[facility] HermannCHEM FZOKW5798-53-82 17:43:002.7[facility] HermannCHEM NQDEN2880-99-25 17:43:00 Test Item Value Reference Range Interpretation Comments A/G Ratio (test code = A/G Ratio) 1.1 1 0.7-1.6 [facility] HermannCHEM XWNFZ8005-04-77 17:43:001.1[facility] HermannCHEM PANEL 2021-01-21 17:43:00 Test Item Value Reference Range Interpretation Comments B/C Ratio (test code = B/C Ratio) 5 12-13 [facility] HermannCHEM WQGTT7719-85-88 17:43:0066[facility] HermannCHEM PANEL 2021-01-21 17:43:003.0[facility] HermannCHEM NVNVN9926-18-15 17:43:0040[facility] HermannCHEM IPHDT1895-59-88 17:43:000.5[facility] HermannCHEM HADWA7676-51-65 17:43:005.7[facility] HermannCHEM LXCEO7305-17-24 17:43:0052[facility] HermannCHEM EGPHJ1912-17-80 17:43:002.7[facility] HermannCHEM WOIKZ2618-73-34 17:43:00 Test Item Value Reference Range Interpretation Comments A/G Ratio (test code = A/G Ratio) 1.1 1 0.7-1.6 [facility] HermannCHEM SKNDF2526-49-18 17:43:001.1[facility] HermannCHEM PANEL 2021-01-21 17:43:00 Test Item Value Reference Range Interpretation Comments B/C Ratio (test code = B/C Ratio) 5 12-13 [facility] HermannCHEM OSHTH0228-34-53 17:43:0066[facility] HermannCHEM PANEL 2021-01-21 17:43:003.0[facility] HermannCHEM SPJAE7701-66-39 17:43:0040[facility] HermannCHEM UAUCE8146-50-98 17:43:000.5[facility] HermannCHEM WKQBX3017-14-24 17:43:005.7[facility] HermannCHEM BNOGX6764-02-87 17:43:0052[facility] HermannCHEM BRHHB7626-67-59 17:43:002.7[facility] HermannCHEM HIINZ3133-68-95 17:43:00 Test Item Value Reference Range Interpretation Comments A/G Ratio (test code = A/G Ratio) 1.1 1 0.7-1.6 [facility] HermannCHEM QLUEH1168-34-32 17:43:001.1[facility] HermannCHEM PANEL 2021-01-21 17:43:00 Test Item Value Reference Range Interpretation Comments B/C Ratio (test code = B/C Ratio) 5 1 6-25 [facility] HermannCHEM OFVTJ6192-47-49 17:43:0066[facility] HermannCHEM PANEL 2021-01-21 17:43:003.0[facility] HermannCHEM NOVWH6169-10-68 17:43:0040[facility]annCHE[facility] [id number] 17:43:000.5[facility]annCHE[facility] [id number] 17:43:005.7[facility]CHE[facility] [id number] 17:43:0052[facility]CHE[facility] [id number] 17:43:002.7[facility]annCHE[facility] [id number] 17:43:00 Test Item Value Reference Range Interpretation Comments A/G Ratio (test code = A/G Ratio) 1.1 1 0.7-1.6 [facility] [id number] 17:43:001.1[facility] [id number] 16:20:00Negative (01/21/21 11:20 AM)[facility] 16:20:001+ *ABN*(01/21/21 11:20 AM)[facility] 2021-01-21 16:20:00Negative (01/21/21 11:20 AM)[facility] HermannHEMATOLOGY 2021-01-21 16:20:001+ *ABN*(01/21/21 11:20 AM)[facility] 2021-01-21 16:20:00Negative (01/21/21 11:20 AM)[facility] HermannHEMATOLOGY 2021-01-21 16:20:001+ *ABN*(01/21/21 11:20 AM)[facility] HermannBLOOD BANK RESULTS 2021-01-21 16:20:00Negative (01/21/21 11:20 AM)[facility] HermannHEMATOLOGY 2021-01-21 16:20:001+ *ABN*(01/21/21 11:20 AM)[facility] HermannBLOOD BANK RESULTS 2021-01-21 16:20:00Negative (01/21/21 11:20 AM)[facility] 2021-01-21 16:20:001+ *ABN*(01/21/21 11:20 AM)[facility] 2021-01-21 16:20:00Negative (01/21/21 11:20 AM)[facility] 2021-01-21 16:20:001+ *ABN*(01/21/21 11:20 AM)[facility] [id number] 15:35:002.0[facility] [id number] 15:35:0038.6[facility] [id number] 15:35:10457.2 [facility] [id number] 15:35:0013.8[facility] [id number] 15:35:002.0[facility] RESULTS 2021-01-21 15:35:0038.6[facility] [id number] 15:35:00 177.2[facility] [id number] 15:35:0013.8[facility] [id number] 15:35:002.0[facility] [id number] 15:35:0038.6[facility] [id number] 15:35:21687.2[facility] [id number] 15:35:0013.8 [facility] [id number] 15:35:002.0[facility] [id number] 15:35:0038.6[facility] OUMREGM0128-27-27 15:35:92348.2[facility] [id number] 15:35:0013.8[facility] [id number] 15:35:002.0[facility] [id number] 15:35:0038.6[facility] AMHBCSJ2067-51-74 15:35:62064.2[facility] [id number] 15:35:0013.8[facility] TQAAZGG6894-70-13 15:35:002.0[facility] [id number] 15:35:0038.6[facility] [id number] 15:35:23856.2[facility] [id number] 15:35:0013.8[facility] FkxxfnsLGQYDSROLVLG4213-06-45 13:21:005.1[facility] RSCOQBLWEARGE0124-69-07 13:21:00Negative 8*NA*(01/21/21 8:21 AM)[facility] FYROCBKZFCPD8243-01-65 13:21:005.1[facility] HpieybjDSGBHGMLUVUSD6360-30-13 13:21:00Negative 8*NA*(01/21/21 8:21 AM)[facility] TrfxxjnXUXWZTJMRYDK1636-18-08 13:21:005.1[facility] PmujctfAJOWAZJMSNYTU8455-33-11 13:21:00Negative 8*NA*(01/21/21 8:21 AM)[facility] BgsltgnCGZLCSZHZODH7736-89-67 13:21:005.1[facility] BMCOHYISYIHFR3551-59-54 13:21:00Negative 8*NA*(01/21/21 8:21 AM)[facility] NBEZOMJOFMPT0506-18-86 13:21:005.1[facility] HgdcxtnEBDMBIZFCUBZZ4121-80-66 13:21:00Negative 8*NA*(01/21/21 8:21 AM)[facility] WyokzyxIZUKXVMOCAQP0944-18-73 13:21:005.1[facility] AzlvfzzKXNFYCJCNVWNP7527-05-65 13:21:00Negative 8*NA*(01/21/21 8:21 AM)[facility]SEFNXCH7360[facility]92-27 11:19:00Not Detected (01/21/21 6:19 AM)[facility] HospitalLttujrtHHZVUXBVJE5090-48-17 11:19:00Not Detected (01/21/21 6:19 AM) [facility] HospitalAbsrlnwXBHPQUMZQK2562-56-13 11:19:00Not Detected (01/21/21 6:19 AM) [facility] HospitalHzqdttxONIEPXPAWX2638-77-39 11:19:00Not Detected (01/21/21 6:19 AM) [facility] HospitalYptsesyMMIFRYJGVR4769-42-81 11:19:00Not Detected (01/21/21 6:19 AM) [facility] HospitalUrixfyyFBFRWOPVTF7210-89-11 11:19:00Not Detected (01/21/21 6:19 AM) [facility] Jmauizq1706-03-41 16:39:05 Test Item Value Reference Range Interpretation Comments Glucose POC (test 183 mg/dL 70-115 H If you con senior accountant your code = Glucose POC) patient critically ill, the Merlin-Accu Check Infrom II meter should not be used for Glucose determination. Draw a venous Glucose and send to the main Lab for analysis. Urine Vegzlwy9633-89-24 11:32:13 Test Item Value Reference Range Interpretation [...] Escherichia coli C Urine Added by GL_SJM_UA_CUL_INDPOC Rnuatzp0303-20-10 07:52:10 Test Item Value Reference Range Interpretation Comments Glucose POC (test 160 mg/dL 70-115 H If you con senior accountant your code = Glucose POC) patient critically ill, the Merlin-Accu Check Infrom II meter should not be used for Glucose determination. Draw a venous Glucose and send to the main Lab for analysis. POC Wykjadj5860-74-06 19:32:05 Test Item Value Reference Range Interpretation Comments Glucose POC (test 184 mg/dL 70-115 H If you con senior accountant your code = Glucose POC) patient critically ill, the Merlin-Accu Check Infrom II meter should not be used for Glucose determination. Draw a venous Glucose and send to the main Lab for analysis. POC Cavdrkb2862-06-88 17:16:35 Test Item Value Reference Range Interpretation Comments Glucose POC (test 281 mg/dL 70-115 H Notify RN or MDIf you code = Glucose POC) consider your patient critically ill, the Merlin-Accu Chec k Infrom II meter should not be used for Glucos e determination. Draw a venous Glucose and send to the main Lab for analysis. POC Kguykfs8350-56-43 12:00:38 Test Item Value Reference Range Interpretation Comments Glucose POC (test 138 mg/dL 70-115 H Notify RN or MDIf you code = Glucose POC) consider your patient critically ill, the Merlin-Accu Chec k Infrom II meter should not be used for Glucos e determination. Draw a venous Glucose and send to the main Lab for analysis. POC Ytjkkre2760-82-16 07:41:32 Test Item Value Reference Range Interpretation Comments Glucose POC (test 206 mg/dL 70-115 H Notify RN or MDIf you code = Glucose POC) consider your patient critically ill, the Merlin-Accu Chec k Infrom II meter should not be used for Glucos e determination. Draw a venous Glucose and send to the main Lab for analysis. Urinalysis Zqlfnlwipdy8163-92-86 21:07:21 Test Item Value Reference Range Interpretation Comments UA WBC (test code = UA WBC) TNTC 0-5 A UA RBC (test code = UA RBC) 6-10 0-5 A UA Bacteria (test code = UA Bacteria) Profuse A UA Squam Epithelial (test code = UA 6-10 A Squam Epithelial) Urinalysis with Culture, if [id number] 20:35:14 Test Item Value Reference Range Interpretation [...] Micro Indicated Not Indicated A Ind?) POC Fsatxqw2263-08-43 19:06:34 Test Item Value Reference Range Interpretation Comments Glucose POC (test 207 mg/dL 70-115 H If you con senior accountant your code = Glucose POC) patient critically ill, the Merlin-Accu Check Infrom II meter should not be used for Glucose determination. Draw a venous Glucose and send to the main Lab for analysis. POC Vfxztfu8679-05-14 17:12:03 Test Item Value Reference Range Interpretation Comments Glucose POC (test 173 mg/dL 70-115 H Notify RN or MDIf you code = Glucose POC) consider your patient critically ill, the Merlin-Accu Chec k Infrom II meter should not be used for Glucos e determination. Draw a venous Glucose and send to the main Lab for analysis. POC Ffmdtiu3690-29-16 11:58:01 Test Item Value Reference Range Interpretation Comments Glucose POC (test 289 mg/dL 70-115 H Notify RN or MDIf you code = Glucose POC) consider your patient critically ill, the Merlin-Accu Chec k Infrom II meter should not be used for Glucos e determination. Draw a venous Glucose and send to the main Lab for analysis. POC Jhhaboe6322-64-42 08:19:37 Test Item Value Reference Range Interpretation Comments Glucose POC (test 201 mg/dL 70-115 H Notify RN or MDIf you code = Glucose POC) consider your patient critically ill, the Merlin-Accu Chec k Infrom II meter should not be used for Glucos e determination. Draw a venous Glucose and send to the main Lab for analysis. POC Vcprtnu7065-07-10 20:37:35 Test Item Value Reference Range Interpretation Comments Glucose POC (test 272 mg/dL 70-115 H If you con senior accountant your code = Glucose POC) patient critically ill, the Merlin-Accu Check Infrom II meter should not be used for Glucose determination. Draw a venous Glucose and send to the main Lab for analysis. POC Uppdcij6960-30-85 17:23:05 Test Item Value Reference Range Interpretation Comments Glucose POC (test 229 mg/dL 70-115 H If you con senior accountant your code = Glucose POC) patient critically ill, the Merlin-Accu Check Infrom II meter should not be used for Glucose determination. Draw a venous Glucose and send to the main Lab for analysis. POC Adakqfa3786-58-09 12:01:01 Test Item Value Reference Range Interpretation Comments Glucose POC (test 155 mg/dL 70-115 H If you con senior accountant your code = Glucose POC) patient critically ill, the Merlin-Accu Check Infrom II meter should not be used for Glucose determination. Draw a venous Glucose and send to the main Lab for analysis. POC Ftkrrkx4029-39-66 08:07:32 Test Item Value Reference Range Interpretation Comments Glucose POC (test 248 mg/dL 70-115 H If you con senior accountant your code = Glucose POC) patient critically ill, the Merlin-Accu Check Infrom II meter should not be used for Glucose determination. Draw a venous Glucose and send to the main Lab for analysis. IG Vavic6899-42-30 06:50:39 Test Item Value Reference Range Interpretation Comments IG (test code = IG) 0.7 % 0.0-5.0 IG Abs (test code = IG Abs) 0 x10 N Complete Blood Count with Jjvdzklvzoeu6104-82-73 06:50:38 Test Item Value Reference Range Interpretation [...] code = IPF) 0 % N Automated Nhvtwlmhljjv4537-93-61 06:50:38 Test Item Value Reference Range Interpretation Comments Neutro Auto (test code = Neutro 50.3 % 36.0-70.0 Auto) Lymph Auto (test code = Lymph Auto) 38.6 % 12.0-44.0 [place] Auto (test code = [place] Auto) 7.3 % 0.0-11.0 Eos, Auto (test code = Eos, Auto) 2.4 % 0.0-7.0 Basophil Auto (test code = Basophil 0.7 % 0.0-2.0 Auto) Neutro Absolute (test code = Neutro 3.0 x10 1.6-7.4 Absolute) Lymph Absolute (test code = Lymph 2.28 x10 .50-4.60 Absolute) [place] Absolute (test code = [place] .43 x10 .00-1.20 Absolute) Eos Absolute (test code = Eos 0.14 x10 0.00-0.74 Absolute) Baso Absolute (test code = Baso 0.04 x10 0.00-0.21 Absolute) Basic Metabolic [id number] 05:38:20 Test Item Value Reference Range Interpretation [...] = Lipemia) 0 mg/dL 8-11 Basic Metabolic [id number] 05:38:20 Test Item Value Reference Range Interpretation [...] = 0 mg/dL 8-11 Lipemia) Basic Metabolic [id number] 05:38:20 Test Item Value Reference Range Interpretation [...] ag e have not been validated by [facility] MDRD study and should be interpreted wit [...] not provided, and t he patient is -Yluiet n, multiply by 1.2 12. If sex is not provided, and t he patient is fema le, multiply by 0.7 42. Results for pat ients <18 years of ag e have not been validated by [facility] MDRD study and should be interpreted wit [...] code = 0 mg/dL 8-11 Lipemia) POC [id number] 20:28:33 Test Item Value Reference Range Interpretation Comments Glucose POC (test 169 mg/dL 70-115 H If you con senior accountant your code = Glucose POC) patient critically ill, the Merlin-Accu Check Infrom II meter should not be used for Glucose determination. Draw a venous Glucose and send to the main Lab for analysis. POC Gionzcv4099-13-00 16:39:30 Test Item Value Reference Range Interpretation Comments Glucose POC (test 103 mg/dL 70-115 If you con senior accountant your code = Glucose POC) patient critically ill, the Merlin-Accu Check Infrom II meter should not be used for Glucose determination. Draw a venous Glucose and send to the main Lab for analysis. RPR Ynliaahcjbc3289-89-70 12:08:56 Test Item Value Reference Range Interpretation Comments RPR Qual (test code = RPR Qual) Non-Reactive Non-Reactive Reactive Control (test code = Reactive Reactive Control) Weak Reactive Control (test Weak Reactive code = Weak Reactive Control) Non-Reactive Control (test code Non-Reactive = Non-Reactive Control) Lot # (test code = Lot #) [id number] N Expiration Dt (test code = 03-20-2021 N Expiration Dt) POC [id number] 11:52:31 Test Item Value Reference Range Interpretation Comments Glucose POC (test 250 mg/dL 70-115 H If you con senior accountant your code = Glucose POC) patient critically ill, the Merlin-Accu Check Infrom II meter should not be used for Glucose determination. Draw a venous Glucose and send to the main Lab for analysis. POC Gxajkji9884-33-23 07:55:29 Test Item Value Reference Range Interpretation Comments Glucose POC (test 205 mg/dL 70-115 H If you con senior accountant your code = Glucose POC) patient critically ill, the Merlin-Accu Check Infrom II meter should not be used for Glucose determination. Draw a venous Glucose and send to the main Lab for analysis. Lipid [id number] 05:46:04 Test Item Value Reference Range Interpretation [...] LDL/HDL Ratio=L DL Calc/HDL Chol Thyroid Stimulating Qmnmdvj2959-00-80 05:46:04 Test Item Value Reference Range Interpretation Comments TSH (test code = TSH) 3.274 mcIU/mL 0.550-4.780 Hemoglobin [id number] 05:41:08 Test Item Value Reference Range Interpretation Comments Hemoglobin A1c (test code 7.6 % 4.0-5.8 H Di abetic >=6.5 = Hemoglobin A1c) %Prediabet es 5.7-6.4 %Normal <5.7 % Hepatitis B Surface [id number] 21:19:36 Test Item Value Reference Range Interpretation Comments Hep Bs Ag (test code = Hep Bs Non-Reactive Non-Reactive Ag) Novel Coronavirus SARS-CoV-2, [id number] 11:16:16 Test Item Value Reference Range Interpretation [...] Emergency Use Authorization." Novel Coronavirus (COVID-19), EMANUEL [id number] 11:11:24TNPTest not sent and performed at [facility]Rapid was perfomed in Microbiology.Wrong covid test was ord ered.Urine DOA [id number] 00:17:49 Test Item Value Reference Range Interpretation [...] Propoxyphene Confirmation wi thin 7 days. Alcohol [id number] 00:17:29 Test Item Value Reference Range Interpretation Comments Ethanol Level 9.0 mg/dL N The pharmacolo gical (test code = response to blo od alcohol Ethanol Level) levels may va ry from individual to i ndividual. The fatal omkar ntration has been report ed to be >400 mg/dl. Comprehensive Metabolic [id number] 00:17:28 Test Item Value Reference Range Interpretation [...] = Lipemia) 0 g/dL 1-2 Comprehensive Metabolic [id number] 00:17:28 Test Item Value Reference Range Interpretation [...] = 0 g/dL 1-2 Lipemia) Comprehensive Metabolic [id number] 00:17:28 Test Item Value Reference Range Interpretation [...] g/dL 1-2 Lipemia) Complete Blood Count with Rnafxjpazova8818-90-06 23:26:28 Test Item Value Reference Range Interpretation [...] code = IPF) 0 % N Automated Nrnnkfypdzpl9570-28-28 23:26:28 Test Item Value Reference Range Interpretation Comments Neutro Auto (test code = Neutro 67.1 % 36.0-70.0 Auto) Lymph Auto (test code = Lymph Auto) 23.3 % 12.0-44.0 [place] Auto (test code = [place] Auto) 5.8 % 0.0-11.0 Eos, Auto (test code = Eos, Auto) 2.3 % 0.0-7.0 Basophil Auto (test code = Basophil 0.8 % 0.0-2.0 Auto) Neutro Absolute (test code = Neutro 6.0 x10 1.6-7.4 Absolute) Lymph Absolute (test code = Lymph 2.10 x10 .50-4.60 Absolute) [place] Absolute (test code = [place] .52 x10 .00-1.20 Absolute) Eos Absolute (test code = Eos 0.21 x10 0.00-0.74 Absolute) Baso Absolute (test code = Baso 0.07 x10 0.00-0.21 Absolute) IG [id number] 23:26:28 Test Item Value Reference Range Interpretation Comments IG (test code = IG) 0.7 % 0.0-5.0 IG Abs (test code = IG Abs) 0 x10 N HERPES VIRUS ANTIBODY, [id number] 21:46:00 Test Item Value Reference Range Interpretation Comments HERPES VIRUS IGM (BEAKER) Negative SE E ATTACHMENT (test code = 1808) BLOOD [id number] 06:00:00 Test Item Value Reference Range Interpretation Comments CULTURE (BEAKER) (test No growth in 5 days code = 1095) BLOOD [id number] 06:00:00 Test Item Value Reference Range Interpretation Comments CULTURE (BEAKER) (test No growth in 5 days code = 1095) POCT-GLUCOSE [id number] 12:11:00 Test Item Value Reference Range Interpretation Comments POC-GLUCOSE METER 154 mg/dL 70-[address] [facility] 6720 (BEAKER) (test code = [place] [facility] 1538) [address] POCT-GLUCOSE [id number] 07:53:00 Test Item Value Reference Range Interpretation Comments POC-GLUCOSE METER 87 mg/dL 70-110 TESTED AT [place] [id number] [facility] (test code = [place] [facility] [address] 1538) POCT-GLUCOSE [id number] 06:49:00 Test Item Value Reference Range Interpretation Comments POC-GLUCOSE METER 79 mg/dL 70-110 TESTED AT [place] [address] ([facility] (test code = [place] [facility] [address] 1538) COMPREHENSIVE METABOLIC [id number] 06:15:00 Test Item Value Reference Range Interpretation [...] S NOT APPLICABLE FOR DIALYSIS PATIEN TS. [id number] 06:11:00 Test Item Value Reference Range Interpretation Comments MAGNESIUM (BEAKER) (test code = 2.1 mg/dL 1.6-2.6 627) HEPATIC FUNCTION [id number] 06:11:00 Test Item Value Reference Range Interpretation [...] code = 513 U/L 6-55 H 347) [id number] 05:30:00 Test Item Value Reference Range Interpretation Comments FIBRINOGEN LEVEL (BEAKER) (test 368 mg/dl 225-434 code = 658) [id number] 05:30:00 Test Item Value Reference Range Interpretation Comments PARTIAL THROMBOPLASTIN TIME 42.2 seconds 22.5-36.0 H (BEAKER) (test code = 760) PROTHROMBIN [id number] 05:29:00 Test Item Value Reference Range Interpretation Comments PROTIME (BEAKER) (test code = 14.8 seconds 11.7-14.7 H 759) INR (BEAKER) (test code = 370) 1.2 <=5.9 RECOMMENDED COUMADIN/WARFARIN INR THERAPY RANGESSTANDARD DOSE: 2.0 - 3.0 Includes: PROPHYLAXIS forvenous thrombosis, systemic embolization; TREATMENT for venous thrombosis and/or pulmonary embolus.HIGH RISK: Target INR is 2.5-3.5 for patients with mechanical heart valves.POCT-GLUCOSE [id number] 21:09:00 Test Item Value Reference Range Interpretation Comments POC-GLUCOSE METER 178 mg/dL 70-110 H TESTED AT [place] [address] ([facility]) (test code = [facility] 1538) [address] POCT-GLUCOSE [id number] 17:18:00 Test Item Value Reference Range Interpretation Comments POC-GLUCOSE METER 178 mg/dL 70-110 H TESTED AT [place] [address] ([facility]) (test code = [facility] 1538) [address] POCT-GLUCOSE [id number] 13:48:00 Test Item Value Reference Range Interpretation Comments POC-GLUCOSE METER 150 mg/dL 70-110 H TESTED AT [place] [address] ([facility]) (test code = [facility] 1538) [address] FACTOR 5 ACTIVITY (BLEEDING RISK)2017-01-06 10:04:00 Test Item Value Reference Range Interpretation Comments FACTOR V ACTIVITY ([facility]) (test code 90.0 % 60.0-150.0 = 665) Effective 10/24/2013: Reference Range Change-Adult onlyNew: 60.0-150.0 Previous: 50.0-150.0CYTOMEGALOVIRUS ANTIBODY, [id number] 09:42:00 Test Item Value Reference Range Interpretation Comments CYTOMEGALOVIRUS IGM ANTIBODY Negative ([facility]) (test code = 816) HERPES VIRUS ANTIBODY, [id number] 08:59:00 Test Item Value Reference Range Interpretation Comments 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[facility]) (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 G 1807) CYTOMEGALOVIRUS ANTIBODY, [id number] 08:59:00 Test Item Value Reference Range Interpretation Comments CYTOMEGALOVIRUS IGG ANTIBODY Positive ([facility]) (test code = 790) EBV-VCA ANTIBODY, [id number] 08:59:00 Test Item Value Reference Range Interpretation Comments JASE-WALL VCA IGG ([facility]) (test Positive code = 983) EBV-VCA ANTIBODY, [id number] 08:59:00 Test Item Value Reference Range Interpretation Comments JASE-WALL VCA IGM ([facility]) (test Negative code = 984) POCT-GLUCOSE [id number] 07:59:00 Test Item Value Reference Range Interpretation Comments POC-GLUCOSE METER 81 mg/dL 70-[address] [facility] 6720 (BEAKER) (test code = [place] [address] 1538) COMPREHENSIVE METABOLIC [id number] 06:23:00 Test Item Value Reference Range Interpretation [...] S NOT APPLICABLE FOR DIALYSIS PATIEN TS. [id number] 06:17:00 Test Item Value Reference Range Interpretation Comments MAGNESIUM (BEAKER) (test code = 1.8 mg/dL 1.6-2.6 627) HEPATIC FUNCTION [id number] 06:17:00 Test Item Value Reference Range Interpretation [...] code = 779 U/L 6-55 H 347) [id number] 06:00:00 Test Item Value Reference Range Interpretation Comments FIBRINOGEN LEVEL (BEAKER) (test 390 mg/dl 225-434 code = 658) [id number] 06:00:00 Test Item Value Reference Range Interpretation Comments PARTIAL THROMBOPLASTIN TIME 40.2 seconds 22.5-36.0 H (BEAKER) (test code = 760) PROTHROMBIN [id number] 05:59:00 Test Item Value Reference Range Interpretation Comments PROTIME (BEAKER) (test code = 14.6 seconds 11.7-14.7 759) INR (BEAKER) (test code = 370) 1.2 <=5.9 RECOMMENDED COUMADIN/WARFARIN INR THERAPY RANGESSTANDARD DOSE: 2.0 - 3.0 Includes: PROPHYLAXIS forvenous thrombosis, systemic embolization; TREATMENT for venous thrombosis and/or pulmonary embolus.HIGH RISK: Target INR is 2.5-3.5 for patients with mechanical heart valves.POCT-GLUCOSE [id number] 21:46:00 Test Item Value Reference Range Interpretation Comments POC-GLUCOSE METER 153 mg/dL 70-[address] [facility] 67 ([facility]) (test code = [facility] 1538) [address] POCT-GLUCOSE [id number] 18:47:00 Test Item Value Reference Range Interpretation Comments POC-GLUCOSE METER 181 mg/dL 70-[address] [facility] 6720 ([facility]) (test code = [facility] 1538) [address] POCT-GLUCOSE [id number] 12:40:00 Test Item Value Reference Range Interpretation Comments POC-GLUCOSE METER 178 mg/dL 70-[address] [facility] 6720 (BEAKER) (test code = [place] [facility] 1538) [address] POCT-GLUCOSE [id number] 07:51:00 Test Item Value Reference Range Interpretation Comments POC-GLUCOSE METER 166 mg/dL 70-[address] [facility] 67[address] [facility] (test code = [place] [facility] 1538) [address] COMPREHENSIVE METABOLIC [id number] 03:26:00 Test Item Value Reference Range Interpretation [...] S NOT APPLICABLE FOR DIALYSIS PATIEN TS. [id number] 03:22:00 Test Item Value Reference Range Interpretation Comments MAGNESIUM (BEAKER) (test code = 1.4 mg/dL 1.6-2.6 L 627) HEPATIC FUNCTION [id number] 03:22:00 Test Item Value Reference Range Interpretation [...] code = 1009 U/L 6-55 H 347) [id number] 03:12:00 Test Item Value Reference Range Interpretation Comments AMMONIA (BEAKER) (test code = 348) 29 mol/L 18-72 [id number] 03:10:00 Test Item Value Reference Range Interpretation Comments PARTIAL THROMBOPLASTIN TIME 42.3 seconds 22.5-36.0 H (BEAKER) (test code = 760) PROTHROMBIN [id number] 03:09:00 Test Item Value Reference Range Interpretation Comments PROTIME (BEAKER) (test code = 16.4 seconds 11.7-14.7 H 759) INR (BEAKER) (test code = 370) 1.3 <=5.9 RECOMMENDED COUMADIN/WARFARIN INR THERAPY RANGESSTANDARD DOSE: 2.0 - 3.0 Includes: PROPHYLAXIS forvenous thrombosis, systemic embolization; TREATMENT for venous thrombosis and/or pulmonary embolus.HIGH RISK: Target INR is 2.5-3.5 for patients with mechanical heart valves.[id number] 03:09:00 Test Item Value Reference Range Interpretation Comments FIBRINOGEN LEVEL (BEAKER) (test 413 mg/dl 225-434 code = 658) CBC W/PLT COUNT & AUTO [id number] 03:09:00 Test Item Value Reference Range Interpretation [...] L 0.00-0.20 (test code = 417) 0.00POCT-GLUCOSE [id number] 22:33:00 Test Item Value Reference Range Interpretation Comments POC-GLUCOSE METER 230 mg/dL 70-[address] [facility] 6720 (BEAKER) (test code = [place] [facility] 1538) [address] POCT-GLUCOSE [id number] 18:17:00 Test Item Value Reference Range Interpretation Comments POC-GLUCOSE METER 222 mg/dL 70-[address] [facility] 67[address] ([facility] (test code = [facility] 1538) [address] COMPREHENSIVE METABOLIC [id number] 16:59:00 Test Item Value Reference Range Interpretation [...] PATIEN TS. PERIPHERAL BLOOD SMEAR - PATHOLOGIST [id number] 15:30:00 Test Item Value Reference Range Interpretation Comments RBC MORPHOLOGY Polychromasia (BEAKER) (test code = 2846) RBC MORPHOLOGY Anisocytosis (BEAKER) (test code = 48215) PERIPHERAL SMR REVIEW Cell counts confirmed (BEAKER) (test code = 8410) [id number] Josefina Lara M.D. ([facility]) (test code = (electronic signature) 5908) PROTHROMBIN [id number] 15:12:00 Test Item Value Reference Range Interpretation Comments PROTIME ([facility] (test code = 16.6 seconds 11.7-14.7 H 759) INR ([facility] (test code = 370) 1.4 <=5.9 RECOMMENDED COUMADIN/WARFARIN INR THERAPY RANGESSTANDARD DOSE: 2.0 - 3.0 Includes: PROPHYLAXIS forvenous thrombosis, systemic embolization; TREATMENT for venous thrombosis and/or pulmonary embolus.HIGH RISK: Target INR is 2.5-3.5 for patients with mechanical heart valves.ANTI-NUCLEAR ANTIBODY (IVETTE)2017-01-04 14:32:00 Test Item Value Reference Range Interpretation Comments ANTI-NUCLEAR ANTIBODY (IVETTE) ([facility]) Negative Negative (test code = 418) POCT-GLUCOSE [id number] 12:47:00 Test Item Value Reference Range Interpretation Comments POC-GLUCOSE METER 212 mg/dL 70-[address] [facility] 6720 ([facility]) (test code = [place] [facility] 1538) [address] [id number] 12:34:00 Test Item Value Reference Range Interpretation Comments RPR SCREEN ([facility]) (test code = Nonreactive Nonreactive 420) CLOSTRIDIUM DIFFICILE TOXIN [id number] 10:12:00 Test Item Value Reference Range Interpretation Comments CLOSTRIDIUM DIFFICILE TOXIN, PCR Not Detected Not Detected ([facility]) (test code = 1525) This [...] Reference Range Change-Adult onlyNew: 60.0-150.0 Previous: 50.0-150.0POCT-GLUCOSE [id number] 06:40:00 Test Item Value Reference Range Interpretation Comments POC-GLUCOSE METER 167 mg/dL 70-[address] [facility] 67[address] ([facility]) (test code = [place] 1538) [address] COMPREHENSIVE METABOLIC [id number] 04:08:00 Test Item Value Reference Range Interpretation [...] ESTIM ATED GFR. Specimen slightly ictericHEPATIC FUNCTION [id number] 04:06:00 Test Item Value Reference Range Interpretation [...] 1091 U/L 6-55 H 347) Specimen slightly emnaliwTPHYHGNZQY8080-37-68 04:01:00 Test Item Value Reference Range Interpretation Comments FIBRINOGEN LEVEL (BEAKER) (test 379 mg/dl 225-434 code = 658) [id number] 04:01:00 Test Item Value Reference Range Interpretation Comments PARTIAL THROMBOPLASTIN TIME 40.7 seconds 22.5-36.0 H (BEAKER) (test code = 760) PROTHROMBIN TIME/[id number] 04:00:00 Test Item Value Reference Range Interpretation [...] L 0.00-0.20 (test code = 417) 0.00POCT-GLUCOSE [id number] 00:19:00 Test Item Value Reference Range Interpretation Comments POC-GLUCOSE METER 159 mg/dL 70-[address] [facility] 6720 (BEAKER) (test code = [facility] 1538) [address] POCT-GLUCOSE [id number] 18:56:00 Test Item Value Reference Range Interpretation Comments POC-GLUCOSE METER 192 mg/dL 70-[address] [facility] 6720 [facility] (test code = [facility] 1538) [address] COMPREHENSIVE METABOLIC [id number] 16:55:00 Test Item Value Reference Range Interpretation [...] CALCULATE ESTIM ATED GFR. Specimen slightly ictericPROTHROMBIN TIME/[id number] 16:37:00 Test Item Value Reference Range Interpretation Comments PROTIME (BEAKER) (test code = 20.9 seconds 11.7-14.7 H 759) INR (BEAKER) (test code = 370) 1.8 <=5.9 RECOMMENDED COUMADIN/WARFARIN INR THERAPY RANGESSTANDARD DOSE: 2.0 - 3.0 Includes: PROPHYLAXIS forvenous thrombosis, systemic embolization; TREATMENT for venous thrombosis and/or pulmonary embolus.HIGH RISK: Target INR is 2.5-3.5 for patients with mechanical heart valves.HEPATITIS B SURFACE [id number] 14:05:00 Test Item Value Reference Range Interpretation Comments HEPATITIS B SURFACE ANTIBODY < mIU/mL <8.0 (BEAKER) (test code = 647) HEPATITIS B CORE ANTIBODY, [id number] 13:43:00 Test Item Value Reference Range Interpretation Comments HEPATITIS B CORE TOTAL ANTIBODY Nonreactive Nonreactive (BEAKER) (test code = 497) BLOOD GAS, [id number] 13:35:00 Test Item Value Reference Range Interpretation [...] code = 1819) 28.0 % URINALYSIS W/ [id number] 13:16:00 Test Item Value Reference Range Interpretation [...] 1584) SOURCE(BEAKER) (test code = Urine, [place] 8457) VITAMIN D, 35-[id number] 13:14:00 Test Item Value Reference Range Interpretation Comments VITAMIN D 25-OH (BEAKER) (test code = < ng/mL 13.0-47.8 L 2764) ALPHA FETOPROTEIN (AFP), TUMOR [id number] 13:06:00 Test Item Value Reference Range Interpretation Comments ALPHA-FETOPROTEIN (BEAKER) (test code < ng/mL <10.0 = 1094) Effective 05/08/2014: Reference Range ChangeNew: <10.0 Previous: 0.0-8.0 HEMOGLOBIN [id number] 13:05:00 Test Item Value Reference Range Interpretation Comments HEMOGLOBIN A1C (BEAKER) (test code = 7.6 % 4.3-6.1 H 368) CARCINOEMBRYONIC ANTIGEN (CEA)2017-01-03 12:59:00 Test Item Value Reference Range Interpretation Comments CARCINOEMBRYONIC ANTIGEN (BEAKER) 2.0 ng/mL 0.0-5.0 (test code = 685) [id number] 12:59:00 Test Item Value Reference Range Interpretation Comments FERRITIN (BEAKER) (test code = 1841 ng/mL 5-275 H 361) Effective 05/08/2014: Reference Range ChangeNew: Male 5-275 Previous: Male 22-322 Female 5-275 Female [id number] 12:58:00 Test Item Value Reference Range Interpretation Comments T4 TOTAL (BEAKER) (test code = 895) 4.5 ug/dL 4.9-11.7 L [id number] 12:58:00 Test Item Value Reference Range Interpretation Comments THYROID STIMULATING HORMONE 1.79 uIU/mL 0.35-4.94 (BEAKER) (test code = 772) [id number] 12:58:00 Test Item Value Reference Range Interpretation Comments T3 TOTAL (BEAKER) (test code = 656) 34 ng/dL 48-159 L Effective 05/08/2014: Reference Range ChangeNew: 48-159 Previous: 60-181 CALCIUM, [id number] 12:47:00 Test Item Value Reference Range Interpretation Comments CALCIUM IONIZED (BEAKER) (test 1.05 mmol/L 1.12-1.27 L code = 698) PH, BLOOD (BEAKER) (test code = 7.43 1810) [id number] 12:42:00 Test Item Value Reference Range Interpretation [...] % 20-55 (test code = 2590) URIC [id number] 12:40:00 Test Item Value Reference Range Interpretation Comments URIC ACID (BEAKER) (test code = 16.0 mg/dL 2.6-7.2 H 773) Specimen slightly ictericLIPID [id number] 12:40:00 Test Item Value Reference Range Interpretation [...] 160-189 Very High >=190 Specimen slightly ictericBILIRUBIN, [id number] 12:40:00 Test Item Value Reference Range Interpretation Comments BILIRUBIN DIRECT (BEAKER) (test 2.4 mg/dL 0.1-0.5 H code = 706) GAMMA GLUTAMYL TRANSFERASE (GGT)2017-01-03 12:40:00 Test Item Value Reference Range Interpretation Comments GAMMA GLUTAMYL TRANSFERASE (BEAKER) 53 U/L 9-64 (test code = 364) Specimen slightly [id number] 12:39:00 Test Item Value Reference Range Interpretation Comments ETHANOL (BEAKER) (test code = 400) < mg/dL <=10 SCREEN, [id number] 12:36:00 Test Item Value Reference Range Interpretation Comments TEST URINE (BEAKER) (test Negative code = 583) POCT-GLUCOSE [id number] 12:34:00 Test Item Value Reference Range Interpretation Comments POC-GLUCOSE METER 189 mg/dL 70-110 H TESTED AT [place] [address] (BEAKER) (test code = [place] 1538) [address] HIV-1 ANTIGEN WITH HIV-1/2 [id number] 11:58:00 Test Item Value Reference Range Interpretation Comments HIV-1 ANTIGEN WITH HIV 1\\T\\2 Nonreactive Nonreactive ANTIBODY (2) (BEAKER) (test code = 2586) TROPONIN [id number] 09:44:00 Test Item Value Reference Range Interpretation [...] Previous: 0.0-4.9CK-MB Reference Range:<6.7 Normal6.7-10.0 Borderline>10.0 AbnormalACETAMINOPHEN [id number] 08:31:00 Test Item Value Reference Range Interpretation Comments ACETAMINOPHEN LEVEL (BEAKER) (test < ug/mL 10.0-30.0 L code = 344) TROPONIN [id number] 05:53:00 Test Item Value Reference Range Interpretation [...] acute neurological disease, and persistent tachyarrhythmia.BASIC METABOLIC [id number] 05:53:00 Test Item Value Reference Range Interpretation [...] TO CALCULA TE ESTIMATED GFR. Specimen slightly kpeyigeGICZTTSIRD1937-97-02 05:52:00 Test Item Value Reference Range Interpretation Comments PHOSPHORUS (BEAKER) (test code = 5.7 mg/dL 2.3-4.7 H 604) HEPATIC FUNCTION [id number] 05:52:00 Test Item Value Reference Range Interpretation [...] Specimen slightly ictericCREATINE KINASE (CK), TOTAL AND [id number] 05:52:00 Test Item Value Reference Range Interpretation Comments CREATINE KINASE TOTAL (BEAKER) 341 U/L 29-200 H (test code = 380) CREATINE KINASE-MB (BEAKER) (test 5.4 ng/mL 0.0-6.6 code = 750) CREATINE KINASE-MB INDEX (BEAKER) 1.6 % (test code = 395) Effective 05/08/2014: CK-MB Reference Range ChangeNew: 0.0-6.6 Previous: 0.0-4.9CK-MB Reference Range:<6.7 Normal6.7-10.0 Borderline>10.0 AbnormalCBC W/PLT COUNT & AUTO [id number] 05:48:00 Test Item Value Reference Range Interpretation [...] K/ L 0.00-0.20 (test code = 417) 0.27KIXWVLEZOW5166-50-18 05:09:00 Test Item Value Reference Range Interpretation Comments FIBRINOGEN LEVEL (BEAKER) (test 427 mg/dl 225-434 code = 658) [id number] 05:09:00 Test Item Value Reference Range Interpretation Comments PARTIAL THROMBOPLASTIN TIME 36.2 seconds 22.5-36.0 H (BEAKER) (test code = 760) PROTHROMBIN TIME/[id number] 05:08:00 Test Item Value Reference Range Interpretation Comments PROTIME (BEAKER) (test code = 22.8 seconds 11.7-14.7 H 759) INR (BEAKER) (test code = 370) 2.0 <=5.9 RECOMMENDED COUMADIN/WARFARIN INR THERAPY RANGESSTANDARD DOSE: 2.0 - 3.0 Includes: PROPHYLAXIS forvenous thrombosis, systemic embolization; TREATMENT for venous thrombosis and/or pulmonary embolus.HIGH RISK: Target INR is 2.5-3.5 for patients with mechanical heart valves.HEPATITIS PANEL, [id number] 03:40:00 Test Item Value Reference Range Interpretation Comments HEPATITIS A IGM ANTIBODY (BEAKER) Nonreactive Nonreactive (test code = 498) HEPATITIS B CORE IGM ANTIBODY Nonreactive Nonreactive (BEAKER) (test code = 645) HEPATITIS C ANTIBODY (BEAKER) Nonreactive Nonreactive (test code = 367) HEPATITIS B SURFACE ANTIGEN (2) Nonreactive Nonreactive (BEAKER) (test code = 2585) CREATININE, RANDOM [id number] 03:18:00 Test Item Value Reference Range Interpretation Comments CREATININE URINE (BEAKER) (test 118.7 mg/dL code = 375) Reference Range: No NormalsSODIUM, RANDOM [id number] 03:18:00 Test Item Value Reference Range Interpretation Comments SODIUM URINE (BEAKER) (test code = 60 meq/L 243) Reference Range: No NormalsUREA NITROGEN, RANDOM [id number] 03:18:00 Test Item Value Reference Range Interpretation Comments UREA NITROGEN URINE (BEAKER) (test 303 mg/dL code = 538) Reference Range: No BzwopssHNCIILK1772-80-69 03:07:00 Test Item Value Reference Range Interpretation Comments AMMONIA (BEAKER) (test code = 348) 48 mol/L 18-72 A-HQYFB3433-12YIVMX2783-55-24 02:57:00 Test Item Value Reference Range Interpretation [...] within 95-100% range. URINALYSIS W/ REFLEX URINE [id number] 02:53:00 Test Item Value Reference Range Interpretation [...] = 514) SOURCE(BEAKER) (test code = 2795) [id number] 02:49:00 Test Item Value Reference Range Interpretation Comments PARTIAL THROMBOPLASTIN TIME 39.4 seconds 22.5-36.0 H (BEAKER) (test code = 760) PROTHROMBIN TIME/[id number] 02:48:00 Test Item Value Reference Range Interpretation Comments PROTIME (BEAKER) (test code = 22.0 seconds 11.7-14.7 H 759) INR (BEAKER) (test code = 370) 1.9 <=5.9 RECOMMENDED COUMADIN/WARFARIN INR THERAPY RANGESSTANDARD DOSE: 2.0 - 3.0 Includes: PROPHYLAXIS forvenous thrombosis, systemic embolization; TREATMENT for venous thrombosis and/or pulmonary embolus.HIGH RISK: Target INR is 2.5-3.5 for patients with mechanical heart valves.[id number] 02:48:00 Test Item Value Reference Range Interpretation Comments FIBRINOGEN LEVEL (BEAKER) (test 421 mg/dl 225-434 code = 658) BLOOD GAS, [id number] 02:43:00 Test Item Value Reference Range Interpretation [...] 21.0 % CBC W/PLT COUNT & AUTO [id number] 02:43:00 Test Item Value Reference Range Interpretation [...] code = 417) 0.00LACTIC ACID, VENOUS, WHOLE [id number] 02:35:00 Test Item Value Reference Range Interpretation Comments LACTATE BLOOD VENOUS (2) (BEAKER) 0.8 mmol/L 0.5-2.2 (test code = 2872) Effective 10/23/2015: Units/Reference Range ChangeNew: 0.5-2.2 mmol/L Previous: 5-20 mg/dLSpecimen slightly wojprdpWBHCXUZOKYHD6765-95-14 11:32:0014.6[facility] OlycpteFMAYALADISJE4171-71-36 11:32:0033[facility] PaaptzlVMPLCCQTGMHP1418-33-72 11:32:008.3[facility] UcznqiuBCCAGHCPADJF0763-76-70 11:32:0081[facility] FEZCXZWJKHOT7121-73-80 11:32:001.95[facility] RugvlpkLPKITUAAWKCL8986-57-14 11:32:0055[facility] WnlpndwISIMLFBWUISH4373-73-13 11:32:0019[facility] KKRKONXDZQJG9100-54-40 11:32:55539Ctqbhstb MdkncizRCESOSUXVFIB0439-48-50 11:32:55419Mwvtfbnz NvtechsTWQPYICMVUWJ4188-59-30 11:32:004.6[facility] ZSFDERJNRB9646-83-58 11:32:0030.4[facility] PktjdfjBRXWFORDBQ3418-40-06 11:32:00 4.5[facility] YnxxmseGTLDUTZEKP5585-29-26 11:32:0013.7[facility] HermannHEMATOLOGY 2016-07-30 11:32:002.6[facility] IkbvqdjVTGAZTPZYK4382-22-17 11:32:000.7[facility] CawrkjzNXBWFSGWWG6137-12-02 11:32:000.7[facility] RyfxfjoURAEEDJTZL2925-24-17 11:32:001.6[facility] CdvlbrsBCHDRLUVPZ5671-09-93 11:32:000.2[facility] UYSGUREWHR3706-19-38 11:32:0050.7[facility] QdwbxgpQCADNHTXCS8143-00-76 11:32:00 28.1[facility] FaekgdbEHUADSGVIJ9198-85-57 11:32:003.39[facility]annHEMATOLOGY 2016-07-30 11:32:008.9[facility] BubctjaFMINIMXQQL8405-51-72 11:32:005.1[facility] HtqtgdoIOROPMASSR6714-62-75 11:32:0011.3[facility] WenskqfOYKFABPFNH5548-99-80 11:32:17043Blijmsht DukdkpjABGQLOTDWK9223-91-31 11:32:0031.8[facility] HFLDUTDHNV8252-29-90 11:32:0018.0[facility] ZawjisaVWHCFTGTWJ5714-07-37 11:32:00 83.0[facility] ZwhfkrvSJDFZQBVCQ4625-45-22 11:32:00 Test Item Value Reference Range Interpretation Comments MCH (test code = MCH) 26.4 pg 27.0-31.0 [facility] EsbwoizNRKXWTNUNI7491-72-05 11:32:95696Funxrcuy HermannIMMUNOLOGY 2016-07-30 11:32:00Negative *NA*(07/30/16 5:32 AM)[facility] HermannELECTROLYTES 2016-07-30 11:32:0014.6[facility] GhlhbmfCZXFHYPNWNHF9644-28-67 11:32:0033[facility] HytnxycVRXFLCBBAOUU6069-87-73 11:32:008.3[facility] DxjvhodZJRZBOKCVWSC3337-17-68 11:32:0081[facility] LwqjcwdKXUNOJXVDAUN0597-48-68 11:32:001.95[facility] WDHSULLQUXCH1020-62-58 11:32:0055[facility] MoixvgjKFWMMNKKOUFM4460-93-07 11:32:00 19[facility] GnwaduoCVNSYOBAFOEZ0603-18-84 11:32:98281Knxfdagf HermannELECTROLYTES 2016-07-30 11:32:02266Yufeliih PlqnslzUJNXQIQBHJLB5289-72-53 11:32:004.6[facility] ZxsobsoAZPNYWOHGK5855-97-18 11:32:0030.4[facility] UolwzrvKCBATLENNN8980-90-04 11:32:004.5[facility] UmydlpdXSNIRMBMBK1608-22-33 11:32:0013.7[facility] JGITQNYASX9773-95-53 11:32:002.6[facility] ZabyppyOBWFVABMQK0140-40-73 11:32:000.7 [facility] KwmjscjCHIEPODCXZ7490-43-49 11:32:000.7[facility] HermannHEMATOLOGY 2016-07-30 11:32:001.6[facility] UzeeknaVDCGIZWBGG1740-15-46 11:32:000.2[facility] QfyalvjWMHNIFVZDE6713-73-09 11:32:0050.7[facility] DudkyynLRPBIWDDXB0825-71-81 11:32:0028.1[facility] TvgveewRUIZCCDGEL0498-68-18 11:32:003.39[facility] XUVWSOEUDX6338-30-37 11:32:008.9[facility] NwisqdzQWOPBPTIQW8759-50-89 11:32:005.1 [facility] IeiaehpCBXVCQCIJX2962-08-69 11:32:0011.3[facility] HermannHEMATOLOGY 2016-07-30 11:32:40185Xdwphswq AqztikaMOTHDATNPI8233-03-93 11:32:0031.8[facility] UyhhdjrTHIMMMFNDJ1539-37-14 11:32:0018.0[facility] SukynhbSZBPCKAWOO0776-88-02 11:32:0083.0[facility] AxetvfkVOCOIOGQOX3588-85-47 11:32:00 Test Item Value Reference Range Interpretation Comments MCH (test code = MCH) 26.4 pg 27.0-31.0 [facility] WubuyhwUXUJRLJYKE6825-78-34 11:32:80729Iiyezcai HermannIMMUNOLOGY 2016-07-30 11:32:00Negative *NA*(07/30/16 5:32 AM)[facility] HermannELECTROLYTES 2016-07-30 11:32:0014.6[facility] SnppdmcTRPIWMYAENDT5856-56-89 11:32:0033[facility] RmxaexnHAYICXQVVSBD5617-40-49 11:32:008.3[facility] FxllzicDBFUIQJVIGWY2275-21-42 11:32:0081[facility] NczecqoDOAXQAQABVBS9269-15-94 11:32:001.95[facility] VGMOTEXRJXUD6236-14-13 11:32:0055[facility] YvevudwBVKMJQNOQUKU2458-42-37 11:32:00 19[facility] WnqejxwFTYJNABDIJZF2270-68-79 11:32:32371Hznrozpn HermannELECTROLYTES 2016-07-30 11:32:25174Stalgxhe PonuqrqNMGXAQIAVRCW9526-26-31 11:32:004.6[facility] RfsyvhtTZMONOTDEP9631-71-32 11:32:0030.4[facility] ArdmavxFBBGCPNIIU6396-65-84 11:32:004.5[facility] GbvfyojSTHTSWLTZE8065-45-11 11:32:0013.7[facility] ZVZGQQNHBX5931-72-26 11:32:002.6[facility] JeajezzTLPVREAQNH7998-02-61 11:32:000.7 [facility] BzyhmesXXEEDQIXDK1160-04-59 11:32:000.7[facility]annHEMATOLOGY 2016-07-30 11:32:001.6[facility] ZwekkjfIUQXQJEQMN0672-27-10 11:32:000.2[facility] LmrtrvrVEHGHPWCEF1395-83-35 11:32:0050.7[facility] PlfykanQYVBVUJYGJ2277-82-66 11:32:0028.1[facility] NllsarjMMQHHXFPQO0383-65-18 11:32:003.39[facility] CBAWGQATOD6715-73-60 11:32:008.9[facility] BssqfybDBIVSOUSZM1638-14-34 11:32:005.1 [facility] MyqfdqyZBBAIKJAXW0929-55-64 11:32:0011.3[facility]annHEMATOLOGY 2016-07-30 11:32:16708Cmiqjscd LaowuhrCAWVYKFYCX2683-90-89 11:32:0031.8[facility] RarxlvtAQIXUKQUGT8132-79-51 11:32:0018.0[facility] KpqnvmyDBYLFQEMOV0897-48-91 11:32:0083.0[facility] OvhlofoBFMXRPNKDO3495-25-00 11:32:00 Test Item Value Reference Range Interpretation Comments MCH (test code = MCH) 26.4 pg 27.0-31.0 [facility] QgiylqmULZIEYWIKF2414-93-06 11:32:16131Leswnqzh HermannIMMUNOLOGY 2016-07-30 11:32:00Negative *NA*(07/30/16 5:32 AM)[facility] HermannELECTROLYTES 2016-07-30 11:32:0014.6[facility] TirpoilRNIOEJBNMJAM3099-57-90 11:32:0033[facility] EkrnclgTXQQOJIBGPMD7494-16-30 11:32:008.3[facility] EgvisbaJCZTNMTMWFNJ7697-59-85 11:32:0081[facility] HudprdlAZHFJMZZSFOF0890-33-66 11:32:001.95[facility] IXZUJFLIFQHE5285-64-65 11:32:0055[facility] VzasvgmYCBIBKMRAHNX4899-61-92 11:32:00 19[facility] CbuglhaBEKGBLAKBGLQ7848-00-78 11:32:28377Vlgixabx HermannELECTROLYTES 2016-07-30 11:32:10200Vyongpwc HrfpyhwFBPNULWEVEFI7176-52-52 11:32:004.6[facility] NmyfxzlSYLVOAABGP3180-12-07 11:32:0030.4[facility] HujdwgiNIKKRVDFKN7390-39-59 11:32:004.5[facility] HexwellNHAMOWNMFI8751-95-98 11:32:0013.7[facility] LSRIIKECOD0044-60-64 11:32:002.6[facility] SoebhiyISLGYCFVTQ0388-32-47 11:32:000.7 [facility] IsahhwtUKMPCMBHNQ9529-41-86 11:32:000.7[facility] HermannHEMATOLOGY 2016-07-30 11:32:001.6[facility] OcqlgllFENLDQMTUY0541-38-16 11:32:000.2[facility] ByhfvnnMXRZIDYGCC8770-79-98 11:32:0050.7[facility] FomvnfhDZDHBSVIUT7974-52-18 11:32:0028.1[facility] TgixytfSJPVWSANGZ6675-41-63 11:32:003.39[facility] QAVKJGWYDN5431-72-77 11:32:008.9[facility] MscogrqZLEQZQLDWF2149-90-67 11:32:005.1 [facility] OuzisbtHQPJPOBXUT5957-56-57 11:32:0011.3[facility] HermannHEMATOLOGY 2016-07-30 11:32:74677Hkkjcoxg GyemtekGMJWKNCTMD1592-63-18 11:32:0031.8[facility] GtjqbjdRKGMIAKSVV5464-58-18 11:32:0018.0[facility] PrvjnymTBYOCDBADO4517-60-76 11:32:0083.0[facility] DvsfitjFBROFJELJE0893-89-97 11:32:00 Test Item Value Reference Range Interpretation Comments MCH (test code = MCH) 26.4 pg 27.0-31.0 [facility] GthuoxyQAQAFGZVJJ2913-20-05 11:32:09342Mkxtgcgw HermannIMMUNOLOGY 2016-07-30 11:32:00Negative *NA*(07/30/16 5:32 AM)[facility] HermannELECTROLYTES 2016-07-30 11:32:0014.6[facility] SrgzgucSLBFBPRNIZJM6931-11-26 11:32:0033[facility] IhxdsfwUGAZKSNWDQJF9811-91-23 11:32:008.3[facility] CkeggzzLYLPWBKCLWNL7011-49-16 11:32:0081[facility] GguuhcmAYRUSFVEJUVR3351-90-18 11:32:001.95[facility] MCMBBTZFEJCV9438-87-55 11:32:0055[facility] TjnzmvdKXUCIVXLZRHZ6509-46-97 11:32:00 19[facility] XfmvhcwQIFALZDGOOUO0167-99-05 11:32:36429Xoyrkflo HermannELECTROLYTES 2016-07-30 11:32:70887Mgvfcqpv OhxexmbXGJVEQFBVOLY9911-55-51 11:32:004.6[facility] AvetwahNUYSBJDOXM6195-58-05 11:32:0030.4[facility] XkrtgotOBWCOBTHPX1211-42-33 11:32:004.5[facility] HakboryKOFSHWCQWB8018-57-23 11:32:0013.7[facility] SBEFOMECJJ9318-59-78 11:32:002.6[facility] YxncmpbGXYESRJLQB0481-04-57 11:32:000.7 [facility] CszuexbBHYXJTMGSQ0703-57-85 11:32:000.7[facility]annHEMATOLOGY 2016-07-30 11:32:001.6[facility] UwpjganOVYYASDSQD5281-31-22 11:32:000.2[facility] PzgimbkKNBIJORXDS7920-32-04 11:32:0050.7[facility] FeplojaOCFXCLANRN7524-10-12 11:32:0028.1[facility] XryrflvXEOOZPFAXH8154-48-66 11:32:003.39[facility] NRNMBFCLIW9471-15-26 11:32:008.9[facility] CsggtkmIAHBPHXQEZ1992-65-98 11:32:005.1 [facility] VhmmwgyKCJCCJPXIA2269-32-84 11:32:0011.3[facility]annHEMATOLOGY 2016-07-30 11:32:17367Jqvaeelx DjvckldORWDTSCMDF9590-01-80 11:32:0031.8[facility] HapibljUODQFXICGK9905-96-64 11:32:0018.0[facility] SfjvpisQFOUBXDTOE2497-14-39 11:32:0083.0[facility] WtxsbxwJNWRJDIBXJ6135-64-63 11:32:00 Test Item Value Reference Range Interpretation Comments MCH (test code = MCH) 26.4 pg 27.0-31.0 [facility] FyzejizVHJUHIUKLE5341-00-67 11:32:93940Jdozhejc HermannIMMUNOLOGY 2016-07-30 11:32:00Negative *NA*(07/30/16 5:32 AM)[facility] HermannELECTROLYTES 2016-07-30 11:32:0014.6[facility] EwsdsmpKHVLVBKDWBBT1195-10-57 11:32:0033[facility] IdjqwvxEZRSLRUUPFNA2359-73-36 11:32:008.3[facility] OhseiwvNMMUVAUTLGJS7179-14-81 11:32:0081[facility] IktrdxeKPGDJYVLILKH9630-36-43 11:32:001.95[facility] MQCHRHECXGFT4096-72-94 11:32:0055[facility] QeknucjDQEJRWRBRWKL0071-66-66 11:32:00 19[facility] AspdtsgTQTLGUEVJBUC6970-72-15 11:32:44155Dzdaorxq HermannELECTROLYTES 2016-07-30 11:32:77660Lotyhorq AwwajhkUCLHUMDAPSFO0856-89-60 11:32:004.6[facility] VbtopgbWRMFKQRCLZ0692-71-10 11:32:0030.4[facility] BrlpsukNZDKDXTXRJ9847-72-41 11:32:004.5[facility] ZzguodmRHANJNVFPS3189-04-05 11:32:0013.7[facility] DAQVICHQCV3067-31-01 11:32:002.6[facility] CgviddfJFIYWBWODI9914-98-71 11:32:000.7 [facility] UijgyfgSUZMWBKUVU3601-81-70 11:32:000.7[facility] HermannHEMATOLOGY 2016-07-30 11:32:001.6[facility] SafmnviZVFONRPABJ0786-53-39 11:32:000.2[facility] AdxnrccUKYYTPDFOG1482-37-13 11:32:0050.7[facility] FzvfmxdIUDZQXZIZK5889-48-00 11:32:0028.1[facility] BqvmdszRJSNTTRFKT4214-93-87 11:32:003.39[facility] Vin UYHDTBHQTZ3287-63-86 11:32:008.9[facility] JcmjixhVBMWOTJHMI5092-18-22 11:32:005.1 [facility] XnhmwlsQXFCVQTABY9901-26-94 11:32:0011.3[facility] HermannHEMATOLOGY 2016-07-30 11:32:71362Fbhakoll EvfhjktYPPRVCBMYT4603-73-19 11:32:0031.8[facility] UpbnjeuBSCXCVRRVM3799-41-40 11:32:0018.0[facility] BnwejqtIIYYKYMQDY8845-50-78 11:32:0083.0[facility] JtjsxzgFPPXOEXBEB1469-99-69 11:32:00 Test Item Value Reference Range Interpretation Comments MCH (test code = MCH) 26.4 pg 27.0-31.0 [facility] FejssgdZNYKGMULQM7333-34-25 11:32:13318Mnxhqxyp HermannIMMUNOLOGY 2016-07-30 11:32:00Negative *NA*(07/30/16 5:32 AM)[facility] HermannIMMUNOLOGY 2016-07-29 11:05:00Negative *NA*(07/29/16 5:05 AM)[facility] HermannIMMUNOLOGY 2016-07-29 11:05:0092[facility] BcrstuyCSEOZPCWAS8086-11-03 11:05:00Negative *NA*(07/29/16 5:05 AM)[facility] QfthistENYEJZQFFH3782-27-12 11:05:0092[facility] CtkhisoPJWDFSFBTF3711-88-49 11:05:00Negative *NA*(07/29/16 5:05 AM)[facility] VhinrpnMLLXAEPQNV1990-26-67 11:05:0092[facility] ZkmwuzjWTFTVKSQSK8924-15-81 11:05:00Negative *NA*(07/29/16 5:05 AM)[facility] LhapapcIWVXFIMMOT9837-92-82 11:05:0092[facility] XmhtklmJLQCFZTLNH5694-75-56 11:05:00Negative *NA*(07/29/16 5:05 AM)[facility] RoldqeuNGJHBQVFHR3493-49-20 11:05:0092[facility] HermannIMMUNOLOGY 2016-07-29 11:05:00Negative *NA*(07/29/16 5:05 AM)[facility] HermannIMMUNOLOGY 2016-07-29 11:05:0092[facility] HermannCHEM EQQZO9951-11-76 15:50:0025[facility] HermannCHEM RENLS7693-30-52 15:50:0055[facility] HermannCHEM RDHCA5010-59-15 15:50:0023[facility] HermannCHEM NYAGX5383-57-45 15:50:10648Qygwqcdt HermannCHEM BNIGZ0971-75-25 15:50:73388Nptxytsn HermannCHEM BYZNT5188-29-06 15:50:004.0 [facility]annCHEM AVGRS7804-10-33 15:50:72510Zkkeqavq HermannCHEM PANEL 2016-07-28 15:50:0013.0[facility] HermannCHEM CHJXN5157-71-89 15:50:007.7[facility] HermannCHEM FZHOO9957-36-18 15:50:002.49[facility] UxysrorIDCGKGECMQ8774-93-60 15:50:00 Test Item Value Reference Range Interpretation Comments PT (test code = PT) 14.8 s 12.0-14.7 [facility] KffvtmkATMFRYUGXV8544-49-60 15:50:00 Test Item Value Reference Range Interpretation Comments PTT (test code = PTT) 40.8 s 22.9-35.8 [facility] PkmtgqpMFESPGXUIC4278-16-01 15:50:001.14[facility] HermannIMMUNOLOGY 2016-07-28 15:50:0094[facility] HermannCHEM XWAUJ5553-43-61 15:50:0025[facility] HermannCHEM UVSJX3974-46-70 15:50:0055[facility] HermannCHEM NVXZS5431-91-95 15:50:0023[facility] HermannCHEM CEOTE1833-01-25 15:50:36502Kntftnbr HermannCHEM XLNFX4320-07-37 15:50:91738Fnqpitfe HermannCHEM CUMOL6019-00-65 15:50:004.0 [facility]annCHEM CLQQY5193-87-59 15:50:02366Vehowjdp HermannCHEM PANEL 2016-07-28 15:50:0013.0[facility] HermannCHEM KMVAD7094-26-33 15:50:007.7[facility] HermannCHEM OQNWN6253-71-82 15:50:002.49[facility] SevktrlYTYTHPMTKS3958-20-82 15:50:00 Test Item Value Reference Range Interpretation Comments PT (test code = PT) 14.8 s 12.0-14.7 [facility] ZlnsksbIACUGHUEGI1505-55-10 15:50:00 Test Item Value Reference Range Interpretation Comments PTT (test code = PTT) 40.8 s 22.9-35.8 [facility] VniucadJDYQTWYOUR3098-32-08 15:50:001.14[facility] HermannIMMUNOLOGY 2016-07-28 15:50:0094[facility] HermannCHEM EWAFJ3670-07-63 15:50:0025[facility] HermannCHEM JCXYR3823-90-66 15:50:0055[facility] HermannCHEM YDPJK2261-56-72 15:50:0023[facility] HermannCHEM MSRWP2634-97-86 15:50:54143Qynjwyae HermannCHEM YQHRM3462-71-78 15:50:85385Pzhvnhhj HermannCHEM NOVSI0223-60-33 15:50:004.0 [facility]annCHEM PRDZV3977-03-04 15:50:45668Outxhitf HermannCHEM PANEL 2016-07-28 15:50:0013.0[facility] HermannCHEM ODBUF7766-62-22 15:50:007.7[facility] HermannCHEM KBIDM0732-55-65 15:50:002.49[facility] BbzodauVXIBARLBRP4747-46-31 15:50:00 Test Item Value Reference Range Interpretation Comments PT (test code = PT) 14.8 s 12.0-14.7 [facility] XnlrmgtTLOOGWEXLC1573-48-85 15:50:00 Test Item Value Reference Range Interpretation Comments PTT (test code = PTT) 40.8 s 22.9-35.8 [facility] ZrkxpxkMLMXJEIMUS9824-14-33 15:50:001.14[facility] HermannIMMUNOLOGY 2016-07-28 15:50:0094[facility] HermannCHEM IXVPJ4505-84-62 15:50:0025[facility]annCHEM NRIGS4060-46-01 15:50:0055[facility]annCHEM COGDR4935-86-45 15:50:0023[facility]annCHEM ZLXEQ4120-17-66 15:50:91443Qpwijcbo HermannCHEM JCXDO7874-63-54 15:50:83335Svswkmeb HermannCHEM HWMRS8296-41-20 15:50:004.0 [facility]annCHE[facility] YBXEO0792-11-09 15:50:09781Agnmhqhj HermannCHEM PANEL 2016-07-28 15:50:0013.0[facility]annCHEM AUDCZ2394-31-08 15:50:007.7[facility]annCHEM SWNUE8223-94-84 15:50:002.49[facility] KmavcwlVNEFDHRMPP7755-60-92 15:50:00 Test Item Value Reference Range Interpretation Comments PT (test code = PT) 14.8 s 12.0-14.7 [facility] AjicylcGVVBTPPYIF7893-33-88 15:50:00 Test Item Value Reference Range Interpretation Comments PTT (test code = PTT) 40.8 s 22.9-35.8 [facility] BvkzmbjPFRLHAIJOL8575-11-70 15:50:001.14[facility] HermannIMMUNOLOGY 2016-07-28 15:50:0094[facility]annCHEM AZHDG7945-98-85 15:50:0025[facility]annCHEM CMBVI7535-99-92 15:50:0055[facility]annCHEM HMYOF5665-50-96 15:50:0023[facility]annCHEM CGFVU6173-80-02 15:50:97934Gfnfmxku HermannCHEM LJZRQ8500-67-42 15:50:04812Doveqdkg HermannCHEM ZUSPN3134-38-40 15:50:004.0 [facility]annCHEM ZNNKC4524-77-47 15:50:35541Mfpjlqds HermannCHEM PANEL 2016-07-28 15:50:0013.0[facility]annCHEM XBOHF2405-82-27 15:50:007.7[facility]annCHEM EDAAR5667-81-99 15:50:002.49[facility] TwqxgqdAGYRJPCIJV5746-49-94 15:50:00 Test Item Value Reference Range Interpretation Comments PT (test code = PT) 14.8 s 12.0-14.7 [facility] EhpfizmCNMYQAKJOT1541-02-82 15:50:00 Test Item Value Reference Range Interpretation Comments PTT (test code = PTT) 40.8 s 22.9-35.8 [facility] LgbomylJDIKVFOIDP1849-38-49 15:50:001.14[facility] HermannIMMUNOLOGY 2016-07-28 15:50:0094[facility]annCHEM HUBCL8639-16-38 15:50:0025[facility]annCHEM BJAYT0378-46-23 15:50:0055[facility]annCHEM VWXCE8383-44-43 15:50:0023[facility]annCHEM KNTHE8866-36-67 15:50:60742Calbltsh HermannCHEM AWWZU4096-57-53 15:50:86137Awuxmctp HermannCHEM NBQQX1551-16-69 15:50:004.0 [facility]annCHE[facility] TMMUU5097-34-68 15:50:39006Epraxeze HermannCHEM PANEL 2016-07-28 15:50:0013.0[facility] HermannCHEM HDXQW9119-04-06 15:50:007.7[facility]annCHEM WKVYE2462-35-16 15:50:002.49[facility] FzbzvenHYMDPCLGHM0773-31-94 15:50:00 Test Item Value Reference Range Interpretation Comments PT (test code = PT) 14.8 s 12.0-14.7 [facility] NzgdwnnFOCCNLMPIO7207-85-09 15:50:00 Test Item Value Reference Range Interpretation Comments PTT (test code = PTT) 40.8 s 22.9-35.8 [facility] GofwiqsGZSNNQYNHA4671-20-14 15:50:001.14[facility] HermannIMMUNOLOGY 2016-07-28 15:50:0094[facility] YmhonioPWPDWQILYW4404-51-28 10:35:001.7[facility] HfufvdcIQGYNOHWMQ0437-56-65 10:35:002.7[facility] RfvcynjUPZTCVGDBU2511-42-52 10:35:000.1[facility] RtdjclnUBOMSHFTQD6738-84-70 10:35:000.7[facility] TUZOQCZNSU0527-37-56 10:35:0051.3[facility] RnkfakdZMHYYUMCJC6048-48-73 10:35:00 31.6[facility] LhazrhyVAPVUCIGHL1194-64-49 10:35:0014.1[facility] HermannHEMATOLOGY 2016-07-28 10:35:002.6[facility] IurxoxlHMIIVZVLLK8458-14-79 10:35:000.4[facility] FugdagpXWXKYBXZRU7322-57-94 10:35:0029.3[facility] FkbdtzmHZRZVRORPH5565-10-21 10:35:009.2[facility] OnkckqgACJMZOHDAT6013-06-41 10:35:003.54[facility] OJBBSOBFHH7074-25-52 10:35:005.3[facility] LztybtpQRWXSFFNKZ1636-27-04 10:35:0087 [facility] DsleltnAYZMQAIPIT5674-33-08 10:35:0031.4[facility] HermannHEMATOLOGY 2016-07-28 10:35:0017.9[facility] QcbmrmuSIXXMJTVVB0622-60-70 10:35:0010.9[facility] CvwwuhaMMLNPPVFWX2603-14-06 10:35:00 Test Item Value Reference Range Interpretation Comments MCH (test code = MCH) 26.0 pg 27.0-31.0 [facility] OodrsnxFHGSUDPXFF5761-44-93 10:35:0082.8[facility] HermannIMMUNOLOGY 2016-07-28 10:35:00Negative *NA*(07/28/16 4:35 AM)[facility]annHEMATOLOGY 2016-07-28 10:35:001.7[facility] BxjwjdmNLXGZWIIEU3813-34-88 10:35:002.7[facility] YnfuiyqPDFERMPPJL3573-48-20 10:35:000.1[facility] ZeagvyaIESLVYXZGM9797-68-88 10:35:000.7[facility] ZkxlkkfENIPRRTZQF9670-09-53 10:35:0051.3[facility] MUSTIMESIT1457-65-90 10:35:0031.6[facility] DoooqgkYPWWCMLMHO2826-26-15 10:35:00 14.1[facility] IfaoqbmLNICCGAOMC7812-29-95 10:35:002.6[facility] HermannHEMATOLOGY 2016-07-28 10:35:000.4[facility] CbabyitEGVOJBEVYK6426-66-88 10:35:0029.3[facility] TaxmmnrSYJNCNHNMS1995-13-17 10:35:009.2[facility] EemfkfvGVJNYHALBX1129-19-66 10:35:003.54[facility] HiivegyVRXGLIVEIS1843-19-10 10:35:005.3[facility] TUOCJNGMHJ2934-93-83 10:35:0087[facility] MdvvfjkQUDNVUQLWG9439-51-28 10:35:0031.4 [facility] YckfjyqKBHXXIMETP0943-38-46 10:35:0017.9[facility] HermannHEMATOLOGY 2016-07-28 10:35:0010.9[facility] CqywoblZVTTOSFCJX5046-08-03 10:35:00 Test Item Value Reference Range Interpretation Comments MCH (test code = MCH) 26.0 pg 27.0-31.0 [facility] SfxayedBCAQBGBSNV8395-87-75 10:35:0082.8[facility] HermannIMMUNOLOGY 2016-07-28 10:35:00Negative *NA*(07/28/16 4:35 AM)[facility]annHEMATOLOGY 2016-07-28 10:35:001.7[facility] WnirorsDKIGEKTRMM4456-65-25 10:35:002.7[facility] EsngmjqQDGFJFLJCM6971-20-18 10:35:000.1[facility] WlzsmvnZOXZGGCBGE4590-77-87 10:35:000.7[facility] XpzopdrDQTLFSWDBC6545-43-93 10:35:0051.3[facility] TQGQOWGUWB2457-25-99 10:35:0031.6[facility] QufcewsJAVDOOPFYD7110-95-94 10:35:00 14.1[facility] NdfhndmOBGSUCOXFI8178-24-74 10:35:002.6[facility] HermannHEMATOLOGY 2016-07-28 10:35:000.4[facility] SajkxgxDKLEIYNPWW0274-85-51 10:35:0029.3[facility] IkqmaoaBSFFZRTXEP4532-58-29 10:35:009.2[facility] HzvhjsoONOMCZVVEM9093-00-81 10:35:003.54[facility] GfpsxwgXJDFMCHNGI5349-94-95 10:35:005.3[facility] XFLHGZBWLR4814-35-65 10:35:0087[facility] YggdkwwPQCXVTYIZU2685-04-12 10:35:0031.4 [facility] BlmeiezJJEJEUULRI6097-79-85 10:35:0017.9[facility] HermannHEMATOLOGY 2016-07-28 10:35:0010.9[facility] CkinlhgLPTQNMNAVF2287-98-06 10:35:00 Test Item Value Reference Range Interpretation Comments MCH (test code = MCH) 26.0 pg 27.0-31.0 [facility] FpmkvaoDLJJRAQQPZ8097-04-56 10:35:0082.8[facility] HermannIMMUNOLOGY 2016-07-28 10:35:00Negative *NA*(07/28/16 4:35 AM)[facility]annHEMATOLOGY 2016-07-28 10:35:001.7[facility] HaldnjsWUOYQAEALZ5095-11-53 10:35:002.7[facility] PszurzxWIEBSAWTYA9755-96-74 10:35:000.1[facility] MwlxmzvAAJIFRGPRY4540-51-31 10:35:000.7[facility] WvxftijOMHPQVCYUX0200-67-03 10:35:0051.3[facility] BFTVNCTRSW1806-76-10 10:35:0031.6[facility] XsjazmjISFDOOWUYH8198-06-77 10:35:00 14.1[facility] EnjbjfbUECKIBFOKU3369-90-09 10:35:002.6[facility] HermannHEMATOLOGY 2016-07-28 10:35:000.4[facility] YekydjvKLTFQYTMLK6751-46-87 10:35:0029.3[facility] QzhodonGBLJAZMMTQ9591-29-75 10:35:009.2[facility] VcqktryFOMQQSUJUX8024-84-81 10:35:003.54[facility] LmoltmyZQUQDHOCSN7257-93-52 10:35:005.3[facility] KSEJXAVAXW1059-14-58 10:35:0087[facility] KxaogceVURAVMLOZX0197-78-60 10:35:0031.4 [facility] EbuybtoEMGUDXVGLA2395-55-64 10:35:0017.9[facility] HermannHEMATOLOGY 2016-07-28 10:35:0010.9[facility] GocmwgtNNTROKHVBI9518-94-83 10:35:00 Test Item Value Reference Range Interpretation Comments MCH (test code = MCH) 26.0 pg 27.0-31.0 [facility] AvohgooVNFEDCVIGV0354-68-46 10:35:0082.8[facility] HermannIMMUNOLOGY 2016-07-28 10:35:00Negative *NA*(07/28/16 4:35 AM)[facility]annHEMATOLOGY 2016-07-28 10:35:001.7[facility] CewzraeEBDXSCQIEA1277-28-03 10:35:002.7[facility] KvwcxdpCRHSUVNMWX1998-25-71 10:35:000.1[facility] MemisplSKIDMERKCZ4828-64-71 10:35:000.7[facility] BuziidfCDRTYCTWMT7722-40-81 10:35:0051.3[facility] QJUBBMTZYK3607-62-39 10:35:0031.6[facility] McjerccETOCGCRVJU6158-39-60 10:35:00 14.1[facility] FgjwinxMNRLBKUKKE9365-96-48 10:35:002.6[facility] HermannHEMATOLOGY 2016-07-28 10:35:000.4[facility] OsekhujRZKXCYFHYP2512-25-12 10:35:0029.3[facility] RvkdmukLSBCJXJFLU8863-18-25 10:35:009.2[facility] NmejjjlIGRDHMIMLQ6557-81-21 10:35:003.54[facility] TcsysuaFLONPJDOOV9224-15-53 10:35:005.3[facility] QFPOMZCXNO2358-47-48 10:35:0087[facility] StshfoaCMIKNSNWZY5176-79-00 10:35:0031.4 [facility] HwxjwkpXHSJVVKBZY8960-78-69 10:35:0017.9[facility] HermannHEMATOLOGY 2016-07-28 10:35:0010.9[facility] JtnnlfySCEWPCVGXZ4398-90-88 10:35:00 Test Item Value Reference Range Interpretation Comments MCH (test code = MCH) 26.0 pg 27.0-31.0 [facility] NvdsoyiKSFKIVVEGT3282-87-64 10:35:0082.8[facility] HermannIMMUNOLOGY 2016-07-28 10:35:00Negative *NA*(07/28/16 4:35 AM)[facility]annHEMATOLOGY 2016-07-28 10:35:001.7[facility] EftmkllBEPTILZLYZ5134-15-40 10:35:002.7[facility] WvsqsisFPAIVGMCFD8784-01-14 10:35:000.1[facility] VjczqszNNFHYEICZW8496-88-91 10:35:000.7[facility] CsumcifYNQBWLVLKY2493-12-26 10:35:0051.3[facility] FYARFGXWYE1252-67-15 10:35:0031.6[facility] CbvjadtLAETRGYCDN4696-16-77 10:35:00 14.1[facility] DayikuqDJGMHWIZCR1024-76-88 10:35:002.6[facility] HermannHEMATOLOGY 2016-07-28 10:35:000.4[facility] VrscvwgUEYJTKBYAB5065-42-78 10:35:0029.3[facility] QlqcygtKDWQDPRUQB5743-04-18 10:35:009.2[facility] VhhmsweTIJIBDBEUK0594-96-41 10:35:003.54[facility] JzqonboDYJPULLFAX8083-88-95 10:35:005.3[facility] RMQOBNXIGP3580-23-83 10:35:0087[facility] TqinvmtJSCNDFMCRB0743-26-93 10:35:0031.4 [facility] JdusoylRHXMNKIFIT7460-40-59 10:35:0017.9[facility] HermannHEMATOLOGY 2016-07-28 10:35:0010.9[facility] NzfuhkmXROTQANOXW5234-04-07 10:35:00 Test Item Value Reference Range Interpretation Comments MCH (test code = MCH) 26.0 pg 27.0-31.0 [facility] ChxasbwMLRCRSTEOM8585-54-09 10:35:0082.8[facility] HermannIMMUNOLOGY 2016-07-28 10:35:00Negative *NA*(07/28/16 4:35 AM)[facility] HermannCARDIAC ENZYMES 2016-07-27 10:22:29606Nzehupcc HermannCHEM NMCPF9851-12-42 10:22:007.8[facility] HermannCHEM LOCIG3223-89-50 10:22:0021[facility] HermannCHEM CPZEU3003-89-18 10:22:42199Tzmlseax HermannCHEM GWBGB5142-28-53 10:22:003.8[facility] HermannCHEM USTGR1112-30-72 10:22:98824Tjoccyyv HermannCHEM RQQHW4760-15-97 10:22:000.4 [facility]annCHEM QSERN0875-27-48 10:22:0074[facility] HermannCHEM PANEL 2016-07-27 10:22:0019[facility]annCHEM JNLMW4333-60-67 10:22:005.2[facility] HermannCHEM WBLSS1245-17-06 10:22:47523Yaffqjos HermannCHEM OYEAC3231-01-78 10:22:06193Sblqhsek HermannCHEM BWUUP2872-56-49 10:22:001.8[facility] HermannCHEM QHADR6969-36-29 10:22:0054[facility] HermannCHEM QHUWK2903-32-62 10:22:17629 [facility]annCHEM VZSMW2200-31-11 10:22:003.11[facility] HermannCHEM PANEL 2016-07-27 10:22:0017[facility] HermannCHEM ITRPN2801-38-79 10:22:0016.8[facility] HermannCHEM QPGTP1388-98-89 10:22:003.4[facility] HermannCHEM RQDZW7815-81-40 10:22:000.5[facility] HermannCHEM LWJEY2764-03-41 10:22:002.0[facility] HermannCHEM QUNXE9003-31-32 10:22:003.7[facility] DmtvtpnATVPFYZEGQ9595-72-97 10:22:0017.7 [facility] MmcnlpuULQRLJCYDK3136-19-67 10:22:0032.9[facility] HermannHEMATOLOGY 2016-07-27 10:22:0025.4[facility] DupyqynQQUZJIOPWB0835-00-07 10:22:00 Test Item Value Reference Range Interpretation Comments MCH (test code = MCH) 26.4 pg 27.0-31.0 [facility] IibqrhfWJHNHSBKDV6275-77-42 10:22:0080.3[facility] HermannHEMATOLOGY 2016-07-27 10:22:0011.4[facility] VhjxztvKPLRGDXGUT9458-94-07 10:22:0074[facility] DmxuoneBUXSUNMXHB6862-48-44 10:22:003.16[facility] HagypmiTDONTPLGMM3965-93-00 10:22:005.3[facility] GzcwjffDPKZWTDXUW4108-96-29 10:22:008.4[facility] EQVRNXGWFS8759-00-69 10:22:0014.5[facility] KlxofapLXPKNUEQFO7572-25-20 10:22:00 29.8[facility] QuclmilIINWQOMZYU1016-70-40 10:22:000.1[facility] HermannHEMATOLOGY 2016-07-27 10:22:000.8[facility] OcbgmriICPIKYIFXW1144-79-66 10:22:002.9[facility] QrjlxciOFMORGZKFE3129-22-38 10:22:001.6[facility] TexzvgfWLIFZMALPI1063-63-54 10:22:000.4[facility] KraidgqRHPNXPLKRQ8174-23-69 10:22:001.2[facility] NLBVYDUGHL3310-40-72 10:22:0054.1[facility] HermannSPECIAL NYGASTGIQ2457-35-90 10:22:008.9[facility] HermannCARDIAC PRAFCKA9201-02-61 10:22:39199Rgxrgxfi [place] CHEM ORRRH6859-47-22 10:22:007.8[facility] HermannCHEM QEYWC3669-70-86 10:22:0021 [facility]annCHEM IGVUD4818-29-00 10:22:77318Zztibtce HermannCHEM PANEL 2016-07-27 10:22:003.8[facility]annCHEM YGQQV2454-53-22 10:22:53458Uwfncskx HermannCHEM UJYLB2661-99-71 10:22:000.4[facility]annCHEM FODLI7542-28-69 10:22:0074[facility]annCHEM YIXXG9979-56-09 10:22:0019[facility]annCHEM EZZCZ2099-79-99 10:22:005.2[facility]annCHEM BBBYY8913-28-20 10:22:66764 [facility]annCHEM BKIEP9027-57-17 10:22:74814Efmleqqo HermannCHEM PANEL 2016-07-27 10:22:001.8[facility]annCHEM HZDWJ5009-43-35 10:22:0054[facility]annCHEM EXLFA2486-33-59 10:22:50781Lqtpejli HermannCHEM IIJRV8034-72-05 10:22:003.11[facility]annCHEM HFLJQ3377-53-48 10:22:0017[facility]annCHEM JZISH5089-22-80 10:22:0016.8[facility]annCHEM XCVYR3732-71-84 10:22:003.4 [facility]annCHEM LVOZC1045-45-53 10:22:000.5[facility]annCHEM PANEL 2016-07-27 10:22:002.0[facility]annCHEM IHMKW4466-91-74 10:22:003.7[facility] NnzvmqfTBGGBHXLAF6732-74-47 10:22:0017.7[facility] VrmsrftYNELNONZJK7268-64-22 10:22:0032.9[facility] XtnphjzAKPUGQCPIU6240-49-52 10:22:0025.4[facility] EVZGBZDVUI7967-18-77 10:22:00 Test Item Value Reference Range Interpretation Comments MCH (test code = MCH) 26.4 pg 27.0-31.0 [facility] WvdgscxKZTMLWODLD1594-41-35 10:22:0080.3[facility] HermannHEMATOLOGY 2016-07-27 10:22:0011.4[facility] SsmcovzDXNUEHRPFH4081-11-37 10:22:0074[facility] GdwvadeVOOVCQTJMP1406-51-31 10:22:003.16[facility] AdyhlvzRYMVUXHPEC8945-23-66 10:22:005.3[facility] XnfnhbmVQQDLACACA7884-08-39 10:22:008.4[facility] IWIMNUXFFZ7117-94-47 10:22:0014.5[facility] FqugrjdWPEJFOHTDT2454-47-31 10:22:00 29.8[facility] BrlihobPGZMAUEFTX4074-22-27 10:22:000.1[facility] HermannHEMATOLOGY 2016-07-27 10:22:000.8[facility] KddnwmiQYIUFUXSZG5345-68-41 10:22:002.9[facility] OexljhtRATQUOTIPN1730-60-41 10:22:001.6[facility] WbotblmGIFMWCIGQE2005-78-24 10:22:000.4[facility] YlwauteMETXIAVRQA6760-07-31 10:22:001.2[facility] DPBINZDOQU9243-34-30 10:22:0054.1[facility] HermannSPECIAL AZCPINWOR5957-38-13 10:22:008.9[facility] HermannCARDIAC SZZBVLR9969-79-04 10:22:05551Wrriacad Vin CHEM DQDNO7914-72-78 10:22:007.8[facility] HermannCHEM IUCMP8203-99-45 10:22:0021 [facility]annCHEM VEQYH2153-99-89 10:22:07065Llmvercp HermannCHEM PANEL 2016-07-27 10:22:003.8[facility] HermannCHEM UTOOF5978-48-46 10:22:71651Yapamesh HermannCHEM ZVRDK6803-03-88 10:22:000.4[facility] HermannCHEM KUKZW9911-03-90 10:22:0074[facility]annCHEM ECMKV0840-87-94 10:22:0019[facility]annCHEM XXJMV7567-77-15 10:22:005.2[facility] HermannCHEM WXFEN0662-82-66 10:22:37755 [facility]annCHEM WYMLW1304-84-56 10:22:17331Tvhurqnq HermannCHEM PANEL 2016-07-27 10:22:001.8[facility] HermannCHEM MLBGP7978-12-91 10:22:0054[facility]annCHEM UXLAC6138-69-89 10:22:28164Kbshljbg HermannCHEM QCMBN4500-02-51 10:22:003.11[facility] HermannCHEM IUBCI2010-92-63 10:22:0017[facility]annCHEM JWUVP6797-93-33 10:22:0016.8[facility] HermannCHEM CGUJL2655-63-34 10:22:003.4 [facility]annCHEM NFIGR2619-03-82 10:22:000.5[facility] HermannCHEM PANEL 2016-07-27 10:22:002.0[facility] HermannCHEM ZJOPW8125-40-30 10:22:003.7[facility] QkdzgahUHKPFWNZNU0603-45-06 10:22:0017.7[facility] FbhttwcIQDKMANNPM0232-55-90 10:22:0032.9[facility] WfodjwvGPXYWKBKSM9160-01-46 10:22:0025.4[facility] ADUEXPVKMD4326-33-85 10:22:00 Test Item Value Reference Range Interpretation Comments MCH (test code = MCH) 26.4 pg 27.0-31.0 [facility] PncpcmeYXQHQEHAPJ3619-27-93 10:22:0080.3[facility] HermannHEMATOLOGY 2016-07-27 10:22:0011.4[facility] WusxouvWIPHUJOUGO5415-52-18 10:22:0074[facility] JahaclbNRQXFNLWXK6238-02-72 10:22:003.16[facility] VopdgvqVKFWDIJWIT8462-27-85 10:22:005.3[facility] OlylvoqOOGAHMNAVG1654-01-55 10:22:008.4[facility] HFNQXLUGNB3015-84-08 10:22:0014.5[facility] KnbatdcTEYAGYYWWL4868-24-93 10:22:00 29.8[facility] JmozjggLVEJFJHPJZ2424-75-81 10:22:000.1[facility] HermannHEMATOLOGY 2016-07-27 10:22:000.8[facility] AscfkijQNSVAEUVNE4475-84-76 10:22:002.9[facility] GtswdkdZVKHNMEXCQ9013-86-95 10:22:001.6[facility] BzjuaaiIPJCILCIRR2623-17-47 10:22:000.4[facility] QdsmnnhPHDMHIFHNJ1135-36-58 10:22:001.2[facility] AWVLPMUEQO9506-04-52 10:22:0054.1[facility] HermannSPECIAL TKJCATQAJ7552-04-74 10:22:008.9[facility] HermannCARDIAC HMMATSY4763-28-82 10:22:78616Ywwjlfoo Vin CHEM BWSZO5612-31-30 10:22:007.8[facility] HermannCHEM ESIRT4317-72-78 10:22:0021 [facility]annCHEM RYXSC5222-21-11 10:22:78572Xstnemgo HermannCHEM PANEL 2016-07-27 10:22:003.8[facility] HermannCHEM QVTNS9183-18-88 10:22:13310Vdnqglbk HermannCHEM CEVVF6367-91-30 10:22:000.4[facility] HermannCHEM FUMKG8294-14-89 10:22:0074[facility] HermannCHEM DXHQF0699-48-54 10:22:0019[facility]annCHEM FHOBC7590-79-21 10:22:005.2[facility] HermannCHEM JTGMZ0600-00-73 10:22:00418 [facility]annCHEM RXAWK5717-17-21 10:22:32165Vhufxtli HermannCHEM PANEL 2016-07-27 10:22:001.8[facility] HermannCHEM BQZMA7797-13-93 10:22:0054[facility] HermannCHEM VWGVD0384-76-16 10:22:09229Wpmjdxhh HermannCHEM OLLKN0349-90-80 10:22:003.11[facility] HermannCHEM YDFBH5979-23-89 10:22:0017[facility] HermannCHEM GMNBJ4944-55-88 10:22:0016.8[facility] HermannCHEM PVTRR8024-49-59 10:22:003.4 [facility]annCHEM ZEAHF3224-64-68 10:22:000.5[facility] HermannCHEM PANEL 2016-07-27 10:22:002.0[facility] HermannCHEM TUTYR9796-75-40 10:22:003.7[facility] QfkcksnRVIFGEZWHK1924-89-48 10:22:0017.7[facility] ZghjxhiCWNJUTOLWS6354-56-15 10:22:0032.9[facility] BqneccvRLMNHFLHXN4242-19-24 10:22:0025.4[facility] LSVIYJLPPZ1724-19-09 10:22:00 Test Item Value Reference Range Interpretation Comments MCH (test code = MCH) 26.4 pg 27.0-31.0 [facility] OhxocaiXENFLJARPB9369-83-66 10:22:0080.3[facility] HermannHEMATOLOGY 2016-07-27 10:22:0011.4[facility] UostfzcZOMVWGBFSL6170-62-98 10:22:0074[facility] BewwnssAXMMBRCXWO6861-67-86 10:22:003.16[facility] ZgtapplCVTHMGTZWM2271-46-29 10:22:005.3[facility] IhxcfbsGYGZZQFSPB0928-36-33 10:22:008.4[facility] NLRCBSYZLZ9703-24-60 10:22:0014.5[facility] MxlxzcrIMHYTVXARQ2720-35-16 10:22:00 29.8[facility] TvtgbykYNXCHWPTUW3563-68-73 10:22:000.1[facility] HermannHEMATOLOGY 2016-07-27 10:22:000.8[facility] BmzjhssTOLBABESLV9124-91-98 10:22:002.9[facility] ZpznhdaVVPBYVAHDM8420-27-22 10:22:001.6[facility] NewzlobNTGWUPIRWW9699-31-03 10:22:000.4[facility] FakynnfBZXVTULCJS7819-86-79 10:22:001.2[facility] Vni IFKEOHUXUW4346-98-18 10:22:0054.1[facility] HermannSPECIAL GXLRGZVXJ0734-73-23 10:22:008.9[facility] HermannCARDIAC ECMPJYO4341-70-48 10:22:08521Fdibhamr [place] CHEM SZKYG3722-44-08 10:22:007.8[facility] HermannCHEM YJQIB7766-42-15 10:22:0021 [facility]annCHEM QPQOS4187-49-29 10:22:52220Ywyqnape HermannCHEM PANEL 2016-07-27 10:22:003.8[facility] HermannCHEM TOSRL7091-49-54 10:22:25545Jocnbmqg HermannCHEM PTOSQ9638-23-90 10:22:000.4[facility] HermannCHEM ARPMD8181-51-37 10:22:0074[facility]annCHEM NKAAD1179-84-18 10:22:0019[facility]annCHEM EXVPD5404-25-86 10:22:005.2[facility] HermannCHEM WSZDF2821-45-49 10:22:78148 [facility]annCHEM SJGNP3348-15-81 10:22:82426Mpjussug HermannCHEM PANEL 2016-07-27 10:22:001.8[facility] HermannCHEM JYJTO0810-00-05 10:22:0054[facility]annCHEM MGPFQ3151-21-52 10:22:83050Udqddvmy HermannCHEM TKVXL2178-54-17 10:22:003.11[facility]annCHEM RBYZA2277-35-22 10:22:0017[facility]annCHEM MACLN8262-79-42 10:22:0016.8[facility] HermannCHEM CQSTY9529-64-75 10:22:003.4 [facility]annCHEM RFSBJ4029-82-08 10:22:000.5[facility]annCHEM PANEL 2016-07-27 10:22:002.0[facility]annCHEM NXJCE5057-22-50 10:22:003.7[facility] LamfkibFXQVHFEBZT7586-78-55 10:22:0017.7[facility] OljahodKDEFWPUNVU7836-19-19 10:22:0032.9[facility] LttirauUJOHWFEZJO0449-09-93 10:22:0025.4[facility] OKJMRBORGU1599-99-27 10:22:00 Test Item Value Reference Range Interpretation Comments MCH (test code = MCH) 26.4 pg 27.0-31.0 [facility] HzmhdauPZTYNVYIOA8532-93-15 10:22:0080.3[facility] HermannHEMATOLOGY 2016-07-27 10:22:0011.4[facility] AuyvmvvOKREISBHUJ5027-27-67 10:22:0074[facility] HkcofptHBRWBRMKPT2891-50-33 10:22:003.16[facility] AklocavRYTSSQYCCR0685-14-11 10:22:005.3[facility] SkezylkQOWMFHZSNL9613-29-83 10:22:008.4[facility] WFXYXLPVIQ4112-89-52 10:22:0014.5[facility] QfqribxJGYILEIGFG5858-54-08 10:22:00 29.8[facility] DzuyazxESWWRIXZZP7867-94-68 10:22:000.1[facility] HermannHEMATOLOGY 2016-07-27 10:22:000.8[facility] MrnpmpeUREKZVYXKK9803-83-56 10:22:002.9[facility] ThfsaetXLSMHJIWEI6212-77-30 10:22:001.6[facility] JvwrjlvOUQNRWLKTA8053-21-06 10:22:000.4[facility] TzmpbxaEJVHPIPAXT7838-28-84 10:22:001.2[facility] ZDSHDSXANS9672-44-59 10:22:0054.1[facility] HermannSPECIAL ZEARRGFQO6024-01-58 10:22:008.9[facility] HermannCARDIAC IGDXCQL5985-22-35 10:22:03837Ikwygcym [place] CHEM CEQXJ5451-83-78 10:22:007.8[facility] HermannCHEM SYRIB6205-93-21 10:22:0021 [facility]annCHEM DXGFZ1362-69-30 10:22:31246Gftczzyb HermannCHEM PANEL 2016-07-27 10:22:003.8[facility] HermannCHEM FGKVU8016-67-27 10:22:88309Atfzqimx HermannCHEM MAYIH3245-99-43 10:22:000.4[facility] HermannCHEM BSHJT4796-89-13 10:22:0074[facility] HermannCHEM TLVYZ5437-55-36 10:22:0019[facility]annCHEM UIYBT9397-12-17 10:22:005.2[facility] HermannCHEM JZLJG1436-71-94 10:22:58560 [facility]annCHEM DNOYU8616-53-25 10:22:20996Mwwoiaem HermannCHEM PANEL 2016-07-27 10:22:001.8[facility] HermannCHEM WMBTF2489-62-30 10:22:0054[facility]annCHEM LRPDZ5749-27-15 10:22:15049Zyzlkexu HermannCHEM XSEDX7442-60-60 10:22:003.11[facility] HermannCHEM LHHXK5491-68-69 10:22:0017[facility]annCHEM MHVUC4532-69-15 10:22:0016.8[facility] HermannCHEM MVBWR0507-52-33 10:22:003.4 [facility]annCHEM ERRWY4036-75-39 10:22:000.5[facility] HermannCHEM PANEL 2016-07-27 10:22:002.0[facility] HermannCHEM QKPVA7401-14-20 10:22:003.7[facility] ZhibgweOBOPWFIPFB5849-90-26 10:22:0017.7[facility] FnscfufAWOJPZOJHX3153-47-90 10:22:0032.9[facility] YwjkicyXZFAZHCYDT9884-08-42 10:22:0025.4[facility] ZNZQKOAMHY2327-27-14 10:22:00 Test Item Value Reference Range Interpretation Comments MCH (test code = MCH) 26.4 pg 27.0-31.0 [facility] WqmhpvgFAGAHESCRJ0683-31-89 10:22:0080.3[facility] HermannHEMATOLOGY 2016-07-27 10:22:0011.4[facility] AyethywCBNCPLPUMP6696-80-87 10:22:0074[facility] BuknurjRHQFPNZHWA6942-50-54 10:22:003.16[facility] GtojzavUCMBDBHJMC0554-10-07 10:22:005.3[facility] IbulunxVULIWGEZSU2623-26-57 10:22:008.4[facility] LDVNZLCHGS5626-70-63 10:22:0014.5[facility] IytxcrsLMBRKCNECF4422-78-50 10:22:00 29.8[facility] VfruftgNCPKNYFKWP1698-18-97 10:22:000.1[facility] HermannHEMATOLOGY 2016-07-27 10:22:000.8[facility] FfmfmdzNFBNHEVMFZ8843-59-63 10:22:002.9[facility] QfszlibQDPLGDFHSJ2113-06-71 10:22:001.6[facility] SdpvsxiDQJGQXULXL1616-65-68 10:22:000.4[facility] UnqyxjuOOTSHPMZPS7555-76-94 10:22:001.2[facility] KKKZAITVFW4087-24-15 10:22:0054.1[facility] HermannSPECIAL MJYYUPJRN4497-44-51 10:22:008.9[facility] HermannCARDIAC BXTGPYP5383-63-38 17:40:21226Koeixaqa [place] YCGKNJMVFH2748-67-74 17:40:00Positive *ABN*(07/26/16 11:40 AM)[facility] MGEKMZCEHO0621-86-96 17:40:00<0.2[facility] NxwahfmDRUDSQSVKX5434-99-98 17:40:00<0.2[facility] HlsbpakVFRRXBHCLQ4557-81-88 17:40:00<0.2[facility] QnuoxpfKGHDUOTZSH1608-34-75 17:40:00<0.2[facility] MrpugscGDDDEOPLMR1921-14-80 17:40:00Negative (07/26/16 11:40 AM)[facility] XtjxmcbGCGAHDXBZE4271-89-97 17:40:00 1:40 *ABN*(07/26/16 11:40 AM)[facility] HermannURINE VDBM3554-57-82 17:40:0021 [facility]annCARDIAC DNMQEAS5072-09-38 17:40:16532Btstarns HermannIMMUNOLOGY 2016-07-26 17:40:00Positive *ABN*(07/26/16 11:40 AM)[facility] HermannIMMUNOLOGY 2016-07-26 17:40:00<0.2[facility] EabcqeuJILXBUWXAA2355-80-95 17:40:00<0.2 [facility] ManapmhJRIELNIIDQ0101-63-92 17:40:00<0.2[facility] HermannIMMUNOLOGY 2016-07-26 17:40:00<0.2[facility] GtzetjdOVXCZRTQYR3064-44-29 17:40:00Negative (07/26/16 11:40 AM)[facility] UrqjrygBQHZUGGKXM8776-54-82 17:40:001:40 *ABN*(07/26/16 11:40 AM)[facility] HermannURINE OGBJ4040-06-83 17:40:0021[facility] HermannCARDIAC VTVDSOW3914-51-99 17:40:66465Xghzyjbd VhdwjqbEQWVTVHAQE0328-94-63 17:40:00 Positive *ABN*(07/26/16 11:40 AM)[facility] XnxfnetCRINYAJSKZ6009-28-14 17:40:00 <0.2[facility] HtwhdncZDZNDDHQKD1332-53-86 17:40:00<0.2[facility] DHGEUDTBIC7054-38-11 17:40:00<0.2[facility] PqupcktGEFLBNMVGY7534-05-77 17:40:00<0.2[facility] BhidfaiILOETWJAMW3502-88-70 17:40:00Negative (07/26/16 11:40 AM)[facility] XphbrufHRLMFJFNCB6306-46-09 17:40:001:40 *ABN*(07/26/16 11:40 AM)[facility] NCBY5557-79-43 17:40:0021[facility]CARDIAC ZJAQCLW6809-29-90 17:40:22008Ukitpcde FzrwqqmQHEGUPKMDW4448-12-79 17:40:00 Positive *ABN*(07/26/16 11:40 AM)[facility] AkcafahSHQUCBYFTF7634-72-52 17:40:00 <0.2[facility] PhngqisLYUAIBRAVN2055-85-12 17:40:00<0.2[facility] RGGKOGWKEF7609-82-85 17:40:00<0.2[facility] KiuhsciXGXJYIVDFC3936-03-50 17:40:00<0.2[facility] JgnyvedXUOGFFYETF0343-22-76 17:40:00Negative (07/26/16 11:40 AM)[facility] OnyyfsuZGGTYPNSWG4531-67-58 17:40:001:40 *ABN*(07/26/16 11:40 AM)[facility] RAZI1799-06-45 17:40:0021[facility]annCARD[facility]AC XIILZCU8421-03-03 17:40:92131Mmcklecl TdmfahsRUHIQMDLDR0792-39-99 17:40:00 Positive *ABN*(07/26/16 11:40 AM)[facility] RmqlpldONMYQSNDTB4213-61-84 17:40:00 <0.2[facility] GtfzqxqHEJMXGCRID2538-80-94 17:40:00<0.2[facility] HWTJKVDECE3309-14-15 17:40:00<0.2[facility] GzmwwdmIHWJOFIAWW4660-11-11 17:40:00<0.2[facility] YfzsajaTZCYPMYKDS1246-26-75 17:40:00Negative (07/26/16 11:40 AM)[facility] YobmqolWFDLEHAXYQ9805-51-06 17:40:001:40 *ABN*(07/26/16 11:40 AM)[facility] AJCM0932-81-86 17:40:0021[facility]annCARDIAC VGHVMYP4949-55-95 17:40:13670Enenkioj AhzgeuyCQBNLNCWEW7867-69-61 17:40:00 Positive *ABN*(07/26/16 11:40 AM)[facility] GuraeueYJEAXHTNJL0339-47-42 17:40:00 <0.2[facility] YgacurjVDVBKUQXQF5757-19-90 17:40:00<0.2[facility] IQFHKKCFLM9328-05-47 17:40:00<0.2[facility] RxzajisUMZKHACSOH3465-47-83 17:40:00<0.2[facility] WrwksaaKHNUUMMSYW9506-40-98 17:40:00Negative (07/26/16 11:40 AM)[facility] EskstgdPBFYMXYNKJ8028-97-29 17:40:001:40 *ABN*(07/26/16 11:40 AM)[facility] EGTH0461-87-93 17:40:0021[facility]annHEMATOLOGY 2016-07-26 14:00:001.11[facility] EtxslixDMSPBJYHJX3212-87-67 14:00:00 Test Item Value Reference Range Interpretation Comments PT (test code = PT) 14.5 s 12.0-14.7 [facility] EldjdlxGKGABCJDXL4325-37-56 14:00:00Negative *NA*(07/26/16 8:00 AM) [facility] XvckbuxPYKYKSWJKB1996-46-84 14:00:00Negative *NA*(07/26/16 8:00 AM) [facility] VlohchkLLJLGLKQPC8649-76-71 14:00:00Negative *NA*(07/26/16 8:00 AM) [facility] ZnmfgyiDTGUZCDCMZ5423-92-13 14:00:00Negative *NA*(07/26/16 8:00 AM) [facility] FdlwktgSXUZANMPOZ7777-78-21 14:00:001.11[facility]annHEMATOLOGY 2016-07-26 14:00:00 Test Item Value Reference Range Interpretation Comments PT (test code = PT) 14.5 s 12.0-14.7 [facility] PcohksgXPXEPOREVM5756-46-57 14:00:00Negative *NA*(07/26/16 8:00 AM) [facility] EdqpyikISSPGQGTVV2417-43-44 14:00:00Negative *NA*(07/26/16 8:00 AM) [facility] TedrkkyJLOPZZXXBW4872-07-71 14:00:00Negative *NA*(07/26/16 8:00 AM) [facility] MrjkdfcVIWSLVPQRL5779-26-70 14:00:00Negative *NA*(07/26/16 8:00 AM) [facility] DudovnbCFKDXHTQZO2559-44-16 14:00:[address] [place], [place] [address]annHEMATOLOGY 2016-07-26 14:00:00 Test Item Value Reference Range Interpretation Comments PT (test code = PT) 14.5 s 12.0-14.7 [facility] VbksqhwLWWFPGOZCH1714-10-15 14:00:00Negative *NA*(07/26/16 8:00 AM) [facility]geFPPJAAKKYT2394-42-68 14:00:00Negative *NA*(07/26/16 8:00 AM) [facility] BdcilkjASLKPZZOXY2420-31-00 14:00:00Negative *NA*(07/26/16 8:00 AM) [facility]nePabfnkmONQIVUFLJR8337-86-54 14:00:00Negative *NA*(07/26/16 8:00 AM) [facility]neXvbxcanKMPSKAXOGD1522-90-27 14:00:001[address] [place], [place] [address]annHEMATOLOGY 2016-07-26 14:00:00 Test Item Value Reference Range Interpretation Comments PT (test code = PT) 14.5 s 12.0-14.7 [facility] QdtrjbfWJIGWWJLCQ2612-58-79 14:00:00Negative *NA*(07/26/16 8:00 AM) [facility]neBwooqvbAIWNRZFVIF6013-66-30 14:00:00Negative *NA*(07/26/16 8:00 AM) [facility]neTyarwsvZYUJSJPCBM8609-46-87 14:00:00Negative *NA*(07/26/16 8:00 AM) [facility]neGqbqbghCRDNYWEDME5694-01-57 14:00:00Negative *NA*(07/26/16 8:00 AM) [facility]neQazsgguSCBTGKULKD4015-17-51 14:00:001[address] [place], [place] [address]annHEMATOLOGY 2016-07-26 14:00:00 Test Item Value Reference Range Interpretation Comments PT (test code = PT) 14.5 s 12.0-14.7 [facility] GslttveSXEUAOHNOL5587-74-63 14:00:00Negative *NA*(07/26/16 8:00 AM) [facility]neMvrjzugESJISHJCEG1068-51-17 14:00:00Negative *NA*(07/26/16 8:00 AM) [facility] GrofvfyECHKSFVBBI7816-14-70 14:00:00Negative *NA*(07/26/16 8:00 AM) [facility] HnmsqtgZNYQOLNPTH0175-28-46 14:00:00Negative *NA*(07/26/16 8:00 AM) [facility] NomvbmlDWRYFCLOTF5810-86-30 14:00:001.11[facility]annHEMATOLOGY 2016-07-26 14:00:00 Test Item Value Reference Range Interpretation Comments PT (test code = PT) 14.5 s 12.0-14.7 [facility] PjkfrdzKMKCSFPQEP7233-76-36 14:00:00Negative *NA*(07/26/16 8:00 AM) [facility] LorultsNMWDWWQSDU6777-47-31 14:00:00Negative *NA*(07/26/16 8:00 AM) [facility] BcdsileSJSJFQXGBE0452-47-38 14:00:00Negative *NA*(07/26/16 8:00 AM) [facility] WbnqnbgGRGFBOKTSW8655-59-96 14:00:00Negative *NA*(07/26/16 8:00 AM) [facility]annCHEM GKKQO2563-99-22 10:42:0017[facility]annCHEM PANEL 2016-07-26 10:42:887848Winwlaxz HermannCHEM NPFHM8596-93-85 10:42:000.5[facility]annCHEM TNKCM8305-21-31 10:42:000.3[facility]annCHEM OFIHQ9652-63-29 10:42:0079[facility]annCHEM YWHJR4963-06-19 10:42:02632Dkgcevva HermannCHEM HZHDJ9089-63-88 10:42:005.5[facility]annCHEM AOUQE5941-90-38 10:42:003.7 [facility]annCHEM GDOWH0769-59-95 10:42:001.8[facility]annCHEM PANEL 2016-07-26 10:42:002.1[facility] VnndzryRCARZCWUPN1916-54-00 10:42:00Present *ABN*(07/26/16 4:42 AM)[facility] KemobgzWVYRVIZFKN7420-89-81 10:42:001+ *ABN*(07/26/16 4:42 AM)[facility] QxtzxzpFKFKFESJJL7290-21-05 10:42:000.1[facility] QoixvlpFMDMHVCGII3367-78-69 10:42:00Moderate *ABN*(07/26/16 4:42 AM)[facility] TudnjggUUXWUCZWCS4259-34-65 10:42:0042[facility]annCHEM AVJJS8922-48-67 10:42:0017[facility]annCHEM QNLYH6995-39-04 10:42:946427Mblpmycc HermannCHEM WDFRI0251-73-23 10:42:000.5[facility]annCHEM QOPVB6203-49-48 10:42:000.3 [facility]annCHEM EOHZG9911-83-72 10:42:0079[facility]annCHEM PANEL 2016-07-26 10:42:86652Wjqjbkzh HermannCHEM IAMFU6677-76-24 10:42:005.5[facility]annCHEM MJWGI8011-70-05 10:42:003.7[facility]annCHEM RJUWW5336-89-92 10:42:001.8[facility]annCHEM IMEQO9328-81-59 10:42:002.1[facility] VUMWMAUGSW9324-83-32 10:42:00Present *ABN*(07/26/16 4:42 AM)[facility] OHQUMEVYJY6595-00-20 10:42:001+ *ABN*(07/26/16 4:42 AM)[facility]annHEMATOLOGY 2016-07-26 10:42:000.1[facility] VhfqzkeJIHTWIETHS6742-20-58 10:42:00Moderate *ABN*(07/26/16 4:42 AM)[facility] QzdaysmVZVXUPNXCE5898-31-91 10:42:0042[facility]annCHEM RSYMZ7138-76-50 10:42:0017[facility]annCHEM CEJOW8537-74-11 10:42:583048Ixjoqbwm HermannCHEM WHTIL9811-60-24 10:42:000.5[facility]annCHEM IRXPZ4864-72-36 10:42:000.3[facility]annCHEM TMTQM3031-20-10 10:42:0079 [facility]annCHEM ZLBOP1542-54-25 10:42:23878Rgibgpxz HermannCHEM PANEL 2016-07-26 10:42:005.5[facility]annCHEM QHTFO0748-03-48 10:42:003.7[facility]annCHEM QTRFN8221-98-20 10:42:001.8[facility]annCHEM YBLVN4056-67-92 10:42:002.1[facility] MvmtsxjJNHWWDKMEO4374-62-65 10:42:00Present *ABN*(07/26/16 4:42 AM)[facility] UqpxabrCWUNXBDPJA6511-95-30 10:42:001+ *ABN*(07/26/16 4:42 AM) [facility] NsnqllyICRVQXLCMB3240-12-26 10:42:000.1[facility]annHEMATOLOGY 2016-07-26 10:42:00Moderate *ABN*(07/26/16 4:42 AM)[facility] HermannIMMUNOLOGY 2016-07-26 10:42:0042[facility]annCHEM LWETM2521-46-59 10:42:0017[facility]annCHEM KKFOV4532-17-59 10:42:446452Hytwzleo HermannCHEM KDVWN6591-20-10 10:42:000.5[facility]annCHEM WAGXL0369-34-30 10:42:000.3[facility]annCHEM WRLGP8256-94-28 10:42:0079[facility]annCHEM KVINT7504-34-47 10:42:45569 [facility]annCHEM ZSIUM9292-30-58 10:42:005.5[facility]annCHEM PANEL 2016-07-26 10:42:003.7[facility]annCHEM OAHRN4521-53-12 10:42:001.8[facility]annCHEM GGEXO9309-80-14 10:42:002.1[facility] FbkairzGMSBEHVGJU3330-76-10 10:42:00Present *ABN*(07/26/16 4:42 AM)[facility] MpxfdwoEBLASTHNWS2104-15-71 10:42:001+ *ABN*(07/26/16 4:42 AM)[facility] XfvqpmrVPXOWUGOAY4295-34-22 10:42:000.1 [facility] AxvkapxZNRFFKPROD7582-65-44 10:42:00Moderate *ABN*(07/26/16 4:42 AM) [facility] CqnwhdwUCIWMNLZWC1084-35-63 10:42:0042[facility]annCHEM PANEL 2016-07-26 10:42:0017[facility]annCHEM ICXHN2937-79-83 10:42:836775Mpdolmgd HermannCHEM ZKIUV7077-46-66 10:42:000.5[facility] HermannCHEM GIEOV6507-91-28 10:42:000.3[facility]annCHEM UKJYV2742-70-52 10:42:0079[facility]annCHEM TXTSZ3920-51-61 10:42:69634Fyvpicve HermannCHEM CVIRN0159-77-38 10:42:005.5 [facility]annCHEM CUVWW7395-50-51 10:42:003.7[facility]annCHEM PANEL 2016-07-26 10:42:001.8[facility]annCHEM MMZAZ9705-61-97 10:42:002.1[facility] AvclwmyFLXRMRZOLX3084-53-19 10:42:00Present *ABN*(07/26/16 4:42 AM)[facility] HwtzsiqLIKLINYNGC0472-37-15 10:42:001+ *ABN*(07/26/16 4:42 AM)[facility] FCSIEOJCTG5494-79-16 10:42:000.1[facility] EbtkfreBXBNBXSSOJ0114-20-44 10:42:00 Moderate *ABN*(07/26/16 4:42 AM)[facility] XwfxcquVUQPZHLYPO1227-78-25 10:42:0042 [facility]annCHEM TMAOD2364-02-17 10:42:0017[facility]annCHEM PANEL 2016-07-26 10:42:846723Xusvznkz HermannCHEM IGLDJ9120-67-78 10:42:000.5[facility]annCHEM NHJRK6023-19-72 10:42:000.3[facility] HermannCHEM HKYXH5169-67-09 10:42:0079[facility]annCHEM ABINX8161-83-69 10:42:66953Thzsfwka HermannCHEM VEIMV8350-07-73 10:42:005.5[facility]annCHEM PXMHC0974-22-09 10:42:003.7 [facility]annCHEM WJWUW4887-80-25 10:42:001.8[facility]annCHEM PANEL 2016-07-26 10:42:002.1[facility] BcodlaeRCLZIGEGXZ2827-74-43 10:42:00Present *ABN*(07/26/16 4:42 AM)[facility] NgtdimmSOOVFWNRVD3826-63-40 10:42:001+ *ABN*(07/26/16 4:42 AM)[facility] BmrzwrnQLEMVZELHQ6638-29-31 10:42:000.1[facility] YajntgqEQMVLYUHRL0795-44-42 10:42:00Moderate *ABN*(07/26/16 4:42 AM)[facility] UjeyonkTVUSMYRODC0152-88-86 10:42:0042[facility]annURINE AND HNFSW5569-86-48 16:34:001[facility] AND LQLXQ2880-27-15 16:34:004[facility]INE AND XGNMP8587-72-78 16:34:00Negative (07/25/16 10:34 AM)[facility]INE AND GKNEK6662-75-43 16:34:00Negative (07/25/16 10:34 AM)[facility] AND ISUVM4779-85-30 16:34:002[facility]UR[facility] AND UBFHD2836-03-09 16:34:006[facility]UR[facility] AND DMRJS2570-14-70 16:34:002.0[facility] URINE AND SQTMK2444-95-89 16:34:00Negative (07/25/16 10:34 AM)[facility]INE AND HWUDR5414-60-21 16:34:00Negative *NA*(07/25/16 10:34 AM)[facility]INE AND VOZNV6830-93-42 16:34:001.012[facility]UR[facility] AND YOHOX9851-60-87 16:34:005.5[facility] AND LURLC9984-53-75 16:34:00Slight *ABN*(07/25/16 10:34 AM)[facility] AND DZIWG7588-16-41 16:34:00Dark Yellow *NA*(07/25/16 10:34 AM)[facility] AND FBWQB0166-40-20 16:34:009 [facility] WKGG0881-26-83 16:34:0030[facility] CHEM 2016-07-25 16:34:003.1[facility] MYKH2086-24-17 16:34:53825.9[facility] RVRO3227-23-28 16:34:18981.00[facility] AND STOOL 2016-07-25 16:34:001[facility] AND OUESX3535-50-59 16:34:004[facility] AND QXKXW3233-88-18 16:34:00Negative (07/25/16 10:34 AM)[facility] EMRJN9419-44-82 16:34:00Negative (07/25/16 10:34 AM)[facility] OYNOK5762-37-10 16:34:002[facility] STOOL 2016-07-25 16:34:006[facility] AND QJDUR9116-94-34 16:34:002.0 [facility] GCQKW0108-74-51 16:34:00Negative (07/25/16 10:34 AM) [facility] UOJBY2480-28-86 16:34:00Negative *NA*(07/25/16 10:34 AM) [facility] HDYLV1156-66-62 16:34:001.012[facility] AND UNNAI9727-43-82 16:34:005.5[facility] AND JWOWN4827-65-82 16:34:00 Slight *ABN*(07/25/16 10:34 AM)[facility] QAXYY1950-10-20 16:34:00 Dark Yellow *NA*(07/25/16 10:34 AM)[facility] YMJLP1774-97-95 16:34:009[facility] YJJS5451-07-78 16:34:0030[facility] EOJY2405-72-64 16:34:003.1[facility] DGXE3759-60-36 16:34:57207.9 [facility] RZRE8905-35-59 16:34:86901.00[facility] AND BLXGP0926-06-18 16:34:001[facility] AND LOSOL8649-51-43 16:34:004 [facility] QTGGE8227-54-89 16:34:00Negative (07/25/16 10:34 AM) [facility] BPYUX0119-27-87 16:34:00Negative (07/25/16 10:34 AM) [facility] CYASP9099-67-43 16:34:002[facility] JFSWE1543-64-42 16:34:006[facility] AVAWP7216-92-06 16:34:002.0 [facility] CQOOG0826-46-41 16:34:00Negative (07/25/16 10:34 AM) [facility] MAUCV4390-58-86 16:34:00Negative *NA*(07/25/16 10:34 AM) [facility] OALDE5216-39-69 16:34:001.012[facility] BLOIU6767-25-57 16:34:005.5[facility] AND ZHHMR7808-77-69 16:34:00 Slight *ABN*(07/25/16 10:34 AM)[facility] DXKBZ3823-81-95 16:34:00 Dark Yellow *NA*(07/25/16 10:34 AM)[facility] AWPOF3781-30-86 16:34:009[facility] AVGL7148-27-33 16:34:0030[facility] QKWG6893-95-79 16:34:003.1[facility] LAKC2783-25-08 16:34:55708.9 [facility] YSGM8093-49-62 16:34:17401.00[facility] AND KFNIA2967-16-83 16:34:001[facility] AND HWJLJ4616-68-07 16:34:004 [facility] AFZBK1832-00-51 16:34:00Negative (07/25/16 10:34 AM) [facility] IHOQB8041-37-50 16:34:00Negative (07/25/16 10:34 AM) [facility] WOUGN3473-51-86 16:34:002[facility] AND CZFZX7791-44-12 16:34:006[facility] ZOXEE6544-06-52 16:34:002.0 [facility] RDHJZ0380-04-69 16:34:00Negative (07/25/16 10:34 AM) [facility] WMNPK5351-72-76 16:34:00Negative *NA*(07/25/16 10:34 AM) [facility] UABDM9775-92-13 16:34:001.012[facility] AND FBHNR2157-88-68 16:34:005.5[facility] CGBSA3342-03-59 16:34:00 Slight *ABN*(07/25/16 10:34 AM)[facility] UDQWQ3332-92-08 16:34:00 Dark Yellow *NA*(07/25/16 10:34 AM)[facility] QBFEJ1961-44-07 16:34:009[facility] KHTE1112-98-10 16:34:0030[facility] GYXI0952-06-83 16:34:003.1[facility] SUVG4720-19-60 16:34:64483.9 [facility] ONHU1687-57-08 16:34:29762.00[facility] AND MCLBK7754-69-86 16:34:001[facility] VVDGD8055-76-26 16:34:004 [facility] GGXBC0754-23-10 16:34:00Negative (07/25/16 10:34 AM) [facility] LFSGB3984-35-21 16:34:00Negative (07/25/16 10:34 AM) [facility] RMIDZ9430-89-11 16:34:002[facility] WRXUD0943-83-90 16:34:006[facility] AND PQHRR8362-57-09 16:34:002.0 [facility] KRJHJ0199-67-69 16:34:00Negative (07/25/16 10:34 AM) [facility] HKZYL6557-73-98 16:34:00Negative *NA*(07/25/16 10:34 AM) [facility] JQRJT0226-84-25 16:34:001.012[facility] ZADRM1984-27-25 16:34:005.5[facility] AND TMESJ0221-86-25 16:34:00 Slight *ABN*(07/25/16 10:34 AM)[facility] ESZHF8602-40-16 16:34:00 Dark Yellow *NA*(07/25/16 10:34 AM)[facility] VNAHZ8906-46-21 16:34:009[facility] OQJV0197-33-84 16:34:0030[facility] LMVH5300-33-53 16:34:003.1[facility] OALR4281-81-92 16:34:30785.9 [facility] CAED8641-49-02 16:34:62991.00[facility] AND MYVUO3123-19-05 16:34:001[facility] TBUCH8081-98-83 16:34:004 [facility] NSDAM5957-01-28 16:34:00Negative (07/25/16 10:34 AM) [facility] XVQSW7530-63-28 16:34:00Negative (07/25/16 10:34 AM) [facility] OHIFN4071-58-23 16:34:002[facility] AND XXSGJ1511-92-40 16:34:006[facility] AND RRXKF4093-21-69 16:34:002.0 [facility] MHGQY0996-13-96 16:34:00Negative (07/25/16 10:34 AM) [facility] RUEBL7493-43-08 16:34:00Negative *NA*(07/25/16 10:34 AM) [facility] GNJYI2043-11-91 16:34:001.012[facility] JJRLP0415-14-47 16:34:005.5[facility] AND LCPDO0081-81-80 16:34:00 Slight *ABN*(07/25/16 10:34 AM)[facility] RTMQT7490-77-48 16:34:00 Dark Yellow *NA*(07/25/16 10:34 AM)[facility] LNYYN2759-81-48 16:34:009[facility] WYCG9698-93-12 16:34:0030[facility]UR[facility] HYZY3876-63-83 16:34:003.1[facility] YPWN0494-47-30 16:34:04707.9 [facility] WINT0342-75-40 16:34:12388.00[facility] HermannCHEM PANEL 2016-07-25 08:55:002.0[facility] HermannCHEM GFOLH9336-10-49 08:55:005.2[facility]annCHEM FSESB6081-30-57 08:55:002.0[facility]annCHEM MFIFS0142-71-81 08:55:005.2[facility]annCHEM UDECQ1067-32-15 08:55:002.0[facility]annCHEM BDUFK7065-42-41 08:55:005.2[facility]annCHEM VZDNJ7398-24-06 08:55:002.0 [facility]annCHE[facility] LBPCT1024-43-83 08:55:005.2[facility]annCHEM PANEL 2016-07-25 08:55:002.0[facility]annCHEM WQUKJ4320-12-60 08:55:005.2[facility]annCHEM ADRUN3768-59-87 08:55:002.0[facility]annCHEM ORRCN4922-79-88 08:55:005.2[facility] HermannCARDIAC XXUMJGR7828-10-78 17:29:000.28[facility] HermannCARDIAC CBDATYJ0485-98-26 17:29:020578Bcuxxkcd HermannCARDIAC ENZYMES 2016-07-24 17:29:000.144[facility]annCARDIAC MYWQXPE5318-19-34 17:29:000.2 [facility]annCARDIAC SWENMFO8744-86-09 17:29:006.3[facility]annCARDIAC URHKSCQ9656-42-20 17:29:000.28[facility]annCARDIAC AVLYDGB9648-21-52 17:29:00 2616[facility]annCARDIAC GSXJQEL9187-74-21 17:29:000.144[facility] CARDIAC THOOCVR3168-66-55 17:29:000.2[facility] HermannCARDIAC NJEXWUD2698-59-20 17:29:006.3[facility]annCARDIAC ULFQYXS6579-53-52 17:29:000.28[facility]annCARDIAC XEADQUX9801-49-57 17:29:171622Fnhfvkfc HermannCARDIAC ENZYMES 2016-07-24 17:29:000.144[facility]annCARDIAC VGUXNJF8541-64-49 17:29:000.2 [facility]annCARDIAC ZWZQIFY6693-51-50 17:29:006.3[facility]annCARDIAC ZFEVYBT7509-07-36 17:29:000.28[facility]annCARDIAC TWQLAKH0546-35-92 17:29:00 2616[facility]annCARDIAC MHVJWCI9489-63-63 17:29:000.144[facility] CARDIAC QOBIVCF4201-50-50 17:29:000.2[facility]annCARDIAC JXBORFE7588-33-22 17:29:006.3[facility] VPBTMWD6988-91-78 17:29:000.28[facility] WNKTZWC1264-65-29 17:29:602397Csslylzt HermannCARDIAC ENZYMES 2016-07-24 17:29:000.144[facility] YSDSEQP7277-26-06 17:29:000.2 [facility] QOUHJEH1369-55-08 17:29:006.3[facility] RZPWPTR8652-16-55 17:29:000.28[facility] PVPZFSF3754-81-04 17:29:00 2616[facility] OKUHLGB6636-69-66 17:29:000.144[facility] CARDIAC RVWVRDZ8302-35-37 17:29:000.2[facility] XTHPCMI2996-99-32 17:29:006.3[facility] WCTHLVF0985-10-50 11:20:000.38[facility] STLCZIX2009-94-47 11:20:000.173[facility] ENZYMES 2016-07-24 11:20:000.2[facility] YQDWEUB0252-67-09 11:20:005.6 [facility]annCHEM MUSYR8841-40-61 11:20:005.5[facility] ENZYMES 2016-07-24 11:20:000.38[facility] FLNXSRO8630-70-61 11:20:000.173 [facility] MKLQORF7645-46-63 11:20:000.2[facility] CILJJRP9947-75-77 11:20:005.6[facility]annCHEM HDELI7493-02-00 11:20:005.5 [facility] PKOMAZZ2783-17-33 11:20:000.38[facility] JBGOBGY8028-75-31 11:20:000.173[facility] SWYIBQH5201-38-30 11:20:000.2[facility] PMTYUCQ8923-18-58 11:20:005.6[facility] CHEM CLXFW1913-10-43 11:20:005.5[facility] CESWUJJ9471-73-87 11:20:000.38[facility] MSYWIXK9741-00-47 11:20:000.173[facility] SSGEKLK8780-11-18 11:20:000.2[facility] ENZYMES 2016-07-24 11:20:005.6[facility]annCHEM EUYAT9993-43-60 11:20:005.5[facility]AC OCPWFBW8052-29-64 11:20:000.38[facility] ENZYMES 2016-07-24 11:20:000.173[facility] LHTWLLS1546-79-66 11:20:000.2 [facility] UOAKSTS2346-06-95 11:20:005.6[facility] HermannCHEM PANEL 2016-07-24 11:20:005.5[facility] SNGINJM5660-57-72 11:20:000.38 [facility] VTTUZEE2009-86-48 11:20:000.173[facility] UIUBQSG7080-55-27 11:20:000.2[facility] UXMSAOS4941-43-11 11:20:00 5.6[facility]annCHEM VRWUR8842-85-18 11:20:005.5[facility]AC TNEZNNL5015-95-61 06:18:31194Qhqborpz HermannCARDIAC UICHUIG4277-62-44 06:18:00 701[facility]AC VXQTSNK0205-55-55 06:18:03346Aezuuuhp HermannCARDIAC XPBTAPX0853-39-96 06:18:32141Eytqqfzs HermannCARDIAC UNFQWIS0786-91-30 06:18:00 701[facility]AC JMKFPSX5629-14-55 06:18:70611Ramzfajp HermannCARDIAC NSYKLSH6689-78-43 04:59:270.57[facility] XCBQZAT1496-70-31 04:59:27 0.57[facility]CARD[facility]AC ZSADAZE6864-82-21 04:59:270.57[facility] CARDIAC YPTRBLT8514-39-46 04:59:270.57[facility] FKOIDXT8576-28-71 04:59:270.57[facility]AC KMIZMRM6710-68-83 04:59:270.57[facility]AC RIHKLZM9682-89-78 10:22:73595Ctdrlmnb HermannCHEM GIWPA8212-92-24 10:22:002.1[facility]annCHEM HPBTL8728-99-95 10:22:02101Abicgflh HermannCHEM EUCCD6358-95-56 10:22:0041[facility]annCHEM WQSMW7673-71-97 10:22:002.00 [facility]annCHEM KPPPR0334-69-47 10:22:009.0[facility]annCHEM PANEL 2016-06-15 10:22:34144Poubdler HermannCHEM BAASH5612-66-26 10:22:0033[facility] HermannCHEM RKQCN1790-16-12 10:22:17939Kgczdwmq HermannCHEM JHRRR7786-31-21 10:22:004.0[facility]annCHEM ZKTVK7719-91-42 10:22:0032[facility] HermannCHEM QCEKP1349-39-01 10:22:0013.0[facility] HermannCHEM KVPNA3364-21-45 10:22:004.6 [facility] ClpnmguWCTVDBCWWF1998-26-49 10:22:003.68[facility]annHEMATOLOGY 2016-06-15 10:22:009.9[facility] YhjzrxiDBFEIPTIPP7616-56-63 10:22:00 Test Item Value Reference Range Interpretation Comments MCH (test code = MCH) 26.8 pg 27.0-31.0 [facility] QhjyskhMJNWFADZTX8375-58-62 10:22:0034.2[facility] HermannHEMATOLOGY 2016-06-15 10:22:0078.3[facility] BvniorsBYRWUQVVEY4291-17-69 10:22:0028.8[facility] UppofxmJRLLLVHRLU7283-55-71 10:22:93646Mvjtlqkw VlygglcLGSXJZUFQJ6124-64-21 10:22:009.5[facility] HmnfjzgBQJHWLIQOF4174-72-51 10:22:0015.3[facility] ZYYQPBZIES3247-08-60 10:22:005.6[facility] VncftitAJCIQYIFBH2794-90-22 10:22:000.5 [facility] EdaulwsQHVUFHYJBN1556-42-48 10:22:001+ *ABN*(06/15/16 4:22 AM)[facility] PqkgqjgQKKCJKNATG6319-92-18 10:22:000.1[facility] HclifqaNSIGMMCVTX9546-65-16 10:22:0033.5[facility] XrelblpCGNCKKWWNB9406-40-62 10:22:0047.6[facility] DKBCNEOVVI3795-16-11 10:22:008.4[facility] OnfxfioICQSFNMQEN5020-43-48 10:22:009.4 [facility] DkkutpnVAOMICTMJE7531-83-97 10:22:002.6[facility] HermannHEMATOLOGY 2016-06-15 10:22:001.9[facility] QmyjeufRKJGLQDLEP7422-20-99 10:22:001.1[facility] EfklhdyZCHNIMUNCI6766-70-25 10:22:000.5[facility]annCARDIAC SMZTCVR7473-38-73 10:22:90577Leoxfber HermannCHEM RDYKG3062-24-04 10:22:002.1[facility] HermannCHEM XVOQX8513-11-90 10:22:58496Fdydyoxo HermannCHEM PQHDE4616-99-78 10:22:0041 [facility] HermannCHEM ARCLO8274-57-10 10:22:002.00[facility] HermannCHEM PANEL 2016-06-15 10:22:009.0[facility] HermannCHEM NEFAP5936-66-62 10:22:88665Gqvdrnkf HermannCHEM TISIA0980-38-90 10:22:0033[facility] HermannCHEM EZUEL9765-33-59 10:22:73014Jntcsuhb HermannCHEM LDBXU8720-83-54 10:22:004.0[facility] HermannCHEM GWXEA3097-84-58 10:22:0032[facility] HermannCHEM AVURN3226-31-99 10:22:0013.0 [facility] HermannCHEM NAGHZ3101-23-48 10:22:004.6[facility] HermannHEMATOLOGY 2016-06-15 10:22:003.68[facility] AhxtheiFVGCIOYOTG5298-19-64 10:22:009.9[facility] AtxhmehNGABFVUFCC9466-65-04 10:22:00 Test Item Value Reference Range Interpretation Comments MCH (test code = MCH) 26.8 pg 27.0-31.0 [facility] DdbaatjKYDWTUKPZD8119-88-16 10:22:0034.2[facility] HermannHEMATOLOGY 2016-06-15 10:22:0078.3[facility] BthdtyoGHMCBYYVXZ0265-02-58 10:22:0028.8[facility] CwtiezhLBDVFYCDFP8037-38-86 10:22:94045Xfcoeiyn XynedzqBNFUBSTHJY7315-45-43 10:22:009.5[facility] RydmuvlTANQKMPJYC3632-94-89 10:22:0015.3[facility] QVHBSDTRPN2071-95-24 10:22:005.6[facility] ZwwokcwWZWUCEJFQN8590-86-54 10:22:000.5 [facility] IifgezcHGYLTHSONP0436-43-57 10:22:001+ *ABN*(06/15/16 4:22 AM)[facility] BxuvoelHTWEFLIPKY8784-34-25 10:22:000.1[facility] UopzyqgNJXYHGIHTC5811-99-27 10:22:0033.5[facility] GdswnhmGFLOXYHBXP7162-15-03 10:22:0047.6[facility] QGTYRKHTCD4495-53-38 10:22:008.4[facility] TtyfeiiARTFHYUHPC5498-09-73 10:22:009.4 [facility] QlftcouRDJFWULLVQ5252-10-39 10:22:002.6[facility]annHEMATOLOGY 2016-06-15 10:22:001.9[facility] UdpmenhMYUMLFXYRX5650-40-86 10:22:001.1[facility] XyctiymLDHIDPTWZN4669-60-88 10:22:000.5[facility] HermannCARDIAC BAINUZX3424-78-92 10:22:26307Lietvuyh HermannCHEM KXPCP3403-06-97 10:22:002.1[facility] HermannCHEM LFBMQ2450-14-04 10:22:33611Kpevpsci HermannCHEM NHCGY4029-50-12 10:22:0041 [facility]annCHEM TZHFC6236-39-31 10:22:002.00[facility] HermannCHEM PANEL 2016-06-15 10:22:009.0[facility] HermannCHEM XKLRU6873-44-66 10:22:39120Ytotoxzj HermannCHEM CJOSV6675-63-69 10:22:0033[facility]annCHEM CGSQB9334-41-10 10:22:36400Gzxgruuk HermannCHEM REGEI2746-54-94 10:22:004.0[facility] HermannCHEM BRCSQ4381-02-24 10:22:0032[facility]annCHEM ACTLK0765-18-34 10:22:0013.0 [facility]annCHEM QRXND3003-12-84 10:22:004.6[facility] HermannHEMATOLOGY 2016-06-15 10:22:003.68[facility] VpoqdsoDAJEFYSYKL7616-42-05 10:22:009.9[facility] AimlcjzPQXXIDABOL6170-97-73 10:22:00 Test Item Value Reference Range Interpretation Comments MCH (test code = MCH) 26.8 pg 27.0-31.0 [facility] YexcxfgZYVWTFMMWN5391-34-38 10:22:0034.2[facility] HermannHEMATOLOGY 2016-06-15 10:22:0078.3[facility] XgfuokrSDHUXHTBAE7513-69-20 10:22:0028.8[facility] VgexlxnPNNPLNFNXA3110-62-85 10:22:88684Cgyatphw UvrzhpnFYUGXLFLWO2697-25-19 10:22:009.5[facility] FkimalwIZTMNKUZOA9454-99-32 10:22:0015.3[facility] FCGGXLOLBH0835-57-08 10:22:005.6[facility] IdmubrdEEQTKKJUOE0952-81-46 10:22:000.5 [facility] RtlpqsjGBPAKYXPGP7892-85-52 10:22:001+ *ABN*(06/15/16 4:22 AM)[facility] VbrhylmTYQWPVBPSP3247-55-93 10:22:000.1[facility] XxoqzhgVDRQSIDLHY2458-04-90 10:22:0033.5[facility] TtblgqtYACXTRIYJO2271-33-36 10:22:0047.6[facility] PCPPSCXJLC6560-67-21 10:22:008.4[facility] WpjglipBEEDYNJUYC6329-17-50 10:22:009.4 [facility] QpwdmghVOXRBZARRY8113-79-16 10:22:002.6[facility] HermannHEMATOLOGY 2016-06-15 10:22:001.9[facility] GkntbxuTJBUEMFYCS3404-11-58 10:22:001.1[facility] HixwpuxSSNCAPJCBV1684-87-75 10:22:000.5[facility] HermannCARDIAC DGDTNTE6434-19-98 10:22:42231Maalqlct HermannCHEM UEXKF9627-13-69 10:22:002.1[facility] HermannCHEM EYLQW8130-58-68 10:22:63890Fbvsdweh HermannCHEM YQIGH9781-54-12 10:22:0041 [facility]annCHEM IHVWG6901-90-95 10:22:002.00[facility] HermannCHEM PANEL 2016-06-15 10:22:009.0[facility] HermannCHEM TMRCM9062-04-92 10:22:96697Hpafdlyg HermannCHEM DHELU5117-64-23 10:22:0033[facility]annCHEM MBVJV1733-03-47 10:22:98773Pkqhauos HermannCHEM BDWKI0759-27-40 10:22:004.0[facility] HermannCHEM ZOQZA3289-53-29 10:22:0032[facility]annCHEM UKBQN8201-47-49 10:22:0013.0 [facility]annCHEM RANPW8209-34-96 10:22:004.6[facility] HermannHEMATOLOGY 2016-06-15 10:22:003.68[facility] TtcngktXIQIHZXDYM7509-46-60 10:22:009.9[facility] VxgldegXXPDJIRMLS1675-65-93 10:22:00 Test Item Value Reference Range Interpretation Comments MCH (test code = MCH) 26.8 pg 27.0-31.0 [facility] XygnntdVPVFAFOMFB2667-89-72 10:22:0034.2[facility] HermannHEMATOLOGY 2016-06-15 10:22:0078.3[facility] OmkivxaFCPMZKISIY5280-33-25 10:22:0028.8[facility] YfgafntRBZXPFLWVV4976-35-80 10:22:52007Yeceomvn KjhhlygGMFGEDKIMV5123-12-27 10:22:009.5[facility] TmcpvsyYGLLQQQIUL7342-80-61 10:22:0015.3[facility] NIABOWARMG1437-30-24 10:22:005.6[facility] LhyywlpUDZYIPTAGC4698-43-78 10:22:000.5 [facility] ZqkfofyZIXDSYBIOR1315-36-64 10:22:001+ *ABN*(06/15/16 4:22 AM)[facility] NraczjiKWQCTQWRBH3144-14-63 10:22:000.1[facility] ZlikaigJQBMNONGJS1856-90-09 10:22:0033.5[facility] KquawvhZQIHYDPKJA4650-15-66 10:22:0047.6[facility] GYGSXRIVJO6941-46-31 10:22:008.4[facility] VmmjkouVCZNAXSDXB5974-16-98 10:22:009.4 [facility] HgxcbbmZZARHEBZPI1629-05-07 10:22:002.6[facility] HermannHEMATOLOGY 2016-06-15 10:22:001.9[facility] KagnjefXNZZXCUZQC3035-42-73 10:22:001.1[facility] CbyoxrlSVGNGQPGKZ3178-18-82 10:22:000.5[facility] HermannCARDIAC EBVROZS5832-28-72 10:22:42073Aciinmpr HermannCHEM QOBOZ9122-85-52 10:22:002.1[facility] HermannCHEM IETNX5133-21-29 10:22:22676Litjjowt HermannCHEM IDKWU6380-50-60 10:22:0041 [facility]annCHEM WXEDK7506-41-80 10:22:002.00[facility] HermannCHEM PANEL 2016-06-15 10:22:009.0[facility] HermannCHEM GGNGR8752-48-08 10:22:57152Yjgkbmwx HermannCHEM VZTKV1319-81-56 10:22:0033[facility]annCHEM TDKAA3634-66-23 10:22:04200Eajkqmgv HermannCHEM OSCQU4279-54-17 10:22:004.0[facility] HermannCHEM HUVNH5436-11-80 10:22:0032[facility]annCHEM SGRRX7757-29-86 10:22:0013.0 [facility] HermannCHEM MIMEX0278-36-71 10:22:004.6[facility] HermannHEMATOLOGY 2016-06-15 10:22:003.68[facility] RlgockwFTCGISEAOJ7991-09-97 10:22:009.9[facility] ScedwcaRFTABVGEHJ8358-97-70 10:22:00 Test Item Value Reference Range Interpretation Comments MCH (test code = MCH) 26.8 pg 27.0-31.0 [facility] WwhhrixDFFQSRKOPD0284-29-39 10:22:0034.2[facility] HermannHEMATOLOGY 2016-06-15 10:22:0078.3[facility] DcbrafaQLLUXTARTH8362-14-52 10:22:0028.8[facility] QzpveslOYRNDJLVOY4315-88-78 10:22:26982Vuwspave YsqxnysPKSSZYHUMN3908-40-75 10:22:009.5[facility] StiaxbzDVPBKIHWSA3787-05-33 10:22:0015.3[facility] DZBIZTBRTT4152-50-17 10:22:005.6[facility] DnuoesxLFHSSCGDYA3832-64-01 10:22:000.5 [facility] CljigsfHMMEPCNTVL3158-25-50 10:22:001+ *ABN*(06/15/16 4:22 AM)[facility] GkwxuvxNDFZDUQWLE5980-56-95 10:22:000.1[facility] IgykcjiMLTLHZMTMY1494-39-69 10:22:0033.5[facility] DjhmeuhBMEMOASMAY9072-55-87 10:22:0047.6[facility] NTNYKBZKCG7768-79-02 10:22:008.4[facility] YouieaiKDULDBSVUG7641-82-76 10:22:009.4 [facility] DzqahpwKYVGEQONRE6643-45-54 10:22:002.6[facility] HermannHEMATOLOGY 2016-06-15 10:22:001.9[facility] EpagjjuUTEOQFCZJG2205-60-20 10:22:001.1[facility] NtaiyijSGZFYAHOZA6346-66-21 10:22:000.5[facility] HermannCARDIAC MHPMBOJ2952-32-28 10:22:82676Ewdimgdy HermannCHEM QWWJJ2077-31-30 10:22:002.1[facility] HermannCHEM HHIJK7548-31-65 10:22:06129Rellufun HermannCHEM VRVBB7546-25-66 10:22:0041 [facility]annCHEM APCQF5662-65-88 10:22:002.00[facility] HermannCHEM PANEL 2016-06-15 10:22:009.0[facility] HermannCHEM KMZCE5150-08-47 10:22:24238Hfekodep HermannCHEM NWWUM2665-66-22 10:22:0033[facility] HermannCHEM QGBBV3487-88-30 10:22:35335Fntgbvpi HermannCHEM QGFVR8506-12-30 10:22:004.0[facility] HermannCHEM CKCCS8702-91-89 10:22:0032[facility] HermannCHEM VENDF9950-10-37 10:22:0013.0 [facility]annCHEM BXMPT2657-04-43 10:22:004.6[facility] HermannHEMATOLOGY 2016-06-15 10:22:003.68[facility] LvukfgqYQLSYBUYVF6379-25-45 10:22:009.9[facility] DnqrdimGANQHOKOAB5631-87-05 10:22:00 Test Item Value Reference Range Interpretation Comments MCH (test code = MCH) 26.8 pg 27.0-31.0 [facility] AsnvncuFWPQKDWPOB5641-19-99 10:22:0034.2[facility] HermannHEMATOLOGY 2016-06-15 10:22:0078.3[facility] AofkyqsJOMURAQKIQ0025-46-19 10:22:0028.8[facility] GjmdmhkSGBUPQYBZJ9232-98-87 10:22:43746Yprpgorh LxebvbzNPLTYBGVDQ8469-58-50 10:22:009.5[facility] RkijfotDPCSNNAKLD4728-28-20 10:22:0015.3[facility] LNQLRZCEAX3384-01-94 10:22:005.6[facility] VrioumbJFWWZQHFRF4456-20-24 10:22:000.5 [facility] PisakkeKWRHSWTRJI4698-60-44 10:22:001+ *ABN*(06/15/16 4:22 AM)[facility] IlwbuvhESHNBEHDCX9349-99-08 10:22:000.1[facility] AouvoseYPKZRDSAZE5826-70-73 10:22:0033.5[facility] VmkovddVBDCMQZZRC1445-72-29 10:22:0047.6[facility] PJCJLYUBOA7325-89-99 10:22:008.4[facility] GbecxhlMSYJJBURXR6538-73-13 10:22:009.4 [facility] VpzrebzLOOJQLELFW8697-06-50 10:22:002.6[facility] HermannHEMATOLOGY 2016-06-15 10:22:001.9[facility] DeexsvjUJSDZYNYTC8132-05-69 10:22:001.1[facility] CmdosocERGSOMANCQ6937-00-73 10:22:000.5[facility] HermannCHEM PCVJP2707-27-96 11:03:004.8[facility] HermannCHEM EEQPJ0339-41-19 11:03:002.0[facility] HermannCHEM CIRIO9394-32-24 11:03:0032[facility] HermannCHEM HVUJB2579-20-32 11:03:60629 [facility]annCHEM GHGKX3982-10-85 11:03:004.4[facility] HermannCHEM PANEL 2016-06-14 11:03:0037[facility] HermannCHEM WKJHO7480-96-32 11:03:80371Zhryeqnf HermannCHEM NVKII3513-48-10 11:03:002.00[facility] HermannCHEM VGWOV4703-44-54 11:03:52763Knmrhjvv HermannCHEM ZJIZU3018-22-29 11:03:008.7[facility] HermannCHEM CQORL3130-65-05 11:03:0032[facility] HermannCHEM SVQMR3149-54-56 11:03:0013.4 [facility] MqyfibyCGNANZXJMC0133-35-41 11:03:0010.3[facility] HermannHEMATOLOGY 2016-06-14 11:03:000.1[facility] DnzqljnXRCRKLBXBU6275-33-10 11:03:000.5[facility] WxszoroQLDPGHXFYN4078-65-55 11:03:000.5[facility] CnyysuaZPZBEUVSSF9460-33-31 11:03:002.1[facility] UcnmwskRLMMEOJNAV5967-83-71 11:03:001.2[facility] NEVIPFRSVH3602-51-36 11:03:001.9[facility] VlwidjuHXYJNTKIRL8676-53-17 11:03:00 42.5[facility] BtfiulyVFWJLEAMQE4237-73-40 11:03:0037.0[facility] HermannHEMATOLOGY 2016-06-14 11:03:009.0[facility] NyftztrSLOELOVQZW3494-99-43 11:03:009.8[facility] VfbbsunAVIKIYGNLO4707-59-25 11:03:005.0[facility] NnfepwaPPFQCHITYK3169-66-44 11:03:003.57[facility] UaxasalGLSJZZCNVR4073-55-25 11:03:009.4[facility] QJABAPBCAR8425-98-01 11:03:0028.5[facility] EqrjcsgFHUWROYOPU7311-23-12 11:03:00 183[facility] YhlldkpPAKMKFRAYB9084-15-51 11:03:0079.9[facility] HermannHEMATOLOGY 2016-06-14 11:03:00 Test Item Value Reference Range Interpretation Comments MCH (test code = MCH) 26.3 pg 27.0-31.0 [facility] MdhtwjzVPEKZQCKEQ4523-58-41 11:03:0033.0[facility] HermannHEMATOLOGY 2016-06-14 11:03:0015.9[facility] HermannCHEM KOWEW7012-76-96 11:03:004.8[facility] HermannCHEM UHCPU2043-75-30 11:03:002.0[facility] HermannCHEM OSLFP4053-93-83 11:03:0032[facility] HermannCHEM AHSQV3351-05-02 11:03:62835Sqkozmqu HermannCHEM LJKST5753-14-32 11:03:004.4[facility] HermannCHEM GFQTT7918-20-81 11:03:0037 [facility]annCHEM BAHLC7444-97-86 11:03:02986Fpjwzlfx HermannCHEM PANEL 2016-06-14 11:03:002.00[facility] HermannCHEM CGVCC7693-90-65 11:03:02666Mjerhytr HermannCHEM BVNPT9135-80-56 11:03:008.7[facility] HermannCHEM COWNE4354-64-77 11:03:0032[facility]annCHEM HWEMB0769-76-50 11:03:0013.4[facility] TIXLRVMPKJ1111-48-76 11:03:0010.3[facility] ZhkmulvYKPONCYOGU9590-73-58 11:03:00 0.1[facility] ZodoxwiFEPQIIFMDQ3609-21-45 11:03:000.5[facility] HermannHEMATOLOGY 2016-06-14 11:03:000.5[facility] TbzjqlqZFDHTUUEVK3891-78-47 11:03:002.1[facility] SihsubnKXSOTBAVVF8036-78-09 11:03:001.2[facility] UvbvmrmJDQXCJLQEH4945-36-94 11:03:001.9[facility] LqxuasxZBYZRRNYXT3196-09-26 11:03:0042.5[facility] GLCCCWZMFY5542-11-17 11:03:0037.0[facility] MxpxakhZIPANSNEZI8246-01-77 11:03:00 9.0[facility] YgreaeiHPRNJXPSJJ0689-26-09 11:03:009.8[facility] HermannHEMATOLOGY 2016-06-14 11:03:005.0[facility] QsetddgGDZUBNZUOY8878-26-38 11:03:003.57[facility] OsrnkbwVOTAVNBADA4089-56-83 11:03:009.4[facility] IsgriokLXFEGOBCQD9366-40-31 11:03:0028.5[facility] PcszgeaLAPOOCLYZR4970-53-15 11:03:60284Dgshqlso [place] WOROSTUIEX7379-70-47 11:03:0079.9[facility] XglbzonOBGNPLSVTU7457-42-30 11:03:00 Test Item Value Reference Range Interpretation Comments MCH (test code = MCH) 26.3 pg 27.0-31.0 [facility] QxtyhvdACRLCHIDZD6586-67-20 11:03:0033.0[facility] HermannHEMATOLOGY 2016-06-14 11:03:0015.9[facility] HermannCHEM AOJDF7397-47-29 11:03:004.8[facility] HermannCHEM UAAVN4864-60-81 11:03:002.0[facility] HermannCHEM DQKLW0573-94-93 11:03:0032[facility]annCHEM BVVEZ0194-60-34 11:03:76166Ccmhjfsx HermannCHEM EDWEZ2893-83-03 11:03:004.4[facility] HermannCHEM QFQSJ8552-15-98 11:03:0037 [facility]annCHEM OLMXP5230-54-29 11:03:18745Qsabirdb HermannCHEM PANEL 2016-06-14 11:03:002.00[facility] HermannCHEM YTHUV8044-64-84 11:03:12681Rkdkzrww HermannCHEM HVQHG8448-02-60 11:03:008.7[facility] HermannCHEM LQJUL6663-92-28 11:03:0032[facility]annCHEM PEDKI8493-23-74 11:03:0013.4[facility] PBUTAEQMDC5696-48-33 11:03:0010.3[facility] WptblulSLYZFMVWFN5692-57-49 11:03:00 0.1[facility] HapdfosHXRWIDPFFQ2512-29-79 11:03:000.5[facility] HermannHEMATOLOGY 2016-06-14 11:03:000.5[facility] JcsovksXUPRRTSQEY3570-81-97 11:03:002.1[facility] HjnirdyORAPHLCPMG4052-00-30 11:03:001.2[facility] ItuupoqIHJLMCLTZW7972-74-38 11:03:001.9[facility] BpijygjTONQGGXILG8817-12-71 11:03:0042.5[facility] RBNQEPMSVP4901-99-82 11:03:0037.0[facility] EqnvouxOAMKTVTUXK1913-84-57 11:03:00 9.0[facility] MmocqmkZYDDTHSTVA3865-32-90 11:03:009.8[facility]annHEMATOLOGY 2016-06-14 11:03:005.0[facility] QtdaeftAEGDAKEYBQ3033-63-33 11:03:003.57[facility] YfsplryBERXNEBWSQ9161-16-67 11:03:009.4[facility] McvbmjsGHKWYEQBCN5414-32-82 11:03:0028.5[facility] NpanqrhLRQEFBCLHA4870-25-64 11:03:58366Wchuhtts Vin NFPFCTZWNN5224-75-45 11:03:0079.9[facility] FjtbgcsRYJBWXRHZK6139-58-68 11:03:00 Test Item Value Reference Range Interpretation Comments MCH (test code = MCH) 26.3 pg 27.0-31.0 [facility] GzuyekqNSIBOBRJGV5472-72-85 11:03:0033.0[facility]annHEMATOLOGY 2016-06-14 11:03:0015.9[facility] HermannCHEM RJKJN1475-66-32 11:03:004.8[facility] HermannCHEM BWLIW2365-12-14 11:03:002.0[facility] HermannCHEM SZBLE8825-17-20 11:03:0032[facility] HermannCHEM TODNI1394-92-24 11:03:01701Sczthgyy HermannCHEM MXWCD9771-47-87 11:03:004.4[facility] HermannCHEM RCOCS8796-43-63 11:03:0037 [facility]annCHEM XJEYY0630-66-46 11:03:25564Fmkxwskd HermannCHEM PANEL 2016-06-14 11:03:002.00[facility] HermannCHEM AGYEV1562-11-88 11:03:76077Ktvremjq HermannCHEM MOYWD8150-45-49 11:03:008.7[facility] HermannCHEM VTQAE9515-28-28 11:03:0032[facility] HermannCHEM ARRCW4018-00-22 11:03:0013.4[facility] YIMFALNJOS7086-30-89 11:03:0010.3[facility] AchddeuULVDEUVAKQ9243-01-45 11:03:00 0.1[facility] SpaakgwQMKVBOCHYY0509-22-77 11:03:000.5[facility]annHEMATOLOGY 2016-06-14 11:03:000.5[facility] LnpnujvGHEGULBNGS2757-74-11 11:03:002.1[facility] JijdtddHEBOOJJDDW9522-17-50 11:03:001.2[facility] PlvyxanOTTLXFFFKW7499-44-24 11:03:001.9[facility] QymtofhGBQZCIXKNN9095-16-81 11:03:0042.5[facility] WOBIFTJQMT9045-04-45 11:03:0037.0[facility] RwvqychSSHOSMODZE6432-17-15 11:03:00 9.0[facility] IotqzrxNSHFERAMFU5723-58-29 11:03:009.8[facility]annHEMATOLOGY 2016-06-14 11:03:005.0[facility] KtsxbkiSICDNDKDUS5984-21-52 11:03:003.57[facility] NxmvtwpQURAJMRBOR1650-59-34 11:03:009.4[facility] MzvoefiTQERRAZZZB3386-59-85 11:03:0028.5[facility] CnrtprdIIHCYULAVE2119-13-11 11:03:76493Xirghsyo Vin YKKJGIOKFU2371-43-62 11:03:0079.9[facility] XxmvajbXUSDQYXVWJ1696-13-57 11:03:00 Test Item Value Reference Range Interpretation Comments MCH (test code = MCH) 26.3 pg 27.0-31.0 [facility] YhwnwnmPVWMYYTTIF6767-50-15 11:03:0033.0[facility] HermannHEMATOLOGY 2016-06-14 11:03:0015.9[facility] HermannCHEM OETPX7301-40-98 11:03:004.8[facility] HermannCHEM CXRXK6926-27-74 11:03:002.0[facility] HermannCHEM MEPUD7622-68-83 11:03:0032[facility] HermannCHEM WRYMA5492-40-09 11:03:45711Vshjmebd HermannCHEM WDIBL5725-66-05 11:03:004.4[facility] HermannCHEM YADSM4222-52-66 11:03:0037 [facility]annCHEM BESRI5007-07-28 11:03:44190Vqsmhbjo HermannCHEM PANEL 2016-06-14 11:03:002.00[facility] HermannCHEM KEVOL7899-98-91 11:03:35778Nfmzezwp HermannCHEM DLOSU6627-72-90 11:03:008.7[facility] HermannCHEM LAOPR3914-09-36 11:03:0032[facility]annCHEM DGCAW1684-80-35 11:03:0013.4[facility] VXBIIFOTMM4930-54-91 11:03:0010.3[facility] RpvglskCXGQIESRNF4994-31-74 11:03:00 0.1[facility] QtzycwpQCVYRNJRUW7963-44-83 11:03:000.5[facility] HermannHEMATOLOGY 2016-06-14 11:03:000.5[facility] ZdqoomyASLYLAIRWY4670-78-01 11:03:002.1[facility] BjvwuqrFHMRGWCOSM5524-19-80 11:03:001.2[facility] CncfzelSWDOEACOSP3066-02-87 11:03:001.9[facility] OkskaodRGNYWKAZUV0068-96-10 11:03:0042.5[facility] MXLMOQJKCN5118-19-07 11:03:0037.0[facility] WwqlkdkXNEZHISNWN7359-24-19 11:03:00 9.0[facility] OrdiiqaTREPQXVVIM7506-19-03 11:03:009.8[facility] HermannHEMATOLOGY 2016-06-14 11:03:005.0[facility] AfjupcpVQKGPJDUFS7583-87-74 11:03:003.57[facility] PxzlyvyDTAXBUDRWI0484-57-24 11:03:009.4[facility] YjizigjTLATNEKXTO0193-93-28 11:03:0028.5[facility] IzdorfbYUUKBKECFE3766-49-81 11:03:57272Zmdeomed Vin YHZDYEMYRZ4089-35-20 11:03:0079.9[facility] IgfppjdUYAITTBNMB0661-18-92 11:03:00 Test Item Value Reference Range Interpretation Comments MCH (test code = MCH) 26.3 pg 27.0-31.0 [facility] HdwwrteMMJQUJDFXR2900-33-24 11:03:0033.0[facility] HermannHEMATOLOGY 2016-06-14 11:03:0015.9[facility] HermannCHEM BHNNS1163-58-12 11:03:004.8[facility] HermannCHEM JVZNS0122-39-31 11:03:002.0[facility] HermannCHEM ZLURM6678-46-25 11:03:0032[facility] HermannCHEM GHCAI4331-91-60 11:03:70738Zirrtwoz HermannCHEM QDFUT5088-43-01 11:03:004.4[facility] HermannCHEM IMEXB5478-32-44 11:03:0037 [facility]annCHEM ATLJW5156-28-48 11:03:94154Nfmevivf HermannCHEM PANEL 2016-06-14 11:03:002.00[facility] HermannCHEM RPCBG4990-03-61 11:03:77186Ydgbonrd HermannCHEM XSACI9973-99-74 11:03:008.7[facility] HermannCHEM KZLAJ6497-73-20 11:03:0032[facility] HermannCHEM SRQNX0889-02-85 11:03:0013.4[facility] SJKPZURPSL4449-21-51 11:03:0010.3[facility] FeegnusYIACWQIUWB6306-78-08 11:03:00 0.1[facility] OqxbpqqZMJFNDACQL8320-17-47 11:03:000.5[facility] HermannHEMATOLOGY 2016-06-14 11:03:000.5[facility] QalylwnORSVRYCBWD9298-68-89 11:03:002.1[facility] HdkgfwbPHHZIGOJGB7889-79-97 11:03:001.2[facility] VhhqdisMJJZDTNVRS9534-22-48 11:03:001.9[facility] LcnydcsCFITMGAVDG0315-34-47 11:03:0042.5[facility] HYWJOKDDSH3951-45-26 11:03:0037.0[facility] GujdircTUIWUJTWHZ2395-48-75 11:03:00 9.0[facility] VhcsbtnLFIYDYRZMB3205-07-59 11:03:009.8[facility] 2016-[facility]-14 11:03:005.0[facility] IwvvcmvKNXEJCXYSF9477-39-38 11:03:003.57[facility] MtapwjmCQQWQPZAVA6523-33-57 11:03:009.4[facility] LtsotjqDYEQOHKZBW5797-97-61 11:03:0028.5[facility] HvoyalcBYRNKOMBFM1559-69-56 11:03:26228Rzymkxtl [place] QRUQFLKARJ5420-14-99 11:03:0079.9[facility] KohfmbkBJIQMWSWLK1459-81-14 11:03:00 Test Item Value Reference Range Interpretation Comments MCH (test code = MCH) 26.3 pg 27.0-31.0 [facility] YuultxrFZYXUZZGFJ9035-06-32 11:03:0033.0[facility] 2016-06-14 11:03:0015.9[facility] IHQS4435-87-50 10:26:006.9[facility] MZHQ9381-32-71 10:26:0019.30[facility] QWCW7872-33-75 10:26:43762.1[facility] FPQC4394-08-39 10:26:006.9[facility] URINE RVLC9458-52-31 10:26:0019.30[facility] BIIV4778-67-71 10:26:00 133.1[facility] EQXR8737-77-83 10:26:006.9[facility] CHEM 2016-06-13 10:26:0019.30[facility] WROL7689-49-12 10:26:46695.1 [facility] TEZU2055-72-08 10:26:006.9[facility] CHEM 2016-06-13 10:26:0019.30[facility] BHYC0613-12-56 10:26:52607.1 [facility] YEGB2507-87-70 10:26:006.9[facility] CHEM 2016-06-13 10:26:0019.30[facility] DGMK0129-26-55 10:26:58655.1 [facility] ERZH0960-40-45 10:26:006.9[facility] CHEM 2016-06-13 10:26:0019.30[facility] UEDI9586-65-62 10:26:99423.1 [facility] PcvsficWUJTELPVXJ6181-94-18 09:20:009.7[facility]HE[facility]OLOG[facility] 2016-06-13 09:20:06194Gfoghooz DddgsoeUCAELVYSBP6857-30-16 09:20:0015.9[facility] JksxmehHSKZAYXDFG0036-50-85 09:20:0079.3[facility] FdsochwTVEYGABCIP2711-71-53 09:20:0033.0[facility] HgxhupeLDWPVWCRTC5015-22-93 09:20:00 Test Item Value Reference Range Interpretation Comments MCH (test code = MCH) 26.2 pg 27.0-31.0 [facility] SprunujVXYPLSWGMJ1269-01-10 09:20:0029.4[facility]annHEMATOLOG[facility] 2016-06-13 09:20:009.7[facility] WwpekigLDWDOBGUAB9043-05-53 09:20:003.70[facility] PgrvlfhOQUQWXVBPU1792-78-18 09:20:005.7[facility] VnoevnhBCVOCYWJOY9971-31-49 09:20:000.1[facility] XwkrxqtLKZQXEAPKC8968-41-51 09:20:002.2[facility] XOMYSFECRH3997-77-46 09:20:000.5[facility] WhhumswWLMADIRLHX8997-95-63 09:20:000.5 [facility] CswswifFPWZEYGTGC3059-18-49 09:20:001.1[facility]HE[facility]Y 2016-06-13 09:20:002.3[facility] BzgovkbXHVERVSWQF3345-69-61 09:20:009.5[facility] AebrgziAKDXGTRLNI1509-30-75 09:20:009.0[facility] GaiceqcWZSWBEEOFY9606-99-43 09:20:0038.9[facility] MiwmrqiLMDHCKYNHT1248-84-98 09:20:0041.5[facility] DJYPHXFPQP7937-10-53 09:20:009.7[facility] BgyyxauUMIJRJHUAH9657-59-17 09:20:52392 [facility] DlnevgrTASGIDPCAS7519-56-96 09:20:0015.9[facility]HE[facility] 2016-06-13 09:20:0079.3[facility] XfkcqpvLZGULIBORS6137-46-86 09:20:0033.0[facility] GunzqeyNQFUVTFHBM5191-50-11 09:20:00 Test Item Value Reference Range Interpretation Comments MCH (test code = MCH) 26.2 pg 27.0-31.0 [facility] SxichfoUVUVIRRIMH7314-82-21 09:20:0029.4[facility]HE[facility]OLOGY 2016-06-13 09:20:009.7[facility] QzcpxcbIDQFNBDGZT2511-95-52 09:20:003.70[facility] IfguzheFQGVGHFHAN1907-48-30 09:20:005.7[facility] LcwejwpSSGEATTSZX3462-94-18 09:20:000.1[facility] ZtkebpaSBRGYXQOWB6320-56-68 09:20:002.2[facility] NDYZMGDNLQ4897-32-53 09:20:000.5[facility] GklcpamYEYKRPLBBC7678-51-69 09:20:000.5 [facility] LnpujbaBHWSTWMFLW0911-57-74 09:20:001.1[facility]HEMATOLOGY 2016-06-13 09:20:002.3[facility] TnvrxsoIJLOUKUJQL8592-59-39 09:20:009.5[facility] SwjdgvuHPHZPRYAYA6442-92-15 09:20:009.0[facility] NmnmvdxTPSNULTAID4492-93-11 09:20:0038.9[facility] HammazuCZPBQSQQIV3517-17-59 09:20:0041.5[facility] OZEMSKQKFD7044-53-90 09:20:009.7[facility] KlwomljZTMJDIMWME3458-97-93 09:20:21395 [facility] XqlgmscJGEDFXURAC6549-90-79 09:20:0015.9[facility]HE[facility]OLOGY 2016-06-13 09:20:0079.3[facility] VkmeesgEJATKQKURV6323-78-74 09:20:0033.0[facility] HagfdfwFRVRQWOMGL3764-53-97 09:20:00 Test Item Value Reference Range Interpretation Comments MCH (test code = MCH) 26.2 pg 27.0-31.0 [facility] SoyyaseJSVEYIRPTK2048-14-64 09:20:0029.4[facility]annHEMATOLOGY 2016-06-13 09:20:009.7[facility] HmlaoddQUGFXVBIRL9968-24-06 09:20:003.70[facility] ApbynxjNDMTCOZUGG4936-48-12 09:20:005.7[facility] DjvcfwbJFYSRVJPPD6649-05-53 09:20:000.1[facility] IellxprHKZMHIGCIT4909-13-62 09:20:002.2[facility] QHLGAYLIGL5512-73-11 09:20:000.5[facility] IbbevchARBQFBDQGM1378-27-01 09:20:000.5 [facility] JtgriydHFNABAZIGC6331-78-82 09:20:001.1[facility]annHEMATOLOGY 2016-06-13 09:20:002.3[facility] RspoxfqBCFOARHURJ4513-46-68 09:20:009.5[facility] WzkapiyNNXTABLHAH1772-18-55 09:20:009.0[facility] MxtxzkuEYVVMJBUQQ8216-57-30 09:20:0038.9[facility] WcmjisiCARDJNUIZA6082-04-46 09:20:0041.5[facility] KWUIITHQIS4035-70-48 09:20:009.7[facility] ResqsoeNHPRBZLZTC0078-35-03 09:20:16389 [facility] FwapqfrECZZSIXLFD9391-86-81 09:20:0015.9[facility]annHEMATOLOGY 2016-06-13 09:20:0079.3[facility] AajgwigSIQLJHPLJO5953-29-19 09:20:0033.0[facility] AypuvfrAPQMEMJHJX0235-97-90 09:20:00 Test Item Value Reference Range Interpretation Comments MCH (test code = MCH) 26.2 pg 27.0-31.0 [facility] RcoavptMGTQSGQWQG1554-25-89 09:20:0029.4[facility]annHEMATOLOGY 2016-06-13 09:20:009.7[facility] NlesknaPCYHWNMQDX2126-46-59 09:20:003.70[facility] EkabketYBVKKKDEQH4098-57-14 09:20:005.7[facility] GilipyaMRKJYXVBYY2937-33-38 09:20:000.1[facility] KdagruyLMHWUEPZHC9074-73-46 09:20:002.2[facility] FSHZSNPNIF0648-55-55 09:20:000.5[facility] ItdzxaaDOFJGPVSYC3585-81-52 09:20:000.5 [facility] MdoexlkHQSVLBAOZH4439-21-85 09:20:001.1[facility]annHEMATOLOGY 2016-06-13 09:20:002.3[facility] OzxzhsjOILJPFSVCI0893-46-96 09:20:009.5[facility] NlzgepmBHDNUNJMYA0332-51-44 09:20:009.0[facility] TfqxovlCQQCHZCRHV2648-36-01 09:20:0038.9[facility] MpxzqheJQIYJEUHVM8365-96-75 09:20:0041.5[facility] YHSSYMXXZK6358-65-56 09:20:009.7[facility] HxadzdaWYVBDOEBQB1809-29-06 09:20:51038 [facility] UqykgffEIRZBNNMHA3821-39-29 09:20:0015.9[facility]annHEMATOLOGY 2016-06-13 09:20:0079.3[facility] OztxboyHHHBPMBZQM0168-24-40 09:20:0033.0[facility] CfrinvdWJIROOOWEK2859-02-81 09:20:00 Test Item Value Reference Range Interpretation Comments MCH (test code = MCH) 26.2 pg 27.0-31.0 [facility] GscimsoLHXMSZWOPW7730-54-71 09:20:0029.4[facility]annHEMATOLOGY 2016-06-13 09:20:009.7[facility] VkjtpweQDOIJZKMKB8303-29-35 09:20:003.70[facility] MscpujvWOPXFBYSWL3775-28-50 09:20:005.7[facility] JlkpebgTCQRMFICAH1236-72-80 09:20:000.1[facility] OzfwgtmYXTGNFEEJU2544-28-07 09:20:002.2[facility] XXLKQQZIVT0327-40-90 09:20:000.5[facility] UtydcngLCYISVIUXJ3921-95-63 09:20:000.5 [facility] GpmfgntHZQEHXQFGG4003-31-80 09:20:001.1[facility]annHEMATOLOGY 2016-06-13 09:20:002.3[facility] MadkrunUMDQZDLHTK7063-41-34 09:20:009.5[facility] UclwvdqUWUYZWZSNR2473-14-28 09:20:009.0[facility] ZzgxnpvXFNDDABFHZ9696-35-39 09:20:0038.9[facility] WuztaldVAQWYCRUPU8879-02-98 09:20:0041.5[facility] PLLEGHDZGG3506-00-73 09:20:009.7[facility] QcvkksoJFZMVACHSH8090-17-20 09:20:41555 [facility] MbsjmoqBDONCTKJMH0491-71-07 09:20:0015.9[facility]HE[facility] 2016-06-13 09:20:0079.3[facility] CdryfjsHBHTFWOJOF4911-32-96 09:20:0033.0[facility] PqcnymnSIQDPBGFDH1318-58-72 09:20:00 Test Item Value Reference Range Interpretation Comments MCH (test code = MCH) 26.2 pg 27.0-31.0 [facility] JdtsshlZBXNIMJORI2154-47-75 09:20:0029.4[facility] HermannHEMATOLOGY 2016-06-13 09:20:009.7[facility] OzvamcrDSKMCGZCCA1109-75-12 09:20:003.70[facility] MoxvqypJQJNIIVJJZ8656-62-47 09:20:005.7[facility] YycjsjvVRLJDBOBWW1030-21-67 09:20:000.1[facility] UcckkimXUKFXNXLKD1621-39-78 09:20:002.2[facility] XOHFWRJWRH8747-41-84 09:20:000.5[facility] KfrzmmnTMSVKFFZCJ2198-29-06 09:20:000.5 [facility] QjrzhufCNFKJWJVMD2479-18-10 09:20:001.1[facility] HermannHEMATOLOGY 2016-06-13 09:20:002.3[facility] NnjwybcFKVFHLPMDB9050-35-61 09:20:009.5[facility] HseuearHDQEIYRKQL8511-56-05 09:20:009.0[facility] QporlwkVZSRZGLUQD6242-30-49 09:20:0038.9[facility] KuwwdzoVQALTIQLEX6443-89-42 09:20:0041.5[facility] CHEM APCFE9811-84-70 06:34:001.7[facility] HermannCHEM PKNYI4396-81-66 06:34:004.2 [facility] YzaqyzeFYOVJWKOULYB1103-42-34 06:34:0014.3[facility] HermannELECTROLYTES 2016-06-13 06:34:0041[facility] RgyumupEPNGPYHZLKJX4653-57-68 06:34:05600Bcrjxxre VcoajqiZBKXMRZSJZTV9093-02-48 06:34:008.5[facility] UuhoxuhCLDNPFPABJEI0584-61-32 06:34:0032[facility] YoytqxmFQTXGCHZNBRQ5329-77-67 06:34:43217Wljyxnat [place] LDKLBBFBHABT4319-82-77 06:34:0037[facility] RgvvqadUJSIUGHKLWTQ8854-82-13 06:34:00 1.63[facility] YcudgpvWSGNSFIHMJGW3900-04-22 06:34:004.3[facility] JJEALUCYNTNZ2683-98-87 06:34:75276Oafxhifo HermannCHEM NUWHF8069-54-44 06:34:00 1.7[facility] HermannCHEM JXYTV4030-78-20 06:34:004.2[facility] HermannELECTROLYTES 2016-06-13 06:34:0014.3[facility] KheppqbHFQYNEQICTRD0792-88-99 06:34:0041[facility] DsnznpfPEVRDQLEVLDE7585-47-64 06:34:54745Cqkuupyx CzifitjRPFDACTBEWQD1293-28-99 06:34:008.5[facility] XlsphusXEKJZDIPFFPX9068-76-75 06:34:0032[facility] MWAOZYYUDHGS9780-46-77 06:34:27129Xfeursem RrrgdgpOHBQDSCKHWZZ5075-13-48 06:34:0037[facility] SamyjidOEOFMTLFXWEF1849-64-35 06:34:001.63[facility] GYUUWGIZYAWJ4139-36-92 06:34:004.3[facility] TdgofyvOFOACUFLXAHH2761-84-56 06:34:89762Zlhsvxoe HermannCHEM YWLCP3957-69-79 06:34:001.7[facility] HermannCHEM DKPKC3500-93-38 06:34:004.2[facility] ClvaogaOTYNPSEIWHSZ3740-73-85 06:34:0014.3 [facility] CvmbrmcKBHNVPIPGUJO7894-96-88 06:34:0041[facility] HermannELECTROLYTES 2016-06-13 06:34:27596Udrjpizl VzovvaeCRGUKWZEYYLI4765-60-14 06:34:008.5[facility] JzmqzvjSYKPHCKUQFXI3564-55-14 06:34:0032[facility] BueahmmMRVIOEHYULSF4562-58-15 06:34:74131Ttsuqydg HcivzftBTCTSSBRHCAY1771-05-73 06:34:0037[facility] RJRERMRDNISY0867-15-29 06:34:001.63[facility] LefucorHPXGRHHGCDZC9354-01-50 06:34:004.3[facility] KvzxpmqNFRWACMFTLKA4782-04-15 06:34:50474Kukbtsea Vni CHEM QPEFF5128-91-02 06:34:001.7[facility] HermannCHEM TPWDD3774-76-29 06:34:004.2 [facility] MugxostHQHRPIZECSVZ1507-26-06 06:34:0014.3[facility] HermannELECTROLYTES 2016-06-13 06:34:0041[facility] EclzvuwRHKVWMJFTKNB7568-04-29 06:34:49556Crtkduot SadqhjcCGUPJJGYHDMV5304-97-53 06:34:008.5[facility] AlsjnrfFKKAMLEXSZGE8159-10-27 06:34:0032[facility] TkklluePOXTFOWDGLPF5865-42-81 06:34:37818Ymtultwp [place] CFCERVNUGUVH8631-73-53 06:34:0037[facility] CfbtnatEFGRKSQOOWSS2734-37-22 06:34:00 1.63[facility] LrftjhpGREUDEJCJMOX0698-12-04 06:34:004.3[facility] FKULOYEBNYIC0313-65-81 06:34:74762Hjijrytn HermannCHEM GDINK0527-51-33 06:34:00 1.7[facility] HermannCHEM KOELD1907-74-14 06:34:004.2[facility] HermannELECTROLYTES 2016-06-13 06:34:0014.3[facility] HpihhubQNAJCHEOZHCF0851-98-78 06:34:0041[facility] WzjxhsyNXIFWBMXUURG6823-28-78 06:34:21403Sdkszgyj WdxybqvEKPMFXRQFBFT3183-70-65 06:34:008.5[facility] UnakgzkIIDINLQIOURF4748-67-64 06:34:0032[facility] MQCMNFWEOIEG1865-57-69 06:34:22234Zaxynetw RmueyunUEYCIHMSYIDP6809-88-53 06:34:0037[facility] HfabjgfJDGOYDYISLRY2207-72-63 06:34:001.63[facility] AHLHMZNEJXIN6937-68-55 06:34:004.3[facility] PdhzknmDNDTJQPDFSDS8077-68-35 06:34:95638Wkormifr HermannCHEM ZMOKT2287-12-73 06:34:001.7[facility] HermannCHEM AWLCV6490-64-78 06:34:004.2[facility] CqfklhvMTVTKKTTXJBA7500-21-37 06:34:0014.3 [facility] GyjsmglQBRXKRWNLAPN2317-50-00 06:34:0041[facility] HermannELECTROLYTES 2016-06-13 06:34:23858Wynbqdqm EhfcvabTFIMQBFBRAJV7470-77-24 06:34:008.5[facility] BimgdiqUCWIQULPFXVZ7729-70-97 06:34:0032[facility] VnpslpfTNSATOFHABKZ9271-84-79 06:34:54413Leejnsxk RuuqlzgZKBUWVKGXJBY5804-85-75 06:34:0037[facility] HLSELQABCLIT3669-04-08 06:34:001.63[facility] CudigjcUJWFJLKXNQMT8167-53-81 06:34:004.3[facility] HxcpaymPMFCODCSAXRZ3368-16-07 06:34:51830Myoevkai [place] CHEM KVLTO9939-51-78 16:21:0048.0[facility] HermannCHEM SGBPJ6965-94-76 16:21:00 48.0[facility] HermannCHEM WJCKF5407-14-37 16:21:0048.0[facility] HermannCHEM PANEL 2016-06-11 16:21:0048.0[facility] HermannCHEM FYEEF6886-93-70 16:21:0048.0[facility] HermannCHEM YAWKB1059-02-72 16:21:0048.0[facility] MlsinojUXPNZYQGRG1174-22-34 14:56:001:40 *ABN*(06/11/16 8:56 AM)[facility] TuhxlrtSHUJSLCQOD6498-83-63 14:56:00Negative *NA*(06/11/16 8:56 AM)[facility]LfkobcnUTRKPDFVTT1184-88-14 14:56:00Negative *NA*(06/11/16 8:56 AM)[facility]JbqtpcfFNBXEVZOLT6329-40-13 14:56:00Negative *NA*(06/11/16 8:56 AM)[facility]neUefvcwzCJJQXBATLD0725-47-88 14:56:00Negative *NA*(06/11/16 8:56 AM)[facility] HospitalLnibhrwGXNHXHNFHY4550-22-46 14:56:00Negative *NA*(06/11/16 8:56 AM)[facility]neBdoknfjMMCKCOOQDB2021-56-10 14:56:00Positive *ABN*(06/11/16 8:56 AM)[facility] HospitalAnaqczbDKVGMXPOJH0014-58-81 14:56:001:40 *ABN*(06/11/16 8:56 AM)[facility] HospitalAhrcwerVKJOXPCFCN2664-06-69 14:56:00Negative *NA*(06/11/16 8:56 AM)[facility] HospitalXtlqjhxFWOUKZHNZA9837-80-71 14:56:00Negative *NA*(06/11/16 8:56 AM)[facility] HospitalEzsuwguNRDJXQNCCP9411-47-62 14:56:00Negative *NA*(06/11/16 8:56 AM)[facility] HospitalAbklfftEEORISSKTC9183-23-73 14:56:00Negative *NA*(06/11/16 8:56 AM)[facility]neYalctlmWARINYBKAG3659-00-27 14:56:00Negative *NA*(06/11/16 8:56 AM)[facility] HospitalPpymeteZWKWCHDTOK7701-65-95 14:56:00Positive *ABN*(06/11/16 8:56 AM)[facility]neDpojmzbOOHLOLWVXP0346-43-81 14:56:001:40 *ABN*(06/11/16 8:56 AM)[facility]neZjtzsvoSBWJBGTJQM8568-24-32 14:56:00Negative *NA*(06/11/16 8:56 AM)[facility]neXunfoszIQNPOIQUMS6135-92-92 14:56:00Negative *NA*(06/11/16 8:56 AM)[facility]neCxjlmybSLFZQWXGTC1266-64-09 14:56:00Negative *NA*(06/11/16 8:56 AM)[facility]neVxikknmFIMBPBXRUW8441-54-28 14:56:00Negative *NA*(06/11/16 8:56 AM)[facility]neXkowaatGFWKAIJLPJ6064-15-94 14:56:00Negative *NA*(06/11/16 8:56 AM)[facility]neHgaplwrPXBKBEFRBL4271-41-96 14:56:00Positive *ABN*(06/11/16 8:56 AM)[facility]neRuuwvptNULSNPZEZZ9702-94-09 14:56:001:40 *ABN*(06/11/16 8:56 AM)[facility]neGngqcxhSLDMYMLUDQ2213-80-03 14:56:00Negative *NA*(06/11/16 8:56 AM)[facility]neDmajplaJTFBZOOLZD4676-49-78 14:56:00Negative *NA*(06/11/16 8:56 AM)[facility]neDxrsdpmFUZUJBIYWB3356-49-67 14:56:00Negative *NA*(06/11/16 8:56 AM)[facility]nePehorhcDIHBOIRLNH0920-21-33 14:56:00Negative *NA*(06/11/16 8:56 AM)[facility]neRfpmqmqFUDOPUUAJM2158-34-23 14:56:00Negative *NA*(06/11/16 8:56 AM)[facility]neIpgkludZXMGRKHLQG7518-61-33 14:56:00Positive *ABN*(06/11/16 8:56 AM)[facility]neQkhizwaYBIRMFHREN5439-90-48 14:56:001:40 *ABN*(06/11/16 8:56 AM)[facility]nePnxhjpnOSPGVLNNKV6730-59-85 14:56:00Negative *NA*(06/11/16 8:56 AM)[facility]neZzibtgrLKWWHPTKAV1807-08-26 14:56:00Negative *NA*(06/11/16 8:56 AM)[facility]neErrkrfxRWYVENZOIR1119-67-65 14:56:00Negative *NA*(06/11/16 8:56 AM)[facility]neMgfhwxyDRYZJHFRUK0392-08-14 14:56:00Negative *NA*(06/11/16 8:56 AM)[facility] TlizbipDXRFZLUPOT0430-42-76 14:56:00Negative *NA*(06/11/16 8:56 AM)[facility] VmvidciHJBLYAKNPE8089-19-16 14:56:00Positive *ABN*(06/11/16 8:56 AM)[facility] AjndxppIMENYXASPS4156-34-97 14:56:001:40 *ABN*(06/11/16 8:56 AM)[facility] GujswzbWXHBNZQKDF5974-06-04 14:56:00Negative *NA*(06/11/16 8:56 AM)[facility] UasxvqcLPFJITAHKW6925-40-46 14:56:00Negative *NA*(06/11/16 8:56 AM)[facility] SsgnvbuELCFCNXEOC8664-65-02 14:56:00Negative *NA*(06/11/16 8:56 AM)[facility] EjjlchgTJGPYTWGEC5550-16-46 14:56:00Negative *NA*(06/11/16 8:56 AM)[facility] TdckghrJNLUOXKMAS2747-90-41 14:56:00Negative *NA*(06/11/16 8:56 AM)[facility] ClmztvvJMPJVYXFHW8635-70-62 14:56:00Positive *ABN*(06/11/16 8:56 AM)[facility] HermannCHEM HPUIO4098-97-72 10:42:000.1[facility]annCHEM LUUPC3086-27-95 10:42:005.2[facility]annCHEM QDSXT5023-11-01 10:42:001.6[facility]annCHEM ERFBT4151-36-21 10:42:0020 [facility]annCHEM TDJOQ6288-85-35 10:42:003.6[facility]annCHEM PANEL 2016-06-11 10:42:000.4[facility] HermannCHEM KTFNR8633-28-15 10:42:0074[facility] HermannCHEM AIKCL7887-75-08 10:42:0014[facility] HermannCHEM CKLXF9190-80-04 10:42:0013[facility] YdilqsaNGXGFSCWBG9843-69-43 10:42:001.06[facility] LJUWNVOZKK5451-03-38 10:42:00 Test Item Value Reference Range Interpretation Comments PT (test code = PT) 14.0 s 12.0-14.7 [facility] OaciktmTHRMZOVRJR0610-85-30 10:42:00 Test Item Value Reference Range Interpretation Comments PTT (test code = PTT) 36.4 s 22.9-35.8 [facility] HermannSPECIAL TTYEDOSQF2139-60-72 10:42:0010.5[facility] HermannCHEM JMIAN9118-27-65 10:42:000.1[facility] HermannCHEM ZSURT6662-50-87 10:42:005.2 [facility]annCHEM YPPLC9300-92-54 10:42:001.6[facility] HermannCHEM PANEL 2016-06-11 10:42:0020[facility] HermannCHEM TCZEM9157-54-93 10:42:003.6[facility] HermannCHEM ZFVZL7378-43-40 10:42:000.4[facility] HermannCHEM OTFBT6251-96-85 10:42:0074[facility] HermannCHEM NATBQ7777-99-77 10:42:0014[facility] HermannCHEM BKFHP0926-48-05 10:42:0013[facility] VjtctgoDXZZVFYEZD7184-23-41 10:42:001.06 [facility] PrtgdkaHXJOCHOPEN7770-08-93 10:42:00 Test Item Value Reference Range Interpretation Comments PT (test code = PT) 14.0 s 12.0-14.7 [facility] NtagdaaPONLFLOJVD0808-83-62 10:42:00 Test Item Value Reference Range Interpretation Comments PTT (test code = PTT) 36.4 s 22.9-35.8 [facility] HermannSPECIAL PSPTVLSLP0461-24-61 10:42:0010.5[facility] HermannCHEM KFPST7222-33-87 10:42:000.1[facility] HermannCHEM MZGNJ0625-58-26 10:42:005.2 [facility] HermannCHEM RBAPJ2618-39-78 10:42:001.6[facility] HermannCHEM PANEL 2016-06-11 10:42:0020[facility] HermannCHEM JGIXE4218-96-39 10:42:003.6[facility] HermannCHEM ZNDGT5715-88-48 10:42:000.4[facility] HermannCHEM VWBMT6183-87-08 10:42:0074[facility] HermannCHEM EJHWY2875-27-88 10:42:0014[facility] HermannCHEM VRLMO1062-02-01 10:42:0013[facility] WtykgjlSVNSOKJMJW9476-38-54 10:42:001.06 [facility] PgprnpoUQXZQQKLVJ6999-48-87 10:42:00 Test Item Value Reference Range Interpretation Comments PT (test code = PT) 14.0 s 12.0-14.7 [facility] PkztopwZMYCUCVAUL0403-02-33 10:42:00 Test Item Value Reference Range Interpretation Comments PTT (test code = PTT) 36.4 s 22.9-35.8 [facility]neannSPECIAL WZYKLIXKG4335-53-10 10:42:0010.5[facility] HermannCHEM LLTUA9986-72-85 10:42:000.1[facility] HermannCHEM BMFBO1093-39-75 10:42:005.2 [facility] HermannCHEM CEMZD6368-66-25 10:42:001.6[facility] HermannCHEM PANEL 2016-06-11 10:42:0020[facility] HermannCHEM LKZKE3363-20-40 10:42:003.6[facility] HermannCHEM XHHIB5446-88-73 10:42:000.4[facility] HermannCHEM CYEBA4080-39-73 10:42:0074[facility] HermannCHEM FIQFN5014-64-91 10:42:0014[facility] HermannCHEM QMWOT1282-29-71 10:42:0013[facility] HwllnfgEMXBKRDPWH8358-96-08 10:42:001.06 [facility] CgryaqfMVWYZTNKNQ1720-79-49 10:42:00 Test Item Value Reference Range Interpretation Comments PT (test code = PT) 14.0 s 12.0-14.7 [facility]neFuufeyxRQODRUEHPZ9384-02-30 10:42:00 Test Item Value Reference Range Interpretation Comments PTT (test code = PTT) 36.4 s 22.9-35.8 [facility]neannSPECIAL GZZTKPYED2701-48-00 10:42:0010.5[facility] HermannCHEM JHKPN3188-35-58 10:42:000.1[facility] HermannCHEM QJLEV7667-32-83 10:42:005.2 [facility] HermannCHEM WTESC4458-99-65 10:42:001.6[facility] HermannCHEM PANEL 2016-06-11 10:42:0020[facility] HermannCHEM PRSFT4905-13-13 10:42:003.6[facility] HermannCHEM XYAUE4741-85-68 10:42:000.4[facility] HermannCHEM RNFTU3823-63-81 10:42:0074[facility] HermannCHEM ZQTHO5416-46-37 10:42:0014[facility] HermannCHEM PYOAA8545-89-37 10:42:0013[facility] SqmpxiqONYJTKKNXK6111-99-79 10:42:001.06 [facility] PrfjnpnWYCAUHLGKP4588-74-38 10:42:00 Test Item Value Reference Range Interpretation Comments PT (test code = PT) 14.0 s 12.0-14.7 [facility] NlioxsuNQABJXZSEP1083-97-24 10:42:00 Test Item Value Reference Range Interpretation Comments PTT (test code = PTT) 36.4 s 22.9-35.8 [facility] HermannSPECIAL FKVAIVETG5694-59-24 10:42:0010.5[facility] HermannCHEM WJEMO2152-32-24 10:42:000.1[facility] HermannCHEM SEEBR6739-29-72 10:42:005.2 [facility] HermannCHEM ZELCJ6650-99-93 10:42:001.6[facility] HermannCHEM PANEL 2016-06-11 10:42:0020[facility] HermannCHEM NLWRW0603-91-23 10:42:003.[facility] HermannCHEM LWRUX9189-40-43 10:42:000.4[facility] HermannCHEM PMBMC1763-30-70 10:42:0074[facility] HermannCHEM HHWJU0069-92-38 10:42:0014[facility] HermannCHEM EYFSJ6496-77-37 10:42:0013[facility] AaweoitFQWWTEGASO4758-37-59 10:42:001.06 [facility] FsvwfzdTQZLJOMXCQ9287-81-26 10:42:00 Test Item Value Reference Range Interpretation Comments PT (test code = PT) 14.0 s 12.0-14.7 [facility] HmaeoymYLPOSWWALY4350-55-22 10:42:00 Test Item Value Reference Range Interpretation Comments PTT (test code = PTT) 36.4 s 22.9-35.8 [facility] HermannSPECIAL XWTWZWBEM3082-90-90 10:42:0010.5[facility] HermannCARDIAC BSQKATA9489-72-11 02:08:001.8[facility] HermannCARDIAC KUPLBIL3747-43-20 02:08:00 2.9[facility] HermannCARDIAC UBGPGMB5255-64-78 02:08:000.061[facility] CARDIAC KZTABRJ6066-01-83 02:08:61119Ioqcoixf HermannCARDIAC YCHEVGS2346-51-31 02:08:00<0.02[facility] HermannCHEM FOJEN3762-88-52 02:08:000.2[facility] CHEM IORME7701-87-16 02:08:000.1[facility] HermannCHEM YPZEO9404-99-30 02:08:000.1 [facility] HermannCHEM HUBCU3830-89-44 02:08:005.7[facility] HermannCHEM PANEL 2016-06-11 02:08:000.5[facility] HermannCHEM YBCFG6855-70-98 02:08:001.8[facility] HermannCHEM AKJQR5691-78-19 02:08:003.9[facility] HermannCHEM WOGBC7454-56-17 02:08:0099[facility] HermannCHEM JXUFM1417-01-05 02:08:0021[facility] HermannCHEM CEUVI8772-74-80 02:08:0017[facility] HermannDRUG KWBXZZ2180-29-18 02:08:00See Note *NA*(06/10/16 8:08 PM)[facility] HermannDRUG CZVWWA2029-29-63 02:08:00Negative *NA*(06/10/16 8:08 PM)[facility] HermannDRUG DPKZRU4502-52-41 02:08:00Negative *NA*(06/10/16 8:08 PM)[facility] HermannDRUG NPLNAP6881-99-20 02:08:00Negative *NA*(06/10/16 8:08 PM)[facility] HermannDRUG MSTGPD8672-13-05 02:08:00Negative *NA*(06/10/16 8:08 PM)[facility] HermannDRUG ZEQJBZ4275-46-03 02:08:00Negative *NA*(06/10/16 8:08 PM)[facility] HermannDRUG KZCPWO5433-44-87 02:08:00Negative *NA*(06/10/16 8:08 PM)[facility] HermannDRUG SDIAFP6794-68-00 02:08:00Negative *NA*(06/10/16 8:08 PM)[facility] HermannDRUG BZKIID8044-42-02 02:08:00Negative *NA*(06/10/16 8:08 PM)[facility] HermannDRUG RENQYM9157-87-31 02:08:00Negative *NA*(06/10/16 8:08 PM)[facility] PrlxkufFQEXTH6555-44-65 02:08:0075[facility] XnuwgawNGVSRH0287-69-95 02:08:0027[facility] EdiqslkBYCZXJ6013-83-52 02:08:54723 [facility] KiufcscHONPMF3027-27-85 02:08:40410Mrfknyeh LenmhelXTKZGL0142-32-82 02:08:004.29[facility] IjsujlsPGEMVP3191-79-05 02:08:0031[facility] HermannURINE AND WNCYI0850-92-96 02:08:006.0[facility]annURINE AND ZZVAD0761-42-10 02:08:00 Negative (06/10/16 8:08 PM)[facility]annURINE AND ETPIN8072-71-22 02:08:00 Trace *ABN*(06/10/16 8:08 PM)[facility] HermannURINE AND LDXCY7327-73-34 02:08:00 Negative *NA*(06/10/16 8:08 PM)[facility] HermannURINE AND TPYMZ5615-57-69 02:08:004[facility]annURINE AND IQXXV0077-93-19 02:08:005[facility] URINE AND SCSRO3233-18-05 02:08:00Small *ABN*(06/10/16 8:08 PM)[facility] URINE AND ZEJSA1866-70-18 02:08:001[facility]annURINE AND FTQUD3756-98-25 02:08:001.009[facility]annURINE AND BDAUU5715-26-73 02:08:00Yellow *NA*(06/10/16 8:08 PM)[facility]annURINE AND UWTTY9154-35-18 02:08:00Clear (06/10/16 8:08 PM)[facility]annURINE NMRK4743-98-95 02:08:00Negative (06/10/16 8:08 PM)[facility] HermannURINE VMOZ7063-52-75 02:08:82289.4[facility] HermannURINE QWUV8390-42-51 02:08:005.4[facility] HermannURINE PICT6434-16-19 02:08:0069.80[facility] HermannCARDIAC HMEDUEO7117-71-12 02:08:001.8[facility] HermannCARDIAC TVAZLDW2939-83-84 02:08:002.9[facility] HermannCARDIAC ENZYMES 2016-06-11 02:08:000.061[facility] HermannCARDIAC MMFBRHQ5442-93-97 02:08:55398 [facility] HermannCARDIAC GYFCJKH8989-19-55 02:08:00<0.02[facility] HermannCHEM JTQZP2876-50-24 02:08:000.2[facility] HermannCHEM SIBQQ6463-47-53 02:08:000.1 [facility] HermannCHEM FFZJK9333-04-31 02:08:000.1[facility] HermannCHEM PANEL 2016-06-11 02:08:005.7[facility] HermannCHEM BRXCD0369-76-69 02:08:000.5[facility] HermannCHEM NOMTP3603-57-41 02:08:001.8[facility] HermannCHEM RUTQG8589-67-65 02:08:003.9[facility] HermannCHEM NZWVR7994-07-60 02:08:0099[facility] HermannCHEM XDGAQ5504-04-75 02:08:0021[facility] HermannCHEM GIRID3012-10-03 02:08:0017 [facility] HermannDRUG ZEOUAA2457-47-32 02:08:00See Note *NA*(06/10/16 8:08 PM) [facility] HermannDRUG MDBNAY4501-04-22 02:08:00Negative *NA*(06/10/16 8:08 PM) [facility]annDR[facility] KVDVFN2875-54-90 02:08:00Negative *NA*(06/10/16 8:08 PM) [facility]annDR[facility] QHUFNR3739-65-66 02:08:00Negative *NA*(06/10/16 8:08 PM) [facility]annDR[facility] NRGCBB1156-88-60 02:08:00Negative *NA*(06/10/16 8:08 PM) [facility]annDR[facility] ERPAUB4020-15-81 02:08:00Negative *NA*(06/10/16 8:08 PM) [facility]annDR[facility] NULZAJ0375-58-99 02:08:00Negative *NA*(06/10/16 8:08 PM) [facility] PZRIPN6623-04-29 02:08:00Negative *NA*(06/10/16 8:08 PM) [facility] LSWCZT5758-12-74 02:08:00Negative *NA*(06/10/16 8:08 PM) [facility] RSBJYD7928-49-42 02:08:00Negative *NA*(06/10/16 8:08 PM) [facility] ZbmbcxwUQWEST3430-13-81 02:08:0075[facility] JgkbgswSNLGKO9531-50-22 02:08:0027[facility] RwbpdvxYNIGBI5619-02-28 02:08:18040Wqhbvaqd HermannLIPIDS 2016-06-11 02:08:69522Ynrghgfs FautvxtWTVYZW4120-59-03 02:08:004.29[facility] SarglsgZLNNHN5085-08-44 02:08:0031[facility] GZJKH3888-13-83 02:08:006.0[facility] DZOLR4203-24-37 02:08:00Negative (06/10/16 8:08 PM)[facility] LAYLF4326-35-85 02:08:00Trace *ABN*(06/10/16 8:08 PM)[facility] TDFIC6041-46-06 02:08:00Negative *NA*(06/10/16 8:08 PM)[facility] DRZML8334-90-68 02:08:004[facility] PMRSU3328-85-13 02:08:005[facility] RJVBI1915-71-25 02:08:00Small *ABN*(06/10/16 8:08 PM)[facility] BJKXM4841-46-67 02:08:001[facility] TBGJL5459-50-73 02:08:001.009[facility] VHBXF3666-87-44 02:08:00Yellow *NA*(06/10/16 8:08 PM)[facility] KJQEA2215-68-08 02:08:00Clear (06/10/16 8:08 PM)[facility] QEIG6636-44-76 02:08:00Negative (06/10/16 8:08 PM)[facility] CHEM 2016-06-11 02:08:30638.4[facility] ACEN0945-20-05 02:08:005.4[facility] XUUC8918-52-29 02:08:0069.80[facility] ENZYMES 2016-06-11 02:08:001.8[facility] SLAZWNI5284-10-14 02:08:002.9 [facility] HLFLCDD9382-45-00 02:08:000.061[facility] AZTAQCA6354-81-75 02:08:31963Iznmdekj HermannCARDIAC RORCHUK3468-76-36 02:08:00 <0.02[facility] RVCCU6139-16-55 02:08:000.2[facility] EEDUE2003-77-37 02:08:000.1[facility] ROYLG9629-43-89 02:08:000.1 [facility] IVBZU4134-50-12 02:08:005.7[facility] PANEL 2016-06-11 02:08:000.5[facility] CINWM3583-87-98 02:08:001.8[facility] FWYZL8306-25-04 02:08:003.9[facility] EAZGT7456-04-78 02:08:0099[facility] CPUDA2122-82-82 02:08:0021[facility] MMHAO9717-25-44 02:08:0017[facility] QGQGXE0482-87-44 02:08:00See Note *NA*(06/10/16 8:08 PM)[facility] YNWYKZ7869-32-16 02:08:00Negative *NA*(06/10/16 8:08 PM)[facility] WGRKVF2711-17-79 02:08:00Negative *NA*(06/10/16 8:08 PM)[facility] EQCKMZ3293-43-71 02:08:00Negative *NA*(06/10/16 8:08 PM)[facility] GCPZXP2272-74-45 02:08:00Negative *NA*(06/10/16 8:08 PM)[facility] RCUKLI8285-40-92 02:08:00Negative *NA*(06/10/16 8:08 PM)[facility] IKXNHH7028-44-08 02:08:00Negative *NA*(06/10/16 8:08 PM)[facility] KHVLTY5316-86-19 02:08:00Negative *NA*(06/10/16 8:08 PM)[facility] GLCLVW1660-84-79 02:08:00Negative *NA*(06/10/16 8:08 PM)[facility] BMLTDS4394-94-59 02:08:00Negative *NA*(06/10/16 8:08 PM)[facility] IfrfhhhWWSDWM3332-33-64 02:08:0075[facility] LznqwwmZNFDJV4328-81-30 02:08:0027[facility] YojzojoHVAVBZ7104-55-14 02:08:41930 [facility] PbutpnoRUNOOQ5345-74-26 02:08:38240Dvevlepb RcxrhvtZVCPQV9248-57-47 02:08:004.29[facility] BzyuhxqNSRMNW9635-23-63 02:08:0031[facility] ILEZG6617-94-01 02:08:006.0[facility] XHSFL2603-88-39 02:08:00 Negative (06/10/16 8:08 PM)[facility] NRBBS6891-03-76 02:08:00 Trace *ABN*(06/10/16 8:08 PM)[facility] OXWBX0781-18-87 02:08:00 Negative *NA*(06/10/16 8:08 PM)[facility] NHUEI8602-48-14 02:08:004[facility] IMDGR0343-95-97 02:08:005[facility] IXUWJ7714-67-84 02:08:00Small *ABN*(06/10/16 8:08 PM)[facility] VUFZX8963-57-78 02:08:001[facility] EPZWR4775-55-08 02:08:001.009[facility] SKUCL1876-79-38 02:08:00Yellow *NA*(06/10/16 8:08 PM)[facility] CKWNW2291-88-86 02:08:00Clear (06/10/16 8:08 PM)[facility] NLVU8330-20-69 02:08:00Negative (06/10/16 8:08 PM)[facility] KAAA5276-93-30 02:08:21597.4[facility] RVZD5536-57-20 02:08:005.4[facility] ETRY5212-72-28 02:08:0069.80[facility] YZRWWEK0094-36-52 02:08:001.8[facility] JCKFZNM7180-57-78 02:08:002.9[facility] ENZYMES 2016-06-11 02:08:000.061[facility] MFUSUYA5344-57-74 02:08:88484 [facility] NIKGQQO6625-12-33 02:08:00<0.02[facility]CHE[facility] YABXM0017-64-95 02:08:000.2[facility] UPQAB0280-68-00 02:08:000.1 [facility] XXSLS6231-06-79 02:08:000.1[facility]annCHE[facility] PANEL 2016-06-11 02:08:005.7[facility] HCJSB6184-94-28 02:08:000.5[facility] MERNK1646-77-53 02:08:001.8[facility] CHTTA2336-96-30 02:08:003.9[facility] OMPDS5824-29-21 02:08:0099[facility] BRDEK9986-85-13 02:08:0021[facility] HSZTK5496-10-49 02:08:0017 [facility] HWTHUJ1256-87-80 02:08:00See Note *NA*(06/10/16 8:08 PM) [facility] VTILQO9938-19-83 02:08:00Negative *NA*(06/10/16 8:08 PM) [facility] CQAFSJ2800-86-55 02:08:00Negative *NA*(06/10/16 8:08 PM) [facility] OXOQQS1141-83-94 02:08:00Negative *NA*(06/10/16 8:08 PM) [facility] GXRJPZ1716-65-67 02:08:00Negative *NA*(06/10/16 8:08 PM) [facility] HTMRHD8738-89-41 02:08:00Negative *NA*(06/10/16 8:08 PM) [facility] GPNNJI6863-00-61 02:08:00Negative *NA*(06/10/16 8:08 PM) [facility] TURRRZ6508-87-05 02:08:00Negative *NA*(06/10/16 8:08 PM) [facility] TDDJOU9384-03-86 02:08:00Negative *NA*(06/10/16 8:08 PM) [facility] AQTFHG0490-21-11 02:08:00Negative *NA*(06/10/16 8:08 PM) [facility] JztbmqfISHPUE7531-84-81 02:08:0075[facility] GpmkffaMEGWFU6149-23-31 02:08:0027[facility] KyqpbdmGZWKCR2310-26-11 02:08:98796Umtpbuse HermannLIPIDS 2016-06-11 02:08:76275Rhnocsgy UmfnazcBZLWGC8277-29-02 02:08:004.29[facility] NscwqmlDYEJYG3116-25-47 02:08:0031[facility] AND QEGMU5294-73-89 02:08:006.0[facility] MCNEB2728-15-23 02:08:00Negative (06/10/16 8:08 PM)[facility] FYNXY6118-70-77 02:08:00Trace *ABN*(06/10/16 8:08 PM)[facility] YZYZY1897-37-92 02:08:00Negative *NA*(06/10/16 8:08 PM)[facility] WQMXY1195-04-14 02:08:004[facility]INE AND CLUGA0177-69-76 02:08:005[facility] THSPF9418-36-90 02:08:00Small *ABN*(06/10/16 8:08 PM)[facility] TZXTP9621-51-44 02:08:001[facility] EQFGB2087-12-50 02:08:001.009[facility]INE AND BXBIP5271-49-26 02:08:00Yellow *NA*(06/10/16 8:08 PM)[facility]INE AND CUXSI5606-38-98 02:08:00Clear (06/10/16 8:08 PM)[facility] DYMH6503-29-64 02:08:00Negative (06/10/16 8:08 PM)[facility] CHEM 2016-06-11 02:08:84835.4[facility] FMHX1710-86-96 02:08:005.4[facility] CLFA8285-70-07 02:08:0069.80[facility] HermannCARDIAC ENZYMES 2016-06-11 02:08:001.8[facility]annCARDIAC PDNGEPU4367-94-19 02:08:002.9 [facility]annCARDIAC SCLZGSV2177-17-71 02:08:000.061[facility]annCARDIAC UUUIUGY6607-13-63 02:08:52701Xelafypo HermannCARDIAC RAOLKKB6077-20-78 02:08:00 <0.02[facility] HermannCHEM YIDCQ3945-44-03 02:08:000.2[facility]annCHEM HTJET0833-42-70 02:08:000.1[facility]annCHEM YFBCX4628-95-61 02:08:000.1 [facility]annCHEM SKDQR5924-39-55 02:08:005.7[facility] HermannCHEM PANEL 2016-06-11 02:08:000.5[facility]annCHEM MMHQX5492-92-67 02:08:001.8[facility]annCHEM VCQOG0110-00-33 02:08:003.9[facility]annCHEM FKEVF3046-08-09 02:08:0099[facility]annCHEM SQBWN7854-88-47 02:08:0021[facility]annCHEM CJXTJ8505-56-69 02:08:0017[facility] HermannDRUG XYBCGR5799-78-82 02:08:00See Note *NA*(06/10/16 8:08 PM)[facility]annDR[facility] UXHMRP3395-32-92 02:08:00Negative *NA*(06/10/16 8:08 PM)[facility]annDR[facility] XUBDKF6627-94-13 02:08:00Negative *NA*(06/10/16 8:08 PM)[facility]annDR[facility] HXDAYH4236-76-02 02:08:00Negative *NA*(06/10/16 8:08 PM)[facility]annDR[facility] DPGOXN0306-37-80 02:08:00Negative *NA*(06/10/16 8:08 PM)[facility]annDR[facility] VPCUNQ6401-75-17 02:08:00Negative *NA*(06/10/16 8:08 PM)[facility]DR[facility] GFXIHF0218-30-19 02:08:00Negative *NA*(06/10/16 8:08 PM)[facility]annDR[facility] EBAASI1482-69-31 02:08:00Negative *NA*(06/10/16 8:08 PM)[facility]annDR[facility] TTDIBM4747-42-86 02:08:00Negative *NA*(06/10/16 8:08 PM)[facility]annDR[facility] JPPVKB1386-71-47 02:08:00Negative *NA*(06/10/16 8:08 PM)[facility] RekdmkuMFEHRA4256-04-94 02:08:0075[facility] JhkyyceVWFVHE1308-74-53 02:08:0027[facility] YuffemvQTJNLI8268-34-27 02:08:90738 [facility] SkfteozQEAHAK9805-11-79 02:08:56182Cwydsxka NbmgbjsJWBSXX1742-92-83 02:08:004.29[facility] XopcxnjTPNHYK6986-51-20 02:08:0031[facility] AND ESYUH6320-07-95 02:08:006.0[facility] AELSL8073-73-54 02:08:00 Negative (06/10/16 8:08 PM)[facility] NIHWT1402-87-43 02:08:00 Trace *ABN*(06/10/16 8:08 PM)[facility] ZDYVE6771-83-23 02:08:00 Negative *NA*(06/10/16 8:08 PM)[facility] DNUWL1280-43-44 02:08:004[facility] SOOSP1369-90-70 02:08:005[facility] AND CFDAQ6805-24-85 02:08:00Small *ABN*(06/10/16 8:08 PM)[facility]INE AND NUHWW5901-64-75 02:08:001[facility] AND SMAGN4352-25-44 02:08:001.009[facility] NXBNI3452-92-61 02:08:00Yellow *NA*(06/10/16 8:08 PM)[facility] ILUCF8919-90-09 02:08:00Clear (06/10/16 8:08 PM)[facility] HJIL5359-47-66 02:08:00Negative (06/10/16 8:08 PM)[facility] DBOR1206-48-20 02:08:02821.4[facility] AZCU0662-92-40 02:08:005.4[facility] HEUR8831-60-05 02:08:0069.80[facility] HermannCARDIAC SOGXZJF2929-22-84 02:08:001.8[facility] HermannCARDIAC SSRUHOV5934-14-69 02:08:002.9[facility] HermannCARDIAC ENZYMES 2016-06-11 02:08:000.061[facility]annCARDIAC ZBTTERI0897-68-94 02:08:83032 [facility]annCARDIAC PIIZKWJ7742-10-45 02:08:00<0.02[facility] HermannCHEM XIFIS8011-84-52 02:08:000.2[facility]annCHEM WSWZD9499-81-82 02:08:000.1 [facility]annCHEM YZKWW0926-71-34 02:08:000.1[facility] HermannCHEM PANEL 2016-06-11 02:08:005.7[facility] HermannCHEM NZFLT2128-75-41 02:08:000.5[facility]annCHEM PDLWP1761-58-53 02:08:001.8[facility]annCHEM IPKKZ6445-83-31 02:08:003.9[facility]annCHEM TVLJW7856-08-10 02:08:0099[facility]annCHEM EIGJI3764-55-46 02:08:0021[facility]annCHEM UVLBQ0621-36-85 02:08:0017 [facility]annDR[facility] XHBWWP4972-03-49 02:08:00See Note *NA*(06/10/16 8:08 PM) [facility]DR[facility] NOKZLS8184-73-21 02:08:00Negative *NA*(06/10/16 8:08 PM) [facility] XDEULO5821-00-57 02:08:00Negative *NA*(06/10/16 8:08 PM) [facility] FQNROF7364-71-01 02:08:00Negative *NA*(06/10/16 8:08 PM) [facility] XVVEBQ5304-63-48 02:08:00Negative *NA*(06/10/16 8:08 PM) [facility]DR[facility] CWGMFL5027-53-08 02:08:00Negative *NA*(06/10/16 8:08 PM) [facility] SCRUFG0960-38-58 02:08:00Negative *NA*(06/10/16 8:08 PM) [facility] GUXCBT3916-76-91 02:08:00Negative *NA*(06/10/16 8:08 PM) [facility] HZHHPU5436-59-31 02:08:00Negative *NA*(06/10/16 8:08 PM) [facility]DR[facility] IAUNBR3047-61-95 02:08:00Negative *NA*(06/10/16 8:08 PM) [facility] WobjcgxZESGJF8817-21-10 02:08:0075[facility] CdxzorpOHVXKF2527-06-00 02:08:0027[facility] AtrgmfkOMZTLU5328-79-24 02:08:72071Esnfpxwq HermannLIPIDS 2016-06-11 02:08:13373Kdmipzzg YwfaesqIFJGHW7257-58-94 02:08:004.29[facility] SkptsedXFZRVB9455-06-55 02:08:0031[facility]UR[facility] AND HWBVN7495-65-77 02:08:006.0[facility] UBAAG6658-73-80 02:08:00Negative (06/10/16 8:08 PM)[facility] BCCEX7460-76-57 02:08:00Trace *ABN*(06/10/16 8:08 PM)[facility] VFACP5025-25-34 02:08:00Negative *NA*(06/10/16 8:08 PM)[facility] CTZCU6112-88-36 02:08:004[facility] AND WUFAU4461-28-34 02:08:005[facility] AND VVNOX5690-47-69 02:08:00Small *ABN*(06/10/16 8:08 PM)[facility] XVODG3738-19-50 02:08:001[facility] NOUFA5324-93-69 02:08:001.009[facility]INE AND IEGXK3763-68-84 02:08:00Yellow *NA*(06/10/16 8:08 PM)[facility] AMPFI7010-20-16 02:08:00Clear (06/10/16 8:08 PM)[facility] WMEN6696-99-91 02:08:00Negative (06/10/16 8:08 PM)[facility] CHEM 2016-06-11 02:08:09334.4[facility]UR[facility] CFMR4607-44-43 02:08:005.4[facility] HFZJ1239-26-69 02:08:0069.80[facility] HermannCARDIAC ENZYMES 2016-06-10 16:53:331973Ycgcvmca HermannCARDIAC IVWQSVS8675-62-01 16:53:00 <0.02[facility] HermannCARDIAC FFVYHGN9864-35-53 16:53:149483Yecqkfpc [place] CARDIAC ZRFCSAU4765-79-83 16:53:00<0.02[facility] HermannCARDIAC ENZYMES 2016-06-10 16:53:303567Gutoqoxt HermannCARDIAC DBAZAFW6779-68-39 16:53:00 <0.02[facility]annCARDIAC LPEDRBN8731-22-65 16:53:956112Iczbjpef [place] CARDIAC YNTEUSK4572-09-51 16:53:00<0.02[facility] HermannCARDIAC ENZYMES 2016-06-10 16:53:390274Srnnsnkc HermannCARDIAC PYCHONY2559-05-08 16:53:00 <0.02[facility]annCARDIAC KNAGZOW6987-14-37 16:53:252825Nscoffzx Vin CARDIAC TPJLTNP4745-67-86 16:53:00<0.02[facility] HermannCHEM VUFEO7254-95-84 13:02:000.9[facility] HermannCHEM VVUPK3024-54-34 13:02:000.9[facility] HermannCHEM EQARM6417-85-00 13:02:000.9[facility] HermannCHEM LRJWA4883-96-17 13:02:000.9 [facility]annCHEM QIJPI5491-75-72 13:02:000.9[facility] HermannCHEM PANEL 2014-06-26 13:02:000.9[facility] DqhwwdtOIDCFJNTJB1923-54-22 12:29:4410[facility] AxenumnLYJGZVUKOE9741-22-78 12:29:4410[facility] NjffkrsALZTLYYCKW8531-73-18 12:29:4410[facility] BidcnvvYLCRDTNBJU1574-94-38 12:29:4410[facility] IFMWXRLRIJ0960-30-02 12:29:4410[facility] ZjynqkmKWBNUXFIKI5890-20-12 12:29:4410 [facility] SzfdhdmDHFPGIATMEKQB4643-39-22 11:21:271[facility] HermannENDOCRINOLOGY 2014-06-26 11:21:271[facility] XtlzeyuLWHYLOKTSKMHW6781-54-70 11:21:271[facility] VrkrvakDFMCKGKXHRXHV1322-76-83 11:21:271[facility] FerbwtaICRNHOIBAYAHZ3348-53-19 11:21:271[facility] FgrlnocLBBRZJXEXTYMF6107-77-40 11:21:271[facility] HermannCHEM OSSYI9160-22-13 11:21:003.2[facility] HermannCHEM QCEYB7833-72-69 11:21:006.6 [facility]annCHEM EKJJO0248-24-94 11:21:000.6[facility] HermannCHEM PANEL 2014-06-26 11:21:0059[facility] HermannCHEM YFNCT6354-57-42 11:21:0011[facility] HermannCHEM ROJNR6677-71-14 11:21:0017[facility] HermannCHEM WOLPZ1349-38-77 11:21:0099[facility] HermannCHEM RITWI4540-49-78 11:21:82951Fhqihkio HermannCHEM YZIYR4885-24-04 11:21:003.4[facility] HermannCHEM YCQMX9902-43-66 11:21:0011 [facility]annCHEM LKXYP6784-37-93 11:21:000.8[facility] HermannCHEM PANEL 2014-06-26 11:21:48086Eyjyyizp HermannCHEM IVFVW2288-46-20 11:21:0094[facility] HermannCHEM MBNEN0686-68-47 11:21:009.1[facility] HermannCHEM RVHJY6013-02-70 11:21:0024[facility] HermannCHEM STWYT9937-46-43 11:21:000.9[facility] HermannCHEM MWHLO2534-03-88 11:21:003.4[facility] HermannCHEM GSDLT9859-34-55 11:21:0014 [facility]annCHEM MQXIH2241-57-80 11:21:0019.4[facility] HermannCHEM PANEL 2014-06-26 11:21:0081[facility] WjmssudINAHVJRULD4049-59-98 11:21:000.0[facility] BylylpgSMHHZTSJPI4843-00-20 11:21:001+ *ABN*(06/26/14 5:21 AM)[facility] WDZSCNXNDF1750-98-38 11:21:000.6[facility] BbftmbkQESRBOQZJR7506-81-04 11:21:000.1 [facility] YrwdsjrHAPAQFPUXJ0508-02-62 11:21:002.5[facility] HermannHEMATOLOGY 2014-06-26 11:21:0063.3[facility] KhtcwobWJNRHGQMMW6519-94-70 11:21:005.6[facility] EvuqmovHABLHVSXRW6697-27-68 11:21:000.0[facility] HseivycQRAXEKPUVA9054-31-19 11:21:000.9[facility] QsrmjvdTQFHHOJJYJ0069-68-12 11:21:007.0[facility] GJTDXRCKTB7348-19-50 11:21:0028.8[facility] SioabxeOVFQSFYOSS0813-29-47 11:21:00 8.8[facility] RuyisjsJWTSHCLFBP5958-30-23 11:21:005.19[facility] HermannHEMATOLOGY 2014-06-26 11:21:0014.4[facility] CifugosTSEJDXTYZN9557-97-21 11:21:0043.1[facility] AbhkczdNVJRXBAYAZ7083-07-49 11:21:0083.1[facility] UiceeuyCQSDXOUNWH2858-66-67 11:21:00 Test Item Value Reference Range Interpretation Comments MCH (test code = MCH) 27.8 pg 27.0-31.0 [facility] MoelroqLJSTEVZCYQ6509-70-29 11:21:0013.1[facility] HermannHEMATOLOGY 2014-06-26 11:21:0033.5[facility] LemrkenSJYFXSEMUN4669-68-21 11:21:33397Fqthjuwl WojkiwwLCRQJMWYMO9149-18-83 11:21:0010.4[facility] HermannCHEM XCHXY2390-36-17 11:21:003.2[facility] HermannCHEM FWPQZ3407-30-96 11:21:006.6[facility] HermannCHEM VSRKK3102-80-80 11:21:000.6[facility] HermannCHEM TLAQG8569-08-73 11:21:0059 [facility] HermannCHEM UKQZA6123-64-09 11:21:0011[facility] HermannCHEM PANEL 2014-06-26 11:21:0017[facility] HermannCHEM ZBDPV0270-43-62 11:21:0099[facility] HermannCHEM NWMJF0336-52-00 11:21:97611Tgfakbtb HermannCHEM SNKMC2989-03-17 11:21:003.4[facility] HermannCHEM WRRLQ5182-14-23 11:21:0011[facility] HermannCHEM JZBYF7476-68-26 11:21:000.8[facility] HermannCHEM APUIH3323-47-06 11:21:26426 [facility]annCHEM DXGVS6604-20-68 11:21:0094[facility] HermannCHEM PANEL 2014-06-26 11:21:009.1[facility] HermannCHEM XSHXA1177-32-29 11:21:0024[facility] HermannCHEM IWLNB7769-32-16 11:21:000.9[facility] HermannCHEM WMCAH8785-70-77 11:21:003.4[facility] HermannCHEM FJAGS5676-04-20 11:21:0014[facility]annCHEM CAUCW0306-76-19 11:21:0019.4[facility] HermannCHEM UKNPA3581-76-90 11:21:0081 [facility] WppoafbBZNLSJLKRE7118-18-29 11:21:000.0[facility] HermannHEMATOLOGY 2014-06-26 11:21:001+ *ABN*(06/26/14 5:21 AM)[facility] ArikbeySYNNVKJDOM3103-17-69 11:21:000.6[facility] SbbqabmIPMDWHKGMM6757-11-13 11:21:000.1[facility] ICYBXSMUUE4811-59-41 11:21:002.5[facility] ZsjshrpUMKCFDKCRP9085-87-24 11:21:00 63.3[facility] RspfdqrKVRGWYAZOM9500-04-02 11:21:005.6[facility] HermannHEMATOLOGY 2014-06-26 11:21:000.0[facility] ZrsljxuAOIFPNRWOQ7837-65-71 11:21:000.9[facility] QjqebwgLUJJIMMTKQ8681-85-92 11:21:007.0[facility] QflmpcjFAWAXKJTIX4903-77-62 11:21:0028.8[facility] VnylnleDZWNMFFKPY4296-31-04 11:21:008.8[facility] WCUKNLUDNL8968-59-10 11:21:005.19[facility] MjwkvdvQQQWBZQMWO5212-00-78 11:21:00 14.4[facility] ZldnczbPNSWIUPYSC5658-75-90 11:21:0043.1[facility] HermannHEMATOLOGY 2014-06-26 11:21:0083.1[facility] KsciquhTQPNUQOQAC8008-57-73 11:21:00 Test Item Value Reference Range Interpretation Comments MCH (test code = MCH) 27.8 pg 27.0-31.0 [facility] CrrqsyxYWCVBIEDZX7546-38-58 11:21:0013.1[facility]annHEMATOLOGY 2014-06-26 11:21:0033.5[facility] VafcwivYIINMUMKZU6400-24-31 11:21:29436Vchxufki FxingddOURWTLAJRI9505-97-77 11:21:0010.4[facility] HermannCHEM FMGFE1792-37-01 11:21:003.2[facility] HermannCHEM LRIDY0440-72-97 11:21:006.6[facility] HermannCHEM MBOBX4920-69-45 11:21:000.6[facility] HermannCHEM RXCGX6130-61-66 11:21:0059 [facility]annCHEM DSIQY7819-26-80 11:21:0011[facility] HermannCHEM PANEL 2014-06-26 11:21:0017[facility] HermannCHEM UFQLY2130-63-86 11:21:0099[facility]annCHEM SHSHK2271-08-75 11:21:97878Wcjdhxgv HermannCHEM XWMEI4391-74-65 11:21:003.4[facility] HermannCHEM TIABP9736-00-15 11:21:0011[facility] HermannCHEM PQTQR9540-87-32 11:21:000.8[facility] HermannCHEM VFETX6249-92-26 11:21:78192 [facility]annCHEM ATPKM6638-64-85 11:21:0094[facility] HermannCHEM PANEL 2014-06-26 11:21:009.1[facility] HermannCHEM VOLKC6680-04-74 11:21:0024[facility]annCHEM THDPA3875-93-62 11:21:000.9[facility] HermannCHEM IAXPT3199-71-45 11:21:003.4[facility] HermannCHEM CFMCW0064-60-75 11:21:0014[facility] HermannCHEM LOKUA7013-09-25 11:21:0019.4[facility] HermannCHEM YBGWS3884-46-74 11:21:0081 [facility] UpglrvlPHVCKOBWAP7548-45-33 11:21:000.0[facility] HermannHEMATOLOGY 2014-06-26 11:21:001+ *ABN*(06/26/14 5:21 AM)[facility] OnhimfzLBIXIEQLWG0806-27-50 11:21:000.6[facility] KsaenwbTWPHKXCUHM7593-10-21 11:21:000.1[facility] XNYIJNYJXB1588-36-71 11:21:002.5[facility] JotkosnVMMJFWDWBM6178-84-19 11:21:00 63.3[facility] NbiopkdREGAZOFBVU5585-09-43 11:21:005.6[facility] HermannHEMATOLOGY 2014-06-26 11:21:000.0[facility] SyinizoNIWXWCSXLK2460-08-40 11:21:000.9[facility] AsqackbGHLEZTSRUK5797-35-49 11:21:007.0[facility] XupzndfYPLIACYIPR0700-65-52 11:21:0028.8[facility] EnphfpsRAVHQVYOXF8825-61-43 11:21:008.8[facility] UYZPEHONWS2253-11-06 11:21:005.19[facility] YylkhxgLKEXBELIBZ9483-83-75 11:21:00 14.4[facility] YxnhtrlYTZZURKNZL9865-37-76 11:21:0043.1[facility] HermannHEMATOLOGY 2014-06-26 11:21:0083.1[facility] YpnswuqLDHLLWAUPL9900-55-95 11:21:00 Test Item Value Reference Range Interpretation Comments MCH (test code = MCH) 27.8 pg 27.0-31.0 [facility] ArzroowZLKBPVUWBA1855-67-18 11:21:0013.1[facility] HermannHEMATOLOGY 2014-06-26 11:21:0033.5[facility] NgwlubfTVNSQNTDCP8374-16-32 11:21:53746Atzixhtd MxqpxjnBXNOOOHRWN5394-37-79 11:21:0010.4[facility] HermannCHEM DMRZE7006-08-95 11:21:003.2[facility] HermannCHEM QQRQY4349-77-58 11:21:006.6[facility] HermannCHEM PQJXT8586-34-86 11:21:000.6[facility] HermannCHEM XWOJV4347-80-95 11:21:0059 [facility]annCHEM AFEQM1121-40-46 11:21:0011[facility] HermannCHEM PANEL 2014-06-26 11:21:0017[facility] HermannCHEM JIPRA3882-61-53 11:21:0099[facility] HermannCHEM YWDCL8401-87-27 11:21:78382Poakgivl HermannCHEM LUNXP5796-14-11 11:21:003.4[facility] HermannCHEM PYNDZ2132-25-66 11:21:0011[facility]annCHEM JCSCN7652-50-96 11:21:000.8[facility] HermannCHEM ALOHR1649-26-44 11:21:84116 [facility]annCHEM RUDET3433-75-88 11:21:0094[facility] HermannCHEM PANEL 2014-06-26 11:21:009.1[facility] HermannCHEM BPCFG0188-50-27 11:21:0024[facility] HermannCHEM JKYZI5815-82-20 11:21:000.9[facility] HermannCHEM QXUOD6352-82-38 11:21:003.4[facility] HermannCHEM CFKRV2916-23-86 11:21:0014[facility] HermannCHEM GXHFR4302-47-35 11:21:0019.4[facility] HermannCHEM RFJBJ7255-89-58 11:21:0081 [facility] AfdgqciERFNEZXWPS8686-59-80 11:21:000.0[facility] HermannHEMATOLOGY 2014-06-26 11:21:001+ *ABN*(06/26/14 5:21 AM)[facility] IadtticNVPZYUHGFZ4758-83-15 11:21:000.6[facility] OnkgcmnYCAOFPVACA9297-83-66 11:21:000.1[facility] DZJKVAPCGI6816-24-03 11:21:002.5[facility] WdykuqbIZELBWVJQV9976-93-99 11:21:00 63.3[facility] JidsxptXFHRHINMMX4552-77-64 11:21:005.6[facility] HermannHEMATOLOGY 2014-06-26 11:21:000.0[facility] TumejdiYITKZZNEML4317-38-07 11:21:000.9[facility] YmdlpjaCIHEOTKGXV0309-95-34 11:21:007.0[facility] IithiquVENFQSYVOR9976-99-00 11:21:0028.8[facility] ZmrlkviFPOLQCPDCF5791-00-61 11:21:008.8[facility] RHMSRTXSCR5715-78-44 11:21:005.19[facility] GvugxanNBIIQXACQY7048-75-86 11:21:00 14.4[facility] CmnpmyvIYOJCAFDDE4179-59-43 11:21:0043.1[facility] HermannHEMATOLOGY 2014-06-26 11:21:0083.1[facility] GqcjkfzOAARDIYBGE0990-93-31 11:21:00 Test Item Value Reference Range Interpretation Comments MCH (test code = MCH) 27.8 pg 27.0-31.0 [facility] MfqpltnSPSKVPHSAJ8764-51-86 11:21:0013.1[facility] HermannHEMATOLOGY 2014-06-26 11:21:0033.5[facility] MqnzxskZGUVNFIABG5405-90-62 11:21:56806Uubnklro YtluofrOFGWAWQDWE0777-39-48 11:21:0010.4[facility] HermannCHEM JWFLS3672-82-81 11:21:003.2[facility] HermannCHEM CHKYQ9615-86-06 11:21:006.6[facility] HermannCHEM WMPXX3452-86-98 11:21:000.6[facility] HermannCHEM FKEKN1714-38-44 11:21:0059 [facility] HermannCHEM TCFAA2489-95-85 11:21:0011[facility] HermannCHEM PANEL 2014-06-26 11:21:0017[facility] HermannCHEM MYLWG5445-38-32 11:21:0099[facility] HermannCHEM SBHHZ1622-59-72 11:21:98229Idqnhxzi HermannCHEM CBXQS7789-77-40 11:21:003.4[facility] HermannCHEM SRGDR7172-10-02 11:21:0011[facility] HermannCHEM CYUFI3629-69-34 11:21:000.8[facility] HermannCHEM NCYPC0937-17-71 11:21:16380 [facility]annCHEM UKGZR4037-27-00 11:21:0094[facility] HermannCHEM PANEL 2014-06-26 11:21:009.1[facility] HermannCHEM DJQBN7874-64-89 11:21:0024[facility] HermannCHEM IYBJE2296-23-24 11:21:000.9[facility] HermannCHEM ERPBA1392-94-67 11:21:003.4[facility] HermannCHEM WNWVC9955-13-78 11:21:0014[facility]annCHE[facility] ZUAXU3226-11-42 11:21:0019.4[facility]annCHE[facility] SCYYH0109-97-21 11:21:0081 [facility] UgrvfgjJJNOCQJWVK4478-39-84 11:21:000.0[facility]annHEMATOLOGY 2014-06-26 11:21:001+ *ABN*(06/26/14 5:21 AM)[facility] CqumxmwNHKMEFBNPT6590-51-98 11:21:000.6[facility] YmokbfiIGGIGBOPSF0503-48-26 11:21:000.1[facility] XZJGNHVOUJ9042-68-31 11:21:002.5[facility] BsauvwtSTFWLNSSFF6453-33-00 11:21:00 63.3[facility] TzkqkjeOWPVDLNRRW3157-77-03 11:21:005.6[facility]annHEMATOLOGY 2014-06-26 11:21:000.0[facility] CadpguqWLBEXTSGME8660-19-33 11:21:000.9[facility] NrvuofkDQOCEMUXUW4267-58-02 11:21:007.0[facility] RqruiyvIZBTOTPRBM1400-11-20 11:21:0028.8[facility] RkgrbazYPXTUNNGVE4142-30-49 11:21:008.8[facility] Vin MGJUOGNRWC1530-97-88 11:21:005.19[facility] JukjvozPCIYCFLGFG7544-98-71 11:21:00 14.4[facility] GyylflcBSDLWGCPPS5599-53-56 11:21:0043.1[facility]annHEMATOLOGY 2014-06-26 11:21:0083.1[facility] GtisejcMWOIDEURHU9300-21-02 11:21:00 Test Item Value Reference Range Interpretation Comments MCH (test code = MCH) 27.8 pg 27.0-31.0 [facility] OpnkzlsNSYCZCEBBS8129-07-35 11:21:0013.1[facility]annHEMATOLOGY 2014-06-26 11:21:0033.5[facility] CmovhssOSNZMLKWHD7103-47-07 11:21:72249Czylsatm CzhjcdiKKZASPZTRP6149-71-91 11:21:0010.4[facility]annCHEM YAWUP6290-05-61 11:21:003.2[facility]annCHEM BGTGN4145-88-39 11:21:006.6[facility]annCHE[facility] IGUQB7191-89-81 11:21:000.6[facility]annCHE[facility] BZSUS6473-62-97 11:21:0059 [facility]CHE[facility] RRQIY1896-53-16 11:21:0011[facility]annCHEM PANEL 2014-06-26 11:21:0017[facility]annCHE[facility] ZPAUS3657-09-48 11:21:0099[facility]annCHE[facility] PXBFG4160-08-55 11:21:72392Yblblucs HermannCHEM PUVWT1871-47-17 11:21:003.4[facility]annCHEM NVWXX5108-05-24 11:21:0011[facility]annCHE[facility] PJEJX0716-43-32 11:21:000.8[facility]annCHEM MJDYH3408-02-70 11:21:54078 [facility]CHE[facility] DACCJ5772-21-94 11:21:0094[facility]annCHEM PANEL 2014-06-26 11:21:009.1[facility]annCHE[facility] XNFTV3351-71-96 11:21:0024[facility]annCHE[facility] POAVX9519-96-56 11:21:000.9[facility]annCHE[facility] HEWVW5938-10-94 11:21:003.4[facility]annCHEM JJSGD9073-06-54 11:21:0014[facility]annCHE[facility] NYYDR3047-71-68 11:21:0019.4[facility]annCHEM LUKSE6406-92-00 11:21:0081 [facility] EcuknavMQTJYJXRTI3485-81-88 11:21:000.0[facility]annHEMATOLOGY 2014-06-26 11:21:001+ *ABN*(06/26/14 5:21 AM)[facility] YkiovkkLYSFKVTUZO5899-74-03 11:21:000.6[facility] UwljtoyJSGFETXQMR5529-92-95 11:21:000.1[facility] Vin GAYIPOJURV5032-17-86 11:21:002.5[facility] LomzvsbAMKKJHKRSX5420-94-16 11:21:00 63.3[facility] WeadoygMMDDFNVQGX0642-79-16 11:21:005.6[facility]annHEMATOLOGY 2014-06-26 11:21:000.0[facility] YezagbrGVBSPFTLPX9022-85-42 11:21:000.9[facility] ZjcuwqhEMEDHILREW7798-95-57 11:21:007.0[facility] IpnkdmbQSRPOXEJEX1737-81-77 11:21:0028.8[facility] KebwmpvGZLZHFSLIO4755-55-56 11:21:008.8[facility] Vin PSLNHENCKN2724-06-02 11:21:005.19[facility] EdznhodAOMSMPWOWY5429-36-25 11:21:00 14.4[facility] PzfulblCCPBMUGDVZ4409-63-96 11:21:0043.1[facility]annHEMATOLOGY 2014-06-26 11:21:0083.1[facility] WbtwpmyJOFEDOXQYC1330-70-50 11:21:00 Test Item Value Reference Range Interpretation Comments MCH (test code = MCH) 27.8 pg 27.0-31.0 [facility] MsvuzzbOACVHDSIYS4281-77-22 11:21:0013.1[facility]annHEMATOLOGY 2014-06-26 11:21:0033.5[facility] GdfulhjFCWFJDZFON8349-04-14 11:21:85016Uxzokbps BaoehwcJZBEDHJOSN9998-38-63 11:21:0010.4[facility] TmcwyhdVBMYNBRPBP4482-36-40 04:48:55Performed (04/14/2013 23:48:55)[facility] VvgthgdMUUPKGIFKS0038-88-76 04:48:55Negative *NA*(04/14/2013 23:48:55)[facility] HvppnmcYOTBKNQVTK6917-01-36 04:48:55Trace *ABN*(04/14/2013 23:48:55)[facility] WdfkxkvIXFGJVPWET2294-24-33 04:48:55Negative (04/14/2013 23:48:55)[facility] VkqqtreJDGQFPRNDL6391-19-35 04:48:550.2[facility] BhfhyslVZOUMALZDA5589-39-79 04:48:55Negative (04/14/2013 23:48:55)[facility] NcsxjboDXBEVVTEFP0841-82-45 04:48:55Negative (04/14/2013 23:48:55)[facility] QyfnlkmXORHISVDFF7907-48-81 04:48:55Clear (04/14/2013 23:48:55)[facility] AcivjgtIQFVZZQFQJ9796-33-91 04:48:55Yellow *NA*(04/14/2013 23:48:55)[facility] WuqhqmvGWTXDPBZYD4565-86-46 04:48:55 Test Item Value Reference Range Interpretation Comments UA pH (test code = UA pH) 7.0 1 5.0-8.0 N [facility] RsezsfwUYMFIUMGOY7811-92-26 04:48:55 Test Item Value Reference Range Interpretation Comments UA Spec Grav (test code = UA Spec 1.025 1 N Grav) [facility] IawsfjvFKROVOYGEB1940-79-27 04:48:55Trace *ABN*(04/14/2013 23:48:55) [facility] CcmfqneGIYXYEBICF8785-64-79 04:48:55Performed (04/14/2013 23:48:55) [facility] VshpnjvBLZRCOTFYE1260-65-00 04:48:55Negative *NA*(04/14/2013 23:48:55) [facility] QobwxzpQHPYIISZPY9344-58-94 04:48:55Trace *ABN*(04/14/2013 23:48:55) [facility] ZhohomuAFNEKOGOKZ4630-65-53 04:48:55Negative (04/14/2013 23:48:55) [facility] AvlwpafVZLWYQBIXG0758-78-61 04:48:550.2[facility] HermannURINALYSIS 2013-04-15 04:48:55Negative (04/14/2013 23:48:55)[facility]annURINALYSIS 2013-04-15 04:48:55Negative (04/14/2013 23:48:55)[facility]annURINALYSIS 2013-04-15 04:48:55Clear (04/14/2013 23:48:55)[facility]annURINALYSIS 2013-04-15 04:48:55Yellow *NA*(04/14/2013 23:48:55)[facility]annURINALYSIS 2013-04-15 04:48:55 Test Item Value Reference Range Interpretation Comments UA pH (test code = UA pH) 7.0 1 5.0-8.0 N [facility] UbrahnwZDSQVMXCOR8088-10-76 04:48:55 Test Item Value Reference Range Interpretation Comments UA Spec Grav (test code = UA Spec 1.025 1 N Grav) [facility] AbqskwzCPZPDWNCGD2884-23-13 04:48:55Trace *ABN*(04/14/2013 23:48:55) [facility] FeydkqqLNWLFDEQPJ1538-74-85 04:48:55Performed (04/14/2013 23:48:55) [facility] MxcfoezEYFGXPZFWA0139-00-49 04:48:55Negative *NA*(04/14/2013 23:48:55) [facility] PuytlyxVMVXYIZCZZ8021-22-05 04:48:55Trace *ABN*(04/14/2013 23:48:55) [facility] EmzfmknPDKZHJMGOT4244-10-57 04:48:55Negative (04/14/2013 23:48:55) [facility] VcflejpIMPMFCRAUO8681-13-75 04:48:550.2[facility]annURINALYSIS 2013-04-15 04:48:55Negative (04/14/2013 23:48:55)[facility] 2013-04-15 04:48:55Negative (04/14/2013 23:48:55)[facility] 04:48:55Clear (04/14/2013 23:48:55)[facility] HermannURINALYSIS 2013-04-15 04:48:55Yellow *NA*(04/14/2013 23:48:55)[facility]UR[facility] 2013-04-15 04:48:55 Test Item Value Reference Range Interpretation Comments UA pH (test code = UA pH) 7.0 1 5.0-8.0 N [facility] ZvijvimIHVSVFSCSU3165-61-01 04:48:55 Test Item Value Reference Range Interpretation Comments UA Spec Grav (test code = UA Spec 1.025 1 N Grav) [facility] IllcdijLMOCIEDGST1984-80-41 04:48:55Trace *ABN*(04/14/2013 23:48:55) [facility] ImzrhgtWKVQEXKCNK0256-55-69 04:48:55Performed (04/14/2013 23:48:55) [facility] WzxaoktAILRSZAYMH8899-41-34 04:48:55Negative *NA*(04/14/2013 23:48:55) [facility] ModarphMSGMXDMHUM5600-01-18 04:48:55Trace *ABN*(04/14/2013 23:48:55) [facility] XqsidlhIINZWRASGA4808-48-11 04:48:55Negative (04/14/2013 23:48:55) [facility] JbqputjAINOHMPOTA8927-87-25 04:48:550.2[facility]ann[facility]YSIS 2013-[facility]-15 04:48:55Negative (04/14/2013 23:48:55)[facility] 2013-[facility]-15 04:48:55Negative (04/14/2013 23:48:55)[facility] 2013-04-15 04:48:55Clear (04/14/2013 23:48:55)[facility] 2013-04-15 04:48:55Yellow *NA*(04/14/2013 23:48:55)[facility] 2013-04-15 04:48:55 Test Item Value Reference Range Interpretation Comments UA pH (test code = UA pH) 7.0 1 5.0-8.0 N [facility] BtldguaFTJHNDIJQQ5393-23-53 04:48:55 Test Item Value Reference Range Interpretation Comments UA Spec Grav (test code = UA Spec 1.025 1 N Grav) [facility] PphpwbjVOLXRWCLHG9934-21-90 04:48:55Trace *ABN*(04/14/2013 23:48:55) [facility] TytvfphMAGXHQBQYG5142-86-73 04:48:55Performed (04/14/2013 23:48:55) [facility] FlweqbqGMAENHWGVZ7605-60-60 04:48:55Negative *NA*(04/14/2013 23:48:55) [facility] JvimtykOTKOPXEVAM4092-74-47 04:48:55Trace *ABN*(04/14/2013 23:48:55) [facility] DsabkpySONTRQJQNC5624-70-69 04:48:55Negative (04/14/2013 23:48:55) [facility] DbswfmfQYVFULULBG0333-39-32 04:48:550.2[facility]YS[facility] 2013-04-15 04:48:55Negative (04/14/2013 23:48:55)[facility] 2013-04-15 04:48:55Negative (04/14/2013 23:48:55)[facility] 2013-04-15 04:48:55Clear (04/14/2013 23:48:55)[facility] 2013-04-15 04:48:55Yellow *NA*(04/14/2013 23:48:55)[facility] 2013-04-15 04:48:55 Test Item Value Reference Range Interpretation Comments UA pH (test code = UA pH) 7.0 1 5.0-8.0 N [facility] JyigdggCYGPJSRVVL9455-09-97 04:48:55 Test Item Value Reference Range Interpretation Comments UA Spec Grav (test code = UA Spec 1.025 1 N Grav) [facility] UfoyuwiFODVAJTNLM0322-88-10 04:48:55Trace *ABN*(04/14/2013 23:48:55) [facility] LcqggwiNVQVUUJLLN5970-13-86 04:48:55Performed (04/14/2013 23:48:55) [facility] RunmblsJJLJIGTQSE9695-55-93 04:48:55Negative *NA*(04/14/2013 23:48:55) [facility] OvfniimGEDZKXDTOO2449-64-33 04:48:55Trace *ABN*(04/14/2013 23:48:55) [facility] ZpbqupyGNMDWNJWEO2609-41-49 04:48:55Negative (04/14/2013 23:48:55) [facility] NkxlrqlJBKBJEMCVO7874-01-67 04:48:550.2[facility]UR[facility]ALYSIS 2013-04-15 04:48:55Negative (04/14/2013 23:48:55)[facility] 2013-04-15 04:48:55Negative (04/14/2013 23:48:55)[facility] 2013-04-15 04:48:55Clear (04/14/2013 23:48:55)[facility] 2013-04-15 04:48:55Yellow *NA*(04/14/2013 23:48:55)[facility] 2013-04-15 04:48:55 Test Item Value Reference Range Interpretation Comments UA pH (test code = UA pH) 7.0 1 5.0-8.0 N [facility] QyzcslgFWVAXHFGOJ1023-31-64 04:48:55 Test Item Value Reference Range Interpretation Comments UA Spec Grav (test code = UA Spec 1.025 1 N Grav) [facility] CobihpyPUFHVWEWVQ7576-32-97 04:48:55Trace *ABN*(04/14/2013 23:48:55) [facility] QlaviybGJVQTKHJN9576-65-22 04:28:00Negative *NA*(04/14/2013 23:28:00) [facility] TytoxygYMUGZKBDX3051-05-76 04:28:37497Qxqzzpso HermannCHEMISTRY 2013-04-15 04:28:004.1[facility] LjtxpcwOIJBJEMOD0455-00-80 04:28:0010.5[facility] CsrqqljKWJKQLPFS5670-65-88 04:28:006[facility] YyxaerpQZRDOJOTL7071-28-08 04:28:00 0.7[facility] PnznrpuFRPNRAJKB4251-43-86 04:28:97076Sprhljif HermannCHEMISTRY 2013-04-15 04:28:002.9[facility] YvekdfvYHXXESFOY7942-56-75 04:28:0020[facility] IwzoonqBVHJNODEG5191-58-47 04:28:000.5[facility] HaidsgvTFMBWWWRE0109-21-40 04:28:0089[facility] YmnzblwZKORNEKZQ7277-24-99 04:28:0011[facility] SJJOXYAAA4511-88-78 04:28:000.5[facility] BdrpqjkPMDOYFYKC3081-53-98 04:28:003 [facility] PusaurnULZKGALHI4336-78-05 04:28:70621Rscqcuww HermannCHEMISTRY 2013-04-15 04:28:007.0[facility] ZobsmljLYNHUKWZV0343-41-07 04:28:008.7[facility] MbnpdtcTKDTSIHQO1135-51-16 04:28:0029[facility] FpprztwNKPAKHKCC3719-51-89 04:28:92780Sykpiisr MiqozmcNQBHFNCSU3309-99-11 04:28:003.5[facility] NFFFGHNJJ9743-83-35 04:28:61563Odzytpmi PkhlraaPSFYJJPCHL9537-41-59 04:28:00 Test Item Value Reference Range Interpretation Comments PROTIME (test code = PROTIME) 12.1 s 12.0-14.7 N [facility]ysrNNVYPEARBM8421-37-03 04:28:00 Test Item Value Reference Range Interpretation Comments aPTT (test code = aPTT) 39.0 s 22.9-35.8 H [facility] UlhkkjeYVMHHDCCDF7985-37-46 04:28:000.90[facility] HermannHEMATOLOGY 2013-04-15 04:28:00 Test Item Value Reference Range Interpretation Comments MCH (test code = MCH) 29.4 pg 27.0-31.0 N [facility] HyahalcVBTTIQKGEC0188-26-95 04:28:0086.1[facility] HermannHEMATOLOGY 2013-04-15 04:28:0029.4[facility] EzrwpcgTRDTXZMDFM1088-04-48 04:28:0014.0[facility] YjmouenYXWTJTSOJJ6710-40-86 04:28:006.2[facility] XebtudcJCUJYOXGVP0244-72-50 04:28:58940Fidozdpx XzrjmxcULUWNUKZCT8995-95-65 04:28:0034.1[facility] HRUYGWACSG9964-26-99 04:28:003.41[facility] DvfqufpXRLFKSAMAZ2980-25-35 04:28:00 10.0[facility] MactdduPBROIEOYCW3141-62-92 04:28:0010.1[facility] HermannHEMATOLOGY 2013-04-15 04:28:004.4[facility] JbtpiqgVMYAOPIVUY6236-60-42 04:28:000.7[facility] XtjgphrFLVKHYVSKC9924-02-45 04:28:0070.7[facility] EulgbiuLABUMHAEML8783-50-16 04:28:000.3[facility] NaujxkwXMNWJKDXYR0637-04-70 04:28:001.2[facility] PXKVZPYQQG0358-60-63 04:28:004.5[facility] JakhmvjQTAVJILPLW5477-89-26 04:28:004.1 [facility] RwwzlrwJTRXRSKDZF6156-77-85 04:28:0020.0[facility] HermannHEMATOLOGY 2013-04-15 04:28:000.0[facility] HzdkqdxUBOBBWVEMJ1848-27-51 04:28:000.3[facility] HtbgdkbHMDDLXPNA8595-51-21 04:28:00Negative *NA*(04/14/2013 23:28:00)[facility] AutdobkIIWMPQJLW8478-04-51 04:28:93819Hvrtlqey KckikmdZFMUVWQAF9597-87-20 04:28:004.1[facility] WacquiqYEUITDVXK6547-04-36 04:28:0010.5[facility] GAHECGHRK4021-05-25 04:28:006[facility] PoiizfgUIEHWHDKJ8853-19-06 04:28:000.7 [facility] SwydaotRWFVSYILG2973-59-50 04:28:95602Mcjmombf HermannCHEMISTRY 2013-04-15 04:28:002.9[facility] ImelyyoYQORGATNQ2801-49-54 04:28:0020[facility] TibtywkNFPRBDHEJ4617-48-63 04:28:000.5[facility] PowpnodBXHVTVTYS8175-83-02 04:28:0089[facility] ThwhfakWVJGJZWQT8553-13-64 04:28:0011[facility] LJGEVPHWI8417-87-41 04:28:000.5[facility] NoxaplkAZHUXALDZ5862-88-08 04:28:003 [facility] XvyphdcXQYIXAICQ7441-48-41 04:28:11349Wkohwhna HermannCHEMISTRY 2013-04-15 04:28:007.0[facility] NabwrbpTHGZNDFNW9110-16-19 04:28:008.7[facility] UodbxlyASVFZNYZL1859-59-67 04:28:0029[facility] AazkklfKXEJFTGWM2365-64-79 04:28:20252Ntkosdmw JydeqdvIFUJARMGA0206-64-60 04:28:003.5[facility] SDHHITRFG9387-56-72 04:28:54585Rmvslidq NsmwsjuYGFMHTDJUY1127-41-39 04:28:00 Test Item Value Reference Range Interpretation Comments PROTIME (test code = PROTIME) 12.1 s 12.0-14.7 N [facility] RwavuzlMPPLCQLFQU1859-69-44 04:28:00 Test Item Value Reference Range Interpretation Comments aPTT (test code = aPTT) 39.0 s 22.9-35.8 H [facility] VjyukiiIFSVVPMJCW2564-72-87 04:28:000.90[facility]annHEMATOLOGY 2013-04-15 04:28:00 Test Item Value Reference Range Interpretation Comments MCH (test code = MCH) 29.4 pg 27.0-31.0 N [facility] PvlasfpAFVVPQFZIZ8270-52-67 04:28:0086.1[facility] HermannHEMATOLOGY 2013-04-15 04:28:0029.4[facility] KvrxpblLLUWFNEODS3525-94-93 04:28:0014.0[facility] FareuiiXYASYUMEDS8016-01-75 04:28:006.2[facility] SicffdbCYWXKAEVOF1078-82-82 04:28:85862Pwbbxaal ZroakmaMSFSPPHMPU9191-58-00 04:28:0034.1[facility] LARZWDYRVO1032-01-29 04:28:003.41[facility] CrcznmrUXSBRDQWXI3282-37-18 04:28:00 10.0[facility] XijnrsbXGRBQIZJWP6243-55-32 04:28:0010.1[facility] HermannHEMATOLOGY 2013-04-15 04:28:004.4[facility] YitcvotATFTIHUYHE2161-15-33 04:28:000.7[facility] OhtxbqmGAUFTKONBM2141-48-02 04:28:0070.7[facility] WsiqhbhTYRRPMTVIA4086-55-97 04:28:000.3[facility] WfkzdfpLREVROYGGG0439-24-06 04:28:001.2[facility] FULYAMOQQE8991-35-71 04:28:004.5[facility] HcvyydvKJHPHUDXJS5421-71-12 04:28:004.1 [facility] JuonnnnJPBSKBFXCM6633-16-69 04:28:0020.0[facility]annHEMATOLOGY 2013-04-15 04:28:000.0[facility] AiufwpgNCIDZTGLBK4293-35-57 04:28:000.3[facility] DjorqagNDVTDUSWG1649-92-17 04:28:00Negative *NA*(04/14/2013 23:28:00)[facility] SrwlclvRRJIZBNBP2388-38-73 04:28:64630Cdwwdkzq DhzmcarXXEDAKGPU3588-61-46 04:28:004.1[facility] EjzvpkpIAVEQWYDY6270-74-55 04:28:0010.5[facility] HRYAYBBTP6363-09-79 04:28:006[facility] GonnvwbZDMLMAWBZ1856-88-21 04:28:000.7 [facility] TdlcnlkLRVWQLMJK1795-12-23 04:28:07548Kjvazqvl HermannCHEMISTRY 2013-04-15 04:28:002.9[facility] PtcfcwaRUOMZNXNU7512-61-52 04:28:0020[facility] TygtnqwALZVKWOSB7983-20-64 04:28:000.5[facility] MataphbXZJZVTRYY9453-18-44 04:28:0089[facility] WszakuwWLDWBARVQ8727-44-91 04:28:0011[facility] FZUDWWSXR5538-96-95 04:28:000.5[facility] NuwwqqtJGJKMBCXM3434-75-77 04:28:003 [facility] HkbvaplBRHBBECBO2020-64-16 04:28:26513Ikhnbwny HermannCHEMISTRY 2013-04-15 04:28:007.0[facility] BmnqmzyBVVWJNVKW2995-74-93 04:28:008.7[facility] IbtbpjtTAKAULYKJ4232-44-81 04:28:0029[facility] ByoctrtIQIPHBXSD5079-70-59 04:28:11783Zptophww DdmyyuxHSRKJAPOH7694-98-95 04:28:003.5[facility] GNQLPIWGI9143-32-10 04:28:91580Dnvzprli MdaoqupOYYMPLJROD0303-12-52 04:28:00 Test Item Value Reference Range Interpretation Comments PROTIME (test code = PROTIME) 12.1 s 12.0-14.7 N [facility] ErxtyvtXOYNVIEZZH3914-98-72 04:28:00 Test Item Value Reference Range Interpretation Comments aPTT (test code = aPTT) 39.0 s 22.9-35.8 H [facility] YjjbgdcQFAHTHFDOK7533-41-41 04:28:000.90[facility]annHEMATOLOGY 2013-04-15 04:28:00 Test Item Value Reference Range Interpretation Comments MCH (test code = MCH) 29.4 pg 27.0-31.0 N [facility] GajeffxJKYCJJVTBC9180-03-19 04:28:0086.1[facility]annHEMATOLOGY 2013-04-15 04:28:0029.4[facility] HguzvceWWQNRQVOOY3751-46-93 04:28:0014.0[facility] MhysymnDVUFZPRYRN7563-22-57 04:28:006.2[facility] NykrmqzUGPOJOYKWU9720-29-25 04:28:90282Ivaxopfb SedsnweEWBWNQJYCU4636-86-93 04:28:0034.1[facility] QNMBFGQYVP9245-17-36 04:28:003.41[facility] CdnqgmeEMVCTJWDWM0683-43-43 04:28:00 10.0[facility] SpqckyiYQFHKSWTDN4024-42-74 04:28:0010.1[facility]annHEMATOLOGY 2013-04-15 04:28:004.4[facility] WpokoxjOCWNIFPRMD7025-15-16 04:28:000.7[facility] BljmvmwAMBWKKRIYT6940-00-36 04:28:0070.7[facility] FiwrifiIGKNPZYYFV2996-08-68 04:28:000.3[facility] PfvtmmyJVGLIJFVXR5177-72-89 04:28:001.2[facility] QBWDRFWQFO6888-68-26 04:28:004.5[facility] HtaklalCIDNRSXOOC7500-04-06 04:28:004.1 [facility] AvfrczlPGCTGTICSZ6747-27-50 04:28:0020.0[facility]annHEMATOLOGY 2013-04-15 04:28:000.0[facility] HiyvxvmCGBNOHUGLF6946-43-42 04:28:000.3[facility] JmfmexpBGEEIVOKL8132-00-77 04:28:00Negative *NA*(04/14/2013 23:28:00)[facility] TdcbaytPBGJXKMGK0338-32-62 04:28:13668Qwvmuuvk EhemmsgXCZWOGKRE1392-05-91 04:28:004.1[facility] FwsmizaILYOPPNAO1264-38-97 04:28:0010.5[facility] QUOOWLWIC3270-76-05 04:28:006[facility] OhgkwllLWJKCGAKC1472-22-73 04:28:000.7 [facility] OsqdbvrXRHFGUHNB2545-89-72 04:28:52710Gqnlfvyt HermannCHEMISTRY 2013-04-15 04:28:002.9[facility] SjklrynUMHPFMMVE3227-02-24 04:28:0020[facility] IohmsuqQCDCUBMSH0272-55-92 04:28:000.5[facility] ShtpwinTETBAJXTF9058-52-16 04:28:0089[facility] VplstzcAQRBBKKYV1400-65-36 04:28:0011[facility] JNYKYOSJX5340-88-59 04:28:000.5[facility] HihrjzgFCYHMSFLG5410-07-89 04:28:003 [facility] UyovsiqXYRTYDVRL1415-36-36 04:28:32610Kiqwergz [facility]annCHEMISTRY 2013-04-15 04:28:007.0[facility] LptnvulAWHXAVVND2521-35-61 04:28:008.7[facility] JxfnmdqXXYOLKUMH1424-12-14 04:28:0029[facility] EepsyutCYLRWDFXS9569-19-58 04:28:38205Ppmzandf WjolpmoCGILNBIKP8194-18-71 04:28:003.5[facility] PRHLUOCBV4831-08-69 04:28:21688Hwzxdwms CekfshcZRDYGQHOQB5810-69-18 04:28:00 Test Item Value Reference Range Interpretation Comments PROTIME (test code = PROTIME) 12.1 s 12.0-14.7 N [facility] WkqirqdWGBRGGCTJN2732-57-42 04:28:00 Test Item Value Reference Range Interpretation Comments aPTT (test code = aPTT) 39.0 s 22.9-35.8 H [facility] EpbzlopKSRHHAPVJF7561-04-73 04:28:000.90[facility]annHEMATOLOGY 2013-04-15 04:28:00 Test Item Value Reference Range Interpretation Comments MCH (test code = MCH) 29.4 pg 27.0-31.0 N [facility] PdoqtbtRHXRMOYQFS6298-53-84 04:28:0086.1[facility]annHEMATOLOGY 2013-04-15 04:28:0029.4[facility] KnbqxmrXNXLKAYYIH0318-37-46 04:28:0014.0[facility] VoylmhpWQBRHTPDBX4977-35-05 04:28:006.2[facility] UzgowogUKVIELERQD7574-91-90 04:28:25383Nksdcrfd IbnvqunCDNDUGOUAQ9698-65-93 04:28:0034.1[facility] WOLROXGQOL7619-29-23 04:28:003.41[facility] LyqtvetRLURERMGJM6672-90-97 04:28:00 10.0[facility] ApbwelvIZUZXTMAZM9284-47-32 04:28:0010.1[facility]annHEMATOLOGY 2013-04-15 04:28:004.4[facility] HaosvtoCANKMQOWQM5029-28-15 04:28:000.7[facility] HotmspdMQDFCSANSE6843-15-31 04:28:0070.7[facility] AvfrlwhZOQIGZTDAA6218-64-87 04:28:000.3[facility] FyhlfkfPKJAUIFPVL0413-52-46 04:28:001.2[facility] UTFTCPTIQK8845-26-73 04:28:004.5[facility] FxyydzqBVFKJSJYXB3952-26-86 04:28:004.1 [facility] NbgbnsuNNXTIEVDBT3455-98-22 04:28:0020.0[facility]annHEMATOLOGY 2013-04-15 04:28:000.0[facility] ZzgbgfhWWWSZZFPMH0882-30-04 04:28:000.3[facility] JyseeiaTGYYTGQCR8071-92-40 04:28:00Negative *NA*(04/14/2013 23:28:00)[facility] YtgwszrPGVSNGZSG4634-03-06 04:28:85598Dmqfluir OjowdgfLCEFFBJVW6348-43-32 04:28:004.1[facility] DsawlsuURKZWDOKZ7803-52-59 04:28:0010.5[facility] AOKQCRRJP7005-88-06 04:28:006[facility] GqioradRQPQTPLKI8021-19-87 04:28:000.7 [facility] UpvnopvKKEDFAAGO3167-97-77 04:28:05425Lxijwxyi HermannCHEMISTRY 2013-04-15 04:28:002.9[facility] MkdielxZGBNYUURY8031-99-74 04:28:0020[facility] DstjmhuPPOIKGBLB2956-99-24 04:28:000.5[facility] UibnbmlIFWNKDRJK2799-52-89 04:28:0089[facility] TpvlpurFUTCHXKZX0739-78-37 04:28:0011[facility] LMHEVWSRN3470-28-09 04:28:000.5[facility] LljernyTIEMPOAVE1633-14-80 04:28:003 [facility] MfqhotzEMMPRAIRM3454-97-38 04:28:31099Bkrbuboe HermannCHEMISTRY 2013-04-15 04:28:007.0[facility] NfamvcnDRGALVWYL7559-89-43 04:28:008.7[facility] SdgwpluUUXQLIPGE9161-26-72 04:28:0029[facility] EgkcvpfAJSNORYSS6037-03-77 04:28:29167Fvuddqvu NpvfyioOCNAZGHSC7416-33-44 04:28:003.5[facility] NDIITGXUE4628-18-70 04:28:50717Elbfpunh OkumoisLGWVAGSSFT8558-69-63 04:28:00 Test Item Value Reference Range Interpretation Comments PROTIME (test code = PROTIME) 12.1 s 12.0-14.7 N [facility] ZyxzhwhDWYYTDBDJR6104-08-64 04:28:00 Test Item Value Reference Range Interpretation Comments aPTT (test code = aPTT) 39.0 s 22.9-35.8 H [facility] GxadhovYPDCQFYLCS8577-63-59 04:28:000.90[facility]annHEMATOLOGY 2013-04-15 04:28:00 Test Item Value Reference Range Interpretation Comments MCH (test code = MCH) 29.4 pg 27.0-31.0 N [facility] SnmczacIWPVGMKRTA9964-45-33 04:28:0086.1[facility]annHEMATOLOGY 2013-04-15 04:28:0029.4[facility] MvliaqdAMPZYDAFVE0543-66-14 04:28:0014.0[facility] HuntojzJGTEHGYDSK8056-82-59 04:28:006.2[facility] PxdxjzjTHOIGGJVIH7428-75-04 04:28:82491Wybkqzir UpxkjifHZZDFWDJPG8084-13-81 04:28:0034.1[facility] QUTJFPSJXC4410-85-28 04:28:003.41[facility] QktqeceXQAQUPCLNN5197-14-16 04:28:00 10.0[facility] BvdxdbiIJITIDAPIQ1893-14-15 04:28:0010.1[facility]annHEMATOLOGY 2013-04-15 04:28:004.4[facility] XvmiogzMJFPNJTHRR4220-98-51 04:28:000.7[facility] JdxctqjJTQOJYZZYO9086-30-94 04:28:0070.7[facility] UjkqxexVWAEDCSPQR5268-18-86 04:28:000.3[facility] DktkiccSIRCYSZHEV4693-42-10 04:28:001.2[facility] DILVSGPTBJ0055-66-08 04:28:004.5[facility] WhklbpdFDVVVQKOWM9542-31-41 04:28:004.1 [facility] LnequmwEXKGKVVFBQ5548-54-26 04:28:0020.0[facility]annHEMATOLOGY 2013-04-15 04:28:000.0[facility] GnmbuykZUARUWEXOW9426-48-58 04:28:000.3[facility] XjfocbyUZLEFXOJM5717-00-46 04:28:00Negative *NA*(04/14/2013 23:28:00)[facility] YhvcokzMCGJMHQRZ9933-70-49 04:28:12587Cwzllbbr UnhwvkaLSKQVKMWV0538-24-51 04:28:004.1[facility] TdcexqbSVWJNUDUL0609-25-86 04:28:0010.5[facility] TOTXPXKST8915-09-35 04:28:006[facility] OkfuoerELADQUTOO3614-29-49 04:28:000.7 [facility] JfyzazsTFQGJOETT2648-23-39 04:28:68130Nnhqdard HermannCHEMISTRY 2013-04-15 04:28:002.9[facility] ByesnurZAPDNMSJK2800-03-01 04:28:0020[facility] NjyxnlvDBTWFOAKU4083-39-16 04:28:000.5[facility] RftrpcwJZJSIPSLE6906-17-32 04:28:0089[facility] ZdcvxsgMSJQHVQYG1708-10-44 04:28:0011[facility] QPOMXVVDO8408-83-28 04:28:000.5[facility] ZakkkmoRRLVSSFZK7530-98-26 04:28:003 [facility] MzxgsnbTVLEYCFCD7702-67-61 04:28:19593Asjtcodc HermannCHEMISTRY 2013-04-15 04:28:007.0[facility] BknxkmmGEJGLKOGL6589-30-08 04:28:008.7[facility] QqsviqoGEAQIOBCH8957-60-81 04:28:0029[facility] XrsilnrHWXNGOHHR3137-61-21 04:28:75575Fskbygvz XzhnhgvDVOPITVRW0719-04-11 04:28:003.5[facility] FIIMCMUCA7401-86-85 04:28:35471Ocuqoplq KjgabltKYCDFXZAXD6703-79-61 04:28:00 Test Item Value Reference Range Interpretation Comments PROTIME (test code = PROTIME) 12.1 s 12.0-14.7 N [facility] GluywqkCYXVCMJEXB4695-93-56 04:28:00 Test Item Value Reference Range Interpretation Comments aPTT (test code = aPTT) 39.0 s 22.9-35.8 H [facility] QdortgoOMFNVORRLL2758-45-80 04:28:000.90[facility]annHEMATOLOGY 2013-04-15 04:28:00 Test Item Value Reference Range Interpretation Comments MCH (test code = MCH) 29.4 pg 27.0-31.0 N [facility] NcnjnifXXNYJGAEKG4974-35-86 04:28:0086.1[facility]annHEMATOLOGY 2013-04-15 04:28:0029.4[facility] PbyimqcOXMHXPCDPL9577-93-39 04:28:0014.0[facility] DadfsqbEMDWDFIMBH3767-12-56 04:28:006.2[facility] CcmrrdrCDIZBXWPVP9828-99-16 04:28:90345Uzkdlgki NeerofuDUUENJJXCX3160-78-53 04:28:0034.1[facility] FPIKBPCCEZ5705-34-17 04:28:003.41[facility] FhlfualNMJYBHMTCO0283-53-30 04:28:00 10.0[facility] GuzbircAVZLNWEZBU9890-64-17 04:28:0010.1[facility] HermannHEMATOLOGY 2013-04-15 04:28:004.4[facility] MkmkqzrENDDCQZJOA7139-64-98 04:28:000.7[facility] CadlqfuQXKNMPRQEU9674-06-87 04:28:0070.7[facility] YlfqfeaGSEZDQGWVY4275-80-10 04:28:000.3[facility] HrlmtgqWEJBKPEXWC8653-33-45 04:28:001.2[facility] Vin WYLGEMVCNQ2948-36-33 04:28:004.5[facility] SbppxfaQZOQFCPEWY2225-32-86 04:28:004.1 [facility] PbaulzwEOSLYOYEDJ4396-64-54 04:28:0020.0[facility] HermannHEMATOLOGY 2013-04-15 04:28:000.0[facility] LnzrszqUPHKUNHODE5480-57-58 04:28:000.3[facility] HermannBEDSIDE GLUCOSE WWWYETI2696-04-65 01:12:62246Rbijgndl HermannBEDSIDE GLUCOSE PJTASKM6274-08-73 01:12:94115Asddolfp HermannBEDSIDE GLUCOSE TESTING 2012-03-15 01:12:47330Dxpcmbjy HermannBEDSIDE GLUCOSE NSLHQIK9773-07-10 01:12:00 260[facility] HermannBEDSIDE GLUCOSE VSEKEEV6138-07-54 01:12:57367Tdinimjq [place] BEDSIDE GLUCOSE PWRORIY1545-28-12 01:12:01887Prtijegf HermannURINALYSIS 2012-03-14 23:40:00Trace *ABN*(03/14/2012 18:40:00)[facility]annURINALYSIS 2012-03-14 23:40:00 Test Item Value Reference Range Interpretation Comments UA pH (test code = UA pH) 6.0 1 5.0-8.0 N [facility]CsualwxVBEQGUKQIP8240-18-90 23:40:00>=80 mg/dL *NA*(03/14/2012 18:40:00)[facility]TrseiqgWFVVVYVQPD9397-83-32 23:40:00>=1000 mg/dL *ABN*(03/14/2012 18:40:00)[facility]neQkiryjjFUCVUEJFVR3391-35-52 23:40:00Negative (03/14/2012 18:40:00)[facility]neHdsqqjpMKYJMQIURU3677-56-89 23:40:00Negative (03/14/2012 18:40:00)[facility] HospitalPrgchsvDSNBVJTIIR2269-40-27 23:40:000.2Mem[facility]oundZhkycucCEMNRHKWOO6210-79-70 23:40:00Negative (03/14/2012 18:40:00)[facility]neQzskuwsYWEBEEIYPQ9013-53-58 23:40:00Negative *NA*(03/14/2012 18:40:00)[facility] HospitalCigcvoxEJWMUFAUCT4733-35-72 23:40:00Clear (03/14/2012 18:40:00)[facility] ZVEBLTMNMA7326-88-83 23:40:00Yellow *NA*(03/14/2012 18:40:00)[facility] CFSIIHJHLB2758-53-13 23:40:00>=1.030 *ABN*(03/14/2012 18:40:00)[facility]nePrgcbjzNULRRPVYXA8597-40-52 23:40:00Occasional /LPF (03/14/2012 18:40:00) [facility]neCxhptojMBXLLPNJHG8187-99-55 23:40:003-5 /HPF (03/14/2012 18:40:00) [facility] HospitalVnucvxlEJWXGYWTOH4906-82-48 23:40:00Occasional /HPF (03/14/2012 18:40:00)[facility] HospitalTbmztyoRLQUPQGHZZ9044-52-73 23:40:00Trace *ABN*(03/14/2012 18:40:00)[facility]neJvfvvdfQARYEPMQLM7415-37-76 23:40:00 Test Item Value Reference Range Interpretation Comments UA pH (test code = UA pH) 6.0 1 5.0-8.0 N [facility]neYqivngpOFYHCILCOL3229-84-71 23:40:00>=80 mg/dL *NA*(03/14/2012 18:40:00)[facility]neUovyqjxBUJJAGDDSX9982-85-25 23:40:00>=1000 mg/dL *ABN*(03/14/2012 18:40:00)[facility]neGfymzdzVXTMACSIIY0664-78-21 23:40:00Negative (03/14/2012 18:40:00)[facility]neXplhgrnODYQKDJWDM1516-74-06 23:40:00Negative (03/14/2012 18:40:00)[facility]neKhxcwtkNQRWYSMHTE4886-37-64 23:40:000.2[facility] RhxsbolDMKVPQXRJJ4666-75-40 23:40:00Negative (03/14/2012 18:40:00)[facility]neObgfnugFUJKSXEWVB2771-10-23 23:40:00Negative *NA*(03/14/2012 18:40:00)[facility]neNwxlwxtWORJAURVZQ1900-70-28 23:40:00Clear (03/14/2012 18:40:00)[facility] HVEKSCHHIQ1986-41-61 23:40:00Yellow *NA*(03/14/2012 18:40:00)[facility] ZWYWAIOPLW2326-11-47 23:40:00>=1.030 *ABN*(03/14/2012 18:40:00)[facility]neZptmlefSZSQPVUFJY6945-24-80 23:40:00Occasional /LPF (03/14/2012 18:40:00) [facility]neRgoehywLTCQUFTUQF5570-79-58 23:40:003-5 /HPF (03/14/2012 18:40:00) [facility]neGkbqpxqQYIBFXKNJV3096-32-45 23:40:00Occasional /HPF (03/14/2012 18:40:00)[facility]neQgkpgtaGAFVLPJVPG5025-10-54 23:40:00Trace *ABN*(03/14/2012 18:40:00)[facility]neKdqyjsyYHULTDYAUT7536-67-46 23:40:00 Test Item Value Reference Range Interpretation Comments UA pH (test code = UA pH) 6.0 1 5.0-8.0 N [facility]nePxqcemeZWJUDIUMYW9310-85-75 23:40:00>=80 mg/dL *NA*(03/14/2012 18:40:00)[facility]neFvventmQDNHNQUNVD9817-86-58 23:40:00>=1000 mg/dL *ABN*(03/14/2012 18:40:00)[facility]neOmesczbBMJSBJANTW4492-54-89 23:40:00Negative (03/14/2012 18:40:00)[facility]neNwtwqamFVAKLJGZBQ2764-84-87 23:40:00Negative (03/14/2012 18:40:00)[facility]neBosutpqBZZQDRLLKS1034-12-64 23:40:000.2[facility] PnkmfwdHSJPICUXPV5652-71-49 23:40:00Negative (03/14/2012 18:40:00)[facility]neElaltbcVZCVESQQES5552-42-17 23:40:00Negative *NA*(03/14/2012 18:40:00)[facility] HospitalHeauukhMVJHBTJCIQ7441-98-10 23:40:00Clear (03/14/2012 18:40:00)[facility] SCNYBLMZBO9787-22-20 23:40:00Yellow *NA*(03/14/2012 18:40:00)[facility] XFEHQMFSRG3052-02-22 23:40:00>=1.030 *ABN*(03/14/2012 18:40:00)[facility]neBmgmkirPETFURBIPB0313-65-52 23:40:00Occasional /LPF (03/14/2012 18:40:00) [facility]neTnbokigZQRWWMKPLT0013-36-90 23:40:003-5 /HPF (03/14/2012 18:40:00) [facility]neUujaasnLPQMGOWMCF3882-12-56 23:40:00Occasional /HPF (03/14/2012 18:40:00)[facility]neDuxiberUNPFKYEPJX3001-67-95 23:40:00Trace *ABN*(03/14/2012 18:40:00)[facility]neFhmutkdNDZAFTABDX5558-88-05 23:40:00 Test Item Value Reference Range Interpretation Comments UA pH (test code = UA pH) 6.0 1 5.0-8.0 N [facility]nePegrpqhZNSUSUGVPY7889-39-21 23:40:00>=80 mg/dL *NA*(03/14/2012 18:40:00)[facility]neUgpmtpcJBHDSTIPAY0565-16-56 23:40:00>=1000 mg/dL *ABN*(03/14/2012 18:40:00)[facility] CleburneSppownaLGDZNBDACP7850-00-43 23:40:00Negative (03/14/2012 18:40:00)[facility] Cle[facility]neXgudgreBUFUJIJCKT8588-15-86 23:40:00Negative (03/14/2012 18:40:00)[facility]FsosmbaQYAWVBNFJP5888-46-93 23:40:000.2[facility] LgwyxdyNWMJUONXGR7045-80-31 23:40:00Negative (03/14/2012 18:40:00)[facility]KedwfjdCNIUVHIEWA6497-91-84 23:40:00Negative *NA*(03/14/2012 18:40:00)[facility] HospitalLrkeprtLJXIBNKOZV1855-72-34 23:40:00Clear (03/14/2012 18:40:00)[facility] KYAKSSQWFW9131-04-30 23:40:00Yellow *NA*(03/14/2012 18:40:00)[facility] GJIOQBTGLO2121-09-34 23:40:00>=1.030 *ABN*(03/14/2012 18:40:00)[facility]neRserbecBFGSMCNTCR4686-21-76 23:40:00Occasional /LPF (03/14/2012 18:40:00) [facility]neOtssqosWBRJPGVVHL8975-98-07 23:40:003-5 /HPF (03/14/2012 18:40:00) [facility]nePhopbrgDLKOUZBNJD3601-98-78 23:40:00Occasional /HPF (03/14/2012 18:40:00)[facility] ZeazxtvBCVGPIDBGO4898-99-37 23:40:00Trace *ABN*(03/14/2012 18:40:00)[facility]neJhbnjeyUUQQSRLCZI3268-71-41 23:40:00 Test Item Value Reference Range Interpretation Comments UA pH (test code = UA pH) 6.0 1 5.0-8.0 N [facility]neTzrifgtRUULPRBLCZ9447-62-09 23:40:00>=80 mg/dL *NA*(03/14/2012 18:40:00)[facility]neJayfhgdNHPVEMNXZO6095-28-28 23:40:00>=1000 mg/dL *ABN*(03/14/2012 18:40:00)[facility]neRitasdtODFSIRQAAA5311-18-30 23:40:00Negative (03/14/2012 18:40:00)[facility]neRaqieyfQPBKWKZYQC7398-05-68 23:40:00Negative (03/14/2012 18:40:00)[facility]neByqnduqTKWMXNCKNS1413-36-81 23:40:000.2[facility] OekgyguWZMLPIJBAD7163-65-71 23:40:00Negative (03/14/2012 18:40:00)[facility]neBvvnwfoNKIMQNXVTJ1095-10-53 23:40:00Negative *NA*(03/14/2012 18:40:00)[facility]neAczcmpjLSMGXHFWIL1310-60-25 23:40:00Clear (03/14/2012 18:40:00)[facility] OFUYEIWUWE9191-21-36 23:40:00Yellow *NA*(03/14/2012 18:40:00)[facility] BOPGLPRDJJ1952-55-94 23:40:00>=1.030 *ABN*(03/14/2012 18:40:00)[facility]neEmmempdBASVVXQJUU5356-30-38 23:40:00Occasional /LPF (03/14/2012 18:40:00) [facility]nePpnlsnjPCMRMAZWZJ1318-17-43 23:40:003-5 /HPF (03/14/2012 18:40:00) [facility]neFhdxlzaAVVWILAVJK5580-97-81 23:40:00Occasional /HPF (03/14/2012 18:40:00)[facility]neVjoqxseDHAXQJXDMP7985-89-03 23:40:00Trace *ABN*(03/14/2012 18:40:00)[facility]neGgqigneARPSUZHIAP5132-46-64 23:40:00 Test Item Value Reference Range Interpretation Comments UA pH (test code = UA pH) 6.0 1 5.0-8.0 N [facility]neSmqyxhiHGWHFHLXDW8918-21-13 23:40:00>=80 mg/dL *NA*(03/14/2012 18:40:00)[facility]neTpwmnttYMWJIEPWKA8595-34-54 23:40:00>=1000 mg/dL *ABN*(03/14/2012 18:40:00)[facility]neKafkzheVSINBJKAJX2612-06-61 23:40:00Negative (03/14/2012 18:40:00)[facility]neKyrqzbkNRMNOFBAMR2391-78-76 23:40:00Negative (03/14/2012 18:40:00)[facility]neZljiypuBOFXKNTLFE2808-20-87 23:40:000.2[facility] UffqnudMNEBNDTSNF7128-66-35 23:40:00Negative (03/14/2012 18:40:00)[facility]neMvjrdgiNPMVOBJXON8729-31-72 23:40:00Negative *NA*(03/14/2012 18:40:00)[facility]neGkebmkpTSEUETEFAC9701-32-40 23:40:00Clear (03/14/2012 18:40:00)[facility] XNFGUHBXIF5521-78-19 23:40:00Yellow *NA*(03/14/2012 18:40:00)[facility] ABGIAVCCTU1424-68-31 23:40:00>=1.030 *ABN*(03/14/2012 18:40:00)[facility]neVdmqysnYVDHGWAUPM1004-86-85 23:40:00Occasional /LPF (03/14/2012 18:40:00) [facility]neJbduqsfGSZLCSSAGP7876-64-28 23:40:003-5 /HPF (03/14/2012 18:40:00) [facility] NydvhpvXGUURVMHZO9986-38-32 23:40:00Occasional /HPF (03/14/2012 18:40:00)[facility] VqamibsLUTPARVFZ9790-65-26 22:50:00Negative *NA*(03/14/2012 17:50:00)[facility] XlamidzLEUXXBGOT8329-13-98 22:50:0045[facility] HermannCHEMISTRY 2012-03-14 22:50:001.2[facility] QqkdguhQMDFWIIQA9886-84-14 22:50:003.8[facility] QqoogamPAKCGXGQY1660-08-34 22:50:0021[facility] BnxzquiHCZEAOCCN8126-89-74 22:50:0016.8[facility] FhtyenkYVUSUCCLG2108-61-54 22:50:001.1[facility] CMGEZLGCA0801-33-38 22:50:008.2[facility] GulgmwnLQEJPHIPM0964-92-17 22:50:003.8 [facility] IzqfssqXZNRUGFBS2083-63-37 22:50:000.7[facility] HermannCHEMISTRY 2012-03-14 22:50:96995Adgaxgun SudeglqKJQDNAZXX8049-86-97 22:50:0099[facility] OhadxgnZBDBIHSYV9420-28-73 22:50:0027[facility] CwvwyzzTYRDPCHTW4311-36-89 22:50:55830Lykxummt IwqinimMAGAIHLBW4343-58-26 22:50:0015[facility] TLCUGEPLF7606-59-31 22:50:0024[facility] XfihrshKSSOPDYWD7574-44-86 22:50:0020 [facility] LdfhbgnZMAVPBKZX3037-23-41 22:50:0067[facility] HermannCHEMISTRY 2012-03-14 22:50:004.4[facility] DydzlwxJOOBVULIO2287-16-39 22:50:009.9[facility] XrkwnrwEFUVKUJJPR4499-87-58 22:50:0011.8[facility] AobmtquAPZFPVKWHN4846-79-34 22:50:0035.9[facility] AiioiuxRCBFMPNRJT0685-23-20 22:50:00 Test Item Value Reference Range Interpretation Comments MCH (test code = MCH) 31.2 pg 27.0-31.0 H [facility] LjlkrlcHZSPHDYUFE7045-24-03 22:50:94910Sfysxvgg HermannHEMATOLOGY 2012-03-14 22:50:0013.1[facility] OcwrqjhBBJFMNSOTW0819-25-11 22:50:0040.7[facility] MirklfySPWOCKDOIG7497-58-85 22:50:0014.6[facility] CyomznzPFQPKMECNV7645-62-75 22:50:0087.0[facility] KitwwtmWBCCIZJUZL4006-96-49 22:50:0011.7[facility] NJYRPOLAUX7562-25-25 22:50:004.68[facility] ZhrgkjmHHANOLIPNF9003-15-46 22:50:00 0.0[facility] QexltlhZQVGDFYLCH9121-89-12 22:50:000.2[facility] HermannHEMATOLOGY 2012-03-14 22:50:000.0[facility] KkuqwneIMNGXWQXWT0216-12-25 22:50:000.4[facility] QuvfdndJRVZKBNUUG0483-51-67 22:50:0010.6[facility] TztlyicNOBGUAMLEM1344-88-19 22:50:000.7[facility] JryolwaJPJSXBIDEW7767-61-86 22:50:003.4[facility] BQBFJAPPXJ0220-37-57 22:50:00Normal (03/14/2012 17:50:00)[facility] DTNBTGRRTJ7731-93-08 22:50:006.0[facility] CgivrxhAZPBFNWTBS0088-06-31 22:50:000.0 [facility] NnburdlKKKAQEQOMF4417-43-68 22:50:0090.4[facility] HermannHEMATOLOGY 2012-03-14 22:50:00Normal (03/14/2012 17:50:00)[facility]annCHEMISTRY 2012-03-14 22:50:00Negative *NA*(03/14/2012 17:50:00)[facility]annCHEMISTRY 2012-03-14 22:50:0045[facility] IuclgqwUJQXMITOA4655-31-01 22:50:001.2[facility] MpsbeqgZCXQOSWXI7056-18-33 22:50:003.8[facility] ClehlvpATPBJEHNM7869-97-11 22:50:0021[facility] SgwcjgbLGMCQNIGG0869-20-27 22:50:0016.8[facility] GZKDFGWCC3374-69-19 22:50:001.1[facility] IdqthtmXXNSZXCPV0381-83-78 22:50:008.2 [facility] KemymmoCRSJJVZJA8905-44-22 22:50:003.8[facility] HermannCHEMISTRY 2012-03-14 22:50:000.7[facility] LfjktcgVTCMGRUQT0488-50-12 22:50:03053Lneqijbj EkimvhmBKDOKLQJG8308-48-35 22:50:0099[facility] PtumegxWEAAPSUWM9864-86-57 22:50:0027[facility] GvzvzwuXITNPMPPL0656-13-00 22:50:44232Mlnrxllj [facility] HFYWMASSL6768-36-07 22:50:0015[facility] VutvelmWFUKRFDXJ0573-45-55 22:50:0024 [facility] TsqhnrzNDZSJTLDC7651-38-03 22:50:0020[facility] HermannCHEMISTRY 2012-03-14 22:50:0067[facility] TnysmeuQWNZGBQVP6501-61-26 22:50:004.4[facility] XudczrnSHBKVXJYX6721-65-20 22:50:009.9[facility] CbblcgpLYCATCZSOS8109-57-17 22:50:0011.8[facility] VjcwdifQOFVXYRGBI8716-91-02 22:50:0035.9[facility] RDNQKNJVBX8661-81-37 22:50:00 Test Item Value Reference Range Interpretation Comments MCH (test code = MCH) 31.2 pg 27.0-31.0 H [facility] VidmcteMRMWYYZZZH0957-37-49 22:50:73054Adrkbydn HermannHEMATOLOGY 2012-03-14 22:50:0013.1[facility] CdofmjlPBLYXUGLME0618-26-76 22:50:0040.7[facility] FvjqfvjNTGUFIVZYX0274-14-52 22:50:0014.6[facility] PreuewzBXUVAJZIPN3656-38-06 22:50:0087.0[facility] RmhvwzxUIIVTRFPYD6159-19-76 22:50:0011.7[facility] TGQTRENEIZ1403-64-05 22:50:004.68[facility] EehzbdgGRMBFKHGGT9490-90-58 22:50:00 0.0[facility] XeorbxzBDYZMVUEXR9751-80-21 22:50:000.2[facility] HermannHEMATOLOGY 2012-03-14 22:50:000.0[facility] FmhrscjBYTITWFKNY1280-63-10 22:50:000.4[facility] YvsgscpEGOEWZCDUI4295-83-96 22:50:0010.6[facility] LrdgearCEJUWODNNY1221-87-05 22:50:000.7[facility] YhwivifOGDWSVPLOL2143-71-70 22:50:003.4[facility] NDIEUUSTXY0690-32-06 22:50:00Normal (03/14/2012 17:50:00)[facility] EPZHNRWJBW4790-58-51 22:50:006.0[facility] OmmckowZNFLXRIDEU2843-79-26 22:50:000.0 [facility] IfgmvinMHNKBCEDYR9003-39-24 22:50:0090.4[facility] HermannHEMATOLOGY 2012-03-14 22:50:00Normal (03/14/2012 17:50:00)[facility]annCHEMISTRY 2012-03-14 22:50:00Negative *NA*(03/14/2012 17:50:00)[facility]annCHEMISTRY 2012-03-14 22:50:0045[facility] ZauygobRCGJQASCI2084-08-90 22:50:001.2[facility] DlzfklqKMVCZSJHD8562-81-87 22:50:003.8[facility] LfpjdpzSWJUMDZBP0335-91-47 22:50:0021[facility] SyydnbpZJNGGKJWI2102-94-30 22:50:0016.8[facility] YGTXWJRIM3330-23-35 22:50:001.1[facility] FfbmskeBNCDDOJRX9421-70-36 22:50:008.2 [facility] JebrqegWAHCUNOWV3343-30-34 22:50:003.8[facility] HermannCHEMISTRY 2012-03-14 22:50:000.7[facility] JmzgqroQCZVRVCTV8059-31-41 22:50:07593Vbbcnhvw KgzlwexOFWTOJQYR2149-74-72 22:50:0099[facility] WistxzfXZNCAWAAD6772-39-42 22:50:0027[facility] BjlkqtoEAPUCZYSN8660-27-86 22:50:10998Jxoolbue [facility] SKVKHXETJ3002-72-84 22:50:0015[facility] CjwdcfrWAAATYGFX9537-35-53 22:50:0024 [facility] UamavpkKEFLPGOGA3441-16-92 22:50:0020[facility] HermannCHEMISTRY 2012-03-14 22:50:0067[facility] ZnlmearYBSNMNCFH8186-66-61 22:50:004.4[facility] ChmnfogXQHOFGMUJ5174-89-83 22:50:009.9[facility] DvsuushLRDPOONNXN0267-49-33 22:50:0011.8[facility] LjqvwmnBMZDPPYKRG2179-30-71 22:50:0035.9[facility] FCCJZHVTYM8233-89-30 22:50:00 Test Item Value Reference Range Interpretation Comments MCH (test code = MCH) 31.2 pg 27.0-31.0 H [facility] KyyvcbpWVRNEPOTGI2038-61-94 22:50:51265Hpbuuwwq HermannHEMATOLOGY 2012-03-14 22:50:0013.1[facility] HbocvscTMPTMILCRX5980-66-29 22:50:0040.7[facility] AviquhtHGGMJJPBAZ7132-25-99 22:50:0014.6[facility] LbsdmadKEMDEWKFXX2572-43-14 22:50:0087.0[facility] ZhqrmfgUZBQTOOEGU2918-72-80 22:50:0011.7[facility] NBFNWGGIKE3143-25-16 22:50:004.68[facility] SoqdcllFLDMXJTPIA7257-41-49 22:50:00 0.0[facility] ZrvqvckQBTWSDIMNM6204-07-01 22:50:000.2[facility] HermannHEMATOLOGY 2012-03-14 22:50:000.0[facility] AogqurwEFOQNBQQBR2487-33-95 22:50:000.4[facility] DbagfooQXIERRHYOS4253-98-28 22:50:0010.6[facility] NjftdkuUZVFUYTJTC8634-58-68 22:50:000.7[facility] YrajtlpEHCOQZAVNL6427-06-59 22:50:003.4[facility] QJBZOHJLIG3583-32-99 22:50:00Normal (03/14/2012 17:50:00)[facility] APCJKCKNOF7970-25-89 22:50:006.0[facility] YwswaxaLZZJDSQIWW8486-19-75 22:50:000.0 [facility] VegnzoqDTXEIVLZOC2501-42-27 22:50:0090.4[facility] HermannHEMATOLOGY 2012-03-14 22:50:00Normal (03/14/2012 17:50:00)[facility]annCHEMISTRY 2012-03-14 22:50:00Negative *NA*(03/14/2012 17:50:00)[facility]annCHEMISTRY 2012-03-14 22:50:0045[facility] MoekaweXNRTFXSEH5593-01-38 22:50:001.2[facility] IrwppieNXOGDNVFR7657-98-71 22:50:003.8[facility] GtbbofgSTJZKJOEE3534-43-24 22:50:0021[facility] KfnajlsHMWGZVMFX9080-31-67 22:50:0016.8[facility] SBTRSUNRQ2579-69-44 22:50:001.1[facility] WugyiimGRHRCLDSM9743-00-31 22:50:008.2 [facility] MublzrxXKVTNKUSZ8444-46-53 22:50:003.8[facility] HermannCHEMISTRY 2012-03-14 22:50:000.7[facility] AvjghrhWJYZVCJSR0395-16-22 22:50:84472Xuybyuqb VsgnjlxURKRGMVND7165-48-58 22:50:0099[facility] BfxltenMWXADCRYT2225-67-54 22:50:0027[facility] FtilgozWWWICQUWZ9718-59-03 22:50:59968Xjuglgox Vin QDYICFJMY3703-25-30 22:50:0015[facility] TkiepjfAFFACEWFQ5761-19-30 22:50:0024 [facility] GgspsrzHYNTOEZKC4204-30-92 22:50:0020[facility] HermannCHEMISTRY 2012-03-14 22:50:0067[facility] TkstfacBHDRPFHVQ1725-29-96 22:50:004.4[facility] VyplnomOUDSQFAGW5436-39-89 22:50:009.9[facility] LcuyvjpGBHMLJEGYN2243-91-74 22:50:0011.8[facility] JoyrqcfNYPYDSTOSQ2393-96-93 22:50:0035.9[facility] XPYYDCJTOY6421-50-80 22:50:00 Test Item Value Reference Range Interpretation Comments MCH (test code = MCH) 31.2 pg 27.0-31.0 H [facility] JkrnagyDQDUUSSPNZ3729-79-29 22:50:50922Yzowwqmk HermannHEMATOLOGY 2012-03-14 22:50:0013.1[facility] ZxqvyozSNSTNYSACV7572-35-51 22:50:0040.7[facility] PybnwtqRPJOQIPIAW7338-88-83 22:50:0014.6[facility] EwaogfwSVZBTKUBPX4613-39-92 22:50:0087.0[facility] FawtjtwTGQEDKIZWW7267-33-37 22:50:0011.7[facility] KEFGNGFXVD2427-80-17 22:50:004.68[facility] YpnjgkiJMUNJDIWWP6747-78-74 22:50:00 0.0[facility] IjiasxgMQGREMBLYO3184-27-76 22:50:000.2[facility]annHEMATOLOGY 2012-03-14 22:50:000.0[facility] GjypnojPHBYSDDXSW8998-20-77 22:50:000.4[facility] HfnaamdPTOULIKBJS4983-15-22 22:50:0010.6[facility] WpihlgyEQLKBTZBOO1200-45-21 22:50:000.7[facility] CnrrgcrWHSEIHFYRX4307-87-37 22:50:003.4[facility] FBKJUTOVFL3550-88-43 22:50:00Normal (03/14/2012 17:50:00)[facility] RANGLMTPPW1277-69-09 22:50:006.0[facility] ZrmhctxPIKDPKAUXK6114-77-43 22:50:000.0 [facility] CzfebwzTVFBEOJUHM6160-43-91 22:50:0090.4[facility] HermannHEMATOLOGY 2012-03-14 22:50:00Normal (03/14/2012 17:50:00)[facility]annCHEMISTRY 2012-03-14 22:50:00Negative *NA*(03/14/2012 17:50:00)[facility]annCHEMISTRY 2012-03-14 22:50:0045[facility] WlzpqooWLTKFPXPC4675-20-55 22:50:001.2[facility] FwdeozwSEMFMHYAX9451-76-63 22:50:003.8[facility] BzwrwtcHTSXHVZHM8204-35-05 22:50:0021[facility] FstkcfeVORNLEDKW0314-86-23 22:50:0016.8[facility] EVIMXDUPK1819-88-31 22:50:001.1[facility] MxjcmoaBPGCEVBQM6002-28-62 22:50:008.2 [facility] IwhjgqqEQHUUJHAX6940-81-57 22:50:003.8[facility] HermannCHEMISTRY 2012-03-14 22:50:000.7[facility] TryhrqtSKGDVFXTB2668-41-89 22:50:09490Mixjnszl KplpfkfIUENPYLFD4216-95-28 22:50:0099[facility] GhixtzmQFJAKBFYT9459-53-83 22:50:0027[facility] HksxwpcTKASHKKMD9769-22-27 22:50:95932Npqowwbk [facility] TAASNUUDC5085-94-67 22:50:0015[facility] InhhtleXMSAVQILY5186-99-93 22:50:0024 [facility] UbshggeCXDNXLQSD4956-97-36 22:50:0020[facility]annCHEMISTRY 2012-03-14 22:50:0067[facility] HuvgsqtEWURDOBRU4026-10-28 22:50:004.4[facility] AqsefwaSDKLBDIHF8514-93-75 22:50:009.9[facility] IkzxcueHWVJKJGOBZ7674-72-76 22:50:0011.8[facility] LxlxdftEFKXTIESBA4365-58-19 22:50:0035.9[facility] TSCCEGBVNY3400-80-65 22:50:00 Test Item Value Reference Range Interpretation Comments MCH (test code = MCH) 31.2 pg 27.0-31.0 H [facility] SvuelieCTPFYVUUNG5116-12-47 22:50:70837Mrtqnwdd HermannHEMATOLOGY 2012-03-14 22:50:0013.1[facility] GysgqzwXBIHWCPBNJ4466-59-17 22:50:0040.7[facility] XitwgtpEPDDUUYMGP5420-62-21 22:50:0014.6[facility] EmlcbqlVYBXNCSXXH0220-38-89 22:50:0087.0[facility] AkxwlabEASDYJLLFH3473-96-48 22:50:0011.7[facility] NQJCXESCXK1163-12-53 22:50:004.68[facility] VovzrxsLBRFPSYTAR9375-65-55 22:50:00 0.0[facility] CciaulcBDOEUPXQUD7609-76-31 22:50:000.2[facility]annHEMATOLOGY 2012-03-14 22:50:000.0[facility] SzxcfyhNWQWTEADRT7838-73-41 22:50:000.4[facility] UurmjhrKOTWHIUYHW8990-14-27 22:50:0010.6[facility] ObldeteTOPGXZQZPE2997-42-72 22:50:000.7[facility] IdhpqaoBYGNGVYUSZ2784-84-62 22:50:003.4[facility] SLRQZZSIEE3392-62-21 22:50:00Normal (03/14/2012 17:50:00)[facility] ZOKUUYEZNQ9529-43-52 22:50:006.0[facility] QiwzqhcAZJNSLXRHT8831-11-21 22:50:000.0 [facility] XhbukkjRRQUWAJELI8300-51-19 22:50:0090.4[facility]annHEMATOLOGY 2012-03-14 22:50:00Normal (03/14/2012 17:50:00)[facility]annCHEMISTRY 2012-03-14 22:50:00Negative *NA*(03/14/2012 17:50:00)[facility]annCHEMISTRY 2012-03-14 22:50:0045[facility] FivakuxCYWQFBTTU3743-83-88 22:50:001.2[facility] QaqjwolBWYDACPID5281-54-45 22:50:003.8[facility] VxdcqtlEPVHTYXHF7611-26-00 22:50:0021[facility] BenjppvWDOQHIWPX9126-34-63 22:50:0016.8[facility] OEATQQWEN6553-49-82 22:50:001.1[facility] KofsuzsFSMTJOUSF2169-66-47 22:50:008.2 [facility] FrirjanHAXPQBPTP2270-38-24 22:50:003.8[facility] HermannCHEMISTRY 2012-03-14 22:50:000.7[facility] ArjobztOELHLRRVQ7664-04-60 22:50:08112Wyvlvlas LztultuIWACYUEEO3008-90-30 22:50:0099[facility] DldovhqQQPKJGLMU8478-18-31 22:50:0027[facility] CytpugpBCWMCJBYV5314-47-54 22:50:21679Lrseujnd Vin GLNDHZDCN4603-56-23 22:50:0015[facility] FhaiolvPHUDVESWP8639-08-34 22:50:0024 [facility] ViotahbGEPIIDZJQ7673-72-69 22:50:0020[facility]annCHEMISTRY 2012-03-14 22:50:0067[facility] XgmbekqIZLSEBQIV8332-95-30 22:50:004.4[facility] BqptvnqUAGVPCLAI9415-94-15 22:50:009.9[facility] UqvezuvFNYZEKFYHU7062-77-13 22:50:0011.8[facility] MigsfgdPDZVLYWTKH7271-17-57 22:50:0035.9[facility] ENUUHHCGGV7942-81-85 22:50:00 Test Item Value Reference Range Interpretation Comments MCH (test code = MCH) 31.2 pg 27.0-31.0 H [facility] FaqfoizWHVUSOVIVQ3917-71-83 22:50:44962Ktkokyip HermannHEMATOLOGY 2012-03-14 22:50:0013.1[facility] YbjepmaCLSLWYIEMX4201-35-85 22:50:0040.7[facility] WmjhkbcGPOVGPHAZX0770-80-87 22:50:0014.6[facility] GfmnnlmORCVWSMXES1977-58-19 22:50:0087.0[facility] OcestvoAJEAXVNEHC0161-92-45 22:50:0011.7[facility] OCVGISOWMM7081-92-22 22:50:004.68[facility] JpjjjjdYHMSESEQAM1601-54-14 22:50:00 0.0[facility] UtscoptXIBOYOJZKT6215-70-46 22:50:000.2[facility] HermannHEMATOLOGY 2012-03-14 22:50:000.0[facility] LwhvpwdZTIQJVBKYS1499-95-66 22:50:000.4[facility] JjzbvddZCUGCGYYKL2830-91-45 22:50:0010.6[facility] ApmttcdOOAWRENAXB5404-05-28 22:50:000.7[facility] DdjsvlvQCDHVYKGMB1389-57-81 22:50:003.4[facility] YEPDQPBXVI6771-22-14 22:50:00Normal (03/14/2012 17:50:00)[facility] MCDIHRTOWJ8864-69-84 22:50:006.0[facility] KjwsdukAOOSUMKFCO6376-02-88 22:50:000.0 [facility] KgqlawfQQGDWYLMSU9093-36-89 22:50:0090.4[facility] HermannHEMATOLOGY 2012-03-14 22:50:00Normal (03/14/2012 17:50:00)[facility] HermannBEDSIDE GLUCOSE QSVWDNR5685-25-32 23:43:27099Aevuumdx HermannBEDSIDE GLUCOSE UOFZIQK6893-47-91 23:43:82383Qxzqvhax HermannBEDSIDE GLUCOSE OQNQZSU9733-65-24 23:43:56884Wlgkybmd HermannBEDSIDE GLUCOSE KWNSGJW9430-19-58 23:43:66888Mwwyzlkw HermannBEDSIDE GLUCOSE OBRQCEO3234-29-34 23:43:46301Yeznfqfo HermannBEDSIDE GLUCOSE TESTING 2011-11-30 23:43:91094Jedzpfxl HermannBEDSIDE GLUCOSE FOQQNZQ3841-39-84 17:40:00 189[facility]annBED[facility]IDE GLU[facility]SE VWFBRPP2223-37-12 17:40:82982Vdrjoytn [place] BEDSIDE GLUCOSE NIMMSDI3345-85-58 17:40:92241Rpwyvunl HermannBEDSIDE GLUCOSE ALBXKTG4017-26-28 17:40:61204Lplyzahm HermannBEDSIDE GLUCOSE PBXHPUO4573-65-03 17:40:37700Otpicjcr [facility]annBEDSIDE GLUCOSE GTNZJSG4321-61-59 17:40:33338Ckzzeaaf HermannBEDSIDE GLUCOSE YRVFVWW9533-23-57 13:34:34703Odvoguln HermannBEDSIDE GLUCOSE OVCRHCS7834-57-54 13:34:62167Fdwkuhvu HermannBEDSIDE GLUCOSE TESTING 2011-11-30 13:34:47621Qczcxsuk HermannBEDSIDE GLUCOSE VCYBTOJ8128-96-71 13:34:00 110[facility]annBED[facility] GL[facility] VWZUAPA9768-43-84 13:34:15508Jobhitmk [place] BEDSIDE GLUCOSE YWIRIRX0753-40-46 13:34:24219Lagjqsdu WnkxjpbTJETVNLGA5599-95-89 00:00:00Negative (11/28/2011 19:00:00)[facility] ImmgtcoUVZVPWKZEQ0698-25-69 00:00:00Performed (11/28/2011 19:00:00)[facility]drtpdiMPOLVPVDER0368-78-85 00:00:00Occasional /LPF (11/28/2011 19:00:00)[facility] HermannURINALYSIS 2011-11-29 00:00:00None Seen (11/28/2011 19:00:00)[facility] 2011-11-29 00:00:00Negative mg/dL (11/28/2011 19:00:00)[facility] BFWIKHLCWD0120-78-33 00:00:00 Test Item Value Reference Range Interpretation Comments UA pH (test code = UA pH) 7.0 1 5.0-8.0 N [facility]neDuakbldTMCPJCTTXH0371-21-27 00:00:00 Test Item Value Reference Range Interpretation Comments UA Spec Grav (test code = UA Spec 1.020 1 N Grav) [facility]neXzdxuktURVMUHTEBI3451-11-42 00:00:00Clear (11/28/2011 19:00:00)[facility]neTwkjksgFQGCBSHPMC2737-58-10 00:00:00Yellow *NA*(11/28/2011 19:00:00)[facility]neLrhcbbaQEKCFROGWD6153-87-22 00:00:000.2Mem[facility]oundSkjbnmfTMYYUQESZB1063-26-19 00:00:00Negative (11/28/2011 19:00:00)[facility]neEffnwlsJZQAYRPPLT4328-44-91 00:00:00Negative *NA*(11/28/2011 19:00:00)[facility]neXzcfcyuIIFVTFDWQM1047-64-86 00:00:00>=80 mg/dL *ABN*(11/28/2011 19:00:00)[facility]URINALYSIS 2011-11-29 00:00:00>=1000 mg/dL *ABN*(11/28/2011 19:00:00)[facility] YNABMUTSFX8387-52-26 00:00:00Negative (11/28/2011 19:00:00)[facility] CRCIZIBHYQ8055-01-76 00:00:00Negative (11/28/2011 19:00:00)[facility] YTMOLTSNT5313-00-76 00:00:00Negative (11/28/2011 19:00:00)[facility] AWJHHDAJIA1347-75-80 00:00:00Performed (11/28/2011 19:00:00)[facility] QBFIYMLACX8855-26-01 00:00:00Occasional /LPF (11/28/2011 19:00:00)[facility]neTlxqnceRUHVILFAYM8107-85-14 00:00:00None Seen (11/28/2011 19:00:00)[facility]neFtcwukrDGDAJSYAVM0391-19-25 00:00:00Negative mg/dL (11/28/2011 19:00:00)[facility]neDxnnsrsHIZPYRKYXO0758-52-65 00:00:00 Test Item Value Reference Range Interpretation Comments UA pH (test code = UA pH) 7.0 1 5.0-8.0 N [facility]neWujldbeIPYVZXLYXD5654-91-76 00:00:00 Test Item Value Reference Range Interpretation Comments UA Spec Grav (test code = UA Spec 1.020 1 N Grav) [facility]neNhzjlncBOAEJRIOWC9642-21-20 00:00:00Clear (11/28/2011 19:00:00)[facility]neExpoctjCRZSHBKGKH9767-12-74 00:00:00Yellow *NA*(11/28/2011 19:00:00)[facility]neGjlqldjDGECIISERW8296-14-68 00:00:000.2Mem[facility] MoundSqzlckkGBWFNKNBJU0591-60-74 00:00:00Negative (11/28/2011 19:00:00)[facility]neIzhpgkgLKXBBZOOBU2094-67-59 00:00:00Negative *NA*(11/28/2011 19:00:00)[facility]nePcfvbzhYBNABJAVWQ8818-65-63 00:00:00>=80 mg/dL *ABN*(11/28/2011 19:00:00)[facility]neannURINALYSIS 2011-11-29 00:00:00>=1000 mg/dL *ABN*(11/28/2011 19:00:00)[facility] LWVYXRXREE7271-71-43 00:00:00Negative (11/28/2011 19:00:00)[facility] NICSRBSPVX3445-01-66 00:00:00Negative (11/28/2011 19:00:00)[facility] SRIUADZHI9446-48-97 00:00:00Negative (11/28/2011 19:00:00)[facility] AFELBBUHVM2477-47-11 00:00:00Performed (11/28/2011 19:00:00)[facility] KMTEENMRDT7671-58-38 00:00:00Occasional /LPF (11/28/2011 19:00:00)[facility] ZrnwkpuLSCENTKFLF1269-05-81 00:00:00None Seen (11/28/2011 19:00:00)[facility]neEguotwlIYGUQNNDCQ0324-87-88 00:00:00Negative mg/dL (11/28/2011 19:00:00)[facility]neJqrsjnpQUVIRCHCDB6320-57-51 00:00:00 Test Item Value Reference Range Interpretation Comments UA pH (test code = UA pH) 7.0 1 5.0-8.0 N [facility] Cle[facility]neIahoqmuTVNSEJYSGQ4765-68-26 00:00:00 Test Item Value Reference Range Interpretation Comments UA Spec Grav (test code = UA Spec 1.020 1 N Grav) [facility]neOuubjbgWDXSNURWWO2940-88-54 00:00:00Clear (11/28/2011 19:00:00)[facility]neMpuzoksSHIQSZJDKT2217-81-35 00:00:00Yellow *NA*(11/28/2011 19:00:00)[facility]neGaiztdnOFAOVZEHTC6021-70-11 00:00:000.2[facility] EfpaiqaWQTNXJKYLG5173-67-00 00:00:00Negative (11/28/2011 19:00:00)[facility]neHkhbienHRCKANWZCC1446-20-07 00:00:00Negative *NA*(11/28/2011 19:00:00)[facility]neWnainjaDADLGBCXMO8164-14-92 00:00:00>=80 mg/dL *ABN*(11/28/2011 19:00:00)[facility]neannURINALYSIS 2011-11-29 00:00:00>=1000 mg/dL *ABN*(11/28/2011 19:00:00)[facility] KSPMWMATRN6406-40-01 00:00:00Negative (11/28/2011 19:00:00)[facility] RPWQOKQYGS8532-06-47 00:00:00Negative (11/28/2011 19:00:00)[facility] BCMBJYJPR6894-87-65 00:00:00Negative (11/28/2011 19:00:00)[facility] EZJNILLJPM1652-45-47 00:00:00Performed (11/28/2011 19:00:00)[facility] CDOXZNHHFT9180-47-95 00:00:00Occasional /LPF (11/28/2011 19:00:00)[facility]KfirshcUKUAAQYRXH9432-78-12 00:00:00None Seen (11/28/2011 19:00:00)[facility]RzxtfdgUWNWGPWTRN6209-50-50 00:00:00Negative mg/dL (11/28/2011 19:00:00)[facility]BzkutxkZWPKOOCMAA5228-34-28 00:00:00 Test Item Value Reference Range Interpretation Comments UA pH (test code = UA pH) 7.0 1 5.0-8.0 N [facility]neNkfmflnKLJHWIUFFG0820-59-87 00:00:00 Test Item Value Reference Range Interpretation Comments UA Spec Grav (test code = UA Spec 1.020 1 N Grav) [facility]nePzrwoqcHGLYXUNKTV4178-92-71 00:00:00Clear (11/28/2011 19:00:00)[facility]neFurmzkxBBQHSSRVIA6702-54-99 00:00:00Yellow *NA*(11/28/2011 19:00:00)[facility]HhgavyiYMGGYTVRAA4874-15-04 00:00:000.2[facility] PkzlsxgRFPLYVPVLC0237-66-26 00:00:00Negative (11/28/2011 19:00:00)[facility]neSjmxndaLZIODEFLWR4317-88-43 00:00:00Negative *NA*(11/28/2011 19:00:00)[facility] HospitalHbiwbxrHJZNZGRIUW6910-35-78 00:00:00>=80 mg/dL *ABN*(11/28/2011 19:00:00)[facility] 2011-11-29 00:00:00>=1000 mg/dL *ABN*(11/28/2011 19:00:00)[facility] YKLHKNUMFV8825-41-06 00:00:00Negative (11/28/2011 19:00:00)[facility] YUGIZDXMPO2109-22-13 00:00:00Negative (11/28/2011 19:00:00)[facility] NJDRDUPIE6187-81-09 00:00:00Negative (11/28/2011 19:00:00)[facility] MVMHLSVNYP8281-57-57 00:00:00Performed (11/28/2011 19:00:00)[facility] OKUVZWVRTH0839-31-16 00:00:00Occasional /LPF (11/28/2011 19:00:00)[facility] HospitalQfllpplPGCEVOOXKT4246-25-68 00:00:00None Seen (11/28/2011 19:00:00)[facility] HospitalAvfwnvnUSCPONIZDS3008-57-20 00:00:00Negative mg/dL (11/28/2011 19:00:00)[facility] HospitalMrrjkzuFURSKAGKMT5259-03-24 00:00:00 Test Item Value Reference Range Interpretation Comments UA pH (test code = UA pH) 7.0 1 5.0-8.0 N [facility]neXebyaccEDOYRAJWCM5020-68-60 00:00:00 Test Item Value Reference Range Interpretation Comments UA Spec Grav (test code = UA Spec 1.020 1 N Grav) [facility]neEzottblMIPTDIQFMQ3050-44-61 00:00:00Clear (11/28/2011 19:00:00)[facility]neYopsykdDGWADBYUZP2531-10-93 00:00:00Yellow *NA*(11/28/2011 19:00:00)[facility]neLjwflriCVLEINQBWG6649-69-61 00:00:000.2[facility] UpuxjgvEYORBJFKQF8205-94-98 00:00:00Negative (11/28/2011 19:00:00)[facility]neRcmyltjCWIZZILPIP2868-65-19 00:00:00Negative *NA*(11/28/2011 19:00:00)[facility] HospitalCnvxffuEFMBXZHTAQ5773-25-82 00:00:00>=80 mg/dL *ABN*(11/28/2011 19:00:00)[facility] 2011-11-29 00:00:00>=1000 mg/dL *ABN*(11/28/2011 19:00:00)[facility] YMHAYQCPZD9135-64-24 00:00:00Negative (11/28/2011 19:00:00)[facility] CCXVYXZUUI6121-52-46 00:00:00Negative (11/28/2011 19:00:00)[facility] MJAIYIJBH9262-07-79 00:00:00Negative (11/28/2011 19:00:00)[facility] FZKEOKGVKS6762-73-60 00:00:00Performed (11/28/2011 19:00:00)[facility] PCOFTEAXBP1037-03-32 00:00:00Occasional /LPF (11/28/2011 19:00:00)[facility] HospitalOchjmvvYFTETGBLYL6859-97-55 00:00:00None Seen (11/28/2011 19:00:00)[facility] HospitalDwtvoqvNZOKVJLTUQ3338-17-28 00:00:00Negative mg/dL (11/28/2011 19:00:00)[facility] HospitalSrdvtwqSKGSUAQEPE7768-64-57 00:00:00 Test Item Value Reference Range Interpretation Comments UA pH (test code = UA pH) 7.0 1 5.0-8.0 N [facility]neWxeeyltOJOVUCZKJM1610-08-75 00:00:00 Test Item Value Reference Range Interpretation Comments UA Spec Grav (test code = UA Spec 1.020 1 N Grav) [facility] HospitalSckzfjgEVCXAKSZGS2027-58-07 00:00:00Clear (11/28/2011 19:00:00)[facility] HospitalDylbnrwGNAYYQGLUI0305-65-83 00:00:00Yellow *NA*(11/28/2011 19:00:00)[facility] HospitalHyggdloUKUWQMKRDB4924-48-77 00:00:000.2[facility] JonukfkVKYTFSGFWP2266-70-64 00:00:00Negative (11/28/2011 19:00:00)[facility] HospitalCcmkfjjEIJXEACVTR9391-49-00 00:00:00Negative *NA*(11/28/2011 19:00:00)[facility] HospitalIvkgiucHRWKAIWCZO7361-60-05 00:00:00>=80 mg/dL *ABN*(11/28/2011 19:00:00)[facility] 2011-11-29 00:00:00>=1000 mg/dL *ABN*(11/28/2011 19:00:00)[facility] GRYSBAPEMO4936-91-34 00:00:00Negative (11/28/2011 19:00:00)[facility] PLRDZXDYXI6309-79-22 00:00:00Negative (11/28/2011 19:00:00)[facility] QKHFOFRQU7268-94-26 20:41:0060[facility] VbddykkQMWZYHQVS8115-61-46 20:41:0041 [facility] NfftpzxLVPRBQSSJ1823-28-75 20:41:007.45[facility]annCHEMISTRY 2011-11-28 20:41:0037.0[facility] KbesayhECFUGJFLL7685-44-06 20:41:0092.0[facility] KsdraebZAUZFEOBN0213-94-07 20:41:004[facility] VaxnzseDBAUPNOXA5732-68-69 20:41:00 28.5[facility] TfbaqucLMFSNGVBU8212-23-76 20:41:0060[facility]annCHEMISTRY 2011-11-28 20:41:0041[facility] OtfjqbyWJNJZDAAS9577-17-49 20:41:007.45[facility] XtxbqwpKRRVWMRGU9234-19-02 20:41:0037.0[facility] FboymvaUWVBQKKKH1574-59-58 20:41:0092.0[facility] QxbzpdnMFKNJZMIA7629-33-19 20:41:004[facility] JPCSWIPUY2674-67-93 20:41:0028.5[facility] HbaofowDWSEYVWVF0911-08-62 20:41:0060 [facility] LekrkkpHGPCSOZOS6477-51-39 20:41:0041[facility]annCHEMISTRY 2011-11-28 20:41:007.45[facility] DwvapzmKRJGDIZKK0359-35-99 20:41:0037.0[facility] SalmnxsLBGNRORDY7376-10-55 20:41:0092.0[facility] ShfudgeGGOJHNBZD3794-56-97 20:41:004[facility] HgexvusONYSGVPMP7846-04-81 20:41:0028.5[facility] XCGVUUKFM1020-88-50 20:41:0060[facility] PzappiyYTWOLYYJZ8079-74-89 20:41:0041 [facility] PecilneBJDEWXADF1177-60-74 20:41:007.45[facility]annCHEMISTRY 2011-11-28 20:41:0037.0[facility] CmdxqsjGEWZZPAIC7147-98-63 20:41:0092.0[facility] YzdxusjXJPZKABQS7038-05-98 20:41:004[facility] OngxttoNDWQOPTCW1463-75-73 20:41:00 28.5[facility] BmhyqjgZOTMBLXHC2926-75-07 20:41:0060[facility]annCHEMISTRY 2011-11-28 20:41:0041[facility] NhlotyuPLLCKTPYU1085-51-60 20:41:007.45[facility] BhigonwTXXCWTNPE7175-92-58 20:41:0037.0[facility] VpblgrmPGXNGRLLC1475-26-49 20:41:0092.0[facility] RjwwwamGWNEEHHZA7785-72-07 20:41:004[facility] OIGRRKYZH9534-83-73 20:41:0028.5[facility] YosiozlWNZRSBMWM6953-12-91 20:41:0060 [facility] QsrsuntMWALOTWLR1698-77-25 20:41:0041[facility]annCHEMISTRY 2011-11-28 20:41:007.45[facility] NwegkuvPBGRGICQB4909-49-56 20:41:0037.0[facility] XgjlgviKNLCKAWHB9982-47-86 20:41:0092.0[facility] SqxclzrZZTKWZEUE7725-92-37 20:41:004[facility] KucmadpSWAZYDVBN3453-38-13 20:41:0028.5[facility] JCGTOMGPK3335-92-26 20:00:001.6[facility] IlfpclrVKTSDFXIU2705-29-40 20:00:88319 [facility] EjirmueYCIOPMIPN6606-99-14 20:00:004.2[facility]annCHEMISTRY 2011-11-28 20:00:0023[facility] NsxkhjwRPBNWHLKJ3520-43-28 20:00:0098[facility] PxffkvmQBFHQVWFQ0780-35-18 20:00:003.8[facility] PxllbenJPPAHOWPT1643-21-57 20:00:24311Jefqfvxs VacqcqnZOODLLCWA8664-90-99 20:00:000.7[facility] ZIBMLNSMC1810-50-14 20:00:009[facility] WqjwcoeZDKTUNDAK0858-19-97 20:00:67845 [facility] HrxdqrdJEUIXZTMB3387-01-30 20:00:0013[facility]annCHEMISTRY 2011-11-28 20:00:0020.8[facility] AbfjulbCOGWGGGSD6867-17-66 20:00:009.3[facility] VweiwqgUCPFUDJQZ2434-71-10 20:00:006.7[facility] LmyclcwCKBLWXYUT5701-22-02 20:00:001.7[facility] PplodzmEVDQDBHEJ5874-50-45 20:00:002.5[facility] LWUDDYTZK3306-53-45 20:00:0018[facility] MvvaqqiHRTCPLIMB1614-90-61 20:00:0062 [facility] PphdogiAHUEXAJQZ2364-09-33 20:00:0032[facility]annCHEMISTRY 2011-11-28 20:00:000.7[facility] BptwekkTKYBBYMFOV1793-85-22 20:00:001+ *ABN*(11/28/2011 15:00:00)[facility] NlcoounQWLYQTQBKS9980-98-94 20:00:000.1 [facility] CadpivyBQTMFQNZIN7790-12-05 20:00:000.0[facility]annHEMATOLOGY 2011-11-28 20:00:000.0[facility] OtfhoesIQOGPXHOUM4517-45-11 20:00:00Slight *ABN*(11/28/2011 15:00:00)[facility] JnyudsfIXGLSKLKXT0361-96-40 20:00:00Slight *ABN*(11/28/2011 15:00:00)[facility] BudsujsBWCFUGVIGV6133-72-04 20:00:005.7 [facility] CnzemwkFJCKISXWLT6093-92-65 20:00:000.8[facility]annHEMATOLOGY 2011-11-28 20:00:000.2[facility] OrtxnpqUYVZFWNLGS0412-65-75 20:00:000.0[facility] AalaurxKHXVTPKVZX7318-93-21 20:00:001.9[facility] XtbkkxjBPYRIBFWWA3579-39-36 20:00:0086.2[facility] JtyqxteGDXEARYSYT3745-29-86 20:00:0011.7[facility] EDDNHKMGTV7247-15-33 20:00:0010.8[facility] YbncoemYSFTDCDNEN3546-53-66 20:00:00 161[facility] BzdifmqOVMTFVXOBL4189-02-08 20:00:0035.6[facility]annHEMATOLOGY 2011-11-28 20:00:0012.4[facility] TigedyuPSCAHXQBXM6671-20-99 20:00:00 Test Item Value Reference Range Interpretation Comments MCH (test code = MCH) 30.7 pg 27.0-31.0 N [facility] QtwlnenILGMMCFYYC7433-48-76 20:00:0086.1[facility]annHEMATOLOGY 2011-11-28 20:00:0033.6[facility] RtuughwOYCYNOMZFR1122-75-74 20:00:0012.0[facility] EvptwcjPNCZWWCNXT0852-68-96 20:00:003.90[facility] ZlsadtnOOWESXDNEV9669-69-58 20:00:006.6[facility] WuhlabnGNMPKKOEA8442-22-05 20:00:001.6[facility] AEZWUQLYR3940-80-63 20:00:68955Fhqrbbip WhwyuifMQCCLDEIY1905-39-36 20:00:004.2 [facility] YiuchmgXYDBYXNOJ8565-05-11 20:00:0023[facility]annCHEMISTRY 2011-11-28 20:00:0098[facility] YgkyxzxVEMYIRWNG8191-21-45 20:00:003.8[facility] UqmrrpuYLWKQGAFX9738-69-11 20:00:57819Otvolirj JransksFERRDWWCJ2208-55-72 20:00:000.7[facility] JwgpsleKEBTNINPS0690-35-25 20:00:009[facility] XHDBWTQNC7391-48-16 20:00:77588Gpsixqfa HwmqggbCJQIDUAWA8095-36-91 20:00:0013 [facility] UusvjwsPTBLWKXNL1990-03-80 20:00:0020.8[facility]annCHEMISTRY 2011-11-28 20:00:009.3[facility] VppchjaNEYDOUBBE8917-73-74 20:00:006.7[facility] BjpvbraLYQHSSLKU2243-16-51 20:00:001.7[facility] OxigbllPMGWXTMJV1135-53-23 20:00:002.5[facility] EpccepySHWBCNASI2550-50-91 20:00:0018[facility] WZDQQZWQA6280-59-19 20:00:0062[facility] XcvnewaZZLOCVWTY9732-73-74 20:00:0032 [facility] LrytiosENWMEZEQJ9525-07-64 20:00:000.7[facility]annHEMATOLOGY 2011-11-28 20:00:001+ *ABN*(11/28/2011 15:00:00)[facility]annHEMATOLOGY 2011-11-28 20:00:000.1[facility] KyimbrpMGZGEVGQTW3572-55-86 20:00:000.0[facility] AzwbwhkZNKGDRSLGO7928-64-44 20:00:000.0[facility] FqtmlwsYOWDQBDTHM8347-92-96 20:00:00Slight *ABN*(11/28/2011 15:00:00)[facility] BpcmrvqZNZPRFOWDL5262-06-55 20:00:00Slight *ABN*(11/28/2011 15:00:00)[facility] VjtacozYBWLZRANTS1451-11-92 20:00:005.7[facility] RgivrqsSAYDYYBFEQ9899-77-33 20:00:000.8[facility] SXNZHRTLRF6616-00-34 20:00:000.2[facility] DaccbfnWCIBUFGIHQ4387-62-85 20:00:000.0 [facility] PxtkytiHDYTJTUJOU8923-68-76 20:00:001.9[facility]annHEMATOLOGY 2011-11-28 20:00:0086.2[facility] DggxfkqTRNFVADVZI8874-51-60 20:00:0011.7[facility] YeczhyaTZVJIGZMEN4843-70-38 20:00:0010.8[facility] OmmiocpXQKZVBGAVU5423-42-63 20:00:57835Ltjpvqfm NbbpjkdQCJBODDCDE5852-41-24 20:00:0035.6[facility] HOEYLOILUY6650-60-53 20:00:0012.4[facility] AptdyycEDWLNZRVEO1806-14-34 20:00:00 Test Item Value Reference Range Interpretation Comments MCH (test code = MCH) 30.7 pg 27.0-31.0 N [facility] HjeywalMYBARRNVFJ5149-27-13 20:00:0086.1[facility]annHEMATOLOGY 2011-11-28 20:00:0033.6[facility] JdgdelvYUDRUBDNXR1447-66-36 20:00:0012.0[facility] MinzxheLQUUKELYVO4512-42-12 20:00:003.90[facility] PhhbhelZVFCWEPPBK4769-31-60 20:00:006.6[facility] IjmmxwcJTJEVCCLE5370-19-16 20:00:001.6[facility] PZXGUHYQL7363-43-11 20:00:64765Vhneukgg EbvxqhpXEJNGEZDF7068-11-83 20:00:004.2 [facility] BuhtvofLTZZXIHQX3059-18-95 20:00:0023[facility]annCHEMISTRY 2011-11-28 20:00:0098[facility] MmkwhcfLYDFSGJKU3683-00-70 20:00:003.8[facility] McegjltNHZWWIJIJ0801-01-75 20:00:56450Xjjjllze TgaqlndWJFDXNOTM3369-12-89 20:00:000.7[facility] ClqnvodYEGSPIHVX6030-67-06 20:00:009[facility] FVHESZOPF0030-22-53 20:00:96550Aizmljfl IoltlxqJHGYVFMZA9121-32-25 20:00:0013 [facility] EhtckolRZJJPULQM0503-45-22 20:00:0020.8[facility]annCHEMISTRY 2011-11-28 20:00:009.3[facility] OejbqqbJIQEVXWYV3381-94-58 20:00:006.7[facility] HqncspjIXCJCQMJT8679-99-07 20:00:001.7[facility] VpgbiznSMUUUYFAL8916-71-74 20:00:002.5[facility] GdlmehvZJWLZFFCR3038-39-80 20:00:0018[facility] NSPJQLPIX7687-31-59 20:00:0062[facility] CpxbuzuFDXYRSEPZ3501-69-82 20:00:0032 [facility] IcguwggWWPBODTGA6018-40-58 20:00:000.7[facility]annHEMATOLOGY 2011-11-28 20:00:001+ *ABN*(11/28/2011 15:00:00)[facility]annHEMATOLOGY 2011-11-28 20:00:000.1[facility] TbsitztQJNBYBJZYN8398-05-84 20:00:000.0[facility] QbszarpICZBRAQHWE3242-80-73 20:00:000.0[facility] XnnqpvpQCNYPFFALH4663-92-04 20:00:00Slight *ABN*(11/28/2011 15:00:00)[facility] JpfvdhbHZITTKCCHC8396-24-71 20:00:00Slight *ABN*(11/28/2011 15:00:00)[facility] SahausnNCRRJQAMFT0985-04-37 20:00:005.7[facility] PukewjgORRGZJNEIE7320-36-68 20:00:000.8[facility] BIGRDEBYTQ9812-72-50 20:00:000.2[facility] ZpezdtoQJXFKOPBBI0631-18-15 20:00:000.0 [facility] JubljzoGSSBALBBGM0019-13-04 20:00:001.9[facility]annHEMATOLOGY 2011-11-28 20:00:0086.2[facility] FosrnekMAXYZUFJFZ9452-02-92 20:00:0011.7[facility] BljlbpgKKHOVLNUCQ7048-82-41 20:00:0010.8[facility] JfbbhcnWLFZNESKLA0973-49-39 20:00:36602Rblqzybp WwjjimxXYPBXADDMI6068-30-15 20:00:0035.6[facility] RGZHQVDMBY0582-48-38 20:00:0012.4[facility] RytalzzZESNUOBYYQ4304-85-94 20:00:00 Test Item Value Reference Range Interpretation Comments MCH (test code = MCH) 30.7 pg 27.0-31.0 N [facility] EcsisihELKYCORLTM7560-72-93 20:00:0086.1[facility]annHEMATOLOGY 2011-11-28 20:00:0033.6[facility] EgrefjwYBRDTOUFKQ6745-42-29 20:00:0012.0[facility] XklklzhFKCPURRYHB8176-54-70 20:00:003.90[facility] EhsaeshOCJRRBEXQM9216-00-05 20:00:006.6[facility] EpxjlxvVRYKATWNW9405-09-38 20:00:001.6[facility] YGUOXCCSS3625-01-77 20:00:64204Zlqoxzhk BknpkjtTRROWARTL2280-84-48 20:00:004.2 [facility] VhqnsmoAORTQUPBS6162-88-81 20:00:0023[facility]annCHEMISTRY 2011-11-28 20:00:0098[facility] EfuswcrEKOPGIUEL0671-33-17 20:00:003.8[facility] KuuzrjfAZEJDTSOZ5727-87-05 20:00:09739Dlhzvsge JdbzksbPDWRDOMHA1431-71-36 20:00:000.7[facility] MknngidYHRRDDELD3927-85-98 20:00:009[facility] IANVNUXIR9802-63-25 20:00:48832Pfdvhcwv YlunjssMXYMZWIRS5603-69-29 20:00:0013 [facility] QhztzwdNBZMXUOHP9044-77-87 20:00:0020.8[facility]annCHEMISTRY 2011-11-28 20:00:009.3[facility] NznjubfWQKTREQQU9859-53-91 20:00:006.7[facility] HdoieffVVPPEAVRU5814-61-08 20:00:001.7[facility] LhguvwpCHBXNRAVM0254-77-06 20:00:002.5[facility] HgoncpnZTTSIRWEC2974-28-64 20:00:0018[facility] GZQNGSQCI5490-12-96 20:00:0062[facility] CjuyxenPSVYWPWXV0103-51-41 20:00:0032 [facility] QlceppaBRNJTCQAK6415-90-12 20:00:000.7[facility]annHEMATOLOGY 2011-11-28 20:00:001+ *ABN*(11/28/2011 15:00:00)[facility]annHEMATOLOGY 2011-11-28 20:00:000.1[facility] PfndozrCFJCOSEGBH8418-74-51 20:00:000.0[facility] MrfhtjsQOUFZLTUKQ9893-05-77 20:00:000.0[facility] TvptmhzUAEMOAPDJR6134-34-23 20:00:00Slight *ABN*(11/28/2011 15:00:00)[facility] YxoejbiJWXJWHWIMM8917-18-99 20:00:00Slight *ABN*(11/28/2011 15:00:00)[facility] GtfjwplGWECLEFKBX4498-69-68 20:00:005.7[facility] ZuwywttMSULHDNJBI1719-69-42 20:00:000.8[facility] UZWOULCVZK5187-26-83 20:00:000.2[facility] MklzwqgAGXCBTHVIY3671-34-77 20:00:000.0 [facility] FyjstcyAZEGVOLPID6086-46-09 20:00:001.9[facility]annHEMATOLOGY 2011-11-28 20:00:0086.2[facility] LpjrvqdGEMGAFRJYX7512-44-01 20:00:0011.7[facility] EtsbwcaKKDDFQHRQH9964-62-46 20:00:0010.8[facility] QxmqhitFDOMGHPIDI8131-34-10 20:00:45521Eknafrrl XyfzzwuLVRKDBJGQC2031-28-98 20:00:0035.6[facility] PCZEMPOMXZ3997-03-04 20:00:0012.4[facility] BuopxqsBRCIEBGJFX1546-63-46 20:00:00 Test Item Value Reference Range Interpretation Comments MCH (test code = MCH) 30.7 pg 27.0-31.0 N [facility] OesnxdcRQATWEDPSB0843-01-81 20:00:0086.1[facility]annHEMATOLOGY 2011-11-28 20:00:0033.6[facility] YtuvopaQSCNQNXPWW3155-32-10 20:00:0012.0[facility] AtuoufhNOCETFKBEI0237-20-23 20:00:003.90[facility] MxcswpjLAYLYQNCVM3530-43-64 20:00:006.6[facility] IxzzvrqIHPJZUEFU7794-23-87 20:00:001.6[facility] OATUEZDVO4129-49-18 20:00:75522Zzakjefo XrswxehQCRKOMAYU7510-01-38 20:00:004.2 [facility] DfjmtziXNBXDXTKV2878-97-50 20:00:0023[facility]annCHEMISTRY 2011-11-28 20:00:0098[facility] CpmxnotDCJADWEAN9462-18-04 20:00:003.8[facility] MglcjubPQBINBNAY2024-85-65 20:00:58607Qsjemwly TxfuevpKYGSIPWIK5257-65-24 20:00:000.7[facility] QxaxfzsHRCEHCYES3296-34-67 20:00:009[facility] CKLEFCKEX1140-96-74 20:00:31567Dsyojeuj EyhjzvzANOBHFDGG7885-10-86 20:00:0013 [facility] PvgmzgwJNWHGLPKJ8774-27-40 20:00:0020.8[facility]annCHEMISTRY 2011-11-28 20:00:009.3[facility] FxmrkfrQLEDBNBZP9942-29-71 20:00:006.7[facility] RkokjbsHLQDQPHYM8936-65-76 20:00:001.7[facility] FjyabvwBNMRPAUEK1012-16-95 20:00:002.5[facility] LbodjsjOPUERAYRS6455-83-02 20:00:0018[facility] NQYTJBRBH6709-04-50 20:00:0062[facility] RjofjydZAVXXXOOU3618-34-50 20:00:0032 [facility] ZzrrcuhFSRKIVZLC8301-94-89 20:00:000.7[facility]annHEMATOLOGY 2011-11-28 20:00:001+ *ABN*(11/28/2011 15:00:00)[facility]HE[facility] 2011-11-28 20:00:000.1[facility] BxgkjgeWSMFZAKRBB0440-59-17 20:00:000.0[facility] ZbbcbcmXMMURVALTA0372-86-61 20:00:000.0[facility] MzlaomhAFPHGQEAUH3468-49-98 20:00:00Slight *ABN*(11/28/2011 15:00:00)[facility] QjxxgofZGBRIQBZEC9056-59-14 20:00:00Slight *ABN*(11/28/2011 15:00:00)[facility] JcrjhxeVELVGUOVYQ4126-90-02 20:00:005.7[facility] KqxixlsKCOYNHACKT0438-30-44 20:00:000.8[facility] Vin VCMFSDVHXU1459-98-32 20:00:000.2[facility] ZfebgzxUXQKIBLTMO5607-20-91 20:00:000.0 [facility] SesvtelHHGIIWMKYJ2322-28-92 20:00:001.9[facility] 2011-11-28 20:00:0086.2[facility] QpcniqhFFYTEWADZV7017-33-08 20:00:0011.7[facility] XnjbvdiDBAHHFPTGQ1986-92-37 20:00:0010.8[facility] ZwafgovCMIXNGJSJO5164-85-51 20:00:43842Tzcrkwwd IjuaaoaVUIKPGXNPF9916-01-43 20:00:0035.6[facility] TDLPSMAPHQ4654-66-88 20:00:0012.4[facility] SgouoboLVSYZPYMXE9646-52-55 20:00:00 Test Item Value Reference Range Interpretation Comments MCH (test code = MCH) 30.7 pg 27.0-31.0 N [facility] PogwauqQFKFZAOXWY8318-44-13 20:00:0086.1[facility] 2011-11-28 20:00:0033.6[facility] FnhhzmrOVIAYUJKEQ3338-85-33 20:00:0012.0[facility] CpmfihkDLRIESGOIY8598-51-11 20:00:003.90[facility] WluwhduNGWPEXVQGN5126-61-77 20:00:006.6[facility] MrihsdxITPKHTVMC2927-99-18 20:00:001.6[facility] ADVRKLWRU8481-51-13 20:00:24784Ucweqnwe EdzitwdMLMOAEQNM8167-93-73 20:00:004.2 [facility] CllpslcXEBHBMONP9796-32-07 20:00:0023[facility]CHE[facility]STRY 2011-11-28 20:00:0098[facility] CofzvyjUOMIHYYWV7941-12-67 20:00:003.8[facility] OldojgkLRMQFHBCW1314-93-15 20:00:63893Foolbjoj GzzoufrRZGNAQLMV4781-39-30 20:00:000.7[facility] ZlcyadeYQITAWQGA1503-40-20 20:00:009[facility] KHWBIAKTK6872-07-58 20:00:95666Eqlatnsu MnfpyxcWHWMYOIOA7278-97-01 20:00:0013 [facility] PpnpkgbCYBKTYLPQ8166-87-52 20:00:0020.8[facility]annCHEMISTRY 2011-11-28 20:00:009.3[facility] NbsgkpqFSAIGLLYU1774-11-35 20:00:006.7[facility] FxvuwgnLTHTGFKFB6242-96-89 20:00:001.7[facility] NnfdofsBGIGFIQRS7103-79-37 20:00:002.5[facility] McwcipzLSBPCZBUS1732-00-18 20:00:0018[facility] OCUYLELDT8627-53-21 20:00:0062[facility] UfrqzfuZAJLHNMLX5705-28-67 20:00:0032 [facility] VidqxjuTHSPCNZBH1664-54-98 20:00:000.7[facility] 2011-11-28 20:00:001+ *ABN*(11/28/2011 15:00:00)[facility] 2011-11-28 20:00:000.1[facility] QnyldnaQMVUKGQNDY9002-26-77 20:00:000.0[facility] SmosuhqNJQUPJLHZQ9570-22-28 20:00:000.0[facility] YlwdflyPBDPGMUXKL5369-53-31 20:00:00Slight *ABN*(11/28/2011 15:00:00)[facility] NsweglxEJUQPABNFD3389-26-57 20:00:00Slight *ABN*(11/28/2011 15:00:00)[facility] EmnqmhmYHMMQSBPWF3693-99-17 20:00:005.7[facility] TthewpdUQEPORQNIA5336-22-16 20:00:000.8[facility] ZFBKZGWHVT6086-56-12 20:00:000.2[facility] CqwvttvFRKDHASWGR8498-25-80 20:00:000.0 [facility] OosjijoDLJPGONECN8491-79-06 20:00:001.9[facility] 2011-11-28 20:00:0086.2[facility] JnjajkiTQIWYFRDFS8737-95-10 20:00:0011.7[facility] UhqqrfeSJKCNXDJOW6127-63-18 20:00:0010.8[facility] KshmruaNEXAPRZYFD8633-77-82 20:00:51595Zcbuxkqq JsmygwmLJSTPQOVJE6858-45-50 20:00:0035.6[facility] PXRRFQQAYO4126-21-68 20:00:0012.4[facility] JkbzqvwGABIGOAIDG1250-44-89 20:00:00 Test Item Value Reference Range Interpretation Comments MCH (test code = MCH) 30.7 pg 27.0-31.0 N [facility] HmhjxnuWEBIQVCQBM9349-46-76 20:00:0086.1[facility] 2011-11-28 20:00:0033.6[facility] SiicdblGGZZYNZJIH6134-55-46 20:00:0012.0[facility] NwvzytzPQXRUGFHOE1407-40-18 20:00:003.90[facility] TkjcgezXLLLZKFCEI3714-27-39 20:00:006.6[facility] FlmyzewWICHHPCWH0669-86-12 19:51:00See Note 5*NA*(11/28/2011 14:51:00)[facility] AjebzwoLVEYCIEUD2614-72-64 19:51:00Negative *NA*(11/28/2011 14:51:00)[facility] PkxucqfXRAIKHDFJ5973-74-24 19:51:00Negative *NA*(11/28/2011 14:51:00)[facility] RmslqeiSDJFBBKSU8191-18-74 19:51:00Negative *NA*(11/28/2011 14:51:00)[facility] LakeXhokoakISOHMMDPQ9173-02-31 19:51:00Negative *NA*(11/28/2011 14:51:00)[facility] LakeIhkmktdQNEDODQHJ2164-53-17 19:51:00Negative *NA*(11/28/2011 14:51:00)[facility] LakeLxxwbaaPXEQHYDYZ4350-10-07 19:51:00Negative *NA*(11/28/2011 14:51:00)[facility] LakeUbhyfcwRMHKUJEJT2867-28-09 19:51:00Negative *NA*(11/28/2011 14:51:00)[facility] LakeUurzvozKZFQEMGEP5686-02-47 19:51:00See Note 5*NA*(11/28/2011 14:51:00)[facility] LakeHkuaqkdUDZDJZKXK7275-32-68 19:51:00Negative *NA*(11/28/2011 14:51:00)[facility] LakeUbvxvcuGDLBPBQIJ3803-77-55 19:51:00Negative *NA*(11/28/2011 14:51:00)[facility] LakeLrrdltbLQIHWQAGM4282-03-66 19:51:00Negative *NA*(11/28/2011 14:51:00)[facility] LakeBiniycxGFDDUQHRB3432-09-24 19:51:00Negative *NA*(11/28/2011 14:51:00)[facility] LakeRsnryzqCRPVHIGWW1439-73-71 19:51:00Negative *NA*(11/28/2011 14:51:00)[facility] LakeVirurwsNEXRTGVER9870-24-42 19:51:00Negative *NA*(11/28/2011 14:51:00)[facility] LakeFcsbpmwRYQBOAJJP8148-06-20 19:51:00Negative *NA*(11/28/2011 14:51:00)[facility] LakeZlbeqomQVOAHVWTI4372-46-50 19:51:00See Note 5*NA*(11/28/2011 14:51:00)[facility] LakeOmssfqbBZDNNVMMW4275-67-19 19:51:00Negative *NA*(11/28/2011 14:51:00)[facility] LakeRstmryvLCCKGCWGH4233-89-24 19:51:00Negative *NA*(11/28/2011 14:51:00)[facility] LakeSpymwbiOHNNLTJYV7946-33-48 19:51:00Negative *NA*(11/28/2011 14:51:00)[facility] LakeLxiutgfBLJKUHVFZ6594-86-86 19:51:00Negative *NA*(11/28/2011 14:51:00)[facility] LakeSjltkduPIPIHWPYP2859-77-57 19:51:00Negative *NA*(11/28/2011 14:51:00)[facility] LakeLplkpwwLYGQLAHVS4658-71-40 19:51:00Negative *NA*(11/28/2011 14:51:00)[facility] LakeYlmcwmtSBCULXAOJ9092-94-74 19:51:00Negative *NA*(11/28/2011 14:51:00)[facility] LakeIcopmpkQMTGPPDMH1333-11-56 19:51:00See Note 5*NA*(11/28/2011 14:51:00)[facility] LakeBbxquhoRSJJPHHRZ4062-33-85 19:51:00Negative *NA*(11/28/2011 14:51:00)[facility] LakeZlihjjfOSWMGHXEM7145-82-88 19:51:00Negative *NA*(11/28/2011 14:51:00)[facility] LakeEatwdgeZEMGVYNHB2695-17-23 19:51:00Negative *NA*(11/28/2011 14:51:00)[facility] LakeYuhobbrMSVQPYFZV1003-71-24 19:51:00Negative *NA*(11/28/2011 14:51:00)[facility] LakeJukihmdUBAXFEECD2077-04-47 19:51:00Negative *NA*(11/28/2011 14:51:00)[facility] LakeLbsqntuYTSWSYXJJ4124-77-22 19:51:00Negative *NA*(11/28/2011 14:51:00)[facility] LakePpfzedgZUXONSYKW0594-25-68 19:51:00Negative *NA*(11/28/2011 14:51:00)[facility] LakeOybxgevLVKUOPZQB7286-51-27 19:51:00See Note 5*NA*(11/28/2011 14:51:00)[facility] LakeBogclvkVNUXWMLZG8114-78-03 19:51:00Negative *NA*(11/28/2011 14:51:00)[facility]FuvumnjVCZOKTGZP4480-77-55 19:51:00Negative *NA*(11/28/2011 14:51:00)[facility] [place]neBtfbditNIQZLAQJL7812-24-19 19:51:00Negative *NA*(11/28/2011 14:51:00)[facility] [place]neYvrdzqqIWTEAZQWL5329-90-05 19:51:00Negative *NA*(11/28/2011 14:51:00)[facility] Cle[place]neHbyvdioGHKUCKAFU5039-33-18 19:51:00Negative *NA*(11/28/2011 14:51:00)[facility] [place]nePothrfePNTZBMEQY9799-64-29 19:51:00Negative *NA*(11/28/2011 14:51:00)[facility] LakeAfepuvbCLJLOUHQJ0674-08-20 19:51:00Negative *NA*(11/28/2011 14:51:00)[facility] [place]neJugkwmbJBXIYSLUZ0050-45-05 19:51:00See Note 5*NA*(11/28/2011 14:51:00)[facility] [place]nePpavhrfOOMJMUXNI8583-48-10 19:51:00Negative *NA*(11/28/2011 14:51:00)[facility] LakeGbzauptQNHYQDEFB5546-99-02 19:51:00Negative *NA*(11/28/2011 14:51:00)[facility] LakeAbduqkxWJDYZWNPD3961-94-88 19:51:00Negative *NA*(11/28/2011 14:51:00)[facility] [place]neSroebbpUBPFNEKTT7738-55-86 19:51:00Negative *NA*(11/28/2011 14:51:00)[facility] [place]neNsqpsffEKEDKFSOJ3377-27-43 19:51:00Negative *NA*(11/28/2011 14:51:00)[facility] [place]neWquaktzDQSCGSSWP3626-84-71 19:51:00Negative *NA*(11/28/2011 14:51:00)[facility] [place]nePougfckFNYDNOESD3804-44-31 19:51:00Negative *NA*(11/28/2011 14:51:00)[facility]2012-03-30 16:20:09657Rpduouxh HermannBEDSIDE GLUCOSE ANCMNZZ8513-27-81 16:20:84714Cakdpbdl HermannBEDSIDE GLUCOSE EOKWANF5890-77-95 16:20:20574Edanmnrp HermannBEDSIDE GLUCOSE TESTING 2011-09-18 16:20:20600Cvremrxy HermannBEDSIDE GLUCOSE EQDOBGQ8290-41-73 16:20:00 328[facility] HermannBEDSIDE GLUCOSE FVOQCNZ0818-07-06 16:20:23130Eybyvtfy [place] OKSEHPWBU5156-04-99 15:30:00Negative (09/18/2011 10:30:00)[facility] OCIGZXHJHX4776-79-60 15:30:00None Seen (09/18/2011 10:30:00)[facility] QOWDHSEYUC9210-57-64 15:30:00None Seen (09/18/2011 10:30:00)[facility] INLJYKUUDH5529-42-66 15:30:00None Seen (09/18/2011 10:30:00)[facility] PGHYMUDSAY0928-20-56 15:30:00Few /HPF *ABN*(09/18/2011 10:30:00)[facility] WBKKOPFCGF9792-44-28 15:30:00Performed (09/18/2011 10:30:00)[facility] CEFFLJFPGC1438-74-35 15:30:00Rare /LPF (09/18/2011 10:30:00)[facility] HMDRXJFCAF0703-96-55 15:30:0015 mg/dL *ABN*(09/18/2011 10:30:00)[facility] JLIHYOFSRO4885-74-39 15:30:00>=1000 mg/dL *ABN*(09/18/2011 10:30:00)[facility] [place]neGliiuvzFBVPTHUCTQ8904-99-82 15:30:00Trace *ABN*(09/18/2011 10:30:00)[facility] [place]neCyyrcpePBKFYHWPKH8249-15-61 15:30:000.2[facility] HgzxnzgENSUNZTYWB7880-23-70 15:30:00Negative (09/18/2011 10:30:00)[facility] ZplnskhTYHUEHUHRY6212-42-02 15:30:00Negative *NA*(09/18/2011 10:30:00)[facility] VnzzjrbQVPUOLDOPJ2030-09-12 15:30:00Negative (09/18/2011 10:30:00)[facility] WfcawxhTXLTDOONAJ8876-31-86 15:30:00Negative (09/18/2011 10:30:00)[facility] [place]neEahvdqzJBIZYIRQDM1932-02-37 15:30:00 Test Item Value Reference Range Interpretation Comments UA pH (test code = UA pH) 7.5 1 5.0-8.0 N [facility] WdgszouVYBCAHZRYU2609-66-60 15:30:00 Test Item Value Reference Range Interpretation Comments UA Spec Grav (test code = UA Spec 1.010 1 N Grav) [facility] Cle[place]neSkxiawyINQPXWZQQD8748-04-52 15:30:00Slight Cloudy (09/18/2011 10:30:00) [facility] [place]neVwocizaNFANLZYENI0869-12-36 15:30:00Yellow *NA*(09/18/2011 10:30:00) [facility] [place]neWolczrfAXLSEPOOY9626-20-60 15:30:00Negative (09/18/2011 10:30:00) [facility] HnzpnvzOLETISFBUP2215-19-24 15:30:00None Seen (09/18/2011 10:30:00) [facility] [place]neEpomhjqHHKKYTJVPZ5931-15-81 15:30:00None Seen (09/18/2011 10:30:00) [facility] Cle[place]neUzhwsksIRQVTQGPTG0464-11-29 15:30:00None Seen (09/18/2011 10:30:00) [facility] Cle[place]neBjxqsghRYHDKHRYDS6452-91-37 15:30:00Few /HPF *ABN*(09/18/2011 10:30:00) [facility] [place]neYjsiscxTEHXXJDMZH4584-56-25 15:30:00Performed (09/18/2011 10:30:00) [facility] Cle[place]neLpashanVJTGTXOLYZ0765-14-21 15:30:00Rare /LPF (09/18/2011 10:30:00) [facility] [place]neKeatavxQXWAZHMXEQ6093-77-00 15:30:0015 mg/dL *ABN*(09/18/2011 10:30:00) [facility] [place]neHffppneRLLRAIMAGP1581-41-48 15:30:00>=1000 mg/dL *ABN*(09/18/2011 10:30:00)[facility] [place]neFkkkdbdLZQTRJBBDX7176-06-37 15:30:00Trace *ABN*(09/18/2011 10:30:00)[facility] HospitalBflqfgiZBHFURQUCL5246-79-67 15:30:000.2[facility] UHTDQQNNCR9303-22-34 15:30:00Negative (09/18/2011 10:30:00)[facility] MGWSRCHFNE4202-50-13 15:30:00Negative *NA*(09/18/2011 10:30:00)[facility] RPVUXRBLWQ7176-44-86 15:30:00Negative (09/18/2011 10:30:00)[facility] OKUTRYSKQT4818-32-21 15:30:00Negative (09/18/2011 10:30:00)[facility] ONCNKTJAML3372-88-45 15:30:00 Test Item Value Reference Range Interpretation Comments UA pH (test code = UA pH) 7.5 1 5.0-8.0 N [facility] [place]neAybxiixAJMXBTSUJY8454-04-59 15:30:00 Test Item Value Reference Range Interpretation Comments UA Spec Grav (test code = UA Spec 1.010 1 N Grav) [facility] [place]neAksdovhXOFCYAZUBF4223-40-87 15:30:00Slight Cloudy (09/18/2011 10:30:00) [facility] [place]neUuzzxloFWSRNBRMFS9351-54-95 15:30:00Yellow *NA*(09/18/2011 10:30:00) [facility] Cle[place]neFbilaheJPGECGTZJ3453-38-67 15:30:00Negative (09/18/2011 10:30:00) [facility] HospitalSnthvbbIHLNMLNBFW9327-17-41 15:30:00None Seen (09/18/2011 10:30:00) [facility] [place]nePmgayhvLHGLWJFQJS6638-67-85 15:30:00None Seen (09/18/2011 10:30:00) [facility] HospitalBvvwtbrHJKZVTDRFR1448-15-21 15:30:00None Seen (09/18/2011 10:30:00) [facility] HospitalAxwpausMNOWJMBRWU1118-22-05 15:30:00Few /HPF *ABN*(09/18/2011 10:30:00) [facility] HospitalFpzzujeQCSORKMJDL2686-45-36 15:30:00Performed (09/18/2011 10:30:00) [facility]FcytrntDUMCXHXQSW2014-35-83 15:30:00Rare /LPF (09/18/2011 10:30:00) [facility] TexasLjyfofxZXSXKGZKCT1714-66-38 15:30:0015 mg/dL *ABN*(09/18/2011 10:30:00) [facility] HospitalFnokuhmJUCXFFBCGU1591-72-93 15:30:00>=1000 mg/dL *ABN*(09/18/2011 10:30:00)[facility] TexasBzouzmsOJDMDQZJVB7033-82-82 15:30:00Trace *ABN*(09/18/2011 10:30:00)[facility] TexasOxceityINYVPASZIK8534-70-74 15:30:000.2[facility] WAEYQQVROY1444-47-98 15:30:00Negative (09/18/2011 10:30:00)[facility] JFUAGAXLSN8346-71-94 15:30:00Negative *NA*(09/18/2011 10:30:00)[facility] DUDAQWSBBM4180-60-36 15:30:00Negative (09/18/2011 10:30:00)[facility] TYXNAWEAYA1110-39-80 15:30:00Negative (09/18/2011 10:30:00)[facility] KEJFCRHKPE8843-82-85 15:30:00 Test Item Value Reference Range Interpretation Comments UA pH (test code = UA pH) 7.5 1 5.0-8.0 N [facility] HospitalWhleeceFZOGDOKSUD0788-39-15 15:30:00 Test Item Value Reference Range Interpretation Comments UA Spec Grav (test code = UA Spec 1.010 1 N Grav) [facility] HospitalMsfcftvRYKJVXLPFW0921-46-51 15:30:00Slight Cloudy (09/18/2011 10:30:00) [facility] TexasIckmigtWUFLTISDZP0191-80-78 15:30:00Yellow *NA*(09/18/2011 10:30:00) [facility] OlhgvunOWHZQJFSL2799-59-27 15:30:00Negative (09/18/2011 10:30:00) [facility] JcxitnwYFUWRCEYFK2857-73-15 15:30:00None Seen (09/18/2011 10:30:00) [facility] QtcxwmlGHKNUBLXCZ6829-90-48 15:30:00None Seen (09/18/2011 10:30:00) [facility] JgexhcnNOQWMBYKTB0297-19-83 15:30:00None Seen (09/18/2011 10:30:00) [facility] ZsjraotGCVMTVFBIG4890-48-70 15:30:00Few /HPF *ABN*(09/18/2011 10:30:00) [facility] WdoapotRALZEWBOQX6134-49-25 15:30:00Performed (09/18/2011 10:30:00) [facility] AewrxdwVMJRRJURTC8468-30-60 15:30:00Rare /LPF (09/18/2011 10:30:00) [facility] [place]neKhhwdjsWZSIWIQHEN8110-18-74 15:30:0015 mg/dL *ABN*(09/18/2011 10:30:00) [facility] OqsyyvtNMBLLZSZFL3709-21-81 15:30:00>=1000 mg/dL *ABN*(09/18/2011 10:30:00)[facility] IaejalbCVKUCKUHGY6316-51-20 15:30:00Trace *ABN*(09/18/2011 10:30:00)[facility] TllxzufJTUFEFKQLS0440-52-83 15:30:000.2[facility] Vin XEGUEHZWCT2451-47-02 15:30:00Negative (09/18/2011 10:30:00)[facility] [place] QFJQIQXXQG5973-07-97 15:30:00Negative *NA*(09/18/2011 10:30:00)[facility] Vin SCNJUENTIS8196-14-07 15:30:00Negative (09/18/2011 10:30:00)[facility] Vin OOBZGXFWEU7155-26-02 15:30:00Negative (09/18/2011 10:30:00)[facility] JPFKAGAVKV3634-47-08 15:30:00 Test Item Value Reference Range Interpretation Comments UA pH (test code = UA pH) 7.5 1 5.0-8.0 N [facility] [place]neSgvfihjYBYASKVPMY5423-21-27 15:30:00 Test Item Value Reference Range Interpretation Comments UA Spec Grav (test code = UA Spec 1.010 1 N Grav) [facility] [place]neWenwxdmGYLOPNOLRA9990-09-17 15:30:00Slight Cloudy (09/18/2011 10:30:00) [facility] HospitalYpckcdbUJTPNPAKKW4337-14-13 15:30:00Yellow *NA*(09/18/2011 10:30:00) [facility] [place]neUqdggfsLXCTMELQT2971-16-39 15:30:00Negative (09/18/2011 10:30:00) [facility] [place]neOnfmguiMZCZWQIRKV2864-15-50 15:30:00None Seen (09/18/2011 10:30:00) [facility] [place]neQpjaoqjJBGHUILNRU9963-73-05 15:30:00None Seen (09/18/2011 10:30:00) [facility] HospitalGqqevphLZZUOKIWGL1223-53-21 15:30:00None Seen (09/18/2011 10:30:00) [facility] HospitalWtpffolBDEPHXWKVI4366-24-29 15:30:00Few /HPF *ABN*(09/18/2011 10:30:00) [facility] [place]neLamgclfADCRXBXZIL6456-63-12 15:30:00Performed (09/18/2011 10:30:00) [facility] HospitalVxfvqotGNUUPNKQNZ6809-48-66 15:30:00Rare /LPF (09/18/2011 10:30:00) [facility] HospitalVavjwjeRBFIFWXPDK1808-93-20 15:30:0015 mg/dL *ABN*(09/18/2011 10:30:00) [facility] HospitalCcwzkycJLEBTYCCXP4841-06-00 15:30:00>=1000 mg/dL *ABN*(09/18/2011 10:30:00)[facility] [place]neFalsjtnHSCEFUQVFC5454-15-16 15:30:00Trace *ABN*(09/18/2011 10:30:00)[facility] EdstkwqQILLVFWPIM2041-36-96 15:30:000.2[facility] BANLOHYNTH2946-81-29 15:30:00Negative (09/18/2011 10:30:00)[facility] ANJMCLPUTR1770-75-52 15:30:00Negative *NA*(09/18/2011 10:30:00)[facility] [place] EKYPDJQOYK0340-45-66 15:30:00Negative (09/18/2011 10:30:00)[facility] [place] IVFAXTXCZZ5350-19-78 15:30:00Negative (09/18/2011 10:30:00)[facility] EFVDZMSTXD1620-97-22 15:30:00 Test Item Value Reference Range Interpretation Comments UA pH (test code = UA pH) 7.5 1 5.0-8.0 N [facility] DqlfrjdEXBZPLLGHS1773-71-48 15:30:00 Test Item Value Reference Range Interpretation Comments UA Spec Grav (test code = UA Spec 1.010 1 N Grav) [facility] MkltodhILREQZQRGY7884-33-88 15:30:00Slight Cloudy (09/18/2011 10:30:00) [facility] Cle[place]neQalpmvkYHFVVMBBNJ0903-96-46 15:30:00Yellow *NA*(09/18/2011 10:30:00) [facility] Cle[place]neYxslyaeMJBMIPKGF7247-65-27 15:30:00Negative (09/18/2011 10:30:00) [facility] GoyhkziJONFVGWBUA7863-99-30 15:30:00None Seen (09/18/2011 10:30:00) [facility] [place]neXdqdmdnLQXUSXGKVC9859-32-77 15:30:00None Seen (09/18/2011 10:30:00) [facility] ItbhocsDYEBCSNJSY1745-38-27 15:30:00None Seen (09/18/2011 10:30:00) [facility] [place]neVeujlcjQJUDZUJOAI3092-34-66 15:30:00Few /HPF *ABN*(09/18/2011 10:30:00) [facility] [place]neFveqzzhQAMONEBXZU1928-75-34 15:30:00Performed (09/18/2011 10:30:00) [facility] [place]neNnahmolMQKOJIPNBW3512-05-30 15:30:00Rare /LPF (09/18/2011 10:30:00) [facility] [place]neVjxkxxsFVEPODEFSE1819-78-50 15:30:0015 mg/dL *ABN*(09/18/2011 10:30:00) [facility] [place]neResbwloSVMJBFGYLX5390-01-28 15:30:00>=1000 mg/dL *ABN*(09/18/2011 10:30:00)[facility] Cle[place]neHytzpcnAGHEGVYZGC6274-66-82 15:30:00Trace *ABN*(09/18/2011 10:30:00)[facility] [place]neEqlwiivAMJWYRGJEN7486-18-62 15:30:000.2[facility] TMPSSOVUAB5866-96-80 15:30:00Negative (09/18/2011 10:30:00)[facility] WLUZOMLKRP5759-68-18 15:30:00Negative *NA*(09/18/2011 10:30:00)[facility] KNFBKRSULM9858-33-59 15:30:00Negative (09/18/2011 10:30:00)[facility] EGAMXZBHEG6596-76-94 15:30:00Negative (09/18/2011 10:30:00)[facility] PDIWGYLUVU7243-50-90 15:30:00 Test Item Value Reference Range Interpretation Comments UA pH (test code = UA pH) 7.5 1 5.0-8.0 N [facility] Cle[place]neTirveeuEFRJEBBYPC2567-97-03 15:30:00 Test Item Value Reference Range Interpretation Comments UA Spec Grav (test code = UA Spec 1.010 1 N Grav) [facility] Cle[place]neErwcgsiMLFPBYRJMV1457-17-30 15:30:00Slight Cloudy (09/18/2011 10:30:00) [facility] Cle[place]neHelazsbQCBNGZBLMF7774-71-47 15:30:00Yellow *NA*(09/18/2011 10:30:00) [facility] Cle[place]neGuztyjbFHMKORONS8459-76-89 14:07:004.4[facility] HermannCHEMISTRY 2011-09-18 14:07:001.6[facility] ImgsfvpQKZBADUKO4727-33-27 14:07:004.4[facility] MuzngquCAXTXOMHB3277-77-81 14:07:001.[facility]orial TjlewdxRZPITEEGE3816-58-35 14:07:004.4[facility] WxkzsfbRSBNMADGD0364-45-58 14:07:001.[facility] Vin MFIZJNWQS1606-26-82 14:07:004.4[facility] StgvsxlRUPFMTVIZ2982-54-46 14:07:001.6 [facility] VvgfsjyYILJRLKUI8367-23-18 14:07:004.4[facility] HermannCHEMISTRY 2011-09-18 14:07:001.6[facility] NnhrdctQKABDERWE5768-50-41 14:07:004.4[facility] QftkfstKECXVBUQB4892-19-22 14:07:001.6[facility] HermannBEDSIDE GLUCOSE TESTING 2011-09-18 14:01:00>400[facility]annBEDSIDE GLUCOSE YOQERUR3644-47-12 14:01:00>400[facility]annBEDSIDE GLUCOSE OQQKEAM0707-76-15 14:01:00>400 [facility]annBEDSIDE GLUCOSE AFNOVOG7625-91-07 14:01:00>400[facility] HermannBEDSIDE GLUCOSE DQDVKOQ4851-13-63 14:01:00>400[facility]annBEDSIDE GLUCOSE KIVNMHW5935-72-17 14:01:00>400[facility] OcivdpuCEAYVYAJV0860-33-18 13:52:0024[facility] FeatvsaRDLQKLWJN0026-43-71 13:52:0032.0[facility] XYBNEYENJ6124-75-44 13:52:0044[facility] QgknhrzKBWUMKTIB4384-56-38 13:52:007 [facility] PiyblltUIJLAIDUS7116-66-14 13:52:0048.0[facility] HermannCHEMISTRY 2011-09-18 13:52:0037.0[facility] JyxmoaeNNKLOTEAN9454-05-46 13:52:007.47[facility] AlnaamwAHGQQWZFI3516-95-50 13:52:0010.1[facility] TujshiaECJZHPPAT5387-06-58 13:52:0092[facility] HnnalzhJOPMBLDDU3472-95-52 13:52:0030[facility] RXPPZAIPE9994-24-34 13:52:003.5[facility] TmgfnwvJHKDKVIKZ3192-76-67 13:52:57909 [facility] UtcpblpCHBSGSPGS4597-81-27 13:52:001.3[facility] HermannCHEMISTRY 2011-09-18 13:52:85307Cizjubxd IqbcvcaQPVXNURDZ4955-65-90 13:52:0017[facility] PddrzsvPEAXKTBNZ7495-25-11 13:52:0014.5[facility] QeoekccDXVEYQUVDF2721-16-31 13:52:0012.0[facility] KifxhqvWEXUUSEHNH6832-46-27 13:52:23011Gpphdzkr [place] ZRHNWTXAUN4192-52-47 13:52:0033.7[facility] IidussoQDLGDXFCLV6632-44-98 13:52:00 Test Item Value Reference Range Interpretation Comments MCH (test code = MCH) 28.5 pg 27.0-31.0 N [facility] EwefvbzJXYSMBJBSC7152-50-76 13:52:0015.1[facility] HermannHEMATOLOGY 2011-09-18 13:52:0084.6[facility] ZsvczxrJFJZGYZPKM4975-66-17 13:52:0036.4[facility] NdiljiwDLUIVLFXFV0072-73-08 13:52:0012.3[facility] NdgkmalHZHVFOPAUG4119-11-60 13:52:004.30[facility] FkfzchxNJXONOJIVA3817-71-36 13:52:0011.7[facility] [place] QMDYAAABIK5359-90-66 13:52:002.9[facility] ZfpdypgFGAOYWZDRR1959-19-40 13:52:000.2 [facility] PmnoqklYIBFPGBMJR3827-56-32 13:52:000.0[facility] HermannHEMATOLOGY 2011-09-18 13:52:000.0[facility] SdvznhmUMWATPDDRP2779-75-03 13:52:000.3[facility] CcsfbftLGLLJRFXDA0912-81-99 13:52:0092.0[facility] BjwazrcXBAWYXXGHJ3736-48-50 13:52:004.9[facility] QjgygedBLPTXBCYVX8199-37-48 13:52:00Rare *ABN*(09/18/2011 08:52:00)[facility] VlilpjwLYARMMVPUS1278-78-39 13:52:00Slight *ABN*(09/18/2011 08:52:00)[facility] DlchtglLUBOEGGQYO7570-51-09 13:52:001+ *ABN*(09/18/2011 08:52:00)[facility] VhiqpyiWGSFPIRHSM3615-18-07 13:52:001+ *ABN*(09/18/2011 08:52:00)[facility] OacyrflTWTYAWUNYM1398-60-88 13:52:000.6[facility] QKAKRPMEKQ0772-99-88 13:52:0010.8[facility] YellmbfLRLFXOPKLJ7982-72-68 13:52:00 0.0[facility] LzjpyrvDSLNIVVQTZ2947-04-25 13:52:001+ *ABN*(09/18/2011 08:52:00) [facility] VdudkdwKNSHRVHGTB3282-89-16 13:52:00Negative *NA*(09/18/2011 08:52:00) [facility] WjjnjkqEGDQDYLNJ2793-91-02 13:52:0024[facility] HermannCHEMISTRY 2011-09-18 13:52:0032.0[facility] ChsyvwkOOOQUXUWO6878-46-09 13:52:0044[facility] YfeafxiXFVWOTYSO4601-44-28 13:52:007[facility] OxkuqliECQCJIYKY0123-30-77 13:52:00 48.0[facility] HdhrbkfZLWFXTWZY6750-55-94 13:52:0037.0[facility] HermannCHEMISTRY 2011-09-18 13:52:007.47[facility] QlmvcewYECCZLGVO9578-25-48 13:52:0010.1[facility] YkxmqmlPPIVOERBT2952-00-70 13:52:0092[facility] CwbcwgeOTAZXCPEF0319-43-95 13:52:0030[facility] HyzkkagCYEGRLFZE6314-36-89 13:52:003.5[facility] VYLJHCXIV5304-77-96 13:52:84772Ryypzczv YceqkwmUGOPHSCHZ1454-82-21 13:52:001.3 [facility] SqpuakdVQQGQVROT3748-31-45 13:52:73540Yebcsmjz HermannCHEMISTRY 2011-09-18 13:52:0017[facility] EoychvjQOBGQXEUN0488-66-56 13:52:0014.5[facility] NvvjhpsICPQAIAVWR1079-17-74 13:52:0012.0[facility] WabloemRNSWESFGHD4349-56-33 13:52:13541Qwespoyo GkcqiezFPSIQOAXYN6158-12-39 13:52:0033.7[facility] IDJGOPVQHU8965-26-70 13:52:00 Test Item Value Reference Range Interpretation Comments MCH (test code = MCH) 28.5 pg 27.0-31.0 N [facility] KbvydzfMZZRYTYGRE9147-25-01 13:52:0015.1[facility] HermannHEMATOLOGY 2011-09-18 13:52:0084.6[facility] EgtcvsuUVPCFGTQZM9720-46-41 13:52:0036.4[facility] VmzvxfkOPSKFGPZUY7539-48-82 13:52:0012.3[facility] NxtsooqXPAZAGDACI5843-16-82 13:52:004.30[facility] IasjsvtDOJHNAFDRV9808-52-61 13:52:0011.7[facility] [place] DMXKQRKRPC1033-88-91 13:52:002.9[facility] TnqynomLZYJPECTOJ3468-29-02 13:52:000.2 [facility] JdkmmokVEPPRECJVG6676-77-48 13:52:000.0[facility] HermannHEMATOLOGY 2011-09-18 13:52:000.0[facility] DnhsssvHCDQDZAPUO7196-95-32 13:52:000.3[facility] LkxysmdSORJXSPRRI5340-62-78 13:52:0092.0[facility] YvplnawMJMLRLTSDX0523-54-87 13:52:004.9[facility] QmqiyoqUWHVQSVOMZ5350-51-35 13:52:00Rare *ABN*(09/18/2011 08:52:00)[facility] UrriugbBSRIMFCRRG3943-19-49 13:52:00Slight *ABN*(09/18/2011 08:52:00)[facility] BrtydmlCPXKMOROYH2963-22-31 13:52:001+ *ABN*(09/18/2011 08:52:00)[facility] RjiybxgKPDTZWTQVY5595-53-78 13:52:001+ *ABN*(09/18/2011 08:52:00)[facility] DtivuljCUXEMNUPOA1811-97-93 13:52:000.6[facility] VFQPXOVOLJ1025-51-54 13:52:0010.8[facility] PdsjtncDWFMDCVHVQ2436-23-04 13:52:00 0.0[facility] BojelsoBUGIBCUYBT7418-95-96 13:52:001+ *ABN*(09/18/2011 08:52:00) [facility] SkzpglfQBNQDBVENV5405-79-66 13:52:00Negative *NA*(09/18/2011 08:52:00) [facility] UjlaxfwSNCASBTNR6172-17-20 13:52:0024[facility]annCHEMISTRY 2011-09-18 13:52:0032.0[facility] ThtekwbHDETEZBBD6167-32-61 13:52:0044[facility] NwnfdxgJYSOGGLGN7355-72-08 13:52:007[facility] VqhykdfFNYYAEWON6291-06-17 13:52:00 48.0[facility] OrysjwfPPMWORAFK7240-30-32 13:52:0037.0[facility]annCHEMISTRY 2011-09-18 13:52:007.47[facility] QlpkxjoAPXNZWJKW9320-73-95 13:52:0010.1[facility] GqlvyzpZKOJSXOJL3694-34-87 13:52:0092[facility] PbatoapVGEVJVHSV6431-57-50 13:52:0030[facility] OfzdnbkFEZHUGEXO4102-20-01 13:52:003.5[facility] NSVAAYOLC9639-70-77 13:52:46866Zenhhwyz EatcdsjILFLUEBHO8089-06-35 13:52:001.3 [facility] QbpbqseBULSMMCEG6705-13-63 13:52:66324Vdqtzeyl HermannCHEMISTRY 2011-09-18 13:52:0017[facility] QdezrsdWZROKLUFF9018-76-95 13:52:0014.5[facility] EjvlztgCWABUBZOCF7225-45-10 13:52:0012.0[facility] LumkcrtNTCGCROUTU8129-06-30 13:52:62213Xtjvsrfc EhqmlgsYIZXNAIWTJ3767-98-97 13:52:0033.7[facility] TBKASWUKRW5062-05-67 13:52:00 Test Item Value Reference Range Interpretation Comments MCH (test code = MCH) 28.5 pg 27.0-31.0 N [facility] YpcymfaIUVNWSLVEA6952-26-37 13:52:0015.1[facility]annHEMATOLOGY 2011-09-18 13:52:0084.6[facility] NdfstukTYVBYCUJWF4453-54-35 13:52:0036.4[facility] PzqufmhNDLBJMBSFV2996-71-18 13:52:0012.3[facility] PwhpdefOTOKIRENWG0761-35-18 13:52:004.30[facility] HjgmdpxNXXARIHTIO6915-13-87 13:52:0011.7[facility] XWJMVXTPQU8633-02-64 13:52:002.9[facility] SqvaciwLIHZAUOMVZ5302-83-79 13:52:000.2 [facility] EmrvewtTCOQSNNBCX5103-81-35 13:52:000.0[facility]annHEMATOLOGY 2011-09-18 13:52:000.0[facility] HsnmjkyYIQXFPFXHN2674-95-12 13:52:000.3[facility] RespedoISGYQDUANG2803-08-00 13:52:0092.0[facility] DrqzvynAACVIUURKS7174-93-42 13:52:004.9[facility] AmbrzemEASIWZKQBW2284-10-91 13:52:00Rare *ABN*(09/18/2011 08:52:00)[facility] UnzotadHDEHCPMKDT1360-22-77 13:52:00Slight *ABN*(09/18/2011 08:52:00)[facility] MgwgaqxTRAVBEPXTH8194-68-43 13:52:001+ *ABN*(09/18/2011 08:52:00)[facility] UrxnbcoFXWWWAPIOS0667-67-88 13:52:001+ *ABN*(09/18/2011 08:52:00)[facility] YtazbvtRKMEGAXUTL0105-96-51 13:52:000.6[facility] CVEZIPLDJE2464-48-11 13:52:0010.8[facility] XmmfjifYAKMLNOFJL3622-30-97 13:52:00 0.0[facility] FehwgqxCKLUMJIXQZ8286-34-73 13:52:001+ *ABN*(09/18/2011 08:52:00) [facility] OupsmtqSACZRDDVKG1590-82-24 13:52:00Negative *NA*(09/18/2011 08:52:00) [facility] GhlpfvcIGWMNVVTR5945-55-51 13:52:0024[facility]annCHEMISTRY 2011-09-18 13:52:0032.0[facility] UdploywWQNRBUYKJ3659-90-63 13:52:0044[facility] DwkmzrxZSWCFYDJB8946-75-25 13:52:007[facility] PkdvrlxLJCEPDIPA8043-56-65 13:52:00 48.0[facility] AihyijgEFTHHINXF2468-17-93 13:52:0037.0[facility] HermannCHEMISTRY 2011-09-18 13:52:007.47[facility] CvxeyhcXGGKEZGIP3178-25-26 13:52:0010.1[facility] IeujnccOCHOSQNQK9077-71-86 13:52:0092[facility] AdzerllYXOJHQCBZ6879-40-87 13:52:0030[facility] CqbwpmbBULBSCUKA8164-45-83 13:52:003.5[facility] MBLNPALPZ2186-96-64 13:52:56698Ssxirhah UombokiDAJLSZBKB5319-24-57 13:52:001.3 [facility] NzrrcsfAKPNLZMMI7338-62-99 13:52:00186Thqkyhyl HermannCHEMISTRY 2011-09-18 13:52:0017[facility] RwiapvtQVLRDRJMX8412-54-34 13:52:0014.5[facility] MuprrzcYPVYNBJTTR1481-83-61 13:52:0012.0[facility] SacrotsGMQMISDTQK7519-24-61 13:52:93080Hofklmbt HfqtvviFRNXEJOZZI4035-16-95 13:52:0033.7[facility] COSNSBEHJH8630-48-04 13:52:00 Test Item Value Reference Range Interpretation Comments MCH (test code = MCH) 28.5 pg 27.0-31.0 N [facility] NamzxxpVWUCQAHONI0379-55-90 13:52:0015.1[facility]annHEMATOLOGY 2011-09-18 13:52:0084.6[facility] JkxegvlNVYSXWZJBX5850-85-74 13:52:0036.4[facility] ZudnawfAPOBBTBAPK0630-63-48 13:52:0012.3[facility] GdmxeqgFULOMCGZSP9065-46-69 13:52:004.30[facility] PfzzdmnIYATQMUUOX1465-59-21 13:52:0011.7[facility] IUMQNUMHXZ2916-22-02 13:52:002.9[facility] UctspjfEXVWATDABC7224-92-62 13:52:000.2 [facility] EnvslgaQLVUVWGJPN7032-82-07 13:52:000.0[facility]annHEMATOLOGY 2011-09-18 13:52:000.0[facility] DvavlwzOLRLJERZOD9704-43-53 13:52:000.3[facility] EvemygcZQAQMJLLOP3216-88-97 13:52:0092.0[facility] WnctcuoVQALURMZJH9043-00-07 13:52:004.9[facility] WhrxketIDKQGRCNGW8875-09-57 13:52:00Rare *ABN*(09/18/2011 08:52:00)[facility] XujbowxKJKPPKXIVE7749-90-42 13:52:00Slight *ABN*(09/18/2011 08:52:00)[facility] WdimycrLQZIAJEDBE8912-77-14 13:52:001+ *ABN*(09/18/2011 08:52:00)[facility] RvhtjijHVPDLEGNQZ3106-29-54 13:52:001+ *ABN*(09/18/2011 08:52:00)[facility] QwuknceQXZAOCAUXU3093-94-81 13:52:000.6[facility] ZWPKNHADNU9927-96-24 13:52:0010.8[facility] UaarupgXBNSACQJSG3301-87-31 13:52:00 0.0[facility] XplxkqlNOAAUVKQWD1428-47-88 13:52:001+ *ABN*(09/18/2011 08:52:00) [facility] LxdzomyBCIFTZAQKX5982-61-11 13:52:00Negative *NA*(09/18/2011 08:52:00) [facility] VglpvaqVCAWNZTTC7640-12-75 13:52:0024[facility]annCHEMISTRY 2011-09-18 13:52:0032.0[facility] FciadikERQGXFIQZ4288-29-46 13:52:0044[facility] HgjewnwCJSQGAWDQ4949-27-82 13:52:007[facility] MoujpujVUTMPWFLW9825-28-56 13:52:00 48.0[facility] GwrrkrwMEZZVJCMZ1714-70-68 13:52:0037.0[facility] HermannCHEMISTRY 2011-09-18 13:52:007.47[facility] JxulksiRCSQJNGFD4083-52-69 13:52:0010.1[facility] FlnxfgiHITYQKUUK3826-83-34 13:52:0092[facility] OuuduraQXMZOWNCS8734-53-81 13:52:0030[facility] ZnhmtnxYGFVWIJEG1246-17-35 13:52:003.5[facility] MZDXSAVJW5958-26-83 13:52:35368Mzqekydh IppzrnnPXHLASRCL1597-35-67 13:52:001.3 [facility] ZsldmqnFLDAJKKCC8802-53-48 13:52:79402Ytcvscvu HermannCHEMISTRY 2011-09-18 13:52:0017[facility] KbmmvycHKCROSWWL4122-41-03 13:52:0014.5[facility] DxzjpekCBTBSOBTMI1513-14-58 13:52:0012.0[facility] QstwexqMVWKQXUOYL5253-57-94 13:52:00778Pxsmsbez WmzibykHDWLBHCJSJ5820-21-22 13:52:0033.7[facility] MCNJSLQBIW9144-43-01 13:52:00 Test Item Value Reference Range Interpretation Comments MCH (test code = MCH) 28.5 pg 27.0-31.0 N [facility] LhqgltoKEJVJQSKLE6306-70-08 13:52:0015.1[facility] HermannHEMATOLOGY 2011-09-18 13:52:0084.6[facility] JqnptpoILRTRKEWIL1351-64-81 13:52:0036.4[facility] VzhzzdvYVPZUYZCPI9459-14-96 13:52:0012.3[facility] TlwrhxoVGKLUKEEAM6092-10-24 13:52:004.30[facility] SrlfeztDHZHIZKSPN6190-25-39 13:52:0011.7[facility] DBSRYIQYQP8157-05-15 13:52:002.9[facility] IfcppyoWALCXQJMWH8566-05-56 13:52:000.2 [facility] KnndbvbREGPXIXLCH1856-41-55 13:52:000.0[facility] HermannHEMATOLOGY 2011-09-18 13:52:000.0[facility] YhrxifsCKKBETVZCA0660-05-39 13:52:000.3[facility] XkoalomOUFTJQMVPC4992-76-27 13:52:0092.0[facility] JhqcrjyEAKNYDPXRE9112-58-57 13:52:004.9[facility] TxavtgkOAFBKDVIEX6971-97-15 13:52:00Rare *ABN*(09/18/2011 08:52:00)[facility] IieyevlJTGDJWHYNZ4165-32-87 13:52:00Slight *ABN*(09/18/2011 08:52:00)[facility] MenbvpcFCCTUSKBWM1318-68-00 13:52:001+ *ABN*(09/18/2011 08:52:00)[facility] TjuncazLFPHHAROMW3215-13-64 13:52:001+ *ABN*(09/18/2011 08:52:00)[facility] ZflxpnrMGNYZMLHRD7988-82-87 13:52:000.6[facility] GEALACDZXN8969-82-51 13:52:0010.8[facility] AqgslzyREHTYFXTPS2116-96-78 13:52:00 0.0[facility] XkygofrKVBKAIVQVC6415-61-22 13:52:001+ *ABN*(09/18/2011 08:52:00) [facility] SllqvaxQEVOVEEMPD5832-81-28 13:52:00Negative *NA*(09/18/2011 08:52:00) [facility] CkdcnatIHIGXPNCI9261-21-28 13:52:0024[facility]annCHEMISTRY 2011-09-18 13:52:0032.0[facility] QlhvakeSTCLVCJHP6289-36-15 13:52:0044[facility] YzmcdjcRLQFWNWSZ8716-18-53 13:52:007[facility] UkunvjvDPJJYGANR8566-12-44 13:52:00 48.0[facility] BhzrhecWHBCRLOUR8475-81-98 13:52:0037.0[facility] HermannCHEMISTRY 2011-09-18 13:52:007.47[facility] NujmmoyIINJUEQPI3144-05-69 13:52:0010.1[facility] JkzouqiDNXBILLZK6021-28-43 13:52:0092[facility] AuuxjdzVXBNOGENY2477-56-74 13:52:0030[facility] TtjgihmXXZLLSMBH5310-32-02 13:52:003.5[facility] CRWHIFAXQ6479-64-29 13:52:84717Qddylsji KaohnatXFFNHJBZJ9764-20-59 13:52:001.3 [facility] YxvhnycTUGDQPUII2901-74-71 13:52:10947Hogzjmlp HermannCHEMISTRY 2011-09-18 13:52:0017[facility] WcxyxfeKGLWWMYJO0916-49-60 13:52:0014.5[facility] IhsjvprZHNLMDXRDF0714-78-41 13:52:0012.0[facility] RrctalxUGCLAFIGKX5075-40-66 13:52:93379Bapldykk RtnpofbCYHYGUKOEI8677-70-43 13:52:0033.7[facility] ZVMEPDQKKK1952-46-38 13:52:00 Test Item Value Reference Range Interpretation Comments MCH (test code = MCH) 28.5 pg 27.0-31.0 N [facility] CkpepekJMZQSLFQZK5847-59-45 13:52:0015.1[facility] HermannHEMATOLOGY 2011-09-18 13:52:0084.6[facility] TslejkvBGUKXFTRCA4782-50-21 13:52:0036.4[facility] LweoodhLHSBYKOOKN2514-52-06 13:52:0012.3[facility] DtomxjsQCCPNPTMHT0696-33-20 13:52:004.30[facility] DrfndrwIYDBHZIAKQ4894-03-85 13:52:0011.7[facility] RUHKVMHEHE5421-32-66 13:52:002.9[facility] LcatobpNXQSMYZSNY3880-37-69 13:52:000.2 [facility] IlsycqxBKBROOFQSW2927-61-43 13:52:000.0[facility]annHEMATOLOGY 2011-09-18 13:52:000.0[facility] XbtgchbHASBIRZGZU3529-12-04 13:52:000.3[facility] VnfpnvwJGDCMCRNDJ8541-24-60 13:52:0092.0[facility] KwuwoddQUNJCHYOMN1319-09-80 13:52:004.9[facility] DbpbanlQPODHGQHIC8127-48-57 13:52:00Rare *ABN*(09/18/2011 08:52:00)[facility] OgopkpzUUOSKRXVOQ1887-15-68 13:52:00Slight *ABN*(09/18/2011 08:52:00)[facility] QugvuurUNZCYCMGRD8385-84-02 13:52:001+ *ABN*(09/18/2011 08:52:00)[facility] CvelrkrFEWEYFTBAD8801-31-34 13:52:001+ *ABN*(09/18/2011 08:52:00)[facility] XabrgkpEZGJAZMTBH5993-66-39 13:52:000.6[facility] RWCMUCJMPW7159-68-09 13:52:0010.8[facility] GmtwmwvCOXSWCVLTX6715-62-34 13:52:00 0.0[facility] UmxsgdfGQBTITXDGR1332-36-92 13:52:001+ *ABN*(09/18/2011 08:52:00) [facility] EuivpsaRVTDTZKRVE3168-83-17 13:52:00Negative *NA*(09/18/2011 08:52:00) [facility]annBEDSIDE GLUCOSE EUDOCIU4678-56-32 17:34:79596Zmjtuoeq [facility] BEDSIDE GLUCOSE EXZMKTZ2246-61-08 17:34:39611Gtbqjexj HermannBEDSIDE GLUCOSE JLCBWCE3319-72-80 17:34:61916Srnxlego HermannBEDSIDE GLUCOSE VLZSMQL9339-30-23 17:34:24303Gadfjojq HermannBEDSIDE GLUCOSE MJRHDVF4489-00-52 17:34:26217Bagjryaa HermannBEDSIDE GLUCOSE AVRANBE4166-06-67 17:34:44620Btvhejpm HermannBEDSIDE GLUCOSE LOJGEVW4008-09-26 11:43:0091[facility]annBEDSIDE GLUCOSE TESTING 2011-09-09 11:43:0091[facility]annBEDSIDE GLUCOSE SOFSLCU6741-39-25 11:43:00 91[facility]annBEDSIDE GLUCOSE XXACLIK2020-49-76 11:43:0091[facility] BEDSIDE GLUCOSE BYZXXNK4663-21-27 11:43:0091[facility]annBEDSIDE GLUCOSE NWOLUUA7513-16-87 11:43:0091[facility]annBEDSIDE GLUCOSE NJOOFSM5375-47-32 02:45:87912Gsuewdfz HermannBEDSIDE GLUCOSE ZDHTLGY1164-46-08 02:45:32197Eltmtnmf HermannBEDSIDE GLUCOSE GPUKIMS7118-85-42 02:45:77649Mzlxxwzv HermannBEDSIDE GLUCOSE QSSGCHF6712-30-22 02:45:83632Dlawnayu HermannBEDSIDE GLUCOSE TESTING 2011-09-09 02:45:87023Xkvlaebb HermannBEDSIDE GLUCOSE KMXGNHM4105-26-58 02:45:00 148[facility] DvjczvfIDATQILVN2437-04-28 08:47:76730Gzvtyenb HermannCHEMISTRY 2011-09-08 08:47:14266Fyumuryq CfnxbcyBOWAPVAOR7509-96-54 08:47:0029[facility] BlvehqkIBOZOMRCF2122-40-41 08:47:03308Bawkzlfb NnzauiqQTFKZQEOG2762-07-87 08:47:0010[facility] QnbcbjvFKCLSOZAF8740-93-27 08:47:003.8[facility] PJFCFVKHQ8294-70-41 08:47:000.6[facility] HbvgahdRBLEFODYZ5034-42-74 08:47:008.5 [facility] ZivuojwQHZWDZDBN9348-79-20 08:47:0014.8[facility] HermannHEMATOLOGY 2011-09-08 08:47:00 Test Item Value Reference Range Interpretation Comments MCH (test code = MCH) 28.9 pg 27.0-31.0 N [facility] CxbzauhZOTSNCYLLT9002-74-46 08:47:0082.1[facility] HermannHEMATOLOGY 2011-09-08 08:47:0025.9[facility] HlmkzbvMDUSSIPTLX5662-47-31 08:47:33469Mtcivzga YasctneSQOQMMQNDH2418-41-87 08:47:0014.5[facility] AtrkwhrRFWQMGSHZW1976-95-20 08:47:0035.2[facility] DzxtenyFIGFJPDNDM7200-31-37 08:47:009.1[facility] GCWRWMSAKN5435-88-65 08:47:003.15[facility] YyauslhDEPVIWCUOV2883-06-64 08:47:00 9.0[facility] QwwebsqUTWZOVGDKA4165-87-90 08:47:006.3[facility]annHEMATOLOGY 2011-09-08 08:47:000.0[facility] HwqekywCUQSHSSLPG1417-71-33 08:47:000.0[facility] QqzvlfhQKKMUBYZQW2891-68-16 08:47:003.8[facility] KngmxkgUQCMJRJXPX3181-37-57 08:47:002.0[facility] WvoazjpCCRNUTPEXM6263-91-17 08:47:000.5[facility] XXFKEGPUSS6357-43-23 08:47:000.7[facility] ThsjnueHWNCHNIIOC9936-86-32 08:47:006.2 [facility] VlajkwnBGACXWMRLY7564-03-65 08:47:0061.1[facility]annHEMATOLOGY 2011-09-08 08:47:0031.5[facility] QjrkmhxXIRBQWXYWZ9297-92-80 08:47:000.4[facility] UjllpslJEKSWVSDI7948-45-36 08:47:07867Pjtslfnk UuvgxtlTLFIOYYRI9487-94-28 08:47:58561Psbwsyoa CiewbdaVWRPVQTGJ8179-31-80 08:47:0029[facility] MMEPNPRCE5256-36-54 08:47:56694Dlklzuas HmksswcGFWMOUTJT2980-03-98 08:47:0010 [facility] WdsswcrUUHGJCVUX0082-51-08 08:47:003.8[facility] HermannCHEMISTRY 2011-09-08 08:47:000.6[facility] DaiycsvELHIIJRBU8890-28-20 08:47:008.5[facility] IhttaqkZTNOSSHIY7323-82-57 08:47:0014.8[facility] LdovqhgZBCQLQSLEQ8720-36-40 08:47:00 Test Item Value Reference Range Interpretation Comments MCH (test code = MCH) 28.9 pg 27.0-31.0 N [facility] PuyaolmERZQWQTCJY3594-24-03 08:47:0082.1[facility] HermannHEMATOLOGY 2011-09-08 08:47:0025.9[facility] EqpozeoXEUKKOYNVP6893-58-32 08:47:13477Upytbzhc BajmnwiCLYQUMKGJN7346-80-13 08:47:0014.5[facility] XvghxioCQQFASURUI7680-78-17 08:47:0035.2[facility] GzuchuvQFWSXDUXDB4774-03-27 08:47:009.1[facility] VFARJJDAMM6811-94-95 08:47:003.15[facility] PekrxrjFLSVEFYGBJ6563-77-11 08:47:00 9.0[facility] CtgeukhHEFVHDJRHR0410-78-57 08:47:006.3[facility]annHEMATOLOGY 2011-09-08 08:47:000.0[facility] BoztmjyCBTUHGUTND8981-00-74 08:47:000.0[facility] YttnpexKZGCGUQLSX6828-28-03 08:47:003.8[facility] QvgnqwwSURZZNCRNC4026-81-58 08:47:002.0[facility] MwrznnzUDEPQTVLMM6349-80-14 08:47:000.5[facility] CJJAFFRZDX7048-52-90 08:47:000.7[facility] DqbptviOEPQSYEQBG1997-02-74 08:47:006.2 [facility] XbjjlybSPVGUBEMHO4192-44-14 08:47:0061.1[facility]annHEMATOLOGY 2011-09-08 08:47:0031.5[facility] WmtvtgoCPJKUAIYGA9167-77-64 08:47:000.4[facility] CmdvqgoZZUTPIIEB4076-05-75 08:47:34653Knybrhfp PvyjbshCHHSMKTXS9973-62-79 08:47:12342Mqkdycim YrmdvziIQQTAMVXG5140-22-87 08:47:0029[facility] TLTPIVCBU1299-97-02 08:47:33779Pbpvitwk CxvwcdvUZHOQOYXC8135-26-47 08:47:0010 [facility] GpwkupkOIVVELBFA2451-92-02 08:47:003.8[facility] HermannCHEMISTRY 2011-09-08 08:47:000.6[facility] LevamatHTHVSAODV4301-43-62 08:47:008.5[facility] JvasjbuKTSGCLCYP1833-47-23 08:47:0014.8[facility] OfcqeyhOPNWIBLMVG7853-79-53 08:47:00 Test Item Value Reference Range Interpretation Comments MCH (test code = MCH) 28.9 pg 27.0-31.0 N [facility] QbqxwyzDIJITNDJNL0147-07-18 08:47:0082.1[facility]annHEMATOLOGY 2011-09-08 08:47:0025.9[facility] PchbszpWPNGKIQOKE7950-62-05 08:47:64868Yswauvux YfhmjngDRPKMELTIW4782-85-58 08:47:0014.5[facility] NxsdqgzWKAUGGSIYZ2381-51-76 08:47:0035.2[facility] RmdutucYKTFFQEDSI7507-22-53 08:47:009.1[facility] JUBKUQFKDK6778-31-78 08:47:003.15[facility] ZwoamrlHRDDMRJAMM1653-95-93 08:47:00 9.0[facility] RunwxylWAYHOMNVJH9458-63-47 08:47:006.3[facility]annHEMATOLOGY 2011-09-08 08:47:000.0[facility] FxpkqjoDGQWBLOLSB0411-75-63 08:47:000.0[facility] RerqpjlIPWTSVHNSK2143-03-58 08:47:003.8[facility] IhzkhyzUYAMDHUASH8417-79-92 08:47:002.0[facility] BidayvfFKXQOQABUS9882-94-12 08:47:000.5[facility] EMFEVMNSQW6563-61-07 08:47:000.7[facility] WdmcnepQNMHVLGXTR5570-23-49 08:47:006.2 [facility] OqbneomABNWUFSAGN5281-93-61 08:47:0061.1[facility]annHEMATOLOGY 2011-09-08 08:47:0031.5[facility] XakynppHENBDQPQZG5005-62-63 08:47:000.4[facility] TyewtzySHASFTBMN6614-17-59 08:47:33948Ftwtbypo CkcygieWLLONQOOA3882-99-57 08:47:10722Uwxlhkwg NfegklqUYBLFWXJG9294-02-26 08:47:0029[facility] OPLIZUMTZ9653-72-06 08:47:01093Pylnaati CpodzadEVFILSGZM9741-18-98 08:47:0010 [facility] AgxbpfcJVRSYGZDO4860-38-39 08:47:003.8[facility]annCHEMISTRY 2011-09-08 08:47:000.6[facility] LeldsbbQWJTWCYNF7021-16-99 08:47:008.5[facility] CnglvijHGVPWVJFE8269-61-23 08:47:0014.8[facility] QdtqizjUFJLSQBGYX8052-91-97 08:47:00 Test Item Value Reference Range Interpretation Comments MCH (test code = MCH) 28.9 pg 27.0-31.0 N [facility] GzabqboSIBWHXYBHG6370-85-46 08:47:0082.1[facility]annHEMATOLOGY 2011-09-08 08:47:0025.9[facility] SbumymcZAGNWIAZRM1832-21-47 08:47:44586Qdyzvzfg CidsrywGKSLGMXGFT8143-60-61 08:47:0014.5[facility] QlconyuFOIINYBIVM7470-61-02 08:47:0035.2[facility] RkfmdudIJYHMEGMPM6533-09-84 08:47:009.1[facility] JSSUFEVPUM4155-16-05 08:47:003.15[facility] FwrnlvwDFWMRKSXLU6766-41-03 08:47:00 9.0[facility] InkmqgqRPIMSUHGIH8929-13-60 08:47:006.3[facility]annHEMATOLOGY 2011-09-08 08:47:000.0[facility] NawhcnnSQPYKFGYBJ3856-33-47 08:47:000.0[facility] VohsanvGYBQXGTKRP5367-50-02 08:47:003.8[facility] UarjlfeMEOXGWKRZI4718-82-27 08:47:002.0[facility] VgkahcqESFIUTWTNK2097-40-28 08:47:000.5[facility] UXZDRTKAIL1143-70-96 08:47:000.7[facility] HjpyadkTZVRFSJXVC3957-16-37 08:47:006.2 [facility] QphbnlfIGQAXGYNEJ8727-36-45 08:47:0061.1[facility]annHEMATOLOGY 2011-09-08 08:47:0031.5[facility] DhhyxpvFCCIUOHEXT3339-07-80 08:47:000.4[facility] YtiracfBRRWHVMKG6643-35-15 08:47:78703Zqpdseyw CljmkfvLIBKKFSZQ8086-42-86 08:47:58266Eyzfesap SifvfmnNYWFKVAHS0233-39-31 08:47:0029[facility] YZSKWJMYH4861-87-36 08:47:03193Fpecczdx TyqipokXVKXRUYAB8242-94-18 08:47:0010 [facility] YlkwrurLXJCABPKJ5537-92-06 08:47:003.8[facility]annCHEMISTRY 2011-09-08 08:47:000.6[facility] PdneyupKQFNPUNYV8501-66-02 08:47:008.5[facility] TbyhrwyFUGYEFKTT2206-64-26 08:47:0014.8[facility] ZyrrmvbAKRITJRFPF0446-70-19 08:47:00 Test Item Value Reference Range Interpretation Comments MCH (test code = MCH) 28.9 pg 27.0-31.0 N [facility] WegnvraYPYTLYTLPY9136-92-74 08:47:0082.1[facility]annHEMATOLOGY 2011-09-08 08:47:0025.9[facility] HoelopiDBPWHALSJI4903-17-66 08:47:01942Jeefqemr UmfrcfjMLPLHABTPL4433-09-81 08:47:0014.5[facility] MrsujvqIPODBCLKAG3905-19-06 08:47:0035.2[facility] IykbtpgLOZEOZAOEN9649-29-17 08:47:009.1[facility] LXGGDZTFUR5980-60-79 08:47:003.15[facility] CplxzygJHPYIAXKVF6621-45-26 08:47:00 9.0[facility] BatyowxTWKVDIVBCB2882-74-22 08:47:006.3[facility]annHEMATOLOGY 2011-09-08 08:47:000.0[facility] InfojugGQZLEJFUBS8873-58-13 08:47:000.0[facility] YudxfitWYROKECOGH2939-04-74 08:47:003.8[facility] PvzvoxoOVSAARXIRX5811-83-96 08:47:002.0[facility] KyhwljvLTYNKOKIHT6678-97-67 08:47:000.5[facility] WJGHPDPEIH0787-56-89 08:47:000.7[facility] RrdzflpGBWYKLKUFH0554-93-66 08:47:006.2 [facility] BxstqlyXIKWVKHPPR3015-98-39 08:47:0061.1[facility]annHEMATOLOGY 2011-09-08 08:47:0031.5[facility] YbsmlmyWSUOBWRUUR1286-52-03 08:47:000.4[facility] IgnztscLPLLDDZQN4496-78-43 08:47:52566Qszzjysk MxdgdkeILPARLNAV6162-00-39 08:47:03029Oflepsos QqvckpyBZQNEOYMX4567-28-10 08:47:0029[facility] YOZFUOBSR2153-05-83 08:47:97386Pimezlgr HxtrevuCMTIHAFPC6275-35-09 08:47:0010 [facility] PknoklsTITFIAPJH1312-82-26 08:47:003.8[facility]annCHEMISTRY 2011-09-08 08:47:000.6[facility] EgsojcjUKMQFHPND6401-27-71 08:47:008.5[facility] CwkipviWVHZDLVQB3862-11-92 08:47:0014.8[facility] GsduchbEWLJJXGYGY2647-82-00 08:47:00 Test Item Value Reference Range Interpretation Comments MCH (test code = MCH) 28.9 pg 27.0-31.0 N [facility] TcdztbrQBYVTWYYLZ8064-61-98 08:47:0082.1[facility]annHEMATOLOGY 2011-09-08 08:47:0025.9[facility] NwpgshbPRCRUQEVAK0048-82-54 08:47:00318Xgobkvjk QetecioYMMRPIORVQ2372-26-56 08:47:0014.5[facility] AkfscrxTVCZGUMROO7049-73-80 08:47:0035.2[facility] NylrjmhTIWDQRAHLU7058-19-96 08:47:009.1[facility] LTMCPYKTKH6030-22-06 08:47:003.15[facility] VgnkwlwJVHOEJOCAF7141-11-60 08:47:00 9.0[facility] RxwhttnLXBJXMYTMJ3100-11-55 08:47:006.3[facility]annHEMATOLOGY 2011-09-08 08:47:000.0[facility] IjetwevKGUPORMLFB3884-01-18 08:47:000.0[facility] ClrxpnwNSTANJFESK0536-64-09 08:47:003.8[facility] CxdbihwRYJYVFJZNZ4348-68-92 08:47:002.0[facility] PhoqwvdUCHINXZBOV7849-77-94 08:47:000.5[facility] DMNIUTACDD2405-34-32 08:47:000.7[facility] LfmyvsoRCJBLVEONB0969-91-63 08:47:006.2 [facility] HmpzdpuGTUJKJTAQD9419-75-47 08:47:0061.1[facility]annHEMATOLOGY 2011-09-08 08:47:0031.5[facility] UpnawdiKHDJYRVOMD6370-28-67 08:47:000.4[facility] OapjshqOKZCHAPID7095-80-68 10:54:0027[facility] BadtwbhOYTBFEEQE8693-80-58 10:54:55306Bacxjxng PtrxvccZYRGCYFEE1335-61-03 10:54:000.5[facility] RJVZYWURI2609-96-50 10:54:0010[facility] CtflkcyMIGZJOORM2193-28-30 10:54:004.1 [facility] PqpsewdOHRUXTJWV3629-85-73 10:54:50043Mrtfjvcy HermannCHEMISTRY 2011-09-07 10:54:0083[facility] NxndekhRWLYKZBDI7638-96-38 10:54:008.4[facility] IytbqqiXXTCNBOKZ3962-08-88 10:54:0014.1[facility] HzcqaryNTALMOSZIY5536-11-72 10:54:0035.5[facility] ZomnsueNHNWCLPDAW2477-58-53 10:54:004.7[facility] MKULVQVTKA2399-17-96 10:54:0092.6[facility] WtcskqgWRHYNJJMBP6985-64-49 10:54:00 Test Item Value Reference Range Interpretation Comments MCH (test code = MCH) 31.4 pg 27.0-31.0 H [facility] FhqjdluLLHXLZQYBK9202-48-14 10:54:003.84[facility]annHEMATOLOGY 2011-09-07 10:54:0012.1[facility] EceambtTKPKXOVXLQ9007-62-73 10:54:05692Aethmlvh ArlyxncJPRQHWKVBX7114-69-11 10:54:0012.7[facility] TwncdkqNMXPIELKUK4528-20-24 10:54:0033.9[facility] UtztimwRZHOPJWILS1091-61-28 10:54:007.2[facility] KADEARWQMM8455-63-06 10:54:000.95[facility] QyplrwvQKQUFUNOII2075-22-18 10:54:00 Test Item Value Reference Range Interpretation Comments PT (test code = PT) 12.7 s 12.0-14.7 N [facility] XuwhlcxVFAMWLBKXY3364-73-18 10:54:00 Test Item Value Reference Range Interpretation Comments PTT (test code = PTT) 28.5 s 22.9-35.8 N [facility] DqnnbxyLGTEYJIARW3638-68-76 10:54:000.1[facility]annHEMATOLOGY 2011-09-[facility] 10:54:000.0[facility] XlruubvHLFESSQLKF2845-16-28 10:54:000.4[facility] QdbzqouPVAMMGHXBX7377-94-67 10:54:002.1[facility] GnrqcyyZYWHLKEVTR7211-63-31 10:54:009.0[facility] FyqhtemUPRTLHXKJS5005-87-56 10:54:002.4[facility] SRILGHOOSU7154-27-51 10:54:000.4[facility] UwtrukzEYKQUPGDVC8829-58-31 10:54:002.0 [facility] LoexlskSIBBXDNIPV7527-40-55 10:54:0042.8[facility] 2011-09-07 10:54:0045.4[facility] GulytbcBHPYFBPZR3028-73-74 10:54:0027[facility] OecfbjdVKEYACLVU0205-56-41 10:54:77107[place] XeqaabbRZTNXOHLW6247-36-82 10:54:000.5[facility] GinndfrMPYBIJXLC1351-92-25 10:54:0010[facility] JVYJRPZHB1922-14-88 10:54:004.1[facility] IodwwbbBGFQYAVAP3379-25-17 10:54:16471 [facility] MrzeiepSCKLQUXQP1633-43-51 10:54:0083[facility] 2011-09-07 10:54:008.4[facility] OmfuitfAACBBYEOE2234-56-49 10:54:0014.1[facility] UpuamphPLFDZQZGQT5740-10-40 10:54:0035.5[facility] BwqmjyzKEQKECOOWJ9783-26-27 10:54:004.7[facility] ZeirrhmZFPSUTRUOC4707-63-55 10:54:0092.6[facility] CEXJDAMWNB8872-99-69 10:54:00 Test Item Value Reference Range Interpretation Comments MCH (test code = MCH) 31.4 pg 27.0-31.0 H [facility] CspusnmTMKZDZJCLJ1237-57-04 10:54:003.84[facility] 2011-09-07 10:54:0012.1[facility] SchvvzzMEGGSQJAQX5227-38-53 10:54:44992Jdgdwfmz NjpusfhYESQTNLLOO8180-67-09 10:54:0012.7[facility] XoxdwhxUKPRRYUKUT7729-66-57 10:54:0033.9[facility] KbbfrtfGSZTUQTUZH2625-29-31 10:54:007.2[facility] KLOIVQIWHA4481-88-64 10:54:000.95[facility] CsyoihxWPSBHNGJOD6436-62-39 10:54:00 Test Item Value Reference Range Interpretation Comments PT (test code = PT) 12.7 s 12.0-14.7 N [facility] HhxiuhhBUAERMIDBW0033-78-90 10:54:00 Test Item Value Reference Range Interpretation Comments PTT (test code = PTT) 28.5 s 22.9-35.8 N [facility] JovupbkFKHQYXUAYT0444-03-94 10:54:000.1[facility] 2011-09-07 10:54:000.0[facility] KwtxdswPVGWFLBWRQ2279-95-73 10:54:000.4[facility] DfghrszTVUNDVPVAM4770-22-84 10:54:002.1[facility] ZnctnjkZYKZDLJVEL1823-14-90 10:54:009.0[facility] KdaamumAJMAPYBSAA4360-38-77 10:54:002.4[facility] SSIDINWKGE7065-17-47 10:54:000.4[facility] OdixemsIHTQTSSJSR5177-58-55 10:54:002.0 [facility] OevriveVRBCFVOMZC0406-97-83 10:54:0042.8[facility] 2011-09-07 10:54:0045.4[facility] TcjrwyaKBDZXEXBZ2003-87-31 10:54:0027[facility] RnprwgqBZCJMMYLH0059-22-29 10:54:60799Vsumenuq QdwkbguSWMPFDMDD9423-72-85 10:54:000.5[facility] WcdddctWCQTETQTN3815-39-90 10:54:0010[facility] UFNFMEPOB1335-64-66 10:54:004.1[facility] PalrmcsWMYTPCGWL0022-48-58 10:54:05752 [facility] DttudamBNAVYGGTZ8906-48-11 10:54:0083[facility] 2011-09-07 10:54:008.4[facility] VfzbdgzGZPKEIHHC5914-74-89 10:54:0014.1[facility] IeuoaywXFVEOLYFVX4489-87-25 10:54:0035.5[facility] HkanayqJIJKDXZDWV6803-78-21 10:54:004.7[facility] SrovsugZLWVOBLRQV0036-76-65 10:54:0092.6[facility] FJDAJWFIPM5113-43-69 10:54:00 Test Item Value Reference Range Interpretation Comments MCH (test code = MCH) 31.4 pg 27.0-31.0 H [facility] RajbfioEOBYZEHPZS8908-97-63 10:54:003.84[facility] 2011-09-07 10:54:0012.1[facility] AyryuxpYNUFSXDEHL8244-01-24 10:54:15958Jizmjqav DbymmihUONLUMEXWH8117-14-16 10:54:0012.7[facility] RdqycjsGBPRFJCSDQ6124-84-54 10:54:0033.9[facility] TdrbtzpWBVINTSROY9369-34-22 10:54:007.2[facility] LVFDLQEXAA5951-13-82 10:54:000.95[facility] DpoeshsDCQEUJOJCD7442-06-48 10:54:00 Test Item Value Reference Range Interpretation Comments PT (test code = PT) 12.7 s 12.0-14.7 N [facility] NagepsiWWAZHRCSSJ1253-93-45 10:54:00 Test Item Value Reference Range Interpretation Comments PTT (test code = PTT) 28.5 s 22.9-35.8 N [facility] SizetaeGSRHEGUQDX8795-09-92 10:54:000.1[facility] 2011-09-07 10:54:000.0[facility] HnorwnwREMBSRHDPX7999-78-42 10:54:000.4[facility] JpagjjsLVLWWATAKN9532-81-39 10:54:002.1[facility] UcelcopAKUWUECEDC7890-25-24 10:54:009.0[facility] XgapxrcFIOGVBUQDD7163-30-03 10:54:002.4[facility] IOCDZDVCYN2560-30-97 10:54:000.4[facility] RfzsauvFWDSRZJAMT9908-09-59 10:54:002.0 [facility] GtfekneSXXYUCLZAU4188-23-39 10:54:0042.8[facility] 2011-09-07 10:54:0045.4[facility] HxdpiclLDMONDSCZ0636-39-31 10:54:0027[facility] PrhutffAHZZOFDMT7423-15-03 10:54:72282Wdzcskjc LcimqjqWCQEQQBTK0523-80-05 10:54:000.5[facility] XwqhrwmZSNTFSMIC2425-48-45 10:54:0010[facility] QOWDJPHMO1423-41-26 10:54:004.1[facility] FpnhvxvGQBYBUOSK2755-93-70 10:54:14325 [facility] AtpdveuRVDKBGHXV3757-56-13 10:54:0083[facility]annCHEMISTRY 2011-09-07 10:54:008.4[facility] GopwtsoONJNGITSV9564-21-45 10:54:0014.1[facility] BblnvmwCBHEGPZIGD2093-59-46 10:54:0035.5[facility] LjebzbhQRVXAPKDXK0181-20-10 10:54:004.7[facility] CqtsgidRHUXDNVTKU5470-11-47 10:54:0092.6[facility] GPIOMLKTNS5469-58-96 10:54:00 Test Item Value Reference Range Interpretation Comments MCH (test code = MCH) 31.4 pg 27.0-31.0 H [facility] SllsootCZGQBWKUPN1981-80-27 10:54:003.84[facility] 2011-09-07 10:54:0012.1[facility] RlexqpfUXKOJASBJK5012-82-03 10:54:88812Htftpgna LncbsudNJLEUYPGCO3306-12-04 10:54:0012.7[facility] MlittkmHXNKUUZIKQ7942-53-06 10:54:0033.9[facility] GhfsfjeMPIDXLEEAI2487-02-51 10:54:007.2[facility] YCDSSBVUQV7216-70-37 10:54:000.95[facility] XwfwrkaPOXJQAGZTN2033-75-70 10:54:00 Test Item Value Reference Range Interpretation Comments PT (test code = PT) 12.7 s 12.0-14.7 N [facility] PwotdgeVGNZYZOWBU8221-38-81 10:54:00 Test Item Value Reference Range Interpretation Comments PTT (test code = PTT) 28.5 s 22.9-35.8 N [facility] ZrlepivXDEJRRHCYY6421-95-50 10:54:000.1[facility] 2011-09-07 10:54:000.0[facility] ZcmahofMPZAFZLBSO5517-20-02 10:54:000.4[facility] LpnjjfjVTXEMEYEPB4037-22-06 10:54:002.1[facility] GrpfyblBIJNXAQBXP9364-59-79 10:54:009.0[facility] SntxjrqCYCCENNDOI4567-61-79 10:54:002.4[facility] JGIEHIEJML9124-34-11 10:54:000.4[facility] JcjieyjHLNHKLRWOP9462-19-37 10:54:002.0 [facility] KdardifUYGQYJVUVC2729-15-44 10:54:0042.8[facility]annHE[facility]OLOG[facility] 2011-09-07 10:54:0045.4[facility] AwzydfpCRPIYFPZS2257-63-50 10:54:0027[facility] UagmluiVDWEZOIXD7491-71-99 10:54:21737Wgpkmiqm DjisgxqYVYBXYYIN2058-02-00 10:54:000.5[facility] OlcgsptJLRUCUUIH9449-86-77 10:54:0010[facility] JQLBSUQUL5355-82-97 10:54:004.1[facility] KmkgxpaQCMIPJXSS1155-85-45 10:54:11996 [facility] IieycfdOWVOIFHQU4790-21-45 10:54:0083[facility]annCHEMISTRY 2011-09-07 10:54:008.4[facility] LcqhwlmXGWWOWSAA4035-99-29 10:54:0014.1[facility] HozgpubVVKKNNPDVS0789-98-19 10:54:0035.5[facility] UuxxloyWMBSHQDYIY9185-24-33 10:54:004.7[facility] FcxiazoHKKWTWPNUY3550-97-52 10:54:0092.6[facility] XCQDVDGAJZ1849-40-70 10:54:00 Test Item Value Reference Range Interpretation Comments MCH (test code = MCH) 31.4 pg 27.0-31.0 H [facility] BenzvalTPCYYALQVT6194-87-79 10:54:003.84[facility]HE[facility] 2011-09-07 10:54:0012.1[facility] HhvttwxMHMCSFUCYA2830-28-12 10:54:61409Klmealqq OdltqbkDHDDMKETZO8433-29-76 10:54:0012.7[facility] YnwkaihJVHJTFNYSO1271-53-51 10:54:0033.9[facility] BwdpnjsBTLFWWEWWG3432-38-33 10:54:007.2[facility] RPPGFLYHFA9984-97-12 10:54:000.95[facility] HtncdqaDIFNIWARLR7403-60-55 10:54:00 Test Item Value Reference Range Interpretation Comments PT (test code = PT) 12.7 s 12.0-14.7 N [facility] JtrgdyqOOEOCCPJUQ4407-32-96 10:54:00 Test Item Value Reference Range Interpretation Comments PTT (test code = PTT) 28.5 s 22.9-35.8 N [facility] PmlzynjGCDTVFOZPD0925-05-91 10:54:000.1[facility] 10:54:000.0[facility] SigsbfzTFLSVXBUBG3573-47-60 10:54:000.4[facility] LhieqhkOZQMYMXDKZ7914-25-16 10:54:002.1[facility] GdppfxwQBXFAAZWQK5395-89-05 10:54:009.0[facility] RbmujpxWGKSPLSVOA0563-80-62 10:54:002.4[facility] CNYBQDCEVQ5156-34-77 10:54:000.4[facility] XevxyreQYBNEAOHNE5670-94-64 10:54:002.0 [facility] KvcjropRNMWVKMWMP4227-96-78 10:54:0042.8[facility]annHEMATOLOGY 2011-09-07 10:54:0045.4[facility] ZflepvpDZOJHVWNL7505-47-99 10:54:0027[facility] YpuglabENPDGZPNR9196-10-66 10:54:53824Gpdsrltu BrjxaorGURMVSAUJ0927-05-40 10:54:000.5[facility] LhowpdqYMROTWVJB6317-94-41 10:54:0010[facility] FKCUPVNJA5361-89-41 10:54:004.1[facility] PijpdwyXIMBZRZUK3704-51-50 10:54:55040 [facility] LgyebyoCCHYMXNRF7581-65-94 10:54:0083[facility]annCHEMISTRY 2011-09-07 10:54:008.4[facility] LdzzpoqRCVVECETX3177-31-60 10:54:0014.1[facility] EfigayiBPBGDBNOYX2370-32-28 10:54:0035.5[facility] DlulodmITNYNFRFZP1158-73-36 10:54:004.7[facility] DtyzljmSWBWOSDCET2237-56-55 10:54:0092.6[facility] PWUTBHRVDG5366-50-34 10:54:00 Test Item Value Reference Range Interpretation Comments MCH (test code = MCH) 31.4 pg 27.0-31.0 H [facility] PzwlrbvJUHPNQABSQ8338-16-03 10:54:003.84[facility] 2011-09-07 10:54:0012.1[facility] AckvtezSFDFTGBGXJ8542-13-07 10:54:38612Larqqsmh GtozhfoFIQBHTTSSH4666-75-50 10:54:0012.7[facility] AtngguuUCSXUHXUWH6270-70-18 10:54:0033.9[facility] CrabpszATLONOXCDQ5868-06-78 10:54:007.2[facility] QTUAXZQZON3181-66-49 10:54:000.95[facility] RbszdiiXJRXJJFQVS0846-38-40 10:54:00 Test Item Value Reference Range Interpretation Comments PT (test code = PT) 12.7 s 12.0-14.7 N [facility] DvjydtmFJHLKLOBDG1283-74-62 10:54:00 Test Item Value Reference Range Interpretation Comments PTT (test code = PTT) 28.5 s 22.9-35.8 N [facility] OlxmjqsWJOYVERTIE9699-21-86 10:54:000.1[facility] 2011-09-07 10:54:000.0[facility] ZzoqolfTREOQJPVOG2233-57-15 10:54:000.4[facility] YzcpiqyGXLYRZJAEC5915-98-13 10:54:002.1[facility] QivmrcuPHRUZIXBYK7011-17-16 10:54:009.0[facility] EacxafkRMAZSNHLTF3344-63-28 10:54:002.4[facility] WVETRKWMHQ7361-10-85 10:54:000.4[facility] SqlhjtnCZUNQAZKDQ9799-48-73 10:54:002.0 [facility] JvjcvhhWBORJSJQJC0630-49-82 10:54:0042.8[facility]HE[facility] 2011-09-07 10:54:0045.4[facility] LcminycBJNIBAYLG3862-88-43 10:02:85644Cjlbvvkt DpdrwxuIRJWNDLNT0685-20-31 10:02:004.1[facility] RfbdmvyCOKHCXJDT0875-67-17 10:02:78486Mycdtpbd AlqumnyUISTUBPGO3900-06-29 10:02:0029[facility] IKHCCATBR6683-16-47 10:02:008.7[facility] UznmdonHXWWLACUT4747-11-01 10:02:006 [facility] QeixdflDXSTHPSVY0473-35-79 10:02:000.6[facility]annCHEMISTRY 2011-09-07 10:02:36897Isuuhbfl OvbujcuZFQCDTYHM9554-41-12 10:02:0013.1[facility] PqqqgcxSBUKOMSZNM3280-52-25 10:02:000.0[facility] FyvcatcPCQLPBQQGU0158-67-95 10:02:000.3[facility] XutbxcpCCNKTDYMIB3330-14-17 10:02:000.1[facility] WQOISHXIMB9054-11-21 10:02:002.8[facility] TrfrbvuQABJEFEIQS2523-93-37 10:02:001.7 [facility] SuapkhqNSYVKBKYVO8774-76-07 10:02:000.6[facility]annHE[facility]OLOGY 2011-09-07 10:02:006.9[facility] GyliujaYALRAVFFNL6273-35-50 10:02:002.0[facility] FhuzercCDEQMNMUKL1272-72-29 10:02:0055.8[facility] IjmvpqqOWZCOYVGQM6561-71-99 10:02:0034.7[facility] BfuoyxjOQOKQMWMPA9616-69-24 10:02:00 Test Item Value Reference Range Interpretation Comments PTT (test code = PTT) 32.2 s 22.9-35.8 N [facility] PslwhmlOAPGHSOHRD9615-02-36 10:02:00 Test Item Value Reference Range Interpretation Comments PT (test code = PT) 13.3 s 12.0-14.7 N [facility] UmafnnoEIHVGCTQFL5671-15-81 10:02:001.01[facility] 2011-09-07 10:02:0027.5[facility] PsmnrcrJVJZMXTFHR8559-52-06 10:02:003.34[facility] RfwjycbMOCZHUIDYR4940-64-04 10:02:009.7[facility] CagsbnlEKLHZNVRDC1845-59-67 10:02:005.0[facility] ChyuqmdFEFERMSHVD1707-57-52 10:02:009.2[facility] ZQGPZFRFYU6770-77-34 10:02:18942Moaraifo BrjdzcdJSOEWWPUVG7102-40-26 10:02:00 14.3[facility] KbtosoeLAOMXYPQRX6987-62-91 10:02:0035.2[facility]annHE[facility]Y 2011-09-07 10:02:00 Test Item Value Reference Range Interpretation Comments MCH (test code = MCH) 28.9 pg 27.0-31.0 N [facility] QwhgqeoGRRDIPXYEE2881-93-55 10:02:0082.1[facility]annCHEMISTRY 2011-09-07 10:02:08339Zhdjdfsn KvitufeWYFRAVDNT2195-14-25 10:02:004.1[facility] BtzhtwlOEXRYLVZN4601-58-22 10:02:01317Ebwldhrn PlonnbiYGEAVELKX8014-18-08 10:02:0029[facility] YvgpglrWBRMOSOKF2587-75-11 10:02:008.7[facility] FEZVDNQYV2595-01-62 10:02:006[facility] RisvbaaIMJLZREMO3607-50-53 10:02:000.6 [facility] JgcxnzoAQOLJQEXR6049-71-91 10:02:33977Hmcofvdi HermannCHEMISTRY 2011-09-07 10:02:0013.1[facility] YpwglusIQTIXMGXBQ1889-39-30 10:02:000.0[facility] OvsnvgxDQZGXGMWLL4514-21-90 10:02:000.3[facility] FhkqqcbXIQDKXXHAO2400-18-45 10:02:000.1[facility] CzvccbqIQWHUIHQZR9076-60-63 10:02:002.8[facility] YUTHKCDXCB1057-43-47 10:02:001.7[facility] XjkscqtEXAZVGBSON7930-51-18 10:02:000.6 [facility] FzfbfvdDNKXSTZPZM4714-35-49 10:02:006.9[facility]annHEMATOLOGY 2011-09-07 10:02:002.0[facility] XayeqxwFPXXTVCBZT2660-63-68 10:02:0055.8[facility] MlasnqlEMVOLNYMOA3858-86-18 10:02:0034.7[facility] ZnbgzyeJIEDGOTMBB0210-28-21 10:02:00 Test Item Value Reference Range Interpretation Comments PTT (test code = PTT) 32.2 s 22.9-35.8 N [facility] KklodlhJTPLBFBADL3429-30-50 10:02:00 Test Item Value Reference Range Interpretation Comments PT (test code = PT) 13.3 s 12.0-14.7 N [facility] HpgugfnCVNDVJZHNH5208-11-11 10:02:001.01[facility]annHEMATOLOGY 2011-09-07 10:02:0027.5[facility] XvctfloJUVLWHVRRW7586-15-06 10:02:003.34[facility] YiiejdfVLSOWLZDSH7202-26-28 10:02:009.7[facility] XqoiiajWBDIHNVDUH7748-73-42 10:02:005.0[facility] RgpiopoTBIVZMUTOK7138-12-35 10:02:009.2[facility] UHEHEDCVWO8916-39-23 10:02:02805Okwggmxt WjlnbyqNLVQMKTFJP2531-53-28 10:02:00 14.3[facility] FrwgwafMFYETTYGHP4556-13-77 10:02:0035.2[facility]annHEMATOLOGY 2011-09-07 10:02:00 Test Item Value Reference Range Interpretation Comments MCH (test code = MCH) 28.9 pg 27.0-31.0 N [facility] TtzquumPBJRJGMDPU5637-66-13 10:02:0082.1[facility]annCHEMISTRY 2011-09-07 10:02:48674Uhfwtanq JqvjevjBVKQKISAI8866-96-51 10:02:004.1[facility] TcglcvaBSNCMEWRY2486-33-85 10:02:25829Szkkgibv EworyegDRIWJVSDM3463-82-11 10:02:0029[facility] OgyqcsoCVSKJEZKG9838-47-86 10:02:008.7[facility] HPTGDUDJL7746-82-31 10:02:006[facility] CdhhoulWHUQDXUSZ5862-48-64 10:02:000.6 [facility] MqoltmxTWMAYTAHV3283-47-99 10:02:67217Iureysru HermannCHEMISTRY 2011-09-07 10:02:0013.1[facility] ZfvkwpvSUFQLYMBWS6354-24-29 10:02:000.0[facility] WnwbzjhYNRHXADZQN0467-49-01 10:02:000.3[facility] GtyhjnaOSISMTPUMW8685-08-83 10:02:000.1[facility] UxbzohsPWMNRAPGJI7526-60-39 10:02:002.8[facility] JLNNOYEKRT7507-41-30 10:02:001.7[facility] AjuiswjMPQFFSQGQW9127-52-17 10:02:000.6 [facility] IybzorwMRXBASVYMP3065-66-00 10:02:006.9[facility]annHEMATOLOGY 2011-09-07 10:02:002.0[facility] JnafemeMNSKGMODFW4370-67-31 10:02:0055.8[facility] KmdjdhyQIKHDHWVUC9141-84-75 10:02:0034.7[facility] OggrdtuARPKVCQPPU5911-58-98 10:02:00 Test Item Value Reference Range Interpretation Comments PTT (test code = PTT) 32.2 s 22.9-35.8 N [facility] MqhkcwcKGNLSTXLKT7488-62-35 10:02:00 Test Item Value Reference Range Interpretation Comments PT (test code = PT) 13.3 s 12.0-14.7 N [facility] AwusvudYMKHVZDFER9217-96-84 10:02:001.01[facility]HEMAT[facility]Y 2011-09-07 10:02:0027.5[facility] YffhnzxQLUUOZGAWA8902-77-38 10:02:003.34[facility] AcrcqwhHHRATQSMTD1061-62-17 10:02:009.7[facility] WcomeanUCJCWSLXXK8161-84-31 10:02:005.0[facility] QsgfwweDTCMXBJAVX6175-79-45 10:02:009.2[facility] AQZDTICLSB5206-42-95 10:02:55775Ghdoyaoj GnwtgwcYWUNBLPPKZ3750-49-39 10:02:00 14.3[facility] HbqotgoPWAUTBRLIB3236-53-54 10:02:0035.2[facility]annHEMATOLOGY 2011-09-07 10:02:00 Test Item Value Reference Range Interpretation Comments MCH (test code = MCH) 28.9 pg 27.0-31.0 N [facility] FzqrjjcSHBZBLNIRH9846-10-62 10:02:0082.1[facility]annCHEMISTRY 2011-09-07 10:02:41257Mdxfoths OfgendkGKFUZNQYP4559-86-10 10:02:004.1[facility] ZerydkpOXGRXUFBG9998-79-47 10:02:49147Owckukdm ZlugswyDMKCPFRWN7509-09-82 10:02:0029[facility] YacorzhLSLGZQTXV6818-81-99 10:02:008.7[facility] YVVBCURUK4764-30-94 10:02:006[facility] MrjysedCWDLUTTYL7865-17-64 10:02:000.6 [facility] OrhpmtnUFEXTKJZZ7161-68-38 10:02:39508Runvlcfr HermannCHEMISTRY 2011-09-07 10:02:0013.1[facility] NwwctbtMCNFIRRIEN0582-94-80 10:02:000.0[facility] FdmxzblJWFZBETIRG6575-91-06 10:02:000.3[facility] NrqggaeTYHFAQZOBY7295-77-52 10:02:000.1[facility] VbzjajbMIOYZEANJF7568-46-89 10:02:002.8[facility] QZJBVGOYNZ5375-47-90 10:02:001.7[facility] XimjzysKIHGHCUBQN6020-30-26 10:02:000.6 [facility] VqejuuwCRCPWXBKVS0336-18-10 10:02:006.9[facility]annHEMATOLOGY 2011-09-07 10:02:002.0[facility] OqcajzcIZCZDTUIEP9105-97-08 10:02:0055.8[facility] GkzmjdiQQZUSSYDID5381-56-99 10:02:0034.7[facility] CxfbgzpQIYAZLLCYS8146-63-48 10:02:00 Test Item Value Reference Range Interpretation Comments PTT (test code = PTT) 32.2 s 22.9-35.8 N [facility] PfcbytlEAMVFCBFVF4028-71-54 10:02:00 Test Item Value Reference Range Interpretation Comments PT (test code = PT) 13.3 s 12.0-14.7 N [facility] WhczfemDROLEEYHYM0460-42-35 10:02:001.01[facility]HEMATOLOGY 2011-09-07 10:02:0027.5[facility] NlxyclyCVOGIYHSCO5856-69-26 10:02:003.34[facility] BkrfgiaEOHWSMTCWO7044-51-30 10:02:009.7[facility] MwpzxqfXVEDZRONEI7585-27-45 10:02:005.0[facility] GzioqggTVNTGHFBMS6239-58-52 10:02:009.2[facility] VSWGWTOJZD9847-08-71 10:02:78490Tfnouvza HtougkzNCZJWENPIH8607-71-01 10:02:00 14.3[facility] FxibcdePTPNMSCFNJ1321-66-37 10:02:0035.2[facility]annHEMATOLOGY 2011-09-07 10:02:00 Test Item Value Reference Range Interpretation Comments MCH (test code = MCH) 28.9 pg 27.0-31.0 N [facility] VlpvuliTURHOZQUPM3595-78-32 10:02:0082.1[facility]annCHEMISTRY 2011-09-07 10:02:45364Oduoboxk PdcggtrFUHFXMEKO9578-56-95 10:02:004.1[facility] IaibzpeKQUTZLFFB8227-69-43 10:02:93236Yodaovro UmjrppzUQVLSHPAL8996-68-72 10:02:0029[facility] IvkedluLOUYNBITD0666-50-64 10:02:008.7[facility] NPOCPPUBV3363-94-97 10:02:006[facility] OnxjmvuIITHYNPKP9355-03-50 10:02:000.6 [facility] RxzhtqcZPISDWYYK8210-30-70 10:02:23572Zrziqfjw HermannCHEMISTRY 2011-09-07 10:02:0013.1[facility] BcyrqglEAUBFAXUVY0997-46-06 10:02:000.0[facility] ZieizfpGINURFTEXF8055-04-84 10:02:000.3[facility] ZmmbxcuCYVLORUNBO4991-55-32 10:02:000.1[facility] ZmgtkoeLWDDFQUSNR0791-26-96 10:02:002.8[facility] UGPEYBGPNQ4827-91-27 10:02:001.7[facility] BbqbforVGGKLLDQRD6779-71-46 10:02:000.6 [facility] EyxdwmzIBYFXPFWNW2191-75-74 10:02:006.9[facility]annHEMATOLOGY 2011-09-07 10:02:002.0[facility] SikzaeyBLWIVDENIR2181-08-43 10:02:0055.8[facility] EtpedohPESYQQNNWC9285-02-69 10:02:0034.7[facility] BidrialZVESGZVXCF5435-33-96 10:02:00 Test Item Value Reference Range Interpretation Comments PTT (test code = PTT) 32.2 s 22.9-35.8 N [facility] JoohzpaPHOKWMKGUW0804-11-47 10:02:00 Test Item Value Reference Range Interpretation Comments PT (test code = PT) 13.3 s 12.0-14.7 N [facility] HolfjwhJZFFVXGPAU1723-80-18 10:02:001.01[facility] 2011-09-07 10:02:0027.5[facility] YvrabeaFPRQNUNAJJ5194-28-18 10:02:003.34[facility] UbmitbwBJQNGPQNYS1624-60-64 10:02:009.7[facility] QnknkooDCYGCVMUDS7011-10-48 10:02:005.0[facility] GlcpeoxFLHXEDWIYB9708-22-97 10:02:009.2[facility] UXDCQKZVPA1200-86-85 10:02:30620Wjdjcojs HiofwewISEVSNSWXP1835-34-25 10:02:00 14.3[facility] CzsfshuHOSUIPYKUY7807-60-11 10:02:0035.2[facility]HE[facility]OLOGY 2011-09-07 10:02:00 Test Item Value Reference Range Interpretation Comments MCH (test code = MCH) 28.9 pg 27.0-31.0 N [facility] SwmmdzyJQZSADOUGY9989-36-67 10:02:0082.1[facility]annCHEMISTRY 2011-09-07 10:02:26050Usfqovsa ZfunaioTEXKMCXIF4945-66-82 10:02:004.1[facility] IotitpmEGGLOSEVU8830-47-45 10:02:36159Tjofzapw YinnkzrYUDBYVKZY6633-52-40 10:02:0029[facility] ZolhiwbPSBXQDGXL4812-89-40 10:02:008.7[facility] CRLCCJCKD6897-50-92 10:02:006[facility] QxlnoqrWMXZPOCSV6784-08-04 10:02:000.6 [facility] VdmaxgyXWFNYFBEP1545-49-06 10:02:98213Hedveyxg [facility]annCHEMISTRY 2011-09-07 10:02:0013.1[facility] GcaljewUDJGYAQGPN8709-71-44 10:02:000.0[facility] UwenvpsYQMLKSJJFN9519-03-74 10:02:000.3[facility] EyynygvLDFGYZWNSJ5169-93-27 10:02:000.1[facility] VjvxrcsJLNXIABUPB9578-08-36 10:02:002.8[facility] TBBXNOKMMV4515-93-51 10:02:001.7[facility] EwuzzkaXINIMPMRUG3365-43-53 10:02:000.6 [facility] XnnxmxmCSYMUGCLVD6176-16-11 10:02:006.9[facility]annHEMATOLOGY 2011-09-07 10:02:002.0[facility] EvjsamwEARMAVMSAB9504-39-88 10:02:0055.8[facility] UezahffOKABESNAZX2775-99-18 10:02:0034.7[facility] ZmhyriyPGOATHRXCH4808-19-82 10:02:00 Test Item Value Reference Range Interpretation Comments PTT (test code = PTT) 32.2 s 22.9-35.8 N [facility]LodawkfKWUBYUVDVN4657-43-93 10:02:00 Test Item Value Reference Range Interpretation Comments PT (test code = PT) 13.3 s 12.0-14.7 N [facility] YsoajpxXEQGRLJKVT6423-06-33 10:02:001.01[facility]HEMATOLOGY 2011-09-07 10:02:0027.5[facility] BabsiidRRXMQNUZVE4610-58-76 10:02:003.34[facility] NgsybmtTQXAOHIACK7297-71-73 10:02:009.7[facility] WfewotfBLWICRSWYP6992-94-39 10:02:005.0[facility] GgqkvvoOIUHSVKAHB6632-52-08 10:02:009.2[facility] DOAOJMWQDO7331-56-03 10:02:58317Oerbbgwo QiqmjnhWMISAMCMUI2807-18-26 10:02:00 14.3[facility] MopfrieUYAGKQFCIB2026-74-76 10:02:0035.2[facility]annHEMATOLOGY 2011-09-07 10:02:00 Test Item Value Reference Range Interpretation Comments MCH (test code = MCH) 28.9 pg 27.0-31.0 N [facility] OnqefzxHCKVGYYTLW7033-19-69 10:02:0082.1[facility]annCHEMISTRY 2011-09-03 09:24:002.1[facility] GcxcrvmUMEJSMINH9807-98-91 09:24:002.1[facility] UgykhbzHSYZJFTRZ4348-33-87 09:24:002.1[facility] NumbnvtDRNOAKAMI2160-73-52 09:24:002.1[facility] EblqmqoQRNHJYEDG4644-92-33 09:24:002.1[facility] RGVKVNUHJ8395-65-54 09:24:002.1[facility] XywgcciRSGWZAJTO1439-62-63 17:10:0037.0 [facility] HyngsvdUSAIRLMLA5242-57-53 17:10:0027.0[facility]annCHEMISTRY 2011-09-01 17:10:0047[facility] OsjljqoNJPUJRYPJ7444-72-80 17:10:007.37[facility] RboubtdZDEFUFEKN5696-38-58 17:10:001[facility] PdihsbtGVSAICMWC7614-56-66 17:10:00 27.emorial PspglnlDHZRWTXXX0272-38-78 17:10:0019[facility]annCHEMISTRY 2011-09-01 17:10:0037.0[facility] MdckfhgECCZDRDKX8248-16-12 17:10:0027.0[facility] JxkkptvPOSVUSKEL4882-86-73 17:10:0047[facility] CmensolLKSLWETZO2387-01-92 17:10:007.37[facility] PtlhxiwLPXLLPKMO2039-44-97 17:10:001[facility] TGRXHKKZH9635-60-94 17:10:0027.2[facility] QbgiayzDIGZZJRKQ6732-42-40 17:10:0019 [facility] XpluftwANLPCWNOZ4134-16-47 17:10:0037.0[facility]annCHEMISTRY 2011-09-01 17:10:0027.0[facility] VycocqgRGHXQFOGO1082-50-30 17:10:0047[facility] RuzokpxMXRFGBZMU9859-77-40 17:10:007.37[facility] UjpwrvnWUJTVJHJA1257-53-12 17:10:001[facility] DvhhtfhBSOUCBDMP3291-90-92 17:10:0027.2[facility] QBUSKQNGX3503-93-19 17:10:0019[facility] UperemxXGBCPLWUH9998-65-71 17:10:0037.0 [facility] QcuhtiaRJUYQMTRT5345-49-39 17:10:0027.0[facility]annCHEMISTRY 2011-09-01 17:10:0047[facility] ToxbyxgOODCESMLL8326-56-01 17:10:007.37[facility] XovrvvrJNHQFYLMT1026-94-05 17:10:001[facility] QmffuuhPCLHVYSIJ8964-19-17 17:10:00 27.2[facility] KpcgnubRWRMCHDNG2816-18-38 17:10:0019[facility]annCHEMISTRY 2011-09-01 17:10:0037.0[facility] VxskgvkKPZZJMVLL2160-25-24 17:10:0027.0[facility] ObhfzkcFQUIGDDPW1434-07-81 17:10:0047[facility] TtbszbgQHQDJGILY0494-40-27 17:10:007.37[facility] TjeipreEDQAVQJLP6205-13-63 17:10:001[facility] IWHBJVYHU0342-13-57 17:10:0027.2[facility] QadroqyYNHFLUYHB0253-19-64 17:10:0019 [facility] UaxkvmfSUMCYLTZN3570-10-36 17:10:0037.0[facility]annCHEMISTRY 2011-09-01 17:10:0027.0[facility] FokoqwxENPLMGYHM6603-26-46 17:10:0047[facility] RapozcuPWXLDGLDR1060-80-28 17:10:007.37[facility] OqpdcqiNLCGSEVHZ7609-46-13 17:10:001[facility] DzxskivBFKACEFSO7093-48-14 17:10:0027.2[facility] LEQHWXKYG3872-81-18 17:10:0019[facility] CunwedpXLYGDGLDU1948-06-95 13:09:001.0 [facility] IncnjnxEOPOTMEOS1418-11-47 13:09:001.0[facility] HermannCHEMISTRY 2011-09-01 13:09:001.0[facility] WjukoskCNYTZTZVV8297-59-82 13:09:001.0[facility] GcgaemuIDXKEBUHS0863-27-63 13:09:001.0[facility] YxpczqfZTIUCVCNW6405-69-57 13:09:001.0[facility] PwypujrDBSQQHXHU5326-70-17 12:20:00Negative (09/01/2011 07:20:00)[facility] WuvqkryEPKVTBUOAF3176-94-20 12:20:00Occasional /LPF (09/01/2011 07:20:00)[facility] JgdmewdDSEKYYXZQT4055-22-26 12:20:00Negative (09/01/2011 07:20:00)[facility] IqpmaofMABRCHKZOT4380-82-18 12:20:00Negative (09/01/2011 07:20:00)[facility] UkvelptEZSKNDYHRD7064-50-33 12:20:000.2[facility] EqaojrhKDRAKDSARP5601-23-10 12:20:00Negative (09/01/2011 07:20:00)[facility] YlgpdpmQUPGMUXQFR2313-34-98 12:20:00>=80 mg/dL *ABN*(09/01/2011 07:20:00) [facility] VhqekaoHPSJGIWHQY4285-03-15 12:20:00Negative (09/01/2011 07:20:00) [facility] CjdiclfMBHWLBBPJT9336-49-68 12:20:00 Test Item Value Reference Range Interpretation Comments UA pH (test code = UA pH) 6.0 1 5.0-8.0 N [facility] YejrqulCBREYJGJGH5392-04-71 12:20:00Negative (09/01/2011 07:20:00) [facility] RbmmvkiBIBLQTZMSW0042-42-75 12:20:00>=1000 mg/dL *ABN*(09/01/2011 07:20:00)[facility] ElohibsQZNNHDKCWZ1345-04-69 12:20:00 Test Item Value Reference Range Interpretation Comments UA Spec Grav (test code = UA Spec 1.035 1 H Grav) [facility]FswbrvnVFWWTJMWHR0891-27-27 12:20:00Clear (09/01/2011 07:20:00)[facility]neGwvatckKBZZOMRAEW1233-30-13 12:20:00Yellow *NA*(09/01/2011 07:20:00)[facility]neRfhlfvxQTUOQIOVS5634-94-74 12:20:00Negative (09/01/2011 07:20:00)[facility]neFebtqjkWURLSAXHRP3859-03-69 12:20:00Occasional /LPF (09/01/2011 07:20:00) [facility]neEvgkdljFOLDZRKTDD0450-72-74 12:20:00Negative (09/01/2011 07:20:00) [facility]neHbrntszMIDGTAMGXX7067-91-11 12:20:00Negative (09/01/2011 07:20:00) [facility]neFdkomggJMAGUAZCUQ3116-63-33 12:20:000.2[facility] 2011-[facility]-01 12:20:00Negative (09/01/2011 07:20:00)[facility]neannURINALYSIS 2011-09-01 12:20:00>=80 mg/dL *ABN*(09/01/2011 07:20:00)[facility] [id number] 12:20:00Negative (09/01/2011 07:20:00)[facility] [id number] 12:20:00 Test Item Value Reference Range Interpretation Comments UA pH (test code = UA pH) 6.0 1 5.0-8.0 N [facility]neGoqozrwJAYFSOSORT1130-05-95 12:20:00Negative (09/01/2011 07:20:00) [facility]neJadrnxlCPKWNOIESC2932-75-21 12:20:00>=1000 mg/dL *ABN*(09/01/2011 07:20:00)[facility]neElodsryZGUOMJNJWG3842-82-06 12:20:00 Test Item Value Reference Range Interpretation Comments UA Spec Grav (test code = UA Spec 1.035 1 H Grav) [facility]nePmolkeeLRLURYCABD4112-27-79 12:20:00Clear (09/01/2011 07:20:00)[facility]neDkpwjxiIHROJOCUFI0897-48-56 12:20:00Yellow *NA*(09/01/2011 07:20:00)[facility]neQwllzdmXUDDZQLMY3263-37-55 12:20:00Negative (09/01/2011 07:20:00)[facility]neLaxbfqzURUMTTIBPS1630-81-49 12:20:00Occasional /LPF (09/01/2011 07:20:00) [facility]neEetnxhsNJSQPNKVIN0003-35-44 12:20:00Negative (09/01/2011 07:20:00) [facility]neJfuihtsPSOZFRZPJW7436-67-79 12:20:00Negative (09/01/2011 07:20:00) [facility] HospitalLcjrrtnLAJTRVWIWQ7077-49-52 12:20:000.2[facility]annUR[facility] 2011-09-01 12:20:00Negative (09/01/2011 07:20:00)[facility]neannURINALYSIS 2011-09-01 12:20:00>=80 mg/dL *ABN*(09/01/2011 07:20:00)[facility] [id number] 12:20:00Negative (09/01/2011 07:20:00)[facility] IUXNFNTFHE9824-71-36 12:20:00 Test Item Value Reference Range Interpretation Comments UA pH (test code = UA pH) 6.0 1 5.0-8.0 N [facility]nePazihfiQTFRGVNXJU6695-60-50 12:20:00Negative (09/01/2011 07:20:00) [facility]neIwpntcyYPHPAUIETN3231-56-74 12:20:00>=1000 mg/dL *ABN*(09/01/2011 07:20:00)[facility] HospitalWhjonfyTVNNLUEWUR5381-00-93 12:20:00 Test Item Value Reference Range Interpretation Comments UA Spec Grav (test code = UA Spec 1.035 1 H Grav) [facility]neTlbngsfUKVRICPLDF4544-40-50 12:20:00Clear (09/01/2011 07:20:00)[facility]neLjeivmrPCMTCUCIAZ8949-77-43 12:20:00Yellow *NA*(09/01/2011 07:20:00)[facility] TtniovaMFAXEVQSO2318-70-03 12:20:00Negative (09/01/2011 07:20:00)[facility]nePvcyyinGMKIHTLJUP1313-66-65 12:20:00Occasional /LPF (09/01/2011 07:20:00) [facility]neWahzykeESEDUGNABK3495-28-78 12:20:00Negative (09/01/2011 07:20:00) [facility]neXbnseuwIEKZCPORAC0319-91-76 12:20:00Negative (09/01/2011 07:20:00) [facility]neHeclfrrQKROXQCEFA0408-05-74 12:20:000.2[facility]annURINALYSIS 2011-09-01 12:20:00Negative (09/01/2011 07:20:00)[facility]neannURINALYSIS 2011-09-01 12:20:00>=80 mg/dL *ABN*(09/01/2011 07:20:00)[facility] [id number] 12:20:00Negative (09/01/2011 07:20:00)[facility] WZPPGBNIXD7252-00-53 12:20:00 Test Item Value Reference Range Interpretation Comments UA pH (test code = UA pH) 6.0 1 5.0-8.0 N [facility]neQdlcyckMBRDGEZWGA0950-26-09 12:20:00Negative (09/01/2011 07:20:00) [facility]neTydcbhsRFVQAWQVPX1832-72-26 12:20:00>=1000 mg/dL *ABN*(09/01/2011 07:20:00)[facility]neKzefgqgYPUQSOKUYZ5766-61-99 12:20:00 Test Item Value Reference Range Interpretation Comments UA Spec Grav (test code = UA Spec 1.035 1 H Grav) [facility]neWcwxnzyWSQZPNQRJC9527-16-13 12:20:00Clear (09/01/2011 07:20:00)[facility]neWzpbvjyFPRQEMAZEV7315-37-63 12:20:00Yellow *NA*(09/01/2011 07:20:00)[facility]nePddhxbzHGVCPVBCX9664-81-42 12:20:00Negative (09/01/2011 07:20:00)[facility] ZdumijfSTQDVNIJWD5287-90-76 12:20:00Occasional /LPF (09/01/2011 07:20:00) [facility]neXqsobslQULVZXJLDK8979-86-06 12:20:00Negative (09/01/2011 07:20:00) [facility]neGtnvisuUQYMMSNPPS8166-00-16 12:20:00Negative (09/01/2011 07:20:00) [facility]neYibuofyKRMCBSSKRH5213-83-27 12:20:000.2[facility]UR[facility] 2011-[facility]-01 12:20:00Negative (09/01/2011 07:20:00)[facility]neannURINALYSIS 2011-09-01 12:20:00>=80 mg/dL *ABN*(09/01/2011 07:20:00)[facility] TRUJSCVNAX5819-22-80 12:20:00Negative (09/01/2011 07:20:00)[facility] EOGPWYMSFW7284-30-62 12:20:00 Test Item Value Reference Range Interpretation Comments UA pH (test code = UA pH) 6.0 1 5.0-8.0 N [facility]neXgfnsezLNNVUVUCBY7743-90-62 12:20:00Negative (09/01/2011 07:20:00) [facility] [place]tfcqcxBAEWYYLSUF9789-72-61 12:20:00>=1000 mg/dL *ABN*(09/01/2011 07:20:00)[facility]nePnrmupyWEFPLVDOCM3355-37-26 12:20:00 Test Item Value Reference Range Interpretation Comments UA Spec Grav (test code = UA Spec 1.035 1 H Grav) [facility] [place]neIefovrtOGUVYTWRAM0829-01-93 12:20:00Clear (09/01/2011 07:20:00)[facility] [place]neHduvsehCRNICNYJIC5358-13-01 12:20:00Yellow *NA*(09/01/2011 07:20:00)[facility] [place]neZemsuezONAFNZDOY4800-99-80 12:20:00Negative (09/01/2011 07:20:00)[facility] [place]neYuhrzsrFKYRDVIYMJ8358-55-50 12:20:00Occasional /LPF (09/01/2011 07:20:00) [facility] NkggjsdIWQKVZGINE6866-53-56 12:20:00Negative (09/01/2011 07:20:00) [facility] [place]neOircohmSHNDVOUOOL4056-19-09 12:20:00Negative (09/01/2011 07:20:00) [facility] QgwpfecNHINJTIXBD3040-41-73 12:20:000.2[facility]ann[facility]ALYSIS 2011-09-01 12:20:00Negative (09/01/2011 07:20:00)[facility] HermannURINALYSIS 2011-09-01 12:20:00>=80 mg/dL *ABN*(09/01/2011 07:20:00)[facility] WMGMRRSGYL4016-19-21 12:20:00Negative (09/01/2011 07:20:00)[facility] LMOAXZVBEW2914-30-21 12:20:00 Test Item Value Reference Range Interpretation Comments UA pH (test code = UA pH) 6.0 1 5.0-8.0 N [facility] PqbytgzAEXKABWLGJ2577-19-78 12:20:00Negative (09/01/2011 07:20:00) [facility] [place]neBsvoofwKXNAQUUOUL2902-08-71 12:20:00>=1000 mg/dL *ABN*(09/01/2011 07:20:00)[facility] [place]neTaowgonAJWWUKQDEB4218-88-55 12:20:00 Test Item Value Reference Range Interpretation Comments UA Spec Grav (test code = UA Spec 1.035 1 H Grav) [facility] ZysdthoCGECVXJMDC6507-90-04 12:20:00Clear (09/01/2011 07:20:00)[facility] [place]neBrqfvzsOMKKBRKGIZ9330-60-13 12:20:00Yellow *NA*(09/01/2011 07:20:00)[facility] [place]neLqjpiieUCUMIAJNG0733-40-61 08:00:002.8[facility] RobpvjuTZOOGERTN2986-53-70 08:00:002.8[facility] UrtoazhEYPYKBXIG8736-68-76 08:00:002.8[facility] XAGGFLRFE3307-26-75 08:00:002.8[facility] VbfzsdmBZBFGOERQ0125-50-20 08:00:002.8 [facility] IjmmojfEMKSUYUPT6168-63-84 08:00:002.8[facility] HermannCHEMISTRY 2011-09-01 07:47:001.5[facility] TdncpbaFDNCWAXVOA2587-56-16 07:47:00Slight (09/01/2011 02:47:00)[facility] PkqtumrUGAISQNLJB8748-83-13 07:47:001+ *ABN*(09/01/2011 02:47:00)[facility] XytecnmUOTKVKHXXS8916-62-37 07:47:00Slight *ABN*(09/01/2011 02:47:00)[facility] ZdzhyesETIWXRWYIJ9968-79-65 07:47:00Slight *ABN*(09/01/2011 02:47:00)[facility] UhlnkdxYRAGYUUCK7478-03-37 07:47:001.5 [facility] XtwtujiHPOBKYCPLS3031-76-40 07:47:00Slight (09/01/2011 02:47:00) [facility] IjwxrgwGEVHFBQALG3402-04-84 07:47:001+ *ABN*(09/01/2011 02:47:00) [facility] XgatrlkBJZXBRPRVQ9691-42-34 07:47:00Slight *ABN*(09/01/2011 02:47:00) [facility] XdhgyigWNQTDNBYKG6343-86-24 07:47:00Slight *ABN*(09/01/2011 02:47:00) [facility] QuazfsoKOFPZVBOF1884-89-85 07:47:001.5[facility] HermannHEMATOLOGY 2011-09-01 07:47:00Slight (09/01/2011 02:47:00)[facility]annHEMATOLOGY 2011-09-01 07:47:001+ *ABN*(09/01/2011 02:47:00)[facility]annHEMATOLOGY 2011-09-01 07:47:00Slight *ABN*(09/01/2011 02:47:00)[facility]annHEMATOLOGY 2011-09-01 07:47:00Slight *ABN*(09/01/2011 02:47:00)[facility] HermannCHEMISTRY 2011-09-01 07:47:001.5[facility] PssylopBTSFMJCYZB8903-85-10 07:47:00Slight (09/01/2011 02:47:00)[facility] JuwlwxiKWHYPRXFCU2604-56-23 07:47:001+ *ABN*(09/01/2011 02:47:00)[facility] QcnlzemWJRPNUMQLM3069-53-50 07:47:00Slight *ABN*(09/01/2011 02:47:00)[facility] SvozsggMQCFORYVOU2963-87-49 07:47:00Slight *ABN*(09/01/2011 02:47:00)[facility] OnzrdmuVZGBCHLME1731-72-08 07:47:001.5 [facility] LfpgudfCQAVWROZEB2073-88-35 07:47:00Slight (09/01/2011 02:47:00) [facility] ZsweqhwQJZVNJWSLQ0801-51-05 07:47:001+ *ABN*(09/01/2011 02:47:00) [facility] PnjolkxWLAAOHYNJM6259-15-61 07:47:00Slight *ABN*(09/01/2011 02:47:00) [facility] MzzczblJAIVAADLUK3863-52-29 07:47:00Slight *ABN*(09/01/2011 02:47:00) [facility] LtnmujzBZRJUDECB9410-75-87 07:47:001.5[facility]annHEMATOLOGY 2011-09-01 07:47:00Slight (09/01/2011 02:47:00)[facility]neannHEMATOLOG[facility] 2011-09-01 07:47:001+ *ABN*(09/01/2011 02:47:00)[facility] HermannHEMATOLOGY 2011-09-01 07:47:00Slight *ABN*(09/01/2011 02:47:00)[facility] HermannHEMATOLOGY 2011-09-01 07:47:00Slight *ABN*(09/01/2011 02:47:00)[facility] HermannBEDSIDE GLUCOSE VWOQPRC7963-86-40 17:02:84253Cdrqreco HermannBEDSIDE GLUCOSE TESTING 2011-08-23 17:02:40710Brqxolxe HermannBEDSIDE GLUCOSE UGBOGFZ0613-35-02 17:02:00 134[facility] HermannBEDSIDE GLUCOSE FLJSSJM9743-77-25 17:02:23879Wvtthhvj [place] BEDSIDE GLUCOSE NCNIHEA6669-40-61 17:02:09800Rohqzsyk HermannBEDSIDE GLUCOSE PFDKGZB8642-90-69 17:02:80453Qgcklbgk HermannBEDSIDE GLUCOSE FPDPKGO6525-58-17 13:45:75529Zprzorhg HermannBEDSIDE GLUCOSE QAWDMRL2478-04-54 13:45:63120Pzkrlejt HermannBEDSIDE GLUCOSE WGNJORB9242-74-18 13:45:28554Celiuapu HermannBEDSIDE GLUCOSE AYEDGJQ8283-30-37 13:45:64802Zwtgcdcm HermannBEDSIDE GLUCOSE TESTING 2011-08-23 13:45:10898Njzqmysw HermannBEDSIDE GLUCOSE JOXCFPZ0565-22-51 13:45:00 182[facility] DxxsuafXPOUVIFPF1920-70-09 10:22:003.0[facility] HermannCHEMISTRY 2011-08-23 10:22:001.8[facility] ZckbjlyMRKVOMUJT9712-69-39 10:22:96213Vpfhugpk ThunlzzUNDAMVNDF9344-18-98 10:22:003.0[facility] TvwosicAGTKBMEJD8460-62-78 10:22:74967Bupxlzlf ClmtnijXKOMVOYMQ4059-31-38 10:22:000.6[facility] DPOXOJEQQ5290-05-75 10:22:0023[facility] ZxrgcbnAPSJHBTZB4665-00-38 10:22:007.3 [facility] GbdnltvBJQIGCALE2580-98-01 10:22:08166Ubgmgdam HermannCHEMISTRY 2011-08-23 10:22:0014.0[facility] OabgdwmMSLRMTFHI8539-81-69 10:22:005[facility] ZdavzxvLQOTTGUCMQ3392-45-07 10:22:0069.6[facility] EgpyfjwVJCGVCEOZS4005-08-68 10:22:0021.5[facility] AmbqkeaSQLKMLANXL8528-25-55 10:22:007.6[facility] QITATLMCKG9244-60-81 10:22:001.0[facility] YgsihqqAOMIAWXXGU4357-00-57 10:22:000.3 [facility] EqiwdamAAKBYMXXAM3469-19-52 10:22:004.8[facility] HermannHEMATOLOGY 2011-08-23 10:22:000.1[facility] UnvumwuSFMHMNPODG5780-74-97 10:22:001.5[facility] TzsngvqRZCBNBWTVZ9534-96-07 10:22:000.5[facility] NwaxudvPSCIXGAUIT3581-16-58 10:22:000.0[facility] CovttgkPCQLCAUXAP9253-03-00 10:22:0011.0[facility] YLZYPZHIIF1412-83-67 10:22:02682Evbukucm TdlpcdwIPQSHCVUWJ2365-07-34 10:22:00 Test Item Value Reference Range Interpretation Comments MCH (test code = MCH) 29.6 pg 27.0-31.0 N [facility] MktooeqUDIHTXXZQP1379-44-48 10:22:0035.4[facility] HermannHEMATOLOGY 2011-08-23 10:22:0014.1[facility] WgvpyfzNJSDWCUCNH3604-73-72 10:22:006.8[facility] BaolryjKBMOKVLUIK3309-14-22 10:22:0083.5[facility] KguabezSLZITDBZQM8401-94-50 10:22:004.44[facility] LpgseciVJFCMUJWAG4053-15-53 10:22:0013.1[facility] VZKMYHHJJZ7910-90-55 10:22:0037.1[facility] BzgvrrzSIQBWSNGR0742-58-52 10:22:003.0 [facility] CiiehmnHKWCHQJNE1829-20-76 10:22:001.8[facility] HermannCHEMISTRY 2011-08-23 10:22:36930Ugbfrazn JybtfyxDBNXRSOMI7706-26-64 10:22:003.0[facility] GdsrdgrUGPJVQUWB0722-31-37 10:22:51013Bofdbswy MkmkcyhZBVPIXPQX8973-59-46 10:22:000.6[facility] VrqnxnvQSAIWEPCA7815-40-87 10:22:0023[facility] OVFCOSRZE0217-34-44 10:22:007.3[facility] NrbzvsmNPPLQLGNU2769-26-27 10:22:26228 [facility] EcdxbneYIHMCEQUU0061-55-33 10:22:0014.0[facility] HermannCHEMISTRY 2011-08-23 10:22:005[facility] KknaejbVJNRTRMTYJ9337-46-12 10:22:0069.6[facility] UoeqcqcKDQBKQDKTI4563-98-97 10:22:0021.5[facility] IwqfxndHHAPHQRYBP8776-88-08 10:22:007.6[facility] ByqcevbFGSUKKAABD3175-27-94 10:22:001.0[facility] ZIZWIONDEC8286-09-42 10:22:000.3[facility] ByffditPFYSIXPJOU8587-65-26 10:22:004.8 [facility] DdnukosHDUYYZEPFE5043-96-13 10:22:000.1[facility] HermannHEMATOLOGY 2011-08-23 10:22:001.5[facility] HugcjdrFGKCXOQBCS4711-87-98 10:22:000.5[facility] SpexveiROLQJYCHUV6504-26-44 10:22:000.0[facility] RbgdttoRSJAOGZLVT9401-03-85 10:22:0011.0[facility] GqntasgIJDFFVYCMA9065-69-66 10:22:10832Twndphrj Vin VHSVIAEFEY5428-06-98 10:22:00 Test Item Value Reference Range Interpretation Comments MCH (test code = MCH) 29.6 pg 27.0-31.0 N [facility] IgfzotdMONTWHREJR5611-79-44 10:22:0035.4[facility] HermannHEMATOLOGY 2011-08-23 10:22:0014.1[facility] DdrmtqhIBXJUFMXXT5570-59-12 10:22:006.8[facility] UtguickMHFIGMLPNR7632-43-22 10:22:0083.5[facility] BwhcmeqFATQMWYYWH8954-70-48 10:22:004.44[facility] PqkjjduDDHAVEKTYY8647-74-38 10:22:0013.1[facility] JBSLJKTOTV0595-56-72 10:22:0037.1[facility] QwmkjqrODYVFPQNU6610-67-09 10:22:003.0 [facility] EexynwpNXZIJLPKR7023-23-84 10:22:001.8[facility] HermannCHEMISTRY 2011-08-23 10:22:17841Quzlrxvc CntrxlvWZQGYHYAN9202-27-86 10:22:003.0[facility] FjwkrrpMJIAQGLJQ3788-28-11 10:22:30276Wcepwkta GgssgsfQBLVDEYMZ6205-92-89 10:22:000.6[facility] MvucsqaGRVLFEVCY6242-53-35 10:22:0023[facility] SUEAOUTHP3054-62-90 10:22:007.3[facility] PncsomdAIQBVNTVP8674-51-54 10:22:51739 [facility] DannbbnSXJFAKWVY1378-80-11 10:22:0014.0[facility] HermannCHEMISTRY 2011-08-23 10:22:005[facility] XoflsasFFOAXBFSUG4331-42-57 10:22:0069.6[facility] PvyqreuLPPCYMGKKU5611-37-66 10:22:0021.5[facility] IppvaabRNKTCDAVCN1057-05-37 10:22:007.6[facility] WdobnybHJLDBWOLKK2388-69-27 10:22:001.0[facility] AJHCNOWHEK5758-81-34 10:22:000.3[facility] OdbghnpRIDUISYQVK0112-42-46 10:22:004.8 [facility] CehpzzcQAERLTHLML8842-18-20 10:22:000.1[facility] HermannHEMATOLOGY 2011-08-23 10:22:001.5[facility] ZsmenodCJEYIKRNUF9798-11-15 10:22:000.5[facility] PcqeoflVEASDOULLJ8870-20-44 10:22:000.0[facility] TptqgleIMUSIJPQBZ4553-53-19 10:22:0011.0[facility] QrvulzfPGGTZQCNTQ1267-95-05 10:22:59239Zqqsbfcp Vin DJOHIFEUYP1925-56-09 10:22:00 Test Item Value Reference Range Interpretation Comments MCH (test code = MCH) 29.6 pg 27.0-31.0 N [facility] PgpunrlIHNTJLLIEU1874-16-45 10:22:0035.4[facility] HermannHEMATOLOGY 2011-08-23 10:22:0014.1[facility] EbfksvqTLYYEOQPXA1427-05-81 10:22:006.8[facility] VnycifoHMBDXJMRNP0134-13-84 10:22:0083.5[facility] VcjqulfZEMSSSZNQL5300-24-66 10:22:004.44[facility] TgvmlqtIPMSYEEVPV0312-64-92 10:22:0013.1[facility] BXSHKLROUB0519-00-97 10:22:0037.1[facility] PrgzxzjWVEKASOMD4900-27-34 10:22:003.0 [facility] FtybyrfINZOBXNQO8622-40-65 10:22:001.8[facility] HermannCHEMISTRY 2011-08-23 10:22:49740Sgqjgxbj DurboebKFQAMKVJE6985-00-52 10:22:003.0[facility] XtefwnyIYXZJHNJC4363-41-18 10:22:15171Xggfvekt HvhgngwDSROJCRKB7833-39-41 10:22:000.6[facility] FbwohxuMUEHJSQHN8672-63-05 10:22:0023[facility] GCPGBITTB2978-61-34 10:22:007.3[facility] BzmbtfvGINBHRLVS2218-63-99 10:22:43588 [facility] EmxnmupZOUCNWBOW4379-05-46 10:22:0014.0[facility] HermannCHEMISTRY 2011-08-23 10:22:005[facility] YymqrqgSOTZIFPIGE5018-97-27 10:22:0069.6[facility] TnmggbzSQTXJWUIJZ9222-43-40 10:22:0021.5[facility] YeqfrmlAOVTSHDDPZ2268-90-97 10:22:007.6[facility] PhtvpzyFPQBRVTBOU6710-45-80 10:22:001.0[facility] AQXKPFLLSB6258-44-58 10:22:000.3[facility] IewabcqFLOQRUDYMN1603-79-23 10:22:004.8 [facility] WgzzwufGAFLNXVCVU4944-58-07 10:22:000.1[facility] HermannHEMATOLOGY 2011-08-23 10:22:001.5[facility] CwcgdnoXZDPBTVTOC4978-08-90 10:22:000.5[facility] YrnwepiSAKWDXMPHH9867-14-83 10:22:000.0[facility] JsnshbuOLGWJMKVWN0460-15-05 10:22:0011.0[facility] PxyszwdJXJRPOJRXK5416-31-54 10:22:68273Hujpxrae Vin RFMTWEUURI0314-55-15 10:22:00 Test Item Value Reference Range Interpretation Comments MCH (test code = MCH) 29.6 pg 27.0-31.0 N [facility] RiyarmjQYZFHBOFOH5332-46-77 10:22:0035.4[facility] HermannHEMATOLOGY 2011-08-23 10:22:0014.1[facility] GkfukreMXPFXKQWXQ6191-24-55 10:22:006.8[facility] OzwqoawWSYJFBWNCV0497-02-50 10:22:0083.5[facility] JpakpbaSWJFNUHQTR9452-04-01 10:22:004.44[facility] CkjxrwjVROXMAHQUE3596-66-89 10:22:0013.1[facility] KZYGPVNLPF9349-69-22 10:22:0037.1[facility] QunhlteORJZMOFEQ7916-65-33 10:22:003.0 [facility] LdhvvqaTXQGHFJBD0769-97-49 10:22:001.8[facility] HermannCHEMISTRY 2011-08-23 10:22:72472Msprxfsn GnahfnzBWKNAFWRD2255-85-76 10:22:003.0[facility] JqxvpjfDKJOSAEVX8019-25-76 10:22:02312Snzdhrjz ZlrvazgZKAVNFGTV8424-56-84 10:22:000.6[facility] HlbxnxkCAUKXZOUE4193-63-53 10:22:0023[facility] CKDXYUCFK9921-00-21 10:22:007.3[facility] MwfjesyEDHBOBURB8800-73-58 10:22:76394 [facility] YqkexouKQCIQJGER0077-96-57 10:22:0014.0[facility] HermannCHEMISTRY 2011-08-23 10:22:005[facility] QiaokuiCRDHTWUNOF5485-26-44 10:22:0069.6[facility] KwsiuogZZVKPWZWIN0279-45-67 10:22:0021.5[facility] XpiskflLSZASDGZVY4949-71-82 10:22:007.6[facility] PhtaixaPKZAQNOVLT0285-98-99 10:22:001.0[facility] PFCGBVAQLO8407-11-78 10:22:000.3[facility] ZtkguncSQVOMSPVJT9369-06-27 10:22:004.8 [facility] JqrgmfwYDTNTONDRE5462-32-90 10:22:000.1[facility] HermannHEMATOLOGY 2011-08-23 10:22:001.5[facility] FsojxgeMVVQQVGSRR3192-01-86 10:22:000.5[facility] MlelmjoNOVWDTQAGV9590-49-94 10:22:000.0[facility] VduakfzKKEYTQILOU0058-47-77 10:22:0011.0[facility] RsdfdhfTWMGEWAFSQ2955-82-86 10:22:50074Evadgsxk [facility] AZHBSQAZFP7968-33-75 10:22:00 Test Item Value Reference Range Interpretation Comments MCH (test code = MCH) 29.6 pg 27.0-31.0 N [facility] CahkujaQIKIUWULJR2229-16-17 10:22:0035.4[facility]annHEMATOLOGY 2011-08-23 10:22:0014.1[facility] NjlexsgCZSCMTVKCV2499-57-73 10:22:006.8[facility] NkyfvijNOTEYWBXXM6003-93-76 10:22:0083.5[facility] RyexylpZPBKNARJLX3878-51-53 10:22:004.44[facility] AzkwwoaDTNFDMHOFX4026-98-59 10:22:0013.1[facility] BSXUOXUSQS7179-86-26 10:22:0037.1[facility] YnppltsLJADNCJCIN6886-21-68 10:22:00 13.1[facility] NaiwbuwVQXBDUYJWR9154-20-86 10:22:0037.1[facility] HermannCHEMISTRY 2011-08-23 10:22:003.0[facility] VvokmcwEHNSRSSCP5853-62-21 10:22:001.8[facility] TlwygblKGZKYLCGW8367-86-59 10:22:90562Fzqbuned SbtrfsdBJDWGDMVH9926-89-90 10:22:003.0[facility] UjefbvhGVDUPPMDD8128-92-04 10:22:29234Mdjvfbkr [place] JJDZLHJWD7280-26-43 10:22:000.6[facility] EwgvjrcFASBXLOQJ0938-92-14 10:22:0023 [facility] JhphpkbJKELSBQRL4575-57-31 10:22:007.3[facility] HermannCHEMISTRY 2011-08-23 10:22:40199Tnhkelee EadxgwoYTKNTAJHT9549-54-37 10:22:0014.0[facility] KgiucmyTLSTSXCAZ9690-67-05 10:22:005[facility] JupemtxBGHXMCKOEL4032-04-08 10:22:0069.6[facility] IbelvjdOZXSOCOYJK1388-03-05 10:22:0021.5[facility] QBZDPHCQXR8203-29-83 10:22:007.6[facility] TlqrrhzHJTIPXXUSP5366-69-57 10:22:001.0 [facility] YyjfoofJVOECJFIWY8961-42-42 10:22:000.3[facility] HermannHEMATOLOGY 2011-08-23 10:22:004.8[facility] DnhxgwtJRULRTZZUK6356-79-50 10:22:000.1[facility] VvhegauHPPLBCFEWN7057-72-26 10:22:001.5[facility] GnlrczsWMIMZCFZYH5719-78-36 10:22:000.5[facility] FjfylowSXBPTFMJGZ3706-78-57 10:22:000.0[facility] SCRXAAOASF5095-12-72 10:22:0011.0[facility] IullegcUJKSRDERWR8642-71-46 10:22:00 161[facility] VajfrhcPTEZLLPYDE2820-45-16 10:22:00 Test Item Value Reference Range Interpretation Comments MCH (test code = MCH) 29.6 pg 27.0-31.0 N [facility] NwdrsatUFWGTFUNFA6181-71-55 10:22:0035.4[facility]annHEMATOLOGY 2011-08-23 10:22:0014.1[facility] SrvilynAFWMMFWXJS2347-29-33 10:22:006.8[facility] VsttkpuMROEJFQAGC8105-80-83 10:22:0083.5[facility] KwjcxmbERPDPYDISY9542-08-42 10:22:004.44[facility] HermannBEDSIDE GLUCOSE ZQQJTGY0225-93-23 02:20:21061 [facility] HermannBEDSIDE GLUCOSE IOEDNQB7436-35-69 02:20:64465Adjzvkst Vin BEDSIDE GLUCOSE AKVVERK7741-73-72 02:20:48599Pmanzwlv HermannBEDSIDE GLUCOSE AAVJKWY9701-77-21 02:20:66783Zwshbecy HermannBEDSIDE GLUCOSE HKDIOZC5590-22-40 02:20:59418Qmjqbwun HermannBEDSIDE GLUCOSE OIAMGSY3917-55-06 02:20:78612Iitxstpv RscyvicAEKOKOEBY0677-90-95 09:47:002.5[facility] RkoonkfQNNBJUYNT0103-06-67 09:47:69966Pcjyzriy TcstzzvMNKKZYBPJ4014-12-26 09:47:007[facility] RFYJFTEBT0071-76-27 09:47:0019[facility] VbypsamLEWNNIKGC7447-08-96 09:47:000.3 [facility] ZgjknxxWNPQHZYQX0909-08-44 09:47:91557Mjietkbr HermannCHEMISTRY 2011-08-22 09:47:55155Megxmkgo ChsidyfYMZJNDTKT7873-19-93 09:47:003.emorial LkygfgkIWFFVSWRC6422-38-28 09:47:007.9[facility] SsgtaiyPDLEJVVCW0327-79-67 09:47:0018.6[facility] CxufuttPTMCZLNKC3720-30-65 09:47:001.6[facility] GRYKLZYZHF4223-16-32 09:47:000.0[facility] YwhwuymFLXGKSIBRI4963-42-93 09:47:000.4 [facility] VvzwwfyREYKWUFZDI5198-24-86 09:47:000.5[facility] HermannHEMATOLOGY 2011-08-22 09:47:005.9[facility] CekcnpbWWXAYZANIN0367-54-00 09:47:001.2[facility] BlfhumqSEJOLKVJHN2820-22-35 09:47:000.5[facility] OuoysqzWMNRCQCUTA7803-54-59 09:47:000.0[facility] QnlolzmYXMLKZQYMK4113-97-54 09:47:0076.9[facility] FAAVAQSZNL0743-94-64 09:47:0015.9[facility] WztdgbxDCLNJRKMHJ7764-31-48 09:47:00 6.3[facility] MyhavqoZBODUOTURM3662-39-04 09:47:0082.8[facility] HermannHEMATOLOGY 2011-08-22 09:47:0039.7[facility] JukfzajWNBHAQEKQL2369-05-09 09:47:00 Test Item Value Reference Range Interpretation Comments MCH (test code = MCH) 29.1 pg 27.0-31.0 N [facility] VpcyiyhAGDYFHLZLV6957-50-68 09:47:0014.0[facility] HermannHEMATOLOGY 2011-08-22 09:47:0035.2[facility] CqxfsvhNFMNYTZXAM0268-08-17 09:47:0013.9[facility] QnibuikRJCKOTWGPS1021-80-06 09:47:56499Rzimdxgl WuwznknWTDCYTUOPK1683-44-80 09:47:0011.9[facility] CctnsqyUVMPGLMRXY0864-89-63 09:47:007.7[facility] QKAEDTMGDP2198-46-07 09:47:004.80[facility] FhdnyvfARQLWHQBC2400-79-65 09:47:002.5 [facility] GymfsrsGTPVYGVDT2486-64-04 09:47:24689Kcvgdrxo HermannCHEMISTRY 2011-08-22 09:47:007[facility] JfwdvlsQFGBTNJGJ7995-91-05 09:47:0019[facility] JyxfbhkBDNFHLTPV3648-28-09 09:47:000.3[facility] StxxmaiWZQMVYOCP3380-99-23 09:47:81307Zodjnpis KctsnnuFNRSMKJBE0127-49-69 09:47:32094Oexphfqw Vin CFAKLLAQG2595-31-61 09:47:003.6[facility] MovggkzDDPSPDPZO0773-03-20 09:47:007.9 [facility] AlellpuKFPXBHNSI3299-92-19 09:47:0018.6[facility]annCHEMISTRY 2011-08-22 09:47:001.6[facility] UxzdbcyTGKLGJJHMK0539-18-75 09:47:000.0[facility] BfplxzvFAICEHDAYK3768-19-22 09:47:000.4[facility] GrxvhvcRQGRUELKIJ2067-42-15 09:47:000.5[facility] EazbjbwOLUJGDPZYD8318-78-95 09:47:005.9[facility] AVRXTZRYSO1793-88-20 09:47:001.2[facility] SevgtbiUFPXFHVKMW8983-12-49 09:47:000.5 [facility] KclxmsdPPESOBHVFO6728-46-14 09:47:000.0[facility]HE[facility]OLOGY 2011-08-22 09:47:0076.9[facility] UmfsyerVSMWZAXRUX0973-13-55 09:47:0015.9[facility] IabioymIDKWYDEJPR7217-93-79 09:47:006.3[facility] ZirbdnyBYOBHOSKIW9578-14-08 09:47:0082.8[facility] GyubsytPDLZZXOQFR6166-71-05 09:47:0039.7[facility] WLHPGJPTCN7456-60-93 09:47:00 Test Item Value Reference Range Interpretation Comments MCH (test code = MCH) 29.1 pg 27.0-31.0 N [facility] XchswkfHPTQATONGO6861-91-43 09:47:0014.0[facility]annHEMATOLOGY 2011-08-22 09:47:0035.2[facility] TmkpjbhOXMLMSTCJY7235-04-44 09:47:0013.9[facility] GtyqsygICHEWELSXF8760-80-98 09:47:60785Taivsvrb NqzzwdtJZWQQCFOKL0918-03-87 09:47:0011.9[facility] LkalzetVKOTZJPSUC2607-76-87 09:47:007.7[facility] QRQOZMTBAT6914-52-68 09:47:004.80[facility] AkydbdcEICCNYAEX3958-32-65 09:47:002.5 [facility] RvqrzacYDFKKGYAV8658-03-03 09:47:66453Cmsojaye HermannCHEMISTRY 2011-08-22 09:47:007[facility] RfxxnegLWPNJHQWN8747-72-46 09:47:0019[facility] BgnyrwmEOQPQIXAU7740-99-51 09:47:000.3[facility] JhavtboMBCPHBNEN9829-80-05 09:47:55454Gnxmhqve TixbxoaOQPDBGQPG3104-67-39 09:47:81871Eziirhlx Vin XADOZUTZE9792-37-83 09:47:003.6[facility] IwvvfbmKXRTCJQVR9309-73-55 09:47:007.9 [facility] IivnmhnCQPSWZNRD5019-19-63 09:47:0018.6[facility]annCHEMISTRY 2011-08-22 09:47:001.6[facility] QmdbhusVPAUXOMVLY9601-38-47 09:47:000.0[facility] GtkaqnhYMVNWVBOAU9178-13-01 09:47:000.4[facility] GgwfwstIAYEUDBOHF6967-36-55 09:47:000.5[facility] UpsstrdPYLNSYJGQE2826-51-37 09:47:005.9[facility] DWTAIWIDYV9086-16-87 09:47:001.2[facility] YswzcziANSKIESAFZ3546-35-68 09:47:000.5 [facility] BaqeuzyFBTQECEGHU4344-24-16 09:47:000.0[facility]annHEMATOLOGY 2011-08-22 09:47:0076.9[facility] TcwnuxjKKCGOOHLMG4008-20-71 09:47:0015.9[facility] ErqpcpxHCMWBCGAKA2631-25-67 09:47:006.3[facility] PbreolpJXUWJKFKTK1481-52-77 09:47:0082.8[facility] HslatdnRRLIWXCZPL0939-39-80 09:47:0039.7[facility] MAPZOLIVOP1341-86-24 09:47:00 Test Item Value Reference Range Interpretation Comments MCH (test code = MCH) 29.1 pg 27.0-31.0 N [facility] KdswvfxNDDNIMTDTZ3064-53-27 09:47:0014.0[facility]annHEMATOLOGY 2011-08-22 09:47:0035.2[facility] VgacplbXKAFFJAZVN0408-82-12 09:47:0013.9[facility] FdwukbbAFBDEPSSGW8295-18-21 09:47:41745Fdsjjdqn SkjbgteMSKZLDBHGX5164-57-84 09:47:0011.9[facility] KomtnkwZYVEZDQQTY1508-56-57 09:47:007.7[facility] BGGTZBTLWW6315-41-63 09:47:004.80[facility] QqovonjZHVVTTJUS7154-35-38 09:47:002.5 [facility] HwmgcmpFXTVWBEGW5748-62-77 09:47:28668Tdfekosd HermannCHEMISTRY 2011-08-22 09:47:007[facility] JazkwzmOINEFFKTI3705-44-92 09:47:0019[facility] NoysiqgWGRQLWENY8847-34-67 09:47:000.3[facility] DlqklhjTFLJOFKIB1010-80-65 09:47:17566Lavbtnoz ZmobepdCMZTRDOZX1902-42-51 09:47:32717Jycobmhg Vin EZMDJXDZX0192-64-32 09:47:003.6[facility] StqamjpDMMHHUAOF5276-94-08 09:47:007.9 [facility] PaktolwALSRDMMZD2480-72-88 09:47:0018.6[facility]annCHEMISTRY 2011-08-22 09:47:001.6[facility] KlafeirTRWIKRYMID5401-31-84 09:47:000.0[facility] DxayrrtXARMUAJHMI0631-05-91 09:47:000.4[facility] HhrmbxzPZQFDZGFXT6875-62-14 09:47:000.5[facility] YmqrxafJHVCRQPUFV1741-38-80 09:47:005.9[facility] LDHPEBLWWY0127-59-98 09:47:001.2[facility] BtbpwjpQSBZUCTLRD3438-46-15 09:47:000.5 [facility] NrewfzrLTHGFWZATY5574-05-99 09:47:000.0[facility]annHEMATOLOGY 2011-08-22 09:47:0076.9[facility] BabhwdwEWGOVYGPOO5217-94-17 09:47:0015.9[facility] NhmtydzPNXHZDNRAK9493-01-09 09:47:006.3[facility] IbdldktFIULXOJSLO7195-90-59 09:47:0082.8[facility] TapmmciEPYNRLYEQG8673-05-85 09:47:0039.7[facility] JKCXOYKZZK0628-89-86 09:47:00 Test Item Value Reference Range Interpretation Comments MCH (test code = MCH) 29.1 pg 27.0-31.0 N [facility] KnzolkqFVMQMZMMSL8835-21-02 09:47:0014.0[facility]annHEMATOLOGY 2011-08-22 09:47:0035.2[facility] VghajyzPXEAKKLZJD7820-77-58 09:47:0013.9[facility] GupdrscSNHVKYOGII9856-73-62 09:47:60510Spmddwio UokjpokZUMCRZKVYR5079-60-42 09:47:0011.9[facility] MqqbhylAHSXGXUWBB7907-29-77 09:47:007.7[facility] NYVDERVKQJ2380-89-22 09:47:004.80[facility] RyymobxOYVSQTUQC1839-20-53 09:47:002.5 [facility] VczbalsOASHXLTCY5254-29-41 09:47:31473Axpmblpm HermannCHEMISTRY 2011-08-22 09:47:007[facility] BsucpwvDYYTAWXFH8508-87-33 09:47:0019[facility] QfwmalaHWXWSPVLK5585-72-19 09:47:000.3[facility] PqaomytFPLSPNOSO2951-19-46 09:47:24551Bqmaoznc LcztzsgNKTBVTKUZ8514-89-12 09:47:22885Txcdbomm [place] GKFDSPRGA0114-87-62 09:47:003.6[facility] HjflynkYJULTXFPO3296-40-10 09:47:007.9 [facility] XdmgteiQXDZSYFDG6638-86-07 09:47:0018.6[facility]annCHEMISTRY 2011-08-22 09:47:001.6[facility] GhlgoapQIDJEWLBUG0526-09-26 09:47:000.0[facility] ZiqijwqMDGTQBZYMO7976-80-93 09:47:000.4[facility] XffmgdrEXMIEVIPXC5821-66-76 09:47:000.5[facility] OdndbedBZHGAOVVTE5385-58-84 09:47:005.9[facility] JWRNONPMZW0262-50-48 09:47:001.2[facility] RypuomrCBFQMUDDOW8669-46-69 09:47:000.5 [facility] FjvxdxtDTMFFYQZSA9098-54-97 09:47:000.0[facility]annHEMATOLOGY 2011-08-22 09:47:0076.9[facility] CbseibtHKSGITHVLM4478-87-26 09:47:0015.9[facility] YilltecBMLAMTRHTF7011-94-56 09:47:006.3[facility] CzotjgaOSUUYWZHZG9839-60-47 09:47:0082.8[facility] DpothspSPHGJFGQOJ6079-78-29 09:47:0039.7[facility] EDAYSIMSZC1113-17-24 09:47:00 Test Item Value Reference Range Interpretation Comments MCH (test code = MCH) 29.1 pg 27.0-31.0 N [facility] SekdmsvOHLQPPDEEL5982-27-55 09:47:0014.0[facility]annHEMATOLOGY 2011-08-22 09:47:0035.2[facility] GegoazbWOOAZOGJIR1259-11-50 09:47:0013.9[facility] PfatrvcJJFKOQRWLY9950-66-24 09:47:30170Juubleyg HxbtrusAHQLOVPCYR1512-72-43 09:47:0011.9[facility] CxhiqurSGEPVLQZUR0809-98-81 09:47:007.7[facility] LQYOGPARYX9362-53-53 09:47:004.80[facility] LfqmcxdIGMOVALDR0745-61-05 09:47:002.5 [facility] KxqqryyBYFQPYHFI6661-29-93 09:47:54109Uskcnmlb HermannCHEMISTRY 2011-08-22 09:47:007[facility] TpemipmPTNWYDBBM2913-84-18 09:47:0019[facility] RbhphgvHETIJIBRV6086-82-92 09:47:000.3[facility] HvgezijCGAFKEGVR9590-62-96 09:47:66968Gviliadk DnouqmyCFYXRHMJI1105-74-00 09:47:56103Qrsmyzkm Vin MUZSGHITC2449-20-85 09:47:003.6[facility] ZecszdwZMDBHMSGE9293-64-67 09:47:007.9 [facility] KzzwvpuUOOQWQYRO3795-51-48 09:47:0018.6[facility]MI[facility]Y 2011-[facility]-22 09:47:001.6[facility] WmjzqlvRNCXIYNXPG6611-75-43 09:47:000.0[facility] HenjtjwRYDPWLDLXT1523-10-39 09:47:000.4[facility] RnixozxPZDDTWSJID0201-82-84 09:47:000.5[facility] FshujguQKGEOPFPAH6973-00-70 09:47:005.9[facility] SNKJYZKEYA9001-70-63 09:47:001.2[facility] KynrmrwPXDIJLBTJN4180-74-35 09:47:000.5 [facility] ZbtqvwhIWRDUXBQOQ7905-45-68 09:47:000.0[facility]annHEMATOLOGY 2011-08-22 09:47:0076.9[facility] IqlzxjqNAKBUMETUQ0455-31-63 09:47:0015.9[facility] XraoisdJKWMZUHMNM3384-10-15 09:47:006.3[facility] CsxngizBWLICIBSQO1699-52-71 09:47:0082.8[facility] HzqfcfeXYUKMUDQLO3774-78-67 09:47:0039.7[facility] GWKALWOWLL2218-21-86 09:47:00 Test Item Value Reference Range Interpretation Comments MCH (test code = MCH) 29.1 pg 27.0-31.0 N [facility] LkkocicQPRMWOXUIN5686-87-56 09:47:0014.0[facility]annHEMATOLOGY 2011-08-22 09:47:0035.2[facility] WluamttNZEGFCOHUO3627-85-31 09:47:0013.9[facility] JpqjworQLJBHWDCAP8211-83-36 09:47:15985[place] XlvzypmDOQYFOVFWT0518-01-92 09:47:0011.9[facility] OmajflsZIXLTJVLUP3784-54-63 09:47:007.7[facility] SQQRCOQKFU4060-10-22 09:47:004.80[facility] YybxaksALZYQPDFD2748-88-34 10:28:002.6 [facility] VnepvtkYGUFGHTXE8897-69-23 10:28:001.8[facility]annCHEMISTRY 2011-08-21 10:28:003.7[facility] BzhpivvCKVMWQQDR4946-60-96 10:28:80393Qgnuyrst BjelzvbCKNFRGWSN7408-15-62 10:28:000.6[facility] PoanwuqBISILTDUE1502-95-94 10:28:0016[facility] BvifzhjZIMRUTAFK0965-79-86 10:28:91192Wfzbebps [place] QLNZMVDUM5648-77-69 10:28:008.3[facility] RhmuurdUZBKZMYIP2228-56-89 10:28:0019.7 [facility] KvgvwxiMLHLSMSEZ7967-87-26 10:28:0099[facility]annCHEMISTRY 2011-08-21 10:28:0022[facility] VsemjezWWCONGHUOX0592-34-28 10:28:16399Gajhboli HrnzoqqRCNKCTEHNH9696-08-50 10:28:0012.0[facility] IacximrSWBQXFPLGI0684-14-59 10:28:007.3[facility] FmztttsPKNFBGAGAM9581-63-95 10:28:0014.6[facility] XCIFESPBCB1885-10-96 10:28:0035.0[facility] RablbvwZGIXEJVOMS3795-59-73 10:28:00 4.54[facility] GmfxygbZSJGBZMFLQ3465-26-57 10:28:0037.6[facility]annHEMATOLOGY 2011-08-21 10:28:0082.9[facility] PjrpfpjCIBYUIHLPN7150-14-51 10:28:00 Test Item Value Reference Range Interpretation Comments MCH (test code = MCH) 29.0 pg 27.0-31.0 N [facility] UyepdcpGLZVGAJDBP3293-83-36 10:28:0013.2[facility]annHEMATOLOGY 2011-08-21 10:28:00Slight *ABN*(08/21/2011 04:28:00)[facility] 2011-08-21 10:28:00Slight (08/21/2011 04:28:00)[facility]Y 2011-08-21 10:28:000.0[facility] XyqewmqMAJNWWTLEF7277-69-15 10:28:00Slight (08/21/2011 04:28:00)[facility] BgqrcspLSCPJIGBTA2797-52-80 10:28:000.6[facility] JthqmtdHHEKQEIZRX6367-62-37 10:28:000.0[facility] DvpupcdPPSYOFOCRF2354-51-93 10:28:005.3[facility] JyjlobnLRQSRKBDQT4651-37-37 10:28:001.3[facility] [place] MRPVNJLPUI2907-69-83 10:28:000.5[facility] VhykwhjNMCGBRIPZH6578-97-33 10:28:008.5 [facility] ZnuffbeKTONRXZXWY5766-10-24 10:28:000.3[facility]annHEMATOLOGY 2011-08-21 10:28:0017.3[facility] LmuvvbuUINYFMSSED0680-37-24 10:28:0073.4[facility] AsfjmnrUIUECDAKY1322-57-56 10:28:002.6[facility] UurhpikPOXNQKZJJ9299-46-82 10:28:001.8[facility] MghmbudHJFQPCZFY5337-44-32 10:28:003.7[facility] JTDGGTTKM4010-55-22 10:28:72362Egezdvpx TjonixpJLGQRJDWH2849-95-14 10:28:000.6 [facility] JmrvwtdRRDZHBGDV2694-60-97 10:28:0016[facility]annCHEMISTRY 2011-08-21 10:28:61002Ohawehnf KqbssxaQAYMERUCS3844-02-02 10:28:008.3[facility] BdcnahxAPEVOGNZX8853-96-73 10:28:0019.7[facility] TwcjzamZPXOZLKGK4446-73-00 10:28:0099[facility] VvhcgswMOLZBSTBJ5995-24-30 10:28:0022[facility] OEQDIZAIRM1476-75-77 10:28:73778Qsuhgwrw FzvuvfmFOANJRIEMA7909-35-60 10:28:00 12.0[facility] PiiywweMVQWZMTDBB7645-12-33 10:28:007.3[facility]annHEMATOLOGY 2011-08-21 10:28:0014.6[facility] AttittyGEGEOMEWLT2415-18-81 10:28:0035.0[facility] RzsylsyKKLSATRAFZ6703-58-10 10:28:004.54[facility] OvdfibmTMRPBCCAKI0018-68-32 10:28:0037.6[facility] LifoeafBFDFMUZTEY4830-46-72 10:28:0082.9[facility] [place] OZCTQXSEZD5856-06-19 10:28:00 Test Item Value Reference Range Interpretation Comments MCH (test code = MCH) 29.0 pg 27.0-31.0 N [facility] HcablqbKZKSYZXKHK1459-04-03 10:28:0013.2[facility]annHEMATOLOGY 2011-08-21 10:28:00Slight *ABN*(08/21/2011 04:28:00)[facility]HE[facility] 2011-08-21 10:28:00Slight (08/21/2011 04:28:00)[facility]HE[facility]OLOGY 2011-08-21 10:28:000.0[facility] DicjmdwMXWSMVSYUZ3341-41-90 10:28:00Slight (08/21/2011 04:28:00)[facility] DasahtlBXGHKFNDDF9955-45-22 10:28:000.6[facility] UuvhrifWSFJCYOBYO9315-89-26 10:28:000.0[facility] GumyyexGAAEEQAVBD5505-54-09 10:28:005.3[facility] CvuidfnYNHOIUKKLV1098-16-66 10:28:001.3[facility] DHSSFNNAND7220-42-23 10:28:000.5[facility] VrbedowANCYDMHXFJ2176-65-27 10:28:008.5 [facility] ZhnonkoRUERTRHMEU6846-69-84 10:28:000.3[facility]annHEMATOLOGY 2011-08-21 10:28:0017.3[facility] LqfzynhKSPBLBBIED0671-81-42 10:28:0073.4[facility] GzrnrpfHQMLPTDGT9635-54-99 10:28:002.6[facility] IscnrgjFKHXVHPVO8920-72-86 10:28:001.8[facility] IcpvzmlMPJNHRSQQ1425-70-51 10:28:003.7[facility] MIOULPLMJ3007-39-13 10:28:32288Wojqoulg UnsuafkZOXKWAQFT4863-93-87 10:28:000.6 [facility] FbpcplnKTCJKSHHT4033-95-33 10:28:0016[facility]annCHEMISTRY 2011-08-21 10:28:59376Kmsimxho IpukbtwLZYLLZNHI7969-07-45 10:28:008.3[facility] HzwgtetFJHJXOJYO9164-70-35 10:28:0019.7[facility] JhzsbsqQHPSSDRIH1136-97-70 10:28:0099[facility] HjqhfxzLKOPJNNSL3319-09-64 10:28:0022[facility] WLICCNASAP1239-09-34 10:28:15695Wvgsakmd RxzurfvZRNWTBFFCZ7820-37-63 10:28:00 12.0[facility] ZwmzeppPYDBHLVXYG6438-79-39 10:28:007.3[facility]annHEMATOLOGY 2011-08-21 10:28:0014.6[facility] XjtfpxqTHAGVCNVJG7382-56-07 10:28:0035.0[facility] KrsadhnIKZARMMOWP7220-73-05 10:28:004.54[facility] AbiropdQSMMNWZIMV0022-20-90 10:28:0037.6[facility] NjklwlpDUZPMVELAZ7914-06-94 10:28:0082.9[facility] TBYLUVWWPL1348-95-83 10:28:00 Test Item Value Reference Range Interpretation Comments MCH (test code = MCH) 29.0 pg 27.0-31.0 N [facility] JqzxisaHXBPVOLCCN7119-43-28 10:28:0013.2[facility]annHEMATOLOGY 2011-08-21 10:28:00Slight *ABN*(08/21/2011 04:28:00)[facility] 2011-08-21 10:28:00Slight (08/21/2011 04:28:00)[facility] 2011-08-21 10:28:000.0[facility] TqfrvlqWILPSCPYSZ1396-66-04 10:28:00Slight (08/21/2011 04:28:00)[facility] QunmkcfWJMTDGBVNV1899-04-85 10:28:000.6[facility] BuhhvmkMYLAZWMYXU2540-71-30 10:28:000.0[facility] GprdfboDWFABNOYVZ2783-83-43 10:28:005.3[facility] CcwukqjPPAATWJULS6734-11-79 10:28:001.3[facility] CIQEKHXCQO5973-31-90 10:28:000.5[facility] BagxjtfWYZUIXUMQB7834-23-06 10:28:008.5 [facility] NlcyxaoUBKYUEYQFE5797-76-79 10:28:000.3[facility]annHEMATOLOGY 2011-08-21 10:28:0017.3[facility] GgvjtdwDWZODRPXKJ5762-24-83 10:28:0073.4[facility] JwhhsysREVETBYMX3125-17-99 10:28:002.6[facility] KwsseyrUGOVNHSHM6481-50-13 10:28:001.8[facility] OgekjkwZKEATPPFE0598-11-32 10:28:003.7[facility] DIPKBMKVM0388-45-59 10:28:38811Kxhbgwnc OdgdsjfWIGBGLSGP1731-81-64 10:28:000.6 [facility] BpwezzrWJXWJZZMH2900-16-42 10:28:0016[facility]annCHEMISTRY 2011-08-21 10:28:54255Ggtpwxon GrzsawrBAORUGDXI8301-26-92 10:28:008.3[facility] CheznvxNOEUFCSPM6393-08-87 10:28:0019.7[facility] McwglnfJRSGKZMEC9816-74-24 10:28:0099[facility] YfiogeeYJXSODOVG9697-71-32 10:28:0022[facility] ISQRMCPHXC0805-29-29 10:28:38346Blieqdbf LxjowdyKWQCDHNZBJ5212-71-95 10:28:00 12.0[facility] LgtytmiJBJZQQXLHE1603-48-99 10:28:007.3[facility]annHEMATOLOGY 2011-08-21 10:28:0014.6[facility] PrhriujOGNBOEXPBA6330-79-72 10:28:0035.0[facility] YvzkqicWJOVODTESU2656-31-24 10:28:004.54[facility] RmoumngCKUGDBDGQH0186-15-77 10:28:0037.6[facility] IyubdhxJVOSJIJZGG4890-46-70 10:28:0082.9[facility] VBBEQNVITJ5091-38-33 10:28:00 Test Item Value Reference Range Interpretation Comments MCH (test code = MCH) 29.0 pg 27.0-31.0 N [facility] KruforvQMNYLCURGT1524-41-28 10:28:0013.2[facility]HEMATOLOGY 2011-08-21 10:28:00Slight *ABN*(08/21/2011 04:28:00)[facility] 2011-08-21 10:28:00Slight (08/21/2011 04:28:00)[facility] 2011-08-21 10:28:000.0[facility] FhxtzztATBDZIIGYD8602-75-33 10:28:00Slight (08/21/2011 04:28:00)[facility] IfbsxwwUAOEQMSUXD4710-90-22 10:28:000.6[facility] YawijbzKBMBNXYIMV1267-18-70 10:28:000.0[facility] QeqjopuLBOCNRJFUR5739-00-02 10:28:005.3[facility] ZgajyccAVOBWWWNWO9442-63-00 10:28:001.3[facility] YJPZIJZTSI7462-14-80 10:28:000.5[facility] FecywewUMKXAPWDEU3703-74-53 10:28:008.5 [facility] DgyncfeSWJAXHDJPY2171-05-15 10:28:000.3[facility]annHEMATOLOGY 2011-08-21 10:28:0017.3[facility] HgeelvbYGBVAQHYMP2812-82-72 10:28:0073.4[facility] TpcgrfyWOZGHWDVE0119-03-60 10:28:002.6[facility] ZpzvuvoJPRCOAWIZ6806-42-75 10:28:001.8[facility] BtlmfmrNMSTWDBBV7732-89-27 10:28:003.7[facility] QPWMSPHRK2661-81-58 10:28:18011Gsekwmje UfmivggZLQIAIULQ8738-62-02 10:28:000.6 [facility] VevqqbeYOSTNRZMU4312-41-30 10:28:0016[facility]annCHEMISTRY 2011-08-21 10:28:23504Sxeyplgl JbvomepSXCFCGMRL3721-39-98 10:28:008.3[facility] DjgyuzkGVABUYDCK5856-71-97 10:28:0019.7[facility] YrazrxvLHEPMSLMG9078-70-89 10:28:0099[facility] PzahvaqOZSQHCQXI5242-24-78 10:28:0022[facility] TSRFGSOEEM3534-97-41 10:28:37247Dwtlrfsf KusogaqVVGPPKMZOZ5039-86-33 10:28:00 12.0[facility] IodfmniOXFYYFSSMF6942-86-88 10:28:007.3[facility]annHEMATOLOGY 2011-08-21 10:28:0014.6[facility] WheyxtbKMKMGEMPRL1957-87-18 10:28:0035.0[facility] BsxllduIXLRXRCTTO5425-56-20 10:28:004.54[facility] EjfindrGGEZKYXNSR9378-07-88 10:28:0037.6[facility] TctjfjiFPNXLYJBCU4953-84-32 10:28:0082.9[facility] DRRKYNJRER9573-55-23 10:28:00 Test Item Value Reference Range Interpretation Comments MCH (test code = MCH) 29.0 pg 27.0-31.0 N [facility] NtxcrscXYRPQMGRLG3700-36-12 10:28:0013.2[facility]HEMATOLOGY 2011-08-21 10:28:00Slight *ABN*(08/21/2011 04:28:00)[facility] 2011-08-21 10:28:00Slight (08/21/2011 04:28:00)[facility] 2011-08-21 10:28:000.0[facility] IqvvbmwFLMXEFBOPK8761-92-30 10:28:00Slight (08/21/2011 04:28:00)[facility] RxlnerlWURADXYWCD4333-50-08 10:28:000.6[facility] JikzjndPPUCJKONVZ6561-68-46 10:28:000.0[facility] ObyhhduAFAAHQUQQQ3849-38-59 10:28:005.3[facility] CpikclwPLGUVNCCUV9091-09-46 10:28:001.3[facility] TRHVVPEOXB9720-12-69 10:28:000.5[facility] HtcoaonSIZFMTNEDH4454-25-03 10:28:008.5 [facility] LwzfwgqJIPHTMYFFG8685-58-28 10:28:000.3[facility]annHEMATOLOGY 2011-08-21 10:28:0017.3[facility] YqbudqhNXYSXQRQKE8251-44-36 10:28:0073.4[facility] NuagcsaGFYKCQPFI8288-25-63 10:28:002.6[facility] LoiwkedJRHNDJGCI5170-53-58 10:28:001.8[facility] VyslzhzJTTICBJXE9820-53-84 10:28:003.7[facility] RBDVNPYHN2080-35-13 10:28:52174Bagpbdai NavzmabTANZIFVRH4120-32-34 10:28:000.6 [facility] HsxmijxHWPEGEJVC0697-31-41 10:28:0016[facility]annCHEMISTRY 2011-08-21 10:28:21217Tuvhkykd AppfjjmDLKSNRMRD8102-02-39 10:28:008.3[facility] XovqzwpUPATBXKMW0442-87-75 10:28:0019.7[facility] ScyksbdFZJQFMAKY6858-99-63 10:28:0099[facility] XdfsqzxPNMGQZLJV8025-47-65 10:28:0022[facility] GNVHAGEDNL7213-73-91 10:28:32749Byknjuyk SgmcjqmEXDUNIKXEW8925-24-51 10:28:00 12.0[facility] NnucpqyEDVJPWNQAX8789-09-29 10:28:007.3[facility]HEMATOLOGY 2011-08-21 10:28:0014.6[facility] TcabspcOTBWYHMVNA2559-78-62 10:28:0035.0[facility] HnqdtfePEEBXQFFVP4474-28-07 10:28:004.54[facility] OvendimIVSEVHTNEH4548-66-07 10:28:0037.6[facility] HbftsvoKWOGSQCWSC5382-95-55 10:28:0082.9[facility] EGRJAOMEUH3164-50-64 10:28:00 Test Item Value Reference Range Interpretation Comments MCH (test code = MCH) 29.0 pg 27.0-31.0 N [facility] EgawtzjTUCWRLBXHL2680-46-21 10:28:0013.2[facility] 2011-08-21 10:28:00Slight *ABN*(08/21/2011 04:28:00)[facility] 2011-08-21 10:28:00Slight (08/21/2011 04:28:00)[facility] 2011-08-21 10:28:000.0[facility] KeznvipMTKOLANAYD9561-30-75 10:28:00Slight (08/21/2011 04:28:00)[facility] MuralozRCDPFFPFXN3601-18-56 10:28:000.6[facility] KjftxtdWGJGBMJELQ7323-18-36 10:28:000.0[facility] TcpxwwtIGLJNPTZHD2664-42-98 10:28:005.3[facility] HsivnwqNNYNVFBQLF6900-65-99 10:28:001.3[facility] KGWEACNWPA3587-76-96 10:28:000.5[facility] EptdbhxPGSPYUCUYF0138-81-82 10:28:008.5 [facility] BpqzskkVANCWFNBYH9713-23-08 10:28:000.3[facility]annHEMATOLOGY 2011-08-21 10:28:0017.3[facility] GiquxqkJHJZFTGCJE6424-55-48 10:28:0073.4[facility] ZybnaiyPYJTFAECY6290-26-20 21:58:00Negative (08/19/2011 15:58:00)[facility] CvblhqtCQBSZULPV5705-76-84 21:58:75938Mjfhipda HhpsofcLFANBCSWI3042-29-30 21:58:0054[facility] HnqctktNBRAHVYLP7717-11-01 21:58:62532Steezntw [place] TDMEUAXIY9136-09-10 21:58:000.1[facility] VjlenjpDLBYIZAYG9666-43-18 21:58:000.9 [facility] DvmmiroBXKVYVPWH5728-60-54 21:58:004.4[facility]annCHEMISTRY 2011-08-19 21:58:008.8[facility] DewmdfmYVLTDZBWX9879-57-73 21:58:000.8[facility] YapihzfPKZKKWOWI0926-57-10 21:58:0036[facility] ZwjmhilAOXBQJREA5222-12-19 21:58:004.4[facility] EqyxkaqPHCEPZWFO6405-31-02 21:58:001.0[facility] CRYASKSFZC1170-62-49 21:58:00Occasional /HPF (08/19/2011 15:58:00)[facility] JtkoyizTZBXSSMSFT2526-64-60 21:58:003-5 /HPF *ABN*(08/19/2011 15:58:00)[facility] IrlpusbLVIJTGQZTA3270-41-26 21:58:003[facility] HhqnjzgPKOHCHFEAJ7232-74-80 21:58:00Few /LPF (08/19/2011 15:58:00)[facility] NwrbdogTKHGUFGPCI9577-38-89 21:58:00Occasional /HPF *ABN*(08/19/2011 15:58:00)[facility]annURINALYSIS 2011-08-19 21:58:000.2[facility] QcjsqdtODHWIPUADE1276-75-46 21:58:00Rare /LPF (08/19/2011 15:58:00)[facility] LyzfpqeNJGMTPWDWG2459-18-11 21:58:00Performed (08/19/2011 15:58:00)[facility] PmtskbcQLRBGVNRRD2516-68-55 21:58:00Negative (08/19/2011 15:58:00)[facility] QxzkjhhKUNFRWRWCD2177-59-65 21:58:00Negative (08/19/2011 15:58:00)[facility] YlaspktEIGCFZIUXZ4315-63-74 21:58:00 Test Item Value Reference Range Interpretation Comments UA pH (test code = UA pH) 5.5 1 5.0-8.0 N [facility] BglgkeaTQZGMQHYUN7490-48-61 21:58:00Trace *ABN*(08/19/2011 15:58:00) [facility] PugteicSGAJKPLWCJ7553-73-43 21:58:00Negative (08/19/2011 15:58:00) [facility] PihjjztSOCZWQMKQJ9727-99-87 21:58:0080 mg/dL *ABN*(08/19/2011 15:58:00) [facility] ZhgtmdfGNKSMXJQOX3338-26-36 21:58:00>=1000 mg/dL *ABN*(08/19/2011 15:58:00)[facility] GtbhrzdLUXVVCJDRP8123-93-48 21:58:00Negative (08/19/2011 15:58:00)[facility] LcgldhkWMMZEFGOEK7732-17-52 21:58:00Slight Cloudy (08/19/2011 15:58:00)[facility] SjtdppyBZNKRRARQF0274-26-40 21:58:00 Test Item Value Reference Range Interpretation Comments UA Spec Grav (test code = UA Spec 1.025 1 Grav) [facility] WmoqunoCGPBKVQNSJ4740-44-24 21:58:00Yellow (08/19/2011 15:58:00) [facility] EcjfzjgHYVICFUBK0273-35-53 21:58:00Negative (08/19/2011 15:58:00) [facility] TpruulzCHJKHBDUV9500-77-54 21:58:71977Sfjeldmd HermannCHEMISTRY 2011-08-19 21:58:0054[facility] BbhbwdyMNNXMBODY2268-60-83 21:58:29706Xscgmgwe ZjqbesnCIQMYCSWY9384-93-51 21:58:000.1[facility] FuldzixVVSIOVSHP9798-83-35 21:58:000.9[facility] PlxaqvoHFPCRJTZU7153-91-69 21:58:004.4[facility] HCERAAPVH9104-92-86 21:58:008.8[facility] JhrirqxFPTECVJWR6560-48-85 21:58:000.8 [facility] BqyaqiaVEYGBDVXT3878-63-99 21:58:0036[facility]annCHEMISTRY 2011-08-19 21:58:004.4[facility] IvnclgdKPRIAESMF4903-58-25 21:58:001.0[facility] SwkslwpQAAKQFDJBL1516-64-31 21:58:00Occasional /HPF (08/19/2011 15:58:00) [facility] WlkmyosARLYHLJKGR6318-62-63 21:58:003-5 /HPF *ABN*(08/19/2011 15:58:00) [facility] XwabtioYJRXJPLJJD1996-57-35 21:58:003[facility]annURINALYSIS 2011-08-19 21:58:00Few /LPF (08/19/2011 15:58:00)[facility]UR[facility]IS 2011-08-19 21:58:00Occasional /HPF *ABN*(08/19/2011 15:58:00)[facility] HPJEWMMCRP5307-32-56 21:58:000.2[facility] JxjvhwfZAVFJGIJNB9845-62-74 21:58:00 Rare /LPF (08/19/2011 15:58:00)[facility] KrjlptwIIDWUZVERR4017-57-79 21:58:00 Performed (08/19/2011 15:58:00)[facility] HodbjcpWMQSZDLQHM3577-15-18 21:58:00 Negative (08/19/2011 15:58:00)[facility] WxrjdbwJASDKIERQG9864-96-53 21:58:00 Negative (08/19/2011 15:58:00)[facility]vzvxcwKETYHBWSNG3736-98-41 21:58:00 Test Item Value Reference Range Interpretation Comments UA pH (test code = UA pH) 5.5 1 5.0-8.0 N [facility] PcjfgdtXUJDOLCXCX0590-01-74 21:58:00Trace *ABN*(08/19/2011 15:58:00) [facility] HxlavckVXWQYLCLIH0890-04-43 21:58:00Negative (08/19/2011 15:58:00) [facility]XrllmdlYWAJWRXBRM3106-56-01 21:58:0080 mg/dL *ABN*(08/19/2011 15:58:00) [facility]PmolotbDFWYZPNCUC2511-34-68 21:58:00>=1000 mg/dL *ABN*(08/19/2011 15:58:00)[facility] NrkkvmbKGXBFRDYIL0938-68-13 21:58:00Negative (08/19/2011 15:58:00)[facility] OlpykeuGVTSGNINUJ9083-29-18 21:58:00Slight Cloudy (08/19/2011 15:58:00)[facility] QqpkeisBWLFPFOAWV3598-65-98 21:58:00 Test Item Value Reference Range Interpretation Comments UA Spec Grav (test code = UA Spec 1.025 1 Grav) [facility] YlnksmlGXMGIPEBIP0561-15-48 21:58:00Yellow (08/19/2011 15:58:00) [facility] EhijgyzCAUTUVYLT7509-08-20 21:58:00Negative (08/19/2011 15:58:00) [facility] XwsifprAHWNCQAHV6549-56-73 21:58:25712Zltzpqzj HermannCHEMISTRY 2011-08-19 21:58:0054[facility] GskljkhLJIWOYLHH4488-14-79 21:58:36132Dnhzmfgt VtkpjtyBEWBQUERM2054-70-70 21:58:000.1[facility] IlplsahZYEJKHGES3171-48-63 21:58:000.9[facility] IcqkeefNQLJSXWNJ4780-11-79 21:58:004.4[facility] RRWUJUMKF4863-02-55 21:58:008.8[facility] NezgyrnKIEJIFAHP4062-92-26 21:58:000.8 [facility] ItbxevaARTVRPVGO9426-92-87 21:58:0036[facility] HermannCHEMISTRY 2011-08-19 21:58:004.4[facility] VgzntbsXZKLSBASP7749-45-61 21:58:001.0[facility] WxrizwgMHQNPRVAGU6683-39-04 21:58:00Occasional /HPF (08/19/2011 15:58:00) [facility] ZxlbhyaXGLQHIAHNK2946-65-00 21:58:003-5 /HPF *ABN*(08/19/2011 15:58:00) [facility] FltqptcFLAZEAGSCD0973-39-54 21:58:003[facility] HermannURINALYSIS 2011-08-19 21:58:00Few /LPF (08/19/2011 15:58:00)[facility] 21:58:00Occasional /HPF *ABN*(08/19/2011 15:58:00)[facility] DBSVBOGNPW3580-65-30 21:58:000.2[facility] DlvlbkcMAWVZCCWTF6702-42-58 21:58:00 Rare /LPF (08/19/2011 15:58:00)[facility]neUqimnogHBERQHUICF6994-30-50 21:58:00 Performed (08/19/2011 15:58:00)[facility]neMnkdodtSSMWMMAJNA1432-39-41 21:58:00 Negative (08/19/2011 15:58:00)[facility]neWkrsjehICKRRPKPXN7686-77-22 21:58:00 Negative (08/19/2011 15:58:00)[facility]neEgkpcblRBPYEVOIIZ7004-82-02 21:58:00 Test Item Value Reference Range Interpretation Comments UA pH (test code = UA pH) 5.5 1 5.0-8.0 N [facility]neThllqjiEIPQXFPQTU0236-62-01 21:58:00Trace *ABN*(08/19/2011 15:58:00) [facility]neXxxkuppXAEVZWPGGZ4647-68-97 21:58:00Negative (08/19/2011 15:58:00) [facility]UsrrkegHIPUXNLVDS2664-05-45 21:58:0080 mg/dL *ABN*(08/19/2011 15:58:00) [facility]neOcnqkzmXZBTZAYRZP9269-61-56 21:58:00>=1000 mg/dL *ABN*(08/19/2011 15:58:00)[facility]neWgwidutTFNRUMWSQA5029-83-71 21:58:00Negative (08/19/2011 15:58:00)[facility]neYykelmxOQCOMSJHVE9347-37-14 21:58:00Slight Cloudy (08/19/2011 15:58:00)[facility]neCsgdwbxATXRZPDOGA9117-00-23 21:58:00 Test Item Value Reference Range Interpretation Comments UA Spec Grav (test code = UA Spec 1.025 1 Grav) [facility]neAxolalrVRLBIVNBYY0351-98-52 21:58:00Yellow (08/19/2011 15:58:00) [facility] TwhcbcrXOJXRIQRE2441-49-85 21:58:00Negative (08/19/2011 15:58:00) [facility] EjucoogOOSVUWQHX2324-05-91 21:58:98272Jryhfhgc HermannCHEMISTRY 2011-08-19 21:58:0054[facility] HrmnzpjZVZHQECIL5387-31-89 21:58:29573Uwmmxdmu CvsuntsXEKHLKHFZ0828-45-45 21:58:000.1[facility] TwktyrbBBDQMQLFG3713-87-10 21:58:000.9[facility] WnlcznqBMSRHUDLJ6140-09-79 21:58:004.4[facility] ACLKQIUUH2282-58-10 21:58:008.8[facility] IcnmvrbBPPLJMIJK7726-35-13 21:58:000.8 [facility] PdbhpqyCDVUDBYLX3490-82-58 21:58:0036[facility] HermannCHEMISTRY 2011-08-19 21:58:004.4[facility] UdzcrfyOCMHNMENX5861-46-92 21:58:001.0[facility] SiiqaifKADKMNTBKE8156-60-06 21:58:00Occasional /HPF (08/19/2011 15:58:00) [facility] RjjbmbhGXKFFINBPW3760-33-54 21:58:003-5 /HPF *ABN*(08/19/2011 15:58:00) [facility] SmliullTFHOLBFXQW2491-41-22 21:58:003[facility] HermannURINALYSIS 2011-08-19 21:58:00Few /LPF (08/19/2011 15:58:00)[facility] HermannURINALYSIS 2011-08-19 21:58:00Occasional /HPF *ABN*(08/19/2011 15:58:00)[facility] Vin OXHZZKZXWN4967-15-18 21:58:000.2[facility] YgwmiijYEESYXIWPI1521-56-46 21:58:00 Rare /LPF (08/19/2011 15:58:00)[facility] RolmouhYRDQMBFXCF0097-96-36 21:58:00 Performed (08/19/2011 15:58:00)[facility] VxooshzIRKTTGZKFG0932-03-60 21:58:00 Negative (08/19/2011 15:58:00)[facility] KjwabahMRZKVUMMBW9012-40-55 21:58:00 Negative (08/19/2011 15:58:00)[facility] WakffzgJTLMMLYDMW5300-62-40 21:58:00 Test Item Value Reference Range Interpretation Comments UA pH (test code = UA pH) 5.5 1 5.0-8.0 N [facility] ZuxslfjYUOHNRBQJK5259-34-95 21:58:00Trace *ABN*(08/19/2011 15:58:00) [facility] KxhbjdbPBVKOIXDVE0194-48-29 21:58:00Negative (08/19/2011 15:58:00) [facility] CveebumIWALKSENGI8937-63-41 21:58:0080 mg/dL *ABN*(08/19/2011 15:58:00) [facility]neGjqtkdmQXYJBHNCHM2802-24-83 21:58:00>=1000 mg/dL *ABN*(08/19/2011 15:58:00)[facility] RxpsfleOPPLBQWJTE3856-55-67 21:58:00Negative (08/19/2011 15:58:00)[facility] YqtjetdMELQNBVRZL9729-66-58 21:58:00Slight Cloudy (08/19/2011 15:58:00)[facility] JjckefhZUNNBJUIBS9939-77-19 21:58:00 Test Item Value Reference Range Interpretation Comments UA Spec Grav (test code = UA Spec 1.025 1 Grav) [facility] SoenrinESGNYFIRXU6501-67-10 21:58:00Yellow (08/19/2011 15:58:00) [facility] PbwwqtnCYXHQLUEB5980-17-64 21:58:00Negative (08/19/2011 15:58:00) [facility] UiljqokMKQHQECGP1353-19-00 21:58:32099Tlixjiux HermannCHEMISTRY 2011-08-19 21:58:0054[facility] SivgsbhALLFFSCPK8023-49-34 21:58:83855Fmgfcjct ChfihfmWYRVULYGA5917-38-66 21:58:000.1[facility] KgmgglsPJOYXJQEK2609-94-05 21:58:000.9[facility] GgiwdwuGLIRRCVHK0326-94-30 21:58:004.4[facility] Vin PLWTQFHKQ4350-76-67 21:58:008.8[facility] SagcoppZCKBTJJZW3087-63-19 21:58:000.8 [facility] QmrtqmfDPWSCJREL6916-66-02 21:58:0036[facility] HermannCHEMISTRY 2011-08-19 21:58:004.4[facility] WdendgjLCPCZTCQC2629-41-38 21:58:001.0[facility] RzkavmvQZJKGDADYF1615-20-36 21:58:00Occasional /HPF (08/19/2011 15:58:00) [facility] MqrgbmkLGBAECVQNC5850-32-35 21:58:003-5 /HPF *ABN*(08/19/2011 15:58:00) [facility] WfeinxjAYEWRVGHAO2470-59-86 21:58:003[facility] HermannURINALYSIS 2011-08-19 21:58:00Few /LPF (08/19/2011 15:58:00)[facility] HermannURINALYSIS 2011-08-19 21:58:00Occasional /HPF *ABN*(08/19/2011 15:58:00)[facility] [place] FKJVUDEKAN9227-63-84 21:58:000.2[facility] NcxdafjVHYZMZCEDR1763-49-33 21:58:00 Rare /LPF (08/19/2011 15:58:00)[facility] WrdbbsgBILYCQNRBT1396-66-80 21:58:00 Performed (08/19/2011 15:58:00)[facility] TfmzuvjDRRXLFKTCT8453-65-34 21:58:00 Negative (08/19/2011 15:58:00)[facility] UdtbiwhZDFWCUMHLJ3893-30-88 21:58:00 Negative (08/19/2011 15:58:00)[facility] MxxdgohUWQZLMGZYI7828-12-96 21:58:00 Test Item Value Reference Range Interpretation Comments UA pH (test code = UA pH) 5.5 1 5.0-8.0 N [facility] HjqcwuqDWMCEQATJL7506-47-70 21:58:00Trace *ABN*(08/19/2011 15:58:00) [facility] UskaatmCLJQBLSQSI3803-61-32 21:58:00Negative (08/19/2011 15:58:00) [facility] EyhokgkMIKKQKJJWQ8284-81-33 21:58:0080 mg/dL *ABN*(08/19/2011 15:58:00) [facility] XtppdpgADYCBGCPTX9961-40-47 21:58:00>=1000 mg/dL *ABN*(08/19/2011 15:58:00)[facility] XyqxcyqHGZHPQYOPT0696-30-70 21:58:00Negative (08/19/2011 15:58:00)[facility] QjjskxpPUIPUBBGZR6051-31-57 21:58:00Slight Cloudy (08/19/2011 15:58:00)[facility] UqhtbapLQPEPGWJPK4674-73-41 21:58:00 Test Item Value Reference Range Interpretation Comments UA Spec Grav (test code = UA Spec 1.025 1 Grav) [facility] UkenmhdITHVWFELKC9729-04-10 21:58:00Yellow (08/19/2011 15:58:00) [facility] NqlerjrGEEXSBAKP1613-87-56 21:58:00Negative (08/19/2011 15:58:00) [facility] TzdqdorGYTSEXUOI5989-91-77 21:58:89764Zsrlcdzc HermannCHEMISTRY 2011-08-19 21:58:0054[facility] FgzdngyHQKEEIOBM3438-51-52 21:58:45535Xauisbgw TwhnbqmIRMGSCMQY8149-65-99 21:58:000.1[facility] PapughpMITKQIOLV2866-33-93 21:58:000.9[facility] PxsipumBRTANZWER3509-15-80 21:58:004.4[facility] SZANTCUMB4890-05-17 21:58:008.8[facility] AneuqxzRFQPTKQSN7994-05-42 21:58:000.8 [facility] YyhmiyiRGSCGEIPB1713-83-27 21:58:0036[facility] HermannCHEMISTRY 2011-08-19 21:58:004.4[facility] AfbbrmwUIFQJDMGS2994-64-66 21:58:001.0[facility] VlqzbhbRURNFPTFHC4879-99-18 21:58:00Occasional /HPF (08/19/2011 15:58:00) [facility] MtwgsdxVMNEANTPUH8878-63-62 21:58:003-5 /HPF *ABN*(08/19/2011 15:58:00) [facility] ZwpwxegXINQUPYWAR7790-92-67 21:58:003[facility] HermannURINALYSIS 2011-08-19 21:58:00Few /LPF (08/19/2011 15:58:00)[facility] HermannURINALYSIS 2011-08-19 21:58:00Occasional /HPF *ABN*(08/19/2011 15:58:00)[facility] IUSQCCPZXE4707-27-68 21:58:000.2[facility] JwsikyyUHZIOWUFBZ4686-86-23 21:58:00 Rare /LPF (08/19/2011 15:58:00)[facility] IcdwyavNZKGSICCQN5825-06-52 21:58:00 Performed (08/19/2011 15:58:00)[facility] YftgyrrQOMMCQWTAE2910-60-33 21:58:00 Negative (08/19/2011 15:58:00)[facility] LbztlmlEEEWPYLDJR6793-89-84 21:58:00 Negative (08/19/2011 15:58:00)[facility]hpsdacXGJFZSOANT2013-60-56 21:58:00 Test Item Value Reference Range Interpretation Comments UA pH (test code = UA pH) 5.5 1 5.0-8.0 N [facility] NjlaaurCVPPDIEKNO6395-28-08 21:58:00Trace *ABN*(08/19/2011 15:58:00) [facility] TdyeqikJRCNIEMUTN4191-45-23 21:58:00Negative (08/19/2011 15:58:00) [facility]tsfputKTMUSCBQXZ6996-25-04 21:58:0080 mg/dL *ABN*(08/19/2011 15:58:00) [facility]neVmaluhaXOOFQNGPFU2434-37-59 21:58:00>=1000 mg/dL *ABN*(08/19/2011 15:58:00)[facility]YyycjfoZMIKCYHBEC8763-20-55 21:58:00Negative (08/19/2011 15:58:00)[facility] ReuvttvHUONXYYLIW4279-26-01 21:58:00Slight Cloudy (08/19/2011 15:58:00)[facility] DstvlfgVXASWOAWBR5798-34-55 21:58:00 Test Item Value Reference Range Interpretation Comments UA Spec Grav (test code = UA Spec 1.025 1 Grav) [facility] FloogxeKYLMDGTTTH1462-92-57 21:58:00Yellow (08/19/2011 15:58:00) [facility] HccnszdSRSBYWBUJ4910-47-70 21:13:0023[facility] HermannCHEMISTRY 2011-08-19 21:13:001.0[facility] XvxlattSQBEXDPAQ1179-37-78 21:13:54443Mukwlhii KqyrlxkIUSHHFJFQ7525-86-86 21:13:0056[facility] WttdozkKNVKKELOK7593-59-48 21:13:009.0[facility] CnwdpizXFVIFWJPN6971-44-89 21:13:004.8[facility] WOXGLGNBQ3880-75-77 21:13:004.2[facility] MtaldtaTTASAGCMA9413-38-52 21:13:001.1 [facility] HzkcajbQBPHAAEFY7882-72-80 21:13:0030[facility] HermannHEMATOLOGY 2011-08-19 21:13:00Normal (08/19/2011 15:13:00)[facility] HermannHEMATOLOGY 2011-08-19 21:13:00Slight *ABN*(08/19/2011 15:13:00)[facility] HermannHEMATOLOGY 2011-08-19 21:13:000.0[facility] XwqwhmfIOBQWZCFQH4422-01-97 21:13:000.0[facility] SbaxgmuMRUTPSWAN2653-28-56 21:13:0023[facility] HegjxhfLFIXPLXVP8773-02-15 21:13:001.0[facility] CazqgdgLWYKFYVRQ0926-93-04 21:13:22168Wpookrsz Vin RJGPXYSVR5316-71-05 21:13:0056[facility] EusxycaJLVOSMKXT9123-38-52 21:13:009.0 [facility] FpmqoqwONMXAQMFD3257-52-59 21:13:004.8[facility] HermannCHEMISTRY 2011-08-19 21:13:004.2[facility] IbltwukQOXXNEMFN1185-39-98 21:13:001.1[facility] CwgkdmkHSIAZLAQD7424-21-15 21:13:0030[facility] XtnoegxHHZFJJDUPR4660-28-15 21:13:00Normal (08/19/2011 15:13:00)[facility] GmypgiwUZOABSXIYH4665-49-29 21:13:00Slight *ABN*(08/19/2011 15:13:00)[facility] CvufmqxDXPQZAXLMC3183-32-84 21:13:000.0[facility] MnlaudxUDIHLQWDDI0282-68-75 21:13:000.0[facility] LUKYEGSYW2302-33-79 21:13:0023[facility] VvzvjfkSAWNBDJVM1626-86-37 21:13:001.0 [facility] RduqcjdKGMSUNFAX8347-86-04 21:13:23238Xvxmkijs HermannCHEMISTRY 2011-08-19 21:13:0056[facility] HvcehkxJPZNHGPYT2876-25-30 21:13:009.0[facility] KczlpbsKTBAOFTSW9263-25-61 21:13:004.8[facility] TxfhizvPRPFJBMNL3144-14-54 21:13:004.2[facility] QvnkvdzBIQCSBQUQ5577-71-62 21:13:001.1[facility] Vin GVWKFYRIK0610-74-41 21:13:0030[facility] EvmktwkUXILSZLGLG8475-02-79 21:13:00 Normal (08/19/2011 15:13:00)[facility] QtoyjwjOLROQTXIVS2473-73-09 21:13:00Slight *ABN*(08/19/2011 15:13:00)[facility] XbwactmZSUNPVJDVV1127-25-32 21:13:000.0 [facility] NigzgqmCKXZEMPJOO0251-76-31 21:13:000.0[facility] HermannCHEMISTRY 2011-08-19 21:13:0023[facility] RsdclsiHZMVVFIFY3962-78-47 21:13:001.0[facility] AbjixxgJQKAMXFWQ5659-08-10 21:13:62472Inhbojoa WprwopfLZNHMKQLO2888-40-33 21:13:0056[facility] TxbfdwbAIZZDCJUL4428-00-15 21:13:009.0[facility] FHOIZIYUP2446-58-14 21:13:004.8[facility] KdhqajxXKHQOYEAT4807-63-71 21:13:004.2 [facility] NfxagioQGWXLTRFZ1553-84-91 21:13:001.1[facility] HermannCHEMISTRY 2011-08-19 21:13:0030[facility] BosixypGOIIHNPXOR2828-93-57 21:13:00Normal (08/19/2011 15:13:00)[facility] AjlclpfSWUPJQAZOZ9954-04-83 21:13:00Slight *ABN*(08/19/2011 15:13:00)[facility] PlptbnoXKPGYCVYJI4562-09-48 21:13:000.0 [facility] YjqycorMFFDIZKXBJ2743-40-06 21:13:000.0[facility] HermannCHEMISTRY 2011-08-19 21:13:0023[facility] AtbrfnaPGAKDUGKK7512-21-64 21:13:001.0[facility] WfjxhrjDZSATBFMB9808-85-74 21:13:18793Coxsucsd LalxkorUFHIHSHXU2792-71-80 21:13:0056[facility] CrlzkoxNUWTAYNEN9433-59-11 21:13:009.0[facility] Vin YUBYHBYOW4426-72-50 21:13:004.8[facility] CgyzgtiCOCRSLBOE3469-52-96 21:13:004.2 [facility] CtyvvetHISPVKGWK3350-38-08 21:13:001.1[facility] HermannCHEMISTRY 2011-08-19 21:13:0030[facility] BqqxauuVIPRSEFRBE7395-37-62 21:13:00Normal (08/19/2011 15:13:00)[facility] CnhznjvEULVPUFFVV3417-53-71 21:13:00Slight *ABN*(08/19/2011 15:13:00)[facility] IomxnwpAYEJJEWSUF2335-56-19 21:13:000.0 [facility] IhghplgPLXBBJGCAV7175-36-90 21:13:000.0[facility] HermannCHEMISTRY 2011-08-19 21:13:0023[facility] TvjhhgcRNCBLSLQU7403-65-44 21:13:001.0[facility] PzhdwlhBHEDJYBOA2938-79-95 21:13:27016Azyudggl HdwuoexNXWRQXEVT2915-35-17 21:13:0056[facility] NsuwfanWHDTJXVNK8760-79-72 21:13:009.0[facility] KFBAIIVNA8060-20-05 21:13:004.8[facility] HulpqxvTKYMUELMC7644-19-26 21:13:004.2 [facility] FlaudqaXPVSFAVSB9307-73-25 21:13:001.1[facility] HermannCHEMISTRY 2011-08-19 21:13:0030[facility] KamibsyCMFKZGEAAX4222-77-02 21:13:00Normal (08/19/2011 15:13:00)[facility] VadtybbCOXLZWKRRI5957-54-48 21:13:00Slight *ABN*(08/19/2011 15:13:00)[facility] FycxxizTNXJNHDYAF9829-46-37 21:13:000.0 [facility] BkfjsioXFPWUWLQUO1320-60-54 21:13:000.0[facility] HermannCHEMISTRY 2011-08-19 21:10:0074.0[facility] EmlkwdnECYJKYXWL3275-43-38 21:10:0037.0[facility] GoasiwsJZWMDADVS1040-80-41 21:10:0042[facility] TubpluoYMIDMODVC2166-14-27 21:10:0017.3[facility] ErvxkvrLXQGJODVY9233-86-27 21:10:007.34[facility] Vin TEFKRKYPK3508-33-67 21:10:0032[facility] UzmxoscSTJOAFADK3536-82-63 21:10:00-7 [facility] MchujkuYMQNFNPKH0768-54-68 21:10:0074.0[facility] HermannCHEMISTRY 2011-08-19 21:10:0037.0[facility] JzmshjeRJGGRXQPX0329-49-01 21:10:0042[facility] UujlkokXNIBVZTWG9876-21-12 21:10:0017.3[facility] QruooywFUQWJSDLJ9052-29-01 21:10:007.34[facility] SwrnsseSARVIIYIR7467-68-99 21:10:0032[facility] WNRUFITFQ4106-84-03 21:10:00-7[facility] UejmhekYRIFELTKF3032-58-00 21:10:0074.0 [facility] AusdmzbEWKMNWTUB5035-63-91 21:10:0037.0[facility] HermannCHEMISTRY 2011-08-19 21:10:0042[facility] WcboksySAZTBPBJX8827-61-30 21:10:0017.3[facility] PhgtextENVUVQTAU2680-69-94 21:10:007.34[facility] FgdvtzhAEZSEYYQT4530-90-07 21:10:0032[facility] BwzmgmfKNQTDIDPB5353-31-45 21:10:00-7[facility] Vin LQUZKLFVR1401-94-40 21:10:0074.0[facility] ZrfetpjQAQCEXBMZ3681-34-17 21:10:0037.0 [facility] EfncayuLNQBWVRPR5579-47-65 21:10:0042[facility] HermannCHEMISTRY 2011-08-19 21:10:0017.3[facility] QmysdoxYUUEVGGXV5808-15-54 21:10:007.34[facility] GvmkzqqLSAPQPXLR1703-29-80 21:10:0032[facility] MqpsylbCRGGIMIMI8777-92-76 21:10:00-7[facility] MoffregFTMSOUUZT3928-58-46 21:10:0074.0[facility] KUZQETSHY6093-03-83 21:10:0037.0[facility] EhlqebwSJVABIHGH0180-06-91 21:10:0042 [facility] OgvffprNYJZIFCJV0584-99-69 21:10:0017.3[facility] HermannCHEMISTRY 2011-08-19 21:10:007.34[facility] JldirteCQRKOUPAM0145-05-79 21:10:0032[facility] PntfvxuOKUMJDLZC3539-61-66 21:10:00-7[facility] UckfayuOMYPEJSXK5928-45-13 21:10:0074.0[facility] DrqokdcXEAQHVLEX7189-40-65 21:10:0037.0[facility] Vin YLIWVJDWC2722-64-91 21:10:0042[facility] AeccbnfEQFSIIBYU5171-60-92 21:10:0017.3 [facility] TxabhbdGFNQWJWJW2253-11-69 21:10:007.34[facility] HermannCHEMISTRY 2011-08-19 21:10:0032[facility] JcxfsurETDFLRLEJ0198-85-29 21:10:00-7[facility] VwhsatuNGAMKFLHAU2511-58-30 20:34:00Negative *NA*(08/19/2011 14:34:00)[facility] NqugnsnEIEONUZRLH3842-12-25 20:34:00Negative *NA*(08/19/2011 14:34:00)[facility] PmjvkqaIVMMOCJZBL8703-93-17 20:34:00Negative *NA*(08/19/2011 14:34:00)[facility] HbkyljsDBWAOIHWHU6013-50-15 20:34:00Negative *NA*(08/19/2011 14:34:00)[facility] RmzvvwtSPUSJCDDYN6932-39-98 20:34:00Negative *NA*(08/19/2011 14:34:00)[facility] XysgapkQGZESZGOGO5149-71-98 20:34:00Negative *NA*(08/19/2011 14:34:00)[facility] [place]
[2021-05-13] MEDS ORDERED: METOCLOPRAMIDE 10 MG/2mL INJ ONE (21:22)
[2021-05-13] MEDS ORDERED: MEPERIDINE HCL 50 MG/ML ONE (21:22)
--- NOTE | 2021-05-13 22:18 | ER ---
Nurse's Notes [facility] Name: Cathi Zaldivar Age: 40 yrs Sex: Female : 1980 Arrival Date: 05/13/2021 Time: 20:14 Bed 18 Private MD: Diagnosis: Gastroparesis Presentation: 05/13 20:26 Chief complaint: Patient states: abd pain, nausea and diarrhea that began 4 days ago. ss Pt is unsure whether or not it's her gastroparesis flaring up or not. Coronavirus screen: Client denies travel out of the [place] in the last 14 days. Ebola Screen: Patient denies exposure to infectious person. Patient denies travel to an Ebola-affected area in the 21 days before illness onset. Initial Sepsis Screen: Does the patient meet any 2 criteria? No. Patient's initial sepsis screen is negative. Does the patient have a suspected source of infection? No. Patient's initial sepsis screen is negative. Risk Assessment: Do you want to hurt yourself or someone else? Patient reports no desire to harm self or others. Onset of symptoms was May 09, 2021. 20:26 Method Of Arrival: Ambulatory ss 20:26 Acuity: JESSICA 2 ss Triage Assessment: 20:23 General: Appears distressed, uncomfortable, Behavior is cooperative, crying. Pain: cc4 Complains of pain in epigastric area Pain does not radiate. Pain currently is 10 out of 10 on a pain scale. Quality of pain is described as crampy, sharp, Pain began 1 hour ago. Is continuous, Alleviated by nothing. EENT: No signs and/or symptoms were reported regarding the EENT system. Neuro: No deficits noted. Level of Consciousness is awake, alert, obeys commands, Oriented to person, place, time, situation. Cardiovascular: Denies chest pain. Respiratory: No deficits noted. Airway is patent Respiratory effort is even, unlabored, Respiratory pattern is regular, symmetrical. GI: Reports upper abdominal pain, epigastric pain, Reports h/o gastroparesis \\T\\ IBS. GI: Reports diarrhea. : No signs and/or symptoms were reported regarding the genitourinary system. Derm: Skin is intact, AV fistula noted right upper arm with + thrill; TDC noted intact right subclavian with dsg CDI; reports receiving iHD on MWF. Musculoskeletal: No deficits noted. Capillary refill < 3 seconds, Range of motion: intact in all extremities. 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 - control method cc4 Historical: - Allergies: 20:28 ambien; ss 20:28 Codeine; ss 20:28 GUAIFENESIN; ss 20:28 Ibuprofen; ss 20:28 Lisinopril; ss 20:28 Morphine; ss 20:28 Nitrofurantoin Macrocrystal; ss 20:28 PENICILLINS; ss 20:28 Prolixin; ss 20:28 zolpidem tartrate; ss - PMHx: 20:28 "mental problems"; CHF; HD-TTHSat; Hypertension; liver failure; PERIPHERAL NEUROPATHY; ss Seizures; ibs; Gastroparesis; ENCEPHALOPATHY; Dialysis; m-w-f; Diabetes - NIDDM; cyclic vomiting syndrome; covid 19; chronic kidney disease; pseudo aneurysm R groin; - PSHx: 20:28 section; eye removed; dialysis catheter R chest wall; ss - Immunization history:: Client reports having NOT received the Covid vaccine. - Social history:: Smoking status: Patient reports the use of cigarette tobacco products, 2 cigarettes/ day. Screenin:23 Abuse screen: Denies threats or abuse. Nutritional screening: No deficits noted. cc4 Tuberculosis screening: No symptoms or risk factors identified. Fall Risk None identified. Assessment: 20:23 Reassessment: See triage assessment; DHEERAJ Leon in to see. cc4 20:23 GI: Abd is soft X 4 quads Abd is non tender X 4 quads. cc4 20:23 GI: Bowel sounds present X 4 quads. cc4 21:25 Reassessment: Unable to start IV with medications given IM as ordered for c/o upper bb abd. pain \\T\\ nausea; no vomiting noted. 21:30 Reassessment: Patient appears in no apparent distress at this time. Cessation of crying.cc4 22:00 Reassessment: Patient appears in no apparent distress at this time. Reports decreasing cc4 epigastric pain to 6/10 on pain scale; reports relief of nausea. Vital Signs: 20:26 BP 232 / 119; Pulse 85; Resp 20; Temp 97.9(O); Pulse Ox 100% on R/A; Weight 73.48 kg; ss Height 5 ft. 1 in. (154.94 cm); Pain 10/10; 20:29 BP 230 / 102; Pulse 80; Resp 21; Temp 96.6; Pulse Ox 100% ; cs9 21:25 BP 192 / 83; Pulse 80; Resp 20; Temp 96.6; Pulse Ox 100% on R/A; bb 20:26 Body Mass Index 30.61 (73.48 kg, 154.94 cm) ED Course: 20:14 Patient arrived in ED. bp1 20:23 Patient has correct armband on for positive identification. Bed in low position. Call cc4 light in reach. Side rails up X 1. gambling monitor on. Pulse ox on. NIBP on. 20:24 Hermilo Carpio PA is PHCP. jr8 20:24 Luis Sandra MD is Attending Physician. jr8 20:28 Triage completed. 20:28 Arm band placed on right wrist. 20:34 Svetlana Long, TABATHA is Primary Nurse. sl2 22:30 No provider procedures requiring assistance completed. cc4 22:30 Patient did not have IV access during this emergency room visit. cc4 Administered Medications: 21:25 Drug: Reglan (metoCLOPramide) 10 mg Route: IM; Site: left gluteus; bb 22:00 Follow up: Response: No adverse reaction; Nausea is decreased cc4 21:25 Drug: Demerol (meperidine) 50 mg Route: IM; Site: right gluteus; bb 22:00 Follow up: Response: No adverse reaction; Pain is decreased cc4 Outcome: 22:18 Discharge ordered by . jr8 22:30 Discharged to home ambulatory. cc4 22:30 Condition: improved 22:30 Discharge instructions given to patient, Instructed on discharge instructions, follow up and referral plans. medication usage, Demonstrated understanding of instructions, follow-up care, medications. 22:34 Patient left the ED. bb Signatures: Hawa Bustillos RN RN bb Shannan Lynch RN RN Hermilo Carpio PA PA jr8 Mylene Banerjee bp1 Saranya Jarrett RN RN cc4 Josefina Sidhu 9 Svetlana Long, TABATHA RN sl2 Corrections: (The following items were deleted from the chart) 20:31 20:26 BP 232 / 119; Pulse 85bpm; Resp 20bpm; Pulse Ox 100% RA; Temp 97.9F Oral; 73.48 ss kg; Height 5 ft. 1 in.; BMI: 30.6; Pain 03/30; ss 05/14 00:29 00:20 GI: cc4 cc4
--- NOTE | 2021-05-13 22:18 | EDPHYS ---
Physician Documentation [facility] Name: Cathi Zaldivar Age: 40 yrs Sex: Female : 1980 Arrival Date: 05/13/2021 Time: 20:14 Bed 18 Private MD: DWIGHT Physician Luis Sandra HPI: 05/13 22:02 This 40 yrs old Female presents to ER via Ambulatory with complaints of jr8 Abdominal Pain. 22:02 The symptoms do not radiate. The symptoms are described as stabbing. Modifying factors: jr8 The symptoms are alleviated by nothing, the symptoms are aggravated by nothing. Severity of pain: At its worst the pain was moderate in the emergency department the pain is unchanged. The patient has experienced similar episodes in the past, several times. The patient has not recently seen a physician. This is a 40-year-old female patient that presented to the emergency room with complaints of upper abdominal pain. Patient has a history of gastroparesis. Patient stated that she is having another flareup of her gastroparesis. Started acutely today and has not been able to control the pain or nausea. Denies fevers, vomiting, diarrhea.. 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 - control method cc4 Historical: - Allergies: 20:28 ambien; ss 20:28 Codeine; ss 20:28 GUAIFENESIN; ss 20:28 Ibuprofen; ss 20:28 Lisinopril; ss 20:28 Morphine; ss 20:28 Nitrofurantoin Macrocrystal; ss 20:28 PENICILLINS; ss 20:28 Prolixin; ss 20:28 zolpidem tartrate; ss - PMHx: 20:28 "mental problems"; CHF; HD-TTHSat; Hypertension; liver failure; PERIPHERAL NEUROPATHY; ss Seizures; ibs; Gastroparesis; ENCEPHALOPATHY; Dialysis; m-w-f; Diabetes - NIDDM; cyclic vomiting syndrome; covid 19; chronic kidney disease; pseudo aneurysm R groin; - PSHx: 20:28 section; eye removed; dialysis catheter R chest wall; ss - Immunization history:: Client reports having NOT received the Covid vaccine. - Social history:: Smoking status: Patient reports the use of cigarette tobacco products, 2 cigarettes/ day. ROS: 22:02 Eyes: Negative for injury, pain, redness, and discharge, ENT: Negative for injury, jr8 pain, and discharge, Neck: Negative for injury, pain, and swelling, Cardiovascular: Negative for chest pain, palpitations, and edema, Respiratory: Negative for shortness of breath, cough, wheezing, and pleuritic chest pain, Back: Negative for injury and pain, MS/Extremity: Negative for injury and deformity, Skin: Negative for injury, rash, and discoloration, Neuro: Negative for headache, weakness, numbness, tingling, and seizure. 22:02 Abdomen/GI: Positive for abdominal pain, nausea, Negative for vomiting, diarrhea, hematemesis, black/tarry stool, rectal pain, rectal bleeding, bowel incontinence, flatulence. Exam: 22:02 Cardiovascular: Regular rate and rhythm with a normal S1 and S2. No gallops, murmurs, jr8 or rubs. Normal PMI, no JVD. No pulse deficits. Respiratory: Lungs have equal breath sounds bilaterally, clear to auscultation and percussion. No rales, rhonchi or wheezes noted. No increased work of breathing, no retractions or nasal flaring. Back: No spinal tenderness. No costovertebral tenderness. Full range of motion. Skin: Warm, dry with normal turgor. Normal color with no rashes, no lesions, and no evidence of cellulitis. MS/ Extremity: Pulses equal, no cyanosis. Neurovascular intact. Full, normal range of motion. Neuro: Awake and alert, GCS 15, oriented to person, place, time, and situation. Cranial nerves II-XII grossly intact. Motor strength 5/5 in all extremities. Sensory grossly intact. 22:02 Constitutional: The patient appears alert, awake, in obvious pain. 22:02 Abdomen/GI: Inspection: obese Bowel sounds: active, all quadrants, Palpation: soft, in all quadrants, moderate abdominal tenderness, in the epigastric area, mass, is not appreciated, rebound tenderness, is not appreciated, voluntary guarding, is not appreciated, involuntary guarding, is not appreciated, no appreciated organomegaly, Indicators: McBurney's point is not tender, Garcia's sign is negative, Rovsing's sign is negative. Vital Signs: 20:26 BP 232 / 119; Pulse 85; Resp 20; Temp 97.9(O); Pulse Ox 100% on R/A; Weight 73.48 kg; ss Height 5 ft. 1 in. (154.94 cm); Pain 10/10; 20:29 BP 230 / 102; Pulse 80; Resp 21; Temp 96.6; Pulse Ox 100% ; cs9 21:25 BP 192 / 83; Pulse 80; Resp 20; Temp 96.6; Pulse Ox 100% on R/A; bb 20:26 Body Mass Index 30.61 (73.48 kg, 154.94 cm) ss MDM: 20:24 Patient medically screened. jr8 22:02 Data reviewed: vital signs, nurses notes, and as a result, I will discharge patient. jr8 Data interpreted: Pulse oximetry: on room air is 100 %. Interpretation: normal. Counseling: I had a detailed discussion with the patient and/or guardian regarding: the historical points, exam findings, and any diagnostic results supporting the discharge/admit diagnosis, the need for outpatient follow up, a family practitioner, to return to the emergency department if symptoms worsen or persist or if there are any questions or concerns that arise at home. ED course: Patient feeling markedly better after the nausea medicine and pain medicine. BP has markedly decreased as well. Otherwise patient hemodynamically stable. Reexamination of her abdomen reveals only mild tenderness to the epigastric region. No focal guarding, rebounding, rigidity noted. Recommended follow-up with PCP in the next 1 to 2 days. If she were to worsening point time to come back for further evaluation. Patient good with this at this time.. Administered Medications: 21:25 Drug: Reglan (metoCLOPramide) 10 mg Route: IM; Site: left gluteus; bb 22:00 Follow up: Response: No adverse reaction; Nausea is decreased cc4 21:25 Drug: Demerol (meperidine) 50 mg Route: IM; Site: right gluteus; bb 22:00 Follow up: Response: No adverse reaction; Pain is decreased cc4 Disposition: 05/14 09:25 Co-signature as Attending Physician, Luis Sandra MD I agree with the assessment and juan plan of care. Disposition Summary: 05/13/21 22:18 Discharge Ordered Location: Home jr8 Problem: new jr8 Symptoms: have improved jr8 Condition: Stable jr8 Diagnosis - Gastroparesis jr8 Followup: jr8 - With: Private Physician - When: 2 - 3 days - Reason: Recheck today's complaints, Continuance of care, Re-evaluation by your physician Discharge Instructions: - Discharge Summary Sheet jr8 - Gastroparesis jr8 Forms: - Medication Reconciliation Form jr8 - Thank You Letter jr8 - Antibiotic Education jr8 - Prescription Opioid Use jr8 Prescriptions: - Zofran 4 mg Oral Tablet - take 1 tablet by ORAL route every 12 hours As needed; 20 tablet; Refills: 0, jr8 Product Selection Permitted Signatures: Luis Sandra MD MD cha Ballard, Brenda, RN RN bb Shannan Lynch RN RN ss Hermilo Carpio PA PA jr8 Saranya Jarrett RN RN cc4
[2021-05-13 22:37] VITALS: O2SAT 100
[2021-05-13 22:38] VITALS: TEMP 96.6
[2021-05-13 22:40] VITALS: BP 192/83
== END 2021-05-13 22:34 | disposition home or self-care (01) ==
LOC: ER 20:11
DX: E11.43 Type 2 diabetes mellitus with diabetic autonomic (poly)neuropathy (principal); K31.84 Gastroparesis; E11.22 Type 2 diabetes mellitus with diabetic chronic kidney disease; I13.2 Hypertensive heart and chronic kidney disease with heart failure and with stage 5 chronic kidney disease, or end stage renal disease; N18.6 End stage renal disease; I50.9 Heart failure, unspecified; Z99.2 Dependence on renal dialysis; Z86.16 Personal history of COVID-19; Z88.0 Allergy status to penicillin; Z88.5 Allergy status to narcotic agent; Z88.6 Allergy status to analgesic agent; Z88.8 Allergy status to other drugs, medicaments and biological substances
CPT/HCPCS: 96372; 99284; J2765; J2175

== ENCOUNTER 2021-06-30 16:43 | Inpatient (IN) | payer OTHER ==
--- OUTSIDE RECORDS SUMMARY | 2021-06-30 17:03 | XMS REPORT | Continuity of Care Document ---
:1980 Author Organization [facility] t Address [address] [place] [address] Care Team Providers Name Role Phone NOEMI, Vivien Primary Care Physician Unavailable Deshazo_T Attending Clinician Unavailable JYOTSNA Attending Clinician Unavailable MD DAMION BRASHER Attending Clinician Unavailable MD OSCAR SHAHID Attending Clinician Unavailable Ba Attending Clinician Unavailable GWYN Attending Clinician Unavailable MD KENYATTA Attending Clinician Unavailable KENYATTA Attending Clinician Unavailable AYDEE Attending Clinician Unavailable Benedicto BURNS Attending Clinician SHERRILL PHILIPPE Attending Clinician Unavailable Lamin BURNS, K.H. Attending Clinician Doctor Unassigned, Name Attending Clinician Unavailable Carlos BURNS Attending Clinician Manuel Sanchez DO Attending Clinician Naun Cleaning DPM Attending Clinician LAMIN, K.H. Attending Clinician Unavailable Chivo Attending Clinician Unavailable Chivo Attending Clinician Unavailable HAWA BHAKTA Attending Clinician Unavailable Deshathor_T Admitting Clinician Unavailable ANSHU Admitting Clinician Unavailable MD DAMION BRASHER Admitting Clinician Unavailable Ba Admitting Clinician Unavailable Admitting Clinician Unavailable MD KENYATTA Admitting Clinician Unavailable SHERRILL PHILIPPE Admitting Clinician Unavailable Chivo Admitting Clinician Unavailable HAWA BHAKTA Admitting Clinician Unavailable Payers Payer Name Policy Type Policy Number Effective Date Expiration Date S karla [employer] [id number] 2021 (MEDICARE 00:00:00 REPLACEMENT HMO) Advance Directives Directive Decision Effective Termination Comments Source Date Date Healthcare Agents on N/A [facility] ersity FileNameRelationshipHealthcare of [place] Agent Medical RelationshipCommunicationJennifer Branch FoundSibling3 - First Alternate Agent (Medical Power of Metal Hardener) Problems Condition Condition Condition Status Onset Resolution Last Treating Co mments Source Name Details Category Date Date Treatment Clinician Date AVF AVF Disease Active Univers (arteriove (arteriove 03-19 it y of nous nous 00:00: [place] fistula) fistula) 00 Medica l Branch End stage End stage Disease Active [facility] renal renal -16 Health failure on failure on 00:00: dialysis dialysis 00 Diabetes Diabetes Disease Active [facility] mellitus mellitus 16 Health with with 00:00: gastropare gastropare 00 sis sis Essential Essential Disease Active [facility] hypertensi hypertensi 16 He alth on on 00:00: 00 Irritable Irritable Disease Active [facility] bowel bowel -16 Health syndrome syndrome 00:00: (IBS) (IBS) 00 GASTROPARE Diagnosis Active 2021-02-10 Memoria HELENA/IBS-D 7-16 21:41:00 l /ANEMIA 00:00: Vin GASTROPARE 00 HELENA/IBS-D /ANEMIA Active 01/03/2021 [facility] NEW Diagnosis Active 2020-12-24 Mem oria PATIENT GI 4-26 10:39:00 l CONSULT NEW 00:00: [place] REFRACTORY PATIENT GI 00 GASTRO CONSULT REFRACTORY GASTRO Active 10/14/2020 [facility] Malfunctio Malfunctio Disease Active Overview : Univers n of n of 6-03 Formattin ity of arterioven arterioven 00:00: g of this [place] ous ous 00 note Medical dialysis dialysis might be Bran ch fistula, fistula, different initial initial from the encounter encounter original. Added automatic ally from request for surgery [id number] Candidiasi Candidiasi Disease Active U nivers s of vulva s of vulva 2-18 it y of and vagina [place] Screening Screening Disease Active Uni vers for breast for breast 2-18 it y of cancer cancer 00:00: [place] 00 Medical Branch NEW Diagnosis Active 2018-07-26 Mem oria EVALUATION 07-12 09:39:00 l NEW 00:00: [place] EVALUATION 00 Active 07/12/2018 [facility] Pyogenic Pyogenic Disease Active 2017-06 Overview: Un lori granuloma granuloma 0-17 Formattin i ty of of of 00:00: g of this [place] conjunctiv conjunctiv 00 note Me dical a, right a, right might be Bran ch different from the original. Added automatic ally from request for surgery [id number] Right eye Right eye Disease Active Overview: Univers affected affected 02-22 Formattin ity of by by 00:00: g of this [place] proliferat proliferat 00 note Me dical montse montse might be Branch diabetic diabetic different retinopath retinopath from the y with y with original. 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 Eviscerat ion OS on 8 - Dr. Latrell Mcknight Neurotroph Neurotroph Disease Active Overview : Univers ic cornea ic cornea 6-28 Formattin i ty of of left of left 00:00: g of this [place] eye eye 00 note Medical might be Branch different from the original. Added automatic ally from request for surgery [id number] ESRD (end ESRD (end Disease Active Overview: Univers stage stage 6-12 Formattin ity of renal renal 00:00: g of this [place] disease) disease) 00 note Medica l on on might be Branch dialysis dialysis different from the original. Added automatic ally from request for surgery [id number] LUQ pain LUQ pain Disease Active Unive rs 2-05 ity of 00:00: [place] 00 Medical Branch Glaucoma Glaucoma Disease Active Overview: Un lori due to due to 07-22 Formattin ity of silicone silicone 00:00: g of this Baljinder as oil oil 00 note Medical might be Branch different from the original. Added automatic ally from request for surgery [id number] Neovascula Neovascula Disease Active U nivers r r 1-18 ity of glaucoma, glaucoma, 00:[place] left eye left eye 00 Medica l Branch Increased Increased Disease Active Uni vers intraocula intraocula 1-18 it y of r pressure r pressure 00:00[place] Fall Fall Disease Active 2016-06 Univers 0-13 ity of 00:00: [place] 00 Medical Branch Pneumonia Pneumonia Disease Active 2016-06 Uni vers 0-11 ity of 00:00: Medical Branch Diabetes Diabetes Disease Active 2016-06 Overview: Un lori mellitus mellitus 0-05 Formattin ity of 00:00: g of this [place] 00 note Medical might be Branch different from the original. Added automatic ally from request for surgery [id number] Pseudotumo Pseudotumo Disease Active U nivers r cerebri r cerebri 9-25 ity of 00:00: [place] 00 Medical Branch Liver Liver Disease Active [facility] [...] foot left foot 00:00: Medi tawn[place] 00 [place] Hyperglyce Hyperglyce Disease Active [facility] 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 16 Kenyatta kes - type 2 type 2 00:00: Medical diabetes diabetes 00 Center mellitus mellitus Gastropare Gastropare Disease Active [facility] sis due to sis due to 01-03 Kenyatta kes - DM DM 00:00: Medical 00 Center Cyclic Cyclic Disease Active [facility] vomiting vomiting 01-03 [facility] - syndrome syndrome 00:00: Medica l 00 Center Anxiety Anxiety Disease Active [facility] -16 [facility] - 00:00: Medical 00 [place] Bipolar Bipolar Disease Active [facility] disorder disorder 01-03 [facility] - 00:00: Medical 00 [place] Hypertensi Hypertensi Disease Active [facility] ve ve 01-03 [facility] - emergency emergency 00:00: Medi tawnya 00 [place] Peripheral Peripheral Disease Active U viviana neuropathy neuropathy 01-03 it y of 00:00: [address] ACUTE RESP Diagnosis Active 2016-09-09 Memoria FAILURE 2- 09:11:00 l ACUTE 00:00: Vin RESP 00 FAILURE Active 07/23/2016 [facility] CONGESTION Diagnosis Active 2016-07-24 Memoria AMD 2- 01:49:00 l DIARRHEA 00:00: [place] CONGESTION 00 AMD DIARRHEA Active 07/23/2016 [facility] Congestive Congestive Disease Active 2015-06 U T heart heart - Health failure failure 00:00: (CHF) (CHF) 00 SOB/SWELLI Diagnosis Active 2015-062016-06-10 Memoria NG 2-21 15:48:00 l 00:00: [place] SOB/SWELLI 00 NG Active 6 [facility] CHF/RENAL Diagnosis Active 2015-062016-06-24 Memoria DISEASE 2- 15:35:00 l 00:00: Vin CHF/RENAL 00 DISEASE Active 06/10/2016 [facility] Obesity Obesity Disease Active 2015-06 Univers (BMI (BMI 0-12 ity of 30-39.9) 30-39.9) 00:00: [address] Branch Hyperosmol Hyperosmol Disease Active 2015-06 U viviana ar ar 0-12 ity of non-ketoti non-ketoti 00:[place] in c state in 00 Me dical patient patient Branch with 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 Hyperglyce Hyperglyce Disease Active 2015-06 U viviana maryam maryam 0-11 ity of 00:00: [place] [facility] Diabetic Diabetic Disease Active [place] rs ulcer of ulcer of 5-07 ity of both feet both feet 00:00[place] associated associated 00 Me dical with type with type Bran ch 2 diabetes 2 diabetes mellitus mellitus SANJUANA (acute SANJUANA (acute Disease Active U viviana kidney kidney 5-07 ity of injury) injury) 00:00: [place] [facility] Depression Depression Disease Active U viviana 5-07 ity of 00:00: [place] [facility] Bipolar 1 Bipolar 1 Disease Active Uni vers disorder disorder 5-07 ity of 00:00: [place] [facility] Suicidal Suicidal Disease Active [place] rs ideation ideation 5-05 ity of 00:00: [place] [facility] 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, 1.5, 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 00 Medical Branch Hematuria, Hematuria, Disease Active U viviana undiagnose undiagnose 2-16 it y of d cause d cause 00:00: [place] [facility] Cystitis Cystitis Disease Active 2014-06 Unive rs with with 1-17 ity of hematuria hematuria 00:[place] Essential Essential Disease Active 2014-06 Uni vers hypertensi hypertensi 1-13 it y of on, benign on, benign 00:00[place] Family Family Disease Active 2014-06 Univers history of history of 1-13 it y of breast breast 00:00: [place] cancer in cancer in 00 [facility] female female Branch Family Family Disease Active 2014-06 Univers history of history of 1-13 it y of ovarian ovarian 00:00: [place] cancer cancer 00 Medical Branch Galactorrh Galactorrh Disease Active 2014-06 U viviana ea ea 1-13 ity of 00:00: [place] Medical Branch History of History of Disease Active 2014-06 U viviana tubal tubal 1-13 ity of ligation ligation 00:00: [place] 00 Medical Branch Excessive Excessive Disease Active 2014-06 Uni vers or or 1- ity of frequent frequent 00:00: [place] menstruati menstruati 00 Me dical on on Branch Tobacco Tobacco Disease Active 2014-06 Univers use use - ity of disorder disorder 00:00: [place] 00 Medical Branch ABDOMINAL Diagnosis Active 2014-06-26 Memoria PAIN, 06-26 05:44:00 l SEIZURES 00:00: [place] ABDOMINAL 00 PAIN, SEIZURES Active 06/26/2013 [facility] ABD PAIN Diagnosis Active 2012-062013-04-19 M emoria 0-25 21:51:00 l ABD PAIN 19:00: Jake n 00 Active 04/14/2013 [place] GASTROPERI Diagnosis Active 2012-09-13 Memoria SIS - 15:17:00 l 00:00: [place] GASTROPERI 00 SIS Active 08/02/2012 [facility] ABDOMINAL Diagnosis Active 2012-03-14 Memoria PAIN 03-14 16:56:00 l 14:00: [place] ABDOMINAL 00 PAIN Active 03/14/2012 [place] NAUSEA, Diagnosis Active 2012-03-14 Me moria VOMITING 03-14 13:25:00 l NAUSEA, 08:00: Vin VOMITING 00 Active 03/14/2012 [facility] N/V Diagnosis Active 2011-12-08 Mem oria INABILITY 11-27 11:14:00 l TO N/V 00:00: Vin TOLERATE INABILITY 00 PO TO TOLERATE PO Active 2 [facility] VOMITTING Diagnosis Active 2011-11-28 Memoria 11-27 16:28:00 l 00:00: [place] VOMITTING 00 Active 11/28/2011 [facility] VOMITTING, Diagnosis Active 2011-09-18 Memoria HIGH BLOOD 09-17 09:45:00 l SUGAR 00:00: Vin VOMITTING, 00 HIGH BLOOD SUGAR Active 09/18/2011 [facility] Methicilli Problem Active 2021-01-31 M emoria n 3-13 22:29:25 l resistant 00:00: [place] Staphyloco Methicilli 00 ccus n aureus resistant (organism) Staphyloco ccus aureus (organism) Active 09/01/2011 Problem 01/31/2021 09/01/11 - Elbow woundProbl em added by Discern Expert. [facility] MRSA Problem Active 2012-03-16 Memor ia - 09:11:30 l MRSA 00:00: [place] 00 Active 09/01/2011 Problem 03/16/2012 - Elbow [id number] emily added by Discern Expert. [facility] VOMITING, Diagnosis Active 2011-09-01 Memoria BLOOD 08-30 03:19:00 l SUGAR 00:00: Vin READINGS VOMITING, 00 HIGH BLOOD SUGAR READINGS HIGH Active 08/31/2011 [facility] ELBOW Diagnosis Active 2011-09-10 Mem oria ABSCESS/HY - 16:26:00 l PERGLYCEMI ELBOW 00:00: Nidia nn A ABSCESS/HY 00 PERGLYCEMI A Active 08/31/2011 [facility] Hypokalemi Problem Active 2012-03-16 M emoria a - 09:11:30 l 00:00: [place] Hypokalemi 00 a Active 08/23/2011 Problem 03/16/2012 [facility] DKA Diagnosis Active 2011-08-24 Mem oria - 11:27:00 l DKA 00:00: Vin 00 Active 08/19/2011 [facility] VOMITING Diagnosis Active 2011-08-19 M emoria - 16:21:00 l VOMITING 00:00: Jake n 00 Active 08/19/2011 [facility] Final: Problem 2016-08-02 Memor ia Acute 02:46:22 l respirator Final: Herm naeem y failure, Acute unspecifie respirator d whether y failure, with unspecifie hypoxia or d whether hypercapni with a hypoxia or hypercapni a 08/02/2016 [facility] Hypoglycem Problem Inactiv 2012-03-16 Memoria ia e 09:11:30 l Vin Hypoglycem ia Inactive Problem 03/16/2012 [facility] Hypoglycem Problem Inactiv 2013-04-22 Memoria ia e 04:46:33 l (disorder) Jake n Hypoglycem ia (disorder) Inactive Problem 04/22/2013 [facility] Gastropare Problem Resolve 2021-01-31 Memoria sis d 22:29:25 l (disorder) [place] n Gastropare sis (disorder) Resolved Problem 01/31/2021 [facility] Hypertensi Problem Resolve 2021-01-31 Memoria ve d 22:29:25 l disorder, [place] systemic Hypertensi arterial ve (disorder) disorder, systemic arterial (disorder) Resolved Problem 01/31/2021 [facility] Psychiatri Problem Resolve 2021-01-31 Memoria c d 22:29:25 l behavioral Jake n disability Psychiatri (finding) c behavioral disability (finding) Resolved Problem 01/31/2021 [facility] Seizure Problem Resolve 2021-01-31 Mem oria (finding) d 22:29:25 l Seizure Vin (finding) Resolved Problem 01/31/2021 [facility] Hypertensi Problem Active 2012-03-16 M emoria on 09:11:30 l [place] Hypertensi on Active Problem 2 [facility] Hypomagnes Problem Active 2013-04-22 M emoria emia 04:46:33 l [place] Hypomagnes emia Active Problem 04/22/2013 [facility] Nausea and Problem Active 2012-03-16 M emoria vomiting 09:11:30 l Nausea Vin and vomiting Active Problem 03/16/2012 [facility] ENCNTR FOR Diagnosis Active 2020-12-24 Memoria GENERAL 10:39:00 l ADULT ENCNTR [place] MEDICAL FOR EXAM W/ GENERAL ADULT MEDICAL EXAM W/ Active [facility] DMI Diagnosis Active 2011-08-24 Mem oria KETOACD 11:27:00 l UNCONTROLD DMI Jake n KETOACD UNCONTROLD Active [facility] OTHER Diagnosis Active 2011-09-10 Mem oria GENERAL 16:26:00 l SYMPTOMS OTHER [place] GENERAL SYMPTOMS Active [facility] HEART Diagnosis Active 2016-06-24 Mem oria FAILURE, 15:35:00 l UNSPECIFIE HEART Nidia nn D FAILURE, UNSPECIFIE D Active [facility] ACUTE Diagnosis Active 2016-09-09 Mem oria RESPIRATOR 09:11:00 l Y FAILURE, ACUTE Nidia nn UNSP W RESPIRATOR HYPOXI Y FAILURE, UNSP W HYPOXI Active [facility] Nausea and Problem Resolve 2021-01-31 2021-01-31 Memoria vomiting d 6-10 22:29:25 22:29:25 l (disorder) Nausea 00:00: Herm naeem and 00 vomiting (disorder) Resolved 11/29/2011 Problem 01/31/2021 [facility] Hypokalemi Problem Resolve 2021-01-31 2021-01-31 Memoria a d 3- 22:29:25 22:29:25 l (disorder) 00:00: Jake n Hypokalemi 00 a (disorder) Resolved 08/23/2011 Problem 01/31/2021 [facility] Disorder Problem Resolve 2021-01-31 2021-01-31 Memoria of d 3- 22:29:25 22:29:25 l magnesium Disorder 00:00: Her braden metabolism of 00 (disorder) magnesium metabolism (disorder) Resolved 08/23/2011 Problem 01/31/2021 [facility] Hyperglyce Problem Resolve 2021-01-31 2021-01-31 Memoria maryam d 08-19 22:29:25 22:29:25 l (disorder) 00:00: [place] n Hyperglyce 00 maryam (disorder) Resolved 08/20/2011 Problem 01/31/2021 [facility] Ketoacidos Problem Resolve 2021-01-31 2021-01-31 Memoria is in d 2- 22:29:25 22:29:25 l diabetes 00:00: Vin mellitus Ketoacidos 00 (disorder) is in diabetes mellitus (disorder) Resolved 08/19/2011 Problem 01/31/2021 [facility] DKA Problem Resolve 2013-04-22 2013-04-22 Memoria (diabetic d 2- 04:46:33 04:46:33 l ketoacidos DKA 00:00: Jake n es) (diabetic 00 ketoacidos es) Resolved 08/19/2011 Problem 04/22/2013 [facility] History of Past Illness Condition Condition Condition Status Onset Resolution Last Treating Co mments Source Name Details Category Date Date Treatment Clinician Date Discharge Problem 2014-06-28 2014-06-28 Memoria Diagnosis: 1- 16:34:37 16:34:37 l Gastropare 06:00: Jake n sis Discharge 00 Diagnosis: Gastropare sis 06/26/2014 06/28/2014 [facility] Hyperglyce Problem Inactiv 2012-03-16 2012-03-16 Memmarin maryam e 08-19 09:11:30 09:11:30 l 00:00: Vin Hyperglyce 00 maryam Inactive 08/20/2011 Problem 03/16/2012 [facility] Allergies, Adverse Reactions, Alerts Allergy Allergy Status Severity Reaction(s) Onset Inactive Treating Comm ents Source Name Type Date Date Clinician Morphine Propensi Active Shortness of Univers ty to Breath 03-19 ity of adverse 00:00: [place] reaction 00 Medical s Branch MORPHINE DRUG Active ITCHING Univers INGREDI 03-19 ity of 00:00: [place] 00 Medical Branch Cephalex Allergy Active Hives UT in to 01-18 Health substanc 00:00: e 00 Cephalex Propensi Active Hives Univer s in ty to 01-18 ity of adverse 00:00: [place] reaction 00 Medical s Branch CEPHALEX DRUG Active Hives Univers IN INGREDI 01-18 ity of 00:00: [place] 00 Medical Branch Adhesive Drug Active Swelling 2016- UT Tape Allergy 2-14 Health 00:00: 00 Adhesive Propensi Active Swelling 2016- Univ ers Tape-Kerline ty to 2-14 ity of icones adverse 00:00: [place] reaction 00 Medical s to Branch drug ADHESIVE DRUG Active Med Rash 2016-06 Univers TAPE-KERLINE 2-14 ity of ICONES 00:00: [place] 00 Medical Branch Nitrofur Propensi Active Other - See Reports Univers antoin ty to comments 03-19 transient ity o f adverse 00:00: liver [place] reaction 00 disease Medical s with Branch nitrofura ntoin NITROFUR DRUG Active Other-Cmnt Univ ers ANTOIN INGREDI 03-19 ity of 00:00: [place] 00 Medical Branch Nitrofur Allergy Active Anaphylaxis Other [facility] antoin to 7-16 reaction( Health substanc 00:00: s): liver e 00 failure, Other (see comments) , Other - See commentsL iver failure Reports transient liver disease with nitrofura ntoinRepo rts transient liver disease with nitrofura ntoinLive r failure Reports transient liver disease with nitrofura ntoinLive r failure Liver failure Zolpidem Drug Active Other (See [address] Allergy Comments) 01-03 [...] [facility] - [facility] Center Guaifene Propensi Active Other - See numbness Univers sin ty to comments 01-03 ity of adverse 00:00: [place] reaction 00 Medical s Branch GUAIFENE DRUG Active Other-Cmnt Univ ers SIN INGREDI 01-03 ity of 00:00: [place] 00 Medical Branch Ketorola Allergy Active Swelling throatthr UT c to 6-25 oatthroat Health Trometha substanc 00:00: mine e 00 Ketorola Propensi Active Swelling throat Univ ers c ty to 6-25 ity of Trometha adverse 00:00: [place] mine reaction 00 Medical s to Branch drug KETOROLA DRUG Active High Swelling Univer s C INGREDI 6-25 ity of TROMETHA 00:00: [place] MINE 00 Medical Branch Phenylep Allergy Active Other UT hrine to [...] of 00:00: [place] 00 Medical Branch Zolpidem Propensi Active Other - See Sleep U nivers Tartrate ty to comments 06-23 walking ity o f adverse 00:00: [place] [...] Comments) , Other - See commentsn bety mbnessnum bnessnumb nessnericn travonnericne ssnumbnes s Prolex Propensi Active Other - See Uni vers ty to comments 12-30 ity of adverse 00:00: [place] reaction 00 Medical s to Branch drug PROLEX DRUG Active Other-Cmnt Univer s 12-30 ity of 00:00: [place] 00 Medical Branch Penicill Allergy Active Shortness of 2010-06 Other U T ins to breath 2-27 reaction( Health substanc 00:00: s): e 00 HivesAirw ay closure Penicill Propensi Active Anaphylaxis 2010-06 U nivers ins ty to 2-27 ity of adverse 00:00: [place] reaction 00 Medical s Branch PENICILL Drug Active Anaphylaxis 2010-06 Uni vers INS Class 2-27 ity of 00:00: [place] 00 Medical Branch penicill penicill Active Memori a ins ins l [place] codeine codeine Active Memoria l [place] morphine morphine Active Memori a l Vin lisinopr lisinopr Active Memori a il il l [place] Adhesive Adhesive Active Memori a Tape Tape l [place] Ambien Ambien Active Memoria l [place] Prolex Prolex Active Memoria DM DM l [place] Social History Social Habit Start Date Stop Date Quantity Comments Source History of tobacco Cigarette Smoker [facility] use Exposure to Not sure University of SARS-CoV-2 (event) [facility] Tobacco use and 2021-01-06 2021-01-06 Never used [facility] exposure 00:00:00 00:00:00 Alcohol intake 2021-01-06 2021-01-06 Ex-drinker [facility] 00:00:00 00:00:00 (finding) Social History 2020-12-24 2020-12-24 [facility] Claudia lainez 15:49:37 15:49:37 Cigarettes smoked 2020-06-27 2020-06-27 Univers ity of current (pack per 00:00:00 00:00:00 [facility] ) - Reported Branch Tobacco Comment 2020-04-02 2020-04-02 1 to 1 a day Univers ity of 00:00:00 00:00:[address] [facility] Cigarette 2017-12-17 2017-12-[address] [facility] - pack-years 00:00:00 00:00:00 [facility] Sex Ass[birth year] At [birth year] [facility] 00:00:00 00:00:00 Smoking Status Start Date Stop Date Source Current every day 2021-01-06 00:00:00 [facility] smoker Former smoker 2020-06-27 00:00:00 2020-06-27 00:00:00 [facility] Medications Ordered Filled Start Stop Current Ordering Indication Dosage Frequency Signature Comments Components Source Medication Medication Date Date Medication? Clinician (SIG) Name Name divalproex 2020-06 Yes 500mg Take 500 Un lori ER 0-01 mg by ity of (DEPAKOTE 23:08: mouth 2 [place] ER) 500 mg 36 (two) Medical 24 hr times Branch tablet daily. gabapentin 2020-06 Yes 100mg Take 100 Un lori 100 mg 0-01 mg by ity of capsule 23:08: mouth 2 [place] [id number] (two) Medical times Branch daily. vitamin C 2020-06 Yes 2000mg Take 2,000 Univers with sia 0-01 mg by ity of hips 23:08: mouth 2 [place] (VITAMIN C) 36 (two) Medical 1,000 mg times Branch tablet daily. metoprolol 2020-06 Yes 50mg Take 50 mg U nivers tartrate 50 0-01 by mouth ity of mg tablet 23:08: daily. [place] [id number] Medical Branch folic 2020-06 Yes 800mg Take 800 Univers acid/vit B 0-01 mg by ity of complex and 23:08: mouth [place] C 36 daily. Medical (DIALYVITE Branch 800 ORAL) linagliptin 2020-06 Yes Take by Un lori (TRADJENTA) 0-01 mouth. ity of 5 mg tablet 23:08: [address] Branch spironolact 2020-06 Yes 50mg Take 50 mg Univers one 50 mg 0-01 by mouth ity of tablet 23:08: daily. [address] Branch pravastatin 2020-06 Yes 40mg Take 40 mg Univers 40 mg 0-01 by mouth ity of tablet 23:08: daily. [address] Branch mv-mn/iron/ 2020-06 Yes 1{capsu Take 1 U nivers folic 0-01 le} capsule by ity of acid/herb 23:08: mouth [place] 190 36 daily. Medical (VITAMIN D3 Branch COMPLETE ORAL) SERTraline 2020-06 Yes 50mg Take 50 mg U nivers 50 mg 0-01 by mouth ity of tablet 23:08: daily. [address] Branch calcium 2020-06 Yes 667mg Take 667 Unive rs acetate 667 0-01 mg by ity of mg capsule 23:08: mouth 3 [place] (three) Medical times Branch daily with meals. cetirizine 2020-06 Yes 1{tbl} Take 1 Uni vers HCl/pseudoe 0-01 tablet by ity of phedrine 23:08: mouth [place] (ZYRTEC-D 36 daily. Medical ORAL) Branch furosemide [...] tramadol No Notes: Not Mem oria hydrochlori 8 to exceed l de 50 MG 11:14: 400mg/day. Her braden Oral Tablet 00 (Same As: Ultram) Simethicone No Notes: Mendoza janice 8-11 (Same as: l 01:36: Mylicon) Vin 00 epoetin Yes 2,000 unit Mendoza janice giovanny-epbx 8-10 = 1 mL, l 1999 19:37: IV, Vin units/mL 00 Q-M-W-F, preservativ to be e-free given at injectable post solution Dialysis sessions, 0 Refill(s) gabapentin Yes 300 mg = 1 M emoria 300 MG Oral 8-10 cap, PO, l Capsule 19:34: Q-M-W-, # Herm naeem 00 13 cap, 0 Refill(s) amLODIPine Yes 10 mg = 1 Me moria 10 mg oral 8-10 tab, PO, l tablet 19:33: Daily, # Boron 00 30 tab, 2 Refill(s) busPIRone Yes 7.5 mg = 1 Me moria 7.5 mg oral 8-10 tab, PO, l tablet 19:33: BID, 0 [place] 00 Refill(s) buPROPion Yes 75 mg = 1 Mem oria 75 mg oral 8-10 tab, PO, l tablet 19:33: Daily, # Vin 00 14 tab, 0 Refill(s) Norvasc No [...] not exceed l 09:29: 4 gm/day. Vin (Same as: Tylenol) tramadol No Notes: Not Mem oria hydrochlori 01-27 to exceed l de 50 MG 09:29: 400mg/day. Her braden Oral Tablet 00 (Same As: Ultram) heparin No Notes: Memoria 01-27 porcine l 02:00: heparin Vin Magnesium No Notes: Memori a Oxide 01-23 (Same as: l 22:54: Mag-Ox Bor[place] 00 400) Magnesium oxide 727mw=[id number] g elemental magnesium Dose=____m g magnesium oxide (___mg elemental magnesium) Coreg No Notes: Memoria 01-23 Give with l 02:00: food. Vin 00 (Same As: Coreg) Buspar No Notes: Memoria - (Same As: l 22:00: BuSpar) Vin 00 Fentanyl No Notes: Memoria - (Same as: l 21:06: Sublimaze) Preservat montse free. Norvasc No Notes: Memoria 8- (Same as: l 16:47: Norvasc) Vin 00 Wellbutrin No Notes: Memor ia 01-22 (Same As: l 16:00: Wellbutrin ) pantoprazol No Notes: For Memoria e 01-22 IV push l 14:00: reconstitu te with 10 ml 0.9% sodium chloride and push over 2 minutes. (Same as: Protonix) Aspirin 81 No Notes: Memor ia MG Chewable 01-22 Take with l Tablet 14:00: food. Vin [...] mg 14:00: Toprol XL) He rmann oral May split tablet, tab, but extended do not release crush. Pravastatin No Notes: Mendoza janice 8-04 (Same as: l 14:00: Pravachol) Zoloft No Notes: Memoria 8-04 (Same as: l 14:00: Zoloft) Tramadol No Notes: Not Mem oria 8-04 to exceed l 09:44: 400mg/day. (Same As: Ultram) Tylenol No Notes: Do [...] Memoria 8-04 Give with l 02:00: food. Boron 00 (Same As: Coreg) Saline No Notes: Memoria Flush 0.9% 01-22 Same as: l 02:00: BD Posiflush Sterile Valproate No 1,000 mg, Mem oria 01-22 2 tab, l 02:00: Route: PO, Boron 00 Drug form: ERTAB, Bedtime, Start date: [...] 01-21 (Same as: l Capsule 19:58: Neurontin) Cardene 40 No Notes: Memor ia mg in NS 01-21 Same as: l 200 mL 18:26: Cardene Vin (Titrate.) 00 Concentrat IV 40 mg ion: (0.2 mg /1 ml ) Cyproheptad No 4 mg, 1 Mem oria ine 01-21 tab, l 18:00: Route: PO, Vin Drug form: TAB, TID, Dosing Weight 72, kg, Start date: 01/21/21 13:00:00 CDT, Duration: 30 day, Stop date: 02/20/21 9:00:00 CDT Albuterol No Notes: SEE Me moria 01-21 RT l 17:49: DOCUMENTAT Vin ION [...] being intubated (unless the nurse is a HAND SALTER). Same as: Diprivan midazolam No Route: IV, Nj moria (ANES) 01-21 Drug form: l 17:18: [...] l 13:16: Mylicon, Vin 00 Phazyme, Genasyme) calcium No See Memoria acetate 667 01-21 Instructio l MG Oral 12:59: ns, 1 [...] 5,000 UT mansi (D3-5) 7-16 Units by [facility] th 5,000 Units 13:03: mouth 1 tablet 11 (one) time each day. folic 2020-0 Yes 1{tbl} QD Take 1 UT acid-vitami 7-16 tablet by a lth n B 13:03: mouth 1 complex-vit 11 (one) time nava each day. C-selenium- zinc (Dialyvite) 3 MG tablet linaGLIPtin Yes 5mg QD Take 5 mg U T (TRADJENTA 7-16 by mouth 1 Hea lth PO) 13:03: (one) time 11 each day. Xifaxan 550 Yes 1{tbl} QD Take 1 UT MG tablet 7[facility] 1 00 (one) time each day. rifaximin Yes 550 mg = 1 Me moria 550 MG Oral 7-06 tab, PO, l Tablet 18:46: TID, # 42 Jake n [XIFAXAN] 00 tab, 2 Refill(s), Pharmacy: [facility], 154.94, cm, 12/24/20 10:43:00 CDT, Height, 71.818, kg, 12/24/20 10:43:00 CDT, Weight {2 (480 ML Yes See Memoria Magnesium 12-24 Instructio l Sulfate 18:12: ns, take Jake n 0.0277 00 as MEQ/ML / directed, potassium give sulfate clenpiq if 0.0374 not MEQ/ML / covered by sodium insurance, sulfate # 1 ea, 0 0.257 Refill(s), MEQ/ML Oral Pharmacy: Solution) } [facility] [Suprep 808, Bowel Prep 154.94, Kit] cm, 12/24/20 10:43:00 CDT, Height, 71.818, kg, 12/24/20 10:43:00 CDT, Weight Citric Acid 0 Yes 160 mL, Mem oria 75 MG/ML / 7-06 PO, PRE l Magnesium 18:11: OP, # 1 Nidia nn Oxide 21.9 00 ea, 0 MG/ML / Refill(s), picosulfate Pharmacy: [facility] 0.[facility]25 Pharmacy MG/ML Oral 808, Solution 154.94, [Clenpiq] cm, 12/24/20 10:43:00 CDT, Height, 71.818, kg, 12/24/20 10:43:00 CDT, Weight cyproheptad Yes 4 mg = 1 Me moria ine 4 mg 7-06 tab, PO, l oral tablet 18:10: TID, X 30 H erm day, # 90 tab, 3 Refill(s), Pharmacy: [facility] 808, 154.94, cm, 12/24/20 10:43:00 CDT, Height, 71.818, kg, 12/24/20 10:43:00 CDT, Weight Zinc 0 Yes 140 mg, Memoria 7-06 PO, Daily, l 15:54: 0 Boron 00 Refill(s) Elderberry 0 Yes 0 Memoria preparation 7-06 Refill(s) l 15:54: Vin 00 Buspar 2020-0 Yes PO, BID, 0 Memor ia 7-06 Refill(s) l 15:53: Dialyvite 0 Yes 0 Memoria 5000 7-06 Refill(s) l 15:53: busPIRone 0 Yes 7.5mg Q.5D Take 7.5 UT (Buspar) 6-19 mg by Health 7.5 MG 00:00: mouth 2 tablet 00 (two) times a day. buPROPion 0 Yes 300mg Take 300 UT XL 6-19 mg by Health (Wellbutrin 00:00: mouth 1 XL) 300 MG 00 (one) time 24 hr each day tablet in the morning. traZODone 0 Yes 200mg QD Take 200 UT (Desyrel) 6-19 mg by Health 100 MG 00:00: mouth at tablet 00 night if needed. NEEDED sertraline 2021-0 Yes 50mg Take 50 mg U T (Zoloft) 50 6-19 by mouth 1 He alth MG tablet 00:00: (one) time 00 each day in the morning. gabapentin Yes 100mg QD Take 100 UT (Neurontin) 6-19 mg by Health 100 MG 00:00: mouth 1 capsule 00 (one) time each day. divalproex Yes 500mg Q.5D Take 500 UT (Depakote 6-19 mg by Health ER) 500 MG 00:00: mouth 2 24 hr 00 (two) tablet times a day. metoprolol Yes 1{tbl} QD Take 1 UT succinate 5-25 tablet by Healt h XL 00:00: mouth 1 (Toprol-XL) 00 (one) time 50 MG 24 hr each day. tablet ascorbic Yes 500mg Q.18864410 Take 500 UT acid 5-15 [id number] mg by [facility] (Vitamin C) 00:00: 3D mouth 3 500 MG 00 (three) tablet times a day. sucralfate Yes 1{tbl} QD Take 1 UT (Carafate) 5-10 tablet by Heal th 1 g tablet 00:00: mouth 1 00 (one) time each day. doxazosin 4 2020- No 4mg Take 4 mg [facility] mg tablet 06-27 by mouth 2 ity of 10:52: 00:00 (two) [place] 22 :00 times Medical daily. Branch doxazosin 4 Yes 4mg Take 1 Univ ers mg tablet 06-27 tablet by ity o f 00:00: mouth at [place] 00 bedtime. Medical Branch glipiZIDE 5 2019-06- No [id number] 5mg Take 1 [facility] mg tablet 07-0106 tablet by ity of 00:00: 00:00 mouth 2 [place] 00 :00 (two) Medical times Branch daily before breakfast and dinner. traZODone Yes 150mg Take 150 Uni vers 150 mg 8-13 mg by ity of tablet 00:00: mouth at [place] 00 bedtime. Medical Branch erythromyci 2020- No [id number] .5[in_u Place 0.5 Univers n 5 mg/gram 01-14 s] Inches in it y of (0.5 %) 00:00: 00:00 left eye 3 [place] as ophthalmic 00 :00 (three) Medica l ointment times Branch daily. Continue until you follow up with eye doctor. diphenhydrA 2020- No 50mg Take 1 Uni vers MINE 50 mg 806-27 tablet by ity of tablet 00:00: 00:00 [...] Medica l 59 Center hydrALAZINE Yes 100mg Q.58812770 Take [address] [facility] (APRESOLINE 7-20 [id number] mg by L ukes - ) 100 MG 15:20: 3D mouth 3 Medica l tablet 59 (three) Center times daily. magnesium 2017-0 Yes 400mg QD Take [address] [facility] oxide 7-20 mg by [facility] (MAG-OX) 15:20: mouth Medical 400 mg 59 daily. Center tablet metoclopram 2017-0 Yes 10mg Q.41691298 Take [address] [facility] gadiel HCl 7-20 [id number] by mouth 3 [facility] - (REGLAN) 10 [...] l 59 Center hydrALAZINE 2017-0 Yes 100mg Q.32928837 Take [address] [facility] [address] (APRESOLINE 7-20 [id number] mg by L ukes - ) 100 MG 15:20: 3D mouth 3 Medica l tablet 59 (three) Center times daily. magnesium 2017- Yes 400mg QD Take [address] [facility] oxide 7-20 mg by [facility] - (MAG-OX) 15:20: mouth Medical 400 mg 59 daily. Center tablet metoclopram 2017- Yes 10mg Q.61942564 Take [address] [facility] gadiel HCl 7-20 [id number] by mouth 3 [facility] - (REGLAN) 10 15:20: 3D (three) Med ical MG tablet 59 times Center daily. meclizine 2017 Yes 12.5mg Take 12.[address] (ANTIVERT) 7-20 mg by [facility] - 25 MG 15:20: mouth 3 Medical tablet 59 (three) Center times daily as needed. sertraline 2017 Yes anxiety QD Take by C HI [...] injection morning Use as directed . insulin 2017- Yes 5U QD Inject [address] [facility] [address] glargine 7-20 Units [facility] - (LANTUS) 00:00: subcutaneo Med ical 100 unit/mL 00 usly every Ce nter injection morning Use as directed . Furosemide Yes 40 mg = 1 Me moria 40 MG Oral 2 tab, PO, l Tablet 15:07: Daily, # Vin 00 30 tab, 0 Refill(s), Pharmacy: [facility] 808 Bumex No 0.5 mg, Memoria 2 Route: PO, l 15:00: Drug form: Vin 00 TAB, Daily, Dosing Weight 92.273, kg, Start date: 07/30/16 9:00:00 [employer], Duration: 30 day, Stop date: 08/28/16 9:00:00 [employer] Lasix 2016- No Notes: Memoria 2-08 (Same as: l 20:05: Lasix) Boron 00 May cause GI upset. Give with [...] Total Volume: 1,000, Start date: 07/26/16 12:26:00 [employer], Duration: 30 day, Stop date: 08/25/16 12:25:00 [employer] Sodium 2017-0 No 500 mL, Memoria Chloride 2-05 500 ml/hr, l 0.154 13:30: Infuse Vin MEQ/ML 00 Over: 1 Injectable hr, Route: Solution IV, 500, Drug form: INJ, ONCE, Priority: STAT, Dosing Weight 92.273 kg, Start date: 07/26/16 7:30:00 [employer], Duration: 1 doses or times, Stop date: 07/26/16 7:30:00 [employer] Insulin No 60 Memoria regular 2-04 units) l 08:39: WASTE: F/P Vin 00 - Black; E - Municipal Trash Bin Stable for 28 days at room temperatur e Expires in days from ____Date Insulin, 0 No Notes: Memoria Aspart, 2-04 Roll in l Human 07:31: palms of [place]on 00 hands gently; Do not shake vigorously . (Same as: NovoLOG) "single patient use only" WASTE: F/P - Black; E - Municipal Trash Bin Stable for 28 days at room temperatur e. Expires in days from ____Date Insulin, 2017-0 No Notes: Memoria Aspart, 2-04 Roll in l Human 05:42: palms of [place] 00 hands gently; Do not shake vigorously [...] sodium 2-04 (Same as: l 03:00: Depakote ER) Once [...] Weight 92.273, kg, Start date: 07/24/16 9:00:00 [employer], Duration: 30 day, Stop date: 08/22/16 9:00:00 [employer] OVER[employer] 24 HR No Notes: Memoria Divalproex 2-03 (Same as: l Sodium 500 15:00: Depakote Her braden MG Extended 00 ER) Release Tablet [Depakote] gabapentin No Notes: Memor ia 300 MG Oral 2-03 (Same as: l Capsule 15:00: Neurontin) Herm naeem Aspirin 81 No Notes: Memor ia MG Chewable 2-03 Take with l Tablet 15:00: food. Boron 00 Lasix No Notes: Memoria 2-03 (Same as: l 15:00: Lasix) Boron MEDICATION WASTE Product Size: 40 mg Product Wasted: ___ mg Zoloft No Notes: Memoria 2-03 (Same as: l 15:00: Zoloft) Vin Protonix No Notes: Memoria 2-03 Tablet l 15:00: should not Boron 00 be chewed or crushed. (Same as: Protonix) metoprolol No 100 mg, 2 Me moria extended 2-03 tab, l release 15:00: Route: PO, Herm Drug form: ERTAB, Daily, Start date: 07/24/16 9:00:00 [employer], Duration: 30 day, Stop date: 08/22/16 9:00:00 [employer] Insulin No Notes: Memoria Glargine 2-03 Same [...] Notes: Memoria 2-03 (Same l 14:50: as:MORPhin e Sulfate) Insulin, No Notes: Memoria Aspart, 2-03 Roll in l Human 13:30: palms of [place] 00 hands gently; Do not shake vigorously . (Same as: NovoLOG) "single patient use only" WASTE: F/P - Black; E - Municipal Trash Bin Stable for 28 days at room temperatur e. Expires in days from ____Date Dilaudid 2016- No Notes: Memoria 2-03 Same as l 11:28: Dilaudid Vin Insulin, No Notes: Memoria Aspart, 2-03 Roll in l Human 08:40: palms of [place] 00 hands gently; Do not shake vigorously . (Same as: NovoLOG) "single patient use only" WASTE: F/P - Black; E - Municipal Trash Bin Stable for 28 days at room temperatur e. Expires in days from ____Date Glucagon No 1 mg, Memoria 2- Route: IM, l 08:40: Drug form: Boron 00 PDR/INJ, PRN, Dosing Weight 92.273, kg, PRN Blood Glucose Results, Start date: 07/24/16 2:40:00 [employer], Duration: 30 day, Stop date: 08/23/16 2:39:00 [employer] Dextrose No 25 gm, 50 Mendoza janice 50% Syringe 2-03 mL, Route: l 08:40: IVP, Drug Vin 00 Form: INJ, Dosing Weight 92.273, kg, PRN, PRN Blood Glucose Results, Start date: 07/24/16 2:40:00 [employer] OVER[employer], Duration: 30 day, Stop date: 08/23/16 2:39:00 [employer] Docusate 2016- No Notes: Memoria 2-03 (Same as: l 07:20: Colace) Boron 00 (Do Not Crush) Ondansetron No Notes: Mendoza janice 2-03 (Same as: l 07:20: Zofran) Boron 00 MEDICATION WASTE Product Size: 4 mg Product Wasted: ___ mg Lasix No Notes: Memoria 2-03 (Same as: l 06:01: Lasix) Vin 00 MEDICATION WASTE Product Size: 40 mg Product Wasted: ___ mg Aspirin No Notes: Memoria 2- Take with l 05:48: food. Boron Prednisone No Notes: Memor ia 2- Take with l 05:02: food. Boron 00 Albuterol No Notes: Memori a 0.833 MG/ML 07-24 (Same as: l / 04:09: Duoneb) Vin Ipratropium 00 Ethel 0.167 MG/ML Inhalant Solution [DuoNeb] Furosemide 2015-06 [...] tab, PO, l Tablet 16:34: Daily, # Boron 00 30 tab, 0 Refill(s) Hydroxyzine 2015-06 [...] Memoria 2-26 (Same as: l 15:00: Lasix) Boron 00 May cause GI upset. Give with food or milk. Magnesium 2015-06 No Notes: Memori a Oxide 2-24 (Same as: l 13:36: Mag-Ox Bor[place] 00 400) Magnesium oxide 077il=625y g elemental magnesium Dose=____m g magnesium oxide (___mg elemental magnesium) Magnesium 2015-06 No Notes: Memori a Oxide 2-24 (Same as: l 09:47: Mag-Ox Bor[place] 00 400) Magnesium oxide 938wi=178r g elemental magnesium Dose=____m g magnesium oxide [...] XL 2-24 (Same as: l 00:00: Wellbutrin Boron 00 XL) "Do Not Crush" Norvasc 2015-06 No Notes: Memoria 2-24 (Same as: l 00:00: Norvasc) Boron 00 Insulin 2015-06 No Notes: Memoria Glargine [...] tab, PO, l tablet 15:35: Daily, 0 Boron 00 Refill(s) Sertraline 2015-06 Yes 200 mg [...] AND 1 l Capsule 15:27: CAP AT Boron 00 BEDTIME, 0 Refill(s) Insulin, 2015-06 No [...] Weight 86.364, kg, Start date: 06/11/16 9:00:00 [employer], Duration: 30 day, Stop date: 07/10/16 9:00:00 [employer]UL Insulin 2015-06 No Notes: Memoria Glargine 2-22 Same as: l 100 UNT/ML 15:00: Lantus) Do H ermann Injectable 00 not hold Solution insulin [Lantus] without contacting prescriber WASTE: F/P - Black; E - Municipal Trash Bin Zoloft 2015-06 No Notes: Memoria 2-22 (Same as: l 15:00: Zoloft) Vin 00 Insulin, 2015-06 No Notes: Memoria Aspart, 2-22 Roll in l Human 12:55: palms of [place] 00 hands gently; Do not shake vigorously . (Same as: NovoLOG) "single patient use only" WASTE: F/P - Black; E - Municipal Trash Bin Stable for 28 days at room temperatur e. Expires in days from ____Date heparin 2015-06 No Notes: Memoria sodium, 2- porcine l porcine 06:00: heparin Boron 2500 UNT/ML 00 Injectable Solution Albuterol 2015-06 No Notes: Memori a 0.833 MG/ML 08-12 (Same as: l / 03:00: Duoneb) Vin Ipratropium 00 Ethel 0.167 MG/ML Inhalant Solution [DuoNeb] gabapentin 2015-06 No 300 mg, Mendoza janice 300 MG Oral 08-12 Route: PO, l Capsule 03:00: Drug form: Herm naeem 00 CAP, Q12H, Dosing Weight 86.364, kg, (CrCl 30 - 59 ml/min), Start date: 06/10/16 21:00:00 [employer], Duration: 30 day, Stop date: 07/10/16 9:00:00 [employer] OVERHAUL divalproex 2015-06 No Notes: Memor ia sodium - (Same as: l 03:00: Depakote Boron 00 ER) Once daily dosing; indicated for migraines. Divalproe x sodium extended-r elease tab. Do not chew or crush. "Do Not Crush" Losartan 2015-06 No Notes: Memoria 2-22 (Same as: l 03:00: Cozaar) Boron Insulin, 2015-06 No Notes: Memoria Aspart, 2-22 Roll in l Human 00:50: palms of Vin 00 hands gently; Do not shake vigorously . (Same as: NovoLOG) "single patient use only" WASTE: F/P - Black; E - Municipal Trash Bin Stable for 28 days at room temperatur e. Expires in days from ____Date Dextrose 2015- No 12.5 gm, Memor ia 50% Syringe 2-22 25 mL, l 00:50: Route: Vin 00 IVP, Drug Form: INJ, Dosing Weight 86.364, kg, PRN, PRN Blood Glucose Results, Start date: 06/10/16 18:50:00 [employer] OVER[employer], Duration: 30 day, Stop date: 07/10/16 18:49:00 [employer]UL Glucagon 2015-06 No 1 mg, Memoria 2-22 Route: IM, l 00:50: Drug form: Vin 00 PDR/INJ, PRN, Dosing Weight 86.364, kg, PRN Blood Glucose Results, Start date: 06/10/16 18:50:00 [employer] OVER[employer], Duration: 30 day, Stop date: 07/10/16 18:49:00 [employer] Hydralazine 2015-06 No Notes: Mendoza janice 2-22 [...] janice 2-22 Route: IV, l 00:06: ONCE, Boron 00 Dosing Weight 86.364, kg, Start date: 06/10/16 18:06:00 [employer] OVER[employer], Stop date: 06/10/16 18:06:00 [employer] hydrOXYzine 2015-06 No Notes: Mendoza janice pamoate 2-21 (Same as: l 23:00: Vistaril) Boron 00 Furosemide 2015-06 No 60 mg, Memor ia 2-21 Route: l 22:32: IVP, Drug Vin 00 form: INJ, ONCE, Dosing Weight 86.364, kg, Start date: 06/10/16 16:32:00 [employer] OVER[employer], Stop date: 06/10/16 16:32:00 [employer]HAUL Lasix 2015-06 No Notes: Memoria 2-21 (Same as: l 17:22: Lasix) MEDICATION WASTE Product Size: 40 mg Product Wasted: _0__ mg Albuterol 2015-06 No Notes: Memori a 0.833 MG/ML 08-11 (Same as: l / 17:22: Duoneb) Ipratropium 00 Ethel 0.167 MG/ML Inhalant Solution [DuoNeb] Promethazin Yes 25 mg = 1 M emoria e 06 supp, UT, l Hydrochlori 14:45: Q6H, Jake gonzalez de [...] Dilaudid hydrOXYzine Yes 0 Memori a pamoate -06 Refill(s) l 11:18: Dicyclomine Yes 0 Memori [...] 06/26/14 4:56:00 Lorazepam No Notes: Memori a 1-06 (Same as: l 10:56: Ativan) Metoclopram No Notes: Mendoza janice gadiel 06 (Same as: l 10:55: Reglan) Zofran ODT [...] 04/14/13 23:10:00, Stop date: 04/14/13 23:10:00 ketorolac 2012- No Matthew Gary 30 mg, M emoria [...] Marx Rate: 500 l 0.9% 23:45: ml/hr, Boron (Bolus) IV 00 Infuse 500 mL over: 1 hr, Route: IV, kg, Total Volume: 500, Bolus Dose, Priority: STAT, Start date: 03/14/12 18:45:00, Duration: 1 doses or times, Stop date: 03/14/12 19:44:00 ondansetron 2012-0 No Hung Murillo 4 mg, Memoria - Marx Route: l 22:19: IVP, ONCE, Dosing Weight 58.636, kg, Priority: STAT, Start date: 03/14/12 17:19:00, Stop date: 03/14/12 17:19:00 morphine No Hung Murillo 5 mg, Me moria Sulfate 03-14 Marx Route: l 22:19: IVP, ONCE, [...] insulin No Blake 10 unit, Mem oria isophane-RATT[employer] SQUE[employer] REPAIRER 6-11 Deangelo 0.1 mL, l H 02:00: Brisa Route: Boron 00 SUB-Q, Drug form: INJ, Bedtime, Start date: 11/29/11 21:00:00, Duration: 30 day, Stop date: 12/28/11 21:00:00 Insulin No Blake 8 unit, Mendoza janice regular 6-11 Deangelo 0.08 mL, l 02:00: Route: Boron 00 SUB-Q, Drug form: SOLN, Bedtime, Start date: 11/29/11 21:00:00, Duration: 30 day, Stop date: 12/28/11 21:00:00 trazodone 2011-0 No Blake 200 mg, 2 Memoria 100 mg oral 6-11 Deangelo tab, l tablet 02:00: Route: PO, H ermann Drug form: TAB, Bedtime, Start date: 11/29/11 21:00:00, Duration: 30 day, Stop date: 12/28/11 21:00:00 Geodon No Blake 120 mg, 3 Mem oria [...] 11/29/11 20:11:00, Stop date: 11/29/11 20:11:00 morphine No Bismark 2 mg, Memori a Sulfate 6-10 Omidvar Route: l 21:33: IVP, ONCE, Boron 00 Start date: 11/29/11 16:33:00, Stop date: 11/29/11 16:33:00 morphine No Bismark 2 mg, 0.5 Me moria Sulfate 6-10 Omidvar mL, Route: l 21:32: IVP, Drug form: INJ, ONCE, Start date: 11/29/11 16:32:00, Stop date: 11/29/11 16:32:00 Tylenol No Bismark 650 mg, 2 Mem oria 6-10 Omidvar tab, l 19:16: Route: PO, Boron 00 Drug form: TAB, Q4H, PRN Pain, Start date: 11/29/11 14:16:00, Duration: 30 day, Stop date: 12/29/11 14:15:00 insulin 2011-0 No Blake 14 unit, Mem oria isophane-[employer] REPAIRER 6-10 Deangelo 0.14 mL, l H 14:00: [...] Deangelo 0.1 mL, l 06:30: Brisa Route: Boron 00 SUB-Q, Drug form: SOLN, TID-Before Meals, PRN Blood Glucose Results, Start date: 11/29/11 1:30:00, Duration: 30 day, Stop date: 12/29/11 1:29:00 Dextrose No Blake 25 gm, 50 M emoria 50% Syringe 6-10 Deangelo mL, Route: l 06:30: Brisa IVP, Drug Herm naeem 00 Form: INJ, PRN, PRN Blood Glucose Results, Start date: 11/29/11 1:30:00, Duration: 30 day, Stop date: 12/29/11 1:29:00 glucagon No Blake 1 mg, Memor ia 6-10 [...] 30 day, Stop date: 12/29/11 1:28:00 Saline No Blake 5 ml, Memoria Flush 0.9% [...] mL, Route: l 04:01: Brown IVP, Drug Boron 00 form: INJ, ONCE, Priority: STAT, Start [...] day, Stop date: 12/28/11 17:47:00 NS (Bolus) 0 No Arif Domenico 1,000 mL, Memoria IV 1,000 mL 11-27 Rate: l 20:36: 1,000 Boron 00 ml/hr, Infuse over: 1 hr, Route: IV, Dosing Weight 57.273 kg, Total Volume: 1,000, Start date: 11/28/11 15:36:00, Duration: 30 day, Stop date: 12/28/11 15:35:00 Ativan 2011- No Arif Domenico 2 mg, 1 Mem oria 6-09 mL, Route: l 20:35: IVP, Drug Vin 00 form: INJ, ONCE, Priority: STAT, Start date: 11/28/11 15:35:00, Stop date: 11/28/11 15:35:00 Novolin R 2011- Yes Hughes-Jason 8 unit, M emoria 100 3-30 Hackett SUB-Q, l units/mL 17:47: Eunice Q12H, 2 He rmann injectable 42 Pu vial, solution Substituti on Allowed, SOLN Novolin N Yes Hughes-Jason 10 unit, Memoria 100 3-30 Hackett SUB-Q, l units/mL 17:46: Eunice Bedtime, H ermann subcutaneou 27 Pu 10 ml, s injection Substituti on Allowed, SUSP Novolin N Yes Hughes-Jason 14 unit, Memoria 100 3-30 Hackett SUB-Q, l units/mL 17:44: Eunice QAM, 1 Her braden subcutaneou 37 Pu vial, s injection Substituti on Allowed, SUSP magnesium No Hughes-Jason 400 mg, 1 Memoria oxide 3-30 Hackett tab, l 14:55: Dawson Route: PO, Her braden 00 Pu Drug form: TAB, ONCE, Priority: STAT, Start date: 09/18/11 9:55:00, Stop date: 09/18/11 9:55:00 Insulin 2011-0 No Hughes-Jason 8 unit, Mem oria regular 3-30 Hackett 0.08 mL, l 14:22: Dawson Route: Vin 00 Pu SUB-Q, Drug form: SOLN, ONCE, Priority: STAT, Start date: 09/18/11 9:22:00, Stop date: 09/18/11 9:22:00 Lactated 2011- No Hughes-Jason 1,000 mL, Memoria Ringers 3-30 Hackett Rate: l (Bolus) IV 14:16: Dawson 1,000 He rmann 1,000 mL 00 Pu ml/hr, Infuse over: 1 hr, Route: IV, Total Volume: 1,000, Bolus Dose, Priority: STAT, Start date: 09/18/11 9:16:00, Duration: 1 doses or times, Stop date: 09/18/11 10:15:00 Sodium 2012-0 No Hughes-Jason 1,000 mL, Me moria Chloride 3-30 Hackett Rate: l 0.9% 14:06: Dawson 1,000 Vin [...] Hughes-Jason 1,000 mL, Me moria Chloride 3-30 Hackett Rate: l 0.9% 13:56: Dawson 1,000 Boron (Bolus) IV 00 Pu ml/hr, 1000 mL Infuse over: 1 hr, Route: IV, kg, Total Volume: 1,000, Bolus Dose, Priority: STAT, Start date: 09/18/11 8:56:00, Duration: 1 doses or times, Stop date: 09/18/11 9:55:00 clindamycin 2011-0 No Eber L 300 mg, 2 Memoria 3-21 Anabelle cap, l 21:00: Route: PO, Boron 00 Drug form: CAP, Q8H, Start date: 09/09/11 16:00:00, Duration: 30 day, Stop date: 10/09/11 8:00:00 Colace 100 2011-0 Yes Luna 100 mg, 1 Memoria mg oral 3-21 Amelia cap, PO, l capsule 18:47: Dwight BID, 60 Her braden 19 cap, Substituti on Allowed, CAP clindamycin 2011-0 Yes Luna 300 mg, 2 Memoria 150 mg oral 3-21 Amelia cap, PO, l capsule 18:46: Zeeshan Q8H, 30 Her braden 55 cap, Substituti on Allowed, CAP Ellsworth Yes Luna 1 tab, PO, Memoria 10/325 oral 3-21 Amelia Q4H, PRN, l tablet 18:46: Dwight 30 tab, Herm naeem 36 Pain, Substituti on Allowed, Maintenanc e, TAB Ellsworth No Hollie Donavan 1 tab, Mendoza janice [...] 30 day, Stop date: 10/07/11 9:00:00 enalapril 0 No Bismark 5 mg, 1 Mem oria 3-19 Omidvar tab, l 15:30: Route: PO, Vin 00 Drug form: TAB, Daily, Start date: 09/07/11 10:30:00, Duration: 30 day, Stop date: 10/07/11 9:00:00 flumazenil 0 No Gayle 0.2 mg, 2 Memoria 3-19 Josefina mL, Route: l 14:19: Bussey IVP, Drug Jake n 00 form: INJ, PRN, PRN Benzodiaze pine Reversal, Initial dose, Start date: 09/07/11 9:19:00, Duration: 1 day, Stop date: 09/08/11 9:18:00 naloxone 2011-0 No Gayle 0.04 mg, Me moria 3-19 Josefina 0.1 mL, l 14:19: Bussey Route: Boron 00 IVP, Drug form: INJ, Q2MIN, PRN Narcotic Reversal, Start date: 09/07/11 9:19:00, Duration: 8 doses or times, Stop date: Limited # of times ondansetron No Gayle 4 mg, 2 Memoria 3-19 Josefina mL, Route: l 14:19: Bussey IVP, Drug Jake n 00 form: INJ, ONCE, PRN Nausea & Vomiting, Start date: 09/07/11 9:19:00 hydromorpho No Gayle 0.5 mg, Memoria ne 09-06 Josefina 0.25 mL, l 14:19: Gavin Route: Boron 00 IVP, Drug form: INJ, Q5Min, PRN [...] Rate: 125 l 1,000 mL 14:06: ml/hr, Boron 00 Infuse over: 8 hr, Route: IV, [...] 30 day, Stop date: 10/06/11 23:59:00 normal 0 No Yury W 1,000 mL, M emoria saline 0.9% -18 Adeline Rate: 100 l IV 1000 mL [...] Wong tab, l 04:00: Route: PO, Vin Drug form: ECTAB, Daily, PRN Constipati on, Priority: NOW, Start date: 09/04/11 23:00:00, Duration: 30 day, Stop date: 10/04/11 22:59:00 Zofran 2011-0 No Hector 4 mg, 2 Memori a 3-16 Hissam mL, Route: l 23:11: Peg IV, Drug Jake n form: INJ, Q4H, PRN as needed for nausea/vom iting, Priority: NOW, Start date: 09/04/11 18:11:00, Duration: 30 day, Stop date: 10/04/11 18:10:00 Ellsworth 2011-0 No Mahammad 1 tab, Memori a [...] Kavon mL, Route: l 14:50: IVP, Drug Boron 00 form: INJ, ONCE, PRN Nausea & Vomiting, Start date: 09/04/11 9:50:00, Duration: 1 doses or times, Stop date: Limited # of times ropivacaine 2011-0 No Rosalino Dosing: Memoria 0.2% in NS 3-16 Kavon 10cc/hr, l - site 1 14:50: Route: Boron 400 mL 00 NERVE BLOCK, Start date: 09/04/11 9:50:00 400 mL, Duration: 30 day, Stop date: 10/04/11 9:49:00 naloxone 2011-0 No Rosalino 0.04 mg, Me moria 3-16 Kavon 0.1 mL, l 14:50: Route: Boron 00 IVP, Drug form: INJ, Q2MIN, PRN Narcotic Reversal, Start date: 09/04/11 9:50:00, Duration: 30 day, Stop date: 10/04/11 9:49:00 Ellsworth 2011-0 No Bismark 1 tab, Memoria 10/325 oral 3-16 Omidvar Route: PO, l tablet 14:49: Drug Form: Nidia nn TAB, Q4H, PRN Pain, Start date: 09/04/11 9:49:00, Stop date: 10/04/11 9:48:00 labetalol 2011- No Gregory F 5 mg, Mendoza janice 3-16 Puga Route: IV, l 14:40: ONCE, Vin 00 Start date: 09/04/11 9:40:00, Stop date: 09/04/11 9:40:00 ondansetron No Hollie 4 mg, 2 Me moria 3-16 Beck mL, Route: l 13:37: Hayden IVP, Drug Nidia nn form: INJ, ONCE, PRN Nausea & Vomiting, [...] Beck 0.5 mL, l 13:37: Hayden Route: Boron 00 IVP, Drug form: INJ, Q30Min, PRN [...] 3-16 Kavon 0.25 mL, l 13:37: Route: Boron 00 IVP, Drug form: INJ, Q5Min, PRN Pain Score 4-6, Start date: 09/04/11 8:37:00, Duration: 5 doses or times, Stop date: Limited # of times clindamycin 2011-0 No Eber L 600 mg, 4 Memoria 3-15 Anabelle mL, Route: l 16:00: IVPB, Boron [id number], Start date: 09/03/11 11:00:00, Duration: 30 day, Stop date: 10/03/11 8:00:00 potassium 2011-0 No Bismark 40 mEq, 2 M emoria chloride 3-15 Omidvar tab, l 13:39: Route: PO, Boron 00 Drug form: ERTAB, ONCE, Start date: 09/03/11 8:39:00, Stop date: 09/03/11 8:39:00 Ellsworth 5/325 2011-0 No Rosalino 1 tab, M emoria oral tablet 3-15 Kavon Route: PO, l 05:00: Drug Form: Boron 00 TAB, Q4H, Start date: 09/03/11 0:00:00, Duration: 30 day, Stop date: 10/02/11 20:00:00 Geodon 2011-0 No Eber L 120 mg, 3 Memoria 3-15 Anabelle cap, l 02:00: Route: PO, Boron Drug form: CAP, Bedtime, Start date: 09/02/11 [...] Duration: 30 day, Stop date: 10/02/11 9:00:00 Ellsworth 5/325 2011-0 No Rosalino 1 tab, M [...] Route: l 14:00: IVPB, Drug form: INJ, [id number], Start date: 09/02/11 9:00:00, Duration: 30 day, Stop date: 10/01/11 21:00:00 clindamycin 2011-0 No Eber L 600 mg, 4 Memoria (SCIP) 3-14 Anabelle mL, Route: l 10:00: IVPB, Boron [id number], Start date: 09/02/11 5:00:00, Duration: 3 doses or times, Stop date: 09/02/11 21:00:00 clindamycin 2011-0 No Yury 600 mg, 4 Memoria (SCIP) 3-14 Silverio mL, Route: l 04:00: Connally IVPB, Boron 00 [id number], Start date: 09/01/11 23:00:00, Duration: 3 doses or times, Stop date: 09/02/11 15:00:00 insulin 2011-0 No Bismark 15 unit, Mendoza janice isophane-[employer]PA[employer]ER 3-14 Omidvar 0.15 mL, l H 02:00: Route: Boron 00 SUB-Q, Drug form: INJ, Q12H, Start [...] 3-14 Barbra Route: l 01:07: Feliciano IVP, Boron 00 Q5Min, PRN Pain Score 4-6, Start [...] & Vomiting, Start date: 09/01/11 20:07:00 vancomycin 2011-0 No Mele 1 gm, Mem oria 3-14 Gauvain Route: l 01:00: IVPB, Drug form: INJ, [id number], Start date: 09/01/11 20:00:00, Duration: 30 day, Stop date: 10/01/11 8:00:00 Lactated 2011-0 No Charbel A 1,000 mL, Memoria Ringers IV 3-14 Wong Rate: 125 l 1,000 mL 00:55: ml/hr, Boron 00 Infuse over: 8 hr, Route: IV, Dosing Weight 68.2 kg, Total Volume: 1,000, Start date: 09/01/11 19:55:00, Duration: 30 day, Stop date: 10/01/11 19:54:00 vancomycin 2011-0 No Missael 1 gm, Memor ia 3-14 Movva Route: l 00:00: IVPB, Drug form: INJ, [id number], Start date: 09/01/11 19:00:00, Duration: 30 day, Stop date: 10/01/11 7:00:00 insulin 2011-0 No Missael 6 unit, Memori a aspart 3-13 Movva 0.06 mL, l 23:23: Route: Boron 00 SUB-Q, Drug form: SOLN, TID-Before Meals, PRN Blood Glucose Results, Start date: 09/01/11 18:23:00, Duration: 30 day, Stop date: 10/01/11 18:22:00 glucagon 2011-0 No Missael 1 mg, Memoria 3-13 Movva Route: IM, l 23:23: Drug form: Boron PDR/INJ, PRN, PRN Blood Glucose Results, Start [...] Beni mL, Route: l 21:14: IVP, Drug Boron 00 form: INJ, Q4H, PRN Severe Pain, Start date: 09/01/11 16:14:00, Stop date: 10/01/11 16:13:00 Lactated 2011-0 No Cesar 1,000 mL, Me moria Ringers IV 3-13 Manuel [place] Rate: 100 l 1,000 mL 19:03: ml/hr, Boron 00 Infuse over: 10 hr, Route: IV, [...] Madden Rate: l 0.9% 14:53: Gurinder 1,000 Boron (Bolus) IV 00 ml/hr, 1,000 mL Infuse [...] L 1,000 mL, M emoria Chloride 3-13 [place] Rate: l 0.9% 10:41: 1,000 Vin (Bolus) IV 00 ml/hr, 1000 mL Infuse over: 1 hr, Route: IV, Dosing Weight 68.182 kg, Total Volume: 1,000, Bolus Dose, Priority: STAT, Start date: 09/01/11 5:41:00, Duration: 1 doses or times, Stop date: 09/01/11 6:40:00 ondansetron 2011-0 No Bee L 4 mg, Memoria 3-13 [place] Route: l 09:06: IVP, Drug Boron 00 form: INJ, ONCE, Priority: STAT, Start date: 09/01/11 4:06:00, Stop date: 09/01/11 4:06:00 morphine 2011-0 No Bee L 4 mg, Mem oria Sulfate 3-13 Cruzito Route: l 09:06: IVP, ONCE, Vin 00 Priority: STAT, Start date: 09/01/11 4:06:00, Stop date: 09/01/11 4:06:00 Sodium 2011-0 No Bee L 1,000 mL, M emoria Chloride 3-13 Cruzito Rate: l 0.9% 08:42: 1,000 Boron (Bolus) IV 00 ml/hr, 1000 mL Infuse over: 1 hr, Route: IV, Dosing Weight 68.182 kg, Total Volume: 1,000, Bolus Dose, Priority: STAT, Start date: 09/01/11 3:42:00, Duration: 1 doses or times, Stop date: 09/01/11 4:41:00 Insulin 2011- No Bee L 8 unit, Me moria regular 08-31 Cruzito 0.08 mL, l 08:30: Route: Boron 00 IVP, Drug form: SOLN, ONCE, Priority: STAT, Start date: 09/01/11 3:30:00, Stop date: 09/01/11 3:30:00 Sodium 2011- No Bee L 1,000 mL, M emoria Chloride 08-31 Cruzito Rate: l 0.9% 07:29: 1,000 Vin (Bolus) IV 00 ml/hr, 1,000 mL Infuse over: 1 hr, Route: IV, Dosing Weight 68.182 kg, Total Volume: 1,000, Bolus Dose, Priority: STAT, Start date: 09/01/11 2:29:00, Duration: 1 doses or times, Stop date: 09/01/11 3:28:00 potassium 2011- No Velásquez Noam 40 mEq, 2 Memoria chloride 3-04 Akmal tab, l 15:00: Route: PO, Boron 00 Drug form: ERTAB, BID, Start date: [...] injection 3, Substituti on Allowed, SUSP insulin 2011- Yes Velásquez Noam 5 Units, Memoria regular 3-04 Akmal SUB-Q, l human 14:40: TID, 30 Vin recombinant 10 vial, 3, 100 3, units/mL Substituti injectable on solution Allowed, before breakfast lunch and dinner, SOLNbefore breakfast lunch and dinner potassium 2011-0 No Velásquez Noam 20 mEq, Memoria chloride 3-04 Akmal 100 mL, l 14:00: Route: Boron IVPB, Drug form: INJ, Q2H, Start date: [...] 08/23/11 6:27:00, Stop date: 08/23/11 6:27:00 magnesium No Velásquez Noam 2 gm, 50 Memoria sulfate 3-04 Akmal mL, Route: l 12:26: IVPB, Drug form: INJ, ONCE, Total dose [...] Rodriguez 10 mL, l 16:25: Ahmed Route: Boron 00 IVPB, ONCE, Start date: 08/22/11 10:25:00, [...] Akmal mL, Route: l 13:26: IVPB, Drug Boron 00 form: INJ, ONCE, Total dose = [...] 30 day, Stop date: 09/20/11 8:42:00 Geodon 2012-0 No Yury 60 mg, 3 [...] No Bismark 4 mg, 2 Memori a - Rodriguez mL, Route: l 17:15: Ahmed IVP, Drug Boron 00 form: INJ, Q8H, PRN Nausea, Start date: 08/20/11 11:15:00, Duration: 30 day, Stop date: 09/19/11 11:14:00 insulin 2011-0 No Yury 10 unit, Mem oria isophane-[employer]PA[employer]ER 08-19 Gato Route: l H 16:00: Rivero [...] insulin No Yury 10 unit, Mem oria isophane-[employer] REPAIRER 08-19 Gato Route: l H 15:00: Rivero [...] l 12:47: Rivero IVPB, PRN, H ermann PRN Abnormal Lab Result, Start date: 08/20/11 [...] insulin 2011- No 10 unit, Memori a isophane-[employer] REPA[employer]ER 3- SUB-Q, l H 09:26: BID, Vin [...] 2011- No Yury 18 unit, Mem oria isophane-[employer] REPAIRER 3- Gato 0.18 mL, l H 08:58: [...] 2011- No Yury 1 mg, Memor ia 3- Gato Route: IM, l 08:48: Rivero Drug form: H erm PDR/INJ, PRN, PRN Blood Glucose Results, Start [...] 09/19/11 3:45:00 ondansetron No Hughes-Jason 4 mg, Cox Monettria 08-19 Hackett Route: l 07:42: Dawson IVP, Drug Herm naeem 00 Pu form: INJ, ONCE, Priority: STAT, Start date: 08/20/11 1:42:00, Stop date: 08/20/11 1:42:00 GI cocktail 2011- No Hughes-Jason 30 ml, Memoria 08-19 [place]ett Route: PO, l 05:12: Eunice Drug Form: Her braden 00 Pu SUSP, ONCE, STAT, Start date: 08/19/11 23:12:00, Stop date: 08/19/11 23:12:00 ondansetron 0 No Hughes-Jason 4 mg, Cox Monettri 08-19 [place] Route: PO, l 05:10: Eunice Drug form: Her braden 00 Pu TABDIS, ONCE, Priority: STAT, Start date: 08/19/11 23:10:00, Stop date: 08/19/11 23:10:00 Lactated 2011-0 No Hughes-Jason 1,000 mL, Memoria Ringers 08-19 [place] Rate: l (Bolus) IV 05:10: Eunice 1,000 He rmann 1000 mL 00 Pu ml/hr, Infuse over: 1 hr, Route: IV, Total Volume: 1,000, Bolus Dose, Priority: STAT, Start date: 08/19/11 23:10:00, Duration: 1 doses or times, Stop date: 08/20/11 0:09:00 Insulin 2011- No Hughes-Jason 7 unit, Mem oria regular 08-19 Hackett 0.07 mL, l 04:15: Dawson Route: Boron 00 Pu SUB-Q, Drug form: SOLN, ONCE, Priority: STAT, Start date: 08/19/11 22:15:00, Stop date: 08/19/11 22:15:00 Geodon 60 No Yury 60 mg, 1 M emoria mg oral Gato cap, PO, l capsule 23:24: Rivero BID, 180 Vin 43 cap, Substituti on Allowed, CAP trazodone No 300 mg, 1 Mem oria 300 mg oral 2- tab, PO, l tablet 23:23: Bedtime, Vin [...] 2011-0 No William 40 mg, Memor ia - Wong Route: l 22:04: Pooja IVP, Drug Jake n 00 form: INJ, ONCE, Start date: 08/19/11 16:04:00, Stop date: 08/19/11 16:04:00 ondansetron 2011-0 No William 8 mg, Mem oria - [...] 2020-02-20 Completed [facility] Vaccine [facility] [facility] TDAP (ADACEL) VACCINE 2019-07-25 Completed Uni versity of 00:00:[address] [facility] Meningococcal B, OMV 2019-07-25 Completed Univ ersity of 00:00:[address] [facility] Meningococcal 2019-07-25 Completed University of Polysaccharide 00:00:00 [facility] tawnya (groups A, C, Y and Branc h W-135) conjugate vaccine (MCV4P) Influenza Virus 2019-02-27 Completed [facility] Vaccine Quad .5 mL IM 00:00:00 [facility] 6+ MO Branch hepatitis B vaccine 2018-04-07 Completed Memor ial Vin 00:00:00 influenza virus 2018-03-29 [facility] inactivated [facility]:00:00 hepatitis B vaccine 2017-11-26 Completed Memor ial Boron 00:00:00 influenza virus 2017-10-25 [facility], inactivated 00:00:00 pneumococcal 2017-10-25 Completed [facility] 23-valent vaccine 00:00:00 Influenza Virus 2017-06-22 Completed [facility] Vaccine Quad IM 3+ 00:00:00 [facility] Influenza Virus 2016-04-02 Completed [facility] of Vaccine Quad IM 3+ 00:00:00 [facility] Influenza Virus 2015-10-28 Completed [facility] of Vaccine Quad IM 3+ 00:00:00 [facility] Vital Signs Vital Name Observation Time Observation [...] Body weight 2021-01-03 12:57:[facility] 2021-01-03 12:57:00 28.17 [facility]2 [facility] Systolic blood 2021-01-03 12:57:00 201 mm[Hg] [facility] Diastolic blood 2021-01-03 12:57:00 104 mm[Hg] [facility] Heart rate 2021-01-03 12:57:00 73 /min [facility] Body temperature 2021-01-03 12:57:00 36 Cathleen [facility] Body height 2021-01-03 12:57:00 160 [facility] Body weight 2021-01-03 12:57:00 [facility]122 [facility] 2021-01-03 12:57:00 28.17 kg[facility] Systolic blood 2020-06-27 16:33:00 171 mm[Hg] Univer sity of pressure [facility] Diastolic blood 2020-06-27 16:33:00 98 mm[Hg] Unive rsity of pressure [facility] Heart rate 2020-06-27 16:33:00 71 /min [facility] Respiratory rate 2020-06-27 16:29:00 19 /[facility] 2020-06-27 16:29:00 154.9 cm [facility] Body weight 2020-06-27 16:29:00 77.293 kg [facility] BMI 2020-06-27 16:29:00 32.20 kg/m2 [facility] Oxygen saturation in 2020-06-27 16:29:00 99 /min [facility] Arterial blood by [facility] Pulse oximetry Branch Systolic (mm Hg) 2021-01-29 20:03:00 Mendoza rial Vin Diastolic (mm Hg) 2021-01-29 20:03:00 Mem orial [place] Systolic (mm Hg) 2021-01-29 19:40:00 Mendoza rial Vin Diastolic (mm Hg) 2021-01-29 19:40:00 Mem orial [place] Systolic (mm Hg) 2021-01-29 18:05:00 Mendoza rial Boron Diastolic (mm Hg) 2021-01-29 18:05:00 Mem orial Vin Respitory Rate 2021-01-29 16:55:00 Memori al [place] Temperature Oral (F) 2021-01-29 16:45:00 97.3 F Memorial Vin Respitory Rate 2021-01-29 16:45:00 Memori al [place] Respitory Rate 2021-01-29 16:30:00 Memori al Bor[place] Temperature Oral (F) 2021-01-29 13:10:00 97.6 F Memorial Vin Systolic (mm Hg) 2021-01-27 05:00:00 Mendoza rial Vin Diastolic (mm Hg) 2021-01-27 05:00:00 Mem orial Vin Systolic (mm Hg) 2021-01-27 04:00:00 Mendoza rial Boron Diastolic (mm Hg) 2021-01-27 04:00:00 Mem orial [place] Systolic (mm Hg) 2021-01-27 03:00:00 Mendoza rial Vin Diastolic (mm Hg) 2021-01-27 03:00:00 Mem orial Vin Respitory Rate 2021-01-26 19:00:00 Memori al [place] Respitory Rate 2021-01-26 18:00:00 Memori al [place] Respitory Rate 2021-01-26 17:00:00 Memori al [place] Temperature Oral (F) 2021-01-22 13:00:00 97.6 F Memorial [place] Height 2021-01-21 18:25:00 149.86 cm Memorial [place] Weight 2021-01-21 18:25:00 [facility] [place] BMI Calculated 2021-01-21 18:25:00 Memori al Vin Height 2021-01-21 17:09:00 157.48 cm Memorial Vin Height 2021-01-21 13:09:00 157.48 cm Memorial [place] Weight 2021-01-21 13:09:00 Memorial Vin BMI Calculated 2021-01-21 13:09:00 Memori al [place] Heart Rate 2021-01-21 12:50:00 Memorial Vin Systolic (mm Hg) 2020-12-24 15:43:00 Mendoza rial Boron Diastolic (mm Hg) 2020-12-24 15:43:00 Mem orial Boron Heart Rate 2020-12-24 15:43:00 Memorial [place] Height 2020-12-24 15:43:00 154.94 cm [facility] [place] Weight 2020-12-24 15:43:00 Memorial Vin BMI Calculated 2020-12-24 15:43:00 Memori al [place] Systolic (mm Hg) 2016-07-30 14:00:00 Mendoza rial Vin Diastolic (mm Hg) 2016-07-30 14:00:00 Mem orial Boron Respitory Rate 2016-07-30 14:00:00 Memori al [place] Heart Rate 2016-07-30 14:00:00 Memorial [place] Temperature Oral (F) 2016-07-30 14:00:00 97.4 F Memorial Vin Systolic (mm Hg) 2016-07-30 10:45:00 Mendoza rial Boron Diastolic (mm Hg) 2016-07-30 10:45:00 Mem orial Bor[place] Heart Rate 2016-07-30 10:45:00 Memorial Vin Temperature Oral (F) 2016-07-30 10:45:00 97.2 F Memorial [place] Respitory Rate 2016-07-30 10:45:00 Memori al Vin Heart Rate 2016-07-30 06:35:00 Memorial Vin Temperature Oral (F) 2016-07-30 06:35:00 97.0 F Memorial [place] Respitory Rate 2016-07-30 06:35:00 Memori al Vin Systolic (mm Hg) 2016-07-30 06:35:00 Mendoza rial Vin Diastolic (mm Hg) 2016-07-30 06:35:00 Mem orial Vin Weight 2016-07-24 02:13:00 Memorial [place] BMI Calculated 2016-07-24 02:13:00 Memori al Vin Height 2016-07-24 02:13:00 160.02 cm Memorial Vin Respitory Rate 2016-06-15 15:00:00 Memori al [place] Systolic (mm Hg) 2016-06-15 15:00:00 Mendoza rial Vin Diastolic (mm Hg) 2016-06-15 15:00:00 Mem orial Vin Respitory Rate 2016-06-15 14:00:00 Memori al [place] Systolic (mm Hg) 2016-06-15 14:00:00 Mendoza rial Vin Diastolic (mm Hg) 2016-06-15 14:00:00 Mem orial Vin Respitory Rate 2016-06-15 13:29:00 Memori al Vin Systolic (mm Hg) 2016-06-15 13:29:00 Mendoza rial Boron Diastolic (mm Hg) 2016-06-15 13:29:00 Mem orial Vin Temperature Oral (F) 2016-06-14 10:56:00 97.1 F Memorial Vin Temperature Oral (F) 2016-06-14 06:55:00 97.1 F Memorial Vin Temperature Oral (F) 2016-06-12 10:00:00 96.8 F Memorial Vin Weight 2016-06-11 04:25:00 [facility] [place] Height 2016-06-11 04:25:00 160.02 cm Memorial Vin BMI Calculated 2016-06-11 04:25:00 Memori al Vin Heart Rate 2016-06-11 02:04:00 [facility] [place] Heart Rate 2016-06-11 00:00:00 [facility] [place] Heart Rate 2016-06-10 20:30:00 Memorial Vin Weight 2016-06-10 16:04:00 [facility] [place] BMI Calculated 2016-06-10 16:04:00 Memori al [place] Height 2016-06-10 16:04:00 160.02 cm [facility] [place] Temperature Oral (F) 2014-06-26 15:12:00 98.0 F [facility] [place] Systolic (mm Hg) 2014-06-26 15:12:00 Mendoza rial Boron Heart Rate 2014-06-26 15:12:00 Memorial Vin Diastolic (mm Hg) 2014-06-26 15:12:00 Mem orial Vin Respitory Rate 2014-06-26 15:12:00 Memori al [place] Systolic (mm Hg) 2014-06-26 13:53:00 Mendoza rial Vin Diastolic (mm Hg) 2014-06-26 13:53:00 Mem orial Boron Respitory Rate 2014-06-26 13:53:00 Memori al [place] Temperature Oral (F) 2014-06-26 13:53:00 98.0 F Memorial Vin Temperature Oral (F) 2014-06-26 12:37:00 98.2 F Memorial Vin Respitory Rate 2014-06-26 12:37:00 Memori al [place] Systolic (mm Hg) 2014-06-26 12:37:00 Mendoza rial Vin Diastolic (mm Hg) 2014-06-26 12:37:00 Mem orial [place] Heart Rate 2014-06-26 09:21:00 Memorial [place] Heart Rate 2014-06-26 06:08:00 Memorial Vin Height 2014-06-26 05:35:00 154.94 cm Memorial Vin Weight 2014-06-26 05:35:00 Memorial Vin BMI Calculated 2014-06-26 05:35:00 Memori al [place] Respitory Rate 2013-04-15 06:10:00 Memori al [place] Diastolic (mm Hg) 2013-04-15 06:10:00 Mem orial Vin Heart Rate 2013-04-15 06:10:00 [facility] [place] Systolic (mm Hg) 2013-04-15 06:10:00 Mendoza rial Boron Temperature Oral (F) 2013-04-15 06:10:00 98.7 F Memorial Vin Respitory Rate 2013-04-15 05:37:00 Memori al [place] Diastolic (mm Hg) 2013-04-15 05:37:00 Mem orial [place] Systolic (mm Hg) 2013-04-15 05:37:00 Mendoza rial Vin Temperature Oral (F) 2013-04-15 05:37:00 98.2 F Memorial [place] Heart Rate 2013-04-15 05:37:00 Memorial Vin Height 2013-04-15 02:06:00 160.02 cm [facility] [place] Weight 2013-04-15 02:06:00 [facility] [place] Temperature Oral (F) 2013-04-15 02:06:00 98.6 F Memorial Vin Respitory Rate 2013-04-15 02:06:00 Memori al [place] Heart Rate 2013-04-15 02:06:00 Memorial Vin Diastolic (mm Hg) 2013-04-15 02:06:00 Mem orial Vin Systolic (mm Hg) 2013-04-15 02:06:00 Mendoza rial Boron Weight 2012-03-14 21:33:00 [facility] [place] Systolic (mm Hg) 2011-12-01 00:33:00 Mendoza rial Vin Respitory Rate 2011-12-01 00:33:00 Memori al [place] Heart Rate 2011-12-01 00:33:00 Memorial Vin Diastolic (mm Hg) 2011-12-01 00:33:00 Mem orial Vin Temperature Oral (F) 2011-12-01 00:33:00 99.6 F Memorial Vin Diastolic (mm Hg) 2011-11-30 21:00:00 Mem orial Vin Heart Rate 2011-11-30 21:00:00 [facility] [place] Respitory Rate 2011-11-30 21:00:00 Memori al Vin Systolic (mm Hg) 2011-11-30 21:00:00 Mendoza rial Boron Temperature Oral (F) 2011-11-30 21:00:00 99.8 F [facility] [place] Respitory Rate 2011-11-30 16:30:00 Memori al [place] Systolic (mm Hg) 2011-11-30 16:30:00 Mendoza rial Vin Diastolic (mm Hg) 2011-11-30 16:30:00 Mem orial [place] Heart Rate 2011-11-30 16:30:00 [facility] [place] Temperature Oral (F) 2011-11-30 16:30:00 99.8 F [facility] [place] Weight 2011-11-29 11:40:00 [facility] [place] Height 2011-11-29 11:40:00 157.48 cm [facility] [place] Weight 2011-11-28 17:16:00 [facility] [place] Weight 2011-09-18 13:30:00 Memorial Vin Height 2011-09-18 13:30:00 154.94 cm [facility] [place] Heart Rate 2011-09-09 13:31:00 [facility] [place] Systolic (mm Hg) 2011-09-09 13:02:00 Mendoza rial Vin Diastolic (mm Hg) 2011-09-09 13:02:00 Mem orial [place] Respitory Rate 2011-09-09 13:02:00 Memori al [place] Temperature Oral (F) 2011-09-09 13:02:00 97.5 F [facility] [place] Diastolic (mm Hg) 2011-09-09 08:00:00 Mem orial Vin Heart Rate 2011-09-09 08:00:00 [facility] [place] Temperature Oral (F) 2011-09-09 08:00:00 98.6 F Memorial Vin Respitory Rate 2011-09-09 08:00:00 Memori al Vin Systolic (mm Hg) 2011-09-09 08:00:00 Mendoza rial Vin Respitory Rate 2011-09-09 04:55:00 Memori al Vin Diastolic (mm Hg) 2011-09-09 04:55:00 Mem orial [place] Systolic (mm Hg) 2011-09-09 04:55:00 Mendoza rial Boron Heart Rate 2011-09-09 04:55:00 [facility] [place] Temperature Oral (F) 2011-09-09 00:55:00 98.7 F [facility] [place] Weight 2011-09-01 19:59:00 [facility] [place] Height 2011-09-01 19:59:00 154.94 cm Memorial Vin Height 2011-09-01 07:01:00 154.94 cm [facility] [place] Weight 2011-09-01 07:01:00 [facility] [place] Respitory Rate 2011-08-23 18:00:00 Memori al [place] Heart Rate 2011-08-23 18:00:00 [facility] [place] Systolic (mm Hg) 2011-08-23 18:00:00 Mendoza rial Boron Diastolic (mm Hg) 2011-08-23 18:00:00 Mem orial [place] Temperature Oral (F) 2011-08-23 18:00:00 97.7 F Memorial Vin Heart Rate 2011-08-23 14:24:00 Memorial Vin Temperature Oral (F) 2011-08-23 14:24:00 98.2 F Memorial Vin Diastolic (mm Hg) 2011-08-23 14:24:00 Mem orial Vin Systolic (mm Hg) 2011-08-23 14:24:00 Mendoza rial Boron Respitory Rate 2011-08-23 14:24:00 Memori al Vin Systolic (mm Hg) 2011-08-23 11:15:00 Mendoza rial Vin Diastolic (mm Hg) 2011-08-23 11:15:00 Mem orial [place] Temperature Oral (F) 2011-08-23 11:00:00 98.3 F [facility] Heart Rate 2011-08-23 11:00:00 [facility] [place] Respitory Rate 2011-08-22 22:00:00 [facility] Height 2011-08-20 09:12:00 154.94 cm [facility] Weight 2011-08-20 09:12:00 [facility] Height 2011-08-19 20:28:00 154.94 cm [facility] Vni Weight 2011-08-19 20:28:00 [facility] Procedures Procedure Date / Time Performed Performing Clinician [facility] Emergency department visit 2013-04-15 05:00:00 M yanet Banuelos for the evaluation and management of a [...] procedure) Therapeutic, prophylactic, 2013-04-15 05:00:00 [facility] [place] or diagnostic injection (specify substance or drug); intravenous push, single or initial substance/drug Eye procedure [facility] Colonoscopy [facility] EGD [facility] (esophagogastroduodenoscop y) gastric outlet reduction section [facility] Jake n Tubal ligation [facility] 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 2021-05-30 Preadmit nullFlavo [id number] [facility] 06:06:43 [place] [facility] [place] 2021-05-30 Outpatient nullFlavo [facility] [id number] [facility] 06:06:43 r Medical [address] [facility] 2021-06-24 2021-06-24 Outpatient Deshazo_T [facility] [id number] [facility] 05:31:00 05:31:00 0104 [facility] 2021-06-04 2021-06-18 Inpatient CASTILLO GOYAL [facility] [id number] [place] 00:00:00 00:00:[address] 2021-05-28 2021-05-28 Outpatient Adams_R [facility] G [id number] [facility] 05:00:00 05:00:00 1208 [facility] 2021-05-26 2021-05-26 Outpatient Adams_R [facility] G [id number] [facility] 03:30:00 03:30:00 1206 [facility] 2021-05-19 2021-05-25 Inpatient E, [facility] [id number] [place] [address] 00:00:00 00:00:00 LATRICE [address] 2021-05-21 2021-05-21 Outpatient DMG DMG [id number] [facility] 03:30:00 03:30:00 1201 [facility] 2021-05-12 2021-05-12 Outpatient RAVIN YOU [facility] [id number] [place] 00:00:00 00:00:[address] 2021-05-12 2021-05-12 Outpatient RAVIN YOU [facility] [id number] [place] 00:00:00 00:00:[address] 2021-05-05 2021-05-05 Outpatient RAVIN YOU [facility] [id number] [place] 00:00:00 00:00:[address] 2021-03-21 2021-03-21 Outpatient DMG DMG [id number] [facility] 08:01:00 08:01:00 1001 [facility] l [facility] 2021-01-21 2021-01-29 [facility] [id number] [facility] 15:50:00 20:14:[address] 2021-01-21 2021-01-29 Inpatient U AYDEE, [facility] CAR 7512 [facility] 10:50:00 15:14:00 AKUA 2021-01-24 2021-01-24 Outpatient DMG DMG [id number] [facility] 08:00:00 08:00:00 0806 [facility] l [facility] 2021-01-03 2021-01-03 Office DOMINIQUE Diane [id number] [place] 07:44:43 09:30:54 Visit Alexandr ALTMAN [id number] H [facility] MEDICAL 9.2.7.2.686 BUILDING [id number] 1 2021-01-03 2021-01-03 Office DOMINIQUE Diane 1.2.840.114 [id number] 07:44:43 09:30:54 Visit Alexandr NESSAROSALIE [id number] MEDICAL 9.2.7.2.686 BUILDING [id number] 2020-12-24 2020-12-25 Outpatient nullFlavo [facility] [id number] Memoria 15:32:00 04:59:00 r Disease [address] [place], [place] [address]ann 2020-12-24 2020-12-24 Outpatient PHILIPPE, [facility] 7511 [facility] 10:32:00 23:59:00 AMES 2020-10-27 2020-10-27 Letter Lamin [facility] [id number] 00:00:00 00:00:00 (Out) Oz Lehman [id number] Loyal 4.2.7.2.686 Professio [phone] nal [address] [facility] 2020-10-24 2020-10-24 Orders Doctor JOANNA 1.2.840.114 [id number] 00:00:00 00:00:00 Only Unassigned, MAGDALENO [id number] [place] [facility] 4.2.7.2.686 [id number] 2020-09-24 2020-09-24 Refill Carlos [facility] 1.2.840.114 [id number] 00:00:00 00:00:00 Jose Luis Lemhan [id number] Loyal 4.2.7.2.686 Professio [id number] [facility] [address] [facility] 2020-09-09 2020-09-09 Patient Daniel [facility] 1.2.840.114 [id number] 00:00:00 00:00:00 Outreach Earl PRIMARY [id number] Manuel CARE 4.2.7.2.686 PAVILLION [id number] 2020-07-23 2020-07-23 Office Black [facility] [id number] 13:31:20 14:37:36 Visit Deja PRIMARY [id number] A CARE 4.2.7.2.686 PAVILLION [id number] 2020-06-27 2020-06-27 Office Lamin [facility] 1.2.840.114 [id number] Univers 10:05:43 11:00:00 Visit Oz LEHMAN [id number] [facility] 4.2.7.2.686 [place] l[place]ardo PROFESSIO [id number] Nj dical NAL 059 [address] [facility] 2020-06-27 2020-06-27 Outpatient R LAMIN [facility] [id number] Univers 09:30:00 11:00:00 SENDIL ity of [facility] 2020-01-25 2020-01-31 Inpatient 1 Rei Waldron [facility] GPY [id number] 21:31:00 18:15:[address] [facility] 2016-07-24 2016-07-30 Inpatient nullFlavo [facility] [id number] Memoria 02:04:00 16:20:00 r Boron 10 [facility] 2016-06-10 2016-06-15 Inpatient nullFlavo [facility] [id number] Memoria 16:02:00 18:23:00 r Boron 09 [facility] 2014-06-26 2014-06-26 EC nullFlavo [facility] [id number] Mem[facility] 05:25:00 15:14:00 Emergency r Boron 08 [facility] 2013-04-14 2013-04-15 Emergency nullFlavo [id number] Mem[facility] 21:04:00 01:45:00 r [facility] 07 [facility] 2012-03-14 2012-03-14 Emergency nullFlavo [id number] Mem[facility] 16:32:00 22:39:00 r [facility] 04 [facility] 2011-11-28 2011-11-30 OU nullFlavo [facility] [id number] Memoria 12:16:00 20:40:00 r [facility] 03 [facility] 2011-09-18 2011-09-18 Emergency nullFlavo [facility] [id number] Memoria 08:23:00 13:34:00 r [facility] 02 [facility] 2011-09-01 2011-09-09 Inpatient nullFlavo [facility] [id number] Memoria 01:40:00 15:00:00 r [facility] 01 [facility] 2011-08-19 2011-08-23 Inpatient nullFlavo [facility] [id number] Memoria 14:25:00 15:28:00 r [facility] 00 [facility] Results Test Description Test Time Test Comments Results Result Comments Source SARS-CoV-2 (COVID-19) RNA [Presence] in Respiratory sp ecimen by 2021-06-15 19:37:44 EMANUEL with probe detection Test Item Value Reference Range Interpretation Comme nts SARS-CoV-2 (COVID-19) RNA [Presence] in Respiratory Not detected No t-Detected specimen by EMANUEL with probe detection (test code = 15464-0) 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 (test code = 99798-8) Whether the patient has symptoms related to condition of interest (test code = 90279-4) Patient was hospitalized because of this condition (test code = 51242-9) Whether the patient was admitted to intensive care unit (ICU) for condition of interest (test code = 18596-2) Whether patient resides in a congregate care setting (test code = 44384-2) SARS-CoV-2 (COVID-19) RNA [Presence] in Respiratory specimen by EMANUEL with probe [id number] 03:04:32 Test Item Value Reference Range Interpretation Comments SARS-CoV-2 (COVID-19) RNA Not detected Not-Detected [Presence] in Respiratory specimen by EMANUEL with probe detection (test code = 04120-4) 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 (test code = 94788-4) Whether the patient has symptoms related to condition of interest (test code = 12683-5) Patient was hospitalized because of this condition (test code = 41627-4) Whether the patient was admitted to intensive care unit (ICU) for condition of interest (test code = 74552-5) Whether patient resides in a congregate care setting (test code = 62545-0) SARS-CoV-2 (COVID-19) RNA [Presence] in Respiratory specimen by EMANUEL with probe [id number] 07:53:49 Test Item Value Reference Range Interpretation Comments SARS-CoV-2 (COVID-19) RNA Not detected Not-Detected [Presence] in Respiratory specimen by EMANUEL with probe detection (test code = 04708-9) 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 (test code = 96945-0) Whether the patient has symptoms related to condition of interest (test code = 27729-7) Patient was hospitalized because of this condition (test code = 77214-8) Whether the patient was admitted to intensive care unit (ICU) for condition of interest (test code = 99363-7) Whether patient resides in a congregate care setting (test code = 97866-3) CHEM [id number] 08:17:00 Test Item Value Reference Range Interpretation Comments Glucose Lvl (test code = Glucose Lvl) 94 70-99 [facility]2021-08-11 08:17:00 Test Item Value Reference Range Interpretation Comments BUN (test code = BUN) 27 7-22 [facility]2021-08-11 08:17:00 Test Item Value Reference Range Interpretation Comments Creatinine Lvl (test code = Creatinine 4.95 0.50-1.40 Lvl) [facility]2021-08-11 08:17:00 Test Item Value Reference Range Interpretation Comments Sodium Lvl (test code = Sodium Lvl) 136 135-145 [facility]2021-08-11 08:17:00 Test Item Value Reference Range Interpretation Comments Potassium Lvl (test code = Potassium 3.9 3.5-5.1 Lvl) [facility]2021-08-11 08:17:00 Test Item Value Reference Range Interpretation Comments Chloride Lvl (test code = Chloride Lvl) 103 95-109 [facility]2021-08-11 08:17:00 Test Item Value Reference Range Interpretation Comments CO2 (test code = CO2) 30 24-32 [facility]2021-08-11 08:17:00 Test Item Value Reference Range Interpretation Comments AGAP (test code = AGAP) 6.9 10.0-20.0 [facility]2021-08-11 08:17:00 Test Item Value Reference Range Interpretation Comments Calcium Lvl (test code = Calcium Lvl) 8.5 8.5-10.5 [facility]2021-08-11 08:17:00 Test Item Value Reference Range Interpretation Comments eGFR (test code = eGFR) 10 [facility]2021-08-11 08:17:00 Test Item Value Reference Range Interpretation Comments Phosphorus (test code = Phosphorus) 3.0 2.5-4.5 [facility]2021-08-11 08:17:00 Test Item Value Reference Range Interpretation Comments Magnesium Lvl (test code = Magnesium 2.4 1.8-2.4 Lvl) [facility]Z5578-42-24 08:17:00 Test Item Value Reference Range Interpretation Comments WBC (test code = WBC) 2.3 3.7-10.4 [facility] CenterYlqqqbtTENNIXTWGB9821-11-55 08:17:00 Test Item Value Reference Range Interpretation Comments RBC (test code = RBC) 2.65 4.20-5.40 [facility] CenterGekvywaHXSFTPAKXA2753-15-53 08:17:00 Test Item Value Reference Range Interpretation Comments Hgb (test code = Hgb) 7.9 12.0-16.0 [facility] CenterFmkhyvrPUDCDBMAFG9043-50-12 08:17:00 Test Item Value Reference Range Interpretation Comments Hct (test code = Hct) 24.0 36.0-48.0 [facility] CenterRmotyahGCXWASKREC4902-54-22 08:17:00 Test Item Value Reference Range Interpretation Comments MCV (test code = MCV) 90.6 80.0-98.0 [facility] CenterJhtnfsaICTAFRSHOG0337-79-93 08:17:00 Test Item Value Reference Range Interpretation Comments MCH (test code = MCH) 29.7 pg 27.0-31.0 [facility] CenterDhkeuerTULUPXZQPI9485-57-73 08:17:00 Test Item Value Reference Range Interpretation Comments MCHC (test code = MCHC) 32.7 32.0-36.0 [facility] CenterFfhddnnMFNWEKRMDM4884-56-00 08:17:00 Test Item Value Reference Range Interpretation Comments RDW (test code = RDW) 19.1 11.5-14.5 [facility] CenterOgdewzhDIDBQMVFRW6727-45-40 08:17:00 Test Item Value Reference Range Interpretation Comments Platelet (test code = Platelet) 71 133-450 [facility] CenterNymccddNRQYYPEIOY4618-45-72 08:17:00 Test Item Value Reference Range Interpretation Comments MPV (test code = MPV) 9.9 7.4-10.4 [facility] CenterBvsbvupVOAMFYVGBY1425-63-79 08:17:00 Test Item Value Reference Range Interpretation Comments Segs (test code = Segs) 56.1 45.0-75.0 [facility] CenterZbnboulUFNPZOGYOT4930-22-53 08:17:00 Test Item Value Reference Range Interpretation Comments Lymphocytes (test code = Lymphocytes) 28.9 20.0-40.0 [facility] CenterNduiuswRIGNTWZSIO0004-68-70 08:17:00 Test Item Value Reference Range Interpretation Comments Monocytes (test code = Monocytes) 8.1 2.0-12.0 [place] 274861-08-11 08:17:00 Test Item Value Reference Range Interpretation Comments Eosinophils (test code = 5.9 See_Comment [A utomated message] The Eosinophils) system which ge nerated this result tra nsmitted reference range : <=4.0. The reference r leo was not used to int erpret this result as normal/abnormal . [place] 274861-08-11 08:17:00 Test Item Value Reference Range Interpretation Comments Basophils (test code = 1.0 See_Comment [Aut omated message] The Basophils) system which ge nerated this result tra nsmitted reference range : <=1.0. The reference r leo was not used to int erpret this result as normal/abnormal . [facility] CenterRrmpcowIBBONHOMYA6122-93-05 08:17:00 Test Item Value Reference Range Interpretation Comments Neutrophils # (test code = Neutrophils 1.3 1.5-8.1 #) [facility] CenterIjptphoZLFSFXYPYJ1790-89-68 08:17:00 Test Item Value Reference Range Interpretation Comments Lymphocytes # (test code = Lymphocytes 0.7 1.0-5.5 #) [place] 274861-08-11 08:17:00 Test Item Value Reference Range Interpretation Comments Monocytes # (test code 0.2 See_Comment [Aut omated message] The = Monocytes #) system which generated this result tra nsmitted reference range : <=0.8. The reference r leo was not used to int erpret this result as normal/abnormal . [facility] CenterPqeaitfVFNQJVFSFN3719-05-82 08:17:00 Test Item Value Reference Range Interpretation Comments Eosinophils # (test code 0.1 See_Comment [A utomated message] The = Eosinophils #) system whic h generated this result tra nsmitted reference range : <=0.5. The reference r leo was not used to int erpret this result as normal/abnormal . [facility] HospitalTruQu RDBDC0551-52-30 09:30:00 Test Item Value Reference Range Interpretation Comments Glucose Lvl (test code = Glucose Lvl) 61 70-99 [facility] HospitalTru[facility] ZJGBL5692-96-30 09:30:00 Test Item Value Reference Range Interpretation Comments BUN (test code = BUN) 13 7-22 [facility]Tru[facility] LBGUK4301-11-86 09:30:00 Test Item Value Reference Range Interpretation Comments Creatinine Lvl (test code = Creatinine 3.71 0.50-1.40 Lvl) [place] 487881-08-10 09:30:00 Test Item Value Reference Range Interpretation Comments Sodium Lvl (test code = Sodium Lvl) 136 135-145 [place] 487881-08-10 09:30:00 Test Item Value Reference Range Interpretation Comments Potassium Lvl (test code = Potassium 4.3 3.5-5.1 Lvl) [place] 487881-08-10 09:30:00 Test Item Value Reference Range Interpretation Comments Chloride Lvl (test code = Chloride Lvl) 103 95-109 [place] 487881-08-10 09:30:00 Test Item Value Reference Range Interpretation Comments CO2 (test code = CO2) 27 24-32 [place] 487881-08-10 09:30:00 Test Item Value Reference Range Interpretation Comments Calcium Lvl (test code = Calcium Lvl) 7.9 8.5-10.5 [place] 487881-08-10 09:30:00 Test Item Value Reference Range Interpretation Comments AGAP (test code = AGAP) 10.3 10.0-20.0 [place] 487881-08-10 09:30:00 Test Item Value Reference Range Interpretation Comments eGFR (test code = eGFR) 15 [place] 487881-08-10 09:30:00 Test Item Value Reference Range Interpretation Comments Magnesium Lvl (test code = Magnesium 2.3 1.8-2.4 Lvl) [place] 487881-08-10 09:30:00 Test Item Value Reference Range Interpretation Comments Phosphorus (test code = Phosphorus) 3.1 2.5-4.5 [place] 274861-08-10 09:30:00 Test Item Value Reference Range Interpretation Comments Segs (test code = Segs) 61.5 45.0-75.0 [place] [address]-08-10 09:30:00 Test Item Value Reference Range Interpretation Comments Lymphocytes (test code = Lymphocytes) 24.6 20.0-40.0 [place] [address]-08-10 09:30:00 Test Item Value Reference Range Interpretation Comments Monocytes (test code = Monocytes) 7.4 2.0-12.0 [place] 274861-08-10 09:30:00 Test Item Value Reference Range Interpretation Comments Eosinophils (test code = 5.5 See_Comment [A utomated message] The Eosinophils) system which ge nerated this result tra nsmitted reference range : <=4.0. The reference r leo was not used to int erpret this result as normal/abnormal . [place] 274861-08-10 09:30:00 Test Item Value Reference Range Interpretation Comments Basophils (test code = 1.0 See_Comment [Aut omated message] The Basophils) system which ge nerated this result tra nsmitted reference range : <=1.0. The reference r leo was not used to int erpret this result as normal/abnormal . [place] 274861-08-10 09:30:00 Test Item Value Reference Range Interpretation Comments Neutrophils # (test code = Neutrophils 1.6 1.5-8.1 #) [place] 274861-08-10 09:30:00 Test Item Value Reference Range Interpretation Comments Lymphocytes # (test code = Lymphocytes 0.6 1.0-5.5 #) [place] 274861-08-10 09:30:00 Test Item Value Reference Range Interpretation Comments Monocytes # (test code 0.2 See_Comment [Aut omated message] The = Monocytes #) system which generated this result tra nsmitted reference range : <=0.8. The reference r leo was not used to int erpret this result as normal/abnormal . [facility] CenterKxiucxmJHAJTEZCCO9464-04-94 09:30:00 Test Item Value Reference Range Interpretation Comments Eosinophils # (test code 0.1 See_Comment [A utomated message] The = Eosinophils #) system whic h generated this result tra nsmitted reference range : <=0.5. The reference r leo was not used to int erpret this result as normal/abnormal . [place] 274861-08-10 09:30:00 Test Item Value Reference Range Interpretation Comments PB Smear Path Peripheral blood smear shows (test code = PB normocytic normochromic Smear Path) anemia with mild to moderate anisopoikilocytosis, slight polychromasia, rare nucleated RBCs. The white blood cells are reduced in number with rare left-shifted forms present, no blasts seen. The platelets are reduced in number with unremarkable morphology. Impression: There is no morphologic evidence of microangiopathic hemolytic anemia. Pancytopenia can be secondary to medications, chronic diseases, infectious diseases, autoimmune conditions or malignancies. Clinical correlation and further diagnostic studies, if clinically indicated, are recommended. CPT: 09308 [facility] CenterMwjgleqPRAOAMBNDQ3768-32-94 09:30:00 Test Item Value Reference Range Interpretation Comments WBC (test code = WBC) 2.5 3.7-10.4 [facility] CenterJdtuqagJWRAGOKVYT4365-65-54 09:30:00 Test Item Value Reference Range Interpretation Comments RBC (test code = RBC) 2.68 4.20-5.40 [place] 274861-08-10 09:30:00 Test Item Value Reference Range Interpretation Comments Hgb (test code = Hgb) 8.2 12.0-16.0 [place] 274861-08-10 09:30:00 Test Item Value Reference Range Interpretation Comments Hct (test code = Hct) 24.3 36.0-48.0 [facility] CenterKceygkyTPPPIIIIWE7843-49-33 09:30:00 Test Item Value Reference Range Interpretation Comments MCV (test code = MCV) 90.9 80.0-98.0 [facility] CenterNfmybqiOHKCAWGFLD7653-52-04 09:30:00 Test Item Value Reference Range Interpretation Comments MCH (test code = MCH) 30.5 pg 27.0-31.0 [place] 274861-08-10 09:30:00 Test Item Value Reference Range Interpretation Comments MCHC (test code = MCHC) 33.6 32.0-36.0 [facility] CenterGbkwfemAUQWXVNDFY3202-07-64 09:30:00 Test Item Value Reference Range Interpretation Comments RDW (test code = RDW) 19.4 11.5-14.5 [place] 274861-08-10 09:30:00 Test Item Value Reference Range Interpretation Comments Platelet (test code = Platelet) 70 133-450 [facility] CenterXazvqemTMMQJJVUSI5944-29-38 09:30:00 Test Item Value Reference Range Interpretation Comments MPV (test code = MPV) 10.7 7.4-10.4 [facility]2021-08-09 05:10:00 Test Item Value Reference Range Interpretation Comments Glucose Lvl (test code = Glucose Lvl) 69 70-99 [place] 487881-08-09 05:10:00 Test Item Value Reference Range Interpretation Comments BUN (test code = BUN) 29 7-22 [place] 487881-08-09 05:10:00 Test Item Value Reference Range Interpretation Comments Creatinine Lvl (test code = Creatinine 5.14 0.50-1.40 Lvl) [place] 487881-08-09 05:10:00 Test Item Value Reference Range Interpretation Comments Sodium Lvl (test code = Sodium Lvl) 134 135-145 [place] 487881-08-09 05:10:00 Test Item Value Reference Range Interpretation Comments Potassium Lvl (test code = Potassium 5.1 3.5-5.1 Lvl) [place] 487881-08-09 05:10:00 Test Item Value Reference Range Interpretation Comments Chloride Lvl (test code = Chloride Lvl) 98 95-109 [place] 487881-08-09 05:10:00 Test Item Value Reference Range Interpretation Comments CO2 (test code = CO2) 29 24-32 [place] 487881-08-09 05:10:00 Test Item Value Reference Range Interpretation Comments Calcium Lvl (test code = Calcium Lvl) 7.6 8.5-10.5 [place] 487881-08-09 05:10:00 Test Item Value Reference Range Interpretation Comments AGAP (test code = AGAP) 12.1 10.0-20.0 [place] 487881-08-09 05:10:00 Test Item Value Reference Range Interpretation Comments eGFR (test code = eGFR) 10 [place] 487881-08-09 05:10:00 Test Item Value Reference Range Interpretation Comments Magnesium Lvl (test code = Magnesium 2.3 1.8-2.4 Lvl) [place] 487881-08-09 05:10:00 Test Item Value Reference Range Interpretation Comments Phosphorus (test code = Phosphorus) 5.0 2.5-4.5 [place] 274861-08-09 05:10:00 Test Item Value Reference Range Interpretation Comments WBC (test code = WBC) 2.7 3.7-10.4 [place] 274861-08-09 05:10:00 Test Item Value Reference Range Interpretation Comments RBC (test code = RBC) 2.80 4.20-5.40 [facility] CenterYnxlyxrVLFFJWPQVA2297-23-37 05:10:00 Test Item Value Reference Range Interpretation Comments Hgb (test code = Hgb) 8.5 12.0-16.0 [place] 274861-08-09 05:10:00 Test Item Value Reference Range Interpretation Comments Hct (test code = Hct) 25.7 36.0-48.0 [facility] CenterBldwozgRMEBGKGFPT6360-22-14 05:10:00 Test Item Value Reference Range Interpretation Comments MCV (test code = MCV) 91.7 80.0-98.0 [facility] CenterNvzlevjTRLCOWSQYH1877-43-92 05:10:00 Test Item Value Reference Range Interpretation Comments MCH (test code = MCH) 30.4 pg 27.0-31.0 [facility] CenterMfwqqihPYDKPMVBNX6751-96-23 05:10:00 Test Item Value Reference Range Interpretation Comments MCHC (test code = MCHC) 33.1 32.0-36.0 [facility] CenterPtgyjqhGLFSRQLJJX8971-67-16 05:10:00 Test Item Value Reference Range Interpretation Comments RDW (test code = RDW) 19.2 11.5-14.5 [place] 274861-08-09 05:10:00 Test Item Value Reference Range Interpretation Comments Platelet (test code = Platelet) 72 133-450 [facility] CenterLhlsjypDIPDVSBTAW2926-87-50 05:10:00 Test Item Value Reference Range Interpretation Comments MPV (test code = MPV) 9.9 7.4-10.4 [place] 274861-08-09 05:10:00 Test Item Value Reference Range Interpretation Comments Segs (test code = Segs) 72.6 45.0-75.0 [place] 274861-08-09 05:10:00 Test Item Value Reference Range Interpretation Comments Lymphocytes (test code = Lymphocytes) 15.9 20.0-40.0 [place] 274861-08-09 05:10:00 Test Item Value Reference Range Interpretation Comments Monocytes (test code = Monocytes) 7.3 2.0-12.0 [place] 274861-08-09 05:10:00 Test Item Value Reference Range Interpretation Comments Eosinophils (test code = 3.4 See_Comment [A utomated message] The Eosinophils) system which ge nerated this result tra nsmitted reference range : <=4.0. The reference r leo was not used to int erpret this result as normal/abnormal . [facility] CenterMqcwlmmGBOHHGKODK6426-37-14 05:10:00 Test Item Value Reference Range Interpretation Comments Basophils (test code = 0.8 See_Comment [Aut omated message] The Basophils) system which ge nerated this result tra nsmitted reference range : <=1.0. The reference r leo was not used to int erpret this result as normal/abnormal . [facility] CenterNnuhcmbJJRUYFZEAK4562-69-66 05:10:00 Test Item Value Reference Range Interpretation Comments Neutrophils # (test code = Neutrophils 1.9 1.5-8.1 #) [facility] CenterMhxfgrbIKRAUJTRUA8713-15-86 05:10:00 Test Item Value Reference Range Interpretation Comments Lymphocytes # (test code = Lymphocytes 0.4 1.0-5.5 #) [facility] CenterZfhqzrfVRHDWPCRUG0666-39-17 05:10:00 Test Item Value Reference Range Interpretation Comments Monocytes # (test code 0.2 See_Comment [Aut omated message] The = Monocytes #) system which generated this result tra nsmitted reference range : <=0.8. The reference r leo was not used to int erpret this result as normal/abnormal . [facility] Cent[id number] 05:10:00 Test Item Value Reference Range Interpretation Comments Eosinophils # (test code 0.1 See_Comment [A utomated message] The = Eosinophils #) system whic h generated this result tra nsmitted reference range : <=0.5. The reference r leo was not used to int erpret this result as normal/abnormal . [facility] [id number] 05:10:00 Test Item Value Reference Range Interpretation Comments Ca Ion WB (test code = Ca Ion WB) 1.10 1.05-1.25 [facility] [id number] 05:10:00 Test Item Value Reference Range Interpretation Comments Ca Norm WB (test code = Ca Norm WB) 1.06 1.05-1.25 [facility]MOLE[facility] [id number] 18:36:00 Test Item Value Reference Range Interpretation Comments C difficile DNA (test Negative (01/26/21 1:36 code = C difficile DNA) PM) [facility]ATH[facility] [id number] 07:33:00 Test Item Value Reference Range Interpretation Comments Ca Ion WB (test code = Ca Ion WB) 1.12 1.05-1.25 [facility]ATHY[facility]ID [id number] 07:33:00 Test Item Value Reference Range Interpretation Comments Ca Norm WB (test code = Ca Norm WB) 1.07 1.05-1.25 [facility] [id number] 07:30:00 Test Item Value Reference Range Interpretation Comments Glucose Lvl (test code = Glucose Lvl) 65 70-99 [place] 487881-08-08 07:30:00 Test Item Value Reference Range Interpretation Comments BUN (test code = BUN) 21 7-22 [place] 487881-08-08 07:30:00 Test Item Value Reference Range Interpretation Comments Creatinine Lvl (test code = Creatinine 4.18 0.50-1.40 Lvl) [facility] HospitalpaOndeDIANA [facility] [id number] 07:30:00 Test Item Value Reference Range Interpretation Comments Sodium Lvl (test code = Sodium Lvl) 136 135-145 [facility] HospitalTru[facility] [id number] 07:30:00 Test Item Value Reference Range Interpretation Comments Potassium Lvl (test code = Potassium 4.5 3.5-5.1 Lvl) [facility] [id number] 07:30:00 Test Item Value Reference Range Interpretation Comments Chloride Lvl (test code = Chloride Lvl) 99 95-109 [facility]2021-08-08 07:30:00 Test Item Value Reference Range Interpretation Comments CO2 (test code = CO2) 31 24-32 [facility] [id number] 07:30:00 Test Item Value Reference Range Interpretation Comments AGAP (test code = AGAP) 10.5 10.0-20.0 [facility] [id number] 07:30:00 Test Item Value Reference Range Interpretation Comments Calcium Lvl (test code = Calcium Lvl) 7.9 8.5-10.5 [place] 487881-08-08 07:30:00 Test Item Value Reference Range Interpretation Comments eGFR (test code = eGFR) 13 [place] 487881-08-08 07:30:00 Test Item Value Reference Range Interpretation Comments Magnesium Lvl (test code = Magnesium 2.2 1.8-2.4 Lvl) [facility]2021-08-08 07:30:00 Test Item Value Reference Range Interpretation Comments Phosphorus (test code = Phosphorus) 4.4 2.5-4.5 [place] 274861-08-08 07:30:00 Test Item Value Reference Range Interpretation Comments WBC (test code = WBC) 2.3 3.7-10.4 [place] 274861-08-08 07:30:00 Test Item Value Reference Range Interpretation Comments RBC (test code = RBC) 2.88 4.20-5.40 [place] 274861-08-08 07:30:00 Test Item Value Reference Range Interpretation Comments Hgb (test code = Hgb) 8.6 12.0-16.0 [place] 274861-08-08 07:30:00 Test Item Value Reference Range Interpretation Comments Hct (test code = Hct) 26.6 36.0-48.0 [place] 274861-08-08 07:30:00 Test Item Value Reference Range Interpretation Comments MCV (test code = MCV) 92.2 80.0-98.0 [place] 274861-08-08 07:30:00 Test Item Value Reference Range Interpretation Comments MCH (test code = MCH) 29.8 pg 27.0-31.0 [place] 274861-08-08 07:30:00 Test Item Value Reference Range Interpretation Comments MCHC (test code = MCHC) 32.4 32.0-36.0 [place] 274861-08-08 07:30:00 Test Item Value Reference Range Interpretation Comments RDW (test code = RDW) 19.7 11.5-14.5 [place] 274861-08-08 07:30:00 Test Item Value Reference Range Interpretation Comments Platelet (test code = Platelet) 83 133-450 [facility] CenterSjgpkmrJOCDZXCOQS1147-03-37 07:30:00 Test Item Value Reference Range Interpretation Comments MPV (test code = MPV) 10.2 7.4-10.4 [place] 274861-08-08 07:30:00 Test Item Value Reference Range Interpretation Comments Segs (test code = Segs) 64.0 45.0-75.0 [place] 274861-08-08 07:30:00 Test Item Value Reference Range Interpretation Comments Lymphocytes (test code = Lymphocytes) 24.1 20.0-40.0 [place] 274861-08-08 07:30:00 Test Item Value Reference Range Interpretation Comments Monocytes (test code = Monocytes) 7.0 2.0-12.0 [place] 274861-08-08 07:30:00 Test Item Value Reference Range Interpretation Comments Eosinophils (test code = 3.7 See_Comment [A utomated message] The Eosinophils) system which ge nerated this result tra nsmitted reference range : <=4.0. The reference r leo was not used to int erpret this result as normal/abnormal . [place] 274861-08-08 07:30:00 Test Item Value Reference Range Interpretation Comments Basophils (test code = 1.2 See_Comment [Aut omated message] The Basophils) system which ge nerated this result tra nsmitted reference range : <=1.0. The reference r leo was not used to int erpret this result as normal/abnormal . [facility] CenterCiahdxxHQDJQCCBAP5975-74-15 07:30:00 Test Item Value Reference Range Interpretation Comments Neutrophils # (test code = Neutrophils 1.5 1.5-8.1 #) [place] 274861-08-08 07:30:00 Test Item Value Reference Range Interpretation Comments Lymphocytes # (test code = Lymphocytes 0.6 1.0-5.5 #) [place] 274861-08-08 07:30:00 Test Item Value Reference Range Interpretation Comments Monocytes # (test code 0.2 See_Comment [Aut omated message] The = Monocytes #) system which generated this result tra nsmitted reference range : <=0.8. The reference r leo was not used to int erpret this result as normal/abnormal . [facility] CenterAbmamkxOTTRMDBVSS8976-77-70 07:30:00 Test Item Value Reference Range Interpretation Comments Eosinophils # (test code 0.1 See_Comment [A utomated message] The = Eosinophils #) system whic h generated this result tra nsmitted reference range : <=0.5. The reference r leo was not used to int erpret this result as normal/abnormal . [facility]2021-08-07 09:32:00 Test Item Value Reference Range Interpretation Comments Glucose Lvl (test code = Glucose Lvl) 59 70-99 [place] 487881-08-07 09:32:00 Test Item Value Reference Range Interpretation Comments BUN (test code = BUN) 11 7-22 [place] 487881-08-07 09:32:00 Test Item Value Reference Range Interpretation Comments Creatinine Lvl (test code = Creatinine 2.75 0.50-1.40 Lvl) [place] 487881-08-07 09:32:00 Test Item Value Reference Range Interpretation Comments Sodium Lvl (test code = Sodium Lvl) 138 135-145 [place] 487881-08-07 09:32:00 Test Item Value Reference Range Interpretation Comments Potassium Lvl (test code = Potassium 4.1 3.5-5.1 Lvl) [place] 487881-08-07 09:32:00 Test Item Value Reference Range Interpretation Comments Chloride Lvl (test code = Chloride Lvl) 104 95-109 [place] 487881-08-07 09:32:00 Test Item Value Reference Range Interpretation Comments CO2 (test code = CO2) 29 24-32 [place] 487881-08-07 09:32:00 Test Item Value Reference Range Interpretation Comments Calcium Lvl (test code = Calcium Lvl) 8.3 8.5-10.5 [place] 487881-08-07 09:32:00 Test Item Value Reference Range Interpretation Comments AGAP (test code = AGAP) 9.1 10.0-20.0 [place] 487881-08-07 09:32:00 Test Item Value Reference Range Interpretation Comments eGFR (test code = eGFR) 21 [place] 487881-08-07 09:32:00 Test Item Value Reference Range Interpretation Comments Magnesium Lvl (test code = Magnesium 2.2 1.8-2.4 Lvl) [place] 487881-08-07 09:32:00 Test Item Value Reference Range Interpretation Comments Phosphorus (test code = Phosphorus) 3.9 2.5-4.5 [facility] MichiganBbsztpkXCNWSVXQZB1895-89-23 09:32:00 Test Item Value Reference Range Interpretation Comments WBC (test code = WBC) 2.3 3.7-10.4 [facility] CenterCvowuwnDDYLFPZCGM5516-30-03 09:32:00 Test Item Value Reference Range Interpretation Comments RBC (test code = RBC) 2.78 4.20-5.40 [facility] CenterTliaetrQHUFBSNAYG2449-96-98 09:32:00 Test Item Value Reference Range Interpretation Comments Hgb (test code = Hgb) 8.4 12.0-16.0 [facility] CenterDegphqqEQIJETWJNY0225-32-59 09:32:00 Test Item Value Reference Range Interpretation Comments Hct (test code = Hct) 25.2 36.0-48.0 [facility] CenterZgflhcpUTOOCIIZFU0745-32-83 09:32:00 Test Item Value Reference Range Interpretation Comments MCV (test code = MCV) 90.5 80.0-98.0 [facility] CenterSjxcmqnFVOCMYJGEG8355-73-09 09:32:00 Test Item Value Reference Range Interpretation Comments MCH (test code = MCH) 30.4 pg 27.0-31.0 [facility] CenterLrmqyraNJJBHIHTHF1526-78-04 09:32:00 Test Item Value Reference Range Interpretation Comments MCHC (test code = MCHC) 33.5 32.0-36.0 [facility] CenterVaqinzjHGPVANOFWM6137-35-70 09:32:00 Test Item Value Reference Range Interpretation Comments RDW (test code = RDW) 19.0 11.5-14.5 [facility] CenterOsqpsmhGXSXURSZHG8515-08-40 09:32:00 Test Item Value Reference Range Interpretation Comments Platelet (test code = Platelet) 87 133-450 [facility] CenterIftpltmUHFVRFUSWB0463-65-93 09:32:00 Test Item Value Reference Range Interpretation Comments MPV (test code = MPV) 10.0 7.4-10.4 [facility] HospitalTrendKite [id number] 05:33:00 Test Item Value Reference Range Interpretation Comments ABO/Rh (test code = ABO/Rh) B POS [facility] [employer] [id number] 05:33:00 Test Item Value Reference Range Interpretation Comments Antibody Scrn (test Negative (01/24/21 12:33 code = Antibody Scrn) AM) [facility] CenterHmuxnqtRJVTWVUFBU8092-35-21 05:33:00 Test Item Value Reference Range Interpretation Comments Segs (test code = Segs) 60.2 45.0-75.0 [place] 274861-08-06 05:33:00 Test Item Value Reference Range Interpretation Comments Lymphocytes (test code = Lymphocytes) 28.6 20.0-40.0 [place] 274861-08-06 05:33:00 Test Item Value Reference Range Interpretation Comments Monocytes (test code = Monocytes) 5.8 2.0-12.0 [place] 274861-08-06 05:33:00 Test Item Value Reference Range Interpretation Comments Eosinophils (test code = 4.2 See_Comment [A utomated message] The Eosinophils) system which ge nerated this result tra nsmitted reference range : <=4.0. The reference r leo was not used to int erpret this result as normal/abnormal . [place] 274861-08-06 05:33:00 Test Item Value Reference Range Interpretation Comments Basophils (test code = 1.2 See_Comment [Aut omated message] The Basophils) system which ge nerated this result tra nsmitted reference range : <=1.0. The reference r leo was not used to int erpret this result as normal/abnormal . [facility] CenterBegfevjUOHXNYLGRB8954-95-49 05:33:00 Test Item Value Reference Range Interpretation Comments Neutrophils # (test code = Neutrophils 2.2 1.5-8.1 #) [place] 274861-08-06 05:33:00 Test Item Value Reference Range Interpretation Comments Lymphocytes # (test code = Lymphocytes 1.1 1.0-5.5 #) [place] 274861-08-06 05:33:00 Test Item Value Reference Range Interpretation Comments Monocytes # (test code 0.2 See_Comment [Aut omated message] The = Monocytes #) system which generated this result tra nsmitted reference range : <=0.8. The reference r leo was not used to int erpret this result as normal/abnormal . [place] [address]-08-06 05:33:00 Test Item Value Reference Range Interpretation Comments Eosinophils # (test code 0.2 See_Comment [A utomated message] The = Eosinophils #) system whic h generated this result tra nsmitted reference range : <=0.5. The reference r leo was not used to int erpret this result as normal/abnormal . [facility] CenterVxeswodHBRDXYRFPQ6001-63-31 05:53:00 Test Item Value Reference Range Interpretation Comments PT (test code = PT) 14.4 s 12.0-14.7 [facility] CenterGfuxfzrPSZOYMWIHY8354-95-25 05:53:00 Test Item Value Reference Range Interpretation Comments INR (test code = INR) 1.13 1 0.85-1.17 [facility] CenterJyvkzonCPMMOMXYIY0870-56-82 05:53:00 Test Item Value Reference Range Interpretation Comments Fibrinogen Lvl (test code = Fibrinogen 319 230-510 Lvl) [facility] CenterUwmvzcpGYQZIQBSBD8483-43-00 05:53:00 Test Item Value Reference Range Interpretation Comments Thrombin Time (test code = Thrombin 15.9 s 15.0-21.2 Time) [facility] CenterGxxuvcwEVEBBITQXU3029-94-65 05:53:00 Test Item Value Reference Range Interpretation Comments PTT (test code = PTT) 47.0 s 22.9-35.8 [facility] CenterPwmnootRPZLOONOXA0915-25-00 05:53:00 Test Item Value Reference Range Interpretation Comments D-Dimer (test code = D-Dimer) 0.91 [facility] CenterRrqvbccOEMYKDBJOA7719-82-01 05:53:00 Test Item Value Reference Range Interpretation Comments Basophils # (test code 0.1 See_Comment [Aut omated message] The = Basophils #) system which generated this result tra nsmitted reference range : <=0.2. The reference r leo was not used to int erpret this result as normal/abnormal . [facility] CenterPARATHYROID [id number] 05:53:00 Test Item Value Reference Range Interpretation Comments Ca Ion WB (test code = Ca Ion WB) 1.24 1.05-1.25 [facility] HospitalpaOndePARATHYROID [id number] 05:53:00 Test Item Value Reference Range Interpretation Comments Ca Norm WB (test code = Ca Norm WB) 1.25 1.05-1.25 [facility] [employer] [id number] 10:09:00 Test Item Value Reference Range Interpretation Comments ALT (test code = ALT) 49 See_Comment [Auto mated message] The system which ge nerated this result transmit rohit reference range : <=65. The reference range was not used to interpr et this result as reji l/abnormal. [facility] 10:09:00 Test Item Value Reference Range Interpretation Comments Albumin Lvl (test code = Albumin Lvl) 2.8 3.5-5.0 [facility]2021-08-04 10:09:00 Test Item Value Reference Range Interpretation Comments Alk Phos (test code = Alk Phos) 41 39-136 [facility]2021-08-04 10:09:00 Test Item Value Reference Range Interpretation Comments Bili Direct (test code 0.2 See_Comment [Aut omated message] The = Bili Direct) system which generated this result tra nsmitted reference range : <=0.3. The reference r leo was not used to int erpret this result as reji l/abnormal. [facility] [id number] 10:09:00 Test Item Value Reference Range Interpretation Comments Bili Total (test code = Bili Total) 0.6 0.2-1.3 [facility] [id number] 10:09:00 Test Item Value Reference Range Interpretation Comments Bili Indirect (test 0.4 See_Comment [Automa rohit message] The code = Bili Indirect) system which generated this result tra nsmitted reference range : <=1.0. The reference r leo was not used to int erpret this result as normal/abnormal . [facility] [id number] 10:09:00 Test Item Value Reference Range Interpretation Comments Total Protein (test code = Total 5.6 6.4-8.4 Protein) [facility] [id number] 10:09:00 Test Item Value Reference Range Interpretation Comments AST (test code = AST) 33 See_Comment [Auto mated message] The system which ge nerated this result transmit rohit reference range : <=37. The reference range was not used to interpr et this result as reji l/abnormal. [facility] HospitalTruQu [id number] 10:09:00 Test Item Value Reference Range Interpretation Comments Globulin (test code = Globulin) 2.8 2.7-4.2 [facility] [id number] 10:09:00 Test Item Value Reference Range Interpretation Comments A/G Ratio (test code = A/G Ratio) 1.0 1 0.7-1.6 [facility] [id number] 10:09:00 Test Item Value Reference Range Interpretation Comments Amylase Lvl (test code = Amylase Lvl) 19 25-115 [facility] [id number] 10:09:00 Test Item Value Reference Range Interpretation Comments Lipase Lvl (test code = Lipase Lvl) no gt 05-393 [facility] MichiganDyowbshOYTMYLRLKP3644-93-75 10:09:00 Test Item Value Reference Range Interpretation Comments PTT (test code = PTT) 41.4 s 22.9-35.8 [facility] MichiganJmdthggGZVLQGYUCT1374-04-54 10:09:00 Test Item Value Reference Range Interpretation Comments PT (test code = PT) 15.4 s 12.0-14.7 [facility] CenterTjkxfgoZWVXNMDPLW0887-77-92 10:09:00 Test Item Value Reference Range Interpretation Comments INR (test code = INR) 1.24 1 0.85-1.17 [facility] MichiganRutqbaoEJOHIONOIT1054-10-60 10:09:00 Test Item Value Reference Range Interpretation Comments Fibrinogen Lvl (test code = Fibrinogen 312 230-510 Lvl) [facility] MichiganWvfpgdeTSHFNOZUOE8031-65-63 10:09:00 Test Item Value Reference Range Interpretation Comments Thrombin Time (test code = Thrombin 16.6 s 15.0-21.2 Time) [facility] CenterHlzrmslJQYXORHRYD3726-59-34 10:09:00 Test Item Value Reference Range Interpretation Comments D-Dimer (test code = D-Dimer) 4.91 [facility] CenterJwemobsHSCTOWIGKX6529-63-18 10:09:00 Test Item Value Reference Range Interpretation Comments Basophils # (test code 0.1 See_Comment [Aut omated message] The = Basophils #) system which generated this result tra nsmitted reference range : <=0.2. The reference r leo was not used to int erpret this result as normal/abnormal . [facility] [id number] 10:09:00 Test Item Value Reference Range Interpretation Comments Hgb A1C (test code = Hgb A1C) 5.6 [facility] [id number] 09:07:00 Test Item Value Reference Range Interpretation Comments Amylase Lvl (test code = Amylase Lvl) 4 25-115 [facility] MichiganDjbsaqyKPZLXVWJBE8838-18-09 09:07:00 Test Item Value Reference Range Interpretation Comments Thrombin Time (test code = Thrombin 18.0 s 15.0-21.2 Time) [facility] MichiganSttfqmaOVTOIMPBRU6435-13-11 09:07:00 Test Item Value Reference Range Interpretation Comments PT (test code = PT) 24.6 s 12.0-14.7 [facility] MichiganBsjziloIQKLEKDCBC0797-98-76 09:07:00 Test Item Value Reference Range Interpretation Comments INR (test code = INR) 2.31 1 0.85-1.17 [facility] MichiganZyenuhwYZRWTVHCIZ6790-82-68 09:07:00 Test Item Value Reference Range Interpretation Comments PTT (test code = PTT) 57.5 s 22.9-35.8 [facility] MichiganNudfqatKYYAQBKJTG4326-53-82 09:07:00 Test Item Value Reference Range Interpretation Comments Fibrinogen Lvl (test code = Fibrinogen 125 230-510 Lvl) [facility] MichiganLlisnabWQMVVIMFTY1578-32-57 09:07:00 Test Item Value Reference Range Interpretation Comments D-Dimer (test code = D-Dimer) 2.28 [facility] CenterBathurst Resources LimitedOOD BANK [id number] 04:52:00 Test Item Value Reference Range Interpretation Comments RBC product (test code Product available = RBC product) (01/21/21 11:52 PM) [facility]Mor[facility] Bro[facility] [id number] 00:38:00 Test Item Value Reference Range Interpretation Comments Troponin-I (test code no gt See_Comment [Auto mated message] The = Troponin-I) system which g enerated this result transmit rohit reference range : <=0.40. The reference r leo was not used to interpr et this result as reji l/abnormal. [facility] CenterCity[facility] [id number] 17:47:00 Test Item Value Reference Range Interpretation Comments BNP (test code = BNP) 2324 [facility] CenterClipClockRegency Energy Partners [id number] 17:47:00 Test Item Value Reference Range Interpretation Comments Troponin-I (test code 0.02 See_Comment [Auto mated message] The = Troponin-I) system which g enerated this result transmit rohit reference range : <=0.40. The reference r leo was not used to interpr et this result as reji l/abnormal. [facility] CenterKxlnsamZXJRZFEAJZ1380-96-13 17:47:00 Test Item Value Reference Range Interpretation Comments Hep Bs Ag (test code Negative *NA*(01/21/21 = Hep Bs Ag) 12:47 PM) [facility] [employer] [id number] 17:43:00 Test Item Value Reference Range Interpretation Comments B/C Ratio (test code = B/C Ratio) 5 1 6-25 [facility] HospitalTruQu [id number] 17:43:00 Test Item Value Reference Range Interpretation Comments ALT (test code = ALT) 66 See_Comment [Auto mated message] The system which ge nerated this result transmit rohit reference range : <=65. The reference range was not used to interpr et this result as reji l/abnormal. [facility] [employer] [id number] 17:43:00 Test Item Value Reference Range Interpretation Comments Albumin Lvl (test code = Albumin Lvl) 3.0 3.5-5.0 [facility] [employer] [id number] 17:43:00 Test Item Value Reference Range Interpretation Comments Alk Phos (test code = Alk Phos) 40 39-136 [facility] [employer] [id number] 17:43:00 Test Item Value Reference Range Interpretation Comments Bili Total (test code = Bili Total) 0.5 0.2-1.3 [facility] [employer] [id number] 17:43:00 Test Item Value Reference Range Interpretation Comments Total Protein (test code = Total 5.7 6.4-8.4 Protein) [facility] [employer] [id number] 17:43:00 Test Item Value Reference Range Interpretation Comments AST (test code = AST) 52 See_Comment [Auto mated message] The system which ge nerated this result transmit rohit reference range : <=37. The reference range was not used to interpr et this result as reji l/abnormal. [facility] [employer] [id number] 17:43:00 Test Item Value Reference Range Interpretation Comments Globulin (test code = Globulin) 2.7 2.7-4.2 [facility] [employer] [id number] 17:43:00 Test Item Value Reference Range Interpretation Comments A/G Ratio (test code = A/G Ratio) 1.1 1 0.7-1.6 [facility] [employer] [id number] 17:43:00 Test Item Value Reference Range Interpretation Comments Lactic Acid Lvl (test code = Lactic 1.1 0.5-2.2 Acid Lvl) [facility] [id number] 16:20:00 Test Item Value Reference Range Interpretation Comments ABO/Rh (test code = ABO/Rh) B POS [facility] [id number] 16:20:00 Test Item Value Reference Range Interpretation Comments Antibody Scrn (test Negative (01/21/21 11:20 code = Antibody Scrn) AM) [facility] [id number] 16:20:00 Test Item Value Reference Range Interpretation Comments Anisocyte (test code = 1+ *ABN*(01/21/21 Anisocyte) 11:20 AM) [facility] [id number] 15:35:00 Test Item Value Reference Range Interpretation Comments Lactase Lvl (test code = Lactase Lvl) 2.0 [facility] [id number] 15:35:00 Test Item Value Reference Range Interpretation Comments Sucrase Lvl (test code = Sucrase Lvl) 38.6 [facility] [id number] 15:35:00 Test Item Value Reference Range Interpretation Comments Maltase Lvl (test code = Maltase Lvl) 177.2 [facility] [id number] 15:35:00 Test Item Value Reference Range Interpretation Comments Palatinase Lvl (test code = Palatinase 13.8 Lvl) [id number] 13:21:00 Test Item Value Reference Range Interpretation Comments Potassium WB (test code = Potassium WB) 5.1 3.5-5.1 [id number] 13:21:00 Test Item Value Reference Range Interpretation Comments S Preg (test code = S Negative 8*NA*(01/21/21 Preg) 8:21 AM) [facility]nvmbpsSBUHTGVCXB2241-45-29 11:19:00 Test Item Value Reference Range Interpretation Comments Coronavirus (COVID-19) Not Detected (01/21/21 EMANUEL (test code = 6:19 AM) Coronavirus (COVID-19) EMANUEL) [facility] [id number] 16:39:05 Test Item Value Reference Range Interpretation Comments Glucose POC (test 183 mg/dL 70-115 H If you con academic specialist your code = Glucose POC) patient critically ill, the Merlin-Accu Check Infrom II meter should not be used for Glucose determination. Draw a venous Glucose and send to the main Lab for analysis. Urine [id number] 11:32:13 Test Item Value Reference Range Interpretation [...] Escherichia coli C Urine Added by GL_SJM_UA_CUL_INDPOC [id number] 07:52:10 Test Item Value Reference Range Interpretation Comments Glucose POC (test 160 mg/dL 70-115 H If you con academic specialist your code = Glucose POC) patient critically ill, the Merlin-Accu Check Infrom II meter should not be used for Glucose determination. Draw a venous Glucose and send to the main Lab for analysis. POC [id number] 19:32:05 Test Item Value Reference Range Interpretation Comments Glucose POC (test 184 mg/dL 70-115 H If you con academic specialist your code = Glucose POC) patient critically ill, the Merlin-Accu Check Infrom II meter should not be used for Glucose determination. Draw a venous Glucose and send to the main Lab for analysis. POC [id number] 17:16:35 Test Item Value Reference Range Interpretation Comments Glucose POC (test 281 mg/dL 70-115 H Notify RN or MDIf you code = Glucose POC) consider your patient critically ill, the Merlin-Accu Chec k Infrom II meter should not be used for Glucos e determination. Draw a venous Glucose and send to the main Lab for analysis. POC [id number] 12:00:38 Test Item Value Reference Range Interpretation Comments Glucose POC (test 138 mg/dL 70-115 H Notify RN or MDIf you code = Glucose POC) consider your patient critically ill, the Merlin-Accu Chec k Infrom II meter should not be used for Glucos e determination. Draw a venous Glucose and send to the main Lab for analysis. POC [id number] 07:41:32 Test Item Value Reference Range Interpretation Comments Glucose POC (test 206 mg/dL 70-115 H Notify RN or MDIf you code = Glucose POC) consider your patient critically ill, the Merlin-Accu Chec k Infrom II meter should not be used for Glucos e determination. Draw a venous Glucose and send to the main Lab for analysis. Urinalysis [id number] 21:07:21 Test Item Value Reference Range Interpretation Comments UA WBC (test code = UA WBC) TNTC 0-5 A UA RBC (test code = UA RBC) 6-10 0-5 A UA Bacteria (test code = UA Bacteria) Profuse A UA Squam Epithelial (test code = UA 6-10 A Squam Epithelial) Urinalysis with Culture, if [id number] 20:35:14 Test Item Value Reference Range Interpretation [...] Micro Indicated Not Indicated A Ind?) POC [id number] 19:06:34 Test Item Value Reference Range Interpretation Comments Glucose POC (test 207 mg/dL 70-115 H If you con academic specialist your code = Glucose POC) patient critically ill, the Merlin-Accu Check Infrom II meter should not be used for Glucose determination. Draw a venous Glucose and send to the main Lab for analysis. POC [id number] 17:12:03 Test Item Value Reference Range Interpretation Comments Glucose POC (test 173 mg/dL 70-115 H Notify RN or MDIf you code = Glucose POC) consider your patient critically ill, the Merlin-Accu Chec k Infrom II meter should not be used for Glucos e determination. Draw a venous Glucose and send to the main Lab for analysis. POC [id number] 11:58:01 Test Item Value Reference Range Interpretation Comments Glucose POC (test 289 mg/dL 70-115 H Notify RN or MDIf you code = Glucose POC) consider your patient critically ill, the Merlin-Accu Chec k Infrom II meter should not be used for Glucos e determination. Draw a venous Glucose and send to the main Lab for analysis. POC [id number] 08:19:37 Test Item Value Reference Range Interpretation Comments Glucose POC (test 201 mg/dL 70-115 H Notify RN or MDIf you code = Glucose POC) consider your patient critically ill, the Merlin-Accu Chec k Infrom II meter should not be used for Glucos e determination. Draw a venous Glucose and send to the main Lab for analysis. POC [id number] 20:37:35 Test Item Value Reference Range Interpretation Comments Glucose POC (test 272 mg/dL 70-115 H If you con academic specialist your code = Glucose POC) patient critically ill, the Merlin-Accu Check Infrom II meter should not be used for Glucose determination. Draw a venous Glucose and send to the main Lab for analysis. POC [id number] 17:23:05 Test Item Value Reference Range Interpretation Comments Glucose POC (test 229 mg/dL 70-115 H If you con academic specialist your code = Glucose POC) patient critically ill, the Merlin-Accu Check Infrom II meter should not be used for Glucose determination. Draw a venous Glucose and send to the main Lab for analysis. POC [id number] 12:01:01 Test Item Value Reference Range Interpretation Comments Glucose POC (test 155 mg/dL 70-115 H If you con academic specialist your code = Glucose POC) patient critically ill, the Merlin-Accu Check Infrom II meter should not be used for Glucose determination. Draw a venous Glucose and send to the main Lab for analysis. POC [id number] 08:07:32 Test Item Value Reference Range Interpretation Comments Glucose POC (test 248 mg/dL 70-115 H If you con academic specialist your code = Glucose POC) patient critically ill, the Merlin-Accu Check Infrom II meter should not be used for Glucose determination. Draw a venous Glucose and send to the main Lab for analysis. IG [id number] 06:50:39 Test Item Value Reference Range Interpretation Comments IG (test code = IG) 0.7 % 0.0-5.0 IG Abs (test code = IG Abs) 0 x10 N Complete Blood Count with [id number] 06:50:38 Test Item Value Reference Range Interpretation [...] code = IPF) 0 % N Automated [id number] 06:50:38 Test Item Value Reference Range Interpretation Comments Neutro Auto (test code = Neutro 50.3 % 36.0-70.0 Auto) Lymph Auto (test code = Lymph Auto) 38.6 % 12.0-44.0 Placer Auto (test code = Placer Auto) 7.3 % 0.0-11.0 Eos, Auto (test code = Eos, Auto) 2.4 % 0.0-7.0 Basophil Auto (test code = Basophil 0.7 % 0.0-2.0 Auto) Neutro Absolute (test code = Neutro 3.0 x10 1.6-7.4 Absolute) Lymph Absolute (test code = Lymph 2.28 x10 .50-4.60 Absolute) Placer Absolute (test code = Placer .43 x10 .00-1.20 Absolute) Eos Absolute (test code = Eos 0.14 x10 0.00-0.74 Absolute) Baso Absolute (test code = Baso 0.04 x10 0.00-0.21 Absolute) Basic Metabolic [id number] 05:38:20 Test Item Value Reference Range Interpretation [...] = Lipemia) 0 mg/dL 8-11 Basic Metabolic [id number] 05:38:20 Test Item Value Reference Range Interpretation [...] = 0 mg/dL 8-11 Lipemia) Basic Metabolic [id number] 05:38:20 Test Item Value Reference Range Interpretation [...] code = 0 mg/dL 8-11 Lipemia) POC [id number] 20:28:33 Test Item Value Reference Range Interpretation Comments Glucose POC (test 169 mg/dL 70-115 H If you con academic specialist your code = Glucose POC) patient critically ill, the Merlin-Accu Check Infrom II meter should not be used for Glucose determination. Draw a venous Glucose and send to the main Lab for analysis. POC [id number] 16:39:30 Test Item Value Reference Range Interpretation Comments Glucose POC (test 103 mg/dL 70-115 If you con academic specialist your code = Glucose POC) patient critically ill, the Merlin-Accu Check Infrom II meter should not be used for Glucose determination. Draw a venous Glucose and send to the main Lab for analysis. RPR [id number] 12:08:56 Test Item Value Reference Range Interpretation Comments RPR Qual (test code = RPR Qual) Non-Reactive Non-Reactive Reactive Control (test code = Reactive Reactive Control) Weak Reactive Control (test Weak Reactive code = Weak Reactive Control) Non-Reactive Control (test code Non-Reactive = Non-Reactive Control) Lot # (test code = Lot #) [id number] N Expiration Dt (test code = 03-20-2021 N Expiration Dt) POC [id number] 11:52:31 Test Item Value Reference Range Interpretation Comments Glucose POC (test 250 mg/dL 70-115 H If you con academic specialist your code = Glucose POC) patient critically ill, the Merlin-Accu Check Infrom II meter should not be used for Glucose determination. Draw a venous Glucose and send to the main Lab for analysis. POC Lkyplye9574-03-03 07:55:29 Test Item Value Reference Range Interpretation Comments Glucose POC (test 205 mg/dL 70-115 H If you con academic specialist your code = Glucose POC) patient critically ill, the Merlin-Accu Check Infrom II meter should not be used for Glucose determination. Draw a venous Glucose and send to the main Lab for analysis. Lipid [id number] 05:46:04 Test Item Value Reference Range Interpretation [...] LDL/HDL Ratio=L DL Calc/HDL Chol Thyroid Stimulating [id number] 05:46:04 Test Item Value Reference Range Interpretation Comments TSH (test code = TSH) 3.274 mcIU/mL 0.550-4.780 Hemoglobin [id number] 05:41:08 Test Item Value Reference Range Interpretation Comments Hemoglobin A1c (test code 7.6 % 4.0-5.8 H Di abetic >=6.5 = Hemoglobin A1c) %Prediabet es 5.7-6.4 %Normal <5.7 % Hepatitis B Surface [id number] 21:19:36 Test Item Value Reference Range Interpretation Comments Hep Bs Ag (test code = Hep Bs Non-Reactive Non-Reactive Ag) Novel Coronavirus SARS-CoV-2, [id number] 11:16:16 Test Item Value Reference Range Interpretation [...] Emergency Use Authorization." Novel Coronavirus (COVID-19), EMANUEL [id number] 11:11:24TNPTest not sent and performed at [facility].Rapid was perfomed in Microbiology.Wrong covid test was ord ered.Urine DOA [id number] 00:17:49 Test Item Value Reference Range Interpretation [...] Propoxyphene Confirmation wi thin 7 days. Alcohol [id number] 00:17:29 Test Item Value Reference Range Interpretation Comments Ethanol Level 9.0 mg/dL N The pharmacolo gical (test code = response to blo od alcohol Ethanol Level) levels may va ry from individual to i ndividual. The fatal omkar ntration has been report ed to be >400 mg/dl. Comprehensive Metabolic [id number] 00:17:28 Test Item Value Reference Range Interpretation [...] = Lipemia) 0 g/dL 1-2 Comprehensive Metabolic [id number] 00:17:28 Test Item Value Reference Range Interpretation [...] = 0 g/dL 1-2 Lipemia) Comprehensive Metabolic [id number] 00:17:28 Test Item Value Reference Range Interpretation [...] ag e have not been validated by [facility] MDRD study and should be interpreted [...] ag e have not been validated by [facility] MDRD study and should be interpreted [...] g/dL 1-2 Lipemia) Complete Blood Count with [id number] 23:26:28 Test Item Value Reference Range Interpretation [...] code = IPF) 0 % N Automated [id number] 23:26:28 Test Item Value Reference Range Interpretation Comments Neutro Auto (test code = Neutro 67.1 % 36.0-70.0 Auto) Lymph Auto (test code = Lymph Auto) 23.3 % 12.0-44.0 Placer Auto (test code = Placer Auto) 5.8 % 0.0-11.0 Eos, Auto (test code = Eos, Auto) 2.3 % 0.0-7.0 Basophil Auto (test code = Basophil 0.8 % 0.0-2.0 Auto) Neutro Absolute (test code = Neutro 6.0 x10 1.6-7.4 Absolute) Lymph Absolute (test code = Lymph 2.10 x10 .50-4.60 Absolute) Placer Absolute (test code = Placer .52 x10 .00-1.20 Absolute) Eos Absolute (test code = Eos 0.21 x10 0.00-0.74 Absolute) Baso Absolute (test code = Baso 0.07 x10 0.00-0.21 Absolute) IG [id number] 23:26:28 Test Item Value Reference Range Interpretation Comments IG (test code = IG) 0.7 % 0.0-5.0 IG Abs (test code = IG Abs) 0 x10 N HERPES VIRUS ANTIBODY, [id number] 21:46:00 Test Item Value Reference Range Interpretation Comments HERPES VIRUS IGM ([facility]) Negative SE E ATTACHMENT (test code = 1808) BLOOD [id number] 06:00:00 Test Item Value Reference Range Interpretation Comments CULTURE (BEAKER) (test No growth in 5 days code = 1095) BLOOD [id number] 06:00:00 Test Item Value Reference Range Interpretation Comments CULTURE (BEAKER) (test No growth in 5 days code = 1095) POCT-GLUCOSE [id number] 12:11:00 Test Item Value Reference Range Interpretation Comments POC-GLUCOSE METER 154 mg/dL 70-110 H TESTED AT [place] [address] ([facility]) (test code = [facility] 1538) [address] POCT-GLUCOSE [id number] 07:53:00 Test Item Value Reference Range Interpretation Comments POC-GLUCOSE METER 87 mg/dL 70-110 TESTED AT [place] [address] ([facility]) (test code = [facility] [address] 1538) POCT-GLUCOSE [id number] 06:49:00 Test Item Value Reference Range Interpretation Comments POC-GLUCOSE METER 79 mg/dL 70-110 TESTED AT [place] [address] ([facility]) (test code = [facility] [address] 1538) COMPREHENSIVE METABOLIC [id number] 06:15:00 Test Item Value Reference Range Interpretation [...] 347) EGFR (BEAKER) (test 20 mL/min/1.73 ESTIMA ROHIT GFR IS code = 1092) sq m NOT ACCURATE CREATININE CLEARANCE IN PREDICTING GLOMERULAR FILTRATION RATE . ESTIMATED GFR I S NOT APPLICABLE FOR DIALYSIS PATIEN TS. [id number] 06:11:00 Test Item Value Reference Range Interpretation Comments MAGNESIUM (BEAKER) (test code = 2.1 mg/dL 1.6-2.6 627) HEPATIC FUNCTION [id number] 06:11:00 Test Item Value Reference Range Interpretation Comments TOTAL PROTEIN (BEAKER) (test code = 5.1 gm/dL 6.0-8.3 L 770) ALBUMIN (BEAKER) (test code = 1145) 2.2 g/dL 3.5-5.0 L BILIRUBIN TOTAL (BEAKER) (test code 1.1 mg/dL 0.2-1.2 = 377) BILIRUBIN DIRECT (BEAKER) (test 0.7 mg/dL 0.1-0.5 H code = 706) ALKALINE PHOSPHATASE ([facility]) (test 78 U/L 40-150 code = 346) AST (SGOT) (AKER) (test code = 256 U/L 5-34 H 353) ALT (SGPT) ([facility]) (test code = 513 U/L 6-55 H 347) [id number] 05:30:00 Test Item Value Reference Range Interpretation Comments FIBRINOGEN LEVEL ([facility]) (test 368 mg/dl 225-434 code = 658) [id number] 05:30:00 Test Item Value Reference Range Interpretation Comments PARTIAL THROMBOPLASTIN TIME 42.2 seconds 22.5-36.0 H ([facility]) (test code = 760) PROTHROMBIN [id number] 05:29:00 Test Item Value Reference Range Interpretation Comments PROTIME ([facility]) (test code = 14.8 seconds 11.7-14.7 H 759) INR ([facility]) (test code = 370) 1.2 <=5.9 RECOMMENDED COUMADIN/WARFARIN INR THERAPY RANGESSTANDARD DOSE: 2.0 - 3.0 Includes: PROPHYLAXIS forvenous thrombosis, systemic embolization; TREATMENT for venous thrombosis and/or pulmonary embolus.HIGH RISK: Target INR is 2.5-3.5 for patients with mechanical heart valves.POCT-GLUCOSE [id number] 21:09:00 Test Item Value Reference Range Interpretation Comments POC-GLUCOSE METER 178 mg/dL 70-110 H TESTED AT [place] [address] ([facility]) (test code = [place] 1538) [id number] POCT-GLUCOSE [id number] 17:18:00 Test Item Value Reference Range Interpretation Comments POC-GLUCOSE METER 178 mg/dL 70-110 H TESTED AT [place] [address] ([facility]) (test code = [place] 1538) [address] POCT-GLUCOSE [id number] 13:48:00 Test Item Value Reference Range Interpretation Comments POC-GLUCOSE METER 150 mg/dL 70-110 H TESTED AT [place] [address] ([facility]) (test code = [place] 1538) [address] FACTOR 5 ACTIVITY (BLEEDING RISK)2017-01-06 10:04:00 Test Item Value Reference Range Interpretation Comments FACTOR V ACTIVITY (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 G 1807) CYTOMEGALOVIRUS ANTIBODY, [id number] 08:59:00 Test Item Value Reference Range Interpretation Comments CYTOMEGALOVIRUS IGG ANTIBODY Positive (BEAKER) (test code = 790) EBV-VCA ANTIBODY, [id number] 08:59:00 Test Item Value Reference Range Interpretation Comments JASE-WALL VCA IGG (BEAKER) (test Positive code = 983) EBV-VCA ANTIBODY, [id number] 08:59:00 Test Item Value Reference Range Interpretation Comments JASE-WALL VCA IGM (BEAKER) (test Negative code = 984) POCT-GLUCOSE [id number] 07:59:00 Test Item Value Reference Range Interpretation Comments POC-GLUCOSE METER 81 mg/dL 70-[address] [facility] [address] ([facility]) (test code = [place] [address] 1538) COMPREHENSIVE METABOLIC [id number] 06:23:00 Test Item Value Reference Range Interpretation [...] 347) EGFR (BEAKER) (test 18 mL/min/1.73 ESTIMA ROHIT GFR IS code = 1092) sq m NOT ACCURATE CREATININE CLEARANCE IN PREDICTING GLOMERULAR FILTRATION RATE . ESTIMATED GFR I S NOT APPLICABLE FOR DIALYSIS PATIEN TS. [id number] 06:17:00 Test Item Value Reference Range Interpretation Comments MAGNESIUM (BEAKER) (test code = 1.8 mg/dL 1.6-2.6 627) HEPATIC FUNCTION [id number] 06:17:00 Test Item Value Reference Range Interpretation [...] code = 779 U/L 6-55 H 347) [id number] 06:00:00 Test Item Value Reference Range Interpretation Comments FIBRINOGEN LEVEL (BEAKER) (test 390 mg/dl 225-434 code = 658) [id number] 06:00:00 Test Item Value Reference Range Interpretation Comments PARTIAL THROMBOPLASTIN TIME 40.2 seconds 22.5-36.0 H ([facility]) (test code = 760) PROTHROMBIN [id number] 05:59:00 Test Item Value Reference Range Interpretation Comments PROTIME ([facility]) (test code = 14.6 seconds 11.7-14.7 759) INR ([facility]) (test code = 370) 1.2 <=5.9 RECOMMENDED COUMADIN/WARFARIN INR THERAPY RANGESSTANDARD DOSE: 2.0 - 3.0 Includes: PROPHYLAXIS forvenous thrombosis, systemic embolization; TREATMENT for venous thrombosis and/or pulmonary embolus.HIGH RISK: Target INR is 2.5-3.5 for patients with mechanical heart valves.POCT-GLUCOSE [id number] 21:46:00 Test Item Value Reference Range Interpretation Comments POC-GLUCOSE METER 153 mg/dL 70-110 H TESTED AT [place] [address] ([facility]) (test code = [facility] 1538) [address] POCT-GLUCOSE [id number] 18:47:00 Test Item Value Reference Range Interpretation Comments POC-GLUCOSE METER 181 mg/dL 70-110 H TESTED AT [place] [address] ([facility]) (test code = [facility] 1538) [address] POCT-GLUCOSE [id number] 12:40:00 Test Item Value Reference Range Interpretation Comments POC-GLUCOSE METER 178 mg/dL 70-110 H TESTED AT [place] [address] ([facility]) (test code = [facility] 1538) [address] POCT-GLUCOSE [id number] 07:51:00 Test Item Value Reference Range Interpretation Comments POC-GLUCOSE METER 166 mg/dL 70-110 H TESTED AT [place] [address] ([facility]) (test code = [facility] 1538) [address] COMPREHENSIVE METABOLIC [id number] 03:26:00 Test Item Value Reference Range Interpretation Comments TOTAL PROTEIN 5.2 gm/dL 6.0-8.3 L ([facility]) (test code = 770) ALBUMIN ([facility]) 2.3 g/dL 3.5-5.0 L (test code = 1145) ALKALINE PHOSPHATASE 72 U/L 40-150 ([facility]) (test code = 346) BILIRUBIN [...] 347) EGFR (BEAKER) (test 15 mL/min/1.73 ESTIMA ROHIT GFR IS code = 1092) sq m NOT ACCURATE CREATININE CLEARANCE IN PREDICTING GLOMERULAR FILTRATION RATE . ESTIMATED GFR I S NOT APPLICABLE FOR DIALYSIS PATIEN TS. [id number] 03:22:00 Test Item Value Reference Range Interpretation Comments MAGNESIUM (BEAKER) (test code = 1.4 mg/dL 1.6-2.6 L 627) HEPATIC FUNCTION [id number] 03:22:00 Test Item Value Reference Range Interpretation [...] code = 1009 U/L 6-55 H 347) [id number] 03:12:00 Test Item Value Reference Range Interpretation Comments AMMONIA (BEAKER) (test code = 348) 29 mol/L 18-72 [id number] 03:10:00 Test Item Value Reference Range Interpretation Comments PARTIAL THROMBOPLASTIN TIME 42.3 seconds 22.5-36.0 H (BEAKER) (test code = 760) PROTHROMBIN [id number] 03:09:00 Test Item Value Reference Range Interpretation Comments PROTIME (BEAKER) (test code = 16.4 seconds 11.7-14.7 H 759) INR (BEAKER) (test code = 370) 1.3 <=5.9 RECOMMENDED COUMADIN/WARFARIN INR THERAPY RANGESSTANDARD DOSE: 2.0 - 3.0 Includes: PROPHYLAXIS forvenous thrombosis, systemic embolization; TREATMENT for venous thrombosis and/or pulmonary embolus.HIGH RISK: Target INR is 2.5-3.5 for patients with mechanical heart valves.[id number] 03:09:00 Test Item Value Reference Range Interpretation Comments FIBRINOGEN LEVEL (BEAKER) (test 413 mg/dl 225-434 code = 658) CBC W/PLT COUNT & AUTO [id number] 03:09:00 Test Item Value Reference Range Interpretation [...] L 0.00-0.20 (test code = 417) 0.00POCT-GLUCOSE [id number] 22:33:00 Test Item Value Reference Range Interpretation Comments POC-GLUCOSE METER 230 mg/dL 70-[address] [facility] ([facility] 1538) [address] POCT-GLUCOSE [id number] 18:17:00 Test Item Value Reference Range Interpretation Comments POC-GLUCOSE METER 222 mg/dL 70-[address] [facility] 67[address] ([facility]) (test code = [facility] Eduin [facility] 1538) [address] COMPREHENSIVE METABOLIC [id number] 16:59:00 Test Item Value Reference Range Interpretation [...] 347) EGFR (BEAKER) (test 15 mL/min/1.73 ESTIMA ROHIT GFR IS code = 1092) sq m NOT ACCURATE CREATININE CLEARANCE IN PREDICTING GLOMERULAR FILTRATION RATE . ESTIMATED GFR I S NOT APPLICABLE FOR DIALYSIS PATIEN TS. PERIPHERAL BLOOD SMEAR - PATHOLOGIST [id number] 15:30:00 Test Item Value Reference Range Interpretation Comments RBC MORPHOLOGY Polychromasia (BEAKER) (test code = 2846) RBC MORPHOLOGY Anisocytosis (BEAKER) (test code = 91025) PERIPHERAL SMR REVIEW Cell counts confirmed (BEAKER) (test code = 2642) [id number] Josefina Lara M.D. (BEAKER) (test code = (electronic signature) 1866) PROTHROMBIN [id number] 15:12:00 Test Item Value Reference Range Interpretation [...] Negative Negative (test code = 418) POCT-GLUCOSE [id number] 12:47:00 Test Item Value Reference Range Interpretation Comments POC-GLUCOSE METER 212 mg/dL 70-[address] [facility] 67[address] ([employer]) (test code = [place] 1538) [address] [id number] 12:34:00 Test Item Value Reference Range Interpretation Comments RPR SCREEN ([employer]) (test code = Nonreactive Nonreactive 420) CLOSTRIDIUM DIFFICILE TOXIN [id number] 10:12:00 Test Item Value Reference Range Interpretation Comments CLOSTRIDIUM DIFFICILE TOXIN, PCR Not Detected Not Detected ([employer]) (test code = 1525) This qualitative real-time [...] Reference Range Change-Adult onlyNew: 60.0-150.0 Previous: 50.0-150.0POCT-GLUCOSE [id number] 06:40:00 Test Item Value Reference Range Interpretation Comments POC-GLUCOSE METER 167 mg/dL 70-[address] [facility] [address] [facility] (test code = [place] 1538) [address] COMPREHENSIVE METABOLIC [id number] 04:08:00 Test Item Value Reference Range Interpretation [...] ESTIM ATED GFR. Specimen slightly ictericHEPATIC FUNCTION [id number] 04:06:00 Test Item Value Reference Range Interpretation [...] 1091 U/L 6-55 H 347) Specimen slightly [id number] 04:01:00 Test Item Value Reference Range Interpretation Comments FIBRINOGEN LEVEL (BEAKER) (test 379 mg/dl 225-434 code = 658) [id number] 04:01:00 Test Item Value Reference Range Interpretation Comments PARTIAL THROMBOPLASTIN TIME 40.7 seconds 22.5-36.0 H (BEAKER) (test code = 760) PROTHROMBIN [id number] 04:00:00 Test Item Value Reference Range Interpretation [...] L 0.00-0.20 (test code = 417) 0.00POCT-GLUCOSE [id number] 00:19:00 Test Item Value Reference Range Interpretation Comments POC-GLUCOSE METER 159 mg/dL 70-[address] [facility] 6720 (BEAKER) (test code = [place] 1538) [address] POCT-GLUCOSE [id number] 18:56:00 Test Item Value Reference Range Interpretation Comments POC-GLUCOSE METER 192 mg/dL 70-[address] [facility] 67[address] (BEAKER) (test code = [place] 1538) [address] COMPREHENSIVE METABOLIC [id number] 16:55:00 Test Item Value Reference Range Interpretation [...] CALCULATE ESTIM ATED GFR. Specimen slightly ictericPROTHROMBIN [id number] 16:37:00 Test Item Value Reference Range Interpretation Comments PROTIME (BEAKER) (test code = 20.9 seconds 11.7-14.7 H 759) INR (BEAKER) (test code = 370) 1.8 <=5.9 RECOMMENDED COUMADIN/WARFARIN INR THERAPY RANGESSTANDARD DOSE: 2.0 - 3.0 Includes: PROPHYLAXIS forvenous thrombosis, systemic embolization; TREATMENT for venous thrombosis and/or pulmonary embolus.HIGH RISK: Target INR is 2.5-3.5 for patients with mechanical heart valves.HEPATITIS B SURFACE [id number] 14:05:00 Test Item Value Reference Range Interpretation Comments HEPATITIS B SURFACE ANTIBODY < mIU/mL <8.0 (BEAKER) (test code = 647) HEPATITIS B CORE ANTIBODY, [id number] 13:43:00 Test Item Value Reference Range Interpretation Comments HEPATITIS B CORE TOTAL ANTIBODY Nonreactive Nonreactive (BEAKER) (test code = 497) BLOOD GAS, [id number] 13:35:00 Test Item Value Reference Range Interpretation [...] code = 1819) 28.0 % URINALYSIS W/ [id number] 13:16:00 Test Item Value Reference Range Interpretation [...] 1584) SOURCE(BEAKER) (test code = Urine, [place] 8475) VITAMIN D, 15-[id number] 13:14:00 Test Item Value Reference Range Interpretation Comments VITAMIN D 25-OH (BEAKER) (test code = < ng/mL 13.0-47.8 L 2764) ALPHA FETOPROTEIN (AFP), TUMOR [id number] 13:06:00 Test Item Value Reference Range Interpretation Comments ALPHA-FETOPROTEIN (BEAKER) (test code < ng/mL <10.0 = 1094) Effective 05/08/2014: Reference Range ChangeNew: <10.0 Previous: 0.0-8.0 HEMOGLOBIN [id number] 13:05:00 Test Item Value Reference Range Interpretation Comments HEMOGLOBIN A1C (BEAKER) (test code = 7.6 % 4.3-6.1 H 368) CARCINOEMBRYONIC ANTIGEN (CEA)2017-01-03 12:59:00 Test Item Value Reference Range Interpretation Comments CARCINOEMBRYONIC ANTIGEN (BEAKER) 2.0 ng/mL 0.0-5.0 (test code = 685) [id number] 12:59:00 Test Item Value Reference Range Interpretation Comments FERRITIN (BEAKER) (test code = 1841 ng/mL 5-275 H 361) Effective 05/08/2014: Reference Range ChangeNew: Male 5-275 Previous: Male 22-322 Female 5-275 Female [id number] 12:58:00 Test Item Value Reference Range Interpretation Comments T4 TOTAL (BEAKER) (test code = 895) 4.5 ug/dL 4.9-11.7 L [id number] 12:58:00 Test Item Value Reference Range Interpretation Comments THYROID STIMULATING HORMONE 1.79 uIU/mL 0.35-4.94 (BEAKER) (test code = 772) [id number] 12:58:00 Test Item Value Reference Range Interpretation Comments T3 TOTAL (BEAKER) (test code = 656) 34 ng/dL 48-159 L Effective 05/08/2014: Reference Range ChangeNew: 48-159 Previous: 60-181 CALCIUM, [id number] 12:47:00 Test Item Value Reference Range Interpretation Comments CALCIUM IONIZED (BEAKER) (test 1.05 mmol/L 1.12-1.27 L code = 698) PH, BLOOD (BEAKER) (test code = 7.43 1810) [id number] 12:42:00 Test Item Value Reference Range Interpretation [...] % 20-55 (test code = 2590) URIC [id number] 12:40:00 Test Item Value Reference Range Interpretation Comments URIC ACID (BEAKER) (test code = 16.0 mg/dL 2.6-7.2 H 773) Specimen slightly ictericLIPID [id number] 12:40:00 Test Item Value Reference Range Interpretation [...] 160-189 Very High >=190 Specimen slightly ictericBILIRUBIN, [id number] 12:40:00 Test Item Value Reference Range Interpretation Comments BILIRUBIN DIRECT (BEAKER) (test 2.4 mg/dL 0.1-0.5 H code = 706) GAMMA GLUTAMYL TRANSFERASE (GGT)2017-01-03 12:40:00 Test Item Value Reference Range Interpretation Comments GAMMA GLUTAMYL TRANSFERASE (BEAKER) 53 U/L 9-64 (test code = 364) Specimen slightly [id number] 12:39:00 Test Item Value Reference Range Interpretation Comments ETHANOL (BEAKER) (test code = 400) < mg/dL <=10 SCREEN, [id number] 12:36:00 Test Item Value Reference Range Interpretation Comments TEST URINE (MADIE) (test Negative code = 583) POCT-GLUCOSE [id number] 12:34:00 Test Item Value Reference Range Interpretation Comments POC-GLUCOSE METER 189 mg/dL 70-[address] [facility] 67[address] (MADIE) (test code = [place] [address]) [address] HIV-1 ANTIGEN WITH HIV-1/2 [id number] 11:58:00 Test Item Value Reference Range Interpretation Comments HIV-1 ANTIGEN WITH HIV 1\\T\\2 Nonreactive Nonreactive ANTIBODY (2) (MADIE) (test code = 2586) TROPONIN [id number] 09:44:00 Test Item Value Reference Range Interpretation Comments TROPONIN I (BEAKER) (test code = 0.34 ng/mL 0.00-0.03 HH [...] Previous: 0.0-4.9CK-MB Reference Range:<6.7 Normal6.7-10.0 Borderline>10.0 AbnormalACETAMINOPHEN [id number] 08:31:00 Test Item Value Reference Range Interpretation Comments ACETAMINOPHEN LEVEL (BEAKER) (test < ug/mL 10.0-30.0 L code = 344) TROPONIN [id number] 05:53:00 Test Item Value Reference Range Interpretation [...] acute neurological disease, and persistent tachyarrhythmia.BASIC METABOLIC [id number] 05:53:00 Test Item Value Reference Range Interpretation [...] TO CALCULA TE ESTIMATED GFR. Specimen slightly [id number] 05:52:00 Test Item Value Reference Range Interpretation Comments PHOSPHORUS (BEAKER) (test code = 5.7 mg/dL 2.3-4.7 H 604) HEPATIC FUNCTION [id number] 05:52:00 Test Item Value Reference Range Interpretation [...] Specimen slightly ictericCREATINE KINASE (CK), TOTAL AND [id number] 05:52:00 Test Item Value Reference Range Interpretation Comments CREATINE KINASE TOTAL (BEAKER) 341 U/L 29-200 H (test code = 380) CREATINE KINASE-MB (BEAKER) (test 5.4 ng/mL 0.0-6.6 code = 750) CREATINE KINASE-MB INDEX (BEAKER) 1.6 % (test code = 395) Effective 05/08/2014: CK-MB Reference Range ChangeNew: 0.0-6.6 Previous: 0.0-4.9CK-MB Reference Range:<6.7 Normal6.7-10.0 Borderline>10.0 AbnormalCBC W/PLT COUNT & AUTO [id number] 05:48:00 Test Item Value Reference Range Interpretation [...] K/ L 0.00-0.20 (test code = 417) 0.96SYCDDYPTZI3012-57-46 05:09:00 Test Item Value Reference Range Interpretation Comments FIBRINOGEN LEVEL (BEAKER) (test 427 mg/dl 225-434 code = 658) [id number] 05:09:00 Test Item Value Reference Range Interpretation Comments PARTIAL THROMBOPLASTIN TIME 36.2 seconds 22.5-36.0 H (BEAKER) (test code = 760) PROTHROMBIN [id number] 05:08:00 Test Item Value Reference Range Interpretation Comments PROTIME (BEAKER) (test code = 22.8 seconds 11.7-14.7 H 759) INR (BEAKER) (test code = 370) 2.0 <=5.9 RECOMMENDED COUMADIN/WARFARIN INR THERAPY RANGESSTANDARD DOSE: 2.0 - 3.0 Includes: PROPHYLAXIS forvenous thrombosis, systemic embolization; TREATMENT for venous thrombosis and/or pulmonary embolus.HIGH RISK: Target INR is 2.5-3.5 for patients with mechanical heart valves.HEPATITIS PANEL, [id number] 03:40:00 Test Item Value Reference Range Interpretation Comments HEPATITIS A IGM ANTIBODY (BEAKER) Nonreactive Nonreactive (test code = 498) HEPATITIS B CORE IGM ANTIBODY Nonreactive Nonreactive (BEAKER) (test code = 645) HEPATITIS C ANTIBODY (BEAKER) Nonreactive Nonreactive (test code = 367) HEPATITIS B SURFACE ANTIGEN (2) Nonreactive Nonreactive (BEAKER) (test code = 2585) CREATININE, RANDOM [id number] 03:18:00 Test Item Value Reference Range Interpretation Comments CREATININE URINE (BEAKER) (test 118.7 mg/dL code = 375) Reference Range: No NormalsSODIUM, RANDOM [id number] 03:18:00 Test Item Value Reference Range Interpretation Comments SODIUM URINE (BEAKER) (test code = 60 meq/L 243) Reference Range: No NormalsUREA NITROGEN, RANDOM [id number] 03:18:00 Test Item Value Reference Range Interpretation Comments UREA NITROGEN URINE (BEAKER) (test 303 mg/dL code = 538) Reference Range: No [id number] 03:07:00 Test Item Value Reference Range Interpretation Comments AMMONIA (BEAKER) (test code = 348) 48 mol/L 18-72 R-[id number] 02:57:00 Test Item Value Reference Range Interpretation [...] within 95-100% range. URINALYSIS W/ REFLEX URINE [id number] 02:53:00 Test Item Value Reference Range Interpretation [...] = 514) SOURCE(BEAKER) (test code = 2795) [id number] 02:49:00 Test Item Value Reference Range Interpretation Comments PARTIAL THROMBOPLASTIN TIME 39.4 seconds 22.5-36.0 H (BEAKER) (test code = 760) PROTHROMBIN TIME/[id number] 02:48:00 Test Item Value Reference Range Interpretation Comments PROTIME (BEAKER) (test code = 22.0 seconds 11.7-14.7 H 759) INR (BEAKER) (test code = 370) 1.9 <=5.9 RECOMMENDED COUMADIN/WARFARIN INR THERAPY RANGESSTANDARD DOSE: 2.0 - 3.0 Includes: PROPHYLAXIS forvenous thrombosis, systemic embolization; TREATMENT for venous thrombosis and/or pulmonary embolus.HIGH RISK: Target INR is 2.5-3.5 for patients with mechanical heart valves.[id number] 02:48:00 Test Item Value Reference Range Interpretation Comments FIBRINOGEN LEVEL (BEAKER) (test 421 mg/dl 225-434 code = 658) BLOOD GAS, [id number] 02:43:00 Test Item Value Reference Range Interpretation [...] 21.0 % CBC W/PLT COUNT & AUTO [id number] 02:43:00 Test Item Value Reference Range Interpretation [...] code = 417) 0.00LACTIC ACID, VENOUS, WHOLE [id number] 02:35:00 Test Item Value Reference Range Interpretation Comments LACTATE BLOOD VENOUS (2) (BEAKER) 0.8 mmol/L 0.5-2.2 (test code = 2872) Effective 10/23/2015: Units/Reference Range ChangeNew: 0.5-2.2 mmol/L Previous: 5-20 mg/dLSpecimen slightly [id number] 11:32:00 Test Item Value Reference Range Interpretation Comments AGAP (test code = AGAP) 14.6 10.0-20.0 [id number] 11:32:00 Test Item Value Reference Range Interpretation Comments eGFR (test code = eGFR) 33 [facility]QcvwwdsPZJIMZDCEDSR6620-05-54 11:32:00 Test Item Value Reference Range Interpretation Comments Calcium Lvl (test code = Calcium Lvl) 8.3 8.5-10.5 [facility] Hospital[id number] 11:32:00 Test Item Value Reference Range Interpretation Comments Glucose Lvl (test code = Glucose Lvl) 81 70-99 [facility] Hospital[id number] 11:32:00 Test Item Value Reference Range Interpretation Comments Creatinine Lvl (test code = Creatinine 1.95 0.50-1.40 Lvl) [facility] HospitalEoaxwwkAIHVKXWFXYDW1758-40-48 11:32:00 Test Item Value Reference Range Interpretation Comments BUN (test code = BUN) 55 7-22 [facility] HospitalIlzacvtKEFNIKOHEVIY5093-84-40 11:32:00 Test Item Value Reference Range Interpretation Comments CO2 (test code = CO2) 19 24-32 [facility] HospitalEfoutweICVTLDAXUEGU8419-11-38 11:32:00 Test Item Value Reference Range Interpretation Comments Chloride Lvl (test code = Chloride Lvl) 110 95-109 [facility] HospitalOuivigcBHOHVMWOREDC9981-41-60 11:32:00 Test Item Value Reference Range Interpretation Comments Sodium Lvl (test code = Sodium Lvl) 139 135-145 [facility] HospitalTqziyneOZEZAGMEUXHB2011-21-79 11:32:00 Test Item Value Reference Range Interpretation Comments Potassium Lvl (test code = Potassium 4.6 3.5-5.1 Lvl) [facility] CenterTuhpfdnCTJEOOTJHB8994-86-82 11:32:00 Test Item Value Reference Range Interpretation Comments Lymphocytes (test code = Lymphocytes) 30.4 20.0-40.0 [facility] CenterUgljbyiJMBUFWQYXI7529-90-39 11:32:00 Test Item Value Reference Range Interpretation Comments Eosinophils (test code = 4.5 See_Comment [A utomated message] The Eosinophils) system which ge nerated this result tra nsmitted reference range : <=4.0. The reference r leo was not used to int erpret this result as normal/abnormal . [facility] CenterMmkpyflKRPLTUYGXM4518-41-81 11:32:00 Test Item Value Reference Range Interpretation Comments Monocytes (test code = Monocytes) 13.7 2.0-12.0 [facility] CenterPccratkDNXKDZPMGM2488-02-27 11:32:00 Test Item Value Reference Range Interpretation Comments Segs-Bands # (test code = Segs-Bands #) 2.6 1.5-8.1 [facility] CenterAqwlochWFVKLYJCSO9198-80-31 11:32:00 Test Item Value Reference Range Interpretation Comments Basophils (test code = 0.7 See_Comment [Aut omated message] The Basophils) system which ge nerated this result tra nsmitted reference range : <=1.0. The reference r leo was not used to int erpret this result as normal/abnormal . [facility] CenterCjwywgrSIZLTFRZCB9278-68-70 11:32:00 Test Item Value Reference Range Interpretation Comments Monocytes # (test code 0.7 See_Comment [Aut omated message] The = Monocytes #) system which generated this result tra nsmitted reference range : <=0.8. The reference r leo was not used to int erpret this result as normal/abnormal . [facility] CenterXcopqbnUTODCADMVR3513-27-37 11:32:00 Test Item Value Reference Range Interpretation Comments Lymphocytes # (test code = Lymphocytes 1.6 1.0-5.5 #) [facility] CenterZrkytkwWXMRZSGMXG5671-78-60 11:32:00 Test Item Value Reference Range Interpretation Comments Eosinophils # (test code 0.2 See_Comment [A utomated message] The = Eosinophils #) system whic h generated this result tra nsmitted reference range : <=0.5. The reference r leo was not used to int erpret this result as normal/abnormal . [facility] CenterAyszsnbVODTMHGUNF2131-40-14 11:32:00 Test Item Value Reference Range Interpretation Comments Segs (test code = Segs) 50.7 45.0-75.0 [facility] CenterUdsvcsrAHQAFZZRLW4005-72-91 11:32:00 Test Item Value Reference Range Interpretation Comments PB Smear Path Peripheral blood smear shows (test code = PB hypochromic normocytic Smear Path) anemia with anisopoikilocytsosis, no increase in schistocytes, slight polychromasia, frequent eccinocytes, occasional eliptocytes, and moderate thrombocytopenia. Impression: (1) No evidence of microangiopathic hemolysis (2) RBC morphology is suggestive of anemia of chronic disease or iron deficiency anemia, and renal disease. CPT: 42114 [facility] CenterFvianiuPAUCBAHEZK9125-67-80 11:32:00 Test Item Value Reference Range Interpretation Comments Hct (test code = Hct) 28.1 36.0-48.0 [facility] CenterBupfrukZRTGKVOSLA0680-43-03 11:32:00 Test Item Value Reference Range Interpretation Comments RBC (test code = RBC) 3.39 4.20-5.40 [facility] CenterVlvkajbRFZYAWTWYO7119-79-93 11:32:00 Test Item Value Reference Range Interpretation Comments Hgb (test code = Hgb) 8.9 12.0-16.0 [facility] CenterEwpvegdGIRKLZZERT0402-01-60 11:32:00 Test Item Value Reference Range Interpretation Comments WBC (test code = WBC) 5.1 3.7-10.4 [facility] CenterXlbiwrhLSLLRJSWCP0926-96-99 11:32:00 Test Item Value Reference Range Interpretation Comments MPV (test code = MPV) 11.3 7.4-10.4 [facility] CenterEaboyojPWCXEOESAQ0897-08-26 11:32:00 Test Item Value Reference Range Interpretation Comments Platelet (test code = Platelet) 118 133-450 [facility] CenterLhabjyvTOOQLQLAXX2473-58-06 11:32:00 Test Item Value Reference Range Interpretation Comments MCHC (test code = MCHC) 31.8 32.0-36.0 [facility] CenterGccoasrQTBDQZZYXD4835-93-62 11:32:00 Test Item Value Reference Range Interpretation Comments RDW (test code = RDW) 18.0 11.5-14.5 [facility] CenterFyuomtlZGDBPWHKHV8510-65-23 11:32:00 Test Item Value Reference Range Interpretation Comments MCV (test code = MCV) 83.0 80.0-98.0 [facility] CenterCvpdruaAKOPCWARRL4687-07-38 11:32:00 Test Item Value Reference Range Interpretation Comments MCH (test code = MCH) 26.4 pg 27.0-31.0 [facility]QfuyakpYEZONENJJF6726-44-23 11:32:00 Test Item Value Reference Range Interpretation Comments C3 Complement (test code = C3 137 88-201 Complement) [facility] CenterKwurrrpNEHFMUBILG5625-54-18 11:32:00 Test Item Value Reference Range Interpretation Comments HIV. (test code = Negative *NA*(07/30/16 HIV.) 5:32 AM) [facility]JmcgphiEMFPQSXTTZ6046-32-28 11:05:00 Test Item Value Reference Range Interpretation Comments PB Smear Path Peripheral blood smear shows (test code = PB hypochromic normocytic Smear Path) anemia with anisopoikilocytsosis, no increase in schistocytes, moderate polychromasia, frequent eccinocytes, occasional eliptocytes, and moderate thrombocytopenia. Impression: (1) No evidence of microangiopathic hemolysis (2) RBC morphology is suggestive of anemia of chronic disease or iron deficiency anemia, and renal disease. CPT: 21027 [facility]AdczjftLLLQOBJZOT6672-60-06 11:05:00 Test Item Value Reference Range Interpretation Comments HIV. (test code = Negative *NA*(07/29/16 HIV.) 5:05 AM) [facility] AtlantaDgqjotaRJWAFCQHCS9209-48-41 11:05:00 Test Item Value Reference Range Interpretation Comments C3 Complement (test code = C3 92 88-201 Complement) [facility]2017-02-07 15:50:00 Test Item Value Reference Range Interpretation Comments eGFR (test code = eGFR) 25 [facility]2017-02-07 15:50:00 Test Item Value Reference Range Interpretation Comments BUN (test code = BUN) 55 7-22 [facility]2017-02-07 15:50:00 Test Item Value Reference Range Interpretation Comments CO2 (test code = CO2) 23 24-32 [facility]2017-02-07 15:50:00 Test Item Value Reference Range Interpretation Comments Chloride Lvl (test code = Chloride Lvl) 109 95-109 [facility]2017-02-07 15:50:00 Test Item Value Reference Range Interpretation Comments Glucose Lvl (test code = Glucose Lvl) 101 70-99 [facility]2017-02-07 15:50:00 Test Item Value Reference Range Interpretation Comments Potassium Lvl (test code = Potassium 4.0 3.5-5.1 Lvl) [facility]2017-02-07 15:50:00 Test Item Value Reference Range Interpretation Comments Sodium Lvl (test code = Sodium Lvl) 141 135-145 [facility]2017-02-07 15:50:00 Test Item Value Reference Range Interpretation Comments AGAP (test code = AGAP) 13.0 10.0-20.0 [facility]2017-02-07 15:50:00 Test Item Value Reference Range Interpretation Comments Calcium Lvl (test code = Calcium Lvl) 7.7 8.5-10.5 [facility]2017-02-07 15:50:00 Test Item Value Reference Range Interpretation Comments Creatinine Lvl (test code = Creatinine 2.49 0.50-1.40 Lvl) [facility] CenterAksupcvTDBZQFGZSU2604-19-06 15:50:00 Test Item Value Reference Range Interpretation Comments PT (test code = PT) 14.8 s 12.0-14.7 [facility] CenterEzjozkrHUFIOJLDAV4899-27-08 15:50:00 Test Item Value Reference Range Interpretation Comments PTT (test code = PTT) 40.8 s 22.9-35.8 [facility] CenterUxeunisPHHRMDXKDB3284-18-13 15:50:00 Test Item Value Reference Range Interpretation Comments INR (test code = INR) 1.14 0.85-1.17 [facility] CenterNfpwhztBQXIOOWUHL4645-67-20 15:50:00 Test Item Value Reference Range Interpretation Comments C3 Complement (test code = C3 94 88-201 Complement) [facility] CenterYfuopxmXINIAEWDEH1466-61-84 10:35:00 Test Item Value Reference Range Interpretation Comments Lymphocytes # (test code = Lymphocytes 1.7 1.0-5.5 #) [facility] CenterJrgnbmnAUSGRPAXKP5093-46-81 10:35:00 Test Item Value Reference Range Interpretation Comments Segs-Bands # (test code = Segs-Bands #) 2.7 1.5-8.1 [facility] CenterOszgwljRFDQYQVUVG5906-48-91 10:35:00 Test Item Value Reference Range Interpretation Comments Eosinophils # (test code 0.1 See_Comment [A utomated message] The = Eosinophils #) system whic h generated this result tra nsmitted reference range : <=0.5. The reference r leo was not used to int erpret this result as normal/abnormal . [facility] CenterAjiswimJDTZWUJGCW5263-24-50 10:35:00 Test Item Value Reference Range Interpretation Comments Monocytes # (test code 0.7 See_Comment [Aut omated message] The = Monocytes #) system which generated this result tra nsmitted reference range : <=0.8. The reference r leo was not used to int erpret this result as normal/abnormal . [facility] CenterEgktobjEAGYBQXGCZ7980-92-26 10:35:00 Test Item Value Reference Range Interpretation Comments Segs (test code = Segs) 51.3 45.0-75.0 [facility] CenterUeboladROUKBVZCVB3100-27-19 10:35:00 Test Item Value Reference Range Interpretation Comments Lymphocytes (test code = Lymphocytes) 31.6 20.0-40.0 [facility] CenterVbtoqzjGECNOWMFDK0356-30-42 10:35:00 Test Item Value Reference Range Interpretation Comments Monocytes (test code = Monocytes) 14.1 2.0-12.0 [facility] CenterBpakmezSTLINZLNOE5849-52-99 10:35:00 Test Item Value Reference Range Interpretation Comments Eosinophils (test code = 2.6 See_Comment [A utomated message] The Eosinophils) system which ge nerated this result tra nsmitted reference range : <=4.0. The reference r leo was not used to int erpret this result as normal/abnormal . [facility] CenterGcxodtvIIVGTZFMEU7905-76-55 10:35:00 Test Item Value Reference Range Interpretation Comments Basophils (test code = 0.4 See_Comment [Aut omated message] The Basophils) system which ge nerated this result tra nsmitted reference range : <=1.0. The reference r leo was not used to int erpret this result as normal/abnormal . [facility] CenterAxieajdJHJBITSEWG8137-11-05 10:35:00 Test Item Value Reference Range Interpretation Comments PB Smear Path Peripheral blood smear shows (test code = PB hypochromic normocytic Smear Path) anemia with anisopoikilocytsosis, no increase in schistocytes, slight polychromasia, a few estella cells, moderate thrombocytopenia. Impression: (1) no evidence of microangiopathic hemolysis, (2) RBC morphology is suggestive of anemia of chronic disease or iron deficiency anemia, and renal disease. CPT: 89901 [facility] CenterFqqwkzrMSYOBJOJEO7144-55-60 10:35:00 Test Item Value Reference Range Interpretation Comments Hct (test code = Hct) 29.3 36.0-48.0 [facility] CenterNbkpsbcKBVMZPQSPQ2097-15-12 10:35:00 Test Item Value Reference Range Interpretation Comments Hgb (test code = Hgb) 9.2 12.0-16.0 [facility] CenterKyrnjpvJELPNJZWWG0513-89-45 10:35:00 Test Item Value Reference Range Interpretation Comments RBC (test code = RBC) 3.54 4.20-5.40 [facility] CenterGavcpyiLLNRTRPGAA1061-82-77 10:35:00 Test Item Value Reference Range Interpretation Comments WBC (test code = WBC) 5.3 3.7-10.4 [facility] CenterVhtaswxMNUGVBDFGW3599-44-33 10:35:00 Test Item Value Reference Range Interpretation Comments Platelet (test code = Platelet) 87 133-450 [facility] CenterQdolarcQULNYVAEDG3642-77-92 10:35:00 Test Item Value Reference Range Interpretation Comments MCHC (test code = MCHC) 31.4 32.0-36.0 [facility] CenterGjxvkmeVXXGQZDZLH5407-41-27 10:35:00 Test Item Value Reference Range Interpretation Comments RDW (test code = RDW) 17.9 11.5-14.5 [facility] CenterCegtevnQZSOGVPHAZ2344-46-58 10:35:00 Test Item Value Reference Range Interpretation Comments MPV (test code = MPV) 10.9 7.4-10.4 [facility] CenterPvzmcenZTWTVCZRUY8977-91-12 10:35:00 Test Item Value Reference Range Interpretation Comments MCH (test code = MCH) 26.0 pg 27.0-31.0 [facility] CenterMgiabvfJESZUJELZE7138-61-18 10:35:00 Test Item Value Reference Range Interpretation Comments MCV (test code = MCV) 82.8 80.0-98.0 [facility] CenterJunsqnoZGGBNPGLSO5597-57-48 10:35:00 Test Item Value Reference Range Interpretation Comments HIV. (test code = Negative *NA*(07/28/16 HIV.) 4:35 AM) [facility]Tr[facility] [id number] 10:22:00 Test Item Value Reference Range Interpretation Comments Total Protein (test code = Total 5.2 6.4-8.4 Protein) [facility] [id number] 10:22:00 Test Item Value Reference Range Interpretation Comments ALT (test code = ALT) 822 See_Comment [Auto mated message] The system which ge nerated this result transmit rohit reference range : <=65. The reference range was not used to interpr et this result as reji l/abnormal. [facility]2017-02-06 10:22:00 Test Item Value Reference Range Interpretation Comments AST (test code = AST) 205 See_Comment [Auto mated message] The system which ge nerated this result transmit rohit reference range : <=37. The reference range was not used to interpr et this result as reji l/abnormal. [facility]2017-02-06 10:22:00 Test Item Value Reference Range Interpretation Comments Albumin Lvl (test code = Albumin Lvl) 1.8 3.5-5.0 [facility]2017-02-06 10:22:00 Test Item Value Reference Range Interpretation Comments BUN (test code = BUN) 54 7-22 [facility]2017-02-06 10:22:00 Test Item Value Reference Range Interpretation Comments Glucose Lvl (test code = Glucose Lvl) 143 70-99 [facility]2017-02-06 10:22:00 Test Item Value Reference Range Interpretation Comments Creatinine Lvl (test code = Creatinine 3.11 0.50-1.40 Lvl) [facility]2017-02-06 10:22:00 Test Item Value Reference Range Interpretation Comments B/C Ratio (test code = B/C Ratio) 17 6-25 [facility]2017-02-06 10:22:00 Test Item Value Reference Range Interpretation Comments AGAP (test code = AGAP) 16.8 10.0-20.0 [facility]2017-02-06 10:22:00 Test Item Value Reference Range Interpretation Comments Globulin (test code = Globulin) 3.4 2.7-4.2 [facility]2017-02-06 10:22:00 Test Item Value Reference Range Interpretation Comments A/G Ratio (test code = A/G Ratio) 0.5 0.7-1.6 [facility]2017-02-06 10:22:00 Test Item Value Reference Range Interpretation Comments Magnesium Lvl (test code = Magnesium 2.0 1.8-2.4 Lvl) [facility]2017-02-06 10:22:00 Test Item Value Reference Range Interpretation Comments Phosphorus (test code = Phosphorus) 3.7 2.5-4.5 [facility] CenterGtzumcrUTPYBZZBHF7671-93-31 10:22:00 Test Item Value Reference Range Interpretation Comments RDW (test code = RDW) 17.7 11.5-14.5 [facility] CenterJblzslkOYVEZSDBUJ5959-00-74 10:22:00 Test Item Value Reference Range Interpretation Comments MCHC (test code = MCHC) 32.9 32.0-36.0 [facility] CenterHcoxsfmJJUBCEDNQS5902-02-07 10:22:00 Test Item Value Reference Range Interpretation Comments Hct (test code = Hct) 25.4 36.0-48.0 [facility] CenterVwpjohyZUHKISWQVM4184-93-52 10:22:00 Test Item Value Reference Range Interpretation Comments MCH (test code = MCH) 26.4 pg 27.0-31.0 [facility] CenterDxzidbyERVASKYMTR1390-67-84 10:22:00 Test Item Value Reference Range Interpretation Comments MCV (test code = MCV) 80.3 80.0-98.0 [facility] CenterLxacmjdEJDEHIHDDQ4625-27-04 10:22:00 Test Item Value Reference Range Interpretation Comments MPV (test code = MPV) 11.4 7.4-10.4 [facility] CenterMkccspcSTRXQMIOZM7844-90-28 10:22:00 Test Item Value Reference Range Interpretation Comments Platelet (test code = Platelet) 74 133-450 [facility] CenterRyllziqWJPPZXSIMX2632-43-10 10:22:00 Test Item Value Reference Range Interpretation Comments RBC (test code = RBC) 3.16 4.20-5.40 [facility] CenterVvwxdvfNEWNWWWOGQ4038-09-94 10:22:00 Test Item Value Reference Range Interpretation Comments WBC (test code = WBC) 5.3 3.7-10.4 [facility] CenterJshhieeOKCZKEORQY9609-20-42 10:22:00 Test Item Value Reference Range Interpretation Comments Hgb (test code = Hgb) 8.4 12.0-16.0 [facility] CenterYjbbftoTHGIDREFAI0400-78-61 10:22:00 Test Item Value Reference Range Interpretation Comments Monocytes (test code = Monocytes) 14.5 2.0-12.0 [facility] CenterAdpbpxpIPGBKIXOMA2416-46-83 10:22:00 Test Item Value Reference Range Interpretation Comments Lymphocytes (test code = Lymphocytes) 29.8 20.0-40.0 [facility] CenterPepqcohPMSKGESBDR1949-65-15 10:22:00 Test Item Value Reference Range Interpretation Comments Eosinophils # (test code 0.1 See_Comment [A utomated message] The = Eosinophils #) system whic h generated this result tra nsmitted reference range : <=0.5. The reference r leo was not used to int erpret this result as normal/abnormal . [facility] CenterUqgllhqRJQNCONATV7388-42-77 10:22:00 Test Item Value Reference Range Interpretation Comments Monocytes # (test code 0.8 See_Comment [Aut omated message] The = Monocytes #) system which generated this result tra nsmitted reference range : <=0.8. The reference r leo was not used to int erpret this result as normal/abnormal . [facility] CenterFqojebxSDDNGSDABC0415-97-34 10:22:00 Test Item Value Reference Range Interpretation Comments Segs-Bands # (test code = Segs-Bands #) 2.9 1.5-8.1 [facility] CenterAbtseziTTZIEMQGDJ7181-70-29 10:22:00 Test Item Value Reference Range Interpretation Comments Lymphocytes # (test code = Lymphocytes 1.6 1.0-5.5 #) [facility] CenterTzrnasdRNPAPQACCV8740-46-28 10:22:00 Test Item Value Reference Range Interpretation Comments Basophils (test code = 0.4 See_Comment [Aut omated message] The Basophils) system which ge nerated this result tra nsmitted reference range : <=1.0. The reference r leo was not used to int erpret this result as normal/abnormal . [facility] CenterOomkhojGWOWBHJDRI4333-80-10 10:22:00 Test Item Value Reference Range Interpretation Comments Eosinophils (test code = 1.2 See_Comment [A utomated message] The Eosinophils) system which ge nerated this result tra nsmitted reference range : <=4.0. The reference r leo was not used to int erpret this result as normal/abnormal . [facility] CenterHgenuvoWSJWUSEIXA6309-20-76 10:22:00 Test Item Value Reference Range Interpretation Comments Segs (test code = Segs) 54.1 45.0-75.0 [facility] NIFECWOPZ4967-89-48 10:22:00 Test Item Value Reference Range Interpretation Comments Hgb A1C (test code = Hgb A1C) 8.9 [facility] RBJGSIL9085[facility]-40 10:22:00 Test Item Value Reference Range Interpretation Comments Total CK (test code = Total CK) 190 12-191 [facility] [employer] [id number] 10:22:00 Test Item Value Reference Range Interpretation Comments Calcium Lvl (test code = Calcium Lvl) 7.8 8.5-10.5 [facility] [employer] [id number] 10:22:00 Test Item Value Reference Range Interpretation Comments CO2 (test code = CO2) 21 24-32 [facility] [employer] [id number] 10:22:00 Test Item Value Reference Range Interpretation Comments Sodium Lvl (test code = Sodium Lvl) 140 135-145 [facility] [employer] [id number] 10:22:00 Test Item Value Reference Range Interpretation Comments Potassium Lvl (test code = Potassium 3.8 3.5-5.1 Lvl) [facility] [employer] [id number] 10:22:00 Test Item Value Reference Range Interpretation Comments Chloride Lvl (test code = Chloride Lvl) 106 95-109 [facility] [employer] [id number] 10:22:00 Test Item Value Reference Range Interpretation Comments Bili Total (test code = Bili Total) 0.4 0.2-1.3 [facility] [employer] [id number] 10:22:00 Test Item Value Reference Range Interpretation Comments Alk Phos (test code = Alk Phos) 74 39-136 [facility] [employer] [id number] 10:22:00 Test Item Value Reference Range Interpretation Comments eGFR (test code = eGFR) 19 [facility] [id number] 17:40:00 Test Item Value Reference Range Interpretation Comments Total CK (test code = Total CK) 344 12-191 [facility] HospitalZmwdnfcCIPKDPMNHP7963-71-71 17:40:00 Test Item Value Reference Range Interpretation Comments IVETTE (test code = IVETTE) Positive *ABN*(07/26/16 11:40 AM) [facility] HospitalMyvghdqGMADFZEGDC3955-96-91 17:40:00 Test Item Value Reference Range Interpretation Comments FIRE INVESTIGATOR Ab (test 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 [facility] HospitalDnvlnulFPXEBKQVRY5479-28-05 17:40:00 Test Item Value Reference Range Interpretation Comments SS-B (La) Ab (test code = SS-B (La) Ab) no gt [facility] HospitalWxcncuwBNSATMLEJX3287-83-97 17:40:00 Test Item Value Reference Range Interpretation Comments SS-A (Ro) Ab (test code = SS-A (Ro) Ab) no gt [facility] HospitalZticnzmXWVMMEIOXZ6278-70-15 17:40:00 Test Item Value Reference Range Interpretation Comments DNA Ab (DS) (test Negative (07/26/16 11:40 code = DNA Ab (DS)) AM) [facility] HospitalAqzbbewYIWHIPAFCT1784-13-02 17:40:00 Test Item Value Reference Range Interpretation Comments IVETTE Titer (test code = 1:40 *ABN*(07/26/16 IVETTE Titer) 11:40 AM) [facility]2017-02-05 17:40:00 Test Item Value Reference Range Interpretation Comments U Sodium (test code = U Sodium) 21 [facility] CenterDyhdynrILZJBBGXUU1498-68-78 14:00:00 Test Item Value Reference Range Interpretation Comments INR (test code = INR) 1.11 0.85-1.17 [facility]UhppbptPMCAMYCCWA0519-16-51 14:00:00 Test Item Value Reference Range Interpretation Comments PT (test code = PT) 14.5 s 12.0-14.7 [facility] HospitalIkgfphrGVYHUBYIAJ1822-55-61 14:00:00 Test Item Value Reference Range Interpretation Comments Hep A IgM (test code Negative *NA*(07/26/16 = Hep A IgM) 8:00 AM) [facility] HospitalAenrauaHLXPXRRWBE1684-01-05 14:00:00 Test Item Value Reference Range Interpretation Comments Hep B Core IgM (test Negative *NA*(07/26/16 code = Hep B Core 8:00 AM) IgM) [facility] HospitalDymhdshIFKCWMPPMD8219-84-04 14:00:00 Test Item Value Reference Range Interpretation Comments Hep C Ab (test code = Negative *NA*(07/26/16 Hep C Ab) 8:00 AM) [facility] HospitalCbvjvzcSDDCWYFSFT1289-24-72 14:00:00 Test Item Value Reference Range Interpretation Comments Hep Bs Ag (test code Negative *NA*(07/26/16 = Hep Bs Ag) 8:00 AM) [facility]2017-02-05 10:42:00 Test Item Value Reference Range Interpretation Comments B/C Ratio (test code = B/C Ratio) 17 6-25 [facility]2017-02-05 10:42:00 Test Item Value Reference Range Interpretation Comments ALT (test code = ALT) 1232 See_Comment [Auto mated message] The system which ge nerated this result transmit rohit reference range : <=65. The reference range was not used to interpr et this result as reji l/abnormal. [facility]2017-02-05 10:42:00 Test Item Value Reference Range Interpretation Comments A/G Ratio (test code = A/G Ratio) 0.5 0.7-1.6 [facility]2017-02-05 10:42:00 Test Item Value Reference Range Interpretation Comments Bili Total (test code = Bili Total) 0.3 0.2-1.3 [facility]2017-02-05 10:42:00 Test Item Value Reference Range Interpretation Comments Alk Phos (test code = Alk Phos) 79 39-136 [facility]2017-02-05 10:42:00 Test Item Value Reference Range Interpretation Comments AST (test code = AST) 586 See_Comment [Auto mated message] The system which ge nerated this result transmit rohit reference range : <=37. The reference range was not used to interpr et this result as reji l/abnormal. [facility]2017-02-05 10:42:00 Test Item Value Reference Range Interpretation Comments Total Protein (test code = Total 5.5 6.4-8.4 Protein) [facility]2017-02-05 10:42:00 Test Item Value Reference Range Interpretation Comments Globulin (test code = Globulin) 3.7 2.7-4.2 [facility]2017-02-05 10:42:00 Test Item Value Reference Range Interpretation Comments Albumin Lvl (test code = Albumin Lvl) 1.8 3.5-5.0 [facility]2017-02-05 10:42:00 Test Item Value Reference Range Interpretation Comments Magnesium Lvl (test code = Magnesium 2.1 1.8-2.4 Lvl) [facility] CenterQopivvuGAMATDFPXW8347-54-66 10:42:00 Test Item Value Reference Range Interpretation Comments Acanthocyte (test code = Acanthocyte) Slight [facility] CenterTacefowMJVVOBBICX8921-23-48 10:42:00 Test Item Value Reference Range Interpretation Comments Rouleaux (test code = Present *ABN*(07/26/16 Rouleaux) 4:42 AM) [facility] CenterRhihgatVYGDTDJPGC9727-42-16 10:42:00 Test Item Value Reference Range Interpretation Comments Anisocyte (test code = 1+ *ABN*(07/26/16 4:42 Anisocyte) AM) [facility] CenterWanwxpvECOHHFGOKE7792-96-25 10:42:00 Test Item Value Reference Range Interpretation Comments Basophils # (test code 0.1 See_Comment [Aut omated message] The = Basophils #) system which generated this result tra nsmitted reference range : <=0.2. The reference r leo was not used to int erpret this result as normal/abnormal . [facility] CenterSabclokZNDKHMFSWC0691-19-34 10:42:00 Test Item Value Reference Range Interpretation Comments Large Plt (test code Moderate *ABN*(07/26/16 = Large Plt) 4:42 AM) [facility] CenterQuifytcSDCSKFLAGY9176-83-40 10:42:00 Test Item Value Reference Range Interpretation Comments C4 Complement (test code = C4 42 16-47 Complement) [facility] AND RACUR1722-08-22 16:34:00 Test Item Value Reference Range Interpretation Comments UA Sq Epi (test code = UA Sq Epi) None Seen [facility] AND [id number] 16:34:00 Test Item Value Reference Range Interpretation Comments UA Waxy Cast (test code = UA Waxy Cast) 1 [facility] AND [id number] 16:34:00 Test Item Value Reference Range Interpretation Comments UA Hyal Cast (test 4 See_Comment [Automat ed message] The code = UA Hyal Cast) system which generated this result transmit rohit reference range : <=2. The reference range was not used to interpr et this result as reji l/abnormal. [facility] AND [id number] 16:34:00 Test Item Value Reference Range Interpretation Comments UA Bacteria (test code = UA Occasional /HPF Bacteria) [facility] AND [id number] 16:34:00 Test Item Value Reference Range Interpretation Comments UA Mucus (test code = UA Mucus) Few /LPF [facility] AND [id number] 16:34:00 Test Item Value Reference Range Interpretation Comments UA Amorph Destiny (test code = Occasional /HPF UA Amorph Destiny) [facility] AND [id number] 16:34:00 Test Item Value Reference Range Interpretation Comments UA Leuk Est (test Negative (07/25/16 10:34 code = UA Leuk Est) AM) [facility] AND [id number] 16:34:00 Test Item Value Reference Range Interpretation Comments UA Nitrite (test code Negative (07/25/16 10:34 = UA Nitrite) AM) [facility] AND [id number] 16:34:00 Test Item Value Reference Range Interpretation Comments UA RBC (test code = 2 See_Comment [Automa rohit message] The UA RBC) system which ge nerated this result transmit rohit reference range : <=2. The reference range was not used to interpr et this result as reji l/abnormal. [facility] AND [id number] 16:34:00 Test Item Value Reference Range Interpretation Comments UA WBC (test code = 6 See_Comment [Automa rohit message] The UA WBC) system which ge nerated this result transmit rohit reference range : <=5. The reference range was not used to interpr et this result as reji l/abnormal. [facility] AND [id number] 16:34:00 Test Item Value Reference Range Interpretation Comments UA Urobilinogen (test code = UA 2.0 0.1-1.0 Urobilinogen) [facility] AND [id number] 16:34:00 Test Item Value Reference Range Interpretation Comments UA Ketones (test code = UA Negative mg/dL Ketones) [facility] AND [id number] 16:34:00 Test Item Value Reference Range Interpretation Comments UA Glucose (test code = UA Glucose) 70 mg/dL [facility] AND [id number] 16:34:00 Test Item Value Reference Range Interpretation Comments UA Blood (test code = Negative (07/25/16 10:34 UA Blood) AM) [facility] [id number] 16:34:00 Test Item Value Reference Range Interpretation Comments UA Bili (test code = Negative *NA*(07/25/16 UA Bili) 10:34 AM) [facility] [id number] 16:34:00 Test Item Value Reference Range Interpretation Comments UA Protein (test code = UA >=300 mg/dL Protein) [facility] [id number] 16:34:00 Test Item Value Reference Range Interpretation Comments UA Spec Grav (test code = UA Spec Grav) 1.012 [facility] [id number] 16:34:00 Test Item Value Reference Range Interpretation Comments UA pH (test code = UA pH) 5.5 5.0-8.0 [facility] [id number] 16:34:00 Test Item Value Reference Range Interpretation Comments UA Turbidity (test code Slight *ABN*(07/25/16 = UA Turbidity) 10:34 AM) [facility] [id number] 16:34:00 Test Item Value Reference Range Interpretation Comments UA Color (test code = Dark Yellow *NA*(07/25/16 UA Color) 10:34 AM) [facility] [id number] 16:34:00 Test Item Value Reference Range Interpretation Comments UA Gran Cast (test code = UA Gran Cast) 9 [facility] [id number] 16:34:00 Test Item Value Reference Range Interpretation Comments U Sodium (test code = U Sodium) 30 [facility] [id number] 16:34:00 Test Item Value Reference Range Interpretation Comments U Prot/Creat (test code = U Prot/Creat) 3.1 [facility] [id number] 16:34:00 Test Item Value Reference Range Interpretation Comments U Protein (test code = U Protein) 420.9 [facility] [id number] 16:34:00 Test Item Value Reference Range Interpretation Comments U Creatinine (test code = U 136.00 Creatinine) [facility] [employer] [id number] 08:55:00 Test Item Value Reference Range Interpretation Comments Magnesium Lvl (test code = Magnesium 2.0 1.8-2.4 Lvl) [facility] [employer] [id number] 08:55:00 Test Item Value Reference Range Interpretation Comments Phosphorus (test code = Phosphorus) 5.2 2.5-4.5 [facility]2017-02-03 17:29:00 Test Item Value Reference Range Interpretation Comments Troponin-I (test code 0.28 See_Comment [Auto mated message] The = Troponin-I) system which g enerated this result transmit rohit reference range : <=0.40. The reference r leo was not used to interpr et this result as reji l/abnormal. [facility] [employer]2017-02-03 17:29:00 Test Item Value Reference Range Interpretation Comments Total CK (test code = Total CK) 2616 12-191 [facility] [employer]2017-02-03 17:29:00 Test Item Value Reference Range Interpretation Comments Troponin-T (test code 0.144 See_Comment [Auto mated message] The = Troponin-T) system which g enerated this result transmit rohit reference range : <=0.100. The reference r leo was not used to interpr et this result as reji l/abnormal. [facility] [employer]2017-02-03 17:29:00 Test Item Value Reference Range Interpretation Comments CK MB Index (test 0.2 See_Comment [Automate d message] The code = CK MB Index) system w [facility] generated this result transmit rohit reference range : <=2.5. The reference range was not used to interpr et this result as reji l/abnormal. [facility] [employer]2017-02-03 17:29:00 Test Item Value Reference Range Interpretation Comments CK MB (test code = CK MB) 6.3 0.5-3.6 [facility]2017-02-03 11:20:00 Test Item Value Reference Range Interpretation Comments Troponin-I (test code 0.38 See_Comment [Auto mated message] The = Troponin-I) system which g enerated this result transmit rohit reference range : <=0.40. The reference r leo was not used to interpr et this result as reji l/abnormal. [facility] [employer]2017-02-03 11:20:00 Test Item Value Reference Range Interpretation Comments Troponin-T (test code 0.173 See_Comment [Auto mated message] The = Troponin-T) system which g enerated this result transmit rohit reference range : <=0.100. The reference r leo was not used to interpr et this result as reji l/abnormal. [facility] [employer]2017-02-03 11:20:00 Test Item Value Reference Range Interpretation Comments CK MB Index (test 0.2 See_Comment [Automate d message] The code = CK MB Index) system w [facility] generated this result transmit rohit reference range : <=2.5. The reference range was not used to interpr et this result as reji l/abnormal. [facility] [employer]2017-02-03 11:20:00 Test Item Value Reference Range Interpretation Comments CK MB (test code = CK MB) 5.6 0.5-3.6 [facility] [employer]2017-02-03 11:20:00 Test Item Value Reference Range Interpretation Comments Phosphorus (test code = Phosphorus) 5.5 2.5-4.5 [facility] [employer]2017-02-03 06:18:00 Test Item Value Reference Range Interpretation Comments BNP (test code = BNP) 701 [facility] [employer]2017-02-03 04:59:27 Test Item Value Reference Range Interpretation Comments Troponin-I (test code 0.57 See_Comment [Auto mated message] The = Troponin-I) system which g enerated this result transmit rohit reference range : <=0.40. The reference r leo was not used to interpr et this result as reji l/abnormal. [facility] [employer]2016-12-26 10:22:00 Test Item Value Reference Range Interpretation Comments BNP (test code = BNP) 526 [facility] [employer]2016-12-26 10:22:00 Test Item Value Reference Range Interpretation Comments Magnesium Lvl (test code = Magnesium 2.1 1.8-2.4 Lvl) [facility] [employer]2016-12-26 10:22:00 Test Item Value Reference Range Interpretation Comments Glucose Lvl (test code = Glucose Lvl) 117 70-99 [facility] [employer]2016-12-26 10:22:00 Test Item Value Reference Range Interpretation Comments BUN (test code = BUN) 41 7-22 [facility]2016-12-26 10:22:00 Test Item Value Reference Range Interpretation Comments Creatinine Lvl (test code = Creatinine 2.00 0.50-1.40 Lvl) [facility]2016-12-26 10:22:00 Test Item Value Reference Range Interpretation Comments Calcium Lvl (test code = Calcium Lvl) 9.0 8.5-10.5 [facility]2016-12-26 10:22:00 Test Item Value Reference Range Interpretation Comments Chloride Lvl (test code = Chloride Lvl) 102 95-109 [facility]2016-12-26 10:22:00 Test Item Value Reference Range Interpretation Comments CO2 (test code = CO2) 33 24-32 [facility]2016-12-26 10:22:00 Test Item Value Reference Range Interpretation Comments Sodium Lvl (test code = Sodium Lvl) 144 135-145 [facility]2016-12-26 10:22:00 Test Item Value Reference Range Interpretation Comments Potassium Lvl (test code = Potassium 4.0 3.5-5.1 Lvl) [facility]2016-12-26 10:22:00 Test Item Value Reference Range Interpretation Comments eGFR (test code = eGFR) 32 [facility]2016-12-26 10:22:00 Test Item Value Reference Range Interpretation Comments AGAP (test code = AGAP) 13.0 10.0-20.0 [facility]2016-12-26 10:22:00 Test Item Value Reference Range Interpretation Comments Phosphorus (test code = Phosphorus) 4.6 2.5-4.5 [facility] CenterIkitlhyULGIFMRDKZ5931-98-79 10:22:00 Test Item Value Reference Range Interpretation Comments RBC (test code = RBC) 3.68 4.20-5.40 [facility] CenterZpwpdhmNPKDIYHVTY1135-20-14 10:22:00 Test Item Value Reference Range Interpretation Comments Hgb (test code = Hgb) 9.9 12.0-16.0 [facility] CenterZoikcaxVEJZLJYEKQ3155-24-05 10:22:00 Test Item Value Reference Range Interpretation Comments MCH (test code = MCH) 26.8 pg 27.0-31.0 [facility] CenterVmnyrkjNIOSILEVEH5651-91-29 10:22:00 Test Item Value Reference Range Interpretation Comments MCHC (test code = MCHC) 34.2 32.0-36.0 [facility] CenterRofzbjzRAKHBOXOVM7936-52-44 10:22:00 Test Item Value Reference Range Interpretation Comments MCV (test code = MCV) 78.3 80.0-98.0 [facility] CenterRveunetSFYBQMXGCD2605-91-22 10:22:00 Test Item Value Reference Range Interpretation Comments Hct (test code = Hct) 28.8 36.0-48.0 [facility] CenterRlzkvenGRJSPYTKMD9153-61-56 10:22:00 Test Item Value Reference Range Interpretation Comments Platelet (test code = Platelet) 191 133-450 [facility] CenterOwttksxYSFKKQGXAW7173-12-15 10:22:00 Test Item Value Reference Range Interpretation Comments MPV (test code = MPV) 9.5 7.4-10.4 [facility] CenterOzpbkvbIOIAHZYSIX4245-50-64 10:22:00 Test Item Value Reference Range Interpretation Comments RDW (test code = RDW) 15.3 11.5-14.5 [facility] CenterAvosuvpSEORRFRVQI0657-72-39 10:22:00 Test Item Value Reference Range Interpretation Comments WBC (test code = WBC) 5.6 3.7-10.4 [facility] CenterYyczueePEYGFKOBXQ9361-94-69 10:22:00 Test Item Value Reference Range Interpretation Comments Eosinophils # (test code 0.5 See_Comment [A utomated message] The = Eosinophils #) system whic h generated this result tra nsmitted reference range : <=0.5. The reference r leo was not used to int erpret this result as normal/abnormal . [facility] CenterQgxdxlvUJFTRTKYPO8118-03-43 10:22:00 Test Item Value Reference Range Interpretation Comments Microcyte (test code = 1+ *ABN*(06/15/16 Microcyte) 4:22 AM) [facility] CenterYuvvuzbSAAIXQFZWX5674-11-33 10:22:00 Test Item Value Reference Range Interpretation Comments Basophils # (test code 0.1 See_Comment [Aut omated message] The = Basophils #) system which generated this result tra nsmitted reference range : <=0.2. The reference r leo was not used to int erpret this result as normal/abnormal . [facility] CenterCiqrivjHQKBOCLZQH9642-57-92 10:22:00 Test Item Value Reference Range Interpretation Comments Lymphocytes (test code = Lymphocytes) 33.5 20.0-40.0 [facility] CenterAsmiqwzIYOESZUSLC0627-61-25 10:22:00 Test Item Value Reference Range Interpretation Comments Segs (test code = Segs) 47.6 45.0-75.0 [facility] CenterNtiyeycZXDTHLKZXB3982-86-40 10:22:00 Test Item Value Reference Range Interpretation Comments Monocytes (test code = Monocytes) 8.4 2.0-12.0 [facility] CenterPjslanuGIEUQENTCY7590-70-93 10:22:00 Test Item Value Reference Range Interpretation Comments Eosinophils (test code = 9.4 See_Comment [A utomated message] The Eosinophils) system which ge nerated this result tra nsmitted reference range : <=4.0. The reference r leo was not used to int erpret this result as normal/abnormal . [facility] CenterDdigoodTYWRIDSCSX7484-69-84 10:22:00 Test Item Value Reference Range Interpretation Comments Segs-Bands # (test code = Segs-Bands #) 2.6 1.5-8.1 [facility] CenterMkvcvhjFNVRSEQLPJ2793-29-64 10:22:00 Test Item Value Reference Range Interpretation Comments Lymphocytes # (test code = Lymphocytes 1.9 1.0-5.5 #) [facility] CenterJfkekvsTKNNNSRXTC7011-65-84 10:22:00 Test Item Value Reference Range Interpretation Comments Basophils (test code = 1.1 See_Comment [Aut omated message] The Basophils) system which ge nerated this result tra nsmitted reference range : <=1.0. The reference r leo was not used to int erpret this result as normal/abnormal . [facility] CenterHbamoinLATKPYYJXC9881-12-56 10:22:00 Test Item Value Reference Range Interpretation Comments Monocytes # (test code 0.5 See_Comment [Aut omated message] The = Monocytes #) system which generated this result tra nsmitted reference range : <=0.8. The reference r leo was not used to int erpret this result as normal/abnormal . [facility]2016-12-25 11:03:00 Test Item Value Reference Range Interpretation Comments Phosphorus (test code = Phosphorus) 4.8 2.5-4.5 [facility]2016-12-25 11:03:00 Test Item Value Reference Range Interpretation Comments Magnesium Lvl (test code = Magnesium 2.0 1.8-2.4 Lvl) [facility]2016-12-25 11:03:00 Test Item Value Reference Range Interpretation Comments eGFR (test code = eGFR) 32 [facility]2016-12-25 11:03:00 Test Item Value Reference Range Interpretation Comments Chloride Lvl (test code = Chloride Lvl) 101 95-109 [facility]2016-12-25 11:03:00 Test Item Value Reference Range Interpretation Comments Potassium Lvl (test code = Potassium 4.4 3.5-5.1 Lvl) [facility]2016-12-25 11:03:00 Test Item Value Reference Range Interpretation Comments BUN (test code = BUN) 37 7-22 [facility]2016-12-25 11:03:00 Test Item Value Reference Range Interpretation Comments Glucose Lvl (test code = Glucose Lvl) 119 70-99 [facility]2016-12-25 11:03:00 Test Item Value Reference Range Interpretation Comments Creatinine Lvl (test code = Creatinine 2.00 0.50-1.40 Lvl) [facility]2016-12-25 11:03:00 Test Item Value Reference Range Interpretation Comments Sodium Lvl (test code = Sodium Lvl) 142 135-145 [facility]2016-12-25 11:03:00 Test Item Value Reference Range Interpretation Comments Calcium Lvl (test code = Calcium Lvl) 8.7 8.5-10.5 [facility]2016-12-25 11:03:00 Test Item Value Reference Range Interpretation Comments CO2 (test code = CO2) 32 24-32 [facility]2016-12-25 11:03:00 Test Item Value Reference Range Interpretation Comments AGAP (test code = AGAP) 13.4 10.0-20.0 [facility] CenterZmxiaspCGZORDWXUS6683-20-74 11:03:00 Test Item Value Reference Range Interpretation Comments Eosinophils (test code = 10.3 See_Comment [A utomated message] The Eosinophils) system which ge nerated this result tra nsmitted reference range : <=4.0. The reference r leo was not used to int erpret this result as normal/abnormal . [facility] CenterLbabegvQPTEHPNDRR8946-90-35 11:03:00 Test Item Value Reference Range Interpretation Comments Basophils # (test code 0.1 See_Comment [Aut omated message] The = Basophils #) system which generated this result tra nsmitted reference range : <=0.2. The reference r leo was not used to int erpret this result as normal/abnormal . [facility] CenterDfobsfoSJPFHAQTBM2559-04-73 11:03:00 Test Item Value Reference Range Interpretation Comments Eosinophils # (test code 0.5 See_Comment [A utomated message] The = Eosinophils #) system whic h generated this result tra nsmitted reference range : <=0.5. The reference r leo was not used to int erpret this result as normal/abnormal . [facility] CenterVvaagnhHMTTMCOKIA1366-88-61 11:03:00 Test Item Value Reference Range Interpretation Comments Monocytes # (test code 0.5 See_Comment [Aut omated message] The = Monocytes #) system which generated this result tra nsmitted reference range : <=0.8. The reference r leo was not used to int erpret this result as normal/abnormal . [facility] CenterIkecjlhYVNRAGLQTZ2707-12-83 11:03:00 Test Item Value Reference Range Interpretation Comments Segs-Bands # (test code = Segs-Bands #) 2.1 1.5-8.1 [facility] CenterDaopcmoVBEYVISQNA3165-83-43 11:03:00 Test Item Value Reference Range Interpretation Comments Basophils (test code = 1.2 See_Comment [Aut omated message] The Basophils) system which ge nerated this result tra nsmitted reference range : <=1.0. The reference r leo was not used to int erpret this result as normal/abnormal . [facility] CenterPsqxngmYWZCLCWEYB5972-61-99 11:03:00 Test Item Value Reference Range Interpretation Comments Lymphocytes # (test code = Lymphocytes 1.9 1.0-5.5 #) [facility] CenterVxwdgqkLEDIRVFINY2843-11-09 11:03:00 Test Item Value Reference Range Interpretation Comments Segs (test code = Segs) 42.5 45.0-75.0 [facility] CenterFnpchumASKZDYMSDL2416-35-69 11:03:00 Test Item Value Reference Range Interpretation Comments Lymphocytes (test code = Lymphocytes) 37.0 20.0-40.0 [facility] CenterCdezxhaQPRJSWUWGT8431-59-49 11:03:00 Test Item Value Reference Range Interpretation Comments Monocytes (test code = Monocytes) 9.0 2.0-12.0 [facility] CenterTztuvfoAABXAZEFTV7678-09-19 11:03:00 Test Item Value Reference Range Interpretation Comments MPV (test code = MPV) 9.8 7.4-10.4 [facility] CenterRnngngoMLYVCALKWC0835-51-52 11:03:00 Test Item Value Reference Range Interpretation Comments WBC (test code = WBC) 5.0 3.7-10.4 [facility] CenterKsbwjmrPCVSEILXAQ8347-65-82 11:03:00 Test Item Value Reference Range Interpretation Comments RBC (test code = RBC) 3.57 4.20-5.40 [facility] CenterOppcbshCHUVCBYBNE2390-49-10 11:03:00 Test Item Value Reference Range Interpretation Comments Hgb (test code = Hgb) 9.4 12.0-16.0 [facility] CenterVhzlcvaVSSLQIPYDN7095-60-59 11:03:00 Test Item Value Reference Range Interpretation Comments Hct (test code = Hct) 28.5 36.0-48.0 [facility] CenterEkejibuBOEXIRSIGF6895-40-14 11:03:00 Test Item Value Reference Range Interpretation Comments Platelet (test code = Platelet) 183 133-450 [facility] CenterIqxjxbjHVSJTEPXIA8425-15-01 11:03:00 Test Item Value Reference Range Interpretation Comments MCV (test code = MCV) 79.9 80.0-98.0 [facility] CenterDhlvvneNCCRBDEHDG1300-61-61 11:03:00 Test Item Value Reference Range Interpretation Comments MCH (test code = MCH) 26.3 pg 27.0-31.0 [facility] CenterXazajgqZQDPQVAGJL5603-01-59 11:03:00 Test Item Value Reference Range Interpretation Comments MCHC (test code = MCHC) 33.0 32.0-36.0 [facility] CenterAjcvnbhCEITNUWEIE3599-20-89 11:03:00 Test Item Value Reference Range Interpretation Comments RDW (test code = RDW) 15.9 11.5-14.5 [facility] YZSM8815-08-43 10:26:00 Test Item Value Reference Range Interpretation Comments U Prot/Creat (test code = U Prot/Creat) 6.9 [facility] VMXG3275-03-54 10:26:00 Test Item Value Reference Range Interpretation Comments U Creatinine (test code = U Creatinine) 19.30 [facility]2016-12-24 10:26:00 Test Item Value Reference Range Interpretation Comments U Protein (test code = U Protein) 133.1 [facility]BvscagrOZZLPFAGXN6876-55-48 09:20:00 Test Item Value Reference Range Interpretation Comments MPV (test code = MPV) 9.7 7.4-10.4 [facility] HospitalLicejafVOQUQSYUXC0890-90-91 09:20:00 Test Item Value Reference Range Interpretation Comments Platelet (test code = Platelet) 184 133-450 [facility]RtwcevuGAOCXTERSR7846-76-95 09:20:00 Test Item Value Reference Range Interpretation Comments RDW (test code = RDW) 15.9 11.5-14.5 [facility] HospitalGiyjnchFLKYNQSSTJ5493-01-14 09:20:00 Test Item Value Reference Range Interpretation Comments MCV (test code = MCV) 79.3 80.0-98.0 [facility] CenterQvmvypzCLXBEWHXCA1756-81-23 09:20:00 Test Item Value Reference Range Interpretation Comments MCHC (test code = MCHC) 33.0 32.0-36.0 [facility] MichiganJfsbawgKCGIVCUSUH0877-09-59 09:20:00 Test Item Value Reference Range Interpretation Comments MCH (test code = MCH) 26.2 pg 27.0-31.0 [facility] HospitalGvkxagcPZHJGBLDYO6541-39-25 09:20:00 Test Item Value Reference Range Interpretation Comments Hct (test code = Hct) 29.4 36.0-48.0 [facility] CenterShxsgbtESLZYDDGCI5107-12-42 09:20:00 Test Item Value Reference Range Interpretation Comments Hgb (test code = Hgb) 9.7 12.0-16.0 [facility] CenterJddlymuQDLYOONZFN4944-68-57 09:20:00 Test Item Value Reference Range Interpretation Comments RBC (test code = RBC) 3.70 4.20-5.40 [facility] HospitalNypcihkNHGSAJMVJP6677-32-18 09:20:00 Test Item Value Reference Range Interpretation Comments WBC (test code = WBC) 5.7 3.7-10.4 [facility] CenterJhxxxsdUDZXEQTOUH6585-81-00 09:20:00 Test Item Value Reference Range Interpretation Comments Basophils # (test code 0.1 See_Comment [Aut omated message] The = Basophils #) system which generated this result tra nsmitted reference range : <=0.2. The reference r leo was not used to int erpret this result as normal/abnormal . [facility] CenterBwjwlpyXRYWDMLVZO7595-09-38 09:20:00 Test Item Value Reference Range Interpretation Comments Lymphocytes # (test code = Lymphocytes 2.2 1.0-5.5 #) [facility] CenterHgvltcdSAGLQNDYYJ4154-91-14 09:20:00 Test Item Value Reference Range Interpretation Comments Eosinophils # (test code 0.5 See_Comment [A utomated message] The = Eosinophils #) system whic h generated this result tra nsmitted reference range : <=0.5. The reference r leo was not used to int erpret this result as normal/abnormal . [facility] CenterOmaxswyVDHTPNWBEB3395-68-95 09:20:00 Test Item Value Reference Range Interpretation Comments Monocytes # (test code 0.5 See_Comment [Aut omated message] The = Monocytes #) system which generated this result tra nsmitted reference range : <=0.8. The reference r leo was not used to int erpret this result as normal/abnormal . [facility] CenterLplefqmTYCRQCEYLV3206-69-41 09:20:00 Test Item Value Reference Range Interpretation Comments Basophils (test code = 1.1 See_Comment [Aut omated message] The Basophils) system which ge nerated this result tra nsmitted reference range : <=1.0. The reference r leo was not used to int erpret this result as normal/abnormal . [facility] CenterChzjvydWHYIZZUTCY6446-11-23 09:20:00 Test Item Value Reference Range Interpretation Comments Segs-Bands # (test code = Segs-Bands #) 2.3 1.5-8.1 [facility] CenterYbjiwpaDRNSFQLJKZ0962-42-54 09:20:00 Test Item Value Reference Range Interpretation Comments Eosinophils (test code = 9.5 See_Comment [A utomated message] The Eosinophils) system which ge nerated this result tra nsmitted reference range : <=4.0. The reference r leo was not used to int erpret this result as normal/abnormal . [facility] CenterAzdqelzQYNBNHPOYK4332-64-25 09:20:00 Test Item Value Reference Range Interpretation Comments Monocytes (test code = Monocytes) 9.0 2.0-12.0 [facility] CenterCkzklsaOWRCITNPPO0806-64-39 09:20:00 Test Item Value Reference Range Interpretation Comments Lymphocytes (test code = Lymphocytes) 38.9 20.0-40.0 [facility] CenterUgqzmtxXIMSQZJDKN0001-86-22 09:20:00 Test Item Value Reference Range Interpretation Comments Segs (test code = Segs) 41.5 45.0-75.0 [facility] LCAIL6330-54-55 06:34:00 Test Item Value Reference Range Interpretation Comments Magnesium Lvl (test code = Magnesium 1.7 1.8-2.4 Lvl) [facility]2016-12-24 06:34:00 Test Item Value Reference Range Interpretation Comments Phosphorus (test code = Phosphorus) 4.2 2.5-4.5 [facility]Jdr[facility]ttiEWEESYYXQCJK3318-87-52 06:34:00 Test Item Value Reference Range Interpretation Comments AGAP (test code = AGAP) 14.3 10.0-20.0 [facility]YmqbxlsNOEWUWSACENK5494-23-62 06:34:00 Test Item Value Reference Range Interpretation Comments eGFR (test code = eGFR) 41 [facility] HospitalEiriyeuRXYBVALGSYVN5711-90-83 06:34:00 Test Item Value Reference Range Interpretation Comments Chloride Lvl (test code = Chloride Lvl) 103 95-109 [facility] HospitalQfaurpeERXBCNTOKWLA7935-74-20 06:34:00 Test Item Value Reference Range Interpretation Comments Calcium Lvl (test code = Calcium Lvl) 8.5 8.5-10.5 [facility] HospitalOnoetskKJPTFWSVHTNO1530-55-26 06:34:00 Test Item Value Reference Range Interpretation Comments CO2 (test code = CO2) 32 24-32 [facility]HfxjhdrJZMGLWZQIGZA3910-76-92 06:34:00 Test Item Value Reference Range Interpretation Comments Glucose Lvl (test code = Glucose Lvl) 173 70-99 [facility] HospitalUadahqnXKXAICMRQAER8552-33-85 06:34:00 Test Item Value Reference Range Interpretation Comments BUN (test code = BUN) 37 7-22 [facility] HospitalAhnkpslFIKHYLIYMWNZ4554-43-76 06:34:00 Test Item Value Reference Range Interpretation Comments Creatinine Lvl (test code = Creatinine 1.63 0.50-1.40 Lvl) [facility] HospitalLpejjddDWETPKVHUHRB5981-83-67 06:34:00 Test Item Value Reference Range Interpretation Comments Potassium Lvl (test code = Potassium 4.3 3.5-5.1 Lvl) [facility] HospitalYdjxewfIZPXTERIEEOT9759-97-98 06:34:00 Test Item Value Reference Range Interpretation Comments Sodium Lvl (test code = Sodium Lvl) 145 135-145 [facility] CenterCHEM URDYN2419-86-94 16:21:00 Test Item Value Reference Range Interpretation Comments Ammonia (test code = Ammonia) 48.0 [facility] CenterZvqobboGTQCTLDHHM4097-70-91 14:56:00 Test Item Value Reference Range Interpretation Comments IVETTE Interp (test code Pattern appears = IVETTE Interp) Nucleolar. [facility] CenterVcfuezkWVKYCUODAK4518-94-13 14:56:00 Test Item Value Reference Range Interpretation Comments IVETTE Titer (test code = 1:40 *ABN*(06/11/16 IVETTE Titer) 8:56 AM) [facility] CenterApfpytuZQXKWLXWSB7463-12-05 14:56:00 Test Item Value Reference Range Interpretation Comments Hep Bs Ag (test code Negative *NA*(06/11/16 = Hep Bs Ag) 8:56 AM) [facility] CenterArubqxzDJVMUOOYJS7098-27-00 14:56:00 Test Item Value Reference Range Interpretation Comments Hep C Ab (test code = Negative *NA*(06/11/16 Hep C Ab) 8:56 AM) [facility] CenterVzxvskyGBWWNTZAPO4898-43-72 14:56:00 Test Item Value Reference Range Interpretation Comments Hep B Core IgM (test Negative *NA*(06/11/16 code = Hep B Core 8:56 AM) IgM) [facility]RueltwdEVSVECSYPL3760-63-46 14:56:00 Test Item Value Reference Range Interpretation Comments Hep A IgM (test code Negative *NA*(06/11/16 = Hep A IgM) 8:56 AM) [facility] CenterYeiwtowKBSHDQHTXE9709-31-16 14:56:00 Test Item Value Reference Range Interpretation Comments HIV Ag/Ab 4th Gen Negative *NA*(06/11/16 (test code = HIV 8:56 AM) Ag/Ab 4th Gen) [facility] CenterKorwlfzWBNGWSVNKB5917-46-94 14:56:00 Test Item Value Reference Range Interpretation Comments IVETTE (test code = IVETTE) Positive *ABN*(06/11/16 8:56 AM) [facility]2016-12-22 10:42:00 Test Item Value Reference Range Interpretation Comments Bili Total (test code = Bili Total) 0.1 0.2-1.3 [place] 167386-12-22 10:42:00 Test Item Value Reference Range Interpretation Comments Total Protein (test code = Total 5.2 6.4-8.4 Protein) [facility]2016-12-22 10:42:00 Test Item Value Reference Range Interpretation Comments Albumin Lvl (test code = Albumin Lvl) 1.6 3.5-5.0 [place] 167386-12-22 10:42:00 Test Item Value Reference Range Interpretation Comments B/C Ratio (test code = B/C Ratio) 20 6-25 [place] 167386-12-22 10:42:00 Test Item Value Reference Range Interpretation Comments Globulin (test code = Globulin) 3.6 2.7-4.2 [place] 167386-12-22 10:42:00 Test Item Value Reference Range Interpretation Comments A/G Ratio (test code = A/G Ratio) 0.4 0.7-1.6 [place] 167386-12-22 10:42:00 Test Item Value Reference Range Interpretation Comments Alk Phos (test code = Alk Phos) 74 39-136 [facility]2016-12-22 10:42:00 Test Item Value Reference Range Interpretation Comments ALT (test code = ALT) 14 See_Comment [Auto mated message] The system which ge nerated this result transmit rohit reference range : <=65. The reference range was not used to interpr et this result as reji l/abnormal. [facility]2016-12-22 10:42:00 Test Item Value Reference Range Interpretation Comments AST (test code = AST) 13 See_Comment [Auto mated message] The system which ge nerated this result transmit rohit reference range : <=37. The reference range was not used to interpr et this result as reji l/abnormal. [facility] CenterHnurovjQXMAUBGDRQ7494-66-60 10:42:00 Test Item Value Reference Range Interpretation Comments INR (test code = INR) 1.06 0.85-1.17 [place] [id number] 10:42:00 Test Item Value Reference Range Interpretation Comments PT (test code = PT) 14.0 s 12.0-14.7 [place] [id number] 10:42:00 Test Item Value Reference Range Interpretation Comments PTT (test code = PTT) 36.4 s 22.9-35.8 [facility]Lime[facility]IAL [id number] 10:42:00 Test Item Value Reference Range Interpretation Comments Hgb A1C (test code = Hgb A1C) 10.5 [facility] [employer] [id number] 02:08:00 Test Item Value Reference Range Interpretation Comments CK MB Index (test 1.8 See_Comment [Automate d message] The code = CK MB Index) system w [facility] generated this result transmit rohit reference range : <=2.5. The reference range was not used to interpr et this result as reji l/abnormal. [facility] [employer] [id number] 02:08:00 Test Item Value Reference Range Interpretation Comments CK MB (test code = CK MB) 2.9 0.5-3.6 [facility] [employer] [id number] 02:08:00 Test Item Value Reference Range Interpretation Comments Troponin-T (test code 0.061 See_Comment [Auto mated message] The = Troponin-T) system which g enerated this result transmit rohit reference range : <=0.100. The reference r leo was not used to interpr et this result as reji l/abnormal. [facility] [employer] [id number] 02:08:00 Test Item Value Reference Range Interpretation Comments Total CK (test code = Total CK) 159 12-191 [facility] [employer] [id number] 02:08:00 Test Item Value Reference Range Interpretation Comments Troponin-I (test code no gt See_Comment [Auto mated message] The = Troponin-I) system which g enerated this result transmit rohit reference range : <=0.40. The reference r leo was not used to interpr et this result as reji l/abnormal. [employer] [id number] 02:08:00 Test Item Value Reference Range Interpretation Comments Bili Total (test code = Bili Total) 0.2 0.2-1.3 [facility] [employer] [id number] 02:08:00 Test Item Value Reference Range Interpretation Comments Bili Direct (test code 0.1 See_Comment [Aut omated message] The = Bili Direct) system which generated this result tra nsmitted reference range : <=0.3. The reference r leo was not used to int erpret this result as reji l/abnormal. [facility] [employer] [id number] 02:08:00 Test Item Value Reference Range Interpretation Comments Bili Indirect (test 0.1 See_Comment [Automa rohit message] The code = Bili Indirect) system which generated this result tra nsmitted reference range : <=1.0. The reference r leo was not used to int erpret this result as normal/abnormal . [facility] [employer] [id number] 02:08:00 Test Item Value Reference Range Interpretation Comments Total Protein (test code = Total 5.7 6.4-8.4 Protein) [facility] [employer] [id number] 02:08:00 Test Item Value Reference Range Interpretation Comments A/G Ratio (test code = A/G Ratio) 0.5 0.7-1.6 [facility] [employer] [id number] 02:08:00 Test Item Value Reference Range Interpretation Comments Albumin Lvl (test code = Albumin Lvl) 1.8 3.5-5.0 [facility] [employer] [id number] 02:08:00 Test Item Value Reference Range Interpretation Comments Globulin (test code = Globulin) 3.9 2.7-4.2 [facility] [employer] [id number] 02:08:00 Test Item Value Reference Range Interpretation Comments Alk Phos (test code = Alk Phos) 99 39-136 [facility] [employer] [id number] 02:08:00 Test Item Value Reference Range Interpretation Comments AST (test code = AST) 21 See_Comment [Auto mated message] The system which ge nerated this result transmit rohit reference range : <=37. The reference range was not used to interpr et this result as reji l/abnormal. [facility] [employer] [id number] 02:08:00 Test Item Value Reference Range Interpretation Comments ALT (test code = ALT) 17 See_Comment [Auto mated message] The system which ge nerated this result transmit rohit reference range : <=65. The reference range was not used to interpr et this result as reji l/abnormal. [facility] [employer] [id number] 02:08:00 Test Item Value Reference Range Interpretation Comments UDS Note (test code = See Note *NA*(06/10/16 UDS Note) 8:08 PM) [facility] [id number] 02:08:00 Test Item Value Reference Range Interpretation Comments U Propoxyph Scr (test Negative *NA*(06/10/16 code = U Propoxyph Scr) 8:08 PM) [facility] [id number] 02:08:00 Test Item Value Reference Range Interpretation Comments U Opiate Scr (test Negative *NA*(06/10/16 code = U Opiate Scr) 8:08 PM) [facility] [id number] 02:08:00 Test Item Value Reference Range Interpretation Comments U Methadone Scr (test Negative *NA*(06/10/16 code = U Methadone Scr) 8:08 PM) [facility] [id number] 02:08:00 Test Item Value Reference Range Interpretation Comments U Phencyc Scr (test Negative *NA*(06/10/16 code = U Phencyc Scr) 8:08 PM) [facility] [id number] 02:08:00 Test Item Value Reference Range Interpretation Comments U Cannab Scr (test Negative *NA*(06/10/16 code = U Cannab Scr) 8:08 PM) [facility] [id number] 02:08:00 Test Item Value Reference Range Interpretation Comments U Amph Scr (test code Negative *NA*(06/10/16 = U Amph Scr) 8:08 PM) [facility] [id number] 02:08:00 Test Item Value Reference Range Interpretation Comments U Kelly Scr (test code Negative *NA*(06/10/16 = U Kelly Scr) 8:08 PM) [facility] [id number] 02:08:00 Test Item Value Reference Range Interpretation Comments U Benzodia Scr (test Negative *NA*(06/10/16 code = U Benzodia Scr) 8:08 PM) [facility] [id number] 02:08:00 Test Item Value Reference Range Interpretation Comments U Cocaine Scr (test Negative *NA*(06/10/16 code = U Cocaine Scr) 8:08 PM) [facility] [id number] 02:08:00 Test Item Value Reference Range Interpretation Comments LDL (Calculated) (test code = LDL 75 (Calculated)) [facility] 02:08:00 Test Item Value Reference Range Interpretation Comments VLDL (test code = VLDL) 27 [facility] CenterOviulxbPRBQMP0180-06-00 02:08:00 Test Item Value Reference Range Interpretation Comments Chol (test code = Chol) [facility] LancasterUbtufebDHPAQF6035-72-34 02:08:00 Test Item Value Reference Range Interpretation Comments Trig (test code = Trig) 133 [facility] LancasterSzhkozfFKJZQQ3798-78-63 02:08:00 Test Item Value Reference Range Interpretation Comments CHD Risk (test code = CHD Risk) 4.29 3.90-5.80 [facility] LancasterEqcaltjCSKYWQ6644-59-40 02:08:00 Test Item Value Reference Range Interpretation Comments HDL (test code = HDL) 31 [facility] AND [id number] 02:08:00 Test Item Value Reference Range Interpretation Comments UA Urobilinogen (test code = UA <=1.0 mg/dL 0.1-1.0 Urobilinogen) [facility] AND [id number] 02:08:00 Test Item Value Reference Range Interpretation Comments UA Ketones (test code = UA Negative mg/dL Ketones) [facility] AND [id number] 02:08:00 Test Item Value Reference Range Interpretation Comments UA Glucose (test code = UA Glucose) 300 mg/dL [facility] AND [id number] 02:08:00 Test Item Value Reference Range Interpretation Comments UA Protein (test code = UA >=300 mg/dL Protein) [facility] AND [id number] 02:08:00 Test Item Value Reference Range Interpretation Comments UA pH (test code = UA pH) 6.0 5.0-8.0 [facility] AND [id number] 02:08:00 Test Item Value Reference Range Interpretation Comments UA Nitrite (test code Negative (06/10/16 8:08 = UA Nitrite) PM) [facility] AND [id number] 02:08:00 Test Item Value Reference Range Interpretation Comments UA Blood (test code = Trace *ABN*(06/10/16 UA Blood) 8:08 PM) [facility] AND [id number] 02:08:00 Test Item Value Reference Range Interpretation Comments UA Bili (test code = Negative *NA*(06/10/16 UA Bili) 8:08 PM) [facility] [id number] 02:08:00 Test Item Value Reference Range Interpretation Comments UA Mucus (test code = UA Mucus) Few /LPF [facility] [id number] 02:08:00 Test Item Value Reference Range Interpretation Comments UA RBC (test code = 4 See_Comment [Automa rohit message] The UA RBC) system which ge nerated this result transmit rohit reference range : <=2. The reference range was not used to interpr et this result as reji l/abnormal. [facility] [id number] 02:08:00 Test Item Value Reference Range Interpretation Comments UA Sq Epi (test code = UA Sq Epi) Few /LPF [facility] [id number] 02:08:00 Test Item Value Reference Range Interpretation Comments UA WBC (test code = 5 See_Comment [Automa rohit message] The UA WBC) system which ge nerated this result transmit rohit reference range : <=5. The reference range was not used to interpr et this result as reji l/abnormal. [facility] [id number] 02:08:00 Test Item Value Reference Range Interpretation Comments UA Leuk Est (test code Small *ABN*(06/10/16 = UA Leuk Est) 8:08 PM) [facility] [id number] 02:08:00 Test Item Value Reference Range Interpretation Comments UA Hyal Cast (test 1 See_Comment [Automat ed message] The code = UA Hyal Cast) system which generated this result transmit rohit reference range : <=2. The reference range was not used to interpr et this result as reji l/abnormal. [facility] [id number] 02:08:00 Test Item Value Reference Range Interpretation Comments UA Spec Grav (test code = UA Spec Grav) 1.009 [facility] [id number] 02:08:00 Test Item Value Reference Range Interpretation Comments UA Color (test code = Yellow *NA*(06/10/16 UA Color) 8:08 PM) [facility] [id number] 02:08:00 Test Item Value Reference Range Interpretation Comments UA Turbidity (test code = Clear (06/10/16 8:08 UA Turbidity) PM) [facility]2016-12-22 02:08:00 Test Item Value Reference Range Interpretation Comments U Preg (test code = U Negative (06/10/16 8:08 Preg) PM) [facility]2016-12-22 02:08:00 Test Item Value Reference Range Interpretation Comments U Protein (test code = U Protein) 375.4 [facility]2016-12-22 02:08:00 Test Item Value Reference Range Interpretation Comments U Prot/Creat (test code = U Prot/Creat) 5.4 [facility]2016-12-22 02:08:00 Test Item Value Reference Range Interpretation Comments U Creatinine (test code = U Creatinine) 69.80 [facility] [id number] 16:53:00 Test Item Value Reference Range Interpretation Comments BNP (test code = BNP) 1135 [facility] CenterClipClockB[facility] [id number] 16:53:00 Test Item Value Reference Range Interpretation Comments Troponin-I (test code no gt See_Comment [Auto mated message] The = Troponin-I) system which g enerated this result transmit rohit reference range : <=0.40. The reference r leo was not used to interpr et this result as reji l/abnormal. [facility] [id number] 13:02:00 Test Item Value Reference Range Interpretation Comments Lactic Acid WB (test code = Lactic Acid 0.9 0.5-2.2 WB) [facility] [id number] 12:29:44 Test Item Value Reference Range Interpretation Comments Valproic Acid Lvl (test code = Valproic 10 50-100 Acid Lvl) [facility] CenterNdcbinlTDLEBCVDOQHYR2659-77-07 11:21:27 Test Item Value Reference Range Interpretation Comments hCG Tot (test code = hCG Tot) 1 [facility] [id number] 11:21:00 Test Item Value Reference Range Interpretation Comments Albumin Lvl (test code = Albumin Lvl) 3.2 3.5-5.0 [facility] [id number] 11:21:00 Test Item Value Reference Range Interpretation Comments Total Protein (test code = Total 6.6 6.4-8.4 Protein) [facility]2015-01-06 11:21:00 Test Item Value Reference Range Interpretation Comments Bili Total (test code = Bili Total) 0.6 0.2-1.3 [facility]2015-01-06 11:21:00 Test Item Value Reference Range Interpretation Comments Alk Phos (test code = Alk Phos) 59 39-136 [facility]2015-01-06 11:21:00 Test Item Value Reference Range Interpretation Comments AST (test code = AST) 11 See_Comment [Auto mated message] The system which ge nerated this result transmit rohit reference range : <=37. The reference range was not used to interpr et this result as reji l/abnormal. [facility]2015-01-06 11:21:00 Test Item Value Reference Range Interpretation Comments ALT (test code = ALT) 17 See_Comment [Auto mated message] The system which ge nerated this result transmit rohit reference range : <=65. The reference range was not used to interpr et this result as reji l/abnormal. [facility]2015-01-06 11:21:00 Test Item Value Reference Range Interpretation Comments eGFR (test code = eGFR) 99 [facility]2015-01-06 11:21:00 Test Item Value Reference Range Interpretation Comments Glucose Lvl (test code = Glucose Lvl) 314 70-99 [facility]2015-01-06 11:21:00 Test Item Value Reference Range Interpretation Comments Potassium Lvl (test code = Potassium 3.4 3.5-5.1 Lvl) [facility]2015-01-06 11:21:00 Test Item Value Reference Range Interpretation Comments BUN (test code = BUN) 11 7-22 [facility]2015-01-06 11:21:00 Test Item Value Reference Range Interpretation Comments Creatinine Lvl (test code = Creatinine 0.8 0.5-1.4 Lvl) [facility]2015-01-06 11:21:00 Test Item Value Reference Range Interpretation Comments Sodium Lvl (test code = Sodium Lvl) 134 135-145 [facility]2015-01-06 11:21:00 Test Item Value Reference Range Interpretation Comments Chloride Lvl (test code = Chloride Lvl) 94 95-109 [facility]2015-01-06 11:21:00 Test Item Value Reference Range Interpretation Comments Calcium Lvl (test code = Calcium Lvl) 9.1 8.5-10.5 [facility]2015-01-06 11:21:00 Test Item Value Reference Range Interpretation Comments CO2 (test code = CO2) 24 24-32 [facility]2015-01-06 11:21:00 Test Item Value Reference Range Interpretation Comments A/G Ratio (test code = A/G Ratio) 0.9 0.7-1.6 [facility]2015-01-06 11:21:00 Test Item Value Reference Range Interpretation Comments Globulin (test code = Globulin) 3.4 2.0-4.0 [facility]2015-01-06 11:21:00 Test Item Value Reference Range Interpretation Comments B/C Ratio (test code = B/C Ratio) 14 6-25 [facility]2015-01-06 11:21:00 Test Item Value Reference Range Interpretation Comments AGAP (test code = AGAP) 19.4 10.0-20.0 [facility]2015-01-06 11:21:00 Test Item Value Reference Range Interpretation Comments Lipase Lvl (test code = Lipase Lvl) 81 73-393 [facility] CenterYccuyvrUFGWQZNCJR2366-26-57 11:21:00 Test Item Value Reference Range Interpretation Comments Large Plt (test code = Large Plt) Slight [facility] [id number] 11:21:00 Test Item Value Reference Range Interpretation Comments Basophils # (test code 0.0 See_Comment [Aut omated message] The = Basophils #) system which generated this result tra nsmitted reference range : <=0.2. The reference r leo was not used to int erpret this result as normal/abnormal . [facility] CenterPkdefnkOVUSVSQEOY5309-52-72 11:21:00 Test Item Value Reference Range Interpretation Comments Anisocyte (test code = 1+ *ABN*(06/26/14 5:21 Anisocyte) AM) [facility] [id number] 11:21:00 Test Item Value Reference Range Interpretation Comments Monocytes # (test code 0.6 See_Comment [Aut omated message] The = Monocytes #) system which generated this result tra nsmitted reference range : <=0.8. The reference r leo was not used to int erpret this result as normal/abnormal . [facility] CenterYovnuvoGQTQQJBVQY9973-54-58 11:21:00 Test Item Value Reference Range Interpretation Comments Eosinophils # (test code 0.1 See_Comment [A utomated message] The = Eosinophils #) system whic h generated this result tra nsmitted reference range : <=0.5. The reference r leo was not used to int erpret this result as normal/abnormal . [facility] CenterEhhaqqhEAHNLHLZPP7304-71-79 11:21:00 Test Item Value Reference Range Interpretation Comments Lymphocytes # (test code = Lymphocytes 2.5 1.0-5.5 #) [facility] CenterHuqypnqSBLAUWMYMR6833-30-65 11:21:00 Test Item Value Reference Range Interpretation Comments Segs (test code = Segs) 63.3 45.0-75.0 [facility] CenterBaawwhjBOVAPBFGBC4656-43-10 11:21:00 Test Item Value Reference Range Interpretation Comments Segs-Bands # (test code = Segs-Bands #) 5.6 1.5-8.1 [facility] CenterKesseqgXRJJFKMGAH4327-35-99 11:21:00 Test Item Value Reference Range Interpretation Comments Basophils (test code = 0.0 See_Comment [Aut omated message] The Basophils) system which ge nerated this result tra nsmitted reference range : <=1.0. The reference r leo was not used to int erpret this result as normal/abnormal . [facility] CenterGfojfwsBYOWKCYCEF9651-50-91 11:21:00 Test Item Value Reference Range Interpretation Comments Eosinophils (test code = 0.9 See_Comment [A utomated message] The Eosinophils) system which ge nerated this result tra nsmitted reference range : <=4.0. The reference r leo was not used to int erpret this result as normal/abnormal . [facility] CenterInejwieHUVJYYKHIV6473-57-99 11:21:00 Test Item Value Reference Range Interpretation Comments Monocytes (test code = Monocytes) 7.0 2.0-12.0 [facility] CenterMjhtcoxEXDKUCHTPY8374-54-71 11:21:00 Test Item Value Reference Range Interpretation Comments Lymphocytes (test code = Lymphocytes) 28.8 20.0-40.0 [facility] CenterNktnoucQPPVHXJVRI3999-76-06 11:21:00 Test Item Value Reference Range Interpretation Comments WBC (test code = WBC) 8.8 3.7-10.4 [facility] CenterMopnfgfWYQEKGLGKF6498-67-72 11:21:00 Test Item Value Reference Range Interpretation Comments RBC (test code = RBC) 5.19 4.20-5.40 [facility] CenterOblzgbdHGDSRSUOSN7404-63-88 11:21:00 Test Item Value Reference Range Interpretation Comments Hgb (test code = Hgb) 14.4 12.0-16.0 [facility] CenterDnxprwtLPURKSTKQW8824-01-83 11:21:00 Test Item Value Reference Range Interpretation Comments Hct (test code = Hct) 43.1 36.0-48.0 [facility] CenterNxwbuoyUHCLXNAPVM5627-96-35 11:21:00 Test Item Value Reference Range Interpretation Comments MCV (test code = MCV) 83.1 80.0-98.0 [facility] CenterPyqveilPQNZEKTTFY2285-08-91 11:21:00 Test Item Value Reference Range Interpretation Comments MCH (test code = MCH) 27.8 pg 27.0-31.0 [facility] CenterCycpkfqJTSITPHWZG5643-23-46 11:21:00 Test Item Value Reference Range Interpretation Comments RDW (test code = RDW) 13.1 11.5-14.5 [facility] CenterQuknlfoDYRRKFJVRG9529-01-57 11:21:00 Test Item Value Reference Range Interpretation Comments MCHC (test code = MCHC) 33.5 32.0-36.0 [facility] CenterEpzxjckEOAHSWOFMZ2927-27-86 11:21:00 Test Item Value Reference Range Interpretation Comments Platelet (test code = Platelet) 201 133-450 [facility] CenterYgkqoynVIICPIHZSZ4277-30-86 11:21:00 Test Item Value Reference Range Interpretation Comments MPV (test code = MPV) 10.4 7.4-10.4 [facility]QhxswsiQCVXZYDJHA4242-77-75 04:48:55 Test Item Value Reference Range Interpretation Comments UA Crawford Yeast (test code = UA Occasional /HPF A Crawford Yeast) [facility]aXrmuokvYTHZJECTXF5791-36-47 04:48:55 Test Item Value Reference Range Interpretation Comments UA Mucus (test code = UA Mucus) Few /LPF N [facility]aLjjgkibNNWVWMVILC1797-59-19 04:48:55 Test Item Value Reference Range Interpretation Comments UA Sq Epi (test code = UA Sq Moderate /LPF A Epi) [facility]aMdkngboEITGUQHXAK1826-91-28 04:48:55 Test Item Value Reference Range Interpretation Comments Micro? (test code = Performed (04/14/2013 N Micro?) 23:48:55) [facility]aNpmzticNGVYFILSGF7979-07-60 04:48:55 Test Item Value Reference Range Interpretation Comments UA WBC (test code = UA WBC) 0-2 /HPF N [facility]aFmyjpbiCXBRXPLZTX5697-12-28 04:48:55 Test Item Value Reference Range Interpretation Comments UA Bacteria (test code = UA Occasional /HPF N Bacteria) [facility]aSphjbdwCAEVWMGVVN0049-77-96 04:48:55 Test Item Value Reference Range Interpretation Comments UA Glucose (test code = UA Glucose) 500 mg/dL A [facility]aLaztgqxMWPNWSKBLG6122-80-13 04:48:55 Test Item Value Reference Range Interpretation Comments UA Bili (test code = Negative *NA*(04/14/2013 UA Bili) 23:48:55) [facility]aRpywavnGPIZVFFJZJ3295-18-50 04:48:55 Test Item Value Reference Range Interpretation Comments UA Ketones (test code = Trace A UA Ketones) *ABN*(04/14/2013 23:48:55) [facility]aUzfvqkuGMOSAHEIQQ5495-64-81 04:48:55 Test Item Value Reference Range Interpretation Comments UA Blood (test code = Negative (04/14/2013 N UA Blood) 23:48:55) [facility]aJjgiynqKUCDCHNKHL9043-16-95 04:48:55 Test Item Value Reference Range Interpretation Comments UA Urobilinogen (test code = UA 0.2 0.1-1.0 N Urobilinogen) [facility]aImbtfzkHIXXEAHGQS0094-90-47 04:48:55 Test Item Value Reference Range Interpretation Comments UA Nitrite (test code Negative (04/14/2013 N = UA Nitrite) 23:48:55) [facility]aWiqdutfNULMPUVERL1303-65-80 04:48:55 Test Item Value Reference Range Interpretation Comments UA Leuk Est (test Negative (04/14/2013 N code = UA Leuk Est) 23:48:55) [facility]aFtfgkutDJYQBYGPKF3785-39-67 04:48:55 Test Item Value Reference Range Interpretation Comments UA Turbidity (test code = Clear (04/14/2013 N UA Turbidity) 23:48:55) [facility]aLnxklinJRRBFBGKKN0943-92-74 04:48:55 Test Item Value Reference Range Interpretation Comments UA Color (test code = Yellow *NA*(04/14/2013 UA Color) 23:48:55) [facility]aTcjohopOIBFPRBOMW5758-26-62 04:48:55 Test Item Value Reference Range Interpretation Comments UA pH (test code = UA pH) 7.0 1 5.0-8.0 N [facility]zbqunpBFGSYQFRHP8756-34-39 04:48:55 Test Item Value Reference Range Interpretation Comments UA Spec Grav (test code = UA Spec 1.025 1 N Grav) [facility]EhvlysqXCZFAXGSUT2469-07-80 04:48:55 Test Item Value Reference Range Interpretation Comments UA Protein (test code = Trace A UA Protein) *ABN*(04/14/2013 23:48:55) [facility]SwnzgiyOVRDZAJDJ0803-82-13 04:28:00 Test Item Value Reference Range Interpretation Comments S Preg (test code = S Negative *NA*(04/14/2013 Preg) 23:28:00) [facility] HospitalTtxkjucGTQDDKHEB9219-99-23 04:28:00 Test Item Value Reference Range Interpretation Comments Lipase Lvl (test code = Lipase Lvl) 233 73-393 N [facility] HospitalWsfudbqLIPCUCEMT1177-58-84 04:28:00 Test Item Value Reference Range Interpretation Comments Globulin (test code = Globulin) 4.1 2.0-4.0 H [facility] HospitalAsbnjjnRMOKRKKEY7068-23-00 04:28:00 Test Item Value Reference Range Interpretation Comments AGAP (test code = AGAP) 10.5 10.0-20.0 N [facility] HospitalQmwpxqxFIJRVIVFN3348-71-14 04:28:00 Test Item Value Reference Range Interpretation Comments B/C Ratio (test code = B/C Ratio) 6 6-25 N [facility] HospitalTdhwvfcCNUIECWEN7982-40-46 04:28:00 Test Item Value Reference Range Interpretation Comments A/G Ratio (test code = A/G Ratio) 0.7 0.7-1.6 N [facility] HospitalDpqcxrkWOGIOQINK4851-77-56 04:28:00 Test Item Value Reference Range Interpretation Comments eGFR (test code = eGFR) 130 [facility] HospitalWfhqtswJEBNRTZWG0027-37-86 04:28:00 Test Item Value Reference Range Interpretation Comments Albumin Lvl (test code = Albumin Lvl) 2.9 3.5-5.0 L [facility] HospitalMhhvddcCRXTAHDPH1631-02-75 04:28:00 Test Item Value Reference Range Interpretation Comments ASPARTATE TRANSAMINASE 20 See_Comment N [Aut omated message] (test code = ASPARTATE The s ystem which TRANSAMINASE) generated this result transmitted ref erence range: <=37. Th e reference range was not used to interpr et this result as normal/abnormal . [facility] HospitalPqnmlnoQTCKPSIPM1518-80-35 04:28:00 Test Item Value Reference Range Interpretation Comments Bili Total (test code = Bili Total) 0.5 0.2-1.3 N [facility] HospitalPzgzjkvKQKOKASDX2139-54-52 04:28:00 Test Item Value Reference Range Interpretation Comments Alk Phos (test code = Alk Phos) 89 39-136 N [facility] HospitalQhrcdfuRNGOPEQYP3194-36-32 04:28:00 Test Item Value Reference Range Interpretation Comments ALANINE AMINOTRANSFERASE 11 See_Comment N [A utomated message] (test code = ALANINE The sys tem which AMINOTRANSFERASE) generated this result transmitted ref erence range: <=65. Th e reference range was not used to int erpret this result as normal/abnormal . [facility] HospitalOzippfuIJFKHPLXO0441-96-90 04:28:00 Test Item Value Reference Range Interpretation Comments Creatinine Lvl (test code = Creatinine 0.5 0.5-1.4 N Lvl) [facility] HospitalMffgpenEVPEJCUJK8327-84-97 04:28:00 Test Item Value Reference Range Interpretation Comments BUN (test code = BUN) 3 7-22 L [facility] HospitalIfnquhdNJPZNVVXH1569-40-00 04:28:00 Test Item Value Reference Range Interpretation Comments Glucose Lvl (test code = Glucose Lvl) 255 70-99 H [facility] HospitalRqkvbgyHKSEQCXCO0871-26-67 04:28:00 Test Item Value Reference Range Interpretation Comments Total Protein (test code = Total 7.0 6.4-8.4 N Protein) [facility] HospitalOzsojqtDPCOJYOUU9756-65-65 04:28:00 Test Item Value Reference Range Interpretation Comments Calcium Lvl (test code = Calcium Lvl) 8.7 8.5-10.5 N [facility] HospitalUfbxhdzLAUQGAKLM0275-28-30 04:28:00 Test Item Value Reference Range Interpretation Comments CO2 (test code = CO2) 29 24-32 N [facility] HospitalGsxwbomJWXWFBJJK6532-09-56 04:28:00 Test Item Value Reference Range Interpretation Comments Chloride Lvl (test code = Chloride Lvl) 104 95-109 N [facility] HospitalYpinbvqLDGFFNDNN8500-44-64 04:28:00 Test Item Value Reference Range Interpretation Comments Potassium Lvl (test code = Potassium 3.5 3.5-5.1 N Lvl) [facility] HospitalWzgcqhhDUMXIBIOE8142-11-41 04:28:00 Test Item Value Reference Range Interpretation Comments Sodium Lvl (test code = Sodium Lvl) 140 135-145 N [facility] CenterOgqeqfnBTDAZDNEEN7939-33-19 04:28:00 Test Item Value Reference Range Interpretation Comments PROTIME (test code = PROTIME) 12.1 s 12.0-14.7 N [facility] CenterEtakincWKTYWLKVJV4912-92-65 04:28:00 Test Item Value Reference Range Interpretation Comments aPTT (test code = aPTT) 39.0 s 22.9-35.8 H [facility] CenterElnulxjVMNCEWNTGX5581-34-38 04:28:00 Test Item Value Reference Range Interpretation Comments INR (test code = INR) 0.90 0.85-1.17 N [facility] CenterLyzwphlDSJUIRQJLK9014-23-54 04:28:00 Test Item Value Reference Range Interpretation Comments MCH (test code = MCH) 29.4 pg 27.0-31.0 N [facility] CenterGcemertEAXTQOTKFP6348-86-86 04:28:00 Test Item Value Reference Range Interpretation Comments MCV (test code = MCV) 86.1 81.0-99.0 N [facility] CenterLvyuvjyEZBRAFCQPW8918-03-28 04:28:00 Test Item Value Reference Range Interpretation Comments Hct (test code = Hct) 29.4 36.0-48.0 L [facility] CenterDyugcsbWHDEFLHOWM1318-07-09 04:28:00 Test Item Value Reference Range Interpretation Comments RDW (test code = RDW) 14.0 11.5-14.5 N [facility] CenterPqerhqoEWZBIQRZPD7010-67-84 04:28:00 Test Item Value Reference Range Interpretation Comments WBC X 10x3 (test code = WBC X 10x3) 6.2 3.7-10.4 N [facility] CenterLxguotpWWJPFKWWVQ5300-10-79 04:28:00 Test Item Value Reference Range Interpretation Comments Platelet (test code = Platelet) 178 133-450 N [facility] CenterSqpdmueDDUUMNSJMN9206-05-40 04:28:00 Test Item Value Reference Range Interpretation Comments MCHC (test code = MCHC) 34.1 32.0-36.0 N [facility] CenterSswtmbfJWLDAZYZTA3380-89-10 04:28:00 Test Item Value Reference Range Interpretation Comments RBC X 10x6 (test code = RBC X 10x6) 3.41 4.20-5.40 L [facility] CenterZdbkyqtVZTBFOSLRV9429-10-45 04:28:00 Test Item Value Reference Range Interpretation Comments Hgb (test code = Hgb) 10.0 12.0-16.0 L [facility] CenterCqaausaDNEBXAUQAM4691-05-99 04:28:00 Test Item Value Reference Range Interpretation Comments MPV (test code = MPV) 10.1 7.4-10.4 N [facility] CenterPklwmrwDDCWYGANWG7080-43-34 04:28:00 Test Item Value Reference Range Interpretation Comments Segs-Bands # (test code = Segs-Bands #) 4.4 1.5-8.1 N [facility] CenterGycdvptQKIBZKTXGF8244-51-98 04:28:00 Test Item Value Reference Range Interpretation Comments Basophils (test code = 0.7 See_Comment N [Aut omated message] The Basophils) system which ge nerated this result tra nsmitted reference range : <=1.0. The reference r leo was not used to int erpret this result as normal/abnormal . [facility] CenterKsdgmifCKHBCGJHLQ1132-66-65 04:28:00 Test Item Value Reference Range Interpretation Comments Segs (test code = Segs) 70.7 45.0-75.0 N [facility] CenterLigwinyKJTQQLZLFF5386-16-89 04:28:00 Test Item Value Reference Range Interpretation Comments Monocytes # (test code 0.3 See_Comment N [Aut omated message] The = Monocytes #) system which generated this result tra nsmitted reference range : <=0.8. The reference r leo was not used to int erpret this result as normal/abnormal . [facility] CenterAdrtursIUWPQXAPBA5394-63-70 04:28:00 Test Item Value Reference Range Interpretation Comments Lymphocytes # (test code = Lymphocytes 1.2 1.0-5.5 N #) [facility] CenterOaqirbnGRVXTBVJDQ4670-16-92 04:28:00 Test Item Value Reference Range Interpretation Comments Monocytes (test code = Monocytes) 4.5 2.0-12.0 N [facility] CenterAxdvtpfSWGAWGAACN6560-94-27 04:28:00 Test Item Value Reference Range Interpretation Comments Eosinophils (test code = 4.1 See_Comment H [A utomated message] The Eosinophils) system which ge nerated this result tra nsmitted reference range : <=4.0. The reference r leo was not used to int erpret this result as normal/abnormal . [facility] CenterYmcucrhNSXQBMKYIR7255-78-77 04:28:00 Test Item Value Reference Range Interpretation Comments Lymphocytes (test code = Lymphocytes) 20.0 20.0-40.0 N [facility] CenterYqbqpgoQGSOHCFCZM6457-87-62 04:28:00 Test Item Value Reference Range Interpretation Comments Basophils # (test code 0.0 See_Comment N [Aut omated message] The = Basophils #) system which generated this result tra nsmitted reference range : <=0.2. The reference r leo was not used to int erpret this result as normal/abnormal . [facility] CenterJfsloctPDXZWEFMOJ4127-97-80 04:28:00 Test Item Value Reference Range Interpretation Comments Eosinophils # (test code 0.3 See_Comment N [A utomated message] The = Eosinophils #) system whic h generated this result tra nsmitted reference range : <=0.5. The reference r leo was not used to int erpret this result as normal/abnormal . [facility] GLUCOSE HGSPEUF0059-99-31 01:12:00 Test Item Value Reference Range Interpretation Comments Gluc POC Lifscn (test code = Gluc POC 260 70-99 H Lifscn) [facility] GLUCOSE JTMKFLK0796-46-98 01:12:00 Test Item Value Reference Range Interpretation Comments Comment1 (test code = Comment1) [facility]CgqozkpQGPGDKERVZ6604-14-53 23:40:00 Test Item Value Reference Range Interpretation Comments UA Protein (test code = Trace A UA Protein) *ABN*(03/14/2012 18:40:00) [facility] CenterBcnovbsXZBFQAJHYU1694-32-10 23:40:00 Test Item Value Reference Range Interpretation Comments UA pH (test code = UA pH) 6.0 1 5.0-8.0 N [facility]AmsmhgdUUENJMQICN6636-36-87 23:40:00 Test Item Value Reference Range Interpretation Comments UA Ketones (test code = >=80 mg/dL UA Ketones) *NA*(03/14/2012 18:40:00) [facility]TjkhdjxXQFGTIFODQ3319-13-26 23:40:00 Test Item Value Reference Range Interpretation Comments UA Glucose (test code = >=1000 mg/dL A UA Glucose) *ABN*(03/14/2012 18:40:00) [facility]AoqfocpGGHCQORCWE6320-56-14 23:40:00 Test Item Value Reference Range Interpretation Comments UA Blood (test code = Negative (03/14/2012 N UA Blood) 18:40:00) [facility]HlvnaovUOGEXLSAHW1421-75-32 23:40:00 Test Item Value Reference Range Interpretation Comments UA Nitrite (test code Negative (03/14/2012 N = UA Nitrite) 18:40:00) [facility]JrzceueLCUCTJTNWD4662-16-15 23:40:00 Test Item Value Reference Range Interpretation Comments UA Urobilinogen (test code = UA 0.2 0.1-1.0 N Urobilinogen) [facility]SxgapjaRJNAVFTNZA7209-50-04 23:40:00 Test Item Value Reference Range Interpretation Comments UA Leuk Est (test Negative (03/14/2012 N code = UA Leuk Est) 18:40:00) [facility]RllmbmxYFPLCMKJEY2533-05-83 23:40:00 Test Item Value Reference Range Interpretation Comments UA Bili (test code = Negative *NA*(03/14/2012 UA Bili) 18:40:00) [facility]TsjnxzjINHLTDJIEB1233-06-08 23:40:00 Test Item Value Reference Range Interpretation Comments UA Turbidity (test code = Clear (03/14/2012 N UA Turbidity) 18:40:00) [facility]YhasyewNOFTTZZTUY6193-90-84 23:40:00 Test Item Value Reference Range Interpretation Comments UA Color (test code = Yellow *NA*(03/14/2012 UA Color) 18:40:00) [facility]XildnseZRAGLSMGCN0148-58-93 23:40:00 Test Item Value Reference Range Interpretation Comments UA Spec Grav (test >=1.030 A code = UA Spec Grav) *ABN*(03/14/2012 18:40:00) [facility]iafwmvCTTKARPDRG1405-01-[facility] 23:40:00 Test Item Value Reference Range Interpretation Comments UA Sq Epi (test code Occasional /LPF N = UA Sq Epi) (03/14/2012 18:40:00) [facility]oLxgkzvmYHPDOEBPZZ8628-99-38 23:40:00 Test Item Value Reference Range Interpretation Comments UA WBC (test code = UA 3-5 /HPF (03/14/2012 N WBC) 18:40:00) [facility]OqvtjfiKWSDZMQDAA8570-47-79 23:40:00 Test Item Value Reference Range Interpretation Comments UA Bacteria (test code Occasional /HPF N = UA Bacteria) (03/14/2012 18:40:00) [facility] HospitalTvbjmhbTULPUJCJO6588-47-07 22:50:00 Test Item Value Reference Range Interpretation Comments S Preg (test code = S Negative *NA*(03/14/2012 Preg) 17:50:00) [facility] HospitalObiurqqLLEYDOQVR0755-76-72 22:50:00 Test Item Value Reference Range Interpretation Comments Lipase Lvl (test code = Lipase Lvl) 45 73-393 L [facility] HospitalMuffbcsCAKJWJMSA8870-94-50 22:50:00 Test Item Value Reference Range Interpretation Comments A/G Ratio (test code = A/G Ratio) 1.2 0.7-1.6 N [facility] HospitalPvqfcrkLKBVZBNZF3216-98-40 22:50:00 Test Item Value Reference Range Interpretation Comments Globulin (test code = Globulin) 3.8 2.0-4.0 N [facility] HospitalUgcuhqrBECKZSEFF8331-78-59 22:50:00 Test Item Value Reference Range Interpretation Comments B/C Ratio (test code = B/C Ratio) 21 6-25 N [facility] HospitalTierauqGOXEOMTCI8631-88-69 22:50:00 Test Item Value Reference Range Interpretation Comments AGAP (test code = AGAP) 16.8 10.0-20.0 N [facility] HospitalMxhxkqnCWZITTZLN2268-53-66 22:50:00 Test Item Value Reference Range Interpretation Comments Bili Total (test code = Bili Total) 1.1 0.2-1.3 N [facility] HospitalAqktdxjCQMVSRHHL5223-24-33 22:50:00 Test Item Value Reference Range Interpretation Comments Total Protein (test code = Total 8.2 6.4-8.4 N Protein) [facility] HospitalIkgbnllQFRBLASIU4241-11-29 22:50:00 Test Item Value Reference Range Interpretation Comments Potassium Lvl (test code = Potassium 3.8 3.5-5.1 N Lvl) [facility] HospitalHidxhmkJAIYAPXML8994-82-89 22:50:00 Test Item Value Reference Range Interpretation Comments Creatinine Lvl (test code = Creatinine 0.7 0.5-1.4 N Lvl) [facility] HospitalHmyqtpuWAQQDBBHD9848-11-44 22:50:00 Test Item Value Reference Range Interpretation Comments Sodium Lvl (test code = Sodium Lvl) 139 135-145 N [facility] HospitalGdlqnbpMGGXEWFGV0913-95-55 22:50:00 Test Item Value Reference Range Interpretation Comments Chloride Lvl (test code = Chloride Lvl) 99 95-109 N [facility] HospitalNrhfwfsTKCCXMQLL7408-35-10 22:50:00 Test Item Value Reference Range Interpretation Comments CO2 (test code = CO2) 27 24-32 N [facility] HospitalFbmvgzfMGVFGYZSV7922-10-29 22:50:00 Test Item Value Reference Range Interpretation Comments Glucose Lvl (test code = Glucose Lvl) 301 70-99 H [facility] HospitalHlihyszBQWGPUSND4091-05-38 22:50:00 Test Item Value Reference Range Interpretation Comments BUN (test code = BUN) 15 7-22 N [facility] HospitalBjxiylnPWUPZZBDT2280-81-39 22:50:00 Test Item Value Reference Range Interpretation Comments ALT (test code = ALT) 24 See_Comment N [Auto mated message] The system which nerated this result transmit rohit reference range : <=65. The reference range was not used to interpr et this result as reji l/abnormal. [facility] HospitalAdtdcakSEUQWNJLJ8568-00-58 22:50:00 Test Item Value Reference Range Interpretation Comments AST (test code = AST) 20 See_Comment N [Auto mated message] The system which nerated this result transmit rohit reference range : <=37. The reference range was not used to interpr et this result as reji l/abnormal. [facility] HospitalOkozaxeRJGDNIKDV5480-31-40 22:50:00 Test Item Value Reference Range Interpretation Comments Alk Phos (test code = Alk Phos) 67 39-136 N [facility] HospitalDvyazjkBXJLNZAKU4149-57-02 22:50:00 Test Item Value Reference Range Interpretation Comments Albumin Lvl (test code = Albumin Lvl) 4.4 3.5-5.0 N [facility]OxifcwrQQPAUVCDN4570-75-88 22:50:00 Test Item Value Reference Range Interpretation Comments Calcium Lvl (test code = Calcium Lvl) 9.9 8.5-10.5 N [facility] CenterAflozxeCNNTJVRANA8580-21-14 22:50:00 Test Item Value Reference Range Interpretation Comments MPV (test code = MPV) 11.8 7.4-10.4 H [facility] CenterAxwihkdUQZJZOVMTG9067-60-62 22:50:00 Test Item Value Reference Range Interpretation Comments MCHC (test code = MCHC) 35.9 32.0-36.0 N [facility] CenterYvztkdoJVOKDPQEKL1707-17-96 22:50:00 Test Item Value Reference Range Interpretation Comments MCH (test code = MCH) 31.2 pg 27.0-31.0 H [facility] CenterXangmidLQDDVJZAMJ8827-84-00 22:50:00 Test Item Value Reference Range Interpretation Comments Platelet (test code = Platelet) 189 133-450 N [facility] CenterGhjvxkhHKVZQEUUAA5457-72-97 22:50:00 Test Item Value Reference Range Interpretation Comments RDW (test code = RDW) 13.1 11.5-14.5 N [facility] CenterTblpsuxYNAYBARJPB6158-65-57 22:50:00 Test Item Value Reference Range Interpretation Comments Hct (test code = Hct) 40.7 36.0-48.0 N [facility] CenterPnvpgiaNPHFUMJTPY2014-66-37 22:50:00 Test Item Value Reference Range Interpretation Comments Hgb (test code = Hgb) 14.6 12.0-16.0 N [facility] CenterNomifviTZJLFHBXPJ3792-69-02 22:50:00 Test Item Value Reference Range Interpretation Comments MCV (test code = MCV) 87.0 81.0-99.0 N [facility] CenterInoazlvQGFSFYXAUK2309-59-48 22:50:00 Test Item Value Reference Range Interpretation Comments WBC (test code = WBC) 11.7 3.7-10.4 H [facility] CenterUcehldhLYEIKYOHEV2756-61-26 22:50:00 Test Item Value Reference Range Interpretation Comments RBC (test code = RBC) 4.68 4.20-5.40 N [facility] CenterCcupcjmIHOJDETCCW6069-13-62 22:50:00 Test Item Value Reference Range Interpretation Comments Basophils # (test code 0.0 See_Comment N [Aut omated message] The = Basophils #) system which generated this result tra nsmitted reference range : <=0.2. The reference r leo was not used to int erpret this result as normal/abnormal . [facility] CenterHebwsehJFVPMWMISZ2399-65-39 22:50:00 Test Item Value Reference Range Interpretation Comments Basophils (test code = 0.2 See_Comment N [Aut omated message] The Basophils) system which ge nerated this result tra nsmitted reference range : <=1.0. The reference r leo was not used to int erpret this result as normal/abnormal . [facility] CenterFbyjesqLCZCLCNZIY8123-52-36 22:50:00 Test Item Value Reference Range Interpretation Comments Eosinophils # (test code 0.0 See_Comment N [A utomated message] The = Eosinophils #) system whic h generated this result tra nsmitted reference range : <=0.5. The reference r leo was not used to int erpret this result as normal/abnormal . [facility] CenterCfbtlwxIZQRPIMVHV4238-17-29 22:50:00 Test Item Value Reference Range Interpretation Comments Monocytes # (test code 0.4 See_Comment N [Aut omated message] The = Monocytes #) system which generated this result tra nsmitted reference range : <=0.8. The reference r leo was not used to int erpret this result as normal/abnormal . [facility] CenterOpsmtvoHADEWXXEUA1666-94-96 22:50:00 Test Item Value Reference Range Interpretation Comments Segs-Bands # (test code = Segs-Bands #) 10.6 1.5-8.1 H [facility] CenterIiffhyhNRXKCKKMAE7958-93-02 22:50:00 Test Item Value Reference Range Interpretation Comments Lymphocytes # (test code = Lymphocytes 0.7 1.0-5.5 L #) [facility] CenterHnnpjboRNJIFLBNGX8635-83-45 22:50:00 Test Item Value Reference Range Interpretation Comments Monocytes (test code = Monocytes) 3.4 2.0-12.0 N [facility] CenterQjizczrQAQLSKUKDX2549-94-47 22:50:00 Test Item Value Reference Range Interpretation Comments Plt Morph (test code = Normal (03/14/2012 N Plt Morph) 17:50:00) [facility]TgwvvirYPDCCKLBSB7343-28-83 22:50:00 Test Item Value Reference Range Interpretation Comments Lymphocytes (test code = Lymphocytes) 6.0 20.0-40.0 L [facility] MichiganOncutlfICVWKCEYFA3622-39-19 22:50:00 Test Item Value Reference Range Interpretation Comments Eosinophils (test code = 0.0 See_Comment N [A utomated message] The Eosinophils) system which ge nerated this result tra nsmitted reference range : <=4.0. The reference r leo was not used to int erpret this result as normal/abnormal . [facility] CenterObejhxzYVRJGPYTRX9799-28-07 22:50:00 Test Item Value Reference Range Interpretation Comments Segs (test code = Segs) 90.4 45.0-75.0 H [facility] CenterRtqjzqzGTANGAPTNY9462-41-21 22:50:00 Test Item Value Reference Range Interpretation Comments RBC Morph (test code = Normal (03/14/2012 N RBC Morph) 17:50:00) [facility] GLUCOSE [id number] 23:43:00 Test Item Value Reference Range Interpretation Comments Gluc POC Lifscn (test code = Gluc POC 167 70-99 H Lifscn) [facility] GLUCOSE [id number] 23:43:00 Test Item Value Reference Range Interpretation Comments Comment1 (test code = Comment1) Notify RN/ [facility] GLUCOSE NNACOLX5905-52-16 23:43:00 Test Item Value Reference Range Interpretation Comments Comment2 (test code = Comment2) Sliding Scale [facility] GLUCOSE EQPDJAD8626-38-67 17:40:00 Test Item Value Reference Range Interpretation Comments Gluc POC Lifscn (test code = Gluc POC 189 70-99 H Lifscn) [facility] GLUCOSE OTJZGNK2721-57-66 17:40:00 Test Item Value Reference Range Interpretation Comments Comment1 (test code = Comment1) Notify RN/ [facility] GLUCOSE [id number] 17:40:00 Test Item Value Reference Range Interpretation Comments Comment2 (test code = Comment2) Sliding Scale [facility] GLUCOSE CSGMYLG9817-41-25 13:34:00 Test Item Value Reference Range Interpretation Comments Comment2 (test code = Comment2) Sliding Scale [facility] KRIKSQX5949-60-34 13:34:00 Test Item Value Reference Range Interpretation Comments Gluc POC Lifscn (test code = Gluc POC 110 70-99 H Lifscn) [facility] GLUCOSE [id number] 13:34:00 Test Item Value Reference Range Interpretation Comments Comment1 (test code = Comment1) [facility]UorasseRBUCPLWIZ0640-96-28 00:00:00 Test Item Value Reference Range Interpretation Comments U Preg (test code = U Negative (11/28/2011 N Preg) 19:00:00) [facility] CenterXckvpyfJUMNCJMOJC7491-73-99 00:00:00 Test Item Value Reference Range Interpretation Comments Micro? (test code = Performed (11/28/2011 N Micro?) 19:00:00) [facility]EuqnmywKTSYKNNWMG0516-69-83 00:00:00 Test Item Value Reference Range Interpretation Comments UA Sq Epi (test code Occasional /LPF N = UA Sq Epi) (11/28/2011 19:00:00) [facility]oZskpxaxBOXCBKLNTY5047-45-62 00:00:00 Test Item Value Reference Range Interpretation Comments UA RBC (test None Seen See_Comment N [Automated mes pastor] code = UA RBC) (11/28/2011 The system ich 19:00:00) generated this result transmitted ref erence range: <=2. The reference range was not used to int erpret this result as normal/abnormal . [facility] CenterJlmirkbGXLSHAOBZJ3613-79-98 00:00:00 Test Item Value Reference Range Interpretation Comments UA WBC (test code Occasional See_Comment [Automate d message] The = UA WBC) system which ge nerated this result tra nsmitted reference range : <=5. The reference range was not used to interpr et this result as normal/abnormal . [facility]YnnjxunDRMKTJEWOK5179-[facility]-78 [facility]:00:00 Test Item Value Reference Range Interpretation Comments UA Protein (test code Negative mg/dL N = UA Protein) (11/28/2011 19:00:00) [facility]nfpauwSWIBCHCWRR3311-66-68 [facility]:00:00 Test Item Value Reference Range Interpretation Comments UA pH (test code = UA pH) 7.0 1 5.0-8.0 N [facility] CenterLzjskrxZGBSBRPMPP7592-63-46 00:00:00 Test Item Value Reference Range Interpretation Comments UA Spec Grav (test code = UA Spec 1.020 1 N Grav) [facility] CenterSnccuvxZMBHIODXFK3139-58-63 00:00:00 Test Item Value Reference Range Interpretation Comments UA Turbidity (test code = Clear (11/28/2011 N UA Turbidity) 19:00:00) [facility]XewvewsNTVWIFDGTL6449-40-38 00:00:00 Test Item Value Reference Range Interpretation Comments UA Color (test code = Yellow *NA*(11/28/2011 UA Color) 19:00:00) [facility] CenterTfuawesQXVBUBRSHE5058-57-09 00:00:00 Test Item Value Reference Range Interpretation Comments UA Urobilinogen (test code = UA 0.2 0.1-1.0 N Urobilinogen) [facility]oWmhkivdXMMIOGZVUY8980-18-22 00:00:00 Test Item Value Reference Range Interpretation Comments UA Blood (test code = Negative (11/28/2011 N UA Blood) 19:00:00) [facility]oHyyetihPEWYPKGYSO3566-79-45 00:00:00 Test Item Value Reference Range Interpretation Comments UA Bili (test code = Negative *NA*(11/28/2011 UA Bili) 19:00:00) [facility] CenterDtcovanHXKXERFZLT8147-90-26 00:00:00 Test Item Value Reference Range Interpretation Comments UA Ketones (test code = >=80 mg/dL A UA Ketones) *ABN*(11/28/2011 19:00:00) [facility] CenterZdrwmmyQJYMGQIGOF5307-56-40 00:00:00 Test Item Value Reference Range Interpretation Comments UA Glucose (test code = >=1000 mg/dL A UA Glucose) *ABN*(11/28/2011 19:00:00) [facility] CenterKuyhmeqOVCQFNPORT3536-95-82 00:00:00 Test Item Value Reference Range Interpretation Comments UA Nitrite (test code Negative (11/28/2011 N = UA Nitrite) 19:00:00) [facility] CenterXhfyjyhHHIJTTLYQV8317-77-80 00:00:00 Test Item Value Reference Range Interpretation Comments UA Leuk Est (test Negative (11/28/2011 N code = UA Leuk Est) 19:00:00) [facility] CenterLnycbxuUWKFATWHC4344-79-22 20:41:00 Test Item Value Reference Range Interpretation Comments pO2 Roberth (test code = pO2 Roberth) 60 20-49 H [facility] HospitalYsoujwhPDQXJOGDD0882-67-99 20:41:00 Test Item Value Reference Range Interpretation Comments pCO2 Roberth (test code = pCO2 Roberth) 41 38-52 N [facility] HospitalGqamgflGNUBMAXWK5378-49-10 20:41:00 Test Item Value Reference Range Interpretation Comments pH Roberth (test code = pH Roberth) 7.45 7.28-7.42 H [facility] HospitalBwjydhlMYJBLLIVX3051-88-23 20:41:00 Test Item Value Reference Range Interpretation Comments Temp Roberth (test code = Temp Roberth) 37.0 [facility] HospitalOaeejseZIUPONWIH7324-90-36 20:41:00 Test Item Value Reference Range Interpretation Comments O2 Sat Roberth (test code = O2 Sat Roberth) 92.0 40.0-70.0 H [facility] HospitalZmqiykpPVXLBUWLQ4578-91-01 20:41:00 Test Item Value Reference Range Interpretation Comments BE Roberth (test code = 4 See_Comment H [Automa rohit message] The BE Roberth) system which ge nerated this result transmit rohit reference range : <=2. The reference range was not used to interpr et this result as reji l/abnormal. [facility] HospitalVikdavuOJVABFGVO7418-56-23 20:41:00 Test Item Value Reference Range Interpretation Comments HCO3 Roberth (test code = HCO3 Roberth) 28.5 22.0-26.0 H [facility] HospitalIyjwjibDOTBNGPJG6766-13-36 20:00:00 Test Item Value Reference Range Interpretation Comments Lactic Acid Lvl (test code = Lactic 1.6 0.5-2.2 N Acid Lvl) [facility] HospitalKhsiysmFTNQJKSDW4754-05-83 20:00:00 Test Item Value Reference Range Interpretation Comments Lipase Lvl (test code = Lipase Lvl) 125 73-393 N [facility] HospitalRpnzuexAIBILRUZR6028-90-07 20:00:00 Test Item Value Reference Range Interpretation Comments Albumin Lvl (test code = Albumin Lvl) 4.2 3.5-5.0 N [facility] HospitalEfcpoaqHVSHMOUFI8754-61-67 20:00:00 Test Item Value Reference Range Interpretation Comments CO2 (test code = CO2) 23 24-32 L [facility] HospitalEboertoPXYEHJWNR3221-25-45 20:00:00 Test Item Value Reference Range Interpretation Comments Chloride Lvl (test code = Chloride Lvl) 98 95-109 N [facility] HospitalIkbvmcxRJPPTIYIE7028-41-85 20:00:00 Test Item Value Reference Range Interpretation Comments Potassium Lvl (test code = Potassium 3.8 3.5-5.1 N Lvl) [facility] HospitalRqhdxqmLAXBCFGFM3377-38-79 20:00:00 Test Item Value Reference Range Interpretation Comments Sodium Lvl (test code = Sodium Lvl) 138 135-145 N [facility] HospitalLjqxwdnBHUCYRAUL6886-07-47 20:00:00 Test Item Value Reference Range Interpretation Comments Creatinine Lvl (test code = Creatinine 0.7 0.5-1.4 N Lvl) [facility] HospitalPtcmurzJRRDTXLLP0923-93-85 20:00:00 Test Item Value Reference Range Interpretation Comments BUN (test code = BUN) 9 7-22 N [facility] HospitalOklgwllCCGCOEPNN4073-26-06 20:00:00 Test Item Value Reference Range Interpretation Comments Glucose Lvl (test code = Glucose Lvl) 269 70-99 H [facility] HospitalGexqtgnXBJNGOXZT8832-57-19 20:00:00 Test Item Value Reference Range Interpretation Comments B/C Ratio (test code = B/C Ratio) 13 6-25 N [facility] HospitalOaiyheaQVIXVJZTW6993-38-03 20:00:00 Test Item Value Reference Range Interpretation Comments AGAP (test code = AGAP) 20.8 10.0-20.0 H [facility] HospitalFnhtvkoHUZIFLYEU1441-15-20 20:00:00 Test Item Value Reference Range Interpretation Comments Calcium Lvl (test code = Calcium Lvl) 9.3 8.5-10.5 N [facility] HospitalLiefgtvVSOKSJJAD7200-00-19 20:00:00 Test Item Value Reference Range Interpretation Comments Total Protein (test code = Total 6.7 6.4-8.4 N Protein) [facility] HospitalEkgalilIVKJLIFDJ1676-99-61 20:00:00 Test Item Value Reference Range Interpretation Comments A/G Ratio (test code = A/G Ratio) 1.7 0.7-1.6 H [facility] HospitalVwbebalUUFJOPYMR8171-07-89 20:00:00 Test Item Value Reference Range Interpretation Comments Globulin (test code = Globulin) 2.5 2.0-4.0 N [facility] HospitalKeuovwiOTBTVBBSY7812-76-32 20:00:00 Test Item Value Reference Range Interpretation Comments AST (test code = AST) 18 See_Comment N [Auto mated message] The system which ge nerated this result transmit rohit reference range : <=37. The reference range was not used to interpr et this result as reji l/abnormal. [facility] HospitalHmfswtzKRUUCHWID6017-12-04 20:00:00 Test Item Value Reference Range Interpretation Comments Alk Phos (test code = Alk Phos) 62 39-136 N [facility] HospitalJmoqnakJLWEFLJIA3164-93-43 20:00:00 Test Item Value Reference Range Interpretation Comments ALT (test code = ALT) 32 See_Comment N [Auto mated message] The system which ge nerated this result transmit rohit reference range : <=65. The reference range was not used to interpr et this result as reji l/abnormal. [facility] HospitalGcruehwBFHWUCBPE4888-89-53 20:00:00 Test Item Value Reference Range Interpretation Comments Bili Total (test code = Bili Total) 0.7 0.2-1.3 N [facility] CenterAlognsdEKJIPWDJNQ9357-22-47 20:00:00 Test Item Value Reference Range Interpretation Comments Anisocyte (test code = 1+ *ABN*(11/28/2011 A Anisocyte) 15:00:00) [facility] CenterJklvwlsENKEXQBDTC8843-23-58 20:00:00 Test Item Value Reference Range Interpretation Comments Monocytes # (test code 0.1 See_Comment N [Aut omated message] The = Monocytes #) system which generated this result tra nsmitted reference range : <=0.8. The reference r leo was not used to int erpret this result as normal/abnormal . [facility] CenterHnvubvgOOTDUIRALX0426-57-58 20:00:00 Test Item Value Reference Range Interpretation Comments Eosinophils # (test code 0.0 See_Comment N [A utomated message] The = Eosinophils #) system whic h generated this result tra nsmitted reference range : <=0.5. The reference r leo was not used to int erpret this result as normal/abnormal . [facility] CenterZxzjzifEJLQGLTKCI2688-60-49 20:00:00 Test Item Value Reference Range Interpretation Comments Basophils # (test code 0.0 See_Comment N [Aut omated message] The = Basophils #) system which generated this result tra nsmitted reference range : <=0.2. The reference r leo was not used to int erpret this result as normal/abnormal . [facility] CenterZxnzagxKCXNHYXKSP1524-91-82 20:00:00 Test Item Value Reference Range Interpretation Comments Neut Vac (test code = Slight *ABN*(11/28/2011 A Neut Vac) 15:00:00) [facility] CenterVecgcecBYJMUQZXEO2450-17-70 20:00:00 Test Item Value Reference Range Interpretation Comments Large Plt (test code = Slight *ABN*(11/28/2011 A Large Plt) 15:00:00) [facility] CenterSmpexgbCXOHQUDIUG0410-50-83 20:00:00 Test Item Value Reference Range Interpretation Comments Segs-Bands # (test code = Segs-Bands #) 5.7 1.5-8.1 N [facility] CenterBfeagseAOACPFFWPP2552-60-36 20:00:00 Test Item Value Reference Range Interpretation Comments Lymphocytes # (test code = Lymphocytes 0.8 1.0-5.5 L #) [facility] CenterCoafusqGRBOMAHPNZ8998-21-68 20:00:00 Test Item Value Reference Range Interpretation Comments Eosinophils (test code = 0.2 See_Comment N [A utomated message] The Eosinophils) system which ge nerated this result tra nsmitted reference range : <=4.0. The reference r leo was not used to int erpret this result as normal/abnormal . [facility] CenterSybjyzlRTIXWGQAQR0813-14-27 20:00:00 Test Item Value Reference Range Interpretation Comments Basophils (test code = 0.0 See_Comment N [Aut omated message] The Basophils) system which ge nerated this result tra nsmitted reference range : <=1.0. The reference r leo was not used to int erpret this result as normal/abnormal . [facility] CenterRjatmrtSFQQUKDKZC9519-20-21 20:00:00 Test Item Value Reference Range Interpretation Comments Monocytes (test code = Monocytes) 1.9 2.0-12.0 L [facility] CenterPoqiedjJNYUMXFHAL6878-37-29 20:00:00 Test Item Value Reference Range Interpretation Comments Segs (test code = Segs) 86.2 45.0-75.0 H [facility] CenterYpymveuSIINSSFYQP7882-77-32 20:00:00 Test Item Value Reference Range Interpretation Comments Lymphocytes (test code = Lymphocytes) 11.7 20.0-40.0 L [facility] CenterNzuefcoINOVJQHBUG1965-97-52 20:00:00 Test Item Value Reference Range Interpretation Comments MPV (test code = MPV) 10.8 7.4-10.4 H [facility] CenterMlxlknzAMCVZSUUOR5095-80-01 20:00:00 Test Item Value Reference Range Interpretation Comments Platelet (test code = Platelet) 161 133-450 N [facility] CenterMhnuiepOQNAFJGRTX5889-20-57 20:00:00 Test Item Value Reference Range Interpretation Comments MCHC (test code = MCHC) 35.6 32.0-36.0 N [facility] CenterFddgxvsVRSHSCBGGQ4651-49-42 20:00:00 Test Item Value Reference Range Interpretation Comments RDW (test code = RDW) 12.4 11.5-14.5 N [facility] CenterGyczvswNBVPSARFHQ8564-67-22 20:00:00 Test Item Value Reference Range Interpretation Comments MCH (test code = MCH) 30.7 pg 27.0-31.0 N [facility] CenterEoewbykQEJTGUYUPM0077-69-59 20:00:00 Test Item Value Reference Range Interpretation Comments MCV (test code = MCV) 86.1 81.0-99.0 N [facility] CenterCsuphbcDGQWLWDLMJ0433-74-73 20:00:00 Test Item Value Reference Range Interpretation Comments Hct (test code = Hct) 33.6 36.0-48.0 L [facility] CenterJiwtakrSZNMUTLNNK9097-95-24 20:00:00 Test Item Value Reference Range Interpretation Comments Hgb (test code = Hgb) 12.0 12.0-16.0 N [facility] CenterOupooujTXOCRGLBSV9284-73-97 20:00:00 Test Item Value Reference Range Interpretation Comments RBC (test code = RBC) 3.90 4.20-5.40 L [facility] CenterQqiczqlZXVVPQOCGW3198-26-82 20:00:00 Test Item Value Reference Range Interpretation Comments WBC (test code = WBC) 6.6 3.7-10.4 N [facility] HospitalFracbwmJYPGMNYCL6466-68-07 19:51:00 Test Item Value Reference Range Interpretation Comments UDS Note (test code = See Note UDS Note) 5*NA*(11/28/2011 14:51:00) [facility] HospitalNukmkueEGGRJPYQX8433-13-72 19:51:00 Test Item Value Reference Range Interpretation Comments U Phencyc Scr (test Negative code = U Phencyc Scr) *NA*(11/28/2011 14:51:00) [facility] HospitalYcrzsvkMTHGLCMHT1842-29-69 19:51:00 Test Item Value Reference Range Interpretation Comments U Kelly Scr (test code Negative *NA*(11/28/2011 = U Kelly Scr) 14:51:00) [facility] HospitalZiacrviRLVXFFTUI6985-31-97 19:51:00 Test Item Value Reference Range Interpretation Comments U Amph Scr (test code Negative *NA*(11/28/2011 = U Amph Scr) 14:51:00) [facility] HospitalZnptojmJQTDDGJCT0718-82-21 19:51:00 Test Item Value Reference Range Interpretation Comments U Opiate Scr (test Negative code = U Opiate Scr) *NA*(11/28/2011 14:51:00) [facility] HospitalLifyylkLLDTLEMTW5791-98-79 19:51:00 Test Item Value Reference Range Interpretation Comments U Cocaine Scr (test Negative code = U Cocaine Scr) *NA*(11/28/2011 14:51:00) [facility] HospitalYlpqhblKBZXSDZKO9709-99-42 19:51:00 Test Item Value Reference Range Interpretation Comments U Cannab Scr (test Negative code = U Cannab Scr) *NA*(11/28/2011 14:51:00) [facility] HospitalOqvldcbMQOBJJZPY6090-18-68 19:51:00 Test Item Value Reference Range Interpretation Comments U Benzodia Scr (test Negative code = U Benzodia Scr) *NA*(11/28/2011 14:51:00) [facility] GLUCOSE OHPKFWE1275-93-84 16:20:00 Test Item Value Reference Range Interpretation Comments Comment1 (test code = Comment1) Notify RN/MD [facility] GLUCOSE UFALMFY1664-97-69 16:20:00 Test Item Value Reference Range Interpretation Comments Gluc POC Lifscn (test code = Gluc POC 328 70-99 H Lifscn) [facility] HospitalKtdctpaCIOYOGKSP8153-92-55 15:30:00 Test Item Value Reference Range Interpretation Comments U Preg (test code = U Negative (09/18/2011 N Preg) 10:30:00) [facility]HdxbnuqKQDAJIKVWK5260-98-58 15:30:00 Test Item Value Reference Range Interpretation Comments UA WBC (test code = UA None Seen (09/18/2011 N WBC) 10:30:00) [facility] CenterMytkqwbRAJAYVWUDK9487-51-79 15:30:00 Test Item Value Reference Range Interpretation Comments UA RBC (test None Seen See_Comment N [Automated mes pastor] code = UA RBC) (09/18/2011 The system ich 10:30:00) generated this result transmitted ref erence range: <=2. The reference range was not used to int erpret this result as normal/abnormal . [facility]PdzazziLTRVLKETFV6325-49-85 15:30:00 Test Item Value Reference Range Interpretation Comments UA Bacteria (test code = None Seen (09/18/2011 N UA Bacteria) 10:30:00) [facility]oGdxjqnkKASWVKPBVD2128-10-79 15:30:00 Test Item Value Reference Range Interpretation Comments UA Amorph Destiny (test Few /HPF A code = UA Amorph Destiny) *ABN*(09/18/2011 10:30:00) [facility]oDgclptiIQUZJEUYBH3536-76-51 15:30:00 Test Item Value Reference Range Interpretation Comments Micro? (test code = Performed (09/18/2011 N Micro?) 10:30:00) [facility]oMpshbfiHTSSNDXRUX3629-26-68 15:30:00 Test Item Value Reference Range Interpretation Comments UA Sq Epi (test code = Rare /LPF (09/18/2011 N UA Sq Epi) 10:30:00) [facility]oXmumghmUXEICWJKDN0980-65-94 15:30:00 Test Item Value Reference Range Interpretation Comments UA Ketones (test code = 15 mg/dL A UA Ketones) *ABN*(09/18/2011 10:30:00) [facility]oGcledzwWPCKSCIFQW0001-80-46 15:30:00 Test Item Value Reference Range Interpretation Comments UA Glucose (test code = >=1000 mg/dL A UA Glucose) *ABN*(09/18/2011 10:30:00) [facility]oKehcoyzUOSQSHHCDK5353-32-55 15:30:00 Test Item Value Reference Range Interpretation Comments UA Protein (test code = Trace A UA Protein) *ABN*(09/18/2011 10:30:00) [facility]oRwyrbzdUGGVKGVSVU9479-19-91 15:30:00 Test Item Value Reference Range Interpretation Comments UA Urobilinogen (test code = UA 0.2 0.1-1.0 N Urobilinogen) [facility]oNcogshuXZEWAJPQXA2702-84-92 15:30:00 Test Item Value Reference Range Interpretation Comments UA Blood (test code = Negative (09/18/2011 N UA Blood) 10:30:00) [facility] CenterYrcnslqNZYRLOQYOL6245-44-07 15:30:00 Test Item Value Reference Range Interpretation Comments UA Bili (test code = Negative *NA*(09/18/2011 UA Bili) 10:30:00) [facility]oMnujxxqJDJULPUTYZ5880-55-63 15:30:00 Test Item Value Reference Range Interpretation Comments UA Leuk Est (test Negative (09/18/2011 N code = UA Leuk Est) 10:30:00) [facility] CenterStakjqbRTTFNJGLGZ7582-98-68 15:30:00 Test Item Value Reference Range Interpretation Comments UA Nitrite (test code Negative (09/18/2011 N = UA Nitrite) 10:30:00) [facility]oOeiubxnPLURAVZVIY1645-68-49 15:30:00 Test Item Value Reference Range Interpretation Comments UA pH (test code = UA pH) 7.5 1 5.0-8.0 N [facility] CenterVcmhgotWCBCEDUFZI9728-16-25 15:30:00 Test Item Value Reference Range Interpretation Comments UA Spec Grav (test code = UA Spec 1.010 1 N Grav) [facility] CenterOsrzgaiBUYEJPBHIH7722-29-97 15:30:00 Test Item Value Reference Range Interpretation Comments UA Turbidity (test code Slight Cloudy N = UA Turbidity) (09/18/2011 10:30:00) [facility]oSivtutuRPUEIZDCWZ9781-61-44 15:30:00 Test Item Value Reference Range Interpretation Comments UA Color (test code = Yellow *NA*(09/18/2011 UA Color) 10:30:00) [facility]LpfdiawFGLQNVEJM5295-34-32 14:07:00 Test Item Value Reference Range Interpretation Comments Phosphorus (test code = Phosphorus) 4.4 2.5-4.5 N [facility] HospitalAyhczdiBHBEOJNOX2771-54-51 14:07:00 Test Item Value Reference Range Interpretation Comments Magnesium Lvl (test code = Magnesium 1.6 1.8-2.4 L Lvl) [facility] NNCMKFD0966-89-72 14:01:00 Test Item Value Reference Range Interpretation Comments Gluc POC Lifscn (test code = Gluc POC no gt 70-99 A Lifscn) [facility] HospitalWjnhltoZGWDGRRYU3030-52-37 13:52:00 Test Item Value Reference Range Interpretation Comments pO2 Roberth (test code = pO2 Roberth) 24 20-49 N [facility] HospitalSevnqknTXETJUDNY3677-99-72 13:52:00 Test Item Value Reference Range Interpretation Comments HCO3 Roberth (test code = HCO3 Roberth) 32.0 22.0-26.0 H [facility] HospitalVtjbipyULJWEIKTO8715-31-54 13:52:00 Test Item Value Reference Range Interpretation Comments pCO2 Roberth (test code = pCO2 Roberth) 44 38-52 N [facility] HospitalKbgpmwpWQHIKLJFY0950-26-26 13:52:00 Test Item Value Reference Range Interpretation Comments BE Roberth (test code = 7 See_Comment H [Automa rohit message] The BE Roberth) system which ge nerated this result transmit rohit reference range : <=2. The reference range was not used to interpr et this result as reji l/abnormal. [facility] HospitalWvdqunhCLQXUVCSX3603-40-82 13:52:00 Test Item Value Reference Range Interpretation Comments O2 Sat Roberth (test code = O2 Sat Roberth) 48.0 40.0-70.0 N [facility] HospitalJnukplbNNJAJNSYY4324-02-32 13:52:00 Test Item Value Reference Range Interpretation Comments Temp Roberth (test code = Temp Roberth) 37.0 [facility] HospitalDnhhyeiMGULTDJTY7170-06-71 13:52:00 Test Item Value Reference Range Interpretation Comments pH Roberth (test code = pH Roberth) 7.47 7.28-7.42 H [facility] HospitalJchsruaFCYTJTGNP6254-63-58 13:52:00 Test Item Value Reference Range Interpretation Comments Calcium Lvl (test code = Calcium Lvl) 10.1 8.5-10.5 N [facility] HospitalQdudorpIXYYXUOZG5912-09-78 13:52:00 Test Item Value Reference Range Interpretation Comments Chloride Lvl (test code = Chloride Lvl) 92 95-109 L [facility] HospitalGyjuaicOFRKGLKQX6233-10-24 13:52:00 Test Item Value Reference Range Interpretation Comments CO2 (test code = CO2) 30 24-32 N [facility] HospitalZdiisvrPPOIRZFSP0425-33-59 13:52:00 Test Item Value Reference Range Interpretation Comments Potassium Lvl (test code = Potassium 3.5 3.5-5.1 N Lvl) [facility] HospitalVpdzwcfROAMXQNTT0536-25-35 13:52:00 Test Item Value Reference Range Interpretation Comments Sodium Lvl (test code = Sodium Lvl) 133 135-145 L [facility] HospitalRswgbytJNUENCCIH0444-28-43 13:52:00 Test Item Value Reference Range Interpretation Comments Creatinine Lvl (test code = Creatinine 1.3 0.5-1.4 N Lvl) [facility] HospitalZqqaoocHHAAHNBOC3531-92-00 13:52:00 Test Item Value Reference Range Interpretation Comments Glucose Lvl (test code = Glucose Lvl) 383 70-99 H [facility] HospitalNfiigmnDZRVUKKHW8213-72-22 13:52:00 Test Item Value Reference Range Interpretation Comments BUN (test code = BUN) 17 7-22 N [facility] HospitalXqcyejmZEASQPGQT9467-68-18 13:52:00 Test Item Value Reference Range Interpretation Comments AGAP (test code = AGAP) 14.5 10.0-20.0 N [facility] CenterTyavpwhNQIFAOWIEL6614-90-32 13:52:00 Test Item Value Reference Range Interpretation Comments MPV (test code = MPV) 12.0 7.4-10.4 H [facility] CenterSqfghlzZGNFFVYVBH1450-96-44 13:52:00 Test Item Value Reference Range Interpretation Comments Platelet (test code = Platelet) 226 133-450 N [facility] CenterZscwowdBBFVDYWHZV1799-93-67 13:52:00 Test Item Value Reference Range Interpretation Comments MCHC (test code = MCHC) 33.7 32.0-36.0 N [facility] CenterKcskdejHRJEHBZFBO6850-20-79 13:52:00 Test Item Value Reference Range Interpretation Comments MCH (test code = MCH) 28.5 pg 27.0-31.0 N [facility] CenterUbwepgnSDKZIFHPYM5343-96-40 13:52:00 Test Item Value Reference Range Interpretation Comments RDW (test code = RDW) 15.1 11.5-14.5 H [facility] CenterFpaaylzAPQTQEQWNN7466-93-71 13:52:00 Test Item Value Reference Range Interpretation Comments MCV (test code = MCV) 84.6 81.0-99.0 N [facility] CenterQtceajoNALRLHITFQ8738-10-50 13:52:00 Test Item Value Reference Range Interpretation Comments Hct (test code = Hct) 36.4 36.0-48.0 N [facility] CenterPvcbccrJSSCTMRBLJ4668-41-10 13:52:00 Test Item Value Reference Range Interpretation Comments Hgb (test code = Hgb) 12.3 12.0-16.0 N [facility] CenterDbxocoaRNMHFIZIJV3609-51-57 13:52:00 Test Item Value Reference Range Interpretation Comments RBC (test code = RBC) 4.30 4.20-5.40 N [facility] CenterTcuoukqMIYGVYAVFO1104-90-08 13:52:00 Test Item Value Reference Range Interpretation Comments WBC (test code = WBC) 11.7 3.7-10.4 H [facility] CenterQrmubavXNAFPHOGEO5922-65-80 13:52:00 Test Item Value Reference Range Interpretation Comments Monocytes (test code = Monocytes) 2.9 2.0-12.0 N [facility] CenterPdswqgwGOUSXHZOVJ5132-40-01 13:52:00 Test Item Value Reference Range Interpretation Comments Eosinophils (test code = 0.2 See_Comment N [A utomated message] The Eosinophils) system which ge nerated this result tra nsmitted reference range : <=4.0. The reference r leo was not used to int erpret this result as normal/abnormal . [facility] CenterDkhkubrZAXUSQYLIK9783-17-55 13:52:00 Test Item Value Reference Range Interpretation Comments Basophils (test code = 0.0 See_Comment N [Aut omated message] The Basophils) system which ge nerated this result tra nsmitted reference range : <=1.0. The reference r leo was not used to int erpret this result as normal/abnormal . [facility] CenterBtxtbksLVPJIWIHMS4269-63-87 13:52:00 Test Item Value Reference Range Interpretation Comments Eosinophils # (test code 0.0 See_Comment N [A utomated message] The = Eosinophils #) system [facility] generated this result tra nsmitted reference range : <=0.5. The reference r elo was not used to int erpret this result as normal/abnormal . [facility] CenterIvubrxpFDIKEEUEAA7205-71-41 13:52:00 Test Item Value Reference Range Interpretation Comments Monocytes # (test code 0.3 See_Comment N [Aut omated message] The = Monocytes #) system which generated this result tra nsmitted reference range : <=0.8. The reference r leo was not used to int erpret this result as normal/abnormal . [facility] CenterDkgytapMCQZUFWVBL4601-86-43 13:52:00 Test Item Value Reference Range Interpretation Comments Segs (test code = Segs) 92.0 45.0-75.0 H [facility] CenterEgzcgdhWVYLSIERNB3063-62-76 13:52:00 Test Item Value Reference Range Interpretation Comments Lymphocytes (test code = Lymphocytes) 4.9 20.0-40.0 L [facility] CenterRvnmgxiEECXTWUYZE2262-04-94 13:52:00 Test Item Value Reference Range Interpretation Comments Spherocyte (test code = Rare A Spherocyte) *ABN*(09/18/2011 08:52:00) [facility] CenterZrvctsxFPPCNODBTI6829-17-82 13:52:00 Test Item Value Reference Range Interpretation Comments Large Plt (test code = Slight *ABN*(09/18/2011 A Large Plt) 08:52:00) [facility] CenterGiucdjqZKRBPSXRJB9290-31-46 13:52:00 Test Item Value Reference Range Interpretation Comments Microcyte (test code = 1+ *ABN*(09/18/2011 A Microcyte) 08:52:00) [facility] CenterLbrzyhxMXFCISGPTM3267-95-91 13:52:00 Test Item Value Reference Range Interpretation Comments Schistocyte (test code = Schistocyte) Rare [facility] CenterAklfuxfHNZAGLRYFT5748-67-90 13:52:00 Test Item Value Reference Range Interpretation Comments Macrocyte (test code = 1+ *ABN*(09/18/2011 A Macrocyte) 08:52:00) [facility] CenterJgrefunBJYFVTECSB8057-08-81 13:52:00 Test Item Value Reference Range Interpretation Comments Lymphocytes # (test code = Lymphocytes 0.6 1.0-5.5 L #) [facility] CenterGfrimsdURUSETGDMB7891-64-83 13:52:00 Test Item Value Reference Range Interpretation Comments Segs-Bands # (test code = Segs-Bands #) 10.8 1.5-8.1 H [facility] CenterNgypgjlDDEORBBCZM3949-73-04 13:52:00 Test Item Value Reference Range Interpretation Comments Basophils # (test code 0.0 See_Comment N [Aut omated message] The = Basophils #) system which generated this result tra nsmitted reference range : <=0.2. The reference r leo was not used to int erpret this result as normal/abnormal . [facility] CenterNmprmuqGVRZWXJBKZ7154-22-68 13:52:00 Test Item Value Reference Range Interpretation Comments Anisocyte (test code = 1+ *ABN*(09/18/2011 A Anisocyte) 08:52:00) [facility] HospitalFmrkizpQYXPHDCWSN1049-67-53 13:52:00 Test Item Value Reference Range Interpretation Comments CDC-HIV 1/2 Ab (test Negative *NA*(09/18/2011 code = CDC-HIV 1/2 08:52:00) Ab) [facility] GLUCOSE [id number] 17:34:00 Test Item Value Reference Range Interpretation Comments Gluc POC Lifscn (test code = Gluc POC 215 70-99 H Lifscn) [facility] GLUCOSE GVFMCLS6596-82-27 17:34:00 Test Item Value Reference Range Interpretation Comments Comment1 (test code = Comment1) Notify RN/MD [facility] GLUCOSE FMLQKIH2097-27-08 11:43:00 Test Item Value Reference Range Interpretation Comments Comment1 (test code = Comment1) Notify RN/MD [facility] GLUCOSE IYRCEQV1595-12-11 11:43:00 Test Item Value Reference Range Interpretation Comments Gluc POC Lifscn (test code = Gluc POC 91 65-110 N Lifscn) [facility] GLUCOSE GYVWMHI3980-66-34 02:45:00 Test Item Value Reference Range Interpretation Comments Comment1 (test code = Comment1) Notify RN/MD [facility] GLUCOSE KFWLGTE7802-51-13 02:45:00 Test Item Value Reference Range Interpretation Comments Gluc POC Lifscn (test code = Gluc POC 148 65-110 H Lifscn) [facility]YhavwodVQFUNXHCB1361-99-17 08:47:00 Test Item Value Reference Range Interpretation Comments Sodium Lvl (test code = Sodium Lvl) 143 135-145 N [facility] HospitalBtyoduaHKKFZZRQM3356-98-74 08:47:00 Test Item Value Reference Range Interpretation Comments Glucose Lvl (test code = Glucose Lvl) 105 [facility] HospitalGfnhynqTMRCXOCYL9531-70-79 08:47:00 Test Item Value Reference Range Interpretation Comments CO2 (test code = CO2) 29 24-32 N [facility] HospitalNyxpfoaKIAYIFOQC8972-44-36 08:47:00 Test Item Value Reference Range Interpretation Comments Chloride Lvl (test code = Chloride Lvl) 103 95-109 N [facility] HospitalSttnkbiWDUMQKBKL1728-05-05 08:47:00 Test Item Value Reference Range Interpretation Comments BUN (test code = BUN) 10 7-22 N [facility] HospitalNeimbfoMITHBCWVP6061-53-83 08:47:00 Test Item Value Reference Range Interpretation Comments Potassium Lvl (test code = Potassium 3.8 3.5-5.1 N Lvl) [facility] HospitalDebxkmoIKXRBEGXO6952-14-07 08:47:00 Test Item Value Reference Range Interpretation Comments Creatinine Lvl (test code = Creatinine 0.6 0.5-1.4 N Lvl) [facility] HospitalVflfsbfAQUXSYPFW2536-10-51 08:47:00 Test Item Value Reference Range Interpretation Comments Calcium Lvl (test code = Calcium Lvl) 8.5 8.5-10.5 N [facility] HospitalJyfsjfePGIPXSQKB9331-82-42 08:47:00 Test Item Value Reference Range Interpretation Comments AGAP (test code = AGAP) 14.8 10.0-20.0 N [facility] CenterJdiltssFBOEHCUSJU3978-40-14 08:47:00 Test Item Value Reference Range Interpretation Comments MCH (test code = MCH) 28.9 pg 27.0-31.0 N [facility] CenterOgoyfemKIYNKGYBEG5345-91-85 08:47:00 Test Item Value Reference Range Interpretation Comments MCV (test code = MCV) 82.1 81.0-99.0 N [facility] CenterTbdqjtlDKXXRORNKG6170-11-82 08:47:00 Test Item Value Reference Range Interpretation Comments Hct (test code = Hct) 25.9 36.0-48.0 L [facility] CenterZzsbsuySEEPVDUCEQ8152-99-28 08:47:00 Test Item Value Reference Range Interpretation Comments Platelet (test code = Platelet) 233 133-450 N [facility] CenterPljvsshKOEFXYGCAK0618-55-40 08:47:00 Test Item Value Reference Range Interpretation Comments RDW (test code = RDW) 14.5 11.5-14.5 N [facility] CenterPvfblamUVVVRXIQEM5418-53-29 08:47:00 Test Item Value Reference Range Interpretation Comments MCHC (test code = MCHC) 35.2 32.0-36.0 N [facility] CenterIvjrbfwCPLOTYXSPU4176-17-58 08:47:00 Test Item Value Reference Range Interpretation Comments Hgb (test code = Hgb) 9.1 12.0-16.0 L [facility] CenterLhmjsetFWDVFOSGLR2410-11-76 08:47:00 Test Item Value Reference Range Interpretation Comments RBC (test code = RBC) 3.15 4.20-5.40 L [facility] CenterAffbznwFGQKHNLFBO0570-40-65 08:47:00 Test Item Value Reference Range Interpretation Comments MPV (test code = MPV) 9.0 7.4-10.4 N [facility] CenterShentxiPXJUXCACIJ8885-72-74 08:47:00 Test Item Value Reference Range Interpretation Comments WBC (test code = WBC) 6.3 3.7-10.4 N [facility] CenterOzwbnraXSVAPCZIJV3307-18-23 08:47:00 Test Item Value Reference Range Interpretation Comments Eosinophils # (test code 0.0 See_Comment N [A utomated message] The = Eosinophils #) system whic h generated this result tra nsmitted reference range : <=0.5. The reference r leo was not used to int erpret this result as normal/abnormal . [facility] CenterClytrwrXAXXRTOIEB0648-77-39 08:47:00 Test Item Value Reference Range Interpretation Comments Basophils # (test code 0.0 See_Comment N [Aut omated message] The = Basophils #) system which generated this result tra nsmitted reference range : <=0.2. The reference r leo was not used to int erpret this result as normal/abnormal . [facility] CenterLarhjubVAHRSJOLAK2898-58-23 08:47:00 Test Item Value Reference Range Interpretation Comments Segs-Bands # (test code = Segs-Bands #) 3.8 1.5-8.1 N [facility] CenterEyynfdzQIUNBPXXTR2137-32-84 08:47:00 Test Item Value Reference Range Interpretation Comments Lymphocytes # (test code = Lymphocytes 2.0 1.0-5.5 N #) [facility] CenterTdnewcoYXLNIZXPGO4418-87-79 08:47:00 Test Item Value Reference Range Interpretation Comments Basophils (test code = 0.5 See_Comment N [Aut omated message] The Basophils) system which ge nerated this result tra nsmitted reference range : <=1.0. The reference r leo was not used to int erpret this result as normal/abnormal . [facility] CenterBltdslrWHCVEISUGI1400-58-34 08:47:00 Test Item Value Reference Range Interpretation Comments Eosinophils (test code = 0.7 See_Comment N [A utomated message] The Eosinophils) system which ge nerated this result tra nsmitted reference range : <=4.0. The reference r leo was not used to int erpret this result as normal/abnormal . [facility] CenterTzvubrvTFVVTERJUQ5560-27-33 08:47:00 Test Item Value Reference Range Interpretation Comments Monocytes (test code = Monocytes) 6.2 2.0-12.0 N [facility] CenterDgsuvppZSDSJYEUQA9457-40-42 08:47:00 Test Item Value Reference Range Interpretation Comments Segs (test code = Segs) 61.1 45.0-75.0 N [facility] CenterTeunserIBMEPMFSRZ2809-05-09 08:47:00 Test Item Value Reference Range Interpretation Comments Lymphocytes (test code = Lymphocytes) 31.5 20.0-40.0 N [facility] CenterNqkernkOSIKOVURCG4745-18-88 08:47:00 Test Item Value Reference Range Interpretation Comments Monocytes # (test code 0.4 See_Comment N [Aut omated message] The = Monocytes #) system which generated this result tra nsmitted reference range : <=0.8. The reference r leo was not used to int erpret this result as normal/abnormal . [facility] HospitalIybhwyeACSJFPPKK9744-35-50 10:54:00 Test Item Value Reference Range Interpretation Comments CO2 (test code = CO2) 27 24-32 N [facility] HospitalRbarnvyTGDUQITUH4485-77-05 10:54:00 Test Item Value Reference Range Interpretation Comments Chloride Lvl (test code = Chloride Lvl) 104 95-109 N [facility] HospitalJipbciwGXNZKZJLD4684-70-51 10:54:00 Test Item Value Reference Range Interpretation Comments Creatinine Lvl (test code = Creatinine 0.5 0.5-1.4 N Lvl) [facility] HospitalVqwvccnTXWJXBPYF2706-95-73 10:54:00 Test Item Value Reference Range Interpretation Comments BUN (test code = BUN) 10 7-22 N [facility] HospitalKcwzgddZVIHGROHB4786-31-12 10:54:00 Test Item Value Reference Range Interpretation Comments Potassium Lvl (test code = Potassium 4.1 3.5-5.1 N Lvl) [facility] HospitalTzufixyKPHOZGWJY0620-56-20 10:54:00 Test Item Value Reference Range Interpretation Comments Sodium Lvl (test code = Sodium Lvl) 141 135-145 N [facility] HospitalNujtorkHZPMUWGFE0827-44-01 10:54:00 Test Item Value Reference Range Interpretation Comments Glucose Lvl (test code = Glucose Lvl) 83 [facility] HospitalLbutsudZTBVNFTXD0256-23-61 10:54:00 Test Item Value Reference Range Interpretation Comments Calcium Lvl (test code = Calcium Lvl) 8.4 8.5-10.5 L [facility] HospitalZundglvTUWLMWQLY1001-27-71 10:54:00 Test Item Value Reference Range Interpretation Comments AGAP (test code = AGAP) 14.1 10.0-20.0 N [facility] CenterWrogwvtCVMKDKWYXN0659-19-80 10:54:00 Test Item Value Reference Range Interpretation Comments Hct (test code = Hct) 35.5 36.0-48.0 L [facility] CenterLzxrtspNEMBAYLYJB9333-79-46 10:54:00 Test Item Value Reference Range Interpretation Comments WBC (test code = WBC) 4.7 3.7-10.4 N [facility] CenterAzeuyleWDTYMXEDTX0330-57-33 10:54:00 Test Item Value Reference Range Interpretation Comments MCV (test code = MCV) 92.6 81.0-99.0 N [facility] CenterLxxnnazXSPCRYQNMJ6991-02-02 10:54:00 Test Item Value Reference Range Interpretation Comments MCH (test code = MCH) 31.4 pg 27.0-31.0 H [facility] CenterSpudylkYSSGQGTZSO6781-00-70 10:54:00 Test Item Value Reference Range Interpretation Comments RBC (test code = RBC) 3.84 4.20-5.40 L [facility] CenterZppuplxBECXHISCQV7756-76-96 10:54:00 Test Item Value Reference Range Interpretation Comments Hgb (test code = Hgb) 12.1 12.0-16.0 N [facility] CenterCxhuzooPEMXDXHCMO9419-37-78 10:54:00 Test Item Value Reference Range Interpretation Comments Platelet (test code = Platelet) 287 133-450 N [facility] CenterAwclqkvCMASZMEEYL9646-18-46 10:54:00 Test Item Value Reference Range Interpretation Comments RDW (test code = RDW) 12.7 11.5-14.5 N [facility] CenterMutiwfvOJDVVYGYQO3415-39-44 10:54:00 Test Item Value Reference Range Interpretation Comments MCHC (test code = MCHC) 33.9 32.0-36.0 N [facility] CenterZuefwwsIKVEOOMTUQ8448-32-41 10:54:00 Test Item Value Reference Range Interpretation Comments MPV (test code = MPV) 7.2 7.4-10.4 L [facility] CenterBtbnqlfZJGSDHUGFA7648-60-47 10:54:00 Test Item Value Reference Range Interpretation Comments INR (test code = INR) 0.95 0.85-1.17 N [facility] CenterWvxtptyZZNAKYFOYX3813-24-04 10:54:00 Test Item Value Reference Range Interpretation Comments PT (test code = PT) 12.7 s 12.0-14.7 N [facility] CenterRoovbokJZEGRCEQBS4242-11-83 10:54:00 Test Item Value Reference Range Interpretation Comments PTT (test code = PTT) 28.5 s 22.9-35.8 N [facility] CenterFjadqtuCXGMDBELDF2402-62-00 10:54:00 Test Item Value Reference Range Interpretation Comments Eosinophils # (test code 0.1 See_Comment N [A utomated message] The = Eosinophils #) system whic h generated this result tra nsmitted reference range : <=0.5. The reference r leo was not used to int erpret this result as normal/abnormal . [facility] CenterTopwlusENMXINCIDP5343-80-84 10:54:00 Test Item Value Reference Range Interpretation Comments Basophils # (test code 0.0 See_Comment N [Aut omated message] The = Basophils #) system which generated this result tra nsmitted reference range : <=0.2. The reference r leo was not used to int erpret this result as normal/abnormal . [facility] CenterPgmeyscWVFHFJEGMH6552-72-69 10:54:00 Test Item Value Reference Range Interpretation Comments Basophils (test code = 0.4 See_Comment N [Aut omated message] The Basophils) system which ge nerated this result tra nsmitted reference range : <=1.0. The reference r leo was not used to int erpret this result as normal/abnormal . [facility] CenterEoknqexIZFGIXXHAC8530-00-90 10:54:00 Test Item Value Reference Range Interpretation Comments Segs-Bands # (test code = Segs-Bands #) 2.1 1.5-8.1 N [facility] CenterJtqdhwlLBSCYZRAGW7931-87-75 10:54:00 Test Item Value Reference Range Interpretation Comments Monocytes (test code = Monocytes) 9.0 2.0-12.0 N [facility] CenterWbujkniXWVHHZPYBR7505-88-68 10:54:00 Test Item Value Reference Range Interpretation Comments Eosinophils (test code = 2.4 See_Comment N [A utomated message] The Eosinophils) system which ge nerated this result tra nsmitted reference range : <=4.0. The reference r leo was not used to int erpret this result as normal/abnormal . [facility] CenterLrnxwlhMTOAKYRIOU4125-38-17 10:54:00 Test Item Value Reference Range Interpretation Comments Monocytes # (test code 0.4 See_Comment N [Aut omated message] The = Monocytes #) system which generated this result tra nsmitted reference range : <=0.8. The reference r leo was not used to int erpret this result as normal/abnormal . [facility] CenterIvbhbenPZXMLMDUIS6214-92-80 10:54:00 Test Item Value Reference Range Interpretation Comments Lymphocytes # (test code = Lymphocytes 2.0 1.0-5.5 N #) [facility] CenterBedhafwXDYSJWJOMP8766-72-98 10:54:00 Test Item Value Reference Range Interpretation Comments Lymphocytes (test code = Lymphocytes) 42.8 20.0-40.0 H [facility] CenterIwxgjztBFJZLFHBCI4909-22-85 10:54:00 Test Item Value Reference Range Interpretation Comments Segs (test code = Segs) 45.4 45.0-75.0 N [facility] HospitalEyumlreVNGNYAMKR9121-19-00 10:02:00 Test Item Value Reference Range Interpretation Comments Chloride Lvl (test code = Chloride Lvl) 105 95-109 N [facility] HospitalCukztewTDHTVKIBI3436-58-70 10:02:00 Test Item Value Reference Range Interpretation Comments Potassium Lvl (test code = Potassium 4.1 3.5-5.1 N Lvl) [facility] HospitalVfixlfyAVIPLLSKC7398-92-33 10:02:00 Test Item Value Reference Range Interpretation Comments Sodium Lvl (test code = Sodium Lvl) 143 135-145 N [facility] HospitalQzxbdcbXKCWUFXPF6190-43-91 10:02:00 Test Item Value Reference Range Interpretation Comments CO2 (test code = CO2) 29 24-32 N [facility] HospitalZksosdqASBLBOZXB7016-64-48 10:02:00 Test Item Value Reference Range Interpretation Comments Calcium Lvl (test code = Calcium Lvl) 8.7 8.5-10.5 N [facility] HospitalOuizztlUQXNABWRT8552-82-74 10:02:00 Test Item Value Reference Range Interpretation Comments BUN (test code = BUN) 6 7-22 L [facility] HospitalPnrxlogNJTEBAJHO8226-49-84 10:02:00 Test Item Value Reference Range Interpretation Comments Creatinine Lvl (test code = Creatinine 0.6 0.5-1.4 N Lvl) [facility] HospitalHgqbspeSSFXSSBXM7860-57-56 10:02:00 Test Item Value Reference Range Interpretation Comments Glucose Lvl (test code = Glucose Lvl) 118 [facility] HospitalJilvhhiLKTVXLKLQ9686-14-89 10:02:00 Test Item Value Reference Range Interpretation Comments AGAP (test code = AGAP) 13.1 10.0-20.0 N [facility] CenterFfyvnepLELWSEFTYM8930-38-72 10:02:00 Test Item Value Reference Range Interpretation Comments Basophils # (test code 0.0 See_Comment N [Aut omated message] The = Basophils #) system which generated this result tra nsmitted reference range : <=0.2. The reference r leo was not used to int erpret this result as normal/abnormal . [facility] CenterBgopigtZZMLZIUTRI8312-02-07 10:02:00 Test Item Value Reference Range Interpretation Comments Monocytes # (test code 0.3 See_Comment N [Aut omated message] The = Monocytes #) system which generated this result tra nsmitted reference range : <=0.8. The reference r leo was not used to int erpret this result as normal/abnormal . [facility] CenterOjhbogdHKXRGBXKOM7015-08-78 10:02:00 Test Item Value Reference Range Interpretation Comments Eosinophils # (test code 0.1 See_Comment N [A utomated message] The = Eosinophils #) system whic h generated this result tra nsmitted reference range : <=0.5. The reference r leo was not used to int erpret this result as normal/abnormal . [facility] CenterIrutjkdOTNCXAGZJL0765-21-70 10:02:00 Test Item Value Reference Range Interpretation Comments Segs-Bands # (test code = Segs-Bands #) 2.8 1.5-8.1 N [facility] CenterKrmczkzPEXVLQUWXE8519-33-34 10:02:00 Test Item Value Reference Range Interpretation Comments Lymphocytes # (test code = Lymphocytes 1.7 1.0-5.5 N #) [facility] CenterRwnvetjGUREHZQRNI9777-11-11 10:02:00 Test Item Value Reference Range Interpretation Comments Basophils (test code = 0.6 See_Comment N [Aut omated message] The Basophils) system which ge nerated this result tra nsmitted reference range : <=1.0. The reference r leo was not used to int erpret this result as normal/abnormal . [facility] CenterMixhfdaMKWDEPZOQB1317-14-39 10:02:00 Test Item Value Reference Range Interpretation Comments Monocytes (test code = Monocytes) 6.9 2.0-12.0 N [facility] CenterShahkztPQHMBLYFLV3035-41-51 10:02:00 Test Item Value Reference Range Interpretation Comments Eosinophils (test code = 2.0 See_Comment N [A utomated message] The Eosinophils) system which ge nerated this result tra nsmitted reference range : <=4.0. The reference r leo was not used to int erpret this result as normal/abnormal . [facility] CenterPkzizlrURZAGRULGE9419-24-74 10:02:00 Test Item Value Reference Range Interpretation Comments Segs (test code = Segs) 55.8 45.0-75.0 N [facility] CenterJkipbjlWVZRDUFCKB7257-61-24 10:02:00 Test Item Value Reference Range Interpretation Comments Lymphocytes (test code = Lymphocytes) 34.7 20.0-40.0 N [facility] CenterAflyrwpYYRXBPYOMZ7852-79-43 10:02:00 Test Item Value Reference Range Interpretation Comments PTT (test code = PTT) 32.2 s 22.9-35.8 N [facility] CenterUjhznyaCXIKNIXRUS9356-29-82 10:02:00 Test Item Value Reference Range Interpretation Comments PT (test code = PT) 13.3 s 12.0-14.7 N [facility] CenterZamasvhTZXNYMDGBJ4265-84-75 10:02:00 Test Item Value Reference Range Interpretation Comments INR (test code = INR) 1.01 0.85-1.17 N [facility] CenterXbghyaiRLCGTUAINN4798-27-29 10:02:00 Test Item Value Reference Range Interpretation Comments Hct (test code = Hct) 27.5 36.0-48.0 L [facility] CenterSseasrcSYKJZDZNRN6615-85-66 10:02:00 Test Item Value Reference Range Interpretation Comments RBC (test code = RBC) 3.34 4.20-5.40 L [facility] CenterJubozjiXOPQEZMFIS8724-22-94 10:02:00 Test Item Value Reference Range Interpretation Comments Hgb (test code = Hgb) 9.7 12.0-16.0 L [facility] CenterPagztfkGZZLUCNQQY4380-40-17 10:02:00 Test Item Value Reference Range Interpretation Comments WBC (test code = WBC) 5.0 3.7-10.4 N [facility] CenterGyupbpwCJKUPRQTXI5856-95-66 10:02:00 Test Item Value Reference Range Interpretation Comments MPV (test code = MPV) 9.2 7.4-10.4 N [facility] CenterTfwxtanDPRVSXEHFQ8684-58-65 10:02:00 Test Item Value Reference Range Interpretation Comments Platelet (test code = Platelet) 240 133-450 N [facility] CenterMiatezkJGOEDEUTGF3611-90-24 10:02:00 Test Item Value Reference Range Interpretation Comments RDW (test code = RDW) 14.3 11.5-14.5 N [facility] CenterNnqzmhtMEODTCZZDA0253-14-12 10:02:00 Test Item Value Reference Range Interpretation Comments MCHC (test code = MCHC) 35.2 32.0-36.0 N [facility] CenterBholvpgIBKINEDHYV6934-34-51 10:02:00 Test Item Value Reference Range Interpretation Comments MCH (test code = MCH) 28.9 pg 27.0-31.0 N [facility] CenterWjznnolAQBTELCAJT4839-04-48 10:02:00 Test Item Value Reference Range Interpretation Comments MCV (test code = MCV) 82.1 81.0-99.0 N [facility]OxydtrmBUKROSEUN2649-15-46 09:24:00 Test Item Value Reference Range Interpretation Comments Magnesium Lvl (test code = Magnesium 2.1 1.8-2.4 N Lvl) [facility] CenterGrrvzilYmjvobkfvfuq0521-02-59 00:32:00 Test Item Value Reference Range Interpretation Comments Culture: Aspirate/Body Fluid/Tissue (test code = Culture: Aspirate/Body Fluid/Tissue) [facility] CenterOyhuqwjTrfkgbtpyaep5167-55-67 00:32:00 Test Item Value Reference Range Interpretation Comments Culture: Anaerobic (test code = Culture: Anaerobic) [facility] HospitalZyjurhmPSFFSWIYH1936-79-13 17:10:00 Test Item Value Reference Range Interpretation Comments Temp Roberth (test code = Temp Roberth) 37.0 [facility] HospitalNfzflibVZKVOFYIW3817-13-98 17:10:00 Test Item Value Reference Range Interpretation Comments O2 Sat Roberth (test code = O2 Sat Roberth) 27.0 40.0-70.0 L [facility] HospitalQglplonPKCJFGLJL1811-87-34 17:10:00 Test Item Value Reference Range Interpretation Comments pCO2 Roberth (test code = pCO2 Roberth) 47 38-52 N [facility] HospitalPvyvvgrKZKQEXNKF7490-68-42 17:10:00 Test Item Value Reference Range Interpretation Comments pH Roberth (test code = pH Roberth) 7.37 7.28-7.42 N [facility] HospitalRxzjkbiNHNSATMXP5816-53-70 17:10:00 Test Item Value Reference Range Interpretation Comments BE Roberth (test code = 1 See_Comment N [Automa rohit message] The BE Roberth) system which ge nerated this result transmit rohit reference range : <=2. The reference range was not used to interpr et this result as reji l/abnormal. [facility] HospitalDcjqcxjSLFSXNJQG8221-75-44 17:10:00 Test Item Value Reference Range Interpretation Comments HCO3 Roberth (test code = HCO3 Roberth) 27.2 22.0-26.0 H [facility] HospitalVciflmiEOZSYQLBO9849-37-56 17:10:00 Test Item Value Reference Range Interpretation Comments pO2 Roberth (test code = pO2 Roberth) 19 20-49 L [facility] CenterGfdjrsqLzawtanmmdsd3726-90-43 14:18:00 Test Item Value Reference Range Interpretation Comments Culture: Blood (test code = Culture: Blood) [facility] CenterApbctmtMkolwgnlokty2362-81-36 14:18:00 Test Item Value Reference Range Interpretation Comments Culture: Wound/Abscess w/Gram Stain (test code = Culture: Wound/Abscess w/Gram Stain) [facility] HospitalMzbvvlpTUTQIFPDY2008-34-06 13:09:00 Test Item Value Reference Range Interpretation Comments Lactic Acid Lvl (test code = Lactic 1.0 0.5-2.2 N Acid Lvl) [facility] HospitalIfqrgolJVSSWMLBC8852-07-78 12:20:00 Test Item Value Reference Range Interpretation Comments U Preg (test code = U Negative (09/01/2011 N Preg) 07:20:00) [facility]DHQTJQCWIQ5536[facility] 12:20:00 Test Item Value Reference Range Interpretation Comments UA Sq Epi (test code Occasional /LPF N = UA Sq Epi) (09/01/2011 07:20:00) [facility]JbcromoGRVQJECYYJ2823-65-78 12:20:00 Test Item Value Reference Range Interpretation Comments UA Leuk Est (test Negative (09/01/2011 N code = UA Leuk Est) 07:20:00) [facility]PxzlqzaTHXNRHEBUX1161-14-22 12:20:00 Test Item Value Reference Range Interpretation Comments UA Nitrite (test code Negative (09/01/2011 N = UA Nitrite) 07:20:00) [facility]oNnuawxwVFDHWFPTWL5996-89-16 12:20:00 Test Item Value Reference Range Interpretation Comments UA Urobilinogen (test code = UA 0.2 0.1-1.0 N Urobilinogen) [facility]oTrqxvslGDWKMROECH7858-86-48 12:20:00 Test Item Value Reference Range Interpretation Comments UA Blood (test code = Negative (09/01/2011 N UA Blood) 07:20:00) [facility]NwjojkrJNEWAKMKMK6546-36-51 12:20:00 Test Item Value Reference Range Interpretation Comments UA Ketones (test code = >=80 mg/dL A UA Ketones) *ABN*(09/01/2011 07:20:00) [facility]aSnccqmjJOQSWXSGBA0148-98-23 12:20:00 Test Item Value Reference Range Interpretation Comments UA Protein (test code Negative (09/01/2011 N = UA Protein) 07:20:00) [facility]aKxrelclNSRETTSKCQ7230-45-66 12:20:00 Test Item Value Reference Range Interpretation Comments UA pH (test code = UA pH) 6.0 1 5.0-8.0 N [facility]oGfgepxxLEQMXDOCSZ4258-86-52 12:20:00 Test Item Value Reference Range Interpretation Comments UA Bili (test code = Negative (09/01/2011 N UA Bili) 07:20:00) [facility]oZdimrlsLGXUVOLHBJ1282-81-92 12:20:00 Test Item Value Reference Range Interpretation Comments UA Glucose (test code = >=1000 mg/dL A UA Glucose) *ABN*(09/01/2011 07:20:00) [facility]oOfnuxsxENCPWZMHDR7752-70-27 12:20:00 Test Item Value Reference Range Interpretation Comments UA Spec Grav (test code = UA Spec 1.035 1 H Grav) [facility]oTebwkjtERXTHWRVYL7392-05-32 12:20:00 Test Item Value Reference Range Interpretation Comments UA Turbidity (test code = Clear (09/01/2011 N UA Turbidity) 07:20:00) [facility]oXqqbgbhEGSIHVWPVF6526-19-93 12:20:00 Test Item Value Reference Range Interpretation Comments UA Color (test code = Yellow *NA*(09/01/2011 UA Color) 07:20:00) [facility] HospitalKqfndgsBMXZTCEHD3850-31-68 08:00:00 Test Item Value Reference Range Interpretation Comments Lactic Acid Lvl (test code = Lactic 2.8 0.5-2.2 H Acid Lvl) [facility] HospitalOllaskvDGAEZMAGS3078-31-89 07:47:00 Test Item Value Reference Range Interpretation Comments Magnesium Lvl (test code = Magnesium 1.5 1.8-2.4 L Lvl) [facility] CenterXpgaspmZLOFDBDLRA3930-57-05 07:47:00 Test Item Value Reference Range Interpretation Comments Polychrom (test code = Slight (09/01/2011 N Polychrom) 02:47:00) [facility] CenterDfdfgaxAIJTERMPBD4028-19-54 07:47:00 Test Item Value Reference Range Interpretation Comments Anisocyte (test code = 1+ *ABN*(09/01/2011 A Anisocyte) 02:47:00) [facility] CenterJptsdniTVSPAYGSSS1962-24-94 07:47:00 Test Item Value Reference Range Interpretation Comments Large Plt (test code = Slight *ABN*(09/01/2011 A Large Plt) 02:47:00) [facility] CenterTtghqqrLHISXLQSVW0557-14-60 07:47:00 Test Item Value Reference Range Interpretation Comments Tear Cell (test code = Tear Cell) Occasional [facility] CenterTeqeqnxMHYFWBIHAI2283-08-38 07:47:00 Test Item Value Reference Range Interpretation Comments Elliptocyte (test code = Slight A Elliptocyte) *ABN*(09/01/2011 02:47:00) [facility] GLUCOSE EQFCZJL5583-70-66 17:02:00 Test Item Value Reference Range Interpretation Comments Comment1 (test code = Comment1) Notify RN/ [facility] GLUCOSE IIWKXWN0267-06-37 17:02:00 Test Item Value Reference Range Interpretation Comments Gluc POC Lifscn (test code = Gluc POC 134 65-110 H Lifscn) [facility] GLUCOSE QFBYKQH9078-01-35 13:45:00 Test Item Value Reference Range Interpretation Comments Gluc POC Lifscn (test code = Gluc POC 182 65-110 H Lifscn) [facility] GLUCOSE RXCBQPJ6747-02-78 13:45:00 Test Item Value Reference Range Interpretation Comments Comment1 (test code = Comment1) Ravi RN/ [facility] HospitalPinjeuyMLEDKJXTQ1819-48-61 10:22:00 Test Item Value Reference Range Interpretation Comments Phosphorus (test code = Phosphorus) 3.0 2.5-4.5 N [facility] HospitalKnimxduNRMBILFTG6376-21-68 10:22:00 Test Item Value Reference Range Interpretation Comments Magnesium Lvl (test code = Magnesium 1.8 1.8-2.4 N Lvl) [facility] HospitalQedwkwmNLMZHMYWJ0959-42-82 10:22:00 Test Item Value Reference Range Interpretation Comments Chloride Lvl (test code = Chloride Lvl) 107 95-109 N [facility] HospitalLxszasyBIBKLEXOG3589-94-71 10:22:00 Test Item Value Reference Range Interpretation Comments Potassium Lvl (test code = Potassium 3.0 3.5-5.1 A Lvl) [facility] HospitalYleifquULOQNGGMA7797-83-23 10:22:00 Test Item Value Reference Range Interpretation Comments Sodium Lvl (test code = Sodium Lvl) 141 135-145 N [facility] HospitalPzeaqmqHWYMPFRLV1730-91-59 10:22:00 Test Item Value Reference Range Interpretation Comments Creatinine Lvl (test code = Creatinine 0.6 0.5-1.4 N Lvl) [facility] HospitalTbbttxcTCELNQFRP5926-18-90 10:22:00 Test Item Value Reference Range Interpretation Comments CO2 (test code = CO2) 23 24-32 L [facility] HospitalDlmjkrdZSFMOFNPU2766-76-63 10:22:00 Test Item Value Reference Range Interpretation Comments Calcium Lvl (test code = Calcium Lvl) 7.3 8.5-10.5 L [facility] HospitalNbkyfliFURHXXRLI3184-89-79 10:22:00 Test Item Value Reference Range Interpretation Comments Glucose Lvl (test code = Glucose Lvl) 136 [facility] HospitalUkzzlixZNWNHLADE3509-33-87 10:22:00 Test Item Value Reference Range Interpretation Comments AGAP (test code = AGAP) 14.0 10.0-20.0 N [facility] HospitalEyruxffMAQNFGQMS2069-77-24 10:22:00 Test Item Value Reference Range Interpretation Comments BUN (test code = BUN) 5 7-22 L [facility]RdklsrbJUEMKQRSZW1766-06-46 10:22:00 Test Item Value Reference Range Interpretation Comments Segs (test code = Segs) 69.6 45.0-75.0 N [facility] CenterXefcgbuTQQADIHFHZ8768-75-02 10:22:00 Test Item Value Reference Range Interpretation Comments Lymphocytes (test code = Lymphocytes) 21.5 20.0-40.0 N [facility] CenterVbsrbqaPZFDZKEBUR1239-33-11 10:22:00 Test Item Value Reference Range Interpretation Comments Monocytes (test code = Monocytes) 7.6 2.0-12.0 N [facility] CenterOcbdxbbGZOBWRIXGK3725-57-07 10:22:00 Test Item Value Reference Range Interpretation Comments Eosinophils (test code = 1.0 See_Comment N [A utomated message] The Eosinophils) system which ge nerated this result tra nsmitted reference range : <=4.0. The reference r leo was not used to int erpret this result as normal/abnormal . [facility] CenterDfsgtuiDBCNKPPUSW4466-39-53 10:22:00 Test Item Value Reference Range Interpretation Comments Basophils (test code = 0.3 See_Comment N [Aut omated message] The Basophils) system which ge nerated this result tra nsmitted reference range : <=1.0. The reference r leo was not used to int erpret this result as normal/abnormal . [facility] CenterOlwtxpbVEXHRQKNCQ2164-03-05 10:22:00 Test Item Value Reference Range Interpretation Comments Segs-Bands # (test code = Segs-Bands #) 4.8 1.5-8.1 N [facility] CenterKdwtqtaSNBOBXOXTJ3116-76-25 10:22:00 Test Item Value Reference Range Interpretation Comments Eosinophils # (test code 0.1 See_Comment N [A utomated message] The = Eosinophils #) system ic h generated this result tra nsmitted reference range : <=0.5. The reference r leo was not used to int erpret this result as normal/abnormal . [facility] CenterNlfzbnaZGYHQXUQXY0283-39-05 10:22:00 Test Item Value Reference Range Interpretation Comments Lymphocytes # (test code = Lymphocytes 1.5 1.0-5.5 N #) [facility] CenterJpyxjtxEMDBNQBCOH3421-16-71 10:22:00 Test Item Value Reference Range Interpretation Comments Monocytes # (test code 0.5 See_Comment N [Aut omated message] The = Monocytes #) system which generated this result tra nsmitted reference range : <=0.8. The reference r leo was not used to int erpret this result as normal/abnormal . [facility] CenterIdieaxrVJUHPWKREZ3914-23-16 10:22:00 Test Item Value Reference Range Interpretation Comments Basophils # (test code 0.0 See_Comment N [Aut omated message] The = Basophils #) system which generated this result tra nsmitted reference range : <=0.2. The reference r leo was not used to int erpret this result as normal/abnormal . [facility] CenterYgqmkpgKLEGCFQDRZ2690-52-69 10:22:00 Test Item Value Reference Range Interpretation Comments MPV (test code = MPV) 11.0 7.4-10.4 H [facility] CenterCnjmzptRBPVDZMQOB5239-20-71 10:22:00 Test Item Value Reference Range Interpretation Comments Platelet (test code = Platelet) 161 133-450 N [facility] CenterDapwzaiAADKCZBZCU4385-85-79 10:22:00 Test Item Value Reference Range Interpretation Comments MCH (test code = MCH) 29.6 pg 27.0-31.0 N [facility] CenterUvnephaKDHXMXYTXK2211-04-93 10:22:00 Test Item Value Reference Range Interpretation Comments MCHC (test code = MCHC) 35.4 32.0-36.0 N [facility] CenterOhrivbhYWAEAQFGIT3743-54-23 10:22:00 Test Item Value Reference Range Interpretation Comments RDW (test code = RDW) 14.1 11.5-14.5 N [facility] CenterCwfxmdxIPFUEJIWCX7928-07-51 10:22:00 Test Item Value Reference Range Interpretation Comments WBC (test code = WBC) 6.8 3.7-10.4 N [facility] CenterFkoyjuvMYJLKPBFPK3993-13-05 10:22:00 Test Item Value Reference Range Interpretation Comments MCV (test code = MCV) 83.5 81.0-99.0 N [facility] CenterHqszcgqJIVPPDATNT3445-39-69 10:22:00 Test Item Value Reference Range Interpretation Comments RBC (test code = RBC) 4.44 4.20-5.40 N [facility] CenterMcfqqgkPWBBJYRKNS9324-47-04 10:22:00 Test Item Value Reference Range Interpretation Comments Hgb (test code = Hgb) 13.1 12.0-16.0 N [facility] CenterEbooymuSBKRLVBWCG9045-09-97 10:22:00 Test Item Value Reference Range Interpretation Comments Hct (test code = Hct) 37.1 36.0-48.0 N [facility] GLUCOSE EVRUWFJ1263-75-04 02:20:00 Test Item Value Reference Range Interpretation Comments Comment1 (test code = Comment1) Ravi RN/MD [facility] GLUCOSE PEIPZVL1469-18-75 02:20:00 Test Item Value Reference Range Interpretation Comments Gluc POC Lifscn (test code = Gluc POC 332 65-110 H Lifscn) [facility] HospitalIqtrqdeIABTCZQSH5489-11-77 09:47:00 Test Item Value Reference Range Interpretation Comments Phosphorus (test code = Phosphorus) 2.5 2.5-4.5 N [facility] HospitalBchhmawFJDAGSXHD9260-63-59 09:47:00 Test Item Value Reference Range Interpretation Comments Glucose Lvl (test code = Glucose Lvl) 201 [facility] HospitalVfxopuyILGWJMOPY6960-87-44 09:47:00 Test Item Value Reference Range Interpretation Comments BUN (test code = BUN) 7 7-22 N [facility] HospitalOwbekqjDJGUNXRIR0328-26-33 09:47:00 Test Item Value Reference Range Interpretation Comments CO2 (test code = CO2) 19 24-32 L [facility] HospitalPghssclMACPZIZKV3651-29-97 09:47:00 Test Item Value Reference Range Interpretation Comments Creatinine Lvl (test code = Creatinine 0.3 0.5-1.4 L Lvl) [facility] HospitalDfceumuKARGTDDOB5674-49-51 09:47:00 Test Item Value Reference Range Interpretation Comments Sodium Lvl (test code = Sodium Lvl) 137 135-145 N [facility] HospitalLkxwcqhYJHCPPMWI5950-20-12 09:47:00 Test Item Value Reference Range Interpretation Comments Chloride Lvl (test code = Chloride Lvl) 103 95-109 N [facility] HospitalFvnyouvPSEGMSAJG3884-62-60 09:47:00 Test Item Value Reference Range Interpretation Comments Potassium Lvl (test code = Potassium 3.6 3.5-5.1 N Lvl) [facility] HospitalQeiinifXRIURTPOZ7708-57-41 09:47:00 Test Item Value Reference Range Interpretation Comments Calcium Lvl (test code = Calcium Lvl) 7.9 8.5-10.5 L [facility] HospitalNodlpmiBEQUQXTFP3573-22-47 09:47:00 Test Item Value Reference Range Interpretation Comments AGAP (test code = AGAP) 18.6 10.0-20.0 N [facility] HospitalNynpeymLYPGHGQMP0872-10-33 09:47:00 Test Item Value Reference Range Interpretation Comments Magnesium Lvl (test code = Magnesium 1.6 1.8-2.4 L Lvl) [facility] CenterYrnoadaCFJLGQDKGI7431-78-03 09:47:00 Test Item Value Reference Range Interpretation Comments Basophils # (test code 0.0 See_Comment N [Aut omated message] The = Basophils #) system which generated this result tra nsmitted reference range : <=0.2. The reference r loe was not used to int erpret this result as normal/abnormal . [facility] CenterIjdfgffODVUSGHSAU1723-30-74 09:47:00 Test Item Value Reference Range Interpretation Comments Eosinophils (test code = 0.4 See_Comment N [A utomated message] The Eosinophils) system which ge nerated this result tra nsmitted reference range : <=4.0. The reference r leo was not used to int erpret this result as normal/abnormal . [facility] CenterQhouggpBBEQEIAXZL1318-86-89 09:47:00 Test Item Value Reference Range Interpretation Comments Basophils (test code = 0.5 See_Comment N [Aut omated message] The Basophils) system which ge nerated this result tra nsmitted reference range : <=1.0. The reference r leo was not used to int erpret this result as normal/abnormal . [facility] CenterXbzdnyfVMXNZZRWMA5498-59-88 09:47:00 Test Item Value Reference Range Interpretation Comments Segs-Bands # (test code = Segs-Bands #) 5.9 1.5-8.1 N [facility] CenterTxeazofKDKJWGGZTH3806-21-86 09:47:00 Test Item Value Reference Range Interpretation Comments Lymphocytes # (test code = Lymphocytes 1.2 1.0-5.5 N #) [facility] CenterMaohapvSCPIZNJNMR1553-78-37 09:47:00 Test Item Value Reference Range Interpretation Comments Monocytes # (test code 0.5 See_Comment N [Aut omated message] The = Monocytes #) system which generated this result tra nsmitted reference range : <=0.8. The reference r leo was not used to int erpret this result as normal/abnormal . [facility] CenterIocpntkFRRQNZARKU1928-18-07 09:47:00 Test Item Value Reference Range Interpretation Comments Eosinophils # (test code 0.0 See_Comment N [A utomated message] The = Eosinophils #) system ic h generated this result tra nsmitted reference range : <=0.5. The reference r leo was not used to int erpret this result as normal/abnormal . [facility] CenterSwbawooFVGQVFYBXZ3055-71-35 09:47:00 Test Item Value Reference Range Interpretation Comments Segs (test code = Segs) 76.9 45.0-75.0 H [facility] CenterGmmoqbyAXLPYGOJIA6120-81-93 09:47:00 Test Item Value Reference Range Interpretation Comments Lymphocytes (test code = Lymphocytes) 15.9 20.0-40.0 L [facility] CenterWokoldpSXXYJBXFGK3588-39-12 09:47:00 Test Item Value Reference Range Interpretation Comments Monocytes (test code = Monocytes) 6.3 2.0-12.0 N [facility] CenterQaxgohoSITLYHIMOS4936-23-36 09:47:00 Test Item Value Reference Range Interpretation Comments MCV (test code = MCV) 82.8 81.0-99.0 N [facility] CenterHjoldsqITHWBHLCVP8701-14-67 09:47:00 Test Item Value Reference Range Interpretation Comments Hct (test code = Hct) 39.7 36.0-48.0 N [facility] CenterYveibygNHTQFGYPYV6022-62-96 09:47:00 Test Item Value Reference Range Interpretation Comments MCH (test code = MCH) 29.1 pg 27.0-31.0 N [facility] CenterRsjnsacVZQLUJLFWI9696-81-87 09:47:00 Test Item Value Reference Range Interpretation Comments Hgb (test code = Hgb) 14.0 12.0-16.0 N [facility] CenterLntubspRTJWEYYGZQ1687-98-60 09:47:00 Test Item Value Reference Range Interpretation Comments MCHC (test code = MCHC) 35.2 32.0-36.0 N [facility] CenterKhofuubEUEPYNEGAZ3641-98-09 09:47:00 Test Item Value Reference Range Interpretation Comments RDW (test code = RDW) 13.9 11.5-14.5 N [facility] CenterEnrkxwqVINLWVUEGI6529-16-67 09:47:00 Test Item Value Reference Range Interpretation Comments Platelet (test code = Platelet) 160 133-450 N [facility] CenterYkjiwcwQOFFNUGBYD2376-89-97 09:47:00 Test Item Value Reference Range Interpretation Comments MPV (test code = MPV) 11.9 7.4-10.4 H [facility] CenterUhleyebYDCWZFEQSP7550-22-77 09:47:00 Test Item Value Reference Range Interpretation Comments WBC (test code = WBC) 7.7 3.7-10.4 N [facility] CenterFtpmcqxSVTGWTHVYC8733-69-84 09:47:00 Test Item Value Reference Range Interpretation Comments RBC (test code = RBC) 4.80 4.20-5.40 N [facility] HospitalSaxlardTUGKQFKLM6190-82-63 10:28:00 Test Item Value Reference Range Interpretation Comments Phosphorus (test code = Phosphorus) 2.6 2.5-4.5 N [facility] HospitalRuxtylxUJXRFGXTS4655-70-50 10:28:00 Test Item Value Reference Range Interpretation Comments Magnesium Lvl (test code = Magnesium 1.8 1.8-2.4 N Lvl) [facility] HospitalChnxhkoCBLHRZVJL2499-45-76 10:28:00 Test Item Value Reference Range Interpretation Comments Potassium Lvl (test code = Potassium 3.7 3.5-5.1 N Lvl) [facility] HospitalVcmozinYQGTVBELO6487-40-24 10:28:00 Test Item Value Reference Range Interpretation Comments Sodium Lvl (test code = Sodium Lvl) 137 135-145 N [facility] HospitalIhyqgraGTXXNHRKK5720-74-76 10:28:00 Test Item Value Reference Range Interpretation Comments Creatinine Lvl (test code = Creatinine 0.6 0.5-1.4 N Lvl) [facility] HospitalLpfoqhvDCGJPBCJQ8705-63-01 10:28:00 Test Item Value Reference Range Interpretation Comments BUN (test code = BUN) 16 7-22 N [facility] HospitalWcuvrooAMOHQJYPZ9935-46-31 10:28:00 Test Item Value Reference Range Interpretation Comments Glucose Lvl (test code = Glucose Lvl) 200 [facility] HospitalDhlmrvyDIUSOKAAN4497-33-88 10:28:00 Test Item Value Reference Range Interpretation Comments Calcium Lvl (test code = Calcium Lvl) 8.3 8.5-10.5 L [facility] HospitalUxgxyrwRDVKNRLSH6050-02-87 10:28:00 Test Item Value Reference Range Interpretation Comments AGAP (test code = AGAP) 19.7 10.0-20.0 N [facility] HospitalLmeroioRPJBGPFEY0482-07-97 10:28:00 Test Item Value Reference Range Interpretation Comments Chloride Lvl (test code = Chloride Lvl) 99 95-109 N [facility] HospitalZxqiaizOACVEHVGM5297-96-94 10:28:00 Test Item Value Reference Range Interpretation Comments CO2 (test code = CO2) 22 24-32 L [facility] CenterKilxuukLAUGGUWPPP7457-49-39 10:28:00 Test Item Value Reference Range Interpretation Comments Platelet (test code = Platelet) 172 133-450 N [facility] CenterTfgvafxTELYDYXXZT8036-59-63 10:28:00 Test Item Value Reference Range Interpretation Comments MPV (test code = MPV) 12.0 7.4-10.4 H [facility] CenterRzgoenzIIEUFAQKZQ2052-87-43 10:28:00 Test Item Value Reference Range Interpretation Comments WBC (test code = WBC) 7.3 3.7-10.4 N [facility] CenterTizuupcQMJJQDPRPW3334-12-26 10:28:00 Test Item Value Reference Range Interpretation Comments RDW (test code = RDW) 14.6 11.5-14.5 H [facility] CenterCkqjsssTQNCWDJHPW4270-50-53 10:28:00 Test Item Value Reference Range Interpretation Comments MCHC (test code = MCHC) 35.0 32.0-36.0 N [facility] CenterPggamdmXQOQGGHQRR5393-05-29 10:28:00 Test Item Value Reference Range Interpretation Comments RBC (test code = RBC) 4.54 4.20-5.40 N [facility] CenterAlepuwaJZXFDIQDZN5984-85-71 10:28:00 Test Item Value Reference Range Interpretation Comments Hct (test code = Hct) 37.6 36.0-48.0 N [facility] [id number] 10:28:00 Test Item Value Reference Range Interpretation Comments MCV (test code = MCV) 82.9 81.0-99.0 N [facility] CenterKhcbrlvYJSGGZVQFC6965-20-21 10:28:00 Test Item Value Reference Range Interpretation Comments MCH (test code = MCH) 29.0 pg 27.0-31.0 N [facility] CenterNgmefrpQXIGUBBMRL3546-37-62 10:28:00 Test Item Value Reference Range Interpretation Comments Hgb (test code = Hgb) 13.2 12.0-16.0 N [facility] CenterJatmtviHDYOWSLGIK1675-60-71 10:28:00 Test Item Value Reference Range Interpretation Comments Elliptocyte (test code = Slight A Elliptocyte) *ABN*(08/21/2011 04:28:00) [facility] CenterVcjcsqzSYWHYMJPKI6502-90-48 10:28:00 Test Item Value Reference Range Interpretation Comments Polychrom (test code = Slight (08/21/2011 N Polychrom) 04:28:00) [facility] CenterXmcueylTAWMQMJXHM5003-41-44 10:28:00 Test Item Value Reference Range Interpretation Comments Basophils # (test code 0.0 See_Comment N [Aut omated message] The = Basophils #) system which generated this result tra nsmitted reference range : <=0.2. The reference r leo was not used to int erpret this result as normal/abnormal . [facility] CenterGsoeknvWVKTQYOMGJ6456-72-05 10:28:00 Test Item Value Reference Range Interpretation Comments Hypochrom (test code = Slight (08/21/2011 N Hypochrom) 04:28:00) [facility] CenterDvsfjvfINRVLYZAEY3709-36-62 10:28:00 Test Item Value Reference Range Interpretation Comments Monocytes # (test code 0.6 See_Comment N [Aut omated message] The = Monocytes #) system which generated this result tra nsmitted reference range : <=0.8. The reference r leo was not used to int erpret this result as normal/abnormal . [facility] CenterKtewgvkYWHHBBSRGK0137-10-09 10:28:00 Test Item Value Reference Range Interpretation Comments Eosinophils # (test code 0.0 See_Comment N [A utomated message] The = Eosinophils #) system whic h generated this result tra nsmitted reference range : <=0.5. The reference r leo was not used to int erpret this result as normal/abnormal . [facility] CenterHcgvupyFBWPQDOYVH9452-17-52 10:28:00 Test Item Value Reference Range Interpretation Comments Segs-Bands # (test code = Segs-Bands #) 5.3 1.5-8.1 N [facility] CenterWtrhotaDLWMNEXDFA2399-28-79 10:28:00 Test Item Value Reference Range Interpretation Comments Lymphocytes # (test code = Lymphocytes 1.3 1.0-5.5 N #) [facility] CenterZsaxgdoGJMANQWTNF8207-91-56 10:28:00 Test Item Value Reference Range Interpretation Comments Basophils (test code = 0.5 See_Comment N [Aut omated message] The Basophils) system which ge nerated this result tra nsmitted reference range : <=1.0. The reference r leo was not used to int erpret this result as normal/abnormal . [facility] CenterQypxdzxSCNPHPPHDH1639-02-67 10:28:00 Test Item Value Reference Range Interpretation Comments Monocytes (test code = Monocytes) 8.5 2.0-12.0 N [facility] CenterDdphdcwYFNEFPVZQX3372-64-51 10:28:00 Test Item Value Reference Range Interpretation Comments Eosinophils (test code = 0.3 See_Comment N [A utomated message] The Eosinophils) system which ge nerated this result tra nsmitted reference range : <=4.0. The reference r leo was not used to int erpret this result as normal/abnormal . [facility] CenterSlmatubHIGHDHHBCI6969-79-52 10:28:00 Test Item Value Reference Range Interpretation Comments Lymphocytes (test code = Lymphocytes) 17.3 20.0-40.0 L [facility] CenterTctagpaJHNEHXHQWW5337-58-08 10:28:00 Test Item Value Reference Range Interpretation Comments Segs (test code = Segs) 73.4 45.0-75.0 N [facility] GLUCOSE SGBEQNR3325-95-23 07:47:00 Test Item Value Reference Range Interpretation Comments Comment2 (test code = Comment2) [facility]WauiyavQMOQROOHC6290-13-03 21:58:00 Test Item Value Reference Range Interpretation Comments S Preg (test code = S Negative (08/19/2011 N Preg) 15:58:00) [facility] HospitalTqeshuxXBGXUEMBX0865-28-69 21:58:00 Test Item Value Reference Range Interpretation Comments Lipase Lvl (test code = Lipase Lvl) 169 73-393 N [facility] HospitalClfrkszBTAJNLDKF9304-83-66 21:58:00 Test Item Value Reference Range Interpretation Comments ALT (test code = ALT) 54 See_Comment N [Auto mated message] The system which ge nerated this result transmit rohit reference range : <=65. The reference range was not used to interpr et this result as reji l/abnormal. [facility] HospitalPhcnlvbBVBVVLTMT0284-06-12 21:58:00 Test Item Value Reference Range Interpretation Comments Alk Phos (test code = Alk Phos) 110 39-136 N [facility] HospitalRybhtjiYRJXDVQGJ7809-45-06 21:58:00 Test Item Value Reference Range Interpretation Comments Bili Direct (test code 0.1 See_Comment N [Aut omated message] The = Bili Direct) system which generated this result tra nsmitted reference range : <=0.3. The reference r leo was not used to int erpret this result as reji l/abnormal. [facility] HospitalAjkhygjWZKTOERAZ1979-28-74 21:58:00 Test Item Value Reference Range Interpretation Comments Bili Total (test code = Bili Total) 0.9 0.2-1.3 N [facility] HospitalVqtnswrHUPCWJEAH5108-30-25 21:58:00 Test Item Value Reference Range Interpretation Comments Albumin Lvl (test code = Albumin Lvl) 4.4 3.5-5.0 N [facility] HospitalToumudcXLOHTIGDN0291-52-32 21:58:00 Test Item Value Reference Range Interpretation Comments Total Protein (test code = Total 8.8 6.4-8.4 H Protein) [facility] HospitalCkbjojrHCMESKCMU8995-73-67 21:58:00 Test Item Value Reference Range Interpretation Comments Bili Indirect (test 0.8 See_Comment N [Automa rohit message] The code = Bili Indirect) system which generated this result tra nsmitted reference range : <=1.0. The reference r leo was not used to int erpret this result as normal/abnormal . [facility] HospitalEqayuejECYUECNCY6524-80-11 21:58:00 Test Item Value Reference Range Interpretation Comments AST (test code = AST) 36 See_Comment N [Auto mated message] The system which ge nerated this result transmit rohit reference range : <=37. The reference range was not used to interpr et this result as reji l/abnormal. [facility] HospitalErkxgyyUFHIJQZXF6596-69-13 21:58:00 Test Item Value Reference Range Interpretation Comments Globulin (test code = Globulin) 4.4 2.0-4.0 H [facility] HospitalUokjjfeQCWWKOCIB9129-58-01 21:58:00 Test Item Value Reference Range Interpretation Comments A/G Ratio (test code = A/G Ratio) 1.0 0.7-1.6 N [facility]UhxaozeWUGAFSDPYX2737-04-02 21:58:00 Test Item Value Reference Range Interpretation Comments UA Bacteria (test code Occasional /HPF N = UA Bacteria) (08/19/2011 15:58:00) [facility]aHfcwhffOKKVUBYIKD6006-88-11 21:58:00 Test Item Value Reference Range Interpretation Comments UA RBC (test 3-5 /HPF See_Comment A [Automated mes pastor] code = UA RBC) *ABN*(08/19/2011 The syste m which 15:58:00) generated this result transmitted ref erence range: <=2. The reference range was not used to int erpret this result as normal/abnormal . [facility]JtltwqzBQNEOKDKVA4792-12-68 21:58:00 Test Item Value Reference Range Interpretation Comments UA WBC (test code = 3 See_Comment [Automa rohit message] The UA WBC) system which ge nerated this result transmit rohit reference range : <=5. The reference range was not used to interpr et this result as reji l/abnormal. [facility]oVvkhqqgWJRGNKDQWM0345-21-52 21:58:00 Test Item Value Reference Range Interpretation Comments UA Mucus (test code = Few /LPF (08/19/2011 N UA Mucus) 15:58:00) [facility]oBfcjfueAPGBMMJEZM5416-28-41 21:58:00 Test Item Value Reference Range Interpretation Comments UA Amorph Destiny (test Occasional /HPF A code = UA Amorph *ABN*(08/19/2011 Destiny) 15:58:00) [facility]HjmyfhhDHDOWQORMK4414-31-69 21:58:00 Test Item Value Reference Range Interpretation Comments UA Urobilinogen (test code = UA 0.2 0.1-1.0 N Urobilinogen) [facility]oHwmxnirIOEVWDIBLE3690-61-05 21:58:00 Test Item Value Reference Range Interpretation Comments UA Sq Epi (test code = Rare /LPF (08/19/2011 N UA Sq Epi) 15:58:00) [facility] CenterExdosniMKGYLBWJXP5758-00-11 21:58:00 Test Item Value Reference Range Interpretation Comments Micro? (test code = Performed (08/19/2011 N Micro?) 15:58:00) [facility]oVpasclpQMEUMUXTNL4221-38-48 21:58:00 Test Item Value Reference Range Interpretation Comments UA Leuk Est (test Negative (08/19/2011 N code = UA Leuk Est) 15:58:00) [facility]oXpjuyebOFVQIHJMVP6745-04-04 21:58:00 Test Item Value Reference Range Interpretation Comments UA Nitrite (test code Negative (08/19/2011 N = UA Nitrite) 15:58:00) [facility] CenterMmhgnacCLWWOIDPUG7489-59-33 21:58:00 Test Item Value Reference Range Interpretation Comments UA pH (test code = UA pH) 5.5 1 5.0-8.0 N [facility]oZycanthHHXDLZHTNV7871-96-57 21:58:00 Test Item Value Reference Range Interpretation Comments UA Blood (test code = Trace *ABN*(08/19/2011 A UA Blood) 15:58:00) [facility] CenterYwdgapjHLMDSLEQAR1962-56-07 21:58:00 Test Item Value Reference Range Interpretation Comments UA Bili (test code = Negative (08/19/2011 N UA Bili) 15:58:00) [facility]oOsjbaqqFQUTXTFJBB3625-20-41 21:58:00 Test Item Value Reference Range Interpretation Comments UA Ketones (test code = 80 mg/dL A UA Ketones) *ABN*(08/19/2011 15:58:00) [facility]oKhyrmtdREYWJIKRQX4302-20-87 21:58:00 Test Item Value Reference Range Interpretation Comments UA Glucose (test code = >=1000 mg/dL A UA Glucose) *ABN*(08/19/2011 15:58:00) [facility] CenterKcwvosfDSVYALIPBM2346-66-05 21:58:00 Test Item Value Reference Range Interpretation Comments UA Protein (test code Negative (08/19/2011 N = UA Protein) 15:58:00) [facility]oGngjovvBKABRUSCQA0792-23-90 21:58:00 Test Item Value Reference Range Interpretation Comments UA Turbidity (test code Slight Cloudy N = UA Turbidity) (08/19/2011 15:58:00) [facility] CenterUyqpqrnROIWWCPTAR1636-44-52 21:58:00 Test Item Value Reference Range Interpretation Comments UA Spec Grav (test code = UA Spec 1.025 1 Grav) [facility] CenterHirumudPQMQSWGUZJ9378-00-46 21:58:00 Test Item Value Reference Range Interpretation Comments UA Color (test code = Yellow (08/19/2011 N UA Color) 15:58:00) [facility] CenterNwpgzpyTTVWQBUAW3116-48-98 21:13:00 Test Item Value Reference Range Interpretation Comments AST (test code = AST) 23 See_Comment N [Auto mated message] The system which ge nerated this result transmit rohit reference range : <=37. The reference range was not used to interpr et this result as reji l/abnormal. [facility] HospitalMeffvqvBFFLWWUSG5505-53-90 21:13:00 Test Item Value Reference Range Interpretation Comments Bili Total (test code = Bili Total) 1.0 0.2-1.3 N [facility] HospitalVekiqatVCEQYRGVN4223-38-62 21:13:00 Test Item Value Reference Range Interpretation Comments Alk Phos (test code = Alk Phos) 115 39-136 N [facility] HospitalOggbfocOQFZNQZJZ9955-39-02 21:13:00 Test Item Value Reference Range Interpretation Comments ALT (test code = ALT) 56 See_Comment N [Auto mated message] The system which ge nerated this result transmit rohit reference range : <=65. The reference range was not used to interpr et this result as reji l/abnormal. [facility] HospitalObhsmazPLOQNQPVO0950-81-56 21:13:00 Test Item Value Reference Range Interpretation Comments Total Protein (test code = Total 9.0 6.4-8.4 H Protein) [facility] HospitalPooxvthVFYWLPEFU5925-33-76 21:13:00 Test Item Value Reference Range Interpretation Comments Albumin Lvl (test code = Albumin Lvl) 4.8 3.5-5.0 N [facility] HospitalEdicxkzUISBHEOIZ2619-02-60 21:13:00 Test Item Value Reference Range Interpretation Comments Globulin (test code = Globulin) 4.2 2.0-4.0 H [facility] HospitalFrtmstpKFNENPDLS1145-10-77 21:13:00 Test Item Value Reference Range Interpretation Comments A/G Ratio (test code = A/G Ratio) 1.1 0.7-1.6 N [facility] HospitalHcamxiqCJVTOVBHV7047-52-11 21:13:00 Test Item Value Reference Range Interpretation Comments B/C Ratio (test code = B/C Ratio) 30 6-25 H [facility] CenterRovdzwgNOCBKTLHJT6512-84-50 21:13:00 Test Item Value Reference Range Interpretation Comments RBC Morph (test code = Normal (08/19/2011 N RBC Morph) 15:13:00) [facility] CenterDiwrhxdOPWNTPIJAG3360-67-44 21:13:00 Test Item Value Reference Range Interpretation Comments Large Plt (test code = Slight *ABN*(08/19/2011 A Large Plt) 15:13:00) [facility] CenterErumtzpCHYAVILQDR6176-02-82 21:13:00 Test Item Value Reference Range Interpretation Comments Atypical Lymphs (test code = Atypical 0.0 N Lymphs) [facility] CenterRzpsqzxLEPEGUQWPJ4717-30-21 21:13:00 Test Item Value Reference Range Interpretation Comments Bands (test code = 0.0 See_Comment N [Automat ed message] The Bands) system which ge nerated this result transmit rohit reference range : <=11.0. The reference r leo was not used to interpr et this result as reji l/abnormal. [facility] HospitalSmpdlxkZAXCRGIBO3478-12-52 21:10:00 Test Item Value Reference Range Interpretation Comments O2 Sat Roberth (test code = O2 Sat Roberth) 74.0 40.0-70.0 H [facility] HospitalFibfcoeKPTGNGHIP7321-74-59 21:10:00 Test Item Value Reference Range Interpretation Comments Temp Roberth (test code = Temp Roberth) 37.0 [facility] HospitalKrtxrfcWOEUOOYNT4779-61-67 21:10:00 Test Item Value Reference Range Interpretation Comments pO2 Roberth (test code = pO2 Roberth) 42 20-49 N [facility] HospitalTotromjEUHCZRUBL2442-09-94 21:10:00 Test Item Value Reference Range Interpretation Comments HCO3 Roberth (test code = HCO3 Roberth) 17.3 22.0-26.0 L [facility] HospitalVwhnugnQMEUTXCRM8211-64-30 21:10:00 Test Item Value Reference Range Interpretation Comments pH Roberth (test code = pH Roberth) 7.34 7.28-7.42 N [facility] HospitalUlhzrogTRLILRUDH8249-08-36 21:10:00 Test Item Value Reference Range Interpretation Comments pCO2 Roberth (test code = pCO2 Roberth) 32 38-52 L [facility] HospitalRnjqgepRZQCNFEHN9217-71-55 21:10:00 Test Item Value Reference Range Interpretation Comments BE Roberth (test code = -7 See_Comment L [Automa rohit message] The BE Roberth) system which ge nerated this result transmit rohit reference range : <=2. The reference range was not used to interpr et this result as reji l/abnormal. [facility] CenterDfohauxSNIAZZUNXA1529-22-20 20:34:00 Test Item Value Reference Range Interpretation Comments CDC-HIV 1/2 Ab (test Negative *NA*(08/19/2011 code = CDC-HIV 1/2 14:34:00) Ab) [facility]
[2021-06-30] MEDS ORDERED: ACETAMINOPHEN 500 MG TAB ONE (21:09)
[2021-06-30] MEDS ORDERED: MEPERIDINE HCL 50 MG/ML ONE (21:59)
[2021-06-30] MEDS ORDERED: METOCLOPRAMIDE 10 MG/2mL INJ ONE (22:00)
[2021-06-30 23:17] LABS: Absolute Lymphocytes (CBC) 1.1 K/uL (0.7-4.9); Hematocrit 26.1 % (36.0-45.0); Lymphocytes % 24.6 % (15.3-44.8); MPV 10.6 fL (7.6-11.3); RBC Red Blood Cell Count 2.87 M/uL (3.86-4.86)
[2021-06-30 23:58] LABS: Albumin 2.9 g/dL (3.4-5.0); Bilirubin Direct 0.2 mg/dL (0-0.2); Bilirubin Total 0.4 mg/dL (0.2-1.0); Protein, Total 6.5 g/dL (6.4-8.2)
[2021-06-30 23:59] LABS: Potassium 6.2 mmol/L (3.5-5.1)
[2021-07-01] MEDS ORDERED: D50W 25 GM/50 ML SYRINGE IV ONE (00:16)
[2021-07-01] MEDS ORDERED: ALBUTEROL 2.5 MG/3 ML NEB SOL ONE (00:16)
[2021-07-01 00:17] LABS: SARS-COV-2 RT PCR POSITIVE (NEGATIVE)
[2021-07-01] MEDS ORDERED: INSULIN -REGULAR HUMAN 50 UNIT/0.5 ML ML ONE (00:18)
[2021-07-01] MEDS ORDERED: CALCIUM GLUCONATE 1 GM IVPB 1 GM/50 ML BAG IV ONE (00:18)
[2021-07-01] MEDS ORDERED: SOD POLYSTYREN SUL 15 GM/60 ML UCUP ONE (00:18)
--- NOTE | 2021-07-01 00:20 | ER ---
Nurse's Notes [facility] Name: Cathi Zaldivar Age: 40 yrs Sex: Female : 1980 Arrival Date: 06/30/2021 Time: 16:50 Bed 19 Private MD: Diagnosis: Coronavirus infection, unspecified;End stage renal disease;Hyperkalemia Presentation: 06/30 17:14 Chief complaint: Patient states: Abd pain with N/V since 7 am. + fever. Coronavirus ll1 screen: Vaccine status: Patient reports being unvaccinated. Client denies travel out of the [place] in the last 14 days. cough unrelated to allergies, difficulty breathing, fatigue, fever, headache, nausea, vomiting. Client presents with at least one sign or symptom that may indicate coronavirus-19. Standard/surgical mask placed on the client. Ebola Screen: Patient denies travel to an Ebola-affected area in the 21 days before illness onset. Initial Sepsis Screen: Does the patient meet any 2 criteria? RR > 20 per min. Temp <36.0*C (96.8*F)) or > 38.3*C (100.9*F). HR > 90 bpm. Does the patient have a suspected source of infection? Yes: Acute abdominal pain. Risk Assessment: Do you want to hurt yourself or someone else? Patient reports no desire to harm self or others. Onset of symptoms was June 30, 2021. 17:14 Method Of Arrival: Wheelchair ll1 17:14 Acuity: JESSICA 3 ll1 Triage Assessment: 17:18 General: Appears uncomfortable, ill, Behavior is cooperative, appropriate for age. ll1 Pain: Complains of pain in abd. GI: Abdomen is round Reports lower abdominal pain, upper abdominal pain, cramping, nausea. Historical: - Allergies: 17:17 ambien; ll1 17:17 Codeine; ll1 17:17 GUAIFENESIN; ll1 17:17 Ibuprofen; ll1 17:17 Lisinopril; ll1 17:17 Morphine; ll1 17:17 Nitrofurantoin Macrocrystal; ll1 17:17 PENICILLINS; ll1 17:17 Prolixin; ll1 17:17 zolpidem tartrate; ll1 - PMHx: 17:17 "mental problems"; CHF; chronic kidney disease; covid 19; cyclic vomiting syndrome; ll1 Diabetes - NIDDM; Dialysis; m-w-f; ENCEPHALOPATHY; Gastroparesis; HD-TTHSat; Hypertension; ibs; liver failure; PERIPHERAL NEUROPATHY; pseudo aneurysm R groin; Seizures; - PSHx: 17:17 section; dialysis catheter R chest wall; eye removed; ll1 - Immunization history:: Client reports having NOT received the Covid vaccine. Flu vaccine is up to date. - Social history:: Smoking status: Patient reports the use of cigarette tobacco products, smokes one-half pack cigarettes per day. Screenin/11 01:56 Abuse screen: Denies threats or abuse. Nutritional screening: No deficits noted. mk Tuberculosis screening: No symptoms or risk factors identified. Fall Risk No fall in past 12 months (0 pts). No secondary diagnosis (0 pts). IV access (20 points). Ambulatory Aid- None/Bed Rest/Nurse Assist (0 pts). Gait- Weak (10 pts.). Mental Status- Oriented to own ability (0 pts). Total Rios Fall Scale indicates Low Risk Score (25-44 pts). Fall prevention measures have been instituted. Side Rails Up X 2 Placed close to Nursing Station Frequent Obs/Assesments occuring. Assessment: 06/30 21:30 Pain: Complains of pain in abdomen Pain currently is 10 out of 10 on a pain scale. mk Quality of pain is described as sharp, Pain began gradually, 2-3 days ago. Is continuous, Aggravated by vomiting. Neuro: Level of Consciousness is awake, alert, obeys commands. Cardiovascular: Heart tones S1 S2 present Capillary refill < 3 seconds fingers toes Pulses are 2+ in right radial artery, right dorsalis pedis artery, left radial artery and left dorsalis pedis artery Rhythm is sinus rhythm. Respiratory: Airway is patent Trachea midline Respiratory effort is even, unlabored, Respiratory pattern is regular, symmetrical, Breath sounds are clear. GI: Abdomen is flat, non-distended, Bowel sounds present X 4 quads. Abd is soft and non tender X 4 quads. Abd is non tender Reports nausea, Pain is 9 out of 10 on a pain scale. vomiting. GI: Bowel sounds. : No signs and/or symptoms were reported regarding the genitourinary system. Derm: Skin is intact, is healthy with good turgor, Skin is dry, Skin temperature is warm Wound noted L upper thigh Wound is wound vacuum in place, no drainage, redness, edema. Musculoskeletal: Range of motion: intact in all extremities. 21:30 General: Appears distressed, uncomfortable, Behavior is crying. mk 22:23 Reassessment: Pt became slightly hypoxic after receiving medications, placed on O2, GCS mk 14, monitoring closely. 23:30 Reassessment: Patient and/or family updated on plan of care and expected duration. Pain mk level reassessed. Patient is alert, oriented x 3, equal unlabored respirations, skin warm/dry/pink. no longer as lethargic, tolerating RA with desaturation. 07/01 00:30 Reassessment: No changes from previously documented assessment. Patient and/or family mk updated on plan of care and expected duration. Pain level reassessed. Patient is alert, oriented x 3, equal unlabored respirations, skin warm/dry/pink. 01:30 Reassessment: No changes from previously documented assessment. Patient and/or family mk updated on plan of care and expected duration. Pain level reassessed. Patient is alert, oriented x 3, equal unlabored respirations, skin warm/dry/pink. 02:30 Reassessment: No changes from previously documented assessment. Patient and/or family mk updated on plan of care and expected duration. Pain level reassessed. Patient is alert, oriented x 3, equal unlabored respirations, skin warm/dry/pink. 03:47 Reassessment: No changes from previously documented assessment. Patient and/or family mk updated on plan of care and expected duration. Pain level reassessed. Patient is alert, oriented x 3, equal unlabored respirations, skin warm/dry/pink. 04:40 Reassessment: No changes from previously documented assessment. Patient and/or family mk updated on plan of care and expected duration. Pain level reassessed. Patient is alert, oriented x 3, equal unlabored respirations, skin warm/dry/pink. Vital Signs: 06/30 17:14 BP 201 / 129; Pulse 100; Resp 24; Temp 102.5(O); Pulse Ox 100% on R/A; Weight 73.48 kg; ll1 Height 5 ft. 2 in. (157.48 cm); Pain 03/30; 21:30 BP 192 / 90; Pulse 104; Resp 22; Pulse Ox 100% on R/A; mk 22:23 BP 150 / 95; Pulse 88; Resp 18; Pulse Ox 94% on 2 lpm NC; mk 23:27 BP 116 / 71; Pulse 80; Resp 18; Pulse Ox 100% on 2 lpm NC; mk 07/01 00:30 BP 134 / 81; Pulse 86; Resp 18; Temp 97.4; Pulse Ox 99% on R/A; mk 01:30 BP 134 / 81; Pulse 81; Resp 18; Pulse Ox 100% on R/A; mk 02:30 BP 194 / 91; Pulse 92; Resp 18; Pulse Ox 100% on R/A; mk 03:30 BP 143 / 74; Pulse 83; Resp 18; Pulse Ox 99% on R/A; mk 04:30 BP 175 / 82; Pulse 81; Resp 18; Pulse Ox 98% on R/A; mk 05:30 BP 198 / 112; Pulse 78; Resp 18; Pulse Ox 99% on R/A; mk 08:55 BP 141 / 69; Pulse 82; Resp 18; Temp 98.3(O); Pulse Ox 99% on R/A; holman 06/30 17:14 Body Mass Index 29.63 (73.48 kg, 157.48 cm) ll1 Jose Coma Score: 06/30 21:30 Eye Response: spontaneous(4). Verbal Response: oriented(5). Motor Response: obeys mk commands(6). Total: 15. 22:23 Eye Response: to voice(3). Verbal Response: oriented(5). Motor Response: obeys mk commands(6). Total: . 07/01 00:30 Eye Response: spontaneous(4). Verbal Response: oriented(5). Motor Response: obeys mk commands(6). Total: 15. 01:30 Eye Response: spontaneous(4). Verbal Response: oriented(5). Motor Response: obeys mk commands(6). Total: 15. 02:30 Eye Response: spontaneous(4). Verbal Response: oriented(5). Motor Response: obeys mk commands(6). Total: 15. 03:30 Eye Response: spontaneous(4). Verbal Response: oriented(5). Motor Response: obeys mk commands(6). Total: 15. 04:30 Eye Response: spontaneous(4). Verbal Response: oriented(5). Motor Response: obeys commands(6). Total: 15. 05:30 Eye Response: spontaneous(4). Verbal Response: oriented(5). Motor Response: obeys commands(6). Total: 15. ED Course: 06/30 16:50 Patient arrived in ED. ds1 17:17 Triage completed. ll1 17:17 Arm band placed on. ll1 20:59 Anand Gallo NP is PHCP. pm1 20:59 Luis Sandra MD is Attending Physician. pm1 21:06 Gail Elizabeth, TABATHA is Primary Nurse. mk 21:11 Strep Sent. mk 21:30 Patient has correct armband on for positive identification. Allergy band placed. Bed in low position. Call light in reach. Side rails up X 1. security monitor on. Pulse ox on. NIBP on. 22:06 CBC with Diff Sent. mk 22:06 Hepatic Function Sent. mk 22:06 Lipase Sent. mk 22:06 Group A Streptococcus Rapid Sc Sent. mk 22:06 Basic Metabolic Panel Sent. mk 22:06 Inserted saline lock: 20 gauge in left wrist, using aseptic technique. mk 22:07 Basic Metabolic Panel Sent. mk 22:58 Chest Single View XRAY In Process Unspecified. EDMS 23:29 CT Abd/Pelvis - Without Contrast In Process Unspecified. EDMS 07/01 00:18 John Farrell PA is Hospitalizing Provider. pm1 01:57 No provider procedures requiring assistance completed. mk 04:03 Throat Culture Sent. mk Administered Medications: 06/30 21:11 Drug: Tylenol 1000 mg Route: PO; 22:06 Follow up: Response: No adverse reaction; Pain is unchanged, physician notified 22:06 Drug: Reglan (metoCLOPramide) 10 mg Route: IVP; Site: left hand; 22:06 Drug: Demerol (meperidine) 50 mg Route: IVP; Site: left hand; 07/01 00:18 Drug: Insulin Regular Human 5 units {Co-Signature: kd3 (Helen Justin RN).} Route: IVP; Site: Other; 07:22 Follow up: Response: Blood sugar is lowered 00:18 Drug: Calcium Gluconate 1 grams Route: IVPB; Infused Over: 60 mins; Site: left wrist; mk 07:22 Follow up: Response: No adverse reaction mk 07:22 Follow up: Response: No adverse reaction mk 00:18 Drug: D50W 50 ml Route: IVP; Site: left hand; mk 00:19 Drug: Kayexalate (polystyrene) 45 grams Route: PO; mk 07:22 Follow up: Response: No adverse reaction mk 00:19 Drug: Albuterol 5 mg Route: Inhalation; mk 07:22 Follow up: Response: No adverse reaction mk 01:40 Drug: D50W 50 ml Route: IVP; Site: left wrist; mk Outcome: 00:19 Decision to Hospitalize by Provider. pm1 20:30 Patient left the ED. mw2 Signatures: Dispatcher [employer] EDMS CrispinTabby ds1 Anand Gallo, [employer] pm1 Anil Sterling mw2 Georgette Longoria RN RN ll1 Bailee Arias RN RN ha Kotarski, Madeline, RN RN mk Kyli Doucette RN kd3 Corrections: (The following items were deleted from the chart) 03:47 00:30 Reassessment: Patient and/or family updated on plan of care and expected mk duration. Pain level reassessed. Patient is alert, oriented x 3, equal unlabored respirations, skin warm/dry/pink. 03:47 01:30 Reassessment: Patient and/or family updated on plan of care and expected mk duration. Pain level reassessed. Patient is alert, oriented x 3, equal unlabored respirations, skin warm/dry/pink. 03:47 02:30 Reassessment: Patient and/or family updated on plan of care and expected mk duration. Pain level reassessed. Patient is alert, oriented x 3, equal unlabored respirations, skin warm/dry/pink. 07:23 00:30 BP 134 / 81; Pulse 86bpm; Resp 18bpm; Pulse Ox 99% RA; mk mk
--- NOTE | 2021-07-01 00:20 | EDPHYS ---
Physician Documentation [facility] Name: Cathi Zaldivar Age: 40 yrs Sex: Female : 1980 Arrival Date: 06/30/2021 Time: 16:50 Bed 19 Private MD: DWIGHT Physician Luis Sandra HPI: 06/30 21:09 This 40 yrs old Female presents to ER via Wheelchair with complaints of pm1 Abdominal Pain, Nausea. 21:09 The patient presents with abdominal pain in the epigastric area. Onset: The pm1 symptoms/episode began/occurred this morning, at 07:00. The symptoms do not radiate. Associated signs and symptoms: Pertinent positives: fever, nausea, Pertinent negatives: chest pain, shortness of breath. The symptoms are described as achy. Modifying factors: The symptoms are alleviated by nothing, the symptoms are aggravated by nothing. Patient reports it feels like her prior gastroparesis but with a fever. The patient has not recently seen a physician. Historical: - Allergies: 17:17 ambien; ll1 17:17 Codeine; ll1 17:17 GUAIFENESIN; ll1 17:17 Ibuprofen; ll1 17:17 Lisinopril; ll1 17:17 Morphine; ll1 17:17 Nitrofurantoin Macrocrystal; ll1 17:17 PENICILLINS; ll1 17:17 Prolixin; ll1 17:17 zolpidem tartrate; ll1 - PMHx: 17:17 "mental problems"; CHF; chronic kidney disease; covid 19; cyclic vomiting syndrome; ll1 Diabetes - NIDDM; Dialysis; m-w-f; ENCEPHALOPATHY; Gastroparesis; HD-TTHSat; Hypertension; ibs; liver failure; PERIPHERAL NEUROPATHY; pseudo aneurysm R groin; Seizures; - PSHx: 17:17 section; dialysis catheter R chest wall; eye removed; ll1 - Immunization history:: Client reports having NOT received the Covid vaccine. Flu vaccine is up to date. - Social history:: Smoking status: Patient reports the use of cigarette tobacco products, smokes one-half pack cigarettes per day. ROS: 21:09 ENT: Negative for injury, pain, and discharge, Cardiovascular: Negative for chest pain, pm1 palpitations, and edema. 21:09 Back: Negative for injury and pain, MS/Extremity: Negative for injury and deformity, Skin: Negative for injury, rash, and discoloration. 21:09 Neuro: Negative for headache, weakness, numbness, tingling, and seizure. 21:09 Constitutional: Positive for body aches, fever. 21:09 Respiratory: Positive for cough, Negative for shortness of breath. 21:09 Abdomen/GI: Positive for abdominal pain, nausea, Negative for vomiting, diarrhea. 21:09 All other systems are negative. Exam: 21:09 Head/Face: Normocephalic, atraumatic. pm1 21:09 Back: No spinal tenderness. No costovertebral tenderness. Full range of motion. Skin: Warm, dry with normal turgor. Normal color with no rashes, no lesions, and no evidence of cellulitis. MS/ Extremity: Pulses equal, no cyanosis. Neurovascular intact. Full, normal range of motion. 21:09 Constitutional: The patient appears in no acute distress, alert, awake, non-diaphoretic, non-toxic, well developed, well hydrated, well groomed, well nourished, febrile. 21:09 Cardiovascular: Exam negative for acute changes, Rate: normal, Rhythm: regular, Pulses: no pulse deficits are appreciated, Heart sounds: normal. 21:09 Respiratory: Exam negative for acute changes, respiratory distress, shortness of breath, Breath sounds: are clear throughout. 21:09 Abdomen/GI: Inspection: obese Palpation: soft, in all quadrants, mild abdominal tenderness, in the right lower quadrant and left lower quadrant. 21:09 Neuro: Exam negative for acute changes, Orientation: is normal, Mentation: is normal, Motor: is normal, moves all fours. Vital Signs: 17:14 BP 201 / 129; Pulse 100; Resp 24; Temp 102.5(O); Pulse Ox 100% on R/A; Weight 73.48 kg; ll1 Height 5 ft. 2 in. (157.48 cm); Pain 10/10; 21:30 BP 192 / 90; Pulse 104; Resp 22; Pulse Ox 100% on R/A; mk 22:23 BP 150 / 95; Pulse 88; Resp 18; Pulse Ox 94% on 2 lpm NC; mk 23:27 BP 116 / 71; Pulse 80; Resp 18; Pulse Ox 100% on 2 lpm NC; mk 07/01 00:30 BP 134 / 81; Pulse 86; Resp 18; Temp 97.4; Pulse Ox 99% on R/A; mk 01:30 BP 134 / 81; Pulse 81; Resp 18; Pulse Ox 100% on R/A; mk 02:30 BP 194 / 91; Pulse 92; Resp 18; Pulse Ox 100% on R/A; mk 03:30 BP 143 / 74; Pulse 83; Resp 18; Pulse Ox 99% on R/A; mk 04:30 BP 175 / 82; Pulse 81; Resp 18; Pulse Ox 98% on R/A; mk 05:30 BP 198 / 112; Pulse 78; Resp 18; Pulse Ox 99% on R/A; mk 08:55 BP 141 / 69; Pulse 82; Resp 18; Temp 98.3(O); Pulse Ox 99% on R/A; holman 06/30 17:14 Body Mass Index 29.63 (73.48 kg, 157.48 cm) ll1 Galloway Coma Score: 06/30 21:30 Eye Response: spontaneous(4). Verbal Response: oriented(5). Motor Response: obeys mk commands(6). Total: 15. 22:23 Eye Response: to voice(3). Verbal Response: oriented(5). Motor Response: obeys mk commands(6). Total: 14. 07/01 00:30 Eye Response: spontaneous(4). Verbal Response: oriented(5). Motor Response: obeys mk commands(6). Total: 15. 01:30 Eye Response: spontaneous(4). Verbal Response: oriented(5). Motor Response: obeys mk commands(6). Total: 15. 02:30 Eye Response: spontaneous(4). Verbal Response: oriented(5). Motor Response: obeys mk commands(6). Total: 15. 03:30 Eye Response: spontaneous(4). Verbal Response: oriented(5). Motor Response: obeys mk commands(6). Total: 15. 04:30 Eye Response: spontaneous(4). Verbal Response: oriented(5). Motor Response: obeys mk commands(6). Total: 15. 05:30 Eye Response: spontaneous(4). Verbal Response: oriented(5). Motor Response: obeys mk commands(6). Total: 15. MDM: 06/30 21:03 Patient medically screened. pm1 07/01 00:18 Data reviewed: vital signs. Data interpreted: Pulse oximetry: on room air is 95 %. pm1 Interpretation: normal. Counseling: I had a detailed discussion with the patient and/or guardian regarding: the historical points, exam findings, and any diagnostic results supporting the discharge/admit diagnosis. 06/30 21:05 Order name: Strep; Complete Time: 00:42 pm1 06/30 21:05 Order name: Group A Streptococcus Rapid Sc; Complete Time: 23:53 EDMS 06/30 21:08 Order name: Basic Metabolic Panel pm1 06/30 21:08 Order name: CBC with Diff; Complete Time: 00:54 pm1 06/30 21:08 Order name: Hepatic Function; Complete Time: 00:00 pm1 06/30 21:08 Order name: Lipase; Complete Time: 00:00 pm1 06/30 21:08 Order name: Basic Metabolic Panel; Complete Time: 00:00 EDMS 06/30 23:27 Order name: CBC Smear Scan; Complete Time: 00:54 EDMS 06/30 23:37 Order name: Throat Culture EDMS 07/01 00:38 Order name: Glucose, Ancillary Testing; Complete Time: 00:42 EDMS 07/01 01:56 Order name: Glucose, Ancillary Testing; Complete Time: 02:02 EDMS 07/01 02:20 Order name: Glucose, Ancillary Testing; Complete Time: 02:26 EDMS 07/01 11:50 Order name: CBC with Automated Diff EDMS 06/30 22:32 Order name: CT Abd/Pelvis - Without Contrast pm1 06/30 22:32 Order name: Chest Single View XRAY pm1 07/01 00:00 Order name: EKG; Complete Time: 00:01 pm1 07/01 12:09 Order name: Glucose, Ancillary Testing EDMS 07/01 12:17 Order name: Comprehensive Metabolic Panel EDMS 07/01 12:17 Order name: Transferrin Sat/Iron Binding EDMS 07/01 12:18 Order name: Vitamin B12 Level EDMS 06/30 21:08 Order name: IV Saline Lock; Complete Time: 22:06 pm1 06/30 21:08 Order name: Labs collected and sent; Complete Time: 22:05 pm1 07/01 00:00 Order name: EKG - Nurse/Tech; Complete Time: 01:56 pm1 07/01 02:27 Order name: CONS Physician Consult EDMS Administered Medications: 06/30 21:11 Drug: Tylenol 1000 mg Route: PO; 22:06 Follow up: Response: No adverse reaction; Pain is unchanged, physician notified mk 22:06 Drug: Reglan (metoCLOPramide) 10 mg Route: IVP; Site: left hand; mk 22:06 Drug: Demerol (meperidine) 50 mg Route: IVP; Site: left hand; 07/01 00:18 Drug: Insulin Regular Human 5 units {Co-Signature: kd3 (Helen Justin RN).} Route: IVP; Site: Other; 07:22 Follow up: Response: Blood sugar is lowered 00:18 Drug: Calcium Gluconate 1 grams Route: IVPB; Infused Over: 60 mins; Site: left wrist; 07:22 Follow up: Response: No adverse reaction mk 07:22 Follow up: Response: No adverse reaction mk 00:18 Drug: D50W 50 ml Route: IVP; Site: left hand; 00:19 Drug: Kayexalate (polystyrene) 45 grams Route: PO; 07:22 Follow up: Response: No adverse reaction mk 00:19 Drug: Albuterol 5 mg Route: Inhalation; mk 07:22 Follow up: Response: No adverse reaction 01:40 Drug: D50W 50 ml Route: IVP; Site: left wrist; Disposition: 07/02 10:09 Co-signature as Attending Physician, Luis Sandra MD I agree with the assessment and juan plan of care. Disposition Summary: 07/01/21 00:19 Hospitalization Ordered Hospitalization Status: Inpatient Admission pm1 Provider: John Farrell pm1 Condition: Stable pm1 Problem: new pm1 Symptoms: have improved pm1 Bed/Room Type: Standard pm1 Location: Telemetry/MedSurg (Inpatient)(07/01/21 17:56) Room Assignment: 426(07/01/21 17:56) bd Diagnosis - Coronavirus infection, unspecified pm1 - End stage renal disease pm1 - Hyperkalemia pm1 Forms: - Medication Reconciliation Form pm1 - SBAR form pm1 Signatures: Dispatcher [employer] EDMS DirrimShruthi Corey, MD MD cha Garcia, Cindy, RN RN cg Anand Gallo, FIELD TRAINING AGENT FIELD TRAINING AGENT pm1 Georgette Longoria RN RN ll1 Gail Elizabeth RN RN Helen Justin RN kd3 Corrections: (The following items were deleted from the chart) 07/01 01:42 00:19 Telemetry/MedSurg (Inpatient) pm1 cg 01:42 00:19 pm1 cg 17:56 01:42 [facility] ER HOLD cg bd 17:56 01:42 ERHOLD- cg bd
[2021-07-01 00:49] LABS: Blood Morphology Comment NOT SEEN (NOT SEEN); Platelet Estimate DECR; White Blood Cell Scan OK (OK)
--- NOTE | 2021-07-01 04:47 | P.HP ---
Certification for Inpatient Patient admitted to: Inpatient With expected LOS: <2 Midnights Practitioner: I am a practitioner with admitting privileges, knowledge of patient current condition, hospital course, and medical plan of care. Services: Services provided to patient in accordance with Admission requirements found in Title 42 Section 412.3 of the Code of Federal Regulations Patient History Date of Service: 07/01/21 Reason for admission: COVID, hyperkalemia History of Present Illness: Ms. Zaldivar is a 40 yo F with history of ESRD on HD, CHF, hypertension, diabetes mellitus type 2 who presents with fever, cough, SOB beginning on Wednesday. She also reports malaise, fatigue, nausea and vomiting. Denies wheezing, diarrhea. COVID test is positive in the ED. She last went to dialysis on Wednesday, but was too weak to go today. H/H 8.7 Plt 82 K 6.2 BUN 59 Cr 8.81 GFR 5. Peaked T waves on EKG. She received the potassium cocktail in the ED. Allergies zolpidem tartrate [From Ambien] Allergy (Intermediate, Verified 10/17/16 23:08) Itching/Hives/Rash codeine [Codeine] Allergy (Verified 10/17/16 23:08) Hives fluphenazine enanthate [From Prolixin] Allergy (Verified 10/17/16 23:08) ARM NUMBNESS fluphenazine HCl [From Prolixin] Allergy (Verified 10/17/16 23:08) ARM NUMBNESS guaifenesin [From Prolex D] Allergy (Verified 10/17/16 23:08) Hives lisinopril Allergy (Verified 04/21/17 10:26) Anaphylaxis morphine Allergy (Verified 10/01/20 10:03) Itching Penicillins Allergy (Verified 10/17/16 23:08) Hives phenylephrine HCl [From Prolex D] Allergy (Verified 10/17/16 23:08) Hives nitrofurantoin Adverse Reaction (Verified 08/07/17 23:41) liver failure Home Medications: Calcium Acetate [Phoslo*] 2 cap PO TIDWM 03/05/20 Calcium Acetate [Phoslo*] 667 mg PO SNACKS 03/05/20 Divalproex Sodium [Divalproex Sodium ER] 500 mg PO BID 03/05/20 Linagliptin [Tradjenta] 5 mg PO DAILY 03/05/20 Sertraline [Zoloft*] 50 mg PO DAILY 03/05/20 Trazodone HCl 150 mg PO BEDTIME PRN PRN 03/05/20 Pantoprazole Sodium [Protonix] 1 tab PO DAILY 30 Days #30 tablet. 03/06/20 Gabapentin 1 tab PO BID 07/22/20 Metoprolol Succinate 25 mg PO DAILY 07/22/20 Pravastatin Sodium 1 tab PO DAILY 07/22/20 Doxazosin [Cardura*] 4 mg PO BEDTIME 09/30/20 Folic Acid/Vit B Complex and C [Dialyvite 800 Chewable Wafer] 1 tab PO DAILY 09/30/20 Furosemide [Lasix*] 40 mg PO BID 09/30/20 Metoclopramide [Reglan*] 5 ml PO TID 30 Days #45 ucup 10/01/20 Ondansetron [Zofran (Odt)*] 4 mg PO Q8H PRN 14 Days #30 tab 10/01/20 Ascorbate Calcium [Vitamin C] 500 mg PO TID #90 tablet 10/28/20 Sucralfate [Carafate*] 1 gm PO ACHS #90 tab 10/28/20 Zinc Sulfate [Zinc Sulfate*] 220 mg PO DAILY #30 cap 10/28/20 Calcitrol [Rocaltrol*] 0.5 mcg PO DAILY #30 cap 11/07/20 Hydralazine HCl 25 mg PO TID #90 tablet 11/07/20 Hydrocodone 10/APAP 325 [[place] 10/325*] 1 tab PO Q12H PRN #40 tab 11/07/20 Nepro Shake [Nepro*] 237 ml PO TID #60 can 11/07/20 Cholecalciferol (Vitamin D3) [Vitamin D 5,000 IU Cap*] 5,000 unit PO DAILY #30 cap 01/16/21 - Past Medical/Surgical History Diabetic: Yes -: DM Type 2 -: Seizure disorder -: ESRD on HD -: DM Gastroparesis -: DM Neuropathy -: Insomnia -: Obesity -: JAYLA -: Hypertension -: Post traumatic stress disorder -: Schizoaffective disorder -: CHF, diastolic -: I/D of the right elbow -: 2 previous C-sections -: Tubal ligation Psychosocial/ Personal History: She is , she has 2 children, she does not work. She lives with her boyfriend and daughter. - Family History Mother -: Hypertension, Diabetes, Cancer, Other (see notes) Notes: hypothyroid, asthma, breast cancer Father -: Diabetes, Cancer Notes: - stomach/ lung/ prostate cancer, diabetes - Social History Alcohol use: No CD- Drugs: No Caffeine use: Yes Place of Residence: Home Review of Systems 10-point ROS is otherwise unremarkable General: Fever, Chills, Sweats, Weakness, Malaise, As per HPI Eyes: As per HPI ENT: Unremarkable Respiratory: Cough, Shortness of Breath, SOB with Excertion, As per HPI Cardiovascular: Unremarkable Gastrointestinal: Nausea, Vomiting Genitourinary: Unremarkable Musculoskeletal: Unremarkable Integumentary: Unremarkable Neurological: Unremarkable Lymphatics: Unremarkable Physical Examination - Physical Exam General: In no apparent distress HEENT: Atraumatic, Mucous membr. moist/pink, Sclerae nonicteric Neck: Supple, 2+ carotid pulse no bruit, No LAD, Without JVD or thyroid abnormality Respiratory: Diminished Cardiovascular: Regular rate/rhythm, Normal S1 S2 Gastrointestinal: Normal bowel sounds, No tenderness Musculoskeletal: No tenderness Integumentary: Other (wound vac in place for right inner thigh wound ) Neurological: Normal strength at 5/5 x4 extr, Normal tone Lymphatics: No axilla or inguinal lymphadenopathy - Studies Laboratory Data (last 24 hrs) 06/30/21 22:08: WBC 4.50, Hgb 8.7 L, Hct 26.1 L, Plt Count 82 L* 06/30/21 22:08: Sodium 138, Potassium 6.2 H*, BUN 59 H, Creatinine 8.81 H*, Glucose 90, Total Bilirubin 0.4, AST 18, ALT 16, Alkaline Phosphatase 59, Lipase 202 Microbiology Data (last 24 hrs): 06/30/21 21:05 Throat Group A Streptococcus Rapid Screen - Final Assessment and Plan - Problems (Diagnosis) (1) COVID Current Visit: Yes Status: Acute (2) Missed dialysis Current Visit: Yes Status: Acute (3) Anemia Onset Date: 09/02/17 Current Visit: No Status: Chronic Qualifiers: Anemia type: unspecified type Qualified Code(s): D64.9 - Anemia, unspecified (4) Hyperkalemia Current Visit: No Status: Acute (5) CHF (congestive heart failure) Onset Date: 10/19/16 Current Visit: No Status: Chronic Qualifiers: Heart failure type: unspecified Heart failure chronicity: chronic Qualified Code(s): I50.9 - Heart failure, unspecified (6) COPD (chronic obstructive pulmonary disease) Onset Date: 08/09/17 Current Visit: No Status: Chronic Qualifiers: (7) Diabetes mellitus Onset Date: 10/19/16 Current Visit: No Status: Chronic Qualifiers: Diabetes mellitus type: type 2 Diabetes mellitus snf insulin use: unspecified snf insulin use status Diabetes mellitus complication status: with kidney complications Diabetes mellitus complication detail: with chronic kidney disease Chronic kidney disease stage: on chronic dialysis Qualified Code(s): E11.22 - Type 2 diabetes mellitus with diabetic chronic kidney disease; N18.6 - End stage renal disease; Z99.2 - Dependence on renal dialysis (8) ESRD (end stage renal disease) Current Visit: No Status: Chronic - Plan nephrology consulted, plan for dialysis in the AM repeat potassium in the AM moitor glucose closely hydralazine PRN for BP spikes tylenol PRN for fever, continue covid supplements reconcile and continue home medications anemia workup pending DVT ppx Discharge Plan: Home Plan to discharge in: 48 Hours - Advance Directives Does patient have a Living Will: Yes Does patient have a Durable POA for Healthcare: Yes - Code Status/Comfort Care Code Status Assessed: Yes (full code) Critical Care: No Time Spent Managing Pts Care (In Minutes): 70
[2021-07-01 06:45] VITALS: BMI 33.9
--- NOTE | 2021-07-01 08:33 | RAD REPORT ---
EXAM DESCRIPTION: RAD - Chest Single View - 06/30/2021 10:58 pm CLINICAL HISTORY: FEVER Chest pain. COMPARISON: Chest Single View dated 03/31/2021; Chest Single View dated 02/17/2021; Chest Single View dated 10/10/2020; Chest Single View dated 09/30/2020 FINDINGS: Portable technique limits examination quality. Mild bilateral interstitial lung opacities are present suspicious for mild interstitial pulmonary karlos ma or viral infection. The heart is upper limit of normal in size. Right-sided dialysis catheter is u nchanged in position.Stent material is present right subclavian region.
[2021-07-01] MEDS ORDERED: D50W 25 GM/50 ML SYRINGE IV PRN (09:15)
[2021-07-01] MEDS ORDERED: ALBUMIN HUMAN 25% 50 ML IV SCH (09:15)
[2021-07-01] MEDS: THIAMINE HCL 100 MG TABLET PO SCH (09:15)
[2021-07-01] MEDS ORDERED: HYDRALAZINE HCL 20 MG/ML VIAL IV PRN (09:15)
[2021-07-01] MEDS ORDERED: GLUCAGON 1 MG/VIAL IM PRN (09:15)
[2021-07-01] MEDS ORDERED: NA CHLORIDE 0.9% 1,000 ML IV PRN (09:15)
[2021-07-01] MEDS: INSULIN -REGULAR HUMAN 50 UNIT/0.5 ML ML SQ SCH ×4 (09:15→21:00)
[2021-07-01] MEDS: ZINC SULFATE 220 MG CAP PO SCH (09:15)
[2021-07-01] MEDS ORDERED: BENZONATATE 100 MG CAP PO PRN (09:15)
[2021-07-01] MEDS ORDERED: MANNITOL 25% 12.5 GM/50 ML VIAL IV PRN (09:15)
[2021-07-01] MEDS ORDERED: VITAMIN D 1000 UNIT TAB PO SCH (09:15)
[2021-07-01] MEDS: ASCORBIC ACID 500 MG TABLET PO SCH ×4 (09:15→22:07)
[2021-07-01] MEDS: ONDANSETRON 4 MG/2 ML VIAL IV PRN ×2 (10:34→17:25)
[2021-07-01] MEDS: ACETAMINOPHEN 500 MG TAB PO PRN ×3 (10:34→22:06)
[2021-07-01] MEDS ORDERED: ASCORBIC ACID 500 MG TABLET ONE (10:37)
[2021-07-01] MEDS ORDERED: ACETAMINOPHEN 500 MG TAB ONE ×2 (10:37→17:28)
[2021-07-01] MEDS ORDERED: VITAMIN D 1000 UNIT TAB ONE (10:38)
[2021-07-01] MEDS ORDERED: ZINC SULFATE 220 MG CAP ONE (10:38)
[2021-07-01] MEDS ORDERED: ONDANSETRON 4 MG/2 ML VIAL ONE ×2 (10:38→17:28)
[2021-07-01] MEDS ORDERED: VITAMIN B COMPLEX 1 CAP ONE (10:40)
[2021-07-01 11:46] LABS: Absolute Lymphocytes (CBC) 0.7 K/uL (0.7-4.9); Hematocrit 26.4 % (36.0-45.0); Lymphocytes % 26.1 % (15.3-44.8); MPV 10.6 fL (7.6-11.3)
[2021-07-01 12:13] LABS: Albumin 2.8 g/dL (3.4-5.0); Bilirubin Total 0.4 mg/dL (0.2-1.0); Protein, Total 6.4 g/dL (6.4-8.2)
[2021-07-01 12:16] LABS: Potassium 6.3 mmol/L (3.5-5.1)
--- NOTE | 2021-07-01 14:42 | RAD REPORT ---
EXAM DESCRIPTION: Abdomen Pelvis Wo Contrast RadLex: CT ABDOMEN PELVIS WITHOUT IV CONTRAST CLINICAL HISTORY: ABD PAIN. History of pseudoaneurysm surgery two weeks ago, wound pump, C-sections. COMPARISON: CT of the abdomen and pelvis without contrast from January 16, 2021. TECHNIQUE: Serial axial CT images were obtained from above the diaphragm through the pubic symphysis without administration of intravenous or oral contrast. All CT scans are performed using dose optimization techniques as appropriate, including automated exp osure control and/or standardized protocols, where dose is adjusted for indication for exam and body habitus. FINDINGS: Thoracic: Trace bilateral pleural effusions. Hepatobiliary: No obvious concerning hepatic lesion identified in the absence of intravenous contrast . The gallbladder is unremarkable. No biliary ductal dilatation. Pancreas: Unremarkable. Spleen: Unremarkable. Gastrointestinal: No evidence of bowel obstruction or perienteric inflammation. The appendix is reji l. Adrenals: No abnormality identified in either adrenal gland. Renal: No obvious parenchymal abnormality in either kidney in the absence of intravenous contrast. No hydronephrosis or urolithiasis. Bladder/Reproductive: Mild diffuse wall thickening of the urinary bladder. Unremarkable CT appearance of the uterus and ovaries. Vascular/Lymphatics: No lymphadenopathy identified by CT size criteria. Abdominal aorta is normal in caliber. Partially imaged right superficial femoral artery stent. Partially imaged mild overlying fat stranding with no fluid collections imaged. Prominent peripheral calcific atherosclerosis. Musculoskeletal: No concerning osseous lesion identified. Fluid / peritoneum: No significant free fluid. No free intraperitoneal air identified. IMPRESSION: 1. Mild diffuse wall thickening of the urinary bladder. Consider correlation for cysti tis. 2. Trace bilateral pleural effusions. 3. Partially imaged right superficial femoral artery stent. 4. Prominent peripheral calcific atherosclerosis. Electronically signed by: Kenyetta Enciso MD 06/30/2021 11:37 PM [employer] Due to temporary technical issues with the PACS/Fluency reporting system, reports are being signed by the in house radiologists without review as a courtesy to insure prompt reporting. The interpreting radiologist is fully responsible for the content of the report.
[2021-07-01] MEDS: HYDROMORPHONE HCL 0.5 MG/0.5 ML INJ IV PRN ×2 (18:26→23:50)
[2021-07-01] MEDS ORDERED: HYDROMORPHONE HCL 0.5 MG/0.5 ML INJ ONE (18:29)
--- NOTE | 2021-07-01 19:22 | P.CNS ---
Date of Consult: 07/01/21 Reason for Consult: ESRD Requesting Physician: Jose De Jesus Velásquez Chief Complaint: COVID, hyperkalemia History of Present Illness: 40 yo HF CKD, CHF, DM presented to the ER with moderate, progressive fever with associated cough and dyspnea. Her last dialysis was Wednesday. Ms. Zaldivar is a 40 yo F with history of ESRD on HD, CHF, hypertension, diabetes mellitus type 2 who presents with fever, cough, SOB beginning on Wednesday. She also reports malaise, fatigue, nausea and vomiting. Denies wheezing, diarrhea. COVID test is positive in the ED. She last went to dialysis on Wednesday, but was too weak to go today. H/H 8.7 Plt 82 K 6.2 BUN 59 Cr 8.81 GFR 5. Peaked T waves on EKG. She received the potassium cocktail in the ED. Allergies zolpidem tartrate [From Ambien] Allergy (Intermediate, Verified 10/17/16 23:08) Itching/Hives/Rash codeine [Codeine] Allergy (Verified 10/17/16 23:08) Hives fluphenazine enanthate [From Prolixin] Allergy (Verified 10/17/16 23:08) ARM NUMBNESS fluphenazine HCl [From Prolixin] Allergy (Verified 10/17/16 23:08) ARM NUMBNESS guaifenesin [From Prolex D] Allergy (Verified 10/17/16 23:08) Hives lisinopril Allergy (Verified 04/21/17 10:26) Anaphylaxis morphine Allergy (Verified 10/01/20 10:03) Itching Penicillins Allergy (Verified 10/17/16 23:08) Hives phenylephrine HCl [From Prolex D] Allergy (Verified 10/17/16 23:08) Hives nitrofurantoin Adverse Reaction (Verified 08/07/17 23:41) liver failure Home medications list reviewed: Yes Home Medications: Calcium Acetate [Phoslo*] 2 cap PO TIDWM 03/05/20 Calcium Acetate [Phoslo*] 667 mg PO SNACKS 03/05/20 Divalproex Sodium [Divalproex Sodium ER] 500 mg PO BID 03/05/20 Linagliptin [Tradjenta] 5 mg PO DAILY 03/05/20 Sertraline [Zoloft*] 50 mg PO DAILY 03/05/20 Trazodone HCl 150 mg PO BEDTIME PRN PRN 03/05/20 Pantoprazole Sodium [Protonix] 1 tab PO DAILY 30 Days #30 tablet. 03/06/20 Gabapentin 1 tab PO BID 07/22/20 Metoprolol Succinate 25 mg PO DAILY 07/22/20 Pravastatin Sodium 1 tab PO DAILY 07/22/20 Doxazosin [Cardura*] 4 mg PO BEDTIME 09/30/20 Folic Acid/Vit B Complex and C [Dialyvite 800 Chewable Wafer] 1 tab PO DAILY 09/30/20 Furosemide [Lasix*] 40 mg PO BID 09/30/20 Metoclopramide [Reglan*] 5 ml PO TID 30 Days #45 ucup 10/01/20 Ondansetron [Zofran (Odt)*] 4 mg PO Q8H PRN 14 Days #30 tab 10/01/20 Ascorbate Calcium [Vitamin C] 500 mg PO TID #90 tablet 10/28/20 Sucralfate [Carafate*] 1 gm PO ACHS #90 tab 10/28/20 Zinc Sulfate [Zinc Sulfate*] 220 mg PO DAILY #30 cap 10/28/20 Calcitrol [Rocaltrol*] 0.5 mcg PO DAILY #30 cap 11/07/20 Hydralazine HCl 25 mg PO TID #90 tablet 11/07/20 Hydrocodone 10/APAP 325 [[place] 10/325*] 1 tab PO Q12H PRN #40 tab 11/07/20 Nepro Shake [Nepro*] 237 ml PO TID #60 can 11/07/20 Cholecalciferol (Vitamin D3) [Vitamin D 5,000 IU Cap*] 5,000 unit PO DAILY #30 cap 01/16/21 - Past Medical/Surgical History Diabetic: Yes -: DM Type 2 -: Seizure disorder -: ESRD on HD -: DM Gastroparesis -: DM Neuropathy -: Insomnia -: Obesity -: JAYLA -: Hypertension -: Post traumatic stress disorder -: Schizoaffective disorder -: CHF, diastolic -: I/D of the right elbow -: 2 previous C-sections -: Tubal ligation Psychosocial/ Personal History: She is , she has 2 children, she does not work. She lives with her boyfriend and daughter. - Family History Mother Medical History: Hypertension, Diabetes, Cancer, Other (see notes) Notes: hypothyroid, asthma, breast cancer Father History Unknown: Yes Medical History: Diabetes, Cancer Notes: - stomach/ lung/ prostate cancer, diabetes - Social History Smoking Status: Current every day smoker Alcohol use: No CD- Drugs: No Caffeine use: No Place of Residence: Home Review of Systems 10-point ROS is otherwise unremarkable General: Weakness, Malaise Respiratory: Cough, SOB with Excertion Neurological: Weakness Physical Examination Temp Pulse Resp BP Pulse Ox 99.0 F 18 141/69 H 98 07/01/21 08:00 07/01/21 08:00 07/01/21 08:00 07/01/21 08:00 General: In no apparent distress, Oriented x3, Cooperative HEENT: Atraumatic Neck: Supple Respiratory: Normal air movement Cardiovascular: Normal pulses, Regular rate/rhythm, Edema Gastrointestinal: Soft and benign, Non-distended Musculoskeletal: No clubbing Integumentary: No rashes, No cyanosis Neurological: Normal speech Laboratory Data (last 24 hrs) 06/30/21 22:08: WBC 4.50, Hgb 8.7 L, Hct 26.1 L, Plt Count 82 L* 06/30/21 22:08: Sodium 138, Potassium 6.2 H*, BUN 59 H, Creatinine 8.81 H*, Glucose 90, Total Bilirubin 0.4, AST 18, ALT 16, Alkaline Phosphatase 59, Lipase 202 Imagings Data: EXAM DESCRIPTION: Abdomen Pelvis Wo Contrast RadLex: CT ABDOMEN PELVIS WITHOUT IV CONTRAST CLINICAL HISTORY: ABD PAIN. History of pseudoaneurysm surgery two weeks ago, wound pump, C-sections. COMPARISON: CT of the abdomen and pelvis without contrast from January 16, 2021. TECHNIQUE: Serial axial CT images were obtained from above the diaphragm through the pubic symphysis without administration of intravenous or oral contrast. All CT scans are performed using dose optimization techniques as appropriate, including automated exposure control and/or standardized protocols, where dose is adjusted for indication for exam and body habitus. FINDINGS: Thoracic: Trace bilateral pleural effusions. Hepatobiliary: No obvious concerning hepatic lesion identified in the absence of intravenous contrast. The gallbladder is unremarkable. No biliary ductal dilatation. Pancreas: Unremarkable. Spleen: Unremarkable. Gastrointestinal: No evidence of bowel obstruction or perienteric inflammation. The appendix is normal. Adrenals: No abnormality identified in either adrenal gland. Renal: No obvious parenchymal abnormality in either kidney in the absence of intravenous contrast. No hydronephrosis or urolithiasis. Bladder/Reproductive: Mild diffuse wall thickening of the urinary bladder. Unremarkable CT appearance of the uterus and ovaries. Vascular/Lymphatics: No lymphadenopathy identified by CT size criteria. Abdominal aorta is normal in caliber. Partially imaged right superficial femoral artery stent. Partially imaged mild overlying fat stranding with no fluid collections imaged. Prominent peripheral calcific atherosclerosis. Musculoskeletal: No concerning osseous lesion identified. Fluid / peritoneum: No significant free fluid. No free intraperitoneal air identified. IMPRESSION: 1. Mild diffuse wall thickening of the urinary bladder. Consider correlation for cystitis. 2. Trace bilateral pleural effusions. 3. Partially imaged right superficial femoral artery stent. 4. Prominent peripheral calcific atherosclerosis. EXAM DESCRIPTION: RAD - Chest Single View - 06/30/2021 10:58 pm CLINICAL HISTORY: FEVER Chest pain. COMPARISON: Chest Single View dated 03/31/2021; Chest Single View dated 02/17/2021; Chest Single View dated 10/10/2020; Chest Single View dated 09/30/2020 FINDINGS: Portable technique limits examination quality. Mild bilateral interstitial lung opacities are present suspicious for mild interstitial pulmonary edema or viral infection. The heart is upper limit of normal in size. Right-sided dialysis catheter is unchanged in position.Stent ma terial is present right subclavian region. Conclusions/Impression: ESRD -Acute HD Hyperkalemia -Acute HD -Renal diet HTN with CKD/ CHF -Hydralazine prn Diastolic CHF, A/C -Acute HD with UF Moderate malnutrition -Start Nepro Anemia in CKD Iron deficiency -Retacrit X1 CKD MBD -Start Vitamin D Thank you kindly for the consultation. Case reviewed with John Farrell.
[2021-07-01] MEDS: DOCUSATE NA 100 MG CAP PO SCH ×2 (21:00→22:06)
[2021-07-01] MEDS: NEPRO SHAKE 237 ML CAN PO SCH (22:07)
[2021-07-02] MEDS ORDERED: HYDROCODONE/CHLORPHEN 5 ML/OSYR PO PRN (02:23)
[2021-07-02 04:52] LABS: Hematocrit 25.5 % (36.0-45.0)
[2021-07-02 04:53] LABS: Absolute Lymphocytes (CBC) 0.7 K/uL (0.7-4.9); Lymphocytes % 22.4 % (15.3-44.8); MPV 10.6 fL (7.6-11.3)
[2021-07-02 05:34] LABS: Albumin 2.7 g/dL (3.4-5.0); Bilirubin Total 0.5 mg/dL (0.2-1.0); Ferritin 1409.8 ng/mL (8-388); Magnesium 1.9 mg/dL (1.8-2.4); Phosphorus 5.1 mg/dL (2.5-4.9); Potassium 4.2 mmol/L (3.5-5.1); Protein, Total 6.5 g/dL (6.4-8.2)
[2021-07-02 05:35] LABS: Thyroid Stimulating Hormone 5.68 uIU/mL (0.360-3.740)
[2021-07-02] MEDS: HYDROMORPHONE HCL 0.5 MG/0.5 ML INJ IV PRN (06:12)
[2021-07-02] MEDS: INSULIN -REGULAR HUMAN 50 UNIT/0.5 ML ML SQ SCH (07:30)
--- NOTE | 2021-07-02 07:50 | EKG ---
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
[2021-07-02] MEDS ORDERED: MULTIVITAMINS,THERAPEUT 1 TAB PO SCH (09:00)
[2021-07-02] MEDS ORDERED: EPOETIN ALFA 10,000 UNIT/ML VIAL SQ SCH (09:00)
[2021-07-02] MEDS ORDERED: CALCITROL 0.25 MCG CAP PO SCH (09:00)
[2021-07-02] MEDS ORDERED: VITAMIN D 5,000 UNIT CAP PO SCH (09:00)
[2021-07-02] MEDS: THIAMINE HCL 100 MG TABLET PO SCH (09:20)
[2021-07-02] MEDS: DOCUSATE NA 100 MG CAP PO SCH (09:20)
[2021-07-02] MEDS: ZINC SULFATE 220 MG CAP PO SCH (09:20)
[2021-07-02] MEDS: NEPRO SHAKE 237 ML CAN PO SCH (09:21)
[2021-07-02] MEDS: ASCORBIC ACID 500 MG TABLET PO SCH (09:21)
[2021-07-02] MEDS: ONDANSETRON 4 MG/2 ML VIAL IV PRN (09:41)
[2021-07-02 10:05] VITALS: O2SAT 98
[2021-07-02] MEDS ORDERED: METOCLOPRAMIDE 10 MG/2mL INJ IV SCH (11:00)
[2021-07-02 13:46] VITALS: BP 117/74; TEMP 97.3
--- NOTE | 2021-07-02 20:27 | P.PN ---
Date of Service: 07/02/21 Vital Signs Temp Pulse Resp BP Pulse Ox 97.3 F 80 18 117/74 99 07/02/21 12:00 07/02/21 12:00 07/02/21 12:00 07/02/21 12:00 07/02/21 12:00 Microbiology Results 06/30/21 21:05 Throat Culture & Sensitivity - Final NORMAL UPPER RESPIRATORY ABHISHEK GROWN. 06/30/21 21:05 Throat Group A Streptococcus Rapid Screen - Final Assessment/ Plan: Nephrology No dyspnea No chest pain N/V today. No acute events overnight Vitals, medications, blood work and imaging reviewed in the chart General: In no apparent distress, Oriented x3, Cooperative HEENT: Atraumatic Neck: Supple Respiratory: Normal air movement Cardiovascular: Normal pulses, Regular rate/rhythm, Edema Gastrointestinal: Soft and benign, Non-distended Musculoskeletal: No clubbing Integumentary: No rashes, No cyanosis Neurological: Normal speech Laboratory Data (last 24 hrs) 06/30/21 22:08: WBC 4.50, Hgb 8.7 L, Hct 26.1 L, Plt Count 82 L* 06/30/21 22:08: Sodium 138, Potassium 6.2 H*, BUN 59 H, Creatinine 8.81 H*, Glucose 90, Total Bilirubin 0.4, AST 18, ALT 16, Alkaline Phosphatase 59, Lipase 202 Imagings Data: EXAM DESCRIPTION: Abdomen Pelvis Wo Contrast RadLex: CT ABDOMEN PELVIS WITHOUT IV CONTRAST CLINICAL HISTORY: ABD PAIN. History of pseudoaneurysm surgery two weeks ago, wound pump, C-sections. COMPARISON: CT of the abdomen and pelvis without contrast from January 16, 2021. TECHNIQUE: Serial axial CT images were obtained from above the diaphragm through the pubic symphysis without administration of intravenous or oral contr ast. All CT scans are performed using dose optimization techniques as appropriate, including automated exposure control and/or standardized protocols, where dose is adjusted for indication for exam and body habitus. FINDINGS: Thoracic: Trace bilateral pleural effusions. Hepatobiliary: No obvious concerning hepatic lesion identified in the absence of intravenous contrast. The gallbladder is unremarkable. No biliary ductal dilatation. Pancreas: Unremarkable. Spleen: Unremarkable. Gastrointestinal: No evidence of bowel obstruction or perienteric inflammation. The appendix is normal. Adrenals: No abnormality identified in either adrenal gland. Renal: No obvious parenchymal abnormality in either kidney in the absence of intravenous contrast. No hydronephrosis or urolithiasis. Bladder/Reproductive: Mild diffuse wall thickening of the urinary bladder. Unremarkable CT appearance of the uterus and ovaries. Vascular/Lymphatics: No lymphadenopathy identified by CT size criteria. Abdominal aorta is normal in caliber. Partially imaged right superficial femoral artery stent. Partially imaged mild overlying fat stranding with no fluid collections imaged. Prominent peripheral calcific atherosclerosis. Musculoskeletal: No concerning osseous lesion identified. Fluid / peritoneum: No significant free fluid. No free intraperitoneal air identified. IMPRESSION: 1. Mild diffuse wall thickening of the urinary bladder. Consider correlation for cystitis. 2. Trace bilateral pleural effusions. 3. Partially imaged right superficial femoral artery stent. 4. Prominent peripheral calcific atherosclerosis. EXAM DESCRIPTION: RAD - Chest Single View - 06/30/2021 10:58 pm CLINICAL HISTORY: FEVER Chest pain. COMPARISON: Chest Single View dated 03/31/2021; Chest Single View dated 02/17/2021; Chest Single View dated 10/10/2020; Chest Single View dated 09/30/2020 FINDINGS: Portable technique limits examination quality. Mild bilateral interstitial lung opacities are present suspicious for mild interstitial pulmonary edema or viral infection. The heart is upper limit of normal in size. Right-sided dialysis catheter is unchanged in position.Stent material is present right subclavian region. Conclusions/Impression: ESRD -Acute HD Hyperkalemia -Acute HD -Renal diet HTN with CKD/ CHF -Hydralazine prn Diastolic CHF, A/C -Acute HD with UF DM II with CKD, Polyneuropathy & Gastroparesis -Reglan X1 -RISS Moderate malnutrition -Continue Nepro Anemia in CKD Iron deficiency -Retacrit prn CKD MBD -Continue Vitamin D
[2021-07-04 10:38] LABS: HBsAG Nonreactive (Nonreactive)
== END 2021-07-02 14:45 | disposition home or self-care (01) | DRG 177 ==
LOC: ER 16:43 → ERHOLD 07-01 02:47 → 4TH 07-01 20:04
PROVIDERS: ADMIT Hospitalist; ATTEND Hospitalist
PROC: 5A1D70Z Performance of Urinary Filtration, Intermittent, Less than 6 Hours Per Day (ICD-10-PCS; principal; 2021-07-01)
DX: U07.1 COVID-19 (principal); N18.6 End stage renal disease; I50.33 Acute on chronic diastolic (congestive) heart failure; I13.2 Hypertensive heart and chronic kidney disease with heart failure and with stage 5 chronic kidney disease, or end stage renal disease; E44.0 Moderate protein-calorie malnutrition; E11.22 Type 2 diabetes mellitus with diabetic chronic kidney disease; E11.42 Type 2 diabetes mellitus with diabetic polyneuropathy; E11.43 Type 2 diabetes mellitus with diabetic autonomic (poly)neuropathy; K31.84 Gastroparesis; D63.1 Anemia in chronic kidney disease; E87.5 Hyperkalemia; J44.9 Chronic obstructive pulmonary disease, unspecified; M89.9 Disorder of bone, unspecified; F17.210 Nicotine dependence, cigarettes, uncomplicated; Z88.5 Allergy status to narcotic agent; Z88.0 Allergy status to penicillin; Z99.2 Dependence on renal dialysis; Z88.8 Allergy status to other drugs, medicaments and biological substances; Z79.899 Other long term (current) drug therapy; Z98.51 Tubal ligation status; Z91.15 Patient's noncompliance with renal dialysis; Z68.32 Body mass index [BMI] 32.0-32.9, adult
CPT/HCPCS: 0240U; 36415; 71045; 74176; 80048; 80053; 80061; 80076; 82607; 82728; 82747; 82947; 83540; 83690; 83735; 84100; 84145; 84439; 84443; 84466; 85025; 86140; 86317; 87070; 87081; 87340; 90935; 93005; 94760; 96374; 96375; 99285; J0610; J1170; J1644; J2175; J2405; J2765; Q5105; Q9967

== ENCOUNTER 2021-07-30 18:37 | Observation (INO) | payer OTHER ==
--- OUTSIDE RECORDS SUMMARY | 2021-07-30 18:59 | XMS REPORT | Continuity of Care Document ---
:1980 Author Organization [facility] t Address [address] [place] [address] Care Team Providers Name Role Phone Nadiya Morin DO Primary Care Physician Kasey Ann RN Attending Clinician Anthony Attending Clinician Unavailable Shaggyzo_T Attending Clinician Unavailable Cathie Stewart MD Attending Clinician Vipin Dhaliwal MD Attending Clinician Ramírez Nagel MD Attending Clinician Kalen Mckenzie Attending Clinician Endy BURNS Attending Clinician Laquita Dodd Attending Clinician Donavon Diaz MD Attending Clinician Jose Carlos BURNS V. Attending Clinician Pati BURNS Attending Clinician Marquita Roach MD Attending Clinician Robert MAYS Attending Clinician Unavailable Jovanni Chowdhury MD Attending Clinician ParaEduin olivares Attending Clinician Adelita SAPP Attending Clinician Unavailable Ba Attending Clinician Unavailable Tam MAYS Attending Clinician Unavailable Ramana SAPP Attending Clinician Unavailable Sheikh KATY Attending Clinician Arvin Koch MD Attending Clinician Kendall Medina MD Attending Clinician Brisa JARRETT Attending Clinician Corin MAYS Attending Clinician Unavailable Doctor Unassigned, Name Attending Clinician Unavailable AYDEE Attending Clinician Unavailable Benedicto BURNS Attending Clinician SHERRILL PHILIPPE Attending Clinician Unavailable Lamin BURNS, K.H. Attending Clinician Carlos BURNS Attending Clinician Manuel Sanchez DO Attending Clinician Naun Cleaning DPM Attending Clinician LAMIN, K.H. Attending Clinician Unavailable Chivo Attending Clinician Unavailable Chivo Attending Clinician Unavailable HAWA BHAKTA Attending Clinician Unavailable Desbernardo_T Admitting Clinician Unavailable ANSHU Admitting Clinician Unavailable Ba Admitting Clinician Unavailable Admitting Clinician Unavailable SHERRILL PHILIPPE Admitting Clinician Unavailable Chivo Admitting Clinician Unavailable HAWA BHAKTA Admitting Clinician Unavailable Payers Payer Name Policy Type Policy Number Effective Date Expiration Date S [facility] [id number] 2021 (MEDICARE 00:00:00 REPLACEMENT HMO) Advance Directives Directive Decision Effective Termination Comments Source Date Date Healthcare Agents on N/A [facility] FileNameRelationshY[facility] Agent Medical RelationshipCommunicationShriners Hospitals For Children - [facility] FoundSibling3 - First Alternate Agent (Medical Power of Lab Animal Technologist) Problems Condition Condition Condition Status Onset Resolution Last Treating Co mments Source Name Details Category Date Date Treatment Clinician Date AVF AVF Disease Active Univers (arteriove (arteriove 9 it y of nous nous 00:00: [place] fistula) fistula) 00 Medica l Branch End stage End stage Disease Active [place] renal renal 7-16 Health failure on failure on 00:00: dialysis dialysis 00 Diabetes Diabetes Disease Active [facility] mellitus mellitus 7-16 Health with with 00:00: gastropare gastropare 00 sis sis Essential Essential Disease Active [facility] hypertensi hypertensi 16 He alth on on 00:00: 00 Irritable Irritable Disease Active [facility] bowel bowel 01-03 Health syndrome syndrome 00:00: (IBS) (IBS) 00 GASTROPARE Diagnosis Active 2021-02-10 Memoria HELENA/IBS-D 7 21:41:00 l /ANEMIA 00:00: [place] GASTROPARE 00 HELENA/IBS-D /ANEMIA Active 01/03/2021 [facility] NEW Diagnosis Active 2020-12-24 Mem oria PATIENT GI 4-26 10:39:00 l CONSULT NEW 00:00: [place] REFRACTORY PATIENT GI 00 GASTRO CONSULT REFRACTORY GASTRO Active 10/14/2020 [facility] Malfunctio Malfunctio Disease Active Overview : Univers n of n of 6-03 Formattin ity of arterioven arterioven 00:00: g of this [place] ous ous 00 note Medical dialysis dialysis might be Bran ch fistula, fistula, different initial initial from the encounter encounter original. Added automatic ally from request for surgery [id number] Candidiasi Candidiasi Disease Active U nivers s of vulva s of vulva 2-18 it y of and vagina and [place] Screening Screening Disease Active Uni vers for breast for breast 2-18 it y of cancer cancer 00:00: [place] 00 Medical Branch NEW Diagnosis Active 2018-07-26 Mem oria EVALUATION - 09:39:00 l NEW 00:00: [place] EVALUATION 00 Active 07/12/2018 [facility] Pyogenic Pyogenic Disease Active 2017-06 Overview: Un lori granuloma granuloma 0-17 Formattin i ty of of of 00:00: g of this [place] conjunctiv conjunctiv 00 note Me dical a, right a, right might be Bran ch different from the original. Added automatic ally from request for surgery [id number] Right eye Right eye Disease Active Overview: Univers affected affected 02-22 Formattin ity of by by 00:00: g of this [place] proliferat proliferat 00 note Me dical montse montse might be Branch diabetic diabetic different retinopath retinopath from the y with y with original. 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 Eviscerat ion OS on 8 - Dr. 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 Added automatic ally from request for surgery [id number] ESRD (end ESRD (end Disease Active Overview: Univers stage stage 6-12 Formattin ity of renal renal 00:00: g of this [place] disease) disease) 00 note Medica l on on might be Branch dialysis dialysis different from the original. Added automatic ally from request for surgery [id number] Diabetes Diabetes Disease Active Metho di mellitus mellitus 11-12 st 00:00: Hospita 00 l LUQ pain LUQ pain Disease Active Unive rs 2-05 ity of 00:00: [place] 00 Medical Branch Glaucoma Glaucoma Disease Active Overview: Un lori due to due to 07-22 Formattin ity of silicone silicone 00:00: g of this Baljinder as oil oil 00 note Medical might be Branch different from the original. Added automatic ally from request for surgery [id number] Neovascula Neovascula Disease Active 2018-0 U nivers r r 1-18 ity of glaucoma, glaucoma, 00:[place] left [place] left eye 00 Medica l Branch Increased Increased Disease Active Uni vers intraocula intraocula 1-18 it y of r pressure r pressure [place] Fall Fall Disease Active 2016-06 Univers 0-13 ity of 00:00: [place] 00 Medical Branch Pneumonia Pneumonia Disease Active 2016-06 Uni vers 0-11 ity of 00:00: [place] [facility] Diabetes Diabetes Disease Active 2016-06 Overview: Un lori mellitus mellitus 0-05 Formattin ity of 00:00: g of this [place] 00 note Medical might be Branch different from the original. Added automatic ally from request for surgery [id number] Pseudotumo Pseudotumo Disease Active U nivers r cerebri r cerebri 9-25 ity of 00:00: [place] 00 [facility] Branch Liver Liver Disease Active [facility] [...] Acute Disease Active [facility] encephalop encephalop 16 Pati kes - athy athy 00:00: Medical [...] disorder [facility]03 [facility] Hypertensi Hypertensi Disease Active [facility] ve ve 7[facility]16 [facility] - emergency emergency 00:[facility]: [facility] Peripheral Peripheral Disease Active U viviana neuropathy neuropathy 7-16 it y of 00:00: [place] [id number] Medical Branch ACUTE RESP Diagnosis Active 2016-09-09 Memoria FAILURE 2- 09:11:00 l ACUTE 00:00: Vin RESP 00 FAILURE Active 07/23/2016 [facility] CONGESTION Diagnosis Active 2016-07-24 Memoria AMD 2- 01:49:00 l DIARRHEA 00:00: [place] CONGESTION 00 AMD DIARRHEA Active 07/23/2016 [facility] Congestive Congestive Disease Active 2015-06 U T heart heart - Health failure failure 00:00: (CHF) (CHF) 00 SOB/SWELLI Diagnosis Active 2015-062016-06-10 [facility] NG 2- 15:48:00 l 00:00: [place] SOB/SWELLI 00 NG Active 6 [facility] CHF/RENAL Diagnosis Active 2015-062016-06-24 Memoria DISEASE 2- 15:35:00 l 00:00: [place] CHF/RENAL 00 DISEASE Active 06/10/2016 [facility] Obesity Obesity Disease Active 2015-06 Univers (BMI (BMI 0-12 ity of 30-39.9) 30-39.9) 00:00: [place] [address] Medical Branch Hyperosmol Hyperosmol Disease Active 2015-06 U viviana ar ar 0-12 ity of non-ketoti non-ketoti 00:00[place] c state in c state in 00 Me dical patient patient Branch with 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 Hyperglyce Hyperglyce Disease Active 2015-06 U [place]iana maryam maryam 0-11 ity of 00:00: [place] [address] Medical Branch Diabetic Diabetic Disease Active Unive rs ulcer of ulcer of 5-07 ity of both feet both feet 00:00: Amisha lombardo associated associated 00 Me dical with type with type Bran ch 2 diabetes 2 diabetes mellitus mellitus SANJUANA (acute SANJUANA (acute Disease Active U viviana kidney kidney 5-07 ity of injury) injury) 00:00: [place] [address] Medical Branch Depression Depression Disease Active U viviana 5-07 ity of 00:00: [place] 00 Medical Branch Bipolar 1 Bipolar 1 Disease Active Uni vers disorder disorder 5-07 ity of 00:00: [place] [facility] Suicidal Suicidal Disease Active Unive rs ideation ideation 5-05 ity of 00:00: [place] 00 Medical Branch 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, 1.5, 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 Medical Branch Hematuria, Hematuria, Disease Active U jessicaers undiagnose undiagnose 2-16 it y of d cause d cause 00:00: [place] 00 Medical Branch Cystitis Cystitis Disease Active 2014-06 Unive rs with with 1-17 ity of hematuria hematuria 00:[place] Essential Essential Disease Active 2014-06 Uni vers hypertensi hypertensi 1-13 it y of on, benign on, benign 00:[place] Family Family Disease Active 2014-06 Univers history of history of 1-13 it y of breast breast 00:00: [place] cancer in cancer in 00 [facility] female female Branch Family Family Disease [...] Memoria PAIN, 1-06 05:44:00 l SEIZURES 00:00: [place] ABDOMINAL 00 PAIN, SEIZURES Active 06/26/2013 [facility] ABD PAIN Diagnosis Active 2012-062013-04-19 M emoria 0- 21:51:00 l ABD PAIN 19:00: Jake n 00 Active 04/14/2013 [place] GASTROPERI Diagnosis Active 2012-09-13 Memoria SIS 2-12 15:17:00 l 00:00: [place] GASTROPERI 00 SIS Active 08/02/2012 [facility] ABDOMINAL Diagnosis Active 2012-03-14 Memoria PAIN 03-14 16:56:00 l 14:00: [place] ABDOMINAL 00 PAIN Active 03/14/2012 [facility] NAUSEA, Diagnosis Active 2012-03-14 Me moria VOMITING 03-14 13:25:00 l NAUSEA, 08:00: [place] VOMITING 00 Active 03/14/2012 [facility] N/V Diagnosis Active 2011-12-08 Mem oria INABILITY 11-27 11:14:00 l TO N/V 00:00: [place] TOLERATE INABILITY 00 PO TO TOLERATE PO Active 2 [facility] VOMITTING Diagnosis Active 2011-11-28 Memoria 11-27 16:28:00 l 00:00: [place] VOMITTING 00 Active 11/28/2011 [facility] VOMITTING, Diagnosis Active 2011-09-18 [facility] HIGH BLOOD 09-17 09:45:00 l SUGAR 00:00: [place] VOMITTING, 00 HIGH BLOOD SUGAR Active 09/18/2011 [facility] Methicilli Problem Active 2021-01-31 M emoria n 08-31 22:29:25 l resistant 00:00: [place] Staphyloco Methicilli 00 ccus n aureus resistant (organism) Staphyloco ccus aureus (organism) Active 09/01/2011 Problem 01/31/2021 09/01/11 - Elbow woundProbl em added by Discern Expert. [facility] MRSA Problem Active 2012-03-16 Memor ia - 09:11:30 l MRSA 00:00: [place] 00 Active 09/01/2011 Problem 03/16/2012 - Elbow [id number] emily added by Discern Expert. [facility] VOMITING, Diagnosis Active 2011-09-01 Memoria BLOOD 08-30 03:19:00 l SUGAR 00:00: [place] READINGS VOMITING, 00 HIGH BLOOD SUGAR READINGS HIGH Active 08/31/2011 [facility] ELBOW Diagnosis Active 2011-09-10 Mem oria ABSCESS/HY 08-30 16:26:00 l PERGLYCEMI ELBOW 00:00: Nidia nn A ABSCESS/HY 00 PERGLYCEMI A Active 08/31/2011 [facility] Hypokalemi Problem Active 2012-03-16 M emoria a 3-04 09:11:30 l 00:00: [place] Hypokalemi 00 a Active 08/23/2011 Problem 03/16/2012 [facility] DKA Diagnosis Active 2011-08-24 Mem oria 11:27:00 l DKA 00:00: [place] 00 Active 08/19/2011 [facility] VOMITING Diagnosis Active 2011-08-19 M emoria 16:21:00 l VOMITING 00:00: Jake n 00 Active 08/19/2011 [facility] Final: Problem 2016-08-02 Memor ia Acute 02:46:22 l respirator Final: Herm naeem y failure, Acute unspecifie respirator d whether y failure, with unspecifie hypoxia or d whether hypercapni with a hypoxia or hypercapni a 08/02/2016 [facility] Hypoglycem Problem Inactiv 2012-03-16 Memoria ia e 09:11:30 l [place] Hypoglycem ia Inactive Problem 03/16/2012 [facility] Hypoglycem Problem Inactiv 2013-04-22 Memoria ia e 04:46:33 l (disorder) Jake n Hypoglycem ia (disorder) Inactive Problem 04/22/2013 [facility] Gastropare Problem Resolve 2021-01-31 Memoria sis d 22:29:25 l (disorder) Jake gonzalez Gastropare sis (disorder) Resolved Problem 01/31/2021 [facility] Hypertensi Problem Resolve 2021-01-31 Memoria ve d 22:29:25 l disorder, [place] systemic Hypertensi arterial ve (disorder) disorder, systemic arterial (disorder) Resolved Problem 01/31/2021 [facility] Psychiatri Problem Resolve 2021-01-31 Memoria c d 22:29:25 l behavioral Jake n disability Psychiatri (finding) c behavioral disability (finding) Resolved Problem 01/31/2021 [facility] Seizure Problem Resolve 2021-01-31 Mem oria (finding) d 22:29:25 l Seizure Vin (finding) Resolved Problem 01/31/2021 [facility] Hypertensi Problem Active 2012-03-16 M emoria on 09:11:30 l [place] Hypertensi on Active Problem [facility] Hypomagnes Problem Active 2013-04-22 M emoria emia 04:46:33 l [place] Hypomagnes emia Active Problem 04/22/2013 [facility] Nausea and Problem Active 2012-03-16 M emoria vomiting 09:11:30 l Nausea [place] and vomiting Active Problem 03/16/2012 [facility] ENCNTR FOR Diagnosis Active 2020-12-24 Memoria GENERAL 10:39:00 l ADULT ENCNTR [place] MEDICAL FOR EXAM W/ GENERAL ADULT MEDICAL EXAM W/ Active [facility] DMI Diagnosis Active 2011-08-24 Mem oria KETOACD 11:27:00 l UNCONTROLD DMI Jake n KETOACD UNCONTROLD Active [facility] OTHER Diagnosis Active 2011-09-10 Mem oria GENERAL 16:26:00 l SYMPTOMS OTHER [place] GENERAL SYMPTOMS Active [facility] HEART Diagnosis Active 2016-06-24 Mem oria FAILURE, 15:35:00 l UNSPECIFIE HEART Nidia nn D FAILURE, UNSPECIFIE D Active [facility] ACUTE Diagnosis Active 2016-09-09 Mem oria RESPIRATOR 09:11:00 l Y FAILURE, ACUTE Nidia nn UNSP W RESPIRATOR HYPOXI Y FAILURE, UNSP W HYPOXI Active [facility] Nausea and Problem Resolve 2021-01-31 2021-01-31 Memoria vomiting d 6-10 22:29:25 22:29:25 l (disorder) Nausea 00:00: Herm naeem and 00 vomiting (disorder) Resolved 11/29/2011 Problem 01/31/2021 [facility] Hypokalemi Problem Resolve 2021-01-31 2021-01-31 Memoria a d 3-04 22:29:25 22:29:25 l (disorder) 00:00: Jake n Hypokalemi 00 a (disorder) Resolved 08/23/2011 Problem 01/31/2021 [facility] Disorder Problem Resolve 2021-01-31 2021-01-31 Memoria of d 3-04 22:29:25 22:29:25 l magnesium Disorder 00:00: Her braden metabolism of 00 (disorder) magnesium metabolism (disorder) Resolved 08/23/2011 Problem 01/31/2021 [facility] Hyperglyce Problem Resolve 2021-01-31 2021-01-31 Memoria maryam d 3 22:29:25 22:29:25 l (disorder) 00:00: [place] n Hyperglyce 00 maryam (disorder) Resolved 08/20/2011 Problem 01/31/2021 [facility] Ketoacidos Problem Resolve 2021-01-31 2021-01-31 Memoria is in d 22:29:25 22:29:25 l diabetes 00:00: [place] mellitus Ketoacidos 00 (disorder) is in diabetes mellitus (disorder) Resolved 08/19/2011 Problem 01/31/2021 [facility] DKA Problem Resolve 2013-04-22 2013-04-22 Memoria (diabetic d 04:46:33 04:46:33 l ketoacidos DKA 00:00: Jake gonzalez es) (diabetic 00 ketoacidos es) Resolved 08/19/2011 Problem 04/22/2013 [facility] History of Past Illness Condition Condition Condition Status Onset Resolution Last Treating Co mments Source Name Details Category Date Date Treatment Clinician Date Discharge Problem 2014-06-28 2014-06-28 Memoria Diagnosis: 1-06 16:34:37 16:34:37 l Gastropare 06:00: Jake n sis Discharge 00 Diagnosis: Gastropare sis 06/26/2014 06/28/2014 [facility] Hyperglyce Problem Inactiv 2012-03-16 2012-03-16 Memoria maryam e 3- 09:11:30 09:11:30 l 00:00: [place] Hyperglyce 00 maryam Inactive 08/20/2011 Problem 03/16/2012 [facility] Allergies, Adverse Reactions, Alerts Allergy Allergy Status Severity Reaction(s) Onset Inactive Treating Comm ents Source Name Type Date Date Clinician Lactose Propensi Active GI 2020-06 Methodi ty to Intolerance 2- st adverse 00:00: Hospita reaction 00 l s to drug Iodinate Propensi Active Other (See 2020-06 Per Me thodi d ty to Comments) 2-[address] Contrast adverse 00:00: she has Hospit a Media reaction 00 bad l s to cramps drug all over Dm-Pot Propensi Active Other (See 2020-06 Meth frantz Guaiacol ty to Comments) 1-24 st sulfonat adverse 00:00: Hospita e reaction 00 l s to drug Morphine Propensi Active Shortness of Univers ty to Breath 03-19 ity of adverse 00:00: [place] reaction 00 Medical s Branch MORPHINE DRUG Active ITCHING Univers INGREDI 03-19 ity of 00:00: [place] 00 Medical Branch Morphine Propensi Active Shortness Of itchy Methodi ty to Breath 4-13 st adverse 00:00: Hospita reaction 00 l s to drug Cephalex Propensi Active Hives Univer s in ty to 01-18 ity of adverse 00:00: [place] reaction 00 Medical s Branch CEPHALEX DRUG Active Hives Univers IN INGREDI 01-18 ity of 00:00: [place] 00 Medical Branch Cephalex Propensi Active Hives 2017- Method i in ty to 01-18 st adverse 00:00: Hospita reaction 00 l s to drug Cephalex Allergy Active Hives 2017- [place] in to 01-18 Health substanc 00:00: e 00 ADHESIVE DRUG Active Med Rash 2016-06 Univers TAPE-KERLINE 2-14 ity of ICONES 00:00: [place] 00 Medical Branch Adhesive Propensi Active Swelling 2016-06 Tears off M ethodi Tape-Kerline ty to 2-[address] icones adverse 00:00: Hospita reaction 00 l s to drug Adhesive Drug Active Swelling 2016-06 UT Tape Allergy 2-14 Health 00:00: 00 Nitrofur Propensi Active Other - See Reports Univers antoin ty to comments 03-19 transient ity o f adverse 00:00: liver [place] reaction 00 disease Medical s with Branch nitrofura ntoin NITROFUR DRUG Active Other-Cmnt Univ ers ANTOIN INGREDI 03-19 ity of 00:00: [place] 00 Medical Branch Nitrofur Allergy Active Anaphylaxis Other UT antoin to 01-03 reaction( Health substanc 00:00: s): liver e 00 failure, Other (see comments) , Other - See commentsL iver failure Reports transient liver disease with nitrofura ntoinRepo rts transient liver disease with nitrofura ntoinLive r failure Reports transient liver disease with nitrofura ntoinLive r failure Liver failure Guaifene Propensi Active Other - See numbness Univers sin ty to comments 01-03 ity of adverse 00:00: [place] reaction 00 Medical s Branch GUAIFENE DRUG Active Other-Cmnt Univ ers SIN INGREDI 01-03 ity of 00:00: [place] 00 Medical Branch Zolpidem Drug Active Other (See confusion C [...] 01-03 [facility] Nitrofur Propensi Active Other (See Other Me thodi antoin ty to Comments) 01-03 reaction( st adverse 00:00: s): liver Hospit a reaction 00 failure, l s to Other drug (see comments) , Other - See commentsL iver failure Reports transient liver disease with nitrofura ntoinRepo rts transient liver disease with nitrofura ntoinLive r failure Reports transient liver disease with nitrofura ntoinLive r failure Liver failure Reports transient liver disease with nitrofura ntoinLive r failure Reports transient liver disease with nitrofura ntoin Ketorola Allergy Active Swelling throatthr UT c to 6 oatthroat Health Trometha substanc 00:00: mine e 00 KETOROLA DRUG Active High Swelling Univer s C INGREDI 6 ity of TROMETHA 00:00: [place] MINE 00 Medical Branch Ketorola Propensi Active Swelling THROAT Meth frantz c ty to 12-13 st Trometha adverse 00:00: Hospita mine reaction 00 l s to drug Phenylep Allergy Active Other UT hrine to 10-17 reaction( Health substanc 00:00: s): Hives e 00 Fluphena Allergy Active Other UT zine to 10-17 reaction( Health substanc 00:00: s): ARM e 00 NUMBNESS Fluphena Propensi Active Other (See Other Me thodi zine ty to Comments) 4 reaction( st adverse 00:00: s): ARM Hospita reaction 00 NUMBNESS l s to drug Phenylep Propensi Active Hives Other Method i hrine ty to 10-17 reaction( st adverse 00:00: s): Hives Hospit a reaction 00 l s to drug Lisinopr Propensi Active Other - See 2015-06 angioede m Univers il ty to comments 0-11 a ity of adverse 00:00: [place] reaction 00 Medical s Branch LISINOPR DRUG Active Other-Cmnt 2015-06 Univ ers [place] INGREDI 0-11 ity of 00:00: [place] 00 Medical Branch Lisinopr Propensi Active Other (See 2015-06 Tongue Me thodi il ty to Comments) [address] adverse 00:00: acial Hospita reaction 00 droopingO l s to ther drug reaction( s): Anaphylax is, angioedem a, Other (See Comments) , Other (See Comments) , Other (see comments) , Other (See Comments) , Other - See commentsU nable to rememberT ongue swellingF acial droopinga ngioedema angioedem aUnable to rememberU nable to rememberU nable to remembera ngioedema Zolpidem Propensi Active Other - See Sleep U nivers Tartrate ty to comments 06-23 walking ity o f adverse 00:00: [place] reaction 00 Medical s to Branch drug ZOLPIDEM DRUG Active Med Other-Cmnt Univ ers TARTRATE INGREDI 06-23 ity of 00:00: [place] 00 Medical Branch Zolpidem Propensi Active Other (See forgetful Methodi ty to Comments) 06-[address] adverse 00:00: reaction( Hospit a reaction 00 s): l s to Itching/H drug anoop/Rash , Other (See Comments) , Other (see comments) , Other (See Comments) , Other (See Comments) , Other - See commentsc onfusionf orgetfulS leep walkingSl eep walkingco nfusionco nfusionco nfusionSl eep walking Codeine Propensi Active Other (See Other Met hodi ty to Comments) 01-13 reaction( st adverse 00:00: s): Other Hospit a reaction 00 (see l s to comments) drug Hydrocod Propensi Active Other (See Me thodi one-Pota ty to Comments) 01-13 st ssium adverse 00:00: Hospita Guai[place] reaction 00 l s to drug Guaifene Allergy Active Hives Other [facility] sin to 12-30 reaction( Health substanc 00:00: s): Other e 00 (See Comments) , Other (see comments) , Other (See Comments) , Other (See Comments) , Other - See commentsn umbnessnu mbnessnum bnessnumb nessnumbn essnumbne ssnumbnes s PROLEX DRUG Active Other-Cmnt Univer s 12-30 ity of 00:00: [place] 00 Medical Branch Guaifene Propensi Active Other (See Other Me thodi sin ty to Comments) 12-30 reaction( st adverse 00:00: s): Other Hospit a reaction 00 (See l s to Comments) drug , Other (see comments) , Other (See Comments) , Other (See Comments) , Other - See commentsn umbness Prolex Propensi Active Other (See Meth frantz ty to Comments) 12-30 st adverse 00:00: Hospita reaction 00 l s to drug Penicill Allergy Active Shortness of 2010-06 Other U T ins to breath 08-17 reaction( Health substanc 00:00: s): e 00 HivesAirw ay closure Penicill Propensi Active Anaphylaxis 2010-06 U nivers ins ty to 08-17 ity of adverse 00:00: [place] reaction 00 Medical s Branch PENICILL Drug Active Anaphylaxis 2010-06 Uni vers INS Class 08-17 ity of 00:00: [place] 00 Medical Branch Penicill Propensi Active Shortness Of 2010-06 Airway Methodi ins ty to Breath 2-[address] adverse 00:00: her [facility]osp[facility] reaction 00 reaction( l s to s): drug HivesAirw ay closure penicill penicill Active Memori a ins ins l Vin codeine codeine Active Memoria l Vin morphine morphine Active Memori a l [place] lisinopr lisinopr Active Memori a il il l [place] Adhesive Adhesive Active Memori a Tape Tape l Vin Ambien Ambien Active Memoria l [place] Prolex Prolex Active Memoria DM DM l Vin penicill Drug Active [facility] lisinopr Drug Active [facility] Ambien Drug Active [facility] Prolixin Drug Active [facility] penicill Drug Active [facility] lisinopr Drug Active [facility] Ambien Drug Active [facility] Prolixin Drug Active [facility] Tape Other Active [facility] penicill Drug Active [facility] lisinopr Drug Active [facility] Ambien Drug Active [facility] Prolixin Drug Active [facility] codeine Drug Active [facility] penicill Drug Active [facility] lisin[facility] Drug Active [facility] Ambien Drug Active [facility] Prolixin Drug Active [facility] codeine Drug Active [facility] penicill Drug Active [facility] lisin[facility]r Drug Active [facility] Ambien Drug Active [facility] Prolixin Drug Active [facility] penicill Drug Active [facility] lisinopr Drug Active [facility] Ambien Drug Active [facility] Prolixin Drug Active [facility] penicill Drug Active [facility] lisinopr Drug Active [facility] Ambien Drug Active [facility] Prolixin Drug Active [facility] Social History Social Habit Start Date Stop Date Quantity Comments Source History of tobacco Cigarette Smoker [facility] Exposure to Yes [facility] SARS-CoV-2 (event) Hospit al Alcohol intake 2021-06-18 2021-06-18 Ex-drinker [facility] 00:00:00 00:00:00 (finding) Hospital Cigarettes smoked 2021-05-14 2021-05-14 [facility] current (pack per 00:00:00 00:00:00 Hospita l day) - Reported Cigarette 2021-05-14 2021-05-14 [facility] pack-years 00:00:00 00:00:00 Hospital Tobacco use and 2021-05-14 2021-05-14 Smokeless tobacco [facility] exposure 00:00:00 00:00:00 non-user Hospital Social History 2020-12-24 2020-12-24 [facility] fatou 15:49:37 15:49:37 Tobacco Comment 2017-11-12 2017-11-12 5 cigarettes per [facility] 00:00:00 00:00:00 day Hospital Sex Assigned At [birth year] [facility] 00:00:00 00:00:00 Hospital Smoking Status Start Date Stop Date Source Smokes tobacco daily 2021-05-14 00:00:00 [facility] Former smoker 2020-06-27 00:00:00 2020-06-27 00:00:00 [facility] Medications Ordered Filled Start Stop Current Ordering Indication Dosage Frequency Signature Comments Components Source Medication Medication Date Date Medication? Clinician (SIG) Name Name glipiZIDE Yes 5mg Take 5 mg Met hodi (GLUCOTROL) 1-[address] 5 MG tablet 13:02: daily. Hosp jo-ann 39 l calcium Yes 667mg Q.[id number] Take 667 Methodi acetate 1-[id number] (PHOSLO) 13:02: 3D mouth 3 Hospit a 667 mg 39 (three) l capsule times a day with meals. Takes 7 pills with every meal and snack. Patient States meal or snack per day. sertraline Yes 50mg QD Take 50 mg M ethodi (ZOLOFT) 50 1-[address] MG tablet 13:02: daily. Hospit a 39 l furosemide Yes 80mg Q.5D Take 80 mg M ethodi (LASIX) 80 1-[address] mg tablet 13:02: (two) Hospita 39 times a l day. folic 2021-0 Yes 800mg Take 800 Methodi acid/vit B 1-[address] complex and 13:02: mouth Hospi ta C 39 daily. l (DIALYVITE 800 ORAL) cyanocobala 2021-0 Yes 1000ug Q.5D Take 1,000 Methodi min 1-[address] (VITAMIN 13:02: mouth 2 Hospit a B-12) 1000 39 (two) l MCG tablet times a day. doxazosin 2021-0 Yes 4mg QD Take 4 mg Met hodi (CARDURA) 4 1-[address] MG tablet 13:02: nightly. Hosp jo-ann 39 l cholecalcif 2021-0 Yes 5000U Take 5,000 Methodi mansi, 1-[address] vitamin D3, 13:02: mouth Hospi ta (VITAMIN 39 daily. l D3) 5,000 unit tablet metoprolol 2021-0 Yes 50mg QD Take 50 mg M ethodi succinate 1-[address] XL 13:02: daily. Hospita (TOPROL-XL) 39 l 50 mg 24 hr tablet divalproex 2021-0 Yes 500mg Q.5D Take 500 Me thodi (DEPAKOTE) 1-[address] 500 MG EC 13:02: mouth 2 Hospi ta tablet 39 (two) l times a day. pravastatin 2021-0 Yes 40mg QD Take 40 mg Methodi (PRAVACHOL) 1-[address] 40 MG 13:02: daily. Hospita tablet 39 l busPIRone 2021-0 Yes 15mg Q.5D Take 15 mg Me thodi (BUSPAR) 1-[address] 7.5 MG 13:02: (two) Hospita tablet 39 times a l day. 2 traZODone 2021-0 Yes 150mg QD Take 150 Met hodi (DESYREL) 1-[address] 150 MG 13:02: mouth Hospita tablet 39 nightly. l calcium 2021-0 Yes 1334mg Q.[id number] Take 1,334 Methodi acetate,domingo 1-18 [id number] mg by s t sphat bind, 13:02: 3D mouth 3 Hos whit (Phoslyra) 39 (three) l 667 mg (169 times a mg day. calcium)/5 mL solution cyproheptad Yes 4mg Q.[id number] Take 4 mg Methodi ine -18 [id number] (PERIACTIN) 13:02: 3D (three) Hos whit 4 mg tablet 39 times a l day as needed for allergies. buPROPion Yes 300mg QD Take 300 Met hodi XL 1-[address] (WELLBUTRIN 13:02: mouth Hospi ta XL) 300 MG 39 daily. l 24 hr tablet ascorbic Yes 500mg Q.[id number] Take 500 Methodi acid, -[id number] vitamin C, 13:02: 3D mouth 3 Hosp jo-ann (ascorbic 39 (three) l acid with times a sia hips) day. 500 MG tablet clonAZEPAM Yes .5mg Take 0.5 Met hodi (KlonoPIN) 1-[address] 0.5 MG 13:02: mouth as Hospita tablet 39 needed for l anxiety. apixaban 2020-06- No 10mg Q.5D Take 10 mg Me thodi (ELIQUIS) 5 06-18 by mouth 2 s t mg tablet 18:13: 00:00 (two) Hospit a 51 :00 times a l day. Takes 10 mg in morning and 5 mg at night vancomycin 2020-06- No 750mg Q.[id number] Infuse 750 Methodi 750 mg in 07-08 [id number] mg into a [address] sodium 00:00: 05:59 3W venous Hospita chloride 00 :00 catheter 3 l 0.9% 250 mL (three) IVPB times a week for 19 days. Administer 3 times weekly in dialysis HYDROcodone 2020-06- [place] [id number] 1{tbl} Q6H Take 1 Methodi -acetaminop 06-[address] sherrie (NORCO) 00:00: 05:59 mouth Hosp jo-ann 5-325 mg 00 :00 every 6 l per tablet (six) hours as needed for severe pain for up to 5 days .acute pain. Max Daily Amount: 4 tablets spironolact 2020-06 No 50mg QD Take 50 mg Methodi one 216 12-[address] (ALDACTONE) 10:21: 00:00 daily. Hos whit 50 MG 19 :00 l tablet clopidogreL 2020-06 75mg QD Take 1 Met hodi (PLAVIX) 75 07-27-06 tablet (75 s t mg tablet 00:00: 05:59 mg total) Ho spita 00 :00 by mouth l daily for 30 days. gabapentin 2020-06 300mg QD Take 1 Met hodi (NEURONTIN) 2- capsule st 300 mg 00:00: 05:59 (300 mg Hospita capsule 00 :00 total) by l mouth daily for 30 days. sennosides- 2020-06 1{tbl} QD Take 1 M ethodi docusate 07-[address] sodium 00:00: 05:59 mouth Hospita (SENOKOT-S) 00 :00 nightly l 8.6-50 mg for 30 per tablet days. HYDROcodone 2020-06 No [id number] 2{tbl} Q8H Take 2 Methodi -acetaminop 07-26 12-13 tablets by s t hen (NORCO) 00:00: 05:59 mouth Hosp jo-ann 5-325 mg 00 :00 every 8 l per tablet (eight) hours as needed for severe pain for up to 7 days .acute pain. Max Daily Amount: 6 tablets predniSONE 2020-06- No [id number] Take M ethodi (DELTASONE) 07-18-05 Prednisone s t 50 mg 00:00: 00:00 50mg 13 Hospita tablet 00 :00 hours, 7 l hours, and 1 hour prior to scheduled procedure on 05/19/2021 for contrast allergy prophylaxi s. linaGLIPtin 2020-06 No 5mg QD Take 5 mg Methodi (TRADJENTA) 1-24 11-[address] 5 mg tablet 15:20: 00:00 daily. Hos whit 30 :00 l buPROPion 2020-06- No 150mg Take 150 Me thodi SR 1-24 11-[address] (WELLBUTRIN 15:19: 00:00 mouth Hosp jo-ann SR) 150 MG 17 :00 daily. l 12 hr tablet pantoprazol 2020-06 Yes 20mg Take 20 mg Univers e 0-03 by mouth ity of (PROTONIX) 11:08: daily. [place] 20 mg EC 01 Medical tablet Branch Cholecalcif 2020-06 Yes 5000U Take 5,000 Univers mansi, 0-03 Units by ity of Vitamin D3, 11:08: mouth. [place] 125 mcg Medical (5,000 Branch unit) tablet proMETHazin 2020-06 Yes 25mg Take 25 mg Univers e 25 mg 0-03 by mouth. ity of tablet 11:08: [place] [address] Medical Branch aspirin 81 2020-06 Yes 81mg Take 1 Unive rs mg chewable 0-03 tablet by ity of tablet 11:08: mouth [place] [address] daily. Medical Branch divalproex 2020-06 Yes 500mg Take 500 Un lori ER 0-01 mg by ity of (DEPAKOTE 23:08: mouth 2 [place] ER) 500 mg 36 (two) Medical 24 hr times Branch tablet daily. gabapentin 2020-06 Yes 100mg Take 100 Un lori 100 mg 0-01 mg by ity of capsule 23:08: mouth 2 [place] [address] (two) Medical times Branch daily. vitamin C 2020-06 Yes 2000mg Take 2,000 Univers with sia 0-01 mg by ity of hips 23:08: mouth 2 [place] (VITAMIN C) 36 (two) Medical 1,000 mg times Branch tablet daily. metoprolol 2020-06 Yes 50mg Take 50 mg U nivers tartrate 50 0-01 by mouth ity of mg tablet 23:08: daily. [address] Branch folic 2020-06 Yes 800mg Take 800 Univers acid/vit B 0-01 mg by ity of complex and 23:08: mouth [place] C 36 daily. Medical (DIALYVITE Branch 800 ORAL) linagliptin 2020-06 Yes Take by Un lori (TRADJENTA) 0-01 mouth. ity of 5 mg tablet 23:08: [address] Branch spironolact 2020-06 Yes 50mg Take 50 mg Univers one 50 mg 0-01 by mouth ity of tablet 23:08: daily. [address] Branch pravastatin 2020-06 Yes 40mg Take 40 mg Univers 40 mg 0-01 by mouth ity of tablet 23:08: daily. [place] 36 Medical Branch mv-mn/iron/ 2020-06 Yes 1{capsu Take 1 U nivers folic 0-01 le} capsule by ity of acid/herb 23:08: mouth [place] 190 36 daily. Medical (VITAMIN D3 Branch COMPLETE ORAL) SERTraline 2020-06 Yes 50mg Take 50 mg U nivers 50 mg 0-01 by mouth ity of tablet 23:08: daily. [place] [address] Medical Branch calcium 2020-06 Yes 667mg Take 667 Unive rs acetate 667 0-01 mg by ity of mg capsule 23:08: mouth 3 [place] (three) Medical times Branch daily with meals. cetirizine 2020-06 Yes 1{tbl} Take 1 Uni vers HCl/pseudoe 0-01 tablet by ity of phedrine 23:08: mouth [place] (ZYRTEC-D 36 daily. Medical ORAL) Branch furosemide 2020-06 Yes 40mg Take 40 mg U nivers 40 mg 0-01 by mouth 2 ity of tablet 23:08: (two) [place] [address] times Medical daily. Branch divalproex 2020-06 Yes 500mg Take 500 Un lori ER 0-01 mg by ity of (DEPAKOTE 23:08: mouth 2 [place] ER) 500 mg (two) Medical 24 hr times Branch tablet daily. gabapentin 2020-06 Yes 100mg Take 100 Un lori 100 mg 0-01 mg by ity of capsule 23:08: mouth 2 [place] [address] (two) Medical times Branch daily. vitamin C 2020-06 Yes 2000mg Take 2,000 Univers with sia 0-01 mg by ity of hips 23:08: mouth 2 [place] (VITAMIN C) (two) Medical 1,000 mg times Branch tablet daily. metoprolol 2020-06 Yes 50mg Take 50 mg U nivers tartrate 50 0-01 by mouth ity of mg tablet 23:08: daily. [place] [address] Medical Branch folic 2020-06 Yes 800mg Take 800 Univers acid/vit B 0-01 mg by ity of complex and 23:08: mouth [place] C daily. Medical (DIALYVITE Branch 800 ORAL) linagliptin 2020-06 Yes Take by Un lori (TRADJENTA) 0-01 mouth. ity of 5 mg tablet 23:08: [place] [address] Medical Branch spironolact 2020-06 Yes 50mg Take 50 mg Univers one 50 mg 0-01 by mouth ity of tablet 23:08: daily. [place] [address] Medical Branch pravastatin 2020-06 Yes 40mg Take 40 mg Univers 40 mg 0-01 by mouth ity of tablet 23:08: daily. [place] [address] Medical Branch mv-mn/iron/ 2020-06 Yes 1{capsu Take 1 U nivers folic 0-01 le} capsule by ity of acid/herb 23:08: mouth [place] 190 36 daily. Medical (VITAMIN D3 Branch COMPLETE ORAL) SERTraline 2020-06 Yes 50mg Take 50 mg U nivers 50 mg 0-01 by mouth ity of tablet 23:08: daily. [address] Branch calcium 2020-06 Yes 667mg Take [...] 36 times Medical daily. Branch BUPROPION 2020-06- 300mg Take 300 Un lori HCL ORAL 0-01 10-01 mg by ity of 16:33: 00:00 mouth [place] 14 :00 every Medical morning. Branch Wellbutrin XL tramadol No Notes: Not Mem oria hydrochlori 01-29 to exceed l de 50 MG 11:14: 400mg/day. Her braden Oral Tablet 00 (Same As: Ultram) Simethicone No Notes: Mendoza janice - (Same as: l 01:36: Mylicon) Vin 00 epoetin Yes 2,000 unit Mendoza janice giovanny-epbx 8 = 1 mL, l 1999 19:37: IV, Vin units/mL 00 Q-M-W-F, preservativ to be e-free given at injectable post solution Dialysis sessions, 0 Refill(s) gabapentin Yes 300 mg = 1 M emoria 300 MG Oral 8-10 cap, PO, l Capsule 19:34: Q-M-W-F, # Herm naeem 00 13 cap, 0 Refill(s) amLODIPine Yes 10 mg = 1 Me moria 10 mg oral 8-10 tab, PO, l tablet 19:33: Daily, # [place] 00 30 tab, 2 Refill(s) busPIRone Yes 7.5 mg = 1 Me moria 7.5 mg oral 8-10 tab, PO, l tablet 19:33: BID, 0 Vin 00 Refill(s) buPROPion Yes 75 mg = [...] Notes: Memoria 01-27 porcine l 02:00: heparin Magnesium No Notes: Memori a Oxide 01-23 (Same as: l 22:54: Mag-Ox [place] 00 400) Magnesium oxide 143pb=669s g elemental magnesium Dose=____m g magnesium oxide (___mg elemental magnesium) Coreg No Notes: Memoria 01-23 Give with l 02:00: food. [place] 00 (Same As: Coreg) Buspar No Notes: Memoria 01-22 (Same As: l 22:00: BuSpar) [place] 00 Fentanyl No Notes: Memoria 01-22 (Same as: l 21:06: Sublimaze) Vin 00 Preservat montse free. Norvasc No Notes: Memoria 8- (Same as: l 16:47: Norvasc) [place] 00 Wellbutrin No Notes: Memor ia 01-22 [...] 8-04 not exceed l 09:44: 4 gm/day. (Same as: Tylenol) Fentanyl No Notes: Memoria 8-04 (Same as: l 09:44: Sublimaze) Preservat montse free. Fentanyl No Notes: Memoria 8-04 (Same as: l 04:46: Sublimaze) Preservat montse free. Fentanyl No Notes: Memoria 8-04 (Same as: l 02:01: Sublimaze) Preservat montse free. Coreg No Notes: Memoria 8-04 Give with l 02:00: food. 00 (Same As: Coreg) Saline No Notes: Memoria Flush 0.9% 8-04 Same as: l 02:00: BD Posiflush Sterile Valproate No 1,000 mg, Mem oria 01-22 2 tab, l 02:00: Route: PO, Vin [...] ine 01-21 tab, l 18:00: Route: PO, [place] Drug form: TAB, TID, Dosing Weight 72, kg, Start date: 01/21/21 13:00:00 CDT, Duration: 30 day, Stop date: 02/20/21 9:00:00 CDT Albuterol No Notes: SEE Me moria 01-21 RT l 17:49: DOCUMENTAT [place] ION (Same as: Proventil) albuterol No 180 [...] being intubated (unless the nurse is a OUTDOOR STUDIES DIRECTOR). Same as: Diprivan midazolam No Route: IV, Me moria (ANES) 01-21 Drug form: l 17:18: SOLN, Vin 00 ONCE, Stop date: 01/21/21 12:18:00 CDT fentaNYL No Route: IV, Mem oria (ANES) 01-21 Drug form: l 17:18: INJ, ONCE, [place] Stop date: 01/21/21 12:18:00 CDT niCARdipine No [...] 10:17:00 CDT Hydralazine No Notes: Mendoza janice 8-03 (Same as: l 13:16: Apresoline ) Push over 5 minutes Labetalol No 10 mg, 2 Mendoza janice - mL, Route: l 13:16: IVP, Drug form: [...] janice 01-21 (Same as: l 13:16: Mylicon, [place] 00 Phazyme, Genasyme) calcium No See Memoria [...] = 1 Me moria 550 MG Oral 06 tab, PO, l Tablet 18:46: TID, # 42 Jake n [XIFAXAN] 00 tab, 2 Refill(s), Pharmacy: [facility], 154.94, cm, 12/24/20 10:43:00 CDT, Height, 71.818, kg, 12/24/20 10:43:00 CDT, Weight {2 (480 ML Yes See Memoria Magnesium 12-24 Instructio l Sulfate 18:12: ns, take Jake n 0.0277 00 as MEQ/ML / directed, potassium give sulfate clenpiq if 0.0374 not MEQ/ML / covered by sodium insurance, sulfate # 1 ea, 0 0.257 Refill(s), MEQ/ML Oral Pharmacy: Solution) } [facility] [Suprep 808, Bowel Prep 154.94, Kit] cm, 12/24/20 10:43:00 CDT, Height, 71.818, kg, 12/24/20 10:43:00 CDT, Weight Citric Acid Yes 160 mL, Mem oria 75 MG/ML / 7-06 PO, PRE l Magnesium 18:11: OP, # 1 Nidia nn Oxide 21.9 00 ea, 0 MG/ML / Refill(s), picosulfate Pharmacy: [facility] 0.0625 Pharm[facility] MG/ML Oral 808, Solution 154.94, [Clenpiq] cm, 12/24/20 10:43:00 CDT, Height, 71.818, kg, 12/24/20 10:43:00 CDT, Weight cyproheptad Yes 4 mg = 1 Me moria ine 4 mg 7-06 tab, PO, l oral tablet 18:10: TID, X 30 H erm day, # 90 tab, 3 Refill(s), Pharmacy: [facility], 154.94, cm, 12/24/20 10:43:00 CDT, Height, 71.818, kg, 12/24/20 10:43:00 CDT, Weight Zinc 0 Yes 140 mg, Memoria 7-06 PO, Daily, l 15:54: 0 Vin 00 Refill(s) Elderberry 0 Yes 0 Memoria preparation 7-06 Refill(s) l 15:54: Buspar 0 Yes PO, BID, 0 Memor ia 7-06 Refill(s) l 15:53: [place] 00 Dialyvite 0 Yes 0 Memoria 5000 7-06 Refill(s) l 15:53: traZODone 0 Yes 200mg QD Take 200 [facility] (Desyrel) 6-19 mg by Health 100 MG 00:00: mouth at tablet 00 night if needed. NEEDED sertraline 0 Yes 50mg Take 50 mg U T (Zoloft) 50 6-19 by mouth 1 He alth MG tablet 00:00: (one) time 00 each day in the morning. gabapentin 0 Yes 100mg QD Take 100 [facility] (Neurontin) 6-19 mg by Health 100 MG 00:00: mouth 1 capsule 00 (one) time each day. divalproex 0 Yes 500mg Q.5D Take 500 [facility] (Depakote 6-19 mg by Health ER) 500 MG 00:00: mouth 2 24 hr 00 (two) tablet times a day. busPIRone 0 Yes 7.5mg Q.5D Take 7.5 UT (Buspar) 6-19 mg by [facility] 7.5 MG 00:00: mouth 2 tablet 00 (two) times a day. buPROPion Yes 300mg Take 300 UT XL 6-19 mg by [facility] (Wellbutrin 00:00: mouth 1 XL) 300 MG 00 (one) time 24 hr each day tablet in the morning. busPIRone 0 Yes 7.5mg Take 7.5 Uni vers 7.5 mg 6-19 mg by ity of tablet 00:00: mouth 2 [place] 00 (two) Medical times Branch daily. metoprolol Yes 1{tbl} QD Take 1 UT succinate 5-25 tablet by Healt h XL 00:00: mouth 1 (Toprol-XL) 00 (one) time 50 MG 24 hr each day. tablet ascorbic Yes 500mg Q.[id number] Take 500 UT acid 5-15 [id number] mg by [facility] (Vitamin C) 00:00: 3D mouth 3 500 MG 00 (three) tablet times a day. sucralfate Yes 1{tbl} QD Take 1 UT (Carafate) 5-[address] [facility] th 1 g tablet 00:00: mouth 1 00 (one) time each day. zinc Yes DAILY Univers sulfate 50 5-10 ity of mg zinc 00:00: [place] (220 mg) 00 Medical capsule Branch ondansetron 0 Yes 4mg Take 4 mg U nivers 4 mg 4-13 by mouth ity of disintegrat 00:00: daily. [place] ing tablet 00 Medical Branch GLIPIZIDE 5 2020-0 Yes [id number] TAKE 1 Univers mg tablet -06 TABLET BY ity o f 00:00: MOUTH [place] 00 TWICE Medical DAILY Branch BEFORE BREAKFAST AND BEFORE SUPPER doxazosin 4 2020-0 2020- No 4mg Take 4 mg Univers mg tablet 06-27 by mouth 2 ity of 10:52: 00:00 (two) [place] 22 :00 times Medical daily. Branch doxazosin 4 2020-0 Yes 4mg Take 1 Univ ers mg tablet 1-07 tablet by ity o f 00:00: mouth at [place] 00 bedtime. Medical Branch doxazosin 4 Yes 4mg Take 1 Univ ers mg tablet 1-07 tablet by ity o f 00:00: mouth at [place] 00 bedtime. Medical Branch glipiZIDE 5 2019-06- No [id number] 5mg Take 1 Univers mg tablet 07-01 04-06 tablet by ity of 00:00: 00:00 mouth 2 [place] 00 :00 (two) Medical times Branch daily before breakfast and dinner. metoclopram Yes 1{tbl} Take 1 Un lori gadiel HCl 9-16 tablet by ity of (REGLAN) 5 00:00: mouth [place] mg tablet 00 daily. Medical Branch buPROPion Yes 300mg Take 300 Uni vers XL 300 mg 9-15 mg by ity of 24 hr 00:00: mouth [place] tablet 00 daily. Medical Branch calcium Yes 667mg Take 667 Unive rs acetate,domingo 9-15 mg by ity of sphat bind, 00:00: mouth. [place] 667 mg 00 Medical capsule Branch traZODone Yes 150mg Take 150 Uni vers 150 mg 8-13 mg by ity of tablet 00:00: mouth at [place] [address] bedtime. Medical Branch traZODone Yes 150mg Take 150 Uni vers 150 mg 8-13 mg by ity of tablet 00:00: mouth at [place] [address] bedtime. Medical Branch erythromyci 2020- No [id number] .5[in_u Place 0.5 Univers n 5 mg/gram [...] needed for Wheezing or Shortness of Breath. albuterol 2018- Yes 2{puff} Inhale 2 U nivers 90 5-06 Puffs ity of mcg/actuati 00:00: every 4 Baljinder as on inhaler 00 (four) Medical hours as Branch needed for Wheezing or Shortness of Breath. artificial 2018- Yes 1[drp] Place 1 Un lori tears,hypro 2-08 Drop in ity o f mellose, 00:00: left eye 4 Baljinder as (ISOPTO 00 (four) Medical TEARS) 0.5 times Branch % daily as ophthalmic needed for drops Dry eyes. artificial 2018- Yes 1[drp] Place 1 Un lori tears,hypro 2-08 Drop in ity o f mellose, 00:00: left eye 4 Baljinder as (ISOPTO 00 (four) Medical TEARS) 0.5 times Branch % daily as ophthalmic needed for drops Dry eyes. divalproex 2017- Yes depression 500mg QD Take [...] l 59 Center hydrALAZINE 2017-0 Yes 100mg Q.56830910 Take [address] [facility] (APRESOLINE 7-20 [id number] mg by L ukes - ) 100 MG 15:20: 3D mouth 3 Medica l tablet 59 (three) Center times daily. magnesium 2017-0 Yes 400mg QD Take [address] [facility] [address] oxide 7-20 mg by [facility] (MAG-OX) 15:20: mouth Medical 400 mg 59 daily. Center tablet metoclopram 2017-0 Yes 10mg Q.61548889 Take [address] [facility] gadiel HCl 7-20 [id number] by mouth 3 [facility] - (REGLAN) 10 [...] 3 Center mg/mL (three) injection months. divalproex 2017- Yes depression 500mg QD Take [...] l 59 Center hydrALAZINE 2017-0 Yes 100mg Q.66347177 Take [address] [facility] [address] (APRESOLINE 7-20 [id number] mg by L ukes - ) 100 MG 15:20: 3D mouth 3 Medica l tablet 59 (three) Center times daily. magnesium 2017-0 Yes 400mg QD Take [address] oxide 7-20 mg by [facility] - (MAG-OX) 15:20: mouth Medical 400 mg 59 daily. Center tablet metoclopram 2017-0 Yes 10mg Q.43658705 Take [address] [facility] [address] gadiel HCl 7-20 [id number] by mouth 3 [facility] - (REGLAN) 10 [...] l 59 Center hydrALAZINE 2017-0 Yes 100mg Q.56213028 Take [address] [facility] (APRESOLINE 7-20 [id number] mg by L ukes - ) 100 MG 15:20: 3D mouth 3 Medica l tablet 59 (three) Center times daily. magnesium 2017- Yes 400mg QD Take [address] oxide 7-20 mg by [facility] - (MAG-OX) 15:20: mouth Medical 400 mg 59 daily. Center tablet metoclopram 2017-0 Yes 10mg Q.43909052 Take [address] [address] gadiel HCl 7-20 [id number] by mouth 3 [facility] - (REGLAN) 10 [...] tab, PO, l Tablet 15:07: Daily, # [place] 00 30 tab, 0 Refill(s), Pharmacy: [facility] 808 Bumex No 0.5 mg, Memoria 2-09 Route: PO, l 15:00: Drug form: Vin 00 TAB, Daily, Dosing Weight 92.273, kg, Start date: 07/30/16 9:00:00 MATHEMATICS LECTURER, Duration: 30 day, Stop date: 08/28/16 9:00:00 MATHEMATICS LECTURER Lasix 2016-0 No Notes: Memoria 2-08 (Same as: l 20:05: Lasix) Vin 00 May cause GI upset. Give with food or milk. Hydralazine No Notes: Mendoza janice 2-08 (Same as: l 06:05: Apresoline ) Push over 5 minutes sodium 2016-0 No 1,000 mL, Memori a chloride 2-05 Rate: 125 l 0.9% 1000 18:26: ml/hr, Jake n ml INJ 00 Infuse 1,000 mL over: 8 hr, Route: IV, Dosing Weight 92.273 kg, Total Volume: 1,000, Start date: 07/26/16 12:26:00 MATHEMATICS LECTURER, Duration: 30 day, Stop date: 08/25/16 12:25:00 MATHEMATICS LECTURER Sodium 2016-0 No 500 mL, Memoria Chloride 2-05 500 ml/hr, l 0.154 13:30: Infuse Vin MEQ/ML 00 Over: 1 Injectable hr, Route: Solution IV, 500, Drug form: INJ, ONCE, Priority: STAT, Dosing Weight 92.273 kg, Start date: 07/26/16 7:30:00 MATHEMATICS LECTURER, Duration: 1 doses or times, Stop date: 07/26/16 7:30:00 MATHEMATICS LECTURER Insulin 2016- No 60 Memoria regular 2-04 units) l 08:39: WASTE: F/P Vin - Black; E - Municipal Trash Bin Stable for 28 days at room temperatur e Expires in days from ____Date Insulin, 2016-0 [...] Weight 92.273, kg, Start date: 07/24/16 9:00:00 MATHEMATICS LECTURER, Duration: 30 day, Stop date: 08/22/16 9:00:00 MATHEMATICS LECTURER 24 HR No Notes: Memoria Divalproex 2-03 (Same as: l Sodium 500 15:00: Depakote Her braden MG Extended 00 ER) Release Tablet [Depakote] gabapentin No Notes: Memor ia 300 MG Oral 2-03 (Same as: l Capsule 15:00: Neurontin) Herm naeem Aspirin 81 No Notes: Memor ia MG Chewable 2-03 Take with l Tablet 15:00: food. [place] 00 Lasix No Notes: Memoria 2-03 (Same as: l 15:00: Lasix) [place] MEDICATION WASTE Product Size: 40 mg Product Wasted: ___ mg Zoloft No Notes: Memoria 2-03 (Same as: l 15:00: Zoloft) [place] Protonix No Notes: Memoria 2-03 Tablet l 15:00: should not be chewed or crushed. (Same as: Protonix) metoprolol No 100 mg, 2 Me moria extended 2-03 tab, l release 15:00: Route: PO, Herm naeem Drug form: ERTAB, Daily, Start date: 07/24/16 9:00:00 MATHEMATICS LECTURER, Duration: 30 day, Stop date: 08/22/16 9:00:00 MATHEMATICS LECTURER Insulin No Notes: Memoria Glargine 2-03 Same [...] Roll in l Human 08:40: palms of [place] 00 hands gently; Do not shake vigorously . (Same as: NovoLOG) "single patient use only" WASTE: F/P - Black; E - Municipal Trash Bin Stable for 28 days at room temperatur e. Expires in days from ____Date Glucagon No 1 mg, Memoria 2- Route: IM, l 08:40: Drug form: Vin 00 PDR/INJ, PRN, Dosing Weight 92.273, kg, PRN Blood Glucose Results, Start date: 07/24/16 2:40:00 MATHEMATICS LECTURER, Duration: 30 day, Stop date: 08/23/16 2:39:00 MATHEMATICS LECTURER Dextrose No 25 gm, 50 Mendoza janice 50% Syringe 2-03 mL, Route: l 08:40: IVP, Drug [place] 00 Form: INJ, Dosing Weight 92.273, kg, PRN, PRN Blood Glucose Results, Start date: 07/24/16 2:40:00 MATHEMATICS LECTURER, Duration: 30 day, Stop date: 08/23/16 2:39:00 MATHEMATICS LECTURER Docusate No Notes: Memoria 2-03 (Same as: l 07:20: Colace) Vin (Do Not Crush) Ondansetron No Notes: Mendoza janice 2-03 (Same as: l 07:20: Zofran) [place] 00 MEDICATION WASTE Product Size: 4 mg Product Wasted: ___ mg Lasix No Notes: Memoria 2-03 (Same as: l 06:01: Lasix) MEDICATION WASTE Product Size: 40 mg Product Wasted: ___ mg Aspirin No Notes: Memoria 2- Take with l 05:48: food. Prednisone No Notes: Memor ia - Take with l 05:02: food. Albuterol No Notes: Memori a 0.833 MG/ML 07-24 (Same as: l / 04:09: Duoneb) Vin Ipratropium 00 [place] 0.167 MG/ML Inhalant Solution [DuoNeb] Furosemide 2015-06 Yes 80 mg = 2 Me moria 40 MG Oral 2-26 tab, PO, l Tablet 16:34: BID, # 120 Nidia nn 00 tab, 0 Refill(s) atorvastati 2015-06 Yes 40 mg = 1 M emoria n 40 mg 2-26 tab, PO, l oral tablet 16:34: Bedtime, # [place] 00 30 tab, 0 Refill(s) Insulin 2015-06 [...] tab, PO, l Tablet 16:34: Daily, # [place] 00 30 tab, 0 Refill(s) Hydroxyzine 2015-06 [...] 13:36: Mag-Ox Vin 00 400) Magnesium oxide 805vs=554y g elemental magnesium Dose=____m g magnesium oxide (___mg elemental magnesium) Magnesium 2015-06 No Notes: Memori a Oxide 2-24 (Same as: l 09:47: Mag-Ox [place] 00 400) Magnesium oxide 342px=693i g elemental magnesium Dose=____m g magnesium oxide [...] Memoria 2-24 (Same as: l 00:00: Norvasc) [place] 00 Insulin 2015-06 No Notes: Memoria Glargine [...] tab, PO, l Tablet 15:27: Daily, 0 [place] [Zoloft] 00 Refill(s) pantoprazol 2015-06 Yes 40 mg = 1 M emoria e 40 MG 2-23 tab, PO, l Enteric 15:27: Daily, 0 Jake n Coated 00 Refill(s) Tablet [Protonix] gabapentin 2015-06 Yes 1 CAP PO Mem oria 300 MG Oral 2-23 BID AND 1 l Capsule 15:27: CAP AT [place] 00 BEDTIME, 0 Refill(s) Insulin, 2015-06 No [...] Weight 86.364, kg, Start date: 06/11/16 9:00:00 MATHEMATICS LECTURER, Duration: 30 day, Stop date: 07/10/16 9:00:00 MATHEMATICS LECTURER Insulin 2015-06 No Notes: Memoria Glargine 2-22 Same as: l 100 UNT/ML 15:00: Lantus) Do H ermann Injectable 00 not hold Solution insulin [Lantus] without contacting prescriber WASTE: F/P - Black; E - Municipal Trash Bin Zoloft 2015-06 No Notes: Memoria 2-22 (Same as: l 15:00: Zoloft) Vin 00 Insulin, 2015-06 No Notes: Memoria Aspart, 2-22 Roll in l Human 12:55: palms of [place] 00 hands gently; Do not shake vigorously [...] 08-12 (Same as: l / 03:00: Duoneb) [place] Ipratropium 00 [place] 0.167 MG/ML Inhalant Solution [DuoNeb] gabapentin 2015-06 No 300 mg, Mendoza janice 300 MG Oral 08-12 Route: PO, l Capsule 03:00: Drug form: Herm naeem 00 CAP, Q12H, Dosing Weight 86.364, kg, (CrCl 30 - 59 ml/min), Start date: 06/10/16 21:00:00 MATHEMATICS LECTURER, Duration: 30 day, Stop date: 07/10/16 9:00:00 MATHEMATICS LECTURER divalproex 2015-06 No Notes: Memor ia sodium 2-22 (Same as: l 03:00: Depakote [place] 00 ER) Once daily dosing; indicated for migraines. Divalproe x sodium extended-r elease tab. Do not chew or crush. "Do Not Crush" Losartan 2015-06 No Notes: Memoria 2-22 (Same as: l 03:00: Cozaar) [place] 00 Insulin, 2015-06 No Notes: Memoria Aspart, [...] Syringe 2-22 25 mL, l 00:50: Route: [place] 00 IVP, Drug Form: INJ, Dosing Weight 86.364, kg, PRN, PRN Blood Glucose Results, Start date: 06/10/16 18:50:00 MATHEMATICS LECTURER, Duration: 30 day, Stop date: 07/10/16 18:49:00 MATHEMATICS LECTURER Glucagon 2015-06 No 1 mg, Memoria 2-22 Route: IM, l 00:50: Drug form: PDR/INJ, PRN, Dosing Weight 86.364, kg, PRN Blood Glucose Results, Start date: 06/10/16 18:50:00 MATHEMATICS LECTURER, Duration: 30 day, Stop date: 07/10/16 18:49:00 MATHEMATICS LECTURER Hydralazine 2015-06 No Notes: Mendoza janice 2-22 [...] Weight 86.364, kg, Start date: 06/10/16 18:06:00 MATHEMATICS LECTURER, Stop date: 06/10/16 18:06:00 MATHEMATICS LECTURER hydrOXYzine 2015-06 No Notes: Mendoza janice pamoate 2-21 (Same as: l 23:00: Vistaril) Furosemide 2015-06 No 60 mg, Memor ia 2-21 Route: l 22:32: IVP, Drug form: INJ, ONCE, Dosing Weight 86.364, kg, Start date: 06/10/16 16:32:00 MATHEMATICS LECTURER, Stop date: 06/10/16 16:32:00 MATHEMATICS LECTURER Lasix 2015-06 No Notes: Memoria 08-11 (Same as: l 17:22: Lasix) MEDICATION WASTE Product Size: 40 mg Product Wasted: _0__ mg Albuterol 2015-06 No Notes: Memori a 0.833 MG/ML 08-11 (Same as: l / 17:22: Duoneb) Ipratropium 00 [place] 0.167 MG/ML Inhalant Solution [DuoNeb] Promethazin Yes 25 mg = 1 M emoria e -06 supp, CT, l Hydrochlori 14:45: Q6H, Jake n de [...] 1 tab, Me moria n 500 MG -06 PO, Q6H, # l Enteric 14:24: 40 tab, 0 Nidia nn Coated 00 Refill(s) Tablet Hydromorpho No Notes: Mendoza janice ne 06-26 Same as: l 11:48: Dilaudid hydrOXYzine Yes 0 Memori a pamoate - Refill(s) l 11:18: [place] Dicyclomine Yes 0 Memori a -06 Refill(s) l 11:18: Vin 00 Ondansetron Yes 0 Memori a 1-06 Refill(s) l 11:17: Vin Benztropine 2015-0 Yes 0 Memori a 1-06 [...] Sodium No 2,000 mL, Memori a Chloride - 1,000 l 0.154 10:56: ml/hr, MEQ/ML 00 Infuse Injectable Over: 2 Solution hr, Route: IV, 2,000, Drug form: INJ, ONCE, Priority: STAT, Dosing Weight 75 kg, Start date: 06/26/14 4:56:00, Duration: 1 doses or times, Stop date: 06/26/14 4:56:00 Lorazepam No Notes: Memori a - (Same as: l 10:56: Ativan) Metoclopram No [...] Marx Rate: 500 l 0.9% 23:45: ml/hr, [place] (Bolus) IV 00 Infuse 500 mL over: [...] 03-14 Marx Rate: l 0.9% 22:19: 1,000 [place] (Bolus) IV 00 ml/hr, 500 mL Infuse [...] insulin No Blake 10 unit, Mem oria isophane-TRACK MAN 6-11 Deangelo 0.1 mL, l H 02:00: Route: [place] SUB-Q, Drug form: INJ, Bedtime, Start date: 11/29/11 21:00:00, Duration: 30 day, Stop date: 12/28/11 21:00:00 Insulin 2011-0 No Blake 8 unit, Mendoza janice regular 6-11 Deangelo 0.08 mL, l 02:00: Route: [place] SUB-Q, Drug form: SOLN, Bedtime, Start date: [...] Stop date: 12/28/11 21:00:00 amLODipine 2011-0 No Balke 5 mg, 1 M emoria 6-11 Deangelo [...] Omidvar mL, Route: l 21:32: IVP, Drug [place] 00 form: INJ, ONCE, Start date: 11/29/11 16:32:00, Stop date: 11/29/11 16:32:00 Tylenol 2011-0 No [place] 650 mg, 2 Mem oria 6-10 Omidvar tab, l 19:16: Route: PO, Vin Drug form: TAB, Q4H, PRN Pain, Start date: 11/29/11 14:16:00, Duration: 30 day, Stop date: 12/29/11 14:15:00 insulin 2011-0 No Blake 14 unit, Mem oria isophane-TRACK MAN 6-10 Deangelo 0.14 mL, l H 14:00: Brisa Route: [place] 00 SUB-Q, Drug form: INJ, Daily, Start [...] 30 day, Stop date: 12/28/11 9:00:00 insulin 2011- No Blake 10 unit, Mem oria aspart 6-10 Deangelo 0.1 mL, l 06:30: Brisa Route: [place] 00 SUB-Q, Drug form: SOLN, TID-Before Meals, PRN Blood Glucose Results, Start date: 11/29/11 1:30:00, Duration: 30 day, Stop date: 12/29/11 1:29:00 Dextrose No Blake 25 gm, 50 M emoria 50% Syringe 6-10 Deangelo mL, Route: l 06:30: Brisa IVP, Drug Herm naeem Form: INJ, PRN, PRN Blood Glucose Results, Start date: 11/29/11 1:30:00, Duration: 30 day, Stop date: 12/29/11 1:29:00 glucagon 2011- No Blake 1 mg, Memor ia 6-10 [...] l 06:28: Brisa IVP, Drug Herm naeem Form: INJ, PRN, PRN Line Flush, Start [...] mL, Route: l 04:01: Brown IVP, Drug [place] 00 form: INJ, ONCE, Priority: STAT, Start date: 11/28/11 23:01:00, Stop date: 11/28/11 23:01:00 Zofran 2011-0 No Nikki 4 mg, 2 Mendoza janice 6-10 Sarah mL, Route: l 02:31: Brown IVP, Drug [place] 00 form: INJ, ONCE, Priority: STAT, Start date: 11/28/11 21:31:00, Stop date: 11/28/11 21:31:00 NS (Bolus) No Arif Domenico 1,000 mL, Memoria IV 1,000 mL 11-27 Rate: l 22:48: 1,000 [place] 00 ml/hr, Infuse over: 1 hr, Route: [...] 6-09 mL, Route: l 20:35: IVP, Drug [place] 00 form: INJ, ONCE, Priority: STAT, Start date: 11/28/11 15:35:00, Stop date: 11/28/11 15:35:00 Novolin R Yes Hughes-Jason 8 unit, M emoria 100 3-30 [place] SUB-Q, l units/mL 17:47: Eunice Q12H, 2 He rmann injectable 42 Pu vial, solution Substituti on Allowed, SOLN Novolin N Yes Hughes-Jason 10 unit, Memoria 100 3-30 [place] SUB-Q, l units/mL 17:46: Eunice Bedtime, H ermann subcutaneou 27 Pu 10 ml, s injection Substituti on Allowed, SUSP Novolin N Yes Hughes-Jason 14 unit, Memoria 100 3-30 [place] SUB-Q, l units/mL 17:44: Eunice QAM, 1 Her braden subcutaneou 37 Pu vial, s injection Substituti on Allowed, SUSP magnesium No Hughes-Jason 400 mg, 1 Memoria oxide 3-30 [place] tab, l 14:55: Dawson Route: PO, Her braden 00 Pu Drug form: TAB, ONCE, Priority: STAT, Start date: 09/18/11 9:55:00, Stop date: 09/18/11 9:55:00 Insulin No Hughes-Jason 8 unit, Mem oria regular 3-30 [place] 0.08 mL, l 14:22: Dawson Route: Vin 00 Pu SUB-Q, Drug form: SOLN, ONCE, Priority: STAT, Start date: 09/18/11 9:22:00, Stop date: 09/18/11 9:22:00 Lactated 2012-0 No Hughes-Jason 1,000 mL, Memoria Ringers 3-30 [place] Rate: l (Bolus) IV 14:16: [place] 1,000 He rmann 1,000 mL 00 Pu ml/hr, Infuse over: 1 hr, Route: IV, Total Volume: 1,000, [place] Dose, Priority: STAT, Start date: 09/18/11 9:16:00, Duration: 1 doses or times, Stop date: 09/18/11 10:15:00 Sodium 2011-0 No Hughes-Jason 1,000 mL, Me moria Chloride 3-30 [place] Rate: l 0.9% 14:06: Dawson 1,000 Vin [...] Hughes-Jason 1,000 mL, Me moria Chloride 3-30 [place] Rate: l 0.9% 13:56: Dawson 1,000 Vin [...] 19 cap, Substituti on Allowed, CAP clindamycin 2011- Yes Luna 300 mg, 2 Memoria 150 mg oral 3-21 Amelia cap, PO, l capsule 18:46: Zeeshan Q8H, 30 Her braden 55 cap, Substituti on Allowed, CAP [place] Yes Luna 1 tab, PO, Memoria 10/325 oral -21 Amelia Q4H, PRN, l tablet 18:46: [place] 30 tab, Herm naeem 36 Pain, Substituti on Allowed, Maintenanc e, TAB [place] No Hollie Donvaan 1 tab, Mendoza janice 10/325 oral -21 [...] 3-19 Omidvar tab, l 15:30: Route: PO, [place] 00 Drug form: TAB, Daily, Start date: [...] moria 3-19 Josefina 0.1 mL, l 14:19: Scalf Route: [place] 00 IVP, Drug form: INJ, Q2MIN, PRN Narcotic Reversal, Start date: 09/07/11 9:19:00, Duration: 8 doses or times, Stop date: Limited # of times ondansetron No Gayle 4 mg, 2 Memoria - Josefina mL, Route: l 14:19: Gavin IVP, Drug Jake n 00 form: INJ, ONCE, PRN Nausea & Vomiting, Start date: 09/07/11 9:19:00 hydromorpho No Gayle 0.5 mg, Memoria ne 09-06 Josefina 0.25 mL, l 14:19: Gavin Route: IVP, Drug form: INJ, Q5Min, PRN Pain Score 4-6, Start date: 09/07/11 9:19:00, Duration: 5 doses or times, Stop date: Limited # of times acetaminoph No Gayle 15 mL, M emoria en-hydrocod 09-06 Josefina Route: PO, l one 325 14:19: Drug Form: He rmann mg-10 mg/15 00 SOLN, Q4H, mL oral PRN Pain solution Score 4-6, Start date: 09/07/11 9:19:00, Duration: 1 day, Stop date: 09/08/11 8:00:00 Lactated No [place] 1,000 mL, Me moria Ringers IV 09-06 Omidvar Rate: 125 l 1,000 mL 14:06: ml/hr, Infuse over: 8 hr, Route: IV, Dosing Weight 68.182 kg, Total Volume: 1,000, Start date: 09/07/11 9:06:00, Duration: 30 day, Stop date: 10/07/11 9:05:00 clindamycin No Maximo R 600 mg, Memoria 09-06 Arias Route: l 13:31: IVPB, [place] 00 ONCE, Start date: 09/07/11 8:31:00, Stop date: 09/07/11 8:31:00 normal No Yury W 1,000 mL, M emoria saline 0.9% 09-06 Adeline Rate: 100 l IV 1,000 mL 05:00: ml/hr, Herm naeem Infuse over: 10 hr, Route: IV, Dosing Weight 68.18 kg, Total Volume: 1,000, Start date: 09/07/11 0:00:00, Duration: 30 day, Stop date: 10/06/11 23:59:00 normal 2011- No Yury Yan 1,000 mL, M emoria saline 0.9% 3-18 [...] 09/05/11 9:11:00, Stop date: 09/05/11 9:11:00 Dulcolax 2011- No Charbel A 10 mg, 2 M [...] Duration: 30 day, Stop date: 10/04/11 18:10:00 [place] 2011-0 No Mahammad 1 tab, Memori a [...] 10cc/hr, l - site 1 14:50: Route: [place] 400 mL 00 NERVE BLOCK, Start date: 09/04/11 9:50:00 400 mL, Duration: 30 day, Stop date: 10/04/11 9:49:00 naloxone 2011-0 No Rosalino 0.04 mg, Me moria 3-16 Kavon 0.1 mL, l 14:50: Route: [place] 00 IVP, Drug form: INJ, Q2MIN, PRN Narcotic Reversal, Start date: 09/04/11 9:50:00, Duration: 30 day, Stop date: 10/04/11 9:49:00 [place] 2011-0 No [place] 1 tab, Memoria 10/325 [...] Stop date: Limited # of times meperidine 0 No Hollie 12.5 mg, Me moria 3-16 [...] 3-15 Anabelle mL, Route: l 16:00: IVPB, [place] [id number], Start date: 09/03/11 11:00:00, Duration: 30 day, Stop date: 10/03/11 8:00:00 potassium 2011-0 No [place] 40 mEq, 2 M emoria chloride 3-15 Omidvar tab, l 13:39: Route: PO, [place] Drug form: ERTAB, ONCE, Start date: 09/03/11 8:39:00, Stop date: 09/03/11 8:39:00 [place] 5/325 2011-0 No Rosalino 1 tab, M emoria oral tablet 3-15 Kavon Route: PO, l 05:00: Drug Form: [place] 00 TAB, Q4H, Start date: 09/03/11 0:00:00, Duration: 30 day, Stop date: 10/02/11 20:00:00 Geodon 2011-0 No Eber L 120 mg, 3 Memoria 3-15 Anabelle cap, l 02:00: Route: PO, [place] 00 Drug form: CAP, Bedtime, Start date: [...] Duration: 30 day, Stop date: 10/02/11 9:00:00 [place] 5/325 2011-0 No Rosalino 1 tab, M [...] Route: l 14:00: IVPB, Drug form: INJ, [id number], Start date: 09/02/11 9:00:00, Duration: 30 day, [...] or times, Stop date: 09/02/11 15:00:00 insulin No [place] 15 unit, Mendoza janice isophane-TRACK MAN 3-14 Omidvar 0.15 mL, l H 02:00: Route: [place] 00 SUB-Q, Drug form: INJ, Q12H, Start [...] 30 day, Stop date: 10/01/11 20:06:00 ondansetron 2011-0 No Mariaelena-Corea 4 mg, Memoria 3-14 Barbra Route: l 01:07: Feliciano IVP, ONCE, [place] PRN Nausea & Vomiting, Start date: 09/01/11 20:07:00 vancomycin 2011-0 No Mele 1 gm, Mem oria 3-14 Gauvain Route: l 01:00: IVPB, Drug form: INJ, [id number], Start date: 09/01/11 20:00:00, Duration: 30 day, [...] Route: l 00:00: IVPB, Drug form: INJ, [id number], Start date: 09/01/11 19:00:00, Duration: 30 day, [...] Movva mL, Route: l 23:23: IVP, Drug Vni Form: INJ, PRN, PRN Blood Glucose Results, Start date: 09/01/11 18:23:00, Duration: 30 day, Stop date: 10/01/11 18:22:00 morphine 2011-0 No Daja Shannan 2 mg, 1 M emoria Sulfate 3-13 Beni mL, Route: l 21:14: IVP, Drug [place] form: INJ, Q4H, PRN Severe Pain, Start date: 09/01/11 16:14:00, Stop date: 10/01/11 16:13:00 Lactated 2011-0 No Cesar 1,000 mL, Me moria Ringers IV 3-13 Manuel [place] Rate: 100 l 1,000 mL 19:03: ml/hr, [...] L 1,000 mL, M emoria Chloride 3-13 Sinclair Rate: l 0.9% 10:41: 1,000 Vin (Bolus) [...] L 1,000 mL, M emoria Chloride - [place] Rate: l 0.9% 08:42: 1,000 Vin (Bolus) IV 00 ml/hr, 1000 mL Infuse over: 1 hr, Route: IV, Dosing Weight 68.182 kg, Total Volume: 1,000, Bolus Dose, Priority: STAT, Start date: 09/01/11 3:42:00, Duration: 1 doses or times, Stop date: 09/01/11 4:41:00 Insulin 2011- No Bee L 8 unit, Me moria regular 08-31 Cruzito 0.08 mL, l 08:30: Route: [place] 00 IVP, Drug form: SOLN, ONCE, Priority: [...] 3-04 Akmal tab, l 15:00: Route: PO, [place] 00 Drug form: ERTAB, BID, Start date: [...] Akmal SUB-Q, l units/mL 14:42: BID, 3 [place] subcutaneou 04 vial, 3, s injection 3, Substituti on Allowed, SUSP insulin Yes Velásquez Noam 5 Units, Memoria regular 3-04 Akmal SUB-Q, l human 14:40: TID, 30 Vin recombinant 10 vial, 3, 100 3, units/mL Substituti injectable on solution Allowed, before breakfast lunch and dinner, [facility] and dinner potassium No Velásquez Noam 20 mEq, Memoria chloride 3-04 Akmal 100 mL, l 14:00: Route: Vin 00 IVPB, Drug form: INJ, Q2H, Start date: 08/23/11 8:00:00, Duration: 2 doses or times, Stop date: 08/23/11 10:00:00 calcium No Velásquez Noam 1 gm, Mem oria chloride 3-04 Akmal Route: l 13:28: IVPB, ONCE, Priority: STAT, Start date: 08/23/11 7:28:00, Stop date: 08/23/11 7:28:00 potassium No Velásquez Noam 40 mEq, Memoria chloride 3-04 Akmal Route: IV, l 12:29: ONCE, Vin 00 Start date: 08/23/11 6:29:00, Stop date: 08/23/11 6:29:00 potassium No Velásquez Noam 60 mEq, 3 Memoria [...] Rodriguez 10 mL, l 16:25: Ahmed Route: [place] 00 IVPB, ONCE, Start date: 08/22/11 10:25:00, [...] l 03:00: Rivero Route: PO, H ermann Drug form: CAP, Bedtime, Start date: 08/21/11 21:00:00, Duration: 30 day, Stop date: 09/19/11 21:00:00 lisinopril 2011-0 No Yury 10 mg, 1 Memoria 3-02 Gato tab, l 20:06: Rivero Route: PO, H ermann Drug form: TAB, ONCE, Start date: 08/21/11 14:06:00, Stop date: 08/21/11 14:06:00 potassium 2011-0 No Yury 20 mEq, Me moria chloride 3-02 Gato 100 mL, l 15:12: Rivero Route: Nidia nn 00 IVPB, Drug form: INJ, ONCE, Start date: 08/21/11 9:12:00, Stop date: 08/21/11 9:12:00 lisinopril 2011-0 No Velásquez Noam 40 mg, 2 Memoria 3-02 Akmal tab, l 15:00: Route: PO, [place] 00 Drug form: TAB, Daily, Start date: 08/21/11 9:00:00, Stop date: 09/19/11 9:00:00 hydrALAZINE 2011-0 No Yury 10 mg, 0.5 Memoria -02 Gato mL, Route: l 14:43: Rivero IVP, [...] 2011-0 No Yury 10 unit, Mem oria isophane-TRACK MAN 3- Gato Route: l H 16:00: Rivero SUB-Q, Nidia nn 00 ONCE, Start date: 08/20/11 10:00:00, Stop date: 08/20/11 10:00:00 trazodone 2012-0 Yes 200 mg, 2 Mem oria 100 mg oral 3-01 tab, PO, l tablet 15:37: Bedtime, Vin 27 90 tab, Substituti on Allowed, TAB benztropine 2011-0 Yes 1 mg, 1 Mem oria 1 mg oral 3-01 tab, PO, l tablet 15:35: BID, 60 [place] 25 tab, Substituti on Allowed, TAB Geodon 60 2011-0 Yes 120 mg, 2 Mem oria mg oral 3-01 cap, PO, l capsule 15:35: Bedtime, Jake n 12 60 cap, Substituti on Allowed, CAP insulin 2011-0 No Yury 10 unit, Mem oria isophane-TRACK MAN 3- Gato Route: l H 15:00: Rivero [...] Allowed insulin No 10 unit, Memori a isophane-TRACK MAN 3- SUB-Q, l H 09:26: BID, Vin 18 Substituti on Allowed NS 1,000 mL No Velásquez Noam 1,000 mL, Memoria 3-01 [...] 2011- No Yury 40 mg, 0.4 Memoria 3- Gato mL, Route: l 09:00: Rivero SUB-Q, Nidia nn Drug form: INJ, Daily, Priority: Routine, Start date: 08/20/11 3:00:00, Duration: 30 day, Stop date: 09/18/11 9:00:00 insulin 2011-0 No Yury 18 unit, Mem oria isophane-TRACK MAN 3- G[place] 0.18 mL, l H 08:58: [...] 30 day, Stop date: 09/19/11 3:47:00 Dextrose 0 No Yury 25 gm, 50 M emoria 50% Syringe 08-19 Gato mL, Route: l 08:48: Rivero IVP, Drug He rmann Form: INJ, [...] 09/19/11 3:45:00 ondansetron No Hughes-Jason 4 mg, emoria 08-19 Wat[place] Route: l 07:42: Dawson IVP, Drug Herm naeem 00 Pu form: INJ, ONCE, Priority: STAT, Start date: 08/20/11 1:42:00, Stop date: 08/20/11 1:42:00 GI cocktail No Hughes-Jason 30 ml, Memoria 08-19 Wat[place] Route: PO, l 05:12: Eunice Drug Form: Her braden 00 Pu SUSP, ONCE, STAT, Start date: 08/19/11 23:12:00, Stop date: 08/19/11 23:12:00 ondansetron 0 No [facility] 4 [facility] [place] Route: PO, l 05:10: Dawson Drug form: Her braden 00 Pu TABDIS, ONCE, Priority: STAT, Start date: 08/19/11 23:10:00, Stop date: 08/19/11 23:10:00 Lactated 2011-0 No Hughes-Jason 1,000 mL, Memoria Ringers 3-01 [place] Rate: l (Bolus) IV 05:10: Dawson 1,000 He rmann 1000 mL 00 Pu ml/hr, Infuse over: 1 hr, Route: IV, Total Volume: 1,000, Bolus Dose, Priority: STAT, Start date: 08/19/11 23:10:00, Duration: 1 doses or times, Stop date: 08/20/11 0:09:00 Insulin 2011- No Hughes-Jason 7 unit, Mem oria regular 08-19 [place] 0.07 mL, l 04:15: Dawson Route: Vin [...] 30 day, Stop date: 09/18/11 17:02:00 Sodium 2011-0 No Yury 100 mL, Memor ia Chloride 2-29 Gato Rate: l 0.9% 22:17: Rivero Titrate, Her braden (titrate) 00 Route: IV, 100 mL + Total Insulin Volume: (regular) 100 ml, Titrate IV Duration: additive 30 day, 100 unit Stop date: 09/18/11 16:16:00, Replace Every: 24 hr GI cocktail 2011-0 No William 40 mL, Me moria - [...] Wong Route: IV, l 21:57: Pooja ONCE, Ivn 00 Start date: 08/19/11 15:57:00, Stop date: [...] 2020-02-20 [facility]pleted [facility]:00[facility]00 [facility] Influenza Virus 2020-02-20 Completed [facility] Vaccine 00:00:00 [facility] TDAP (ADACEL) VACCINE 2019-07-25 Completed [facility] vers[facility] of 00:00:00 [facility] Meningococcal B, OMV 2019-07-25 Completed [facility] ersity of 00:00:00 [facility] Meningococcal 2019-07-25 Completed [facility] Polysaccharide 00:00:00 [facility] (groups A, C, Y and Branc h W-135) conjugate vaccine (MCV4P) TDAP (ADACEL) VACCINE 2019-07-25 Completed [facility] vers[facility] of 00:00:00 [facility] Meningococcal B, OMV 2019-07-25 Completed [facility] ersity of 00:00:00 [facility] Meningococcal 2019-07-25 Completed [facility] Polysaccharide 00:00:00 [place] [facility] (groups A, C, Y and Branc h W-135) conjugate vaccine (MCV4P) Influenza Virus 2019-02-27 Completed [facility] Vaccine Quad .5 mL IM 00:00:00 [facility] 6[facility] [place] [facility] Influenza Virus 2019-02-27 Completed [facility] Vaccine Quad .5 mL IM 00:00:00 [facility] [place] [facility] hepatitis B vaccine 2018-04-07 Completed Alonso Banuelos 00:00:00 influenza virus 2018-03-29 Completed Shahid Banuelos vaccine, inactivated 00:00:00 hepatitis B vaccine 2017-11-26 Completed Alonso Banuelos 00:00:00 influenza virus 2017-10-25 Completed Shahid Banuelos vaccine, inactivated 00:00:00 pneumococcal 2017-10-25 Completed Shahid braden 23-valent vaccine 00:00:00 Influenza Virus 2017-06-22 Completed [facility] Vaccine Quad IM 3+ 00:00:00 [facility] Influenza Virus 2017-06-22 Completed [facility] Vaccine Quad IM 3+ 00:00:00 [facility] Influenza Virus 2016-04-02 Completed [facility] Vaccine Quad IM 3+ 00:00:00 [facility] Influenza Virus 2016-04-02 Completed [facility] of Vaccine Quad IM 3+ 00:00:00 [facility] Influenza Virus 2015-10-28 Completed [facility] of Vaccine Quad IM 3+ 00:00:00 [facility] Influenza Virus 2015-10-28 Completed [facility] of Vaccine Quad IM 3+ 00:00:00 [facility] Vital Signs Vital Name Observation Time Observation [...] 28.17 [facility]m2 [facility] 2020-06-27 16:33:00 171 mm[Hg] [facility] Diastolic blood 2020-06-27 16:33:00 98 mm[Hg] [facility] Heart rate 2020-06-27 16:33:00 71 /min [facility] Respiratory rate 2020-06-27 16:29:00 19 /min [facility] Body height 2020-06-27 16:29:00 154.9 [facility] Body weight 2020-06-27 16:29:00 77.293 kg [facility] BMI 2020-06-27 16:29:00 32.20 kg/m2 [facility] Oxygen saturation in 2020-06-27 16:29:00 99 /min University Arterial blood by [facility] Pulse oximetry Branch Height/Length 2021-07-08 11:50:13 154.9 cm Measured Weight Dosing 2021-07-08 11:50:13 85.00 kg Height/Length 2021-07-08 11:47:31 154.9 cm Measured Weight Dosing 2021-07-08 11:47:31 85.00 kg Height/Length 2021-07-08 11:47:20 154.9 cm Measured Weight Dosing 2021-07-08 11:47:20 85.00 kg Systolic blood 2021-07-08 19:43:00 189 mm[Hg] [facility] pressure Diastolic blood 2021-07-08 19:43:00 104 mm[Hg] [facility] pressure Heart rate 2021-07-08 18:56:00 74 /min [facility] Body temperature 2021-07-08 18:56:00 36.39 Cathleen [facility] Body height 2021-07-08 18:56:00 157.5 cm [facility] Body weight 2021-07-08 18:56:00 72.938 kg [facility] BMI 2021-07-08 18:56:00 29.41 kg/m2 [facility] Oxygen saturation in 2021-07-08 18:56:00 100 /min [facility] Arterial blood by Pulse oximetry Respiratory rate 2021-06-18 16:36:00 11 /min [facility] [facility] Systolic (mm Hg) 2021-01-29 20:03:00 M[place]za rial [place] Diastolic (mm Hg) 2021-01-29 20:03:00 [facility] [place] Systolic (mm Hg) 2021-01-29 19:40:00 [place] rial [place] Diastolic (mm Hg) 2021-01-29 19:40:00 Mem orial Vin Systolic (mm Hg) 2021-01-29 18:05:00 [place] rial Vin Diastolic (mm Hg) 2021-01-29 18:05:00 Mem [facility] Vin Respitory Rate 2021-01-29 16:55:00 Memori al Vin Temperature Oral (F) 2021-01-29 16:45:00 97.3 F [facility] Respitory Rate 2021-01-29 16:45:00 [facility] [place] Respitory Rate 2021-01-29 16:30:00 Memori al Vin Temperature Oral (F) 2021-01-29 13:10:00 97.6 F [facility] [place] Systolic (mm Hg) 2021-01-27 05:00:00 [place] [facility] [place] Diastolic (mm Hg) 2021-01-27 05:00:00 Mem orial Vin Systolic (mm Hg) 2021-01-27 04:00:00 [place] [facility] [place] Diastolic (mm Hg) 2021-01-27 04:00:00 [facility] [place] Systolic (mm Hg) 2021-01-27 03:00:00 M[place]za rial Vin Diastolic (mm Hg) 2021-01-27 03:00:00 [facility] [place] Respitory Rate 2021-01-26 19:00:00 [facility] [place] Respitory Rate 2021-01-26 18:00:00 [facility] [place] Respitory Rate 2021-01-26 17:00:00 Memori al Vin Temperature Oral (F) 2021-01-22 13:00:00 97.6 F [facility] Height 2021-01-21 18:25:00 149.86 cm [facility] Weight 2021-01-21 18:25:00 [facility] [place] BMI Calculated 2021-01-21 18:25:00 Memori al Vin Height 2021-01-21 17:09:00 157.48 cm [facility] Height 2021-01-21 13:09:00 157.48 cm [facility] Weight 2021-01-21 13:09:00 [facility] BMI Calculated 2021-01-21 13:09:00 Memori al Vin Heart Rate 2021-01-21 12:50:00 [facility] [place] Systolic (mm Hg) 2020-12-24 15:43:00 Mendoza rial Vin Diastolic (mm Hg) 2020-12-24 15:43:00 [facility] [place] Heart Rate 2020-12-24 15:43:00 [facility] [place] Height 2020-12-24 15:43:00 154.94 cm [facility] Weight 2020-12-24 15:43:00 [facility] [place] BMI Calculated 2020-12-24 15:43:00 Memori al Vin Systolic (mm Hg) 2016-07-30 14:00:00 [place] rial [place] Diastolic (mm Hg) 2016-07-30 14:00:00 [facility] [place] Respitory Rate 2016-07-30 14:00:00 Memori al Vin Heart Rate 2016-07-30 14:00:00 [facility] [place] Temperature Oral (F) 2016-07-30 14:00:00 97.4 F [facility] Systolic (mm Hg) 2016-07-30 10:45:00 [place] rial [place] Diastolic (mm Hg) 2016-07-30 10:45:00 [facility] [place] Heart Rate 2016-07-30 10:45:00 [facility] [place] Temperature Oral (F) 2016-07-30 10:45:00 97.2 F [facility] [place] Respitory Rate 2016-07-30 10:45:00 [facility] [place] Heart Rate 2016-07-30 06:35:00 [facility] [place] Temperature Oral (F) 2016-07-30 06:35:00 97.0 F [facility] Respitory Rate 2016-07-30 06:35:00 Memori al Vin Systolic (mm Hg) 2016-07-30 06:35:00 [place] [facility] [place] Diastolic (mm Hg) 2016-07-30 06:35:00 Mem orial Vin Weight 2016-07-24 02:13:00 [facility] [place] BMI Calculated 2016-07-24 02:13:00 Memori al Vin Height 2016-07-24 02:13:00 160.02 cm [facility] Respitory Rate 2016-06-15 15:00:00 [facility] [place] Systolic (mm Hg) 2016-06-15 15:00:00 [place] rial [place] Diastolic (mm Hg) 2016-06-15 15:00:00 Mem orial Vin Respitory Rate 2016-06-15 14:00:00 [facility] [place] Systolic (mm Hg) 2016-06-15 14:00:00 M[place] rial Vin Diastolic (mm Hg) 2016-06-15 14:00:00 Mem orial Vin Respitory Rate 2016-06-15 13:29:00 [facility] [place] Systolic (mm Hg) 2016-06-15 13:29:00 M[place]za rial Vin Diastolic (mm Hg) 2016-06-15 13:29:00 [facility] [place] Temperature Oral (F) 2016-06-14 10:56:00 97.1 F [facility] [place] Temperature Oral (F) 2016-06-14 06:55:00 97.1 F [facility] Temperature Oral (F) 2016-06-12 10:00:00 96.8 F [facility] Weight 2016-06-11 04:25:00 [facility] Height 2016-06-11 04:25:00 160.02 cm [facility] [place] BMI Calculated 2016-06-11 04:25:00 [facility] [place] Heart Rate 2016-06-11 02:04:00 [facility] Heart Rate 2016-06-11 00:00:00 [facility] Heart Rate 2016-06-10 20:30:00 [facility] Weight 2016-06-10 16:04:00 [facility] [place] BMI Calculated 2016-06-10 16:04:00 [facility] [place] Height 2016-06-10 16:04:00 160.02 cm [facility] Temperature Oral (F) 2014-06-26 15:12:00 98.0 F [facility] [place] Systolic (mm Hg) 2014-06-26 15:12:00 M[facility] rial Vin Heart Rate 2014-06-26 15:12:00 [facility] [place] Diastolic (mm Hg) 2014-06-26 15:12:00 [facility] [place] Respitory Rate 2014-06-26 15:12:00 Memori al Vin Systolic (mm Hg) 2014-06-26 13:53:00 [place] [facility] [place] Diastolic (mm Hg) 2014-06-26 13:53:00 Mem orial Vin Respitory Rate 2014-06-26 13:53:00 [facility] [place] Temperature Oral (F) 2014-06-26 13:53:00 98.0 F [facility] [place] Temperature Oral (F) 2014-06-26 12:37:00 98.2 F [facility] [place] Respitory Rate 2014-06-26 12:37:00 [facility] [place] Systolic (mm Hg) 2014-06-26 12:37:00 M[place]za rial Vin Diastolic (mm Hg) 2014-06-26 12:37:00 Mem orial Vin Heart Rate 2014-06-26 09:21:00 [facility] [place] Heart Rate 2014-06-26 06:08:00 [facility] Height 2014-06-26 05:35:00 154.94 cm [facility] Weight 2014-06-26 05:35:00 [facility] BMI Calculated 2014-06-26 05:35:00 [facility] [place] Respitory Rate 2013-04-15 06:10:00 Memori al Vin Diastolic (mm Hg) 2013-04-15 06:10:00 Mem orial Vin Heart Rate 2013-04-15 06:10:00 [facility] Systolic (mm Hg) 2013-04-15 06:10:00 [place] [facility] [place] Temperature Oral (F) 2013-04-15 06:10:00 98.7 F [facility] [place] Respitory Rate 2013-04-15 05:37:00 Memori al Vin Diastolic (mm Hg) 2013-04-15 05:37:00 Mem o[facility] Vin Systolic (mm Hg) 2013-04-15 05:37:00 [place] [facility] [place] Temperature Oral (F) 2013-04-15 05:37:00 98.2 F [facility] Heart Rate 2013-04-15 05:37:00 [facility] [place] Height 2013-04-15 02:06:00 160.02 cm [facility] [place] Weight 2013-04-15 02:06:00 [facility] Temperature Oral (F) 2013-04-15 02:06:00 98.6 F [facility] Respitory Rate 2013-04-15 02:06:00 Memori al Vin Heart Rate 2013-04-15 02:06:00 [facility] [place] Diastolic (mm Hg) 2013-04-15 02:06:00 [facility] [place] Systolic (mm Hg) 2013-04-15 02:06:00 [facility] [place] Weight 2012-03-14 21:33:00 [facility] [place] Systolic (mm Hg) 2011-12-01 00:33:00 [facility] rial Vin Respitory Rate 2011-12-01 00:33:00 Mem[facility] al Vin Heart Rate 2011-12-01 00:33:00 [facility] [place] Diastolic (mm Hg) 2011-12-01 00:33:00 Mem orial Vin Temperature Oral (F) 2011-12-01 00:33:00 99.6 F [facility] Diastolic (mm Hg) 2011-11-30 21:00:00 Mem orial Vin Heart Rate 2011-11-30 21:00:00 [facility] Respitory Rate 2011-11-30 21:00:00 [facility] [place] Systolic (mm Hg) 2011-11-30 21:00:00 M[facility]za rial Vin Temperature Oral (F) 2011-11-30 21:00:00 99.8 F [facility] Respitory Rate 2011-11-30 16:30:00 Memori al Vin Systolic (mm Hg) 2011-11-30 16:30:00 [place] [facility] [place] Diastolic (mm Hg) 2011-11-30 16:30:00 Mem orial Vin Heart Rate 2011-11-30 16:30:00 [facility] [place] Temperature Oral (F) 2011-11-30 16:30:00 99.8 F [facility] Weight 2011-11-29 11:40:00 [facility] [place] Height 2011-11-29 11:40:00 157.48 cm [facility] [place] Weight 2011-11-28 17:16:00 [facility] [place] Weight 2011-09-18 13:30:00 [facility] [place] Height 2011-09-18 13:30:00 154.94 cm [facility] [place] Heart Rate 2011-09-09 13:31:00 [facility] [place] Systolic (mm Hg) 2011-09-09 13:02:00 [place] [facility] [place] Diastolic (mm Hg) 2011-09-09 13:02:00 [facility] [place] Respitory Rate 2011-09-09 13:02:00 Memori al Vin Temperature Oral (F) 2011-09-09 13:02:00 97.5 F [facility] [place] Diastolic (mm Hg) 2011-09-09 08:00:00 Mem orial Vin Heart Rate 2011-09-09 08:00:00 [facility] [place] Temperature Oral (F) 2011-09-09 08:00:00 98.6 F [facility] [place] Respitory Rate 2011-09-09 08:00:00 Memori al [facility] Systolic (mm Hg) 2011-09-09 08:00:00 [place] [facility] [place] Respitory Rate 2011-09-09 04:55:00 Memori al Vin Diastolic (mm Hg) 2011-09-09 04:55:00 [facility] [place] Systolic (mm Hg) 2011-09-09 04:55:00 [place] [facility] [place] Heart Rate 2011-09-09 04:55:00 [facility] Temperature Oral (F) 2011-09-09 00:55:00 98.7 F [facility] Weight 2011-09-01 19:59:00 [facility] Height 2011-09-01 19:59:00 154.94 cm [facility] [place] Height 2011-09-01 07:01:00 154.94 cm [facility] [place] Weight 2011-09-01 07:01:00 [facility] Respitory Rate 2011-08-23 18:00:00 Mem[facility] al Vin Heart Rate 2011-08-23 18:00:00 [facility] Systolic (mm Hg) 2011-08-23 18:00:00 [place] [facility] [place] Diastolic (mm Hg) 2011-08-23 18:00:00 [facility] [place] Temperature Oral (F) 2011-08-23 18:00:00 97.7 F [facility] [place] Heart Rate 2011-08-23 14:24:00 [facility] [place] Temperature Oral (F) 2011-08-23 14:24:00 98.2 F [facility] Diastolic (mm Hg) 2011-08-23 14:24:00 Mem o[facility] Vin Systolic (mm Hg) 2011-08-23 14:24:00 [place] [facility] [place] Respitory Rate 2011-08-23 14:24:00 Memori al Vin Systolic (mm Hg) 2011-08-23 11:15:00 [facility] rial Vin Diastolic (mm Hg) 2011-08-23 11:15:00 Mem orial Vin Temperature Oral (F) 2011-08-23 11:00:00 98.3 F [facility] [place] Heart Rate 2011-08-23 11:00:00 [facility] Respitory Rate 2011-08-22 22:00:00 [facility] [place] Height 2011-08-20 09:12:00 154.94 cm [facility] [place] Weight 2011-08-20 09:12:00 [facility] [place] Height 2011-08-19 20:28:00 154.94 cm [facility] Weight 2011-08-19 20:28:00 [facility] [place] Procedures Procedure Date / Time Performing Clinician Source Performed POC GLUCOSE 2021-06-18 17:00:00 Aurelio Schumacher spital HEPATITIS B SURFACE 2021-06-18 14:07:00 Kenneth [facility] ANTIGEN VANCOMYCIN LEVEL, RANDOM 2021-06-18 13:44:00 [facility] HC COMPLETE BLD COUNT 2021-06-18 13:44:00 Endy [facility] W/AUTO DIFF BASIC METABOLIC PANEL 2021-06-18 11:27:00 [facility] ESTIMATED GFR 2021-06-18 11:27:00 Aurelio Schumacher Ho spital POC GLUCOSE 2021-06-18 08:07:00 Aurelio Schumacher [facility] HEMODIALYSIS 2021-06-18 06:16:53 Bill Cooper spital POC GLUCOSE 2021-06-18 01:26:00 Aurelio Schumacher [facility] POC GLUCOSE 2021-06-17 21:58:00 Aurelio Schumacher [facility] HEMODIALYSIS 2021-06-17 18:25:45 Bill Cooper spital POC GLUCOSE 2021-06-17 17:36:00 Aurelio Schumacher [facility] POC GLUCOSE 2021-06-17 13:51:00 Aurelio Schumacher Ho spital BASIC METABOLIC PANEL 2021-06-17 11:16:00 [facility] HC COMPLETE BLD COUNT 2021-06-17 11:16:00 [facility] W/AUTO DIFF ESTIMATED GFR 2021-06-17 11:16:00 [facility] POC GLUCOSE 2021-06-17 02:50:00 [facility] CONSULT TO OSTOMY CARE 2021-06-17 00:31:48 [facility] NURSE HC COMPLETE BLD COUNT 2021-06-16 23:31:00 [facility] W/AUTO DIFF BASIC METABOLIC PANEL 2021-06-16 23:31:00 [facility] ESTIMATED GFR 2021-06-16 23:31:00 [facility] POC GLUCOSE 2021-06-16 23:19:00 [facility] OR [place] < 1 HOUR 2021-06-16 22:49:00 [facility] 2021-06-16 22:36:00 Kaci Diazlie [facility] FUNGUS CULTURE 2021-06-16 22:36:00 [facility] 2021-06-16 22:36:00 [facility] 2021-06-16 22:36:00 [facility] AN ELECTIVE 2021-06-16 21:30:00 Jocelyne Zepeda [facility] SUPRAGLOTTIC AIRWAY AORTOGRAPHY, POSSIBLE 2021-06-16 21:17:00 Mando Diaz [facility] ANGIOPLASTY [facility] POC , URINE 2021-06-16 20:46:00 Veto [facility] POTASSIUM LEVEL 2021-06-16 17:28:00 Isabell Dickerson [facility] Larry Romero POC GLUCOSE 2021-06-16 11:39:00 [facility] BASIC METABOLIC PANEL 2021-06-16 10:08:00 [facility] COM[facility]TE [facility] 2021-06-16 10:08:00 [facility] W/AUTO DIFF PROTHROMBIN TIME WITH INR 2021-06-16 10:08:00 [facility] PARTIAL THROMBOPLASTIN 2021-06-16 10:08:00 [facility] TIME (PTT) TYPE AND SCREEN 2021-06-16 10:08:00 [facility] ESTIMATED GFR 2021-06-16 10:08:00 [facility] POC GLUCOSE 2021-06-16 01:59:00 [facility] POC GLUCOSE 2021-06-15 22:58:00 [facility] COVID-19 QUALITATIVE 2021-06-15 19:29:00 Wander Elizabethmaria luisa [facility] RT-PCR POC GLUCOSE 2021-06-15 17:42:00 [facility] HEMODIALYSIS 2021-06-15 16:17:54 Delfino Akbar [facility] POC GLUCOSE 2021-06-15 15:41:00 [facility] POC GLUCOSE 2021-06-15 13:44:00 [facility] POC GLUCOSE 2021-06-15 13:00:00 [facility] ECG 12-LEAD 2021-06-15 12:48:21 Leni Barkertal HC COMPLETE BLD COUNT 2021-06-15 11:42:00 [facility] W/AUTO DIFF BASIC METABOLIC PANEL 2021-06-15 11:42:00 [facility] ESTIMATED GFR 2021-06-15 11:42:00 [facility] POC GLUCOSE 2021-06-15 01:31:00 [facility] US DUPLEX ARTERIAL LOWER 2021-06-14 21:55:33 [facility] EXTREMITY RIGHT POC GLUCOSE 2021-06-14 21:51:00 [facility] POC GLUCOSE 2021-06-14 17:36:00 [facility] POC GLUCOSE 2021-06-14 13:30:00 [facility] POC GLUCOSE 2021-06-14 13:29:00 [facility] HC COMPLETE BLD COUNT 2021-06-14 10:13:00 [facility] W/AUTO DIFF BASIC METABOLIC PANEL 2021-06-14 10:13:00 [facility] ESTIMATED GFR 2021-06-14 10:13:00 [facility] POC GLUCOSE 2021-06-14 02:45:00 [facility] POC GLUCOSE 2021-06-13 21:47:00 [facility] POC GLUCOSE 2021-06-13 20:46:00 [facility] CBC WITH PLATELET AND 2021-06-13 16:10:00 [facility] DIFFERENTIAL COMPREHENSIVE METABOLIC 2021-06-13 16:10:00 [facility] PANEL ESTIMATED GFR 2021-06-13 16:10:00 [facility] HEMODIALYSIS 2021-06-13 15:26:35 [facility] POC GLUCOSE 2021-06-13 14:30:00 [facility] VANCOMYCIN LEVEL, RANDOM 2021-06-13 10:59:[address] [facility] POC GLUCOSE 2021-06-13 10:40:00 [facility] POC GLUCOSE 2021-06-13 02:28:00 [facility] POC GLUCOSE 2021-06-13 00:16:00 [facility] POC GLUCOSE 2021-06-12 23:31:00 [facility] POC GLUCOSE 2021-06-12 23:14:00 [facility] POC GLUCOSE 2021-06-12 18:19:00 [facility] POC GLUCOSE 2021-06-12 14:37:00 [facility] POC GLUCOSE 2021-06-12 14:01:00 [facility] POC GLUCOSE 2021-06-12 03:03:00 [facility] 2021-06-12 00:53:00 [facility] 2021-06-11 18:08:00 [facility] POC GLUCOSE 2021-06-11 13:39:00 Nagel, Holden [facility] [place] HEMODIALYSIS 2021-06-11 12:38:38 Naomie Dickelmo [facility] POC GLUCOSE 2021-06-11 02:01:00 Nagel, [facility]en [facility] [place] POC GLUCOSE 2021-06-10 22:15:00 Nagel, Holden [facility] [place] POC GLUCOSE 2021-06-10 17:39:00 Nagel, Holden [facility] [place] POC GLUCOSE 2021-06-10 16:05:00 Nagel, Holdentrip Whyte spital [place] GRAM STAIN 2021-06-10 15:08:00 Pati, Juwan Whyte spital TISSUE CULTURE 2021-06-10 15:08:00 Pati, Juwancaron Whyte spital ANAEROBIC CULTURE 2021-06-10 15:04:00 Pati, [facility] FUNGUS CULTURE 2021-06-10 15:04:00 Pati, Juwan Whyte spital AEROBIC CULTURE 2021-06-10 15:04:00 Pati, Juwan Whyte spital AFB CULTURE 2021-06-10 15:04:00 Pati, Juwan Whyte spital GRAM STAIN 2021-06-10 15:04:00 Pati, Juwan Whyte spital AFB STAIN 2021-06-10 15:04:00 Pati, Juwancaron Whyte spital CT AN ELECTIVE 2021-06-10 14:26:00 Sofi Roach spital SUPRAGLOTTIC AIRWAY Marquita INCISION AND DRAINAGE, 2021-06-10 14:26:00 [facility] LOWER EXTREMITY HC COMPLETE BLD COUNT 2021-06-10 10:20:00 , [facility] W/AUTO DIFF BASIC METABOLIC PANEL 2021-06-10 10:20:[address] [facility] PROTHROMBIN TIME WITH INR 2021-06-10 10:20:00 [facility] PARTIAL THROMBOPLASTIN 2021-06-10 10:20:00 [facility] TIME (PTT) TYPE AND SCREEN 2021-06-10 10:20:00 Robe, Holden Whyte Ho spital [place] ESTIMATED GFR 2021-06-10 10:20:00 Juwan Krueger Ho spital POC GLUCOSE 2021-06-10 03:11:00 Nagel, Holden Whyte Ho spital [place] POC GLUCOSE 2021-06-10 01:30:00 Nagel, Holden Ferrara spital [place] POC GLUCOSE 2021-06-09 22:22:00 Nagel, Holden Whyte Ho spital [place] POC GLUCOSE 2021-06-09 13:55:00 Nagel, Holden Whyte Ho spital [place] HEMODIALYSIS 2021-06-09 13:20:01 [facility] VANCOMYCIN LEVEL, RANDOM 2021-06-09 11:46:00 [facility] POC GLUCOSE 2021-06-09 02:06:00 Robe, Holden Ferrara spital [place] POC GLUCOSE 2021-06-08 22:23:00 Nagel, Holden Whyte Ho spital [place] POC GLUCOSE 2021-06-08 17:53:00 Nagel, Holden Ferrara spital [place] HC COMPLETE BLD COUNT 2021-06-08 16:06:00 [facility] W/AUTO DIFF POC GLUCOSE 2021-06-08 13:56:00 Holden Nagel spital [place] URINE CULTURE 2021-06-08 03:56:00 Holden Nagel spital [place] URINALYSIS SCREEN AND 2021-06-08 03:32:00 [facility] MICROSCOPY, WITH REFLEX TO CULTURE POC GLUCOSE 2021-06-08 01:15:00 Robe, Holden Ferrara spital [place] POC GLUCOSE 2021-06-07 22:07:00 Nagel, Holden Ferrara spital [place] POC GLUCOSE 2021-06-07 18:01:00 Holden Nagel Ho spital [place] BASIC METABOLIC PANEL 2021-06-07 14:15:00 [facility] ESTIMATED GFR 2021-06-07 14:15:00 Nagel Holden Whyte Ho spital [place] POC GLUCOSE 2021-06-07 13:56:00 Nagel, Holden [facility] [place] POC GLUCOSE 2021-06-07 02:54:00 Nagel, Holden Whyte Ho spital [place] CT LOWER EXTREMITY W 2021-06-07 01:22:59 [facility] CONTRAST RIGHT POC GLUCOSE 2021-06-06 23:50:00 NagelHolden rodriguez Ho spital [place] POC GLUCOSE 2021-06-06 17:31:00 Nagel, Holden Whyte Ho sp[facility] [place] HEMODIALYSIS 2021-06-06 15:05:52 [facility] POC GLUCOSE 2021-06-06 14:03:00 Holden Nagel Ho spital [place] HC COMPLETE BLD COUNT 2021-06-06 10:31:00 [facility] W/AUTO DIFF BASIC METABOLIC PANEL 2021-06-06 10:31:00 [facility] ESTIMATED GFR 2021-06-06 10:31:00 Holden Nagel Ho spital [place] POC GLUCOSE 2021-06-06 10:14:00 Holden Nagel Ho sp[facility] [place] POC GLUCOSE 2021-06-06 06:26:00 Holden Nagel Ho sp[facility] [place] POC GLUCOSE 2021-06-06 02:41:00 Holden Nagel Ho spital [place] POC GLUCOSE 2021-06-05 19:51:00 NagelHolden rodriguez Ho spital [place] BASIC METABOLIC PANEL 2021-06-05 18:06:00 [facility] HC COMPLETE BLD COUNT 2021-06-05 18:06:00 [facility] W/AUTO DIFF ESTIMATED GFR 2021-06-05 18:06:00 Holden Nagel Ho sp[facility] [place] POC GLUCOSE 2021-06-05 17:48:00 Holden Nagel Ho sp[facility] [place] ANAEROBIC CULTURE 2021-06-05 17:10:00 Pati, [facility] ANAEROBIC CULTURE 2021-06-05 16:59:00 Pati, [facility] FUNGUS CULTURE 2021-06-05 16:59:00 Pati, [facility] spital AEROBIC CULTURE 2021-06-05 16:59:00 Pati, [facility] spital AFB CULTURE 2021-06-05 16:59:00 Pati, [facility] spital FUNGUS SMEAR 2021-06-05 16:59:00 Pati, [facility] spital AFB STAIN 2021-06-05 16:59:00 Pati, [facility] spital CT AN ELECTIVE 2021-06-05 16:52:08 Herrera [facility] SUPRAGLOTTIC AIRWAY TISSUE CULTURE 2021-06-05 16:50:00 [facility] 2021-06-05 16:50:00 [facility] DEBRID[facility], LOWER 2021-06-05 16:16:00 Pati [facility] EXTREMITY POC GLUCOSE 2021-06-05 13:32:00 [facility] TROPONIN T 2021-06-05 10:58:00 [facility] ospital ABO AND RH CONFIRMATION 2021-06-05 10:54:00 [facility] BASIC METABOLIC PANEL 2021-06-05 10:53:00 [facility] HC COMPLETE BLD COUNT 2021-06-05 10:53:00 [facility] W/AUTO DIFF ESTIMATED GFR 2021-06-05 10:53:00 Sivan Stewart [facility] PROTHROMBIN TIME WITH INR 2021-06-05 10:52:00 [facility] PARTIAL THROMBOPLASTIN 2021-06-05 10:52:00 [facility] TIME (PTT) HCG QUALITATIVE, SERUM 2021-06-05 10:52:00 Myron Fernandes [facility] SCREEN POC GLUCOSE 2021-06-05 09:40:00 Dhaliwal, Carlos [facility] [place] BLOOD CULTURE, AEROBIC & 2021-06-05 08:27:00 Carlos Dhaliwal [facility] ANAEROBIC Vipin POC GLUCOSE 2021-06-05 07:42:00 Carlos Dhaliwal Ho spital [place] POC GLUCOSE 2021-06-05 06:57:00 Carlos Dhaliwal Ho spital [place] POC GLUCOSE 2021-06-05 06:10:00 NagelHolden Ho spital [place] BLOOD CULTURE, AEROBIC & 2021-06-05 04:31:00 Carlos Dhaliwal [facility] ANAEROBIC [place] POC GLUCOSE 2021-06-05 04:04:00 Carlos Dhaliwal Ho spital [place] POC GLUCOSE 2021-06-05 03:51:00 Carlos Dhaliwal Ho sp[facility] [place] TYPE AND SCREEN 2021-06-05 03:40:00 Carlos Dhaliwal Ho spital [place] POC GLUCOSE 2021-06-05 03:05:00 Carlos Dhaliwal Ho spital [place] POC GLUCOSE 2021-06-05 02:23:00 Carlos Dhaliwal Ho spital [place] COVID-19 QUALITATIVE 2021-06-05 02:08:00 [facility] COMPLETE BLD COUNT 2021-06-05 01:24:00 SamantaSivan [facility] W/AUTO DIFF PROTHROMBIN TIME WITH INR 2021-06-05 01:24:00 [facility] PARTIAL THROMBOPLASTIN 2021-06-05 01:24:00 hollySivan [facility] TIME (PTT) COMPREHENSIVE METABOLIC 2021-06-05 01:24:00 hollySivan [facility] PANEL CREATINE KINASE, TOTAL 2021-06-05 01:24:00 [facility] NATRIURETIC PEPTIDE 2021-06-05 01:24:00 SamantaSivan [facility] TROPONIN T 2021-06-05 01:24:00 Char Viramontes [facility] ospital ESTIMATED GFR 2021-06-05 01:24:00 Sivan Stewart [facility] ECG ED PRELIMINARY 2021-06-05 00:31:28 Sivan Stewart [facility] INTERPRETATION ECG 12-LEAD 2021-06-05 00:19:17 Carlos Dhaliwal Ho marilyn [facility] POC GLUCOSE 2021-05-25 18:04:00 Awe, Marilu Arvin [facility] POC GLUCOSE 2021-05-25 14:00:00 Awe, Marilu Arvin [facility] CBC HEMOGRAM 2021-05-25 10:12:00 Awe, Marilu Arvin [facility] BASIC METABOLIC PANEL 2021-05-25 10:12:00 Awe, [facility] ESTIMATED GFR 2021-05-25 10:12:00 Awe, Marilu Arvin [facility] POC GLUCOSE 2021-05-25 02:49:00 Awe, Marilu Arvin [facility] POC GLUCOSE 2021-05-24 23:33:00 Awe, Marilu Arvin [facility] POC GLUCOSE 2021-05-24 17:56:00 Awe, Marilu Arvin [facility] POC GLUCOSE 2021-05-24 13:59:00 Awe, Marilu Arvin [facility] CBC HEMOGRAM 2021-05-24 10:12:00 Awe, Marilu Arvin [facility] BASIC METABOLIC PANEL 2021-05-24 10:12:00 [facility]24 10:12:00 Awe, Marilu Arvin [facility] POC GLUCOSE 2021-05-24 09:59:00 Awe, Marilu Arvin [facility] POC GLUCOSE 2021-05-24 02:26:00 Awe, [facility] 2021-05-24 00:03:00 Awe, [facility] TRANSFUSE RED BLOOD CELLS 2021-05-23 22:30:00 [facility] TRANSFUSE RED BLOOD CELLS 2021-05-23 21:30:00 [facility] POC GLUCOSE 2021-05-23 19:03:00 Awe, [facility] TYPE AND SCREEN 2021-05-23 14:38:00 [facility] HC COMPLETE BLD COUNT 2021-05-23 14:38:00 [facility] W/AUTO DIFF PREPARE RBC 2021-05-23 14:38:00 [facility]ital PREPARE PLATELET PHERESIS 2021-05-23 14:38:00 [facility] POC GLUCOSE 2021-05-23 14:35:00 Awe, [place] [facility] HEMODIALYSIS 2021-05-23 13:42:30 [facility] CBC HEMOGRAM 2021-05-23 12:31:00 Awe, [facility] BASIC METABOLIC PANEL 2021-05-23 12:31:00 Awe, [facility] ESTIMATED GFR 2021-05-23 12:31:00 Awe, [facility] POC GLUCOSE 2021-05-23 11:22:00 Awe, [facility] POC GLUCOSE 2021-05-23 03:30:00 [facility] 2021-05-22 23:20:00 Awe, [facility] POC GLUCOSE 2021-05-22 17:20:00 Awe, [facility] POC GLUCOSE 2021-05-22 13:27:00 Awe, [facility] BASIC METABOLIC PANEL 2021-05-22 12:31:00 Nikki Haynes [facility] Rahel MAGNESIUM LEVEL 2021-05-22 12:31:00 Nikki Haynes osgio Mcginnis CBC HEMOGRAM 2021-05-22 12:31:00 Nikki Haynes ospital Rahel ESTIMATED GFR 2021-05-22 12:31:00 Nikki Haynes ospital Rahel POC GLUCOSE 2021-05-22 10:54:00 Awe, [facility] POC GLUCOSE 2021-05-22 07:28:00 Awe, [facility] POC GLUCOSE 2021-05-22 01:11:00 Awe, [facility] HEPATITIS B SURFACE 2021-05-21 21:08:00 [facility] ANTIBODY HEMODIALYSIS 2021-05-21 20:57:40 [facility] POC GLUCOSE 2021-05-21 17:57:00 Awe, [facility] POC GLUCOSE 2021-05-21 13:55:00 Awe, [facility] POC GLUCOSE 2021-05-21 10:41:00 Kye Barber COVID-19 ANTI-SPIKE IGG 2021-05-21 07:43:00 Ishan [facility] ANTIBODY TITER Esa BASIC METABOLIC PANEL 2021-05-21 07:43:00 [facility] Rahel MAGNESIUM LEVEL 2021-05-21 07:43:00 Nikki Haynes ospigabe Mcginnis CBC HEMOGRAM 2021-05-21 07:43:00 Nikki Haynes ospigabe Mcginnis COVID-19 SEROLOGY PATIENT 2021-05-21 07:43:00 Clyde Olmstead [facility] SURVEILLANCE Esa ESTIMATED GFR 2021-05-21 07:43:00 Andre Sofia [place] LACTIC ACID LEVEL 2021-05-21 07:43:00 Leodan Stevenson [facility] POC GLUCOSE 2021-05-21 06:35:00 Kye Barber HC COMPLETE BLD COUNT 2021-05-21 02:49:00 [facility] W/AUTO DIFF BASIC METABOLIC PANEL 2021-05-21 02:49:00 [facility] LACTIC ACID LEVEL 2021-05-21 02:49:00 [facility] OSMOLALITY, SERUM 2021-05-21 02:49:00 [facility] BETA HYDROXYBUTYRATE 2021-05-21 02:49:00 [facility] PROCALCITONIN 2021-05-21 02:49:00 [facility] ESTIMATED GFR 2021-05-21 02:49:00 [facility] POC GLUCOSE 2021-05-21 02:34:00 Kye Barber spital HC COMPLETE BLD COUNT 2021-05-21 00:28:00 Char Viramontes [facility] W/AUTO DIFF POC GLUCOSE 2021-05-20 23:57:00 Kye Barber spital BASIC METABOLIC PANEL 2021-05-20 23:20:00 Andre Sofia [facility] [place] LACTIC ACID LEVEL 2021-05-20 23:20:00 Kimberlyn [facility] [place] ESTIMATED GFR 2021-05-20 23:20:00 Andre Sofia spital [place] VENOUS BLOOD GAS 2021-05-20 23:19:00 Andre Sofia ospital [place] POC GLUCOSE 2021-05-20 23:16:00 Kye Barber Ho spital POC GLUCOSE 2021-05-20 22:16:00 Kye Barber Ho spital POC GLUCOSE 2021-05-20 21:37:00 Kye Barbre Ho spital POC GLUCOSE 2021-05-20 20:29:00 Kye Barber Ho spital POC GLUCOSE 2021-05-20 20:26:00 Kye Barber spital POC GLUCOSE 2021-05-20 17:49:00 Kye Barber Ho spital POC GLUCOSE 2021-05-20 17:46:00 Kye Barber spital TRANSFUSE RED BLOOD CELLS 2021-05-20 17:21:00 [facility] [place] TRANSFUSE PLATELET 2021-05-20 15:52:00 Wander [facility] PHERESIS BASIC METABOLIC PANEL 2021-05-20 15:25:00 [facility] [place] ESTIMATED GFR 2021-05-20 15:25:00 Andre Sofia spital [place] POC GLUCOSE 2021-05-20 14:48:00 Kye Barber spital HEMODIALYSIS 2021-05-20 11:31:20 [facility] POC GLUCOSE 2021-05-20 10:44:00 Kye Barber spital HEPATITIS B SURFACE 2021-05-20 08:49:00 [facility] ANTIGEN HEPATITIS B SURFACE AB, 2021-05-20 08:49:00 [facility] QUANTITATIVE HC COMPLETE BLD COUNT 2021-05-20 08:25:00 [facility] W/AUTO DIFF BASIC METABOLIC PANEL 2021-05-20 08:25:00 [facility] MAGNESIUM LEVEL 2021-05-20 08:25:00 [facility] ospital PHOSPHORUS LEVEL 2021-05-20 08:25:00 [facility] PROTHROMBIN TIME WITH INR 2021-05-20 08:25:00 Leodan Stevenson [facility] ESTIMATED GFR 2021-05-20 08:25:00 Juwan Krueger spital HEMOGLOBIN A1C 2021-05-20 08:25:00 Nikki Haynes H ospital Rahel POC GLUCOSE 2021-05-20 06:34:00 Kye Barber spital ARTERIAL BLOOD GAS 2021-05-20 04:36:00 [facility] 12-LEAD 2021-05-20 03:42:28 Graham [facility] spital PROTHROMBIN TIME WITH INR 2021-05-20 02:54:00 [facility] HC COMPLETE BLD COUNT 2021-05-20 02:54:00 [facility] DIFF BASIC METABOLIC PANEL 2021-05-20 02:54:00 [facility] LACTIC ACID LEVEL 2021-05-20 02:54:[address] [facility] VENOUS BLOOD GAS 2021-05-20 02:54:00 Graham [facility] Claudia ospital ESTIMATED GFR 2021-05-20 02:54:00 Graham [facility] Ho spital POC GLUCOSE 2021-05-20 02:54:00 Kye Barber spital XR CHEST 1 VW PORTABLE 2021-05-20 02:51:13 [facility] [place] [facility] 1 HOUR 2021-05-20 01:30:15 Juwan Krugeer spital TRANSFUSE RED BLOOD CELLS 2021-05-20 00:59:00 Juwan Krueger [facility] CT AN ELECTIVE 2021-05-20 00:53:01 Sukhjinder Medina spital SUPRAGLOTTIC AIRWAY [place]all INCISION AND DRAINAGE, 2021-05-20 00:45:00 Juwan Krueger [facility] HEMATOMA HC COMPLETE BLD COUNT 2021-05-19 22:13:00 [facility] W/AUTO DIFF BASIC METABOLIC PANEL 2021-05-19 22:13:00 [facility] PROTHROMBIN TIME WITH INR 2021-05-19 22:13:00 [facility] PARTIAL THROMBOPLASTIN 2021-05-19 22:13:00 [facility] TIME (PTT) MAGNESIUM LEVEL 2021-05-19 22:13:00 [facility] ospital ESTIMATED GFR 2021-05-19 22:13:00 Juwan Krueger spital POC GLUCOSE 2021-05-19 22:00:00 Errol [facility] SURGICAL PATHOLOGY REQUEST 2021-05-19 21:47:00 Errol Luther [facility] POC GLUCOSE 2021-05-19 21:17:00 Juwan Krueger spital ACTIVATED CLOTTING TIME 2021-05-19 19:12:00 Kye Barber [facility] CT AN ELECTIVE 2021-05-19 18:11:04 Sukhjinder Medina spital SUPRAGLOTTIC AIRWAY [place] LOWER EXTREMITY 2021-05-19 17:59:00 Juwan Krueger spital ANGIOGRAM,POSSIBLE ANGIOPLASTY,POSSIBLE STENT XR CHEST 1 VW PORTABLE 2021-05-19 15:47:37 Juwan Krueger [facility] ESTIMATED GFR 2021-05-19 14:34:00 Juwan Krueger spital POC PANEL 2021-05-19 14:34:00 Juwan Krueger spital TYPE AND SCREEN 2021-05-19 14:05:00 Isabell Dickerson marilyn Romero PREPARE RBC 2021-05-19 14:05:00 [facility] PREPARE FRESH FROZEN 2021-05-19 14:05:00 [facility] PLASMA PREPARE PLATELET PHERESIS 2021-05-19 14:05:00 Char Viramontes [facility] BASIC METABOLIC PANEL 2021-05-19 14:00:00 [facility] Romero PROTHROMBIN TIME WITH INR 2021-05-19 14:00:00 Jayla [facility] Larry Romero HC COMPLETE BLD COUNT 2021-05-19 14:00:00 [facility] W/AUTO DIFF Larry Romero ABO AND RH CONFIRMATION 2021-05-19 14:00:00 Pati [facility] ESTIMATED GFR 2021-05-19 14:00:00 Isabell Dickerson COVID-19 QUALITATIVE 2021-05-19 12:40:00 Juwan [facility] RT-PCR MEDICAL RELEASE/CLEARANCE 2021-05-13 06:01:00 Doctor Unassigned, [facility] FORMS [facility] US DUPLEX ARTERIAL LOWER 2021-05-12 15:21:31 Juwan Krueger [facility] EXTREMITY BILATERAL Emergency department visit 2013-04-15 05:00:00 [facility] for the evaluation and management of a patient, which requires these 3 kamara components within the constraints imposed by the urgency of the patient's clinical condition and/or mental status: A comprehensive history; A comprehensi Injection or Infusion of 2013-04-15 05:00:00 Mem [facility] [place] Other Therapeutic or Prophylactic Substance Intravenous infusion, 2013-04-15 05:00:00 Memori al Vin hydration; each additional hour (List separately in addition to code for primary procedure) Therapeutic, prophylactic, 2013-04-15 05:00:00 [facility] or diagnostic injection (specify substance or drug); each additional sequential intravenous push of a new substance/drug (List separately in addition to code for primary procedure) Therapeutic, prophylactic, 2013-04-15 05:00:00 [facility] or diagnostic injection (specify substance or drug); intravenous push, single or initial substance/drug [facility] E[facility] (esophagogastroduodenoscop y) gastric outlet reduction section Shahid Joseph n Tubal ligation [facility] 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 Plan of Care Planned Activity Planned Date Details Comments Source Future Scheduled 2021-07-22 COVID-19 VACCINE [facility] Test 13:11:04 (1) [code = COVID-19 VACCINE (1)] Future Scheduled 2021-07-22 [facility] Test 13:11:04 screening (procedure) [code = 936936061] Future Scheduled 2021-07-22 [facility] for [facility] Test 13:11:04 malignant neoplasm of cervix (procedure) [code = 110259043] Future Scheduled 2021-07-22 [facility] 13:11:04 [code = INFLUENZA VACCINE] Encounters Start End Encounter Admission Attending Care Care Encounter Source Date/Time Date/Time Type Type Clinicians Facility Department ID 2021-07-22 Outpatient nullFlavo [facility] [id number] Memoria 00:10:30 r Medical 05 l [facility] 2021-07-22 Preadmit nullFlavo [id number] Memoria 00:10:30 r [facility] 68 l [place] 2021-07-22 Outpatient nullFlavo [facility] [id number] Memoria 00:10:30 r Medical 06 l [facility] 2021-07-08 2021-07-08 Office Ann, 1.2.840.1 [id number] Methodi 12:54:05 14:25:36 Visit Bessie 26996.1.[address] [place] 3.430.2.7 Hosp jo-ann .3.719775 l .8 2021-07-08 2021-07-08 Telephone Anthony, 1.2.840.1 [id number] Methodi 00:00:00 00:00:[address] 3.430.2.7 Hospit a .3.559991 l .8 2021-07-08 2021-07-08 Travel 1.2.840.1 1.2.898.666 7078 [id number] Methodi 00:00:00 00:00:[address] 3.430.2.7 0.2.7.3.698 Ho spita .3.731213 084.8 l .8 2021-07-03 2021-07-03 Telephone Seth, 1.2.840.1 [id number] [id number] Methodi 00:00:00 00:00:[address] [place] 3.430.2.7 Hosp jo-ann .3.658239 l .8 2021-06-24 2021-06-24 Outpatient Deshazo_T DMG [facility] [address] -2021 Devoted 05:31:00 05:31:00 0104 Medica l Group 2021-06-23 2021-06-23 Telephone Anthony, 1.2.840.1 [id number] [id number] Methodi 00:00:00 00:00:[address] 3.430.2.7 Hospit a .3.843203 l .8 2021-06-04 2021-06-18 [facility] Sivan Stewart 1.2.840.1 [id number] Methodi 18:20:00 18:13:00 Encounter Carlos Dhaliwal 36330.1.[address] [place], Holden Ortizra 3.430.2.7 Hospita Shanda Mckenzie .3.468276 l Aurelio Schumacher .8 2021-06-16 2021-06-16 Anesthesia Yousif, 1.2.840.1 [id number] Methodi 23:59:59 23:59:59 Event Alesia Coelho 15152.1.[address] 3.430.2.7 Hospit a .3.437639 l .8 2021-06-16 2021-06-16 Surgery Diaz, 1.2.840.1 [id number] Methodi 13:30:00 17:45:[address] [facility] 3.430.2.7 Hosp jo-ann .3.458746 l .8 2021-06-16 2021-06-16 Anesthesia Jose Carlos, 1.2.840.1 [id number] Methodi 15:19:00 17:19:00 Event Sethlachelleayo 73475.1.1 309 s t V. 3.430.2.7 Hospit a .3.303755 l .8 2021-06-10 2021-06-10 Surgery Juwan Krueger 1.2.840.1 [id number] [id number] Methodi 08:00:00 10:30:[address] 3.430.2.7 Hospit a .3.331192 l .8 2021-06-10 2021-06-10 Anesthesia Doc, 1.2.840.1 [id number] [id number] Methodi 08:26:00 09:40:00 Event Sofi 37975.1.[address] Marquita 3.430.2.7 Hosp jo-ann .3.837687 l .8 2021-06-09 2021-06-09 Prep for Robert, 1.2.840.1 [id number] Methodi 00:00:00 00:00:00 Surgery Gayle 58073.1.[address] 3.430.2.7 Hospit a .3.629294 l .8 2021-06-09 2021-06-09 Prep for Robert, 1.2.840.1 [id number] Methodi 00:00:00 00:00:00 Surgery Gyale 26386.1.[address] 3.430.2.7 Hospit a .3.767173 l .8 2021-06-05 2021-06-05 Anesthesia Frankie Chowdhury 1.2.840.1 [id number] Methodi 10:16:00 11:41:00 Event Chandler Silverman 91159.1.[address] 3.430.2.7 Hospit a .3.579792 l .8 2021-06-05 2021-06-05 Surgery Juwan Krueger 1.2.840.1 [id number] Methodi 09:30:00 11:05:[address] 3.430.2.7 Hospit a .3.629111 l .8 2021-06-03 2021-06-03 Prep for Anthony, 1.2.840.1 [id number] Methodi 00:00:00 00:00:00 Surgery Forrest 65618.1.[address] 3.430.2.7 Hospit a .3.095851 l .8 2021-06-03 2021-06-03 Telephone Adelita, 1.2.840.1 [id number] Methodi 00:00:00 00:00:00 Crysandria 50509.1.1 218 s t 3.430.2.7 Hospit a .3.810801 l .8 2021-05-28 2021-05-28 Outpatient Adams_R DM DMG [id number] 021 Dev[facility] 05:00:00 05:00:00 1208 Medica l Group 2021-05-27 2021-05-27 Patient Tam, 1.2.840.1 [id number] Methodi 00:00:00 00:00:00 Outreach Maria M 86310.1.[address] 3.430.2.7 Hospit a .3.242760 l .8 2021-05-27 2021-05-27 Travel 1.2.840.1 1.2.919.773 1283 [id number] Methodi 00:00:00 00:00:[address] 3.430.2.7 0.2.7.3.698 Ho rajeshta .3.298867 084.8 l .8 2021-05-27 2021-05-27 Orders Ramana, 1.2.840.1 [id number] [id number] Methodi 00:00:00 00:00:00 Only Anila 46041.1.[address] 3.430.2.7 Hospit a .3.457033 l .8 2021-05-26 2021-05-26 Outpatient Adams_R DMG DMG [id number] 021 Devoted 03:30:00 03:30:00 1206 Medica l Group 2021-05-26 2021-05-26 Telephone Anthony, 1.2.840.1 [id number] [id number] Methodi 00:00:00 00:00:[address] 3.430.2.7 Hospit a .3.588326 l .8 2021-05-19 2021-05-25 [facility]Juwan 1.2.840.1 [id number] 2099 [id number] Methodi 06:00:00 15:59:00 Encounter Kye Barber 73751.1.[address] August Marilu Arvin 3.430.2.7 Hospita .3.715009 l .8 2021-05-21 2021-05-21 Outpatient DMG DMG [id number] 021 Devoted 03:30:00 03:30:00 1201 Medica l Group 2021-05-19 2021-05-19 Anesthesia Adam, 1.2.840.1 [id number] Methodi 18:45:00 20:31:00 Event Sukhjinder 66101.1.[address] [place] 3.430.2.7 Hospit a .3.577862 l .8 2021-05-19 2021-05-19 Surgery Juwan Krueger 1.2.840.1 [id number] Methodi 18:50:00 19:55:[address] 3.430.2.7 Hospit a .3.246377 l .8 2021-05-19 2021-05-19 Anesthesia Sukhjinder Medina 1.2.840.1 [id number] Methodi 12:00:00 15:14:00 Event Hanane Ledezma 61703.1.[address] 3.430.2.7 Hospit a .3.157079 l .8 2021-05-19 2021-05-19 Surgery Juwan Krueger 1.2.840.1 [id number] Methodi 12:05:00 14:45:[address] 3.430.2.7 Hospit a .3.946466 l .8 2021-05-19 2021-05-19 Travel 1.2.840.1 1.2.367.420 5358 316640 Methodi 00:00:00 00:00:[address] 3.430.2.7 0.2.7.3.698 spita .3.046783 084.8 l .8 2021-05-14 2021-05-14 Telephone Suhahia, 1.2.840.1 [id number] Methodi 00:00:00 00:00:[address] 3.430.2.7 Hospit a .3.145940 l .8 2021-05-14 2021-05-14 Prep for Anthony, 1.2.840.1 [id number] Methodi 00:00:00 00:00:00 Surgery Forrest [address]178.1.[address] 3.430.2.7 Hospit a .3.214739 l .8 2021-05-13 2021-05-13 Orders Doctor JOANNA 1.2.840.114 [id number] Univers 00:00:00 00:00:00 Only Unassigned, MAGDALENO 350.1.13.10 ity of [place] [facility] 4.2.7.2.686 Baljinder as [phone] [address] 2021-05-12 2021-05-12 Office PatiJuwan 1.2.840.1 [id number] Methodi 09:02:46 09:32:[address] 3.430.2.7 Hospit a .3.410240 l .8 2021-05-12 2021-05-12 Telephone Anthony, 1.2.840.1 [id number] 2099 [id number] Methodi 00:00:00 00:00:[address] 3.430.2.7 Hospit a .3.367102 l .8 2021-05-12 2021-05-12 Travel 1.2.840.1 1.2.066.847 5739 007770 Methodi 00:00:00 00:00:[address] 3.430.2.7 0.2.7.3.698 spita .3.227303 084.8 l .8 2021-05-08 2021-05-08 Orders Anthony, 1.2.840.1 [id number] Methodi 00:00:00 00:00:00 Only Forrest 67966.1.[address] 3.430.2.7 Hospit a .3.980704 l .8 2021-05-08 2021-05-08 Telephone Ramana, 1.2.840.1 [id number] Methodi 00:00:00 00:00:[address] 3.430.2.7 Hospit a .3.062648 l .8 2021-05-05 2021-05-05 Office Juwan Krueger 1.2.840.1 [id number] Methodi 14:18:48 15:41:[address] 3.430.2.7 Hospit a .3.948221 l .8 2021-05-05 2021-05-05 Travel 1.2.840.1 1.2.824.080 6127 035659 Methodi 00:00:00 00:00:[address] 3.430.2.7 0.2.7.3.698 Ho spita .3.521553 084.8 l .8 2021-05-01 2021-05-01 Telephone Joe 1.2.840.1 [id number] 2099 [id number] Methodi 00:00:00 00:00:[address] [facility] 3.430.2.7 Hosp jo-ann .3.089750 l .8 2021-03-21 2021-03-21 Outpatient DMG DMG [id number] 021 [facility] 08:01:00 08:01:00 1001 Medica l Group 2021-01-21 2021-01-29 Inpatient [facility] 77105 [id number] [facility] 15:50:00 20:14:[address] 2021-01-21 2021-01-29 Inpatient U [facility] CAR 7512 [facility] 10:50:00 15:14:00 AKUA 2021-01-24 2021-01-24 Outpatient DMG DMG [id number] 021 [facility] 08:00:00 08:00:00 0806 Medica l Group 2021-01-03 2021-01-03 Office DOMINIQUE Diane 1.2.840.114 [id number] 07:44:43 09:30:54 Visit Alexandr HOLMANCarlos 350.1.13.58 MEDICAL 9.2.7.2.686 [facility] [phone] 1 2021-01-03 2021-01-03 Office DOMINIQUE Diane 1.2.840.114 [id number] [place] 07:44:43 09:30:54 Visit Alexandr ALTMAN 350.1.13.58 H [facility] 9.2.7.2.686 [facility] [id number] 1 2020-12-24 2020-12-25 Outpatient nullFlavo [facility] [id number] Memoria 15:32:00 04:59:00 r Disease 11 l [facility] 2020-12-24 2020-12-24 Outpatient PHILIPPE, [facility] 7511 [facility] 10:32:00 23:59:00 AMES 2020-10-27 2020-10-27 Letter Lamin, [facility] 1.2.840.114 [id number] 00:00:00 00:00:00 (Out) Oz Lehman 350.1.13.10 Mcdavid 4.2.7.2.686 Professio [phone] [facility] 059 [facility] 2020-10-24 2020-10-24 Orders Doctor JOANNA 1.2.840.114 [id number] 00:00:00 00:00:00 Only Unassigned, MAGDALENO 350.1.13.10 [place] [facility] 4.2.7.2.686 [id number] 2020-09-24 2020-09-24 [facility] 1.2.840.114 [id number] 00:00:00 00:00:00 Jose Luis Lehman 350.1.13.10 Mcdavid 4.2.7.2.686 Professio [phone] [facility] 220 [facility] 2020-09-09 2020-09-09 [facility] 1.2.840.114 [id number] 00:00:00 00:00:00 Outreach Earl PRIMARY 350.1.13.10 Manuel CARE 4.2.7.2.686 PAVILLION [id number] [id number] 2020-07-23 2020-07-23 Office Black [facility] 1.2.951.231 [id number] 13:31:20 14:37:36 Visit Deja PRIMARY 350.1.13.10 A CARE 4.2.7.2.686 PAVILLION [id number] [id number] 2020-06-27 2020-06-27 [facility] 1.2.840.114 [id number] Univers 10:05:43 11:00:00 Visit Sendil Mami LEHMAN 350.1.13.10 ity [facility] 4.2.7.2.686 Amisha CANNON [phone] Il dical [facility] 2020-06-27 2020-06-27 [facility] [id number] Univers 09:30:00 11:00:00 SENDIL ity of [facility] 2020-01-25 2020-01-31 Inpatient 1 ChivoJose husseinRei [facility] [id number] 21:31:00 18:15:00 Rei [facility] 2016-07-24 2016-07-30 [facility] [id number] Memoria 02:04:00 16:20:[address] 2016-06-10 2016-06-15 [facility] [id number] Memoria 16:02:00 18:23:00 r [place] 09 [facility] 2014-06-26 2014-06-26 EC [facility] [id number] Memoria 05:25:00 15:14:00 Emergency r [place] 08 [facility] 2013-04-14 2013-04-15 Emergency nullFlavo [id number] Memoria 21:04:00 01:45:00 r [facility] 07 [facility] 2012-03-14 2012-03-14 Emergency nullFlavo [id number] Memoria 16:32:00 22:39:00 r [facility] 04 [facility] 2011-11-28 2011-11-30 OU nullFlavo [facility] [id number] Memoria 12:16:00 20:40:00 r [facility] 03 [facility] 2011-09-18 2011-09-18 Emergency nullFlavo [facility] [id number] Memoria 08:23:00 13:34:00 r [facility] 02 [facility] 2011-09-01 2011-09-09 Inpatient nullFlavo [facility] [id number] Memoria 01:40:00 15:00:00 r Medical 01 [facility] 2011-08-19 2011-08-23 Inpatient nullFlavo [facility] [id number] Memoria 14:25:00 15:28:00 r Medical l [facility] Results Test Description Test Time Test Comments Results Result Comments Source AFB culture 2021-07-22 18:13:19 Test Item Value Reference Range Interpretation Comme nts AFB culture isolate No growth after 6 weeks of Specimen InformationSpecimen (test code = 543-9) incubation. Source: DrainageSpecimen Site: Thigh: infected wound right thigh [id number] 18:15:13 Test Item Value Reference Range Interpretation Comments Fungus culture No growth Specimen isolate (test after 4 weeks InformationSp ecimen code = 1441) of Source: TissueS pecimen incubation. [facility] [id number] 14:31:13 Test Item Value Reference Range Interpretation Comments Anaerobic No anaerobic Specimen culture isolate organisms InformationS pecimen (test code = isolated. Source: TissueS pecimen 552) [id number] 16:51:58 Test Item Value Reference Range Interpretation Comments Gram stain No WBC's or Specimen isolate (test organisms seen. Information Specimen code = 1469) Source: TissueS pecimen [facility] [id number] 16:51:58 Test Item Value Reference Range Interpretation Comments Aerobic culture No growth Specimen isolate (test after 3 days. InformationSp ecimen code = 498) Source: TissueS pecimen [facility] [id number] 16:51:58 Test Item Value Reference Range Interpretation Comments Fungus smear No fungi Specimen (test code = observed. InformationSpec imen Source: 1443) TissueSpecimen Site: [facility] [id number] 17:00:57 Test Item Value Reference Range Interpretation Comments POC glucose (test code 79 mg/dL 65-99 Opera tor Name: Eboni = [id number]) AmiDevice ID: [id number] [facility] , [id number] 20:46:00 Test Item Value Reference Range Interpretation Comments test urine, POC (test Negative code = 9481472) Internal QC (test code = 257) QC acceptable [facility] 12 [id number] 17:27:33 Test Item Value Reference Range Interpretation Comments Ventricular rate (test code = 253) Atrial rate (test code = 255) CT interval (test code = 266) QRSD interval (test code = 260) QT interval (test code = 264) QTC interval (test code = 265) P axis 1 (test code = 267) QRS axis 1 (test code = 268) T wave axis (test code = 270) EKG impression (test Normal sinus code = 273) rhythm-Normal ECG-In automated comparison with ECG of 04-JUN-2021 18:19,-No significant change was found- [facility] [id number] 11:06:00 Test Item Value Reference Range Interpretation Comments ABO grouping (test code = 883-9) B Rh type (test code = 54538-1) POS Antibody screen (gel) (test code = NEG 890-4) [facility] [id number] 20:18:46 Test Item Value Reference Range Interpretation Comments Tissue culture No growth Specimen isolate (test after 3 days. InformationSp ecimen code = 97395-3) Source: Tiss ueSpecimen Site: Thigh: in fected right thigh wou nd [facility]AF[facility] [id number] 20:24:42 Test Item Value Reference Range Interpretation Comments AFB stain No acid fast Specimen (test code = bacilli (AFB) InformationSpe cimen 676-7) seen. Source: Drainag eSpecimen Site: Thigh: in fected wound right th igh [facility] [id number] 09:49:57 Test Item Value Reference Range Interpretation Comments Urine culture No growth Specimen isolate (test after 24 InformationSpe cimen code = 12536-9) hours Source: Urin eSpecimen Site: Clean cat ch [facility]AB[facility] and Rh bamgbdnnuhni6653-72-99 12:52:00 Test Item Value Reference Range Interpretation Comments ABO grouping (test code = 883-9) B Rh type (test code = 46474-5) [facility] 1 [id number] 22:22:00 Test Item Value Reference Range Interpretation Comments Product name (test code Red Blood Cells -1, = 25) Leukored Unit number (test code = [id number]) Product code (test code Q9761S45 = 3092) Dispense status (test Transfused code = 24) Blood expiration date (test code = 302) Blood type code (test code = 308) Blood type (test code = B POSITIVE 1314) Compatibility (test code Compatible = 6400) [facility] [id number] 20:10:46 Test Item Value Reference Range Interpretation Comments Case number (test code = [id number]) Surgical pathology See link below for report (test code = PDF Lab Report 1535) Result status (test code This is Final Report = [id number]) for [id number] [facility] platelet pheresis, 1 Cvbrg6054-50-08 15:35:00 Test Item Value Reference Range Interpretation Comments Product name (test code Bogdan Fraire LR, Path = 25) Red cont3 Unit number (test code = [id number]) Product code (test code F8880Y30 = 3092) Dispense status (test Transfused code = 24) Blood expiration date (test code = 302) Blood type code (test code = 308) Blood type (test code = O POSITIVE 1314) Compatibility (test code Not required = 6400) [facility]Act[facility] clotting [id number] 12:13:24 Test Item Value Reference Range Interpretation Comments Activated clotting time See_Comment H Oper ator Name: (test code = 5298) Bryn Morales ID: [id number] [Automated mess age] The system [employer] generated this result transmitted ref erence range: 96 - 152 sec. The reference r leo was not used to interpret this result as normal/abnor mal. Lab Interpretation (test Abnormal code = 20724-2) [facility] nstqv0727-42-67 14:37:48 Test Item Value Reference Range Interpretation Comments POC sodium (test code = 138 mmol/L 569-112 6232-0) POC potassium (test 5.5 mmol/L 3.5-5.0 H code = 6298-4) POC glucose (test code 295 mg/dL 65-99 H = 2339-0) POC creatinine (test 5.3 mg/dl 0.5-0.9 H Operato r Name: Pat code = 23156-6) [place] ID: [id number] POC hemoglobin (test 18.4 g/dL 12.0-16.0 H code = 718-7) POC hematocrit (test 54 % 37-47 H code = 4544-3) Lab Interpretation Abnormal (test code = 61347-0) [place] 442361-08-11 08:17:00 Test Item Value Reference Range Interpretation Comments Glucose Lvl (test code = Glucose Lvl) 94 70-99 [place] 257[address]-08-11 08:17:00 Test Item Value Reference Range Interpretation Comments BUN (test code = BUN) 27 7-22 [place] [address]-08-11 08:17:00 Test Item Value Reference Range Interpretation Comments Creatinine Lvl (test code = Creatinine 4.95 0.50-1.40 Lvl) [place] 441021-08-11 08:17:00 Test Item Value Reference Range Interpretation Comments Sodium Lvl (test code = Sodium Lvl) 136 135-145 [place] 441021-08-11 08:17:00 Test Item Value Reference Range Interpretation Comments Potassium Lvl (test code = Potassium 3.9 3.5-5.1 Lvl) [place] 441021-08-11 08:17:00 Test Item Value Reference Range Interpretation Comments Chloride Lvl (test code = Chloride Lvl) 103 95-109 [place] 441021-08-11 08:17:00 Test Item Value Reference Range Interpretation Comments CO2 (test code = CO2) 30 24-32 [place] 441021-08-11 08:17:00 Test Item Value Reference Range Interpretation Comments AGAP (test code = AGAP) 6.9 10.0-20.0 [place] 441021-08-11 08:17:00 Test Item Value Reference Range Interpretation Comments Calcium Lvl (test code = Calcium Lvl) 8.5 8.5-10.5 [place] [address]-08-11 08:17:00 Test Item Value Reference Range Interpretation Comments eGFR (test code = eGFR) 10 [place] 441021-08-11 08:17:00 Test Item Value Reference Range Interpretation Comments Phosphorus (test code = Phosphorus) 3.0 2.5-4.5 [facility] [id number] 08:17:00 Test Item Value Reference Range Interpretation Comments Magnesium Lvl (test code = Magnesium 2.4 1.8-2.4 Lvl) [facility]woodCdhizkwLILFULNMTT7977-51-21 08:17:00 Test Item Value Reference Range Interpretation Comments WBC (test code = WBC) 2.3 3.7-10.4 [facility]woodSztoqphREHOOTATLP3329-79-49 08:17:00 Test Item Value Reference Range Interpretation Comments RBC (test code = RBC) 2.65 4.20-5.40 [facility]woodPgqtwaeYJIJZAIKHT6617-12-22 08:17:00 Test Item Value Reference Range Interpretation Comments Hgb (test code = Hgb) 7.9 12.0-16.0 [facility]woodEbjfqoiOTJOVVUDDU6065-20-86 08:17:00 Test Item Value Reference Range Interpretation Comments Hct (test code = Hct) 24.0 36.0-48.0 [facility]woodZpmyfsvQROHZXLWVA4468-36-11 08:17:00 Test Item Value Reference Range Interpretation Comments MCV (test code = MCV) 90.6 80.0-98.0 [facility]woodMelgpokBVIXOVWUPR5235-44-73 08:17:00 Test Item Value Reference Range Interpretation Comments MCH (test code = MCH) 29.7 pg 27.0-31.0 [facility]woodCjkjqfrYKVLKWJIFJ7222-15-27 08:17:00 Test Item Value Reference Range Interpretation Comments MCHC (test code = MCHC) 32.7 32.0-36.0 [facility]woodHddxexiOFJMKATBMX8226-34-84 08:17:00 Test Item Value Reference Range Interpretation Comments RDW (test code = RDW) 19.1 11.5-14.5 [facility]woodQmwqtstOECDPCZFDR7344-33-35 08:17:00 Test Item Value Reference Range Interpretation Comments Platelet (test code = Platelet) 71 133-450 [facility]woodNvgysvkXWUQXLMAWN6265-23-38 08:17:00 Test Item Value Reference Range Interpretation Comments MPV (test code = MPV) 9.9 7.4-10.4 [facility] KingwoodBwaaxcoYSYUQXSGNL1911-42-79 08:17:00 Test Item Value Reference Range Interpretation Comments Segs (test code = Segs) 56.1 45.0-75.0 [place] 834271-08-11 08:17:00 Test Item Value Reference Range Interpretation Comments Lymphocytes (test code = Lymphocytes) 28.9 20.0-40.0 [place] 834271-08-11 08:17:00 Test Item Value Reference Range Interpretation Comments Monocytes (test code = Monocytes) 8.1 2.0-12.0 [place] 834271-08-11 08:17:00 Test Item Value Reference Range Interpretation Comments Eosinophils (test code = 5.9 See_Comment [A utomated message] The Eosinophils) system which ge nerated this result tra nsmitted reference range : <=4.0. The reference r leo was not used to int erpret this result as normal/abnormal . [place] 834271-08-11 08:17:00 Test Item Value Reference Range Interpretation Comments Basophils (test code = 1.0 See_Comment [Aut omated message] The Basophils) system which ge nerated this result tra nsmitted reference range : <=1.0. The reference r leo was not used to int erpret this result as normal/abnormal . [facility]woodDivdsmeWDARRAFOGI5168-44-16 08:17:00 Test Item Value Reference Range Interpretation Comments Neutrophils # (test code = Neutrophils 1.3 1.5-8.1 #) [place] 834271-08-11 08:17:00 Test Item Value Reference Range Interpretation Comments Lymphocytes # (test code = Lymphocytes 0.7 1.0-5.5 #) [place] 834271-08-11 08:17:00 Test Item Value Reference Range Interpretation Comments Monocytes # (test code 0.2 See_Comment [Aut omated message] The = Monocytes #) system which generated this result tra nsmitted reference range : <=0.8. The reference r leo was not used to int erpret this result as normal/abnormal . [place] 834271-08-11 08:17:00 Test Item Value Reference Range Interpretation Comments Eosinophils # (test code 0.1 See_Comment [A utomated message] The = Eosinophils #) system ic h generated this result tra nsmitted reference range : <=0.5. The reference r leo was not used to int erpret this result as normal/abnormal . [facility]2021-08-10 09:30:00 Test Item Value Reference Range Interpretation Comments Glucose Lvl (test code = Glucose Lvl) 61 70-99 [place] 441021-08-10 09:30:00 Test Item Value Reference Range Interpretation Comments BUN (test code = BUN) 13 7-22 [place] 441021-08-10 09:30:00 Test Item Value Reference Range Interpretation Comments Creatinine Lvl (test code = Creatinine 3.71 0.50-1.40 Lvl) [place] 441021-08-10 09:30:00 Test Item Value Reference Range Interpretation Comments Sodium Lvl (test code = Sodium Lvl) 136 135-145 [place] 441021-08-10 09:30:00 Test Item Value Reference Range Interpretation Comments Potassium Lvl (test code = Potassium 4.3 3.5-5.1 Lvl) [place] 441021-08-10 09:30:00 Test Item Value Reference Range Interpretation Comments Chloride Lvl (test code = Chloride Lvl) 103 95-109 [place] 441021-08-10 09:30:00 Test Item Value Reference Range Interpretation Comments CO2 (test code = CO2) 27 24-32 [place] 441021-08-10 09:30:00 Test Item Value Reference Range Interpretation Comments Calcium Lvl (test code = Calcium Lvl) 7.9 8.5-10.5 [place] 441021-08-10 09:30:00 Test Item Value Reference Range Interpretation Comments AGAP (test code = AGAP) 10.3 10.0-20.0 [facility] VZMFJ7750-27-37 09:30:00 Test Item Value Reference Range Interpretation Comments eGFR (test code = eGFR) 15 [place] 441021-08-10 09:30:00 Test Item Value Reference Range Interpretation Comments Magnesium Lvl (test code = Magnesium 2.3 1.8-2.4 Lvl) [place] 441021-08-10 09:30:00 Test Item Value Reference Range Interpretation Comments Phosphorus (test code = Phosphorus) 3.1 2.5-4.5 [facility] CenterLmhmyifWJMBUAKASJ3262-28-47 09:30:00 Test Item Value Reference Range Interpretation Comments Segs (test code = Segs) 61.5 45.0-75.0 [place] 834271-08-10 09:30:00 Test Item Value Reference Range Interpretation Comments Lymphocytes (test code = Lymphocytes) 24.6 20.0-40.0 [place] 834271-08-10 09:30:00 Test Item Value Reference Range Interpretation Comments Monocytes (test code = Monocytes) 7.4 2.0-12.0 [place] 834271-08-10 09:30:00 Test Item Value Reference Range Interpretation Comments Eosinophils (test code = 5.5 See_Comment [A utomated message] The Eosinophils) system which ge nerated this result tra nsmitted reference range : <=4.0. The reference r leo was not used to int erpret this result as normal/abnormal . [place] 834271-08-10 09:30:00 Test Item Value Reference Range Interpretation Comments Basophils (test code = 1.0 See_Comment [Aut omated message] The Basophils) system which ge nerated this result tra nsmitted reference range : <=1.0. The reference r leo was not used to int erpret this result as normal/abnormal . [place] 834271-08-10 09:30:00 Test Item Value Reference Range Interpretation Comments Neutrophils # (test code = Neutrophils 1.6 1.5-8.1 #) [place] 834271-08-10 09:30:00 Test Item Value Reference Range Interpretation Comments Lymphocytes # (test code = Lymphocytes 0.6 1.0-5.5 #) [place] 834271-08-10 09:30:00 Test Item Value Reference Range Interpretation Comments Monocytes # (test code 0.2 See_Comment [Aut omated message] The = Monocytes #) system which generated this result tra nsmitted reference range : <=0.8. The reference r leo was not used to int erpret this result as normal/abnormal . [facility]woodMfouarnXUKLFGDDHM2557-75-66 09:30:00 Test Item Value Reference Range Interpretation Comments Eosinophils # (test code 0.1 See_Comment [A utomated message] The = Eosinophils #) system whic h generated this result tra nsmitted reference range : <=0.5. The reference r leo was not used to int erpret this result as normal/abnormal . [facility] KingwoodOvhojewUZBVGMRKWL9731-15-24 09:30:00 Test Item Value Reference Range Interpretation [...] studies, if clinically indicated, are recommended. CPT: 81056 [place] 834271-08-10 09:30:00 Test Item Value Reference Range Interpretation Comments WBC (test code = WBC) 2.5 3.7-10.4 [place] 834271-08-10 09:30:00 Test Item Value Reference Range Interpretation Comments RBC (test code = RBC) 2.68 4.20-5.40 [place] 834271-08-10 09:30:00 Test Item Value Reference Range Interpretation Comments Hgb (test code = Hgb) 8.2 12.0-16.0 [place] [address]-08-10 09:30:00 Test Item Value Reference Range Interpretation Comments Hct (test code = Hct) 24.3 36.0-48.0 [place] [address]-08-10 09:30:00 Test Item Value Reference Range Interpretation Comments MCV (test code = MCV) 90.9 80.0-98.0 [place] [address]-08-10 09:30:00 Test Item Value Reference Range Interpretation Comments MCH (test code = MCH) 30.5 pg 27.0-31.0 [place] [address]-08-10 09:30:00 Test Item Value Reference Range Interpretation Comments MCHC (test code = MCHC) 33.6 32.0-36.0 [place] [address]-08-10 09:30:00 Test Item Value Reference Range Interpretation Comments RDW (test code = RDW) 19.4 11.5-14.5 [place] [address]-08-10 09:30:00 Test Item Value Reference Range Interpretation Comments Platelet (test code = Platelet) 70 133-450 [facility] CenterAtvmjmpHBEDBMBKNI5153-00-53 09:30:00 Test Item Value Reference Range Interpretation Comments MPV (test code = MPV) 10.7 7.4-10.4 [place] 441021-08-09 05:10:00 Test Item Value Reference Range Interpretation Comments Glucose Lvl (test code = Glucose Lvl) 69 70-99 [facility]2021-08-09 05:10:00 Test Item Value Reference Range Interpretation Comments BUN (test code = BUN) 29 7-22 [facility]2021-08-09 05:10:00 Test Item Value Reference Range Interpretation Comments Creatinine Lvl (test code = Creatinine 5.14 0.50-1.40 Lvl) [facility]2021-08-09 05:10:00 Test Item Value Reference Range Interpretation Comments Sodium Lvl (test code = Sodium Lvl) 134 135-145 [facility]2021-08-09 05:10:00 Test Item Value Reference Range Interpretation Comments Potassium Lvl (test code = Potassium 5.1 3.5-5.1 Lvl) [facility]2021-08-09 05:10:00 Test Item Value Reference Range Interpretation Comments Chloride Lvl (test code = Chloride Lvl) 98 95-109 [facility]2021-08-09 05:10:00 Test Item Value Reference Range Interpretation Comments CO2 (test code = CO2) 29 24-32 [facility]2021-08-09 05:10:00 Test Item Value Reference Range Interpretation Comments Calcium Lvl (test code = Calcium Lvl) 7.6 8.5-10.5 [place] 441021-08-09 05:10:00 Test Item Value Reference Range Interpretation Comments AGAP (test code = AGAP) 12.1 10.0-20.0 [place] 441021-08-09 05:10:00 Test Item Value Reference Range Interpretation Comments eGFR (test code = eGFR) 10 [place] 441021-08-09 05:10:00 Test Item Value Reference Range Interpretation Comments Magnesium Lvl (test code = Magnesium 2.3 1.8-2.4 Lvl) [place] 441021-08-09 05:10:00 Test Item Value Reference Range Interpretation Comments Phosphorus (test code = Phosphorus) 5.0 2.5-4.5 [facility]woodNmmqwsqSZYDZQUJYA2280-10-15 05:10:00 Test Item Value Reference Range Interpretation Comments WBC (test code = WBC) 2.7 3.7-10.4 [facility]woodSytfewxDHAXIWDLUY1139-84-11 05:10:00 Test Item Value Reference Range Interpretation Comments RBC (test code = RBC) 2.80 4.20-5.40 [facility]woodUepkvhmQNRIWXCNEQ9214-65-14 05:10:00 Test Item Value Reference Range Interpretation Comments Hgb (test code = Hgb) 8.5 12.0-16.0 [facility] KingwoodAlztajqVJXKWSZHKX5335-55-48 05:10:00 Test Item Value Reference Range Interpretation Comments Hct (test code = Hct) 25.7 36.0-48.0 [facility]woodMtsjgadWKCJHBJKPS3748-27-21 05:10:00 Test Item Value Reference Range Interpretation Comments MCV (test code = MCV) 91.7 80.0-98.0 [facility]woodTywiuirSJKDSUSGOD2291-79-65 05:10:00 Test Item Value Reference Range Interpretation Comments MCH (test code = MCH) 30.4 pg 27.0-31.0 [facility] KingwoodMemnaqcVQJUWAQLJN8905-13-84 05:10:00 Test Item Value Reference Range Interpretation Comments MCHC (test code = MCHC) 33.1 32.0-36.0 [facility]woodOqbcoycIHLZGYCXQD0215-27-72 05:10:00 Test Item Value Reference Range Interpretation Comments RDW (test code = RDW) 19.2 11.5-14.5 [facility] KingwoodYjaphiuAKYDDZEMBR6894-72-06 05:10:00 Test Item Value Reference Range Interpretation Comments Platelet (test code = Platelet) 72 133-450 [facility] KingwoodQxrynwmPULGPSRMGZ4939-94-97 05:10:00 Test Item Value Reference Range Interpretation Comments MPV (test code = MPV) 9.9 7.4-10.4 [facility]woodOahrwjkXELWEFDBRK0717-02-13 05:10:00 Test Item Value Reference Range Interpretation Comments Segs (test code = Segs) 72.6 45.0-75.0 [facility]woodUqxwbhnFQNDNMMOOM7839-30-18 05:10:00 Test Item Value Reference Range Interpretation Comments Lymphocytes (test code = Lymphocytes) 15.9 20.0-40.0 [facility] KingwoodNbyplaxKLLZSFSRCO6181-23-45 05:10:00 Test Item Value Reference Range Interpretation Comments Monocytes (test code = Monocytes) 7.3 2.0-12.0 [facility] KingwoodIatubhcEEIGDPBCKW5617-25-34 05:10:00 Test Item Value Reference Range Interpretation Comments Eosinophils (test code = 3.4 See_Comment [A utomated message] The Eosinophils) system which ge nerated this result tra nsmitted reference range : <=4.0. The reference r leo was not used to int erpret this result as normal/abnormal . [facility]woodNmuxyuxNACLZCKVGI3199-06-91 05:10:00 Test Item Value Reference Range Interpretation Comments Basophils (test code = 0.8 See_Comment [Aut omated message] The Basophils) system which ge nerated this result tra nsmitted reference range : <=1.0. The reference r leo was not used to int erpret this result as normal/abnormal . [facility]woodJhklquyQQZTQGNJDY5459-50-05 05:10:00 Test Item Value Reference Range Interpretation Comments Neutrophils # (test code = Neutrophils 1.9 1.5-8.1 #) [facility] KingwoodHoaxpwcLOZQRXCELN5958-64-33 05:10:00 Test Item Value Reference Range Interpretation Comments Lymphocytes # (test code = Lymphocytes 0.4 1.0-5.5 #) [facility] KingwoodVymzfdxMSIFEKIPIB3332-10-09 05:10:00 Test Item Value Reference Range Interpretation Comments Monocytes # (test code 0.2 See_Comment [Aut omated message] The = Monocytes #) system which generated this result tra nsmitted reference range : <=0.8. The reference r leo was not used to int erpret this result as normal/abnormal . [facility] KingwoodRrjzafhNGXFLSGJHX4118-35-99 05:10:00 Test Item Value Reference Range Interpretation Comments Eosinophils # (test code 0.1 See_Comment [A utomated message] The = Eosinophils #) system whic h generated this result tra nsmitted reference range : <=0.5. The reference r leo was not used to int erpret this result as normal/abnormal . [facility]HYQ[facility]91[facility]13-82 05:10:00 Test Item Value Reference Range Interpretation Comments Ca Ion WB (test code = Ca Ion WB) 1.10 1.05-1.25 [place] 670231-08-09 05:10:00 Test Item Value Reference Range Interpretation Comments Ca Norm WB (test code = Ca Norm WB) 1.06 1.05-1.25 [facility]2021-08-08 18:36:00 Test Item Value Reference Range Interpretation Comments C difficile DNA (test Negative (01/26/21 1:36 code = C difficile DNA) PM) [facility]2021-08-08 07:33:00 Test Item Value Reference Range Interpretation Comments Ca Ion WB (test code = Ca Ion WB) 1.12 1.05-1.25 [facility]2021-08-08 07:33:00 Test Item Value Reference Range Interpretation Comments Ca Norm WB (test code = Ca Norm WB) 1.07 1.05-1.25 [facility]2021-08-08 07:30:00 Test Item Value Reference Range Interpretation Comments Glucose Lvl (test code = Glucose Lvl) 65 70-99 [facility]2021-08-08 07:30:00 Test Item Value Reference Range Interpretation Comments BUN (test code = BUN) 21 7-22 [facility]2021-08-08 07:30:00 Test Item Value Reference Range Interpretation Comments Creatinine Lvl (test code = Creatinine 4.18 0.50-1.40 Lvl) [facility]2021-08-08 07:30:00 Test Item Value Reference Range Interpretation Comments Sodium Lvl (test code = Sodium Lvl) 136 135-145 [facility]2021-08-08 07:30:00 Test Item Value Reference Range Interpretation Comments Potassium Lvl (test code = Potassium 4.5 3.5-5.1 Lvl) [facility]2021-08-08 07:30:00 Test Item Value Reference Range Interpretation Comments Chloride Lvl (test code = Chloride Lvl) 99 95-109 [place] 441021-08-08 07:30:00 Test Item Value Reference Range Interpretation Comments CO2 (test code = CO2) 31 24-32 [place] 441021-08-08 07:30:00 Test Item Value Reference Range Interpretation Comments AGAP (test code = AGAP) 10.5 10.0-20.0 [place] 441021-08-08 07:30:00 Test Item Value Reference Range Interpretation Comments Calcium Lvl (test code = Calcium Lvl) 7.9 8.5-10.5 [place] 441021-08-08 07:30:00 Test Item Value Reference Range Interpretation Comments eGFR (test code = eGFR) 13 [place] 441021-08-08 07:30:00 Test Item Value Reference Range Interpretation Comments Magnesium Lvl (test code = Magnesium 2.2 1.8-2.4 Lvl) [place] 441021-08-08 07:30:00 Test Item Value Reference Range Interpretation Comments Phosphorus (test code = Phosphorus) 4.4 2.5-4.5 [place] 834271-08-08 07:30:00 Test Item Value Reference Range Interpretation Comments WBC (test code = WBC) 2.3 3.7-10.4 [place] 834271-08-08 07:30:00 Test Item Value Reference Range Interpretation Comments RBC (test code = RBC) 2.88 4.20-5.40 [place] 834271-08-08 07:30:00 Test Item Value Reference Range Interpretation Comments Hgb (test code = Hgb) 8.6 12.0-16.0 [place] 834271-08-08 07:30:00 Test Item Value Reference Range Interpretation Comments Hct (test code = Hct) 26.6 36.0-48.0 [place] 834271-08-08 07:30:00 Test Item Value Reference Range Interpretation Comments MCV (test code = MCV) 92.2 80.0-98.0 [place] 0[address]-08-08 07:30:00 Test Item Value Reference Range Interpretation Comments MCH (test code = MCH) 29.8 pg 27.0-31.0 [place] 834271-08-08 07:30:00 Test Item Value Reference Range Interpretation Comments MCHC (test code = MCHC) 32.4 32.0-36.0 [place] 834271-08-08 07:30:00 Test Item Value Reference Range Interpretation Comments RDW (test code = RDW) 19.7 11.5-14.5 [place] 834271-08-08 07:30:00 Test Item Value Reference Range Interpretation Comments Platelet (test code = Platelet) 83 133-450 [place] 834271-08-08 07:30:00 Test Item Value Reference Range Interpretation Comments MPV (test code = MPV) 10.2 7.4-10.4 [place] 834271-08-08 07:30:00 Test Item Value Reference Range Interpretation Comments Segs (test code = Segs) 64.0 45.0-75.0 [place] 834271-08-08 07:30:00 Test Item Value Reference Range Interpretation Comments Lymphocytes (test code = Lymphocytes) 24.1 20.0-40.0 [place] 834271-08-08 07:30:00 Test Item Value Reference Range Interpretation Comments Monocytes (test code = Monocytes) 7.0 2.0-12.0 [place] 834271-08-08 07:30:00 Test Item Value Reference Range Interpretation Comments Eosinophils (test code = 3.7 See_Comment [A utomated message] The Eosinophils) system which ge nerated this result tra nsmitted reference range : <=4.0. The reference r leo was not used to int erpret this result as normal/abnormal . [facility]HbueuqtSPNWVDBKIN0549-04-61 07:30:00 Test Item Value Reference Range Interpretation Comments Basophils (test code = 1.2 See_Comment [Aut omated message] The Basophils) system which ge nerated this result tra nsmitted reference range : <=1.0. The reference r leo was not used to int erpret this result as normal/abnormal . [facility]woodQxvxdecFEGFRZQHEK9536-47-10 07:30:00 Test Item Value Reference Range Interpretation Comments Neutrophils # (test code = Neutrophils 1.5 1.5-8.1 #) [place] 834271-08-08 07:30:00 Test Item Value Reference Range Interpretation Comments Lymphocytes # (test code = Lymphocytes 0.6 1.0-5.5 #) [place] 834271-08-08 07:30:00 Test Item Value Reference Range Interpretation Comments Monocytes # (test code 0.2 See_Comment [Aut omated message] The = Monocytes #) system which generated this result tra nsmitted reference range : <=0.8. The reference r leo was not used to int erpret this result as normal/abnormal . [facility]woodSthqbmnDRTYBJYVBO5544-30-07 07:30:00 Test Item Value Reference Range Interpretation Comments Eosinophils # (test code 0.1 See_Comment [A utomated message] The = Eosinophils #) system [employer] h generated this result tra nsmitted reference range : <=0.5. The reference r leo was not used to int erpret this result as normal/abnormal . [place] 441021-08-07 09:32:00 Test Item Value Reference Range Interpretation Comments Glucose Lvl (test code = Glucose Lvl) 59 70-99 [place] 441021-08-07 09:32:00 Test Item Value Reference Range Interpretation Comments BUN (test code = BUN) 11 7-22 [place] 25724-08-07 09:32:00 Test Item Value Reference Range Interpretation Comments Creatinine Lvl (test code = Creatinine 2.75 0.50-1.40 Lvl) [place] 441021-08-07 09:32:00 Test Item Value Reference Range Interpretation Comments Sodium Lvl (test code = Sodium Lvl) 138 135-145 [place] 441021-08-07 09:32:00 Test Item Value Reference Range Interpretation Comments Potassium Lvl (test code = Potassium 4.1 3.5-5.1 Lvl) [place] 441021-08-07 09:32:00 Test Item Value Reference Range Interpretation Comments Chloride Lvl (test code = Chloride Lvl) 104 95-109 [place] 441021-08-07 09:32:00 Test Item Value Reference Range Interpretation Comments CO2 (test code = CO2) 29 24-32 [place] 441021-08-07 09:32:00 Test Item Value Reference Range Interpretation Comments Calcium Lvl (test code = Calcium Lvl) 8.3 8.5-10.5 [place] 441021-08-07 09:32:00 Test Item Value Reference Range Interpretation Comments AGAP (test code = AGAP) 9.1 10.0-20.0 [place] 441021-08-07 09:32:00 Test Item Value Reference Range Interpretation Comments eGFR (test code = eGFR) 21 [place] 441021-08-07 09:32:00 Test Item Value Reference Range Interpretation Comments Magnesium Lvl (test code = Magnesium 2.2 1.8-2.4 Lvl) [facility]2021-08-07 09:32:00 Test Item Value Reference Range Interpretation Comments Phosphorus (test code = Phosphorus) 3.9 2.5-4.5 [place] 834271-08-07 09:32:00 Test Item Value Reference Range Interpretation Comments WBC (test code = WBC) 2.3 3.7-10.4 [place] 834271-08-07 09:32:00 Test Item Value Reference Range Interpretation Comments RBC (test code = RBC) 2.78 4.20-5.40 [place] 834271-08-07 09:32:00 Test Item Value Reference Range Interpretation Comments Hgb (test code = Hgb) 8.4 12.0-16.0 [facility]woodDstatxzLZHGVZCMAD7977-70-43 09:32:00 Test Item Value Reference Range Interpretation Comments Hct (test code = Hct) 25.2 36.0-48.0 [facility]woodRpmgzmrFAPDUYSQQO5424-19-81 09:32:00 Test Item Value Reference Range Interpretation Comments MCV (test code = MCV) 90.5 80.0-98.0 [facility]woodVksskjtLNZRRXTEZP6028-83-43 09:32:00 Test Item Value Reference Range Interpretation Comments MCH (test code = MCH) 30.4 pg 27.0-31.0 [facility]woodRruudkiCSTBPGRBHY8372-92-66 09:32:00 Test Item Value Reference Range Interpretation Comments MCHC (test code = MCHC) 33.5 32.0-36.0 [facility]woodCapieycBSMVQBUYGG2451-46-74 09:32:00 Test Item Value Reference Range Interpretation Comments RDW (test code = RDW) 19.0 11.5-14.5 [facility]woodLwcjgtdGZLHECIGUJ8604-19-80 09:32:00 Test Item Value Reference Range Interpretation Comments Platelet (test code = Platelet) 87 133-450 [facility]woodXoscjwqRYDQXSYGLL0348-31-74 09:32:00 Test Item Value Reference Range Interpretation Comments MPV (test code = MPV) 10.0 7.4-10.4 [facility] BANK USEJGFM7491-44-92 05:33:00 Test Item Value Reference Range Interpretation Comments ABO/Rh (test code = ABO/Rh) [facility] [id number] 05:33:00 Test Item Value Reference Range Interpretation Comments Antibody Scrn (test Negative (01/24/21 12:33 code = Antibody Scrn) AM) [facility]woodOwktiioZDYAIASJZG6233-93-24 05:33:00 Test Item Value Reference Range Interpretation Comments Segs (test code = Segs) 60.2 45.0-75.0 [facility]woodOobfsbuUIOPNNRDHQ1166-23-77 05:33:00 Test Item Value Reference Range Interpretation Comments Lymphocytes (test code = Lymphocytes) 28.6 20.0-40.0 [facility]woodEzvjfipIGSULENJOH9717-94-92 05:33:00 Test Item Value Reference Range Interpretation Comments Monocytes (test code = Monocytes) 5.8 2.0-12.0 [facility]woodUnnetcuXGRZZBTDSD9755-64-17 05:33:00 Test Item Value Reference Range Interpretation Comments Eosinophils (test code = 4.2 See_Comment [A utomated message] The Eosinophils) system which ge nerated this result tra nsmitted reference range : <=4.0. The reference r leo was not used to int erpret this result as normal/abnormal . [facility]woodWuuubxoLJNLYUWPRV0574-08-41 05:33:00 Test Item Value Reference Range Interpretation Comments Basophils (test code = 1.2 See_Comment [Aut omated message] The Basophils) system which ge nerated this result tra nsmitted reference range : <=1.0. The reference r leo was not used to int erpret this result as normal/abnormal . [facility]woodRzixxynLXLMCSAXXM9103-33-16 05:33:00 Test Item Value Reference Range Interpretation Comments Neutrophils # (test code = Neutrophils 2.2 1.5-8.1 #) [facility]woodZeaolljVENECWMHAN7011-93-02 05:33:00 Test Item Value Reference Range Interpretation Comments Lymphocytes # (test code = Lymphocytes 1.1 1.0-5.5 #) [facility]woodXsottggZSXCNUFWIB8671-51-04 05:33:00 Test Item Value Reference Range Interpretation Comments Monocytes # (test code 0.2 See_Comment [Aut omated message] The = Monocytes #) system which generated this result tra nsmitted reference range : <=0.8. The reference r leo was not used to int erpret this result as normal/abnormal . [facility]woodEwldecvSNDACQEYTE6154-10-26 05:33:00 Test Item Value Reference Range Interpretation Comments Eosinophils # (test code 0.2 See_Comment [A utomated message] The = Eosinophils #) system whic h generated this result tra nsmitted reference range : <=0.5. The reference r leo was not used to int erpret this result as normal/abnormal . [facility]woodBglqneoYDNHNICKHX5074-35-93 05:53:00 Test Item Value Reference Range Interpretation Comments PT (test code = PT) 14.4 s 12.0-14.7 [facility]woodRhhmbqpSSOJLQQURR6832-95-22 05:53:00 Test Item Value Reference Range Interpretation Comments INR (test code = INR) 1.13 1 0.85-1.17 [facility] KingwoodUswkpcbGATHNWUYFB7766-03-11 05:53:00 Test Item Value Reference Range Interpretation Comments Fibrinogen Lvl (test code = Fibrinogen 319 230-510 Lvl) [facility]woodUbdgrmeSZEIDHJWMR1469-60-47 05:53:00 Test Item Value Reference Range Interpretation Comments Thrombin Time (test code = Thrombin 15.9 s 15.0-21.2 Time) [facility]woodOvlzrzoUDYLEEUVEM1205-24-08 05:53:00 Test Item Value Reference Range Interpretation Comments PTT (test code = PTT) 47.0 s 22.9-35.8 [facility]woodXesrlzySTNZQDUEAG1906-24-30 05:53:00 Test Item Value Reference Range Interpretation Comments D-Dimer (test code = D-Dimer) 0.91 [place] 834271-08-05 05:53:00 Test Item Value Reference Range Interpretation Comments Basophils # (test code 0.1 See_Comment [Aut omated message] The = Basophils #) system which generated this result tra nsmitted reference range : <=0.2. The reference r leo was not used to int erpret this result as normal/abnormal . [facility]landsPARATHYROID [id number] 05:53:00 Test Item Value Reference Range Interpretation Comments Ca Ion WB (test code = Ca Ion WB) 1.24 1.05-1.25 [facility] [id number] 05:53:00 Test Item Value Reference Range Interpretation Comments Ca Norm WB (test code = Ca Norm WB) 1.25 1.05-1.25 [facility] [id number] 10:09:00 Test Item Value Reference Range Interpretation Comments ALT (test code = ALT) 49 See_Comment [Auto mated message] The system which ge nerated this result transmit rohit reference range : <=65. The reference range was not used to interpr et this result as reji l/abnormal. [facility] [id number] 10:09:00 Test Item Value Reference Range Interpretation Comments Albumin Lvl (test code = Albumin Lvl) 2.8 3.5-5.0 [facility] [id number] 10:09:00 Test Item Value Reference Range Interpretation Comments Alk Phos (test code = Alk Phos) 41 39-136 [facility] [id number] 10:09:00 Test Item Value Reference Range Interpretation Comments Bili Direct (test code 0.2 See_Comment [Aut omated message] The = Bili Direct) system which generated this result tra nsmitted reference range : <=0.3. The reference r leo was not used to int erpret this result as reji l/abnormal. [facility] [id number] 10:09:00 Test Item Value Reference Range Interpretation Comments Bili Total (test code = Bili Total) 0.6 0.2-1.3 [facility] [id number] 10:09:00 Test Item Value Reference Range Interpretation Comments Bili Indirect (test 0.4 See_Comment [Automa rohit message] The code = Bili Indirect) system which generated this result tra nsmitted reference range : <=1.0. The reference r leo was not used to int erpret this result as normal/abnormal . [facility] [employer] [id number] 10:09:00 Test Item Value Reference Range Interpretation Comments Total Protein (test code = Total 5.6 6.4-8.4 Protein) [facility] [id number] 10:09:00 Test Item Value Reference Range Interpretation Comments AST (test code = AST) 33 See_Comment [Auto mated message] The system which ge nerated this result transmit rohit reference range : <=37. The reference range was not used to interpr et this result as reji l/abnormal. [facility]landsKingX Studios [id number] 10:09:00 Test Item Value Reference Range Interpretation Comments Globulin (test code = Globulin) 2.8 2.7-4.2 [facility]landsKing[facility] Studios [id number] 10:09:00 Test Item Value Reference Range Interpretation Comments A/G Ratio (test code = A/G Ratio) 1.0 1 0.7-1.6 [facility]landsKingX Studios [id number] 10:09:00 Test Item Value Reference Range Interpretation Comments Amylase Lvl (test code = Amylase Lvl) 19 25-115 [facility] [id number] 10:09:00 Test Item Value Reference Range Interpretation Comments Lipase Lvl (test code = Lipase Lvl) no gt 73-393 [facility]landsXbbzkbhYJLVJKRMBE6088-68-54 10:09:00 Test Item Value Reference Range Interpretation Comments PTT (test code = PTT) 41.4 s 22.9-35.8 [facility]landsGtmgxmbXMRRCWAAUT0056-64-78 10:09:00 Test Item Value Reference Range Interpretation Comments PT (test code = PT) 15.4 s 12.0-14.7 [facility] CenterCajdzomNPSOYAFYIX9784-41-47 10:09:00 Test Item Value Reference Range Interpretation Comments INR (test code = INR) 1.24 1 0.85-1.17 [facility]landsJcmddveZPTHEBJXSP5005-45-06 10:09:00 Test Item Value Reference Range Interpretation Comments Fibrinogen Lvl (test code = Fibrinogen 312 230-510 Lvl) [facility]landsIsyyrvdULCVHBJFFX7089-54-87 10:09:00 Test Item Value Reference Range Interpretation Comments Thrombin Time (test code = Thrombin 16.6 s 15.0-21.2 Time) [facility]landsMqqnzogDAMCDWJHNZ7784-36-67 10:09:00 Test Item Value Reference Range Interpretation Comments D-Dimer (test code = D-Dimer) 4.91 [facility]landsTgpcwtyOXNYQOPVJN9377-30-74 10:09:00 Test Item Value Reference Range Interpretation Comments Basophils # (test code 0.1 See_Comment [Aut omated message] The = Basophils #) system which generated this result tra nsmitted reference range : <=0.2. The reference r leo was not used to int erpret this result as normal/abnormal . [facility] RKSPQLLZO8739-92-29 10:09:00 Test Item Value Reference Range Interpretation Comments Hgb A1C (test code = Hgb A1C) 5.6 [facility]landsCHEM [id number] 09:07:00 Test Item Value Reference Range Interpretation Comments Amylase Lvl (test code = Amylase Lvl) 4 25-115 [facility]landsLaluslqZHFHHGNKNV0217-32-34 09:07:00 Test Item Value Reference Range Interpretation Comments Thrombin Time (test code = Thrombin 18.0 s 15.0-21.2 Time) [facility] CenterDffddjxBXHJTQJION3521-47-47 09:07:00 Test Item Value Reference Range Interpretation Comments PT (test code = PT) 24.6 s 12.0-14.7 [facility] CenterThfroqhMYQOCGHPFA7675-79-97 09:07:00 Test Item Value Reference Range Interpretation Comments INR (test code = INR) 2.31 1 0.85-1.17 [facility] CenterEgfjozlHAAVKKVUAZ7917-17-18 09:07:00 Test Item Value Reference Range Interpretation Comments PTT (test code = PTT) 57.5 s 22.9-35.8 [facility] CenterTrlakhiXHWQRHFAMI9568-87-17 09:07:00 Test Item Value Reference Range Interpretation Comments Fibrinogen Lvl (test code = Fibrinogen 125 230-510 Lvl) [facility] CenterAdnvqjaOHFQFDGMWM8363-21-83 09:07:00 Test Item Value Reference Range Interpretation Comments D-Dimer (test code = D-Dimer) 2.28 [facility] [id number] 04:52:00 Test Item Value Reference Range Interpretation Comments RBC product (test code Product available = RBC product) (01/21/21 11:52 PM) [facility]landsCARVirtual Sales GroupAC [id number] 00:38:00 Test Item Value Reference Range Interpretation Comments Troponin-I (test code no gt See_Comment [Auto mated message] The = Troponin-I) system which g enerated this result transmit rohit reference range : <=0.40. The reference r leo was not used to interpr et this result as reji l/abnormal. [facility]landsdentaZOOM [id number] 17:47:00 Test Item Value Reference Range Interpretation Comments BNP (test code = BNP) 2324 [facility]landsdentaZOOM [id number] 17:47:00 Test Item Value Reference Range Interpretation Comments Troponin-I (test code 0.02 See_Comment [Auto mated message] The = Troponin-I) system which g enerated this result transmit rohit reference range : <=0.40. The reference r leo was not used to interpr et this result as reji l/abnormal. [facility]landsBzqjfxmDVRZLKTRKI3118-49-95 17:47:00 Test Item Value Reference Range Interpretation Comments Hep Bs Ag (test code Negative *NA*(01/21/21 = Hep Bs Ag) 12:47 PM) [facility] [id number] 17:43:00 Test Item Value Reference Range Interpretation Comments B/C Ratio (test code = B/C Ratio) 5 1 6-25 [facility] [id number] 17:43:00 Test Item Value Reference Range Interpretation Comments ALT (test code = ALT) 66 See_Comment [Auto mated message] The system which ge nerated this result transmit rohit reference range : <=65. The reference range was not used to interpr et this result as reji l/abnormal. [facility] [employer] [id number] 17:43:00 Test Item Value Reference Range Interpretation Comments Albumin Lvl (test code = Albumin Lvl) 3.0 3.5-5.0 [facility] [employer] [id number] 17:43:00 Test Item Value Reference Range Interpretation Comments Alk Phos (test code = Alk Phos) 40 39-136 [facility] [id number] 17:43:00 Test Item Value Reference Range Interpretation Comments Bili Total (test code = Bili Total) 0.5 0.2-1.3 [facility] [id number] 17:43:00 Test Item Value Reference Range Interpretation Comments Total Protein (test code = Total 5.7 6.4-8.4 Protein) [facility] [id number] 17:43:00 Test Item Value Reference Range Interpretation Comments AST (test code = AST) 52 See_Comment [Auto mated message] The system which ge nerated this result transmit rohit reference range : <=37. The reference range was not used to interpr et this result as reji l/abnormal. [facility] [employer] [id number] 17:43:00 Test Item Value Reference Range Interpretation Comments Globulin (test code = Globulin) 2.7 2.7-4.2 [facility]landsKingX Studios [id number] 17:43:00 Test Item Value Reference Range Interpretation Comments A/G Ratio (test code = A/G Ratio) 1.1 1 0.7-1.6 [facility]landsKing[facility] [id number] 17:43:00 Test Item Value Reference Range Interpretation Comments Lactic Acid Lvl (test code = Lactic 1.1 0.5-2.2 Acid Lvl) [facility] [id number] 16:20:00 Test Item Value Reference Range Interpretation Comments ABO/Rh (test code = ABO/Rh) B POS [facility] [id number] 16:20:00 Test Item Value Reference Range Interpretation Comments Antibody Scrn (test Negative (01/21/21 11:20 code = Antibody Scrn) AM) [facility] CenterQjiqctkTCWWQKRMFI3769-28-51 16:20:00 Test Item Value Reference Range Interpretation Comments Anisocyte (test code = 1+ *ABN*(01/21/21 Anisocyte) 11:20 AM) [facility] CentermyMedScoreAT[facility] [id number] 15:35:00 Test Item Value Reference Range Interpretation Comments Lactase Lvl (test code = Lactase Lvl) 2.0 [facility] CentermyMedScoreATRI[facility] [id number] 15:35:00 Test Item Value Reference Range Interpretation Comments Sucrase Lvl (test code = Sucrase Lvl) 38.6 [facility]landsMedipacsVEGAS VAL[facility] [id number] 15:35:00 Test Item Value Reference Range Interpretation Comments Maltase Lvl (test code = Maltase Lvl) 177.2 [facility]landsChu ShuATRIUM HEALTH CABARRUS LAB [id number] 15:35:00 Test Item Value Reference Range Interpretation Comments Palatinase Lvl (test code = Palatinase 13.8 Lvl) [facility] CenterLucgmyeJZSHAICBOSJT8764-28-26 13:21:00 Test Item Value Reference Range Interpretation Comments Potassium WB (test code = Potassium WB) 5.1 3.5-5.1 [facility]landsMxeaqqcIAZSXGIGXMKQF4476-00-66 13:21:00 Test Item Value Reference Range Interpretation Comments S Preg (test code = S Negative 8*NA*(01/21/21 Preg) 8:21 AM) [facility]landsHmahitgMGQVKGBWAC2505-62-96 11:19:00 Test Item Value Reference Range Interpretation Comments Coronavirus (COVID-19) Not Detected (01/21/21 EMANUEL (test code = 6:19 AM) Coronavirus (COVID-19) EMANUEL) [facility] [id number] 16:39:05 Test Item Value Reference Range Interpretation Comments Glucose POC (test 183 mg/dL 70-[address] consultant your code = Glucose POC) patient critically ill, the Merlin-Accu Check Infrom II meter should not be used for Glucose determination. Draw a venous Glucose and send to the main Lab for analysis. Urine Roaykro7670-39-85 11:32:13 Test Item Value Reference Range Interpretation [...] Escherichia coli C Urine Added by GL_SJM_UA_CUL_INDPOC [id number] 07:52:10 Test Item Value Reference Range Interpretation Comments Glucose POC (test 160 mg/dL 70-[address] you con road consultant your code = Glucose POC) patient critically ill, the Merlin-Accu Check Infrom II meter should not be used for Glucose determination. Draw a venous Glucose and send to the main Lab for analysis. POC [id number] 19:32:05 Test Item Value Reference Range Interpretation Comments Glucose POC (test 184 mg/dL 70-[address] consultant your code = Glucose POC) patient critically ill, the Merlin-Accu Check Infrom II meter should not be used for Glucose determination. Draw a venous Glucose and send to the main Lab for analysis. POC [id number] 17:16:35 Test Item Value Reference Range Interpretation Comments Glucose POC (test 281 mg/dL 70-115 H Notify RN or MDIf you code = Glucose POC) consider your patient critically ill, the Merlin-Accu Chec k Infrom II meter should not be used for Glucos e determination. Draw a venous Glucose and send to the main Lab for analysis. POC [id number] 12:00:38 Test Item Value Reference Range Interpretation Comments Glucose POC (test 138 mg/dL 70-115 H Notify RN or MDIf you code = Glucose POC) consider your patient critically ill, the Merlin-Accu Chec k Infrom II meter should not be used for Glucos e determination. Draw a venous Glucose and send to the main Lab for analysis. POC [id number] 07:41:32 Test Item Value Reference Range Interpretation Comments Glucose POC (test 206 mg/dL 70-115 H Notify RN or MDIf you code = Glucose POC) consider your patient critically ill, the Merlin-Accu Chec k Infrom II meter should not be used for Glucos e determination. Draw a venous Glucose and send to the main Lab for analysis. Urinalysis [id number] 21:07:21 Test Item Value Reference Range Interpretation Comments UA WBC (test code = UA WBC) TNTC 0-5 A UA RBC (test code = UA RBC) 6-10 0-5 A UA Bacteria (test code = UA Bacteria) Profuse A UA Squam Epithelial (test code = UA 6-10 A Squam Epithelial) Urinalysis with Culture, if [id number] 20:35:14 Test Item Value Reference Range Interpretation [...] Micro Indicated Not Indicated A Ind?) POC [id number] 19:06:34 Test Item Value Reference Range Interpretation Comments Glucose POC (test 207 mg/dL 70-[address] consultant your code = Glucose POC) patient critically ill, the Merlin-Accu Check Infrom II meter should not be used for Glucose determination. Draw a venous Glucose and send to the main Lab for analysis. POC [id number] 17:12:03 Test Item Value Reference Range Interpretation Comments Glucose POC (test 173 mg/dL 70-115 H Notify RN or MDIf you code = Glucose POC) consider your patient critically ill, the Merlin-Accu Chec k Infrom II meter should not be used for Glucos e determination. Draw a venous Glucose and send to the main Lab for analysis. POC [id number] 11:58:01 Test Item Value Reference Range Interpretation Comments Glucose POC (test 289 mg/dL 70-115 H Notify RN or MDIf you code = Glucose POC) consider your patient critically ill, the Merlin-Accu Chec k Infrom II meter should not be used for Glucos e determination. Draw a venous Glucose and send to the main Lab for analysis. POC [id number] 08:19:37 Test Item Value Reference Range Interpretation Comments Glucose POC (test 201 mg/dL 70-115 H Notify RN or MDIf you code = Glucose POC) consider your patient critically ill, the Merlin-Accu Chec k Infrom II meter should not be used for Glucos e determination. Draw a venous Glucose and send to the main Lab for analysis. POC [id number] 20:37:35 Test Item Value Reference Range Interpretation Comments Glucose POC (test 272 mg/dL 70-[address] consultant your code = Glucose POC) patient critically ill, the Merlin-Accu Check Infrom II meter should not be used for Glucose determination. Draw a venous Glucose and send to the main Lab for analysis. POC [id number] 17:23:05 Test Item Value Reference Range Interpretation Comments Glucose POC (test 229 mg/dL 70-[address] consultant your code = Glucose POC) patient critically ill, the Merlin-Accu Check Infrom II meter should not be used for Glucose determination. Draw a venous Glucose and send to the main Lab for analysis. POC [id number] 12:01:01 Test Item Value Reference Range Interpretation Comments Glucose POC (test 155 mg/dL 70-[address] consultant your code = Glucose POC) patient critically ill, the Mrelin-Accu Check Infrom II meter should not be used for Glucose determination. Draw a venous Glucose and send to the main Lab for analysis. POC [id number] 08:07:32 Test Item Value Reference Range Interpretation Comments Glucose POC (test 248 mg/dL 70-[address] consultant your code = Glucose POC) patient critically ill, the Merlin-Accu Check Infrom II meter should not be used for Glucose determination. Draw a venous Glucose and send to the main Lab for analysis. IG [id number] 06:50:39 Test Item Value Reference Range Interpretation Comments IG (test code = IG) 0.7 % 0.0-5.0 IG Abs (test code = IG Abs) 0 x10 N Complete Blood Count with [id number] 06:50:38 Test Item Value Reference Range Interpretation [...] code = IPF) 0 % N Automated [id number] 06:50:38 Test Item Value Reference Range Interpretation Comments Neutro Auto (test code = Neutro 50.3 % 36.0-70.0 Auto) Lymph Auto (test code = Lymph Auto) 38.6 % 12.0-44.0 Garvin Auto (test code = Garvin Auto) 7.3 % 0.0-11.0 Eos, Auto (test code = Eos, Auto) 2.4 % 0.0-7.0 Basophil Auto (test code = Basophil 0.7 % 0.0-2.0 Auto) Neutro Absolute (test code = Neutro 3.0 x10 1.6-7.4 Absolute) Lymph Absolute (test code = Lymph 2.28 x10 .50-4.60 Absolute) Garvin Absolute (test code = Garvin .43 x10 .00-1.20 Absolute) Eos Absolute (test code = Eos 0.14 x10 0.00-0.74 Absolute) Baso Absolute (test code = Baso 0.04 x10 0.00-0.21 Absolute) Basic Metabolic [id number] 05:38:20 Test Item Value Reference Range Interpretation [...] = Lipemia) 0 mg/dL 8-11 Basic Metabolic [id number] 05:38:20 Test Item Value Reference Range Interpretation [...] = 0 mg/dL 8-11 Lipemia) Basic Metabolic [id number] 05:38:20 Test Item Value Reference Range Interpretation [...] ag e have not been validated by [facility] MDRD study and should be interpreted [...] code = 0 mg/dL 8-11 Lipemia) POC [id number] 20:28:33 Test Item Value Reference Range Interpretation Comments Glucose POC (test 169 mg/dL 70-[address] consultant your code = Glucose POC) patient critically ill, the Merlin-Accu Check Infrom II meter should not be used for Glucose determination. Draw a venous Glucose and send to the main Lab for analysis. POC [id number] 16:39:30 Test Item Value Reference Range Interpretation Comments Glucose POC (test 103 mg/dL 70-[address] your code = Glucose POC) patient critically ill, the Merlin-Accu Check Infrom II meter should not be used for Glucose determination. Draw a venous Glucose and send to the main Lab for analysis. RPR [id number] 12:08:56 Test Item Value Reference Range Interpretation Comments RPR Qual (test code = RPR Qual) Non-Reactive Non-Reactive Reactive Control (test code = Reactive Reactive Control) Weak Reactive Control (test Weak Reactive code = Weak Reactive Control) Non-Reactive Control (test code Non-Reactive = Non-Reactive Control) Lot # (test code = Lot #) [id number] N Expiration Dt (test code = 03-20-2021 N Expiration Dt) POC [id number] 11:52:31 Test Item Value Reference Range Interpretation Comments Glucose POC (test 250 mg/dL 70-[address] consultant your code = Glucose POC) patient critically ill, the Merlin-Accu Check Infrom II meter should not be used for Glucose determination. Draw a venous Glucose and send to the main Lab for analysis. POC [id number] 07:55:29 Test Item Value Reference Range Interpretation Comments Glucose POC (test 205 mg/dL 70-[address] consultant your code = Glucose POC) patient critically ill, the Merlin-Accu Check Infrom II meter should not be used for Glucose determination. Draw a venous Glucose and send to the main Lab for analysis. Lipid [id number] 05:46:04 Test Item Value Reference Range Interpretation [...] LDL/HDL Ratio=L DL Calc/HDL Chol Thyroid Stimulating [id number] 05:46:04 Test Item Value Reference Range Interpretation Comments TSH (test code = TSH) 3.274 mcIU/mL 0.550-4.780 Hemoglobin [id number] 05:41:08 Test Item Value Reference Range Interpretation Comments Hemoglobin A1c (test code 7.6 % 4.0-5.8 H Di abetic >=6.5 = Hemoglobin A1c) %Prediabet es 5.7-6.4 %Normal <5.7 % Hepatitis B Surface [id number] 21:19:36 Test Item Value Reference Range Interpretation Comments Hep Bs Ag (test code = Hep Bs Non-Reactive Non-Reactive Ag) Novel Coronavirus SARS-CoV-2, [id number] 11:16:16 Test Item Value Reference Range Interpretation [...] Emergency Use Authorization." Novel Coronavirus (COVID-19), EMANUEL [id number] 11:11:24TNPTest not sent and performed at [facility].Rapid was perfomed in Microbiology.Wrong covid test was ord ered.Urine DOA [id number] 00:17:49 Test Item Value Reference Range Interpretation [...] Propoxyphene Confirmation wi thin 7 days. Alcohol [id number] 00:17:29 Test Item Value Reference Range Interpretation Comments Ethanol Level 9.0 mg/dL N The pharmacolo gical (test code = response to blo od alcohol Ethanol Level) levels may va ry from individual to i ndividual. The fatal omkar ntration has been report ed to be >400 mg/dl. Comprehensive Metabolic [id number] 00:17:28 Test Item Value Reference Range Interpretation [...] = Lipemia) 0 g/dL 1-2 Comprehensive Metabolic [id number] 00:17:28 Test Item Value Reference Range Interpretation [...] Total) ALT (test code = 17 U/L 49 ALT) AST (test code = 20 U/L [...] = 0 g/dL 1-2 Lipemia) Comprehensive Metabolic [id number] 00:17:28 Test Item Value Reference Range Interpretation [...] g/dL 1-2 Lipemia) Complete Blood Count with [id number] 23:26:28 Test Item Value Reference Range Interpretation [...] code = IPF) 0 % N Automated [id number] 23:26:28 Test Item Value Reference Range Interpretation Comments Neutro Auto (test code = Neutro 67.1 % 36.0-70.0 Auto) Lymph Auto (test code = Lymph Auto) 23.3 % 12.0-44.0 Garvin Auto (test code = Garvin Auto) 5.8 % 0.0-11.0 Eos, Auto (test code = Eos, Auto) 2.3 % 0.0-7.0 Basophil Auto (test code = Basophil 0.8 % 0.0-2.0 Auto) Neutro Absolute (test code = Neutro 6.0 x10 1.6-7.4 Absolute) Lymph Absolute (test code = Lymph 2.10 x10 .50-4.60 Absolute) Garvin Absolute (test code = Garvin .52 x10 .00-1.20 Absolute) Eos Absolute (test code = Eos 0.21 x10 0.00-0.74 Absolute) Baso Absolute (test code = Baso 0.07 x10 0.00-0.21 Absolute) IG [id number] 23:26:28 Test Item Value Reference Range Interpretation Comments IG (test code = IG) 0.7 % 0.0-5.0 IG Abs (test code = IG Abs) 0 x10 N HERPES VIRUS ANTIBODY, [id number] 21:46:00 Test Item Value Reference Range Interpretation Comments HERPES VIRUS IGM (BEAKER) Negative SE E ATTACHMENT (test code = 1808) BLOOD [id number] 06:00:00 Test Item Value Reference Range Interpretation Comments CULTURE (BEAKER) (test No growth in 5 days code = 1095) BLOOD [id number] 06:00:00 Test Item Value Reference Range Interpretation Comments CULTURE (BEAKER) (test No growth in 5 days code = 1095) POCT-GLUCOSE [id number] 12:11:00 Test Item Value Reference Range Interpretation Comments POC-GLUCOSE METER 154 mg/dL 70-110 H TESTED AT [place] [address] ([facility]) (test code = [place] 1538) [address] POCT-GLUCOSE [id number] 07:53:00 Test Item Value Reference Range Interpretation Comments POC-GLUCOSE METER 87 mg/dL 70-110 TESTED AT [place] [address] ([facility]) (test code = [place] [facility] [address]38) POCT-GLUCOSE [id number] 06:49:00 Test Item Value Reference Range Interpretation Comments POC-GLUCOSE METER 79 mg/dL 70-110 TESTED AT [facility] 6720 (BEAKER) (test code = [place] [address] 1538) COMPREHENSIVE METABOLIC [id number] 06:15:00 Test Item Value Reference Range Interpretation [...] S NOT APPLICABLE FOR DIALYSIS PATIEN TS. [id number] 06:11:00 Test Item Value Reference Range Interpretation Comments MAGNESIUM (BEAKER) (test code = 2.1 mg/dL 1.6-2.6 627) HEPATIC FUNCTION [id number] 06:11:00 Test Item Value Reference Range Interpretation [...] code = 513 U/L 6-55 H 347) [id number] 05:30:00 Test Item Value Reference Range Interpretation Comments FIBRINOGEN LEVEL (BEAKER) (test 368 mg/dl 225-434 code = 658) [id number] 05:30:00 Test Item Value Reference Range Interpretation Comments PARTIAL THROMBOPLASTIN TIME 42.2 seconds 22.5-36.0 H (BEAKER) (test code = 760) PROTHROMBIN [id number] 05:29:00 Test Item Value Reference Range Interpretation Comments PROTIME (BEAKER) (test code = 14.8 seconds 11.7-14.7 H 759) INR (BEAKER) (test code = 370) 1.2 <=5.9 RECOMMENDED COUMADIN/WARFARIN INR THERAPY RANGESSTANDARD DOSE: 2.0 - 3.0 Includes: PROPHYLAXIS forvenous thrombosis, systemic embolization; TREATMENT for venous thrombosis and/or pulmonary embolus.HIGH RISK: Target INR is 2.5-3.5 for patients with mechanical heart valves.POCT-GLUCOSE [id number] 21:09:00 Test Item Value Reference Range Interpretation Comments POC-GLUCOSE METER 178 mg/dL 70-110 H TESTED AT [facility] [address] ([facility]) (test code = [place] [facility] 1538) [address] POCT-GLUCOSE [id number] 17:18:00 Test Item Value Reference Range Interpretation Comments POC-GLUCOSE METER 178 mg/dL 70-110 H TESTED AT [facility] 67[address] ([facility]) (test code = [place] [facility] 1538) [address] POCT-GLUCOSE [id number] 13:48:00 Test Item Value Reference Range Interpretation Comments POC-GLUCOSE METER 150 mg/dL 70-110 H TESTED AT [place] [address] ([facility]) (test code = [place] [facility] 1538) [address] FACTOR 5 ACTIVITY (BLEEDING RISK)2017-01-06 10:04:00 Test Item Value Reference Range Interpretation Comments FACTOR V ACTIVITY ([facility]) (test code 90.0 % 60.0-150.0 = 665) Effective 10/24/2013: Reference Range Change-Adult onlyNew: 60.0-150.0 Previous: 50.0-150.0CYTOMEGALOVIRUS ANTIBODY, [id number] 09:42:00 Test Item Value Reference Range Interpretation Comments CYTOMEGALOVIRUS IGM ANTIBODY Negative ([facility]) (test code = 816) HERPES VIRUS ANTIBODY, [id number] 08:59:00 Test Item Value Reference Range Interpretation Comments 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[facility]) (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 G 1807) CYTOMEGALOVIRUS ANTIBODY, [id number] 08:59:00 Test Item Value Reference Range Interpretation Comments CYTOMEGALOVIRUS IGG ANTIBODY Positive ([facility]) (test code = 790) EBV-VCA ANTIBODY, [id number] 08:59:00 Test Item Value Reference Range Interpretation Comments JASE-WALL VCA IGG ([facility]) (test Positive code = 983) EBV-VCA ANTIBODY, [id number] 08:59:00 Test Item Value Reference Range Interpretation Comments JASE-WALL VCA IGM ([facility]) (test Negative code = 984) POCT-GLUCOSE [id number] 07:59:00 Test Item Value Reference Range Interpretation Comments POC-GLUCOSE METER 81 mg/dL 70-110 TESTED AT [place] [address] ([facility]) (test code = [facility] [place] [facility] [address] 1538) COMPREHENSIVE METABOLIC [id number] 06:23:00 Test Item Value Reference Range Interpretation Comments TOTAL PROTEIN 5.3 gm/dL 6.0-8.3 L ([facility]) (test code = 770) ALBUMIN ([facility]) 2.4 g/dL 3.5-5.0 L (test [...] S NOT APPLICABLE FOR DIALYSIS PATIEN TS. [id number] 06:17:00 Test Item Value Reference Range Interpretation Comments MAGNESIUM (BEAKER) (test code = 1.8 mg/dL 1.6-2.6 627) HEPATIC FUNCTION [id number] 06:17:00 Test Item Value Reference Range Interpretation [...] 364 U/L 5-34 H 353) ALT (SGPT) ([facility]) (test code = 779 U/L 6-55 H 347) [id number] 06:00:00 Test Item Value Reference Range Interpretation Comments FIBRINOGEN LEVEL ([facility]) (test 390 mg/dl 225-434 code = 658) [id number] 06:00:00 Test Item Value Reference Range Interpretation Comments PARTIAL THROMBOPLASTIN TIME 40.2 seconds 22.5-36.0 H ([facility]) (test code = 760) PROTHROMBIN [id number] 05:59:00 Test Item Value Reference Range Interpretation Comments PROTIME ([facility]) (test code = 14.6 seconds 11.7-14.7 759) INR ([facility]) (test code = 370) 1.2 <=5.9 RECOMMENDED COUMADIN/WARFARIN INR THERAPY RANGESSTANDARD DOSE: 2.0 - 3.0 Includes: PROPHYLAXIS forvenous thrombosis, systemic embolization; TREATMENT for venous thrombosis and/or pulmonary embolus.HIGH RISK: Target INR is 2.5-3.5 for patients with mechanical heart valves.POCT-GLUCOSE [id number] 21:46:00 Test Item Value Reference Range Interpretation Comments POC-GLUCOSE METER 153 mg/dL 70-110 H TESTED AT [place] [address] ([facility]) (test code = [place] [facility] 1538) [address] POCT-GLUCOSE [id number] 18:47:00 Test Item Value Reference Range Interpretation Comments POC-GLUCOSE METER 181 mg/dL 70-110 H TESTED AT [place] [address] ([facility]) (test code = [place] [facility] 1538) [address] POCT-GLUCOSE [id number] 12:40:00 Test Item Value Reference Range Interpretation Comments POC-GLUCOSE METER 178 mg/dL 70-110 H TESTED AT [place] [address] ([facility]) (test code = [place] [facility] 1538) [address] POCT-GLUCOSE [id number] 07:51:00 Test Item Value Reference Range Interpretation Comments POC-GLUCOSE METER 166 mg/dL 70-110 H TESTED AT [place] [address] ([facility]) (test code = [place] [facility] 1538) [address] COMPREHENSIVE METABOLIC [id number] 03:26:00 Test Item Value Reference Range Interpretation [...] S NOT APPLICABLE FOR DIALYSIS PATIEN TS. [id number] 03:22:00 Test Item Value Reference Range Interpretation Comments MAGNESIUM (BEAKER) (test code = 1.4 mg/dL 1.6-2.6 L 627) HEPATIC FUNCTION [id number] 03:22:00 Test Item Value Reference Range Interpretation [...] code = 1009 U/L 6-55 H 347) [id number] 03:12:00 Test Item Value Reference Range Interpretation Comments AMMONIA (BEAKER) (test code = 348) 29 mol/L 18-72 [id number] 03:10:00 Test Item Value Reference Range Interpretation Comments PARTIAL THROMBOPLASTIN TIME 42.3 seconds 22.5-36.0 H (BEAKER) (test code = 760) PROTHROMBIN [id number] 03:09:00 Test Item Value Reference Range Interpretation Comments PROTIME (BEAKER) (test code = 16.4 seconds 11.7-14.7 H 759) INR (BEAKER) (test code = 370) 1.3 <=5.9 RECOMMENDED COUMADIN/WARFARIN INR THERAPY RANGESSTANDARD DOSE: 2.0 - 3.0 Includes: PROPHYLAXIS forvenous thrombosis, systemic embolization; TREATMENT for venous thrombosis and/or pulmonary embolus.HIGH RISK: Target INR is 2.5-3.5 for patients with mechanical heart valves.[id number] 03:09:00 Test Item Value Reference Range Interpretation Comments FIBRINOGEN LEVEL (BEAKER) (test 413 mg/dl 225-434 code = 658) CBC W/PLT COUNT & AUTO [id number] 03:09:00 Test Item Value Reference Range Interpretation [...] L 0.00-0.20 (test code = 417) 0.00POCT-GLUCOSE [id number] 22:33:00 Test Item Value Reference Range Interpretation Comments POC-GLUCOSE METER 230 mg/dL 70-110 H TESTED AT [facility] 67[address] ([facility]) (test code = [place] 1538) [address] POCT-GLUCOSE [id number] 18:17:00 Test Item Value Reference Range Interpretation Comments POC-GLUCOSE METER 222 mg/dL 70-110 H TESTED AT [facility] 67[address] (BEAKER) (test code = [place] 1538) [address] COMPREHENSIVE METABOLIC [id number] 16:59:00 Test Item Value Reference Range Interpretation [...] PATIEN TS. PERIPHERAL BLOOD SMEAR - PATHOLOGIST [id number] 15:30:00 Test Item Value Reference Range Interpretation Comments RBC MORPHOLOGY Polychromasia (BEAKER) (test code = 2846) RBC MORPHOLOGY Anisocytosis (BEAKER) (test code = 14940) PERIPHERAL SMR REVIEW Cell counts confirmed (BEAKER) (test code = 7572) [id number] Josefina Lara M.D. (BEAKER) (test code = (electronic signature) 1177) PROTHROMBIN [id number] 15:12:00 Test Item Value Reference Range Interpretation Comments PROTIME (Sisteer) (test code = 16.6 seconds 11.7-14.7 H 759) INR (Sisteer) (test code = 370) 1.4 <=5.9 RECOMMENDED COUMADIN/WARFARIN INR THERAPY RANGESSTANDARD DOSE: 2.0 - 3.0 Includes: PROPHYLAXIS forvenous thrombosis, systemic embolization; TREATMENT for venous thrombosis and/or pulmonary embolus.HIGH RISK: Target INR is 2.5-3.5 for patients with mechanical heart valves.ANTI-NUCLEAR ANTIBODY (IVETTE)2017-01-04 14:32:00 Test Item Value Reference Range Interpretation Comments ANTI-NUCLEAR ANTIBODY (IVETTE) (Sisteer) Negative Negative (test code = 418) POCT-GLUCOSE [id number] 12:47:00 Test Item Value Reference Range Interpretation Comments POC-GLUCOSE METER 212 mg/dL 70-110 H TESTED AT [facility] 67[address] (Sisteer) (test code = [place] 1538) [address] [id number] 12:34:00 Test Item Value Reference Range Interpretation Comments RPR SCREEN (Sisteer) (test code = Nonreactive Nonreactive 420) CLOSTRIDIUM DIFFICILE TOXIN [id number] 10:12:00 Test Item Value Reference Range Interpretation Comments CLOSTRIDIUM DIFFICILE TOXIN, PCR Not Detected Not Detected (Sisteer) (test code = 1525) This qualitative real-time [...] Reference Range Change-Adult onlyNew: 60.0-150.0 Previous: 50.0-150.0POCT-GLUCOSE [id number] 06:40:00 Test Item Value Reference Range Interpretation Comments POC-GLUCOSE METER 167 mg/dL 70-110 H TESTED AT [facility] 67[address] (BEAKER) (test code = [place] 1538) [address] COMPREHENSIVE METABOLIC [id number] 04:08:00 Test Item Value Reference Range Interpretation [...] ESTIM ATED GFR. Specimen slightly ictericHEPATIC FUNCTION [id number] 04:06:00 Test Item Value Reference Range Interpretation [...] 1091 U/L 6-55 H 347) Specimen slightly [id number] 04:01:00 Test Item Value Reference Range Interpretation Comments FIBRINOGEN LEVEL (BEAKER) (test 379 mg/dl 225-434 code = 658) [id number] 04:01:00 Test Item Value Reference Range Interpretation Comments PARTIAL THROMBOPLASTIN TIME 40.7 seconds 22.5-36.0 H (BEAKER) (test code = 760) PROTHROMBIN [id number] 04:00:00 Test Item Value Reference Range Interpretation [...] L 0.00-0.20 (test code = 417) 0.00POCT-GLUCOSE [id number] 00:19:00 Test Item Value Reference Range Interpretation Comments POC-GLUCOSE METER 159 mg/dL 70-110 H TESTED AT [facility] 67[address] (BEAKER) (test code = [place] 1538) [address] POCT-GLUCOSE [id number] 18:56:00 Test Item Value Reference Range Interpretation Comments POC-GLUCOSE METER 192 mg/dL 70-110 H TESTED AT [facility] 6720 (BEAKER) (test code = [facility] Edu[place] 1538) [address] COMPREHENSIVE METABOLIC [id number] 16:55:00 Test Item Value Reference Range Interpretation [...] CALCULATE ESTIM ATED GFR. Specimen slightly ictericPROTHROMBIN [id number] 16:37:00 Test Item Value Reference Range Interpretation Comments PROTIME (BEAKER) (test code = 20.9 seconds 11.7-14.7 H 759) INR (BEAKER) (test code = 370) 1.8 <=5.9 RECOMMENDED COUMADIN/WARFARIN INR THERAPY RANGESSTANDARD DOSE: 2.0 - 3.0 Includes: PROPHYLAXIS forvenous thrombosis, systemic embolization; TREATMENT for venous thrombosis and/or pulmonary embolus.HIGH RISK: Target INR is 2.5-3.5 for patients with mechanical heart valves.HEPATITIS B SURFACE [id number] 14:05:00 Test Item Value Reference Range Interpretation Comments HEPATITIS B SURFACE ANTIBODY < mIU/mL <8.0 (BEAKER) (test code = 647) HEPATITIS B CORE ANTIBODY, [id number] 13:43:00 Test Item Value Reference Range Interpretation Comments HEPATITIS B CORE TOTAL ANTIBODY Nonreactive Nonreactive (BEAKER) (test code = 497) BLOOD GAS, [id number] 13:35:00 Test Item Value Reference Range Interpretation [...] code = 1819) 28.0 % URINALYSIS W/ [id number] 13:16:00 Test Item Value Reference Range Interpretation [...] 1584) SOURCE(BEAKER) (test code = Urine, [place] 4758) VITAMIN D, [id number] 13:14:00 Test Item Value Reference Range Interpretation Comments VITAMIN D 25-OH (BEAKER) (test code = < ng/mL 13.0-47.8 L 2764) ALPHA FETOPROTEIN (AFP), TUMOR [id number] 13:06:00 Test Item Value Reference Range Interpretation Comments ALPHA-FETOPROTEIN (BEAKER) (test code < ng/mL <10.0 = 1094) Effective 05/08/2014: Reference Range ChangeNew: <10.0 Previous: 0.0-8.0 HEMOGLOBIN [id number] 13:05:00 Test Item Value Reference Range Interpretation Comments HEMOGLOBIN A1C (BEAKER) (test code = 7.6 % 4.3-6.1 H 368) CARCINOEMBRYONIC ANTIGEN (CEA)2017-01-03 12:59:00 Test Item Value Reference Range Interpretation Comments CARCINOEMBRYONIC ANTIGEN (BEAKER) 2.0 ng/mL 0.0-5.0 (test code = 685) [id number] 12:59:00 Test Item Value Reference Range Interpretation Comments FERRITIN (BEAKER) (test code = 1841 ng/mL 5-275 H 361) Effective 05/08/2014: Reference Range ChangeNew: Male 5-275 Previous: Male 22-322 Female 5-275 Female [id number] 12:58:00 Test Item Value Reference Range Interpretation Comments T4 TOTAL (BEAKER) (test code = 895) 4.5 ug/dL 4.9-11.7 L [id number] 12:58:00 Test Item Value Reference Range Interpretation Comments THYROID STIMULATING HORMONE 1.79 uIU/mL 0.35-4.94 (BEAKER) (test code = 772) [id number] 12:58:00 Test Item Value Reference Range Interpretation Comments T3 TOTAL (BEAKER) (test code = 656) 34 ng/dL 48-159 L Effective 05/08/2014: Reference Range ChangeNew: 48-159 Previous: 60-181 CALCIUM, [id number] 12:47:00 Test Item Value Reference Range Interpretation Comments CALCIUM IONIZED (BEAKER) (test 1.05 mmol/L 1.12-1.27 L code = 698) PH, BLOOD (BEAKER) (test code = 7.43 1810) [id number] 12:42:00 Test Item Value Reference Range Interpretation [...] % 20-55 (test code = 2590) URIC [id number] 12:40:00 Test Item Value Reference Range Interpretation Comments URIC ACID (BEAKER) (test code = 16.0 mg/dL 2.6-7.2 H 773) Specimen slightly ictericLIPID [id number] 12:40:00 Test Item Value Reference Range Interpretation Comments TRIGLYCERIDES (BEAKER) (test code = 134 mg/dL 540) CHOLESTEROL (BEAKER) (test code = 120 mg/dL 631) HDL CHOLESTEROL (AKER) (test code 7 mg/dL = 976) LDL CHOLESTEROL CALCULATED ([facility]) 86 mg/dL (test code = 633) Triglyceride Reference Range: Low Risk <150 Borderline 150-199 High Risk 200-499 Very High Risk >=500Cholesterol Reference Range: Low Risk <200 Borderline 200-239 High Risk >240HDL Cholesterol Reference Range: Low Risk >=60 High Risk <40LDL Cholesterol Reference Range: Optimal <100 Near Optimal 100-129 Borderline 130-159 High 160-189 Very High >=190 Specimen slightly ictericBILIRUBIN, [id number] 12:40:00 Test Item Value Reference Range Interpretation Comments BILIRUBIN DIRECT (Sisteer) (test 2.4 mg/dL 0.1-0.5 H code = 706) GAMMA GLUTAMYL TRANSFERASE (GGT)2017-01-03 12:40:00 Test Item Value Reference Range Interpretation Comments GAMMA GLUTAMYL TRANSFERASE (Sisteer) 53 U/L 9-64 (test code = 364) Specimen slightly [id number] 12:39:00 Test Item Value Reference Range Interpretation Comments ETHANOL (Sisteer) (test code = 400) < mg/dL <=10 SCREEN, [id number] 12:36:00 Test Item Value Reference Range Interpretation Comments TEST URINE (Sisteer) (test Negative code = 583) POCT-GLUCOSE [id number] 12:34:00 Test Item Value Reference Range Interpretation Comments POC-GLUCOSE METER 189 mg/dL 70-110 H TESTED AT [facility] 6720 ([facility]) (test code = [place] 1538) [address] HIV-1 ANTIGEN WITH HIV-1/2 [id number] 11:58:00 Test Item Value Reference Range Interpretation Comments HIV-1 ANTIGEN WITH HIV 1\\T\\2 Nonreactive Nonreactive ANTIBODY (2) (Sisteer) (test code = 2586) TROPONIN [id number] 09:44:00 Test Item Value Reference Range Interpretation Comments TROPONIN I (Sisteer) (test code = 0.34 ng/mL 0.00-0.03 397) [...] Previous: 0.0-4.9CK-MB Reference Range:<6.7 Normal6.7-10.0 Borderline>10.0 AbnormalACETAMINOPHEN [id number] 08:31:00 Test Item Value Reference Range Interpretation Comments ACETAMINOPHEN LEVEL (BEAKER) (test < ug/mL 10.0-30.0 L code = 344) TROPONIN [id number] 05:53:00 Test Item Value Reference Range Interpretation [...] acute neurological disease, and persistent tachyarrhythmia.BASIC METABOLIC [id number] 05:53:00 Test Item Value Reference Range Interpretation [...] TO CALCULA TE ESTIMATED GFR. Specimen slightly wuroctlKPLDNGJWQM2602-77-09 05:52:00 Test Item Value Reference Range Interpretation Comments PHOSPHORUS (BEAKER) (test code = 5.7 mg/dL 2.3-4.7 H 604) HEPATIC FUNCTION [id number] 05:52:00 Test Item Value Reference Range Interpretation [...] Specimen slightly ictericCREATINE KINASE (CK), TOTAL AND [id number] 05:52:00 Test Item Value Reference Range Interpretation Comments CREATINE KINASE TOTAL (BEAKER) 341 U/L 29-200 H (test code = 380) CREATINE KINASE-MB (BEAKER) (test 5.4 ng/mL 0.0-6.6 code = 750) CREATINE KINASE-MB INDEX (BEAKER) 1.6 % (test code = 395) Effective 05/08/2014: CK-MB Reference Range ChangeNew: 0.0-6.6 Previous: 0.0-4.9CK-MB Reference Range:<6.7 Normal6.7-10.0 Borderline>10.0 AbnormalCBC W/PLT COUNT & AUTO [id number] 05:48:00 Test Item Value Reference Range Interpretation [...] K/ L 0.00-0.20 (test code = 417) 0.15PHOTJEDKOD2350-35-85 05:09:00 Test Item Value Reference Range Interpretation Comments FIBRINOGEN LEVEL (BEAKER) (test 427 mg/dl 225-434 code = 658) [id number] 05:09:00 Test Item Value Reference Range Interpretation Comments PARTIAL THROMBOPLASTIN TIME 36.2 seconds 22.5-36.0 H (BEAKER) (test code = 760) PROTHROMBIN TIME/[id number] 05:08:00 Test Item Value Reference Range Interpretation Comments PROTIME (BEAKER) (test code = 22.8 seconds 11.7-14.7 H 759) INR (BEAKER) (test code = 370) 2.0 <=5.9 RECOMMENDED COUMADIN/WARFARIN INR THERAPY RANGESSTANDARD DOSE: 2.0 - 3.0 Includes: PROPHYLAXIS forvenous thrombosis, systemic embolization; TREATMENT for venous thrombosis and/or pulmonary embolus.HIGH RISK: Target INR is 2.5-3.5 for patients with mechanical heart valves.HEPATITIS PANEL, [id number] 03:40:00 Test Item Value Reference Range Interpretation Comments HEPATITIS A IGM ANTIBODY (BEAKER) Nonreactive Nonreactive (test code = 498) HEPATITIS B CORE IGM ANTIBODY Nonreactive Nonreactive (BEAKER) (test code = 645) HEPATITIS C ANTIBODY (BEAKER) Nonreactive Nonreactive (test code = 367) HEPATITIS B SURFACE ANTIGEN (2) Nonreactive Nonreactive (BEAKER) (test code = 2585) CREATININE, RANDOM [id number] 03:18:00 Test Item Value Reference Range Interpretation Comments CREATININE URINE (BEAKER) (test 118.7 mg/dL code = 375) Reference Range: No NormalsSODIUM, RANDOM [id number] 03:18:00 Test Item Value Reference Range Interpretation Comments SODIUM URINE (BEAKER) (test code = 60 meq/L 243) Reference Range: No NormalsUREA NITROGEN, RANDOM [id number] 03:18:00 Test Item Value Reference Range Interpretation Comments UREA NITROGEN URINE (BEAKER) (test 303 mg/dL code = 538) Reference Range: No [id number] 03:07:00 Test Item Value Reference Range Interpretation Comments AMMONIA (BEAKER) (test code = 348) 48 mol/L 18-72 M-[id number] 02:57:00 Test Item Value Reference Range Interpretation [...] within 95-100% range. URINALYSIS W/ REFLEX URINE [id number] 02:53:00 Test Item Value Reference Range Interpretation [...] = 514) SOURCE(BEAKER) (test code = 2795) [id number] 02:49:00 Test Item Value Reference Range Interpretation Comments PARTIAL THROMBOPLASTIN TIME 39.4 seconds 22.5-36.0 H (BEAKER) (test code = 760) PROTHROMBIN TIME/[id number] 02:48:00 Test Item Value Reference Range Interpretation Comments PROTIME (BEAKER) (test code = 22.0 seconds 11.7-14.7 H 759) INR (BEAKER) (test code = 370) 1.9 <=5.9 RECOMMENDED COUMADIN/WARFARIN INR THERAPY RANGESSTANDARD DOSE: 2.0 - 3.0 Includes: PROPHYLAXIS forvenous thrombosis, systemic embolization; TREATMENT for venous thrombosis and/or pulmonary embolus.HIGH RISK: Target INR is 2.5-3.5 for patients with mechanical heart valves.[id number] 02:48:00 Test Item Value Reference Range Interpretation Comments FIBRINOGEN LEVEL (BEAKER) (test 421 mg/dl 225-434 code = 658) BLOOD GAS, [id number] 02:43:00 Test Item Value Reference Range Interpretation [...] 21.0 % CBC W/PLT COUNT & AUTO [id number] 02:43:00 Test Item Value Reference Range Interpretation [...] code = 417) 0.00LACTIC ACID, VENOUS, WHOLE [id number] 02:35:00 Test Item Value Reference Range Interpretation Comments LACTATE BLOOD VENOUS (2) (BEAKER) 0.8 mmol/L 0.5-2.2 (test code = 2872) Effective 10/23/2015: Units/Reference Range ChangeNew: 0.5-2.2 mmol/L Previous: 5-20 mg/dLSpecimen slightly usdsqyuLXQWMMFYDVEJ4035-40-37 11:32:00 Test Item Value Reference Range Interpretation Comments AGAP (test code = AGAP) 14.6 10.0-20.0 [facility]IkmtookRPGDFIIABWYN9452-07-81 11:32:00 Test Item Value Reference Range Interpretation Comments eGFR (test code = eGFR) 33 [facility] HospitalEhoffudKBSAZFYBAEEF0760-34-95 11:32:00 Test Item Value Reference Range Interpretation Comments Calcium Lvl (test code = Calcium Lvl) 8.3 8.5-10.5 [facility] HospitalOwpdiagLTZCQKUWRRKM8412-82-62 11:32:00 Test Item Value Reference Range Interpretation Comments Glucose Lvl (test code = Glucose Lvl) 81 70-99 [facility] HospitalHvdrxecHGPYLSCYYIWR3257-17-58 11:32:00 Test Item Value Reference Range Interpretation Comments Creatinine Lvl (test code = Creatinine 1.95 0.50-1.40 Lvl) [facility] HospitalEnfsihtGHBCOENUBXIO3511-62-21 11:32:00 Test Item Value Reference Range Interpretation Comments BUN (test code = BUN) 55 7-22 [facility] HospitalUkkruatGALEPWMOZOSQ5303-72-06 11:32:00 Test Item Value Reference Range Interpretation Comments CO2 (test code = CO2) 19 24-32 [facility] HospitalUkobbpbYSSJCRWFSENF1190-75-98 11:32:00 Test Item Value Reference Range Interpretation Comments Chloride Lvl (test code = Chloride Lvl) 110 95-109 [facility] HospitalRptswmrCKNDEGQEDIYU4208-37-02 11:32:00 Test Item Value Reference Range Interpretation Comments Sodium Lvl (test code = Sodium Lvl) 139 135-145 [facility] HospitalZbrrbwsVWNHNMTRYVGN1194-05-18 11:32:00 Test Item Value Reference Range Interpretation Comments Potassium Lvl (test code = Potassium 4.6 3.5-5.1 Lvl) [facility]PohkvlfRSZJTZZFMS8320-36-68 11:32:00 Test Item Value Reference Range Interpretation Comments Lymphocytes (test code = Lymphocytes) 30.4 20.0-40.0 [facility]woodPulmoobGEZAVRTXJF7046-56-31 11:32:00 Test Item Value Reference Range Interpretation Comments Eosinophils (test code = 4.5 See_Comment [A utomated message] The Eosinophils) system which ge nerated this result tra nsmitted reference range : <=4.0. The reference r leo was not used to int erpret this result as normal/abnormal . [facility]woodYhcmilpPBDPSMRTLW4295-92-36 11:32:00 Test Item Value Reference Range Interpretation Comments Monocytes (test code = Monocytes) 13.7 2.0-12.0 [facility]woodUlomgijAXEAKBNKUN9277-46-65 11:32:00 Test Item Value Reference Range Interpretation Comments Segs-Bands # (test code = Segs-Bands #) 2.6 1.5-8.1 [facility]woodTonlrrrAEEQJHJMMN0264-61-20 11:32:00 Test Item Value Reference Range Interpretation Comments Basophils (test code = 0.7 See_Comment [Aut omated message] The Basophils) system which ge nerated this result tra nsmitted reference range : <=1.0. The reference r leo was not used to int erpret this result as normal/abnormal . [facility]woodBfaiyadCYHTHTUXVV7861-01-34 11:32:00 Test Item Value Reference Range Interpretation Comments Monocytes # (test code 0.7 See_Comment [Aut omated message] The = Monocytes #) system which generated this result tra nsmitted reference range : <=0.8. The reference r leo was not used to int erpret this result as normal/abnormal . [facility]woodNgigbvaMCMJQEUJPJ2096-16-64 11:32:00 Test Item Value Reference Range Interpretation Comments Lymphocytes # (test code = Lymphocytes 1.6 1.0-5.5 #) [facility]woodLdotzciNBFYGOCFZB9267-06-89 11:32:00 Test Item Value Reference Range Interpretation Comments Eosinophils # (test code 0.2 See_Comment [A utomated message] The = Eosinophils #) system whic h generated this result tra nsmitted reference range : <=0.5. The reference r leo was not used to int erpret this result as normal/abnormal . [facility]woodGsogidaUZHYARSCID4059-35-01 11:32:00 Test Item Value Reference Range Interpretation Comments Segs (test code = Segs) 50.7 45.0-75.0 [facility]woodKxsigbgLIVJOJRQDP9755-46-40 11:32:00 Test Item Value Reference Range Interpretation [...] iron deficiency anemia, and renal disease. CPT: 82099 [facility]woodHkgbykuAHCRZZJDDC4986-41-60 11:32:00 Test Item Value Reference Range Interpretation Comments Hct (test code = Hct) 28.1 36.0-48.0 [facility]woodFkbblltGXPJAGEYJC0825-73-42 11:32:00 Test Item Value Reference Range Interpretation Comments RBC (test code = RBC) 3.39 4.20-5.40 [facility]woodTyozbyxNZLPLLTRMD7037-28-20 11:32:00 Test Item Value Reference Range Interpretation Comments Hgb (test code = Hgb) 8.9 12.0-16.0 [facility]woodTqpyldtXQLTHNANVM3084-51-59 11:32:00 Test Item Value Reference Range Interpretation Comments WBC (test code = WBC) 5.1 3.7-10.4 [facility]woodQigtjkpJHPBVJQSON8627-36-15 11:32:00 Test Item Value Reference Range Interpretation Comments MPV (test code = MPV) 11.3 7.4-10.4 [facility]woodMxsltfsHYMMFPBBWE7238-74-13 11:32:00 Test Item Value Reference Range Interpretation Comments Platelet (test code = Platelet) 118 133-450 [facility]woodFfzkbcwDHICNLANWW3321-76-88 11:32:00 Test Item Value Reference Range Interpretation Comments MCHC (test code = MCHC) 31.8 32.0-36.0 [facility]woodNiqmxrwPQFMIBCOQO0769-88-01 11:32:00 Test Item Value Reference Range Interpretation Comments RDW (test code = RDW) 18.0 11.5-14.5 [facility]woodRxnidppHEBYLFKTAI7839-16-13 11:32:00 Test Item Value Reference Range Interpretation Comments MCV (test code = MCV) 83.0 80.0-98.0 [facility]woodBcoucznJBIDAUPROG7104-92-60 11:32:00 Test Item Value Reference Range Interpretation Comments MCH (test code = MCH) 26.4 pg 27.0-31.0 [facility]JbhsdsiKYGWCAMONO3384-24-81 11:32:00 Test Item Value Reference Range Interpretation Comments C3 Complement (test code = C3 137 88-201 Complement) [facility]LsmeshcUVVMIQPKEI2082-79-18 11:32:00 Test Item Value Reference Range Interpretation Comments HIV. (test code = Negative *NA*(07/30/16 HIV.) 5:32 AM) [facility]woodCyybifiRFLURECOEM9007-01-75 11:05:00 Test Item Value Reference Range Interpretation [...] iron deficiency anemia, and renal disease. CPT: 70854 [facility]VonhkcoSWUKZYCEWF7213-74-55 11:05:00 Test Item Value Reference Range Interpretation Comments HIV. (test code = Negative *NA*(07/29/16 HIV.) 5:05 AM) [facility]BwxwelnWVGMNZSECZ4622-26-60 11:05:00 Test Item Value Reference Range Interpretation Comments C3 Complement (test code = C3 92 88-201 Complement) [facility]2017-02-07 15:50:00 Test Item Value Reference Range Interpretation Comments eGFR (test code = eGFR) 25 [facility]2017-02-07 15:50:00 Test Item Value Reference Range Interpretation Comments BUN (test code = BUN) 55 7-22 [facility]2017-02-07 15:50:00 Test Item Value Reference Range Interpretation Comments CO2 (test code = CO2) 23 24-32 [facility]2017-02-07 15:50:00 Test Item Value Reference Range Interpretation Comments Chloride Lvl (test code = Chloride Lvl) 109 95-109 [facility]2017-02-07 15:50:00 Test Item Value Reference Range Interpretation Comments Glucose Lvl (test code = Glucose Lvl) 101 70-99 [facility]2017-02-07 15:50:00 Test Item Value Reference Range Interpretation Comments Potassium Lvl (test code = Potassium 4.0 3.5-5.1 Lvl) [facility]2017-02-07 15:50:00 Test Item Value Reference Range Interpretation Comments Sodium Lvl (test code = Sodium Lvl) 141 135-145 [facility]2017-02-07 15:50:00 Test Item Value Reference Range Interpretation Comments AGAP (test code = AGAP) 13.0 10.0-20.0 [facility]2017-02-07 15:50:00 Test Item Value Reference Range Interpretation Comments Calcium Lvl (test code = Calcium Lvl) 7.7 8.5-10.5 [facility]2017-02-07 15:50:00 Test Item Value Reference Range Interpretation Comments Creatinine Lvl (test code = Creatinine 2.49 0.50-1.40 Lvl) [facility]woodMfgwzhuZQKETZSIPH9670-38-78 15:50:00 Test Item Value Reference Range Interpretation Comments PT (test code = PT) 14.8 s 12.0-14.7 [facility]woodHwsqlbkFTWVGTJTYX5037-91-29 15:50:00 Test Item Value Reference Range Interpretation Comments PTT (test code = PTT) 40.8 s 22.9-35.8 [facility]woodRquvrjpIJWXMLRHSV7241-20-94 15:50:00 Test Item Value Reference Range Interpretation Comments INR (test code = INR) 1.14 0.85-1.17 [facility]landsGicqqunMATTQALXAA2562-62-03 15:50:00 Test Item Value Reference Range Interpretation Comments C3 Complement (test code = C3 94 88-201 Complement) [facility]woodEwrwbxqWTLALQHCOL5286-32-53 10:35:00 Test Item Value Reference Range Interpretation Comments Lymphocytes # (test code = Lymphocytes 1.7 1.0-5.5 #) [facility]woodBhebuhnAPFMFNKJWH1665-50-68 10:35:00 Test Item Value Reference Range Interpretation Comments Segs-Bands # (test code = Segs-Bands #) 2.7 1.5-8.1 [facility]woodJtyeyklQYLQGSVUVS3493-95-90 10:35:00 Test Item Value Reference Range Interpretation Comments Eosinophils # (test code 0.1 See_Comment [A utomated message] The = Eosinophils #) system whic h generated this result tra nsmitted reference range : <=0.5. The reference r leo was not used to int erpret this result as normal/abnormal . [facility]woodJvrzezmCYSHNLSUWY3420-77-36 10:35:00 Test Item Value Reference Range Interpretation Comments Monocytes # (test code 0.7 See_Comment [Aut omated message] The = Monocytes #) system which generated this result tra nsmitted reference range : <=0.8. The reference r leo was not used to int erpret this result as normal/abnormal . [facility]woodQpovhegXINMGXTUCA6337-35-85 10:35:00 Test Item Value Reference Range Interpretation Comments Segs (test code = Segs) 51.3 45.0-75.0 [facility]woodAitqmyuTWJFDVKUUI2491-30-19 10:35:00 Test Item Value Reference Range Interpretation Comments Lymphocytes (test code = Lymphocytes) 31.6 20.0-40.0 [facility]woodKedklrkQKSXRCMEKC1585-89-58 10:35:00 Test Item Value Reference Range Interpretation Comments Monocytes (test code = Monocytes) 14.1 2.0-12.0 [facility]woodYpnlxhmDBMFLZBVUU3686-93-37 10:35:00 Test Item Value Reference Range Interpretation Comments Eosinophils (test code = 2.6 See_Comment [A utomated message] The Eosinophils) system which ge nerated this result tra nsmitted reference range : <=4.0. The reference r leo was not used to int erpret this result as normal/abnormal . [facility]woodZkxvgpdHAPXWHXSOZ4276-92-96 10:35:00 Test Item Value Reference Range Interpretation Comments Basophils (test code = 0.4 See_Comment [Aut omated message] The Basophils) system which ge nerated this result tra nsmitted reference range : <=1.0. The reference r leo was not used to int erpret this result as normal/abnormal . [facility]woodOhyjlgkYSFPWFAPOW0080-38-65 10:35:00 Test Item Value Reference Range Interpretation Comments PB Smear Path Peripheral blood smear shows (test code = PB hypochromic normocytic Smear Path) anemia with anisopoikilocytsosis, no increase in schistocytes, slight polychromasia, a few estella cells, moderate thrombocytopenia. Impression: (1) no evidence of microangiopathic hemolysis, (2) RBC morphology is suggestive of anemia of chronic disease or iron deficiency anemia, and renal disease. CPT: 07958 [facility]woodHboafplETOWZGRVBE7120-60-39 10:35:00 Test Item Value Reference Range Interpretation Comments Hct (test code = Hct) 29.3 36.0-48.0 [facility]woodDhgreciJDVJXFILJN1667-28-08 10:35:00 Test Item Value Reference Range Interpretation Comments Hgb (test code = Hgb) 9.2 12.0-16.0 [facility]woodKorvpitWHFJJWLZOE9194-95-11 10:35:00 Test Item Value Reference Range Interpretation Comments RBC (test code = RBC) 3.54 4.20-5.40 [facility]woodEwrsazlRUOPLDZRUV7138-58-44 10:35:00 Test Item Value Reference Range Interpretation Comments WBC (test code = WBC) 5.3 3.7-10.4 [facility]woodUkldbjsAMFFWTHVEB7137-51-03 10:35:00 Test Item Value Reference Range Interpretation Comments Platelet (test code = Platelet) 87 133-450 [facility]woodAenmwjdUVPYTMZSGB8906-16-56 10:35:00 Test Item Value Reference Range Interpretation Comments MCHC (test code = MCHC) 31.4 32.0-36.0 [facility]woodOhnbkjkODMSEXXPWJ3167-91-72 10:35:00 Test Item Value Reference Range Interpretation Comments RDW (test code = RDW) 17.9 11.5-14.5 [facility]woodAjpcizqXWAKQRTVWA3647-71-69 10:35:00 Test Item Value Reference Range Interpretation Comments MPV (test code = MPV) 10.9 7.4-10.4 [facility] KingwoodMudohkyHYUSRFGRNY4615-55-16 10:35:00 Test Item Value Reference Range Interpretation Comments MCH (test code = MCH) 26.0 pg 27.0-31.0 [facility]woodXzjnplgCCCAJLZZNO8348-47-01 10:35:00 Test Item Value Reference Range Interpretation Comments MCV (test code = MCV) 82.8 80.0-98.0 [facility]YukwxltUVBJWHFGMT6782-95-34 10:35:00 Test Item Value Reference Range Interpretation Comments HIV. (test code = Negative *NA*(07/28/16 HIV.) 4:35 AM) [facility]landsCARDIAC FKTXEUG0288-68-68 10:22:00 Test Item Value Reference Range Interpretation Comments Total CK (test code = Total CK) 190 12-191 [facility]2017-02-06 10:22:00 Test Item Value Reference Range Interpretation Comments Calcium Lvl (test code = Calcium Lvl) 7.8 8.5-10.5 [facility]2017-02-06 10:22:00 Test Item Value Reference Range Interpretation Comments CO2 (test code = CO2) 21 24-32 [facility]2017-02-06 10:22:00 Test Item Value Reference Range Interpretation Comments Sodium Lvl (test code = Sodium Lvl) 140 135-145 [facility]2017-02-06 10:22:00 Test Item Value Reference Range Interpretation Comments Potassium Lvl (test code = Potassium 3.8 3.5-5.1 Lvl) [facility]2017-02-06 10:22:00 Test Item Value Reference Range Interpretation Comments Chloride Lvl (test code = Chloride Lvl) 106 95-109 [facility]2017-02-06 10:22:00 Test Item Value Reference Range Interpretation Comments Bili Total (test code = Bili Total) 0.4 0.2-1.3 [facility]2017-02-06 10:22:00 Test Item Value Reference Range Interpretation Comments Alk Phos (test code = Alk Phos) 74 39-136 [facility]2017-02-06 10:22:00 Test Item Value Reference Range Interpretation Comments eGFR (test code = eGFR) 19 [facility]2017-02-06 10:22:00 Test Item Value Reference Range Interpretation Comments Total Protein (test code = Total 5.2 6.4-8.4 Protein) [facility]2017-02-06 10:22:00 Test Item Value Reference Range Interpretation Comments ALT (test code = ALT) 822 See_Comment [Auto mated message] The system which ge nerated this result transmit rohit reference range : <=65. The reference range was not used to interpr et this result as reji l/abnormal. [facility]2017-02-06 10:22:00 Test Item Value Reference Range Interpretation Comments AST (test code = AST) 205 See_Comment [Auto mated message] The system which ge nerated this result transmit rohit reference range : <=37. The reference range was not used to interpr et this result as reji l/abnormal. [facility]2017-02-06 10:22:00 Test Item Value Reference Range Interpretation Comments Albumin Lvl (test code = Albumin Lvl) 1.8 3.5-5.0 [facility]2017-02-06 10:22:00 Test Item Value Reference Range Interpretation Comments BUN (test code = BUN) 54 7-22 [facility]2017-02-06 10:22:00 Test Item Value Reference Range Interpretation Comments Glucose Lvl (test code = Glucose Lvl) 143 70-99 [facility]2017-02-06 10:22:00 Test Item Value Reference Range Interpretation Comments Creatinine Lvl (test code = Creatinine 3.11 0.50-1.40 Lvl) [facility]2017-02-06 10:22:00 Test Item Value Reference Range Interpretation Comments B/C Ratio (test code = B/C Ratio) 17 6-25 [facility]2017-02-06 10:22:00 Test Item Value Reference Range Interpretation Comments AGAP (test code = AGAP) 16.8 10.0-20.0 [facility]2017-02-06 10:22:00 Test Item Value Reference Range Interpretation Comments Globulin (test code = Globulin) 3.4 2.7-4.2 [facility]2017-02-06 10:22:00 Test Item Value Reference Range Interpretation Comments A/G Ratio (test code = A/G Ratio) 0.5 0.7-1.6 [facility]2017-02-06 10:22:00 Test Item Value Reference Range Interpretation Comments Magnesium Lvl (test code = Magnesium 2.0 1.8-2.4 Lvl) [facility]2017-02-06 10:22:00 Test Item Value Reference Range Interpretation Comments Phosphorus (test code = Phosphorus) 3.7 2.5-4.5 [facility]woodMwsrusfBSSUKPULCY0457-56-90 10:22:00 Test Item Value Reference Range Interpretation Comments RDW (test code = RDW) 17.7 11.5-14.5 [facility]woodOwbjpyyWDPMNEHNAE2912-65-56 10:22:00 Test Item Value Reference Range Interpretation Comments MCHC (test code = MCHC) 32.9 32.0-36.0 [facility]woodEpyctcsBYIYNOQOAF6001-77-61 10:22:00 Test Item Value Reference Range Interpretation Comments Hct (test code = Hct) 25.4 36.0-48.0 [facility]woodRpmrcyePQNQCPFGIW4734-75-51 10:22:00 Test Item Value Reference Range Interpretation Comments MCH (test code = MCH) 26.4 pg 27.0-31.0 [facility]woodUcxmewmQPBIJMKBCR1296-53-80 10:22:00 Test Item Value Reference Range Interpretation Comments MCV (test code = MCV) 80.3 80.0-98.0 [facility] KingwoodVrpjtkfMQILIWFHQT1750-53-92 10:22:00 Test Item Value Reference Range Interpretation Comments MPV (test code = MPV) 11.4 7.4-10.4 [facility]NnnoxydLWCDIWYAEC7188-22-23 10:22:00 Test Item Value Reference Range Interpretation Comments Platelet (test code = Platelet) 74 133-450 [facility]woodWtrwjtsFTNZTGKWBQ5579-13-53 10:22:00 Test Item Value Reference Range Interpretation Comments RBC (test code = RBC) 3.16 4.20-5.40 [facility]woodKmljjykBYLQEVFRHR9259-95-29 10:22:00 Test Item Value Reference Range Interpretation Comments WBC (test code = WBC) 5.3 3.7-10.4 [facility]woodJtnrtytYCOONJLSPX7423-51-56 10:22:00 Test Item Value Reference Range Interpretation Comments Hgb (test code = Hgb) 8.4 12.0-16.0 [facility]woodPjehyzlJZGXOSFRSD6004-40-06 10:22:00 Test Item Value Reference Range Interpretation Comments Monocytes (test code = Monocytes) 14.5 2.0-12.0 [facility]woodBsjzilfKJJRWUTLLF0852-97-10 10:22:00 Test Item Value Reference Range Interpretation Comments Lymphocytes (test code = Lymphocytes) 29.8 20.0-40.0 [facility]woodQrsacncOEDNYIMBJQ6502-24-10 10:22:00 Test Item Value Reference Range Interpretation Comments Eosinophils # (test code 0.1 See_Comment [A utomated message] The = Eosinophils #) system [facility] h generated this result tra nsmitted reference range : <=0.5. The reference r leo was not used to int erpret this result as normal/abnormal . [facility]woodMiyomcvNNXEEXGBIJ3795-64-42 10:22:00 Test Item Value Reference Range Interpretation Comments Monocytes # (test code 0.8 See_Comment [Aut omated message] The = Monocytes #) system which generated this result tra nsmitted reference range : <=0.8. The reference r leo was not used to int erpret this result as normal/abnormal . [facility]woodZcsuwoyFODVCNXNZH2231-43-27 10:22:00 Test Item Value Reference Range Interpretation Comments Segs-Bands # (test code = Segs-Bands #) 2.9 1.5-8.1 [facility]woodNnxlmhvYWMXSPFUKB1106-36-37 10:22:00 Test Item Value Reference Range Interpretation Comments Lymphocytes # (test code = Lymphocytes 1.6 1.0-5.5 #) [facility]woodOpzvqaeDCBABPQPPF5671-27-93 10:22:00 Test Item Value Reference Range Interpretation Comments Basophils (test code = 0.4 See_Comment [Aut omated message] The Basophils) system which ge nerated this result tra nsmitted reference range : <=1.0. The reference r leo was not used to int erpret this result as normal/abnormal . [facility]woodWxpaklaUIDOLODVJA8477-31-20 10:22:00 Test Item Value Reference Range Interpretation Comments Eosinophils (test code = 1.2 See_Comment [A utomated message] The Eosinophils) system which ge nerated this result tra nsmitted reference range : <=4.0. The reference r leo was not used to int erpret this result as normal/abnormal . [facility] CenterFiqszzbMYGKVFMHEZ3378-52-13 10:22:00 Test Item Value Reference Range Interpretation Comments Segs (test code = Segs) 54.1 45.0-75.0 [facility]landsSPE[facility] [id number] 10:22:00 Test Item Value Reference Range Interpretation Comments Hgb A1C (test code = Hgb A1C) 8.9 [facility]landsCARDIAC [id number] 17:40:00 Test Item Value Reference Range Interpretation Comments Total CK (test code = Total CK) 344 12-191 [facility]landsJfvhbzjKOREWVBQCN2449-24-74 17:40:00 Test Item Value Reference Range Interpretation Comments IVETTE (test code = IVETTE) Positive *ABN*(07/26/16 11:40 AM) [facility]IakghdsZTLVPMGLCN1769-27-33 17:40:00 Test Item Value Reference Range Interpretation Comments ELECT EQUIP MAINT ENG Ab (test code = ELECT EQUIP MAINT ENG Ab) no gt [facility] CenterQkbjidhBCWSKKIGTO5421-73-75 17:40:00 Test Item Value Reference Range Interpretation Comments Sm Ab (test code = Sm Ab) no gt [facility] CenterVgqfxemITBCXCXELM9986-37-63 17:40:00 Test Item Value Reference Range Interpretation Comments IVETTE Interp (test code Pattern appears = IVETTE Interp) Nucleolar. [facility] CenterFfydessJJCLTPOGZY1559-86-99 17:40:00 Test Item Value Reference Range Interpretation Comments SS-B (La) Ab (test code = SS-B (La) Ab) no gt [facility] CenterDjewjtlUNPUKIAOBR8529-06-99 17:40:00 Test Item Value Reference Range Interpretation Comments SS-A (Ro) Ab (test code = SS-A (Ro) Ab) no gt [facility] CenterDberkzzOYDGBGQPAB8959-46-82 17:40:00 Test Item Value Reference Range Interpretation Comments DNA Ab (DS) (test Negative (07/26/16 11:40 code = DNA Ab (DS)) AM) [facility] CenterYcbktibXPBSNLXMYT5573-59-12 17:40:00 Test Item Value Reference Range Interpretation Comments IVETTE Titer (test code = 1:40 *ABN*(07/26/16 IVETTE Titer) 11:40 AM) [facility]2017-02-05 17:40:00 Test Item Value Reference Range Interpretation Comments U Sodium (test code = U Sodium) 21 [facility] CenterRlkakqwDIULXFVFUQ1740-82-98 14:00:00 Test Item Value Reference Range Interpretation Comments INR (test code = INR) 1.11 0.85-1.17 [facility] CenterGcdzgqvRMHYGRQYUF9478-22-40 14:00:00 Test Item Value Reference Range Interpretation Comments PT (test code = PT) 14.5 s 12.0-14.7 [facility] CenterAquvjxtSGCNEYEZUM7875-28-53 14:00:00 Test Item Value Reference Range Interpretation Comments Hep A IgM (test code Negative *NA*(07/26/16 = Hep A IgM) 8:00 AM) [facility] CenterXhhiqmtRZHRZXKLHB7277-77-92 14:00:00 Test Item Value Reference Range Interpretation Comments Hep B Core IgM (test Negative *NA*(07/26/16 code = Hep B Core 8:00 AM) IgM) [facility]landsXiujepsXDHVSWPSZN6183-91-03 14:00:00 Test Item Value Reference Range Interpretation Comments Hep C Ab (test code = Negative *NA*(07/26/16 Hep C Ab) 8:00 AM) [facility]landsPvwghdqEXYFTTGUUW1688-56-75 14:00:00 Test Item Value Reference Range Interpretation Comments Hep Bs Ag (test code Negative *NA*(07/26/16 = Hep Bs Ag) 8:00 AM) [facility]2017-02-05 10:42:00 Test Item Value Reference Range Interpretation Comments B/C Ratio (test code = B/C Ratio) 17 6-25 [facility]2017-02-05 10:42:00 Test Item Value Reference Range Interpretation Comments ALT (test code = ALT) 1232 See_Comment [Auto mated message] The system which ge nerated this result transmit rohit reference range : <=65. The reference range was not used to interpr et this result as reji l/abnormal. [facility]landsKingX Studios [id number] 10:42:00 Test Item Value Reference Range Interpretation Comments A/G Ratio (test code = A/G Ratio) 0.5 0.7-1.6 [facility]2017-02-05 10:42:00 Test Item Value Reference Range Interpretation Comments Bili Total (test code = Bili Total) 0.3 0.2-1.3 [facility]2017-02-05 10:42:00 Test Item Value Reference Range Interpretation Comments Alk Phos (test code = Alk Phos) 79 39-136 [facility]2017-02-05 10:42:00 Test Item Value Reference Range Interpretation Comments AST (test code = AST) 586 See_Comment [Auto mated message] The system which ge nerated this result transmit rohit reference range : <=37. The reference range was not used to interpr et this result as reji l/abnormal. [facility]landsKingX Studios [id number] 10:42:00 Test Item Value Reference Range Interpretation Comments Total Protein (test code = Total 5.5 6.4-8.4 Protein) [facility] [id number] 10:42:00 Test Item Value Reference Range Interpretation Comments Globulin (test code = Globulin) 3.7 2.7-4.2 [facility] [id number] 10:42:00 Test Item Value Reference Range Interpretation Comments Albumin Lvl (test code = Albumin Lvl) 1.8 3.5-5.0 [facility] [id number] 10:42:00 Test Item Value Reference Range Interpretation Comments Magnesium Lvl (test code = Magnesium 2.1 1.8-2.4 Lvl) [facility]landsXsgrkczRHJWHQVQAI1903-44-20 10:42:00 Test Item Value Reference Range Interpretation Comments Acanthocyte (test code = Acanthocyte) Slight [facility]woodDpjgiwyLEJEWZQAUV9423-62-17 10:42:00 Test Item Value Reference Range Interpretation Comments Rouleaux (test code = Present *ABN*(07/26/16 Rouleaux) 4:42 AM) [facility]woodAktqrrwCLCLNCQZUC3646-06-28 10:42:00 Test Item Value Reference Range Interpretation Comments Anisocyte (test code = 1+ *ABN*(07/26/16 4:42 Anisocyte) AM) [facility]woodTmmhdwmUQNPBOKZOY6617-57-32 10:42:00 Test Item Value Reference Range Interpretation Comments Basophils # (test code 0.1 See_Comment [Aut omated message] The = Basophils #) system which generated this result tra nsmitted reference range : <=0.2. The reference r leo was not used to int erpret this result as normal/abnormal . [facility]landsMjzvbucPVBPYGWOQB3314-72-51 10:42:00 Test Item Value Reference Range Interpretation Comments Large Plt (test code Moderate *ABN*(07/26/16 = Large Plt) 4:42 AM) [facility]landsUvutrheDSAXHYXTSW2814-30-01 10:42:00 Test Item Value Reference Range Interpretation Comments C4 Complement (test code = C4 42 16-47 Complement) [facility] AND [id number] 16:34:00 Test Item Value Reference Range Interpretation Comments UA Sq Epi (test code = UA Sq Epi) None Seen [facility] AND [id number] 16:34:00 Test Item Value Reference Range Interpretation Comments UA Waxy Cast (test code = UA Waxy Cast) 1 [facility] AND [id number] 16:34:00 Test Item Value Reference Range Interpretation Comments UA Hyal Cast (test 4 See_Comment [Automat ed message] The code = UA Hyal Cast) system which generated this result transmit rohit reference range : <=2. The reference range was not used to interpr et this result as reji l/abnormal. [facility] AND [id number] 16:34:00 Test Item Value Reference Range Interpretation Comments UA Bacteria (test code = UA Occasional /HPF Bacteria) [facility] AND [id number] 16:34:00 Test Item Value Reference Range Interpretation Comments UA Mucus (test code = UA Mucus) Few /LPF [facility] AND [id number] 16:34:00 Test Item Value Reference Range Interpretation Comments UA Amorph Destiny (test code = Occasional /HPF UA Amorph Destiny) [facility] AND [id number] 16:34:00 Test Item Value Reference Range Interpretation Comments UA Leuk Est (test Negative (07/25/16 10:34 code = UA Leuk Est) AM) [facility] AND [id number] 16:34:00 Test Item Value Reference Range Interpretation Comments UA Nitrite (test code Negative (07/25/16 10:34 = UA Nitrite) AM) [facility] AND [id number] 16:34:00 Test Item Value Reference Range Interpretation Comments UA RBC (test code = 2 See_Comment [Automa rohit message] The UA RBC) system which ge nerated this result transmit rohit reference range : <=2. The reference range was not used to interpr et this result as reji l/abnormal. [facility] AND [id number] 16:34:00 Test Item Value Reference Range Interpretation Comments UA WBC (test code = 6 See_Comment [Automa rohit message] The UA WBC) system which ge nerated this result transmit rohit reference range : <=5. The reference range was not used to interpr et this result as reji l/abnormal. [facility] AND [id number] 16:34:00 Test Item Value Reference Range Interpretation Comments UA Urobilinogen (test code = UA 2.0 0.1-1.0 Urobilinogen) [facility] AND [id number] 16:34:00 Test Item Value Reference Range Interpretation Comments UA Ketones (test code = UA Negative mg/dL Ketones) [facility] AND [id number] 16:34:00 Test Item Value Reference Range Interpretation Comments UA Glucose (test code = UA Glucose) 70 mg/dL [facility] AND [id number] 16:34:00 Test Item Value Reference Range Interpretation Comments UA Blood (test code = Negative (07/25/16 10:34 UA Blood) AM) [facility] AND [id number] 16:34:00 Test Item Value Reference Range Interpretation Comments UA Bili (test code = Negative *NA*(07/25/16 UA Bili) 10:34 AM) [facility] AND [id number] 16:34:00 Test Item Value Reference Range Interpretation Comments UA Protein (test code = UA >=300 mg/dL Protein) [facility] AND [id number] 16:34:00 Test Item Value Reference Range Interpretation Comments UA Spec Grav (test code = UA Spec Grav) 1.012 [facility] AND [id number] 16:34:00 Test Item Value Reference Range Interpretation Comments UA pH (test code = UA pH) 5.5 5.0-8.0 [facility] AND [id number] 16:34:00 Test Item Value Reference Range Interpretation Comments UA Turbidity (test code Slight *ABN*(07/25/16 = UA Turbidity) 10:34 AM) [facility] AND [id number] 16:34:00 Test Item Value Reference Range Interpretation Comments UA Color (test code = Dark Yellow *NA*(07/25/16 UA Color) 10:34 AM) [facility] AND [id number] 16:34:00 Test Item Value Reference Range Interpretation Comments UA Gran Cast (test code = UA Gran Cast) 9 [facility] [id number] 16:34:00 Test Item Value Reference Range Interpretation Comments U Sodium (test code = U Sodium) 30 [facility] [id number] 16:34:00 Test Item Value Reference Range Interpretation Comments U Prot/Creat (test code = U Prot/Creat) 3.1 [facility] [id number] 16:34:00 Test Item Value Reference Range Interpretation Comments U Protein (test code = U Protein) 420.9 [facility]annURINE [id number] 16:34:00 Test Item Value Reference Range Interpretation Comments U Creatinine (test code = U 136.00 Creatinine) [facility] [id number] 08:55:00 Test Item Value Reference Range Interpretation Comments Magnesium Lvl (test code = Magnesium 2.0 1.8-2.4 Lvl) [facility]annCHEM [id number] 08:55:00 Test Item Value Reference Range Interpretation Comments Phosphorus (test code = Phosphorus) 5.2 2.5-4.5 [facility]annCARDIAC [id number] 17:29:00 Test Item Value Reference Range Interpretation Comments Troponin-I (test code 0.28 See_Comment [Auto mated message] The = Troponin-I) system which g enerated this result transmit rohit reference range : <=0.40. The reference r leo was not used to interpr et this result as reji l/abnormal. [facility] CenterMy [facility] Friends Daycare and ResortAC [id number] 17:29:00 Test Item Value Reference Range Interpretation Comments Total CK (test code = Total CK) 2616 12-191 [facility]My [facility] Day[facility] and ResortAC [id number] 17:29:00 Test Item Value Reference Range Interpretation Comments Troponin-T (test code 0.144 See_Comment [Auto mated message] The = Troponin-T) system which g enerated this result transmit rohit reference range : <=0.100. The reference r leo was not used to interpr et this result as reji l/abnormal. [facility]My [facility] Day[facility] ResortAC [id number] 17:29:00 Test Item Value Reference Range Interpretation Comments CK MB Index (test 0.2 See_Comment [Automate d message] The code = CK MB Index) system [facility] generated this result transmit rohit reference range : <=2.5. The reference range was not used to interpr et this result as reji l/abnormal. [facility] [employer] [id number] 17:29:00 Test Item Value Reference Range Interpretation Comments CK MB (test code = CK MB) 6.3 0.5-3.6 [facility] ResortAC [id number] 11:20:00 Test Item Value Reference Range Interpretation Comments Troponin-I (test code 0.38 See_Comment [Auto mated message] The = Troponin-I) system which g enerated this result transmit rohit reference range : <=0.40. The reference r leo was not used to interpr et this result as reji l/abnormal. [facility] [employer]2017-02-03 11:20:00 Test Item Value Reference Range Interpretation Comments Troponin-T (test code 0.173 See_Comment [Auto mated message] The = Troponin-T) system which g enerated this result transmit rohit reference range : <=0.100. The reference r leo was not used to interpr et this result as reji l/abnormal. [facility] [employer]2017-02-03 11:20:00 Test Item Value Reference Range Interpretation Comments CK MB Index (test 0.2 See_Comment [Automate d message] The code = CK MB Index) system [facility] generated this result transmit rohit reference range : <=2.5. The reference range was not used to interpr et this result as reji l/abnormal. [facility] [employer]2017-02-03 11:20:00 Test Item Value Reference Range Interpretation Comments CK MB (test code = CK MB) 5.6 0.5-3.6 [facility] [employer]2017-02-03 11:20:00 Test Item Value Reference Range Interpretation Comments Phosphorus (test code = Phosphorus) 5.5 2.5-4.5 [facility] [employer]2017-02-03 06:18:00 Test Item Value Reference Range Interpretation Comments BNP (test code = BNP) 701 [facility] [employer]2017-02-03 04:59:27 Test Item Value Reference Range Interpretation Comments Troponin-I (test code 0.57 See_Comment [Auto mated message] The = Troponin-I) system which g enerated this result transmit rohit reference range : <=0.40. The reference r leo was not used to interpr et this result as reji l/abnormal. [employer]2016-12-26 10:22:00 Test Item Value Reference Range Interpretation Comments BNP (test code = BNP) 526 [facility] [employer]2016-12-26 10:22:00 Test Item Value Reference Range Interpretation Comments Magnesium Lvl (test code = Magnesium 2.1 1.8-2.4 Lvl) [facility]2016-12-26 10:22:00 Test Item Value Reference Range Interpretation Comments Glucose Lvl (test code = Glucose Lvl) 117 70-99 [facility]2016-12-26 10:22:00 Test Item Value Reference Range Interpretation Comments BUN (test code = BUN) 41 7-22 [facility]2016-12-26 10:22:00 Test Item Value Reference Range Interpretation Comments Creatinine Lvl (test code = Creatinine 2.00 0.50-1.40 Lvl) [facility]2016-12-26 10:22:00 Test Item Value Reference Range Interpretation Comments Calcium Lvl (test code = Calcium Lvl) 9.0 8.5-10.5 [facility]2016-12-26 10:22:00 Test Item Value Reference Range Interpretation Comments Chloride Lvl (test code = Chloride Lvl) 102 95-109 [facility]2016-12-26 10:22:00 Test Item Value Reference Range Interpretation Comments CO2 (test code = CO2) 33 24-32 [facility]2016-12-26 10:22:00 Test Item Value Reference Range Interpretation Comments Sodium Lvl (test code = Sodium Lvl) 144 135-145 [facility]2016-12-26 10:22:00 Test Item Value Reference Range Interpretation Comments Potassium Lvl (test code = Potassium 4.0 3.5-5.1 Lvl) [facility]2016-12-26 10:22:00 Test Item Value Reference Range Interpretation Comments eGFR (test code = eGFR) 32 [facility]2016-12-26 10:22:00 Test Item Value Reference Range Interpretation Comments AGAP (test code = AGAP) 13.0 10.0-20.0 [facility]2016-12-26 10:22:00 Test Item Value Reference Range Interpretation Comments Phosphorus (test code = Phosphorus) 4.6 2.5-4.5 [facility]wo[id number] 10:22:00 Test Item Value Reference Range Interpretation Comments RBC (test code = RBC) 3.68 4.20-5.40 [facility]woodPldohmkTEWDHDGCXW0856-19-95 10:22:00 Test Item Value Reference Range Interpretation Comments Hgb (test code = Hgb) 9.9 12.0-16.0 [facility]woodIbetsebPUQAMYIMPQ2229-14-48 10:22:00 Test Item Value Reference Range Interpretation Comments MCH (test code = MCH) 26.8 pg 27.0-31.0 [facility]woodCdqaptzWRXGFJYOJQ2981-07-20 10:22:00 Test Item Value Reference Range Interpretation Comments MCHC (test code = MCHC) 34.2 32.0-36.0 [facility]woodKqzpoixZREYHUUQHD2683-65-17 10:22:00 Test Item Value Reference Range Interpretation Comments MCV (test code = MCV) 78.3 80.0-98.0 [facility]woodEhnjaafAANWIPYNRK0230-07-53 10:22:00 Test Item Value Reference Range Interpretation Comments Hct (test code = Hct) 28.8 36.0-48.0 [facility]woodJjqzrtpTLAMJHNWOE1409-81-01 10:22:00 Test Item Value Reference Range Interpretation Comments Platelet (test code = Platelet) 191 133-450 [facility]woodKxoymxeDADOZYSHCW4476-75-67 10:22:00 Test Item Value Reference Range Interpretation Comments MPV (test code = MPV) 9.5 7.4-10.4 [facility]woodOqujctnEOJTKHTOJT8152-54-92 10:22:00 Test Item Value Reference Range Interpretation Comments RDW (test code = RDW) 15.3 11.5-14.5 [facility]woodPlpjmowIOHAZMXJPW6727-08-68 10:22:00 Test Item Value Reference Range Interpretation Comments WBC (test code = WBC) 5.6 3.7-10.4 [facility]woodSddtfrxAQVVZQEYYF8100-63-37 10:22:00 Test Item Value Reference Range Interpretation Comments Eosinophils # (test code 0.5 See_Comment [A utomated message] The = Eosinophils #) system whic h generated this result tra nsmitted reference range : <=0.5. The reference r leo was not used to int erpret this result as normal/abnormal . [facility]woodTzzsqvqDTZLJQHWOM8289-73-44 10:22:00 Test Item Value Reference Range Interpretation Comments Microcyte (test code = 1+ *ABN*(06/15/16 Microcyte) 4:22 AM) [facility]woodWgakwliSCUKRJCQIN0406-27-60 10:22:00 Test Item Value Reference Range Interpretation Comments Basophils # (test code 0.1 See_Comment [Aut omated message] The = Basophils #) system which generated this result tra nsmitted reference range : <=0.2. The reference r leo was not used to int erpret this result as normal/abnormal . [facility]woodZlpulypXLQBVODJNF0099-83-93 10:22:00 Test Item Value Reference Range Interpretation Comments Lymphocytes (test code = Lymphocytes) 33.5 20.0-40.0 [facility]woodIpqdbsjGIEUWAMNOR1660-40-77 10:22:00 Test Item Value Reference Range Interpretation Comments Segs (test code = Segs) 47.6 45.0-75.0 [facility]woodSqxxhogJSXVCIFQYI7072-76-79 10:22:00 Test Item Value Reference Range Interpretation Comments Monocytes (test code = Monocytes) 8.4 2.0-12.0 [facility]woodNzhbpsbTVQWIUINKW5696-16-92 10:22:00 Test Item Value Reference Range Interpretation Comments Eosinophils (test code = 9.4 See_Comment [A utomated message] The Eosinophils) system which ge nerated this result tra nsmitted reference range : <=4.0. The reference r leo was not used to int erpret this result as normal/abnormal . [facility]woodAagitxyHBZHJFJYGN4928-83-07 10:22:00 Test Item Value Reference Range Interpretation Comments Segs-Bands # (test code = Segs-Bands #) 2.6 1.5-8.1 [facility]woodHufbdtxTYNHWQTLWX1013-75-42 10:22:00 Test Item Value Reference Range Interpretation Comments Lymphocytes # (test code = Lymphocytes 1.9 1.0-5.5 #) [facility]woodFphhznsWVQBATPBAB2233-05-00 10:22:00 Test Item Value Reference Range Interpretation Comments Basophils (test code = 1.1 See_Comment [Aut omated message] The Basophils) system which ge nerated this result tra nsmitted reference range : <=1.0. The reference r leo was not used to int erpret this result as normal/abnormal . [facility] KingwoodZeprpklQKWWKDZQAI7949-63-82 10:22:00 Test Item Value Reference Range Interpretation Comments Monocytes # (test code 0.5 See_Comment [Aut omated message] The = Monocytes #) system which generated this result tra nsmitted reference range : <=0.8. The reference r leo was not used to int erpret this result as normal/abnormal . [facility]2016-12-25 11:03:00 Test Item Value Reference Range Interpretation Comments Phosphorus (test code = Phosphorus) 4.8 2.5-4.5 [facility]2016-12-25 11:03:00 Test Item Value Reference Range Interpretation Comments Magnesium Lvl (test code = Magnesium 2.0 1.8-2.4 Lvl) [facility]2016-12-25 11:03:00 Test Item Value Reference Range Interpretation Comments eGFR (test code = eGFR) 32 [facility]2016-12-25 11:03:00 Test Item Value Reference Range Interpretation Comments Chloride Lvl (test code = Chloride Lvl) 101 95-109 [facility]2016-12-25 11:03:00 Test Item Value Reference Range Interpretation Comments Potassium Lvl (test code = Potassium 4.4 3.5-5.1 Lvl) [facility]2016-12-25 11:03:00 Test Item Value Reference Range Interpretation Comments BUN (test code = BUN) 37 7-22 [facility]2016-12-25 11:03:00 Test Item Value Reference Range Interpretation Comments Glucose Lvl (test code = Glucose Lvl) 119 70-99 [facility]2016-12-25 11:03:00 Test Item Value Reference Range Interpretation Comments Creatinine Lvl (test code = Creatinine 2.00 0.50-1.40 Lvl) [facility]2016-12-25 11:03:00 Test Item Value Reference Range Interpretation Comments Sodium Lvl (test code = Sodium Lvl) 142 135-145 [facility]2016-12-25 11:03:00 Test Item Value Reference Range Interpretation Comments Calcium Lvl (test code = Calcium Lvl) 8.7 8.5-10.5 [facility]2016-12-25 11:03:00 Test Item Value Reference Range Interpretation Comments CO2 (test code = CO2) 32 24-32 [facility]2016-12-25 11:03:00 Test Item Value Reference Range Interpretation Comments AGAP (test code = AGAP) 13.4 10.0-20.0 [facility]landsGacdshuVNXISULOGO2026-32-04 11:03:00 Test Item Value Reference Range Interpretation Comments Eosinophils (test code = 10.3 See_Comment [A utomated message] The Eosinophils) system which ge nerated this result tra nsmitted reference range : <=4.0. The reference r leo was not used to int erpret this result as normal/abnormal . [facility]CdipxwmHDBJINDREJ6214-59-44 11:03:00 Test Item Value Reference Range Interpretation Comments Basophils # (test code 0.1 See_Comment [Aut omated message] The = Basophils #) system which generated this result tra nsmitted reference range : <=0.2. The reference r leo was not used to int erpret this result as normal/abnormal . [facility]woodFvpzavfABKOIIABPU4866-97-66 11:03:00 Test Item Value Reference Range Interpretation Comments Eosinophils # (test code 0.5 See_Comment [A utomated message] The = Eosinophils #) system whic h generated this result tra nsmitted reference range : <=0.5. The reference r leo was not used to int erpret this result as normal/abnormal . [facility]woodRguvkhmKGECMQEXFB1002-56-22 11:03:00 Test Item Value Reference Range Interpretation Comments Monocytes # (test code 0.5 See_Comment [Aut omated message] The = Monocytes #) system which generated this result tra nsmitted reference range : <=0.8. The reference r leo was not used to int erpret this result as normal/abnormal . [facility]woodMaaminrLWNSIWHHTH1784-33-72 11:03:00 Test Item Value Reference Range Interpretation Comments Segs-Bands # (test code = Segs-Bands #) 2.1 1.5-8.1 [facility]woodXdzamddHXDOBFOTFT3712-98-29 11:03:00 Test Item Value Reference Range Interpretation Comments Basophils (test code = 1.2 See_Comment [Aut omated message] The Basophils) system which ge nerated this result tra nsmitted reference range : <=1.0. The reference r leo was not used to int erpret this result as normal/abnormal . [facility]woodZtxfizxHJPKQHEZZO4588-10-88 11:03:00 Test Item Value Reference Range Interpretation Comments Lymphocytes # (test code = Lymphocytes 1.9 1.0-5.5 #) [facility]woodAtxbhthHOUBHTWGIT3998-28-82 11:03:00 Test Item Value Reference Range Interpretation Comments Segs (test code = Segs) 42.5 45.0-75.0 [facility]woodAkeiypfTTQSLSIFQH0185-64-43 11:03:00 Test Item Value Reference Range Interpretation Comments Lymphocytes (test code = Lymphocytes) 37.0 20.0-40.0 [facility]woodPmudwzgMMJDYTUTFS1646-17-87 11:03:00 Test Item Value Reference Range Interpretation Comments Monocytes (test code = Monocytes) 9.0 2.0-12.0 [facility]woodKkcxjoiSIDIPPZQZB5883-05-47 11:03:00 Test Item Value Reference Range Interpretation Comments MPV (test code = MPV) 9.8 7.4-10.4 [facility]woodEagggarMDBPRJKXFH8107-34-15 11:03:00 Test Item Value Reference Range Interpretation Comments WBC (test code = WBC) 5.0 3.7-10.4 [facility]woodCvpubjjLCXXMFLDCH5776-04-58 11:03:00 Test Item Value Reference Range Interpretation Comments RBC (test code = RBC) 3.57 4.20-5.40 [facility]woodHmtbbmkURDWSZBXCC4356-60-99 11:03:00 Test Item Value Reference Range Interpretation Comments Hgb (test code = Hgb) 9.4 12.0-16.0 [facility]woodFnyqugsZHSEGMSKEZ0080-62-64 11:03:00 Test Item Value Reference Range Interpretation Comments Hct (test code = Hct) 28.5 36.0-48.0 [facility]woodCxvugzcHHNUAEYYWD9287-87-91 11:03:00 Test Item Value Reference Range Interpretation Comments Platelet (test code = Platelet) 183 133-450 [facility]woodGxqtmdiVSZVDNTFZW9263-50-18 11:03:00 Test Item Value Reference Range Interpretation Comments MCV (test code = MCV) 79.9 80.0-98.0 [facility]woodJgcyzkkGRXSGDAUJZ0127-12-70 11:03:00 Test Item Value Reference Range Interpretation Comments MCH (test code = MCH) 26.3 pg 27.0-31.0 [facility]woodOqoeknaYGXSBITJTD7568-17-49 11:03:00 Test Item Value Reference Range Interpretation Comments MCHC (test code = MCHC) 33.0 32.0-36.0 [facility]woodSrgoxjmXUBEDSMSMO2732-67-79 11:03:00 Test Item Value Reference Range Interpretation Comments RDW (test code = RDW) 15.9 11.5-14.5 [facility]2016-12-24 10:26:00 Test Item Value Reference Range Interpretation Comments U Prot/Creat (test code = U Prot/Creat) 6.9 [facility]2016-12-24 10:26:00 Test Item Value Reference Range Interpretation Comments U Creatinine (test code = U Creatinine) 19.30 [facility]2016-12-24 10:26:00 Test Item Value Reference Range Interpretation Comments U Protein (test code = U Protein) 133.1 [facility]woodAvavmqkARRNYHDWHD2805-13-28 09:20:00 Test Item Value Reference Range Interpretation Comments MPV (test code = MPV) 9.7 7.4-10.4 [facility] KingwoodLlaonurXMIEIIIQPV2453-57-96 09:20:00 Test Item Value Reference Range Interpretation Comments Platelet (test code = Platelet) 184 133-450 [facility] KingwoodZvwaockMAWAWNMUJQ9109-44-32 09:20:00 Test Item Value Reference Range Interpretation Comments RDW (test code = RDW) 15.9 11.5-14.5 [facility]woodXmlxxfmRAQVKICYAU4707-64-70 09:20:00 Test Item Value Reference Range Interpretation Comments MCV (test code = MCV) 79.3 80.0-98.0 [facility] KingwoodZrrbwcnNXKJAHWVCX4857-61-01 09:20:00 Test Item Value Reference Range Interpretation Comments MCHC (test code = MCHC) 33.0 32.0-36.0 [facility]woodEjgxqrxVRMNEFIWPB6670-56-25 09:20:00 Test Item Value Reference Range Interpretation Comments MCH (test code = MCH) 26.2 pg 27.0-31.0 [facility]woodBwoxksqGOSNLAOMSG4827-87-49 09:20:00 Test Item Value Reference Range Interpretation Comments Hct (test code = Hct) 29.4 36.0-48.0 [facility]woodHqnffowGVJPFHZZVE3508-91-40 09:20:00 Test Item Value Reference Range Interpretation Comments Hgb (test code = Hgb) 9.7 12.0-16.0 [facility]woodVbjdfnkGYFCPBFVNL2442-67-24 09:20:00 Test Item Value Reference Range Interpretation Comments RBC (test code = RBC) 3.70 4.20-5.40 [facility]woodBtfeiyfJHUGWUPHQB9141-91-32 09:20:00 Test Item Value Reference Range Interpretation Comments WBC (test code = WBC) 5.7 3.7-10.4 [facility] KingwoodMnegketFJCTQTOKKY1244-89-30 09:20:00 Test Item Value Reference Range Interpretation Comments Basophils # (test code 0.1 See_Comment [Aut omated message] The = Basophils #) system which generated this result tra nsmitted reference range : <=0.2. The reference r leo was not used to int erpret this result as normal/abnormal . [facility] KingwoodWmsawvsELDKVKLRXE3085-23-77 09:20:00 Test Item Value Reference Range Interpretation Comments Lymphocytes # (test code = Lymphocytes 2.2 1.0-5.5 #) [facility]woodKrzkujxQURJVQVPGG8258-51-96 09:20:00 Test Item Value Reference Range Interpretation Comments Eosinophils # (test code 0.5 See_Comment [A utomated message] The = Eosinophils #) system wh h generated this result tra nsmitted reference range : <=0.5. The reference r leo was not used to int erpret this result as normal/abnormal . [facility]woodTlrkmjiPDCDXFFKOE5081-82-57 09:20:00 Test Item Value Reference Range Interpretation Comments Monocytes # (test code 0.5 See_Comment [Aut omated message] The = Monocytes #) system which generated this result tra nsmitted reference range : <=0.8. The reference r leo was not used to int erpret this result as normal/abnormal . [facility]woodBgvrswtHLWVVMJAGA6795-59-53 09:20:00 Test Item Value Reference Range Interpretation Comments Basophils (test code = 1.1 See_Comment [Aut omated message] The Basophils) system which ge nerated this result tra nsmitted reference range : <=1.0. The reference r leo was not used to int erpret this result as normal/abnormal . [facility]woodCkwxliuFVYYLKNNJR8902-16-39 09:20:00 Test Item Value Reference Range Interpretation Comments Segs-Bands # (test code = Segs-Bands #) 2.3 1.5-8.1 [facility]woodGwtydxvWEQNEZVEAE5442-05-20 09:20:00 Test Item Value Reference Range Interpretation Comments Eosinophils (test code = 9.5 See_Comment [A utomated message] The Eosinophils) system which ge nerated this result tra nsmitted reference range : <=4.0. The reference r leo was not used to int erpret this result as normal/abnormal . [facility]woodLawmckqDHQRDNFKTB4823-61-45 09:20:00 Test Item Value Reference Range Interpretation Comments Monocytes (test code = Monocytes) 9.0 2.0-12.0 [facility]woodDshmqapTLSHYEIFAV7501-54-76 09:20:00 Test Item Value Reference Range Interpretation Comments Lymphocytes (test code = Lymphocytes) 38.9 20.0-40.0 [facility]woodXweqxvuQNTQACFLRO7845-28-27 09:20:00 Test Item Value Reference Range Interpretation Comments Segs (test code = Segs) 41.5 45.0-75.0 [facility]2016-12-24 06:34:00 Test Item Value Reference Range Interpretation Comments Magnesium Lvl (test code = Magnesium 1.7 1.8-2.4 Lvl) [facility]2016-12-24 06:34:00 Test Item Value Reference Range Interpretation Comments Phosphorus (test code = Phosphorus) 4.2 2.5-4.5 [facility]EusrspiQTWAECVZXWGW7103-10-53 06:34:00 Test Item Value Reference Range Interpretation Comments AGAP (test code = AGAP) 14.3 10.0-20.0 [facility] HospitalScufgddENNUATWRNDUK3508-29-91 06:34:00 Test Item Value Reference Range Interpretation Comments eGFR (test code = eGFR) 41 [facility] HospitalIvkwdkjJJMZJDDAGZBE9624-78-01 06:34:00 Test Item Value Reference Range Interpretation Comments Chloride Lvl (test code = Chloride Lvl) 103 95-109 [facility] HospitalOdwixduWXKFDAQJVCDV1764-43-56 06:34:00 Test Item Value Reference Range Interpretation Comments Calcium Lvl (test code = Calcium Lvl) 8.5 8.5-10.5 [facility] HospitalXbghjtkXIEQJWFLOQLO2923-37-46 06:34:00 Test Item Value Reference Range Interpretation Comments CO2 (test code = CO2) 32 24-32 [facility] HospitalLlpzhbrYHSSSGANQDLC0799-28-46 06:34:00 Test Item Value Reference Range Interpretation Comments Glucose Lvl (test code = Glucose Lvl) 173 70-99 [facility] HospitalLfdjutvDQOGXWEHMEHR1472-13-44 06:34:00 Test Item Value Reference Range Interpretation Comments BUN (test code = BUN) 37 7-22 [facility] HospitalVmdddkzWATDADGCZPNP3686-11-67 06:34:00 Test Item Value Reference Range Interpretation Comments Creatinine Lvl (test code = Creatinine 1.63 0.50-1.40 Lvl) [facility] HospitalNxydmdvARPKSYLMHKBD2491-04-17 06:34:00 Test Item Value Reference Range Interpretation Comments Potassium Lvl (test code = Potassium 4.3 3.5-5.1 Lvl) [facility] HospitalNyfygoiFYPSPPRNWRSL4501-64-17 06:34:00 Test Item Value Reference Range Interpretation Comments Sodium Lvl (test code = Sodium Lvl) 145 135-145 [facility]landsCHEM IIJEY4041-07-40 16:21:00 Test Item Value Reference Range Interpretation Comments Ammonia (test code = Ammonia) 48.0 [facility]landsOmuxtdfCYOAAMAEOE3372-36-10 14:56:00 Test Item Value Reference Range Interpretation Comments IVETTE Interp (test code Pattern appears = IVETTE Interp) Nucleolar. [facility]puqphhTEJHFKNIAT3139-49-98 14:56:00 Test Item Value Reference Range Interpretation Comments IVETTE Titer (test code = 1:40 *ABN*(06/11/16 IVETTE Titer) 8:56 AM) [facility]LfylpyeYSLGKDGWCP9586-69-25 14:56:00 Test Item Value Reference Range Interpretation Comments Hep Bs Ag (test code Negative *NA*(06/11/16 = Hep Bs Ag) 8:56 AM) [facility]BtunfgzQRQCOWWZPZ7617-54-29 14:56:00 Test Item Value Reference Range Interpretation Comments Hep C Ab (test code = Negative *NA*(06/11/16 Hep C Ab) 8:56 AM) [facility]landsUjdbiunPNMQPVOCVC1232-93-58 14:56:00 Test Item Value Reference Range Interpretation Comments Hep B Core IgM (test Negative *NA*(06/11/16 code = Hep B Core 8:56 AM) IgM) [facility]BwtdvkzYWPRZZKAUY5788-65-59 14:56:00 Test Item Value Reference Range Interpretation Comments Hep A IgM (test code Negative *NA*(06/11/16 = Hep A IgM) 8:56 AM) [facility]XfzwvflYGEMFXIPDB1489-72-35 14:56:00 Test Item Value Reference Range Interpretation Comments HIV Ag/Ab 4th Gen Negative *NA*(06/11/16 (test code = HIV 8:56 AM) Ag/Ab 4th Gen) [facility]landsGclcsloIWLMZCSBWV2328-95-98 14:56:00 Test Item Value Reference Range Interpretation Comments IVETTE (test code = IVETTE) Positive *ABN*(06/11/16 8:56 AM) [facility]2016-12-22 10:42:00 Test Item Value Reference Range Interpretation Comments Bili Total (test code = Bili Total) 0.1 0.2-1.3 [facility]2016-12-22 10:42:00 Test Item Value Reference Range Interpretation Comments Total Protein (test code = Total 5.2 6.4-8.4 Protein) [facility]2016-12-22 10:42:00 Test Item Value Reference Range Interpretation Comments Albumin Lvl (test code = Albumin Lvl) 1.6 3.5-5.0 [facility]2016-12-22 10:42:00 Test Item Value Reference Range Interpretation Comments B/C Ratio (test code = B/C Ratio) 20 6-25 [facility]2016-12-22 10:42:00 Test Item Value Reference Range Interpretation Comments Globulin (test code = Globulin) 3.6 2.7-4.2 [facility]2016-12-22 10:42:00 Test Item Value Reference Range Interpretation Comments A/G Ratio (test code = A/G Ratio) 0.4 0.7-1.6 [facility]2016-12-22 10:42:00 Test Item Value Reference Range Interpretation Comments Alk Phos (test code = Alk Phos) 74 39-136 [facility]2016-12-22 10:42:00 Test Item Value Reference Range Interpretation Comments ALT (test code = ALT) 14 See_Comment [Auto mated message] The system which ge nerated this result transmit rohit reference range : <=65. The reference range was not used to interpr et this result as reji l/abnormal. [facility]2016-12-22 10:42:00 Test Item Value Reference Range Interpretation Comments AST (test code = AST) 13 See_Comment [Auto mated message] The system which ge nerated this result transmit rohit reference range : <=37. The reference range was not used to interpr et this result as reji l/abnormal. [facility]landsMxclfzeMSJQVFXWNT2177-57-99 10:42:00 Test Item Value Reference Range Interpretation Comments INR (test code = INR) 1.06 0.85-1.17 [facility]landsMcqciqqRGKDITCBMY7742-65-16 10:42:00 Test Item Value Reference Range Interpretation Comments PT (test code = PT) 14.0 s 12.0-14.7 [facility]YkmsjxzSKXQRINXDF5948-01-03 10:42:00 Test Item Value Reference Range Interpretation Comments PTT (test code = PTT) 36.4 s 22.9-35.8 [facility] WHCRYNNNF1856-22-99 10:42:00 Test Item Value Reference Range Interpretation Comments Hgb A1C (test code = Hgb A1C) 10.5 [facility] ResortAC VCAWUBF4830-91-00 02:08:00 Test Item Value Reference Range Interpretation Comments CK MB Index (test 1.8 See_Comment [Automate d message] The code = CK MB Index) system w [facility] generated this result transmit rohit reference range : <=2.5. The reference range was not used to interpr et this result as reji l/abnormal. [facility] CenterBoxFox XOSCIRF1546-13-30 02:08:00 Test Item Value Reference Range Interpretation Comments CK MB (test code = CK MB) 2.9 0.5-3.6 [facility] ResortAC VMHNUMV4781-65-81 02:08:00 Test Item Value Reference Range Interpretation Comments Troponin-T (test code 0.061 See_Comment [Auto mated message] The = Troponin-T) system which g enerated this result transmit rohit reference range : <=0.100. The reference r leo was not used to interpr et this result as reji l/abnormal. [facility]Box[facility] GAWVFPL9847-73-09 02:08:00 Test Item Value Reference Range Interpretation Comments Total CK (test code = Total CK) 159 12-191 [facility] YKYGGAM8277-32-66 02:08:00 Test Item Value Reference Range Interpretation Comments Troponin-I (test code no gt See_Comment [Auto mated message] The = Troponin-I) system which g enerated this result transmit rohit reference range : <=0.40. The reference r leo was not used to interpr et this result as reji l/abnormal. [place]806-12-22 02:08:00 Test Item Value Reference Range Interpretation Comments Bili Total (test code = Bili Total) 0.2 0.2-1.3 [place] 112806-12-22 02:08:00 Test Item Value Reference Range Interpretation Comments Bili Direct (test code 0.1 See_Comment [Aut omated message] The = Bili Direct) system which generated this result tra nsmitted reference range : <=0.3. The reference r leo was not used to int erpret this result as reji l/abnormal. [place] 112806-12-22 02:08:00 Test Item Value Reference Range Interpretation Comments Bili Indirect (test 0.1 See_Comment [Automa rohit message] The code = Bili Indirect) system which generated this result tra nsmitted reference range : <=1.0. The reference r leo was not used to int erpret this result as normal/abnormal . [place] 112806-12-22 02:08:00 Test Item Value Reference Range Interpretation Comments Total Protein (test code = Total 5.7 6.4-8.4 Protein) [place] 112806-12-22 02:08:00 Test Item Value Reference Range Interpretation Comments A/G Ratio (test code = A/G Ratio) 0.5 0.7-1.6 [place] 112806-12-22 02:08:00 Test Item Value Reference Range Interpretation Comments Albumin Lvl (test code = Albumin Lvl) 1.8 3.5-5.0 [place] 112806-12-22 02:08:00 Test Item Value Reference Range Interpretation Comments Globulin (test code = Globulin) 3.9 2.7-4.2 [place] 112806-12-22 02:08:00 Test Item Value Reference Range Interpretation Comments Alk Phos (test code = Alk Phos) 99 39-136 [place] 112806-12-22 02:08:00 Test Item Value Reference Range Interpretation Comments AST (test code = AST) 21 See_Comment [Auto mated message] The system which ge nerated this result transmit rohit reference range : <=37. The reference range was not used to interpr et this result as reji l/abnormal. [place] 112806-12-22 02:08:00 Test Item Value Reference Range Interpretation Comments ALT (test code = ALT) 17 See_Comment [Auto mated message] The system which ge nerated this result transmit rohit reference range : <=65. The reference range was not used to interpr et this result as reji l/abnormal. [facility] [id number] 02:08:00 Test Item Value Reference Range Interpretation Comments UDS Note (test code = See Note *NA*(06/10/16 UDS Note) 8:08 PM) [facility] [id number] 02:08:00 Test Item Value Reference Range Interpretation Comments U Propoxyph Scr (test Negative *NA*(06/10/16 code = U Propoxyph Scr) 8:08 PM) [facility] DUFVCG2906-36-02 02:08:00 Test Item Value Reference Range Interpretation Comments U Opiate Scr (test Negative *NA*(06/10/16 code = U Opiate Scr) 8:08 PM) [facility] [id number] 02:08:00 Test Item Value Reference Range Interpretation Comments U Methadone Scr (test Negative *NA*(06/10/16 code = U Methadone Scr) 8:08 PM) [facility] [id number] 02:08:00 Test Item Value Reference Range Interpretation Comments U Phencyc Scr (test Negative *NA*(06/10/16 code = U Phencyc Scr) 8:08 PM) [facility] [id number] 02:08:00 Test Item Value Reference Range Interpretation Comments U Cannab Scr (test Negative *NA*(06/10/16 code = U Cannab Scr) 8:08 PM) [facility] [id number] 02:08:00 Test Item Value Reference Range Interpretation Comments U Amph Scr (test code Negative *NA*(06/10/16 = U Amph Scr) 8:08 PM) [facility] [id number] 02:08:00 Test Item Value Reference Range Interpretation Comments U Kelly Scr (test code Negative *NA*(06/10/16 = U Kelly Scr) 8:08 PM) [facility] [id number] 02:08:00 Test Item Value Reference Range Interpretation Comments U Benzodia Scr (test Negative *NA*(06/10/16 code = U Benzodia Scr) 8:08 PM) [facility] [id number] 02:08:00 Test Item Value Reference Range Interpretation Comments U Cocaine Scr (test Negative *NA*(06/10/16 code = U Cocaine Scr) 8:08 PM) [facility] HvptjpdMWZVAR2810-30-18 02:08:00 Test Item Value Reference Range Interpretation Comments LDL (Calculated) (test code = LDL 75 (Calculated)) [facility] HrnvugdOGAXJZ3510-33-49 02:08:00 Test Item Value Reference Range Interpretation Comments VLDL (test code = VLDL) 27 [facility] UzhixjdKYXRKO8399-84-83 02:08:00 Test Item Value Reference Range Interpretation Comments Chol (test code = Chol) 133 [facility] SxgqrknJIYCCF0565-64-41 02:08:00 Test Item Value Reference Range Interpretation Comments Trig (test code = Trig) 133 [facility] TkenqoxJQHVSF5575-24-83 02:08:00 Test Item Value Reference Range Interpretation Comments CHD Risk (test code = CHD Risk) 4.29 3.90-5.80 [facility] MsrvnbvZWNYOC0807-68-70 02:08:00 Test Item Value Reference Range Interpretation Comments HDL (test code = HDL) 31 [facility]annTHE [facility] AND [id number] 02:08:00 Test Item Value Reference Range Interpretation Comments UA Urobilinogen (test code = UA <=1.0 mg/dL 0.1-1.0 Urobilinogen) [facility] AND [id number] 02:08:00 Test Item Value Reference Range Interpretation Comments UA Ketones (test code = UA Negative mg/dL Ketones) [facility] CenterannURINE AND [id number] 02:08:00 Test Item Value Reference Range Interpretation Comments UA Glucose (test code = UA Glucose) 300 mg/dL [facility]annTHE [facility] AND [id number] 02:08:00 Test Item Value Reference Range Interpretation Comments UA Protein (test code = UA >=300 mg/dL Protein) [facility] [id number] 02:08:00 Test Item Value Reference Range Interpretation Comments UA pH (test code = UA pH) 6.0 5.0-8.0 [facility] [id number] 02:08:00 Test Item Value Reference Range Interpretation Comments UA Nitrite (test code Negative (06/10/16 8:08 = UA Nitrite) PM) [facility] AND [id number] 02:08:00 Test Item Value Reference Range Interpretation Comments UA Blood (test code = Trace *ABN*(06/10/16 UA Blood) 8:08 PM) [facility] AND [id number] 02:08:00 Test Item Value Reference Range Interpretation Comments UA Bili (test code = Negative *NA*(06/10/16 UA Bili) 8:08 PM) [facility] AND [id number] 02:08:00 Test Item Value Reference Range Interpretation Comments UA Mucus (test code = UA Mucus) Few /LPF [facility] AND [id number] 02:08:00 Test Item Value Reference Range Interpretation Comments UA RBC (test code = 4 See_Comment [Automa rohit message] The UA RBC) system which ge nerated this result transmit rohit reference range : <=2. The reference range was not used to interpr et this result as reji l/abnormal. [facility] AND [id number] 02:08:00 Test Item Value Reference Range Interpretation Comments UA Sq Epi (test code = UA Sq Epi) Few /LPF [facility] AND [id number] 02:08:00 Test Item Value Reference Range Interpretation Comments UA WBC (test code = 5 See_Comment [Automa rohit message] The UA WBC) system which ge nerated this result transmit rohit reference range : <=5. The reference range was not used to interpr et this result as reji l/abnormal. [facility] AND [id number] 02:08:00 Test Item Value Reference Range Interpretation Comments UA Leuk Est (test code Small *ABN*(06/10/16 = UA Leuk Est) 8:08 PM) [facility] AND [id number] 02:08:00 Test Item Value Reference Range Interpretation Comments UA Hyal Cast (test 1 See_Comment [Automat ed message] The code = UA Hyal Cast) system which generated this result transmit rohit reference range : <=2. The reference range was not used to interpr et this result as reji l/abnormal. [facility] AND [id number] 02:08:00 Test Item Value Reference Range Interpretation Comments UA Spec Grav (test code = UA Spec Grav) 1.009 [facility] AND [id number] 02:08:00 Test Item Value Reference Range Interpretation Comments UA Color (test code = Yellow *NA*(06/10/16 UA Color) 8:08 PM) [facility] AND [id number] 02:08:00 Test Item Value Reference Range Interpretation Comments UA Turbidity (test code = Clear (06/10/16 8:08 UA Turbidity) PM) [facility] [id number] 02:08:00 Test Item Value Reference Range Interpretation Comments U Preg (test code = U Negative (06/10/16 8:08 Preg) PM) [facility] [id number] 02:08:00 Test Item Value Reference Range Interpretation Comments U Protein (test code = U Protein) 375.4 [facility] [id number] 02:08:00 Test Item Value Reference Range Interpretation Comments U Prot/Creat (test code = U Prot/Creat) 5.4 [facility] [id number] 02:08:00 Test Item Value Reference Range Interpretation Comments U Creatinine (test code = U Creatinine) 69.80 [facility] [id number] 16:53:00 Test Item Value Reference Range Interpretation Comments BNP (test code = BNP) 1135 [facility] [id number] 16:53:00 Test Item Value Reference Range Interpretation Comments Troponin-I (test code no gt See_Comment [Auto mated message] The = Troponin-I) system which g enerated this result transmit rohit reference range : <=0.40. The reference r leo was not used to interpr et this result as reji l/abnormal. [facility]landsCHEM [id number] 13:02:00 Test Item Value Reference Range Interpretation Comments Lactic Acid WB (test code = Lactic Acid 0.9 0.5-2.2 WB) [facility]landsSnoueyzCVXNKBRWYW0825-04-03 12:29:44 Test Item Value Reference Range Interpretation Comments Valproic Acid Lvl (test code = Valproic 10 50-100 Acid Lvl) [facility]landsRmbrkfiIBVRHQLDEPNSA3032-35-72 11:21:27 Test Item Value Reference Range Interpretation Comments hCG Tot (test code = hCG Tot) 1 [facility]2015-01-06 11:21:00 Test Item Value Reference Range Interpretation Comments Albumin Lvl (test code = Albumin Lvl) 3.2 3.5-5.0 [facility]2015-01-06 11:21:00 Test Item Value Reference Range Interpretation Comments Total Protein (test code = Total 6.6 6.4-8.4 Protein) [facility]2015-01-06 11:21:00 Test Item Value Reference Range Interpretation Comments Bili Total (test code = Bili Total) 0.6 0.2-1.3 [facility]2015-01-06 11:21:00 Test Item Value Reference Range Interpretation Comments Alk Phos (test code = Alk Phos) 59 39-136 [facility]2015-01-06 11:21:00 Test Item Value Reference Range Interpretation Comments AST (test code = AST) 11 See_Comment [Auto mated message] The system which ge nerated this result transmit rohit reference range : <=37. The reference range was not used to interpr et this result as reji l/abnormal. [facility]2015-01-06 11:21:00 Test Item Value Reference Range Interpretation Comments ALT (test code = ALT) 17 See_Comment [Auto mated message] The system which ge nerated this result transmit rohit reference range : <=65. The reference range was not used to interpr et this result as reji l/abnormal. [facility]2015-01-06 11:21:00 Test Item Value Reference Range Interpretation Comments eGFR (test code = eGFR) 99 [facility]2015-01-06 11:21:00 Test Item Value Reference Range Interpretation Comments Glucose Lvl (test code = Glucose Lvl) 314 70-99 [facility]2015-01-06 11:21:00 Test Item Value Reference Range Interpretation Comments Potassium Lvl (test code = Potassium 3.4 3.5-5.1 Lvl) [facility]2015-01-06 11:21:00 Test Item Value Reference Range Interpretation Comments BUN (test code = BUN) 11 7-22 [facility]2015-01-06 11:21:00 Test Item Value Reference Range Interpretation Comments Creatinine Lvl (test code = Creatinine 0.8 0.5-1.4 Lvl) [facility]2015-01-06 11:21:00 Test Item Value Reference Range Interpretation Comments Sodium Lvl (test code = Sodium Lvl) 134 135-145 [facility]2015-01-06 11:21:00 Test Item Value Reference Range Interpretation Comments Chloride Lvl (test code = Chloride Lvl) 94 95-109 [facility]2015-01-06 11:21:00 Test Item Value Reference Range Interpretation Comments Calcium Lvl (test code = Calcium Lvl) 9.1 8.5-10.5 [facility]2015-01-06 11:21:00 Test Item Value Reference Range Interpretation Comments CO2 (test code = CO2) 24 24-32 [facility]2015-01-06 11:21:00 Test Item Value Reference Range Interpretation Comments A/G Ratio (test code = A/G Ratio) 0.9 0.7-1.6 [facility]2015-01-06 11:21:00 Test Item Value Reference Range Interpretation Comments Globulin (test code = Globulin) 3.4 2.0-4.0 [facility]2015-01-06 11:21:00 Test Item Value Reference Range Interpretation Comments B/C Ratio (test code = B/C Ratio) 14 6-25 [facility]2015-01-06 11:21:00 Test Item Value Reference Range Interpretation Comments AGAP (test code = AGAP) 19.4 10.0-20.0 [facility]2015-01-06 11:21:00 Test Item Value Reference Range Interpretation Comments Lipase Lvl (test code = Lipase Lvl) 81 73-393 [facility]woodLgrlibwIDIVDNZLRR8347-80-19 11:21:00 Test Item Value Reference Range Interpretation Comments Large Plt (test code = Large Plt) Slight [facility]woodPanpxnqCDEQOYPGTW8539-95-35 11:21:00 Test Item Value Reference Range Interpretation Comments Basophils # (test code 0.0 See_Comment [Aut omated message] The = Basophils #) system which generated this result tra nsmitted reference range : <=0.2. The reference r leo was not used to int erpret this result as normal/abnormal . [facility]woodDzzcqvjCZAIQSIIRT8430-86-23 11:21:00 Test Item Value Reference Range Interpretation Comments Anisocyte (test code = 1+ *ABN*(06/26/14 5:21 Anisocyte) AM) [facility]woodVwzmaoxDZBCWRSMKC7560-23-00 11:21:00 Test Item Value Reference Range Interpretation Comments Monocytes # (test code 0.6 See_Comment [Aut omated message] The = Monocytes #) system which generated this result tra nsmitted reference range : <=0.8. The reference r leo was not used to int erpret this result as normal/abnormal . [facility] KingwoodZdwlncwMACKQRVAWQ1131-43-33 11:21:00 Test Item Value Reference Range Interpretation Comments Eosinophils # (test code 0.1 See_Comment [A utomated message] The = Eosinophils #) system whic h generated this result tra nsmitted reference range : <=0.5. The reference r leo was not used to int erpret this result as normal/abnormal . [facility] KingwoodRmqzjjoWARRVFGIWT2984-36-27 11:21:00 Test Item Value Reference Range Interpretation Comments Lymphocytes # (test code = Lymphocytes 2.5 1.0-5.5 #) [facility] KingwoodRjammwaRVBHBIPJMC2415-70-05 11:21:00 Test Item Value Reference Range Interpretation Comments Segs (test code = Segs) 63.3 45.0-75.0 [facility]woodAxflspmRVTPWZGARZ2743-25-38 11:21:00 Test Item Value Reference Range Interpretation Comments Segs-Bands # (test code = Segs-Bands #) 5.6 1.5-8.1 [facility]woodTmchrbgFESIBBHTWE1613-67-16 11:21:00 Test Item Value Reference Range Interpretation Comments Basophils (test code = 0.0 See_Comment [Aut omated message] The Basophils) system which ge nerated this result tra nsmitted reference range : <=1.0. The reference r leo was not used to int erpret this result as normal/abnormal . [facility] KingwoodLhdeygnETSYQGBANK7795-20-53 11:21:00 Test Item Value Reference Range Interpretation Comments Eosinophils (test code = 0.9 See_Comment [A utomated message] The Eosinophils) system which ge nerated this result tra nsmitted reference range : <=4.0. The reference r leo was not used to int erpret this result as normal/abnormal . [facility]woodVeyuncxMQRTIECNSR8655-03-37 11:21:00 Test Item Value Reference Range Interpretation Comments Monocytes (test code = Monocytes) 7.0 2.0-12.0 [facility]woodJsqdpbmNYTGFSRSQB5644-57-43 11:21:00 Test Item Value Reference Range Interpretation Comments Lymphocytes (test code = Lymphocytes) 28.8 20.0-40.0 [facility]woodWzbyvgvBIBKCMGZMZ2845-78-65 11:21:00 Test Item Value Reference Range Interpretation Comments WBC (test code = WBC) 8.8 3.7-10.4 [facility]woodWefllkqEOLLFPNJFN3861-25-95 11:21:00 Test Item Value Reference Range Interpretation Comments RBC (test code = RBC) 5.19 4.20-5.40 [facility] KingwoodVkeveytVOASJIEBPF1966-67-97 11:21:00 Test Item Value Reference Range Interpretation Comments Hgb (test code = Hgb) 14.4 12.0-16.0 [facility]woodPftnqelDAEVSONKXF0158-97-77 11:21:00 Test Item Value Reference Range Interpretation Comments Hct (test code = Hct) 43.1 36.0-48.0 [facility]woodMdzmovuFOTPLALWER3239-31-37 11:21:00 Test Item Value Reference Range Interpretation Comments MCV (test code = MCV) 83.1 80.0-98.0 [facility]woodOamqnagZSLOLJRCER0602-78-89 11:21:00 Test Item Value Reference Range Interpretation Comments MCH (test code = MCH) 27.8 pg 27.0-31.0 [facility]woodFexmyfcNZKCPXFNID7062-40-55 11:21:00 Test Item Value Reference Range Interpretation Comments RDW (test code = RDW) 13.1 11.5-14.5 [facility]woodOzgzorsZANIQPSHKZ0675-74-69 11:21:00 Test Item Value Reference Range Interpretation Comments MCHC (test code = MCHC) 33.5 32.0-36.0 [facility]woodYgvyncoKMKQEWRQVH5126-81-22 11:21:00 Test Item Value Reference Range Interpretation Comments Platelet (test code = Platelet) 201 133-450 [facility] KingwoodYhapqkaLCMTGZPCUI4851-88-49 11:21:00 Test Item Value Reference Range Interpretation Comments MPV (test code = MPV) 10.4 7.4-10.4 [facility]ZqrhvsdWNNJWYWTON2862-77-51 04:48:55 Test Item Value Reference Range Interpretation Comments UA Alburtis Yeast (test code = UA Occasional /HPF A Alburtis Yeast) [facility]OfpzcqzITKIRKAPBV8247-61-20 04:48:55 Test Item Value Reference Range Interpretation Comments UA Mucus (test code = UA Mucus) Few /LPF N [facility] HospitalDysfkmtBDMSHSRGRM7212-30-92 04:48:55 Test Item Value Reference Range Interpretation Comments UA Sq Epi (test code = UA Sq Moderate /LPF A Epi) [facility] HospitalGqyagzxZTBKQDFGGN2851-14-60 04:48:55 Test Item Value Reference Range Interpretation Comments Micro? (test code = Performed (04/14/2013 N Micro?) 23:48:55) [facility] HospitalJtsqhstCQCQROFRRK1287-87-35 04:48:55 Test Item Value Reference Range Interpretation Comments UA WBC (test code = UA WBC) 0-2 /HPF N [facility] HospitalNpkplslGGMDGPXKAC9377-35-60 04:48:55 Test Item Value Reference Range Interpretation Comments UA Bacteria (test code = UA Occasional /HPF N Bacteria) [facility] HospitalGvraklqEGAZTQEABA6204-98-76 04:48:55 Test Item Value Reference Range Interpretation Comments UA Glucose (test code = UA Glucose) 500 mg/dL A [facility] HospitalNivqezoALPCKLFIET1144-38-50 04:48:55 Test Item Value Reference Range Interpretation Comments UA Bili (test code = Negative *NA*(04/14/2013 UA Bili) 23:48:55) [facility] HospitalKiiarbzEYDIFRCOAS4862-58-31 04:48:55 Test Item Value Reference Range Interpretation Comments UA Ketones (test code = Trace A UA Ketones) *ABN*(04/14/2013 23:48:55) [facility] HospitalHxblsccPKMJJYDOEZ8063-27-55 04:48:55 Test Item Value Reference Range Interpretation Comments UA Blood (test code = Negative (04/14/2013 N UA Blood) 23:48:55) [facility] HospitalIotlrdlQXTECBBQLJ9269-33-78 04:48:55 Test Item Value Reference Range Interpretation Comments UA Urobilinogen (test code = UA 0.2 0.1-1.0 N Urobilinogen) [facility] HospitalNnhmtqlZVEQJWWSHY4849-97-24 04:48:55 Test Item Value Reference Range Interpretation Comments UA Nitrite (test code Negative (04/14/2013 N = UA Nitrite) 23:48:55) [facility] CenterUgmebepEYYPVTMHFC2437-94-68 04:48:55 Test Item Value Reference Range Interpretation Comments UA Leuk Est (test Negative (04/14/2013 N code = UA Leuk Est) 23:48:55) [facility] HospitalNbzggorRLBWBDCPQY2757-51-98 04:48:55 Test Item Value Reference Range Interpretation Comments UA Turbidity (test code = Clear (04/14/2013 N UA Turbidity) 23:48:55) [facility] HospitalJhvshnlBGLCPRWPFZ7886-03-92 04:48:55 Test Item Value Reference Range Interpretation Comments UA Color (test code = Yellow *NA*(04/14/2013 UA Color) 23:48:55) [facility] HospitalAxwljnuGMTKHJKKXN7661-39-65 04:48:55 Test Item Value Reference Range Interpretation Comments UA pH (test code = UA pH) 7.0 1 5.0-8.[address] [facility] HospitalDlayocyJTJBZPDBKP3323-83-98 04:48:55 Test Item Value Reference Range Interpretation Comments UA Spec Grav (test code = UA Spec 1.025 1 N Grav) [facility] HospitalZikjmscQNAVHCJECT9165-51-98 04:48:55 Test Item Value Reference Range Interpretation Comments UA Protein (test code = Trace A UA Protein) *ABN*(04/14/2013 23:48:55) [facility] CenterKbfoymjPLQIZHWTL2003-99-32 04:28:00 Test Item Value Reference Range Interpretation Comments S Preg (test code = S Negative *NA*(04/14/2013 Preg) 23:28:00) [facility] CenterBrmyyysYNOQCGZUR9322-03-24 04:28:00 Test Item Value Reference Range Interpretation Comments Lipase Lvl (test code = Lipase Lvl) 233 73-[address] [facility] CenterXokpmhoPNICFMIYS4379-37-11 04:28:00 Test Item Value Reference Range Interpretation Comments Globulin (test code = Globulin) 4.1 2.0-4.[address] [facility] CenterJwsvzxuQOKVVTWIW1486-76-09 04:28:00 Test Item Value Reference Range Interpretation Comments AGAP (test code = AGAP) 10.5 10.0-20.[address] [facility] CenterGuerospPDDAOTZMP4061-58-05 04:28:00 Test Item Value Reference Range Interpretation Comments B/C Ratio (test code = B/C Ratio) 6 6-[address] [facility] CenterDvbasbuNVKQGYAEW4596-81-57 04:28:00 Test Item Value Reference Range Interpretation Comments A/G Ratio (test code = A/G Ratio) 0.7 0.7-1.[address] [facility] CenterNwmihnuDIOSOYXLG8386-41-07 04:28:00 Test Item Value Reference Range Interpretation Comments eGFR (test code = eGFR) 130 [facility] CenterDnhupvuJXGAFRYBF8141-26-58 04:28:00 Test Item Value Reference Range Interpretation Comments Albumin Lvl (test code = Albumin Lvl) 2.9 3.5-5.[address] [facility] CenterCiqthtbSQTZGTORL1875-96-01 04:28:00 Test Item Value Reference Range Interpretation Comments ASPARTATE TRANSAMINASE 20 See_Comment N [Aut omated message] (test code = ASPARTATE The s ystem which TRANSAMINASE) generated this result transmitted ref erence range: <=37. Th e reference range was not used to interpr et this result as normal/abnormal . [facility] CenterAuyzzepQDLRVKZDE4026-83-89 04:28:00 Test Item Value Reference Range Interpretation Comments Bili Total (test code = Bili Total) 0.5 0.2-1.[address] [facility] CenterJjbbpvvHBOQKKAQK6542-83-20 04:28:00 Test Item Value Reference Range Interpretation Comments Alk Phos (test code = Alk Phos) 89 39-[address] [facility] CenterEckecqnRCIUENNGH5154-35-91 04:28:00 Test Item Value Reference Range Interpretation Comments ALANINE AMINOTRANSFERASE 11 See_Comment N [A utomated message] (test code = ALANINE The sys tem which AMINOTRANSFERASE) generated this result transmitted ref erence range: <=65. Th e reference range was not used to int erpret this result as normal/abnormal . [facility] CenterGsvuvseGEITGYOLY7330-31-53 04:28:00 Test Item Value Reference Range Interpretation Comments Creatinine Lvl (test code = Creatinine 0.5 0.5-1.4 N Lvl) [facility] CenterHxvkzhvGYSGLVSCZ9783-55-57 04:28:00 Test Item Value Reference Range Interpretation Comments BUN (test code = BUN) 3 7-[address] [facility] CenterFalggtrVOHXDASIQ1969-00-28 04:28:00 Test Item Value Reference Range Interpretation Comments Glucose Lvl (test code = Glucose Lvl) 255 70-[address] [facility] CenterBivgxoiXQHZXOZAY9216-01-82 04:28:00 Test Item Value Reference Range Interpretation Comments Total Protein (test code = Total 7.0 6.4-8.4 N Protein) [facility] CenterAiowbfeCGDNTNMYA5327-66-98 04:28:00 Test Item Value Reference Range Interpretation Comments Calcium Lvl (test code = Calcium Lvl) 8.7 8.5-10.[address] [facility] CenterMlpofwhRFNKLUVKL7593-86-59 04:28:00 Test Item Value Reference Range Interpretation Comments CO2 (test code = CO2) 29 24-[address] [facility] CenterEygbdcaTGBOEHGPD2747-08-04 04:28:00 Test Item Value Reference Range Interpretation Comments Chloride Lvl (test code = Chloride Lvl) 104 95-[address] [facility] CenterJoobfplUZAWOCVNG1298-08-75 04:28:00 Test Item Value Reference Range Interpretation Comments Potassium Lvl (test code = Potassium 3.5 3.5-5.1 N Lvl) [facility] CenterFyydksbHMVUUNRYF7042-71-69 04:28:00 Test Item Value Reference Range Interpretation Comments Sodium Lvl (test code = Sodium Lvl) 140 135-145 N [facility]woodDfiqcmnGRXWENQCUV4419-12-01 04:28:00 Test Item Value Reference Range Interpretation Comments PROTIME (test code = PROTIME) 12.1 s 12.0-14.7 N [facility]woodVegxhrbFQFTEMGSOP3913-62-59 04:28:00 Test Item Value Reference Range Interpretation Comments aPTT (test code = aPTT) 39.0 s 22.9-35.8 H [facility]woodPaqelrcXVECAURDFP1468-05-38 04:28:00 Test Item Value Reference Range Interpretation Comments INR (test code = INR) 0.90 0.85-1.17 N [facility]woodVcapkjpGXJJFSGLKK1593-66-23 04:28:00 Test Item Value Reference Range Interpretation Comments MCH (test code = MCH) 29.4 pg 27.0-31.0 N [facility]woodGzdxkveMWDRHYVXTZ9940-35-43 04:28:00 Test Item Value Reference Range Interpretation Comments MCV (test code = MCV) 86.1 81.0-99.0 N [facility]woodHhcmvpaZDCXCDSIRW2630-28-57 04:28:00 Test Item Value Reference Range Interpretation Comments Hct (test code = Hct) 29.4 36.0-48.0 L [facility]woodZqzhywtHDAJOGCOQA5959-92-16 04:28:00 Test Item Value Reference Range Interpretation Comments RDW (test code = RDW) 14.0 11.5-14.5 N [facility]woodLkoadtqACOONWCFFW4760-10-72 04:28:00 Test Item Value Reference Range Interpretation Comments WBC X 10x3 (test code = WBC X 10x3) 6.2 3.7-10.4 N [facility]woodHxcktddVBPNBPIXVY3561-36-80 04:28:00 Test Item Value Reference Range Interpretation Comments Platelet (test code = Platelet) 178 133-450 N [facility]woodBrqwacjNXMDAIZOKT8807-29-42 04:28:00 Test Item Value Reference Range Interpretation Comments MCHC (test code = MCHC) 34.1 32.0-36.0 N [facility]woodBvhmyxrEYJFBHZVND7673-06-19 04:28:00 Test Item Value Reference Range Interpretation Comments RBC X 10x6 (test code = RBC X 10x6) 3.41 4.20-5.40 L [facility]woodUkrvfzwGFMGTDNZJE1727-69-71 04:28:00 Test Item Value Reference Range Interpretation Comments Hgb (test code = Hgb) 10.0 12.0-16.0 L [facility]woodUfldddrEZLMUADOMK5146-03-32 04:28:00 Test Item Value Reference Range Interpretation Comments MPV (test code = MPV) 10.1 7.4-10.4 N [facility]woodUeqqhqzHTFYPOELVM8815-91-53 04:28:00 Test Item Value Reference Range Interpretation Comments Segs-Bands # (test code = Segs-Bands #) 4.4 1.5-8.1 N [facility]woodKcgldgvVZMPQETRSI2235-14-22 04:28:00 Test Item Value Reference Range Interpretation Comments Basophils (test code = 0.7 See_Comment N [Aut omated message] The Basophils) system which ge nerated this result tra nsmitted reference range : <=1.0. The reference r leo was not used to int erpret this result as normal/abnormal . [facility]woodUnlkiqrRPKUINOTVV8782-32-02 04:28:00 Test Item Value Reference Range Interpretation Comments Segs (test code = Segs) 70.7 45.0-75.0 N [facility]woodXpujwhjEQISZTAPTA9989-53-01 04:28:00 Test Item Value Reference Range Interpretation Comments Monocytes # (test code 0.3 See_Comment N [Aut omated message] The = Monocytes #) system which generated this result tra nsmitted reference range : <=0.8. The reference r leo was not used to int erpret this result as normal/abnormal . [facility] KingwoodYlobgecTNIKXRZUQV3251-06-77 04:28:00 Test Item Value Reference Range Interpretation Comments Lymphocytes # (test code = Lymphocytes 1.2 1.0-5.5 N #) [facility] KingwoodZoalioaFXNBTQQFWW3064-87-46 04:28:00 Test Item Value Reference Range Interpretation Comments Monocytes (test code = Monocytes) 4.5 2.0-12.0 N [facility]woodAkhyzigIDIWVVWNFB7023-89-99 04:28:00 Test Item Value Reference Range Interpretation Comments Eosinophils (test code = 4.1 See_Comment H [A utomated message] The Eosinophils) system which ge nerated this result tra nsmitted reference range : <=4.0. The reference r leo was not used to int erpret this result as normal/abnormal . [facility]woodYvsmcadVKCJTMQLSS1124-61-49 04:28:00 Test Item Value Reference Range Interpretation Comments Lymphocytes (test code = Lymphocytes) 20.0 20.0-40.0 N [facility]B[id number] 04:28:00 Test Item Value Reference Range Interpretation Comments Basophils # (test code 0.0 See_Comment N [Aut omated message] The = Basophils #) system which generated this result tra nsmitted reference range : <=0.2. The reference r leo was not used to int erpret this result as normal/abnormal . [facility]woodZkxpqikZRDAHHOHYI2001-17-84 04:28:00 Test Item Value Reference Range Interpretation Comments Eosinophils # (test code 0.3 See_Comment N [A utomated message] The = Eosinophils #) system whic h generated this result tra nsmitted reference range : <=0.5. The reference r leo was not used to int erpret this result as normal/abnormal . [facility] GLUCOSE [id number] 01:12:00 Test Item Value Reference Range Interpretation Comments Gluc POC Lifscn (test code = Gluc POC 260 70-99 H Lifscn) [facility] GLUCOSE [id number] 01:12:00 Test Item Value Reference Range Interpretation Comments Comment1 (test code = Comment1) [facility]EMDKXY4730-78-45 23:40:00 Test Item Value Reference Range Interpretation Comments UA Protein (test code = Trace A UA Protein) *ABN*(03/14/2012 18:40:00) [facility] HospitalJvzffrqXVGALIXJML1861-77-16 23:40:00 Test Item Value Reference Range Interpretation Comments UA pH (test code = UA pH) 6.0 1 5.0-8.[address] [facility] HospitalDvbnxsxATJXQVYOJS3973-61-74 23:40:00 Test Item Value Reference Range Interpretation Comments UA Ketones (test code = >=80 mg/dL UA Ketones) *NA*(03/14/2012 18:40:00) [facility] HospitalCrrmjakKOQTKOOFNY5636-40-79 23:40:00 Test Item Value Reference Range Interpretation Comments UA Glucose (test code = >=1000 mg/dL A UA Glucose) *ABN*(03/14/2012 18:40:00) [facility] HospitalMfxgzymYNYCJUAEPE3953-73-47 23:40:00 Test Item Value Reference Range Interpretation Comments UA Blood (test code = Negative (03/14/2012 N UA Blood) 18:40:00) [facility] HospitalZtfejqlRUCSQJQOHS3323-24-87 23:40:00 Test Item Value Reference Range Interpretation Comments UA Nitrite (test code Negative (03/14/2012 N = UA Nitrite) 18:40:00) [facility] HospitalLusqqvyOMBEWVTZLK5771-27-39 23:40:00 Test Item Value Reference Range Interpretation Comments UA Urobilinogen (test code = UA 0.2 0.1-1.0 N Urobilinogen) [facility] HospitalLedsxbfGYRDSGPGNS0987-83-23 23:40:00 Test Item Value Reference Range Interpretation Comments UA Leuk Est (test Negative (03/14/2012 N code = UA Leuk Est) 18:40:00) [facility] HospitalBjfbdtuGINEJJBLYY6691-62-76 23:40:00 Test Item Value Reference Range Interpretation Comments UA Bili (test code = Negative *NA*(03/14/2012 UA Bili) 18:40:00) [facility] HospitalCloqbizCXQNNZYWFO7214-44-90 23:40:00 Test Item Value Reference Range Interpretation Comments UA Turbidity (test code = Clear (03/14/2012 N UA Turbidity) 18:40:00) [facility]UnngaubPWBDVXZCNU8713-88-82 23:40:00 Test Item Value Reference Range Interpretation Comments UA Color (test code = Yellow *NA*(03/14/2012 UA Color) 18:40:00) [facility] HospitalJkstnbyPOGQTVOSPS5379-61-55 23:40:00 Test Item Value Reference Range Interpretation Comments UA Spec Grav (test >=1.030 A code = UA Spec Grav) *ABN*(03/14/2012 18:40:00) [facility] HospitalMgisuxxCRZUXKHYJV7021-39-99 23:40:00 Test Item Value Reference Range Interpretation Comments UA Sq Epi (test code Occasional /LPF N = UA Sq Epi) (03/14/2012 18:40:00) [facility] HospitalJcccofaFFWFPYUHHT6875-41-10 23:40:00 Test Item Value Reference Range Interpretation Comments UA WBC (test code = UA 3-5 /HPF (03/14/2012 N WBC) 18:40:00) [facility] HospitalYwkwkdaUUFGJLXVPC0439-58-91 23:40:00 Test Item Value Reference Range Interpretation Comments UA Bacteria (test code Occasional /HPF N = UA Bacteria) (03/14/2012 18:40:00) [facility] CenterTxcqharWVEZCYUQB1976-92-56 22:50:00 Test Item Value Reference Range Interpretation Comments S Preg (test code = S Negative *NA*(03/14/2012 Preg) 17:50:00) [facility] CenterGckidkcJWGEHPQBI6381-86-07 22:50:00 Test Item Value Reference Range Interpretation Comments Lipase Lvl (test code = Lipase Lvl) 45 73-[address] [facility] CenterApttdazSLPHNBJSN6407-04-74 22:50:00 Test Item Value Reference Range Interpretation Comments A/G Ratio (test code = A/G Ratio) 1.2 0.7-1.[address] [facility] CenterIvvdyvpGGJPQZRAG2837-67-47 22:50:00 Test Item Value Reference Range Interpretation Comments Globulin (test code = Globulin) 3.8 2.0-4.[address] [facility] CenterYvodwjxJENGONBQG8832-68-93 22:50:00 Test Item Value Reference Range Interpretation Comments B/C Ratio (test code = B/C Ratio) 21 6-[address] [facility] CenterRikormnUJMXYKSSN8805-48-05 22:50:00 Test Item Value Reference Range Interpretation Comments AGAP (test code = AGAP) 16.8 10.0-20.[address] [facility] CenterExvgsmdDEZGHSQBV8680-26-09 22:50:00 Test Item Value Reference Range Interpretation Comments Bili Total (test code = Bili Total) 1.1 0.2-1.[address] [facility] CenterAvaleyiCOIPZNYFA3319-92-78 22:50:00 Test Item Value Reference Range Interpretation Comments Total Protein (test code = Total 8.2 6.4-8.4 N Protein) [facility] CenterBpxmncbDWTYFUFRO0071-41-95 22:50:00 Test Item Value Reference Range Interpretation Comments Potassium Lvl (test code = Potassium 3.8 3.5-5.1 N Lvl) [facility] CenterQhnvzgnLJYEAAXZT4272-30-04 22:50:00 Test Item Value Reference Range Interpretation Comments Creatinine Lvl (test code = Creatinine 0.7 0.5-1.4 N Lvl) [facility] CenterDlyldmgGPCIORMBV2929-67-07 22:50:00 Test Item Value Reference Range Interpretation Comments Sodium Lvl (test code = Sodium Lvl) 139 135-[address] [facility] [facility] CenterKzxzcorHSPCKZODZ3388-31-39 22:50:00 Test Item Value Reference Range Interpretation Comments Chloride Lvl (test code = Chloride Lvl) 99 95-[address] [facility] CenterEcnoaqkDXFYFVLNK9829-53-89 22:50:00 Test Item Value Reference Range Interpretation Comments CO2 (test code = CO2) 27 24-[address] [facility] CenterMtfbkscWUWXDYKTQ9239-31-52 22:50:00 Test Item Value Reference Range Interpretation Comments Glucose Lvl (test code = Glucose Lvl) 301 70-[address] [facility] CenterHlrfseyRCXSMBJUL7352-75-85 22:50:00 Test Item Value Reference Range Interpretation Comments BUN (test code = BUN) 15 7-[address] [facility] CenterTrfrieqNSVSFKCFX2789-34-49 22:50:00 Test Item Value Reference Range Interpretation Comments ALT (test code = ALT) 24 See_Comment N [Auto mated message] The system which ge nerated this result transmit rohit reference range : <=65. The reference range was not used to interpr et this result as reji l/abnormal. [facility] CenterOymmxcgDJUZNWDHQ9560-32-79 22:50:00 Test Item Value Reference Range Interpretation Comments AST (test code = AST) 20 See_Comment N [Auto mated message] The system which ge nerated this result transmit rohit reference range : <=37. The reference range was not used to interpr et this result as reji l/abnormal. [facility] CenterHjdssaiQWBNNQXIW5388-95-96 22:50:00 Test Item Value Reference Range Interpretation Comments Alk Phos (test code = Alk Phos) 67 39-[address] [facility] [facility] CenterJvfhycnTJTRDNVNC8527-48-00 22:50:00 Test Item Value Reference Range Interpretation Comments Albumin Lvl (test code = Albumin Lvl) 4.4 3.5-5.[address] [facility] CenterIcwtqnlTPHNICOPL4111-45-96 22:50:00 Test Item Value Reference Range Interpretation Comments Calcium Lvl (test code = Calcium Lvl) 9.9 8.5-10.5 N [facility]woodNleyvecGHIYYHSFAM0656-73-31 22:50:00 Test Item Value Reference Range Interpretation Comments MPV (test code = MPV) 11.8 7.4-10.4 H [facility]woodNtnwwmxCPXVTPHEZQ9336-79-38 22:50:00 Test Item Value Reference Range Interpretation Comments MCHC (test code = MCHC) 35.9 32.0-36.0 N [facility]woodHzvipaaEKOXGQUTIV2660-16-61 22:50:00 Test Item Value Reference Range Interpretation Comments MCH (test code = MCH) 31.2 pg 27.0-31.0 H [facility]woodVpecrnxUVQDLPVTBN7687-36-02 22:50:00 Test Item Value Reference Range Interpretation Comments Platelet (test code = Platelet) 189 133-450 N [facility]woodCtzzksfTZZIRJVSBI4410-64-69 22:50:00 Test Item Value Reference Range Interpretation Comments RDW (test code = RDW) 13.1 11.5-14.5 N [facility]woodUjbhcbgEPGRKABVKA1266-11-86 22:50:00 Test Item Value Reference Range Interpretation Comments Hct (test code = Hct) 40.7 36.0-48.0 N [facility]woodQtjpmtpJPFKNLQZYL8141-24-76 22:50:00 Test Item Value Reference Range Interpretation Comments Hgb (test code = Hgb) 14.6 12.0-16.0 N [facility]woodTplhsucAXPDITFIEC4850-94-51 22:50:00 Test Item Value Reference Range Interpretation Comments MCV (test code = MCV) 87.0 81.0-99.0 N [facility]woodTmuctwoAPZUEGOJTM7079-93-79 22:50:00 Test Item Value Reference Range Interpretation Comments WBC (test code = WBC) 11.7 3.7-10.4 H [facility]woodQamuvqhKONCERDFLS1752-94-83 22:50:00 Test Item Value Reference Range Interpretation Comments RBC (test code = RBC) 4.68 4.20-5.40 N [facility]woodSbcjkryFSXNMTBFPF1927-22-86 22:50:00 Test Item Value Reference Range Interpretation Comments Basophils # (test code 0.0 See_Comment N [Aut omated message] The = Basophils #) system which generated this result tra nsmitted reference range : <=0.2. The reference r leo was not used to int erpret this result as normal/abnormal . [facility]woodJvaqwjrVUPLTCKTIB7117-94-60 22:50:00 Test Item Value Reference Range Interpretation Comments Basophils (test code = 0.2 See_Comment N [Aut omated message] The Basophils) system which ge nerated this result tra nsmitted reference range : <=1.0. The reference r leo was not used to int erpret this result as normal/abnormal . [facility]woodBacfbuqOFZAXUBCGP3873-77-26 22:50:00 Test Item Value Reference Range Interpretation Comments Eosinophils # (test code 0.0 See_Comment N [A utomated message] The = Eosinophils #) system whic h generated this result tra nsmitted reference range : <=0.5. The reference r leo was not used to int erpret this result as normal/abnormal . [facility]woodRnagueoJSHKNLAJWW1017-00-98 22:50:00 Test Item Value Reference Range Interpretation Comments Monocytes # (test code 0.4 See_Comment N [Aut omated message] The = Monocytes #) system which generated this result tra nsmitted reference range : <=0.8. The reference r leo was not used to int erpret this result as normal/abnormal . [facility]woodLvsoxxuSNGVJWQLWX9170-62-28 22:50:00 Test Item Value Reference Range Interpretation Comments Segs-Bands # (test code = Segs-Bands #) 10.6 1.5-8.1 H [facility]woodXdgnhwyGFFAAVIVXP3597-49-39 22:50:00 Test Item Value Reference Range Interpretation Comments Lymphocytes # (test code = Lymphocytes 0.7 1.0-5.5 L #) [facility]woodQldjberQEVHWUYILN0107-17-07 22:50:00 Test Item Value Reference Range Interpretation Comments Monocytes (test code = Monocytes) 3.4 2.0-12.0 N [facility]woodIkrutrtXCJIPKPANU6717-10-73 22:50:00 Test Item Value Reference Range Interpretation Comments Plt Morph (test code = Normal (03/14/2012 N Plt Morph) 17:50:00) [facility]woodVjesklkIDPGVZJXHK4767-46-01 22:50:00 Test Item Value Reference Range Interpretation Comments Lymphocytes (test code = Lymphocytes) 6.0 20.0-40.0 L [facility]woodXilrukhSOUTASLYBJ1170-32-25 22:50:00 Test Item Value Reference Range Interpretation Comments Eosinophils (test code = 0.0 See_Comment N [A utomated message] The Eosinophils) system which ge nerated this result tra nsmitted reference range : <=4.0. The reference r leo was not used to int erpret this result as normal/abnormal . [facility]woodMxrqwldYCXKDLKXMM2765-21-22 22:50:00 Test Item Value Reference Range Interpretation Comments Segs (test code = Segs) 90.4 45.0-75.0 H [facility]woodQmthxepAOVAHKRFRJ5291-72-91 22:50:00 Test Item Value Reference Range Interpretation Comments RBC Morph (test code = Normal (03/14/2012 N RBC Morph) 17:50:00) [facility] GLUCOSE MYKFLNL9992-97-57 23:43:00 Test Item Value Reference Range Interpretation Comments Gluc POC Lifscn (test code = Gluc POC 167 70-99 H Lifscn) [facility] GLUCOSE DXMFHCI3297-56-70 23:43:00 Test Item Value Reference Range Interpretation Comments Comment1 (test code = Comment1) Notify RN/MD [facility] GLUCOSE [id number] 23:43:00 Test Item Value Reference Range Interpretation Comments Comment2 (test code = Comment2) Sliding Scale [facility] GLUCOSE GODJWPP4562-49-16 17:40:00 Test Item Value Reference Range Interpretation Comments Gluc POC Lifscn (test code = Gluc POC 189 70-99 H Lifscn) [facility] GLUCOSE SVAORRQ0253-37-82 17:40:00 Test Item Value Reference Range Interpretation Comments Comment1 (test code = Comment1) [facility]annSUM[facility]ERS[facility] GLUCOSE [id number] 17:40:00 Test Item Value Reference Range Interpretation Comments Comment2 (test code = Comment2) Sliding Scale [facility] GLUCOSE POMFUZZ7599-90-72 13:34:00 Test Item Value Reference Range Interpretation Comments Comment2 (test code = Comment2) Sliding Scale [facility] GLUCOSE DJOZWMO8361-76-48 13:34:00 Test Item Value Reference Range Interpretation Comments Gluc POC Lifscn (test code = Gluc POC 110 70-99 H Lifscn) [facility] GLUCOSE JCUJCQH1670-50-71 13:34:00 Test Item Value Reference Range Interpretation Comments Comment1 (test code = Comment1) [facility] CenterUpueghoQNQUJGXNO9072-07-46 00:00:00 Test Item Value Reference Range Interpretation Comments U Preg (test code = U Negative (11/28/2011 N Preg) 19:00:00) [facility]landsAweejkjNHVEIVPBQX1181-79-61 00:00:00 Test Item Value Reference Range Interpretation Comments Micro? (test code = Performed (11/28/2011 N Micro?) 19:00:00) [facility]landsHhepjrgLCTLKJWZDS3139-02-89 00:00:00 Test Item Value Reference Range Interpretation Comments UA Sq Epi (test code Occasional /LPF N = UA Sq Epi) (11/28/2011 19:00:00) [facility]landsOrvvwyzUJMHSTQSZI3453-07-53 00:00:00 Test Item Value Reference Range Interpretation Comments UA RBC (test None Seen See_Comment N [Automated mes patsor] code = UA RBC) (11/28/2011 The system ich 19:00:00) generated this result transmitted ref erence range: <=2. The reference range was not used to int erpret this result as normal/abnormal . [facility] CenterJalrlzuWEEUSNBKLT1531-76-58 00:00:00 Test Item Value Reference Range Interpretation Comments UA WBC (test code Occasional See_Comment [Automate d message] The = UA WBC) system which ge nerated this result tra nsmitted reference range : <=5. The reference range was not used to interpr et this result as normal/abnormal . [facility] CenterBtqmaqbIMOPJFSNLV2155-21-91 00:00:00 Test Item Value Reference Range Interpretation Comments UA Protein (test code Negative mg/dL N = UA Protein) (11/28/2011 19:00:00) [facility] HospitalRisskcaNVVLSFPTRF1927-61-56 00:00:00 Test Item Value Reference Range Interpretation Comments UA pH (test code = UA pH) 7.0 1 5.0-8.[address] [facility] HospitalYgcxjlbAZKLMPPJFF7641-04-17 00:00:00 Test Item Value Reference Range Interpretation Comments UA Spec Grav (test code = UA Spec 1.020 1 N Grav) [facility] HospitalUuirjwtZLAOYNXBOX6525-52-65 00:00:00 Test Item Value Reference Range Interpretation Comments UA Turbidity (test code = Clear (11/28/2011 N UA Turbidity) 19:00:00) [facility] HospitalXrjnwmzFDDMOIIABQ3995-52-58 00:00:00 Test Item Value Reference Range Interpretation Comments UA Color (test code = Yellow *NA*(11/28/2011 UA Color) 19:00:00) [facility] HospitalTkaruwtQXVSDCWUJT7862-91-75 00:00:00 Test Item Value Reference Range Interpretation Comments UA Urobilinogen (test code = UA 0.2 0.1-1.0 N Urobilinogen) [facility] HospitalWetyczvKKMEAYEMGX3920-68-61 00:00:00 Test Item Value Reference Range Interpretation Comments UA Blood (test code = Negative (11/28/2011 N UA Blood) 19:00:00) [facility] HospitalPtxnyylRHOBVSOCJO7642-79-95 00:00:00 Test Item Value Reference Range Interpretation Comments UA Bili (test code = Negative *NA*(11/28/2011 UA Bili) 19:00:00) [facility] HospitalNfxyvrrSMHDFQYBEM5272-09-59 00:00:00 Test Item Value Reference Range Interpretation Comments UA Ketones (test code = >=80 mg/dL A UA Ketones) *ABN*(11/28/2011 19:00:00) [facility] HospitalUzkzzapYXMDHDMMKL1330-65-42 00:00:00 Test Item Value Reference Range Interpretation Comments UA Glucose (test code = >=1000 mg/dL A UA Glucose) *ABN*(11/28/2011 19:00:00) [facility] HospitalShkwynuTPCOVETEMY2329-95-14 00:00:00 Test Item Value Reference Range Interpretation Comments UA Nitrite (test code Negative (11/28/2011 N = UA Nitrite) 19:00:00) [facility]landsTureajvBRIEYATCPM8012-98-58 00:00:00 Test Item Value Reference Range Interpretation Comments UA Leuk Est (test Negative (11/28/2011 N code = UA Leuk Est) 19:00:00) [facility]landsRedzapdHDHZGKEZE2250-06-28 20:41:00 Test Item Value Reference Range Interpretation Comments pO2 Roberth (test code = pO2 Roberth) 60 20-[address] [facility] CenterSpujzlnHZRIXIYWR0831-22-80 20:41:00 Test Item Value Reference Range Interpretation Comments pCO2 Roberth (test code = pCO2 Roberth) 41 38-[address] [facility] CenterCrizeyvIQGZZDSOH3716-37-06 20:41:00 Test Item Value Reference Range Interpretation Comments pH Roberth (test code = pH Roberth) 7.45 7.28-7.[address] [facility] CenterJlpmfaoYZFSOHYOX3303-75-74 20:41:00 Test Item Value Reference Range Interpretation Comments Temp Roberth (test code = Temp Roberth) 37.0 [facility] CenterGtvlmeuYSHFKDIER1284-69-17 20:41:00 Test Item Value Reference Range Interpretation Comments O2 Sat Roberth (test code = O2 Sat Roberth) 92.0 40.0-70.[address] [facility] CenterFmkcnhmZMCQMVYTE1180-70-98 20:41:00 Test Item Value Reference Range Interpretation Comments BE Roberth (test code = 4 See_Comment H [Automa rohit message] The BE Roberth) system which ge nerated this result transmit rohit reference range : <=2. The reference range was not used to interpr et this result as reji l/abnormal. [facility] CenterRyownduNUAIAXWBU0842-56-85 20:41:00 Test Item Value Reference Range Interpretation Comments HCO3 Roberth (test code = HCO3 Roberth) 28.5 22.0-26.[address] [facility] CenterKohdpvqGOSYLLGXV0396-01-82 20:00:00 Test Item Value Reference Range Interpretation Comments Lactic Acid Lvl (test code = Lactic 1.6 0.5-2.2 N Acid Lvl) [facility] CenterYwhrmfqAYHSYSZXF5873-36-18 20:00:00 Test Item Value Reference Range Interpretation Comments Lipase Lvl (test code = Lipase Lvl) 125 73-[address] [facility] [facility] CenterFbbbcwnBFGKLTRJL0214-46-20 20:00:00 Test Item Value Reference Range Interpretation Comments Albumin Lvl (test code = Albumin Lvl) 4.2 3.5-5.[address] [facility] CenterUynbqufIHITWEIRM4521-26-45 20:00:00 Test Item Value Reference Range Interpretation Comments CO2 (test code = CO2) 23 24-[address] [facility] CenterIbseawnPEMWOQLEK1430-60-66 20:00:00 Test Item Value Reference Range Interpretation Comments Chloride Lvl (test code = Chloride Lvl) 98 95-[address] [facility] CenterFshcbqmPBLZIEQEF3761-46-52 20:00:00 Test Item Value Reference Range Interpretation Comments Potassium Lvl (test code = Potassium 3.8 3.5-5.1 N Lvl) [facility] CenterIlxnhwnPHGXAPRPM3742-45-92 20:00:00 Test Item Value Reference Range Interpretation Comments Sodium Lvl (test code = Sodium Lvl) 138 135-[address] [facility] CenterBadsravLWEZKRXZT1487-46-99 20:00:00 Test Item Value Reference Range Interpretation Comments Creatinine Lvl (test code = Creatinine 0.7 0.5-1.4 N Lvl) [facility] CenterCivwfklZHVPVDTHP6208-68-91 20:00:00 Test Item Value Reference Range Interpretation Comments BUN (test code = BUN) 9 7-[address] [facility] CenterQjhacioKSTHCIHXM5548-30-99 20:00:00 Test Item Value Reference Range Interpretation Comments Glucose Lvl (test code = Glucose Lvl) 269 70-[address] [facility] CenterXsjkiidACKJBFGNW0495-81-18 20:00:00 Test Item Value Reference Range Interpretation Comments B/C Ratio (test code = B/C Ratio) 13 6-[address] [facility] CenterKamsqbsOTXAELXCX7848-81-52 20:00:00 Test Item Value Reference Range Interpretation Comments AGAP (test code = AGAP) 20.8 10.0-20.[address] [facility] CenterTuuvpzlXTKXAWCHL4731-75-57 20:00:00 Test Item Value Reference Range Interpretation Comments Calcium Lvl (test code = Calcium Lvl) 9.3 8.5-10.[address] [facility] CenterXlbzojhAXGYCYRNJ4815-79-07 20:00:00 Test Item Value Reference Range Interpretation Comments Total Protein (test code = Total 6.7 6.4-8.4 N Protein) [facility] CenterNjadvxrVCMVTTWWR2266-96-61 20:00:00 Test Item Value Reference Range Interpretation Comments A/G Ratio (test code = A/G Ratio) 1.7 0.7-1.[address] [facility] CenterWwknuqkFSYOGGXXR8391-87-19 20:00:00 Test Item Value Reference Range Interpretation Comments Globulin (test code = Globulin) 2.5 2.0-4.[address] CenterGreuycpLQKEDWHJZ8444-16-71 20:00:00 Test Item Value Reference Range Interpretation Comments AST (test code = AST) 18 See_Comment N [Auto mated message] The system which ge nerated this result transmit rohit reference range : <=37. The reference range was not used to interpr et this result as reji l/abnormal. [facility] CenterMnoepdsWXQUYAHDM4170-03-31 20:00:00 Test Item Value Reference Range Interpretation Comments Alk Phos (test code = Alk Phos) 62 39-[address] [facility] [facility] CenterIshnkgwBHTMKXUBC5790-96-94 20:00:00 Test Item Value Reference Range Interpretation Comments ALT (test code = ALT) 32 See_Comment N [Auto mated message] The system which ge nerated this result transmit rohit reference range : <=65. The reference range was not used to interpr et this result as reji l/abnormal. [facility] CenterPszfnibPZOXJMVEM0429-77-65 20:00:00 Test Item Value Reference Range Interpretation Comments Bili Total (test code = Bili Total) 0.7 0.2-1.3 N [facility]woodNltihaiAVNWHDPLKR2997-78-60 20:00:00 Test Item Value Reference Range Interpretation Comments Anisocyte (test code = 1+ *ABN*(11/28/2011 A Anisocyte) 15:00:00) [facility]woodUefpsykTXHWPGAYDB2844-78-53 20:00:00 Test Item Value Reference Range Interpretation Comments Monocytes # (test code 0.1 See_Comment N [Aut omated message] The = Monocytes #) system which generated this result tra nsmitted reference range : <=0.8. The reference r leo was not used to int erpret this result as normal/abnormal . [facility]woodBorexchQAXKOYOTIK8107-52-73 20:00:00 Test Item Value Reference Range Interpretation Comments Eosinophils # (test code 0.0 See_Comment N [A utomated message] The = Eosinophils #) system whic h generated this result tra nsmitted reference range : <=0.5. The reference r leo was not used to int erpret this result as normal/abnormal . [facility]PhmalpvARHBBPFVJX6197-14-07 20:00:00 Test Item Value Reference Range Interpretation Comments Basophils # (test code 0.0 See_Comment N [Aut omated message] The = Basophils #) system which generated this result tra nsmitted reference range : <=0.2. The reference r leo was not used to int erpret this result as normal/abnormal . [facility]woodJxaaqlmEBCKCYMBVL2508-52-82 20:00:00 Test Item Value Reference Range Interpretation Comments Neut Vac (test code = Slight *ABN*(11/28/2011 A Neut Vac) 15:00:00) [facility]woodKufdfdvHXBXWYOHGY9444-91-50 20:00:00 Test Item Value Reference Range Interpretation Comments Large Plt (test code = Slight *ABN*(11/28/2011 A Large Plt) 15:00:00) [facility]woodVivuxspBMDVABNZXY8194-32-03 20:00:00 Test Item Value Reference Range Interpretation Comments Segs-Bands # (test code = Segs-Bands #) 5.7 1.5-8.1 N [facility]woodVetyireIAIPBUHMUX1514-85-48 20:00:00 Test Item Value Reference Range Interpretation Comments Lymphocytes # (test code = Lymphocytes 0.8 1.0-5.5 L #) [facility]woodFrhnoxpSCYQBHCQCO1133-80-13 20:00:00 Test Item Value Reference Range Interpretation Comments Eosinophils (test code = 0.2 See_Comment N [A utomated message] The Eosinophils) system which ge nerated this result tra nsmitted reference range : <=4.0. The reference r leo was not used to int erpret this result as normal/abnormal . [facility]woodFtqkmdjWOEISJHEFW9660-74-33 20:00:00 Test Item Value Reference Range Interpretation Comments Basophils (test code = 0.0 See_Comment N [Aut omated message] The Basophils) system which ge nerated this result tra nsmitted reference range : <=1.0. The reference r leo was not used to int erpret this result as normal/abnormal . [facility]woodQyfqvfdXJWLGISJXC3206-79-92 20:00:00 Test Item Value Reference Range Interpretation Comments Monocytes (test code = Monocytes) 1.9 2.0-12.0 L [facility]woodJtevtwrILUJSTWDIS5278-95-89 20:00:00 Test Item Value Reference Range Interpretation Comments Segs (test code = Segs) 86.2 45.0-75.0 H [facility]woodEndgmcfHMBAAPSJPO9776-61-14 20:00:00 Test Item Value Reference Range Interpretation Comments Lymphocytes (test code = Lymphocytes) 11.7 20.0-40.0 L [facility]woodIgmznloOBQOCACTHY6202-51-56 20:00:00 Test Item Value Reference Range Interpretation Comments MPV (test code = MPV) 10.8 7.4-10.4 H [facility]woodKnxaifmEMLTRACSNP2421-97-65 20:00:00 Test Item Value Reference Range Interpretation Comments Platelet (test code = Platelet) 161 133-450 N [facility]woodNzhjoyrAFPPRVQHAF7564-49-19 20:00:00 Test Item Value Reference Range Interpretation Comments MCHC (test code = MCHC) 35.6 32.0-36.0 N [facility]woodVzojnxjFGSICVDZDB1155-74-93 20:00:00 Test Item Value Reference Range Interpretation Comments RDW (test code = RDW) 12.4 11.5-14.5 N [facility]woodMxxzwmzRTLQXMZMSB4570-12-15 20:00:00 Test Item Value Reference Range Interpretation Comments MCH (test code = MCH) 30.7 pg 27.0-31.0 N [facility]woodJkmsxhzPLDYMDOWZF8735-77-73 20:00:00 Test Item Value Reference Range Interpretation Comments MCV (test code = MCV) 86.1 81.0-99.0 N [facility]woodJzfrusuULTCNQBZCR4882-55-83 20:00:00 Test Item Value Reference Range Interpretation Comments Hct (test code = Hct) 33.6 36.0-48.0 L [facility]woodPxrmufoPSWSJGVQHT0268-93-96 20:00:00 Test Item Value Reference Range Interpretation Comments Hgb (test code = Hgb) 12.0 12.0-16.0 N [facility]woodXbdupewBITANAKYVU4669-82-02 20:00:00 Test Item Value Reference Range Interpretation Comments RBC (test code = RBC) 3.90 4.20-5.40 L [facility]woodWyhkwdrLZGOTAMLGF2031-08-97 20:00:00 Test Item Value Reference Range Interpretation Comments WBC (test code = WBC) 6.6 3.7-10.[address] [facility] CenterJfqckgkHVBJRZBTV8198-98-97 19:51:00 Test Item Value Reference Range Interpretation Comments UDS Note (test code = See Note UDS Note) 5*NA*(11/28/2011 14:51:00) [facility] CenterOqivwbkMLWBTEVUS1542-21-94 19:51:00 Test Item Value Reference Range Interpretation Comments U Phencyc Scr (test Negative code = U Phencyc Scr) *NA*(11/28/2011 14:51:00) [facility] CenterCumbvvxXHOXTTHWD7980-24-94 19:51:00 Test Item Value Reference Range Interpretation Comments U Kelly Scr (test code Negative *NA*(11/28/2011 = U Kelly Scr) 14:51:00) [facility] CenterVgdqmkvEEDKEDXCQ1823-18-10 19:51:00 Test Item Value Reference Range Interpretation Comments U Amph Scr (test code Negative *NA*(11/28/2011 = U Amph Scr) 14:51:00) [facility] CenterUbldchlWTUZROSID2896-19-35 19:51:00 Test Item Value Reference Range Interpretation Comments U Opiate Scr (test Negative code = U Opiate Scr) *NA*(11/28/2011 14:51:00) [facility] CenterLedvbzzYUCFOJAKI5258-00-18 19:51:00 Test Item Value Reference Range Interpretation Comments U Cocaine Scr (test Negative code = U Cocaine Scr) *NA*(11/28/2011 14:51:00) [facility] CenterFcnhoapMSHGCIACJ2974-65-15 19:51:00 Test Item Value Reference Range Interpretation Comments U Cannab Scr (test Negative code = U Cannab Scr) *NA*(11/28/2011 14:51:00) [facility] CenterXgkksvzTOSVHPWAO5850-31-50 19:51:00 Test Item Value Reference Range Interpretation Comments U Benzodia Scr (test Negative code = U Benzodia Scr) *NA*(11/28/2011 14:51:00) [facility] GLUCOSE EUVJCFJ1182-48-64 16:20:00 Test Item Value Reference Range Interpretation Comments Comment1 (test code = Comment1) Ravi MAYS/ [facility] GLUCOSE OIOCNZL8336-60-67 16:20:00 Test Item Value Reference Range Interpretation Comments Gluc POC Lifscn (test code = Gluc POC 328 70-99 H Lifscn) [facility] CenterYeohpirPPSRQHYVJ6864-07-36 15:30:00 Test Item Value Reference Range Interpretation Comments U Preg (test code = U Negative (09/18/2011 N Preg) 10:30:00) [facility]HuqhskfVTEGLVIRHZ1675-35-95 15:30:00 Test Item Value Reference Range Interpretation Comments UA WBC (test code = UA None Seen (09/18/2011 N WBC) 10:30:00) [facility]bhgkxPKZJXFMMFW1016-[facility] 15:30:00 Test Item Value Reference Range Interpretation Comments UA RBC (test None Seen See_Comment N [Automated mes pastor] code = UA RBC) (09/18/2011 The system [employer] ich 10:30:00) generated this result transmitted ref erence range: <=2. The reference range was not used to int erpret this result as normal/abnormal . [facility] HospitalQxqbitlHDYKIHPRCV8890-55-12 15:30:00 Test Item Value Reference Range Interpretation Comments UA Bacteria (test code = None Seen (09/18/2011 N UA Bacteria) 10:30:00) [facility] HospitalTsjptnrCHAOKXKDYR4286-52-08 15:30:00 Test Item Value Reference Range Interpretation Comments UA Amorph Destiny (test Few /HPF A code = UA Amorph Destiny) *ABN*(09/18/2011 10:30:00) [facility] CenterMttlaxjRTHVJYKGGH8276-44-31 15:30:00 Test Item Value Reference Range Interpretation Comments Micro? (test code = Performed (09/18/2011 N Micro?) 10:30:00) [facility] HospitalApiuypgODDEJHTFDA8302-87-80 15:30:00 Test Item Value Reference Range Interpretation Comments UA Sq Epi (test code = Rare /LPF (09/18/2011 N UA Sq Epi) 10:30:00) [facility] CenterLljajwpMZEKERMNRI1512-67-53 15:30:00 Test Item Value Reference Range Interpretation Comments UA Ketones (test code = 15 mg/dL A UA Ketones) *ABN*(09/18/2011 10:30:00) [facility] CenterFjtgqkcPERUEFYAIQ7474-55-10 15:30:00 Test Item Value Reference Range Interpretation Comments UA Glucose (test code = >=1000 mg/dL A UA Glucose) *ABN*(09/18/2011 10:30:00) [facility] CenterJqfkjziSIHMHEVPMN4549-18-45 15:30:00 Test Item Value Reference Range Interpretation Comments UA Protein (test code = Trace A UA Protein) *ABN*(09/18/2011 10:30:00) [facility] CenterDtligygFMEOXZXGJU3704-12-52 15:30:00 Test Item Value Reference Range Interpretation Comments UA Urobilinogen (test code = UA 0.2 0.1-1.0 N Urobilinogen) [facility] CenterLnalxvjXZKZJJVKIO0542-38-93 15:30:00 Test Item Value Reference Range Interpretation Comments UA Blood (test code = Negative (09/18/2011 N UA Blood) 10:30:00) [facility]JuflnazHLYDCWCGUQ9938-97-15 15:30:00 Test Item Value Reference Range Interpretation Comments UA Bili (test code = Negative *NA*(09/18/2011 UA Bili) 10:30:00) [facility] CenterSkrexxySWDIMXSDDF7406-82-86 15:30:00 Test Item Value Reference Range Interpretation Comments UA Leuk Est (test Negative (09/18/2011 N code = UA Leuk Est) 10:30:00) [facility]landsGfzemztAIVYPALYJD0992-15-18 15:30:00 Test Item Value Reference Range Interpretation Comments UA Nitrite (test code Negative (09/18/2011 N = UA Nitrite) 10:30:00) [facility] CenterTiomekfTHBQMFVOOF3382-35-35 15:30:00 Test Item Value Reference Range Interpretation Comments UA pH (test code = UA pH) 7.5 1 5.0-8.0 N [facility] CenterDgamselTFYLCFVVSO2396-90-46 15:30:00 Test Item Value Reference Range Interpretation Comments UA Spec Grav (test code = UA Spec 1.010 1 N Grav) [facility] CenterWgudvdeIHLNUGXERX1255-98-25 15:30:00 Test Item Value Reference Range Interpretation Comments UA Turbidity (test code Slight Cloudy N = UA Turbidity) (09/18/2011 10:30:00) [facility] CenterIgyacaqOSKUCKAYJU1028-60-56 15:30:00 Test Item Value Reference Range Interpretation Comments UA Color (test code = Yellow *NA*(09/18/2011 UA Color) 10:30:00) [facility]landsSprthlxGZMJRPWCP1235-70-57 14:07:00 Test Item Value Reference Range Interpretation Comments Phosphorus (test code = Phosphorus) 4.4 2.5-4.[address] [facility] CenterTrwryogDKJYUGRUW9141-12-85 14:07:00 Test Item Value Reference Range Interpretation Comments Magnesium Lvl (test code = Magnesium 1.6 1.8-2.4 L Lvl) [facility] GLUCOSE NODDTLE6374-21-07 14:01:00 Test Item Value Reference Range Interpretation Comments Gluc POC Lifscn (test code = Gluc POC no gt 70-99 A Lifscn) [facility] CenterOvyrqzxKDPZUTJED9425-84-27 13:52:00 Test Item Value Reference Range Interpretation Comments pO2 Roberth (test code = pO2 Roberth) 24 20-[address] [facility] CenterEdewxujNOZTJGQLS4965-20-92 13:52:00 Test Item Value Reference Range Interpretation Comments HCO3 Roberth (test code = HCO3 Roberth) 32.0 22.0-26.[address] [facility] CenterMswjnkaGPEYEDUGQ2120-93-20 13:52:00 Test Item Value Reference Range Interpretation Comments pCO2 Roberth (test code = pCO2 Roberth) 44 38-[address] [facility] CenterLwfqgptISMYMWCGS7479-29-09 13:52:00 Test Item Value Reference Range Interpretation Comments BE Roberth (test code = 7 See_Comment H [Automa rohit message] The BE Roberth) system which ge nerated this result transmit rohit reference range : <=2. The reference range was not used to interpr et this result as reji l/abnormal. [facility] CenterRowrjgoOSGOYCAEH4460-44-94 13:52:00 Test Item Value Reference Range Interpretation Comments O2 Sat Roberth (test code = O2 Sat Roberth) 48.0 40.0-70.[address] [facility] CenterGgvcsrzZMMJBTQXN5741-57-49 13:52:00 Test Item Value Reference Range Interpretation Comments Temp Roberth (test code = Temp Roberth) 37.0 [facility] CenterOhdxrblLMGRFHWVN4882-44-13 13:52:00 Test Item Value Reference Range Interpretation Comments pH Roberth (test code = pH Roberth) 7.47 7.28-7.[address] [facility] CenterAfaazbwVQPFWNRHF0159-72-89 13:52:00 Test Item Value Reference Range Interpretation Comments Calcium Lvl (test code = Calcium Lvl) 10.1 8.5-10.[address] [facility] CenterBjjpckeNQQQXHPZK5307-17-63 13:52:00 Test Item Value Reference Range Interpretation Comments Chloride Lvl (test code = Chloride Lvl) 92 95-[address] [facility] CenterKtmasknLAJNSBNCA6926-49-57 13:52:00 Test Item Value Reference Range Interpretation Comments CO2 (test code = CO2) 30 24-[address] [facility] CenterDdmxjarRJIKAMVOP3647-89-39 13:52:00 Test Item Value Reference Range Interpretation Comments Potassium Lvl (test code = Potassium 3.5 3.5-5.1 N Lvl) [facility] CenterFiuogeiKHWGLHTDY0282-14-91 13:52:00 Test Item Value Reference Range Interpretation Comments Sodium Lvl (test code = Sodium Lvl) 133 135-[address] [facility] [facility] CenterYsubpgaIFZYZHHXU6130-92-18 13:52:00 Test Item Value Reference Range Interpretation Comments Creatinine Lvl (test code = Creatinine 1.3 0.5-1.4 N Lvl) [facility] CenterZiagluzSMRFMJOOR7775-92-38 13:52:00 Test Item Value Reference Range Interpretation Comments Glucose Lvl (test code = Glucose Lvl) 383 70-[address] [facility] CenterZxaxaaoQPTQDDCVJ4428-23-04 13:52:00 Test Item Value Reference Range Interpretation Comments BUN (test code = BUN) 17 7-[address] [facility] CenterWqraofhTOCXMFVWO3419-07-01 13:52:00 Test Item Value Reference Range Interpretation Comments AGAP (test code = AGAP) 14.5 10.0-20.0 N [facility]woodOslwxwpSQSAPTMZUP3919-83-70 13:52:00 Test Item Value Reference Range Interpretation Comments MPV (test code = MPV) 12.0 7.4-10.4 H [facility]woodTvzpivvVXSNGUCMJF1318-70-06 13:52:00 Test Item Value Reference Range Interpretation Comments Platelet (test code = Platelet) 226 133-450 N [facility]woodQfbxejnYCYAKQJKCD3850-39-81 13:52:00 Test Item Value Reference Range Interpretation Comments MCHC (test code = MCHC) 33.7 32.0-36.0 N [facility]woodUbrqjhkEGHJVMWGRB1704-46-03 13:52:00 Test Item Value Reference Range Interpretation Comments MCH (test code = MCH) 28.5 pg 27.0-31.0 N [facility]woodTzptcltQQFQPLQOPA9252-32-55 13:52:00 Test Item Value Reference Range Interpretation Comments RDW (test code = RDW) 15.1 11.5-14.5 H [facility]woodHajblycJSHQHPNAIC4338-84-83 13:52:00 Test Item Value Reference Range Interpretation Comments MCV (test code = MCV) 84.6 81.0-99.0 N [facility]woodJtkiasoKAAXBRUNOX0751-73-91 13:52:00 Test Item Value Reference Range Interpretation Comments Hct (test code = Hct) 36.4 36.0-48.0 N [facility]woodYqwmbhiCEMBPUHXAN5134-84-77 13:52:00 Test Item Value Reference Range Interpretation Comments Hgb (test code = Hgb) 12.3 12.0-16.0 N [facility]woodZhqnoqwNTXZDSVPOM4424-53-63 13:52:00 Test Item Value Reference Range Interpretation Comments RBC (test code = RBC) 4.30 4.20-5.40 N [facility]woodBhssnurXMCGNEIZTF6422-92-02 13:52:00 Test Item Value Reference Range Interpretation Comments WBC (test code = WBC) 11.7 3.7-10.4 H [facility]woodNjpbpgvTDHRTMHCQV9705-20-45 13:52:00 Test Item Value Reference Range Interpretation Comments Monocytes (test code = Monocytes) 2.9 2.0-12.0 N [facility]woodUurustuCHQITIMNKX5326-62-44 13:52:00 Test Item Value Reference Range Interpretation Comments Eosinophils (test code = 0.2 See_Comment N [A utomated message] The Eosinophils) system which ge nerated this result tra nsmitted reference range : <=4.0. The reference r leo was not used to int erpret this result as normal/abnormal . [facility]woodBtkwfjlYLYXIOGZYI5488-45-87 13:52:00 Test Item Value Reference Range Interpretation Comments Basophils (test code = 0.0 See_Comment N [Aut omated message] The Basophils) system which ge nerated this result tra nsmitted reference range : <=1.0. The reference r leo was not used to int erpret this result as normal/abnormal . [facility]woodMtkoxahCSQRHWOLRX6696-58-43 13:52:00 Test Item Value Reference Range Interpretation Comments Eosinophils # (test code 0.0 See_Comment N [A utomated message] The = Eosinophils #) system whic h generated this result tra nsmitted reference range : <=0.5. The reference r leo was not used to int erpret this result as normal/abnormal . [facility]woodYjwibzdRHOQLQBBCM1509-63-35 13:52:00 Test Item Value Reference Range Interpretation Comments Monocytes # (test code 0.3 See_Comment N [Aut omated message] The = Monocytes #) system which generated this result tra nsmitted reference range : <=0.8. The reference r leo was not used to int erpret this result as normal/abnormal . [facility]woodKglknfxGBVWYVLPLN1373-05-53 13:52:00 Test Item Value Reference Range Interpretation Comments Segs (test code = Segs) 92.0 45.0-75.0 H [facility]woodYkuwprtHQYWSFLBNE9034-98-40 13:52:00 Test Item Value Reference Range Interpretation Comments Lymphocytes (test code = Lymphocytes) 4.9 20.0-40.0 L [facility]woodCjwiqalZQYCUIMGLY7672-39-59 13:52:00 Test Item Value Reference Range Interpretation Comments Spherocyte (test code = Rare A Spherocyte) *ABN*(09/18/2011 08:52:00) [facility]woodRbywfylKETMMDQYTC5122-17-93 13:52:00 Test Item Value Reference Range Interpretation Comments Large Plt (test code = Slight *ABN*(09/18/2011 A Large Plt) 08:52:00) [facility]woodExnwfiaUATEBTWSIS6921-49-47 13:52:00 Test Item Value Reference Range Interpretation Comments Microcyte (test code = 1+ *ABN*(09/18/2011 A Microcyte) 08:52:00) [facility]woodCdtjgulIWXDNSQBRF1646-52-70 13:52:00 Test Item Value Reference Range Interpretation Comments Schistocyte (test code = Schistocyte) Rare [facility]woodDeaogafDURYRVHURR2087-23-38 13:52:00 Test Item Value Reference Range Interpretation Comments Macrocyte (test code = 1+ *ABN*(09/18/2011 A Macrocyte) 08:52:00) [facility]woodUtqqjfkGMMZGCGONU8685-96-95 13:52:00 Test Item Value Reference Range Interpretation Comments Lymphocytes # (test code = Lymphocytes 0.6 1.0-5.5 L #) [facility]woodOkgzerwASSYXGZQQW4313-76-17 13:52:00 Test Item Value Reference Range Interpretation Comments Segs-Bands # (test code = Segs-Bands #) 10.8 1.5-8.1 H [facility]woodTlrkdbqPPTHIYKIVL6112-34-37 13:52:00 Test Item Value Reference Range Interpretation Comments Basophils # (test code 0.0 See_Comment N [Aut omated message] The = Basophils #) system which generated this result tra nsmitted reference range : <=0.2. The reference r leo was not used to int erpret this result as normal/abnormal . [facility]landsKgewjgcRUPTQEGKKY4937-98-15 13:52:00 Test Item Value Reference Range Interpretation Comments Anisocyte (test code = 1+ *ABN*(09/18/2011 A Anisocyte) 08:52:00) [facility]PzjokytHSSUVSNIKF3214-18-[facility] 13:52:00 Test Item Value Reference Range Interpretation Comments CDC-HIV 1/2 Ab (test Negative *NA*(09/18/2011 code = CDC-HIV 1/2 08:52:00) Ab) [facility] GLUCOSE TIHTXLA8722-94-94 17:34:00 Test Item Value Reference Range Interpretation Comments Gluc POC Lifscn (test code = Gluc POC 215 70-99 H Lifscn) [facility] GLUCOSE VLDCHLN2876-42-65 17:34:00 Test Item Value Reference Range Interpretation Comments Comment1 (test code = Comment1) Notify RN/ [facility] GLUCOSE NDPSVUS2603-70-54 11:43:00 Test Item Value Reference Range Interpretation Comments Comment1 (test code = Comment1) Notify RN/ [facility] GLUCOSE WJMAXFI5866-37-40 11:43:00 Test Item Value Reference Range Interpretation Comments Gluc POC Lifscn (test code = Gluc POC 91 65-110 N Lifscn) [facility] GLUCOSE QDITAFR6237-14-32 02:45:00 Test Item Value Reference Range Interpretation Comments Comment1 (test code = Comment1) Notify RN/ [facility] GLUCOSE CCASSDP7890-65-59 02:45:00 Test Item Value Reference Range Interpretation Comments Gluc POC Lifscn (test code = Gluc POC 148 65-110 H Lifscn) [facility]landsAtpueieMXLVNYLLD9397-92-66 08:47:00 Test Item Value Reference Range Interpretation Comments Sodium Lvl (test code = Sodium Lvl) 143 135-145 N [facility] CenterSstxvklTPPOCMOMZ1148-14-05 08:47:00 Test Item Value Reference Range Interpretation Comments Glucose Lvl (test code = Glucose Lvl) 105 [facility] CenterBgrwdknEQKHDVOYV8715-51-43 08:47:00 Test Item Value Reference Range Interpretation Comments CO2 (test code = CO2) 29 24-[address] [facility] CenterEbcdbufEZXAHJWVA1761-81-18 08:47:00 Test Item Value Reference Range Interpretation Comments Chloride Lvl (test code = Chloride Lvl) 103 95-[address] [facility] CenterQwsawiyTVUCAFGSO5690-23-37 08:47:00 Test Item Value Reference Range Interpretation Comments BUN (test code = BUN) 10 7-[address] [facility] CenterImbuzvfWNBTYHUUM4110-59-57 08:47:00 Test Item Value Reference Range Interpretation Comments Potassium Lvl (test code = Potassium 3.8 3.5-5.1 N Lvl) [facility] CenterXmnyvvjWZMXJJXUD9150-50-95 08:47:00 Test Item Value Reference Range Interpretation Comments Creatinine Lvl (test code = Creatinine 0.6 0.5-1.4 N Lvl) [facility] CenterOxtdeyxVJMHBNKFO0470-02-69 08:47:00 Test Item Value Reference Range Interpretation Comments Calcium Lvl (test code = Calcium Lvl) 8.5 8.5-10.[address] [facility] CenterOxsotwyBGRPJUXJB6622-78-70 08:47:00 Test Item Value Reference Range Interpretation Comments AGAP (test code = AGAP) 14.8 10.0-20.0 N [facility]woodVtykbshCYGKYYPPWV4734-46-46 08:47:00 Test Item Value Reference Range Interpretation Comments MCH (test code = MCH) 28.9 pg 27.0-31.0 N [facility]woodAqiqvrzTSJMIKIVBE8647-39-36 08:47:00 Test Item Value Reference Range Interpretation Comments MCV (test code = MCV) 82.1 81.0-99.0 N [facility]woodQwhlywvFYWEJDQBAY5824-94-12 08:47:00 Test Item Value Reference Range Interpretation Comments Hct (test code = Hct) 25.9 36.0-48.0 L [facility]woodKipxqafCJFSDJEZRL1237-75-02 08:47:00 Test Item Value Reference Range Interpretation Comments Platelet (test code = Platelet) 233 133-450 N [facility]woodTwniqhbJFZQIQYFTI4948-31-90 08:47:00 Test Item Value Reference Range Interpretation Comments RDW (test code = RDW) 14.5 11.5-14.5 N [facility]woodCiejqaaVQRXIPQZQF1373-37-37 08:47:00 Test Item Value Reference Range Interpretation Comments MCHC (test code = MCHC) 35.2 32.0-36.0 N [facility]woodHbjvbkaXVYFGJNJQO5241-97-78 08:47:00 Test Item Value Reference Range Interpretation Comments Hgb (test code = Hgb) 9.1 12.0-16.0 L [facility]woodTfgetouOYGUBPMKGU8268-29-38 08:47:00 Test Item Value Reference Range Interpretation Comments RBC (test code = RBC) 3.15 4.20-5.40 L [facility]woodDljishdBUYBEQSYVB6279-65-73 08:47:00 Test Item Value Reference Range Interpretation Comments MPV (test code = MPV) 9.0 7.4-10.4 N [facility]woodUxxspdxMFQGAAILHN8870-47-78 08:47:00 Test Item Value Reference Range Interpretation Comments WBC (test code = WBC) 6.3 3.7-10.4 N [facility]woodHdykyouSMGHUIHDWR2712-65-35 08:47:00 Test Item Value Reference Range Interpretation Comments Eosinophils # (test code 0.0 See_Comment N [A utomated message] The = Eosinophils #) system whic h generated this result tra nsmitted reference range : <=0.5. The reference r leo was not used to int erpret this result as normal/abnormal . [facility] [facility]OrseafhAKMOOBBTIB2042-77-67 08:47:00 Test Item Value Reference Range Interpretation Comments Basophils # (test code 0.0 See_Comment N [Aut omated message] The = Basophils #) system which generated this result tra nsmitted reference range : <=0.2. The reference r leo was not used to int erpret this result as normal/abnormal . [facility]QejakhaJIOLCNSJPN0984-70-14 08:47:00 Test Item Value Reference Range Interpretation Comments Segs-Bands # (test code = Segs-Bands #) 3.8 1.5-8.1 N [facility]woodDhlfddeIAWOPGUKQT1572-34-69 08:47:00 Test Item Value Reference Range Interpretation Comments Lymphocytes # (test code = Lymphocytes 2.0 1.0-5.5 N #) [facility]woodZwbjnfyQTLKKTCJUG3978-21-07 08:47:00 Test Item Value Reference Range Interpretation Comments Basophils (test code = 0.5 See_Comment N [Aut omated message] The Basophils) system which ge nerated this result tra nsmitted reference range : <=1.0. The reference r leo was not used to int erpret this result as normal/abnormal . [facility]woodSkxjzeuVGODVCWAMT0099-39-50 08:47:00 Test Item Value Reference Range Interpretation Comments Eosinophils (test code = 0.7 See_Comment N [A utomated message] The Eosinophils) system which ge nerated this result tra nsmitted reference range : <=4.0. The reference r leo was not used to int erpret this result as normal/abnormal . [facility]woodWbrmqerRAYNFWGGNL0719-72-90 08:47:00 Test Item Value Reference Range Interpretation Comments Monocytes (test code = Monocytes) 6.2 2.0-12.0 N [facility]woodGwihkrrDYHDBSERNQ3447-00-51 08:47:00 Test Item Value Reference Range Interpretation Comments Segs (test code = Segs) 61.1 45.0-75.0 N [facility]woodAfcsxucWFEOLPARMK1286-13-20 08:47:00 Test Item Value Reference Range Interpretation Comments Lymphocytes (test code = Lymphocytes) 31.5 20.0-40.0 N [facility]woodZbubimbOKSGGFMFGN9481-40-44 08:47:00 Test Item Value Reference Range Interpretation Comments Monocytes # (test code 0.4 See_Comment N [Aut omated message] The = Monocytes #) system which generated this result tra nsmitted reference range : <=0.8. The reference r leo was not used to int erpret this result as normal/abnormal . [facility] CenterAryzwvvYZFWJBUPL9893-17-56 10:54:00 Test Item Value Reference Range Interpretation Comments CO2 (test code = CO2) 27 24-[address] [facility] CenterGshejjjROWDJZISA4249-84-57 10:54:00 Test Item Value Reference Range Interpretation Comments Chloride Lvl (test code = Chloride Lvl) 104 95-[address] [facility] CenterEfcsdyuXXCGPKDPR1513-00-52 10:54:00 Test Item Value Reference Range Interpretation Comments Creatinine Lvl (test code = Creatinine 0.5 0.5-1.4 N Lvl) [facility] CenterLtpebafLHMCOUNXN3049-82-91 10:54:00 Test Item Value Reference Range Interpretation Comments BUN (test code = BUN) 10 7-[address] [facility] CenterDfvololQZQHWTWOH5095-75-71 10:54:00 Test Item Value Reference Range Interpretation Comments Potassium Lvl (test code = Potassium 4.1 3.5-5.1 N Lvl) [facility] CenterRqmnfcyZNZFKDARL3700-83-20 10:54:00 Test Item Value Reference Range Interpretation Comments Sodium Lvl (test code = Sodium Lvl) 141 135-[address] [facility] CenterVoldvdnHYTTWAJKP6059-55-08 10:54:00 Test Item Value Reference Range Interpretation Comments Glucose Lvl (test code = Glucose Lvl) 83 [facility] CenterGauzseeUQPBIIHHH3630-17-44 10:54:00 Test Item Value Reference Range Interpretation Comments Calcium Lvl (test code = Calcium Lvl) 8.4 8.5-10.[address] [facility] CenterJzkrqowWGBBRVRXR8998-36-97 10:54:00 Test Item Value Reference Range Interpretation Comments AGAP (test code = AGAP) 14.1 10.0-20.0 N [facility]woodFhpxairKMFZHFBWTU9636-47-03 10:54:00 Test Item Value Reference Range Interpretation Comments Hct (test code = Hct) 35.5 36.0-48.0 L [facility]woodPmaeaxjUTFKYDHCOZ5951-41-25 10:54:00 Test Item Value Reference Range Interpretation Comments WBC (test code = WBC) 4.7 3.7-10.4 N [facility]woodDiyawwaNIFZRZBONK8932-59-68 10:54:00 Test Item Value Reference Range Interpretation Comments MCV (test code = MCV) 92.6 81.0-99.0 N [facility]woodKwizqapSIQFZKMOZY9145-58-22 10:54:00 Test Item Value Reference Range Interpretation Comments MCH (test code = MCH) 31.4 pg 27.0-31.0 H [facility]woodPwzhgktUECFVWDRGN9811-06-28 10:54:00 Test Item Value Reference Range Interpretation Comments RBC (test code = RBC) 3.84 4.20-5.40 L [facility]woodQnzqsiuWCHYQGFHNA4024-23-23 10:54:00 Test Item Value Reference Range Interpretation Comments Hgb (test code = Hgb) 12.1 12.0-16.0 N [facility]woodUubxonmRQKPWRRXXY0155-95-74 10:54:00 Test Item Value Reference Range Interpretation Comments Platelet (test code = Platelet) 287 133-450 N [facility]woodWjyvanbQIHUVCXGBU7920-92-10 10:54:00 Test Item Value Reference Range Interpretation Comments RDW (test code = RDW) 12.7 11.5-14.5 N [facility]woodDawuwxeTRTJNRDKIJ5051-40-50 10:54:00 Test Item Value Reference Range Interpretation Comments MCHC (test code = MCHC) 33.9 32.0-36.0 N [facility]woodHvbibhuLIFYVURTNR7565-12-50 10:54:00 Test Item Value Reference Range Interpretation Comments MPV (test code = MPV) 7.2 7.4-10.4 L [facility]woodMeyzeibWQXUELUOYH4300-47-28 10:54:00 Test Item Value Reference Range Interpretation Comments INR (test code = INR) 0.95 0.85-1.17 N [facility]woodEitdqqcBSZWGCWALB5619-20-34 10:54:00 Test Item Value Reference Range Interpretation Comments PT (test code = PT) 12.7 s 12.0-14.7 N [facility]woodCfitisoKWFWSRXKFM1809-10-03 10:54:00 Test Item Value Reference Range Interpretation Comments PTT (test code = PTT) 28.5 s 22.9-35.8 N [facility]woodEvqedduACJTIPJYDX9857-68-36 10:54:00 Test Item Value Reference Range Interpretation Comments Eosinophils # (test code 0.1 See_Comment N [A utomated message] The = Eosinophils #) system whic h generated this result tra nsmitted reference range : <=0.5. The reference r leo was not used to int erpret this result as normal/abnormal . [facility]woodJuhfvjdNIWGAFDFRD6115-33-99 10:54:00 Test Item Value Reference Range Interpretation Comments Basophils # (test code 0.0 See_Comment N [Aut omated message] The = Basophils #) system which generated this result tra nsmitted reference range : <=0.2. The reference r leo was not used to int erpret this result as normal/abnormal . [facility]woodAzzbszdLOMOZKYGDU7002-11-54 10:54:00 Test Item Value Reference Range Interpretation Comments Basophils (test code = 0.4 See_Comment N [Aut omated message] The Basophils) system which ge nerated this result tra nsmitted reference range : <=1.0. The reference r leo was not used to int erpret this result as normal/abnormal . [facility]woodOnedopiNLKBGAHYGR0488-80-87 10:54:00 Test Item Value Reference Range Interpretation Comments Segs-Bands # (test code = Segs-Bands #) 2.1 1.5-8.1 N [facility]woodCiahxrjWGDZIQAPDR7977-05-51 10:54:00 Test Item Value Reference Range Interpretation Comments Monocytes (test code = Monocytes) 9.0 2.0-12.0 N [facility]woodFoijcaoPXQGJRPWPT3645-10-48 10:54:00 Test Item Value Reference Range Interpretation Comments Eosinophils (test code = 2.4 See_Comment N [A utomated message] The Eosinophils) system which ge nerated this result tra nsmitted reference range : <=4.0. The reference r leo was not used to int erpret this result as normal/abnormal . [facility]woodZaylbpjWITRRSVYKQ5268-67-96 10:54:00 Test Item Value Reference Range Interpretation Comments Monocytes # (test code 0.4 See_Comment N [Aut omated message] The = Monocytes #) system which generated this result tra nsmitted reference range : <=0.8. The reference r leo was not used to int erpret this result as normal/abnormal . [facility]woodDltmibxMFGDKHQVGQ0005-98-14 10:54:00 Test Item Value Reference Range Interpretation Comments Lymphocytes # (test code = Lymphocytes 2.0 1.0-5.5 N #) [facility]woodPacmiisCPQUFYQLRY2795-66-79 10:54:00 Test Item Value Reference Range Interpretation Comments Lymphocytes (test code = Lymphocytes) 42.8 20.0-40.0 H [facility]woodVothwdhRJKCMMDUIE9198-82-96 10:54:00 Test Item Value Reference Range Interpretation Comments Segs (test code = Segs) 45.4 45.0-75.[address] [facility] CenterUxpttteOICXJKEGU6716-39-32 10:02:00 Test Item Value Reference Range Interpretation Comments Chloride Lvl (test code = Chloride Lvl) 105 95-[address] [facility] CenterBjncqyoXQHQKNVDK5842-78-04 10:02:00 Test Item Value Reference Range Interpretation Comments Potassium Lvl (test code = Potassium 4.1 3.5-5.1 N Lvl) [facility] CenterGtehxhtFNRDNBXQZ7648-38-07 10:02:00 Test Item Value Reference Range Interpretation Comments Sodium Lvl (test code = Sodium Lvl) 143 135-[address] [facility] [facility] CenterDofqmlbDNSUVIDIL3206-70-32 10:02:00 Test Item Value Reference Range Interpretation Comments CO2 (test code = CO2) 29 24-[address] [facility] [facility] CenterOlerndnLNJRMUDGO3106-45-54 10:02:00 Test Item Value Reference Range Interpretation Comments Calcium Lvl (test code = Calcium Lvl) 8.7 8.5-10.[address] [facility] CenterIwdrpmxDWRXNCASR0669-09-95 10:02:00 Test Item Value Reference Range Interpretation Comments BUN (test code = BUN) 6 7-[address] [facility] CenterEqurhwxSPZEEADWP7792-46-35 10:02:00 Test Item Value Reference Range Interpretation Comments Creatinine Lvl (test code = Creatinine 0.6 0.5-1.4 N Lvl) [facility] CenterVowjvxqYXXHMMKDF6783-55-06 10:02:00 Test Item Value Reference Range Interpretation Comments Glucose Lvl (test code = Glucose Lvl) 118 [facility] CenterUjoptlnRORAUVWPG3751-22-02 10:02:00 Test Item Value Reference Range Interpretation Comments AGAP (test code = AGAP) 13.1 10.0-20.0 N [facility]woodFonhganUMRFASRQUT4620-86-12 10:02:00 Test Item Value Reference Range Interpretation Comments Basophils # (test code 0.0 See_Comment N [Aut omated message] The = Basophils #) system which generated this result tra nsmitted reference range : <=0.2. The reference r leo was not used to int erpret this result as normal/abnormal . [facility]woodXlqmpzfVSXPHUCUMV1225-36-59 10:02:00 Test Item Value Reference Range Interpretation Comments Monocytes # (test code 0.3 See_Comment N [Aut omated message] The = Monocytes #) system which generated this result tra nsmitted reference range : <=0.8. The reference r leo was not used to int erpret this result as normal/abnormal . [facility]woodYslvlnsWLECXFEDES8822-36-59 10:02:00 Test Item Value Reference Range Interpretation Comments Eosinophils # (test code 0.1 See_Comment N [A utomated message] The = Eosinophils #) system whic h generated this result tra nsmitted reference range : <=0.5. The reference r leo was not used to int erpret this result as normal/abnormal . [facility]woodUjngcgcSFVBTVBCDQ5574-52-52 10:02:00 Test Item Value Reference Range Interpretation Comments Segs-Bands # (test code = Segs-Bands #) 2.8 1.5-8.1 N [facility]woodEetapmlLFVPCLMPKL4644-41-62 10:02:00 Test Item Value Reference Range Interpretation Comments Lymphocytes # (test code = Lymphocytes 1.7 1.0-5.5 N #) [facility]woodNzztjzaXGPSXXZCUE3544-18-39 10:02:00 Test Item Value Reference Range Interpretation Comments Basophils (test code = 0.6 See_Comment N [Aut omated message] The Basophils) system which ge nerated this result tra nsmitted reference range : <=1.0. The reference r leo was not used to int erpret this result as normal/abnormal . [facility]woodTuhzbqdUDLPGRHTXG2620-11-74 10:02:00 Test Item Value Reference Range Interpretation Comments Monocytes (test code = Monocytes) 6.9 2.0-12.0 N [facility]woodNnxlxusXAIPPZXUBX8786-33-09 10:02:00 Test Item Value Reference Range Interpretation Comments Eosinophils (test code = 2.0 See_Comment N [A utomated message] The Eosinophils) system which ge nerated this result tra nsmitted reference range : <=4.0. The reference r leo was not used to int erpret this result as normal/abnormal . [facility]woodNykcfjjGQVRJEQLYF7019-99-14 10:02:00 Test Item Value Reference Range Interpretation Comments Segs (test code = Segs) 55.8 45.0-75.0 N [facility]woodSvkboqmUXPZPDBXSQ2750-00-85 10:02:00 Test Item Value Reference Range Interpretation Comments Lymphocytes (test code = Lymphocytes) 34.7 20.0-40.0 N [facility]woodNpwzipbYSQPMTSPPE1493-72-84 10:02:00 Test Item Value Reference Range Interpretation Comments PTT (test code = PTT) 32.2 s 22.9-35.8 N [facility]woodUswijimUBKHQAIOFW3546-40-42 10:02:00 Test Item Value Reference Range Interpretation Comments PT (test code = PT) 13.3 s 12.0-14.7 N [facility]woodGzpyyhxYZKNSJUUTZ9431-52-87 10:02:00 Test Item Value Reference Range Interpretation Comments INR (test code = INR) 1.01 0.85-1.17 N [facility]woodIoijtufBSHQCXHRSZ3912-30-42 10:02:00 Test Item Value Reference Range Interpretation Comments Hct (test code = Hct) 27.5 36.0-48.0 L [facility]woodUyowdvrYZBOJMDZOO9011-75-08 10:02:00 Test Item Value Reference Range Interpretation Comments RBC (test code = RBC) 3.34 4.20-5.40 L [facility]woodAeccghfRKRPRLBLTZ6356-03-25 10:02:00 Test Item Value Reference Range Interpretation Comments Hgb (test code = Hgb) 9.7 12.0-16.0 L [facility]woodXwvlomvAVFWSMUEVN6635-67-31 10:02:00 Test Item Value Reference Range Interpretation Comments WBC (test code = WBC) 5.0 3.7-10.4 N [facility]woodRibfvlgFYIQQYDKUO5043-38-18 10:02:00 Test Item Value Reference Range Interpretation Comments MPV (test code = MPV) 9.2 7.4-10.4 N [facility]woodTjgbbemWHLYUCPHWJ4241-36-80 10:02:00 Test Item Value Reference Range Interpretation Comments Platelet (test code = Platelet) 240 133-450 N [facility]woodOqjcivqHSMIYBTCZH5103-37-33 10:02:00 Test Item Value Reference Range Interpretation Comments RDW (test code = RDW) 14.3 11.5-14.5 N [facility]woodWgignxhJJRXQHQGEW4314-65-33 10:02:00 Test Item Value Reference Range Interpretation Comments MCHC (test code = MCHC) 35.2 32.0-36.0 N [facility]woodPamzdoeLOXOAJSTEH0598-00-63 10:02:00 Test Item Value Reference Range Interpretation Comments MCH (test code = MCH) 28.9 pg 27.0-31.0 N [facility] KingwoodZfwjmxdHFAGGOPGTS2625-12-63 10:02:00 Test Item Value Reference Range Interpretation Comments MCV (test code = MCV) 82.1 81.0-99.[address] [facility] CenterIosdjeaUBBTEMQTC3299-50-58 09:24:00 Test Item Value Reference Range Interpretation Comments Magnesium Lvl (test code = Magnesium 2.1 1.8-2.4 N Lvl) [facility]EfwrbjuJyfpurequqkh1146-19-01 00:32:00 Test Item Value Reference Range Interpretation Comments Culture: Aspirate/Body Fluid/Tissue (test code = Culture: Aspirate/Body Fluid/Tissue) [facility] [place]SbpjnlsKghrsiohujze0107-37-89 00:32:00 Test Item Value Reference Range Interpretation Comments Culture: Anaerobic (test code = Culture: Anaerobic) [facility] CenterAxsukccTKIQOGIIN4589-91-24 17:10:00 Test Item Value Reference Range Interpretation Comments Temp Roberth (test code = Temp Roberth) 37.0 [facility] CenterFsewrobGPYASDUXJ8372-16-17 17:10:00 Test Item Value Reference Range Interpretation Comments O2 Sat Roberth (test code = O2 Sat Roberth) 27.0 40.0-70.[address] [facility] CenterQunldhlEHVANAOJV3275-59-73 17:10:00 Test Item Value Reference Range Interpretation Comments pCO2 Roberth (test code = pCO2 Roberth) 47 38-[address] [facility] CenterUyuxzxkGGWOKRESX5443-86-23 17:10:00 Test Item Value Reference Range Interpretation Comments pH Roberth (test code = pH Roberth) 7.37 7.28-7.[address] [facility] CenterQwtsqvnKUTKAUMXR4176-53-53 17:10:00 Test Item Value Reference Range Interpretation Comments BE Roberth (test code = 1 See_Comment N [Automa rohit message] The BE Roberth) system which ge nerated this result transmit rohit reference range : <=2. The reference range was not used to interpr et this result as reji l/abnormal. [facility] CenterRjimyqgNVOQDCLLX1851-92-18 17:10:00 Test Item Value Reference Range Interpretation Comments HCO3 Roberth (test code = HCO3 Roberth) 27.2 22.0-26.[address] [facility] CenterHyqirsjBKYCAGWCB3337-44-64 17:10:00 Test Item Value Reference Range Interpretation Comments pO2 Roberth (test code = pO2 Roberth) 19 20-49 L [facility] [place]ZnspjhxAgxtsxnkanrr3659-44-02 14:18:00 Test Item Value Reference Range Interpretation Comments Culture: Blood (test code = Culture: Blood) [facility]KdmgeimIksciefdafjj1013-58-55 14:18:00 Test Item Value Reference Range Interpretation Comments Culture: Wound/Abscess w/Gram Stain (test code = Culture: Wound/Abscess w/Gram Stain) [facility] CenterJeycpkrQLFHEYYCK5606-74-54 13:09:00 Test Item Value Reference Range Interpretation Comments Lactic Acid Lvl (test code = Lactic 1.0 0.5-2.2 N Acid Lvl) [facility] CenterDqhpbxuZSPQDTWGK8874-94-70 12:20:00 Test Item Value Reference Range Interpretation Comments U Preg (test code = U Negative (09/01/2011 N Preg) 07:20:00) [facility]JfwzmvtGZPRYUTZXM3003-34-00 12:20:00 Test Item Value Reference Range Interpretation Comments UA Sq Epi (test code Occasional /LPF N = UA Sq Epi) (09/01/2011 07:20:00) [facility] CenterBarmvssIJEOWRUNHZ2845-50-69 12:20:00 Test Item Value Reference Range Interpretation Comments UA Leuk Est (test Negative (09/01/2011 N code = UA Leuk Est) 07:20:00) [facility] CenterXwxtoirDYWIDYQXFO9294-56-98 12:20:00 Test Item Value Reference Range Interpretation Comments UA Nitrite (test code Negative (09/01/2011 N = UA Nitrite) 07:20:00) [facility] CenterVpxrjksUMIRLWWAIV4339-46-56 12:20:00 Test Item Value Reference Range Interpretation Comments UA Urobilinogen (test code = UA 0.2 0.1-1.0 N Urobilinogen) [facility] CenterKorybpwDILPHPZFND8380-28-38 12:20:00 Test Item Value Reference Range Interpretation Comments UA Blood (test code = Negative (09/01/2011 N UA Blood) 07:20:00) [facility] CenterCchbclhGGTWNAQLHB4931-28-34 12:20:00 Test Item Value Reference Range Interpretation Comments UA Ketones (test code = >=80 mg/dL A UA Ketones) *ABN*(09/01/2011 07:20:00[facility]tXSD[facility]ONDSZ0461[facility] 12:20:00 Test Item Value Reference Range Interpretation Comments UA Protein (test code Negative (09/01/2011 N = UA Protein) 07:20:00) [facility] CenterCvoemveQWYXMDOOLG4928-64-25 12:20:00 Test Item Value Reference Range Interpretation Comments UA pH (test code = UA pH) 6.0 1 5.0-8.0 N [facility] CenterCenckrvEQHAUEUBRI7713-79-23 12:20:00 Test Item Value Reference Range Interpretation Comments UA Bili (test code = Negative (09/01/2011 N UA Bili) 07:20:00) [facility] CenterCzzgcsaLGSGZAWXEM0037-02-05 12:20:00 Test Item Value Reference Range Interpretation Comments UA Glucose (test code = >=1000 mg/dL A UA Glucose) *ABN*(09/01/2011 07:20:00) [facility]MtedvhaRUDIIHITHP8484-65-50 12:20:00 Test Item Value Reference Range Interpretation Comments UA Spec Grav (test code = UA Spec 1.035 1 H Grav) [facility] CenterOlqivceKJOVBHJJTN0873-82-40 12:20:00 Test Item Value Reference Range Interpretation Comments UA Turbidity (test code = Clear (09/01/2011 N UA Turbidity) 07:20:00) [facility] CenterNvxwppqBDYRFMAOKX6062-49-07 12:20:00 Test Item Value Reference Range Interpretation Comments UA Color (test code = Yellow *NA*(09/01/2011 UA Color) 07:20:00) [facility] CenterMhhfsipHSIYIEGNO3724-51-37 08:00:00 Test Item Value Reference Range Interpretation Comments Lactic Acid Lvl (test code = Lactic 2.8 0.5-2.2 H Acid Lvl) [facility] CenterNorfvmwEDJCIWTNI6094-62-59 07:47:00 Test Item Value Reference Range Interpretation Comments Magnesium Lvl (test code = Magnesium 1.5 1.8-2.4 L Lvl) [facility]woodZqdzwxsDKSZOAPAJG3055-13-92 07:47:00 Test Item Value Reference Range Interpretation Comments Polychrom (test code = Slight (09/01/2011 N Polychrom) 02:47:00) [facility]woodKpnrjluVLNDUZHWJU5395-55-63 07:47:00 Test Item Value Reference Range Interpretation Comments Anisocyte (test code = 1+ *ABN*(09/01/2011 A Anisocyte) 02:47:00) [facility]woodCcdbshgYPNYKYXPIH0262-91-44 07:47:00 Test Item Value Reference Range Interpretation Comments Large Plt (test code = Slight *ABN*(09/01/2011 A Large Plt) 02:47:00) [facility]woodJibktybPYDHWODGMR8768-55-02 07:47:00 Test Item Value Reference Range Interpretation Comments Tear Cell (test code = Tear Cell) Occasional [facility]woodIyvatuqNHZPRHCFDB3452-04-53 07:47:00 Test Item Value Reference Range Interpretation Comments Elliptocyte (test code = Slight A Elliptocyte) *ABN*(09/01/2011 02:47:00) [facility] GLUCOSE WEWVQPZ4732-89-15 17:02:00 Test Item Value Reference Range Interpretation Comments Comment1 (test code = Comment1) Notify RN/MD [facility] GLUCOSE FOENVKK8481-73-78 17:02:00 Test Item Value Reference Range Interpretation Comments Gluc POC Lifscn (test code = Gluc POC 134 65-110 H Lifscn) [facility] GLUCOSE STYVVWB9681-79-16 13:45:00 Test Item Value Reference Range Interpretation Comments Gluc POC Lifscn (test code = Gluc POC 182 65-110 H Lifscn) [facility] GLUCOSE PSGPHSL0789-63-59 13:45:00 Test Item Value Reference Range Interpretation Comments Comment1 (test code = Comment1) [facility]ify RN/ [facility] CenterLfictyzFPKPVUUWN0158-21-44 10:22:00 Test Item Value Reference Range Interpretation Comments Phosphorus (test code = Phosphorus) 3.0 2.5-4.[address] [facility] CenterQutxrzbABRSJGAFE7554-63-87 10:22:00 Test Item Value Reference Range Interpretation Comments Magnesium Lvl (test code = Magnesium 1.8 1.8-2.4 N Lvl) [facility] CenterNzhhyebCOVTQYVJD0563-28-80 10:22:00 Test Item Value Reference Range Interpretation Comments Chloride Lvl (test code = Chloride Lvl) 107 95-[address] [facility] CenterDgvkevvMDPCIYIDD0380-32-12 10:22:00 Test Item Value Reference Range Interpretation Comments Potassium Lvl (test code = Potassium 3.0 3.5-5.1 A Lvl) [facility] CenterIalqryuAFSGGWOVJ5597-21-82 10:22:00 Test Item Value Reference Range Interpretation Comments Sodium Lvl (test code = Sodium Lvl) 141 135-[address] [facility] [facility] CenterJnjymjoNAKKYCMSY1179-88-82 10:22:00 Test Item Value Reference Range Interpretation Comments Creatinine Lvl (test code = Creatinine 0.6 0.5-1.4 N Lvl) [facility] CenterEmnzsvqKGYDDAELN9903-13-74 10:22:00 Test Item Value Reference Range Interpretation Comments CO2 (test code = CO2) 23 24-[address] [facility] CenterKgryssqRNCUIJPKI8513-61-20 10:22:00 Test Item Value Reference Range Interpretation Comments Calcium Lvl (test code = Calcium Lvl) 7.3 8.5-10.[address] CenterDwwduhqMOIGIUIRO4462-24-97 10:22:00 Test Item Value Reference Range Interpretation Comments Glucose Lvl (test code = Glucose Lvl) 136 [facility] CenterCefehobFGRALUHFO8905-35-16 10:22:00 Test Item Value Reference Range Interpretation Comments AGAP (test code = AGAP) 14.0 10.0-20.[address] [facility] CenterYjpqvwvZYSEMGNMK9167-53-80 10:22:00 Test Item Value Reference Range Interpretation Comments BUN (test code = BUN) 5 7-22 L [facility]woodDmgavngCFJRRLXGFF4652-37-12 10:22:00 Test Item Value Reference Range Interpretation Comments Segs (test code = Segs) 69.6 45.0-75.0 N [facility]woodVbxnlnsXVIQFQVLAQ3852-08-74 10:22:00 Test Item Value Reference Range Interpretation Comments Lymphocytes (test code = Lymphocytes) 21.5 20.0-40.0 N [facility]woodZsbydbnPVZDWBCCYE5388-28-03 10:22:00 Test Item Value Reference Range Interpretation Comments Monocytes (test code = Monocytes) 7.6 2.0-12.0 N [facility]woodVysxflhRWJOMUFGZV8377-86-51 10:22:00 Test Item Value Reference Range Interpretation Comments Eosinophils (test code = 1.0 See_Comment N [A utomated message] The Eosinophils) system which ge nerated this result tra nsmitted reference range : <=4.0. The reference r leo was not used to int erpret this result as normal/abnormal . [facility]woodPampcudIECLRFVNHK2747-22-15 10:22:00 Test Item Value Reference Range Interpretation Comments Basophils (test code = 0.3 See_Comment N [Aut omated message] The Basophils) system which ge nerated this result tra nsmitted reference range : <=1.0. The reference r leo was not used to int erpret this result as normal/abnormal . [facility]woodFwztodmFBZPCZYNGA8081-51-29 10:22:00 Test Item Value Reference Range Interpretation Comments Segs-Bands # (test code = Segs-Bands #) 4.8 1.5-8.1 N [facility]woodAanfueaSPDWZZKDNO5608-71-98 10:22:00 Test Item Value Reference Range Interpretation Comments Eosinophils # (test code 0.1 See_Comment N [A utomated message] The = Eosinophils #) system whic h generated this result tra nsmitted reference range : <=0.5. The reference r leo was not used to int erpret this result as normal/abnormal . [facility]woodSjcrncwNNWDXTHLMG1742-97-01 10:22:00 Test Item Value Reference Range Interpretation Comments Lymphocytes # (test code = Lymphocytes 1.5 1.0-5.5 N #) [facility]woodKoddajoHXZJCTQQDF3434-48-18 10:22:00 Test Item Value Reference Range Interpretation Comments Monocytes # (test code 0.5 See_Comment N [Aut omated message] The = Monocytes #) system which generated this result tra nsmitted reference range : <=0.8. The reference r leo was not used to int erpret this result as normal/abnormal . [facility]woodDvdhgpgCISYVDUMCG4463-43-72 10:22:00 Test Item Value Reference Range Interpretation Comments Basophils # (test code 0.0 See_Comment N [Aut omated message] The = Basophils #) system which generated this result tra nsmitted reference range : <=0.2. The reference r leo was not used to int erpret this result as normal/abnormal . [facility]woodNazeoiaZTGYUADMQO4561-75-97 10:22:00 Test Item Value Reference Range Interpretation Comments MPV (test code = MPV) 11.0 7.4-10.4 H [facility]woodMmogwhfJGUHCTIHXL3107-57-37 10:22:00 Test Item Value Reference Range Interpretation Comments Platelet (test code = Platelet) 161 133-450 N [facility]woodYnhykyjNLPPODSNME3228-95-41 10:22:00 Test Item Value Reference Range Interpretation Comments MCH (test code = MCH) 29.6 pg 27.0-31.0 N [facility]woodQttwbitLCPMYVLLCJ6765-89-65 10:22:00 Test Item Value Reference Range Interpretation Comments MCHC (test code = MCHC) 35.4 32.0-36.0 N [facility]woodWzpplwgXIVKLHNLKW4890-74-04 10:22:00 Test Item Value Reference Range Interpretation Comments RDW (test code = RDW) 14.1 11.5-14.5 N [facility]woodOincdpvXKBBGQKOWL1833-33-60 10:22:00 Test Item Value Reference Range Interpretation Comments WBC (test code = WBC) 6.8 3.7-10.4 N [facility]woodSdbjefxMXFXVYIGZJ7233-16-82 10:22:00 Test Item Value Reference Range Interpretation Comments MCV (test code = MCV) 83.5 81.0-99.0 N [facility]woodPwulgrvINXEOPRJRV4910-74-20 10:22:00 Test Item Value Reference Range Interpretation Comments RBC (test code = RBC) 4.44 4.20-5.40 N [facility]woodDaxmuvoIDHFJAATNK2397-37-79 10:22:00 Test Item Value Reference Range Interpretation Comments Hgb (test code = Hgb) 13.1 12.0-16.0 N [facility]woodObozczmUBHCVBRFVP7124-15-69 10:22:00 Test Item Value Reference Range Interpretation Comments Hct (test code = Hct) 37.1 36.0-48.0 N [facility] GLUCOSE WKHRUYA3288-38-59 02:20:00 Test Item Value Reference Range Interpretation Comments Comment1 (test code = Comment1) Notify RN/MD [facility] GLUCOSE QYPYMLR9812-52-25 02:20:00 Test Item Value Reference Range Interpretation Comments Gluc POC Lifscn (test code = Gluc POC 332 65-110 H Lifscn) [facility] CenterXngjjzsBIMGYTAXS3845-75-07 09:47:00 Test Item Value Reference Range Interpretation Comments Phosphorus (test code = Phosphorus) 2.5 2.5-4.[address] [facility] CenterJvwmorqLTHSKGSIQ9530-78-64 09:47:00 Test Item Value Reference Range Interpretation Comments Glucose Lvl (test code = Glucose Lvl) 201 [facility] CenterNqrudgrTZAOQMSSZ2127-09-03 09:47:00 Test Item Value Reference Range Interpretation Comments BUN (test code = BUN) 7 7-[address] [facility] CenterIgiedfhBYOKGSZHP3176-24-52 09:47:00 Test Item Value Reference Range Interpretation Comments CO2 (test code = CO2) 19 24-[address] [facility] CenterKzwspasKMFZHJLQX4713-65-75 09:47:00 Test Item Value Reference Range Interpretation Comments Creatinine Lvl (test code = Creatinine 0.3 0.5-1.4 L Lvl) [facility] CenterIbstbqeLGPFQWPGG0619-07-56 09:47:00 Test Item Value Reference Range Interpretation Comments Sodium Lvl (test code = Sodium Lvl) 137 135-[address] [facility] CenterAglvejkDWMQVZQQM7449-92-47 09:47:00 Test Item Value Reference Range Interpretation Comments Chloride Lvl (test code = Chloride Lvl) 103 95-[address] [facility] CenterWumjmoeUJNNJCWCZ8111-74-87 09:47:00 Test Item Value Reference Range Interpretation Comments Potassium Lvl (test code = Potassium 3.6 3.5-5.1 N Lvl) [facility] CenterUxtylzkRTQPVNNHF3488-41-30 09:47:00 Test Item Value Reference Range Interpretation Comments Calcium Lvl (test code = Calcium Lvl) 7.9 8.5-10.[address] [facility] CenterAtmvhpvEIEVNEWXP1722-56-76 09:47:00 Test Item Value Reference Range Interpretation Comments AGAP (test code = AGAP) 18.6 10.0-20.[address] [facility] CenterPolkykeHCPBCHTSN6700-13-92 09:47:00 Test Item Value Reference Range Interpretation Comments Magnesium Lvl (test code = Magnesium 1.6 1.8-2.4 L Lvl) [facility]woodCvlrjuaKAFQPIQNQD7057-73-43 09:47:00 Test Item Value Reference Range Interpretation Comments Basophils # (test code 0.0 See_Comment N [Aut omated message] The = Basophils #) system which generated this result tra nsmitted reference range : <=0.2. The reference r leo was not used to int erpret this result as normal/abnormal . [facility]woodSzvcewrWNGLFMBXLI1490-94-11 09:47:00 Test Item Value Reference Range Interpretation Comments Eosinophils (test code = 0.4 See_Comment N [A utomated message] The Eosinophils) system which ge nerated this result tra nsmitted reference range : <=4.0. The reference r leo was not used to int erpret this result as normal/abnormal . [facility]woodUhqifbmNARDTAUQDT4807-53-03 09:47:00 Test Item Value Reference Range Interpretation Comments Basophils (test code = 0.5 See_Comment N [Aut omated message] The Basophils) system which ge nerated this result tra nsmitted reference range : <=1.0. The reference r leo was not used to int erpret this result as normal/abnormal . [facility]woodItewclxDLQOVTIWRN3357-01-09 09:47:00 Test Item Value Reference Range Interpretation Comments Segs-Bands # (test code = Segs-Bands #) 5.9 1.5-8.1 N [facility]woodWpslgaoFFLVROYYXW9917-87-11 09:47:00 Test Item Value Reference Range Interpretation Comments Lymphocytes # (test code = Lymphocytes 1.2 1.0-5.5 N #) [facility]woodOgeoizbENGNNAOUFR6832-98-00 09:47:00 Test Item Value Reference Range Interpretation Comments Monocytes # (test code 0.5 See_Comment N [Aut omated message] The = Monocytes #) system which generated this result tra nsmitted reference range : <=0.8. The reference r leo was not used to int erpret this result as normal/abnormal . [facility]woodMpriyuwEKJUWDZPYQ5731-70-52 09:47:00 Test Item Value Reference Range Interpretation Comments Eosinophils # (test code 0.0 See_Comment N [A utomated message] The = Eosinophils #) system whic h generated this result tra nsmitted reference range : <=0.5. The reference r leo was not used to int erpret this result as normal/abnormal . [facility]woodDtmtsxtUZAAJZEAMI8987-44-28 09:47:00 Test Item Value Reference Range Interpretation Comments Segs (test code = Segs) 76.9 45.0-75.0 H [facility]woodKsubkaiTKERSYFWIE5202-62-41 09:47:00 Test Item Value Reference Range Interpretation Comments Lymphocytes (test code = Lymphocytes) 15.9 20.0-40.0 L [facility]woodQojbgsjHIUWADLLNT3843-07-96 09:47:00 Test Item Value Reference Range Interpretation Comments Monocytes (test code = Monocytes) 6.3 2.0-12.0 N [facility]woodZspxtueSXTPMITGEU8163-46-91 09:47:00 Test Item Value Reference Range Interpretation Comments MCV (test code = MCV) 82.8 81.0-99.0 N [facility]woodYsezzehKUDNLPWDXH8787-13-87 09:47:00 Test Item Value Reference Range Interpretation Comments Hct (test code = Hct) 39.7 36.0-48.0 N [facility]woodGdlltftSPZIGETZXB0553-75-43 09:47:00 Test Item Value Reference Range Interpretation Comments MCH (test code = MCH) 29.1 pg 27.0-31.0 N [facility]woodUplewhaFOANGEXDSW8660-83-14 09:47:00 Test Item Value Reference Range Interpretation Comments Hgb (test code = Hgb) 14.0 12.0-16.0 N [facility]woodApnckkmIUYNZQPOTY6395-95-76 09:47:00 Test Item Value Reference Range Interpretation Comments MCHC (test code = MCHC) 35.2 32.0-36.0 N [facility]woodFjdwhnxXMYXKKFOSQ0527-33-17 09:47:00 Test Item Value Reference Range Interpretation Comments RDW (test code = RDW) 13.9 11.5-14.5 N [facility]woodVwyjijdNBYWEZKJAS7891-52-45 09:47:00 Test Item Value Reference Range Interpretation Comments Platelet (test code = Platelet) 160 133-450 N [facility]woodXurpjagTLLHEIZBTL5081-61-31 09:47:00 Test Item Value Reference Range Interpretation Comments MPV (test code = MPV) 11.9 7.4-10.4 H [facility]woodEqpmnrcOWRLCUXOND0741-81-91 09:47:00 Test Item Value Reference Range Interpretation Comments WBC (test code = WBC) 7.7 3.7-10.4 N [facility]woodEymabuwGGLVRDENSK6356-05-28 09:47:00 Test Item Value Reference Range Interpretation Comments RBC (test code = RBC) 4.80 4.20-5.[address] [facility] CenterEobmjjuMFGJNZYID8164-67-22 10:28:00 Test Item Value Reference Range Interpretation Comments Phosphorus (test code = Phosphorus) 2.6 2.5-4.[address] [facility] CenterWxyswbfVAHXIHSNB4721-66-43 10:28:00 Test Item Value Reference Range Interpretation Comments Magnesium Lvl (test code = Magnesium 1.8 1.8-2.4 N Lvl) [facility] CenterEmdhxvvUDUNSBRDU2804-74-86 10:28:00 Test Item Value Reference Range Interpretation Comments Potassium Lvl (test code = Potassium 3.7 3.5-5.1 N Lvl) [facility] CenterDzdfooqTLRHJBGYR2502-86-57 10:28:00 Test Item Value Reference Range Interpretation Comments Sodium Lvl (test code = Sodium Lvl) 137 135-[address] [facility] [facility] CenterTparwmiUUMCCUZYT1239-34-05 10:28:00 Test Item Value Reference Range Interpretation Comments Creatinine Lvl (test code = Creatinine 0.6 0.5-1.4 N Lvl) [facility] CenterRcclryrYJAGSRDOE9845-58-06 10:28:00 Test Item Value Reference Range Interpretation Comments BUN (test code = BUN) 16 7-[address] [facility] CenterWxliupxALPYOIYJW5190-70-52 10:28:00 Test Item Value Reference Range Interpretation Comments Glucose Lvl (test code = Glucose Lvl) 200 [facility] CenterIhqosquAYPWYQUZO6966-08-75 10:28:00 Test Item Value Reference Range Interpretation Comments Calcium Lvl (test code = Calcium Lvl) 8.3 8.5-10.[address] [facility] CenterBfaciiiKOVSRSMMI6057-45-11 10:28:00 Test Item Value Reference Range Interpretation Comments AGAP (test code = AGAP) 19.7 10.0-20.[address] [facility] CenterStbozbpEPYYUQHPE1840-62-48 10:28:00 Test Item Value Reference Range Interpretation Comments Chloride Lvl (test code = Chloride Lvl) 99 95-[address] [facility] CenterRbxdhjwIZAZFXHCQ7949-62-77 10:28:00 Test Item Value Reference Range Interpretation Comments CO2 (test code = CO2) 22 24-32 L [facility]woodSbbdxaeVYZPGYYYZX7996-39-22 10:28:00 Test Item Value Reference Range Interpretation Comments Platelet (test code = Platelet) 172 133-450 N [facility]woodMqnkcczXIIERAVDYZ2581-65-33 10:28:00 Test Item Value Reference Range Interpretation Comments MPV (test code = MPV) 12.0 7.4-10.4 H [facility]woodDobkywuRCGCDOZTYR8640-65-21 10:28:00 Test Item Value Reference Range Interpretation Comments WBC (test code = WBC) 7.3 3.7-10.4 N [facility]woodOrefsypFNFBGMPEBB5835-68-48 10:28:00 Test Item Value Reference Range Interpretation Comments RDW (test code = RDW) 14.6 11.5-14.5 H [facility]woodQdemjlnZJBODRNFFL1064-15-70 10:28:00 Test Item Value Reference Range Interpretation Comments MCHC (test code = MCHC) 35.0 32.0-36.0 N [facility]woodKtigerrUFATKTSWCE5675-19-28 10:28:00 Test Item Value Reference Range Interpretation Comments RBC (test code = RBC) 4.54 4.20-5.40 N [facility]woodPcocwayJLNHUCTCJR1548-44-88 10:28:00 Test Item Value Reference Range Interpretation Comments Hct (test code = Hct) 37.6 36.0-48.0 N [facility]woodWpryxluWAWUHIVOVC6859-89-75 10:28:00 Test Item Value Reference Range Interpretation Comments MCV (test code = MCV) 82.9 81.0-99.0 N [facility]woodPucebtoYRDEIWBRMK2038-90-96 10:28:00 Test Item Value Reference Range Interpretation Comments MCH (test code = MCH) 29.0 pg 27.0-31.0 N [facility]woodEqlngbgKPCQNPDUQY6201-25-83 10:28:00 Test Item Value Reference Range Interpretation Comments Hgb (test code = Hgb) 13.2 12.0-16.0 N [facility]woodWyfwxrrFILNCNPWXC3853-82-95 10:28:00 Test Item Value Reference Range Interpretation Comments Elliptocyte (test code = Slight A Elliptocyte) *ABN*(08/21/2011 04:28:00) [facility]woodByjuoouFLLXGAYNSD3869-51-84 10:28:00 Test Item Value Reference Range Interpretation Comments Polychrom (test code = Slight (08/21/2011 N Polychrom) 04:28:00) [facility]woodBieqovnXLZWPGJJCH1635-40-37 10:28:00 Test Item Value Reference Range Interpretation Comments Basophils # (test code 0.0 See_Comment N [Aut omated message] The = Basophils #) system which generated this result tra nsmitted reference range : <=0.2. The reference r leo was not used to int erpret this result as normal/abnormal . [facility]woodPuoahfoOYPONFLKQS8757-08-43 10:28:00 Test Item Value Reference Range Interpretation Comments Hypochrom (test code = Slight (08/21/2011 N Hypochrom) 04:28:00) [facility]woodCyvvaznASTKYKDNDT8813-87-39 10:28:00 Test Item Value Reference Range Interpretation Comments Monocytes # (test code 0.6 See_Comment N [Aut omated message] The = Monocytes #) system which generated this result tra nsmitted reference range : <=0.8. The reference r leo was not used to int erpret this result as normal/abnormal . [facility]woodDqwynkoXCCQLUMMLK7902-01-17 10:28:00 Test Item Value Reference Range Interpretation Comments Eosinophils # (test code 0.0 See_Comment N [A utomated message] The = Eosinophils #) system whic h generated this result tra nsmitted reference range : <=0.5. The reference r leo was not used to int erpret this result as normal/abnormal . [facility]woodCbyejgxVGELVRIKGJ5085-57-30 10:28:00 Test Item Value Reference Range Interpretation Comments Segs-Bands # (test code = Segs-Bands #) 5.3 1.5-8.1 N [facility]woodAznshssELFYLJWYWE1371-50-15 10:28:00 Test Item Value Reference Range Interpretation Comments Lymphocytes # (test code = Lymphocytes 1.3 1.0-5.5 N #) [facility]woodSejlpeeMTAAVBMGMF8387-73-55 10:28:00 Test Item Value Reference Range Interpretation Comments Basophils (test code = 0.5 See_Comment N [Aut omated message] The Basophils) system which ge nerated this result tra nsmitted reference range : <=1.0. The reference r leo was not used to int erpret this result as normal/abnormal . [facility]woodIxyghkyJVDQPSXUNV1615-13-31 10:28:00 Test Item Value Reference Range Interpretation Comments Monocytes (test code = Monocytes) 8.5 2.0-12.0 N [facility]woodZultpvmSKMXZMEVWF5911-29-68 10:28:00 Test Item Value Reference Range Interpretation Comments Eosinophils (test code = 0.3 See_Comment N [A utomated message] The Eosinophils) system which ge nerated this result tra nsmitted reference range : <=4.0. The reference r leo was not used to int erpret this result as normal/abnormal . [facility]woodVndhjyqFZNMZMQUJO0497-82-10 10:28:00 Test Item Value Reference Range Interpretation Comments Lymphocytes (test code = Lymphocytes) 17.3 20.0-40.0 L [facility]woodKovlimwUHXYZWWANI8808-53-65 10:28:00 Test Item Value Reference Range Interpretation Comments Segs (test code = Segs) 73.4 45.0-75.0 N [facility] GLUCOSE LLPHESR0754-34-90 07:47:00 Test Item Value Reference Range Interpretation Comments Comment2 (test code = Comment2) Verify w/Lab [facility] CenterNxzgqjdHFJHEOTVP1829-52-28 21:58:00 Test Item Value Reference Range Interpretation Comments S Preg (test code = S Negative (08/19/2011 N Preg) 15:58:00) [facility] CenterGzwyjvhIBASEBASO3676-95-46 21:58:00 Test Item Value Reference Range Interpretation Comments Lipase Lvl (test code = Lipase Lvl) 169 73-[address] [facility] [facility] CenterGrrcyxoRXKHZRXBQ5717-82-82 21:58:00 Test Item Value Reference Range Interpretation Comments ALT (test code = ALT) 54 See_Comment N [Auto mated message] The system which ge nerated this result transmit rohit reference range : <=65. The reference range was not used to interpr et this result as reji l/abnormal. [facility] CenterGcjplaePTLWRSHXZ7264-90-91 21:58:00 Test Item Value Reference Range Interpretation Comments Alk Phos (test code = Alk Phos) 110 39-[address] [facility] [facility] CenterMnnsxwyOBPTFPBWS8727-73-97 21:58:00 Test Item Value Reference Range Interpretation Comments Bili Direct (test code 0.1 See_Comment N [Aut omated message] The = Bili Direct) system which generated this result tra nsmitted reference range : <=0.3. The reference r leo was not used to int erpret this result as reji l/abnormal. [facility] CenterQiyatyaZETAVJANK3371-75-46 21:58:00 Test Item Value Reference Range Interpretation Comments Bili Total (test code = Bili Total) 0.9 0.2-1.[address] [facility] CenterPcdvtkgWDSCMALZL2122-23-83 21:58:00 Test Item Value Reference Range Interpretation Comments Albumin Lvl (test code = Albumin Lvl) 4.4 3.5-5.[address] [facility] CenterRyzdddfMTDBNTGNW3212-63-42 21:58:00 Test Item Value Reference Range Interpretation Comments Total Protein (test code = Total 8.8 6.4-8.4 H Protein) [facility] CenterAoubrbcSCKQBEHOZ1287-46-85 21:58:00 Test Item Value Reference Range Interpretation Comments Bili Indirect (test 0.8 See_Comment N [Automa rohit message] The code = Bili Indirect) system which generated this result tra nsmitted reference range : <=1.0. The reference r leo was not used to int erpret this result as normal/abnormal . [facility] CenterDcankhbRCVOKVNGT4460-37-10 21:58:00 Test Item Value Reference Range Interpretation Comments AST (test code = AST) 36 See_Comment N [Auto mated message] The system which ge nerated this result transmit rohit reference range : <=37. The reference range was not used to interpr et this result as reji l/abnormal. [facility] CenterSvhucgbTELYHJGQW7799-84-32 21:58:00 Test Item Value Reference Range Interpretation Comments Globulin (test code = Globulin) 4.4 2.0-4.[address] [facility] CenterCclgghoURQTHAQFK1986-71-82 21:58:00 Test Item Value Reference Range Interpretation Comments A/G Ratio (test code = A/G Ratio) 1.0 0.7-1.6 N [facility]YynohbxDWSCXRGDKQ9388-68-89 21:58:00 Test Item Value Reference Range Interpretation Comments UA Bacteria (test code Occasional /HPF N = UA Bacteria) (08/19/2011 15:58:00) [facility]PNWURMHNTJ4317[facility]72[facility] 21:58:00 Test Item Value Reference Range Interpretation Comments UA RBC (test 3-5 /HPF See_Comment A [Automated mes pastor] code = UA RBC) *ABN*(08/19/2011 The syste m which 15:58:00) generated this result transmitted ref erence range: <=2. The reference range was not used to int erpret this result as normal/abnormal . [facility] CenterMeslhaeLQSTOIGSUY5849-65-82 21:58:00 Test Item Value Reference Range Interpretation Comments UA WBC (test code = 3 See_Comment [Automa rohit message] The UA WBC) system which ge nerated this result transmit rohit reference range : <=5. The reference range was not used to interpr et this result as reji l/abnormal. [facility]JqequvbYOUYPTGZYN8137-00-25 21:58:00 Test Item Value Reference Range Interpretation Comments UA Mucus (test code = Few /LPF (08/19/2011 N UA Mucus) 15:58:00) [facility] CenterVzrailuMXOCQREZVW2780-19-72 21:58:00 Test Item Value Reference Range Interpretation Comments UA Amorph Destiny (test Occasional /HPF A code = UA Amorph *ABN*(08/19/2011 Destiny) 15:58:00) [facility] CenterYckiuocJAZPEYMOFH8187-89-80 21:58:00 Test Item Value Reference Range Interpretation Comments UA Urobilinogen (test code = UA 0.2 0.1-1.0 N Urobilinogen) [facility] CenterRpqjsdfBKRJYHNSBG1897-46-30 21:58:00 Test Item Value Reference Range Interpretation Comments UA Sq Epi (test code = Rare /LPF (08/19/2011 N UA Sq Epi) 15:58:00) [facility] CenterPmsnizmSOACIQSPZZ6987-27-34 21:58:00 Test Item Value Reference Range Interpretation Comments Micro? (test code = Performed (08/19/2011 N Micro?) 15:58:00) [facility] CenterWmvkyhaSEMMWUMQQM4332-49-63 21:58:00 Test Item Value Reference Range Interpretation Comments UA Leuk Est (test Negative (08/19/2011 N code = UA Leuk Est) 15:58:00) [facility]AlkvkmjPBGDRYSKAK5728-71-57 21:58:00 Test Item Value Reference Range Interpretation Comments UA Nitrite (test code Negative (08/19/2011 N = UA Nitrite) 15:58:00) [facility] CenterJsfeknxXZIEFEBWVJ5862-75-01 21:58:00 Test Item Value Reference Range Interpretation Comments UA pH (test code = UA pH) 5.5 1 5.0-8.0 N [facility] CenterMjbrghaGAUIZNUFAM2332-98-15 21:58:00 Test Item Value Reference Range Interpretation Comments UA Blood (test code = Trace *ABN*(08/19/2011 A UA Blood) 15:58:00) [facility] HospitalDwzckduWGKBLQYLYD9750-93-89 21:58:00 Test Item Value Reference Range Interpretation Comments UA Bili (test code = Negative (08/19/2011 N UA Bili) 15:58:00) [facility]M0522[facility]16-60 21:58:00 Test Item Value Reference Range Interpretation Comments UA Ketones (test code = 80 mg/dL A UA Ketones) *ABN*(08/19/2011 15:58:00) [facility]DudknsbCCRBDEVWDP1824-43-77 21:58:00 Test Item Value Reference Range Interpretation Comments UA Glucose (test code = >=1000 mg/dL A UA Glucose) *ABN*(08/19/2011 15:58:00) [facility]erc[facility]hORNSLWHZRV5806-33-05 21:58:00 Test Item Value Reference Range Interpretation Comments UA Protein (test code Negative (08/19/2011 N = UA Protein) 15:58:00) [facility] HospitalSohilkwHFNKLIYVKT8771-36-08 21:58:00 Test Item Value Reference Range Interpretation Comments UA Turbidity (test code Slight Cloudy N = UA Turbidity) (08/19/2011 15:58:00) [facility]RhwhzpuHORGBFGCHE8387-96-45 21:58:00 Test Item Value Reference Range Interpretation Comments UA Spec Grav (test code = UA Spec 1.025 1 Grav) [facility]ByjpsdyPETSPOSIOX1798-28-82 21:58:00 Test Item Value Reference Range Interpretation Comments UA Color (test code = Yellow (08/19/2011 N UA Color) 15:58:00) [facility] CenterYoxieonQEVAAGIZS0569-17-08 21:13:00 Test Item Value Reference Range Interpretation Comments AST (test code = AST) 23 See_Comment N [Auto mated message] The system which ge nerated this result transmit rohit reference range : <=37. The reference range was not used to interpr et this result as reji l/abnormal. [facility] CenterZdamegjRFRSGCMAH3389-16-77 21:13:00 Test Item Value Reference Range Interpretation Comments Bili Total (test code = Bili Total) 1.0 0.2-1.[address] [facility] CenterCfywgdyCCYNXOEJG0749-45-65 21:13:00 Test Item Value Reference Range Interpretation Comments Alk Phos (test code = Alk Phos) 115 39-[address] [facility] CenterEfqfsnvENOFNRPLX2041-72-05 21:13:00 Test Item Value Reference Range Interpretation Comments ALT (test code = ALT) 56 See_Comment N [Auto mated message] The system which ge nerated this result transmit rohit reference range : <=65. The reference range was not used to interpr et this result as reji l/abnormal. [facility] CenterVgtjssgWGQDOLMKX6254-32-18 21:13:00 Test Item Value Reference Range Interpretation Comments Total Protein (test code = Total 9.0 6.4-8.4 H Protein) [facility] CenterCdybfchWTJLIOGBK4112-61-06 21:13:00 Test Item Value Reference Range Interpretation Comments Albumin Lvl (test code = Albumin Lvl) 4.8 3.5-5.[address] [facility] CenterIhbyytcZYTZPQKHR5638-52-05 21:13:00 Test Item Value Reference Range Interpretation Comments Globulin (test code = Globulin) 4.2 2.0-4.[address] [facility] CenterEamadlqRTVAVVAYF4204-64-50 21:13:00 Test Item Value Reference Range Interpretation Comments A/G Ratio (test code = A/G Ratio) 1.1 0.7-1.[address] [facility] CenterWktronkOXQKHNCDP6608-96-08 21:13:00 Test Item Value Reference Range Interpretation Comments B/C Ratio (test code = B/C Ratio) 30 6-25 H [facility]HazlspoSBMYTVCSMF6366-51-11 21:13:00 Test Item Value Reference Range Interpretation Comments RBC Morph (test code = Normal (08/19/2011 N RBC Morph) 15:13:00) [facility]woodIqbnxmmVAGVPLXAIJ7431-24-93 21:13:00 Test Item Value Reference Range Interpretation Comments Large Plt (test code = Slight *ABN*(08/19/2011 A Large Plt) 15:13:00) [facility]woodWyxhqgwTYXMEWOBEV4227-16-26 21:13:00 Test Item Value Reference Range Interpretation Comments Atypical Lymphs (test code = Atypical 0.0 N Lymphs) [facility]woodSnuxvpyWIGOWIQAIW4380-38-90 21:13:00 Test Item Value Reference Range Interpretation Comments Bands (test code = 0.0 See_Comment N [Automat ed message] The Bands) system which ge nerated this result transmit rohit reference range : <=11.0. The reference r leo was not used to interpr et this result as reji l/abnormal. [facility] CenterHeadgoiEYOFTQVDY3430-01-48 21:10:00 Test Item Value Reference Range Interpretation Comments O2 Sat Roberth (test code = O2 Sat Roberth) 74.0 40.0-70.[address] [facility] CenterYkmlibfTFTEKQCTA0943-28-35 21:10:00 Test Item Value Reference Range Interpretation Comments Temp Roberth (test code = Temp Roberth) 37.0 [facility] CenterTcqhtamIIFHIOQVR5691-27-03 21:10:00 Test Item Value Reference Range Interpretation Comments pO2 Roberth (test code = pO2 Roberth) 42 20-[address] [facility] CenterJslifmfVGWHRVXNA9376-25-89 21:10:00 Test Item Value Reference Range Interpretation Comments HCO3 Roberth (test code = HCO3 Roberth) 17.3 22.0-26.[address] [facility] CenterIvrinszHQIZFSRJZ9271-19-42 21:10:00 Test Item Value Reference Range Interpretation Comments pH Roberth (test code = pH Roberth) 7.34 7.28-7.[address] [facility] CenterPaozaeyDMBMNSXFU5722-20-31 21:10:00 Test Item Value Reference Range Interpretation Comments pCO2 Roberth (test code = pCO2 Roberth) 32 38-[address] [facility] CenterGcgazopIZKTIPQFC3974-12-45 21:10:00 Test Item Value Reference Range Interpretation Comments BE Roberth (test code = -7 See_Comment L [Automa rohit message] The BE Roberth) system which ge nerated this result transmit rohit reference range : <=2. The reference range was not used to interpr et this result as reji l/abnormal. [facility]landsAdohbxlSWIRUGMLGW4246-18-55 20:34:00 Test Item Value Reference Range Interpretation Comments CDC-HIV 1/2 Ab (test Negative *NA*(08/19/2011 code = CDC-HIV 1/2 14:34:00) Ab) [facility]
--- NOTE | 2021-07-30 20:35 | RAD REPORT ---
EXAM DESCRIPTION: RAD - Chest Single View - 07/30/2021 7:57 pm CLINICAL HISTORY: ESRD, sob COMPARISON: Chest Single View dated 06/30/2021; Chest Single View dated 03/31/2021; Chest Single View dated 02/17/2021; Chest Single View dated 10/10/2020 FINDINGS: Lines: Right IJ approach dialysis catheter. Lungs: No evidence of edema or pneumonia. Pleural: No significant pleural effusions or pneumothorax. Cardiac: Cardiomegaly. Bones: No acute fractures. Other: IMPRESSION: No acute cardiopulmonary disease.
[2021-07-30 20:40] LABS: Protime INR 1.01
[2021-07-30 20:48] LABS: Absolute Lymphocytes (CBC) 0.8 K/uL (0.7-4.9); MPV 10.4 fL (7.6-11.3); RBC Red Blood Cell Count 2.19 M/uL (3.86-4.86)
[2021-07-30 20:50] LABS: Hematocrit 19.5 % (36.0-45.0)
--- NOTE | 2021-07-30 21:13 | EDPHYS ---
Physician Documentation [facility] Name: Cathi Zaldivar Age: 40 yrs Sex: Female : 1980 Arrival Date: 07/30/2021 Time: 18:38 Bed 14 Private MD: Jose Miguel Morin ED Physician Dinesh Stallworth HPI: 07/30 19:21 This 40 yrs old Female presents to ER via Wheelchair with complaints of low rn hemoglobin. 19:21 Pt reports went to dialysis today, sent here for evaluation, told blood from 5 days ago rn showed low hemoglobin. Denies active bleeding, last blood transfusion a couple of months ago. Denies blood in stool or dark stool. No fever. Reports mild sob. Had full dialysis session today.. Onset: The symptoms/episode began/occurred at an unknown time. Severity of symptoms: At their worst the symptoms were mild in the emergency department the symptoms are unchanged. The patient has experienced a previous episode. The patient has been recently seen by a physician:. 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: 19:05 tubes tied sm5 Historical: - Allergies: 19:03 ambien; sm5 19:03 Codeine; sm5 19:03 GUAIFENESIN; sm5 19:03 Ibuprofen; sm5 19:03 Lisinopril; sm5 19:03 Morphine; sm5 19:03 Nitrofurantoin Macrocrystal; sm5 19:03 PENICILLINS; sm5 19:03 Prolixin; sm5 19:03 zolpidem tartrate; sm5 - PMHx: 19:03 "mental problems"; CHF; chronic kidney disease; covid 19; cyclic vomiting syndrome; sm5 Diabetes - NIDDM; Dialysis; m-w-f; ENCEPHALOPATHY; Gastroparesis; HD-TTHSat; Hypertension; ibs; liver failure; PERIPHERAL NEUROPATHY; pseudo aneurysm R groin; Seizures; - PSHx: 19:03 section; dialysis catheter R chest wall; eye removed; sm5 - Immunization history:: Client reports having NOT received the Covid vaccine. - Social history:: Smoking status: Patient reports the use of cigarette tobacco products, denies chronic smoking, but will smoke occasionally. - Family history:: not pertinent. - Hospitalizations: : No recent hospitalization is reported. ROS: 19:21 Constitutional: Negative for fever, chills, and weight loss, Eyes: Negative for injury, rn pain, redness, and discharge, Neck: Negative for injury, pain, and swelling, Cardiovascular: Negative for chest pain, palpitations, and edema, Respiratory: Negative for cough, wheezing, and pleuritic chest pain, Abdomen/GI: Negative for abdominal pain, nausea, vomiting, diarrhea, and constipation, Back: Negative for injury and pain, : Negative for injury, bleeding, discharge, and swelling, MS/Extremity: Negative for injury and deformity, Skin: Negative for injury, rash, and discoloration, Neuro: Negative for headache, numbness, tingling, and seizure. Exam: 19:21 Constitutional: This is a well developed, well nourished patient who is awake, alert, rn and in no acute distress. Head/Face: Normocephalic, atraumatic. Eyes: Periorbital areas with no swelling, redness, or edema. Cardiovascular: Regular rate and rhythm. No pulse deficits. Respiratory: No increased work of breathing, no retractions or nasal flaring. Abdomen/GI: Soft, non-tender Skin: Warm, dry MS/ Extremity: Pulses equal, no cyanosis. Neuro: Awake and alert, GCS 15 Vital Signs: 19:02 BP 132 / 72; Pulse 71; Resp 18; Temp 97; Pulse Ox 97% on R/A; Weight 71 kg; Height 5 sm5 ft. 2 in. (157.48 cm); Pain 7/10; 20:05 BP 158 / 72; Pulse 73; Resp 16; Pulse Ox 99% on R/A; Pain 0/10; milly 21:28 BP 175 / 80; Pulse 73; Resp 16; Pulse Ox 100% on R/A; Pain 0/10; milly 22:57 BP 135 / 63; Pulse 74; Resp 16; Temp 98.5; Pulse Ox 100% on R/A; Pain 0/10; milly 19:02 Body Mass Index 28.63 (71.00 kg, 157.48 cm) sm5 MDM: 19:10 Patient medically screened. rn 21:03 ED course: Consulted with Dr. Cooper, recommends admission for transfusion of 1-2 units rn and dialysis since 2 days away from next dialysis. . 21:09 Differential Diagnosis anemia of chronic disease, ESRD. Data reviewed: vital signs, rn nurses notes, lab test result(s), EKG, radiologic studies, plain films, and as a result, I will admit patient. Counseling: I had a detailed discussion with the patient and/or guardian regarding: the historical points, exam findings, and any diagnostic results supporting the discharge/admit diagnosis, lab results, radiology results, the need for further work-up and treatment in the hospital. Admission orders: after a detailed discussion of the patient's condition and case, the admit orders are written by me. 07/30 19:18 Order name: CBC with Diff rn 07/30 19:18 Order name: Basic Metabolic Panel rn 07/30 19:18 Order name: Protime (+inr); Complete Time: 20:42 rn 07/30 19:18 Order name: Ptt, Activated; Complete Time: 20:42 rn 07/30 19:18 Order name: Type And Screen rn 07/30 19:18 Order name: CBC with Automated Diff; Complete Time: 20:53 EDMS 07/30 19:18 Order name: IV Start; Complete Time: 20:35 rn 07/30 19:18 Order name: EKG; Complete Time: 19:18 rn 07/30 19:18 Order name: EKG - Nurse/Tech; Complete Time: 20:36 rn 07/30 19:18 Order name: XRAY Chest (1 view); Complete Time: 20:37 rn 07/30 21:07 Order name: COVID-19 SARS RT PCR (Document "Date of Onset" if Symptomatic) bb 07/30 21:45 Order name: CONS Physician Consult EDMS Administered Medications: No medications were administered Disposition Summary: 07/30/21 21:12 Hospitalization Ordered Hospitalization Status: Observation rn Provider: Chandler Bautista rn Location: Telemetry/MedSurg (observation) rn Condition: Stable rn Problem: an ongoing problem rn Symptoms: are unchanged rn Bed/Room Type: Standard rn Room Assignment: 216(07/30/21 22:36) cg Diagnosis - Anemia in chronic kidney disease rn - End stage renal disease rn Forms: - Medication Reconciliation Form rn - SBAR form rn Signatures: Dispatcher [employer] EDMS Dinesh Stallworth MD MD rn Garcia, Cindy, RN RN cg Mazur, Sarah, RN RN Espinoza Corrections: (The following items were deleted from the chart) 22:36 21:12 rn cg
--- NOTE | 2021-07-30 21:13 | ER ---
Nurse's Notes [facility] Name: Cathi Zaldivar Age: 40 yrs Sex: Female : 1980 Arrival Date: 07/30/2021 Time: 18:38 Bed 14 Private MD: Jose Miguel Morin Diagnosis: Anemia in chronic kidney disease;End stage renal disease Presentation: 07/30 19:02 Chief complaint: Patient states: got bloodwork on 07/23 and her hemoglobin was 6.9. pt sm5 states she missed dialysis for a week due to not having a ride, went to dialysis today. said she needs a blood transfusion. Coronavirus screen: Vaccine status: Patient reports being unvaccinated. Ebola Screen: No symptoms or risks identified at this time. Initial Sepsis Screen: Does the patient meet any 2 criteria? No. Patient's initial sepsis screen is negative. Does the patient have a suspected source of infection? No. Patient's initial sepsis screen is negative. Risk Assessment: Do you want to hurt yourself or someone else? Patient reports no desire to harm self or others. Onset of symptoms was July 30, 2021. 19:02 Method Of Arrival: Wheelchair [facility] 19:02 Acuity: JESSICA 3 5 Triage Assessment: 19:04 General: Appears in no apparent distress. Behavior is cooperative. Pain: Complains of 5 pain in abdomen. Neuro: No deficits noted. Level of Consciousness is awake, alert, obeys commands, Oriented to person, place, time, situation. Cardiovascular: No deficits noted. Patient's skin is warm and dry. Respiratory: Reports shortness of breath Airway is patent Trachea midline Respiratory effort is even, unlabored. 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: 19:05 tubes tied 5 Historical: - Allergies: 19:03 ambien; sm5 19:03 Codeine; sm5 19:03 GUAIFENESIN; sm5 19:03 Ibuprofen; sm5 19:03 Lisinopril; 5 19:03 Morphine; sm5 19:03 Nitrofurantoin Macrocrystal; sm5 19:03 PENICILLINS; sm5 19:03 Prolixin; sm5 19:03 zolpidem tartrate; 5 - PMHx: 19:03 "mental problems"; CHF; chronic kidney disease; covid 19; cyclic vomiting syndrome; sm5 Diabetes - NIDDM; Dialysis; m-w-f; ENCEPHALOPATHY; Gastroparesis; HD-TTHSat; Hypertension; ibs; liver failure; PERIPHERAL NEUROPATHY; pseudo aneurysm R groin; Seizures; - PSHx: 19:03 section; dialysis catheter R chest wall; eye removed; sm5 - Immunization history:: Client reports having NOT received the Covid vaccine. - Social history:: Smoking status: Patient reports the use of cigarette tobacco products, denies chronic smoking, but will smoke occasionally. - Family history:: not pertinent. - Hospitalizations: : No recent hospitalization is reported. Screenin:12 Abuse screen: Denies threats or abuse. Denies injuries from another. Nutritional milly screening: No deficits noted. Tuberculosis screening: No symptoms or risk factors identified. Fall Risk None identified. Assessment: 20:00 General: Appears in no apparent distress. comfortable, Behavior is calm, cooperative. milly General: Per the pt's report and paperwork she brought, she was at dialysis today and her Hgb was 6.9. She is unsure if these were drawn before, or after dialysis. She has a dialysis cath to her Rt SC and her Rt arm. Per her report, they are to remove the SC "soon". She reports, prior to today, her last dialysis was last Wednesday, as she "couldn't get a ride". She is pleasant and cooperative. NAD. I attempted to get IV access to her Lt arm, but was unsuccessful. I informed the charge nurse and she is attempting, using the doppler. . Pain: Denies pain. 21:21 General: The MD spoke with the pt about being admitted and initially, she agreed. She milly called me to her room to say,"I don't want to be admitted...I just want a pint and to go." This info was given to the MD and he said he will speak with her. . 21:25 General: is at bedside discussing the POC with the pt. . milly 22:58 General: Report called to the nurse for room 216. The pt was "flipped" by registration. milly She will be transferred kiah. . Vital Signs: 19:02 BP 132 / 72; Pulse 71; Resp 18; Temp 97; Pulse Ox 97% on R/A; Weight 71 kg; Height 5 sm5 ft. 2 in. (157.48 cm); Pain 7/10; 20:05 BP 158 / 72; Pulse 73; Resp 16; Pulse Ox 99% on R/A; Pain 0/10; milly 21:28 BP 175 / 80; Pulse 73; Resp 16; Pulse Ox 100% on R/A; Pain 0/10; milly 22:57 BP 135 / 63; Pulse 74; Resp 16; Temp 98.5; Pulse Ox 100% on R/A; Pain 0/10; milly 19:02 Body Mass Index 28.63 (71.00 kg, 157.48 cm) [facility] ED Course: 18:38 Patient arrived in ED. am2 18:39 Jose Miguel Morin DO is Private Physician. am2 19:03 Triage completed. 5 19:05 Arm band placed on right wrist. 5 19:10 Dinesh Stallworth MD is Attending Physician. rn 19:22 Hawa Lin RN is Primary Nurse. milly 19:57 XRAY Chest (1 view) In Process Unspecified. EDMS 20:00 Accessed peripheral vein via ultrasound, utilizing dynamic ultrasound technique using bb per hospital protocol. midline Powerglide 20g 8 cm with good blood return and flushes easily. 20:00 Initial lab(s) drawn, by me, sent to lab. T\\T\\S collected, blood band applied to patient. bb 20:12 Bed in low position. Call light in reach. Side rails up X 1. milly 20:12 No provider procedures requiring assistance completed. milly 20:35 CBC with Diff Sent. milly 20:35 Basic Metabolic Panel Sent. milly 20:35 Ptt, Activated Sent. milly 20:35 Protime (+inr) Sent. milly 20:36 Type And Screen Sent. milly 20:36 CBC with Automated Diff Sent. milly 21:11 Chandler Bautista is Hospitalizing Provider. rn 23:24 IV is patent, is intact, with fluids infusing freely, with good blood return, milly Administered Medications: No medications were administered Outcome: 21:12 Decision to Hospitalize by Provider. rn 21:22 Condition: stable milly 23:24 Admitted to Report called to nurse for 216 milly 23:25 Patient left the ED. milly Signatures: Dispatcher [employer] EDMS Hawa Bustillos RN RN bb Nieto, Roman, MD MD rn Moreno, Amanda am2 Kathleen Corcoran, RN RN sm5 Hawa Lin, RN RN milly
[2021-07-30 21:36] LABS: Potassium 4.2 mmol/L (3.5-5.1)
--- NOTE | 2021-07-30 22:08 | P.HP ---
Certification for Inpatient Patient admitted to: Observation With expected LOS: <2 Midnights Patient will require the following post-hospital care: None Practitioner: I am a practitioner with admitting privileges, knowledge of patient current condition, hospital course, and medical plan of care. Services: Services provided to patient in accordance with Admission requirements found in Title 42 Section 412.3 of the Code of Federal Regulations Patient History Date of Service: 07/30/21 Reason for admission: AoCD, ESRD History of Present Illness: Ms. Zaldivar is a 40 yo F with CHF, ESRD on HD, T2DM who was sent in from dialysis for blood transfusion. She denies active bleeding, melena, hematochezia. She has required blood transfusions in the past. She reports mild SOB. Denies lightheadness, fatigue. She had COVID last month and says she is still recovering. She had a full dialysis session today. Nephrology consulted. Patient will be admitted for blood transfusion with dialysis in the morning. Hemoglobin 6.7 Platelets 67 Allergies zolpidem tartrate [From Ambien] Allergy (Intermediate, Verified 10/17/16 23:08) Itching/Hives/Rash codeine [Codeine] Allergy (Verified 10/17/16 23:08) Hives fluphenazine enanthate [From Prolixin] Allergy (Verified 10/17/16 23:08) ARM NUMBNESS fluphenazine HCl [From Prolixin] Allergy (Verified 10/17/16 23:08) ARM NUMBNESS guaifenesin [From Prolex D] Allergy (Verified 10/17/16 23:08) Hives lisinopril Allergy (Verified 04/21/17 10:26) Anaphylaxis morphine Allergy (Verified 10/01/20 10:03) Itching Penicillins Allergy (Verified 10/17/16 23:08) Hives phenylephrine HCl [From Prolex D] Allergy (Verified 10/17/16 23:08) Hives nitrofurantoin Adverse Reaction (Verified 08/07/17 23:41) liver failure Home Medications: Calcium Acetate [Phoslo*] 2 cap PO TIDWM 03/05/20 Calcium Acetate [Phoslo*] 667 mg PO SNACKS 03/05/20 Divalproex Sodium [Divalproex Sodium ER] 500 mg PO BID 03/05/20 Linagliptin [Tradjenta] 5 mg PO DAILY 03/05/20 Sertraline [Zoloft*] 50 mg PO DAILY 03/05/20 Trazodone HCl 150 mg PO BEDTIME PRN PRN 03/05/20 Pantoprazole Sodium [Protonix] 1 tab PO DAILY 30 Days #30 tablet.dr 03/06/20 Gabapentin 1 tab PO BID 07/22/20 Metoprolol Succinate 25 mg PO DAILY 07/22/20 Pravastatin Sodium 1 tab PO DAILY 07/22/20 Doxazosin [Cardura*] 4 mg PO BEDTIME 09/30/20 Folic Acid/Vit B Complex and C [Dialyvite 800 Chewable Wafer] 1 tab PO DAILY 09/30/20 Furosemide [Lasix*] 40 mg PO BID 09/30/20 Metoclopramide [Reglan*] 5 ml PO TID 30 Days #45 ucup 10/01/20 Ondansetron [Zofran (Odt)*] 4 mg PO Q8H PRN 14 Days #30 tab 10/01/20 Ascorbate Calcium [Vitamin C] 500 mg PO TID #90 tablet 10/28/20 Sucralfate [Carafate*] 1 gm PO ACHS #90 tab 10/28/20 Zinc Sulfate [Zinc Sulfate*] 220 mg PO DAILY #30 cap 10/28/20 Calcitrol [Rocaltrol*] 0.5 mcg PO DAILY #30 cap 11/07/20 Hydralazine HCl 25 mg PO TID #90 tablet 11/07/20 Hydrocodone 10/APAP 325 [[place] 10/325*] 1 tab PO Q12H PRN #40 tab 11/07/20 Nepro Shake [Nepro*] 237 ml PO TID #60 can 11/07/20 Cholecalciferol (Vitamin D3) [Vitamin D 5,000 IU Cap*] 5,000 unit PO DAILY #30 cap 01/16/21 Hydrocodone 5/APAP 325 [[place] 5/325] 1 tab PO Q6H PRN #30 tab 07/02/21 clonazePAM [Klonopin] 0.5 mg PO TID PRN #60 tablet 07/02/21 - Past Medical/Surgical History Diabetic: Yes -: DM Type 2 -: Seizure disorder -: ESRD on HD -: DM Gastroparesis -: DM Neuropathy -: Insomnia -: Obesity -: JAYLA -: Hypertension -: Post traumatic stress disorder -: Schizoaffective disorder -: CHF, diastolic -: I/D of the right elbow -: 2 previous C-sections -: Tubal ligation Psychosocial/ Personal History: She is , she has 2 children, she does not work. She lives with her boyfriend and daughter. - Family History Mother -: Hypertension, Diabetes, Cancer, Other (see notes) Notes: hypothyroid, asthma, breast cancer Father -: Diabetes, Cancer Notes: - stomach/ lung/ prostate cancer, diabetes - Social History Smoking Status: Unknown if ever smoked Alcohol use: No CD- Drugs: No Caffeine use: No Review of Systems 10-point ROS is otherwise unremarkable Respiratory: Shortness of Breath Physical Examination - Physical Exam General: Alert, In no apparent distress HEENT: Atraumatic, PERRLA, Mucous membr. moist/pink, EOMI, Sclerae nonicteric Neck: Supple, 2+ carotid pulse no bruit, No LAD, Without JVD or thyroid abnormality Respiratory: Normal air movement Cardiovascular: No edema, Regular rate/rhythm, Normal S1 S2 Gastrointestinal: Normal bowel sounds, No tenderness Musculoskeletal: No tenderness Integumentary: No rashes Neurological: Normal speech, Normal strength at 5/5 x4 extr, Normal tone, Normal affect Lymphatics: No axilla or inguinal lymphadenopathy - Studies Laboratory Data (last 24 hrs) 07/30/21 20:00: PT 11.6, INR 1.01, APTT 38.6 H 07/30/21 20:00: Sodium 137, Potassium 4.2, BUN 22 H, Creatinine 4.59 H, Glucose 197 H 07/30/21 20:00: WBC 2.70 L, Hgb 6.7 L*, Hct 19.5 L*, Plt Count 97 L* Assessment and Plan - Problems (Diagnosis) (1) Anemia in chronic kidney disease Onset Date: 08/09/17 Current Visit: No Status: Chronic Qualifiers: (2) CHF (congestive heart failure) Onset Date: 10/19/16 Current Visit: No Status: Chronic Qualifiers: (3) Diabetes mellitus Onset Date: 10/19/16 Current Visit: No Status: Chronic Qualifiers: Diabetes mellitus type: type 2 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 use: unspecified senior care insulin use status Diabetes mellitus complication status: with kidney complications Diabetes mellitus complication detail: with chronic kidney disease Chronic kidney disease stage: on chronic dialysis Qualified Code(s): E11.22 - Type 2 diabetes mellitus with diabetic chronic kidney disease; N18.6 - End stage renal disease; Z99.2 - Dependence on renal dialysis (4) End stage renal disease on dialysis Current Visit: No Status: Chronic (5) Hypertension Onset Date: 10/19/16 Current Visit: No Status: Chronic Qualifiers: Hypertension type: primary hypertension Qualified Code(s): I10 - Essential (primary) hypertension - Plan nephrology consulted 1 unit pRBCs with dialysis in the morning renal diet sliding scale insulin and accuchecks hydralazine PRN for BP spikes reconcile and continue home medications DVT ppx Discharge Plan: Home Plan to discharge in: 24 Hours - Advance Directives Does patient have a Living Will: No Does patient have a Durable POA for Healthcare: No - Code Status/Comfort Care Code Status Assessed: Yes (full code ) Critical Care: No Time Spent Managing Pts Care (In Minutes): 70
[2021-07-30] MEDS ORDERED: ONDANSETRON 4 MG/2 ML VIAL IV PRN (23:04)
[2021-07-30] MEDS ORDERED: ACETAMINOPHEN 500 MG TAB PO PRN (23:04)
[2021-07-30] MEDS ORDERED: HYDRALAZINE HCL 20 MG/ML VIAL IV PRN (23:04)
[2021-07-31 00:32] VITALS: BMI 28.5
[2021-07-31 06:19] LABS: Hematocrit 17.6 % (36.0-45.0); Lymphocytes % 37.2 % (15.3-44.8); RBC Red Blood Cell Count 1.98 M/uL (3.86-4.86)
[2021-07-31] MEDS: INSULIN -REGULAR HUMAN 50 UNIT/0.5 ML ML SQ SCH ×3 (07:30→16:30)
[2021-07-31 07:37] LABS: Albumin 2.9 g/dL (3.4-5.0); Bilirubin Total 0.3 mg/dL (0.2-1.0); Phosphorus 5.9 mg/dL (2.5-4.9); Potassium 4.7 mmol/L (3.5-5.1); Protein, Total 5.8 g/dL (6.4-8.2)
[2021-07-31] MEDS ORDERED: PNEUMOCOCCAL VACCINE 0.5 ML IMVAC ONE (08:00)
[2021-07-31 09:10] LABS: Blood Morphology Comment NOT SEEN (NOT SEEN); Platelet Estimate DECR
[2021-07-31] MEDS ORDERED: NA CHLORIDE 0.9% 1,000 ML IV PRN (12:00)
[2021-07-31] MEDS ORDERED: ALBUMIN HUMAN 25% 50 ML IV SCH (12:00)
[2021-07-31] MEDS ORDERED: MANNITOL 25% 12.5 GM/50 ML VIAL IV PRN (12:00)
--- NOTE | 2021-07-31 14:01 | P.DS ---
Admission Date: 07/30/21 Discharge Date: 07/31/21 Disposition: ROUTINE DISCHARGE Discharge Condition: FAIR Reason for Admission: AoCD, ESRD - Problems (1) Anemia in chronic kidney disease Onset Date: 08/09/17 Current Visit: No Status: Chronic Qualifiers: (2) Diabetes mellitus Onset Date: 10/19/16 Current Visit: No Status: Chronic Qualifiers: Diabetes mellitus type: type 2 Diabetes mellitus usp insulin use: unspecified usp insulin use status Diabetes mellitus complication status: with kidney complications Diabetes mellitus complication detail: with chronic kidney disease Chronic kidney disease stage: on chronic dialysis Qualified Code(s): E11.22 - Type 2 diabetes mellitus with diabetic chronic kidney disease; N18.6 - End stage renal disease; Z99.2 - Dependence on renal dialysis (3) ESRD (end stage renal disease) Current Visit: No Status: Chronic (4) Gastritis Current Visit: No Status: Chronic (5) History of peptic ulcer disease Current Visit: No Status: Chronic (6) Seizure disorder Onset Date: 06/08/16 Current Visit: No Status: Chronic Brief History of Present Illness: Ms. Zaldivar is a 40 yo F with CHF, ESRD on HD, T2DM who was sent in from dialysis for blood transfusion. She denies active bleeding, melena, hematochezia. She has required blood transfusions in the past. She reports mild SOB. Denies lightheadness, fatigue. She had COVID last month and says she is still recovering. She had a full dialysis session today. Nephrology consulted. Patient admitted for blood transfusion with dialysis in the morning. Hemoglobin 6.7 Platelets 67. Hospital Course: Patient placed on observation on the medical floor. Seen by nephrology. She underwent hemodialysis and transfuse 2 units PRBC. She was at baseline except the anemia. She is deemed clinically stable for discharge. Vital Signs/Physical Exam: Temp Pulse Resp BP Pulse Ox 98.6 F 65 16 122/58 L 98 07/31/21 04:00 07/31/21 04:00 07/31/21 04:00 07/31/21 04:00 07/31/21 04:00 General: In no apparent distress, Other (Awake) HEENT: Mucous membr. moist/pink Neck: JVD not distended Respiratory: Clear to auscultation bilaterally, Normal air movement Cardiovascular: No edema, Regular rate/rhythm, Normal S1 S2 Gastrointestinal: Soft and benign, Non-distended Musculoskeletal: No swelling Integumentary: No rashes Neurological: Other (No focal motor deficit) Laboratory Data at Discharge: WBC 2.70 K/uL (4.3-10.9) L 07/31/21 06:00 Hgb 6.0 g/dL (12.0-15.0) L* 07/31/21 06:00 Hct 17.6 % (36.0-45.0) L* 07/31/21 06:00 Plt Count 92 K/uL (152-406) L* 07/31/21 06:00 PT 11.6 SECONDS (9.5-12.5) 07/30/21 20:00 INR 1.01 07/30/21 20:00 APTT 38.6 SECONDS (24.3-36.9) H 07/30/21 20:00 Sodium 140 mmol/L (136-145) 07/31/21 06:00 Potassium 4.7 mmol/L (3.5-5.1) 07/31/21 06:00 BUN 29 mg/dL (7-18) H 07/31/21 06:00 Creatinine 5.51 mg/dL (0.55-1.3) H* 07/31/21 06:00 Glucose 85 mg/dL (74-106) 07/31/21 06:00 Phosphorus 5.9 mg/dL (2.5-4.9) H 07/31/21 06:00 Total Bilirubin 0.3 mg/dL (0.2-1.0) 07/31/21 06:00 AST 12 U/L (15-37) L 07/31/21 06:00 ALT 15 U/L (12-78) 07/31/21 06:00 Alkaline Phosphatase 59 U/L (45-117) 07/31/21 06:00 Home Medications: Calcium Acetate [Phoslo*] 2 cap PO TIDWM 03/05/20 Divalproex Sodium [Divalproex Sodium ER] 500 mg PO BID 03/05/20 Sertraline [Zoloft*] 50 mg PO DAILY 03/05/20 Trazodone HCl 150 mg PO BEDTIME PRN PRN 03/05/20 Pantoprazole Sodium [Protonix] 1 tab PO DAILY 30 Days #30 tablet. 03/06/20 Gabapentin 1 tab PO BID 07/22/20 Metoprolol Succinate 25 mg PO DAILY 07/22/20 Pravastatin Sodium 1 tab PO DAILY 07/22/20 Doxazosin [Cardura*] 4 mg PO BEDTIME 09/30/20 Furosemide [Lasix*] 40 mg PO BID 09/30/20 Ondansetron [Zofran (Odt)*] 4 mg PO Q8H PRN 14 Days #30 tab 10/01/20 Ascorbate Calcium [Vitamin C] 500 mg PO TID #90 tablet 10/28/20 Sucralfate [Carafate*] 1 gm PO ACHS #90 tab 10/28/20 Nepro Shake [Nepro*] 237 ml PO TID #60 can 11/07/20 Cholecalciferol (Vitamin D3) [Vitamin D 5,000 IU Cap*] 5,000 unit PO DAILY #30 cap 01/16/21 Hydrocodone 5/APAP 325 [[place] 5/325*] 1 tab PO Q6H PRN #30 tab 07/02/21 clonazePAM [Klonopin] 0.5 mg PO TID PRN #60 tablet 07/02/21 Heparin [Heparin 1,000 units/mL *] 6,000 unit IV EVERY HD PRN vial 07/31/21 Mannitol 25% [Mannitol*] 12.5 gm IV EVERY HD PRN vial 07/31/21 Metoclopramide [Reglan*] 5 ml PO TID PRN 07/31/21 Diet: Renal Activity: Fall precautions Followup: Jose Miguel Morin DO [Primary Care Provider] -
[2021-07-31 14:03] VITALS: BP 147/65; TEMP 97.7
[2021-07-31 15:35] LABS: Magnesium 1.4
[2021-07-31 17:25] VITALS: O2SAT 98
--- NOTE | 2021-07-31 21:05 | P.CNS ---
Date of Consult: 07/31/21 Reason for Consult: ESRD Requesting Physician: zabrina hollis Chief Complaint: Symptomatic Anemia History of Present Illness: Ms. Zaldivar is a 40 yo F with CHF, ESRD on HD, T2DM who was sent in from dialysis for blood transfusion. She denies active bleeding, melena, hematochezia. She has required blood transfusions in the past. She reports mild SOB. Denies lightheadness, fatigue. She had COVID last month and says she is still recover ing. She had a full dialysis session today. Nephrology consulted. Patient will be admitted for blood transfusion with dialysis in the morning. 19:21 This 40 yrs old Female presents to ER via Wheelchair with complaints of low rn hemoglobin. 19:21 Pt reports went to dialysis today, sent here for evaluation, told blood from 5 days ago rn showed low hemoglobin. Denies active bleeding, last blood transfusion a couple of months ago. Denies blood in stool or dark stool. No fever. Reports mild sob. Had full dialysis session today.. Onset: The symptoms/episode began/occurred at an unknown time. Severity of symptoms: At their worst the symptoms were mild in the emergency department the symptoms are unchanged. The patient has experienced a previous episode. The patient has been recently seen by a physician:. Allergies zolpidem tartrate [From Ambien] Allergy (Intermediate, Verified 10/17/16 23:08) Itching/Hives/Rash codeine [Codeine] Allergy (Verified 10/17/16 23:08) Hives fluphenazine enanthate [From Prolixin] Allergy (Verified 10/17/16 23:08) ARM NUMBNESS fluphenazine HCl [From Prolixin] Allergy (Verified 10/17/16 23:08) ARM NUMBNESS guaifenesin [From Prolex D] Allergy (Verified 10/17/16 23:08) Hives lisinopril Allergy (Verified 04/21/17 10:26) Anaphylaxis morphine Allergy (Verified 10/01/20 10:03) Itching Penicillins Allergy (Verified 10/17/16 23:08) Hives phenylephrine HCl [From Prolex D] Allergy (Verified 10/17/16 23:08) Hives nitrofurantoin Adverse Reaction (Verified 08/07/17 23:41) liver failure Home medications list reviewed: Yes Home Medications: Calcium Acetate [Phoslo*] 2 cap PO TIDWM 03/05/20 Divalproex Sodium [Divalproex Sodium ER] 500 mg PO BID 03/05/20 Sertraline [Zoloft*] 50 mg PO DAILY 03/05/20 Trazodone HCl 150 mg PO BEDTIME PRN PRN 03/05/20 Pantoprazole Sodium [Protonix] 1 tab PO DAILY 30 Days #30 tablet. 03/06/20 Gabapentin 1 tab PO BID 07/22/20 Metoprolol Succinate 25 mg PO DAILY 07/22/20 Pravastatin Sodium 1 tab PO DAILY 07/22/20 Doxazosin [Cardura*] 4 mg PO BEDTIME 09/30/20 Furosemide [Lasix*] 40 mg PO BID 09/30/20 Ondansetron [Zofran (Odt)*] 4 mg PO Q8H PRN 14 Days #30 tab 10/01/20 Ascorbate Calcium [Vitamin C] 500 mg PO TID #90 tablet 10/28/20 Sucralfate [Carafate*] 1 gm PO ACHS #90 tab 10/28/20 Nepro Shake [Nepro*] 237 ml PO TID #60 can 11/07/20 Cholecalciferol (Vitamin D3) [Vitamin D 5,000 IU Cap*] 5,000 unit PO DAILY #30 cap 01/16/21 Hydrocodone 5/APAP 325 [[place] 5/325*] 1 tab PO Q6H PRN #30 tab 07/02/21 clonazePAM [Klonopin] 0.5 mg PO TID PRN #60 tablet 07/02/21 Heparin [Heparin 1,000 units/mL *] 6,000 unit IV EVERY HD PRN vial 07/31/21 Mannitol 25% [Mannitol*] 12.5 gm IV EVERY HD PRN vial 07/31/21 Metoclopramide [Reglan*] 5 ml PO TID PRN 07/31/21 - Past Medical/Surgical History Diabetic: Yes -: DM Type 2 -: Seizure disorder -: ESRD on HD -: DM Gastroparesis -: DM Neuropathy -: Insomnia -: Obesity -: JAYLA -: Hypertension -: Post traumatic stress disorder -: Schizoaffective disorder -: CHF, diastolic -: I/D of the right elbow -: 2 previous C-sections -: Tubal ligation Psychosocial/ Personal History: She is , she has 2 children, she does not work. She lives with her boyfriend and daughter. - Family History Mother Medical History: Hypertension, Diabetes, Cancer, Other (see notes) Notes: hypothyroid, asthma, breast cancer Father Medical History: Diabetes, Cancer Notes: - stomach/ lung/ prostate cancer, diabetes - Social History Smoking Status: Current some day smoker Alcohol use: No CD- Drugs: No Caffeine use: No Place of Residence: Home Review of Systems 10-point ROS is otherwise unremarkable General: Weakness, Malaise Respiratory: SOB with Excertion Neurological: Weakness Physical Examination Temp Pulse Resp BP Pulse Ox 97.7 F 77 16 147/65 H 93 07/31/21 12:00 07/31/21 12:00 07/31/21 12:00 07/31/21 12:00 07/31/21 12:00 General: In no apparent distress, Oriented x3, Cooperative HEENT: Atraumatic Neck: Supple Respiratory: Clear to auscultation bilaterally Cardiovascular: No edema, Regular rate/rhythm Gastrointestinal: Soft and benign, Non-distended Musculoskeletal: No clubbing, No contractures Integumentary: No rashes, No cyanosis Neurological: Normal speech Laboratory Data (last 24 hrs) 07/30/21 20:00: Sodium 137, Potassium 4.2, BUN 22 H, Creatinine 4.59 H, Glucose 197 H Imagings Data: EXAM DESCRIPTION: RAD - Chest Single View - 07/30/2021 7:57 pm CLINICAL HISTORY: ESRD, sob COMPARISON: Chest Single View dated 06/30/2021; Chest Single View dated 03/31/2021; Chest Single View dated 02/17/2021; Chest Single View dated 10/10/2020 FINDINGS: Lines: Right IJ approach dialysis catheter. Lungs: No evidence of edema or pneumonia. Pleural: No significant pleural effusions or pneumothorax. Cardiac: Cardiomegaly. Bones: No acute fractures. IMPRESSION: No acute cardiopulmonary disease. Conclusions/Impression: ESRD -Acute HD today HTN with CKD/ CHF -Restart Metoprolol Diastolic CHF, chronic -Low sodium diet DM II with CKD -RISS Moderate malnutrition -Recommend Nepro Anemia in CKD -Retacrit prn -Transfuse PRBC with HD CKD MBD -Recommend Vitamin D -Restart Phoslo Thank you kindly for the consultation.
== END 2021-07-31 05:10 | disposition home or self-care (01) ==
LOC: ER 18:37 → ERHOLD 21:44 → 2ND 22:57
PROVIDERS: ADMIT Internal Medicine; ATTEND Internal Medicine
DX: I13.2 Hypertensive heart and chronic kidney disease with heart failure and with stage 5 chronic kidney disease, or end stage renal disease (principal); E11.22 Type 2 diabetes mellitus with diabetic chronic kidney disease; N18.6 End stage renal disease; I50.32 Chronic diastolic (congestive) heart failure; D63.1 Anemia in chronic kidney disease; Z99.2 Dependence on renal dialysis; K29.70 Gastritis, unspecified, without bleeding; G40.909 Epilepsy, unspecified, not intractable, without status epilepticus; K31.84 Gastroparesis; E11.43 Type 2 diabetes mellitus with diabetic autonomic (poly)neuropathy; E11.40 Type 2 diabetes mellitus with diabetic neuropathy, unspecified; G47.00 Insomnia, unspecified; G47.33 Obstructive sleep apnea (adult) (pediatric); E44.0 Moderate protein-calorie malnutrition; E66.9 Obesity, unspecified; Z68.28 Body mass index [BMI] 28.0-28.9, adult; F43.10 Post-traumatic stress disorder, unspecified; F25.9 Schizoaffective disorder, unspecified; Z87.11 Personal history of peptic ulcer disease; Z86.16 Personal history of COVID-19; Z20.822 Contact with and (suspected) exposure to COVID-19; Z88.6 Allergy status to analgesic agent; Z88.0 Allergy status to penicillin; Z88.8 Allergy status to other drugs, medicaments and biological substances; Z98.51 Tubal ligation status; Z82.49 Family history of ischemic heart disease and other diseases of the circulatory system; Z83.3 Family history of diabetes mellitus; Z80.3 Family history of malignant neoplasm of breast; Z80.0 Family history of malignant neoplasm of digestive organs; Z80.1 Family history of malignant neoplasm of trachea, bronchus and lung; Z80.42 Family history of malignant neoplasm of prostate
CPT/HCPCS: 36430; 85025 ×2; 80048; 36415; 86900; 83735; 86850; 84100; 85610; 86901; 82947 ×3; 85730; 80053; 71045; 90935; 99285; U0003; J0360; P9016 ×2; J2405; G0378 ×2

== ENCOUNTER 2021-08-07 21:46 | Observation (INO) | payer OTHER ==
--- OUTSIDE RECORDS SUMMARY | 2021-08-07 22:05 | XMS REPORT | Continuity of Care Document ---
:1980 Author Organization [facility] t Address [address] [place] [address] Care Team Providers Name Role Phone Vivien Morin DO Primary Care Physician Kasey Ann RN Attending Clinician Anthony Attending Clinician Unavailable Deshazo_T Attending Clinician Unavailable Pat BURNS, Cathie Attending Clinician Vipin Dhaliwal MD Attending Clinician Ramírez Nagel MD Attending Clinician Kalen Mckenzie Attending Clinician Endy BURNS Attending Clinician Laquita Dodd Attending Clinician Manuel Diaz MDviraj Attending Clinician Jose Carlos BURNS V. Attending [...] Policy Number Effective Date Expiration Date S [facility] [id number] 2021 (MEDICARE 00:00:00 REPLACEMENT HMO) Advance Directives Directive Decision Effective Termination Comments Source Date Date Healthcare Agents on N/A [facility] FileNameRelationshFl[facility] Agent Medical RelationshipCommunicationWernersville State [facility] FoundSibling3 - First Alternate Agent (Medical Power of Traffic Police Officer) Problems Condition Condition Condition Status Onset Resolution Last Treating Co mments Source Name Details Category Date Date Treatment Clinician Date AVF AVF Disease Active Univers (arteriove (arteriove 9 it y of nous nous 00:00: [place] fistula) fistula) 00 Medica l Branch End [...] Memoria HELENA/IBS-D 7 21:41:00 l /ANEMIA 00:00: [place] GASTROPARE 00 HELENA/IBS-D /ANEMIA Active 01/03/2021 [facility] NEW Diagnosis Active 2020-12-24 Mem oria PATIENT GI 4-26 10:39:00 l CONSULT NEW 00:00: Vin REFRACTORY PATIENT GI 00 GASTRO CONSULT REFRACTORY GASTRO Active 10/14/2020 [facility] Malfunctio Malfunctio Disease Active Overview : Univers n of n of 6-03 Formattin ity of arterioven arterioven 00:00: g of this [place] ous ous 00 note Medical dialysis dialysis might be [place] ch fistula, fistula, different initial initial from the encounter encounter original. Added automatic ally from request for surgery [id number] Candidiasi Candidiasi Disease Active U nivers s of vulva s of vulva 2-18 it y of [place] vagina [place] Screening Screening Disease Active Uni vers for breast for breast 2-18 it y of cancer cancer 00:00: [place] 00 Medical Branch NEW Diagnosis Active 2018-07-26 Mem oria EVALUATION - 09:39:00 l NEW 00:00: [place] EVALUATION 00 Active 07/12/2018 [facility] Pyogenic Pyogenic Disease Active 2017-06 Overview: Un lori granuloma granuloma 0-17 Formattin i ty of of of 00:00: g of this [place] conjunctiv conjunctiv 00 note Me dical a, right a, right might be [place] ch different from the original. Added automatic ally from request for surgery [id number] Right eye Right eye Disease Active Overview: Univers affected affected 02-22 Formattin ity of by by 00:00: g of this [place] proliferat proliferat 00 note Me dical montse montse might be Branch diabetic diabetic different retinopath retinopath from the y with y with original. traction traction Added retinal retinal automatic detachment detachment ally from not not request involving involving for macula, macula, surgery associated associated [id number] with type with type 1 diabetes 1 diabetes mellitus mellitus Pain Pain Disease Active Univers management management 01-18 it y of 00:00: [place] 00 Medical Branch Blind Blind Disease Active Overview: Univer s painful painful 12-16 Formattin ity o f eye eye 00:00: g of this [place] 00 note Medical might be Branch different from the original. Eviscerat ion OS on 8 - Dr. 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 Added automatic ally from request for surgery [id number] ESRD (end ESRD (end Disease Active Overview: Univers stage stage 6-12 Formattin ity of renal renal 00:00: g of this [place] disease) disease) 00 note Medica l on on might be Branch dialysis dialysis different from the original. Added automatic ally from request for surgery [id number] Diabetes Diabetes Disease Active Metho di mellitus [...] Added automatic ally from request for surgery [id number] Neovascula Neovascula Disease Active 2018-0 U nivers r r 1-18 ity of glaucoma, glaucoma, [place] left eye left eye 00 Medica l Branch Increased Increased Disease Active Uni vers intraocula intraocula 1-18 it y of r pressure r pressure [place] Fall Fall Disease Active 2016-06 Univers 0-13 ity of 00:00: [place] 00 Medical Branch Pneumonia Pneumonia Disease Active 2016-06 Uni vers 0-11 ity of 00:00: [place] Medical Branch Diabetes Diabetes Disease Active 2016-06 Overview: Un lori mellitus mellitus 0-05 Formattin ity of 00:00: g of this [place] 00 note Medical might be Branch different from the original. Added automatic ally from request for surgery [id number] Pseudotumo Pseudotumo Disease Active U nivers r cerebri r cerebri 9-25 ity of 00:00: [place] 00 [facility] Branch Liver Liver Disease Active [facility] [...] ve 7-16 [facility]: [facility] Peripheral Peripheral Disease Active U viviana neuropathy neuropathy 7-16 it y of 00:00: [place] [address] Medical Branch ACUTE RESP Diagnosis Active 2016-09-09 Memoria FAILURE 2- 09:11:00 l ACUTE 00:00: [place] RESP 00 FAILURE Active 07/23/2016 [facility] CONGESTION Diagnosis Active 2016-07-24 Memoria AMD 2- 01:49:00 l DIARRHEA 00:00: [place] CONGESTION 00 AMD DIARRHEA Active 07/23/2016 [facility] Congestive Congestive Disease Active 2015-06 U T heart heart - Health failure failure 00:00: (CHF) (CHF) 00 SOB/SWELLI Diagnosis Active 2015-062016-06-10 [facility] NG 2- 15:48:00 l 00:00: [place] SOB/SWELLI 00 NG Active 6 [facility] CHF/RENAL Diagnosis Active 2015-062016-06-24 Memoria DISEASE 2- 15:35:00 l 00:00: [place] CHF/RENAL 00 DISEASE Active 06/10/2016 [facility] Obesity Obesity Disease Active 2015-06 Univers (BMI (BMI 0-12 ity of 30-39.9) 30-39.9) 00:00: [place] [address] Medical Branch Hyperosmol Hyperosmol Disease Active 2015-06 U viviana ar ar 0-12 ity of non-ketoti non-ketoti [place] state in c state in 00 Me dical patient patient Branch with 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 Hyperglyce Hyperglyce Disease Active 2015-06 U viviana maryam maryam 0-11 ity of 00:00: [place] [address] Medical Branch Diabetic Diabetic Disease Active Unive rs ulcer of ulcer of 5-07 ity of both feet both feet 00:00: Amisha lombardo associated associated 00 Me dical with type with type Bran ch 2 diabetes 2 diabetes mellitus mellitus SANJUANA (acute SANJUANA (acute Disease Active U viviana kidney kidney 5-07 ity of injury) injury) 00:00: [place] [address] Medical Branch Depression Depression Disease Active U [...] 00:00: [place] cancer in cancer in 00 [facility] female female Branch Family Family Disease [...] Vin ABDOMINAL 00 PAIN, SEIZURES Active 06/26/2013 [facility] ABD PAIN Diagnosis Active 2012-062013-04-19 M emoria 0- 21:51:00 l ABD PAIN 19:00: Jake n 00 Active 04/14/2013 [place] GASTROPERI Diagnosis Active 2012-09-13 Memoria SIS 2-12 15:17:00 l 00:00: [place] GASTROPERI 00 SIS Active 08/02/2012 [facility] ABDOMINAL Diagnosis Active 2012-03-14 Memoria PAIN 03-14 16:56:00 l 14:00: [place] ABDOMINAL 00 PAIN Active 03/14/2012 [facility] NAUSEA, Diagnosis Active 2012-03-14 Me moria VOMITING 03-14 13:25:00 l NAUSEA, 08:00: [place] VOMITING 00 Active 03/14/2012 [facility] N/V Diagnosis Active 2011-12-08 Mem oria INABILITY 11-27 11:14:00 l TO N/V 00:00: [place] TOLERATE INABILITY 00 PO TO TOLERATE PO Active 2 [facility] VOMITTING Diagnosis Active 2011-11-28 Memoria 11-27 16:28:00 l 00:00: [place] VOMITTING 00 Active 11/28/2011 [facility] VOMITTING, Diagnosis [facility] HIGH BLOOD 09-17 09:45:00 l SUGAR 00:00: [place] VOMITTING, 00 HIGH BLOOD SUGAR Active 09/18/2011 [facility] Methicilli Problem Active 2021-01-31 M emoria n 08-31 22:29:25 l resistant 00:00: [place] Staphyloco Methicilli 00 ccus n aureus resistant (organism) Staphyloco ccus aureus (organism) Active 09/01/2011 Problem 01/31/2021 09/01/11 - Elbow woundProbl em added by Discern Expert. [facility] MRSA Problem Active 2012-03-16 Memor ia - 09:11:30 l MRSA 00:00: [place] 00 Active 09/01/2011 Problem 03/16/2012 - Elbow [id number] emily added by Discern Expert. [facility] VOMITING, Diagnosis Active 2011-09-01 Memoria BLOOD 08-30 03:19:00 l SUGAR 00:00: [place] READINGS VOMITING, 00 HIGH BLOOD SUGAR READINGS HIGH Active 08/31/2011 [facility] ELBOW Diagnosis Active 2011-09-10 Mem oria ABSCESS/HY 08-30 16:26:00 l PERGLYCEMI ELBOW 00:00: Nidia nn A ABSCESS/HY 00 PERGLYCEMI A Active 08/31/2011 [facility] Hypokalemi Problem Active 2012-03-16 M emoria a 3-04 09:11:30 l 00:00: [place] Hypokalemi 00 a Active 08/23/2011 Problem 03/16/2012 [facility] DKA Diagnosis Active 2011-08-24 Mem oria 11:27:00 l DKA 00:00: [place] 00 Active 08/19/2011 [facility] VOMITING Diagnosis Active 2011-08-19 M emoria 16:21:00 l VOMITING 00:00: Jake n 00 Active 08/19/2011 [facility] Final: Problem 2016-08-02 Memor ia Acute 02:46:22 l respirator Final: Herm naeem y failure, Acute unspecifie respirator d whether y failure, with unspecifie hypoxia or d whether hypercapni with a hypoxia or hypercapni a 08/02/2016 [facility] Hypoglycem Problem Inactiv 2012-03-16 Memoria ia e 09:11:30 l [place] Hypoglycem ia Inactive Problem 03/16/2012 [facility] Hypoglycem Problem Inactiv 2013-04-22 Memoria ia e 04:46:33 l (disorder) Jake n Hypoglycem ia (disorder) Inactive Problem 04/22/2013 [facility] Gastropare Problem Resolve 2021-01-31 Memoria sis d 22:29:25 l (disorder) Jake gonzalez Gastropare sis (disorder) Resolved Problem 01/31/2021 [facility] Hypertensi Problem Resolve 2021-01-31 Memoria ve d 22:29:25 l disorder, [place] systemic Hypertensi arterial ve (disorder) disorder, systemic arterial (disorder) Resolved Problem 01/31/2021 [facility] Psychiatri Problem Resolve 2021-01-31 Memoria c d 22:29:25 l behavioral Jake n disability Psychiatri (finding) c behavioral disability (finding) Resolved Problem 01/31/2021 [facility] Seizure Problem Resolve 2021-01-31 Mem oria (finding) d 22:29:25 l Seizure Vin (finding) Resolved Problem 01/31/2021 [facility] Hypertensi Problem Active 2012-03-16 M emoria on 09:11:30 l [place] Hypertensi on Active Problem [facility] Hypomagnes Problem Active 2013-04-22 M emoria emia 04:46:33 l [place] Hypomagnes emia Active Problem 04/22/2013 [facility] Nausea and Problem Active 2012-03-16 M emoria vomiting 09:11:30 l Nausea Vin and vomiting Active Problem 03/16/2012 [facility] ENCNTR FOR Diagnosis Active 2020-12-24 Memoria GENERAL 10:39:00 l ADULT ENCNTR [place] MEDICAL FOR EXAM W/ GENERAL ADULT MEDICAL EXAM W/ Active [facility] DMI Diagnosis Active 2011-08-24 Mem oria KETOACD 11:27:00 l UNCONTROLD DMI Jake n KETOACD UNCONTROLD Active [facility] OTHER Diagnosis Active 2011-09-10 Mem oria GENERAL 16:26:00 l SYMPTOMS OTHER [place] GENERAL SYMPTOMS Active [facility] HEART Diagnosis Active 2016-06-24 Mem oria FAILURE, 15:35:00 l UNSPECIFIE HEART Nidia nn D FAILURE, UNSPECIFIE D Active [facility] ACUTE Diagnosis Active 2016-09-09 Mem oria RESPIRATOR 09:11:00 l Y FAILURE, ACUTE Nidia nn UNSP W RESPIRATOR HYPOXI Y FAILURE, UNSP W HYPOXI Active [facility] Nausea and Problem Resolve 2021-01-31 2021-01-31 Memoria vomiting d 6-10 22:29:25 22:29:25 l (disorder) Nausea 00:00: Herm naeem and 00 vomiting (disorder) Resolved 11/29/2011 Problem 01/31/2021 [facility] Hypokalemi Problem Resolve 2021-01-31 2021-01-31 Memoria a d 3-04 22:29:25 22:29:25 l (disorder) 00:00: Jake n Hypokalemi 00 a (disorder) Resolved 08/23/2011 Problem 01/31/2021 [facility] Disorder Problem Resolve 2021-01-31 2021-01-31 Memoria of d 3-04 22:29:25 22:29:25 l magnesium Disorder 00:00: Her [place] metabolism of 00 (disorder) magnesium metabolism (disorder) Resolved 08/23/2011 Problem 01/31/2021 [facility] Hyperglyce Problem Resolve 2021-01-31 2021-01-31 Memoria maryam d 3 22:29:25 22:29:25 l (disorder) 00:00: Jake n Hyperglyce 00 maryam (disorder) Resolved 08/20/2011 Problem 01/31/2021 [facility] Ketoacidos Problem Resolve 2021-01-31 2021-01-31 Memoria is in d 22:29:25 22:29:25 l diabetes 00:00: [place] mellitus Ketoacidos 00 (disorder) is in diabetes mellitus (disorder) Resolved 08/19/2011 Problem 01/31/2021 [facility] DKA Problem Resolve 2013-04-22 2013-04-22 Memoria (diabetic d 04:46:33 04:46:33 l ketoacidos DKA 00:00: Jake gonzalez es) (diabetic 00 ketoacidos es) Resolved 08/19/2011 Problem 04/22/2013 [facility] History of Past Illness Condition Condition Condition Status Onset Resolution Last Treating Co mments Source Name Details Category Date Date Treatment Clinician Date Discharge Problem 2014-06-28 2014-06-28 Memoria Diagnosis: 1-06 16:34:37 16:34:37 l Gastropare 06:00: Jake n sis Discharge 00 Diagnosis: Gastropare sis 06/26/2014 06/28/2014 [facility] Hyperglyce Problem Inactiv 2012-03-16 2012-03-16 Memoria maryam e 3- 09:11:30 09:11:30 l 00:00: [place] Hyperglyce 00 maryam Inactive 08/20/2011 Problem 03/16/2012 [facility] Allergies, Adverse Reactions, Alerts Allergy Allergy Status [...] Liver failure Zolpidem Drug Active Other (See confusion C [...] of 00:00: [place] 00 Medical Branch Nitrofur Propensi Active Other (See Other Me [...] Active High Swelling Univer s C INGREDI 625 ity of TROMETHA 00:00: [place] MINE 00 [...] penicill Active Memori a ins ins l [place] codeine codeine Active Memoria l [place] morphine morphine Active Memori a l Vin lisinopr lisinopr Active Memori a il il l [place] Adhesive Adhesive Active Memori a Tape Tape l [place] Ambien Ambien Active Memoria l Vin Prolex Prolex Active Memoria DM DM l Vin penicill Drug Active [facility] lisinopr Drug Active [facility] Ambien Drug Active [facility] Prolixin Drug Active [facility] penicill Drug Active [facility] lisinopr Drug Active [facility] Ambien Drug Active [facility] Prolixin Drug Active [facility] Tape Other Active [facility] penicill Drug Active [facility] lisinopr Drug Active [facility] Ambien Drug Active [facility] Prolixin Drug Active [facility] codeine Drug Active [facility] penicill Drug Active [facility] lisinopr Drug Active [facility] Ambien Drug Active [facility] Prolixin Drug Active [facility] codeine Drug Active [facility] penicill Drug Active [facility] lisinopr Drug Active [facility] Ambien Drug Active [facility] Prolixin Drug Active [facility] penicill Drug Active [facility] lisinopr Drug Active [facility] Ambien Drug Active [facility] Prolixin Drug Active [facility] penicill Drug Active [facility] lisinopr Drug Active [facility] Ambien Drug Active [facility] Prolixin Drug Active [facility] Social History Social Habit Start Date Stop Date Quantity Comments Source History of tobacco Cigarette Smoker [facility] use [facility] Exposure to Yes [facility] SARS-CoV-2 (event) Hospit al Alcohol intake 2021-06-18 2021-06-18 Ex-drinker [facility] 00:00:00 00:00:00 (finding) Hospital Cigarettes smoked 2021-05-14 2021-05-14 [facility] current (pack per 00:00:00 00:00:00 Hospita l day) - Reported Cigarette 2021-05-14 2021-05-14 [facility] pack-years 00:00:00 00:00:00 Hospital Tobacco use and 2021-05-14 2021-05-14 Smokeless tobacco Me thodist exposure 00:00:00 00:00:00 non-user Hospital Social History 2020-12-24 2020-12-24 [facility] fatou 15:49:37 15:49:37 Tobacco Comment 2017-11-12 2017-11-12 5 cigarettes per Met hodist 00:00:00 00:00:00 day Hospital Sex Ass[birth year] At [birth year] [facility] 00:00:00 00:00:00 Hospital Smoking Status Start Date Stop Date Source Smokes tobacco daily 2021-05-14 00:00:00 [facility] Former smoker 2020-06-27 00:00:00 2020-06-27 00:00:00 [facility] Medications Ordered Filled Start Stop Current Ordering Indication Dosage Frequency Signature Comments Components Source Medication Medication Date Date Medication? Clinician (SIG) Name Name glipiZIDE Yes 5mg Take 5 mg Met hodi (GLUCOTROL) 1-[address] 5 MG tablet 13:02: daily. Hosp jo-ann 39 l calcium Yes 667mg Q.[id number] Take 667 Methodi acetate 1-[id number] (PHOSLO) 13:02: 3D mouth [...] 39 nightly. l calcium 2021-0 Yes 1334mg Q.[id number] Take 1,334 Methodi acetate,domingo 1-18 [id number] mg by s t sphat bind, 13:02: 3D mouth 3 Hos whit (Phoslyra) 39 (three) l 667 mg (169 times a mg day. calcium)/5 mL solution cyproheptad Yes 4mg Q.[id number] Take 4 mg Methodi ine -[id number] (PERIACTIN) 13:02: 3D (three) Hos whit 4 mg tablet 39 times a l day as needed for allergies. buPROPion Yes 300mg QD Take 300 Met hodi XL 1-[address] (WELLBUTRIN 13:02: mouth Hospi ta XL) 300 MG 39 daily. l 24 hr tablet ascorbic Yes 500mg Q.[id number] Take 500 Methodi acid, -[id number] vitamin C, 13:02: 3D [...] mg at night vancomycin 2020-06- No 750mg Q.[id number] Infuse 750 Methodi 750 mg in 07-08 [id number] mg into a [address] sodium 00:00: 05:59 3W venous Hospita chloride 00 :00 catheter 3 l 0.9% 250 mL (three) IVPB times a week for 19 days. Administer 3 times weekly in dialysis HYDROcodone 2020-06- No [id number] 1{tbl} Q6H Take 1 Methodi -acetaminop 06-24 [...] 30 per tablet days. HYDROcodone 2020-06 No [id number] 2{tbl} Q8H Take 2 Methodi -acetaminop 07-26 12-13 tablets by s t hen (NORCO) 00:00: 05:59 mouth Hosp jo-ann 5-325 mg 00 :00 every 8 l per tablet (eight) hours as needed for severe pain for up to 7 days .acute pain. Max Daily Amount: 6 tablets predniSONE 2020-06- No [id number] Take M ethodi (DELTASONE) 07-18-05 Prednisone s [...] 0-03 by mouth. ity of tablet 11:08: [place] [address] Medical Branch aspirin 81 2020-06 Yes 81mg Take 1 Unive rs mg chewable 0-03 tablet by ity of tablet 11:08: mouth [place] [address] daily. Medical Branch divalproex 2020-06 Yes 500mg Take 500 Un lori ER 0-01 mg by ity of (DEPAKOTE 23:08: mouth 2 [place] ER) 500 mg 36 (two) Medical 24 hr times Branch tablet daily. gabapentin 2020-06 Yes 100mg Take 100 Un lori 100 mg 0-01 mg by ity of capsule 23:08: mouth 2 [place] [address] (two) Medical times Branch daily. vitamin C 2020-06 Yes 2000mg Take 2,000 Univers with sia 0-01 mg by ity of hips 23:08: mouth 2 [place] (VITAMIN C) 36 (two) Medical 1,000 mg times Branch tablet daily. metoprolol 2020-06 Yes 50mg Take 50 mg U nivers tartrate 50 0-01 by mouth ity of mg tablet 23:08: daily. [address] Branch folic 2020-06 Yes 800mg Take 800 Univers acid/vit B 0-01 mg by ity of complex and 23:08: mouth [place] C 36 daily. Medical (DIALYVITE Branch 800 ORAL) linagliptin 2020-06 Yes Take by Un lori (TRADJENTA) 0-01 mouth. ity of 5 mg tablet 23:08: [address] Branch spironolact 2020-06 Yes 50mg Take 50 mg Univers one 50 mg 0-01 by mouth ity of tablet 23:08: daily. [address] Branch pravastatin 2020-06 Yes 40mg Take [...] by mouth ity of tablet 23:08: daily. [place] [address] Medical Branch calcium 2020-06 Yes 667mg Take 667 Unive rs acetate 667 0-01 mg by ity of mg capsule 23:08: mouth 3 [place] (three) Medical times Branch daily with meals. cetirizine 2020-06 Yes 1{tbl} Take 1 Uni vers HCl/pseudoe 0-01 tablet by ity of phedrine 23:08: mouth [place] (ZYRTEC-D 36 daily. Medical ORAL) Branch furosemide 2020-06 Yes 40mg Take 40 mg U nivers 40 mg 0-01 by mouth 2 ity of tablet 23:08: (two) [place] [address] times Medical daily. Branch divalproex 2020-06 Yes 500mg Take 500 Un lori ER 0-01 mg by ity of (DEPAKOTE 23:08: mouth 2 [place] ER) 500 mg (two) Medical 24 hr times Branch tablet daily. gabapentin 2020-06 Yes 100mg Take 100 Un lori 100 mg 0-01 mg by ity of capsule 23:08: mouth 2 [place] [address] (two) Medical times Branch daily. vitamin C 2020-06 Yes 2000mg Take 2,000 Univers with sia 0-01 mg by ity of hips 23:08: mouth 2 [place] (VITAMIN C) (two) Medical 1,000 mg times Branch tablet daily. metoprolol 2020-06 Yes 50mg Take 50 mg U nivers tartrate 50 0-01 by mouth ity of mg tablet 23:08: daily. [place] [address] Medical Branch folic 2020-06 Yes 800mg Take 800 Univers acid/vit B 0-01 mg by ity of complex and 23:08: mouth [place] C daily. Medical (DIALYVITE Branch 800 ORAL) linagliptin 2020-06 Yes Take by Un lori (TRADJENTA) 0-01 mouth. ity of 5 mg tablet 23:08: [place] [address] Medical Branch spironolact 2020-06 Yes 50mg Take 50 mg Univers one 50 mg 0-01 by mouth ity of tablet 23:08: daily. [place] [address] Medical Branch pravastatin 2020-06 Yes 40mg Take 40 mg Univers 40 mg 0-01 by mouth ity of tablet 23:08: daily. [place] [address] Medical Branch mv-mn/iron/ 2020-06 Yes 1{capsu Take 1 U nivers folic 0-01 le} capsule by ity of acid/herb 23:08: mouth [place] 190 36 daily. Medical (VITAMIN D3 Branch COMPLETE ORAL) SERTraline 2020-06 Yes 50mg Take 50 mg U nivers 50 mg 0-01 by mouth ity of tablet 23:08: daily. [address] Branch calcium 2020-06 Yes 667mg Take [...] janice - (Same as: l 01:36: Mylicon) [place] 00 epoetin Yes 2,000 unit Mendoza janice [...] tab, PO, l tablet 19:33: BID, 0 [place] 00 Refill(s) buPROPion Yes 75 mg = 1 Mem oria 75 mg oral 8-10 tab, PO, l tablet 19:33: Daily, # [place] 00 14 tab, 0 Refill(s) Norvasc No [...] Oxide 01-23 (Same as: l 22:54: Mag-Ox [place] 00 400) Magnesium oxide 268hh=564l g elemental magnesium Dose=____m g magnesium oxide (___mg elemental magnesium) Coreg No Notes: Memoria 01-23 Give with l 02:00: food. [place] 00 (Same As: Coreg) Buspar No Notes: Memoria 01-22 (Same As: l 22:00: BuSpar) [place] 00 Fentanyl No Notes: Memoria 01-22 (Same as: l 21:06: Sublimaze) Vin 00 Preservat montse free. Norvasc No Notes: Memoria 8- (Same as: l 16:47: Norvasc) [place] 00 Wellbutrin No Notes: Memor ia 01-22 (Same As: l 16:00: Wellbutrin ) pantoprazol No Notes: For Memoria e 01-22 IV push l 14:00: reconstitu te with 10 ml 0.9% sodium chloride and push over 2 minutes. (Same as: Protonix) Aspirin 81 No Notes: Memor ia MG Chewable 01-22 Take with l Tablet 14:00: food. Vni 00 Vitamin D3 No Notes: Memor ia [...] Same as: l 200 mL 18:26: Cardene [place] (Titrate.) 00 Concentrat IV 40 mg ion: (0.2 mg /1 ml ) Cyproheptad No 4 mg, 1 Mem oria ine 01-21 tab, l 18:00: Route: PO, Vin Drug form: TAB, TID, Dosing Weight 72, kg, Start date: 01/21/21 13:00:00 CDT, Duration: 30 day, Stop date: 02/20/21 9:00:00 CDT Albuterol No Notes: SEE Me moria 01-21 RT l 17:49: DOCUMENTAT [place] ION (Same as: Proventil) albuterol No 180 [...] 0.9% 01-21 Same as: l 17:31: BD [place] Posiflush Sterile propofol 10 No Notes: If M emoria mg/mL 01-21 Diprivan - l (Titrate.) 17:31: change Nidia nn IV 1,000 mg 00 bottle & tubing every 12 hr Per state nursing law propofol can only be given by a nurse if patient is intubated or being intubated (unless the nurse is a NET SOFTWARE ARCHITECT). Same as: Diprivan midazolam No Route: IV, Me moria (ANES) 01-21 Drug form: l 17:18: SOLN, [place] 00 ONCE, Stop date: 01/21/21 12:18:00 CDT fentaNYL No Route: IV, Mem oria (ANES) 01-21 Drug form: l 17:18: INJ, ONCE, Vin Stop date: 01/21/21 12:18:00 CDT niCARdipine No [...] janice 01-21 (Same as: l 13:16: Mylicon, [place] 00 Phazyme, Genasyme) calcium No See Memoria [...] n [XIFAXAN] 00 tab, 2 Refill(s), Pharmacy: [facility], 154.94, cm, 12/24/20 10:43:00 CDT, Height, 71.818, kg, 12/24/20 10:43:00 CDT, Weight {2 (480 ML Yes See Memoria Magnesium 12-24 Instructio l Sulfate 18:12: ns, take Jake n 0.0277 00 as MEQ/ML / directed, potassium give sulfate clenpiq if 0.0374 not MEQ/ML / covered by sodium insurance, sulfate # 1 ea, 0 0.257 Refill(s), MEQ/ML Oral Pharmacy: Solution) } [facility] [Suprep 808, Bowel Prep 154.94, [...] 0 Memor ia 7-06 Refill(s) l 15:53: [place] 00 Dialyvite 0 Yes 0 Memoria 5000 [...] Take 7.5 UT (Buspar) 6-19 mg by [facility] 7.5 MG 00:00: mouth 2 tablet 00 (two) times a day. buPROPion Yes 300mg Take 300 UT XL 6-19 mg by [facility] (Wellbutrin 00:00: mouth 1 XL) 300 [...] hr each day. tablet ascorbic Yes 500mg Q.[id number] Take 500 UT acid 5-15 [id number] mg by [facility] (Vitamin C) 00:00: 3D mouth 3 500 MG 00 (three) tablet times a day. sucralfate Yes 1{tbl} QD Take 1 UT (Carafate) 5-10 tablet by [facility] th 1 g tablet 00:00: mouth 1 00 (one) time each day. zinc Yes DAILY [facility] sulfate 50 5-10 ity of mg zinc 00:00: [place] (220 mg) 00 Medical capsule Branch ondansetron 0 Yes 4mg Take 4 mg U nivers 4 mg 4-13 by mouth ity of disintegrat 00:00: [place]. [place] tablet 00 [facility] GLIPIZIDE 5 2020-0 Yes [id number] TAKE 1 Univers mg tablet -06 TABLET [...] by ity o f 00:00: mouth at [place] 00 bedtime. Medical Branch doxazosin 4 Yes 4mg Take 1 Univ ers mg tablet 1-07 tablet by ity o f 00:00: mouth at [place] 00 bedtime. Medical Branch glipiZIDE 5 2019-06- No [id number] 5mg Take 1 Univers mg tablet 07-01 [...] by ity of tablet 00:00: mouth at [place] [address] bedtime. Medical Branch traZODone Yes 150mg Take 150 Uni vers 150 mg 8-13 mg by ity of tablet 00:00: mouth at [place] [address] bedtime. Medical Branch erythromyci 2020- No [id number] .5[in_u Place 0.5 Univers n 5 mg/gram [...] l 59 Center hydrALAZINE 2017-0 Yes 100mg Q.[id number] Take [address] [facility] (APRESOLINE 7-20 [id number] mg by L ukes - ) 100 MG 15:20: 3D mouth 3 Medica l tablet 59 (three) Center times daily. magnesium 2017-0 Yes 400mg QD Take [address] [facility] oxide 7-20 mg by [facility] (MAG-OX) 15:20: mouth Medical 400 mg 59 daily. Center tablet metoclopram 2017-0 Yes 10mg Q.[id number] Take [address] [facility] gadiel HCl 7-20 [id number] by mouth 3 [facility] - (REGLAN) 10 [...] l 59 Center hydrALAZINE 2017-0 Yes 100mg Q.[id number] Take [address] [facility] (APRESOLINE 7-20 [id number] mg by L ukes - ) 100 MG 15:20: 3D mouth 3 Medica l tablet 59 (three) Center times daily. magnesium 2017-0 Yes 400mg QD Take [address] [facility] oxide 7-20 mg by [facility] - (MAG-OX) 15:20: mouth Medical 400 mg 59 daily. Center tablet metoclopram 2017-0 Yes 10mg Q.[id number] Take [address] [facility] gadiel HCl 7-20 [id number] by mouth 3 [facility] - (REGLAN) 10 [...] l 59 Center hydrALAZINE 2017-0 Yes 100mg Q.[id number] Take [address] [facility] [address] (APRESOLINE 7-20 [id number] mg by L ukes - ) 100 MG 15:20: 3D mouth 3 Medica l tablet 59 (three) Center times daily. magnesium 2017- Yes 400mg QD Take [address] [facility] oxide 7-20 mg by [facility] - (MAG-OX) 15:20: mouth Medical 400 mg 59 daily. Center tablet metoclopram 2017-0 Yes 10mg Q.[id number] Take [address] [facility] gadiel HCl 7-20 [id number] by mouth 3 [facility] - (REGLAN) 10 [...] Vin 00 30 tab, 0 Refill(s), Pharmacy: [facility] [id number] Bumex No 0.5 mg, Memoria 2-09 Route: PO, l 15:00: Drug form: Vin 00 TAB, Daily, Dosing Weight 92.273, kg, Start date: 07/30/16 9:00:00 FLOOR MOLDER, Duration: 30 day, Stop date: 08/28/16 9:00:00 FLOOR MOLDER Lasix 2016-0 No Notes: Memoria 2-08 (Same as: l 20:05: Lasix) [place] 00 May cause GI upset. Give with [...] Total Volume: 1,000, Start date: 07/26/16 12:26:00 FLOOR MOLDER, Duration: 30 day, Stop date: 08/25/16 12:25:00 FLOOR MOLDER Sodium 2016-0 No 500 mL, Memoria Chloride 2-05 500 ml/hr, l 0.154 13:30: Infuse [place] MEQ/ML 00 Over: 1 Injectable hr, Route: Solution IV, 500, Drug form: INJ, ONCE, Priority: STAT, Dosing Weight 92.273 kg, Start date: 07/26/16 7:30:00 FLOOR MOLDER, Duration: 1 doses or times, Stop date: 07/26/16 7:30:00 FLOOR MOLDER Insulin 2016- No 60 Memoria regular 2-04 units) l 08:39: WASTE: F/P [place] - Black; E - Municipal Trash Bin [...] Roll in l Human 03:28: palms of [place] 00 hands gently; Do not shake vigorously [...] Weight 92.273, kg, Start date: 07/24/16 9:00:00 FLOOR MOLDER, Duration: 30 day, Stop date: 08/22/16 9:00:00 FLOOR MOLDER 24 HR No Notes: Memoria Divalproex 2-03 (Same as: l Sodium 500 15:00: Depakote Her braden MG Extended 00 ER) Release Tablet [Depakote] gabapentin No Notes: Memor ia 300 MG Oral 2-03 (Same as: l Capsule 15:00: Neurontin) Herm naeem Aspirin 81 No Notes: Memor ia MG Chewable 2-03 Take with l Tablet 15:00: food. [place] 00 Lasix No Notes: Memoria 2-03 (Same as: l 15:00: Lasix) Vin MEDICATION WASTE Product Size: 40 mg Product Wasted: ___ mg Zoloft No Notes: Memoria 2-03 (Same as: l 15:00: Zoloft) [place] Protonix No Notes: Memoria 2-03 Tablet l 15:00: should not be chewed or crushed. (Same as: Protonix) metoprolol No 100 mg, 2 Me moria extended 2-03 tab, l release 15:00: Route: PO, Herm naeem Drug form: ERTAB, Daily, Start date: 07/24/16 9:00:00 FLOOR MOLDER, Duration: 30 day, Stop date: 08/22/16 9:00:00 FLOOR MOLDER Insulin No Notes: Memoria Glargine 2-03 Same [...] Notes: Memoria 2-03 (Same l 14:50: as:MORPhin [place] 00 e Sulfate) Insulin, No Notes: Memoria [...] Memoria 2-03 Same as l 11:28: Dilaudid [place] 00 Insulin, No Notes: Memoria Aspart, 2-03 [...] Blood Glucose Results, Start date: 07/24/16 2:40:00 FLOOR MOLDER, Duration: 30 day, Stop date: 08/23/16 2:39:00 FLOOR MOLDER Dextrose No 25 gm, 50 Mendoza janice 50% Syringe 2-03 mL, Route: l 08:40: IVP, Drug [place] 00 Form: INJ, Dosing Weight 92.273, kg, PRN, PRN Blood Glucose Results, Start date: 07/24/16 2:40:00 FLOOR MOLDER, Duration: 30 day, Stop date: 08/23/16 2:39:00 FLOOR MOLDER Docusate No Notes: Memoria 2-03 (Same as: l 07:20: Colace) [place] (Do Not Crush) Ondansetron No Notes: Mendoza [...] l / 04:09: Duoneb) Vin Ipratropium 00 [place] 0.167 MG/ML Inhalant Solution [DuoNeb] Furosemide 2015-06 [...] INHALATION l 0.09 16:34: , PRN, PRN [place] MG/ACTUAT 00 as needed Metered for Dose [...] tab, PO, l tablet 16:34: Daily, # [place] 00 30 tab, 0 Refill(s) Lasix 2015-06 No Notes: Memoria 2-26 (Same as: l 15:00: Lasix) Vin 00 May cause GI upset. Give with food or milk. Magnesium 2015-06 No Notes: Memori a Oxide 2-24 (Same as: l 13:36: Mag-Ox [place] 00 400) Magnesium oxide [id number] g elemental magnesium Dose=____m g magnesium oxide (___mg elemental magnesium) Magnesium 2015-06 No Notes: Memori a Oxide 2-24 (Same as: l 09:47: Mag-Ox [place] 00 400) Magnesium oxide 484le=878j g elemental magnesium Dose=____m g magnesium oxide [...] Memoria 2-24 (Same as: l 00:00: Norvasc) [place] 00 Insulin 2015-06 No Notes: Memoria Glargine [...] tab, PO, l tablet 15:35: Daily, 0 [place] 00 Refill(s) pravastatin 2015-06 No 40 mg = 1 M emoria 40 mg oral 2-23 tab, PO, l tablet 15:35: Daily, 0 Vin 00 Refill(s) Sertraline 2015-06 Yes 200 mg = 2 M emoria 100 MG Oral 2-23 tab, PO, l Tablet 15:27: Daily, 0 [place] [Zoloft] 00 Refill(s) pantoprazol 2015-06 Yes 40 mg = 1 M emoria e 40 MG 2-23 tab, PO, l Enteric 15:27: Daily, 0 Ajke n Coated 00 Refill(s) Tablet [Protonix] gabapentin 2015-06 Yes 1 CAP PO Mem oria 300 MG Oral 2-23 BID AND 1 l Capsule 15:27: CAP AT [place] 00 BEDTIME, 0 Refill(s) Insulin, 2015-06 No [...] Weight 86.364, kg, Start date: 06/11/16 9:00:00 FLOOR MOLDER, Duration: 30 day, Stop date: 07/10/16 9:00:00 FLOOR MOLDER Insulin 2015-06 No Notes: Memoria Glargine 2-22 Same as: l 100 UNT/ML 15:00: Lantus) Do H ermann Injectable 00 not hold Solution insulin [Lantus] without contacting prescriber WASTE: F/P - Black; E - Municipal Trash Bin Zoloft 2015-06 No Notes: Memoria 2-22 (Same as: l 15:00: Zoloft) Vin 00 Insulin, 2015-06 No Notes: Memoria Aspart, 2-22 Roll in l Human 12:55: palms of [place] 00 hands gently; Do not shake vigorously . (Same as: NovoLOG) "single patient use only" WASTE: F/P - Black; E - Municipal Trash Bin Stable for 28 days at room temperatur e. Expires in days from ____Date heparin 2015-06 No Notes: Memoria sodium, 2-22 porcine l porcine 06:00: heparin [place] 2500 UNT/ML 00 Injectable Solution Albuterol 2015-06 No Notes: Memori a 0.833 MG/ML 08-12 (Same as: l / 03:00: Duoneb) [place] Ipratropium 00 [place] 0.167 MG/ML Inhalant Solution [DuoNeb] gabapentin 2015-06 No 300 mg, Mendoza jancie 300 MG Oral 08-12 Route: PO, l Capsule 03:00: Drug form: Herm naeem 00 CAP, Q12H, Dosing Weight 86.364, kg, (CrCl 30 - 59 ml/min), Start date: 06/10/16 21:00:00 FLOOR MOLDER, Duration: 30 day, Stop date: 07/10/16 9:00:00 FLOOR MOLDER divalproex 2015-06 No Notes: Memor ia sodium 2-22 (Same as: l 03:00: Depakote [place] 00 ER) Once daily dosing; indicated for migraines. Divalproe x sodium extended-r elease tab. Do not chew or crush. "Do Not Crush" Losartan 2015-06 No Notes: Memoria 2-22 (Same as: l 03:00: Cozaar) [place] 00 Insulin, 2015-06 No Notes: Memoria Aspart, [...] Syringe 2-22 25 mL, l 00:50: Route: [place] 00 IVP, Drug Form: INJ, Dosing Weight 86.364, kg, PRN, PRN Blood Glucose Results, Start date: 06/10/16 18:50:00 FLOOR MOLDER, Duration: 30 day, Stop date: 07/10/16 18:49:00 FLOOR MOLDER Glucagon 2015-06 No 1 mg, Memoria 2-22 Route: IM, l 00:50: Drug form: PDR/INJ, PRN, Dosing Weight 86.364, kg, PRN Blood Glucose Results, Start date: 06/10/16 18:50:00 FLOOR MOLDER, Duration: 30 day, Stop date: 07/10/16 18:49:00 FLOOR MOLDER Hydralazine 2015-06 No Notes: Mendoza janice 2-22 [...] Weight 86.364, kg, Start date: 06/10/16 18:06:00 FLOOR MOLDER, Stop date: 06/10/16 18:06:00 FLOOR MOLDER hydrOXYzine 2015-06 No Notes: Mendoza janice pamoate 2-21 (Same as: l 23:00: Vistaril) Furosemide 2015-06 No 60 mg, Memor ia 2-21 Route: l 22:32: IVP, Drug form: INJ, ONCE, Dosing Weight 86.364, kg, Start date: 06/10/16 16:32:00 FLOOR MOLDER, Stop date: 06/10/16 16:32:00 FLOOR MOLDER Lasix 2015-06 No Notes: Memoria 08-11 (Same as: l 17:22: Lasix) MEDICATION WASTE Product Size: 40 mg Product Wasted: _0__ mg Albuterol 2015-06 No Notes: Memori a 0.833 MG/ML 08-11 (Same as: l / 17:22: Duoneb) Ipratropium 00 [place] 0.167 MG/ML Inhalant Solution [DuoNeb] Promethazin Yes 25 mg = 1 M emoria e -06 supp, ID, l Hydrochlori 14:45: Q6H, Jake n de [...] Memori a pamoate - Refill(s) l 11:18: [place] Dicyclomine Yes 0 Memori a -06 Refill(s) l 11:18: [place] 00 Ondansetron Yes 0 Memori a 1-06 Refill(s) l 11:17: [place] Benztropine 2015-0 Yes 0 Memori a 1-06 [...] Rate: 125 l 0.9% IV 04:10: ml/hr, [place] 1,000 mL 00 Infuse over: 8 hr, [...] Marx Rate: 500 l 0.9% 23:45: ml/hr, [place] (Bolus) IV 00 Infuse 500 mL over: [...] insulin No Blake 10 unit, Mem oria isophane-AQUACULTURIST 6-11 Deangelo 0.1 mL, l H 02:00: [...] 6-10 Omidvar Route: l 21:33: IVP, ONCE, [place] 00 Start date: 11/29/11 16:33:00, Stop date: [...] 2011-0 No Blake 14 unit, Mem oria isophane-AQUACULTURIST 6-10 Deangelo 0.14 mL, l H 14:00: Brisa Route: Vin 00 SUB-Q, Drug form: INJ, Daily, Start date: 11/29/11 9:00:00, Duration: 30 day, Stop date: 12/28/11 9:00:00 Insulin 2011-0 No Blake 10 unit, Mem oria regular 6-10 Deangelo 0.1 mL, l 14:00: Brisa Route: [place] 00 SUB-Q, Drug form: SOLN, Daily, Start [...] l IV 1,000 mL 06:29: Brisa ml/hr, [place] Infuse over: 5 hr, Route: IV, Dosing [...] mL, Route: l 04:01: Brown IVP, Drug [place] 00 form: INJ, ONCE, Priority: STAT, Start date: 11/28/11 23:01:00, Stop date: 11/28/11 23:01:00 Zofran 2011-0 No Nikki 4 mg, 2 Mendoza janice 6-10 Sarah mL, Route: l 02:31: Brown IVP, Drug [place] 00 form: INJ, ONCE, Priority: STAT, Start [...] 1,000 mL 11-27 Rate: l 20:36: 1,000 [place] 00 ml/hr, Infuse over: 1 hr, Route: IV, Dosing Weight 57.273 kg, Total Volume: 1,000, Start date: 11/28/11 15:36:00, Duration: 30 day, Stop date: 12/28/11 15:35:00 Ativan No Arif Domenico 2 mg, 1 Mem oria 6-09 mL, Route: l 20:35: IVP, Drug [place] 00 form: INJ, ONCE, Priority: STAT, Start date: 11/28/11 15:35:00, Stop date: 11/28/11 15:35:00 Novolin R Yes Hughes-Jason 8 unit, M emoria 100 3-30 [place] SUB-Q, l units/mL 17:47: Eunice Q12H, 2 He rmann injectable 42 Pu vial, solution Substituti on Allowed, SOLN Novolin N Yes Hughes-Jason 10 unit, Memoria 100 3-30 [place] SUB-Q, l units/mL 17:46: Eunice Bedtime, H ermann subcutaneou 27 Pu 10 ml, s injection Substituti on Allowed, SUSP Novolin N Yes Hughes-Jason 14 unit, Memoria 100 3-30 [place] SUB-Q, l units/mL 17:44: Eunice QAM, 1 Her braden subcutaneou 37 Pu vial, s injection Substituti on Allowed, SUSP magnesium No Hughes-Jason 400 mg, 1 Memoria oxide 3-30 [place] tab, l 14:55: Dawson Route: PO, Her braden 00 Pu Drug form: TAB, ONCE, Priority: STAT, Start date: 09/18/11 9:55:00, Stop date: 09/18/11 9:55:00 Insulin No Hughes-Jason 8 unit, Mem oria regular 3-30 [place] 0.08 mL, l 14:22: Dawson Route: [place] 00 Pu SUB-Q, Drug form: SOLN, ONCE, Priority: STAT, Start date: 09/18/11 9:22:00, Stop date: 09/18/11 9:22:00 Lactated 2012-0 No Uhghes-Jason 1,000 mL, Memoria Ringers 3-30 [place] Rate: l (Bolus) IV 14:16: Dawson 1,000 He rmann 1,000 mL 00 Pu ml/hr, Infuse over: 1 hr, Route: IV, Total Volume: 1,000, Bolus Dose, Priority: STAT, Start date: 09/18/11 9:16:00, Duration: 1 doses or times, Stop date: 09/18/11 10:15:00 Sodium 2011-0 No Hughes-Jason 1,000 mL, Me moria Chloride 3-30 [place] Rate: l 0.9% 14:06: Dawson 1,000 [place] (Bolus) IV 00 Pu ml/hr, 1000 mL Infuse over: 1 hr, Route: IV, kg, Total Volume: 1,000, Bolus Dose, Priority: STAT, Start date: 09/18/11 9:06:00, Duration: 1 doses or times, Stop date: 09/18/11 10:05:00 sulfamethox 2011-0 Yes Substituti Memoria azole 3-30 on Allowed l 14:04: [place] 58 Sodium 2011-0 No Hughes-Jason 1,000 mL, Me moria Chloride 3-30 [place] Rate: l 0.9% 13:56: Dawson 1,000 Vin (Bolus) IV 00 Pu ml/hr, 1000 mL Infuse over: 1 hr, Route: IV, kg, Total Volume: 1,000, Bolus Dose, Priority: STAT, Start date: 09/18/11 8:56:00, Duration: 1 doses or times, Stop date: 09/18/11 9:55:00 clindamycin 2011-0 No Eber L 300 mg, 2 Memoria 3-21 Anabelle cap, l 21:00: Route: PO, [place] 00 Drug form: CAP, Q8H, Start date: 09/09/11 16:00:00, Duration: 30 day, Stop date: 10/09/11 8:00:00 Colace 100 2011-0 Yes Luna 100 mg, 1 Memoria mg oral 3-21 Amelia cap, PO, l capsule 18:47: Sanderson BID, 60 Her braden 19 cap, Substituti on Allowed, CAP clindamycin 2011- Yes Luna 300 mg, 2 Memoria 150 mg oral 3-21 Amelia cap, PO, l capsule 18:46: Zeeshan Q8H, 30 Her braden 55 cap, Substituti on Allowed, CAP [place] Yes Luna 1 tab, PO, Memoria 10/325 oral -21 Amelia Q4H, PRN, l tablet 18:46: Zeeshan 30 tab, Herm naeem 36 Pain, Substituti on Allowed, Maintenanc e, TAB [place] No Hollie Donavan 1 tab, Mendoza janice [...] 3-19 Omidvar tab, l 15:30: Route: PO, [place] 00 Drug form: TAB, Daily, Start date: 09/07/11 10:30:00, Duration: 30 day, Stop date: 10/07/11 9:00:00 flumazenil 2011-0 No Gayle 0.2 mg, 2 Memoria 3-19 Josefina mL, Route: l 14:19: [place] IVP, Drug Jake n 00 form: INJ, PRN, PRN Benzodiaze pine Reversal, Initial dose, Start date: 09/07/11 9:19:00, Duration: 1 day, Stop date: 09/08/11 9:18:00 naloxone 2011-0 No Gayle 0.04 mg, Me moria 3-19 Josefina 0.1 mL, l 14:19: [place] Route: Vin 00 IVP, Drug form: INJ, Q2MIN, PRN Narcotic Reversal, Start date: 09/07/11 9:19:00, Duration: 8 doses or times, Stop date: Limited # of times ondansetron No Gayle 4 mg, 2 Memoria - Josefina mL, Route: l 14:19: [place] IVP, Drug Jake n 00 form: INJ, ONCE, PRN Nausea & Vomiting, Start date: 09/07/11 9:19:00 hydromorpho No Gayle 0.5 mg, Memoria ne 09-06 Josefina 0.25 mL, l 14:19: [place] Route: IVP, Drug form: INJ, Q5Min, PRN [...] 3-17 Wong tab, l 04:00: Route: PO, [place] Drug form: ECTAB, Daily, PRN Constipati on, Priority: NOW, Start date: 09/04/11 23:00:00, Duration: 30 day, Stop date: 10/04/11 22:59:00 Zofran 2011-0 No Hector 4 mg, 2 Memori a 3-16 Hissam mL, Route: l 23:11: Peg IV, Drug Jake n 00 form: INJ, Q4H, PRN as needed for nausea/vom iting, Priority: NOW, Start date: 09/04/11 18:11:00, Duration: 30 day, Stop date: 10/04/11 18:10:00 [place] 2011-0 No Mahammad 1 tab, Memori a [...] 3-16 Kavon 0.1 mL, l 14:50: Route: [place] 00 IVP, Drug form: INJ, Q2MIN, PRN Narcotic Reversal, Start date: 09/04/11 9:50:00, Duration: 30 day, Stop date: 10/04/11 9:49:00 [place] 2011-0 No [place] 1 tab, Memoria 10/325 [...] Beck 0.5 mL, l 13:37: Hayden Route: [place] IVP, Drug form: INJ, Q30Min, PRN Other [...] 3-15 Omidvar tab, l 13:39: Route: PO, [place] Drug form: ERTAB, ONCE, Start date: 09/03/11 8:39:00, Stop date: 09/03/11 8:39:00 [place] 5/325 2011-0 No Rosalino 1 tab, M emoria oral tablet 3-15 Kavon Route: PO, l 05:00: Drug Form: [place] 00 TAB, Q4H, Start date: 09/03/11 0:00:00, Duration: 30 day, Stop date: 10/02/11 20:00:00 Geodon 2011-0 No Eber L 120 mg, 3 Memoria 3-15 Anabelle cap, l 02:00: Route: PO, [place] 00 Drug form: CAP, Bedtime, Start date: [...] 3-14 Anabelle cap, l 17:00: Route: PO, [place] 00 Drug form: ERCAP, Daily, Give qAM after today's dose., Start date: 09/02/11 12:00:00, Duration: 30 day, Stop date: 10/02/11 9:00:00 [place] 5/325 2011-0 No Rosalino 1 tab, M emoria oral tablet 3-14 Kavon Route: PO, l 16:25: Drug Form: [place] 00 TAB, Q4H, PRN Pain, Start date: [...] Route: l 14:00: IVPB, Drug form: INJ, [id number], Start date: 09/02/11 9:00:00, Duration: 30 day, Stop date: 10/01/11 21:00:00 clindamycin 2011-0 No Eber L 600 mg, 4 Memoria (SCIP) 3-14 Anabelle mL, Route: l 10:00: IVPB, Vin 00 [id number], Start date: 09/02/11 5:00:00, Duration: 3 doses or times, Stop date: 09/02/11 21:00:00 clindamycin 2011-0 No Yury 600 mg, 4 Memoria (SCIP) 3-14 Silverio mL, Route: l 04:00: Connally IVPB, [place] 00 [id number], Start date: 09/01/11 23:00:00, Duration: 3 doses or times, Stop date: 09/02/11 15:00:00 insulin No [place] 15 unit, Mendoza janice isophane-AQUACULTURIST 3-14 Omidvar 0.15 mL, l H 02:00: Route: [place] 00 SUB-Q, Drug form: INJ, Q12H, Start date: 09/01/11 21:00:00, Stop date: 10/01/11 9:00:00 labetalol No Mariaelena-Corea 5 mg, Me moria 3-14 Barbra Route: l 01:07: Feliciano IVP, [place] 00 Q5Min, PRN Elevated BP, Start date: 09/01/11 20:07:00, Duration: 5 doses or times, Stop date: Limited # of times hydrALAZINE No Mariaelena-Corea 5 mg, Memoria 3-14 Barbra Route: l 01:07: Feliciano IVP, [place] 00 Q5Min, PRN Elevated BP, Start date: 09/01/11 20:07:00, Duration: 4 doses or times, Stop date: Limited # of times hydromorpho No Mariaelena-Corea 0.5 mg, Memoria ne 3-14 Barbra Route: l 01:07: Feliciano IVP, [place] 00 Q5Min, PRN Pain Score 4-6, Start [...] Route: l 01:07: Feliciano IVP, ONCE, Vin PRN Nausea & Vomiting, Start date: 09/01/11 20:07:00 vancomycin 2011-0 No Mele 1 gm, Mem oria 3-14 Gauvain Route: l 01:00: IVPB, Drug form: INJ, [id number], Start date: 09/01/11 20:00:00, Duration: 30 day, [...] Route: l 00:00: IVPB, Drug form: INJ, [id number], Start date: 09/01/11 19:00:00, Duration: 30 day, [...] Movva mL, Route: l 23:23: IVP, Drug [place] Form: INJ, PRN, PRN Blood Glucose Results, Start date: 09/01/11 18:23:00, Duration: 30 day, Stop date: 10/01/11 18:22:00 morphine 2011-0 No Daja Shannan 2 mg, 1 M emoria Sulfate 3-13 Beni mL, Route: l 21:14: IVP, Drug [place] form: INJ, Q4H, PRN Severe Pain, Start date: 09/01/11 16:14:00, Stop date: 10/01/11 16:13:00 Lactated 2011-0 No Cesar 1,000 mL, Me moria Ringers IV 3-13 Manuel [place] Rate: 100 l 1,000 mL 19:03: ml/hr, [...] L 1,000 mL, M emoria Chloride 3-13 [place] Rate: l 0.9% 10:41: 1,000 [place] (Bolus) IV 00 ml/hr, 1000 mL Infuse over: 1 hr, Route: IV, Dosing Weight 68.182 kg, Total Volume: 1,000, Bolus Dose, Priority: STAT, Start date: 09/01/11 5:41:00, Duration: 1 doses or times, Stop date: 09/01/11 6:40:00 ondansetron 2011-0 No Bee L 4 mg, Memoria 3-13 [place] Route: l 09:06: IVP, Drug Vin 00 form: INJ, ONCE, Priority: STAT, Start date: 09/01/11 4:06:00, Stop date: 09/01/11 4:06:00 morphine 2011-0 No Bee L 4 mg, Mem oria Sulfate 3-13 [place] Route: l 09:06: IVP, ONCE, [place] 00 Priority: STAT, Start date: 09/01/11 4:06:00, Stop date: 09/01/11 4:06:00 Sodium 2011-0 No Bee L 1,000 mL, M emoria Chloride - [place] Rate: l 0.9% 08:42: 1,000 [place] (Bolus) IV 00 ml/hr, 1000 mL Infuse over: 1 hr, Route: IV, Dosing Weight 68.182 kg, Total Volume: 1,000, Bolus Dose, Priority: STAT, Start date: 09/01/11 3:42:00, Duration: 1 doses or times, Stop date: 09/01/11 4:41:00 Insulin 2011- No Bee L 8 unit, Me moria regular 08-31 [place] 0.08 mL, l 08:30: Route: [place] 00 IVP, Drug form: SOLN, ONCE, Priority: STAT, Start date: 09/01/11 3:30:00, Stop date: 09/01/11 3:30:00 Sodium 2011-0 No Bee L 1,000 mL, M emoria Chloride 08-31 [place] Rate: l 0.9% 07:29: 1,000 [place] (Bolus) IV 00 ml/hr, 1,000 mL Infuse [...] solution Allowed, before breakfast lunch and dinner, [facility] and dinner potassium No Velásquez [...] 3-04 Akmal Route: IV, l 12:29: ONCE, [place] 00 Start date: 08/23/11 6:29:00, Stop date: 08/23/11 6:29:00 potassium No Velásquez Noam 60 mEq, 3 Memoria chloride 20 3-04 Akmal tab, l mEq oral 12:27: Route: PO, Her braden tablet, 00 Drug form: extended ERTAB, release ONCE, Start date: 08/23/11 6:27:00, Stop date: 08/23/11 6:27:00 magnesium No Velásquez Noam 2 gm, 50 Memoria sulfate 3-04 Akmal mL, Route: l 12:26: IVPB, Drug [place] 00 form: INJ, ONCE, Total dose = [...] Rodriguez 10 mL, l 16:25: Ahmed Route: [place] 00 IVPB, ONCE, Start date: 08/22/11 10:25:00, [...] Akmal mL, Route: l 13:26: IVPB, Drug [place] 00 form: INJ, ONCE, Total dose = [...] 3-02 Akmal tab, l 15:00: Route: PO, [place] 00 Drug form: TAB, Daily, Start date: [...] 2011-0 No Yury 10 unit, Mem oria isophane-AQUACULTURIST 3- Gato Route: l H 16:00: Rivero SUB-Q, Nidia nn 00 ONCE, Start date: 08/20/11 10:00:00, Stop date: 08/20/11 10:00:00 trazodone 2012-0 Yes 200 mg, 2 Mem oria 100 mg oral 3-01 tab, PO, l tablet 15:37: Bedtime, [place] 27 90 tab, Substituti on Allowed, TAB [...] 2011-0 No Yury 10 unit, Mem oria isophane-AQUACULTURIST 3- Gato Route: l H 15:00: Rivero [...] Allowed insulin No 10 unit, Memori a isophane-AQUACULTURIST 3- SUB-Q, l H 09:26: BID, Vin 18 Substituti on Allowed NS 1,000 mL No Velásquez Noam 1,000 mL, Memoria 3-01 Akmal Rate: 150 l 09:06: ml/hr, [place] 00 Infuse over: 6.7 hr, Route: IV, [...] 2011-0 No Yury 18 unit, Mem oria isophane-AQUACULTURIST 3- Gato 0.18 mL, l H 08:58: [...] ondansetron No Hughes-Jason 4 mg, emoria 08-19 [place] Route: l 07:42: Dawson IVP, Drug Herm naeem 00 Pu form: INJ, ONCE, Priority: STAT, Start date: 08/20/11 1:42:00, Stop date: 08/20/11 1:42:00 GI cocktail No Hughes-Jason 30 ml, Memoria 08-19 [place] Route: PO, l 05:12: Eunice Drug Form: Her braden 00 Pu SUSP, ONCE, STAT, Start date: 08/19/11 23:12:00, Stop date: 08/19/11 23:12:00 ondansetron 0 No [facility] [place] Route: PO, l 05:10: Dawson Drug form: Her braden 00 Pu TABDIS, ONCE, Priority: STAT, Start date: 08/19/11 23:10:00, Stop date: 08/19/11 23:10:00 Lactated 2011-0 No Hughes-Jason 1,000 mL, Memoria Ringers 3-01 [place] Rate: l (Bolus) IV 05:10: Dawson 1,000 He rmann 1000 mL 00 Pu ml/hr, Infuse over: 1 hr, Route: IV, Total Volume: 1,000, Bolus Dose, Priority: STAT, Start date: 08/19/11 23:10:00, Duration: 1 doses or times, Stop date: 08/20/11 0:09:00 Insulin 2011- No Hughes-Jason 7 unit, Mem oria regular 08-19 [place] 0.07 mL, l 04:15: Dawson Route: [place] 00 Pu SUB-Q, Drug form: SOLN, ONCE, Priority: STAT, Start date: 08/19/11 22:15:00, Stop date: 08/19/11 22:15:00 Geodon 60 2011-0 No Yury 60 mg, 1 M emoria mg oral 2-29 Gato cap, PO, l capsule 23:24: Rivero BID, 180 Vin 43 cap, Substituti on Allowed, CAP trazodone No 300 mg, 1 Mem oria 300 mg oral 2-29 tab, PO, l tablet 23:23: Bedtime, [place] 58 15 tab, Substituti on Allowed, TAB [...] Wong Route: l 21:57: Pooja IVP, ONCE, [place] nn 00 Priority: STAT, Start date: 08/19/11 [...] 2020-02-20 Completed Universit y of Vaccine 00:00:00 [facility] Influenza Virus 2020-02-20 Completed Universit y of Vaccine 00:00:00 [facility] TDAP (ADACEL) VACCINE 2019-07-25 Completed Uni versity of 00:00:00 [facility] Meningococcal B, OMV 2019-07-25 Completed Univ ersity of 00:00:00 [facility] Meningococcal 2019-07-25 Completed University of Polysaccharide 00:00:00 [facility] (groups A, C, Y and Branc h W-135) conjugate vaccine (MCV4P) TDAP (ADACEL) VACCINE 2019-07-25 Completed Uni versity of 00:00:00 [facility] Meningococcal B, OMV 2019-07-25 Completed Univ ersity of 00:00:00 [facility] Meningococcal 2019-07-25 Completed University of Polysaccharide 00:00:00 [facility] (groups A, C, Y and [...] of Vaccine Quad IM 3+ 00:00:00 [facility] Influenza Virus 2017-06-22 Completed Universit y of Vaccine Quad IM 3+ 00:00:00 [facility] Influenza Virus 2016-04-02 Completed Universit y of Vaccine Quad IM 3+ 00:00:00 [facility] Influenza Virus 2016-04-02 Completed Universit y of Vaccine Quad IM 3+ 00:00:00 [facility] Influenza Virus 2015-10-28 Completed Universit y of Vaccine Quad IM 3+ 00:00:00 [facility] Influenza Virus 2015-10-28 Completed Universit y of Vaccine Quad IM 3+ 00:00:00 [facility] Vital Signs Vital Name Observation Time Observation [...] 2020-06-27 16:33:00 171 mm[Hg] Univer sity of [facility] Diastolic blood 2020-06-27 16:33:00 98 mm[Hg] Unive rsity of [facility] Heart rate 2020-06-27 16:33:00 71 /min Universi [facility] Respiratory rate 2020-06-27 16:29:00 19 /min Univ ersity of [facility] Body height 2020-06-27 16:29:00 [facility] 2020-06-27 16:29:00 [facility]293 [facility] BMI 2020-06-27 16:29:00 32.20 kg/m2 [facility] Oxygen saturation in 2020-06-27 16:29:00 99 /min University Arterial blood by [facility] Pulse oximetry Branch Height/Length 2021-07-08 11:50:13 154.9 cm Measured Weight Dosing 2021-07-08 11:50:13 85.00 kg Height/Length 2021-07-08 11:47:31 154.9 cm Measured Weight Dosing 2021-07-08 11:47:31 85.00 kg Height/Length 2021-07-08 11:47:20 154.9 cm Measured Weight Dosing 2021-07-08 11:47:20 85.00 kg Systolic blood 2021-07-08 19:43:00 189 mm[Hg] [facility] pressure Diastolic blood 2021-07-08 19:43:00 104 mm[Hg] [facility] pressure Heart rate 2021-07-08 18:56:00 74 /min [facility] Body temperature 2021-07-08 18:56:00 36.39 Cathleen [facility] Body height 2021-07-08 18:56:00 157.5 cm [facility] Body weight 2021-07-08 18:56:00 72.938 kg [facility] BMI 2021-07-08 18:56:00 29.41 kg/m2 [facility] Oxygen saturation in 2021-07-08 18:56:00 100 /min [facility] Arterial blood by Pulse oximetry Respiratory rate 2021-06-18 16:36:00 11 /min [facility] Systolic (mm Hg) 2021-01-29 20:03:00 Mendoza rial Vin Diastolic (mm Hg) 2021-01-29 20:03:00 Mem orial Vin Systolic (mm Hg) 2021-01-29 19:40:00 Mendoza rial Vin Diastolic (mm Hg) 2021-01-29 19:40:00 Mem orial [place] Systolic (mm Hg) 2021-01-29 18:05:00 Mendoza rial [place] Diastolic (mm Hg) 2021-01-29 18:05:00 Mem orial Vin Respitory Rate 2021-01-29 16:55:00 Memori al Vin Temperature Oral (F) 2021-01-29 16:45:00 97.3 F [facility] Vin Respitory Rate 2021-01-29 16:45:00 Memori al Vin Respitory Rate 2021-01-29 16:30:00 Memori al [place] Temperature Oral (F) 2021-01-29 13:10:00 97.6 F [facility] [place] Systolic (mm Hg) 2021-01-27 05:00:00 Mendoza rial [place] Diastolic (mm Hg) 2021-01-27 05:00:00 Mem orial Vin Systolic (mm Hg) 2021-01-27 04:00:00 Mendoza rial Vin Diastolic (mm Hg) 2021-01-27 04:00:00 Mem orial Vin Systolic (mm Hg) 2021-01-27 03:00:00 Mendoza rial [place] Diastolic (mm Hg) 2021-01-27 03:00:00 Mem orial Vin Respitory Rate 2021-01-26 19:00:00 Memori al [place] Respitory Rate 2021-01-26 18:00:00 Memori al Vin Respitory Rate 2021-01-26 17:00:00 Memori al [place] Temperature Oral (F) 2021-01-22 13:00:00 97.6 F [facility] Vin Height 2021-01-21 18:25:00 149.86 cm [facility] [place] Weight 2021-01-21 18:25:00 [facility] Vin BMI Calculated 2021-01-21 18:25:00 Memori al [place] Height 2021-01-21 17:09:00 157.48 cm [facility] [place] Height 2021-01-21 13:09:00 157.48 cm [facility] Vin Weight 2021-01-21 13:09:00 [facility] Vin BMI Calculated 2021-01-21 13:09:00 Memori al [place] Heart Rate 2021-01-21 12:50:00 [facility] Vin Systolic (mm Hg) 2020-12-24 15:43:00 Mendoza rial Vin Diastolic (mm Hg) 2020-12-24 15:43:00 Mem orial Vin Heart Rate 2020-12-24 15:43:00 [facility] [place] Height 2020-12-24 15:43:00 154.94 cm [facility] Vin Weight 2020-12-24 15:43:00 [facility] Vin BMI Calculated 2020-12-24 15:43:00 Memori al [place] Systolic (mm Hg) 2016-07-30 14:00:00 Mendoza rial [place] Diastolic (mm Hg) 2016-07-30 14:00:00 Mem orial [place] Respitory Rate 2016-07-30 14:00:00 Memori al [place] Heart Rate 2016-07-30 14:00:00 [facility] Vin Temperature Oral (F) 2016-07-30 14:00:00 97.4 F [facility] [place] Systolic (mm Hg) 2016-07-30 10:45:00 Mendoza rial [place] Diastolic (mm Hg) 2016-07-30 10:45:00 Mem orial Vin Heart Rate 2016-07-30 10:45:00 [facility] Vin Temperature Oral (F) 2016-07-30 10:45:00 97.2 F [facility] [place] Respitory Rate 2016-07-30 10:45:00 Memori al [place] Heart Rate 2016-07-30 06:35:00 [facility] Vin Temperature Oral (F) 2016-07-30 06:35:00 97.0 F [facility] Vin Respitory Rate 2016-07-30 06:35:00 Memori al [place] Systolic (mm Hg) 2016-07-30 06:35:00 Mendoza rial Vin Diastolic (mm Hg) 2016-07-30 06:35:00 Mem orial [place] Weight 2016-07-24 02:13:00 [facility] [place] BMI Calculated 2016-07-24 02:13:00 Memori al [place] Height 2016-07-24 02:13:00 160.02 cm [facility] [place] Respitory Rate 2016-06-15 15:00:00 Memori al Vin Systolic (mm Hg) 2016-06-15 15:00:00 Mendoza rial [place] Diastolic (mm Hg) 2016-06-15 15:00:00 Mem orial Vin Respitory Rate 2016-06-15 14:00:00 Memori al [place] Systolic (mm Hg) 2016-06-15 14:00:00 Mendoza rial Vin Diastolic (mm Hg) 2016-06-15 14:00:00 Mem orial [place] Respitory Rate 2016-06-15 13:29:00 Memori al [place] Systolic (mm Hg) 2016-06-15 13:29:00 Mendoza rial Vin Diastolic (mm Hg) 2016-06-15 13:29:00 Mem orial Vin Temperature Oral (F) 2016-06-14 10:56:00 97.1 F [facility] Vin Temperature Oral (F) 2016-06-14 06:55:00 97.1 F [facility] [place] Temperature Oral (F) 2016-06-12 10:00:00 96.8 F [facility] [place] Weight 2016-06-11 04:25:00 [facility] [place] Height 2016-06-11 04:25:00 160.02 cm [facility] [place] BMI Calculated 2016-06-11 04:25:00 Memori al Vin Heart Rate 2016-06-11 02:04:00 [facility] [place] Heart Rate 2016-06-11 00:00:00 [facility] [place] Heart Rate 2016-06-10 20:30:00 [facility] Vin Weight 2016-06-10 16:04:00 [facility] Vin BMI Calculated 2016-06-10 16:04:00 Memori al Vin Height 2016-06-10 16:04:00 160.02 cm [facility] [place] Temperature Oral (F) 2014-06-26 15:12:00 98.0 F [facility] [place] Systolic (mm Hg) 2014-06-26 15:12:00 Mendoza rial Vin Heart Rate 2014-06-26 15:12:00 [facility] Vin Diastolic (mm Hg) 2014-06-26 15:12:00 Mem orial [place] Respitory Rate 2014-06-26 15:12:00 Memori al Vin Systolic (mm Hg) 2014-06-26 13:53:00 Mendoza rial Vin Diastolic (mm Hg) 2014-06-26 13:53:00 Mem orial Vin Respitory Rate 2014-06-26 13:53:00 Memori al [place] Temperature Oral (F) 2014-06-26 13:53:00 98.0 F [facility] Vin Temperature Oral (F) 2014-06-26 12:37:00 98.2 F [facility] [place] Respitory Rate 2014-06-26 12:37:00 Memori al [place] Systolic (mm Hg) 2014-06-26 12:37:00 Mendoza rial Vin Diastolic (mm Hg) 2014-06-26 12:37:00 Mem orial Vin Heart Rate 2014-06-26 09:21:00 [facility] [place] Heart Rate 2014-06-26 06:08:00 [facility] [place] Height 2014-06-26 05:35:00 154.94 cm [facility] [place] Weight 2014-06-26 05:35:00 [facility] [place] BMI Calculated 2014-06-26 05:35:00 Memori al [place] Respitory Rate 2013-04-15 06:10:00 Memori al [place] Diastolic (mm Hg) 2013-04-15 06:10:00 Mem orial Vin Heart Rate 2013-04-15 06:10:00 [facility] Vin Systolic (mm Hg) 2013-04-15 06:10:00 Mendoza rial Vin Temperature Oral (F) 2013-04-15 06:10:00 98.7 F [facility] [place] Respitory Rate 2013-04-15 05:37:00 Memori al Vin Diastolic (mm Hg) 2013-04-15 05:37:00 Mem orial Vin Systolic (mm Hg) 2013-04-15 05:37:00 Mendoza rial [place] Temperature Oral (F) 2013-04-15 05:37:00 98.2 F [facility] Vin Heart Rate 2013-04-15 05:37:00 [facility] Vin Height 2013-04-15 02:06:00 160.02 cm [facility] Vin Weight 2013-04-15 02:06:00 [facility] [place] Temperature Oral (F) 2013-04-15 02:06:00 98.6 F [facility] Vin Respitory Rate 2013-04-15 02:06:00 Memori al Vin Heart Rate 2013-04-15 02:06:00 [facility] Vin Diastolic (mm Hg) 2013-04-15 02:06:00 Mem orial Vin Systolic (mm Hg) 2013-04-15 02:06:00 Mendoza rial [place] Weight 2012-03-14 21:33:00 [facility] Systolic (mm Hg) 2011-12-01 00:33:00 Mendoza rial Vin Respitory Rate 2011-12-01 00:33:00 Memori al [place] Heart Rate 2011-12-01 00:33:00 [facility] Vin Diastolic (mm Hg) 2011-12-01 00:33:00 Mem orial [place] Temperature Oral (F) 2011-12-01 00:33:00 99.6 F [facility] Vin Diastolic (mm Hg) 2011-11-30 21:00:00 Mem orial Vin Heart Rate 2011-11-30 21:00:00 [facility] Vin Respitory Rate 2011-11-30 21:00:00 Mem[facility] al [place] Systolic (mm Hg) 2011-11-30 21:00:00 Mendoza rial Vin Temperature Oral (F) 2011-11-30 21:00:00 99.8 F [facility] Vin Respitory Rate 2011-11-30 16:30:00 [facility] al [place] Systolic (mm Hg) 2011-11-30 16:30:00 Mendoza rial Vin Diastolic (mm Hg) 2011-11-30 16:30:00 Mem orial Vin Heart Rate 2011-11-30 16:30:00 [facility] Vin Temperature Oral (F) 2011-11-30 16:30:00 99.8 F [facility] Weight 2011-11-29 11:40:00 [facility] [place] Height 2011-11-29 11:40:00 157.48 cm [facility] [place] Weight 2011-11-28 17:16:00 [facility] Vin Weight 2011-09-18 13:30:00 [facility] Height 2011-09-18 13:30:00 154.94 cm [facility] Heart Rate 2011-09-09 13:31:00 [facility] [place] Systolic (mm Hg) 2011-09-09 13:02:00 Mendoaz rial [place] Diastolic (mm Hg) 2011-09-09 13:02:00 Mem orial [place] Respitory Rate 2011-09-09 13:02:00 Memori al [place] Temperature Oral (F) 2011-09-09 13:02:00 97.5 F [facility] Vin Diastolic (mm Hg) 2011-09-09 08:00:00 Mem orial Vin Heart Rate 2011-09-09 08:00:00 [facility] Vin Temperature Oral (F) 2011-09-09 08:00:00 98.6 F [facility] Respitory Rate 2011-09-09 08:00:00 Memori al Vin Systolic (mm Hg) 2011-09-09 08:00:00 Mendoza rial Vin Respitory Rate 2011-09-09 04:55:00 Memori al [place] Diastolic (mm Hg) 2011-09-09 04:55:00 Mem orial [place] Systolic (mm Hg) 2011-09-09 04:55:00 Mendoza rial [place] Heart Rate 2011-09-09 04:55:00 [facility] Vin Temperature Oral (F) 2011-09-09 00:55:00 98.7 F [facility] [place] Weight 2011-09-01 19:59:00 [facility] Height 2011-09-01 19:59:00 154.94 cm [facility] [place] Height 2011-09-01 07:01:00 154.94 cm [facility] [place] Weight 2011-09-01 07:01:00 [facility] [place] Respitory Rate 2011-08-23 18:00:00 Memori al [place] Heart Rate 2011-08-23 18:00:00 [facility] [place] Systolic (mm Hg) 2011-08-23 18:00:00 Mendoza rial [place] Diastolic (mm Hg) 2011-08-23 18:00:00 Mem orial [place] Temperature Oral (F) 2011-08-23 18:00:00 97.7 F [facility] Vin Heart Rate 2011-08-23 14:24:00 [facility] Vin Temperature Oral (F) 2011-08-23 14:24:00 98.2 F [facility] [place] Diastolic (mm Hg) 2011-08-23 14:24:00 Mem orial Vin Systolic (mm Hg) 2011-08-23 14:24:00 Mendoza rial [place] Respitory Rate 2011-08-23 14:24:00 Memori al Vin Systolic (mm Hg) 2011-08-23 11:15:00 Mendoza rial [place] Diastolic (mm Hg) 2011-08-23 11:15:00 Mem orial Vin Temperature Oral (F) 2011-08-23 11:00:00 98.3 F [facility] [place] Heart Rate 2011-08-23 11:00:00 [facility] Vin Respitory Rate 2011-08-22 22:00:00 Memori al Vin Height 2011-08-20 09:12:00 154.94 cm [facility] [place] Weight 2011-08-20 09:12:00 [facility] Height 2011-08-19 20:28:00 154.94 cm [facility] Weight 2011-08-19 20:28:00 [facility] [place] Procedures Procedure Date / Time Performing Clinician Source Performed POC GLUCOSE 2021-06-18 17:00:00 Aurelio Schumacher spital HEPATITIS B SURFACE 2021-06-18 14:07:00 Kenneth [facility] ANTIGEN VANCOMYCIN LEVEL, RANDOM 2021-06-18 13:44:00 [facility] HC COMPLETE BLD COUNT 2021-06-18 13:44:00 Endy [facility] W/AUTO DIFF BASIC METABOLIC PANEL 2021-06-18 11:27:00 [facility] ESTIMATED GFR 2021-06-18 11:27:00 Aurelio Schumacher Ho spital POC GLUCOSE 2021-06-18 08:07:00 Aurelio Schumacher [facility] Ho spital HEMODIALYSIS 2021-06-18 06:16:53 Bill Cooper spital POC GLUCOSE 2021-06-18 01:26:00 Aurelio Schumacher [facility] Ho spital POC GLUCOSE 2021-06-17 21:58:00 Aurelio Schumacher [facility] Ho spital HEMODIALYSIS 2021-06-17 18:25:45 Bill Cooper spital POC GLUCOSE 2021-06-17 17:36:00 Aurelio Schumacher [facility] Ho spital POC GLUCOSE 2021-06-17 13:51:00 Aurelio Schumacher Ho spital BASIC METABOLIC PANEL 2021-06-17 11:16:00 [facility] HC COMPLETE BLD COUNT 2021-06-17 11:16:00 [facility] W/AUTO DIFF ESTIMATED GFR 2021-06-17 11:16:00 [facility] POC GLUCOSE 2021-06-17 02:50:00 [facility] CONSULT TO OSTOMY CARE 2021-06-17 00:31:48 [facility] NURSE HC COMPLETE BLD COUNT 2021-06-16 23:31:00 [facility] W/AUTO DIFF BASIC METABOLIC PANEL 2021-06-16 23:31:00 [facility] ESTIMATED GFR 2021-06-16 23:31:00 [facility] POC GLUCOSE 2021-06-16 23:19:00 [facility] OR [place] < 1 HOUR 2021-06-16 22:49:00 [facility] 2021-06-16 22:36:00 Kaci Diazlie [facility] FUNGUS CULTURE 2021-06-16 22:36:00 [facility] 2021-06-16 22:36:00 [facility] 2021-06-16 22:36:00 [facility] ID AN ELECTIVE 2021-06-16 21:30:00 Jocelyne Zepeda [facility] SUPRAGLOTTIC AIRWAY AORTOGRAPHY, POSSIBLE 2021-06-16 21:17:00 Mando Diaz [facility] ANGIOPLASTY [facility] POC , URINE 2021-06-16 20:46:00 [facility]eto [facility] POTASSIUM LEVEL 2021-06-16 17:28:00 Isabell Dickerson [facility] Larry Romero POC GLUCOSE 2021-06-16 11:39:00 [facility] BASIC METABOLIC PANEL 2021-06-16 10:08:00 [facility] COMPLETE BLD COUNT 2021-06-16 10:08:00 [facility] W/AUTO DIFF PROTHROMBIN TIME WITH INR 2021-06-16 10:08:00 [facility] PARTIAL THROMBOPLASTIN 2021-06-16 10:08:00 [facility] TIME (PTT) TYPE AND SCREEN 2021-06-16 10:08:00 [facility] ESTIMATED GFR 2021-06-16 10:08:00 [facility] POC GLUCOSE 2021-06-16 01:59:00 [facility] POC GLUCOSE 2021-06-15 22:58:00 [facility] COVID-19 QUALITATIVE 2021-06-15 19:29:00 Wander Elizabethmaria luisa [facility] RT-PCR POC GLUCOSE 2021-06-15 17:42:00 [facility] HEMODIALYSIS 2021-06-15 16:17:54 Delfino Akbar [facility] POC GLUCOSE 2021-06-15 15:41:00 [facility] POC GLUCOSE 2021-06-15 13:44:00 [facility] POC GLUCOSE 2021-06-15 13:00:00 [facility] ECG 12-LEAD 2021-06-15 12:48:21 Leni Barkertal HC COMPLETE BLD COUNT 2021-06-15 11:42:00 [facility] W/AUTO DIFF BASIC METABOLIC PANEL 2021-06-15 11:42:00 [facility] ESTIMATED GFR 2021-06-15 11:42:00 [facility] POC GLUCOSE 2021-06-15 01:31:00 [facility] US DUPLEX ARTERIAL LOWER 2021-06-14 21:55:33 [facility] EXTREMITY RIGHT POC GLUCOSE 2021-06-14 21:51:00 [facility] POC GLUCOSE 2021-06-14 17:36:00 [facility] POC GLUCOSE 2021-06-14 13:30:00 [facility] POC GLUCOSE 2021-06-14 13:29:00 [facility] HC COMPLETE BLD COUNT 2021-06-14 10:13:00 [facility] W/AUTO DIFF BASIC METABOLIC PANEL 2021-06-14 10:13:00 [facility] ESTIMATED GFR 2021-06-14 10:13:00 [facility] POC GLUCOSE 2021-06-14 02:45:00 [facility] POC GLUCOSE 2021-06-13 21:47:00 [facility] POC GLUCOSE 2021-06-13 20:46:00 [facility] CBC WITH PLATELET AND 2021-06-13 16:10:00 [facility] DIFFERENTIAL COMPREHENSIVE METABOLIC 2021-06-13 16:10:00 [facility] PANEL ESTIMATED GFR 2021-06-13 16:10:00 [facility] HEMODIALYSIS 2021-06-13 15:26:35 [facility] POC GLUCOSE 2021-06-13 14:30:00 [facility] VANCOMYCIN LEVEL, RANDOM 2021-06-13 10:59:00 Juwan Krueger [facility] POC GLUCOSE 2021-06-13 10:40:00 [facility] POC GLUCOSE 2021-06-13 02:28:00 [facility] POC GLUCOSE 2021-06-13 00:16:00 [facility] POC GLUCOSE 2021-06-12 23:31:00 [facility] POC GLUCOSE 2021-06-12 23:14:00 [facility] POC GLUCOSE 2021-06-12 18:19:00 [facility] POC GLUCOSE 2021-06-12 14:37:00 [facility] POC GLUCOSE 2021-06-12 14:01:00 [facility] POC GLUCOSE 2021-06-12 03:03:00 [facility] 2021-06-12 00:53:00 [facility] 2021-06-11 18:08:00 Holden Nagel [facility] [place] POC GLUCOSE 2021-06-11 13:39:00 Nagel, Holden [facility] spital [place] HEMODIALYSIS 2021-06-11 12:38:38 Naomie Dickelmo [facility] POC GLUCOSE 2021-06-11 02:01:00 Nagel, Holden [facility]aeism spital [place] POC GLUCOSE 2021-06-10 22:15:00 Nagel, Holden [facility]aeism spital [place] POC GLUCOSE 2021-06-10 17:39:00 Nagel, Holden Mandaeism spital [place] POC GLUCOSE 2021-06-10 16:05:00 Nagel, Holdentrip Whyte spital [place] GRAM STAIN 2021-06-10 15:08:00 Pati, Juwan Whyte spital TISSUE CULTURE 2021-06-10 15:08:00 Pati, Juwancaron Whyte spital ANAEROBIC CULTURE 2021-06-10 15:04:00 Pati, [facility] FUNGUS CULTURE 2021-06-10 15:04:00 Pati, Juwan Whyte spital AEROBIC CULTURE 2021-06-10 15:04:00 Pati, Juwan Whyte spital AFB CULTURE 2021-06-10 15:04:00 Pati, Juwan Whyte spital GRAM STAIN 2021-06-10 15:04:00 Pati, Juwan Whyte spital AFB STAIN 2021-06-10 15:04:00 Pati, Juwancaron Whyte spital ID AN ELECTIVE 2021-06-10 14:26:00 Sofi Roach spital SUPRAGLOTTIC AIRWAY Marquita INCISION AND DRAINAGE, 2021-06-10 14:26:00 Pati, [facility] LOWER EXTREMITY HC COMPLETE BLD COUNT 2021-06-10 10:20:00 , [facility] W/AUTO DIFF BASIC METABOLIC PANEL 2021-06-10 10:20:00 [facility] PROTHROMBIN TIME WITH INR 2021-06-10 10:20:00 [facility] PARTIAL THROMBOPLASTIN 2021-06-10 10:20:00 [facility] TIME (PTT) TYPE AND SCREEN 2021-06-10 10:20:00 Robe, Holden Whyte Ho spital [place] ESTIMATED GFR 2021-06-10 10:20:00 Juwan Krueger Ho spital POC GLUCOSE 2021-06-10 03:11:00 Nagel, Holden Whyte Ho spital [place] POC GLUCOSE 2021-06-10 01:30:00 Nagel, Holden Ferrara spital [place] POC GLUCOSE 2021-06-09 22:22:00 Nagel, Holden Whyte Ho spital [place] POC GLUCOSE 2021-06-09 13:55:00 Nagel, Holden Whyte Ho spital [place] HEMODIALYSIS 2021-06-09 13:20:01 [facility] VANCOMYCIN LEVEL, RANDOM 2021-06-09 11:46:00 [facility] POC GLUCOSE 2021-06-09 02:06:00 Robe, Holden Ferrara spital [place] POC GLUCOSE 2021-06-08 22:23:00 Nagel, Holden Whyte Ho spital [place] POC GLUCOSE 2021-06-08 17:53:00 Nagel, Holden Ferrara spital [place] HC COMPLETE BLD COUNT 2021-06-08 16:06:00 [facility] W/AUTO DIFF POC GLUCOSE 2021-06-08 13:56:00 Holden Nagel spital [place] URINE CULTURE 2021-06-08 03:56:00 Holden Nagel spital [place] URINALYSIS SCREEN AND 2021-06-08 03:32:00 [facility] MICROSCOPY, WITH REFLEX TO CULTURE POC GLUCOSE 2021-06-08 01:15:00 Robe, Holden Ferrara spital [place] POC GLUCOSE 2021-06-07 22:07:00 Nagel, Holden Ferrara spital [place] POC GLUCOSE 2021-06-07 18:01:00 Holden Nagel Ho spital [place] BASIC METABOLIC PANEL 2021-06-07 14:15:00 [facility] ESTIMATED GFR 2021-06-07 14:15:00 Nagel Holden Whyte Ho spital [place] POC GLUCOSE 2021-06-07 13:56:00 Nagel, Holden Mandaeism Ho spital [place] POC GLUCOSE 2021-06-07 02:54:00 Nagel, Holden Whyte Ho spital [place] CT LOWER EXTREMITY W 2021-06-07 01:22:59 [facility] CONTRAST RIGHT POC GLUCOSE 2021-06-06 23:50:00 NagelHolden rodriguez Ho spital [place] POC GLUCOSE 2021-06-06 17:31:00 Nagel, Holden Whyte Ho spital [place] HEMODIALYSIS 2021-06-06 15:05:52 [facility] POC GLUCOSE 2021-06-06 14:03:00 Holden Nagel Ho spital [place] HC COMPLETE BLD COUNT 2021-06-06 10:31:00 [facility] W/AUTO DIFF BASIC METABOLIC PANEL 2021-06-06 10:31:00 [facility] ESTIMATED GFR 2021-06-06 10:31:00 Holden Nagel Ho spital [place] POC GLUCOSE 2021-06-06 10:14:00 Holden Nagel Ho spital [place] POC GLUCOSE 2021-06-06 06:26:00 Holden Nagel Ho spital [place] POC GLUCOSE 2021-06-06 02:41:00 Holden Nagel Ho spital [place] POC GLUCOSE 2021-06-05 19:51:00 NagelHolden rodriguez Ho spital [place] BASIC METABOLIC PANEL 2021-06-05 18:06:00 [facility] HC COMPLETE BLD COUNT 2021-06-05 18:06:00 [facility] W/AUTO DIFF ESTIMATED GFR 2021-06-05 18:06:00 Holden Nagel Ho spital [place] POC GLUCOSE 2021-06-05 17:48:00 Holden Nagel Ho spital [place] ANAEROBIC CULTURE 2021-06-05 17:10:00 Pati, [facility] ANAEROBIC CULTURE 2021-06-05 16:59:00 Pati, [facility] FUNGUS CULTURE 2021-06-05 16:59:00 Pati, [facility] spital AEROBIC CULTURE 2021-06-05 16:59:00 Pati, [facility] spital AFB CULTURE 2021-06-05 16:59:00 Pati, [facility] spital FUNGUS SMEAR 2021-06-05 16:59:00 Pati, [facility] spital AFB STAIN 2021-06-05 16:59:00 Pati, [facility] spital ID AN ELECTIVE 2021-06-05 16:52:08 Herrera [facility] SUPRAGLOTTIC AIRWAY TISSUE CULTURE 2021-06-05 16:50:00 [facility] 2021-06-05 16:50:00 [facility] L[facility] 2021-06-05 16:16:00 Pati [facility] EXTREMITY POC GLUCOSE 2021-06-05 13:32:00 [facility] TROP[facility] T 2021-06-05 10:58:00 [facility] ospital ABO AND RH CONFIRMATION 2021-06-05 10:54:00 [facility] BASIC METABOLIC PANEL 2021-06-05 10:53:00 [facility] HC COMPLETE BLD COUNT 2021-06-05 10:53:00 [facility] W/AUTO DIFF ESTIMATED GFR 2021-06-05 10:53:00 Sivan Stewart [facility] PROTHROMBIN TIME WITH INR 2021-06-05 10:52:00 [facility] PARTIAL THROMBOPLASTIN 2021-06-05 10:52:00 [facility] TIME (PTT) HCG QUALITATIVE, SERUM 2021-06-05 10:52:00 Myron Fernandes [facility] SCREEN POC GLUCOSE 2021-06-05 09:40:00 Dhaliwal, Carlos [facility] spital Vipin BLOOD CULTURE, AEROBIC & 2021-06-05 08:27:00 Carlos Dhaliwal [facility] ANAEROBIC Vipin POC GLUCOSE 2021-06-05 07:42:00 Carlos Dhaliwal Ho spital Vipin POC GLUCOSE 2021-06-05 06:57:00 Carlos Dhaliwal Ho spital Vipin POC GLUCOSE 2021-06-05 06:10:00 NagelHolden Ho spital Ramírez BLOOD CULTURE, AEROBIC & 2021-06-05 04:31:00 Carlos Dhaliwal [facility] ANAEROBIC Vipin POC GLUCOSE 2021-06-05 04:04:00 Carlos Dhaliwal Ho spital Vipin POC GLUCOSE 2021-06-05 03:51:00 Carlos Dhaliwal Ho spital Vipin TYPE AND SCREEN 2021-06-05 03:40:00 Carlos Dhaliwal Ho spital Vipin POC GLUCOSE 2021-06-05 03:05:00 Carlos Dhaliwla Ho spital Vipin POC GLUCOSE 2021-06-05 02:23:00 Carlos Dhaliwal Ho spital Vipin COVID-19 QUALITATIVE 2021-06-05 02:08:00 [facility] HC COMPLETE BLD COUNT 2021-06-05 01:24:00 SamantaSivan [facility] W/AUTO DIFF PROTHROMBIN TIME WITH INR 2021-06-05 01:24:00 [facility] PARTIAL THROMBOPLASTIN 2021-06-05 01:24:[address] [facility] TIME (PTT) COMPREHENSIVE METABOLIC 2021-06-05 01:24:00 hollySivan [facility] PANEL CREATINE KINASE, TOTAL 2021-06-05 01:24:00 [facility] NATRIURETIC PEPTIDE 2021-06-05 01:24:00 SamantaSivan [facility] TROPONIN T 2021-06-05 01:24:00 Char Viramontes [facility] ospital ESTIMATED GFR 2021-06-05 01:24:00 Sivan Stewart [facility] ECG ED PRELIMINARY 2021-06-05 00:31:28 Sivan Stewart [facility] INTERPRETATION ECG 12-LEAD 2021-06-05 00:19:17 Carlos Dhaliwal Ho marilyn [facility] POC GLUCOSE 2021-05-25 18:04:00 Awe, Marilu Arvin [facility] POC GLUCOSE 2021-05-25 14:00:00 Awe, Marilu Arvin [facility] CBC HEMOGRAM 2021-05-25 10:12:00 Awe, Marilu Arvin [facility] BASIC METABOLIC PANEL 2021-05-25 10:12:00 Awe, [facility] ESTIMATED GFR 2021-05-25 10:12:00 Awe, Marilu Arvin [facility] POC GLUCOSE 2021-05-25 02:49:00 Awe, Marilu Arvin [facility] POC GLUCOSE 2021-05-24 23:33:00 Awe, Marilu Arvin [facility] POC GLUCOSE 2021-05-24 17:56:00 Awe, Marilu Arvin [facility] POC GLUCOSE 2021-05-24 13:59:00 Awe, Marilu Arvin [facility] CBC HEMOGRAM 2021-05-24 10:12:00 Awe, Marilu Arvin [facility] BASIC METABOLIC PANEL 2021-05-24 10:12:00 [facility] ESTIM[facility] GFR 2021-05-24 10:12:00 Awe, Marilu Arvin [facility] POC GLUCOSE 2021-05-24 09:59:00 Awe, Marilu Arvin [facility] POC GLUCOSE 2021-05-24 02:26:00 Awe, [facility]u [facility] POC GLUCOSE 2021-05-24 00:03:00 Awe, [facility] TRANSFUSE RED BLOOD CELLS 2021-05-23 22:30:00 [facility] TRANSFUSE RED BLOOD CELLS 2021-05-23 21:30:00 [facility] POC GLUCOSE 2021-05-23 19:03:00 Awe, [facility] TYPE AND SCREEN 2021-05-23 14:38:00 [facility] HC COMPLETE BLD COUNT 2021-05-23 14:38:00 [facility] W/AUTO DIFF PREPARE RBC 2021-05-23 14:38:00 [facility] ospital PREPARE PLATELET PHERESIS 2021-05-23 14:38:00 [facility] POC GLUCOSE 2021-05-23 14:35:00 Awe, [facility] HEMODIALYSIS 2021-05-23 13:42:30 [facility] CBC HEMOGRAM 2021-05-23 12:31:00 Awe, [facility] BASIC METABOLIC PANEL 2021-05-23 12:31:00 Awe, [facility] ESTIMATED GFR 2021-05-23 12:31:00 Awe, [facility] POC GLUCOSE 2021-05-23 11:22:00 Awe, [facility] POC GLUCOSE 2021-05-23 03:30:00 [facility] 2021-05-22 23:20:00 Awe, [facility] POC GLUCOSE 2021-05-22 17:20:00 Awe, [facility] POC GLUCOSE 2021-05-22 13:27:00 Awe, [facility] BASIC METABOLIC PANEL 2021-05-22 12:31:00 Nikki Haynes [facility] Rahel MAGNESIUM LEVEL 2021-05-22 12:31:00 Nikki Haynes osgio Mcginnis CBC HEMOGRAM 2021-05-22 12:31:00 Nikki Haynes ospital Rahel ESTIMATED GFR 2021-05-22 12:31:00 Nikki Haynes ospital Rahel POC GLUCOSE 2021-05-22 10:54:00 Awe, [facility] POC GLUCOSE 2021-05-22 07:28:00 Awe, [facility] POC GLUCOSE 2021-05-22 01:11:00 Awe, [facility] HEPATITIS B SURFACE 2021-05-21 21:08:00 [facility] ANTIBODY HEMODIALYSIS 2021-05-21 20:57:40 [facility] POC GLUCOSE 2021-05-21 17:57:00 Awe, [facility] POC GLUCOSE 2021-05-21 13:55:00 Awe, [facility] POC GLUCOSE 2021-05-21 10:41:00 Kye Barber COVID-19 ANTI-SPIKE IGG 2021-05-21 07:43:00 Ishan [facility] ANTIBODY TITER Esa BASIC METABOLIC PANEL 2021-05-21 07:43:00 [facility] Ra[facility] MAGNESIUM LEVEL 2021-05-21 07:43:00 Nikki Haynes ospigabe Mcginnis CBC HEMOGRAM 2021-05-21 07:43:00 Nikki Haynes ospigabe Mcginnis COVID-19 SEROLOGY PATIENT 2021-05-21 07:43:00 Clyde Olmstead [facility] SURVEILLANCE Esa ESTIMATED GFR 2021-05-21 07:43:00 Andre Sofia [place] LACTIC ACID LEVEL 2021-05-21 07:43:00 Leodan Stevenson [facility] POC GLUCOSE 2021-05-21 06:35:00 Kye Barber HC COMPLETE BLD COUNT 2021-05-21 02:49:00 [facility] W/AUTO DIFF BASIC METABOLIC PANEL 2021-05-21 02:49:00 [facility] LACTIC ACID LEVEL 2021-05-21 02:49:00 [facility] OSMOLALITY, SERUM 2021-05-21 02:49:00 [facility] BETA HYDROXYBUTYRATE 2021-05-21 02:49:00 [facility] PROCALCITONIN 2021-05-21 02:49:00 [facility] ESTIMATED GFR 2021-05-21 02:49:00 [facility] POC GLUCOSE 2021-05-21 02:34:00 Kye Barber spital HC COMPLETE BLD COUNT 2021-05-21 00:28:00 Char Viramontes [facility] W/AUTO DIFF POC GLUCOSE 2021-05-20 23:57:00 Kye Barber spital BASIC METABOLIC PANEL 2021-05-20 23:20:00 Andre Sofia [facility] [place] LACTIC ACID LEVEL 2021-05-20 23:20:00 Kimberlyn [facility] [place] ESTIMATED GFR 2021-05-20 23:20:00 Andre Sofia spital [place] VENOUS BLOOD GAS 2021-05-20 23:19:00 Andre Sofia ospital [place] POC GLUCOSE 2021-05-20 23:16:00 Kye Barber Ho spital POC GLUCOSE 2021-05-20 22:16:00 Kye Barber Ho spital POC GLUCOSE 2021-05-20 21:37:00 Kye Barber Ho spital POC GLUCOSE 2021-05-20 20:29:00 Kye Barber Ho spital POC GLUCOSE 2021-05-20 20:26:00 Kye Barber spital POC GLUCOSE 2021-05-20 17:49:00 Kye Barber Ho spital POC GLUCOSE 2021-05-20 17:46:00 Kye Barber spital TRANSFUSE RED BLOOD CELLS 2021-05-20 17:21:00 [facility] [place] TRANSFUSE PLATELET 2021-05-20 15:52:00 Wander [facility] PHERESIS BASIC METABOLIC PANEL 2021-05-20 15:25:00 Angel [facility] [place] ESTIMATED GFR 2021-05-20 15:25:00 Andre Sofia spital [place] POC GLUCOSE 2021-05-20 14:48:00 Kye Barber spital HEMODIALYSIS 2021-05-20 11:31:20 [facility] POC GLUCOSE 2021-05-20 10:44:00 Kye Barber spital HEPATITIS B SURFACE 2021-05-20 08:49:00 [facility] ANTIGEN HEPATITIS B SURFACE AB, 2021-05-20 08:49:00 [facility] QUANTITATIVE HC COMPLETE BLD COUNT 2021-05-20 08:25:00 [facility] W/AUTO DIFF BASIC METABOLIC PANEL 2021-05-20 08:25:00 [facility] MAGNESIUM LEVEL 2021-05-20 08:25:00 [facility] ospital PHOSPHORUS LEVEL 2021-05-20 08:25:00 [facility] PROTHROMBIN TIME WITH INR 2021-05-20 08:25:00 Leodan Stevenson [facility] ESTIMATED GFR 2021-05-20 08:25:00 Juwan Krueger spital HEMOGLOBIN A1C 2021-05-20 08:25:00 Nikki Haynes H ospital Rahel POC GLUCOSE 2021-05-20 06:34:00 Kye Barber spital ARTERIAL BLOOD GAS 2021-05-20 04:36:00 [facility] 12-LEAD 2021-05-20 03:42:28 Graham [facility] spital PROTHROMBIN TIME WITH INR 2021-05-20 02:54:00 [facility] HC COMPLETE BLD COUNT 2021-05-20 02:54:00 [facility] BASIC METABOLIC PANEL 2021-05-20 02:54:00 [facility] LACTIC ACID LEVEL 2021-05-20 02:54:00 Graham [facility] VENOUS BLOOD GAS 2021-05-20 02:54:00 Graham [facility] Claudia ospital ESTIMATED GFR 2021-05-20 02:54:00 Graham [facility] Ho spital POC GLUCOSE 2021-05-20 02:54:00 Kye Barber spital XR CHEST 1 VW PORTABLE 2021-05-20 02:51:13 [facility] [place] [facility] HOUR 2021-05-20 01:30:15 Juwan Krueger spital TRANSFUSE RED BLOOD CELLS 2021-05-20 00:59:00 Juwan Krueger [facility] ID AN ELECTIVE 2021-05-20 00:53:01 Sukhjinder Medina spital SUPRAGLOTTIC AIRWAY Kendall INCISION AND DRAINAGE, 2021-05-20 00:45:00 Juwan Krueger [facility] HEMATOMA HC COMPLETE BLD COUNT 2021-05-19 22:13:00 [facility] W/AUTO DIFF BASIC METABOLIC PANEL 2021-05-19 22:13:00 [facility] PROTHROMBIN TIME WITH INR 2021-05-19 22:13:00 [facility] PARTIAL THROMBOPLASTIN 2021-05-19 22:13:00 [facility] TIME (PTT) MAGNESIUM LEVEL 2021-05-19 22:13:00 [facility] ospital ESTIMATED GFR 2021-05-19 22:13:00 Juwan Krueger spital POC GLUCOSE 2021-05-19 22:00:00 Errol Luther [facility] SURGICAL PATHOLOGY REQUEST 2021-05-19 21:47:00 Errol Luther [facility] POC GLUCOSE 2021-05-19 21:17:00 Juwan Krueger spital ACTIVATED CLOTTING TIME 2021-05-19 19:12:00 Kye Barber [facility] ID AN ELECTIVE 2021-05-19 18:11:04 Sukhjinder Medina spital SUPRAGLOTTIC AIRWAY [place] LOWER EXTREMITY 2021-05-19 17:59:00 Juwan Krueger spital ANGIOGRAM,POSSIBLE ANGIOPLASTY,POSSIBLE STENT XR CHEST 1 VW PORTABLE 2021-05-19 15:47:37 Juwan Kureger [facility] ESTIMATED GFR 2021-05-19 14:34:00 Juwan Krueger spital POC PANEL 2021-05-19 14:34:00 Juwan Krueger spital TYPE AND SCREEN 2021-05-19 14:05:00 Isabell Dickerson marilyn Romero PREPARE RBC 2021-05-19 14:05:00 [facility] PREPARE FRESH FROZEN 2021-05-19 14:05:00 [facility] PLASMA PREPARE PLATELET PHERESIS 2021-05-19 14:05:00 Char Viramontes [facility] BASIC METABOLIC PANEL 2021-05-19 14:00:00 [facility] PROTHROMBIN TIME WITH INR 2021-05-19 14:00:00 Jayla [facility] Larry Romero HC COMPLETE BLD COUNT 2021-05-19 14:00:00 [facility] W/AUTO DIFF Larry Romero ABO AND RH CONFIRMATION 2021-05-19 14:00:00 Pati [facility] ESTIMATED GFR 2021-05-19 14:00:00 Isabell Dickerson COVID-19 QUALITATIVE 2021-05-19 12:40:00 Juwan [facility] RT-PCR MEDICAL RELEASE/CLEARANCE 2021-05-13 06:01:00 Doctor Unassigned, [facility] FORMS [facility] US DUPLEX ARTERIAL LOWER 2021-05-12 15:21:31 Juwan Krueger [facility] EXTREMITY BILATERAL Emergency department visit 2013-04-15 05:00:00 [facility] [place] for the evaluation and management of a patient, which requires these 3 kamara components within the constraints imposed by the urgency of the patient's clinical condition and/or mental status: A comprehensive history; A comprehensi Injection or Infusion of 2013-04-15 05:00:00 [facility] [place] Other Therapeutic or Prophylactic Substance Intravenous infusion, 2013-04-15 05:00:00 Memori al Vin hydration; each additional hour (List separately in addition to code for primary procedure) Therapeutic, prophylactic, 2013-04-15 05:00:00 [facility] [place] or diagnostic injection (specify substance or drug); each additional sequential intravenous push of a new substance/drug (List separately in addition to code for primary procedure) Therapeutic, prophylactic, 2013-04-15 05:00:00 [facility] [place] or diagnostic injection (specify substance or drug); intravenous push, single or initial substance/drug [facility] (esophagogastroduodenoscop y) gastric outlet reduction section Shahid Joseph n Tubal [facility] of [facility] replacement for [facility]all Plan of Care Planned Activity Planned Date Details Comments Source Future Scheduled 2021-07-22 COVID-19 VACCINE [facility] Test 13:11:04 (1) [code = COVID-19 VACCINE (1)] Future Scheduled 2021-07-22 Hepatitis C [facility] Test 13:11:04 screening (procedure) [code = 396827381] Future Scheduled 2021-07-22 [facility] Test 13:11:04 malignant neoplasm of cervix (procedure) [code = 787791554] Future Scheduled 2021-07-22 [facility]FLUENZA [facility]ACCINE [facility] 13:11:04 [code = INFLUENZA VACCINE] Encounters Start End Encounter Admission Attending Care Care Encounter Source Date/Time Date/Time Type Type Clinicians Facility Department ID 2021-07-22 Outpatient nullFlavo [facility] [id number] Memoria 00:10:30 r Medical 05 l [facility] 2021-07-22 Preadmit nullFlavo [id number] Memoria 00:10:30 [facility] 68 l [place] 2021-07-22 Outpatient nullFlavo [facility] [id number] Memoria 00:10:30 r Medical 06 l [facility] 2021-07-08 2021-07-08 Office Ann, 1.2.840.1 [id number] Methodi 12:54:05 14:25:36 Visit Bessie 86708.1.[address] [place] 3.430.2.7 Hosp jo-ann .3.934281 l .8 2021-07-08 2021-07-08 Telephone Anthony, 1.2.840.1 [id number] Methodi 00:00:00 00:00:[address] 3.430.2.7 Hospit a .3.832774 l .8 2021-07-08 2021-07-08 Travel 1.2.840.1 1.2.040.385 [id number] Methodi 00:00:00 00:00:[address] 3.430.2.7 0.2.7.3.698 Ho spita .3.517655 084.8 l .8 2021-07-03 2021-07-03 Telephone Seth, 1.2.840.1 [id number] Methodi 00:00:00 00:00:[address] [place] 3.430.2.7 Hosp jo-ann .3.298923 l .8 2021-06-24 2021-06-24 Outpatient Deshazo_T DMG [facility] [id number] -[id number] [facility] 05:31:00 05:31:00 0104 Medica l Group 2021-06-23 2021-06-23 Telephone Anthony, 1.2.840.1 [id number] 2099 [id number] Methodi 00:00:00 00:00:[address] 3.430.2.7 Hospit a .3.366999 l .8 2021-06-04 2021-06-18 [facility] Sivan Stewart 1.2.840.1 [id number] Methodi 18:20:00 18:13:00 Encounter Carlos Dhaliwal 37954.1.[address] Nagel, Holden Ortizra 3.430.2.7 Hospita Shanda Mckenzie .3.592257 l Aurelio Schumacher .8 2021-06-16 2021-06-16 Anesthesia Yousif, 1.2.840.1 [id number] Methodi 23:59:59 23:59:59 Event Alesia Coelho 33402.1.[address] 3.430.2.7 Hospit a .3.469308 l .8 2021-06-16 2021-06-16 Surgery Diaz, 1.2.840.1 [id number] Methodi 13:30:00 17:45:[address] [facility] 3.430.2.7 Hosp jo-ann .3.220247 l .8 2021-06-16 2021-06-16 Anesthesia Jose Carlos, 1.2.840.1 [id number] Methodi 15:19:00 17:19:00 Event Sethlachelleayo 34119.1.1 309 s t V. 3.430.2.7 Hospit a .3.822166 l .8 2021-06-10 2021-06-10 Surgery Juwan Krueger 1.2.840.1 [id number] Methodi 08:00:00 10:30:[address] 3.430.2.7 Hospit a .3.740705 l .8 2021-06-10 2021-06-10 Anesthesia Doc, 1.2.840.1 [id number] Methodi 08:26:00 09:40:00 Event Sofi 43534.1.[address] Marquita 3.430.2.7 Hosp jo-ann .3.848549 l .8 2021-06-09 2021-06-09 Prep for Robert, 1.2.840.1 [id number] Methodi 00:00:00 00:00:00 Surgery Gayle 64494.1.[address] 3.430.2.7 Hospit a .3.496419 l .8 2021-06-09 2021-06-09 Prep for Robert, 1.2.840.1 [id number] [id number] Methodi 00:00:00 00:00:00 Surgery Gayle 84942.1.[address] 3.430.2.7 Hospit a .3.573316 l .8 2021-06-05 2021-06-05 Anesthesia Frankie Chowdhury 1.2.840.1 [id number] Methodi 10:16:00 11:41:00 Event Chandler Silverman 81464.1.[address] 3.430.2.7 Hospit a .3.241129 l .8 2021-06-05 2021-06-05 Surgery Juwan Krueger 1.2.840.1 [id number] Methodi 09:30:00 11:05:[address] 3.430.2.7 Hospit a .3.082883 l .8 2021-06-03 2021-06-03 Prep for Anthony, 1.2.840.1 [id number] [id number] Methodi 00:00:00 00:00:00 Surgery Forrest 03002.1.[address] 3.430.2.7 Hospit a .3.882176 l .8 2021-06-03 2021-06-03 Telephone Adelita, 1.2.840.1 [id number] [id number] Methodi 00:00:00 00:00:00 Crysandria 10566.1.1 218 s t 3.430.2.7 Hospit a .3.730702 l .8 2021-05-28 2021-05-28 Outpatient Adams_R DM DMG [id number] 021 [facility] 05:00:00 05:00:00 1208 Medica l Group 2021-05-27 2021-05-27 Patient Tam, 1.2.840.1 [id number] Methodi 00:00:00 00:00:00 Outreach Maria M 73964.1.[address] 3.430.2.7 Hospit a .3.662842 l .8 2021-05-27 2021-05-27 Travel 1.2.840.1 1.2.180.481 9733 [id number] Methodi 00:00:00 00:00:[address] 3.430.2.7 0.2.7.3.698 Ho rajeshta .3.425345 084.8 l .8 2021-05-27 2021-05-27 Orders Ramana, 1.2.840.1 [id number] Methodi 00:00:00 00:00:00 Only Anila 98583.1.[address] 3.430.2.7 Hospit a .3.677921 l .8 2021-05-26 2021-05-26 Outpatient Adams_R DMG DMG [id number] 021 [facility] 03:30:00 03:30:00 1206 Medica l Group 2021-05-26 2021-05-26 Telephone Anthony, 1.2.840.1 [id number] [id number] Methodi 00:00:00 00:00:[address] 3.430.2.7 Hospit a .3.976919 l .8 2021-05-19 2021-05-25 [facility] 1.2.840.1 [id number] 2099 [id number] Methodi 06:00:00 15:59:00 Encounter Kye Barber 59015.1.[address] August Marilu Arvin 3.430.2.7 Hospita .3.060890 l .8 2021-05-21 2021-05-21 Outpatient DMG DMG [id number] [facility] 03:30:00 03:30:00 1201 Medica l Group 2021-05-19 2021-05-19 Anesthesia Adam, 1.2.840.1 [id number] Methodi 18:45:00 20:31:00 Event Sukhjinder 07324.1.[address] [place] 3.430.2.7 Hospit a .3.427227 l .8 2021-05-19 2021-05-19 Surgery Juwan Krueger 1.2.840.1 [id number] Methodi 18:50:00 19:55:[address] 3.430.2.7 Hospit a .3.963856 l .8 2021-05-19 2021-05-19 Anesthesia Sukhjinder Medina 1.2.840.1 [id number] Methodi 12:00:00 15:14:00 Event Hanane Ledezma 66239.1.[address] 3.430.2.7 Hospit a .3.195252 l .8 2021-05-19 2021-05-19 Surgery Juwan Krueger 1.2.840.1 [id number] Methodi 12:05:00 14:45:[address] 3.430.2.7 Hospit a .3.961281 l .8 2021-05-19 2021-05-19 Travel 1.2.840.1 1.2.100.167 7347 [id number] Methodi 00:00:00 00:00:[address] 3.430.2.7 0.2.7.3.698 spita .3.121839 084.8 l .8 2021-05-14 2021-05-14 Telephone Suhahia, 1.2.840.1 [id number] Methodi 00:00:00 00:00:[address] 3.430.2.7 Hospit a .3.311814 l .8 2021-05-14 2021-05-14 Prep for Anthony, 1.2.840.1 [id number] Methodi 00:00:00 00:00:00 Surgery Forrest 39572.1.[address] 3.430.2.7 Hospit a .3.988087 l .8 2021-05-13 2021-05-13 Orders Doctor JOANNA 1.2.840.114 [id number] [facility] 00:00:00 00:00:00 Only Unassigned, MAGDALENO 350.1.13.10 ity of [facility] 4.2.7.2.686 Baljinder as [id number] [address] 2021-05-12 2021-05-12 Office PatiJuwan 1.2.840.1 [id number] Methodi 09:02:46 09:32:[address] 3.430.2.7 Hospit a .3.232297 l .8 2021-05-12 2021-05-12 Telephone Anthony, 1.2.840.1 [id number] 2099 [id number] Methodi 00:00:00 00:00:[address] 3.430.2.7 Hospit a .3.573093 l .8 2021-05-12 2021-05-12 Travel 1.2.840.1 1.2.182.355 7942 [id number] Methodi 00:00:00 00:00:[address] 3.430.2.7 0.2.7.3.698 spita .3.293443 084.8 l .8 2021-05-08 2021-05-08 Orders Anthony, 1.2.840.1 [id number] Methodi 00:00:00 00:00:00 Only Forrest 78609.1.[address] 3.430.2.7 Hospit a .3.633352 l .8 2021-05-08 2021-05-08 Telephone Ramana, 1.2.840.1 [id number] Methodi 00:00:00 00:00:[address] 3.430.2.7 Hospit a .3.758880 l .8 2021-05-05 2021-05-05 Office Juwan Krueger 1.2.840.1 [id number] Methodi 14:18:48 15:41:[address] 3.430.2.7 Hospit a .3.675196 l .8 2021-05-05 2021-05-05 Travel 1.2.840.1 1.2.390.522 9677 [id number] Methodi 00:00:00 00:00:[address] 3.430.2.7 0.2.7.3.698 Ho spita .3.749165 084.8 l .8 2021-05-01 2021-05-01 Telephone Joe 1.2.840.1 [id number] 2099 [id number] Methodi 00:00:00 00:00:[address] [facility] 3.430.2.7 Hosp jo-ann .3.716406 l .8 2021-03-21 2021-03-21 Outpatient DMG DMG [id number] 021 [facility] 08:01:00 08:01:00 1001 [facility] 2021-01-21 2021-01-29 Inpatient [facility] [id number] [facility] 15:50:00 20:14:[address] 2021-01-21 2021-01-29 Inpatient U [facility] [facility] 10:50:00 15:14:00 AKUA 2021-01-24 2021-01-24 Outpatient DMG DMG [id number] [facility] 08:00:00 08:00:00 0806 Medica l Group 2021-01-03 2021-01-03 Office DOMINIQUE Diane 1.2.840.114 [id number] 07:44:43 09:30:54 Visit Alexandr HOLMANCarlos 350.1.13.58 MEDICAL 9.2.7.2.686 [facility] [id number] 1 2021-01-03 2021-01-03 Office DOMINIQUE Diane 1.2.840.114 [id number] [place] 07:44:43 09:30:54 Visit Alexandr ALTMAN 350.1.13.58 H [facility] 9.2.7.2.686 [facility] [id number] 1 2020-12-24 2020-12-25 Outpatient nullFlavo [facility] [id number] [id number] Memoria 15:32:00 04:59:00 r Disease 11 l [facility] 2020-12-24 2020-12-24 Outpatient PHILIPPE, [facility] 75[address] [facility] 10:32:00 23:59:00 AMES 2020-10-27 2020-10-27 Letter Lamin, [facility] 1.2.840.114 [id number] 00:00:00 00:00:00 (Out) Oz Lehman 350.1.13.10 [place] 4.2.7.2.686 Professio [id number] [facility] 059 [facility] 2020-10-24 2020-10-24 Orders Doctor JOANNA 1.2.840.114 [id number] 00:00:00 00:00:00 Only Unassigned, MAGDALENO 350.1.13.10 [place] [facility] 4.2.7.2.686 [id number] 009 2020-09-24 2020-09-24 [facility] 1.2.840.114 [id number] 00:00:00 00:00:00 Jose Luis Lehman 350.1.13.10 [place] 4.2.7.2.686 Professio [id number] [facility] 220 [facility] 2020-09-09 2020-09-09 [facility] 1.2.840.114 [id number] 00:00:00 00:00:00 Outreach Earl PRIMARY 350.1.13.10 Manuel CARE 4.2.7.2.686 [facility] [id number] 388 2020-07-23 2020-07-23 Office Black [facility] 1.2.073.416 [id number] 13:31:20 14:37:36 Visit Deja PRIMARY 350.1.13.10 A CARE [id number] PAVILLION [id number] 2020-06-27 2020-06-27 [facility] [id number] Univers 10:05:43 11:00:00 Visit Sendil Mami LEHMAN [id number] ity [facility] [id number] Amisha CANNON [id number] [place] dical [facility]9 [facility] 2020-06-27 2020-06-27 [facility] [id number] Univers 09:30:00 11:00:00 SENDIL ity [facility] 2020-01-25 2020-01-31 Inpatient 1 ChivoJose husseinRei [facility] GPY [id number] 21:31:00 18:15:00 Rei Wald[facility] 2016-07-24 2016-07-30 [facility] [id number] Memoria 02:04:00 16:20:[address] 2016-06-10 2016-06-[address] [facility] [id number] Memoria 16:02:00 18:23:00 r [place] 09 [facility] 2014-06-26 2014-06-[address] [facility] [address] [facility] [id number] Memoria 05:25:00 15:14:00 Emergency r [place] 08 [facility] 2013-04-14 2013-04-15 Emergency nullFlavo [id number] Memoria 21:04:00 01:45:00 r [facility] 07 [facility] 2012-03-14 2012-03-14 Emergency nullFlavo [id number] Memoria 16:32:00 22:39:00 r [facility] 04 [facility] 2011-11-28 2011-11-30 OU nullFlavo [facility] [id number] Memoria 12:16:00 20:40:00 r [facility] 03 [facility] 2011-09-18 2011-09-18 Emergency nullFlavo [facility] [id number] Memoria 08:23:00 13:34:00 r [facility] 02 [facility] 2011-09-01 2011-09-09 Inpatient nullFlavo [facility] [id number] Memoria 01:40:00 15:00:00 r Medical 01 [facility] 2011-08-19 2011-08-23 Inpatient nullFlavo [facility] [id number] Memoria 14:25:00 15:28:00 r Medical l [facility] Results Test Description Test Time Test Comments Results Result Comments Source AFB culture 2021-07-22 18:13:19 Test Item Value Reference Range Interpretation Comme nts AFB culture isolate No growth after 6 weeks of Specimen InformationSpecimen (test code = 543-9) incubation. Source: DrainageSpecimen Site: Thigh: infected wound right thigh [facility] Center[facility] solcfcp1934-19-68 18:15:13 Test Item Value Reference Range Interpretation Comments Fungus culture No growth Specimen isolate (test after 4 weeks InformationSp ecimen code = 1441) of Source: TissueS pecimen incubation. Site: Thigh [facility] CenterAnaerobic [id number] 14:31:13 Test Item Value Reference Range Interpretation Comments Anaerobic No anaerobic Specimen culture isolate organisms InformationS pecimen (test code = isolated. Source: TissueS pecimen 552) Site: Thigh [facility] qtorx9774-11-10 16:51:58 Test Item Value Reference Range Interpretation Comments Gram stain No WBC's or Specimen isolate (test organisms seen. Information Specimen code = 1469) Source: TissueS pecimen Site: Thigh [facility] ikzqixd7556-45-38 16:51:58 Test Item Value Reference Range Interpretation Comments Aerobic culture No growth Specimen isolate (test after 3 days. InformationSp ecimen code = 498) Source: TissueS pecimen Site: Thigh [facility] Center[facility] jxkwl7568-81-64 16:51:58 Test Item Value Reference Range Interpretation Comments Fungus smear No fungi Specimen (test code = observed. InformationSpec imen Source: 1443) TissueSpecimen Site: [facility] njdlvwm0526-84-48 17:00:57 Test Item Value Reference Range Interpretation Comments POC glucose (test code 79 mg/dL 65-99 Opera tor Name: Eboni = 33904-5) AmiDevice ID: [id number] [facility] , degkg2352-29-93 20:46:00 Test Item Value Reference Range Interpretation Comments test urine, POC (test Negative code = 9137497) Internal QC (test code = 257) QC acceptable [facility] 12 [id number] 17:27:33 Test Item Value Reference Range Interpretation Comments Ventricular rate (test code = 253) Atrial rate (test code = 255) ID interval (test code = 266) QRSD interval [...] of 04-JUN-2021 18:19,-No significant change was found- [facility] CenterType and tlhyiv6385-11-43 11:06:00 Test Item Value Reference Range Interpretation Comments ABO grouping (test code = 883-9) B Rh type (test code = 14729-4) POS Antibody screen (gel) (test code = NEG 890-4) [facility] CenterTissue oipnyuo1313-05-85 20:18:46 Test Item Value Reference Range Interpretation Comments Tissue culture No growth Specimen isolate (test after 3 days. InformationSp ecimen code = 12776-8) Source: Tiss ueSpecimen Site: Thigh: in fected right thigh wou nd [facility] CenterAFB [id number] 20:24:42 Test Item Value Reference Range Interpretation Comments AFB stain No acid fast Specimen (test code = bacilli (AFB) InformationSpe cimen 676-7) seen. Source: Drainag eSpecimen Site: Thigh: in fected wound right th igh [facility] CenterUrine iweopwv1521-80-37 09:49:57 Test Item Value Reference Range Interpretation Comments Urine culture No growth Specimen isolate (test after 24 InformationSpe cimen code = 85183-3) hours Source: Urin eSpecimen Site: Clean cat ch [facility] CenterABO and Rh ztdzbfnqojof3627-93-02 12:52:00 Test Item Value Reference Range Interpretation Comments ABO grouping (test code = 883-9) B Rh type (test code = 61663-2) POS [facility] RBC, 1 Cveww3292-18-42 22:22:00 Test Item Value Reference Range Interpretation Comments Product name (test code Red Blood Cells -1, = 25) Leukored Unit number (test code = [id number]) Product code (test code I3081P14 = 3092) Dispense status (test Transfused code = 24) Blood expiration date (test code = 302) Blood type code (test code = 308) Blood type (test code = B POSITIVE 1314) Compatibility (test code Compatible = 6400) [facility] mliwljs2253-29-94 20:10:46 Test Item Value Reference Range Interpretation Comments Case number (test code = [id number]) Surgical pathology See link below for report (test code = PDF Lab Report [id number]) Result status (test code This is Final Report = [id number]) for [id number] [facility] platelet pheresis, 1 Azpfm2939-39-68 15:35:00 Test Item Value Reference Range Interpretation Comments Product name (test code Bogdan Fraire LR, Path = 25) Red cont3 Unit number (test code = [id number]) Product code (test code R2266Y91 = 3092) Dispense status (test Transfused code = 24) Blood expiration date (test code = 302) Blood type code (test code = 308) Blood type (test code = O POSITIVE 1314) Compatibility (test code Not required = 6400) [facility] CenterActivated clotting [id number] 12:13:24 Test Item Value Reference Range Interpretation Comments Activated clotting time See_Comment H Oper ator Name: (test code = 5298) Bryn Morales ID: [id number] [Automated mess age] The system [employer] generated this result transmitted ref erence range: 96 - 152 sec. The reference r leo was not used to interpret this result as normal/abnor mal. Lab Interpretation (test Abnormal code = 01571-0) [facility] dxknc5370-62-95 14:37:48 Test Item Value Reference Range Interpretation Comments POC sodium (test code = 138 mmol/L 380-144 7655-0) POC potassium (test 5.5 mmol/L 3.5-5.0 H code = 6298-4) POC glucose (test code 295 mg/dL 65-99 H = 2339-0) POC creatinine (test 5.3 mg/dl 0.5-0.9 H Operato r Name: Pat code = 49071-4) [place] ID: [id number] POC hemoglobin (test 18.4 g/dL 12.0-16.0 H code = 718-7) POC hematocrit (test 54 % 37-47 H code = 4544-3) Lab Interpretation Abnormal (test code = 93810-6) [place] 162781-08-11 08:17:00 Test Item Value Reference Range Interpretation Comments Glucose Lvl (test code = Glucose Lvl) 94 70-99 [place] [address]-08-11 08:17:00 Test Item Value Reference Range Interpretation Comments BUN (test code = BUN) 27 7-22 [place] [address]-08-11 08:17:00 Test Item Value Reference Range Interpretation Comments Creatinine Lvl (test code = Creatinine 4.95 0.50-1.40 Lvl) [place] 258671-08-11 08:17:00 Test Item Value Reference Range Interpretation Comments Sodium Lvl (test code = Sodium Lvl) 136 135-145 [place] 258671-08-11 08:17:00 Test Item Value Reference Range Interpretation Comments Potassium Lvl (test code = Potassium 3.9 3.5-5.1 Lvl) [place] 258671-08-11 08:17:00 Test Item Value Reference Range Interpretation Comments Chloride Lvl (test code = Chloride Lvl) 103 95-109 [place] 258671-08-11 08:17:00 Test Item Value Reference Range Interpretation Comments CO2 (test code = CO2) 30 24-32 [place] 258671-08-11 08:17:00 Test Item Value Reference Range Interpretation Comments AGAP (test code = AGAP) 6.9 10.0-20.0 [place] 258671-08-11 08:17:00 Test Item Value Reference Range Interpretation Comments Calcium Lvl (test code = Calcium Lvl) 8.5 8.5-10.5 [place] [address]-08-11 08:17:00 Test Item Value Reference Range Interpretation Comments eGFR (test code = eGFR) 10 [place] 258671-08-11 08:17:00 Test Item Value Reference Range Interpretation Comments Phosphorus (test code = Phosphorus) 3.0 2.5-4.5 [facility] DVQEP2991-03-29 08:17:00 Test Item Value Reference Range Interpretation Comments Magnesium Lvl (test code = Magnesium 2.4 1.8-2.4 Lvl) [facility] CenterTmxdukhFHSIEYKQMZ0610-03-67 08:17:00 Test Item Value Reference Range Interpretation Comments WBC (test code = WBC) 2.3 3.7-10.4 [facility] CenterYotqoorSJWVKAZNMV8554-74-87 08:17:00 Test Item Value Reference Range Interpretation Comments RBC (test code = RBC) 2.65 4.20-5.40 [facility] CenterFazkttgZUAROJIFSD7872-51-22 08:17:00 Test Item Value Reference Range Interpretation Comments Hgb (test code = Hgb) 7.9 12.0-16.0 [facility] CenterQkbutcdBREYCXCJSS5960-67-76 08:17:00 Test Item Value Reference Range Interpretation Comments Hct (test code = Hct) 24.0 36.0-48.0 [facility] CenterVckofqoDYEYKSAVNA8950-92-21 08:17:00 Test Item Value Reference Range Interpretation Comments MCV (test code = MCV) 90.6 80.0-98.0 [facility] CenterKaqldmuFGMQNTEONE5080-18-06 08:17:00 Test Item Value Reference Range Interpretation Comments MCH (test code = MCH) 29.7 pg 27.0-31.0 [facility] CenterNcksgseBWGYCFBZWJ8056-69-82 08:17:00 Test Item Value Reference Range Interpretation Comments MCHC (test code = MCHC) 32.7 32.0-36.0 [facility] CenterEaybostZIIQIIJLRO7777-00-59 08:17:00 Test Item Value Reference Range Interpretation Comments RDW (test code = RDW) 19.1 11.5-14.5 [facility] CenterFzmcrmrFEZWPGTLPV5851-79-53 08:17:00 Test Item Value Reference Range Interpretation Comments Platelet (test code = Platelet) 71 133-450 [facility] CenterMzxxticJVRCNCNHWP3064-58-86 08:17:00 Test Item Value Reference Range Interpretation Comments MPV (test code = MPV) 9.9 7.4-10.4 [facility] CenterVozdownDOMTQSMZMU7867-96-19 08:17:00 Test Item Value Reference Range Interpretation Comments Segs (test code = Segs) 56.1 45.0-75.0 [place] 114991-08-11 08:17:00 Test Item Value Reference Range Interpretation Comments Lymphocytes (test code = Lymphocytes) 28.9 20.0-40.0 [place] 114991-08-11 08:17:00 Test Item Value Reference Range Interpretation Comments Monocytes (test code = Monocytes) 8.1 2.0-12.0 [place] 114991-08-11 08:17:00 Test Item Value Reference Range Interpretation Comments Eosinophils (test code = 5.9 See_Comment [A utomated message] The Eosinophils) system which ge nerated this result tra nsmitted reference range : <=4.0. The reference r leo was not used to int erpret this result as normal/abnormal . [place] 114991-08-11 08:17:00 Test Item Value Reference Range Interpretation Comments Basophils (test code = 1.0 See_Comment [Aut omated message] The Basophils) system which ge nerated this result tra nsmitted reference range : <=1.0. The reference r leo was not used to int erpret this result as normal/abnormal . [facility] CenterTpqwdopWJZMKJHNON9179-37-98 08:17:00 Test Item Value Reference Range Interpretation Comments Neutrophils # (test code = Neutrophils 1.3 1.5-8.1 #) [place] 114991-08-11 08:17:00 Test Item Value Reference Range Interpretation Comments Lymphocytes # (test code = Lymphocytes 0.7 1.0-5.5 #) [place] 114991-08-11 08:17:00 Test Item Value Reference Range Interpretation Comments Monocytes # (test code 0.2 See_Comment [Aut omated message] The = Monocytes #) system which generated this result tra nsmitted reference range : <=0.8. The reference r leo was not used to int erpret this result as normal/abnormal . [place] 114991-08-11 08:17:00 Test Item Value Reference Range Interpretation Comments Eosinophils # (test code 0.1 See_Comment [A utomated message] The = Eosinophils #) system ic h generated this result tra nsmitted reference range : <=0.5. The reference r leo was not used to int erpret this result as normal/abnormal . [facility]2021-08-10 09:30:00 Test Item Value Reference Range Interpretation Comments Glucose Lvl (test code = Glucose Lvl) 61 70-99 [place] 258671-08-10 09:30:00 Test Item Value Reference Range Interpretation Comments BUN (test code = BUN) 13 7-22 [place] 258671-08-10 09:30:00 Test Item Value Reference Range Interpretation Comments Creatinine Lvl (test code = Creatinine 3.71 0.50-1.40 Lvl) [place] 258671-08-10 09:30:00 Test Item Value Reference Range Interpretation Comments Sodium Lvl (test code = Sodium Lvl) 136 135-145 [place] 258671-08-10 09:30:00 Test Item Value Reference Range Interpretation Comments Potassium Lvl (test code = Potassium 4.3 3.5-5.1 Lvl) [place] 258671-08-10 09:30:00 Test Item Value Reference Range Interpretation Comments Chloride Lvl (test code = Chloride Lvl) 103 95-109 [place] 258671-08-10 09:30:00 Test Item Value Reference Range Interpretation Comments CO2 (test code = CO2) 27 24-32 [place] 258671-08-10 09:30:00 Test Item Value Reference Range Interpretation Comments Calcium Lvl (test code = Calcium Lvl) 7.9 8.5-10.5 [place] 258671-08-10 09:30:00 Test Item Value Reference Range Interpretation Comments AGAP (test code = AGAP) 10.3 10.0-20.0 [facility] ARITT9137-46-20 09:30:00 Test Item Value Reference Range Interpretation Comments eGFR (test code = eGFR) 15 [place] 258671-08-10 09:30:00 Test Item Value Reference Range Interpretation Comments Magnesium Lvl (test code = Magnesium 2.3 1.8-2.4 Lvl) [place] 258671-08-10 09:30:00 Test Item Value Reference Range Interpretation Comments Phosphorus (test code = Phosphorus) 3.1 2.5-4.5 [facility]MbjmumiXPPLGXVZZE0284-38-74 09:30:00 Test Item Value Reference Range Interpretation Comments Segs (test code = Segs) 61.5 45.0-75.0 [place] 114991-08-10 09:30:00 Test Item Value Reference Range Interpretation Comments Lymphocytes (test code = Lymphocytes) 24.6 20.0-40.0 [place] 114991-08-10 09:30:00 Test Item Value Reference Range Interpretation Comments Monocytes (test code = Monocytes) 7.4 2.0-12.0 [place] 114991-08-10 09:30:00 Test Item Value Reference Range Interpretation Comments Eosinophils (test code = 5.5 See_Comment [A utomated message] The Eosinophils) system which ge nerated this result tra nsmitted reference range : <=4.0. The reference r leo was not used to int erpret this result as normal/abnormal . [place] 114991-08-10 09:30:00 Test Item Value Reference Range Interpretation Comments Basophils (test code = 1.0 See_Comment [Aut omated message] The Basophils) system which ge nerated this result tra nsmitted reference range : <=1.0. The reference r leo was not used to int erpret this result as normal/abnormal . [place] 114991-08-10 09:30:00 Test Item Value Reference Range Interpretation Comments Neutrophils # (test code = Neutrophils 1.6 1.5-8.1 #) [place] 114991-08-10 09:30:00 Test Item Value Reference Range Interpretation Comments Lymphocytes # (test code = Lymphocytes 0.6 1.0-5.5 #) [place] 114991-08-10 09:30:00 Test Item Value Reference Range Interpretation Comments Monocytes # (test code 0.2 See_Comment [Aut omated message] The = Monocytes #) system which generated this result tra nsmitted reference range : <=0.8. The reference r leo was not used to int erpret this result as normal/abnormal . [facility] CenterWxbduvqWZNPNCWJDN7489-70-51 09:30:00 Test Item Value Reference Range Interpretation Comments Eosinophils # (test code 0.1 See_Comment [A utomated message] The = Eosinophils #) system whic h generated this result tra nsmitted reference range : <=0.5. The reference r leo was not used to int erpret this result as normal/abnormal . [facility] CenterKldszcoOCEJOVTUSX9721-93-73 09:30:00 Test Item Value Reference Range Interpretation [...] studies, if clinically indicated, are recommended. CPT: 95023 [place] 114991-08-10 09:30:00 Test Item Value Reference Range Interpretation Comments WBC (test code = WBC) 2.5 3.7-10.4 [place] 114991-08-10 09:30:00 Test Item Value Reference Range Interpretation Comments RBC (test code = RBC) 2.68 4.20-5.40 [place] 114991-08-10 09:30:00 Test Item Value Reference Range Interpretation Comments Hgb (test code = Hgb) 8.2 12.0-16.0 [place] 17125-08-10 09:30:00 Test Item Value Reference Range Interpretation Comments Hct (test code = Hct) 24.3 36.0-48.0 [place] [address]125-08-10 09:30:00 Test Item Value Reference Range Interpretation Comments MCV (test code = MCV) 90.9 80.0-98.0 [place] [address]-08-10 09:30:00 Test Item Value Reference Range Interpretation Comments MCH (test code = MCH) 30.5 pg 27.0-31.0 [place] [address]-08-10 09:30:00 Test Item Value Reference Range Interpretation Comments MCHC (test code = MCHC) 33.6 32.0-36.0 [place] [address]-08-10 09:30:00 Test Item Value Reference Range Interpretation Comments RDW (test code = RDW) 19.4 11.5-14.5 [place] [address]-08-10 09:30:00 Test Item Value Reference Range Interpretation Comments Platelet (test code = Platelet) 70 133-450 [facility]HapjqogDFUJTNULDJ3316-29-62 09:30:00 Test Item Value Reference Range Interpretation Comments MPV (test code = MPV) 10.7 7.4-10.4 [place] 258671-08-09 05:10:00 Test Item Value Reference Range Interpretation Comments Glucose Lvl (test code = Glucose Lvl) 69 70-99 [facility]2021-08-09 05:10:00 Test Item Value Reference Range Interpretation Comments BUN (test code = BUN) 29 7-22 [facility]2021-08-09 05:10:00 Test Item Value Reference Range Interpretation Comments Creatinine Lvl (test code = Creatinine 5.14 0.50-1.40 Lvl) [facility]2021-08-09 05:10:00 Test Item Value Reference Range Interpretation Comments Sodium Lvl (test code = Sodium Lvl) 134 135-145 [facility]2021-08-09 05:10:00 Test Item Value Reference Range Interpretation Comments Potassium Lvl (test code = Potassium 5.1 3.5-5.1 Lvl) [facility]2021-08-09 05:10:00 Test Item Value Reference Range Interpretation Comments Chloride Lvl (test code = Chloride Lvl) 98 95-109 [facility]2021-08-09 05:10:00 Test Item Value Reference Range Interpretation Comments CO2 (test code = CO2) 29 24-32 [facility]2021-08-09 05:10:00 Test Item Value Reference Range Interpretation Comments Calcium Lvl (test code = Calcium Lvl) 7.6 8.5-10.5 [place] 258671-08-09 05:10:00 Test Item Value Reference Range Interpretation Comments AGAP (test code = AGAP) 12.1 10.0-20.0 [place] 258671-08-09 05:10:00 Test Item Value Reference Range Interpretation Comments eGFR (test code = eGFR) 10 [place] 258671-08-09 05:10:00 Test Item Value Reference Range Interpretation Comments Magnesium Lvl (test code = Magnesium 2.3 1.8-2.4 Lvl) [place] 258671-08-09 05:10:00 Test Item Value Reference Range Interpretation Comments Phosphorus (test code = Phosphorus) 5.0 2.5-4.5 [facility] CenterWnwoephRFHVENPKWA8794-58-96 05:10:00 Test Item Value Reference Range Interpretation Comments WBC (test code = WBC) 2.7 3.7-10.4 [facility] CenterLaqrudrFPSYLFBBHX2458-14-64 05:10:00 Test Item Value Reference Range Interpretation Comments RBC (test code = RBC) 2.80 4.20-5.40 [facility] CenterGwrtgnbOEIXCYZRZB3971-55-35 05:10:00 Test Item Value Reference Range Interpretation Comments Hgb (test code = Hgb) 8.5 12.0-16.0 [facility] CenterTjjvfksETADJYSWJO4183-98-95 05:10:00 Test Item Value Reference Range Interpretation Comments Hct (test code = Hct) 25.7 36.0-48.0 [facility] CenterLuwsmveUHEYYIXGQN3049-36-76 05:10:00 Test Item Value Reference Range Interpretation Comments MCV (test code = MCV) 91.7 80.0-98.0 [facility] CenterGkrfgamMGXSTAFAIB7035-25-06 05:10:00 Test Item Value Reference Range Interpretation Comments MCH (test code = MCH) 30.4 pg 27.0-31.0 [facility] CenterTlqvaboMDDDYNCDMX3573-64-53 05:10:00 Test Item Value Reference Range Interpretation Comments MCHC (test code = MCHC) 33.1 32.0-36.0 [facility] CenterOexjfghGFNVKRWEOF5769-85-65 05:10:00 Test Item Value Reference Range Interpretation Comments RDW (test code = RDW) 19.2 11.5-14.5 [facility] CenterRahliugKWLPYZXSHZ6982-45-09 05:10:00 Test Item Value Reference Range Interpretation Comments Platelet (test code = Platelet) 72 133-450 [facility] CenterAckkhixYAGAMTQJUH7632-84-83 05:10:00 Test Item Value Reference Range Interpretation Comments MPV (test code = MPV) 9.9 7.4-10.4 [facility] CenterJqwzzylWDFKFAQHOI5809-97-26 05:10:00 Test Item Value Reference Range Interpretation Comments Segs (test code = Segs) 72.6 45.0-75.0 [facility] CenterHbzwrwfSWYTDZBFSY9051-53-37 05:10:00 Test Item Value Reference Range Interpretation Comments Lymphocytes (test code = Lymphocytes) 15.9 20.0-40.0 [facility] CenterJyrnbztUVZCINWBWK2350-52-53 05:10:00 Test Item Value Reference Range Interpretation Comments Monocytes (test code = Monocytes) 7.3 2.0-12.0 [facility] CenterYhidbvmIYOHAQYKWT4738-08-58 05:10:00 Test Item Value Reference Range Interpretation Comments Eosinophils (test code = 3.4 See_Comment [A utomated message] The Eosinophils) system which ge nerated this result tra nsmitted reference range : <=4.0. The reference r leo was not used to int erpret this result as normal/abnormal . [facility] CenterJnxgxfiIAMPKBRUMG0704-27-08 05:10:00 Test Item Value Reference Range Interpretation Comments Basophils (test code = 0.8 See_Comment [Aut omated message] The Basophils) system which ge nerated this result tra nsmitted reference range : <=1.0. The reference r leo was not used to int erpret this result as normal/abnormal . [facility] CenterJguoursAROIFRQRWE0805-53-90 05:10:00 Test Item Value Reference Range Interpretation Comments Neutrophils # (test code = Neutrophils 1.9 1.5-8.1 #) [facility] CenterFobehjfWXGNSXNANR3602-18-82 05:10:00 Test Item Value Reference Range Interpretation Comments Lymphocytes # (test code = Lymphocytes 0.4 1.0-5.5 #) [facility] CenterYwzuevgWVAMWVCTYC7796-55-00 05:10:00 Test Item Value Reference Range Interpretation Comments Monocytes # (test code 0.2 See_Comment [Aut omated message] The = Monocytes #) system which generated this result tra nsmitted reference range : <=0.8. The reference r leo was not used to int erpret this result as normal/abnormal . [facility] CenterZewfjuaFJWXWZENIF8611-92-43 05:10:00 Test Item Value Reference Range Interpretation Comments Eosinophils # (test code 0.1 See_Comment [A utomated message] The = Eosinophils #) system whic h generated this result tra nsmitted reference range : <=0.5. The reference r leo was not used to int erpret this result as normal/abnormal . [facility]NONUNKEPBE9591-86-26 05:10:00 Test Item Value Reference Range Interpretation Comments Ca Ion WB (test code = Ca Ion WB) 1.10 1.05-1.25 [place] 323251-08-09 05:10:00 Test Item Value Reference Range Interpretation Comments Ca Norm WB (test code = Ca Norm WB) 1.06 1.05-1.25 [facility]2021-08-08 18:36:00 Test Item Value Reference Range Interpretation Comments C difficile DNA (test Negative (01/26/21 1:36 code = C difficile DNA) PM) [facility]2021-08-08 07:33:00 Test Item Value Reference Range Interpretation Comments Ca Ion WB (test code = Ca Ion WB) 1.12 1.05-1.25 [facility]2021-08-08 07:33:00 Test Item Value Reference Range Interpretation Comments Ca Norm WB (test code = Ca Norm WB) 1.07 1.05-1.25 [facility]2021-08-08 07:30:00 Test Item Value Reference Range Interpretation Comments Glucose Lvl (test code = Glucose Lvl) 65 70-99 [facility]2021-08-08 07:30:00 Test Item Value Reference Range Interpretation Comments BUN (test code = BUN) 21 7-22 [facility]2021-08-08 07:30:00 Test Item Value Reference Range Interpretation Comments Creatinine Lvl (test code = Creatinine 4.18 0.50-1.40 Lvl) [facility]2021-08-08 07:30:00 Test Item Value Reference Range Interpretation Comments Sodium Lvl (test code = Sodium Lvl) 136 135-145 [facility]2021-08-08 07:30:00 Test Item Value Reference Range Interpretation Comments Potassium Lvl (test code = Potassium 4.5 3.5-5.1 Lvl) [facility]2021-08-08 07:30:00 Test Item Value Reference Range Interpretation Comments Chloride Lvl (test code = Chloride Lvl) 99 95-109 [place] 258671-08-08 07:30:00 Test Item Value Reference Range Interpretation Comments CO2 (test code = CO2) 31 24-32 [place] 258671-08-08 07:30:00 Test Item Value Reference Range Interpretation Comments AGAP (test code = AGAP) 10.5 10.0-20.0 [place] 258671-08-08 07:30:00 Test Item Value Reference Range Interpretation Comments Calcium Lvl (test code = Calcium Lvl) 7.9 8.5-10.5 [place] 258671-08-08 07:30:00 Test Item Value Reference Range Interpretation Comments eGFR (test code = eGFR) 13 [place] 258671-08-08 07:30:00 Test Item Value Reference Range Interpretation Comments Magnesium Lvl (test code = Magnesium 2.2 1.8-2.4 Lvl) [place] 258671-08-08 07:30:00 Test Item Value Reference Range Interpretation Comments Phosphorus (test code = Phosphorus) 4.4 2.5-4.5 [place] 114991-08-08 07:30:00 Test Item Value Reference Range Interpretation Comments WBC (test code = WBC) 2.3 3.7-10.4 [place] 114991-08-08 07:30:00 Test Item Value Reference Range Interpretation Comments RBC (test code = RBC) 2.88 4.20-5.40 [place] 114991-08-08 07:30:00 Test Item Value Reference Range Interpretation Comments Hgb (test code = Hgb) 8.6 12.0-16.0 [place] 114991-08-08 07:30:00 Test Item Value Reference Range Interpretation Comments Hct (test code = Hct) 26.6 36.0-48.0 [place] 114991-08-08 07:30:00 Test Item Value Reference Range Interpretation Comments MCV (test code = MCV) 92.2 80.0-98.0 [place] [address]-08-08 07:30:00 Test Item Value Reference Range Interpretation Comments MCH (test code = MCH) 29.8 pg 27.0-31.0 [place] 114991-08-08 07:30:00 Test Item Value Reference Range Interpretation Comments MCHC (test code = MCHC) 32.4 32.0-36.0 [place] 114991-08-08 07:30:00 Test Item Value Reference Range Interpretation Comments RDW (test code = RDW) 19.7 11.5-14.5 [place] 114991-08-08 07:30:00 Test Item Value Reference Range Interpretation Comments Platelet (test code = Platelet) 83 133-450 [place] 114991-08-08 07:30:00 Test Item Value Reference Range Interpretation Comments MPV (test code = MPV) 10.2 7.4-10.4 [place] 114991-08-08 07:30:00 Test Item Value Reference Range Interpretation Comments Segs (test code = Segs) 64.0 45.0-75.0 [place] 114991-08-08 07:30:00 Test Item Value Reference Range Interpretation Comments Lymphocytes (test code = Lymphocytes) 24.1 20.0-40.0 [place] 114991-08-08 07:30:00 Test Item Value Reference Range Interpretation Comments Monocytes (test code = Monocytes) 7.0 2.0-12.0 [place] 114991-08-08 07:30:00 Test Item Value Reference Range Interpretation Comments Eosinophils (test code = 3.7 See_Comment [A utomated message] The Eosinophils) system which ge nerated this result tra nsmitted reference range : <=4.0. The reference r leo was not used to int erpret this result as normal/abnormal . [facility] CenterAochrjeNFEDHWMSJK3144-15-52 07:30:00 Test Item Value Reference Range Interpretation Comments Basophils (test code = 1.2 See_Comment [Aut omated message] The Basophils) system which ge nerated this result tra nsmitted reference range : <=1.0. The reference r leo was not used to int erpret this result as normal/abnormal . [facility] CenterAjtgcdvCQXTYXITDG9616-48-83 07:30:00 Test Item Value Reference Range Interpretation Comments Neutrophils # (test code = Neutrophils 1.5 1.5-8.1 #) [place] 114991-08-08 07:30:00 Test Item Value Reference Range Interpretation Comments Lymphocytes # (test code = Lymphocytes 0.6 1.0-5.5 #) [place] 114991-08-08 07:30:00 Test Item Value Reference Range Interpretation Comments Monocytes # (test code 0.2 See_Comment [Aut omated message] The = Monocytes #) system which generated this result tra nsmitted reference range : <=0.8. The reference r leo was not used to int erpret this result as normal/abnormal . [facility] CenterOhalurmVFKNSEAJCZ2737-20-33 07:30:00 Test Item Value Reference Range Interpretation Comments Eosinophils # (test code 0.1 See_Comment [A utomated message] The = Eosinophils #) system [employer] h generated this result tra nsmitted reference range : <=0.5. The reference r leo was not used to int erpret this result as normal/abnormal . [place] 258671-08-07 09:32:00 Test Item Value Reference Range Interpretation Comments Glucose Lvl (test code = Glucose Lvl) 59 70-99 [place] 258671-08-07 09:32:00 Test Item Value Reference Range Interpretation Comments BUN (test code = BUN) 11 7-22 [place] [address]-08-07 09:32:00 Test Item Value Reference Range Interpretation Comments Creatinine Lvl (test code = Creatinine 2.75 0.50-1.40 Lvl) [place] 258671-08-07 09:32:00 Test Item Value Reference Range Interpretation Comments Sodium Lvl (test code = Sodium Lvl) 138 135-145 [place] 258671-08-07 09:32:00 Test Item Value Reference Range Interpretation Comments Potassium Lvl (test code = Potassium 4.1 3.5-5.1 Lvl) [place] 258671-08-07 09:32:00 Test Item Value Reference Range Interpretation Comments Chloride Lvl (test code = Chloride Lvl) 104 95-109 [place] 258671-08-07 09:32:00 Test Item Value Reference Range Interpretation Comments CO2 (test code = CO2) 29 24-32 [place] 258671-08-07 09:32:00 Test Item Value Reference Range Interpretation Comments Calcium Lvl (test code = Calcium Lvl) 8.3 8.5-10.5 [place] 258671-08-07 09:32:00 Test Item Value Reference Range Interpretation Comments AGAP (test code = AGAP) 9.1 10.0-20.0 [place] 258671-08-07 09:32:00 Test Item Value Reference Range Interpretation Comments eGFR (test code = eGFR) 21 [place] 258671-08-07 09:32:00 Test Item Value Reference Range Interpretation Comments Magnesium Lvl (test code = Magnesium 2.2 1.8-2.4 Lvl) [facility]2021-08-07 09:32:00 Test Item Value Reference Range Interpretation Comments Phosphorus (test code = Phosphorus) 3.9 2.5-4.5 [place] 114991-08-07 09:32:00 Test Item Value Reference Range Interpretation Comments WBC (test code = WBC) 2.3 3.7-10.4 [place] 114991-08-07 09:32:00 Test Item Value Reference Range Interpretation Comments RBC (test code = RBC) 2.78 4.20-5.40 [place] 114991-08-07 09:32:00 Test Item Value Reference Range Interpretation Comments Hgb (test code = Hgb) 8.4 12.0-16.0 [facility] CenterDlwdryxJIMRNLKEDL8984-05-95 09:32:00 Test Item Value Reference Range Interpretation Comments Hct (test code = Hct) 25.2 36.0-48.0 [facility] CenterTlykxdpKXYPLHZCQV7277-08-87 09:32:00 Test Item Value Reference Range Interpretation Comments MCV (test code = MCV) 90.5 80.0-98.0 [facility] CenterWulwnrcSUAILJYXBL4401-82-76 09:32:00 Test Item Value Reference Range Interpretation Comments MCH (test code = MCH) 30.4 pg 27.0-31.0 [facility] CenterJgrxfyoMKVATANYLC3546-95-89 09:32:00 Test Item Value Reference Range Interpretation Comments MCHC (test code = MCHC) 33.5 32.0-36.0 [facility] CenterPqikddbHDJWWTEEHJ7915-90-20 09:32:00 Test Item Value Reference Range Interpretation Comments RDW (test code = RDW) 19.0 11.5-14.5 [facility] CenterQgqcwivFBQNCGVZGH0075-64-09 09:32:00 Test Item Value Reference Range Interpretation Comments Platelet (test code = Platelet) 87 133-450 [facility] CenterCkywpvvIKHFJARMCB7092-70-94 09:32:00 Test Item Value Reference Range Interpretation Comments MPV (test code = MPV) 10.0 7.4-10.4 [facility] BANK [id number] 05:33:00 Test Item Value Reference Range Interpretation Comments ABO/Rh (test code = ABO/Rh) B POS [facility] [id number] 05:33:00 Test Item Value Reference Range Interpretation Comments Antibody Scrn (test Negative (01/24/21 12:33 code = Antibody Scrn) AM) [facility] CenterQrrtasqXSRIBSJEJH1335-45-95 05:33:00 Test Item Value Reference Range Interpretation Comments Segs (test code = Segs) 60.2 45.0-75.0 [facility] CenterYmjntyzMZCMSPXJNU1494-50-32 05:33:00 Test Item Value Reference Range Interpretation Comments Lymphocytes (test code = Lymphocytes) 28.6 20.0-40.0 [facility] CenterMsgohcuMLCRWHLPML2806-14-04 05:33:00 Test Item Value Reference Range Interpretation Comments Monocytes (test code = Monocytes) 5.8 2.0-12.0 [facility] CenterEnssstnIRJMPXXWNS3327-20-72 05:33:00 Test Item Value Reference Range Interpretation Comments Eosinophils (test code = 4.2 See_Comment [A utomated message] The Eosinophils) system which ge nerated this result tra nsmitted reference range : <=4.0. The reference r leo was not used to int erpret this result as normal/abnormal . [facility] CenterDggmyntTBYZZPCTUI5765-93-78 05:33:00 Test Item Value Reference Range Interpretation Comments Basophils (test code = 1.2 See_Comment [Aut omated message] The Basophils) system which ge nerated this result tra nsmitted reference range : <=1.0. The reference r leo was not used to int erpret this result as normal/abnormal . [facility] CenterPzohfbhCDTWIHBNQZ6092-00-01 05:33:00 Test Item Value Reference Range Interpretation Comments Neutrophils # (test code = Neutrophils 2.2 1.5-8.1 #) [facility] CenterXkrozqxSHUXZBLQFS5441-10-01 05:33:00 Test Item Value Reference Range Interpretation Comments Lymphocytes # (test code = Lymphocytes 1.1 1.0-5.5 #) [facility] CenterEziloopDDACZUKWOG0932-27-18 05:33:00 Test Item Value Reference Range Interpretation Comments Monocytes # (test code 0.2 See_Comment [Aut omated message] The = Monocytes #) system which generated this result tra nsmitted reference range : <=0.8. The reference r leo was not used to int erpret this result as normal/abnormal . [facility] CenterAgzpkluWXFSDOYHBK3835-16-03 05:33:00 Test Item Value Reference Range Interpretation Comments Eosinophils # (test code 0.2 See_Comment [A utomated message] The = Eosinophils #) system whic h generated this result tra nsmitted reference range : <=0.5. The reference r leo was not used to int erpret this result as normal/abnormal . [facility] CenterGxhqferEWOWXQNFVJ3095-57-45 05:53:00 Test Item Value Reference Range Interpretation Comments PT (test code = PT) 14.4 s 12.0-14.7 [facility] CenterNpxszcpFSTDLYESND4490-50-89 05:53:00 Test Item Value Reference Range Interpretation Comments INR (test code = INR) 1.13 1 0.85-1.17 [facility] CenterMxwdjucMXADXWLVHH0080-27-98 05:53:00 Test Item Value Reference Range Interpretation Comments Fibrinogen Lvl (test code = Fibrinogen 319 230-510 Lvl) [facility] CenterXntbxaeNWSSVMDUEP7496-15-34 05:53:00 Test Item Value Reference Range Interpretation Comments Thrombin Time (test code = Thrombin 15.9 s 15.0-21.2 Time) [facility] CenterUvabamoEGMTCINDKF9436-19-94 05:53:00 Test Item Value Reference Range Interpretation Comments PTT (test code = PTT) 47.0 s 22.9-35.8 [facility] CenterZkdgjyzUYUSCFFDYQ1594-84-05 05:53:00 Test Item Value Reference Range Interpretation Comments D-Dimer (test code = D-Dimer) 0.91 [place] 114991-08-05 05:53:00 Test Item Value Reference Range Interpretation Comments Basophils # (test code 0.1 See_Comment [Aut omated message] The = Basophils #) system which generated this result tra nsmitted reference range : <=0.2. The reference r leo was not used to int erpret this result as normal/abnormal . [facility] CenterPARATHYROID [id number] 05:53:00 Test Item Value Reference Range Interpretation Comments Ca Ion WB (test code = Ca Ion WB) 1.24 1.05-1.25 [facility]ATHY[facility] [id number] 05:53:00 Test Item Value Reference Range Interpretation Comments Ca Norm WB (test code = Ca Norm WB) 1.25 1.05-1.25 [facility]woodBDA [id number] 10:09:00 Test Item Value Reference Range Interpretation Comments ALT (test code = ALT) 49 See_Comment [Auto mated message] The system which ge nerated this result transmit rohit reference range : <=65. The reference range was not used to interpr et this result as reji l/abnormal. [facility] BrownwoodBDA [id number] 10:09:00 Test Item Value Reference Range Interpretation Comments Albumin Lvl (test code = Albumin Lvl) 2.8 3.5-5.0 [facility] BrownwoodBDA [id number] 10:09:00 Test Item Value Reference Range Interpretation Comments Alk Phos (test code = Alk Phos) 41 39-136 [facility]woodBDA [id number] 10:09:00 Test Item Value Reference Range Interpretation Comments Bili Direct (test code 0.2 See_Comment [Aut omated message] The = Bili Direct) system which generated this result tra nsmitted reference range : <=0.3. The reference r leo was not used to int erpret this result as reji l/abnormal. [facility]woodBDA [id number] 10:09:00 Test Item Value Reference Range Interpretation Comments Bili Total (test code = Bili Total) 0.6 0.2-1.3 [facility]woodBDA [id number] 10:09:00 Test Item Value Reference Range Interpretation Comments Bili Indirect (test 0.4 See_Comment [Automa rohit message] The code = Bili Indirect) system which generated this result tra nsmitted reference range : <=1.0. The reference r leo was not used to int erpret this result as normal/abnormal . [facility] [place] [id number] 10:09:00 Test Item Value Reference Range Interpretation Comments Total Protein (test code = Total 5.6 6.4-8.4 Protein) [facility]woodBDA [id number] 10:09:00 Test Item Value Reference Range Interpretation Comments AST (test code = AST) 33 See_Comment [Auto mated message] The system which ge nerated this result transmit rohit reference range : <=37. The reference range was not used to interpr et this result as reji l/abnormal. [facility] CenterLionseek [id number] 10:09:00 Test Item Value Reference Range Interpretation Comments Globulin (test code = Globulin) 2.8 2.7-4.2 [facility] CenterLionseek [id number] 10:09:00 Test Item Value Reference Range Interpretation Comments A/G Ratio (test code = A/G Ratio) 1.0 1 0.7-1.6 [facility] CenterLionseek [id number] 10:09:00 Test Item Value Reference Range Interpretation Comments Amylase Lvl (test code = Amylase Lvl) 19 25-115 [facility]woodBDA [id number] 10:09:00 Test Item Value Reference Range Interpretation Comments Lipase Lvl (test code = Lipase Lvl) no gt 73-393 [facility] CenterJvppvddFKIMSLLSIH4145-41-89 10:09:00 Test Item Value Reference Range Interpretation Comments PTT (test code = PTT) 41.4 s 22.9-35.8 [facility] CenterRsvvldkNEXZIMFQBA5620-86-08 10:09:00 Test Item Value Reference Range Interpretation Comments PT (test code = PT) 15.4 s 12.0-14.7 [facility] BrownwoodXxjbkxaCRFROGUNTL6026-28-23 10:09:00 Test Item Value Reference Range Interpretation Comments INR (test code = INR) 1.24 1 0.85-1.17 [facility] CenterKfyvatxFCDRVTOYEF5566-73-66 10:09:00 Test Item Value Reference Range Interpretation Comments Fibrinogen Lvl (test code = Fibrinogen 312 230-510 Lvl) [facility] CenterWbdraskBFYLYTGFLB9694-67-69 10:09:00 Test Item Value Reference Range Interpretation Comments Thrombin Time (test code = Thrombin 16.6 s 15.0-21.2 Time) [facility] CenterUfpdlwuIBOWLQNMYA9728-94-57 10:09:00 Test Item Value Reference Range Interpretation Comments D-Dimer (test code = D-Dimer) 4.91 [facility] CenterVpzrojrRTPVQOPQSV8238-69-22 10:09:00 Test Item Value Reference Range Interpretation Comments Basophils # (test code 0.1 See_Comment [Aut omated message] The = Basophils #) system which generated this result tra nsmitted reference range : <=0.2. The reference r leo was not used to int erpret this result as normal/abnormal . [facility] [id number] 10:09:00 Test Item Value Reference Range Interpretation Comments Hgb A1C (test code = Hgb A1C) 5.6 [facility] CenterCHEM [id number] 09:07:00 Test Item Value Reference Range Interpretation Comments Amylase Lvl (test code = Amylase Lvl) 4 25-115 [facility] CenterVakirayVSKFDNQMJY4780-98-08 09:07:00 Test Item Value Reference Range Interpretation Comments Thrombin Time (test code = Thrombin 18.0 s 15.0-21.2 Time) [facility]KisfkolVANTTKBQTH5625-47-44 09:07:00 Test Item Value Reference Range Interpretation Comments PT (test code = PT) 24.6 s 12.0-14.7 [facility] HospitalAdnhxtrMSWADYNKWA0432-47-67 09:07:00 Test Item Value Reference Range Interpretation Comments INR (test code = INR) 2.31 1 0.85-1.17 [facility] HospitalVuoehqhBHGAMLILZU0922-99-80 09:07:00 Test Item Value Reference Range Interpretation Comments PTT (test code = PTT) 57.5 s 22.9-35.8 [facility] HospitalYwzqrovXJCGEINOOW3205-55-25 09:07:00 Test Item Value Reference Range Interpretation Comments Fibrinogen Lvl (test code = Fibrinogen 125 230-510 Lvl) [facility] HospitalTypkbsxQLHXZTCWUG8699-82-62 09:07:00 Test Item Value Reference Range Interpretation Comments D-Dimer (test code = D-Dimer) 2.28 [facility] [id number] 04:52:00 Test Item Value Reference Range Interpretation Comments RBC product (test code Product available = RBC product) (01/21/21 11:52 PM) [facility] CenterCARFINsix CorporationAC [id number] 00:38:00 Test Item Value Reference Range Interpretation Comments Troponin-I (test code no gt See_Comment [Auto mated message] The = Troponin-I) system which g enerated this result transmit rohit reference range : <=0.40. The reference r leo was not used to interpr et this result as reji l/abnormal. [facility] CenterClearbridge Accelerator [id number] 17:47:00 Test Item Value Reference Range Interpretation Comments BNP (test code = BNP) 2324 [facility] CenterClearbridge Accelerator [id number] 17:47:00 Test Item Value Reference Range Interpretation Comments Troponin-I (test code 0.02 See_Comment [Auto mated message] The = Troponin-I) system which g enerated this result transmit rohit reference range : <=0.40. The reference r leo was not used to interpr et this result as reji l/abnormal. [facility] CenterWefrsmkAFMAHXWBNU6691-37-04 17:47:00 Test Item Value Reference Range Interpretation Comments Hep Bs Ag (test code Negative *NA*(01/21/21 = Hep Bs Ag) 12:47 PM) [facility]woodBDA [id number] 17:43:00 Test Item Value Reference Range Interpretation Comments B/C Ratio (test code = B/C Ratio) 5 1 6-25 [facility] BrownwoodBDA [id number] 17:43:00 Test Item Value Reference Range Interpretation Comments ALT (test code = ALT) 66 See_Comment [Auto mated message] The system which ge nerated this result transmit rohit reference range : <=65. The reference range was not used to interpr et this result as reji l/abnormal. [facility] [place] [id number] 17:43:00 Test Item Value Reference Range Interpretation Comments Albumin Lvl (test code = Albumin Lvl) 3.0 3.5-5.0 [facility] [id number] 17:43:00 Test Item Value Reference Range Interpretation Comments Alk Phos (test code = Alk Phos) 40 39-136 [facility] BrownwoodBDA [id number] 17:43:00 Test Item Value Reference Range Interpretation Comments Bili Total (test code = Bili Total) 0.5 0.2-1.3 [facility] BrownwoodBDA [id number] 17:43:00 Test Item Value Reference Range Interpretation Comments Total Protein (test code = Total 5.7 6.4-8.4 Protein) [facility] BrownwoodBDA [id number] 17:43:00 Test Item Value Reference Range Interpretation Comments AST (test code = AST) 52 See_Comment [Auto mated message] The system which ge nerated this result transmit rohit reference range : <=37. The reference range was not used to interpr et this result as reji l/abnormal. [facility] [place] [id number] 17:43:00 Test Item Value Reference Range Interpretation Comments Globulin (test code = Globulin) 2.7 2.7-4.2 [facility] CenterLionseek [id number] 17:43:00 Test Item Value Reference Range Interpretation Comments A/G Ratio (test code = A/G Ratio) 1.1 1 0.7-1.6 [facility] CenterLionseek [id number] 17:43:00 Test Item Value Reference Range Interpretation Comments Lactic Acid Lvl (test code = Lactic 1.1 0.5-2.2 Acid Lvl) [facility] [id number] 16:20:00 Test Item Value Reference Range Interpretation Comments ABO/Rh (test code = ABO/Rh) B POS [facility] [id number] 16:20:00 Test Item Value Reference Range Interpretation Comments Antibody Scrn (test Negative (01/21/21 11:20 code = Antibody Scrn) AM) [facility] HospitalJjonlckFHDQUHWROJ2262-84-00 16:20:00 Test Item Value Reference Range Interpretation Comments Anisocyte (test code = 1+ *ABN*(01/21/21 Anisocyte) 11:20 AM) [facility]woodSonoma Beverage WorksBL[facility] [id number] 15:35:00 Test Item Value Reference Range Interpretation Comments Lactase Lvl (test code = Lactase Lvl) 2.0 [facility] BrownwoodSonoma Beverage [facility] [id number] 15:35:00 Test Item Value Reference Range Interpretation Comments Sucrase Lvl (test code = Sucrase Lvl) 38.6 [facility] CenterDynamicOpsHE[facility] [id number] 15:35:00 Test Item Value Reference Range Interpretation Comments Maltase Lvl (test code = Maltase Lvl) 177.2 [facility] CenteralikeBLOW[facility] [id number] 15:35:00 Test Item Value Reference Range Interpretation Comments Palatinase Lvl (test code = Palatinase 13.8 Lvl) [facility]wood[id number] 13:21:00 Test Item Value Reference Range Interpretation Comments Potassium WB (test code = Potassium WB) 5.1 3.5-5.1 [facility] Ce[id number] 13:21:00 Test Item Value Reference Range Interpretation Comments S Preg (test code = S Negative 8*NA*(01/21/21 Preg) 8:21 AM) [facility] [id number] 11:19:00 Test Item Value Reference Range Interpretation Comments Coronavirus (COVID-19) Not Detected (01/21/21 EMANUEL (test code = 6:19 AM) Coronavirus (COVID-19) EMANUEL) [facility] [id number] 16:39:05 Test Item Value Reference Range Interpretation Comments Glucose POC (test 183 mg/dL 70-115 H If you con food and nutrition services assistant your code = Glucose POC) patient critically ill, the Merlin-Accu Check Infrom II meter should not be used for Glucose determination. Draw a venous Glucose and send to the main Lab for analysis. Urine [id number] 11:32:13 Test Item Value Reference Range Interpretation [...] Escherichia coli C Urine Added by GL_SJM_UA_CUL_INDPOC Izgemnr9131-14-48 07:52:10 Test Item Value Reference Range Interpretation Comments Glucose POC (test 160 mg/dL 70-115 H If you con food and nutrition services assistant your code = Glucose POC) patient critically ill, the Merlin-Accu Check Infrom II meter should not be used for Glucose determination. Draw a venous Glucose and send to the main Lab for analysis. POC [id number] 19:32:05 Test Item Value Reference Range Interpretation Comments Glucose POC (test 184 mg/dL 70-115 H If you con food and nutrition services assistant your code = Glucose POC) patient critically ill, the Merlin-Accu Check Infrom II meter should not be used for Glucose determination. Draw a venous Glucose and send to the main Lab for analysis. POC [id number] 17:16:35 Test Item Value Reference Range Interpretation Comments Glucose POC (test 281 mg/dL 70-115 H Notify RN or MDIf you code = Glucose POC) consider your patient critically ill, the Merlin-Accu Chec k Infrom II meter should not be used for Glucos e determination. Draw a venous Glucose and send to the main Lab for analysis. POC [id number] 12:00:38 Test Item Value Reference Range Interpretation Comments Glucose POC (test 138 mg/dL 70-115 H Notify RN or MDIf you code = Glucose POC) consider your patient critically ill, the Merlin-Accu Chec k Infrom II meter should not be used for Glucos e determination. Draw a venous Glucose and send to the main Lab for analysis. POC [id number] 07:41:32 Test Item Value Reference Range Interpretation Comments Glucose POC (test 206 mg/dL 70-115 H Notify RN or MDIf you code = Glucose POC) consider your patient critically ill, the Merlin-Accu Chec k Infrom II meter should not be used for Glucos e determination. Draw a venous Glucose and send to the main Lab for analysis. Urinalysis [id number] 21:07:21 Test Item Value Reference Range Interpretation Comments UA WBC (test code = UA WBC) TNTC 0-5 A UA RBC (test code = UA RBC) 6-10 0-5 A UA Bacteria (test code = UA Bacteria) Profuse A UA Squam Epithelial (test code = UA 6-10 A Squam Epithelial) Urinalysis with Culture, if [id number] 20:35:14 Test Item Value Reference Range Interpretation [...] Micro Indicated Not Indicated A Ind?) POC [id number] 19:06:34 Test Item Value Reference Range Interpretation Comments Glucose POC (test 207 mg/dL 70-115 H If you con food and nutrition services assistant your code = Glucose POC) patient critically ill, the Merlin-Accu Check Infrom II meter should not be used for Glucose determination. Draw a venous Glucose and send to the main Lab for analysis. POC [id number] 17:12:03 Test Item Value Reference Range Interpretation Comments Glucose POC (test 173 mg/dL 70-115 H Notify RN or MDIf you code = Glucose POC) consider your patient critically ill, the Merlin-Accu Chec k Infrom II meter should not be used for Glucos e determination. Draw a venous Glucose and send to the main Lab for analysis. POC [id number] 11:58:01 Test Item Value Reference Range Interpretation Comments Glucose POC (test 289 mg/dL 70-115 H Notify RN or MDIf you code = Glucose POC) consider your patient critically ill, the Merlin-Accu Chec k Infrom II meter should not be used for Glucos e determination. Draw a venous Glucose and send to the main Lab for analysis. POC [id number] 08:19:37 Test Item Value Reference Range Interpretation Comments Glucose POC (test 201 mg/dL 70-115 H Notify RN or MDIf you code = Glucose POC) consider your patient critically ill, the Merlin-Accu Chec k Infrom II meter should not be used for Glucos e determination. Draw a venous Glucose and send to the main Lab for analysis. POC [id number] 20:37:35 Test Item Value Reference Range Interpretation Comments Glucose POC (test 272 mg/dL 70-115 H If you con food and nutrition services assistant your code = Glucose POC) patient critically ill, the Merlin-Accu Check Infrom II meter should not be used for Glucose determination. Draw a venous Glucose and send to the main Lab for analysis. POC [id number] 17:23:05 Test Item Value Reference Range Interpretation Comments Glucose POC (test 229 mg/dL 70-115 H If you con food and nutrition services assistant your code = Glucose POC) patient critically ill, the Merlin-Accu Check Infrom II meter should not be used for Glucose determination. Draw a venous Glucose and send to the main Lab for analysis. POC [id number] 12:01:01 Test Item Value Reference Range Interpretation Comments Glucose POC (test 155 mg/dL 70-115 H If you con food and nutrition services assistant your code = Glucose POC) patient critically ill, the Merlin-Accu Check Infrom II meter should not be used for Glucose determination. Draw a venous Glucose and send to the main Lab for analysis. POC [id number] 08:07:32 Test Item Value Reference Range Interpretation Comments Glucose POC (test 248 mg/dL 70-115 H If you con food and nutrition services assistant your code = Glucose POC) patient critically ill, the Merlin-Accu Check Infrom II meter should not be used for Glucose determination. Draw a venous Glucose and send to the main Lab for analysis. IG [id number] 06:50:39 Test Item Value Reference Range Interpretation Comments IG (test code = IG) 0.7 % 0.0-5.0 IG Abs (test code = IG Abs) 0 x10 N Complete Blood Count with Ozglmrvuumnu0169-97-57 06:50:38 Test Item Value Reference Range Interpretation [...] code = IPF) 0 % N Automated [id number] 06:50:38 Test Item Value Reference Range Interpretation Comments Neutro Auto (test code = Neutro 50.3 % 36.0-70.0 Auto) Lymph Auto (test code = Lymph Auto) 38.6 % 12.0-44.0 [place] Auto (test code = [place] Auto) 7.3 % 0.0-11.0 Eos, Auto (test code = Eos, Auto) 2.4 % 0.0-7.0 Basophil Auto (test code = Basophil 0.7 % 0.0-2.0 Auto) Neutro Absolute (test code = Neutro 3.0 x10 1.6-7.4 Absolute) Lymph Absolute (test code = Lymph 2.28 x10 .50-4.60 Absolute) [place] Absolute (test code = [place] .43 x10 .00-1.20 Absolute) Eos Absolute (test code = Eos 0.14 x10 0.00-0.74 Absolute) Baso Absolute (test code = Baso 0.04 x10 0.00-0.21 Absolute) Basic Metabolic [id number] 05:38:20 Test Item Value Reference Range Interpretation [...] = Lipemia) 0 mg/dL 8-11 Basic Metabolic [id number] 05:38:20 Test Item Value Reference Range Interpretation [...] = 0 mg/dL 8-11 Lipemia) Basic Metabolic [id number] 05:38:20 Test Item Value Reference Range Interpretation [...] ag e have not been validated by [facility] MDRD study and should be interpreted [...] code = 0 mg/dL 8-11 Lipemia) POC [id number] 20:28:33 Test Item Value Reference Range Interpretation Comments Glucose POC (test 169 mg/dL 70-115 H If you con food and nutrition services assistant your code = Glucose POC) patient critically ill, the Merlin-Accu Check Infrom II meter should not be used for Glucose determination. Draw a venous Glucose and send to the main Lab for analysis. POC [id number] 16:39:30 Test Item Value Reference Range Interpretation Comments Glucose POC (test 103 mg/dL 70-115 If you con food and nutrition services assistant your code = Glucose POC) patient critically ill, the Merlin-Accu Check Infrom II meter should not be used for Glucose determination. Draw a venous Glucose and send to the main Lab for analysis. RPR [id number] 12:08:56 Test Item Value Reference Range Interpretation Comments RPR Qual (test code = RPR Qual) Non-Reactive Non-Reactive Reactive Control (test code = Reactive Reactive Control) Weak Reactive Control (test Weak Reactive code = Weak Reactive Control) Non-Reactive Control (test code Non-Reactive = Non-Reactive Control) Lot # (test code = Lot #) [id number] N Expiration Dt (test code = 03-20-2021 N Expiration Dt) POC [id number] 11:52:31 Test Item Value Reference Range Interpretation Comments Glucose POC (test 250 mg/dL 70-115 H If you con food and nutrition services assistant your code = Glucose POC) patient critically ill, the Merlin-Accu Check Infrom II meter should not be used for Glucose determination. Draw a venous Glucose and send to the main Lab for analysis. POC [id number] 07:55:29 Test Item Value Reference Range Interpretation Comments Glucose POC (test 205 mg/dL 70-115 H If you con food and nutrition services assistant your code = Glucose POC) patient critically ill, the Merlin-Accu Check Infrom II meter should not be used for Glucose determination. Draw a venous Glucose and send to the main Lab for analysis. Lipid [id number] 05:46:04 Test Item Value Reference Range Interpretation [...] LDL/HDL Ratio=L DL Calc/HDL Chol Thyroid Stimulating [id number] 05:46:04 Test Item Value Reference Range Interpretation Comments TSH (test code = TSH) 3.274 mcIU/mL 0.550-4.780 Hemoglobin [id number] 05:41:08 Test Item Value Reference Range Interpretation Comments Hemoglobin A1c (test code 7.6 % 4.0-5.8 H Di abetic >=6.5 = Hemoglobin A1c) %Prediabet es 5.7-6.4 %Normal <5.7 % Hepatitis B Surface [id number] 21:19:36 Test Item Value Reference Range Interpretation Comments Hep Bs Ag (test code = Hep Bs Non-Reactive Non-Reactive Ag) Novel Coronavirus SARS-CoV-2, [id number] 11:16:16 Test Item Value Reference Range Interpretation [...] Emergency Use Authorization." Novel Coronavirus (COVID-19), EMANUEL [id number] 11:11:24TNPTest not sent and performed at [facility].Rapid was perfomed in Microbiology.Wrong covid test was ord ered.Urine DOA [id number] 00:17:49 Test Item Value Reference Range Interpretation [...] Propoxyphene Confirmation wi thin 7 days. Alcohol [id number] 00:17:29 Test Item Value Reference Range Interpretation Comments Ethanol Level 9.0 mg/dL N The pharmacolo gical (test code = response to blo od alcohol Ethanol Level) levels may va ry from individual to i ndividual. The fatal omkar ntration has been report ed to be >400 mg/dl. Comprehensive Metabolic [id number] 00:17:28 Test Item Value Reference Range Interpretation [...] = Lipemia) 0 g/dL 1-2 Comprehensive Metabolic [id number] 00:17:28 Test Item Value Reference Range Interpretation [...] = 0 g/dL 1-2 Lipemia) Comprehensive Metabolic [id number] 00:17:28 Test Item Value Reference Range Interpretation [...] g/dL 1-2 Lipemia) Complete Blood Count with [id number] 23:26:28 Test Item Value Reference Range Interpretation [...] code = IPF) 0 % N Automated [id number] 23:26:28 Test Item Value Reference Range Interpretation Comments Neutro Auto (test code = Neutro 67.1 % 36.0-70.0 Auto) Lymph Auto (test code = Lymph Auto) 23.3 % 12.0-44.0 [place] Auto (test code = [place] Auto) 5.8 % 0.0-11.0 Eos, Auto (test code = Eos, Auto) 2.3 % 0.0-7.0 Basophil Auto (test code = Basophil 0.8 % 0.0-2.0 Auto) Neutro Absolute (test code = Neutro 6.0 x10 1.6-7.4 Absolute) Lymph Absolute (test code = Lymph 2.10 x10 .50-4.60 Absolute) [place] Absolute (test code = [place] .52 x10 .00-1.20 Absolute) Eos Absolute (test code = Eos 0.21 x10 0.00-0.74 Absolute) Baso Absolute (test code = Baso 0.07 x10 0.00-0.21 Absolute) IG [id number] 23:26:28 Test Item Value Reference Range Interpretation Comments IG (test code = IG) 0.7 % 0.0-5.0 IG Abs (test code = IG Abs) 0 x10 N HERPES VIRUS ANTIBODY, [id number] 21:46:00 Test Item Value Reference Range Interpretation Comments HERPES VIRUS IGM (BEAKER) Negative SE E ATTACHMENT (test code = 1808) BLOOD [id number] 06:00:00 Test Item Value Reference Range Interpretation Comments CULTURE (BEAKER) (test No growth in 5 days code = 1095) BLOOD [id number] 06:00:00 Test Item Value Reference Range Interpretation Comments CULTURE (BEAKER) (test No growth in 5 days code = 1095) POCT-GLUCOSE [id number] 12:11:00 Test Item Value Reference Range Interpretation Comments POC-GLUCOSE METER 154 mg/dL 70-110 H TESTED AT [place] [address] ([facility] (test code = [place] 1538) [address] POCT-GLUCOSE [id number] 07:53:00 Test Item Value Reference Range Interpretation Comments POC-GLUCOSE METER 87 mg/dL 70-110 TESTED AT [place] [address] ([facility] (test code = [place] [facility] [address] 1538) POCT-GLUCOSE [id number] 06:49:00 Test Item Value Reference Range Interpretation Comments POC-GLUCOSE METER 79 mg/dL 70-110 TESTED AT [facility] 67[address] (BEAKER) (test code = [place] [address] 1538) COMPREHENSIVE METABOLIC [id number] 06:15:00 Test Item Value Reference Range Interpretation [...] S NOT APPLICABLE FOR DIALYSIS PATIEN TS. [id number] 06:11:00 Test Item Value Reference Range Interpretation Comments MAGNESIUM (BEAKER) (test code = 2.1 mg/dL 1.6-2.6 627) HEPATIC FUNCTION [id number] 06:11:00 Test Item Value Reference Range Interpretation [...] code = 513 U/L 6-55 H 347) [id number] 05:30:00 Test Item Value Reference Range Interpretation Comments FIBRINOGEN LEVEL (BEAKER) (test 368 mg/dl 225-434 code = 658) [id number] 05:30:00 Test Item Value Reference Range Interpretation Comments PARTIAL THROMBOPLASTIN TIME 42.2 seconds 22.5-36.0 H (BEAKER) (test code = 760) PROTHROMBIN TIME/[id number] 05:29:00 Test Item Value Reference Range Interpretation Comments PROTIME (BEAKER) (test code = 14.8 seconds 11.7-14.7 H 759) INR (BEAKER) (test code = 370) 1.2 <=5.9 RECOMMENDED COUMADIN/WARFARIN INR THERAPY RANGESSTANDARD DOSE: 2.0 - 3.0 Includes: PROPHYLAXIS forvenous thrombosis, systemic embolization; TREATMENT for venous thrombosis and/or pulmonary embolus.HIGH RISK: Target INR is 2.5-3.5 for patients with mechanical heart valves.POCT-GLUCOSE [id number] 21:09:00 Test Item Value Reference Range Interpretation Comments POC-GLUCOSE METER 178 mg/dL 70-110 H TESTED AT [facility] [address] ([facility] (test code = [place] [facility] 1538) [address] POCT-GLUCOSE [id number] 17:18:00 Test Item Value Reference Range Interpretation Comments POC-GLUCOSE METER 178 mg/dL 70-110 H TESTED AT [facility] [address] ([facility] (test code = [place] [facility] 1538) [address] POCT-GLUCOSE [id number] 13:48:00 Test Item Value Reference Range Interpretation Comments POC-GLUCOSE METER 150 mg/dL 70-110 H TESTED AT [place] [address] ([facility] (test code = [place] [facility] 1538) [address] FACTOR 5 ACTIVITY (BLEEDING RISK)2017-01-06 10:04:00 Test Item Value Reference Range Interpretation Comments FACTOR V ACTIVITY ([facility] (test code 90.0 % 60.0-150.0 = 665) Effective 10/24/2013: Reference Range Change-Adult onlyNew: 60.0-150.0 Previous: 50.0-150.0CYTOMEGALOVIRUS ANTIBODY, [id number] 09:42:00 Test Item Value Reference Range Interpretation Comments CYTOMEGALOVIRUS IGM ANTIBODY Negative ([facility] (test code = 816) HERPES VIRUS ANTIBODY, [id number] 08:59:00 Test Item Value Reference Range Interpretation Comments 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[facility] (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 G 1807) CYTOMEGALOVIRUS ANTIBODY, [id number] 08:59:00 Test Item Value Reference Range Interpretation Comments CYTOMEGALOVIRUS IGG ANTIBODY Positive ([facility] (test code = 790) EBV-VCA ANTIBODY, [id number] 08:59:00 Test Item Value Reference Range Interpretation Comments JASE-WALL VCA IGG ([facility] (test Positive code = 983) EBV-VCA ANTIBODY, [id number] 08:59:00 Test Item Value Reference Range Interpretation Comments JASE-WALL VCA IGM ([facility] (test Negative code = 984) POCT-GLUCOSE [id number] 07:59:00 Test Item Value Reference Range Interpretation Comments POC-GLUCOSE METER 81 mg/dL 70-110 TESTED AT [place] [address] ([facility] (test code = [place] [facility] [address] 1538) COMPREHENSIVE METABOLIC [id number] 06:23:00 Test Item Value Reference Range Interpretation Comments TOTAL PROTEIN 5.3 gm/dL 6.0-8.3 L ([facility] (test code = 770) ALBUMIN ([facility] 2.4 g/dL 3.5-5.0 L (test code = [...] S NOT APPLICABLE FOR DIALYSIS PATIEN TS. [id number] 06:17:00 Test Item Value Reference Range Interpretation Comments MAGNESIUM (BEAKER) (test code = 1.8 mg/dL 1.6-2.6 627) HEPATIC FUNCTION [id number] 06:17:00 Test Item Value Reference Range Interpretation [...] 364 U/L 5-34 H 353) ALT (SGPT) ([facility] (test code = 779 U/L 6-55 H 347) [id number] 06:00:00 Test Item Value Reference Range Interpretation Comments FIBRINOGEN LEVEL ([facility] (test 390 mg/dl 225-434 code = 658) [id number] 06:00:00 Test Item Value Reference Range Interpretation Comments PARTIAL THROMBOPLASTIN TIME 40.2 seconds 22.5-36.0 H ([facility] (test code = 760) PROTHROMBIN [id number] 05:59:00 Test Item Value Reference Range Interpretation Comments PROTIME ([facility] (test code = 14.6 seconds 11.7-14.7 759) INR ([facility] (test code = 370) 1.2 <=5.9 RECOMMENDED COUMADIN/WARFARIN INR THERAPY RANGESSTANDARD DOSE: 2.0 - 3.0 Includes: PROPHYLAXIS forvenous thrombosis, systemic embolization; TREATMENT for venous thrombosis and/or pulmonary embolus.HIGH RISK: Target INR is 2.5-3.5 for patients with mechanical heart valves.POCT-GLUCOSE [id number] 21:46:00 Test Item Value Reference Range Interpretation Comments POC-GLUCOSE METER 153 mg/dL 70-110 H TESTED AT [place] [address] ([facility] (test code = [place] [facility] 1538) [address] POCT-GLUCOSE [id number] 18:47:00 Test Item Value Reference Range Interpretation Comments POC-GLUCOSE METER 181 mg/dL 70-110 H TESTED AT [place] [address] ([facility] (test code = [place] [facility] 1538) [address] POCT-GLUCOSE [id number] 12:40:00 Test Item Value Reference Range Interpretation Comments POC-GLUCOSE METER 178 mg/dL 70-110 H TESTED AT [place] [address] ([facility] (test code = [place] [facility] 1538) [address] POCT-GLUCOSE [id number] 07:51:00 Test Item Value Reference Range Interpretation Comments POC-GLUCOSE METER 166 mg/dL 70-110 H TESTED AT [place] [address] ([facility] (test code = [place] [facility] 1538) [address] COMPREHENSIVE METABOLIC [id number] 03:26:00 Test Item Value Reference Range Interpretation [...] S NOT APPLICABLE FOR DIALYSIS PATIEN TS. [id number] 03:22:00 Test Item Value Reference Range Interpretation Comments MAGNESIUM (BEAKER) (test code = 1.4 mg/dL 1.6-2.6 L 627) HEPATIC FUNCTION [id number] 03:22:00 Test Item Value Reference Range Interpretation [...] code = 1009 U/L 6-55 H 347) [id number] 03:12:00 Test Item Value Reference Range Interpretation Comments AMMONIA (BEAKER) (test code = 348) 29 mol/L 18-72 [id number] 03:10:00 Test Item Value Reference Range Interpretation Comments PARTIAL THROMBOPLASTIN TIME 42.3 seconds 22.5-36.0 H (BEAKER) (test code = 760) PROTHROMBIN [id number] 03:09:00 Test Item Value Reference Range Interpretation Comments PROTIME (BEAKER) (test code = 16.4 seconds 11.7-14.7 H 759) INR (BEAKER) (test code = 370) 1.3 <=5.9 RECOMMENDED COUMADIN/WARFARIN INR THERAPY RANGESSTANDARD DOSE: 2.0 - 3.0 Includes: PROPHYLAXIS forvenous thrombosis, systemic embolization; TREATMENT for venous thrombosis and/or pulmonary embolus.HIGH RISK: Target INR is 2.5-3.5 for patients with mechanical heart valves.[id number] 03:09:00 Test Item Value Reference Range Interpretation Comments FIBRINOGEN LEVEL (BEAKER) (test 413 mg/dl 225-434 code = 658) CBC W/PLT COUNT & AUTO [id number] 03:09:00 Test Item Value Reference Range Interpretation [...] L 0.00-0.20 (test code = 417) 0.00POCT-GLUCOSE [id number] 22:33:00 Test Item Value Reference Range Interpretation Comments POC-GLUCOSE METER 230 mg/dL 70-110 H TESTED AT [facility] [address] ([facility] (test code = [place] 1538) [address] POCT-GLUCOSE [id number] 18:17:00 Test Item Value Reference Range Interpretation Comments POC-GLUCOSE METER 222 mg/dL 70-110 H TESTED AT [facility] 67[address] (BEAKER) (test code = [place] 1538) [address] COMPREHENSIVE METABOLIC [id number] 16:59:00 Test Item Value Reference Range Interpretation [...] PATIEN TS. PERIPHERAL BLOOD SMEAR - PATHOLOGIST [id number] 15:30:00 Test Item Value Reference Range Interpretation Comments RBC MORPHOLOGY Polychromasia (BEAKER) (test code = 2846) RBC MORPHOLOGY Anisocytosis (BEAKER) (test code = 09346) PERIPHERAL SMR REVIEW Cell counts confirmed (BEAKER) (test code = 8410) [id number] Josefina Lara M.D. (BEAKER) (test code = (electronic signature) 8807) PROTHROMBIN [id number] 15:12:00 Test Item Value Reference Range Interpretation Comments PROTIME ([employer]) (test code = 16.6 seconds 11.7-14.7 H 759) INR ([employer]) (test code = 370) 1.4 <=5.9 RECOMMENDED COUMADIN/WARFARIN INR THERAPY RANGESSTANDARD DOSE: 2.0 - 3.0 Includes: PROPHYLAXIS forvenous thrombosis, systemic embolization; TREATMENT for venous thrombosis and/or pulmonary embolus.HIGH RISK: Target INR is 2.5-3.5 for patients with mechanical heart valves.ANTI-NUCLEAR ANTIBODY (IVETTE)2017-01-04 14:32:00 Test Item Value Reference Range Interpretation Comments ANTI-NUCLEAR ANTIBODY (IVETTE) ([employer]) Negative Negative (test code = 418) POCT-GLUCOSE [id number] 12:47:00 Test Item Value Reference Range Interpretation Comments POC-GLUCOSE METER 212 mg/dL 70-110 H TESTED AT [facility] 67[address] ([employer]) (test code = [place] 1538) [address] [id number] 12:34:00 Test Item Value Reference Range Interpretation Comments RPR SCREEN ([employer]) (test code = Nonreactive Nonreactive 420) CLOSTRIDIUM DIFFICILE TOXIN [id number] 10:12:00 Test Item Value Reference Range Interpretation Comments CLOSTRIDIUM DIFFICILE TOXIN, PCR Not Detected Not Detected ([employer]) (test code = 1525) This qualitative real-time [...] Reference Range Change-Adult onlyNew: 60.0-150.0 Previous: 50.0-150.0POCT-GLUCOSE [id number] 06:40:00 Test Item Value Reference Range Interpretation Comments POC-GLUCOSE METER 167 mg/dL 70-110 H TESTED AT [facility] [address] (BEAKER) (test code = [place] 1538) [address] COMPREHENSIVE METABOLIC [id number] 04:08:00 Test Item Value Reference Range Interpretation [...] ESTIM ATED GFR. Specimen slightly ictericHEPATIC FUNCTION [id number] 04:06:00 Test Item Value Reference Range Interpretation [...] 1091 U/L 6-55 H 347) Specimen slightly jnqsprbSGJYNCSDZA2309-41-44 04:01:00 Test Item Value Reference Range Interpretation Comments FIBRINOGEN LEVEL (BEAKER) (test 379 mg/dl 225-434 code = 658) [id number] 04:01:00 Test Item Value Reference Range Interpretation Comments PARTIAL THROMBOPLASTIN TIME 40.7 seconds 22.5-36.0 H (BEAKER) (test code = 760) PROTHROMBIN [id number] 04:00:00 Test Item Value Reference Range Interpretation [...] L 0.00-0.20 (test code = 417) 0.00POCT-GLUCOSE [id number] 00:19:00 Test Item Value Reference Range Interpretation Comments POC-GLUCOSE METER 159 mg/dL 70-110 H TESTED AT [facility] 6720 (BEAKER) (test code = BR[place] Denny [place] 1538) [address] POCT-GLUCOSE [id number] 18:56:00 Test Item Value Reference Range Interpretation Comments POC-GLUCOSE METER 192 mg/dL 70-110 H TESTED AT [facility] 6720 (BEAKER) (test code = [place] Eduin [place] 1538) [address] COMPREHENSIVE METABOLIC [id number] 16:55:00 Test Item Value Reference Range Interpretation [...] CALCULATE ESTIM ATED GFR. Specimen slightly ictericPROTHROMBIN TIME/[id number] 16:37:00 Test Item Value Reference Range Interpretation Comments PROTIME (BEAKER) (test code = 20.9 seconds 11.7-14.7 H 759) INR (BEAKER) (test code = 370) 1.8 <=5.9 RECOMMENDED COUMADIN/WARFARIN INR THERAPY RANGESSTANDARD DOSE: 2.0 - 3.0 Includes: PROPHYLAXIS forvenous thrombosis, systemic embolization; TREATMENT for venous thrombosis and/or pulmonary embolus.HIGH RISK: Target INR is 2.5-3.5 for patients with mechanical heart valves.HEPATITIS B SURFACE [id number] 14:05:00 Test Item Value Reference Range Interpretation Comments HEPATITIS B SURFACE ANTIBODY < mIU/mL <8.0 (BEAKER) (test code = 647) HEPATITIS B CORE ANTIBODY, [id number] 13:43:00 Test Item Value Reference Range Interpretation Comments HEPATITIS B CORE TOTAL ANTIBODY Nonreactive Nonreactive (BEAKER) (test code = 497) BLOOD GAS, [id number] 13:35:00 Test Item Value Reference Range Interpretation [...] code = 1819) 28.0 % URINALYSIS W/ [id number] 13:16:00 Test Item Value Reference Range Interpretation [...] 1584) SOURCE(BEAKER) (test code = Urine, [place] 0725) VITAMIN D, 31-[id number] 13:14:00 Test Item Value Reference Range Interpretation Comments VITAMIN D 25-OH (BEAKER) (test code = < ng/mL 13.0-47.8 L 2764) ALPHA FETOPROTEIN (AFP), TUMOR [id number] 13:06:00 Test Item Value Reference Range Interpretation Comments ALPHA-FETOPROTEIN (BEAKER) (test code < ng/mL <10.0 = 1094) Effective 05/08/2014: Reference Range ChangeNew: <10.0 Previous: 0.0-8.0 HEMOGLOBIN [id number] 13:05:00 Test Item Value Reference Range Interpretation Comments HEMOGLOBIN A1C (BEAKER) (test code = 7.6 % 4.3-6.1 H 368) CARCINOEMBRYONIC ANTIGEN (CEA)2017-01-03 12:59:00 Test Item Value Reference Range Interpretation Comments CARCINOEMBRYONIC ANTIGEN (BEAKER) 2.0 ng/mL 0.0-5.0 (test code = 685) [id number] 12:59:00 Test Item Value Reference Range Interpretation Comments FERRITIN (BEAKER) (test code = 1841 ng/mL 5-275 H 361) Effective 05/08/2014: Reference Range ChangeNew: Male 5-275 Previous: Male 22-322 Female 5-275 Female [id number] 12:58:00 Test Item Value Reference Range Interpretation Comments T4 TOTAL (BEAKER) (test code = 895) 4.5 ug/dL 4.9-11.7 L [id number] 12:58:00 Test Item Value Reference Range Interpretation Comments THYROID STIMULATING HORMONE 1.79 uIU/mL 0.35-4.94 (BEAKER) (test code = 772) [id number] 12:58:00 Test Item Value Reference Range Interpretation Comments T3 TOTAL (BEAKER) (test code = 656) 34 ng/dL 48-159 L Effective 05/08/2014: Reference Range ChangeNew: 48-159 Previous: 60-181 CALCIUM, [id number] 12:47:00 Test Item Value Reference Range Interpretation Comments CALCIUM IONIZED (BEAKER) (test 1.05 mmol/L 1.12-1.27 L code = 698) PH, BLOOD (BEAKER) (test code = 7.43 1810) [id number] 12:42:00 Test Item Value Reference Range Interpretation [...] % 20-55 (test code = 2590) URIC [id number] 12:40:00 Test Item Value Reference Range Interpretation Comments URIC ACID (BEAKER) (test code = 16.0 mg/dL 2.6-7.2 H 773) Specimen slightly ictericLIPID [id number] 12:40:00 Test Item Value Reference Range Interpretation Comments TRIGLYCERIDES (BEAKER) (test code = 134 mg/dL 540) CHOLESTEROL (BEAKER) (test code = 120 mg/dL 631) HDL CHOLESTEROL (AKER) (test code 7 mg/dL = 976) LDL CHOLESTEROL CALCULATED ([facility] 86 mg/dL (test code = 633) Triglyceride Reference Range: Low Risk <150 Borderline 150-199 High Risk 200-499 Very High Risk >=500Cholesterol Reference Range: Low Risk <200 Borderline 200-239 High Risk >240HDL Cholesterol Reference Range: Low Risk >=60 High Risk <40LDL Cholesterol Reference Range: Optimal <100 Near Optimal 100-129 Borderline 130-159 High 160-189 Very High >=190 Specimen slightly ictericBILIRUBIN, [id number] 12:40:00 Test Item Value Reference Range Interpretation Comments BILIRUBIN DIRECT ([employer]) (test 2.4 mg/dL 0.1-0.5 H code = 706) GAMMA GLUTAMYL TRANSFERASE (GGT)2017-01-03 12:40:00 Test Item Value Reference Range Interpretation Comments GAMMA GLUTAMYL TRANSFERASE ([employer]) 53 U/L 9-64 (test code = 364) Specimen slightly [id number] 12:39:00 Test Item Value Reference Range Interpretation Comments ETHANOL ([employer]) (test code = 400) < mg/dL <=10 SCREEN, [id number] 12:36:00 Test Item Value Reference Range Interpretation Comments TEST URINE ([employer]) (test Negative code = 583) POCT-GLUCOSE [id number] 12:34:00 Test Item Value Reference Range Interpretation Comments POC-GLUCOSE METER 189 mg/dL 70-110 H TESTED AT [facility] 6720 (Five[employer]) (test code = BROOKE Denny [facility] 1538) [address] HIV-1 ANTIGEN WITH HIV-1/2 [id number] 11:58:00 Test Item Value Reference Range Interpretation Comments HIV-1 ANTIGEN WITH HIV 1\\T\\2 Nonreactive Nonreactive ANTIBODY (2) ([employer]) (test code = 2586) TROPONIN [id number] 09:44:00 Test Item Value Reference Range Interpretation Comments TROPONIN I ([employer]) (test code = 0.34 ng/mL 0.00-0.03 397) [...] Previous: 0.0-4.9CK-MB Reference Range:<6.7 Normal6.7-10.0 Borderline>10.0 AbnormalACETAMINOPHEN [id number] 08:31:00 Test Item Value Reference Range Interpretation Comments ACETAMINOPHEN LEVEL (BEAKER) (test < ug/mL 10.0-30.0 L code = 344) TROPONIN [id number] 05:53:00 Test Item Value Reference Range Interpretation [...] acute neurological disease, and persistent tachyarrhythmia.BASIC METABOLIC [id number] 05:53:00 Test Item Value Reference Range Interpretation [...] TO CALCULA TE ESTIMATED GFR. Specimen slightly lsjjkasGOHXKCLJCC5914-92-77 05:52:00 Test Item Value Reference Range Interpretation Comments PHOSPHORUS (BEAKER) (test code = 5.7 mg/dL 2.3-4.7 H 604) HEPATIC FUNCTION [id number] 05:52:00 Test Item Value Reference Range Interpretation [...] Specimen slightly ictericCREATINE KINASE (CK), TOTAL AND [id number] 05:52:00 Test Item Value Reference Range Interpretation Comments CREATINE KINASE TOTAL (BEAKER) 341 U/L 29-200 H (test code = 380) CREATINE KINASE-MB (BEAKER) (test 5.4 ng/mL 0.0-6.6 code = 750) CREATINE KINASE-MB INDEX (BEAKER) 1.6 % (test code = 395) Effective 05/08/2014: CK-MB Reference Range ChangeNew: 0.0-6.6 Previous: 0.0-4.9CK-MB Reference Range:<6.7 Normal6.7-10.0 Borderline>10.0 AbnormalCBC W/PLT COUNT & AUTO [id number] 05:48:00 Test Item Value Reference Range Interpretation [...] K/ L 0.00-0.20 (test code = 417) 0.40VRYGGWGRET2653-55-76 05:09:00 Test Item Value Reference Range Interpretation Comments FIBRINOGEN LEVEL (BEAKER) (test 427 mg/dl 225-434 code = 658) [id number] 05:09:00 Test Item Value Reference Range Interpretation Comments PARTIAL THROMBOPLASTIN TIME 36.2 seconds 22.5-36.0 H (BEAKER) (test code = 760) PROTHROMBIN TIME/[id number] 05:08:00 Test Item Value Reference Range Interpretation Comments PROTIME (BEAKER) (test code = 22.8 seconds 11.7-14.7 H 759) INR (BEAKER) (test code = 370) 2.0 <=5.9 RECOMMENDED COUMADIN/WARFARIN INR THERAPY RANGESSTANDARD DOSE: 2.0 - 3.0 Includes: PROPHYLAXIS forvenous thrombosis, systemic embolization; TREATMENT for venous thrombosis and/or pulmonary embolus.HIGH RISK: Target INR is 2.5-3.5 for patients with mechanical heart valves.HEPATITIS PANEL, [id number] 03:40:00 Test Item Value Reference Range Interpretation Comments HEPATITIS A IGM ANTIBODY (BEAKER) Nonreactive Nonreactive (test code = 498) HEPATITIS B CORE IGM ANTIBODY Nonreactive Nonreactive (BEAKER) (test code = 645) HEPATITIS C ANTIBODY (BEAKER) Nonreactive Nonreactive (test code = 367) HEPATITIS B SURFACE ANTIGEN (2) Nonreactive Nonreactive (BEAKER) (test code = 2585) CREATININE, RANDOM [id number] 03:18:00 Test Item Value Reference Range Interpretation Comments CREATININE URINE (BEAKER) (test 118.7 mg/dL code = 375) Reference Range: No NormalsSODIUM, RANDOM [id number] 03:18:00 Test Item Value Reference Range Interpretation Comments SODIUM URINE (BEAKER) (test code = 60 meq/L 243) Reference Range: No NormalsUREA NITROGEN, RANDOM [id number] 03:18:00 Test Item Value Reference Range Interpretation Comments UREA NITROGEN URINE (BEAKER) (test 303 mg/dL code = 538) Reference Range: No [id number] 03:07:00 Test Item Value Reference Range Interpretation Comments AMMONIA (BEAKER) (test code = 348) 48 mol/L 18-72 [id number] 02:57:00 Test Item Value Reference Range Interpretation [...] within 95-100% range. URINALYSIS W/ REFLEX URINE [id number] 02:53:00 Test Item Value Reference Range Interpretation [...] = 514) SOURCE(BEAKER) (test code = 2795) [id number] 02:49:00 Test Item Value Reference Range Interpretation Comments PARTIAL THROMBOPLASTIN TIME 39.4 seconds 22.5-36.0 H (BEAKER) (test code = 760) PROTHROMBIN [id number] 02:48:00 Test Item Value Reference Range Interpretation Comments PROTIME (BEAKER) (test code = 22.0 seconds 11.7-14.7 H 759) INR (BEAKER) (test code = 370) 1.9 <=5.9 RECOMMENDED COUMADIN/WARFARIN INR THERAPY RANGESSTANDARD DOSE: 2.0 - 3.0 Includes: PROPHYLAXIS forvenous thrombosis, systemic embolization; TREATMENT for venous thrombosis and/or pulmonary embolus.HIGH RISK: Target INR is 2.5-3.5 for patients with mechanical heart valves.[id number] 02:48:00 Test Item Value Reference Range Interpretation Comments FIBRINOGEN LEVEL (BEAKER) (test 421 mg/dl 225-434 code = 658) BLOOD GAS, [id number] 02:43:00 Test Item Value Reference Range Interpretation [...] 21.0 % CBC W/PLT COUNT & AUTO [id number] 02:43:00 Test Item Value Reference Range Interpretation [...] code = 417) 0.00LACTIC ACID, VENOUS, WHOLE [id number] 02:35:00 Test Item Value Reference Range Interpretation Comments LACTATE BLOOD VENOUS (2) (BEAKER) 0.8 mmol/L 0.5-2.2 (test code = 2872) Effective 10/23/2015: Units/Reference Range ChangeNew: 0.5-2.2 mmol/L Previous: 5-20 mg/dLSpecimen slightly [id number] 11:32:00 Test Item Value Reference Range Interpretation Comments AGAP (test code = AGAP) 14.6 10.0-20.0 [id number] 11:32:00 Test Item Value Reference Range Interpretation Comments eGFR (test code = eGFR) 33 [facility]NwiapkrIDHEXUMEXOMY0867-23-27 11:32:00 Test Item Value Reference Range Interpretation Comments Calcium Lvl (test code = Calcium Lvl) 8.3 8.5-10.5 [facility] HospitalIujfpazFDGMPZFVTVKC7245-05-27 11:32:00 Test Item Value Reference Range Interpretation Comments Glucose Lvl (test code = Glucose Lvl) 81 70-99 [facility] HospitalCllyanaJLRVWLYDLYEX3801-47-32 11:32:00 Test Item Value Reference Range Interpretation Comments Creatinine Lvl (test code = Creatinine 1.95 0.50-1.40 Lvl) [facility] HospitalNaulvyxFFMGBTJZDJSX4089-06-92 11:32:00 Test Item Value Reference Range Interpretation Comments BUN (test code = BUN) 55 7-22 [facility] HospitalUqxyqlwEOXFXKTUZRYA9551-49-17 11:32:00 Test Item Value Reference Range Interpretation Comments CO2 (test code = CO2) 19 24-32 [facility] HospitalAgsbvcdOLBILOBIGXWG8052-93-96 11:32:00 Test Item Value Reference Range Interpretation Comments Chloride Lvl (test code = Chloride Lvl) 110 95-109 [facility] HospitalZwoinnoHERLABYHVQPZ0131-77-06 11:32:00 Test Item Value Reference Range Interpretation Comments Sodium Lvl (test code = Sodium Lvl) 139 135-145 [facility] HospitalSvuyztpVBEXPXJMDHOJ6582-96-91 11:32:00 Test Item Value Reference Range Interpretation Comments Potassium Lvl (test code = Potassium 4.6 3.5-5.1 Lvl) [facility] CenterTtacsfhCHIBYQMWQZ6365-29-56 11:32:00 Test Item Value Reference Range Interpretation Comments Lymphocytes (test code = Lymphocytes) 30.4 20.0-40.0 [facility] CenterGzragzeZDBWAGEZIV5504-87-37 11:32:00 Test Item Value Reference Range Interpretation Comments Eosinophils (test code = 4.5 See_Comment [A utomated message] The Eosinophils) system which ge nerated this result tra nsmitted reference range : <=4.0. The reference r leo was not used to int erpret this result as normal/abnormal . [facility] CenterBiojljkQXEEYZXITD3938-04-15 11:32:00 Test Item Value Reference Range Interpretation Comments Monocytes (test code = Monocytes) 13.7 2.0-12.0 [facility] CenterZffiwqdYXNJFFABAZ3967-81-74 11:32:00 Test Item Value Reference Range Interpretation Comments Segs-Bands # (test code = Segs-Bands #) 2.6 1.5-8.1 [facility] CenterTwoeqkeNQJCVEUATC2583-49-16 11:32:00 Test Item Value Reference Range Interpretation Comments Basophils (test code = 0.7 See_Comment [Aut omated message] The Basophils) system which ge nerated this result tra nsmitted reference range : <=1.0. The reference r leo was not used to int erpret this result as normal/abnormal . [facility] CenterVcgnlesJWGKVQNHYE1699-55-58 11:32:00 Test Item Value Reference Range Interpretation Comments Monocytes # (test code 0.7 See_Comment [Aut omated message] The = Monocytes #) system which generated this result tra nsmitted reference range : <=0.8. The reference r leo was not used to int erpret this result as normal/abnormal . [facility] CenterJtjebsfUNASOCPDDD9187-42-42 11:32:00 Test Item Value Reference Range Interpretation Comments Lymphocytes # (test code = Lymphocytes 1.6 1.0-5.5 #) [facility] CenterXcoidwqZLABOYVCJH0278-85-72 11:32:00 Test Item Value Reference Range Interpretation Comments Eosinophils # (test code 0.2 See_Comment [A utomated message] The = Eosinophils #) system whic h generated this result tra nsmitted reference range : <=0.5. The reference r leo was not used to int erpret this result as normal/abnormal . [facility] CenterFwudjffBCSJHKDOQB3971-41-21 11:32:00 Test Item Value Reference Range Interpretation Comments Segs (test code = Segs) 50.7 45.0-75.0 [facility] CenterDrsogycFJPVSMQNPD7100-99-07 11:32:00 Test Item Value Reference Range Interpretation [...] iron deficiency anemia, and renal disease. CPT: 54764 [facility] CenterPyehyddWBUCAEGUDW6925-56-35 11:32:00 Test Item Value Reference Range Interpretation Comments Hct (test code = Hct) 28.1 36.0-48.0 [facility] CenterWvhibtqARNDZGAFEP3307-12-88 11:32:00 Test Item Value Reference Range Interpretation Comments RBC (test code = RBC) 3.39 4.20-5.40 [facility] CenterOyrqthmNDSSXFDHFA2979-66-42 11:32:00 Test Item Value Reference Range Interpretation Comments Hgb (test code = Hgb) 8.9 12.0-16.0 [facility] CenterWypyizrEANBXWSIZX8348-16-33 11:32:00 Test Item Value Reference Range Interpretation Comments WBC (test code = WBC) 5.1 3.7-10.4 [facility] CenterQuyqkvaAXTFERUHYI7455-79-36 11:32:00 Test Item Value Reference Range Interpretation Comments MPV (test code = MPV) 11.3 7.4-10.4 [facility] CenterGjvhuszWJGKBWDJSX6266-99-02 11:32:00 Test Item Value Reference Range Interpretation Comments Platelet (test code = Platelet) 118 133-450 [facility] CenterLvztvjiICRLIMUPUF4466-37-14 11:32:00 Test Item Value Reference Range Interpretation Comments MCHC (test code = MCHC) 31.8 32.0-36.0 [facility] CenterZjeupvzNCKCRZJJPC5602-17-02 11:32:00 Test Item Value Reference Range Interpretation Comments RDW (test code = RDW) 18.0 11.5-14.5 [facility] CenterBfstlazIFMFKFYJJI5101-45-40 11:32:00 Test Item Value Reference Range Interpretation Comments MCV (test code = MCV) 83.0 80.0-98.0 [facility] CenterUjvsjrsBOZOJOANHJ6441-86-17 11:32:00 Test Item Value Reference Range Interpretation Comments MCH (test code = MCH) 26.4 pg 27.0-31.0 [facility]AmjvymjVNORUDBEDJ0071-52-93 11:32:00 Test Item Value Reference Range Interpretation Comments C3 Complement (test code = C3 137 88-201 Complement) [facility] TylerBkxbcpwAUQXVZVDEX9260-01-88 11:32:00 Test Item Value Reference Range Interpretation Comments HIV. (test code = Negative *NA*(07/30/16 HIV.) 5:32 AM) [facility] CenterIoylqvxAFVLVKDDGT3327-25-28 11:05:00 Test Item Value Reference Range Interpretation [...] iron deficiency anemia, and renal disease. CPT: 32668 [facility] TylerWqkhzftHPQVOJVLJB3374-25-95 11:05:00 Test Item Value Reference Range Interpretation Comments HIV. (test code = Negative *NA*(07/29/16 HIV.) 5:05 AM) [facility] TylerVnbewuyEXMOPCFMVE8337-21-97 11:05:00 Test Item Value Reference Range Interpretation Comments C3 Complement (test code = C3 92 88-201 Complement) [facility]2017-02-07 15:50:00 Test Item Value Reference Range Interpretation Comments eGFR (test code = eGFR) 25 [facility]2017-02-07 15:50:00 Test Item Value Reference Range Interpretation Comments BUN (test code = BUN) 55 7-22 [facility]2017-02-07 15:50:00 Test Item Value Reference Range Interpretation Comments CO2 (test code = CO2) 23 24-32 [facility]2017-02-07 15:50:00 Test Item Value Reference Range Interpretation Comments Chloride Lvl (test code = Chloride Lvl) 109 95-109 [facility]2017-02-07 15:50:00 Test Item Value Reference Range Interpretation Comments Glucose Lvl (test code = Glucose Lvl) 101 70-99 [facility]2017-02-07 15:50:00 Test Item Value Reference Range Interpretation Comments Potassium Lvl (test code = Potassium 4.0 3.5-5.1 Lvl) [facility]2017-02-07 15:50:00 Test Item Value Reference Range Interpretation Comments Sodium Lvl (test code = Sodium Lvl) 141 135-145 [facility]2017-02-07 15:50:00 Test Item Value Reference Range Interpretation Comments AGAP (test code = AGAP) 13.0 10.0-20.0 [facility]2017-02-07 15:50:00 Test Item Value Reference Range Interpretation Comments Calcium Lvl (test code = Calcium Lvl) 7.7 8.5-10.5 [facility]2017-02-07 15:50:00 Test Item Value Reference Range Interpretation Comments Creatinine Lvl (test code = Creatinine 2.49 0.50-1.40 Lvl) [facility] CenterGtmbssbKPTZRMIOYG5730-36-87 15:50:00 Test Item Value Reference Range Interpretation Comments PT (test code = PT) 14.8 s 12.0-14.7 [facility] CenterYkthblfKKRAIJNCCN9189-33-34 15:50:00 Test Item Value Reference Range Interpretation Comments PTT (test code = PTT) 40.8 s 22.9-35.8 [facility] CenterZtdurttXIEXTZPKQY3505-62-03 15:50:00 Test Item Value Reference Range Interpretation Comments INR (test code = INR) 1.14 0.85-1.17 [facility]JqwjlveFRWRPJYKQJ5328-28-38 15:50:00 Test Item Value Reference Range Interpretation Comments C3 Complement (test code = C3 94 88-201 Complement) [facility] CenterMrgxkssSMCIMTLVYF5733-25-53 10:35:00 Test Item Value Reference Range Interpretation Comments Lymphocytes # (test code = Lymphocytes 1.7 1.0-5.5 #) [facility] CenterOrofygnAZKMROFQUS9837-21-45 10:35:00 Test Item Value Reference Range Interpretation Comments Segs-Bands # (test code = Segs-Bands #) 2.7 1.5-8.1 [facility] CenterLlkxosyFOQBWYTKCT9292-20-58 10:35:00 Test Item Value Reference Range Interpretation Comments Eosinophils # (test code 0.1 See_Comment [A utomated message] The = Eosinophils #) system whic h generated this result tra nsmitted reference range : <=0.5. The reference r leo was not used to int erpret this result as normal/abnormal . [facility] CenterYlyubxaOBLJDBKWCW8815-78-92 10:35:00 Test Item Value Reference Range Interpretation Comments Monocytes # (test code 0.7 See_Comment [Aut omated message] The = Monocytes #) system which generated this result tra nsmitted reference range : <=0.8. The reference r leo was not used to int erpret this result as normal/abnormal . [facility] CenterSjpfwsaSNJIASWXNN3601-32-71 10:35:00 Test Item Value Reference Range Interpretation Comments Segs (test code = Segs) 51.3 45.0-75.0 [facility] CenterUrwyvtmFWQQGRQILE2773-08-18 10:35:00 Test Item Value Reference Range Interpretation Comments Lymphocytes (test code = Lymphocytes) 31.6 20.0-40.0 [facility] CenterJwjjnsdLKSYILOVRA4702-84-79 10:35:00 Test Item Value Reference Range Interpretation Comments Monocytes (test code = Monocytes) 14.1 2.0-12.0 [facility] CenterLtwipqiNAKHYOAZUD6887-39-12 10:35:00 Test Item Value Reference Range Interpretation Comments Eosinophils (test code = 2.6 See_Comment [A utomated message] The Eosinophils) system which ge nerated this result tra nsmitted reference range : <=4.0. The reference r leo was not used to int erpret this result as normal/abnormal . [facility] CenterEchsnqjLAXOWRPIPZ4826-89-03 10:35:00 Test Item Value Reference Range Interpretation Comments Basophils (test code = 0.4 See_Comment [Aut omated message] The Basophils) system which ge nerated this result tra nsmitted reference range : <=1.0. The reference r leo was not used to int erpret this result as normal/abnormal . [facility] CenterQsqcitlSAVOEFCHLT5954-90-92 10:35:00 Test Item Value Reference Range Interpretation Comments PB Smear Path Peripheral blood smear shows (test code = PB hypochromic normocytic Smear Path) anemia with anisopoikilocytsosis, no increase in schistocytes, slight polychromasia, a few estella cells, moderate thrombocytopenia. Impression: (1) no evidence of microangiopathic hemolysis, (2) RBC morphology is suggestive of anemia of chronic disease or iron deficiency anemia, and renal disease. CPT: 69060 [facility] CenterEdpukdoKHGWYTUGJK7753-03-21 10:35:00 Test Item Value Reference Range Interpretation Comments Hct (test code = Hct) 29.3 36.0-48.0 [facility] CenterTjsfgqyYFVRPZCBMO3436-41-57 10:35:00 Test Item Value Reference Range Interpretation Comments Hgb (test code = Hgb) 9.2 12.0-16.0 [facility] CenterZogfmgiBPIXOPFEQU5522-67-17 10:35:00 Test Item Value Reference Range Interpretation Comments RBC (test code = RBC) 3.54 4.20-5.40 [facility] CenterEdnelszPGGEDYZJWU6739-53-05 10:35:00 Test Item Value Reference Range Interpretation Comments WBC (test code = WBC) 5.3 3.7-10.4 [facility] CenterViifqosQJWFZGBVDU4675-80-12 10:35:00 Test Item Value Reference Range Interpretation Comments Platelet (test code = Platelet) 87 133-450 [facility] CenterPvjubheDPZPKSMXLR8670-53-38 10:35:00 Test Item Value Reference Range Interpretation Comments MCHC (test code = MCHC) 31.4 32.0-36.0 [facility] CenterFbutsogTHFRABFJPF6297-82-82 10:35:00 Test Item Value Reference Range Interpretation Comments RDW (test code = RDW) 17.9 11.5-14.5 [facility] CenterHdevfysEAEXKQCBBY7433-39-41 10:35:00 Test Item Value Reference Range Interpretation Comments MPV (test code = MPV) 10.9 7.4-10.4 [facility] CenterAixpupvPULYQAKXNV2600-44-80 10:35:00 Test Item Value Reference Range Interpretation Comments MCH (test code = MCH) 26.0 pg 27.0-31.0 [facility] CenterUjlihalLEMHKXKQTO5924-26-75 10:35:00 Test Item Value Reference Range Interpretation Comments MCV (test code = MCV) 82.8 80.0-98.0 [facility]MnuzqesMJIUMJSMWJ1638-67-94 10:35:00 Test Item Value Reference Range Interpretation Comments HIV. (test code = Negative *NA*(07/28/16 HIV.) 4:35 AM) [facility] [id number] 10:22:00 Test Item Value Reference Range Interpretation Comments Total CK (test code = Total CK) 190 12-191 [facility]2017-02-06 10:22:00 Test Item Value Reference Range Interpretation Comments Calcium Lvl (test code = Calcium Lvl) 7.8 8.5-10.5 [facility]2017-02-06 10:22:00 Test Item Value Reference Range Interpretation Comments CO2 (test code = CO2) 21 24-32 [facility]2017-02-06 10:22:00 Test Item Value Reference Range Interpretation Comments Sodium Lvl (test code = Sodium Lvl) 140 135-145 [facility]2017-02-06 10:22:00 Test Item Value Reference Range Interpretation Comments Potassium Lvl (test code = Potassium 3.8 3.5-5.1 Lvl) [facility]2017-02-06 10:22:00 Test Item Value Reference Range Interpretation Comments Chloride Lvl (test code = Chloride Lvl) 106 95-109 [facility]2017-02-06 10:22:00 Test Item Value Reference Range Interpretation Comments Bili Total (test code = Bili Total) 0.4 0.2-1.3 [facility]2017-02-06 10:22:00 Test Item Value Reference Range Interpretation Comments Alk Phos (test code = Alk Phos) 74 39-136 [facility]2017-02-06 10:22:00 Test Item Value Reference Range Interpretation Comments eGFR (test code = eGFR) 19 [facility]2017-02-06 10:22:00 Test Item Value Reference Range Interpretation Comments Total Protein (test code = Total 5.2 6.4-8.4 Protein) [facility]2017-02-06 10:22:00 Test Item Value Reference Range Interpretation Comments ALT (test code = ALT) 822 See_Comment [Auto mated message] The system which ge nerated this result transmit rohit reference range : <=65. The reference range was not used to interpr et this result as reji l/abnormal. [facility]2017-02-06 10:22:00 Test Item Value Reference Range Interpretation Comments AST (test code = AST) 205 See_Comment [Auto mated message] The system which ge nerated this result transmit rohit reference range : <=37. The reference range was not used to interpr et this result as reji l/abnormal. [facility]2017-02-06 10:22:00 Test Item Value Reference Range Interpretation Comments Albumin Lvl (test code = Albumin Lvl) 1.8 3.5-5.0 [facility]2017-02-06 10:22:00 Test Item Value Reference Range Interpretation Comments BUN (test code = BUN) 54 7-22 [facility]2017-02-06 10:22:00 Test Item Value Reference Range Interpretation Comments Glucose Lvl (test code = Glucose Lvl) 143 70-99 [facility]2017-02-06 10:22:00 Test Item Value Reference Range Interpretation Comments Creatinine Lvl (test code = Creatinine 3.11 0.50-1.40 Lvl) [facility]2017-02-06 10:22:00 Test Item Value Reference Range Interpretation Comments B/C Ratio (test code = B/C Ratio) 17 6-25 [facility]2017-02-06 10:22:00 Test Item Value Reference Range Interpretation Comments AGAP (test code = AGAP) 16.8 10.0-20.0 [facility]2017-02-06 10:22:00 Test Item Value Reference Range Interpretation Comments Globulin (test code = Globulin) 3.4 2.7-4.2 [facility]2017-02-06 10:22:00 Test Item Value Reference Range Interpretation Comments A/G Ratio (test code = A/G Ratio) 0.5 0.7-1.6 [facility]2017-02-06 10:22:00 Test Item Value Reference Range Interpretation Comments Magnesium Lvl (test code = Magnesium 2.0 1.8-2.4 Lvl) [facility]2017-02-06 10:22:00 Test Item Value Reference Range Interpretation Comments Phosphorus (test code = Phosphorus) 3.7 2.5-4.5 [facility] CenterIfkuawrREGAOBFQJT4142-72-52 10:22:00 Test Item Value Reference Range Interpretation Comments RDW (test code = RDW) 17.7 11.5-14.5 [facility] CenterHkiuqynNLXWIXUZYN8007-51-11 10:22:00 Test Item Value Reference Range Interpretation Comments MCHC (test code = MCHC) 32.9 32.0-36.0 [facility] CenterBnpjytdFHCRDMQSVC5400-70-58 10:22:00 Test Item Value Reference Range Interpretation Comments Hct (test code = Hct) 25.4 36.0-48.0 [facility] CenterFoaokwpYWBBCBQRSF5273-89-89 10:22:00 Test Item Value Reference Range Interpretation Comments MCH (test code = MCH) 26.4 pg 27.0-31.0 [facility] CenterAwrhusbSIABLXGLFQ4070-17-48 10:22:00 Test Item Value Reference Range Interpretation Comments MCV (test code = MCV) 80.3 80.0-98.0 [facility] CenterWswuypdZFYKBKEKOB7741-96-82 10:22:00 Test Item Value Reference Range Interpretation Comments MPV (test code = MPV) 11.4 7.4-10.4 [facility] CenterJheeoutQPJBRJSNEG5435-71-13 10:22:00 Test Item Value Reference Range Interpretation Comments Platelet (test code = Platelet) 74 133-450 [facility] CenterMaoaadfUXAKXBCRJW6272-20-86 10:22:00 Test Item Value Reference Range Interpretation Comments RBC (test code = RBC) 3.16 4.20-5.40 [facility] CenterKywpkgjMQSQPAZJAQ0594-79-32 10:22:00 Test Item Value Reference Range Interpretation Comments WBC (test code = WBC) 5.3 3.7-10.4 [facility] CenterNupflecJPOXDFSHDZ6447-09-89 10:22:00 Test Item Value Reference Range Interpretation Comments Hgb (test code = Hgb) 8.4 12.0-16.0 [facility] CenterDdvwgxjZWEDHALFML6265-80-54 10:22:00 Test Item Value Reference Range Interpretation Comments Monocytes (test code = Monocytes) 14.5 2.0-12.0 [facility] CenterKnkyoafPZPVWDIHUO2097-80-51 10:22:00 Test Item Value Reference Range Interpretation Comments Lymphocytes (test code = Lymphocytes) 29.8 20.0-40.0 [facility] CenterAhmtkmbGTNGISBXTL2171-77-46 10:22:00 Test Item Value Reference Range Interpretation Comments Eosinophils # (test code 0.1 See_Comment [A utomated message] The = Eosinophils #) system [facility] h generated this result tra nsmitted reference range : <=0.5. The reference r leo was not used to int erpret this result as normal/abnormal . [facility] CenterQuqjaxfAMKVFWXPYQ0275-71-31 10:22:00 Test Item Value Reference Range Interpretation Comments Monocytes # (test code 0.8 See_Comment [Aut omated message] The = Monocytes #) system which generated this result tra nsmitted reference range : <=0.8. The reference r leo was not used to int erpret this result as normal/abnormal . [facility] CenterGvhsowiEIRSHUKSBG6133-69-83 10:22:00 Test Item Value Reference Range Interpretation Comments Segs-Bands # (test code = Segs-Bands #) 2.9 1.5-8.1 [facility] CenterLzrfdytXJXYZXWZNC2732-44-50 10:22:00 Test Item Value Reference Range Interpretation Comments Lymphocytes # (test code = Lymphocytes 1.6 1.0-5.5 #) [facility] CenterVywxpncLHBPUZGQSJ7442-31-96 10:22:00 Test Item Value Reference Range Interpretation Comments Basophils (test code = 0.4 See_Comment [Aut omated message] The Basophils) system which ge nerated this result tra nsmitted reference range : <=1.0. The reference r leo was not used to int erpret this result as normal/abnormal . [facility] CenterEcodokmQLZFIZLFYJ2539-17-59 10:22:00 Test Item Value Reference Range Interpretation Comments Eosinophils (test code = 1.2 See_Comment [A utomated message] The Eosinophils) system which ge nerated this result tra nsmitted reference range : <=4.0. The reference r leo was not used to int erpret this result as normal/abnormal . [facility]lswwkwNNTAPXUWUU9307-87-95 10:22:00 Test Item Value Reference Range Interpretation Comments Segs (test code = Segs) 54.1 45.0-75.0 [facility] CenterSPECIAL DXPZQMUTU0926-73-89 10:22:00 Test Item Value Reference Range Interpretation Comments Hgb A1C (test code = Hgb A1C) 8.9 [facility] CenterCARDIAC [id number] 17:40:00 Test Item Value Reference Range Interpretation Comments Total CK (test code = Total CK) 344 12-191 [facility] CenterIfpiwvwMMYLOFPDEY6688-50-44 17:40:00 Test Item Value Reference Range Interpretation Comments IVETTE (test code = IVETTE) Positive *ABN*(07/26/16 11:40 AM) [facility]woodUwzkvptLVZLTCTEFV9293-27-12 17:40:00 Test Item Value Reference Range Interpretation Comments [employer] Ab (test code = [employer] Ab) no gt [facility] BrownwoodRyoyulwWRAMDHYIET7494-19-09 17:40:00 Test Item Value Reference Range Interpretation Comments Sm Ab (test code = Sm Ab) no gt [facility] BrownwoodUugobkjPXUUVRVHLE5681-66-33 17:40:00 Test Item Value Reference Range Interpretation Comments IVETTE Interp (test code Pattern appears = IVETTE Interp) Nucleolar. [facility] BrownwoodIydygffBDTGNMDQFX3576-94-56 17:40:00 Test Item Value Reference Range Interpretation Comments SS-B (La) Ab (test code = SS-B (La) Ab) no gt [facility] BrownwoodCnlchhhRWHWYRAXSJ3715-62-38 17:40:00 Test Item Value Reference Range Interpretation Comments SS-A (Ro) Ab (test code = SS-A (Ro) Ab) no gt [facility] BrownwoodCuxewvvBPTGNMCHIF7883-51-68 17:40:00 Test Item Value Reference Range Interpretation Comments DNA Ab (DS) (test Negative (07/26/16 11:40 code = DNA Ab (DS)) AM) [facility] BrownwoodNwozqzcXEETHSHXHN9280-70-39 17:40:00 Test Item Value Reference Range Interpretation Comments IVETTE Titer (test code = 1:40 *ABN*(07/26/16 IVETTE Titer) 11:40 AM) [facility]2017-02-05 17:40:00 Test Item Value Reference Range Interpretation Comments U Sodium (test code = U Sodium) 21 [facility] BrownwoodFuytbhoZJJJGSBQNZ7343-97-34 14:00:00 Test Item Value Reference Range Interpretation Comments INR (test code = INR) 1.11 0.85-1.17 [facility] BrownwoodEzbkatxPADAZQMUUF0894-72-10 14:00:00 Test Item Value Reference Range Interpretation Comments PT (test code = PT) 14.5 s 12.0-14.7 [facility] BrownwoodCqoqzmfAHVTUOOANQ2508-99-21 14:00:00 Test Item Value Reference Range Interpretation Comments Hep A IgM (test code Negative *NA*(07/26/16 = Hep A IgM) 8:00 AM) [facility] BrownwoodRxfesuqEGBRRNQGIE5528-39-35 14:00:00 Test Item Value Reference Range Interpretation Comments Hep B Core IgM (test Negative *NA*(07/26/16 code = Hep B Core 8:00 AM) IgM) [facility] CenterOcfdoizSYJNDIJLUE6099-62-71 14:00:00 Test Item Value Reference Range Interpretation Comments Hep C Ab (test code = Negative *NA*(07/26/16 Hep C Ab) 8:00 AM) [facility] CenterCfuukhhGWDGBILUBA1170-25-69 14:00:00 Test Item Value Reference Range Interpretation Comments Hep Bs Ag (test code Negative *NA*(07/26/16 = Hep Bs Ag) 8:00 AM) [facility]2017-02-05 10:42:00 Test Item Value Reference Range Interpretation Comments B/C Ratio (test code = B/C Ratio) 17 6-25 [facility]2017-02-05 10:42:00 Test Item Value Reference Range Interpretation Comments ALT (test code = ALT) 1232 See_Comment [Auto mated message] The system which ge nerated this result transmit rohit reference range : <=65. The reference range was not used to interpr et this result as reji l/abnormal. [facility] CenterLionseek [id number] 10:42:00 Test Item Value Reference Range Interpretation Comments A/G Ratio (test code = A/G Ratio) 0.5 0.7-1.6 [facility]2017-02-05 10:42:00 Test Item Value Reference Range Interpretation Comments Bili Total (test code = Bili Total) 0.3 0.2-1.3 [facility]2017-02-05 10:42:00 Test Item Value Reference Range Interpretation Comments Alk Phos (test code = Alk Phos) 79 39-136 [facility]2017-02-05 10:42:00 Test Item Value Reference Range Interpretation Comments AST (test code = AST) 586 See_Comment [Auto mated message] The system which ge nerated this result transmit rohit reference range : <=37. The reference range was not used to interpr et this result as reji l/abnormal. [facility] CenterLionseek [id number] 10:42:00 Test Item Value Reference Range Interpretation Comments Total Protein (test code = Total 5.5 6.4-8.4 Protein) [facility] [id number] 10:42:00 Test Item Value Reference Range Interpretation Comments Globulin (test code = Globulin) 3.7 2.7-4.2 [facility] [id number] 10:42:00 Test Item Value Reference Range Interpretation Comments Albumin Lvl (test code = Albumin Lvl) 1.8 3.5-5.0 [facility] [id number] 10:42:00 Test Item Value Reference Range Interpretation Comments Magnesium Lvl (test code = Magnesium 2.1 1.8-2.4 Lvl) [facility] CenterTkrrqfbIBCHOYMJAZ2105-45-59 10:42:00 Test Item Value Reference Range Interpretation Comments Acanthocyte (test code = Acanthocyte) Slight [facility] CenterAfpnnciVVOPDVNTIM1479-59-31 10:42:00 Test Item Value Reference Range Interpretation Comments Rouleaux (test code = Present *ABN*(07/26/16 Rouleaux) 4:42 AM) [facility] CenterAagiwfzSXHXBPXBRK5274-59-49 10:42:00 Test Item Value Reference Range Interpretation Comments Anisocyte (test code = 1+ *ABN*(07/26/16 4:42 Anisocyte) AM) [facility] CenterThlzghsDMVHCSPHIT0751-64-24 10:42:00 Test Item Value Reference Range Interpretation Comments Basophils # (test code 0.1 See_Comment [Aut omated message] The = Basophils #) system which generated this result tra nsmitted reference range : <=0.2. The reference r leo was not used to int erpret this result as normal/abnormal . [facility] CenterCcfyxofIGNALOFJFC9784-65-41 10:42:00 Test Item Value Reference Range Interpretation Comments Large Plt (test code Moderate *ABN*(07/26/16 = Large Plt) 4:42 AM) [facility] CenterBuhycvhIGKQUBKUQZ8995-58-06 10:42:00 Test Item Value Reference Range Interpretation Comments C4 Complement (test code = C4 42 16-47 Complement) [facility] AND [id number] 16:34:00 Test Item Value Reference Range Interpretation Comments UA Sq Epi (test code = UA Sq Epi) None Seen [facility] AND [id number] 16:34:00 Test Item Value Reference Range Interpretation Comments UA Waxy Cast (test code = UA Waxy Cast) 1 [facility] AND [id number] 16:34:00 Test Item Value Reference Range Interpretation Comments UA Hyal Cast (test 4 See_Comment [Automat ed message] The code = UA Hyal Cast) system which generated this result transmit rohit reference range : <=2. The reference range was not used to interpr et this result as reji l/abnormal. [facility] AND [id number] 16:34:00 Test Item Value Reference Range Interpretation Comments UA Bacteria (test code = UA Occasional /HPF Bacteria) [facility] AND [id number] 16:34:00 Test Item Value Reference Range Interpretation Comments UA Mucus (test code = UA Mucus) Few /LPF [facility] AND [id number] 16:34:00 Test Item Value Reference Range Interpretation Comments UA Amorph Destiny (test code = Occasional /HPF UA Amorph Destiny) [facility] AND [id number] 16:34:00 Test Item Value Reference Range Interpretation Comments UA Leuk Est (test Negative (07/25/16 10:34 code = UA Leuk Est) AM) [facility] AND [id number] 16:34:00 Test Item Value Reference Range Interpretation Comments UA Nitrite (test code Negative (07/25/16 10:34 = UA Nitrite) AM) [facility] AND [id number] 16:34:00 Test Item Value Reference Range Interpretation Comments UA RBC (test code = 2 See_Comment [Automa rohit message] The UA RBC) system which ge nerated this result transmit rohit reference range : <=2. The reference range was not used to interpr et this result as reji l/abnormal. [facility] AND [id number] 16:34:00 Test Item Value Reference Range Interpretation Comments UA WBC (test code = 6 See_Comment [Automa rohit message] The UA WBC) system which ge nerated this result transmit rohit reference range : <=5. The reference range was not used to interpr et this result as reji l/abnormal. [facility] AND [id number] 16:34:00 Test Item Value Reference Range Interpretation Comments UA Urobilinogen (test code = UA 2.0 0.1-1.0 Urobilinogen) [facility] AND [id number] 16:34:00 Test Item Value Reference Range Interpretation Comments UA Ketones (test code = UA Negative mg/dL Ketones) [facility] AND [id number] 16:34:00 Test Item Value Reference Range Interpretation Comments UA Glucose (test code = UA Glucose) 70 mg/dL [facility] AND [id number] 16:34:00 Test Item Value Reference Range Interpretation Comments UA Blood (test code = Negative (07/25/16 10:34 UA Blood) AM) [facility] AND [id number] 16:34:00 Test Item Value Reference Range Interpretation Comments UA Bili (test code = Negative *NA*(07/25/16 UA Bili) 10:34 AM) [facility] AND [id number] 16:34:00 Test Item Value Reference Range Interpretation Comments UA Protein (test code = UA >=300 mg/dL Protein) [facility] AND [id number] 16:34:00 Test Item Value Reference Range Interpretation Comments UA Spec Grav (test code = UA Spec Grav) 1.012 [facility] AND [id number] 16:34:00 Test Item Value Reference Range Interpretation Comments UA pH (test code = UA pH) 5.5 5.0-8.0 [facility] AND [id number] 16:34:00 Test Item Value Reference Range Interpretation Comments UA Turbidity (test code Slight *ABN*(07/25/16 = UA Turbidity) 10:34 AM) [facility] AND [id number] 16:34:00 Test Item Value Reference Range Interpretation Comments UA Color (test code = Dark Yellow *NA*(07/25/16 UA Color) 10:34 AM) [facility] AND [id number] 16:34:00 Test Item Value Reference Range Interpretation Comments UA Gran Cast (test code = UA Gran Cast) 9 [facility] [id number] 16:34:00 Test Item Value Reference Range Interpretation Comments U Sodium (test code = U Sodium) 30 [facility] [id number] 16:34:00 Test Item Value Reference Range Interpretation Comments U Prot/Creat (test code = U Prot/Creat) 3.1 [facility] [id number] 16:34:00 Test Item Value Reference Range Interpretation Comments U Protein (test code = U Protein) 420.9 [facility]woodannURINE [id number] 16:34:00 Test Item Value Reference Range Interpretation Comments U Creatinine (test code = U 136.00 Creatinine) [facility]CHE[facility] [id number] 08:55:00 Test Item Value Reference Range Interpretation Comments Magnesium Lvl (test code = Magnesium 2.0 1.8-2.4 Lvl) [facility]woodannCHEM [id number] 08:55:00 Test Item Value Reference Range Interpretation Comments Phosphorus (test code = Phosphorus) 5.2 2.5-4.5 [facility]woodannCARDIAC [id number] 17:29:00 Test Item Value Reference Range Interpretation Comments Troponin-I (test code 0.28 See_Comment [Auto mated message] The = Troponin-I) system which g enerated this result transmit rohit reference range : <=0.40. The reference r leo was not used to interpr et this result as reji l/abnormal. [facility] BrownwoodiPixCelAC [id number] 17:29:00 Test Item Value Reference Range Interpretation Comments Total CK (test code = Total CK) 2616 12-191 [facility] BrownwoodiPixCelAC [id number] 17:29:00 Test Item Value Reference Range Interpretation Comments Troponin-T (test code 0.144 See_Comment [Auto mated message] The = Troponin-T) system which g enerated this result transmit rohit reference range : <=0.100. The reference r leo was not used to interpr et this result as reji l/abnormal. [facility] BrownwoodiPixCelAC [id number] 17:29:00 Test Item Value Reference Range Interpretation Comments CK MB Index (test 0.2 See_Comment [Automate d message] The code = CK MB Index) system w [facility] generated this result transmit rohit reference range : <=2.5. The reference range was not used to interpr et this result as reji l/abnormal. [facility] [employer] [id number] 17:29:00 Test Item Value Reference Range Interpretation Comments CK MB (test code = CK MB) 6.3 0.5-3.6 [facility] BrownwoodiPixCelAC [id number] 11:20:00 Test Item Value Reference Range Interpretation Comments Troponin-I (test code 0.38 See_Comment [Auto mated message] The = Troponin-I) system which g enerated this result transmit rohit reference range : <=0.40. The reference r leo was not used to interpr et this result as reji l/abnormal. [facility] [employer]2017-02-03 11:20:00 Test Item Value Reference Range Interpretation Comments Troponin-T (test code 0.173 See_Comment [Auto mated message] The = Troponin-T) system which g enerated this result transmit rohit reference range : <=0.100. The reference r leo was not used to interpr et this result as reji l/abnormal. [facility] [employer]2017-02-03 11:20:00 Test Item Value Reference Range Interpretation Comments CK MB Index (test 0.2 See_Comment [Automate d message] The code = CK MB Index) system w [facility] generated this result transmit rohit reference range : <=2.5. The reference range was not used to interpr et this result as reji l/abnormal. [facility] [employer]2017-02-03 11:20:00 Test Item Value Reference Range Interpretation Comments CK MB (test code = CK MB) 5.6 0.5-3.6 [facility] [employer]2017-02-03 11:20:00 Test Item Value Reference Range Interpretation Comments Phosphorus (test code = Phosphorus) 5.5 2.5-4.5 [facility] [employer]2017-02-03 06:18:00 Test Item Value Reference Range Interpretation Comments BNP (test code = BNP) 701 [facility] [employer]2017-02-03 04:59:27 Test Item Value Reference Range Interpretation Comments Troponin-I (test code 0.57 See_Comment [Auto mated message] The = Troponin-I) system which g enerated this result transmit rohit reference range : <=0.40. The reference r leo was not used to interpr et this result as reji l/abnormal. [employer]2016-12-26 10:22:00 Test Item Value Reference Range Interpretation Comments BNP (test code = BNP) [address] [facility] [employer]2016-12-26 10:22:00 Test Item Value Reference Range Interpretation Comments Magnesium Lvl (test code = Magnesium 2.1 1.8-2.4 Lvl) [facility]2016-12-26 10:22:00 Test Item Value Reference Range Interpretation Comments Glucose Lvl (test code = Glucose Lvl) 117 70-99 [facility]2016-12-26 10:22:00 Test Item Value Reference Range Interpretation Comments BUN (test code = BUN) 41 7-22 [facility]2016-12-26 10:22:00 Test Item Value Reference Range Interpretation Comments Creatinine Lvl (test code = Creatinine 2.00 0.50-1.40 Lvl) [facility]2016-12-26 10:22:00 Test Item Value Reference Range Interpretation Comments Calcium Lvl (test code = Calcium Lvl) 9.0 8.5-10.5 [facility]2016-12-26 10:22:00 Test Item Value Reference Range Interpretation Comments Chloride Lvl (test code = Chloride Lvl) 102 95-109 [facility]2016-12-26 10:22:00 Test Item Value Reference Range Interpretation Comments CO2 (test code = CO2) 33 24-32 [facility]2016-12-26 10:22:00 Test Item Value Reference Range Interpretation Comments Sodium Lvl (test code = Sodium Lvl) 144 135-145 [facility]2016-12-26 10:22:00 Test Item Value Reference Range Interpretation Comments Potassium Lvl (test code = Potassium 4.0 3.5-5.1 Lvl) [facility]2016-12-26 10:22:00 Test Item Value Reference Range Interpretation Comments eGFR (test code = eGFR) 32 [facility]2016-12-26 10:22:00 Test Item Value Reference Range Interpretation Comments AGAP (test code = AGAP) 13.0 10.0-20.0 [facility]2016-12-26 10:22:00 Test Item Value Reference Range Interpretation Comments Phosphorus (test code = Phosphorus) 4.6 2.5-4.5 [facility]QylhoiuMCLUIYCHZK7180-45-11 10:22:00 Test Item Value Reference Range Interpretation Comments RBC (test code = RBC) 3.68 4.20-5.40 [facility] CenterRnwjdbrOETLKVVGPX4027-07-88 10:22:00 Test Item Value Reference Range Interpretation Comments Hgb (test code = Hgb) 9.9 12.0-16.0 [facility] CenterQlvwheaKBUVEMFOZJ6232-10-96 10:22:00 Test Item Value Reference Range Interpretation Comments MCH (test code = MCH) 26.8 pg 27.0-31.0 [facility] CenterDzoerebSGTNAPONUU7606-57-20 10:22:00 Test Item Value Reference Range Interpretation Comments MCHC (test code = MCHC) 34.2 32.0-36.0 [facility] CenterNrsqzsgNHFOKBHBUS2611-70-55 10:22:00 Test Item Value Reference Range Interpretation Comments MCV (test code = MCV) 78.3 80.0-98.0 [facility] CenterHyyefwbWKQSNHRXKD2405-79-04 10:22:00 Test Item Value Reference Range Interpretation Comments Hct (test code = Hct) 28.8 36.0-48.0 [facility] CenterRhwkpisFJXKXXCXDR6775-92-29 10:22:00 Test Item Value Reference Range Interpretation Comments Platelet (test code = Platelet) 191 133-450 [facility] CenterZlvuyblNLHTDOBUHE5500-59-01 10:22:00 Test Item Value Reference Range Interpretation Comments MPV (test code = MPV) 9.5 7.4-10.4 [facility] CenterMpvdupdRZIGNHJYSP0361-66-72 10:22:00 Test Item Value Reference Range Interpretation Comments RDW (test code = RDW) 15.3 11.5-14.5 [facility] CenterJgnwijrLRNZXBGCYD6635-09-73 10:22:00 Test Item Value Reference Range Interpretation Comments WBC (test code = WBC) 5.6 3.7-10.4 [facility] CenterZwebyunABOMTLOKLI1782-48-09 10:22:00 Test Item Value Reference Range Interpretation Comments Eosinophils # (test code 0.5 See_Comment [A utomated message] The = Eosinophils #) system whic h generated this result tra nsmitted reference range : <=0.5. The reference r leo was not used to int erpret this result as normal/abnormal . [facility] CenterBpplgjlWZPRUHYHSR4346-61-15 10:22:00 Test Item Value Reference Range Interpretation Comments Microcyte (test code = 1+ *ABN*(06/15/16 Micro[employer]) 4:22 AM) [facility] CenterEnyytcqEKICSJPGTA9560-67-30 10:22:00 Test Item Value Reference Range Interpretation Comments Basophils # (test code 0.1 See_Comment [Aut omated message] The = Basophils #) system which generated this result tra nsmitted reference range : <=0.2. The reference r leo was not used to int erpret this result as normal/abnormal . [facility] CenterToqhmblIDOAVLAFOE9289-78-55 10:22:00 Test Item Value Reference Range Interpretation Comments Lymphocytes (test code = Lymphocytes) 33.5 20.0-40.0 [facility] CenterQvrwwupSFGPFKNDDE3871-55-03 10:22:00 Test Item Value Reference Range Interpretation Comments Segs (test code = Segs) 47.6 45.0-75.0 [facility] CenterNhcjfynSPZRORGFUN9910-06-95 10:22:00 Test Item Value Reference Range Interpretation Comments Monocytes (test code = Monocytes) 8.4 2.0-12.0 [facility] CenterThcwkspTFKHNCLKPF2957-58-23 10:22:00 Test Item Value Reference Range Interpretation Comments Eosinophils (test code = 9.4 See_Comment [A utomated message] The Eosinophils) system which ge nerated this result tra nsmitted reference range : <=4.0. The reference r leo was not used to int erpret this result as normal/abnormal . [facility] CenterOxyunhbKNNHBSJEGO5282-56-99 10:22:00 Test Item Value Reference Range Interpretation Comments Segs-Bands # (test code = Segs-Bands #) 2.6 1.5-8.1 [facility] CenterNdhfzbaQXPULDQAIR2487-20-75 10:22:00 Test Item Value Reference Range Interpretation Comments Lymphocytes # (test code = Lymphocytes 1.9 1.0-5.5 #) [facility] CenterPpxodhaJZXPMZAWOG9580-92-42 10:22:00 Test Item Value Reference Range Interpretation Comments Basophils (test code = 1.1 See_Comment [Aut omated message] The Basophils) system which ge nerated this result tra nsmitted reference range : <=1.0. The reference r leo was not used to int erpret this result as normal/abnormal . [facility] CenterYpwrpbhWOZDQXLBIP1170-47-77 10:22:00 Test Item Value Reference Range Interpretation Comments Monocytes # (test code 0.5 See_Comment [Aut omated message] The = Monocytes #) system which generated this result tra nsmitted reference range : <=0.8. The reference r leo was not used to int erpret this result as normal/abnormal . [facility]2016-12-25 11:03:00 Test Item Value Reference Range Interpretation Comments Phosphorus (test code = Phosphorus) 4.8 2.5-4.5 [facility]2016-12-25 11:03:00 Test Item Value Reference Range Interpretation Comments Magnesium Lvl (test code = Magnesium 2.0 1.8-2.4 Lvl) [facility]2016-12-25 11:03:00 Test Item Value Reference Range Interpretation Comments eGFR (test code = eGFR) 32 [facility]2016-12-25 11:03:00 Test Item Value Reference Range Interpretation Comments Chloride Lvl (test code = Chloride Lvl) 101 95-109 [facility]2016-12-25 11:03:00 Test Item Value Reference Range Interpretation Comments Potassium Lvl (test code = Potassium 4.4 3.5-5.1 Lvl) [facility]2016-12-25 11:03:00 Test Item Value Reference Range Interpretation Comments BUN (test code = BUN) 37 7-22 [facility]2016-12-25 11:03:00 Test Item Value Reference Range Interpretation Comments Glucose Lvl (test code = Glucose Lvl) 119 70-99 [facility]2016-12-25 11:03:00 Test Item Value Reference Range Interpretation Comments Creatinine Lvl (test code = Creatinine 2.00 0.50-1.40 Lvl) [facility]2016-12-25 11:03:00 Test Item Value Reference Range Interpretation Comments Sodium Lvl (test code = Sodium Lvl) 142 135-145 [facility]2016-12-25 11:03:00 Test Item Value Reference Range Interpretation Comments Calcium Lvl (test code = Calcium Lvl) 8.7 8.5-10.5 [facility]2016-12-25 11:03:00 Test Item Value Reference Range Interpretation Comments CO2 (test code = CO2) 32 24-32 [facility]2016-12-25 11:03:00 Test Item Value Reference Range Interpretation Comments AGAP (test code = AGAP) 13.4 10.0-20.0 [facility] CenterAozhkuuOKRKYWRHEX5438-51-40 11:03:00 Test Item Value Reference Range Interpretation Comments Eosinophils (test code = 10.3 See_Comment [A utomated message] The Eosinophils) system which ge nerated this result tra nsmitted reference range : <=4.0. The reference r leo was not used to int erpret this result as normal/abnormal . [facility] CenterTztutxhOODZOVAARS3652-48-83 11:03:00 Test Item Value Reference Range Interpretation Comments Basophils # (test code 0.1 See_Comment [Aut omated message] The = Basophils #) system which generated this result tra nsmitted reference range : <=0.2. The reference r leo was not used to int erpret this result as normal/abnormal . [facility] CenterUftcrsqCAYWEZLVZM1093-85-17 11:03:00 Test Item Value Reference Range Interpretation Comments Eosinophils # (test code 0.5 See_Comment [A utomated message] The = Eosinophils #) system whic h generated this result tra nsmitted reference range : <=0.5. The reference r leo was not used to int erpret this result as normal/abnormal . [facility] CenterXbsmqotYPUPCPKNDH1833-89-50 11:03:00 Test Item Value Reference Range Interpretation Comments Monocytes # (test code 0.5 See_Comment [Aut omated message] The = Monocytes #) system which generated this result tra nsmitted reference range : <=0.8. The reference r leo was not used to int erpret this result as normal/abnormal . [facility] CenterSvzyawdQKHWNJVLPY0597-77-54 11:03:00 Test Item Value Reference Range Interpretation Comments Segs-Bands # (test code = Segs-Bands #) 2.1 1.5-8.1 [facility] CenterRbgpfgdQEVDCKKGDS8433-71-00 11:03:00 Test Item Value Reference Range Interpretation Comments Basophils (test code = 1.2 See_Comment [Aut omated message] The Basophils) system which ge nerated this result tra nsmitted reference range : <=1.0. The reference r leo was not used to int erpret this result as normal/abnormal . [facility] CenterDtsshkyAVLVENICOK1598-69-01 11:03:00 Test Item Value Reference Range Interpretation Comments Lymphocytes # (test code = Lymphocytes 1.9 1.0-5.5 #) [facility] CenterOfjohkqFRPQOHDMWE5047-16-13 11:03:00 Test Item Value Reference Range Interpretation Comments Segs (test code = Segs) 42.5 45.0-75.0 [facility] CenterRjnbyzaIUEOEWTNTC3257-17-80 11:03:00 Test Item Value Reference Range Interpretation Comments Lymphocytes (test code = Lymphocytes) 37.0 20.0-40.0 [facility] CenterXtqrdbmLVIWDHXVVH6362-39-30 11:03:00 Test Item Value Reference Range Interpretation Comments Monocytes (test code = Monocytes) 9.0 2.0-12.0 [facility] CenterMjsbsorCNHNCTJGIM0481-65-80 11:03:00 Test Item Value Reference Range Interpretation Comments MPV (test code = MPV) 9.8 7.4-10.4 [facility] CenterKdkbvehSMKMCBGRRY8534-99-48 11:03:00 Test Item Value Reference Range Interpretation Comments WBC (test code = WBC) 5.0 3.7-10.4 [facility] CenterLbenygaTBVBZNPWSW1677-91-07 11:03:00 Test Item Value Reference Range Interpretation Comments RBC (test code = RBC) 3.57 4.20-5.40 [facility] CenterCfmfrmxYIJGQYQXNT3683-30-29 11:03:00 Test Item Value Reference Range Interpretation Comments Hgb (test code = Hgb) 9.4 12.0-16.0 [facility] CenterPmcctkzBBZPEDSNDJ4380-02-59 11:03:00 Test Item Value Reference Range Interpretation Comments Hct (test code = Hct) 28.5 36.0-48.0 [facility] CenterOtifbjaGPTZOSXBEB7322-66-45 11:03:00 Test Item Value Reference Range Interpretation Comments Platelet (test code = Platelet) 183 133-450 [facility] CenterGujkeewIBAFGPXQPX9787-05-78 11:03:00 Test Item Value Reference Range Interpretation Comments MCV (test code = MCV) 79.9 80.0-98.0 [facility] CenterVjkfrpmYILAQKUASJ6714-06-27 11:03:00 Test Item Value Reference Range Interpretation Comments MCH (test code = MCH) 26.3 pg 27.0-31.0 [facility] CenterPzcuvqwUHVVVGGOEK1761-07-62 11:03:00 Test Item Value Reference Range Interpretation Comments MCHC (test code = MCHC) 33.0 32.0-36.0 [facility] CenterEppryuaJDAKJIQVTQ8984-76-81 11:03:00 Test Item Value Reference Range Interpretation Comments RDW (test code = RDW) 15.9 11.5-14.5 [facility]2016-12-24 10:26:00 Test Item Value Reference Range Interpretation Comments U Prot/Creat (test code = U Prot/Creat) 6.9 [facility]2016-12-24 10:26:00 Test Item Value Reference Range Interpretation Comments U Creatinine (test code = U Creatinine) 19.30 [facility]2016-12-24 10:26:00 Test Item Value Reference Range Interpretation Comments U Protein (test code = U Protein) 133.1 [facility] CenterQjjnpkoVZJICWPALY3894-56-09 09:20:00 Test Item Value Reference Range Interpretation Comments MPV (test code = MPV) 9.7 7.4-10.4 [facility] CenterTpplgppXBJUAMQGJW3169-61-64 09:20:00 Test Item Value Reference Range Interpretation Comments Platelet (test code = Platelet) 184 133-450 [facility] CenterBjqytroBKGHSJPHPF8824-50-35 09:20:00 Test Item Value Reference Range Interpretation Comments RDW (test code = RDW) 15.9 11.5-14.5 [facility] CenterWtiootjZUGFZKXZTL3417-19-29 09:20:00 Test Item Value Reference Range Interpretation Comments MCV (test code = MCV) 79.3 80.0-98.0 [facility] CenterLlryoqeFMBRDWJQYW1963-41-55 09:20:00 Test Item Value Reference Range Interpretation Comments MCHC (test code = MCHC) 33.0 32.0-36.0 [facility] CenterWupyhipVRFABMAFEW6887-76-72 09:20:00 Test Item Value Reference Range Interpretation Comments MCH (test code = MCH) 26.2 pg 27.0-31.0 [facility] CenterUpuyhptBHJASNWTYI8204-95-84 09:20:00 Test Item Value Reference Range Interpretation Comments Hct (test code = Hct) 29.4 36.0-48.0 [facility] CenterWlrigzcDZSBKVYDLX5961-71-67 09:20:00 Test Item Value Reference Range Interpretation Comments Hgb (test code = Hgb) 9.7 12.0-16.0 [facility] CenterVageaejWLZAHIPWXI4863-58-81 09:20:00 Test Item Value Reference Range Interpretation Comments RBC (test code = RBC) 3.70 4.20-5.40 [facility] CenterAwxalizFRSWDDKNJL3443-54-69 09:20:00 Test Item Value Reference Range Interpretation Comments WBC (test code = WBC) 5.7 3.7-10.4 [facility] CenterUcoslvgEVGGAAWBSZ0618-17-13 09:20:00 Test Item Value Reference Range Interpretation Comments Basophils # (test code 0.1 See_Comment [Aut omated message] The = Basophils #) system which generated this result tra nsmitted reference range : <=0.2. The reference r leo was not used to int erpret this result as normal/abnormal . [facility] CenterRqjwupnEKSAOFHHKL0363-39-81 09:20:00 Test Item Value Reference Range Interpretation Comments Lymphocytes # (test code = Lymphocytes 2.2 1.0-5.5 #) [facility] CenterRhnmhsuLPARMQXANI1161-42-90 09:20:00 Test Item Value Reference Range Interpretation Comments Eosinophils # (test code 0.5 See_Comment [A utomated message] The = Eosinophils #) system wh h generated this result tra nsmitted reference range : <=0.5. The reference r leo was not used to int erpret this result as normal/abnormal . [facility] CenterSnnoyscAEEAKWWKIB8910-46-02 09:20:00 Test Item Value Reference Range Interpretation Comments Monocytes # (test code 0.5 See_Comment [Aut omated message] The = Monocytes #) system which generated this result tra nsmitted reference range : <=0.8. The reference r leo was not used to int erpret this result as normal/abnormal . [facility] CenterDnpwoeiVUNRULIUQC1615-17-84 09:20:00 Test Item Value Reference Range Interpretation Comments Basophils (test code = 1.1 See_Comment [Aut omated message] The Basophils) system which ge nerated this result tra nsmitted reference range : <=1.0. The reference r leo was not used to int erpret this result as normal/abnormal . [facility] CenterMpohiyhOITQCWSXVQ6627-30-84 09:20:00 Test Item Value Reference Range Interpretation Comments Segs-Bands # (test code = Segs-Bands #) 2.3 1.5-8.1 [facility] CenterDftaioxPTKEYJICVA2538-04-81 09:20:00 Test Item Value Reference Range Interpretation Comments Eosinophils (test code = 9.5 See_Comment [A utomated message] The Eosinophils) system which ge nerated this result tra nsmitted reference range : <=4.0. The reference r leo was not used to int erpret this result as normal/abnormal . [facility] CenterRdclveuLEOOHVWPXV8593-30-12 09:20:00 Test Item Value Reference Range Interpretation Comments Monocytes (test code = Monocytes) 9.0 2.0-12.0 [facility] CenterDutmwmjVXZHHKJKUK5374-53-36 09:20:00 Test Item Value Reference Range Interpretation Comments Lymphocytes (test code = Lymphocytes) 38.9 20.0-40.0 [facility] CenterKeuqcxlJTWEOQDRWY4216-86-22 09:20:00 Test Item Value Reference Range Interpretation Comments Segs (test code = Segs) 41.5 45.0-75.0 [facility]2016-12-24 06:34:00 Test Item Value Reference Range Interpretation Comments Magnesium Lvl (test code = Magnesium 1.7 1.8-2.4 Lvl) [facility]2016-12-24 06:34:00 Test Item Value Reference Range Interpretation Comments Phosphorus (test code = Phosphorus) 4.2 2.5-4.5 [facility]ahvvcaHVSCUIYZYDVN7352-99-75 06:34:00 Test Item Value Reference Range Interpretation Comments AGAP (test code = AGAP) 14.3 10.0-20.0 [facility]JgxgccxKMMBBWKHSICY5171-14-15 06:34:00 Test Item Value Reference Range Interpretation Comments eGFR (test code = eGFR) 41 [facility]UqteuwpJOGVCNNEVBJI9035-68-55 06:34:00 Test Item Value Reference Range Interpretation Comments Chloride Lvl (test code = Chloride Lvl) 103 95-109 [facility] HospitalBjxyiklAGQNGJGPASZV5716-39-38 06:34:00 Test Item Value Reference Range Interpretation Comments Calcium Lvl (test code = Calcium Lvl) 8.5 8.5-10.5 [facility] HospitalSuqlcblGNFTHOLZTXPT8028-89-08 06:34:00 Test Item Value Reference Range Interpretation Comments CO2 (test code = CO2) 32 24-32 [facility]NwsuwdeGBHZJXBKXYNV4092-86-05 06:34:00 Test Item Value Reference Range Interpretation Comments Glucose Lvl (test code = Glucose Lvl) 173 70-99 [facility] HospitalVficaouKAWJLRJVVENM6952-98-77 06:34:00 Test Item Value Reference Range Interpretation Comments BUN (test code = BUN) 37 7-22 [facility] HospitalAfewsvrHTCIRZSHWQVE2414-89-16 06:34:00 Test Item Value Reference Range Interpretation Comments Creatinine Lvl (test code = Creatinine 1.63 0.50-1.40 Lvl) [facility] HospitalZvwcckwICRCAJNLYYCE7581-90-58 06:34:00 Test Item Value Reference Range Interpretation Comments Potassium Lvl (test code = Potassium 4.3 3.5-5.1 Lvl) [facility] HospitalFkqhvgrLMDWHFDXCXES4771-34-94 06:34:00 Test Item Value Reference Range Interpretation Comments Sodium Lvl (test code = Sodium Lvl) 145 135-145 [facility] CenterCHEM OJGNM4850-81-74 16:21:00 Test Item Value Reference Range Interpretation Comments Ammonia (test code = Ammonia) 48.0 [facility] CenterWzzebzvOOPISGLYTV8311-47-94 14:56:00 Test Item Value Reference Range Interpretation Comments IVETTE Interp (test code Pattern appears = IVETTE Interp) Nucleolar. [facility] TylerPlkblnhZRMEXPAURD9735-63-93 14:56:00 Test Item Value Reference Range Interpretation Comments IVETTE Titer (test code = 1:40 *ABN*(06/11/16 IVETTE Titer) 8:56 AM) [facility] TylerIohocnvDTYNGCWPAA4176-05-57 14:56:00 Test Item Value Reference Range Interpretation Comments Hep Bs Ag (test code Negative *NA*(06/11/16 = Hep Bs Ag) 8:56 AM) [facility] TylerGyrcebiJANHPWQPUI8088-75-35 14:56:00 Test Item Value Reference Range Interpretation Comments Hep C Ab (test code = Negative *NA*(06/11/16 Hep C Ab) 8:56 AM) [facility] CenterPuyzncyCSAIJHHGAM6678-50-77 14:56:00 Test Item Value Reference Range Interpretation Comments Hep B Core IgM (test Negative *NA*(06/11/16 code = Hep B Core 8:56 AM) IgM) [facility] TylerJmkowwgNAPNUJMSAX6514-44-33 14:56:00 Test Item Value Reference Range Interpretation Comments Hep A IgM (test code Negative *NA*(06/11/16 = Hep A IgM) 8:56 AM) [facility] TylerVwvolcyFFOOMIWMBH2437-20-62 14:56:00 Test Item Value Reference Range Interpretation Comments HIV Ag/Ab 4th Gen Negative *NA*(06/11/16 (test code = HIV 8:56 AM) Ag/Ab 4th Gen) [facility] CenterIfngfhuKGLVNUYCAH7632-13-27 14:56:00 Test Item Value Reference Range Interpretation Comments IVETTE (test code = IVETTE) Positive *ABN*(06/11/16 8:56 AM) [facility]2016-12-22 10:42:00 Test Item Value Reference Range Interpretation Comments Bili Total (test code = Bili Total) 0.1 0.2-1.3 [facility]2016-12-22 10:42:00 Test Item Value Reference Range Interpretation Comments Total Protein (test code = Total 5.2 6.4-8.4 Protein) [facility]2016-12-22 10:42:00 Test Item Value Reference Range Interpretation Comments Albumin Lvl (test code = Albumin Lvl) 1.6 3.5-5.0 [facility]2016-12-22 10:42:00 Test Item Value Reference Range Interpretation Comments B/C Ratio (test code = B/C Ratio) 20 6-25 [facility]2016-12-22 10:42:00 Test Item Value Reference Range Interpretation Comments Globulin (test code = Globulin) 3.6 2.7-4.2 [facility]2016-12-22 10:42:00 Test Item Value Reference Range Interpretation Comments A/G Ratio (test code = A/G Ratio) 0.4 0.7-1.6 [facility]2016-12-22 10:42:00 Test Item Value Reference Range Interpretation Comments Alk Phos (test code = Alk Phos) 74 39-136 [facility]2016-12-22 10:42:00 Test Item Value Reference Range Interpretation Comments ALT (test code = ALT) 14 See_Comment [Auto mated message] The system which ge nerated this result transmit rohit reference range : <=65. The reference range was not used to interpr et this result as reji l/abnormal. [facility]2016-12-22 10:42:00 Test Item Value Reference Range Interpretation Comments AST (test code = AST) 13 See_Comment [Auto mated message] The system which ge nerated this result transmit rohit reference range : <=37. The reference range was not used to interpr et this result as reji l/abnormal. [facility] CenterYrluezhLZTXQNFJXR6662-71-00 10:42:00 Test Item Value Reference Range Interpretation Comments INR (test code = INR) 1.06 0.85-1.17 [facility] CenterIzzuaedNYNLONLREX8308-46-27 10:42:00 Test Item Value Reference Range Interpretation Comments PT (test code = PT) 14.0 s 12.0-14.7 [facility]JxeylokBTOWAIHMOP3301-46-71 10:42:00 Test Item Value Reference Range Interpretation Comments PTT (test code = PTT) 36.4 s 22.9-35.8 [facility] MUCRGMREB5243-69-78 10:42:00 Test Item Value Reference Range Interpretation Comments Hgb A1C (test code = Hgb A1C) 10.5 [facility] BrownwoodiPixCelAC PFVQCML7702-45-00 02:08:00 Test Item Value Reference Range Interpretation Comments CK MB Index (test 1.8 See_Comment [Automate d message] The code = CK MB Index) system w [facility] generated this result transmit rohit reference range : <=2.5. The reference range was not used to interpr et this result as reji l/abnormal. [facility] [email or web address] [id number] 02:08:00 Test Item Value Reference Range Interpretation Comments CK MB (test code = CK MB) 2.9 0.5-3.6 [facility] BrownwoodiPixCelAC [id number] 02:08:00 Test Item Value Reference Range Interpretation Comments Troponin-T (test code 0.061 See_Comment [Auto mated message] The = Troponin-T) system which g enerated this result transmit rohit reference range : <=0.100. The reference r leo was not used to interpr et this result as reji l/abnormal. [email or web address] [id number] 02:08:00 Test Item Value Reference Range Interpretation Comments Total CK (test code = Total CK) 159 12-191 [email or web address] [id number] 02:08:00 Test Item Value Reference Range Interpretation Comments Troponin-I (test code no gt See_Comment [Auto mated message] The = Troponin-I) system which g enerated this result transmit rohit reference range : <=0.40. The reference r leo was not used to interpr et this result as reji l/abnormal. [place] [id number] 02:08:00 Test Item Value Reference Range Interpretation Comments Bili Total (test code = Bili Total) 0.2 0.2-1.3 [place] [id number] 02:08:00 Test Item Value Reference Range Interpretation Comments Bili Direct (test code 0.1 See_Comment [Aut omated message] The = Bili Direct) system which generated this result tra nsmitted reference range : <=0.3. The reference r leo was not used to int erpret this result as reji l/abnormal. [place] 587566-12-22 02:08:00 Test Item Value Reference Range Interpretation Comments Bili Indirect (test 0.1 See_Comment [Automa rohit message] The code = Bili Indirect) system which generated this result tra nsmitted reference range : <=1.0. The reference r leo was not used to int erpret this result as normal/abnormal . [place] [id number] 02:08:00 Test Item Value Reference Range Interpretation Comments Total Protein (test code = Total 5.7 6.4-8.4 Protein) [place] 587566-12-22 02:08:00 Test Item Value Reference Range Interpretation Comments A/G Ratio (test code = A/G Ratio) 0.5 0.7-1.6 [place] 587566-12-22 02:08:00 Test Item Value Reference Range Interpretation Comments Albumin Lvl (test code = Albumin Lvl) 1.8 3.5-5.0 [place] 587566-12-22 02:08:00 Test Item Value Reference Range Interpretation Comments Globulin (test code = Globulin) 3.9 2.7-4.2 [place] 587566-12-22 02:08:00 Test Item Value Reference Range Interpretation Comments Alk Phos (test code = Alk Phos) 99 39-136 [place] 587566-12-22 02:08:00 Test Item Value Reference Range Interpretation Comments AST (test code = AST) 21 See_Comment [Auto mated message] The system which ge nerated this result transmit rohit reference range : <=37. The reference range was not used to interpr et this result as reji l/abnormal. [place] 587566-12-22 02:08:00 Test Item Value Reference Range Interpretation Comments ALT (test code = ALT) 17 See_Comment [Auto mated message] The system which ge nerated this result transmit rohit reference range : <=65. The reference range was not used to interpr et this result as reji l/abnormal. [facility] [id number] 02:08:00 Test Item Value Reference Range Interpretation Comments UDS Note (test code = See Note *NA*(06/10/16 UDS Note) 8:08 PM) [facility] [id number] 02:08:00 Test Item Value Reference Range Interpretation Comments U Propoxyph Scr (test Negative *NA*(06/10/16 code = U Propoxyph Scr) 8:08 PM) [facility] [id number] 02:08:00 Test Item Value Reference Range Interpretation Comments U Opiate Scr (test Negative *NA*(06/10/16 code = U Opiate Scr) 8:08 PM) [facility] [id number] 02:08:00 Test Item Value Reference Range Interpretation Comments U Methadone Scr (test Negative *NA*(06/10/16 code = U Methadone Scr) 8:08 PM) [facility] [employer] [id number] 02:08:00 Test Item Value Reference Range Interpretation Comments U Phencyc Scr (test Negative *NA*(06/10/16 code = U Phencyc Scr) 8:08 PM) [facility] [employer] [id number] 02:08:00 Test Item Value Reference Range Interpretation Comments U Cannab Scr (test Negative *NA*(06/10/16 code = U Cannab Scr) 8:08 PM) [facility] [id number] 02:08:00 Test Item Value Reference Range Interpretation Comments U Amph Scr (test code Negative *NA*(06/10/16 = U Amph Scr) 8:08 PM) [facility] [id number] 02:08:00 Test Item Value Reference Range Interpretation Comments U Kelly Scr (test code Negative *NA*(06/10/16 = U Kelly Scr) 8:08 PM) [facility] [id number] 02:08:00 Test Item Value Reference Range Interpretation Comments U Benzodia Scr (test Negative *NA*(06/10/16 code = U Benzodia Scr) 8:08 PM) [facility] [id number] 02:08:00 Test Item Value Reference Range Interpretation Comments U Cocaine Scr (test Negative *NA*(06/10/16 code = U Cocaine Scr) 8:08 PM) [facility] [id number] 02:08:00 Test Item Value Reference Range Interpretation Comments LDL (Calculated) (test code = LDL 75 (Calculated)) [facility] QgaomvwSQVKEK4473-84-52 02:08:00 Test Item Value Reference Range Interpretation Comments VLDL (test code = VLDL) 27 [facility] TxfjyfwNCECAI9821-73-27 02:08:00 Test Item Value Reference Range Interpretation Comments Chol (test code = Chol) 133 [facility] CohderfXDJTNK8856-33-51 02:08:00 Test Item Value Reference Range Interpretation Comments Trig (test code = Trig) 133 [facility] [id number] 02:08:00 Test Item Value Reference Range Interpretation Comments CHD Risk (test code = CHD Risk) 4.29 3.90-5.80 [facility] CkcjkabQJNTEV2374-94-25 02:08:00 Test Item Value Reference Range Interpretation Comments HDL (test code = HDL) 31 [facility] [id number] 02:08:00 Test Item Value Reference Range Interpretation Comments UA Urobilinogen (test code = UA <=1.0 mg/dL 0.1-1.0 Urobilinogen) [facility] [id number] 02:08:00 Test Item Value Reference Range Interpretation Comments UA Ketones (test code = UA Negative mg/dL Ketones) [facility] [id number] 02:08:00 Test Item Value Reference Range Interpretation Comments UA Glucose (test code = UA Glucose) 300 mg/dL [facility] [id number] 02:08:00 Test Item Value Reference Range Interpretation Comments UA Protein (test code = UA >=300 mg/dL Protein) [facility] [id number] 02:08:00 Test Item Value Reference Range Interpretation Comments UA pH (test code = UA pH) 6.0 5.0-8.0 [facility] [id number] 02:08:00 Test Item Value Reference Range Interpretation Comments UA Nitrite (test code Negative (06/10/16 8:08 = UA Nitrite) PM) [facility] AND [id number] 02:08:00 Test Item Value Reference Range Interpretation Comments UA Blood (test code = Trace *ABN*(06/10/16 UA Blood) 8:08 PM) [facility] AND [id number] 02:08:00 Test Item Value Reference Range Interpretation Comments UA Bili (test code = Negative *NA*(06/10/16 UA Bili) 8:08 PM) [facility] AND [id number] 02:08:00 Test Item Value Reference Range Interpretation Comments UA Mucus (test code = UA Mucus) Few /LPF [facility] AND [id number] 02:08:00 Test Item Value Reference Range Interpretation Comments UA RBC (test code = 4 See_Comment [Automa roiht message] The UA RBC) system which ge nerated this result transmit rohit reference range : <=2. The reference range was not used to interpr et this result as reji l/abnormal. [facility] AND [id number] 02:08:00 Test Item Value Reference Range Interpretation Comments UA Sq Epi (test code = UA Sq Epi) Few /LPF [facility] AND [id number] 02:08:00 Test Item Value Reference Range Interpretation Comments UA WBC (test code = 5 See_Comment [Automa rohit message] The UA WBC) system which ge nerated this result transmit rohit reference range : <=5. The reference range was not used to interpr et this result as reji l/abnormal. [facility] AND [id number] 02:08:00 Test Item Value Reference Range Interpretation Comments UA Leuk Est (test code Small *ABN*(06/10/16 = UA Leuk Est) 8:08 PM) [facility] AND [id number] 02:08:00 Test Item Value Reference Range Interpretation Comments UA Hyal Cast (test 1 See_Comment [Automat ed message] The code = UA Hyal Cast) system which generated this result transmit rohti reference range : <=2. The reference range was not used to interpr et this result as reji l/abnormal. [facility] AND [id number] 02:08:00 Test Item Value Reference Range Interpretation Comments UA Spec Grav (test code = UA Spec Grav) 1.009 [facility] AND [id number] 02:08:00 Test Item Value Reference Range Interpretation Comments UA Color (test code = Yellow *NA*(06/10/16 UA Color) 8:08 PM) [facility] AND [id number] 02:08:00 Test Item Value Reference Range Interpretation Comments UA Turbidity (test code = Clear (06/10/16 8:08 UA Turbidity) PM) [facility] [id number] 02:08:00 Test Item Value Reference Range Interpretation Comments U Preg (test code = U Negative (06/10/16 8:08 Preg) PM) [facility] [id number] 02:08:00 Test Item Value Reference Range Interpretation Comments U Protein (test code = U Protein) 375.4 [facility] [id number] 02:08:00 Test Item Value Reference Range Interpretation Comments U Prot/Creat (test code = U Prot/Creat) 5.4 [facility] [id number] 02:08:00 Test Item Value Reference Range Interpretation Comments U Creatinine (test code = U Creatinine) 69.80 [facility] [id number] 16:53:00 Test Item Value Reference Range Interpretation Comments BNP (test code = BNP) 1135 [facility] [id number] 16:53:00 Test Item Value Reference Range Interpretation Comments Troponin-I (test code no gt See_Comment [Auto mated message] The = Troponin-I) system which g enerated this result transmit rohit reference range : <=0.40. The reference r leo was not used to interpr et this result as reji l/abnormal. [facility] CenterCHEM [id number] 13:02:00 Test Item Value Reference Range Interpretation Comments Lactic Acid WB (test code = Lactic Acid 0.9 0.5-2.2 WB) [facility] Cent[id number] 12:29:44 Test Item Value Reference Range Interpretation Comments Valproic Acid Lvl (test code = Valproic 10 50-100 Acid Lvl) [facility] Ce[id number] 11:21:27 Test Item Value Reference Range Interpretation Comments hCG Tot (test code = hCG Tot) 1 [facility]2015-01-06 11:21:00 Test Item Value Reference Range Interpretation Comments Albumin Lvl (test code = Albumin Lvl) 3.2 3.5-5.0 [facility]2015-01-06 11:21:00 Test Item Value Reference Range Interpretation Comments Total Protein (test code = Total 6.6 6.4-8.4 Protein) [facility]2015-01-06 11:21:00 Test Item Value Reference Range Interpretation Comments Bili Total (test code = Bili Total) 0.6 0.2-1.3 [facility]2015-01-06 11:21:00 Test Item Value Reference Range Interpretation Comments Alk Phos (test code = Alk Phos) 59 39-136 [facility]2015-01-06 11:21:00 Test Item Value Reference Range Interpretation Comments AST (test code = AST) 11 See_Comment [Auto mated message] The system which ge nerated this result transmit rohit reference range : <=37. The reference range was not used to interpr et this result as reji l/abnormal. [facility]2015-01-06 11:21:00 Test Item Value Reference Range Interpretation Comments ALT (test code = ALT) 17 See_Comment [Auto mated message] The system which ge nerated this result transmit rohit reference range : <=65. The reference range was not used to interpr et this result as reji l/abnormal. [facility]2015-01-06 11:21:00 Test Item Value Reference Range Interpretation Comments eGFR (test code = eGFR) 99 [facility]2015-01-06 11:21:00 Test Item Value Reference Range Interpretation Comments Glucose Lvl (test code = Glucose Lvl) 314 70-99 [facility]2015-01-06 11:21:00 Test Item Value Reference Range Interpretation Comments Potassium Lvl (test code = Potassium 3.4 3.5-5.1 Lvl) [facility]2015-01-06 11:21:00 Test Item Value Reference Range Interpretation Comments BUN (test code = BUN) 11 7-22 [facility]2015-01-06 11:21:00 Test Item Value Reference Range Interpretation Comments Creatinine Lvl (test code = Creatinine 0.8 0.5-1.4 Lvl) [facility]2015-01-06 11:21:00 Test Item Value Reference Range Interpretation Comments Sodium Lvl (test code = Sodium Lvl) 134 135-145 [facility]2015-01-06 11:21:00 Test Item Value Reference Range Interpretation Comments Chloride Lvl (test code = Chloride Lvl) 94 95-109 [facility]2015-01-06 11:21:00 Test Item Value Reference Range Interpretation Comments Calcium Lvl (test code = Calcium Lvl) 9.1 8.5-10.5 [facility]2015-01-06 11:21:00 Test Item Value Reference Range Interpretation Comments CO2 (test code = CO2) 24 24-32 [facility]2015-01-06 11:21:00 Test Item Value Reference Range Interpretation Comments A/G Ratio (test code = A/G Ratio) 0.9 0.7-1.6 [facility]2015-01-06 11:21:00 Test Item Value Reference Range Interpretation Comments Globulin (test code = Globulin) 3.4 2.0-4.0 [facility]2015-01-06 11:21:00 Test Item Value Reference Range Interpretation Comments B/C Ratio (test code = B/C Ratio) 14 6-25 [facility]2015-01-06 11:21:00 Test Item Value Reference Range Interpretation Comments AGAP (test code = AGAP) 19.4 10.0-20.0 [facility]2015-01-06 11:21:00 Test Item Value Reference Range Interpretation Comments Lipase Lvl (test code = Lipase Lvl) 81 73-393 [facility] [id number] 11:21:00 Test Item Value Reference Range Interpretation Comments Large Plt (test code = Large Plt) Slight [facility] CenterAmjwmqlGTPBKWZSYY5628-55-12 11:21:00 Test Item Value Reference Range Interpretation Comments Basophils # (test code 0.0 See_Comment [Aut omated message] The = Basophils #) system which generated this result tra nsmitted reference range : <=0.2. The reference r leo was not used to int erpret this result as normal/abnormal . [facility] CenterFoaqujjPGEGRCZVIT2296-09-02 11:21:00 Test Item Value Reference Range Interpretation Comments Anisocyte (test code = 1+ *ABN*(06/26/14 5:21 Anisocyte) AM) [facility] CenterLxniqxeQBAJPVPSRI1957-34-40 11:21:00 Test Item Value Reference Range Interpretation Comments Monocytes # (test code 0.6 See_Comment [Aut omated message] The = Monocytes #) system which generated this result tra nsmitted reference range : <=0.8. The reference r leo was not used to int erpret this result as normal/abnormal . [facility] CenterVcrdhmiKXQZFIPBEC1371-46-51 11:21:00 Test Item Value Reference Range Interpretation Comments Eosinophils # (test code 0.1 See_Comment [A utomated message] The = Eosinophils #) system whic h generated this result tra nsmitted reference range : <=0.5. The reference r leo was not used to int erpret this result as normal/abnormal . [facility] CenterTyjecbpIBZUXSDLBA8800-07-49 11:21:00 Test Item Value Reference Range Interpretation Comments Lymphocytes # (test code = Lymphocytes 2.5 1.0-5.5 #) [facility] CenterCywlfzhVYGFAUWXSM0703-89-72 11:21:00 Test Item Value Reference Range Interpretation Comments Segs (test code = Segs) 63.3 45.0-75.0 [facility] CenterEdqdvnpPJTTQHYGKL9906-17-39 11:21:00 Test Item Value Reference Range Interpretation Comments Segs-Bands # (test code = Segs-Bands #) 5.6 1.5-8.1 [facility] CenterMosazujOLMPHEHLWB6822-12-51 11:21:00 Test Item Value Reference Range Interpretation Comments Basophils (test code = 0.0 See_Comment [Aut omated message] The Basophils) system which ge nerated this result tra nsmitted reference range : <=1.0. The reference r leo was not used to int erpret this result as normal/abnormal . [facility] CenterJyvutcdCIKYBCBNHX4989-90-24 11:21:00 Test Item Value Reference Range Interpretation Comments Eosinophils (test code = 0.9 See_Comment [A utomated message] The Eosinophils) system which ge nerated this result tra nsmitted reference range : <=4.0. The reference r leo was not used to int erpret this result as normal/abnormal . [facility] CenterEhisswaXPAIUBWHAB4168-17-81 11:21:00 Test Item Value Reference Range Interpretation Comments Monocytes (test code = Monocytes) 7.0 2.0-12.0 [facility] CenterGpejnovJMAXNRXCDY5442-23-44 11:21:00 Test Item Value Reference Range Interpretation Comments Lymphocytes (test code = Lymphocytes) 28.8 20.0-40.0 [facility] CenterQvjvxagBDVKNOWUFG5509-47-21 11:21:00 Test Item Value Reference Range Interpretation Comments WBC (test code = WBC) 8.8 3.7-10.4 [facility] CenterJykgehnOPQIKDQCQH8900-74-87 11:21:00 Test Item Value Reference Range Interpretation Comments RBC (test code = RBC) 5.19 4.20-5.40 [facility] CenterZwuiutyANBRREZIQI0372-65-34 11:21:00 Test Item Value Reference Range Interpretation Comments Hgb (test code = Hgb) 14.4 12.0-16.0 [facility] CenterHeyyexdBVGMUGGXTE7664-14-53 11:21:00 Test Item Value Reference Range Interpretation Comments Hct (test code = Hct) 43.1 36.0-48.0 [facility] CenterQhoanvnAIAFXXPKDX3094-54-90 11:21:00 Test Item Value Reference Range Interpretation Comments MCV (test code = MCV) 83.1 80.0-98.0 [facility] CenterOkejvpzNEGVCJITPF1338-61-03 11:21:00 Test Item Value Reference Range Interpretation Comments MCH (test code = MCH) 27.8 pg 27.0-31.0 [facility] CenterPbgnegnASBUJIIVVV2599-88-65 11:21:00 Test Item Value Reference Range Interpretation Comments RDW (test code = RDW) 13.1 11.5-14.5 [facility] CenterBrasyxuANIFOHKSZQ0007-19-81 11:21:00 Test Item Value Reference Range Interpretation Comments MCHC (test code = MCHC) 33.5 32.0-36.0 [facility] CenterOrrgfzgSAKOYRQKCQ1653-57-88 11:21:00 Test Item Value Reference Range Interpretation Comments Platelet (test code = Platelet) 201 133-450 [facility] CenterUllgxotZZHQBXXUWA9535-88-50 11:21:00 Test Item Value Reference Range Interpretation Comments MPV (test code = MPV) 10.4 7.4-10.4 [facility]OjyayqqPOIKBFDMKN8713-47-75 04:48:55 Test Item Value Reference Range Interpretation Comments UA [place] Yeast (test code = UA Occasional /HPF A [place] Yeast) [facility]GubiqfiOXZNZPMCFX1050-78-13 04:48:55 Test Item Value Reference Range Interpretation Comments UA Mucus (test code = UA Mucus) Few /LPF N [facility] DallasXbcxvmlMLYQLFVQJC2955-42-39 04:48:55 Test Item Value Reference Range Interpretation Comments UA Sq Epi (test code = UA Sq Moderate /LPF A Epi) [facility] DallasGiaeqjhBZZHVFIIVT4701-14-04 04:48:55 Test Item Value Reference Range Interpretation Comments Micro? (test code = Performed (04/14/2013 N Micro?) 23:48:55) [facility] DallasWuvqyorRCDUDIHMPW9444-45-83 04:48:55 Test Item Value Reference Range Interpretation Comments UA WBC (test code = UA WBC) 0-2 /HPF N [facility] DallasAusexljPOHWKJVBUV0937-61-87 04:48:55 Test Item Value Reference Range Interpretation Comments UA Bacteria (test code = UA Occasional /HPF N Bacteria) [facility] DallasFtelovlERDPNGMNBE3777-58-19 04:48:55 Test Item Value Reference Range Interpretation Comments UA Glucose (test code = UA Glucose) 500 mg/dL A [facility] DallasBjeqpebGIFCJJIWRY1494-41-96 04:48:55 Test Item Value Reference Range Interpretation Comments UA Bili (test code = Negative *NA*(04/14/2013 UA Bili) 23:48:55) [facility] DallasRqvnuodETUIVUHKRR3573-40-90 04:48:55 Test Item Value Reference Range Interpretation Comments UA Ketones (test code = Trace A UA Ketones) *ABN*(04/14/2013 23:48:55) [facility] DallasOypkdylXVEZGXITIS8011-64-30 04:48:55 Test Item Value Reference Range Interpretation Comments UA Blood (test code = Negative (04/14/2013 N UA Blood) 23:48:55) [facility] DallasCajiotuTQUZCKKPIO8264-78-06 04:48:55 Test Item Value Reference Range Interpretation Comments UA Urobilinogen (test code = UA 0.2 0.1-1.0 N Urobilinogen) [facility] DallasRzwzeumCPLFVAVRMG8741-93-57 04:48:55 Test Item Value Reference Range Interpretation Comments UA Nitrite (test code Negative (04/14/2013 N = UA Nitrite) 23:48:55) [facility]landXumaqszTXMRJYYCSL5304-71-07 04:48:55 Test Item Value Reference Range Interpretation Comments UA Leuk Est (test Negative (04/14/2013 N code = UA Leuk Est) 23:48:55) [facility] DallasNrxqizwUFDBGVEIOP2452-35-74 04:48:55 Test Item Value Reference Range Interpretation Comments UA Turbidity (test code = Clear (04/14/2013 N UA Turbidity) 23:48:55) [facility] DallasRdvsttnGLOXHHIUME8494-42-19 04:48:55 Test Item Value Reference Range Interpretation Comments UA Color (test code = Yellow *NA*(04/14/2013 UA Color) 23:48:55) [facility] DallasKduzfxhDYCLKTZATO1855-92-30 04:48:55 Test Item Value Reference Range Interpretation Comments UA pH (test code = UA pH) 7.0 1 5.0-8.0 N [facility] DallasKpvptaiJYLFJQFSJV7937-65-98 04:48:55 Test Item Value Reference Range Interpretation Comments UA Spec Grav (test code = UA Spec 1.025 1 N Grav) [facility] DallasJzzhnclJYCZWWMPIE6865-60-91 04:48:55 Test Item Value Reference Range Interpretation Comments UA Protein (test code = Trace A UA Protein) *ABN*(04/14/2013 23:48:55) [facility]BtnqgvmESEFDGMGG7225-38-94 04:28:00 Test Item Value Reference Range Interpretation Comments S Preg (test code = S Negative *NA*(04/14/2013 Preg) 23:28:00) [facility]anoWiuxjkdAFUXKMJDB6351-38-26 04:28:00 Test Item Value Reference Range Interpretation Comments Lipase Lvl (test code = Lipase Lvl) 233 73-393 N [facility] PlanoZnfxunzAHHYOATTE9597-77-55 04:28:00 Test Item Value Reference Range Interpretation Comments Globulin (test code = Globulin) 4.1 2.0-4.0 H [facility]anoQlhjamiRTSNICYBA1277-24-83 04:28:00 Test Item Value Reference Range Interpretation Comments AGAP (test code = AGAP) 10.5 10.0-20.0 N [facility] PlanoNviaslwTLIWDBPBV5836-23-27 04:28:00 Test Item Value Reference Range Interpretation Comments B/C Ratio (test code = B/C Ratio) 6 6-25 [facility] [facility]YlulecgCKSQAVFLE2077-68-72 04:28:00 Test Item Value Reference Range Interpretation Comments A/G Ratio (test code = A/G Ratio) 0.7 0.7-1.6 N [facility]OvnaswvVOECMHCSO8535-62-13 04:28:00 Test Item Value Reference Range Interpretation Comments eGFR (test code = eGFR) 130 [facility] [place]anoJmlhifpSTZDKGFXJ1498-97-83 04:28:00 Test Item Value Reference Range Interpretation Comments Albumin Lvl (test code = Albumin Lvl) 2.9 3.5-5.0 L [facility] [place]anoRydgzaiNMIHJHZTO8289-16-12 04:28:00 Test Item Value Reference Range Interpretation Comments ASPARTATE TRANSAMINASE 20 See_Comment N [Aut omated message] (test code = ASPARTATE The s ystem which TRANSAMINASE) generated this result transmitted ref erence range: <=37. Th e reference range was not used to interpr et this result as normal/abnormal . [facility]anoWgswwkjNPBQAGPQB6375-47-62 04:28:00 Test Item Value Reference Range Interpretation Comments Bili Total (test code = Bili Total) 0.5 0.2-1.3 N [facility] [place]anoQojcdvmJZJOPIYCD9628-01-86 04:28:00 Test Item Value Reference Range Interpretation Comments Alk Phos (test code = Alk Phos) 89 39-136 N [facility] [place]anoXupomhdXNZESAXKT0162-81-55 04:28:00 Test Item Value Reference Range Interpretation Comments ALANINE AMINOTRANSFERASE 11 See_Comment N [A utomated message] (test code = ALANINE The sys tem which AMINOTRANSFERASE) generated this result transmitted ref erence range: <=65. Th e reference range was not used to int erpret this result as normal/abnormal . [facility]anoSzdrcudTNOYJBUVL2694-47-43 04:28:00 Test Item Value Reference Range Interpretation Comments Creatinine Lvl (test code = Creatinine 0.5 0.5-1.4 N Lvl) [facility]anoBfvuzjdRTEXRTABP3713-69-88 04:28:00 Test Item Value Reference Range Interpretation Comments BUN (test code = BUN) 3 7-22 L [facility] [place]anoPyisxynVQVUAOGMW8353-64-73 04:28:00 Test Item Value Reference Range Interpretation Comments Glucose Lvl (test code = Glucose Lvl) 255 70-99 H [facility] [place]anoBioavvaYLLDWWLQG3155-84-32 04:28:00 Test Item Value Reference Range Interpretation Comments Total Protein (test code = Total 7.0 6.4-8.4 N Protein) [facility]anoVqwetnxMDQYRDOKS4537-36-19 04:28:00 Test Item Value Reference Range Interpretation Comments Calcium Lvl (test code = Calcium Lvl) 8.7 8.5-10.5 N [facility] [place]anoWjpgecwXZRPWAOSS0345-51-47 04:28:00 Test Item Value Reference Range Interpretation Comments CO2 (test code = CO2) 29 24-32 N [facility] [place]anoJfmtrbnIWBDKVEIN0074-66-20 04:28:00 Test Item Value Reference Range Interpretation Comments Chloride Lvl (test code = Chloride Lvl) 104 95-109 N [facility] [place]anoPwyojogEYHDZOXIZ8360-91-39 04:28:00 Test Item Value Reference Range Interpretation Comments Potassium Lvl (test code = Potassium 3.5 3.5-5.1 N Lvl) [facility] [place]anoFsqqrwaVDOZFRHJE7417-54-54 04:28:00 Test Item Value Reference Range Interpretation Comments Sodium Lvl (test code = Sodium Lvl) 140 135-145 N [facility] CenterCsescexRGEPZRFFME7928-99-43 04:28:00 Test Item Value Reference Range Interpretation Comments PROTIME (test code = PROTIME) 12.1 s 12.0-14.7 N [facility] CenterGizalzoESWOEKNZEW6119-30-13 04:28:00 Test Item Value Reference Range Interpretation Comments aPTT (test code = aPTT) 39.0 s 22.9-35.8 H [facility] CenterEtuxxukQUCZXHWOEP3123-08-03 04:28:00 Test Item Value Reference Range Interpretation Comments INR (test code = INR) 0.90 0.85-1.17 N [facility] CenterIuhjhxtZEALJBCCTH3304-59-08 04:28:00 Test Item Value Reference Range Interpretation Comments MCH (test code = MCH) 29.4 pg 27.0-31.0 N [facility] CenterXeuuqbuRQTBPEHKOB6127-68-86 04:28:00 Test Item Value Reference Range Interpretation Comments MCV (test code = MCV) 86.1 81.0-99.0 N [facility] CenterTabmlwhRTFEZEBCSE1728-35-91 04:28:00 Test Item Value Reference Range Interpretation Comments Hct (test code = Hct) 29.4 36.0-48.0 L [facility] CenterClcnrydSXTBEONJPG7741-64-30 04:28:00 Test Item Value Reference Range Interpretation Comments RDW (test code = RDW) 14.0 11.5-14.5 N [facility] CenterGwnzzuxNJPRLMXPYB9622-92-71 04:28:00 Test Item Value Reference Range Interpretation Comments WBC X 10x3 (test code = WBC X 10x3) 6.2 3.7-10.4 N [facility] CenterVbpvzmtOUCKHYMGWO5149-31-43 04:28:00 Test Item Value Reference Range Interpretation Comments Platelet (test code = Platelet) 178 133-450 N [facility] CenterHtsuftqFYVVBOWRSR3763-14-93 04:28:00 Test Item Value Reference Range Interpretation Comments MCHC (test code = MCHC) 34.1 32.0-36.0 N [facility] CenterQytstsjHAIGNHFACP4407-77-75 04:28:00 Test Item Value Reference Range Interpretation Comments RBC X 10x6 (test code = RBC X 10x6) 3.41 4.20-5.40 L [facility] CenterFikgibwWMWMUDHNXR0704-29-29 04:28:00 Test Item Value Reference Range Interpretation Comments Hgb (test code = Hgb) 10.0 12.0-16.0 L [facility] CenterZnklrkoHFJGSJPQRP1806-67-45 04:28:00 Test Item Value Reference Range Interpretation Comments MPV (test code = MPV) 10.1 7.4-10.4 N [facility] CenterExiqiawZFMDZCYKOC0441-17-17 04:28:00 Test Item Value Reference Range Interpretation Comments Segs-Bands # (test code = Segs-Bands #) 4.4 1.5-8.1 N [facility] CenterNwbzmkqCPBFOGLBKE1490-50-14 04:28:00 Test Item Value Reference Range Interpretation Comments Basophils (test code = 0.7 See_Comment N [Aut omated message] The Basophils) system which ge nerated this result tra nsmitted reference range : <=1.0. The reference r leo was not used to int erpret this result as normal/abnormal . [facility] CenterRtkudcuXRYOFLMTJZ8231-70-03 04:28:00 Test Item Value Reference Range Interpretation Comments Segs (test code = Segs) 70.7 45.0-75.0 N [facility] CenterZaffxwjKIRHKCGGNF3950-45-04 04:28:00 Test Item Value Reference Range Interpretation Comments Monocytes # (test code 0.3 See_Comment N [Aut omated message] The = Monocytes #) system which generated this result tra nsmitted reference range : <=0.8. The reference r leo was not used to int erpret this result as normal/abnormal . [facility] CenterQeeboyvNHHVGVOZWT3711-09-94 04:28:00 Test Item Value Reference Range Interpretation Comments Lymphocytes # (test code = Lymphocytes 1.2 1.0-5.5 N #) [facility] CenterCnrvdwpRRAVIGWXVF5643-75-00 04:28:00 Test Item Value Reference Range Interpretation Comments Monocytes (test code = Monocytes) 4.5 2.0-12.0 N [facility] CenterBpxgwjbNYNNHHEDID0111-33-87 04:28:00 Test Item Value Reference Range Interpretation Comments Eosinophils (test code = 4.1 See_Comment H [A utomated message] The Eosinophils) system which ge nerated this result tra nsmitted reference range : <=4.0. The reference r leo was not used to int erpret this result as normal/abnormal . [facility] CenterHyafqenSFPPTYNAKG8776-09-01 04:28:00 Test Item Value Reference Range Interpretation Comments Lymphocytes (test code = Lymphocytes) 20.0 20.0-40.0 N [facility] CenterRnlawakJPCICJKBIG4928-94-80 04:28:00 Test Item Value Reference Range Interpretation Comments Basophils # (test code 0.0 See_Comment N [Aut omated message] The = Basophils #) system which generated this result tra nsmitted reference range : <=0.2. The reference r leo was not used to int erpret this result as normal/abnormal . [facility] CenterZhstxezHCLRCWQBOX8088-17-20 04:28:00 Test Item Value Reference Range Interpretation Comments Eosinophils # (test code 0.3 See_Comment N [A utomated message] The = Eosinophils #) system whic h generated this result tra nsmitted reference range : <=0.5. The reference r leo was not used to int erpret this result as normal/abnormal . [facility] GLUCOSE HWNFTNN0376-40-54 01:12:00 Test Item Value Reference Range Interpretation Comments Gluc POC Lifscn (test code = Gluc POC 260 70-99 H Lifscn) [facility] GLUCOSE LLFOPIY4175-53-91 01:12:00 Test Item Value Reference Range Interpretation Comments Comment1 (test code = Comment1) [facility]PecooqsXXLJLECIUH1957-79-58 23:40:00 Test Item Value Reference Range Interpretation Comments UA Protein (test code = Trace A UA Protein) *ABN*(03/14/2012 18:40:00) [facility] DallasEuedatqMPGZZXJDNY9869-96-77 23:40:00 Test Item Value Reference Range Interpretation Comments UA pH (test code = UA pH) 6.0 1 5.0-8.0 N [facility] DallasClmhajoQDBCLYWHCV2087-99-43 23:40:00 Test Item Value Reference Range Interpretation Comments UA Ketones (test code = >=80 mg/dL UA Ketones) *NA*(03/14/2012 18:40:00) [facility] DallasPbdqfhpDNDZQVSNSM3411-24-71 23:40:00 Test Item Value Reference Range Interpretation Comments UA Glucose (test code = >=1000 mg/dL A UA Glucose) *ABN*(03/14/2012 18:40:00) [facility] DallasDsbyvmaFYGVCNLPQL1932-07-71 23:40:00 Test Item Value Reference Range Interpretation Comments UA Blood (test code = Negative (03/14/2012 N UA Blood) 18:40:00) [facility] DallasQvadjalIRGWWKPXNM4254-65-33 23:40:00 Test Item Value Reference Range Interpretation Comments UA Nitrite (test code Negative (03/14/2012 N = UA Nitrite) 18:40:00) [facility] DallasNjmfkxwDTMURHRTHF9249-18-02 23:40:00 Test Item Value Reference Range Interpretation Comments UA Urobilinogen (test code = UA 0.2 0.1-1.0 N Urobilinogen) [facility] DallasSrgoikfPWXWNXHLLH4940-11-63 23:40:00 Test Item Value Reference Range Interpretation Comments UA Leuk Est (test Negative (03/14/2012 N code = UA Leuk Est) 18:40:00) [facility] DallasAmjgmedHSIDIGFWKV8060-87-38 23:40:00 Test Item Value Reference Range Interpretation Comments UA Bili (test code = Negative *NA*(03/14/2012 UA Bili) 18:40:00) [facility] DallasBftjfxpDIAIWSFANX5848-88-51 23:40:00 Test Item Value Reference Range Interpretation Comments UA Turbidity (test code = Clear (03/14/2012 N UA Turbidity) 18:40:00) [facility]AsmyjhkRPGWZUCUVE7321-28-70 23:40:00 Test Item Value Reference Range Interpretation Comments UA Color (test code = Yellow *NA*(03/14/2012 UA Color) 18:40:00) [facility] DallasXzuhirrDKRCDMOBXK2905-60-58 23:40:00 Test Item Value Reference Range Interpretation Comments UA Spec Grav (test >=1.030 A code = UA Spec Grav) *ABN*(03/14/2012 18:40:00) [facility] DallasHdlpcawTSUPYRLBDG9398-46-06 23:40:00 Test Item Value Reference Range Interpretation Comments UA Sq Epi (test code Occasional /LPF N = UA Sq Epi) (03/14/2012 18:40:00) [facility] DallasWesldwyMIRPATYOGM7818-49-61 23:40:00 Test Item Value Reference Range Interpretation Comments UA WBC (test code = UA 3-5 /HPF (03/14/2012 N WBC) 18:40:00) [facility] DallasJfmgrxyTUWSMNBDZP1800-44-16 23:40:00 Test Item Value Reference Range Interpretation Comments UA Bacteria (test code Occasional /HPF N = UA Bacteria) (03/14/2012 18:40:00) [facility]anoOarcgadCQLXAFQLH9588-81-20 22:50:00 Test Item Value Reference Range Interpretation Comments S Preg (test code = S Negative *NA*(03/14/2012 Preg) 17:50:00) [facility]anoCbqkhdsUQDSGFYBN9894-21-64 22:50:00 Test Item Value Reference Range Interpretation Comments Lipase Lvl (test code = Lipase Lvl) 45 73-393 L [facility]anoEvmzghmESXUTOHBJ4051-88-32 22:50:00 Test Item Value Reference Range Interpretation Comments A/G Ratio (test code = A/G Ratio) 1.2 0.7-1.6 N [facility]anoLnvcxqcORDHYKQHE8802-65-05 22:50:00 Test Item Value Reference Range Interpretation Comments Globulin (test code = Globulin) 3.8 2.0-4.0 N [facility]anoEphcgopTMRGNGNFV5605-37-34 22:50:00 Test Item Value Reference Range Interpretation Comments B/C Ratio (test code = B/C Ratio) 21 6-25 N [facility]anoBosdpytDQFOZKBMV8125-54-27 22:50:00 Test Item Value Reference Range Interpretation Comments AGAP (test code = AGAP) 16.8 10.0-20.0 N [facility]anoUagryvyXBOXDFRJD1687-30-12 22:50:00 Test Item Value Reference Range Interpretation Comments Bili Total (test code = Bili Total) 1.1 0.2-1.3 N [facility]anoGlavordDAUMVDEEV2902-37-98 22:50:00 Test Item Value Reference Range Interpretation Comments Total Protein (test code = Total 8.2 6.4-8.4 N Protein) [facility]anoPikplpjRZRNEFFFM4287-70-12 22:50:00 Test Item Value Reference Range Interpretation Comments Potassium Lvl (test code = Potassium 3.8 3.5-5.1 N Lvl) [facility]anoZjjvlbtUHBHXAASX7432-16-75 22:50:00 Test Item Value Reference Range Interpretation Comments Creatinine Lvl (test code = Creatinine 0.7 0.5-1.4 N Lvl) [facility]anoPmapgxuYTGEPZGTG0619-92-64 22:50:00 Test Item Value Reference Range Interpretation Comments Sodium Lvl (test code = Sodium Lvl) 139 135-145 N [facility]anoLvdwpbkGZFQYGSCW7722-63-24 22:50:00 Test Item Value Reference Range Interpretation Comments Chloride Lvl (test code = Chloride Lvl) 99 95-109 N [facility] [place]anoPthabtgCKHLKUBVB7566-13-42 22:50:00 Test Item Value Reference Range Interpretation Comments CO2 (test code = CO2) 27 24-32 N [facility] PlanoSoknibbOJMASXHLW8967-46-76 22:50:00 Test Item Value Reference Range Interpretation Comments Glucose Lvl (test code = Glucose Lvl) 301 70-99 H [facility] [place]anoOsxggeyMDNIDNZSQ4991-26-27 22:50:00 Test Item Value Reference Range Interpretation Comments BUN (test code = BUN) 15 7-22 N [facility]anoLnqqrwiZIJNFWOWU1292-40-45 22:50:00 Test Item Value Reference Range Interpretation Comments ALT (test code = ALT) 24 See_Comment N [Auto mated message] The system which ge nerated this result transmit rohit reference range : <=65. The reference range was not used to interpr et this result as reji l/abnormal. [facility]anoWxsyszrIRLSMKOCM6421-95-05 22:50:00 Test Item Value Reference Range Interpretation Comments AST (test code = AST) 20 See_Comment N [Auto mated message] The system which ge nerated this result transmit rohit reference range : <=37. The reference range was not used to interpr et this result as reji l/abnormal. [facility] PlanoRyklbxdBQASCEVIZ5906-02-90 22:50:00 Test Item Value Reference Range Interpretation Comments Alk Phos (test code = Alk Phos) 67 39-136 N [facility]anoEudzwpdGTOMKRFPS4791-87-86 22:50:00 Test Item Value Reference Range Interpretation Comments Albumin Lvl (test code = Albumin Lvl) 4.4 3.5-5.0 N [facility]anoVqubhzoXSKMAOJRP2113-78-02 22:50:00 Test Item Value Reference Range Interpretation Comments Calcium Lvl (test code = Calcium Lvl) 9.9 8.5-10.5 N [facility] CenterAdaovkhQPSQVNSFMU2268-46-69 22:50:00 Test Item Value Reference Range Interpretation Comments MPV (test code = MPV) 11.8 7.4-10.4 H [facility] CenterDsprvfeZFUVOZXQFW0380-44-83 22:50:00 Test Item Value Reference Range Interpretation Comments MCHC (test code = MCHC) 35.9 32.0-36.0 N [facility] CenterTktlhtpQZVTICNQLO9650-54-67 22:50:00 Test Item Value Reference Range Interpretation Comments MCH (test code = MCH) 31.2 pg 27.0-31.0 H [facility] CenterPuplxreAIZKUXQMJX9543-31-17 22:50:00 Test Item Value Reference Range Interpretation Comments Platelet (test code = Platelet) 189 133-450 N [facility] CenterVplhnnkIHCVOZIHPK0174-83-61 22:50:00 Test Item Value Reference Range Interpretation Comments RDW (test code = RDW) 13.1 11.5-14.5 N [facility] CenterOiuhqjdZDTQSMXXFB4240-57-45 22:50:00 Test Item Value Reference Range Interpretation Comments Hct (test code = Hct) 40.7 36.0-48.0 N [facility] CenterTpkidzyRBJGQTNHGF5862-67-51 22:50:00 Test Item Value Reference Range Interpretation Comments Hgb (test code = Hgb) 14.6 12.0-16.0 N [facility] CenterVanshbjKZBBOWHNPA1571-86-42 22:50:00 Test Item Value Reference Range Interpretation Comments MCV (test code = MCV) 87.0 81.0-99.0 N [facility] CenterRvkekyaJQIAWXSRMM2199-88-29 22:50:00 Test Item Value Reference Range Interpretation Comments WBC (test code = WBC) 11.7 3.7-10.4 H [facility] CenterAdlgimnRPLRHPDWDK0163-04-47 22:50:00 Test Item Value Reference Range Interpretation Comments RBC (test code = RBC) 4.68 4.20-5.40 N [facility] CenterQtoydozNJBOFOBVXU4451-66-84 22:50:00 Test Item Value Reference Range Interpretation Comments Basophils # (test code 0.0 See_Comment N [Aut omated message] The = Basophils #) system which generated this result tra nsmitted reference range : <=0.2. The reference r leo was not used to int erpret this result as normal/abnormal . [facility] CenterHgwnftsMJKCOXHBJU4963-90-56 22:50:00 Test Item Value Reference Range Interpretation Comments Basophils (test code = 0.2 See_Comment N [Aut omated message] The Basophils) system which ge nerated this result tra nsmitted reference range : <=1.0. The reference r leo was not used to int erpret this result as normal/abnormal . [facility] CenterRkxvoxlJAYDTUNNAK8422-55-09 22:50:00 Test Item Value Reference Range Interpretation Comments Eosinophils # (test code 0.0 See_Comment N [A utomated message] The = Eosinophils #) system whic h generated this result tra nsmitted reference range : <=0.5. The reference r leo was not used to int erpret this result as normal/abnormal . [facility] CenterSxhwpwaTROTDAWAQX7495-36-89 22:50:00 Test Item Value Reference Range Interpretation Comments Monocytes # (test code 0.4 See_Comment N [Aut omated message] The = Monocytes #) system which generated this result tra nsmitted reference range : <=0.8. The reference r leo was not used to int erpret this result as normal/abnormal . [facility] CenterStuctbrZOLPXCKTFB9262-02-59 22:50:00 Test Item Value Reference Range Interpretation Comments Segs-Bands # (test code = Segs-Bands #) 10.6 1.5-8.1 H [facility] CenterVisdewsSYCVYGRKFR9884-72-53 22:50:00 Test Item Value Reference Range Interpretation Comments Lymphocytes # (test code = Lymphocytes 0.7 1.0-5.5 L #) [facility] CenterNgwnidzPEMEBAHKZV5620-27-15 22:50:00 Test Item Value Reference Range Interpretation Comments Monocytes (test code = Monocytes) 3.4 2.0-12.0 N [facility] CenterKimzzeiDZVELSTRHU3214-47-46 22:50:00 Test Item Value Reference Range Interpretation Comments Plt Morph (test code = Normal (03/14/2012 N Plt Morph) 17:50:00) [facility] CenterTiqeyoxYMQSJXVTNS5757-36-26 22:50:00 Test Item Value Reference Range Interpretation Comments Lymphocytes (test code = Lymphocytes) 6.0 20.0-40.0 L [facility] CenterDaylwltDTTRRHRKVR1012-62-55 22:50:00 Test Item Value Reference Range Interpretation Comments Eosinophils (test code = 0.0 See_Comment N [A utomated message] The Eosinophils) system which ge nerated this result tra nsmitted reference range : <=4.0. The reference r leo was not used to int erpret this result as normal/abnormal . [facility] CenterAkxjhuzYRELZACXKF7776-68-52 22:50:00 Test Item Value Reference Range Interpretation Comments Segs (test code = Segs) 90.4 45.0-75.0 H [facility] CenterHxyejrbBPNRFJUCNH3360-73-40 22:50:00 Test Item Value Reference Range Interpretation Comments RBC Morph (test code = Normal (03/14/2012 N RBC Morph) 17:50:00) [facility] GLUCOSE JVGTUUS9813-85-52 23:43:00 Test Item Value Reference Range Interpretation Comments Gluc POC Lifscn (test code = Gluc POC 167 70-99 H Lifscn) [facility] GLUCOSE WODVZKG1249-80-75 23:43:00 Test Item Value Reference Range Interpretation Comments Comment1 (test code = Comment1) Notify RN/MD [facility] GLUCOSE CBBSSCC8401-23-61 23:43:00 Test Item Value Reference Range Interpretation Comments Comment2 (test code = Comment2) Sliding Scale [facility] GLUCOSE SZBRISG1863-79-21 17:40:00 Test Item Value Reference Range Interpretation Comments Gluc POC Lifscn (test code = Gluc POC 189 70-99 H Lifscn) [facility] GLUCOSE ZZOMCIM4749-59-81 17:40:00 Test Item Value Reference Range Interpretation Comments Comment1 (test code = Comment1) [facility]annPH[facility]IDE GLUCOSE PLACMTB5116-72-02 17:40:00 Test Item Value Reference Range Interpretation Comments Comment2 (test code = Comment2) Sliding Scale [facility] GLUCOSE RGRGTCR6389-50-49 13:34:00 Test Item Value Reference Range Interpretation Comments Comment2 (test code = Comment2) Sliding Scale [facility] GLUCOSE LUCFXZB4643-47-97 13:34:00 Test Item Value Reference Range Interpretation Comments Gluc POC Lifscn (test code = Gluc POC 110 70-99 H Lifscn) [facility] GLUCOSE LFCZBOZ8058-99-16 13:34:00 Test Item Value Reference Range Interpretation Comments Comment1 (test code = Comment1) [facility] BrownwoodYxyaefnVMLXMNUJY5551-57-25 00:00:00 Test Item Value Reference Range Interpretation Comments U Preg (test code = U Negative (11/28/2011 N Preg) 19:00:00) [facility] CenterKonirtrAQILDOSUNN5160-01-56 00:00:00 Test Item Value Reference Range Interpretation Comments Micro? (test code = Performed (11/28/2011 N Micro?) 19:00:00) [facility] CenterFswqsgrBZKGDJZPYO4224-11-45 00:00:00 Test Item Value Reference Range Interpretation Comments UA Sq Epi (test code Occasional /LPF N = UA Sq Epi) (11/28/2011 19:00:00) [facility] CenterIrwdqjgDXVFALZIEK7858-76-70 00:00:00 Test Item Value Reference Range Interpretation Comments UA RBC (test None Seen See_Comment N [Automated mes pastor] code = UA RBC) (11/28/2011 The system ich 19:00:00) generated this result transmitted ref erence range: <=2. The reference range was not used to int erpret this result as normal/abnormal . [facility] BrownwoodOvkwbjlQOEQHGFQPS6703-20-01 00:00:00 Test Item Value Reference Range Interpretation Comments UA WBC (test code Occasional See_Comment [Automate d message] The = UA WBC) system which ge nerated this result tra nsmitted reference range : <=5. The reference range was not used to interpr et this result as normal/abnormal . [facility] BrownwoodTyycteqLWSNGFIBZH6669-25-55 00:00:00 Test Item Value Reference Range Interpretation Comments UA Protein (test code Negative mg/dL N = UA Protein) (11/28/2011 19:00:00) [facility]VmhjhvhFYKNGJVGMN4642-44-28 00:00:00 Test Item Value Reference Range Interpretation Comments UA pH (test code = UA pH) 7.0 1 5.0-8.0 N [facility] DallasLfwfdqlGWYXTTGLGB3906-96-50 00:00:00 Test Item Value Reference Range Interpretation Comments UA Spec Grav (test code = UA Spec 1.020 1 N Grav) [facility] DallasJefncfyRIQRGFWDBH2810-92-97 00:00:00 Test Item Value Reference Range Interpretation Comments UA Turbidity (test code = Clear (11/28/2011 N UA Turbidity) 19:00:00) [facility] DallasQahogsxKHDGUVGFET4298-86-25 00:00:00 Test Item Value Reference Range Interpretation Comments UA Color (test code = Yellow *NA*(11/28/2011 UA Color) 19:00:00) [facility] DallasNmerissPBGVSPHNQG9897-21-49 00:00:00 Test Item Value Reference Range Interpretation Comments UA Urobilinogen (test code = UA 0.2 0.1-1.0 N Urobilinogen) [facility] DallasSajmlivGSZBPFALTZ0570-24-72 00:00:00 Test Item Value Reference Range Interpretation Comments UA Blood (test code = Negative (11/28/2011 N UA Blood) 19:00:00) [facility] DallasLtkbucyBHGFSEWMEB5015-94-35 00:00:00 Test Item Value Reference Range Interpretation Comments UA Bili (test code = Negative *NA*(11/28/2011 UA Bili) 19:00:00) [facility] DallasHihhzyyZOOGMLUWCD3947-33-95 00:00:00 Test Item Value Reference Range Interpretation Comments UA Ketones (test code = >=80 mg/dL A UA Ketones) *ABN*(11/28/2011 19:00:00) [facility] DallasWaevtibGFZIVMXXPN0152-99-90 00:00:00 Test Item Value Reference Range Interpretation Comments UA Glucose (test code = >=1000 mg/dL A UA Glucose) *ABN*(11/28/2011 19:00:00) [facility] DallasFjrerymREJZLQCTJO2736-68-36 00:00:00 Test Item Value Reference Range Interpretation Comments UA Nitrite (test code Negative (11/28/2011 N = UA Nitrite) 19:00:00) [facility]EbapobkOGEVWYPFMV2034-55-27 00:00:00 Test Item Value Reference Range Interpretation Comments UA Leuk Est (test Negative (11/28/2011 N code = UA Leuk Est) 19:00:00) [facility] CenterKlitnawLLORFBBNK7935-67-62 20:41:00 Test Item Value Reference Range Interpretation Comments pO2 Roberth (test code = pO2 Roberth) 60 20-49 H [facility]anoRfqbkzaBLRTMMYMU8592-01-83 20:41:00 Test Item Value Reference Range Interpretation Comments pCO2 Roberth (test code = pCO2 Roberth) 41 38-52 N [facility] PlanoOxiecmpSHQGJOWGS9424-82-79 20:41:00 Test Item Value Reference Range Interpretation Comments pH Roberth (test code = pH Roberth) 7.45 7.28-7.42 H [facility] PlanoLkgkauqWIZYFZHEE2154-20-59 20:41:00 Test Item Value Reference Range Interpretation Comments Temp Roberth (test code = Temp Roberth) 37.0 [facility] PlanoBkkwipjSBRSPSCPH5993-91-90 20:41:00 Test Item Value Reference Range Interpretation Comments O2 Sat Roberth (test code = O2 Sat Roberth) 92.0 40.0-70.0 H [facility] PlanoRsavxvqJBLVIFAKF6099-09-79 20:41:00 Test Item Value Reference Range Interpretation Comments BE Roberth (test code = 4 See_Comment H [Automa rohit message] The BE Roberth) system which ge nerated this result transmit rohit reference range : <=2. The reference range was not used to interpr et this result as reji l/abnormal. [facility] PlanoPdtlfllUEWWQNVYX2725-21-14 20:41:00 Test Item Value Reference Range Interpretation Comments HCO3 Roberth (test code = HCO3 Roberth) 28.5 22.0-26.0 H [facility] PlanoKvqaeicQRJIETKQD3911-34-21 20:00:00 Test Item Value Reference Range Interpretation Comments Lactic Acid Lvl (test code = Lactic 1.6 0.5-2.2 N Acid Lvl) [facility] PlanoJvzworeITKMFZDEN3820-27-21 20:00:00 Test Item Value Reference Range Interpretation Comments Lipase Lvl (test code = Lipase Lvl) 125 73-393 N [facility] PlanoXlhougaTPUEXLXFH9931-94-15 20:00:00 Test Item Value Reference Range Interpretation Comments Albumin Lvl (test code = Albumin Lvl) 4.2 3.5-5.0 N [facility] PlanoXrqvrdvELZTTQQBA5201-19-84 20:00:00 Test Item Value Reference Range Interpretation Comments CO2 (test code = CO2) 23 24-32 L [facility] PlanoHjlxiikSOZITJUSI8389-11-85 20:00:00 Test Item Value Reference Range Interpretation Comments Chloride Lvl (test code = Chloride Lvl) 98 95-109 N [facility] PlanoIzggxwzLNZCJKCBE0333-10-49 20:00:00 Test Item Value Reference Range Interpretation Comments Potassium Lvl (test code = Potassium 3.8 3.5-5.1 N Lvl) [facility]anoIcsfrbdIOMCBHJJB1501-17-00 20:00:00 Test Item Value Reference Range Interpretation Comments Sodium Lvl (test code = Sodium Lvl) 138 135-145 N [facility] PlanoRbjtrvkSHJREVWEK3245-69-70 20:00:00 Test Item Value Reference Range Interpretation Comments Creatinine Lvl (test code = Creatinine 0.7 0.5-1.4 N Lvl) [facility] PlanoAbssaecJRFKQJEJY4683-06-35 20:00:00 Test Item Value Reference Range Interpretation Comments BUN (test code = BUN) 9 7-22 N [facility] PlanoDbdirevUTUSOSUDE8565-76-02 20:00:00 Test Item Value Reference Range Interpretation Comments Glucose Lvl (test code = Glucose Lvl) 269 70-99 H [facility] PlanoOoprowkSEWGVTAWC4381-34-34 20:00:00 Test Item Value Reference Range Interpretation Comments B/C Ratio (test code = B/C Ratio) 13 6-25 N [facility] PlanoUdarwgsQSJKWUSDC2113-44-81 20:00:00 Test Item Value Reference Range Interpretation Comments AGAP (test code = AGAP) 20.8 10.0-20.0 H [facility] PlanoArcssxxPHGMGOYDH4204-35-25 20:00:00 Test Item Value Reference Range Interpretation Comments Calcium Lvl (test code = Calcium Lvl) 9.3 8.5-10.5 N [facility] PlanoGrbgjbqZTZBEOXHJ2967-74-57 20:00:00 Test Item Value Reference Range Interpretation Comments Total Protein (test code = Total 6.7 6.4-8.4 N Protein) [facility] PlanoKkktqqkWCQBXXQVZ4711-95-76 20:00:00 Test Item Value Reference Range Interpretation Comments A/G Ratio (test code = A/G Ratio) 1.7 0.7-1.6 H [facility] PlanoUmvkitmGVKSOQVGG4216-27-66 20:00:00 Test Item Value Reference Range Interpretation Comments Globulin (test code = Globulin) 2.5 2.0-4.0 N [facility] PlanoXtlndmvDTJENQRVK6689-38-38 20:00:00 Test Item Value Reference Range Interpretation Comments AST (test code = AST) 18 See_Comment N [Auto mated message] The system which ge nerated this result transmit rohit reference range : <=37. The reference range was not used to interpr et this result as reji l/abnormal. [facility] PlanoThjyhiwFGGYIWPHM2311-75-24 20:00:00 Test Item Value Reference Range Interpretation Comments Alk Phos (test code = Alk Phos) 62 39-136 N [facility] PlanoEyixgjqNSMUATDOJ6142-48-56 20:00:00 Test Item Value Reference Range Interpretation Comments ALT (test code = ALT) 32 See_Comment N [Auto mated message] The system which ge nerated this result transmit rohit reference range : <=65. The reference range was not used to interpr et this result as reji l/abnormal. [facility] PlanoEyybqoaLFXAKUBHM4334-38-97 20:00:00 Test Item Value Reference Range Interpretation Comments Bili Total (test code = Bili Total) 0.7 0.2-1.3 N [facility] CenterGnpoudiMUSTLEKGBF2461-02-75 20:00:00 Test Item Value Reference Range Interpretation Comments Anisocyte (test code = 1+ *ABN*(11/28/2011 A Anisocyte) 15:00:00) [facility] CenterXzigrhiDDXSPMPJNC8177-22-56 20:00:00 Test Item Value Reference Range Interpretation Comments Monocytes # (test code 0.1 See_Comment N [Aut omated message] The = Monocytes #) system which generated this result tra nsmitted reference range : <=0.8. The reference r leo was not used to int erpret this result as normal/abnormal . [facility] CenterNdqwyyxQGKWYKGIUT5896-04-99 20:00:00 Test Item Value Reference Range Interpretation Comments Eosinophils # (test code 0.0 See_Comment N [A utomated message] The = Eosinophils #) system whic h generated this result tra nsmitted reference range : <=0.5. The reference r leo was not used to int erpret this result as normal/abnormal . [facility] CenterWjfvsftMUAFKNIZKQ4957-01-00 20:00:00 Test Item Value Reference Range Interpretation Comments Basophils # (test code 0.0 See_Comment N [Aut omated message] The = Basophils #) system which generated this result tra nsmitted reference range : <=0.2. The reference r leo was not used to int erpret this result as normal/abnormal . [facility] CenterLhtjttbOUBNCJVWLP1056-76-05 20:00:00 Test Item Value Reference Range Interpretation Comments Neut Vac (test code = Slight *ABN*(11/28/2011 A Neut Vac) 15:00:00) [facility] CenterOsimhsqZLNVVWZCFV4119-72-66 20:00:00 Test Item Value Reference Range Interpretation Comments Large Plt (test code = Slight *ABN*(11/28/2011 A Large Plt) 15:00:00) [facility] CenterWfmohjpOXYNPKNQTR3270-43-80 20:00:00 Test Item Value Reference Range Interpretation Comments Segs-Bands # (test code = Segs-Bands #) 5.7 1.5-8.1 N [facility] CenterTllfrkcPRHSFBWVUP4547-65-00 20:00:00 Test Item Value Reference Range Interpretation Comments Lymphocytes # (test code = Lymphocytes 0.8 1.0-5.5 L #) [facility] CenterJryufeuNBMVYJNUZX6697-65-19 20:00:00 Test Item Value Reference Range Interpretation Comments Eosinophils (test code = 0.2 See_Comment N [A utomated message] The Eosinophils) system which ge nerated this result tra nsmitted reference range : <=4.0. The reference r leo was not used to int erpret this result as normal/abnormal . [facility] CenterJnqesheMPNNJQSQGB7767-46-85 20:00:00 Test Item Value Reference Range Interpretation Comments Basophils (test code = 0.0 See_Comment N [Aut omated message] The Basophils) system which ge nerated this result tra nsmitted reference range : <=1.0. The reference r leo was not used to int erpret this result as normal/abnormal . [facility] CenterTtketngGOFZRYVVBD0795-88-84 20:00:00 Test Item Value Reference Range Interpretation Comments Monocytes (test code = Monocytes) 1.9 2.0-12.0 L [facility] CenterXvistruZHLKYNAVZO0453-30-88 20:00:00 Test Item Value Reference Range Interpretation Comments Segs (test code = Segs) 86.2 45.0-75.0 H [facility] CenterPpzmjnbHKUUGHNAHE9073-24-06 20:00:00 Test Item Value Reference Range Interpretation Comments Lymphocytes (test code = Lymphocytes) 11.7 20.0-40.0 L [facility] CenterUzrklilMZVUHLHAJE7108-96-50 20:00:00 Test Item Value Reference Range Interpretation Comments MPV (test code = MPV) 10.8 7.4-10.4 H [facility] CenterXfgryytLKPOWOOYKM3852-73-57 20:00:00 Test Item Value Reference Range Interpretation Comments Platelet (test code = Platelet) 161 133-450 N [facility] CenterWwnnzocGJQODYLUDV9507-48-26 20:00:00 Test Item Value Reference Range Interpretation Comments MCHC (test code = MCHC) 35.6 32.0-36.0 N [facility] CenterVwsbdxmTTSADYEWYQ6960-77-82 20:00:00 Test Item Value Reference Range Interpretation Comments RDW (test code = RDW) 12.4 11.5-14.5 N [facility] CenterNbvhuagQSVROAXJNA1986-63-26 20:00:00 Test Item Value Reference Range Interpretation Comments MCH (test code = MCH) 30.7 pg 27.0-31.0 N [facility] CenterFtdwgftGMRSXFTKEY0549-65-63 20:00:00 Test Item Value Reference Range Interpretation Comments MCV (test code = MCV) 86.1 81.0-99.0 N [facility] CenterQychprrTYYQWNJCXT1725-41-50 20:00:00 Test Item Value Reference Range Interpretation Comments Hct (test code = Hct) 33.6 36.0-48.0 L [facility] CenterVprguspHEIFNRDXOE1264-14-79 20:00:00 Test Item Value Reference Range Interpretation Comments Hgb (test code = Hgb) 12.0 12.0-16.0 N [facility] CenterGumowejDLWGHPEUND1523-82-58 20:00:00 Test Item Value Reference Range Interpretation Comments RBC (test code = RBC) 3.90 4.20-5.40 L [facility] CenterSuvdaleRKMBOOPCXU1953-89-27 20:00:00 Test Item Value Reference Range Interpretation Comments WBC (test code = WBC) 6.6 3.7-10.4 N [facility]anoXclybziPHODRJBZJ8526-04-80 19:51:00 Test Item Value Reference Range Interpretation Comments UDS Note (test code = See Note UDS Note) 5*NA*(11/28/2011 14:51:00) [facility] PlanoFsccyxyMTEVPINVA8239-58-81 19:51:00 Test Item Value Reference Range Interpretation Comments U Phencyc Scr (test Negative code = U Phencyc Scr) *NA*(11/28/2011 14:51:00) [facility] PlanoRtiyrocHURRXOUFR9118-50-66 19:51:00 Test Item Value Reference Range Interpretation Comments U Kelly Scr (test code Negative *NA*(11/28/2011 = U Kelly Scr) 14:51:00) [facility] PlanoGzyemqjXPUUCGKNW3244-35-03 19:51:00 Test Item Value Reference Range Interpretation Comments U Amph Scr (test code Negative *NA*(11/28/2011 = U Amph Scr) 14:51:00) [facility] PlanoKjytotwVNVAXBZTN4571-60-70 19:51:00 Test Item Value Reference Range Interpretation Comments U Opiate Scr (test Negative code = U Opiate Scr) *NA*(11/28/2011 14:51:00) [facility] PlanoDppxrcyUTNPOUPKG7071-57-46 19:51:00 Test Item Value Reference Range Interpretation Comments U Cocaine Scr (test Negative code = U Cocaine Scr) *NA*(11/28/2011 14:51:00) [facility] PlanoGyydlrhSBUYRBRJU6338-29-92 19:51:00 Test Item Value Reference Range Interpretation Comments U Cannab Scr (test Negative code = U Cannab Scr) *NA*(11/28/2011 14:51:00) [facility] PlanoIgycbhxFRLXQQPEB1891-69-74 19:51:00 Test Item Value Reference Range Interpretation Comments U Benzodia Scr (test Negative code = U Benzodia Scr) *NA*(11/28/2011 14:51:00) [facility] GLUCOSE ZJYYOKO1211-10-72 16:20:00 Test Item Value Reference Range Interpretation Comments Comment1 (test code = Comment1) Ravi MAYS/ [facility] GLUCOSE UULSCZA5877-36-08 16:20:00 Test Item Value Reference Range Interpretation Comments Gluc POC Lifscn (test code = Gluc POC 328 70-99 H Lifscn) [facility] PlanoUhskrzvKSCOJEPSP5315-18-25 15:30:00 Test Item Value Reference Range Interpretation Comments U Preg (test code = U Negative (09/18/2011 N Preg) 10:30:00) [facility]FvpfxpsCGGPHPAOOT2139-18-33 15:30:00 Test Item Value Reference Range Interpretation Comments UA WBC (test code = UA None Seen (09/18/2011 N WBC) 10:30:00) [facility] DallasCqnmhrzLLDHAUNKYJ6126-42-86 15:30:00 Test Item Value Reference Range Interpretation Comments UA RBC (test None Seen See_Comment N [Automated mes pastor] code = UA RBC) (09/18/2011 The system [email or web address] ich 10:30:00) generated this result transmitted ref erence range: <=2. The reference range was not used to int erpret this result as normal/abnormal . [facility] DallasLwmuztnVSUUZZGGGM8999-84-29 15:30:00 Test Item Value Reference Range Interpretation Comments UA Bacteria (test code = None Seen (09/18/2011 N UA Bacteria) 10:30:00) [facility] DallasPnrhclwXPWOSTEVOD8166-73-05 15:30:00 Test Item Value Reference Range Interpretation Comments UA Amorph Destiny (test Few /HPF A code = UA Amorph Destiny) *ABN*(09/18/2011 10:30:00) [facility]landJqceubmKCTTLLYSME5475-91-71 15:30:00 Test Item Value Reference Range Interpretation Comments Micro? (test code = Performed (09/18/2011 N Micro?) 10:30:00) [facility] DallasGcvfmteEYNGKXRJMU8920-44-68 15:30:00 Test Item Value Reference Range Interpretation Comments UA Sq Epi (test code = Rare /LPF (09/18/2011 N UA Sq Epi) 10:30:00) [facility]landRnunvcsQNTCEIACFK9645-23-78 15:30:00 Test Item Value Reference Range Interpretation Comments UA Ketones (test code = 15 mg/dL A UA Ketones) *ABN*(09/18/2011 10:30:00) [facility]landWxjtbadVSYBYGCQOB8993-15-42 15:30:00 Test Item Value Reference Range Interpretation Comments UA Glucose (test code = >=1000 mg/dL A UA Glucose) *ABN*(09/18/2011 10:30:00) [facility]landRlnllcuSHBENPXVKF6555-13-35 15:30:00 Test Item Value Reference Range Interpretation Comments UA Protein (test code = Trace A UA Protein) *ABN*(09/18/2011 10:30:00) [facility]landWongeidJTTCYRLCRC2536-31-07 15:30:00 Test Item Value Reference Range Interpretation Comments UA Urobilinogen (test code = UA 0.2 0.1-1.0 N Urobilinogen) [facility]landAfrolkxVYGZZDYGSA6068-26-24 15:30:00 Test Item Value Reference Range Interpretation Comments UA Blood (test code = Negative (09/18/2011 N UA Blood) 10:30:00) [facility] CenterTzolaldNEUBGKBQDE2357-18-59 15:30:00 Test Item Value Reference Range Interpretation Comments UA Bili (test code = Negative *NA*(09/18/2011 UA Bili) 10:30:00) [facility]landOpgowtfIQFOTZWQBE2869-20-12 15:30:00 Test Item Value Reference Range Interpretation Comments UA Leuk Est (test Negative (09/18/2011 N code = UA Leuk Est) 10:30:00) [facility] CenterAfadjofJKKVIZDRUN0738-48-55 15:30:00 Test Item Value Reference Range Interpretation Comments UA Nitrite (test code Negative (09/18/2011 N = UA Nitrite) 10:30:00) [facility]landQeiqcisAIGLGWSWGG2026-24-47 15:30:00 Test Item Value Reference Range Interpretation Comments UA pH (test code = UA pH) 7.5 1 5.0-8.0 N [facility]landCjlegicKYYBYTPILS9107-90-54 15:30:00 Test Item Value Reference Range Interpretation Comments UA Spec Grav (test code = UA Spec 1.010 1 N Grav) [facility]landZrrjewxIQIONLQLWR1722-68-15 15:30:00 Test Item Value Reference Range Interpretation Comments UA Turbidity (test code Slight Cloudy N = UA Turbidity) (09/18/2011 10:30:00) [facility]landScoxjloJWTUZVNNVL3519-15-49 15:30:00 Test Item Value Reference Range Interpretation Comments UA Color (test code = Yellow *NA*(09/18/2011 UA Color) 10:30:00) [facility] CenterZmmqlhrSJNEVGHSG3324-58-99 14:07:00 Test Item Value Reference Range Interpretation Comments Phosphorus (test code = Phosphorus) 4.4 2.5-4.5 N [facility] PlanoBpjuuapUWRUYQBSW3442-49-49 14:07:00 Test Item Value Reference Range Interpretation Comments Magnesium Lvl (test code = Magnesium 1.6 1.8-2.4 L Lvl) [facility] GLUCOSE ECOZAXR5431-11-71 14:01:00 Test Item Value Reference Range Interpretation Comments Gluc POC Lifscn (test code = Gluc POC no gt 70-99 A Lifscn) [facility] PlanoRwaphkmXTRBFMGGZ3037-19-59 13:52:00 Test Item Value Reference Range Interpretation Comments pO2 Roberth (test code = pO2 Roberth) 24 20-49 N [facility] PlanoEvzceuqXXBKZQEXI6951-23-10 13:52:00 Test Item Value Reference Range Interpretation Comments HCO3 Roberth (test code = HCO3 Roberth) 32.0 22.0-26.0 H [facility] PlanoEameedzJAIVBZRRX0042-46-08 13:52:00 Test Item Value Reference Range Interpretation Comments pCO2 Roberth (test code = pCO2 Roberth) 44 38-52 N [facility] PlanoHdbzqyfWCLGSRUGQ0189-47-30 13:52:00 Test Item Value Reference Range Interpretation Comments BE Roberth (test code = 7 See_Comment H [Automa rohit message] The BE Roberth) system which ge nerated this result transmit rohit reference range : <=2. The reference range was not used to interpr et this result as reji l/abnormal. [facility] PlanoYsaukfzVLOQFOCNY7918-03-31 13:52:00 Test Item Value Reference Range Interpretation Comments O2 Sat Roberth (test code = O2 Sat Roberth) 48.0 40.0-70.0 N [facility] PlanoYckdskbFIRQVIORF2130-79-71 13:52:00 Test Item Value Reference Range Interpretation Comments Temp Roberth (test code = Temp Roberth) 37.0 [facility] PlanoAdogjudDEOENPAIX2168-84-36 13:52:00 Test Item Value Reference Range Interpretation Comments pH Roberth (test code = pH Roberth) 7.47 7.28-7.42 H [facility] PlanoNbsfvqaXSYZYFYVN7034-16-77 13:52:00 Test Item Value Reference Range Interpretation Comments Calcium Lvl (test code = Calcium Lvl) 10.1 8.5-10.5 N [facility] PlanoJlzqsdiDZKLNIKRO8164-06-38 13:52:00 Test Item Value Reference Range Interpretation Comments Chloride Lvl (test code = Chloride Lvl) 92 95-109 L [facility] PlanoVmpcdksEDWQKETHS8882-29-40 13:52:00 Test Item Value Reference Range Interpretation Comments CO2 (test code = CO2) 30 24-32 N [facility] PlanoZquaphiZNXTLPDLY2404-69-68 13:52:00 Test Item Value Reference Range Interpretation Comments Potassium Lvl (test code = Potassium 3.5 3.5-5.1 N Lvl) [facility] PlanoZdpcmngPLOHDGVEC0987-90-97 13:52:00 Test Item Value Reference Range Interpretation Comments Sodium Lvl (test code = Sodium Lvl) 133 135-145 L [facility] PlanoHdyqsqvQBGRBSTFV2145-07-24 13:52:00 Test Item Value Reference Range Interpretation Comments Creatinine Lvl (test code = Creatinine 1.3 0.5-1.4 N Lvl) [facility] PlanoKvobcvtRJEPGCKII7721-63-53 13:52:00 Test Item Value Reference Range Interpretation Comments Glucose Lvl (test code = Glucose Lvl) 383 70-99 H [facility] PlanoAoiclibHEBNHBXSZ9828-70-86 13:52:00 Test Item Value Reference Range Interpretation Comments BUN (test code = BUN) 17 7-22 N [facility] PlanoBsyeiggCFNHRHDBZ9276-54-62 13:52:00 Test Item Value Reference Range Interpretation Comments AGAP (test code = AGAP) 14.5 10.0-20.0 N [facility] CenterUohwedbVERUZHPDRC7716-98-82 13:52:00 Test Item Value Reference Range Interpretation Comments MPV (test code = MPV) 12.0 7.4-10.4 H [facility] CenterCcjlehnGXCDDZPMIM3489-30-36 13:52:00 Test Item Value Reference Range Interpretation Comments Platelet (test code = Platelet) 226 133-450 N [facility] CenterLsesdxvXUEHRJTMIA7056-05-92 13:52:00 Test Item Value Reference Range Interpretation Comments MCHC (test code = MCHC) 33.7 32.0-36.0 N [facility] CenterXhcpcmaDDRHUMXOFE3808-30-39 13:52:00 Test Item Value Reference Range Interpretation Comments MCH (test code = MCH) 28.5 pg 27.0-31.0 N [facility] CenterYhzhbefIAPVAUADQD5944-40-06 13:52:00 Test Item Value Reference Range Interpretation Comments RDW (test code = RDW) 15.1 11.5-14.5 H [facility] CenterNcnmrtdDJAKJRILWT6910-52-03 13:52:00 Test Item Value Reference Range Interpretation Comments MCV (test code = MCV) 84.6 81.0-99.0 N [facility] CenterYscibzvODBXTWWUDK1283-17-17 13:52:00 Test Item Value Reference Range Interpretation Comments Hct (test code = Hct) 36.4 36.0-48.0 N [facility] CenterHizzwjhGJRTPZIKSJ4204-51-11 13:52:00 Test Item Value Reference Range Interpretation Comments Hgb (test code = Hgb) 12.3 12.0-16.0 N [facility] CenterJaouinlEPNFOEAKCN6206-41-59 13:52:00 Test Item Value Reference Range Interpretation Comments RBC (test code = RBC) 4.30 4.20-5.40 N [facility] CenterAlfuecjIIPUHOTXTU5493-54-41 13:52:00 Test Item Value Reference Range Interpretation Comments WBC (test code = WBC) 11.7 3.7-10.4 H [facility] CenterPbddsqyNPAMJLYGHR6989-84-93 13:52:00 Test Item Value Reference Range Interpretation Comments Monocytes (test code = Monocytes) 2.9 2.0-12.0 N [facility] CenterHiyvpemYLBMIALRQS4908-64-42 13:52:00 Test Item Value Reference Range Interpretation Comments Eosinophils (test code = 0.2 See_Comment N [A utomated message] The Eosinophils) system which ge nerated this result tra nsmitted reference range : <=4.0. The reference r leo was not used to int erpret this result as normal/abnormal . [facility] CenterQbdhbqeTWBKEMLZWY9165-30-81 13:52:00 Test Item Value Reference Range Interpretation Comments Basophils (test code = 0.0 See_Comment N [Aut omated message] The Basophils) system which ge nerated this result tra nsmitted reference range : <=1.0. The reference r leo was not used to int erpret this result as normal/abnormal . [facility]XrjllrzJKKROORBZE0194-64-16 13:52:00 Test Item Value Reference Range Interpretation Comments Eosinophils # (test code 0.0 See_Comment N [A utomated message] The = Eosinophils #) system whic h generated this result tra nsmitted reference range : <=0.5. The reference r leo was not used to int erpret this result as normal/abnormal . [facility] CenterXpttncqRRYOXFGTLK4320-97-90 13:52:00 Test Item Value Reference Range Interpretation Comments Monocytes # (test code 0.3 See_Comment N [Aut omated message] The = Monocytes #) system which generated this result tra nsmitted reference range : <=0.8. The reference r leo was not used to int erpret this result as normal/abnormal . [facility] CenterKpifpriUCZYDDGIFL5167-56-19 13:52:00 Test Item Value Reference Range Interpretation Comments Segs (test code = Segs) 92.0 45.0-75.0 H [facility] CenterRcehaopUTMMPINISG3051-18-51 13:52:00 Test Item Value Reference Range Interpretation Comments Lymphocytes (test code = Lymphocytes) 4.9 20.0-40.0 L [facility] CenterWcjrgcwQVHOWJGVCU2166-84-41 13:52:00 Test Item Value Reference Range Interpretation Comments Spherocyte (test code = Rare A Spherocyte) *ABN*(09/18/2011 08:52:00) [facility] CenterZsupvikMJEXSIHUUO5470-90-62 13:52:00 Test Item Value Reference Range Interpretation Comments Large Plt (test code = Slight *ABN*(09/18/2011 A Large Plt) 08:52:00) [facility] CenterTitomckFPJMEGGNQQ4561-29-83 13:52:00 Test Item Value Reference Range Interpretation Comments Microcyte (test code = 1+ *ABN*(09/18/2011 A Microcyte) 08:52:00) [facility] CenterPsdjsnzOSHOMBTDQQ6243-41-15 13:52:00 Test Item Value Reference Range Interpretation Comments Schistocyte (test code = Schistocyte) Rare [facility] CenterXpcsqsrSMGOIJFUZP6353-43-27 13:52:00 Test Item Value Reference Range Interpretation Comments Macrocyte (test code = 1+ *ABN*(09/18/2011 A Macrocyte) 08:52:00) [facility] CenterKyqxasvPCTDFIDIZN1237-17-10 13:52:00 Test Item Value Reference Range Interpretation Comments Lymphocytes # (test code = Lymphocytes 0.6 1.0-5.5 L #) [facility] CenterElouopgHRZYHQSCBP3771-61-72 13:52:00 Test Item Value Reference Range Interpretation Comments Segs-Bands # (test code = Segs-Bands #) 10.8 1.5-8.1 H [facility] CenterCnsnxgfWYJZOQTJDR4024-58-35 13:52:00 Test Item Value Reference Range Interpretation Comments Basophils # (test code 0.0 See_Comment N [Aut omated message] The = Basophils #) system which generated this result tra nsmitted reference range : <=0.2. The reference r leo was not used to int erpret this result as normal/abnormal . [facility]FizyxjfXTMZGWFLUZ9613-17-35 13:52:00 Test Item Value Reference Range Interpretation Comments Anisocyte (test code = 1+ *ABN*(09/18/2011 A Anisocyte) 08:52:00) [facility]woodUuvkpeuCNDAIDYOKO7693-75-92 13:52:00 Test Item Value Reference Range Interpretation Comments CDC-HIV 1/2 Ab (test Negative *NA*(09/18/2011 code = CDC-HIV 1/2 08:52:00) Ab) [facility] GLUCOSE DTYDRZX4673-96-35 17:34:00 Test Item Value Reference Range Interpretation Comments Gluc POC Lifscn (test code = Gluc POC 215 70-99 H Lifscn) [facility] GLUCOSE HUDUPLJ0846-68-77 17:34:00 Test Item Value Reference Range Interpretation Comments Comment1 (test code = Comment1) Notify RN/ [facility] GLUCOSE FYPBJBP4042-08-07 11:43:00 Test Item Value Reference Range Interpretation Comments Comment1 (test code = Comment1) Notify RN/ [facility] GLUCOSE GPYFSNI5751-14-20 11:43:00 Test Item Value Reference Range Interpretation Comments Gluc POC Lifscn (test code = Gluc POC 91 65-110 N Lifscn) [facility] GLUCOSE DIPOING6238-35-64 02:45:00 Test Item Value Reference Range Interpretation Comments Comment1 (test code = Comment1) Notify RN/ [facility] GLUCOSE ISJPKQF9705-23-58 02:45:00 Test Item Value Reference Range Interpretation Comments Gluc POC Lifscn (test code = Gluc POC 148 65-110 H Lifscn) [facility] CenterVtdpasiSKQWXLWDT4479-60-74 08:47:00 Test Item Value Reference Range Interpretation Comments Sodium Lvl (test code = Sodium Lvl) 143 135-145 N [facility] BrownwoodUpmveauRXXKYBSYK2646-71-02 08:47:00 Test Item Value Reference Range Interpretation Comments Glucose Lvl (test code = Glucose Lvl) 105 [facility] BrownwoodRrfnmnvIWZCTCQYS5112-76-19 08:47:00 Test Item Value Reference Range Interpretation Comments CO2 (test code = CO2) 29 24-32 N [facility]TsumakcDIIQDSPSA1551-97-23 08:47:00 Test Item Value Reference Range Interpretation Comments Chloride Lvl (test code = Chloride Lvl) 103 95-109 N [facility]anoNtckfowWTDOEVDEW3760-56-52 08:47:00 Test Item Value Reference Range Interpretation Comments BUN (test code = BUN) 10 7-22 N [facility] PlanoFvaklyaNBLEDJFKU1653-07-92 08:47:00 Test Item Value Reference Range Interpretation Comments Potassium Lvl (test code = Potassium 3.8 3.5-5.1 N Lvl) [facility]anoMlofxinVWHDRFAOE6240-10-57 08:47:00 Test Item Value Reference Range Interpretation Comments Creatinine Lvl (test code = Creatinine 0.6 0.5-1.4 N Lvl) [facility]anoVmcervoKLCEGSASE4993-91-69 08:47:00 Test Item Value Reference Range Interpretation Comments Calcium Lvl (test code = Calcium Lvl) 8.5 8.5-10.5 N [facility] PlanoDcosjusHIEQEHQZK8594-37-51 08:47:00 Test Item Value Reference Range Interpretation Comments AGAP (test code = AGAP) 14.8 10.0-20.0 N [facility] CenterPxaiyvwLZJFCIELDQ5255-48-00 08:47:00 Test Item Value Reference Range Interpretation Comments MCH (test code = MCH) 28.9 pg 27.0-31.0 N [facility] CenterOjhswjxEZGQLXUEEI9297-60-55 08:47:00 Test Item Value Reference Range Interpretation Comments MCV (test code = MCV) 82.1 81.0-99.0 N [facility] CenterEgfgyyqFVZRUNXILD7319-15-99 08:47:00 Test Item Value Reference Range Interpretation Comments Hct (test code = Hct) 25.9 36.0-48.0 L [facility] CenterEsaurgbPWXIFKNKED5583-85-60 08:47:00 Test Item Value Reference Range Interpretation Comments Platelet (test code = Platelet) 233 133-450 N [facility] CenterEhcuztjJPJABZEROG7720-86-10 08:47:00 Test Item Value Reference Range Interpretation Comments RDW (test code = RDW) 14.5 11.5-14.5 N [facility] CenterOabrtlfSKFWSZODNU2939-60-87 08:47:00 Test Item Value Reference Range Interpretation Comments MCHC (test code = MCHC) 35.2 32.0-36.0 N [facility] CenterJwyjjdlCPUOWNVQFE4359-28-08 08:47:00 Test Item Value Reference Range Interpretation Comments Hgb (test code = Hgb) 9.1 12.0-16.0 L [facility] CenterLllysspAJGWMKCQBE6803-58-86 08:47:00 Test Item Value Reference Range Interpretation Comments RBC (test code = RBC) 3.15 4.20-5.40 L [facility] CenterWxtxvtyZYSTNODAPF1106-04-11 08:47:00 Test Item Value Reference Range Interpretation Comments MPV (test code = MPV) 9.0 7.4-10.4 N [facility] CenterKdljnjlQDRPISQRWN2563-34-02 08:47:00 Test Item Value Reference Range Interpretation Comments WBC (test code = WBC) 6.3 3.7-10.4 N [facility] CenterYwphtarIHGNZXSQZZ8172-45-74 08:47:00 Test Item Value Reference Range Interpretation Comments Eosinophils # (test code 0.0 See_Comment N [A utomated message] The = Eosinophils #) system whic h generated this result tra nsmitted reference range : <=0.5. The reference r leo was not used to int erpret this result as normal/abnormal . [facility] CenterKlvkpovUHZLVQQCLI5454-92-25 08:47:00 Test Item Value Reference Range Interpretation Comments Basophils # (test code 0.0 See_Comment N [Aut omated message] The = Basophils #) system which generated this result tra nsmitted reference range : <=0.2. The reference r leo was not used to int erpret this result as normal/abnormal . [facility] CenterBnucjfoINIIUKIZRX5414-59-66 08:47:00 Test Item Value Reference Range Interpretation Comments Segs-Bands # (test code = Segs-Bands #) 3.8 1.5-8.1 N [facility] CenterKtaoqspCURMSQGTHM7998-25-44 08:47:00 Test Item Value Reference Range Interpretation Comments Lymphocytes # (test code = Lymphocytes 2.0 1.0-5.5 N #) [facility] CenterDbvipsdXDYEJOTHXU3451-96-29 08:47:00 Test Item Value Reference Range Interpretation Comments Basophils (test code = 0.5 See_Comment N [Aut omated message] The Basophils) system which ge nerated this result tra nsmitted reference range : <=1.0. The reference r leo was not used to int erpret this result as normal/abnormal . [facility] CenterUqyazniRBRKVQDXJV5122-23-60 08:47:00 Test Item Value Reference Range Interpretation Comments Eosinophils (test code = 0.7 See_Comment N [A utomated message] The Eosinophils) system which ge nerated this result tra nsmitted reference range : <=4.0. The reference r leo was not used to int erpret this result as normal/abnormal . [facility] CenterFtiqvyjSIGIPQLXWS6564-82-70 08:47:00 Test Item Value Reference Range Interpretation Comments Monocytes (test code = Monocytes) 6.2 2.0-12.0 N [facility] CenterWuffmdqOEREWNAJBA2077-73-20 08:47:00 Test Item Value Reference Range Interpretation Comments Segs (test code = Segs) 61.1 45.0-75.0 N [facility] CenterSpipcstNCZXWYNJGH2139-05-69 08:47:00 Test Item Value Reference Range Interpretation Comments Lymphocytes (test code = Lymphocytes) 31.5 20.0-40.0 N [facility] CenterTppszcpKYRMZDLGZY7229-94-84 08:47:00 Test Item Value Reference Range Interpretation Comments Monocytes # (test code 0.4 See_Comment N [Aut omated message] The = Monocytes #) system which generated this result tra nsmitted reference range : <=0.8. The reference r leo was not used to int erpret this result as normal/abnormal . [facility]anoZhasckyXPLCKZSFF9705-19-46 10:54:00 Test Item Value Reference Range Interpretation Comments CO2 (test code = CO2) 27 24-32 N [facility]anoAgsozrqKSJIGBJYS5463-46-19 10:54:00 Test Item Value Reference Range Interpretation Comments Chloride Lvl (test code = Chloride Lvl) 104 95-109 N [facility] PlanoUswziarVVYKARYQG5094-45-11 10:54:00 Test Item Value Reference Range Interpretation Comments Creatinine Lvl (test code = Creatinine 0.5 0.5-1.4 N Lvl) [facility]anoTcvvnhmCHOKFYCML8248-57-56 10:54:00 Test Item Value Reference Range Interpretation Comments BUN (test code = BUN) 10 7-22 N [facility]anoTqhklnwUNTLIJGNI2001-46-82 10:54:00 Test Item Value Reference Range Interpretation Comments Potassium Lvl (test code = Potassium 4.1 3.5-5.1 N Lvl) [facility] PlanoSgnztufEGBTNLXAZ6940-57-47 10:54:00 Test Item Value Reference Range Interpretation Comments Sodium Lvl (test code = Sodium Lvl) 141 135-145 N [facility] PlanoCslaqvqVJHEVIZXH0670-55-29 10:54:00 Test Item Value Reference Range Interpretation Comments Glucose Lvl (test code = Glucose Lvl) 83 [facility] PlanoRagzvrfKQDNDUVHX6211-56-03 10:54:00 Test Item Value Reference Range Interpretation Comments Calcium Lvl (test code = Calcium Lvl) 8.4 8.5-10.5 L [facility] PlanoUlitjzfYWZUCKLPP2861-80-10 10:54:00 Test Item Value Reference Range Interpretation Comments AGAP (test code = AGAP) 14.1 10.0-20.0 N [facility] CenterHpyarazVKGZJROAGX9504-45-65 10:54:00 Test Item Value Reference Range Interpretation Comments Hct (test code = Hct) 35.5 36.0-48.0 L [facility] CenterCuwbketNIKZJVIIBE2850-83-58 10:54:00 Test Item Value Reference Range Interpretation Comments WBC (test code = WBC) 4.7 3.7-10.4 N [facility] CenterYasgkhnIRBFVBTIKC7374-91-83 10:54:00 Test Item Value Reference Range Interpretation Comments MCV (test code = MCV) 92.6 81.0-99.0 N [facility] CenterTntnjusBZWJSDPRMO9417-86-05 10:54:00 Test Item Value Reference Range Interpretation Comments MCH (test code = MCH) 31.4 pg 27.0-31.0 H [facility] CenterVmlzgggBRDKKNIGTC7349-04-09 10:54:00 Test Item Value Reference Range Interpretation Comments RBC (test code = RBC) 3.84 4.20-5.40 L [facility] CenterOtakirsWWVCFVANBH7737-21-91 10:54:00 Test Item Value Reference Range Interpretation Comments Hgb (test code = Hgb) 12.1 12.0-16.0 N [facility] CenterSdeeuukEDFUNZIVYH1984-95-36 10:54:00 Test Item Value Reference Range Interpretation Comments Platelet (test code = Platelet) 287 133-450 N [facility] CenterNltqsluJETZPBCDZP9653-81-36 10:54:00 Test Item Value Reference Range Interpretation Comments RDW (test code = RDW) 12.7 11.5-14.5 N [facility] CenterAyczlblPGZDNFWDQM6050-12-37 10:54:00 Test Item Value Reference Range Interpretation Comments MCHC (test code = MCHC) 33.9 32.0-36.0 N [facility] CenterZatpuleNAJSLNNEIC4934-04-33 10:54:00 Test Item Value Reference Range Interpretation Comments MPV (test code = MPV) 7.2 7.4-10.4 L [facility] CenterOcsqwdtZNQRYINDLK4886-68-00 10:54:00 Test Item Value Reference Range Interpretation Comments INR (test code = INR) 0.95 0.85-1.17 N [facility] CenterBlecbzdAVSARDDJBH9874-01-05 10:54:00 Test Item Value Reference Range Interpretation Comments PT (test code = PT) 12.7 s 12.0-14.7 N [facility] CenterQvfjnitQYXIUCXCUT1319-89-75 10:54:00 Test Item Value Reference Range Interpretation Comments PTT (test code = PTT) 28.5 s 22.9-35.8 N [facility] CenterIqlyakvWIFESUMYCS3389-23-17 10:54:00 Test Item Value Reference Range Interpretation Comments Eosinophils # (test code 0.1 See_Comment N [A utomated message] The = Eosinophils #) system whic h generated this result tra nsmitted reference range : <=0.5. The reference r leo was not used to int erpret this result as normal/abnormal . [facility] CenterHwmbwtqYJEUDDLXYI2591-63-80 10:54:00 Test Item Value Reference Range Interpretation Comments Basophils # (test code 0.0 See_Comment N [Aut omated message] The = Basophils #) system which generated this result tra nsmitted reference range : <=0.2. The reference r leo was not used to int erpret this result as normal/abnormal . [facility] CenterEjgiapaHERXUTYZPC4517-13-33 10:54:00 Test Item Value Reference Range Interpretation Comments Basophils (test code = 0.4 See_Comment N [Aut omated message] The Basophils) system which ge nerated this result tra nsmitted reference range : <=1.0. The reference r leo was not used to int erpret this result as normal/abnormal . [facility] CenterPeyuijmRBLYPUWROT0424-93-68 10:54:00 Test Item Value Reference Range Interpretation Comments Segs-Bands # (test code = Segs-Bands #) 2.1 1.5-8.1 N [facility] CenterZjhxjulWIHAKMRSMZ2143-11-08 10:54:00 Test Item Value Reference Range Interpretation Comments Monocytes (test code = Monocytes) 9.0 2.0-12.0 N [facility] CenterWkjynciHTZIXYQDMR3411-93-11 10:54:00 Test Item Value Reference Range Interpretation Comments Eosinophils (test code = 2.4 See_Comment N [A utomated message] The Eosinophils) system which ge nerated this result tra nsmitted reference range : <=4.0. The reference r leo was not used to int erpret this result as normal/abnormal . [facility] CenterSruoirfKESKWHDOSP0161-17-19 10:54:00 Test Item Value Reference Range Interpretation Comments Monocytes # (test code 0.4 See_Comment N [Aut omated message] The = Monocytes #) system which generated this result tra nsmitted reference range : <=0.8. The reference r leo was not used to int erpret this result as normal/abnormal . [facility] CenterRzfpukrSYOIZZFHMF1317-44-27 10:54:00 Test Item Value Reference Range Interpretation Comments Lymphocytes # (test code = Lymphocytes 2.0 1.0-5.5 N #) [facility] CenterByunibmADJWDFXZKS1063-38-25 10:54:00 Test Item Value Reference Range Interpretation Comments Lymphocytes (test code = Lymphocytes) 42.8 20.0-40.0 H [facility] CenterNyujdqiOOPGKYFWPZ7330-46-71 10:54:00 Test Item Value Reference Range Interpretation Comments Segs (test code = Segs) 45.4 45.0-75.0 N [facility]anoHwfgbkrCRAQNBHSY5304-80-40 10:02:00 Test Item Value Reference Range Interpretation Comments Chloride Lvl (test code = Chloride Lvl) 105 95-109 N [facility] PlanoMjiyjkyMBBQYAIXF8862-92-82 10:02:00 Test Item Value Reference Range Interpretation Comments Potassium Lvl (test code = Potassium 4.1 3.5-5.1 N Lvl) [facility] PlanoFzepfkoWDBXSRCKG5857-01-46 10:02:00 Test Item Value Reference Range Interpretation Comments Sodium Lvl (test code = Sodium Lvl) 143 135-145 N [facility] PlanoFkcxgshCCNIHLRHN2309-58-72 10:02:00 Test Item Value Reference Range Interpretation Comments CO2 (test code = CO2) 29 24-32 N [facility] PlanoTbyjnmqBVXKZGHAW0399-07-15 10:02:00 Test Item Value Reference Range Interpretation Comments Calcium Lvl (test code = Calcium Lvl) 8.7 8.5-10.5 N [facility] PlanoSlakwsiBVFIDMFNR3408-24-98 10:02:00 Test Item Value Reference Range Interpretation Comments BUN (test code = BUN) 6 7-22 L [facility] PlanoIussjkfVXLXYQGWH5079-05-56 10:02:00 Test Item Value Reference Range Interpretation Comments Creatinine Lvl (test code = Creatinine 0.6 0.5-1.4 N Lvl) [facility] PlanoHfegenyQTWKSJQSE3806-37-41 10:02:00 Test Item Value Reference Range Interpretation Comments Glucose Lvl (test code = Glucose Lvl) 118 [facility] PlanoYlkxamyAJWGNKLGL4048-42-47 10:02:00 Test Item Value Reference Range Interpretation Comments AGAP (test code = AGAP) 13.1 10.0-20.0 N [facility] CenterAvssklbGQHIXIICXC9877-29-32 10:02:00 Test Item Value Reference Range Interpretation Comments Basophils # (test code 0.0 See_Comment N [Aut omated message] The = Basophils #) system which generated this result tra nsmitted reference range : <=0.2. The reference r leo was not used to int erpret this result as normal/abnormal . [facility] CenterYrtzdgwAXEPHGFOJD0288-23-55 10:02:00 Test Item Value Reference Range Interpretation Comments Monocytes # (test code 0.3 See_Comment N [Aut omated message] The = Monocytes #) system which generated this result tra nsmitted reference range : <=0.8. The reference r leo was not used to int erpret this result as normal/abnormal . [facility] CenterDnulwfgKFEZDYTXXU6293-21-68 10:02:00 Test Item Value Reference Range Interpretation Comments Eosinophils # (test code 0.1 See_Comment N [A utomated message] The = Eosinophils #) system whic h generated this result tra nsmitted reference range : <=0.5. The reference r leo was not used to int erpret this result as normal/abnormal . [facility] CenterUghfaeyDOMLPHLEFO6176-37-42 10:02:00 Test Item Value Reference Range Interpretation Comments Segs-Bands # (test code = Segs-Bands #) 2.8 1.5-8.1 N [facility] CenterIknymmsTVDJFSNXID7618-36-45 10:02:00 Test Item Value Reference Range Interpretation Comments Lymphocytes # (test code = Lymphocytes 1.7 1.0-5.5 N #) [facility] CenterNmthmuwGNMXMKSOIT5593-13-05 10:02:00 Test Item Value Reference Range Interpretation Comments Basophils (test code = 0.6 See_Comment N [Aut omated message] The Basophils) system which ge nerated this result tra nsmitted reference range : <=1.0. The reference r leo was not used to int erpret this result as normal/abnormal . [facility] CenterXmpkqgcPSHPGEMVMC7995-03-53 10:02:00 Test Item Value Reference Range Interpretation Comments Monocytes (test code = Monocytes) 6.9 2.0-12.0 N [facility] CenterQvanxrtENOIVGJGOM4853-93-45 10:02:00 Test Item Value Reference Range Interpretation Comments Eosinophils (test code = 2.0 See_Comment N [A utomated message] The Eosinophils) system which ge nerated this result tra nsmitted reference range : <=4.0. The reference r leo was not used to int erpret this result as normal/abnormal . [facility] CenterFnprdoxIYLQGBLTAN8585-77-62 10:02:00 Test Item Value Reference Range Interpretation Comments Segs (test code = Segs) 55.8 45.0-75.0 N [facility] CenterGpalbkiCBGPPSDHWU7093-73-76 10:02:00 Test Item Value Reference Range Interpretation Comments Lymphocytes (test code = Lymphocytes) 34.7 20.0-40.0 N [facility] CenterKtgjwylWCWEFRRNDZ8744-15-28 10:02:00 Test Item Value Reference Range Interpretation Comments PTT (test code = PTT) 32.2 s 22.9-35.8 N [facility] CenterNnwwbznGBMNJCJJOK6924-45-64 10:02:00 Test Item Value Reference Range Interpretation Comments PT (test code = PT) 13.3 s 12.0-14.7 N [facility] CenterThxwnqcXNTNFQKQZZ2966-70-21 10:02:00 Test Item Value Reference Range Interpretation Comments INR (test code = INR) 1.01 0.85-1.17 N [facility] CenterTldfcpuZQHTYVEYQQ1289-60-29 10:02:00 Test Item Value Reference Range Interpretation Comments Hct (test code = Hct) 27.5 36.0-48.0 L [facility] CenterPfkjvarAOSVLVOQUI5712-38-99 10:02:00 Test Item Value Reference Range Interpretation Comments RBC (test code = RBC) 3.34 4.20-5.40 L [facility] CenterRjyzhimBCQRQASZYC6723-90-23 10:02:00 Test Item Value Reference Range Interpretation Comments Hgb (test code = Hgb) 9.7 12.0-16.0 L [facility] CenterGmcpdcuEJWAUZXUDH7127-28-78 10:02:00 Test Item Value Reference Range Interpretation Comments WBC (test code = WBC) 5.0 3.7-10.4 N [facility] CenterDeodaonUSBVDMHYWT5010-54-02 10:02:00 Test Item Value Reference Range Interpretation Comments MPV (test code = MPV) 9.2 7.4-10.4 N [facility] CenterHgtkjviBUITULSHFJ9803-78-72 10:02:00 Test Item Value Reference Range Interpretation Comments Platelet (test code = Platelet) 240 133-450 N [facility] CenterBgjpnkgJYVHXQJPQD4647-37-82 10:02:00 Test Item Value Reference Range Interpretation Comments RDW (test code = RDW) 14.3 11.5-14.5 N [facility] CenterVnyunmoGDHCBFOXPY6931-32-09 10:02:00 Test Item Value Reference Range Interpretation Comments MCHC (test code = MCHC) 35.2 32.0-36.0 N [facility] CenterHoyccqxEFICOJHIHI9346-29-07 10:02:00 Test Item Value Reference Range Interpretation Comments MCH (test code = MCH) 28.9 pg 27.0-31.0 N [facility] CenterYcuyvxfLMZYEMQAZK1237-82-83 10:02:00 Test Item Value Reference Range Interpretation Comments MCV (test code = MCV) 82.1 81.0-99.0 N [facility]anoUnwgpioPGQMHUEVN6645-10-72 09:24:00 Test Item Value Reference Range Interpretation Comments Magnesium Lvl (test code = Magnesium 2.1 1.8-2.4 N Lvl) [facility]QbgwaefQtzyoszfjozi3940-95-97 00:32:00 Test Item Value Reference Range Interpretation Comments Culture: Aspirate/Body Fluid/Tissue (test code = Culture: Aspirate/Body Fluid/Tissue) [facility]neCsahlnxFniwsyaxmxqf7457-27-24 00:32:00 Test Item Value Reference Range Interpretation Comments Culture: Anaerobic (test code = Culture: Anaerobic) [facility] PlanoTulwppsAAZYSWYTG2045-41-11 17:10:00 Test Item Value Reference Range Interpretation Comments Temp Roberth (test code = Temp Roberth) 37.0 [facility]anoProvbkdVSLXMNPNH9190-73-37 17:10:00 Test Item Value Reference Range Interpretation Comments O2 Sat Roberth (test code = O2 Sat Roberth) 27.0 40.0-70.0 L [facility]anoJbvcfkaKXIAYEOQC7688-35-32 17:10:00 Test Item Value Reference Range Interpretation Comments pCO2 Roberth (test code = pCO2 Roberth) 47 38-52 N [facility] PlanoVpaudraLZZNLGWWD7913-72-32 17:10:00 Test Item Value Reference Range Interpretation Comments pH Roberth (test code = pH Roberth) 7.37 7.28-7.42 N [facility] PlanoQcvlocvGUFNETZGN5102-86-46 17:10:00 Test Item Value Reference Range Interpretation Comments BE Roberth (test code = 1 See_Comment N [Automa rohit message] The BE Roberth) system which ge nerated this result transmit rohit reference range : <=2. The reference range was not used to interpr et this result as reji l/abnormal. [facility] PlanoFrrkddtSFERBTASE6868-17-07 17:10:00 Test Item Value Reference Range Interpretation Comments HCO3 Roberth (test code = HCO3 Roberth) 27.2 22.0-26.0 H [facility] PlanoQgujamhKYLMASOBP1482-83-10 17:10:00 Test Item Value Reference Range Interpretation Comments pO2 Roberth (test code = pO2 Roberth) 19 20-49 L [facility]DibshgaGqecqdkexwqs5157-17-53 14:18:00 Test Item Value Reference Range Interpretation Comments Culture: Blood (test code = Culture: Blood) [facility]neQjovtamCgynjbryezkz4159-31-06 14:18:00 Test Item Value Reference Range Interpretation Comments Culture: Wound/Abscess w/Gram Stain (test code = Culture: Wound/Abscess w/Gram Stain) [facility] PlanoBpjonplLVAABCTUH8552-48-34 13:09:00 Test Item Value Reference Range Interpretation Comments Lactic Acid Lvl (test code = Lactic 1.0 0.5-2.2 N Acid Lvl) [facility] PlanoZvzqjtzRDZZUCXXG3130-96-29 12:20:00 Test Item Value Reference Range Interpretation Comments U Preg (test code = U Negative (09/01/2011 N Preg) 07:20:00) [facility]KwmjpoeKGDNWPTTOL5911-36-31 12:20:00 Test Item Value Reference Range Interpretation Comments UA Sq Epi (test code Occasional /LPF N = UA Sq Epi) (09/01/2011 07:20:00) [facility]landFgzddnlCKDOEDGVEQ2683-51-29 12:20:00 Test Item Value Reference Range Interpretation Comments UA Leuk Est (test Negative (09/01/2011 N code = UA Leuk Est) 07:20:00) [facility]landVnssmpmNLGYDEACLO8087-99-40 12:20:00 Test Item Value Reference Range Interpretation Comments UA Nitrite (test code Negative (09/01/2011 N = UA Nitrite) 07:20:00) [facility]landLphuzjrHKFKURMKCW7609-66-90 12:20:00 Test Item Value Reference Range Interpretation Comments UA Urobilinogen (test code = UA 0.2 0.1-1.0 N Urobilinogen) [facility]landGbqlmldGQTQEDSOPT2539-94-61 12:20:00 Test Item Value Reference Range Interpretation Comments UA Blood (test code = Negative (09/01/2011 N UA Blood) 07:20:00) [facility]landPkjmxypJNQYBICPZX3382-25-68 12:20:00 Test Item Value Reference Range Interpretation Comments UA Ketones (test code = >=80 mg/dL A UA Ketones) *ABN*(09/01/2011 07:20:00) [facility]XrjveqzXDRLJJXZZK1820-38-93 12:20:00 Test Item Value Reference Range Interpretation Comments UA Protein (test code Negative (09/01/2011 N = UA Protein) 07:20:00) [facility]landEzbthhgBRLWROYNEH7379-80-43 12:20:00 Test Item Value Reference Range Interpretation Comments UA pH (test code = UA pH) 6.0 1 5.0-8.0 N [facility]landWfsaqrbDQDJSVPXJT7188-86-61 12:20:00 Test Item Value Reference Range Interpretation Comments UA Bili (test code = Negative (09/01/2011 N UA Bili) 07:20:00) [facility]landOmfjndySLODAVRUUO5515-54-74 12:20:00 Test Item Value Reference Range Interpretation Comments UA Glucose (test code = >=1000 mg/dL A UA Glucose) *ABN*(09/01/2011 07:20:00) [facility] DallasRpjgolcAVDUDTQKGG4489-03-09 12:20:00 Test Item Value Reference Range Interpretation Comments UA Spec Grav (test code = UA Spec 1.035 1 H Grav) [facility]landXyomzalEOFDAOGQWO6810-24-07 12:20:00 Test Item Value Reference Range Interpretation Comments UA Turbidity (test code = Clear (09/01/2011 N UA Turbidity) 07:20:00) [facility]landIvgqhtcYLLCFVJNXK6475-94-37 12:20:00 Test Item Value Reference Range Interpretation Comments UA Color (test code = Yellow *NA*(09/01/2011 UA Color) 07:20:00) [facility]anoDxmhojdDAWMANUEH4105-31-52 08:00:00 Test Item Value Reference Range Interpretation Comments Lactic Acid Lvl (test code = Lactic 2.8 0.5-2.2 H Acid Lvl) [facility]anoPsuwykzLAMODFJGN1147-66-15 07:47:00 Test Item Value Reference Range Interpretation Comments Magnesium Lvl (test code = Magnesium 1.5 1.8-2.4 L Lvl) [facility] CenterEcxdekkCQOGZDWNYS6717-19-03 07:47:00 Test Item Value Reference Range Interpretation Comments Polychrom (test code = Slight (09/01/2011 N Polychrom) 02:47:00) [facility] CenterSzrpmvxLVMCHFBBWB2111-46-29 07:47:00 Test Item Value Reference Range Interpretation Comments Anisocyte (test code = 1+ *ABN*(09/01/2011 A Anisocyte) 02:47:00) [facility] CenterUqhaxxqSJYMLEAJHL9131-38-90 07:47:00 Test Item Value Reference Range Interpretation Comments Large Plt (test code = Slight *ABN*(09/01/2011 A Large Plt) 02:47:00) [facility] CenterYhflbflAITZGWXMVK8536-89-23 07:47:00 Test Item Value Reference Range Interpretation Comments Tear Cell (test code = Tear Cell) Occasional [facility] CenterHxlrvqnLEFPKABXAY4426-42-96 07:47:00 Test Item Value Reference Range Interpretation Comments Elliptocyte (test code = Slight A Elliptocyte) *ABN*(09/01/2011 02:47:00) [facility] GLUCOSE MPWDCOV5358-24-43 17:02:00 Test Item Value Reference Range Interpretation Comments Comment1 (test code = Comment1) Notify RN/MD [facility] GLUCOSE HZMPTVU4013-53-10 17:02:00 Test Item Value Reference Range Interpretation Comments Gluc POC Lifscn (test code = Gluc POC 134 65-110 H Lifscn) [facility] GLUCOSE SSXQPUU7333-79-16 13:45:00 Test Item Value Reference Range Interpretation Comments Gluc POC Lifscn (test code = Gluc POC 182 65-110 H Lifscn) [facility] GLUCOSE GEYSBCQ3007-69-89 13:45:00 Test Item Value Reference Range Interpretation Comments Comment1 (test code = Comment1) Notify RN/ [facility]anoRpizncmQNUMMOYPE7344-24-65 10:22:00 Test Item Value Reference Range Interpretation Comments Phosphorus (test code = Phosphorus) 3.0 2.5-4.5 N [facility]anoMpgjrgxMZKBYILRM1069-03-21 10:22:00 Test Item Value Reference Range Interpretation Comments Magnesium Lvl (test code = Magnesium 1.8 1.8-2.4 N Lvl) [facility]anoKvsirebBQDFUBXLN1698-68-04 10:22:00 Test Item Value Reference Range Interpretation Comments Chloride Lvl (test code = Chloride Lvl) 107 95-109 N [facility] PlanoFtwxwbrFQAFTJZQL4408-04-89 10:22:00 Test Item Value Reference Range Interpretation Comments Potassium Lvl (test code = Potassium 3.0 3.5-5.1 A Lvl) [facility]anoEjefyrjNSAMLOBIZ0355-40-03 10:22:00 Test Item Value Reference Range Interpretation Comments Sodium Lvl (test code = Sodium Lvl) 141 135-145 N [facility] PlanoYuvkmcuCDSZGHUHO1053-01-33 10:22:00 Test Item Value Reference Range Interpretation Comments Creatinine Lvl (test code = Creatinine 0.6 0.5-1.4 N Lvl) [facility]anoKvytgfyOXQKWWGCS4035-44-36 10:22:00 Test Item Value Reference Range Interpretation Comments CO2 (test code = CO2) 23 24-32 L [facility] PlanoZcdznfnZVOYDDNNQ0920-32-64 10:22:00 Test Item Value Reference Range Interpretation Comments Calcium Lvl (test code = Calcium Lvl) 7.3 8.5-10.5 L [facility] PlanoLtbmmruXAYAHIGVB0387-81-81 10:22:00 Test Item Value Reference Range Interpretation Comments Glucose Lvl (test code = Glucose Lvl) 136 [facility] PlanoHqifdyvDPNXXDQNE6348-83-32 10:22:00 Test Item Value Reference Range Interpretation Comments AGAP (test code = AGAP) 14.0 10.0-20.0 N [facility] PlanoJciyanoUOROADOPV1203-27-16 10:22:00 Test Item Value Reference Range Interpretation Comments BUN (test code = BUN) 5 7-22 L [facility] CenterLwoyogkHUATUUISUW1717-46-55 10:22:00 Test Item Value Reference Range Interpretation Comments Segs (test code = Segs) 69.6 45.0-75.0 N [facility] CenterQjtahjjLBIADXGBXN0878-23-75 10:22:00 Test Item Value Reference Range Interpretation Comments Lymphocytes (test code = Lymphocytes) 21.5 20.0-40.0 N [facility] CenterVucqljtVAIJVMVJVR4956-87-85 10:22:00 Test Item Value Reference Range Interpretation Comments Monocytes (test code = Monocytes) 7.6 2.0-12.0 N [facility] CenterNsiembyEJQLHHGSSP8894-81-76 10:22:00 Test Item Value Reference Range Interpretation Comments Eosinophils (test code = 1.0 See_Comment N [A utomated message] The Eosinophils) system which ge nerated this result tra nsmitted reference range : <=4.0. The reference r leo was not used to int erpret this result as normal/abnormal . [facility] CenterPvlnnbrWETJVKUMCA5477-96-68 10:22:00 Test Item Value Reference Range Interpretation Comments Basophils (test code = 0.3 See_Comment N [Aut omated message] The Basophils) system which ge nerated this result tra nsmitted reference range : <=1.0. The reference r leo was not used to int erpret this result as normal/abnormal . [facility] CenterSizwqqsUVDEKPQYZN4863-24-37 10:22:00 Test Item Value Reference Range Interpretation Comments Segs-Bands # (test code = Segs-Bands #) 4.8 1.5-8.1 N [facility] CenterIdgthblJVRBPVRUUF2607-87-14 10:22:00 Test Item Value Reference Range Interpretation Comments Eosinophils # (test code 0.1 See_Comment N [A utomated message] The = Eosinophils #) system whic h generated this result tra nsmitted reference range : <=0.5. The reference r leo was not used to int erpret this result as normal/abnormal . [facility] CenterGucnnsrAKNCKHSYJD7993-05-28 10:22:00 Test Item Value Reference Range Interpretation Comments Lymphocytes # (test code = Lymphocytes 1.5 1.0-5.5 N #) [facility] CenterYaubadoFDPZCBMXSU9689-84-83 10:22:00 Test Item Value Reference Range Interpretation Comments Monocytes # (test code 0.5 See_Comment N [Aut omated message] The = Monocytes #) system which generated this result tra nsmitted reference range : <=0.8. The reference r leo was not used to int erpret this result as normal/abnormal . [facility] CenterQfemsqbGRWCRRFPZQ6720-30-52 10:22:00 Test Item Value Reference Range Interpretation Comments Basophils # (test code 0.0 See_Comment N [Aut omated message] The = Basophils #) system which generated this result tra nsmitted reference range : <=0.2. The reference r leo was not used to int erpret this result as normal/abnormal . [facility] CenterXyorieuLBFWFKLTHE2082-24-03 10:22:00 Test Item Value Reference Range Interpretation Comments MPV (test code = MPV) 11.0 7.4-10.4 H [facility] CenterEzrjspnIDATXWABXQ5269-53-94 10:22:00 Test Item Value Reference Range Interpretation Comments Platelet (test code = Platelet) 161 133-450 N [facility] CenterYufqxnmFCGOEXRNQO1594-36-29 10:22:00 Test Item Value Reference Range Interpretation Comments MCH (test code = MCH) 29.6 pg 27.0-31.0 N [facility] CenterEcsutnaROSJBPGBDN5351-46-01 10:22:00 Test Item Value Reference Range Interpretation Comments MCHC (test code = MCHC) 35.4 32.0-36.0 N [facility] CenterNugplmeVPABWKQOHQ1506-39-51 10:22:00 Test Item Value Reference Range Interpretation Comments RDW (test code = RDW) 14.1 11.5-14.5 N [facility] CenterHlwsolrFOFUVMZCQO3465-24-85 10:22:00 Test Item Value Reference Range Interpretation Comments WBC (test code = WBC) 6.8 3.7-10.4 N [facility] CenterBrhmctbTHREIPKUQQ1232-11-90 10:22:00 Test Item Value Reference Range Interpretation Comments MCV (test code = MCV) 83.5 81.0-99.0 N [facility] CenterEghhenpRAAWGMVZDL8409-88-02 10:22:00 Test Item Value Reference Range Interpretation Comments RBC (test code = RBC) 4.44 4.20-5.40 N [facility] CenterVhoqkaqMUJLOZKJDW5822-30-54 10:22:00 Test Item Value Reference Range Interpretation Comments Hgb (test code = Hgb) 13.1 12.0-16.0 N [facility] CenterKjiahrcKVKSPIMCGY9218-28-55 10:22:00 Test Item Value Reference Range Interpretation Comments Hct (test code = Hct) 37.1 36.0-48.0 N [facility] GLUCOSE VMOKTCA8052-21-06 02:20:00 Test Item Value Reference Range Interpretation Comments Comment1 (test code = Comment1) Notify RN/MD [facility] GLUCOSE QWTQQHY3074-34-86 02:20:00 Test Item Value Reference Range Interpretation Comments Gluc POC Lifscn (test code = Gluc POC 332 65-110 H Lifscn) [facility]anoQlqsshlCTAAZKUGR6029-10-90 09:47:00 Test Item Value Reference Range Interpretation Comments Phosphorus (test code = Phosphorus) 2.5 2.5-4.5 N [facility] PlanoZsgrivgWHNMPRBED0608-53-67 09:47:00 Test Item Value Reference Range Interpretation Comments Glucose Lvl (test code = Glucose Lvl) 201 [facility] PlanoXnbqxzjKSAKYVKQL8760-05-16 09:47:00 Test Item Value Reference Range Interpretation Comments BUN (test code = BUN) 7 7-22 N [facility] PlanoAukshbsGEFRZIZXL5878-98-51 09:47:00 Test Item Value Reference Range Interpretation Comments CO2 (test code = CO2) 19 24-32 L [facility] PlanoBgsupcrYVZSATBMW8479-47-44 09:47:00 Test Item Value Reference Range Interpretation Comments Creatinine Lvl (test code = Creatinine 0.3 0.5-1.4 L Lvl) [facility] PlanoQsubuuqXAXIUNHUX6443-09-58 09:47:00 Test Item Value Reference Range Interpretation Comments Sodium Lvl (test code = Sodium Lvl) 137 135-145 N [facility] PlanoZnlzcpnTDPGQBQKK2899-39-81 09:47:00 Test Item Value Reference Range Interpretation Comments Chloride Lvl (test code = Chloride Lvl) 103 95-109 N [facility] PlanoKtsmeqlDJCPAHHUA3085-20-38 09:47:00 Test Item Value Reference Range Interpretation Comments Potassium Lvl (test code = Potassium 3.6 3.5-5.1 N Lvl) [facility] PlanoIanwdyhWZFUGBXTS8123-43-37 09:47:00 Test Item Value Reference Range Interpretation Comments Calcium Lvl (test code = Calcium Lvl) 7.9 8.5-10.5 L [facility] PlanoQihqlyuIULAENDBQ2346-44-64 09:47:00 Test Item Value Reference Range Interpretation Comments AGAP (test code = AGAP) 18.6 10.0-20.0 N [facility] PlanoIrpuuveSKPITYGME7475-37-66 09:47:00 Test Item Value Reference Range Interpretation Comments Magnesium Lvl (test code = Magnesium 1.6 1.8-2.4 L Lvl) [facility] CenterCydpncgPEUDRYIDOR0493-94-87 09:47:00 Test Item Value Reference Range Interpretation Comments Basophils # (test code 0.0 See_Comment N [Aut omated message] The = Basophils #) system which generated this result tra nsmitted reference range : <=0.2. The reference r leo was not used to int erpret this result as normal/abnormal . [facility] CenterUomsnptRVUFCOQYVQ5083-25-37 09:47:00 Test Item Value Reference Range Interpretation Comments Eosinophils (test code = 0.4 See_Comment N [A utomated message] The Eosinophils) system which ge nerated this result tra nsmitted reference range : <=4.0. The reference r leo was not used to int erpret this result as normal/abnormal . [facility] CenterGnmqzyqXDRGTOBMMW8856-77-41 09:47:00 Test Item Value Reference Range Interpretation Comments Basophils (test code = 0.5 See_Comment N [Aut omated message] The Basophils) system which ge nerated this result tra nsmitted reference range : <=1.0. The reference r leo was not used to int erpret this result as normal/abnormal . [facility] CenterHrhicjjRDVZQVTQXB9766-28-73 09:47:00 Test Item Value Reference Range Interpretation Comments Segs-Bands # (test code = Segs-Bands #) 5.9 1.5-8.1 N [facility] CenterEnhggdzBIHYPWCGKI8791-93-24 09:47:00 Test Item Value Reference Range Interpretation Comments Lymphocytes # (test code = Lymphocytes 1.2 1.0-5.5 N #) [facility] CenterUxakaafSWNJOCGJLT7840-63-20 09:47:00 Test Item Value Reference Range Interpretation Comments Monocytes # (test code 0.5 See_Comment N [Aut omated message] The = Monocytes #) system which generated this result tra nsmitted reference range : <=0.8. The reference r leo was not used to int erpret this result as normal/abnormal . [facility] CenterOvdhgbaGRWMZFAMMH3941-11-55 09:47:00 Test Item Value Reference Range Interpretation Comments Eosinophils # (test code 0.0 See_Comment N [A utomated message] The = Eosinophils #) system whic h generated this result tra nsmitted reference range : <=0.5. The reference r leo was not used to int erpret this result as normal/abnormal . [facility] CenterNedkkynHBWQKWFXPZ7706-71-63 09:47:00 Test Item Value Reference Range Interpretation Comments Segs (test code = Segs) 76.9 45.0-75.0 H [facility] CenterYyewzjrCHJWWQKOBO9952-91-94 09:47:00 Test Item Value Reference Range Interpretation Comments Lymphocytes (test code = Lymphocytes) 15.9 20.0-40.0 L [facility] CenterDejbiylPAFJBGPZFF6044-12-90 09:47:00 Test Item Value Reference Range Interpretation Comments Monocytes (test code = Monocytes) 6.3 2.0-12.0 N [facility] CenterMstnrbuVDAKTAHDHR4854-94-20 09:47:00 Test Item Value Reference Range Interpretation Comments MCV (test code = MCV) 82.8 81.0-99.0 N [facility] CenterIzqaoudAFNSXSMVRX3851-97-35 09:47:00 Test Item Value Reference Range Interpretation Comments Hct (test code = Hct) 39.7 36.0-48.0 N [facility] CenterGruwvwoMQJEVXWKQU0460-72-72 09:47:00 Test Item Value Reference Range Interpretation Comments MCH (test code = MCH) 29.1 pg 27.0-31.0 N [facility] CenterSrkgzlbERPDSWRPIR2676-29-64 09:47:00 Test Item Value Reference Range Interpretation Comments Hgb (test code = Hgb) 14.0 12.0-16.0 N [facility] CenterMgtopihNHFIPDXSSE8942-82-48 09:47:00 Test Item Value Reference Range Interpretation Comments MCHC (test code = MCHC) 35.2 32.0-36.0 N [facility] CenterHusrutpVWDGIWKZMD5206-51-46 09:47:00 Test Item Value Reference Range Interpretation Comments RDW (test code = RDW) 13.9 11.5-14.5 N [facility] CenterXbtgtnwGQFLUVXSDW9798-96-86 09:47:00 Test Item Value Reference Range Interpretation Comments Platelet (test code = Platelet) 160 133-450 N [facility] CenterCvnpnkeQWJQVHLBJM6714-89-88 09:47:00 Test Item Value Reference Range Interpretation Comments MPV (test code = MPV) 11.9 7.4-10.4 H [facility] CenterStegddrNUDNQJEVCY8130-95-58 09:47:00 Test Item Value Reference Range Interpretation Comments WBC (test code = WBC) 7.7 3.7-10.4 N [facility] CenterPfdksxfPMQKYSEZSN3050-94-55 09:47:00 Test Item Value Reference Range Interpretation Comments RBC (test code = RBC) 4.80 4.20-5.40 N [facility]anoSxwzjudOBGWYLSBG1357-58-17 10:28:00 Test Item Value Reference Range Interpretation Comments Phosphorus (test code = Phosphorus) 2.6 2.5-4.5 N [facility] PlanoTbvmaiwIVECYTQLZ7015-99-14 10:28:00 Test Item Value Reference Range Interpretation Comments Magnesium Lvl (test code = Magnesium 1.8 1.8-2.4 N Lvl) [facility]anoWebzhjjQEYTNOGJE8145-26-18 10:28:00 Test Item Value Reference Range Interpretation Comments Potassium Lvl (test code = Potassium 3.7 3.5-5.1 N Lvl) [facility] PlanoLtjoytjZVGBEICSV4875-74-70 10:28:00 Test Item Value Reference Range Interpretation Comments Sodium Lvl (test code = Sodium Lvl) 137 135-145 N [facility] PlanoYllgdmfDIXZZXFMJ0468-21-28 10:28:00 Test Item Value Reference Range Interpretation Comments Creatinine Lvl (test code = Creatinine 0.6 0.5-1.4 N Lvl) [facility] PlanoJgdjxnoHJAEAZJOG7403-46-70 10:28:00 Test Item Value Reference Range Interpretation Comments BUN (test code = BUN) 16 7-22 N [facility] PlanoXxqknyuOBPYNFSMP6423-54-31 10:28:00 Test Item Value Reference Range Interpretation Comments Glucose Lvl (test code = Glucose Lvl) 200 [facility] PlanoTkzgcxyHJZFSRLFR5253-84-02 10:28:00 Test Item Value Reference Range Interpretation Comments Calcium Lvl (test code = Calcium Lvl) 8.3 8.5-10.5 L [facility] PlanoRtciceiQBIWBSILY9761-08-76 10:28:00 Test Item Value Reference Range Interpretation Comments AGAP (test code = AGAP) 19.7 10.0-20.0 N [facility] PlanoKuhhlxbZXDFPUFGU1219-95-51 10:28:00 Test Item Value Reference Range Interpretation Comments Chloride Lvl (test code = Chloride Lvl) 99 95-109 N [facility] PlanoGtxchauQSKKFGFPJ2395-35-65 10:28:00 Test Item Value Reference Range Interpretation Comments CO2 (test code = CO2) 22 24-32 L [facility] CenterLssazwpIAULTAURMW7427-66-72 10:28:00 Test Item Value Reference Range Interpretation Comments Platelet (test code = Platelet) 172 133-450 N [facility] CenterPcbyilvKVBELCNNME3017-84-73 10:28:00 Test Item Value Reference Range Interpretation Comments MPV (test code = MPV) 12.0 7.4-10.4 H [facility] CenterFaenwgzTVXNCSXQAC8087-04-49 10:28:00 Test Item Value Reference Range Interpretation Comments WBC (test code = WBC) 7.3 3.7-10.4 N [facility] CenterXhcbzxxCHKCOLCIMQ9418-27-48 10:28:00 Test Item Value Reference Range Interpretation Comments RDW (test code = RDW) 14.6 11.5-14.5 H [facility] CenterHfkmysdZDDAIXVRQN1721-38-53 10:28:00 Test Item Value Reference Range Interpretation Comments MCHC (test code = MCHC) 35.0 32.0-36.0 N [facility] CenterKiobtziCUGECHETUB4985-83-46 10:28:00 Test Item Value Reference Range Interpretation Comments RBC (test code = RBC) 4.54 4.20-5.40 N [facility] CenterZsznxovCIKCKSZNKG0431-65-16 10:28:00 Test Item Value Reference Range Interpretation Comments Hct (test code = Hct) 37.6 36.0-48.0 N [facility] CenterOjnzyrnTARFQIRJKT3220-72-70 10:28:00 Test Item Value Reference Range Interpretation Comments MCV (test code = MCV) 82.9 81.0-99.0 N [facility] CenterMzinsiaQTOVVLOQTA5292-15-93 10:28:00 Test Item Value Reference Range Interpretation Comments MCH (test code = MCH) 29.0 pg 27.0-31.0 N [facility] CenterYypuimsJYVREHLTMZ6567-14-51 10:28:00 Test Item Value Reference Range Interpretation Comments Hgb (test code = Hgb) 13.2 12.0-16.0 N [facility] CenterUiynfikYXXIDOZDLX4579-38-77 10:28:00 Test Item Value Reference Range Interpretation Comments Elliptocyte (test code = Slight A Elliptocyte) *ABN*(08/21/2011 04:28:00) [facility] CenterXumuobiMRCYFOVZXL7627-80-82 10:28:00 Test Item Value Reference Range Interpretation Comments Polychrom (test code = Slight (08/21/2011 N Polychrom) 04:28:00) [facility] CenterHcrhvngWWGFXYMMRI5491-56-18 10:28:00 Test Item Value Reference Range Interpretation Comments Basophils # (test code 0.0 See_Comment N [Aut omated message] The = Basophils #) system which generated this result tra nsmitted reference range : <=0.2. The reference r leo was not used to int erpret this result as normal/abnormal . [facility] CenterGlvluvgRIMCWVMQVO7429-53-37 10:28:00 Test Item Value Reference Range Interpretation Comments Hypochrom (test code = Slight (08/21/2011 N Hypochrom) 04:28:00) [facility] CenterKuzgvnzJAZRLIFYWE5973-55-76 10:28:00 Test Item Value Reference Range Interpretation Comments Monocytes # (test code 0.6 See_Comment N [Aut omated message] The = Monocytes #) system which generated this result tra nsmitted reference range : <=0.8. The reference r leo was not used to int erpret this result as normal/abnormal . [facility] CenterXsguinkFSHRTCWTDF4606-90-12 10:28:00 Test Item Value Reference Range Interpretation Comments Eosinophils # (test code 0.0 See_Comment N [A utomated message] The = Eosinophils #) system whic h generated this result tra nsmitted reference range : <=0.5. The reference r leo was not used to int erpret this result as normal/abnormal . [facility] CenterHotjfraHJCWFDQUNT9497-76-60 10:28:00 Test Item Value Reference Range Interpretation Comments Segs-Bands # (test code = Segs-Bands #) 5.3 1.5-8.1 N [facility] CenterLbzrnweXPCYWXZSEV1007-79-99 10:28:00 Test Item Value Reference Range Interpretation Comments Lymphocytes # (test code = Lymphocytes 1.3 1.0-5.5 N #) [facility] CenterVwejncgXWEBSNCMSM9640-46-54 10:28:00 Test Item Value Reference Range Interpretation Comments Basophils (test code = 0.5 See_Comment N [Aut omated message] The Basophils) system which ge nerated this result tra nsmitted reference range : <=1.0. The reference r elo was not used to int erpret this result as normal/abnormal . [facility] CenterUmjoupxTLQQTDGSNS2295-55-77 10:28:00 Test Item Value Reference Range Interpretation Comments Monocytes (test code = Monocytes) 8.5 2.0-12.0 N [facility] CenterWhlzrdwTEYJKMLQGC9340-86-44 10:28:00 Test Item Value Reference Range Interpretation Comments Eosinophils (test code = 0.3 See_Comment N [A utomated message] The Eosinophils) system which ge nerated this result tra nsmitted reference range : <=4.0. The reference r leo was not used to int erpret this result as normal/abnormal . [facility] CenterRmsichwVYLTRAUBAS1534-09-63 10:28:00 Test Item Value Reference Range Interpretation Comments Lymphocytes (test code = Lymphocytes) 17.3 20.0-40.0 L [facility] CenterPhfscxwPGKTKROQUJ1759-16-83 10:28:00 Test Item Value Reference Range Interpretation Comments Segs (test code = Segs) 73.4 45.0-75.0 N [facility] GLUCOSE KUABIOW4513-35-69 07:47:00 Test Item Value Reference Range Interpretation Comments Comment2 (test code = Comment2) [facility] w/[facility]DnrbfknNMEJGVZHZ7858-53-26 21:58:00 Test Item Value Reference Range Interpretation Comments S Preg (test code = S Negative (08/19/2011 N Preg) 15:58:00) [facility]anoFxcwbemQNRCZGCSW7502-46-50 21:58:00 Test Item Value Reference Range Interpretation Comments Lipase Lvl (test code = Lipase Lvl) 169 73-393 N [facility]anoMhuhbqtJCQYROYIX2844-12-28 21:58:00 Test Item Value Reference Range Interpretation Comments ALT (test code = ALT) 54 See_Comment N [Auto mated message] The system which ge nerated this result transmit rohit reference range : <=65. The reference range was not used to interpr et this result as reji l/abnormal. [facility] PlanoBcatsjtOHHSPPPKP4777-31-07 21:58:00 Test Item Value Reference Range Interpretation Comments Alk Phos (test code = Alk Phos) 110 39-136 N [facility]anoXsmivbhULJFKSXLU5984-02-83 21:58:00 Test Item Value Reference Range Interpretation Comments Bili Direct (test code 0.1 See_Comment N [Aut omated message] The = Bili Direct) system which generated this result tra nsmitted reference range : <=0.3. The reference r leo was not used to int erpret this result as reji l/abnormal. [facility] PlanoUceewxvXFJQOBENF2641-46-79 21:58:00 Test Item Value Reference Range Interpretation Comments Bili Total (test code = Bili Total) 0.9 0.2-1.3 N [facility]anoEjyknpiTGLIZUCLQ3718-17-16 21:58:00 Test Item Value Reference Range Interpretation Comments Albumin Lvl (test code = Albumin Lvl) 4.4 3.5-5.0 N [facility] PlanoCxuzbetIQKJGXSHV7898-13-39 21:58:00 Test Item Value Reference Range Interpretation Comments Total Protein (test code = Total 8.8 6.4-8.4 H Protein) [facility] PlanoQsrcvqbHKJGYDSGJ2970-29-18 21:58:00 Test Item Value Reference Range Interpretation Comments Bili Indirect (test 0.8 See_Comment N [Automa rohit message] The code = Bili Indirect) system which generated this result tra nsmitted reference range : <=1.0. The reference r leo was not used to int erpret this result as normal/abnormal . [facility] PlanoAhmzpidOHEOCCHZI1170-24-28 21:58:00 Test Item Value Reference Range Interpretation Comments AST (test code = AST) 36 See_Comment N [Auto mated message] The system which ge nerated this result transmit rohit reference range : <=37. The reference range was not used to interpr et this result as reji l/abnormal. [facility] PlanoAoursepIGJXRLHIK9150-61-44 21:58:00 Test Item Value Reference Range Interpretation Comments Globulin (test code = Globulin) 4.4 2.0-4.0 H [facility] PlanoDtyscaqEOLMAAXWO0778-11-03 21:58:00 Test Item Value Reference Range Interpretation Comments A/G Ratio (test code = A/G Ratio) 1.0 0.7-1.6 N [facility]UkymlijQFZBWLJWMT5653-33-64 21:58:00 Test Item Value Reference Range Interpretation Comments UA Bacteria (test code Occasional /HPF N = UA Bacteria) (08/19/2011 15:58:00) [facility]QqulyvpFPCWKZXOTH9942-37-04 21:58:00 Test Item Value Reference Range Interpretation Comments UA RBC (test 3-5 /HPF See_Comment A [Automated mes pastor] code = UA RBC) *ABN*(08/19/2011 The syste m which 15:58:00) generated this result transmitted ref erence range: <=2. The reference range was not used to int erpret this result as normal/abnormal . [facility]landMnrutyxLHETJGHMFW8134-39-37 21:58:00 Test Item Value Reference Range Interpretation Comments UA WBC (test code = 3 See_Comment [Automa rohit message] The UA WBC) system which ge nerated this result transmit rohit reference range : <=5. The reference range was not used to interpr et this result as reji l/abnormal. [facility] CenterQdotvhcFSLHYOANZR8252-39-39 21:58:00 Test Item Value Reference Range Interpretation Comments UA Mucus (test code = Few /LPF (08/19/2011 N UA Mucus) 15:58:00) [facility]landLhhluvuFZMVGTXZTY5892-60-11 21:58:00 Test Item Value Reference Range Interpretation Comments UA Amorph Destiny (test Occasional /HPF A code = UA Amorph *ABN*(08/19/2011 Destiny) 15:58:00) [facility]landDkedgztOSHCWHSIOM8486-64-74 21:58:00 Test Item Value Reference Range Interpretation Comments UA Urobilinogen (test code = UA 0.2 0.1-1.0 N Urobilinogen) [facility]landBquzcrlPHLMSQBZWP3638-00-81 21:58:00 Test Item Value Reference Range Interpretation Comments UA Sq Epi (test code = Rare /LPF (08/19/2011 N UA Sq Epi) 15:58:00) [facility]landPggzdnbRRHDDWWLWX8252-07-36 21:58:00 Test Item Value Reference Range Interpretation Comments Micro? (test code = Performed (08/19/2011 N Micro?) 15:58:00) [facility]landAlceznqEVGCUQPWNC9369-34-24 21:58:00 Test Item Value Reference Range Interpretation Comments UA Leuk Est (test Negative (08/19/2011 N code = UA Leuk Est) 15:58:00) [facility] DallasPpyxdlhRSPAROESRT8110-04-13 21:58:00 Test Item Value Reference Range Interpretation Comments UA Nitrite (test code Negative (08/19/2011 N = UA Nitrite) 15:58:00) [facility]landCdokbisUQXHZDFZER5906-35-06 21:58:00 Test Item Value Reference Range Interpretation Comments UA pH (test code = UA pH) 5.5 1 5.0-8.0 N [facility]landMcoywirFSPNATGDPY8583-28-17 21:58:00 Test Item Value Reference Range Interpretation Comments UA Blood (test code = Trace *ABN*(08/19/2011 A UA Blood) 15:58:00) [facility] DallasIbigfdvYLNYQEUICO5789-82-33 21:58:00 Test Item Value Reference Range Interpretation Comments UA Bili (test code = Negative (08/19/2011 N UA Bili) 15:58:00) [facility] DallasIxpkxvlWTJTVZPMOL4305-02-42 21:58:00 Test Item Value Reference Range Interpretation Comments UA Ketones (test code = 80 mg/dL A UA Ketones) *ABN*(08/19/2011 15:58:00) [facility] DallasXhbrufoOYBIIMQJCG6921-99-06 21:58:00 Test Item Value Reference Range Interpretation Comments UA Glucose (test code = >=1000 mg/dL A UA Glucose) *ABN*(08/19/2011 15:58:00) [facility]landJufihtwBROSPWKOKP2581-44-79 21:58:00 Test Item Value Reference Range Interpretation Comments UA Protein (test code Negative (08/19/2011 N = UA Protein) 15:58:00) [facility] DallasUpzobwvUOPSUFLIRU7664-27-97 21:58:00 Test Item Value Reference Range Interpretation Comments UA Turbidity (test code Slight Cloudy N = UA Turbidity) (08/19/2011 15:58:00) [facility] DallasZwhtjmpHMYYJZZYEO9934-21-80 21:58:00 Test Item Value Reference Range Interpretation Comments UA Spec Grav (test code = UA Spec 1.025 1 Grav) [facility]landPpqttywZDBZNHWZYN3030-57-89 21:58:00 Test Item Value Reference Range Interpretation Comments UA Color (test code = Yellow (08/19/2011 N UA Color) 15:58:00) [facility]anoBntweyuGWANUGOIN9286-33-65 21:13:00 Test Item Value Reference Range Interpretation Comments AST (test code = AST) 23 See_Comment N [Auto mated message] The system which ge nerated this result transmit rohit reference range : <=37. The reference range was not used to interpr et this result as reji l/abnormal. [facility] PlanoJzuushnUIVAOYSQQ1382-19-81 21:13:00 Test Item Value Reference Range Interpretation Comments Bili Total (test code = Bili Total) 1.0 0.2-1.3 N [facility] PlanoMzeyyosJUUADEQAI7792-55-91 21:13:00 Test Item Value Reference Range Interpretation Comments Alk Phos (test code = Alk Phos) 115 39-136 N [facility] PlanoGkzblkbSOAEDTVSA7745-81-05 21:13:00 Test Item Value Reference Range Interpretation Comments ALT (test code = ALT) 56 See_Comment N [Auto mated message] The system which ge nerated this result transmit rohit reference range : <=65. The reference range was not used to interpr et this result as reji l/abnormal. [facility] PlanoNkyywugNSNQKQGEQ7100-69-60 21:13:00 Test Item Value Reference Range Interpretation Comments Total Protein (test code = Total 9.0 6.4-8.4 H Protein) [facility] PlanoZpvhpzcISMIUZQFM0223-34-65 21:13:00 Test Item Value Reference Range Interpretation Comments Albumin Lvl (test code = Albumin Lvl) 4.8 3.5-5.0 N [facility] PlanoNyynttvMOVQZOINM8441-90-71 21:13:00 Test Item Value Reference Range Interpretation Comments Globulin (test code = Globulin) 4.2 2.0-4.0 H [facility] PlanoFzlslzzKKEQNNUOC0827-60-78 21:13:00 Test Item Value Reference Range Interpretation Comments A/G Ratio (test code = A/G Ratio) 1.1 0.7-1.6 N [facility] PlanoTtcqqzbVTZPKAPAM8803-99-82 21:13:00 Test Item Value Reference Range Interpretation Comments B/C Ratio (test code = B/C Ratio) 30 6-25 H [facility] CenterFwhwtlgCPPMVMWTWV7858-07-00 21:13:00 Test Item Value Reference Range Interpretation Comments RBC Morph (test code = Normal (08/19/2011 N RBC Morph) 15:13:00) [facility] CenterFlwqfveYHYFZKHESM0930-50-59 21:13:00 Test Item Value Reference Range Interpretation Comments Large Plt (test code = Slight *ABN*(08/19/2011 A Large Plt) 15:13:00) [facility] CenterHjmxbmpYFLUKRIWXI2526-85-68 21:13:00 Test Item Value Reference Range Interpretation Comments Atypical Lymphs (test code = Atypical 0.0 N Lymphs) [facility] CenterJqjvnnbCHJUZODISL1889-14-89 21:13:00 Test Item Value Reference Range Interpretation Comments Bands (test code = 0.0 See_Comment N [Automat ed message] The Bands) system which ge nerated this result transmit rohit reference range : <=11.0. The reference r leo was not used to interpr et this result as reji l/abnormal. [facility] PlanoLzhqyjsFSOSPLFGD8699-68-69 21:10:00 Test Item Value Reference Range Interpretation Comments O2 Sat Roberth (test code = O2 Sat Roberth) 74.0 40.0-70.0 H [facility] PlanoVxyvbhzUJFFPRWWF4018-03-79 21:10:00 Test Item Value Reference Range Interpretation Comments Temp Roberth (test code = Temp Roberth) 37.0 [facility] PlanoLwzmfphPTYSEUPAC0151-61-02 21:10:00 Test Item Value Reference Range Interpretation Comments pO2 Roberth (test code = pO2 Roberth) 42 20-49 N [facility] PlanoUndzqwuNURCQUEKI4422-97-96 21:10:00 Test Item Value Reference Range Interpretation Comments HCO3 Roberth (test code = HCO3 Roberth) 17.3 22.0-26.0 L [facility] PlanoZdohqtpBQMBNKVYL5191-55-65 21:10:00 Test Item Value Reference Range Interpretation Comments pH Roberth (test code = pH Roberth) 7.34 7.28-7.42 N [facility] PlanoIrqysgxEPKJXVFHS5104-34-75 21:10:00 Test Item Value Reference Range Interpretation Comments pCO2 Roberth (test code = pCO2 Roberth) 32 38-52 L [facility] PlanoWhnuebaEXJVXCRDD3814-04-79 21:10:00 Test Item Value Reference Range Interpretation Comments BE Roberth (test code = -7 See_Comment L [Automa rohit message] The BE Roberth) system which ge nerated this result transmit rohit reference range : <=2. The reference range was not used to interpr et this result as reji l/abnormal. [facility] CenterPcxjxlkIQMMYUVILM6032-34-80 20:34:00 Test Item Value Reference Range Interpretation Comments CDC-HIV 1/2 Ab (test Negative *NA*(08/19/2011 code = CDC-HIV 1/2 14:34:00) Ab) [facility]
[2021-08-07] MEDS ORDERED: ONDANSETRON 4 MG/2 ML VIAL ONE (23:57)
[2021-08-07] MEDS ORDERED: HYDROMORPHONE HCL 1 MG/ML INJ ONE (23:57)
[2021-08-07] MEDS ORDERED: NA CHLORIDE 0.9% 1,000 ML ONE (23:58)
[2021-08-08 00:04] LABS: MPV 9.7 fL (7.6-11.3); RBC Red Blood Cell Count 2.84 M/uL (3.86-4.86)
[2021-08-08 00:05] LABS: Protime INR 1.12
[2021-08-08 00:56] LABS: ALT/SGPT 21 U/L (12-78); AST/SGOT 24 U/L (15-37); Albumin 3.4 g/dL (3.4-5.0); Alkaline Phosphatase 78 U/L (45-117); BUN Blood Urea Nitrogen 79 mg/dL (7-18); Bicarbonate 19 mmol/L (21-32); Bilirubin Direct 0.2 mg/dL (0-0.2); Bilirubin Total 0.5 mg/dL (0.2-1.0); Glucose Level 100 mg/dL (74-106); Lipase 255 U/L (73-393); Magnesium 2.1 mg/dL (1.8-2.4); Protein, Total 6.8 g/dL (6.4-8.2); Sodium Level 140 mmol/L (136-145)
[2021-08-08 00:59] LABS: NT PRO-BNP > 175000 pg/mL (<125)
[2021-08-08 01:01] LABS: Potassium 6.3 mmol/L (3.5-5.1)
--- NOTE | 2021-08-08 01:08 | EDPHYS ---
Physician Documentation [facility] Name: aCthi Zaldivar Age: 40 yrs Sex: Female : 1980 Arrival Date: 08/07/2021 Time: 21:48 Bed 4 Private MD: DWIGHT Physician Luis Sandra HPI: 08/08 00:57 This 40 yrs old Female presents to ER via Wheelchair with complaints of juan Abdominal Pain. 00:57 The patient presents with abdominal pain abdominal distention in the upper abdomen, in juan the lower abdomen. Onset: The symptoms/episode began/occurred yesterday. The patient presents to the emergency department with nausea, vomiting, abdominal pain, of the right upper quadrant, left upper quadrant, right lower quadrant and left lower quadrant. Onset: The symptoms/episode began/occurred 1 day(s) ago. Possible causes: unknown. The symptoms are aggravated by movement, pressure, food , The symptoms are alleviated by nothing. remaining still. The symptoms do not radiate. Associated signs and symptoms: Pertinent positives: abdominal pain, nausea. The symptoms are described as constant, crampy. 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:13 LMP 08/01/2021 ll3 Historical: - Allergies: 22:13 ambien; ll3 22:13 Codeine; ll3 22:13 GUAIFENESIN; ll3 22:13 Ibuprofen; ll3 22:13 Lisinopril; ll3 22:13 Morphine; ll3 22:13 Nitrofurantoin Macrocrystal; ll3 22:13 PENICILLINS; ll3 22:13 Prolixin; ll3 22:13 zolpidem tartrate; ll3 - PMHx: 22:13 "mental problems"; CHF; chronic kidney disease; cyclic vomiting syndrome; ll3 Gastroparesis; Diabetes - NIDDM; Dialysis; m-w-f; ENCEPHALOPATHY; Hypertension; liver failure; PERIPHERAL NEUROPATHY; pseudo aneurysm R groin; Seizures; ibs; - PSHx: 22:13 section; dialysis catheter R chest wall; eye removed; ll3 - Immunization history:: Client reports having NOT received the Covid vaccine. - Social history:: Smoking status: Patient reports the use of cigarette tobacco products, denies chronic smoking, but will smoke occasionally. - Family history:: not pertinent. ROS: 08/08 00:57 Constitutional: Negative for fever, chills, and weight loss, Eyes: Negative for injury, juan pain, redness, and discharge, ENT: Negative for injury, pain, and discharge, Neck: Negative for injury, pain, and swelling, Cardiovascular: Negative for chest pain, palpitations, and edema, Respiratory: Negative for shortness of breath, cough, wheezing, and pleuritic chest pain, Back: Negative for injury and pain, : Negative for injury, bleeding, discharge, and swelling, MS/Extremity: Negative for injury and deformity, Skin: Negative for injury, rash, and discoloration, Neuro: Negative for headache, weakness, numbness, tingling, and seizure, Psych: Negative for depression, anxiety, suicide ideation, homicidal ideation, and hallucinations, Allergy/Immunology: Negative for hives, rash, and allergies, Endocrine: Negative for neck swelling, polydipsia, polyuria, polyphagia, and marked weight changes. Abdomen/GI: Positive for abdominal pain, nausea and vomiting, abdominal cramps. Exam: 00:57 Constitutional: This is a well developed, well nourished patient who is awake, alert, juan and in no acute distress. Head/Face: Normocephalic, atraumatic. Eyes: Pupils equal round and reactive to light, extra-ocular motions intact. Lids and lashes normal. Conjunctiva and sclera are non-icteric and not injected. Cornea within normal limits. Periorbital areas with no swelling, redness, or edema. ENT: Nares patent. No nasal discharge, no septal abnormalities noted. Tympanic membranes are normal and external auditory canals are clear. Oropharynx with no redness, swelling, or masses, exudates, or evidence of obstruction, uvula midline. Mucous membranes moist. Neck: Trachea midline, no thyromegaly or masses palpated, and no cervical lymphadenopathy. Supple, full range of motion without nuchal rigidity, or vertebral point tenderness. No Meningismus. Chest/axilla: Normal chest wall appearance and motion. Nontender with no deformity. No lesions are appreciated. Cardiovascular: Regular rate and rhythm with a normal S1 and S2. No gallops, murmurs, or rubs. Normal PMI, no JVD. No pulse deficits. Respiratory: Lungs have equal breath sounds bilaterally, clear to auscultation and percussion. No rales, rhonchi or wheezes noted. No increased work of breathing, no retractions or nasal flaring. Back: No spinal tenderness. No costovertebral tenderness. Full range of motion. Skin: Warm, dry with normal turgor. Normal color with no rashes, no lesions, and no evidence of cellulitis. MS/ Extremity: Pulses equal, no cyanosis. Neurovascular intact. Full, normal range of motion. Neuro: Awake and alert, GCS 15, oriented to person, place, time, and situation. Cranial nerves II-XII grossly intact. Motor strength 5/5 in all extremities. Sensory grossly intact. Cerebellar exam normal. Normal gait. Psych: Awake, alert, with orientation to person, place and time. Behavior, mood, and affect are within normal limits. 00:57 ECG was reviewed by the Attending Physician. 00:57 Abdomen/GI: Inspection: abdomen appears normal, Bowel sounds: normal, Palpation: mild abdominal tenderness, in all quadrants, Liver: no appreciated palpable abnormalities, Hernia: not appreciated. Vital Signs: 08/07 22:10 BP 192 / 98; Pulse 76; Resp 18; Temp 97.9(O); Pulse Ox 100% ; Weight 72.57 kg (R); ll3 Height 5 ft. 2 in. (157.48 cm) (R); Pain 10/10; 23:00 BP 167 / 109; Pulse 75; Resp 16; Pulse Ox 98% on R/A; mk 23:53 BP 124 / 87; Pulse 86; Resp 18; Pulse Ox 96% on R/A; mk 08/08 01:00 BP 137 / 91; Pulse 79; Resp 18; Pulse Ox 98% on R/A; mk 02:00 BP 142 / 103; Pulse 79; Resp 16; Pulse Ox 98% on R/A; mk 03:17 BP 185 / 105; Pulse 107; Resp 20; Pulse Ox 100% ; ll3 04:00 BP 180 / 74; Pulse 94; Resp 16; Pulse Ox 98% ; mk 05:00 BP 178 / 91; Pulse 81; Resp 16; Pulse Ox 98% on R/A; mk 06:00 BP 177 / 65; Pulse 91; Resp 18; Pulse Ox 98% on R/A; mk 08/07 22:10 Body Mass Index 29.26 (72.57 kg, 157.48 cm) ll3 Jose Coma Score: 08/07 23:00 Eye Response: spontaneous(4). Verbal Response: oriented(5). Motor Response: obeys mk commands(6). Total: 15. 08/08 00:00 Eye Response: spontaneous(4). Verbal Response: oriented(5). Motor Response: obeys mk commands(6). Total: 15. 01:00 Eye Response: spontaneous(4). Verbal Response: oriented(5). Motor Response: obeys mk commands(6). Total: 15. 02:00 Eye Response: spontaneous(4). Verbal Response: oriented(5). Motor Response: obeys mk commands(6). Total: 15. 03:00 Eye Response: spontaneous(4). Verbal Response: oriented(5). Motor Response: obeys mk commands(6). Total: 15. 04:00 Eye Response: spontaneous(4). Verbal Response: oriented(5). Motor Response: obeys mk commands(6). Total: 15. 04:00 Eye Response: spontaneous(4). Verbal Response: oriented(5). Motor Response: obeys mk commands(6). Total: 15. 05:00 Eye Response: spontaneous(4). Verbal Response: oriented(5). Motor Response: obeys mk commands(6). Total: 15. 06:00 Eye Response: spontaneous(4). Verbal Response: oriented(5). Motor Response: obeys mk commands(6). Total: 15. MDM: 08/07 22:39 [facility] screened. [facility] 08/08 01:04 Differential diagnosis: gastritis, cholecystitis, pancreatitis, appendicitis, viral juan gastroenteritis, gastroenteritis, gastritis, non-specific abd pain, pancreatitis, Peptic Ulcer Disease. Data reviewed: vital signs, nurses notes, EMS record, lab test result(s), EKG, radiologic studies, CT scan, plain films. Data interpreted: electrophysiology technologist: rate is 85 beats/min, rhythm is. Test interpretation: by ED physician or midlevel provider: ECG, plain radiologic studies. Counseling: I had a detailed discussion with the patient and/or guardian regarding: the historical points, exam findings, and any diagnostic results supporting the discharge/admit diagnosis, lab results, radiology results, the need for further work-up and treatment in the hospital. 08/07 22:41 Order name: Basic Metabolic Panel [facility] 08/07 22:41 Order name: CBC with Diff [facility] 08/07 22:41 Order name: LFT's [facility] 08/07 22:41 Order name: Magnesium [facility] 08/07 22:41 Order name: NT PRO-BNP [facility] 08/07 22:41 Order name: PT-INR [facility] 08/07 22:41 Order name: Troponin HS [facility] 08/07 22:41 Order name: Lipase [facility] 08/07 23:53 Order name: Basic Metabolic Panel; Complete Time: 01:02 EDMS 08/07 23:53 Order name: Liver (Hepatic) Function; Complete Time: 01:02 EDMS 08/07 23:53 Order name: Troponin High Sensitivity; Complete Time: 01:02 EDMS 08/07 23:53 Order name: NT PRO-BNP; Complete Time: 01:02 EDCT 08/07 23:53 Order name: Magnesium; Complete Time: 01:02 EDMS 08/07 23:54 Order name: Lipase; Complete Time: 01:02 EDCT 08/07 22:41 Order name: XRAY Chest (1 view); Complete Time: 08:38 [facility] 08/07 23:54 Order name: CBC with Automated Diff; Complete Time: 00:56 EDMS 08/07 23:54 Order name: Protime (+INR); Complete Time: 00:56 EDMS 08/08 01:03 Order name: COVID-19 SARS RT PCR (Document "Date of Onset" if Symptomatic); Complete la1 Time: 08:38 08/08 01:04 Order name: CT Abd/Pelvis - Without Contrast la1 08/08 03:46 Order name: Glucose, Ancillary Testing; Complete Time: 08:38 EDMS 08/08 04:34 Order name: Glucose, Ancillary Testing; Complete Time: 08:38 EDMS 08/08 05:36 Order name: Glucose, Ancillary Testing; Complete Time: 08:38 EDMS 08/08 06:24 Order name: Comprehensive Metabolic Panel; Complete Time: 08:38 EDMS 08/08 07:11 Order name: Glucose, Ancillary Testing; Complete Time: 08:38 EDMS 08/07 22:41 Order name: EKG; Complete Time: 00:04 [facility] 08/07 22:41 Order name: Cardiac monitoring; Complete Time: 23:41 [facility] 08/07 22:41 Order name: EKG - Nurse/Tech; Complete Time: 23:53 [facility] 08/07 22:41 Order name: IV Saline Lock; Complete Time: 23:41 [facility] 08/07 22:41 Order name: Labs collected and sent; Complete Time: 23:41 [facility] 08/07 22:41 Order name: O2 Per Protocol; Complete Time: 23:41 [facility] 08/07 22:41 Order name: O2 Sat Monitoring; Complete Time: 23:41 [facility] EC:57 Rate is 85 beats/min. Rhythm is regular. QRS [place] is Normal. ME interval is normal. QRS juan interval is normal. QT interval is normal. T waves are Normal. T waves are Peaked in leads V2, V3, V4, V5, V6. No ST changes noted. Clinical impression: NSR w/ Non-specific ST/T Changes and Suggests hyperkalemia. Interpreted by me. Reviewed by me. Administered Medications: 01:04 Discontinued: NS 0.9% 1000 ml IV at 75 ml/hr continuous la1 00:02 Drug: NS 0.9% 1000 ml Route: IV; Rate: 75 ml/hr; Site: left antecubital; mk 00:04 Drug: Zofran (Ondansetron) 4 mg Route: IVP; Site: left antecubital; mk 00:04 Drug: Dilaudid (HYDROmorphone) 1 mg Route: IVP; Site: left antecubital; mk 02:00 Drug: Calcium Gluconate 1 grams Route: IVPB; Infused Over: 20 mins; Site: left ll3 antecubital; 02:22 Follow up: Response: No adverse reaction; IV Status: Completed infusion; IV Intake: [id number] 07:24 Follow up: Response: No adverse reaction mk 02:45 Drug: D50W 50 ml Route: IVP; Site: left upper arm; 3 05:50 Follow up: Response: No adverse reaction mk 02:46 Drug: Insulin Regular Human 10 units {Co-Signature: jolly (Gail Elizabeth RN).} Route: ll3 IVP; Site: left upper arm; 07:25 Follow up: Response: Blood sugar is lowered mk 02:53 Drug: Albuterol 5 mg Route: Inhalation; ll3 03:04 Drug: Kayexalate (polystyrene) 45 grams Route: PO; mk 04:00 Follow up: Response: No adverse reaction mk 03:40 Drug: D10 in Water [2 mL/kg] 2 ml/kg Route: IVP; Site: left antecubital; mk 04:40 Follow up: Response: No adverse reaction mk 03:40 Drug: D10 in Water [2 mL/kg] 2 ml/kg Route: IVP; Site: left upper arm; mk 04:30 Drug: Glucose (dextrose) Gel 15 grams Route: PO; ll3 05:30 Follow up: Response: No adverse reaction mk 05:30 Drug: D10 in Water [2 mL/kg] 2 ml/kg Route: IVP; Site: left upper arm; ll3 05:50 Drug: Octreotide 50 mcg Route: Sub-Q; Site: left upper arm; mk 07:26 Follow up: Response: No adverse reaction mk 07:04 Not Given (wrong drive thru order taker ): Glucotrol (glipiZIDE) 15 mg PO once mk Disposition Summary: 08/08/21 01:07 Hospitalization Ordered Hospitalization Status: Observation juan Provider: Jovita Varma juan Condition: Stable juan Problem: new juan Symptoms: have improved juan Bed/Room Type: Standard juan Location: Telemetry/MedSurg (observation)(08/08/21 13:08) eb Room Assignment: 219(08/08/21 13:08) eb Diagnosis - Cardiomegaly juan - End stage renal disease - on HD juan - Abdominal pain, Generalized juan - Hyperkalemia juan - Diabetes mellitus due to underlying condition with hypoglycemia juan Forms: - Medication Reconciliation Form juan - SBAR form juan Signatures: Dispatcher [employer] EDLuis Troy MD MD cha Mickail, Joel, PA PA jmm Attema, Lee, INSECT CONTROL AIDE-C INSECT CONTROL AIDE-[facility] Tatiana Antonio, RN RN Marquita Leal [place], RN RN ll3 Kotarski, Madeline, RN RN mk Madeline Kotarski RN mk Corrections: (The following items were deleted from the chart) 03:17 01:07 Telemetry/MedSurg (Inpatient) juan cg 03:17 01:07 juan cg 07:16 08/07 23:00 PMHx: HD-TTHSat; mk 08/08 07:16 08/07 23:00 PMHx: covid 19; [facility] 08/08 13:08 03:17 BR ER HOLD cg eb : 03:17 ERHOLD- cg eb
--- NOTE | 2021-08-08 01:08 | ER ---
Nurse's Notes [facility] Name: Cathi Zaldivar Age: 40 yrs Sex: Female : 1980 Arrival Date: 08/07/2021 Time: 21:48 Bed 4 Private MD: Diagnosis: Cardiomegaly;End stage renal disease-on HD;Abdominal pain, Generalized;Hyperkalemia;Diabetes mellitus due to underlying condition with hypoglycemia Presentation: 08/07 22:10 Chief complaint: Patient states: C/O left sided abdominal pain, N/V/D since last night. ll3 Coronavirus screen: Vaccine status: Patient reports being unvaccinated. Ebola Screen: No symptoms or risks identified at this time. Initial Sepsis Screen: Does the patient meet any 2 criteria? No. Patient's initial sepsis screen is negative. Does the patient have a suspected source of infection? No. Patient's initial sepsis screen is negative. Risk Assessment: Do you want to hurt yourself or someone else? Patient reports no desire to harm self or others. Onset of symptoms was August 06, 2021. 22:10 Method Of Arrival: Wheelchair ll3 22:10 Acuity: JESSICA 2 ll3 Triage Assessment: 22:13 General: Appears uncomfortable, Behavior is cooperative, crying. Pain: Complains of ll3 pain in left upper quadrant and left lower quadrant Pain currently is 10 out of 10 on a pain scale. Pain began 1 day ago. Is continuous, Noted to be crying, guarding, moaning. Neuro: Level of Consciousness is awake, alert, obeys commands, Oriented to person, place, time, situation. Cardiovascular: Patient's skin is warm and dry. Respiratory: Respiratory effort is even, unlabored, Respiratory pattern is regular, symmetrical. GI: Abdomen is round non-distended, Bowel sounds present X 4 quads. Abd is soft Abdomen is tender to palpation in left upper quadrant and left lower quadrant Reports lower abdominal pain, upper abdominal pain, diarrhea, nausea, vomiting. Derm: Skin is pink, warm \\T\\ dry. 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 ll3 Historical: - Allergies: 22:13 ambien; ll3 22:13 Codeine; ll3 22:13 GUAIFENESIN; ll3 22:13 Ibuprofen; ll3 22:13 Lisinopril; ll3 22:13 Morphine; ll3 22:13 Nitrofurantoin Macrocrystal; ll3 22:13 PENICILLINS; ll3 22:13 Prolixin; ll3 22:13 zolpidem tartrate; ll3 - PMHx: 22:13 "mental problems"; CHF; chronic kidney disease; cyclic vomiting syndrome; ll3 Gastroparesis; Diabetes - NIDDM; Dialysis; m-w-f; ENCEPHALOPATHY; Hypertension; liver failure; PERIPHERAL NEUROPATHY; pseudo aneurysm R groin; Seizures; ibs; - PSHx: 22:13 section; dialysis catheter R chest wall; eye removed; ll3 - Immunization history:: Client reports having NOT received the Covid vaccine. - Social history:: Smoking status: Patient reports the use of cigarette tobacco products, denies chronic smoking, but will smoke occasionally. - Family history:: not pertinent. Screenin/18 07:15 Abuse screen: Denies threats or abuse. Nutritional screening: No deficits noted. mk Tuberculosis screening: No symptoms or risk factors identified. Fall Risk No fall in past 12 months (0 pts). No secondary diagnosis (0 pts). IV access (20 points). Ambulatory Aid- None/Bed Rest/Nurse Assist (0 pts). Gait- Normal/Bed Rest/Wheelchair (0 pts) Mental Status- Oriented to own ability (0 pts). Total Rios Fall Scale indicates Low Risk Score (25-44 pts). Fall prevention measures have been instituted. Side Rails Up X 2. Assessment: 08/07 23:00 General: Appears uncomfortable, Behavior is cooperative, anxious. Pain: Complains of pain in abdomen Pain currently is 10 out of 10 on a pain scale. Quality of pain is described as sharp. Neuro: Level of Consciousness is awake, alert, obeys commands, Oriented to person, place, time, situation, Cotton Classer Aide are equal bilaterally Moves all extremities. Cardiovascular: Heart tones S1 S2 present Capillary refill < 3 seconds in bilateral fingers toes Clubbing of nail beds is absent JVD is absent Patient's skin is warm and dry. Pulses are 3+ in right radial artery, right dorsalis pedis artery, left radial artery and left dorsalis pedis artery Rhythm is sinus bradycardia. Respiratory: Airway is patent Trachea midline Respiratory effort is even, unlabored, Respiratory pattern is regular, symmetrical. GI: Abdomen is flat, non-distended, Bowel sounds present X 4 quads. Abd is soft and non tender X 4 quads. Reports upper abdominal pain, anorexia, intolerance of fluids, intolerance of food, nausea, vomiting, since 1 day. : No signs and/or symptoms were reported regarding the genitourinary system. Derm: Skin is intact, is healthy with good turgor, Skin is dry, Skin temperature is warm. 08/08 00:00 Reassessment: No changes from previously documented assessment. Patient and/or family mk updated on plan of care and expected duration. Pain level reassessed. Patient is alert, oriented x 3, equal unlabored respirations, skin warm/dry/pink. 01:00 Reassessment: Patient is alert, oriented x 3, equal unlabored respirations, skin mk warm/dry/pink. Patient states feeling better. 02:00 Reassessment: Patient is alert, oriented x 3, equal unlabored respirations, skin mk warm/dry/pink. 03:00 Reassessment: Patient is alert, oriented x 3, equal unlabored respirations, skin mk warm/dry/pink. 04:00 Reassessment: Patient is alert, oriented x 3, equal unlabored respirations, skin mk warm/dry/pink. 05:00 Reassessment: Patient is alert, oriented x 3, equal unlabored respirations, skin mk warm/dry/pink. 06:00 Reassessment: Patient is alert, oriented x 3, equal unlabored respirations, skin mk warm/dry/pink. 07:19 Reassessment:. Vital Signs: 08/07 22:10 BP 192 / 98; Pulse 76; Resp 18; Temp 97.9(O); Pulse Ox 100% ; Weight 72.57 kg (R); ll3 Height 5 ft. 2 in. (157.48 cm) (R); Pain 10/10; 23:00 BP 167 / 109; Pulse 75; Resp 16; Pulse Ox 98% on R/A; mk 23:53 BP 124 / 87; Pulse 86; Resp 18; Pulse Ox 96% on R/A; mk 08/08 01:00 BP 137 / 91; Pulse 79; Resp 18; Pulse Ox 98% on R/A; mk 02:00 BP 142 / 103; Pulse 79; Resp 16; Pulse Ox 98% on R/A; mk 03:17 BP 185 / 105; Pulse 107; Resp 20; Pulse Ox 100% ; ll3 04:00 BP 180 / 74; Pulse 94; Resp 16; Pulse Ox 98% ; mk 05:00 BP 178 / 91; Pulse 81; Resp 16; Pulse Ox 98% on R/A; mk 06:00 BP 177 / 65; Pulse 91; Resp 18; Pulse Ox 98% on R/A; mk 08/07 22:10 Body Mass Index 29.26 (72.57 kg, 157.48 cm) ll3 Freeman Coma Score: 08/07 23:00 Eye Response: spontaneous(4). Verbal Response: oriented(5). Motor Response: obeys mk commands(6). Total: 15. 18 00:00 Eye Response: spontaneous(4). Verbal Response: oriented(5). Motor Response: obeys mk commands(6). Total: 15. 01:00 Eye Response: spontaneous(4). Verbal Response: oriented(5). Motor Response: obeys mk commands(6). Total: 15. 02:00 Eye Response: spontaneous(4). Verbal Response: oriented(5). Motor Response: obeys mk commands(6). Total: 15. 03:00 Eye Response: spontaneous(4). Verbal Response: oriented(5). Motor Response: obeys mk commands(6). Total: 15. 04:00 Eye Response: spontaneous(4). Verbal Response: oriented(5). Motor Response: obeys mk commands(6). Total: 15. 04:00 Eye Response: spontaneous(4). Verbal Response: oriented(5). Motor Response: obeys mk commands(6). Total: 15. 05:00 Eye Response: spontaneous(4). Verbal Response: oriented(5). Motor Response: obeys mk commands(6). Total: 15. 06:00 Eye Response: spontaneous(4). Verbal Response: oriented(5). Motor Response: obeys mk commands(6). Total: 15. ED Course: 08/07 21:48 Patient arrived in ED. kc5 22:13 Triage completed. ll3 22:13 Arm band placed on. ll3 22:39 Luis Sandra MD is Attending Physician. juan 23:00 Patient has correct armband on for positive identification. Placed in gown. Bed in low mk position. Call light in reach. Side rails up X 1. 23:06 Gail Elizabeth, RN is Primary Nurse. mk 08/08 00:30 Basic Metabolic Panel Sent. ds4 00:30 Troponin High Sensitivity Sent. ds4 00:30 Liver (Hepatic) Function Sent. ds4 00:30 Magnesium Sent. ds4 00:30 NT PRO-BNP Sent. ds4 00:30 Lipase Sent. ds4 00:35 XRAY Chest (1 view) In Process Unspecified. EDMS 01:05 Jovita Varma MD is Hospitalizing Provider[facility] 01:58 CT Abd/Pelvis - Without Contrast In Process Unspecified. EDMS 02:45 Inserted saline lock: 22 gauge in left upper arm, using aseptic technique. ds4 03:44 Notified ED physician of a critical lab result(s). Pt BG in 50s, asked for D10 as no mk D50 amps in ER, obtained everbal (note BG checked later as IV line blew when first RN was giving dextrose, so insulin given only 30 min prior to BG recheck). 04:49 Notified ED physician of a critical lab result(s). critically low BG, obtained everbal mk for glucose gel. 05:50 Notified Nurse Practitioner and/or Physician Information Security Specialist of a critical lab result(s), mk ciritcally low BG, everbal obtained. 07:16 No provider procedures requiring assistance completed. Patient admitted, IV remains in mk place. Administered Medications: 01:04 Discontinued: NS 0.9% 1000 ml IV at 75 ml/hr continuous la1 00:02 Drug: NS 0.9% 1000 ml Route: IV; Rate: 75 ml/hr; Site: left antecubital; mk 00:04 Drug: Zofran (Ondansetron) 4 mg Route: IVP; Site: left antecubital; mk 00:04 Drug: Dilaudid (HYDROmorphone) 1 mg Route: IVP; Site: left antecubital; mk 02:00 Drug: Calcium Gluconate 1 grams Route: IVPB; Infused Over: 20 mins; Site: left ll3 antecubital; 02:22 Follow up: Response: No adverse reaction; IV Status: Completed infusion; IV Intake: [id number] 07:24 Follow up: Response: No adverse reaction mk 02:45 Drug: D50W 50 ml Route: IVP; Site: left upper arm; ll3 05:50 Follow up: Response: No adverse reaction mk 02:46 Drug: Insulin Regular Human 10 units {Co-Signature: jolly (Gail Elizabeth RN).} Route: ll3 IVP; Site: left upper arm; 07:25 Follow up: Response: Blood sugar is lowered mk 02:53 Drug: Albuterol 5 mg Route: Inhalation; ll3 03:04 Drug: Kayexalate (polystyrene) 45 grams Route: PO; mk 04:00 Follow up: Response: No adverse reaction mk 03:40 Drug: D10 in Water [2 mL/kg] 2 ml/kg Route: IVP; Site: left antecubital; mk 04:40 Follow up: Response: No adverse reaction mk 03:40 Drug: D10 in Water [2 mL/kg] 2 ml/kg Route: IVP; Site: left upper arm; mk 04:30 Drug: Glucose (dextrose) Gel 15 grams Route: PO; ll3 05:30 Follow up: Response: No adverse reaction mk 05:30 Drug: D10 in Water [2 mL/kg] 2 ml/kg Route: IVP; Site: left upper arm; ll3 05:50 Drug: Octreotide 50 mcg Route: Sub-Q; Site: left upper arm; mk 07:26 Follow up: Response: No adverse reaction mk 07:04 Not Given (wrong food and beverage order clerk ): Glucotrol (glipiZIDE) 15 mg PO once Intake: 02:22 IV: 50ml; Total: 50ml. ll3 Outcome: 01:07 Decision to Hospitalize by Provider. [facility] 14:05 Patient left the ED. ke1 Signatures: Dispatcher [employer] EDLuis Troy MD MD cha Swanson, Donovan ds4 Ryann Hogan RN RN ll3 Jada Sanchez5 Gail Elizabeth RN RN mk Ebrottie, Kouassi, RN RN ke1 Gail azevedo Corrections: (The following items were deleted from the chart) 05:53 04:37 Glucotrol (glipiZIDE) 15 mg PO ll3 ll3 07:15 02/17 23:53 Pulse 86bpm; Resp 18bpm; Pulse Ox 96% RA; [facility] 08/08 07:16 08/07 23:00 PMHx: HD-TTHSat; [facility] 08/08 07:08/07 23:00 PMHx: covid 19; [facility] 08/08 07 04:40 Notified ED physician of a critical lab result(s). Pt BG in 50s, asked for D10 as mk no D50 amps in ER, obtained everbal (note BG checked later as IV line blew when first RN was giving dextrose, so insulin given only 30 min prior to BG recheck)
--- NOTE | 2021-08-08 01:35 | P.HP ---
Certification for Inpatient Patient admitted to: Observation With expected LOS: <2 Midnights Patient will require the following post-hospital care: None Practitioner: I am a practitioner with admitting privileges, knowledge of patient current condition, hospital course, and medical plan of care. Services: Services provided to patient in accordance with Admission requirements found in Title 42 Section 412.3 of the Code of Federal Regulations Patient History Date of Service: 08/08/21 Reason for admission: Hyperkalemia History of Present Illness: 40-year-old female with history of ESRD on HD MWF, CHF, gastroparesis, diabetes mellitus type 2insulin-dependent, hypertension and seizure disorder presents emergency department for abdominal pain. Patient also reports that she missed dialysis the last 2 times, last dialysis was on Wednesday the . Patient was evaluated here in the emergency department her labs were significant for white blood cell count 3.4 Red blood cell 2.8 hemoglobin 8.6 hematocrit 26 platelets 96 potassium 6.3 chloride 110 carbon dioxide 19 BUN 79 creatinine 11.3 GFR 4 BNP greater than 175,000. Patient with peaked T waves on EKG was given potassium cocktail in the emergency department ED provider wishes to admit under observation for hyperkalemia. CT abdomen pelvis noncontrast pending to further evaluate abdominal pain although this is presumed to be related to patient's chronic gastroparesis, she reports that the pain is similar. Allergies zolpidem tartrate [From Ambien] Allergy (Intermediate, Verified 10/17/16 23:08) Itching/Hives/Rash codeine [Codeine] Allergy (Verified 10/17/16 23:08) Hives fluphenazine enanthate [From Prolixin] Allergy (Verified 10/17/16 23:08) ARM NUMBNESS fluphenazine HCl [From Prolixin] Allergy (Verified 10/17/16 23:08) ARM NUMBNESS guaifenesin [From Prolex D] Allergy (Verified 10/17/16 23:08) Hives lisinopril Allergy (Verified 04/21/17 10:26) Anaphylaxis morphine Allergy (Verified 10/01/20 10:03) Itching Penicillins Allergy (Verified 10/17/16 23:08) Hives phenylephrine HCl [From Prolex D] Allergy (Verified 10/17/16 23:08) Hives nitrofurantoin Adverse Reaction (Verified 08/07/17 23:41) liver failure Home Medications: Calcium Acetate [Phoslo*] 2 cap PO TIDWM 03/05/20 Divalproex Sodium [Divalproex Sodium ER] 500 mg PO BID 03/05/20 Sertraline [Zoloft*] 50 mg PO DAILY 03/05/20 Trazodone HCl 150 mg PO BEDTIME PRN PRN 03/05/20 Pantoprazole Sodium [Protonix] 1 tab PO DAILY 30 Days #30 tablet.dr 03/06/20 Gabapentin 1 tab PO BID 07/22/20 Metoprolol Succinate 25 mg PO DAILY 07/22/20 Pravastatin Sodium 1 tab PO DAILY 07/22/20 Doxazosin [Cardura*] 4 mg PO BEDTIME 09/30/20 Furosemide [Lasix*] 40 mg PO BID 09/30/20 Ondansetron [Zofran (Odt)*] 4 mg PO Q8H PRN 14 Days #30 tab 10/01/20 Ascorbate Calcium [Vitamin C] 500 mg PO TID #90 tablet 10/28/20 Sucralfate [Carafate*] 1 gm PO ACHS #90 tab 10/28/20 Nepro Shake [Nepro*] 237 ml PO TID #60 can 11/07/20 Cholecalciferol (Vitamin D3) [Vitamin D 5,000 IU Cap*] 5,000 unit PO DAILY #30 cap 01/16/21 Hydrocodone 5/APAP 325 [[place] 5/325*] 1 tab PO Q6H PRN #30 tab 07/02/21 clonazePAM [Klonopin] 0.5 mg PO TID PRN #60 tablet 07/02/21 Heparin [Heparin 1,000 units/mL *] 6,000 unit IV EVERY HD PRN vial 07/31/21 Mannitol 25% [Mannitol*] 12.5 gm IV EVERY HD PRN vial 07/31/21 Metoclopramide [Reglan*] 5 ml PO TID PRN 07/31/21 - Past Medical/Surgical History Diabetic: Yes -: DM Type 2 -: Seizure disorder -: ESRD on HD -: DM Gastroparesis -: DM Neuropathy -: Insomnia -: Obesity -: JAYLA -: Hypertension -: Post traumatic stress disorder -: Schizoaffective disorder -: CHF, diastolic -: I/D of the right elbow -: 2 previous C-sections -: Tubal ligation Psychosocial/ Personal History: She is , she has 2 children, she does not work. She lives with her boyfriend and daughter. - Family History Mother -: Hypertension, Diabetes, Cancer, Other (see notes) Notes: hypothyroid, asthma, breast cancer Father -: Diabetes, Cancer Notes: - stomach/ lung/ prostate cancer, diabetes - Social History Alcohol use: No CD- Drugs: No Caffeine use: No Place of Residence: Home Review of Systems 10-point ROS is otherwise unremarkable Respiratory: Shortness of Breath Gastrointestinal: Nausea, Abdominal Pain Physical Examination - Physical Exam General: Alert, In no apparent distress, Oriented x3 HEENT: Atraumatic, PERRLA, Mucous membr. moist/pink, EOMI, Sclerae nonicteric Neck: Supple, 2+ carotid pulse no bruit, No LAD, Without JVD or thyroid abnormality Respiratory: Diminished, Crackles/rales Cardiovascular: Regular rate/rhythm, Normal S1 S2 Gastrointestinal: Normal bowel sounds, No tenderness Musculoskeletal: No tenderness Integumentary: No rashes Neurological: Normal gait, Normal speech, Normal strength at 5/5 x4 extr, Normal tone, Normal affect Lymphatics: No axilla or inguinal lymphadenopathy - Studies Laboratory Data (last 24 hrs) 08/07/21 23:40: PT 12.9 H, INR 1.12 08/07/21 23:40: WBC 3.40 L D, Hgb 8.6 L D, Hct 26.0 L D, Plt Count 96 L* 08/07/21 23:40: Sodium 140, Potassium 6.3 H*, BUN 79 H D, Creatinine 11.30 H* D, Glucose 100, Magnesium 2.1, Total Bilirubin 0.5, AST 24, ALT 21, Alkaline Phosphatase 78, Lipase 255 Assessment and Plan - Plan Assessment: ESRD on HD with noncompliance and hyperkalemia Acute on chronic diastolic congestive heart failure Diabetes mellitus type 2insulin-dependent Hypertension Seizure disorder Plan: ESRD on HD with noncompliance and hyperkalemia: Potassium cocktail given in the emergency room we will repeat chemistry in the morning, nephrology consulted for acute HD. Monitor on telemetry. Acute on chronic diastolic congestive heart failure: Volume management with dialysis as above. Monitor on telemetry. Continue medications Diabetes mellitus type 2insulin-dependent: A [facility] Accu-Chek, sliding scale insulin. Hypertension: Obtain and continue medication, as needed IV antihypertensive agents. Seizure disorder: Obtain and continue home meds DVT PPX: Heparin Code status: Full Discharge Plan: Home Plan to discharge in: 24 Hours - Advance Directives Does patient have a Living Will: No Does patient have a Durable POA for Healthcare: No - Code Status/Comfort Care Code Status Assessed: Yes (Full code) Critical Care: No Time Spent Managing Pts Care (In Minutes): 55
[2021-08-08] MEDS ORDERED: CALCIUM GLUCONATE 1 GM IVPB 1 GM/50 ML BAG IV ONE (01:51)
[2021-08-08] MEDS ORDERED: INSULIN -REGULAR HUMAN 50 UNIT/0.5 ML ML ONE (01:54)
[2021-08-08] MEDS ORDERED: SOD POLYSTYREN SUL 15 GM/60 ML UCUP ONE (01:56)
[2021-08-08] MEDS ORDERED: ALBUTEROL INHALER 60 PUFF/8 GM IH ONE (01:56)
[2021-08-08] MEDS ORDERED: ALBUTEROL 2.5 MG/3 ML NEB SOL ONE (01:57)
[2021-08-08] MEDS ORDERED: D10W 250 ML IV ONE ×2 (03:44→05:53)
[2021-08-08] MEDS ORDERED: DEXTROSE ORAL 40% 15 GM TUBE ONE (04:25)
[2021-08-08] MEDS ORDERED: TRAMADOL HCL 50 MG TAB PO PRN (05:23)
[2021-08-08] MEDS ORDERED: ONDANSETRON 4 MG/2 ML VIAL IV PRN (05:23)
[2021-08-08] MEDS ORDERED: OCTREOTIDE ACETATE 100 MCG/ML ONE (05:51)
[2021-08-08 06:22] LABS: Albumin 3.1 g/dL (3.4-5.0); Bilirubin Total 0.4 mg/dL (0.2-1.0); Potassium 5.3 mmol/L (3.5-5.1)
[2021-08-08] MEDS: INSULIN -REGULAR HUMAN 50 UNIT/0.5 ML ML SQ SCH ×3 (07:30→16:30)
[2021-08-08 07:31] VITALS: BMI 29.0
[2021-08-08] MEDS ORDERED: NA CHLORIDE 0.9% 1,000 ML IV PRN (07:52)
[2021-08-08] MEDS ORDERED: MANNITOL 25% 12.5 GM/50 ML VIAL IV PRN (07:52)
--- NOTE | 2021-08-08 07:52 | RAD REPORT ---
EXAM DESCRIPTION: RAD - Chest Single View - 08/08/2021 12:35 am CLINICAL HISTORY: ABDOMINAL DISTENTION COMPARISON: Chest Single View dated 07/30/2021; Chest Single View dated 06/30/2021; Chest Single View d ated 03/31/2021; Chest Single View dated 02/17/2021; Abdomen Pelvis Wo Contrast dated 08/08/2021 FINDINGS: Lines: Right IJ approach dialysis catheter with tip overlying the right atrium. Right subc lavian stent. Lungs: Pulmonary vascular congestion. Pleural: No significant pleural effusions or pneumothorax. Cardiac: Cardiomegaly. Bones: No acute fractures. Other: IMPRESSION: Pulmonary vascular congestion.
--- NOTE | 2021-08-08 07:56 | P.CNS ---
Date of Consult: 08/08/21 Reason for Consult: ESRD Requesting Physician: Jovita Varma Chief Complaint: Hyperkalemia History of Present Illness: 40-year-old female with history of ESRD on HD MWF, CHF, gastroparesis, diabetes mellitus type 2insulin-dependent, hypertension and seizure disorder presents emergency department for abdominal pain. Patient also reports that she missed dialysis the last 2 times, last dialysis was on Wednesday the . Patient was evaluated here in the emergency department her labs were significant for white blood cell count 3.4 Red blood cell 2.8 hemoglobin 8.6 hematocrit 26 platelets 96 potassium 6.3 chloride 110 carbon dioxide 19 BUN 79 creatinine 11.3 GFR 4 BNP greater than 175,000. Patient with peaked T waves on EKG was given potassium cocktail in the emergency department ED provider wishes to admit under observation for hyperkalemia. CT abdomen pelvis noncontrast pending to further evaluate abdominal pain although this is presumed to be related to patient's chronic gastroparesis, she reports that the pain is similar. 00:57 This 40 yrs old Female presents to ER via Wheelchair with complaints of juan Abdominal Pain. 00:57 The patient presents with abdominal pain abdominal distention in the upper abdomen, in juan the lower abdomen. Onset: The symptoms/episode began/occurred yesterday. The patient presents to the emergency department with nausea, vomiting, abdominal pain, of the right upper quadrant, left upper quadrant, right lower quadrant and left lower quadrant. Onset: The symptoms/episode began/occurred 1 day(s) ago. Possible causes: unknown. The symptoms are aggravated by movement, pressure, food , The sy mptoms are alleviated by nothing. remaining still. The symptoms do not radiate. Associated signs and symptoms: Pertinent positives: abdominal pain, nausea. The symptoms are described as constant, crampy. Allergies zolpidem tartrate [From Ambien] Allergy (Intermediate, Verified 10/17/16 23:08) Itching/Hives/Rash codeine [Codeine] Allergy (Verified 10/17/16 23:08) Hives fluphenazine enanthate [From Prolixin] Allergy (Verified 10/17/16 23:08) ARM NUMBNESS fluphenazine HCl [From Prolixin] Allergy (Verified 10/17/16 23:08) ARM NUMBNESS guaifenesin [From Prolex D] Allergy (Verified 10/17/16 23:08) Hives lisinopril Allergy (Verified 04/21/17 10:26) Anaphylaxis morphine Allergy (Verified 10/01/20 10:03) Itching Penicillins Allergy (Verified 10/17/16 23:08) Hives phenylephrine HCl [From Prolex D] Allergy (Verified 10/17/16 23:08) Hives nitrofurantoin Adverse Reaction (Verified 08/07/17 23:41) liver failure Home medications list reviewed: Yes Home Medications: Calcium Acetate [Phoslo*] 2 cap PO TIDWM 03/05/20 Sertraline [Zoloft*] 50 mg PO DAILY 03/05/20 Trazodone HCl 150 mg PO BEDTIME PRN PRN 03/05/20 Pantoprazole Sodium [Protonix] 1 tab PO DAILY 30 Days #30 tablet. 03/06/20 Gabapentin 1 tab PO BID 07/22/20 Metoprolol Succinate 25 mg PO DAILY 07/22/20 Pravastatin Sodium 1 tab PO DAILY 07/22/20 Doxazosin [Cardura*] 4 mg PO BEDTIME 09/30/20 Furosemide [Lasix*] 40 mg PO BID 09/30/20 Ondansetron [Zofran (Odt)*] 4 mg PO Q8H PRN 14 Days #30 tab 10/01/20 Ascorbate Calcium [Vitamin C] 500 mg PO TID #90 tablet 10/28/20 Nepro Shake [Nepro*] 237 ml PO TID #60 can 11/07/20 Cholecalciferol (Vitamin D3) [Vitamin D 5,000 IU Cap*] 5,000 unit PO DAILY #30 cap 01/16/21 Hydrocodone 5/APAP 325 [[place] 5/325*] 1 tab PO Q6H PRN #30 tab 07/02/21 clonazePAM [Klonopin] 0.5 mg PO TID PRN #60 tablet 07/02/21 Heparin [Heparin 1,000 units/mL *] 6,000 unit IV EVERY HD PRN vial 07/31/21 Mannitol 25% [Mannitol*] 12.5 gm IV EVERY HD PRN vial 07/31/21 Metoclopramide [Reglan*] 5 ml PO TID PRN 07/31/21 - Past Medical/Surgical History Diabetic: Yes -: DM Type 2 -: Seizure disorder -: ESRD on HD -: DM Gastroparesis -: DM Neuropathy -: Insomnia -: Obesity -: JAYLA -: Hypertension -: Post traumatic stress disorder -: Schizoaffective disorder -: CHF, diastolic -: I/D of the right elbow -: 2 previous C-sections -: Tubal ligation Psychosocial/ Personal History: She is , she has 2 children, she does not work. She lives with her boyfriend and daughter. - Family History Mother Medical History: Hypertension, Diabetes, Cancer, Other (see notes) Notes: hypothyroid, asthma, breast cancer Father Medical History: Diabetes, Cancer Notes: - stomach/ lung/ prostate cancer, diabetes - Social History Smoking Status: Current some day smoker Alcohol use: No CD- Drugs: No Caffeine use: No Place of Residence: Home Review of Systems 10-point ROS is otherwise unremarkable General: Weakness, Malaise Cardiovascular: Edema Gastrointestinal: Abdominal Pain Physical Examination General: Oriented x3, Cooperative HEENT: Atraumatic Neck: Supple Respiratory: Diminished Cardiovascular: Regular rate/rhythm, Edema Gastrointestinal: Non-distended, Tenderness Musculoskeletal: No clubbing, No contractures Integumentary: No rashes, No cyanosis Neurological: Normal speech Laboratory Data (last 24 hrs) 08/07/21 23:40: PT 12.9 H, INR 1.12 08/07/21 23:40: WBC 3.40 L D, Hgb 8.6 L D, Hct 26.0 L D, Plt Count 96 L* 08/07/21 23:40: Sodium 140, Potassium 6.3 H*, BUN 79 H D, Creatinine 11.30 H* D, Glucose 100, Magnesium 2.1, Total Bilirubin 0.5, AST 24, ALT 21, Alkaline Phosphatase 78, Lipase 255 08/07/21 22:41: PT Cancelled, INR Cancelled 08/07/21 22:41: WBC Cancelled, Hgb Cancelled, Hct Cancelled, Plt Count Cancelled 08/07/21 22:41: Sodium Cancelled, Potassium Cancelled, BUN Cancelled, Creatinine Cancelled, Glucose Cancelled, Magnesium Cancelled, Total Bilirubin Cancelled, AST Cancelled, ALT Cancelled, Alkaline Phosphatase Cancelled, Lipase Cancelled Imagings Data: EXAM DESCRIPTION: RAD - Chest Single View - 08/08/2021 12:35 am CLINICAL HISTORY: ABDOMINAL DISTENTION COMPARISON: Chest Single View dated 07/30/2021; Chest Single View dated 06/30/2021; Chest Single View dated 03/31/2021; Chest Single View dated 02/17/2021; Abdomen Pelvis Wo Contrast dated 08/08/2021 FINDINGS: Lines: Right IJ approach dialysis catheter with tip overlying the right atrium. Right subclavian stent. Lungs: Pulmonary vascular congestion. Pleural: No significant pleural effusions or pneumothorax. Cardiac: Cardiomegaly. Bones: No acute fractures. Other: IMPRESSION: Pulmonary vascular congestion. Conclusions/Impression: ESRD -Acute HD today HTN with CKD/ CHF -Continue Metoprolol Diastolic CHF, A/C -Acute HD with UF -Low sodium diet -Continue Metoprolol DM II with CKD, Polyneuropathy, Gastroparesis -Reglan X1 Moderate malnutrition -Consider Nepro Anemia in CKD -Retacrit X1 CKD MBD -Start Calcitriol Thank you kindly for the consultation.
[2021-08-08] MEDS ORDERED: ALBUMIN HUMAN 25% 50 ML IV SCH (08:00)
[2021-08-08] MEDS ORDERED: METOCLOPRAMIDE 10 MG/2mL INJ ONE (08:59)
[2021-08-08] MEDS ORDERED: METOCLOPRAMIDE 10 MG/2mL INJ IV ONE (09:00)
[2021-08-08] MEDS ORDERED: HEPARIN 5000 UNIT/ML 1 ML VIAL SQ SCH (09:00)
[2021-08-08] MEDS ORDERED: PNEUMOCOCCAL VACCINE 0.5 ML IMVAC ONE ×2 (10:00→10:36)
[2021-08-08] MEDS ORDERED: INFLUENZA VACCINE (for 6+ mo) 0.5 ML DOSE IMVAC ONE ×2 (10:00→10:35)
[2021-08-08] MEDS ORDERED: TRAMADOL HCL 50 MG TAB ONE (10:05)
--- NOTE | 2021-08-08 11:54 | P.PN ---
Subjective Date of Service: 08/08/21 Chief Complaint: Hyperkalemia Subjective: No new changes (Abdominal pain) Physical Examination - Studies Laboratory Data (last 24 hrs) 08/07/21 23:40: PT 12.9 H, INR 1.12 08/07/21 23:40: WBC 3.40 L D, Hgb 8.6 L D, Hct 26.0 L D, Plt Count 96 L* 08/07/21 23:40: Sodium 140, Potassium 6.3 H*, BUN 79 H D, Creatinine 11.30 H* D, Glucose 100, Magnesium 2.1, Total Bilirubin 0.5, AST 24, ALT 21, Alkaline Phosphatase 78, Lipase 255 08/07/21 22:41: PT Cancelled, INR Cancelled 08/07/21 22:41: WBC Cancelled, Hgb Cancelled, Hct Cancelled, Plt Count Cancelled 08/07/21 22:41: Sodium Cancelled, Potassium Cancelled, BUN Cancelled, Creatinine Cancelled, Glucose Cancelled, Magnesium Cancelled, Total Bilirubin Cancelled, AST Cancelled, ALT Cancelled, Alkaline Phosphatase Cancelled, Lipase Cancelled Assessment And Plan - Code Status/Comfort Care Code Status Assessed: Yes Physician Review: Patient Assessed, Agree with Above Assessment and Plan Physician Review Additional Text: 08/08/21 11:51 Physical examination General: Alert, In no apparent distress, Oriented x3 HEENT: Atraumatic, PERRLA, Mucous membr. moist/pink, EOMI, Sclerae nonicteric Neck: Supple, 2+ carotid pulse no bruit, No LAD, Without JVD or thyroid abnormality Respiratory: Diminished, Crackles/rales Cardiovascular: Regular rate/rhythm, Normal S1 S2 Gastrointestinal: Mild tenderness over the epigastric area, bowel sounds pos itive, no lower abdominal area tenderness Musculoskeletal: No tenderness Integumentary: No rashes Neurological: Normal gait, Normal speech, Normal strength at 5/5 x4 extr, Normal tone, Normal affect Lymphatics: No axilla or inguinal lymphadenopathy Assessment and Plan - Plan Assessment: ESRD on HD with noncompliance and hyperkalemia Abdominal painlikely due to gastroparesis Acute on chronic diastolic congestive heart failure Diabetes mellitus type 2insulin-dependent Hypertension Seizure disorder Plan: ESRD on HD with noncompliance and hyperkalemia: Stat hemodialysis today Nephrology on board Abdominal painCT reviewed, awaiting official reading, finding of dilated gastrum but no evidence of small bowel obstruction. Start Reglan 10 mg every 6 for now Acute on chronic diastolic congestive heart failure: Volume management with dialysis as above. Monitor on telemetry. Continue medications Diabetes mellitus type 2insulin-dependent: [facility] Accu-Chek, sliding scale insulin. Hypertension: Obtain and continue medication, as needed IV antihypertensive agents. 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
[2021-08-08] MEDS: METOCLOPRAMIDE 10MG/10ML UCUP PO SCH ×2 (12:00→18:03)
--- NOTE | 2021-08-08 13:04 | EKG ---
Test Date: 2021-08-07 Test Time: 23:50:35 Corporate Librarian: MEASUREMENT RESULTS: Intervals: Rate: 85 CO: 150 QRSD: 86 QT: 388 QTc: 461 [place]: P: 53 CO: 150 QRS: 94 T: 40 INTERPRETIVE STATEMENTS: Normal sinus rhythm Rightward axis Borderline ECG Compared to ECG 07/01/2021 00:25:14 No significant changes Electronically Signed On 08-08-21 13:02:49 SR. OPERATIONS MANAGER by Juan Hogan
--- NOTE | 2021-08-08 13:38 | RAD REPORT ---
EXAM DESCRIPTION: CT - Abdomen Pelvis Wo Contrast - 08/08/2021 6:44 am CLINICAL HISTORY: 40 years, Female, ABD PAIN COMPARISON: 06/30/2021 TECHNIQUE: Multiple transaxial tomograms of the abdomen and pelvis were performed from the lung base s to the symphysis pubis 5 mm slice thickness at 5 mm interval reconstruction, without administration of IV and oral contrast. Multiplanar reformats in the sagittal and coronal plane were generated and reviewed. This exam was performed according to our departmental dose-optimization protocol, which includes auto mated exposure control, adjustment of the mA and/or kV according to patient size and/or use of iterat montse reconstruction technique. FINDINGS: The lack of IV and oral contrast limits evaluation of solid organs, subtle lesions cannot be excluded. The lung bases demonstrate prominence of the pulmonary markings perhaps suggesting early fluid overlo ad. There is mild cord megaly. There is a central line catheter. Trace bilateral pleural effusions. Grossly the unopacified liver, gallbladder, pancreas, spleen and adrenal glands demonstrate to be wit hin normal limits, no significant focal lesions were identified. The kidneys demonstrate to be atrophic with vascular calcifications. There is no evidence for nephr olithiasis and/or hydronephrosis. Grossly the unopacified stomach demonstrated presence of food content. Otherwise the stomach, small b owel and large bowel demonstrate to be within normal limits. There is no evidence for bowel dilatatio n pain/or free air. The appendix was not visualized although no significant inflammatory changes are seen within the right lower quadrant. The urinary bladder demonstrate to be within normal limits. The uterus demonstrate to be within reji l limits. There are no adnexal masses The aorta demonstrate vascular calcification as well as ossific ations of the visceral branches and iliac arteries. There is no retroperitoneal lymphadenopathy. There is no evidence for ascites. The bone windows demonstrate no significant abnormalities. Again id entified a proximal aspect of the right superficial femoral stent. IMPRESSION: No evidence for nephrolithiasis and/or hydronephrosis. Atrophic kidneys with vascular calcifications. Trace bilateral pleural effusions with prominence of the pulmonary markings perhaps suggesting early fluid overload. Mild cardiomegaly. Central line catheter in place. Electronically signed by: Huy Hummel MD 08/08/2021 2:33 AM HOTEL MANAGER Due to temporary technical issues with the PACS/Fluency reporting system, reports are being signed by the in house radiologist without review as a courtesy to ensure prompt reporting. The interpreting r adiologist is fully responsible for the content of the report.
[2021-08-08 14:17] VITALS: TEMP 97.9
[2021-08-08] MEDS ORDERED: HYDRALAZINE HCL 20 MG/ML VIAL IV PRN (16:51)
[2021-08-08] MEDS ORDERED: METOPROLOL XL 50 MG TAB PO ONE (17:00)
[2021-08-08] MEDS ORDERED: AMLODIPINE 10 MG TAB PO SCH (17:00)
[2021-08-08 17:08] VITALS: O2SAT 96
[2021-08-08 17:23] VITALS: BP 142/78
--- NOTE | 2021-08-08 20:30 | P.DS ---
Admission Date: 08/08/21 Discharge Date: 08/08/21 Disposition: ROUTINE DISCHARGE Discharge Condition: GOOD Reason for Admission: Hyperkalemia Consultations: Nephrology Dr. Morin Procedures: Assessment: ESRD on HD with noncompliance and hyperkalemia Abdominal painlikely due to gastroparesis Acute on chronic diastolic congestive heart failure Diabetes mellitus type 2insulin-dependent Hypertension Seizure disorder Brief History of Present Illness: 40-year-old female with history of ESRD on HD MWF, CHF, gastroparesis, diabetes mellitus type 2insulin-dependent, hypertension and seizure disorder presents emergency department for abdominal pain. Patient also reports that she missed dialysis the last 2 times, last dialysis was on Wednesday the . Patient was evaluated here in the emergency department her labs were significant for white blood cell count 3.4 Red blood cell 2.8 hemoglobin 8.6 hematocrit 26 platelets 96 potassium 6.3 chloride 110 carbon dioxide 19 BUN 79 creatinine 11.3 GFR 4 BNP greater than 175,000. Patient with peaked T waves on EKG was given potassium cocktail in the emergency department ED provider wishes to admit under observation for hyperkalemia. CT abdomen pelvis noncontrast pending to further evaluate abdominal pain although this is presumed to be related to patient's chronic gastroparesis, she reports that the pain is similar. Hospital Course: Patient was admitted overnight, had acute hemodialysis during the day today with feeling much better after completion of dialysis and was discharged home. Vital Signs/Physical Exam: Temp Pulse Resp BP Pulse Ox 97.9 F 85 20 142/78 H 96 08/08/21 16:00 08/08/21 18:03 08/08/21 16:00 08/08/21 18:03 08/08/21 16:00 General: Alert, In no apparent distress, Oriented x3 HEENT: Atraumatic, PERRLA, EOMI Neck: Supple, JVD not distended Respiratory: Clear to auscultation bilaterally, Normal air movement Cardiovascular: Regular rate/rhythm, Normal S1 S2 Gastrointestinal: Normal bowel sounds, No tenderness Musculoskeletal: No tenderness Integumentary: No rashes Neurological: Normal speech, Normal tone, Normal affect Lymphatics: No axilla or inguinal lymphadenopathy Laboratory Data at Discharge: WBC 3.40 K/uL (4.3-10.9) L D 08/07/21 23:40 Hgb 8.6 g/dL (12.0-15.0) L D 08/07/21 23:40 Hct 26.0 % (36.0-45.0) L D 08/07/21 23:40 Plt Count 96 K/uL (152-406) L* 08/07/21 23:40 PT 12.9 SECONDS (9.5-12.5) H 08/07/21 23:40 INR 1.12 08/07/21 23:40 Sodium 141 mmol/L (136-145) 08/08/21 05:43 Potassium 5.3 mmol/L (3.5-5.1) H 08/08/21 05:43 BUN 80 mg/dL (7-18) H 08/08/21 05:43 Creatinine 11.30 mg/dL (0.55-1.3) H* 08/08/21 05:43 Glucose 110 mg/dL (74-106) H 08/08/21 05:43 Magnesium 2.1 mg/dL (1.8-2.4) 08/07/21 23:40 Total Bilirubin 0.4 mg/dL (0.2-1.0) 08/08/21 05:43 AST 17 U/L (15-37) 08/08/21 05:43 ALT 21 U/L (12-78) 08/08/21 05:43 Alkaline Phosphatase 64 U/L (45-117) 08/08/21 05:43 Lipase 255 U/L (73-393) 08/07/21 23:40 Home Medications: Calcium Acetate [Phoslo*] 2 cap PO TIDWM 03/05/20 Sertraline [Zoloft*] 50 mg PO DAILY 03/05/20 Trazodone HCl 150 mg PO BEDTIME PRN PRN 03/05/20 Pantoprazole Sodium [Protonix] 1 tab PO DAILY 30 Days #30 tablet. 03/06/20 Gabapentin 1 tab PO BID 07/22/20 Metoprolol Succinate 25 mg PO DAILY 07/22/20 Pravastatin Sodium 1 tab PO DAILY 07/22/20 Doxazosin [Cardura*] 4 mg PO BEDTIME 09/30/20 Furosemide [Lasix*] 40 mg PO BID 09/30/20 Ondansetron [Zofran (Odt)*] 4 mg PO Q8H PRN 14 Days #30 tab 10/01/20 Ascorbate Calcium [Vitamin C] 500 mg PO TID #90 tablet 10/28/20 Nepro Shake [Nepro*] 237 ml PO TID #60 can 11/07/20 Cholecalciferol (Vitamin D3) [Vitamin D 5,000 IU Cap*] 5,000 unit PO DAILY #30 cap 01/16/21 Hydrocodone 5/APAP 325 [[place] 5/325*] 1 tab PO Q6H PRN #30 tab 07/02/21 clonazePAM [Klonopin] 0.5 mg PO TID PRN #60 tablet 07/02/21 Heparin [Heparin 1,000 units/mL *] 6,000 unit IV EVERY HD PRN vial 07/31/21 Mannitol 25% [Mannitol*] 12.5 gm IV EVERY HD PRN vial 07/31/21 Metoclopramide [Reglan*] 5 ml PO TID PRN 07/31/21 Diet: renal Followup: Jose Miguel Morin DO [ACTIVE - CAN ADMIT] - NONE,NONE [Primary Care Provider] - Time spent managing pt's care (in minutes): 55
== END 2021-08-08 18:56 | disposition home or self-care (01) ==
LOC: ER 21:46 → ERHOLD 08-08 01:58 → 2ND 08-08 14:04
PROVIDERS: ADMIT Internal Medicine; ATTEND Internal Medicine
PROC: 5A1D70Z Performance of Urinary Filtration, Intermittent, Less than 6 Hours Per Day (ICD-10-PCS; principal; 2021-08-08)
DX: E87.5 Hyperkalemia (principal); I13.2 Hypertensive heart and chronic kidney disease with heart failure and with stage 5 chronic kidney disease, or end stage renal disease; E11.22 Type 2 diabetes mellitus with diabetic chronic kidney disease; N18.6 End stage renal disease; I50.33 Acute on chronic diastolic (congestive) heart failure; K31.84 Gastroparesis; G40.909 Epilepsy, unspecified, not intractable, without status epilepticus; Z23 Encounter for immunization; E44.0 Moderate protein-calorie malnutrition; Z68.29 Body mass index [BMI] 29.0-29.9, adult; D63.1 Anemia in chronic kidney disease; Z91.15 Patient's noncompliance with renal dialysis; Z99.2 Dependence on renal dialysis; Z20.822 Contact with and (suspected) exposure to COVID-19
CPT/HCPCS: 93005; 85025; 80048; 36415; 83735; 85610; 82947 ×5; 80076; 84484; 83690; 80053; 83880; 74176; 71045; 90471 ×2; 90732; 96372; 99285; 90935; U0003; J2765; Q2035; J2354; J1170; J1644; J0610; J7030; J2405; G0257; G0378 ×2

== ENCOUNTER 2021-08-20 05:33 | Inpatient (IN) | payer OTHER ==
--- OUTSIDE RECORDS SUMMARY | 2021-08-20 05:53 | XMS REPORT | Continuity of Care Document ---
:1980 Author Organization [facility] t Address [address] [place] [address] Care Team Providers Name Role Phone Vivien [...] Policy Number Effective Date Expiration Date S [facility] [id number] 2021 (MEDICARE 00:00:00 REPLACEMENT HMO) Advance Directives Directive Decision Effective Termination Comments Source Date Date Healthcare Agents on N/A [facility] FileNameRelationshEn[facility] Agent Medical RelationshipCommunicationFulton County Medical Center FoundSibling3 - First Alternate Agent (Medical Power of Business Development Agent) Problems Condition Condition Condition Status Onset Resolution Last Treating Co mments Source Name Details Category Date Date Treatment Clinician Date AVF AVF Disease Active Univers (arteriove (arteriove 9 it y of nous nous 00:00: [place] fistula) fistula) 00 Medica l Branch End [...] Memoria HELENA/IBS-D 7 21:41:00 l /ANEMIA 00:00: Vin GASTROPARE 00 HELENA/IBS-D /ANEMIA Active 01/03/2021 [facility] NEW Diagnosis Active 2020-12-24 Mem oria PATIENT GI 4-26 10:39:00 l CONSULT NEW 00:00: [place] REFRACTORY PATIENT GI 00 GASTRO CONSULT REFRACTORY GASTRO Active 10/14/2020 [facility] Malfunctio Malfunctio Disease Active Overview : Univers n of n of 6-03 Formattin ity of arterioven arterioven 00:00: g of this [place] ous ous 00 note Medical dialysis dialysis might be Bran ch fistula, fistula, different initial initial from the encounter encounter original. Added automatic ally from request for surgery [id number] Candidiasi Candidiasi Disease Active U nivers s [...] NEW 00:00: Vin EVALUATION 00 Active 07/12/2018 [facility] Pyogenic Pyogenic Disease Active 2017-06 Overview: Un lori granuloma granuloma 0-17 Formattin i ty of of of 00:00: g of this [place] conjunctiv conjunctiv 00 note Me dical a, right a, right might be Bran ch different from the original. Added automatic ally from request for surgery [id number] Right eye Right eye Disease Active Overview: Univers affected affected 02-22 Formattin ity of by by 00:00: g of this [place] proliferat proliferat 00 note Me dical montse montse might be Branch diabetic diabetic different retinopath retinopath from the y with y with original. traction traction Added retinal retinal automatic detachment detachment ally from not not request involving involving for macula, macula, surgery associated associated [id number] with type with type 1 diabetes 1 diabetes mellitus mellitus Pain Pain Disease Active Univers management management 01-18 it y of 00:00: [place] 00 Medical Branch Blind Blind Disease Active Overview: Univer s painful painful 12-16 Formattin ity o f eye eye 00:00: g of this [place] 00 note Medical might be Branch different from the original. Eviscerat ion OS on 8 - Dr. 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 Added automatic ally from request for surgery [id number] ESRD (end ESRD (end Disease Active Overview: Univers stage stage 6-12 Formattin ity of renal renal 00:00: g of this [place] disease) disease) 00 note Medica l on on might be Branch dialysis dialysis different from the original. Added automatic ally from request for surgery [id number] Diabetes Diabetes Disease Active Metho di mellitus [...] Added automatic ally from request for surgery [id number] Neovascula Neovascula Disease Active 2018-0 U nivers r r 1-18 ity of glaucoma, glaucoma, 00:[place] eye 00 Medica l Branch Increased Increased Disease Active Uni vers intraocula intraocula 1-18 [place] r pressure [place] Fall Fall Disease Active 2016-06 Univers 0-13 ity of 00:00: [place] 00 Medical Branch Pneumonia Pneumonia Disease Active 2016-06 Uni vers 0-11 ity of 00:00: [place] Medical Branch Diabetes Diabetes Disease Active 2016-06 Overview: Un lori mellitus mellitus 0-05 Formattin ity of 00:00: g of this [place] 00 note Medical might be Branch different from the original. Added automatic ally from request for surgery [id number] Pseudotumo Pseudotumo Disease Active U nivers r cerebri r cerebri 9-25 ity of 00:00: [place] 00 [facility] Branch Liver Liver Disease Active [facility] [...] ve 7-16 [facility] emergency 00:00: [facility] Peripheral Peripheral Disease Active U viviana neuropathy neuropathy 7-16 it y of 00:00: [place] [address] Medical Branch ACUTE RESP Diagnosis Active 2016-09-09 Memoria FAILURE 2- 09:11:00 l ACUTE 00:00: Vin RESP 00 FAILURE Active 07/23/2016 [facility] CONGESTION Diagnosis Active 2016-07-24 Memoria AMD 2- 01:49:00 l DIARRHEA 00:00: [address] [address] [place] CONGESTION 00 AMD DIARRHEA Active 07/23/2016 [facility] Congestive Congestive Disease Active 2015-06 U T heart heart - Health failure failure 00:00: (CHF) (CHF) 00 SOB/SWELLI Diagnosis Active 2015-062016-06-[address] [facility] NG 2- 15:48:00 l 00:00: [place] SOB/SWELLI 00 NG Active 6 [facility] CHF/RENAL Diagnosis Active 2015-062016-06-24 Memoria DISEASE 2- 15:35:00 l 00:00: [place] CHF/RENAL 00 DISEASE Active 06/10/2016 [facility] Obesity Obesity Disease Active 2015-06 Univers (BMI (BMI 0-12 ity of 30-39.9) 30-39.9) 00:00: [place] [address] Medical Branch Hyperosmol Hyperosmol Disease Active 2015-06 U viviana ar ar 0-12 ity of non-ketoti [place]ketoti [place] state in 00 Me dical patient patient Branch with 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 Hyperglyce Hyperglyce Disease Active 2015-06 U viviana maryam maryam 0-11 ity of 00:00: [place] [address] Medical Branch Diabetic Diabetic Disease Active Unive rs ulcer of ulcer of 5-07 ity of both feet both feet 00:00: Amisha lombardo associated associated 00 Me dical with type with type Bran ch 2 diabetes 2 diabetes mellitus mellitus SANJUANA (acute SANJUANA (acute Disease Active U viviana kidney kidney 5-07 ity of injury) injury) 00:00: [place] [address] Medical Branch Depression Depression Disease Active U [...] 00:00: [place] cancer in cancer in 00 [facility] female female Branch Family Family Disease Active [...] Memoria PAIN, 1-06 05:44:00 l SEIZURES 00:00: [place] ABDOMINAL 00 PAIN, SEIZURES Active 06/26/2013 [facility] ABD PAIN Diagnosis Active 2012-062013-04-19 M emoria 0- 21:51:00 l ABD PAIN 19:00: Jake n 00 Active 04/14/2013 [facility] GASTROPERI Diagnosis Active 2012-09-13 Memoria SIS 2-12 15:17:00 l 00:00: Vin GASTROPERI 00 SIS Active 08/02/2012 [facility] ABDOMINAL Diagnosis Active 2012-03-14 Memoria PAIN 03-14 16:56:00 l 14:00: [place] ABDOMINAL 00 PAIN Active 03/14/2012 [facility] NAUSEA, Diagnosis Active 2012-03-14 Me moria VOMITING 03-14 13:25:00 l NAUSEA, 08:00: Vin VOMITING 00 Active 03/14/2012 [facility] N/V Diagnosis Active 2011-12-08 Mem oria INABILITY 11-27 11:14:00 l TO N/V 00:00: Vin TOLERATE INABILITY 00 PO TO TOLERATE PO Active 2 [facility] VOMITTING Diagnosis Active 2011-11-28 Memoria 11-27 16:28:00 l 00:00: [place] VOMITTING 00 Active 11/28/2011 [facility] VOMITTING, Diagnosis [facility] HIGH BLOOD 09-17 09:45:00 l SUGAR 00:00: [address] [address] [place] VOMITTING, 00 HIGH BLOOD SUGAR Active 09/18/2011 [facility] Methicilli Problem Active 2021-01-31 M emoria n 08-31 22:29:25 l resistant 00:00: [address] Staphyloco Methicilli 00 ccus n aureus resistant (organism) Staphyloco ccus aureus (organism) Active 09/01/2011 Problem 01/31/2021 09/01/11 - Elbow woundProbl em added by Discern Expert. [facility] MRSA Problem Active 2012-03-16 Memor ia - 09:11:30 l MRSA 00:00: Vin 00 Active 09/01/2011 Problem 03/16/2012 - Elbow [id number] emily added by Discern Expert. [facility] VOMITING, Diagnosis Active 2011-09-01 Memoria BLOOD 08-30 03:19:00 l SUGAR 00:00: [address] READINGS VOMITING, 00 HIGH BLOOD SUGAR READINGS HIGH Active 08/31/2011 [facility] ELBOW Diagnosis Active 2011-09-10 Mem oria ABSCESS/HY 08-30 16:26:00 l PERGLYCEMI ELBOW 00:00: Nidia nn A ABSCESS/HY 00 PERGLYCEMI A Active 08/31/2011 [facility] Hypokalemi Problem Active 2012-03-16 M emoria a 3-04 09:11:30 l 00:00: Vin Hypokalemi 00 a Active 08/23/2011 Problem 03/16/2012 [facility] DKA Diagnosis Active 2011-08-24 Mem oria 11:27:00 l DKA 00:00: Vin 00 Active 08/19/2011 [facility] VOMITING Diagnosis Active 2011-08-19 M emoria 16:21:00 l VOMITING 00:00: Jake n 00 Active 08/19/2011 [facility] Final: Problem 2016-08-02 Memor ia Acute 02:46:22 l respirator Final: Herm naeem y failure, Acute unspecifie respirator d whether y failure, with unspecifie hypoxia or d whether hypercapni with a hypoxia or hypercapni a 08/02/2016 [facility] Hypoglycem Problem Inactiv 2012-03-16 Memoria ia e 09:11:30 l Vin Hypoglycem ia Inactive Problem 03/16/2012 [facility] Hypoglycem Problem Inactiv 2013-04-22 Memoria ia e 04:46:33 l (disorder) Jake n Hypoglycem ia (disorder) Inactive Problem 04/22/2013 [facility] Gastropare Problem Resolve 2021-01-31 Memoria sis d 22:29:25 l (disorder) Jake gonzalez Gastropare sis (disorder) Resolved Problem 01/31/2021 [facility] Hypertensi Problem Resolve 2021-01-31 Memoria ve d 22:29:25 l disorder, Vin systemic Hypertensi arterial ve (disorder) disorder, systemic arterial (disorder) Resolved Problem 01/31/2021 [facility] Psychiatri Problem Resolve 2021-01-31 Memoria c d 22:29:25 l behavioral Jake n disability Psychiatri (finding) c behavioral disability (finding) Resolved Problem 01/31/2021 [facility] Seizure Problem Resolve 2021-01-31 Mem oria (finding) d 22:29:25 l Seizure [address] (finding) Resolved Problem 01/31/2021 [facility] Hypertensi Problem Active 2012-03-16 M emoria on 09:11:30 l [address] Hypertensi on Active Problem [facility] Hypomagnes Problem Active 2013-04-22 M emoria emia 04:46:33 l [address] Hypomagnes emia Active Problem 04/22/2013 [facility] Nausea and Problem Active 2012-03-16 M emoria vomiting 09:11:30 l Nausea Vin and vomiting Active Problem 03/16/2012 [facility] ENCNTR FOR Diagnosis Active 2020-12-24 Memoria GENERAL 10:39:00 l ADULT ENCNTR [address] [address] [place] MEDICAL FOR EXAM W/ GENERAL ADULT MEDICAL EXAM W/ Active [facility] DMI Diagnosis Active 2011-08-24 Mem oria KETOACD 11:27:00 l UNCONTROLD DMI Jake n KETOACD UNCONTROLD Active [facility] OTHER Diagnosis Active 2011-09-10 Mem oria GENERAL 16:26:00 l SYMPTOMS OTHER [address] GENERAL SYMPTOMS Active [facility] HEART Diagnosis Active 2016-06-24 Mem oria FAILURE, 15:35:00 l UNSPECIFIE HEART Nidia nn D FAILURE, UNSPECIFIE D Active [facility] ACUTE Diagnosis Active 2016-09-09 Mem oria RESPIRATOR 09:11:00 l Y FAILURE, ACUTE Nidia nn UNSP W RESPIRATOR HYPOXI Y FAILURE, UNSP W HYPOXI Active [facility] Nausea and Problem Resolve 2021-01-31 2021-01-31 Memoria vomiting d 6-10 22:29:25 22:29:25 l (disorder) Nausea 00:00: Herm naeem and 00 vomiting (disorder) Resolved 11/29/2011 Problem 01/31/2021 [facility] Hypokalemi Problem Resolve 2021-01-31 2021-01-31 Memoria a d 3-04 22:29:25 22:29:25 l (disorder) 00:00: Jkae n Hypokalemi 00 a (disorder) Resolved 08/23/2011 Problem 01/31/2021 [facility] Disorder Problem Resolve 2021-01-31 2021-01-31 Memoria of d 3-04 22:29:25 22:29:25 l magnesium Disorder 00:00: Her braden metabolism of 00 (disorder) magnesium metabolism (disorder) Resolved 08/23/2011 Problem 01/31/2021 [facility] Hyperglyce Problem Resolve 2021-01-31 2021-01-31 Memoria maryam d 3 22:29:25 22:29:25 l (disorder) 00:00: Jake n Hyperglyce 00 maryam (disorder) Resolved 08/20/2011 Problem 01/31/2021 [facility] Ketoacidos Problem Resolve 2021-01-31 2021-01-31 Memoria is in d 22:29:25 22:29:25 l diabetes 00:00: [address] mellitus Ketoacidos 00 (disorder) is in diabetes mellitus (disorder) Resolved 08/19/2011 Problem 01/31/2021 [facility] DKA Problem Resolve 2013-04-22 2013-04-22 Memoria (diabetic d 04:46:33 04:46:33 l ketoacidos DKA 00:00: Jake gonzalez es) (diabetic 00 ketoacidos es) Resolved 08/19/2011 Problem 04/22/2013 [facility] History of Past Illness Condition Condition Condition Status Onset Resolution Last Treating Co mments Source Name Details Category Date Date Treatment Clinician Date Discharge Problem 2014-06-28 2014-06-28 Memoria Diagnosis: 1-06 16:34:37 16:34:37 l Gastropare 06:00: Jake n sis Discharge 00 Diagnosis: Gastropare sis 06/26/2014 06/28/2014 [facility] Hyperglyce Problem Inactiv 2012-03-16 2012-03-16 Memoria maryam e 3- 09:11:30 09:11:30 l 00:00: Vin Hyperglyce 00 maryam Inactive 08/20/2011 Problem 03/16/2012 [facility] Allergies, Adverse Reactions, Alerts Allergy [...] s to drug Cephalex Propensi Active Hives 2017- Univer s in ty to 01-18 ity of adverse 00:00: [place] reaction 00 Medical s Branch CEPHALEX DRUG Active Hives Univers IN INGREDI 01-18 ity of 00:00: [place] 00 Medical Branch Cephalex Allergy Active Hives 2018-0 [place] in to 01-18 Health substanc 00:00: e 00 Cephalex Propensi Active Hives 2017- Method i in ty to 01-18 st adverse 00:00: Hospita reaction 00 l s to drug ADHESIVE DRUG Active Med Rash 2016-06 Univers TAPE-KERLINE 2-14 ity of ICONES 00:00: [place] 00 Medical Branch Adhesive Drug Active Swelling 2016-06 UT Tape Allergy 2-14 Health 00:00: 00 Adhesive Propensi Active Swelling 2016-06 Tears off M ethodi Tape-Kerline ty to 2-[address] icones adverse 00:00: Hospita reaction 00 l s to drug Nitrofur Propensi Active Other - See Reports [...] ers SIN INGREDI 01-03 ity of 00:00: [place] 00 Medical Branch Nitrofur Allergy Active Anaphylaxis Other [facility] antoin to 01-03 reaction( Health substanc 00:00: s): liver e 00 failure, Other (see comments) , Other - See commentsL iver failure Reports transient liver disease with nitrofura ntoinRepo rts transient liver disease with nitrofura ntoinLive r failure Reports transient liver disease with nitrofura ntoinLive r failure Liver failure Nitrofur Propensi Active Other (See Other Me [...] Reports transient liver disease with nitrofura ntoin Zolpidem Drug Active Other (See confusion C [...] 01-03 [facility] KETOROLA DRUG Active High Swelling Univer s C INGREDI 6-25 ity of TROMETHA 00:00: [place] MINE 00 Medical Branch Ketorola Allergy Active Swelling throatthr UT c to 625 oatthroat Health Trometha substanc 00:00: mine e Ketorola Propensi Active Swelling THROAT Meth frantz c ty to 12-13 st Trometha adverse 00:00: Hospita mine reaction 00 l s to drug Fluphena Propensi Active Other (See Other Me thodi zine ty to Comments) 10-17 reaction( st adverse 00:00: s): ARM Hospita reaction 00 NUMBNESS l s to drug Phenylep Allergy Active Other UT hrine to 10-17 reaction( Health substanc 00:00: s): Hives e 00 Phenylep Propensi Active Hives Other Method i hrine ty to 10-17 reaction( st adverse 00:00: s): Hives Hospit a reaction 00 l s to drug Fluphena Allergy Active Other UT zine to [...] Active Med Other-Cmnt Univ ers TARTRATE INGREDI 1 ity of 00:00: [place] 00 Medical Branch Zolpidem Propensi Active Other (See forgetful Methodi ty to Comments) [address] adverse 00:00: reaction( Hospit a [...] [place]ai[place] reaction 00 l s to drug PROLEX DRUG Active Other-Cmnt Univer s [...] Hospita reaction 00 l s to drug Guaifene Allergy Active Hives Other [facility] sin to 12-30 reaction( Health substanc 00:00: s): Other e 00 (See Comments) , Other (see comments) , Other (See Comments) , Other (See Comments) , Other - See commentsn umbnessnu mbnessnum bnessnumb nessnumbn essnumbne ssnumbnes s Penicill Propensi Active Anaphylaxis 2010-06 U nivers ins ty to 2-27 ity of adverse 00:00: [place] reaction 00 Medical s Branch PENICILL Drug Active Anaphylaxis 2010-06 Uni vers INS Class 2-27 ity of 00:00: [place] 00 Medical Branch Penicill Propensi Active Shortness Of 2010-06 Airway Methodi ins ty to Breath [address] adverse 00:00: her Hospita reaction 00 reaction( l s to s): drug HivesAirw ay closure Penicill Allergy Active Shortness of 2011- Other U T ins to breath 2-27 reaction( [facility] 00:00: s): e 00 HivesAirw ay closure penicill penicill Active Memori a ins ins l Vin codeine codeine Active Memoria l Vin morphine morphine Active Memori a l Vin lisinopr lisinopr Active Memori a il il l Vin Adhesive Adhesive Active Memori a Tape Tape l [address] Ambien Ambien Active Memoria l Vin Prolex Prolex Active Memoria DM DM l [address] penicill Drug Active [facility] lisinopr Drug Active [facility] Ambien Drug Active [facility] Prolixin Drug Active [facility] penicill Drug Active [facility] lisinopr Drug Active [facility] Ambien Drug Active [facility] Prolixin Drug Active [facility] Tape Other Active [facility] penicill Drug Active [facility] lisinopr Drug Active [facility] Ambien Drug Active [facility] Prolixin Drug Active [facility] codeine Drug Active [facility] penicill Drug Active [facility] lisinopr Drug Active [facility] Ambien Drug Active [facility] Prolixin Drug Active [facility] codeine Drug Active [facility] penicill Drug Active [facility] lisinopr Drug Active [facility] Ambien Drug Active [facility] Prolixin Drug Active [facility] penicill Drug Active [facility] lisinopr Drug Active [facility] Ambien Drug Active [facility] Prolixin Drug Active [facility] penicill Drug Active [facility] lisinopr Drug Active [facility] Ambien Drug Active [facility] Prolixin Drug Active [facility] Social History Social Habit Start Date Stop Date Quantity Comments Source History of tobacco Cigarette Smoker [facility] use Hospital Exposure to Yes [facility] SARS-CoV-2 (event) Hospit al Alcohol intake 2021-06-18 2021-06-18 Ex-drinker [facility] 00:00:00 00:00:00 (finding) Hospital Cigarettes smoked 2021-05-14 2021-05-14 [facility] current (pack per 00:00:00 00:00:00 Hospita l day) - Reported Cigarette 2021-05-14 2021-05-14 [facility] pack-years 00:00:00 00:00:00 Hospital Tobacco use and 2021-05-14 2021-05-14 Smokeless tobacco [facility] exposure 00:00:00 00:00:00 non-user Hospital Social History 2020-12-24 2020-12-24 [facility] fatou 15:49:37 15:49:37 Tobacco Comment 2017-11-12 2017-11-12 5 cigarettes per [facility] 00:00:00 00:00:00 day Hospital Sex Ass[birth year] At [birth year] [facility] 00:00:00 00:00:00 Hospital Smoking Status Start Date Stop Date Source Smokes tobacco daily 2021-05-14 00:00:00 [facility] Former smoker 2020-06-27 00:00:00 2020-06-27 00:00:00 [facility] Medications Ordered Filled Start Stop Current Ordering Indication Dosage Frequency Signature Comments Components Source Medication Medication Date Date Medication? Clinician (SIG) Name Name glipiZIDE Yes 5mg Take 5 mg Met hodi (GLUCOTROL) 1-[address] 5 MG tablet 13:02: daily. Hosp jo-ann 39 l calcium Yes 667mg Q.[id number] Take 667 Methodi acetate 1-[id number] (PHOSLO) 13:02: 3D mouth [...] 39 nightly. l calcium 2021-0 Yes 1334mg Q.[id number] Take 1,334 Methodi acetate,domingo 1-18 [id number] mg by s t sphat bind, 13:02: 3D mouth 3 Hos whit (Phoslyra) 39 (three) l 667 mg (169 times a mg day. calcium)/5 mL solution cyproheptad Yes 4mg Q.[id number] Take 4 mg Methodi ine -18 [id number] mouth [address] (PERIACTIN) 13:02: 3D (three) Hos whit 4 mg tablet 39 times a l day as needed for allergies. buPROPion Yes 300mg QD Take 300 Met hodi XL 1-[address] (WELLBUTRIN 13:02: mouth Hospi ta XL) 300 MG 39 daily. l 24 hr tablet ascorbic Yes 500mg Q.[id number] Take 500 Methodi acid, -[id number] vitamin C, 13:02: 3D [...] mg at night vancomycin 2020-06- No 750mg Q.[id number] Infuse 750 Methodi 750 mg in 07-08 [id number] mg [address] a [address] sodium 00:00: 05:59 3W venous Hospita chloride 00 :00 catheter 3 l 0.9% 250 mL (three) IVPB times a week for 19 days. Administer 3 times weekly in dialysis HYDROcodone 2020-06- No [id number] 1{tbl} Q6H Take 1 Methodi -acetaminop 06-24 [...] 30 per tablet days. HYDROcodone 2020-06 No [id number] 2{tbl} Q8H Take 2 Methodi -acetaminop 07-26 12-13 tablets by s t hen (NORCO) 00:00: 05:59 mouth Hosp jo-ann 5-325 mg 00 :00 every 8 l per tablet (eight) hours as needed for severe pain for up to 7 days .acute pain. Max Daily Amount: 6 tablets predniSONE 2020-06- No [id number] Take M ethodi (DELTASONE) 07-18-05 Prednisone s [...] 0-03 by mouth. ity of tablet 11:08: [place] [address] Medical Branch aspirin 81 2020-06 Yes 81mg Take 1 Unive rs mg chewable 0-03 tablet by ity of tablet 11:08: mouth [place] [address] daily. Medical Branch divalproex 2020-06 Yes 500mg Take 500 Un lori ER 0-01 mg by ity of (DEPAKOTE 23:08: mouth 2 [place] ER) 500 mg 36 (two) Medical 24 hr times Branch tablet daily. gabapentin 2020-06 Yes 100mg Take 100 Un lori 100 mg 0-01 mg by ity of capsule 23:08: mouth 2 [place] [address] (two) Medical times Branch daily. vitamin C 2020-06 Yes 2000mg Take 2,000 Univers with sia 0-01 mg by ity of hips 23:08: mouth 2 [place] (VITAMIN C) 36 (two) Medical 1,000 mg times Branch tablet daily. metoprolol 2020-06 Yes 50mg Take 50 mg U nivers tartrate 50 0-01 by mouth ity of mg tablet 23:08: daily. [address] Branch folic 2020-06 Yes 800mg Take 800 Univers acid/vit B 0-01 mg by ity of complex and 23:08: mouth [place] C 36 daily. Medical (DIALYVITE Branch 800 ORAL) linagliptin 2020-06 Yes Take by Un lori (TRADJENTA) 0-01 mouth. ity of 5 mg tablet 23:08: [address] Branch spironolact 2020-06 Yes 50mg Take 50 mg Univers one 50 mg 0-01 by mouth ity of tablet 23:08: daily. [address] Branch pravastatin 2020-06 Yes 40mg Take [...] by mouth ity of tablet 23:08: daily. [place] [address] Medical Branch calcium 2020-06 Yes 667mg Take 667 Unive rs acetate 667 0-01 mg by ity of mg capsule 23:08: mouth 3 [place] (three) Medical times Branch daily with meals. cetirizine 2020-06 Yes 1{tbl} Take 1 Uni vers HCl/pseudoe 0-01 tablet by ity of phedrine 23:08: mouth [place] (ZYRTEC-D 36 daily. Medical ORAL) Branch furosemide 2020-06 Yes 40mg Take 40 mg U nivers 40 mg 0-01 by mouth 2 ity of tablet 23:08: (two) [place] [address] times Medical daily. Branch divalproex 2020-06 Yes 500mg Take 500 Un lori ER 0-01 mg by ity of (DEPAKOTE 23:08: mouth 2 [place] ER) 500 mg (two) Medical 24 hr times Branch tablet daily. gabapentin 2020-06 Yes 100mg Take 100 Un lori 100 mg 0-01 mg by ity of capsule 23:08: mouth 2 [place] [address] (two) Medical times Branch daily. vitamin C 2020-06 Yes 2000mg Take 2,000 Univers with sia 0-01 mg by ity of hips 23:08: mouth 2 [place] (VITAMIN C) (two) Medical 1,000 mg times Branch tablet daily. metoprolol 2020-06 Yes 50mg Take 50 mg U nivers tartrate 50 0-01 by mouth ity of mg tablet 23:08: daily. [place] [address] Medical Branch folic 2020-06 Yes 800mg Take 800 Univers acid/vit B 0-01 mg by ity of complex and 23:08: mouth [place] C daily. Medical (DIALYVITE Branch 800 ORAL) linagliptin 2020-06 Yes Take by Un lori (TRADJENTA) 0-01 mouth. ity of 5 mg tablet 23:08: [place] [address] Medical Branch spironolact 2020-06 Yes 50mg Take 50 mg Univers one 50 mg 0-01 by mouth ity of tablet 23:08: daily. [place] [address] Medical Branch pravastatin 2020-06 Yes 40mg Take 40 mg Univers 40 mg 0-01 by mouth ity of tablet 23:08: daily. [place] [address] Medical Branch mv-mn/iron/ 2020-06 Yes 1{capsu Take 1 U nivers folic 0-01 le} capsule by ity of acid/herb 23:08: mouth [place] 190 36 daily. Medical (VITAMIN D3 Branch COMPLETE ORAL) SERTraline 2020-06 Yes 50mg Take 50 mg U nivers 50 mg 0-01 by mouth ity of tablet 23:08: daily. [address] Branch calcium 2020-06 Yes 667mg Take [...] = 1 mL, l 1999 19:37: IV, [place] units/mL 00 Q-M-W-F, preservativ to be e-free [...] 01-23 (Same as: l 22:54: Mag-Ox Vin 00 400) Magnesium oxide 285bp=168x g elemental magnesium Dose=____m g magnesium oxide (___mg elemental magnesium) Coreg No Notes: Memoria 01-23 Give with l 02:00: food. Vin 00 (Same As: Coreg) Buspar No Notes: Memoria 01-22 (Same As: l 22:00: BuSpar) Vin 00 Fentanyl No Notes: Memoria 01-22 (Same as: l 21:06: Sublimaze) Vin 00 Preservat montse free. Norvasc No Notes: Memoria 8- (Same as: l 16:47: Norvasc) [place] 00 Wellbutrin No Notes: Memor ia 01-22 [...] 01-21 25 mL, l (D50W) 20:01: Route: [place] 00 IVP, Drug Form: INJ, Dosing Weight [...] Same as: l 200 mL 18:26: Cardene [place] (Titrate.) 00 Concentrat IV 40 mg ion: (0.2 mg /1 ml ) Cyproheptad No 4 mg, 1 Mem oria ine 01-21 tab, l 18:00: Route: PO, [place] Drug form: TAB, TID, Dosing Weight 72, kg, Start date: 01/21/21 13:00:00 CDT, Duration: 30 day, Stop date: 02/20/21 9:00:00 CDT Albuterol No Notes: SEE Me moria 01-21 RT l 17:49: DOCUMENTAT [place] ION (Same as: Proventil) albuterol No 180 [...] 0.9% 01-21 Same as: l 17:31: BD [place] Posiflush Sterile propofol 10 No Notes: If M emoria mg/mL 01-21 Diprivan - l (Titrate.) 17:31: change Nidia nn IV 1,000 mg 00 bottle & tubing every 12 hr Per state nursing law propofol can only be given by a nurse if patient is intubated or being intubated (unless the nurse is a FINISH FILER). Same as: Diprivan midazolam No Route: IV, Me moria (ANES) 01-21 Drug form: l 17:18: SOLN, [place] 00 ONCE, Stop date: 01/21/21 12:18:00 CDT fentaNYL No Route: IV, Mem oria (ANES) 01-21 Drug form: l 17:18: INJ, ONCE, [place] Stop date: 01/21/21 12:18:00 CDT niCARdipine No [...] janice 01-21 (Same as: l 13:16: Mylicon, [place] 00 Phazyme, Genasyme) calcium No See Memoria [...] n [XIFAXAN] 00 tab, 2 Refill(s), Pharmacy: [facility], 154.94, cm, 12/24/20 10:43:00 CDT, Height, 71.818, kg, 12/24/20 10:43:00 CDT, Weight {2 (480 ML Yes See Memoria Magnesium 12-24 Instructio l Sulfate 18:12: ns, take Jake n 0.0277 00 as MEQ/ML / directed, potassium give sulfate clenpiq if 0.0374 not MEQ/ML / covered by sodium insurance, sulfate # 1 ea, 0 0.257 Refill(s), MEQ/ML Oral Pharmacy: Solution) } [facility] [Suprep 808, Bowel Prep 154.94, [...] 0 Memor ia 7-06 Refill(s) l 15:53: Vin 00 Dialyvite 0 Yes 0 Memoria 5000 [...] Take 7.5 UT (Buspar) 6-19 mg by [facility] 7.5 MG 00:00: mouth 2 tablet 00 (two) times a day. buPROPion Yes 300mg Take 300 UT XL 6-19 mg by [facility] (Wellbutrin 00:00: mouth 1 XL) 300 [...] hr each day. tablet ascorbic Yes 500mg Q.[id number] Take 500 UT acid 5-15 [id number] mg by [facility] (Vitamin C) 00:00: 3D mouth 3 500 MG 00 (three) tablet times a day. sucralfate Yes 1{tbl} QD Take 1 UT (Carafate) 5-10 tablet by [facility] th 1 g tablet 00:00: mouth 1 00 (one) time each day. zinc Yes DAILY Univers sulfate 50 5-10 ity of mg zinc 00:00: [place] (220 mg) 00 Medical capsule Branch ondansetron 0 Yes 4mg Take 4 mg U nivers 4 mg 4-13 by mouth ity of disintegrat 00:00: [place]. [place] tablet 00 [facility] GLIPIZIDE 5 2020-0 Yes [id number] TAKE 1 Univers mg tablet -06 TABLET [...] by ity o f 00:00: mouth at [place] 00 bedtime. Medical Branch doxazosin 4 Yes 4mg Take 1 Univ ers mg tablet 1-07 tablet by ity o f 00:00: mouth at [place] 00 bedtime. Medical Branch glipiZIDE 5 2019-06- No [id number] 5mg Take 1 Univers mg tablet 07-01 [...] by ity of tablet 00:00: mouth at [place] [address] bedtime. Medical Branch traZODone Yes 150mg Take 150 Uni vers 150 mg 8-13 mg by ity of tablet 00:00: mouth at [place] [address] bedtime. Medical Branch erythromyci 2020- No [id number] .5[in_u Place 0.5 Univers n 5 mg/gram [...] l 59 Center hydrALAZINE 2017-0 Yes 100mg Q.[id number] Take [address] [facility] (APRESOLINE 7-20 [id number] mg by L ukes - ) 100 MG 15:20: 3D mouth 3 Medica l tablet 59 (three) Center times daily. magnesium 2017-0 Yes 400mg QD Take [address] [facility] oxide 7-20 mg by [facility] (MAG-OX) 15:20: mouth Medical 400 mg 59 daily. Center tablet metoclopram 2017-0 Yes 10mg Q.[id number] Take [address] [facility] gadiel HCl 7-20 [id number] by mouth 3 [facility] - (REGLAN) 10 [...] l 59 Center hydrALAZINE 2017-0 Yes 100mg Q.[id number] Take [address] [facility] (APRESOLINE 7-20 [id number] mg by L ukes - ) 100 MG 15:20: 3D mouth 3 Medica l tablet 59 (three) Center times daily. magnesium 2017-0 Yes 400mg QD Take [address] [facility] oxide 7-20 mg by [facility] - (MAG-OX) 15:20: mouth Medical 400 mg 59 daily. Center tablet metoclopram 2017-0 Yes 10mg Q.[id number] Take [address] [facility] gadiel HCl 7-20 [id number] by mouth 3 [facility] - (REGLAN) 10 [...] l 59 Center hydrALAZINE 2017-0 Yes 100mg Q.[id number] Take [address] [facility] [address] (APRESOLINE 7-20 [id number] mg by L ukes - ) 100 MG 15:20: 3D mouth 3 Medica l tablet 59 (three) Center times daily. magnesium 2017- Yes 400mg QD Take [address] [facility] [address] oxide 7-20 mg by [facility] - (MAG-OX) 15:20: mouth Medical 400 mg 59 daily. Center tablet metoclopram 2017-0 Yes 10mg Q.[id number] Take [address] [facility] gadiel HCl 7-20 [id number] by mouth 3 [facility] - (REGLAN) 10 [...] tab, PO, l Tablet 15:07: Daily, # [place] 00 30 tab, 0 Refill(s), Pharmacy: [facility] [id number] Bumex No 0.5 mg, Memoria 2-09 Route: PO, l 15:00: Drug form: [place] 00 TAB, Daily, Dosing Weight 92.273, kg, Start date: 07/30/16 9:00:00 SENIOR STATISTICIAN, Duration: 30 day, Stop date: 08/28/16 9:00:00 SENIOR STATISTICIAN Lasix 2016-0 No Notes: Memoria 2-08 (Same as: l 20:05: Lasix) [place] 00 May cause GI upset. Give with [...] Volume: 1,000, Start date: 07/26/16 12:26:00 SENIOR STATISTICIAN, Duration: 30 day, Stop date: 08/25/16 12:25:00 SENIOR STATISTICIAN Sodium 2016-0 No 500 mL, Memoria Chloride 2-05 500 ml/hr, l 0.154 13:30: Infuse Vin MEQ/ML 00 Over: 1 Injectable hr, Route: Solution IV, 500, Drug form: INJ, ONCE, Priority: STAT, Dosing Weight 92.273 kg, Start date: 07/26/16 7:30:00 SENIOR STATISTICIAN, Duration: 1 doses or times, Stop date: 07/26/16 7:30:00 SENIOR STATISTICIAN Insulin 2016- No 60 Memoria regular 2-04 units) l 08:39: WASTE: F/P [place] - Black; E - Municipal Trash Bin Stable for 28 days at room temperatur e Expires in days from ____Date Insulin, 2016-0 No Notes: Memoria Aspart, 2-04 Roll in l Human 07:31: palms of [place] 00 hands gently; Do not shake vigorously [...] 92.273, kg, Start date: 07/24/16 9:00:00 SENIOR STATISTICIAN, Duration: 30 day, Stop date: 08/22/16 9:00:00 SENIOR STATISTICIAN 24 HR No Notes: Memoria Divalproex 2-03 (Same as: l Sodium 500 15:00: Depakote Her braden MG Extended 00 ER) Release Tablet [Depakote] gabapentin No Notes: Memor ia 300 MG Oral 2-03 (Same as: l Capsule 15:00: Neurontin) Herm naeem Aspirin 81 No Notes: Memor ia MG Chewable 2-03 Take with l Tablet 15:00: food. Vin 00 Lasix No Notes: Memoria 2-03 (Same as: l 15:00: Lasix) [place] MEDICATION WASTE Product Size: 40 mg Product Wasted: ___ mg Zoloft No Notes: Memoria 2-03 (Same as: l 15:00: Zoloft) [place] Protonix No Notes: Memoria 2-03 Tablet l 15:00: should not be chewed or crushed. (Same as: Protonix) metoprolol No 100 mg, 2 Me moria extended 2-03 tab, l release 15:00: Route: PO, Herm naeem Drug form: ERTAB, Daily, Start date: 07/24/16 9:00:00 SENIOR STATISTICIAN, Duration: 30 day, Stop date: 08/22/16 9:00:00 SENIOR STATISTICIAN Insulin No Notes: Memoria Glargine 2-03 Same [...] janice 2-03 (Same as: l 14:50: Zofran) [place] MEDICATION WASTE Product Size: 4 mg Product Wasted: ___ mg Morphine No Notes: Memoria 2-03 (Same l 14:50: as:MORPhin Vin 00 e Sulfate) Insulin, No Notes: Memoria Aspart, 2-03 Roll in l Human 13:30: palms of [place] 00 hands gently; Do not shake vigorously . (Same as: NovoLOG) "single patient use only" WASTE: F/P - Black; E - Municipal Trash Bin Stable for 28 days at room temperatur e. Expires in days from ____Date Dilaudid No Notes: Memoria 2-03 Same as l 11:28: Dilaudid [place] 00 Insulin, No Notes: Memoria Aspart, 2-03 [...] 2- Route: IM, l 08:40: Drug form: [place] 00 PDR/INJ, PRN, Dosing Weight 92.273, kg, PRN Blood Glucose Results, Start date: 07/24/16 2:40:00 SENIOR STATISTICIAN, Duration: 30 day, Stop date: 08/23/16 2:39:00 SENIOR STATISTICIAN Dextrose No 25 gm, 50 Mendoza janice 50% Syringe 2-03 mL, Route: l 08:40: IVP, Drug Vin 00 Form: INJ, Dosing Weight 92.273, kg, PRN, PRN Blood Glucose Results, Start date: 07/24/16 2:40:00 SENIOR STATISTICIAN, Duration: 30 day, Stop date: 08/23/16 2:39:00 SENIOR STATISTICIAN Docusate No Notes: Memoria 2-03 (Same as: l 07:20: Colace) [place] (Do Not Crush) Ondansetron No Notes: Mendoza janice 2-03 (Same as: l 07:20: Zofran) [place] 00 MEDICATION WASTE Product Size: 4 mg [...] l / 04:09: Duoneb) Vin Ipratropium 00 [place] 0.167 MG/ML Inhalant Solution [DuoNeb] Furosemide 2015-06 [...] INHALATION l 0.09 16:34: , PRN, PRN [place] MG/ACTUAT 00 as needed Metered for Dose wheezing, Inhaler use as needed for shortness of breath or wheezing, # 8 gm, 0 Refill(s) Aspirin 81 2015-06 Yes 81 mg = 1 Me moria MG Chewable 2-26 tab, PO, l Tablet 16:34: Daily, # [place] 00 30 tab, 0 Refill(s) Hydroxyzine 2015-06 [...] Oxide 2-24 (Same as: l 13:36: Mag-Ox [place] 00 400) Magnesium oxide 184zm=482u g elemental magnesium Dose=____m g magnesium oxide (___mg elemental magnesium) Magnesium 2015-06 No Notes: Memori a Oxide 2-24 (Same as: l 09:47: Mag-Ox Vin 00 400) Magnesium oxide 269yv=681z g elemental magnesium Dose=____m g magnesium oxide [...] Memoria 2-24 (Same as: l 00:00: Norvasc) [place] 00 Insulin 2015-06 No Notes: Memoria Glargine [...] 86.364, kg, Start date: 06/11/16 9:00:00 SENIOR STATISTICIAN, Duration: 30 day, Stop date: 07/10/16 9:00:00 SENIOR STATISTICIAN Insulin 2015-06 No Notes: Memoria Glargine 2-22 Same as: l 100 UNT/ML 15:00: Lantus) Do H ermann Injectable 00 not hold Solution insulin [Lantus] without contacting prescriber WASTE: F/P - Black; E - Municipal Trash Bin Zoloft 2015-06 No Notes: Memoria 2-22 (Same as: l 15:00: Zoloft) Vin 00 Insulin, 2015-06 No Notes: Memoria Aspart, 2-22 Roll in l Human 12:55: palms of [place] 00 hands gently; Do not shake vigorously [...] 08-12 (Same as: l / 03:00: Duoneb) [place] Ipratropium 00 [place] 0.167 MG/ML Inhalant Solution [DuoNeb] gabapentin 2015-06 No 300 mg, Mendoza janice 300 MG Oral 08-12 Route: PO, l Capsule 03:00: Drug form: Herm naeem 00 CAP, Q12H, Dosing Weight 86.364, kg, (CrCl 30 - 59 ml/min), Start date: 06/10/16 21:00:00 SENIOR STATISTICIAN, Duration: 30 day, Stop date: 07/10/16 9:00:00 SENIOR STATISTICIAN divalproex 2015-06 No Notes: Memor ia sodium 2-22 (Same as: l 03:00: Depakote [place] 00 ER) Once daily dosing; indicated for migraines. Divalproe x sodium extended-r elease tab. Do not chew or crush. "Do Not Crush" Losartan 2015-06 No Notes: Memoria 2-22 (Same as: l 03:00: Cozaar) [place] 00 Insulin, 2015-06 No Notes: Memoria Aspart, [...] Glucose Results, Start date: 06/10/16 18:50:00 SENIOR STATISTICIAN, Duration: 30 day, Stop date: 07/10/16 18:49:00 SENIOR STATISTICIAN Glucagon 2015-06 No 1 mg, Memoria 2-22 Route: IM, l 00:50: Drug form: PDR/INJ, PRN, Dosing Weight 86.364, kg, PRN Blood Glucose Results, Start date: 06/10/16 18:50:00 SENIOR STATISTICIAN, Duration: 30 day, Stop date: 07/10/16 18:49:00 SENIOR STATISTICIAN Hydralazine 2015-06 No Notes: Mendoza janice 2-22 [...] Weight 86.364, kg, Start date: 06/10/16 18:06:00 SENIOR STATISTICIAN, Stop date: 06/10/16 18:06:00 SENIOR STATISTICIAN hydrOXYzine 2015-06 No Notes: Mendoza janice pamoate 2-21 (Same as: l 23:00: Vistaril) Furosemide 2015-06 No 60 mg, Memor ia 2-21 Route: l 22:32: IVP, Drug form: INJ, ONCE, Dosing Weight 86.364, kg, Start date: 06/10/16 16:32:00 SENIOR STATISTICIAN, Stop date: 06/10/16 16:32:00 SENIOR STATISTICIAN Lasix 2015-06 No Notes: Memoria 08-11 (Same as: l 17:22: Lasix) MEDICATION WASTE Product Size: 40 mg Product Wasted: _0__ mg Albuterol 2015-06 No Notes: Memori a 0.833 MG/ML 08-11 (Same as: l / 17:22: Duoneb) Ipratropium 00 [place] 0.167 MG/ML Inhalant Solution [DuoNeb] Promethazin Yes 25 mg = 1 M emoria e -06 supp, [place], l Hydrochlori 14:45: Q6H, Jake n de [...] Memori a pamoate - Refill(s) l 11:18: Vin Dicyclomine Yes 0 Memori a -06 Refill(s) l 11:18: Vin 00 Ondansetron Yes 0 Memori a 1-06 Refill(s) l 11:17: [place] Benztropine 2015-0 Yes 0 Memori a 1-06 [...] l 10:56: Ativan) Metoclopram No Notes: Mendoza jaince gadiel 06-26 (Same as: l 10:55: Reglan) [...] 03-14 Marx Rate: l 0.9% 22:19: 1,000 [place] (Bolus) IV 00 ml/hr, 500 mL Infuse [...] insulin No Blake 10 unit, Mem oria isophane-DEGREASING WHEEL OPERATOR 6-11 Deangelo 0.1 mL, l H 02:00: Route: Vin SUB-Q, Drug form: INJ, Bedtime, Start date: 11/29/11 21:00:00, Duration: 30 day, Stop date: 12/28/11 21:00:00 Insulin 2011-0 No Blake 8 unit, Mendoza janice regular 6-11 Deangelo 0.08 mL, l 02:00: Route: [place] SUB-Q, Drug form: SOLN, Bedtime, Start date: [...] 2011-0 No Blake 14 unit, Mem oria isophane-DEGREASING WHEEL OPERATOR 6-10 Deangelo 0.14 mL, l H 14:00: [...] Deangelo 0.1 mL, l 06:30: Brisa Route: [place] 00 SUB-Q, Drug form: SOLN, TID-Before Meals, [...] l IV 1,000 mL 06:29: Brisa ml/hr, [place] Infuse over: 5 hr, Route: IV, Dosing [...] mL, Route: l 02:31: Brown IVP, Drug [place] 00 form: INJ, ONCE, Priority: STAT, Start date: 11/28/11 21:31:00, Stop date: 11/28/11 21:31:00 NS (Bolus) No Arif Domenico 1,000 mL, Memoria IV 1,000 mL 11-27 Rate: l 22:48: 1,000 [place] 00 ml/hr, Infuse over: 1 hr, Route: [...] 6-09 mL, Route: l 20:35: IVP, Drug [place] 00 form: INJ, ONCE, Priority: STAT, Start date: 11/28/11 15:35:00, Stop date: 11/28/11 15:35:00 Novolin R Yes Hughes-Jason 8 unit, M emoria 100 3-30 Henefer SUB-Q, l units/mL 17:47: Eunice Q12H, 2 He rmann injectable 42 Pu vial, solution Substituti on Allowed, SOLN Novolin N Yes Hughes-Jason 10 unit, Memoria 100 3-30 Henefer SUB-Q, l units/mL 17:46: Eunice Bedtime, H ermann subcutaneou 27 Pu 10 ml, s injection Substituti on Allowed, SUSP Novolin N Yes Hughes-Jason 14 unit, Memoria 100 3-30 Henefer SUB-Q, l units/mL 17:44: Eunice QAM, 1 Her braden subcutaneou 37 Pu vial, s injection Substituti on Allowed, SUSP magnesium No Hughes-Jason 400 mg, 1 Memoria oxide 3-30 Henefer tab, l 14:55: Dawson Route: PO, Her braden 00 Pu Drug form: TAB, ONCE, Priority: STAT, Start date: 09/18/11 9:55:00, Stop date: 09/18/11 9:55:00 Insulin No Hughes-Jason 8 unit, Mem oria regular 3-30 Henefer 0.08 mL, l 14:22: Dawson Route: Vin 00 Pu SUB-Q, Drug form: SOLN, ONCE, Priority: STAT, Start date: 09/18/11 9:22:00, Stop date: 09/18/11 9:22:00 Lactated 2012-0 No Hughes-Jason 1,000 mL, Memoria Ringers 3-30 Henefer Rate: l (Bolus) IV 14:16: Dawson 1,000 He rmann 1,000 mL 00 Pu ml/hr, Infuse over: 1 hr, Route: IV, Total Volume: 1,000, Bolus Dose, Priority: STAT, Start date: 09/18/11 9:16:00, Duration: 1 doses or times, Stop date: 09/18/11 10:15:00 Sodium 2011-0 No Hughes-Jason 1,000 mL, Me moria Chloride 3-30 Henefer Rate: l 0.9% 14:06: Dawson 1,000 [place] (Bolus) IV 00 Pu ml/hr, 1000 mL Infuse over: 1 hr, Route: IV, kg, Total Volume: 1,000, Bolus Dose, Priority: STAT, Start date: 09/18/11 9:06:00, Duration: 1 doses or times, Stop date: 09/18/11 10:05:00 sulfamethox 2011-0 Yes Substituti Memoria azole 3-30 on Allowed l 14:04: Vin 58 Sodium 2011-0 No Hughes-Jason 1,000 mL, Me moria Chloride 3-30 Henefer Rate: l 0.9% 13:56: Dawson 1,000 [place] (Bolus) IV 00 Pu ml/hr, 1000 mL [...] 3-21 Amelia cap, PO, l capsule 18:47: [place] BID, 60 Her braden 19 cap, Substituti on Allowed, CAP clindamycin 2011- Yes Luna 300 mg, 2 Memoria 150 mg oral 3-21 Amelia cap, PO, l capsule 18:46: [place] Q8H, 30 Her braden 55 cap, Substituti on Allowed, CAP [place] Yes Luna 1 tab, PO, Memoria 10/325 oral -21 Amelia Q4H, PRN, l tablet 18:46: Zeeshan 30 tab, Herm naeem 36 Pain, Substituti on Allowed, Maintenanc e, TAB [place] No Hollie Donavan 1 tab, Mendoza janice [...] 3-19 Omidvar tab, l 15:30: Route: PO, [place] 00 Drug form: TAB, Daily, Start date: [...] moria 3-19 Josefina 0.1 mL, l 14:19: Chauncey Route: [place] 00 IVP, Drug form: INJ, Q2MIN, PRN [...] Memoria 09-06 Arias Route: l 13:31: IVPB, [place] 00 ONCE, Start date: 09/07/11 8:31:00, Stop [...] 3-17 Omidvar tab, l 14:11: Route: PO, [place] Drug form: ERTAB, ONCE, Start date: 09/05/11 [...] Duration: 30 day, Stop date: 10/04/11 18:10:00 [place] 2011-0 No Mahammad 1 tab, Memori a [...] 10cc/hr, l - site 1 14:50: Route: [place] 400 mL 00 NERVE BLOCK, Start date: 09/04/11 9:50:00 400 mL, Duration: 30 day, Stop date: 10/04/11 9:49:00 naloxone 2011-0 No Rosalino 0.04 mg, Me moria 3-16 Kavon 0.1 mL, l 14:50: Route: Vin 00 IVP, Drug form: INJ, Q2MIN, PRN Narcotic Reversal, Start date: 09/04/11 9:50:00, Duration: 30 day, Stop date: 10/04/11 9:49:00 [place] 2011-0 No [place] 1 tab, Memoria 10/325 [...] 3-15 Anabelle mL, Route: l 16:00: IVPB, [place] [id number], Start date: 09/03/11 11:00:00, Duration: 30 day, Stop date: 10/03/11 8:00:00 potassium 2011-0 No [place] 40 mEq, 2 M emoria chloride 3-15 Omidvar tab, l 13:39: Route: PO, Vin Drug form: ERTAB, ONCE, Start date: 09/03/11 8:39:00, Stop date: 09/03/11 8:39:00 [place] 5/325 2011-0 No Rosalino 1 tab, M emoria oral tablet 3-15 Kavon Route: PO, l 05:00: Drug Form: [place] 00 TAB, Q4H, Start date: 09/03/11 0:00:00, [...] Duration: 30 day, Stop date: 10/02/11 9:00:00 [place] 5/325 2011-0 No Rosalino 1 tab, M emoria oral tablet 3-14 Kavon Route: PO, l 16:25: Drug Form: [place] 00 TAB, Q4H, PRN Pain, Start date: [...] Route: l 14:00: IVPB, Drug form: INJ, [id number], Start date: 09/02/11 9:00:00, Duration: 30 day, Stop date: 10/01/11 21:00:00 clindamycin 2011-0 No Eber L 600 mg, 4 Memoria (SCIP) 3-14 Anabelle mL, Route: l 10:00: IVPB, [place] 00 [id number], Start date: 09/02/11 5:00:00, Duration: 3 doses or times, Stop date: 09/02/11 21:00:00 clindamycin 2011-0 No Yury 600 mg, 4 Memoria (SCIP) 3-14 Silverio mL, Route: l 04:00: [place] IVPB, [place] 00 [id number], Start date: 09/01/11 23:00:00, Duration: 3 doses or times, Stop date: 09/02/11 15:00:00 insulin No [place] 15 unit, Mendoza janice isophane-DEGREASING WHEEL OPERATOR 3-14 Omidvar 0.15 mL, l H 02:00: Route: [place] 00 SUB-Q, Drug form: INJ, Q12H, Start date: 09/01/11 21:00:00, Stop date: 10/01/11 9:00:00 labetalol No Mariaelena-Corea 5 mg, Me moria 3-14 Barbra Route: l 01:07: Feliciano IVP, [place] 00 Q5Min, PRN Elevated BP, Start date: [...] 3-14 Barbra Route: l 01:07: Feliciano IVP, [place] 00 Q2MIN, PRN Narcotic Reversal, Start date: [...] Route: l 01:00: IVPB, Drug form: INJ, [id number], Start date: 09/01/11 20:00:00, Duration: 30 day, [...] Route: l 00:00: IVPB, Drug form: INJ, [id number], Start date: 09/01/11 19:00:00, Duration: 30 day, [...] Movva mL, Route: l 23:23: IVP, Drug [place] Form: INJ, PRN, PRN Blood Glucose Results, Start date: 09/01/11 18:23:00, Duration: 30 day, Stop date: 10/01/11 18:22:00 morphine 2011-0 No Daja Shannan 2 mg, 1 M emoria Sulfate 3-13 Beni mL, Route: l 21:14: IVP, Drug [place] form: INJ, Q4H, PRN Severe Pain, Start date: 09/01/11 16:14:00, Stop date: 10/01/11 16:13:00 Lactated 2011-0 No Cesar 1,000 mL, Me moria Ringers IV 3-13 Manuel [place] Rate: 100 l 1,000 mL 19:03: ml/hr, [...] No Bee L 4 mg, Memoria 3-13 [place] Route: l 09:06: IVP, Drug [place] 00 form: INJ, ONCE, Priority: STAT, Start date: 09/01/11 4:06:00, Stop date: 09/01/11 4:06:00 morphine 2011-0 No Bee L 4 mg, Mem oria Sulfate 3-13 [place] Route: l 09:06: IVP, ONCE, [place] 00 Priority: STAT, Start date: 09/01/11 4:06:00, Stop date: 09/01/11 4:06:00 Sodium 2011-0 No Bee L 1,000 mL, M emoria Chloride - [place] Rate: l 0.9% 08:42: 1,000 [place] (Bolus) IV 00 ml/hr, 1000 mL Infuse [...] Akmal SUB-Q, l human 14:40: TID, 30 [place] recombinant 10 vial, 3, 100 3, units/mL Substituti injectable on solution Allowed, before breakfast lunch and dinner, [facility] lunch and dinner potassium No Velásquez Noam 20 mEq, Memoria chloride 3-04 Akmal 100 mL, l 14:00: Route: [place] 00 IVPB, Drug form: INJ, Q2H, Start [...] Akmal mL, Route: l 12:26: IVPB, Drug [place] 00 form: INJ, ONCE, Total dose = [...] 3-02 Akmal tab, l 15:00: Route: PO, [place] 00 Drug form: TAB, Daily, Start date: [...] mL, Route: l 17:15: Ahmed IVP, Drug [place] 00 form: INJ, Q8H, PRN Nausea, Start date: 08/20/11 11:15:00, Duration: 30 day, Stop date: 09/19/11 11:14:00 insulin 2011-0 No Yury 10 unit, Mem oria isophane-DEGREASING WHEEL OPERATOR 3- [place] Route: l H 16:00: Rivero [...] 2011-0 No Yury 10 unit, Mem oria isophane-DEGREASING WHEEL OPERATOR 3- [place] Route: l H 15:00: Rivero [...] Allowed insulin No 10 unit, Memori a isophane-DEGREASING WHEEL OPERATOR 3- SUB-Q, l H 09:26: BID, Vin [...] 2011-0 No Yury 18 unit, Mem oria isophane-DEGREASING WHEEL OPERATOR 3- [place] 0.18 mL, l H 08:58: [...] ondansetron No Hughes-Jason 4 mg, emoria 08-19 Henefer Route: l 07:42: Dawson IVP, Drug Herm naeem 00 Pu form: INJ, ONCE, Priority: STAT, Start date: 08/20/11 1:42:00, Stop date: 08/20/11 1:42:00 GI cocktail No Hughes-Jason 30 ml, Memoria 08-19 Henefer Route: PO, l 05:12: Eunice Drug Form: Her braden 00 Pu SUSP, ONCE, STAT, Start date: 08/19/11 23:12:00, Stop date: 08/19/11 23:12:00 ondansetron 0 No [facility] Henefer Route: PO, l 05:10: Dawson Drug form: Her braden 00 Pu TABDIS, ONCE, Priority: STAT, Start date: 08/19/11 23:10:00, Stop date: 08/19/11 23:10:00 Lactated 2011-0 No Hughes-Jason 1,000 mL, Memoria Ringers 3-01 Henefer Rate: l (Bolus) IV 05:10: Dawson 1,000 He rmann 1000 mL 00 Pu ml/hr, Infuse over: 1 hr, Route: IV, Total Volume: 1,000, Bolus Dose, Priority: STAT, Start date: 08/19/11 23:10:00, Duration: 1 doses or times, Stop date: 08/20/11 0:09:00 Insulin 2011- No Hughes-Jason 7 unit, Mem oria regular 08-19 Henefer 0.07 mL, l 04:15: Dawson Route: Vin [...] PO, l capsule, 23:22: Rivero Daily, 30 [place] extended 24 cap, release Substituti on Allowed [...] Wong Route: IV, l 21:57: Pooja ONCE, [place] 00 Start date: 08/19/11 15:57:00, Stop date: [...] 2020-02-20 Completed [facility]ine 00:00:00 [facility] Influenza Virus 2020-02-20 Completed [facility] Vaccine 00:00:00 [facility] TDAP (ADACEL) VACCINE 2019-07-25 Completed Uni versity of 00:00:00 [facility] Meningococcal B, OMV 2019-07-25 Completed Univ ersity of 00:00:00 [facility] Meningococcal 2019-07-25 Completed [facility] of Polysaccharide 00:00:00 [facility] (groups A, C, Y and Branc h W-135) conjugate vaccine (MCV4P) TDAP (ADACEL) VACCINE 2019-07-25 Completed Uni versity of 00:00:00 [facility] Meningococcal B, OMV 2019-07-25 Completed Univ ersity of 00:00:00 [facility] Meningococcal 2019-07-25 Completed [facility] Polysaccharide 00:00:00 [facility] (groups A, C, Y and [...] [facility] Influenza Virus 2017-06-22 Completed [facility] [...] 2020-06-27 16:33:00 171 mm[Hg] [facility] Diastolic blood 2020-06-27 16:33:00 98 mm[Hg] [facility] Heart rate 2020-06-27 16:33:00 71 /min [facility] Respiratory rate 2020-06-27 16:29:00 19 /min Univ [facility] Body height 2020-06-27 16:29:00 [facility] 2020-06-27 16:29:00 77[facility]293 [facility] BMI 2020-06-27 16:29:00 32.20 kg/m2 [facility] Oxygen saturation in 2020-06-27 16:29:00 99 /min University Arterial blood by [facility] Pulse oximetry Branch Height/Length 2021-07-08 11:50:13 154.9 cm Measured Weight Dosing 2021-07-08 11:50:13 85.00 kg Height/Length 2021-07-08 11:47:31 154.9 cm Measured Weight Dosing 2021-07-08 11:47:31 85.00 kg Height/Length 2021-07-08 11:47:20 154.9 cm Measured Weight Dosing 2021-07-08 11:47:20 85.00 kg Systolic blood 2021-07-08 19:43:00 189 mm[Hg] [facility] pressure Diastolic blood 2021-07-08 19:43:00 104 mm[Hg] [facility] pressure Heart rate 2021-07-08 18:56:00 74 /min [facility] Body temperature 2021-07-08 18:56:00 36.39 Cathleen [facility] Body height 2021-07-08 18:56:00 157.5 cm [facility] Body weight 2021-07-08 18:56:00 72.938 kg [facility] BMI 2021-07-08 18:56:00 29.41 kg/m2 [facility] Oxygen saturation in 2021-07-08 18:56:00 100 /min [facility] Arterial blood by Pulse oximetry Respiratory rate 2021-06-18 16:36:00 11 /min [facility] Systolic (mm Hg) 2021-01-29 20:03:00 [facility] [place] Diastolic (mm Hg) 2021-01-29 20:03:00 [facility] [place] Systolic (mm Hg) 2021-01-29 19:40:00 [facility] [place] Diastolic (mm Hg) 2021-01-29 19:40:00 [facility] [place] Systolic (mm Hg) 2021-01-29 18:05:00 [facility] [place] Diastolic (mm Hg) 2021-01-29 18:05:00 [facility] [place] Respitory Rate 2021-01-29 16:55:00 Memori al Vin Temperature Oral (F) 2021-01-29 16:45:00 97.3 F [facility] Respitory Rate 2021-01-29 16:45:00 [facility] [place] Respitory Rate 2021-01-29 16:30:00 [facility] [place] Temperature Oral (F) 2021-01-29 13:10:00 97.6 F [facility] Systolic (mm Hg) 2021-01-27 05:00:00 [facility] Vin Diastolic (mm Hg) 2021-01-27 05:00:00 Mem o[facility] Vin Systolic (mm Hg) 2021-01-27 04:00:00 [facility] [place] Diastolic (mm Hg) 2021-01-27 04:00:00 [facility] [place] Systolic (mm Hg) 2021-01-27 03:00:00 [facility]za rial Vin Diastolic (mm Hg) 2021-01-27 03:00:00 [facility] [place] Respitory Rate 2021-01-26 19:00:00 [facility] Vin Respitory Rate 2021-01-26 18:00:00 [facility] [place] Respitory Rate 2021-01-26 17:00:00 [facility] [place] Temperature Oral (F) 2021-01-22 13:00:00 97.6 F [facility] Height 2021-01-21 18:25:00 149.86 cm [facility] Weight 2021-01-21 18:25:00 [facility] BMI Calculated 2021-01-21 18:25:00 [facility] [place] Height 2021-01-21 17:09:00 157.48 cm [facility] Height 2021-01-21 13:09:00 157.48 cm [facility] Weight 2021-01-21 13:09:00 [facility] BMI Calculated 2021-01-21 13:09:00 [facility] Heart Rate 2021-01-21 12:50:00 [facility] Systolic (mm Hg) 2020-12-24 15:43:00 [facility]za rial Vin Diastolic (mm Hg) 2020-12-24 15:43:00 Mem o[facility] Vin Heart Rate 2020-12-24 15:43:00 [facility] [place] Height 2020-12-24 15:43:00 154.94 cm [facility] Weight 2020-12-24 15:43:00 [facility] BMI Calculated 2020-12-24 15:43:00 [facility] Systolic (mm Hg) 2016-07-30 14:00:00 [facility] [place] Diastolic (mm Hg) 2016-07-30 14:00:00 [facility] [place] [facility] Respitory Rate 2016-07-30 14:00:00 [facility] Heart Rate 2016-07-30 14:00:00 [facility] Temperature Oral (F) 2016-07-30 14:00:00 97.4 F [facility] Systolic (mm Hg) 2016-07-30 10:45:00 [facility]za rial Vin Diastolic (mm Hg) 2016-07-30 10:45:00 Mem o[facility] Vin Heart Rate 2016-07-30 10:45:00 [facility] Temperature Oral (F) 2016-07-30 10:45:00 97.2 F [facility] Respitory Rate 2016-07-30 10:45:00 [facility] [place] Heart Rate 2016-07-30 06:35:00 [facility] Temperature Oral (F) 2016-07-30 06:35:00 97.0 F [facility] Respitory Rate 2016-07-30 06:35:00 [facility] Systolic (mm Hg) 2016-07-30 06:35:00 M[facility]za rial Vin Diastolic (mm Hg) 2016-07-30 06:35:00 [facility] [place] [facility] Weight 2016-07-24 02:13:00 [facility] BMI Calculated 2016-07-24 02:13:00 [facility] [place] Height 2016-07-24 02:13:00 160.02 cm [facility] Respitory Rate 2016-06-15 15:00:00 [facility] [place] Systolic (mm Hg) 2016-06-15 15:00:00 [facility] [place] Diastolic (mm Hg) 2016-06-15 15:00:00 Mem o[facility] Vin Respitory Rate 2016-06-15 14:00:00 [facility] Vin Systolic (mm Hg) 2016-06-15 14:00:00 M[facility]za rial Vin Diastolic (mm Hg) 2016-06-15 14:00:00 Mem o[facility] Vin Respitory Rate 2016-06-15 13:29:00 [facility] Vin Systolic (mm Hg) 2016-06-15 13:29:00 M[facility]za rial Vin Diastolic (mm Hg) 2016-06-15 13:29:00 [facility] [place] Temperature Oral (F) 2016-06-14 10:56:00 97.1 F [facility] Temperature Oral (F) 2016-06-14 06:55:00 97.1 F [facility] Temperature Oral (F) 2016-06-12 10:00:00 96.8 F [facility] Weight 2016-06-11 04:25:00 [facility] Height 2016-06-11 04:25:00 160.02 cm [facility] BMI Calculated 2016-06-11 04:25:00 [facility] [place] Heart Rate 2016-06-11 02:04:00 [facility] Heart Rate 2016-06-11 00:00:00 [facility] Heart Rate 2016-06-10 20:30:00 [facility] Weight 2016-06-10 16:04:00 [facility] BMI Calculated 2016-06-10 16:04:00 [facility] Height 2016-06-10 16:04:00 160.02 cm [facility] Temperature Oral (F) 2014-06-26 15:12:00 98.0 F [facility] Systolic (mm Hg) 2014-06-26 15:12:00 [facility] [facility] Heart Rate 2014-06-26 15:12:00 [facility] Diastolic (mm Hg) 2014-06-26 15:12:00 [facility] Respitory Rate 2014-06-26 15:12:00 [facility] Systolic (mm Hg) 2014-06-26 13:53:00 [facility] [facility] Diastolic (mm Hg) 2014-06-26 13:53:00 Mem o[facility] Vin Respitory Rate 2014-06-26 13:53:00 [facility] [place] Temperature Oral (F) 2014-06-26 13:53:00 98.0 F [facility] Temperature Oral (F) 2014-06-26 12:37:00 98.2 F [facility] Respitory Rate 2014-06-26 12:37:00 [facility] [place] [facility] Systolic (mm Hg) 2014-06-26 12:37:00 [facility] Diastolic (mm Hg) 2014-06-26 12:37:00 [facility] Heart Rate 2014-06-26 09:21:00 [facility] Heart Rate 2014-06-26 06:08:00 [facility] Height 2014-06-26 05:35:00 154.94 cm [facility] Weight 2014-06-26 05:35:00 [facility] BMI Calculated 2014-06-26 05:35:00 [facility] Respitory Rate 2013-04-15 06:10:00 [facility] Vin Diastolic (mm Hg) 2013-04-15 06:10:00 [facility] Heart Rate 2013-04-15 06:10:00 [facility] Systolic (mm Hg) 2013-04-15 06:10:00 [facility]za rial Vin Temperature Oral (F) 2013-04-15 06:10:00 98.7 F [facility] Respitory Rate 2013-04-15 05:37:00 [facility] [place] [facility] Diastolic (mm Hg) 2013-04-15 05:37:00 Mem o[facility] Vin Systolic (mm Hg) 2013-04-15 05:37:00 [facility] Vin Temperature Oral (F) 2013-04-15 05:37:00 98.2 F [facility] Heart Rate 2013-04-15 05:37:00 [facility] Height 2013-04-15 02:06:00 160.02 cm [facility] Weight 2013-04-15 02:06:00 [facility] Temperature Oral (F) 2013-04-15 02:06:00 98.6 F [facility] Respitory Rate 2013-04-15 02:06:00 [facility] Heart Rate 2013-04-15 02:06:00 [facility] Diastolic (mm Hg) 2013-04-15 02:06:00 [facility] Systolic (mm Hg) 2013-04-15 02:06:00 [facility] Vin Weight 2012-03-14 21:33:00 [facility] Systolic (mm Hg) 2011-12-01 00:33:00 [facility] Respitory Rate 2011-12-01 00:33:00 [facility] Heart Rate 2011-12-01 00:33:00 [facility] Diastolic (mm Hg) 2011-12-01 00:33:00 Mem [facility] Vin Temperature Oral (F) 2011-12-01 00:33:00 99.6 F [facility] Diastolic (mm Hg) 2011-11-30 21:00:00 [facility] Heart Rate 2011-11-30 21:00:00 [facility] Respitory Rate 2011-11-30 21:00:00 [facility] Systolic (mm Hg) 2011-11-30 21:00:00 [facility] [facility] Temperature Oral (F) 2011-11-30 21:00:00 99.8 F [facility] Respitory Rate 2011-11-30 16:30:00 [facility] Systolic (mm Hg) 2011-11-30 16:30:00 [facility] Diastolic (mm Hg) 2011-11-30 16:30:00 [facility] Heart Rate 2011-11-30 16:30:00 [facility] Temperature Oral (F) 2011-11-30 16:30:00 99.8 F [facility] Weight 2011-11-29 11:40:00 [facility] Height 2011-11-29 11:40:00 157.48 cm [facility] Weight 2011-11-28 17:16:00 [facility] Weight 2011-09-18 13:30:00 [facility] Height 2011-09-18 13:30:00 154.94 cm [facility] Heart Rate 2011-09-09 13:31:00 [facility] Systolic (mm Hg) 2011-09-09 13:02:00 [facility] Vin Diastolic (mm Hg) 2011-09-09 13:02:00 Mem o[facility] Vin Respitory Rate 2011-09-09 13:02:00 [facility] [place] [facility] Temperature Oral (F) 2011-09-09 13:02:00 97.5 F [facility] Diastolic (mm Hg) 2011-09-09 08:00:00 [facility] Heart Rate 2011-09-09 08:00:00 [facility] Temperature Oral (F) 2011-09-09 08:00:00 98.6 F [facility] Respitory Rate 2011-09-09 08:00:00 [facility] Systolic (mm Hg) 2011-09-09 08:00:00 [facility] Vin Respitory Rate 2011-09-09 04:55:00 [facility] Diastolic (mm Hg) 2011-09-09 04:55:00 [facility] Systolic (mm Hg) 2011-09-09 04:55:00 [facility] Vin Heart Rate 2011-09-09 04:55:00 [facility] Temperature Oral (F) 2011-09-09 00:55:00 98.7 F [facility] Weight 2011-09-01 19:59:00 [facility] Height 2011-09-01 19:59:00 154.94 cm [facility] Height 2011-09-01 07:01:00 154.94 cm [facility] Weight 2011-09-01 07:01:00 [facility] Respitory Rate 2011-08-23 18:00:00 [facility] Heart Rate 2011-08-23 18:00:00 [facility] Systolic (mm Hg) 2011-08-23 18:00:00 [facility] rial Vin Diastolic (mm Hg) 2011-08-23 18:00:00 Mem o[facility] Vin Temperature Oral (F) 2011-08-23 18:00:00 97.7 F [facility] Heart Rate 2011-08-23 14:24:00 [facility] Temperature Oral (F) 2011-08-23 14:24:00 98.2 F [facility] Diastolic (mm Hg) 2011-08-23 14:24:00 [facility] Systolic (mm Hg) 2011-08-23 14:24:00 [facility] Vin Respitory Rate 2011-08-23 14:24:00 [facility] Systolic (mm Hg) 2011-08-23 11:15:00 [facility] Diastolic (mm Hg) 2011-08-23 11:15:00 Mem o[facility] Vin Temperature Oral (F) 2011-08-23 11:00:00 98.3 F [facility] Heart Rate 2011-08-23 11:00:00 [facility] Respitory Rate 2011-08-22 22:00:00 [facility] Height 2011-08-20 09:12:00 154.94 cm [facility] Weight 2011-08-20 09:12:00 [facility] Height 2011-08-19 20:28:00 154.94 cm [facility] Weight 2011-08-19 20:28:00 [facility] Procedures Procedure Date / Time Performing Clinician Source Performed POC GLUCOSE 2021-06-18 17:00:00 Aurelio Schumacher spital HEPATITIS B SURFACE 2021-06-18 14:07:[address] [facility] ANTIGEN VANCOMYCIN LEVEL, RANDOM 2021-06-18 13:44:00 [facility] HC COMPLETE BLD COUNT 2021-06-18 13:44:00 Endy [facility] W/AUTO DIFF BASIC METABOLIC PANEL 2021-06-18 11:27:00 [facility] ESTIMATED GFR 2021-06-18 11:27:00 Aurelio Schumacher Ho spital POC GLUCOSE 2021-06-18 08:07:00 Aurelio Schumacher [facility] HEMODIALYSIS 2021-06-18 06:16:53 Bill Cooper spital POC GLUCOSE 2021-06-18 01:26:00 Aurelio Schumacher [facility] POC GLUCOSE 2021-06-17 21:58:00 Aurelio Schumacher [facility] HEMODIALYSIS 2021-06-17 18:25:45 Bill Cooper spital POC GLUCOSE 2021-06-17 17:36:00 Aurelio Schumacher [facility] POC GLUCOSE 2021-06-17 13:51:00 Aurelio Schumacher Ho spital BASIC METABOLIC PANEL 2021-06-17 11:16:00 [facility] HC COMPLETE BLD COUNT 2021-06-17 11:16:00 [facility] W/AUTO DIFF ESTIMATED GFR 2021-06-17 11:16:00 [facility] POC GLUCOSE 2021-06-17 02:50:00 [facility] CONSULT TO OSTOMY CARE 2021-06-17 00:31:48 [facility] NURSE HC COMPLETE BLD COUNT 2021-06-16 23:31:00 [facility] W/AUTO DIFF BASIC METABOLIC PANEL 2021-06-16 23:31:00 Char Viramontes [facility] ESTIMATED GFR 2021-06-16 23:31:00 [facility] POC GLUCOSE 2021-06-16 23:19:00 [facility] OR [place] < 1 HOUR 2021-06-16 22:49:00 Mando Diaz [facility] ANAEROBIC CULTURE 2021-06-16 22:36:00 Kaci Diazlie [facility] FUNGUS CULTURE 2021-06-16 22:36:00 Mando Diaz [facility] AEROBIC CULTURE 2021-06-16 22:36:00 [facility] 2021-06-16 22:36:00 [facility] [place] AN ELECTIVE 2021-06-16 21:30:00 Jocelyne Zepeda [facility] SUPRAGLOTTIC AIRWAY AORTOGRAPHY, POSSIBLE 2021-06-16 21:17:00 Mando Diaz [facility] 2021-06-16 20:46:00 Veto [facility] POTASSIUM LEVEL 2021-06-16 17:28:00 Isabell Dickerson [facility] Larry Romero POC GLUCOSE 2021-06-16 11:39:00 [facility] ESTIMATED GFR 2021-06-16 10:08:00 [facility] BASIC METABOLIC PANEL 2021-06-16 10:08:00 Char Viramontes [facility] HC COMPLETE BLD COUNT 2021-06-16 10:08:00 [facility] W/AUTO DIFF PROTHROMBIN TIME WITH INR 2021-06-16 10:08:00 Char Viramontes [facility] PARTIAL THROMBOPLASTIN 2021-06-16 10:08:00 [facility] TIME (PTT) TYPE AND SCREEN 2021-06-16 10:08:00 [facility] POC GLUCOSE 2021-06-16 01:59:00 [facility] POC GLUCOSE 2021-06-15 22:58:00 [facility] COVID-19 QUALITATIVE 2021-06-15 19:29:00 Wander Raysajude [facility] RT-PCR POC GLUCOSE 2021-06-15 17:42:00 [facility] HEMODIALYSIS 2021-06-15 16:17:54 Delfino Akbar [facility] POC GLUCOSE 2021-06-15 15:41:00 [facility] POC GLUCOSE 2021-06-15 13:44:00 [facility] POC GLUCOSE 2021-06-15 13:00:00 [facility] ECG 12-LEAD 2021-06-15 12:48:21 Leni Barkertal HC COMPLETE BLD COUNT 2021-06-15 11:42:00 [facility] W/AUTO DIFF BASIC METABOLIC PANEL 2021-06-15 11:42:00 [facility] ESTIMATED GFR 2021-06-15 11:42:00 [facility] POC GLUCOSE 2021-06-15 01:31:00 [facility] US DUPLEX ARTERIAL LOWER 2021-06-14 21:55:33 [facility] EXTREMITY RIGHT POC GLUCOSE 2021-06-14 21:51:00 [facility] POC GLUCOSE 2021-06-14 17:36:00 [facility] POC GLUCOSE 2021-06-14 13:30:00 [facility] POC GLUCOSE 2021-06-14 13:29:00 [facility] HC COMPLETE BLD COUNT 2021-06-14 10:13:00 [facility] W/AUTO DIFF BASIC METABOLIC PANEL 2021-06-14 10:13:00 [facility] ESTIMATED GFR 2021-06-14 10:13:00 [facility] POC GLUCOSE 2021-06-14 02:45:00 [facility] POC GLUCOSE 2021-06-13 21:47:00 [facility] POC GLUCOSE 2021-06-13 20:46:00 [facility] CBC WITH PLATELET AND 2021-06-13 16:10:00 [facility] DIFFERENTIAL COMPREHENSIVE METABOLIC 2021-06-13 16:10:00 [facility] PANEL ESTIMATED GFR 2021-06-13 16:10:00 [facility] HEMODIALYSIS 2021-06-13 15:26:35 [facility] POC GLUCOSE 2021-06-13 14:30:00 [facility] VANCOMYCIN LEVEL, RANDOM 2021-06-13 10:59:00 Juwan Krueger [facility] POC GLUCOSE 2021-06-13 10:40:00 [facility] POC GLUCOSE 2021-06-13 02:28:00 [facility] POC GLUCOSE 2021-06-13 00:16:00 [facility] POC GLUCOSE 2021-06-12 23:31:00 [facility] POC GLUCOSE 2021-06-12 23:14:00 [facility] POC GLUCOSE 2021-06-12 18:19:00 [facility] POC GLUCOSE 2021-06-12 14:37:00 [facility] POC GLUCOSE 2021-06-12 14:01:00 [facility] POC GLUCOSE 2021-06-12 03:03:00 [facility] 2021-06-12 00:53:00 [facility] 2021-06-11 18:08:00 [facility] POC GLUCOSE 2021-06-11 13:39:00 Nagel, Holden [facility] [place] HEMODIALYSIS 2021-06-11 12:38:38 Naomie Dickelmo [facility] POC GLUCOSE 2021-06-11 02:01:00 Nagel, Holden [facility] POC GLUCOSE 2021-06-10 22:15:00 Nagel, Holden [facility] [place] POC GLUCOSE 2021-06-10 17:39:00 Nagel, Holden [facility] [place] POC GLUCOSE 2021-06-10 16:05:00 Nagel, Holdentrip Whyte spital [place] TISSUE CULTURE 2021-06-10 15:08:00 Pati, Juwan Whyte spital GRAM STAIN 2021-06-10 15:08:00 Pati, Juwancaron Whyte spital ANAEROBIC CULTURE 2021-06-10 15:04:00 Pati [facility] FUNGUS CULTURE 2021-06-10 15:04:00 Pati, Juwan Whyte spital AEROBIC CULTURE 2021-06-10 15:04:00 Pati, Juwan Whyte spital AFB CULTURE 2021-06-10 15:04:00 Pati, Juwan Whyte spital GRAM STAIN 2021-06-10 15:04:00 Pati, Juwan Whyte spital AFB STAIN 2021-06-10 15:04:00 Pati, Juwan Whyte spital [place] AN ELECTIVE 2021-06-10 14:26:00 Sofi Roach spital SUPRAGLOTTIC AIRWAY Marquita INCISION AND DRAINAGE, 2021-06-10 14:26:00 Pati, [facility] LOWER EXTREMITY HC COMPLETE BLD COUNT 2021-06-10 10:20:00 , [facility] W/AUTO DIFF BASIC METABOLIC PANEL 2021-06-10 10:20:00 [facility] PROTHROMBIN TIME WITH INR 2021-06-10 10:20:00 [facility] PARTIAL THROMBOPLASTIN 2021-06-10 10:20:00 [facility] TIME (PTT) TYPE AND SCREEN 2021-06-10 10:20:00 Robe, Holden Whyte [facility] sp[facility] [place] ESTIMATED GFR 2021-06-10 10:20:00 Juwan Krueger Ho spital POC GLUCOSE 2021-06-10 03:11:00 Nagel, Holden Whyte [facility] sp[facility] [place] POC GLUCOSE 2021-06-10 01:30:00 Nagel, Holden Ferrara spital [place] POC GLUCOSE 2021-06-09 22:22:00 Nagel, Holden Whyte [facility] [place] POC GLUCOSE 2021-06-09 13:55:00 Nagel, Holden Whyte [facility] sp[facility] [place] HEMODIALYSIS 2021-06-09 13:20:01 [facility] VANCOMYCIN LEVEL, RANDOM 2021-06-09 11:46:00 [facility] POC GLUCOSE 2021-06-09 02:06:00 Robe, Holden Ferrara spital [place] POC GLUCOSE 2021-06-08 22:23:00 Nagel, Holden Whyte Ho sp[facility] [place] POC GLUCOSE 2021-06-08 17:53:00 Nagel, Holden Ferrara spital [place] HC COMPLETE BLD COUNT 2021-06-08 16:06:00 [facility] W/AUTO DIFF POC GLUCOSE 2021-06-08 13:56:00 Holden Nagel spital [place] URINE CULTURE 2021-06-08 03:56:00 Holden Nagel spital [place] URINALYSIS SCREEN AND 2021-06-08 03:32:00 [facility] MICROSCOPY, WITH REFLEX TO CULTURE POC GLUCOSE 2021-06-08 01:15:00 Robe, Holden Ferrara spital [place] POC GLUCOSE 2021-06-07 22:07:00 Nagel, Holden Ferrara spital [place] POC GLUCOSE 2021-06-07 18:01:00 Holden Nagel Ho sp[facility] [place] BASIC METABOLIC PANEL 2021-06-07 14:15:00 [facility] ESTIMATED GFR 2021-06-07 14:15:00 Nagel Holden Whyte Ho spital [place] POC GLUCOSE 2021-06-07 13:56:00 Nagel, Holden [facility] [place] POC GLUCOSE 2021-06-07 02:54:00 Nagel, Holden Whyte Ho spital [place] CT LOWER EXTREMITY W 2021-06-07 01:22:59 [facility] CONTRAST RIGHT POC GLUCOSE 2021-06-06 23:50:00 NagelHolden rodriguez Ho spital [place] POC GLUCOSE 2021-06-06 17:31:00 Nagel, Holden Whyte Ho sp[facility] [place] HEMODIALYSIS 2021-06-06 15:05:52 [facility] POC GLUCOSE 2021-06-06 14:03:00 Holden Nagel Ho sp[facility] [place] HC COMPLETE BLD COUNT 2021-06-06 10:31:00 [facility] W/AUTO DIFF BASIC METABOLIC PANEL 2021-06-06 10:31:00 [facility] ESTIMATED GFR 2021-06-06 10:31:00 Holden Nagel Ho sp[facility] [place] POC GLUCOSE 2021-06-06 10:14:00 Holden Nagel Ho sp[facility] [place] POC GLUCOSE 2021-06-06 06:26:00 Holden Nagel Ho sp[facility] [place] POC GLUCOSE 2021-06-06 02:41:00 Holden Nagel Ho [facility] [place] POC GLUCOSE 2021-06-05 19:51:00 NagelHolden rodriguez Ho spital [place] BASIC METABOLIC PANEL 2021-06-05 18:06:00 [facility] HC COMPLETE BLD COUNT 2021-06-05 18:06:00 [facility] W/AUTO DIFF ESTIMATED GFR 2021-06-05 18:06:00 Holden Nagel Ho [facility] [place] POC GLUCOSE 2021-06-05 17:48:00 Holden Nagel Ho sp[facility] [place] ANAEROBIC CULTURE 2021-06-05 17:10:00 Pati, [facility] ANAEROBIC CULTURE 2021-06-05 16:59:00 Pati, [facility] FUNGUS CULTURE 2021-06-05 16:59:00 Pati, [facility] spital AEROBIC CULTURE 2021-06-05 16:59:00 Pati, [facility] spital AFB CULTURE 2021-06-05 16:59:00 Pati, [facility] spital FUNGUS SMEAR 2021-06-05 16:59:00 Pati, [facility] spital AFB STAIN 2021-06-05 16:59:00 Pati, [facility] spital [place] AN ELECTIVE 2021-06-05 16:52:08 Herrera [facility] SUPRAGLOTTIC AIRWAY TISSUE CULTURE 2021-06-05 16:50:00 [facility] 2021-06-05 16:50:00 [facility] DEBRID[facility], LOWER 2021-06-05 16:16:00 Pati [facility] EXTREMITY POC GLUCOSE 2021-06-05 13:32:00 [facility] TROPONIN T 2021-06-05 10:58:00 [facility] ospital ABO AND RH CONFIRMATION 2021-06-05 10:54:00 [facility]IC METABOLIC PANEL 2021-06-05 10:53:00 [facility] HC COMPLETE BLD COUNT 2021-06-05 10:53:00 [facility] W/AUTO DIFF ESTIMATED GFR 2021-06-05 10:53:00 Sivan Stewart [facility] PROTHROMBIN TIME WITH INR 2021-06-05 10:52:00 [facility] PARTIAL THROMBOPLASTIN 2021-06-05 10:52:00 [facility] TIME (PTT) HCG QUALITATIVE, SERUM 2021-06-05 10:52:00 Myron Fernandes [facility] SCREEN POC GLUCOSE 2021-06-05 09:40:00 Dhaliwal, Carlos [facility] [place] BLOOD CULTURE, AEROBIC & 2021-06-05 08:27:00 Carlos Dhaliwal [facility] ANAEROBIC Vipin POC GLUCOSE 2021-06-05 07:42:00 Carlos Dhaliwal Ho spital [place] POC GLUCOSE 2021-06-05 06:57:00 Carlos Dhaliwal Ho spital [place] POC GLUCOSE 2021-06-05 06:10:00 NagelHolden Ho spital [place] BLOOD CULTURE, AEROBIC & 2021-06-05 04:31:00 Carlos Dhaliwal [facility] ANAEROBIC Vipin POC GLUCOSE 2021-06-05 04:04:00 Carlos Dhaliwal Ho spital [place] POC GLUCOSE 2021-06-05 03:51:00 Carlos Dhaliwal [facility] [place] TYPE AND SCREEN 2021-06-05 03:40:00 Carlos Dhaliwal Ho spital [place] POC GLUCOSE 2021-06-05 03:05:00 Carlos Dhaliwal Ho sp[facility] [place] POC GLUCOSE 2021-06-05 02:23:00 Carlos Dhaliwal Ho spital [place] COVID-19 QUALITATIVE 2021-06-05 02:08:00 [facility] COMPLETE BLD COUNT 2021-06-05 01:24:00 SamantaSivan [facility] W/AUTO DIFF PROTHROMBIN TIME WITH INR 2021-06-05 01:24:00 [facility] PARTIAL THROMBOPLASTIN 2021-06-05 01:24:00 hollySivan [facility] TIME (PTT) COMPREHENSIVE METABOLIC 2021-06-05 01:24:00 hollySivan [facility] PANEL CREATINE KINASE, TOTAL 2021-06-05 01:24[facility]00 [facility] NATRIURETIC PEPTIDE 2021-06-05 01:24:00 SamantaSivan [facility] TROPONIN T 2021-06-05 01:24:00 Char Viramontes [facility] ospital ESTIMATED GFR 2021-06-05 01:24:00 Sivan Stewart [facility] ECG ED PRELIMINARY 2021-06-05 00:31:28 Sivan Stewart [facility] INTERPRETATION ECG 12-LEAD 2021-06-05 00:19:17 Carlos Dhaliwal Ho marilyn [facility] POC GLUCOSE 2021-05-25 18:04:00 Awe, Marilu Arvin [facility] POC GLUCOSE 2021-05-25 14:00:00 Awe, Marilu Arvin [facility] CBC HEMOGRAM 2021-05-25 10:12:00 Awe, Marilu Arvin [facility] BASIC METABOLIC PANEL 2021-05-25 10:12:00 Awe, [facility] ESTIMATED GFR 2021-05-25 10:12:00 Awe, Marilu Arvin [facility] POC GLUCOSE 2021-05-25 02:49:00 Awe, Marilu Arvin [facility] POC GLUCOSE 2021-05-24 23:33:00 Awe, Marilu Arvin [facility] POC GLUCOSE 2021-05-24 17:56:00 Awe, Marilu Arvin [facility] POC GLUCOSE 2021-05-24 13:59:00 Awe, Marilu Arvin [facility] CBC HEMOGRAM 2021-05-24 10:12:00 Awe, Marilu Arvin [facility] BASIC METABOLIC PANEL 2021-05-24 10:12:00 [facility] 2021-05-24 10:12:00 Awe, Marilu Arvin [facility] POC GLUCOSE 2021-05-24 09:59:00 Awe, Marilu Arvin [facility] POC GLUCOSE 2021-05-24 02:26:00 Awe, [facility] 2021-05-24 00:03:00 Awe, [facility] TRANSFUSE RED BLOOD CELLS 2021-05-23 22:30:00 [facility] TRANSFUSE RED BLOOD CELLS 2021-05-23 21:30:00 [facility] POC GLUCOSE 2021-05-23 19:03:00 Awe, [facility] TYPE AND SCREEN 2021-05-23 14:38:00 [facility] HC COMPLETE BLD COUNT 2021-05-23 14:38:00 [facility] W/AUTO DIFF PREPARE RBC 2021-05-23 14:38:00 [facility] ospital PREPARE PLATELET PHERESIS 2021-05-23 14:38:00 [facility] POC GLUCOSE 2021-05-23 14:35:00 Awe, [facility] HEMODIALYSIS 2021-05-23 13:42:30 [facility] CBC HEMOGRAM 2021-05-23 12:31:00 Awe, [facility] BASIC METABOLIC PANEL 2021-05-23 12:31:00 Awe, [facility] ESTIMATED GFR 2021-05-23 12:31:00 Awe, [facility] POC GLUCOSE 2021-05-23 11:22:00 Awe, [facility] POC GLUCOSE 2021-05-23 03:30:00 [facility] 2021-05-22 23:20:00 Awe, [facility] POC GLUCOSE 2021-05-22 17:20:00 Awe, [facility] POC GLUCOSE 2021-05-22 13:27:00 Awe, [facility] BASIC METABOLIC PANEL 2021-05-22 12:31:00 Nikki Haynes [facility] Rahel MAGNESIUM LEVEL 2021-05-22 12:31:00 Nikki Haynes osgio Mcginnis CBC HEMOGRAM 2021-05-22 12:31:00 Nikki Haynes ospital Rahel ESTIMATED GFR 2021-05-22 12:31:00 Nikki Haynes ospital [place] POC GLUCOSE 2021-05-22 10:54:00 Awe, [facility] POC GLUCOSE 2021-05-22 07:28:00 Awe, [facility] POC GLUCOSE 2021-05-22 01:11:00 Awe, [facility] HEPATITIS B SURFACE 2021-05-21 21:08:00 [facility] ANTIBODY HEMODIALYSIS 2021-05-21 20:57:40 [facility] POC GLUCOSE 2021-05-21 17:57:00 Awe, [facility] POC GLUCOSE 2021-05-21 13:55:00 Awe, [facility] POC GLUCOSE 2021-05-21 10:41:00 Kye Barber COVID-19 ANTI-SPIKE IGG 2021-05-21 07:43:00 Ishan [facility] ANTIBODY TITER Esa BASIC METABOLIC PANEL 2021-05-21 07:43:00 [facility] MAGNESIUM LEVEL 2021-05-21 07:43:00 Nikki Haynes ospigabe Mcginnis CBC HEMOGRAM 2021-05-21 07:43:00 Nikki Haynes ospigabe Mcginnis COVID-19 SEROLOGY PATIENT 2021-05-21 07:43:00 Clyde Olmstead [facility] SURVEILLANCE Esa ESTIMATED GFR 2021-05-21 07:43:00 Andre Sofia [place] LACTIC ACID LEVEL 2021-05-21 07:43:00 Leodan Stevenson [facility] POC GLUCOSE 2021-05-21 06:35:00 Kye Barber HC COMPLETE BLD COUNT 2021-05-21 02:49:[address] [facility] W/AUTO DIFF BASIC METABOLIC PANEL 2021-05-21 02:49:[address] [facility] LACTIC ACID LEVEL 2021-05-21 02:49:00 [facility] OSMOLALITY, SERUM 2021-05-21 02:49:00 [facility] BETA HYDROXYBUTYRATE 2021-05-21 02:49:00 [facility] PROCALCITONIN 2021-05-21 02:49:00 [facility] ESTIMATED GFR 2021-05-21 02:49:00 [facility] POC GLUCOSE 2021-05-21 02:34:00 Kye Barber spital HC COMPLETE BLD COUNT 2021-05-21 00:28:00 Char Viramontes [facility] W/AUTO DIFF POC GLUCOSE 2021-05-20 23:57:00 Kye Barber spital BASIC METABOLIC PANEL 2021-05-20 23:20:00 Andre Sofia [facility] [place] LACTIC ACID LEVEL 2021-05-20 23:20:00 Kimberlyn [facility] [place] ESTIMATED GFR 2021-05-20 23:20:00 Andre Sofia spital [place] VENOUS BLOOD GAS 2021-05-20 23:19:00 Andre Sofia ospital [place] POC GLUCOSE 2021-05-20 23:16:00 Kye Barber Ho spital POC GLUCOSE 2021-05-20 22:16:00 Kye Barber Ho spital POC GLUCOSE 2021-05-20 21:37:00 Kye Barber Ho spital POC GLUCOSE 2021-05-20 20:29:00 Kye Barber Ho spital POC GLUCOSE 2021-05-20 20:26:00 yKe Barber spital POC GLUCOSE 2021-05-20 17:49:00 Kye Barber Ho spital POC GLUCOSE 2021-05-20 17:46:00 Kye Barber spital TRANSFUSE RED BLOOD CELLS 2021-05-20 17:21:00 [facility] [place] TRANSFUSE PLATELET 2021-05-20 15:52:00 [facility] PHERESIS BASIC METABOLIC PANEL 2021-05-20 15:25:00 [facility] [place] ESTIMATED GFR 2021-05-20 15:25:00 Andre Sofia spital [place] POC GLUCOSE 2021-05-20 14:48:00 Kye Barber spital HEMODIALYSIS 2021-05-20 11:31:20 [facility] POC GLUCOSE 2021-05-20 10:44:00 Kye Barber spital HEPATITIS B SURFACE 2021-05-20 08:49:00 [facility] ANTIGEN HEPATITIS B SURFACE AB, 2021-05-20 08:49:00 [facility] QUANTITATIVE HC COMPLETE BLD COUNT 2021-05-20 08:25:00 [facility] W/AUTO DIFF BASIC METABOLIC PANEL 2021-05-20 08:25:00 [facility] MAGNESIUM LEVEL 2021-05-20 08:25:00 [facility] ospital PHOSPHORUS LEVEL 2021-05-20 08:25:00 [facility] PROTHROMBIN TIME WITH INR 2021-05-20 08:25:00 Leodan Stevenson [facility] ESTIMATED GFR 2021-05-20 08:25:00 Juwan Krueger spital HEMOGLOBIN A1C 2021-05-20 08:25:00 Nikki Haynes H ospital [place] POC GLUCOSE 2021-05-20 06:34:00 Kye Barber spital ARTERIAL BLOOD GAS 2021-05-20 04:36:00 [facility] 2021-05-20 03:42:28 Graham [facility] spital PROTHROMBIN TIME WITH INR 2021-05-20 02:54:00 [facility] HC COMPLETE BLD COUNT 2021-05-20 02:54[facility] BASIC METABOLIC PANEL 2021-05-20 02:54:00 [facility] LACTIC ACID LEVEL 2021-05-20 02:54:00 Graham [facility] VENOUS BLOOD GAS 2021-05-20 02:54:00 Graham [facility]ism Claudia ospital ESTIMATED GFR 2021-05-20 02:54:00 Graham [facility] Ho spital POC GLUCOSE 2021-05-20 02:54:00 Kye Barber spital XR CHEST 1 VW PORTABLE 2021-05-20 02:51:13 [facility] [place] [facility] 2021-05-20 01:30:15 Juwan Krueger spital TRANSFUSE RED BLOOD CELLS 2021-05-20 00:59:00 Juwan Krueger [facility] [place] AN ELECTIVE 2021-05-20 00:53:01 Sukhjinder Medina spital SUPRAGLOTTIC AIRWAY Kendall INCISION AND DRAINAGE, 2021-05-20 00:45:00 Juwan Krueger [facility] HEMATOMA HC COMPLETE BLD COUNT 2021-05-19 22:13:00 [facility] W/AUTO DIFF BASIC METABOLIC PANEL 2021-05-19 22:13:00 [facility] PROTHROMBIN TIME WITH INR 2021-05-19 22:13:00 [facility] PARTIAL THROMBOPLASTIN 2021-05-19 22:13:00 [facility] TIME (PTT) MAGNESIUM LEVEL 2021-05-19 22:13:00 [facility] ospital ESTIMATED GFR 2021-05-19 22:13:00 Juwan Krueger spital POC GLUCOSE 2021-05-19 22:00:00 Errol Luther [facility] SURGICAL PATHOLOGY REQUEST 2021-05-19 21:47:[address] [facility] POC GLUCOSE 2021-05-19 21:17:00 Juwan Krueger spital ACTIVATED CLOTTING TIME 2021-05-19 19:12:00 Kye Barber [facility] [place] AN ELECTIVE 2021-05-19 18:11:04 Sukhjinder Medina spital SUPRAGLOTTIC AIRWAY [place] LOWER EXTREMITY 2021-05-19 17:59:00 Juwan Krueger spital ANGIOGRAM,POSSIBLE ANGIOPLASTY,POSSIBLE STENT XR CHEST 1 VW PORTABLE 2021-05-19 15:47:37 Juwan Krueger [facility] ESTIMATED GFR 2021-05-19 14:34:00 Juwan Krueger spital POC PANEL 2021-05-19 14:34:00 Juwan Krueger spital TYPE AND SCREEN 2021-05-19 14:05:00 Isabell Dickerson marilyn Romero PREPARE RBC 2021-05-19 14:05:00 [facility] PREPARE FRESH FROZEN 2021-05-19 14:05:00 [facility] PLASMA PREPARE PLATELET PHERESIS 2021-05-19 14:05:00 Char Viramontes [facility] BASIC METABOLIC PANEL 2021-05-19 14:00:00 [facility] Larry Romero PROTHROMBIN TIME WITH INR 2021-05-19 14:00:00 Jayla [facility] Larry Romero HC COMPLETE BLD COUNT 2021-05-19 14:00:00 [facility] W/AUTO DIFF Larry Romero ABO AND RH CONFIRMATION 2021-05-19 14:00:00 Pati [facility] ESTIMATED GFR 2021-05-19 14:00:00 Isabell Dickerson COVID-19 QUALITATIVE 2021-05-19 12:40:00 Juwan Krueger [facility] RT-PCR MEDICAL RELEASE/CLEARANCE 2021-05-13 06:01:00 Doctor Unassigned, [facility] FORMS [facility] US DUPLEX ARTERIAL LOWER 2021-05-12 15:21:31 Juwan Krueger [facility] EXTREMITY BILATERAL Emergency department visit 2013-04-15 05:00:00 M [facility] [place] for the evaluation and management of a patient, which requires these 3 kamara components within the constraints imposed by the urgency of the patient's clinical condition and/or mental status: A comprehensive history; A comprehensi Injection or Infusion of 2013-04-15 05:00:00 Mem orial [place] Other Therapeutic or Prophylactic Substance Intravenous infusion, 2013-04-15 05:00:00 Memori al [place] hydration; each additional hour (List separately in [...] push, single or initial substance/drug [facility] (esophagogastroduodenoscop y) gastric outlet reduction section Shahid Joseph n Tubal ligation [facility] 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 Plan of Care Planned Activity Planned Date Details Comments Source Future Scheduled 2021-07-22 COVID-19 VACCINE [facility] Test 13:11:04 (1) [code = COVID-19 VACCINE (1)] Future Scheduled 2021-07-22 Hepatitis C [facility] Test 13:11:04 screening (procedure) [code = 652770746] Future Scheduled 2021-07-22 [facility] for [facility] Test 13:11:04 malignant neoplasm of cervix (procedure) [code = 892518151] Future Scheduled 2021-07-22 [facility]ZA [facility]ACCINE [facility] 13:11:04 [code = INFLUENZA VACCINE] Encounters Start End Encounter Admission Attending Care Care Encounter Source Date/Time Date/Time Type Type Clinicians Facility Department ID 2021-07-22 Outpatient nullFlavo [facility] [id number] Memoria 00:10:30 r Medical 05 l [facility] 2021-07-22 Preadmit nullFlavo [id number] Memoria 00:10:30 r [facility] 68 l [place] 2021-07-22 Outpatient nullFlavo [facility] [id number] Memoria 00:10:30 r Medical 06 l [facility] 2021-07-08 2021-07-08 Office Ann, 1.2.840.1 [id number] Methodi 12:54:05 14:25:36 Visit Bessie 94094.1.[address] [place] 3.430.2.7 Hosp jo-ann .3.151461 l .8 2021-07-08 2021-07-08 Telephone Anthony, 1.2.840.1 [id number] Methodi 00:00:00 00:00:[address] 3.430.2.7 Hospit a .3.534934 l .8 2021-07-08 2021-07-08 Travel 1.2.840.1 1.2.984.277 5731 [id number] Methodi 00:00:00 00:00:[address] 3.430.2.7 0.2.7.3.698 Ho spita .3.893105 084.8 l .8 2021-07-03 2021-07-03 Telephone Seth, 1.2.840.1 [id number] [id number] Methodi 00:00:00 00:00:[address] [place] 3.430.2.7 Hosp jo-ann .3.673471 l .8 2021-06-24 2021-06-24 Outpatient Deshazo_T DMG [facility] [id number] -[id number] Devoted 05:31:00 05:31:00 0104 Medica l Group 2021-06-23 2021-06-23 Telephone Anthony, 1.2.840.1 [id number] 2099 [id number] Methodi 00:00:00 00:00:[address] 3.430.2.7 Hospit a .3.425608 l .8 2021-06-04 2021-06-18 [facility] Sivan Stewart 1.2.840.1 [id number] Methodi 18:20:00 18:13:00 Encounter Carlos Dhaliwal 79768.1.[address] Nag[place], Holden Ortizra 3.430.2.7 Hospita Shanda Mckenzie .3.880065 l Aurelio Schumacher .8 2021-06-16 2021-06-16 Anesthesia Yousif, 1.2.840.1 [id number] Methodi 23:59:59 23:59:59 Event Alesia Coelho 12309.1.[address] 3.430.2.7 Hospit a .3.262072 l .8 2021-06-16 2021-06-16 Surgery Diaz, 1.2.840.1 [id number] Methodi 13:30:00 17:45:[address] [facility] 3.430.2.7 Hosp jo-ann .3.410900 l .8 2021-06-16 2021-06-16 Anesthesia Jose Carlos, 1.2.840.1 [id number] Methodi 15:19:00 17:19:00 Event Sethlachelleayo 41872.1.1 309 s t V. 3.430.2.7 Hospit a .3.508245 l .8 2021-06-10 2021-06-10 Surgery Juwan Krueger 1.2.840.1 [id number] Methodi 08:00:00 10:30:[address] 3.430.2.7 Hospit a .3.044260 l .8 2021-06-10 2021-06-10 Anesthesia Doc, 1.2.840.1 [id number] Methodi 08:26:00 09:40:00 Event Sofi 99220.1.[address] Marquita 3.430.2.7 Hosp jo-ann .3.136588 l .8 2021-06-09 2021-06-09 Prep for Robert, 1.2.840.1 [id number] [id number] Methodi 00:00:00 00:00:00 Surgery Gayle 19082.1.[address] 3.430.2.7 Hospit a .3.723856 l .8 2021-06-09 2021-06-09 Prep for Robert, 1.2.840.1 [id number] Methodi 00:00:00 00:00:00 Surgery Gayle 67608.1.[address] 3.430.2.7 Hospit a .3.111787 l .8 2021-06-05 2021-06-05 Anesthesia Frankie Chowdhury 1.2.840.1 [id number] Methodi 10:16:00 11:41:00 Event Chandler Silverman 33222.1.[address] 3.430.2.7 Hospit a .3.531963 l .8 2021-06-05 2021-06-05 Surgery Juwan Krueger 1.2.840.1 [id number] Methodi 09:30:00 11:05:[address] 3.430.2.7 Hospit a .3.182862 l .8 2021-06-03 2021-06-03 Prep for Anthony, 1.2.840.1 [id number] 57509 Methodi 00:00:00 00:00:00 Surgery Forrest 48122.1.[address] 3.430.2.7 Hospit a .3.430699 l .8 2021-06-03 2021-06-03 Telephone Adelita, 1.2.840.1 [id number] Methodi 00:00:00 00:00:00 Crysandria 08631.1.1 218 s t 3.430.2.7 Hospit a .3.322468 l .8 2021-05-28 2021-05-28 Outpatient Adams_R DM DMG [id number] 021 Dev[facility] 05:00:00 05:00:00 1208 Medica l Group 2021-05-27 2021-05-27 Patient Tam, 1.2.840.1 [id number] Methodi 00:00:00 00:00:00 Outreach Maria M 12897.1.[address] 3.430.2.7 Hospit a .3.294813 l .8 2021-05-27 2021-05-27 Travel 1.2.840.1 1.2.046.387 5299 [id number] Methodi 00:00:00 00:00:[address] 3.430.2.7 0.2.7.3.698 Ho rajeshta .3.576367 084.8 l .8 2021-05-27 2021-05-27 Orders Ramana, 1.2.840.1 [id number] 2100 [id number] Methodi 00:00:00 00:00:00 Only Anila 38681.1.[address] 3.430.2.7 Hospit a .3.751654 l .8 2021-05-26 2021-05-26 Outpatient Adams_R DMG DMG [id number] 021 Devoted 03:30:00 03:30:00 1206 Medica l Group 2021-05-26 2021-05-26 Telephone Anthony, 1.2.840.1 [id number] 2099 [id number] Methodi 00:00:00 00:00:[address] 3.430.2.7 Hospit a .3.184973 l .8 2021-05-19 2021-05-25 [facility].2.840.1 [id number] 2099 [id number] Methodi 06:00:00 15:59:00 Encounter Kye Barber 57802.1.[address] August Marilu Arvin 3.430.2.7 Hospita .3.863952 l .8 2021-05-21 2021-05-21 Outpatient DMG DMG 57003-1 021 Devoted 03:30:00 03:30:00 1201 Medica l Group 2021-05-19 2021-05-19 Anesthesia Adam, 1.2.840.1 [id number] Methodi 18:45:00 20:31:00 Event Sukhjinder 58481.1.[address] [place] 3.430.2.7 Hospit a .3.630148 l .8 2021-05-19 2021-05-19 Surgery Juwan Krueger 1.2.840.1 [id number] 91 Methodi 18:50:00 19:55:[address] 3.430.2.7 Hospit a .3.275059 l .8 2021-05-19 2021-05-19 Anesthesia Sukhjinder Medina 1.2.840.1 [id number] Methodi 12:00:00 15:14:00 Event Hanane Ledezma 70812.1.[address] 3.430.2.7 Hospit a .3.616875 l .8 2021-05-19 2021-05-19 Surgery Juwan Krueger 1.2.840.1 [id number] 27 Methodi 12:05:00 14:45:[address] 3.430.2.7 Hospit a .3.815229 l .8 2021-05-19 2021-05-19 Travel 1.2.840.1 1.2.357.833 4233 [id number] Methodi 00:00:00 00:00:[address] 3.430.2.7 0.2.7.3.698 spita .3.941726 084.8 l .8 2021-05-14 2021-05-14 Telephone Suhahia, 1.2.840.1 [id number] Methodi 00:00:00 00:00:[address] 3.430.2.7 Hospit a .3.997283 l .8 2021-05-14 2021-05-14 Prep for Anthony, 1.2.840.1 [id number] Methodi 00:00:00 00:00:00 Surgery Forrest 15807.1.[address] 3.430.2.7 Hospit a .3.330590 l .8 2021-05-13 2021-05-13 Orders Doctor JOANNA 1.2.840.114 [id number] Univers 00:00:00 00:00:00 Only Unassigned, MAGDALENO 350.1.13.10 ity of [place] [employer] [facility] [employer] 4.2.7.2.686 Baljinder as [id number] [address] 2021-05-12 2021-05-12 Office PatiJuwan 1.2.840.1 [id number] Methodi 09:02:46 09:32:[address] 3.430.2.7 Hospit a .3.291540 l .8 2021-05-12 2021-05-12 Telephone Anthony, 1.2.840.1 [id number] 2099 [id number] Methodi 00:00:00 00:00:[address] 3.430.2.7 Hospit a .3.021216 l .8 2021-05-12 2021-05-12 Travel 1.2.840.1 1.2.237.614 5077 [id number] Methodi 00:00:00 00:00:[address] 3.430.2.7 0.2.7.3.698 spita .3.377356 084.8 l .8 2021-05-08 2021-05-08 Orders Anthony, 1.2.840.1 [id number] Methodi 00:00:00 00:00:00 Only Forrest 40520.1.[address] 3.430.2.7 Hospit a .3.204791 l .8 2021-05-08 2021-05-08 Telephone Ramana, 1.2.840.1 [id number] Methodi 00:00:00 00:00:[address] 3.430.2.7 Hospit a .3.097003 l .8 2021-05-05 2021-05-05 Office Juwan Krueger 1.2.840.1 [id number] [id number] Methodi 14:18:48 15:41:[address] 3.430.2.7 Hospit a .3.139821 l .8 2021-05-05 2021-05-05 Travel 1.2.840.1 1.2.836.319 3691 [id number] Methodi 00:00:00 00:00:[address] 3.430.2.7 0.2.7.3.698 Ho spita .3.717781 084.8 l .8 2021-05-01 2021-05-01 Telephone Joe 1.2.840.1 [id number] 2099 [id number] Methodi 00:00:00 00:00:[address] [facility] 3.430.2.7 Hosp jo-ann .3.724998 l .8 2021-03-21 2021-03-21 Outpatient DMG DMG 35514-3 021 [facility] 08:01:00 08:01:00 1001 Medica l Group 2021-01-21 2021-01-29 Inpatient [facility] [id number] [facility] 15:50:00 20:14:[address] 2021-01-21 2021-01-29 Inpatient U AYDEE, [facility] CAR 7512 [facility] 10:50:00 15:14:00 AKUA 2021-01-24 2021-01-24 Outpatient DMG DMG [id number] 021 [facility] 08:00:00 08:00:00 0806 Medica l Group 2021-01-03 2021-01-03 Office DOMINIQUE Diane 1.2.840.114 [id number] [place] 07:44:43 09:30:54 Visit Alexandr HOLMANCarlos 350.1.13.58 H [facility] 9.2.7.2.686 [facility] [id number] 1 2021-01-03 2021-01-03 Office DOMINIQUE Diane 1.2.840.114 [id number] 07:44:43 09:30:54 Visit Alexandr ALTMAN 350.1.13.58 MEDICAL 9.2.7.2.686 [facility] [id number] 1 2020-12-24 2020-12-25 Outpatient nullFlavo [facility] 849 [id number] Memoria 15:32:00 04:59:00 r Disease 11 l [facility] 2020-12-24 2020-12-24 Outpatient PHILIPPE, [facility] 7511 [facility] 10:32:00 23:59:00 AMES 2020-10-27 2020-10-27 [facility] 1.2.840.114 [id number] 00:00:00 00:00:00 (Out) Oz Lehman 350.1.13.10 [place] 4.2.7.2.686 Professio [phone] [facility] 059 [facility] 2020-10-24 2020-10-24 Orders Doctor JOANNA 1.2.840.114 [id number] 00:00:00 00:00:00 Only Unassigned, MAGDALENO 350.1.13.10 [place] [employer] [facility] [facility] 4.2.7.2.686 [id number] 2020-09-24 2020-09-24 Refill [facility] 1.2.840.114 [id number] 00:00:00 00:00:00 Jose Luis Lehman 350.1.13.10 [place] 4.2.7.2.686 Professio [phone] [facility] 220 [facility] 2020-09-09 2020-09-09 [facility] 1.2.840.114 [id number] 00:00:00 00:00:00 Outreach Earl PRIMARY 350.1.13.10 Manuel CARE 4.2.7.2.686 PAVILLION [id number] [id number] 2020-07-23 2020-07-23 Office Black [facility] 1.2.203.168 [id number] 13:31:20 14:37:36 Visit Deja PRIMARY 350.1.13.10 A CARE 4.2.7.2.686 PAVILLION [id number] [id number] 2020-06-27 2020-06-27 Office [facility] 1.2.840.114 [id number] Univers 10:05:43 11:00:00 Visit Sendil Mami LEHMAN 350.1.13.10 ity [facility] 4.2.7.2.686 Amisha CANNON [id number] Sd dical [facility] 2020-06-27 2020-06-27 [facility] [id number] Univers 09:30:00 11:00:00 SENDIL ity of [facility] 2020-01-25 2020-01-31 Inpatient 1 ChivoJose husseinRei [facility] [id number] 21:31:00 18:15:00 Rei [facility] 2016-07-24 2016-07-30 [facility] [id number] Memoria 02:04:00 16:20:[address] 2016-06-10 2016-06-15 [facility] [id number] Memoria 16:02:00 18:23:00 r [place] 09 [facility] 2014-06-26 2014-06-26 [facility] [id number] Memoria 05:25:00 15:14:00 Emergency r [place] 08 [facility] 2013-04-14 2013-04-15 Emergency nullFlavo [id number] Memoria 21:04:00 01:45:00 r [facility] 07 [facility] 2012-03-14 2012-03-14 Emergency nullFlavo [id number] Memoria 16:32:00 22:39:00 r [facility] 04 [facility] 2011-11-28 2011-11-30 OU nullFlavo [facility] [id number] Memoria 12:16:00 20:40:00 r [facility] 03 [facility] 2011-09-18 2011-09-18 Emergency nullFlavo [facility] [id number] Memoria 08:23:00 13:34:00 r [facility] 02 [facility] 2011-09-01 2011-09-09 Inpatient nullFlavo [facility] [id number] Memoria 01:40:00 15:00:00 r Medical 01 [facility] 2011-08-19 2011-08-23 Inpatient nullFlavo [facility] [id number] Memoria 14:25:00 15:28:00 r Medical l [facility] Results Test Description Test Time Test Comments Results Result Comments Source AFB culture 2021-07-22 18:13:19 Test Item Value Reference Range Interpretation Comme nts AFB culture isolate No growth after 6 weeks of Specimen InformationSpecimen (test code = 543-9) incubation. Source: DrainageSpecimen Site: Thigh: infected wound right [facility] [id number] 18:15:13 Test Item Value Reference Range Interpretation Comments Fungus culture No growth Specimen isolate (test after 4 weeks InformationSp ecimen code = 1441) of Source: TissueS pecimen incubation. Site: [facility] [id number] 14:31:13 Test Item Value Reference Range Interpretation Comments Anaerobic No anaerobic Specimen culture isolate organisms InformationS pecimen (test code = isolated. Source: TissueS pecimen 552) [id number] 16:51:58 Test Item Value Reference Range Interpretation Comments Gram stain No WBC's or Specimen isolate (test organisms seen. Information Specimen code = 1469) Source: TissueS pecimen [facility] [id number] 16:51:58 Test Item Value Reference Range Interpretation Comments Aerobic culture No growth Specimen isolate (test after 3 days. InformationSp ecimen code = 498) Source: TissueS pecimen Site: [facility] [id number] 16:51:58 Test Item Value Reference Range Interpretation Comments Fungus smear No fungi Specimen (test code = observed. InformationSpec imen Source: 1443) TissueSpecimen Site: [facility] [id number] 17:00:57 Test Item Value Reference Range Interpretation Comments POC glucose (test code 79 mg/dL 65-99 Opera tor Name: Eboni = [id number]) AmiDevice ID: [id number] [facility] , [id number] 20:46:00 Test Item Value Reference Range Interpretation Comments test urine, POC (test Negative code = [id number]) Internal QC (test code = 257) QC acceptable [facility] 12 qule5450-23-19 17:27:33 Test Item Value Reference Range Interpretation Comments Ventricular rate (test code = 253) Atrial rate (test code = 255) WV interval (test code = 266) QRSD interval [...] of 04-JUN-2021 18:19,-No significant change was found- [facility] and [id number] 11:06:00 Test Item Value Reference Range Interpretation Comments ABO grouping (test code = 883-9) B Rh type (test code = 00942-8) POS Antibody screen (gel) (test code = NEG 890-4) [facility] WorthTissue wligdsh7949-19-65 20:18:46 Test Item Value Reference Range Interpretation Comments Tissue culture No growth Specimen isolate (test after 3 days. InformationSp ecimen code = 24861-4) Source: Tiss ueSpecimen Site: Thigh: in fected right thigh wou nd [facility] WorthAF[facility] [id number] 20:24:42 Test Item Value Reference Range Interpretation Comments AFB stain No acid fast Specimen (test code = bacilli (AFB) InformationSpe cimen 676-7) seen. Source: Drainag eSpecimen Site: Thigh: in fected wound right th igh [facility] Worth[facility]rine nnvhdnw4571-39-39 09:49:57 Test Item Value Reference Range Interpretation Comments Urine culture No growth Specimen isolate (test after 24 InformationSpe cimen code = 29024-1) hours Source: Urin eSpecimen Site: Clean cat ch [facility] WorthAB[facility] and Rh zavohjcyztqg7837-49-28 12:52:00 Test Item Value Reference Range Interpretation Comments ABO grouping (test code = 883-9) B Rh type (test code = 71669-6) [facility] 1 Dmgdq5444-76-05 22:22:00 Test Item Value Reference Range Interpretation Comments Product name (test code Red Blood Cells -1, = 25) Leukored Unit number (test code = [id number]) Product code (test code Q6308V89 = 3092) Dispense status (test Transfused code = 24) Blood expiration date (test code = 302) Blood type code (test code = 308) Blood type (test code = B POSITIVE 1314) Compatibility (test code Compatible = 6400) [facility] gburbqj7815-06-39 20:10:46 Test Item Value Reference Range Interpretation Comments Case number (test code = [id number]) Surgical pathology See link below for report (test code = PDF Lab Report [id number]) Result status (test code This is Final Report = [id number]) for [id number] [facility] platelet pheresis, 1 Tfcfx8619-07-21 15:35:00 Test Item Value Reference Range Interpretation Comments Product name (test code Bogdan Fraire LR, Path = 25) Red cont3 Unit number (test code = [id number]) Product code (test code Q0718A14 = 3092) Dispense status (test Transfused code = 24) Blood expiration date (test code = 302) Blood type code (test code = 308) Blood type (test code = O POSITIVE 1314) Compatibility (test code Not required = 6400) [facility] WorthActivated clotting rpqj9873-26-46 12:13:24 Test Item Value Reference Range Interpretation Comments Activated clotting time See_Comment H Oper ator Name: (test code = 5298) Bryn Morales ID: [id number] [Automated mess age] The system [employer] generated this result transmitted ref erence range: 96 - 152 sec. The reference r leo was not used to interpret this result as normal/abnor mal. Lab Interpretation (test Abnormal code = 43394-6) [facility] mnrqz5139-25-58 14:37:48 Test Item Value Reference Range Interpretation Comments POC sodium (test code = 138 mmol/L 939-307 1151-0) POC potassium (test 5.5 mmol/L 3.5-5.0 H code = 6298-4) POC glucose (test code 295 mg/dL 65-99 H = 2339-0) POC creatinine (test 5.3 mg/dl 0.5-0.9 H Operato r Name: Pat code = 65515-0) [place] ID: [id number] POC hemoglobin (test 18.4 g/dL 12.0-16.0 H code = 718-7) POC hematocrit (test 54 % 37-47 H code = 4544-3) Lab Interpretation Abnormal (test code = 78330-1) [place] 371821-08-11 08:17:00 Test Item Value Reference Range Interpretation Comments Glucose Lvl (test code = Glucose Lvl) 94 70-99 [place] 56[address]-08-11 08:17:00 Test Item Value Reference Range Interpretation Comments BUN (test code = BUN) 27 7-22 [place] [address]-08-11 08:17:00 Test Item Value Reference Range Interpretation Comments Creatinine Lvl (test code = Creatinine 4.95 0.50-1.40 Lvl) [place] 006511-08-11 08:17:00 Test Item Value Reference Range Interpretation Comments Sodium Lvl (test code = Sodium Lvl) 136 135-145 [place] 006511-08-11 08:17:00 Test Item Value Reference Range Interpretation Comments Potassium Lvl (test code = Potassium 3.9 3.5-5.1 Lvl) [place] 006511-08-11 08:17:00 Test Item Value Reference Range Interpretation Comments Chloride Lvl (test code = Chloride Lvl) 103 95-109 [place] 006511-08-11 08:17:00 Test Item Value Reference Range Interpretation Comments CO2 (test code = CO2) 30 24-32 [place] 006511-08-11 08:17:00 Test Item Value Reference Range Interpretation Comments AGAP (test code = AGAP) 6.9 10.0-20.0 [place] 006511-08-11 08:17:00 Test Item Value Reference Range Interpretation Comments Calcium Lvl (test code = Calcium Lvl) 8.5 8.5-10.5 [place] [address]-08-11 08:17:00 Test Item Value Reference Range Interpretation Comments eGFR (test code = eGFR) 10 [place] 006511-08-11 08:17:00 Test Item Value Reference Range Interpretation Comments Phosphorus (test code = Phosphorus) 3.0 2.5-4.5 [facility] [id number] 08:17:00 Test Item Value Reference Range Interpretation Comments Magnesium Lvl (test code = Magnesium 2.4 1.8-2.4 Lvl) [facility] ArlingtonXerefqxQWPTOEJIFN3456-65-72 08:17:00 Test Item Value Reference Range Interpretation Comments WBC (test code = WBC) 2.3 3.7-10.4 [facility] ArlingtonZpvqkndJEGSLOWQYI7860-22-14 08:17:00 Test Item Value Reference Range Interpretation Comments RBC (test code = RBC) 2.65 4.20-5.40 [facility] ArlingtonOtvncdrJPCOHUAZVU7571-57-15 08:17:00 Test Item Value Reference Range Interpretation Comments Hgb (test code = Hgb) 7.9 12.0-16.0 [facility] ArlingtonCbgfscdNBPVXPBCQG7127-43-59 08:17:00 Test Item Value Reference Range Interpretation Comments Hct (test code = Hct) 24.0 36.0-48.0 [facility] ArlingtonFgyvrdyRZKPMQXMOP7736-06-10 08:17:00 Test Item Value Reference Range Interpretation Comments MCV (test code = MCV) 90.6 80.0-98.0 [facility] ArlingtonRgojlggHNJHCXKXZF2741-39-93 08:17:00 Test Item Value Reference Range Interpretation Comments MCH (test code = MCH) 29.7 pg 27.0-31.0 [facility] ArlingtonEhnqqgjPPHTPVNPMR1274-74-61 08:17:00 Test Item Value Reference Range Interpretation Comments MCHC (test code = MCHC) 32.7 32.0-36.0 [facility] ArlingtonRvpqwktGDSDRXDHYM8515-20-50 08:17:00 Test Item Value Reference Range Interpretation Comments RDW (test code = RDW) 19.1 11.5-14.5 [facility] ArlingtonEfuefvdSJBPQWBTWO4283-79-83 08:17:00 Test Item Value Reference Range Interpretation Comments Platelet (test code = Platelet) 71 133-450 [facility] ArlingtonQlgnobxPRCAQGYNPI9077-91-99 08:17:00 Test Item Value Reference Range Interpretation Comments MPV (test code = MPV) 9.9 7.4-10.4 [facility] ArlingtonIzgzojyNBSBCSDVJT3569-17-32 08:17:00 Test Item Value Reference Range Interpretation Comments Segs (test code = Segs) 56.1 45.0-75.0 [place] 095361-08-11 08:17:00 Test Item Value Reference Range Interpretation Comments Lymphocytes (test code = Lymphocytes) 28.9 20.0-40.0 [place] 095361-08-11 08:17:00 Test Item Value Reference Range Interpretation Comments Monocytes (test code = Monocytes) 8.1 2.0-12.0 [place] 095361-08-11 08:17:00 Test Item Value Reference Range Interpretation Comments Eosinophils (test code = 5.9 See_Comment [A utomated message] The Eosinophils) system which ge nerated this result tra nsmitted reference range : <=4.0. The reference r leo was not used to int erpret this result as normal/abnormal . [place] 095361-08-11 08:17:00 Test Item Value Reference Range Interpretation Comments Basophils (test code = 1.0 See_Comment [Aut omated message] The Basophils) system which ge nerated this result tra nsmitted reference range : <=1.0. The reference r leo was not used to int erpret this result as normal/abnormal . [facility] ArlingtonZxagqxySAIIKGOLVG8960-43-26 08:17:00 Test Item Value Reference Range Interpretation Comments Neutrophils # (test code = Neutrophils 1.3 1.5-8.1 #) [place] 095361-08-11 08:17:00 Test Item Value Reference Range Interpretation Comments Lymphocytes # (test code = Lymphocytes 0.7 1.0-5.5 #) [place] 095361-08-11 08:17:00 Test Item Value Reference Range Interpretation Comments Monocytes # (test code 0.2 See_Comment [Aut omated message] The = Monocytes #) system which generated this result tra nsmitted reference range : <=0.8. The reference r leo was not used to int erpret this result as normal/abnormal . [place] 095361-08-11 08:17:00 Test Item Value Reference Range Interpretation Comments Eosinophils # (test code 0.1 See_Comment [A utomated message] The = Eosinophils #) system ic h generated this result tra nsmitted reference range : <=0.5. The reference r leo was not used to int erpret this result as normal/abnormal . [facility]2021-08-10 09:30:00 Test Item Value Reference Range Interpretation Comments Glucose Lvl (test code = Glucose Lvl) 61 70-99 [place] 006511-08-10 09:30:00 Test Item Value Reference Range Interpretation Comments BUN (test code = BUN) 13 7-22 [place] 006511-08-10 09:30:00 Test Item Value Reference Range Interpretation Comments Creatinine Lvl (test code = Creatinine 3.71 0.50-1.40 Lvl) [place] 006511-08-10 09:30:00 Test Item Value Reference Range Interpretation Comments Sodium Lvl (test code = Sodium Lvl) 136 135-145 [place] 006511-08-10 09:30:00 Test Item Value Reference Range Interpretation Comments Potassium Lvl (test code = Potassium 4.3 3.5-5.1 Lvl) [place] 006511-08-10 09:30:00 Test Item Value Reference Range Interpretation Comments Chloride Lvl (test code = Chloride Lvl) 103 95-109 [place] 006511-08-10 09:30:00 Test Item Value Reference Range Interpretation Comments CO2 (test code = CO2) 27 24-32 [place] 006511-08-10 09:30:00 Test Item Value Reference Range Interpretation Comments Calcium Lvl (test code = Calcium Lvl) 7.9 8.5-10.5 [place] 006511-08-10 09:30:00 Test Item Value Reference Range Interpretation Comments AGAP (test code = AGAP) 10.3 10.0-20.0 [facility]ANDA [facility] PANPB2326-13-66 09:30:00 Test Item Value Reference Range Interpretation Comments eGFR (test code = eGFR) 15 [place] 006511-08-10 09:30:00 Test Item Value Reference Range Interpretation Comments Magnesium Lvl (test code = Magnesium 2.3 1.8-2.4 Lvl) [place] 006511-08-10 09:30:00 Test Item Value Reference Range Interpretation Comments Phosphorus (test code = Phosphorus) 3.1 2.5-4.5 [facility]GhoggtyCFQFHWFZXV6238-88-82 09:30:00 Test Item Value Reference Range Interpretation Comments Segs (test code = Segs) 61.5 45.0-75.0 [place] 095361-08-10 09:30:00 Test Item Value Reference Range Interpretation Comments Lymphocytes (test code = Lymphocytes) 24.6 20.0-40.0 [place] 095361-08-10 09:30:00 Test Item Value Reference Range Interpretation Comments Monocytes (test code = Monocytes) 7.4 2.0-12.0 [place] 095361-08-10 09:30:00 Test Item Value Reference Range Interpretation Comments Eosinophils (test code = 5.5 See_Comment [A utomated message] The Eosinophils) system which ge nerated this result tra nsmitted reference range : <=4.0. The reference r leo was not used to int erpret this result as normal/abnormal . [place] 095361-08-10 09:30:00 Test Item Value Reference Range Interpretation Comments Basophils (test code = 1.0 See_Comment [Aut omated message] The Basophils) system which ge nerated this result tra nsmitted reference range : <=1.0. The reference r leo was not used to int erpret this result as normal/abnormal . [place] 095361-08-10 09:30:00 Test Item Value Reference Range Interpretation Comments Neutrophils # (test code = Neutrophils 1.6 1.5-8.1 #) [place] 095361-08-10 09:30:00 Test Item Value Reference Range Interpretation Comments Lymphocytes # (test code = Lymphocytes 0.6 1.0-5.5 #) [place] 095361-08-10 09:30:00 Test Item Value Reference Range Interpretation Comments Monocytes # (test code 0.2 See_Comment [Aut omated message] The = Monocytes #) system which generated this result tra nsmitted reference range : <=0.8. The reference r leo was not used to int erpret this result as normal/abnormal . [facility] ArlingtonJjexbpfWAFOYJAAFE4428-74-64 09:30:00 Test Item Value Reference Range Interpretation Comments Eosinophils # (test code 0.1 See_Comment [A utomated message] The = Eosinophils #) system whic h generated this result tra nsmitted reference range : <=0.5. The reference r leo was not used to int erpret this result as normal/abnormal . [facility] ArlingtonVmtbisnAUYRAXOPWJ1528-47-26 09:30:00 Test Item Value Reference Range Interpretation [...] studies, if clinically indicated, are recommended. CPT: 88448 [place] 095361-08-10 09:30:00 Test Item Value Reference Range Interpretation Comments WBC (test code = WBC) 2.5 3.7-10.4 [place] 095361-08-10 09:30:00 Test Item Value Reference Range Interpretation Comments RBC (test code = RBC) 2.68 4.20-5.40 [place] 095361-08-10 09:30:00 Test Item Value Reference Range Interpretation Comments Hgb (test code = Hgb) 8.2 12.0-16.0 [place] [address]-08-10 09:30:00 Test Item Value Reference Range Interpretation Comments Hct (test code = Hct) 24.3 36.0-48.0 [place] [address]-08-10 09:30:00 Test Item Value Reference Range Interpretation Comments MCV (test code = MCV) 90.9 80.0-98.0 [place] [address]-08-10 09:30:00 Test Item Value Reference Range Interpretation Comments MCH (test code = MCH) 30.5 pg 27.0-31.0 [place] [address]-08-10 09:30:00 Test Item Value Reference Range Interpretation Comments MCHC (test code = MCHC) 33.6 32.0-36.0 [place] [address]-08-10 09:30:00 Test Item Value Reference Range Interpretation Comments RDW (test code = RDW) 19.4 11.5-14.5 [place] [address]-08-10 09:30:00 Test Item Value Reference Range Interpretation Comments Platelet (test code = Platelet) 70 133-450 [facility]YqifnehFFWZQKCSQS1934-78-54 09:30:00 Test Item Value Reference Range Interpretation Comments MPV (test code = MPV) 10.7 7.4-10.4 [place] 006511-08-09 05:10:00 Test Item Value Reference Range Interpretation Comments Glucose Lvl (test code = Glucose Lvl) 69 70-99 [facility]2021-08-09 05:10:00 Test Item Value Reference Range Interpretation Comments BUN (test code = BUN) 29 7-22 [facility]2021-08-09 05:10:00 Test Item Value Reference Range Interpretation Comments Creatinine Lvl (test code = Creatinine 5.14 0.50-1.40 Lvl) [facility]2021-08-09 05:10:00 Test Item Value Reference Range Interpretation Comments Sodium Lvl (test code = Sodium Lvl) 134 135-145 [facility]2021-08-09 05:10:00 Test Item Value Reference Range Interpretation Comments Potassium Lvl (test code = Potassium 5.1 3.5-5.1 Lvl) [facility]2021-08-09 05:10:00 Test Item Value Reference Range Interpretation Comments Chloride Lvl (test code = Chloride Lvl) 98 95-109 [facility]2021-08-09 05:10:00 Test Item Value Reference Range Interpretation Comments CO2 (test code = CO2) 29 24-32 [facility]2021-08-09 05:10:00 Test Item Value Reference Range Interpretation Comments Calcium Lvl (test code = Calcium Lvl) 7.6 8.5-10.5 [place] 006511-08-09 05:10:00 Test Item Value Reference Range Interpretation Comments AGAP (test code = AGAP) 12.1 10.0-20.0 [place] 006511-08-09 05:10:00 Test Item Value Reference Range Interpretation Comments eGFR (test code = eGFR) 10 [place] 006511-08-09 05:10:00 Test Item Value Reference Range Interpretation Comments Magnesium Lvl (test code = Magnesium 2.3 1.8-2.4 Lvl) [place] 006511-08-09 05:10:00 Test Item Value Reference Range Interpretation Comments Phosphorus (test code = Phosphorus) 5.0 2.5-4.5 [facility] ArlingtonIwiaheaJKIVASXDHI2430-15-65 05:10:00 Test Item Value Reference Range Interpretation Comments WBC (test code = WBC) 2.7 3.7-10.4 [facility] ArlingtonZhisbpsQVEAVZDFSA7281-27-18 05:10:00 Test Item Value Reference Range Interpretation Comments RBC (test code = RBC) 2.80 4.20-5.40 [facility] ArlingtonUbnllpwSKEBMDIZKK0458-96-37 05:10:00 Test Item Value Reference Range Interpretation Comments Hgb (test code = Hgb) 8.5 12.0-16.0 [facility] ArlingtonGcbvvujPJBMRKPDUN7466-43-52 05:10:00 Test Item Value Reference Range Interpretation Comments Hct (test code = Hct) 25.7 36.0-48.0 [facility] ArlingtonHjxnooeJPTIBOFKKX7660-49-46 05:10:00 Test Item Value Reference Range Interpretation Comments MCV (test code = MCV) 91.7 80.0-98.0 [facility] ArlingtonZcdjwrzYDWNKKCUCO5375-63-40 05:10:00 Test Item Value Reference Range Interpretation Comments MCH (test code = MCH) 30.4 pg 27.0-31.0 [facility] ArlingtonSplfptkYRDEVPYQXH3519-53-34 05:10:00 Test Item Value Reference Range Interpretation Comments MCHC (test code = MCHC) 33.1 32.0-36.0 [facility] ArlingtonIexwvyyXEDUOMXOQM2679-21-51 05:10:00 Test Item Value Reference Range Interpretation Comments RDW (test code = RDW) 19.2 11.5-14.5 [facility] ArlingtonScfdbftZMOXYTGJFG5831-49-42 05:10:00 Test Item Value Reference Range Interpretation Comments Platelet (test code = Platelet) 72 133-450 [facility] ArlingtonQlzbzjkSMWPSFWHQB7107-08-21 05:10:00 Test Item Value Reference Range Interpretation Comments MPV (test code = MPV) 9.9 7.4-10.4 [facility] ArlingtonKabfemwVLQDBISJKU7371-56-52 05:10:00 Test Item Value Reference Range Interpretation Comments Segs (test code = Segs) 72.6 45.0-75.0 [facility] ArlingtonWzobfqbNDDKLAGYCX7668-25-91 05:10:00 Test Item Value Reference Range Interpretation Comments Lymphocytes (test code = Lymphocytes) 15.9 20.0-40.0 [facility] ArlingtonDshbaimPATLEBIYSY0409-40-37 05:10:00 Test Item Value Reference Range Interpretation Comments Monocytes (test code = Monocytes) 7.3 2.0-12.0 [facility] ArlingtonOrhhogzBYJJUTDQPI9984-84-75 05:10:00 Test Item Value Reference Range Interpretation Comments Eosinophils (test code = 3.4 See_Comment [A utomated message] The Eosinophils) system which ge nerated this result tra nsmitted reference range : <=4.0. The reference r leo was not used to int erpret this result as normal/abnormal . [facility] ArlingtonExxhnysWLTXVJLPBS3581-57-83 05:10:00 Test Item Value Reference Range Interpretation Comments Basophils (test code = 0.8 See_Comment [Aut omated message] The Basophils) system which ge nerated this result tra nsmitted reference range : <=1.0. The reference r leo was not used to int erpret this result as normal/abnormal . [facility] ArlingtonGifqgsdVWAYTWXBBD0681-77-26 05:10:00 Test Item Value Reference Range Interpretation Comments Neutrophils # (test code = Neutrophils 1.9 1.5-8.1 #) [facility] ArlingtonBedqbwfNLHEFTDFWT4293-81-33 05:10:00 Test Item Value Reference Range Interpretation Comments Lymphocytes # (test code = Lymphocytes 0.4 1.0-5.5 #) [facility] ArlingtonPsgdmmySWPOZGSXTP5351-06-14 05:10:00 Test Item Value Reference Range Interpretation Comments Monocytes # (test code 0.2 See_Comment [Aut omated message] The = Monocytes #) system which generated this result tra nsmitted reference range : <=0.8. The reference r leo was not used to int erpret this result as normal/abnormal . [facility] ArlingtonFjpnthyZZVMUZLOEM8145-27-64 05:10:00 Test Item Value Reference Range Interpretation Comments Eosinophils # (test code 0.1 See_Comment [A utomated message] The = Eosinophils #) system whic h generated this result tra nsmitted reference range : <=0.5. The reference r leo was not used to int erpret this result as normal/abnormal . [facility]ENTERCJVVRTG0887-39-82 05:10:00 Test Item Value Reference Range Interpretation Comments Ca Ion WB (test code = Ca Ion WB) 1.10 1.05-1.25 [place] 228611-08-09 05:10:00 Test Item Value Reference Range Interpretation Comments Ca Norm WB (test code = Ca Norm WB) 1.06 1.05-1.25 [facility]2021-08-08 18:36:00 Test Item Value Reference Range Interpretation Comments C difficile DNA (test Negative (01/26/21 1:36 code = C difficile DNA) PM) [facility]2021-08-08 07:33:00 Test Item Value Reference Range Interpretation Comments Ca Ion WB (test code = Ca Ion WB) 1.12 1.05-1.25 [facility]2021-08-08 07:33:00 Test Item Value Reference Range Interpretation Comments Ca Norm WB (test code = Ca Norm WB) 1.07 1.05-1.25 [facility]2021-08-08 07:30:00 Test Item Value Reference Range Interpretation Comments Glucose Lvl (test code = Glucose Lvl) 65 70-99 [facility]2021-08-08 07:30:00 Test Item Value Reference Range Interpretation Comments BUN (test code = BUN) 21 7-22 [facility]2021-08-08 07:30:00 Test Item Value Reference Range Interpretation Comments Creatinine Lvl (test code = Creatinine 4.18 0.50-1.40 Lvl) [facility]2021-08-08 07:30:00 Test Item Value Reference Range Interpretation Comments Sodium Lvl (test code = Sodium Lvl) 136 135-145 [facility]2021-08-08 07:30:00 Test Item Value Reference Range Interpretation Comments Potassium Lvl (test code = Potassium 4.5 3.5-5.1 Lvl) [facility]2021-08-08 07:30:00 Test Item Value Reference Range Interpretation Comments Chloride Lvl (test code = Chloride Lvl) 99 95-109 [place] 006511-08-08 07:30:00 Test Item Value Reference Range Interpretation Comments CO2 (test code = CO2) 31 24-32 [place] 006511-08-08 07:30:00 Test Item Value Reference Range Interpretation Comments AGAP (test code = AGAP) 10.5 10.0-20.0 [place] 006511-08-08 07:30:00 Test Item Value Reference Range Interpretation Comments Calcium Lvl (test code = Calcium Lvl) 7.9 8.5-10.5 [place] 006511-08-08 07:30:00 Test Item Value Reference Range Interpretation Comments eGFR (test code = eGFR) 13 [place] 006511-08-08 07:30:00 Test Item Value Reference Range Interpretation Comments Magnesium Lvl (test code = Magnesium 2.2 1.8-2.4 Lvl) [place] 006511-08-08 07:30:00 Test Item Value Reference Range Interpretation Comments Phosphorus (test code = Phosphorus) 4.4 2.5-4.5 [place] 095361-08-08 07:30:00 Test Item Value Reference Range Interpretation Comments WBC (test code = WBC) 2.3 3.7-10.4 [place] 095361-08-08 07:30:00 Test Item Value Reference Range Interpretation Comments RBC (test code = RBC) 2.88 4.20-5.40 [place] 095361-08-08 07:30:00 Test Item Value Reference Range Interpretation Comments Hgb (test code = Hgb) 8.6 12.0-16.0 [place] 095361-08-08 07:30:00 Test Item Value Reference Range Interpretation Comments Hct (test code = Hct) 26.6 36.0-48.0 [place] 095361-08-08 07:30:00 Test Item Value Reference Range Interpretation Comments MCV (test code = MCV) 92.2 80.0-98.0 [place] 51034-08-08 07:30:00 Test Item Value Reference Range Interpretation Comments MCH (test code = MCH) 29.8 pg 27.0-31.0 [place] 095361-08-08 07:30:00 Test Item Value Reference Range Interpretation Comments MCHC (test code = MCHC) 32.4 32.0-36.0 [place] 095361-08-08 07:30:00 Test Item Value Reference Range Interpretation Comments RDW (test code = RDW) 19.7 11.5-14.5 [place] 095361-08-08 07:30:00 Test Item Value Reference Range Interpretation Comments Platelet (test code = Platelet) 83 133-450 [place] 095361-08-08 07:30:00 Test Item Value Reference Range Interpretation Comments MPV (test code = MPV) 10.2 7.4-10.4 [place] 095361-08-08 07:30:00 Test Item Value Reference Range Interpretation Comments Segs (test code = Segs) 64.0 45.0-75.0 [place] 095361-08-08 07:30:00 Test Item Value Reference Range Interpretation Comments Lymphocytes (test code = Lymphocytes) 24.1 20.0-40.0 [place] 095361-08-08 07:30:00 Test Item Value Reference Range Interpretation Comments Monocytes (test code = Monocytes) 7.0 2.0-12.0 [place] 095361-08-08 07:30:00 Test Item Value Reference Range Interpretation Comments Eosinophils (test code = 3.7 See_Comment [A utomated message] The Eosinophils) system which ge nerated this result tra nsmitted reference range : <=4.0. The reference r leo was not used to int erpret this result as normal/abnormal . [facility] ArlingtonNdpdsanOICAXORHAW7397-56-89 07:30:00 Test Item Value Reference Range Interpretation Comments Basophils (test code = 1.2 See_Comment [Aut omated message] The Basophils) system which ge nerated this result tra nsmitted reference range : <=1.0. The reference r leo was not used to int erpret this result as normal/abnormal . [facility] ArlingtonWobvitiSMCMAIONAB0145-64-33 07:30:00 Test Item Value Reference Range Interpretation Comments Neutrophils # (test code = Neutrophils 1.5 1.5-8.1 #) [place] 095361-08-08 07:30:00 Test Item Value Reference Range Interpretation Comments Lymphocytes # (test code = Lymphocytes 0.6 1.0-5.5 #) [place] 095361-08-08 07:30:00 Test Item Value Reference Range Interpretation Comments Monocytes # (test code 0.2 See_Comment [Aut omated message] The = Monocytes #) system which generated this result tra nsmitted reference range : <=0.8. The reference r leo was not used to int erpret this result as normal/abnormal . [facility] ArlingtonSkgmyoxCVREPDATIW2315-71-72 07:30:00 Test Item Value Reference Range Interpretation Comments Eosinophils # (test code 0.1 See_Comment [A utomated message] The = Eosinophils #) system IMayGouic h generated this result tra nsmitted reference range : <=0.5. The reference r leo was not used to int erpret this result as normal/abnormal . [place] 006511-08-07 09:32:00 Test Item Value Reference Range Interpretation Comments Glucose Lvl (test code = Glucose Lvl) 59 70-99 [place] 006511-08-07 09:32:00 Test Item Value Reference Range Interpretation Comments BUN (test code = BUN) 11 7-22 [place] [address]885-08-07 09:32:00 Test Item Value Reference Range Interpretation Comments Creatinine Lvl (test code = Creatinine 2.75 0.50-1.40 Lvl) [place] 006511-08-07 09:32:00 Test Item Value Reference Range Interpretation Comments Sodium Lvl (test code = Sodium Lvl) 138 135-145 [place] 006511-08-07 09:32:00 Test Item Value Reference Range Interpretation Comments Potassium Lvl (test code = Potassium 4.1 3.5-5.1 Lvl) [place] 006511-08-07 09:32:00 Test Item Value Reference Range Interpretation Comments Chloride Lvl (test code = Chloride Lvl) 104 95-109 [place] 006511-08-07 09:32:00 Test Item Value Reference Range Interpretation Comments CO2 (test code = CO2) 29 24-32 [place] 006511-08-07 09:32:00 Test Item Value Reference Range Interpretation Comments Calcium Lvl (test code = Calcium Lvl) 8.3 8.5-10.5 [place] 006511-08-07 09:32:00 Test Item Value Reference Range Interpretation Comments AGAP (test code = AGAP) 9.1 10.0-20.0 [place] 006511-08-07 09:32:00 Test Item Value Reference Range Interpretation Comments eGFR (test code = eGFR) 21 [place] 006511-08-07 09:32:00 Test Item Value Reference Range Interpretation Comments Magnesium Lvl (test code = Magnesium 2.2 1.8-2.4 Lvl) [facility]2021-08-07 09:32:00 Test Item Value Reference Range Interpretation Comments Phosphorus (test code = Phosphorus) 3.9 2.5-4.5 [place] 095361-08-07 09:32:00 Test Item Value Reference Range Interpretation Comments WBC (test code = WBC) 2.3 3.7-10.4 [place] 095361-08-07 09:32:00 Test Item Value Reference Range Interpretation Comments RBC (test code = RBC) 2.78 4.20-5.40 [place] 095361-08-07 09:32:00 Test Item Value Reference Range Interpretation Comments Hgb (test code = Hgb) 8.4 12.0-16.0 [facility] ArlingtonQzcjmreGKCBPKYVIR0975-31-81 09:32:00 Test Item Value Reference Range Interpretation Comments Hct (test code = Hct) 25.2 36.0-48.0 [facility] ArlingtonFyfhulkWFSHHSUIFC8147-25-82 09:32:00 Test Item Value Reference Range Interpretation Comments MCV (test code = MCV) 90.5 80.0-98.0 [facility] ArlingtonVsawtseATSNZCPEAH5725-17-66 09:32:00 Test Item Value Reference Range Interpretation Comments MCH (test code = MCH) 30.4 pg 27.0-31.0 [facility] ArlingtonLloqduiSRDCZUVIVW4520-33-41 09:32:00 Test Item Value Reference Range Interpretation Comments MCHC (test code = MCHC) 33.5 32.0-36.0 [facility] ArlingtonVwjhpskKFNHJFTRYG0686-07-28 09:32:00 Test Item Value Reference Range Interpretation Comments RDW (test code = RDW) 19.0 11.5-14.5 [facility] ArlingtonVwbktuyCHCWRNLBYV8149-82-57 09:32:00 Test Item Value Reference Range Interpretation Comments Platelet (test code = Platelet) 87 133-450 [facility] ArlingtonSelinalNZYNQMSURF4868-48-74 09:32:00 Test Item Value Reference Range Interpretation Comments MPV (test code = MPV) 10.0 7.4-10.4 [facility] BANK IQJIELR6125-26-95 05:33:00 Test Item Value Reference Range Interpretation Comments ABO/Rh (test code = ABO/Rh) B [facility] RVNGRNX0112-24-49 05:33:00 Test Item Value Reference Range Interpretation Comments Antibody Scrn (test Negative (01/24/21 12:33 code = Antibody Scrn) AM) [facility] ArlingtonQmyuociOQFQXJONCE4308-48-20 05:33:00 Test Item Value Reference Range Interpretation Comments Segs (test code = Segs) 60.2 45.0-75.0 [facility] ArlingtonJnznomwOHOJYILFBU8492-39-14 05:33:00 Test Item Value Reference Range Interpretation Comments Lymphocytes (test code = Lymphocytes) 28.6 20.0-40.0 [facility] ArlingtonQctenorNQVEFBNOGO1916-18-03 05:33:00 Test Item Value Reference Range Interpretation Comments Monocytes (test code = Monocytes) 5.8 2.0-12.0 [facility] ArlingtonOlhxtgcEKPZPRBWXX9564-66-79 05:33:00 Test Item Value Reference Range Interpretation Comments Eosinophils (test code = 4.2 See_Comment [A utomated message] The Eosinophils) system which ge nerated this result tra nsmitted reference range : <=4.0. The reference r leo was not used to int erpret this result as normal/abnormal . [facility] ArlingtonAaehisgHHOVNGTSBN1487-14-17 05:33:00 Test Item Value Reference Range Interpretation Comments Basophils (test code = 1.2 See_Comment [Aut omated message] The Basophils) system which ge nerated this result tra nsmitted reference range : <=1.0. The reference r leo was not used to int erpret this result as normal/abnormal . [facility] ArlingtonThbyzjvLUNMFWMVMZ9308-58-83 05:33:00 Test Item Value Reference Range Interpretation Comments Neutrophils # (test code = Neutrophils 2.2 1.5-8.1 #) [facility] ArlingtonFaprcvcOFQIORMFBE4887-77-79 05:33:00 Test Item Value Reference Range Interpretation Comments Lymphocytes # (test code = Lymphocytes 1.1 1.0-5.5 #) [facility] ArlingtonKtvtqzcGCMXAIQGPM0118-86-34 05:33:00 Test Item Value Reference Range Interpretation Comments Monocytes # (test code 0.2 See_Comment [Aut omated message] The = Monocytes #) system which generated this result tra nsmitted reference range : <=0.8. The reference r leo was not used to int erpret this result as normal/abnormal . [facility] ArlingtonQoipqxlHXFYSPOXOQ5972-64-65 05:33:00 Test Item Value Reference Range Interpretation Comments Eosinophils # (test code 0.2 See_Comment [A utomated message] The = Eosinophils #) system whic h generated this result tra nsmitted reference range : <=0.5. The reference r leo was not used to int erpret this result as normal/abnormal . [facility] ArlingtonIlrvubmMLNNPCUKNL0058-35-99 05:53:00 Test Item Value Reference Range Interpretation Comments PT (test code = PT) 14.4 s 12.0-14.7 [facility] ArlingtonXjqffxaGONYOXVGQH6025-98-35 05:53:00 Test Item Value Reference Range Interpretation Comments INR (test code = INR) 1.13 1 0.85-1.17 [facility] ArlingtonXtrrlruALJHPSDKGY3334-76-11 05:53:00 Test Item Value Reference Range Interpretation Comments Fibrinogen Lvl (test code = Fibrinogen 319 230-510 Lvl) [facility] ArlingtonTvwsgkqZZTUMNCXPG1172-94-07 05:53:00 Test Item Value Reference Range Interpretation Comments Thrombin Time (test code = Thrombin 15.9 s 15.0-21.2 Time) [facility] ArlingtonVpntojmLVGMBMSURT9290-71-49 05:53:00 Test Item Value Reference Range Interpretation Comments PTT (test code = PTT) 47.0 s 22.9-35.8 [facility] ArlingtonVizsmkcUPBIHHDFDG1130-64-53 05:53:00 Test Item Value Reference Range Interpretation Comments D-Dimer (test code = D-Dimer) 0.91 [place] 095361-08-05 05:53:00 Test Item Value Reference Range Interpretation Comments Basophils # (test code 0.1 See_Comment [Aut omated message] The = Basophils #) system which generated this result tra nsmitted reference range : <=0.2. The reference r leo was not used to int erpret this result as normal/abnormal . [facility]ownPARATHYROID [id number] 05:53:00 Test Item Value Reference Range Interpretation Comments Ca Ion WB (test code = Ca Ion WB) 1.24 1.05-1.25 [facility] XNSCPXO3351-54-00 05:53:00 Test Item Value Reference Range Interpretation Comments Ca Norm WB (test code = Ca Norm WB) 1.25 1.05-1.25 [facility] [id number] 10:09:00 Test Item Value Reference Range Interpretation Comments ALT (test code = ALT) 49 See_Comment [Auto mated message] The system which ge nerated this result transmit rohit reference range : <=65. The reference range was not used to interpr et this result as reji l/abnormal. [facility] [id number] 10:09:00 Test Item Value Reference Range Interpretation Comments Albumin Lvl (test code = Albumin Lvl) 2.8 3.5-5.0 [facility] WWZKD4119-56-07 10:09:00 Test Item Value Reference Range Interpretation Comments Alk Phos (test code = Alk Phos) 41 39-136 [facility] [id number] 10:09:00 Test Item Value Reference Range Interpretation Comments Bili Direct (test code 0.2 See_Comment [Aut omated message] The = Bili Direct) system which generated this result tra nsmitted reference range : <=0.3. The reference r leo was not used to int erpret this result as reji l/abnormal. [facility] [id number] 10:09:00 Test Item Value Reference Range Interpretation Comments Bili Total (test code = Bili Total) 0.6 0.2-1.3 [facility] FMKFT5928-99-04 10:09:00 Test Item Value Reference Range Interpretation Comments Bili Indirect (test 0.4 See_Comment [Automa rohit message] The code = Bili Indirect) system which generated this result tra nsmitted reference range : <=1.0. The reference r leo was not used to int erpret this result as normal/abnormal . [facility] [employer] [id number] 10:09:00 Test Item Value Reference Range Interpretation Comments Total Protein (test code = Total 5.6 6.4-8.4 Protein) [facility] [id number] 10:09:00 Test Item Value Reference Range Interpretation Comments AST (test code = AST) 33 See_Comment [Auto mated message] The system which ge nerated this result transmit rohit reference range : <=37. The reference range was not used to interpr et this result as reji l/abnormal. [facility] [id number] 10:09:00 Test Item Value Reference Range Interpretation Comments Globulin (test code = Globulin) 2.8 2.7-4.2 [facility] [id number] 10:09:00 Test Item Value Reference Range Interpretation Comments A/G Ratio (test code = A/G Ratio) 1.0 1 0.7-1.6 [facility] [id number] 10:09:00 Test Item Value Reference Range Interpretation Comments Amylase Lvl (test code = Amylase Lvl) 19 25-115 [facility] [id number] 10:09:00 Test Item Value Reference Range Interpretation Comments Lipase Lvl (test code = Lipase Lvl) no gt 73-393 [facility] UptownEbhnevkHCKTADKZLI3639-46-12 10:09:00 Test Item Value Reference Range Interpretation Comments PTT (test code = PTT) 41.4 s 22.9-35.8 [facility] UptownQdftpddJJKPKIZSPF6995-21-20 10:09:00 Test Item Value Reference Range Interpretation Comments PT (test code = PT) 15.4 s 12.0-14.7 [facility] CenterCvnrieoQSYZNUISAY4553-25-05 10:09:00 Test Item Value Reference Range Interpretation Comments INR (test code = INR) 1.24 1 0.85-1.17 [facility] UptownNnfvjtfZTZNBOLKZZ1425-16-24 10:09:00 Test Item Value Reference Range Interpretation Comments Fibrinogen Lvl (test code = Fibrinogen 312 230-510 Lvl) [facility] UptownZxifdjpTNMWKFFFYP8611-51-64 10:09:00 Test Item Value Reference Range Interpretation Comments Thrombin Time (test code = Thrombin 16.6 s 15.0-21.2 Time) [facility] UptownWcjovepINXBUYSOUB8242-44-92 10:09:00 Test Item Value Reference Range Interpretation Comments D-Dimer (test code = D-Dimer) 4.91 [facility] UptownKzfmsffFJWFUDISYL8451-52-56 10:09:00 Test Item Value Reference Range Interpretation Comments Basophils # (test code 0.1 See_Comment [Aut omated message] The = Basophils #) system which generated this result tra nsmitted reference range : <=0.2. The reference r leo was not used to int erpret this result as normal/abnormal . [facility] FYYLVJCTD4991-34-38 10:09:00 Test Item Value Reference Range Interpretation Comments Hgb A1C (test code = Hgb A1C) 5.6 [facility]ownCHEM [id number] 09:07:00 Test Item Value Reference Range Interpretation Comments Amylase Lvl (test code = Amylase Lvl) 4 25-115 [facility] UptownMghuzfcXNVMBLWCBA1509-75-88 09:07:00 Test Item Value Reference Range Interpretation Comments Thrombin Time (test code = Thrombin 18.0 s 15.0-21.2 Time) [facility]MltcuhnDHSBSETBGQ8516-90-54 09:07:00 Test Item Value Reference Range Interpretation Comments PT (test code = PT) 24.6 s 12.0-14.7 [facility] HospitalLgfclzsQTRCEVWHUC1803-41-52 09:07:00 Test Item Value Reference Range Interpretation Comments INR (test code = INR) 2.31 1 0.85-1.17 [facility] HospitalSujtepiLKJSNWPSQP4780-99-08 09:07:00 Test Item Value Reference Range Interpretation Comments PTT (test code = PTT) 57.5 s 22.9-35.8 [facility] HospitalZzcdhcbPRZSBSSEPI4230-30-93 09:07:00 Test Item Value Reference Range Interpretation Comments Fibrinogen Lvl (test code = Fibrinogen 125 230-510 Lvl) [facility] HospitalFuvyjsaQDIBXAHJNX8931-10-12 09:07:00 Test Item Value Reference Range Interpretation Comments D-Dimer (test code = D-Dimer) 2.28 [facility] [id number] 04:52:00 Test Item Value Reference Range Interpretation Comments RBC product (test code Product available = RBC product) (01/21/21 11:52 PM) [facility]ownCARVideo PassportsAC [id number] 00:38:00 Test Item Value Reference Range Interpretation Comments Troponin-I (test code no gt See_Comment [Auto mated message] The = Troponin-I) system which g enerated this result transmit rohit reference range : <=0.40. The reference r leo was not used to interpr et this result as reji l/abnormal. [facility]ownSky Storage [id number] 17:47:00 Test Item Value Reference Range Interpretation Comments BNP (test code = BNP) 2324 [facility]own[facility] [id number] 17:47:00 Test Item Value Reference Range Interpretation Comments Troponin-I (test code 0.02 See_Comment [Auto mated message] The = Troponin-I) system which g enerated this result transmit rohit reference range : <=0.40. The reference r leo was not used to interpr et this result as reji l/abnormal. [facility] UptownKomixevFGAKTPSGTI6736-77-46 17:47:00 Test Item Value Reference Range Interpretation Comments Hep Bs Ag (test code Negative *NA*(01/21/21 = Hep Bs Ag) 12:47 PM) [facility] [id number] 17:43:00 Test Item Value Reference Range Interpretation Comments B/C Ratio (test code = B/C Ratio) 5 1 6-25 [facility] [id number] 17:43:00 Test Item Value Reference Range Interpretation Comments ALT (test code = ALT) 66 See_Comment [Auto mated message] The system which ge nerated this result transmit rohit reference range : <=65. The reference range was not used to interpr et this result as reji l/abnormal. [facility] [employer] [id number] 17:43:00 Test Item Value Reference Range Interpretation Comments Albumin Lvl (test code = Albumin Lvl) 3.0 3.5-5.0 [facility] [employer] [id number] 17:43:00 Test Item Value Reference Range Interpretation Comments Alk Phos (test code = Alk Phos) 40 39-136 [facility] [id number] 17:43:00 Test Item Value Reference Range Interpretation Comments Bili Total (test code = Bili Total) 0.5 0.2-1.3 [facility] [id number] 17:43:00 Test Item Value Reference Range Interpretation Comments Total Protein (test code = Total 5.7 6.4-8.4 Protein) [facility] [id number] 17:43:00 Test Item Value Reference Range Interpretation Comments AST (test code = AST) 52 See_Comment [Auto mated message] The system which ge nerated this result transmit rohit reference range : <=37. The reference range was not used to interpr et this result as reji l/abnormal. [facility] [employer] [id number] 17:43:00 Test Item Value Reference Range Interpretation Comments Globulin (test code = Globulin) 2.7 2.7-4.2 [facility] [id number] 17:43:00 Test Item Value Reference Range Interpretation Comments A/G Ratio (test code = A/G Ratio) 1.1 1 0.7-1.6 [facility] [id number] 17:43:00 Test Item Value Reference Range Interpretation Comments Lactic Acid Lvl (test code = Lactic 1.1 0.5-2.2 Acid Lvl) [facility] [id number] 16:20:00 Test Item Value Reference Range Interpretation Comments ABO/Rh (test code = ABO/Rh) B POS [facility] [id number] 16:20:00 Test Item Value Reference Range Interpretation Comments Antibody Scrn (test Negative (01/21/21 11:20 code = Antibody Scrn) AM) [facility] HospitalIveradyBURDIRODOH0260-22-17 16:20:00 Test Item Value Reference Range Interpretation Comments Anisocyte (test code = 1+ *ABN*(01/21/21 Anisocyte) 11:20 AM) [facility] [id number] 15:35:00 Test Item Value Reference Range Interpretation Comments Lactase Lvl (test code = Lactase Lvl) 2.0 [facility] [id number] 15:35:00 Test Item Value Reference Range Interpretation Comments Sucrase Lvl (test code = Sucrase Lvl) 38.6 [facility]ptownCash Check CardKIN[facility] [id number] 15:35:00 Test Item Value Reference Range Interpretation Comments Maltase Lvl (test code = Maltase Lvl) 177.2 [facility]ptownLeosphereNOVANT HEALTH LAB [id number] 15:35:00 Test Item Value Reference Range Interpretation Comments Palatinase Lvl (test code = Palatinase 13.8 Lvl) [facility] CenterQydogecTTTPJWFUALPC7824-58-04 13:21:00 Test Item Value Reference Range Interpretation Comments Potassium WB (test code = Potassium WB) 5.1 3.5-5.1 [facility] UptownVmwgxugLACSYKTBDRMSY0811-31-25 13:21:00 Test Item Value Reference Range Interpretation Comments S Preg (test code = S Negative 8*NA*(01/21/21 Preg) 8:21 AM) [facility] UptownUymmmkuIQGZROIZLZ8184-53-23 11:19:00 Test Item Value Reference Range Interpretation Comments Coronavirus (COVID-19) Not Detected (01/21/21 EMANUEL (test code = 6:19 AM) Coronavirus (COVID-19) EMANUEL) [facility] [id number] 16:39:05 Test Item Value Reference Range Interpretation Comments Glucose POC (test 183 mg/dL 70-115 H If you con vice president corporate communications your code = Glucose POC) patient critically ill, the Merlin-Accu Check Infrom II meter should not be used for Glucose determination. Draw a venous Glucose and send to the main Lab for analysis. Urine Kxkoabh9098-81-49 11:32:13 Test Item Value Reference Range Interpretation [...] Escherichia coli C Urine Added by GL_SJM_UA_CUL_INDPOC [id number] 07:52:10 Test Item Value Reference Range Interpretation Comments Glucose POC (test 160 mg/dL 70-115 H If you con vice president corporate communications your code = Glucose POC) patient critically ill, the Merlin-Accu Check Infrom II meter should not be used for Glucose determination. Draw a venous Glucose and send to the main Lab for analysis. POC [id number] 19:32:05 Test Item Value Reference Range Interpretation Comments Glucose POC (test 184 mg/dL 70-115 H If you con vice president corporate communications your code = Glucose POC) patient critically ill, the Merlin-Accu Check Infrom II meter should not be used for Glucose determination. Draw a venous Glucose and send to the main Lab for analysis. POC Jrbrfcs8631-08-07 17:16:35 Test Item Value Reference Range Interpretation Comments Glucose POC (test 281 mg/dL 70-115 H Notify RN or MDIf you code = Glucose POC) consider your patient critically ill, the Merlin-Accu Chec k Infrom II meter should not be used for Glucos e determination. Draw a venous Glucose and send to the main Lab for analysis. POC [id number] 12:00:38 Test Item Value Reference Range Interpretation Comments Glucose POC (test 138 mg/dL 70-115 H Notify RN or MDIf you code = Glucose POC) consider your patient critically ill, the Merlin-Accu Chec k Infrom II meter should not be used for Glucos e determination. Draw a venous Glucose and send to the main Lab for analysis. POC [id number] 07:41:32 Test Item Value Reference Range Interpretation Comments Glucose POC (test 206 mg/dL 70-115 H Notify RN or MDIf you code = Glucose POC) consider your patient critically ill, the Merlin-Accu Chec k Infrom II meter should not be used for Glucos e determination. Draw a venous Glucose and send to the main Lab for analysis. Urinalysis Euthvjhsrws2052-05-33 21:07:21 Test Item Value Reference Range Interpretation Comments UA WBC (test code = UA WBC) TNTC 0-5 A UA RBC (test code = UA RBC) 6-10 0-5 A UA Bacteria (test code = UA Bacteria) Profuse A UA Squam Epithelial (test code = UA 6-10 A Squam Epithelial) Urinalysis with Culture, if [id number] 20:35:14 Test Item Value Reference Range Interpretation [...] Micro Indicated Not Indicated A Ind?) POC [id number] 19:06:34 Test Item Value Reference Range Interpretation Comments Glucose POC (test 207 mg/dL 70-115 H If you con vice president corporate communications your code = Glucose POC) patient critically ill, the Merlin-Accu Check Infrom II meter should not be used for Glucose determination. Draw a venous Glucose and send to the main Lab for analysis. POC [id number] 17:12:03 Test Item Value Reference Range Interpretation Comments Glucose POC (test 173 mg/dL 70-115 H Notify RN or MDIf you code = Glucose POC) consider your patient critically ill, the Merlin-Accu Chec k Infrom II meter should not be used for Glucos e determination. Draw a venous Glucose and send to the main Lab for analysis. POC [id number] 11:58:01 Test Item Value Reference Range Interpretation Comments Glucose POC (test 289 mg/dL 70-115 H Notify RN or MDIf you code = Glucose POC) consider your patient critically ill, the Merlin-Accu Chec k Infrom II meter should not be used for Glucos e determination. Draw a venous Glucose and send to the main Lab for analysis. POC [id number] 08:19:37 Test Item Value Reference Range Interpretation Comments Glucose POC (test 201 mg/dL 70-115 H Notify RN or MDIf you code = Glucose POC) consider your patient critically ill, the Merlin-Accu Chec k Infrom II meter should not be used for Glucos e determination. Draw a venous Glucose and send to the main Lab for analysis. POC [id number] 20:37:35 Test Item Value Reference Range Interpretation Comments Glucose POC (test 272 mg/dL 70-115 H If you con vice president corporate communications your code = Glucose POC) patient critically ill, the Merlin-Accu Check Infrom II meter should not be used for Glucose determination. Draw a venous Glucose and send to the main Lab for analysis. POC [id number] 17:23:05 Test Item Value Reference Range Interpretation Comments Glucose POC (test 229 mg/dL 70-115 H If you con vice president corporate communications your code = Glucose POC) patient critically ill, the Merlin-Accu Check Infrom II meter should not be used for Glucose determination. Draw a venous Glucose and send to the main Lab for analysis. POC [id number] 12:01:01 Test Item Value Reference Range Interpretation Comments Glucose POC (test 155 mg/dL 70-115 H If you con vice president corporate communications your code = Glucose POC) patient critically ill, the Merlin-Accu Check Infrom II meter should not be used for Glucose determination. Draw a venous Glucose and send to the main Lab for analysis. POC [id number] 08:07:32 Test Item Value Reference Range Interpretation Comments Glucose POC (test 248 mg/dL 70-115 H If you con vice president corporate communications your code = Glucose POC) patient critically ill, the Merlin-Accu Check Infrom II meter should not be used for Glucose determination. Draw a venous Glucose and send to the main Lab for analysis. IG [id number] 06:50:39 Test Item Value Reference Range Interpretation Comments IG (test code = IG) 0.7 % 0.0-5.0 IG Abs (test code = IG Abs) 0 x10 N Complete Blood Count with [id number] 06:50:38 Test Item Value Reference Range Interpretation [...] code = IPF) 0 % N Automated [id number] 06:50:38 Test Item Value Reference Range Interpretation Comments Neutro Auto (test code = Neutro 50.3 % 36.0-70.0 Auto) Lymph Auto (test code = Lymph Auto) 38.6 % 12.0-44.0 [place] Auto (test code = [place] Auto) 7.3 % 0.0-11.0 Eos, Auto (test code = Eos, Auto) 2.4 % 0.0-7.0 Basophil Auto (test code = Basophil 0.7 % 0.0-2.0 Auto) Neutro Absolute (test code = Neutro 3.0 x10 1.6-7.4 Absolute) Lymph Absolute (test code = Lymph 2.28 x10 .50-4.60 Absolute) [place] Absolute (test code = [place] .43 x10 .00-1.20 Absolute) Eos Absolute (test code = Eos 0.14 x10 0.00-0.74 Absolute) Baso Absolute (test code = Baso 0.04 x10 0.00-0.21 Absolute) Basic Metabolic [id number] 05:38:20 Test Item Value Reference Range Interpretation [...] = Lipemia) 0 mg/dL 8-11 Basic Metabolic [id number] 05:38:20 Test Item Value Reference Range Interpretation [...] = 0 mg/dL 8-11 Lipemia) Basic Metabolic [id number] 05:38:20 Test Item Value Reference Range Interpretation [...] ag e have not been validated by [facility] MDRD study and should be interpreted [...] code = 0 mg/dL 8-11 Lipemia) POC [id number] 20:28:33 Test Item Value Reference Range Interpretation Comments Glucose POC (test 169 mg/dL 70-115 H If you con vice president corporate communications your code = Glucose POC) patient critically ill, the Merlin-Accu Check Infrom II meter should not be used for Glucose determination. Draw a venous Glucose and send to the main Lab for analysis. POC [id number] 16:39:30 Test Item Value Reference Range Interpretation Comments Glucose POC (test 103 mg/dL 70-115 If you con vice president corporate communications your code = Glucose POC) patient critically ill, the Merlin-Accu Check Infrom II meter should not be used for Glucose determination. Draw a venous Glucose and send to the main Lab for analysis. RPR [id number] 12:08:56 Test Item Value Reference Range Interpretation Comments RPR Qual (test code = RPR Qual) Non-Reactive Non-Reactive Reactive Control (test code = Reactive Reactive Control) Weak Reactive Control (test Weak Reactive code = Weak Reactive Control) Non-Reactive Control (test code Non-Reactive = Non-Reactive Control) Lot # (test code = Lot #) [id number] N Expiration Dt (test code = 03-20-2021 N Expiration Dt) POC [id number] 11:52:31 Test Item Value Reference Range Interpretation Comments Glucose POC (test 250 mg/dL 70-115 H If you con vice president corporate communications your code = Glucose POC) patient critically ill, the Merlin-Accu Check Infrom II meter should not be used for Glucose determination. Draw a venous Glucose and send to the main Lab for analysis. POC [id number] 07:55:29 Test Item Value Reference Range Interpretation Comments Glucose POC (test 205 mg/dL 70-115 H If you con vice president corporate communications your code = Glucose POC) patient critically ill, the Merlin-Accu Check Infrom II meter should not be used for Glucose determination. Draw a venous Glucose and send to the main Lab for analysis. Lipid [id number] 05:46:04 Test Item Value Reference Range Interpretation [...] LDL/HDL Ratio=L DL Calc/HDL Chol Thyroid Stimulating [id number] 05:46:04 Test Item Value Reference Range Interpretation Comments TSH (test code = TSH) 3.274 mcIU/mL 0.550-4.780 Hemoglobin [id number] 05:41:08 Test Item Value Reference Range Interpretation Comments Hemoglobin A1c (test code 7.6 % 4.0-5.8 H Di abetic >=6.5 = Hemoglobin A1c) %Prediabet es 5.7-6.4 %Normal <5.7 % Hepatitis B Surface [id number] 21:19:36 Test Item Value Reference Range Interpretation Comments Hep Bs Ag (test code = Hep Bs Non-Reactive Non-Reactive Ag) Novel Coronavirus SARS-CoV-2, [id number] 11:16:16 Test Item Value Reference Range Interpretation [...] Emergency Use Authorization." Novel Coronavirus (COVID-19), EMANUEL [id number] 11:11:24TNPTest not sent and performed at [facility].Rapid was perfomed in Microbiology.Wrong covid test was ord ered.Urine DOA [id number] 00:17:49 Test Item Value Reference Range Interpretation [...] Propoxyphene Confirmation wi thin 7 days. Alcohol [id number] 00:17:29 Test Item Value Reference Range Interpretation Comments Ethanol Level 9.0 mg/dL N The pharmacolo gical (test code = response to blo od alcohol Ethanol Level) levels may va ry from individual to i ndividual. The fatal omkar ntration has been report ed to be >400 mg/dl. Comprehensive Metabolic [id number] 00:17:28 Test Item Value Reference Range Interpretation [...] = Lipemia) 0 g/dL 1-2 Comprehensive Metabolic [id number] 00:17:28 Test Item Value Reference Range Interpretation [...] = 0 g/dL 1-2 Lipemia) Comprehensive Metabolic [id number] 00:17:28 Test Item Value Reference Range Interpretation [...] g/dL 1-2 Lipemia) Complete Blood Count with [id number] 23:26:28 Test Item Value Reference Range Interpretation [...] code = IPF) 0 % N Automated [id number] 23:26:28 Test Item Value Reference Range Interpretation Comments Neutro Auto (test code = Neutro 67.1 % 36.0-70.0 Auto) Lymph Auto (test code = Lymph Auto) 23.3 % 12.0-44.0 [place] Auto (test code = [place] Auto) 5.8 % 0.0-11.0 Eos, Auto (test code = Eos, Auto) 2.3 % 0.0-7.0 Basophil Auto (test code = Basophil 0.8 % 0.0-2.0 Auto) Neutro Absolute (test code = Neutro 6.0 x10 1.6-7.4 Absolute) Lymph Absolute (test code = Lymph 2.10 x10 .50-4.60 Absolute) [place] Absolute (test code = [place] .52 x10 .00-1.20 Absolute) Eos Absolute (test code = Eos 0.21 x10 0.00-0.74 Absolute) Baso Absolute (test code = Baso 0.07 x10 0.00-0.21 Absolute) IG [id number] 23:26:28 Test Item Value Reference Range Interpretation Comments IG (test code = IG) 0.7 % 0.0-5.0 IG Abs (test code = IG Abs) 0 x10 N HERPES VIRUS ANTIBODY, [id number] 21:46:00 Test Item Value Reference Range Interpretation Comments HERPES VIRUS IGM (BEAKER) Negative SE E ATTACHMENT (test code = 1808) BLOOD [id number] 06:00:00 Test Item Value Reference Range Interpretation Comments CULTURE (BEAKER) (test No growth in 5 days code = 1095) BLOOD [id number] 06:00:00 Test Item Value Reference Range Interpretation Comments CULTURE (BEAKER) (test No growth in 5 days code = 1095) POCT-GLUCOSE [id number] 12:11:00 Test Item Value Reference Range Interpretation Comments POC-GLUCOSE METER 154 mg/dL 70-110 H TESTED AT [place] [address] ([facility]) (test code = [place] 1538) [address] POCT-GLUCOSE [id number] 07:53:00 Test Item Value Reference Range Interpretation Comments POC-GLUCOSE METER 87 mg/dL 70-110 TESTED AT [place] [address] ([facility]) (test code = [place] [facility] [address]) POCT-GLUCOSE [id number] 06:49:00 Test Item Value Reference Range Interpretation Comments POC-GLUCOSE METER 79 mg/dL 70-110 TESTED AT [facility] 67[address] (BEAKER) (test code = [place] [address] 1538) COMPREHENSIVE METABOLIC [id number] 06:15:00 Test Item Value Reference Range Interpretation [...] S NOT APPLICABLE FOR DIALYSIS PATIEN TS. [id number] 06:11:00 Test Item Value Reference Range Interpretation Comments MAGNESIUM (BEAKER) (test code = 2.1 mg/dL 1.6-2.6 627) HEPATIC FUNCTION [id number] 06:11:00 Test Item Value Reference Range Interpretation [...] code = 513 U/L 6-55 H 347) [id number] 05:30:00 Test Item Value Reference Range Interpretation Comments FIBRINOGEN LEVEL (BEAKER) (test 368 mg/dl 225-434 code = 658) [id number] 05:30:00 Test Item Value Reference Range Interpretation Comments PARTIAL THROMBOPLASTIN TIME 42.2 seconds 22.5-36.0 H (BEAKER) (test code = 760) PROTHROMBIN [id number] 05:29:00 Test Item Value Reference Range Interpretation Comments PROTIME (BEAKER) (test code = 14.8 seconds 11.7-14.7 H 759) INR (BEAKER) (test code = 370) 1.2 <=5.9 RECOMMENDED COUMADIN/WARFARIN INR THERAPY RANGESSTANDARD DOSE: 2.0 - 3.0 Includes: PROPHYLAXIS forvenous thrombosis, systemic embolization; TREATMENT for venous thrombosis and/or pulmonary embolus.HIGH RISK: Target INR is 2.5-3.5 for patients with mechanical heart valves.POCT-GLUCOSE [id number] 21:09:00 Test Item Value Reference Range Interpretation Comments POC-GLUCOSE METER 178 mg/dL 70-110 H TESTED AT [facility] [address] ([facility]) (test code = [place] [facility] 1538) [address] POCT-GLUCOSE [id number] 17:18:00 Test Item Value Reference Range Interpretation Comments POC-GLUCOSE METER 178 mg/dL 70-110 H TESTED AT [facility] [address] ([facility]) (test code = [place] [facility] 1538) [address] POCT-GLUCOSE [id number] 13:48:00 Test Item Value Reference Range Interpretation Comments POC-GLUCOSE METER 150 mg/dL 70-110 H TESTED AT [place] [address] ([facility]) (test code = [place] [facility] 1538) [address] FACTOR 5 ACTIVITY (BLEEDING RISK)2017-01-06 10:04:00 Test Item Value Reference Range Interpretation Comments FACTOR V ACTIVITY ([facility]) (test code 90.0 % 60.0-150.0 = 665) Effective 10/24/2013: Reference Range Change-Adult onlyNew: 60.0-150.0 Previous: 50.0-150.0CYTOMEGALOVIRUS ANTIBODY, [id number] 09:42:00 Test Item Value Reference Range Interpretation Comments CYTOMEGALOVIRUS IGM ANTIBODY Negative ([facility]) (test code = 816) HERPES VIRUS ANTIBODY, [id number] 08:59:00 Test Item Value Reference Range Interpretation Comments 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[facility]) (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 G 1807) CYTOMEGALOVIRUS ANTIBODY, [id number] 08:59:00 Test Item Value Reference Range Interpretation Comments CYTOMEGALOVIRUS IGG ANTIBODY Positive ([facility]) (test code = 790) EBV-VCA ANTIBODY, [id number] 08:59:00 Test Item Value Reference Range Interpretation Comments JASE-WALL VCA IGG ([facility]) (test Positive code = 983) EBV-VCA ANTIBODY, [id number] 08:59:00 Test Item Value Reference Range Interpretation Comments JASE-WALL VCA IGM ([facility]) (test Negative code = 984) POCT-GLUCOSE [id number] 07:59:00 Test Item Value Reference Range Interpretation Comments POC-GLUCOSE METER 81 mg/dL 70-110 TESTED AT [place] [address] ([facility]) (test code = [place] [facility] [address]38) COMPREHENSIVE METABOLIC [id number] 06:23:00 Test Item Value Reference Range Interpretation Comments TOTAL PROTEIN 5.3 gm/dL 6.0-8.3 L ([facility]) (test code = 770) ALBUMIN ([facility]) 2.4 g/dL 3.5-5.0 L (test [...] S NOT APPLICABLE FOR DIALYSIS PATIEN TS. [id number] 06:17:00 Test Item Value Reference Range Interpretation Comments MAGNESIUM (BEAKER) (test code = 1.8 mg/dL 1.6-2.6 627) HEPATIC FUNCTION [id number] 06:17:00 Test Item Value Reference Range Interpretation [...] 364 U/L 5-34 H 353) ALT (SGPT) ([facility]) (test code = 779 U/L 6-55 H 347) [id number] 06:00:00 Test Item Value Reference Range Interpretation Comments FIBRINOGEN LEVEL ([facility]) (test 390 mg/dl 225-434 code = 658) [id number] 06:00:00 Test Item Value Reference Range Interpretation Comments PARTIAL THROMBOPLASTIN TIME 40.2 seconds 22.5-36.0 H ([facility]) (test code = 760) PROTHROMBIN [id number] 05:59:00 Test Item Value Reference Range Interpretation Comments PROTIME ([facility]) (test code = 14.6 seconds 11.7-14.7 759) INR ([facility]) (test code = 370) 1.2 <=5.9 RECOMMENDED COUMADIN/WARFARIN INR THERAPY RANGESSTANDARD DOSE: 2.0 - 3.0 Includes: PROPHYLAXIS forvenous thrombosis, systemic embolization; TREATMENT for venous thrombosis and/or pulmonary embolus.HIGH RISK: Target INR is 2.5-3.5 for patients with mechanical heart valves.POCT-GLUCOSE [id number] 21:46:00 Test Item Value Reference Range Interpretation Comments POC-GLUCOSE METER 153 mg/dL 70-110 H TESTED AT [place] [address] ([facility]) (test code = [place] [facility] 1538) [address] POCT-GLUCOSE [id number] 18:47:00 Test Item Value Reference Range Interpretation Comments POC-GLUCOSE METER 181 mg/dL 70-110 H TESTED AT [place] [address] ([facility]) (test code = [place] [facility] 1538) [address] POCT-GLUCOSE [id number] 12:40:00 Test Item Value Reference Range Interpretation Comments POC-GLUCOSE METER 178 mg/dL 70-110 H TESTED AT [place] [address] ([facility]) (test code = [place] [facility] 1538) [address] POCT-GLUCOSE [id number] 07:51:00 Test Item Value Reference Range Interpretation Comments POC-GLUCOSE METER 166 mg/dL 70-110 H TESTED AT [place] [address] ([facility]) (test code = [place] [facility] 1538) [address] COMPREHENSIVE METABOLIC [id number] 03:26:00 Test Item Value Reference Range Interpretation [...] S NOT APPLICABLE FOR DIALYSIS PATIEN TS. [id number] 03:22:00 Test Item Value Reference Range Interpretation Comments MAGNESIUM (BEAKER) (test code = 1.4 mg/dL 1.6-2.6 L 627) HEPATIC FUNCTION [id number] 03:22:00 Test Item Value Reference Range Interpretation [...] code = 1009 U/L 6-55 H 347) [id number] 03:12:00 Test Item Value Reference Range Interpretation Comments AMMONIA (BEAKER) (test code = 348) 29 mol/L 18-72 [id number] 03:10:00 Test Item Value Reference Range Interpretation Comments PARTIAL THROMBOPLASTIN TIME 42.3 seconds 22.5-36.0 H (BEAKER) (test code = 760) PROTHROMBIN [id number] 03:09:00 Test Item Value Reference Range Interpretation Comments PROTIME (BEAKER) (test code = 16.4 seconds 11.7-14.7 H 759) INR (BEAKER) (test code = 370) 1.3 <=5.9 RECOMMENDED COUMADIN/WARFARIN INR THERAPY RANGESSTANDARD DOSE: 2.0 - 3.0 Includes: PROPHYLAXIS forvenous thrombosis, systemic embolization; TREATMENT for venous thrombosis and/or pulmonary embolus.HIGH RISK: Target INR is 2.5-3.5 for patients with mechanical heart valves.[id number] 03:09:00 Test Item Value Reference Range Interpretation Comments FIBRINOGEN LEVEL (BEAKER) (test 413 mg/dl 225-434 code = 658) CBC W/PLT COUNT & AUTO [id number] 03:09:00 Test Item Value Reference Range Interpretation [...] L 0.00-0.20 (test code = 417) 0.00POCT-GLUCOSE [id number] 22:33:00 Test Item Value Reference Range Interpretation Comments POC-GLUCOSE METER 230 mg/dL 70-110 H TESTED AT [facility] [address] ([facility]) (test code = [place] 1538) [address] POCT-GLUCOSE [id number] 18:17:00 Test Item Value Reference Range Interpretation Comments POC-GLUCOSE METER 222 mg/dL 70-110 H TESTED AT [facility] 67[address] (BEAKER) (test code = [place] 1538) [address] COMPREHENSIVE METABOLIC [id number] 16:59:00 Test Item Value Reference Range Interpretation [...] PATIEN TS. PERIPHERAL BLOOD SMEAR - PATHOLOGIST [id number] 15:30:00 Test Item Value Reference Range Interpretation Comments RBC MORPHOLOGY Polychromasia (BEAKER) (test code = 2846) RBC MORPHOLOGY Anisocytosis (BEAKER) (test code = 15333) PERIPHERAL SMR REVIEW Cell counts confirmed (BEAKER) (test code = 0094) [id number] Josefina Lara M.D. (BEAKER) (test code = (electronic signature) 4103) PROTHROMBIN [id number] 15:12:00 Test Item Value Reference Range Interpretation Comments PROTIME (Kinetic) (test code = 16.6 seconds 11.7-14.7 H 759) INR (Kinetic) (test code = 370) 1.4 <=5.9 RECOMMENDED COUMADIN/WARFARIN INR THERAPY RANGESSTANDARD DOSE: 2.0 - 3.0 Includes: PROPHYLAXIS forvenous thrombosis, systemic embolization; TREATMENT for venous thrombosis and/or pulmonary embolus.HIGH RISK: Target INR is 2.5-3.5 for patients with mechanical heart valves.ANTI-NUCLEAR ANTIBODY (IVETTE)2017-01-04 14:32:00 Test Item Value Reference Range Interpretation Comments ANTI-NUCLEAR ANTIBODY (IVETTE) (Kinetic) Negative Negative (test code = 418) POCT-GLUCOSE [id number] 12:47:00 Test Item Value Reference Range Interpretation Comments POC-GLUCOSE METER 212 mg/dL 70-110 H TESTED AT [facility] [address] (Kinetic) (test code = [place] 1538) [address] [id number] 12:34:00 Test Item Value Reference Range Interpretation Comments RPR SCREEN (Kinetic) (test code = Nonreactive Nonreactive 420) CLOSTRIDIUM DIFFICILE TOXIN [id number] 10:12:00 Test Item Value Reference Range Interpretation Comments CLOSTRIDIUM DIFFICILE TOXIN, PCR Not Detected Not Detected (Kinetic) (test code = 1525) This qualitative real-time [...] Reference Range Change-Adult onlyNew: 60.0-150.0 Previous: 50.0-150.0POCT-GLUCOSE [id number] 06:40:00 Test Item Value Reference Range Interpretation Comments POC-GLUCOSE METER 167 mg/dL 70-110 H TESTED AT [facility] [address] (BEAKER) (test code = [place] 1538) [address] COMPREHENSIVE METABOLIC [id number] 04:08:00 Test Item Value Reference Range Interpretation [...] ESTIM ATED GFR. Specimen slightly ictericHEPATIC FUNCTION [id number] 04:06:00 Test Item Value Reference Range Interpretation [...] 1091 U/L 6-55 H 347) Specimen slightly [id number] 04:01:00 Test Item Value Reference Range Interpretation Comments FIBRINOGEN LEVEL (BEAKER) (test 379 mg/dl 225-434 code = 658) [id number] 04:01:00 Test Item Value Reference Range Interpretation Comments PARTIAL THROMBOPLASTIN TIME 40.7 seconds 22.5-36.0 H (BEAKER) (test code = 760) PROTHROMBIN [id number] 04:00:00 Test Item Value Reference Range Interpretation [...] L 0.00-0.20 (test code = 417) 0.00POCT-GLUCOSE [id number] 00:19:00 Test Item Value Reference Range Interpretation Comments POC-GLUCOSE METER 159 mg/dL 70-110 H TESTED AT [facility] [address] (BEAKER) (test code = [place] 1538) [address] POCT-GLUCOSE [id number] 18:56:00 Test Item Value Reference Range Interpretation Comments POC-GLUCOSE METER 192 mg/dL 70-110 H TESTED AT [facility] [address] (BEAKER) (test code = [place] 1538) [address] COMPREHENSIVE METABOLIC [id number] 16:55:00 Test Item Value Reference Range Interpretation [...] CALCULATE ESTIM ATED GFR. Specimen slightly ictericPROTHROMBIN [id number] 16:37:00 Test Item Value Reference Range Interpretation Comments PROTIME (BEAKER) (test code = 20.9 seconds 11.7-14.7 H 759) INR (BEAKER) (test code = 370) 1.8 <=5.9 RECOMMENDED COUMADIN/WARFARIN INR THERAPY RANGESSTANDARD DOSE: 2.0 - 3.0 Includes: PROPHYLAXIS forvenous thrombosis, systemic embolization; TREATMENT for venous thrombosis and/or pulmonary embolus.HIGH RISK: Target INR is 2.5-3.5 for patients with mechanical heart valves.HEPATITIS B SURFACE [id number] 14:05:00 Test Item Value Reference Range Interpretation Comments HEPATITIS B SURFACE ANTIBODY < mIU/mL <8.0 (BEAKER) (test code = 647) HEPATITIS B CORE ANTIBODY, [id number] 13:43:00 Test Item Value Reference Range Interpretation Comments HEPATITIS B CORE TOTAL ANTIBODY Nonreactive Nonreactive (BEAKER) (test code = 497) BLOOD GAS, [id number] 13:35:00 Test Item Value Reference Range Interpretation [...] code = 1819) 28.0 % URINALYSIS W/ [id number] 13:16:00 Test Item Value Reference Range Interpretation [...] 1584) SOURCE(BEAKER) (test code = Urine, [place] 5318) VITAMIN D, [id number] 13:14:00 Test Item Value Reference Range Interpretation Comments VITAMIN D 25-OH (BEAKER) (test code = < ng/mL 13.0-47.8 L 2764) ALPHA FETOPROTEIN (AFP), TUMOR [id number] 13:06:00 Test Item Value Reference Range Interpretation Comments ALPHA-FETOPROTEIN (BEAKER) (test code < ng/mL <10.0 = 1094) Effective 05/08/2014: Reference Range ChangeNew: <10.0 Previous: 0.0-8.0 HEMOGLOBIN [id number] 13:05:00 Test Item Value Reference Range Interpretation Comments HEMOGLOBIN A1C (BEAKER) (test code = 7.6 % 4.3-6.1 H 368) CARCINOEMBRYONIC ANTIGEN (CEA)2017-01-03 12:59:00 Test Item Value Reference Range Interpretation Comments CARCINOEMBRYONIC ANTIGEN (BEAKER) 2.0 ng/mL 0.0-5.0 (test code = 685) [id number] 12:59:00 Test Item Value Reference Range Interpretation Comments FERRITIN (BEAKER) (test code = 1841 ng/mL 5-275 H 361) Effective 05/08/2014: Reference Range ChangeNew: Male 5-275 Previous: Male 22-322 Female 5-275 Female [id number] 12:58:00 Test Item Value Reference Range Interpretation Comments T4 TOTAL (BEAKER) (test code = 895) 4.5 ug/dL 4.9-11.7 L [id number] 12:58:00 Test Item Value Reference Range Interpretation Comments THYROID STIMULATING HORMONE 1.79 uIU/mL 0.35-4.94 (BEAKER) (test code = 772) [id number] 12:58:00 Test Item Value Reference Range Interpretation Comments T3 TOTAL (BEAKER) (test code = 656) 34 ng/dL 48-159 L Effective 05/08/2014: Reference Range ChangeNew: 48-159 Previous: 60-181 CALCIUM, [id number] 12:47:00 Test Item Value Reference Range Interpretation Comments CALCIUM IONIZED (BEAKER) (test 1.05 mmol/L 1.12-1.27 L code = 698) PH, BLOOD (BEAKER) (test code = 7.43 1810) [id number] 12:42:00 Test Item Value Reference Range Interpretation [...] % 20-55 (test code = 2590) URIC [id number] 12:40:00 Test Item Value Reference Range Interpretation Comments URIC ACID (BEAKER) (test code = 16.0 mg/dL 2.6-7.2 H 773) Specimen slightly ictericLIPID [id number] 12:40:00 Test Item Value Reference Range Interpretation Comments TRIGLYCERIDES (BEAKER) (test code = 134 mg/dL 540) CHOLESTEROL (BEAKER) (test code = 120 mg/dL 631) HDL CHOLESTEROL (AKER) (test code 7 mg/dL = 976) LDL CHOLESTEROL CALCULATED ([facility]) 86 mg/dL (test code = 633) Triglyceride Reference Range: Low Risk <150 Borderline 150-199 High Risk 200-499 Very High Risk >=500Cholesterol Reference Range: Low Risk <200 Borderline 200-239 High Risk >240HDL Cholesterol Reference Range: Low Risk >=60 High Risk <40LDL Cholesterol Reference Range: Optimal <100 Near Optimal 100-129 Borderline 130-159 High 160-189 Very High >=190 Specimen slightly ictericBILIRUBIN, [id number] 12:40:00 Test Item Value Reference Range Interpretation Comments BILIRUBIN DIRECT (Kinetic) (test 2.4 mg/dL 0.1-0.5 H code = 706) GAMMA GLUTAMYL TRANSFERASE (GGT)2017-01-03 12:40:00 Test Item Value Reference Range Interpretation Comments GAMMA GLUTAMYL TRANSFERASE (Kinetic) 53 U/L 9-64 (test code = 364) Specimen slightly [id number] 12:39:00 Test Item Value Reference Range Interpretation Comments ETHANOL (Kinetic) (test code = 400) < mg/dL <=10 SCREEN, [id number] 12:36:00 Test Item Value Reference Range Interpretation Comments TEST URINE (Kinetic) (test Negative code = 583) POCT-GLUCOSE [id number] 12:34:00 Test Item Value Reference Range Interpretation Comments POC-GLUCOSE METER 189 mg/dL 70-110 H TESTED AT [facility] 6720 ([facility]) (test code = [facility] 1538) [address] HIV-1 ANTIGEN WITH HIV-1/2 [id number] 11:58:00 Test Item Value Reference Range Interpretation Comments HIV-1 ANTIGEN WITH HIV 1\\T\\2 Nonreactive Nonreactive ANTIBODY (2) (Kinetic) (test code = 2586) TROPONIN [id number] 09:44:00 Test Item Value Reference Range Interpretation Comments TROPONIN I (Kinetic) (test code = 0.34 ng/mL 0.00-0.03 397) [...] Previous: 0.0-4.9CK-MB Reference Range:<6.7 Normal6.7-10.0 Borderline>10.0 AbnormalACETAMINOPHEN [id number] 08:31:00 Test Item Value Reference Range Interpretation Comments ACETAMINOPHEN LEVEL (BEAKER) (test < ug/mL 10.0-30.0 L code = 344) TROPONIN [id number] 05:53:00 Test Item Value Reference Range Interpretation [...] acute neurological disease, and persistent tachyarrhythmia.BASIC METABOLIC [id number] 05:53:00 Test Item Value Reference Range Interpretation [...] TO CALCULA TE ESTIMATED GFR. Specimen slightly [id number] 05:52:00 Test Item Value Reference Range Interpretation Comments PHOSPHORUS (BEAKER) (test code = 5.7 mg/dL 2.3-4.7 H 604) HEPATIC FUNCTION [id number] 05:52:00 Test Item Value Reference Range Interpretation [...] Specimen slightly ictericCREATINE KINASE (CK), TOTAL AND [id number] 05:52:00 Test Item Value Reference Range Interpretation Comments CREATINE KINASE TOTAL (BEAKER) 341 U/L 29-200 H (test code = 380) CREATINE KINASE-MB (BEAKER) (test 5.4 ng/mL 0.0-6.6 code = 750) CREATINE KINASE-MB INDEX (BEAKER) 1.6 % (test code = 395) Effective 05/08/2014: CK-MB Reference Range ChangeNew: 0.0-6.6 Previous: 0.0-4.9CK-MB Reference Range:<6.7 Normal6.7-10.0 Borderline>10.0 AbnormalCBC W/PLT COUNT & AUTO [id number] 05:48:00 Test Item Value Reference Range Interpretation [...] K/ L 0.00-0.20 (test code = 417) 0.48VIHADEANTZ9547-88-00 05:09:00 Test Item Value Reference Range Interpretation Comments FIBRINOGEN LEVEL (BEAKER) (test 427 mg/dl 225-434 code = 658) [id number] 05:09:00 Test Item Value Reference Range Interpretation Comments PARTIAL THROMBOPLASTIN TIME 36.2 seconds 22.5-36.0 H (BEAKER) (test code = 760) PROTHROMBIN TIME/[id number] 05:08:00 Test Item Value Reference Range Interpretation Comments PROTIME (BEAKER) (test code = 22.8 seconds 11.7-14.7 H 759) INR (BEAKER) (test code = 370) 2.0 <=5.9 RECOMMENDED COUMADIN/WARFARIN INR THERAPY RANGESSTANDARD DOSE: 2.0 - 3.0 Includes: PROPHYLAXIS forvenous thrombosis, systemic embolization; TREATMENT for venous thrombosis and/or pulmonary embolus.HIGH RISK: Target INR is 2.5-3.5 for patients with mechanical heart valves.HEPATITIS PANEL, [id number] 03:40:00 Test Item Value Reference Range Interpretation Comments HEPATITIS A IGM ANTIBODY (BEAKER) Nonreactive Nonreactive (test code = 498) HEPATITIS B CORE IGM ANTIBODY Nonreactive Nonreactive (BEAKER) (test code = 645) HEPATITIS C ANTIBODY (BEAKER) Nonreactive Nonreactive (test code = 367) HEPATITIS B SURFACE ANTIGEN (2) Nonreactive Nonreactive (BEAKER) (test code = 2585) CREATININE, RANDOM [id number] 03:18:00 Test Item Value Reference Range Interpretation Comments CREATININE URINE (BEAKER) (test 118.7 mg/dL code = 375) Reference Range: No NormalsSODIUM, RANDOM [id number] 03:18:00 Test Item Value Reference Range Interpretation Comments SODIUM URINE (BEAKER) (test code = 60 meq/L 243) Reference Range: No NormalsUREA NITROGEN, RANDOM [id number] 03:18:00 Test Item Value Reference Range Interpretation Comments UREA NITROGEN URINE (BEAKER) (test 303 mg/dL code = 538) Reference Range: No [id number] 03:07:00 Test Item Value Reference Range Interpretation Comments AMMONIA (BEAKER) (test code = 348) 48 mol/L 18-72 D-[id number] 02:57:00 Test Item Value Reference Range Interpretation [...] within 95-100% range. URINALYSIS W/ REFLEX URINE [id number] 02:53:00 Test Item Value Reference Range Interpretation [...] = 514) SOURCE(BEAKER) (test code = 2795) [id number] 02:49:00 Test Item Value Reference Range Interpretation Comments PARTIAL THROMBOPLASTIN TIME 39.4 seconds 22.5-36.0 H (BEAKER) (test code = 760) PROTHROMBIN TIME/[id number] 02:48:00 Test Item Value Reference Range Interpretation Comments PROTIME (BEAKER) (test code = 22.0 seconds 11.7-14.7 H 759) INR (BEAKER) (test code = 370) 1.9 <=5.9 RECOMMENDED COUMADIN/WARFARIN INR THERAPY RANGESSTANDARD DOSE: 2.0 - 3.0 Includes: PROPHYLAXIS forvenous thrombosis, systemic embolization; TREATMENT for venous thrombosis and/or pulmonary embolus.HIGH RISK: Target INR is 2.5-3.5 for patients with mechanical heart valves.[id number] 02:48:00 Test Item Value Reference Range Interpretation Comments FIBRINOGEN LEVEL (BEAKER) (test 421 mg/dl 225-434 code = 658) BLOOD GAS, [id number] 02:43:00 Test Item Value Reference Range Interpretation [...] 21.0 % CBC W/PLT COUNT & AUTO [id number] 02:43:00 Test Item Value Reference Range Interpretation [...] code = 417) 0.00LACTIC ACID, VENOUS, WHOLE [id number] 02:35:00 Test Item Value Reference Range Interpretation Comments LACTATE BLOOD VENOUS (2) (BEAKER) 0.8 mmol/L 0.5-2.2 (test code = 2872) Effective 10/23/2015: Units/Reference Range ChangeNew: 0.5-2.2 mmol/L Previous: 5-20 mg/dLSpecimen slightly [id number] 11:32:00 Test Item Value Reference Range Interpretation Comments AGAP (test code = AGAP) 14.6 10.0-20.0 [id number] 11:32:00 Test Item Value Reference Range Interpretation Comments eGFR (test code = eGFR) 33 [facility][id number] 11:32:00 Test Item Value Reference Range Interpretation Comments Calcium Lvl (test code = Calcium Lvl) 8.3 8.5-10.5 [id number] 11:32:00 Test Item Value Reference Range Interpretation Comments Glucose Lvl (test code = Glucose Lvl) 81 70-99 [facility]UaihcjpMGBHEDDDWYML0019-28-17 11:32:00 Test Item Value Reference Range Interpretation Comments Creatinine Lvl (test code = Creatinine 1.95 0.50-1.40 Lvl) [facility] HospitalYcnicgjJPSTCEDQNZFQ9790-04-38 11:32:00 Test Item Value Reference Range Interpretation Comments BUN (test code = BUN) 55 7-22 [facility]HbhidktRWTKSWFHAIJO0435-71-33 11:32:00 Test Item Value Reference Range Interpretation Comments CO2 (test code = CO2) 19 24-32 [facility] HospitalZnhdpjvMPTWBQGYAEPO1481-71-29 11:32:00 Test Item Value Reference Range Interpretation Comments Chloride Lvl (test code = Chloride Lvl) 110 95-109 [facility] HospitalLqjofbwDWYIMMOISKGY9456-67-20 11:32:00 Test Item Value Reference Range Interpretation Comments Sodium Lvl (test code = Sodium Lvl) 139 135-145 [facility] HospitalTjdewhhWXIBJRHVHFYI1289-62-65 11:32:00 Test Item Value Reference Range Interpretation Comments Potassium Lvl (test code = Potassium 4.6 3.5-5.1 Lvl) [facility] ArlingtonUxehnowITZTOUIWEA3478-31-36 11:32:00 Test Item Value Reference Range Interpretation Comments Lymphocytes (test code = Lymphocytes) 30.4 20.0-40.0 [facility] ArlingtonHwkretrJGYYXCGPZQ4523-77-86 11:32:00 Test Item Value Reference Range Interpretation Comments Eosinophils (test code = 4.5 See_Comment [A utomated message] The Eosinophils) system which ge nerated this result tra nsmitted reference range : <=4.0. The reference r leo was not used to int erpret this result as normal/abnormal . [facility] ArlingtonXohcmdcXWWAPZMAXS9541-35-31 11:32:00 Test Item Value Reference Range Interpretation Comments Monocytes (test code = Monocytes) 13.7 2.0-12.0 [facility] ArlingtonDnehmgqXZCIWBAGQX2366-74-54 11:32:00 Test Item Value Reference Range Interpretation Comments Segs-Bands # (test code = Segs-Bands #) 2.6 1.5-8.1 [facility] ArlingtonQospakdMKHKUUULCH7699-90-87 11:32:00 Test Item Value Reference Range Interpretation Comments Basophils (test code = 0.7 See_Comment [Aut omated message] The Basophils) system which ge nerated this result tra nsmitted reference range : <=1.0. The reference r leo was not used to int erpret this result as normal/abnormal . [facility] ArlingtonRcxmrtoYXMUDOAMBN7781-75-65 11:32:00 Test Item Value Reference Range Interpretation Comments Monocytes # (test code 0.7 See_Comment [Aut omated message] The = Monocytes #) system which generated this result tra nsmitted reference range : <=0.8. The reference r leo was not used to int erpret this result as normal/abnormal . [facility] ArlingtonZktmgqlLSWBVVYPQU8764-08-77 11:32:00 Test Item Value Reference Range Interpretation Comments Lymphocytes # (test code = Lymphocytes 1.6 1.0-5.5 #) [facility] ArlingtonXurheduBLUBJTMSSN6715-22-89 11:32:00 Test Item Value Reference Range Interpretation Comments Eosinophils # (test code 0.2 See_Comment [A utomated message] The = Eosinophils #) system whic h generated this result tra nsmitted reference range : <=0.5. The reference r leo was not used to int erpret this result as normal/abnormal . [facility] ArlingtonDbdijhhFRXLCWJCHI0825-11-42 11:32:00 Test Item Value Reference Range Interpretation Comments Segs (test code = Segs) 50.7 45.0-75.0 [facility] ArlingtonGsgjjreIQWGPSBIVR2620-94-00 11:32:00 Test Item Value Reference Range Interpretation [...] iron deficiency anemia, and renal disease. CPT: 11810 [facility] ArlingtonQmvehtpOPSJYAQSVL6037-31-72 11:32:00 Test Item Value Reference Range Interpretation Comments Hct (test code = Hct) 28.1 36.0-48.0 [facility] ArlingtonPpcqnmmVZTTLNEXSE3304-80-13 11:32:00 Test Item Value Reference Range Interpretation Comments RBC (test code = RBC) 3.39 4.20-5.40 [facility] ArlingtonAqkmclzVTPYEYYYOH2016-22-26 11:32:00 Test Item Value Reference Range Interpretation Comments Hgb (test code = Hgb) 8.9 12.0-16.0 [facility] ArlingtonIbsmtqaRWFYORVEVN6800-86-58 11:32:00 Test Item Value Reference Range Interpretation Comments WBC (test code = WBC) 5.1 3.7-10.4 [facility] ArlingtonDaqojebJIPKCCNTGR2347-83-06 11:32:00 Test Item Value Reference Range Interpretation Comments MPV (test code = MPV) 11.3 7.4-10.4 [facility] ArlingtonZrjacitHIUDBGAHTY6244-35-73 11:32:00 Test Item Value Reference Range Interpretation Comments Platelet (test code = Platelet) 118 133-450 [facility] ArlingtonQvrtgdwYRSNPNZSYB0108-60-84 11:32:00 Test Item Value Reference Range Interpretation Comments MCHC (test code = MCHC) 31.8 32.0-36.0 [facility] ArlingtonKmibeiyJWGQGSBSDK0749-76-08 11:32:00 Test Item Value Reference Range Interpretation Comments RDW (test code = RDW) 18.0 11.5-14.5 [facility] ArlingtonKggyynuEXLYQYKRSI7322-30-94 11:32:00 Test Item Value Reference Range Interpretation Comments MCV (test code = MCV) 83.0 80.0-98.0 [facility] ArlingtonLjfhwnnNEJFHCMDNY0403-04-11 11:32:00 Test Item Value Reference Range Interpretation Comments MCH (test code = MCH) 26.4 pg 27.0-31.0 [facility]YrhrzmgWXNSSJRDJS0597-38-45 11:32:00 Test Item Value Reference Range Interpretation Comments C3 Complement (test code = C3 137 88-201 Complement) [facility] ArlingtonWqjmqxtOHOKBZNSMW0488-43-79 11:32:00 Test Item Value Reference Range Interpretation Comments HIV. (test code = Negative *NA*(07/30/16 HIV.) 5:32 AM) [facility] ArlingtonGfrlfmpBSHYJDTPST6528-99-67 11:05:00 Test Item Value Reference Range Interpretation [...] iron deficiency anemia, and renal disease. CPT: 69719 [facility] ArlingtonBxzkiswKTIFYPZCKZ9519-56-85 11:05:00 Test Item Value Reference Range Interpretation Comments HIV. (test code = Negative *NA*(07/29/16 HIV.) 5:05 AM) [facility] ArlingtonWegzxwlAYSMKPGKEH2702-85-15 11:05:00 Test Item Value Reference Range Interpretation Comments C3 Complement (test code = C3 92 88-201 Complement) [facility]2017-02-07 15:50:00 Test Item Value Reference Range Interpretation Comments eGFR (test code = eGFR) 25 [facility]2017-02-07 15:50:00 Test Item Value Reference Range Interpretation Comments BUN (test code = BUN) 55 7-22 [facility]2017-02-07 15:50:00 Test Item Value Reference Range Interpretation Comments CO2 (test code = CO2) 23 24-32 [facility]2017-02-07 15:50:00 Test Item Value Reference Range Interpretation Comments Chloride Lvl (test code = Chloride Lvl) 109 95-109 [facility]2017-02-07 15:50:00 Test Item Value Reference Range Interpretation Comments Glucose Lvl (test code = Glucose Lvl) 101 70-99 [facility]2017-02-07 15:50:00 Test Item Value Reference Range Interpretation Comments Potassium Lvl (test code = Potassium 4.0 3.5-5.1 Lvl) [facility]2017-02-07 15:50:00 Test Item Value Reference Range Interpretation Comments Sodium Lvl (test code = Sodium Lvl) 141 135-145 [facility]2017-02-07 15:50:00 Test Item Value Reference Range Interpretation Comments AGAP (test code = AGAP) 13.0 10.0-20.0 [facility]2017-02-07 15:50:00 Test Item Value Reference Range Interpretation Comments Calcium Lvl (test code = Calcium Lvl) 7.7 8.5-10.5 [facility]2017-02-07 15:50:00 Test Item Value Reference Range Interpretation Comments Creatinine Lvl (test code = Creatinine 2.49 0.50-1.40 Lvl) [facility] ArlingtonSxfjehkOVKOELMELJ7993-18-45 15:50:00 Test Item Value Reference Range Interpretation Comments PT (test code = PT) 14.8 s 12.0-14.7 [facility] ArlingtonLzqwtsmGFCOFLSDKI6520-99-34 15:50:00 Test Item Value Reference Range Interpretation Comments PTT (test code = PTT) 40.8 s 22.9-35.8 [facility] ArlingtonCixkiakVXQSAJECKL4770-87-96 15:50:00 Test Item Value Reference Range Interpretation Comments INR (test code = INR) 1.14 0.85-1.17 [facility]FzupwyzMXKZIQAGAS2323-42-20 15:50:00 Test Item Value Reference Range Interpretation Comments C3 Complement (test code = C3 94 88-201 Complement) [facility] ArlingtonXyastnlHVNXBHCKPU1954-70-73 10:35:00 Test Item Value Reference Range Interpretation Comments Lymphocytes # (test code = Lymphocytes 1.7 1.0-5.5 #) [facility] ArlingtonZhqgjtyOHPZMJJMKN0341-91-40 10:35:00 Test Item Value Reference Range Interpretation Comments Segs-Bands # (test code = Segs-Bands #) 2.7 1.5-8.1 [facility] ArlingtonRlpijdwGKSPVOZHCS9751-91-30 10:35:00 Test Item Value Reference Range Interpretation Comments Eosinophils # (test code 0.1 See_Comment [A utomated message] The = Eosinophils #) system whic h generated this result tra nsmitted reference range : <=0.5. The reference r leo was not used to int erpret this result as normal/abnormal . [facility] ArlingtonZuczjljFMWRXPIOJF3433-74-06 10:35:00 Test Item Value Reference Range Interpretation Comments Monocytes # (test code 0.7 See_Comment [Aut omated message] The = Monocytes #) system which generated this result tra nsmitted reference range : <=0.8. The reference r leo was not used to int erpret this result as normal/abnormal . [facility] ArlingtonHtzvbptJSFSYIFYKF8610-70-18 10:35:00 Test Item Value Reference Range Interpretation Comments Segs (test code = Segs) 51.3 45.0-75.0 [facility] ArlingtonSlvgposLLMSQHVAIX3321-40-60 10:35:00 Test Item Value Reference Range Interpretation Comments Lymphocytes (test code = Lymphocytes) 31.6 20.0-40.0 [facility] ArlingtonUylfjmpNMBOELOMUK4106-58-53 10:35:00 Test Item Value Reference Range Interpretation Comments Monocytes (test code = Monocytes) 14.1 2.0-12.0 [facility] ArlingtonVxgsqieFRUZNFMWSC8272-09-91 10:35:00 Test Item Value Reference Range Interpretation Comments Eosinophils (test code = 2.6 See_Comment [A utomated message] The Eosinophils) system which ge nerated this result tra nsmitted reference range : <=4.0. The reference r leo was not used to int erpret this result as normal/abnormal . [facility] ArlingtonPonfjieITKOLMYCDB2192-15-11 10:35:00 Test Item Value Reference Range Interpretation Comments Basophils (test code = 0.4 See_Comment [Aut omated message] The Basophils) system which ge nerated this result tra nsmitted reference range : <=1.0. The reference r leo was not used to int erpret this result as normal/abnormal . [facility] ArlingtonMsfqeehZDYFUXKLTX8549-07-10 10:35:00 Test Item Value Reference Range Interpretation Comments PB Smear Path Peripheral blood smear shows (test code = PB hypochromic normocytic Smear Path) anemia with anisopoikilocytsosis, no increase in schistocytes, slight polychromasia, a few estella cells, moderate thrombocytopenia. Impression: (1) no evidence of microangiopathic hemolysis, (2) RBC morphology is suggestive of anemia of chronic disease or iron deficiency anemia, and renal disease. CPT: 65739 [facility] ArlingtonRvermueXJEEYGEEML1995-03-90 10:35:00 Test Item Value Reference Range Interpretation Comments Hct (test code = Hct) 29.3 36.0-48.0 [facility] ArlingtonGyaboecTWCCXSQPWQ9804-08-51 10:35:00 Test Item Value Reference Range Interpretation Comments Hgb (test code = Hgb) 9.2 12.0-16.0 [facility] ArlingtonTewkzdxBTLORKXLKF9041-04-25 10:35:00 Test Item Value Reference Range Interpretation Comments RBC (test code = RBC) 3.54 4.20-5.40 [facility] ArlingtonHcynzpoJLIVIHYFAL7760-76-64 10:35:00 Test Item Value Reference Range Interpretation Comments WBC (test code = WBC) 5.3 3.7-10.4 [facility] ArlingtonFlkojprWEEIZLPYZQ0030-07-84 10:35:00 Test Item Value Reference Range Interpretation Comments Platelet (test code = Platelet) 87 133-450 [facility] ArlingtonTczoktaVINYPPUPBL3987-36-78 10:35:00 Test Item Value Reference Range Interpretation Comments MCHC (test code = MCHC) 31.4 32.0-36.0 [facility] ArlingtonZlieczgAUYBRXFFIC4893-71-19 10:35:00 Test Item Value Reference Range Interpretation Comments RDW (test code = RDW) 17.9 11.5-14.5 [facility] ArlingtonFkbhmfyTRLWEERNKB6470-06-39 10:35:00 Test Item Value Reference Range Interpretation Comments MPV (test code = MPV) 10.9 7.4-10.4 [facility] ArlingtonCmjvssgBVTJNWPHTX2772-31-85 10:35:00 Test Item Value Reference Range Interpretation Comments MCH (test code = MCH) 26.0 pg 27.0-31.0 [facility] ArlingtonCiyutbqIPQJBUXGFM5456-02-67 10:35:00 Test Item Value Reference Range Interpretation Comments MCV (test code = MCV) 82.8 80.0-98.0 [facility] ArlingtonWrliwqzKQBDFUZCCA3445-67-24 10:35:00 Test Item Value Reference Range Interpretation Comments HIV. (test code = Negative *NA*(07/28/16 HIV.) 4:35 AM) [facility]ARD[facility] SBUDPYM4841-43-20 10:22:00 Test Item Value Reference Range Interpretation Comments Total CK (test code = Total CK) 190 12-191 [facility]2017-02-06 10:22:00 Test Item Value Reference Range Interpretation Comments Calcium Lvl (test code = Calcium Lvl) 7.8 8.5-10.5 [facility]2017-02-06 10:22:00 Test Item Value Reference Range Interpretation Comments CO2 (test code = CO2) 21 24-32 [facility]2017-02-06 10:22:00 Test Item Value Reference Range Interpretation Comments Sodium Lvl (test code = Sodium Lvl) 140 135-145 [facility]2017-02-06 10:22:00 Test Item Value Reference Range Interpretation Comments Potassium Lvl (test code = Potassium 3.8 3.5-5.1 Lvl) [facility]2017-02-06 10:22:00 Test Item Value Reference Range Interpretation Comments Chloride Lvl (test code = Chloride Lvl) 106 95-109 [facility]2017-02-06 10:22:00 Test Item Value Reference Range Interpretation Comments Bili Total (test code = Bili Total) 0.4 0.2-1.3 [facility]2017-02-06 10:22:00 Test Item Value Reference Range Interpretation Comments Alk Phos (test code = Alk Phos) 74 39-136 [facility]2017-02-06 10:22:00 Test Item Value Reference Range Interpretation Comments eGFR (test code = eGFR) 19 [facility]2017-02-06 10:22:00 Test Item Value Reference Range Interpretation Comments Total Protein (test code = Total 5.2 6.4-8.4 Protein) [facility]2017-02-06 10:22:00 Test Item Value Reference Range Interpretation Comments ALT (test code = ALT) 822 See_Comment [Auto mated message] The system which ge nerated this result transmit rohit reference range : <=65. The reference range was not used to interpr et this result as reji l/abnormal. [facility]2017-02-06 10:22:00 Test Item Value Reference Range Interpretation Comments AST (test code = AST) 205 See_Comment [Auto mated message] The system which ge nerated this result transmit rohit reference range : <=37. The reference range was not used to interpr et this result as reji l/abnormal. [facility]2017-02-06 10:22:00 Test Item Value Reference Range Interpretation Comments Albumin Lvl (test code = Albumin Lvl) 1.8 3.5-5.0 [facility]2017-02-06 10:22:00 Test Item Value Reference Range Interpretation Comments BUN (test code = BUN) 54 7-22 [facility]2017-02-06 10:22:00 Test Item Value Reference Range Interpretation Comments Glucose Lvl (test code = Glucose Lvl) 143 70-99 [facility]2017-02-06 10:22:00 Test Item Value Reference Range Interpretation Comments Creatinine Lvl (test code = Creatinine 3.11 0.50-1.40 Lvl) [facility]2017-02-06 10:22:00 Test Item Value Reference Range Interpretation Comments B/C Ratio (test code = B/C Ratio) 17 6-25 [facility]2017-02-06 10:22:00 Test Item Value Reference Range Interpretation Comments AGAP (test code = AGAP) 16.8 10.0-20.0 [facility]2017-02-06 10:22:00 Test Item Value Reference Range Interpretation Comments Globulin (test code = Globulin) 3.4 2.7-4.2 [facility]2017-02-06 10:22:00 Test Item Value Reference Range Interpretation Comments A/G Ratio (test code = A/G Ratio) 0.5 0.7-1.6 [facility]2017-02-06 10:22:00 Test Item Value Reference Range Interpretation Comments Magnesium Lvl (test code = Magnesium 2.0 1.8-2.4 Lvl) [facility]2017-02-06 10:22:00 Test Item Value Reference Range Interpretation Comments Phosphorus (test code = Phosphorus) 3.7 2.5-4.5 [facility] ArlingtonLrboiipJPLQOFLDQI4970-45-91 10:22:00 Test Item Value Reference Range Interpretation Comments RDW (test code = RDW) 17.7 11.5-14.5 [facility] ArlingtonMfcvcoxXFSABMMQFE2656-95-08 10:22:00 Test Item Value Reference Range Interpretation Comments MCHC (test code = MCHC) 32.9 32.0-36.0 [facility] ArlingtonLcsckviPUDHURGBPQ1082-35-37 10:22:00 Test Item Value Reference Range Interpretation Comments Hct (test code = Hct) 25.4 36.0-48.0 [facility] ArlingtonZplzdvzOWPCBHVNKQ8930-93-36 10:22:00 Test Item Value Reference Range Interpretation Comments MCH (test code = MCH) 26.4 pg 27.0-31.0 [facility] ArlingtonWizwxvdRDXAKMBNZS7421-95-78 10:22:00 Test Item Value Reference Range Interpretation Comments MCV (test code = MCV) 80.3 80.0-98.0 [facility] ArlingtonPtbldwrZHRNWQJHDE0447-18-43 10:22:00 Test Item Value Reference Range Interpretation Comments MPV (test code = MPV) 11.4 7.4-10.4 [facility] ArlingtonGhgcpmnAMRSLQEJJW2907-19-32 10:22:00 Test Item Value Reference Range Interpretation Comments Platelet (test code = Platelet) 74 133-450 [facility] ArlingtonCehwtojSLBROTRRRI8066-02-19 10:22:00 Test Item Value Reference Range Interpretation Comments RBC (test code = RBC) 3.16 4.20-5.40 [facility] ArlingtonHdatrylKLWXVGAKJW4558-53-05 10:22:00 Test Item Value Reference Range Interpretation Comments WBC (test code = WBC) 5.3 3.7-10.4 [facility] ArlingtonFgpzdteWZROWBCKZV5462-62-60 10:22:00 Test Item Value Reference Range Interpretation Comments Hgb (test code = Hgb) 8.4 12.0-16.0 [facility] ArlingtonGexuqovRVHIPPOSGH7534-98-53 10:22:00 Test Item Value Reference Range Interpretation Comments Monocytes (test code = Monocytes) 14.5 2.0-12.0 [facility] ArlingtonHadabaaZXFNVSICOJ1493-66-32 10:22:00 Test Item Value Reference Range Interpretation Comments Lymphocytes (test code = Lymphocytes) 29.8 20.0-40.0 [facility] ArlingtonTqedmioUVTDOXNLJK1491-53-16 10:22:00 Test Item Value Reference Range Interpretation Comments Eosinophils # (test code 0.1 See_Comment [A utomated message] The = Eosinophils #) system [facility] h generated this result tra nsmitted reference range : <=0.5. The reference r leo was not used to int erpret this result as normal/abnormal . [facility] ArlingtonBztuakwVSNWLDFXJP0108-75-69 10:22:00 Test Item Value Reference Range Interpretation Comments Monocytes # (test code 0.8 See_Comment [Aut omated message] The = Monocytes #) system which generated this result tra nsmitted reference range : <=0.8. The reference r leo was not used to int erpret this result as normal/abnormal . [facility] ArlingtonHlccmytGPATUWPFQE5266-67-36 10:22:00 Test Item Value Reference Range Interpretation Comments Segs-Bands # (test code = Segs-Bands #) 2.9 1.5-8.1 [facility] ArlingtonTqlqgknPPDPLTREHR1375-88-85 10:22:00 Test Item Value Reference Range Interpretation Comments Lymphocytes # (test code = Lymphocytes 1.6 1.0-5.5 #) [facility] ArlingtonMkoimouKQCQTTJOVS2345-01-72 10:22:00 Test Item Value Reference Range Interpretation Comments Basophils (test code = 0.4 See_Comment [Aut omated message] The Basophils) system which ge nerated this result tra nsmitted reference range : <=1.0. The reference r leo was not used to int erpret this result as normal/abnormal . [facility] ArlingtonEknijkwLFMKANTYMW1841-41-39 10:22:00 Test Item Value Reference Range Interpretation Comments Eosinophils (test code = 1.2 See_Comment [A utomated message] The Eosinophils) system which ge nerated this result tra nsmitted reference range : <=4.0. The reference r leo was not used to int erpret this result as normal/abnormal . [facility]YcpmguvVNXYJHOOJN7882-68-18 10:22:00 Test Item Value Reference Range Interpretation Comments Segs (test code = Segs) 54.1 45.0-75.0 [facility]SPE[facility] SLPFVPQMX6034-15-14 10:22:00 Test Item Value Reference Range Interpretation Comments Hgb A1C (test code = Hgb A1C) 8.9 [facility]ownCARDIAC VWMKVAG8079-21-53 17:40:00 Test Item Value Reference Range Interpretation Comments Total CK (test code = Total CK) 344 12-191 [facility] UptownLboisufZEAJXKZCVO6458-43-38 17:40:00 Test Item Value Reference Range Interpretation Comments IVETTE (test code = IVETTE) Positive *ABN*(07/26/16 11:40 AM) [facility]WwyrzmuXUIWBHDTLZ5594-55-08 17:40:00 Test Item Value Reference Range Interpretation Comments RN SHIFT MGR Ab (test code = RN SHIFT MGR Ab) no gt [facility] CenterJrzcoipTYKVWBTWMG0989-67-45 17:40:00 Test Item Value Reference Range Interpretation Comments Sm Ab (test code = Sm Ab) no gt [facility] CenterTwqncjbAUVDVIABWI8827-84-97 17:40:00 Test Item Value Reference Range Interpretation Comments IVETTE Interp (test code Pattern appears = IVETTE Interp) Nucleolar. [facility] CenterMpheskxIADRLLEHWS9928-19-98 17:40:00 Test Item Value Reference Range Interpretation Comments SS-B (La) Ab (test code = SS-B (La) Ab) no gt [facility] CenterJjhuilxDWDGRGWXBF2796-64-20 17:40:00 Test Item Value Reference Range Interpretation Comments SS-A (Ro) Ab (test code = SS-A (Ro) Ab) no gt [facility] CenterDfwocfyIOUGMLWYDD5003-05-22 17:40:00 Test Item Value Reference Range Interpretation Comments DNA Ab (DS) (test Negative (07/26/16 11:40 code = DNA Ab (DS)) AM) [facility] CenterPzaksbmKMNNVGJLLU9625-92-26 17:40:00 Test Item Value Reference Range Interpretation Comments IVETTE Titer (test code = 1:40 *ABN*(07/26/16 IVETTE Titer) 11:40 AM) [facility]2017-02-05 17:40:00 Test Item Value Reference Range Interpretation Comments U Sodium (test code = U Sodium) 21 [facility] CenterIptgctmYQTHUYSLRQ0871-99-55 14:00:00 Test Item Value Reference Range Interpretation Comments INR (test code = INR) 1.11 0.85-1.17 [facility] CenterUlzzcfxNEVPBUFAIY6854-90-03 14:00:00 Test Item Value Reference Range Interpretation Comments PT (test code = PT) 14.5 s 12.0-14.7 [facility] CenterKlbffzjLZLOHBRUCH3884-58-11 14:00:00 Test Item Value Reference Range Interpretation Comments Hep A IgM (test code Negative *NA*(07/26/16 = Hep A IgM) 8:00 AM) [facility] CenterIovcaytCWGPVBBCIC0391-74-56 14:00:00 Test Item Value Reference Range Interpretation Comments Hep B Core IgM (test Negative *NA*(07/26/16 code = Hep B Core 8:00 AM) IgM) [facility] UptownVkaoyoeJSZCVAVBOZ8307-16-69 14:00:00 Test Item Value Reference Range Interpretation Comments Hep C Ab (test code = Negative *NA*(07/26/16 Hep C Ab) 8:00 AM) [facility] UptownUrirdfrPOKQNWSYXI1143-40-68 14:00:00 Test Item Value Reference Range Interpretation Comments Hep Bs Ag (test code Negative *NA*(07/26/16 = Hep Bs Ag) 8:00 AM) [facility]2017-02-05 10:42:00 Test Item Value Reference Range Interpretation Comments B/C Ratio (test code = B/C Ratio) 17 6-25 [facility]2017-02-05 10:42:00 Test Item Value Reference Range Interpretation Comments ALT (test code = ALT) 1232 See_Comment [Auto mated message] The system which ge nerated this result transmit rohit reference range : <=65. The reference range was not used to interpr et this result as reij l/abnormal. [facility]ownANDA Networks [id number] 10:42:00 Test Item Value Reference Range Interpretation Comments A/G Ratio (test code = A/G Ratio) 0.5 0.7-1.6 [facility]2017-02-05 10:42:00 Test Item Value Reference Range Interpretation Comments Bili Total (test code = Bili Total) 0.3 0.2-1.3 [facility]2017-02-05 10:42:00 Test Item Value Reference Range Interpretation Comments Alk Phos (test code = Alk Phos) 79 39-136 [facility]2017-02-05 10:42:00 Test Item Value Reference Range Interpretation Comments AST (test code = AST) 586 See_Comment [Auto mated message] The system which ge nerated this result transmit rohit reference range : <=37. The reference range was not used to interpr et this result as reji l/abnormal. [facility]ownANDA [facility] [id number] 10:42:00 Test Item Value Reference Range Interpretation Comments Total Protein (test code = Total 5.5 6.4-8.4 Protein) [facility] [id number] 10:42:00 Test Item Value Reference Range Interpretation Comments Globulin (test code = Globulin) 3.7 2.7-4.2 [facility] [id number] 10:42:00 Test Item Value Reference Range Interpretation Comments Albumin Lvl (test code = Albumin Lvl) 1.8 3.5-5.0 [facility] [id number] 10:42:00 Test Item Value Reference Range Interpretation Comments Magnesium Lvl (test code = Magnesium 2.1 1.8-2.4 Lvl) [facility] UptownVmnkpuiUARDQEYIZA1562-75-41 10:42:00 Test Item Value Reference Range Interpretation Comments Acanthocyte (test code = Acanthocyte) Slight [facility] ArlingtonWdyzuneFOIOEAGBJP0071-37-48 10:42:00 Test Item Value Reference Range Interpretation Comments Rouleaux (test code = Present *ABN*(07/26/16 Rouleaux) 4:42 AM) [facility] ArlingtonFqruqrhNWQBQNTMYC1757-20-89 10:42:00 Test Item Value Reference Range Interpretation Comments Anisocyte (test code = 1+ *ABN*(07/26/16 4:42 Anisocyte) AM) [facility] ArlingtonAgjwltmBSLDFRHTTR0989-61-33 10:42:00 Test Item Value Reference Range Interpretation Comments Basophils # (test code 0.1 See_Comment [Aut omated message] The = Basophils #) system which generated this result tra nsmitted reference range : <=0.2. The reference r leo was not used to int erpret this result as normal/abnormal . [facility] UptownKlgwmnxJSQJUSQHXH7077-10-57 10:42:00 Test Item Value Reference Range Interpretation Comments Large Plt (test code Moderate *ABN*(07/26/16 = Large Plt) 4:42 AM) [facility] UptownRqxabxxVBXRHBXQLR8420-85-60 10:42:00 Test Item Value Reference Range Interpretation Comments C4 Complement (test code = C4 42 16-47 Complement) [facility] AND [id number] 16:34:00 Test Item Value Reference Range Interpretation Comments UA Sq Epi (test code = UA Sq Epi) None Seen [facility] AND [id number] 16:34:00 Test Item Value Reference Range Interpretation Comments UA Waxy Cast (test code = UA Waxy Cast) 1 [facility] AND [id number] 16:34:00 Test Item Value Reference Range Interpretation Comments UA Hyal Cast (test 4 See_Comment [Automat ed message] The code = UA Hyal Cast) system which generated this result transmit rohit reference range : <=2. The reference range was not used to interpr et this result as reji l/abnormal. [facility] AND [id number] 16:34:00 Test Item Value Reference Range Interpretation Comments UA Bacteria (test code = UA Occasional /HPF Bacteria) [facility] AND [id number] 16:34:00 Test Item Value Reference Range Interpretation Comments UA Mucus (test code = UA Mucus) Few /LPF [facility] AND [id number] 16:34:00 Test Item Value Reference Range Interpretation Comments UA Amorph Destiny (test code = Occasional /HPF UA Amorph Destiny) [facility] AND [id number] 16:34:00 Test Item Value Reference Range Interpretation Comments UA Leuk Est (test Negative (07/25/16 10:34 code = UA Leuk Est) AM) [facility] AND [id number] 16:34:00 Test Item Value Reference Range Interpretation Comments UA Nitrite (test code Negative (07/25/16 10:34 = UA Nitrite) AM) [facility] AND [id number] 16:34:00 Test Item Value Reference Range Interpretation Comments UA RBC (test code = 2 See_Comment [Automa rohit message] The UA RBC) system which ge nerated this result transmit rohit reference range : <=2. The reference range was not used to interpr et this result as reji l/abnormal. [facility] AND [id number] 16:34:00 Test Item Value Reference Range Interpretation Comments UA WBC (test code = 6 See_Comment [Automa rohit message] The UA WBC) system which ge nerated this result transmit rohit reference range : <=5. The reference range was not used to interpr et this result as reji l/abnormal. [facility] AND [id number] 16:34:00 Test Item Value Reference Range Interpretation Comments UA Urobilinogen (test code = UA 2.0 0.1-1.0 Urobilinogen) [facility] AND [id number] 16:34:00 Test Item Value Reference Range Interpretation Comments UA Ketones (test code = UA Negative mg/dL Ketones) [facility] AND [id number] 16:34:00 Test Item Value Reference Range Interpretation Comments UA Glucose (test code = UA Glucose) 70 mg/dL [facility] AND [id number] 16:34:00 Test Item Value Reference Range Interpretation Comments UA Blood (test code = Negative (07/25/16 10:34 UA Blood) AM) [facility] AND [id number] 16:34:00 Test Item Value Reference Range Interpretation Comments UA Bili (test code = Negative *NA*(07/25/16 UA Bili) 10:34 AM) [facility] AND [id number] 16:34:00 Test Item Value Reference Range Interpretation Comments UA Protein (test code = UA >=300 mg/dL Protein) [facility] AND [id number] 16:34:00 Test Item Value Reference Range Interpretation Comments UA Spec Grav (test code = UA Spec Grav) 1.012 [facility] AND [id number] 16:34:00 Test Item Value Reference Range Interpretation Comments UA pH (test code = UA pH) 5.5 5.0-8.0 [facility] AND [id number] 16:34:00 Test Item Value Reference Range Interpretation Comments UA Turbidity (test code Slight *ABN*(07/25/16 = UA Turbidity) 10:34 AM) [facility] AND [id number] 16:34:00 Test Item Value Reference Range Interpretation Comments UA Color (test code = Dark Yellow *NA*(07/25/16 UA Color) 10:34 AM) [facility] AND [id number] 16:34:00 Test Item Value Reference Range Interpretation Comments UA Gran Cast (test code = UA Gran Cast) 9 [facility] [id number] 16:34:00 Test Item Value Reference Range Interpretation Comments U Sodium (test code = U Sodium) 30 [facility] [id number] 16:34:00 Test Item Value Reference Range Interpretation Comments U Prot/Creat (test code = U Prot/Creat) 3.1 [facility] [id number] 16:34:00 Test Item Value Reference Range Interpretation Comments U Protein (test code = U Protein) 420.9 [facility]annURINE [id number] 16:34:00 Test Item Value Reference Range Interpretation Comments U Creatinine (test code = U 136.00 Creatinine) [facility] [id number] 08:55:00 Test Item Value Reference Range Interpretation Comments Magnesium Lvl (test code = Magnesium 2.0 1.8-2.4 Lvl) [facility]annCHEM [id number] 08:55:00 Test Item Value Reference Range Interpretation Comments Phosphorus (test code = Phosphorus) 5.2 2.5-4.5 [facility] CenterannCARDIAC [id number] 17:29:00 Test Item Value Reference Range Interpretation Comments Troponin-I (test code 0.28 See_Comment [Auto mated message] The = Troponin-I) system which g enerated this result transmit rohit reference range : <=0.40. The reference r leo was not used to interpr et this result as reji l/abnormal. [facility] CenterRose IslandAC [id number] 17:29:00 Test Item Value Reference Range Interpretation Comments Total CK (test code = Total CK) 2616 12-191 [facility] CenterRose IslandAC [id number] 17:29:00 Test Item Value Reference Range Interpretation Comments Troponin-T (test code 0.144 See_Comment [Auto mated message] The = Troponin-T) system which g enerated this result transmit rohit reference range : <=0.100. The reference r leo was not used to interpr et this result as reji l/abnormal. [facility] CenterRose IslandAC [id number] 17:29:00 Test Item Value Reference Range Interpretation Comments CK MB Index (test 0.2 See_Comment [Automate d message] The code = CK MB Index) system w [facility] generated this result transmit rohit reference range : <=2.5. The reference range was not used to interpr et this result as reji l/abnormal. [facility] [employer] [id number] 17:29:00 Test Item Value Reference Range Interpretation Comments CK MB (test code = CK MB) 6.3 0.5-3.6 [facility] [place] [id number] 11:20:00 Test Item Value Reference Range Interpretation Comments Troponin-I (test code 0.38 See_Comment [Auto mated message] The = Troponin-I) system which g enerated this result transmit rohit reference range : <=0.40. The reference r leo was not used to interpr et this result as reji l/abnormal. [facility] [employer]2017-02-03 11:20:00 Test Item Value Reference Range Interpretation Comments Troponin-T (test code 0.173 See_Comment [Auto mated message] The = Troponin-T) system which g enerated this result transmit rohit reference range : <=0.100. The reference r leo was not used to interpr et this result as reij l/abnormal. [facility] [employer]2017-02-03 11:20:00 Test Item Value Reference Range Interpretation Comments CK MB Index (test 0.2 See_Comment [Automate d message] The code = CK MB Index) system w [facility] generated this result transmit rohit reference range : <=2.5. The reference range was not used to interpr et this result as reji l/abnormal. [facility] [employer]2017-02-03 11:20:00 Test Item Value Reference Range Interpretation Comments CK MB (test code = CK MB) 5.6 0.5-3.6 [facility] [employer]2017-02-03 11:20:00 Test Item Value Reference Range Interpretation Comments Phosphorus (test code = Phosphorus) 5.5 2.5-4.5 [facility] [employer]2017-02-03 06:18:00 Test Item Value Reference Range Interpretation Comments BNP (test code = BNP) 701 [facility] [employer]2017-02-03 04:59:27 Test Item Value Reference Range Interpretation Comments Troponin-I (test code 0.57 See_Comment [Auto mated message] The = Troponin-I) system which g enerated this result transmit rohit reference range : <=0.40. The reference r leo was not used to interpr et this result as reji l/abnormal. [employer]2016-12-26 10:22:00 Test Item Value Reference Range Interpretation Comments BNP (test code = BNP) 526 [facility] [employer]2016-12-26 10:22:00 Test Item Value Reference Range Interpretation Comments Magnesium Lvl (test code = Magnesium 2.1 1.8-2.4 Lvl) [facility]2016-12-26 10:22:00 Test Item Value Reference Range Interpretation Comments Glucose Lvl (test code = Glucose Lvl) 117 70-99 [facility]2016-12-26 10:22:00 Test Item Value Reference Range Interpretation Comments BUN (test code = BUN) 41 7-22 [facility]2016-12-26 10:22:00 Test Item Value Reference Range Interpretation Comments Creatinine Lvl (test code = Creatinine 2.00 0.50-1.40 Lvl) [facility]2016-12-26 10:22:00 Test Item Value Reference Range Interpretation Comments Calcium Lvl (test code = Calcium Lvl) 9.0 8.5-10.5 [facility]2016-12-26 10:22:00 Test Item Value Reference Range Interpretation Comments Chloride Lvl (test code = Chloride Lvl) 102 95-109 [facility]2016-12-26 10:22:00 Test Item Value Reference Range Interpretation Comments CO2 (test code = CO2) 33 24-32 [facility]2016-12-26 10:22:00 Test Item Value Reference Range Interpretation Comments Sodium Lvl (test code = Sodium Lvl) 144 135-145 [facility]2016-12-26 10:22:00 Test Item Value Reference Range Interpretation Comments Potassium Lvl (test code = Potassium 4.0 3.5-5.1 Lvl) [facility]2016-12-26 10:22:00 Test Item Value Reference Range Interpretation Comments eGFR (test code = eGFR) 32 [facility]2016-12-26 10:22:00 Test Item Value Reference Range Interpretation Comments AGAP (test code = AGAP) 13.0 10.0-20.0 [facility]2016-12-26 10:22:00 Test Item Value Reference Range Interpretation Comments Phosphorus (test code = Phosphorus) 4.6 2.5-4.5 [facility] ArlingtonFkyhyeqCGSGSYJMZT9419-55-97 10:22:00 Test Item Value Reference Range Interpretation Comments RBC (test code = RBC) 3.68 4.20-5.40 [facility] ArlingtonGhdolkaLWXJARZCGZ9410-60-13 10:22:00 Test Item Value Reference Range Interpretation Comments Hgb (test code = Hgb) 9.9 12.0-16.0 [facility] ArlingtonBlavhcxJASFBHXRLV2001-10-90 10:22:00 Test Item Value Reference Range Interpretation Comments MCH (test code = MCH) 26.8 pg 27.0-31.0 [facility] ArlingtonPodkkboEKGYQZVLMK8500-41-69 10:22:00 Test Item Value Reference Range Interpretation Comments MCHC (test code = MCHC) 34.2 32.0-36.0 [facility] ArlingtonDmygmhfVZUBPJQYEX9292-20-45 10:22:00 Test Item Value Reference Range Interpretation Comments MCV (test code = MCV) 78.3 80.0-98.0 [facility] ArlingtonRvjavjqRKHKEXZJQU0622-36-99 10:22:00 Test Item Value Reference Range Interpretation Comments Hct (test code = Hct) 28.8 36.0-48.0 [facility] ArlingtonAkwiqdtYPVUEHEVHO5490-64-65 10:22:00 Test Item Value Reference Range Interpretation Comments Platelet (test code = Platelet) 191 133-450 [facility] ArlingtonJggmuemNAZYDNKGOF8381-59-40 10:22:00 Test Item Value Reference Range Interpretation Comments MPV (test code = MPV) 9.5 7.4-10.4 [facility] [place]QBSLJHGBP3137-79-68 10:22:00 Test Item Value Reference Range Interpretation Comments RDW (test code = RDW) 15.3 11.5-14.5 [facility] ArlingtonWunsfucOEXFTTUTND5838-12-51 10:22:00 Test Item Value Reference Range Interpretation Comments WBC (test code = WBC) 5.6 3.7-10.4 [facility] ArlingtonDmkhzlpAWHNUSPECR5280-62-54 10:22:00 Test Item Value Reference Range Interpretation Comments Eosinophils # (test code 0.5 See_Comment [A utomated message] The = Eosinophils #) system whic h generated this result tra nsmitted reference range : <=0.5. The reference r leo was not used to int erpret this result as normal/abnormal . [facility] ArlingtonYrnbwicBUGNITVIGA2786-32-83 10:22:00 Test Item Value Reference Range Interpretation Comments Microcyte (test code = 1+ *ABN*(06/15/16 Microcyte) 4:22 AM) [facility] ArlingtonJhjbcynTYWZECBQAK6611-36-58 10:22:00 Test Item Value Reference Range Interpretation Comments Basophils # (test code 0.1 See_Comment [Aut omated message] The = Basophils #) system which generated this result tra nsmitted reference range : <=0.2. The reference r leo was not used to int erpret this result as normal/abnormal . [facility] ArlingtonYeypbtqMPWGNVOXPG6561-24-17 10:22:00 Test Item Value Reference Range Interpretation Comments Lymphocytes (test code = Lymphocytes) 33.5 20.0-40.0 [facility] ArlingtonXvxegxwSKNKMDQULJ6164-62-65 10:22:00 Test Item Value Reference Range Interpretation Comments Segs (test code = Segs) 47.6 45.0-75.0 [facility] ArlingtonEfsszapIHDHNAFYHX8379-82-08 10:22:00 Test Item Value Reference Range Interpretation Comments Monocytes (test code = Monocytes) 8.4 2.0-12.0 [facility] ArlingtonEvtvjpxXKVBLISKCI6018-72-07 10:22:00 Test Item Value Reference Range Interpretation Comments Eosinophils (test code = 9.4 See_Comment [A utomated message] The Eosinophils) system which ge nerated this result tra nsmitted reference range : <=4.0. The reference r leo was not used to int erpret this result as normal/abnormal . [facility] ArlingtonNxmhbxlBYIJVBYQHG3756-00-69 10:22:00 Test Item Value Reference Range Interpretation Comments Segs-Bands # (test code = Segs-Bands #) 2.6 1.5-8.1 [facility] ArlingtonVrbrvmxWKMPMZMVOL0078-36-91 10:22:00 Test Item Value Reference Range Interpretation Comments Lymphocytes # (test code = Lymphocytes 1.9 1.0-5.5 #) [facility] ArlingtonBrcoxjeAZMCGTWNYZ3832-65-53 10:22:00 Test Item Value Reference Range Interpretation Comments Basophils (test code = 1.1 See_Comment [Aut omated message] The Basophils) system which ge nerated this result tra nsmitted reference range : <=1.0. The reference r leo was not used to int erpret this result as normal/abnormal . [facility] ArlingtonPiysnmwDGEKZQPFBV0838-57-02 10:22:00 Test Item Value Reference Range Interpretation Comments Monocytes # (test code 0.5 See_Comment [Aut omated message] The = Monocytes #) system which generated this result tra nsmitted reference range : <=0.8. The reference r leo was not used to int erpret this result as normal/abnormal . [facility]2016-12-25 11:03:00 Test Item Value Reference Range Interpretation Comments Phosphorus (test code = Phosphorus) 4.8 2.5-4.5 [facility]2016-12-25 11:03:00 Test Item Value Reference Range Interpretation Comments Magnesium Lvl (test code = Magnesium 2.0 1.8-2.4 Lvl) [facility]2016-12-25 11:03:00 Test Item Value Reference Range Interpretation Comments eGFR (test code = eGFR) 32 [facility]2016-12-25 11:03:00 Test Item Value Reference Range Interpretation Comments Chloride Lvl (test code = Chloride Lvl) 101 95-109 [facility]2016-12-25 11:03:00 Test Item Value Reference Range Interpretation Comments Potassium Lvl (test code = Potassium 4.4 3.5-5.1 Lvl) [facility]2016-12-25 11:03:00 Test Item Value Reference Range Interpretation Comments BUN (test code = BUN) 37 7-22 [facility]2016-12-25 11:03:00 Test Item Value Reference Range Interpretation Comments Glucose Lvl (test code = Glucose Lvl) 119 70-99 [facility]2016-12-25 11:03:00 Test Item Value Reference Range Interpretation Comments Creatinine Lvl (test code = Creatinine 2.00 0.50-1.40 Lvl) [facility]2016-12-25 11:03:00 Test Item Value Reference Range Interpretation Comments Sodium Lvl (test code = Sodium Lvl) 142 135-145 [facility]2016-12-25 11:03:00 Test Item Value Reference Range Interpretation Comments Calcium Lvl (test code = Calcium Lvl) 8.7 8.5-10.5 [facility]2016-12-25 11:03:00 Test Item Value Reference Range Interpretation Comments CO2 (test code = CO2) 32 24-32 [facility]2016-12-25 11:03:00 Test Item Value Reference Range Interpretation Comments AGAP (test code = AGAP) 13.4 10.0-20.0 [facility]NcenyvhUHNOBDVPEB6432-34-06 11:03:00 Test Item Value Reference Range Interpretation Comments Eosinophils (test code = 10.3 See_Comment [A utomated message] The Eosinophils) system which ge nerated this result tra nsmitted reference range : <=4.0. The reference r leo was not used to int erpret this result as normal/abnormal . [facility] ArlingtonMlyqgkxQMCSOSZFLJ9173-01-18 11:03:00 Test Item Value Reference Range Interpretation Comments Basophils # (test code 0.1 See_Comment [Aut omated message] The = Basophils #) system which generated this result tra nsmitted reference range : <=0.2. The reference r leo was not used to int erpret this result as normal/abnormal . [facility] ArlingtonOvlnwxxVYGTWUMACN5669-91-23 11:03:00 Test Item Value Reference Range Interpretation Comments Eosinophils # (test code 0.5 See_Comment [A utomated message] The = Eosinophils #) system whic h generated this result tra nsmitted reference range : <=0.5. The reference r leo was not used to int erpret this result as normal/abnormal . [facility] ArlingtonTpztrjpWSVIUMMMAE5819-85-53 11:03:00 Test Item Value Reference Range Interpretation Comments Monocytes # (test code 0.5 See_Comment [Aut omated message] The = Monocytes #) system which generated this result tra nsmitted reference range : <=0.8. The reference r leo was not used to int erpret this result as normal/abnormal . [facility] ArlingtonJdhwvtlHYDQYVKLAH1278-00-99 11:03:00 Test Item Value Reference Range Interpretation Comments Segs-Bands # (test code = Segs-Bands #) 2.1 1.5-8.1 [facility] ArlingtonTmzttezFPWQDUOHOU4784-66-44 11:03:00 Test Item Value Reference Range Interpretation Comments Basophils (test code = 1.2 See_Comment [Aut omated message] The Basophils) system which ge nerated this result tra nsmitted reference range : <=1.0. The reference r leo was not used to int erpret this result as normal/abnormal . [facility] ArlingtonMhcvxeeKRWSPIWRMB0619-98-68 11:03:00 Test Item Value Reference Range Interpretation Comments Lymphocytes # (test code = Lymphocytes 1.9 1.0-5.5 #) [facility] ArlingtonHlxxqqoYPRWNBSNVE2520-32-78 11:03:00 Test Item Value Reference Range Interpretation Comments Segs (test code = Segs) 42.5 45.0-75.0 [facility] ArlingtonWwoubjnUVPIEIARSI0876-23-70 11:03:00 Test Item Value Reference Range Interpretation Comments Lymphocytes (test code = Lymphocytes) 37.0 20.0-40.0 [facility] ArlingtonNwoxvwhZKGBFRZXMR8302-81-01 11:03:00 Test Item Value Reference Range Interpretation Comments Monocytes (test code = Monocytes) 9.0 2.0-12.0 [facility] ArlingtonFoehokvFAOLDCGTJQ4148-45-65 11:03:00 Test Item Value Reference Range Interpretation Comments MPV (test code = MPV) 9.8 7.4-10.4 [facility] ArlingtonVyrcqhpTDWIBUWOAI9676-74-92 11:03:00 Test Item Value Reference Range Interpretation Comments WBC (test code = WBC) 5.0 3.7-10.4 [facility] ArlingtonArvqbisBWMZBDSRJW4680-47-41 11:03:00 Test Item Value Reference Range Interpretation Comments RBC (test code = RBC) 3.57 4.20-5.40 [facility] ArlingtonSmuftkeHJBCXIQEPQ3560-43-09 11:03:00 Test Item Value Reference Range Interpretation Comments Hgb (test code = Hgb) 9.4 12.0-16.0 [facility] ArlingtonLcgclafUOZTPMEFZM3178-82-27 11:03:00 Test Item Value Reference Range Interpretation Comments Hct (test code = Hct) 28.5 36.0-48.0 [facility] ArlingtonHbpqlbdGKLFHSNVPJ3573-22-34 11:03:00 Test Item Value Reference Range Interpretation Comments Platelet (test code = Platelet) 183 133-450 [facility] ArlingtonNszbzpuJFCSIJRUHJ1386-23-15 11:03:00 Test Item Value Reference Range Interpretation Comments MCV (test code = MCV) 79.9 80.0-98.0 [facility] ArlingtonSenshvtOTTVCVSUJI7952-14-16 11:03:00 Test Item Value Reference Range Interpretation Comments MCH (test code = MCH) 26.3 pg 27.0-31.0 [facility] ArlingtonMsshshnCEHRABDCZW0557-43-56 11:03:00 Test Item Value Reference Range Interpretation Comments MCHC (test code = MCHC) 33.0 32.0-36.0 [facility] ArlingtonIrguvvpLVSLPZIQQW1822-24-88 11:03:00 Test Item Value Reference Range Interpretation Comments RDW (test code = RDW) 15.9 11.5-14.5 [facility]2016-12-24 10:26:00 Test Item Value Reference Range Interpretation Comments U Prot/Creat (test code = U Prot/Creat) 6.9 [facility]2016-12-24 10:26:00 Test Item Value Reference Range Interpretation Comments U Creatinine (test code = U Creatinine) 19.30 [facility]2016-12-24 10:26:00 Test Item Value Reference Range Interpretation Comments U Protein (test code = U Protein) 133.1 [facility] ArlingtonZyntsdhGCZGKVLOQQ4560-21-10 09:20:00 Test Item Value Reference Range Interpretation Comments MPV (test code = MPV) 9.7 7.4-10.4 [facility] ArlingtonBwlngucUUPJFHPMFF7238-84-87 09:20:00 Test Item Value Reference Range Interpretation Comments Platelet (test code = Platelet) 184 133-450 [facility] ArlingtonKycxtqsLENKMDMEIW2318-38-76 09:20:00 Test Item Value Reference Range Interpretation Comments RDW (test code = RDW) 15.9 11.5-14.5 [facility] ArlingtonTryzzweULHUHNKLRF1291-92-04 09:20:00 Test Item Value Reference Range Interpretation Comments MCV (test code = MCV) 79.3 80.0-98.0 [facility] ArlingtonHfaosmzZFFPUGGTKU3374-19-73 09:20:00 Test Item Value Reference Range Interpretation Comments MCHC (test code = MCHC) 33.0 32.0-36.0 [facility] ArlingtonQomtdnsEYHWDNEZOV2523-57-79 09:20:00 Test Item Value Reference Range Interpretation Comments MCH (test code = MCH) 26.2 pg 27.0-31.0 [facility] ArlingtonFduuphrJZAILKWOBB6167-10-24 09:20:00 Test Item Value Reference Range Interpretation Comments Hct (test code = Hct) 29.4 36.0-48.0 [facility] ArlingtonAeyjkpmOJNJNLFVBX6047-14-89 09:20:00 Test Item Value Reference Range Interpretation Comments Hgb (test code = Hgb) 9.7 12.0-16.0 [facility] ArlingtonDvjzwbdVVPDIPYPUA1251-63-02 09:20:00 Test Item Value Reference Range Interpretation Comments RBC (test code = RBC) 3.70 4.20-5.40 [facility] ArlingtonKhblttnEWQCXMMDNN0594-52-92 09:20:00 Test Item Value Reference Range Interpretation Comments WBC (test code = WBC) 5.7 3.7-10.4 [facility] ArlingtonVqomfasMERYOCKJZC7075-00-21 09:20:00 Test Item Value Reference Range Interpretation Comments Basophils # (test code 0.1 See_Comment [Aut omated message] The = Basophils #) system which generated this result tra nsmitted reference range : <=0.2. The reference r leo was not used to int erpret this result as normal/abnormal . [facility] ArlingtonSplmywzSTSNKLRNWZ8495-61-35 09:20:00 Test Item Value Reference Range Interpretation Comments Lymphocytes # (test code = Lymphocytes 2.2 1.0-5.5 #) [facility] ArlingtonFexyvffMXDQJMIANM7690-16-18 09:20:00 Test Item Value Reference Range Interpretation Comments Eosinophils # (test code 0.5 See_Comment [A utomated message] The = Eosinophils #) system wh h generated this result tra nsmitted reference range : <=0.5. The reference r leo was not used to int erpret this result as normal/abnormal . [facility] ArlingtonUshmbnbAEQPNEUMZY3494-25-08 09:20:00 Test Item Value Reference Range Interpretation Comments Monocytes # (test code 0.5 See_Comment [Aut omated message] The = Monocytes #) system which generated this result tra nsmitted reference range : <=0.8. The reference r leo was not used to int erpret this result as normal/abnormal . [facility] ArlingtonHywrppxLLQXLENBZL3070-18-53 09:20:00 Test Item Value Reference Range Interpretation Comments Basophils (test code = 1.1 See_Comment [Aut omated message] The Basophils) system which ge nerated this result tra nsmitted reference range : <=1.0. The reference r leo was not used to int erpret this result as normal/abnormal . [facility] ArlingtonQwrjlszBYFNKUJFMG7329-25-68 09:20:00 Test Item Value Reference Range Interpretation Comments Segs-Bands # (test code = Segs-Bands #) 2.3 1.5-8.1 [facility] ArlingtonWghhceqHKDIGPOJOF0074-74-77 09:20:00 Test Item Value Reference Range Interpretation Comments Eosinophils (test code = 9.5 See_Comment [A utomated message] The Eosinophils) system which ge nerated this result tra nsmitted reference range : <=4.0. The reference r leo was not used to int erpret this result as normal/abnormal . [facility] ArlingtonSaronxjJVNXSXECGO7715-69-87 09:20:00 Test Item Value Reference Range Interpretation Comments Monocytes (test code = Monocytes) 9.0 2.0-12.0 [facility] ArlingtonZdjlhngOGTBQOSPEW9374-82-24 09:20:00 Test Item Value Reference Range Interpretation Comments Lymphocytes (test code = Lymphocytes) 38.9 20.0-40.0 [facility] ArlingtonWwnrhdwQIPHNMOERI5476-56-78 09:20:00 Test Item Value Reference Range Interpretation Comments Segs (test code = Segs) 41.5 45.0-75.0 [facility]2016-12-24 06:34:00 Test Item Value Reference Range Interpretation Comments Magnesium Lvl (test code = Magnesium 1.7 1.8-2.4 Lvl) [facility]2016-12-24 06:34:00 Test Item Value Reference Range Interpretation Comments Phosphorus (test code = Phosphorus) 4.2 2.5-4.5 [facility]HLGYURGQOH6124[facility]68-87 06:34:00 Test Item Value Reference Range Interpretation Comments AGAP (test code = AGAP) 14.3 10.0-20.0 [facility]WyvocltAQAYHIAEOIJY5670-85-96 06:34:00 Test Item Value Reference Range Interpretation Comments eGFR (test code = eGFR) 41 [facility] HospitalUxtjqcjOJXNOYKHHLTM0380-83-48 06:34:00 Test Item Value Reference Range Interpretation Comments Chloride Lvl (test code = Chloride Lvl) 103 95-109 [facility] HospitalFbkzwlbXWHBYPYMKCCT6849-75-57 06:34:00 Test Item Value Reference Range Interpretation Comments Calcium Lvl (test code = Calcium Lvl) 8.5 8.5-10.5 [facility] HospitalIhdpjpqMYMUOIAFMZUS8524-68-01 06:34:00 Test Item Value Reference Range Interpretation Comments CO2 (test code = CO2) 32 24-32 [facility] HospitalMbkhpwdVQNRLGSIFPCW8204-69-50 06:34:00 Test Item Value Reference Range Interpretation Comments Glucose Lvl (test code = Glucose Lvl) 173 70-99 [facility] HospitalQkwxfroWNFWKVLIAFZP4739-89-82 06:34:00 Test Item Value Reference Range Interpretation Comments BUN (test code = BUN) 37 7-22 [facility] HospitalKxcbyubRSHPBTZJBWWD3020-21-99 06:34:00 Test Item Value Reference Range Interpretation Comments Creatinine Lvl (test code = Creatinine 1.63 0.50-1.40 Lvl) [facility] HospitalYnhctncWHCIMEEJAFMF9860-76-67 06:34:00 Test Item Value Reference Range Interpretation Comments Potassium Lvl (test code = Potassium 4.3 3.5-5.1 Lvl) [facility] HospitalAsgzvxeCHROGCCVZYRS7297-94-76 06:34:00 Test Item Value Reference Range Interpretation Comments Sodium Lvl (test code = Sodium Lvl) 145 135-145 [facility]CHE[facility] ZRIAV3238-29-23 16:21:00 Test Item Value Reference Range Interpretation Comments Ammonia (test code = Ammonia) 48.0 [facility]ptownSswqgyyGLOGICTOJC3014-64-27 14:56:00 Test Item Value Reference Range Interpretation Comments IVETTE Interp (test code Pattern appears = IVETTE Interp) Nucleolar. [facility]EzmndzvJRFQBWYJUM3884-65-04 14:56:00 Test Item Value Reference Range Interpretation Comments IVETTE Titer (test code = 1:40 *ABN*(06/11/16 IVETTE Titer) 8:56 AM) [facility] ArlingtonEvivqehEJNYMTTSJE2016-53-21 14:56:00 Test Item Value Reference Range Interpretation Comments Hep Bs Ag (test code Negative *NA*(06/11/16 = Hep Bs Ag) 8:56 AM) [facility] ArlingtonSeaaxliFRFGUUWDRN6699-35-09 14:56:00 Test Item Value Reference Range Interpretation Comments Hep C Ab (test code = Negative *NA*(06/11/16 Hep C Ab) 8:56 AM) [facility]ownNovttyxKUHQYOSDHG2058-02-75 14:56:00 Test Item Value Reference Range Interpretation Comments Hep B Core IgM (test Negative *NA*(06/11/16 code = Hep B Core 8:56 AM) IgM) [facility] ArlingtonMocgtcaDWCKKHWUAF9149-69-05 14:56:00 Test Item Value Reference Range Interpretation Comments Hep A IgM (test code Negative *NA*(06/11/16 = Hep A IgM) 8:56 AM) [facility] ArlingtonQrpuvmjNHCRUDQNIQ8423-28-05 14:56:00 Test Item Value Reference Range Interpretation Comments HIV Ag/Ab 4th Gen Negative *NA*(06/11/16 (test code = HIV 8:56 AM) Ag/Ab 4th Gen) [facility]ownCkejqfcKNFGSKXDAK5585-81-99 14:56:00 Test Item Value Reference Range Interpretation Comments IVETTE (test code = IVETTE) Positive *ABN*(06/11/16 8:56 AM) [facility]2016-12-22 10:42:00 Test Item Value Reference Range Interpretation Comments Bili Total (test code = Bili Total) 0.1 0.2-1.3 [facility]2016-12-22 10:42:00 Test Item Value Reference Range Interpretation Comments Total Protein (test code = Total 5.2 6.4-8.4 Protein) [facility]2016-12-22 10:42:00 Test Item Value Reference Range Interpretation Comments Albumin Lvl (test code = Albumin Lvl) 1.6 3.5-5.0 [facility]2016-12-22 10:42:00 Test Item Value Reference Range Interpretation Comments B/C Ratio (test code = B/C Ratio) 20 6-25 [facility]2016-12-22 10:42:00 Test Item Value Reference Range Interpretation Comments Globulin (test code = Globulin) 3.6 2.7-4.2 [facility]2016-12-22 10:42:00 Test Item Value Reference Range Interpretation Comments A/G Ratio (test code = A/G Ratio) 0.4 0.7-1.6 [facility]2016-12-22 10:42:00 Test Item Value Reference Range Interpretation Comments Alk Phos (test code = Alk Phos) 74 39-136 [facility]2016-12-22 10:42:00 Test Item Value Reference Range Interpretation Comments ALT (test code = ALT) 14 See_Comment [Auto mated message] The system which ge nerated this result transmit rohit reference range : <=65. The reference range was not used to interpr et this result as reji l/abnormal. [facility]2016-12-22 10:42:00 Test Item Value Reference Range Interpretation Comments AST (test code = AST) 13 See_Comment [Auto mated message] The system which ge nerated this result transmit rohit reference range : <=37. The reference range was not used to interpr et this result as reji l/abnormal. [facility]ptownRjfwiguZXBZLZPQGB9838-93-27 10:42:00 Test Item Value Reference Range Interpretation Comments INR (test code = INR) 1.06 0.85-1.17 [facility]ownArwfgvbQYNQFSOMMZ4381-94-68 10:42:00 Test Item Value Reference Range Interpretation Comments PT (test code = PT) 14.0 s 12.0-14.7 [facility]pepiwtYQCIQBKFIJ5158-60-43 10:42:00 Test Item Value Reference Range Interpretation Comments PTT (test code = PTT) 36.4 s 22.9-35.8 [facility] WLCOEUAQC7034[facility]85-87 10:42:00 Test Item Value Reference Range Interpretation Comments Hgb A1C (test code = Hgb A1C) 10.5 [facility] [place] ASLZDSS2337-97-09 02:08:00 Test Item Value Reference Range Interpretation Comments CK MB Index (test 1.8 See_Comment [Automate d message] The code = CK MB Index) system w [facility] generated this result transmit rohit reference range : <=2.5. The reference range was not used to interpr et this result as reji l/abnormal. [facility] QIHIDCO4896-68-34 02:08:00 Test Item Value Reference Range Interpretation Comments CK MB (test code = CK MB) 2.9 0.5-3.6 [facility] [place] LXCWRNL2471-59-23 02:08:00 Test Item Value Reference Range Interpretation Comments Troponin-T (test code 0.061 See_Comment [Auto mated message] The = Troponin-T) system which g enerated this result transmit rohit reference range : <=0.100. The reference r leo was not used to interpr et this result as reji l/abnormal. [facility] CFKUDXF2956-05-25 02:08:00 Test Item Value Reference Range Interpretation Comments Total CK (test code = Total CK) 159 12-191 [facility] PTRFFDE5966-01-75 02:08:00 Test Item Value Reference Range Interpretation Comments Troponin-I (test code no gt See_Comment [Auto mated message] The = Troponin-I) system which g enerated this result transmit rohit reference range : <=0.40. The reference r leo was not used to interpr et this result as reji l/abnormal. [place]486-12-22 02:08:00 Test Item Value Reference Range Interpretation Comments Bili Total (test code = Bili Total) 0.2 0.2-1.3 [place] 349486-12-22 02:08:00 Test Item Value Reference Range Interpretation Comments Bili Direct (test code 0.1 See_Comment [Aut omated message] The = Bili Direct) system which generated this result tra nsmitted reference range : <=0.3. The reference r leo was not used to int erpret this result as reji l/abnormal. [place] 349486-12-22 02:08:00 Test Item Value Reference Range Interpretation Comments Bili Indirect (test 0.1 See_Comment [Automa rohit message] The code = Bili Indirect) system which generated this result tra nsmitted reference range : <=1.0. The reference r leo was not used to int erpret this result as normal/abnormal . [place] 349486-12-22 02:08:00 Test Item Value Reference Range Interpretation Comments Total Protein (test code = Total 5.7 6.4-8.4 Protein) [place] 349486-12-22 02:08:00 Test Item Value Reference Range Interpretation Comments A/G Ratio (test code = A/G Ratio) 0.5 0.7-1.6 [place] 349486-12-22 02:08:00 Test Item Value Reference Range Interpretation Comments Albumin Lvl (test code = Albumin Lvl) 1.8 3.5-5.0 [place] 349486-12-22 02:08:00 Test Item Value Reference Range Interpretation Comments Globulin (test code = Globulin) 3.9 2.7-4.2 [place] 349486-12-22 02:08:00 Test Item Value Reference Range Interpretation Comments Alk Phos (test code = Alk Phos) 99 39-136 [place] 349486-12-22 02:08:00 Test Item Value Reference Range Interpretation Comments AST (test code = AST) 21 See_Comment [Auto mated message] The system which ge nerated this result transmit rohit reference range : <=37. The reference range was not used to interpr et this result as reji l/abnormal. [place] 349486-12-22 02:08:00 Test Item Value Reference Range Interpretation Comments ALT (test code = ALT) 17 See_Comment [Auto mated message] The system which ge nerated this result transmit rohit reference range : <=65. The reference range was not used to interpr et this result as reji l/abnormal. [facility] [id number] 02:08:00 Test Item Value Reference Range Interpretation Comments UDS Note (test code = See Note *NA*(06/10/16 UDS Note) 8:08 PM) [facility] [id number] 02:08:00 Test Item Value Reference Range Interpretation Comments U Propoxyph Scr (test Negative *NA*(06/10/16 code = U Propoxyph Scr) 8:08 PM) [facility] [id number] 02:08:00 Test Item Value Reference Range Interpretation Comments U Opiate Scr (test Negative *NA*(06/10/16 code = U Opiate Scr) 8:08 PM) [facility] [id number] 02:08:00 Test Item Value Reference Range Interpretation Comments U Methadone Scr (test Negative *NA*(06/10/16 code = U Methadone Scr) 8:08 PM) [facility] [id number] 02:08:00 Test Item Value Reference Range Interpretation Comments U Phencyc Scr (test Negative *NA*(06/10/16 code = U Phencyc Scr) 8:08 PM) [facility] [id number] 02:08:00 Test Item Value Reference Range Interpretation Comments U Cannab Scr (test Negative *NA*(06/10/16 code = U Cannab Scr) 8:08 PM) [facility] [id number] 02:08:00 Test Item Value Reference Range Interpretation Comments U Amph Scr (test code Negative *NA*(06/10/16 = U Amph Scr) 8:08 PM) [facility] [id number] 02:08:00 Test Item Value Reference Range Interpretation Comments U Kelly Scr (test code Negative *NA*(06/10/16 = U Kelly Scr) 8:08 PM) [facility] [id number] 02:08:00 Test Item Value Reference Range Interpretation Comments U Benzodia Scr (test Negative *NA*(06/10/16 code = U Benzodia Scr) 8:08 PM) [facility] [id number] 02:08:00 Test Item Value Reference Range Interpretation Comments U Cocaine Scr (test Negative *NA*(06/10/16 code = U Cocaine Scr) 8:08 PM) [facility] NghfkovXDCBYR1546-35-10 02:08:00 Test Item Value Reference Range Interpretation Comments LDL (Calculated) (test code = LDL 75 (Calculated)) [facility] AthhtnvLPENFG6135-59-76 02:08:00 Test Item Value Reference Range Interpretation Comments VLDL (test code = VLDL) 27 [facility] QqahwmvQLZNCG6959-75-70 02:08:00 Test Item Value Reference Range Interpretation Comments Chol (test code = Chol) 133 [facility] EyxulsuCXRUMW5509-45-00 02:08:00 Test Item Value Reference Range Interpretation Comments Trig (test code = Trig) 133 [facility] SkmdzuxLBHQOE7368-49-85 02:08:00 Test Item Value Reference Range Interpretation Comments CHD Risk (test code = CHD Risk) 4.29 3.90-5.80 [facility] VywkufaLMSBGB3030-50-20 02:08:00 Test Item Value Reference Range Interpretation Comments HDL (test code = HDL) 31 [facility] [id number] 02:08:00 Test Item Value Reference Range Interpretation Comments UA Urobilinogen (test code = UA <=1.0 mg/dL 0.1-1.0 Urobilinogen) [facility] [id number] 02:08:00 Test Item Value Reference Range Interpretation Comments UA Ketones (test code = UA Negative mg/dL Ketones) [facility] [id number] 02:08:00 Test Item Value Reference Range Interpretation Comments UA Glucose (test code = UA Glucose) 300 mg/dL [facility] [id number] 02:08:00 Test Item Value Reference Range Interpretation Comments UA Protein (test code = UA >=300 mg/dL Protein) [facility] [id number] 02:08:00 Test Item Value Reference Range Interpretation Comments UA pH (test code = UA pH) 6.0 5.0-8.0 [facility] [id number] 02:08:00 Test Item Value Reference Range Interpretation Comments UA Nitrite (test code Negative (06/10/16 8:08 = UA Nitrite) PM) [facility] AND [id number] 02:08:00 Test Item Value Reference Range Interpretation Comments UA Blood (test code = Trace *ABN*(06/10/16 UA Blood) 8:08 PM) [facility] AND [id number] 02:08:00 Test Item Value Reference Range Interpretation Comments UA Bili (test code = Negative *NA*(06/10/16 UA Bili) 8:08 PM) [facility] AND [id number] 02:08:00 Test Item Value Reference Range Interpretation Comments UA Mucus (test code = UA Mucus) Few /LPF [facility] AND [id number] 02:08:00 Test Item Value Reference Range Interpretation Comments UA RBC (test code = 4 See_Comment [Automa rohit message] The UA RBC) system which ge nerated this result transmit rohit reference range : <=2. The reference range was not used to interpr et this result as reji l/abnormal. [facility] AND [id number] 02:08:00 Test Item Value Reference Range Interpretation Comments UA Sq Epi (test code = UA Sq Epi) Few /LPF [facility] AND [id number] 02:08:00 Test Item Value Reference Range Interpretation Comments UA WBC (test code = 5 See_Comment [Automa rohit message] The UA WBC) system which ge nerated this result transmit rohit reference range : <=5. The reference range was not used to interpr et this result as reji l/abnormal. [facility] AND [id number] 02:08:00 Test Item Value Reference Range Interpretation Comments UA Leuk Est (test code Small *ABN*(06/10/16 = UA Leuk Est) 8:08 PM) [facility] AND [id number] 02:08:00 Test Item Value Reference Range Interpretation Comments UA Hyal Cast (test 1 See_Comment [Automat ed message] The code = UA Hyal Cast) system which generated this result transmit rohit reference range : <=2. The reference range was not used to interpr et this result as reji l/abnormal. [facility] AND [id number] 02:08:00 Test Item Value Reference Range Interpretation Comments UA Spec Grav (test code = UA Spec Grav) 1.009 [facility] AND [id number] 02:08:00 Test Item Value Reference Range Interpretation Comments UA Color (test code = Yellow *NA*(06/10/16 UA Color) 8:08 PM) [facility] AND [id number] 02:08:00 Test Item Value Reference Range Interpretation Comments UA Turbidity (test code = Clear (06/10/16 8:08 UA Turbidity) PM) [facility] [id number] 02:08:00 Test Item Value Reference Range Interpretation Comments U Preg (test code = U Negative (06/10/16 8:08 Preg) PM) [facility] [id number] 02:08:00 Test Item Value Reference Range Interpretation Comments U Protein (test code = U Protein) 375.4 [facility] [id number] 02:08:00 Test Item Value Reference Range Interpretation Comments U Prot/Creat (test code = U Prot/Creat) 5.4 [facility] [id number] 02:08:00 Test Item Value Reference Range Interpretation Comments U Creatinine (test code = U Creatinine) 69.80 [facility] [id number] 16:53:00 Test Item Value Reference Range Interpretation Comments BNP (test code = BNP) 1135 [facility] [id number] 16:53:00 Test Item Value Reference Range Interpretation Comments Troponin-I (test code no gt See_Comment [Auto mated message] The = Troponin-I) system which g enerated this result transmit rohit reference range : <=0.40. The reference r leo was not used to interpr et this result as reji l/abnormal. [facility]ownCHE[facility] [id number] 13:02:00 Test Item Value Reference Range Interpretation Comments Lactic Acid WB (test code = Lactic Acid 0.9 0.5-2.2 WB) [facility]ptownBfbmpuoHYTEMSPGEQ1717-28-56 12:29:44 Test Item Value Reference Range Interpretation Comments Valproic Acid Lvl (test code = Valproic 10 50-100 Acid Lvl) [facility]ownPplrkqmKBLLSWLELRKJI2569-44-76 11:21:27 Test Item Value Reference Range Interpretation Comments hCG Tot (test code = hCG Tot) 1 [facility]2015-01-06 11:21:00 Test Item Value Reference Range Interpretation Comments Albumin Lvl (test code = Albumin Lvl) 3.2 3.5-5.0 [facility]2015-01-06 11:21:00 Test Item Value Reference Range Interpretation Comments Total Protein (test code = Total 6.6 6.4-8.4 Protein) [facility]2015-01-06 11:21:00 Test Item Value Reference Range Interpretation Comments Bili Total (test code = Bili Total) 0.6 0.2-1.3 [facility]2015-01-06 11:21:00 Test Item Value Reference Range Interpretation Comments Alk Phos (test code = Alk Phos) 59 39-136 [facility]2015-01-06 11:21:00 Test Item Value Reference Range Interpretation Comments AST (test code = AST) 11 See_Comment [Auto mated message] The system which ge nerated this result transmit rohit reference range : <=37. The reference range was not used to interpr et this result as reji l/abnormal. [facility]2015-01-06 11:21:00 Test Item Value Reference Range Interpretation Comments ALT (test code = ALT) 17 See_Comment [Auto mated message] The system which ge nerated this result transmit rohit reference range : <=65. The reference range was not used to interpr et this result as reji l/abnormal. [facility]2015-01-06 11:21:00 Test Item Value Reference Range Interpretation Comments eGFR (test code = eGFR) 99 [facility]2015-01-06 11:21:00 Test Item Value Reference Range Interpretation Comments Glucose Lvl (test code = Glucose Lvl) 314 70-99 [facility]2015-01-06 11:21:00 Test Item Value Reference Range Interpretation Comments Potassium Lvl (test code = Potassium 3.4 3.5-5.1 Lvl) [facility]2015-01-06 11:21:00 Test Item Value Reference Range Interpretation Comments BUN (test code = BUN) 11 7-22 [facility]2015-01-06 11:21:00 Test Item Value Reference Range Interpretation Comments Creatinine Lvl (test code = Creatinine 0.8 0.5-1.4 Lvl) [facility]2015-01-06 11:21:00 Test Item Value Reference Range Interpretation Comments Sodium Lvl (test code = Sodium Lvl) 134 135-145 [facility]2015-01-06 11:21:00 Test Item Value Reference Range Interpretation Comments Chloride Lvl (test code = Chloride Lvl) 94 95-109 [facility]2015-01-06 11:21:00 Test Item Value Reference Range Interpretation Comments Calcium Lvl (test code = Calcium Lvl) 9.1 8.5-10.5 [facility]2015-01-06 11:21:00 Test Item Value Reference Range Interpretation Comments CO2 (test code = CO2) 24 24-32 [facility]2015-01-06 11:21:00 Test Item Value Reference Range Interpretation Comments A/G Ratio (test code = A/G Ratio) 0.9 0.7-1.6 [facility]2015-01-06 11:21:00 Test Item Value Reference Range Interpretation Comments Globulin (test code = Globulin) 3.4 2.0-4.0 [facility]2015-01-06 11:21:00 Test Item Value Reference Range Interpretation Comments B/C Ratio (test code = B/C Ratio) 14 6-25 [facility]2015-01-06 11:21:00 Test Item Value Reference Range Interpretation Comments AGAP (test code = AGAP) 19.4 10.0-20.0 [facility]2015-01-06 11:21:00 Test Item Value Reference Range Interpretation Comments Lipase Lvl (test code = Lipase Lvl) 81 73-393 [facility]SrkjdyrZWFOXTPCTH7149-32-94 11:21:00 Test Item Value Reference Range Interpretation Comments Large Plt (test code = Large Plt) Slight [facility] ArlingtonKrkihebPEDZJQJDBJ9619-78-38 11:21:00 Test Item Value Reference Range Interpretation Comments Basophils # (test code 0.0 See_Comment [Aut omated message] The = Basophils #) system which generated this result tra nsmitted reference range : <=0.2. The reference r leo was not used to int erpret this result as normal/abnormal . [facility] ArlingtonNqcpcwbDIEPBFHFYW1723-86-98 11:21:00 Test Item Value Reference Range Interpretation Comments Anisocyte (test code = 1+ *ABN*(06/26/14 5:21 Anisocyte) AM) [facility] ArlingtonCpmhgurPWADDGAMME3553-05-14 11:21:00 Test Item Value Reference Range Interpretation Comments Monocytes # (test code 0.6 See_Comment [Aut omated message] The = Monocytes #) system which generated this result tra nsmitted reference range : <=0.8. The reference r leo was not used to int erpret this result as normal/abnormal . [facility] ArlingtonVoloccaPISSLYTCKB6700-55-30 11:21:00 Test Item Value Reference Range Interpretation Comments Eosinophils # (test code 0.1 See_Comment [A utomated message] The = Eosinophils #) system whic h generated this result tra nsmitted reference range : <=0.5. The reference r leo was not used to int erpret this result as normal/abnormal . [facility] ArlingtonSerrmopFWKWSICCRG4226-46-62 11:21:00 Test Item Value Reference Range Interpretation Comments Lymphocytes # (test code = Lymphocytes 2.5 1.0-5.5 #) [facility] ArlingtonDagzkyfHGRPWEYUIY0598-50-47 11:21:00 Test Item Value Reference Range Interpretation Comments Segs (test code = Segs) 63.3 45.0-75.0 [facility] ArlingtonTwukwfkRMJWWBVQKH9593-30-63 11:21:00 Test Item Value Reference Range Interpretation Comments Segs-Bands # (test code = Segs-Bands #) 5.6 1.5-8.1 [facility] ArlingtonDuzcxezKRQZULPFYI8117-41-41 11:21:00 Test Item Value Reference Range Interpretation Comments Basophils (test code = 0.0 See_Comment [Aut omated message] The Basophils) system which ge nerated this result tra nsmitted reference range : <=1.0. The reference r leo was not used to int erpret this result as normal/abnormal . [facility] ArlingtonWizirfaJNKAGIBTMK2802-63-10 11:21:00 Test Item Value Reference Range Interpretation Comments Eosinophils (test code = 0.9 See_Comment [A utomated message] The Eosinophils) system which ge nerated this result tra nsmitted reference range : <=4.0. The reference r leo was not used to int erpret this result as normal/abnormal . [facility] ArlingtonGkrtxvcWMAWPGXGOD8179-31-91 11:21:00 Test Item Value Reference Range Interpretation Comments Monocytes (test code = Monocytes) 7.0 2.0-12.0 [facility] ArlingtonCllhtrtEUKHDRINAW3118-58-77 11:21:00 Test Item Value Reference Range Interpretation Comments Lymphocytes (test code = Lymphocytes) 28.8 20.0-40.0 [facility] ArlingtonVjvwnoiJSFJCRSDCL4756-15-91 11:21:00 Test Item Value Reference Range Interpretation Comments WBC (test code = WBC) 8.8 3.7-10.4 [facility] ArlingtonWgmwkodWGCPPJTECD5742-96-52 11:21:00 Test Item Value Reference Range Interpretation Comments RBC (test code = RBC) 5.19 4.20-5.40 [facility] ArlingtonLfrgwxqIVQIPIYODT4771-09-49 11:21:00 Test Item Value Reference Range Interpretation Comments Hgb (test code = Hgb) 14.4 12.0-16.0 [facility] ArlingtonBcazegmCWHGRJNPSM5924-48-31 11:21:00 Test Item Value Reference Range Interpretation Comments Hct (test code = Hct) 43.1 36.0-48.0 [facility] ArlingtonXqxhhphLKRISBGBIF2871-74-65 11:21:00 Test Item Value Reference Range Interpretation Comments MCV (test code = MCV) 83.1 80.0-98.0 [facility] ArlingtonPakmnwbVEYHWGXYOK1412-83-69 11:21:00 Test Item Value Reference Range Interpretation Comments MCH (test code = MCH) 27.8 pg 27.0-31.0 [facility] ArlingtonPgxobizKRYNWHRZKO7834-55-65 11:21:00 Test Item Value Reference Range Interpretation Comments RDW (test code = RDW) 13.1 11.5-14.5 [facility] ArlingtonBktkvvbZMOWFKMIMT8351-86-20 11:21:00 Test Item Value Reference Range Interpretation Comments MCHC (test code = MCHC) 33.5 32.0-36.0 [facility] ArlingtonOxqbllnORBQTBJWCA5165-28-34 11:21:00 Test Item Value Reference Range Interpretation Comments Platelet (test code = Platelet) 201 133-450 [facility] ArlingtonRnptjlzXEGJRGKZLC8930-65-82 11:21:00 Test Item Value Reference Range Interpretation Comments MPV (test code = MPV) 10.4 7.4-10.4 [facility] LancasterNmpvupmQHRWJFROTE6328-73-59 04:48:55 Test Item Value Reference Range Interpretation Comments UA [place] Yeast (test code = UA Occasional /HPF A [place] Yeast) [facility] CenterYqsizasLJSDHLGMYW9905-17-97 04:48:55 Test Item Value Reference Range Interpretation Comments UA Mucus (test code = UA Mucus) Few /LPF N [facility] CenterWpvemfcTTDHHAAINP5049-08-01 04:48:55 Test Item Value Reference Range Interpretation Comments UA Sq Epi (test code = UA Sq Moderate /LPF A Epi) [facility] CenterCtlelnhTDHKSBJXPK5655-55-79 04:48:55 Test Item Value Reference Range Interpretation Comments Micro? (test code = Performed (04/14/2013 N Micro?) 23:48:55) [facility] CenterXhhuoqfKFRQTRWNSN3145-93-36 04:48:55 Test Item Value Reference Range Interpretation Comments UA WBC (test code = UA WBC) 0-2 /HPF N [facility] CenterBjzqmrvFTDQGUZMAK9451-47-88 04:48:55 Test Item Value Reference Range Interpretation Comments UA Bacteria (test code = UA Occasional /HPF N Bacteria) [facility] CenterGnznnebYZOGXUPDKX6222-15-28 04:48:55 Test Item Value Reference Range Interpretation Comments UA Glucose (test code = UA Glucose) 500 mg/dL A [facility] CenterYrftdrvJZJKRUWSLL9480-81-73 04:48:55 Test Item Value Reference Range Interpretation Comments UA Bili (test code = Negative *NA*(04/14/2013 UA Bili) 23:48:55) [facility] CenterRoosrfzMRGXADKHLV6393-46-16 04:48:55 Test Item Value Reference Range Interpretation Comments UA Ketones (test code = Trace A UA Ketones) *ABN*(04/14/2013 23:48:55) [facility] CenterHwxihvmVAZHFHBHHZ9308-22-88 04:48:55 Test Item Value Reference Range Interpretation Comments UA Blood (test code = Negative (04/14/2013 N UA Blood) 23:48:55) [facility] CenterQpqqbhpVPIRDTBKEV4261-40-41 04:48:55 Test Item Value Reference Range Interpretation Comments UA Urobilinogen (test code = UA 0.2 0.1-1.0 N Urobilinogen) [facility] CenterGpxgrbpREWDIPTMRW5653-99-78 04:48:55 Test Item Value Reference Range Interpretation Comments UA Nitrite (test code Negative (04/14/2013 N = UA Nitrite) 23:48:55) [facility] LancasterFicyjedSTNEBHMPMO8376-54-14 04:48:55 Test Item Value Reference Range Interpretation Comments UA Leuk Est (test Negative (04/14/2013 N code = UA Leuk Est) 23:48:55) [facility] CenterYbteugfRMQPHRDEAH8920-76-94 04:48:55 Test Item Value Reference Range Interpretation Comments UA Turbidity (test code = Clear (04/14/2013 N UA Turbidity) 23:48:55) [facility] CenterRnbqvwpZPGHSCEBSX8701-50-57 04:48:55 Test Item Value Reference Range Interpretation Comments UA Color (test code = Yellow *NA*(04/14/2013 UA Color) 23:48:55) [facility] CenterCslikmhRZZONSIQKA2529-53-04 04:48:55 Test Item Value Reference Range Interpretation Comments UA pH (test code = UA pH) 7.0 1 5.0-8.0 N [facility] CenterFbuhnewXVMFJODAMT8661-42-84 04:48:55 Test Item Value Reference Range Interpretation Comments UA Spec Grav (test code = UA Spec 1.025 1 N Grav) [facility] CenterYyabcpxLSENPYTKWC1852-89-52 04:48:55 Test Item Value Reference Range Interpretation Comments UA Protein (test code = Trace A UA Protein) *ABN*(04/14/2013 23:48:55) [facility] TexasGilivroPCHYYZHXP1191-96-76 04:28:00 Test Item Value Reference Range Interpretation Comments S Preg (test code = S Negative *NA*(04/14/2013 Preg) 23:28:00) [facility] TexasToeeaviGTPHDPPBU2296-56-31 04:28:00 Test Item Value Reference Range Interpretation Comments Lipase Lvl (test code = Lipase Lvl) 233 73-393 N [facility] TexasZtgykwfPOBRNEHGY7980-41-45 04:28:00 Test Item Value Reference Range Interpretation Comments Globulin (test code = Globulin) 4.1 2.0-4.0 H [facility] TexasXslxskfPVZPPITQS6725-34-76 04:28:00 Test Item Value Reference Range Interpretation Comments AGAP (test code = AGAP) 10.5 10.0-20.0 N [facility] TexasHzojybkRKHFOBDVV6354-57-80 04:28:00 Test Item Value Reference Range Interpretation Comments B/C Ratio (test code = B/C Ratio) 6 6-25 N [facility] TexasSfnwzxkPBQJRYOEH5036-72-11 04:28:00 Test Item Value Reference Range Interpretation Comments A/G Ratio (test code = A/G Ratio) 0.7 0.7-1.6 N [facility] TexasMimmonfLYVXNXPIR5860-63-71 04:28:00 Test Item Value Reference Range Interpretation Comments eGFR (test code = eGFR) 130 [facility] TexasRczjgwwKJDOIMVYQ3528-59-49 04:28:00 Test Item Value Reference Range Interpretation Comments Albumin Lvl (test code = Albumin Lvl) 2.9 3.5-5.0 L [facility] TexasFnoxaqyNZDQKRZQL1747-12-12 04:28:00 Test Item Value Reference Range Interpretation Comments ASPARTATE TRANSAMINASE 20 See_Comment N [Aut omated message] (test code = ASPARTATE The s ystem which TRANSAMINASE) generated this result transmitted ref erence range: <=37. Th e reference range was not used to interpr et this result as normal/abnormal . [facility] TexasUilwiwxYFYRAGMGE1369-27-84 04:28:00 Test Item Value Reference Range Interpretation Comments Bili Total (test code = Bili Total) 0.5 0.2-1.3 N [facility] TexasSewcqihMORRJVNJN6782-56-55 04:28:00 Test Item Value Reference Range Interpretation Comments Alk Phos (test code = Alk Phos) 89 39-136 N [facility] TexasDcrajkrVPOPWCRZQ1396-83-59 04:28:00 Test Item Value Reference Range Interpretation Comments ALANINE AMINOTRANSFERASE 11 See_Comment N [A utomated message] (test code = ALANINE The sys tem which AMINOTRANSFERASE) generated this result transmitted ref erence range: <=65. Th e reference range was not used to int erpret this result as normal/abnormal . [facility] TexasCoasnyvJGXAEFXVO3225-71-71 04:28:00 Test Item Value Reference Range Interpretation Comments Creatinine Lvl (test code = Creatinine 0.5 0.5-1.4 N Lvl) [facility] TexasQrzugxxZQCUAMSNX4139-36-05 04:28:00 Test Item Value Reference Range Interpretation Comments BUN (test code = BUN) 3 7-22 L [facility] TexasVgpwtoaMZERONQTW0557-04-42 04:28:00 Test Item Value Reference Range Interpretation Comments Glucose Lvl (test code = Glucose Lvl) 255 70-99 H [facility] TexasYfuifgcPOSSMXOTW8856-15-78 04:28:00 Test Item Value Reference Range Interpretation Comments Total Protein (test code = Total 7.0 6.4-8.4 N Protein) [facility] TexasPaalrdnOSECHQCMR5816-76-41 04:28:00 Test Item Value Reference Range Interpretation Comments Calcium Lvl (test code = Calcium Lvl) 8.7 8.5-10.5 N [facility] TexasTojuiiwGUKFXRXHS3657-18-55 04:28:00 Test Item Value Reference Range Interpretation Comments CO2 (test code = CO2) 29 24-32 N [facility] TexasHsqmrmwPCQXAXHMO8989-08-77 04:28:00 Test Item Value Reference Range Interpretation Comments Chloride Lvl (test code = Chloride Lvl) 104 95-109 N [facility] [facility] TexasUpxetbeQRFDZREDS5693-81-94 04:28:00 Test Item Value Reference Range Interpretation Comments Potassium Lvl (test code = Potassium 3.5 3.5-5.1 N Lvl) [facility] TexasKycpegdTCWRGYAVB1109-48-51 04:28:00 Test Item Value Reference Range Interpretation Comments Sodium Lvl (test code = Sodium Lvl) 140 135-145 N [facility] ArlingtonNlcjxteYVBHFIWIZO7648-42-82 04:28:00 Test Item Value Reference Range Interpretation Comments PROTIME (test code = PROTIME) 12.1 s 12.0-14.7 N [facility] ArlingtonEiuftrjWRPWQABMXR0094-20-38 04:28:00 Test Item Value Reference Range Interpretation Comments aPTT (test code = aPTT) 39.0 s 22.9-35.8 H [facility] ArlingtonBcgjgruXOPLKLZTRA6824-32-04 04:28:00 Test Item Value Reference Range Interpretation Comments INR (test code = INR) 0.90 0.85-1.17 N [facility] ArlingtonAfxnnfzHRBIKVPRWL5577-09-69 04:28:00 Test Item Value Reference Range Interpretation Comments MCH (test code = MCH) 29.4 pg 27.0-31.0 N [facility] ArlingtonObulmzhMNNTMEOOXV7574-45-66 04:28:00 Test Item Value Reference Range Interpretation Comments MCV (test code = MCV) 86.1 81.0-99.0 N [facility] ArlingtonLqdfiabYTRRMXIAOA5724-79-09 04:28:00 Test Item Value Reference Range Interpretation Comments Hct (test code = Hct) 29.4 36.0-48.0 L [facility] ArlingtonSbarxvfOWEQSSYIHF7551-83-88 04:28:00 Test Item Value Reference Range Interpretation Comments RDW (test code = RDW) 14.0 11.5-14.5 N [facility] ArlingtonSlkyqusBNUUEZPHGW6031-30-97 04:28:00 Test Item Value Reference Range Interpretation Comments WBC X 10x3 (test code = WBC X 10x3) 6.2 3.7-10.4 N [facility] ArlingtonReahufnFXQVOGVKCG8221-97-87 04:28:00 Test Item Value Reference Range Interpretation Comments Platelet (test code = Platelet) 178 133-450 N [facility] ArlingtonWmrrwicNOFTOSDZJG6595-50-20 04:28:00 Test Item Value Reference Range Interpretation Comments MCHC (test code = MCHC) 34.1 32.0-36.0 N [facility] ArlingtonRilljphCWZJSCMGVN6293-19-75 04:28:00 Test Item Value Reference Range Interpretation Comments RBC X 10x6 (test code = RBC X 10x6) 3.41 4.20-5.40 L [facility] ArlingtonEbsnnhnAJWCFUCQWH3865-11-57 04:28:00 Test Item Value Reference Range Interpretation Comments Hgb (test code = Hgb) 10.0 12.0-16.0 L [facility] ArlingtonIjkrzreZTZGHVYKOJ5328-31-80 04:28:00 Test Item Value Reference Range Interpretation Comments MPV (test code = MPV) 10.1 7.4-10.4 N [facility] ArlingtonFilqyepODISYLYPMV2503-98-02 04:28:00 Test Item Value Reference Range Interpretation Comments Segs-Bands # (test code = Segs-Bands #) 4.4 1.5-8.1 N [facility] ArlingtonYouzcldUYJCJAWQIS9517-02-36 04:28:00 Test Item Value Reference Range Interpretation Comments Basophils (test code = 0.7 See_Comment N [Aut omated message] The Basophils) system which ge nerated this result tra nsmitted reference range : <=1.0. The reference r leo was not used to int erpret this result as normal/abnormal . [facility] ArlingtonMegqkwhOSSXHIVIYX6855-71-48 04:28:00 Test Item Value Reference Range Interpretation Comments Segs (test code = Segs) 70.7 45.0-75.0 N [facility] ArlingtonXgafhxaWKZUFPPGND5825-23-48 04:28:00 Test Item Value Reference Range Interpretation Comments Monocytes # (test code 0.3 See_Comment N [Aut omated message] The = Monocytes #) system which generated this result tra nsmitted reference range : <=0.8. The reference r leo was not used to int erpret this result as normal/abnormal . [facility] ArlingtonSewmtdyKGMFBKFYYL9976-80-00 04:28:00 Test Item Value Reference Range Interpretation Comments Lymphocytes # (test code = Lymphocytes 1.2 1.0-5.5 N #) [facility] ArlingtonLjfrwfwKRPZFFEAZA1214-08-80 04:28:00 Test Item Value Reference Range Interpretation Comments Monocytes (test code = Monocytes) 4.5 2.0-12.0 N [facility] ArlingtonEtphukzMBHHNGBUHP3904-59-88 04:28:00 Test Item Value Reference Range Interpretation Comments Eosinophils (test code = 4.1 See_Comment H [A utomated message] The Eosinophils) system which ge nerated this result tra nsmitted reference range : <=4.0. The reference r leo was not used to int erpret this result as normal/abnormal . [facility] ArlingtonHgznjarKHKMBJVQZW7116-43-29 04:28:00 Test Item Value Reference Range Interpretation Comments Lymphocytes (test code = Lymphocytes) 20.0 20.0-40.0 N [facility] ArlingtonTshjedxZIWQLIYULZ1812-67-27 04:28:00 Test Item Value Reference Range Interpretation Comments Basophils # (test code 0.0 See_Comment N [Aut omated message] The = Basophils #) system which generated this result tra nsmitted reference range : <=0.2. The reference r leo was not used to int erpret this result as normal/abnormal . [facility] ArlingtonYyupibgDRHLJCFKCG9567-09-45 04:28:00 Test Item Value Reference Range Interpretation Comments Eosinophils # (test code 0.3 See_Comment N [A utomated message] The = Eosinophils #) system whic h generated this result tra nsmitted reference range : <=0.5. The reference r leo was not used to int erpret this result as normal/abnormal . [facility] GLUCOSE HSIRVDZ2383-07-23 01:12:00 Test Item Value Reference Range Interpretation Comments Gluc POC Lifscn (test code = Gluc POC 260 70-99 H Lifscn) [facility] GLUCOSE KSSBJZC5857-92-08 01:12:00 Test Item Value Reference Range Interpretation Comments Comment1 (test code = Comment1) [facility]YglporjBANQYVAOLU5070-95-87 23:40:00 Test Item Value Reference Range Interpretation Comments UA Protein (test code = Trace A UA Protein) *ABN*(03/14/2012 18:40:00) [facility] CenterNnjiovkBXYLVHVGZU5630-59-06 23:40:00 Test Item Value Reference Range Interpretation Comments UA pH (test code = UA pH) 6.0 1 5.0-8.0 N [facility] CenterKrbogneZVPHEASHOK8592-35-31 23:40:00 Test Item Value Reference Range Interpretation Comments UA Ketones (test code = >=80 mg/dL UA Ketones) *NA*(03/14/2012 18:40:00) [facility] CenterBxzeufaORWPQXRXZB9958-49-79 23:40:00 Test Item Value Reference Range Interpretation Comments UA Glucose (test code = >=1000 mg/dL A UA Glucose) *ABN*(03/14/2012 18:40:00) [facility] CenterRwcvofrEUYPVBLYIS2743-32-99 23:40:00 Test Item Value Reference Range Interpretation Comments UA Blood (test code = Negative (03/14/2012 N UA Blood) 18:40:00) [facility] CenterFhikiugRJOPKZMWZR0545-99-66 23:40:00 Test Item Value Reference Range Interpretation Comments UA Nitrite (test code Negative (03/14/2012 N = UA Nitrite) 18:40:00) [facility] CenterQuvnxweOKMXBLEAIE2898-19-41 23:40:00 Test Item Value Reference Range Interpretation Comments UA Urobilinogen (test code = UA 0.2 0.1-1.0 N Urobilinogen) [facility] CenterUiywmbaNHZMMGKJNQ5053-05-84 23:40:00 Test Item Value Reference Range Interpretation Comments UA Leuk Est (test Negative (03/14/2012 N code = UA Leuk Est) 18:40:00) [facility] CenterZwnjjfaIEHUAQUTVY1995-94-54 23:40:00 Test Item Value Reference Range Interpretation Comments UA Bili (test code = Negative *NA*(03/14/2012 UA Bili) 18:40:00) [facility] CenterEnilszhBNBJVGXBQH5257-84-72 23:40:00 Test Item Value Reference Range Interpretation Comments UA Turbidity (test code = Clear (03/14/2012 N UA Turbidity) 18:40:00) [facility]RgbozssGONJLPWKDJ2997-40-53 23:40:00 Test Item Value Reference Range Interpretation Comments UA Color (test code = Yellow *NA*(03/14/2012 UA Color) 18:40:00) [facility] CenterVrhxzosBQHQHTTPIX9383-99-63 23:40:00 Test Item Value Reference Range Interpretation Comments UA Spec Grav (test >=1.030 A code = UA Spec Grav) *ABN*(03/14/2012 18:40:00) [facility] CenterRgzhzwcZVYEEEQASF1950-50-68 23:40:00 Test Item Value Reference Range Interpretation Comments UA Sq Epi (test code Occasional /LPF N = UA Sq Epi) (03/14/2012 18:40:00) [facility] CenterUnpcjrjYXIHWYSAVM2158-95-68 23:40:00 Test Item Value Reference Range Interpretation Comments UA WBC (test code = UA 3-5 /HPF (03/14/2012 N WBC) 18:40:00) [facility] CenterDdkjxkfJZPDJAQSRM9560-75-93 23:40:00 Test Item Value Reference Range Interpretation Comments UA Bacteria (test code Occasional /HPF N = UA Bacteria) (03/14/2012 18:40:00) [facility] TexasAarlpayECARLINES8241-70-61 22:50:00 Test Item Value Reference Range Interpretation Comments S Preg (test code = S Negative *NA*(03/14/2012 Preg) 17:50:00) [facility] TexasGoypwhjENWFPZMFQ6129-07-69 22:50:00 Test Item Value Reference Range Interpretation Comments Lipase Lvl (test code = Lipase Lvl) 45 73-393 L [facility] TexasGppqjinLYSYRSOKF5034-71-89 22:50:00 Test Item Value Reference Range Interpretation Comments A/G Ratio (test code = A/G Ratio) 1.2 0.7-1.6 N [facility] TexasXabulurCFZJWSSKJ8121-15-90 22:50:00 Test Item Value Reference Range Interpretation Comments Globulin (test code = Globulin) 3.8 2.0-4.0 N [facility] TexasTcgtbftLBMWPKRUA5564-51-56 22:50:00 Test Item Value Reference Range Interpretation Comments B/C Ratio (test code = B/C Ratio) 21 6-25 N [facility] TexasZmgqsxyOEKMYEVTR8678-38-92 22:50:00 Test Item Value Reference Range Interpretation Comments AGAP (test code = AGAP) 16.8 10.0-20.0 N [facility] TexasDwjcwshMRAXEBUKZ5596-39-27 22:50:00 Test Item Value Reference Range Interpretation Comments Bili Total (test code = Bili Total) 1.1 0.2-1.3 N [facility] TexasIkbpdxoQEDAPNKHX6324-45-79 22:50:00 Test Item Value Reference Range Interpretation Comments Total Protein (test code = Total 8.2 6.4-8.4 N Protein) [facility] TexasNmbpqktHCMXFXFYC1900-57-14 22:50:00 Test Item Value Reference Range Interpretation Comments Potassium Lvl (test code = Potassium 3.8 3.5-5.1 N Lvl) [facility] TexasQgjwdymQVJFVJCBC9955-72-97 22:50:00 Test Item Value Reference Range Interpretation Comments Creatinine Lvl (test code = Creatinine 0.7 0.5-1.4 N Lvl) [facility] TexasCouumsjRQJDDUXRK0744-55-84 22:50:00 Test Item Value Reference Range Interpretation Comments Sodium Lvl (test code = Sodium Lvl) 139 135-145 N [facility] TexasZksgqyyYPHMXAHTQ0850-31-56 22:50:00 Test Item Value Reference Range Interpretation Comments Chloride Lvl (test code = Chloride Lvl) 99 95-109 N [facility] TexasPmhygyoEXRJJWWIS3208-35-95 22:50:00 Test Item Value Reference Range Interpretation Comments CO2 (test code = CO2) 27 24-32 N [facility] TexasVdtuveoBTFIJAQYV7896-94-46 22:50:00 Test Item Value Reference Range Interpretation Comments Glucose Lvl (test code = Glucose Lvl) 301 70-99 H [facility] TexasNbfwubzDPMZHLTXU7699-11-99 22:50:00 Test Item Value Reference Range Interpretation Comments BUN (test code = BUN) 15 7-22 N [facility] TexasQptfttcNSVXJVNMM5073-73-74 22:50:00 Test Item Value Reference Range Interpretation Comments ALT (test code = ALT) 24 See_Comment N [Auto mated message] The system which ge nerated this result transmit rohit reference range : <=65. The reference range was not used to interpr et this result as reji l/abnormal. [facility] TexasMluxrseXTGSISTIH0511-74-38 22:50:00 Test Item Value Reference Range Interpretation Comments AST (test code = AST) 20 See_Comment N [Auto mated message] The system which ge nerated this result transmit rhoit reference range : <=37. The reference range was not used to interpr et this result as reji l/abnormal. [facility] TexasSexdvpbGUYCIDHOB5835-72-69 22:50:00 Test Item Value Reference Range Interpretation Comments Alk Phos (test code = Alk Phos) 67 39-136 N [facility] TexasBgjolgwBXVGSYIHQ6293-79-46 22:50:00 Test Item Value Reference Range Interpretation Comments Albumin Lvl (test code = Albumin Lvl) 4.4 3.5-5.0 N [facility] TexasBpkvertUVYWXAXCL4454-32-30 22:50:00 Test Item Value Reference Range Interpretation Comments Calcium Lvl (test code = Calcium Lvl) 9.9 8.5-10.5 N [facility] ArlingtonWsnxecnRRNQRSVJYB4547-29-64 22:50:00 Test Item Value Reference Range Interpretation Comments MPV (test code = MPV) 11.8 7.4-10.4 H [facility] ArlingtonIlgudlaDVNAXWFFWY7434-86-77 22:50:00 Test Item Value Reference Range Interpretation Comments MCHC (test code = MCHC) 35.9 32.0-36.0 N [facility] ArlingtonFmbwsonYTZACMTQOA2979-56-88 22:50:00 Test Item Value Reference Range Interpretation Comments MCH (test code = MCH) 31.2 pg 27.0-31.0 H [facility] ArlingtonWfnnwfzKBQJIQOUNZ1738-27-99 22:50:00 Test Item Value Reference Range Interpretation Comments Platelet (test code = Platelet) 189 133-450 N [facility] ArlingtonGlkcytqOTSCDERENI9475-28-17 22:50:00 Test Item Value Reference Range Interpretation Comments RDW (test code = RDW) 13.1 11.5-14.5 N [facility] ArlingtonWmowgzwMTOSQZJWJG9660-52-71 22:50:00 Test Item Value Reference Range Interpretation Comments Hct (test code = Hct) 40.7 36.0-48.0 N [facility] ArlingtonRqjtkwoHEKRMGJTNR6790-76-63 22:50:00 Test Item Value Reference Range Interpretation Comments Hgb (test code = Hgb) 14.6 12.0-16.0 N [facility] ArlingtonGiikwdgNLJIZKFEQX1991-20-72 22:50:00 Test Item Value Reference Range Interpretation Comments MCV (test code = MCV) 87.0 81.0-99.0 N [facility] ArlingtonYlqwsvxCQSXQTJJLT6515-99-87 22:50:00 Test Item Value Reference Range Interpretation Comments WBC (test code = WBC) 11.7 3.7-10.4 H [facility] ArlingtonZirzhwjPYFWYRCAXG4401-85-12 22:50:00 Test Item Value Reference Range Interpretation Comments RBC (test code = RBC) 4.68 4.20-5.40 N [facility] ArlingtonJuxanjeZWMXLXZQRS7984-46-09 22:50:00 Test Item Value Reference Range Interpretation Comments Basophils # (test code 0.0 See_Comment N [Aut omated message] The = Basophils #) system which generated this result tra nsmitted reference range : <=0.2. The reference r leo was not used to int erpret this result as normal/abnormal . [facility] ArlingtonOhuzgelCBCGRECERH1067-53-81 22:50:00 Test Item Value Reference Range Interpretation Comments Basophils (test code = 0.2 See_Comment N [Aut omated message] The Basophils) system which ge nerated this result tra nsmitted reference range : <=1.0. The reference r leo was not used to int erpret this result as normal/abnormal . [facility] ArlingtonXgckthxRCXNQXNPIP1122-04-83 22:50:00 Test Item Value Reference Range Interpretation Comments Eosinophils # (test code 0.0 See_Comment N [A utomated message] The = Eosinophils #) system whic h generated this result tra nsmitted reference range : <=0.5. The reference r leo was not used to int erpret this result as normal/abnormal . [facility] ArlingtonRibzipgIOTLYTJBWL8345-08-62 22:50:00 Test Item Value Reference Range Interpretation Comments Monocytes # (test code 0.4 See_Comment N [Aut omated message] The = Monocytes #) system which generated this result tra nsmitted reference range : <=0.8. The reference r leo was not used to int erpret this result as normal/abnormal . [facility] ArlingtonPteusxlMUQALSLPCF2367-43-64 22:50:00 Test Item Value Reference Range Interpretation Comments Segs-Bands # (test code = Segs-Bands #) 10.6 1.5-8.1 H [facility] ArlingtonLntjehqWTSTPBODDX2422-05-54 22:50:00 Test Item Value Reference Range Interpretation Comments Lymphocytes # (test code = Lymphocytes 0.7 1.0-5.5 L #) [facility] ArlingtonBumqtguJFCSYBZLIM4639-59-99 22:50:00 Test Item Value Reference Range Interpretation Comments Monocytes (test code = Monocytes) 3.4 2.0-12.0 N [facility] ArlingtonKlcmsntWOBHQKMPHM6652-17-20 22:50:00 Test Item Value Reference Range Interpretation Comments Plt Morph (test code = Normal (03/14/2012 N Plt Morph) 17:50:00) [facility] ArlingtonZpwagcnLATSUCYIEW2622-12-70 22:50:00 Test Item Value Reference Range Interpretation Comments Lymphocytes (test code = Lymphocytes) 6.0 20.0-40.0 L [facility] ArlingtonGvpvnyeUXMQRVKLIC0488-81-13 22:50:00 Test Item Value Reference Range Interpretation Comments Eosinophils (test code = 0.0 See_Comment N [A utomated message] The Eosinophils) system which ge nerated this result tra nsmitted reference range : <=4.0. The reference r leo was not used to int erpret this result as normal/abnormal . [facility] ArlingtonGuxalboORFYWGEFDH4589-87-52 22:50:00 Test Item Value Reference Range Interpretation Comments Segs (test code = Segs) 90.4 45.0-75.0 H [facility] ArlingtonKpnelrqCRNUEVJKMX4954-98-35 22:50:00 Test Item Value Reference Range Interpretation Comments RBC Morph (test code = Normal (03/14/2012 N RBC Morph) 17:50:00) [facility] GLUCOSE GIICBQE6007-21-80 23:43:00 Test Item Value Reference Range Interpretation Comments Gluc POC Lifscn (test code = Gluc POC 167 70-99 H Lifscn) [facility] GLUCOSE ECSFTLD9992-78-41 23:43:00 Test Item Value Reference Range Interpretation Comments Comment1 (test code = Comment1) Notify RN/MD [facility] GLUCOSE VDLOEGX2083-12-86 23:43:00 Test Item Value Reference Range Interpretation Comments Comment2 (test code = Comment2) Sliding Scale [facility] GLUCOSE BXTWCTN5243-29-59 17:40:00 Test Item Value Reference Range Interpretation Comments Gluc POC Lifscn (test code = Gluc POC 189 70-99 H Lifscn) [facility] GLUCOSE GSBKFVI3986-12-60 17:40:00 Test Item Value Reference Range Interpretation Comments Comment1 (test code = Comment1) [facility] XVEXTXE5346-70-59 17:40:00 Test Item Value Reference Range Interpretation Comments Comment2 (test code = Comment2) Sliding Scale [facility] GLUCOSE ZQANSMZ0345-52-06 13:34:00 Test Item Value Reference Range Interpretation Comments Comment2 (test code = Comment2) Sliding Scale [facility] GLUCOSE OEVJAKT3182-42-71 13:34:00 Test Item Value Reference Range Interpretation Comments Gluc POC Lifscn (test code = Gluc POC 110 70-99 H Lifscn) [facility] GLUCOSE XHWQBUR2026-34-41 13:34:00 Test Item Value Reference Range Interpretation Comments Comment1 (test code = Comment1) [facility] CenterMkfbgatAUCPUOHLZ8937-26-26 00:00:00 Test Item Value Reference Range Interpretation Comments U Preg (test code = U Negative (11/28/2011 N Preg) 19:00:00) [facility]ZkxzintMEPGAOEDOF8073-14-49 00:00:00 Test Item Value Reference Range Interpretation Comments Micro? (test code = Performed (11/28/2011 N Micro?) 19:00:00) [facility]ptownWyolpxpJWQZHMBBBR7191-49-63 00:00:00 Test Item Value Reference Range Interpretation Comments UA Sq Epi (test code Occasional /LPF N = UA Sq Epi) (11/28/2011 19:00:00) [facility] UptownUleeqksRHWSUPUILC2397-05-60 00:00:00 Test Item Value Reference Range Interpretation Comments UA RBC (test None Seen See_Comment N [Automated mes pastor] code = UA RBC) (11/28/2011 The system ich 19:00:00) generated this result transmitted ref erence range: <=2. The reference range was not used to int erpret this result as normal/abnormal . [facility] CenterKmuxicjYOGNKUSQSV0319-37-33 00:00:00 Test Item Value Reference Range Interpretation Comments UA WBC (test code Occasional See_Comment [Automate d message] The = UA WBC) system which ge nerated this result tra nsmitted reference range : <=5. The reference range was not used to interpr et this result as normal/abnormal . [facility] CenterKlwwcnxNCIXUXFVVO4153-78-16 00:00:00 Test Item Value Reference Range Interpretation Comments UA Protein (test code Negative mg/dL N = UA Protein) (11/28/2011 19:00:00) [facility] CenterJdcmqyfUWTNMDOKSW4297-16-86 00:00:00 Test Item Value Reference Range Interpretation Comments UA pH (test code = UA pH) 7.0 1 5.0-8.0 N [facility] CenterBxmhuzpLIBDBGJLSH9240-78-52 00:00:00 Test Item Value Reference Range Interpretation Comments UA Spec Grav (test code = UA Spec 1.020 1 N Grav) [facility] CenterJiljcjsRFQYOUUOFX1809-06-72 00:00:00 Test Item Value Reference Range Interpretation Comments UA Turbidity (test code = Clear (11/28/2011 N UA Turbidity) 19:00:00) [facility] CenterDnnzgfgNMIGTYNHWH2695-79-88 00:00:00 Test Item Value Reference Range Interpretation Comments UA Color (test code = Yellow *NA*(11/28/2011 UA Color) 19:00:00) [facility] CenterDitjzqtUSADXFHFSO6261-99-31 00:00:00 Test Item Value Reference Range Interpretation Comments UA Urobilinogen (test code = UA 0.2 0.1-1.0 N Urobilinogen) [facility] CenterLwyogtkUNTWWSTGJU8341-00-32 00:00:00 Test Item Value Reference Range Interpretation Comments UA Blood (test code = Negative (11/28/2011 N UA Blood) 19:00:00) [facility] CenterTkcijgqBZEPBYSQID6935-38-86 00:00:00 Test Item Value Reference Range Interpretation Comments UA Bili (test code = Negative *NA*(11/28/2011 UA Bili) 19:00:00) [facility] CenterGqqmhglAGGAGJWASH3400-84-45 00:00:00 Test Item Value Reference Range Interpretation Comments UA Ketones (test code = >=80 mg/dL A UA Ketones) *ABN*(11/28/2011 19:00:00) [facility] CenterChkwwqpNEJUKGSDYE3825-63-69 00:00:00 Test Item Value Reference Range Interpretation Comments UA Glucose (test code = >=1000 mg/dL A UA Glucose) *ABN*(11/28/2011 19:00:00) [facility] CenterSbrkccnADILARVIGR8765-08-29 00:00:00 Test Item Value Reference Range Interpretation Comments UA Nitrite (test code Negative (11/28/2011 N = UA Nitrite) 19:00:00) [facility]ownIdshuquPGJVGUBJFS5218-26-56 00:00:00 Test Item Value Reference Range Interpretation Comments UA Leuk Est (test Negative (11/28/2011 N code = UA Leuk Est) 19:00:00) [facility] U[facility]ownEnddvkrYSNTBWWCU2529-12-83 20:41:00 Test Item Value Reference Range Interpretation Comments pO2 Roberth (test code = pO2 Roberth) 60 20-49 H [facility] TexasMbasrwkVSYJPMWER8674-75-38 20:41:00 Test Item Value Reference Range Interpretation Comments pCO2 Roberth (test code = pCO2 Roberth) 41 38-52 N [facility] TexasRugkcmvBYGJZGHGK4686-65-00 20:41:00 Test Item Value Reference Range Interpretation Comments pH Roberth (test code = pH Roberth) 7.45 7.28-7.42 H [facility] TexasAlbitetZBVDYDMUM2018-02-63 20:41:00 Test Item Value Reference Range Interpretation Comments Temp Roberth (test code = Temp Roberth) 37.0 [facility] TexasYfbvsnwAANBZCKAJ4267-42-65 20:41:00 Test Item Value Reference Range Interpretation Comments O2 Sat Roberth (test code = O2 Sat Roberth) 92.0 40.0-70.0 H [facility] TexasYqooytoIVNALRIIP2273-78-89 20:41:00 Test Item Value Reference Range Interpretation Comments BE Roberth (test code = 4 See_Comment H [Automa rohit message] The BE Roberth) system which ge nerated this result transmit rohit reference range : <=2. The reference range was not used to interpr et this result as reji l/abnormal. [facility] TexasPmnmdqeKTIIKGYFX9123-92-09 20:41:00 Test Item Value Reference Range Interpretation Comments HCO3 Roberth (test code = HCO3 Roberth) 28.5 22.0-26.0 H [facility] TexasRdrkoaaUVRZJUZTV7166-93-77 20:00:00 Test Item Value Reference Range Interpretation Comments Lactic Acid Lvl (test code = Lactic 1.6 0.5-2.2 N Acid Lvl) [facility] TexasUufipjiSNCADUGPU0562-32-06 20:00:00 Test Item Value Reference Range Interpretation Comments Lipase Lvl (test code = Lipase Lvl) 125 73-393 N [facility] TexasUajfkkvJPXPWVGSX0343-63-10 20:00:00 Test Item Value Reference Range Interpretation Comments Albumin Lvl (test code = Albumin Lvl) 4.2 3.5-5.0 N [facility] TexasAyzahgpHPCKTAWXZ6421-41-49 20:00:00 Test Item Value Reference Range Interpretation Comments CO2 (test code = CO2) 23 24-32 L [facility] TexasUqiwtxcXQARRUGLW6079-51-96 20:00:00 Test Item Value Reference Range Interpretation Comments Chloride Lvl (test code = Chloride Lvl) 98 95-109 N [facility] TexasQacqwgrHATBDMIAK7494-58-07 20:00:00 Test Item Value Reference Range Interpretation Comments Potassium Lvl (test code = Potassium 3.8 3.5-5.1 N Lvl) [facility] TexasHlfooixAAWVHMQEI3608-24-03 20:00:00 Test Item Value Reference Range Interpretation Comments Sodium Lvl (test code = Sodium Lvl) 138 135-145 N [facility] TexasErccglbLPZDHLBOD8078-34-55 20:00:00 Test Item Value Reference Range Interpretation Comments Creatinine Lvl (test code = Creatinine 0.7 0.5-1.4 N Lvl) [facility] TexasHnckycaGQWMCSYPU4221-71-63 20:00:00 Test Item Value Reference Range Interpretation Comments BUN (test code = BUN) 9 7-22 N [facility] TexasJdrsumtRFRNNASZT1219-46-84 20:00:00 Test Item Value Reference Range Interpretation Comments Glucose Lvl (test code = Glucose Lvl) 269 70-99 H [facility] TexasQsuknqoOHXURLUMJ4942-41-49 20:00:00 Test Item Value Reference Range Interpretation Comments B/C Ratio (test code = B/C Ratio) 13 6-25 N [facility] TexasUdcqvmjQHPLMRGDK6534-45-24 20:00:00 Test Item Value Reference Range Interpretation Comments AGAP (test code = AGAP) 20.8 10.0-20.0 H [facility] TexasYuzmtqfXZWDOUVZL1799-98-86 20:00:00 Test Item Value Reference Range Interpretation Comments Calcium Lvl (test code = Calcium Lvl) 9.3 8.5-10.5 N [facility] TexasOyiuvssRDYIOJVVB4176-88-84 20:00:00 Test Item Value Reference Range Interpretation Comments Total Protein (test code = Total 6.7 6.4-8.4 N Protein) [facility] TexasGlqlvgqLIDEVCFLL5494-81-44 20:00:00 Test Item Value Reference Range Interpretation Comments A/G Ratio (test code = A/G Ratio) 1.7 0.7-1.6 H [facility] TexasXpwgkgdRILZJEFRL1676-37-33 20:00:00 Test Item Value Reference Range Interpretation Comments Globulin (test code = Globulin) 2.5 2.0-4.0 N [facility] TexasLbqxdtyNZOSZNUOQ7528-97-00 20:00:00 Test Item Value Reference Range Interpretation Comments AST (test code = AST) 18 See_Comment N [Auto mated message] The system which ge nerated this result transmit rohit reference range : <=37. The reference range was not used to interpr et this result as reji l/abnormal. [facility] TexasXgbmbfxQRLMWFXXJ8269-41-00 20:00:00 Test Item Value Reference Range Interpretation Comments Alk Phos (test code = Alk Phos) 62 39-136 N [facility] TexasGmqoaiyBBTJAHAAN2762-58-84 20:00:00 Test Item Value Reference Range Interpretation Comments ALT (test code = ALT) 32 See_Comment N [Auto mated message] The system which ge nerated this result transmit rohit reference range : <=65. The reference range was not used to interpr et this result as reji l/abnormal. [facility] TexasKxaickqWQCLEZYLA1725-53-33 20:00:00 Test Item Value Reference Range Interpretation Comments Bili Total (test code = Bili Total) 0.7 0.2-1.3 N [facility] ArlingtonSmiatumRXVATHJQBA1362-40-80 20:00:00 Test Item Value Reference Range Interpretation Comments Anisocyte (test code = 1+ *ABN*(11/28/2011 A Anisocyte) 15:00:00) [facility] ArlingtonBvzrkdwENHRNSTCBH2460-16-26 20:00:00 Test Item Value Reference Range Interpretation Comments Monocytes # (test code 0.1 See_Comment N [Aut omated message] The = Monocytes #) system which generated this result tra nsmitted reference range : <=0.8. The reference r leo was not used to int erpret this result as normal/abnormal . [facility] ArlingtonMqqeuyiFBNOOXDQNP0225-12-73 20:00:00 Test Item Value Reference Range Interpretation Comments Eosinophils # (test code 0.0 See_Comment N [A utomated message] The = Eosinophils #) system whic h generated this result tra nsmitted reference range : <=0.5. The reference r leo was not used to int erpret this result as normal/abnormal . [facility] ArlingtonRvbeqksPSULOCNXJW3359-27-64 20:00:00 Test Item Value Reference Range Interpretation Comments Basophils # (test code 0.0 See_Comment N [Aut omated message] The = Basophils #) system which generated this result tra nsmitted reference range : <=0.2. The reference r leo was not used to int erpret this result as normal/abnormal . [facility] ArlingtonLyukymrZTDJEZIGMK0689-43-93 20:00:00 Test Item Value Reference Range Interpretation Comments Neut Vac (test code = Slight *ABN*(11/28/2011 A Neut Vac) 15:00:00) [facility] ArlingtonKrqpkphPSORDZHUDH9623-80-67 20:00:00 Test Item Value Reference Range Interpretation Comments Large Plt (test code = Slight *ABN*(11/28/2011 A Large Plt) 15:00:00) [facility] ArlingtonKnnxoczESCVWCGOMR1356-41-78 20:00:00 Test Item Value Reference Range Interpretation Comments Segs-Bands # (test code = Segs-Bands #) 5.7 1.5-8.1 N [facility] ArlingtonBwyrkekGZNWMFIWQX6584-81-06 20:00:00 Test Item Value Reference Range Interpretation Comments Lymphocytes # (test code = Lymphocytes 0.8 1.0-5.5 L #) [facility] ArlingtonJaoandaYFDOKPDSMZ4871-70-96 20:00:00 Test Item Value Reference Range Interpretation Comments Eosinophils (test code = 0.2 See_Comment N [A utomated message] The Eosinophils) system which ge nerated this result tra nsmitted reference range : <=4.0. The reference r leo was not used to int erpret this result as normal/abnormal . [facility] ArlingtonIzzfdzlSBMZCXSXEY3711-89-51 20:00:00 Test Item Value Reference Range Interpretation Comments Basophils (test code = 0.0 See_Comment N [Aut omated message] The Basophils) system which ge nerated this result tra nsmitted reference range : <=1.0. The reference r leo was not used to int erpret this result as normal/abnormal . [facility] ArlingtonYyfuyepNJGPESNTRL4134-18-24 20:00:00 Test Item Value Reference Range Interpretation Comments Monocytes (test code = Monocytes) 1.9 2.0-12.0 L [facility] ArlingtonAwsurpeTQRYFNRQKB8001-97-09 20:00:00 Test Item Value Reference Range Interpretation Comments Segs (test code = Segs) 86.2 45.0-75.0 H [facility] ArlingtonRtjoawuXVOVQSRRHU4922-07-17 20:00:00 Test Item Value Reference Range Interpretation Comments Lymphocytes (test code = Lymphocytes) 11.7 20.0-40.0 L [facility] ArlingtonLqyzxdfTNKGUOXOJS1530-37-01 20:00:00 Test Item Value Reference Range Interpretation Comments MPV (test code = MPV) 10.8 7.4-10.4 H [facility] ArlingtonIrwjckrSRAFWIXYHG1669-18-58 20:00:00 Test Item Value Reference Range Interpretation Comments Platelet (test code = Platelet) 161 133-450 N [facility] ArlingtonZvwjvukXSAXLMGHAM2052-08-06 20:00:00 Test Item Value Reference Range Interpretation Comments MCHC (test code = MCHC) 35.6 32.0-36.0 N [facility] ArlingtonQckoccjDZZAAZBHNY7673-39-25 20:00:00 Test Item Value Reference Range Interpretation Comments RDW (test code = RDW) 12.4 11.5-14.5 N [facility] ArlingtonTygpnsqKCTSBFZYAC1984-09-72 20:00:00 Test Item Value Reference Range Interpretation Comments MCH (test code = MCH) 30.7 pg 27.0-31.0 N [facility] ArlingtonXkcpkelEQSLHSKTLT9687-03-29 20:00:00 Test Item Value Reference Range Interpretation Comments MCV (test code = MCV) 86.1 81.0-99.0 N [facility] ArlingtonIikifghRYAAIMRVUL4715-36-99 20:00:00 Test Item Value Reference Range Interpretation Comments Hct (test code = Hct) 33.6 36.0-48.0 L [facility] ArlingtonLgwbklnTPZDPLOGPT5526-73-02 20:00:00 Test Item Value Reference Range Interpretation Comments Hgb (test code = Hgb) 12.0 12.0-16.0 N [facility] ArlingtonZessnibFHORQRWJZM6795-10-16 20:00:00 Test Item Value Reference Range Interpretation Comments RBC (test code = RBC) 3.90 4.20-5.40 L [facility] ArlingtonGeooxicXQPQFCHLXT8178-45-45 20:00:00 Test Item Value Reference Range Interpretation Comments WBC (test code = WBC) 6.6 3.7-10.4 N [facility] TexasSpwfdraXSEWJOKYE5379-60-16 19:51:00 Test Item Value Reference Range Interpretation Comments UDS Note (test code = See Note UDS Note) 5*NA*(11/28/2011 14:51:00) [facility] TexasQkandpyOESZJCWIB5050-48-01 19:51:00 Test Item Value Reference Range Interpretation Comments U Phencyc Scr (test Negative code = U Phencyc Scr) *NA*(11/28/2011 14:51:00) [facility] TexasGsyttclRJSTMLFTL4549-48-63 19:51:00 Test Item Value Reference Range Interpretation Comments U Kelly Scr (test code Negative *NA*(11/28/2011 = U Kelly Scr) 14:51:00) [facility] TexasAropqwsEUHLHKFUV2282-85-10 19:51:00 Test Item Value Reference Range Interpretation Comments U Amph Scr (test code Negative *NA*(11/28/2011 = U Amph Scr) 14:51:00) [facility] TexasAufqtlhDMTJNOYYH7377-11-31 19:51:00 Test Item Value Reference Range Interpretation Comments U Opiate Scr (test Negative code = U Opiate Scr) *NA*(11/28/2011 14:51:00) [facility] TexasCyibhttNWFXOVIZH0228-62-64 19:51:00 Test Item Value Reference Range Interpretation Comments U Cocaine Scr (test Negative code = U Cocaine Scr) *NA*(11/28/2011 14:51:00) [facility] TexasWjnogkhQSXPMSIGC3700-84-10 19:51:00 Test Item Value Reference Range Interpretation Comments U Cannab Scr (test Negative code = U Cannab Scr) *NA*(11/28/2011 14:51:00) [facility] TexasQhbpkucLEYSGHVUG1214-05-45 19:51:00 Test Item Value Reference Range Interpretation Comments U Benzodia Scr (test Negative code = U Benzodia Scr) *NA*(11/28/2011 14:51:00) [facility] GLUCOSE PNTMKOQ9173-98-73 16:20:00 Test Item Value Reference Range Interpretation Comments Comment1 (test code = Comment1) Ravi MAYS/ [facility] GLUCOSE KJZBPZE5171-34-62 16:20:00 Test Item Value Reference Range Interpretation Comments Gluc POC Lifscn (test code = Gluc POC 328 70-99 H Lifscn) [facility] TexasLlvjmatRQGZRIBXL9215-36-64 15:30:00 Test Item Value Reference Range Interpretation Comments U Preg (test code = U Negative (09/18/2011 N Preg) 10:30:00) [facility] LancasterFvxkeeeWUFVBMCSCV7033-32-83 15:30:00 Test Item Value Reference Range Interpretation Comments UA WBC (test code = UA None Seen (09/18/2011 N WBC) 10:30:00) [facility]WhxfnuhFNBMUVYCZN0427-66-44 15:30:00 Test Item Value Reference Range Interpretation Comments UA RBC (test None Seen See_Comment N [Automated mes pastor] code = UA RBC) (09/18/2011 The system [employer] ich 10:30:00) generated this result transmitted ref erence range: <=2. The reference range was not used to int erpret this result as normal/abnormal . [facility] CenterAhrlhxxXZYPVIMZQW7540-21-08 15:30:00 Test Item Value Reference Range Interpretation Comments UA Bacteria (test code = None Seen (09/18/2011 N UA Bacteria) 10:30:00) [facility] CenterIeywmzvVEIRGIVLLS0495-13-02 15:30:00 Test Item Value Reference Range Interpretation Comments UA Amorph Destiny (test Few /HPF A code = UA Amorph Destiny) *ABN*(09/18/2011 10:30:00) [facility] LancasterXfpstbpLWAGXBGTDT1054-63-79 15:30:00 Test Item Value Reference Range Interpretation Comments Micro? (test code = Performed (09/18/2011 N Micro?) 10:30:00) [facility] CenterAkuvhqmVCTTNRJMIB1944-31-98 15:30:00 Test Item Value Reference Range Interpretation Comments UA Sq Epi (test code = Rare /LPF (09/18/2011 N UA Sq Epi) 10:30:00) [facility] LancasterHzmpaadBUCIJYWLAC1706-54-15 15:30:00 Test Item Value Reference Range Interpretation Comments UA Ketones (test code = 15 mg/dL A UA Ketones) *ABN*(09/18/2011 10:30:00) [facility] LancasterVjyjulhUEMKWKXLTY7715-21-64 15:30:00 Test Item Value Reference Range Interpretation Comments UA Glucose (test code = >=1000 mg/dL A UA Glucose) *ABN*(09/18/2011 10:30:00) [facility] LancasterYosisqvDZLUTWLBRX6058-94-76 15:30:00 Test Item Value Reference Range Interpretation Comments UA Protein (test code = Trace A UA Protein) *ABN*(09/18/2011 10:30:00) [facility] LancasterVgzkwwwDZIXVRSBEC8097-47-10 15:30:00 Test Item Value Reference Range Interpretation Comments UA Urobilinogen (test code = UA 0.2 0.1-1.0 N Urobilinogen) [facility] LancasterUnkxbmjRITAXCJPOL1924-54-18 15:30:00 Test Item Value Reference Range Interpretation Comments UA Blood (test code = Negative (09/18/2011 N UA Blood) 10:30:00) [facility]SmuwfsdGBMZYLRTMM0061-86-92 15:30:00 Test Item Value Reference Range Interpretation Comments UA Bili (test code = Negative *NA*(09/18/2011 UA Bili) 10:30:00) [facility] LancasterCpiggmlACYLWXBIAR7664-31-24 15:30:00 Test Item Value Reference Range Interpretation Comments UA Leuk Est (test Negative (09/18/2011 N code = UA Leuk Est) 10:30:00) [facility]ptownSlxkwotRLXGNDVBRO7529-11-04 15:30:00 Test Item Value Reference Range Interpretation Comments UA Nitrite (test code Negative (09/18/2011 N = UA Nitrite) 10:30:00) [facility] LancasterLlufyorBMSFDDLIYG0974-57-10 15:30:00 Test Item Value Reference Range Interpretation Comments UA pH (test code = UA pH) 7.5 1 5.0-8.0 N [facility] LancasterYmfgsqiBJLUTEVPCI8469-44-56 15:30:00 Test Item Value Reference Range Interpretation Comments UA Spec Grav (test code = UA Spec 1.010 1 N Grav) [facility] LancasterSnrqopgZDHJSUYHHI9066-20-06 15:30:00 Test Item Value Reference Range Interpretation Comments UA Turbidity (test code Slight Cloudy N = UA Turbidity) (09/18/2011 10:30:00) [facility] LancasterRelefijBFQVXXEYOA0011-96-85 15:30:00 Test Item Value Reference Range Interpretation Comments UA Color (test code = Yellow *NA*(09/18/2011 UA Color) 10:30:00) [facility] UptownWavmndbNXORMZAVE6197-51-20 14:07:00 Test Item Value Reference Range Interpretation Comments Phosphorus (test code = Phosphorus) 4.4 2.5-4.5 N [facility] TexasCqrgfosMWELRXMZJ1869-68-68 14:07:00 Test Item Value Reference Range Interpretation Comments Magnesium Lvl (test code = Magnesium 1.6 1.8-2.4 L Lvl) [facility] GLUCOSE YECXCSU5865-23-00 14:01:00 Test Item Value Reference Range Interpretation Comments Gluc POC Lifscn (test code = Gluc POC no gt 70-99 A Lifscn) [facility] TexasSbvdxeaKEUQNFJGB6451-84-62 13:52:00 Test Item Value Reference Range Interpretation Comments pO2 Roberth (test code = pO2 Roberth) 24 20-49 N [facility] TexasGhtrgtwUAIVSSDLB7803-56-57 13:52:00 Test Item Value Reference Range Interpretation Comments HCO3 Roberth (test code = HCO3 Roberth) 32.0 22.0-26.0 H [facility] TexasIlwvxekZLTNUJVCK4519-04-30 13:52:00 Test Item Value Reference Range Interpretation Comments pCO2 Roberth (test code = pCO2 Roberth) 44 38-52 N [facility] TexasPfcnsveVSZRIIKYI1445-73-52 13:52:00 Test Item Value Reference Range Interpretation Comments BE Roberth (test code = 7 See_Comment H [Automa rohit message] The BE Roberth) system which ge nerated this result transmit rohit reference range : <=2. The reference range was not used to interpr et this result as reji l/abnormal. [facility] TexasZhvlqjfBPMCPDXUI3888-29-28 13:52:00 Test Item Value Reference Range Interpretation Comments O2 Sat Roberth (test code = O2 Sat Roberth) 48.0 40.0-70.0 N [facility] TexasKscehofZBKDTCTGK7349-17-75 13:52:00 Test Item Value Reference Range Interpretation Comments Temp Roberth (test code = Temp Roberth) 37.0 [facility] TexasFvixtdvFGQYGFCBZ7594-67-16 13:52:00 Test Item Value Reference Range Interpretation Comments pH Roberth (test code = pH Roberth) 7.47 7.28-7.42 H [facility] TexasKhrhlniSSKMZNEAO1042-83-70 13:52:00 Test Item Value Reference Range Interpretation Comments Calcium Lvl (test code = Calcium Lvl) 10.1 8.5-10.5 N [facility] TexasDojacnpJDAUBLWQA3229-87-68 13:52:00 Test Item Value Reference Range Interpretation Comments Chloride Lvl (test code = Chloride Lvl) 92 95-109 L [facility] TexasRrwrcaqMQNTUZQBB6265-94-80 13:52:00 Test Item Value Reference Range Interpretation Comments CO2 (test code = CO2) 30 24-32 N [facility] TexasDjdljcsTPWZADHXL4312-85-89 13:52:00 Test Item Value Reference Range Interpretation Comments Potassium Lvl (test code = Potassium 3.5 3.5-5.1 N Lvl) [facility] TexasKteeuxoVKEBKSKQX7928-81-32 13:52:00 Test Item Value Reference Range Interpretation Comments Sodium Lvl (test code = Sodium Lvl) 133 135-145 L [facility] TexasVpfkohgVREZCKLBA7015-08-83 13:52:00 Test Item Value Reference Range Interpretation Comments Creatinine Lvl (test code = Creatinine 1.3 0.5-1.4 N Lvl) [facility] TexasIxjwzrbQTZTKPGHR1241-88-09 13:52:00 Test Item Value Reference Range Interpretation Comments Glucose Lvl (test code = Glucose Lvl) 383 70-99 H [facility] TexasPdskqnhSDAIVPRVQ2033-60-78 13:52:00 Test Item Value Reference Range Interpretation Comments BUN (test code = BUN) 17 7-22 N [facility] TexasMburoshZCQLFQQIT6780-10-47 13:52:00 Test Item Value Reference Range Interpretation Comments AGAP (test code = AGAP) 14.5 10.0-20.0 N [facility] ArlingtonHbnjyewMQZSRTIPUJ8727-64-32 13:52:00 Test Item Value Reference Range Interpretation Comments MPV (test code = MPV) 12.0 7.4-10.4 H [facility] ArlingtonLbujrfqBWWBVFXLNW4151-88-37 13:52:00 Test Item Value Reference Range Interpretation Comments Platelet (test code = Platelet) 226 133-450 N [facility] ArlingtonUxlfkfxMABZVGWQLN2545-82-13 13:52:00 Test Item Value Reference Range Interpretation Comments MCHC (test code = MCHC) 33.7 32.0-36.0 N [facility] ArlingtonFzjvrmqYYWVQKCFMK2497-28-17 13:52:00 Test Item Value Reference Range Interpretation Comments MCH (test code = MCH) 28.5 pg 27.0-31.0 N [facility] ArlingtonQoyaafmFBMADOIJIG8923-65-22 13:52:00 Test Item Value Reference Range Interpretation Comments RDW (test code = RDW) 15.1 11.5-14.5 H [facility] ArlingtonSkutwfxHFGNEWCPWR0621-00-54 13:52:00 Test Item Value Reference Range Interpretation Comments MCV (test code = MCV) 84.6 81.0-99.0 N [facility] ArlingtonNhjtoryBPJDFTKFZE3174-92-48 13:52:00 Test Item Value Reference Range Interpretation Comments Hct (test code = Hct) 36.4 36.0-48.0 N [facility] ArlingtonGjrzxvjAKREMRBBDG9860-66-28 13:52:00 Test Item Value Reference Range Interpretation Comments Hgb (test code = Hgb) 12.3 12.0-16.0 N [facility] ArlingtonNtirtpkVMREKHCXYQ3406-06-07 13:52:00 Test Item Value Reference Range Interpretation Comments RBC (test code = RBC) 4.30 4.20-5.40 N [facility] ArlingtonTkqbeujIIUJVDUUVU5832-43-95 13:52:00 Test Item Value Reference Range Interpretation Comments WBC (test code = WBC) 11.7 3.7-10.4 H [facility] ArlingtonUhemacyMVEVBQROUH1148-37-74 13:52:00 Test Item Value Reference Range Interpretation Comments Monocytes (test code = Monocytes) 2.9 2.0-12.0 N [facility] ArlingtonQejbyhlBVYWYXWTEY2185-62-75 13:52:00 Test Item Value Reference Range Interpretation Comments Eosinophils (test code = 0.2 See_Comment N [A utomated message] The Eosinophils) system which ge nerated this result tra nsmitted reference range : <=4.0. The reference r leo was not used to int erpret this result as normal/abnormal . [facility] ArlingtonFyaxsjnCXTNYBMHRZ9257-13-92 13:52:00 Test Item Value Reference Range Interpretation Comments Basophils (test code = 0.0 See_Comment N [Aut omated message] The Basophils) system which ge nerated this result tra nsmitted reference range : <=1.0. The reference r leo was not used to int erpret this result as normal/abnormal . [facility] ArlingtonUewjyolXANZHXNUZD6905-00-36 13:52:00 Test Item Value Reference Range Interpretation Comments Eosinophils # (test code 0.0 See_Comment N [A utomated message] The = Eosinophils #) system whic h generated this result tra nsmitted reference range : <=0.5. The reference r leo was not used to int erpret this result as normal/abnormal . [facility] ArlingtonEwatzqqTWJSQYGDCX3947-88-78 13:52:00 Test Item Value Reference Range Interpretation Comments Monocytes # (test code 0.3 See_Comment N [Aut omated message] The = Monocytes #) system which generated this result tra nsmitted reference range : <=0.8. The reference r leo was not used to int erpret this result as normal/abnormal . [facility] ArlingtonPokaxzlSZSSOJFGXD1747-79-63 13:52:00 Test Item Value Reference Range Interpretation Comments Segs (test code = Segs) 92.0 45.0-75.0 H [facility] ArlingtonGjuvkuhQWRHBQRYQY6933-97-07 13:52:00 Test Item Value Reference Range Interpretation Comments Lymphocytes (test code = Lymphocytes) 4.9 20.0-40.0 L [facility] ArlingtonOqosiizYIXCIAIETO0357-76-34 13:52:00 Test Item Value Reference Range Interpretation Comments Spherocyte (test code = Rare A Spherocyte) *ABN*(09/18/2011 08:52:00) [facility] ArlingtonIulqupqWHXQRNAFSS6817-13-73 13:52:00 Test Item Value Reference Range Interpretation Comments Large Plt (test code = Slight *ABN*(09/18/2011 A Large Plt) 08:52:00) [facility] ArlingtonUuxywyeDLDDDPZGLB7222-23-89 13:52:00 Test Item Value Reference Range Interpretation Comments Microcyte (test code = 1+ *ABN*(09/18/2011 A Microcyte) 08:52:00) [facility] ArlingtonMkamzkaLKYOTJNSHR6196-00-31 13:52:00 Test Item Value Reference Range Interpretation Comments Schistocyte (test code = Schistocyte) Rare [facility] ArlingtonBgsptwpBCHKNYQKSL5897-79-56 13:52:00 Test Item Value Reference Range Interpretation Comments Macrocyte (test code = 1+ *ABN*(09/18/2011 A Macrocyte) 08:52:00) [facility] ArlingtonGanpyahLMWVKBWKEO8333-67-18 13:52:00 Test Item Value Reference Range Interpretation Comments Lymphocytes # (test code = Lymphocytes 0.6 1.0-5.5 L #) [facility] ArlingtonFjcexjuBTIWSEKXOC1891-47-82 13:52:00 Test Item Value Reference Range Interpretation Comments Segs-Bands # (test code = Segs-Bands #) 10.8 1.5-8.1 H [facility] ArlingtonEqbfmlaFFVHPWKKDV3752-43-98 13:52:00 Test Item Value Reference Range Interpretation Comments Basophils # (test code 0.0 See_Comment N [Aut omated message] The = Basophils #) system which generated this result tra nsmitted reference range : <=0.2. The reference r leo was not used to int erpret this result as normal/abnormal . [facility]IsoytkpYZOYKXVGPB9790-11-97 13:52:00 Test Item Value Reference Range Interpretation Comments Anisocyte (test code = 1+ *ABN*(09/18/2011 A Anisocyte) 08:52:00) [facility]HsmygsmFNDSAWCFDW4563-07-[facility] 13:52:00 Test Item Value Reference Range Interpretation Comments CDC-HIV 1/2 Ab (test Negative *NA*(09/18/2011 code = CDC-HIV 1/2 08:52:00) Ab) [facility] GLUCOSE EBOCWBL9685-28-76 17:34:00 Test Item Value Reference Range Interpretation Comments Gluc POC Lifscn (test code = Gluc POC 215 70-99 H Lifscn) [facility] GLUCOSE AWKQLOW4819-26-66 17:34:00 Test Item Value Reference Range Interpretation Comments Comment1 (test code = Comment1) Notify RN/ [facility] GLUCOSE KSWKOFR9568-62-41 11:43:00 Test Item Value Reference Range Interpretation Comments Comment1 (test code = Comment1) Notify RN/ [facility] GLUCOSE JKBSVVN2091-19-95 11:43:00 Test Item Value Reference Range Interpretation Comments Gluc POC Lifscn (test code = Gluc POC 91 65-110 N Lifscn) [facility] GLUCOSE EWSXEBP3306-26-53 02:45:00 Test Item Value Reference Range Interpretation Comments Comment1 (test code = Comment1) Notify RN/ [facility] GLUCOSE JOSRVNO4976-26-78 02:45:00 Test Item Value Reference Range Interpretation Comments Gluc POC Lifscn (test code = Gluc POC 148 65-110 H Lifscn) [facility]ownWbxefwiBAXDGGJHQ9334-09-04 08:47:00 Test Item Value Reference Range Interpretation Comments Sodium Lvl (test code = Sodium Lvl) 143 135-145 N [facility] CenterCuslwviIUMRITDZT1986-66-71 08:47:00 Test Item Value Reference Range Interpretation Comments Glucose Lvl (test code = Glucose Lvl) 105 [facility] CenterKiwtimmLDZDYQOVX5832-49-82 08:47:00 Test Item Value Reference Range Interpretation Comments CO2 (test code = CO2) 29 24-32 N [facility]OjciznpADVABZHQO2425-85-50 08:47:00 Test Item Value Reference Range Interpretation Comments Chloride Lvl (test code = Chloride Lvl) 103 95-109 N [facility] TexasXqjovjdFLKJDMCIG2834-06-66 08:47:00 Test Item Value Reference Range Interpretation Comments BUN (test code = BUN) 10 7-22 N [facility] TexasOeooydrMQUJUTRLS2440-47-68 08:47:00 Test Item Value Reference Range Interpretation Comments Potassium Lvl (test code = Potassium 3.8 3.5-5.1 N Lvl) [facility] TexasNylyordFOQNUAUFC0156-99-35 08:47:00 Test Item Value Reference Range Interpretation Comments Creatinine Lvl (test code = Creatinine 0.6 0.5-1.4 N Lvl) [facility] TexasSqyjocjAEZXWEZMV1063-44-82 08:47:00 Test Item Value Reference Range Interpretation Comments Calcium Lvl (test code = Calcium Lvl) 8.5 8.5-10.5 N [facility] TexasVamkspuAZXODEQHW7323-80-38 08:47:00 Test Item Value Reference Range Interpretation Comments AGAP (test code = AGAP) 14.8 10.0-20.0 N [facility] ArlingtonAtfyvhtSAZRVBPCTU6856-62-42 08:47:00 Test Item Value Reference Range Interpretation Comments MCH (test code = MCH) 28.9 pg 27.0-31.0 N [facility] ArlingtonObcpkueTSEDKWVLXM5975-36-01 08:47:00 Test Item Value Reference Range Interpretation Comments MCV (test code = MCV) 82.1 81.0-99.0 N [facility] ArlingtonPddbpmwOTYCFOJZTH0688-07-00 08:47:00 Test Item Value Reference Range Interpretation Comments Hct (test code = Hct) 25.9 36.0-48.0 L [facility] ArlingtonChsjjoaNGLXKLQDVF7222-60-80 08:47:00 Test Item Value Reference Range Interpretation Comments Platelet (test code = Platelet) 233 133-450 N [facility] ArlingtonVkonbtaSERXTJJZKT6743-14-82 08:47:00 Test Item Value Reference Range Interpretation Comments RDW (test code = RDW) 14.5 11.5-14.5 N [facility] ArlingtonKrrgmbiIZAGSHTSRK2335-89-71 08:47:00 Test Item Value Reference Range Interpretation Comments MCHC (test code = MCHC) 35.2 32.0-36.0 N [facility] ArlingtonRmosjifXWCFUCAKGN6451-39-59 08:47:00 Test Item Value Reference Range Interpretation Comments Hgb (test code = Hgb) 9.1 12.0-16.0 L [facility] ArlingtonRwrfgndQTGPFIZJLL0740-34-29 08:47:00 Test Item Value Reference Range Interpretation Comments RBC (test code = RBC) 3.15 4.20-5.40 L [facility] ArlingtonMkdejvuMLDENEYBUD9862-82-26 08:47:00 Test Item Value Reference Range Interpretation Comments MPV (test code = MPV) 9.0 7.4-10.4 N [facility] ArlingtonEzmnovsZCDLPGCIZU9166-40-91 08:47:00 Test Item Value Reference Range Interpretation Comments WBC (test code = WBC) 6.3 3.7-10.4 N [facility] ArlingtonOohedgpFWAYMLTDDQ6317-41-81 08:47:00 Test Item Value Reference Range Interpretation Comments Eosinophils # (test code 0.0 See_Comment N [A utomated message] The = Eosinophils #) system whic h generated this result tra nsmitted reference range : <=0.5. The reference r leo was not used to int erpret this result as normal/abnormal . [facility] ArlingtonEsxdqlwEJCJOUKKJQ7148-36-75 08:47:00 Test Item Value Reference Range Interpretation Comments Basophils # (test code 0.0 See_Comment N [Aut omated message] The = Basophils #) system which generated this result tra nsmitted reference range : <=0.2. The reference r leo was not used to int erpret this result as normal/abnormal . [facility] ArlingtonUkrmtdzLMYBXSGBQV0253-60-43 08:47:00 Test Item Value Reference Range Interpretation Comments Segs-Bands # (test code = Segs-Bands #) 3.8 1.5-8.1 N [facility] ArlingtonMexaqlrOZFVPPWTCP1436-91-32 08:47:00 Test Item Value Reference Range Interpretation Comments Lymphocytes # (test code = Lymphocytes 2.0 1.0-5.5 N #) [facility] ArlingtonUqyecjiCRFCEWJQQT6209-40-39 08:47:00 Test Item Value Reference Range Interpretation Comments Basophils (test code = 0.5 See_Comment N [Aut omated message] The Basophils) system which ge nerated this result tra nsmitted reference range : <=1.0. The reference r leo was not used to int erpret this result as normal/abnormal . [facility] ArlingtonMotwazbFGCBWOXQER6047-62-15 08:47:00 Test Item Value Reference Range Interpretation Comments Eosinophils (test code = 0.7 See_Comment N [A utomated message] The Eosinophils) system which ge nerated this result tra nsmitted reference range : <=4.0. The reference r leo was not used to int erpret this result as normal/abnormal . [facility] ArlingtonUabkqhnPDCTINGYNA0875-72-27 08:47:00 Test Item Value Reference Range Interpretation Comments Monocytes (test code = Monocytes) 6.2 2.0-12.0 N [facility] ArlingtonPotcrlfQBNMJEEKKY1169-47-00 08:47:00 Test Item Value Reference Range Interpretation Comments Segs (test code = Segs) 61.1 45.0-75.0 N [facility] ArlingtonUskghprYKURKPGJGJ2189-16-95 08:47:00 Test Item Value Reference Range Interpretation Comments Lymphocytes (test code = Lymphocytes) 31.5 20.0-40.0 N [facility] ArlingtonXpysegrYAPUSSQFBG8404-25-45 08:47:00 Test Item Value Reference Range Interpretation Comments Monocytes # (test code 0.4 See_Comment N [Aut omated message] The = Monocytes #) system which generated this result tra nsmitted reference range : <=0.8. The reference r leo was not used to int erpret this result as normal/abnormal . [facility] TexasIptoctmYTEJHRVOJ9230-16-39 10:54:00 Test Item Value Reference Range Interpretation Comments CO2 (test code = CO2) 27 24-32 N [facility] TexasPelxueyEGYRYWLWR2936-21-75 10:54:00 Test Item Value Reference Range Interpretation Comments Chloride Lvl (test code = Chloride Lvl) 104 95-109 N [facility] TexasRifgygvJVISMKUHX4498-66-32 10:54:00 Test Item Value Reference Range Interpretation Comments Creatinine Lvl (test code = Creatinine 0.5 0.5-1.4 N Lvl) [facility] TexasJtgcwfpOUQKVUUNZ8782-41-81 10:54:00 Test Item Value Reference Range Interpretation Comments BUN (test code = BUN) 10 7-22 N [facility] TexasAluembtQBYMQTRBW2864-83-02 10:54:00 Test Item Value Reference Range Interpretation Comments Potassium Lvl (test code = Potassium 4.1 3.5-5.1 N Lvl) [facility] TexasSbqvzwhRZRIJSKIO4885-52-44 10:54:00 Test Item Value Reference Range Interpretation Comments Sodium Lvl (test code = Sodium Lvl) 141 135-145 N [facility] TexasSgtjwxiYSRGFRZIE0725-33-20 10:54:00 Test Item Value Reference Range Interpretation Comments Glucose Lvl (test code = Glucose Lvl) 83 [facility] TexasTnbilzeUBYTYLRYJ0547-55-79 10:54:00 Test Item Value Reference Range Interpretation Comments Calcium Lvl (test code = Calcium Lvl) 8.4 8.5-10.5 L [facility] TexasRqvuwtuSDDCZULDJ1501-18-35 10:54:00 Test Item Value Reference Range Interpretation Comments AGAP (test code = AGAP) 14.1 10.0-20.0 N [facility] ArlingtonIhpoclyMRXMPFOMHW9726-33-76 10:54:00 Test Item Value Reference Range Interpretation Comments Hct (test code = Hct) 35.5 36.0-48.0 L [facility] ArlingtonUhwdefzIALLVZVUUM6465-59-45 10:54:00 Test Item Value Reference Range Interpretation Comments WBC (test code = WBC) 4.7 3.7-10.4 N [facility] ArlingtonQxagstmPVYBWAXGXS5197-00-32 10:54:00 Test Item Value Reference Range Interpretation Comments MCV (test code = MCV) 92.6 81.0-99.0 N [facility] ArlingtonUrhvamcLFODDEEFQA8906-08-09 10:54:00 Test Item Value Reference Range Interpretation Comments MCH (test code = MCH) 31.4 pg 27.0-31.0 H [facility] ArlingtonAbnsahlGSQXUXPDYZ7411-10-68 10:54:00 Test Item Value Reference Range Interpretation Comments RBC (test code = RBC) 3.84 4.20-5.40 L [facility] ArlingtonFiplyjjDRYJKQXHBL1241-67-14 10:54:00 Test Item Value Reference Range Interpretation Comments Hgb (test code = Hgb) 12.1 12.0-16.0 N [facility] ArlingtonZlksdngGPBTYDPURN4315-51-94 10:54:00 Test Item Value Reference Range Interpretation Comments Platelet (test code = Platelet) 287 133-450 N [facility] ArlingtonEfpitweMOEOEMTOVE8902-35-79 10:54:00 Test Item Value Reference Range Interpretation Comments RDW (test code = RDW) 12.7 11.5-14.5 N [facility] ArlingtonTcuotwdPPDZXOOVEE3784-35-64 10:54:00 Test Item Value Reference Range Interpretation Comments MCHC (test code = MCHC) 33.9 32.0-36.0 N [facility] ArlingtonRhoplxyHUWLCWYTNF2803-26-88 10:54:00 Test Item Value Reference Range Interpretation Comments MPV (test code = MPV) 7.2 7.4-10.4 L [facility] ArlingtonIdmwzkcCMADLAWUES7215-35-39 10:54:00 Test Item Value Reference Range Interpretation Comments INR (test code = INR) 0.95 0.85-1.17 N [facility] ArlingtonBfrrlosXZDCJUYLES7836-50-96 10:54:00 Test Item Value Reference Range Interpretation Comments PT (test code = PT) 12.7 s 12.0-14.7 N [facility] ArlingtonPqubqclOSVEKDLHKX8031-80-47 10:54:00 Test Item Value Reference Range Interpretation Comments PTT (test code = PTT) 28.5 s 22.9-35.8 N [facility] ArlingtonSzpsfqrSQBAEMICVD7375-14-02 10:54:00 Test Item Value Reference Range Interpretation Comments Eosinophils # (test code 0.1 See_Comment N [A utomated message] The = Eosinophils #) system whic h generated this result tra nsmitted reference range : <=0.5. The reference r leo was not used to int erpret this result as normal/abnormal . [facility] ArlingtonBcknekkLQQCVHAOXZ3508-49-45 10:54:00 Test Item Value Reference Range Interpretation Comments Basophils # (test code 0.0 See_Comment N [Aut omated message] The = Basophils #) system which generated this result tra nsmitted reference range : <=0.2. The reference r leo was not used to int erpret this result as normal/abnormal . [facility] ArlingtonQtkjkheZZVFVKWGLJ2406-85-24 10:54:00 Test Item Value Reference Range Interpretation Comments Basophils (test code = 0.4 See_Comment N [Aut omated message] The Basophils) system which ge nerated this result tra nsmitted reference range : <=1.0. The reference r leo was not used to int erpret this result as normal/abnormal . [facility] ArlingtonUmoktumKQECTKUXSZ1546-09-94 10:54:00 Test Item Value Reference Range Interpretation Comments Segs-Bands # (test code = Segs-Bands #) 2.1 1.5-8.1 N [facility] ArlingtonWybytmzMJFNNPXNHA3563-80-01 10:54:00 Test Item Value Reference Range Interpretation Comments Monocytes (test code = Monocytes) 9.0 2.0-12.0 N [facility] ArlingtonUwxticiGRNCZSIVTT7375-77-35 10:54:00 Test Item Value Reference Range Interpretation Comments Eosinophils (test code = 2.4 See_Comment N [A utomated message] The Eosinophils) system which ge nerated this result tra nsmitted reference range : <=4.0. The reference r leo was not used to int erpret this result as normal/abnormal . [facility] ArlingtonYaunberSCZZLEYNJQ2718-50-70 10:54:00 Test Item Value Reference Range Interpretation Comments Monocytes # (test code 0.4 See_Comment N [Aut omated message] The = Monocytes #) system which generated this result tra nsmitted reference range : <=0.8. The reference r leo was not used to int erpret this result as normal/abnormal . [facility] ArlingtonJqtsfchSUAMOYHWXS0400-43-24 10:54:00 Test Item Value Reference Range Interpretation Comments Lymphocytes # (test code = Lymphocytes 2.0 1.0-5.5 N #) [facility] ArlingtonMcalppfTGZFDAADKU4407-40-63 10:54:00 Test Item Value Reference Range Interpretation Comments Lymphocytes (test code = Lymphocytes) 42.8 20.0-40.0 H [facility] ArlingtonTmugberRJARAJTJLC2293-06-59 10:54:00 Test Item Value Reference Range Interpretation Comments Segs (test code = Segs) 45.4 45.0-75.0 N [facility] TexasDwpibasNIFNEMVXR6416-37-78 10:02:00 Test Item Value Reference Range Interpretation Comments Chloride Lvl (test code = Chloride Lvl) 105 95-109 N [facility] TexasQwfgroxGSTEVEAUK5020-47-18 10:02:00 Test Item Value Reference Range Interpretation Comments Potassium Lvl (test code = Potassium 4.1 3.5-5.1 N Lvl) [facility] TexasTsrvzsxYJEVUNNNI6143-45-59 10:02:00 Test Item Value Reference Range Interpretation Comments Sodium Lvl (test code = Sodium Lvl) 143 135-145 N [facility] TexasBkpfwmzADSWSQMFA4492-71-78 10:02:00 Test Item Value Reference Range Interpretation Comments CO2 (test code = CO2) 29 24-32 N [facility] TexasPjztrtpQIUGMLJLD7030-20-01 10:02:00 Test Item Value Reference Range Interpretation Comments Calcium Lvl (test code = Calcium Lvl) 8.7 8.5-10.5 N [facility] TexasIkxnphaBQPWLDLGL8491-57-89 10:02:00 Test Item Value Reference Range Interpretation Comments BUN (test code = BUN) 6 7-22 L [facility] TexasLoetjxrKHAJCHSOX7330-61-24 10:02:00 Test Item Value Reference Range Interpretation Comments Creatinine Lvl (test code = Creatinine 0.6 0.5-1.4 N Lvl) [facility] TexasKaiouykRJENVNRBN9936-47-85 10:02:00 Test Item Value Reference Range Interpretation Comments Glucose Lvl (test code = Glucose Lvl) 118 [facility] TexasKsvqpovFVLBQYDND9521-96-02 10:02:00 Test Item Value Reference Range Interpretation Comments AGAP (test code = AGAP) 13.1 10.0-20.0 N [facility] ArlingtonBksxzkfXGQRFKYSGU4359-91-74 10:02:00 Test Item Value Reference Range Interpretation Comments Basophils # (test code 0.0 See_Comment N [Aut omated message] The = Basophils #) system which generated this result tra nsmitted reference range : <=0.2. The reference r leo was not used to int erpret this result as normal/abnormal . [facility] ArlingtonIwqjgrpCITXHRIWGR7856-33-59 10:02:00 Test Item Value Reference Range Interpretation Comments Monocytes # (test code 0.3 See_Comment N [Aut omated message] The = Monocytes #) system which generated this result tra nsmitted reference range : <=0.8. The reference r leo was not used to int erpret this result as normal/abnormal . [facility] ArlingtonGbfmgzaJCZZHKBVKI8213-49-60 10:02:00 Test Item Value Reference Range Interpretation Comments Eosinophils # (test code 0.1 See_Comment N [A utomated message] The = Eosinophils #) system whic h generated this result tra nsmitted reference range : <=0.5. The reference r leo was not used to int erpret this result as normal/abnormal . [facility] ArlingtonCsptfngUDLHFMISEE1477-93-76 10:02:00 Test Item Value Reference Range Interpretation Comments Segs-Bands # (test code = Segs-Bands #) 2.8 1.5-8.1 N [facility] ArlingtonKyasjlnZJEWKCCZCW4375-54-01 10:02:00 Test Item Value Reference Range Interpretation Comments Lymphocytes # (test code = Lymphocytes 1.7 1.0-5.5 N #) [facility] ArlingtonBqffhvhLRWSRLVEQT3062-86-66 10:02:00 Test Item Value Reference Range Interpretation Comments Basophils (test code = 0.6 See_Comment N [Aut omated message] The Basophils) system which ge nerated this result tra nsmitted reference range : <=1.0. The reference r leo was not used to int erpret this result as normal/abnormal . [facility] ArlingtonEpmrmiqXJHCSKCEAB0239-95-01 10:02:00 Test Item Value Reference Range Interpretation Comments Monocytes (test code = Monocytes) 6.9 2.0-12.0 N [facility] ArlingtonVndlcwoQQCTINOWAT4500-46-51 10:02:00 Test Item Value Reference Range Interpretation Comments Eosinophils (test code = 2.0 See_Comment N [A utomated message] The Eosinophils) system which ge nerated this result tra nsmitted reference range : <=4.0. The reference r leo was not used to int erpret this result as normal/abnormal . [facility] ArlingtonUdsyvxrNSFADGULXL0343-38-96 10:02:00 Test Item Value Reference Range Interpretation Comments Segs (test code = Segs) 55.8 45.0-75.0 N [facility] ArlingtonBxxpcodDFOUEOCJGT0622-52-79 10:02:00 Test Item Value Reference Range Interpretation Comments Lymphocytes (test code = Lymphocytes) 34.7 20.0-40.0 N [facility] ArlingtonJnfxgwpXTLDTSHSQA9481-02-54 10:02:00 Test Item Value Reference Range Interpretation Comments PTT (test code = PTT) 32.2 s 22.9-35.8 N [facility] ArlingtonDoolhbfPFBOYPZWBO0830-10-04 10:02:00 Test Item Value Reference Range Interpretation Comments PT (test code = PT) 13.3 s 12.0-14.7 N [facility] ArlingtonKkrbljnHSBDVQNXWV6713-77-53 10:02:00 Test Item Value Reference Range Interpretation Comments INR (test code = INR) 1.01 0.85-1.17 N [facility] ArlingtonGurtnimCGVNPBKPTO1762-52-35 10:02:00 Test Item Value Reference Range Interpretation Comments Hct (test code = Hct) 27.5 36.0-48.0 L [facility] ArlingtonFydwathEHKIJTTRLH5653-47-86 10:02:00 Test Item Value Reference Range Interpretation Comments RBC (test code = RBC) 3.34 4.20-5.40 L [facility] ArlingtonWpjvofcLENEVXYXPU8761-45-50 10:02:00 Test Item Value Reference Range Interpretation Comments Hgb (test code = Hgb) 9.7 12.0-16.0 L [facility] ArlingtonQgiujvqZWJQWVKVQO9652-85-27 10:02:00 Test Item Value Reference Range Interpretation Comments WBC (test code = WBC) 5.0 3.7-10.4 N [facility] ArlingtonOdybxorRAPZZVEXUL9695-78-32 10:02:00 Test Item Value Reference Range Interpretation Comments MPV (test code = MPV) 9.2 7.4-10.4 N [facility] ArlingtonNioqmqhRUOLSRDVQW4683-66-60 10:02:00 Test Item Value Reference Range Interpretation Comments Platelet (test code = Platelet) 240 133-450 N [facility] ArlingtonVheqhvjCKLASUEDBH4933-79-38 10:02:00 Test Item Value Reference Range Interpretation Comments RDW (test code = RDW) 14.3 11.5-14.5 N [facility] ArlingtonEpfzwrbZBHFTIYXPO7044-84-73 10:02:00 Test Item Value Reference Range Interpretation Comments MCHC (test code = MCHC) 35.2 32.0-36.0 N [facility] ArlingtonRqnfprlFAXQDTSHUL7566-92-19 10:02:00 Test Item Value Reference Range Interpretation Comments MCH (test code = MCH) 28.9 pg 27.0-31.0 N [facility] ArlingtonSgcmeomCQJFVFIVOO3795-04-79 10:02:00 Test Item Value Reference Range Interpretation Comments MCV (test code = MCV) 82.1 81.0-99.0 N [facility] TexasXbesihwQGKRHLJVV9518-75-83 09:24:00 Test Item Value Reference Range Interpretation Comments Magnesium Lvl (test code = Magnesium 2.1 1.8-2.4 N Lvl) [facility]owuvmwApcwmztoheox9387-59-63 00:32:00 Test Item Value Reference Range Interpretation Comments Culture: Aspirate/Body Fluid/Tissue (test code = Culture: Aspirate/Body Fluid/Tissue) [facility]hgirgwxfxaq3826[facility]48-85 00:32:00 Test Item Value Reference Range Interpretation Comments Culture: Anaerobic (test code = Culture: Anaerobic) [facility] TexasUrmzvwmZVQZXMHUH3030-45-25 17:10:00 Test Item Value Reference Range Interpretation Comments Temp Roberth (test code = Temp Roberth) 37.0 [facility] TexasQdzixqeKUSCLXKRR9415-68-01 17:10:00 Test Item Value Reference Range Interpretation Comments O2 Sat Roberth (test code = O2 Sat Roberth) 27.0 40.0-70.0 L [facility] TexasHaaqmqqVEIEGGBXX7567-72-54 17:10:00 Test Item Value Reference Range Interpretation Comments pCO2 Roberth (test code = pCO2 Roberth) 47 38-52 N [facility] TexasLatljflTDKOOGXJC1880-49-71 17:10:00 Test Item Value Reference Range Interpretation Comments pH Roberth (test code = pH Roberth) 7.37 7.28-7.42 N [facility] TexasDienftgXSDNJMIDS0679-39-48 17:10:00 Test Item Value Reference Range Interpretation Comments BE Roberth (test code = 1 See_Comment N [Automa rohit message] The BE Roberth) system which ge nerated this result transmit rohit reference range : <=2. The reference range was not used to interpr et this result as reji l/abnormal. [facility] TexasSertpysRRZJRWCTU2128-51-83 17:10:00 Test Item Value Reference Range Interpretation Comments HCO3 Roberth (test code = HCO3 Roberth) 27.2 22.0-26.0 H [facility] TexasGufixdqXOUVNOFUZ9116-92-01 17:10:00 Test Item Value Reference Range Interpretation Comments pO2 Roberth (test code = pO2 Roberth) 19 20-49 L [facility]NcqmouoXrnxhrqujfom6597-65-05 14:18:00 Test Item Value Reference Range Interpretation Comments Culture: Blood (test code = Culture: Blood) [facility] HospitalSedmmdjAotbakppirvb6647-59-23 14:18:00 Test Item Value Reference Range Interpretation Comments Culture: Wound/Abscess w/Gram Stain (test code = Culture: Wound/Abscess w/Gram Stain) [facility] TexasQonjapkWZOLHZPBD9798-17-54 13:09:00 Test Item Value Reference Range Interpretation Comments Lactic Acid Lvl (test code = Lactic 1.0 0.5-2.2 N Acid Lvl) [facility] TexasFpbggxwNUWKEGJPK0701-56-49 12:20:00 Test Item Value Reference Range Interpretation Comments U Preg (test code = U Negative (09/01/2011 N Preg) 07:20:00) [facility]LzncusgYMMQBUSRNG6644-27-58 12:20:00 Test Item Value Reference Range Interpretation Comments UA Sq Epi (test code Occasional /LPF N = UA Sq Epi) (09/01/2011 07:20:00) [facility] LancasterIsmufqfXRSLNBIYOJ6014-05-50 12:20:00 Test Item Value Reference Range Interpretation Comments UA Leuk Est (test Negative (09/01/2011 N code = UA Leuk Est) 07:20:00) [facility] LancasterKczgxqzVBPQZYYVLU4862-99-67 12:20:00 Test Item Value Reference Range Interpretation Comments UA Nitrite (test code Negative (09/01/2011 N = UA Nitrite) 07:20:00) [facility] LancasterYkpmfbpCOYNVNSLLQ0044-39-32 12:20:00 Test Item Value Reference Range Interpretation Comments UA Urobilinogen (test code = UA 0.2 0.1-1.0 N Urobilinogen) [facility] LancasterYmlsmkuMPNPINHTWG1812-21-45 12:20:00 Test Item Value Reference Range Interpretation Comments UA Blood (test code = Negative (09/01/2011 N UA Blood) 07:20:00) [facility] LancasterRgzflpdBOMNTUJTVT5621-04-60 12:20:00 Test Item Value Reference Range Interpretation Comments UA Ketones (test code = >=80 mg/dL A UA Ketones) *ABN*(09/01/2011 07:20:00) [facility]qq[facility]UREIULNWIJ9921[facility] 12:20:00 Test Item Value Reference Range Interpretation Comments UA Protein (test code Negative (09/01/2011 N = UA Protein) 07:20:00) [facility] LancasterLgihohyZPRQJCQYII4535-03-30 12:20:00 Test Item Value Reference Range Interpretation Comments UA pH (test code = UA pH) 6.0 1 5.0-8.0 N [facility] LancasterLiedsknBSHOKFAVRT4546-07-42 12:20:00 Test Item Value Reference Range Interpretation Comments UA Bili (test code = Negative (09/01/2011 N UA Bili) 07:20:00) [facility] LancasterTppkqjbSPOFGKPSJR0739-30-36 12:20:00 Test Item Value Reference Range Interpretation Comments UA Glucose (test code = >=1000 mg/dL A UA Glucose) *ABN*(09/01/2011 07:20:00) [facility] CenterCabgpjuLXEIPOTIER3050-19-60 12:20:00 Test Item Value Reference Range Interpretation Comments UA Spec Grav (test code = UA Spec 1.035 1 H Grav) [facility] LancasterMzbysnsXFNEKHVZQE0910-53-91 12:20:00 Test Item Value Reference Range Interpretation Comments UA Turbidity (test code = Clear (09/01/2011 N UA Turbidity) 07:20:00) [facility] LancasterRrvtrnzTSHTBEHXXH3576-38-86 12:20:00 Test Item Value Reference Range Interpretation Comments UA Color (test code = Yellow *NA*(09/01/2011 UA Color) 07:20:00) [facility] TexasNxohfakXOBDJNFAY4876-59-96 08:00:00 Test Item Value Reference Range Interpretation Comments Lactic Acid Lvl (test code = Lactic 2.8 0.5-2.2 H Acid Lvl) [facility] TexasOmxbsbcXLDPWGKVO0483-52-70 07:47:00 Test Item Value Reference Range Interpretation Comments Magnesium Lvl (test code = Magnesium 1.5 1.8-2.4 L Lvl) [facility] ArlingtonIztgurhCJTUZTAUAD5450-10-45 07:47:00 Test Item Value Reference Range Interpretation Comments Polychrom (test code = Slight (09/01/2011 N Polychrom) 02:47:00) [facility] ArlingtonIqaxfhjKJWCYBWBCL8346-53-56 07:47:00 Test Item Value Reference Range Interpretation Comments Anisocyte (test code = 1+ *ABN*(09/01/2011 A Anisocyte) 02:47:00) [facility] ArlingtonIaabpxmKLKBBGJUGN4193-30-43 07:47:00 Test Item Value Reference Range Interpretation Comments Large Plt (test code = Slight *ABN*(09/01/2011 A Large Plt) 02:47:00) [facility] ArlingtonGyryzfnGSOKRURFJH9672-30-33 07:47:00 Test Item Value Reference Range Interpretation Comments Tear Cell (test code = Tear Cell) Occasional [facility] ArlingtonIhpjjrjFEOVSETUTK1653-94-11 07:47:00 Test Item Value Reference Range Interpretation Comments Elliptocyte (test code = Slight A Elliptocyte) *ABN*(09/01/2011 02:47:00) [facility] GLUCOSE ITSBWLY0529-28-28 17:02:00 Test Item Value Reference Range Interpretation Comments Comment1 (test code = Comment1) Notify RN/MD [facility] GLUCOSE GHODEFF5186-81-81 17:02:00 Test Item Value Reference Range Interpretation Comments Gluc POC Lifscn (test code = Gluc POC 134 65-110 H Lifscn) [facility] GLUCOSE DLEHUEA0667-79-09 13:45:00 Test Item Value Reference Range Interpretation Comments Gluc POC Lifscn (test code = Gluc POC 182 65-110 H Lifscn) [facility] GLUCOSE EQAXKMA4261-20-14 13:45:00 Test Item Value Reference Range Interpretation Comments Comment1 (test code = Comment1) Notify RN/ [facility] TexasGsqnezaQHFDYJSCI5227-72-10 10:22:00 Test Item Value Reference Range Interpretation Comments Phosphorus (test code = Phosphorus) 3.0 2.5-4.5 N [facility] TexasIqjszraCPSPGNGKQ3108-81-03 10:22:00 Test Item Value Reference Range Interpretation Comments Magnesium Lvl (test code = Magnesium 1.8 1.8-2.4 N Lvl) [facility] TexasNjueyfhHWABDWZPR1188-47-63 10:22:00 Test Item Value Reference Range Interpretation Comments Chloride Lvl (test code = Chloride Lvl) 107 95-109 N [facility] TexasHqarnnxRGZNZFTWE2685-24-02 10:22:00 Test Item Value Reference Range Interpretation Comments Potassium Lvl (test code = Potassium 3.0 3.5-5.1 A Lvl) [facility] TexasPwhauogWSUGZPHPM2593-71-74 10:22:00 Test Item Value Reference Range Interpretation Comments Sodium Lvl (test code = Sodium Lvl) 141 135-145 N [facility] TexasMwwbefcTQNNRPGYL0547-85-88 10:22:00 Test Item Value Reference Range Interpretation Comments Creatinine Lvl (test code = Creatinine 0.6 0.5-1.4 N Lvl) [facility] TexasOuvdvlcKMCXXVAXH5046-09-74 10:22:00 Test Item Value Reference Range Interpretation Comments CO2 (test code = CO2) 23 24-32 L [facility] TexasIelxsoxUJXPARMFU9149-27-59 10:22:00 Test Item Value Reference Range Interpretation Comments Calcium Lvl (test code = Calcium Lvl) 7.3 8.5-10.5 L [facility] TexasPksfxenWLKYEPKFE3896-17-71 10:22:00 Test Item Value Reference Range Interpretation Comments Glucose Lvl (test code = Glucose Lvl) 136 [facility] TexasFjjvcocSEBHUDCXW8937-39-96 10:22:00 Test Item Value Reference Range Interpretation Comments AGAP (test code = AGAP) 14.0 10.0-20.0 N [facility] TexasOlqgfcjLUQQMVWCX8281-79-39 10:22:00 Test Item Value Reference Range Interpretation Comments BUN (test code = BUN) 5 7-22 L [facility] ArlingtonGdnuydiOIJHVNJVEJ3441-27-34 10:22:00 Test Item Value Reference Range Interpretation Comments Segs (test code = Segs) 69.6 45.0-75.0 N [facility] ArlingtonLkkccflZQEEPJMEIS8034-21-80 10:22:00 Test Item Value Reference Range Interpretation Comments Lymphocytes (test code = Lymphocytes) 21.5 20.0-40.0 N [facility] ArlingtonEunpoevJVWKAHIOLN5719-66-24 10:22:00 Test Item Value Reference Range Interpretation Comments Monocytes (test code = Monocytes) 7.6 2.0-12.0 N [facility] ArlingtonTccwkvaATGJYEDAGT7542-41-32 10:22:00 Test Item Value Reference Range Interpretation Comments Eosinophils (test code = 1.0 See_Comment N [A utomated message] The Eosinophils) system which ge nerated this result tra nsmitted reference range : <=4.0. The reference r leo was not used to int erpret this result as normal/abnormal . [facility] ArlingtonAxypwqmNBBWZTFHZO1961-61-78 10:22:00 Test Item Value Reference Range Interpretation Comments Basophils (test code = 0.3 See_Comment N [Aut omated message] The Basophils) system which ge nerated this result tra nsmitted reference range : <=1.0. The reference r leo was not used to int erpret this result as normal/abnormal . [facility] ArlingtonZkvsvfdIORTISCMYV7176-95-95 10:22:00 Test Item Value Reference Range Interpretation Comments Segs-Bands # (test code = Segs-Bands #) 4.8 1.5-8.1 N [facility] ArlingtonHzrssbkGVYRRZLACX4318-39-06 10:22:00 Test Item Value Reference Range Interpretation Comments Eosinophils # (test code 0.1 See_Comment N [A utomated message] The = Eosinophils #) system whic h generated this result tra nsmitted reference range : <=0.5. The reference r leo was not used to int erpret this result as normal/abnormal . [facility] ArlingtonWmkmrkcGZJAOQZTNO9482-08-92 10:22:00 Test Item Value Reference Range Interpretation Comments Lymphocytes # (test code = Lymphocytes 1.5 1.0-5.5 N #) [facility] ArlingtonAfbnbbaTMOLRFMGQA2870-12-09 10:22:00 Test Item Value Reference Range Interpretation Comments Monocytes # (test code 0.5 See_Comment N [Aut omated message] The = Monocytes #) system which generated this result tra nsmitted reference range : <=0.8. The reference r leo was not used to int erpret this result as normal/abnormal . [facility] ArlingtonIzddimcSQMUWTAGZE7878-83-45 10:22:00 Test Item Value Reference Range Interpretation Comments Basophils # (test code 0.0 See_Comment N [Aut omated message] The = Basophils #) system which generated this result tra nsmitted reference range : <=0.2. The reference r leo was not used to int erpret this result as normal/abnormal . [facility] ArlingtonMrtmciaDVJWGKCJCI4851-59-24 10:22:00 Test Item Value Reference Range Interpretation Comments MPV (test code = MPV) 11.0 7.4-10.4 H [facility] ArlingtonUkrhcjnTGLMVXUQDR8833-26-25 10:22:00 Test Item Value Reference Range Interpretation Comments Platelet (test code = Platelet) 161 133-450 N [facility] ArlingtonMlgdlpsKIRNSFZUXZ0942-22-39 10:22:00 Test Item Value Reference Range Interpretation Comments MCH (test code = MCH) 29.6 pg 27.0-31.0 N [facility] ArlingtonZwmbnspNRDMEFIZUL8414-37-77 10:22:00 Test Item Value Reference Range Interpretation Comments MCHC (test code = MCHC) 35.4 32.0-36.0 N [facility] ArlingtonVyfrvwcGSJNONQUAT5771-16-97 10:22:00 Test Item Value Reference Range Interpretation Comments RDW (test code = RDW) 14.1 11.5-14.5 N [facility] ArlingtonMyohjlgLDOJMQLNKF5080-00-79 10:22:00 Test Item Value Reference Range Interpretation Comments WBC (test code = WBC) 6.8 3.7-10.4 N [facility] ArlingtonYhyovjvMBDWQDKRRL7115-30-19 10:22:00 Test Item Value Reference Range Interpretation Comments MCV (test code = MCV) 83.5 81.0-99.0 N [facility] ArlingtonEykmousOLZPQUMNPC8914-33-75 10:22:00 Test Item Value Reference Range Interpretation Comments RBC (test code = RBC) 4.44 4.20-5.40 N [facility] ArlingtonMgwqjusHTMTBGDRVJ1161-67-26 10:22:00 Test Item Value Reference Range Interpretation Comments Hgb (test code = Hgb) 13.1 12.0-16.0 N [facility] ArlingtonWkvsgvjQQORISFCJY1748-38-77 10:22:00 Test Item Value Reference Range Interpretation Comments Hct (test code = Hct) 37.1 36.0-48.0 N [facility] GLUCOSE AMTNTAX5593-97-09 02:20:00 Test Item Value Reference Range Interpretation Comments Comment1 (test code = Comment1) Notify RN/MD [facility] GLUCOSE OIAISPL0895-30-14 02:20:00 Test Item Value Reference Range Interpretation Comments Gluc POC Lifscn (test code = Gluc POC 332 65-110 H Lifscn) [facility] TexasRsoqbqsCJQJSZISA8237-30-88 09:47:00 Test Item Value Reference Range Interpretation Comments Phosphorus (test code = Phosphorus) 2.5 2.5-4.5 N [facility] TexasMwcclcoWVYBGFAPF3623-82-82 09:47:00 Test Item Value Reference Range Interpretation Comments Glucose Lvl (test code = Glucose Lvl) 201 [facility] TexasMlqqrqqYAPNDMGCE8318-49-55 09:47:00 Test Item Value Reference Range Interpretation Comments BUN (test code = BUN) 7 7-22 N [facility] TexasXoiudtiSCIVKKTAS1497-66-54 09:47:00 Test Item Value Reference Range Interpretation Comments CO2 (test code = CO2) 19 24-32 L [facility] TexasLwswjviOFAUQZMPW7012-64-76 09:47:00 Test Item Value Reference Range Interpretation Comments Creatinine Lvl (test code = Creatinine 0.3 0.5-1.4 L Lvl) [facility] TexasHftnjbuJBSBRNJXZ3195-44-99 09:47:00 Test Item Value Reference Range Interpretation Comments Sodium Lvl (test code = Sodium Lvl) 137 135-145 N [facility] TexasXhgwzwsYXZWTSZYK2653-14-40 09:47:00 Test Item Value Reference Range Interpretation Comments Chloride Lvl (test code = Chloride Lvl) 103 95-109 N [facility] TexasRsughltULYBLTSBS3425-63-66 09:47:00 Test Item Value Reference Range Interpretation Comments Potassium Lvl (test code = Potassium 3.6 3.5-5.1 N Lvl) [facility] TexasJzeyjdtBVTTWNNAK8066-50-34 09:47:00 Test Item Value Reference Range Interpretation Comments Calcium Lvl (test code = Calcium Lvl) 7.9 8.5-10.5 L [facility] TexasIfuefhdXCCRAXHSI0937-69-82 09:47:00 Test Item Value Reference Range Interpretation Comments AGAP (test code = AGAP) 18.6 10.0-20.0 N [facility] TexasFqylfryQLAGPWBGV7953-50-02 09:47:00 Test Item Value Reference Range Interpretation Comments Magnesium Lvl (test code = Magnesium 1.6 1.8-2.4 L Lvl) [facility] ArlingtonXskkcnaBLOZNGHBWR6555-43-64 09:47:00 Test Item Value Reference Range Interpretation Comments Basophils # (test code 0.0 See_Comment N [Aut omated message] The = Basophils #) system which generated this result tra nsmitted reference range : <=0.2. The reference r leo was not used to int erpret this result as normal/abnormal . [facility] ArlingtonMhjhtutYMEYCHGJVO2975-02-27 09:47:00 Test Item Value Reference Range Interpretation Comments Eosinophils (test code = 0.4 See_Comment N [A utomated message] The Eosinophils) system which ge nerated this result tra nsmitted reference range : <=4.0. The reference r leo was not used to int erpret this result as normal/abnormal . [facility] ArlingtonMulkuczMHQGLFRPVS4581-11-73 09:47:00 Test Item Value Reference Range Interpretation Comments Basophils (test code = 0.5 See_Comment N [Aut omated message] The Basophils) system which ge nerated this result tra nsmitted reference range : <=1.0. The reference r leo was not used to int erpret this result as normal/abnormal . [facility] ArlingtonMysgwbkXRWQNEUEMB2919-24-05 09:47:00 Test Item Value Reference Range Interpretation Comments Segs-Bands # (test code = Segs-Bands #) 5.9 1.5-8.1 N [facility] ArlingtonIsbifujULZWJOWAXL4020-40-53 09:47:00 Test Item Value Reference Range Interpretation Comments Lymphocytes # (test code = Lymphocytes 1.2 1.0-5.5 N #) [facility] ArlingtonNdtlbraGYZJVUPPWX6981-17-37 09:47:00 Test Item Value Reference Range Interpretation Comments Monocytes # (test code 0.5 See_Comment N [Aut omated message] The = Monocytes #) system which generated this result tra nsmitted reference range : <=0.8. The reference r leo was not used to int erpret this result as normal/abnormal . [facility] ArlingtonUicadpbRMNOTFUBWG5534-35-08 09:47:00 Test Item Value Reference Range Interpretation Comments Eosinophils # (test code 0.0 See_Comment N [A utomated message] The = Eosinophils #) system whic h generated this result tra nsmitted reference range : <=0.5. The reference r leo was not used to int erpret this result as normal/abnormal . [facility] ArlingtonFoxjvzqJNMSQBMLGD9960-50-27 09:47:00 Test Item Value Reference Range Interpretation Comments Segs (test code = Segs) 76.9 45.0-75.0 H [facility] ArlingtonBsdmajkKDMPVLVKFO8646-64-40 09:47:00 Test Item Value Reference Range Interpretation Comments Lymphocytes (test code = Lymphocytes) 15.9 20.0-40.0 L [facility] ArlingtonJfgpfmpVVPSYETSID6951-66-26 09:47:00 Test Item Value Reference Range Interpretation Comments Monocytes (test code = Monocytes) 6.3 2.0-12.0 N [facility] ArlingtonLlvdhduHPLUIWXDAI1776-72-35 09:47:00 Test Item Value Reference Range Interpretation Comments MCV (test code = MCV) 82.8 81.0-99.0 N [facility] ArlingtonZvhauwmMNMZCTFBNY5088-97-12 09:47:00 Test Item Value Reference Range Interpretation Comments Hct (test code = Hct) 39.7 36.0-48.0 N [facility] ArlingtonLugcgodUHBYGGQLCT9412-30-38 09:47:00 Test Item Value Reference Range Interpretation Comments MCH (test code = MCH) 29.1 pg 27.0-31.0 N [facility] ArlingtonEeqqrxlSCJXVOHXXF1677-03-18 09:47:00 Test Item Value Reference Range Interpretation Comments Hgb (test code = Hgb) 14.0 12.0-16.0 N [facility] ArlingtonAivmtajIGLOFZEYJX3049-41-74 09:47:00 Test Item Value Reference Range Interpretation Comments MCHC (test code = MCHC) 35.2 32.0-36.0 N [facility] ArlingtonNygmcuzNNETXOHEDY4107-30-74 09:47:00 Test Item Value Reference Range Interpretation Comments RDW (test code = RDW) 13.9 11.5-14.5 N [facility] ArlingtonAvfytmkGPVSSJPGVX7362-36-71 09:47:00 Test Item Value Reference Range Interpretation Comments Platelet (test code = Platelet) 160 133-450 N [facility] ArlingtonWepeckvRRPBUVQIZB0028-51-75 09:47:00 Test Item Value Reference Range Interpretation Comments MPV (test code = MPV) 11.9 7.4-10.4 H [facility] ArlingtonZnaraawKDIABCZCXZ3266-07-78 09:47:00 Test Item Value Reference Range Interpretation Comments WBC (test code = WBC) 7.7 3.7-10.4 N [facility] ArlingtonCotpqhsGTPEIVOUDA0012-89-72 09:47:00 Test Item Value Reference Range Interpretation Comments RBC (test code = RBC) 4.80 4.20-5.40 N [facility] TexasKtrocfdVMHNUUHIF7565-56-62 10:28:00 Test Item Value Reference Range Interpretation Comments Phosphorus (test code = Phosphorus) 2.6 2.5-4.5 N [facility] TexasSdptjngPFNFBNYKS0981-53-03 10:28:00 Test Item Value Reference Range Interpretation Comments Magnesium Lvl (test code = Magnesium 1.8 1.8-2.4 N Lvl) [facility] TexasMysefdlMHUGACHQF1830-15-67 10:28:00 Test Item Value Reference Range Interpretation Comments Potassium Lvl (test code = Potassium 3.7 3.5-5.1 N Lvl) [facility] TexasUtmniceBCODUUNKG5401-33-50 10:28:00 Test Item Value Reference Range Interpretation Comments Sodium Lvl (test code = Sodium Lvl) 137 135-145 N [facility] TexasVuqlmkwQHKSEWALP0286-76-27 10:28:00 Test Item Value Reference Range Interpretation Comments Creatinine Lvl (test code = Creatinine 0.6 0.5-1.4 N Lvl) [facility] TexasRinqswrWRZBWLMPG0981-45-01 10:28:00 Test Item Value Reference Range Interpretation Comments BUN (test code = BUN) 16 7-22 N [facility] TexasKxxgpkmEAFZZAELJ5023-40-33 10:28:00 Test Item Value Reference Range Interpretation Comments Glucose Lvl (test code = Glucose Lvl) 200 [facility] TexasYgmtyeqWRCTWGCED8451-06-68 10:28:00 Test Item Value Reference Range Interpretation Comments Calcium Lvl (test code = Calcium Lvl) 8.3 8.5-10.5 L [facility] TexasIuxpnikMFXIXYREX9846-63-42 10:28:00 Test Item Value Reference Range Interpretation Comments AGAP (test code = AGAP) 19.7 10.0-20.0 N [facility] TexasLhwhicgBAITYVKZS7030-18-64 10:28:00 Test Item Value Reference Range Interpretation Comments Chloride Lvl (test code = Chloride Lvl) 99 95-109 N [facility] TexasJljlmjaXSEEYLNCR3555-88-80 10:28:00 Test Item Value Reference Range Interpretation Comments CO2 (test code = CO2) 22 24-32 L [facility] ArlingtonSavkperIOYHNBUHLL0737-27-71 10:28:00 Test Item Value Reference Range Interpretation Comments Platelet (test code = Platelet) 172 133-450 N [facility] ArlingtonQmdycetIYUEOJULYW8167-57-80 10:28:00 Test Item Value Reference Range Interpretation Comments MPV (test code = MPV) 12.0 7.4-10.4 H [facility] ArlingtonFvlwhhjVHRTKYJZQZ4122-60-38 10:28:00 Test Item Value Reference Range Interpretation Comments WBC (test code = WBC) 7.3 3.7-10.4 N [facility] ArlingtonCyaqkxeHLGFBPOEOS8089-51-04 10:28:00 Test Item Value Reference Range Interpretation Comments RDW (test code = RDW) 14.6 11.5-14.5 H [facility] ArlingtonWlmvmlsDIWHKULUJP9077-73-57 10:28:00 Test Item Value Reference Range Interpretation Comments MCHC (test code = MCHC) 35.0 32.0-36.0 N [facility] ArlingtonYnqnhoyLCAMXGUBYN7304-60-43 10:28:00 Test Item Value Reference Range Interpretation Comments RBC (test code = RBC) 4.54 4.20-5.40 N [facility] ArlingtonWxeungqGOXXENOFQA8517-47-04 10:28:00 Test Item Value Reference Range Interpretation Comments Hct (test code = Hct) 37.6 36.0-48.0 N [facility] ArlingtonYvlxipbXDBOGUMYNG3640-65-13 10:28:00 Test Item Value Reference Range Interpretation Comments MCV (test code = MCV) 82.9 81.0-99.0 N [facility] ArlingtonVsymxutSMNWBALNKB0824-85-93 10:28:00 Test Item Value Reference Range Interpretation Comments MCH (test code = MCH) 29.0 pg 27.0-31.0 N [facility] ArlingtonRtmbxwyGPHLMQKNUW7872-45-02 10:28:00 Test Item Value Reference Range Interpretation Comments Hgb (test code = Hgb) 13.2 12.0-16.0 N [facility] ArlingtonPbayomeOTXGJPZOZM3017-12-41 10:28:00 Test Item Value Reference Range Interpretation Comments Elliptocyte (test code = Slight A Elliptocyte) *ABN*(08/21/2011 04:28:00) [facility] ArlingtonXqptqeyCGKCJBJPYT7370-68-87 10:28:00 Test Item Value Reference Range Interpretation Comments Polychrom (test code = Slight (08/21/2011 N Polychrom) 04:28:00) [facility] ArlingtonBpfxidmAVUUSIUWVF1372-45-52 10:28:00 Test Item Value Reference Range Interpretation Comments Basophils # (test code 0.0 See_Comment N [Aut omated message] The = Basophils #) system which generated this result tra nsmitted reference range : <=0.2. The reference r leo was not used to int erpret this result as normal/abnormal . [facility] ArlingtonAemhiuwAOOQBYMOVI1790-37-50 10:28:00 Test Item Value Reference Range Interpretation Comments Hypochrom (test code = Slight (08/21/2011 N Hypochrom) 04:28:00) [facility] ArlingtonSoohoguDDRBFWWDVY3032-70-69 10:28:00 Test Item Value Reference Range Interpretation Comments Monocytes # (test code 0.6 See_Comment N [Aut omated message] The = Monocytes #) system which generated this result tra nsmitted reference range : <=0.8. The reference r leo was not used to int erpret this result as normal/abnormal . [facility] ArlingtonBmccnzjQIUHAIEVSN1530-63-52 10:28:00 Test Item Value Reference Range Interpretation Comments Eosinophils # (test code 0.0 See_Comment N [A utomated message] The = Eosinophils #) system whic h generated this result tra nsmitted reference range : <=0.5. The reference r leo was not used to int erpret this result as normal/abnormal . [facility] ArlingtonBmedifyVRJVOHZQYY1994-23-65 10:28:00 Test Item Value Reference Range Interpretation Comments Segs-Bands # (test code = Segs-Bands #) 5.3 1.5-8.1 N [facility] ArlingtonNqefzzfUKWWXTVENW5849-57-60 10:28:00 Test Item Value Reference Range Interpretation Comments Lymphocytes # (test code = Lymphocytes 1.3 1.0-5.5 N #) [facility] ArlingtonSswngcnTSVNGQNPLY8014-70-76 10:28:00 Test Item Value Reference Range Interpretation Comments Basophils (test code = 0.5 See_Comment N [Aut omated message] The Basophils) system which ge nerated this result tra nsmitted reference range : <=1.0. The reference r leo was not used to int erpret this result as normal/abnormal . [facility] ArlingtonUfrcdmiFDZLSTTJNU5579-86-22 10:28:00 Test Item Value Reference Range Interpretation Comments Monocytes (test code = Monocytes) 8.5 2.0-12.0 N [facility] ArlingtonJezokvlSVYAPABMBR4173-43-89 10:28:00 Test Item Value Reference Range Interpretation Comments Eosinophils (test code = 0.3 See_Comment N [A utomated message] The Eosinophils) system which ge nerated this result tra nsmitted reference range : <=4.0. The reference r leo was not used to int erpret this result as normal/abnormal . [facility] ArlingtonGkqpkcsBMVBEUUNSB0437-52-46 10:28:00 Test Item Value Reference Range Interpretation Comments Lymphocytes (test code = Lymphocytes) 17.3 20.0-40.0 L [facility] ArlingtonFmkcjztXSJSALPBSB9071-88-61 10:28:00 Test Item Value Reference Range Interpretation Comments Segs (test code = Segs) 73.4 45.0-75.0 N [facility] GLUCOSE IJMQIWR0139-54-49 07:47:00 Test Item Value Reference Range Interpretation Comments Comment2 (test code = Comment2) Verify w/Lab [facility] TexasBehvxewEVOZGVSBA8937-23-57 21:58:00 Test Item Value Reference Range Interpretation Comments S Preg (test code = S Negative (08/19/2011 N Preg) 15:58:00) [facility] TexasVfonfkpFMNXDPFVP0937-57-40 21:58:00 Test Item Value Reference Range Interpretation Comments Lipase Lvl (test code = Lipase Lvl) 169 73-393 N [facility] TexasYomdxsdOBCEGRKMW2770-89-98 21:58:00 Test Item Value Reference Range Interpretation Comments ALT (test code = ALT) 54 See_Comment N [Auto mated message] The system which ge nerated this result transmit rohit reference range : <=65. The reference range was not used to interpr et this result as reji l/abnormal. [facility] TexasSnujjsoHBGJEWWTF6546-37-23 21:58:00 Test Item Value Reference Range Interpretation Comments Alk Phos (test code = Alk Phos) 110 39-136 N [facility] TexasMdwpjpsZWXVVMVDY4175-37-68 21:58:00 Test Item Value Reference Range Interpretation Comments Bili Direct (test code 0.1 See_Comment N [Aut omated message] The = Bili Direct) system which generated this result tra nsmitted reference range : <=0.3. The reference r leo was not used to int erpret this result as reji l/abnormal. [facility] TexasRksvbzcUALQFICSE2208-78-79 21:58:00 Test Item Value Reference Range Interpretation Comments Bili Total (test code = Bili Total) 0.9 0.2-1.3 N [facility] TexasRjynyuiINGUBQFJH2610-01-64 21:58:00 Test Item Value Reference Range Interpretation Comments Albumin Lvl (test code = Albumin Lvl) 4.4 3.5-5.0 N [facility] TexasEznnotuQWQOFBJWM1069-09-91 21:58:00 Test Item Value Reference Range Interpretation Comments Total Protein (test code = Total 8.8 6.4-8.4 H Protein) [facility] TexasIkavmpeQJGPEBCCD3635-32-27 21:58:00 Test Item Value Reference Range Interpretation Comments Bili Indirect (test 0.8 See_Comment N [Automa rohit message] The code = Bili Indirect) system which generated this result tra nsmitted reference range : <=1.0. The reference r leo was not used to int erpret this result as normal/abnormal . [facility] TexasUoyipecYNDPKNJQJ9287-87-22 21:58:00 Test Item Value Reference Range Interpretation Comments AST (test code = AST) 36 See_Comment N [Auto mated message] The system which ge nerated this result transmit rohit reference range : <=37. The reference range was not used to interpr et this result as reji l/abnormal. [facility] TexasMkibftkKLILRUIIN6318-03-66 21:58:00 Test Item Value Reference Range Interpretation Comments Globulin (test code = Globulin) 4.4 2.0-4.0 H [facility] TexasOnfbzorSRZTZPJEF0531-06-57 21:58:00 Test Item Value Reference Range Interpretation Comments A/G Ratio (test code = A/G Ratio) 1.0 0.7-1.6 N [facility] LancasterNfqpoidJMWWQDURWZ5246-59-95 21:58:00 Test Item Value Reference Range Interpretation Comments UA Bacteria (test code Occasional /HPF N = UA Bacteria) (08/19/2011 15:58:00) [facility]kdrqvjXDKBJUXQRI7333-08-24 21:58:00 Test Item Value Reference Range Interpretation Comments UA RBC (test 3-5 /HPF See_Comment A [Automated mes pastor] code = UA RBC) *ABN*(08/19/2011 The syste m which 15:58:00) generated this result transmitted ref erence range: <=2. The reference range was not used to int erpret this result as normal/abnormal . [facility] LancasterQduwdvrGVYEAEYRKH2070-13-20 21:58:00 Test Item Value Reference Range Interpretation Comments UA WBC (test code = 3 See_Comment [Automa rohit message] The UA WBC) system which ge nerated this result transmit rohit reference range : <=5. The reference range was not used to interpr et this result as reji l/abnormal. [facility]WrjmwivEEMQTLKSVL9150-08-42 21:58:00 Test Item Value Reference Range Interpretation Comments UA Mucus (test code = Few /LPF (08/19/2011 N UA Mucus) 15:58:00) [facility] LancasterNcvtzolKZMULCBNNH0996-71-55 21:58:00 Test Item Value Reference Range Interpretation Comments UA Amorph Destiny (test Occasional /HPF A code = UA Amorph *ABN*(08/19/2011 Destiny) 15:58:00) [facility] LancasterTnpbyvqEFDGLANJVD2228-37-74 21:58:00 Test Item Value Reference Range Interpretation Comments UA Urobilinogen (test code = UA 0.2 0.1-1.0 N Urobilinogen) [facility] LancasterHmoqftfDYFSHCLSLO7462-71-20 21:58:00 Test Item Value Reference Range Interpretation Comments UA Sq Epi (test code = Rare /LPF (08/19/2011 N UA Sq Epi) 15:58:00) [facility] LancasterYwnvmmgLXVNQMQFMK7061-24-55 21:58:00 Test Item Value Reference Range Interpretation Comments Micro? (test code = Performed (08/19/2011 N Micro?) 15:58:00) [facility] LancasterEuzwhotBRDKLZUCYF5474-01-73 21:58:00 Test Item Value Reference Range Interpretation Comments UA Leuk Est (test Negative (08/19/2011 N code = UA Leuk Est) 15:58:00) [facility] CenterThstpwbGZKEATQEFG3064-47-27 21:58:00 Test Item Value Reference Range Interpretation Comments UA Nitrite (test code Negative (08/19/2011 N = UA Nitrite) 15:58:00) [facility] LancasterNbxhasoYSRCTGFLAU7839-38-19 21:58:00 Test Item Value Reference Range Interpretation Comments UA pH (test code = UA pH) 5.5 1 5.0-8.0 N [facility] LancasterJfifcexIJUAIRYUWP7378-30-01 21:58:00 Test Item Value Reference Range Interpretation Comments UA Blood (test code = Trace *ABN*(08/19/2011 A UA Blood) 15:58:00) [facility] CenterPgbyuuxUZQIKZIJIR0306-87-74 21:58:00 Test Item Value Reference Range Interpretation Comments UA Bili (test code = Negative (08/19/2011 N UA Bili) 15:58:00) [facility] CenterSfgpyvyYRKHHLEXWV7852-47-08 21:58:00 Test Item Value Reference Range Interpretation Comments UA Ketones (test code = 80 mg/dL A UA Ketones) *ABN*(08/19/2011 15:58:00) [facility] CenterUxxwnggTANBDOFUXO4158-77-04 21:58:00 Test Item Value Reference Range Interpretation Comments UA Glucose (test code = >=1000 mg/dL A UA Glucose) *ABN*(08/19/2011 15:58:00) [facility] LancasterQlucbpoDHSKDMRJKD6897-38-20 21:58:00 Test Item Value Reference Range Interpretation Comments UA Protein (test code Negative (08/19/2011 N = UA Protein) 15:58:00) [facility] CenterFmeqdxhCSQAMNJHVG1571-04-80 21:58:00 Test Item Value Reference Range Interpretation Comments UA Turbidity (test code Slight Cloudy N = UA Turbidity) (08/19/2011 15:58:00) [facility] CenterHonroktIGQFMSLEBH0529-93-48 21:58:00 Test Item Value Reference Range Interpretation Comments UA Spec Grav (test code = UA Spec 1.025 1 Grav) [facility] LancasterMhzbftoYJBCQATNJP8439-77-92 21:58:00 Test Item Value Reference Range Interpretation Comments UA Color (test code = Yellow (08/19/2011 N UA Color) 15:58:00) [facility] TexasNibogsbLDAIZYRIC4151-18-72 21:13:00 Test Item Value Reference Range Interpretation Comments AST (test code = AST) 23 See_Comment N [Auto mated message] The system which ge nerated this result transmit rohit reference range : <=37. The reference range was not used to interpr et this result as reji l/abnormal. [facility] TexasUzhvsmjKBTQWGRML6992-25-80 21:13:00 Test Item Value Reference Range Interpretation Comments Bili Total (test code = Bili Total) 1.0 0.2-1.3 N [facility] TexasLtwgbciYCIETHDMB7825-57-47 21:13:00 Test Item Value Reference Range Interpretation Comments Alk Phos (test code = Alk Phos) 115 39-136 N [facility] TexasLndnmruNOHYZDMYX2738-31-87 21:13:00 Test Item Value Reference Range Interpretation Comments ALT (test code = ALT) 56 See_Comment N [Auto mated message] The system which ge nerated this result transmit rohit reference range : <=65. The reference range was not used to interpr et this result as reji l/abnormal. [facility] TexasYelotitCWCHGGOYU0747-27-90 21:13:00 Test Item Value Reference Range Interpretation Comments Total Protein (test code = Total 9.0 6.4-8.4 H Protein) [facility] TexasCfpgeetYOIRVKLFK2522-23-26 21:13:00 Test Item Value Reference Range Interpretation Comments Albumin Lvl (test code = Albumin Lvl) 4.8 3.5-5.0 N [facility] TexasRwychhcPIJOIZCCB9849-38-27 21:13:00 Test Item Value Reference Range Interpretation Comments Globulin (test code = Globulin) 4.2 2.0-4.0 H [facility] TexasGihqmanBSWZFCWZP3584-46-03 21:13:00 Test Item Value Reference Range Interpretation Comments A/G Ratio (test code = A/G Ratio) 1.1 0.7-1.6 N [facility] TexasXwhbhcoRBAPTNINH0939-94-65 21:13:00 Test Item Value Reference Range Interpretation Comments B/C Ratio (test code = B/C Ratio) 30 6-25 H [facility] ArlingtonXntbbzbJMZPYWMZYB2520-67-38 21:13:00 Test Item Value Reference Range Interpretation Comments RBC Morph (test code = Normal (08/19/2011 N RBC Morph) 15:13:00) [facility] ArlingtonXknkxitKPITESILDO2108-08-92 21:13:00 Test Item Value Reference Range Interpretation Comments Large Plt (test code = Slight *ABN*(08/19/2011 A Large Plt) 15:13:00) [facility] ArlingtonHvppbbvJZYECKVAQL4320-57-89 21:13:00 Test Item Value Reference Range Interpretation Comments Atypical Lymphs (test code = Atypical 0.0 N Lymphs) [facility] ArlingtonKujfrszMEDHMGIKQU4349-01-49 21:13:00 Test Item Value Reference Range Interpretation Comments Bands (test code = 0.0 See_Comment N [Automat ed message] The Bands) system which ge nerated this result transmit rohit reference range : <=11.0. The reference r leo was not used to interpr et this result as reji l/abnormal. [facility] TexasPdewwpvRYSYELEJK1342-63-66 21:10:00 Test Item Value Reference Range Interpretation Comments O2 Sat Roberth (test code = O2 Sat Roberth) 74.0 40.0-70.0 H [facility] TexasGyngszsRULQYSOQZ1207-16-12 21:10:00 Test Item Value Reference Range Interpretation Comments Temp Roberth (test code = Temp Roberth) 37.0 [facility] TexasOiabqpiTDRBZBRSR9596-95-78 21:10:00 Test Item Value Reference Range Interpretation Comments pO2 Roberth (test code = pO2 Roberth) 42 20-49 N [facility] TexasZkcqshzVYGYGEYHY9187-37-70 21:10:00 Test Item Value Reference Range Interpretation Comments HCO3 Roberth (test code = HCO3 Roberth) 17.3 22.0-26.0 L [facility] TexasHedqdwdUQLHHHXDE2037-81-04 21:10:00 Test Item Value Reference Range Interpretation Comments pH Roberth (test code = pH Roberth) 7.34 7.28-7.42 N [facility] TexasOljteixONGSQXWRM4072-03-35 21:10:00 Test Item Value Reference Range Interpretation Comments pCO2 Roberth (test code = pCO2 Roberth) 32 38-52 L [facility] TexasIytohgxVQTFGVKZD1981-16-78 21:10:00 Test Item Value Reference Range Interpretation Comments BE Roberth (test code = -7 See_Comment L [Automa rohit message] The BE Roberth) system which ge nerated this result transmit rohit reference range : <=2. The reference range was not used to interpr et this result as reji l/abnormal. [facility]ownHugftpeHRZGOEBWQI9556-93-42 20:34:00 Test Item Value Reference Range Interpretation Comments CDC-HIV 1/2 Ab (test Negative *NA*(08/19/2011 code = CDC-HIV 1/2 14:34:00) Ab) [facility]
[2021-08-20] MEDS ORDERED: HYDROMORPHONE HCL 1 MG/ML INJ ONE ×3 (06:25→23:58)
[2021-08-20] MEDS ORDERED: ONDANSETRON 4 MG/2 ML VIAL ONE ×2 (06:25→18:06)
[2021-08-20 07:11] LABS: Absolute Lymphocytes (CBC) 1.2 K/uL (0.7-4.9); Lymphocytes % 30.2 % (15.3-44.8); MPV 9.6 fL (7.6-11.3); RBC Red Blood Cell Count 2.97 M/uL (3.86-4.86)
[2021-08-20 07:28] LABS: Albumin 3.7 g/dL (3.4-5.0); Bilirubin Direct 0.2 mg/dL (0-0.2); Bilirubin Total 0.5 mg/dL (0.2-1.0); Protein, Total 7.3 g/dL (6.4-8.2)
[2021-08-20 07:30] LABS: Potassium 5.7 mmol/L (3.5-5.1)
--- NOTE | 2021-08-20 07:35 | RAD REPORT ---
EXAM DESCRIPTION: RAD - Chest Single View - 08/20/2021 7:30 am CLINICAL HISTORY: SOB COMPARISON: Chest Single View dated 08/08/2021; Chest Single View dated 07/30/2021; Chest Single View d ated 06/30/2021; Chest Single View dated 03/31/2021 FINDINGS: Lines: Dialysis catheter. Lungs: No evidence of edema or pneumonia. Decreased vascular congestion from prior. Pleural: No significant pleural effusions or pneumothorax. Cardiac: Cardiomegaly. Bones: No acute fractures. Other: IMPRESSION: No acute cardiopulmonary disease. Vascular congestion/edema on the prior radiograph has improved.
[2021-08-20 07:47] LABS: SARS-COV-2 RT PCR NEGATIVE (NEGATIVE)
[2021-08-20] MEDS ORDERED: INSULIN -REGULAR HUMAN 50 UNIT/0.5 ML ML ONE (07:53)
[2021-08-20] MEDS ORDERED: ALBUTEROL 2.5 MG/3 ML NEB SOL ONE (07:53)
[2021-08-20] MEDS ORDERED: CALCIUM GLUCONATE 1 GM IVPB 0 GM/0 ML BAG IV ONE (07:54)
[2021-08-20] MEDS ORDERED: SOD POLYSTYREN SUL 15 GM/60 ML UCUP ONE (07:54)
[2021-08-20] MEDS ORDERED: D10W 250 ML IV ONE (07:55)
--- NOTE | 2021-08-20 08:47 | EDPHYS ---
Physician Documentation [facility] Name: Cathi Zaldivar Age: 40 yrs Sex: Female : 1980 Arrival Date: 08/20/2021 Time: 05:38 Bed 5 Private MD: ED Physician HPI: 08/20 06:39 This 40 yrs old Female presents to ER via Ambulatory with complaints of pm1 Abdominal Pain, Missed Dialysis. 06:39 The patient presents with abdominal pain in the epigastric area. Onset: The pm1 symptoms/episode began/occurred yesterday. The symptoms do not radiate. Associated signs and symptoms: Pertinent positives: nausea and vomiting, shortness of breath, x 2, Pertinent negatives: chest pain, diarrhea, dysuria, fever. The symptoms are described as achy, similar to prior gastroparesis. Modifying factors: the symptoms are aggravated by missed dialysis for over one week. Last dialysis treatment last Wednesday. The patient has experienced similar episodes in the past, multiple times, and the symptoms today are exactly the same, to previous gastroparesis. The patient has not recently seen a physician, [employer] Builder Dr. Morin. 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: 05:56 LMP N/A - Irregular menses ll3 Historical: - Allergies: 05:56 ambien; ll3 05:56 Codeine; ll3 05:56 GUAIFENESIN; ll3 05:56 Ibuprofen; ll3 05:56 Lisinopril; ll3 05:56 Morphine; ll3 05:56 Nitrofurantoin Macrocrystal; ll3 05:56 PENICILLINS; ll3 05:56 Prolixin; ll3 05:56 zolpidem tartrate; ll3 - PMHx: 05:56 "mental problems"; CHF; chronic kidney disease; cyclic vomiting syndrome; Diabetes - ll3 NIDDM; Dialysis; m-w-f; ENCEPHALOPATHY; Gastroparesis; Hypertension; ibs; liver failure; PERIPHERAL NEUROPATHY; pseudo aneurysm R groin; Seizures; - PSHx: 05:56 section; dialysis catheter R chest wall; eye removed; ll3 - Immunization history:: Client reports having NOT received the Covid vaccine. - Social history:: Smoking status: Reported history of juuling and/or vaping. ROS: 06:39 Constitutional: Negative for fever, chills, and weight loss, Cardiovascular: Negative pm1 for chest pain, palpitations, and edema. 06:39 Back: Negative for injury and pain, MS/Extremity: Negative for injury and deformity, Skin: Negative for injury, rash, and discoloration, Neuro: Negative for headache, weakness, numbness, tingling, and seizure. 06:39 Respiratory: Positive for shortness of breath, Negative for cough, wheezing. 06:39 Abdomen/GI: Positive for abdominal pain, nausea and vomiting, of the epigastric area, Negative for diarrhea, constipation. 06:39 All other systems are negative. Exam: 06:39 Constitutional: This is a well developed, well nourished patient who is awake, alert, pm1 and in no acute distress. Head/Face: Normocephalic, atraumatic. 06:39 Back: No spinal tenderness. No costovertebral tenderness. Full range of motion. Skin: Warm, dry with normal turgor. Normal color with no rashes, no lesions, and no evidence of cellulitis. MS/ Extremity: Pulses equal, no cyanosis. Neurovascular intact. Full, normal range of motion. 06:39 Cardiovascular: Exam negative for acute changes, Rate: normal, Rhythm: regular, Pulses: no pulse deficits are appreciated. 06:39 Respiratory: Exam negative for acute changes, respiratory distress, shortness of breath, Breath sounds: are clear throughout. 06:39 Abdomen/GI: Inspection: abdomen appears normal, Palpation: abdomen is soft and non-tender, in all quadrants. 06:39 Neuro: Exam negative for acute changes, Orientation: is normal, Mentation: is normal, Motor: is normal, moves all fours. Vital Signs: 05:53 BP 223 / 104; Pulse 76; Resp 14; Temp 98.0(O); Pulse Ox 100% on R/A; Weight 74.39 kg ll3 (R); Height 5 ft. 2 in. (157.48 cm) (R); Pain 9/10; 05:56 BP 216 / 102; Pulse 74; Resp 17; Pulse Ox 100% on R/A; ll3 07:43 BP 179 / 110; Pulse 70; Pulse Ox 100% on R/A; ll1 08:50 BP 178 / 97; Pulse 71; Resp 18; Pulse Ox 94% on R/A; ll1 10:00 BP 203 / 103; Pulse 70; ll1 11:00 BP 198 / 105; Pulse 71; ll1 12:00 BP 197 / 101; Pulse 72; Resp 18; Pulse Ox 98% ; ll1 16:00 BP 221 / 87; Pulse 79; Resp 18; Temp 97.9; Pulse Ox 98% ; ll1 05:53 Body Mass Index 30.00 (74.39 kg, 157.48 cm) ll3 MDM: 06:02 Patient medically screened. pm1 07:32 Data reviewed: vital signs. Data interpreted: Pulse oximetry: on room air is 100 %. pm1 Interpretation: normal. 08:44 Physician consultation: Jose Miguel Morin DO was called at 08:40, was contacted at 08:44, pm1 regarding admission, patient's condition, and will see patient Will call salvage mechanic to dialyze the patient. 09:56 Physician consultation: Prince Tamanna BURNS was called at 09:56, was contacted at 09:56, pm1 regarding admission, patient's condition, and will see patient. 11:13 Physician consultation: Jose Miguel Morin DO was contacted at 11:09, regarding difficulty pm1 with peripheral line, therefore inability to give IV medications for correction of hyperkalemia. Dialysis nurse called the ER. Will be taking the patient to the floor for dialysis within the next [address] Patience parekh fine with hyperkalemia treatment with dialysis treatment soon. 11:29 Physician consultation: Prince Tamanna BURNS regarding Inability to give IV medications pm1 for hyperkalemia in ER and update patient is going to dialysis treatment soon, in the emergency department to see patient at 11:29. 08/20 06:12 Order name: COVID-19/FLU A+B (Document "Date of Onset" if Symptomatic); Complete Time: pm1 07:54 08/20 06:12 Order name: Basic Metabolic Panel; Complete Time: 07:31 pm1 08/20 06:12 Order name: CBC with Diff; Complete Time: 07:17 pm1 08/20 06:12 Order name: Hepatic Function; Complete Time: 07:31 pm1 08/20 06:12 Order name: Lipase; Complete Time: 07:31 pm1 08/20 09:50 Order name: Glucose, Ancillary Testing; Complete Time: 09:50 EDMS 08/20 06:45 Order name: Chest Single View XRAY; Complete Time: 07:38 pm1 08/20 09:50 Order name: Glucose, Ancillary Testing; Complete Time: 09:51 EDHI 08/20 06:12 Order name: IV Saline Lock; Complete Time: 07:26 pm1 08/20 06:12 Order name: Labs collected and sent; Complete Time: 07:26 pm1 08/20 06:12 Order name: EKG; Complete Time: 06:13 pm1 08/20 06:12 Order name: EKG - Nurse/Tech; Complete Time: 07:26 pm1 Administered Medications: 07:23 Drug: Zofran (Ondansetron) 4 mg Route: IVP; Site: left wrist; ll1 07:44 Follow up: Response: No adverse reaction ll1 07:25 Drug: Dilaudid (HYDROmorphone) 1 mg {Note: rass 0.} Route: IVP; Site: left wrist; ll1 07:44 Follow up: Response: No adverse reaction; Pain is decreased; RASS: Alert and Calm (0) ll1 07:55 Drug: Albuterol 5 mg Route: Inhalation; ll1 08:44 Follow up: Response: No adverse reaction ll1 08:00 Drug: Kayexalate (polystyrene) 45 grams Route: PO; ll1 08:44 Follow up: Response: No adverse reaction ll1 11:10 Not Given (no IV): D50W 50 ml IVP once; (1 amp) ll1 11:11 Not Given (NO IV): Calcium Gluconate 1 grams IVPB once over 60 mins; (mix in NS 100 mL) ll1 11:11 Not Given (NO IV): Insulin Regular Human 5 units IVP once ll1 11:28 Drug: [place] (HYDROcodone-acetaminophen) 5 mg-325 mg 1 tabs {Note: rass 0.} Route: PO; ll1 12:23 Follow up: Response: No adverse reaction ll1 17:40 Drug: Dilaudid (HYDROmorphone) 2 mg Route: PO; ll1 18:43 Follow up: Response: No adverse reaction ll1 Disposition: 08/21 00:38 Co-signature as Attending Physician, Dinesh Stallworth MD I agree with the assessment and rn plan of care. Attestation: The patient's history, exam findings, diagnostics, and a summary of any interventions or procedures was reviewed in detail with Prince Tamanna BURNS. Disposition Summary: 08/20/21 08:46 Hospitalization Ordered Hospitalization Status: Inpatient Admission pm1 Provider: Prince Tamanna pmAxel Condition: Stable pm1 Problem: new pm1 Symptoms: have improved pm1 Bed/Room Type: Standard pm1 Location: Telemetry/MedSurg (Inpatient)(08/20/21 21:36) cg Room Assignment: [facility](08/20/21 23:31) cg Diagnosis - Hyperkalemia pm1 - End stage renal disease pm1 Forms: - Medication Reconciliation Form pm1 - SBAR form pm1 Signatures: Dispatcher [employer] EDMS Shruthi Stiles Roman, MD MD rn Garcia, Cindy RN RN Anand Luna NP SESSIONS CLERK pm1 Sophie Rubio RN RN jl7 Georgette Longoria RN RN ll1 Ryann Hogan RN RN ll3 Corrections: (The following items were deleted from the chart) 08/20 18:26 08:46 pm1 bd 19:01 08:46 Telemetry/MedSurg (Inpatient) pm1 jl7 19:01 18:26 222 bd jl7 21:36 19:01 [facility] [[email or web address]] ER HOLD jl7 cg 21:36 19:01 jl7 cg 23:31 21:36 cg cg
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
[2021-08-20] MEDS ORDERED: MANNITOL 25% 12.5 GM/50 ML VIAL IV PRN (10:44)
[2021-08-20] MEDS ORDERED: NA CHLORIDE 0.9% 1,000 ML IV PRN (10:44)
[2021-08-20] MEDS ORDERED: ALBUMIN HUMAN 25% 50 ML IV SCH (11:00)
--- NOTE | 2021-08-20 11:07 | EKG ---
Test Date: 2021-08-20 Test Time: 06:27:10 Gum Rolling Machine Operator: MEASUREMENT RESULTS: Intervals: Rate: 72 NE: 152 QRSD: 86 QT: 428 QTc: 468 Cameron: P: 73 NE: 152 QRS: 67 T: 70 INTERPRETIVE STATEMENTS: Normal sinus rhythm Normal ECG Compared to ECG 08/07/2021 23:50:35 Right-axis deviation no longer present Electronically Signed On 08-20-21 11:06:26 LABORER TIN CAN by Juan Hogan
[2021-08-20] MEDS ORDERED: HYDROCODONE/APAP 5/325 MG TAB ONE (11:26)
[2021-08-20 11:35] VITALS: BMI 29.6
--- NOTE | 2021-08-20 11:56 | P.HP ---
Certification for Inpatient Patient admitted to: Observation With expected LOS: <2 Midnights Practitioner: I am a practitioner with admitting privileges, knowledge of patient current condition, hospital course, and medical plan of care. Services: Services provided to patient in accordance with Admission requirements found in Title 42 Section 412.3 of the Code of Federal Regulations Patient History Date of Service: 08/20/21 Reason for admission: Missed dialysis sessions History of Present Illness: Patient is a 40-year-old female with a past medical history of type 2 diabetes mellitus, hypertension and ESRD on hemodialysis. She is presenting to the hospital complaining of shortness of breath. Her symptoms have been ongoing for the past week. She has missed her hemodialysis sessions during this time. She follows up with Dr. Luis garcia as outpatient. The first time she missed her session was because she was not feeling well. She missed another session and because she can set up her alarm clock on time and missed her dialysis appointment. She is also having nausea and vomiting. Of note, patient has a history of gastroparesis. Allergies zolpidem tartrate [From Ambien] Allergy (Intermediate, Verified 10/17/16 23:08) Itching/Hives/Rash codeine [Codeine] Allergy (Verified 10/17/16 23:08) Hives fluphenazine enanthate [From Prolixin] Allergy (Verified 10/17/16 23:08) ARM NUMBNESS fluphenazine HCl [From Prolixin] Allergy (Verified 10/17/16 23:08) ARM NUMBNESS guaifenesin [From Prolex D] Allergy (Verified 10/17/16 23:08) Hives lisinopril Allergy (Verified 04/21/17 10:26) Anaphylaxis morphine Allergy (Verified 10/01/20 10:03) Itching Penicillins Allergy (Verified 10/17/16 23:08) Hives phenylephrine HCl [From Prolex D] Allergy (Verified 10/17/16 23:08) Hives nitrofurantoin Adverse Reaction (Verified 08/07/17 23:41) liver failure Home Medications: Calcium Acetate [Phoslo*] 2 cap PO TIDWM 03/05/20 Sertraline [Zoloft*] 50 mg PO DAILY 03/05/20 Trazodone HCl 150 mg PO BEDTIME PRN PRN 03/05/20 Pantoprazole Sodium [Protonix] 1 tab PO DAILY 30 Days #30 tablet. 03/06/20 Gabapentin 1 tab PO BID 07/22/20 Metoprolol Succinate 25 mg PO DAILY 07/22/20 Pravastatin Sodium 1 tab PO DAILY 07/22/20 Doxazosin [Cardura*] 4 mg PO BEDTIME 09/30/20 Furosemide [Lasix*] 40 mg PO BID 09/30/20 Ondansetron [Zofran (Odt)*] 4 mg PO Q8H PRN 14 Days #30 tab 10/01/20 Ascorbate Calcium [Vitamin C] 500 mg PO TID #90 tablet 10/28/20 Nepro Shake [Nepro*] 237 ml PO TID #60 can 11/07/20 Cholecalciferol (Vitamin D3) [Vitamin D 5,000 IU Cap*] 5,000 unit PO DAILY #30 cap 01/16/21 Hydrocodone 5/APAP 325 [[place] 5/325*] 1 tab PO Q6H PRN #30 tab 07/02/21 clonazePAM [Klonopin] 0.5 mg PO TID PRN #60 tablet 07/02/21 Heparin [Heparin 1,000 units/mL *] 6,000 unit IV EVERY HD PRN vial 07/31/21 Mannitol 25% [Mannitol*] 12.5 gm IV EVERY HD PRN vial 07/31/21 Metoclopramide [Reglan*] 5 ml PO TID PRN 07/31/21 - Past Medical/Surgical History Has patient received pneumonia vaccine in the past: No Diabetic: Yes -: DM Type 2 -: Seizure disorder -: ESRD on HD -: DM Gastroparesis -: DM Neuropathy -: Insomnia -: Obesity -: JAYLA -: Hypertension -: Post traumatic stress disorder -: Schizoaffective disorder -: CHF, diastolic -: I/D of the right elbow -: 2 previous C-sections -: Tubal ligation Psychosocial/ Personal History: She is , she has 2 children, she does not work. She lives with her boyfriend and daughter. - Family History Mother -: Hypertension, Diabetes, Cancer, Other (see notes) Notes: hypothyroid, asthma, breast cancer Father -: Diabetes, Cancer Notes: - stomach/ lung/ prostate cancer, diabetes - Social History Smoking Status: Current some day smoker Alcohol use: No CD- Drugs: No Caffeine use: No Physical Examination - Physical Exam General: In no apparent distress, Cooperative HEENT: Atraumatic, Normocephalic Respiratory: Clear to auscultation bilaterally, Normal air movement Cardiovascular: No edema, Regular rate/rhythm, Normal S1 S2, Other (Right upper extremity AV fistula. Right-sided tunneled hemodialysis catheter.) Musculoskeletal: No clubbing, No swelling, No contractures, No erythema Neurological: Normal speech, Sensation intact, Normal affect - Studies Laboratory Data (last 24 hrs) 08/20/21 07:00: WBC 4.10 L D, Hgb 9.0 L, Hct 27.0 L, Plt Count 140 L D 08/20/21 07:00: Sodium 137, Potassium 5.7 H*, BUN 104 H D, Creatinine 13.30 H* D, Glucose 94, Total Bilirubin 0.5, AST 12 L, ALT 17, Alkaline Phosphatase 85, Lipase 268 Assessment and Plan - Problems (Diagnosis) (1) Intractable nausea and vomiting Current Visit: No Status: Acute (2) Missed dialysis Current Visit: No Status: Acute (3) COPD (chronic obstructive pulmonary disease) Onset Date: 08/09/17 Current Visit: No Status: Chronic Qualifiers: (4) Diabetes mellitus type II, uncontrolled Onset Date: 02/09/17 Current Visit: No Status: Chronic Qualifiers: (5) ESRD (end stage renal disease) Current Visit: No Status: Chronic - Advance Directives Does patient have a Living Will: No Does patient have a Durable POA for Healthcare: No Physician Review Additional Text: Assessment Patient is a 40-year-old female with a past medical history of u ncontrolled type 2 diabetes mellitus, hypertension and ESRD noncompliant with hemodialysis. She is presenting with shortness of breath, nausea and vomiting after she is gone a week without being dialyzed. Missed hemodialysis. History of ESRD Uncontrolled type 2 diabetes mellitus Hypertension Plan: Admit under observation with telemetry Nephrology has been contacted by ER. Patient will be dialyzed today We will start patient on Zofran for intractable nausea and vomiting She can probably be discharged tomorrow Resume home medications once reconciled DVT prophylaxis with heparin subcu.
[2021-08-20] MEDS: HEPARIN 5000 UNIT/ML 1 ML VIAL SQ SCH (16:33)
[2021-08-20] MEDS ORDERED: HYDROCODONE/APAP 5/325 MG TAB PO PRN (17:09)
[2021-08-20] MEDS ORDERED: HOME MED 1 EA UNK (Trazodone Hcl [Trazodone Hcl] 100 MG Tablet) PO PRN (17:09)
[2021-08-20] MEDS ORDERED: NITROGLYCERIN 1 GM PKT TD ONE (17:23)
[2021-08-20] MEDS ORDERED: TRAZODONE 150 MG TAB PO PRN (17:23)
[2021-08-20] MEDS ORDERED: cloNIDine HCL 0.1 MG TAB ONE ×2 (17:24→21:33)
[2021-08-20] MEDS ORDERED: HYDROMORPHONE ORAL 2 MG TAB ONE (17:35)
[2021-08-20] MEDS: cloNIDine HCL 0.1 MG TAB PO SCH ×2 (17:58→21:00)
[2021-08-20] MEDS: FUROSEMIDE 40 MG TABLET PO SCH (18:00)
[2021-08-20] MEDS: HYDROMORPHONE HCL 1 MG/ML INJ IV PRN ×2 (18:08→23:57)
[2021-08-20] MEDS: ONDANSETRON 4 MG/2 ML VIAL IV PRN (18:09)
[2021-08-20] MEDS ORDERED: FUROSEMIDE 40 MG TABLET ONE (18:20)
[2021-08-20] MEDS ORDERED: DIPHENHYDRAMINE 50 MG/ML VIAL ONE (19:34)
[2021-08-20] MEDS ORDERED: DIPHENHYDRAMINE 50 MG/ML VIAL IV ONE (19:50)
--- NOTE | 2021-08-20 20:47 | P.CNS ---
Date of Consult: 08/20/21 Reason for Consult: ESRD Requesting Physician: Prince Naun Nolen Chief Complaint: Missed dialysis sessions History of Present Illness: Patient is a 40-year-old female with a past medical history of type 2 diabetes mellitus, hypertension and ESRD on hemodialysis. She is presenting to the hospital complaining of shortness of breath. Her symptoms have been ongoing for the past week. She has missed her hemodialysis sessions during this time. She follows up with Dr. Luis garcia as outpatient. The first time she missed her session was because she was not feeling well. She missed another session and because she can set up her alarm clock on time and missed her dialysis appointment. She is also having nausea and vomiting. Of note, patient has a history of gastroparesis. 06:39 This 40 yrs old Female presents to ER via Ambulatory with complaints of pm1 Abdominal Pain, Missed Dialysis. 06:39 The patient presents with abdominal pain in the epigastric area. Onset: The pm1 symptoms/episode began/occurred yesterday. The symptoms do not radiate. Associated signs and symptoms: Pertinent positives: nausea and vomiting, shortness of breath, x 2, Pertinent negatives: chest pain, diarrhea, dysuria, fever. The symptoms are described as achy, similar to prior gastroparesis. Modifying factors: the symptoms are aggravated by missed dialysis for over one week. Last dialysis treatment last Wednesday. The patient has experienced similar episodes in the past, multiple times, and the symptoms today are exactly the same, to previous gastroparesis. The patient has not recently seen a physician, Financial Aid Administrator Dr. Morin. Allergies zolpidem tartrate [From Ambien] Allergy (Intermediate, Verified 10/17/16 23:08) Itching/Hives/Rash codeine [Codeine] Allergy (Verified 10/17/16 23:08) Hives fluphenazine enanthate [From Prolixin] Allergy (Verified 10/17/16 23:08) ARM NUMBNESS fluphenazine HCl [From Prolixin] Allergy (Verified 10/17/16 23:08) ARM NUMBNESS guaifenesin [From Prolex D] Allergy (Verified 10/17/16 23:08) Hives lisinopril Allergy (Verified 04/21/17 10:26) Anaphylaxis morphine Allergy (Verified 10/01/20 10:03) Itching Penicillins Allergy (Verified 10/17/16 23:08) Hives phenylephrine HCl [From Prolex D] Allergy (Verified 10/17/16 23:08) Hives nitrofurantoin Adverse Reaction (Verified 08/07/17 23:41) liver failure Home medications list reviewed: Yes Home Medications: Calcium Acetate [Phoslo*] 2 cap PO TIDWM 03/05/20 Sertraline [Zoloft*] 50 mg PO DAILY 03/05/20 Trazodone HCl 150 mg PO BEDTIME PRN PRN 03/05/20 Pantoprazole Sodium [Protonix] 1 tab PO DAILY 30 Days #30 tablet. 03/06/20 Gabapentin 1 tab PO BID 07/22/20 Metoprolol Succinate 25 mg PO DAILY 07/22/20 Pravastatin Sodium 1 tab PO DAILY 07/22/20 Doxazosin [Cardura*] 4 mg PO BEDTIME 09/30/20 Furosemide [Lasix*] 40 mg PO BID 09/30/20 Ondansetron [Zofran (Odt)*] 4 mg PO Q8H PRN 14 Days #30 tab 10/01/20 Ascorbate Calcium [Vitamin C] 500 mg PO TID #90 tablet 10/28/20 Nepro Shake [Nepro*] 237 ml PO TID #60 can 11/07/20 Cholecalciferol (Vitamin D3) [Vitamin D 5,000 IU Cap*] 5,000 unit PO DAILY #30 cap 01/16/21 Hydrocodone 5/APAP 325 [[place] 5/325*] 1 tab PO Q6H PRN #30 tab 07/02/21 clonazePAM [Klonopin] 0.5 mg PO TID PRN #60 tablet 07/02/21 Heparin [Heparin 1,000 units/mL *] 6,000 unit IV EVERY HD PRN vial 07/31/21 Mannitol 25% [Mannitol*] 12.5 gm IV EVERY HD PRN vial 07/31/21 Metoclopramide [Reglan*] 5 ml PO TID PRN 07/31/21 - Past Medical/Surgical History Diabetic: Yes -: DM Type 2 -: Seizure disorder -: ESRD on HD -: DM Gastroparesis -: DM Neuropathy -: Insomnia -: Obesity -: JAYLA -: Hypertension -: Post traumatic stress disorder -: Schizoaffective disorder -: CHF, diastolic -: I/D of the right elbow -: 2 previous C-sections -: Tubal ligation Psychosocial/ Personal History: She is , she has 2 children, she does not work. She lives with her boyfriend and daughter. - Family History Mother Medical History: Hypertension, Diabetes, Cancer, Other (see notes) Notes: hypothyroid, asthma, breast cancer Father Medical History: Diabetes, Cancer Notes: - stomach/ lung/ prostate cancer, diabetes - Social History Smoking Status: Current some day smoker Alcohol use: No CD- Drugs: No Caffeine use: No Review of Systems 10-point ROS is otherwise unremarkable General: Weakness, Malaise Neurological: Weakness Physical Examination Temp Pulse Resp BP Pulse Ox 97.9 F 85 18 205/88 H 96 08/20/21 16:28 08/20/21 18:00 08/20/21 18:08 08/20/21 18:00 08/20/21 18:08 General: Oriented x3, Cooperative HEENT: Atraumatic Neck: Supple Respiratory: Normal air movement Cardiovascular: Regular rate/rhythm, Edema Gastrointestinal: Soft and benign, Non-distended Musculoskeletal: No clubbing, No contractures Integumentary: No rashes, No cyanosis Neurological: Normal speech Laboratory Data (last 24 hrs) 08/20/21 07:00: WBC 4.10 L D, Hgb 9.0 L, Hct 27.0 L, Plt Count 140 L D 08/20/21 07:00: Sodium 137, Potassium 5.7 H*, BUN 104 H D, Creatinine 13.30 H* D, Glucose 94, Total Bilirubin 0.5, AST 12 L, ALT 17, Alkaline Phosphatase 85, Lipase 268 Imagings Data: EXAM DESCRIPTION: RAD - Chest Single View - 08/20/2021 7:30 am CLINICAL HISTORY: SOB COMPARISON: Chest Single View dated 08/08/2021; Chest Single View dated 07/30/2021; Chest Single View dated 06/30/2021; Chest Single View dated 03/31/2021 FINDINGS: Lines: Dialysis catheter. Lungs: No evidence of edema or pneumonia. Decreased vascular congestion from prior. Pleural: No significant pleural effusions or pneumothorax. Cardiac: Cardiomegaly. Bones: No acute fractures. Other: IMPRESSION: No acute cardiopulmonary disease. Vascular congestion/edema on the prior radiograph has improved. Conclusions/Impression: ESRD -Acute HD today Hyperkalemia -Acute HD today HTN with CKD/ CHF -Restart home medications -Clonidine prn Diastolic CHF, A/C -HD TIW DM II with CKD, Polyneuropathy, Gastroparesis -RISS Mild malnutrition -Start Nepro Anemia in CKD -Retacrit X1 CKD MBD -Start Vitamin D Thank you kindly for the consultation Case reviewed with Dr. Nolen
[2021-08-20] MEDS: ASCORBIC ACID 500 MG TABLET PO SCH (21:00)
[2021-08-20] MEDS: GABAPENTIN 100 MG CAP PO SCH (21:00)
[2021-08-20] MEDS ORDERED: HOME MED 1 EA UNK (Ascorbate Calcium [Vitamin C] 500 MG Tablet) PO SCH (21:00)
[2021-08-20] MEDS ORDERED: DOXAZOSIN 4 MG TAB PO SCH (21:00)
[2021-08-20] MEDS: NEPRO SHAKE 237 ML CAN PO SCH (21:00)
[2021-08-20] MEDS ORDERED: ASCORBIC ACID 500 MG TABLET ONE (21:33)
[2021-08-20] MEDS ORDERED: LABETALOL 20 MG/4ML SYRINGE IV ONE (21:33)
[2021-08-20] MEDS ORDERED: clonazePAM 0.5 MG TAB ONE (21:45)
[2021-08-20] MEDS: clonazePAM 0.5 MG TAB PO PRN (21:46)
[2021-08-21] MEDS: HEPARIN 5000 UNIT/ML 1 ML VIAL SQ SCH ×3 (00:40→17:25)
[2021-08-21] MEDS: LABETALOL 20 MG/4ML SYRINGE IV PRN ×2 (00:59→21:26)
[2021-08-21] MEDS: HYDROMORPHONE HCL 1 MG/ML INJ IV PRN ×2 (05:30→09:09)
[2021-08-21] MEDS ORDERED: METOPROLOL XL 25 MG TAB PO SCH (09:00)
[2021-08-21] MEDS ORDERED: EPOETIN ALFA 10,000 UNIT/ML VIAL SQ SCH (09:00)
[2021-08-21] MEDS ORDERED: HOME MED 1 EA UNK (Pantoprazole Sodium [Protonix] 20 MG Tablet.Dr) PO SCH (09:00)
[2021-08-21] MEDS: NEPRO SHAKE 237 ML CAN PO SCH ×4 (09:00→21:00)
[2021-08-21] MEDS: CALCITROL 0.25 MCG CAP PO SCH (09:04)
[2021-08-21] MEDS: cloNIDine HCL 0.1 MG TAB PO SCH ×3 (09:04→21:26)
[2021-08-21] MEDS: FUROSEMIDE 40 MG TABLET PO SCH ×2 (09:07→17:24)
[2021-08-21] MEDS: SERTRALINE HCL 50 MG TAB PO SCH (09:07)
[2021-08-21] MEDS: SEVELAMER CARBONATE 800 MG TABLET PO SCH ×3 (09:07→17:24)
[2021-08-21] MEDS: VITAMIN D 5,000 UNIT CAP PO SCH (09:07)
[2021-08-21] MEDS: MULTIVITAMINS,THERAPEUT 1 TAB PO SCH (09:08)
[2021-08-21] MEDS: GABAPENTIN 100 MG CAP PO SCH (09:08)
[2021-08-21] MEDS: PANTOPRAZOLE 40MG TABLET PO SCH (09:08)
[2021-08-21] MEDS: ASCORBIC ACID 500 MG TABLET PO SCH ×3 (09:08→21:23)
[2021-08-21] MEDS: ONDANSETRON 4 MG/2 ML VIAL IV PRN (09:09)
[2021-08-21 10:58] LABS: Potassium 3.9 mmol/L (3.5-5.1)
--- NOTE | 2021-08-21 10:59 | P.PN ---
Date of Service: 08/21/21 Vital Signs Temp Pulse Resp BP Pulse Ox 97.6 F 60 16 161/78 H 92 08/21/21 08:00 08/21/21 09:07 08/21/21 09:09 08/21/21 09:07 08/21/21 09:09 Medications Hydrocodone Bitart/Acetaminophen (Hydrocodone/Apap 5/325 Mg Tab) 1 tab PO Q6H PRN PRN Reason: MOD-SEV PAIN Ascorbic Acid (Ascorbic Acid 500 Mg Tablet) 500 mg PO TID [facility] Last Admin: 08/21/21 09:08 Dose: 500 mg Documented by: Calcitriol (Calcitrol 0.25 Mcg Cap) 0.5 mcg PO DAILY [facility] Last Admin: 08/21/21 09:04 Dose: 0.5 mcg Documented by: Cholecalciferol (Vitamin D 5,000 Unit Cap) 5,000 unit PO DAILY [facility] Last Admin: 08/21/21 09:07 Dose: 5,000 unit Documented by: Clonazepam (Clonazepam 0.5 Mg Tab) 0.5 mg PO TID PRN PRN Reason: ANXIETY Last Admin: 08/20/21 21:46 Dose: 0.5 mg Documented by: Clonidine HCl (Clonidine Hcl 0.1 Mg Tab) 0.2 mg PO TID [facility] Last Admin: 08/21/21 09:04 Dose: 0.2 mg Documented by: Doxazosin Mesylate (Doxazosin 4 Mg Tab) 4 mg PO BID [facility] Enteral Nutritional Formula (Nepro Shake 237 Ml Can) 240 ml PO TID [facility] Last Admin: 08/21/21 09:10 Dose: 240 ml Documented by: Furosemide (Furosemide 40 Mg Tablet) 40 mg PO BIDL [facility] Last Admin: 08/21/21 09:07 Dose: 40 mg Documented by: Gabapentin (Gabapentin 100 Mg Cap) 100 mg PO BID [facility] Last Admin: 08/21/21 09:08 Dose: 100 mg Documented by: Heparin Sodium (Porcine) (Heparin 1,000 Unit/Ml Vial) 6,000 unit IV EVERY HD PRN PRN Reason: AFTER EACH Heparin Sodium (Porcine) (Heparin 5000 Unit/Ml 1 Ml Vial) 5,000 unit SQ Q8HR [facility] Last Admin: 08/21/21 09:10 Dose: 5,000 unit Documented by: Heparin Sodium (Porcine) (Heparin 1,000 Unit/Ml Vial) 3,000 unit IV EVERY HD PRN PRN Reason: INTRADIALYSIS BOLUS Hydromorphone HCl (Hydromorphone Hcl 1 Mg/Ml Inj) 1 mg IV Q4H PRN PRN Reason: Pain scale 8-10 (Severe) Last Admin: 08/21/21 09:09 Dose: 1 mg Documented by: Albumin Human (Albumin 25%) 50 mls @ 100 mls/hr IV EVERY HD [facility] Labetalol HCl (Labetalol 20 Mg/4ml Syringe) 10 mg IV Q4HR PRN PRN Reason: Give for SBP > 180 mmHG Last Admin: 08/21/21 00:59 Dose: 10 mg Documented by: Mannitol (Mannitol 25% 12.5 Gm/50 Ml Vial) 12.5 gm IV EVERY HD PRN PRN Reason: Titrate to SBP (MUST DEFINE) Metoclopramide HCl (Metoclopramide 10 Mg/2ml Inj) 10 mg IV 1X [facility] Metoprolol Succinate (Metoprolol Xl 25 Mg Tab) 25 mg PO DAILY [facility] Last Admin: 08/21/21 09:07 Dose: 25 mg Documented by: Ondansetron HCl (Ondansetron 4 Mg/2 Ml Vial) 4 mg IV Q6H PRN PRN Reason: NAUSEA / VOMITING Last Admin: 08/21/21 09:09 Dose: 4 mg Documented by: Pantoprazole Sodium (Pantoprazole 40mg Tablet) 40 mg PO DAILY [facility] Last Admin: 08/21/21 09:08 Dose: 40 mg Documented by: Quetiapine Fumarate (Quetiapine 25 Mg Tab) 25 mg PO BEDTIME [facility] Sertraline HCl (Sertraline Hcl 50 Mg Tab) 50 mg PO DAILY [facility] Last Admin: 08/21/21 09:07 Dose: 50 mg Documented by: Sevelamer Carbonate (Sevelamer Carbonate 800 Mg Tablet) 800 mg PO TIDWM [facility] Last Admin: 08/21/21 09:07 Dose: 800 mg Documented by: Vitamin B Complex/Vit C/Folic Acid (Multivitamins,Therapeut 1 Tab) 1 tab PO DAILY [facility] Last Admin: 08/21/21 09:08 Dose: 1 tab Documented by: Assessment/ Plan: Nephrology Reports nausea and diarrhea KO No dyspnea No chest pain No acute events overnight but difficulty to control BP Vitals, medications, blood work and imaging reviewed in the chart. General: Oriented x3, Cooperative HEENT: Atraumatic Neck: Supple Respiratory: Normal air movement Cardiovascular: Regular rate/rhythm, Edema Gastrointestinal: Soft and benign, Non-distended Musculoskeletal: No clubbing, No contractures Integumentary: No rashes, No cyanosis Neurological: Normal speech Laboratory Data (last 24 hrs) 08/20/21 07:00: WBC 4.10 L D, Hgb 9.0 L, Hct 27.0 L, Plt Count 140 L D 08/20/21 07:00: Sodium 137, Potassium 5.7 H*, BUN 104 H D, Creatinine 13.30 H* D, Glucose 94, Total Bilirubin 0.5, AST 12 L, ALT 17, Alkaline Phosphatase 85, Lipase 268 Imagings Data: EXAM DESCRIPTION: RAD - Chest Single View - 08/20/2021 7:30 am CLINICAL HISTORY: SOB COMPARISON: Chest Single View dated 08/08/2021; Chest Single View dated 07/30/2021; Chest Single View dated 06/30/2021; Chest Single View dated 03/31/2021 FINDINGS: Lines: Dialysis catheter. Lungs: No evidence of edema or pneumonia. Decreased vascular congestion from prior. Pleural: No significant pleural effusions or pneumothorax. Cardiac: Cardiomegaly. Bones: No acute fractures. Other: IMPRESSION: No acute cardiopulmonary disease. Vascular congestion/edema on the prior radiograph has improved. Conclusions/Impression: ESRD -HD TIW -Extra HD as needed Hyperkalemia -HD TIW -Renal Diet HTN with CKD/ CHF -Increase Doxazosin BID -Clonidine prn Diastolic CHF, A/C -HD with UF TIW DM II with CKD, Polyneuropathy, Gastroparesis -RISS -ADA diet -Reglan 10mg IV X1 today Mild malnutrition -Continue Nepro Anemia in CKD -Retacrit TIW CKD MBD -Continue Vitamin D -Continue Renvela
[2021-08-21] MEDS ORDERED: METOCLOPRAMIDE 10 MG/2mL INJ IV SCH (11:00)
[2021-08-21] MEDS ORDERED: DOXAZOSIN 2 MG TAB ONE (11:29)
[2021-08-21] MEDS: DOXAZOSIN 4 MG TAB PO SCH ×2 (11:34→21:00)
--- NOTE | 2021-08-21 15:19 | P.PN ---
Subjective Date of Service: 08/21/21 Chief Complaint: Missed dialysis sessions Subjective: Improving (Remains elevated. She was taken to another dialysis session today.) Physical Examination - Vital Signs Temperature: 97.7 F Blood Pressure: 160/73 Pulse: 58 Respirations: 16 Pulse Ox (%): 100 - Physical Exam General: Obese, Other (Drowsy) HEENT: Atraumatic, Normocephalic Cardiovascular: Regular rate/rhythm, Normal S1 S2, Other (Right-sided AV fistula) - Studies Laboratory Data (last 24 hrs) 08/21/21 10:12: Sodium 138, Potassium 3.9, BUN 43 H D, Creatinine 7.13 H* D, Glucose 138 H Assessment And Plan - Current Problems (Diagnosis) (1) Intractable nausea and vomiting Current Visit: No Status: Acute (2) Missed dialysis Current Visit: No Status: Acute (3) COPD (chronic obstructive pulmonary disease) Onset Date: 08/09/17 Current Visit: No Status: Chronic Qualifiers: (4) Diabetes mellitus type II, uncontrolled Onset Date: 02/09/17 Current Visit: No Status: Chronic Qualifiers: (5) ESRD (end stage renal disease) Current Visit: No Status: Chronic Physician Review Additional Text: Assessment Patient is a 40-year-old female with a past medical history of uncontrolled type 2 diabetes mellitus, hypertension and ESRD noncompliant with hemodialysis. She is presenting with shortness of breath, nausea and vomiting after she is gone a week without being dialyzed. Missed hemodialysis. History of ESRD Uncontrolled type 2 diabetes mellitus Hypertension Plan: Patient will need another session of dialysis. She continues to be severely hypertensive. Will monitor blood pressure after her second hemodialysis session Hyperkalemia has resolved Discharge after she has been cleared by nephrology I am holding pain and sedating medications since she appeared drowsy today DVT prophylaxis with heparin subcu. She will need to be converted to inpatient status 08/21/21 15:21
[2021-08-21] MEDS ORDERED: QUETIAPINE 25 MG TAB PO SCH (21:00)
[2021-08-21 22:05] VITALS: O2SAT 100
[2021-08-22] MEDS ORDERED: HYDRALAZINE HCL 20 MG/ML VIAL IV ONE (00:08)
[2021-08-22] MEDS: HEPARIN 5000 UNIT/ML 1 ML VIAL SQ SCH ×2 (00:21→09:52)
[2021-08-22] MEDS: HYDRALAZINE HCL 25 MG TABLET PO SCH ×3 (07:04→14:33)
[2021-08-22] MEDS ORDERED: LABETALOL 20 MG/4ML SYRINGE IV PRN (08:00)
[2021-08-22] MEDS: METOPROLOL XL 50 MG TAB PO SCH ×2 (08:00→09:00)
[2021-08-22] MEDS: VITAMIN D 5,000 UNIT CAP PO SCH (09:00)
[2021-08-22] MEDS: DOXAZOSIN 4 MG TAB PO SCH (09:00)
[2021-08-22] MEDS: MULTIVITAMINS,THERAPEUT 1 TAB PO SCH (09:46)
[2021-08-22] MEDS: PANTOPRAZOLE 40MG TABLET PO SCH (09:48)
[2021-08-22] MEDS: SERTRALINE HCL 50 MG TAB PO SCH (09:50)
[2021-08-22] MEDS: CALCITROL 0.25 MCG CAP PO SCH (09:51)
[2021-08-22] MEDS: ASCORBIC ACID 500 MG TABLET PO SCH ×2 (09:51→14:33)
[2021-08-22] MEDS: cloNIDine HCL 0.1 MG TAB PO SCH ×2 (09:51→14:32)
[2021-08-22] MEDS: FUROSEMIDE 40 MG TABLET PO SCH (09:51)
[2021-08-22] MEDS: SEVELAMER CARBONATE 800 MG TABLET PO SCH ×2 (09:56→12:00)
[2021-08-22] MEDS: NEPRO SHAKE 237 ML CAN PO SCH ×2 (09:57→14:33)
[2021-08-22] MEDS: clonazePAM 0.5 MG TAB PO PRN (15:28)
--- NOTE | 2021-08-22 15:58 | P.DS ---
Admission Date: 08/21/21 Discharge Date: 08/22/21 Reason for Admission: Missed dialysis sessions - Problems (1) Intractable nausea and vomiting Current Visit: No Status: Acute (2) Missed dialysis Current Visit: No Status: Acute (3) COPD (chronic obstructive pulmonary disease) Onset Date: 08/09/17 Current Visit: No Status: Chronic Qualifiers: (4) Diabetes mellitus type II, uncontrolled Onset Date: 02/09/17 Current Visit: No Status: Chronic Qualifiers: (5) ESRD (end stage renal disease) Current Visit: No Status: Chronic Brief History of Present Illness: Patient is a 40-year-old female with a past medical history of type 2 diabetes mellitus, hypertension and ESRD on hemodialysis. She is presenting to the hospital complaining of shortness of breath. Her symptoms have been ongoing for the past week. She has missed her hemodialysis sessions during this time. She follows up with Dr. Luis garcia as outpatient. The first time she missed her session was because she was not feeling well. She missed another session and because she can set up her alarm clock on time and missed her dialysis appointment. She is also having nausea and vomiting. Of note, patient has a history of gastroparesis. Hospital Course: Patient did not undergo HD for at least 1 week. She received at least 3 sessions of dialysis during this stay. Her BP remained very elevated throughout her hospitalization. We have made some adjustment to her BP regimen. Unfortunately, she did not want to stay any longer. She left AMA. Vital Signs/Physical Exam: Temp Pulse Resp BP Pulse Ox 97.8 F 64 20 181/81 H 64 L 08/22/21 14:30 08/22/21 14:32 08/22/21 14:30 08/22/21 14:32 08/22/21 14:30 Laboratory Data at Discharge: WBC 4.10 K/uL (4.3-10.9) L D 08/20/21 07:00 Hgb 9.0 g/dL (12.0-15.0) L 08/20/21 07:00 Hct 27.0 % (36.0-45.0) L 08/20/21 07:00 Plt Count 140 K/uL (152-406) L D 08/20/21 07:00 Sodium 138 mmol/L (136-145) 08/21/21 10:12 Potassium 3.9 mmol/L (3.5-5.1) 08/21/21 10:12 BUN 43 mg/dL (7-18) H D 08/21/21 10:12 Creatinine 7.13 mg/dL (0.55-1.3) H* D 08/21/21 10:12 Glucose 138 mg/dL (74-106) H 08/21/21 10:12 Total Bilirubin 0.5 mg/dL (0.2-1.0) 08/20/21 07:00 AST 12 U/L (15-37) L 08/20/21 07:00 ALT 17 U/L (12-78) 08/20/21 07:00 Alkaline Phosphatase 85 U/L (45-117) 08/20/21 07:00 Lipase 268 U/L (73-393) 08/20/21 07:00 Home Medications: Calcium Acetate [Phoslo*] 2 cap PO TIDWM 03/05/20 Sertraline [Zoloft*] 50 mg PO DAILY 03/05/20 Pantoprazole Sodium [Protonix] 1 tab PO DAILY 30 Days #30 tablet. 03/06/20 Gabapentin 1 tab PO BID 07/22/20 Metoprolol Succinate 25 mg PO DAILY 07/22/20 Pravastatin Sodium 1 tab PO DAILY 07/22/20 Doxazosin [Cardura*] 4 mg PO BEDTIME 09/30/20 Furosemide [Lasix*] 40 mg PO BID 09/30/20 Ondansetron [Zofran (Odt)*] 4 mg PO Q8H PRN 14 Days #30 tab 10/01/20 Ascorbate Calcium [Vitamin C] 500 mg PO TID #90 tablet 10/28/20 Nepro Shake [Nepro*] 237 ml PO TID #60 can 11/07/20 Cholecalciferol (Vitamin D3) [Vitamin D 5,000 IU Cap*] 5,000 unit PO DAILY #30 cap 01/16/21 Hydrocodone 5/APAP 325 [[place] 5/325*] 1 tab PO Q6H PRN #30 tab 07/02/21 clonazePAM [Klonopin] 0.5 mg PO TID PRN #60 tablet 07/02/21 Heparin [Heparin 1,000 units/mL *] 6,000 unit IV EVERY HD PRN vial 07/31/21 Metoclopramide [Reglan*] 5 ml PO TID PRN 07/31/21 Buspirone HCl [Buspar] 1 tab PO BID 08/22/21 Divalproex Sodium [Depakote] 1 tab PO BID 08/22/21 Quetiapine Fumarate [Seroquel] 25 mg PO BEDTIME 08/22/21 Followup: Unknown,U [Primary Care Provider] -
[2021-08-22 16:48] VITALS: BP 170/69; TEMP 98.6
[2021-08-22] MEDS ORDERED: EPOETIN ALFA-EPBX 10,000 UNIT/ML VIAL SQ SCH (17:00)
== END 2021-08-22 16:45 | disposition left against medical advice (07) | DRG 640 ==
LOC: ER 05:33 → ERHOLD 11:09 → 4TH 23:41 → OBSVTOIN 08-21 13:20
PROVIDERS: ADMIT Internal Medicine; ATTEND Internal Medicine
PROC: 5A1D70Z Performance of Urinary Filtration, Intermittent, Less than 6 Hours Per Day (ICD-10-PCS; principal; 2021-08-21)
DX: E87.5 Hyperkalemia (principal); N18.6 End stage renal disease; I50.33 Acute on chronic diastolic (congestive) heart failure; I13.2 Hypertensive heart and chronic kidney disease with heart failure and with stage 5 chronic kidney disease, or end stage renal disease; E44.1 Mild protein-calorie malnutrition; E11.22 Type 2 diabetes mellitus with diabetic chronic kidney disease; E11.42 Type 2 diabetes mellitus with diabetic polyneuropathy; E11.43 Type 2 diabetes mellitus with diabetic autonomic (poly)neuropathy; K31.84 Gastroparesis; D63.1 Anemia in chronic kidney disease; M89.9 Disorder of bone, unspecified; J44.9 Chronic obstructive pulmonary disease, unspecified; F17.200 Nicotine dependence, unspecified, uncomplicated; Z88.5 Allergy status to narcotic agent; Z88.8 Allergy status to other drugs, medicaments and biological substances; Z88.0 Allergy status to penicillin; Z99.2 Dependence on renal dialysis; Z68.29 Body mass index [BMI] 29.0-29.9, adult; Z98.51 Tubal ligation status; Z53.29 Procedure and treatment not carried out because of patient's decision for other reasons; Z79.899 Other long term (current) drug therapy; Z91.15 Patient's noncompliance with renal dialysis; Z20.822 Contact with and (suspected) exposure to COVID-19
CPT/HCPCS: 0240U; 36415; 71045; 80048; 80076; 82947; 83690; 85025; 90935; 93005; 96374; 96375; 99285; G0378; J0360; J0610; J1170; J1200; J1644; J2405; J2765; Q5105; Q5106

== ENCOUNTER 2021-09-07 19:15 | Inpatient (IN) | payer OTHER ==
--- OUTSIDE RECORDS SUMMARY | 2021-09-07 19:39 | XMS REPORT | Continuity of Care Document ---
:1980 Author Organization Formerly [facility] t Address [address] [place] [address] Care Team Providers Name Role Phone Vivien Morin DO Primary Care Physician Guillaume_Dinah Attending Clinician Unavailable Kasey Ann RN Attending Clinician Anthony Attending Clinician Unavailable Pat BURNS, Cathie Attending [...] Policy Number Effective Date Expiration Date S [facility] [id number] 2021 (MEDICARE 00:00:00 REPLACEMENT HMO) Advance Directives Directive Decision Effective Termination Comments Source Date Date Healthcare Agents on N/A [facility] File[facility] Agent Medical RelationshipCommunicationChan Soon-[facility] FoundSibling3 - First Alternate Agent (Medical Power of Clinical Support Associate) Problems Condition Condition Condition Status Onset Resolution Last Treating Co mments Source Name Details Category Date Date Treatment Clinician Date AVF AVF Disease Active Univers (arteriove (arteriove 9 it y of nous nous 00:00: [place] fistula) fistula) 00 Medica l Branch End [...] Vin GASTROPARE 00 HELENA/IBS-D /ANEMIA Active 01/03/2021 [facility] NEW Diagnosis Active 2020-12-24 Mem oria PATIENT GI 4-26 10:39:00 l CONSULT NEW 00:00: Vin REFRACTORY PATIENT GI 00 GASTRO CONSULT REFRACTORY GASTRO Active 10/14/2020 [facility] Malfunctio Malfunctio Disease Active Overview : Univers n of n of 6-03 Formattin ity of arterioven arterioven 00:00: g of this [place] ous ous 00 note Medical dialysis dialysis might be Bran ch fistula, fistula, different initial initial from the encounter encounter original. Added automatic ally from request for surgery [id number] Candidiasi Candidiasi Disease Active U nivers s of vulva s of vulva 2-18 it y of and vagina [place] Screening Screening Disease Active Uni vers for breast for breast 2-18 it y of cancer cancer 00:00: [place] 00 Medical Branch NEW Diagnosis Active 2018-07-26 Mem oria EVALUATION - 09:39:00 l NEW 00:00: [place] EVALUATION 00 Active 07/12/2018 [facility] Pyogenic Pyogenic Disease Active 2017-06 Overview: Un lori granuloma granuloma 0-17 Formattin i ty of of of 00:00: g of this [place] conjunctiv conjunctiv 00 note Me dical a, right a, right might be Bran ch different from the original. Added automatic ally from request for surgery [id number] Right eye Right eye Disease Active Overview: Univers affected affected 02-22 Formattin ity of by by 00:00: g of this [place] proliferat proliferat 00 note Me dical montse montse might be Branch diabetic diabetic different retinopath retinopath from the y with y with original. traction traction Added retinal retinal automatic detachment detachment ally from not not request involving involving for macula, macula, surgery associated associated [id number] with type with type 1 diabetes 1 diabetes mellitus mellitus Pain Pain Disease Active Univers management management 01-18 it y of 00:00: [place] 00 Medical Branch Blind Blind Disease Active Overview: Univer s painful painful 12-16 Formattin ity o f eye eye 00:00: g of this [place] 00 note Medical might be Branch different from the original. Eviscerat ion OS on 8 - Dr. 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 Added automatic ally from request for surgery [id number] ESRD (end ESRD (end Disease Active Overview: Univers stage stage 6-12 Formattin ity of renal renal 00:00: g of this [place] disease) disease) 00 note Medica l on on might be Branch dialysis dialysis different from the original. Added automatic ally from request for surgery [id number] Diabetes Diabetes Disease Active Metho di mellitus [...] Added automatic ally from request for surgery [id number] Neovascula Neovascula Disease Active 2018-0 U nivers r r 1-18 ity of glaucoma, glaucoma, 00:[place] left [place] left eye 00 Medica l Branch Increased Increased Disease Active Uni vers intraocula intraocula 1-18 it y of r pressure r pressure [place] Fall Fall Disease Active 2016-06 Univers 0-13 ity of 00:00: [place] 00 Medical Branch Pneumonia Pneumonia Disease Active 2016-06 Uni vers 0-11 ity of 00:00: [place] Medical Branch Diabetes Diabetes Disease Active 2016-06 Overview: Un lori mellitus mellitus 0-05 Formattin ity of 00:00: g of this [place] 00 note Medical might be Branch different from the original. Added automatic ally from request for surgery [id number] Pseudotumo Pseudotumo Disease Active U nivers r cerebri r cerebri 9-25 ity of 00:00: [place] 00 Medical Branch Peripheral Peripheral Disease Active U nivers neuropathy neuropathy 7-16 it y of 00:00: [place] [facility] Branch Liver Liver Disease Active [facility] failure[facility] Medical 00 Center SANJUANA (acute SANJUANA (acute Disease Active [facility] kidney kidney [facility] - injury) injury) 00:00: Medical 00 [...] St 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 716 Pati kes - type 2 type 2 [...] St 7-16 [facility] 00:[facility] Medical 00 [place] Bipolar Bipolar Disease Active [facility] disorder disorder 01-[facility] 00:[facility] Medical 00 [place] Hypertensi Hypertensi Disease Active [facility] ve ve 01-[facility] emergency emergency 00:00: Medi [place] 00 Center ACUTE RESP Diagnosis Active 2016-09-09 Memoria FAILURE 2- 09:11:00 l ACUTE 00:00: [place] RESP 00 FAILURE Active 07/23/2016 [facility] CONGESTION Diagnosis Active 2016-07-24 Memoria AMD 2- 01:49:00 l DIARRHEA 00:00: [place] CONGESTION 00 AMD DIARRHEA Active 07/23/2016 [facility] Congestive Congestive Disease Active 2015-06 U T heart heart - Health failure failure 00:00: (CHF) (CHF) 00 SOB/SWELLI Diagnosis [facility] 2015[facility]062016-06-[facility]- 15:48:00 l 00:00: Vin SOB/SWELLI 00 NG Active 6 [facility] CHF/RENAL Diagnosis Active 2015-062016-06-24 Memoria DISEASE 2- 15:35:00 l 00:00: [place] CHF/RENAL 00 DISEASE Active 06/10/2016 [facility] Obesity Obesity Disease Active 2015-06 Univers (BMI (BMI 0-12 ity of 30-39.9) 30-39.9) 00:00: [place] [address] Medical Branch Hyperosmol Hyperosmol Disease Active 2015-06 U jessicaers ar ar 0-12 ity of non-ketoti non-ketoti 00:00[place] in c state in 00 Me dical patient patient Branch with 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 Hyperglyce Hyperglyce Disease Active 2015-06 U viviana maryam maryam 0-11 ity of 00:00: [place] [address] Medical Branch Diabetic Diabetic Disease Active Unive rs ulcer of ulcer of 5-07 ity of both feet both feet 00:00: Amisha lombardo associated associated 00 Me dical with type with type Bran ch 2 diabetes 2 diabetes mellitus mellitus SANJUANA (acute SANJUANA (acute Disease Active U viviana kidney kidney 5-07 ity of injury) injury) 00:00: [place] [id number] Medical Branch Depression Depression Disease Active U [...] 00:00: [place] cancer in cancer in 00 [facility] female female Branch Family Family Disease [...] Memoria PAIN, 1-06 05:44:00 l SEIZURES 00:00: [place] ABDOMINAL 00 PAIN, SEIZURES Active 06/26/2013 [facility] ABD PAIN Diagnosis Active 2012-062013-04-19 M emoria 0- 21:51:00 l ABD PAIN 19:00: Jake n 00 Active 04/14/2013 [place] GASTROPERI Diagnosis Active 2012-09-13 Memoria SIS 2-12 15:17:00 l 00:00: [place] GASTROPERI 00 SIS Active 08/02/2012 [facility] ABDOMINAL Diagnosis Active 2012-03-14 Memoria PAIN 03-14 16:56:00 l 14:00: [place] ABDOMINAL 00 PAIN Active 03/14/2012 [facility] NAUSEA, Diagnosis Active 2012-03-14 Me moria VOMITING 03-14 13:25:00 l NAUSEA, 08:00: [place] VOMITING 00 Active 03/14/2012 [facility] N/V Diagnosis Active 2011-12-08 Mem oria INABILITY 11-27 11:14:00 l TO N/V 00:00: Vin TOLERATE INABILITY 00 PO TO TOLERATE PO Active 2 [facility] VOMITTING Diagnosis Active 2011-11-28 Memoria 11-27 16:28:00 l 00:00: [place] VOMITTING 00 Active 11/28/2011 [facility] VOMITTING, Diagnosis Active 2011-09-18 [facility] HIGH BLOOD 09-17 09:45:00 l SUGAR 00:00: [place] VOMITTING, 00 HIGH BLOOD SUGAR Active 09/18/2011 [facility] Methicilli Problem Active 2021-01-31 M emoria n 08-31 22:29:25 l resistant 00:00: [place] Staphyloco Methicilli 00 ccus n aureus resistant (organism) Staphyloco ccus aureus (organism) Active 09/01/2011 Problem 01/31/2021 09/01/11 - Elbow woundProbl em added by Discern Expert. [facility] MRSA Problem Active 2012-03-16 Memor ia - 09:11:30 l MRSA 00:00: Vin 00 Active 09/01/2011 Problem 03/16/2012 - Elbow [id number] emily added by Discern Expert. [facility] VOMITING, Diagnosis Active 2011-09-01 Memoria BLOOD 08-30 03:19:00 l SUGAR 00:00: [place] READINGS VOMITING, 00 HIGH BLOOD SUGAR READINGS HIGH Active 08/31/2011 [facility] ELBOW Diagnosis Active 2011-09-10 Mem oria ABSCESS/HY 08-30 16:26:00 l PERGLYCEMI ELBOW 00:00: Nidia nn A ABSCESS/HY 00 PERGLYCEMI A Active 08/31/2011 [facility] Hypokalemi Problem Active 2012-03-16 M emoria a 3-04 09:11:30 l 00:00: [place] Hypokalemi 00 a Active 08/23/2011 Problem 03/16/2012 [facility] DKA Diagnosis Active 2011-08-24 Mem oria 11:27:00 l DKA 00:00: [place] 00 Active 08/19/2011 [facility] VOMITING Diagnosis Active 2011-08-19 M emoria 16:21:00 l VOMITING 00:00: Jake n 00 Active 08/19/2011 [facility] Final: Problem 2016-08-02 Memor ia Acute 02:46:22 l respirator Final: Herm naeem y failure, Acute unspecifie respirator d whether y failure, with unspecifie hypoxia or d whether hypercapni with a hypoxia or hypercapni a 08/02/2016 [facility] Hypoglycem Problem Inactiv 2012-03-16 Memoria ia e 09:11:30 l Vin Hypoglycem ia Inactive Problem 03/16/2012 [facility] Hypoglycem Problem Inactiv 2013-04-22 Memoria ia e 04:46:33 l (disorder) Jake n Hypoglycem ia (disorder) Inactive Problem 04/22/2013 [facility] Gastropare Problem Resolve 2021-01-31 Memoria sis d 22:29:25 l (disorder) Jake gonzalez Gastropare sis (disorder) Resolved Problem 01/31/2021 [facility] Hypertensi Problem Resolve 2021-01-31 Memoria ve d 22:29:25 l disorder, Vin systemic Hypertensi arterial ve (disorder) disorder, systemic arterial (disorder) Resolved Problem 01/31/2021 [facility] Psychiatri Problem Resolve 2021-01-31 Memoria c d 22:29:25 l behavioral Jake n disability Psychiatri (finding) c behavioral disability (finding) Resolved Problem 01/31/2021 [facility] Seizure Problem Resolve 2021-01-31 Mem oria (finding) d 22:29:25 l Seizure Vin (finding) Resolved Problem 01/31/2021 [facility] Hypertensi Problem Active 2012-03-16 M emoria on 09:11:30 l [place] Hypertensi on Active Problem [facility] Hypomagnes Problem Active 2013-04-22 M emoria emia 04:46:33 l [place] Hypomagnes emia Active Problem 04/22/2013 [facility] Nausea and Problem Active 2012-03-16 M emoria vomiting 09:11:30 l Nausea Vin and vomiting Active Problem 03/16/2012 [facility] ENCNTR FOR Diagnosis Active 2020-12-24 Memoria GENERAL 10:39:00 l ADULT ENCNTR [place] MEDICAL FOR EXAM W/ GENERAL ADULT MEDICAL EXAM W/ Active [facility] DMI Diagnosis Active 2011-08-24 Mem oria KETOACD 11:27:00 l UNCONTROLD DMI Jake n KETOACD UNCONTROLD Active [facility] OTHER Diagnosis Active 2011-09-10 Mem oria GENERAL 16:26:00 l SYMPTOMS OTHER [place] GENERAL SYMPTOMS Active [facility] HEART Diagnosis Active 2016-06-24 Mem oria FAILURE, 15:35:00 l UNSPECIFIE HEART Nidia nn D FAILURE, UNSPECIFIE D Active [facility] ACUTE Diagnosis Active 2016-09-09 Mem oria RESPIRATOR 09:11:00 l Y FAILURE, ACUTE Nidia nn UNSP W RESPIRATOR HYPOXI Y FAILURE, UNSP W HYPOXI Active [facility] Nausea and Problem Resolve 2021-01-31 2021-01-31 Memoria vomiting d 6-10 22:29:25 22:29:25 l (disorder) Nausea 00:00: Herm naeem and 00 vomiting (disorder) Resolved 11/29/2011 Problem 01/31/2021 [facility] Hypokalemi Problem Resolve 2021-01-31 2021-01-31 Memoria a d 3-04 22:29:25 22:29:25 l (disorder) 00:00: Jake n Hypokalemi 00 a (disorder) Resolved 08/23/2011 Problem 01/31/2021 [facility] Disorder Problem Resolve 2021-01-31 2021-01-31 Memoria of d 3-04 22:29:25 22:29:25 l magnesium Disorder 00:00: Her braden metabolism of 00 (disorder) magnesium metabolism (disorder) Resolved 08/23/2011 Problem 01/31/2021 [facility] Hyperglyce Problem Resolve 2021-01-31 2021-01-31 Memoria maryam d 3 22:29:25 22:29:25 l (disorder) 00:00: [place] n Hyperglyce 00 maryam (disorder) Resolved 08/20/2011 Problem 01/31/2021 [facility] Ketoacidos Problem Resolve 2021-01-31 2021-01-31 Memoria is in d 22:29:25 22:29:25 l diabetes 00:00: Vin mellitus Ketoacidos 00 (disorder) is in diabetes mellitus (disorder) Resolved 08/19/2011 Problem 01/31/2021 [facility] DKA Problem Resolve 2013-04-22 2013-04-22 Memoria (diabetic [...] Discharge 00 Diagnosis: Gastropare sis 06/26/2014 06/28/2014 [facility] Hyperglyce Problem Inactiv 2012-03-16 2012-03-16 Memoria maryam e 3- 09:11:30 09:11:30 l 00:00: [place] Hyperglyce 00 maryam Inactive 08/20/2011 Problem 03/16/2012 [facility] Allergies, Adverse Reactions, Alerts Allergy Allergy Status [...] Reports transient liver disease with nitrofura ntoin KETOROLA DRUG Active High Swelling Univer s C INGREDI 6-25 ity of TROMETHA 00:00: [place] MINE 00 Medical Branch Ketorola Allergy Active Swelling throatthr [facility] c to 625 oatthroat Health Trometha substanc 00:00: mine e 00 Ket[place] Propensi Active Swelling THROAT Meth frantz c ty to 12-13 st Trometha adverse 00:00: Hospita mine reaction 00 l s to drug Fluphena Allergy Active Other [place] zine to 10-17 reaction( Health substanc 00:00: s): ARM e 00 NUMBNESS Phenylep Allergy Active Other [place] hrine to 10-17 reaction( Health substanc 00:00: s): Hives e 00 Fluphena Propensi Active Other (See Other Me [...] Active Other-Cmnt 2015-06 Univ ers [place] INGREDI 011 ity of 00:00: [place] 00 Medical Branch [...] essnumbne ssnumbnes s PROLEX DRUG Active Other-Cmnt Univ s 12-30 ity of 00:00: [address] Guaifene Propensi Active Other (See Other Me [...] reaction 00 l s to drug Penicill Propensi Active Shortness Of 2010-06 Airway Methodi ins ty to Breath 2-[address] adverse 00:00: her Hospita reaction 00 reaction( l s to s): drug HivesAirw ay closure Penicill Allergy Active Shortness of 2010-06 Other [...] penicill Active Memori a ins ins l [place] codeine codeine Active Memoria l Vin morphine morphine Active Memori a l [place] lisinopr lisinopr Active Memori a il il l Vin Adhesive Adhesive Active Memori a Tape Tape l Vin Ambien Ambien Active Memoria l [place] Prolex Prolex Active Memoria DM DM l [place] penicill Drug Active [facility] lisinopr Drug Active [facility] Ambien Drug Active [facility] Prolixin Drug Active [facility] penicill Drug Active [facility] lisinopr Drug Active [facility] Ambien Drug Active [facility] Prolixin Drug Active [facility] Tape Other Active [facility] penicill Drug Active [facility] lisinopr Drug Active [facility] Ambien Drug Active [facility] Prolixin Drug Active [facility] codeine Drug Active [facility] penicill Drug Active [facility] lisinopr Drug Active [facility] Ambien Drug Active [facility] Prolixin Drug Active [facility] codeine Drug Active [facility] penicill Drug Active [facility] lisinopr Drug Active [facility] Ambien Drug Active [facility] Prolixin Drug Active [facility] penicill Drug Active [facility] lisinopr Drug Active [facility] Ambien Drug Active [facility] Prolixin Drug Active [facility] penicill Drug Active [facility] lisinopr Drug Active [facility] Ambien Drug Active [facility] Prolixin Drug Active [facility] Social History Social Habit Start Date Stop Date Quantity Comments Source History of tobacco Cigarette Smoker [facility] Exposure to Yes [facility] SARS-CoV-2 (event) Hospit al Alcohol intake 2021-06-18 2021-06-18 Ex-drinker [facility] 00:00:00 00:00:00 (finding) Hospital Cigarettes smoked 2021-05-14 2021-05-14 [facility] current (pack per 00:00:00 00:00:00 Hospita l day) - Reported Cigarette 2021-05-14 2021-05-14 [facility] pack-years 00:00:00 00:00:00 Hospital Tobacco use and 2021-05-14 2021-05-14 Smokeless tobacco [facility] exposure 00:00:00 00:00:00 non-user Hospital Social History 2020-12-24 2020-12-24 [facility] fatou 15:49:37 15:49:37 Tobacco Comment 2017-11-12 2017-11-12 5 cigarettes per [facility]ist 00:00:00 00:00:00 day Hospital Sex Ass[birth year] At [birth year] [facility] 00:00[facility]00 00:[facility]:00 Hospital Smoking Status Start Date Stop Date Source Smokes tobacco daily 2021-05-14 00:00:00 [place] [facility] Former smoker 2020-06-27 00:00:00 2020-06-27 00:00:00 [facility] Medications Ordered Filled Start Stop Current Ordering Indication Dosage Frequency Signature Comments Components Source Medication Medication Date Date Medication? Clinician (SIG) Name Name glipiZIDE Yes 5mg Take 5 mg Met hodi (GLUCOTROL) 1-[address] 5 MG tablet 13:02: daily. Hosp jo-ann 39 l calcium Yes 667mg Q.[id number] Take 667 Methodi acetate 1-[id number] (PHOSLO) 13:02: 3D mouth [...] 39 nightly. l calcium 2021-0 Yes 1334mg Q.[id number] Take 1,334 Methodi acetate,domingo 1-18 [id number] mg by s t sphat bind, 13:02: 3D mouth 3 Hos whit (Phoslyra) 39 (three) l 667 mg (169 times a mg day. calcium)/5 mL solution cyproheptad Yes 4mg Q.[id number] Take 4 mg Methodi ine -[id number] (PERIACTIN) 13:02: 3D (three) Hos whit 4 mg tablet 39 times a l day as needed for allergies. buPROPion Yes 300mg QD Take 300 Met hodi XL 1-[address] (WELLBUTRIN 13:02: mouth Hospi ta XL) 300 MG 39 daily. l 24 hr tablet ascorbic Yes 500mg Q.[id number] Take 500 Methodi acid, -[id number] vitamin C, 13:02: 3D [...] mg at night vancomycin 2020-06- No 750mg Q.[id number] Infuse 750 Methodi 750 mg in 07-08 [id number] mg into a [address] sodium 00:00: 05:59 3W venous Hospita chloride 00 :00 catheter 3 l 0.9% 250 mL (three) IVPB times a week for 19 days. Administer 3 times weekly in dialysis HYDROcodone 2020-06- No [id number] 1{tbl} Q6H Take 1 Methodi -acetaminop 06-24 [...] 30 per tablet days. HYDROcodone 2020-06 No [id number] 2{tbl} Q8H Take 2 Methodi -acetaminop 07-26 12-13 tablets by s t hen (NORCO) 00:00: 05:59 mouth Hosp jo-ann 5-325 mg 00 :00 every 8 l per tablet (eight) hours as needed for severe pain for up to 7 days .acute pain. Max Daily Amount: 6 tablets predniSONE 2020-06- No [id number] Take M ethodi (DELTASONE) 07-18-05 Prednisone s [...] 0-03 by mouth. ity of tablet 11:08: [place] [address] Medical Branch aspirin 81 2020-06 Yes 81mg Take 1 Unive rs mg chewable 0-03 tablet by ity of tablet 11:08: mouth [place] [address] daily. Medical Branch divalproex 2020-06 Yes 500mg Take 500 Un lori ER 0-01 mg by ity of (DEPAKOTE 23:08: mouth 2 [place] ER) 500 mg 36 (two) Medical 24 hr times Branch tablet daily. gabapentin 2020-06 Yes 100mg Take 100 Un lori 100 mg 0-01 mg by ity of capsule 23:08: mouth 2 [place] [address] (two) Medical times Branch daily. vitamin C 2020-06 Yes 2000mg Take 2,000 Univers with sia 0-01 mg by ity of hips 23:08: mouth 2 [place] (VITAMIN C) 36 (two) Medical 1,000 mg times Branch tablet daily. metoprolol 2020-06 Yes 50mg Take 50 mg U nivers tartrate 50 0-01 by mouth ity of mg tablet 23:08: daily. [address] Branch folic 2020-06 Yes 800mg Take 800 Univers acid/vit B 0-01 mg by ity of complex and 23:08: mouth [place] C 36 daily. Medical (DIALYVITE Branch 800 ORAL) linagliptin 2020-06 Yes Take by Un lori (TRADJENTA) 0-01 mouth. ity of 5 mg tablet 23:08: [address] Branch spironolact 2020-06 Yes 50mg Take 50 mg Univers one 50 mg 0-01 by mouth ity of tablet 23:08: daily. [address] Branch pravastatin 2020-06 Yes 40mg Take [...] by mouth ity of tablet 23:08: daily. [place] [address] Medical Branch calcium 2020-06 Yes 667mg Take 667 Unive rs acetate 667 0-01 mg by ity of mg capsule 23:08: mouth 3 [place] (three) Medical times Branch daily with meals. cetirizine 2020-06 Yes 1{tbl} Take 1 Uni vers HCl/pseudoe 0-01 tablet by ity of phedrine 23:08: mouth [place] (ZYRTEC-D 36 daily. Medical ORAL) Branch furosemide 2020-06 Yes 40mg Take 40 mg U nivers 40 mg 0-01 by mouth 2 ity of tablet 23:08: (two) [place] [address] times Medical daily. Branch divalproex 2020-06 Yes 500mg Take 500 Un lori ER 0-01 mg by ity of (DEPAKOTE 23:08: mouth 2 [place] ER) 500 mg (two) Medical 24 hr times Branch tablet daily. gabapentin 2020-06 Yes 100mg Take 100 Un lori 100 mg 0-01 mg by ity of capsule 23:08: mouth 2 [place] [address] (two) Medical times Branch daily. vitamin C 2020-06 Yes 2000mg Take 2,000 Univers with sia 0-01 mg by ity of hips 23:08: mouth 2 [place] (VITAMIN C) (two) Medical 1,000 mg times Branch tablet daily. metoprolol 2020-06 Yes 50mg Take 50 mg U nivers tartrate 50 0-01 by mouth ity of mg tablet 23:08: daily. [place] [address] Medical Branch folic 2020-06 Yes 800mg Take 800 Univers acid/vit B 0-01 mg by ity of complex and 23:08: mouth [place] C daily. Medical (DIALYVITE Branch 800 ORAL) linagliptin 2020-06 Yes Take by Un lori (TRADJENTA) 0-01 mouth. ity of 5 mg tablet 23:08: [place] [address] Medical Branch spironolact 2020-06 Yes 50mg Take 50 mg Univers one 50 mg 0-01 by mouth ity of tablet 23:08: daily. [place] [address] Medical Branch pravastatin 2020-06 Yes 40mg Take 40 mg Univers 40 mg 0-01 by mouth ity of tablet 23:08: daily. [place] [address] Medical Branch mv-mn/iron/ 2020-06 Yes 1{capsu Take 1 U nivers folic 0-01 le} capsule by ity of acid/herb 23:08: mouth [place] 190 36 daily. Medical (VITAMIN D3 Branch COMPLETE ORAL) SERTraline 2020-06 Yes 50mg Take 50 mg U nivers 50 mg 0-01 by mouth ity of tablet 23:08: daily. [address] Branch calcium 2020-06 Yes 667mg Take [...] janice - (Same as: l 01:36: Mylicon) [place] 00 epoetin Yes 2,000 unit Mendoza janice giovanny-epbx 8 = 1 mL, l 1999 19:37: IV, [place] units/mL 00 Q-M-W-F, preservativ to be e-free [...] tab, PO, l tablet 19:33: BID, 0 [place] 00 Refill(s) buPROPion Yes 75 mg = 1 Mem oria 75 mg oral 8-10 tab, PO, l tablet 19:33: Daily, # [place] 00 14 tab, 0 Refill(s) Norvasc No [...] 22:54: Mag-Ox Vin 00 400) Magnesium oxide 595ya=784w g elemental magnesium Dose=____m g magnesium oxide (___mg elemental magnesium) Coreg No Notes: Memoria 01-23 Give with l 02:00: food. Vin 00 (Same As: Coreg) Buspar No Notes: Memoria 01-22 (Same As: l 22:00: BuSpar) Vin 00 Fentanyl No Notes: Memoria 01-22 (Same as: l 21:06: Sublimaze) Vin 00 Preservat montse free. Norvasc No Notes: Memoria 8- (Same as: l 16:47: Norvasc) [place] 00 Wellbutrin No Notes: Memor ia 01-22 [...] 01-22 2 tab, l 02:00: Route: PO, [place] 00 Drug form: ERTAB, Bedtime, Start date: [...] Same as: l 200 mL 18:26: Cardene [place] (Titrate.) 00 Concentrat IV 40 mg ion: (0.2 mg /1 ml ) Cyproheptad No 4 mg, 1 Mem oria ine 01-21 tab, l 18:00: Route: PO, Vin Drug form: TAB, TID, Dosing Weight 72, kg, Start date: 01/21/21 13:00:00 CDT, Duration: 30 day, Stop date: 02/20/21 9:00:00 CDT Albuterol No Notes: SEE Me moria 01-21 RT l 17:49: DOCUMENTAT [place] ION (Same as: Proventil) albuterol No 180 [...] 0.9% 01-21 Same as: l 17:31: BD [place] Posiflush Sterile propofol 10 No Notes: If M emoria mg/mL 01-21 Diprivan - l (Titrate.) 17:31: change Nidia nn IV 1,000 mg 00 bottle & tubing every 12 hr Per state nursing law propofol can only be given by a nurse if patient is intubated or being intubated (unless the nurse is a CUSTOMER SALES ADVISOR). Same as: Diprivan midazolam No Route: IV, Me moria (ANES) 01-21 Drug form: l 17:18: SOLN, [place] 00 ONCE, Stop date: 01/21/21 12:18:00 CDT fentaNYL No Route: IV, Mem oria (ANES) 01-21 Drug form: l 17:18: INJ, ONCE, [place] Stop date: 01/21/21 12:18:00 CDT niCARdipine No [...] janice 01-21 (Same as: l 13:16: Mylicon, [place] 00 Phazyme, Genasyme) calcium No See Memoria [...] n [XIFAXAN] 00 tab, 2 Refill(s), Pharmacy: [facility], 154.94, cm, 12/24/20 10:43:00 CDT, Height, 71.818, kg, 12/24/20 10:43:00 CDT, Weight {2 (480 ML Yes See Memoria Magnesium 12-24 Instructio l Sulfate 18:12: ns, take Jake n 0.0277 00 as MEQ/ML / directed, potassium give sulfate clenpiq if 0.0374 not MEQ/ML / covered by sodium insurance, sulfate # 1 ea, 0 0.257 Refill(s), MEQ/ML Oral Pharmacy: Solution) } [facility] [Suprep 808, Bowel [...] 0 Memor ia 7-06 Refill(s) l 15:53: [place] 00 Dialyvite 0 Yes 0 Memoria 5000 [...] Take 7.5 UT (Buspar) 6-19 mg by [facility] 7.5 MG 00:00: mouth 2 tablet 00 (two) times a day. buPROPion Yes 300mg Take 300 UT XL 6-19 mg by [facility] (Wellbutrin 00:00: mouth 1 XL) 300 [...] hr each day. tablet ascorbic Yes 500mg Q.[id number] Take 500 UT acid 5-15 [id number] mg by [facility] (Vitamin C) 00:00: 3D mouth 3 500 MG 00 (three) tablet times a day. sucralfate Yes 1{tbl} QD Take 1 UT (Carafate) 5-10 tablet by [facility] th 1 g tablet 00:00: mouth 1 00 (one) time each day. zinc Yes DAILY [facility] sulfate 50 5-10 ity of mg zinc 00:00: [place] (220 mg) 00 Medical capsule Branch ondansetron 0 Yes 4mg Take 4 mg U nivers 4 mg 4-13 by mouth ity of disintegrat 00:00: [place]. [place] tablet 00 [facility] GLIPIZIDE 5 2020-0 Yes [id number] TAKE 1 [facility] mg tablet -06 TABLET [...] by ity o f 00:00: mouth at [place] 00 bedtime. Medical Branch doxazosin 4 Yes 4mg Take 1 Univ ers mg tablet 1-07 tablet by ity o f 00:00: mouth at [place] 00 bedtime. Medical Branch glipiZIDE 5 2019-06- No [id number] 5mg Take 1 Univers mg tablet 07-01 [...] by ity of tablet 00:00: mouth at [place] [address] bedtime. Medical Branch traZODone Yes 150mg Take 150 Uni vers 150 mg 8-13 mg by ity of tablet 00:00: mouth at [place] [address] bedtime. Medical Branch erythromyci 2020- No [id number] .5[in_u Place 0.5 Univers n 5 mg/gram [...] l 59 Center hydrALAZINE 2017-0 Yes 100mg Q.[id number] Take [address] [facility] (APRESOLINE 7-20 [id number] mg by L ukes - ) 100 MG 15:20: 3D mouth 3 Medica l tablet 59 (three) Center times daily. magnesium 2017-0 Yes 400mg QD Take [address] [facility] oxide 7-20 mg by [facility] (MAG-OX) 15:20: mouth Medical 400 mg 59 daily. Center tablet metoclopram 2017-0 Yes 10mg Q.[id number] Take [address] [facility] gadiel HCl 7-20 [id number] by mouth 3 [facility] - (REGLAN) 10 [...] l 59 Center hydrALAZINE 2017-0 Yes 100mg Q.[id number] Take [address] [facility] [address] (APRESOLINE 7-20 [id number] mg by L ukes - ) 100 MG 15:20: 3D mouth 3 Medica l tablet 59 (three) Center times daily. magnesium 2017-0 Yes 400mg QD Take [address] [facility] oxide 7-20 mg by [facility] - (MAG-OX) 15:20: mouth Medical 400 mg 59 daily. Center tablet metoclopram 2017-0 Yes 10mg Q.[id number] Take [address] [facility] gadiel HCl 7-20 [id number] by mouth 3 [facility] - (REGLAN) 10 [...] l 59 Center hydrALAZINE 2017-0 Yes 100mg Q.[id number] Take [address] [facility] [address] (APRESOLINE 7-20 [id number] mg by L u[facility] - ) 100 MG 15:20: 3D mouth 3 Medica l tablet 59 (three) Center times daily. magnesium 2017- Yes 400mg QD Take [address] [facility] [address] oxide 7-20 mg by [facility] - (MAG-OX) 15:20: mouth Medical 400 mg 59 daily. Center tablet metoclopram 2017-0 Yes 10mg Q.[id number] Take [address] [facility] gadiel HCl 7-20 [id number] by mouth 3 [facility] - (REGLAN) 10 [...] tab, PO, l Tablet 15:07: Daily, # [place] 00 30 tab, 0 Refill(s), Pharmacy: [facility] [id number] Bumex No 0.5 mg, Memoria 2-09 Route: PO, l 15:00: Drug form: [place] 00 TAB, Daily, Dosing Weight 92.273, kg, Start date: 07/30/16 9:00:00 SHOW HOST OR HOSTESS, Duration: 30 day, Stop date: 08/28/16 9:00:00 SHOW HOST OR HOSTESS Lasix 2016-0 No Notes: Memoria 2-08 (Same [...] Total Volume: 1,000, Start date: 07/26/16 12:26:00 SHOW HOST OR HOSTESS, Duration: 30 day, Stop date: 08/25/16 12:25:00 SHOW HOST OR HOSTESS Sodium 2016-0 No 500 mL, Memoria Chloride 2-05 500 ml/hr, l 0.154 13:30: Infuse [place] MEQ/ML 00 Over: 1 Injectable hr, Route: Solution IV, 500, Drug form: INJ, ONCE, Priority: STAT, Dosing Weight 92.273 kg, Start date: 07/26/16 7:30:00 SHOW HOST OR HOSTESS, Duration: 1 doses or times, Stop date: 07/26/16 7:30:00 SHOW HOST OR HOSTESS Insulin 2016- No 60 Memoria regular 2-04 [...] Weight 92.273, kg, Start date: 07/24/16 9:00:00 SHOW HOST OR HOSTESS, Duration: 30 day, Stop date: 08/22/16 9:00:00 SHOW HOST OR HOSTESS 24 HR No Notes: Memoria Divalproex 2-03 (Same as: l Sodium 500 15:00: Depakote Her braden MG Extended 00 ER) Release Tablet [Depakote] gabapentin No Notes: Memor ia 300 MG Oral 2-03 (Same as: l Capsule 15:00: Neurontin) Herm naeem Aspirin 81 No Notes: Memor ia MG Chewable 2-03 Take with l Tablet 15:00: food. [place] 00 Lasix No Notes: Memoria 2-03 (Same [...] form: ERTAB, Daily, Start date: 07/24/16 9:00:00 SHOW HOST OR HOSTESS, Duration: 30 day, Stop date: 08/22/16 9:00:00 SHOW HOST OR HOSTESS Insulin No Notes: Memoria Glargine 2-03 Same [...] Notes: Memoria 2-03 (Same l 14:50: as:MORPhin [place] 00 e Sulfate) Insulin, No Notes: Memoria Aspart, 2-03 Roll in l Human 13:30: palms of [place] 00 hands gently; Do not shake vigorously . (Same as: NovoLOG) "single patient use only" WASTE: F/P - Black; E - Municipal Trash Bin Stable for 28 days at room temperatur e. Expires in days from ____Date Dilaudid No Notes: Memoria 2-03 Same as l 11:28: Dilaudid [place] 00 Insulin, No Notes: Memoria Aspart, 2-03 Roll in l Human 08:40: palms of [place] 00 hands gently; Do not shake vigorously [...] Blood Glucose Results, Start date: 07/24/16 2:40:00 SHOW HOST OR HOSTESS, Duration: 30 day, Stop date: 08/23/16 2:39:00 SHOW HOST OR HOSTESS Dextrose No 25 gm, 50 Mendoza janice 50% Syringe 2-03 mL, Route: l 08:40: IVP, Drug [place] 00 Form: INJ, Dosing Weight 92.273, kg, PRN, PRN Blood Glucose Results, Start date: 07/24/16 2:40:00 SHOW HOST OR HOSTESS, Duration: 30 day, Stop date: 08/23/16 2:39:00 SHOW HOST OR HOSTESS Docusate No Notes: Memoria 2-03 (Same as: l 07:20: Colace) [place] (Do Not Crush) Ondansetron No Notes: Mendoza [...] l / 04:09: Duoneb) Vin Ipratropium 00 [place] 0.167 MG/ML Inhalant Solution [DuoNeb] Furosemide 2015-06 Yes 80 mg = 2 Me moria 40 MG Oral 2-26 tab, PO, l Tablet 16:34: BID, # 120 Nidia nn 00 tab, 0 Refill(s) atorvastati 2015-06 Yes 40 mg = 1 M emoria n 40 mg 2-26 tab, PO, l oral tablet 16:34: Bedtime, # [place] 00 30 tab, 0 Refill(s) Insulin 2015-06 [...] tab, PO, l tablet 16:34: Daily, # [place] 00 30 tab, 0 Refill(s) Lasix 2015-06 No Notes: Memoria 2-26 (Same as: l 15:00: Lasix) [place] 00 May cause GI upset. Give with food or milk. Magnesium 2015-06 No Notes: Memori a Oxide 2-24 (Same as: l 13:36: Mag-Ox [place] 00 400) Magnesium oxide 264jq=564a g elemental magnesium Dose=____m g magnesium oxide (___mg elemental magnesium) Magnesium 2015-06 No Notes: Memori a Oxide 2-24 (Same as: l 09:47: Mag-Ox Vni 00 400) Magnesium oxide 397gv=074u g elemental magnesium Dose=____m g magnesium oxide [...] Memoria 2-24 (Same as: l 00:00: Norvasc) [place] 00 Insulin 2015-06 No Notes: Memoria Glargine [...] tab, PO, l tablet 15:35: Daily, 0 [place] 00 Refill(s) Sertraline 2015-06 Yes 200 mg [...] Weight 86.364, kg, Start date: 06/11/16 9:00:00 SHOW HOST OR HOSTESS, Duration: 30 day, Stop date: 07/10/16 9:00:00 SHOW HOST OR HOSTESS Insulin 2015-06 No Notes: Memoria Glargine 2-22 Same as: l 100 UNT/ML 15:00: Lantus) Do H ermann Injectable 00 not hold Solution insulin [Lantus] without contacting prescriber WASTE: F/P - Black; E - Municipal Trash Bin Zoloft 2015-06 No Notes: Memoria 2-22 (Same as: l 15:00: Zoloft) [place] 00 Insulin, 2015-06 No Notes: Memoria Aspart, 2-22 Roll in l Human 12:55: palms of [place] 00 hands gently; Do not shake vigorously [...] l / 03:00: Duoneb) Vin Ipratropium 00 [place] 0.167 MG/ML Inhalant Solution [DuoNeb] gabapentin 2015-06 No 300 mg, Mendoza janice 300 MG Oral 08-12 Route: PO, l Capsule 03:00: Drug form: Herm naeem 00 CAP, Q12H, Dosing Weight 86.364, kg, (CrCl 30 - 59 ml/min), Start date: 06/10/16 21:00:00 SHOW HOST OR HOSTESS, Duration: 30 day, Stop date: 07/10/16 9:00:00 SHOW HOST OR HOSTESS divalproex 2015-06 No Notes: Memor ia sodium [...] Syringe 2-22 25 mL, l 00:50: Route: [place] 00 IVP, Drug Form: INJ, Dosing Weight 86.364, kg, PRN, PRN Blood Glucose Results, Start date: 06/10/16 18:50:00 SHOW HOST OR HOSTESS, Duration: 30 day, Stop date: 07/10/16 18:49:00 SHOW HOST OR HOSTESS Glucagon 2015-06 No 1 mg, Memoria 2-22 Route: IM, l 00:50: Drug form: PDR/INJ, PRN, Dosing Weight 86.364, kg, PRN Blood Glucose Results, Start date: 06/10/16 18:50:00 SHOW HOST OR HOSTESS, Duration: 30 day, Stop date: 07/10/16 18:49:00 SHOW HOST OR HOSTESS Hydralazine 2015-06 No Notes: Mendoza janice 2-22 [...] Weight 86.364, kg, Start date: 06/10/16 18:06:00 SHOW HOST OR HOSTESS, Stop date: 06/10/16 18:06:00 SHOW HOST OR HOSTESS hydrOXYzine 2015-06 No Notes: Mendoza janice pamoate 2-21 (Same as: l 23:00: Vistaril) Furosemide 2015-06 No 60 mg, Memor ia 2-21 Route: l 22:32: IVP, Drug form: INJ, ONCE, Dosing Weight 86.364, kg, Start date: 06/10/16 16:32:00 SHOW HOST OR HOSTESS, Stop date: 06/10/16 16:32:00 SHOW HOST OR HOSTESS Lasix 2015-06 No Notes: Memoria 08-11 (Same as: l 17:22: Lasix) MEDICATION WASTE Product Size: 40 mg Product Wasted: _0__ mg Albuterol 2015-06 No Notes: Memori a 0.833 MG/ML 08-11 (Same as: l / 17:22: Duoneb) Ipratropium 00 [place] 0.167 MG/ML Inhalant Solution [DuoNeb] Promethazin Yes 25 mg = 1 M emoria e -06 supp, OR, l Hydrochlori 14:45: Q6H, Jake n de [...] 0 Memori a -06 Refill(s) l 11:18: [place] 00 Ondansetron Yes 0 Memori a 1-06 Refill(s) l 11:17: [place] Benztropine 2015-0 Yes 0 Memori a 1-06 [...] Marx Rate: 500 l 0.9% 23:45: ml/hr, [place] (Bolus) IV 00 Infuse 500 mL over: [...] insulin No Blake 10 unit, Mem oria isophane-AWNING MAKER 6-11 Deangelo 0.1 mL, l H 02:00: [...] 6-10 Omidvar Route: l 21:33: IVP, ONCE, [place] 00 Start date: 11/29/11 16:33:00, Stop date: [...] 2011-0 No Blake 14 unit, Mem oria isophane-AWNING MAKER 6-10 Deangelo 0.14 mL, l H 14:00: Brisa Route: [place] 00 SUB-Q, Drug form: INJ, Daily, Start date: 11/29/11 9:00:00, Duration: 30 day, Stop date: 12/28/11 9:00:00 Insulin 2011-0 No Blake 10 unit, Mem oria regular 6-10 Deangelo 0.1 mL, l 14:00: Brisa Route: [place] 00 SUB-Q, Drug form: SOLN, Daily, Start [...] 1,000 mL, Mem oria saline 0.9% 6-10 Deangeol Rate: 200 l IV 1,000 mL 06:29: Brisa ml/hr, [place] Infuse over: 5 hr, Route: IV, Dosing [...] mL, Route: l 04:01: Brown IVP, Drug [place] 00 form: INJ, ONCE, Priority: STAT, Start [...] 1,000 mL 11-27 Rate: l 20:36: 1,000 [place] 00 ml/hr, Infuse over: 1 hr, Route: IV, Dosing Weight 57.273 kg, Total Volume: 1,000, Start date: 11/28/11 15:36:00, Duration: 30 day, Stop date: 12/28/11 15:35:00 Ativan No Arif Domenico 2 mg, 1 Mem oria 6-09 mL, Route: l 20:35: IVP, Drug [place] 00 form: INJ, ONCE, Priority: STAT, Start date: 11/28/11 15:35:00, Stop date: 11/28/11 15:35:00 Novolin R Yes Hughes-Jason 8 unit, M emoria 100 3-30 [place]ubieber SUB-Q, l units/mL 17:47: Eunice Q12H, 2 He rmann injectable 42 Pu vial, solution Substituti on Allowed, SOLN Novolin N Yes Hughes-Jason 10 unit, Memoria 100 3-30 [place]ie[place] SUB-Q, l units/mL 17:46: Eunice Bedtime, H ermann subcutaneou 27 Pu 10 ml, s injection Substituti on Allowed, SUSP Novolin N Yes Hughes-Jason 14 unit, Memoria 100 3-30 [place] SUB-Q, l units/mL 17:44: Eunice QAM, 1 Her braden subcutaneou 37 Pu vial, s injection Substituti on Allowed, SUSP magnesium No Hughes-Jason 400 mg, 1 Memoria oxide 3-30 Nubieber tab, l 14:55: Dawson Route: PO, Her braden 00 Pu Drug form: TAB, ONCE, Priority: STAT, Start date: 09/18/11 9:55:00, Stop date: 09/18/11 9:55:00 Insulin No Hughes-Jason 8 unit, Mem oria regular 3-30 Nubieber 0.08 mL, l 14:22: Dawson Route: Vin 00 Pu SUB-Q, Drug form: SOLN, ONCE, Priority: STAT, Start date: 09/18/11 9:22:00, Stop date: 09/18/11 9:22:00 Lactated 2012-0 No Hughes-Jason 1,000 mL, Memoria Ringers 3-30 Nubieber Rate: l (Bolus) IV 14:16: Dawson 1,000 He rmann 1,000 mL 00 Pu ml/hr, Infuse over: 1 hr, Route: IV, Total Volume: 1,000, Bolus Dose, Priority: STAT, Start date: 09/18/11 9:16:00, Duration: 1 doses or times, Stop date: 09/18/11 10:15:00 Sodium 2011-0 No Hughes-Jason 1,000 mL, Me moria Chloride 3-30 Nubieber Rate: l 0.9% 14:06: Dawson 1,000 [place] (Bolus) IV 00 Pu ml/hr, 1000 mL Infuse over: 1 hr, Route: IV, kg, Total Volume: 1,000, Bolus Dose, Priority: STAT, Start date: 09/18/11 9:06:00, Duration: 1 doses or times, Stop date: 09/18/11 10:05:00 sulfamethox 2011-0 Yes Substituti Memoria azole 3-30 on Allowed l 14:04: Vin 58 Sodium 2011-0 No Hughes-Jason 1,000 mL, Me moria Chloride 3-30 Nubieber Rate: l 0.9% 13:56: Dawson 1,000 Vin (Bolus) IV 00 Pu ml/hr, 1000 mL Infuse over: 1 hr, Route: IV, kg, Total Volume: 1,000, Bolus Dose, Priority: STAT, Start date: 09/18/11 8:56:00, Duration: 1 doses or times, Stop date: 09/18/11 9:55:00 clindamycin 2011-0 No Eber L 300 mg, 2 Memoria 3-21 Anabelle cap, l 21:00: Route: PO, [place] 00 Drug form: CAP, Q8H, Start date: 09/09/11 16:00:00, Duration: 30 day, Stop date: 10/09/11 8:00:00 Colace 100 2011-0 Yes Luna 100 mg, 1 Memoria mg oral 3-21 Amelia cap, PO, l capsule 18:47: [place] BID, 60 Her braden 19 cap, Substituti on Allowed, CAP clindamycin 2011- Yes Luna 300 mg, 2 Memoria 150 mg oral 3-21 Amelia cap, PO, l capsule 18:46: Zeeshan Q8H, 30 Her braden 55 cap, Substituti on Allowed, CAP [place] Yes Luna 1 tab, PO, Memoria 10/325 oral -21 Amelia Q4H, PRN, l tablet 18:46: [place] 30 tab, Herm naeem 36 Pain, Substituti on Allowed, Maintenanc e, TAB [place] No Hollie Donavan 1 tab, Mendoza janice [...] 3-19 Omidvar tab, l 15:30: Route: PO, [place] 00 Drug form: TAB, Daily, Start date: 09/07/11 10:30:00, Duration: 30 day, Stop date: 10/07/11 9:00:00 flumazenil 2011-0 No Gayle 0.2 mg, 2 Memoria 3-19 Josefina mL, Route: l 14:19: Trego IVP, Drug Jake n 00 form: INJ, PRN, PRN Benzodiaze pine Reversal, Initial dose, Start date: 09/07/11 9:19:00, Duration: 1 day, Stop date: 09/08/11 9:18:00 naloxone 2011-0 No Gayle 0.04 mg, Me moria 3-19 Josefina 0.1 mL, l 14:19: Trego Route: [place] 00 IVP, Drug form: INJ, Q2MIN, PRN [...] Duration: 30 day, Stop date: 10/04/11 18:10:00 [place] 2011-0 No Mahammad 1 tab, Memori a [...] 3-16 Kavon 0.1 mL, l 14:50: Route: [place] 00 IVP, Drug form: INJ, Q2MIN, PRN Narcotic Reversal, Start date: 09/04/11 9:50:00, Duration: 30 day, Stop date: 10/04/11 9:49:00 [place] 2011-0 No [place] 1 tab, Memoria 10/325 [...] 3-16 Kavon 0.25 mL, l 13:37: Route: [place] 00 IVP, Drug form: INJ, Q5Min, PRN [...] 3-15 Omidvar tab, l 13:39: Route: PO, [place] Drug form: ERTAB, ONCE, Start date: 09/03/11 8:39:00, Stop date: 09/03/11 8:39:00 [place] 5/325 2011-0 No Rosalino 1 tab, M emoria oral tablet 3-15 Kavon Route: PO, l 05:00: Drug Form: [place] 00 TAB, Q4H, Start date: 09/03/11 0:00:00, [...] 3-14 Anabelle cap, l 17:00: Route: PO, [place] 00 Drug form: ERCAP, Daily, Give qAM after today's dose., Start date: 09/02/11 12:00:00, Duration: 30 day, Stop date: 10/02/11 9:00:00 [place] 5/325 2011-0 No Rosalino 1 tab, M [...] Route: l 14:00: IVPB, Drug form: INJ, [id number], Start date: 09/02/11 9:00:00, Duration: 30 day, Stop date: 10/01/11 21:00:00 clindamycin 2011-0 No Eber L 600 mg, 4 Memoria (SCIP) 3-14 Anabelle mL, Route: l 10:00: IVPB, [place] 00 [id number], Start date: 09/02/11 5:00:00, Duration: 3 doses or times, Stop date: 09/02/11 21:00:00 clindamycin 2011-0 No Yury 600 mg, 4 Memoria (SCIP) 3-14 Silverio mL, Route: l 04:00: [place] IVPB, Vin 00 [id number], Start date: 09/01/11 23:00:00, Duration: 3 doses or times, Stop date: 09/02/11 15:00:00 insulin No [place] 15 unit, Mendoza janice isophane-AWNING MAKER 3-14 Omidvar 0.15 mL, l H 02:00: Route: Vin 00 SUB-Q, Drug form: INJ, Q12H, Start date: 09/01/11 21:00:00, Stop date: 10/01/11 9:00:00 labetalol No Mariaelena-Corea 5 mg, Me moria 3-14 Barbra Route: l 01:07: Feliciano IVP, [place] 00 Q5Min, PRN Elevated BP, Start date: [...] Barbra Route: l 01:07: Feliciano IVP, PRN, [place] 00 PRN Benzodiaze pine Reversal, Initial dose, Start date: 09/01/11 20:07:00, Duration: 30 day, Stop date: 10/01/11 20:06:00 ondansetron 2011-0 No Mariaelena-Corea 4 mg, Memoria 3-14 Barbra Route: l 01:07: Feliciano IVP, ONCE, [place] PRN Nausea & Vomiting, Start date: 09/01/11 20:07:00 vancomycin 2011-0 No Mele 1 gm, Mem oria 3-14 Gauvain Route: l 01:00: IVPB, Drug form: INJ, [id number], Start date: 09/01/11 20:00:00, Duration: 30 day, [...] Route: l 00:00: IVPB, Drug form: INJ, [id number], Start date: 09/01/11 19:00:00, Duration: 30 day, [...] Movva mL, Route: l 23:23: IVP, Drug [place] Form: INJ, PRN, PRN Blood Glucose Results, Start date: 09/01/11 18:23:00, Duration: 30 day, Stop date: 10/01/11 18:22:00 morphine 2011-0 No Daja Shannan 2 mg, 1 M emoria Sulfate 3-13 Beni mL, Route: l 21:14: IVP, Drug [place] form: INJ, Q4H, PRN Severe Pain, Start date: 09/01/11 16:14:00, Stop date: 10/01/11 16:13:00 Lactated 2011-0 No Cesar 1,000 mL, Me moria Ringers IV 3-13 Manuel Hobgood Rate: 100 l 1,000 mL 19:03: ml/hr, [...] Madden Rate: l 0.9% 14:53: Gurinder 1,000 [place] (Bolus) IV 00 ml/hr, 1,000 mL Infuse [...] 3-13 Cruzito Rate: l 0.9% 10:41: 1,000 [place] (Bolus) IV 00 ml/hr, 1000 mL Infuse over: 1 hr, Route: IV, Dosing Weight 68.182 kg, Total Volume: 1,000, Bolus Dose, Priority: STAT, Start date: 09/01/11 5:41:00, Duration: 1 doses or times, Stop date: 09/01/11 6:40:00 ondansetron 2011-0 No Bee L 4 mg, Memoria 3-13 [place] Route: l 09:06: IVP, Drug [place] 00 form: INJ, ONCE, Priority: STAT, Start date: 09/01/11 4:06:00, Stop date: 09/01/11 4:06:00 morphine 2011-0 No Bee L 4 mg, Mem oria Sulfate 3-13 [place] Route: l 09:06: IVP, ONCE, [place] 00 Priority: STAT, Start date: 09/01/11 4:06:00, Stop date: 09/01/11 4:06:00 Sodium 2011-0 No Bee L 1,000 mL, M emoria Chloride - [place] Rate: l 0.9% 08:42: 1,000 [place] (Bolus) IV 00 ml/hr, 1000 mL Infuse over: 1 hr, Route: IV, Dosing Weight 68.182 kg, Total Volume: 1,000, Bolus Dose, Priority: STAT, Start date: 09/01/11 3:42:00, Duration: 1 doses or times, Stop date: 09/01/11 4:41:00 Insulin 2011- No Bee L 8 unit, Me moria regular 08-31 [place] 0.08 mL, l 08:30: Route: [place] 00 IVP, Drug form: SOLN, ONCE, Priority: STAT, Start date: 09/01/11 3:30:00, Stop date: 09/01/11 3:30:00 Sodium 2011-0 No Bee L 1,000 mL, M emoria Chloride 08-31 [place] Rate: l 0.9% 07:29: 1,000 [place] (Bolus) IV 00 ml/hr, 1,000 mL Infuse over: 1 hr, Route: IV, Dosing Weight 68.182 kg, Total Volume: 1,000, Bolus Dose, Priority: STAT, Start date: 09/01/11 2:29:00, Duration: 1 doses or times, Stop date: 09/01/11 3:28:00 potassium 2011-0 No Velásquez Noam 40 mEq, 2 Memoria chloride 3-04 Akmal tab, l 15:00: Route: PO, [place] 00 Drug form: ERTAB, BID, Start date: [...] Akmal SUB-Q, l units/mL 14:42: BID, 3 [place] subcutaneou 04 vial, 3, s injection 3, Substituti on Allowed, SUSP insulin Yes Velásquez Noam 5 Units, Memoria regular 3-04 Akmal SUB-Q, l human 14:40: TID, 30 [place] recombinant 10 vial, 3, 100 3, units/mL Substituti injectable on solution Allowed, before breakfast [facility] potassium No Velásquez [...] Akmal mL, Route: l 12:26: IVPB, Drug [place] 00 form: INJ, ONCE, Total dose = [...] Rodriguez 10 mL, l 16:25: Ahmed Route: [place] 00 IVPB, ONCE, Start date: 08/22/11 10:25:00, [...] mL, Route: l 17:15: Ahmed IVP, Drug [place] 00 form: INJ, Q8H, PRN Nausea, Start date: 08/20/11 11:15:00, Duration: 30 day, Stop date: 09/19/11 11:14:00 insulin 2011-0 No Yury 10 unit, Mem oria isophane-AWNING MAKER 3- [place] Route: l H 16:00: Rivero SUB-Q, Nidia nn 00 ONCE, Start date: 08/20/11 10:00:00, Stop date: 08/20/11 10:00:00 trazodone 2012-0 Yes 200 mg, 2 Mem oria 100 mg oral 3-01 tab, PO, l tablet 15:37: Bedtime, [place] 27 90 tab, Substituti on Allowed, TAB benztropine 2011-0 Yes 1 mg, 1 Mem oria 1 mg oral 3-01 tab, PO, l tablet 15:35: BID, 60 [place] 25 tab, Substituti on Allowed, TAB Geodon 60 2011-0 Yes 120 mg, 2 Mem oria mg oral 3-01 cap, PO, l capsule 15:35: Bedtime, Jake n 12 60 cap, Substituti on Allowed, CAP insulin 2011-0 No Yury 10 unit, Mem oria isophane-[employer]ING [employer]ER 3- Gato Route: l H 15:00: Rivero [...] Yury 20 mEq, Me moria chloride 3- Gaot 100 mL, l 14:00: Rivero Route: Nidia [...] Allowed insulin No 10 unit, Memori a isophane-[employer]ING [employer]ER 3- SUB-Q, l H 09:26: BID, Vin [...] 2011-0 No Yury 18 unit, Mem oria isophane-[employer]ING [employer]ER 3- Gato 0.18 mL, l H 08:58: [...] ondansetron No Hughes-Jason 4 mg, emoria 08-19 [place] Route: l 07:42: Dawson IVP, Drug Herm naeem 00 Pu form: INJ, ONCE, Priority: STAT, Start date: 08/20/11 1:42:00, Stop date: 08/20/11 1:42:00 GI cocktail No Hughes-Jason 30 ml, Memoria 08-19 [place] Route: PO, l 05:12: Eunice Drug Form: Her braden 00 Pu SUSP, ONCE, STAT, Start date: 08/19/11 23:12:00, Stop date: 08/19/11 23:12:00 ondansetron 0 No [facility] [place] [facility]: PO, l 05:10: Dawson Drug form: Her braden 00 Pu TABDIS, ONCE, Priority: STAT, Start date: 08/19/11 23:10:00, Stop date: 08/19/11 23:10:00 Lactated 2011-0 No Hughes-Jason 1,000 mL, Memoria Ringers 3-01 [place] Rate: l (Bolus) IV 05:10: Dawson 1,000 He rmann 1000 mL 00 Pu ml/hr, Infuse over: 1 hr, Route: IV, Total Volume: 1,000, Bolus Dose, Priority: STAT, Start date: 08/19/11 23:10:00, Duration: 1 doses or times, Stop date: 08/20/11 0:09:00 Insulin 2011- No Hughes-Jason 7 unit, Mem oria regular 08-19 [place] 0.07 mL, l 04:15: Dawson Route: [place] 00 Pu SUB-Q, Drug form: SOLN, ONCE, Priority: STAT, Start date: 08/19/11 22:15:00, Stop date: 08/19/11 22:15:00 Geodon 60 2011-0 No Yury 60 mg, 1 M emoria mg oral 2-29 Gato cap, PO, l capsule 23:24: Rivero BID, 180 [place] 43 cap, Substituti on Allowed, CAP trazodone [...] Wong Route: IV, l 21:57: Pooja ONCE, [place] 00 Start date: 08/19/11 15:57:00, Stop date: [...] 2020-02-20 [facility]00 [facility] Influenza Virus 2020-02-20 Completed [facility] 00:00:00 [facility] TDAP (ADACEL) VACCINE 2019-07-25 Completed [facility] vers[facility] of 00:00:00 [facility] Meningococcal B, OMV 2019-07-25 Completed [facility] ersity of 00:00:00 [facility] Meningococcal 2019-07-25 Completed [facility] Polysaccharide 00:00:00 [place] Medi tawnya (groups A, C, Y and Branc h W-135) conjugate vaccine (MCV4P) TDAP (ADACEL) VACCINE 2019-07-25 Completed Uni versity of 00:00:00 [facility] Meningococcal B, OMV 2019-07-25 Completed Univ ersity of 00:00:00 [facility] Meningococcal 2019-07-25 Completed University of Polysaccharide 00:00:00 [place] [facility] (groups A, C, Y and [...] y of Vaccine Quad IM 3+ 00:00:00 [facility] Influenza Virus 2017-06-22 Completed Universit y of Vaccine Quad IM 3+ 00:00:00 [facility] Influenza Virus 2016-04-02 Completed Universit y of Vaccine Quad IM 3+ 00:00:00 [facility] Influenza Virus 2016-04-02 Completed Universit y of Vaccine Quad IM 3+ 00:00:00 [facility] Influenza Virus 2015-10-28 Completed Universit y of Vaccine Quad IM 3+ 00:00:00 [facility] Influenza Virus 2015-10-28 Completed Universit y of Vaccine Quad IM 3+ 00:00:00 [facility] Vital Signs Vital Name Observation Time Observation [...] 2020-06-27 16:33:00 171 mm[Hg] Univer sity of [facility] Diastolic blood 2020-06-27 16:33:00 98 mm[Hg] Unive rsity of [facility] Heart rate 2020-06-27 16:33:00 71 /min Universi [facility] Respiratory rate 2020-06-27 16:29:00 19 /min Univ ersity of [facility] Body height 2020-06-27 16:29:00 [facility] 2020-06-27 16:29:00 77[facility]293 [facility] BMI 2020-06-27 16:29:00 32.20 kg/m2 [facility] Branch Oxygen saturation in 2020-06-27 16:29:00 99 /min University Arterial blood by [facility] Pulse oximetry Branch Height/Length 2021-07-08 11:50:13 154.9 cm Measured Weight Dosing 2021-07-08 11:50:13 85.00 kg Height/Length 2021-07-08 11:47:31 154.9 cm Measured Weight Dosing 2021-07-08 11:47:31 85.00 kg Height/Length 2021-07-08 11:47:20 154.9 cm Measured Weight Dosing 2021-07-08 11:47:20 85.00 kg Systolic blood 2021-07-08 19:43:00 189 mm[Hg] [facility] pressure Diastolic blood 2021-07-08 19:43:00 104 mm[Hg] [facility] pressure Heart rate 2021-07-08 18:56:00 74 /min [facility] Body temperature 2021-07-08 18:56:00 36.39 [facility] Body height 2021-07-08 18:56:00 157.5 cm [facility] Body weight 2021-07-08 18:56:00 72.938 kg [facility] BMI 2021-07-08 18:56:00 29.41 kg/m2 [facility] Oxygen saturation in 2021-07-08 18:56:00 100 /min [facility] Arterial blood by Pulse oximetry Respiratory rate 2021-06-18 16:36:00 11 /min [facility] Systolic (mm Hg) 2021-01-29 20:03:00 [place] rial Vin Diastolic (mm Hg) 2021-01-29 20:03:00 Mem orial Vin Systolic (mm Hg) 2021-01-29 19:40:00 [place]za rial Vin Diastolic (mm Hg) 2021-01-29 19:40:00 Mem orial [place] Systolic (mm Hg) 2021-01-29 18:05:00 [place]za rial Vin Diastolic (mm Hg) 2021-01-29 18:05:00 Mem orial Vin Respitory Rate 2021-01-29 16:55:00 Memori al [place] Temperature Oral (F) 2021-01-29 16:45:00 97.3 F [facility] [place] Respitory Rate 2021-01-29 16:45:00 [facility] [place] Respitory Rate 2021-01-29 16:30:00 [facility] [place] Temperature Oral (F) 2021-01-29 13:10:00 97.6 F [facility] Systolic (mm Hg) 2021-01-27 05:00:00 [place] rial Vin Diastolic (mm Hg) 2021-01-27 05:00:00 Mem o[facility] [place] Systolic (mm Hg) 2021-01-27 04:00:00 [place] rial Vin Diastolic (mm Hg) 2021-01-27 04:00:00 Mem orial Vin Systolic (mm Hg) 2021-01-27 03:00:00 [place]za rial [place] Diastolic (mm Hg) 2021-01-27 03:00:00 Mem orial Vin Respitory Rate 2021-01-26 19:00:00 Memori al Vin Respitory Rate 2021-01-26 18:00:00 Memori al Vin Respitory Rate 2021-01-26 17:00:00 [facility] [place] Temperature Oral (F) 2021-01-22 13:00:00 97.6 F [facility] Height 2021-01-21 18:25:00 149.86 cm [facility] [place] Weight 2021-01-21 18:25:00 [facility] [place] BMI Calculated 2021-01-21 18:25:00 Memori al Vin Height 2021-01-21 17:09:00 157.48 cm [facility] Height 2021-01-21 13:09:00 157.48 cm [facility] [place] Weight 2021-01-21 13:09:00 [facility] BMI Calculated 2021-01-21 13:09:00 [facility] [place] Heart Rate 2021-01-21 12:50:00 [facility] [place] Systolic (mm Hg) 2020-12-24 15:43:00 [facility]za rial Vin Diastolic (mm Hg) 2020-12-24 15:43:00 Mem orial [place] Heart Rate 2020-12-24 15:43:00 [facility] Height 2020-12-24 15:43:00 154.94 cm [facility] Weight 2020-12-24 15:43:00 [facility] BMI Calculated 2020-12-24 15:43:00 [facility] [place] Systolic (mm Hg) 2016-07-30 14:00:00 [facility]za rial Vin Diastolic (mm Hg) 2016-07-30 14:00:00 Mem orial [place] Respitory Rate 2016-07-30 14:00:00 [facility] [place] Heart Rate 2016-07-30 14:00:00 [facility] Temperature Oral (F) 2016-07-30 14:00:00 97.4 F [facility] Systolic (mm Hg) 2016-07-30 10:45:00 [place]za rial Vin Diastolic (mm Hg) 2016-07-30 10:45:00 Mem orial [place] Heart Rate 2016-07-30 10:45:00 [facility] Temperature Oral (F) 2016-07-30 10:45:00 97.2 F [facility] Respitory Rate 2016-07-30 10:45:00 Memori al Vin Heart Rate 2016-07-30 06:35:00 [facility] [place] Temperature Oral (F) 2016-07-30 06:35:00 97.0 F [facility] Respitory Rate 2016-07-30 06:35:00 Memori al Vin Systolic (mm Hg) 2016-07-30 06:35:00 [place]za rial Vin Diastolic (mm Hg) 2016-07-30 06:35:00 Mem orial Vin Weight 2016-07-24 02:13:00 [facility] [place] BMI Calculated 2016-07-24 02:13:00 [facility] [place] Height 2016-07-24 02:13:00 160.02 cm [facility] Respitory Rate 2016-06-15 15:00:00 Memori al Vin Systolic (mm Hg) 2016-06-15 15:00:00 Mendoza rial [place] Diastolic (mm Hg) 2016-06-15 15:00:00 Mem orial Vin Respitory Rate 2016-06-15 14:00:00 [facility] [place] Systolic (mm Hg) 2016-06-15 14:00:00 M[place]za rial [place] Diastolic (mm Hg) 2016-06-15 14:00:00 Mem orial Vin Respitory Rate 2016-06-15 13:29:00 Memori al Vin Systolic (mm Hg) 2016-06-15 13:29:00 [place]za rial [place] Diastolic (mm Hg) 2016-06-15 13:29:00 Mem orial Vin Temperature Oral (F) 2016-06-14 10:56:00 97.1 F [facility] [place] Temperature Oral (F) 2016-06-14 06:55:00 97.1 F [facility] Temperature Oral (F) 2016-06-12 10:00:00 96.8 F [facility] [place] Weight 2016-06-11 04:25:00 [facility] [place] Height 2016-06-11 04:25:00 160.02 cm [facility] [place] BMI Calculated 2016-06-11 04:25:00 Memori al Vin Heart Rate 2016-06-11 02:04:00 [facility] Heart Rate 2016-06-11 00:00:00 [facility] [place] Heart Rate 2016-06-10 20:30:00 [facility] [place] Weight 2016-06-10 16:04:00 [facility] [place] BMI Calculated 2016-06-10 16:04:00 Memori al Vin Height 2016-06-10 16:04:00 160.02 cm [facility] Temperature Oral (F) 2014-06-26 15:12:00 98.0 F [facility] Systolic (mm Hg) 2014-06-26 15:12:00 M[place]za rial [place] Heart Rate 2014-06-26 15:12:00 [facility] [place] Diastolic (mm Hg) 2014-06-26 15:12:00 Mem orial Vin Respitory Rate 2014-06-26 15:12:00 Memori al Vin Systolic (mm Hg) 2014-06-26 13:53:00 [place]za rial Vin Diastolic (mm Hg) 2014-06-26 13:53:00 Mem orial Vin Respitory Rate 2014-06-26 13:53:00 Memori al Vin Temperature Oral (F) 2014-06-26 13:53:00 98.0 F [facility] [place] Temperature Oral (F) 2014-06-26 12:37:00 98.2 F [facility] [place] Respitory Rate 2014-06-26 12:37:00 [facility] [place] Systolic (mm Hg) 2014-06-26 12:37:00 [place]za rial Vin Diastolic (mm Hg) 2014-06-26 12:37:00 Mem orial Vin Heart Rate 2014-06-26 09:21:00 [facility] Heart Rate 2014-06-26 06:08:00 [facility] [place] Height 2014-06-26 05:35:00 154.94 cm [facility] [place] Weight 2014-06-26 05:35:00 [facility] [place] BMI Calculated 2014-06-26 05:35:00 Memori al Vin Respitory Rate 2013-04-15 06:10:00 [facility] [place] Diastolic (mm Hg) 2013-04-15 06:10:00 Mem o[facility] [place] Heart Rate 2013-04-15 06:10:00 [facility] Systolic (mm Hg) 2013-04-15 06:10:00 [place] rial Vin Temperature Oral (F) 2013-04-15 06:10:00 98.7 F [facility] Respitory Rate 2013-04-15 05:37:00 [facility] [place] Diastolic (mm Hg) 2013-04-15 05:37:00 Mem orial Vin Systolic (mm Hg) 2013-04-15 05:37:00 [place]za rial [place] Temperature Oral (F) 2013-04-15 05:37:00 98.2 F [facility] [place] Heart Rate 2013-04-15 05:37:00 [facility] Height 2013-04-15 02:06:00 160.02 cm [facility] Weight 2013-04-15 02:06:00 [facility] [place] Temperature Oral (F) 2013-04-15 02:06:00 98.6 F [facility] Respitory Rate 2013-04-15 02:06:00 [facility] [place] Heart Rate 2013-04-15 02:06:00 [facility] Diastolic (mm Hg) 2013-04-15 02:06:00 Mem [facility] [place] Systolic (mm Hg) 2013-04-15 02:06:00 M[place]za rial [place] Weight 2012-03-14 21:33:00 [facility] Systolic (mm Hg) 2011-12-01 00:33:00 [place] rial Vin Respitory Rate 2011-12-01 00:33:00 [facility] [place] Heart Rate 2011-12-01 00:33:00 [facility] [place] Diastolic (mm Hg) 2011-12-01 00:33:00 Mem orial Vin Temperature Oral (F) 2011-12-01 00:33:00 99.6 F [facility] Diastolic (mm Hg) 2011-11-30 21:00:00 Mem orial Vin Heart Rate 2011-11-30 21:00:00 [facility] [place] Respitory Rate 2011-11-30 21:00:00 Memori al Vin Systolic (mm Hg) 2011-11-30 21:00:00 [place] rial Vin Temperature Oral (F) 2011-11-30 21:00:00 99.8 F [facility] [place] Respitory Rate 2011-11-30 16:30:00 Memori al Vin Systolic (mm Hg) 2011-11-30 16:30:00 [place]za rial Vin Diastolic (mm Hg) 2011-11-30 16:30:00 Mem orial Vin Heart Rate 2011-11-30 16:30:00 [facility] [place] Temperature Oral (F) 2011-11-30 16:30:00 99.8 F [facility] [place] Weight 2011-11-29 11:40:00 [facility] [place] Height 2011-11-29 11:40:00 157.48 cm [facility] [place] Weight 2011-11-28 17:16:00 [facility] Weight 2011-09-18 13:30:00 [facility] Height 2011-09-18 13:30:00 154.94 cm [facility] Heart Rate 2011-09-09 13:31:00 [facility] [place] Systolic (mm Hg) 2011-09-09 13:02:00 [place]za rial [place] Diastolic (mm Hg) 2011-09-09 13:02:00 Mem orial Vin Respitory Rate 2011-09-09 13:02:00 [facility] [place] Temperature Oral (F) 2011-09-09 13:02:00 97.5 F [facility] Diastolic (mm Hg) 2011-09-09 08:00:00 Mem orial Vin Heart Rate 2011-09-09 08:00:00 [facility] Temperature Oral (F) 2011-09-09 08:00:00 98.6 F [facility] [place] Respitory Rate 2011-09-09 08:00:00 Memori al Vin Systolic (mm Hg) 2011-09-09 08:00:00 [place] rial [place] Respitory Rate 2011-09-09 04:55:00 [facility] [place] Diastolic (mm Hg) 2011-09-09 04:55:00 Mem [facility] [place] Systolic (mm Hg) 2011-09-09 04:55:00 [place] rial Vin Heart Rate 2011-09-09 04:55:00 [facility] Temperature Oral (F) 2011-09-09 00:55:00 98.7 F [facility] [place] Weight 2011-09-01 19:59:00 [facility] Height 2011-09-01 19:59:00 154.94 cm [facility] [place] Height 2011-09-01 07:01:00 154.94 cm [facility] Weight 2011-09-01 07:01:00 [facility] Respitory Rate 2011-08-23 18:00:00 [facility] [place] Heart Rate 2011-08-23 18:00:00 [facility] [place] Systolic (mm Hg) 2011-08-23 18:00:00 [place] rial Vin Diastolic (mm Hg) 2011-08-23 18:00:00 Mem o[facility] [place] Temperature Oral (F) 2011-08-23 18:00:00 97.7 F [facility] Heart Rate 2011-08-23 14:24:00 [facility] Temperature Oral (F) 2011-08-23 14:24:00 98.2 F [facility] [place] Diastolic (mm Hg) 2011-08-23 14:24:00 Mem o[facility] [place] Systolic (mm Hg) 2011-08-23 14:24:00 Mnedoza rial Vin Respitory Rate 2011-08-23 14:24:00 Memori al Vin Systolic (mm Hg) 2011-08-23 11:15:00 [place]za rial [place] Diastolic (mm Hg) 2011-08-23 11:15:00 Mem orial Vin Temperature Oral (F) 2011-08-23 11:00:00 98.3 F [facility] Heart Rate 2011-08-23 11:00:00 [facility] [place] Respitory Rate 2011-08-22 22:00:00 [facility] [place] Height 2011-08-20 09:12:00 154.94 cm [facility] [place] Weight 2011-08-20 09:12:00 [facility] Height 2011-08-19 20:28:00 154.94 cm [facility] Weight 2011-08-19 20:28:00 [facility] Procedures Procedure Date / Time Performing Clinician Source Performed POC GLUCOSE 2021-06-18 17:00:00 Aurelio Schumacher spital HEPATITIS B SURFACE 2021-06-18 14:07:00 Kenneth [facility] ANTIGEN VANCOMYCIN LEVEL, RANDOM 2021-06-18 13:44:00 [facility] HC COMPLETE BLD COUNT 2021-06-18 13:44:00 Endy [facility] W/AUTO DIFF BASIC METABOLIC PANEL 2021-06-18 11:27:00 [facility] ESTIMATED GFR 2021-06-18 11:27:00 Aurelio Schumacher Ho spital POC GLUCOSE 2021-06-18 08:07:00 [facility]lio [facility] HEMODIALYSIS 2021-06-18 06:16:53 Bill Cooper spital POC GLUCOSE 2021-06-18 01:26:00 Aurelio Schumacher [facility] POC GLUCOSE 2021-06-17 21:58:00 Aurelio Schumacher [facility] HEMODIALYSIS 2021-06-17 18:25:45 Bill Cooper spital POC GLUCOSE 2021-06-17 17:36:00 [facility]lio [facility]acher [facility] POC GLUCOSE 2021-06-17 13:51:00 Aurelio Schumacher Ho spital BASIC METABOLIC PANEL 2021-06-17 11:16:00 [facility] HC COMPLETE BLD COUNT 2021-06-17 11:16:00 [facility] W/AUTO DIFF ESTIMATED GFR 2021-06-17 11:16:00 [facility] POC GLUCOSE 2021-06-17 02:50:00 [facility] CONSULT TO OSTOMY CARE 2021-06-17 00:31:48 [facility] NURSE HC COMPLETE BLD COUNT 2021-06-16 23:31:00 [facility] W/AUTO DIFF BASIC METABOLIC PANEL 2021-06-16 23:31:00 [facility] ESTIMATED GFR 2021-06-16 23:31:00 [facility] POC GLUCOSE 2021-06-16 23:19:00 [facility] OR [place] < 1 HOUR 2021-06-16 22:49:00 [facility] 2021-06-16 22:36:[address] [facility] FUNGUS CULTURE 2021-06-16 22:36:00 [facility] 2021-06-16 22:36:00 [facility] 2021-06-16 22:36:00 [facility] OR AN ELECTIVE 2021-06-16 21:30:00 Jocelyne Zepeda [facility] SUPRAGLOTTIC AIRWAY AORTOGRAPHY, POSSIBLE 2021-06-16 21:17:00 Mando Diaz [facility] ANGIOPLASTY [facility] POC , URINE 2021-06-16 20:46:00 [facility] POTASSIUM LEVEL 2021-06-16 17:28:00 Isabell Dickerson [facility] Larry Romero POC GLUCOSE 2021-06-16 11:39:00 [facility] BASIC METABOLIC PANEL 2021-06-16 10:08:00 [facility] 2021-06-16 10:08:00 [facility] W/AUTO DIFF PROTHROMBIN TIME WITH INR 2021-06-16 10:08:00 [facility] PARTIAL THROMBOPLASTIN 2021-06-16 10:08:00 [facility] TIME (PTT) TYPE AND SCREEN 2021-06-16 10:08:00 [facility] ESTIMATED GFR 2021-06-16 10:08:00 [facility] POC GLUCOSE 2021-06-16 01:59:00 [facility] POC GLUCOSE 2021-06-15 22:58:00 [facility] COVID-19 QUALITATIVE 2021-06-15 19:29:00 Wander Elizabethmaria luisa [facility] RT-PCR POC GLUCOSE 2021-06-15 17:42:00 [facility] HEMODIALYSIS 2021-06-15 16:17:54 Delfino Akbar [facility] POC GLUCOSE 2021-06-15 15:41:00 [facility] POC GLUCOSE 2021-06-15 13:44:00 [facility] POC GLUCOSE 2021-06-15 13:00:00 [facility] ECG 12-LEAD 2021-06-15 12:48:21 Leni Barkertal HC COMPLETE BLD COUNT 2021-06-15 11:42:00 [facility] W/AUTO DIFF BASIC METABOLIC PANEL 2021-06-15 11:42:00 [facility] ESTIMATED GFR 2021-06-15 11:42:00 [facility] POC GLUCOSE 2021-06-15 01:31:00 [facility] US DUPLEX ARTERIAL LOWER 2021-06-14 21:55:33 [facility] EXTREMITY RIGHT POC GLUCOSE 2021-06-14 21:51:00 [facility] POC GLUCOSE 2021-06-14 17:36:00 [facility] POC GLUCOSE 2021-06-14 13:30:00 [facility] POC GLUCOSE 2021-06-14 13:29:00 [facility] HC COMPLETE BLD COUNT 2021-06-14 10:13:00 [facility] W/AUTO DIFF BASIC METABOLIC PANEL 2021-06-14 10:13:00 [facility] ESTIMATED GFR 2021-06-14 10:13:00 [facility] POC GLUCOSE 2021-06-14 02:45:00 [facility] POC GLUCOSE 2021-06-13 21:47:00 [facility] POC GLUCOSE 2021-06-13 20:46:00 [facility] CBC WITH PLATELET AND 2021-06-13 16:10:00 [facility] DIFFERENTIAL COMPREHENSIVE METABOLIC 2021-06-13 16:10:00 [facility] PANEL ESTIMATED GFR 2021-06-13 16:10:00 [facility] HEMODIALYSIS 2021-06-13 15:26:35 [facility] POC GLUCOSE 2021-06-13 14:30:00 [facility] VANCOMYCIN LEVEL, RANDOM 2021-06-13 10:59:00 Juwan Krueger [facility] POC GLUCOSE 2021-06-13 10:40:00 [facility] POC GLUCOSE 2021-06-13 02:28:00 [facility] POC GLUCOSE 2021-06-13 00:16:00 [facility] POC GLUCOSE 2021-06-12 23:31:00 [facility] POC GLUCOSE 2021-06-12 23:14:00 [facility] POC GLUCOSE 2021-06-12 18:19:00 [facility] POC GLUCOSE 2021-06-12 14:37:00 [facility] POC GLUCOSE 2021-06-12 14:01:00 [facility] POC GLUCOSE 2021-06-12 03:03:00 [facility]AST 2021-06-12 00:53:00 [facility] 2021-06-11 18:08:00 [facility] POC GLUCOSE 2021-06-11 13:39:00 Nagel, [facility]en [facility] [place] HEMODIALYSIS 2021-06-11 12:38:38 Naomie Dickelmo [facility] POC GLUCOSE 2021-06-11 02:01:00 Nagel, [facility] [place] POC GLUCOSE 2021-06-10 22:15:00 Nagel, [facility] [place] POC GLUCOSE 2021-06-10 17:39:00 Nagel, [facility] [place] POC GLUCOSE 2021-06-10 16:05:00 Nagel, Holdentrip Whyte spital [place] TISSUE CULTURE 2021-06-10 15:08:00 Pati, Juwan [facility] spital GRAM STAIN 2021-06-10 15:08:00 Pati, Juwancaron Whyte spital ANAEROBIC CULTURE 2021-06-10 15:04:00 Pati [facility] FUNGUS CULTURE 2021-06-10 15:04:00 Pati, Juwan [facility]te spital AEROBIC CULTURE 2021-06-10 15:04:00 Pati, Juwan Whyte spital AFB CULTURE 2021-06-10 15:04:00 Pati, Juwan Whyte spital GRAM STAIN 2021-06-10 15:04:00 Pati, Juwan Whyte spital AFB STAIN 2021-06-10 15:04:00 Pati, Juwan Whyte spital OR AN ELECTIVE 2021-06-10 14:26:00 Sofi Roach spital SUPRAGLOTTIC AIRWAY Marquita INCISION AND DRAINAGE, 2021-06-10 14:26:00 Pati, [facility] LOWER EXTREMITY HC COMPLETE BLD COUNT 2021-06-10 10:20:00 , [facility] W/AUTO DIFF BASIC METABOLIC PANEL 2021-06-10 10:20:00 [facility] PROTHROMBIN TIME WITH INR 2021-06-10 10:20:00 [facility] PARTIAL THROMBOPLASTIN 2021-06-10 10:20:[address] [facility] TIME (PTT) TYPE AND SCREEN 2021-06-10 [...] Whyte Ho spital [place] HEMODIALYSIS 2021-06-09 13:20:01 [facility] VANCOMYCIN LEVEL, RANDOM 2021-06-09 11:46:00 [facility] POC GLUCOSE 2021-06-09 02:06:00 Robe, Holden Ferrara spital [place] POC GLUCOSE 2021-06-08 22:23:00 Nagel, Holden Whyte [facility] sp[facility] [place] POC GLUCOSE 2021-06-08 17:53:00 Nagel, Holden Ferrara spital [place] HC COMPLETE BLD COUNT 2021-06-08 16:06:00 [facility] W/AUTO DIFF POC GLUCOSE 2021-06-08 13:56:00 Holden Nagel spital [place] URINE CULTURE 2021-06-08 03:56:00 Holden Nagel spital [place] URINALYSIS SCREEN AND 2021-06-08 03:32:00 [facility] MICROSCOPY, WITH REFLEX TO CULTURE POC GLUCOSE 2021-06-08 01:15:00 Robe, Holden Ferrara spital [place] POC GLUCOSE 2021-06-07 22:07:00 Nagel, Holden Ferrara spital [place] POC GLUCOSE 2021-06-07 18:01:00 Holden Nagel Ho spital [place] BASIC METABOLIC PANEL 2021-06-07 14:15:00 [facility] ESTIMATED GFR 2021-06-07 14:15:00 Nagel Holden Whyte Ho sp[facility] [place] POC GLUCOSE 2021-06-07 13:56:00 Nagel, [facility]en [facility] [place] POC GLUCOSE 2021-06-07 02:54:00 Nagel, Holden Whyte Ho spital [place] CT LOWER EXTREMITY W 2021-06-07 01:22:59 [facility] CONTRAST RIGHT POC GLUCOSE 2021-06-06 23:50:00 NagelHolden rodriguez Ho spital [place] POC GLUCOSE 2021-06-06 17:31:00 Nagel, Holden Whyte Ho spital [place] HEMODIALYSIS 2021-06-06 15:05:52 [facility] POC GLUCOSE 2021-06-06 14:03:00 Holden Nagel Ho spital [place] HC COMPLETE BLD COUNT 2021-06-06 10:31:00 [facility] W/AUTO DIFF BASIC METABOLIC PANEL 2021-06-06 10:31:00 [facility] ESTIMATED GFR 2021-06-06 10:31:00 Holden Nagel Ho spital [place] POC GLUCOSE 2021-06-06 10:14:00 Holden Nagel Ho spital [place] POC GLUCOSE 2021-06-06 06:26:00 Holden Nagel Ho sp[facility] [place] POC GLUCOSE 2021-06-06 02:41:00 Holden Nagel Ho spital [place] POC GLUCOSE 2021-06-05 19:51:00 NagelHolden rodriguez Ho spital [place] BASIC METABOLIC PANEL 2021-06-05 18:06:00 [facility] HC COMPLETE BLD COUNT 2021-06-05 18:06:00 [facility] W/AUTO DIFF ESTIMATED GFR 2021-06-05 18:06:00 Holden Nagel Ho spital [place] POC GLUCOSE 2021-06-05 17:48:00 Holden Nagel Ho spital [place] ANAEROBIC CULTURE 2021-06-05 17:10:00 Pati, [facility] ANAEROBIC CULTURE 2021-06-05 16:59:00 Pati, [facility] FUNGUS CULTURE 2021-06-05 16:59:00 Pati, [facility] spital AEROBIC CULTURE 2021-06-05 16:59:00 Pati, [facility] spital AFB CULTURE 2021-06-05 16:59:00 Pati, [facility] spital FUNGUS SMEAR 2021-06-05 16:59:00 Pati, [facility] spital AFB STAIN 2021-06-05 16:59:00 Pati, [facility] sp[facility] OR AN ELECTIVE 2021-06-05 16:52:08 Herrera [facility] SUPRAGLOTTIC AIRWAY TISSUE CULTURE 2021-06-05 16:50:00 [facility], [facility] 2021-06-05 16:50:00 [facility] DEBRIDEMENT, LOWER 2021-06-05 16:16:00 Pati [facility] EXTREMITY POC GLUCOSE 2021-06-05 13:32:00 Holden Nagel [facility] [place] TROPONIN T 2021-06-05 10:58:[address] [facility] ospital ABO AND RH CONFIRMATION 2021-06-05 10:54:00 [facility] BASIC METABOLIC PANEL 2021-06-05 10:53:00 [facility] HC COMPLETE BLD COUNT 2021-06-05 10:53:00 [facility] W/AUTO DIFF ESTIMATED GFR 2021-06-05 10:53:00 Sivan Stewart [facility] PROTHROMBIN TIME WITH INR 2021-06-05 10:52:00 [facility] PARTIAL THROMBOPLASTIN 2021-06-05 10:52:00 [facility] TIME (PTT) HCG QUALITATIVE, SERUM 2021-06-05 10:52:00 Myron Fernandes [facility] SCREEN POC GLUCOSE 2021-06-05 09:40:00 [facility]hal[facility], [facility] BLOOD CULTURE, AEROBIC & 2021-06-05 08:27:00 Carlos Dhaliwal [facility] ANAEROBIC Vipin POC GLUCOSE 2021-06-05 07:42:00 [facility] POC GLUCOSE 2021-06-05 06:57:00 [facility] POC GLUCOSE 2021-06-05 06:10:00 [facility] BLOOD CULTURE, AEROBIC & 2021-06-05 04:31:00 Carlos Dhaliwal [facility] ANAEROBIC [place]ipin POC GLUCOSE 2021-06-05 04:04:00 [facility] POC GLUCOSE 2021-06-05 03:51:00 [facility] TYPE AND SCREEN 2021-06-05 03:40:00 Carlos Dhaliwal [facility] POC GLUCOSE 2021-06-05 03:05:00 Carlos Dhaliwal [facility] POC GLUCOSE 2021-06-05 02:23:00 Carlos Dhaliwal [facility]ip[facility] COVID-19 QUALITATIVE 2021-06-05 02:08:00 [facility] COMPLETE BLD COUNT 2021-06-05 01:24:00 SamantaSivan [facility] W/AUTO DIFF PROTHROMBIN TIME WITH INR 2021-06-05 01:24:00 [facility] PARTIAL THROMBOPLASTIN 2021-06-05 01:24:00 hollySivan [facility] TIME (PTT) COMPREHENSIVE METABOLIC 2021-06-05 01:24:00 hollySivan [facility] PANEL CREATINE KINASE, TOTAL 2021-06-05 01:24:[address] [facility] B NATRIURETIC PEPTIDE 2021-06-05 01:24:00 SamantaSivan [facility] TROPONIN T 2021-06-05 01:24:00 Char Viramontes [facility] ospital ESTIMATED GFR 2021-06-05 01:24:00 Sivan Stewart [facility] ECG ED PRELIMINARY 2021-06-05 00:31:28 Sivan Stewart [facility] INTERPRETATION ECG 12-LEAD 2021-06-05 00:19:17 Carlos Dhaliwal Ho marilyn [facility] POC GLUCOSE 2021-05-25 18:04:00 Awe, Marilu Arvin [facility] POC GLUCOSE 2021-05-25 14:00:00 Awe, Marilu Arvin [facility] CBC HEMOGRAM 2021-05-25 10:12:00 Awe, Marilu Arvin [facility] BASIC METABOLIC PANEL 2021-05-25 10:12:00 Awe, [facility] ESTIMATED GFR 2021-05-25 10:12:00 Awe, Marilu Arvin [facility] POC GLUCOSE 2021-05-25 02:49:00 Awe, Marilu Arvin [facility] POC GLUCOSE 2021-05-24 23:33:00 Awe, Marilu Arvin [facility] POC GLUCOSE 2021-05-24 17:56:00 Awe, Marilu Arvin [facility] POC GLUCOSE 2021-05-24 13:59:00 Awe, Marilu Arvin [facility] CBC HEMOGRAM 2021-05-24 10:12:00 Awe, Marilu Arvin [facility] BASIC METABOLIC PANEL 2021-05-24 10:12:00 [facility] 2021-05-24 10:12:00 Awe, Marilu Arvin [facility] POC GLUCOSE 2021-05-24 09:59:00 Awe, Marilu Arvin [facility] POC GLUCOSE 2021-05-24 02:26:00 Awe, [facility]u [facility] 2021-05-24 00:03:00 Awe, [facility] TRANSFUSE RED BLOOD CELLS 2021-05-23 22:30:00 [facility] TRANSFUSE RED BLOOD CELLS 2021-05-23 21:30:00 [facility] POC GLUCOSE 2021-05-23 19:03:00 Awe, [facility] TYPE AND SCREEN 2021-05-23 14:38:00 [facility] HC COMPLETE BLD COUNT 2021-05-23 14:38:00 [facility] W/AUTO DIFF PREPARE RBC 2021-05-23 14:38:[address] [facility] ospital PREPARE PLATELET PHERESIS 2021-05-23 14:38:00 [facility] POC GLUCOSE 2021-05-23 14:35:00 Awe, [facility] HEMODIALYSIS 2021-05-23 13:42:30 [facility] CBC HEMOGRAM 2021-05-23 12:31:00 Awe, [facility] BASIC METABOLIC PANEL 2021-05-23 12:31:00 Awe, [facility] ESTIMATED GFR 2021-05-23 12:31:00 Awe, [facility] POC GLUCOSE 2021-05-23 11:22:00 Awe, [facility] POC GLUCOSE 2021-05-23 03:30:00 [facility] 2021-05-22 23:20:00 Awe, [facility] POC GLUCOSE 2021-05-22 17:20:00 Awe, [facility] POC GLUCOSE 2021-05-22 13:27:00 Awe, [facility] BASIC METABOLIC PANEL 2021-05-22 12:31:00 [facility] MAGNESIUM LEVEL 2021-05-22 12:31:00 Nikki Haynes osgio Mcginnis CBC HEMOGRAM 2021-05-22 12:31:00 Nikki Haynes ospital Rahel ESTIMATED GFR 2021-05-22 12:31:00 Nikki Haynes ospital Rahel POC GLUCOSE 2021-05-22 10:54:00 Awe, [facility] POC GLUCOSE 2021-05-22 07:28:00 Awe, [facility] POC GLUCOSE 2021-05-22 01:11:00 Awe, [facility] HEPATITIS B SURFACE 2021-05-21 21:08:00 [facility] ANTIBODY HEMODIALYSIS 2021-05-21 20:57:40 [facility] POC GLUCOSE 2021-05-21 17:57:00 Awe, [facility] POC GLUCOSE 2021-05-21 13:55:00 Awe, [facility] POC GLUCOSE 2021-05-21 10:41:00 Kye Barber COVID-19 ANTI-SPIKE IGG 2021-05-21 07:43:00 Ishan [facility] ANTIBODY TITER Esa BASIC METABOLIC PANEL 2021-05-21 07:43:00 [facility] Rahel MAGNESIUM LEVEL 2021-05-21 07:43:00 Nikki Haynes ospigabe Mcginnis CBC HEMOGRAM 2021-05-21 07:43:00 Nikki Haynes ospigabe Mcginnis COVID-19 SEROLOGY PATIENT 2021-05-21 07:43:00 Clyde Olmstead [facility] SURVEILLANCE Esa ESTIMATED GFR 2021-05-21 07:43:00 Andre Sofia [place] LACTIC ACID LEVEL 2021-05-21 07:43:00 Leodan Stevenson [facility] POC GLUCOSE 2021-05-21 06:35:00 Kye Barber HC COMPLETE BLD COUNT 2021-05-21 02:49:00 [facility] W/AUTO DIFF BASIC METABOLIC PANEL 2021-05-21 02:49:00 [facility] LACTIC ACID LEVEL 2021-05-21 02:49:00 [facility] OSMOLALITY, SERUM 2021-05-21 02:49:00 [facility] BETA HYDROXYBUTYRATE 2021-05-21 02:49:00 [facility] PROCALCITONIN 2021-05-21 02:49:00 [facility] ESTIMATED GFR 2021-05-21 02:49:00 [facility] POC GLUCOSE 2021-05-21 02:34:00 Kye Barber spital HC COMPLETE BLD COUNT 2021-05-21 00:28:00 [facility] W/AUTO DIFF POC GLUCOSE 2021-05-20 23:57:00 Kye Barber spital BASIC METABOLIC PANEL 2021-05-20 23:20:00 Andre Sofia [facility] [place] LACTIC ACID LEVEL 2021-05-20 23:20:00 Kimberlyn [facility] [place] ESTIMATED GFR 2021-05-20 23:20:00 Andre Sofia [...] TRANSFUSE RED BLOOD CELLS 2021-05-20 17:21:00 [facility] [place] TRANSFUSE PLATELET 2021-05-20 15:52:00 Wander [facility] PHERESIS BASIC METABOLIC PANEL 2021-05-20 15:25:00 [facility] [place] ESTIMATED GFR 2021-05-20 15:25:00 Andre Sofia spital [place] POC GLUCOSE 2021-05-20 14:48:00 Kye Barber spital HEMODIALYSIS 2021-05-20 11:31:20 [facility] POC GLUCOSE 2021-05-20 10:44:00 Kye Barber spital HEPATITIS B SURFACE 2021-05-20 08:49:00 [facility] ANTIGEN HEPATITIS B SURFACE AB, 2021-05-20 08:49:00 [facility] QUANTITATIVE HC COMPLETE BLD COUNT 2021-05-20 08:25:00 [facility] W/AUTO DIFF BASIC METABOLIC PANEL 2021-05-20 08:25:00 [facility] MAGNESIUM LEVEL 2021-05-20 08:25:[address] [facility] ospital PHOSPHORUS LEVEL 2021-05-20 08:25:00 [facility] PROTHROMBIN TIME WITH INR 2021-05-20 08:25:00 Leodan Stevenson [facility] ESTIMATED GFR 2021-05-20 08:25:00 Juwan Krueger spital HEMOGLOBIN A1C 2021-05-20 08:25:00 Nikki Haynes H ospital Rahel POC GLUCOSE 2021-05-20 06:34:00 Kye Barber spital ARTERIAL BLOOD GAS 2021-05-20 04:36:00 [facility]AD 2021-05-20 03:42:28 [facility] spital PROTHROMBIN TIME WITH INR 2021-05-20 02:54:00 [facility] HC COMPLETE BLD COUNT 2021-05-20 02:54:00 [facility]FF BASIC METABOLIC PANEL 2021-05-20 02:54:00 [facility] LACTIC ACID LEVEL 2021-05-20 02:54:00 Graham [facility] VENOUS BLOOD GAS 2021-05-20 02:54:00 [facility] Claudia ospital ESTIMATED GFR 2021-05-20 02:54:00 [facility] Ho spital POC GLUCOSE 2021-05-20 02:54:00 Kye Barber spital XR CHEST 1 VW PORTABLE 2021-05-20 02:51:13 [facility] [place] < 1 HOUR 2021-05-20 01:30:15 Juwan Krueger spital TRANSFUSE RED BLOOD CELLS 2021-05-20 00:59:00 Juwan Krueger [facility] OR AN ELECTIVE 2021-05-20 00:53:01 Sukhjinder Medina spital SUPRAGLOTTIC AIRWAY Kendall INCISION AND DRAINAGE, 2021-05-20 00:45:00 [facility] HEM[facility]OMA HC COMPLETE BLD COUNT 2021-05-19 22:13:00 [facility] W/AUTO DIFF BASIC METABOLIC PANEL 2021-05-19 22:13:00 [facility] PROTHROMBIN TIME WITH INR 2021-05-19 22:13:00 [facility] PARTIAL THROMBOPLASTIN 2021-05-19 22:13:00 [facility] TIME (PTT) MAGNESIUM LEVEL 2021-05-19 22:13:[address] [facility] ospital ESTIMATED GFR 2021-05-19 22:13:00 Juwan Krueger spital POC GLUCOSE 2021-05-19 22:00:00 Errol Luther [facility] SURGICAL PATHOLOGY REQUEST 2021-05-19 21:47:00 Errol Luther [facility] POC GLUCOSE 2021-05-19 21:17:00 Juwan Krueger spital ACTIVATED CLOTTING TIME 2021-05-19 19:12:00 Kye Barber [facility] OR AN ELECTIVE 2021-05-19 18:11:04 Sukhjinder Medina spital SUPRAGLOTTIC AIRWAY [place] LOWER EXTREMITY 2021-05-19 17:59:00 Juwan Krueger spital ANGIOGRAM,POSSIBLE ANGIOPLASTY,POSSIBLE STENT XR CHEST 1 VW PORTABLE 2021-05-19 15:47:37 [facility] ESTIMATED GFR 2021-05-19 14:34:00 Juwan Krueger spital POC PANEL 2021-05-19 14:34:00 Juwan Krueger spital TYPE AND SCREEN 2021-05-19 14:05:00 Isabell Dickerson marilyn Romero PREPARE RBC 2021-05-19 14:05:00 [facility] FRESH FROZEN 2021-05-19 14:05:00 [facility] PLASMA PREPARE PLATELET PHERESIS 2021-05-19 14:05:00 Char Viramontes [facility] BASIC METABOLIC PANEL 2021-05-19 14:00:[facility] PROTHROMBIN TIME WITH INR 2021-05-19 14:00:00 Jayla [facility] Larry Romero HC COMPLETE BLD COUNT 2021-05-19 14:00:00 [facility] W[facility] DIFF Larry Romero ABO AND RH CONFIRMATION 2021-05-19 14:00:00 Pati [facility] ESTIMATED GFR 2021-05-19 14:00:00 Isabell Dickerson COVID-19 QUALITATIVE 2021-05-19 12:40:00 Juwan Krueger [facility] RT-PCR MEDICAL RELEASE/CLEARANCE 2021-05-13 06:01:00 Doctor Unassigned, [facility] FORMS [facility] US DUPLEX ARTERIAL LOWER 2021-05-12 15:21:31 Juwan Krueger [facility] EXTREMITY BILATERAL Emergency department visit 2013-04-15 05:00:00 [...] procedure) Therapeutic, prophylactic, 2013-04-15 05:00:00 [facility] [place] or diagnostic injection (specify substance or drug); [...] Comments Source Future Scheduled 2021-07-22 COVID-19 VACCINE [facility] Test 13:11:04 (1) [code = COVID-19 VACCINE (1)] Future Scheduled 2021-07-22 Hepatitis C [facility] Test 13:11:04 screening (procedure) [code = 866489638] Future Scheduled 2021-07-22 [facility] 13:11:04 malignant neoplasm of cervix (procedure) [code = 530129134] Future Scheduled 2021-07-22 INFLUENZA [facility]ACCINE [facility] 13:11:04 [code = INFLUENZA VACCINE] Encounters Start End Encounter Admission Attending Care Care Encounter Source Date/Time Date/Time Type Type Clinicians Facility Department ID 2021-07-22 Outpatient nullFlavo [facility] [id number] [facility]oria 00:10:30 r Medical 05 l [facility] 2021-07-22 Preadmit nullFlavo [id number] Memoria 00:10:30 r [facility] [address] [facility] 2021-07-22 Outpatient nullFlavo [facility] [id number] Memoria 00:10:30 r Medical 06 l [facility] 2021-08-20 2021-08-20 [facility] [id number] [facility] 12:30:00 12:30:00 0302 Medica l [facility] 2021-07-08 2021-07-08 Office Ann, 1.2.840.1 [id number] Methodi 12:54:05 14:25:36 Visit Bessie 43236.1.[address] [place] 3.430.2.7 Hosp jo-ann .3.986671 l .8 2021-07-08 2021-07-08 Telephone Anthony, 1.2.840.1 [id number] Methodi 00:00:00 00:00:[address] 3.430.2.7 Hospit a .3.205945 l .8 2021-07-08 2021-07-08 Travel 1.2.840.1 1.2.095.508 6046 [id number] Methodi 00:00:00 00:00:[address] 3.430.2.7 0.2.7.3.698 Ho spita .3.082733 084.8 l .8 2021-07-03 2021-07-03 Telephone Ann, 1.2.840.1 [id number] 2099 [id number] Methodi 00:00:00 00:00:[address] [place] 3.430.2.7 Hosp jo-ann .3.815388 l .8 2021-06-24 2021-06-24 Outpatient Deshazo_T [facility] [id number] Devoted 05:31:00 05:31:00 0104 Medica l Group 2021-06-23 2021-06-23 Telephone Anthony, 1.2.840.1 [id number] [id number] Methodi 00:00:00 00:00:[address] 3.430.2.7 Hospit a .3.917703 l .8 2021-06-04 2021-06-18 Hospital Sivan Stewart 1.2.840.1 [id number] Methodi 18:20:00 18:13:00 Encounter Carlos Dhaliwal 31010.1.[address] [facility]ra 3.430.2.7 Hospita Shanda Mckenzie Kalen .3.519793 l Aurelio Schumacher .8 2021-06-16 2021-06-16 Anesthesia Yousif, 1.2.840.1 [id number] Methodi 23:59:59 23:59:59 Event Alesia Coelho 90735.1.[address] 3.430.2.7 Hospit a .3.789111 l .8 2021-06-16 2021-06-16 Surgery Diaz, 1.2.840.1 [id number] Methodi 13:30:00 17:45:[address] [facility] 3.430.2.7 Hosp jo-ann .3.630699 l .8 2021-06-16 2021-06-16 Anesthesia Jose Carlos, 1.2.840.1 [id number] [id number] Methodi 15:19:00 17:19:00 Event Sethlachelleayo 37672.1.1 309 s t V. 3.430.2.7 Hospit a .3.166132 l .8 2021-06-10 2021-06-10 Surgery PatiJuwan 1.2.840.1 [id number] Methodi 08:00:00 10:30:[address] 3.430.2.7 Hospit a .3.403059 l .8 2021-06-10 2021-06-10 Anesthesia Doc, 1.2.840.1 [id number] Methodi 08:26:00 09:40:00 Event Sofi 34125.1.[address] Marquita 3.430.2.7 Hosp jo-ann .3.010997 l .8 2021-06-09 2021-06-09 Prep for Robert, 1.2.840.1 [id number] 703 [id number] Methodi 00:00:00 00:00:00 Surgery Gayle 91662.1.[address] 3.430.2.7 Hospit a .3.460356 l .8 2021-06-09 2021-06-09 Prep for Robert, 1.2.840.1 [id number] 061 [id number] Methodi 00:00:00 00:00:00 Surgery Gayle 14818.1.[address] 3.430.2.7 Hospit a .3.075809 l .8 2021-06-05 2021-06-05 Anesthesia Frankie Chowdhury 1.2.840.1 [id number] Methodi 10:16:00 11:41:00 Event Chandler Silverman 63021.1.[address] 3.430.2.7 Hospit a .3.480610 l .8 2021-06-05 2021-06-05 Surgery Juwan Krueger 1.2.840.1 [id number] Methodi 09:30:00 11:05:[address] 3.430.2.7 Hospit a .3.265495 l .8 2021-06-03 2021-06-03 Prep for Anthony, 1.2.840.1 [id number] Methodi 00:00:00 00:00:00 Surgery Forrest 21777.1.[address] 3.430.2.7 Hospit a .3.168341 l .8 2021-06-03 2021-06-03 Telephone Adelita, 1.2.840.1 [id number] Methodi 00:00:00 00:00:00 Crysandria 31355.1.1 218 s t 3.430.2.7 Hospit a .3.976756 l .8 2021-05-28 2021-05-28 Outpatient Adams_R [facility] [id number] 021 Devoted 05:00:00 05:00:00 1208 Medica l Group 2021-05-27 2021-05-27 Patient Tam, 1.2.840.1 [id number] [id number] Methodi 00:00:00 00:00:00 Outreach Maria M 10781.1.[address] 3.430.2.7 Hospit a .3.072359 l .8 2021-05-27 2021-05-27 Travel 1.2.840.1 1.2.152.374 9376 [id number] Methodi 00:00:00 00:00:[address] 3.430.2.7 0.2.7.3.698 Ho spita .3.788606 084.8 l .8 2021-05-27 2021-05-27 Orders Ramana, 1.2.840.1 [id number] 2099 [id number] Methodi 00:00:00 00:00:00 Only Anila 27239.1.[address] 3.430.2.7 Hospit a .3.844735 l .8 2021-05-26 2021-05-26 Outpatient Adams_R DMG G [id number] 021 Devoted 03:30:00 03:30:00 1206 Medica l Group 2021-05-26 2021-05-26 Telephone Anthony, 1.2.840.1 [id number] 2099 [id number] Methodi 00:00:00 00:00:[address] 3.430.2.7 Hospit a .3.278120 l .8 2021-05-19 2021-05-25 Juwan Mendez 1.2.840.1 [id number] 2099 [id number] Methodi 06:00:00 15:59:00 Kye Peres 11322.1.[address] Marilu Kochun 3.430.2.7 Hospita .3.604413 l .8 2021-05-21 2021-05-21 [facility] [id number] 021 Devoted 03:30:00 03:30:00 1201 Medica l Group 2021-05-19 2021-05-19 Anesthesia Adam, 1.2.840.1 [id number] Methodi 18:45:00 20:31:00 Event Sukhjinder 74826.1.[address] [place] 3.430.2.7 Hospit a .3.567359 l .8 2021-05-19 2021-05-19 Surgery Juwan Krueger 1.2.840.1 [id number] Methodi 18:50:00 19:55:[address] 3.430.2.7 Hospit a .3.280458 l .8 2021-05-19 2021-05-19 Anesthesia Sukhjinder Medina 1.2.840.1 [id number] Methodi 12:00:00 15:14:00 Event Hanane Ledezma 00235.1.[address] 3.430.2.7 Hospit a .3.648433 l .8 2021-05-19 2021-05-19 Surgery Juwan Krueger 1.2.840.1 [id number] Methodi 12:05:00 14:45:[address] 3.430.2.7 Hospit a .3.756577 l .8 2021-05-19 2021-05-19 Travel 1.2.840.1 1.2.327.363 4997 [id number] Methodi 00:00:00 00:00:[address] 3.430.2.7 0.2.7.3.698 Ho spita .3.485457 084.8 l .8 2021-05-14 2021-05-14 Telephone Corin 1.2.840.1 [id number] Methodi 00:00:00 00:00:[address] 3.430.2.7 Hospit a .3.709531 l .8 2021-05-14 2021-05-14 Prep for Anthony, 1.2.840.1 [id number] Methodi 00:00:00 00:00:00 Surgery Forrest 13984.1.[address] 3.430.2.7 Hospit a .3.712524 l .8 2021-05-13 2021-05-13 Orders Doctor JOANNA 1.2.840.114 [id number] Univers 00:00:00 00:00:00 Only Unassigned, MAGDALENO 350.1.13.10 ity of [place] [facility] 4.2.7.2.686 Baljinder as [id number] [address] 2021-05-12 2021-05-12 Office PatiJuwan 1.2.840.1 [id number] Methodi 09:02:46 09:32:[address] 3.430.2.7 Hospit a .3.675900 l .8 2021-05-12 2021-05-12 Telephone Anthony, 1.2.840.1 [id number] 2099 [id number] Methodi 00:00:00 00:00:[address] 3.430.2.7 Hospit a .3.699668 l .8 2021-05-12 2021-05-12 Travel 1.2.840.1 1.2.950.493 4832 536663 Methodi 00:00:00 00:00:[address] 3.430.2.7 0.2.7.3.698 Ho spita .3.545431 084.8 l .8 2021-05-08 2021-05-08 Orders Anthony, 1.2.840.1 [id number] Methodi 00:00:00 00:00:00 Only Forrest 68371.1.[address] 3.430.2.7 Hospit a .3.186604 l .8 2021-05-08 2021-05-08 Telephone Boles, 1.2.840.1 [id number] Methodi 00:00:00 00:00:[address] 3.430.2.7 Hospit a .3.558779 l .8 2021-05-05 2021-05-05 Office Juwan Krueger 1.2.840.1 [id number] Methodi 14:18:48 15:41:[address] 3.430.2.7 Hospit a .3.919523 l .8 2021-05-05 2021-05-05 Travel 1.2.840.1 1.2.926.783 7387 053402 Methodi 00:00:00 00:00:[address] 3.430.2.7 0.2.7.3.698 Ho spita .3.005083 084.8 l .8 2021-05-01 2021-05-01 Peg Diaz, 1.2.840.1 [id number] 2100 [id number] Methodi 00:00:00 00:00:[address] [facility] 3.430.2.7 Hosp jo-ann .3.249582 l .8 2021-03-21 2021-03-21 Outpatient DMG DREWG [id number] 021 Devoted 08:01:00 08:01:00 1001 Medica l Group 2021-01-21 2021-01-29 Inpatient [facility] [id number] [facility] 15:50:00 20:14:[address] 2021-01-21 2021-01-29 Inpatient U AYDEE, [facility] CAR 7512 [facility] 10:50:00 15:14:00 AKUA 2021-01-24 2021-01-24 Outpatient DMG DREWG [id number] 021 [facility] 08:00:00 08:00:00 0806 Medica l Group 2021-01-03 2021-01-03 Office DOMINIQUE Diane 1.2.840.114 [id number] 07:44:43 09:30:54 Visit Alexandr ALTMAN 350.1.13.58 MEDICAL 9.2.7.2.686 [facility] [id number] 1 2021-01-03 2021-01-03 Office DOMINIQUE Diane 1.2.840.114 [id number] [place] 07:44:43 09:30:54 Visit Alexandr ALTMAN 350.1.13.58 H ealt MEDICAL 9.2.7.2.686 [facility] [id number] 1 2020-12-24 2020-12-25 Outpatient nullFlavo Dig[facility] [id number] Memoria 15:32:00 04:59:00 r Disease 11 l [facility] [place] 2020-12-24 2020-12-24 Outpatient PHILIPPE, [facility] 7511 [facility] 10:32:00 23:59:00 HUI 2020-10-27 2020-10-27 Letter Lamin [facility] 1.2.840.114 [id number] 00:00:00 00:00:00 (Out) Oz Lehman 350.1.13.10 [place] 4.2.7.2.686 Professio [id number] nal 059 [facility] 2020-10-24 2020-10-24 Orders Doctor JOANNA 1.2.840.114 [id number] 00:00:00 00:00:00 Only Unassigned, MAGDALENO 350.1.13.10 [place] [facility] 4.2.7.2.686 [id number] 2020-09-24 2020-09-24 Refill Carlos [facility] 1.2.840.114 [id number] 00:00:00 00:00:00 Jose Luis Lehman 350.1.13.10 [place] 4.2.7.2.686 Professio [phone] nal 220 [facility] 2020-09-09 2020-09-09 Patient Daniel [facility] 1.2.840.114 [id number] 00:00:00 00:00:00 Outreach Earl SMITH 350.1.13.10 Manuel [facility] 4.2.7.2.686 ANNABEL [id number] [id number] 2020-07-23 2020-07-23 Office Black [facility] 1.2.414.860 5139 [id number] 13:31:20 14:37:36 Visit Deja PRIMARY 350.1.13.10 A [facility] 4.2.7.2.686 PAVHARISHON [id number] 198 2020-06-27 2020-06-27 Office Lamin [facility] 1.2.840.114 [id number] Univers 10:05:43 11:00:00 Visit Oz LEHMAN 350.1.13.10 itcaron [facility] [id number] Amisha lombardo DAVIS [id number] Ny dical NAL 059 [facility] 2020-06-27 2020-06-27 Outpatient R LAMIN [facility] [id number] Univers 09:30:00 11:00:00 SENDIL ity [facility] 2020-01-25 2020-01-31 Inpatient 1 ChivoJose husseinRei [facility] GPY [id number] 21:31:00 18:15:00 Rei Waldron [facility] 2016-07-24 2016-07-30 Inpatient [facility] [id number] Memoria 02:04:00 16:20:[address] 2016-06-10 2016-06-15 Inpatient [facility] [id number] Memoria 16:02:00 18:23:[address] 2014-06-26 2014-06-26 EC [facility] [id number] Memoria 05:25:00 15:14:00 Emergency r [place] 08 [facility] 2013-04-14 2013-04-15 Emergency nullFlavo [id number] Memoria 21:04:00 01:45:[address] 2012-03-14 2012-03-14 Emergency nullFlavo [id number] Memoria 16:32:00 22:39:00 r [facility] [address] [facility] 2011-11-28 2011-11-30 OU nullFlavo [facility] [id number] Memoria 12:16:00 20:40:00 r [facility] 03 [facility] 2011-09-18 2011-09-18 Emergency nullFlavo [facility] [id number] Memoria 08:23:00 13:34:00 r Medical 02 [facility] 2011-09-01 2011-09-09 Inpatient nullFlavo [facility] [id number] Memoria 01:40:00 15:00:00 [facility] 2011-08-19 2011-08-23 Inpatient nullFlavo [facility] [id number] Memoria 14:25:00 15:28:00 [facility] Results Test Description Test Time Test Comments Results Result Comments Source AFB culture 2021-07-22 18:13:19 Test Item Value Reference Range Interpretation Comme nts AFB culture isolate No growth after 6 weeks of Specimen InformationSpecimen (test code = 543-9) incubation. Source: DrainageSpecimen Site: Thigh: infected wound right [id number] 18:15:13 Test Item Value Reference Range Interpretation Comments Fungus culture No growth Specimen isolate (test after 4 weeks InformationSp ecimen code = 1441) of Source: TissueS pecimen incubation. Site: [facility]igh [facility] [id number] 14:31:13 Test Item Value Reference Range Interpretation Comments Anaerobic No anaerobic Specimen culture isolate organisms InformationS pecimen (test code = isolated. Source: TissueS pecimen 552) [id number] 16:51:58 Test Item Value Reference Range Interpretation Comments Gram stain No WBC's or Specimen isolate (test organisms seen. Information Specimen code = 1469) Source: TissueS pecimen [facility] [id number] 16:51:58 Test Item Value Reference Range Interpretation Comments Aerobic culture No growth Specimen isolate (test after 3 days. InformationSp ecimen code = 498) Source: TissueS pecimen [facility]pf7261[facility]60 16:51:58 Test Item Value Reference Range Interpretation Comments Fungus smear No fungi Specimen (test code = observed. InformationSpec imen Source: 1443) TissueSpecimen Site: [facility] kpuvust6839-99-80 17:00:57 Test Item Value Reference Range Interpretation Comments POC glucose (test code 79 mg/dL 65-99 Opera tor Name: Eboni = 88443-4) AmiDevice ID: [id number] [facility] , pkiyk3427-66-16 20:46:00 Test Item Value Reference Range Interpretation Comments test urine, POC (test Negative code = 6070061) Internal QC (test code = 257) QC acceptable [facility] 12 hwfu3033-15-55 17:27:33 Test Item Value Reference Range Interpretation Comments Ventricular rate (test code = 253) Atrial rate (test code = 255) OR interval (test code = 266) QRSD interval [...] of 04-JUN-2021 18:19,-No significant change was found- [facility] and uscujy5691-47-56 11:06:00 Test Item Value Reference Range Interpretation Comments ABO grouping (test code = 883-9) B Rh type (test code = 70906-7) POS Antibody screen (gel) (test code = NEG 890-4) [facility]issue qhzyjxj0828-21-31 20:18:46 Test Item Value Reference Range Interpretation Comments Tissue culture No growth Specimen isolate (test after 3 days. InformationSp ecimen code = 31378-4) Source: Tiss ueSpecimen Site: Thigh: in fected right thigh wou nd [facility] BrookAF[facility] yocul9665-74-53 20:24:42 Test Item Value Reference Range Interpretation Comments AFB stain No acid fast Specimen (test code = bacilli (AFB) InformationSpe cimen 676-7) seen. Source: Drainag eSpecimen Site: Thigh: in fected wound right th igh [facility] jufnxep0563-09-07 09:49:57 Test Item Value Reference Range Interpretation Comments Urine culture No growth Specimen isolate (test after 24 InformationSpe cimen code = 45574-0) hours Source: Urin eSpecimen Site: Clean cat ch [facility] and Rh evdxyzmhbdmq6714-74-05 12:52:00 Test Item Value Reference Range Interpretation Comments ABO grouping (test code = 883-9) B Rh type (test code = 47734-3) POS [facility]par RBC, 1 Ybozy3429-26-68 22:22:00 Test Item Value Reference Range Interpretation Comments Product name (test code Red Blood Cells -1, = 25) Leukored Unit number (test code = [id number]) Product code (test code Z2859J56 = 3092) Dispense status (test Transfused code = 24) Blood expiration date (test code = 302) Blood type code (test code = 308) Blood type (test code = B POSITIVE 1314) Compatibility (test code Compatible = 6400) [facility] oxkqruq1644-14-28 20:10:46 Test Item Value Reference Range Interpretation Comments Case number (test code = [id number]) Surgical pathology See link below for report (test code = PDF Lab Report [id number]) Result status (test code This is Final Report = [id number]) for [id number] [facility] platelet pheresis, 1 Objxi8945-80-61 15:35:00 Test Item Value Reference Range Interpretation Comments Product name (test code Bogdan Fraire LR, Path = 25) Red cont3 Unit number (test code = [id number]) Product code (test code B9542O95 = 3092) Dispense status (test Transfused code = 24) Blood expiration date (test code = 302) Blood type code (test code = 308) Blood type (test code = O POSITIVE 1314) Compatibility (test code Not required = 6400) [facility] BrookActivated clotting wxwn3215-21-44 12:13:24 Test Item Value Reference Range Interpretation Comments Activated clotting time See_Comment H Oper ator Name: (test code = 5298) Bryn Morales ID: [id number] [Automated mess age] The system [employer] generated this result transmitted ref erence range: 96 - 152 sec. The reference r leo was not used to interpret this result as normal/abnor mal. Lab Interpretation (test Abnormal code = 51639-9) [facility] BrookPOC frhoa1948-32-62 14:37:48 Test Item Value Reference Range Interpretation Comments POC sodium (test code = 138 mmol/L 127-011 3865-0) POC potassium (test 5.5 mmol/L 3.5-5.0 H code = 6298-4) POC glucose (test code 295 mg/dL 65-99 H = 2339-0) POC creatinine (test 5.3 mg/dl 0.5-0.9 H Operato r Name: Pat code = 54792-2) [place] ID: [id number] POC hemoglobin (test 18.4 g/dL 12.0-16.0 H code = 718-7) POC hematocrit (test 54 % 37-47 H code = 4544-3) Lab Interpretation Abnormal (test code = 98729-8) [place] 284391-08-11 08:17:00 Test Item Value Reference Range Interpretation Comments Glucose Lvl (test code = Glucose Lvl) 94 70-99 [place] 47[address]-08-11 08:17:00 Test Item Value Reference Range Interpretation Comments BUN (test code = BUN) 27 7-22 [place] 909431-08-11 08:17:00 Test Item Value Reference Range Interpretation Comments Creatinine Lvl (test code = Creatinine 4.95 0.50-1.40 Lvl) [place] 909431-08-11 08:17:00 Test Item Value Reference Range Interpretation Comments Sodium Lvl (test code = Sodium Lvl) 136 135-145 [place] 909431-08-11 08:17:00 Test Item Value Reference Range Interpretation Comments Potassium Lvl (test code = Potassium 3.9 3.5-5.1 Lvl) [place] 909431-08-11 08:17:00 Test Item Value Reference Range Interpretation Comments Chloride Lvl (test code = Chloride Lvl) 103 95-109 [place] 909431-08-11 08:17:00 Test Item Value Reference Range Interpretation Comments CO2 (test code = CO2) 30 24-32 [place] 909431-08-11 08:17:00 Test Item Value Reference Range Interpretation Comments AGAP (test code = AGAP) 6.9 10.0-20.0 [place] 909431-08-11 08:17:00 Test Item Value Reference Range Interpretation Comments Calcium Lvl (test code = Calcium Lvl) 8.5 8.5-10.5 [facility]2021-08-11 08:17:00 Test Item Value Reference Range Interpretation Comments eGFR (test code = eGFR) 10 [facility]2021-08-11 08:17:00 Test Item Value Reference Range Interpretation Comments Phosphorus (test code = Phosphorus) 3.0 2.5-4.5 [facility]2021-08-11 08:17:00 Test Item Value Reference Range Interpretation Comments Magnesium Lvl (test code = Magnesium 2.4 1.8-2.4 Lvl) [facility]QvczldjJHMZGSHHOC6472-16-55 08:17:00 Test Item Value Reference Range Interpretation Comments WBC (test code = WBC) 2.3 3.7-10.4 [place] 467951-08-11 08:17:00 Test Item Value Reference Range Interpretation Comments RBC (test code = RBC) 2.65 4.20-5.40 [facility] CenterMfjstdfAPECUQNOWE7824-25-15 08:17:00 Test Item Value Reference Range Interpretation Comments Hgb (test code = Hgb) 7.9 12.0-16.0 [place] 467951-08-11 08:17:00 Test Item Value Reference Range Interpretation Comments Hct (test code = Hct) 24.0 36.0-48.0 [facility] CenterAgynsvuYPVCTAFKZX0414-26-50 08:17:00 Test Item Value Reference Range Interpretation Comments MCV (test code = MCV) 90.6 80.0-98.0 [facility] CenterGmzjxbpBNTDDQULGI7994-49-25 08:17:00 Test Item Value Reference Range Interpretation Comments MCH (test code = MCH) 29.7 pg 27.0-31.0 [place] 467951-08-11 08:17:00 Test Item Value Reference Range Interpretation Comments MCHC (test code = MCHC) 32.7 32.0-36.0 [place] 467951-08-11 08:17:00 Test Item Value Reference Range Interpretation Comments RDW (test code = RDW) 19.1 11.5-14.5 [place] 467951-08-11 08:17:00 Test Item Value Reference Range Interpretation Comments Platelet (test code = Platelet) 71 133-450 [facility] CenterGqnblbeRYKKVPBJWM8669-44-36 08:17:00 Test Item Value Reference Range Interpretation Comments MPV (test code = MPV) 9.9 7.4-10.4 [place] 467951-08-11 08:17:00 Test Item Value Reference Range Interpretation Comments Segs (test code = Segs) 56.1 45.0-75.0 [place] 467951-08-11 08:17:00 Test Item Value Reference Range Interpretation Comments Lymphocytes (test code = Lymphocytes) 28.9 20.0-40.0 [place] 467951-08-11 08:17:00 Test Item Value Reference Range Interpretation Comments Monocytes (test code = Monocytes) 8.1 2.0-12.0 [place] 467951-08-11 08:17:00 Test Item Value Reference Range Interpretation Comments Eosinophils (test code = 5.9 See_Comment [A utomated message] The Eosinophils) system which ge nerated this result tra nsmitted reference range : <=4.0. The reference r leo was not used to int erpret this result as normal/abnormal . [place] 467951-08-11 08:17:00 Test Item Value Reference Range Interpretation Comments Basophils (test code = 1.0 See_Comment [Aut omated message] The Basophils) system which ge nerated this result tra nsmitted reference range : <=1.0. The reference r leo was not used to int erpret this result as normal/abnormal . [facility] CenterBpdgfwpLATSBCSOBE3620-30-73 08:17:00 Test Item Value Reference Range Interpretation Comments Neutrophils # (test code = Neutrophils 1.3 1.5-8.1 #) [place] 467951-08-11 08:17:00 Test Item Value Reference Range Interpretation Comments Lymphocytes # (test code = Lymphocytes 0.7 1.0-5.5 #) [place] 467951-08-11 08:17:00 Test Item Value Reference Range Interpretation Comments Monocytes # (test code 0.2 See_Comment [Aut omated message] The = Monocytes #) system which generated this result tra nsmitted reference range : <=0.8. The reference r leo was not used to int erpret this result as normal/abnormal . [place] 467951-08-11 08:17:00 Test Item Value Reference Range Interpretation Comments Eosinophils # (test code 0.1 See_Comment [A utomated message] The = Eosinophils #) system whic h generated this result tra nsmitted reference range : <=0.5. The reference r leo was not used to int erpret this result as normal/abnormal . [facility]2021-08-10 09:30:00 Test Item Value Reference Range Interpretation Comments Glucose Lvl (test code = Glucose Lvl) 61 70-99 [place] 909431-08-10 09:30:00 Test Item Value Reference Range Interpretation Comments BUN (test code = BUN) 13 7-22 [place] 909431-08-10 09:30:00 Test Item Value Reference Range Interpretation Comments Creatinine Lvl (test code = Creatinine 3.71 0.50-1.40 Lvl) [place] 909431-08-10 09:30:00 Test Item Value Reference Range Interpretation Comments Sodium Lvl (test code = Sodium Lvl) 136 135-145 [place] 909431-08-10 09:30:00 Test Item Value Reference Range Interpretation Comments Potassium Lvl (test code = Potassium 4.3 3.5-5.1 Lvl) [place] 909431-08-10 09:30:00 Test Item Value Reference Range Interpretation Comments Chloride Lvl (test code = Chloride Lvl) 103 95-109 [place] 909431-08-10 09:30:00 Test Item Value Reference Range Interpretation Comments CO2 (test code = CO2) 27 24-32 [place] 909431-08-10 09:30:00 Test Item Value Reference Range Interpretation Comments Calcium Lvl (test code = Calcium Lvl) 7.9 8.5-10.5 [place] 909431-08-10 09:30:00 Test Item Value Reference Range Interpretation Comments AGAP (test code = AGAP) 10.3 10.0-20.0 [place] 909431-08-10 09:30:00 Test Item Value Reference Range Interpretation Comments eGFR (test code = eGFR) 15 [place] 909431-08-10 09:30:00 Test Item Value Reference Range Interpretation Comments Magnesium Lvl (test code = Magnesium 2.3 1.8-2.4 Lvl) [place] 909431-08-10 09:30:00 Test Item Value Reference Range Interpretation Comments Phosphorus (test code = Phosphorus) 3.1 2.5-4.5 [facility] CenterCdzfjcpNWQUHSBKVR8445-36-96 09:30:00 Test Item Value Reference Range Interpretation Comments Segs (test code = Segs) 61.5 45.0-75.0 [facility] CenterQkgrpnpKOYRWQQBEW6430-25-38 09:30:00 Test Item Value Reference Range Interpretation Comments Lymphocytes (test code = Lymphocytes) 24.6 20.0-40.0 [place] 467951-08-10 09:30:00 Test Item Value Reference Range Interpretation Comments Monocytes (test code = Monocytes) 7.4 2.0-12.0 [facility] CenterDrcafvoBAYHUESHGU9831-07-39 09:30:00 Test Item Value Reference Range Interpretation Comments Eosinophils (test code = 5.5 See_Comment [A utomated message] The Eosinophils) system which ge nerated this result tra nsmitted reference range : <=4.0. The reference r leo was not used to int erpret this result as normal/abnormal . [facility] CenterVnovnjrYBWILVJZHW6202-39-05 09:30:00 Test Item Value Reference Range Interpretation Comments Basophils (test code = 1.0 See_Comment [Aut omated message] The Basophils) system which ge nerated this result tra nsmitted reference range : <=1.0. The reference r leo was not used to int erpret this result as normal/abnormal . [facility] CenterEkpmirrPLMLOFAHVU8016-77-53 09:30:00 Test Item Value Reference Range Interpretation Comments Neutrophils # (test code = Neutrophils 1.6 1.5-8.1 #) [facility] CenterTxdwckfJSJAOZWLRK3564-63-37 09:30:00 Test Item Value Reference Range Interpretation Comments Lymphocytes # (test code = Lymphocytes 0.6 1.0-5.5 #) [facility] CenterVpryiwkXCRFQSOGOS8453-49-13 09:30:00 Test Item Value Reference Range Interpretation Comments Monocytes # (test code 0.2 See_Comment [Aut omated message] The = Monocytes #) system which generated this result tra nsmitted reference range : <=0.8. The reference r leo was not used to int erpret this result as normal/abnormal . [facility] CenterXyvgtuwZNEGHQMNZO8465-24-24 09:30:00 Test Item Value Reference Range Interpretation Comments Eosinophils # (test code 0.1 See_Comment [A utomated message] The = Eosinophils #) system [employer] generated this result tra nsmitted reference range : <=0.5. The reference r leo was not used to int erpret this result as normal/abnormal . [facility] CenterOqiaqkcAFWRDJMVDG2222-77-08 09:30:00 Test Item Value Reference Range Interpretation [...] studies, if clinically indicated, are recommended. CPT: 58122 [facility] CenterQqfkappHGQQLHQVSM2250-38-60 09:30:00 Test Item Value Reference Range Interpretation Comments WBC (test code = WBC) 2.5 3.7-10.4 [place] [address]-08-10 09:30:00 Test Item Value Reference Range Interpretation Comments RBC (test code = RBC) 2.68 4.20-5.40 [place] 467951-08-10 09:30:00 Test Item Value Reference Range Interpretation Comments Hgb (test code = Hgb) 8.2 12.0-16.0 [place] [address]-08-10 09:30:00 Test Item Value Reference Range Interpretation Comments Hct (test code = Hct) 24.3 36.0-48.0 [place] [address]-08-10 09:30:00 Test Item Value Reference Range Interpretation Comments MCV (test code = MCV) 90.9 80.0-98.0 [place] [address]-08-10 09:30:00 Test Item Value Reference Range Interpretation Comments MCH (test code = MCH) 30.5 pg 27.0-31.0 [place] [address]-08-10 09:30:00 Test Item Value Reference Range Interpretation Comments MCHC (test code = MCHC) 33.6 32.0-36.0 [place] [address]-08-10 09:30:00 Test Item Value Reference Range Interpretation Comments RDW (test code = RDW) 19.4 11.5-14.5 [facility] CenterNydnjbkOMZVYDTOUZ4929-68-80 09:30:00 Test Item Value Reference Range Interpretation Comments Platelet (test code = Platelet) 70 133-450 [facility] CenterRuidtyaZBPZVABVZC0350-65-96 09:30:00 Test Item Value Reference Range Interpretation Comments MPV (test code = MPV) 10.7 7.4-10.4 [place] 909431-08-09 05:10:00 Test Item Value Reference Range Interpretation Comments Glucose Lvl (test code = Glucose Lvl) 69 70-99 [facility]2021-08-09 05:10:00 Test Item Value Reference Range Interpretation Comments BUN (test code = BUN) 29 7-22 [facility]2021-08-09 05:10:00 Test Item Value Reference Range Interpretation Comments Creatinine Lvl (test code = Creatinine 5.14 0.50-1.40 Lvl) [facility]2021-08-09 05:10:00 Test Item Value Reference Range Interpretation Comments Sodium Lvl (test code = Sodium Lvl) 134 135-145 [facility]2021-08-09 05:10:00 Test Item Value Reference Range Interpretation Comments Potassium Lvl (test code = Potassium 5.1 3.5-5.1 Lvl) [facility]2021-08-09 05:10:00 Test Item Value Reference Range Interpretation Comments Chloride Lvl (test code = Chloride Lvl) 98 95-109 [facility]2021-08-09 05:10:00 Test Item Value Reference Range Interpretation Comments CO2 (test code = CO2) 29 24-32 [place] 909431-08-09 05:10:00 Test Item Value Reference Range Interpretation Comments Calcium Lvl (test code = Calcium Lvl) 7.6 8.5-10.5 [facility]2021-08-09 05:10:00 Test Item Value Reference Range Interpretation Comments AGAP (test code = AGAP) 12.1 10.0-20.0 [place] 909431-08-09 05:10:00 Test Item Value Reference Range Interpretation Comments eGFR (test code = eGFR) 10 [place] 909431-08-09 05:10:00 Test Item Value Reference Range Interpretation Comments Magnesium Lvl (test code = Magnesium 2.3 1.8-2.4 Lvl) [facility]2021-08-09 05:10:00 Test Item Value Reference Range Interpretation Comments Phosphorus (test code = Phosphorus) 5.0 2.5-4.5 [facility] CenterRhoyyjuMFXNGFFRNL0243-95-74 05:10:00 Test Item Value Reference Range Interpretation Comments WBC (test code = WBC) 2.7 3.7-10.4 [facility] CenterSymctdtIUIPHXEALA5458-33-61 05:10:00 Test Item Value Reference Range Interpretation Comments RBC (test code = RBC) 2.80 4.20-5.40 [place] 467951-08-09 05:10:00 Test Item Value Reference Range Interpretation Comments Hgb (test code = Hgb) 8.5 12.0-16.0 [place] 467951-08-09 05:10:00 Test Item Value Reference Range Interpretation Comments Hct (test code = Hct) 25.7 36.0-48.0 [facility] CenterIvmidmuDOIUTZFJFH0272-47-11 05:10:00 Test Item Value Reference Range Interpretation Comments MCV (test code = MCV) 91.7 80.0-98.0 [place] 467951-08-09 05:10:00 Test Item Value Reference Range Interpretation Comments MCH (test code = MCH) 30.4 pg 27.0-31.0 [facility] CenterXuopuoxXOJGPCVJDX5525-61-66 05:10:00 Test Item Value Reference Range Interpretation Comments MCHC (test code = MCHC) 33.1 32.0-36.0 [facility] CenterYfqkesbRJQJQJVYYD9905-43-81 05:10:00 Test Item Value Reference Range Interpretation Comments RDW (test code = RDW) 19.2 11.5-14.5 [place] 467951-08-09 05:10:00 Test Item Value Reference Range Interpretation Comments Platelet (test code = Platelet) 72 133-450 [facility] CenterFawrwxnHMUGCYSWVH2938-72-61 05:10:00 Test Item Value Reference Range Interpretation Comments MPV (test code = MPV) 9.9 7.4-10.4 [place] 467951-08-09 05:10:00 Test Item Value Reference Range Interpretation Comments Segs (test code = Segs) 72.6 45.0-75.0 [facility] CenterLzfgdowJDFPUPVGYP5466-83-52 05:10:00 Test Item Value Reference Range Interpretation Comments Lymphocytes (test code = Lymphocytes) 15.9 20.0-40.0 [place] 467951-08-09 05:10:00 Test Item Value Reference Range Interpretation Comments Monocytes (test code = Monocytes) 7.3 2.0-12.0 [facility] CenterGxatyhcOGLUMWJAJJ0053-35-07 05:10:00 Test Item Value Reference Range Interpretation Comments Eosinophils (test code = 3.4 See_Comment [A utomated message] The Eosinophils) system which ge nerated this result tra nsmitted reference range : <=4.0. The reference r leo was not used to int erpret this result as normal/abnormal . [place] 467951-08-09 05:10:00 Test Item Value Reference Range Interpretation Comments Basophils (test code = 0.8 See_Comment [Aut omated message] The Basophils) system which ge nerated this result tra nsmitted reference range : <=1.0. The reference r leo was not used to int erpret this result as normal/abnormal . [facility] CenterLaxuarvGHVDVEUGNX7423-59-48 05:10:00 Test Item Value Reference Range Interpretation Comments Neutrophils # (test code = Neutrophils 1.9 1.5-8.1 #) [facility] CenterHpvxyowJOBEFQZKZZ4609-66-88 05:10:00 Test Item Value Reference Range Interpretation Comments Lymphocytes # (test code = Lymphocytes 0.4 1.0-5.5 #) [facility] CenterKbkabslKDMOHFCONI9631-90-76 05:10:00 Test Item Value Reference Range Interpretation Comments Monocytes # (test code 0.2 See_Comment [Aut omated message] The = Monocytes #) system which generated this result tra nsmitted reference range : <=0.8. The reference r leo was not used to int erpret this result as normal/abnormal . [facility] CenterPfjkbfyVQXEDUGBWC8328-81-58 05:10:00 Test Item Value Reference Range Interpretation Comments Eosinophils # (test code 0.1 See_Comment [A utomated message] The = Eosinophils #) system whic h generated this result tra nsmitted reference range : <=0.5. The reference r leo was not used to int erpret this result as normal/abnormal . [facility]2021-08-09 05:10:00 Test Item Value Reference Range Interpretation Comments Ca Ion WB (test code = Ca Ion WB) 1.10 1.05-1.25 [facility]2021-08-09 05:10:00 Test Item Value Reference Range Interpretation Comments Ca Norm WB (test code = Ca Norm WB) 1.06 1.05-1.25 [facility] Z[facility]ZVOICARK1031-80-16 18:36:00 Test Item Value Reference Range Interpretation Comments C difficile DNA (test Negative (01/26/21 1:36 code = C difficile DNA) PM) [facility]2021-08-08 07:33:00 Test Item Value Reference Range Interpretation Comments Ca Ion WB (test code = Ca Ion WB) 1.12 1.05-1.25 [facility]2021-08-08 07:33:00 Test Item Value Reference Range Interpretation Comments Ca Norm WB (test code = Ca Norm WB) 1.07 1.05-1.25 [facility]2021-08-08 07:30:00 Test Item Value Reference Range Interpretation Comments Glucose Lvl (test code = Glucose Lvl) 65 70-99 [facility]2021-08-08 07:30:00 Test Item Value Reference Range Interpretation Comments BUN (test code = BUN) 21 7-22 [facility]2021-08-08 07:30:00 Test Item Value Reference Range Interpretation Comments Creatinine Lvl (test code = Creatinine 4.18 0.50-1.40 Lvl) [facility]2021-08-08 07:30:00 Test Item Value Reference Range Interpretation Comments Sodium Lvl (test code = Sodium Lvl) 136 135-145 [facility]2021-08-08 07:30:00 Test Item Value Reference Range Interpretation Comments Potassium Lvl (test code = Potassium 4.5 3.5-5.1 Lvl) [facility]2021-08-08 07:30:00 Test Item Value Reference Range Interpretation Comments Chloride Lvl (test code = Chloride Lvl) 99 95-109 [place] 909431-08-08 07:30:00 Test Item Value Reference Range Interpretation Comments CO2 (test code = CO2) 31 24-32 [place] 909431-08-08 07:30:00 Test Item Value Reference Range Interpretation Comments AGAP (test code = AGAP) 10.5 10.0-20.0 [place] 909431-08-08 07:30:00 Test Item Value Reference Range Interpretation Comments Calcium Lvl (test code = Calcium Lvl) 7.9 8.5-10.5 [place] 909431-08-08 07:30:00 Test Item Value Reference Range Interpretation Comments eGFR (test code = eGFR) 13 [place] 909431-08-08 07:30:00 Test Item Value Reference Range Interpretation Comments Magnesium Lvl (test code = Magnesium 2.2 1.8-2.4 Lvl) [place] 909431-08-08 07:30:00 Test Item Value Reference Range Interpretation Comments Phosphorus (test code = Phosphorus) 4.4 2.5-4.5 [place] 467951-08-08 07:30:00 Test Item Value Reference Range Interpretation Comments WBC (test code = WBC) 2.3 3.7-10.4 [place] 467951-08-08 07:30:00 Test Item Value Reference Range Interpretation Comments RBC (test code = RBC) 2.88 4.20-5.40 [place] 467951-08-08 07:30:00 Test Item Value Reference Range Interpretation Comments Hgb (test code = Hgb) 8.6 12.0-16.0 [place] 467951-08-08 07:30:00 Test Item Value Reference Range Interpretation Comments Hct (test code = Hct) 26.6 36.0-48.0 [place] 467951-08-08 07:30:00 Test Item Value Reference Range Interpretation Comments MCV (test code = MCV) 92.2 80.0-98.0 [place] 26719-08-08 07:30:00 Test Item Value Reference Range Interpretation Comments MCH (test code = MCH) 29.8 pg 27.0-31.0 [place] 467951-08-08 07:30:00 Test Item Value Reference Range Interpretation Comments MCHC (test code = MCHC) 32.4 32.0-36.0 [place] 467951-08-08 07:30:00 Test Item Value Reference Range Interpretation Comments RDW (test code = RDW) 19.7 11.5-14.5 [place] 467951-08-08 07:30:00 Test Item Value Reference Range Interpretation Comments Platelet (test code = Platelet) 83 133-450 [facility]ZteslfgXNZUFDHGTM4963-04-69 07:30:00 Test Item Value Reference Range Interpretation Comments MPV (test code = MPV) 10.2 7.4-10.4 [place] 467951-08-08 07:30:00 Test Item Value Reference Range Interpretation Comments Segs (test code = Segs) 64.0 45.0-75.0 [place] 467951-08-08 07:30:00 Test Item Value Reference Range Interpretation Comments Lymphocytes (test code = Lymphocytes) 24.1 20.0-40.0 [place] 467951-08-08 07:30:00 Test Item Value Reference Range Interpretation Comments Monocytes (test code = Monocytes) 7.0 2.0-12.0 [facility] CenterVoricsxEERMVCFWKA9152-41-59 07:30:00 Test Item Value Reference Range Interpretation Comments Eosinophils (test code = 3.7 See_Comment [A utomated message] The Eosinophils) system which ge nerated this result tra nsmitted reference range : <=4.0. The reference r leo was not used to int erpret this result as normal/abnormal . [facility] CenterUhvdgkyWNSFGJYXFO1751-47-54 07:30:00 Test Item Value Reference Range Interpretation Comments Basophils (test code = 1.2 See_Comment [Aut omated message] The Basophils) system which ge nerated this result tra nsmitted reference range : <=1.0. The reference r leo was not used to int erpret this result as normal/abnormal . [facility] CenterQfffulcVUGUQJYKAD0869-72-24 07:30:00 Test Item Value Reference Range Interpretation Comments Neutrophils # (test code = Neutrophils 1.5 1.5-8.1 #) [facility] CenterYsntjfdPTCKKYOQGX6876-26-34 07:30:00 Test Item Value Reference Range Interpretation Comments Lymphocytes # (test code = Lymphocytes 0.6 1.0-5.5 #) [place] 467951-08-08 07:30:00 Test Item Value Reference Range Interpretation Comments Monocytes # (test code 0.2 See_Comment [Aut omated message] The = Monocytes #) system which generated this result tra nsmitted reference range : <=0.8. The reference r leo was not used to int erpret this result as normal/abnormal . [facility] CenterCwaiwyfMCYEQDPZWV2529-42-69 07:30:00 Test Item Value Reference Range Interpretation Comments Eosinophils # (test code 0.1 See_Comment [A utomated message] The = Eosinophils #) system whic h generated this result tra nsmitted reference range : <=0.5. The reference r leo was not used to int erpret this result as normal/abnormal . [place] 909431-08-07 09:32:00 Test Item Value Reference Range Interpretation Comments Glucose Lvl (test code = Glucose Lvl) 59 70-99 [place] 909431-08-07 09:32:00 Test Item Value Reference Range Interpretation Comments BUN (test code = BUN) 11 7-22 [place] 909431-08-07 09:32:00 Test Item Value Reference Range Interpretation Comments Creatinine Lvl (test code = Creatinine 2.75 0.50-1.40 Lvl) [place] 909431-08-07 09:32:00 Test Item Value Reference Range Interpretation Comments Sodium Lvl (test code = Sodium Lvl) 138 135-145 [place] 909431-08-07 09:32:00 Test Item Value Reference Range Interpretation Comments Potassium Lvl (test code = Potassium 4.1 3.5-5.1 Lvl) [place] 909431-08-07 09:32:00 Test Item Value Reference Range Interpretation Comments Chloride Lvl (test code = Chloride Lvl) 104 95-109 [place] 909431-08-07 09:32:00 Test Item Value Reference Range Interpretation Comments CO2 (test code = CO2) 29 24-32 [place] 909431-08-07 09:32:00 Test Item Value Reference Range Interpretation Comments Calcium Lvl (test code = Calcium Lvl) 8.3 8.5-10.5 [place] 909431-08-07 09:32:00 Test Item Value Reference Range Interpretation Comments AGAP (test code = AGAP) 9.1 10.0-20.0 [facility]2021-08-07 09:32:00 Test Item Value Reference Range Interpretation Comments eGFR (test code = eGFR) 21 [facility]2021-08-07 09:32:00 Test Item Value Reference Range Interpretation Comments Magnesium Lvl (test code = Magnesium 2.2 1.8-2.4 Lvl) [facility]2021-08-07 09:32:00 Test Item Value Reference Range Interpretation Comments Phosphorus (test code = Phosphorus) 3.9 2.5-4.5 [place] 467951-08-07 09:32:00 Test Item Value Reference Range Interpretation Comments WBC (test code = WBC) 2.3 3.7-10.4 [place] 467951-08-07 09:32:00 Test Item Value Reference Range Interpretation Comments RBC (test code = RBC) 2.78 4.20-5.40 [place] 467951-08-07 09:32:00 Test Item Value Reference Range Interpretation Comments Hgb (test code = Hgb) 8.4 12.0-16.0 [place] 467951-08-07 09:32:00 Test Item Value Reference Range Interpretation Comments Hct (test code = Hct) 25.2 36.0-48.0 [place] 467951-08-07 09:32:00 Test Item Value Reference Range Interpretation Comments MCV (test code = MCV) 90.5 80.0-98.0 [place] 467951-08-07 09:32:00 Test Item Value Reference Range Interpretation Comments MCH (test code = MCH) 30.4 pg 27.0-31.0 [place] 467951-08-07 09:32:00 Test Item Value Reference Range Interpretation Comments MCHC (test code = MCHC) 33.5 32.0-36.0 [place] 467951-08-07 09:32:00 Test Item Value Reference Range Interpretation Comments RDW (test code = RDW) 19.0 11.5-14.5 [place] 467951-08-07 09:32:00 Test Item Value Reference Range Interpretation Comments Platelet (test code = Platelet) 87 133-450 [facility] CenterIgpxerfUDBFUVWPLY4517-75-67 09:32:00 Test Item Value Reference Range Interpretation Comments MPV (test code = MPV) 10.0 7.4-10.4 [facility] YOYUYFA3445-05-65 05:33:00 Test Item Value Reference Range Interpretation Comments ABO/Rh (test code = ABO/Rh) B POS [facility] [id number] 05:33:00 Test Item Value Reference Range Interpretation Comments Antibody Scrn (test Negative (01/24/21 12:33 code = Antibody Scrn) AM) [facility] CenterLmfwezuTNPJZIZGDQ0099-65-55 05:33:00 Test Item Value Reference Range Interpretation Comments Segs (test code = Segs) 60.2 45.0-75.0 [facility] CenterZdwxvikEHPAJTGVJO8282-50-32 05:33:00 Test Item Value Reference Range Interpretation Comments Lymphocytes (test code = Lymphocytes) 28.6 20.0-40.0 [facility] CenterHevbkuqFUSJYZNSVG6144-80-59 05:33:00 Test Item Value Reference Range Interpretation Comments Monocytes (test code = Monocytes) 5.8 2.0-12.0 [facility] CenterKzbyvnfXBNDBPNPND8834-80-88 05:33:00 Test Item Value Reference Range Interpretation Comments Eosinophils (test code = 4.2 See_Comment [A utomated message] The Eosinophils) system which ge nerated this result tra nsmitted reference range : <=4.0. The reference r leo was not used to int erpret this result as normal/abnormal . [facility] CenterVsxewbhSMEPOEDLGV8942-85-64 05:33:00 Test Item Value Reference Range Interpretation Comments Basophils (test code = 1.2 See_Comment [Aut omated message] The Basophils) system which ge nerated this result tra nsmitted reference range : <=1.0. The reference r leo was not used to int erpret this result as normal/abnormal . [facility] CenterRvczvqqTHUBVZYMIR4756-08-41 05:33:00 Test Item Value Reference Range Interpretation Comments Neutrophils # (test code = Neutrophils 2.2 1.5-8.1 #) [facility] CenterWgzgtwrFGWNQIZUQH4289-85-99 05:33:00 Test Item Value Reference Range Interpretation Comments Lymphocytes # (test code = Lymphocytes 1.1 1.0-5.5 #) [facility] CenterXxiqzdrUMVRTHFKXV7567-00-35 05:33:00 Test Item Value Reference Range Interpretation Comments Monocytes # (test code 0.2 See_Comment [Aut omated message] The = Monocytes #) system which generated this result tra nsmitted reference range : <=0.8. The reference r leo was not used to int erpret this result as normal/abnormal . [facility] CenterHatrnomMFHPZPYCWR6458-91-57 05:33:00 Test Item Value Reference Range Interpretation Comments Eosinophils # (test code 0.2 See_Comment [A utomated message] The = Eosinophils #) system whic h generated this result tra nsmitted reference range : <=0.5. The reference r leo was not used to int erpret this result as normal/abnormal . [facility] CenterVfwziquVGAIOLUMJP2608-50-57 05:53:00 Test Item Value Reference Range Interpretation Comments PT (test code = PT) 14.4 s 12.0-14.7 [facility] CenterYgrumwbDTQEFFWDZF5333-71-17 05:53:00 Test Item Value Reference Range Interpretation Comments INR (test code = INR) 1.13 1 0.85-1.17 [facility] CenterSeydoanTDFEIAJQQX0069-14-91 05:53:00 Test Item Value Reference Range Interpretation Comments Fibrinogen Lvl (test code = Fibrinogen 319 230-510 Lvl) [facility] CenterFyhlivxBMOPDOBVRH9621-99-31 05:53:00 Test Item Value Reference Range Interpretation Comments Thrombin Time (test code = Thrombin 15.9 s 15.0-21.2 Time) [facility] CenterSyeyxiuZQIVBICFUI1569-76-67 05:53:00 Test Item Value Reference Range Interpretation Comments PTT (test code = PTT) 47.0 s 22.9-35.8 [facility] CenterOohwicePPQKRATRMV9776-86-56 05:53:00 Test Item Value Reference Range Interpretation Comments D-Dimer (test code = D-Dimer) 0.91 [facility] CenterNjndktjDAWMREGSWD0930-39-72 05:53:00 Test Item Value Reference Range Interpretation Comments Basophils # (test code 0.1 See_Comment [Aut omated message] The = Basophils #) system which generated this result tra nsmitted reference range : <=0.2. The reference r leo was not used to int erpret this result as normal/abnormal . [facility]PARATHYROID [id number] 05:53:00 Test Item Value Reference Range Interpretation Comments Ca Ion WB (test code = Ca Ion WB) 1.24 1.05-1.25 [facility] CenternaeemPARATHYROID [id number] 05:53:00 Test Item Value Reference Range Interpretation Comments Ca Norm WB (test code = Ca Norm WB) 1.25 1.05-1.25 [facility] CenterNEHPCRITICAL ACCESS HOSPITALEBIET8783-87-48 10:09:00 Test Item Value Reference Range Interpretation Comments ALT (test code = ALT) 49 See_Comment [Auto mated message] The system which ge nerated this result transmit rohit reference range : <=65. The reference range was not used to interpr et this result as reji l/abnormal. [facility] CenterCraig Wireless [id number] 10:09:00 Test Item Value Reference Range Interpretation Comments Albumin Lvl (test code = Albumin Lvl) 2.8 3.5-5.0 [facility]2021-08-04 10:09:00 Test Item Value Reference Range Interpretation Comments Alk Phos (test code = Alk Phos) 41 39-136 [facility] CenterNEHPCRITICAL ACCESS HOSPITALFCEOE1300-50-49 10:09:00 Test Item Value Reference Range Interpretation Comments Bili Direct (test code 0.2 See_Comment [Aut omated message] The = Bili Direct) system which generated this result tra nsmitted reference range : <=0.3. The reference r leo was not used to int erpret this result as reji l/abnormal. [facility] CenterCraig Wireless [id number] 10:09:00 Test Item Value Reference Range Interpretation Comments Bili Total (test code = Bili Total) 0.6 0.2-1.3 [facility] CenterCraig Wireless [id number] 10:09:00 Test Item Value Reference Range Interpretation Comments Bili Indirect (test 0.4 See_Comment [Automa rohit message] The code = Bili Indirect) system which generated this result tra nsmitted reference range : <=1.0. The reference r leo was not used to int erpret this result as normal/abnormal . [facility] CenterCra[facility] Wireless [id number] 10:09:00 Test Item Value Reference Range Interpretation Comments Total Protein (test code = Total 5.6 6.4-8.4 Protein) [facility]2021-08-04 10:09:00 Test Item Value Reference Range Interpretation Comments AST (test code = AST) 33 See_Comment [Auto mated message] The system which ge nerated this result transmit rohit reference range : <=37. The reference range was not used to interpr et this result as reji l/abnormal. [facility] HospitalAvexxin [id number] 10:09:00 Test Item Value Reference Range Interpretation Comments Globulin (test code = Globulin) 2.8 2.7-4.2 [facility] HospitalAvexxin [id number] 10:09:00 Test Item Value Reference Range Interpretation Comments A/G Ratio (test code = A/G Ratio) 1.0 1 0.7-1.6 [facility] HospitalAvexxin [id number] 10:09:00 Test Item Value Reference Range Interpretation Comments Amylase Lvl (test code = Amylase Lvl) 19 25-115 [facility] HospitalAvexxin [id number] 10:09:00 Test Item Value Reference Range Interpretation Comments Lipase Lvl (test code = Lipase Lvl) no gt 73-393 [facility] HospitalTcarslqPQXZOFIEVH4646-13-67 10:09:00 Test Item Value Reference Range Interpretation Comments PTT (test code = PTT) 41.4 s 22.9-35.8 [facility] HospitalBwcvednQQYNUIEESN4532-72-57 10:09:00 Test Item Value Reference Range Interpretation Comments PT (test code = PT) 15.4 s 12.0-14.7 [facility] HospitalBezarxaLXFVWEFBCQ4950-79-35 10:09:00 Test Item Value Reference Range Interpretation Comments INR (test code = INR) 1.24 1 0.85-1.17 [facility] HospitalJiqkownZLACULDCXN1210-67-07 10:09:00 Test Item Value Reference Range Interpretation Comments Fibrinogen Lvl (test code = Fibrinogen 312 230-510 Lvl) [facility] CenterPiqxqpiOLIKGRJVPM7790-75-97 10:09:00 Test Item Value Reference Range Interpretation Comments Thrombin Time (test code = Thrombin 16.6 s 15.0-21.2 Time) [facility] CenterUkzjypmBJCCDHCZSE5266-68-30 10:09:00 Test Item Value Reference Range Interpretation Comments D-Dimer (test code = D-Dimer) 4.91 [facility] CenterIjrpmjwGIAJHRTXMK6838-23-27 10:09:00 Test Item Value Reference Range Interpretation Comments Basophils # (test code 0.1 See_Comment [Aut omated message] The = Basophils #) system which generated this result tra nsmitted reference range : <=0.2. The reference r leo was not used to int erpret this result as normal/abnormal . [facility] CXPMPCPFK2167-59-94 10:09:00 Test Item Value Reference Range Interpretation Comments Hgb A1C (test code = Hgb A1C) 5.6 [facility] HospitalCHEM [id number] 09:07:00 Test Item Value Reference Range Interpretation Comments Amylase Lvl (test code = Amylase Lvl) 4 25-115 [facility] HospitalXakllzaRYHCPWVCEY6834-98-53 09:07:00 Test Item Value Reference Range Interpretation Comments Thrombin Time (test code = Thrombin 18.0 s 15.0-21.2 Time) [facility] HospitalHfqucylDEOZLESGAH8104-79-44 09:07:00 Test Item Value Reference Range Interpretation Comments PT (test code = PT) 24.6 s 12.0-14.7 [facility] HospitalVpnmjymFDIJQPNXSH5243-28-69 09:07:00 Test Item Value Reference Range Interpretation Comments INR (test code = INR) 2.31 1 0.85-1.17 [facility] HospitalCjtwrioMYFAEHSAWU9851-53-95 09:07:00 Test Item Value Reference Range Interpretation Comments PTT (test code = PTT) 57.5 s 22.9-35.8 [facility] HospitalRzphnygHQMKXNBAFW0158-11-75 09:07:00 Test Item Value Reference Range Interpretation Comments Fibrinogen Lvl (test code = Fibrinogen 125 230-510 Lvl) [facility] HospitalYvbypdaKNXTOEBTVH9455-26-30 09:07:00 Test Item Value Reference Range Interpretation Comments D-Dimer (test code = D-Dimer) 2.28 [facility] HospitalBL[facility] [id number] 04:52:00 Test Item Value Reference Range Interpretation Comments RBC product (test code Product available = RBC product) (01/21/21 11:52 PM) [facility] HospitalCARDIAC [id number] 00:38:00 Test Item Value Reference Range Interpretation Comments Troponin-I (test code no gt See_Comment [Auto mated message] The = Troponin-I) system which g enerated this result transmit rohit reference range : <=0.40. The reference r leo was not used to interpr et this result as reji l/abnormal. [facility] HospitalThe Training [facility] (TTR) [id number] 17:47:00 Test Item Value Reference Range Interpretation Comments BNP (test code = BNP) 2324 [facility] CenterannCARDIAC [id number] 17:47:00 Test Item Value Reference Range Interpretation Comments Troponin-I (test code 0.02 See_Comment [Auto mated message] The = Troponin-I) system which g enerated this result transmit rohit reference range : <=0.40. The reference r leo was not used to interpr et this result as reji l/abnormal. [facility] HospitalTmiqpryJXYCPWLGNL7065-41-05 17:47:00 Test Item Value Reference Range Interpretation Comments Hep Bs Ag (test code Negative *NA*(01/21/21 = Hep Bs Ag) 12:47 PM) [facility] CenterCraig Wireless [id number] 17:43:00 Test Item Value Reference Range Interpretation Comments B/C Ratio (test code = B/C Ratio) 5 1 6-25 [facility] CenterCra[facility] [id number] 17:43:00 Test Item Value Reference Range Interpretation Comments ALT (test code = ALT) 66 See_Comment [Auto mated message] The system which ge nerated this result transmit rohit reference range : <=65. The reference range was not used to interpr et this result as reji l/abnormal. [facility] [employer] [id number] 17:43:00 Test Item Value Reference Range Interpretation Comments Albumin Lvl (test code = Albumin Lvl) 3.0 3.5-5.0 [facility] CenterCra[facility] [id number] 17:43:00 Test Item Value Reference Range Interpretation Comments Alk Phos (test code = Alk Phos) 40 39-136 [facility] CenterCra[facility] [id number] 17:43:00 Test Item Value Reference Range Interpretation Comments Bili Total (test code = Bili Total) 0.5 0.2-1.3 [facility] CenterCra[facility] [id number] 17:43:00 Test Item Value Reference Range Interpretation Comments Total Protein (test code = Total 5.7 6.4-8.4 Protein) [facility] CenterCra[facility] [id number] 17:43:00 Test Item Value Reference Range Interpretation Comments AST (test code = AST) 52 See_Comment [Auto mated message] The system which ge nerated this result transmit rohit reference range : <=37. The reference range was not used to interpr et this result as reji l/abnormal. [facility] [employer] [id number] 17:43:00 Test Item Value Reference Range Interpretation Comments Globulin (test code = Globulin) 2.7 2.7-4.2 [facility] CenterCra[facility] [id number] 17:43:00 Test Item Value Reference Range Interpretation Comments A/G Ratio (test code = A/G Ratio) 1.1 1 0.7-1.6 [facility] [employer] [id number] 17:43:00 Test Item Value Reference Range Interpretation Comments Lactic Acid Lvl (test code = Lactic 1.1 0.5-2.2 Acid Lvl) [facility] CenterPacketworx [id number] 16:20:00 Test Item Value Reference Range Interpretation Comments ABO/Rh (test code = ABO/Rh) B POS [facility] [employer] [id number] 16:20:00 Test Item Value Reference Range Interpretation Comments Antibody Scrn (test Negative (01/21/21 11:20 code = Antibody Scrn) AM) [facility] HospitalMgxelilHSUIUFAJQT0590-38-72 16:20:00 Test Item Value Reference Range Interpretation Comments Anisocyte (test code = 1+ *ABN*(01/21/21 Anisocyte) 11:20 AM) [facility] CenterAmple CommunicationsSCIONHEALTH LAB [id number] 15:35:00 Test Item Value Reference Range Interpretation Comments Lactase Lvl (test code = Lactase Lvl) 2.0 [facility] [id number] 15:35:00 Test Item Value Reference Range Interpretation Comments Sucrase Lvl (test code = Sucrase Lvl) 38.6 [facility] [id number] 15:35:00 Test Item Value Reference Range Interpretation Comments Maltase Lvl (test code = Maltase Lvl) 177.2 [facility] [id number] 15:35:00 Test Item Value Reference Range Interpretation Comments Palatinase Lvl (test code = Palatinase 13.8 Lvl) [facility] CenterHqwwmhjIIZMRFWROLWE5813-00-13 13:21:00 Test Item Value Reference Range Interpretation Comments Potassium WB (test code = Potassium WB) 5.1 3.5-5.1 [facility]QdbwxssVUFGVEZUADNWI8662-69-46 13:21:00 Test Item Value Reference Range Interpretation Comments S Preg (test code = S Negative 8*NA*(01/21/21 Preg) 8:21 AM) [facility] HospitalMvrcxlzAVZDZIJHIX0545-98-76 11:19:00 Test Item Value Reference Range Interpretation Comments Coronavirus (COVID-19) Not Detected (01/21/21 EMANUEL (test code = 6:19 AM) Coronavirus (COVID-19) EMANUEL) [facility]2020-08-12 16:39:05 Test Item Value Reference Range Interpretation Comments Glucose POC (test 183 mg/dL 70-115 H If you con candle molder machine your code = Glucose POC) patient critically ill, the Merlin-Accu Check Infrom II meter should not be used for Glucose determination. Draw a venous Glucose and send to the main Lab for analysis. Urine [id number] 11:32:13 Test Item Value Reference Range Interpretation [...] Escherichia coli C Urine Added by GL_SJM_UA_CUL_INDPOC [id number] 07:52:10 Test Item Value Reference Range Interpretation Comments Glucose POC (test 160 mg/dL 70-115 H If you con candle molder machine your code = Glucose POC) patient critically ill, the Merlin-Accu Check Infrom II meter should not be used for Glucose determination. Draw a venous Glucose and send to the main Lab for analysis. POC [id number] 19:32:05 Test Item Value Reference Range Interpretation Comments Glucose POC (test 184 mg/dL 70-115 H If you con candle molder machine your code = Glucose POC) patient critically ill, the Merlin-Accu Check Infrom II meter should not be used for Glucose determination. Draw a venous Glucose and send to the main Lab for analysis. POC [id number] 17:16:35 Test Item Value Reference Range Interpretation Comments Glucose POC (test 281 mg/dL 70-115 H Notify RN or MDIf you code = Glucose POC) consider your patient critically ill, the Merlin-Accu Chec k Infrom II meter should not be used for Glucos e determination. Draw a venous Glucose and send to the main Lab for analysis. POC [id number] 12:00:38 Test Item Value Reference Range Interpretation Comments Glucose POC (test 138 mg/dL 70-115 H Notify RN or MDIf you code = Glucose POC) consider your patient critically ill, the Merlin-Accu Chec k Infrom II meter should not be used for Glucos e determination. Draw a venous Glucose and send to the main Lab for analysis. POC [id number] 07:41:32 Test Item Value Reference Range Interpretation Comments Glucose POC (test 206 mg/dL 70-115 H Notify RN or MDIf you code = Glucose POC) consider your patient critically ill, the Merlin-Accu Chec k Infrom II meter should not be used for Glucos e determination. Draw a venous Glucose and send to the main Lab for analysis. Urinalysis [id number] 21:07:21 Test Item Value Reference Range Interpretation Comments UA WBC (test code = UA WBC) TNTC 0-5 A UA RBC (test code = UA RBC) 6-10 0-5 A UA Bacteria (test code = UA Bacteria) Profuse A UA Squam Epithelial (test code = UA 6-10 A Squam Epithelial) Urinalysis with Culture, if [id number] 20:35:14 Test Item Value Reference Range Interpretation [...] Micro Indicated Not Indicated A Ind?) POC [id number] 19:06:34 Test Item Value Reference Range Interpretation Comments Glucose POC (test 207 mg/dL 70-115 H If you con candle molder machine your code = Glucose POC) patient critically ill, the Merlin-Accu Check Infrom II meter should not be used for Glucose determination. Draw a venous Glucose and send to the main Lab for analysis. POC [id number] 17:12:03 Test Item Value Reference Range Interpretation Comments Glucose POC (test 173 mg/dL 70-115 H Notify RN or MDIf you code = Glucose POC) consider your patient critically ill, the Merlin-Accu Chec k Infrom II meter should not be used for Glucos e determination. Draw a venous Glucose and send to the main Lab for analysis. POC [id number] 11:58:01 Test Item Value Reference Range Interpretation Comments Glucose POC (test 289 mg/dL 70-115 H Notify RN or MDIf you code = Glucose POC) consider your patient critically ill, the Merlin-Accu Chec k Infrom II meter should not be used for Glucos e determination. Draw a venous Glucose and send to the main Lab for analysis. POC [id number] 08:19:37 Test Item Value Reference Range Interpretation Comments Glucose POC (test 201 mg/dL 70-115 H Notify RN or MDIf you code = Glucose POC) consider your patient critically ill, the Merlin-Accu Chec k Infrom II meter should not be used for Glucos e determination. Draw a venous Glucose and send to the main Lab for analysis. POC [id number] 20:37:35 Test Item Value Reference Range Interpretation Comments Glucose POC (test 272 mg/dL 70-115 H If you con candle molder machine your code = Glucose POC) patient critically ill, the Merlin-Accu Check Infrom II meter should not be used for Glucose determination. Draw a venous Glucose and send to the main Lab for analysis. POC [id number] 17:23:05 Test Item Value Reference Range Interpretation Comments Glucose POC (test 229 mg/dL 70-115 H If you con candle molder machine your code = Glucose POC) patient critically ill, the Merlin-Accu Check Infrom II meter should not be used for Glucose determination. Draw a venous Glucose and send to the main Lab for analysis. POC [id number] 12:01:01 Test Item Value Reference Range Interpretation Comments Glucose POC (test 155 mg/dL 70-115 H If you con candle molder machine your code = Glucose POC) patient critically ill, the Merlin-Accu Check Infrom II meter should not be used for Glucose determination. Draw a venous Glucose and send to the main Lab for analysis. POC [id number] 08:07:32 Test Item Value Reference Range Interpretation Comments Glucose POC (test 248 mg/dL 70-115 H If you con candle molder machine your code = Glucose POC) patient critically ill, the Merlin-Accu Check Infrom II meter should not be used for Glucose determination. Draw a venous Glucose and send to the main Lab for analysis. IG [id number] 06:50:39 Test Item Value Reference Range Interpretation Comments IG (test code = IG) 0.7 % 0.0-5.0 IG Abs (test code = IG Abs) 0 x10 N Complete Blood Count with [id number] 06:50:38 Test Item Value Reference Range Interpretation [...] code = IPF) 0 % N Automated [id number] 06:50:38 Test Item Value Reference Range Interpretation Comments Neutro Auto (test code = Neutro 50.3 % 36.0-70.0 Auto) Lymph Auto (test code = Lymph Auto) 38.6 % 12.0-44.0 Calvert Auto (test code = Calvert Auto) 7.3 % 0.0-11.0 Eos, Auto (test code = Eos, Auto) 2.4 % 0.0-7.0 Basophil Auto (test code = Basophil 0.7 % 0.0-2.0 Auto) Neutro Absolute (test code = Neutro 3.0 x10 1.6-7.4 Absolute) Lymph Absolute (test code = Lymph 2.28 x10 .50-4.60 Absolute) Calvert Absolute (test code = Calvert .43 x10 .00-1.20 Absolute) Eos Absolute (test code = Eos 0.14 x10 0.00-0.74 Absolute) Baso Absolute (test code = Baso 0.04 x10 0.00-0.21 Absolute) Basic Metabolic [id number] 05:38:20 Test Item Value Reference Range Interpretation [...] = Lipemia) 0 mg/dL 8-11 Basic Metabolic [id number] 05:38:20 Test Item Value Reference Range Interpretation [...] = 0 mg/dL 8-11 Lipemia) Basic Metabolic [id number] 05:38:20 Test Item Value Reference Range Interpretation [...] e have not been validated by [facility] MDRD study and should be interpreted [...] e have not been validated by [facility] MDRD study and should be interpreted [...] code = 0 mg/dL 8-11 Lipemia) POC [id number] 20:28:33 Test Item Value Reference Range Interpretation Comments Glucose POC (test 169 mg/dL 70-115 H If you con candle molder machine your code = Glucose POC) patient critically ill, the Merlin-Accu Check Infrom II meter should not be used for Glucose determination. Draw a venous Glucose and send to the main Lab for analysis. POC [id number] 16:39:30 Test Item Value Reference Range Interpretation Comments Glucose POC (test 103 mg/dL 70-115 If you con candle molder machine your code = Glucose POC) patient critically ill, the Merlin-Accu Check Infrom II meter should not be used for Glucose determination. Draw a venous Glucose and send to the main Lab for analysis. RPR [id number] 12:08:56 Test Item Value Reference Range Interpretation Comments RPR Qual (test code = RPR Qual) Non-Reactive Non-Reactive Reactive Control (test code = Reactive Reactive Control) Weak Reactive Control (test Weak Reactive code = Weak Reactive Control) Non-Reactive Control (test code Non-Reactive = Non-Reactive Control) Lot # (test code = Lot #) [id number] N Expiration Dt (test code = 03-20-2021 N Expiration Dt) POC [id number] 11:52:31 Test Item Value Reference Range Interpretation Comments Glucose POC (test 250 mg/dL 70-115 H If you con candle molder machine your code = Glucose POC) patient critically ill, the Merlin-Accu Check Infrom II meter should not be used for Glucose determination. Draw a venous Glucose and send to the main Lab for analysis. POC [id number] 07:55:29 Test Item Value Reference Range Interpretation Comments Glucose POC (test 205 mg/dL 70-115 H If you con candle molder machine your code = Glucose POC) patient critically ill, the Merlin-Accu Check Infrom II meter should not be used for Glucose determination. Draw a venous Glucose and send to the main Lab for analysis. Lipid [id number] 05:46:04 Test Item Value Reference Range Interpretation [...] LDL/HDL Ratio=L DL Calc/HDL Chol Thyroid Stimulating [id number] 05:46:04 Test Item Value Reference Range Interpretation Comments TSH (test code = TSH) 3.274 mcIU/mL 0.550-4.780 Hemoglobin [id number] 05:41:08 Test Item Value Reference Range Interpretation Comments Hemoglobin A1c (test code 7.6 % 4.0-5.8 H Di abetic >=6.5 = Hemoglobin A1c) %Prediabet es 5.7-6.4 %Normal <5.7 % Hepatitis B Surface [id number] 21:19:36 Test Item Value Reference Range Interpretation Comments Hep Bs Ag (test code = Hep Bs Non-Reactive Non-Reactive Ag) Novel Coronavirus SARS-CoV-2, [id number] 11:16:16 Test Item Value Reference Range Interpretation [...] Emergency Use Authorization." Novel Coronavirus (COVID-19), EMANUEL [id number] 11:11:24TNPTest not sent and performed at [facility]Rapid was perfomed in Microbiology.Wrong covid test was ord ered.Urine DOA [id number] 00:17:49 Test Item Value Reference Range Interpretation [...] Propoxyphene Confirmation wi thin 7 days. Alcohol [id number] 00:17:29 Test Item Value Reference Range Interpretation Comments Ethanol Level 9.0 mg/dL N The pharmacolo gical (test code = response to blo od alcohol Ethanol Level) levels may va ry from individual to i ndividual. The fatal omkar ntration has been report ed to be >400 mg/dl. Comprehensive Metabolic [id number] 00:17:28 Test Item Value Reference Range Interpretation [...] = Lipemia) 0 g/dL 1-2 Comprehensive Metabolic [id number] 00:17:28 Test Item Value Reference Range Interpretation [...] = 0 g/dL 1-2 Lipemia) Comprehensive Metabolic [id number] 00:17:28 Test Item Value Reference Range Interpretation [...] g/dL 1-2 Lipemia) Complete Blood Count with [id number] 23:26:28 Test Item Value Reference Range Interpretation [...] code = IPF) 0 % N Automated [id number] 23:26:28 Test Item Value Reference Range Interpretation Comments Neutro Auto (test code = Neutro 67.1 % 36.0-70.0 Auto) Lymph Auto (test code = Lymph Auto) 23.3 % 12.0-44.0 Calvert Auto (test code = Calvert Auto) 5.8 % 0.0-11.0 Eos, Auto (test code = Eos, Auto) 2.3 % 0.0-7.0 Basophil Auto (test code = Basophil 0.8 % 0.0-2.0 Auto) Neutro Absolute (test code = Neutro 6.0 x10 1.6-7.4 Absolute) Lymph Absolute (test code = Lymph 2.10 x10 .50-4.60 Absolute) Calvert Absolute (test code = Calvert .52 x10 .00-1.20 Absolute) Eos Absolute (test code = Eos 0.21 x10 0.00-0.74 Absolute) Baso Absolute (test code = Baso 0.07 x10 0.00-0.21 Absolute) IG [id number] 23:26:28 Test Item Value Reference Range Interpretation Comments IG (test code = IG) 0.7 % 0.0-5.0 IG Abs (test code = IG Abs) 0 x10 N HERPES VIRUS ANTIBODY, [id number] 21:46:00 Test Item Value Reference Range Interpretation Comments HERPES VIRUS IGM (BEAKER) Negative SE E ATTACHMENT (test code = 1808) BLOOD [id number] 06:00:00 Test Item Value Reference Range Interpretation Comments CULTURE (BEAKER) (test No growth in 5 days code = 1095) BLOOD [id number] 06:00:00 Test Item Value Reference Range Interpretation Comments CULTURE (BEAKER) (test No growth in 5 days code = 1095) POCT-GLUCOSE [id number] 12:11:00 Test Item Value Reference Range Interpretation Comments POC-GLUCOSE METER 154 mg/dL 70-[address] [facility] (BEAKER) (test code = [place] 1538) [address] POCT-GLUCOSE [id number] 07:53:00 Test Item Value Reference Range Interpretation Comments POC-GLUCOSE METER 87 mg/dL 70-[address] [facility] (BEAKER) (test code = [place] [address] 1538) POCT-GLUCOSE [id number] 06:49:00 Test Item Value Reference Range Interpretation Comments POC-GLUCOSE METER 79 mg/dL 70-[address] [facility] (BEAKER) (test code = [place] [facility] [address] 1538) COMPREHENSIVE METABOLIC [id number] 06:15:00 Test Item Value Reference Range Interpretation [...] GFR I S NOT APPLICABLE FOR DIALYSIS PATIANGELICA TS. [id number] 06:11:00 Test Item Value Reference Range Interpretation Comments MAGNESIUM (BEAKER) (test code = 2.1 mg/dL 1.6-2.6 627) HEPATIC FUNCTION [id number] 06:11:00 Test Item Value Reference Range Interpretation [...] code = 513 U/L 6-55 H 347) [id number] 05:30:00 Test Item Value Reference Range Interpretation Comments FIBRINOGEN LEVEL (BEAKER) (test 368 mg/dl 225-434 code = 658) [id number] 05:30:00 Test Item Value Reference Range Interpretation Comments PARTIAL THROMBOPLASTIN TIME 42.2 seconds 22.5-36.0 H (BEAKER) (test code = 760) PROTHROMBIN [id number] 05:29:00 Test Item Value Reference Range Interpretation Comments PROTIME (BEAKER) (test code = 14.8 seconds 11.7-14.7 H 759) INR (BEAKER) (test code = 370) 1.2 <=5.9 RECOMMENDED COUMADIN/WARFARIN INR THERAPY RANGESSTANDARD DOSE: 2.0 - 3.0 Includes: PROPHYLAXIS forvenous thrombosis, systemic embolization; TREATMENT for venous thrombosis and/or pulmonary embolus.HIGH RISK: Target INR is 2.5-3.5 for patients with mechanical heart valves.POCT-GLUCOSE [id number] 21:09:00 Test Item Value Reference Range Interpretation Comments POC-GLUCOSE METER 178 mg/dL 70-[address] [facility] ([facility]) (test code = [place] 1538) [address] POCT-GLUCOSE [id number] 17:18:00 Test Item Value Reference Range Interpretation Comments POC-GLUCOSE METER 178 mg/dL 70-[address] [facility] ([facility]) (test code = [place] [facility] 1538) [address] POCT-GLUCOSE [id number] 13:48:00 Test Item Value Reference Range Interpretation Comments POC-GLUCOSE METER 150 mg/dL 70-110 H TESTED AT [place] [address] ([facility]) (test code = [facility] 1538) [address] FACTOR 5 ACTIVITY (BLEEDING RISK)2017-01-06 10:04:00 Test Item Value Reference Range Interpretation Comments FACTOR V ACTIVITY ([facility]) (test code 90.0 % 60.0-150.0 = 665) Effective 10/24/2013: Reference Range Change-Adult onlyNew: 60.0-150.0 Previous: 50.0-150.0CYTOMEGALOVIRUS ANTIBODY, [id number] 09:42:00 Test Item Value Reference Range Interpretation Comments CYTOMEGALOVIRUS IGM ANTIBODY Negative ([facility]) (test code = 816) HERPES VIRUS ANTIBODY, [id number] 08:59:00 Test Item Value Reference Range Interpretation Comments 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[facility]) (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 G 1807) CYTOMEGALOVIRUS ANTIBODY, [id number] 08:59:00 Test Item Value Reference Range Interpretation Comments CYTOMEGALOVIRUS IGG ANTIBODY Positive ([facility]) (test code = 790) EBV-VCA ANTIBODY, [id number] 08:59:00 Test Item Value Reference Range Interpretation Comments JASE-WALL VCA IGG ([facility]) (test Positive code = 983) EBV-VCA ANTIBODY, [id number] 08:59:00 Test Item Value Reference Range Interpretation Comments JASE-WALL VCA IGM ([facility]) (test Negative code = 984) POCT-GLUCOSE [id number] 07:59:00 Test Item Value Reference Range Interpretation Comments POC-GLUCOSE METER 81 mg/dL 70-[address] [facility] ([facility]) (test code = [facility] Eduin [facility] [address] 1538) COMPREHENSIVE METABOLIC [id number] 06:23:00 Test Item Value Reference Range Interpretation [...] S NOT APPLICABLE FOR DIALYSIS PATIEN TS. [id number] 06:17:00 Test Item Value Reference Range Interpretation Comments MAGNESIUM (BEAKER) (test code = 1.8 mg/dL 1.6-2.6 627) HEPATIC FUNCTION [id number] 06:17:00 Test Item Value Reference Range Interpretation [...] code = 779 U/L 6-55 H 347) [id number] 06:00:00 Test Item Value Reference Range Interpretation Comments FIBRINOGEN LEVEL (BEAKER) (test 390 mg/dl 225-434 code = 658) [id number] 06:00:00 Test Item Value Reference Range Interpretation Comments PARTIAL THROMBOPLASTIN TIME 40.2 seconds 22.5-36.0 H (AKER) (test code = 760) PROTHROMBIN [id number] 05:59:00 Test Item Value Reference Range Interpretation Comments PROTIME ([facility]) (test code = 14.6 seconds 11.7-14.7 759) INR ([facility]) (test code = 370) 1.2 <=5.9 RECOMMENDED COUMADIN/WARFARIN INR THERAPY RANGESSTANDARD DOSE: 2.0 - 3.0 Includes: PROPHYLAXIS forvenous thrombosis, systemic embolization; TREATMENT for venous thrombosis and/or pulmonary embolus.HIGH RISK: Target INR is 2.5-3.5 for patients with mechanical heart valves.POCT-GLUCOSE [id number] 21:46:00 Test Item Value Reference Range Interpretation Comments POC-GLUCOSE METER 153 mg/dL 70-110 H TESTED AT [place] [address] ([facility]) (test code = [place] [facility] 1538) [address] POCT-GLUCOSE [id number] 18:47:00 Test Item Value Reference Range Interpretation Comments POC-GLUCOSE METER 181 mg/dL 70-110 H TESTED AT [place] [address] ([facility]) (test code = [place] [facility] 1538) [address] POCT-GLUCOSE [id number] 12:40:00 Test Item Value Reference Range Interpretation Comments POC-GLUCOSE METER 178 mg/dL 70-110 H TESTED AT [place] [address] ([facility]) (test code = [place] [facility] 1538) [address] POCT-GLUCOSE [id number] 07:51:00 Test Item Value Reference Range Interpretation Comments POC-GLUCOSE METER 166 mg/dL 70-[address] [facility] (BEAKER) (test code = [place] 1535) [address] COMPREHENSIVE METABOLIC [id number] 03:26:00 Test Item Value Reference Range Interpretation [...] S NOT APPLICABLE FOR DIALYSIS PATIEN TS. [id number] 03:22:00 Test Item Value Reference Range Interpretation Comments MAGNESIUM (BEAKER) (test code = 1.4 mg/dL 1.6-2.6 L 627) HEPATIC FUNCTION [id number] 03:22:00 Test Item Value Reference Range Interpretation [...] code = 1009 U/L 6-55 H 347) [id number] 03:12:00 Test Item Value Reference Range Interpretation Comments AMMONIA (BEAKER) (test code = 348) 29 mol/L 18-72 [id number] 03:10:00 Test Item Value Reference Range Interpretation Comments PARTIAL THROMBOPLASTIN TIME 42.3 seconds 22.5-36.0 H (BEAKER) (test code = 760) PROTHROMBIN [id number] 03:09:00 Test Item Value Reference Range Interpretation Comments PROTIME (BEAKER) (test code = 16.4 seconds 11.7-14.7 H 759) INR (BEAKER) (test code = 370) 1.3 <=5.9 RECOMMENDED COUMADIN/WARFARIN INR THERAPY RANGESSTANDARD DOSE: 2.0 - 3.0 Includes: PROPHYLAXIS forvenous thrombosis, systemic embolization; TREATMENT for venous thrombosis and/or pulmonary embolus.HIGH RISK: Target INR is 2.5-3.5 for patients with mechanical heart valves.[id number] 03:09:00 Test Item Value Reference Range Interpretation Comments FIBRINOGEN LEVEL (BEAKER) (test 413 mg/dl 225-434 code = 658) CBC W/PLT COUNT & AUTO [id number] 03:09:00 Test Item Value Reference Range Interpretation [...] L 0.00-0.20 (test code = 417) 0.00POCT-GLUCOSE [id number] 22:33:00 Test Item Value Reference Range Interpretation Comments POC-GLUCOSE METER 230 mg/dL 70-[address] [facility] (BEAKER) (test code = [place] 1538) [address] POCT-GLUCOSE [id number] 18:17:00 Test Item Value Reference Range Interpretation Comments POC-GLUCOSE METER 222 mg/dL 70-[address] [facility] (BEAKER) (test code = [place] 1538) [address] COMPREHENSIVE METABOLIC [id number] 16:59:00 Test Item Value Reference Range Interpretation [...] PATIEN TS. PERIPHERAL BLOOD SMEAR - PATHOLOGIST [id number] 15:30:00 Test Item Value Reference Range Interpretation Comments RBC MORPHOLOGY Polychromasia (BEAKER) (test code = 2846) RBC MORPHOLOGY Anisocytosis (BEAKER) (test code = 93890) PERIPHERAL SMR REVIEW Cell counts confirmed (MADIE) (test code = 2640) [id number] Josefina Lara M.D. ([facility]) (test code = (electronic signature) 5195) PROTHROMBIN [id number] 15:12:00 Test Item Value Reference Range Interpretation Comments PROTIME (MADIE) (test code = 16.6 seconds 11.7-14.7 H 759) INR ([facility]) (test code = 370) 1.4 <=5.9 RECOMMENDED COUMADIN/WARFARIN INR THERAPY RANGESSTANDARD DOSE: 2.0 - 3.0 Includes: PROPHYLAXIS forvenous thrombosis, systemic embolization; TREATMENT for venous thrombosis and/or pulmonary embolus.HIGH RISK: Target INR is 2.5-3.5 for patients with mechanical heart valves.ANTI-NUCLEAR ANTIBODY (IVETTE)2017-01-04 14:32:00 Test Item Value Reference Range Interpretation Comments ANTI-NUCLEAR ANTIBODY (IVETTE) ([facility]) Negative Negative (test code = 418) POCT-GLUCOSE [id number] 12:47:00 Test Item Value Reference Range Interpretation Comments POC-GLUCOSE METER 212 mg/dL 70-[address] [facility] ([facility]) (test code = [facility] 1538) [address] [id number] 12:34:00 Test Item Value Reference Range Interpretation Comments RPR SCREEN (MADIE) (test code = Nonreactive Nonreactive 420) CLOSTRIDIUM DIFFICILE TOXIN [id number] 10:12:00 Test Item Value Reference Range Interpretation Comments CLOSTRIDIUM DIFFICILE TOXIN, PCR Not Detected Not Detected ([facility] (test code = 1525) This qualitative [...] Reference Range Change-Adult onlyNew: 60.0-150.0 Previous: 50.0-150.0POCT-GLUCOSE [id number] 06:40:00 Test Item Value Reference Range Interpretation Comments POC-GLUCOSE METER 167 mg/dL 70-[address] [facility] (AKER) (test code = [place] 1538) [address] COMPREHENSIVE METABOLIC [id number] 04:08:00 Test Item Value Reference Range Interpretation [...] ESTIM ATED GFR. Specimen slightly ictericHEPATIC FUNCTION [id number] 04:06:00 Test Item Value Reference Range Interpretation [...] 1091 U/L 6-55 H 347) Specimen slightly [id number] 04:01:00 Test Item Value Reference Range Interpretation Comments FIBRINOGEN LEVEL (BEAKER) (test 379 mg/dl 225-434 code = 658) [id number] 04:01:00 Test Item Value Reference Range Interpretation Comments PARTIAL THROMBOPLASTIN TIME 40.7 seconds 22.5-36.0 H (BEAKER) (test code = 760) PROTHROMBIN [id number] 04:00:00 Test Item Value Reference Range Interpretation [...] L 0.00-0.20 (test code = 417) 0.00POCT-GLUCOSE [id number] 00:19:00 Test Item Value Reference Range Interpretation Comments POC-GLUCOSE METER 159 mg/dL 70-[address] [facility] ([facility] (test code = [facility] 1538) [address] POCT-GLUCOSE [id number] 18:56:00 Test Item Value Reference Range Interpretation Comments POC-GLUCOSE METER 192 mg/dL 70-110 H TESTED AT [place] [address] ([facility]) (test code = [facility] 1538) [address] COMPREHENSIVE METABOLIC [id number] 16:55:00 Test Item Value Reference Range Interpretation [...] CALCULATE ESTIM ATED GFR. Specimen slightly ictericPROTHROMBIN [id number] 16:37:00 Test Item Value Reference Range Interpretation Comments PROTIME (BEAKER) (test code = 20.9 seconds 11.7-14.7 H 759) INR (BEAKER) (test code = 370) 1.8 <=5.9 RECOMMENDED COUMADIN/WARFARIN INR THERAPY RANGESSTANDARD DOSE: 2.0 - 3.0 Includes: PROPHYLAXIS forvenous thrombosis, systemic embolization; TREATMENT for venous thrombosis and/or pulmonary embolus.HIGH RISK: Target INR is 2.5-3.5 for patients with mechanical heart valves.HEPATITIS B SURFACE [id number] 14:05:00 Test Item Value Reference Range Interpretation Comments HEPATITIS B SURFACE ANTIBODY < mIU/mL <8.0 (BEAKER) (test code = 647) HEPATITIS B CORE ANTIBODY, [id number] 13:43:00 Test Item Value Reference Range Interpretation Comments HEPATITIS B CORE TOTAL ANTIBODY Nonreactive Nonreactive (BEAKER) (test code = 497) BLOOD GAS, [id number] 13:35:00 Test Item Value Reference Range Interpretation [...] code = 1819) 28.0 % URINALYSIS W/ [id number] 13:16:00 Test Item Value Reference Range Interpretation [...] 1584) SOURCE(BEAKER) (test code = Urine, [place] 9645) VITAMIN D, [id number] 13:14:00 Test Item Value Reference Range Interpretation Comments VITAMIN D 25-OH (BEAKER) (test code = < ng/mL 13.0-47.8 L 2764) ALPHA FETOPROTEIN (AFP), TUMOR [id number] 13:06:00 Test Item Value Reference Range Interpretation Comments ALPHA-FETOPROTEIN (BEAKER) (test code < ng/mL <10.0 = 1094) Effective 05/08/2014: Reference Range ChangeNew: <10.0 Previous: 0.0-8.0 HEMOGLOBIN [id number] 13:05:00 Test Item Value Reference Range Interpretation Comments HEMOGLOBIN A1C (BEAKER) (test code = 7.6 % 4.3-6.1 H 368) CARCINOEMBRYONIC ANTIGEN (CEA)2017-01-03 12:59:00 Test Item Value Reference Range Interpretation Comments CARCINOEMBRYONIC ANTIGEN (BEAKER) 2.0 ng/mL 0.0-5.0 (test code = 685) [id number] 12:59:00 Test Item Value Reference Range Interpretation Comments FERRITIN (BEAKER) (test code = 1841 ng/mL 5-275 H 361) Effective 05/08/2014: Reference Range ChangeNew: Male 5-275 Previous: Male 22-322 Female 5-275 Female [id number] 12:58:00 Test Item Value Reference Range Interpretation Comments T4 TOTAL (BEAKER) (test code = 895) 4.5 ug/dL 4.9-11.7 L [id number] 12:58:00 Test Item Value Reference Range Interpretation Comments THYROID STIMULATING HORMONE 1.79 uIU/mL 0.35-4.94 (BEAKER) (test code = 772) [id number] 12:58:00 Test Item Value Reference Range Interpretation Comments T3 TOTAL (BEAKER) (test code = 656) 34 ng/dL 48-159 L Effective 05/08/2014: Reference Range ChangeNew: 48-159 Previous: 60-181 CALCIUM, [id number] 12:47:00 Test Item Value Reference Range Interpretation Comments CALCIUM IONIZED (BEAKER) (test 1.05 mmol/L 1.12-1.27 L code = 698) PH, BLOOD (BEAKER) (test code = 7.43 1810) [id number] 12:42:00 Test Item Value Reference Range Interpretation [...] % 20-55 (test code = 2590) URIC [id number] 12:40:00 Test Item Value Reference Range Interpretation Comments URIC ACID (BEAKER) (test code = 16.0 mg/dL 2.6-7.2 H 773) Specimen slightly ictericLIPID [id number] 12:40:00 Test Item Value Reference Range Interpretation [...] 160-189 Very High >=190 Specimen slightly ictericBILIRUBIN, [id number] 12:40:00 Test Item Value Reference Range Interpretation Comments BILIRUBIN DIRECT (BEAKER) (test 2.4 mg/dL 0.1-0.5 H code = 706) GAMMA GLUTAMYL TRANSFERASE (GGT)2017-01-03 12:40:00 Test Item Value Reference Range Interpretation Comments GAMMA GLUTAMYL TRANSFERASE (BEAKER) 53 U/L 9-64 (test code = 364) Specimen slightly fcagggsPSQEEUM7360-05-57 12:39:00 Test Item Value Reference Range Interpretation Comments ETHANOL (BEAKER) (test code = 400) < mg/dL <=10 SCREEN, [id number] 12:36:00 Test Item Value Reference Range Interpretation Comments TEST URINE (BEAKER) (test Negative code = 583) POCT-GLUCOSE [id number] 12:34:00 Test Item Value Reference Range Interpretation Comments POC-GLUCOSE METER 189 mg/dL 70-[address] [facility] (BEAKER) (test code = [place] 1538) [address] HIV-1 ANTIGEN WITH HIV-1/2 [id number] 11:58:00 Test Item Value Reference Range Interpretation Comments HIV-1 ANTIGEN WITH HIV 1\\T\\2 Nonreactive Nonreactive ANTIBODY (2) (BEAKER) (test code = 2586) TROPONIN [id number] 09:44:00 Test Item Value Reference Range Interpretation [...] Previous: 0.0-4.9CK-MB Reference Range:<6.7 Normal6.7-10.0 Borderline>10.0 AbnormalACETAMINOPHEN [id number] 08:31:00 Test Item Value Reference Range Interpretation Comments ACETAMINOPHEN LEVEL (BEAKER) (test < ug/mL 10.0-30.0 L code = 344) TROPONIN [id number] 05:53:00 Test Item Value Reference Range Interpretation [...] acute neurological disease, and persistent tachyarrhythmia.BASIC METABOLIC [id number] 05:53:00 Test Item Value Reference Range Interpretation [...] TO CALCULA TE ESTIMATED GFR. Specimen slightly ebozoyfKUJVXVNEEK7561-19-01 05:52:00 Test Item Value Reference Range Interpretation Comments PHOSPHORUS (BEAKER) (test code = 5.7 mg/dL 2.3-4.7 H 604) HEPATIC FUNCTION [id number] 05:52:00 Test Item Value Reference Range Interpretation [...] Specimen slightly ictericCREATINE KINASE (CK), TOTAL AND [id number] 05:52:00 Test Item Value Reference Range Interpretation Comments CREATINE KINASE TOTAL (BEAKER) 341 U/L 29-200 H (test code = 380) CREATINE KINASE-MB (BEAKER) (test 5.4 ng/mL 0.0-6.6 code = 750) CREATINE KINASE-MB INDEX (BEAKER) 1.6 % (test code = 395) Effective 05/08/2014: CK-MB Reference Range ChangeNew: 0.0-6.6 Previous: 0.0-4.9CK-MB Reference Range:<6.7 Normal6.7-10.0 Borderline>10.0 AbnormalCBC W/PLT COUNT & AUTO [id number] 05:48:00 Test Item Value Reference Range Interpretation [...] K/ L 0.00-0.20 (test code = 417) 0.26VTQOCKWHDO2699-73-31 05:09:00 Test Item Value Reference Range Interpretation Comments FIBRINOGEN LEVEL (BEAKER) (test 427 mg/dl 225-434 code = 658) [id number] 05:09:00 Test Item Value Reference Range Interpretation Comments PARTIAL THROMBOPLASTIN TIME 36.2 seconds 22.5-36.0 H (BEAKER) (test code = 760) PROTHROMBIN TIME/[id number] 05:08:00 Test Item Value Reference Range Interpretation Comments PROTIME (BEAKER) (test code = 22.8 seconds 11.7-14.7 H 759) INR (BEAKER) (test code = 370) 2.0 <=5.9 RECOMMENDED COUMADIN/WARFARIN INR THERAPY RANGESSTANDARD DOSE: 2.0 - 3.0 Includes: PROPHYLAXIS forvenous thrombosis, systemic embolization; TREATMENT for venous thrombosis and/or pulmonary embolus.HIGH RISK: Target INR is 2.5-3.5 for patients with mechanical heart valves.HEPATITIS PANEL, [id number] 03:40:00 Test Item Value Reference Range Interpretation Comments HEPATITIS A IGM ANTIBODY (BEAKER) Nonreactive Nonreactive (test code = 498) HEPATITIS B CORE IGM ANTIBODY Nonreactive Nonreactive (BEAKER) (test code = 645) HEPATITIS C ANTIBODY (BEAKER) Nonreactive Nonreactive (test code = 367) HEPATITIS B SURFACE ANTIGEN (2) Nonreactive Nonreactive (BEAKER) (test code = 2585) CREATININE, RANDOM [id number] 03:18:00 Test Item Value Reference Range Interpretation Comments CREATININE URINE (BEAKER) (test 118.7 mg/dL code = 375) Reference Range: No NormalsSODIUM, RANDOM [id number] 03:18:00 Test Item Value Reference Range Interpretation Comments SODIUM URINE (BEAKER) (test code = 60 meq/L 243) Reference Range: No NormalsUREA NITROGEN, RANDOM [id number] 03:18:00 Test Item Value Reference Range Interpretation Comments UREA NITROGEN URINE (BEAKER) (test 303 mg/dL code = 538) Reference Range: No [id number] 03:07:00 Test Item Value Reference Range Interpretation Comments AMMONIA (BEAKER) (test code = 348) 48 mol/L 18-72 K-[id number] 02:57:00 Test Item Value Reference Range Interpretation [...] within 95-100% range. URINALYSIS W/ REFLEX URINE [id number] 02:53:00 Test Item Value Reference Range Interpretation [...] = 514) SOURCE(BEAKER) (test code = 2795) [id number] 02:49:00 Test Item Value Reference Range Interpretation Comments PARTIAL THROMBOPLASTIN TIME 39.4 seconds 22.5-36.0 H (BEAKER) (test code = 760) PROTHROMBIN TIME/[id number] 02:48:00 Test Item Value Reference Range Interpretation Comments PROTIME (BEAKER) (test code = 22.0 seconds 11.7-14.7 H 759) INR (BEAKER) (test code = 370) 1.9 <=5.9 RECOMMENDED COUMADIN/WARFARIN INR THERAPY RANGESSTANDARD DOSE: 2.0 - 3.0 Includes: PROPHYLAXIS forvenous thrombosis, systemic embolization; TREATMENT for venous thrombosis and/or pulmonary embolus.HIGH RISK: Target INR is 2.5-3.5 for patients with mechanical heart valves.[id number] 02:48:00 Test Item Value Reference Range Interpretation Comments FIBRINOGEN LEVEL (BEAKER) (test 421 mg/dl 225-434 code = 658) BLOOD GAS, [id number] 02:43:00 Test Item Value Reference Range Interpretation [...] 21.0 % CBC W/PLT COUNT & AUTO [id number] 02:43:00 Test Item Value Reference Range Interpretation [...] code = 417) 0.00LACTIC ACID, VENOUS, WHOLE [id number] 02:35:00 Test Item Value Reference Range Interpretation Comments LACTATE BLOOD VENOUS (2) (BEAKER) 0.8 mmol/L 0.5-2.2 (test code = 2872) Effective 10/23/2015: Units/Reference Range ChangeNew: 0.5-2.2 mmol/L Previous: 5-20 mg/dLSpecimen slightly [id number] 11:32:00 Test Item Value Reference Range Interpretation Comments AGAP (test code = AGAP) 14.6 10.0-20.0 [facility]YP[facility]PSCQRX0467[facility]17 11:32:00 Test Item Value Reference Range Interpretation Comments eGFR (test code = eGFR) 33 [facility]JgepovlMBVJNLXEWRNC8146-75-30 11:32:00 Test Item Value Reference Range Interpretation Comments Calcium Lvl (test code = Calcium Lvl) 8.3 8.5-10.5 [facility]QsjcneyZYRWJZCBUNVK6906-62-24 11:32:00 Test Item Value Reference Range Interpretation Comments Glucose Lvl (test code = Glucose Lvl) 81 70-99 [facility]PlccpuvCXRCLKWCGPQA4491-53-08 11:32:00 Test Item Value Reference Range Interpretation Comments Creatinine Lvl (test code = Creatinine 1.95 0.50-1.40 Lvl) [facility]EsoqmrzPINVUMTGMOED0477-92-30 11:32:00 Test Item Value Reference Range Interpretation Comments BUN (test code = BUN) 55 7-22 [facility]RwtjleaAFOBOFRSRSJY9586-81-80 11:32:00 Test Item Value Reference Range Interpretation Comments CO2 (test code = CO2) 19 24-32 [facility]QvbvwxuYYEPOJNKJJHV8353-53-18 11:32:00 Test Item Value Reference Range Interpretation Comments Chloride Lvl (test code = Chloride Lvl) 110 95-109 [facility]SvkesimMYOZGHHHPWCK6142-79-46 11:32:00 Test Item Value Reference Range Interpretation Comments Sodium Lvl (test code = Sodium Lvl) 139 135-145 [facility]TkqlyzvMTULZJYXSPKX8919-64-28 11:32:00 Test Item Value Reference Range Interpretation Comments Potassium Lvl (test code = Potassium 4.6 3.5-5.1 Lvl) [facility] CenterDpxrjsjYMJWEEOAKR2721-75-25 11:32:00 Test Item Value Reference Range Interpretation Comments Lymphocytes (test code = Lymphocytes) 30.4 20.0-40.0 [facility] CenterPmkvwlhQCJJCFVLZG3611-37-21 11:32:00 Test Item Value Reference Range Interpretation Comments Eosinophils (test code = 4.5 See_Comment [A utomated message] The Eosinophils) system which ge nerated this result tra nsmitted reference range : <=4.0. The reference r leo was not used to int erpret this result as normal/abnormal . [facility] CenterYtpqfxqXIXBYEDAQG3996-91-39 11:32:00 Test Item Value Reference Range Interpretation Comments Monocytes (test code = Monocytes) 13.7 2.0-12.0 [facility] CenterGwmouxmIIRYYVVLWX6622-15-66 11:32:00 Test Item Value Reference Range Interpretation Comments Segs-Bands # (test code = Segs-Bands #) 2.6 1.5-8.1 [facility] CenterJqinibuNKQRKGKBYM3159-07-69 11:32:00 Test Item Value Reference Range Interpretation Comments Basophils (test code = 0.7 See_Comment [Aut omated message] The Basophils) system which ge nerated this result tra nsmitted reference range : <=1.0. The reference r leo was not used to int erpret this result as normal/abnormal . [facility] CenterIopooguDUOOYUXFNN8982-98-61 11:32:00 Test Item Value Reference Range Interpretation Comments Monocytes # (test code 0.7 See_Comment [Aut omated message] The = Monocytes #) system which generated this result tra nsmitted reference range : <=0.8. The reference r leo was not used to int erpret this result as normal/abnormal . [facility] CenterTzmpanvJFZAVXKVOM3023-50-70 11:32:00 Test Item Value Reference Range Interpretation Comments Lymphocytes # (test code = Lymphocytes 1.6 1.0-5.5 #) [facility] CenterPaewmxqZEPLOBXOTB8524-67-80 11:32:00 Test Item Value Reference Range Interpretation Comments Eosinophils # (test code 0.2 See_Comment [A utomated message] The = Eosinophils #) system [employer] generated this result tra nsmitted reference range : <=0.5. The reference r leo was not used to int erpret this result as normal/abnormal . [facility] CenterFmztielVQLYFZNCTB2556-86-59 11:32:00 Test Item Value Reference Range Interpretation Comments Segs (test code = Segs) 50.7 45.0-75.0 [facility] CenterTgafcleMDYUXETYBJ5654-93-34 11:32:00 Test Item Value Reference Range Interpretation [...] iron deficiency anemia, and renal disease. CPT: 83663 [facility] CenterMmpodxmDMENXXNPTY5230-43-12 11:32:00 Test Item Value Reference Range Interpretation Comments Hct (test code = Hct) 28.1 36.0-48.0 [facility] CenterNebwasgIZBSLMCUTW6020-37-10 11:32:00 Test Item Value Reference Range Interpretation Comments RBC (test code = RBC) 3.39 4.20-5.40 [facility] CenterBtdpbqnJKKXEPRLCH2970-06-11 11:32:00 Test Item Value Reference Range Interpretation Comments Hgb (test code = Hgb) 8.9 12.0-16.0 [facility] CenterPlasjrbRGCLTZGTTG4784-61-86 11:32:00 Test Item Value Reference Range Interpretation Comments WBC (test code = WBC) 5.1 3.7-10.4 [facility] CenterUbolpyeOYFVQBNPYK6655-75-08 11:32:00 Test Item Value Reference Range Interpretation Comments MPV (test code = MPV) 11.3 7.4-10.4 [facility] CenterOkltvunSNLCNUJUQW7060-20-63 11:32:00 Test Item Value Reference Range Interpretation Comments Platelet (test code = Platelet) 118 133-450 [facility] CenterLjpgmkbDFZIOAGYQO6680-18-59 11:32:00 Test Item Value Reference Range Interpretation Comments MCHC (test code = MCHC) 31.8 32.0-36.0 [facility] CenterHmosrqjYTBOATJGXC5539-18-44 11:32:00 Test Item Value Reference Range Interpretation Comments RDW (test code = RDW) 18.0 11.5-14.5 [facility] CenterGhanupqTUCXRCIJEX2806-90-66 11:32:00 Test Item Value Reference Range Interpretation Comments MCV (test code = MCV) 83.0 80.0-98.0 [facility] CenterEtxumvrEKLCNGDWED5175-53-10 11:32:00 Test Item Value Reference Range Interpretation Comments MCH (test code = MCH) 26.4 pg 27.0-31.0 [facility]XnrzwjmEIRSIASJHH9096-95-09 11:32:00 Test Item Value Reference Range Interpretation Comments C3 Complement (test code = C3 137 88-201 Complement) [facility] CenterYakobfmLBRDCNXLBX1525-49-81 11:32:00 Test Item Value Reference Range Interpretation Comments HIV. (test code = Negative *NA*(07/30/16 HIV.) 5:32 AM) [facility] CenterRatirrjFYDRYXOPPZ5174-00-86 11:05:00 Test Item Value Reference Range Interpretation [...] iron deficiency anemia, and renal disease. CPT: 84208 [facility] CenterQijpgntWOHUJNWGDD0481-16-41 11:05:00 Test Item Value Reference Range Interpretation Comments HIV. (test code = Negative *NA*(07/29/16 HIV.) 5:05 AM) [facility] CenterYsichggQYMBWTTZLY6893-06-19 11:05:00 Test Item Value Reference Range Interpretation Comments C3 Complement (test code = C3 92 88-201 Complement) [facility]2017-02-07 15:50:00 Test Item Value Reference Range Interpretation Comments eGFR (test code = eGFR) 25 [facility]2017-02-07 15:50:00 Test Item Value Reference Range Interpretation Comments BUN (test code = BUN) 55 7-22 [facility]2017-02-07 15:50:00 Test Item Value Reference Range Interpretation Comments CO2 (test code = CO2) 23 24-32 [facility]2017-02-07 15:50:00 Test Item Value Reference Range Interpretation Comments Chloride Lvl (test code = Chloride Lvl) 109 95-109 [facility]2017-02-07 15:50:00 Test Item Value Reference Range Interpretation Comments Glucose Lvl (test code = Glucose Lvl) 101 70-99 [facility]2017-02-07 15:50:00 Test Item Value Reference Range Interpretation Comments Potassium Lvl (test code = Potassium 4.0 3.5-5.1 Lvl) [facility]2017-02-07 15:50:00 Test Item Value Reference Range Interpretation Comments Sodium Lvl (test code = Sodium Lvl) 141 135-145 [facility]2017-02-07 15:50:00 Test Item Value Reference Range Interpretation Comments AGAP (test code = AGAP) 13.0 10.0-20.0 [facility]2017-02-07 15:50:00 Test Item Value Reference Range Interpretation Comments Calcium Lvl (test code = Calcium Lvl) 7.7 8.5-10.5 [facility]2017-02-07 15:50:00 Test Item Value Reference Range Interpretation Comments Creatinine Lvl (test code = Creatinine 2.49 0.50-1.40 Lvl) [facility] CenterRjloxfdSHJCANKKUH6403-93-90 15:50:00 Test Item Value Reference Range Interpretation Comments PT (test code = PT) 14.8 s 12.0-14.7 [facility] CenterVnpdquiZBCFBFRATD2924-85-15 15:50:00 Test Item Value Reference Range Interpretation Comments PTT (test code = PTT) 40.8 s 22.9-35.8 [facility] CenterTcmdnqvVWFECJQSRV7390-53-68 15:50:00 Test Item Value Reference Range Interpretation Comments INR (test code = INR) 1.14 0.85-1.17 [facility]QszvmgiHEBDMTDHUZ9764-69-57 15:50:00 Test Item Value Reference Range Interpretation Comments C3 Complement (test code = C3 94 88-201 Complement) [facility] CenterImwrkjuEPFJTIJKOP2204-81-41 10:35:00 Test Item Value Reference Range Interpretation Comments Lymphocytes # (test code = Lymphocytes 1.7 1.0-5.5 #) [facility] CenterBnmazsgRENNOYHWUY9691-34-59 10:35:00 Test Item Value Reference Range Interpretation Comments Segs-Bands # (test code = Segs-Bands #) 2.7 1.5-8.1 [facility] CenterLrjqzhgFVQGOWBKFH5900-38-13 10:35:00 Test Item Value Reference Range Interpretation Comments Eosinophils # (test code 0.1 See_Comment [A utomated message] The = Eosinophils #) system wh h generated this result tra nsmitted reference range : <=0.5. The reference r leo was not used to int erpret this result as normal/abnormal . [facility] CenterRspvwxrTDKJJDNMAU4955-01-48 10:35:00 Test Item Value Reference Range Interpretation Comments Monocytes # (test code 0.7 See_Comment [Aut omated message] The = Monocytes #) system which generated this result tra nsmitted reference range : <=0.8. The reference r leo was not used to int erpret this result as normal/abnormal . [facility] CenterQjgvldaOHHAIRGBBV4314-00-43 10:35:00 Test Item Value Reference Range Interpretation Comments Segs (test code = Segs) 51.3 45.0-75.0 [facility] CenterFptrauhYSJDUVAHFG9299-71-05 10:35:00 Test Item Value Reference Range Interpretation Comments Lymphocytes (test code = Lymphocytes) 31.6 20.0-40.0 [facility] CenterYpvejzhTVLHPICNQZ6705-36-24 10:35:00 Test Item Value Reference Range Interpretation Comments Monocytes (test code = Monocytes) 14.1 2.0-12.0 [facility] CenterKtkvzrsOPMDORLWNI9066-38-48 10:35:00 Test Item Value Reference Range Interpretation Comments Eosinophils (test code = 2.6 See_Comment [A utomated message] The Eosinophils) system which ge nerated this result tra nsmitted reference range : <=4.0. The reference r leo was not used to int erpret this result as normal/abnormal . [facility] CenterXivndknGPGVYBZQSF5305-75-41 10:35:00 Test Item Value Reference Range Interpretation Comments Basophils (test code = 0.4 See_Comment [Aut omated message] The Basophils) system which ge nerated this result tra nsmitted reference range : <=1.0. The reference r leo was not used to int erpret this result as normal/abnormal . [facility] CenterYwolyxpKSFZRHUEJG3378-78-90 10:35:00 Test Item Value Reference Range Interpretation Comments PB Smear Path Peripheral blood smear shows (test code = PB hypochromic normocytic Smear Path) anemia with anisopoikilocytsosis, no increase in schistocytes, slight polychromasia, a few estella cells, moderate thrombocytopenia. Impression: (1) no evidence of microangiopathic hemolysis, (2) RBC morphology is suggestive of anemia of chronic disease or iron deficiency anemia, and renal disease. CPT: 33255 [facility] CenterKlmlvmjIKJGXZENYX4231-42-43 10:35:00 Test Item Value Reference Range Interpretation Comments Hct (test code = Hct) 29.3 36.0-48.0 [place] [address]-02-07 10:35:00 Test Item Value Reference Range Interpretation Comments Hgb (test code = Hgb) 9.2 12.0-16.0 [place] [address]-02-07 10:35:00 Test Item Value Reference Range Interpretation Comments RBC (test code = RBC) 3.54 4.20-5.40 [facility] CenterLewgscmFTQLXLNGRV5820-32-24 10:35:00 Test Item Value Reference Range Interpretation Comments WBC (test code = WBC) 5.3 3.7-10.4 [facility] CenterOsstdgqCDLZEUEDKH3207-07-59 10:35:00 Test Item Value Reference Range Interpretation Comments Platelet (test code = Platelet) 87 133-450 [facility] CenterPjoybmxYSJEAOOGOD4649-68-38 10:35:00 Test Item Value Reference Range Interpretation Comments MCHC (test code = MCHC) 31.4 32.0-36.0 [facility] CenterNkgraowYWGQLCZBXP8584-96-36 10:35:00 Test Item Value Reference Range Interpretation Comments RDW (test code = RDW) 17.9 11.5-14.5 [facility] CenterWgfqqlbXWMQEIRVBQ2277-56-74 10:35:00 Test Item Value Reference Range Interpretation Comments MPV (test code = MPV) 10.9 7.4-10.4 [facility] CenterHoqjbatYRKWXICDPE8496-85-09 10:35:00 Test Item Value Reference Range Interpretation Comments MCH (test code = MCH) 26.0 pg 27.0-31.0 [facility] CenterCjqchwgNGODHNGNFI6515-01-85 10:35:00 Test Item Value Reference Range Interpretation Comments MCV (test code = MCV) 82.8 80.0-98.0 [facility]GqdkyxnIZHUXLMUYY4799-59-55 10:35:00 Test Item Value Reference Range Interpretation Comments HIV. (test code = Negative *NA*(07/28/16 HIV.) 4:35 AM) [facility] HospitalCARDIAC QYHIAUN0228-74-83 10:22:00 Test Item Value Reference Range Interpretation Comments Total CK (test code = Total CK) 190 12-191 [facility]2017-02-06 10:22:00 Test Item Value Reference Range Interpretation Comments Calcium Lvl (test code = Calcium Lvl) 7.8 8.5-10.5 [facility]2017-02-06 10:22:00 Test Item Value Reference Range Interpretation Comments CO2 (test code = CO2) 21 24-32 [facility]2017-02-06 10:22:00 Test Item Value Reference Range Interpretation Comments Sodium Lvl (test code = Sodium Lvl) 140 135-145 [facility]2017-02-06 10:22:00 Test Item Value Reference Range Interpretation Comments Potassium Lvl (test code = Potassium 3.8 3.5-5.1 Lvl) [facility]2017-02-06 10:22:00 Test Item Value Reference Range Interpretation Comments Chloride Lvl (test code = Chloride Lvl) 106 95-109 [facility]2017-02-06 10:22:00 Test Item Value Reference Range Interpretation Comments Bili Total (test code = Bili Total) 0.4 0.2-1.3 [facility]2017-02-06 10:22:00 Test Item Value Reference Range Interpretation Comments Alk Phos (test code = Alk Phos) 74 39-136 [facility]2017-02-06 10:22:00 Test Item Value Reference Range Interpretation Comments eGFR (test code = eGFR) 19 [facility]2017-02-06 10:22:00 Test Item Value Reference Range Interpretation Comments Total Protein (test code = Total 5.2 6.4-8.4 Protein) [facility]2017-02-06 10:22:00 Test Item Value Reference Range Interpretation Comments ALT (test code = ALT) 822 See_Comment [Auto mated message] The system which ge nerated this result transmit rohit reference range : <=65. The reference range was not used to interpr et this result as reji l/abnormal. [facility]2017-02-06 10:22:00 Test Item Value Reference Range Interpretation Comments AST (test code = AST) 205 See_Comment [Auto mated message] The system which ge nerated this result transmit rohit reference range : <=37. The reference range was not used to interpr et this result as reji l/abnormal. [facility]2017-02-06 10:22:00 Test Item Value Reference Range Interpretation Comments Albumin Lvl (test code = Albumin Lvl) 1.8 3.5-5.0 [facility]2017-02-06 10:22:00 Test Item Value Reference Range Interpretation Comments BUN (test code = BUN) 54 7-22 [facility]2017-02-06 10:22:00 Test Item Value Reference Range Interpretation Comments Glucose Lvl (test code = Glucose Lvl) 143 70-99 [facility]2017-02-06 10:22:00 Test Item Value Reference Range Interpretation Comments Creatinine Lvl (test code = Creatinine 3.11 0.50-1.40 Lvl) [facility]2017-02-06 10:22:00 Test Item Value Reference Range Interpretation Comments B/C Ratio (test code = B/C Ratio) 17 6-25 [facility]2017-02-06 10:22:00 Test Item Value Reference Range Interpretation Comments AGAP (test code = AGAP) 16.8 10.0-20.0 [facility]2017-02-06 10:22:00 Test Item Value Reference Range Interpretation Comments Globulin (test code = Globulin) 3.4 2.7-4.2 [facility]2017-02-06 10:22:00 Test Item Value Reference Range Interpretation Comments A/G Ratio (test code = A/G Ratio) 0.5 0.7-1.6 [facility]2017-02-06 10:22:00 Test Item Value Reference Range Interpretation Comments Magnesium Lvl (test code = Magnesium 2.0 1.8-2.4 Lvl) [facility]2017-02-06 10:22:00 Test Item Value Reference Range Interpretation Comments Phosphorus (test code = Phosphorus) 3.7 2.5-4.5 [facility] CenterPwpyqczPBHUAWJJGE4986-21-69 10:22:00 Test Item Value Reference Range Interpretation Comments RDW (test code = RDW) 17.7 11.5-14.5 [facility] CenterBnfbbywUEHOALXFPQ6228-06-69 10:22:00 Test Item Value Reference Range Interpretation Comments MCHC (test code = MCHC) 32.9 32.0-36.0 [facility] CenterUmmqzroDPJHXBXASX5130-27-15 10:22:00 Test Item Value Reference Range Interpretation Comments Hct (test code = Hct) 25.4 36.0-48.0 [facility] CenterLhwnhriFVZGVASFNN2883-51-55 10:22:00 Test Item Value Reference Range Interpretation Comments MCH (test code = MCH) 26.4 pg 27.0-31.0 [facility] CenterSvfxqxcCNAKEWFQNN4505-62-26 10:22:00 Test Item Value Reference Range Interpretation Comments MCV (test code = MCV) 80.3 80.0-98.0 [facility] CenterIfkgskeUSTWJCIJEY0113-89-29 10:22:00 Test Item Value Reference Range Interpretation Comments MPV (test code = MPV) 11.4 7.4-10.4 [facility] CenterAnsrxqqFEIDHNUSMW9032-30-86 10:22:00 Test Item Value Reference Range Interpretation Comments Platelet (test code = Platelet) 74 133-450 [facility] CenterRjnpztcREYRXSAKVL4538-80-38 10:22:00 Test Item Value Reference Range Interpretation Comments RBC (test code = RBC) 3.16 4.20-5.40 [facility] CenterFpxtgndBWSVOCIDED6004-11-66 10:22:00 Test Item Value Reference Range Interpretation Comments WBC (test code = WBC) 5.3 3.7-10.4 [facility] CenterOdrjmtxIZNWSNYWOU3247-49-27 10:22:00 Test Item Value Reference Range Interpretation Comments Hgb (test code = Hgb) 8.4 12.0-16.0 [facility] CenterBrfnuigELCUGMORFK5661-52-00 10:22:00 Test Item Value Reference Range Interpretation Comments Monocytes (test code = Monocytes) 14.5 2.0-12.0 [facility] CenterEhfmblkWVIIDWXGMV2479-96-29 10:22:00 Test Item Value Reference Range Interpretation Comments Lymphocytes (test code = Lymphocytes) 29.8 20.0-40.0 [facility] CenterQufjcwhTMRKZZNLCC3769-48-92 10:22:00 Test Item Value Reference Range Interpretation Comments Eosinophils # (test code 0.1 See_Comment [A utomated message] The = Eosinophils #) system whic h generated this result tra nsmitted reference range : <=0.5. The reference r leo was not used to int erpret this result as normal/abnormal . [facility] CenterSyospgwUTTQVKXFPR4604-46-25 10:22:00 Test Item Value Reference Range Interpretation Comments Monocytes # (test code 0.8 See_Comment [Aut omated message] The = Monocytes #) system which generated this result tra nsmitted reference range : <=0.8. The reference r leo was not used to int erpret this result as normal/abnormal . [facility] CenterNbkdupgOHPECYQTIN8082-79-11 10:22:00 Test Item Value Reference Range Interpretation Comments Segs-Bands # (test code = Segs-Bands #) 2.9 1.5-8.1 [facility] CenterGcjrntaAMOSSMDNQQ0762-24-04 10:22:00 Test Item Value Reference Range Interpretation Comments Lymphocytes # (test code = Lymphocytes 1.6 1.0-5.5 #) [facility] CenterRyuvdcyMAAKHLRQJW7092-70-16 10:22:00 Test Item Value Reference Range Interpretation Comments Basophils (test code = 0.4 See_Comment [Aut omated message] The Basophils) system which ge nerated this result tra nsmitted reference range : <=1.0. The reference r leo was not used to int erpret this result as normal/abnormal . [facility] CenterRtjuuewKORAAFIPDJ6376-47-41 10:22:00 Test Item Value Reference Range Interpretation Comments Eosinophils (test code = 1.2 See_Comment [A utomated message] The Eosinophils) system which ge nerated this result tra nsmitted reference range : <=4.0. The reference r leo was not used to int erpret this result as normal/abnormal . [facility] CenterNmvgvbrEEVXIJPFYP0045-05-36 10:22:00 Test Item Value Reference Range Interpretation Comments Segs (test code = Segs) 54.1 45.0-75.0 [facility] [id number] 10:22:00 Test Item Value Reference Range Interpretation Comments Hgb A1C (test code = Hgb A1C) 8.9 [facility] [id number] 17:40:00 Test Item Value Reference Range Interpretation Comments Total CK (test code = Total CK) 344 12-191 [facility] CenterGsoakteMMDXNUIUUZ4177-37-74 17:40:00 Test Item Value Reference Range Interpretation Comments IVETTE (test code = IVETTE) Positive *ABN*(07/26/16 11:40 AM) [facility] CenterLqurjolNYRRHGKLGT2052-69-11 17:40:00 Test Item Value Reference Range Interpretation Comments DIRECTOR FIXED INCOME Ab (test code = DIRECTOR FIXED INCOME Ab) no gt [facility] GcxdjonNFZFYNJWGT8673-93-40 17:40:00 Test Item Value Reference Range Interpretation Comments Sm Ab (test code = Sm Ab) no gt [facility] BccrngwCEVHTONLQG6578-44-14 17:40:00 Test Item Value Reference Range Interpretation Comments IVETTE Interp (test code Pattern appears = IVETTE Interp) Nucleolar. [facility] CenterCubwzneDTAJQSPQWN3751-32-64 17:40:00 Test Item Value Reference Range Interpretation Comments SS-B (La) Ab (test code = SS-B (La) Ab) no gt [facility] CenterYktykspRRGNWVPXNH3056-84-42 17:40:00 Test Item Value Reference Range Interpretation Comments SS-A (Ro) Ab (test code = SS-A (Ro) Ab) no gt [facility] KnecmokVUTVQOJADJ2984-78-12 17:40:00 Test Item Value Reference Range Interpretation Comments DNA Ab (DS) (test Negative (07/26/16 11:40 code = DNA Ab (DS)) AM) [facility] CenterPfpdgysZMSXJBMFDJ7276-81-82 17:40:00 Test Item Value Reference Range Interpretation Comments IVETTE Titer (test code = 1:40 *ABN*(07/26/16 IVETTE Titer) 11:40 AM) [facility] [id number] 17:40:00 Test Item Value Reference Range Interpretation Comments U Sodium (test code = U Sodium) 21 [facility] CenterMpofzizVACBKLGNYR1768-21-37 14:00:00 Test Item Value Reference Range Interpretation Comments INR (test code = INR) 1.11 0.85-1.17 [facility] CenterGjvxdykIZNFXGYGTV0084-89-14 14:00:00 Test Item Value Reference Range Interpretation Comments PT (test code = PT) 14.5 s 12.0-14.7 [facility] CenterJgsckipOIXVYRIQPP1986-12-13 14:00:00 Test Item Value Reference Range Interpretation Comments Hep A IgM (test code Negative *NA*(07/26/16 = Hep A IgM) 8:00 AM) [facility] HospitalFiuwimmPCUTBIYTQZ4931-65-95 14:00:00 Test Item Value Reference Range Interpretation Comments Hep B Core IgM (test Negative *NA*(07/26/16 code = Hep B Core 8:00 AM) IgM) [facility]JTEOAGHXJ4076-17-95 14:00:00 Test Item Value Reference Range Interpretation Comments Hep C Ab (test code = Negative *NA*(07/26/16 Hep C Ab) 8:00 AM) [facility] CenterZqrljhrRMTJUSWBWN9852-03-73 14:00:00 Test Item Value Reference Range Interpretation Comments Hep Bs Ag (test code Negative *NA*(07/26/16 = Hep Bs Ag) 8:00 AM) [facility]2017-02-05 10:42:00 Test Item Value Reference Range Interpretation Comments B/C Ratio (test code = B/C Ratio) 17 6-25 [facility]2017-02-05 10:42:00 Test Item Value Reference Range Interpretation Comments ALT (test code = ALT) 1232 See_Comment [Auto mated message] The system which ge nerated this result transmit rohit reference range : <=65. The reference range was not used to interpr et this result as reji l/abnormal. [facility]2017-02-05 10:42:00 Test Item Value Reference Range Interpretation Comments A/G Ratio (test code = A/G Ratio) 0.5 0.7-1.6 [facility]2017-02-05 10:42:00 Test Item Value Reference Range Interpretation Comments Bili Total (test code = Bili Total) 0.3 0.2-1.3 [facility]2017-02-05 10:42:00 Test Item Value Reference Range Interpretation Comments Alk Phos (test code = Alk Phos) 79 39-136 [facility]2017-02-05 10:42:00 Test Item Value Reference Range Interpretation Comments AST (test code = AST) 586 See_Comment [Auto mated message] The system which ge nerated this result transmit rohit reference range : <=37. The reference range was not used to interpr et this result as reji l/abnormal. [facility] [id number] 10:42:00 Test Item Value Reference Range Interpretation Comments Total Protein (test code = Total 5.5 6.4-8.4 Protein) [facility] [id number] 10:42:00 Test Item Value Reference Range Interpretation Comments Globulin (test code = Globulin) 3.7 2.7-4.2 [facility] [id number] 10:42:00 Test Item Value Reference Range Interpretation Comments Albumin Lvl (test code = Albumin Lvl) 1.8 3.5-5.0 [facility] [id number] 10:42:00 Test Item Value Reference Range Interpretation Comments Magnesium Lvl (test code = Magnesium 2.1 1.8-2.4 Lvl) [facility] CenterJngwgrtTWEFVWPCBS7720-69-80 10:42:00 Test Item Value Reference Range Interpretation Comments Acanthocyte (test code = Acanthocyte) Slight [facility] CenterCnpkfvhVCQYKCFKKS0375-57-47 10:42:00 Test Item Value Reference Range Interpretation Comments Rouleaux (test code = Present *ABN*(07/26/16 Rouleaux) 4:42 AM) [facility] HospitalApqdivlRMWFEHJVCB6566-72-08 10:42:00 Test Item Value Reference Range Interpretation Comments Anisocyte (test code = 1+ *ABN*(07/26/16 4:42 Anisocyte) AM) [facility] CenterIxaizepFDXVGYPLKH8794-92-89 10:42:00 Test Item Value Reference Range Interpretation Comments Basophils # (test code 0.1 See_Comment [Aut omated message] The = Basophils #) system which generated this result tra nsmitted reference range : <=0.2. The reference r leo was not used to int erpret this result as normal/abnormal . [facility] HospitalLccsubzATNPWWCEQY8638-32-65 10:42:00 Test Item Value Reference Range Interpretation Comments Large Plt (test code Moderate *ABN*(07/26/16 = Large Plt) 4:42 AM) [facility] HospitalTiajjkuRZYXMBLNRX5274-70-45 10:42:00 Test Item Value Reference Range Interpretation Comments C4 Complement (test code = C4 42 16-47 Complement) [facility] AND [id number] 16:34:00 Test Item Value Reference Range Interpretation Comments UA Sq Epi (test code = UA Sq Epi) None Seen [facility] AND [id number] 16:34:00 Test Item Value Reference Range Interpretation Comments UA Waxy Cast (test code = UA Waxy Cast) 1 [facility] AND [id number] 16:34:00 Test Item Value Reference Range Interpretation Comments UA Hyal Cast (test 4 See_Comment [Automat ed message] The code = UA Hyal Cast) system which generated this result transmit rohit reference range : <=2. The reference range was not used to interpr et this result as reji l/abnormal. [facility] AND [id number] 16:34:00 Test Item Value Reference Range Interpretation Comments UA Bacteria (test code = UA Occasional /HPF Bacteria) [facility] AND [id number] 16:34:00 Test Item Value Reference Range Interpretation Comments UA Mucus (test code = UA Mucus) Few /LPF [facility] AND [id number] 16:34:00 Test Item Value Reference Range Interpretation Comments UA Amorph Destiny (test code = Occasional /HPF UA Amorph Destiny) [facility] AND [id number] 16:34:00 Test Item Value Reference Range Interpretation Comments UA Leuk Est (test Negative (07/25/16 10:34 code = UA Leuk Est) AM) [facility] AND [id number] 16:34:00 Test Item Value Reference Range Interpretation Comments UA Nitrite (test code Negative (07/25/16 10:34 = UA Nitrite) AM) [facility] AND [id number] 16:34:00 Test Item Value Reference Range Interpretation Comments UA RBC (test code = 2 See_Comment [Automa rohit message] The UA RBC) system which ge nerated this result transmit rohit reference range : <=2. The reference range was not used to interpr et this result as reji l/abnormal. [facility] AND [id number] 16:34:00 Test Item Value Reference Range Interpretation Comments UA WBC (test code = 6 See_Comment [Automa rohit message] The UA WBC) system which ge nerated this result transmit rohit reference range : <=5. The reference range was not used to interpr et this result as reji l/abnormal. [facility] AND [id number] 16:34:00 Test Item Value Reference Range Interpretation Comments UA Urobilinogen (test code = UA 2.0 0.1-1.0 Urobilinogen) [facility] AND [id number] 16:34:00 Test Item Value Reference Range Interpretation Comments UA Ketones (test code = UA Negative mg/dL Ketones) [facility] AND [id number] 16:34:00 Test Item Value Reference Range Interpretation Comments UA Glucose (test code = UA Glucose) 70 mg/dL [facility] AND [id number] 16:34:00 Test Item Value Reference Range Interpretation Comments UA Blood (test code = Negative (07/25/16 10:34 UA Blood) AM) [facility] AND [id number] 16:34:00 Test Item Value Reference Range Interpretation Comments UA Bili (test code = Negative *NA*(07/25/16 UA Bili) 10:34 AM) [facility] AND [id number] 16:34:00 Test Item Value Reference Range Interpretation Comments UA Protein (test code = UA >=300 mg/dL Protein) [facility] AND [id number] 16:34:00 Test Item Value Reference Range Interpretation Comments UA Spec Grav (test code = UA Spec Grav) 1.012 [facility] AND [id number] 16:34:00 Test Item Value Reference Range Interpretation Comments UA pH (test code = UA pH) 5.5 5.0-8.0 [facility] AND [id number] 16:34:00 Test Item Value Reference Range Interpretation Comments UA Turbidity (test code Slight *ABN*(07/25/16 = UA Turbidity) 10:34 AM) [facility] AND [id number] 16:34:00 Test Item Value Reference Range Interpretation Comments UA Color (test code = Dark Yellow *NA*(07/25/16 UA Color) 10:34 AM) [facility] AND [id number] 16:34:00 Test Item Value Reference Range Interpretation Comments UA Gran Cast (test code = UA Gran Cast) 9 [facility] [id number] 16:34:00 Test Item Value Reference Range Interpretation Comments U Sodium (test code = U Sodium) 30 [facility] [id number] 16:34:00 Test Item Value Reference Range Interpretation Comments U Prot/Creat (test code = U Prot/Creat) 3.1 [facility] [id number] 16:34:00 Test Item Value Reference Range Interpretation Comments U Protein (test code = U Protein) 420.9 [facility] [id number] 16:34:00 Test Item Value Reference Range Interpretation Comments U Creatinine (test code = U 136.00 Creatinine) [facility]Cra[facility] [id number] 08:55:00 Test Item Value Reference Range Interpretation Comments Magnesium Lvl (test code = Magnesium 2.0 1.8-2.4 Lvl) [facility]Cra[facility] [id number] 08:55:00 Test Item Value Reference Range Interpretation Comments Phosphorus (test code = Phosphorus) 5.2 2.5-4.5 [facility] [id number] 17:29:00 Test Item Value Reference Range Interpretation Comments Troponin-I (test code 0.28 See_Comment [Auto mated message] The = Troponin-I) system which g enerated this result transmit rohit reference range : <=0.40. The reference r leo was not used to interpr et this result as reji l/abnormal. [facility] [employer]2017-02-03 17:29:00 Test Item Value Reference Range Interpretation Comments Total CK (test code = Total CK) 2616 12-191 [facility]Inf[facility]2017-[facility]-03 17:29:00 Test Item Value Reference Range Interpretation Comments Troponin-T (test code 0.144 See_Comment [Auto mated message] The = Troponin-T) system which g enerated this result transmit rohit reference range : <=0.100. The reference r leo was not used to interpr et this result as reji l/abnormal. [facility] [employer]2017-02-03 17:29:00 Test Item Value Reference Range Interpretation Comments CK MB Index (test 0.2 See_Comment [Automate d message] The code = CK MB Index) system w [facility] generated this result transmit rohit reference range : <=2.5. The reference range was not used to interpr et this result as reji l/abnormal. [facility] [employer]2017-02-03 17:29:00 Test Item Value Reference Range Interpretation Comments CK MB (test code = CK MB) 6.3 0.5-3.6 [facility] [employer]2017-02-03 11:20:00 Test Item Value Reference Range Interpretation Comments Troponin-I (test code 0.38 See_Comment [Auto mated message] The = Troponin-I) system which g enerated this result transmit rohit reference range : <=0.40. The reference r leo was not used to interpr et this result as reji l/abnormal. [facility] [employer]2017-02-03 11:20:00 Test Item Value Reference Range Interpretation Comments Troponin-T (test code 0.173 See_Comment [Auto mated message] The = Troponin-T) system which g enerated this result transmit rohit reference range : <=0.100. The reference r leo was not used to interpr et this result as reji l/abnormal. [facility] [employer]2017-02-03 11:20:00 Test Item Value Reference Range Interpretation Comments CK MB Index (test 0.2 See_Comment [Automate d message] The code = CK MB Index) system w [facility] generated this result transmit rohit reference range : <=2.5. The reference range was not used to interpr et this result as reji l/abnormal. [facility] [employer]2017-02-03 11:20:00 Test Item Value Reference Range Interpretation Comments CK MB (test code = CK MB) 5.6 0.5-3.6 [facility] [employer] [id number] 11:20:00 Test Item Value Reference Range Interpretation Comments Phosphorus (test code = Phosphorus) 5.5 2.5-4.5 [facility] [employer]2017-02-03 06:18:00 Test Item Value Reference Range Interpretation Comments BNP (test code = BNP) 701 [facility] [employer]2017-02-03 04:59:27 Test Item Value Reference Range Interpretation Comments Troponin-I (test code 0.57 See_Comment [Auto mated message] The = Troponin-I) system which g enerated this result transmit rohit reference range : <=0.40. The reference r leo was not used to interpr et this result as reji l/abnormal. [facility] [employer]2016-12-26 10:22:00 Test Item Value Reference Range Interpretation Comments BNP (test code = BNP) 526 [facility]2016-12-26 10:22:00 Test Item Value Reference Range Interpretation Comments Magnesium Lvl (test code = Magnesium 2.1 1.8-2.4 Lvl) [facility]2016-12-26 10:22:00 Test Item Value Reference Range Interpretation Comments Glucose Lvl (test code = Glucose Lvl) 117 70-99 [facility]2016-12-26 10:22:00 Test Item Value Reference Range Interpretation Comments BUN (test code = BUN) 41 7-22 [facility]2016-12-26 10:22:00 Test Item Value Reference Range Interpretation Comments Creatinine Lvl (test code = Creatinine 2.00 0.50-1.40 Lvl) [facility]2016-12-26 10:22:00 Test Item Value Reference Range Interpretation Comments Calcium Lvl (test code = Calcium Lvl) 9.0 8.5-10.5 [facility]2016-12-26 10:22:00 Test Item Value Reference Range Interpretation Comments Chloride Lvl (test code = Chloride Lvl) 102 95-109 [facility]2016-12-26 10:22:00 Test Item Value Reference Range Interpretation Comments CO2 (test code = CO2) 33 24-32 [facility]2016-12-26 10:22:00 Test Item Value Reference Range Interpretation Comments Sodium Lvl (test code = Sodium Lvl) 144 135-145 [facility]2016-12-26 10:22:00 Test Item Value Reference Range Interpretation Comments Potassium Lvl (test code = Potassium 4.0 3.5-5.1 Lvl) [facility]2016-12-26 10:22:00 Test Item Value Reference Range Interpretation Comments eGFR (test code = eGFR) 32 [facility]2016-12-26 10:22:00 Test Item Value Reference Range Interpretation Comments AGAP (test code = AGAP) 13.0 10.0-20.0 [facility]2016-12-26 10:22:00 Test Item Value Reference Range Interpretation Comments Phosphorus (test code = Phosphorus) 4.6 2.5-4.5 [id number] 10:22:00 Test Item Value Reference Range Interpretation Comments RBC (test code = RBC) 3.68 4.20-5.40 [facility] [id number] 10:22:00 Test Item Value Reference Range Interpretation Comments Hgb (test code = Hgb) 9.9 12.0-16.0 [facility] CenterHmuplhvSZCGDCENAF1125-86-21 10:22:00 Test Item Value Reference Range Interpretation Comments MCH (test code = MCH) 26.8 pg 27.0-31.0 [facility] CenterKdchlmaDIODAIFQDN3865-85-31 10:22:00 Test Item Value Reference Range Interpretation Comments MCHC (test code = MCHC) 34.2 32.0-36.0 [facility] CenterHaylbriEMFRSSGKYS5580-72-92 10:22:00 Test Item Value Reference Range Interpretation Comments MCV (test code = MCV) 78.3 80.0-98.0 [facility] CenterGlppwuoCZTLJVVHXB2468-56-85 10:22:00 Test Item Value Reference Range Interpretation Comments Hct (test code = Hct) 28.8 36.0-48.0 [facility] CenterOjkoscpUVATBEBMRJ6771-62-37 10:22:00 Test Item Value Reference Range Interpretation Comments Platelet (test code = Platelet) 191 133-450 [facility] CenterHpzplsuVGREVOAYXJ0670-45-20 10:22:00 Test Item Value Reference Range Interpretation Comments MPV (test code = MPV) 9.5 7.4-10.4 [facility] CenterJmgxfmfUDFBJWCNIV8612-43-04 10:22:00 Test Item Value Reference Range Interpretation Comments RDW (test code = RDW) 15.3 11.5-14.5 [facility] CenterAdrtlzcTIOAOMWBMX2138-87-33 10:22:00 Test Item Value Reference Range Interpretation Comments WBC (test code = WBC) 5.6 3.7-10.4 [facility] CenterSunxswmHBFGHDYQKO1071-67-20 10:22:00 Test Item Value Reference Range Interpretation Comments Eosinophils # (test code 0.5 See_Comment [A utomated message] The = Eosinophils #) system whic h generated this result tra nsmitted reference range : <=0.5. The reference r leo was not used to int erpret this result as normal/abnormal . [facility] CenterNyxwhblQPIJAHGKED8448-19-96 10:22:00 Test Item Value Reference Range Interpretation Comments Microcyte (test code = 1+ *ABN*(06/15/16 Microcyte) 4:22 AM) [facility] CenterJyptujjPYCFWBPKQO6339-14-97 10:22:00 Test Item Value Reference Range Interpretation Comments Basophils # (test code 0.1 See_Comment [Aut omated message] The = Basophils #) system which generated this result tra nsmitted reference range : <=0.2. The reference r leo was not used to int erpret this result as normal/abnormal . [facility] CenterVtatnquLGQHLEOPMK7785-09-83 10:22:00 Test Item Value Reference Range Interpretation Comments Lymphocytes (test code = Lymphocytes) 33.5 20.0-40.0 [facility] CenterSqjqsveTVYFSIAYUJ0252-70-82 10:22:00 Test Item Value Reference Range Interpretation Comments Segs (test code = Segs) 47.6 45.0-75.0 [facility] CenterOygxdfrPAUZEXBIET3676-95-62 10:22:00 Test Item Value Reference Range Interpretation Comments Monocytes (test code = Monocytes) 8.4 2.0-12.0 [facility] CenterAnyxvgsDWZYRCKJKC8667-54-50 10:22:00 Test Item Value Reference Range Interpretation Comments Eosinophils (test code = 9.4 See_Comment [A utomated message] The Eosinophils) system which ge nerated this result tra nsmitted reference range : <=4.0. The reference r leo was not used to int erpret this result as normal/abnormal . [facility] CenterDjvtjbdQBFZRGIUCK8098-51-30 10:22:00 Test Item Value Reference Range Interpretation Comments Segs-Bands # (test code = Segs-Bands #) 2.6 1.5-8.1 [facility] CenterGokcthkQXWWANKODV1688-91-90 10:22:00 Test Item Value Reference Range Interpretation Comments Lymphocytes # (test code = Lymphocytes 1.9 1.0-5.5 #) [facility] CenterPjmtvgrULYSBMCZRI8112-13-69 10:22:00 Test Item Value Reference Range Interpretation Comments Basophils (test code = 1.1 See_Comment [Aut omated message] The Basophils) system which ge nerated this result tra nsmitted reference range : <=1.0. The reference r leo was not used to int erpret this result as normal/abnormal . [facility]IrhdkzjXAPEUMHMYG1171-77-90 10:22:00 Test Item Value Reference Range Interpretation Comments Monocytes # (test code 0.5 See_Comment [Aut omated message] The = Monocytes #) system which generated this result tra nsmitted reference range : <=0.8. The reference r leo was not used to int erpret this result as normal/abnormal . [facility]2016-12-25 11:03:00 Test Item Value Reference Range Interpretation Comments Phosphorus (test code = Phosphorus) 4.8 2.5-4.5 [facility]2016-12-25 11:03:00 Test Item Value Reference Range Interpretation Comments Magnesium Lvl (test code = Magnesium 2.0 1.8-2.4 Lvl) [facility]2016-12-25 11:03:00 Test Item Value Reference Range Interpretation Comments eGFR (test code = eGFR) 32 [facility]2016-12-25 11:03:00 Test Item Value Reference Range Interpretation Comments Chloride Lvl (test code = Chloride Lvl) 101 95-109 [facility]2016-12-25 11:03:00 Test Item Value Reference Range Interpretation Comments Potassium Lvl (test code = Potassium 4.4 3.5-5.1 Lvl) [facility]2016-12-25 11:03:00 Test Item Value Reference Range Interpretation Comments BUN (test code = BUN) 37 7-22 [facility]2016-12-25 11:03:00 Test Item Value Reference Range Interpretation Comments Glucose Lvl (test code = Glucose Lvl) 119 70-99 [facility]2016-12-25 11:03:00 Test Item Value Reference Range Interpretation Comments Creatinine Lvl (test code = Creatinine 2.00 0.50-1.40 Lvl) [facility]2016-12-25 11:03:00 Test Item Value Reference Range Interpretation Comments Sodium Lvl (test code = Sodium Lvl) 142 135-145 [facility]2016-12-25 11:03:00 Test Item Value Reference Range Interpretation Comments Calcium Lvl (test code = Calcium Lvl) 8.7 8.5-10.5 [facility]2016-12-25 11:03:00 Test Item Value Reference Range Interpretation Comments CO2 (test code = CO2) 32 24-32 [facility]2016-12-25 11:03:00 Test Item Value Reference Range Interpretation Comments AGAP (test code = AGAP) 13.4 10.0-20.0 [facility] CenterRpfxycqNYPVUXRRUE3155-11-47 11:03:00 Test Item Value Reference Range Interpretation Comments Eosinophils (test code = 10.3 See_Comment [A utomated message] The Eosinophils) system which ge nerated this result tra nsmitted reference range : <=4.0. The reference r leo was not used to int erpret this result as normal/abnormal . [facility] CenterUajvtzdQUPYFZKNCX7279-18-22 11:03:00 Test Item Value Reference Range Interpretation Comments Basophils # (test code 0.1 See_Comment [Aut omated message] The = Basophils #) system which generated this result tra nsmitted reference range : <=0.2. The reference r leo was not used to int erpret this result as normal/abnormal . [facility] CenterUylhcxyJIWYCBSGYE5146-53-80 11:03:00 Test Item Value Reference Range Interpretation Comments Eosinophils # (test code 0.5 See_Comment [A utomated message] The = Eosinophils #) system whic h generated this result tra nsmitted reference range : <=0.5. The reference r leo was not used to int erpret this result as normal/abnormal . [facility] CenterMwhfevvBPVSYPIDIY0193-04-36 11:03:00 Test Item Value Reference Range Interpretation Comments Monocytes # (test code 0.5 See_Comment [Aut omated message] The = Monocytes #) system which generated this result tra nsmitted reference range : <=0.8. The reference r leo was not used to int erpret this result as normal/abnormal . [facility] CenterUunwhvvAOERGHSCDO2572-39-96 11:03:00 Test Item Value Reference Range Interpretation Comments Segs-Bands # (test code = Segs-Bands #) 2.1 1.5-8.1 [facility] CenterUsmrmgcZWRXMGBEWK7120-66-10 11:03:00 Test Item Value Reference Range Interpretation Comments Basophils (test code = 1.2 See_Comment [Aut omated message] The Basophils) system which ge nerated this result tra nsmitted reference range : <=1.0. The reference r leo was not used to int erpret this result as normal/abnormal . [facility] CenterCzzmdzqCTAEJZFFSB3289-92-85 11:03:00 Test Item Value Reference Range Interpretation Comments Lymphocytes # (test code = Lymphocytes 1.9 1.0-5.5 #) [facility] CenterFofkdlkIOLBMCLJKP6947-33-47 11:03:00 Test Item Value Reference Range Interpretation Comments Segs (test code = Segs) 42.5 45.0-75.0 [facility] CenterDbefunoEICXODQBTF1224-00-77 11:03:00 Test Item Value Reference Range Interpretation Comments Lymphocytes (test code = Lymphocytes) 37.0 20.0-40.0 [facility] CenterRvlyynlMUZEARWCYW2634-80-96 11:03:00 Test Item Value Reference Range Interpretation Comments Monocytes (test code = Monocytes) 9.0 2.0-12.0 [facility] CenterPrkkspxSDZXVWBVBO1375-89-18 11:03:00 Test Item Value Reference Range Interpretation Comments MPV (test code = MPV) 9.8 7.4-10.4 [facility] CenterRpcmdhkXULKVIDEOX8688-90-43 11:03:00 Test Item Value Reference Range Interpretation Comments WBC (test code = WBC) 5.0 3.7-10.4 [facility] CenterIhphykdCDYPWEIBTG9904-15-38 11:03:00 Test Item Value Reference Range Interpretation Comments RBC (test code = RBC) 3.57 4.20-5.40 [facility] CenterJxitzelOAQQIMHPUW3797-71-59 11:03:00 Test Item Value Reference Range Interpretation Comments Hgb (test code = Hgb) 9.4 12.0-16.0 [facility] CenterDvzwvunWSLJDOCFGR8140-88-80 11:03:00 Test Item Value Reference Range Interpretation Comments Hct (test code = Hct) 28.5 36.0-48.0 [facility] CenterDkpnwmrREUFMEXGHZ2411-79-21 11:03:00 Test Item Value Reference Range Interpretation Comments Platelet (test code = Platelet) 183 133-450 [facility] CenterHvhtcjdYQQEIYTONQ7161-43-35 11:03:00 Test Item Value Reference Range Interpretation Comments MCV (test code = MCV) 79.9 80.0-98.0 [facility] CenterBxrjscyOLOVIIETTP5599-40-81 11:03:00 Test Item Value Reference Range Interpretation Comments MCH (test code = MCH) 26.3 pg 27.0-31.0 [facility] CenterZosylcsDKFWHSGAAT3297-55-90 11:03:00 Test Item Value Reference Range Interpretation Comments MCHC (test code = MCHC) 33.0 32.0-36.0 [facility] CenterUasiodhUAAHHTYQCV7555-12-30 11:03:00 Test Item Value Reference Range Interpretation Comments RDW (test code = RDW) 15.9 11.5-14.5 [facility]2016-12-24 10:26:00 Test Item Value Reference Range Interpretation Comments U Prot/Creat (test code = U Prot/Creat) 6.9 [facility]2016-12-24 10:26:00 Test Item Value Reference Range Interpretation Comments U Creatinine (test code = U Creatinine) 19.30 [facility]2016-12-24 10:26:00 Test Item Value Reference Range Interpretation Comments U Protein (test code = U Protein) 133.1 [facility] CenterMrootyrIFRMIYWICK9270-70-74 09:20:00 Test Item Value Reference Range Interpretation Comments MPV (test code = MPV) 9.7 7.4-10.4 [facility] CenterMlkbdevRMYORSJGQY0386-28-83 09:20:00 Test Item Value Reference Range Interpretation Comments Platelet (test code = Platelet) 184 133-450 [facility] CenterNjeoyzdBKBSWYCUCX3260-09-57 09:20:00 Test Item Value Reference Range Interpretation Comments RDW (test code = RDW) 15.9 11.5-14.5 [facility] CenterWmslnphMVGSIRFDVH1122-63-36 09:20:00 Test Item Value Reference Range Interpretation Comments MCV (test code = MCV) 79.3 80.0-98.0 [facility] CenterPaxicinRRTNXTZLBT1368-41-07 09:20:00 Test Item Value Reference Range Interpretation Comments MCHC (test code = MCHC) 33.0 32.0-36.0 [facility] CenterVrluludZNXAKGYHTR4077-10-92 09:20:00 Test Item Value Reference Range Interpretation Comments MCH (test code = MCH) 26.2 pg 27.0-31.0 [facility] CenterZfwcditHQQZKOEOVV9976-41-12 09:20:00 Test Item Value Reference Range Interpretation Comments Hct (test code = Hct) 29.4 36.0-48.0 [facility] CenterNcivpxlZWTHCAHFNA6473-54-44 09:20:00 Test Item Value Reference Range Interpretation Comments Hgb (test code = Hgb) 9.7 12.0-16.0 [facility] CenterLbeujkvRTBABQCCED0597-32-75 09:20:00 Test Item Value Reference Range Interpretation Comments RBC (test code = RBC) 3.70 4.20-5.40 [facility] CenterXpebhekKSNETFGGWS0758-15-04 09:20:00 Test Item Value Reference Range Interpretation Comments WBC (test code = WBC) 5.7 3.7-10.4 [facility] CenterCuiungbELVDDSKBGJ8326-62-52 09:20:00 Test Item Value Reference Range Interpretation Comments Basophils # (test code 0.1 See_Comment [Aut omated message] The = Basophils #) system which generated this result tra nsmitted reference range : <=0.2. The reference r leo was not used to int erpret this result as normal/abnormal . [facility] CenterGkwqhilNEQDLDVVKG5911-48-95 09:20:00 Test Item Value Reference Range Interpretation Comments Lymphocytes # (test code = Lymphocytes 2.2 1.0-5.5 #) [facility] CenterUoxktxfUZFIZYULWP7069-12-09 09:20:00 Test Item Value Reference Range Interpretation Comments Eosinophils # (test code 0.5 See_Comment [A utomated message] The = Eosinophils #) system whic h generated this result tra nsmitted reference range : <=0.5. The reference r leo was not used to int erpret this result as normal/abnormal . [facility] CenterAtchkmiAMESCXDSUI0634-91-35 09:20:00 Test Item Value Reference Range Interpretation Comments Monocytes # (test code 0.5 See_Comment [Aut omated message] The = Monocytes #) system which generated this result tra nsmitted reference range : <=0.8. The reference r leo was not used to int erpret this result as normal/abnormal . [facility] CenterFdarkfpKWJJIRNOTN3254-16-38 09:20:00 Test Item Value Reference Range Interpretation Comments Basophils (test code = 1.1 See_Comment [Aut omated message] The Basophils) system which ge nerated this result tra nsmitted reference range : <=1.0. The reference r leo was not used to int erpret this result as normal/abnormal . [facility] CenterNvvomkaNHQYUNLCZG3745-45-91 09:20:00 Test Item Value Reference Range Interpretation Comments Segs-Bands # (test code = Segs-Bands #) 2.3 1.5-8.1 [place] [id number] 09:20:00 Test Item Value Reference Range Interpretation Comments Eosinophils (test code = 9.5 See_Comment [A utomated message] The Eosinophils) system which ge nerated this result tra nsmitted reference range : <=4.0. The reference r leo was not used to int erpret this result as normal/abnormal . [facility] CenterMkmtdphONXRJZAOQM4779-38-40 09:20:00 Test Item Value Reference Range Interpretation Comments Monocytes (test code = Monocytes) 9.0 2.0-12.0 [facility] CenterRlrguupOBNLSMSCFG3187-80-54 09:20:00 Test Item Value Reference Range Interpretation Comments Lymphocytes (test code = Lymphocytes) 38.9 20.0-40.0 [facility] CenterRjiroymHVCEGHHZOP9874-92-65 09:20:00 Test Item Value Reference Range Interpretation Comments Segs (test code = Segs) 41.5 45.0-75.0 [facility]2016-12-24 06:34:00 Test Item Value Reference Range Interpretation Comments Magnesium Lvl (test code = Magnesium 1.7 1.8-2.4 Lvl) [facility]2016-12-24 06:34:00 Test Item Value Reference Range Interpretation Comments Phosphorus (test code = Phosphorus) 4.2 2.5-4.5 [facility]ud[facility]wkaWEMBHKWQSAES0971-68-62 06:34:00 Test Item Value Reference Range Interpretation Comments AGAP (test code = AGAP) 14.3 10.0-20.0 [facility]BvbdbnwOAYEZXVWUSBA5716-99-90 06:34:00 Test Item Value Reference Range Interpretation Comments eGFR (test code = eGFR) 41 [facility]ZntdiamCKVZNIZUCTQX5541-69-25 06:34:00 Test Item Value Reference Range Interpretation Comments Chloride Lvl (test code = Chloride Lvl) 103 95-109 [facility]TdbctvgZOSSBNROYWGX7364-47-09 06:34:00 Test Item Value Reference Range Interpretation Comments Calcium Lvl (test code = Calcium Lvl) 8.5 8.5-10.5 [facility]KkovpogWBOXUKIFDADD5733-26-39 06:34:00 Test Item Value Reference Range Interpretation Comments CO2 (test code = CO2) 32 24-32 [facility]ItdzttgUCMREWAEGTSV7698-86-16 06:34:00 Test Item Value Reference Range Interpretation Comments Glucose Lvl (test code = Glucose Lvl) 173 70-99 [facility]shsqqjZQDWAUSVQOCK3085-35-17 06:34:00 Test Item Value Reference Range Interpretation Comments BUN (test code = BUN) 37 7-22 [facility]JobgcyxDRVVIWIGKKLB7995-12-70 06:34:00 Test Item Value Reference Range Interpretation Comments Creatinine Lvl (test code = Creatinine 1.63 0.50-1.40 Lvl) [facility]JhmsnpdIARMXOKVLHJG5571-84-45 06:34:00 Test Item Value Reference Range Interpretation Comments Potassium Lvl (test code = Potassium 4.3 3.5-5.1 Lvl) [facility]ReyxnjdORLCNEQWOPDN9895-28-71 06:34:00 Test Item Value Reference Range Interpretation Comments Sodium Lvl (test code = Sodium Lvl) 145 135-145 [facility]2016-12-22 16:21:00 Test Item Value Reference Range Interpretation Comments Ammonia (test code = Ammonia) 48.0 [facility]BmoxiamWTCKFJGFRN6154-54-91 14:56:00 Test Item Value Reference Range Interpretation Comments IVETTE Interp (test code Pattern appears = IVETTE Interp) Nucleolar. [facility] HospitalGkoacbhKIWFBMNJWB6615-24-78 14:56:00 Test Item Value Reference Range Interpretation Comments IVETTE Titer (test code = 1:40 *ABN*(06/11/16 IVETTE Titer) 8:56 AM) [facility]mrGXGJYWEYJO9474-99-69 14:56:00 Test Item Value Reference Range Interpretation Comments Hep Bs Ag (test code Negative *NA*(06/11/16 = Hep Bs Ag) 8:56 AM) [facility] HospitalHbhmiffDZHNTZAGUE4510-74-66 14:56:00 Test Item Value Reference Range Interpretation Comments Hep C Ab (test code = Negative *NA*(06/11/16 Hep C Ab) 8:56 AM) [facility] HospitalBacyprqRUVVIBLEEY1135-86-03 14:56:00 Test Item Value Reference Range Interpretation Comments Hep B Core IgM (test Negative *NA*(06/11/16 code = Hep B Core 8:56 AM) IgM) [facility] CenterQcabwnxPVUUVGZNOJ2988-98-60 14:56:00 Test Item Value Reference Range Interpretation Comments Hep A IgM (test code Negative *NA*(06/11/16 = Hep A IgM) 8:56 AM) [facility] HospitalHfyithxENPTLCPDIS5735-89-76 14:56:00 Test Item Value Reference Range Interpretation Comments HIV Ag/Ab 4th Gen Negative *NA*(06/11/16 (test code = HIV 8:56 AM) Ag/Ab 4th Gen) [facility] HospitalPwkxotbERRZUSCTHY6754-37-97 14:56:00 Test Item Value Reference Range Interpretation Comments IVETTE (test code = IVETTE) Positive *ABN*(06/11/16 8:56 AM) [facility]2016-12-22 10:42:00 Test Item Value Reference Range Interpretation Comments Bili Total (test code = Bili Total) 0.1 0.2-1.3 [facility]2016-12-22 10:42:00 Test Item Value Reference Range Interpretation Comments Total Protein (test code = Total 5.2 6.4-8.4 Protein) [facility]2016-12-22 10:42:00 Test Item Value Reference Range Interpretation Comments Albumin Lvl (test code = Albumin Lvl) 1.6 3.5-5.0 [facility]2016-12-22 10:42:00 Test Item Value Reference Range Interpretation Comments B/C Ratio (test code = B/C Ratio) 20 6-25 [facility]2016-12-22 10:42:00 Test Item Value Reference Range Interpretation Comments Globulin (test code = Globulin) 3.6 2.7-4.2 [facility]2016-12-22 10:42:00 Test Item Value Reference Range Interpretation Comments A/G Ratio (test code = A/G Ratio) 0.4 0.7-1.6 [facility]2016-12-22 10:42:00 Test Item Value Reference Range Interpretation Comments Alk Phos (test code = Alk Phos) 74 39-136 [facility]2016-12-22 10:42:00 Test Item Value Reference Range Interpretation Comments ALT (test code = ALT) 14 See_Comment [Auto mated message] The system which ge nerated this result transmit rohit reference range : <=65. The reference range was not used to interpr et this result as reji l/abnormal. [facility]2016-12-22 10:42:00 Test Item Value Reference Range Interpretation Comments AST (test code = AST) 13 See_Comment [Auto mated message] The system which ge nerated this result transmit rohit reference range : <=37. The reference range was not used to interpr et this result as reji l/abnormal. [facility]VtucrjxVETLYYRJJS2568-65-79 10:42:00 Test Item Value Reference Range Interpretation Comments INR (test code = INR) 1.06 0.85-1.17 [facility]UwbohltSWOZXBPDAB2056-75-33 10:42:00 Test Item Value Reference Range Interpretation Comments PT (test code = PT) 14.0 s 12.0-14.7 [facility] HospitalDrxplyjLQXWLVOERT2203-20-99 10:42:00 Test Item Value Reference Range Interpretation Comments PTT (test code = PTT) 36.4 s 22.9-35.8 [facility] DZZXIHTFE0861-48-00 10:42:00 Test Item Value Reference Range Interpretation Comments Hgb A1C (test code = Hgb A1C) 10.5 [facility] HospitalCARAC IPDFAAW8319-96-94 02:08:00 Test Item Value Reference Range Interpretation Comments CK MB Index (test 1.8 See_Comment [Automate d message] The code = CK MB Index) system w [facility] generated this result transmit rohit reference range : <=2.5. The reference range was not used to interpr et this result as reji l/abnormal. [facility] YBNLUYT9885-87-00 02:08:00 Test Item Value Reference Range Interpretation Comments CK MB (test code = CK MB) 2.9 0.5-3.[address] [facility] UAZXYSB6028-97-54 02:08:00 Test Item Value Reference Range Interpretation Comments Troponin-T (test code 0.061 See_Comment [Auto mated message] The = Troponin-T) system which g enerated this result transmit rohit reference range : <=0.100. The reference r leo was not used to interpr et this result as reji l/abnormal. [facility] PETMWVH6266-08-88 02:08:00 Test Item Value Reference Range Interpretation Comments Total CK (test code = Total CK) 159 12-[address] [facility] [id number] 02:08:00 Test Item Value Reference Range Interpretation Comments Troponin-I (test code no gt See_Comment [Auto mated message] The = Troponin-I) system which g enerated this result transmit rohit reference range : <=0.40. The reference r elo was not used to interpr et this result as reji l/abnormal. [facility]2016-12-22 02:08:00 Test Item Value Reference Range Interpretation Comments Bili Total (test code = Bili Total) 0.2 0.2-1.3 [facility]2016-12-22 02:08:00 Test Item Value Reference Range Interpretation Comments Bili Direct (test code 0.1 See_Comment [Aut omated message] The = Bili Direct) system which generated this result tra nsmitted reference range : <=0.3. The reference r leo was not used to int erpret this result as reji l/abnormal. [facility]2016-12-22 02:08:00 Test Item Value Reference Range Interpretation Comments Bili Indirect (test 0.1 See_Comment [Automa rohit message] The code = Bili Indirect) system which generated this result tra nsmitted reference range : <=1.0. The reference r leo was not used to int erpret this result as normal/abnormal . [facility]2016-12-22 02:08:00 Test Item Value Reference Range Interpretation Comments Total Protein (test code = Total 5.7 6.4-8.4 Protein) [facility]2016-12-22 02:08:00 Test Item Value Reference Range Interpretation Comments A/G Ratio (test code = A/G Ratio) 0.5 0.7-1.6 [place] [id number] 02:08:00 Test Item Value Reference Range Interpretation Comments Albumin Lvl (test code = Albumin Lvl) 1.8 3.5-5.0 [facility]2016-12-22 02:08:00 Test Item Value Reference Range Interpretation Comments Globulin (test code = Globulin) 3.9 2.7-4.2 [place] [id number] 02:08:00 Test Item Value Reference Range Interpretation Comments Alk Phos (test code = Alk Phos) 99 39-136 [facility]2016-12-22 02:08:00 Test Item Value Reference Range Interpretation Comments AST (test code = AST) 21 See_Comment [Auto mated message] The system which ge nerated this result transmit rohit reference range : <=37. The reference range was not used to interpr et this result as reji l/abnormal. [facility] [id number] 02:08:00 Test Item Value Reference Range Interpretation Comments ALT (test code = ALT) 17 See_Comment [Auto mated message] The system which ge nerated this result transmit rohit reference range : <=65. The reference range was not used to interpr et this result as reji l/abnormal. [facility] [id number] 02:08:00 Test Item Value Reference Range Interpretation Comments UDS Note (test code = See Note *NA*(06/10/16 UDS Note) 8:08 PM) [facility] [id number] 02:08:00 Test Item Value Reference Range Interpretation Comments U Propoxyph Scr (test Negative *NA*(06/10/16 code = U Propoxyph Scr) 8:08 PM) [facility] [id number] 02:08:00 Test Item Value Reference Range Interpretation Comments U Opiate Scr (test Negative *NA*(06/10/16 code = U Opiate Scr) 8:08 PM) [facility] [id number] 02:08:00 Test Item Value Reference Range Interpretation Comments U Methadone Scr (test Negative *NA*(06/10/16 code = U Methadone Scr) 8:08 PM) [facility] [id number] 02:08:00 Test Item Value Reference Range Interpretation Comments U Phencyc Scr (test Negative *NA*(06/10/16 code = U Phencyc Scr) 8:08 PM) [facility] [id number] 02:08:00 Test Item Value Reference Range Interpretation Comments U Cannab Scr (test Negative *NA*(06/10/16 code = U Cannab Scr) 8:08 PM) [facility] [id number] 02:08:00 Test Item Value Reference Range Interpretation Comments U Amph Scr (test code Negative *NA*(06/10/16 = U Amph Scr) 8:08 PM) [facility] [id number] 02:08:00 Test Item Value Reference Range Interpretation Comments U Kelly Scr (test code Negative *NA*(06/10/16 = U Kelly Scr) 8:08 PM) [facility] [id number] 02:08:00 Test Item Value Reference Range Interpretation Comments U Benzodia Scr (test Negative *NA*(06/10/16 code = U Benzodia Scr) 8:08 PM) [facility] [id number] 02:08:00 Test Item Value Reference Range Interpretation Comments U Cocaine Scr (test Negative *NA*(06/10/16 code = U Cocaine Scr) 8:08 PM) [facility] DxqrgjxASGJTI8100-17-85 02:08:00 Test Item Value Reference Range Interpretation Comments LDL (Calculated) (test code = LDL 75 (Calculated)) [facility] HospitalCequpkgMSRPND5270-17-05 02:08:00 Test Item Value Reference Range Interpretation Comments VLDL (test code = VLDL) 27 [facility] CenterIstpgzeUFBJHX4635-40-31 02:08:00 Test Item Value Reference Range Interpretation Comments Chol (test code = Chol) 133 [facility] HospitalIafgdxmUQQXTS5072-85-73 02:08:00 Test Item Value Reference Range Interpretation Comments Trig (test code = Trig) 133 [facility] OkvhamhHPGUHK4153-97-60 02:08:00 Test Item Value Reference Range Interpretation Comments CHD Risk (test code = CHD Risk) 4.29 3.90-5.80 [facility] CenterUusqgfvWJLBOR7789-69-06 02:08:00 Test Item Value Reference Range Interpretation Comments HDL (test code = HDL) 31 [facility] AND [id number] 02:08:00 Test Item Value Reference Range Interpretation Comments UA Urobilinogen (test code = UA <=1.0 mg/dL 0.1-1.0 Urobilinogen) [facility] AND [id number] 02:08:00 Test Item Value Reference Range Interpretation Comments UA Ketones (test code = UA Negative mg/dL Ketones) [facility] [id number] 02:08:00 Test Item Value Reference Range Interpretation Comments UA Glucose (test code = UA Glucose) 300 mg/dL [facility] [id number] 02:08:00 Test Item Value Reference Range Interpretation Comments UA Protein (test code = UA >=300 mg/dL Protein) [facility] [id number] 02:08:00 Test Item Value Reference Range Interpretation Comments UA pH (test code = UA pH) 6.0 5.0-8.0 [facility] [id number] 02:08:00 Test Item Value Reference Range Interpretation Comments UA Nitrite (test code Negative (06/10/16 8:08 = UA Nitrite) PM) [facility] AND [id number] 02:08:00 Test Item Value Reference Range Interpretation Comments UA Blood (test code = Trace *ABN*(06/10/16 UA Blood) 8:08 PM) [facility] [id number] 02:08:00 Test Item Value Reference Range Interpretation Comments UA Bili (test code = Negative *NA*(06/10/16 UA Bili) 8:08 PM) [facility] [id number] 02:08:00 Test Item Value Reference Range Interpretation Comments UA Mucus (test code = UA Mucus) Few /LPF [facility] [id number] 02:08:00 Test Item Value Reference Range Interpretation Comments UA RBC (test code = 4 See_Comment [Automa rohit message] The UA RBC) system which ge nerated this result transmit rohit reference range : <=2. The reference range was not used to interpr et this result as reji l/abnormal. [facility] AND [id number] 02:08:00 Test Item Value Reference Range Interpretation Comments UA Sq Epi (test code = UA Sq Epi) Few /LPF [facility] [id number] 02:08:00 Test Item Value Reference Range Interpretation Comments UA WBC (test code = 5 See_Comment [Automa rohit message] The UA WBC) system which ge nerated this result transmit rohit reference range : <=5. The reference range was not used to interpr et this result as reji l/abnormal. [facility] [id number] 02:08:00 Test Item Value Reference Range Interpretation Comments UA Leuk Est (test code Small *ABN*(06/10/16 = UA Leuk Est) 8:08 PM) [facility] AND [id number] 02:08:00 Test Item Value Reference Range Interpretation Comments UA Hyal Cast (test 1 See_Comment [Automat ed message] The code = UA Hyal Cast) system which generated this result transmit rohit reference range : <=2. The reference range was not used to interpr et this result as reji l/abnormal. [facility] [id number] 02:08:00 Test Item Value Reference Range Interpretation Comments UA Spec Grav (test code = UA Spec Grav) 1.009 [facility] AND [id number] 02:08:00 Test Item Value Reference Range Interpretation Comments UA Color (test code = Yellow *NA*(06/10/16 UA Color) 8:08 PM) [facility] [id number] 02:08:00 Test Item Value Reference Range Interpretation Comments UA Turbidity (test code = Clear (06/10/16 8:08 UA Turbidity) PM) [facility] [id number] 02:08:00 Test Item Value Reference Range Interpretation Comments U Preg (test code = U Negative (06/10/16 8:08 Preg) PM) [facility]2016-12-22 02:08:00 Test Item Value Reference Range Interpretation Comments U Protein (test code = U Protein) 375.4 [facility] [id number] 02:08:00 Test Item Value Reference Range Interpretation Comments U Prot/Creat (test code = U Prot/Creat) 5.4 [facility] [id number] 02:08:00 Test Item Value Reference Range Interpretation Comments U Creatinine (test code = U Creatinine) 69.80 [facility] [id number] 16:53:00 Test Item Value Reference Range Interpretation Comments BNP (test code = BNP) [facility]5 [facility] FGCZLOK2079-98-01 16:53:00 Test Item Value Reference Range Interpretation Comments Troponin-I (test code no gt See_Comment [Auto mated message] The = Troponin-I) system which g enerated this result transmit rohit reference range : <=0.40. The reference r leo was not used to interpr et this result as reji l/abnormal. [facility] CenterNEHPCHEM [id number] 13:02:00 Test Item Value Reference Range Interpretation Comments Lactic Acid WB (test code = Lactic Acid 0.9 0.5-2.2 WB) [facility]orxhjzOORCFGNLDN9422-06-11 12:29:44 Test Item Value Reference Range Interpretation Comments Valproic Acid Lvl (test code = Valproic 10 50-100 Acid Lvl) [facility]LixewtoNXOLOOPZDATKX3525-31-96 11:21:27 Test Item Value Reference Range Interpretation Comments hCG Tot (test code = hCG Tot) 1 [facility]2015-01-06 11:21:00 Test Item Value Reference Range Interpretation Comments Albumin Lvl (test code = Albumin Lvl) 3.2 3.5-5.0 [facility]2015-01-06 11:21:00 Test Item Value Reference Range Interpretation Comments Total Protein (test code = Total 6.6 6.4-8.4 Protein) [facility]2015-01-06 11:21:00 Test Item Value Reference Range Interpretation Comments Bili Total (test code = Bili Total) 0.6 0.2-1.3 [facility]2015-01-06 11:21:00 Test Item Value Reference Range Interpretation Comments Alk Phos (test code = Alk Phos) 59 39-136 [facility]2015-01-06 11:21:00 Test Item Value Reference Range Interpretation Comments AST (test code = AST) 11 See_Comment [Auto mated message] The system which ge nerated this result transmit rohit reference range : <=37. The reference range was not used to interpr et this result as reji l/abnormal. [facility]2015-01-06 11:21:00 Test Item Value Reference Range Interpretation Comments ALT (test code = ALT) 17 See_Comment [Auto mated message] The system which ge nerated this result transmit rohit reference range : <=65. The reference range was not used to interpr et this result as reji l/abnormal. [facility]2015-01-06 11:21:00 Test Item Value Reference Range Interpretation Comments eGFR (test code = eGFR) 99 [facility]2015-01-06 11:21:00 Test Item Value Reference Range Interpretation Comments Glucose Lvl (test code = Glucose Lvl) 314 70-99 [facility]2015-01-06 11:21:00 Test Item Value Reference Range Interpretation Comments Potassium Lvl (test code = Potassium 3.4 3.5-5.1 Lvl) [place] [id number] 11:21:00 Test Item Value Reference Range Interpretation Comments BUN (test code = BUN) 11 7-22 [facility]2015-01-06 11:21:00 Test Item Value Reference Range Interpretation Comments Creatinine Lvl (test code = Creatinine 0.8 0.5-1.4 Lvl) [facility]2015-01-06 11:21:00 Test Item Value Reference Range Interpretation Comments Sodium Lvl (test code = Sodium Lvl) 134 135-145 [facility]2015-01-06 11:21:00 Test Item Value Reference Range Interpretation Comments Chloride Lvl (test code = Chloride Lvl) 94 95-109 [facility]2015-01-06 11:21:00 Test Item Value Reference Range Interpretation Comments Calcium Lvl (test code = Calcium Lvl) 9.1 8.5-10.5 [facility]2015-01-06 11:21:00 Test Item Value Reference Range Interpretation Comments CO2 (test code = CO2) 24 24-32 [facility]2015-01-06 11:21:00 Test Item Value Reference Range Interpretation Comments A/G Ratio (test code = A/G Ratio) 0.9 0.7-1.6 [facility]2015-01-06 11:21:00 Test Item Value Reference Range Interpretation Comments Globulin (test code = Globulin) 3.4 2.0-4.0 [facility]2015-01-06 11:21:00 Test Item Value Reference Range Interpretation Comments B/C Ratio (test code = B/C Ratio) 14 6-25 [facility]2015-01-06 11:21:00 Test Item Value Reference Range Interpretation Comments AGAP (test code = AGAP) 19.4 10.0-20.0 [facility]2015-01-06 11:21:00 Test Item Value Reference Range Interpretation Comments Lipase Lvl (test code = Lipase Lvl) 81 73-393 [facility] CenterEvcaragRNTRLLFFFL1612-31-46 11:21:00 Test Item Value Reference Range Interpretation Comments Large Plt (test code = Large Plt) Slight [facility] CenterVknvbtpGTSKRGEOXC9926-26-36 11:21:00 Test Item Value Reference Range Interpretation Comments Basophils # (test code 0.0 See_Comment [Aut omated message] The = Basophils #) system which generated this result tra nsmitted reference range : <=0.2. The reference r leo was not used to int erpret this result as normal/abnormal . [facility] CenterKjhidbjMYIWHNSCMR8967-77-05 11:21:00 Test Item Value Reference Range Interpretation Comments Anisocyte (test code = 1+ *ABN*(06/26/14 5:21 Anisocyte) AM) [facility] CenterUcwtrsgVBJZSJTDYZ6936-37-15 11:21:00 Test Item Value Reference Range Interpretation Comments Monocytes # (test code 0.6 See_Comment [Aut omated message] The = Monocytes #) system which generated this result tra nsmitted reference range : <=0.8. The reference r leo was not used to int erpret this result as normal/abnormal . [facility] CenterOiqoqpzTJOSZRZYGT6333-75-74 11:21:00 Test Item Value Reference Range Interpretation Comments Eosinophils # (test code 0.1 See_Comment [A utomated message] The = Eosinophils #) system whic h generated this result tra nsmitted reference range : <=0.5. The reference r leo was not used to int erpret this result as normal/abnormal . [facility] CenterPjkklohXDGIHFIDAX1311-95-11 11:21:00 Test Item Value Reference Range Interpretation Comments Lymphocytes # (test code = Lymphocytes 2.5 1.0-5.5 #) [facility] CenterRozzjwdGSEJKCRASC7985-73-50 11:21:00 Test Item Value Reference Range Interpretation Comments Segs (test code = Segs) 63.3 45.0-75.0 [facility] CenterNgjztwlBJOPWCIDOU9133-75-59 11:21:00 Test Item Value Reference Range Interpretation Comments Segs-Bands # (test code = Segs-Bands #) 5.6 1.5-8.1 [facility] CenterFxbkgweXNMEYBZUBZ2804-69-16 11:21:00 Test Item Value Reference Range Interpretation Comments Basophils (test code = 0.0 See_Comment [Aut omated message] The Basophils) system which ge nerated this result tra nsmitted reference range : <=1.0. The reference r leo was not used to int erpret this result as normal/abnormal . [facility] CenterHwazqtkKILVWSTZJY5107-49-81 11:21:00 Test Item Value Reference Range Interpretation Comments Eosinophils (test code = 0.9 See_Comment [A utomated message] The Eosinophils) system which ge nerated this result tra nsmitted reference range : <=4.0. The reference r leo was not used to int erpret this result as normal/abnormal . [facility] CenterGivnrxrLHSJDYXXFI2417-99-81 11:21:00 Test Item Value Reference Range Interpretation Comments Monocytes (test code = Monocytes) 7.0 2.0-12.0 [facility] CenterEusqqgaTJYOKETHZV9560-18-56 11:21:00 Test Item Value Reference Range Interpretation Comments Lymphocytes (test code = Lymphocytes) 28.8 20.0-40.0 [facility] CenterRrvlllhTFQVSOXPBG0829-37-20 11:21:00 Test Item Value Reference Range Interpretation Comments WBC (test code = WBC) 8.8 3.7-10.4 [facility] CenterVpgflusRNGMMCNKFF7778-79-98 11:21:00 Test Item Value Reference Range Interpretation Comments RBC (test code = RBC) 5.19 4.20-5.40 [facility] CenterJftzgsuEWQVOKOWGO2404-59-88 11:21:00 Test Item Value Reference Range Interpretation Comments Hgb (test code = Hgb) 14.4 12.0-16.0 [facility] CenterDwglpeyEAKVXSAMUO9450-37-36 11:21:00 Test Item Value Reference Range Interpretation Comments Hct (test code = Hct) 43.1 36.0-48.0 [facility] CenterUxncmcrSCZYLAIZIH0182-74-45 11:21:00 Test Item Value Reference Range Interpretation Comments MCV (test code = MCV) 83.1 80.0-98.0 [facility] CenterDcbqbmfLSBMIVGFMQ5020-01-80 11:21:00 Test Item Value Reference Range Interpretation Comments MCH (test code = MCH) 27.8 pg 27.0-31.0 [facility] CenterSdgxkfzSTRSWEXFPO6517-64-37 11:21:00 Test Item Value Reference Range Interpretation Comments RDW (test code = RDW) 13.1 11.5-14.5 [facility] CenterRizeyoqXRNRQIXKMK0199-93-82 11:21:00 Test Item Value Reference Range Interpretation Comments MCHC (test code = MCHC) 33.5 32.0-36.0 [facility] CenterNruqgmzUFDPOHKXBX6636-21-71 11:21:00 Test Item Value Reference Range Interpretation Comments Platelet (test code = Platelet) 201 133-450 [facility] CenterFwdsnfyVUIZVABLIG2115-49-25 11:21:00 Test Item Value Reference Range Interpretation Comments MPV (test code = MPV) 10.4 7.4-10.4 [facility]AkkvrwdCMROTLPKXM1024-32-38 04:48:55 Test Item Value Reference Range Interpretation Comments UA Rutledge Yeast (test code = UA Occasional /HPF A Rutledge Yeast) [facility] CenterTawozvhCYQLDLSSKF2036-17-19 04:48:55 Test Item Value Reference Range Interpretation Comments UA Mucus (test code = UA Mucus) Few /LPF N [facility] CenterSyoohnmZFJEPZFXEQ2624-72-40 04:48:55 Test Item Value Reference Range Interpretation Comments UA Sq Epi (test code = UA Sq Moderate /LPF A Epi) [facility] CenterBqaxjnmMDEVEDOELO6335-37-58 04:48:55 Test Item Value Reference Range Interpretation Comments Micro? (test code = Performed (04/14/2013 N Micro?) 23:48:55) [facility] CenterFecozcrAHTRKIZUUJ7122-53-10 04:48:55 Test Item Value Reference Range Interpretation Comments UA WBC (test code = UA WBC) 0-2 /HPF N [facility] CenterVrqntwlOVEFEZTQNM1739-40-30 04:48:55 Test Item Value Reference Range Interpretation Comments UA Bacteria (test code = UA Occasional /HPF N Bacteria) [facility] CenterOmjdcgzFWOXFUTJCN8036-68-57 04:48:55 Test Item Value Reference Range Interpretation Comments UA Glucose (test code = UA Glucose) 500 mg/dL A [facility] CenterUjtmvhuBMERSZKCYS9475-63-09 04:48:55 Test Item Value Reference Range Interpretation Comments UA Bili (test code = Negative *NA*(04/14/2013 UA Bili) 23:48:55) [facility] CenterCwfzjtvBWKVGHUGWU7713-89-26 04:48:55 Test Item Value Reference Range Interpretation Comments UA Ketones (test code = Trace A UA Ketones) *ABN*(04/14/2013 23:48:55) [facility] CenterHqopurkHVXTFAOMMG3974-82-05 04:48:55 Test Item Value Reference Range Interpretation Comments UA Blood (test code = Negative (04/14/2013 N UA Blood) 23:48:55) [facility] CenterSnvhqglJEABPXKFXQ9292-01-31 04:48:55 Test Item Value Reference Range Interpretation Comments UA Urobilinogen (test code = UA 0.2 0.1-1.0 N Urobilinogen) [facility] CenterKshocyeMFCOXCNKFZ6715-71-31 04:48:55 Test Item Value Reference Range Interpretation Comments UA Nitrite (test code Negative (04/14/2013 N = UA Nitrite) 23:48:55) [facility] CenterHdpfmvvTZICDFOEJT5658-84-20 04:48:55 Test Item Value Reference Range Interpretation Comments UA Leuk Est (test Negative (04/14/2013 N code = UA Leuk Est) 23:48:55) [facility] CenterSjukvosDKBICKINOU9447-12-79 04:48:55 Test Item Value Reference Range Interpretation Comments UA Turbidity (test code = Clear (04/14/2013 N UA Turbidity) 23:48:55) [facility] CenterAxxizdiCTZBIHPLGJ1408-32-85 04:48:55 Test Item Value Reference Range Interpretation Comments UA Color (test code = Yellow *NA*(04/14/2013 UA Color) 23:48:55) [facility] CenterOrltatyRQZXCVVIQW9611-41-26 04:48:55 Test Item Value Reference Range Interpretation Comments UA pH (test code = UA pH) 7.0 1 5.0-8.0 N [facility] CenterTzvtwwaJPQRWQPNPL9986-17-45 04:48:55 Test Item Value Reference Range Interpretation Comments UA Spec Grav (test code = UA Spec 1.025 1 N Grav) [facility] CenterYlteddvSGURXPMHHF8344-25-39 04:48:55 Test Item Value Reference Range Interpretation Comments UA Protein (test code = Trace A UA Protein) *ABN*(04/14/2013 23:48:55) [facility]RggdntqVEVFDULSF8674-96-01 04:28:00 Test Item Value Reference Range Interpretation Comments S Preg (test code = S Negative *NA*(04/14/2013 Preg) 23:28:00) [facility] [place]villeTcqtrfdKLDVYTEAC7827-48-65 04:28:00 Test Item Value Reference Range Interpretation Comments Lipase Lvl (test code = Lipase Lvl) 233 73-393 N [facility] [place]villeVyzlvntLRLMSIPLR3881-74-47 04:28:00 Test Item Value Reference Range Interpretation Comments Globulin (test code = Globulin) 4.1 2.0-4.0 H [facility] [place]villeSzajuuqNWJVFLRHS5706-69-23 04:28:00 Test Item Value Reference Range Interpretation Comments AGAP (test code = AGAP) 10.5 10.0-20.0 N [facility] [place]villeLmlsgsyHNFUOHRXG3052-84-01 04:28:00 Test Item Value Reference Range Interpretation Comments B/C Ratio (test code = B/C Ratio) 6 6-25 N [facility]villeYbkscbxNGKGMNGPF8426-57-71 04:28:00 Test Item Value Reference Range Interpretation Comments A/G Ratio (test code = A/G Ratio) 0.7 0.7-1.6 N [facility] [place]villeUiykfmjOUSBQJPYA5186-43-51 04:28:00 Test Item Value Reference Range Interpretation Comments eGFR (test code = eGFR) 130 [facility] [place]villeIhkbdxtNXCCJYZEJ3349-26-76 04:28:00 Test Item Value Reference Range Interpretation Comments Albumin Lvl (test code = Albumin Lvl) 2.9 3.5-5.0 L [facility]villePjhkpudQXLGBFRLN2633-05-46 04:28:00 Test Item Value Reference Range Interpretation Comments ASPARTATE TRANSAMINASE 20 See_Comment N [Aut omated message] (test code = ASPARTATE The s ystem which TRANSAMINASE) generated this result transmitted ref erence range: <=37. Th e reference range was not used to interpr et this result as normal/abnormal . [facility]villeRviyjvjDHRKRUALP8277-20-35 04:28:00 Test Item Value Reference Range Interpretation Comments Bili Total (test code = Bili Total) 0.5 0.2-1.3 N [facility]villePyoqlobIWZVQOXKS1841-45-62 04:28:00 Test Item Value Reference Range Interpretation Comments Alk Phos (test code = Alk Phos) 89 39-136 N [facility] [place]villeYnmxtupMNTSVCPWR5874-55-17 04:28:00 Test Item Value Reference Range Interpretation Comments ALANINE AMINOTRANSFERASE 11 See_Comment N [A utomated message] (test code = ALANINE The sys tem which AMINOTRANSFERASE) generated this result transmitted ref erence range: <=65. Th e reference range was not used to int erpret this result as normal/abnormal . [facility]villeUvesaqtMRCEFUVFO3814-74-53 04:28:00 Test Item Value Reference Range Interpretation Comments Creatinine Lvl (test code = Creatinine 0.5 0.5-1.4 N Lvl) [facility]villeMncwrzlCXYOLSVVN8278-74-43 04:28:00 Test Item Value Reference Range Interpretation Comments BUN (test code = BUN) 3 7-22 L [facility]villeUwkmjbnPYRWRLIVM3159-15-84 04:28:00 Test Item Value Reference Range Interpretation Comments Glucose Lvl (test code = Glucose Lvl) 255 70-99 H [facility] [place]villeQxyujzhLIQLMEJUX3681-09-45 04:28:00 Test Item Value Reference Range Interpretation Comments Total Protein (test code = Total 7.0 6.4-8.4 N Protein) [facility]villeKttwnmiLLFXQAZFC3557-96-59 04:28:00 Test Item Value Reference Range Interpretation Comments Calcium Lvl (test code = Calcium Lvl) 8.7 8.5-10.5 N [facility]villeJgwkoquJDYQSBDYQ5340-98-57 04:28:00 Test Item Value Reference Range Interpretation Comments CO2 (test code = CO2) 29 24-32 N [facility] [place]villeBcsijyjKOEKZGABB2426-95-98 04:28:00 Test Item Value Reference Range Interpretation Comments Chloride Lvl (test code = Chloride Lvl) 104 95-109 N [facility]villeYnzbenaLHXZZXEGK7326-66-23 04:28:00 Test Item Value Reference Range Interpretation Comments Potassium Lvl (test code = Potassium 3.5 3.5-5.1 N Lvl) [facility]villeOqdpnfoPMYKRDJMA4070-32-41 04:28:00 Test Item Value Reference Range Interpretation Comments Sodium Lvl (test code = Sodium Lvl) 140 135-145 N [facility] CenterZgioolqEDKXEXOVCN2592-93-81 04:28:00 Test Item Value Reference Range Interpretation Comments PROTIME (test code = PROTIME) 12.1 s 12.0-14.7 N [facility] CenterTuigequUKSGSPEEMF6788-35-62 04:28:00 Test Item Value Reference Range Interpretation Comments aPTT (test code = aPTT) 39.0 s 22.9-35.8 H [facility] CenterBbfawylSKVIIFVOGG6513-77-50 04:28:00 Test Item Value Reference Range Interpretation Comments INR (test code = INR) 0.90 0.85-1.17 N [facility] CenterXcxxiviISQSCJRBIU6071-65-21 04:28:00 Test Item Value Reference Range Interpretation Comments MCH (test code = MCH) 29.4 pg 27.0-31.0 N [facility] CenterFatwzefFLBCZRUVBF6652-08-76 04:28:00 Test Item Value Reference Range Interpretation Comments MCV (test code = MCV) 86.1 81.0-99.0 N [facility] CenterRccpljvZAWDQBSMPO4065-75-62 04:28:00 Test Item Value Reference Range Interpretation Comments Hct (test code = Hct) 29.4 36.0-48.0 L [facility] CenterQcvfcfnDCHQLVPWJJ7328-59-04 04:28:00 Test Item Value Reference Range Interpretation Comments RDW (test code = RDW) 14.0 11.5-14.5 N [facility] CenterGuirddmCCTVWWVWZV9541-16-88 04:28:00 Test Item Value Reference Range Interpretation Comments WBC X 10x3 (test code = WBC X 10x3) 6.2 3.7-10.4 N [facility] CenterNdgmueaUEUFMPWLEB9713-46-71 04:28:00 Test Item Value Reference Range Interpretation Comments Platelet (test code = Platelet) 178 133-450 N [facility] CenterIijwmnqMNYOWECXYZ3279-58-78 04:28:00 Test Item Value Reference Range Interpretation Comments MCHC (test code = MCHC) 34.1 32.0-36.0 N [facility] CenterTwzqlsfBFYJPJOCVK5355-46-43 04:28:00 Test Item Value Reference Range Interpretation Comments RBC X 10x6 (test code = RBC X 10x6) 3.41 4.20-5.40 L [facility] CenterUbpsbsmYOVFZAMLNW2925-48-18 04:28:00 Test Item Value Reference Range Interpretation Comments Hgb (test code = Hgb) 10.0 12.0-16.0 L [facility] CenterAqdtglqOLMIPXYCXG6725-54-45 04:28:00 Test Item Value Reference Range Interpretation Comments MPV (test code = MPV) 10.1 7.4-10.4 N [facility] CenterDiwtjowKNOTVWXWEV0208-13-59 04:28:00 Test Item Value Reference Range Interpretation Comments Segs-Bands # (test code = Segs-Bands #) 4.4 1.5-8.1 N [facility] CenterVikrmnfDNTMDKDYBA8800-30-84 04:28:00 Test Item Value Reference Range Interpretation Comments Basophils (test code = 0.7 See_Comment N [Aut omated message] The Basophils) system which ge nerated this result tra nsmitted reference range : <=1.0. The reference r leo was not used to int erpret this result as normal/abnormal . [facility] CenterOhcibfbRZDAQNEPTD2388-02-25 04:28:00 Test Item Value Reference Range Interpretation Comments Segs (test code = Segs) 70.7 45.0-75.0 N [facility] CenterWefvfxlTZPUHZDQJZ6509-06-36 04:28:00 Test Item Value Reference Range Interpretation Comments Monocytes # (test code 0.3 See_Comment N [Aut omated message] The = Monocytes #) system which generated this result tra nsmitted reference range : <=0.8. The reference r leo was not used to int erpret this result as normal/abnormal . [facility]XdcflgoEVQPJMENEX3850-50-17 04:28:00 Test Item Value Reference Range Interpretation Comments Lymphocytes # (test code = Lymphocytes 1.2 1.0-5.5 N #) [facility] CenterZqndssnPOIUKCMCCX2839-16-82 04:28:00 Test Item Value Reference Range Interpretation Comments Monocytes (test code = Monocytes) 4.5 2.0-12.0 N [facility] CenterSqtwunoXBGMAHZQIK1029-39-92 04:28:00 Test Item Value Reference Range Interpretation Comments Eosinophils (test code = 4.1 See_Comment H [A utomated message] The Eosinophils) system which ge nerated this result tra nsmitted reference range : <=4.0. The reference r leo was not used to int erpret this result as normal/abnormal . [facility] CenterEoxqzseNYVLBVURFY2456-13-04 04:28:00 Test Item Value Reference Range Interpretation Comments Lymphocytes (test code = Lymphocytes) 20.0 20.0-40.0 N [facility] CenterHgewlksVIDSHMFGIP2966-51-58 04:28:00 Test Item Value Reference Range Interpretation Comments Basophils # (test code 0.0 See_Comment N [Aut omated message] The = Basophils #) system which generated this result tra nsmitted reference range : <=0.2. The reference r leo was not used to int erpret this result as normal/abnormal . [facility] CenterJavubxwQZJLSCAMWD5597-40-80 04:28:00 Test Item Value Reference Range Interpretation Comments Eosinophils # (test code 0.3 See_Comment N [A utomated message] The = Eosinophils #) system whic h generated this result tra nsmitted reference range : <=0.5. The reference r leo was not used to int erpret this result as normal/abnormal . [facility] GLUCOSE GIMVDFN1852-31-48 01:12:00 Test Item Value Reference Range Interpretation Comments Gluc POC Lifscn (test code = Gluc POC 260 70-99 H Lifscn) [facility] GLUCOSE NUPEHGM5792-91-52 01:12:00 Test Item Value Reference Range Interpretation Comments Comment1 (test code = Comment1) [facility]avi [facility]/MD [facility]SopdprrFBAXKNYVIE4903-15-69 23:40:00 Test Item Value Reference Range Interpretation Comments UA Protein (test code = Trace A UA Protein) *ABN*(03/14/2012 18:40:00) [facility] CenterFbopuzqJDYSGYKGCR6864-46-33 23:40:00 Test Item Value Reference Range Interpretation Comments UA pH (test code = UA pH) 6.0 1 5.0-8.0 N [facility] CenterOnusumhGYLHIXRQRZ3723-35-78 23:40:00 Test Item Value Reference Range Interpretation Comments UA Ketones (test code = >=80 mg/dL UA Ketones) *NA*(03/14/2012 18:40:00) [facility] CenterTonpvyxPQNDSNHTXS1695-93-82 23:40:00 Test Item Value Reference Range Interpretation Comments UA Glucose (test code = >=1000 mg/dL A UA Glucose) *ABN*(03/14/2012 18:40:00) [facility] CenterDugusvhUGGDBPZTWG5706-56-39 23:40:00 Test Item Value Reference Range Interpretation Comments UA Blood (test code = Negative (03/14/2012 N UA Blood) 18:40:00) [facility] HospitalXzmbpgkJXKETKUFNA5171-39-45 23:40:00 Test Item Value Reference Range Interpretation Comments UA Nitrite (test code Negative (03/14/2012 N = UA Nitrite) 18:40:00) [facility] HospitalEwkooutLZTUMDAGYA6933-09-29 23:40:00 Test Item Value Reference Range Interpretation Comments UA Urobilinogen (test code = UA 0.2 0.1-1.0 N Urobilinogen) [facility] HospitalUtczgxnWGGQZDRNUD6255-85-91 23:40:00 Test Item Value Reference Range Interpretation Comments UA Leuk Est (test Negative (03/14/2012 N code = UA Leuk Est) 18:40:00) [facility] HospitalFwyhxueWRAXXNBYUW1499-97-50 23:40:00 Test Item Value Reference Range Interpretation Comments UA Bili (test code = Negative *NA*(03/14/2012 UA Bili) 18:40:00) [facility] CenterYdmbeukBCUDOLDEPI1161-45-83 23:40:00 Test Item Value Reference Range Interpretation Comments UA Turbidity (test code = Clear (03/14/2012 N UA Turbidity) 18:40:00) [facility]EwzpfooIVVCKRBNQW8338-40-66 23:40:00 Test Item Value Reference Range Interpretation Comments UA Color (test code = Yellow *NA*(03/14/2012 UA Color) 18:40:00) [facility] CenterLjnazkeDWDYTAGBNJ2461-20-39 23:40:00 Test Item Value Reference Range Interpretation Comments UA Spec Grav (test >=1.030 A code = UA Spec Grav) *ABN*(03/14/2012 18:40:00) [facility] CenterWpigzamNMBHOEKUIU7785-14-58 23:40:00 Test Item Value Reference Range Interpretation Comments UA Sq Epi (test code Occasional /LPF N = UA Sq Epi) (03/14/2012 18:40:00) [facility] CenterYedrqjzVLZOPXARGU1390-86-19 23:40:00 Test Item Value Reference Range Interpretation Comments UA WBC (test code = UA 3-5 /HPF (03/14/2012 N WBC) 18:40:00) [facility] CenterAxhipteTSHQJZNUAO3878-35-97 23:40:00 Test Item Value Reference Range Interpretation Comments UA Bacteria (test code Occasional /HPF N = UA Bacteria) (03/14/2012 18:40:00) [facility]NgqahmqZOKKSQVVH5928-89-89 22:50:00 Test Item Value Reference Range Interpretation Comments S Preg (test code = S Negative *NA*(03/14/2012 Preg) 17:50:00) [facility] [place]XnpkkiqUIEMPZZOE4010-15-02 22:50:00 Test Item Value Reference Range Interpretation Comments Lipase Lvl (test code = Lipase Lvl) 45 73-393 L [facility] [place]villeYnhywezFWHODSBAB7691-06-31 22:50:00 Test Item Value Reference Range Interpretation Comments A/G Ratio (test code = A/G Ratio) 1.2 0.7-1.6 N [facility] [place]villeSjwqlyrILHCFOTQP4297-91-20 22:50:00 Test Item Value Reference Range Interpretation Comments Globulin (test code = Globulin) 3.8 2.0-4.0 N [facility] [place]villePdiubmoMVPNYAKBB3829-37-89 22:50:00 Test Item Value Reference Range Interpretation Comments B/C Ratio (test code = B/C Ratio) 21 6-25 N [facility] [place]villeOxeuyexEZKNHNJPT3671-33-65 22:50:00 Test Item Value Reference Range Interpretation Comments AGAP (test code = AGAP) 16.8 10.0-20.0 N [facility] [place]villeSlklzcgMQWNJDOGC2619-90-50 22:50:00 Test Item Value Reference Range Interpretation Comments Bili Total (test code = Bili Total) 1.1 0.2-1.3 N [facility] [place]villeZdrxgshKUVSIZPJL0270-03-47 22:50:00 Test Item Value Reference Range Interpretation Comments Total Protein (test code = Total 8.2 6.4-8.4 N Protein) [facility] [place]villeZxthozjWZYTRHRNH2733-88-94 22:50:00 Test Item Value Reference Range Interpretation Comments Potassium Lvl (test code = Potassium 3.8 3.5-5.1 N Lvl) [facility] [place]villeTmmmblyAEWWUUBSO0495-21-91 22:50:00 Test Item Value Reference Range Interpretation Comments Creatinine Lvl (test code = Creatinine 0.7 0.5-1.4 N Lvl) [facility] [place]villeTttapiuVRRHGNDDO7005-76-06 22:50:00 Test Item Value Reference Range Interpretation Comments Sodium Lvl (test code = Sodium Lvl) 139 135-145 N [facility] [place]villeSmbnsrjXRVQQJPOZ3269-11-05 22:50:00 Test Item Value Reference Range Interpretation Comments Chloride Lvl (test code = Chloride Lvl) 99 95-109 N [facility] [place]villeRelqmwpFHGWVZOYM3973-54-34 22:50:00 Test Item Value Reference Range Interpretation Comments CO2 (test code = CO2) 27 24-32 N [facility] [place]villeSypluyqVPUQMWPEE9967-73-25 22:50:00 Test Item Value Reference Range Interpretation Comments Glucose Lvl (test code = Glucose Lvl) 301 70-99 H [facility] [place]villeNiesykgDEZIJRQSZ6815-00-15 22:50:00 Test Item Value Reference Range Interpretation Comments BUN (test code = BUN) 15 7-22 N [facility] [place]villeHejuhozJUKXVFONS0054-19-13 22:50:00 Test Item Value Reference Range Interpretation Comments ALT (test code = ALT) 24 See_Comment N [Auto mated message] The system which ge nerated this result transmit rohit reference range : <=65. The reference range was not used to interpr et this result as reji l/abnormal. [facility] [place]villeZhfofrvSLTAIXBHF2882-66-97 22:50:00 Test Item Value Reference Range Interpretation Comments AST (test code = AST) 20 See_Comment N [Auto mated message] The system which ge nerated this result transmit rohit reference range : <=37. The reference range was not used to interpr et this result as reji l/abnormal. [facility] [place]villeKzzgypwSEIHFIUWJ3068-48-14 22:50:00 Test Item Value Reference Range Interpretation Comments Alk Phos (test code = Alk Phos) 67 39-136 N [facility] [place]villeTwkmutvSVKSYJTXC7431-52-72 22:50:00 Test Item Value Reference Range Interpretation Comments Albumin Lvl (test code = Albumin Lvl) 4.4 3.5-5.0 N [facility] [place]villeLfyuvhfPHNPRKBAO9902-30-17 22:50:00 Test Item Value Reference Range Interpretation Comments Calcium Lvl (test code = Calcium Lvl) 9.9 8.5-10.5 N [facility] CenterYzwitwdDDOJGUVVGN6738-44-21 22:50:00 Test Item Value Reference Range Interpretation Comments MPV (test code = MPV) 11.8 7.4-10.4 H [facility] CenterExloaiyCFSJRHSZQK2259-52-87 22:50:00 Test Item Value Reference Range Interpretation Comments MCHC (test code = MCHC) 35.9 32.0-36.0 N [facility] CenterHmqqzrgBJSAACHVAY6772-89-73 22:50:00 Test Item Value Reference Range Interpretation Comments MCH (test code = MCH) 31.2 pg 27.0-31.0 H [facility] CenterMhcitieTJULFQJEJO3153-74-50 22:50:00 Test Item Value Reference Range Interpretation Comments Platelet (test code = Platelet) 189 133-450 N [facility] CenterRfsrazdFITZUVJOFE3788-65-10 22:50:00 Test Item Value Reference Range Interpretation Comments RDW (test code = RDW) 13.1 11.5-14.5 N [facility] CenterVadvzxqBOGIQMZPSG8539-85-78 22:50:00 Test Item Value Reference Range Interpretation Comments Hct (test code = Hct) 40.7 36.0-48.0 N [facility] CenterCgvuvpcJUFIUAEHNT2688-95-99 22:50:00 Test Item Value Reference Range Interpretation Comments Hgb (test code = Hgb) 14.6 12.0-16.0 N [facility] CenterNilghaeZVZYMTFTFC4856-37-31 22:50:00 Test Item Value Reference Range Interpretation Comments MCV (test code = MCV) 87.0 81.0-99.0 N [facility] CenterHzmhqtfOYZXYVAUMF4713-60-83 22:50:00 Test Item Value Reference Range Interpretation Comments WBC (test code = WBC) 11.7 3.7-10.4 H [facility] CenterMxrcnnmWGTWKESAZL0544-82-71 22:50:00 Test Item Value Reference Range Interpretation Comments RBC (test code = RBC) 4.68 4.20-5.40 N [facility] CenterJglwnbmZCEQEWUJMZ5132-39-01 22:50:00 Test Item Value Reference Range Interpretation Comments Basophils # (test code 0.0 See_Comment N [Aut omated message] The = Basophils #) system which generated this result tra nsmitted reference range : <=0.2. The reference r leo was not used to int erpret this result as normal/abnormal . [facility] CenterFlavsovYHUSSCMLHO6827-86-35 22:50:00 Test Item Value Reference Range Interpretation Comments Basophils (test code = 0.2 See_Comment N [Aut omated message] The Basophils) system which ge nerated this result tra nsmitted reference range : <=1.0. The reference r leo was not used to int erpret this result as normal/abnormal . [facility] CenterGfkmtitFZSMBMPEGR1396-49-81 22:50:00 Test Item Value Reference Range Interpretation Comments Eosinophils # (test code 0.0 See_Comment N [A utomated message] The = Eosinophils #) system [facility] h generated this result tra nsmitted reference range : <=0.5. The reference r leo was not used to int erpret this result as normal/abnormal . [facility] CenterPjtzkckIPODQZELRB2832-80-71 22:50:00 Test Item Value Reference Range Interpretation Comments Monocytes # (test code 0.4 See_Comment N [Aut omated message] The = Monocytes #) system which generated this result tra nsmitted reference range : <=0.8. The reference r leo was not used to int erpret this result as normal/abnormal . [facility] CenterFheywgnOIEKLBQQDN0791-03-50 22:50:00 Test Item Value Reference Range Interpretation Comments Segs-Bands # (test code = Segs-Bands #) 10.6 1.5-8.1 H [facility] CenterTwzxazpREWYDEELWZ7609-58-74 22:50:00 Test Item Value Reference Range Interpretation Comments Lymphocytes # (test code = Lymphocytes 0.7 1.0-5.5 L #) [facility] CenterRkkkgqgQBLGCHNIOX9651-11-34 22:50:00 Test Item Value Reference Range Interpretation Comments Monocytes (test code = Monocytes) 3.4 2.0-12.0 N [facility] CenterVgplwazQAFGNWIPVE8324-65-23 22:50:00 Test Item Value Reference Range Interpretation Comments Plt Morph (test code = Normal (03/14/2012 N Plt Morph) 17:50:00) [facility] CenterXsviycxVHVEVSDRGL6750-51-25 22:50:00 Test Item Value Reference Range Interpretation Comments Lymphocytes (test code = Lymphocytes) 6.0 20.0-40.0 L [facility] CenterVbepdpvJRVFYBEQBX7945-44-67 22:50:00 Test Item Value Reference Range Interpretation Comments Eosinophils (test code = 0.0 See_Comment N [A utomated message] The Eosinophils) system which ge nerated this result tra nsmitted reference range : <=4.0. The reference r leo was not used to int erpret this result as normal/abnormal . [facility] CenterRnvhfakGKVQUKMMTD3227-85-16 22:50:00 Test Item Value Reference Range Interpretation Comments Segs (test code = Segs) 90.4 45.0-75.0 H [facility] CenterLggxevkPQHNAAFQAY9317-56-22 22:50:00 Test Item Value Reference Range Interpretation Comments RBC Morph (test code = Normal (03/14/2012 N RBC Morph) 17:50:00) [facility] GLUCOSE MDWWDRL8545-59-43 23:43:00 Test Item Value Reference Range Interpretation Comments Gluc POC Lifscn (test code = Gluc POC 167 70-99 H Lifscn) [facility] GLUCOSE WDIOPGD5008-04-29 23:43:00 Test Item Value Reference Range Interpretation Comments Comment1 (test code = Comment1) Notify RN/ [facility] GLUCOSE YXBBMHF1742-88-24 23:43:00 Test Item Value Reference Range Interpretation Comments Comment2 (test code = Comment2) Sliding Scale [facility] GLUCOSE DCMUBXS3161-72-74 17:40:00 Test Item Value Reference Range Interpretation Comments Gluc POC Lifscn (test code = Gluc POC 189 70-99 H Lifscn) [facility] GLUCOSE IKPAUAU3984-84-21 17:40:00 Test Item Value Reference Range Interpretation Comments Comment1 (test code = Comment1) Notify TABATHA/ [facility] GLUCOSE TFWZRQZ2353-34-94 17:40:00 Test Item Value Reference Range Interpretation Comments Comment2 (test code = Comment2) Sliding Scale [facility] GLUCOSE ODJERFR9771-92-66 13:34:00 Test Item Value Reference Range Interpretation Comments Comment2 (test code = Comment2) Sliding Scale [facility] GLUCOSE ATVANQY1368-78-15 13:34:00 Test Item Value Reference Range Interpretation Comments Gluc POC Lifscn (test code = Gluc POC 110 70-99 H Lifscn) [facility] GLUCOSE QJSZJZS1032-97-08 13:34:00 Test Item Value Reference Range Interpretation Comments Comment1 (test code = Comment1) [facility]HA[facility]JpqqrlpFYPRMAFQX4842-87-93 00:00:00 Test Item Value Reference Range Interpretation Comments U Preg (test code = U Negative (11/28/2011 N Preg) 19:00:00) [facility] CenterNdmsdkuTXSWQRFEYF2572-97-14 00:00:00 Test Item Value Reference Range Interpretation Comments Micro? (test code = Performed (11/28/2011 N Micro?) 19:00:00) [facility] HospitalAbtjzssCCWNOGEYHS0552-68-84 00:00:00 Test Item Value Reference Range Interpretation Comments UA Sq Epi (test code Occasional /LPF N = UA Sq Epi) (11/28/2011 19:00:00) [facility] HospitalLslgbfrTEQTUBNEYE2552-51-47 00:00:00 Test Item Value Reference Range Interpretation Comments UA RBC (test None Seen See_Comment N [Automated mes pastor] code = UA RBC) (11/28/2011 The system wh ich 19:00:00) generated this result transmitted ref erence range: <=2. The reference range was not used to int erpret this result as normal/abnormal . [facility] HospitalEypwcsdUSBKYBNSTP1396-51-53 00:00:00 Test Item Value Reference Range Interpretation Comments UA WBC (test code Occasional See_Comment [Automate d message] The = UA WBC) system which ge nerated this result tra nsmitted reference range : <=5. The reference range was not used to interpr et this result as normal/abnormal . [facility] CenterIaqjueqOTHMZBOQDE6111-59-78 00:00:00 Test Item Value Reference Range Interpretation Comments UA Protein (test code Negative mg/dL N = UA Protein) (11/28/2011 19:00:00) [facility] CenterSpsmxejAXGHYXXHYU2632-25-63 00:00:00 Test Item Value Reference Range Interpretation Comments UA pH (test code = UA pH) 7.0 1 5.0-8.0 N [facility] CenterRrtzousCSMRWHSHIM0289-80-21 00:00:00 Test Item Value Reference Range Interpretation Comments UA Spec Grav (test code = UA Spec 1.020 1 N Grav) [facility] CenterYjfqokfAGMZWZXOGJ5528-57-79 00:00:00 Test Item Value Reference Range Interpretation Comments UA Turbidity (test code = Clear (11/28/2011 N UA Turbidity) 19:00:00) [facility] CenterObjgadjGEHYKOGCVV7986-43-68 00:00:00 Test Item Value Reference Range Interpretation Comments UA Color (test code = Yellow *NA*(11/28/2011 UA Color) 19:00:00) [facility] CenterXosmmtxIIYGOMMDOD2935-85-04 00:00:00 Test Item Value Reference Range Interpretation Comments UA Urobilinogen (test code = UA 0.2 0.1-1.0 N Urobilinogen) [facility] CenterCopyohoUEOFBKQPFH5537-06-34 00:00:00 Test Item Value Reference Range Interpretation Comments UA Blood (test code = Negative (11/28/2011 N UA Blood) 19:00:00) [facility] HospitalGsrojtiJMRRBSKYUN2738-79-42 00:00:00 Test Item Value Reference Range Interpretation Comments UA Bili (test code = Negative *NA*(11/28/2011 UA Bili) 19:00:00) [facility] CenterPwngeaqRSUJPYJJTQ3702-94-70 00:00:00 Test Item Value Reference Range Interpretation Comments UA Ketones (test code = >=80 mg/dL A UA Ketones) *ABN*(11/28/2011 19:00:00) [facility] CenterTuayiewNMDJCJQZAC8383-70-71 00:00:00 Test Item Value Reference Range Interpretation Comments UA Glucose (test code = >=1000 mg/dL A UA Glucose) *ABN*(11/28/2011 19:00:00) [facility] HospitalYoflmnuUARLMUSKVH1265-77-03 00:00:00 Test Item Value Reference Range Interpretation Comments UA Nitrite (test code Negative (11/28/2011 N = UA Nitrite) 19:00:00) [facility] HospitalRodtxdjCSBQDRGHLC9334-45-71 00:00:00 Test Item Value Reference Range Interpretation Comments UA Leuk Est (test Negative (11/28/2011 N code = UA Leuk Est) 19:00:00) [facility] HospitalRgnxcyzUVVWPXYGV5262-75-90 20:41:00 Test Item Value Reference Range Interpretation Comments pO2 Roberth (test code = pO2 Roberth) 60 20-49 H [facility]villePticywcRTVNDCMCB8999-46-50 20:41:00 Test Item Value Reference Range Interpretation Comments pCO2 Roberth (test code = pCO2 Roberth) 41 38-52 N [facility] [place]villeFvjjynlMESMLKWNY6505-12-67 20:41:00 Test Item Value Reference Range Interpretation Comments pH Roberth (test code = pH Roberth) 7.45 7.28-7.42 H [facility] [place]villeYntxpboWGPGUVMKU4791-74-99 20:41:00 Test Item Value Reference Range Interpretation Comments Temp Roberth (test code = Temp Roberth) 37.0 [facility]villeIrgpcziYABJTLVQJ2144-33-14 20:41:00 Test Item Value Reference Range Interpretation Comments O2 Sat Roberth (test code = O2 Sat Roberth) 92.0 40.0-70.0 H [facility] [place]villeAzednbmZHYLQBSRZ7306-16-15 20:41:00 Test Item Value Reference Range Interpretation Comments BE Roberth (test code = 4 See_Comment H [Automa rohit message] The BE Roberth) system which ge nerated this result transmit rohit reference range : <=2. The reference range was not used to interpr et this result as reji l/abnormal. [facility]villeZhsbzewGDKQKLTOL5765-85-18 20:41:00 Test Item Value Reference Range Interpretation Comments HCO3 Roberth (test code = HCO3 Roberth) 28.5 22.0-26.0 H [facility] [place]villeTkzseahZSJBQDBYI0947-91-95 20:00:00 Test Item Value Reference Range Interpretation Comments Lactic Acid Lvl (test code = Lactic 1.6 0.5-2.2 N Acid Lvl) [facility]villeFexzzimPTXRBXSAU5290-80-12 20:00:00 Test Item Value Reference Range Interpretation Comments Lipase Lvl (test code = Lipase Lvl) 125 73-393 N [facility] [place]villePflpkojTZUDIVIAA3700-79-20 20:00:00 Test Item Value Reference Range Interpretation Comments Albumin Lvl (test code = Albumin Lvl) 4.2 3.5-5.0 N [facility] [place]villeWybailxGRNMHACIF3641-54-22 20:00:00 Test Item Value Reference Range Interpretation Comments CO2 (test code = CO2) 23 24-32 L [facility] BrownsvilleBbyhsmuKYGNOPFXI7801-19-60 20:00:00 Test Item Value Reference Range Interpretation Comments Chloride Lvl (test code = Chloride Lvl) 98 95-109 N [facility] [place]villeYxniftzFLXANVHZW9803-41-57 20:00:00 Test Item Value Reference Range Interpretation Comments Potassium Lvl (test code = Potassium 3.8 3.5-5.1 N Lvl) [facility] [place]villeTnnvpkhEEUPDRVKC4650-09-45 20:00:00 Test Item Value Reference Range Interpretation Comments Sodium Lvl (test code = Sodium Lvl) 138 135-145 N [facility] [place]villeIdsyxuqMAZWVWPPA6244-60-06 20:00:00 Test Item Value Reference Range Interpretation Comments Creatinine Lvl (test code = Creatinine 0.7 0.5-1.4 N Lvl) [facility] [place]villeAinwseqKMLOTTCKQ0605-32-68 20:00:00 Test Item Value Reference Range Interpretation Comments BUN (test code = BUN) 9 7-22 N [facility] [place]villeIhvwmauDIRYBQTMS3721-35-00 20:00:00 Test Item Value Reference Range Interpretation Comments Glucose Lvl (test code = Glucose Lvl) 269 70-99 H [facility] [place]villeWgboawdKJDBIKUAK0319-56-83 20:00:00 Test Item Value Reference Range Interpretation Comments B/C Ratio (test code = B/C Ratio) 13 6-25 N [facility] [place]villeYjckpalVMJAQMXAX6178-51-21 20:00:00 Test Item Value Reference Range Interpretation Comments AGAP (test code = AGAP) 20.8 10.0-20.0 H [facility] [place]villeKxhpxccZPVKMFICZ2442-29-58 20:00:00 Test Item Value Reference Range Interpretation Comments Calcium Lvl (test code = Calcium Lvl) 9.3 8.5-10.5 N [facility] [place]villeHwmlxlxYCOAGMBRA2996-54-50 20:00:00 Test Item Value Reference Range Interpretation Comments Total Protein (test code = Total 6.7 6.4-8.4 N Protein) [facility] [place]villeWqevfanZBMAMLPUI3649-72-37 20:00:00 Test Item Value Reference Range Interpretation Comments A/G Ratio (test code = A/G Ratio) 1.7 0.7-1.6 H [facility] [place]villeKvzrddyDGEWSLDCF4847-69-68 20:00:00 Test Item Value Reference Range Interpretation Comments Globulin (test code = Globulin) 2.5 2.0-4.0 N [facility] BrownsvilleRjwefawOSBHVEZHQ4272-97-20 20:00:00 Test Item Value Reference Range Interpretation Comments AST (test code = AST) 18 See_Comment N [Auto mated message] The system which ge nerated this result transmit rohit reference range : <=37. The reference range was not used to interpr et this result as reji l/abnormal. [facility] [place]villeSiofilcZPSQBFXHJ7920-66-82 20:00:00 Test Item Value Reference Range Interpretation Comments Alk Phos (test code = Alk Phos) 62 39-136 N [facility] BrownsvilleDgmwrqxRLSIQSQMO6279-81-09 20:00:00 Test Item Value Reference Range Interpretation Comments ALT (test code = ALT) 32 See_Comment N [Auto mated message] The system which ge nerated this result transmit rohit reference range : <=65. The reference range was not used to interpr et this result as reji l/abnormal. [facility]UcveimuIKNLJTSCC8197-09-48 20:00:00 Test Item Value Reference Range Interpretation Comments Bili Total (test code = Bili Total) 0.7 0.2-1.3 N [facility] CenterFxowjjrWKIRISVAAZ5268-50-76 20:00:00 Test Item Value Reference Range Interpretation Comments Anisocyte (test code = 1+ *ABN*(11/28/2011 A Anisocyte) 15:00:00) [facility] CenterEfknsicCIHTFWAGVZ1646-25-60 20:00:00 Test Item Value Reference Range Interpretation Comments Monocytes # (test code 0.1 See_Comment N [Aut omated message] The = Monocytes #) system which generated this result tra nsmitted reference range : <=0.8. The reference r leo was not used to int erpret this result as normal/abnormal . [facility] CenterGlwegqnGNXBNCECLL6243-50-88 20:00:00 Test Item Value Reference Range Interpretation Comments Eosinophils # (test code 0.0 See_Comment N [A utomated message] The = Eosinophils #) system whic h generated this result tra nsmitted reference range : <=0.5. The reference r leo was not used to int erpret this result as normal/abnormal . [facility] CenterPooxxwiYTBLAZMCBV7050-19-06 20:00:00 Test Item Value Reference Range Interpretation Comments Basophils # (test code 0.0 See_Comment N [Aut omated message] The = Basophils #) system which generated this result tra nsmitted reference range : <=0.2. The reference r leo was not used to int erpret this result as normal/abnormal . [facility] CenterCxckkdzDFRSKHSRIA2492-97-89 20:00:00 Test Item Value Reference Range Interpretation Comments Neut Vac (test code = Slight *ABN*(11/28/2011 A Neut Vac) 15:00:00) [facility] CenterAohjfifKFFNCCNXKQ5275-50-37 20:00:00 Test Item Value Reference Range Interpretation Comments Large Plt (test code = Slight *ABN*(11/28/2011 A Large Plt) 15:00:00) [facility] CenterGgotbbmYAYYMOPWTX4889-39-37 20:00:00 Test Item Value Reference Range Interpretation Comments Segs-Bands # (test code = Segs-Bands #) 5.7 1.5-8.1 N [facility] CenterLlbhykzAXDGWIRLLO2282-82-74 20:00:00 Test Item Value Reference Range Interpretation Comments Lymphocytes # (test code = Lymphocytes 0.8 1.0-5.5 L #) [facility] CenterLmaohvdUVJOSCHMGZ4032-81-61 20:00:00 Test Item Value Reference Range Interpretation Comments Eosinophils (test code = 0.2 See_Comment N [A utomated message] The Eosinophils) system which ge nerated this result tra nsmitted reference range : <=4.0. The reference r leo was not used to int erpret this result as normal/abnormal . [facility] CenterBmotbgpAEPJIXGKTR7974-35-34 20:00:00 Test Item Value Reference Range Interpretation Comments Basophils (test code = 0.0 See_Comment N [Aut omated message] The Basophils) system which ge nerated this result tra nsmitted reference range : <=1.0. The reference r leo was not used to int erpret this result as normal/abnormal . [facility] CenterJjgkfzxQNVNUKGWZU4982-52-86 20:00:00 Test Item Value Reference Range Interpretation Comments Monocytes (test code = Monocytes) 1.9 2.0-12.0 L [facility] CenterMyoqejdRHBXHJPZJY6078-54-06 20:00:00 Test Item Value Reference Range Interpretation Comments Segs (test code = Segs) 86.2 45.0-75.0 H [facility] CenterZpbbkybZQLJVARYBZ5499-82-52 20:00:00 Test Item Value Reference Range Interpretation Comments Lymphocytes (test code = Lymphocytes) 11.7 20.0-40.0 L [facility] CenterGmqbqihEOFVCBWQUE0582-58-29 20:00:00 Test Item Value Reference Range Interpretation Comments MPV (test code = MPV) 10.8 7.4-10.4 H [facility] CenterHkvegrvRBGKLJZVWY7766-14-63 20:00:00 Test Item Value Reference Range Interpretation Comments Platelet (test code = Platelet) 161 133-450 N [facility] CenterUjkecexEVPIHWVQEV7323-79-41 20:00:00 Test Item Value Reference Range Interpretation Comments MCHC (test code = MCHC) 35.6 32.0-36.0 N [facility] CenterQwkwffuJXEOGOCJEX7632-18-00 20:00:00 Test Item Value Reference Range Interpretation Comments RDW (test code = RDW) 12.4 11.5-14.5 N [facility] CenterXojkcxxXJDWSZQJOU0512-49-60 20:00:00 Test Item Value Reference Range Interpretation Comments MCH (test code = MCH) 30.7 pg 27.0-31.0 N [facility] CenterYvqxsfxLOOHXHELYG4438-47-32 20:00:00 Test Item Value Reference Range Interpretation Comments MCV (test code = MCV) 86.1 81.0-99.0 N [facility] CenterRwxqgadLDYQGPJCWK2789-86-64 20:00:00 Test Item Value Reference Range Interpretation Comments Hct (test code = Hct) 33.6 36.0-48.0 L [facility] CenterKsrrlvyVRMLCPYNXB6879-43-42 20:00:00 Test Item Value Reference Range Interpretation Comments Hgb (test code = Hgb) 12.0 12.0-16.0 N [facility] CenterLzxknbyXVKAUKRIYW0255-32-12 20:00:00 Test Item Value Reference Range Interpretation Comments RBC (test code = RBC) 3.90 4.20-5.40 L [facility] CenterYoazodzINRFWQUFJQ9426-71-07 20:00:00 Test Item Value Reference Range Interpretation Comments WBC (test code = WBC) 6.6 3.7-10.4 N [facility]IjbqyaeVTCVZKVBQ9423-56-82 19:51:00 Test Item Value Reference Range Interpretation Comments UDS Note (test code = See Note UDS Note) 5*NA*(11/28/2011 14:51:00) [facility]IhwxiltKFDCHOVFB9815-21-98 19:51:00 Test Item Value Reference Range Interpretation Comments U Phencyc Scr (test Negative code = U Phencyc Scr) *NA*(11/28/2011 14:51:00) [facility] [place]villeItsnoqlHLOQQHXXS1682-72-57 19:51:00 Test Item Value Reference Range Interpretation Comments U Kelly Scr (test code Negative *NA*(11/28/2011 = U Kelly Scr) 14:51:00) [facility]villeQxduxknYFGMDSMXF5116-05-44 19:51:00 Test Item Value Reference Range Interpretation Comments U Amph Scr (test code Negative *NA*(11/28/2011 = U Amph Scr) 14:51:00) [facility]KnlbrfhRGDZGZYVH6879-13-38 19:51:00 Test Item Value Reference Range Interpretation Comments U Opiate Scr (test Negative code = U Opiate Scr) *NA*(11/28/2011 14:51:00) [facility]villeDqzapbhFXXFNIRSM2432-98-36 19:51:00 Test Item Value Reference Range Interpretation Comments U Cocaine Scr (test Negative code = U Cocaine Scr) *NA*(11/28/2011 14:51:00) [facility] [place]villeIocnagtXJHNHOVFW3805-55-96 19:51:00 Test Item Value Reference Range Interpretation Comments U Cannab Scr (test Negative code = U Cannab Scr) *NA*(11/28/2011 14:51:00) [facility]villeZsmtzzqHWIDFVUUA4626-83-14 19:51:00 Test Item Value Reference Range Interpretation Comments U Benzodia Scr (test Negative code = U Benzodia Scr) *NA*(11/28/2011 14:51:00) [facility] GLUCOSE IHQGDGD3698-15-60 16:20:00 Test Item Value Reference Range Interpretation Comments Comment1 (test code = Comment1) Ravi MAYS/ [facility] GLUCOSE RHOHYMG6402-56-89 16:20:00 Test Item Value Reference Range Interpretation Comments Gluc POC Lifscn (test code = Gluc POC 328 70-99 H Lifscn) [facility]YqvoxguXCDUNPGGD5734-37-46 15:30:00 Test Item Value Reference Range Interpretation Comments U Preg (test code = U Negative (09/18/2011 N Preg) 10:30:00) [facility] HospitalPqxayydGJSUAPEXLG6710-24-05 15:30:00 Test Item Value Reference Range Interpretation Comments UA WBC (test code = UA None Seen (09/18/2011 N WBC) 10:30:00) [facility] HospitalQtcfzqsGOHVNXSWSF4252-55-06 15:30:00 Test Item Value Reference Range Interpretation Comments UA RBC (test None Seen See_Comment N [Automated mes pastor] code = UA RBC) (09/18/2011 The system wh ich 10:30:00) generated this result transmitted ref erence range: <=2. The reference range was not used to int erpret this result as normal/abnormal . [facility] HospitalDgbmsacIFKJTKQMDL4883-54-20 15:30:00 Test Item Value Reference Range Interpretation Comments UA Bacteria (test code = None Seen (09/18/2011 N UA Bacteria) 10:30:00) [facility] CenterAranutmZFFLLRRWLC3203-23-08 15:30:00 Test Item Value Reference Range Interpretation Comments UA Amorph Destiny (test Few /HPF A code = UA Amorph Destiny) *ABN*(09/18/2011 10:30:00) [facility] CenterHstwoszRYVJYCJCTU0824-26-86 15:30:00 Test Item Value Reference Range Interpretation Comments Micro? (test code = Performed (09/18/2011 N Micro?) 10:30:00) [facility] HospitalDgcnkwiHXUNTCHAGU8343-41-80 15:30:00 Test Item Value Reference Range Interpretation Comments UA Sq Epi (test code = Rare /LPF (09/18/2011 N UA Sq Epi) 10:30:00) [facility] HospitalEuxnkkcMHDZZPFPHM0115-54-23 15:30:00 Test Item Value Reference Range Interpretation Comments UA Ketones (test code = 15 mg/dL A UA Ketones) *ABN*(09/18/2011 10:30:00) [facility] HospitalBtxxenwOFABHUFLHK8707-49-70 15:30:00 Test Item Value Reference Range Interpretation Comments UA Glucose (test code = >=1000 mg/dL A UA Glucose) *ABN*(09/18/2011 10:30:00) [facility] CenterDciwpghWHNCQMYSTR9977-99-05 15:30:00 Test Item Value Reference Range Interpretation Comments UA Protein (test code = Trace A UA Protein) *ABN*(09/18/2011 10:30:00) [facility] CenterEnctgjnHHLHIUIXJM6620-78-13 15:30:00 Test Item Value Reference Range Interpretation Comments UA Urobilinogen (test code = UA 0.2 0.1-1.0 N Urobilinogen) [facility] CenterPheehzfDYHJTGSUIB0304-99-64 15:30:00 Test Item Value Reference Range Interpretation Comments UA Blood (test code = Negative (09/18/2011 N UA Blood) 10:30:00) [facility] CenterFwkdfraTUKXXPTTBB1947-90-99 15:30:00 Test Item Value Reference Range Interpretation Comments UA Bili (test code = Negative *NA*(09/18/2011 UA Bili) 10:30:00) [facility] CenterOzgbaqpBUIRTNCSOF3105-44-77 15:30:00 Test Item Value Reference Range Interpretation Comments UA Leuk Est (test Negative (09/18/2011 N code = UA Leuk Est) 10:30:00) [facility] CenterOeexmiiZSLCUBPDKV5223-74-76 15:30:00 Test Item Value Reference Range Interpretation Comments UA Nitrite (test code Negative (09/18/2011 N = UA Nitrite) 10:30:00) [facility] CenterIlqaxheWAVAJDMWSZ5405-27-96 15:30:00 Test Item Value Reference Range Interpretation Comments UA pH (test code = UA pH) 7.5 1 5.0-8.0 N [facility] CenterKniwfplFBDFZTBXXB8108-61-47 15:30:00 Test Item Value Reference Range Interpretation Comments UA Spec Grav (test code = UA Spec 1.010 1 N Grav) [facility] CenterAuglfotKSWEFJQJIA6953-21-11 15:30:00 Test Item Value Reference Range Interpretation Comments UA Turbidity (test code Slight Cloudy N = UA Turbidity) (09/18/2011 10:30:00) [facility] CenterDvclghvVBGRRBUMTB6029-68-08 15:30:00 Test Item Value Reference Range Interpretation Comments UA Color (test code = Yellow *NA*(09/18/2011 UA Color) 10:30:00) [facility]villeJvmtjvbADPAFPCYH5543-60-21 14:07:00 Test Item Value Reference Range Interpretation Comments Phosphorus (test code = Phosphorus) 4.4 2.5-4.5 N [facility]villeXnyzzgqJWGBOIZPV9799-28-11 14:07:00 Test Item Value Reference Range Interpretation Comments Magnesium Lvl (test code = Magnesium 1.6 1.8-2.4 L Lvl) [facility] JKGIFVH0482-86-77 14:01:00 Test Item Value Reference Range Interpretation Comments Gluc POC Lifscn (test code = Gluc POC no gt 70-99 A Lifscn) [facility]villeIcidmopIESJPTOVU4500-43-12 13:52:00 Test Item Value Reference Range Interpretation Comments pO2 Roberth (test code = pO2 Roberth) 24 20-49 N [facility]villeRubynhrZFNKRIZLS4661-20-59 13:52:00 Test Item Value Reference Range Interpretation Comments HCO3 Roberth (test code = HCO3 Roberth) 32.0 22.0-26.0 H [facility]villeFcsilhwDIKIROBLK2738-17-95 13:52:00 Test Item Value Reference Range Interpretation Comments pCO2 Roberth (test code = pCO2 Roberth) 44 38-52 N [facility]villeTszvohoDSREEHKQJ0177-47-38 13:52:00 Test Item Value Reference Range Interpretation Comments BE Roberth (test code = 7 See_Comment H [Automa rohit message] The BE Roberth) system which ge nerated this result transmit rohit reference range : <=2. The reference range was not used to interpr et this result as reji l/abnormal. [facility]villeBfwzjfsKJAMYUDEH8668-86-45 13:52:00 Test Item Value Reference Range Interpretation Comments O2 Sat Roberth (test code = O2 Sat Roberth) 48.0 40.0-70.0 N [facility]villeAepyltmUJNRNLRFQ8997-64-30 13:52:00 Test Item Value Reference Range Interpretation Comments Temp Roberth (test code = Temp Roberth) 37.0 [facility]villeEnjgjeuFZGUATJTK8509-73-47 13:52:00 Test Item Value Reference Range Interpretation Comments pH Roberth (test code = pH Roberth) 7.47 7.28-7.42 H [facility]villeMugfwknFLWIRWWQN0956-38-24 13:52:00 Test Item Value Reference Range Interpretation Comments Calcium Lvl (test code = Calcium Lvl) 10.1 8.5-10.5 N [facility]villeMabecntUYBIVTDFF4236-62-54 13:52:00 Test Item Value Reference Range Interpretation Comments Chloride Lvl (test code = Chloride Lvl) 92 95-109 L [facility] [place]villeZglarwnHFPMSKCEJ6166-43-99 13:52:00 Test Item Value Reference Range Interpretation Comments CO2 (test code = CO2) 30 24-32 N [facility]villeCifnmdnKDPKMXSWB2993-01-21 13:52:00 Test Item Value Reference Range Interpretation Comments Potassium Lvl (test code = Potassium 3.5 3.5-5.1 N Lvl) [facility]villeVbtatwdBDFQDPCYM4598-33-66 13:52:00 Test Item Value Reference Range Interpretation Comments Sodium Lvl (test code = Sodium Lvl) 133 135-145 L [facility]villeDmswafaCLATYNVRY1613-42-78 13:52:00 Test Item Value Reference Range Interpretation Comments Creatinine Lvl (test code = Creatinine 1.3 0.5-1.4 N Lvl) [facility]villeCmdcshkDXFNJSBZN6438-68-31 13:52:00 Test Item Value Reference Range Interpretation Comments Glucose Lvl (test code = Glucose Lvl) 383 70-99 H [facility]villeGuqsrpuXNJELYMOF2214-12-17 13:52:00 Test Item Value Reference Range Interpretation Comments BUN (test code = BUN) 17 7-22 N [facility]villeWvwzrqeKTEIQGXCE4675-35-97 13:52:00 Test Item Value Reference Range Interpretation Comments AGAP (test code = AGAP) 14.5 10.0-20.0 N [facility] CenterMxwgjuyXSBEOCNKHV2414-82-37 13:52:00 Test Item Value Reference Range Interpretation Comments MPV (test code = MPV) 12.0 7.4-10.4 H [facility] CenterMhiwsjrOBUYQHMASX8074-25-76 13:52:00 Test Item Value Reference Range Interpretation Comments Platelet (test code = Platelet) 226 133-450 N [facility] CenterQwijjamLZRZNLAJPY1515-40-56 13:52:00 Test Item Value Reference Range Interpretation Comments MCHC (test code = MCHC) 33.7 32.0-36.0 N [facility] CenterAsmuvgeDVSHCDKZHZ0695-28-66 13:52:00 Test Item Value Reference Range Interpretation Comments MCH (test code = MCH) 28.5 pg 27.0-31.0 N [facility] CenterKtskeugTTDNEINRVL0942-63-23 13:52:00 Test Item Value Reference Range Interpretation Comments RDW (test code = RDW) 15.1 11.5-14.5 H [facility] CenterOrevbifDRRAJSCVWR0803-48-73 13:52:00 Test Item Value Reference Range Interpretation Comments MCV (test code = MCV) 84.6 81.0-99.0 N [facility] CenterQhidhnmFUPYVGNIXZ4552-21-06 13:52:00 Test Item Value Reference Range Interpretation Comments Hct (test code = Hct) 36.4 36.0-48.0 N [facility] CenterHntrigpHYSVBUTWPC4364-41-30 13:52:00 Test Item Value Reference Range Interpretation Comments Hgb (test code = Hgb) 12.3 12.0-16.0 N [facility] CenterTrddrefSTGASLBWXH1096-18-81 13:52:00 Test Item Value Reference Range Interpretation Comments RBC (test code = RBC) 4.30 4.20-5.40 N [facility] CenterZcftqriQQVJMIEBFZ0564-73-60 13:52:00 Test Item Value Reference Range Interpretation Comments WBC (test code = WBC) 11.7 3.7-10.4 H [facility] CenterAmiwixyUUCYESNGTN9096-99-46 13:52:00 Test Item Value Reference Range Interpretation Comments Monocytes (test code = Monocytes) 2.9 2.0-12.0 N [facility] CenterFzdsyepSYWONRUWCZ6225-15-39 13:52:00 Test Item Value Reference Range Interpretation Comments Eosinophils (test code = 0.2 See_Comment N [A utomated message] The Eosinophils) system which ge nerated this result tra nsmitted reference range : <=4.0. The reference r leo was not used to int erpret this result as normal/abnormal . [facility] CenterLqysxdlDEZVUMWTFT2718-19-14 13:52:00 Test Item Value Reference Range Interpretation Comments Basophils (test code = 0.0 See_Comment N [Aut omated message] The Basophils) system which ge nerated this result tra nsmitted reference range : <=1.0. The reference r leo was not used to int erpret this result as normal/abnormal . [facility] CenterYfnvadsSXBSDEOCRF5927-83-47 13:52:00 Test Item Value Reference Range Interpretation Comments Eosinophils # (test code 0.0 See_Comment N [A utomated message] The = Eosinophils #) system [facility] h generated this result tra nsmitted reference range : <=0.5. The reference r leo was not used to int erpret this result as normal/abnormal . [facility] CenterWhzyvmhOVZMWRATYV0296-63-18 13:52:00 Test Item Value Reference Range Interpretation Comments Monocytes # (test code 0.3 See_Comment N [Aut omated message] The = Monocytes #) system which generated this result tra nsmitted reference range : <=0.8. The reference r leo was not used to int erpret this result as normal/abnormal . [facility] CenterKhacoabUGWLONXORA7762-51-54 13:52:00 Test Item Value Reference Range Interpretation Comments Segs (test code = Segs) 92.0 45.0-75.0 H [facility] CenterZabgpanYYTDTWBPRE5372-90-43 13:52:00 Test Item Value Reference Range Interpretation Comments Lymphocytes (test code = Lymphocytes) 4.9 20.0-40.0 L [facility] CenterMdftobtKDSOKUOBHQ0241-29-87 13:52:00 Test Item Value Reference Range Interpretation Comments Spherocyte (test code = Rare A Spherocyte) *ABN*(09/18/2011 08:52:00) [facility] CenterUhkjwdaWMSCYZEXNQ0341-87-35 13:52:00 Test Item Value Reference Range Interpretation Comments Large Plt (test code = Slight *ABN*(09/18/2011 A Large Plt) 08:52:00) [facility] CenterMrzbfwwULSITOHCOV7779-67-11 13:52:00 Test Item Value Reference Range Interpretation Comments Microcyte (test code = 1+ *ABN*(09/18/2011 A Microcyte) 08:52:00) [facility] CenterWolvnqfIEGXVXYSCN3203-19-27 13:52:00 Test Item Value Reference Range Interpretation Comments Schistocyte (test code = Schistocyte) Rare [facility] CenterFburdfuXTRKZGPDKA0331-44-11 13:52:00 Test Item Value Reference Range Interpretation Comments Macrocyte (test code = 1+ *ABN*(09/18/2011 A Macrocyte) 08:52:00) [facility] CenterWqhzsdtNTSQYXLNGS2535-96-91 13:52:00 Test Item Value Reference Range Interpretation Comments Lymphocytes # (test code = Lymphocytes 0.6 1.0-5.5 L #) [facility] CenterVymmmqkRSXPKCQWTE5041-77-44 13:52:00 Test Item Value Reference Range Interpretation Comments Segs-Bands # (test code = Segs-Bands #) 10.8 1.5-8.1 H [facility] CenterAqcxfgwJUPOAFIHTH8346-09-22 13:52:00 Test Item Value Reference Range Interpretation Comments Basophils # (test code 0.0 See_Comment N [Aut omated message] The = Basophils #) system which generated this result tra nsmitted reference range : <=0.2. The reference r leo was not used to int erpret this result as normal/abnormal . [facility] HospitalDbgakrtRJUSFHMFNF7649-79-98 13:52:00 Test Item Value Reference Range Interpretation Comments Anisocyte (test code = 1+ *ABN*(09/18/2011 A Anisocyte) 08:52:00) [facility] CenterWfqqolyCKFEYEKGIQ6033-36-15 13:52:00 Test Item Value Reference Range Interpretation Comments CDC-HIV 1/2 Ab (test Negative *NA*(09/18/2011 code = CDC-HIV 1/2 08:52:00) Ab) [facility] GLUCOSE ARFZFEX5426-45-58 17:34:00 Test Item Value Reference Range Interpretation Comments Gluc POC Lifscn (test code = Gluc POC 215 70-99 H Lifscn) [facility] GLUCOSE LVCBRKK9079-13-70 17:34:00 Test Item Value Reference Range Interpretation Comments Comment1 (test code = Comment1) Notify RN/ [facility] GLUCOSE FGQIUZU4660-78-54 11:43:00 Test Item Value Reference Range Interpretation Comments Comment1 (test code = Comment1) Notify RN/ [facility] GLUCOSE IDMNBOF1421-54-10 11:43:00 Test Item Value Reference Range Interpretation Comments Gluc POC Lifscn (test code = Gluc POC 91 65-110 N Lifscn) [facility] GLUCOSE JLOBHWO9773-87-47 02:45:00 Test Item Value Reference Range Interpretation Comments Comment1 (test code = Comment1) Notify RN/ [facility] GLUCOSE RNHOHLU5507-19-60 02:45:00 Test Item Value Reference Range Interpretation Comments Gluc POC Lifscn (test code = Gluc POC 148 65-110 H Lifscn) [facility] CenterLpftnmnYXECJNRWT9322-02-48 08:47:00 Test Item Value Reference Range Interpretation Comments Sodium Lvl (test code = Sodium Lvl) 143 135-145 N [facility]villeIhknzomPPDRRZZGT1300-33-63 08:47:00 Test Item Value Reference Range Interpretation Comments Glucose Lvl (test code = Glucose Lvl) 105 [facility]villeQwqeqgbHGXGOCSCV4727-98-95 08:47:00 Test Item Value Reference Range Interpretation Comments CO2 (test code = CO2) 29 24-32 N [facility]villeYcbyjtqVEZQPEQTW2695-06-50 08:47:00 Test Item Value Reference Range Interpretation Comments Chloride Lvl (test code = Chloride Lvl) 103 95-109 N [facility]villeMxaiytwKFUULTWEM0121-47-20 08:47:00 Test Item Value Reference Range Interpretation Comments BUN (test code = BUN) 10 7-22 N [facility]villeNibjkndQTZDPCCSC0567-46-17 08:47:00 Test Item Value Reference Range Interpretation Comments Potassium Lvl (test code = Potassium 3.8 3.5-5.1 N Lvl) [facility]MrqqfcaMXADLKEVY6277-20-98 08:47:00 Test Item Value Reference Range Interpretation Comments Creatinine Lvl (test code = Creatinine 0.6 0.5-1.4 N Lvl) [facility]villeBhfpcrtQXRIKOUVW2218-99-21 08:47:00 Test Item Value Reference Range Interpretation Comments Calcium Lvl (test code = Calcium Lvl) 8.5 8.5-10.5 N [facility]villeHjbtpkdIXSXFMRUO6219-96-46 08:47:00 Test Item Value Reference Range Interpretation Comments AGAP (test code = AGAP) 14.8 10.0-20.0 N [facility] CenterXilmdntLODUSRSATR8665-37-69 08:47:00 Test Item Value Reference Range Interpretation Comments MCH (test code = MCH) 28.9 pg 27.0-31.0 N [facility] CenterHrtavsmFAMAZPMQKE8313-01-37 08:47:00 Test Item Value Reference Range Interpretation Comments MCV (test code = MCV) 82.1 81.0-99.0 N [facility] CenterZqclruqUIKULWRPFI7725-36-51 08:47:00 Test Item Value Reference Range Interpretation Comments Hct (test code = Hct) 25.9 36.0-48.0 L [facility] CenterCwwxaitJUPHHMNDOC9089-70-71 08:47:00 Test Item Value Reference Range Interpretation Comments Platelet (test code = Platelet) 233 133-450 N [facility] CenterPocuecmGYFSILMLVT8824-83-68 08:47:00 Test Item Value Reference Range Interpretation Comments RDW (test code = RDW) 14.5 11.5-14.5 N [facility] CenterQbreldrBTBPEEMJUW3949-24-81 08:47:00 Test Item Value Reference Range Interpretation Comments MCHC (test code = MCHC) 35.2 32.0-36.0 N [facility] CenterSuldvldTUUCSEYCPT1753-68-27 08:47:00 Test Item Value Reference Range Interpretation Comments Hgb (test code = Hgb) 9.1 12.0-16.0 L [facility] CenterMgommixKNJIYLEJYT2592-25-45 08:47:00 Test Item Value Reference Range Interpretation Comments RBC (test code = RBC) 3.15 4.20-5.40 L [facility] CenterZsnceboZBJERFHLSK8324-50-34 08:47:00 Test Item Value Reference Range Interpretation Comments MPV (test code = MPV) 9.0 7.4-10.4 N [facility] CenterKpysyxlCQAJTHIXQK4396-08-14 08:47:00 Test Item Value Reference Range Interpretation Comments WBC (test code = WBC) 6.3 3.7-10.4 N [facility] CenterKkufcobKPQAMJOEBW2644-01-70 08:47:00 Test Item Value Reference Range Interpretation Comments Eosinophils # (test code 0.0 See_Comment N [A utomated message] The = Eosinophils #) system whic h generated this result tra nsmitted reference range : <=0.5. The reference r leo was not used to int erpret this result as normal/abnormal . [facility] CenterKpuvbnbMBFWIGNHQG2865-18-89 08:47:00 Test Item Value Reference Range Interpretation Comments Basophils # (test code 0.0 See_Comment N [Aut omated message] The = Basophils #) system which generated this result tra nsmitted reference range : <=0.2. The reference r leo was not used to int erpret this result as normal/abnormal . [facility] CenterNihwypsXUNKJNRXGA1223-18-16 08:47:00 Test Item Value Reference Range Interpretation Comments Segs-Bands # (test code = Segs-Bands #) 3.8 1.5-8.1 N [facility] CenterFfwzkjyQVTTPXEYKN0036-52-95 08:47:00 Test Item Value Reference Range Interpretation Comments Lymphocytes # (test code = Lymphocytes 2.0 1.0-5.5 N #) [facility] CenterKgdnetfOIEQRFXOBY7851-85-25 08:47:00 Test Item Value Reference Range Interpretation Comments Basophils (test code = 0.5 See_Comment N [Aut omated message] The Basophils) system which ge nerated this result tra nsmitted reference range : <=1.0. The reference r leo was not used to int erpret this result as normal/abnormal . [facility] CenterHxaittwYLNWMXKOEI6792-53-12 08:47:00 Test Item Value Reference Range Interpretation Comments Eosinophils (test code = 0.7 See_Comment N [A utomated message] The Eosinophils) system which ge nerated this result tra nsmitted reference range : <=4.0. The reference r leo was not used to int erpret this result as normal/abnormal . [facility] CenterKrrsbryGNLTQMYRSV2035-06-53 08:47:00 Test Item Value Reference Range Interpretation Comments Monocytes (test code = Monocytes) 6.2 2.0-12.0 N [facility] CenterAggmstrVRDBVTLTZQ3467-64-06 08:47:00 Test Item Value Reference Range Interpretation Comments Segs (test code = Segs) 61.1 45.0-75.0 N [facility] CenterYpysuiiQJKFSLQWGR7825-51-69 08:47:00 Test Item Value Reference Range Interpretation Comments Lymphocytes (test code = Lymphocytes) 31.5 20.0-40.0 N [facility] CenterGvxgwngXRGPRUVXWJ0315-00-38 08:47:00 Test Item Value Reference Range Interpretation Comments Monocytes # (test code 0.4 See_Comment N [Aut omated message] The = Monocytes #) system which generated this result tra nsmitted reference range : <=0.8. The reference r leo was not used to int erpret this result as normal/abnormal . [facility]VnmxcpeCQRFIHPXQ1354-64-82 10:54:00 Test Item Value Reference Range Interpretation Comments CO2 (test code = CO2) 27 24-32 N [facility] [place]villeWzwlnhsFUEKAAOPQ2444-69-51 10:54:00 Test Item Value Reference Range Interpretation Comments Chloride Lvl (test code = Chloride Lvl) 104 95-109 N [facility] [place]villeEpxvqoaERBWRQMEU6548-72-46 10:54:00 Test Item Value Reference Range Interpretation Comments Creatinine Lvl (test code = Creatinine 0.5 0.5-1.4 N Lvl) [facility] [place]villeOrywlkiNGRPXPBIS6494-68-61 10:54:00 Test Item Value Reference Range Interpretation Comments BUN (test code = BUN) 10 7-22 N [facility] [place]villeCdbemrtWSJSLSVJD1205-46-07 10:54:00 Test Item Value Reference Range Interpretation Comments Potassium Lvl (test code = Potassium 4.1 3.5-5.1 N Lvl) [facility] [place]villeHfdapvqKNRSOSIDK3341-89-23 10:54:00 Test Item Value Reference Range Interpretation Comments Sodium Lvl (test code = Sodium Lvl) 141 135-145 N [facility] [place]villeKhrbylsKYRKNZANQ0938-23-92 10:54:00 Test Item Value Reference Range Interpretation Comments Glucose Lvl (test code = Glucose Lvl) 83 [facility] [place]villeTakssgcBFBAIKUIE1623-47-84 10:54:00 Test Item Value Reference Range Interpretation Comments Calcium Lvl (test code = Calcium Lvl) 8.4 8.5-10.5 L [facility] [place]villeGenbjrhLCQDCHJFV4904-14-88 10:54:00 Test Item Value Reference Range Interpretation Comments AGAP (test code = AGAP) 14.1 10.0-20.0 N [facility] CenterBhdibmpXXYRNJCLHL4951-15-73 10:54:00 Test Item Value Reference Range Interpretation Comments Hct (test code = Hct) 35.5 36.0-48.0 L [facility] CenterTjzilroMJAWYKLIVK4469-37-13 10:54:00 Test Item Value Reference Range Interpretation Comments WBC (test code = WBC) 4.7 3.7-10.4 N [facility] CenterFgncxweJLBFOTELGM7365-25-17 10:54:00 Test Item Value Reference Range Interpretation Comments MCV (test code = MCV) 92.6 81.0-99.0 N [facility] CenterPhpfbifTIWZQOMVHX0502-10-55 10:54:00 Test Item Value Reference Range Interpretation Comments MCH (test code = MCH) 31.4 pg 27.0-31.0 H [facility] CenterFvcoxudKOCOAIPYJC1092-44-62 10:54:00 Test Item Value Reference Range Interpretation Comments RBC (test code = RBC) 3.84 4.20-5.40 L [facility] CenterYhfzhwkGHPFCWAYBV9928-69-11 10:54:00 Test Item Value Reference Range Interpretation Comments Hgb (test code = Hgb) 12.1 12.0-16.0 N [facility] CenterZdhjijbSEYANUQZYZ5105-36-90 10:54:00 Test Item Value Reference Range Interpretation Comments Platelet (test code = Platelet) 287 133-450 N [facility] CenterLlaopibWPXZYDZADK3276-76-85 10:54:00 Test Item Value Reference Range Interpretation Comments RDW (test code = RDW) 12.7 11.5-14.5 N [facility] CenterFhiwsltVZBVBJEJIB4322-98-42 10:54:00 Test Item Value Reference Range Interpretation Comments MCHC (test code = MCHC) 33.9 32.0-36.0 N [facility] CenterCrzdzqdWOWWTWHRDL4199-24-62 10:54:00 Test Item Value Reference Range Interpretation Comments MPV (test code = MPV) 7.2 7.4-10.4 L [facility] CenterJkstamcEULRAEDGIN9122-21-32 10:54:00 Test Item Value Reference Range Interpretation Comments INR (test code = INR) 0.95 0.85-1.17 N [facility] CenterOszghddQDXATVWKLK7178-56-23 10:54:00 Test Item Value Reference Range Interpretation Comments PT (test code = PT) 12.7 s 12.0-14.7 N [facility] CenterNjurfuvXAZDNNNQBZ5986-42-25 10:54:00 Test Item Value Reference Range Interpretation Comments PTT (test code = PTT) 28.5 s 22.9-35.8 N [facility] CenterBxcfpshSUYSOLKCLQ6743-88-76 10:54:00 Test Item Value Reference Range Interpretation Comments Eosinophils # (test code 0.1 See_Comment N [A utomated message] The = Eosinophils #) system whic h generated this result tra nsmitted reference range : <=0.5. The reference r leo was not used to int erpret this result as normal/abnormal . [facility] CenterOtykxjfYLVOXWELJR4152-26-98 10:54:00 Test Item Value Reference Range Interpretation Comments Basophils # (test code 0.0 See_Comment N [Aut omated message] The = Basophils #) system which generated this result tra nsmitted reference range : <=0.2. The reference r leo was not used to int erpret this result as normal/abnormal . [facility] CenterFsnftllVGTFRBKUXX9650-07-93 10:54:00 Test Item Value Reference Range Interpretation Comments Basophils (test code = 0.4 See_Comment N [Aut omated message] The Basophils) system which ge nerated this result tra nsmitted reference range : <=1.0. The reference r leo was not used to int erpret this result as normal/abnormal . [facility] CenterYgxgjddDWWUPFXYDZ3278-31-36 10:54:00 Test Item Value Reference Range Interpretation Comments Segs-Bands # (test code = Segs-Bands #) 2.1 1.5-8.1 N [facility] CenterUhfbulkUFYUOTYZBK7057-83-18 10:54:00 Test Item Value Reference Range Interpretation Comments Monocytes (test code = Monocytes) 9.0 2.0-12.0 N [facility] CenterXdgfolnIYNZIQIEGB9600-03-64 10:54:00 Test Item Value Reference Range Interpretation Comments Eosinophils (test code = 2.4 See_Comment N [A utomated message] The Eosinophils) system which ge nerated this result tra nsmitted reference range : <=4.0. The reference r leo was not used to int erpret this result as normal/abnormal . [facility] CenterGsmuppbWBDWLSWPWW6380-28-91 10:54:00 Test Item Value Reference Range Interpretation Comments Monocytes # (test code 0.4 See_Comment N [Aut omated message] The = Monocytes #) system which generated this result tra nsmitted reference range : <=0.8. The reference r leo was not used to int erpret this result as normal/abnormal . [facility] CenterOeaceftHZDNVTAJKB7842-29-83 10:54:00 Test Item Value Reference Range Interpretation Comments Lymphocytes # (test code = Lymphocytes 2.0 1.0-5.5 N #) [facility] CenterDwwvanuDLIZGDQNOX5794-95-74 10:54:00 Test Item Value Reference Range Interpretation Comments Lymphocytes (test code = Lymphocytes) 42.8 20.0-40.0 H [facility] CenterZrxlkwhEWXXQKGBUM6390-20-57 10:54:00 Test Item Value Reference Range Interpretation Comments Segs (test code = Segs) 45.4 45.0-75.0 N [facility] [place]villeWtxjideUSMPLUWKD6887-76-96 10:02:00 Test Item Value Reference Range Interpretation Comments Chloride Lvl (test code = Chloride Lvl) 105 95-109 N [facility] [place]villeMiwgcsqBNRQLQNYV9824-14-30 10:02:00 Test Item Value Reference Range Interpretation Comments Potassium Lvl (test code = Potassium 4.1 3.5-5.1 N Lvl) [facility] [place]villeUfibgrvIUIIVCJUI1560-43-42 10:02:00 Test Item Value Reference Range Interpretation Comments Sodium Lvl (test code = Sodium Lvl) 143 135-145 N [facility] [place]villeYdmpewsEPLHZHUZT6867-34-27 10:02:00 Test Item Value Reference Range Interpretation Comments CO2 (test code = CO2) 29 24-32 N [facility] [place]villeFhiquvlOPLQIIOIA1569-80-57 10:02:00 Test Item Value Reference Range Interpretation Comments Calcium Lvl (test code = Calcium Lvl) 8.7 8.5-10.5 N [facility] [place]villeDfzpehvCEGWRVIQH3411-59-54 10:02:00 Test Item Value Reference Range Interpretation Comments BUN (test code = BUN) 6 7-22 L [facility] [place]villeRvfoufpAUVTSFQRQ8011-45-03 10:02:00 Test Item Value Reference Range Interpretation Comments Creatinine Lvl (test code = Creatinine 0.6 0.5-1.4 N Lvl) [facility] [place]VttylcdJBZVNNDJA9149-75-57 10:02:00 Test Item Value Reference Range Interpretation Comments Glucose Lvl (test code = Glucose Lvl) 118 [facility] [place]villeCfdtfrcUDWUJUNHZ9792-49-70 10:02:00 Test Item Value Reference Range Interpretation Comments AGAP (test code = AGAP) 13.1 10.0-20.0 N [facility] CenterCiizsivNADBYNERFR3038-02-70 10:02:00 Test Item Value Reference Range Interpretation Comments Basophils # (test code 0.0 See_Comment N [Aut omated message] The = Basophils #) system which generated this result tra nsmitted reference range : <=0.2. The reference r leo was not used to int erpret this result as normal/abnormal . [facility] CenterBsyxqwsNCWNJAWIES8033-10-31 10:02:00 Test Item Value Reference Range Interpretation Comments Monocytes # (test code 0.3 See_Comment N [Aut omated message] The = Monocytes #) system which generated this result tra nsmitted reference range : <=0.8. The reference r leo was not used to int erpret this result as normal/abnormal . [facility] CenterIbeerzqKZAZRGAVOK1524-68-43 10:02:00 Test Item Value Reference Range Interpretation Comments Eosinophils # (test code 0.1 See_Comment N [A utomated message] The = Eosinophils #) system whic h generated this result tra nsmitted reference range : <=0.5. The reference r leo was not used to int erpret this result as normal/abnormal . [facility] CenterLvnskfuCAZKAPBDBP6583-72-76 10:02:00 Test Item Value Reference Range Interpretation Comments Segs-Bands # (test code = Segs-Bands #) 2.8 1.5-8.1 N [facility] CenterXrxrwkxECYXOTRGYP6681-14-46 10:02:00 Test Item Value Reference Range Interpretation Comments Lymphocytes # (test code = Lymphocytes 1.7 1.0-5.5 N #) [facility] CenterLmqsxvdKYDBZVQPQL7158-73-58 10:02:00 Test Item Value Reference Range Interpretation Comments Basophils (test code = 0.6 See_Comment N [Aut omated message] The Basophils) system which ge nerated this result tra nsmitted reference range : <=1.0. The reference r leo was not used to int erpret this result as normal/abnormal . [facility] CenterRrlvaahXZHUHDBWPI2520-03-84 10:02:00 Test Item Value Reference Range Interpretation Comments Monocytes (test code = Monocytes) 6.9 2.0-12.0 N [facility] CenterIjqtnpuYYUFYVNDHS3002-67-62 10:02:00 Test Item Value Reference Range Interpretation Comments Eosinophils (test code = 2.0 See_Comment N [A utomated message] The Eosinophils) system which ge nerated this result tra nsmitted reference range : <=4.0. The reference r leo was not used to int erpret this result as normal/abnormal . [facility] CenterMuaakcvHIBBQBQANL8763-82-30 10:02:00 Test Item Value Reference Range Interpretation Comments Segs (test code = Segs) 55.8 45.0-75.0 N [facility] CenterZvtnacaEMECTYELFI3687-09-62 10:02:00 Test Item Value Reference Range Interpretation Comments Lymphocytes (test code = Lymphocytes) 34.7 20.0-40.0 N [facility] CenterElifryxONUFKMUOFV2147-15-16 10:02:00 Test Item Value Reference Range Interpretation Comments PTT (test code = PTT) 32.2 s 22.9-35.8 N [facility] CenterNazqwlaDHEYPPWLFS1108-72-46 10:02:00 Test Item Value Reference Range Interpretation Comments PT (test code = PT) 13.3 s 12.0-14.7 N [facility] CenterNcunbjvNGALEZHYXA7974-74-33 10:02:00 Test Item Value Reference Range Interpretation Comments INR (test code = INR) 1.01 0.85-1.17 N [facility]SqmxpbqRJWKGAVRDR4122-53-37 10:02:00 Test Item Value Reference Range Interpretation Comments Hct (test code = Hct) 27.5 36.0-48.0 L [facility] CenterFpwndiwUZPEVQYZQT9930-26-88 10:02:00 Test Item Value Reference Range Interpretation Comments RBC (test code = RBC) 3.34 4.20-5.40 L [facility] CenterYdzcncrHODBHBLDLE2015-05-08 10:02:00 Test Item Value Reference Range Interpretation Comments Hgb (test code = Hgb) 9.7 12.0-16.0 L [facility] CenterAbmtoprAFPSTAMLAM1942-95-77 10:02:00 Test Item Value Reference Range Interpretation Comments WBC (test code = WBC) 5.0 3.7-10.4 N [facility] CenterVcvamieWXYNQDLQEE7174-75-29 10:02:00 Test Item Value Reference Range Interpretation Comments MPV (test code = MPV) 9.2 7.4-10.4 N [facility] CenterHofxrgvWLCRSBBUDX3170-88-25 10:02:00 Test Item Value Reference Range Interpretation Comments Platelet (test code = Platelet) 240 133-450 N [facility] CenterRpvgkdtLGVUGLMNUG9643-90-47 10:02:00 Test Item Value Reference Range Interpretation Comments RDW (test code = RDW) 14.3 11.5-14.5 N [facility] CenterZaddocjQGDNOHFRFP3281-60-56 10:02:00 Test Item Value Reference Range Interpretation Comments MCHC (test code = MCHC) 35.2 32.0-36.0 N [facility] CenterAwyjxsvPBUQCBFMYK6471-56-14 10:02:00 Test Item Value Reference Range Interpretation Comments MCH (test code = MCH) 28.9 pg 27.0-31.0 N [facility]MhznwpiVLUPPZHCXO4549-61-88 10:02:00 Test Item Value Reference Range Interpretation Comments MCV (test code = MCV) 82.1 81.0-99.0 N [facility]TeimdbjXMVHBUJKM1363-03-81 09:24:00 Test Item Value Reference Range Interpretation Comments Magnesium Lvl (test code = Magnesium 2.1 1.8-2.4 N Lvl) [facility] HospitalMzxxprgSzjuygceyfgs9616-35-02 00:32:00 Test Item Value Reference Range Interpretation Comments Culture: Aspirate/Body Fluid/Tissue (test code = Culture: Aspirate/Body Fluid/Tissue) [facility]hamAfnnmnkLmbkatmchenb2251-41-18 00:32:00 Test Item Value Reference Range Interpretation Comments Culture: Anaerobic (test code = Culture: Anaerobic) [facility]MstzonwQEQEXBTVT6399-42-97 17:10:00 Test Item Value Reference Range Interpretation Comments Temp Roberth (test code = Temp Roberth) 37.0 [facility]villeWvynrmfZXBSUIYYO6694-78-06 17:10:00 Test Item Value Reference Range Interpretation Comments O2 Sat Roberth (test code = O2 Sat Roberth) 27.0 40.0-70.0 L [facility]villeVvhrxcdSMBOWLFXJ3165-23-22 17:10:00 Test Item Value Reference Range Interpretation Comments pCO2 Roberth (test code = pCO2 Roberth) 47 38-52 N [facility]villeXgllqxtFNFWLUQYH9673-63-20 17:10:00 Test Item Value Reference Range Interpretation Comments pH Roberth (test code = pH Roberth) 7.37 7.28-7.42 N [facility]villeCmbllfwJGWOJEYPN3516-70-77 17:10:00 Test Item Value Reference Range Interpretation Comments BE Roberth (test code = 1 See_Comment N [Automa rohit message] The BE Roberth) system which ge nerated this result transmit rohit reference range : <=2. The reference range was not used to interpr et this result as reji l/abnormal. [facility]villeRqrwbinIVEGDNXET2144-99-52 17:10:00 Test Item Value Reference Range Interpretation Comments HCO3 Roberth (test code = HCO3 Roberth) 27.2 22.0-26.0 H [facility]villeNgjlkaeFLIAFVDUD7735-96-90 17:10:00 Test Item Value Reference Range Interpretation Comments pO2 Roberth (test code = pO2 Roberth) 19 20-49 L [facility]hamDgcaltsGvsefapizdxq8728-88-90 14:18:00 Test Item Value Reference Range Interpretation Comments Culture: Blood (test code = Culture: Blood) [facility]hamDgnyveaDlkhxvzauivb1514-80-23 14:18:00 Test Item Value Reference Range Interpretation Comments Culture: Wound/Abscess w/Gram Stain (test code = Culture: Wound/Abscess w/Gram Stain) [facility]villeMfmplymBSYOUZFZY4926-17-89 13:09:00 Test Item Value Reference Range Interpretation Comments Lactic Acid Lvl (test code = Lactic 1.0 0.5-2.2 N Acid Lvl) [facility]villeZhupmkxWGOSXYOMO3400-95-33 12:20:00 Test Item Value Reference Range Interpretation Comments U Preg (test code = U Negative (09/01/2011 N Preg) 07:20:00) [facility] HospitalSfuqqmiFYEFXDEKOM8554-17-07 12:20:00 Test Item Value Reference Range Interpretation Comments UA Sq Epi (test code Occasional /LPF N = UA Sq Epi) (09/01/2011 07:20:00) [facility] HospitalXmchrjtXCZIKMEYOZ6461-09-59 12:20:00 Test Item Value Reference Range Interpretation Comments UA Leuk Est (test Negative (09/01/2011 N code = UA Leuk Est) 07:20:00) [facility] HospitalHlwrxezQUZQFKQJHZ9375-35-61 12:20:00 Test Item Value Reference Range Interpretation Comments UA Nitrite (test code Negative (09/01/2011 N = UA Nitrite) 07:20:00) [facility] CenterHksphtvUNVDBTFGAC6038-34-66 12:20:00 Test Item Value Reference Range Interpretation Comments UA Urobilinogen (test code = UA 0.2 0.1-1.0 N Urobilinogen) [facility] CenterVptqhvdLOEVGRFOQY4609-22-14 12:20:00 Test Item Value Reference Range Interpretation Comments UA Blood (test code = Negative (09/01/2011 N UA Blood) 07:20:00) [facility] CenterCnkpsygRYDIXFUTRD3096-02-39 12:20:00 Test Item Value Reference Range Interpretation Comments UA Ketones (test code = >=80 mg/dL A UA Ketones) *ABN*(09/01/2011 07:20:00) [facility] CenterKpzwgshXTRSIIQUVR7428-79-93 12:20:00 Test Item Value Reference Range Interpretation Comments UA Protein (test code Negative (09/01/2011 N = UA Protein) 07:20:00) [facility] HospitalTulwctvDFDNVKQNEZ4079-61-96 12:20:00 Test Item Value Reference Range Interpretation Comments UA pH (test code = UA pH) 6.0 1 5.0-8.0 N [facility] HospitalIzlbvwmIGIDINZJGC6404-02-18 12:20:00 Test Item Value Reference Range Interpretation Comments UA Bili (test code = Negative (09/01/2011 N UA Bili) 07:20:00) [facility] HospitalDozqxwrAQOZRFPIGI9992-15-90 12:20:00 Test Item Value Reference Range Interpretation Comments UA Glucose (test code = >=1000 mg/dL A UA Glucose) *ABN*(09/01/2011 07:20:00) [facility]RfsiehwSATSMYZOSW8226-48-94 12:20:00 Test Item Value Reference Range Interpretation Comments UA Spec Grav (test code = UA Spec 1.035 1 H Grav) [facility] CenterZwgxccrNDHACHNSKZ6929-08-01 12:20:00 Test Item Value Reference Range Interpretation Comments UA Turbidity (test code = Clear (09/01/2011 N UA Turbidity) 07:20:00) [facility] CenterMeqrlwcKHZVHNTAGL7667-22-73 12:20:00 Test Item Value Reference Range Interpretation Comments UA Color (test code = Yellow *NA*(09/01/2011 UA Color) 07:20:00) [facility]villeUixuysdJKBJHLVDV3188-15-06 08:00:00 Test Item Value Reference Range Interpretation Comments Lactic Acid Lvl (test code = Lactic 2.8 0.5-2.2 H Acid Lvl) [facility]villeKpnzajaPNTWSFSPS6838-30-75 07:47:00 Test Item Value Reference Range Interpretation Comments Magnesium Lvl (test code = Magnesium 1.5 1.8-2.4 L Lvl) [facility] CenterNistxdcUMAEVKSVTV7931-95-46 07:47:00 Test Item Value Reference Range Interpretation Comments Polychrom (test code = Slight (09/01/2011 N Polychrom) 02:47:00) [facility] CenterFfamkijCPUCJQKBWI6337-15-31 07:47:00 Test Item Value Reference Range Interpretation Comments Anisocyte (test code = 1+ *ABN*(09/01/2011 A Anisocyte) 02:47:00) [facility] CenterPlbfzwuTCIQWSPHIT8077-56-17 07:47:00 Test Item Value Reference Range Interpretation Comments Large Plt (test code = Slight *ABN*(09/01/2011 A Large Plt) 02:47:00) [facility] CenterIyrrpaqQCDJLDRLLB8270-76-72 07:47:00 Test Item Value Reference Range Interpretation Comments Tear Cell (test code = Tear Cell) Occasional [facility] CenterVdnabysKYYRNGTORG1149-30-38 07:47:00 Test Item Value Reference Range Interpretation Comments Elliptocyte (test code = Slight A Elliptocyte) *ABN*(09/01/2011 02:47:00) [facility] GLUCOSE CUZCHDA5827-50-66 17:02:00 Test Item Value Reference Range Interpretation Comments Comment1 (test code = Comment1) Notify RN/ [facility] GLUCOSE DKLBRSP8169-34-77 17:02:00 Test Item Value Reference Range Interpretation Comments Gluc POC Lifscn (test code = Gluc POC 134 65-110 H Lifscn) [facility] GLUCOSE KSTJASY0198-95-05 13:45:00 Test Item Value Reference Range Interpretation Comments Gluc POC Lifscn (test code = Gluc POC 182 65-110 H Lifscn) [facility] GLUCOSE UANCPVM7681-22-91 13:45:00 Test Item Value Reference Range Interpretation Comments Comment1 (test code = Comment1) Notify RN/ [facility]SfwsjeiBVUOIPZDQ0570-73-07 10:22:00 Test Item Value Reference Range Interpretation Comments Phosphorus (test code = Phosphorus) 3.0 2.5-4.5 N [facility]villeVwpqsvwNCORFJJPV0842-69-29 10:22:00 Test Item Value Reference Range Interpretation Comments Magnesium Lvl (test code = Magnesium 1.8 1.8-2.4 N Lvl) [facility]ZrafxegSGGBYYHWC3224-01-31 10:22:00 Test Item Value Reference Range Interpretation Comments Chloride Lvl (test code = Chloride Lvl) 107 95-109 N [facility] [place]villeRsdcwroVZENUPEXW6534-16-85 10:22:00 Test Item Value Reference Range Interpretation Comments Potassium Lvl (test code = Potassium 3.0 3.5-5.1 A Lvl) [facility] [place]villeYiqdkgaZSNHBEVVW3474-57-65 10:22:00 Test Item Value Reference Range Interpretation Comments Sodium Lvl (test code = Sodium Lvl) 141 135-145 N [facility] [place]villeQppwhbdAYUSKUDZF6476-37-59 10:22:00 Test Item Value Reference Range Interpretation Comments Creatinine Lvl (test code = Creatinine 0.6 0.5-1.4 N Lvl) [facility] [place]villeAkqmwmkCXXXJPGVJ6234-05-07 10:22:00 Test Item Value Reference Range Interpretation Comments CO2 (test code = CO2) 23 24-32 L [facility] [place]KhsdatrAJBLKYZIY2396-54-55 10:22:00 Test Item Value Reference Range Interpretation Comments Calcium Lvl (test code = Calcium Lvl) 7.3 8.5-10.5 L [facility] [place]villeCocoscoDAJXMAZGK6430-13-20 10:22:00 Test Item Value Reference Range Interpretation Comments Glucose Lvl (test code = Glucose Lvl) 136 [facility] [place]villeMajdndyFRIZSAKYW2062-95-11 10:22:00 Test Item Value Reference Range Interpretation Comments AGAP (test code = AGAP) 14.0 10.0-20.0 N [facility] [place]YsotwvtOMTTDSQSK6187-21-80 10:22:00 Test Item Value Reference Range Interpretation Comments BUN (test code = BUN) 5 7-22 L [facility] CenterXdmrddiWGVLLRMXJV5539-02-69 10:22:00 Test Item Value Reference Range Interpretation Comments Segs (test code = Segs) 69.6 45.0-75.0 N [facility] CenterEhfffzwCUIRTDLJBX9719-58-02 10:22:00 Test Item Value Reference Range Interpretation Comments Lymphocytes (test code = Lymphocytes) 21.5 20.0-40.0 N [facility] CenterIejwiqtWFRYPWIEBM9633-43-82 10:22:00 Test Item Value Reference Range Interpretation Comments Monocytes (test code = Monocytes) 7.6 2.0-12.0 N [facility] CenterUaulmrsLVOENYXBBI5696-30-68 10:22:00 Test Item Value Reference Range Interpretation Comments Eosinophils (test code = 1.0 See_Comment N [A utomated message] The Eosinophils) system which ge nerated this result tra nsmitted reference range : <=4.0. The reference r leo was not used to int erpret this result as normal/abnormal . [facility] CenterXgcftcxKVLARXISDU3682-31-30 10:22:00 Test Item Value Reference Range Interpretation Comments Basophils (test code = 0.3 See_Comment N [Aut omated message] The Basophils) system which ge nerated this result tra nsmitted reference range : <=1.0. The reference r leo was not used to int erpret this result as normal/abnormal . [facility] CenterSmqimjlZFUZWPTMEK7993-22-73 10:22:00 Test Item Value Reference Range Interpretation Comments Segs-Bands # (test code = Segs-Bands #) 4.8 1.5-8.1 N [facility] CenterYhqzpyaNMNFQWTPAC9210-07-56 10:22:00 Test Item Value Reference Range Interpretation Comments Eosinophils # (test code 0.1 See_Comment N [A utomated message] The = Eosinophils #) system whic h generated this result tra nsmitted reference range : <=0.5. The reference r leo was not used to int erpret this result as normal/abnormal . [facility] CenterXwuounfGSFIKCIKPQ1049-29-75 10:22:00 Test Item Value Reference Range Interpretation Comments Lymphocytes # (test code = Lymphocytes 1.5 1.0-5.5 N #) [facility] CenterWfrpqwhKYFBKACVNW8376-58-71 10:22:00 Test Item Value Reference Range Interpretation Comments Monocytes # (test code 0.5 See_Comment N [Aut omated message] The = Monocytes #) system which generated this result tra nsmitted reference range : <=0.8. The reference r leo was not used to int erpret this result as normal/abnormal . [facility] CenterWpkbznuHXJFSZSFAU9419-19-89 10:22:00 Test Item Value Reference Range Interpretation Comments Basophils # (test code 0.0 See_Comment N [Aut omated message] The = Basophils #) system which generated this result tra nsmitted reference range : <=0.2. The reference r leo was not used to int erpret this result as normal/abnormal . [facility] CenterAzvxmeoATSITYZDPS1193-93-19 10:22:00 Test Item Value Reference Range Interpretation Comments MPV (test code = MPV) 11.0 7.4-10.4 H [facility] CenterIhbfupyWVNOLLEUDX2544-26-56 10:22:00 Test Item Value Reference Range Interpretation Comments Platelet (test code = Platelet) 161 133-450 N [facility] CenterUlzcddcVVEXHKZWZB0913-92-99 10:22:00 Test Item Value Reference Range Interpretation Comments MCH (test code = MCH) 29.6 pg 27.0-31.0 N [facility] CenterWoaezdgJYSUSFEEKY0352-53-86 10:22:00 Test Item Value Reference Range Interpretation Comments MCHC (test code = MCHC) 35.4 32.0-36.0 N [facility] CenterUocpgrgJVUESSHNRX3015-41-04 10:22:00 Test Item Value Reference Range Interpretation Comments RDW (test code = RDW) 14.1 11.5-14.5 N [facility] CenterXfgnqqeZKMPQKWQWV5102-15-62 10:22:00 Test Item Value Reference Range Interpretation Comments WBC (test code = WBC) 6.8 3.7-10.4 N [facility] CenterNpprvxhFYUHJCKUBD8779-72-45 10:22:00 Test Item Value Reference Range Interpretation Comments MCV (test code = MCV) 83.5 81.0-99.0 N [facility] CenterMjhgqpsWUQLYZISVO3289-51-18 10:22:00 Test Item Value Reference Range Interpretation Comments RBC (test code = RBC) 4.44 4.20-5.40 N [facility] CenterRexogcvQVOACTJINH0249-48-26 10:22:00 Test Item Value Reference Range Interpretation Comments Hgb (test code = Hgb) 13.1 12.0-16.0 N [facility] CenterPeckzdoKIIMRKTJZJ3586-43-35 10:22:00 Test Item Value Reference Range Interpretation Comments Hct (test code = Hct) 37.1 36.0-48.0 N [facility] GLUCOSE AKIAIZX1434-52-02 02:20:00 Test Item Value Reference Range Interpretation Comments Comment1 (test code = Comment1) Notify RN/MD [facility] GLUCOSE UXTBWQP1903-76-30 02:20:00 Test Item Value Reference Range Interpretation Comments Gluc POC Lifscn (test code = Gluc POC 332 65-110 H Lifscn) [facility]XqhledhKVDFWULJL6774-98-89 09:47:00 Test Item Value Reference Range Interpretation Comments Phosphorus (test code = Phosphorus) 2.5 2.5-4.5 N [facility]villeVbwqkntDBYMDFUAM0918-53-06 09:47:00 Test Item Value Reference Range Interpretation Comments Glucose Lvl (test code = Glucose Lvl) 201 [facility]villeIiyemkcIBOYOOCPD9203-36-04 09:47:00 Test Item Value Reference Range Interpretation Comments BUN (test code = BUN) 7 7-22 N [facility]villeYrvqobrVUKIXKEDH3240-43-95 09:47:00 Test Item Value Reference Range Interpretation Comments CO2 (test code = CO2) 19 24-32 L [facility]villeBetsgjnMUZZYIYIS0325-92-96 09:47:00 Test Item Value Reference Range Interpretation Comments Creatinine Lvl (test code = Creatinine 0.3 0.5-1.4 L Lvl) [facility]villeBehoaaqZFPZSSNFC0975-40-17 09:47:00 Test Item Value Reference Range Interpretation Comments Sodium Lvl (test code = Sodium Lvl) 137 135-145 N [facility]villeOdywvmkPWVOZXHRO1563-15-56 09:47:00 Test Item Value Reference Range Interpretation Comments Chloride Lvl (test code = Chloride Lvl) 103 95-109 N [facility] [place]villeKnjpamtSEMVFWWUU3973-60-45 09:47:00 Test Item Value Reference Range Interpretation Comments Potassium Lvl (test code = Potassium 3.6 3.5-5.1 N Lvl) [facility]villePcihmdsGUFVUTFSY8802-66-31 09:47:00 Test Item Value Reference Range Interpretation Comments Calcium Lvl (test code = Calcium Lvl) 7.9 8.5-10.5 L [facility]villeTfmrquwNARHICSUR9466-02-53 09:47:00 Test Item Value Reference Range Interpretation Comments AGAP (test code = AGAP) 18.6 10.0-20.0 N [facility]villeUofqjvsNEIXBAWLM4656-20-24 09:47:00 Test Item Value Reference Range Interpretation Comments Magnesium Lvl (test code = Magnesium 1.6 1.8-2.4 L Lvl) [facility] CenterEdnvxogEKFEFSAKIT6073-62-07 09:47:00 Test Item Value Reference Range Interpretation Comments Basophils # (test code 0.0 See_Comment N [Aut omated message] The = Basophils #) system which generated this result tra nsmitted reference range : <=0.2. The reference r leo was not used to int erpret this result as normal/abnormal . [facility] CenterDwohrviQMEGWDEXCG8339-72-46 09:47:00 Test Item Value Reference Range Interpretation Comments Eosinophils (test code = 0.4 See_Comment N [A utomated message] The Eosinophils) system which ge nerated this result tra nsmitted reference range : <=4.0. The reference r leo was not used to int erpret this result as normal/abnormal . [facility] CenterIodatzrIOEMVFHDKF1981-93-31 09:47:00 Test Item Value Reference Range Interpretation Comments Basophils (test code = 0.5 See_Comment N [Aut omated message] The Basophils) system which ge nerated this result tra nsmitted reference range : <=1.0. The reference r leo was not used to int erpret this result as normal/abnormal . [facility] CenterUpjixudDGLHAQHXOB5278-23-21 09:47:00 Test Item Value Reference Range Interpretation Comments Segs-Bands # (test code = Segs-Bands #) 5.9 1.5-8.1 N [facility] CenterHgvqnahTQVLHITFRI4838-52-37 09:47:00 Test Item Value Reference Range Interpretation Comments Lymphocytes # (test code = Lymphocytes 1.2 1.0-5.5 N #) [facility] CenterDajxkbjVVNKHQASMO8801-47-22 09:47:00 Test Item Value Reference Range Interpretation Comments Monocytes # (test code 0.5 See_Comment N [Aut omated message] The = Monocytes #) system which generated this result tra nsmitted reference range : <=0.8. The reference r leo was not used to int erpret this result as normal/abnormal . [facility] CenterHkuvgamOWLTDOMJFV2051-33-96 09:47:00 Test Item Value Reference Range Interpretation Comments Eosinophils # (test code 0.0 See_Comment N [A utomated message] The = Eosinophils #) system whic h generated this result tra nsmitted reference range : <=0.5. The reference r leo was not used to int erpret this result as normal/abnormal . [facility] CenterKksfnoqZKELSCNDQZ5511-48-46 09:47:00 Test Item Value Reference Range Interpretation Comments Segs (test code = Segs) 76.9 45.0-75.0 H [facility] CenterLtivwneHHODPATWBE0190-29-05 09:47:00 Test Item Value Reference Range Interpretation Comments Lymphocytes (test code = Lymphocytes) 15.9 20.0-40.0 L [facility] CenterLyawkwuSWGEJNFJTT6885-73-65 09:47:00 Test Item Value Reference Range Interpretation Comments Monocytes (test code = Monocytes) 6.3 2.0-12.0 N [facility] CenterAuxyhorRZBTJVQLOL2803-21-64 09:47:00 Test Item Value Reference Range Interpretation Comments MCV (test code = MCV) 82.8 81.0-99.0 N [facility] CenterBnplrusPWLOFXALLH9144-95-35 09:47:00 Test Item Value Reference Range Interpretation Comments Hct (test code = Hct) 39.7 36.0-48.0 N [facility] CenterIjindnrBINSGOEOGX6799-99-88 09:47:00 Test Item Value Reference Range Interpretation Comments MCH (test code = MCH) 29.1 pg 27.0-31.0 N [facility] CenterBwevhabWOXUPAEXRW4863-42-13 09:47:00 Test Item Value Reference Range Interpretation Comments Hgb (test code = Hgb) 14.0 12.0-16.0 N [facility] CenterIqkpdztRCZQJVWDBO2898-56-64 09:47:00 Test Item Value Reference Range Interpretation Comments MCHC (test code = MCHC) 35.2 32.0-36.0 N [facility] CenterFmrtmygNMRZJVBNQI1352-10-32 09:47:00 Test Item Value Reference Range Interpretation Comments RDW (test code = RDW) 13.9 11.5-14.5 N [facility] CenterZtxjarvHVHDSMNSOL2413-51-63 09:47:00 Test Item Value Reference Range Interpretation Comments Platelet (test code = Platelet) 160 133-450 N [facility] CenterOrouwjkBGVQVUICDR9591-01-33 09:47:00 Test Item Value Reference Range Interpretation Comments MPV (test code = MPV) 11.9 7.4-10.4 H [facility] CenterWvibbslVCJIYMMKLP1292-12-52 09:47:00 Test Item Value Reference Range Interpretation Comments WBC (test code = WBC) 7.7 3.7-10.4 N [facility] CenterJoieivtWWZCPEDHOK5896-38-62 09:47:00 Test Item Value Reference Range Interpretation Comments RBC (test code = RBC) 4.80 4.20-5.40 N [facility]villeIzegsdjKVVCUPRQY9762-20-99 10:28:00 Test Item Value Reference Range Interpretation Comments Phosphorus (test code = Phosphorus) 2.6 2.5-4.5 N [facility]villeNljcgczGDZHKHTZO5359-56-79 10:28:00 Test Item Value Reference Range Interpretation Comments Magnesium Lvl (test code = Magnesium 1.8 1.8-2.4 N Lvl) [facility]villeHmdjzzgRYSBMORNX7225-57-81 10:28:00 Test Item Value Reference Range Interpretation Comments Potassium Lvl (test code = Potassium 3.7 3.5-5.1 N Lvl) [facility]villeBcvfdhhNUZQIMSYQ3583-89-78 10:28:00 Test Item Value Reference Range Interpretation Comments Sodium Lvl (test code = Sodium Lvl) 137 135-145 N [facility]villeSpslmabTXYILWXIH6491-92-78 10:28:00 Test Item Value Reference Range Interpretation Comments Creatinine Lvl (test code = Creatinine 0.6 0.5-1.4 N Lvl) [facility]villeTapzuudHSQIELXZO4549-70-13 10:28:00 Test Item Value Reference Range Interpretation Comments BUN (test code = BUN) 16 7-22 N [facility]villeCmkuozhGVZZGRSUX4361-44-53 10:28:00 Test Item Value Reference Range Interpretation Comments Glucose Lvl (test code = Glucose Lvl) 200 [facility]villeHxlqaleIJOSIHZBE6096-02-58 10:28:00 Test Item Value Reference Range Interpretation Comments Calcium Lvl (test code = Calcium Lvl) 8.3 8.5-10.5 L [facility]villeAsmcouuQNYJAKNIR6251-56-24 10:28:00 Test Item Value Reference Range Interpretation Comments AGAP (test code = AGAP) 19.7 10.0-20.0 N [facility]villeQdqcecwBUGNBLDMW8417-66-14 10:28:00 Test Item Value Reference Range Interpretation Comments Chloride Lvl (test code = Chloride Lvl) 99 95-109 N [facility]villeMzffaryNBFNYTFYW8930-29-84 10:28:00 Test Item Value Reference Range Interpretation Comments CO2 (test code = CO2) 22 24-32 L [facility] CenterHlmlyciRSGAQCZPQA1515-42-34 10:28:00 Test Item Value Reference Range Interpretation Comments Platelet (test code = Platelet) 172 133-450 N [facility] CenterOazxldqDAQPFFTZDB9955-52-16 10:28:00 Test Item Value Reference Range Interpretation Comments MPV (test code = MPV) 12.0 7.4-10.4 H [facility] CenterBybdjxvJBSCRHJMDH5888-75-74 10:28:00 Test Item Value Reference Range Interpretation Comments WBC (test code = WBC) 7.3 3.7-10.4 N [facility] CenterStggxauFDVZCHMPRQ9113-41-00 10:28:00 Test Item Value Reference Range Interpretation Comments RDW (test code = RDW) 14.6 11.5-14.5 H [facility] CenterScmwkfvAZXDDIAXLW0575-64-35 10:28:00 Test Item Value Reference Range Interpretation Comments MCHC (test code = MCHC) 35.0 32.0-36.0 N [facility] CenterBsvovvkLOLWHYQBPX3854-60-88 10:28:00 Test Item Value Reference Range Interpretation Comments RBC (test code = RBC) 4.54 4.20-5.40 N [facility] CenterDeudxdvTQQUSCZCLG4901-56-64 10:28:00 Test Item Value Reference Range Interpretation Comments Hct (test code = Hct) 37.6 36.0-48.0 N [facility] CenterFuyoediAEITVGKNXP6819-40-93 10:28:00 Test Item Value Reference Range Interpretation Comments MCV (test code = MCV) 82.9 81.0-99.0 N [facility] CenterUymktlkOPMMQNEBFP5647-76-40 10:28:00 Test Item Value Reference Range Interpretation Comments MCH (test code = MCH) 29.0 pg 27.0-31.0 N [facility] CenterMixnjloNVRGSKAGBM7508-35-96 10:28:00 Test Item Value Reference Range Interpretation Comments Hgb (test code = Hgb) 13.2 12.0-16.0 N [facility] CenterXdbmwolDVPRGHNCKK9156-92-14 10:28:00 Test Item Value Reference Range Interpretation Comments Elliptocyte (test code = Slight A Elliptocyte) *ABN*(08/21/2011 04:28:00) [facility] CenterOrciyowKHLYIMFGAY9283-07-49 10:28:00 Test Item Value Reference Range Interpretation Comments Polychrom (test code = Slight (08/21/2011 N Polychrom) 04:28:00) [facility] CenterJlglmhlCSKXJLHZSE4715-24-60 10:28:00 Test Item Value Reference Range Interpretation Comments Basophils # (test code 0.0 See_Comment N [Aut omated message] The = Basophils #) system which generated this result tra nsmitted reference range : <=0.2. The reference r leo was not used to int erpret this result as normal/abnormal . [facility] CenterVirfanjVLVSKAWVOT2036-72-65 10:28:00 Test Item Value Reference Range Interpretation Comments Hypochrom (test code = Slight (08/21/2011 N Hypochrom) 04:28:00) [facility] CenterPqquetlDJTEHNEQSF1389-12-09 10:28:00 Test Item Value Reference Range Interpretation Comments Monocytes # (test code 0.6 See_Comment N [Aut omated message] The = Monocytes #) system which generated this result tra nsmitted reference range : <=0.8. The reference r leo was not used to int erpret this result as normal/abnormal . [facility] CenterAyxkmueSZAWVRSFWL3436-94-69 10:28:00 Test Item Value Reference Range Interpretation Comments Eosinophils # (test code 0.0 See_Comment N [A utomated message] The = Eosinophils #) system whic h generated this result tra nsmitted reference range : <=0.5. The reference r leo was not used to int erpret this result as normal/abnormal . [facility] CenterLtctdoqDQTHPTACJF5732-61-29 10:28:00 Test Item Value Reference Range Interpretation Comments Segs-Bands # (test code = Segs-Bands #) 5.3 1.5-8.1 N [facility] CenterNzesuhoGVFEBTWJJQ4341-41-46 10:28:00 Test Item Value Reference Range Interpretation Comments Lymphocytes # (test code = Lymphocytes 1.3 1.0-5.5 N #) [facility] CenterUfcguyeSBCIVZPTVO4269-40-96 10:28:00 Test Item Value Reference Range Interpretation Comments Basophils (test code = 0.5 See_Comment N [Aut omated message] The Basophils) system which ge nerated this result tra nsmitted reference range : <=1.0. The reference r leo was not used to int erpret this result as normal/abnormal . [facility] CenterCrcwjalYOLMJMRXFK2938-16-52 10:28:00 Test Item Value Reference Range Interpretation Comments Monocytes (test code = Monocytes) 8.5 2.0-12.0 N [facility] CenterKbkmcqrWOLJLWSBJX6668-26-31 10:28:00 Test Item Value Reference Range Interpretation Comments Eosinophils (test code = 0.3 See_Comment N [A utomated message] The Eosinophils) system which ge nerated this result tra nsmitted reference range : <=4.0. The reference r leo was not used to int erpret this result as normal/abnormal . [facility] CenterVyvekzkEFFFSVNWTH4645-28-09 10:28:00 Test Item Value Reference Range Interpretation Comments Lymphocytes (test code = Lymphocytes) 17.3 20.0-40.0 L [facility] CenterJusfhxhZVETYPKPIB7549-96-43 10:28:00 Test Item Value Reference Range Interpretation Comments Segs (test code = Segs) 73.4 45.0-75.0 N [facility] GLUCOSE LDCQNNP2844-81-47 07:47:00 Test Item Value Reference Range Interpretation Comments Comment2 (test code = Comment2) Verify w/Lab [facility]villeCyccwvxJEVBZKGOP5686-23-34 21:58:00 Test Item Value Reference Range Interpretation Comments S Preg (test code = S Negative (08/19/2011 N Preg) 15:58:00) [facility]villePzjkmogOKINWXWTG2272-92-17 21:58:00 Test Item Value Reference Range Interpretation Comments Lipase Lvl (test code = Lipase Lvl) 169 73-393 N [facility]villeKmmtsmiZVUPETTWN5161-68-76 21:58:00 Test Item Value Reference Range Interpretation Comments ALT (test code = ALT) 54 See_Comment N [Auto mated message] The system which ge nerated this result transmit rohit reference range : <=65. The reference range was not used to interpr et this result as reji l/abnormal. [facility]villeBzwvhuuXCTFAJYBE5413-08-45 21:58:00 Test Item Value Reference Range Interpretation Comments Alk Phos (test code = Alk Phos) 110 39-136 N [facility]villeBnhyovgUQOZZALPD9948-86-44 21:58:00 Test Item Value Reference Range Interpretation Comments Bili Direct (test code 0.1 See_Comment N [Aut omated message] The = Bili Direct) system which generated this result tra nsmitted reference range : <=0.3. The reference r leo was not used to int erpret this result as reji l/abnormal. [facility]villeIxtbwaoNYIFPLIFS1577-78-37 21:58:00 Test Item Value Reference Range Interpretation Comments Bili Total (test code = Bili Total) 0.9 0.2-1.3 N [facility]villeMibosloLBJUFEBOA3698-34-19 21:58:00 Test Item Value Reference Range Interpretation Comments Albumin Lvl (test code = Albumin Lvl) 4.4 3.5-5.0 N [facility]villeSossuliOJLCZXYFZ4008-30-59 21:58:00 Test Item Value Reference Range Interpretation Comments Total Protein (test code = Total 8.8 6.4-8.4 H Protein) [facility]villeDjwubuhFNVJZKOTI1988-09-32 21:58:00 Test Item Value Reference Range Interpretation Comments Bili Indirect (test 0.8 See_Comment N [Automa rohit message] The code = Bili Indirect) system which generated this result tra nsmitted reference range : <=1.0. The reference r leo was not used to int erpret this result as normal/abnormal . [facility]villeEeilpxfFLPRARTVM3045-10-20 21:58:00 Test Item Value Reference Range Interpretation Comments AST (test code = AST) 36 See_Comment N [Auto mated message] The system which ge nerated this result transmit rohit reference range : <=37. The reference range was not used to interpr et this result as reji l/abnormal. [facility]villeDcucgazZVOILEOUK8148-42-10 21:58:00 Test Item Value Reference Range Interpretation Comments Globulin (test code = Globulin) 4.4 2.0-4.0 H [facility]AqjqbchPJHFTWDCC5814-86-35 21:58:00 Test Item Value Reference Range Interpretation Comments A/G Ratio (test code = A/G Ratio) 1.0 0.7-1.6 N [facility]EvpdmdgXVKVBKNEOS7502-89-74 21:58:00 Test Item Value Reference Range Interpretation Comments UA Bacteria (test code Occasional /HPF N = UA Bacteria) (08/19/2011 15:58:00) [facility] HospitalJzltwkwEGDZFEUXIF8731-54-38 21:58:00 Test Item Value Reference Range Interpretation Comments UA RBC (test 3-5 /HPF See_Comment A [Automated mes pastor] code = UA RBC) *ABN*(08/19/2011 The syste m which 15:58:00) generated this result transmitted ref erence range: <=2. The reference range was not used to int erpret this result as normal/abnormal . [facility] HospitalDjeiivaBWPPPMUHKM2991-60-60 21:58:00 Test Item Value Reference Range Interpretation Comments UA WBC (test code = 3 See_Comment [Automa rohit message] The UA WBC) system which ge nerated this result transmit rohit reference range : <=5. The reference range was not used to interpr et this result as reji l/abnormal. [facility] CenterWphfvlvMLAXWQGGAX0950-92-28 21:58:00 Test Item Value Reference Range Interpretation Comments UA Mucus (test code = Few /LPF (08/19/2011 N UA Mucus) 15:58:00) [facility] HospitalGrvgldvJJCADDJLMD4299-72-31 21:58:00 Test Item Value Reference Range Interpretation Comments UA Amorph Destiny (test Occasional /HPF A code = UA Amorph *ABN*(08/19/2011 Destiny) 15:58:00) [id number] 21:58:00 Test Item Value Reference Range Interpretation Comments UA Urobilinogen (test code = UA 0.2 0.1-1.0 N Urobilinogen) [facility] C[id number] 21:58:00 Test Item Value Reference Range Interpretation Comments UA Sq Epi (test code = Rare /LPF (08/19/2011 N UA Sq Epi) 15:58:00) [facility] [id number] 21:58:00 Test Item Value Reference Range Interpretation Comments Micro? (test code = Performed (08/19/2011 N Micro?) 15:58:00) [facility]pi[facility]RWPQDBEZFZ6039[facility]79-28 21:58:00 Test Item Value Reference Range Interpretation Comments UA Leuk Est (test Negative (08/19/2011 N code = UA Leuk Est) 15:58:00) [facility] CenterRsladksBKEJCVRAQY3158-08-99 21:58:00 Test Item Value Reference Range Interpretation Comments UA Nitrite (test code Negative (08/19/2011 N = UA Nitrite) 15:58:00) [facility] CenterGlvwjesLSXYTEZIWR7881-80-59 21:58:00 Test Item Value Reference Range Interpretation Comments UA pH (test code = UA pH) 5.5 1 5.0-8.0 N [facility] CenterUlnjoccZJPOXGSLBL6237-41-43 21:58:00 Test Item Value Reference Range Interpretation Comments UA Blood (test code = Trace *ABN*(08/19/2011 A UA Blood) 15:58:00) [facility] CenterOwvhaxyOKJGFYYYVL3389-77-83 21:58:00 Test Item Value Reference Range Interpretation Comments UA Bili (test code = Negative (08/19/2011 N UA Bili) 15:58:00) [facility] CenterBqxetalVAGRQRAMOR8339-04-08 21:58:00 Test Item Value Reference Range Interpretation Comments UA Ketones (test code = 80 mg/dL A UA Ketones) *ABN*(08/19/2011 15:58:00) [facility] CenterQbrghfdGZYRJQYVYM3062-89-60 21:58:00 Test Item Value Reference Range Interpretation Comments UA Glucose (test code = >=1000 mg/dL A UA Glucose) *ABN*(08/19/2011 15:58:00) [facility] CenterVnallbgJBAMACWWYJ2242-10-64 21:58:00 Test Item Value Reference Range Interpretation Comments UA Protein (test code Negative (08/19/2011 N = UA Protein) 15:58:00) [facility] CenterBhubakqIJEXOIELOL5135-16-93 21:58:00 Test Item Value Reference Range Interpretation Comments UA Turbidity (test code Slight Cloudy N = UA Turbidity) (08/19/2011 15:58:00) [facility] CenterCyreyzkYOHDBVAOOM3429-86-67 21:58:00 Test Item Value Reference Range Interpretation Comments UA Spec Grav (test code = UA Spec 1.025 1 Grav) [facility] CenterStcjnhsULGAFUCSSE1451-29-40 21:58:00 Test Item Value Reference Range Interpretation Comments UA Color (test code = Yellow (08/19/2011 N UA Color) 15:58:00) [facility] [place]MpvbjfrCNACAAXHV5905-72-54 21:13:00 Test Item Value Reference Range Interpretation Comments AST (test code = AST) 23 See_Comment N [Auto mated message] The system which ge nerated this result transmit rohit reference range : <=37. The reference range was not used to interpr et this result as reji l/abnormal. [facility] [place]villeJvdpwutRKNTPEUVP8820-76-05 21:13:00 Test Item Value Reference Range Interpretation Comments Bili Total (test code = Bili Total) 1.0 0.2-1.3 N [facility] [place]villeAplghtdWKGCJIDOV8247-01-80 21:13:00 Test Item Value Reference Range Interpretation Comments Alk Phos (test code = Alk Phos) 115 39-136 N [facility] [place]villeBzemoyxSRRDHOLKG5762-54-06 21:13:00 Test Item Value Reference Range Interpretation Comments ALT (test code = ALT) 56 See_Comment N [Auto mated message] The system which ge nerated this result transmit rohit reference range : <=65. The reference range was not used to interpr et this result as reji l/abnormal. [facility] [place]XdjvhyoFHSAXBHKG7076-29-13 21:13:00 Test Item Value Reference Range Interpretation Comments Total Protein (test code = Total 9.0 6.4-8.4 H Protein) [facility] [place]villeWjthiibYIWEDKCNP9502-24-21 21:13:00 Test Item Value Reference Range Interpretation Comments Albumin Lvl (test code = Albumin Lvl) 4.8 3.5-5.0 N [facility] [place]villeEehkxniXQOFYTNJZ2686-11-93 21:13:00 Test Item Value Reference Range Interpretation Comments Globulin (test code = Globulin) 4.2 2.0-4.0 H [facility] [place]villeRvscyxgNHXNLHOFK4039-69-25 21:13:00 Test Item Value Reference Range Interpretation Comments A/G Ratio (test code = A/G Ratio) 1.1 0.7-1.6 N [facility] [place]villeAhazzdcXPAAAVYPM6027-94-26 21:13:00 Test Item Value Reference Range Interpretation Comments B/C Ratio (test code = B/C Ratio) 30 6-25 H [facility] CenterJevvztqTPGZCQHLBG5176-49-43 21:13:00 Test Item Value Reference Range Interpretation Comments RBC Morph (test code = Normal (08/19/2011 N RBC Morph) 15:13:00) [facility] CenterFdtkzatCTUELWUVNX4797-77-46 21:13:00 Test Item Value Reference Range Interpretation Comments Large Plt (test code = Slight *ABN*(08/19/2011 A Large Plt) 15:13:00) [facility] CenterEbbptunLKTETNULRX7731-82-92 21:13:00 Test Item Value Reference Range Interpretation Comments Atypical Lymphs (test code = Atypical 0.0 N Lymphs) [facility] CenterLncymuzBJTRFZBTLG7983-59-25 21:13:00 Test Item Value Reference Range Interpretation Comments Bands (test code = 0.0 See_Comment N [Automat ed message] The Bands) system which ge nerated this result transmit rohit reference range : <=11.0. The reference r leo was not used to interpr et this result as reji l/abnormal. [facility] [place]villeYxevxboTDOIRWHLT4429-12-67 21:10:00 Test Item Value Reference Range Interpretation Comments O2 Sat Roberth (test code = O2 Sat Roberth) 74.0 40.0-70.0 H [facility] [place]villeGpixmceBIKZAFJIV3590-53-85 21:10:00 Test Item Value Reference Range Interpretation Comments Temp Roberth (test code = Temp Roberth) 37.0 [facility] [place]villeFpjolovATTOFUUXW8946-24-78 21:10:00 Test Item Value Reference Range Interpretation Comments pO2 Roberth (test code = pO2 Roberth) 42 20-49 N [facility] [place]villeTydiponTHSWFKAML4910-72-89 21:10:00 Test Item Value Reference Range Interpretation Comments HCO3 Roberth (test code = HCO3 Roberth) 17.3 22.0-26.0 L [facility] [place]villeXaxizauPSQUQIIGE4405-03-25 21:10:00 Test Item Value Reference Range Interpretation Comments pH Roberth (test code = pH Roberth) 7.34 7.28-7.42 N [facility] [place]villeRefqmioATXKWWJDB3017-83-66 21:10:00 Test Item Value Reference Range Interpretation Comments pCO2 Roberth (test code = pCO2 Roberth) 32 38-52 L [facility] CenterYcdzsrpBELRUSSXE5059-95-37 21:10:00 Test Item Value Reference Range Interpretation Comments BE Roberth (test code = -7 See_Comment L [Automa rohit message] The BE Roberth) system which ge nerated this result transmit rohit reference range : <=2. The reference range was not used to interpr et this result as reji l/abnormal. [facility]JixsileKKQMIWNFIT6012-91-12 20:34:00 Test Item Value Reference Range Interpretation Comments CDC-HIV 1/2 Ab (test Negative *NA*(08/19/2011 code = CDC-HIV 1/2 14:34:00) Ab) [facility]
[2021-09-07 20:46] LABS: Absolute Lymphocytes (CBC) 0.3 K/uL (0.7-4.9); Hematocrit 27.6 % (36.0-45.0); Lymphocytes % 9.3 % (15.3-44.8); MPV 10.2 fL (7.6-11.3); RBC Red Blood Cell Count 3.08 M/uL (3.86-4.86)
[2021-09-07] MEDS ORDERED: ONDANSETRON 4 MG/2 ML VIAL ONE (20:46)
[2021-09-07] MEDS ORDERED: HYDROMORPHONE HCL 0.5 MG/0.5 ML INJ ONE (20:46)
[2021-09-07 21:09] LABS: Bilirubin Direct 0.2 mg/dL (0-0.2); Bilirubin Total 0.5 mg/dL (0.2-1.0); Protein, Total 7.5 g/dL (6.4-8.2)
[2021-09-07 21:16] LABS: Potassium 5.6 mmol/L (3.5-5.1)
[2021-09-07 22:06] LABS: Blood Morphology Comment NOT SEEN (NOT SEEN); Platelet Estimate DECR; White Blood Cell Scan OK (OK)
--- NOTE | 2021-09-07 22:53 | ER ---
Nurse's Notes [facility] Name: Cathi Zaldivar Age: 40 yrs Sex: Female : 1980 Arrival Date: 09/07/2021 Time: 19:18 Bed 28 Private MD: Jose Miguel Morin Diagnosis: Hyperkalemia Presentation: 09/07 19:27 Chief complaint: Patient states: LUQ pain - began early this morning. N/V/D. ld1 Coronavirus screen: At this time, the client does not indicate any symptoms associated with coronavirus-19. Ebola Screen: No symptoms or risks identified at this time. Initial Sepsis Screen: Does the patient meet any 2 criteria? No. Patient's initial sepsis screen is negative. Does the patient have a suspected source of infection? No. Patient's initial sepsis screen is negative. Risk Assessment: Do you want to hurt yourself or someone else? Patient reports no desire to harm self or others. Onset of symptoms was September 07, 2021. 19:27 Method Of Arrival: Wheelchair ld1 19:27 Acuity: JESSICA 3 ld1 Triage Assessment: 19:27 General: Appears in no apparent distress. uncomfortable, Behavior is cooperative, ld1 appropriate for age, crying. Pain: Complains of pain in left upper quadrant Pain does not radiate. Pain currently is 10 out of 10 on a pain scale. Quality of pain is described as stabbing, throbbing, Pain began suddenly, Is continuous. Neuro: Level of Consciousness is awake, alert, obeys commands, Oriented to person, place, time, situation, Appropriate for age. Respiratory: Airway is patent Respiratory effort is even, unlabored, Respiratory pattern is regular, symmetrical. GI: Abdomen is round non-distended, Reports diarrhea, nausea, vomiting. 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 LMP N/A - Irregular menses ld1 Historical: - Allergies: 19:27 ambien; ld1 19:27 Codeine; ld1 19:27 GUAIFENESIN; ld1 19:27 Ibuprofen; ld1 19:27 Lisinopril; ld1 19:27 Morphine; ld1 19:27 Nitrofurantoin Macrocrystal; ld1 19:27 PENICILLINS; ld1 19:27 Prolixin; ld1 19:27 zolpidem tartrate; ld1 - PMHx: 19:27 "mental problems"; CHF; chronic kidney disease; cyclic vomiting syndrome; Diabetes - ld1 NIDDM; Dialysis; m-w-f; ENCEPHALOPATHY; Gastroparesis; Hypertension; ibs; liver failure; PERIPHERAL NEUROPATHY; pseudo aneurysm R groin; Seizures; - PSHx: 19:27 section; dialysis catheter R chest wall; eye removed; ld1 - Immunization history:: Adult Immunizations up to date, Client reports having NOT received the Covid vaccine. - Social history:: Smoking status: Patient reports the use of cigarette tobacco products, smokes one-half pack cigarettes per day, Patient/guardian denies using alcohol. Screenin:35 Abuse screen: Denies threats or abuse. Denies injuries from another. Nutritional tw5 screening: No deficits noted. Tuberculosis screening: No symptoms or risk factors identified. Fall Risk IV access (20 points). Assessment: 20:35 General: Reports "I am here for gastric paresis. It really hurts and I am so so tw5 nauseous.". Pain: Complains of pain in abdomen Pain currently is 10 out of 10 on a pain scale. Neuro: Level of Consciousness is awake, alert, obeys commands, Oriented to person, place, time, situation. Respiratory: Airway is patent Trachea midline Respiratory effort is even, unlabored. Derm: Skin is intact, is healthy with good turgor, Skin is pink, warm \\T\\ dry. 20:53 General: Reports "I am suppose to be on oxygen. Ever since I had covid. Could you put a tw5 NC on me please?" Nasal Cannula placed on patient. Cardiovascular: Capillary refill is sluggish in bilateral fingers. 23:30 General: Behavior is drowsy. Pain: Pain currently is 7 out of 10 on a pain scale. GI: tw5 Pt is actively vomiting bile, Bowel sounds present X 4 quads. Abd is soft X 4 quads. 09/08 18:25 Reassessment: [facility] Pt transported to unit. Nurse notified. ic1 Vital Signs: 09/07 19:27 BP 193 / 91; Pulse 86; Resp 18; Temp 98.4(TE); Pulse Ox 99% on R/A; Weight 74 kg; ld1 Height 5 ft. 2 in. (157.48 cm); Pain 10/10; 20:35 BP 200 / 94; Pulse 90; Resp 18; Pulse Ox 99% on R/A; Pain 10/10; tw5 20:53 BP 198 / 94; Pulse 87; Resp 18; Pulse Ox 95% on 3 lpm NC; tw5 22:01 Pain 3/10; tw5 22:03 BP 184 / 94; Pulse 90; Resp 20; Pulse Ox 99% on 3 lpm NC; tw5 23:30 BP 201 / 90; Pulse 118; Resp 20; Pulse Ox 89% on 3 lpm NC; tw5 23:30 Pulse Ox 100% on 3 lpm NC; tw5 09/08 00:25 BP 181 / 83; Pulse 107; Resp 20; Pulse Ox 100% on 3 lpm NC; tw5 09/07 19:27 Body Mass Index 29.84 (74.00 kg, 157.48 cm) ld1 09/07 23:30 Patient had to be prompted to take deep breaths in through the nose. Seen breathing tw5 through the mouth while asleep. Vitals: 23:30 Cardiac Rhythm Assessment. tw5 ED Course: 19:18 Patient arrived in ED. es 19:18 Jose Miguel Morin DO is Private Physician. es 19:27 Arm band placed on right wrist. ld1 19:29 Triage completed. ld1 19:43 Anand Gallo NP is PHCP. pm1 19:53 Micheline Guerra is Primary Nurse. tw5 20:35 Patient has correct armband on for positive identification. Placed in gown. Bed in low tw5 position. Call light in reach. Side rails up X 1. Pulse ox on. NIBP on. Door closed. Moved to private room. Warm blanket given. Pillow given. Oral care given. 20:35 LFT's Sent. tw5 20:35 BMP Sent. tw5 20:35 CBC with Diff Sent. tw5 20:52 LFT's Sent. tw5 20:52 BMP Sent. tw5 20:53 CBC with Diff Sent. tw5 20:53 CBC Smear Scan Sent. tw5 20:53 Initial lab(s) drawn, by ne, sent to lab. Inserted saline lock: 20 gauge in left tw5 forearm, using aseptic technique. Blood collected. Ultra Sound Guided IV. 22:01 EKG done, by ED staff, reviewed by Anand Gallo NP. tw5 22:02 No provider procedures requiring assistance completed. tw5 22:52 Hugh Stallworth MD is Hospitalizing Provider. pm1 23:30 COVID-19/FLU A+B Sent. tw5 23:30 COVID-19/FLU A+B (Document "Date of Onset" if Symptomatic) Sent. tw09/08 02:57 José Miguel Saleh DO is Attending Physician. pm1 08:36 Primary Nurse role handed off by Micheline Guerra Administered Medications: 09/07 20:52 Drug: Dilaudid (HYDROmorphone) 1 mg Route: IVP; Site: left forearm; tw5 22:01 Follow up: Pain 3/10 Adult; Response: No adverse reaction; Pain is decreased; RASS: tw5 Drowsy (-1) 20:52 Drug: Zofran (Ondansetron) 4 mg Route: IVP; Site: left forearm; tw5 22:00 Follow up: Response: No adverse reaction; Nausea is decreased tw5 23:10 Drug: Albuterol 5 mg Route: Inhalation; tw 23:25 Follow up: Response: No adverse reaction tw5 23:11 Not Given (Patient Refused; Provider notifed. Stated she will be dialysis in the tw5 morning. Patient activly vomiting. ): Kayexalate (polystyrene) 45 grams PO once 23:24 Drug: D50W 50 ml {Note: Gave D10W in 250ml Per recent hosptial protocol due to sort tw5 supply of D50W.} Route: IVP; Site: left forearm; 23:25 Follow up: Response: No adverse reaction tw 23:25 Drug: Calcium Gluconate 1 grams Route: IVPB; Infused Over: 60 mins; Site: left forearm; tw09/08 00:23 Follow up: Response: No adverse reaction; IV Status: Completed infusion; IV Intake: [id number] 09/07 23:25 Drug: Insulin Regular Human 10 units {Co-Signature: as6 (Yuri Mathis RN).} Route: tw5 IVP; Site: left forearm; 09/08 00:23 Follow up: Response: No adverse reaction tw09/07 23:38 Not Given (Patient is drowsy and hard to keep awake at this time. pulse ox dropped to tw5 low 90's. ): Phenergan (promethazine) 12.5 mg IVP once 23:38 Not Given (Patients is drowsy and hard to keep awake at this time.): Dilaudid tw5 (HYDROmorphone) 1 mg IVP once; RASS on ADMIN: Combtv4, Very Agttd3, Agttd2, Rstlss1, AlertClm0, Drwsy-1, Lt Sdtn-2, Mod Sdtn-3, Dp Sdtn-4, UnArsble-5 Intake: 09/08 00:23 IV: 50ml; Total: 50ml. tw5 Outcome: 09/07 22:53 Decision to Hospitalize by Provider. pm1 09/08 18:25 Patient left the ED. ic1 Signatures: Shruthi Stiles Edna es Marinas, Patrick, NP PRESSURE VESSEL INSPECTOR pm1 Sarah Clark, TABATHA RN ld1 Micheline Guerra tw5 Nelli Bowman RN RN ic1 Yuri Mathis RN as6 Corrections: (The following items were deleted from the chart) 09/07 23:39 23:30 BP 201 / 90; Pulse 118bpm; Resp 20bpm; Pulse Ox 100% 3 lpm Nasal Cannula; tw5 tw5
--- NOTE | 2021-09-07 22:53 | EDPHYS ---
Physician Documentation [facility] Name: Cathi Zaldivar Age: 40 yrs Sex: Female : 1980 Arrival Date: 09/07/2021 Time: 19:18 Bed 28 Private MD: Jose Miguel Morin ED Physician José Miguel Saleh HPI: 09/07 19:53 This 40 yrs old Female presents to ER via Wheelchair with complaints of pm1 Abdominal Pain, Vomiting. 19:53 The patient presents with abdominal pain in the epigastric area. Onset: The pm1 symptoms/episode began/occurred today. The symptoms do not radiate. Associated signs and symptoms: Pertinent positives: nausea and vomiting, Pertinent negatives: chest pain, diarrhea, fever, shortness of breath. The symptoms are described as achy, burning. Modifying factors: The symptoms are alleviated by nothing, the symptoms are aggravated by nothing. Severity of pain: in the emergency department the pain is actually worse. The patient has experienced similar episodes in the past, multiple times, today's symptoms are similar, to previous Gastroparesis. The patient has not recently seen a physician. 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 N/A - Irregular menses ld1 Historical: - Allergies: 19:27 ambien; ld1 19:27 Codeine; ld1 19:27 GUAIFENESIN; ld1 19:27 Ibuprofen; ld1 19:27 Lisinopril; ld1 19:27 Morphine; ld1 19:27 Nitrofurantoin Macrocrystal; ld1 19:27 PENICILLINS; ld1 19:27 Prolixin; ld1 19:27 zolpidem tartrate; ld1 - PMHx: 19:27 "mental problems"; CHF; chronic kidney disease; cyclic vomiting syndrome; Diabetes - ld1 NIDDM; Dialysis; m-w-f; ENCEPHALOPATHY; Gastroparesis; Hypertension; ibs; liver failure; PERIPHERAL NEUROPATHY; pseudo aneurysm R groin; Seizures; - PSHx: 19:27 section; dialysis catheter R chest wall; eye removed; ld1 - Immunization history:: Adult Immunizations up to date, Client reports having NOT received the Covid vaccine. - Social history:: Smoking status: Patient reports the use of cigarette tobacco products, smokes one-half pack cigarettes per day, Patient/guardian denies using alcohol. ROS: 19:53 Constitutional: Negative for fever, chills, and weight loss. pm1 19:53 Cardiovascular: Negative for chest pain, palpitations, and edema, Respiratory: Negative for shortness of breath, cough, wheezing, and pleuritic chest pain. 19:53 Back: Negative for injury and pain, MS/Extremity: Negative for injury and deformity, Skin: Negative for injury, rash, and discoloration, Neuro: Negative for headache, weakness, numbness, tingling, and seizure. 19:53 Abdomen/GI: Positive for abdominal pain, nausea and vomiting, Negative for diarrhea, constipation. 19:53 All other systems are negative. Exam: 19:53 Constitutional: This is a well developed, well nourished patient who is awake, alert, pm1 and in no acute distress. Head/Face: Normocephalic, atraumatic. 19:53 Back: No spinal tenderness. No costovertebral tenderness. Full range of motion. Skin: Warm, dry with normal turgor. Normal color with no rashes, no lesions, and no evidence of cellulitis. MS/ Extremity: Pulses equal, no cyanosis. Neurovascular intact. Full, normal range of motion. 19:53 Cardiovascular: Exam negative for acute changes, Rate: normal, Rhythm: regular, Pulses: no pulse deficits are appreciated, Heart sounds: normal. 19:53 Respiratory: Exam negative for acute changes, respiratory distress, shortness of breath. 19:53 Abdomen/GI: Exam negative for Inspection: abdomen appears normal, Palpation: abdomen is soft and non-tender, in all quadrants. 19:53 Neuro: Exam negative for acute changes, Orientation: is normal, Mentation: is normal, Motor: is normal, moves all fours. Vital Signs: 19:27 BP 193 / 91; Pulse 86; Resp 18; Temp 98.4(TE); Pulse Ox 99% on R/A; Weight 74 kg; ld1 Height 5 ft. 2 in. (157.48 cm); Pain 10/10; 20:35 BP 200 / 94; Pulse 90; Resp 18; Pulse Ox 99% on R/A; Pain 10/10; tw5 20:53 BP 198 / 94; Pulse 87; Resp 18; Pulse Ox 95% on 3 lpm NC; tw5 22:01 Pain 3/10; tw5 22:03 BP 184 / 94; Pulse 90; Resp 20; Pulse Ox 99% on 3 lpm NC; tw5 23:30 BP 201 / 90; Pulse 118; Resp 20; Pulse Ox 89% on 3 lpm NC; tw5 23:30 Pulse Ox 100% on 3 lpm NC; tw5 09/08 00:25 BP 181 / 83; Pulse 107; Resp 20; Pulse Ox 100% on 3 lpm NC; tw5 09/07 19:27 Body Mass Index 29.84 (74.00 kg, 157.48 cm) ld1 09/07 23:30 Patient had to be prompted to take deep breaths in through the nose. Seen breathing tw5 through the mouth while asleep. MDM: 19:43 Patient medically screened. pm1 22:43 Data reviewed: vital signs. Data interpreted: Pulse oximetry: on room air is 99 %. pm1 Interpretation: normal. 22:51 Physician consultation: Bill Cooper MD was called at 22:52, was contacted at 22:52, pm1 regarding consult, patient's condition, and will see patient tomorrow, would like admission per Dr. Hugh Stallworth MD. 09/07 19:53 Order name: CBC with Diff; Complete Time: 22:15 pm1 09/07 19:53 Order name: BMP; Complete Time: 21:50 pm1 09/07 19:53 Order name: LFT's; Complete Time: 21:50 pm1 09/07 20:50 Order name: CBC Smear Scan; Complete Time: 22:15 EDMS 09/07 22:55 Order name: COVID-19/FLU A+B (Document "Date of Onset" if Symptomatic) cs9 09/07 22:56 Order name: COVID-19/FLU A+B; Complete Time: 01:07 EDMS 09/08 04:32 Order name: CBC with Automated Diff EDMS 09/08 04:55 Order name: Comprehensive Metabolic Panel EDMS 09/08 06:53 Order name: Glucose, Ancillary Testing EDMS 09/08 07:58 Order name: Glucose, Ancillary Testing EDMS 09/08 11:35 Order name: Glucose, Ancillary Testing EDMS 09/08 16:58 Order name: Glucose, Ancillary Testing EDMS 09/07 19:53 Order name: IV Saline Lock; Complete Time: 20:35 pm1 09/07 21:51 Order name: EKG; Complete Time: 21:52 pm1 09/07 21:51 Order name: EKG - Nurse/Tech; Complete Time: 22:01 pm1 Administered Medications: 20:52 Drug: Dilaudid (HYDROmorphone) 1 mg Route: IVP; Site: left forearm; tw5 22:01 Follow up: Pain 3/10 Adult; Response: No adverse reaction; Pain is decreased; RASS: tw5 Drowsy (-1) 20:52 Drug: Zofran (Ondansetron) 4 mg Route: IVP; Site: left forearm; tw5 22:00 Follow up: Response: No adverse reaction; Nausea is decreased tw5 23:10 Drug: Albuterol 5 mg Route: Inhalation; tw5 23:25 Follow up: Response: No adverse reaction tw5 23:11 Not Given (Patient Refused; Provider notifed. Stated she will be dialysis in the tw5 morning. Patient activly vomiting. ): Kayexalate (polystyrene) 45 grams PO once 23:24 Drug: D50W 50 ml {Note: Gave D10W in 250ml Per recent hosptial protocol due to sort tw5 supply of D50W.} Route: IVP; Site: left forearm; 23:25 Follow up: Response: No adverse reaction tw 23:25 Drug: Calcium Gluconate 1 grams Route: IVPB; Infused Over: 60 mins; Site: left forearm; tw5 09/08 00:23 Follow up: Response: No adverse reaction; IV Status: Completed infusion; IV Intake: [id number] 09/07 23:25 Drug: Insulin Regular Human 10 units {Co-Signature: as6 (Yuri Mathis RN).} Route: tw5 IVP; Site: left forearm; 09/08 00:23 Follow up: Response: No adverse reaction tw5 09/07 23:38 Not Given (Patient is drowsy and hard to keep awake at this time. pulse ox dropped to tw5 low 90's. ): Phenergan (promethazine) 12.5 mg IVP once 23:38 Not Given (Patients is drowsy and hard to keep awake at this time.): Dilaudid tw5 (HYDROmorphone) 1 mg IVP once; RASS on ADMIN: Combtv4, Very Agttd3, Agttd2, Rstlss1, AlertClm0, Drwsy-1, Lt Sdtn-2, Mod Sdtn-3, Dp Sdtn-4, UnArsble-5 Disposition Summary: 09/07/21 22:53 Hospitalization Ordered Hospitalization Status: Observation pm1 Provider: Hugh Stallworth pm1 Condition: Stable pm1 Problem: new pm1 Symptoms: have improved pm1 Bed/Room Type: Standard pm1 Location: Telemetry/MedSurg (observation)(09/08/21 15:54) bd Room Assignment: 217(09/08/21 15:54) bd Diagnosis - Hyperkalemia pm1 Forms: - Medication Reconciliation Form pm1 - SBAR form pm1 Signatures: Dispatcher [employer] EDMS Shruthi Stiles Lee, TABLE ASSEMBLER-C TABLE ASSEMBLER-Cla1 Tatiana Antonio, RN RN cg Anand Gallo, CHAPARRITA ENERGY PROFESSIONAL pm1 Sarah Clark RN RN 1 Micheline Guerra tw5 Yuri Mathis RN as6 Corrections: (The following items were deleted from the chart) 23:49 22:53 Telemetry/MedSurg (observation) pm1 cg 23:49 22:53 pm1 cg 09/08 15:54 09/07 23:49 RUST ER HOLD cg bd 09/08 15:54 09/07 23:49 ERHOLD- cg bd
[2021-09-07] MEDS ORDERED: INSULIN -REGULAR HUMAN 50 UNIT/0.5 ML ML ONE (22:57)
[2021-09-07] MEDS ORDERED: ALBUTEROL 2.5 MG/3 ML NEB SOL ONE (22:58)
[2021-09-07] MEDS ORDERED: CALCIUM GLUCONATE 1 GM IVPB 1 GM/50 ML BAG IV ONE (22:58)
[2021-09-07] MEDS ORDERED: D10W 250 ML IV ONE (22:59)
[2021-09-07] MEDS ORDERED: SOD POLYSTYREN SUL 15 GM/60 ML UCUP ONE (23:00)
--- NOTE | 2021-09-07 23:55 | P.HP ---
Certification for Inpatient Patient admitted to: Observation With expected LOS: <2 Midnights Patient will require the following post-hospital care: None Practitioner: I am a practitioner with admitting privileges, knowledge of patient current condition, hospital course, and medical plan of care. Services: Services provided to patient in accordance with Admission requirements found in Title 42 Section 412.3 of the Code of Federal Regulations Patient History Date of Service: 09/07/21 History of Present Illness: 40-year-old female with history of ESRD on HD, diabetes mellitus type 2insulin-dependent, gastroparesis, chronic diastolic congestive heart failure, hypertension, seizure disorder presents the emergency department for abdominal pain, vomiting. Patient reports this episode very similar to previous with gastroparesis. Patient was evaluated in the emergency department her labs were significant for hyperkalemia with a potassium 5.6 with peaked T waves she has thrombocytopenia chronically her platelets are 85 hemoglobin 9.1. ED provider wishes to admit for further evaluation and management, dialysis. Case was discussed with nephrology while patient was in the emergency department. Allergies zolpidem tartrate [From Ambien] Allergy (Intermediate, Verified 10/17/16 23:08) Itching/Hives/Rash codeine [Codeine] Allergy (Verified 10/17/16 23:08) Hives fluphenazine enanthate [From Prolixin] Allergy (Verified 10/17/16 23:08) ARM NUMBNESS fluphenazine HCl [From Prolixin] Allergy (Verified 10/17/16 23:08) ARM NUMBNESS guaifenesin [From Prolex D] Allergy (Verified 10/17/16 23:08) Hives lisinopril Allergy (Verified 04/21/17 10:26) Anaphylaxis morphine Allergy (Verified 10/01/20 10:03) Itching Penicillins Allergy (Verified 10/17/16 23:08) Hives phenylephrine HCl [From Prolex D] Allergy (Verified 10/17/16 23:08) Hives nitrofurantoin Adverse Reaction (Verified 08/07/17 23:41) liver failure Home Medications: Calcium Acetate [Phoslo*] 2 cap PO TIDWM 03/05/20 Sertraline [Zoloft*] 50 mg PO DAILY 03/05/20 Pantoprazole Sodium [Protonix] 1 tab PO DAILY 30 Days #30 tablet. 03/06/20 Gabapentin 1 tab PO BID 07/22/20 Metoprolol Succinate 25 mg PO DAILY 07/22/20 Pravastatin Sodium 1 tab PO DAILY 07/22/20 Doxazosin [Cardura*] 4 mg PO BEDTIME 09/30/20 Furosemide [Lasix*] 40 mg PO BID 09/30/20 Ondansetron [Zofran (Odt)*] 4 mg PO Q8H PRN 14 Days #30 tab 10/01/20 Ascorbate Calcium [Vitamin C] 500 mg PO TID #90 tablet 10/28/20 Nepro Shake [Nepro*] 237 ml PO TID #60 can 11/07/20 Cholecalciferol (Vitamin D3) [Vitamin D 5,000 IU Cap*] 5,000 unit PO DAILY #30 cap 01/16/21 Hydrocodone 5/APAP 325 [[place] 5/325*] 1 tab PO Q6H PRN #30 tab 07/02/21 clonazePAM [Klonopin] 0.5 mg PO TID PRN #60 tablet 07/02/21 Heparin [Heparin 1,000 units/mL *] 6,000 unit IV EVERY HD PRN vial 07/31/21 Metoclopramide [Reglan*] 5 ml PO TID PRN 07/31/21 Buspirone HCl [Buspar] 1 tab PO BID 08/22/21 Divalproex Sodium [Depakote] 1 tab PO BID 08/22/21 Quetiapine Fumarate [Seroquel] 25 mg PO BEDTIME 08/22/21 - Past Medical/Surgical History Diabetic: Yes -: DM Type 2 -: Seizure disorder -: ESRD on HD -: DM Gastroparesis -: DM Neuropathy -: Insomnia -: Obesity -: JAYLA -: Hypertension -: Post traumatic stress disorder -: Schizoaffective disorder -: CHF, diastolic -: I/D of the right elbow -: 2 previous C-sections -: Tubal ligation Psychosocial/ Personal History: She is , she has 2 children, she does not work. She lives with her boyfriend and daughter. - Family History Mother -: Hypertension, Diabetes, Cancer, Other (see notes) Notes: hypothyroid, asthma, breast cancer Father -: Diabetes, Cancer Notes: - stomach/ lung/ prostate cancer, diabetes - Social History Alcohol use: No CD- Drugs: No Caffeine use: No Place of Residence: Home Review of Systems 10-point ROS is otherwise unremarkable Gastrointestinal: Nausea, Vomiting, Abdominal Pain Physical Examination - Physical Exam General: Alert, In no apparent distress, Oriented x3 HEENT: Atraumatic, PERRLA, Mucous membr. moist/pink, EOMI, Sclerae nonicteric Neck: Supple, 2+ carotid pulse no bruit, No LAD, Without JVD or thyroid abnormality Respiratory: Diminished Cardiovascular: Regular rate/rhythm, Normal S1 S2 Gastrointestinal: Normal bowel sounds, No tenderness Musculoskeletal: No tenderness Integumentary: No rashes Neurological: Normal gait, Normal speech, Normal strength at 5/5 x4 extr, Normal tone, Normal affect Lymphatics: No axilla or inguinal lymphadenopathy - Studies Laboratory Data (last 24 hrs) 09/07/21 20:30: Sodium 137, Potassium 5.6 H*, BUN 50 H, Creatinine 8.41 H*, Glucose 132 H, Total Bilirubin 0.5, AST 18, ALT 15, Alkaline Phosphatase 65 09/07/21 20:30: WBC 3.60 L, Hgb 9.1 L, Hct 27.6 L, Plt Count 85 L* Assessment and Plan - Plan Assessment: ESRD on HD with hyperkalemia Diabetes mellitus type 2insulin-dependent with gastroparesis Acute on chronic diastolic congestive heart failure Hypertension Cirrhosis of liver, thrombocytopenia Anemia of chronic disease Plan: ESRD on HD with hyperkalemia: Nephrology consulted, they were contacted by the ED provider while she is in the emergency department therapy T waves on the EKG. Given potassium cocktail in the ER, plan for dialysis tomorrow. Diabetes mellitus type 2insulin-dependent with gastroparesis: As needed pain medications and antiemetics. Acute on chronic diastolic congestive heart failure: Continue volume status management with dialysis, continue home medications. Hypertension: Obtain and continue home medications. Cirrhosis of liver, thrombocytopenia: Obtain and continue home medications monitor daily lab Anemia of chronic disease: Daily CBC. DVT PPX: Heparin Code status: Full code Discharge Plan: Home Plan to discharge in: 24 Hours - Advance Directives Does patient have a Living Will: No Does patient have a Durable POA for Healthcare: No - Code Status/Comfort Care Code Status Assessed: Yes (Full code) Critical Care: No Time Spent Managing Pts Care (In Minutes): 55
[2021-09-08 00:40] LABS: SARS-COV-2 RT PCR NEGATIVE (NEGATIVE)
[2021-09-08 01:25] VITALS: BMI 29.7
[2021-09-08 04:29] LABS: Absolute Lymphocytes (CBC) 0.2 K/uL (0.7-4.9); Hematocrit 24.6 % (36.0-45.0); Lymphocytes % 6.5 % (15.3-44.8); MPV 10.5 fL (7.6-11.3); RBC Red Blood Cell Count 2.67 M/uL (3.86-4.86)
[2021-09-08] MEDS ORDERED: HYDROMORPHONE HCL 0.5 MG/0.5 ML INJ ONE (04:44)
[2021-09-08] MEDS ORDERED: ONDANSETRON 4 MG/2 ML VIAL ONE ×2 (04:44→11:29)
[2021-09-08 04:50] LABS: Albumin 3.3 g/dL (3.4-5.0); Bilirubin Total 0.4 mg/dL (0.2-1.0); Protein, Total 6.3 g/dL (6.4-8.2)
[2021-09-08] MEDS: HYDROMORPHONE HCL 0.5 MG/0.5 ML INJ IV PRN ×3 (04:52→22:20)
[2021-09-08] MEDS: ONDANSETRON 4 MG/2 ML VIAL IV PRN ×3 (04:53→22:20)
[2021-09-08 04:55] LABS: Potassium 5.6 mmol/L (3.5-5.1)
--- NOTE | 2021-09-08 06:28 | P.PN ---
Date of Service: 09/08/21 Subjective: no significant change in symptoms since admission continues with nausea/vomiting reports SOB and cough, with body aches x2 days, +flu ROS: 10 point ROS as noted above, otherwise negative Physical exam GEN: tired, slight lethargy HEENT: Normal conjunctiva, sclera anicteric CV: Regular rate and rhythm Pulm: Nonlabored respirations on 2L NC ABD: Soft, mild discomfort, non-distended Integumentary: No rashes Neuro: moves extremities, slight lethargy Problem List ESRD on HD with hyperkalemia Diabetes mellitus type 2insulin-dependent with gastroparesis Acute on chronic diastolic congestive heart failure Hypertension Cirrhosis of liver, thrombocytopenia Anemia of chronic disease nephrology consulted in ED, to undergo HD today hgb and plt decreased flu+, start tamiflu patient lethargic, +nausea chronic gastroparesis low grade temp DVT PPX: Heparin Code status: Full code Dispo: home, in next 24hrs Time Spent Managing Pts Care (In Minutes): 35
[2021-09-08] MEDS: INSULIN -REGULAR HUMAN 50 UNIT/0.5 ML ML SQ SCH ×4 (07:30→20:46)
--- NOTE | 2021-09-08 08:20 | EKG ---
Test Date: 2021-09-07 Test Time: 22:00:51 [place]: MEASUREMENT RESULTS: Intervals: Rate: 91 NE: 136 QRSD: 80 QT: 360 QTc: 442 [place]: P: 58 NE: 136 QRS: 70 T: 59 INTERPRETIVE STATEMENTS: Normal sinus rhythm Normal ECG Compared to ECG 08/20/2021 06:27:10 No significant changes Electronically Signed On 09-08-21 08:19:25 CDT by Juan Hogan
[2021-09-08] MEDS ORDERED: NA CHLORIDE 0.9% 1,000 ML IV PRN (10:50)
[2021-09-08] MEDS ORDERED: MANNITOL 25% 12.5 GM/50 ML VIAL IV PRN (10:50)
[2021-09-08] MEDS ORDERED: ALBUMIN HUMAN 25% 50 ML IV SCH (11:00)
[2021-09-08] MEDS ORDERED: OSELTAMIVIR PHOSPHATE 30 MG/5 ML SUSPENSION UD PO ONE (11:00)
[2021-09-08] MEDS ORDERED: EPOETIN ALFA-EPBX 10,000 UNIT/ML VIAL SQ ONE (11:00)
--- NOTE | 2021-09-08 11:02 | P.CNS ---
Date of Consult: 09/08/21 Reason for Consult: ESRD Requesting Physician: Hugh Stallworth Chief Complaint: Abdominal pain with vomiting History of Present Illness: 40-year-old female with history of ESRD on HD, diabetes mellitus type 2insulin-dependent, gastroparesis, chronic diastolic congestive heart failure, hypertension, seizure disorder presents the emergency department for abdominal pain, vomiting. Patient reports this episode very similar to previous with gastroparesis. Patient was evaluated in the emergency department her labs were significant for hyperkalemia with a potassium 5.6 with peaked T waves she has thrombocytopenia chronically her platelets are 85 hemoglobin 9.1. ED provider wishes to admit for further evaluation and management, dialysis. Case was discussed with nephrology while patient was in the emergency department. Allergies zolpidem tartrate [From Ambien] Allergy (Intermediate, Verified 10/17/16 23:08) Itching/Hives/Rash codeine [Codeine] Allergy (Verified 10/17/16 23:08) Hives fluphenazine enanthate [From Prolixin] Allergy (Verified 10/17/16 23:08) ARM NUMBNESS fluphenazine HCl [From Prolixin] Allergy (Verified 10/17/16 23:08) ARM NUMBNESS guaifenesin [From Prolex D] Allergy (Verified 10/17/16 23:08) Hives lisinopril Allergy (Verified 04/21/17 10:26) Anaphylaxis morphine Allergy (Verified 10/01/20 10:03) Itching Penicillins Allergy (Verified 10/17/16 23:08) Hives phenylephrine HCl [From Prolex D] Allergy (Verified 10/17/16 23:08) Hives nitrofurantoin Adverse Reaction (Verified 08/07/17 23:41) liver failure Home medications list reviewed: Yes Home Medications: Calcium Acetate [Phoslo*] 2 cap PO TIDWM 03/05/20 Sertraline [Zoloft*] 50 mg PO DAILY 03/05/20 Pantoprazole Sodium [Protonix] 1 tab PO DAILY 30 Days #30 tablet. 03/06/20 Metoprolol Succinate 25 mg PO DAILY 07/22/20 Pravastatin Sodium 1 tab PO DAILY 07/22/20 Doxazosin [Cardura*] 4 mg PO BEDTIME 09/30/20 Furosemide [Lasix*] 40 mg PO BID 09/30/20 Ondansetron [Zofran (Odt)*] 4 mg PO Q8H PRN 14 Days #30 tab 10/01/20 Nepro Shake [Nepro*] 237 ml PO TID #60 can 11/07/20 Cholecalciferol (Vitamin D3) [Vitamin D 5,000 IU Cap*] 5,000 unit PO DAILY #30 cap 01/16/21 Heparin [Heparin 1,000 units/mL *] 6,000 unit IV EVERY HD PRN vial 07/31/21 Metoclopramide [Reglan*] 5 ml PO TID PRN 07/31/21 Buspirone HCl [Buspar] 1 tab PO BID 08/22/21 Divalproex Sodium [Depakote] 1 tab PO BID 08/22/21 Quetiapine Fumarate [Seroquel] 25 mg PO BEDTIME 08/22/21 Ascorbate Calcium [Vitamin C] 500 mg PO BID 09/08/21 clonazePAM [Klonopin] 0.5 mg PO DAILY 09/08/21 - Past Medical/Surgical History Diabetic: Yes -: DM Type 2 -: Seizure disorder -: ESRD on HD -: DM Gastroparesis -: DM Neuropathy -: Insomnia -: Obesity -: JAYLA -: Hypertension -: Post traumatic stress disorder -: Schizoaffective disorder -: CHF, diastolic -: I/D of the right elbow -: 2 previous C-sections -: Tubal ligation Psychosocial/ Personal History: She is , she has 2 children, she does not work. She lives with her boyfriend and daughter. - Family History Mother Medical History: Hypertension, Diabetes, Cancer, Other (see notes) Notes: hypothyroid, asthma, breast cancer Father Medical History: Diabetes, Cancer Notes: - stomach/ lung/ prostate cancer, diabetes - Social History Smoking Status: Current some day smoker Alcohol use: No CD- Drugs: No Caffeine use: No Place of Residence: Home Review of Systems 10-point ROS is otherwise unremarkable General: Weakness, Malaise Gastrointestinal: Nausea, Abdominal Pain Neurological: Weakness Physical Examination Temp Pulse Resp BP Pulse Ox 99.1 F 82 16 146/81 H 97 09/08/21 04:00 09/08/21 07:48 09/08/21 07:48 09/08/21 07:48 09/08/21 07:48 General: Oriented x3, Cooperative HEENT: Atraumatic Neck: Supple Respiratory: Diminished Cardiovascular: Regular rate/rhythm, Edema Gastrointestinal: Soft and benign, Non-distended Musculoskeletal: No clubbing, No contractures Integumentary: No rashes, No cyanosis Neurological: Normal speech Laboratory Data (last 24 hrs) 09/07/21 20:30: Sodium 137, Potassium 5.6 H*, BUN 50 H, Creatinine 8.41 H*, Glucose 132 H, Total Bilirubin 0.5, AST 18, ALT 15, Alkaline Phosphatase 65 09/07/21 20:30: WBC 3.60 L, Hgb 9.1 L, Hct 27.6 L, Plt Count 85 L* Conclusions/Impression: ESRD -HD MWF -Seen and examined on HD Hyperkalemia -Renal diet -HD TIW HTN with CKD/ CHF -Start Metoprolol BID Diastolic CHF, chronic -HD with UF -Low sodium diet DM II with CKD, Gastroparesis, Polyneuropathy -RISS Moderate malnutrition -Start Nepro Anemia in CKD -Give Retacrit CKD MBD -Start Vitamin D -Start Renvela Thank you kindly for the consultation.
[2021-09-08] MEDS ORDERED: HYDROMORPHONE HCL 2 MG/ML inj ONE (11:29)
[2021-09-08] MEDS: SEVELAMER CARBONATE 800 MG TABLET PO SCH ×2 (12:00→17:00)
[2021-09-08] MEDS ORDERED: OSELTAMIVIR 75 MG CAP ONE (12:36)
[2021-09-08] MEDS ORDERED: OSELTAMIVIR PHOSPHATE 30 MG/5 ML SUSPENSION UD ONE (12:38)
[2021-09-08] MEDS: NEPRO SHAKE 237 ML CAN PO SCH ×2 (14:00→21:00)
[2021-09-08] MEDS ORDERED: DIPHENHYDRAMINE 50 MG/ML VIAL ONE ×2 (14:19→22:21)
[2021-09-08] MEDS ORDERED: DIPHENHYDRAMINE 50 MG/ML VIAL IV ONE (16:01)
[2021-09-08] MEDS ORDERED: METOPROLOL TAR 25 MG TAB ONE (17:59)
[2021-09-08] MEDS: METOPROLOL TAR 25 MG TAB PO SCH (18:00)
[2021-09-08] MEDS: DOCUSATE NA 100 MG CAP PO SCH (20:25)
[2021-09-08] MEDS ORDERED: HYDRALAZINE HCL 20 MG/ML VIAL IV PRN (20:55)
[2021-09-08] MEDS ORDERED: OSELTAMIVIR PHOSPHATE 30 MG/5 ML SUSPENSION UD PO SCH (21:00)
[2021-09-08] MEDS ORDERED: HYDRALAZINE HCL 20 MG/ML VIAL ONE (21:26)
[2021-09-08] MEDS: DIPHENHYDRAMINE 50 MG/ML VIAL IV PRN (22:20)
[2021-09-09] MEDS ORDERED: PROMETHAZINE INJ 25 MG/ML AMP IV PRN (01:53)
[2021-09-09] MEDS ORDERED: cloNIDine HCL 0.1 MG TAB PO ONE (01:53)
[2021-09-09] MEDS ORDERED: PROMETHAZINE INJ 25 MG/ML AMP IM PRN (02:32)
[2021-09-09] MEDS ORDERED: TRAMADOL HCL 50 MG TAB PO ONE (05:12)
[2021-09-09] MEDS: METOPROLOL TAR 25 MG TAB PO SCH ×2 (05:58→17:59)
[2021-09-09 06:28] LABS: Absolute Lymphocytes (CBC) 0.3 K/uL (0.7-4.9); Hematocrit 23.7 % (36.0-45.0); Lymphocytes % 12.8 % (15.3-44.8); MPV 10.1 fL (7.6-11.3); RBC Red Blood Cell Count 2.66 M/uL (3.86-4.86)
[2021-09-09 06:59] LABS: Albumin 3.1 g/dL (3.4-5.0); Bilirubin Total 0.4 mg/dL (0.2-1.0); Protein, Total 6.1 g/dL (6.4-8.2)
[2021-09-09 07:00] LABS: Potassium 5.8 mmol/L (3.5-5.1)
[2021-09-09] MEDS: INSULIN -REGULAR HUMAN 50 UNIT/0.5 ML ML SQ SCH ×4 (07:30→21:00)
[2021-09-09 07:59] LABS: Blood Morphology Comment NOT SEEN (NOT SEEN); Platelet Estimate DECR; Platelets, Giant FEW; White Blood Cell Scan OK (OK)
[2021-09-09] MEDS ORDERED: SOD POLYSTYREN SUL 15 GM/60 ML UCUP PO ONE ×2 (08:28→20:52)
[2021-09-09 08:30] LABS: Potassium 5.9 mmol/L (3.5-5.1)
[2021-09-09] MEDS: CALCITROL 0.25 MCG CAP PO SCH (10:05)
[2021-09-09] MEDS: SEVELAMER CARBONATE 800 MG TABLET PO SCH ×3 (10:05→18:00)
[2021-09-09] MEDS: VITAMIN D 5,000 UNIT CAP PO SCH (10:05)
[2021-09-09] MEDS: DOCUSATE NA 100 MG CAP PO SCH ×2 (10:05→20:20)
[2021-09-09] MEDS: MULTIVITAMINS,THERAPEUT 1 TAB PO SCH (10:05)
[2021-09-09] MEDS: NEPRO SHAKE 237 ML CAN PO SCH ×3 (10:11→20:20)
[2021-09-09] MEDS: ACETAMINOPHEN 500 MG TAB PO PRN (13:25)
--- NOTE | 2021-09-09 17:52 | P.PN ---
Subjective Date of Service: 09/09/21 Chief Complaint: Abdominal pain with vomiting Patient is now tolerating clear liquid diet. She denies any abdominal pain. No issues overnight. Physical Examination - Vital Signs Temperature: 97.6 F Blood Pressure: 121/66 Pulse: 54 Respirations: 14 Pulse Ox (%): 95 Assessment And Plan - Plan Physical exam GEN: More interactive today HEENT: sclera anicteric CV: Regular rate and rhythm Pulm: Clear to auscultation bilaterally ABD: Soft, nontender, non-distended Integumentary: No rashes Neuro: No focal motor deficit Problem List ESRD on HD with hyperkalemia Diabetes mellitus type 2insulin-dependent with gastroparesis Acute on chronic diastolic congestive heart failure Hypertension Cirrhosis of liver, thrombocytopenia Anemia of chronic disease Routine hemodialysis per nephrology. Patient with persistent hyperkalemia. He is scheduled for another hemodialysis today Drop in hemoglobin noted. Monitor and transfuse as needed for hemoglobin less than 8 Continue Tamiflu for influenza Patient tolerating clear liquid diet for now. History of chronic gastroparesis Increase activity as tolerated.. DVT PPX: Heparin Code status: Full code
[2021-09-09] MEDS: HYDROMORPHONE HCL 0.5 MG/0.5 ML INJ IV PRN (18:08)
[2021-09-09] MEDS: ONDANSETRON 4 MG/2 ML VIAL IV PRN (18:09)
[2021-09-09] MEDS: DIPHENHYDRAMINE 50 MG/ML VIAL IV PRN (20:14)
--- NOTE | 2021-09-09 21:12 | P.PN ---
Date of Service: 09/09/21 Vital Signs Temp Pulse Resp BP Pulse Ox 97.6 F 51 14 124/63 95 09/09/21 17:52 09/09/21 17:59 09/09/21 18:08 09/09/21 17:59 09/09/21 18:08 Medications Acetaminophen (Acetaminophen 500 Mg Tab) 500 mg PO Q4H PRN PRN Reason: pain Last Admin: 09/09/21 13:25 Dose: 500 mg Documented by: Calcitriol (Calcitrol 0.25 Mcg Cap) 0.5 mcg PO DAILY [facility] Last Admin: 09/09/21 10:05 Dose: 0.5 mcg Documented by: Cholecalciferol (Vitamin D 5,000 Unit Cap) 5,000 unit PO DAILY [facility] Last Admin: 09/09/21 10:05 Dose: 5,000 unit Documented by: Diphenhydramine HCl (Diphenhydramine 50 Mg/Ml Vial) 25 mg IV Q6H PRN PRN Reason: ITCHING Last Admin: 09/09/21 20:14 Dose: 25 mg Documented by: Docusate Sodium (Docusate Na 100 Mg Cap) 100 mg PO BID [facility] Last Admin: 09/09/21 20:20 Dose: Not Given Documented by: Enteral Nutritional Formula (Nepro Shake 237 Ml Can) 240 ml PO TID [facility] Last Admin: 09/09/21 20:20 Dose: 240 ml Documented by: Heparin Sodium (Porcine) (Heparin 1,000 Unit/Ml Vial) 6,000 unit IV EVERY HD PRN PRN Reason: AFTER EACH Heparin Sodium (Porcine) (Heparin 1,000 Unit/Ml Vial) 3,000 unit IV EVERY HD [facility] Hydralazine HCl (Hydralazine Hcl 20 Mg/Ml Vial) 10 mg IV Q6HP PRN PRN Reason: Titrate to SBP (MUST DEFINE) Last Admin: 09/08/21 21:30 Dose: 10 mg Documented by: Hydromorphone HCl (Hydromorphone Hcl 0.5 Mg/0.5 Ml Inj) 0.5 mg IV Q6H PRN PRN Reason: Pain scale 5-7 (Moderate) Last Admin: 09/09/21 18:08 Dose: 0.5 mg Documented by: Albumin Human (Albumin 25%) 50 mls @ 100 mls/hr IV EVERY HD [facility] Insulin Human Regular (Insulin -Regular Human 50 Unit/0.5 Ml Ml) 0 unit SQ ACHS [facility]; Protocol Last Admin: 09/09/21 16:30 Dose: Not Given Documented by: Mannitol (Mannitol 25% 12.5 Gm/50 Ml Vial) 12.5 gm IV EVERY HD PRN PRN Reason: PRN FOR BP SUPPORT AT HD Metoprolol Tartrate (Metoprolol Tar 25 Mg Tab) 25 mg PO BID 6AM 6PM [facility] Last Admin: 09/09/21 17:59 Dose: 25 mg Documented by: Ondansetron HCl (Ondansetron 4 Mg/2 Ml Vial) 4 mg IV Q4H PRN PRN Reason: NAUSEA / VOMITING Last Admin: 09/09/21 18:09 Dose: 4 mg Documented by: Oseltamivir Phosphate (Oseltamivir Phosphate 30 Mg/5 Ml Suspension Ud) 30 mg PO AFTER EACH DIALYSIS [facility] Stop: 09/10/21 21:01 Promethazine HCl (Promethazine Inj 25 Mg/Ml Amp) 25 mg IM Q4H PRN PRN Reason: NAUSEA / VOMITING Last Admin: 09/09/21 02:44 Dose: 25 mg Documented by: Sevelamer Carbonate (Sevelamer Carbonate 800 Mg Tablet) 800 mg PO TIDWM [facility] Last Admin: 09/09/21 18:00 Dose: 800 mg Documented by: Sodium Chloride (Flush Normal Saline 10 Ml) 10 ml IV BID [facility] Last Admin: 09/09/21 20:14 Dose: 10 ml Documented by: Vitamin B Complex/Vit C/Folic Acid (Multivitamins,Therapeut 1 Tab) 1 tab PO DAILY [facility] Last Admin: 09/09/21 10:05 Dose: 1 tab Documented by: Assessment/ Plan: Nephrology No dyspnea No chest pain Fatigue and weakness No acute events overnight Vitals, medications, blood work and imaging reviewed in the chart. General: Oriented x3, Cooperative HEENT: Atraumatic Neck: Supple Respiratory: Diminished Cardiovascular: Regular rate/rhythm, Edema Gastrointestinal: Soft and benign, Non-distended Musculoskeletal: No clubbing, No contractures Integumentary: No rashes, No cyanosis Neurological: Normal speech Laboratory Data (last 24 hrs) 09/07/21 20:30: Sodium 137, Potassium 5.6 H*, BUN 50 H, Creatinine 8.41 H*, Glucose 132 H, Total Bilirubin 0.5, AST 18, ALT 15, Alkaline Phosphatase 65 09/07/21 20:30: WBC 3.60 L, Hgb 9.1 L, Hct 27.6 L, Plt Count 85 L* Conclusions/Impression: ESRD -HD MWF -Seen and examined on HD Hyperkalemia -Renal diet -HD TIW HTN with CKD/ CHF -Continue Metoprolol BID Diastolic CHF, chronic -HD with UF -Low sodium diet DM II with CKD, Gastroparesis, Polyneuropathy -RISS Moderate malnutrition -Continue Nepro Anemia in CKD -Retacrit TIW CKD MBD -Continue Vitamin D -Continue Renvela
[2021-09-10] MEDS: HYDROMORPHONE HCL 0.5 MG/0.5 ML INJ IV PRN ×3 (02:12→18:03)
[2021-09-10] MEDS: ONDANSETRON 4 MG/2 ML VIAL IV PRN (02:12)
[2021-09-10 04:25] LABS: Absolute Lymphocytes (CBC) 0.7 K/uL (0.7-4.9); Hematocrit 26.6 % (36.0-45.0); Lymphocytes % 36.3 % (15.3-44.8); MPV 11.8 fL (7.6-11.3); RBC Red Blood Cell Count 2.89 M/uL (3.86-4.86)
[2021-09-10 04:42] LABS: Bilirubin Total 0.3 mg/dL (0.2-1.0); Potassium 4.4 mmol/L (3.5-5.1)
[2021-09-10 04:43] LABS: Albumin 2.9 g/dL (3.4-5.0); Phosphorus 4.1 mg/dL (2.5-4.9)
[2021-09-10] MEDS: METOPROLOL TAR 25 MG TAB PO SCH ×2 (06:00→16:17)
[2021-09-10] MEDS: DIPHENHYDRAMINE 50 MG/ML VIAL IV PRN ×2 (06:26→12:36)
[2021-09-10] MEDS: INSULIN -REGULAR HUMAN 50 UNIT/0.5 ML ML SQ SCH ×3 (07:30→16:02)
[2021-09-10] MEDS: DOCUSATE NA 100 MG CAP PO SCH (08:54)
[2021-09-10] MEDS: CALCITROL 0.25 MCG CAP PO SCH (08:54)
[2021-09-10] MEDS: MULTIVITAMINS,THERAPEUT 1 TAB PO SCH (08:54)
[2021-09-10] MEDS: SEVELAMER CARBONATE 800 MG TABLET PO SCH ×3 (08:54→16:16)
[2021-09-10] MEDS: VITAMIN D 5,000 UNIT CAP PO SCH (08:55)
[2021-09-10] MEDS: NEPRO SHAKE 237 ML CAN PO SCH ×2 (08:55→16:18)
[2021-09-10 10:24] VITALS: O2SAT 88
--- NOTE | 2021-09-10 13:08 | P.PN ---
Subjective Date of Service: 09/10/21 Chief Complaint: Abdominal pain with vomiting Patient states she is feeling better and eating well. She also states that she has been ambulatory. No issues overnight. Physical Examination - Vital Signs Temperature: 96.9 F Blood Pressure: 142/73 Pulse: 56 Respirations: 16 Pulse Ox (%): 100 Assessment And Plan - Plan Physical exam GEN: Awake and alert. HEENT: sclera anicteric CV: Regular rate and rhythm Pulm: Clear to auscultation bilaterally ABD: Soft, nontender, non-distended Integumentary: No rashes Neuro: No focal motor deficit Problem List ESRD on HD with hyperkalemia Diabetes mellitus type 2insulin-dependent with gastroparesis Acute on chronic diastolic congestive heart failure Hypertension Cirrhosis of liver, thrombocytopenia Anemia of chronic disease Plan: Routine hemodialysis per nephrology. Hyperkalemia resolved with hemodialysis. Drop in hemoglobin noted. Hemoglobin is stable. Monitor and transfuse as needed for hemoglobin less than 8 Continue Tamiflu for influenza Advance diet as tolerated. History of chronic gastroparesis, symptoms worsened by uremia from missed hemodialysis. Increase activity as tolerated. DVT PPX: Heparin Code status: Full code
--- NOTE | 2021-09-10 15:14 | P.DS ---
Admission Date: 09/08/21 Discharge Date: 09/10/21 Disposition: ROUTINE DISCHARGE Discharge Condition: FAIR Reason for Admission: Abdominal pain with vomiting - Problems (1) Gastroparesis Current Visit: No Status: Acute (2) Intractable nausea and vomiting Current Visit: No Status: Acute (3) End stage renal disease on dialysis Current Visit: No Status: Chronic (4) Seizure disorder Onset Date: 06/08/16 Current Visit: No Status: Chronic Brief History of Present Illness: 40-year-old female with history of ESRD on HD, diabetes mellitus type 2insulin-dependent, gastroparesis, chronic diastolic congestive heart failure, hypertension, seizure disorder presented to the emergency department for abdominal pain, vomiting. Patient reported this episode very similar to previous with gastroparesis. Patient was evaluated in the emergency department her labs were significant for hyperkalemia with a potassium 5.6 with peaked T waves she has thrombocytopenia chronically her platelets are 85 hemoglobin 9.1. Patient admitted for further management. Hospital Course: Problem List ESRD on HD with hyperkalemia Diabetes mellitus type 2insulin-dependent with gastroparesis Acute on chronic diastolic congestive heart failure Hypertension Cirrhosis of liver, thrombocytopenia Anemia of chronic disease Patient admitted to the medical floor and started on supportive measures including antiemetics. Her symptoms likely related to diabetes gastroparesis complicated by uremia and flu symptoms Patient underwent multiple hemodialysis for hyperkalemia. Hemoglobin dropped but remained stable.. She was treated with Tamiflu for influenza Patient initially on clear liquid diet, which was later advanced to soft diet. She tolerated a soft diet. She was also ambulatory. Hyperkalemia has been corrected. Patient is deemed stable for discharge. Vital Signs/Physical Exam: Temp Pulse Resp BP Pulse Ox 96.9 F 56 16 142/73 H 100 09/10/21 13:08 09/10/21 13:08 09/10/21 13:08 09/10/21 13:08 09/10/21 13:08 General: Alert, In no apparent distress, Oriented x3 HEENT: Mucous membr. moist/pink Neck: JVD not distended Respiratory: Clear to auscultation bilaterally, Normal air movement Cardiovascular: No edema, Regular rate/rhythm, Normal S1 S2 Gastrointestinal: Soft and benign, Non-distended Musculoskeletal: No swelling Integumentary: No rashes, No cyanosis Neurological: Normal strength at 5/5 x4 extr Laboratory Data at Discharge: WBC 1.90 K/uL (4.3-10.9) L* 09/10/21 04:01 Hgb 8.4 g/dL (12.0-15.0) L 09/10/21 04:01 Hct 26.6 % (36.0-45.0) L 09/10/21 04:01 Plt Count 62 K/uL (152-406) L* D 09/10/21 04:01 Sodium 138 mmol/L (136-145) 09/10/21 04:01 Potassium 4.4 mmol/L (3.5-5.1) 09/10/21 04:01 BUN 16 mg/dL (7-18) 09/10/21 04:01 Creatinine 3.79 mg/dL (0.55-1.3) H D 09/10/21 04:01 Glucose 69 mg/dL (74-106) L 09/10/21 04:01 Phosphorus 4.1 mg/dL (2.5-4.9) 09/10/21 04:01 Magnesium 2.0 mg/dL (1.8-2.4) 09/10/21 04:01 Total Bilirubin 0.3 mg/dL (0.2-1.0) 09/10/21 04:01 AST 88 U/L (15-37) H 09/10/21 04:01 ALT 58 U/L (12-78) 09/10/21 04:01 Alkaline Phosphatase 62 U/L (45-117) 09/10/21 04:01 Home Medications: Sertraline [Zoloft*] 50 mg PO DAILY 03/05/20 Pantoprazole Sodium [Protonix] 1 tab PO DAILY 30 Days #30 tablet. 03/06/20 Metoprolol Succinate 25 mg PO DAILY 07/22/20 Pravastatin Sodium 1 tab PO DAILY 07/22/20 Doxazosin [Cardura*] 4 mg PO BEDTIME 09/30/20 Furosemide [Lasix*] 40 mg PO BID 09/30/20 Ondansetron [Zofran (Odt)*] 4 mg PO Q8H PRN 14 Days #30 tab 10/01/20 Nepro Shake [Nepro*] 237 ml PO TID #60 can 11/07/20 Cholecalciferol (Vitamin D3) [Vitamin D 5,000 IU Cap*] 5,000 unit PO DAILY #30 cap 01/16/21 Heparin [Heparin 1,000 units/mL *] 6,000 unit IV EVERY HD PRN vial 07/31/21 Metoclopramide [Reglan*] 5 ml PO TID PRN 07/31/21 Buspirone HCl [Buspar] 1 tab PO BID 08/22/21 Divalproex Sodium [Depakote] 1 tab PO BID 08/22/21 Quetiapine Fumarate [Seroquel] 25 mg PO BEDTIME 08/22/21 Ascorbate Calcium [Vitamin C] 500 mg PO BID 09/08/21 clonazePAM [Klonopin] 0.5 mg PO DAILY 09/08/21 Calcitrol [Rocaltrol*] 0.5 mcg PO DAILY #30 cap 09/10/21 Diphenhydramine [Benadryl*] 25 mg IV Q6H PRN #30 vial 09/10/21 Docusate [Colace Cap*] 100 mg PO BID #60 cap 09/10/21 Epoetin [Retacrit] 10,000 unit SQ M,W,F vial 09/10/21 Mannitol 25% [Mannitol*] 12.5 gm IV EVERY HD PRN vial 09/10/21 Sevelamer Carbonate [Renvela*] 800 mg PO TIDWM #90 tablet 09/10/21 New Medications: Diphenhydramine [Benadryl*] 25 mg IV Q6H PRN #30 vial PRN Reason: Itching Docusate [Colace Cap*] 100 mg PO BID #60 cap Sevelamer Carbonate [Renvela*] 800 mg PO TIDWM #90 tablet Calcitrol [Rocaltrol*] 0.5 mcg PO DAILY #30 cap Diet: Renal Activity: Ad monique Followup: NONE,NONE [Primary Care Provider] - Time spent managing pt's care (in minutes): 33
[2021-09-10] MEDS: ACETAMINOPHEN 500 MG TAB PO PRN (15:25)
[2021-09-10 16:11] VITALS: BP 170/82; TEMP 97.6
[2021-09-10] MEDS ORDERED: EPOETIN ALFA 10,000 UNIT/ML VIAL SQ SCH (17:00)
--- NOTE | 2021-09-10 19:26 | P.PN ---
Date of Service: 09/10/21 Vital Signs Temp Pulse Resp BP Pulse Ox 97.6 F 59 16 170/82 H 100 09/10/21 16:00 09/10/21 16:17 09/10/21 16:00 09/10/21 16:17 09/10/21 16:00 Assessment/ Plan: Nephrology No dyspnea No chest pain Fatigue and weakness No acute events overnight Vitals, medications, blood work and imaging reviewed in the chart. General: Oriented x3, Cooperative HEENT: Atraumatic Neck: Supple Respiratory: Diminished Cardiovascular: Regular rate/rhythm, Edema Gastrointestinal: Soft and benign, Non-distended Musculoskeletal: No clubbing, No contractures Integumentary: No rashes, No cyanosis Neurological: Normal speech Laboratory Data (last 24 hrs) 09/07/21 20:30: Sodium 137, Potassium 5.6 H*, BUN 50 H, Creatinine 8.41 H*, Glucose 132 H, Total Bilirubin 0.5, AST 18, ALT 15, Alkaline Phosphatase 65 09/07/21 20:30: WBC 3.60 L, Hgb 9.1 L, Hct 27.6 L, Plt Count 85 L* Conclusions/Impression: ESRD -HD MWF Hyperkalemia -Renal diet -HD TIW HTN with CKD/ CHF -Continue Metoprolol BID Diastolic CHF, chronic -HD with UF -Low sodium diet DM II with CKD, Gastroparesis, Polyneuropathy -RISS Moderate malnutrition -Continue Nepro Anemia in CKD -Retacrit TIW CKD MBD -Continue Vitamin D -Continue Renvela
== END 2021-09-10 18:50 | disposition home or self-care (01) | DRG 73 ==
LOC: ER 19:15 → ERHOLD 23:10 → 2ND 09-08 15:58 → OBSVTOIN 09-08 21:53
PROVIDERS: ADMIT Hospitalist; ATTEND Internal Medicine
PROC: 5A1D70Z Performance of Urinary Filtration, Intermittent, Less than 6 Hours Per Day (ICD-10-PCS; principal; 2021-09-08)
DX: E11.43 Type 2 diabetes mellitus with diabetic autonomic (poly)neuropathy (principal); N18.6 End stage renal disease; I50.33 Acute on chronic diastolic (congestive) heart failure; I13.2 Hypertensive heart and chronic kidney disease with heart failure and with stage 5 chronic kidney disease, or end stage renal disease; E44.0 Moderate protein-calorie malnutrition; K31.84 Gastroparesis; E11.22 Type 2 diabetes mellitus with diabetic chronic kidney disease; D63.1 Anemia in chronic kidney disease; E87.5 Hyperkalemia; K74.60 Unspecified cirrhosis of liver; D63.8 Anemia in other chronic diseases classified elsewhere; M89.9 Disorder of bone, unspecified; D69.6 Thrombocytopenia, unspecified; F17.210 Nicotine dependence, cigarettes, uncomplicated; Z88.5 Allergy status to narcotic agent; Z88.8 Allergy status to other drugs, medicaments and biological substances; Z98.51 Tubal ligation status; Z68.29 Body mass index [BMI] 29.0-29.9, adult; Z88.0 Allergy status to penicillin; Z95.828 Presence of other vascular implants and grafts; Z79.4 Long term (current) use of insulin; Z20.822 Contact with and (suspected) exposure to COVID-19
CPT/HCPCS: 0240U; 36415; 80048; 80053; 80076; 82947; 83735; 84100; 85025; 90935; 93005; 96365; 96375; 99284; G0378; J0360; J0610; J1170; J1200; J1644; J2405; J2550; Q5105; Q5106

== ENCOUNTER 2021-09-12 20:22 | Emergency (ER) | payer OTHER ==
--- OUTSIDE RECORDS SUMMARY | 2021-09-12 20:48 | XMS REPORT | Continuity of Care Document ---
:1980 Author Organization [facility] t Address [address] [place] [address] Care Team Providers Name Role Phone Vivien Morin DO Primary Care Physician Guillaume_Dinah Attending Clinician Unavailable Kasey Ann RN Attending Clinician Anthony Attending Clinician Unavailable Pat BURNS, Cathie Attending Clinician Vipin Dhaliwal MD Attending Clinician Ramírez Nagel MD Attending Clinician Kalen Mckenzie Attending Clinician Endy BURNS Attending Clinician Laquita Dodd Attending Clinician Donavon Diaz MD Attending Clinician Joes Carlos BURNS V. Attending Clinician Pati BURNS [...] Policy Number Effective Date Expiration Date S [facility] [id number] (MEDICARE 00:00:00 REPLACEMENT HMO) Advance Directives Directive Decision Effective Termination Comments Source Date Date Healthcare Agents on N/A [facility] FileNameRelations[facility] Agent Medical RelationshipCommunicationT[facility] Hospital FoundSibling3 - First Alternate Agent (Medical Power of Senior Analytic Consultant) Problems Condition Condition Condition Status Onset Resolution Last Treating Co mments Source Name Details Category Date Date Treatment Clinician Date AVF AVF Disease Active Univers (arteriove (arteriove 9 it y of nous nous 00:00: [place] fistula) fistula) 00 Medica l Branch End [...] Vin GASTROPARE 00 HELENA/IBS-D /ANEMIA Active 01/03/2021 [facility] NEW Diagnosis Active 2020-12-24 Mem oria PATIENT GI 4-26 10:39:00 l CONSULT NEW 00:00: Vin REFRACTORY PATIENT GI 00 GASTRO CONSULT REFRACTORY GASTRO Active 10/14/2020 [facility] Malfunctio Malfunctio Disease Active Overview : Univers n of n of 6-03 Formattin ity of arterioven arterioven 00:00: g of this [place] ous ous 00 note Medical dialysis dialysis might be Bran ch fistula, fistula, different initial initial from the encounter encounter original. Added automatic ally from request for surgery [id number] Candidiasi Candidiasi Disease Active U nivers s of vulva s of vulva 2-18 it y of [place] vagina [place] Screening Screening Disease Active Uni vers for breast for breast 2-18 it y of cancer cancer 00:00: [place] 00 Medical Branch NEW Diagnosis Active 2018-07-26 Mem oria EVALUATION - 09:39:00 l NEW 00:00: [place] EVALUATION 00 Active 07/12/2018 [facility] Pyogenic Pyogenic Disease Active 2017-06 Overview: Un lori granuloma granuloma 0-17 Formattin i ty of of of 00:00: g of this [place] conjunctiv conjunctiv 00 note Me dical a, right a, right might be Bran ch different from the original. Added automatic ally from request for surgery [id number] Right eye Right eye Disease Active Overview: Univers affected affected 02-22 Formattin ity of by by 00:00: g of this [place] proliferat proliferat 00 note Me dical montse montse might be Branch diabetic diabetic different retinopath retinopath from the y with y with original. traction traction Added retinal retinal automatic detachment detachment ally from not not request involving involving for macula, macula, surgery associated associated [id number] with type with type 1 diabetes 1 diabetes mellitus mellitus Pain Pain Disease Active Univers management management 01-18 it y of 00:00: [place] 00 Medical Branch Blind Blind Disease Active Overview: Univer s painful painful 12-16 Formattin ity o f eye eye 00:00: g of this [place] 00 note Medical might be Branch different from the original. Eviscerat ion OS on 8 - Dr. 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 Added automatic ally from request for surgery [id number] ESRD (end ESRD (end Disease Active Overview: Univers stage stage 6-12 Formattin ity of renal renal 00:00: g of this [place] disease) disease) 00 note Medica l on on might be Branch dialysis dialysis different from the original. Added automatic ally from request for surgery [id number] Diabetes Diabetes Disease Active Metho di mellitus [...] Added automatic ally from request for surgery [id number] Neovascula Neovascula Disease Active 2018-0 U nivers r r 1-18 ity of glaucoma, glaucoma, [place] left [place] left eye 00 Medica l Branch Increased Increased Disease Active Uni vers intraocula intraocula 1-18 it y of r pressure r pressure [place]:00[place] Fall Fall Disease Active 2016-06 Univers 0-13 ity of 00:00: [place] 00 Medical Branch Pneumonia Pneumonia Disease Active 2016-06 Uni vers 0-11 ity of 00:00: [place] Medical Branch Diabetes Diabetes Disease Active 2016-06 Overview: Un lori mellitus mellitus 0-05 Formattin ity of 00:00: g of this [place] 00 note Medical might be Branch different from the original. Added automatic ally from request for surgery [id number] Pseudotumo Pseudotumo Disease Active U nivers r cerebri r cerebri 9-25 ity of 00:00: [place] 00 [facility] Branch Liver Liver Disease Active [facility] [...] ve 7-16 [facility]: [facility] Peripheral Peripheral Disease Active U viviana neuropathy neuropathy 7-16 it y of 00:00: [place] [address] Medical Branch ACUTE RESP Diagnosis Active 2016-09-09 Memoria FAILURE 2- 09:11:00 l ACUTE 00:00: [place] RESP 00 FAILURE Active 07/23/2016 [facility] CONGESTION Diagnosis Active 2016-07-24 Memoria AMD 2- 01:49:00 l DIARRHEA 00:00: [place] CONGESTION 00 AMD DIARRHEA Active 07/23/2016 [facility] Congestive Congestive Disease Active 2015-06 U T heart heart - Health failure failure 00:00: (CHF) (CHF) 00 SOB/SWELLI Diagnosis Active 2015-062016-06-10 [facility] NG 2- 15:48:00 l 00:00: Vin SOB/SWELLI 00 NG Active 6 [facility] CHF/RENAL Diagnosis Active 2015-062016-06-24 Memoria DISEASE 2- 15:35:00 l 00:00: [place] CHF/RENAL 00 DISEASE Active 06/10/2016 [facility] Obesity Obesity Disease Active 2015-06 Univers (BMI (BMI 0-12 ity of 30-39.9) 30-39.9) 00:00: [place] [address] Medical Branch Hyperosmol Hyperosmol Disease Active 2015-06 U viviana ar ar 0-12 ity of non-ketoti non-ketoti [place] state in c state in 00 Me dical patient patient Branch with 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 Hyperglyce Hyperglyce Disease Active 2015-06 U viviana maryam maryam 0-11 ity of 00:00: [place] [address] Medical Branch Diabetic Diabetic Disease Active Unive rs ulcer of ulcer of 5-07 ity of both feet both feet 00:00: Amisha lombardo associated associated 00 Me dical with type with type Bran ch 2 diabetes 2 diabetes mellitus mellitus SANJUANA (acute SANJUANA (acute Disease Active U viviana kidney kidney 5-07 ity of injury) injury) 00:00: [place] [address] Medical Branch Depression Depression Disease Active U [...] 00:00: [place] cancer in cancer in 00 [facility] female female Branch Family Family Disease [...] Memoria PAIN, 1-06 05:44:00 l SEIZURES 00:00: [place] ABDOMINAL 00 PAIN, SEIZURES Active 06/26/2013 [facility] ABD PAIN Diagnosis Active 2012-062013-04-19 M emoria 0- 21:51:00 l ABD PAIN 19:00: Jake n 00 Active 04/14/2013 [place] GASTROPERI Diagnosis Active 2012-09-13 Memoria SIS 2-12 15:17:00 l 00:00: [place] GASTROPERI 00 SIS Active 08/02/2012 [facility] ABDOMINAL Diagnosis Active 2012-03-14 Mem[facility] PAIN 03-14 16:56:00 l 14:00: [place] ABDOMINAL 00 PAIN Active 03/14/2012 [facility] NAUSEA, Diagnosis Active 2012-03-14 Me moria VOMITING 03-14 13:25:00 l NAUSEA, 08:00: Vin VOMITING 00 Active 03/14/2012 [facility] N/V Diagnosis Active 2011-12-08 Mem oria INABILITY 11-27 11:14:00 l TO N/V 00:00: Vin TOLERATE INABILITY 00 PO TO TOLERATE PO Active 2 [facility] VOMITTING Diagnosis Active 2011-11-28 Memoria 11-27 16:28:00 l 00:00: [place] VOMITTING 00 Active 11/28/2011 [facility] VOMITTING, Diagnosis [facility] 2011[facility]09-[facility] HIGH BLOOD 09-17 09:45:00 l SUGAR 00:00: [place] VOMITTING, 00 HIGH BLOOD SUGAR Active 09/18/2011 [facility] Methicilli Problem Active 2021-01-31 M emoria n 08-31 22:29:25 l resistant 00:00: [place] Staphyloco Methicilli 00 ccus n aureus resistant (organism) Staphyloco ccus aureus (organism) Active 09/01/2011 Problem 01/31/2021 09/01/11 - Elbow woundProbl em added by Discern Expert. [facility] MRSA Problem Active 2012-03-16 Memor ia - 09:11:30 l MRSA 00:00: Vin 00 Active 09/01/2011 Problem 03/16/2012 - Elbow [id number] emily added by Discern Expert. [facility] VOMITING, Diagnosis Active 2011-09-01 Memoria BLOOD 08-30 03:19:00 l SUGAR 00:00: [place] READINGS VOMITING, 00 HIGH BLOOD SUGAR READINGS HIGH Active 08/31/2011 [facility] ELBOW Diagnosis Active 2011-09-10 Mem oria ABSCESS/HY 08-30 16:26:00 l PERGLYCEMI ELBOW 00:00: Nidia nn A ABSCESS/HY 00 PERGLYCEMI A Active 08/31/2011 [facility] Hypokalemi Problem Active 2012-03-16 M emoria a 3-04 09:11:30 l 00:00: Vin Hypokalemi 00 a Active 08/23/2011 Problem 03/16/2012 [facility] DKA Diagnosis Active 2011-08-24 Mem oria 11:27:00 l DKA 00:00: [place] 00 Active 08/19/2011 [facility] VOMITING Diagnosis Active 2011-08-19 M emoria 16:21:00 l VOMITING 00:00: Jake n 00 Active 08/19/2011 [facility] Final: Problem 2016-08-02 Memor ia Acute 02:46:22 l respirator Final: Herm naeem y failure, Acute unspecifie respirator d whether y failure, with unspecifie hypoxia or d whether hypercapni with a hypoxia or hypercapni a 08/02/2016 [facility] Hypoglycem Problem Inactiv 2012-03-16 Memoria ia e 09:11:30 l Vin Hypoglycem ia Inactive Problem 03/16/2012 [facility] Hypoglycem Problem Inactiv 2013-04-22 Memoria ia e 04:46:33 l (disorder) Jake n Hypoglycem ia (disorder) Inactive Problem 04/22/2013 [facility] Gastropare Problem Resolve 2021-01-31 Memoria sis d 22:29:25 l (disorder) Jake gonzalez Gastropare sis (disorder) Resolved Problem 01/31/2021 [facility] Hypertensi Problem Resolve 2021-01-31 Memoria ve d 22:29:25 l disorder, Vin systemic Hypertensi arterial ve (disorder) disorder, systemic arterial (disorder) Resolved Problem 01/31/2021 [facility] Psychiatri Problem Resolve 2021-01-31 Memoria c d 22:29:25 l behavioral Jake n disability Psychiatri (finding) c behavioral disability (finding) Resolved Problem 01/31/2021 [facility] Seizure Problem Resolve 2021-01-31 Mem oria (finding) d 22:29:25 l Seizure Vin (finding) Resolved Problem 01/31/2021 [facility] Hypertensi Problem Active 2012-03-16 M emoria on 09:11:30 l [place] Hypertensi on Active Problem [facility] Hypomagnes Problem Active 2013-04-22 M emoria emia 04:46:33 l [place] Hypomagnes emia Active Problem 04/22/2013 [facility] Nausea and Problem Active 2012-03-16 M emoria vomiting 09:11:30 l Nausea Vin and vomiting Active Problem 03/16/2012 [facility] ENCNTR FOR Diagnosis Active 2020-12-24 Memoria GENERAL 10:39:00 l ADULT ENCNTR [place] MEDICAL FOR EXAM W/ GENERAL ADULT MEDICAL EXAM W/ Active [facility] DMI Diagnosis Active 2011-08-24 Mem oria KETOACD 11:27:00 l UNCONTROLD DMI Jake n KETOACD UNCONTROLD Active [facility] OTHER Diagnosis Active 2011-09-10 Mem oria GENERAL 16:26:00 l SYMPTOMS OTHER [place] GENERAL SYMPTOMS Active [facility] HEART Diagnosis Active 2016-06-24 Mem oria FAILURE, 15:35:00 l UNSPECIFIE HEART Nidia nn D FAILURE, UNSPECIFIE D Active [facility] ACUTE Diagnosis Active 2016-09-09 Mem oria RESPIRATOR 09:11:00 l Y FAILURE, ACUTE Nidia nn UNSP W RESPIRATOR HYPOXI Y FAILURE, UNSP W HYPOXI Active [facility] Nausea and Problem Resolve 2021-01-31 2021-01-31 Memoria vomiting d 6-10 22:29:25 22:29:25 l (disorder) Nausea 00:00: Herm naeem and 00 vomiting (disorder) Resolved 11/29/2011 Problem 01/31/2021 [facility] Hypokalemi Problem Resolve 2021-01-31 2021-01-31 Memoria a d 3-04 22:29:25 22:29:25 l (disorder) 00:00: Jake n Hypokalemi 00 a (disorder) Resolved 08/23/2011 Problem 01/31/2021 [facility] Disorder Problem Resolve 2021-01-31 2021-01-31 Memoria of d 3-04 22:29:25 22:29:25 l magnesium Disorder 00:00: Her braden metabolism of 00 (disorder) magnesium metabolism (disorder) Resolved 08/23/2011 Problem 01/31/2021 [facility] Hyperglyce Problem Resolve 2021-01-31 2021-01-31 Memoria maryam d 3 22:29:25 22:29:25 l (disorder) 00:00: Jake n Hyperglyce 00 maryam (disorder) Resolved 08/20/2011 Problem 01/31/2021 [facility] Ketoacidos Problem Resolve 2021-01-31 2021-01-31 Memoria is in d 22:29:25 22:29:25 l diabetes 00:00: Vin mellitus Ketoacidos 00 (disorder) is in diabetes mellitus (disorder) Resolved 08/19/2011 Problem 01/31/2021 [facility] DKA Problem Resolve 2013-04-22 2013-04-22 Memoria (diabetic d 04:46:33 04:46:33 l ketoacidos DKA 00:00: Jake gonzalez es) (diabetic 00 ketoacidos es) Resolved 08/19/2011 Problem 04/22/2013 [facility] History of Past Illness Condition Condition Condition Status [place] Resolution Last Treating Co mments Source Name Details Category Date Date Treatment Clinician Date Discharge Problem 2014-06-28 2014-06-28 Memoria Diagnosis: 1-06 16:34:37 16:34:37 l Gastropare 06:00: Jake n sis Discharge 00 Diagnosis: Gastropare sis 06/26/2014 06/28/2014 [facility] Hyperglyce Problem Inactiv 2012-03-16 2012-03-16 Memoria maryam e 3- 09:11:30 09:11:30 l 00:00: [place] Hyperglyce 00 maryam Inactive 08/20/2011 Problem 03/16/2012 [facility] Allergies, Adverse Reactions, Alerts Allergy Allergy Status [...] ers SIN INGREDI 01-03 ity of 00:00: [address] Branch Nitrofur Allergy Active Anaphylaxis Other [place] [...] C INGREDI 6-25 ity of TROMETHA 00:00: [place] MINE 00 Medical Branch Ketorola Allergy Active [...] umbnessnu mbnessnum bnessnumb nessnumbn essnumbne ssnumbnes s Guaifene Propensi Active Other (See Other Me [...] l s to drug Penicill Propensi Active Anaphylaxis 2010-06 U nivers [...] 00 HivesAirw ay closure Penicill Propensi Active Shortness Of 2010-06 Airway Methodi ins ty to Breath 2-[address] adverse 00:00: her Hosp[facility] reaction 00 reaction( l s to s): drug HivesAirw ay closure penicill penicill Active Memori a ins ins l [place] codeine codeine Active Memoria l Vin morphine morphine Active Memori a l [place] lisinopr lisinopr Active Memori a il il l Vin Adhesive Adhesive Active Memori a Tape Tape l Vin Ambien Ambien Active Memoria l [place] Prolex Prolex Active Memoria DM DM l [place] penicill Drug Active [facility] lisinopr Drug Active [facility] Ambien Drug Active [facility] Prolixin Drug Active [facility] penicill Drug Active [facility] lisinopr Drug Active [facility] Ambien Drug Active [facility] Prolixin Drug Active [facility] Tape Other Active [facility] penicill Drug Active [facility] lisinopr Drug Active [facility] Ambien Drug Active [facility] Prolixin Drug Active [facility] codeine Drug Active [facility] penicill Drug Active [facility] lisinopr Drug Active [facility] Ambien Drug Active [facility] Prolixin Drug Active [facility] codeine Drug Active [facility] penicill Drug Active [facility] lisinopr Drug Active [facility]ien Drug Active [facility] Prolixin Drug Active [facility] penicill Drug Active [facility] lisinopr Drug Active [facility]ien Drug Active [facility] Prolixin Drug Active [facility] penicill Drug Active [facility] lisinopr Drug Active [facility] Ambien Drug Active [facility] Prolixin Drug Active [facility] Social History Social Habit Start Date Stop Date Quantity Comments Source History of tobacco Cigarette Smoker [facility] use [facility] Exposure to Yes [facility] SARS-CoV-2 (event) Hospit al Alcohol intake 2021-06-18 2021-06-18 Ex-drinker [facility] 00:00:00 00:00:00 (finding) Hospital Cigarettes smoked 2021-05-14 2021-05-14 [facility] current (pack per 00:00:00 00:00:00 Hospita l day) - Reported Cigarette 2021-05-14 2021-05-14 [facility] pack-years 00:00:00 00:00:00 Hospital Tobacco use and 2021-05-14 2021-05-14 Smokeless tobacco Me [facility]odist exposure 00:00:00 00:00:00 non-user Hospital Social History 2020-12-24 2020-12-24 [facility] fatou 15:49:37 15:49:37 Tobacco Comment 2017-11-12 2017-11-12 5 cigarettes per Met [facility]odist 00:00:00 00:00:00 day Hospital Sex Assigned At [birth year] [facility] 00:00:00 00:00:00 Hospital Smoking Status Start Date Stop Date Source Smokes tobacco daily 2021-05-14 00:00:00 [facility] Former smoker 2020-06-27 00:00:00 2020-06-27 00:00:00 [facility] Medications Ordered Filled Start Stop Current Ordering Indication Dosage Frequency Signature Comments Components Source Medication Medication Date Date Medication? Clinician (SIG) Name Name glipiZIDE Yes 5mg Take 5 mg Met hodi (GLUCOTROL) 1-[address] 5 MG tablet 13:02: daily. Hosp jo-ann 39 l calcium Yes 667mg Q.[id number] Take 667 Methodi acetate 1-[id number] (PHOSLO) 13:02: 3D mouth [...] 39 nightly. l calcium 2021-0 Yes 1334mg Q.[id number] Take 1,334 Methodi acetate,domingo 1-18 [id number] mg by s t sphat bind, 13:02: 3D mouth 3 Hos whit (Phoslyra) 39 (three) l 667 mg (169 times a mg day. calcium)/5 mL solution cyproheptad Yes 4mg Q.[id number] Take 4 mg Methodi ine -[id number] mouth [address] (PERIACTIN) 13:02: 3D (three) Hos whit 4 mg tablet 39 times a l day as needed for allergies. buPROPion Yes 300mg QD Take 300 Met hodi XL 1-[address] (WELLBUTRIN 13:02: mouth Hospi ta XL) 300 MG 39 daily. l 24 hr tablet ascorbic Yes 500mg Q.[id number] Take 500 Methodi acid, -[id number] vitamin C, 13:02: 3D [...] mg at night vancomycin 2020-06- No 750mg Q.[id number] Infuse 750 Methodi 750 mg in 07-08 [id number] mg into a [address] sodium 00:00: 05:59 3W venous Hospita chloride 00 :00 catheter 3 l 0.9% 250 mL (three) IVPB times a week for 19 days. Administer 3 times weekly in dialysis HYDROcodone 2020-06- No [id number] 1{tbl} Q6H Take 1 Methodi -acetaminop 06-24 [...] 30 per tablet days. HYDROcodone 2020-06 No [id number] 2{tbl} Q8H Take 2 Methodi -acetaminop 07-26 12-13 tablets by s t hen (NORCO) 00:00: 05:59 mouth Hosp jo-ann 5-325 mg 00 :00 every 8 l per tablet (eight) hours as needed for severe pain for up to 7 days .acute pain. Max Daily Amount: 6 tablets predniSONE 2020-06- No [id number] Take M ethodi (DELTASONE) 07-18-05 Prednisone s [...] 0-03 by mouth. ity of tablet 11:08: [place] [address] Medical Branch aspirin 81 2020-06 Yes 81mg Take 1 Unive rs mg chewable 0-03 tablet by ity of tablet 11:08: mouth [place] [address] daily. Medical Branch divalproex 2020-06 Yes 500mg Take 500 Un lori ER 0-01 mg by ity of (DEPAKOTE 23:08: mouth 2 [place] ER) 500 mg 36 (two) Medical 24 hr times Branch tablet daily. gabapentin 2020-06 Yes 100mg Take 100 Un lori 100 mg 0-01 mg by ity of capsule 23:08: mouth 2 [place] [address] (two) Medical times Branch daily. vitamin C 2020-06 Yes 2000mg Take 2,000 Univers with sia 0-01 mg by ity of hips 23:08: mouth 2 [place] (VITAMIN C) 36 (two) Medical 1,000 mg times Branch tablet daily. metoprolol 2020-06 Yes 50mg Take 50 mg U nivers tartrate 50 0-01 by mouth ity of mg tablet 23:08: daily. [address] Branch folic 2020-06 Yes 800mg Take 800 Univers acid/vit B 0-01 mg by ity of complex and 23:08: mouth [place] C 36 daily. Medical (DIALYVITE Branch 800 ORAL) linagliptin 2020-06 Yes Take by Un lori (TRADJENTA) 0-01 mouth. ity of 5 mg tablet 23:08: [address] Branch spironolact 2020-06 Yes 50mg Take 50 mg Univers one 50 mg 0-01 by mouth ity of tablet 23:08: daily. [address] Branch pravastatin 2020-06 Yes 40mg Take [...] by mouth ity of tablet 23:08: daily. [place] [address] Medical Branch calcium 2020-06 Yes 667mg Take 667 Unive rs acetate 667 0-01 mg by ity of mg capsule 23:08: mouth 3 [place] (three) Medical times Branch daily with meals. cetirizine 2020-06 Yes 1{tbl} Take 1 Uni vers HCl/pseudoe 0-01 tablet by ity of phedrine 23:08: mouth [place] (ZYRTEC-D 36 daily. Medical ORAL) Branch furosemide 2020-06 Yes 40mg Take 40 mg U nivers 40 mg 0-01 by mouth 2 ity of tablet 23:08: (two) [place] [address] times Medical daily. Branch divalproex 2020-06 Yes 500mg Take 500 Un lori ER 0-01 mg by ity of (DEPAKOTE 23:08: mouth 2 [place] ER) 500 mg (two) Medical 24 hr times Branch tablet daily. gabapentin 2020-06 Yes 100mg Take 100 Un lori 100 mg 0-01 mg by ity of capsule 23:08: mouth 2 [place] [address] (two) Medical times Branch daily. vitamin C 2020-06 Yes 2000mg Take 2,000 Univers with sia 0-01 mg by ity of hips 23:08: mouth 2 [place] (VITAMIN C) (two) Medical 1,000 mg times Branch tablet daily. metoprolol 2020-06 Yes 50mg Take 50 mg U nivers tartrate 50 0-01 by mouth ity of mg tablet 23:08: daily. [place] [address] Medical Branch folic 2020-06 Yes 800mg Take 800 Univers acid/vit B 0-01 mg by ity of complex and 23:08: mouth [place] C daily. Medical (DIALYVITE Branch 800 ORAL) linagliptin 2020-06 Yes Take by Un lori (TRADJENTA) 0-01 mouth. ity of 5 mg tablet 23:08: [place] [address] Medical Branch spironolact 2020-06 Yes 50mg Take 50 mg Univers one 50 mg 0-01 by mouth ity of tablet 23:08: daily. [place] [address] Medical Branch pravastatin 2020-06 Yes 40mg Take 40 mg Univers 40 mg 0-01 by mouth ity of tablet 23:08: daily. [place] [address] Medical Branch mv-mn/iron/ 2020-06 Yes 1{capsu Take 1 U nivers folic 0-01 le} capsule by ity of acid/herb 23:08: mouth [place] 190 36 daily. Medical (VITAMIN D3 Branch COMPLETE ORAL) SERTraline 2020-06 Yes 50mg Take 50 mg U nivers 50 mg 0-01 by mouth ity of tablet 23:08: daily. [address] Branch calcium 2020-06 Yes 667mg Take [...] janice - (Same as: l 01:36: Mylicon) [place] 00 epoetin Yes 2,000 unit Mendoza janice giovanny-epbx 8 = 1 mL, l 1999 19:37: IV, [place] units/mL 00 Q-M-W-F, preservativ to be e-free [...] tab, PO, l tablet 19:33: BID, 0 [place] 00 Refill(s) buPROPion Yes 75 mg = 1 Mem oria 75 mg oral 8-10 tab, PO, l tablet 19:33: Daily, # [place] 00 14 tab, 0 Refill(s) Norvasc No [...] l de 50 MG 09:29: 400mg/day. Her braedn Oral Tablet 00 (Same As: Ultram) heparin No Notes: Memoria 01-27 porcine l 02:00: heparin Magnesium No Notes: Memori a Oxide 01-23 (Same as: l 22:54: Mag-Ox Vin 00 400) Magnesium oxide [id number]=636j g elemental magnesium Dose=____m g magnesium oxide (___mg elemental magnesium) Coreg No Notes: Memoria 01-23 Give with l 02:00: food. Vin 00 (Same As: Coreg) Buspar No Notes: Memoria 01-22 (Same As: l 22:00: BuSpar) [place] 00 Fentanyl No Notes: Memoria 01-22 (Same as: l 21:06: Sublimaze) [place] 00 Preservat montse free. Norvasc No Notes: Memoria 8- (Same as: l 16:47: Norvasc) [place] 00 Wellbutrin No Notes: Memor ia 01-22 [...] 01-22 2 tab, l 02:00: Route: PO, [place] 00 Drug form: ERTAB, Bedtime, Start date: [...] Same as: l 200 mL 18:26: Cardene [place] (Titrate.) 00 Concentrat IV 40 mg ion: (0.2 mg /1 ml ) Cyproheptad No 4 mg, 1 Mem oria ine 01-21 tab, l 18:00: Route: PO, Vin Drug form: TAB, TID, Dosing Weight 72, kg, Start date: 01/21/21 13:00:00 CDT, Duration: 30 day, Stop date: 02/20/21 9:00:00 CDT Albuterol No Notes: SEE Me moria 01-21 RT l 17:49: DOCUMENTAT [place] ION (Same as: Proventil) albuterol No 180 [...] 0.9% 01-21 Same as: l 17:31: BD [place] Posiflush Sterile propofol 10 No Notes: If M emoria mg/mL 01-21 Diprivan - l (Titrate.) 17:31: change Nidia nn IV 1,000 mg 00 bottle & tubing every 12 hr Per state nursing law propofol can only be given by a nurse if patient is intubated or being intubated (unless the nurse is a GREY STOCK RECORDER). Same as: Diprivan midazolam No Route: IV, Me moria (ANES) 01-21 Drug form: l 17:18: SOLN, [place] 00 ONCE, Stop date: 01/21/21 12:18:00 CDT fentaNYL No Route: IV, Mem oria (ANES) 01-21 Drug form: l 17:18: INJ, ONCE, [place] Stop date: 01/21/21 12:18:00 CDT niCARdipine No [...] janice 01-21 (Same as: l 13:16: Mylicon, [place] 00 Phazyme, Genasyme) calcium No See Memoria [...] tablet 13:04: (two) 35 times a day. linaGLIPtin Yes 5mg QD Take 5 mg U T (TRADJENTA 7-16 by mouth 1 Hea lth PO) 13:03: (one) time 11 each day. cholecalcif Yes 5000U QD Take 5,000 UT mansi (D3-5) 7-16 Units by Heal th 5,000 Units 13:03: mouth 1 tablet 11 (one) time each day. folic Yes 1{tbl} QD Take 1 UT acid-vitami 7-16 tablet by a lth n B 13:03: mouth 1 complex-vit 11 (one) time nava each day. C-selenium- zinc (Dialyvite) 3 MG tablet Xifaxan 550 Yes 1{tbl} QD Take 1 UT MG tablet 7-07 tablet by Healt h 00:00: mouth 1 00 (one) time each day. rifaximin Yes 550 mg = 1 Me moria 550 MG Oral 06 tab, PO, l Tablet 18:46: TID, # 42 Jake n [XIFAXAN] 00 tab, 2 Refill(s), Pharmacy: [facility], 154.94, cm, 12/24/20 10:43:00 CDT, Height, 71.818, kg, 12/24/20 10:43:00 CDT, Weight {2 (480 ML Yes See Memoria Magnesium 12-24 Instructio l Sulfate 18:12: ns, take Jake n 0.0277 00 as MEQ/ML / directed, potassium give sulfate clenpiq if 0.0374 not MEQ/ML / covered by sodium insurance, sulfate # 1 ea, 0 0.257 Refill(s), MEQ/ML Oral Pharmacy: Solution) } [facility] [Suprep 808, Bowel Prep 154.94, [...] 0 Memor ia 7-06 Refill(s) l 15:53: [place] 00 Dialyvite 0 Yes 0 Memoria 5000 [...] Take 7.5 UT (Buspar) 6-19 mg by [facility] 7.5 MG 00:00: mouth 2 tablet 00 (two) times a day. buPROPion Yes 300mg Take 300 UT XL 6-19 mg by [facility] (Wellbutrin 00:00: mouth 1 XL) 300 MG [...] hr each day. tablet ascorbic Yes 500mg Q.[id number] Take 500 UT acid 5-15 [id number] mg by [facility] (Vitamin C) 00:00: 3D mouth 3 500 MG 00 (three) tablet times a day. sucralfate Yes 1{tbl} QD Take 1 UT (Carafate) 5-10 tablet by [facility] th 1 g tablet 00:00: mouth 1 00 (one) time each day. zinc Yes DAILY [facility] sulfate 50 5-10 ity of mg zinc 00:00: [place] (220 mg) 00 Medical capsule Branch ondansetron 0 Yes 4mg Take 4 mg U nivers 4 mg 4-13 by mouth ity of disintegrat 00:00: [place]. [place] tablet 00 [facility] GLIPIZIDE 5 2020-0 Yes [id number] TAKE 1 Univers mg tablet -06 TABLET [...] by ity o f 00:00: mouth at [place] 00 bedtime. Medical Branch doxazosin 4 Yes 4mg Take 1 Univ ers mg tablet 1-07 tablet by ity o f 00:00: mouth at [place] 00 bedtime. Medical Branch glipiZIDE 5 2019-06- No [id number] 5mg Take 1 Univers mg tablet 07-01 [...] by ity of tablet 00:00: mouth at [place] [address] bedtime. Medical Branch traZODone Yes 150mg Take 150 Uni vers 150 mg 8-13 mg by ity of tablet 00:00: mouth at [place] [address] bedtime. Medical Branch erythromyci 2020- No [id number] .5[in_u Place 0.5 Univers n 5 mg/gram [...] l 59 Center hydrALAZINE 2017-0 Yes 100mg Q.[id number] Take [address] [facility] (APRESOLINE 7-20 [id number] mg by L ukes - ) 100 MG 15:20: 3D mouth 3 Medica l tablet 59 (three) Center times daily. magnesium 2017-0 Yes 400mg QD Take [address] [facility] oxide 7-20 mg by [facility] (MAG-OX) 15:20: mouth Medical 400 mg 59 daily. Center tablet metoclopram 2017-0 Yes 10mg Q.[id number] Take [address] [facility] gadiel HCl 7-20 [id number] by mouth 3 [facility] - (REGLAN) 10 [...] l 59 Center hydrALAZINE 2017-0 Yes 100mg Q.[id number] Take [address] [facility] (APRESOLINE 7-20 [id number] mg by L ukes - ) 100 MG 15:20: 3D mouth 3 Medica l tablet 59 (three) Center times daily. magnesium 2017-0 Yes 400mg QD Take [address] [facility] oxide 7-20 mg by [facility] - (MAG-OX) 15:20: mouth Medical 400 mg 59 daily. Center tablet metoclopram 2017-0 Yes 10mg Q.[id number] Take [address] [facility] gadiel HCl 7-20 [id number] by mouth 3 [facility] - (REGLAN) 10 [...] l 59 Center hydrALAZINE 2017-0 Yes 100mg Q.[id number] Take [address] [facility] [address] (APRESOLINE 7-20 [id number] mg by L ukes - ) 100 MG 15:20: 3D mouth 3 Medica l tablet 59 (three) Center times daily. magnesium 2017- Yes 400mg QD Take [address] [facility] oxide 7-20 mg by [facility] - (MAG-OX) 15:20: mouth Medical 400 mg 59 daily. Center tablet metoclopram 2017-0 Yes 10mg Q.[id number] Take [address] [facility] gadiel HCl 7-20 [id number] by mouth 3 [facility] - (REGLAN) 10 [...] tab, PO, l Tablet 15:07: Daily, # [place] 00 30 tab, 0 Refill(s), Pharmacy: [facility] [id number] Bumex No 0.5 mg, Memoria 2-09 Route: PO, l 15:00: Drug form: [place] 00 TAB, Daily, Dosing Weight 92.273, kg, Start date: 07/30/16 9:00:00 GAS STATION ATTENDANT, Duration: 30 day, Stop date: 08/28/16 9:00:00 GAS STATION ATTENDANT Lasix 2016-0 No Notes: Memoria 2-08 (Same [...] Total Volume: 1,000, Start date: 07/26/16 12:26:00 GAS STATION ATTENDANT, Duration: 30 day, Stop date: 08/25/16 12:25:00 GAS STATION ATTENDANT Sodium 2016-0 No 500 mL, Memoria Chloride 2-05 500 ml/hr, l 0.154 13:30: Infuse [place] MEQ/ML 00 Over: 1 Injectable hr, Route: Solution IV, 500, Drug form: INJ, ONCE, Priority: STAT, Dosing Weight 92.273 kg, Start date: 07/26/16 7:30:00 GAS STATION ATTENDANT, Duration: 1 doses or times, Stop date: 07/26/16 7:30:00 GAS STATION ATTENDANT Insulin 2016- No 60 Memoria regular 2-04 [...] Weight 92.273, kg, Start date: 07/24/16 9:00:00 GAS STATION ATTENDANT, Duration: 30 day, Stop date: 08/22/16 9:00:00 GAS STATION ATTENDANT 24 HR No Notes: Memoria Divalproex 2-03 (Same as: l Sodium 500 15:00: Depakote Her braden MG Extended 00 ER) Release Tablet [Depakote] gabapentin No Notes: Memor ia 300 MG Oral 2-03 (Same as: l Capsule 15:00: Neurontin) Herm naeem Aspirin 81 No Notes: Memor ia MG Chewable 2-03 Take with l Tablet 15:00: food. [place] 00 Lasix No Notes: Memoria 2-03 (Same [...] form: ERTAB, Daily, Start date: 07/24/16 9:00:00 GAS STATION ATTENDANT, Duration: 30 day, Stop date: 08/22/16 9:00:00 GAS STATION ATTENDANT Insulin No Notes: Memoria Glargine 2-03 Same [...] Notes: Memoria 2-03 (Same l 14:50: as:MORPhin [place] 00 e Sulfate) Insulin, No Notes: Memoria Aspart, 2-03 Roll in l Human 13:30: palms of [place] 00 hands gently; Do not shake vigorously . (Same as: NovoLOG) "single patient use only" WASTE: F/P - Black; E - Municipal Trash Bin Stable for 28 days at room temperatur e. Expires in days from ____Date Dilaudid No Notes: Memoria 2-03 Same as l 11:28: Dilaudid [place] 00 Insulin, No Notes: Memoria Aspart, 2-03 Roll in l Human 08:40: palms of [place] 00 hands gently; Do not shake vigorously [...] Blood Glucose Results, Start date: 07/24/16 2:40:00 GAS STATION ATTENDANT, Duration: 30 day, Stop date: 08/23/16 2:39:00 GAS STATION ATTENDANT Dextrose No 25 gm, 50 Mendoza janice 50% Syringe 2-03 mL, Route: l 08:40: IVP, Drug [place] 00 Form: INJ, Dosing Weight 92.273, kg, PRN, PRN Blood Glucose Results, Start date: 07/24/16 2:40:00 GAS STATION ATTENDANT, Duration: 30 day, Stop date: 08/23/16 2:39:00 GAS STATION ATTENDANT Docusate No Notes: Memoria 2-03 (Same as: l 07:20: Colace) [place] (Do Not Crush) Ondansetron No Notes: Mendoza [...] l / 04:09: Duoneb) Vin Ipratropium 00 [place] 0.167 MG/ML Inhalant Solution [DuoNeb] Furosemide 2015-06 Yes 80 mg = 2 Me moria 40 MG Oral 2-26 tab, PO, l Tablet 16:34: BID, # 120 Nidia nn 00 tab, 0 Refill(s) atorvastati 2015-06 Yes 40 mg = 1 M emoria n 40 mg 2-26 tab, PO, l oral tablet 16:34: Bedtime, # [place] 00 30 tab, 0 Refill(s) Insulin 2015-06 [...] tab, PO, l tablet 16:34: Daily, # [place] 00 30 tab, 0 Refill(s) Lasix 2015-06 No Notes: Memoria 2-26 (Same as: l 15:00: Lasix) [place] 00 May cause GI upset. Give with food or milk. Magnesium 2015-06 No Notes: Memori a Oxide 2-24 (Same as: l 13:36: Mag-Ox [place] 00 400) Magnesium oxide 393ot=497v g elemental magnesium Dose=____m g magnesium oxide (___mg elemental magnesium) Magnesium 2015-06 No Notes: Memori a Oxide 2-24 (Same as: l 09:47: Mag-Ox Vin 00 400) Magnesium oxide 089oz=588v g elemental magnesium Dose=____m g magnesium oxide [...] Memoria 2-24 (Same as: l 00:00: Norvasc) [place] 00 Insulin 2015-06 No Notes: Memoria Glargine [...] tab, PO, l tablet 15:35: Daily, 0 [place] 00 Refill(s) Sertraline 2015-06 Yes 200 mg [...] Weight 86.364, kg, Start date: 06/11/16 9:00:00 GAS STATION ATTENDANT, Duration: 30 day, Stop date: 07/10/16 9:00:00 GAS STATION ATTENDANT Insulin 2015-06 No Notes: Memoria Glargine 2-22 Same as: l 100 UNT/ML 15:00: Lantus) Do H ermann Injectable 00 not hold Solution insulin [Lantus] without contacting prescriber WASTE: F/P - Black; E - Municipal Trash Bin Zoloft 2015-06 No Notes: Memoria 2-22 (Same as: l 15:00: Zoloft) [place] 00 Insulin, 2015-06 No Notes: Memoria Aspart, 2-22 Roll in l Human 12:55: palms of [place] 00 hands gently; Do not shake vigorously [...] l / 03:00: Duoneb) Vin Ipratropium 00 [place] 0.167 MG/ML Inhalant Solution [DuoNeb] gabapentin 2015-06 No 300 mg, Mendoza janice 300 MG Oral 08-12 Route: PO, l Capsule 03:00: Drug form: Herm naeem 00 CAP, Q12H, Dosing Weight 86.364, kg, (CrCl 30 - 59 ml/min), Start date: 06/10/16 21:00:00 GAS STATION ATTENDANT, Duration: 30 day, Stop date: 07/10/16 9:00:00 GAS STATION ATTENDANT divalproex 2015-06 No Notes: Memor ia sodium [...] Syringe 2-22 25 mL, l 00:50: Route: [place] 00 IVP, Drug Form: INJ, Dosing Weight 86.364, kg, PRN, PRN Blood Glucose Results, Start date: 06/10/16 18:50:00 GAS STATION ATTENDANT, Duration: 30 day, Stop date: 07/10/16 18:49:00 GAS STATION ATTENDANT Glucagon 2015-06 No 1 mg, Memoria 2-22 Route: IM, l 00:50: Drug form: PDR/INJ, PRN, Dosing Weight 86.364, kg, PRN Blood Glucose Results, Start date: 06/10/16 18:50:00 GAS STATION ATTENDANT, Duration: 30 day, Stop date: 07/10/16 18:49:00 GAS STATION ATTENDANT Hydralazine 2015-06 No Notes: Mendoza janice 2-22 [...] Weight 86.364, kg, Start date: 06/10/16 18:06:00 GAS STATION ATTENDANT, Stop date: 06/10/16 18:06:00 GAS STATION ATTENDANT hydrOXYzine 2015-06 No Notes: Mendoza janice pamoate 2-21 (Same as: l 23:00: Vistaril) Furosemide 2015-06 No 60 mg, Memor ia 2-21 Route: l 22:32: IVP, Drug form: INJ, ONCE, Dosing Weight 86.364, kg, Start date: 06/10/16 16:32:00 GAS STATION ATTENDANT, Stop date: 06/10/16 16:32:00 GAS STATION ATTENDANT Lasix 2015-06 No Notes: Memoria 08-11 (Same as: l 17:22: Lasix) MEDICATION WASTE Product Size: 40 mg Product Wasted: _0__ mg Albuterol 2015-06 No Notes: Memori a 0.833 MG/ML 08-11 (Same as: l / 17:22: Duoneb) Ipratropium 00 [place] 0.167 MG/ML Inhalant Solution [DuoNeb] Promethazin Yes 25 mg = 1 M emoria e -06 supp, [place], l Hydrochlori 14:45: Q6H, Jake n de [...] 0 Memori a -06 Refill(s) l 11:18: [place] 00 Ondansetron Yes 0 Memori a 1-06 Refill(s) l 11:17: [place] Benztropine 2015-0 Yes 0 Memori a 1-06 [...] Marx Rate: 500 l 0.9% 23:45: ml/hr, [place] (Bolus) IV 00 Infuse 500 mL over: [...] insulin No Blake 10 unit, Mem oria isophane-INTERACTIVE MARKETING STRATEGIST 6-11 Deangelo 0.1 mL, l H 02:00: [...] 6-10 Omidvar Route: l 21:33: IVP, ONCE, [place] 00 Start date: 11/29/11 16:33:00, Stop date: [...] 2011-0 No Blake 14 unit, Mem oria isophane-INTERACTIVE MARKETING STRATEGIST 6-10 Deangelo 0.14 mL, l H 14:00: Brisa Route: [place] 00 SUB-Q, Drug form: INJ, Daily, Start date: 11/29/11 9:00:00, Duration: 30 day, Stop date: 12/28/11 9:00:00 Insulin 2011-0 No Blake 10 unit, Mem oria regular 6-10 Deangelo 0.1 mL, l 14:00: Brisa Route: [place] 00 SUB-Q, Drug form: SOLN, Daily, Start [...] l IV 1,000 mL 06:29: Brisa ml/hr, [place] Infuse over: 5 hr, Route: IV, Dosing [...] mL, Route: l 04:01: Brown IVP, Drug [place] 00 form: INJ, ONCE, Priority: STAT, Start [...] 1,000 mL 11-27 Rate: l 20:36: 1,000 [place] 00 ml/hr, Infuse over: 1 hr, Route: IV, Dosing Weight 57.273 kg, Total Volume: 1,000, Start date: 11/28/11 15:36:00, Duration: 30 day, Stop date: 12/28/11 15:35:00 Ativan No Arif Domenico 2 mg, 1 Mem oria 6-09 mL, Route: l 20:35: IVP, Drug [place] 00 form: INJ, ONCE, Priority: STAT, Start date: 11/28/11 15:35:00, Stop date: 11/28/11 15:35:00 Novolin R Yes Hughes-Jason 8 unit, M emoria 100 3-30 [place] SUB-Q, l units/mL 17:47: Eunice Q12H, 2 He rmann injectable 42 Pu vial, solution Substituti on Allowed, SOLN Novolin N Yes Hughes-Jason 10 unit, Memoria 100 3-30 [place] SUB-Q, l units/mL 17:46: Eunice Bedtime, H ermann subcutaneou 27 Pu 10 ml, s injection Substituti on Allowed, SUSP Novolin N Yes Hughes-Jason 14 unit, Memoria 100 3-30 [place] SUB-Q, l units/mL 17:44: Eunice QAM, 1 Her braden subcutaneou 37 Pu vial, s injection Substituti on Allowed, SUSP magnesium No Hughes-Jason 400 mg, 1 Memoria oxide 3-30 [place] tab, l 14:55: Dawson Route: PO, Her braden 00 Pu Drug form: TAB, ONCE, Priority: STAT, Start date: 09/18/11 9:55:00, Stop date: 09/18/11 9:55:00 Insulin No Hughes-Jason 8 unit, Mem oria regular 3-30 [place] 0.08 mL, l 14:22: Dawson Route: Vin 00 Pu SUB-Q, Drug form: SOLN, ONCE, Priority: STAT, Start date: 09/18/11 9:22:00, Stop date: 09/18/11 9:22:00 Lactated 2012-0 No Hughes-Jason 1,000 mL, Memoria Ringers 3-30 [place] Rate: l (Bolus) IV 14:16: Dawson 1,000 He rmann 1,000 mL 00 Pu ml/hr, Infuse over: 1 hr, Route: IV, Total Volume: 1,000, Bolus Dose, Priority: STAT, Start date: 09/18/11 9:16:00, Duration: 1 doses or times, Stop date: 09/18/11 10:15:00 Sodium 2011-0 No Hughes-Jason 1,000 mL, Me moria Chloride 3-30 [place] Rate: l 0.9% 14:06: Dawson 1,000 [place] (Bolus) IV 00 Pu ml/hr, 1000 mL Infuse over: 1 hr, Route: IV, kg, Total Volume: 1,000, Bolus Dose, Priority: STAT, Start date: 09/18/11 9:06:00, Duration: 1 doses or times, Stop date: 09/18/11 10:05:00 sulfamethox 2011-0 Yes Substituti Memoria azole 3-30 on Allowed l 14:04: Vin 58 Sodium 2011-0 No Hughes-Jason 1,000 mL, Me moria Chloride 3-30 [place] Rate: l 0.9% 13:56: Dawson 1,000 Vin (Bolus) IV 00 Pu ml/hr, 1000 mL Infuse over: 1 hr, Route: IV, kg, Total Volume: 1,000, Bolus Dose, Priority: STAT, Start date: 09/18/11 8:56:00, Duration: 1 doses or times, Stop date: 09/18/11 9:55:00 clindamycin 2011-0 No Eber L 300 mg, 2 Memoria 3-21 Anabelle cap, l 21:00: Route: PO, [place] 00 Drug form: CAP, Q8H, Start date: 09/09/11 16:00:00, Duration: 30 day, Stop date: 10/09/11 8:00:00 Colace 100 2011-0 Yes Luna 100 mg, 1 Memoria mg oral 3-21 Amelia cap, PO, l capsule 18:47: [place] BID, 60 Her braden 19 cap, Substituti on Allowed, CAP clindamycin 2011- Yes Luna 300 mg, 2 Memoria 150 mg oral 3-21 Amelia cap, PO, l capsule 18:46: Zeeshan Q8H, 30 Her braden 55 cap, Substituti on Allowed, CAP [place] Yes Luna 1 tab, PO, Memoria 10/325 oral -21 Amelia Q4H, PRN, l tablet 18:46: [place] 30 tab, Herm naeem 36 Pain, Substituti on Allowed, Maintenanc e, TAB [place] No Hollie Donavan 1 tab, Mendoza janice [...] 3-19 Omidvar tab, l 15:30: Route: PO, [place] 00 Drug form: TAB, Daily, Start date: 09/07/11 10:30:00, Duration: 30 day, Stop date: 10/07/11 9:00:00 flumazenil 2011-0 No Gayle 0.2 mg, 2 Memoria 3-19 Josefina mL, Route: l 14:19: [place] IVP, Drug Jake n 00 form: INJ, PRN, PRN Benzodiaze pine Reversal, Initial dose, Start date: 09/07/11 9:19:00, Duration: 1 day, Stop date: 09/08/11 9:18:00 naloxone 2011-0 No Gayle 0.04 mg, Me moria 3-19 Josefina 0.1 mL, l 14:19: [place] Route: [place] 00 IVP, Drug form: INJ, Q2MIN, PRN [...] Duration: 30 day, Stop date: 10/04/11 18:10:00 [place] 2011-0 No Mahammad 1 tab, Memori a [...] 3-16 Kavon 0.1 mL, l 14:50: Route: [place] 00 IVP, Drug form: INJ, Q2MIN, PRN Narcotic Reversal, Start date: 09/04/11 9:50:00, Duration: 30 day, Stop date: 10/04/11 9:49:00 [place] 2011-0 No [place] 1 tab, Memoria 10/325 [...] 3-16 Kavon 0.25 mL, l 13:37: Route: [place] 00 IVP, Drug form: INJ, Q5Min, PRN [...] 3-15 Omidvar tab, l 13:39: Route: PO, [place] Drug form: ERTAB, ONCE, Start date: 09/03/11 8:39:00, Stop date: 09/03/11 8:39:00 [place] 5/325 2011-0 No Rosalino 1 tab, M emoria oral tablet 3-15 Kavon Route: PO, l 05:00: Drug Form: [place] 00 TAB, Q4H, Start date: 09/03/11 0:00:00, [...] 3-14 Anabelle cap, l 17:00: Route: PO, [place] 00 Drug form: ERCAP, Daily, Give qAM after today's dose., Start date: 09/02/11 12:00:00, Duration: 30 day, Stop date: 10/02/11 9:00:00 [place] 5/325 2011-0 No Rosalino 1 tab, M [...] Route: l 14:00: IVPB, Drug form: INJ, [id number], Start date: 09/02/11 9:00:00, Duration: 30 day, Stop date: 10/01/11 21:00:00 clindamycin 2011-0 No Eber L 600 mg, 4 Memoria (SCIP) 3-14 Anabelle mL, Route: l 10:00: IVPB, [place] 00 [id number], Start date: 09/02/11 5:00:00, Duration: 3 doses or times, Stop date: 09/02/11 21:00:00 clindamycin 2011-0 No Yury 600 mg, 4 Memoria (SCIP) 3-14 Silverio mL, Route: l 04:00: [place] IVPB, Vin 00 [id number], Start date: 09/01/11 23:00:00, Duration: 3 doses or times, Stop date: 09/02/11 15:00:00 insulin No [place] 15 unit, Mendoza janice isophane-INTERACTIVE MARKETING STRATEGIST 3-14 Omidvar 0.15 mL, l H 02:00: Route: Vin 00 SUB-Q, Drug form: INJ, Q12H, Start date: 09/01/11 21:00:00, Stop date: 10/01/11 9:00:00 labetalol No Mariaelena-Corea 5 mg, Me moria 3-14 Barbra Route: l 01:07: Feliciano IVP, [place] 00 Q5Min, PRN Elevated BP, Start date: [...] Barbra Route: l 01:07: Feliciano IVP, PRN, [place] 00 PRN Benzodiaze pine Reversal, Initial dose, Start date: 09/01/11 20:07:00, Duration: 30 day, Stop date: 10/01/11 20:06:00 ondansetron 2011-0 No Mariaelena-Corea 4 mg, Memoria 3-14 Barbra Route: l 01:07: Feliciano IVP, ONCE, [place] PRN Nausea & Vomiting, Start date: 09/01/11 20:07:00 vancomycin 2011-0 No Mele 1 gm, Mem oria 3-14 Gauvain Route: l 01:00: IVPB, Drug form: INJ, [id number], Start date: 09/01/11 20:00:00, Duration: 30 day, [...] Route: l 00:00: IVPB, Drug form: INJ, [id number], Start date: 09/01/11 19:00:00, Duration: 30 day, Stop date: 10/01/11 7:00:00 insulin 2011-0 No Missael 6 unit, Memori a aspart 3-13 Movva 0.06 mL, l 23:23: Route: Vni 00 SUB-Q, Drug form: SOLN, TID-Before Meals, [...] Movva mL, Route: l 23:23: IVP, Drug [place] Form: INJ, PRN, PRN Blood Glucose Results, Start date: 09/01/11 18:23:00, Duration: 30 day, Stop date: 10/01/11 18:22:00 morphine 2011-0 No Daja Shannan 2 mg, 1 M emoria Sulfate 3-13 Beni mL, Route: l 21:14: IVP, Drug [place] form: INJ, Q4H, PRN Severe Pain, Start date: 09/01/11 16:14:00, Stop date: 10/01/11 16:13:00 Lactated 2011-0 No Cesar 1,000 mL, Me moria Ringers IV 3-13 Manuel [place] Rate: 100 l 1,000 mL 19:03: ml/hr, [...] Madden Rate: l 0.9% 14:53: Gurinder 1,000 [place] (Bolus) IV 00 ml/hr, 1,000 mL Infuse [...] 3-13 [place] Rate: l 0.9% 10:41: 1,000 [place] (Bolus) IV 00 ml/hr, 1000 mL Infuse over: 1 hr, Route: IV, Dosing Weight 68.182 kg, Total Volume: 1,000, Bolus Dose, Priority: STAT, Start date: 09/01/11 5:41:00, Duration: 1 doses or times, Stop date: 09/01/11 6:40:00 ondansetron 2011-0 No Bee L 4 mg, Memoria 3-13 Sayner Route: l 09:06: IVP, Drug [place] 00 form: INJ, ONCE, Priority: STAT, Start date: 09/01/11 4:06:00, Stop date: 09/01/11 4:06:00 morphine 2011-0 No Bee L 4 mg, Mem oria Sulfate 3-13 Cruz[place] Route: l 09:06: IVP, ONCE, [place] 00 Priority: STAT, Start date: 09/01/11 4:06:00, Stop date: 09/01/11 4:06:00 Sodium 2011-0 No Bee L 1,000 mL, M emoria Chloride - [place] Rate: l 0.9% 08:42: 1,000 [place] (Bolus) IV 00 ml/hr, 1000 mL Infuse over: 1 hr, Route: IV, Dosing Weight 68.182 kg, Total Volume: 1,000, Bolus Dose, Priority: STAT, Start date: 09/01/11 3:42:00, Duration: 1 doses or times, Stop date: 09/01/11 4:41:00 Insulin 2011- No Bee L 8 unit, Me moria regular 08-31 [place]ner 0.08 mL, l 08:30: Route: [place] 00 IVP, Drug form: SOLN, ONCE, Priority: STAT, Start date: 09/01/11 3:30:00, Stop date: 09/01/11 3:30:00 Sodium 2011-0 No Bee L 1,000 mL, M emoria Chloride 08-31 [place]ner Rate: l 0.9% 07:29: 1,000 [place] (Bolus) IV 00 ml/hr, 1,000 mL Infuse over: 1 hr, Route: IV, Dosing Weight 68.182 kg, Total Volume: 1,000, Bolus Dose, Priority: STAT, Start date: 09/01/11 2:29:00, Duration: 1 doses or times, Stop date: 09/01/11 3:28:00 potassium 2011-0 No Velásquez Noam 40 mEq, 2 Memoria chloride 3-04 Akmal tab, l 15:00: Route: PO, [place] 00 Drug form: ERTAB, BID, Start date: [...] Akmal SUB-Q, l units/mL 14:42: BID, 3 [place] subcutaneou 04 vial, 3, s injection 3, Substituti on Allowed, SUSP insulin Yes Velásquez Noam 5 Units, Memoria regular 3-04 Akmal SUB-Q, l human 14:40: TID, 30 [place] recombinant 10 vial, 3, 100 3, units/mL Substituti injectable on solution Allowed, before breakfast lunch and dinner, [facility] lunch and dinner potassium No Velásquez [...] Akmal mL, Route: l 12:26: IVPB, Drug [place] 00 form: INJ, ONCE, Total dose = [...] Rodriguez 10 mL, l 16:25: Ahmed Route: [place] 00 IVPB, ONCE, Start date: 08/22/11 10:25:00, [...] mL, Route: l 17:15: Ahmed IVP, Drug [place] 00 form: INJ, Q8H, PRN Nausea, Start date: 08/20/11 11:15:00, Duration: 30 day, Stop date: 09/19/11 11:14:00 insulin 2011-0 No Yury 10 unit, Mem oria isophane-INTERACTIVE MARKETING STRATEGIST 3- [place] Route: l H 16:00: [place] SUB-Q, Nidia nn 00 ONCE, Start date: 08/20/11 10:00:00, Stop date: 08/20/11 10:00:00 trazodone 2012-0 Yes 200 mg, 2 Mem oria 100 mg oral 3-01 tab, PO, l tablet 15:37: Bedtime, [place] 27 90 tab, Substituti on Allowed, TAB benztropine 2011-0 Yes 1 mg, 1 Mem oria 1 mg oral 3-01 tab, PO, l tablet 15:35: BID, 60 [place] 25 tab, Substituti on Allowed, TAB Geodon 60 2011-0 Yes 120 mg, 2 Mem oria mg oral 3-01 cap, PO, l capsule 15:35: Bedtime, Jake n 12 60 cap, Substituti on Allowed, CAP insulin 2011-0 No Yury 10 unit, Mem oria isophane-INTERACTIVE MARKETING STRATEGIST 3- [place] Route: l H 15:00: Rivero [...] Allowed insulin No 10 unit, Memori a isophane-INTERACTIVE MARKETING STRATEGIST 3- SUB-Q, l H 09:26: BID, Vin [...] 2011-0 No Yury 18 unit, Mem oria isophane-INTERACTIVE MARKETING STRATEGIST 3- [place] 0.18 mL, l H 08:58: [...] ondansetron No Hughes-Jason 4 mg, emoria 08-19 [place] Route: l 07:42: Dawson IVP, Drug Herm naeem 00 Pu form: INJ, ONCE, Priority: STAT, Start date: 08/20/11 1:42:00, Stop date: 08/20/11 1:42:00 GI cocktail No Hughes-Jason 30 ml, Memoria 08-19 [place] Route: PO, l 05:12: Eunice Drug Form: Her braden 00 Pu SUSP, ONCE, STAT, Start date: 08/19/11 23:12:00, Stop date: 08/19/11 23:12:00 ondansetron 0 No [facility] [place] Route: PO, l 05:10: Dawson Drug form: Her braden 00 Pu TABDIS, ONCE, Priority: STAT, Start date: 08/19/11 23:10:00, Stop date: 08/19/11 23:10:00 Lactated 2011-0 No Hughes-Jason 1,000 mL, Memoria Ringers 3-01 [place] Rate: l (Bolus) IV 05:10: Dawson 1,000 He rmann 1000 mL 00 Pu ml/hr, Infuse over: 1 hr, Route: IV, Total Volume: 1,000, Bolus Dose, Priority: STAT, Start date: 08/19/11 23:10:00, Duration: 1 doses or times, Stop date: 08/20/11 0:09:00 Insulin 2011- No Hughes-Jason 7 unit, Mem oria regular 08-19 [place] 0.07 mL, l 04:15: Dawson Route: [place] 00 Pu SUB-Q, Drug form: SOLN, ONCE, Priority: STAT, Start date: 08/19/11 22:15:00, Stop date: 08/19/11 22:15:00 Geodon 60 2011-0 No Yury 60 mg, 1 M emoria mg oral 2-29 Gato cap, PO, l capsule 23:24: Rivero BID, 180 [place] 43 cap, Substituti on Allowed, CAP trazodone [...] Wong Route: IV, l 21:57: Pooja ONCE, [place] 00 Start date: 08/19/11 15:57:00, Stop date: [...] 2020-02-20 [facility]00 [facility] Influenza Virus 2020-02-20 Completed [facility] Vaccine 00:00:00 [facility] TDAP (ADACEL) VACCINE 2019-07-25 Completed Uni versity of 00:00:00 [facility] Meningococcal B, OMV 2019-07-25 Completed Univ ersity of 00:00:00 [facility] Meningococcal 2019-07-25 Completed University of Polysaccharide 00:00:00 [place] [facility] (groups A, C, Y and Branc h W-135) conjugate vaccine (MCV4P) TDAP (ADACEL) VACCINE 2019-07-25 Completed Uni versity of 00:00:00 [facility] Meningococcal B, OMV 2019-07-25 Completed Univ ersity of 00:00:00 [facility] Meningococcal 2019-07-25 Completed University of Polysaccharide 00:00:00 [place] [facility] (groups A, C, Y and [...] of Vaccine Quad IM 3+ 00:00:00 [facility] Influenza Virus 2017-06-22 Completed Universit y of Vaccine Quad IM 3+ 00:00:00 [facility] Influenza Virus 2016-04-02 Completed Universit y of Vaccine Quad IM 3+ 00:00:00 [facility] Influenza Virus 2016-04-02 Completed Universit y of Vaccine Quad IM 3+ 00:00:00 [facility] Influenza Virus 2015-10-28 Completed Universit y of Vaccine Quad IM 3+ 00:00:00 [facility] Influenza Virus 2015-10-28 Completed Universit y of Vaccine Quad IM 3+ 00:00:00 [facility] Vital Signs Vital Name Observation Time Observation [...] 2020-06-27 16:33:00 171 mm[Hg] Univer sity of [facility] Diastolic blood 2020-06-27 16:33:00 98 mm[Hg] Unive rsity of [facility] Heart rate 2020-06-27 16:33:00 71 /min Universi [facility] Respiratory rate 2020-06-27 16:29:00 19 /min Univ ersity of [facility] Body height 2020-06-27 16:29:00 154[facility]9 [facility] weight 2020-06-27 16:29:00 77.293 [facility] BMI 2020-06-27 16:29:00 32.20 kg/m2 [facility] Branch Oxygen saturation in 2020-06-27 16:29:00 99 /min University Arterial blood by [facility] Pulse oximetry Branch Height/Length 2021-07-08 11:50:13 154.9 cm Measured Weight Dosing 2021-07-08 11:50:13 85.00 kg Height/Length 2021-07-08 11:47:31 154.9 cm Measured Weight Dosing 2021-07-08 11:47:31 85.00 kg Height/Length 2021-07-08 11:47:20 154.9 cm Measured Weight Dosing 2021-07-08 11:47:20 85.00 kg Systolic blood 2021-07-08 19:43:00 189 mm[Hg] [facility] pressure Diastolic blood 2021-07-08 19:43:00 104 mm[Hg] [facility] [place] pressure Heart rate 2021-07-08 18:56:00 74 /min [facility] Body temperature 2021-07-08 18:56:00 36.39 Cathleen [facility] Body height 2021-07-08 18:56:00 157.5 cm [facility] Body weight 2021-07-08 18:56:00 72.938 kg [facility] BMI 2021-07-08 18:56:00 29.41 kg/m2 [facility] Oxygen saturation in 2021-07-08 18:56:00 100 /min [facility] Arterial blood by Pulse oximetry Respiratory rate 2021-06-18 16:36:00 11 /min [facility] Systolic (mm Hg) 2021-01-29 20:03:00 [facility] rial Vin Diastolic (mm Hg) 2021-01-29 20:03:00 Mem orial Vin Systolic (mm Hg) 2021-01-29 19:40:00 M[facility]za rial Vin Diastolic (mm Hg) 2021-01-29 19:40:00 [facility] [place] Systolic (mm Hg) 2021-01-29 18:05:00 M[facility]za rial Vin Diastolic (mm Hg) 2021-01-29 18:05:00 Mem orial Vin Respitory Rate 2021-01-29 16:55:00 [facility] [place] Temperature Oral (F) 2021-01-29 16:45:00 97.3 F [facility] Respitory Rate 2021-01-29 16:45:00 [facility] [place] Respitory Rate 2021-01-29 16:30:00 [facility] [place] Temperature Oral (F) 2021-01-29 13:10:00 97.6 F [facility] Systolic (mm Hg) 2021-01-27 05:00:00 [facility] rial Vin Diastolic (mm Hg) 2021-01-27 05:00:00 [facility] [place] Systolic (mm Hg) 2021-01-27 04:00:00 [facility]za rial Vin Diastolic (mm Hg) 2021-01-27 04:00:00 Mem orial Vin Systolic (mm Hg) 2021-01-27 03:00:00 M[facility]za [facility] [place] Diastolic (mm Hg) 2021-01-27 03:00:00 Mem orial Vin Respitory Rate 2021-01-26 19:00:00 Memori al Vin Respitory Rate 2021-01-26 18:00:00 Memori al Vin Respitory Rate 2021-01-26 17:00:00 [facility] [place] Temperature Oral (F) 2021-01-22 13:00:00 97.6 F [facility] Height 2021-01-21 18:25:00 149.86 cm [facility] Weight 2021-01-21 18:25:00 [facility] BMI Calculated 2021-01-21 18:25:00 Memori al Vin Height 2021-01-21 17:09:00 157.48 cm [facility] Height 2021-01-21 13:09:00 157.48 cm [facility] Weight 2021-01-21 13:09:00 [facility] BMI Calculated 2021-01-21 13:09:00 [facility] [place] Heart Rate 2021-01-21 12:50:00 [facility] Systolic (mm Hg) 2020-12-24 15:43:00 Mendoza rial Vin Diastolic (mm Hg) 2020-12-24 15:43:00 Mem [facility] [place] Heart Rate 2020-12-24 15:43:00 [facility] Height 2020-12-24 15:43:00 154.94 cm [facility] Weight 2020-12-24 15:43:00 [facility] BMI Calculated 2020-12-24 15:43:00 [facility] [place] Systolic (mm Hg) 2016-07-30 14:00:00 M[facility]za rial Vin Diastolic (mm Hg) 2016-07-30 14:00:00 [facility] [place] Respitory Rate 2016-07-30 14:00:00 [facility] [place] Heart Rate 2016-07-30 14:00:00 [facility] Temperature Oral (F) 2016-07-30 14:00:00 97.4 F [facility] Systolic (mm Hg) 2016-07-30 10:45:00 M[facility]za rial Vin Diastolic (mm Hg) 2016-07-30 10:45:00 Mem [facility] [place] Heart Rate 2016-07-30 10:45:00 [facility] Temperature Oral (F) 2016-07-30 10:45:00 97.2 F [facility] Respitory Rate 2016-07-30 10:45:00 Memori al Vin Heart Rate 2016-07-30 06:35:00 [facility] [place] Temperature Oral (F) 2016-07-30 06:35:00 97.0 F [facility] Respitory Rate 2016-07-30 06:35:00 Memori al Vin Systolic (mm Hg) 2016-07-30 06:35:00 M[facility]za rial Vin Diastolic (mm Hg) 2016-07-30 06:35:00 Mem orial Vin Weight 2016-07-24 02:13:00 [facility] BMI Calculated 2016-07-24 02:13:00 [facility] [place] Height 2016-07-24 02:13:00 160.02 cm [facility] Respitory Rate 2016-06-15 15:00:00 Memori al Vin Systolic (mm Hg) 2016-06-15 15:00:00 Mendoza rial [place] Diastolic (mm Hg) 2016-06-15 15:00:00 Mem orial Vin Respitory Rate 2016-06-15 14:00:00 [facility] [place] Systolic (mm Hg) 2016-06-15 14:00:00 Mendoza rial [place] Diastolic (mm Hg) 2016-06-15 14:00:00 Mem orial Vin Respitory Rate 2016-06-15 13:29:00 Memori al Vin Systolic (mm Hg) 2016-06-15 13:29:00 Mendoza rial [place] Diastolic (mm Hg) 2016-06-15 13:29:00 Mem orial Vin Temperature Oral (F) 2016-06-14 10:56:00 97.1 F [facility] [place] Temperature Oral (F) 2016-06-14 06:55:00 97.1 F [facility] Temperature Oral (F) 2016-06-12 10:00:00 96.8 F [facility] Weight 2016-06-11 04:25:00 [facility] Height 2016-06-11 04:25:00 160.02 cm [facility] BMI Calculated 2016-06-11 04:25:00 Memori al Vin Heart Rate 2016-06-11 02:04:00 [facility] Heart Rate 2016-06-11 00:00:00 [facility] Heart Rate 2016-06-10 20:30:00 [facility] Weight 2016-06-10 16:04:00 [facility] BMI Calculated 2016-06-10 16:04:00 Memori al Vin Height 2016-06-10 16:04:00 160.02 cm [facility] Temperature Oral (F) 2014-06-26 15:12:00 98.0 F [facility] Systolic (mm Hg) 2014-06-26 15:12:00 M[facility]za rial [place] Heart Rate 2014-06-26 15:12:00 [facility] Diastolic (mm Hg) 2014-06-26 15:12:00 Mem orial Vin Respitory Rate 2014-06-26 15:12:00 Memori al Vin Systolic (mm Hg) 2014-06-26 13:53:00 M[facility]za rial Vin Diastolic (mm Hg) 2014-06-26 13:53:00 Mem orial Vin Respitory Rate 2014-06-26 13:53:00 Memori al Vin Temperature Oral (F) 2014-06-26 13:53:00 98.0 F [facility] Temperature Oral (F) 2014-06-26 12:37:00 98.2 F [facility] Respitory Rate 2014-06-26 12:37:00 [facility] [place] Systolic (mm Hg) 2014-06-26 12:37:00 M[facility]za rial Vin Diastolic (mm Hg) 2014-06-26 12:37:00 Mem orial Vin Heart Rate 2014-06-26 09:21:00 [facility] Heart Rate 2014-06-26 06:08:00 [facility] Height 2014-06-26 05:35:00 154.94 cm [facility] Weight 2014-06-26 05:35:00 [facility] BMI Calculated 2014-06-26 05:35:00 Memori al Vin Respitory Rate 2013-04-15 06:10:00 [facility] [place] Diastolic (mm Hg) 2013-04-15 06:10:00 [facility] [place] Heart Rate 2013-04-15 06:10:00 [facility] Systolic (mm Hg) 2013-04-15 06:10:00 [facility] rial Vin Temperature Oral (F) 2013-04-15 06:10:00 98.7 F [facility] Respitory Rate 2013-04-15 05:37:00 [facility] [place] Diastolic (mm Hg) 2013-04-15 05:37:00 Mem orial Vin Systolic (mm Hg) 2013-04-15 05:37:00 [facility]za rial [place] Temperature Oral (F) 2013-04-15 05:37:00 98.2 F [facility] Heart Rate 2013-04-15 05:37:00 [facility] Height 2013-04-15 02:06:00 160.02 cm [facility] Weight 2013-04-15 02:06:00 [facility] Temperature Oral (F) 2013-04-15 02:06:00 98.6 F [facility] Respitory Rate 2013-04-15 02:06:00 [facility] [place] Heart Rate 2013-04-15 02:06:00 [facility] Diastolic (mm Hg) 2013-04-15 02:06:00 [facility] [place] Systolic (mm Hg) 2013-04-15 02:06:00 Mendoza rial [place] Weight 2012-03-14 21:33:00 [facility] Systolic (mm Hg) 2011-12-01 00:33:00 [facility] rial Vin Respitory Rate 2011-12-01 00:33:00 [facility] Heart Rate 2011-12-01 00:33:00 [facility] Diastolic (mm Hg) 2011-12-01 00:33:00 Mem orial Vin Temperature Oral (F) 2011-12-01 00:33:00 99.6 F [facility] Diastolic (mm Hg) 2011-11-30 21:00:00 Mem orial Vin Heart Rate 2011-11-30 21:00:00 [facility] Respitory Rate 2011-11-30 21:00:00 Mem[facility] Vin Systolic (mm Hg) 2011-11-30 21:00:00 [facility] rial Vin Temperature Oral (F) 2011-11-30 21:00:00 99.8 F [facility] Respitory Rate 2011-11-30 16:30:00 Mem[facility] Vin Systolic (mm Hg) 2011-11-30 16:30:00 M[facility]za rial Vin Diastolic (mm Hg) 2011-11-30 16:30:00 Mem orial Vin Heart Rate 2011-11-30 16:30:00 [facility] Temperature Oral (F) 2011-11-30 16:30:00 99.8 F [facility] Weight 2011-11-29 11:40:00 [facility] Height 2011-11-29 11:40:00 157.48 cm [facility] Weight 2011-11-28 17:16:00 [facility] Weight 2011-09-18 13:30:00 [facility] Height 2011-09-18 13:30:00 154.94 cm [facility] Heart Rate 2011-09-09 13:31:00 [facility] Systolic (mm Hg) 2011-09-09 13:02:00 M[facility]za rial [place] Diastolic (mm Hg) 2011-09-09 13:02:00 Mem orial Vin Respitory Rate 2011-09-09 13:02:00 [facility] [place] Temperature Oral (F) 2011-09-09 13:02:00 97.5 F [facility] Diastolic (mm Hg) 2011-09-09 08:00:00 Mem orial Vin Heart Rate 2011-09-09 08:00:00 [facility] Temperature Oral (F) 2011-09-09 08:00:00 98.6 F [facility] Respitory Rate 2011-09-09 08:00:00 Memori al Vin Systolic (mm Hg) 2011-09-09 08:00:00 [facility] [place] Respitory Rate 2011-09-09 04:55:00 [facility] [place] Diastolic (mm Hg) 2011-09-09 04:55:00 [facility] [place] Systolic (mm Hg) 2011-09-09 04:55:00 [facility] rial Vin Heart Rate 2011-09-09 04:55:00 [facility] Temperature Oral (F) 2011-09-09 00:55:00 98.7 F [facility] Weight 2011-09-01 19:59:00 [facility] Height 2011-09-01 19:59:00 154.94 cm [facility] Height 2011-09-01 07:01:00 154.94 cm [facility] Weight 2011-09-01 07:01:00 [facility] Respitory Rate 2011-08-23 18:00:00 [facility] [place] Heart Rate 2011-08-23 18:00:00 [facility] Systolic (mm Hg) 2011-08-23 18:00:00 [facility] rial Vin Diastolic (mm Hg) 2011-08-23 18:00:00 [facility] [place] Temperature Oral (F) 2011-08-23 18:00:00 97.7 F [facility] Heart Rate 2011-08-23 14:24:00 [facility] Temperature Oral (F) 2011-08-23 14:24:00 98.2 F [facility] Diastolic (mm Hg) 2011-08-23 14:24:00 [facility] [place] Systolic (mm Hg) 2011-08-23 14:24:00 [facility] rial Vin Respitory Rate 2011-08-23 14:24:00 Memori al Vin Systolic (mm Hg) 2011-08-23 11:15:00 [facility]za [facility] [place] Diastolic (mm Hg) 2011-08-23 11:15:00 Mem orial Vin Temperature Oral (F) 2011-08-23 11:00:00 98.3 F [facility] Heart Rate 2011-08-23 11:00:00 [facility] Respitory Rate 2011-08-22 22:00:00 [facility] [place] Height 2011-08-20 09:12:00 154.94 cm [facility] Weight 2011-08-20 09:12:00 [facility] Height 2011-08-19 20:28:00 154.94 cm [facility] Weight 2011-08-19 20:28:00 [facility] Procedures Procedure Date / Time Performing Clinician Source Performed POC GLUCOSE 2021-06-18 17:00:00 Aurelio Schumacher spital HEPATITIS B SURFACE 2021-06-18 14:07:00 Kenneth [facility] ANTIGEN VANCOMYCIN LEVEL, RANDOM 2021-06-18 13:44:00 [facility] HC COMPLETE BLD COUNT 2021-06-18 13:44:00 [facility] W/AUTO DIFF BASIC METABOLIC PANEL 2021-06-18 11:27:00 [facility] ESTIMATED GFR 2021-06-18 11:27:00 Aurelio Schumacher Ho spital POC GLUCOSE 2021-06-18 08:07:00 Aurelio Schumacher [facility] HEMODIALYSIS 2021-06-18 06:16:53 Bill Cooper spital POC GLUCOSE 2021-06-18 01:26:00 Aurelio Schumacher [facility] sp[facility] POC GLUCOSE 2021-06-17 21:58:00 Aurelio Schumacher [facility] HEMODIALYSIS 2021-06-17 18:25:45 Bill Cooper spital POC GLUCOSE 2021-06-17 17:36:00 Aurelio Schumacher [facility] POC GLUCOSE 2021-06-17 13:51:00 Aurelio Schumacher Ho spital BASIC METABOLIC PANEL 2021-06-17 11:16:00 [facility] HC COMPLETE BLD COUNT 2021-06-17 11:16:00 [facility] W/AUTO DIFF ESTIMATED GFR 2021-06-17 11:16:00 [facility] POC GLUCOSE 2021-06-17 02:50:00 [facility] CONSULT TO OSTOMY CARE 2021-06-17 00:31:48 [facility] NURSE HC COMPLETE BLD COUNT 2021-06-16 23:31:00 [facility] W/AUTO DIFF BASIC METABOLIC PANEL 2021-06-16 23:31:00 [facility] ESTIMATED GFR 2021-06-16 23:31:00 [facility] POC GLUCOSE 2021-06-16 23:19:00 [facility] OR [place] < 1 HOUR 2021-06-16 22:49:00 [facility] 2021-06-16 22:36:00 Kaci Diazlie [facility] FUNGUS CULTURE 2021-06-16 22:36:00 [facility] 2021-06-16 22:36:00 [facility] 2021-06-16 22:36:00 [facility] AK AN ELECTIVE 2021-06-16 21:30:00 Jocelyne Zepeda [facility] SUPRAGLOTTIC AIRWAY AORTOGRAPHY, POSSIBLE 2021-06-16 21:17:00 Mando Diaz [facility] ANGIOPLASTY [facility] POC , URINE 2021-06-16 20:46:00 V[facility] POTASSIUM LEVEL 2021-06-16 17:28:00 Isabell Dickerson [facility] Larry Romero POC GLUCOSE 2021-06-16 11:39:00 [facility] BASIC METABOLIC PANEL 2021-06-16 10:08:00 [facility] 2021-06-16 10:08[facility]00 [facility] W/AUTO DIFF PROTHROMBIN TIME WITH INR 2021-06-16 10:08:00 [facility] PARTIAL THROMBOPLASTIN 2021-06-16 10:08:00 [facility] TIME (PTT) TYPE AND SCREEN 2021-06-16 10:08:00 [facility] ESTIMATED GFR 2021-06-16 10:08:00 [facility] POC GLUCOSE 2021-06-16 01:59:00 [facility] POC GLUCOSE 2021-06-15 22:58:00 [facility] COVID-19 QUALITATIVE 2021-06-15 19:29:00 Wander Elizabethmaria luisa [facility] RT-PCR POC GLUCOSE 2021-06-15 17:42:00 [facility] HEMODIALYSIS 2021-06-15 16:17:54 Delfino Akbar [facility] POC GLUCOSE 2021-06-15 15:41:00 [facility] POC GLUCOSE 2021-06-15 13:44:00 [facility] POC GLUCOSE 2021-06-15 13:00:00 [facility] ECG 12-LEAD 2021-06-15 12:48:21 Leni Barkertal HC COMPLETE BLD COUNT 2021-06-15 11:42:00 [facility] W/AUTO DIFF BASIC METABOLIC PANEL 2021-06-15 11:42:00 [facility] ESTIMATED GFR 2021-06-15 11:42:00 [facility] POC GLUCOSE 2021-06-15 01:31:00 [facility] US DUPLEX ARTERIAL LOWER 2021-06-14 21:55:33 [facility] EXTREMITY RIGHT POC GLUCOSE 2021-06-14 21:51:00 [facility] POC GLUCOSE 2021-06-14 17:36:00 [facility] POC GLUCOSE 2021-06-14 13:30:00 [facility] POC GLUCOSE 2021-06-14 13:29:00 [facility] HC COMPLETE BLD COUNT 2021-06-14 10:13:00 [facility] W/AUTO DIFF BASIC METABOLIC PANEL 2021-06-14 10:13:00 [facility] ESTIMATED GFR 2021-06-14 10:13:00 [facility] POC GLUCOSE 2021-06-14 02:45:00 [facility] POC GLUCOSE 2021-06-13 21:47:00 [facility] POC GLUCOSE 2021-06-13 20:46:00 [facility] CBC WITH PLATELET AND 2021-06-13 16:10:00 [facility] DIFFERENTIAL COMPREHENSIVE METABOLIC 2021-06-13 16:10:00 [facility] PANEL ESTIMATED GFR 2021-06-13 16:10:00 [facility] HEMODIALYSIS 2021-06-13 15:26:35 [facility] POC GLUCOSE 2021-06-13 14:30:00 [facility] VANCOMYCIN LEVEL, RANDOM 2021-06-13 10:59:00 Juwan Krueger [facility] POC GLUCOSE 2021-06-13 10:40:00 [facility] POC GLUCOSE 2021-06-13 02:28:00 [facility] POC GLUCOSE 2021-06-13 00:16:00 [facility] POC GLUCOSE 2021-06-12 23:31:00 [facility] POC GLUCOSE 2021-06-12 23:14:00 [facility] POC GLUCOSE 2021-06-12 18:19:00 [facility] POC GLUCOSE 2021-06-12 14:37:00 [facility] POC GLUCOSE 2021-06-12 14:01:00 [facility] POC GLUCOSE 2021-06-12 03:03:00 [facility] 2021-06-12 00:53:00 [facility] 2021-06-11 18:08:00 Holden Nagel [facility] POC GLUCOSE 2021-06-11 13:39:00 Nagel, Holden [facility] [place] HEMODIALYSIS 2021-06-11 12:38:38 Naomie Dickelmo [facility] POC GLUCOSE 2021-06-11 02:01:00 Nagel, Holden [facility] [place] POC GLUCOSE 2021-06-10 22:15:00 Nagel, Holden [facility] [place] POC GLUCOSE 2021-06-10 17:39:00 Nagel, Holden [facility] spital [place] POC GLUCOSE 2021-06-10 16:05:00 Nagel, Holdentrip Whyte spital [place] TISSUE CULTURE 2021-06-10 15:08:00 Pati, Juwan Whyte spital GRAM STAIN 2021-06-10 15:08:00 Pati, Juwancaron Whyte spital ANAEROBIC CULTURE 2021-06-10 15:04:00 Pati [facility] FUNGUS CULTURE 2021-06-10 15:04:00 Pati, Juwan Whyte spital AEROBIC CULTURE 2021-06-10 15:04:00 Pati, Juwan Whyte spital AFB CULTURE 2021-06-10 15:04:00 Pati, Juwan Whyte spital GRAM STAIN 2021-06-10 15:04:00 Pati, Juwan Whyte spital AFB STAIN 2021-06-10 15:04:00 Pati, Juwan Whyte spital [place] AN ELECTIVE 2021-06-10 14:26:00 Sofi Roach spital SUPRAGLOTTIC AIRWAY Marquita INCISION AND DRAINAGE, 2021-06-10 14:26:00 Ptai, [facility] LOWER EXTREMITY HC COMPLETE BLD COUNT 2021-06-10 10:20:00 , [facility] W/AUTO DIFF BASIC METABOLIC PANEL 2021-06-10 10:20:00 [facility] PROTHROMBIN TIME WITH INR 2021-06-10 10:20:00 [facility] PARTIAL THROMBOPLASTIN 2021-06-10 10:20:00 [facility] TIME (PTT) TYPE AND SCREEN 2021-06-10 [...] Whyte Ho spital [place] HEMODIALYSIS 2021-06-09 13:20:01 [facility] VANCOMYCIN LEVEL, RANDOM 2021-06-09 11:46:00 [facility] POC GLUCOSE 2021-06-09 02:06:00 Robe, Holden Ferrara spital [place] POC GLUCOSE 2021-06-08 22:23:00 Nagel, Holden Whyte Ho spital [place] POC GLUCOSE 2021-06-08 17:53:00 Nagel, Holden Ferrara spital Raímrez HC COMPLETE BLD COUNT 2021-06-08 16:06:00 [facility] W/AUTO DIFF POC GLUCOSE 2021-06-08 13:56:00 Holden Nagel spital [place] URINE CULTURE 2021-06-08 03:56:00 Holden Nagel spital [place] URINALYSIS SCREEN AND 2021-06-08 03:32:00 [facility] MICROSCOPY, WITH REFLEX TO CULTURE POC GLUCOSE 2021-06-08 01:15:00 Robe, Holden Ferrara spital [place] POC GLUCOSE 2021-06-07 22:07:00 Nagel, Holden Ferrara spital [place] POC GLUCOSE 2021-06-07 18:01:00 Holden Nagel Ho spital [place] BASIC METABOLIC PANEL 2021-06-07 14:15:00 [facility] ESTIMATED GFR 2021-06-07 14:15:00 Nagel Holden Whyte Ho spital [place] POC GLUCOSE 2021-06-07 13:56:00 Nagel, Holden [employer] spital [place] POC GLUCOSE 2021-06-07 02:54:00 Nagel, Holden Whyte Ho spital [place] CT LOWER EXTREMITY W 2021-06-07 01:22:59 [facility] CONTRAST RIGHT POC GLUCOSE 2021-06-06 23:50:00 NagelHolden rodriguez Ho spital [place] POC GLUCOSE 2021-06-06 17:31:00 Nagel, Holden Whyte Ho spital [place] HEMODIALYSIS 2021-06-06 15:05:52 [facility] POC GLUCOSE 2021-06-06 14:03:00 Holden Nagel Ho spital [place] HC COMPLETE BLD COUNT 2021-06-06 10:31:00 [facility] W/AUTO DIFF BASIC METABOLIC PANEL 2021-06-06 10:31:00 [facility] ESTIMATED GFR 2021-06-06 10:31:00 Holden Nagel Ho spital [place] POC GLUCOSE 2021-06-06 10:14:00 Holden Nagel Ho spital [place] POC GLUCOSE 2021-06-06 06:26:00 Holden Nagel Ho spital [place] POC GLUCOSE 2021-06-06 02:41:00 Holden Nagel Ho spital [place] POC GLUCOSE 2021-06-05 19:51:00 NagelHolden rodriguez Ho spital [place] BASIC METABOLIC PANEL 2021-06-05 18:06:00 [facility] HC COMPLETE BLD COUNT 2021-06-05 18:06:00 [facility] W/AUTO DIFF ESTIMATED GFR 2021-06-05 18:06:00 Holden Nagel Ho spital [place] POC GLUCOSE 2021-06-05 17:48:00 Holden Nagel Ho spital [place] ANAEROBIC CULTURE 2021-06-05 17:10:00 Pati, [facility] ANAEROBIC CULTURE 2021-06-05 16:59:00 Pati, [facility] FUNGUS CULTURE 2021-06-05 16:59:00 Pati, [facility] spital AEROBIC CULTURE 2021-06-05 16:59:00 Pati, [facility] spital AFB CULTURE 2021-06-05 16:59:00 Pati, [facility] spital FUNGUS SMEAR 2021-06-05 16:59:00 Pati, [facility] spital AFB STAIN 2021-06-05 16:59:00 Pati, [facility] spital AK AN ELECTIVE 2021-06-05 16:52:08 Herrera [facility] SUPRAGLOTTIC AIRWAY TISSUE CULTURE 2021-06-05 16:50:00 [facility] 2021-06-05 16:50:00 [facility] DEBRID[facility], LOWER 2021-06-05 16:16:00 Pati [facility] EXTREMITY POC GLUCOSE 2021-06-05 13:32:00 Holden Nagel [facility] TROPONIN T 2021-06-05 10:58:00 [facility] ospital ABO AND RH CONFIRMATION 2021-06-05 10:54:00 [facility] BASIC METABOLIC PANEL 2021-06-05 10:53:00 [facility] HC COMPLETE BLD COUNT 2021-06-05 10:53:00 [facility] W/AUTO DIFF ESTIMATED GFR 2021-06-05 10:53:[address] [facility] PROTHROMBIN TIME WITH INR 2021-06-05 10:52:00 [facility] PARTIAL THROMBOPLASTIN 2021-06-05 10:52:00 [facility] TIME (PTT) HCG QUALITATIVE, SERUM 2021-06-05 10:52:00 Myron Fernandes [facility] SCREEN POC GLUCOSE 2021-06-05 09:40:00 Dhaliwal, Carlos [facility] sp[facility] BLOOD CULTURE, AEROBIC & 2021-06-05 08:27:00 Carlos [facility] ANAEROBIC [facility]ip[facility] POC GLUCOSE 2021-06-05 07:42:00 Carlos Dhaliwal Ho spital [place] POC GLUCOSE 2021-06-05 06:57:00 Carlos Dhaliwal Ho spital [place] POC GLUCOSE 2021-06-05 06:10:00 NagelHolden Ho spital Ramírez BLOOD CULTURE, AEROBIC & 2021-06-05 04:31:00 Carlos [facility]hal[facility]wal [facility] ANAEROBIC [place] POC GLUCOSE 2021-06-05 04:04:00 Carlos Dhaliwal [facility] POC GLUCOSE 2021-06-05 03:51:00 Carlos Dhaliwal [facility] TYPE AND SCREEN 2021-06-05 03:40:00 Carlos Dhaliwal [facility] POC GLUCOSE 2021-06-05 03:05:00 Carlos Dhaliwal [facility] POC GLUCOSE 2021-06-05 02:23:00 Carlos Dhaliwal [facility] COVID-19 QUALITATIVE 2021-06-05 02:08:00 [facility] 2021-06-05 01:24:00 [facility] W[facility]AUTO DIFF PROTHROMBIN TIME WITH INR 2021-06-05 01:24:00 [facility] PARTIAL THROMBOPLASTIN 2021-06-05 01:24:00 hollySivan [facility] TIME (PTT) COMPREHENSIVE METABOLIC 2021-06-05 01:24:00 hollySivan [facility] PANEL CREATINE KINASE, TOTAL 2021-06-05 01:24[facility] [place] (CPK) B NATRIURETIC PEPTIDE 2021-06-05 01:24:00 [facility] TROPONIN T 2021-06-05 01:24:00 Char Viramontes [facility] ospital ESTIMATED GFR 2021-06-05 01:24:00 Sivan Stewart [facility] ECG ED PRELIMINARY 2021-06-05 00:31:28 Sivan Stewart [facility] INTERPRETATION ECG 12-LEAD 2021-06-05 00:19:17 Carlos Dhaliwal Ho marilyn [facility] POC GLUCOSE 2021-05-25 18:04:00 Awe, Marilu Arvin [facility] POC GLUCOSE 2021-05-25 14:00:00 Awe, Marilu Arvin [facility] CBC HEMOGRAM 2021-05-25 10:12:00 Awe, Marilu Arvin [facility] BASIC METABOLIC PANEL 2021-05-25 10:12:00 Awe, [facility] ESTIMATED GFR 2021-05-25 10:12:00 Awe, Marilu Arvin [facility] POC GLUCOSE 2021-05-25 02:49:00 Awe, Marilu Arvin [facility] POC GLUCOSE 2021-05-24 23:33:00 Awe, Marilu Arvin [facility] POC GLUCOSE 2021-05-24 17:56:00 Awe, Marilu Arvin [facility] POC GLUCOSE 2021-05-24 13:59:00 Awe, Marilu Arvin [facility] CBC HEMOGRAM 2021-05-24 10:12:00 Awe, Marilu Arvin [facility] BASIC METABOLIC PANEL 2021-05-24 10:12:00 [facility] 2021-05-24 10:12:00 Awe, Marilu Arvin [facility] POC GLUCOSE 2021-05-24 09:59:00 Awe, Marilu Arvin [facility] POC GLUCOSE 2021-05-24 02:26:00 Awe, [facility] 2021-05-24 00:03:00 Awe, [facility] TRANSFUSE RED BLOOD CELLS 2021-05-23 22:30:00 [facility] TRANSFUSE RED BLOOD CELLS 2021-05-23 21:30:00 [facility] POC GLUCOSE 2021-05-23 19:03:00 Awe, [facility] TYPE AND SCREEN 2021-05-23 14:38:00 [facility] HC COMPLETE BLD COUNT 2021-05-23 14:38:00 [facility] W/AUTO DIFF PREPARE RBC 2021-05-23 14:38:00 [facility] ospital PREPARE PLATELET PHERESIS 2021-05-23 14:38:00 [facility] POC GLUCOSE 2021-05-23 14:35:00 Awe, [facility] HEMODIALYSIS 2021-05-23 13:42:30 [facility] CBC HEMOGRAM 2021-05-23 12:31:00 Awe, [facility] BASIC METABOLIC PANEL 2021-05-23 12:31:00 Awe, [facility] ESTIMATED GFR 2021-05-23 12:31:00 Awe, [facility] POC GLUCOSE 2021-05-23 11:22:00 Awe, [facility] POC GLUCOSE 2021-05-23 03:30:00 [facility] 2021-05-22 23:20:00 Awe, [facility] POC GLUCOSE 2021-05-22 17:20:00 Awe, [facility] POC GLUCOSE 2021-05-22 13:27:00 Awe, [facility] BASIC METABOLIC PANEL 2021-05-22 12:31:[address] [facility] [place] Rahel MAGNESIUM LEVEL 2021-05-22 12:31:00 Nikki Haynes osgio Mcginnis CBC HEMOGRAM 2021-05-22 12:31:00 Nikki Haynes ospital Rahel ESTIMATED GFR 2021-05-22 12:31:00 Nikki Haynes ospital Rahel POC GLUCOSE 2021-05-22 10:54:00 Awe, [facility] POC GLUCOSE 2021-05-22 07:28:00 Awe, [facility] POC GLUCOSE 2021-05-22 01:11:00 Awe, [facility] HEPATITIS B SURFACE 2021-05-21 21:08:00 [facility] ANTIBODY HEMODIALYSIS 2021-05-21 20:57:40 [facility] POC GLUCOSE 2021-05-21 17:57:00 Awe, [facility] POC GLUCOSE 2021-05-21 13:55:00 Awe, [facility] POC GLUCOSE 2021-05-21 10:41:00 Kye Barber COVID-19 ANTI-SPIKE IGG 2021-05-21 07:43:00 Ishan [facility] ANTIBODY TITER Esa BASIC METABOLIC PANEL 2021-05-21 07:43:00 [facility] Ra[facility] MAGNESIUM LEVEL 2021-05-21 07:43:00 Nikki Haynes ospigabe Mcginnis CBC HEMOGRAM 2021-05-21 07:43:00 Nikki Haynes ospigabe Mcginnsi COVID-19 SEROLOGY PATIENT 2021-05-21 07:43:00 Clyde Olmstead [facility] SURVEILLANCE Esa ESTIMATED GFR 2021-05-21 07:43:00 Andre Sofia [place] LACTIC ACID LEVEL 2021-05-21 07:43:00 Leodan Stevenson [facility] POC GLUCOSE 2021-05-21 06:35:00 Kye Barber HC COMPLETE BLD COUNT 2021-05-21 02:49:00 [facility] W/AUTO DIFF BASIC METABOLIC PANEL 2021-05-21 02:49:00 [facility] LACTIC ACID LEVEL 2021-05-21 02:49:00 [facility] OSMOLALITY, SERUM 2021-05-21 02:49:00 [facility] BETA HYDROXYBUTYRATE 2021-05-21 02:49:00 [facility] PROCALCITONIN 2021-05-21 02:49:00 [facility] ESTIMATED GFR 2021-05-21 02:49:00 [facility] POC GLUCOSE 2021-05-21 02:34:00 Kye Barber spital HC COMPLETE BLD COUNT 2021-05-21 00:28:[address] [facility] [place] W/AUTO DIFF POC GLUCOSE 2021-05-20 23:57:00 Kye Barber spital BASIC METABOLIC PANEL 2021-05-20 23:20:00 Andre Sofia [facility] [place] LACTIC ACID LEVEL 2021-05-20 23:20:00 [facility] [place] ESTIMATED GFR 2021-05-20 23:20:00 Andre Sofia spital [place] VENOUS BLOOD GAS 2021-05-20 23:19:00 Andre Sofia ospital [place] POC GLUCOSE 2021-05-20 23:16:00 Kye Barber Ho spital POC GLUCOSE 2021-05-20 22:16:00 Kye Barber Ho spital POC GLUCOSE 2021-05-20 21:37:00 Key Barber Ho spital POC GLUCOSE 2021-05-20 20:29:00 Kye Barber Ho spital POC GLUCOSE 2021-05-20 20:26:00 Kye Barber spital POC GLUCOSE 2021-05-20 17:49:00 Kye Barber Ho spital POC GLUCOSE 2021-05-20 17:46:00 Kye Barber spital TRANSFUSE RED BLOOD CELLS 2021-05-20 17:21:00 [facility] [place] TRANSFUSE PLATELET 2021-05-20 15:52:00 Wander [facility] PHERESIS BASIC METABOLIC PANEL 2021-05-20 15:25:00 [facility] [place] ESTIMATED GFR 2021-05-20 15:25:00 Andre Sofia spital [place] POC GLUCOSE 2021-05-20 14:48:00 Kye Barber spital HEMODIALYSIS 2021-05-20 11:31:20 [facility] POC GLUCOSE 2021-05-20 10:44:00 Kye Barber spital HEPATITIS B SURFACE 2021-05-20 08:49:00 [facility] ANTIGEN HEPATITIS B SURFACE AB, 2021-05-20 08:49:00 [facility] QUANTITATIVE HC COMPLETE BLD COUNT 2021-05-20 08:25:00 [facility] W/AUTO DIFF BASIC METABOLIC PANEL 2021-05-20 08:25:00 [facility] MAGNESIUM LEVEL 2021-05-20 08:25:00 [facility] ospital PHOSPHORUS LEVEL 2021-05-20 08:25:00 [facility] PROTHROMBIN TIME WITH INR 2021-05-20 08:25:00 Leodan Stevenson [facility] ESTIMATED GFR 2021-05-20 08:25:00 Juwan Krueger spital HEMOGLOBIN A1C 2021-05-20 08:25:00 Nikki Haynes H ospital [place] POC GLUCOSE 2021-05-20 06:34:00 Kye Barber spital ARTERIAL BLOOD GAS 2021-05-20 04:36:00 [facility] 12-LEAD 2021-05-20 03:42:28 Graham [facility] spital PROTHROMBIN TIME WITH INR 2021-05-20 02:54:00 [facility] HC COMPLETE BLD COUNT 2021-05-20 02:54:00 [facility] BASIC METABOLIC PANEL 2021-05-20 02:54:00 [facility] LACTIC ACID LEVEL 2021-05-20 02:54:00 Graham [facility] VENOUS BLOOD GAS 2021-05-20 02:54:00 Graham [facility] Claudia ospital ESTIMATED GFR 2021-05-20 02:54:00 Graham [facility] Ho spital POC GLUCOSE 2021-05-20 02:54:00 Kye Barber spital XR CHEST 1 VW PORTABLE 2021-05-20 02:51:13 [facility] [place] [facility] HOUR 2021-05-20 01:30:15 Juwan Krueger spital TRANSFUSE RED BLOOD CELLS 2021-05-20 00:59:00 Juwan Krueger [facility] AK AN ELECTIVE 2021-05-20 00:53:01 Sukhjinder Medina spital SUPRAGLOTTIC AIRWAY [place] INCISION AND DRAINAGE, 2021-05-20 00:45:[address] [facility] [place] HEMATOMA HC COMPLETE BLD COUNT 2021-05-19 22:13:00 [facility] W/AUTO DIFF BASIC METABOLIC PANEL 2021-05-19 22:13:00 [facility] PROTHROMBIN TIME WITH INR 2021-05-19 22:13:00 [facility] PARTIAL THROMBOPLASTIN 2021-05-19 22:13:00 [facility] TIME (PTT) MAGNESIUM LEVEL 2021-05-19 22:13:00 [facility] ospital ESTIMATED GFR 2021-05-19 22:13:00 Juwan Krueger spital POC GLUCOSE 2021-05-19 22:00:00 Errol Luther [facility] SURGICAL PATHOLOGY REQUEST 2021-05-19 21:47:[address] [facility] POC GLUCOSE 2021-05-19 21:17:00 Juwan Krueger spital ACTIVATED CLOTTING TIME 2021-05-19 19:12:00 Kye Barber [facility] AK AN ELECTIVE 2021-05-19 18:11:04 Sukhjinder Medina spital SUPRAGLOTTIC AIRWAY [place] LOWER EXTREMITY 2021-05-19 17:59:00 Juwan Krueger spital ANGIOGRAM,POSSIBLE ANGIOPLASTY,POSSIBLE STENT XR CHEST 1 VW PORTABLE 2021-05-19 15:47:[address] [facility] [place] ESTIMATED GFR 2021-05-19 14:34:00 Juwan Krueger spital POC PANEL 2021-05-19 14:34:00 Juwan Krueger spital TYPE AND SCREEN 2021-05-19 14:05:00 Isabell Dickerson marilyn Romero PREPARE RBC 2021-05-19 14:05:00 [facility] PREPARE FRESH FROZEN 2021-05-19 14:05:00 [facility] PLASMA PREPARE PLATELET PHERESIS 2021-05-19 14:05:00 Char Viramontes [facility] BASIC METABOLIC PANEL 2021-05-19 14:00[facility] Romero PROTHROMBIN TIME WITH INR 2021-05-19 14:00:00 Jayla [facility] Larry Romero HC COMPLETE BLD COUNT 2021-05-19 14:00:00 [facility] W/AUTO DIFF Larry Romero ABO AND RH CONFIRMATION 2021-05-19 14:00:[address] [facility] [place] [place] ESTIMATED GFR 2021-05-19 14:00:00 Isabell Dickerson COVID-19 QUALITATIVE 2021-05-19 12:40:00 Juwan Krueger [facility] RT-PCR MEDICAL RELEASE/CLEARANCE 2021-05-13 06:01:00 Doctor Unassigned, [facility] FORMS [facility] US DUPLEX ARTERIAL LOWER 2021-05-12 15:21:31 [facility] EXTREMITY BILATERAL Emergency department visit 2013-04-15 05:00:00 [...] procedure) Therapeutic, prophylactic, 2013-04-15 05:00:00 [facility] or diagnostic injection (specify substance or drug); intravenous push, single or initial substance/drug [facility] EGD [facility] (esophagogastroduodenoscop y) gastric outlet reduction section Shahid Joseph n Tubal ligation [facility] 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 Plan of Care Planned Activity Planned Date Details Comments Source Future Scheduled 2021-07-22 COVID-19 VACCINE [facility] Test 13:11:04 (1) [code = COVID-19 VACCINE (1)] Future Scheduled 2021-07-22 Hepatitis C [facility] Test 13:11:04 screening (procedure) [code = 352185610] Future Scheduled 2021-07-22 [facility]ening for [facility] Test 13:11:04 malignant neoplasm of cervix (procedure) [code = 141689479] Future Scheduled 2021-07-22 INFLUENZA [facility]ACCINE [facility] 13:11:04 [code = INFLUENZA VACCINE] Encounters Start End Encounter Admission Attending Care Care Encounter Source Date/Time Date/Time Type Type Clinicians Facility Department ID 2021-07-22 Outpatient nullFlavo [facility] [id number] Memoria 00:10:30 r Medical 05 l [facility] 2021-07-22 Preadmit nullFlavo [id number] Memoria 00:10:30 r [facility] 68 [facility] 2021-07-22 Outpatient nullFlavo [facility] [id number] Memoria 00:10:30 r Medical 06 l [facility] 2021-08-20 2021-08-20 Outpatient [facility] [id number] [facility] 12:30:00 12:30:00 0302 Medica l [facility] 2021-07-08 2021-07-08 Office Ann, 1.2.840.1 [id number] Methodi 12:54:05 14:25:36 Visit Bessie 29791.1.[address] [place] 3.430.2.7 Hosp jo-ann .3.765224 l .8 2021-07-08 2021-07-08 Telephone Anthony, 1.2.840.1 [id number] Methodi 00:00:00 00:00:[address] 3.430.2.7 Hospit a .3.414143 l .8 2021-07-08 2021-07-08 Travel 1.2.840.1 1.2.780.281 7315 [id number] Methodi 00:00:00 00:00:[address] 3.430.2.7 0.2.7.3.698 Ho spita .3.783104 084.8 l .8 2021-07-03 2021-07-03 Telephone Ann, 1.2.840.1 [id number] [id number] Methodi 00:00:00 00:00:[address] [place] 3.430.2.7 Hosp jo-ann .3.803952 l .8 2021-06-24 2021-06-24 Outpatient Deshazo_T [facility] [id number] Devoted 05:31:00 05:31:00 0104 Medica l Group 2021-06-23 2021-06-23 Telephone Anthony, 1.2.840.1 [id number] [id number] Methodi 00:00:00 00:00:[address] 3.430.2.7 Hospit a .3.726747 l .8 2021-06-04 2021-06-18 Hospital Sivan Stewart 1.2.840.1 [id number] Methodi 18:20:00 18:13:00 Encounter Carlos Dhaliwal 96612.1.[address] [facility]enra 3.430.2.7 Hospita Shanda Mckenzie Kalen .3.384543 l Aurelio Schumacher .8 2021-06-16 2021-06-16 Anesthesia Yousif, 1.2.840.1 [id number] Methodi 23:59:59 23:59:59 Event Alesia Coelho 33728.1.[address] 3.430.2.7 Hospit a .3.856333 l .8 2021-06-16 2021-06-16 Surgery Diaz, 1.2.840.1 [id number] Methodi 13:30:00 17:45:[address] [facility] 3.430.2.7 Hosp jo-ann .3.239887 l .8 2021-06-16 2021-06-16 Anesthesia Jose Carlos, 1.2.840.1 [id number] Methodi 15:19:00 17:19:00 Event Sethlachelleayo 00901.1.1 309 s t V. 3.430.2.7 Hospit a .3.345770 l .8 2021-06-10 2021-06-10 Surgery PatiJuwan 1.2.840.1 [id number] [id number] Methodi 08:00:00 10:30:[address] 3.430.2.7 Hospit a .3.662300 l .8 2021-06-10 2021-06-10 Anesthesia Doc, 1.2.840.1 [id number] [id number] Methodi 08:26:00 09:40:00 Event Sofi 87229.1.[address] Marquita 3.430.2.7 Hosp jo-ann .3.923488 l .8 2021-06-09 2021-06-09 Prep for Robert, 1.2.840.1 [id number] Methodi 00:00:00 00:00:00 Surgery Gayle 49710.1.[address] 3.430.2.7 Hospit a .3.847963 l .8 2021-06-09 2021-06-09 Prep for Robert, 1.2.840.1 [id number] Methodi 00:00:00 00:00:00 Surgery Gayle 63266.1.[address] 3.430.2.7 Hospit a .3.741880 l .8 2021-06-05 2021-06-05 Anesthesia Frankie Chowdhury 1.2.840.1 [id number] Methodi 10:16:00 11:41:00 Event Chandler Silverman 96950.1.[address] 3.430.2.7 Hospit a .3.070651 l .8 2021-06-05 2021-06-05 Surgery Juwan Krueger 1.2.840.1 [id number] Methodi 09:30:00 11:05:[address] 3.430.2.7 Hospit a .3.501610 l .8 2021-06-03 2021-06-03 Prep for Anthony, 1.2.840.1 [id number] Methodi 00:00:00 00:00:00 Surgery Forrest 82036.1.[address] 3.430.2.7 Hospit a .3.743948 l .8 2021-06-03 2021-06-03 Telephone Adelita, 1.2.840.1 [id number] Methodi 00:00:00 00:00:00 Crysandria 72500.1.1 218 s t 3.430.2.7 Hospit a .3.023038 l .8 2021-05-28 2021-05-28 Outpatient Adams_R [facility] [id number] 021 Devoted 05:00:00 05:00:00 1208 Medica l Group 2021-05-27 2021-05-27 Patient Tam, 1.2.840.1 [id number] Methodi 00:00:00 00:00:00 Outreach Maria M 59351.1.[address] 3.430.2.7 Hospit a .3.464528 l .8 2021-05-27 2021-05-27 Travel 1.2.840.1 1.2.568.135 4766 [id number] Methodi 00:00:00 00:00:[address] 3.430.2.7 0.2.7.3.698 Ho spita .3.114631 084.8 l .8 2021-05-27 2021-05-27 Orders Ramana, 1.2.840.1 [id number] 2099 [id number] Methodi 00:00:00 00:00:00 Only Anila 48142.1.[address] 3.430.2.7 Hospit a .3.873698 l .8 2021-05-26 2021-05-26 Outpatient Adams_R [facility] G [id number] 021 Devoted 03:30:00 03:30:00 1206 Medica l Group 2021-05-26 2021-05-26 Telephone Anthony, 1.2.840.1 [id number] [id number] Methodi 00:00:00 00:00:[address] 3.430.2.7 Hospit a .3.912664 l .8 2021-05-19 2021-05-25 Juwan Mendez 1.2.840.1 [id number] 2099 [id number] Methodi 06:00:00 15:59:00 Kye Peres 65737.1.[address] Marilu Kochun 3.430.2.7 Hospita .3.344553 l .8 2021-05-21 2021-05-21 [facility]patient [facility] [id number] 021 Devoted 03:30:00 03:30:00 1201 Medica l Group 2021-05-19 2021-05-19 Anesthesia Adam, 1.2.840.1 [id number] Methodi 18:45:00 20:31:00 Event Sukhjinder 69610.1.[address] [place] 3.430.2.7 Hospit a .3.107110 l .8 2021-05-19 2021-05-19 Surgery Juwan Krueger 1.2.840.1 [id number] Methodi 18:50:00 19:55:[address] 3.430.2.7 Hospit a .3.768755 l .8 2021-05-19 2021-05-19 Anesthesia Sukhjinder Medina 1.2.840.1 [id number] Methodi 12:00:00 15:14:00 Event Hanane Ledezma 46718.1.[address] 3.430.2.7 Hospit a .3.591184 l .8 2021-05-19 2021-05-19 Surgery Juwan Krueger 1.2.840.1 [id number] Methodi 12:05:00 14:45:[address] 3.430.2.7 Hospit a .3.241612 l .8 2021-05-19 2021-05-19 Travel 1.2.840.1 1.2.234.673 2423 [id number] Methodi 00:00:00 00:00:[address] 3.430.2.7 0.2.7.3.698 Ho spita .3.872074 084.8 l .8 2021-05-14 2021-05-14 Telephone Corin 1.2.840.1 [id number] Methodi 00:00:00 00:00:[address] 3.430.2.7 Hospit a .3.535175 l .8 2021-05-14 2021-05-14 Prep for Anthony, 1.2.840.1 [id number] Methodi 00:00:00 00:00:00 Surgery Forrest 71986.1.[address] 3.430.2.7 Hospit a .3.030188 l .8 2021-05-13 2021-05-13 Orders Doctor JOANNA 1.2.840.114 [id number] Univers 00:00:00 00:00:00 Only Unassigned, MAGDALENO 350.1.13.10 ity of [place] [facility] 4.2.7.2.686 Baljinder as [phone] [address] 2021-05-12 2021-05-12 Office PatiJuwan 1.2.840.1 [id number] Methodi 09:02:46 09:32:[address] 3.430.2.7 Hospit a .3.352253 l .8 2021-05-12 2021-05-12 Telephone Anthony, 1.2.840.1 [id number] 2099 [id number] Methodi 00:00:00 00:00:[address] 3.430.2.7 Hospit a .3.187222 l .8 2021-05-12 2021-05-12 Travel 1.2.840.1 1.2.011.074 3095 [id number] Methodi 00:00:00 00:00:[address] 3.430.2.7 0.2.7.3.698 Ho spita .3.792410 084.8 l .8 2021-05-08 2021-05-08 Orders Anthony, 1.2.840.1 [id number] Methodi 00:00:00 00:00:00 Only Forrest 95859.1.[address] 3.430.2.7 Hospit a .3.491442 l .8 2021-05-08 2021-05-08 Telephone Boles, 1.2.840.1 [id number] Methodi 00:00:00 00:00:[address] 3.430.2.7 Hospit a .3.652400 l .8 2021-05-05 2021-05-05 Office Juwan Krueger 1.2.840.1 [id number] [id number] Methodi 14:18:48 15:41:[address] 3.430.2.7 Hospit a .3.347807 l .8 2021-05-05 2021-05-05 Travel 1.2.840.1 1.2.298.676 4261 503652 Methodi 00:00:00 00:00:[address] 3.430.2.7 0.2.7.3.698 Ho spita .3.986541 084.8 l .8 2021-05-01 2021-05-01 Peg Diaz, 1.2.840.1 [id number] 2100 [id number] Methodi 00:00:00 00:00:[address] [facility] 3.430.2.7 Hosp jo-ann .3.326752 l .8 2021-03-21 2021-03-21 Outpatient DMG DREWG [id number] 021 Devoted 08:01:00 08:01:00 1001 Medica l Group 2021-01-21 2021-01-29 Inpatient [facility] [id number] 15:50:[facility] 20:14:[address] 2021-01-21 2021-01-29 Inpatient U AYDEE, [facility] CAR 7512 [facility] 10:50:00 15:14:00 AKUA 2021-01-24 2021-01-24 Outpatient DMG DREWG [id number] 021 Devoted 08:00:00 08:00:00 0806 Medica l Group 2021-01-03 2021-01-03 Office DOMINIQUE Diane 1.2.840.114 [id number] [place] 07:44:43 09:30:54 Visit Alexandr ALTMAN 350.1.13.[address] [facility] MEDICAL 9.2.7.2.686 [facility] [id number] 2021-01-03 2021-01-03 Office DOMINIQUE Diane 1.2.840.114 [id number] 07:44:43 09:30:54 Visit Alexandr ALTMAN 350.1.13.58 MEDICAL 9.2.7.2.686 [facility] [id number] 2020-12-24 2020-12-25 Outpatient nullFlavo Digestive [id number] [id number] Memoria 15:32:00 04:59:00 r Disease 11 [facility] 2020-12-24 2020-12-24 Out[facility] 10:32:00 23:59:00 HUI 2020-10-27 2020-10-27 Letter Lamin [facility] 1.2.840.114 [id number] 00:00:00 00:00:00 (Out) Oz Lehman 350.1.13.10 [place] 4.2.7.2.686 Professio [id number] nal 059 [facility] 2020-10-24 2020-10-24 Orders Doctor JOANNA 1.2.840.114 [id number] 00:00:00 00:00:00 Only Unassigned, MAGDALENO 350.1.13.10 [place] [facility] 4.2.7.2.686 [id number] 2020-09-24 2020-09-24 Refill Carlos [facility] 1.2.840.114 [id number] 00:00:00 00:00:00 Jose Luis Lehman 350.1.13.10 [place] 4.2.7.2.686 Professio [id number] nal 220 [facility] 2020-09-09 2020-09-09 Patient Daniel [facility] 1.2.840.114 [id number] 00:00:00 00:00:00 Outreach Earl SMITH 350.1.13.10 Manuel [facility] 4.2.7.2.686 ANNABEL [id number] 2020-07-23 2020-07-23 Office Black [facility] 1.2.571.183 0245 [id number] 13:31:20 14:37:36 Visit Deja PRIMARY [id number] A [facility] [id number] PAVHARISHON [id number] 2020-06-27 2020-06-27 Office Lamin [facility] [id number] Univers 10:05:43 11:00:00 Visit Oz LEHMAN [id number] itcaron [facility] [id number] Amisha lombardo DAVIS [id number] Nm dical NAL 059 [facility] 2020-06-27 2020-06-27 Outpatient R LAMIN [facility] [id number] Univers 09:30:00 11:00:00 SENDIL ity [facility] 2020-01-25 2020-01-31 Inpatient 1 ChivoJose husseinRei [facility] [id number] 21:31:00 18:15:00 Rei [facility] 2016-07-24 2016-07-30 Inpatient [facility] [id number] Memoria 02:04:00 16:20:[address] 2016-06-10 2016-06-15 Inpatient [facility] [id number] Memoria 16:02:00 18:23:[address] 2014-06-26 2014-06-26 EC [facility] [id number] Memoria 05:25:00 15:14:00 Emergency r [place] [facility] 2013-04-14 2013-04-15 Emergency nullFlavo [id number] Memoria 21:04:00 01:45:[address] 2012-03-14 2012-03-14 Emergency nullFlavo [id number] Mem[facility] 16:32:00 22:39:00 r [facility] 04 [facility] 2011-11-28 2011-11-30 OU nullFlavo [facility] [id number] Memoria 12:16:00 20:40:00 r [facility] 03 [facility] 2011-09-18 2011-09-18 Emergency nullFlavo [facility] [id number] Memoria 08:23:00 13:34:00 r Medical 02 [facility] 2011-09-01 2011-09-09 Inpatient nullFlavo [facility] [id number] Memoria 01:40:00 15:00:00 [facility] 2011-08-19 2011-08-23 Inpatient nullFlavo [facility] [id number] Memoria 14:25:00 15:28:00 [facility] Results Test Description Test Time Test Comments Results Result Comments Source AFB culture 2021-07-22 18:13:19 Test Item Value Reference Range Interpretation Comme nts AFB culture isolate No growth after 6 weeks of Specimen InformationSpecimen (test code = 543-9) incubation. Source: DrainageSpecimen Site: Thigh: infected wound right [id number] 18:15:13 Test Item Value Reference Range Interpretation Comments Fungus culture No growth Specimen isolate (test after 4 weeks InformationSp ecimen code = 1441) of Source: TissueS pecimen incubation. [facility] [id number] 14:31:13 Test Item Value Reference Range Interpretation Comments Anaerobic No anaerobic Specimen culture isolate organisms InformationS pecimen (test code = isolated. Source: TissueS pecimen 552) [facility] [id number] 16:51:58 Test Item Value Reference Range Interpretation Comments Gram stain No WBC's or Specimen isolate (test organisms seen. Information Specimen code = 1469) Source: TissueS pecimen [facility] [id number] 16:51:58 Test Item Value Reference Range Interpretation Comments Aerobic culture No growth Specimen isolate (test after 3 days. InformationSp ecimen code = 498) Source: TissueS pecimen [facility] [id number] 16:51:58 Test Item Value Reference Range Interpretation Comments Fungus smear No fungi Specimen (test code = observed. InformationSpec imen Source: 1443) TissueSpecimen Site: [facility] pfvzrut2656-63-19 17:00:57 Test Item Value Reference Range Interpretation Comments POC glucose (test code 79 mg/dL 65-99 Opera tor Name: Eboni = 58018-9) AmiDevice ID: [id number] [facility] , [id number] 20:46:00 Test Item Value Reference Range Interpretation Comments test urine, POC (test Negative code = 6209352) Internal QC (test code = 257) QC acceptable [facility] 12 [id number] 17:27:33 Test Item Value Reference Range Interpretation Comments Ventricular rate (test code = 253) Atrial rate (test code = 255) AK interval (test code = 266) QRSD interval [...] 18:19,-No significant change was found- [facility] and [id number] 11:06:00 Test Item Value Reference Range Interpretation Comments ABO grouping (test code = 883-9) B Rh type (test code = 28311-4) POS Antibody screen (gel) (test code = NEG 890-4) [facility]lake[facility] yssqenk5836-24-45 20:18:46 Test Item Value Reference Range Interpretation Comments Tissue culture No growth Specimen isolate (test after 3 days. InformationSp ecimen code = 44470-5) Source: Tiss ueSpecimen Site: Thigh: in fected right thigh wou nd [facility]lakeAFB [id number] 20:24:42 Test Item Value Reference Range Interpretation Comments AFB stain No acid fast Specimen (test code = bacilli (AFB) InformationSpe cimen 676-7) seen. Source: Drainag eSpecimen Site: Thigh: in fected wound right th igh [facility]lake[facility] yruwuop9363-95-93 09:49:57 Test Item Value Reference Range Interpretation Comments Urine culture No growth Specimen isolate (test after 24 InformationSpe cimen code = 46516-3) hours Source: Urin eSpecimen Site: Clean cat ch [facility]lake[facility] and Rh aizkprzezjoy9415-56-54 12:52:00 Test Item Value Reference Range Interpretation Comments ABO grouping (test code = 883-9) B Rh type (test code = 17288-3) POS [facility]lakePrepar RBC, 1 Wyfmy1865-72-01 22:22:00 Test Item Value Reference Range Interpretation Comments Product name (test code Red Blood Cells -1, = 25) Leukored Unit number (test code = [id number]) Product code (test code B1087A12 = 3092) Dispense status (test Transfused code = 24) Blood expiration date (test code = 302) Blood type code (test code = 308) Blood type (test code = B POSITIVE 1314) Compatibility (test code Compatible = 6400) [facility] hogclwe1851-97-07 20:10:46 Test Item Value Reference Range Interpretation Comments Case number (test code = [id number]) Surgical pathology See link below for report (test code = PDF Lab Report 4362) Result status (test code This is Final Report = [id number]) for [id number] [facility]lake[facility]ma[facility] pheresis, 1 Amzhq5393-09-54 15:35:00 Test Item Value Reference Range Interpretation Comments Product name (test code Bogdan Fraire LR, Path = 25) Red cont3 Unit number (test code = [id number]) Product code (test code M9729K67 = 3092) Dispense status (test Transfused code = 24) Blood expiration date (test code = 302) Blood type code (test code = 308) Blood type (test code = O POSITIVE 1314) Compatibility (test code Not required = 6400) [facility]lakeActivated clotting [id number] 12:13:24 Test Item Value Reference Range Interpretation Comments Activated clotting time See_Comment H Oper ator Name: (test code = 5298) Bryn Morales ID: [id number] [Automated mess age] The system [employer] generated this result transmitted ref erence range: 96 - 152 sec. The reference r leo was not used to interpret this result as normal/abnor mal. Lab Interpretation (test Abnormal code = 96994-0) [facility]lakePOC [id number] 14:37:48 Test Item Value Reference Range Interpretation Comments POC sodium (test code = 138 mmol/L 390-932 9574-0) POC potassium (test 5.5 mmol/L 3.5-5.0 H code = 6298-4) POC glucose (test code 295 mg/dL 65-99 H = 2339-0) POC creatinine (test 5.3 mg/dl 0.5-0.9 H Operato r Name: Pat code = 34822-9) Viridiana ID: [id number] POC hemoglobin (test 18.4 g/dL 12.0-16.0 H code = 718-7) POC hematocrit (test 54 % 37-47 H code = 4544-3) Lab Interpretation Abnormal (test code = 33776-8) [place] [id number] 08:17:00 Test Item Value Reference Range Interpretation Comments Glucose Lvl (test code = Glucose Lvl) 94 70-99 [place] [address]-08-11 08:17:00 Test Item Value Reference Range Interpretation Comments BUN (test code = BUN) 27 7-22 [place] 569181-08-11 08:17:00 Test Item Value Reference Range Interpretation Comments Creatinine Lvl (test code = Creatinine 4.95 0.50-1.40 Lvl) [place] 569181-08-11 08:17:00 Test Item Value Reference Range Interpretation Comments Sodium Lvl (test code = Sodium Lvl) 136 135-145 [place] 569181-08-11 08:17:00 Test Item Value Reference Range Interpretation Comments Potassium Lvl (test code = Potassium 3.9 3.5-5.1 Lvl) [place] 569181-08-11 08:17:00 Test Item Value Reference Range Interpretation Comments Chloride Lvl (test code = Chloride Lvl) 103 95-109 [place] 569181-08-11 08:17:00 Test Item Value Reference Range Interpretation Comments CO2 (test code = CO2) 30 24-32 [place] 569181-08-11 08:17:00 Test Item Value Reference Range Interpretation Comments AGAP (test code = AGAP) 6.9 10.0-20.0 [place] 569181-08-11 08:17:00 Test Item Value Reference Range Interpretation Comments Calcium Lvl (test code = Calcium Lvl) 8.5 8.5-10.5 [facility]2021-08-11 08:17:00 Test Item Value Reference Range Interpretation Comments eGFR (test code = eGFR) 10 [facility]2021-08-11 08:17:00 Test Item Value Reference Range Interpretation Comments Phosphorus (test code = Phosphorus) 3.0 2.5-4.5 [facility]2021-08-11 08:17:00 Test Item Value Reference Range Interpretation Comments Magnesium Lvl (test code = Magnesium 2.4 1.8-2.4 Lvl) [facility] HospitalKrclafhLWNOAFYLHX9198-80-72 08:17:00 Test Item Value Reference Range Interpretation Comments WBC (test code = WBC) 2.3 3.7-10.4 [place] 658791-08-11 08:17:00 Test Item Value Reference Range Interpretation Comments RBC (test code = RBC) 2.65 4.20-5.40 [facility] HospitalJbbhesxBRDOOLPXME0128-52-13 08:17:00 Test Item Value Reference Range Interpretation Comments Hgb (test code = Hgb) 7.9 12.0-16.0 [place] 658791-08-11 08:17:00 Test Item Value Reference Range Interpretation Comments Hct (test code = Hct) 24.0 36.0-48.0 [facility] HospitalNfznjclAKZAVJZLEH5856-34-33 08:17:00 Test Item Value Reference Range Interpretation Comments MCV (test code = MCV) 90.6 80.0-98.0 [facility] HospitalFtvzwxbSLWUCEDDPL1971-07-12 08:17:00 Test Item Value Reference Range Interpretation Comments MCH (test code = MCH) 29.7 pg 27.0-31.0 [place] 658791-08-11 08:17:00 Test Item Value Reference Range Interpretation Comments MCHC (test code = MCHC) 32.7 32.0-36.0 [place] 658791-08-11 08:17:00 Test Item Value Reference Range Interpretation Comments RDW (test code = RDW) 19.1 11.5-14.5 [place] 658791-08-11 08:17:00 Test Item Value Reference Range Interpretation Comments Platelet (test code = Platelet) 71 133-450 [facility] HospitalVidokbrQDKFCMMRIR6916-06-22 08:17:00 Test Item Value Reference Range Interpretation Comments MPV (test code = MPV) 9.9 7.4-10.4 [place] 658791-08-11 08:17:00 Test Item Value Reference Range Interpretation Comments Segs (test code = Segs) 56.1 45.0-75.0 [place] 658791-08-11 08:17:00 Test Item Value Reference Range Interpretation Comments Lymphocytes (test code = Lymphocytes) 28.9 20.0-40.0 [place] 658791-08-11 08:17:00 Test Item Value Reference Range Interpretation Comments Monocytes (test code = Monocytes) 8.1 2.0-12.0 [place] 658791-08-11 08:17:00 Test Item Value Reference Range Interpretation Comments Eosinophils (test code = 5.9 See_Comment [A utomated message] The Eosinophils) system which ge nerated this result tra nsmitted reference range : <=4.0. The reference r leo was not used to int erpret this result as normal/abnormal . [place] 658791-08-11 08:17:00 Test Item Value Reference Range Interpretation Comments Basophils (test code = 1.0 See_Comment [Aut omated message] The Basophils) system which ge nerated this result tra nsmitted reference range : <=1.0. The reference r leo was not used to int erpret this result as normal/abnormal . [facility] HospitalDmpffkaGVPJVFJBMI3936-24-34 08:17:00 Test Item Value Reference Range Interpretation Comments Neutrophils # (test code = Neutrophils 1.3 1.5-8.1 #) [place] 658791-08-11 08:17:00 Test Item Value Reference Range Interpretation Comments Lymphocytes # (test code = Lymphocytes 0.7 1.0-5.5 #) [place] 658791-08-11 08:17:00 Test Item Value Reference Range Interpretation Comments Monocytes # (test code 0.2 See_Comment [Aut omated message] The = Monocytes #) system which generated this result tra nsmitted reference range : <=0.8. The reference r leo was not used to int erpret this result as normal/abnormal . [place] 658791-08-11 08:17:00 Test Item Value Reference Range Interpretation Comments Eosinophils # (test code 0.1 See_Comment [A utomated message] The = Eosinophils #) system whic h generated this result tra nsmitted reference range : <=0.5. The reference r leo was not used to int erpret this result as normal/abnormal . [facility]2021-08-10 09:30:00 Test Item Value Reference Range Interpretation Comments Glucose Lvl (test code = Glucose Lvl) 61 70-99 [place] 569181-08-10 09:30:00 Test Item Value Reference Range Interpretation Comments BUN (test code = BUN) 13 7-22 [place] 569181-08-10 09:30:00 Test Item Value Reference Range Interpretation Comments Creatinine Lvl (test code = Creatinine 3.71 0.50-1.40 Lvl) [place] 569181-08-10 09:30:00 Test Item Value Reference Range Interpretation Comments Sodium Lvl (test code = Sodium Lvl) 136 135-145 [place] 569181-08-10 09:30:00 Test Item Value Reference Range Interpretation Comments Potassium Lvl (test code = Potassium 4.3 3.5-5.1 Lvl) [place] 569181-08-10 09:30:00 Test Item Value Reference Range Interpretation Comments Chloride Lvl (test code = Chloride Lvl) 103 95-109 [place] 569181-08-10 09:30:00 Test Item Value Reference Range Interpretation Comments CO2 (test code = CO2) 27 24-32 [place] 569181-08-10 09:30:00 Test Item Value Reference Range Interpretation Comments Calcium Lvl (test code = Calcium Lvl) 7.9 8.5-10.5 [place] 569181-08-10 09:30:00 Test Item Value Reference Range Interpretation Comments AGAP (test code = AGAP) 10.3 10.0-20.0 [place] 569181-08-10 09:30:00 Test Item Value Reference Range Interpretation Comments eGFR (test code = eGFR) 15 [place] 569181-08-10 09:30:00 Test Item Value Reference Range Interpretation Comments Magnesium Lvl (test code = Magnesium 2.3 1.8-2.4 Lvl) [place] 569181-08-10 09:30:00 Test Item Value Reference Range Interpretation Comments Phosphorus (test code = Phosphorus) 3.1 2.5-4.5 [facility] HospitalPqmouauTAOXIKCDJH4399-60-23 09:30:00 Test Item Value Reference Range Interpretation Comments Segs (test code = Segs) 61.5 45.0-75.0 [facility] HospitalHsaounqOFFFEZVBAS5360-15-57 09:30:00 Test Item Value Reference Range Interpretation Comments Lymphocytes (test code = Lymphocytes) 24.6 20.0-40.0 [place] 658791-08-10 09:30:00 Test Item Value Reference Range Interpretation Comments Monocytes (test code = Monocytes) 7.4 2.0-12.0 [facility] HospitalZompbvwNZYZVVGFAO6502-34-61 09:30:00 Test Item Value Reference Range Interpretation Comments Eosinophils (test code = 5.5 See_Comment [A utomated message] The Eosinophils) system which ge nerated this result tra nsmitted reference range : <=4.0. The reference r leo was not used to int erpret this result as normal/abnormal . [facility] HospitalSrienreMRCPVTQNZP9795-98-49 09:30:00 Test Item Value Reference Range Interpretation Comments Basophils (test code = 1.0 See_Comment [Aut omated message] The Basophils) system which ge nerated this result tra nsmitted reference range : <=1.0. The reference r leo was not used to int erpret this result as normal/abnormal . [facility] HospitalBksykfnCTLPQMAVGN7080-71-47 09:30:00 Test Item Value Reference Range Interpretation Comments Neutrophils # (test code = Neutrophils 1.6 1.5-8.1 #) [facility] HospitalYuihjrpGDMZYUQTFA1884-95-93 09:30:00 Test Item Value Reference Range Interpretation Comments Lymphocytes # (test code = Lymphocytes 0.6 1.0-5.5 #) [facility] HospitalZlpdrsrVFTGFECNUR8221-46-01 09:30:00 Test Item Value Reference Range Interpretation Comments Monocytes # (test code 0.2 See_Comment [Aut omated message] The = Monocytes #) system which generated this result tra nsmitted reference range : <=0.8. The reference r leo was not used to int erpret this result as normal/abnormal . [facility] HospitalQttyiumCXBJDAWZOC4236-63-41 09:30:00 Test Item Value Reference Range Interpretation Comments Eosinophils # (test code 0.1 See_Comment [A utomated message] The = Eosinophils #) system [employer] generated this result tra nsmitted reference range : <=0.5. The reference r leo was not used to int erpret this result as normal/abnormal . [facility] HospitalNbpnebeWYOOXSFRQV8586-35-63 09:30:00 Test Item Value Reference Range Interpretation [...] studies, if clinically indicated, are recommended. CPT: 73955 [facility] HospitalXvwytucLXTVJZZAUK4248-36-65 09:30:00 Test Item Value Reference Range Interpretation Comments WBC (test code = WBC) 2.5 3.7-10.4 [place] 8[address]-08-10 09:30:00 Test Item Value Reference Range Interpretation Comments RBC (test code = RBC) 2.68 4.20-5.40 [place] 658791-08-10 09:30:00 Test Item Value Reference Range Interpretation Comments Hgb (test code = Hgb) 8.2 12.0-16.0 [place] 824[address]-08-10 09:30:00 Test Item Value Reference Range Interpretation Comments Hct (test code = Hct) 24.3 36.0-48.0 [place] 8[address]-08-10 09:30:00 Test Item Value Reference Range Interpretation Comments MCV (test code = MCV) 90.9 80.0-98.0 [place] 8[address]-08-10 09:30:00 Test Item Value Reference Range Interpretation Comments MCH (test code = MCH) 30.5 pg 27.0-31.0 [place] [address]-08-10 09:30:00 Test Item Value Reference Range Interpretation Comments MCHC (test code = MCHC) 33.6 32.0-36.0 [place] 8[address]-08-10 09:30:00 Test Item Value Reference Range Interpretation Comments RDW (test code = RDW) 19.4 11.5-14.5 [facility] HospitalAjhovdxEVQGXNBMBC4734-09-78 09:30:00 Test Item Value Reference Range Interpretation Comments Platelet (test code = Platelet) 70 133-450 [facility] HospitalEhdoihgOYIIRXILEB2818-06-87 09:30:00 Test Item Value Reference Range Interpretation Comments MPV (test code = MPV) 10.7 7.4-10.4 [place] 569181-08-09 05:10:00 Test Item Value Reference Range Interpretation Comments Glucose Lvl (test code = Glucose Lvl) 69 70-99 [facility]2021-08-09 05:10:00 Test Item Value Reference Range Interpretation Comments BUN (test code = BUN) 29 7-22 [facility]2021-08-09 05:10:00 Test Item Value Reference Range Interpretation Comments Creatinine Lvl (test code = Creatinine 5.14 0.50-1.40 Lvl) [facility]2021-08-09 05:10:00 Test Item Value Reference Range Interpretation Comments Sodium Lvl (test code = Sodium Lvl) 134 135-145 [facility]2021-08-09 05:10:00 Test Item Value Reference Range Interpretation Comments Potassium Lvl (test code = Potassium 5.1 3.5-5.1 Lvl) [facility]2021-08-09 05:10:00 Test Item Value Reference Range Interpretation Comments Chloride Lvl (test code = Chloride Lvl) 98 95-109 [facility]2021-08-09 05:10:00 Test Item Value Reference Range Interpretation Comments CO2 (test code = CO2) 29 24-32 [place] 569181-08-09 05:10:00 Test Item Value Reference Range Interpretation Comments Calcium Lvl (test code = Calcium Lvl) 7.6 8.5-10.5 [facility]2021-08-09 05:10:00 Test Item Value Reference Range Interpretation Comments AGAP (test code = AGAP) 12.1 10.0-20.0 [place] 569181-08-09 05:10:00 Test Item Value Reference Range Interpretation Comments eGFR (test code = eGFR) 10 [place] 569181-08-09 05:10:00 Test Item Value Reference Range Interpretation Comments Magnesium Lvl (test code = Magnesium 2.3 1.8-2.4 Lvl) [facility]2021-08-09 05:10:00 Test Item Value Reference Range Interpretation Comments Phosphorus (test code = Phosphorus) 5.0 2.5-4.5 [facility] HospitalFpfotmaSVHJYTBGHL7927-32-50 05:10:00 Test Item Value Reference Range Interpretation Comments WBC (test code = WBC) 2.7 3.7-10.4 [facility] HospitalCxqolrgEFJGYGXRTK7194-29-84 05:10:00 Test Item Value Reference Range Interpretation Comments RBC (test code = RBC) 2.80 4.20-5.40 [place] 658791-08-09 05:10:00 Test Item Value Reference Range Interpretation Comments Hgb (test code = Hgb) 8.5 12.0-16.0 [place] 658791-08-09 05:10:00 Test Item Value Reference Range Interpretation Comments Hct (test code = Hct) 25.7 36.0-48.0 [facility] HospitalXoisujuQRQYHGEKRF5959-87-95 05:10:00 Test Item Value Reference Range Interpretation Comments MCV (test code = MCV) 91.7 80.0-98.0 [place] 658791-08-09 05:10:00 Test Item Value Reference Range Interpretation Comments MCH (test code = MCH) 30.4 pg 27.0-31.0 [facility] HospitalEejpcfwEKPONJQOWR4644-58-83 05:10:00 Test Item Value Reference Range Interpretation Comments MCHC (test code = MCHC) 33.1 32.0-36.0 [facility] HospitalCmbdxxiNEAHWSLAIJ4747-34-76 05:10:00 Test Item Value Reference Range Interpretation Comments RDW (test code = RDW) 19.2 11.5-14.5 [place] 658791-08-09 05:10:00 Test Item Value Reference Range Interpretation Comments Platelet (test code = Platelet) 72 133-450 [facility] HospitalRntdoovZXYVFFBBAN0127-38-08 05:10:00 Test Item Value Reference Range Interpretation Comments MPV (test code = MPV) 9.9 7.4-10.4 [place] 658791-08-09 05:10:00 Test Item Value Reference Range Interpretation Comments Segs (test code = Segs) 72.6 45.0-75.0 [facility] HospitalAudaylmJIWDZYSHXC3940-30-93 05:10:00 Test Item Value Reference Range Interpretation Comments Lymphocytes (test code = Lymphocytes) 15.9 20.0-40.0 [place] 658791-08-09 05:10:00 Test Item Value Reference Range Interpretation Comments Monocytes (test code = Monocytes) 7.3 2.0-12.0 [facility] HospitalNlckzsvSIISQICOBZ7113-97-84 05:10:00 Test Item Value Reference Range Interpretation Comments Eosinophils (test code = 3.4 See_Comment [A utomated message] The Eosinophils) system which ge nerated this result tra nsmitted reference range : <=4.0. The reference r leo was not used to int erpret this result as normal/abnormal . [place] 658791-08-09 05:10:00 Test Item Value Reference Range Interpretation Comments Basophils (test code = 0.8 See_Comment [Aut omated message] The Basophils) system which ge nerated this result tra nsmitted reference range : <=1.0. The reference r leo was not used to int erpret this result as normal/abnormal . [facility] HospitalTvvegxlFZWBKGTZIH7879-07-19 05:10:00 Test Item Value Reference Range Interpretation Comments Neutrophils # (test code = Neutrophils 1.9 1.5-8.1 #) [facility] HospitalSkklfgbUYPKFSZPFP5644-38-06 05:10:00 Test Item Value Reference Range Interpretation Comments Lymphocytes # (test code = Lymphocytes 0.4 1.0-5.5 #) [facility] HospitalJbudnsoMECSFDFNUW0480-38-54 05:10:00 Test Item Value Reference Range Interpretation Comments Monocytes # (test code 0.2 See_Comment [Aut omated message] The = Monocytes #) system which generated this result tra nsmitted reference range : <=0.8. The reference r leo was not used to int erpret this result as normal/abnormal . [facility] HospitalRfjdivxFKBZPTIZHE4600-96-87 05:10:00 Test Item Value Reference Range Interpretation Comments Eosinophils # (test code 0.1 See_Comment [A utomated message] The = Eosinophils #) system whic h generated this result tra nsmitted reference range : <=0.5. The reference r leo was not used to int erpret this result as normal/abnormal . [facility]2021-08-09 05:10:00 Test Item Value Reference Range Interpretation Comments Ca Ion WB (test code = Ca Ion WB) 1.10 1.05-1.25 [facility]2021-08-09 05:10:00 Test Item Value Reference Range Interpretation Comments Ca Norm WB (test code = Ca Norm WB) 1.06 1.05-1.25 [facility] RXZBKDIJTM5762-24-14 18:36:00 Test Item Value Reference Range Interpretation Comments C difficile DNA (test Negative (01/26/21 1:36 code = C difficile DNA) PM) [facility]2021-08-08 07:33:00 Test Item Value Reference Range Interpretation Comments Ca Ion WB (test code = Ca Ion WB) 1.12 1.05-1.25 [facility]2021-08-08 07:33:00 Test Item Value Reference Range Interpretation Comments Ca Norm WB (test code = Ca Norm WB) 1.07 1.05-1.25 [facility]2021-08-08 07:30:00 Test Item Value Reference Range Interpretation Comments Glucose Lvl (test code = Glucose Lvl) 65 70-99 [facility]2021-08-08 07:30:00 Test Item Value Reference Range Interpretation Comments BUN (test code = BUN) 21 7-22 [facility]2021-08-08 07:30:00 Test Item Value Reference Range Interpretation Comments Creatinine Lvl (test code = Creatinine 4.18 0.50-1.40 Lvl) [facility]2021-08-08 07:30:00 Test Item Value Reference Range Interpretation Comments Sodium Lvl (test code = Sodium Lvl) 136 135-145 [facility]2021-08-08 07:30:00 Test Item Value Reference Range Interpretation Comments Potassium Lvl (test code = Potassium 4.5 3.5-5.1 Lvl) [facility]2021-08-08 07:30:00 Test Item Value Reference Range Interpretation Comments Chloride Lvl (test code = Chloride Lvl) 99 95-109 [place] [id number] 07:30:00 Test Item Value Reference Range Interpretation Comments CO2 (test code = CO2) 31 24-32 [place] 569181-08-08 07:30:00 Test Item Value Reference Range Interpretation Comments AGAP (test code = AGAP) 10.5 10.0-20.0 [place] 569181-08-08 07:30:00 Test Item Value Reference Range Interpretation Comments Calcium Lvl (test code = Calcium Lvl) 7.9 8.5-10.5 [place] 569181-08-08 07:30:00 Test Item Value Reference Range Interpretation Comments eGFR (test code = eGFR) 13 [place] 569181-08-08 07:30:00 Test Item Value Reference Range Interpretation Comments Magnesium Lvl (test code = Magnesium 2.2 1.8-2.4 Lvl) [place] 569181-08-08 07:30:00 Test Item Value Reference Range Interpretation Comments Phosphorus (test code = Phosphorus) 4.4 2.5-4.5 [place] 658791-08-08 07:30:00 Test Item Value Reference Range Interpretation Comments WBC (test code = WBC) 2.3 3.7-10.4 [place] 658791-08-08 07:30:00 Test Item Value Reference Range Interpretation Comments RBC (test code = RBC) 2.88 4.20-5.40 [place] 658791-08-08 07:30:00 Test Item Value Reference Range Interpretation Comments Hgb (test code = Hgb) 8.6 12.0-16.0 [place] 658791-08-08 07:30:00 Test Item Value Reference Range Interpretation Comments Hct (test code = Hct) 26.6 36.0-48.0 [place] 658791-08-08 07:30:00 Test Item Value Reference Range Interpretation Comments MCV (test code = MCV) 92.2 80.0-98.0 [place] [address]-08-08 07:30:00 Test Item Value Reference Range Interpretation Comments MCH (test code = MCH) 29.8 pg 27.0-31.0 [place] 658791-08-08 07:30:00 Test Item Value Reference Range Interpretation Comments MCHC (test code = MCHC) 32.4 32.0-36.0 [place] 658791-08-08 07:30:00 Test Item Value Reference Range Interpretation Comments RDW (test code = RDW) 19.7 11.5-14.5 [place] 658791-08-08 07:30:00 Test Item Value Reference Range Interpretation Comments Platelet (test code = Platelet) 83 133-450 [facility]XofpcefZIASXJCRCV3930-95-09 07:30:00 Test Item Value Reference Range Interpretation Comments MPV (test code = MPV) 10.2 7.4-10.4 [place] 658791-08-08 07:30:00 Test Item Value Reference Range Interpretation Comments Segs (test code = Segs) 64.0 45.0-75.0 [place] 658791-08-08 07:30:00 Test Item Value Reference Range Interpretation Comments Lymphocytes (test code = Lymphocytes) 24.1 20.0-40.0 [place] 658791-08-08 07:30:00 Test Item Value Reference Range Interpretation Comments Monocytes (test code = Monocytes) 7.0 2.0-12.0 [facility] HospitalVxcjlhuONYDBJYMIO0469-90-49 07:30:00 Test Item Value Reference Range Interpretation Comments Eosinophils (test code = 3.7 See_Comment [A utomated message] The Eosinophils) system which ge nerated this result tra nsmitted reference range : <=4.0. The reference r leo was not used to int erpret this result as normal/abnormal . [facility] HospitalOvghtpvLAZEKONPLC0954-76-86 07:30:00 Test Item Value Reference Range Interpretation Comments Basophils (test code = 1.2 See_Comment [Aut omated message] The Basophils) system which ge nerated this result tra nsmitted reference range : <=1.0. The reference r leo was not used to int erpret this result as normal/abnormal . [facility] HospitalQkzohycPCOXZWTUTU1637-15-09 07:30:00 Test Item Value Reference Range Interpretation Comments Neutrophils # (test code = Neutrophils 1.5 1.5-8.1 #) [facility] HospitalCabwkdcKDUQSCJYWA8292-79-62 07:30:00 Test Item Value Reference Range Interpretation Comments Lymphocytes # (test code = Lymphocytes 0.6 1.0-5.5 #) [place] 658791-08-08 07:30:00 Test Item Value Reference Range Interpretation Comments Monocytes # (test code 0.2 See_Comment [Aut omated message] The = Monocytes #) system which generated this result tra nsmitted reference range : <=0.8. The reference r leo was not used to int erpret this result as normal/abnormal . [facility] HospitalIycmuedAZQOOOALVL6662-94-17 07:30:00 Test Item Value Reference Range Interpretation Comments Eosinophils # (test code 0.1 See_Comment [A utomated message] The = Eosinophils #) system whic h generated this result tra nsmitted reference range : <=0.5. The reference r leo was not used to int erpret this result as normal/abnormal . [place] 569181-08-07 09:32:00 Test Item Value Reference Range Interpretation Comments Glucose Lvl (test code = Glucose Lvl) 59 70-99 [place] 569181-08-07 09:32:00 Test Item Value Reference Range Interpretation Comments BUN (test code = BUN) 11 7-22 [place] 569181-08-07 09:32:00 Test Item Value Reference Range Interpretation Comments Creatinine Lvl (test code = Creatinine 2.75 0.50-1.40 Lvl) [place] 569181-08-07 09:32:00 Test Item Value Reference Range Interpretation Comments Sodium Lvl (test code = Sodium Lvl) 138 135-145 [place] 569181-08-07 09:32:00 Test Item Value Reference Range Interpretation Comments Potassium Lvl (test code = Potassium 4.1 3.5-5.1 Lvl) [place] 569181-08-07 09:32:00 Test Item Value Reference Range Interpretation Comments Chloride Lvl (test code = Chloride Lvl) 104 95-109 [place] 569181-08-07 09:32:00 Test Item Value Reference Range Interpretation Comments CO2 (test code = CO2) 29 24-32 [place] 569181-08-07 09:32:00 Test Item Value Reference Range Interpretation Comments Calcium Lvl (test code = Calcium Lvl) 8.3 8.5-10.5 [place] 569181-08-07 09:32:00 Test Item Value Reference Range Interpretation Comments AGAP (test code = AGAP) 9.1 10.0-20.0 [facility]2021-08-07 09:32:00 Test Item Value Reference Range Interpretation Comments eGFR (test code = eGFR) 21 [facility]2021-08-07 09:32:00 Test Item Value Reference Range Interpretation Comments Magnesium Lvl (test code = Magnesium 2.2 1.8-2.4 Lvl) [facility]2021-08-07 09:32:00 Test Item Value Reference Range Interpretation Comments Phosphorus (test code = Phosphorus) 3.9 2.5-4.5 [place] 658791-08-07 09:32:00 Test Item Value Reference Range Interpretation Comments WBC (test code = WBC) 2.3 3.7-10.4 [place] 658791-08-07 09:32:00 Test Item Value Reference Range Interpretation Comments RBC (test code = RBC) 2.78 4.20-5.40 [place] 658791-08-07 09:32:00 Test Item Value Reference Range Interpretation Comments Hgb (test code = Hgb) 8.4 12.0-16.0 [place] 658791-08-07 09:32:00 Test Item Value Reference Range Interpretation Comments Hct (test code = Hct) 25.2 36.0-48.0 [place] 658791-08-07 09:32:00 Test Item Value Reference Range Interpretation Comments MCV (test code = MCV) 90.5 80.0-98.0 [place] 658791-08-07 09:32:00 Test Item Value Reference Range Interpretation Comments MCH (test code = MCH) 30.4 pg 27.0-31.0 [place] 658791-08-07 09:32:00 Test Item Value Reference Range Interpretation Comments MCHC (test code = MCHC) 33.5 32.0-36.0 [place] 658791-08-07 09:32:00 Test Item Value Reference Range Interpretation Comments RDW (test code = RDW) 19.0 11.5-14.5 [place] 658791-08-07 09:32:00 Test Item Value Reference Range Interpretation Comments Platelet (test code = Platelet) 87 133-450 [facility] HospitalKeaqizbYEILWZRLDN4649-23-65 09:32:00 Test Item Value Reference Range Interpretation Comments MPV (test code = MPV) 10.0 7.4-10.4 [facility] [id number] 05:33:00 Test Item Value Reference Range Interpretation Comments ABO/Rh (test code = ABO/Rh) B POS [facility] [id number] 05:33:00 Test Item Value Reference Range Interpretation Comments Antibody Scrn (test Negative (01/24/21 12:33 code = Antibody Scrn) AM) [facility] HospitalWiypborOVBZLHTIYX1453-21-58 05:33:00 Test Item Value Reference Range Interpretation Comments Segs (test code = Segs) 60.2 45.0-75.0 [facility] HospitalHeetowzGWAKKMOXDC0420-43-61 05:33:00 Test Item Value Reference Range Interpretation Comments Lymphocytes (test code = Lymphocytes) 28.6 20.0-40.0 [facility] HospitalVtkrkjsNYKBJCYKGE1383-44-01 05:33:00 Test Item Value Reference Range Interpretation Comments Monocytes (test code = Monocytes) 5.8 2.0-12.0 [facility] HospitalLvhmgkrXMWBGVCSXZ1268-18-09 05:33:00 Test Item Value Reference Range Interpretation Comments Eosinophils (test code = 4.2 See_Comment [A utomated message] The Eosinophils) system which ge nerated this result tra nsmitted reference range : <=4.0. The reference r leo was not used to int erpret this result as normal/abnormal . [facility] HospitalGvpwfkzDNJPYFRNKC7963-95-86 05:33:00 Test Item Value Reference Range Interpretation Comments Basophils (test code = 1.2 See_Comment [Aut omated message] The Basophils) system which ge nerated this result tra nsmitted reference range : <=1.0. The reference r leo was not used to int erpret this result as normal/abnormal . [facility] HospitalLdvqnjkPSEQXHSMPQ8602-87-17 05:33:00 Test Item Value Reference Range Interpretation Comments Neutrophils # (test code = Neutrophils 2.2 1.5-8.1 #) [facility] HospitalEccsragWTSJAJWUPZ3292-56-73 05:33:00 Test Item Value Reference Range Interpretation Comments Lymphocytes # (test code = Lymphocytes 1.1 1.0-5.5 #) [facility] HospitalAakqpgtBAAGPXAHXX0971-51-61 05:33:00 Test Item Value Reference Range Interpretation Comments Monocytes # (test code 0.2 See_Comment [Aut omated message] The = Monocytes #) system which generated this result tra nsmitted reference range : <=0.8. The reference r leo was not used to int erpret this result as normal/abnormal . [facility] HospitalRjtmjhyKTLSKQHVHC3464-59-36 05:33:00 Test Item Value Reference Range Interpretation Comments Eosinophils # (test code 0.2 See_Comment [A utomated message] The = Eosinophils #) system whic h generated this result tra nsmitted reference range : <=0.5. The reference r leo was not used to int erpret this result as normal/abnormal . [facility] HospitalJngwmwlJITBYVJWZD6122-72-49 05:53:00 Test Item Value Reference Range Interpretation Comments PT (test code = PT) 14.4 s 12.0-14.7 [facility] HospitalPjxknjcDMKQSQYYVW6633-26-99 05:53:00 Test Item Value Reference Range Interpretation Comments INR (test code = INR) 1.13 1 0.85-1.17 [facility] HospitalTjmafndQJXVNVGGMJ5712-25-86 05:53:00 Test Item Value Reference Range Interpretation Comments Fibrinogen Lvl (test code = Fibrinogen 319 230-510 Lvl) [facility] HospitalSvjgcuqVBBCNVNLEP8202-07-67 05:53:00 Test Item Value Reference Range Interpretation Comments Thrombin Time (test code = Thrombin 15.9 s 15.0-21.2 Time) [facility] HospitalDisffzgWRNCTLIHNG9541-18-68 05:53:00 Test Item Value Reference Range Interpretation Comments PTT (test code = PTT) 47.0 s 22.9-35.8 [facility] HospitalCjordenFKGTHHLPIM9627-22-94 05:53:00 Test Item Value Reference Range Interpretation Comments D-Dimer (test code = D-Dimer) 0.91 [facility] HospitalWidswlrDRXKOFOJKS7312-42-61 05:53:00 Test Item Value Reference Range Interpretation Comments Basophils # (test code 0.1 See_Comment [Aut omated message] The = Basophils #) system which generated this result tra nsmitted reference range : <=0.2. The reference r leo was not used to int erpret this result as normal/abnormal . [facility] RegionalPARATHYROID [id number] 05:53:00 Test Item Value Reference Range Interpretation Comments Ca Ion WB (test code = Ca Ion WB) 1.24 1.05-1.25 [facility]landnaeemPARATHYROID [id number] 05:53:00 Test Item Value Reference Range Interpretation Comments Ca Norm WB (test code = Ca Norm WB) 1.25 1.05-1.25 [facility] MainlandALOSKOHIGHLANDS-CASHIERS HOSPITALWSNQN8632-46-25 10:09:00 Test Item Value Reference Range Interpretation Comments ALT (test code = ALT) 49 See_Comment [Auto mated message] The system which ge nerated this result transmit rohit reference range : <=65. The reference range was not used to interpr et this result as reji l/abnormal. [facility] MainlandPro-[facility] Ventures [id number] 10:09:00 Test Item Value Reference Range Interpretation Comments Albumin Lvl (test code = Albumin Lvl) 2.8 3.5-5.0 [facility]2021-08-04 10:09:00 Test Item Value Reference Range Interpretation Comments Alk Phos (test code = Alk Phos) 41 39-136 [facility]landALOSKOHIGHLANDS-CASHIERS HOSPITALXQZYN5741-16-26 10:09:00 Test Item Value Reference Range Interpretation Comments Bili Direct (test code 0.2 See_Comment [Aut omated message] The = Bili Direct) system which generated this result tra nsmitted reference range : <=0.3. The reference r leo was not used to int erpret this result as reji l/abnormal. [facility]landPro-[facility] [id number] 10:09:00 Test Item Value Reference Range Interpretation Comments Bili Total (test code = Bili Total) 0.6 0.2-1.3 [facility]landPro-[facility] [id number] 10:09:00 Test Item Value Reference Range Interpretation Comments Bili Indirect (test 0.4 See_Comment [Automa rohit message] The code = Bili Indirect) system which generated this result tra nsmitted reference range : <=1.0. The reference r leo was not used to int erpret this result as normal/abnormal . [facility]landPro-[facility] [id number] 10:09:00 Test Item Value Reference Range Interpretation Comments Total Protein (test code = Total 5.6 6.4-8.4 Protein) [facility]2021-08-04 10:09:00 Test Item Value Reference Range Interpretation Comments AST (test code = AST) 33 See_Comment [Auto mated message] The system which ge nerated this result transmit rohit reference range : <=37. The reference range was not used to interpr et this result as reji l/abnormal. [facility] RegionalGreenph[facility] [id number] 10:09:00 Test Item Value Reference Range Interpretation Comments Globulin (test code = Globulin) 2.8 2.7-4.2 [facility] RegionalGreenph[facility] [id number] 10:09:00 Test Item Value Reference Range Interpretation Comments A/G Ratio (test code = A/G Ratio) 1.0 1 0.7-1.6 [facility] RegionalGreen[facility] [id number] 10:09:00 Test Item Value Reference Range Interpretation Comments Amylase Lvl (test code = Amylase Lvl) 19 25-115 [facility]Green[facility] [id number] 10:09:00 Test Item Value Reference Range Interpretation Comments Lipase Lvl (test code = Lipase Lvl) no gt 73-393 [facility] RegionalBpquvgcOGNTGNGABB9751-68-27 10:09:00 Test Item Value Reference Range Interpretation Comments PTT (test code = PTT) 41.4 s 22.9-35.8 [facility] RegionalUpdcpmkNMRTYVHBWO8604-39-13 10:09:00 Test Item Value Reference Range Interpretation Comments PT (test code = PT) 15.4 s 12.0-14.7 [facility] RegionalTbzkpfiAXHJPOGCED2760-83-97 10:09:00 Test Item Value Reference Range Interpretation Comments INR (test code = INR) 1.24 1 0.85-1.17 [facility] RegionalQceqpggMZTVGWPZMW4080-31-12 10:09:00 Test Item Value Reference Range Interpretation Comments Fibrinogen Lvl (test code = Fibrinogen 312 230-510 Lvl) [facility] HospitalXrhrizoFQYDAZIISX0139-00-02 10:09:00 Test Item Value Reference Range Interpretation Comments Thrombin Time (test code = Thrombin 16.6 s 15.0-21.2 Time) [facility] HospitalFazsgivDCTWWCNCOC5612-74-90 10:09:00 Test Item Value Reference Range Interpretation Comments D-Dimer (test code = D-Dimer) 4.91 [facility] HospitalRksjhpwGPWYOTOHEV8227-49-99 10:09:00 Test Item Value Reference Range Interpretation Comments Basophils # (test code 0.1 See_Comment [Aut omated message] The = Basophils #) system which generated this result tra nsmitted reference range : <=0.2. The reference r leo was not used to int erpret this result as normal/abnormal . [facility] [id number] 10:09:00 Test Item Value Reference Range Interpretation Comments Hgb A1C (test code = Hgb A1C) 5.6 [facility] RegionalCHEM [id number] 09:07:00 Test Item Value Reference Range Interpretation Comments Amylase Lvl (test code = Amylase Lvl) 4 25-115 [facility] RegionalTeizmgxEAOCIPHCUL3203-14-94 09:07:00 Test Item Value Reference Range Interpretation Comments Thrombin Time (test code = Thrombin 18.0 s 15.0-21.2 Time) [facility]idepfNVHGXSMZOT8286-86-15 09:07:00 Test Item Value Reference Range Interpretation Comments PT (test code = PT) 24.6 s 12.0-14.7 [facility] HospitalMfmlduzINDZKNWZEZ3759-66-67 09:07:00 Test Item Value Reference Range Interpretation Comments INR (test code = INR) 2.31 1 0.85-1.17 [facility] HospitalLkrotivGRAONIQNEL7809-51-27 09:07:00 Test Item Value Reference Range Interpretation Comments PTT (test code = PTT) 57.5 s 22.9-35.8 [facility] RegionalChoywimKGRJRJAGSG8967-61-97 09:07:00 Test Item Value Reference Range Interpretation Comments Fibrinogen Lvl (test code = Fibrinogen 125 230-510 Lvl) [facility] HospitalJdqbaulGVOCQDQRMM9408-33-41 09:07:00 Test Item Value Reference Range Interpretation Comments D-Dimer (test code = D-Dimer) 2.28 [facility] RegionalBLOOD B[facility] [id number] 04:52:00 Test Item Value Reference Range Interpretation Comments RBC product (test code Product available = RBC product) (01/21/21 11:52 PM) [facility] RegionalCARDIAC [id number] 00:38:00 Test Item Value Reference Range Interpretation Comments Troponin-I (test code no gt See_Comment [Auto mated message] The = Troponin-I) system which g enerated this result transmit rohit reference range : <=0.40. The reference r leo was not used to interpr et this result as reji l/abnormal. [facility] RegionalPodio [id number] 17:47:00 Test Item Value Reference Range Interpretation Comments BNP (test code = BNP) 2324 [facility]landannCARDIAC UQCEEEW8829-76-05 17:47:00 Test Item Value Reference Range Interpretation Comments Troponin-I (test code 0.02 See_Comment [Auto mated message] The = Troponin-I) system which g enerated this result transmit rohit reference range : <=0.40. The reference r loe was not used to interpr et this result as reji l/abnormal. [facility] RegionalJqzlsohOVQPJMYDMG7873-03-65 17:47:00 Test Item Value Reference Range Interpretation Comments Hep Bs Ag (test code Negative *NA*(01/21/21 = Hep Bs Ag) 12:47 PM) [facility]landPro[facility] [id number] 17:43:00 Test Item Value Reference Range Interpretation Comments B/C Ratio (test code = B/C Ratio) 5 1 6-25 [facility]landPro[facility] [id number] 17:43:00 Test Item Value Reference Range Interpretation Comments ALT (test code = ALT) 66 See_Comment [Auto mated message] The system which ge nerated this result transmit rohit reference range : <=65. The reference range was not used to interpr et this result as reji l/abnormal. [facility] [employer] [id number] 17:43:00 Test Item Value Reference Range Interpretation Comments Albumin Lvl (test code = Albumin Lvl) 3.0 3.5-5.0 [facility] [id number] 17:43:00 Test Item Value Reference Range Interpretation Comments Alk Phos (test code = Alk Phos) 40 39-136 [facility] [id number] 17:43:00 Test Item Value Reference Range Interpretation Comments Bili Total (test code = Bili Total) 0.5 0.2-1.3 [facility]landPro[facility] [id number] 17:43:00 Test Item Value Reference Range Interpretation Comments Total Protein (test code = Total 5.7 6.4-8.4 Protein) [facility]landPro[facility] [id number] 17:43:00 Test Item Value Reference Range Interpretation Comments AST (test code = AST) 52 See_Comment [Auto mated message] The system which ge nerated this result transmit rohit reference range : <=37. The reference range was not used to interpr et this result as reji l/abnormal. [facility] [employer] [id number] 17:43:00 Test Item Value Reference Range Interpretation Comments Globulin (test code = Globulin) 2.7 2.7-4.2 [facility] [id number] 17:43:00 Test Item Value Reference Range Interpretation Comments A/G Ratio (test code = A/G Ratio) 1.1 1 0.7-1.6 [facility] [employer] [id number] 17:43:00 Test Item Value Reference Range Interpretation Comments Lactic Acid Lvl (test code = Lactic 1.1 0.5-2.2 Acid Lvl) [facility] MainlandBioSurplus [id number] 16:20:00 Test Item Value Reference Range Interpretation Comments ABO/Rh (test code = ABO/Rh) B POS [facility] [employer] [id number] 16:20:00 Test Item Value Reference Range Interpretation Comments Antibody Scrn (test Negative (01/21/21 11:20 code = Antibody Scrn) AM) [facility] Re[id number] 16:20:00 Test Item Value Reference Range Interpretation Comments Anisocyte (test code = 1+ *ABN*(01/21/21 Anisocyte) 11:20 AM) [facility] MainlandItalia OnlineAD[facility] [id number] 15:35:00 Test Item Value Reference Range Interpretation Comments Lactase Lvl (test code = Lactase Lvl) 2.0 [facility] [employer] [facility] [facility] [id number] 15:35:00 Test Item Value Reference Range Interpretation Comments Sucrase Lvl (test code = Sucrase Lvl) 38.6 [facility] [id number] 15:35:00 Test Item Value Reference Range Interpretation Comments Maltase Lvl (test code = Maltase Lvl) 177.2 [facility] [id number] 15:35:00 Test Item Value Reference Range Interpretation Comments Palatinase Lvl (test code = Palatinase 13.8 Lvl) [facility] MainlandUtoojdgBMYUPNRMYLZL1528-67-78 13:21:00 Test Item Value Reference Range Interpretation Comments Potassium WB (test code = Potassium WB) 5.1 3.5-5.1 [facility] BudaF[id number] 13:21:00 Test Item Value Reference Range Interpretation Comments S Preg (test code = S Negative 8*NA*(01/21/21 Preg) 8:21 AM) [facility] RegionalHsxuefkRXRJIXGSJL0528-31-96 11:19:00 Test Item Value Reference Range Interpretation Comments Coronavirus (COVID-19) Not Detected (01/21/21 EMANUEL (test code = 6:19 AM) Coronavirus (COVID-19) EMANUEL) [facility]2020-08-12 16:39:05 Test Item Value Reference Range Interpretation Comments Glucose POC (test 183 mg/dL 70-115 H If you con [employer]ke worker your code = Glucose POC) patient critically ill, the Merlin-Accu Check Infrom II meter should not be used for Glucose determination. Draw a venous Glucose and send to the main Lab for analysis. Urine [id number] 11:32:13 Test Item Value Reference Range Interpretation [...] Escherichia coli C Urine Added by GL_SJM_UA_CUL_INDPOC [id number] 07:52:10 Test Item Value Reference Range Interpretation Comments Glucose POC (test 160 mg/dL 70-115 H If you con coke worker your code = Glucose POC) patient critically ill, the Merlin-Accu Check Infrom II meter should not be used for Glucose determination. Draw a venous Glucose and send to the main Lab for analysis. POC [id number] 19:32:05 Test Item Value Reference Range Interpretation Comments Glucose POC (test 184 mg/dL 70-115 H If you con coke worker your code = Glucose POC) patient critically ill, the Merlin-Accu Check Infrom II meter should not be used for Glucose determination. Draw a venous Glucose and send to the main Lab for analysis. POC [id number] 17:16:35 Test Item Value Reference Range Interpretation Comments Glucose POC (test 281 mg/dL 70-115 H Notify RN or MDIf you code = Glucose POC) consider your patient critically ill, the Merlin-Accu Chec k Infrom II meter should not be used for Glucos e determination. Draw a venous Glucose and send to the main Lab for analysis. POC [id number] 12:00:38 Test Item Value Reference Range Interpretation Comments Glucose POC (test 138 mg/dL 70-115 H Notify RN or MDIf you code = Glucose POC) consider your patient critically ill, the Merlin-Accu Chec k Infrom II meter should not be used for Glucos e determination. Draw a venous Glucose and send to the main Lab for analysis. POC [id number] 07:41:32 Test Item Value Reference Range Interpretation Comments Glucose POC (test 206 mg/dL 70-115 H Notify RN or MDIf you code = Glucose POC) consider your patient critically ill, the Merlin-Accu Chec k Infrom II meter should not be used for Glucos e determination. Draw a venous Glucose and send to the main Lab for analysis. Urinalysis [id number] 21:07:21 Test Item Value Reference Range Interpretation Comments UA WBC (test code = UA WBC) TNTC 0-5 A UA RBC (test code = UA RBC) 6-10 0-5 A UA Bacteria (test code = UA Bacteria) Profuse A UA Squam Epithelial (test code = UA 6-10 A Squam Epithelial) Urinalysis with Culture, if [id number] 20:35:14 Test Item Value Reference Range Interpretation [...] Micro Indicated Not Indicated A Ind?) POC [id number] 19:06:34 Test Item Value Reference Range Interpretation Comments Glucose POC (test 207 mg/dL 70-115 H If you con coke worker your code = Glucose POC) patient critically ill, the Merlin-Accu Check Infrom II meter should not be used for Glucose determination. Draw a venous Glucose and send to the main Lab for analysis. POC [id number] 17:12:03 Test Item Value Reference Range Interpretation Comments Glucose POC (test 173 mg/dL 70-115 H Notify RN or MDIf you code = Glucose POC) consider your patient critically ill, the Merlin-Accu Chec k Infrom II meter should not be used for Glucos e determination. Draw a venous Glucose and send to the main Lab for analysis. POC [id number] 11:58:01 Test Item Value Reference Range Interpretation Comments Glucose POC (test 289 mg/dL 70-115 H Notify RN or MDIf you code = Glucose POC) consider your patient critically ill, the Merlin-Accu Chec k Infrom II meter should not be used for Glucos e determination. Draw a venous Glucose and send to the main Lab for analysis. POC [id number] 08:19:37 Test Item Value Reference Range Interpretation Comments Glucose POC (test 201 mg/dL 70-115 H Notify RN or MDIf you code = Glucose POC) consider your patient critically ill, the Merlin-Accu Chec k Infrom II meter should not be used for Glucos e determination. Draw a venous Glucose and send to the main Lab for analysis. POC [id number] 20:37:35 Test Item Value Reference Range Interpretation Comments Glucose POC (test 272 mg/dL 70-115 H If you con coke worker your code = Glucose POC) patient critically ill, the Merlin-Accu Check Infrom II meter should not be used for Glucose determination. Draw a venous Glucose and send to the main Lab for analysis. POC [id number] 17:23:05 Test Item Value Reference Range Interpretation Comments Glucose POC (test 229 mg/dL 70-115 H If you con coke worker your code = Glucose POC) patient critically ill, the Merlin-Accu Check Infrom II meter should not be used for Glucose determination. Draw a venous Glucose and send to the main Lab for analysis. POC [id number] 12:01:01 Test Item Value Reference Range Interpretation Comments Glucose POC (test 155 mg/dL 70-115 H If you con coke worker your code = Glucose POC) patient critically ill, the Merlin-Accu Check Infrom II meter should not be used for Glucose determination. Draw a venous Glucose and send to the main Lab for analysis. POC [id number] 08:07:32 Test Item Value Reference Range Interpretation Comments Glucose POC (test 248 mg/dL 70-115 H If you con coke worker your code = Glucose POC) patient critically ill, the Merlin-Accu Check Infrom II meter should not be used for Glucose determination. Draw a venous Glucose and send to the main Lab for analysis. IG [id number] 06:50:39 Test Item Value Reference Range Interpretation Comments IG (test code = IG) 0.7 % 0.0-5.0 IG Abs (test code = IG Abs) 0 x10 N Complete Blood Count with [id number] 06:50:38 Test Item Value Reference Range Interpretation [...] code = IPF) 0 % N Automated [id number] 06:50:38 Test Item Value Reference Range Interpretation Comments Neutro Auto (test code = Neutro 50.3 % 36.0-70.0 Auto) Lymph Auto (test code = Lymph Auto) 38.6 % 12.0-44.0 [place] Auto (test code = [place] Auto) 7.3 % 0.0-11.0 Eos, Auto (test code = Eos, Auto) 2.4 % 0.0-7.0 Basophil Auto (test code = Basophil 0.7 % 0.0-2.0 Auto) Neutro Absolute (test code = Neutro 3.0 x10 1.6-7.4 Absolute) Lymph Absolute (test code = Lymph 2.28 x10 .50-4.60 Absolute) [place] Absolute (test code = [place] .43 x10 .00-1.20 Absolute) Eos Absolute (test code = Eos 0.14 x10 0.00-0.74 Absolute) Baso Absolute (test code = Baso 0.04 x10 0.00-0.21 Absolute) Basic Metabolic [id number] 05:38:20 Test Item Value Reference Range Interpretation [...] = Lipemia) 0 mg/dL 8-11 Basic Metabolic [id number] 05:38:20 Test Item Value Reference Range Interpretation [...] = 0 mg/dL 8-11 Lipemia) Basic Metabolic [id number] 05:38:20 Test Item Value Reference Range Interpretation [...] ag e have not been validated by [facility] MDRD study and should be interpreted [...] ag e have not been validated by [facility] MDRD study and should be interpreted [...] code = 0 mg/dL 8-11 Lipemia) POC [id number] 20:28:33 Test Item Value Reference Range Interpretation Comments Glucose POC (test 169 mg/dL 70-115 H If you con coke worker your code = Glucose POC) patient critically ill, the Merlin-Accu Check Infrom II meter should not be used for Glucose determination. Draw a venous Glucose and send to the main Lab for analysis. POC [id number] 16:39:30 Test Item Value Reference Range Interpretation Comments Glucose POC (test 103 mg/dL 70-115 If you con coke worker your code = Glucose POC) patient critically ill, the Merlin-Accu Check Infrom II meter should not be used for Glucose determination. Draw a venous Glucose and send to the main Lab for analysis. RPR [id number] 12:08:56 Test Item Value Reference Range Interpretation Comments RPR Qual (test code = RPR Qual) Non-Reactive Non-Reactive Reactive Control (test code = Reactive Reactive Control) Weak Reactive Control (test Weak Reactive code = Weak Reactive Control) Non-Reactive Control (test code Non-Reactive = Non-Reactive Control) Lot # (test code = Lot #) [id number] N Expiration Dt (test code = 03-20-2021 N Expiration Dt) POC [id number] 11:52:31 Test Item Value Reference Range Interpretation Comments Glucose POC (test 250 mg/dL 70-115 H If you con coke worker your code = Glucose POC) patient critically ill, the Merlin-Accu Check Infrom II meter should not be used for Glucose determination. Draw a venous Glucose and send to the main Lab for analysis. POC [id number] 07:55:29 Test Item Value Reference Range Interpretation Comments Glucose POC (test 205 mg/dL 70-115 H If you con coke worker your code = Glucose POC) patient critically ill, the Merlin-Accu Check Infrom II meter should not be used for Glucose determination. Draw a venous Glucose and send to the main Lab for analysis. Lipid [id number] 05:46:04 Test Item Value Reference Range Interpretation [...] LDL/HDL Ratio=L DL Calc/HDL Chol Thyroid Stimulating [id number] 05:46:04 Test Item Value Reference Range Interpretation Comments TSH (test code = TSH) 3.274 mcIU/mL 0.550-4.780 Hemoglobin [id number] 05:41:08 Test Item Value Reference Range Interpretation Comments Hemoglobin A1c (test code 7.6 % 4.0-5.8 H Di abetic >=6.5 = Hemoglobin A1c) %Prediabet es 5.7-6.4 %Normal <5.7 % Hepatitis B Surface [id number] 21:19:36 Test Item Value Reference Range Interpretation Comments Hep Bs Ag (test code = Hep Bs Non-Reactive Non-Reactive Ag) Novel Coronavirus SARS-CoV-2, [id number] 11:16:16 Test Item Value Reference Range Interpretation [...] Emergency Use Authorization." Novel Coronavirus (COVID-19), EMANUEL [id number] 11:11:24TNPTest not sent and performed at [facility]Rapid was perfomed in Microbiology.Wrong covid test was ord ered.Urine DOA [id number] 00:17:49 Test Item Value Reference Range Interpretation [...] Propoxyphene Confirmation wi thin 7 days. Alcohol [id number] 00:17:29 Test Item Value Reference Range Interpretation Comments Ethanol Level 9.0 mg/dL N The pharmacolo gical (test code = response to blo od alcohol Ethanol Level) levels may va ry from individual to i ndividual. The fatal omkar ntration has been report ed to be >400 mg/dl. Comprehensive Metabolic [id number] 00:17:28 Test Item Value Reference Range Interpretation [...] = Lipemia) 0 g/dL 1-2 Comprehensive Metabolic [id number] 00:17:28 Test Item Value Reference Range Interpretation [...] = 0 g/dL 1-2 Lipemia) Comprehensive Metabolic [id number] 00:17:28 Test Item Value Reference Range Interpretation [...] g/dL 1-2 Lipemia) Complete Blood Count with [id number] 23:26:28 Test Item Value Reference Range Interpretation [...] code = IPF) 0 % N Automated [id number] 23:26:28 Test Item Value Reference Range Interpretation Comments Neutro Auto (test code = Neutro 67.1 % 36.0-70.0 Auto) Lymph Auto (test code = Lymph Auto) 23.3 % 12.0-44.0 [place] Auto (test code = [place] Auto) 5.8 % 0.0-11.0 Eos, Auto (test code = Eos, Auto) 2.3 % 0.0-7.0 Basophil Auto (test code = Basophil 0.8 % 0.0-2.0 Auto) Neutro Absolute (test code = Neutro 6.0 x10 1.6-7.4 Absolute) Lymph Absolute (test code = Lymph 2.10 x10 .50-4.60 Absolute) [place] Absolute (test code = [place] .52 x10 .00-1.20 Absolute) Eos Absolute (test code = Eos 0.21 x10 0.00-0.74 Absolute) Baso Absolute (test code = Baso 0.07 x10 0.00-0.21 Absolute) IG [id number] 23:26:28 Test Item Value Reference Range Interpretation Comments IG (test code = IG) 0.7 % 0.0-5.0 IG Abs (test code = IG Abs) 0 x10 N HERPES VIRUS ANTIBODY, [id number] 21:46:00 Test Item Value Reference Range Interpretation Comments HERPES VIRUS IGM (BEAKER) Negative SE E ATTACHMENT (test code = 1808) BLOOD [id number] 06:00:00 Test Item Value Reference Range Interpretation Comments CULTURE (BEAKER) (test No growth in 5 days code = 1095) BLOOD [id number] 06:00:00 Test Item Value Reference Range Interpretation Comments CULTURE (BEAKER) (test No growth in 5 days code = 1095) POCT-GLUCOSE [id number] 12:11:00 Test Item Value Reference Range Interpretation Comments POC-GLUCOSE METER 154 mg/dL 70-110 H TESTED AT [facility] 6720 (BEAKER) (test code = [place] 1538) [id number] POCT-GLUCOSE [id number] 07:53:00 Test Item Value Reference Range Interpretation Comments POC-GLUCOSE METER 87 mg/dL 70-110 TESTED AT [facility] 6720 (BEAKER) (test code = [place] [address] 1538) POCT-GLUCOSE [id number] 06:49:00 Test Item Value Reference Range Interpretation Comments POC-GLUCOSE METER 79 mg/dL 70-110 TESTED AT [facility] 6720 (BEAKER) (test code = [place] [facility] [address] 1538) COMPREHENSIVE METABOLIC [id number] 06:15:00 Test Item Value Reference Range Interpretation [...] S NOT APPLICABLE FOR DIALYSIS PATIANGELICA TS. [id number] 06:11:00 Test Item Value Reference Range Interpretation Comments MAGNESIUM (BEAKER) (test code = 2.1 mg/dL 1.6-2.6 627) HEPATIC FUNCTION [id number] 06:11:00 Test Item Value Reference Range Interpretation [...] code = 513 U/L 6-55 H 347) [id number] 05:30:00 Test Item Value Reference Range Interpretation Comments FIBRINOGEN LEVEL (BEAKER) (test 368 mg/dl 225-434 code = 658) [id number] 05:30:00 Test Item Value Reference Range Interpretation Comments PARTIAL THROMBOPLASTIN TIME 42.2 seconds 22.5-36.0 H (BEAKER) (test code = 760) PROTHROMBIN [id number] 05:29:00 Test Item Value Reference Range Interpretation Comments PROTIME (BEAKER) (test code = 14.8 seconds 11.7-14.7 H 759) INR (BEAKER) (test code = 370) 1.2 <=5.9 RECOMMENDED COUMADIN/WARFARIN INR THERAPY RANGESSTANDARD DOSE: 2.0 - 3.0 Includes: PROPHYLAXIS forvenous thrombosis, systemic embolization; TREATMENT for venous thrombosis and/or pulmonary embolus.HIGH RISK: Target INR is 2.5-3.5 for patients with mechanical heart valves.POCT-GLUCOSE [id number] 21:09:00 Test Item Value Reference Range Interpretation Comments POC-GLUCOSE METER 178 mg/dL 70-110 H TESTED AT [facility] 6720 ([facility]) (test code = [place] 1538) [id number] POCT-GLUCOSE [id number] 17:18:00 Test Item Value Reference Range Interpretation Comments POC-GLUCOSE METER 178 mg/dL 70-110 H TESTED AT [facility] 6720 ([facility]) (test code = [place] [facility] 1538) [address] POCT-GLUCOSE [id number] 13:48:00 Test Item Value Reference Range Interpretation Comments POC-GLUCOSE METER 150 mg/dL 70-110 H TESTED AT [place] [address] ([facility]) (test code = [facility] 1538) [address] FACTOR 5 ACTIVITY (BLEEDING RISK)2017-01-06 10:04:00 Test Item Value Reference Range Interpretation Comments FACTOR V ACTIVITY ([facility]) (test code 90.0 % 60.0-150.0 = 665) Effective 10/24/2013: Reference Range Change-Adult onlyNew: 60.0-150.0 Previous: 50.0-150.0CYTOMEGALOVIRUS ANTIBODY, [id number] 09:42:00 Test Item Value Reference Range Interpretation Comments CYTOMEGALOVIRUS IGM ANTIBODY Negative ([facility]) (test code = 816) HERPES VIRUS ANTIBODY, [id number] 08:59:00 Test Item Value Reference Range Interpretation Comments 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[facility]) (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 G 1807) CYTOMEGALOVIRUS ANTIBODY, [id number] 08:59:00 Test Item Value Reference Range Interpretation Comments CYTOMEGALOVIRUS IGG ANTIBODY Positive ([facility]) (test code = 790) EBV-VCA ANTIBODY, [id number] 08:59:00 Test Item Value Reference Range Interpretation Comments JASE-WALL VCA IGG ([facility]) (test Positive code = 983) EBV-VCA ANTIBODY, [id number] 08:59:00 Test Item Value Reference Range Interpretation Comments JASE-WALL VCA IGM ([facility]) (test Negative code = 984) POCT-GLUCOSE [id number] 07:59:00 Test Item Value Reference Range Interpretation Comments POC-GLUCOSE METER 81 mg/dL 70-110 TESTED AT [facility] 6720 ([facility]) (test code = [facility] [address] 1538) COMPREHENSIVE METABOLIC [id number] 06:23:00 Test Item Value Reference Range Interpretation [...] S NOT APPLICABLE FOR DIALYSIS PATIEN TS. [id number] 06:17:00 Test Item Value Reference Range Interpretation Comments MAGNESIUM (BEAKER) (test code = 1.8 mg/dL 1.6-2.6 627) HEPATIC FUNCTION [id number] 06:17:00 Test Item Value Reference Range Interpretation [...] code = 779 U/L 6-55 H 347) [id number] 06:00:00 Test Item Value Reference Range Interpretation Comments FIBRINOGEN LEVEL (BEAKER) (test 390 mg/dl 225-434 code = 658) [id number] 06:00:00 Test Item Value Reference Range Interpretation Comments PARTIAL THROMBOPLASTIN TIME 40.2 seconds 22.5-36.0 H (AKER) (test code = 760) PROTHROMBIN [id number] 05:59:00 Test Item Value Reference Range Interpretation Comments PROTIME ([facility]) (test code = 14.6 seconds 11.7-14.7 759) INR ([facility]) (test code = 370) 1.2 <=5.9 RECOMMENDED COUMADIN/WARFARIN INR THERAPY RANGESSTANDARD DOSE: 2.0 - 3.0 Includes: PROPHYLAXIS forvenous thrombosis, systemic embolization; TREATMENT for venous thrombosis and/or pulmonary embolus.HIGH RISK: Target INR is 2.5-3.5 for patients with mechanical heart valves.POCT-GLUCOSE [id number] 21:46:00 Test Item Value Reference Range Interpretation Comments POC-GLUCOSE METER 153 mg/dL 70-110 H TESTED AT [place] [address] ([facility]) (test code = [place] [facility] 1538) [address] POCT-GLUCOSE [id number] 18:47:00 Test Item Value Reference Range Interpretation Comments POC-GLUCOSE METER 181 mg/dL 70-110 H TESTED AT [place] [address] ([facility]) (test code = [place] [facility] 1538) [address] POCT-GLUCOSE [id number] 12:40:00 Test Item Value Reference Range Interpretation Comments POC-GLUCOSE METER 178 mg/dL 70-110 H TESTED AT [place] [address] ([facility]) (test code = [place] [facility] 1538) [address] POCT-GLUCOSE [id number] 07:51:00 Test Item Value Reference Range Interpretation Comments POC-GLUCOSE METER 166 mg/dL 70-110 H TESTED AT [facility] 6720 (BEAKER) (test code = [place] 1530) [address] COMPREHENSIVE METABOLIC [id number] 03:26:00 Test Item Value Reference Range Interpretation [...] S NOT APPLICABLE FOR DIALYSIS PATIEN TS. [id number] 03:22:00 Test Item Value Reference Range Interpretation Comments MAGNESIUM (BEAKER) (test code = 1.4 mg/dL 1.6-2.6 L 627) HEPATIC FUNCTION [id number] 03:22:00 Test Item Value Reference Range Interpretation [...] code = 1009 U/L 6-55 H 347) [id number] 03:12:00 Test Item Value Reference Range Interpretation Comments AMMONIA (BEAKER) (test code = 348) 29 mol/L 18-72 [id number] 03:10:00 Test Item Value Reference Range Interpretation Comments PARTIAL THROMBOPLASTIN TIME 42.3 seconds 22.5-36.0 H (BEAKER) (test code = 760) PROTHROMBIN [id number] 03:09:00 Test Item Value Reference Range Interpretation Comments PROTIME (BEAKER) (test code = 16.4 seconds 11.7-14.7 H 759) INR (BEAKER) (test code = 370) 1.3 <=5.9 RECOMMENDED COUMADIN/WARFARIN INR THERAPY RANGESSTANDARD DOSE: 2.0 - 3.0 Includes: PROPHYLAXIS forvenous thrombosis, systemic embolization; TREATMENT for venous thrombosis and/or pulmonary embolus.HIGH RISK: Target INR is 2.5-3.5 for patients with mechanical heart valves.[id number] 03:09:00 Test Item Value Reference Range Interpretation Comments FIBRINOGEN LEVEL (BEAKER) (test 413 mg/dl 225-434 code = 658) CBC W/PLT COUNT & AUTO [id number] 03:09:00 Test Item Value Reference Range Interpretation [...] L 0.00-0.20 (test code = 417) 0.00POCT-GLUCOSE [id number] 22:33:00 Test Item Value Reference Range Interpretation Comments POC-GLUCOSE METER 230 mg/dL 70-110 H TESTED AT [facility] 6720 (BEAKER) (test code = [place] 1538) [address] POCT-GLUCOSE [id number] 18:17:00 Test Item Value Reference Range Interpretation Comments POC-GLUCOSE METER 222 mg/dL 70-110 H TESTED AT [facility] 6720 (BEAKER) (test code = [place] 1538) [address] COMPREHENSIVE METABOLIC [id number] 16:59:00 Test Item Value Reference Range Interpretation [...] PATIEN TS. PERIPHERAL BLOOD SMEAR - PATHOLOGIST [id number] 15:30:00 Test Item Value Reference Range Interpretation Comments RBC MORPHOLOGY Polychromasia (BEAKER) (test code = 2846) RBC MORPHOLOGY Anisocytosis (BEAKER) (test code = 56082) PERIPHERAL SMR REVIEW Cell counts confirmed (MADIE) (test code = 2640) [id number] Josefina [place] M.D. ([facility]) (test code = (electronic signature) 7226) PROTHROMBIN [id number] 15:12:00 Test Item Value Reference Range Interpretation Comments PROTIME (MADIE) (test code = 16.6 seconds 11.7-14.7 H 759) [facility] ([facility] (test code = 370) 1.4 <=5.9 RECOMMENDED COUMADIN/WARFARIN INR THERAPY RANGESSTANDARD DOSE: 2.0 - 3.0 Includes: PROPHYLAXIS forvenous thrombosis, systemic embolization; TREATMENT for venous thrombosis and/or pulmonary embolus.HIGH RISK: Target INR is 2.5-3.5 for patients with mechanical heart valves.ANTI-NUCLEAR ANTIBODY (IVETTE)2017-01-04 14:32:00 Test Item Value Reference Range Interpretation Comments ANTI-NUCLEAR ANTIBODY (IVETTE) ([facility]) Negative Negative (test code = 418) POCT-GLUCOSE [id number] 12:47:00 Test Item Value Reference Range Interpretation Comments POC-GLUCOSE METER 212 mg/dL 70-110 H TESTED AT [facility] 6720 ([facility]) (test code = [place] [facility] 1538) [address] [id number] 12:34:00 Test Item Value Reference Range Interpretation Comments RPR SCREEN (MADIE) (test code = Nonreactive Nonreactive 420) CLOSTRIDIUM DIFFICILE TOXIN [id number] 10:12:00 Test Item Value Reference Range Interpretation Comments CLOSTRIDIUM DIFFICILE TOXIN, PCR Not Detected Not Detected ([facility]) (test code = 1525) This qualitative [...] Reference Range Change-Adult onlyNew: 60.0-150.0 Previous: 50.0-150.0POCT-GLUCOSE [id number] 06:40:00 Test Item Value Reference Range Interpretation Comments POC-GLUCOSE METER 167 mg/dL 70-110 H TESTED AT [facility] 6720 (AKER) (test code = [place] 1538) [address] COMPREHENSIVE METABOLIC [id number] 04:08:00 Test Item Value Reference Range Interpretation [...] ESTIM ATED GFR. Specimen slightly ictericHEPATIC FUNCTION [id number] 04:06:00 Test Item Value Reference Range Interpretation [...] 1091 U/L 6-55 H 347) Specimen slightly [id number] 04:01:00 Test Item Value Reference Range Interpretation Comments FIBRINOGEN LEVEL (BEAKER) (test 379 mg/dl 225-434 code = 658) [id number] 04:01:00 Test Item Value Reference Range Interpretation Comments PARTIAL THROMBOPLASTIN TIME 40.7 seconds 22.5-36.0 H (BEAKER) (test code = 760) PROTHROMBIN [id number] 04:00:00 Test Item Value Reference Range Interpretation [...] L 0.00-0.20 (test code = 417) 0.00POCT-GLUCOSE [id number] 00:19:00 Test Item Value Reference Range Interpretation Comments POC-GLUCOSE METER 159 mg/dL 70-110 H TESTED AT [facility] 67 [facility] (test code = [facility] 1538) [address] POCT-GLUCOSE [id number] 18:56:00 Test Item Value Reference Range Interpretation Comments POC-GLUCOSE METER 192 mg/dL 70-110 H TESTED AT [place] [address] ([facility]) (test code = [facility] 1538) [address] COMPREHENSIVE METABOLIC [id number] 16:55:00 Test Item Value Reference Range Interpretation [...] CALCULATE ESTIM ATED GFR. Specimen slightly ictericPROTHROMBIN TIME/[id number] 16:37:00 Test Item Value Reference Range Interpretation Comments PROTIME (BEAKER) (test code = 20.9 seconds 11.7-14.7 H 759) INR (BEAKER) (test code = 370) 1.8 <=5.9 RECOMMENDED COUMADIN/WARFARIN INR THERAPY RANGESSTANDARD DOSE: 2.0 - 3.0 Includes: PROPHYLAXIS forvenous thrombosis, systemic embolization; TREATMENT for venous thrombosis and/or pulmonary embolus.HIGH RISK: Target INR is 2.5-3.5 for patients with mechanical heart valves.HEPATITIS B SURFACE [id number] 14:05:00 Test Item Value Reference Range Interpretation Comments HEPATITIS B SURFACE ANTIBODY < mIU/mL <8.0 (BEAKER) (test code = 647) HEPATITIS B CORE ANTIBODY, [id number] 13:43:00 Test Item Value Reference Range Interpretation Comments HEPATITIS B CORE TOTAL ANTIBODY Nonreactive Nonreactive (BEAKER) (test code = 497) BLOOD GAS, [id number] 13:35:00 Test Item Value Reference Range Interpretation [...] code = 1819) 28.0 % URINALYSIS W/ [id number] 13:16:00 Test Item Value Reference Range Interpretation [...] 1584) SOURCE(BEAKER) (test code = Urine, [place] 2929) VITAMIN D, 63-[id number] 13:14:00 Test Item Value Reference Range Interpretation Comments VITAMIN D 25-OH (BEAKER) (test code = < ng/mL 13.0-47.8 L 2764) ALPHA FETOPROTEIN (AFP), TUMOR [id number] 13:06:00 Test Item Value Reference Range Interpretation Comments ALPHA-FETOPROTEIN (BEAKER) (test code < ng/mL <10.0 = 1094) Effective 05/08/2014: Reference Range ChangeNew: <10.0 Previous: 0.0-8.0 HEMOGLOBIN [id number] 13:05:00 Test Item Value Reference Range Interpretation Comments HEMOGLOBIN A1C (BEAKER) (test code = 7.6 % 4.3-6.1 H 368) CARCINOEMBRYONIC ANTIGEN (CEA)2017-01-03 12:59:00 Test Item Value Reference Range Interpretation Comments CARCINOEMBRYONIC ANTIGEN (BEAKER) 2.0 ng/mL 0.0-5.0 (test code = 685) [id number] 12:59:00 Test Item Value Reference Range Interpretation Comments FERRITIN (BEAKER) (test code = 1841 ng/mL 5-275 H 361) Effective 05/08/2014: Reference Range ChangeNew: Male 5-275 Previous: Male 22-322 Female 5-275 Female [id number] 12:58:00 Test Item Value Reference Range Interpretation Comments T4 TOTAL (BEAKER) (test code = 895) 4.5 ug/dL 4.9-11.7 L [id number] 12:58:00 Test Item Value Reference Range Interpretation Comments THYROID STIMULATING HORMONE 1.79 uIU/mL 0.35-4.94 (BEAKER) (test code = 772) [id number] 12:58:00 Test Item Value Reference Range Interpretation Comments T3 TOTAL (BEAKER) (test code = 656) 34 ng/dL 48-159 L Effective 05/08/2014: Reference Range ChangeNew: 48-159 Previous: 60-181 CALCIUM, [id number] 12:47:00 Test Item Value Reference Range Interpretation Comments CALCIUM IONIZED (BEAKER) (test 1.05 mmol/L 1.12-1.27 L code = 698) PH, BLOOD (BEAKER) (test code = 7.43 1810) [id number] 12:42:00 Test Item Value Reference Range Interpretation [...] % 20-55 (test code = 2590) URIC [id number] 12:40:00 Test Item Value Reference Range Interpretation Comments URIC ACID (BEAKER) (test code = 16.0 mg/dL 2.6-7.2 H 773) Specimen slightly ictericLIPID [id number] 12:40:00 Test Item Value Reference Range Interpretation [...] 160-189 Very High >=190 Specimen slightly ictericBILIRUBIN, [id number] 12:40:00 Test Item Value Reference Range Interpretation Comments BILIRUBIN DIRECT (BEAKER) (test 2.4 mg/dL 0.1-0.5 H code = 706) GAMMA GLUTAMYL TRANSFERASE (GGT)2017-01-03 12:40:00 Test Item Value Reference Range Interpretation Comments GAMMA GLUTAMYL TRANSFERASE (BEAKER) 53 U/L 9-64 (test code = 364) Specimen slightly [id number] 12:39:00 Test Item Value Reference Range Interpretation Comments ETHANOL (BEAKER) (test code = 400) < mg/dL <=10 SCREEN, [id number] 12:36:00 Test Item Value Reference Range Interpretation Comments TEST URINE (BEAKER) (test Negative code = 583) POCT-GLUCOSE [id number] 12:34:00 Test Item Value Reference Range Interpretation Comments POC-GLUCOSE METER 189 mg/dL 70-110 H TESTED AT [facility] 6720 (BEAKER) (test code = [place] 1538) [address] HIV-1 ANTIGEN WITH HIV-1/2 [id number] 11:58:00 Test Item Value Reference Range Interpretation Comments HIV-1 ANTIGEN WITH HIV 1\\T\\2 Nonreactive Nonreactive ANTIBODY (2) (BEAKER) (test code = 2586) TROPONIN [id number] 09:44:00 Test Item Value Reference Range Interpretation [...] Previous: 0.0-4.9CK-MB Reference Range:<6.7 Normal6.7-10.0 Borderline>10.0 AbnormalACETAMINOPHEN [id number] 08:31:00 Test Item Value Reference Range Interpretation Comments ACETAMINOPHEN LEVEL (BEAKER) (test < ug/mL 10.0-30.0 L code = 344) TROPONIN [id number] 05:53:00 Test Item Value Reference Range Interpretation [...] acute neurological disease, and persistent tachyarrhythmia.BASIC METABOLIC [id number] 05:53:00 Test Item Value Reference Range Interpretation [...] TO CALCULA TE ESTIMATED GFR. Specimen slightly ldzsxzzENHUWIZTEG7733-94-01 05:52:00 Test Item Value Reference Range Interpretation Comments PHOSPHORUS (BEAKER) (test code = 5.7 mg/dL 2.3-4.7 H 604) HEPATIC FUNCTION [id number] 05:52:00 Test Item Value Reference Range Interpretation [...] Specimen slightly ictericCREATINE KINASE (CK), TOTAL AND [id number] 05:52:00 Test Item Value Reference Range Interpretation Comments CREATINE KINASE TOTAL (BEAKER) 341 U/L 29-200 H (test code = 380) CREATINE KINASE-MB (BEAKER) (test 5.4 ng/mL 0.0-6.6 code = 750) CREATINE KINASE-MB INDEX (BEAKER) 1.6 % (test code = 395) Effective 05/08/2014: CK-MB Reference Range ChangeNew: 0.0-6.6 Previous: 0.0-4.9CK-MB Reference Range:<6.7 Normal6.7-10.0 Borderline>10.0 AbnormalCBC W/PLT COUNT & AUTO [id number] 05:48:00 Test Item Value Reference Range Interpretation [...] K/ L 0.00-0.20 (test code = 417) 0.80WHLPIYHKHU4159-90-35 05:09:00 Test Item Value Reference Range Interpretation Comments FIBRINOGEN LEVEL (BEAKER) (test 427 mg/dl 225-434 code = 658) [id number] 05:09:00 Test Item Value Reference Range Interpretation Comments PARTIAL THROMBOPLASTIN TIME 36.2 seconds 22.5-36.0 H (BEAKER) (test code = 760) PROTHROMBIN TIME/[id number] 05:08:00 Test Item Value Reference Range Interpretation Comments PROTIME (BEAKER) (test code = 22.8 seconds 11.7-14.7 H 759) INR (BEAKER) (test code = 370) 2.0 <=5.9 RECOMMENDED COUMADIN/WARFARIN INR THERAPY RANGESSTANDARD DOSE: 2.0 - 3.0 Includes: PROPHYLAXIS forvenous thrombosis, systemic embolization; TREATMENT for venous thrombosis and/or pulmonary embolus.HIGH RISK: Target INR is 2.5-3.5 for patients with mechanical heart valves.HEPATITIS PANEL, [id number] 03:40:00 Test Item Value Reference Range Interpretation Comments HEPATITIS A IGM ANTIBODY (BEAKER) Nonreactive Nonreactive (test code = 498) HEPATITIS B CORE IGM ANTIBODY Nonreactive Nonreactive (BEAKER) (test code = 645) HEPATITIS C ANTIBODY (BEAKER) Nonreactive Nonreactive (test code = 367) HEPATITIS B SURFACE ANTIGEN (2) Nonreactive Nonreactive (BEAKER) (test code = 2585) CREATININE, RANDOM [id number] 03:18:00 Test Item Value Reference Range Interpretation Comments CREATININE URINE (BEAKER) (test 118.7 mg/dL code = 375) Reference Range: No NormalsSODIUM, RANDOM [id number] 03:18:00 Test Item Value Reference Range Interpretation Comments SODIUM URINE (BEAKER) (test code = 60 meq/L 243) Reference Range: No NormalsUREA NITROGEN, RANDOM [id number] 03:18:00 Test Item Value Reference Range Interpretation Comments UREA NITROGEN URINE (BEAKER) (test 303 mg/dL code = 538) Reference Range: No [id number] 03:07:00 Test Item Value Reference Range Interpretation Comments AMMONIA (BEAKER) (test code = 348) 48 mol/L 18-72 [id number]-[id number] 02:57:00 Test Item Value Reference Range Interpretation [...] within 95-100% range. URINALYSIS W/ REFLEX URINE [id number] 02:53:00 Test Item Value Reference Range Interpretation [...] = 514) SOURCE(BEAKER) (test code = 2795) [id number] 02:49:00 Test Item Value Reference Range Interpretation Comments PARTIAL THROMBOPLASTIN TIME 39.4 seconds 22.5-36.0 H (BEAKER) (test code = 760) PROTHROMBIN TIME/[id number] 02:48:00 Test Item Value Reference Range Interpretation Comments PROTIME (BEAKER) (test code = 22.0 seconds 11.7-14.7 H 759) INR (BEAKER) (test code = 370) 1.9 <=5.9 RECOMMENDED COUMADIN/WARFARIN INR THERAPY RANGESSTANDARD DOSE: 2.0 - 3.0 Includes: PROPHYLAXIS forvenous thrombosis, systemic embolization; TREATMENT for venous thrombosis and/or pulmonary embolus.HIGH RISK: Target INR is 2.5-3.5 for patients with mechanical heart valves.[id number] 02:48:00 Test Item Value Reference Range Interpretation Comments FIBRINOGEN LEVEL (BEAKER) (test 421 mg/dl 225-434 code = 658) BLOOD GAS, [id number] 02:43:00 Test Item Value Reference Range Interpretation [...] 21.0 % CBC W/PLT COUNT & AUTO [id number] 02:43:00 Test Item Value Reference Range Interpretation [...] code = 417) 0.00LACTIC ACID, VENOUS, WHOLE [id number] 02:35:00 Test Item Value Reference Range Interpretation Comments LACTATE BLOOD VENOUS (2) (BEAKER) 0.8 mmol/L 0.5-2.2 (test code = 2872) Effective 10/23/2015: Units/Reference Range ChangeNew: 0.5-2.2 mmol/L Previous: 5-20 mg/dLSpecimen slightly [id number] 11:32:00 Test Item Value Reference Range Interpretation Comments AGAP (test code = AGAP) 14.6 10.0-20.0 [id number] 11:32:00 Test Item Value Reference Range Interpretation Comments eGFR (test code = eGFR) 33 [facility]WqfnkvgTYBIXFCTHZIZ4092-76-20 11:32:00 Test Item Value Reference Range Interpretation Comments Calcium Lvl (test code = Calcium Lvl) 8.3 8.5-10.5 [facility] Center[id number] 11:32:00 Test Item Value Reference Range Interpretation Comments Glucose Lvl (test code = Glucose Lvl) 81 70-99 [facility] Center[id number] 11:32:00 Test Item Value Reference Range Interpretation Comments Creatinine Lvl (test code = Creatinine 1.95 0.50-1.40 Lvl) [facility] Center[id number] 11:32:00 Test Item Value Reference Range Interpretation Comments BUN (test code = BUN) 55 7-22 [facility] Center[id number] 11:32:00 Test Item Value Reference Range Interpretation Comments CO2 (test code = CO2) 19 24-32 [facility] CenterAlhbatlDNQGPEVLTQJR1828-61-14 11:32:00 Test Item Value Reference Range Interpretation Comments Chloride Lvl (test code = Chloride Lvl) 110 95-109 [facility] CenterLiqhlriDKJHCSOOOJPG4914-42-68 11:32:00 Test Item Value Reference Range Interpretation Comments Sodium Lvl (test code = Sodium Lvl) 139 135-145 [facility]OjxgtnvNRXQFSRMBQVD4375-45-43 11:32:00 Test Item Value Reference Range Interpretation Comments Potassium Lvl (test code = Potassium 4.6 3.5-5.1 Lvl) [facility]QlskeygRPMSOHOTQX6429-03-06 11:32:00 Test Item Value Reference Range Interpretation Comments Lymphocytes (test code = Lymphocytes) 30.4 20.0-40.0 [facility] HospitalZmsbzzdAIOTLUSAOC3154-91-79 11:32:00 Test Item Value Reference Range Interpretation Comments Eosinophils (test code = 4.5 See_Comment [A utomated message] The Eosinophils) system which ge nerated this result tra nsmitted reference range : <=4.0. The reference r leo was not used to int erpret this result as normal/abnormal . [facility] HospitalRdzogvaVYQJCIRGYG3210-22-95 11:32:00 Test Item Value Reference Range Interpretation Comments Monocytes (test code = Monocytes) 13.7 2.0-12.0 [facility] HospitalSdozfkwEIPNWBVKKV5462-89-65 11:32:00 Test Item Value Reference Range Interpretation Comments Segs-Bands # (test code = Segs-Bands #) 2.6 1.5-8.1 [facility] HospitalMxvkfcpGAIASHCJUH4759-09-91 11:32:00 Test Item Value Reference Range Interpretation Comments Basophils (test code = 0.7 See_Comment [Aut omated message] The Basophils) system which ge nerated this result tra nsmitted reference range : <=1.0. The reference r leo was not used to int erpret this result as normal/abnormal . [facility] HospitalNpjlmkoXIGFTIFXAX9898-24-74 11:32:00 Test Item Value Reference Range Interpretation Comments Monocytes # (test code 0.7 See_Comment [Aut omated message] The = Monocytes #) system which generated this result tra nsmitted reference range : <=0.8. The reference r leo was not used to int erpret this result as normal/abnormal . [facility] HospitalEejjjdwRLLGCKWKUD1359-94-43 11:32:00 Test Item Value Reference Range Interpretation Comments Lymphocytes # (test code = Lymphocytes 1.6 1.0-5.5 #) [facility] Hospit[id number] 11:32:00 Test Item Value Reference Range Interpretation Comments Eosinophils # (test code 0.2 See_Comment [A utomated message] The = Eosinophils #) system [employer] generated this result tra nsmitted reference range : <=0.5. The reference r leo was not used to int erpret this result as normal/abnormal . [facility] HospitalFhnizjrPMKBWSMRNZ5129-04-35 11:32:00 Test Item Value Reference Range Interpretation Comments Segs (test code = Segs) 50.7 45.0-75.0 [facility] HospitalClbzmwiIXQZDPMNVG3526-46-07 11:32:00 Test Item Value Reference Range Interpretation [...] iron deficiency anemia, and renal disease. CPT: 47701 [facility] HospitalJytqkevHTFSOEQYTP6478-00-61 11:32:00 Test Item Value Reference Range Interpretation Comments Hct (test code = Hct) 28.1 36.0-48.0 [facility] HospitalXdqgalgLVQRXPMYXE0191-13-84 11:32:00 Test Item Value Reference Range Interpretation Comments RBC (test code = RBC) 3.39 4.20-5.40 [facility] HospitalPjetylnMLHMDEGCSG5963-18-49 11:32:00 Test Item Value Reference Range Interpretation Comments Hgb (test code = Hgb) 8.9 12.0-16.0 [facility] HospitalNdgbdojPNNLMSHYOT0150-14-73 11:32:00 Test Item Value Reference Range Interpretation Comments WBC (test code = WBC) 5.1 3.7-10.4 [facility] HospitalIotsflwLIEOXEJGXE0874-19-20 11:32:00 Test Item Value Reference Range Interpretation Comments MPV (test code = MPV) 11.3 7.4-10.4 [facility] HospitalFimxnmmESZMCGPUAB8724-73-68 11:32:00 Test Item Value Reference Range Interpretation Comments Platelet (test code = Platelet) 118 133-450 [facility] HospitalIhyitblBOWVRLHRAW9343-43-59 11:32:00 Test Item Value Reference Range Interpretation Comments MCHC (test code = MCHC) 31.8 32.0-36.0 [facility] HospitalJkpipguEKAPTIBBSS8606-59-14 11:32:00 Test Item Value Reference Range Interpretation Comments RDW (test code = RDW) 18.0 11.5-14.5 [facility] HospitalDzjcoddQWWPIMWOND8587-00-55 11:32:00 Test Item Value Reference Range Interpretation Comments MCV (test code = MCV) 83.0 80.0-98.0 [facility] HospitalUagtqfySRJDYNYKEC9334-63-63 11:32:00 Test Item Value Reference Range Interpretation Comments MCH (test code = MCH) 26.4 pg 27.0-31.0 [facility]GolrgmmQGLGXAQFQH4352-58-66 11:32:00 Test Item Value Reference Range Interpretation Comments C3 Complement (test code = C3 137 88-201 Complement) [facility] CenterWjedcqpVVCSVLRBJO8898-31-66 11:32:00 Test Item Value Reference Range Interpretation Comments HIV. (test code = Negative *NA*(07/30/16 HIV.) 5:32 AM) [facility] HospitalFxwchsnEJQNGHIMNT8428-15-78 11:05:00 Test Item Value Reference Range Interpretation [...] iron deficiency anemia, and renal disease. CPT: 41769 [facility] CenterGjnjpldROZKCOTJXM6052-36-35 11:05:00 Test Item Value Reference Range Interpretation Comments HIV. (test code = Negative *NA*(07/29/16 HIV.) 5:05 AM) [facility] CenterPilpsvhAAJZJJDHZI1521-07-89 11:05:00 Test Item Value Reference Range Interpretation Comments C3 Complement (test code = C3 92 88-201 Complement) [facility]2017-02-07 15:50:00 Test Item Value Reference Range Interpretation Comments eGFR (test code = eGFR) 25 [facility]2017-02-07 15:50:00 Test Item Value Reference Range Interpretation Comments BUN (test code = BUN) 55 7-22 [facility]2017-02-07 15:50:00 Test Item Value Reference Range Interpretation Comments CO2 (test code = CO2) 23 24-32 [facility]2017-02-07 15:50:00 Test Item Value Reference Range Interpretation Comments Chloride Lvl (test code = Chloride Lvl) 109 95-109 [facility]2017-02-07 15:50:00 Test Item Value Reference Range Interpretation Comments Glucose Lvl (test code = Glucose Lvl) 101 70-99 [facility]2017-02-07 15:50:00 Test Item Value Reference Range Interpretation Comments Potassium Lvl (test code = Potassium 4.0 3.5-5.1 Lvl) [facility]2017-02-07 15:50:00 Test Item Value Reference Range Interpretation Comments Sodium Lvl (test code = Sodium Lvl) 141 135-145 [facility]2017-02-07 15:50:00 Test Item Value Reference Range Interpretation Comments AGAP (test code = AGAP) 13.0 10.0-20.0 [facility]2017-02-07 15:50:00 Test Item Value Reference Range Interpretation Comments Calcium Lvl (test code = Calcium Lvl) 7.7 8.5-10.5 [facility]2017-02-07 15:50:00 Test Item Value Reference Range Interpretation Comments Creatinine Lvl (test code = Creatinine 2.49 0.50-1.40 Lvl) [facility] HospitalMzesokiPYJZMTIRLU3778-55-53 15:50:00 Test Item Value Reference Range Interpretation Comments PT (test code = PT) 14.8 s 12.0-14.7 [facility] HospitalKehnzztGFOUOZJLUW4698-18-49 15:50:00 Test Item Value Reference Range Interpretation Comments PTT (test code = PTT) 40.8 s 22.9-35.8 [facility] HospitalDvjdfubAGZRFTLMYZ4713-62-56 15:50:00 Test Item Value Reference Range Interpretation Comments INR (test code = INR) 1.14 0.85-1.17 [facility]nt[facility]tnWBCGJHCHWI8128-17-19 15:50:00 Test Item Value Reference Range Interpretation Comments C3 Complement (test code = C3 94 88-201 Complement) [facility] HospitalSbdgyduIOIWIYSODR6905-30-22 10:35:00 Test Item Value Reference Range Interpretation Comments Lymphocytes # (test code = Lymphocytes 1.7 1.0-5.5 #) [facility] HospitalLgbwzzdOUHRYOBVBZ2043-40-80 10:35:00 Test Item Value Reference Range Interpretation Comments Segs-Bands # (test code = Segs-Bands #) 2.7 1.5-8.1 [facility] HospitalNuitqgxGCSCLFFECT5881-71-10 10:35:00 Test Item Value Reference Range Interpretation Comments Eosinophils # (test code 0.1 See_Comment [A utomated message] The = Eosinophils #) system wh h generated this result tra nsmitted reference range : <=0.5. The reference r leo was not used to int erpret this result as normal/abnormal . [facility] HospitalLuvqqprOWOWPDOLLA2871-04-28 10:35:00 Test Item Value Reference Range Interpretation Comments Monocytes # (test code 0.7 See_Comment [Aut omated message] The = Monocytes #) system which generated this result tra nsmitted reference range : <=0.8. The reference r leo was not used to int erpret this result as normal/abnormal . [facility] HospitalPgroedxXJTMQYVIWP8683-15-89 10:35:00 Test Item Value Reference Range Interpretation Comments Segs (test code = Segs) 51.3 45.0-75.0 [facility] HospitalLwxmlmbOCRFOTQKYP8363-03-23 10:35:00 Test Item Value Reference Range Interpretation Comments Lymphocytes (test code = Lymphocytes) 31.6 20.0-40.0 [facility] HospitalVbbhdzaCCGCMOOSAL3864-36-16 10:35:00 Test Item Value Reference Range Interpretation Comments Monocytes (test code = Monocytes) 14.1 2.0-12.0 [facility] HospitalZrvjpjsYWBDAHJLUQ5170-26-24 10:35:00 Test Item Value Reference Range Interpretation Comments Eosinophils (test code = 2.6 See_Comment [A utomated message] The Eosinophils) system which ge nerated this result tra nsmitted reference range : <=4.0. The reference r leo was not used to int erpret this result as normal/abnormal . [facility] HospitalXzzwzrtVZJESFLTYG0799-90-06 10:35:00 Test Item Value Reference Range Interpretation Comments Basophils (test code = 0.4 See_Comment [Aut omated message] The Basophils) system which ge nerated this result tra nsmitted reference range : <=1.0. The reference r leo was not used to int erpret this result as normal/abnormal . [facility] HospitalUiawaogVCOXYYGUGK2455-43-37 10:35:00 Test Item Value Reference Range Interpretation Comments PB Smear Path Peripheral blood smear shows (test code = PB hypochromic normocytic Smear Path) anemia with anisopoikilocytsosis, no increase in schistocytes, slight polychromasia, a few estella cells, moderate thrombocytopenia. Impression: (1) no evidence of microangiopathic hemolysis, (2) RBC morphology is suggestive of anemia of chronic disease or iron deficiency anemia, and renal disease. CPT: 39148 [facility] HospitalQxgbshiARRWZQMLQF9408-03-61 10:35:00 Test Item Value Reference Range Interpretation Comments Hct (test code = Hct) 29.3 36.0-48.0 [place] [address]1996-02-07 10:35:00 Test Item Value Reference Range Interpretation Comments Hgb (test code = Hgb) 9.2 12.0-16.0 [place] [address]-02-07 10:35:00 Test Item Value Reference Range Interpretation Comments RBC (test code = RBC) 3.54 4.20-5.40 [facility] HospitalEnqryjvTELEMBJELR3640-82-69 10:35:00 Test Item Value Reference Range Interpretation Comments WBC (test code = WBC) 5.3 3.7-10.4 [facility] HospitalNrkhxbdBTUDOWPGJG0553-63-72 10:35:00 Test Item Value Reference Range Interpretation Comments Platelet (test code = Platelet) 87 133-450 [facility] HospitalIweakunRNHFCHJVBC7041-67-89 10:35:00 Test Item Value Reference Range Interpretation Comments MCHC (test code = MCHC) 31.4 32.0-36.0 [facility] HospitalGflzuovXYVYUVMQXE8448-66-73 10:35:00 Test Item Value Reference Range Interpretation Comments RDW (test code = RDW) 17.9 11.5-14.5 [facility] HospitalXxogpvcIIGVSQRFJP4026-25-98 10:35:00 Test Item Value Reference Range Interpretation Comments MPV (test code = MPV) 10.9 7.4-10.4 [facility] HospitalNjgxyjiVEUPKOIKAN2209-68-16 10:35:00 Test Item Value Reference Range Interpretation Comments MCH (test code = MCH) 26.0 pg 27.0-31.0 [facility] HospitalWfogwrpCVIPWBRVLV9476-63-91 10:35:00 Test Item Value Reference Range Interpretation Comments MCV (test code = MCV) 82.8 80.0-98.0 [facility]IgzjusoIWFFAATQYA9245-42-28 10:35:00 Test Item Value Reference Range Interpretation Comments HIV. (test code = Negative *NA*(07/28/16 HIV.) 4:35 AM) [facility] [facility] [id number] 10:22:00 Test Item Value Reference Range Interpretation Comments Total CK (test code = Total CK) 190 12-191 [facility]2017-02-06 10:22:00 Test Item Value Reference Range Interpretation Comments Calcium Lvl (test code = Calcium Lvl) 7.8 8.5-10.5 [facility]2017-02-06 10:22:00 Test Item Value Reference Range Interpretation Comments CO2 (test code = CO2) 21 24-32 [facility]2017-02-06 10:22:00 Test Item Value Reference Range Interpretation Comments Sodium Lvl (test code = Sodium Lvl) 140 135-145 [facility]2017-02-06 10:22:00 Test Item Value Reference Range Interpretation Comments Potassium Lvl (test code = Potassium 3.8 3.5-5.1 Lvl) [facility]2017-02-06 10:22:00 Test Item Value Reference Range Interpretation Comments Chloride Lvl (test code = Chloride Lvl) 106 95-109 [facility]2017-02-06 10:22:00 Test Item Value Reference Range Interpretation Comments Bili Total (test code = Bili Total) 0.4 0.2-1.3 [facility]2017-02-06 10:22:00 Test Item Value Reference Range Interpretation Comments Alk Phos (test code = Alk Phos) 74 39-136 [facility]2017-02-06 10:22:00 Test Item Value Reference Range Interpretation Comments eGFR (test code = eGFR) 19 [facility]2017-02-06 10:22:00 Test Item Value Reference Range Interpretation Comments Total Protein (test code = Total 5.2 6.4-8.4 Protein) [facility]2017-02-06 10:22:00 Test Item Value Reference Range Interpretation Comments ALT (test code = ALT) 822 See_Comment [Auto mated message] The system which ge nerated this result transmit rohit reference range : <=65. The reference range was not used to interpr et this result as reji l/abnormal. [facility]2017-02-06 10:22:00 Test Item Value Reference Range Interpretation Comments AST (test code = AST) 205 See_Comment [Auto mated message] The system which ge nerated this result transmit rohit reference range : <=37. The reference range was not used to interpr et this result as reji l/abnormal. [facility]2017-02-06 10:22:00 Test Item Value Reference Range Interpretation Comments Albumin Lvl (test code = Albumin Lvl) 1.8 3.5-5.0 [facility]2017-02-06 10:22:00 Test Item Value Reference Range Interpretation Comments BUN (test code = BUN) 54 7-22 [facility]2017-02-06 10:22:00 Test Item Value Reference Range Interpretation Comments Glucose Lvl (test code = Glucose Lvl) 143 70-99 [facility]2017-02-06 10:22:00 Test Item Value Reference Range Interpretation Comments Creatinine Lvl (test code = Creatinine 3.11 0.50-1.40 Lvl) [facility]2017-02-06 10:22:00 Test Item Value Reference Range Interpretation Comments B/C Ratio (test code = B/C Ratio) 17 6-25 [facility]2017-02-06 10:22:00 Test Item Value Reference Range Interpretation Comments AGAP (test code = AGAP) 16.8 10.0-20.0 [facility]2017-02-06 10:22:00 Test Item Value Reference Range Interpretation Comments Globulin (test code = Globulin) 3.4 2.7-4.2 [facility]2017-02-06 10:22:00 Test Item Value Reference Range Interpretation Comments A/G Ratio (test code = A/G Ratio) 0.5 0.7-1.6 [facility]2017-02-06 10:22:00 Test Item Value Reference Range Interpretation Comments Magnesium Lvl (test code = Magnesium 2.0 1.8-2.4 Lvl) [facility]2017-02-06 10:22:00 Test Item Value Reference Range Interpretation Comments Phosphorus (test code = Phosphorus) 3.7 2.5-4.5 [id number] 10:22:00 Test Item Value Reference Range Interpretation Comments RDW (test code = RDW) 17.7 11.5-14.5 [facility] HospitalFwgmxerUDUYNXMXVU1460-47-26 10:22:00 Test Item Value Reference Range Interpretation Comments MCHC (test code = MCHC) 32.9 32.0-36.0 [facility] Hos[id number] 10:22:00 Test Item Value Reference Range Interpretation Comments Hct (test code = Hct) 25.4 36.0-48.0 [facility] HospitalFyfrvqxNBFQBCPCQB7146-18-70 10:22:00 Test Item Value Reference Range Interpretation Comments MCH (test code = MCH) 26.4 pg 27.0-31.0 [facility] HospitalCblcrihSFVLFQCDSX1329-08-44 10:22:00 Test Item Value Reference Range Interpretation Comments MCV (test code = MCV) 80.3 80.0-98.0 [facility] HospitalMqicydnJXPNNLICTR0612-09-17 10:22:00 Test Item Value Reference Range Interpretation Comments MPV (test code = MPV) 11.4 7.4-10.4 [facility] HospitalJncxeekYZVBYJPRMF9061-20-45 10:22:00 Test Item Value Reference Range Interpretation Comments Platelet (test code = Platelet) 74 133-450 [facility] HospitalGkxhuaqZIJPWYREPF1013-00-02 10:22:00 Test Item Value Reference Range Interpretation Comments RBC (test code = RBC) 3.16 4.20-5.40 [facility] HospitalUcfznduDMPOZCFQDV5328-28-42 10:22:00 Test Item Value Reference Range Interpretation Comments WBC (test code = WBC) 5.3 3.7-10.4 [facility] HospitalNmytbfwVCTLXKSKWZ7298-96-73 10:22:00 Test Item Value Reference Range Interpretation Comments Hgb (test code = Hgb) 8.4 12.0-16.0 [facility] HospitalQzfhtcdBUVEDTWXMA7184-32-82 10:22:00 Test Item Value Reference Range Interpretation Comments Monocytes (test code = Monocytes) 14.5 2.0-12.0 [facility] HospitalNwountvHHCIKCQEHK9014-27-82 10:22:00 Test Item Value Reference Range Interpretation Comments Lymphocytes (test code = Lymphocytes) 29.8 20.0-40.0 [facility] HospitalLfonqimJUGYDOZUVP0468-47-53 10:22:00 Test Item Value Reference Range Interpretation Comments Eosinophils # (test code 0.1 See_Comment [A utomated message] The = Eosinophils #) system whic h generated this result tra nsmitted reference range : <=0.5. The reference r leo was not used to int erpret this result as normal/abnormal . [facility] HospitalEcwhskeHGJPZLAXDE3672-58-78 10:22:00 Test Item Value Reference Range Interpretation Comments Monocytes # (test code 0.8 See_Comment [Aut omated message] The = Monocytes #) system which generated this result tra nsmitted reference range : <=0.8. The reference r leo was not used to int erpret this result as normal/abnormal . [facility] HospitalRxqtiwgQQCFOEMBAI6588-70-63 10:22:00 Test Item Value Reference Range Interpretation Comments Segs-Bands # (test code = Segs-Bands #) 2.9 1.5-8.1 [facility] HospitalGdzcmgyPMJTBEXZRJ7469-66-65 10:22:00 Test Item Value Reference Range Interpretation Comments Lymphocytes # (test code = Lymphocytes 1.6 1.0-5.5 #) [facility] HospitalSaqozalHKMMGAVHRN1554-84-37 10:22:00 Test Item Value Reference Range Interpretation Comments Basophils (test code = 0.4 See_Comment [Aut omated message] The Basophils) system which ge nerated this result tra nsmitted reference range : <=1.0. The reference r leo was not used to int erpret this result as normal/abnormal . [facility] HospitalIolwsuvQGVYAJKJIR0792-24-92 10:22:00 Test Item Value Reference Range Interpretation Comments Eosinophils (test code = 1.2 See_Comment [A utomated message] The Eosinophils) system which ge nerated this result tra nsmitted reference range : <=4.0. The reference r leo was not used to int erpret this result as normal/abnormal . [facility] HospitalLtpbzalDLSLELOPOY5894-79-42 10:22:00 Test Item Value Reference Range Interpretation Comments Segs (test code = Segs) 54.1 45.0-75.0 [facility] [id number] 10:22:00 Test Item Value Reference Range Interpretation Comments Hgb A1C (test code = Hgb A1C) 8.9 [facility] [id number] 17:40:00 Test Item Value Reference Range Interpretation Comments Total CK (test code = Total CK) 344 12-191 [facility]VzexfxkQJQDPWIMCB0757-78-37 17:40:00 Test Item Value Reference Range Interpretation Comments IVETTE (test code = IVETTE) Positive *ABN*(07/26/16 11:40 AM) [facility]landEfnbzcpUODLAEYOWF9211-05-23 17:40:00 Test Item Value Reference Range Interpretation Comments 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 [facility]landStiimebTFANPGPPZD9576-64-31 17:40:00 Test Item Value Reference Range Interpretation Comments SS-B (La) Ab (test code = SS-B (La) Ab) no gt [facility]landXcayftcUNNTDCEDKM9743-54-89 17:40:00 Test Item Value Reference Range Interpretation Comments SS-A (Ro) Ab (test code = SS-A (Ro) Ab) no gt [facility] DmmqocpIXCBVLTNUE6558-97-70 17:40:00 Test Item Value Reference Range Interpretation Comments DNA Ab (DS) (test Negative (07/26/16 11:40 code = DNA Ab (DS)) AM) [facility]landYpqwwljVOQKTPFNQP3159-53-07 17:40:00 Test Item Value Reference Range Interpretation Comments IVETTE Titer (test code = 1:40 *ABN*(07/26/16 IVETTE Titer) 11:40 AM) [facility]UR[facility] [id number] 17:40:00 Test Item Value Reference Range Interpretation Comments U Sodium (test code = U Sodium) 21 [facility]landKqrztkuDZEBTBMRVN1185-17-61 14:00:00 Test Item Value Reference Range Interpretation Comments INR (test code = INR) 1.11 0.85-1.17 [facility]landEfawkotMXFQNHRMON8270-84-64 14:00:00 Test Item Value Reference Range Interpretation Comments PT (test code = PT) 14.5 s 12.0-14.7 [facility]landVkegujeQHYTGQAFEC4120-10-28 14:00:00 Test Item Value Reference Range Interpretation Comments Hep A IgM (test code Negative *NA*(07/26/16 = Hep A IgM) 8:00 AM) [facility] RegionalYhchojpLLAWCGCDFW3860-73-18 14:00:00 Test Item Value Reference Range Interpretation Comments Hep B Core IgM (test Negative *NA*(07/26/16 code = Hep B Core 8:00 AM) IgM) [facility]SEXSQP9807[facility]57[facility]76 14:00:00 Test Item Value Reference Range Interpretation Comments Hep C Ab (test code = Negative *NA*(07/26/16 Hep C Ab) 8:00 AM) [facility] CenterXuhwhwbRFZEFATQAG0685-57-06 14:00:00 Test Item Value Reference Range Interpretation Comments Hep Bs Ag (test code Negative *NA*(07/26/16 = Hep Bs Ag) 8:00 AM) [facility]2017-02-05 10:42:00 Test Item Value Reference Range Interpretation Comments B/C Ratio (test code = B/C Ratio) 17 6-25 [facility]2017-02-05 10:42:00 Test Item Value Reference Range Interpretation Comments ALT (test code = ALT) 1232 See_Comment [Auto mated message] The system which ge nerated this result transmit rohit reference range : <=65. The reference range was not used to interpr et this result as reji l/abnormal. [facility]2017-02-05 10:42:00 Test Item Value Reference Range Interpretation Comments A/G Ratio (test code = A/G Ratio) 0.5 0.7-1.6 [facility]2017-02-05 10:42:00 Test Item Value Reference Range Interpretation Comments Bili Total (test code = Bili Total) 0.3 0.2-1.3 [facility]2017-02-05 10:42:00 Test Item Value Reference Range Interpretation Comments Alk Phos (test code = Alk Phos) 79 39-136 [facility]2017-02-05 10:42:00 Test Item Value Reference Range Interpretation Comments AST (test code = AST) 586 See_Comment [Auto mated message] The system which ge nerated this result transmit rohit reference range : <=37. The reference range was not used to interpr et this result as reji l/abnormal. [facility] [id number] 10:42:00 Test Item Value Reference Range Interpretation Comments Total Protein (test code = Total 5.5 6.4-8.4 Protein) [facility] [id number] 10:42:00 Test Item Value Reference Range Interpretation Comments Globulin (test code = Globulin) 3.7 2.7-4.2 [facility] [id number] 10:42:00 Test Item Value Reference Range Interpretation Comments Albumin Lvl (test code = Albumin Lvl) 1.8 3.5-5.0 [facility] [id number] 10:42:00 Test Item Value Reference Range Interpretation Comments Magnesium Lvl (test code = Magnesium 2.1 1.8-2.4 Lvl) [facility] HospitalNcyqtthMIKGYXPQLH6528-67-32 10:42:00 Test Item Value Reference Range Interpretation Comments Acanthocyte (test code = Acanthocyte) Slight [facility] HospitalDyxliwtELKIXJHFQO8074-36-65 10:42:00 Test Item Value Reference Range Interpretation Comments Rouleaux (test code = Present *ABN*(07/26/16 Rouleaux) 4:42 AM) [facility] RegionalPgcyjusNZUNMCKNQO6689-30-26 10:42:00 Test Item Value Reference Range Interpretation Comments Anisocyte (test code = 1+ *ABN*(07/26/16 4:42 Anisocyte) AM) [facility] HospitalOncpfkfYAETMELSNO6826-57-66 10:42:00 Test Item Value Reference Range Interpretation Comments Basophils # (test code 0.1 See_Comment [Aut omated message] The = Basophils #) system which generated this result tra nsmitted reference range : <=0.2. The reference r leo was not used to int erpret this result as normal/abnormal . [facility] RegionalAlauimbTDDASZGZLK1153-98-49 10:42:00 Test Item Value Reference Range Interpretation Comments Large Plt (test code Moderate *ABN*(07/26/16 = Large Plt) 4:42 AM) [facility] RegionalUqsinmyHXAUGLYUNG9725-33-74 10:42:00 Test Item Value Reference Range Interpretation Comments C4 Complement (test code = C4 42 16-47 Complement) [facility] AND [id number] 16:34:00 Test Item Value Reference Range Interpretation Comments UA Sq Epi (test code = UA Sq Epi) None Seen [facility] AND [id number] 16:34:00 Test Item Value Reference Range Interpretation Comments UA Waxy Cast (test code = UA Waxy Cast) [address] [facility] AND [id number] 16:34:00 Test Item Value Reference Range Interpretation Comments UA Hyal Cast (test 4 See_Comment [Automat ed message] The code = UA Hyal Cast) system which generated this result transmit rohit reference range : <=2. The reference range was not used to interpr et this result as reji l/abnormal. [facility] AND [id number] 16:34:00 Test Item Value Reference Range Interpretation Comments UA Bacteria (test code = UA Occasional /HPF Bacteria) [facility] AND [id number] 16:34:00 Test Item Value Reference Range Interpretation Comments UA Mucus (test code = UA Mucus) Few /LPF [facility] AND [id number] 16:34:00 Test Item Value Reference Range Interpretation Comments UA Amorph Destiny (test code = Occasional /HPF UA Amorph Destiny) [facility] AND [id number] 16:34:00 Test Item Value Reference Range Interpretation Comments UA Leuk Est (test Negative (07/25/16 10:34 code = UA Leuk Est) AM) [facility] AND [id number] 16:34:00 Test Item Value Reference Range Interpretation Comments UA Nitrite (test code Negative (07/25/16 10:34 = UA Nitrite) AM) [facility] AND [id number] 16:34:00 Test Item Value Reference Range Interpretation Comments UA RBC (test code = 2 See_Comment [Automa rohit message] The UA RBC) system which ge nerated this result transmit rohit reference range : <=2. The reference range was not used to interpr et this result as reji l/abnormal. [facility] AND [id number] 16:34:00 Test Item Value Reference Range Interpretation Comments UA WBC (test code = 6 See_Comment [Automa rohit message] The UA WBC) system which ge nerated this result transmit rohit reference range : <=5. The reference range was not used to interpr et this result as reji l/abnormal. [facility] AND [id number] 16:34:00 Test Item Value Reference Range Interpretation Comments UA Urobilinogen (test code = UA 2.0 0.1-1.0 Urobilinogen) [facility] AND [id number] 16:34:00 Test Item Value Reference Range Interpretation Comments UA Ketones (test code = UA Negative mg/dL Ketones) [facility] AND [id number] 16:34:00 Test Item Value Reference Range Interpretation Comments UA Glucose (test code = UA Glucose) 70 mg/dL [facility] AND [id number] 16:34:00 Test Item Value Reference Range Interpretation Comments UA Blood (test code = Negative (07/25/16 10:34 UA Blood) AM) [facility] AND [id number] 16:34:00 Test Item Value Reference Range Interpretation Comments UA Bili (test code = Negative *NA*(07/25/16 UA Bili) 10:34 AM) [facility] AND [id number] 16:34:00 Test Item Value Reference Range Interpretation Comments UA Protein (test code = UA >=300 mg/dL Protein) [facility] AND [id number] 16:34:00 Test Item Value Reference Range Interpretation Comments UA Spec Grav (test code = UA Spec Grav) 1.[address] [facility] AND [id number] 16:34:00 Test Item Value Reference Range Interpretation Comments UA pH (test code = UA pH) 5.5 5.0-8.[address] [facility] AND [id number] 16:34:00 Test Item Value Reference Range Interpretation Comments UA Turbidity (test code Slight *ABN*(07/25/16 = UA Turbidity) 10:34 AM) [facility] AND [id number] 16:34:00 Test Item Value Reference Range Interpretation Comments UA Color (test code = Dark Yellow *NA*(07/25/16 UA Color) 10:34 AM) [facility] AND [id number] 16:34:00 Test Item Value Reference Range Interpretation Comments UA Gran Cast (test code = UA Gran Cast) [address] [facility] [id number] 16:34:00 Test Item Value Reference Range Interpretation Comments U Sodium (test code = U Sodium) [address] [facility] [id number] 16:34:00 Test Item Value Reference Range Interpretation Comments U Prot/Creat (test code = U Prot/Creat) 3.[address] [facility] [id number] 16:34:00 Test Item Value Reference Range Interpretation Comments U Protein (test code = U Protein) 420.[address] [facility] [id number] 16:34:00 Test Item Value Reference Range Interpretation Comments U Creatinine (test code = U 136.00 Creatinine) [facility] [id number] 08:55:00 Test Item Value Reference Range Interpretation Comments Magnesium Lvl (test code = Magnesium 2.0 1.8-2.4 Lvl) [facility] [id number] 08:55:00 Test Item Value Reference Range Interpretation Comments Phosphorus (test code = Phosphorus) 5.2 2.5-4.5 [facility] RegionalPodio [id number] 17:29:00 Test Item Value Reference Range Interpretation Comments Troponin-I (test code 0.28 See_Comment [Auto mated message] The = Troponin-I) system which g enerated this result transmit rohit reference range : <=0.40. The reference r leo was not used to interpr et this result as reji l/abnormal. [facility]2017-02-03 17:29:00 Test Item Value Reference Range Interpretation Comments Total CK (test code = Total CK) 2616 12-191 [facility]2017-[facility] 17:29:00 Test Item Value Reference Range Interpretation Comments Troponin-T (test code 0.144 See_Comment [Auto mated message] The = Troponin-T) system which g enerated this result transmit rohit reference range : <=0.100. The reference r leo was not used to interpr et this result as reji l/abnormal. [facility]2017-02-03 17:29:00 Test Item Value Reference Range Interpretation Comments CK MB Index (test 0.2 See_Comment [Automate d message] The code = CK MB Index) system w [facility] generated this result transmit rohit reference range : <=2.5. The reference range was not used to interpr et this result as reji l/abnormal. [facility]2017-02-03 17:29:00 Test Item Value Reference Range Interpretation Comments CK MB (test code = CK MB) 6.3 0.5-3.6 [facility]2017-02-03 11:20:00 Test Item Value Reference Range Interpretation Comments Troponin-I (test code 0.38 See_Comment [Auto mated message] The = Troponin-I) system which g enerated this result transmit rohit reference range : <=0.40. The reference r leo was not used to interpr et this result as reji l/abnormal. [facility]2017-02-03 11:20:00 Test Item Value Reference Range Interpretation Comments Troponin-T (test code 0.173 See_Comment [Auto mated message] The = Troponin-T) system which g enerated this result transmit rohit reference range : <=0.100. The reference r leo was not used to interpr et this result as reji l/abnormal. [facility]2017-02-03 11:20:00 Test Item Value Reference Range Interpretation Comments CK MB Index (test 0.2 See_Comment [Automate d message] The code = CK MB Index) system w [facility] generated this result transmit rohit reference range : <=2.5. The reference range was not used to interpr et this result as reji l/abnormal. [facility]2017-02-03 11:20:00 Test Item Value Reference Range Interpretation Comments CK MB (test code = CK MB) 5.6 0.5-3.6 [facility] [employer] [id number] 11:20:00 Test Item Value Reference Range Interpretation Comments Phosphorus (test code = Phosphorus) 5.5 2.5-4.5 [facility]2017-02-03 06:18:00 Test Item Value Reference Range Interpretation Comments BNP (test code = BNP) 701 [facility]2017-02-03 04:59:27 Test Item Value Reference Range Interpretation Comments Troponin-I (test code 0.57 See_Comment [Auto mated message] The = Troponin-I) system which g enerated this result transmit rohit reference range : <=0.40. The reference r leo was not used to interpr et this result as reji l/abnormal. [facility]2016-12-26 10:22:00 Test Item Value Reference Range Interpretation Comments BNP (test code = BNP) 526 [facility]2016-12-26 10:22:00 Test Item Value Reference Range Interpretation Comments Magnesium Lvl (test code = Magnesium 2.1 1.8-2.4 Lvl) [facility]2016-12-26 10:22:00 Test Item Value Reference Range Interpretation Comments Glucose Lvl (test code = Glucose Lvl) 117 70-99 [facility]2016-12-26 10:22:00 Test Item Value Reference Range Interpretation Comments BUN (test code = BUN) 41 7-22 [facility]2016-12-26 10:22:00 Test Item Value Reference Range Interpretation Comments Creatinine Lvl (test code = Creatinine 2.00 0.50-1.40 Lvl) [facility] [facility]:00 Test Item Value Reference Range Interpretation Comments Calcium Lvl (test code = Calcium Lvl) 9.0 8.5-10.5 [facility]2016-12-26 10:22:00 Test Item Value Reference Range Interpretation Comments Chloride Lvl (test code = Chloride Lvl) 102 95-109 [facility]2016-12-26 10:22:00 Test Item Value Reference Range Interpretation Comments CO2 (test code = CO2) 33 24-32 [facility]2016-12-26 10:22:00 Test Item Value Reference Range Interpretation Comments Sodium Lvl (test code = Sodium Lvl) 144 135-145 [facility]2016-12-26 10:22:00 Test Item Value Reference Range Interpretation Comments Potassium Lvl (test code = Potassium 4.0 3.5-5.1 Lvl) [facility]2016-12-26 10:22:00 Test Item Value Reference Range Interpretation Comments eGFR (test code = eGFR) 32 [facility]2016-12-26 10:22:00 Test Item Value Reference Range Interpretation Comments AGAP (test code = AGAP) 13.0 10.0-20.0 [facility]2016-12-26 10:22:00 Test Item Value Reference Range Interpretation Comments Phosphorus (test code = Phosphorus) 4.6 2.5-4.5 [facility] 10:22:00 Test Item Value Reference Range Interpretation Comments RBC (test code = RBC) 3.68 4.20-5.40 [facility]MshlbcyWHODNFEATB0990-93-58 10:22:00 Test Item Value Reference Range Interpretation Comments Hgb (test code = Hgb) 9.9 12.0-16.0 [facility] HospitalAkzrsvuTZQIFFNSBA6780-00-76 10:22:00 Test Item Value Reference Range Interpretation Comments MCH (test code = MCH) 26.8 pg 27.0-31.0 [facility] HospitalZdmtamwZJFFTYLERB5529-81-53 10:22:00 Test Item Value Reference Range Interpretation Comments MCHC (test code = MCHC) 34.2 32.0-36.0 [facility] HospitalXtnvlleZSBQSXOVTA1799-01-95 10:22:00 Test Item Value Reference Range Interpretation Comments MCV (test code = MCV) 78.3 80.0-98.0 [facility] HospitalYmdbxsxZKJQLYQXKC6888-88-83 10:22:00 Test Item Value Reference Range Interpretation Comments Hct (test code = Hct) 28.8 36.0-48.0 [facility] HospitalObmjgqkTLKHFPQFOA2681-08-19 10:22:00 Test Item Value Reference Range Interpretation Comments Platelet (test code = Platelet) 191 133-450 [facility] HospitalTgjnmafHNUFSMWUCW8643-06-34 10:22:00 Test Item Value Reference Range Interpretation Comments MPV (test code = MPV) 9.5 7.4-10.4 [facility] HospitalVaozylyEWQSZZBOGB9177-75-41 10:22:00 Test Item Value Reference Range Interpretation Comments RDW (test code = RDW) 15.3 11.5-14.5 [facility] HospitalKizgyrmNXZRVTFRVU1779-46-81 10:22:00 Test Item Value Reference Range Interpretation Comments WBC (test code = WBC) 5.6 3.7-10.4 [facility] HospitalHcvspdnUJUCDSJBVU3579-48-88 10:22:00 Test Item Value Reference Range Interpretation Comments Eosinophils # (test code 0.5 See_Comment [A utomated message] The = Eosinophils #) system whic h generated this result tra nsmitted reference range : <=0.5. The reference r leo was not used to int erpret this result as normal/abnormal . [facility] HospitalXzgoofuUDUFVVBCDT2981-85-99 10:22:00 Test Item Value Reference Range Interpretation Comments Microcyte (test code = 1+ *ABN*(06/15/16 Microcyte) 4:22 AM) [facility] HospitalUevgoteUHYFAPNFIL8226-45-28 10:22:00 Test Item Value Reference Range Interpretation Comments Basophils # (test code 0.1 See_Comment [Aut omated message] The = Basophils #) system which generated this result tra nsmitted reference range : <=0.2. The reference r leo was not used to int erpret this result as normal/abnormal . [facility] HospitalArbvjrnGZSIZIJBDD1575-73-77 10:22:00 Test Item Value Reference Range Interpretation Comments Lymphocytes (test code = Lymphocytes) 33.5 20.0-40.0 [facility] HospitalXtjeyydTMFOFQQWEC0248-70-90 10:22:00 Test Item Value Reference Range Interpretation Comments Segs (test code = Segs) 47.6 45.0-75.0 [facility] HospitalUnsjwfrYMQOAGGIRH1152-66-84 10:22:00 Test Item Value Reference Range Interpretation Comments Monocytes (test code = Monocytes) 8.4 2.0-12.0 [facility] HospitalLuemlqtBUKZONBNHH2267-63-21 10:22:00 Test Item Value Reference Range Interpretation Comments Eosinophils (test code = 9.4 See_Comment [A utomated message] The Eosinophils) system which ge nerated this result tra nsmitted reference range : <=4.0. The reference r leo was not used to int erpret this result as normal/abnormal . [facility] HospitalVjlohizNVMXUCSMUP2023-94-01 10:22:00 Test Item Value Reference Range Interpretation Comments Segs-Bands # (test code = Segs-Bands #) 2.6 1.5-8.1 [facility] HospitalAgtzsqxVISOPFSENH7741-00-03 10:22:00 Test Item Value Reference Range Interpretation Comments Lymphocytes # (test code = Lymphocytes 1.9 1.0-5.5 #) [facility] HospitalCztkfesABSRNBJRHU7118-99-30 10:22:00 Test Item Value Reference Range Interpretation Comments Basophils (test code = 1.1 See_Comment [Aut omated message] The Basophils) system which ge nerated this result tra nsmitted reference range : <=1.0. The reference r leo was not used to int erpret this result as normal/abnormal . [facility] HospitalLdjjmmrLICEDCRKYK5076-39-90 10:22:00 Test Item Value Reference Range Interpretation Comments Monocytes # (test code 0.5 See_Comment [Aut omated message] The = Monocytes #) system which generated this result tra nsmitted reference range : <=0.8. The reference r leo was not used to int erpret this result as normal/abnormal . [facility]2016-12-25 11:03:00 Test Item Value Reference Range Interpretation Comments Phosphorus (test code = Phosphorus) 4.8 2.5-4.5 [facility]2016-12-25 11:03:00 Test Item Value Reference Range Interpretation Comments Magnesium Lvl (test code = Magnesium 2.0 1.8-2.4 Lvl) [facility]2016-12-25 11:03:00 Test Item Value Reference Range Interpretation Comments eGFR (test code = eGFR) 32 [facility]2016-12-25 11:03:00 Test Item Value Reference Range Interpretation Comments Chloride Lvl (test code = Chloride Lvl) 101 95-109 [facility]2016-12-25 11:03:00 Test Item Value Reference Range Interpretation Comments Potassium Lvl (test code = Potassium 4.4 3.5-5.1 Lvl) [facility]2016-12-25 11:03:00 Test Item Value Reference Range Interpretation Comments BUN (test code = BUN) 37 7-22 [facility]2016-12-25 11:03:00 Test Item Value Reference Range Interpretation Comments Glucose Lvl (test code = Glucose Lvl) 119 70-99 [facility]2016-12-25 11:03:00 Test Item Value Reference Range Interpretation Comments Creatinine Lvl (test code = Creatinine 2.00 0.50-1.40 Lvl) [facility]2016-12-25 11:03:00 Test Item Value Reference Range Interpretation Comments Sodium Lvl (test code = Sodium Lvl) 142 135-145 [facility]2016-12-25 11:03:00 Test Item Value Reference Range Interpretation Comments Calcium Lvl (test code = Calcium Lvl) 8.7 8.5-10.5 [facility]2016-12-25 11:03:00 Test Item Value Reference Range Interpretation Comments CO2 (test code = CO2) 32 24-32 [facility]2016-12-25 11:03:00 Test Item Value Reference Range Interpretation Comments AGAP (test code = AGAP) 13.4 10.0-20.0 [facility] HospitalByqxcjyCXNHJQUQCV5672-68-23 11:03:00 Test Item Value Reference Range Interpretation Comments Eosinophils (test code = 10.3 See_Comment [A utomated message] The Eosinophils) system which ge nerated this result tra nsmitted reference range : <=4.0. The reference r leo was not used to int erpret this result as normal/abnormal . [facility] HospitalWxsrtbaLQLXXJXHVR5545-11-51 11:03:00 Test Item Value Reference Range Interpretation Comments Basophils # (test code 0.1 See_Comment [Aut omated message] The = Basophils #) system which generated this result tra nsmitted reference range : <=0.2. The reference r leo was not used to int erpret this result as normal/abnormal . [facility] HospitalVdhbhhsKEOCDEIGDW1242-59-59 11:03:00 Test Item Value Reference Range Interpretation Comments Eosinophils # (test code 0.5 See_Comment [A utomated message] The = Eosinophils #) system whic h generated this result tra nsmitted reference range : <=0.5. The reference r leo was not used to int erpret this result as normal/abnormal . [facility] HospitalKenhqbjZCPPEIKBCN7658-41-10 11:03:00 Test Item Value Reference Range Interpretation Comments Monocytes # (test code 0.5 See_Comment [Aut omated message] The = Monocytes #) system which generated this result tra nsmitted reference range : <=0.8. The reference r leo was not used to int erpret this result as normal/abnormal . [facility] HospitalJenrbynCUCLPPYYBU2062-49-15 11:03:00 Test Item Value Reference Range Interpretation Comments Segs-Bands # (test code = Segs-Bands #) 2.1 1.5-8.1 [facility] HospitalWaeyrrfCTCNPURHQG5665-85-59 11:03:00 Test Item Value Reference Range Interpretation Comments Basophils (test code = 1.2 See_Comment [Aut omated message] The Basophils) system which ge nerated this result tra nsmitted reference range : <=1.0. The reference r leo was not used to int erpret this result as normal/abnormal . [facility] HospitalTwmilgoCXESUYDTEI5767-02-95 11:03:00 Test Item Value Reference Range Interpretation Comments Lymphocytes # (test code = Lymphocytes 1.9 1.0-5.5 #) [facility] HospitalRbennplAZQLEWIHIR8886-63-58 11:03:00 Test Item Value Reference Range Interpretation Comments Segs (test code = Segs) 42.5 45.0-75.0 [facility] HospitalZyhjisbWRWLPWERZK5220-93-25 11:03:00 Test Item Value Reference Range Interpretation Comments Lymphocytes (test code = Lymphocytes) 37.0 20.0-40.0 [facility] HospitalKzbkdoxGSDAARPNPZ5180-19-75 11:03:00 Test Item Value Reference Range Interpretation Comments Monocytes (test code = Monocytes) 9.0 2.0-12.0 [facility] HospitalCaswxlfRUNRVQORXJ5831-17-21 11:03:00 Test Item Value Reference Range Interpretation Comments MPV (test code = MPV) 9.8 7.4-10.4 [facility] HospitalHzmgifvYEZCVMIWZC4430-43-43 11:03:00 Test Item Value Reference Range Interpretation Comments WBC (test code = WBC) 5.0 3.7-10.4 [facility] HospitalJhkfihcYHQSTURTBA5911-46-45 11:03:00 Test Item Value Reference Range Interpretation Comments RBC (test code = RBC) 3.57 4.20-5.40 [facility] HospitalPyxrjmaXKHQYLVPFF3436-30-46 11:03:00 Test Item Value Reference Range Interpretation Comments Hgb (test code = Hgb) 9.4 12.0-16.0 [facility] HospitalMqbuzxpXFBBZSSIXV7234-93-22 11:03:00 Test Item Value Reference Range Interpretation Comments Hct (test code = Hct) 28.5 36.0-48.0 [facility] HospitalCkkpktvAMBLSBCDJZ4691-63-05 11:03:00 Test Item Value Reference Range Interpretation Comments Platelet (test code = Platelet) 183 133-450 [facility] HospitalOunhiumXKAQXURTWH2924-12-99 11:03:00 Test Item Value Reference Range Interpretation Comments MCV (test code = MCV) 79.9 80.0-98.0 [facility] HospitalFayavctTWJHGLIXUV2909-80-18 11:03:00 Test Item Value Reference Range Interpretation Comments MCH (test code = MCH) 26.3 pg 27.0-31.0 [facility] HospitalYjgqbwdAIDSHECRFD7129-08-26 11:03:00 Test Item Value Reference Range Interpretation Comments MCHC (test code = MCHC) 33.0 32.0-36.0 [facility] HospitalJqgvogeJAFGVELQTO9045-42-54 11:03:00 Test Item Value Reference Range Interpretation Comments RDW (test code = RDW) 15.9 11.5-14.5 [facility]2016-12-24 10:26:00 Test Item Value Reference Range Interpretation Comments U Prot/Creat (test code = U Prot/Creat) 6.9 [facility]2016-12-24 10:26:00 Test Item Value Reference Range Interpretation Comments U Creatinine (test code = U Creatinine) 19.30 [facility]2016-12-24 10:26:00 Test Item Value Reference Range Interpretation Comments U Protein (test code = U Protein) 133.1 [facility] HospitalPstauuaTECFATXSBR3696-63-37 09:20:00 Test Item Value Reference Range Interpretation Comments MPV (test code = MPV) 9.7 7.4-10.4 [facility] HospitalLqbmoaqXCFKJFEFZT9110-61-58 09:20:00 Test Item Value Reference Range Interpretation Comments Platelet (test code = Platelet) 184 133-450 [facility] HospitalWvifjzrMUXIKJPXWQ5857-76-00 09:20:00 Test Item Value Reference Range Interpretation Comments RDW (test code = RDW) 15.9 11.5-14.5 [facility] HospitalCshisozNYWMFCRKMY2860-63-31 09:20:00 Test Item Value Reference Range Interpretation Comments MCV (test code = MCV) 79.3 80.0-98.0 [facility] HospitalWvftrbfDXGVIGLXAI6838-82-97 09:20:00 Test Item Value Reference Range Interpretation Comments MCHC (test code = MCHC) 33.0 32.0-36.0 [facility] HospitalBofwozkLYNTSWOVPN1709-88-55 09:20:00 Test Item Value Reference Range Interpretation Comments MCH (test code = MCH) 26.2 pg 27.0-31.0 [facility] HospitalVpiojdqKHPGIGDGWI3076-99-80 09:20:00 Test Item Value Reference Range Interpretation Comments Hct (test code = Hct) 29.4 36.0-48.0 [facility] HospitalDlghpsjLCRUDAGBBN5615-20-99 09:20:00 Test Item Value Reference Range Interpretation Comments Hgb (test code = Hgb) 9.7 12.0-16.0 [facility] HospitalQetyzfzUGXAQHLARI4336-73-39 09:20:00 Test Item Value Reference Range Interpretation Comments RBC (test code = RBC) 3.70 4.20-5.40 [facility] HospitalOmcidwuXVFZUDZUEC5848-07-60 09:20:00 Test Item Value Reference Range Interpretation Comments WBC (test code = WBC) 5.7 3.7-10.4 [facility] HospitalFrjoljpIEMGLGYATL7784-38-61 09:20:00 Test Item Value Reference Range Interpretation Comments Basophils # (test code 0.1 See_Comment [Aut omated message] The = Basophils #) system which generated this result tra nsmitted reference range : <=0.2. The reference r leo was not used to int erpret this result as normal/abnormal . [facility] HospitalLtczrawERVWPDNFIC5848-90-71 09:20:00 Test Item Value Reference Range Interpretation Comments Lymphocytes # (test code = Lymphocytes 2.2 1.0-5.5 #) [facility] HospitalWjsaylbVMFAIMFOHD6437-65-72 09:20:00 Test Item Value Reference Range Interpretation Comments Eosinophils # (test code 0.5 See_Comment [A utomated message] The = Eosinophils #) system whic h generated this result tra nsmitted reference range : <=0.5. The reference r leo was not used to int erpret this result as normal/abnormal . [facility] HospitalXwytpjaJEHAUGSJAG8149-14-82 09:20:00 Test Item Value Reference Range Interpretation Comments Monocytes # (test code 0.5 See_Comment [Aut omated message] The = Monocytes #) system which generated this result tra nsmitted reference range : <=0.8. The reference r leo was not used to int erpret this result as normal/abnormal . [facility] HospitalZsnsihtDPTATHHWCQ1518-28-31 09:20:00 Test Item Value Reference Range Interpretation Comments Basophils (test code = 1.1 See_Comment [Aut omated message] The Basophils) system which ge nerated this result tra nsmitted reference range : <=1.0. The reference r leo was not used to int erpret this result as normal/abnormal . [facility] HospitalXltqsxuNGTBEBWMSY5342-47-11 09:20:00 Test Item Value Reference Range Interpretation Comments Segs-Bands # (test code = Segs-Bands #) 2.3 1.5-8.1 [place] [id number] 09:20:00 Test Item Value Reference Range Interpretation Comments Eosinophils (test code = 9.5 See_Comment [A utomated message] The Eosinophils) system which ge nerated this result tra nsmitted reference range : <=4.0. The reference r leo was not used to int erpret this result as normal/abnormal . [facility] HospitalKpwkgorWDIWXCASCF2478-93-31 09:20:00 Test Item Value Reference Range Interpretation Comments Monocytes (test code = Monocytes) 9.0 2.0-12.0 [facility] HospitalCddftjjSLVGLJCZMI2866-24-21 09:20:00 Test Item Value Reference Range Interpretation Comments Lymphocytes (test code = Lymphocytes) 38.9 20.0-40.0 [facility] HospitalTavlbzfTJVPIQCZDU4239-90-92 09:20:00 Test Item Value Reference Range Interpretation Comments Segs (test code = Segs) 41.5 45.0-75.0 [facility]2016-12-24 06:34:00 Test Item Value Reference Range Interpretation Comments Magnesium Lvl (test code = Magnesium 1.7 1.8-2.4 Lvl) [facility]2016-12-24 06:34:00 Test Item Value Reference Range Interpretation Comments Phosphorus (test code = Phosphorus) 4.2 2.5-4.5 [facility]KatlejpZZXJUECXXDHY2367-23-87 06:34:00 Test Item Value Reference Range Interpretation Comments AGAP (test code = AGAP) 14.3 10.0-20.0 [facility]KrtnvjdUMHMPHRBYPRB8097-13-52 06:34:00 Test Item Value Reference Range Interpretation Comments eGFR (test code = eGFR) 41 [facility]YeyjwvzHRASRLHHNCPY0722-13-51 06:34:00 Test Item Value Reference Range Interpretation Comments Chloride Lvl (test code = Chloride Lvl) 103 95-109 [facility]ObwxuegTJWGKUUMTUPE2778-20-32 06:34:00 Test Item Value Reference Range Interpretation Comments Calcium Lvl (test code = Calcium Lvl) 8.5 8.5-10.5 [facility]TnpvkmcBNJOIGVLUCAK3877-18-84 06:34:00 Test Item Value Reference Range Interpretation Comments CO2 (test code = CO2) 32 24-32 [facility] CenterRegpwecFEZJMOMFTRNF3383-18-94 06:34:00 Test Item Value Reference Range Interpretation Comments Glucose Lvl (test code = Glucose Lvl) 173 70-99 [facility]PwvigngIVETYFTIZVXQ8093-30-18 06:34:00 Test Item Value Reference Range Interpretation Comments BUN (test code = BUN) 37 7-22 [facility]AejvwwgNSMBWRRKSWWF9026-52-64 06:34:00 Test Item Value Reference Range Interpretation Comments Creatinine Lvl (test code = Creatinine 1.63 0.50-1.40 Lvl) [facility]QhwbxwwSOHIBIIGWRXO4825-25-24 06:34:00 Test Item Value Reference Range Interpretation Comments Potassium Lvl (test code = Potassium 4.3 3.5-5.1 Lvl) [facility]OnxftyfWGBTCXLSJCGC5383-17-88 06:34:00 Test Item Value Reference Range Interpretation Comments Sodium Lvl (test code = Sodium Lvl) 145 135-145 [facility]2016-12-22 16:21:00 Test Item Value Reference Range Interpretation Comments Ammonia (test code = Ammonia) 48.0 [facility]EnxmwjwPDYAOWVYOV7759-84-86 14:56:00 Test Item Value Reference Range Interpretation Comments IVETTE Interp (test code Pattern appears = IVETTE Interp) Nucleolar. [facility]KtycslzSUICVLBVHB7094-35-88 14:56:00 Test Item Value Reference Range Interpretation Comments IVETTE Titer (test code = 1:40 *ABN*(06/11/16 IVETTE Titer) 8:56 AM) [facility]MFBDJIVOAJ4877[facility]-73 14:56:00 Test Item Value Reference Range Interpretation Comments Hep Bs Ag (test code Negative *NA*(06/11/16 = Hep Bs Ag) 8:56 AM) [facility]OrrbhduHUHPAVJOGX4621-03-09 14:56:00 Test Item Value Reference Range Interpretation Comments Hep C Ab (test code = Negative *NA*(06/11/16 Hep C Ab) 8:56 AM) [facility]IupvluyVOYCJUDWUY9361-88-27 14:56:00 Test Item Value Reference Range Interpretation Comments Hep B Core IgM (test Negative *NA*(06/11/16 code = Hep B Core 8:56 AM) IgM) [facility] CenterMcroasoUJIDWILREN5342-60-61 14:56:00 Test Item Value Reference Range Interpretation Comments Hep A IgM (test code Negative *NA*(06/11/16 = Hep A IgM) 8:56 AM) [facility] RegionalTnbxeodYKCLIRRKLZ3223-59-42 14:56:00 Test Item Value Reference Range Interpretation Comments HIV Ag/Ab 4th Gen Negative *NA*(06/11/16 (test code = HIV 8:56 AM) Ag/Ab 4th Gen) [facility]JletcnyXZTMIWTFWO5985-97-16 14:56:00 Test Item Value Reference Range Interpretation Comments IVETTE (test code = IVETTE) Positive *ABN*(06/11/16 8:56 AM) [facility]2016-12-22 10:42:00 Test Item Value Reference Range Interpretation Comments Bili Total (test code = Bili Total) 0.1 0.2-1.3 [facility]2016-12-22 10:42:00 Test Item Value Reference Range Interpretation Comments Total Protein (test code = Total 5.2 6.4-8.4 Protein) [facility]2016-12-22 10:42:00 Test Item Value Reference Range Interpretation Comments Albumin Lvl (test code = Albumin Lvl) 1.6 3.5-5.0 [facility]2016-12-22 10:42:00 Test Item Value Reference Range Interpretation Comments B/C Ratio (test code = B/C Ratio) 20 6-25 [facility]2016-12-22 10:42:00 Test Item Value Reference Range Interpretation Comments Globulin (test code = Globulin) 3.6 2.7-4.2 [facility]2016-12-22 10:42:00 Test Item Value Reference Range Interpretation Comments A/G Ratio (test code = A/G Ratio) 0.4 0.7-1.6 [facility]2016-12-22 10:42:00 Test Item Value Reference Range Interpretation Comments Alk Phos (test code = Alk Phos) 74 39-136 [facility]2016-12-22 10:42:00 Test Item Value Reference Range Interpretation Comments ALT (test code = ALT) 14 See_Comment [Auto mated message] The system which ge nerated this result transmit roiht reference range : <=65. The reference range was not used to interpr et this result as reji l/abnormal. [facility]2016-12-22 10:42:00 Test Item Value Reference Range Interpretation Comments AST (test code = AST) 13 See_Comment [Auto mated message] The system which ge nerated this result transmit rohit reference range : <=37. The reference range was not used to interpr et this result as reji l/abnormal. [facility]bs[facility]dqASDWGUZRWZ0620-[facility]-13 10:42:00 Test Item Value Reference Range Interpretation Comments INR (test code = INR) 1.06 0.85-1.17 [facility]GvycocbIISIGFEIPO1344-81-09 10:42:00 Test Item Value Reference Range Interpretation Comments PT (test code = PT) 14.0 s 12.0-14.7 [facility] HospitalExzqelvFZGWGXYSBS1893-29-20 10:42:00 Test Item Value Reference Range Interpretation Comments PTT (test code = PTT) 36.4 s 22.9-35.8 [facility] [id number] 10:42:00 Test Item Value Reference Range Interpretation Comments Hgb A1C (test code = Hgb A1C) 10.5 [facility] [id number] 02:08:00 Test Item Value Reference Range Interpretation Comments CK MB Index (test 1.8 See_Comment [Automate d message] The code = CK MB Index) system w [facility] generated this result transmit rohit reference range : <=2.5. The reference range was not used to interpr et this result as reji l/abnormal. [facility] [id number] 02:08:00 Test Item Value Reference Range Interpretation Comments CK MB (test code = CK MB) 2.9 0.5-3.6 [facility] [id number] 02:08:00 Test Item Value Reference Range Interpretation Comments Troponin-T (test code 0.061 See_Comment [Auto mated message] The = Troponin-T) system which g enerated this result transmit rohit reference range : <=0.100. The reference r leo was not used to interpr et this result as reji l/abnormal. [facility] [id number] 02:08:00 Test Item Value Reference Range Interpretation Comments Total CK (test code = Total CK) 159 12-191 [facility] [id number] 02:08:00 Test Item Value Reference Range Interpretation Comments Troponin-I (test code no gt See_Comment [Auto mated message] The = Troponin-I) system which g enerated this result transmit rohit reference range : <=0.40. The reference r leo was not used to interpr et this result as reji l/abnormal. [facility]2016-12-22 02:08:00 Test Item Value Reference Range Interpretation Comments Bili Total (test code = Bili Total) 0.2 0.2-1.3 [facility]2016-12-22 02:08:00 Test Item Value Reference Range Interpretation Comments Bili Direct (test code 0.1 See_Comment [Aut omated message] The = Bili Direct) system which generated this result tra nsmitted reference range : <=0.3. The reference r leo was not used to int erpret this result as reji l/abnormal. [facility]2016-12-22 02:08:00 Test Item Value Reference Range Interpretation Comments Bili Indirect (test 0.1 See_Comment [Automa rohit message] The code = Bili Indirect) system which generated this result tra nsmitted reference range : <=1.0. The reference r leo was not used to int erpret this result as normal/abnormal . [facility]2016-12-22 02:08:00 Test Item Value Reference Range Interpretation Comments Total Protein (test code = Total 5.7 6.4-8.4 Protein) [facility]2016-12-22 02:08:00 Test Item Value Reference Range Interpretation Comments A/G Ratio (test code = A/G Ratio) 0.5 0.7-1.6 [place] [id number] 02:08:00 Test Item Value Reference Range Interpretation Comments Albumin Lvl (test code = Albumin Lvl) 1.8 3.5-5.0 [facility]2016-12-22 02:08:00 Test Item Value Reference Range Interpretation Comments Globulin (test code = Globulin) 3.9 2.7-4.2 [place] [id number] 02:08:00 Test Item Value Reference Range Interpretation Comments Alk Phos (test code = Alk Phos) 99 39-136 [facility]2016-12-22 02:08:00 Test Item Value Reference Range Interpretation Comments AST (test code = AST) 21 See_Comment [Auto mated message] The system which ge nerated this result transmit rohit reference range : <=37. The reference range was not used to interpr et this result as reji l/abnormal. [facility] [id number] 02:08:00 Test Item Value Reference Range Interpretation Comments ALT (test code = ALT) 17 See_Comment [Auto mated message] The system which ge nerated this result transmit rohit reference range : <=65. The reference range was not used to interpr et this result as reji l/abnormal. [facility] [id number] 02:08:00 Test Item Value Reference Range Interpretation Comments UDS Note (test code = See Note *NA*(06/10/16 UDS Note) 8:08 PM) [facility] [id number] 02:08:00 Test Item Value Reference Range Interpretation Comments U Propoxyph Scr (test Negative *NA*(06/10/16 code = U Propoxyph Scr) 8:08 PM) [facility] [id number] 02:08:00 Test Item Value Reference Range Interpretation Comments U Opiate Scr (test Negative *NA*(06/10/16 code = U Opiate Scr) 8:08 PM) [facility] [id number] 02:08:00 Test Item Value Reference Range Interpretation Comments U Methadone Scr (test Negative *NA*(06/10/16 code = U Methadone Scr) 8:08 PM) [facility] [id number] 02:08:00 Test Item Value Reference Range Interpretation Comments U Phencyc Scr (test Negative *NA*(06/10/16 code = U Phencyc Scr) 8:08 PM) [facility] [id number] 02:08:00 Test Item Value Reference Range Interpretation Comments U Cannab Scr (test Negative *NA*(06/10/16 code = U Cannab Scr) 8:08 PM) [facility] [id number] 02:08:00 Test Item Value Reference Range Interpretation Comments U Amph Scr (test code Negative *NA*(06/10/16 = U Amph Scr) 8:08 PM) [facility] [id number] 02:08:00 Test Item Value Reference Range Interpretation Comments U Kelly Scr (test code Negative *NA*(06/10/16 = U Kelly Scr) 8:08 PM) [facility] [id number] 02:08:00 Test Item Value Reference Range Interpretation Comments U Benzodia Scr (test Negative *NA*(06/10/16 code = U Benzodia Scr) 8:08 PM) [facility] [id number] 02:08:00 Test Item Value Reference Range Interpretation Comments U Cocaine Scr (test Negative *NA*(06/10/16 code = U Cocaine Scr) 8:08 PM) [facility] [id number] 02:08:00 Test Item Value Reference Range Interpretation Comments LDL (Calculated) (test code = LDL 75 (Calculated)) [id number] 02:08:00 Test Item Value Reference Range Interpretation Comments VLDL (test code = VLDL) 27 [facility]GxvdcjyMRMZGS4162-15-88 02:08:00 Test Item Value Reference Range Interpretation Comments Chol (test code = Chol) 133 [facility] [id number] 02:08:00 Test Item Value Reference Range Interpretation Comments Trig (test code = Trig) 133 [facility] LkcneizCBJWXL3753-76-40 02:08:00 Test Item Value Reference Range Interpretation Comments CHD Risk (test code = CHD Risk) 4.29 3.90-5.80 [facility]landAawesjeVDTVFF0708-14-70 02:08:00 Test Item Value Reference Range Interpretation Comments HDL (test code = HDL) [address] [facility] AND [id number] 02:08:00 Test Item Value Reference Range Interpretation Comments UA Urobilinogen (test code = UA <=1.0 mg/dL 0.1-1.0 Urobilinogen) [facility] AND [id number] 02:08:00 Test Item Value Reference Range Interpretation Comments UA Ketones (test code = UA Negative mg/dL Ketones) [facility] AND [id number] 02:08:00 Test Item Value Reference Range Interpretation Comments UA Glucose (test code = UA Glucose) 300 mg/dL [facility] AND [id number] 02:08:00 Test Item Value Reference Range Interpretation Comments UA Protein (test code = UA >=300 mg/dL Protein) [facility] AND [id number] 02:08:00 Test Item Value Reference Range Interpretation Comments UA pH (test code = UA pH) 6.0 5.0-8.[address] [facility] AND [id number] 02:08:00 Test Item Value Reference Range Interpretation Comments UA Nitrite (test code Negative (06/10/16 8:08 = UA Nitrite) PM) [facility] AND [id number] 02:08:00 Test Item Value Reference Range Interpretation Comments UA Blood (test code = Trace *ABN*(06/10/16 UA Blood) 8:08 PM) [facility] AND [id number] 02:08:00 Test Item Value Reference Range Interpretation Comments UA Bili (test code = Negative *NA*(06/10/16 UA Bili) 8:08 PM) [facility] AND [id number] 02:08:00 Test Item Value Reference Range Interpretation Comments UA Mucus (test code = UA Mucus) Few /LPF [facility] AND [id number] 02:08:00 Test Item Value Reference Range Interpretation Comments UA RBC (test code = 4 See_Comment [Automa rohit message] The UA RBC) system which ge nerated this result transmit rohit reference range : <=2. The reference range was not used to interpr et this result as reji l/abnormal. [facility] AND [id number] 02:08:00 Test Item Value Reference Range Interpretation Comments UA Sq Epi (test code = UA Sq Epi) Few /LPF [facility] AND [id number] 02:08:00 Test Item Value Reference Range Interpretation Comments UA WBC (test code = 5 See_Comment [Automa rohit message] The UA WBC) system which ge nerated this result transmit rohit reference range : <=5. The reference range was not used to interpr et this result as reji l/abnormal. [facility] AND [id number] 02:08:00 Test Item Value Reference Range Interpretation Comments UA Leuk Est (test code Small *ABN*(06/10/16 = UA Leuk Est) 8:08 PM) [facility] AND [id number] 02:08:00 Test Item Value Reference Range Interpretation Comments UA Hyal Cast (test 1 See_Comment [Automat ed message] The code = UA Hyal Cast) system which generated this result transmit rohit reference range : <=2. The reference range was not used to interpr et this result as reji l/abnormal. [facility] [id number] 02:08:00 Test Item Value Reference Range Interpretation Comments UA Spec Grav (test code = UA Spec Grav) 1.[address] [facility] AND [id number] 02:08:00 Test Item Value Reference Range Interpretation Comments UA Color (test code = Yellow *NA*(06/10/16 UA Color) 8:08 PM) [facility] AND [id number] 02:08:00 Test Item Value Reference Range Interpretation Comments UA Turbidity (test code = Clear (06/10/16 8:08 UA Turbidity) PM) [facility] [id number] 02:08:00 Test Item Value Reference Range Interpretation Comments U Preg (test code = U Negative (06/10/16 8:08 Preg) PM) [facility]2016-12-22 02:08:00 Test Item Value Reference Range Interpretation Comments U Protein (test code = U Protein) 375.[address] [facility] [id number] 02:08:00 Test Item Value Reference Range Interpretation Comments U Prot/Creat (test code = U Prot/Creat) 5.[address] [facility] [id number] 02:08:00 Test Item Value Reference Range Interpretation Comments U Creatinine (test code = U Creatinine) 69.80 [facility] [id number] 16:53:00 Test Item Value Reference Range Interpretation Comments BNP (test code = BNP) 1135 [facility] [id number] 16:53:00 Test Item Value Reference Range Interpretation Comments Troponin-I (test code no gt See_Comment [Auto mated message] The = Troponin-I) system which g enerated this result transmit rohit reference range : <=0.40. The reference r leo was not used to interpr et this result as reji l/abnormal. [facility]landALOSKOCHEM [id number] 13:02:00 Test Item Value Reference Range Interpretation Comments Lactic Acid WB (test code = Lactic Acid 0.9 0.5-2.2 WB) [facility] R[id number] 12:29:44 Test Item Value Reference Range Interpretation Comments Valproic Acid Lvl (test code = Valproic 10 50-100 Acid Lvl) [facility]X[id number] 11:21:27 Test Item Value Reference Range Interpretation Comments hCG Tot (test code = hCG Tot) 1 [facility]2015-01-06 11:21:00 Test Item Value Reference Range Interpretation Comments Albumin Lvl (test code = Albumin Lvl) 3.2 3.5-5.0 [facility]2015-01-06 11:21:00 Test Item Value Reference Range Interpretation Comments Total Protein (test code = Total 6.6 6.4-8.4 Protein) [facility]2015-01-06 11:21:00 Test Item Value Reference Range Interpretation Comments Bili Total (test code = Bili Total) 0.6 0.2-1.3 [facility]2015-01-06 11:21:00 Test Item Value Reference Range Interpretation Comments Alk Phos (test code = Alk Phos) 59 39-136 [facility]2015-01-06 11:21:00 Test Item Value Reference Range Interpretation Comments AST (test code = AST) 11 See_Comment [Auto mated message] The system which ge nerated this result transmit rohit reference range : <=37. The reference range was not used to interpr et this result as reji l/abnormal. [facility]2015-01-06 11:21:00 Test Item Value Reference Range Interpretation Comments ALT (test code = ALT) 17 See_Comment [Auto mated message] The system which ge nerated this result transmit rohit reference range : <=65. The reference range was not used to interpr et this result as reji l/abnormal. [facility]2015-01-06 11:21:00 Test Item Value Reference Range Interpretation Comments eGFR (test code = eGFR) 99 [facility]2015-01-06 11:21:00 Test Item Value Reference Range Interpretation Comments Glucose Lvl (test code = Glucose Lvl) 314 70-99 [facility]2015-01-06 11:21:00 Test Item Value Reference Range Interpretation Comments Potassium Lvl (test code = Potassium 3.4 3.5-5.1 Lvl) [place] [id number] 11:21:00 Test Item Value Reference Range Interpretation Comments BUN (test code = BUN) 11 7-22 [facility]2015-01-06 11:21:00 Test Item Value Reference Range Interpretation Comments Creatinine Lvl (test code = Creatinine 0.8 0.5-1.4 Lvl) [facility]2015-01-06 11:21:00 Test Item Value Reference Range Interpretation Comments Sodium Lvl (test code = Sodium Lvl) 134 135-145 [facility]2015-01-06 11:21:00 Test Item Value Reference Range Interpretation Comments Chloride Lvl (test code = Chloride Lvl) 94 95-109 [facility]2015-01-06 11:21:00 Test Item Value Reference Range Interpretation Comments Calcium Lvl (test code = Calcium Lvl) 9.1 8.5-10.5 [facility]2015-01-06 11:21:00 Test Item Value Reference Range Interpretation Comments CO2 (test code = CO2) 24 24-32 [facility]2015-01-06 11:21:00 Test Item Value Reference Range Interpretation Comments A/G Ratio (test code = A/G Ratio) 0.9 0.7-1.6 [facility]2015-01-06 11:21:00 Test Item Value Reference Range Interpretation Comments Globulin (test code = Globulin) 3.4 2.0-4.0 [facility]2015-01-06 11:21:00 Test Item Value Reference Range Interpretation Comments B/C Ratio (test code = B/C Ratio) 14 6-25 [facility]2015-01-06 11:21:00 Test Item Value Reference Range Interpretation Comments AGAP (test code = AGAP) 19.4 10.0-20.0 [facility]2015-01-06 11:21:00 Test Item Value Reference Range Interpretation Comments Lipase Lvl (test code = Lipase Lvl) 81 73-393 [facility] Hospit[id number] 11:21:00 Test Item Value Reference Range Interpretation Comments Large Plt (test code = Large Plt) Slight [facility] HospitalIidekqvEWXLFGVBOP5091-63-72 11:21:00 Test Item Value Reference Range Interpretation Comments Basophils # (test code 0.0 See_Comment [Aut omated message] The = Basophils #) system which generated this result tra nsmitted reference range : <=0.2. The reference r leo was not used to int erpret this result as normal/abnormal . [facility] Hospit[id number] 11:21:00 Test Item Value Reference Range Interpretation Comments Anisocyte (test code = 1+ *ABN*(06/26/14 5:21 Anisocyte) AM) [facility] H[id number] 11:21:00 Test Item Value Reference Range Interpretation Comments Monocytes # (test code 0.6 See_Comment [Aut omated message] The = Monocytes #) system which generated this result tra nsmitted reference range : <=0.8. The reference r leo was not used to int erpret this result as normal/abnormal . [facility] HospitalQynsegyZIEKOUKOXG7807-61-14 11:21:00 Test Item Value Reference Range Interpretation Comments Eosinophils # (test code 0.1 See_Comment [A utomated message] The = Eosinophils #) system whic h generated this result tra nsmitted reference range : <=0.5. The reference r leo was not used to int erpret this result as normal/abnormal . [facility] HospitalNyrffpgFHOTNYDXRX1896-27-35 11:21:00 Test Item Value Reference Range Interpretation Comments Lymphocytes # (test code = Lymphocytes 2.5 1.0-5.5 #) [facility] Hospit[id number] 11:21:00 Test Item Value Reference Range Interpretation Comments Segs (test code = Segs) 63.3 45.0-75.0 [facility] HospitalElssjicBDOIEMHZZV2165-15-31 11:21:00 Test Item Value Reference Range Interpretation Comments Segs-Bands # (test code = Segs-Bands #) 5.6 1.5-8.1 [facility] HospitalPxoqzvaAJGTBTMUQS8347-40-64 11:21:00 Test Item Value Reference Range Interpretation Comments Basophils (test code = 0.0 See_Comment [Aut omated message] The Basophils) system which ge nerated this result tra nsmitted reference range : <=1.0. The reference r leo was not used to int erpret this result as normal/abnormal . [facility] HospitalIofjrhoJJEHVVUFWH3890-04-71 11:21:00 Test Item Value Reference Range Interpretation Comments Eosinophils (test code = 0.9 See_Comment [A utomated message] The Eosinophils) system which ge nerated this result tra nsmitted reference range : <=4.0. The reference r leo was not used to int erpret this result as normal/abnormal . [facility] HospitalMvojbuuJHKBSECIOR5503-10-00 11:21:00 Test Item Value Reference Range Interpretation Comments Monocytes (test code = Monocytes) 7.0 2.0-12.0 [facility] Hos[id number] 11:21:00 Test Item Value Reference Range Interpretation Comments Lymphocytes (test code = Lymphocytes) 28.8 20.0-40.0 [facility] HospitalRsadawsWAHORTQHWU0747-11-30 11:21:00 Test Item Value Reference Range Interpretation Comments WBC (test code = WBC) 8.8 3.7-10.4 [facility] HospitalYszspkeMVTXBQGKQP8325-61-01 11:21:00 Test Item Value Reference Range Interpretation Comments RBC (test code = RBC) 5.19 4.20-5.40 [facility] HospitalAdblhypNMFEQVDHUX4402-07-98 11:21:00 Test Item Value Reference Range Interpretation Comments Hgb (test code = Hgb) 14.4 12.0-16.0 [facility] HospitalHdvnhgjWTJVIDCLLV8753-19-68 11:21:00 Test Item Value Reference Range Interpretation Comments Hct (test code = Hct) 43.1 36.0-48.0 [facility] HospitalSazojynNMBRCXOVOT8910-60-80 11:21:00 Test Item Value Reference Range Interpretation Comments MCV (test code = MCV) 83.1 80.0-98.0 [facility] Hospit[id number] 11:21:00 Test Item Value Reference Range Interpretation Comments MCH (test code = MCH) 27.8 pg 27.0-31.0 [facility] HospitalVllrtaaXOMSZERCLM3907-54-82 11:21:00 Test Item Value Reference Range Interpretation Comments RDW (test code = RDW) 13.1 11.5-14.5 [facility] HospitalDylnjldOCWWRMKSAA7408-40-23 11:21:00 Test Item Value Reference Range Interpretation Comments MCHC (test code = MCHC) 33.5 32.0-36.0 [facility] HospitalUupsnnkUKTHZZKCCU0072-90-10 11:21:00 Test Item Value Reference Range Interpretation Comments Platelet (test code = Platelet) 201 133-450 [facility] HospitalWpbsppvXDEODWMQHM0428-94-49 11:21:00 Test Item Value Reference Range Interpretation Comments MPV (test code = MPV) 10.4 7.4-10.4 [facility]EquhhgpSLBVFMUAMJ4024-72-93 04:48:55 Test Item Value Reference Range Interpretation Comments UA [place] Yeast (test code = UA Occasional /HPF A [place] Yeast) [facility] CenterZsunlbaXCEQLYJWEQ2882-15-96 04:48:55 Test Item Value Reference Range Interpretation Comments UA Mucus (test code = UA Mucus) Few /LPF N [facility] CenterVddtwouYPFYPHATJQ8487-72-17 04:48:55 Test Item Value Reference Range Interpretation Comments UA Sq Epi (test code = UA Sq Moderate /LPF A Epi) [facility] CenterFfyxknsEQYCMDSSQB4454-18-63 04:48:55 Test Item Value Reference Range Interpretation Comments Micro? (test code = Performed (04/14/2013 N Micro?) 23:48:55) [facility] CenterQgvsqbcGCHBQZDFUE8654-28-27 04:48:55 Test Item Value Reference Range Interpretation Comments UA WBC (test code = UA WBC) 0-2 /HPF N [facility] CenterBicmgztTWVERKHGWR1367-74-58 04:48:55 Test Item Value Reference Range Interpretation Comments UA Bacteria (test code = UA Occasional /HPF N Bacteria) [facility] CenterNubbcuaLOHBQXTPKM9955-47-75 04:48:55 Test Item Value Reference Range Interpretation Comments UA Glucose (test code = UA Glucose) 500 mg/dL A [facility] CenterPhlhkbkCKSPNXXXCU6173-53-09 04:48:55 Test Item Value Reference Range Interpretation Comments UA Bili (test code = Negative *NA*(04/14/2013 UA Bili) 23:48:55) [facility] CenterPhzvimlCCXRIXQKRF6445-36-53 04:48:55 Test Item Value Reference Range Interpretation Comments UA Ketones (test code = Trace A UA Ketones) *ABN*(04/14/2013 23:48:55) [facility] CenterXfncgrnBFIUGSAGJD9476-09-43 04:48:55 Test Item Value Reference Range Interpretation Comments UA Blood (test code = Negative (04/14/2013 N UA Blood) 23:48:55) [facility] CenterClmajlkVFNMWTNDYF3020-34-39 04:48:55 Test Item Value Reference Range Interpretation Comments UA Urobilinogen (test code = UA 0.2 0.1-1.0 N Urobilinogen) [facility] CenterFounyffNORWXKOLEE2401-24-48 04:48:55 Test Item Value Reference Range Interpretation Comments UA Nitrite (test code Negative (04/14/2013 N = UA Nitrite) 23:48:55) [facility] CenterZgazyhoVMZDCKHDVA7309-58-55 04:48:55 Test Item Value Reference Range Interpretation Comments UA Leuk Est (test Negative (04/14/2013 N code = UA Leuk Est) 23:48:55) [facility] CenterZowlkcuEBPBPRBOUB1015-28-51 04:48:55 Test Item Value Reference Range Interpretation Comments UA Turbidity (test code = Clear (04/14/2013 N UA Turbidity) 23:48:55) [facility] CenterAcqnqdpZYMCZYMNXI2195-56-08 04:48:55 Test Item Value Reference Range Interpretation Comments UA Color (test code = Yellow *NA*(04/14/2013 UA Color) 23:48:55) [facility] CenterKdnhfydDFUYMCHPPM3512-29-27 04:48:55 Test Item Value Reference Range Interpretation Comments UA pH (test code = UA pH) 7.0 1 5.0-8.0 N [facility]GfsqrclHJFISXHRTP5984-80-69 04:48:55 Test Item Value Reference Range Interpretation Comments UA Spec Grav (test code = UA Spec 1.025 1 N Grav) [facility]ZjbxymwKKSNUHUCZW9764-08-59 04:48:55 Test Item Value Reference Range Interpretation Comments UA Protein (test code = Trace A UA Protein) *ABN*(04/14/2013 23:48:55) [facility]MqodgwoNQTEBQSED6947-37-37 04:28:00 Test Item Value Reference Range Interpretation Comments S Preg (test code = S Negative *NA*(04/14/2013 Preg) 23:28:00) [facility]leLmxsxerAPMZBAXXQ8071-34-90 04:28:00 Test Item Value Reference Range Interpretation Comments Lipase Lvl (test code = Lipase Lvl) 233 73-393 N [facility]leOnbsxrrRDFIDDMKP1389-86-36 04:28:00 Test Item Value Reference Range Interpretation Comments Globulin (test code = Globulin) 4.1 2.0-4.0 H [facility]leUcbtcorQZXTQGOPY3097-19-87 04:28:00 Test Item Value Reference Range Interpretation Comments AGAP (test code = AGAP) 10.5 10.0-20.0 N [facility]leLmpgfqvFUZEIMILM3876-79-78 04:28:00 Test Item Value Reference Range Interpretation Comments B/C Ratio (test code = B/C Ratio) 6 6-25 N [facility]leUvjvcerRWXMVZGJV7285-71-68 04:28:00 Test Item Value Reference Range Interpretation Comments A/G Ratio (test code = A/G Ratio) 0.7 0.7-1.6 N [facility]leSpnzgwvRAYSRCQDL4205-18-99 04:28:00 Test Item Value Reference Range Interpretation Comments eGFR (test code = eGFR) 130 [facility]leMfmiyxvZWITRMNGL6433-67-10 04:28:00 Test Item Value Reference Range Interpretation Comments Albumin Lvl (test code = Albumin Lvl) 2.9 3.5-5.0 L [facility]leKwezmetPJSTAZYBF5967-84-66 04:28:00 Test Item Value Reference Range Interpretation Comments ASPARTATE TRANSAMINASE 20 See_Comment N [Aut omated message] (test code = ASPARTATE The s ystem which TRANSAMINASE) generated this result transmitted ref erence range: <=37. Th e reference range was not used to interpr et this result as normal/abnormal . [facility] AzleShlilchADAZYOGXS4257-49-09 04:28:00 Test Item Value Reference Range Interpretation Comments Bili Total (test code = Bili Total) 0.5 0.2-1.3 N [facility]leMmlyzuaKLCAGNPLO5771-01-59 04:28:00 Test Item Value Reference Range Interpretation Comments Alk Phos (test code = Alk Phos) 89 39-136 N [facility] AzleHwmeqxnDEJKBOPAZ0889-73-28 04:28:00 Test Item Value Reference Range Interpretation Comments ALANINE AMINOTRANSFERASE 11 See_Comment N [A utomated message] (test code = ALANINE The sys tem which AMINOTRANSFERASE) generated this result transmitted ref erence range: <=65. Th e reference range was not used to int erpret this result as normal/abnormal . [facility] AzleRkledhzMZNJEOYTV5387-87-77 04:28:00 Test Item Value Reference Range Interpretation Comments Creatinine Lvl (test code = Creatinine 0.5 0.5-1.4 N Lvl) [facility]leTrozkhaSIKTSULAI8207-36-56 04:28:00 Test Item Value Reference Range Interpretation Comments BUN (test code = BUN) 3 7-22 L [facility] AzleBpnrfpkEVTYTHSMP5598-11-08 04:28:00 Test Item Value Reference Range Interpretation Comments Glucose Lvl (test code = Glucose Lvl) 255 70-99 H [facility] AzleSuildumQYBJGNHAF7266-60-04 04:28:00 Test Item Value Reference Range Interpretation Comments Total Protein (test code = Total 7.0 6.4-8.4 N Protein) [facility]leJzdioboXSHUJPCMI1737-87-47 04:28:00 Test Item Value Reference Range Interpretation Comments Calcium Lvl (test code = Calcium Lvl) 8.7 8.5-10.5 N [facility] AzleZrflfrhFISFJZWVC1776-90-45 04:28:00 Test Item Value Reference Range Interpretation Comments CO2 (test code = CO2) 29 24-32 N [facility]leSpgdofpPEJWWKKWK1071-91-38 04:28:00 Test Item Value Reference Range Interpretation Comments Chloride Lvl (test code = Chloride Lvl) 104 95-109 N [facility]leObrybrpDBMLORPCQ4118-80-39 04:28:00 Test Item Value Reference Range Interpretation Comments Potassium Lvl (test code = Potassium 3.5 3.5-5.1 N Lvl) [facility]leClhlmsfTWLOIVCOY7906-14-60 04:28:00 Test Item Value Reference Range Interpretation Comments Sodium Lvl (test code = Sodium Lvl) 140 135-145 N [facility] HospitalJtqsnvtUOYZIUGMMS7925-98-93 04:28:00 Test Item Value Reference Range Interpretation Comments PROTIME (test code = PROTIME) 12.1 s 12.0-14.7 N [facility] HospitalYdlfuhgXDHKIKSTGV9893-49-89 04:28:00 Test Item Value Reference Range Interpretation Comments aPTT (test code = aPTT) 39.0 s 22.9-35.8 H [facility] HospitalQxduzxiHGNCAEEPSE1731-00-10 04:28:00 Test Item Value Reference Range Interpretation Comments INR (test code = INR) 0.90 0.85-1.17 N [facility] HospitalTxlyzfqEHVLOKHMXE1527-47-76 04:28:00 Test Item Value Reference Range Interpretation Comments MCH (test code = MCH) 29.4 pg 27.0-31.0 N [facility] HospitalFnccoagNRSDWUOHZT9125-45-19 04:28:00 Test Item Value Reference Range Interpretation Comments MCV (test code = MCV) 86.1 81.0-99.0 N [facility] HospitalGlgekkiVOGAEDIQAO6808-44-72 04:28:00 Test Item Value Reference Range Interpretation Comments Hct (test code = Hct) 29.4 36.0-48.0 L [facility] HospitalLruoqncOAXKUAZETT1454-47-66 04:28:00 Test Item Value Reference Range Interpretation Comments RDW (test code = RDW) 14.0 11.5-14.5 N [facility] HospitalKroetxeJDBMFLORYY6106-17-91 04:28:00 Test Item Value Reference Range Interpretation Comments WBC X 10x3 (test code = WBC X 10x3) 6.2 3.7-10.4 N [facility] HospitalLatqpvhAIIFVKTKPJ3762-01-88 04:28:00 Test Item Value Reference Range Interpretation Comments Platelet (test code = Platelet) 178 133-450 N [facility] HospitalXipcqfdYYKTGMLDAW2824-46-91 04:28:00 Test Item Value Reference Range Interpretation Comments MCHC (test code = MCHC) 34.1 32.0-36.0 N [facility] HospitalJkyvbdhDBFHMGWOKQ7972-15-83 04:28:00 Test Item Value Reference Range Interpretation Comments RBC X 10x6 (test code = RBC X 10x6) 3.41 4.20-5.40 L [facility] HospitalEpyzustSYZMJCCPSH1801-24-04 04:28:00 Test Item Value Reference Range Interpretation Comments Hgb (test code = Hgb) 10.0 12.0-16.0 L [facility] HospitalEuklcuaROQGDVYBIF3394-42-83 04:28:00 Test Item Value Reference Range Interpretation Comments MPV (test code = MPV) 10.1 7.4-10.4 N [facility] HospitalGirzdfvRHMTJXTFOJ9424-90-47 04:28:00 Test Item Value Reference Range Interpretation Comments Segs-Bands # (test code = Segs-Bands #) 4.4 1.5-8.1 N [facility] HospitalNljgujiYCFPLFSLIX9927-01-04 04:28:00 Test Item Value Reference Range Interpretation Comments Basophils (test code = 0.7 See_Comment N [Aut omated message] The Basophils) system which ge nerated this result tra nsmitted reference range : <=1.0. The reference r leo was not used to int erpret this result as normal/abnormal . [facility] HospitalKpwzcbhONWXJJMHGY8930-16-67 04:28:00 Test Item Value Reference Range Interpretation Comments Segs (test code = Segs) 70.7 45.0-75.0 N [facility] HospitalEmwqompJAAIGEUDPD1609-26-19 04:28:00 Test Item Value Reference Range Interpretation Comments Monocytes # (test code 0.3 See_Comment N [Aut omated message] The = Monocytes #) system which generated this result tra nsmitted reference range : <=0.8. The reference r leo was not used to int erpret this result as normal/abnormal . [facility] HospitalEosjwrjHCJWLBPLKK5470-42-90 04:28:00 Test Item Value Reference Range Interpretation Comments Lymphocytes # (test code = Lymphocytes 1.2 1.0-5.5 N #) [facility] HospitalKegchxeOZLBKCONRG2514-59-41 04:28:00 Test Item Value Reference Range Interpretation Comments Monocytes (test code = Monocytes) 4.5 2.0-12.0 N [facility] HospitalMmemkreVDUOPNCCNF9190-28-69 04:28:00 Test Item Value Reference Range Interpretation Comments Eosinophils (test code = 4.1 See_Comment H [A utomated message] The Eosinophils) system which ge nerated this result tra nsmitted reference range : <=4.0. The reference r leo was not used to int erpret this result as normal/abnormal . [facility] HospitalGgbyrahSEHMBGPECP7649-21-21 04:28:00 Test Item Value Reference Range Interpretation Comments Lymphocytes (test code = Lymphocytes) 20.0 20.0-40.0 N [facility] HospitalMchjsbkFWXBVYHSEB7352-23-15 04:28:00 Test Item Value Reference Range Interpretation Comments Basophils # (test code 0.0 See_Comment N [Aut omated message] The = Basophils #) system which generated this result tra nsmitted reference range : <=0.2. The reference r leo was not used to int erpret this result as normal/abnormal . [facility] HospitalLzqurkyQVHFHWIJVB7089-50-13 04:28:00 Test Item Value Reference Range Interpretation Comments Eosinophils # (test code 0.3 See_Comment N [A utomated message] The = Eosinophils #) system whic h generated this result tra nsmitted reference range : <=0.5. The reference r leo was not used to int erpret this result as normal/abnormal . [facility] GLUCOSE SIUZLIW6806-95-51 01:12:00 Test Item Value Reference Range Interpretation Comments Gluc POC Lifscn (test code = Gluc POC 260 70-99 H Lifscn) [facility] GLUCOSE PKQVSBS3167-60-58 01:12:00 Test Item Value Reference Range Interpretation Comments Comment1 (test code = Comment1) Ravi RN/MD [facility]YcowavgSXWGFKFEDU6021-69-09 23:40:00 Test Item Value Reference Range Interpretation Comments UA Protein (test code = Trace A UA Protein) *ABN*(03/14/2012 18:40:00) [facility]ThxgdhqZJSPAUMGKP3657-84-83 23:40:00 Test Item Value Reference Range Interpretation Comments UA pH (test code = UA pH) 6.0 1 5.0-8.0 N [facility]ieSvnulyrLZGBPJNWJO5830-66-41 23:40:00 Test Item Value Reference Range Interpretation Comments UA Ketones (test code = >=80 mg/dL UA Ketones) *NA*(03/14/2012 18:40:00) [facility]ieMogrpliXJKQRQNHKB1940-55-13 23:40:00 Test Item Value Reference Range Interpretation Comments UA Glucose (test code = >=1000 mg/dL A UA Glucose) *ABN*(03/14/2012 18:40:00) [facility]QjtyehmLYUXMDREGB2683-08-66 23:40:00 Test Item Value Reference Range Interpretation Comments UA Blood (test code = Negative (03/14/2012 N UA Blood) 18:40:00) [facility]HldjrsuNGCWGYFUOW6741-95-65 23:40:00 Test Item Value Reference Range Interpretation Comments UA Nitrite (test code Negative (03/14/2012 N = UA Nitrite) 18:40:00) [facility] RegionalVyilsarVPNYXMVJQH2608-19-00 23:40:00 Test Item Value Reference Range Interpretation Comments UA Urobilinogen (test code = UA 0.2 0.1-1.0 N Urobilinogen) [facility] RegionalSsypzaxOLVODCFMTP8203-48-34 23:40:00 Test Item Value Reference Range Interpretation Comments UA Leuk Est (test Negative (03/14/2012 N code = UA Leuk Est) 18:40:00) [facility] RegionalNsoyyshNSDPIFPZNW3648-64-09 23:40:00 Test Item Value Reference Range Interpretation Comments UA Bili (test code = Negative *NA*(03/14/2012 UA Bili) 18:40:00) [facility]ieFnehizzDVBUGHSARR6069-92-64 23:40:00 Test Item Value Reference Range Interpretation Comments UA Turbidity (test code = Clear (03/14/2012 N UA Turbidity) 18:40:00) [facility]GrpxaiaWAIMWYDFVB1663-32-14 23:40:00 Test Item Value Reference Range Interpretation Comments UA Color (test code = Yellow *NA*(03/14/2012 UA Color) 18:40:00) [facility] CenterSwjfmnpZZNULIQMFA2688-73-12 23:40:00 Test Item Value Reference Range Interpretation Comments UA Spec Grav (test >=1.030 A code = UA Spec Grav) *ABN*(03/14/2012 18:40:00) [facility] CenterDfazgwuOSXMTZCWTL4687-10-51 23:40:00 Test Item Value Reference Range Interpretation Comments UA Sq Epi (test code Occasional /LPF N = UA Sq Epi) (03/14/2012 18:40:00) [facility] CenterLejrdjvILBAJKKKEE3483-77-97 23:40:00 Test Item Value Reference Range Interpretation Comments UA WBC (test code = UA 3-5 /HPF (03/14/2012 N WBC) 18:40:00) [facility] CenterWaczebzVNMTOGBWUT4765-57-55 23:40:00 Test Item Value Reference Range Interpretation Comments UA Bacteria (test code Occasional /HPF N = UA Bacteria) (03/14/2012 18:40:00) [facility]leSxcoxwbUWYICALUR0446-48-33 22:50:00 Test Item Value Reference Range Interpretation Comments S Preg (test code = S Negative *NA*(03/14/2012 Preg) 17:50:00) [facility]leKkrrygkCYPKKJMJR9507-64-83 22:50:00 Test Item Value Reference Range Interpretation Comments Lipase Lvl (test code = Lipase Lvl) 45 73-393 L [facility]leVlpbggpEUEETDHQD6197-23-74 22:50:00 Test Item Value Reference Range Interpretation Comments A/G Ratio (test code = A/G Ratio) 1.2 0.7-1.6 N [facility]leMjnovcoLDWRXCYWR7656-79-51 22:50:00 Test Item Value Reference Range Interpretation Comments Globulin (test code = Globulin) 3.8 2.0-4.0 N [facility]leNzmzqgsRCZZSOKPF4542-47-07 22:50:00 Test Item Value Reference Range Interpretation Comments B/C Ratio (test code = B/C Ratio) 21 6-25 N [facility] AzleLnykwiyDBPAOHODJ3310-05-23 22:50:00 Test Item Value Reference Range Interpretation Comments AGAP (test code = AGAP) 16.8 10.0-20.0 N [facility]leLfvlcuiPCPEEQWBW8299-66-25 22:50:00 Test Item Value Reference Range Interpretation Comments Bili Total (test code = Bili Total) 1.1 0.2-1.3 N [facility] AzleVrpglwdWZFKDCQPX7561-71-86 22:50:00 Test Item Value Reference Range Interpretation Comments Total Protein (test code = Total 8.2 6.4-8.4 N Protein) [facility] AzleAmggdasAWCHWFOBE8518-91-27 22:50:00 Test Item Value Reference Range Interpretation Comments Potassium Lvl (test code = Potassium 3.8 3.5-5.1 N Lvl) [facility] AzleKycaalaHPFXPGXGZ6735-66-06 22:50:00 Test Item Value Reference Range Interpretation Comments Creatinine Lvl (test code = Creatinine 0.7 0.5-1.4 N Lvl) [facility]leEeioogbSFGBKLXNE1099-69-23 22:50:00 Test Item Value Reference Range Interpretation Comments Sodium Lvl (test code = Sodium Lvl) 139 135-145 N [facility]leIkfdytdKXOVJHNQN8134-41-83 22:50:00 Test Item Value Reference Range Interpretation Comments Chloride Lvl (test code = Chloride Lvl) 99 95-109 N [facility] AzleXhdzvxaZJARVXTVU9682-15-17 22:50:00 Test Item Value Reference Range Interpretation Comments CO2 (test code = CO2) 27 24-32 N [facility]leKmneitkEKBJGHWJV3213-14-49 22:50:00 Test Item Value Reference Range Interpretation Comments Glucose Lvl (test code = Glucose Lvl) 301 70-99 H [facility] AzleDbxryatHDBEKTJKS9861-16-55 22:50:00 Test Item Value Reference Range Interpretation Comments BUN (test code = BUN) 15 7-22 N [facility] AzleMrsjymxWVVIOTVNT6202-14-31 22:50:00 Test Item Value Reference Range Interpretation Comments ALT (test code = ALT) 24 See_Comment N [Auto mated message] The system which ge nerated this result transmit rohit reference range : <=65. The reference range was not used to interpr et this result as reji l/abnormal. [facility]lePvnqmzjJOZUZBSKW9610-50-58 22:50:00 Test Item Value Reference Range Interpretation Comments AST (test code = AST) 20 See_Comment N [Auto mated message] The system which ge nerated this result transmit rohit reference range : <=37. The reference range was not used to interpr et this result as reji l/abnormal. [facility] AzleYqbxogqCXZSBOSQA6678-97-87 22:50:00 Test Item Value Reference Range Interpretation Comments Alk Phos (test code = Alk Phos) 67 39-136 N [facility] AzleOqjwtlcLKNTLRFOE6791-91-13 22:50:00 Test Item Value Reference Range Interpretation Comments Albumin Lvl (test code = Albumin Lvl) 4.4 3.5-5.0 N [facility] AzleNqekmwpGUGTDSKJC6469-23-21 22:50:00 Test Item Value Reference Range Interpretation Comments Calcium Lvl (test code = Calcium Lvl) 9.9 8.5-10.5 N [facility] HospitalQusditpSJOEQMNEHZ3948-76-25 22:50:00 Test Item Value Reference Range Interpretation Comments MPV (test code = MPV) 11.8 7.4-10.4 H [facility] HospitalJiuqwnmTJASGHUZEN1255-94-54 22:50:00 Test Item Value Reference Range Interpretation Comments MCHC (test code = MCHC) 35.9 32.0-36.0 N [facility] HospitalGvotvwsYNEZBSBBGT2835-40-84 22:50:00 Test Item Value Reference Range Interpretation Comments MCH (test code = MCH) 31.2 pg 27.0-31.0 H [facility] HospitalPczwdarZYORNQHXPZ5507-50-53 22:50:00 Test Item Value Reference Range Interpretation Comments Platelet (test code = Platelet) 189 133-450 N [facility] HospitalEizjnhtFHWNFIZALV8379-06-59 22:50:00 Test Item Value Reference Range Interpretation Comments RDW (test code = RDW) 13.1 11.5-14.5 N [facility] HospitalNwkkrpbQQWWVFYTMO1256-95-17 22:50:00 Test Item Value Reference Range Interpretation Comments Hct (test code = Hct) 40.7 36.0-48.0 N [facility] HospitalUmjcjnjTLJMNZZXPM7136-12-54 22:50:00 Test Item Value Reference Range Interpretation Comments Hgb (test code = Hgb) 14.6 12.0-16.0 N [facility] HospitalLpkpmrpKOUOOHRANP9778-28-12 22:50:00 Test Item Value Reference Range Interpretation Comments MCV (test code = MCV) 87.0 81.0-99.0 N [facility] HospitalIrwnfolALAKEGIUJR0707-52-22 22:50:00 Test Item Value Reference Range Interpretation Comments WBC (test code = WBC) 11.7 3.7-10.4 H [facility] HospitalCkqiaefVCFNNZBQTX2266-43-66 22:50:00 Test Item Value Reference Range Interpretation Comments RBC (test code = RBC) 4.68 4.20-5.40 N [facility] HospitalXsbsxmbMPDHKBBLPQ2600-56-08 22:50:00 Test Item Value Reference Range Interpretation Comments Basophils # (test code 0.0 See_Comment N [Aut omated message] The = Basophils #) system which generated this result tra nsmitted reference range : <=0.2. The reference r leo was not used to int erpret this result as normal/abnormal . [facility] HospitalXxuuloiRJRXZRCASD8944-24-15 22:50:00 Test Item Value Reference Range Interpretation Comments Basophils (test code = 0.2 See_Comment N [Aut omated message] The Basophils) system which ge nerated this result tra nsmitted reference range : <=1.0. The reference r leo was not used to int erpret this result as normal/abnormal . [facility] HospitalMrlwsauGCSBLDIEAD0129-95-21 22:50:00 Test Item Value Reference Range Interpretation Comments Eosinophils # (test code 0.0 See_Comment N [A utomated message] The = Eosinophils #) system [facility] h generated this result tra nsmitted reference range : <=0.5. The reference r leo was not used to int erpret this result as normal/abnormal . [facility] HospitalZszqmwwSPOOWXONKT2943-52-25 22:50:00 Test Item Value Reference Range Interpretation Comments Monocytes # (test code 0.4 See_Comment N [Aut omated message] The = Monocytes #) system which generated this result tra nsmitted reference range : <=0.8. The reference r leo was not used to int erpret this result as normal/abnormal . [facility] HospitalRoncrywXIGWUTPNKH0636-36-21 22:50:00 Test Item Value Reference Range Interpretation Comments Segs-Bands # (test code = Segs-Bands #) 10.6 1.5-8.1 H [facility] HospitalZdutdtpFDFWEJIJTI0964-01-41 22:50:00 Test Item Value Reference Range Interpretation Comments Lymphocytes # (test code = Lymphocytes 0.7 1.0-5.5 L #) [facility] HospitalWkoovtbOPVUMSWBDA6262-26-97 22:50:00 Test Item Value Reference Range Interpretation Comments Monocytes (test code = Monocytes) 3.4 2.0-12.0 N [facility] HospitalGaoxqsbEGFOQHHPRO7381-92-78 22:50:00 Test Item Value Reference Range Interpretation Comments Plt Morph (test code = Normal (03/14/2012 N Plt Morph) 17:50:00) [facility] HospitalSjuyjveYYQNRRQZTC1707-70-12 22:50:00 Test Item Value Reference Range Interpretation Comments Lymphocytes (test code = Lymphocytes) 6.0 20.0-40.0 L [facility] HospitalCmgrflaUAKJJNPDKY9592-24-71 22:50:00 Test Item Value Reference Range Interpretation Comments Eosinophils (test code = 0.0 See_Comment N [A utomated message] The Eosinophils) system which ge nerated this result tra nsmitted reference range : <=4.0. The reference r leo was not used to int erpret this result as normal/abnormal . [facility] HospitalMsrvrgfROZEWBVDPZ3189-12-30 22:50:00 Test Item Value Reference Range Interpretation Comments Segs (test code = Segs) 90.4 45.0-75.0 H [facility] HospitalLtwiyyaPCUTNVHFVO5060-99-44 22:50:00 Test Item Value Reference Range Interpretation Comments RBC Morph (test code = Normal (03/14/2012 N RBC Morph) 17:50:00) [facility] GLUCOSE XONGFOE7941-18-85 23:43:00 Test Item Value Reference Range Interpretation Comments Gluc POC Lifscn (test code = Gluc POC 167 70-99 H Lifscn) [facility] GLUCOSE DLYPDOX7574-70-24 23:43:00 Test Item Value Reference Range Interpretation Comments Comment1 (test code = Comment1) Notify RN/ [facility] GLUCOSE XYVXJNY0349-83-74 23:43:00 Test Item Value Reference Range Interpretation Comments Comment2 (test code = Comment2) Sliding Scale [facility] GLUCOSE SDZXHIJ2904-07-82 17:40:00 Test Item Value Reference Range Interpretation Comments Gluc POC Lifscn (test code = Gluc POC 189 70-99 H Lifscn) [facility] GLUCOSE WFFAGDJ8335-71-27 17:40:00 Test Item Value Reference Range Interpretation Comments Comment1 (test code = Comment1) Notify TABATHA/ [facility] GLUCOSE [id number] 17:40:00 Test Item Value Reference Range Interpretation Comments Comment2 (test code = Comment2) Sliding Scale [facility] GLUCOSE [id number] 13:34:00 Test Item Value Reference Range Interpretation Comments Comment2 (test code = Comment2) Sliding Scale [facility] GLUCOSE BXWZKQQ5797-17-29 13:34:00 Test Item Value Reference Range Interpretation Comments Gluc POC Lifscn (test code = Gluc POC 110 70-99 H Lifscn) [facility] GLUCOSE [id number] 13:34:00 Test Item Value Reference Range Interpretation Comments Comment1 (test code = Comment1) Notify TABATHA/ [facility]IcqqrlsKTAOPSJFA7226-15-15 00:00:00 Test Item Value Reference Range Interpretation Comments U Preg (test code = U Negative (11/28/2011 N Preg) 19:00:00) [facility]landJgncwjmPPMKMEFBJF9196-65-50 00:00:00 Test Item Value Reference Range Interpretation Comments Micro? (test code = Performed (11/28/2011 N Micro?) 19:00:00) [facility]JoytnbvXMJUWZOOWY2004-03-87 00:00:00 Test Item Value Reference Range Interpretation Comments UA Sq Epi (test code Occasional /LPF N = UA Sq Epi) (11/28/2011 19:00:00) [facility] RegionalPvmrgnpSDPXTYTPDR9700-76-94 00:00:00 Test Item Value Reference Range Interpretation Comments UA RBC (test None Seen See_Comment N [Automated mes pastor] code = UA RBC) (11/28/2011 The system wh ich 19:00:00) generated this result transmitted ref erence range: <=2. The reference range was not used to int erpret this result as normal/abnormal . [facility] RegionalAfgtfpfOGYFDYORAT8722-53-86 00:00:00 Test Item Value Reference Range Interpretation Comments UA WBC (test code Occasional See_Comment [Automate d message] The = UA WBC) system which ge nerated this result tra nsmitted reference range : <=5. The reference range was not used to interpr et this result as normal/abnormal . [facility]AtoqijmXQTKKKCWHV7505-52-11 00:00:00 Test Item Value Reference Range Interpretation Comments UA Protein (test code Negative mg/dL N = UA Protein) (11/28/2011 19:00:00) [facility] CenterMrdljhhOMSANKEZRM7776-65-82 00:00:00 Test Item Value Reference Range Interpretation Comments UA pH (test code = UA pH) 7.0 1 5.0-8.0 N [facility] CenterTrysjrnEALKAXNFYQ0256-84-42 00:00:00 Test Item Value Reference Range Interpretation Comments UA Spec Grav (test code = UA Spec 1.020 1 N Grav) [facility] CenterRlzylbcOQQLZROFSX8950-62-73 00:00:00 Test Item Value Reference Range Interpretation Comments UA Turbidity (test code = Clear (11/28/2011 N UA Turbidity) 19:00:00) [facility] CenterSwbrbvcJUAKAISECD7003-84-84 00:00:00 Test Item Value Reference Range Interpretation Comments UA Color (test code = Yellow *NA*(11/28/2011 UA Color) 19:00:00) [facility] CenterDbtpxocBFFHXSPSUS7583-23-45 00:00:00 Test Item Value Reference Range Interpretation Comments UA Urobilinogen (test code = UA 0.2 0.1-1.0 N Urobilinogen) [facility] CenterRhhbzdnJLICVNQNZS7769-38-16 00:00:00 Test Item Value Reference Range Interpretation Comments UA Blood (test code = Negative (11/28/2011 N UA Blood) 19:00:00) [facility] RegionalLabrkvcPJNSBCOQOV0453-57-69 00:00:00 Test Item Value Reference Range Interpretation Comments UA Bili (test code = Negative *NA*(11/28/2011 UA Bili) 19:00:00) [facility]NkypydfSSRTWXWEDW8390-54-58 00:00:00 Test Item Value Reference Range Interpretation Comments UA Ketones (test code = >=80 mg/dL A UA Ketones) *ABN*(11/28/2011 19:00:00) [facility]ieKbclnbfLNEXPQQLKU5789-45-16 00:00:00 Test Item Value Reference Range Interpretation Comments UA Glucose (test code = >=1000 mg/dL A UA Glucose) *ABN*(11/28/2011 19:00:00) [facility] RegionalDhfadzfSWSPOXEHUQ6603-13-79 00:00:00 Test Item Value Reference Range Interpretation Comments UA Nitrite (test code Negative (11/28/2011 N = UA Nitrite) 19:00:00) [facility] RegionalFsjvsurGYSCCNEHOB4044-16-73 00:00:00 Test Item Value Reference Range Interpretation Comments UA Leuk Est (test Negative (11/28/2011 N code = UA Leuk Est) 19:00:00) [facility] RegionalVwgcagaOWLMJLKYY3883-53-46 20:41:00 Test Item Value Reference Range Interpretation Comments pO2 Roberth (test code = pO2 Roberth) 60 20-49 H [facility]leTegcgbzTGMNRIDXE7359-36-85 20:41:00 Test Item Value Reference Range Interpretation Comments pCO2 Roberth (test code = pCO2 Roberth) 41 38-52 N [facility] AzleBpfoaolLFSBAMWKJ0611-86-98 20:41:00 Test Item Value Reference Range Interpretation Comments pH Roberth (test code = pH Roberth) 7.45 7.28-7.42 H [facility] AzleXsnueirHSHTWLFAL4336-46-21 20:41:00 Test Item Value Reference Range Interpretation Comments Temp Roberth (test code = Temp Roberth) 37.0 [facility] AzleMqukopoGPADNAFXJ8237-55-87 20:41:00 Test Item Value Reference Range Interpretation Comments O2 Sat Roberth (test code = O2 Sat Roberth) 92.0 40.0-70.0 H [facility] AzleRmrgdriTPAJSZOJR3433-84-69 20:41:00 Test Item Value Reference Range Interpretation Comments BE Roberth (test code = 4 See_Comment H [Automa rohit message] The BE Roberth) system which ge nerated this result transmit rohit reference range : <=2. The reference range was not used to interpr et this result as reji l/abnormal. [facility] AzleQyrdcxzESWXMNPYF0014-68-51 20:41:00 Test Item Value Reference Range Interpretation Comments HCO3 Roberth (test code = HCO3 Roberth) 28.5 22.0-26.0 H [facility] AzleRmgbydiMFENJPLIB5927-60-03 20:00:00 Test Item Value Reference Range Interpretation Comments Lactic Acid Lvl (test code = Lactic 1.6 0.5-2.2 N Acid Lvl) [facility] AzleDosrmmwSKGJCFDYO7102-32-83 20:00:00 Test Item Value Reference Range Interpretation Comments Lipase Lvl (test code = Lipase Lvl) 125 73-393 N [facility] AzleNloyjfvWIZFVQRQK8510-62-65 20:00:00 Test Item Value Reference Range Interpretation Comments Albumin Lvl (test code = Albumin Lvl) 4.2 3.5-5.0 N [facility] AzleKqyqiwrLZWJXYYLF0078-08-70 20:00:00 Test Item Value Reference Range Interpretation Comments CO2 (test code = CO2) 23 24-32 L [facility] AzleHqcpgmlADCGOXDQA2095-90-04 20:00:00 Test Item Value Reference Range Interpretation Comments Chloride Lvl (test code = Chloride Lvl) 98 95-109 N [facility] AzleYhxaoreVJZGAVOKZ6504-97-80 20:00:00 Test Item Value Reference Range Interpretation Comments Potassium Lvl (test code = Potassium 3.8 3.5-5.1 N Lvl) [facility] AzleMvnbosfAAFXQOOHC0673-23-26 20:00:00 Test Item Value Reference Range Interpretation Comments Sodium Lvl (test code = Sodium Lvl) 138 135-145 N [facility] AzleIawgwfzHDIWXYGLJ6343-40-65 20:00:00 Test Item Value Reference Range Interpretation Comments Creatinine Lvl (test code = Creatinine 0.7 0.5-1.4 N Lvl) [facility] AzleZrnjveqPBGAXNMET9522-76-26 20:00:00 Test Item Value Reference Range Interpretation Comments BUN (test code = BUN) 9 7-22 N [facility] AzleUfvbnppQRSAGECPL2820-11-48 20:00:00 Test Item Value Reference Range Interpretation Comments Glucose Lvl (test code = Glucose Lvl) 269 70-99 H [facility] AzleZsupgviPAFUBFVBK9675-64-04 20:00:00 Test Item Value Reference Range Interpretation Comments B/C Ratio (test code = B/C Ratio) 13 6-25 N [facility] AzleMehobntHYEFAIQPQ4134-86-05 20:00:00 Test Item Value Reference Range Interpretation Comments AGAP (test code = AGAP) 20.8 10.0-20.0 H [facility] AzleHwpsxdqVJXDLIBBL1163-37-33 20:00:00 Test Item Value Reference Range Interpretation Comments Calcium Lvl (test code = Calcium Lvl) 9.3 8.5-10.5 N [facility] AzleTtaictvDTBWGQQKD6636-91-01 20:00:00 Test Item Value Reference Range Interpretation Comments Total Protein (test code = Total 6.7 6.4-8.4 N Protein) [facility] AzlePpdvxrySSQBTDHEL6294-83-62 20:00:00 Test Item Value Reference Range Interpretation Comments A/G Ratio (test code = A/G Ratio) 1.7 0.7-1.6 H [facility] AzleDcsydprSMUDEOICB5706-10-33 20:00:00 Test Item Value Reference Range Interpretation Comments Globulin (test code = Globulin) 2.5 2.0-4.0 N [facility] AzleJypjcfsIGLRMGTNH2490-86-26 20:00:00 Test Item Value Reference Range Interpretation Comments AST (test code = AST) 18 See_Comment N [Auto mated message] The system which ge nerated this result transmit rohit reference range : <=37. The reference range was not used to interpr et this result as reji l/abnormal. [facility] AzleFunmdojXBPSNYIRX2899-03-84 20:00:00 Test Item Value Reference Range Interpretation Comments Alk Phos (test code = Alk Phos) 62 39-136 N [facility] AzleIecesiyVFCJCISCN3310-51-99 20:00:00 Test Item Value Reference Range Interpretation Comments ALT (test code = ALT) 32 See_Comment N [Auto mated message] The system which ge nerated this result transmit rohit reference range : <=65. The reference range was not used to interpr et this result as reji l/abnormal. [facility] AzleLexnqxtNYYUIVKQZ2273-55-28 20:00:00 Test Item Value Reference Range Interpretation Comments Bili Total (test code = Bili Total) 0.7 0.2-1.3 N [facility] HospitalNoyxjilIQPGQWVZIL2322-75-60 20:00:00 Test Item Value Reference Range Interpretation Comments Anisocyte (test code = 1+ *ABN*(11/28/2011 A Anisocyte) 15:00:00) [facility] HospitalQunchcrYNLQELPMTG8255-47-72 20:00:00 Test Item Value Reference Range Interpretation Comments Monocytes # (test code 0.1 See_Comment N [Aut omated message] The = Monocytes #) system which generated this result tra nsmitted reference range : <=0.8. The reference r leo was not used to int erpret this result as normal/abnormal . [facility] HospitalSdsuityNVUDXTAUFZ2938-56-39 20:00:00 Test Item Value Reference Range Interpretation Comments Eosinophils # (test code 0.0 See_Comment N [A utomated message] The = Eosinophils #) system whic h generated this result tra nsmitted reference range : <=0.5. The reference r leo was not used to int erpret this result as normal/abnormal . [facility] HospitalTgadnfhFFBBHPAZBH6271-24-70 20:00:00 Test Item Value Reference Range Interpretation Comments Basophils # (test code 0.0 See_Comment N [Aut omated message] The = Basophils #) system which generated this result tra nsmitted reference range : <=0.2. The reference r leo was not used to int erpret this result as normal/abnormal . [facility] HospitalGhrbqgmMGAHLTKYWB2890-42-10 20:00:00 Test Item Value Reference Range Interpretation Comments Neut Vac (test code = Slight *ABN*(11/28/2011 A Neut Vac) 15:00:00) [facility] HospitalCuupzvnIYFTMEHFVR4163-44-55 20:00:00 Test Item Value Reference Range Interpretation Comments Large Plt (test code = Slight *ABN*(11/28/2011 A Large Plt) 15:00:00) [facility] HospitalPsczmvjSRNBXCTRMI8700-47-04 20:00:00 Test Item Value Reference Range Interpretation Comments Segs-Bands # (test code = Segs-Bands #) 5.7 1.5-8.1 N [facility] HospitalZbtkmemQXBTASXSQD6037-79-17 20:00:00 Test Item Value Reference Range Interpretation Comments Lymphocytes # (test code = Lymphocytes 0.8 1.0-5.5 L #) [facility] HospitalQmfujsxYVUWZGGAQQ2608-55-55 20:00:00 Test Item Value Reference Range Interpretation Comments Eosinophils (test code = 0.2 See_Comment N [A utomated message] The Eosinophils) system which ge nerated this result tra nsmitted reference range : <=4.0. The reference r leo was not used to int erpret this result as normal/abnormal . [facility] HospitalObpaqiuVVFJVNLBZO3828-39-67 20:00:00 Test Item Value Reference Range Interpretation Comments Basophils (test code = 0.0 See_Comment N [Aut omated message] The Basophils) system which ge nerated this result tra nsmitted reference range : <=1.0. The reference r leo was not used to int erpret this result as normal/abnormal . [facility] HospitalDataslnEAISUVNIIL5898-20-97 20:00:00 Test Item Value Reference Range Interpretation Comments Monocytes (test code = Monocytes) 1.9 2.0-12.0 L [facility] HospitalRygajedRPUDSGHFVD3398-85-34 20:00:00 Test Item Value Reference Range Interpretation Comments Segs (test code = Segs) 86.2 45.0-75.0 H [facility] HospitalMyvoeuoNOWMGENHWJ3663-64-64 20:00:00 Test Item Value Reference Range Interpretation Comments Lymphocytes (test code = Lymphocytes) 11.7 20.0-40.0 L [facility] HospitalWfbbbblOFZQLSEHAH6774-11-13 20:00:00 Test Item Value Reference Range Interpretation Comments MPV (test code = MPV) 10.8 7.4-10.4 H [facility] HospitalAatvgphVEMFJAUCNW6716-87-06 20:00:00 Test Item Value Reference Range Interpretation Comments Platelet (test code = Platelet) 161 133-450 N [facility] HospitalBfhtvagTGXGGXSGNU9126-76-41 20:00:00 Test Item Value Reference Range Interpretation Comments MCHC (test code = MCHC) 35.6 32.0-36.0 N [facility] HospitalCjxggodNGCSZQQSSA0347-09-31 20:00:00 Test Item Value Reference Range Interpretation Comments RDW (test code = RDW) 12.4 11.5-14.5 N [facility] HospitalWvjfagyJFEQLCYIXZ7899-54-84 20:00:00 Test Item Value Reference Range Interpretation Comments MCH (test code = MCH) 30.7 pg 27.0-31.0 N [facility] HospitalOijrqkaISYYCCWQVC6634-22-25 20:00:00 Test Item Value Reference Range Interpretation Comments MCV (test code = MCV) 86.1 81.0-99.0 N [facility] HospitalCpsfnkeDRWWBTTSHP4430-67-42 20:00:00 Test Item Value Reference Range Interpretation Comments Hct (test code = Hct) 33.6 36.0-48.0 L [facility] HospitalNgeqajsMATLCQGNOU0895-46-52 20:00:00 Test Item Value Reference Range Interpretation Comments Hgb (test code = Hgb) 12.0 12.0-16.0 N [facility] HospitalNxhwijwSEVZRDBTGJ7555-90-01 20:00:00 Test Item Value Reference Range Interpretation Comments RBC (test code = RBC) 3.90 4.20-5.40 L [facility] HospitalXuikzqcDSRTFICDHS0236-62-50 20:00:00 Test Item Value Reference Range Interpretation Comments WBC (test code = WBC) 6.6 3.7-10.4 N [facility] AzleAxwbpsuFTLKZHRTG2344-67-36 19:51:00 Test Item Value Reference Range Interpretation Comments UDS Note (test code = See Note UDS Note) 5*NA*(11/28/2011 14:51:00) [facility] AzleXkurnvbBLUQUJBLY8097-24-17 19:51:00 Test Item Value Reference Range Interpretation Comments U Phencyc Scr (test Negative code = U Phencyc Scr) *NA*(11/28/2011 14:51:00) [facility] AzleQwduszgPPEOXNJWS5600-00-89 19:51:00 Test Item Value Reference Range Interpretation Comments U Kelly Scr (test code Negative *NA*(11/28/2011 = U Kelly Scr) 14:51:00) [facility] AzleCotncjlHAKKHJIIZ8565-78-86 19:51:00 Test Item Value Reference Range Interpretation Comments U Amph Scr (test code Negative *NA*(11/28/2011 = U Amph Scr) 14:51:00) [facility] AzleDdzylxeJJDUXLAXZ5231-42-13 19:51:00 Test Item Value Reference Range Interpretation Comments U Opiate Scr (test Negative code = U Opiate Scr) *NA*(11/28/2011 14:51:00) [facility]leOjsnbwqQXTYWARZL1462-56-97 19:51:00 Test Item Value Reference Range Interpretation Comments U Cocaine Scr (test Negative code = U Cocaine Scr) *NA*(11/28/2011 14:51:00) [facility] AzleZjmrmsqZSPFYGGLP9975-28-42 19:51:00 Test Item Value Reference Range Interpretation Comments U Cannab Scr (test Negative code = U Cannab Scr) *NA*(11/28/2011 14:51:00) [facility] AzleQjkogudIMQLDSNRO3395-53-43 19:51:00 Test Item Value Reference Range Interpretation Comments U Benzodia Scr (test Negative code = U Benzodia Scr) *NA*(11/28/2011 14:51:00) [facility] GLUCOSE QXZKDEO2473-80-70 16:20:00 Test Item Value Reference Range Interpretation Comments Comment1 (test code = Comment1) Ravi MAYS/ [facility] GLUCOSE MAKOZUK3924-43-04 16:20:00 Test Item Value Reference Range Interpretation Comments Gluc POC Lifscn (test code = Gluc POC 328 70-99 H Lifscn) [facility] RegionalAcgqgeyLMRVGQYQC2489-54-70 15:30:00 Test Item Value Reference Range Interpretation Comments U Preg (test code = U Negative (09/18/2011 N Preg) 10:30:00) [facility] RegionalVhbilszQTHIJHJZFT5044-73-90 15:30:00 Test Item Value Reference Range Interpretation Comments UA WBC (test code = UA None Seen (09/18/2011 N WBC) 10:30:00) [facility] RegionalUgtaqymUTELMAWPIC6391-58-54 15:30:00 Test Item Value Reference Range Interpretation Comments UA RBC (test None Seen See_Comment N [Automated mes pastor] code = UA RBC) (09/18/2011 The system wh ich 10:30:00) generated this result transmitted ref erence range: <=2. The reference range was not used to int erpret this result as normal/abnormal . [facility] RegionalWuikzswXKENMZDKLO8064-78-20 15:30:00 Test Item Value Reference Range Interpretation Comments UA Bacteria (test code = None Seen (09/18/2011 N UA Bacteria) 10:30:00) [facility]ieToleujqBRCBGEBOVL7094-83-84 15:30:00 Test Item Value Reference Range Interpretation Comments UA Amorph Destiny (test Few /HPF A code = UA Amorph Destiny) *ABN*(09/18/2011 10:30:00) [facility]ieGqfpiacJSOHBNDKVY5954-09-58 15:30:00 Test Item Value Reference Range Interpretation Comments Micro? (test code = Performed (09/18/2011 N Micro?) 10:30:00) [facility] RegionalSeqbtaiRAXEWWOGYI2239-33-88 15:30:00 Test Item Value Reference Range Interpretation Comments UA Sq Epi (test code = Rare /LPF (09/18/2011 N UA Sq Epi) 10:30:00) [facility] RegionalFqjqtueHUURNFRTJG5823-98-02 15:30:00 Test Item Value Reference Range Interpretation Comments UA Ketones (test code = 15 mg/dL A UA Ketones) *ABN*(09/18/2011 10:30:00) [facility] RegionalTchbdpwIZMQWHBNMA2050-85-23 15:30:00 Test Item Value Reference Range Interpretation Comments UA Glucose (test code = >=1000 mg/dL A UA Glucose) *ABN*(09/18/2011 10:30:00) [facility] CenterFujfovoOGNFLSDXPQ3188-80-71 15:30:00 Test Item Value Reference Range Interpretation Comments UA Protein (test code = Trace A UA Protein) *ABN*(09/18/2011 10:30:00) [facility] CenterItoemyiAOXSDQYGXF7215-04-55 15:30:00 Test Item Value Reference Range Interpretation Comments UA Urobilinogen (test code = UA 0.2 0.1-1.0 N Urobilinogen) [facility] CenterHqnarwoBEATEFTUUA4236-45-12 15:30:00 Test Item Value Reference Range Interpretation Comments UA Blood (test code = Negative (09/18/2011 N UA Blood) 10:30:00) [facility] CenterCckenmbBCJHETVOJZ8557-21-80 15:30:00 Test Item Value Reference Range Interpretation Comments UA Bili (test code = Negative *NA*(09/18/2011 UA Bili) 10:30:00) [facility] CenterOpdlprlMYAJAMISDD5198-37-60 15:30:00 Test Item Value Reference Range Interpretation Comments UA Leuk Est (test Negative (09/18/2011 N code = UA Leuk Est) 10:30:00) [facility] CenterNtlqykvRMVUQHWCUT6728-71-92 15:30:00 Test Item Value Reference Range Interpretation Comments UA Nitrite (test code Negative (09/18/2011 N = UA Nitrite) 10:30:00) [facility] CenterSxihoqaLMTETHPVBV0223-53-24 15:30:00 Test Item Value Reference Range Interpretation Comments UA pH (test code = UA pH) 7.5 1 5.0-8.0 N [facility] CenterClichjsYVKRTYMAKN8406-02-20 15:30:00 Test Item Value Reference Range Interpretation Comments UA Spec Grav (test code = UA Spec 1.010 1 N Grav) [facility] CenterGpyibzfSCSSWMTAEQ6468-40-33 15:30:00 Test Item Value Reference Range Interpretation Comments UA Turbidity (test code Slight Cloudy N = UA Turbidity) (09/18/2011 10:30:00) [facility] CenterJfgpsnuPRLISRTKJK8992-56-77 15:30:00 Test Item Value Reference Range Interpretation Comments UA Color (test code = Yellow *NA*(09/18/2011 UA Color) 10:30:00) [facility] AzleFmuqlpwFNNAEBHWH6019-52-45 14:07:00 Test Item Value Reference Range Interpretation Comments Phosphorus (test code = Phosphorus) 4.4 2.5-4.5 N [facility] AzleGkvuktuBTZQHWLDW8890-59-47 14:07:00 Test Item Value Reference Range Interpretation Comments Magnesium Lvl (test code = Magnesium 1.6 1.8-2.4 L Lvl) [facility] YVUODLV9948-11-53 14:01:00 Test Item Value Reference Range Interpretation Comments Gluc POC Lifscn (test code = Gluc POC no gt 70-99 A Lifscn) [facility] AzleFwuxyieLGHBMGZZB2449-84-82 13:52:00 Test Item Value Reference Range Interpretation Comments pO2 Roberth (test code = pO2 Roberth) 24 20-49 N [facility] AzleDznadloZEEYZOUEX5266-19-88 13:52:00 Test Item Value Reference Range Interpretation Comments HCO3 Roberth (test code = HCO3 Roberth) 32.0 22.0-26.0 H [facility] AzleSkjewijPGZSQGVHS6236-90-37 13:52:00 Test Item Value Reference Range Interpretation Comments pCO2 Roberth (test code = pCO2 Roberth) 44 38-52 N [facility] AzleFofeokxJLREPLIHC0684-06-14 13:52:00 Test Item Value Reference Range Interpretation Comments BE Roberth (test code = 7 See_Comment H [Automa rohit message] The BE Robetrh) system which ge nerated this result transmit rohit reference range : <=2. The reference range was not used to interpr et this result as reji l/abnormal. [facility] AzleMoopdgkFQGMYTEIA8553-14-10 13:52:00 Test Item Value Reference Range Interpretation Comments O2 Sat Roberth (test code = O2 Sat Roberth) 48.0 40.0-70.0 N [facility] AzleOyuavbbRRADIXYBE8321-86-84 13:52:00 Test Item Value Reference Range Interpretation Comments Temp Roberth (test code = Temp Roberth) 37.0 [facility] AzleAzioapeTUQJXQSCC0059-43-12 13:52:00 Test Item Value Reference Range Interpretation Comments pH Roberth (test code = pH Roberth) 7.47 7.28-7.42 H [facility] AzleIwwamiwPWWZJXPFN2235-36-72 13:52:00 Test Item Value Reference Range Interpretation Comments Calcium Lvl (test code = Calcium Lvl) 10.1 8.5-10.5 N [facility] AzleAagpnqiKOMLTKBTM3376-88-94 13:52:00 Test Item Value Reference Range Interpretation Comments Chloride Lvl (test code = Chloride Lvl) 92 95-109 L [facility] AzleWsthqgvFESSASKPW7227-04-37 13:52:00 Test Item Value Reference Range Interpretation Comments CO2 (test code = CO2) 30 24-32 N [facility]leNvczaynMSKNKFMUE6660-03-40 13:52:00 Test Item Value Reference Range Interpretation Comments Potassium Lvl (test code = Potassium 3.5 3.5-5.1 N Lvl) [facility]leIvstovzJEYZNSVPQ5718-50-10 13:52:00 Test Item Value Reference Range Interpretation Comments Sodium Lvl (test code = Sodium Lvl) 133 135-145 L [facility]leLfyufzeDGFRBXTGT9015-52-96 13:52:00 Test Item Value Reference Range Interpretation Comments Creatinine Lvl (test code = Creatinine 1.3 0.5-1.4 N Lvl) [facility]leRacyqghMSNYORDRD9821-36-16 13:52:00 Test Item Value Reference Range Interpretation Comments Glucose Lvl (test code = Glucose Lvl) 383 70-99 H [facility]leNprgzdgVKDZLRQPM3890-95-48 13:52:00 Test Item Value Reference Range Interpretation Comments BUN (test code = BUN) 17 7-22 N [facility]leNyvuaoqDWAZPTSRH8928-00-30 13:52:00 Test Item Value Reference Range Interpretation Comments AGAP (test code = AGAP) 14.5 10.0-20.0 N [facility] HospitalPatfnbgIQUDASVRFF0299-19-03 13:52:00 Test Item Value Reference Range Interpretation Comments MPV (test code = MPV) 12.0 7.4-10.4 H [facility] HospitalFbijggsURWZVUMZPY7071-48-95 13:52:00 Test Item Value Reference Range Interpretation Comments Platelet (test code = Platelet) 226 133-450 N [facility] HospitalKbpyupjLTAYWQKLGI7874-34-25 13:52:00 Test Item Value Reference Range Interpretation Comments MCHC (test code = MCHC) 33.7 32.0-36.0 N [facility] HospitalCompapoSHILLRLOXR2707-82-76 13:52:00 Test Item Value Reference Range Interpretation Comments MCH (test code = MCH) 28.5 pg 27.0-31.0 N [facility] HospitalSknvdyhSTJKCOFMIG8524-12-17 13:52:00 Test Item Value Reference Range Interpretation Comments RDW (test code = RDW) 15.1 11.5-14.5 H [facility] HospitalHycahrlTOEYHQQQPA6925-25-83 13:52:00 Test Item Value Reference Range Interpretation Comments MCV (test code = MCV) 84.6 81.0-99.0 N [facility] HospitalNkxspfsMCJZGPLPWP8409-53-11 13:52:00 Test Item Value Reference Range Interpretation Comments Hct (test code = Hct) 36.4 36.0-48.0 N [facility] HospitalIaxdwtsAYMSBOPJOD9076-75-19 13:52:00 Test Item Value Reference Range Interpretation Comments Hgb (test code = Hgb) 12.3 12.0-16.0 N [facility] HospitalFzjfkueJLJIWTKFWS4130-06-41 13:52:00 Test Item Value Reference Range Interpretation Comments RBC (test code = RBC) 4.30 4.20-5.40 N [facility] HospitalKrzoaavIBBYQLXKAV5813-59-33 13:52:00 Test Item Value Reference Range Interpretation Comments WBC (test code = WBC) 11.7 3.7-10.4 H [facility] HospitalZhjwcxqERAUZIQQPJ0800-17-21 13:52:00 Test Item Value Reference Range Interpretation Comments Monocytes (test code = Monocytes) 2.9 2.0-12.0 N [facility] HospitalTtmjwjsIKCNBGRXWI5074-97-35 13:52:00 Test Item Value Reference Range Interpretation Comments Eosinophils (test code = 0.2 See_Comment N [A utomated message] The Eosinophils) system which ge nerated this result tra nsmitted reference range : <=4.0. The reference r leo was not used to int erpret this result as normal/abnormal . [facility] HospitalDrctkxqJWVYWTKECJ0765-95-25 13:52:00 Test Item Value Reference Range Interpretation Comments Basophils (test code = 0.0 See_Comment N [Aut omated message] The Basophils) system which ge nerated this result tra nsmitted reference range : <=1.0. The reference r leo was not used to int erpret this result as normal/abnormal . [facility] HospitalYdoyovnKHSDEOAAMH5737-46-58 13:52:00 Test Item Value Reference Range Interpretation Comments Eosinophils # (test code 0.0 See_Comment N [A utomated message] The = Eosinophils #) system [facility] h generated this result tra nsmitted reference range : <=0.5. The reference r leo was not used to int erpret this result as normal/abnormal . [facility] HospitalEghpogoEBVULLGIID6337-41-76 13:52:00 Test Item Value Reference Range Interpretation Comments Monocytes # (test code 0.3 See_Comment N [Aut omated message] The = Monocytes #) system which generated this result tra nsmitted reference range : <=0.8. The reference r leo was not used to int erpret this result as normal/abnormal . [facility] HospitalLeenhjsSOEBRQDMEV3670-57-30 13:52:00 Test Item Value Reference Range Interpretation Comments Segs (test code = Segs) 92.0 45.0-75.0 H [facility] HospitalLctlcceCNLHFMZBYE0647-76-94 13:52:00 Test Item Value Reference Range Interpretation Comments Lymphocytes (test code = Lymphocytes) 4.9 20.0-40.0 L [facility] HospitalGmyhpyuHKBBFYXJXV5501-95-72 13:52:00 Test Item Value Reference Range Interpretation Comments Spherocyte (test code = Rare A Spherocyte) *ABN*(09/18/2011 08:52:00) [facility] HospitalVgilpbiQOOKVFUQFY1930-18-51 13:52:00 Test Item Value Reference Range Interpretation Comments Large Plt (test code = Slight *ABN*(09/18/2011 A Large Plt) 08:52:00) [facility] HospitalAvqvadtIKKECALCON4563-25-79 13:52:00 Test Item Value Reference Range Interpretation Comments Microcyte (test code = 1+ *ABN*(09/18/2011 A Microcyte) 08:52:00) [facility] HospitalCicumxrQLTHYDPXQD4002-33-06 13:52:00 Test Item Value Reference Range Interpretation Comments Schistocyte (test code = Schistocyte) Rare [facility] HospitalVcwugewUHITLGOBMK1698-75-22 13:52:00 Test Item Value Reference Range Interpretation Comments Macrocyte (test code = 1+ *ABN*(09/18/2011 A Macrocyte) 08:52:00) [facility] HospitalCtrucxtKUYNLLBZPY3149-71-12 13:52:00 Test Item Value Reference Range Interpretation Comments Lymphocytes # (test code = Lymphocytes 0.6 1.0-5.5 L #) [facility] HospitalUipmotvMXXWMSMLIQ7548-24-30 13:52:00 Test Item Value Reference Range Interpretation Comments Segs-Bands # (test code = Segs-Bands #) 10.8 1.5-8.1 H [facility]EvqypuyRDGNYDIKFV1785-93-35 13:52:00 Test Item Value Reference Range Interpretation Comments Basophils # (test code 0.0 See_Comment N [Aut omated message] The = Basophils #) system which generated this result tra nsmitted reference range : <=0.2. The reference r leo was not used to int erpret this result as normal/abnormal . [facility]HvvpbaoFIIXOWUVPW9706-79-82 13:52:00 Test Item Value Reference Range Interpretation Comments Anisocyte (test code = 1+ *ABN*(09/18/2011 A Anisocyte) 08:52:00) [facility]OobfwhmNZKCRJWNGR5646-36-63 13:52:00 Test Item Value Reference Range Interpretation Comments CDC-HIV 1/2 Ab (test Negative *NA*(09/18/2011 code = CDC-HIV 1/2 08:52:00) Ab) [facility] GLUCOSE FNLLOED8979-73-28 17:34:00 Test Item Value Reference Range Interpretation Comments Gluc POC Lifscn (test code = Gluc POC 215 70-99 H Lifscn) [facility] GLUCOSE USEBZJQ7288-60-71 17:34:00 Test Item Value Reference Range Interpretation Comments Comment1 (test code = Comment1) Notify RN/ [facility] GLUCOSE CZRJWFN7517-80-64 11:43:00 Test Item Value Reference Range Interpretation Comments Comment1 (test code = Comment1) Notify RN/ [facility] GLUCOSE IKAEBDK6583-65-35 11:43:00 Test Item Value Reference Range Interpretation Comments Gluc POC Lifscn (test code = Gluc POC 91 65-110 N Lifscn) [facility] GLUCOSE KAEZCDU9986-44-73 02:45:00 Test Item Value Reference Range Interpretation Comments Comment1 (test code = Comment1) Notify RN/ [facility] GLUCOSE STIZSUR5898-75-86 02:45:00 Test Item Value Reference Range Interpretation Comments Gluc POC Lifscn (test code = Gluc POC 148 65-110 H Lifscn) [facility]JzwfpqhMKOCFBSCZ5101-87-41 08:47:00 Test Item Value Reference Range Interpretation Comments Sodium Lvl (test code = Sodium Lvl) 143 135-145 N [facility]leCxmasdqBVSWNAMQB6576-04-62 08:47:00 Test Item Value Reference Range Interpretation Comments Glucose Lvl (test code = Glucose Lvl) 105 [facility]lePkusfdeMHFAXGHHG6057-23-92 08:47:00 Test Item Value Reference Range Interpretation Comments CO2 (test code = CO2) 29 24-32 N [facility]leAcffxfzBXMCCQQLS8489-53-99 08:47:00 Test Item Value Reference Range Interpretation Comments Chloride Lvl (test code = Chloride Lvl) 103 95-109 N [facility]leQrsrvfxNNCFZFUCC9860-72-81 08:47:00 Test Item Value Reference Range Interpretation Comments BUN (test code = BUN) 10 7-22 N [facility]leLfstpgwIYRGGJQHU1017-68-51 08:47:00 Test Item Value Reference Range Interpretation Comments Potassium Lvl (test code = Potassium 3.8 3.5-5.1 N Lvl) [facility]leBzduosuLRVQPVGLD2342-19-05 08:47:00 Test Item Value Reference Range Interpretation Comments Creatinine Lvl (test code = Creatinine 0.6 0.5-1.4 N Lvl) [facility]leUoftdzzMSUAIXJCA0073-81-67 08:47:00 Test Item Value Reference Range Interpretation Comments Calcium Lvl (test code = Calcium Lvl) 8.5 8.5-10.5 N [facility]leQbcpeitAFGMCAWST4100-77-58 08:47:00 Test Item Value Reference Range Interpretation Comments AGAP (test code = AGAP) 14.8 10.0-20.0 N [facility] HospitalHfqgkamIYLBNRDKOL8264-59-60 08:47:00 Test Item Value Reference Range Interpretation Comments MCH (test code = MCH) 28.9 pg 27.0-31.0 N [facility] HospitalNvamselOSLGHOSDFG1401-10-67 08:47:00 Test Item Value Reference Range Interpretation Comments MCV (test code = MCV) 82.1 81.0-99.0 N [facility] HospitalNdrullrQPBQNGPBZS2695-90-05 08:47:00 Test Item Value Reference Range Interpretation Comments Hct (test code = Hct) 25.9 36.0-48.0 L [facility] HospitalYuvutqrMHFBFWUYCD9898-64-18 08:47:00 Test Item Value Reference Range Interpretation Comments Platelet (test code = Platelet) 233 133-450 N [facility] HospitalZbqijpcLXJUSEPWPQ4774-27-46 08:47:00 Test Item Value Reference Range Interpretation Comments RDW (test code = RDW) 14.5 11.5-14.5 N [facility] HospitalDfspbmiUWQGWBVNGX4552-14-19 08:47:00 Test Item Value Reference Range Interpretation Comments MCHC (test code = MCHC) 35.2 32.0-36.0 N [facility] HospitalHsofjjwWXTMNLCVQM2537-73-30 08:47:00 Test Item Value Reference Range Interpretation Comments Hgb (test code = Hgb) 9.1 12.0-16.0 L [facility] HospitalRvtwlliSAVOUPDTCN6789-36-39 08:47:00 Test Item Value Reference Range Interpretation Comments RBC (test code = RBC) 3.15 4.20-5.40 L [facility] HospitalHehfyrfQHPCGMUUGK6810-06-39 08:47:00 Test Item Value Reference Range Interpretation Comments MPV (test code = MPV) 9.0 7.4-10.4 N [facility] HospitalOspdyyaAFMCBODOFK7585-14-47 08:47:00 Test Item Value Reference Range Interpretation Comments WBC (test code = WBC) 6.3 3.7-10.4 N [facility] HospitalZfvykmwKQJELWCIPE7416-85-20 08:47:00 Test Item Value Reference Range Interpretation Comments Eosinophils # (test code 0.0 See_Comment N [A utomated message] The = Eosinophils #) system whic h generated this result tra nsmitted reference range : <=0.5. The reference r leo was not used to int erpret this result as normal/abnormal . [facility] HospitalJwruzkoMTEKQRPGLA8792-99-21 08:47:00 Test Item Value Reference Range Interpretation Comments Basophils # (test code 0.0 See_Comment N [Aut omated message] The = Basophils #) system which generated this result tra nsmitted reference range : <=0.2. The reference r leo was not used to int erpret this result as normal/abnormal . [facility] HospitalFglqzcwFKZCEUESCW1087-04-31 08:47:00 Test Item Value Reference Range Interpretation Comments Segs-Bands # (test code = Segs-Bands #) 3.8 1.5-8.1 N [facility] HospitalSyttjlwSZHZJQVMKJ7710-99-14 08:47:00 Test Item Value Reference Range Interpretation Comments Lymphocytes # (test code = Lymphocytes 2.0 1.0-5.5 N #) [facility] HospitalDoduqcqOIGIHFQCLK8237-75-30 08:47:00 Test Item Value Reference Range Interpretation Comments Basophils (test code = 0.5 See_Comment N [Aut omated message] The Basophils) system which ge nerated this result tra nsmitted reference range : <=1.0. The reference r leo was not used to int erpret this result as normal/abnormal . [facility] HospitalVqhwifsCZLSARUYGC8713-46-78 08:47:00 Test Item Value Reference Range Interpretation Comments Eosinophils (test code = 0.7 See_Comment N [A utomated message] The Eosinophils) system which ge nerated this result tra nsmitted reference range : <=4.0. The reference r leo was not used to int erpret this result as normal/abnormal . [facility] HospitalSyzfwmhGRHRUYEJVF2612-10-16 08:47:00 Test Item Value Reference Range Interpretation Comments Monocytes (test code = Monocytes) 6.2 2.0-12.0 N [facility] HospitalIrtjzftMHSAFFULIW8125-08-62 08:47:00 Test Item Value Reference Range Interpretation Comments Segs (test code = Segs) 61.1 45.0-75.0 N [facility] HospitalRqcemdrZILOKLTTML0552-89-32 08:47:00 Test Item Value Reference Range Interpretation Comments Lymphocytes (test code = Lymphocytes) 31.5 20.0-40.0 N [facility] HospitalKwcmkffZFVWAOJEZR9105-53-37 08:47:00 Test Item Value Reference Range Interpretation Comments Monocytes # (test code 0.4 See_Comment N [Aut omated message] The = Monocytes #) system which generated this result tra nsmitted reference range : <=0.8. The reference r leo was not used to int erpret this result as normal/abnormal . [facility]leTgqiyvsHWABBYMDV6138-20-05 10:54:00 Test Item Value Reference Range Interpretation Comments CO2 (test code = CO2) 27 24-32 N [facility]leAjoylrfLHKLEPYKQ8014-70-87 10:54:00 Test Item Value Reference Range Interpretation Comments Chloride Lvl (test code = Chloride Lvl) 104 95-109 N [facility]leCuecqfbOYFOXLTCH8244-46-70 10:54:00 Test Item Value Reference Range Interpretation Comments Creatinine Lvl (test code = Creatinine 0.5 0.5-1.4 N Lvl) [facility]leItcrkmyLLAPATWAV6276-22-77 10:54:00 Test Item Value Reference Range Interpretation Comments BUN (test code = BUN) 10 7-22 N [facility]lePnjiyrkCVEUTKHGJ7703-55-03 10:54:00 Test Item Value Reference Range Interpretation Comments Potassium Lvl (test code = Potassium 4.1 3.5-5.1 N Lvl) [facility] AzleXipdjiyQRWMEYQWF3971-71-06 10:54:00 Test Item Value Reference Range Interpretation Comments Sodium Lvl (test code = Sodium Lvl) 141 135-145 N [facility] AzleWearoyyOAPEOMZER2718-10-80 10:54:00 Test Item Value Reference Range Interpretation Comments Glucose Lvl (test code = Glucose Lvl) 83 [facility] AzleOjhfyjhGIZCCNSYD9195-18-78 10:54:00 Test Item Value Reference Range Interpretation Comments Calcium Lvl (test code = Calcium Lvl) 8.4 8.5-10.5 L [facility]leAwbwyhtEACDJUQIU3773-76-56 10:54:00 Test Item Value Reference Range Interpretation Comments AGAP (test code = AGAP) 14.1 10.0-20.0 N [facility] HospitalMzywpkmRZCRZUDVPF3239-21-51 10:54:00 Test Item Value Reference Range Interpretation Comments Hct (test code = Hct) 35.5 36.0-48.0 L [facility] HospitalAneijwuSSMXUDTCTI2783-13-45 10:54:00 Test Item Value Reference Range Interpretation Comments WBC (test code = WBC) 4.7 3.7-10.4 N [facility] HospitalJwypjzaPERAJNXUDL8164-54-17 10:54:00 Test Item Value Reference Range Interpretation Comments MCV (test code = MCV) 92.6 81.0-99.0 N [facility] HospitalDfqsyczWJQVJGONPD4696-13-94 10:54:00 Test Item Value Reference Range Interpretation Comments MCH (test code = MCH) 31.4 pg 27.0-31.0 H [facility] HospitalSxgjwraNQLUQJZZPD7704-62-15 10:54:00 Test Item Value Reference Range Interpretation Comments RBC (test code = RBC) 3.84 4.20-5.40 L [facility] HospitalGvkhiwrYKWABGWJEM5969-45-42 10:54:00 Test Item Value Reference Range Interpretation Comments Hgb (test code = Hgb) 12.1 12.0-16.0 N [facility] HospitalDrawrdoZAEWHKRXTR5364-86-41 10:54:00 Test Item Value Reference Range Interpretation Comments Platelet (test code = Platelet) 287 133-450 N [facility] HospitalFxarhvxTUPTGYAREV9157-66-12 10:54:00 Test Item Value Reference Range Interpretation Comments RDW (test code = RDW) 12.7 11.5-14.5 N [facility] HospitalMcpyamlJIQDYOFDAB4215-43-05 10:54:00 Test Item Value Reference Range Interpretation Comments MCHC (test code = MCHC) 33.9 32.0-36.0 N [facility] HospitalMfptobnZWQBFEEUTB7386-08-42 10:54:00 Test Item Value Reference Range Interpretation Comments MPV (test code = MPV) 7.2 7.4-10.4 L [facility] HospitalZbknoirUWXPTKRVNP7923-87-31 10:54:00 Test Item Value Reference Range Interpretation Comments INR (test code = INR) 0.95 0.85-1.17 N [facility] HospitalJscgnmoTFPAASSTRO4451-92-38 10:54:00 Test Item Value Reference Range Interpretation Comments PT (test code = PT) 12.7 s 12.0-14.7 N [facility] HospitalVwnmxcgGPDWPQUUYT8140-81-95 10:54:00 Test Item Value Reference Range Interpretation Comments PTT (test code = PTT) 28.5 s 22.9-35.8 N [facility] HospitalYpcsigtZKWUWSPIZC1889-42-95 10:54:00 Test Item Value Reference Range Interpretation Comments Eosinophils # (test code 0.1 See_Comment N [A utomated message] The = Eosinophils #) system whic h generated this result tra nsmitted reference range : <=0.5. The reference r leo was not used to int erpret this result as normal/abnormal . [facility] HospitalTdgeqbiZFACEEDJMC8031-17-14 10:54:00 Test Item Value Reference Range Interpretation Comments Basophils # (test code 0.0 See_Comment N [Aut omated message] The = Basophils #) system which generated this result tra nsmitted reference range : <=0.2. The reference r leo was not used to int erpret this result as normal/abnormal . [facility] HospitalMafjviiFNZDNPTOEH8618-06-38 10:54:00 Test Item Value Reference Range Interpretation Comments Basophils (test code = 0.4 See_Comment N [Aut omated message] The Basophils) system which ge nerated this result tra nsmitted reference range : <=1.0. The reference r leo was not used to int erpret this result as normal/abnormal . [facility] HospitalSugufumAYYABHGSAZ3041-91-71 10:54:00 Test Item Value Reference Range Interpretation Comments Segs-Bands # (test code = Segs-Bands #) 2.1 1.5-8.1 N [facility] HospitalVntynbqEUZLALDWRB6820-93-04 10:54:00 Test Item Value Reference Range Interpretation Comments Monocytes (test code = Monocytes) 9.0 2.0-12.0 N [facility] HospitalIhtghqfWCEZFPRTZU0877-79-16 10:54:00 Test Item Value Reference Range Interpretation Comments Eosinophils (test code = 2.4 See_Comment N [A utomated message] The Eosinophils) system which ge nerated this result tra nsmitted reference range : <=4.0. The reference r leo was not used to int erpret this result as normal/abnormal . [facility] HospitalDwdhakvPIBEWBRDYL9124-41-77 10:54:00 Test Item Value Reference Range Interpretation Comments Monocytes # (test code 0.4 See_Comment N [Aut omated message] The = Monocytes #) system which generated this result tra nsmitted reference range : <=0.8. The reference r leo was not used to int erpret this result as normal/abnormal . [facility] HospitalNfexbezZQIRYNEAET0276-04-07 10:54:00 Test Item Value Reference Range Interpretation Comments Lymphocytes # (test code = Lymphocytes 2.0 1.0-5.5 N #) [facility] HospitalXqzxufxMASTRHNKFR6310-45-71 10:54:00 Test Item Value Reference Range Interpretation Comments Lymphocytes (test code = Lymphocytes) 42.8 20.0-40.0 H [facility] HospitalSvhembaUVXVFPLITW1904-77-52 10:54:00 Test Item Value Reference Range Interpretation Comments Segs (test code = Segs) 45.4 45.0-75.0 N [facility]leTusgfurUVYMTXOWP6874-77-43 10:02:00 Test Item Value Reference Range Interpretation Comments Chloride Lvl (test code = Chloride Lvl) 105 95-109 N [facility] AzleBaintemVZNDPMCQL6994-54-30 10:02:00 Test Item Value Reference Range Interpretation Comments Potassium Lvl (test code = Potassium 4.1 3.5-5.1 N Lvl) [facility]leBoamclsBFRCSWTZY0679-39-44 10:02:00 Test Item Value Reference Range Interpretation Comments Sodium Lvl (test code = Sodium Lvl) 143 135-145 N [facility] AzleXtppyayYKWUWUAPL7423-98-05 10:02:00 Test Item Value Reference Range Interpretation Comments CO2 (test code = CO2) 29 24-32 N [facility]leAjhrxxtHCCGRIKWK4909-72-37 10:02:00 Test Item Value Reference Range Interpretation Comments Calcium Lvl (test code = Calcium Lvl) 8.7 8.5-10.5 N [facility]leXdmbzkeLWSSISHFG8743-00-34 10:02:00 Test Item Value Reference Range Interpretation Comments BUN (test code = BUN) 6 7-22 L [facility] AzleUoqyrzeASEVTVKKO5643-51-89 10:02:00 Test Item Value Reference Range Interpretation Comments Creatinine Lvl (test code = Creatinine 0.6 0.5-1.4 N Lvl) [facility]leVyvwxwrXNLLAMQUM7026-55-18 10:02:00 Test Item Value Reference Range Interpretation Comments Glucose Lvl (test code = Glucose Lvl) 118 [facility] AzleKgnmqzlJTFTLOKZO1893-39-38 10:02:00 Test Item Value Reference Range Interpretation Comments AGAP (test code = AGAP) 13.1 10.0-20.0 N [facility] HospitalWjcamiaJAMKBOWKSX5715-01-43 10:02:00 Test Item Value Reference Range Interpretation Comments Basophils # (test code 0.0 See_Comment N [Aut omated message] The = Basophils #) system which generated this result tra nsmitted reference range : <=0.2. The reference r leo was not used to int erpret this result as normal/abnormal . [facility] HospitalTyqwuyaQXDYSJEUZF0564-13-45 10:02:00 Test Item Value Reference Range Interpretation Comments Monocytes # (test code 0.3 See_Comment N [Aut omated message] The = Monocytes #) system which generated this result tra nsmitted reference range : <=0.8. The reference r leo was not used to int erpret this result as normal/abnormal . [facility] HospitalFelqbhaZIAEHNFZDZ8519-59-29 10:02:00 Test Item Value Reference Range Interpretation Comments Eosinophils # (test code 0.1 See_Comment N [A utomated message] The = Eosinophils #) system whic h generated this result tra nsmitted reference range : <=0.5. The reference r leo was not used to int erpret this result as normal/abnormal . [facility] HospitalYvxprczNJUEMKJDFN3369-83-97 10:02:00 Test Item Value Reference Range Interpretation Comments Segs-Bands # (test code = Segs-Bands #) 2.8 1.5-8.1 N [facility] HospitalWwbqiufNZMHEJFNFT1244-49-82 10:02:00 Test Item Value Reference Range Interpretation Comments Lymphocytes # (test code = Lymphocytes 1.7 1.0-5.5 N #) [facility] HospitalYooyfigWPJABKWZKT6430-14-80 10:02:00 Test Item Value Reference Range Interpretation Comments Basophils (test code = 0.6 See_Comment N [Aut omated message] The Basophils) system which ge nerated this result tra nsmitted reference range : <=1.0. The reference r leo was not used to int erpret this result as normal/abnormal . [facility] HospitalWjfabnmGNQQIEMJRN3757-16-54 10:02:00 Test Item Value Reference Range Interpretation Comments Monocytes (test code = Monocytes) 6.9 2.0-12.0 N [facility] HospitalIouvjbsOMFRHACLZB4595-14-10 10:02:00 Test Item Value Reference Range Interpretation Comments Eosinophils (test code = 2.0 See_Comment N [A utomated message] The Eosinophils) system which ge nerated this result tra nsmitted reference range : <=4.0. The reference r leo was not used to int erpret this result as normal/abnormal . [facility] HospitalHzkvsprPZLEMOJICH9900-75-89 10:02:00 Test Item Value Reference Range Interpretation Comments Segs (test code = Segs) 55.8 45.0-75.0 N [facility] HospitalAhqebtlCSNNAALBXX4960-16-52 10:02:00 Test Item Value Reference Range Interpretation Comments Lymphocytes (test code = Lymphocytes) 34.7 20.0-40.0 N [facility] HospitalCjrcewxHWJMKNILAR6397-57-51 10:02:00 Test Item Value Reference Range Interpretation Comments PTT (test code = PTT) 32.2 s 22.9-35.8 N [facility] HospitalZvaaznmQPRMFJROSA1610-33-04 10:02:00 Test Item Value Reference Range Interpretation Comments PT (test code = PT) 13.3 s 12.0-14.7 N [facility] HospitalOvfnxcbXIMZFGHMNN7468-44-99 10:02:00 Test Item Value Reference Range Interpretation Comments INR (test code = INR) 1.01 0.85-1.17 N [facility]PuebioeROEITPJZDY0422-74-88 10:02:00 Test Item Value Reference Range Interpretation Comments Hct (test code = Hct) 27.5 36.0-48.0 L [facility] HospitalGyylqghXYAMYDUIFJ5481-56-90 10:02:00 Test Item Value Reference Range Interpretation Comments RBC (test code = RBC) 3.34 4.20-5.40 L [facility] HospitalEharfcxJUKJGSTRTU4254-29-68 10:02:00 Test Item Value Reference Range Interpretation Comments Hgb (test code = Hgb) 9.7 12.0-16.0 L [facility] HospitalCbbxwjqTXORJPLLFG5626-42-03 10:02:00 Test Item Value Reference Range Interpretation Comments WBC (test code = WBC) 5.0 3.7-10.4 N [facility] HospitalWsunxquEVKSBGMQAG0078-12-26 10:02:00 Test Item Value Reference Range Interpretation Comments MPV (test code = MPV) 9.2 7.4-10.4 N [facility] HospitalAcflpytQWAEWICBZR8099-36-40 10:02:00 Test Item Value Reference Range Interpretation Comments Platelet (test code = Platelet) 240 133-450 N [facility] HospitalInbqqsxNCEJGKQBGQ5363-65-85 10:02:00 Test Item Value Reference Range Interpretation Comments RDW (test code = RDW) 14.3 11.5-14.5 N [facility] HospitalQqxekpcACCUCMYYLY7293-58-34 10:02:00 Test Item Value Reference Range Interpretation Comments MCHC (test code = MCHC) 35.2 32.0-36.0 N [facility] HospitalWhksiizMJFUCNJPSH7566-15-74 10:02:00 Test Item Value Reference Range Interpretation Comments MCH (test code = MCH) 28.9 pg 27.0-31.0 N [facility]PetcsqvKWORGXHRHU0609-34-06 10:02:00 Test Item Value Reference Range Interpretation Comments MCV (test code = MCV) 82.1 81.0-99.0 N [facility]SdtbgcdQYXHVWAVY3602-61-55 09:24:00 Test Item Value Reference Range Interpretation Comments Magnesium Lvl (test code = Magnesium 2.1 1.8-2.4 N Lvl) [facility] RegionalJdqqyqwObcleiyqgobh4175-92-68 00:32:00 Test Item Value Reference Range Interpretation Comments Culture: Aspirate/Body Fluid/Tissue (test code = Culture: Aspirate/Body Fluid/Tissue) [facility]vdddpdHpqasydwxuxs2563-64-23 00:32:00 Test Item Value Reference Range Interpretation Comments Culture: Anaerobic (test code = Culture: Anaerobic) [facility]leDowyihaEGKJCWMAC9786-46-05 17:10:00 Test Item Value Reference Range Interpretation Comments Temp Roberth (test code = Temp Roberth) 37.0 [facility]leAcradrkXLOHGSOIA5259-48-90 17:10:00 Test Item Value Reference Range Interpretation Comments O2 Sat Roberth (test code = O2 Sat Roberth) 27.0 40.0-70.0 L [facility] AzleBziyzkzLXIPMTOCC1573-68-97 17:10:00 Test Item Value Reference Range Interpretation Comments pCO2 Roberth (test code = pCO2 Roberth) 47 38-52 N [facility] AzleLscujxcYNFKWXQGZ2352-35-74 17:10:00 Test Item Value Reference Range Interpretation Comments pH Roberth (test code = pH Roberth) 7.37 7.28-7.42 N [facility]leShwdjpxVLRCMBKCN3173-79-41 17:10:00 Test Item Value Reference Range Interpretation Comments BE Roberth (test code = 1 See_Comment N [Automa rohit message] The BE Roberth) system which ge nerated this result transmit rohit reference range : <=2. The reference range was not used to interpr et this result as reji l/abnormal. [facility]leEznnxsdTVGAWIJJK2457-81-21 17:10:00 Test Item Value Reference Range Interpretation Comments HCO3 Roberth (test code = HCO3 Roberth) 27.2 22.0-26.0 H [facility]leIibkqveVJHUGBSME1096-07-20 17:10:00 Test Item Value Reference Range Interpretation Comments pO2 Roberth (test code = pO2 Roberth) 19 20-49 L [facility]EtkfubhTzuvorzntczz1103-63-81 14:18:00 Test Item Value Reference Range Interpretation Comments Culture: Blood (test code = Culture: Blood) [facility]cedQcqnntwgmgwh7034-08-01 14:18:00 Test Item Value Reference Range Interpretation Comments Culture: Wound/Abscess w/Gram Stain (test code = Culture: Wound/Abscess w/Gram Stain) [facility] AzleFwckqocRTYYOKUEB7311-83-62 13:09:00 Test Item Value Reference Range Interpretation Comments Lactic Acid Lvl (test code = Lactic 1.0 0.5-2.2 N Acid Lvl) [facility] AzleFahawblXVKFSLUZE4545-81-14 12:20:00 Test Item Value Reference Range Interpretation Comments U Preg (test code = U Negative (09/01/2011 N Preg) 07:20:00) [facility]WnjnwnsIUWQTZJUIG7068-53-26 12:20:00 Test Item Value Reference Range Interpretation Comments UA Sq Epi (test code Occasional /LPF N = UA Sq Epi) (09/01/2011 07:20:00) [facility] RegionalPdjgocvLFETPDTXEA3526-81-26 12:20:00 Test Item Value Reference Range Interpretation Comments UA Leuk Est (test Negative (09/01/2011 N code = UA Leuk Est) 07:20:00) [facility] RegionalDmbevkeKBIRGNZQRF1654-08-35 12:20:00 Test Item Value Reference Range Interpretation Comments UA Nitrite (test code Negative (09/01/2011 N = UA Nitrite) 07:20:00) [facility]vuicyvOEKRUZCHLM2303-57-96 12:20:00 Test Item Value Reference Range Interpretation Comments UA Urobilinogen (test code = UA 0.2 0.1-1.0 N Urobilinogen) [facility]ieDmdjjjnTTRGOXJAMC7931-69-66 12:20:00 Test Item Value Reference Range Interpretation Comments UA Blood (test code = Negative (09/01/2011 N UA Blood) 07:20:00) [facility]ieQnjaqxsJXFHPROFCC9544-79-12 12:20:00 Test Item Value Reference Range Interpretation Comments UA Ketones (test code = >=80 mg/dL A UA Ketones) *ABN*(09/01/2011 07:20:00) [facility]ieQyscpvpXPDNFJZAUQ3886-80-76 12:20:00 Test Item Value Reference Range Interpretation Comments UA Protein (test code Negative (09/01/2011 N = UA Protein) 07:20:00) [facility] RegionalTptqjevHGRADMKEQV1803-30-26 12:20:00 Test Item Value Reference Range Interpretation Comments UA pH (test code = UA pH) 6.0 1 5.0-8.0 N [facility] RegionalOdmhudrTHEPUDHEGT3857-46-59 12:20:00 Test Item Value Reference Range Interpretation Comments UA Bili (test code = Negative (09/01/2011 N UA Bili) 07:20:00) [facility] RegionalZwqccyxUKFHIFKIGC5787-93-57 12:20:00 Test Item Value Reference Range Interpretation Comments UA Glucose (test code = >=1000 mg/dL A UA Glucose) *ABN*(09/01/2011 07:20:00) [facility]JtqvpspRXXKIDYSNQ6655-16-24 12:20:00 Test Item Value Reference Range Interpretation Comments UA Spec Grav (test code = UA Spec 1.035 1 H Grav) [facility] CenterFloisesEKYENRPOBW3946-88-99 12:20:00 Test Item Value Reference Range Interpretation Comments UA Turbidity (test code = Clear (09/01/2011 N UA Turbidity) 07:20:00) [facility]RtzfqhqIGJFRTMDEL0546-59-23 12:20:00 Test Item Value Reference Range Interpretation Comments UA Color (test code = Yellow *NA*(09/01/2011 UA Color) 07:20:00) [facility]leKrkcnfiELNEQJQES8510-42-31 08:00:00 Test Item Value Reference Range Interpretation Comments Lactic Acid Lvl (test code = Lactic 2.8 0.5-2.2 H Acid Lvl) [facility] AzleTzlybfxULGGPHXJE8840-68-11 07:47:00 Test Item Value Reference Range Interpretation Comments Magnesium Lvl (test code = Magnesium 1.5 1.8-2.4 L Lvl) [facility] HospitalUhmotckQIRDGWXLES8367-28-07 07:47:00 Test Item Value Reference Range Interpretation Comments Polychrom (test code = Slight (09/01/2011 N Polychrom) 02:47:00) [facility] HospitalBesbggrPNWGNZCZBP7391-29-39 07:47:00 Test Item Value Reference Range Interpretation Comments Anisocyte (test code = 1+ *ABN*(09/01/2011 A Anisocyte) 02:47:00) [facility] HospitalSewlbljWUMNBUSJMD6746-24-42 07:47:00 Test Item Value Reference Range Interpretation Comments Large Plt (test code = Slight *ABN*(09/01/2011 A Large Plt) 02:47:00) [facility] HospitalNmfypkdGFBMGKCPAO8406-41-75 07:47:00 Test Item Value Reference Range Interpretation Comments Tear Cell (test code = Tear Cell) Occasional [facility] HospitalLossqekLEFTLXRKGO8651-28-88 07:47:00 Test Item Value Reference Range Interpretation Comments Elliptocyte (test code = Slight A Elliptocyte) *ABN*(09/01/2011 02:47:00) [facility] GLUCOSE RYTXMSF0377-60-66 17:02:00 Test Item Value Reference Range Interpretation Comments Comment1 (test code = Comment1) Notify RN/ [facility] GLUCOSE ZUOJRJF7161-08-06 17:02:00 Test Item Value Reference Range Interpretation Comments Gluc POC Lifscn (test code = Gluc POC 134 65-110 H Lifscn) [facility] GLUCOSE UEZRMYF2738-92-57 13:45:00 Test Item Value Reference Range Interpretation Comments Gluc POC Lifscn (test code = Gluc POC 182 65-110 H Lifscn) [facility] GLUCOSE HFDDMJF9268-60-83 13:45:00 Test Item Value Reference Range Interpretation Comments Comment1 (test code = Comment1) Not[facility] RN/ [facility] AzleXhszusjOQZXKOKFW3773-27-24 10:22:00 Test Item Value Reference Range Interpretation Comments Phosphorus (test code = Phosphorus) 3.0 2.5-4.5 N [facility] AzleMhhjirjDQWEEJRGE0209-99-61 10:22:00 Test Item Value Reference Range Interpretation Comments Magnesium Lvl (test code = Magnesium 1.8 1.8-2.4 N Lvl) [facility]leEcdhxxnHXEMUAZPG0509-32-76 10:22:00 Test Item Value Reference Range Interpretation Comments Chloride Lvl (test code = Chloride Lvl) 107 95-109 N [facility] AzleXdzqpqxKWAFTVTGH2330-20-65 10:22:00 Test Item Value Reference Range Interpretation Comments Potassium Lvl (test code = Potassium 3.0 3.5-5.1 A Lvl) [facility]leYpbrntrOYUMOMJNM3717-37-61 10:22:00 Test Item Value Reference Range Interpretation Comments Sodium Lvl (test code = Sodium Lvl) 141 135-145 N [facility] AzleGiyvymdPXEVKNLYI3701-59-62 10:22:00 Test Item Value Reference Range Interpretation Comments Creatinine Lvl (test code = Creatinine 0.6 0.5-1.4 N Lvl) [facility]leGcqyuuaLQDDTPCSY4448-69-60 10:22:00 Test Item Value Reference Range Interpretation Comments CO2 (test code = CO2) 23 24-32 L [facility]leOyszxirGNSNNHZAG0777-91-11 10:22:00 Test Item Value Reference Range Interpretation Comments Calcium Lvl (test code = Calcium Lvl) 7.3 8.5-10.5 L [facility]lePzwwdotUZDLMJUAB0326-21-78 10:22:00 Test Item Value Reference Range Interpretation Comments Glucose Lvl (test code = Glucose Lvl) 136 [facility] AzleRtmdhmzRMVYVICXB9719-85-25 10:22:00 Test Item Value Reference Range Interpretation Comments AGAP (test code = AGAP) 14.0 10.0-20.0 N [facility] AzleGrwlrczFMNPHQPCL3951-60-16 10:22:00 Test Item Value Reference Range Interpretation Comments BUN (test code = BUN) 5 7-22 L [facility] HospitalCtfaejkJNJSPOBDAQ3295-90-62 10:22:00 Test Item Value Reference Range Interpretation Comments Segs (test code = Segs) 69.6 45.0-75.0 N [facility] HospitalRkhbiqgMAFYZYFIBA6512-76-34 10:22:00 Test Item Value Reference Range Interpretation Comments Lymphocytes (test code = Lymphocytes) 21.5 20.0-40.0 N [facility] HospitalUwrmkdeKSYADWWWAF1773-05-02 10:22:00 Test Item Value Reference Range Interpretation Comments Monocytes (test code = Monocytes) 7.6 2.0-12.0 N [facility] HospitalQgdzvbrBQYRMVJMEV4502-07-11 10:22:00 Test Item Value Reference Range Interpretation Comments Eosinophils (test code = 1.0 See_Comment N [A utomated message] The Eosinophils) system which ge nerated this result tra nsmitted reference range : <=4.0. The reference r leo was not used to int erpret this result as normal/abnormal . [facility] HospitalDjmvobrOCVTSZARCS1148-64-57 10:22:00 Test Item Value Reference Range Interpretation Comments Basophils (test code = 0.3 See_Comment N [Aut omated message] The Basophils) system which ge nerated this result tra nsmitted reference range : <=1.0. The reference r leo was not used to int erpret this result as normal/abnormal . [facility] HospitalTnkejtjJNDZZHCDHK0690-05-99 10:22:00 Test Item Value Reference Range Interpretation Comments Segs-Bands # (test code = Segs-Bands #) 4.8 1.5-8.1 N [facility] HospitalTjpboxcZKGMVIFXUT7129-03-19 10:22:00 Test Item Value Reference Range Interpretation Comments Eosinophils # (test code 0.1 See_Comment N [A utomated message] The = Eosinophils #) system whic h generated this result tra nsmitted reference range : <=0.5. The reference r leo was not used to int erpret this result as normal/abnormal . [facility] HospitalOjbbxpzXHSKFHVYJV5599-99-43 10:22:00 Test Item Value Reference Range Interpretation Comments Lymphocytes # (test code = Lymphocytes 1.5 1.0-5.5 N #) [facility] HospitalIrypbwoOWYUOSPPLL8827-46-82 10:22:00 Test Item Value Reference Range Interpretation Comments Monocytes # (test code 0.5 See_Comment N [Aut omated message] The = Monocytes #) system which generated this result tra nsmitted reference range : <=0.8. The reference r leo was not used to int erpret this result as normal/abnormal . [facility] HospitalGacvetaEWDPAMUUXR8065-02-28 10:22:00 Test Item Value Reference Range Interpretation Comments Basophils # (test code 0.0 See_Comment N [Aut omated message] The = Basophils #) system which generated this result tra nsmitted reference range : <=0.2. The reference r leo was not used to int erpret this result as normal/abnormal . [facility] HospitalSiodrznQABIRPXKAM7051-53-77 10:22:00 Test Item Value Reference Range Interpretation Comments MPV (test code = MPV) 11.0 7.4-10.4 H [facility] HospitalGcrqeifSPFSRNVNJN9019-46-52 10:22:00 Test Item Value Reference Range Interpretation Comments Platelet (test code = Platelet) 161 133-450 N [facility] HospitalPdgkmitRUUNOFMZJJ7661-48-01 10:22:00 Test Item Value Reference Range Interpretation Comments MCH (test code = MCH) 29.6 pg 27.0-31.0 N [facility] HospitalKsdemqdYRVIGEMBQT9843-07-21 10:22:00 Test Item Value Reference Range Interpretation Comments MCHC (test code = MCHC) 35.4 32.0-36.0 N [facility] HospitalNorphhhJSPITWDZBD7377-11-39 10:22:00 Test Item Value Reference Range Interpretation Comments RDW (test code = RDW) 14.1 11.5-14.5 N [facility] HospitalPimsgzrHHIJRGGHLE1060-94-98 10:22:00 Test Item Value Reference Range Interpretation Comments WBC (test code = WBC) 6.8 3.7-10.4 N [facility] HospitalScivfiaGUODILVWAE9767-12-41 10:22:00 Test Item Value Reference Range Interpretation Comments MCV (test code = MCV) 83.5 81.0-99.0 N [facility] HospitalPfpvxelRILABARKHL4071-58-37 10:22:00 Test Item Value Reference Range Interpretation Comments RBC (test code = RBC) 4.44 4.20-5.40 N [facility] HospitalWfqqsbkTORMSRYWYZ5627-86-39 10:22:00 Test Item Value Reference Range Interpretation Comments Hgb (test code = Hgb) 13.1 12.0-16.0 N [facility] HospitalIaefzecEHGLEKYRXX6520-84-20 10:22:00 Test Item Value Reference Range Interpretation Comments Hct (test code = Hct) 37.1 36.0-48.0 N [facility] GLUCOSE AJOMXHC3324-90-13 02:20:00 Test Item Value Reference Range Interpretation Comments Comment1 (test code = Comment1) Notify RN/MD [facility] GLUCOSE FHOXUAD8301-15-81 02:20:00 Test Item Value Reference Range Interpretation Comments Gluc POC Lifscn (test code = Gluc POC 332 65-110 H Lifscn) [facility]leGxhnugiFIUHLJTVU4549-81-30 09:47:00 Test Item Value Reference Range Interpretation Comments Phosphorus (test code = Phosphorus) 2.5 2.5-4.5 N [facility] AzleUlovukoJORKYTPIH7955-54-97 09:47:00 Test Item Value Reference Range Interpretation Comments Glucose Lvl (test code = Glucose Lvl) 201 [facility] AzleSqotgwkNFZMQWYUI7585-49-36 09:47:00 Test Item Value Reference Range Interpretation Comments BUN (test code = BUN) 7 7-22 N [facility] AzleHrixanhOLJRQSBBF4927-66-92 09:47:00 Test Item Value Reference Range Interpretation Comments CO2 (test code = CO2) 19 24-32 L [facility] AzleBfjcxcySDSEIPNZO7164-95-01 09:47:00 Test Item Value Reference Range Interpretation Comments Creatinine Lvl (test code = Creatinine 0.3 0.5-1.4 L Lvl) [facility] AzleNqrckifIRENFWGTU3585-81-24 09:47:00 Test Item Value Reference Range Interpretation Comments Sodium Lvl (test code = Sodium Lvl) 137 135-145 N [facility] AzleJcaqovqFUHTEJUJX0723-01-81 09:47:00 Test Item Value Reference Range Interpretation Comments Chloride Lvl (test code = Chloride Lvl) 103 95-109 N [facility] AzleHjtedwoCLAPTGSHJ2497-34-14 09:47:00 Test Item Value Reference Range Interpretation Comments Potassium Lvl (test code = Potassium 3.6 3.5-5.1 N Lvl) [facility] AzleWoyyqkeGTKDZJDXK3734-80-44 09:47:00 Test Item Value Reference Range Interpretation Comments Calcium Lvl (test code = Calcium Lvl) 7.9 8.5-10.5 L [facility] AzleArtihluVNKJDIQOJ2609-36-27 09:47:00 Test Item Value Reference Range Interpretation Comments AGAP (test code = AGAP) 18.6 10.0-20.0 N [facility] AzleAtmbcsoTEIRQBJLX0053-52-51 09:47:00 Test Item Value Reference Range Interpretation Comments Magnesium Lvl (test code = Magnesium 1.6 1.8-2.4 L Lvl) [facility] HospitalQaimwopTYJFAQKLXY3681-27-15 09:47:00 Test Item Value Reference Range Interpretation Comments Basophils # (test code 0.0 See_Comment N [Aut omated message] The = Basophils #) system which generated this result tra nsmitted reference range : <=0.2. The reference r leo was not used to int erpret this result as normal/abnormal . [facility] HospitalUpwgtjpBTXMAECLTY6792-72-42 09:47:00 Test Item Value Reference Range Interpretation Comments Eosinophils (test code = 0.4 See_Comment N [A utomated message] The Eosinophils) system which ge nerated this result tra nsmitted reference range : <=4.0. The reference r leo was not used to int erpret this result as normal/abnormal . [facility] HospitalZpcgemjRHMGXOXKGJ7277-42-98 09:47:00 Test Item Value Reference Range Interpretation Comments Basophils (test code = 0.5 See_Comment N [Aut omated message] The Basophils) system which ge nerated this result tra nsmitted reference range : <=1.0. The reference r leo was not used to int erpret this result as normal/abnormal . [facility] HospitalRoljcjpLSECLSQLNZ0130-97-46 09:47:00 Test Item Value Reference Range Interpretation Comments Segs-Bands # (test code = Segs-Bands #) 5.9 1.5-8.1 N [facility] HospitalHpkgainCRJNNCVSWL9107-52-14 09:47:00 Test Item Value Reference Range Interpretation Comments Lymphocytes # (test code = Lymphocytes 1.2 1.0-5.5 N #) [facility]YcyrgqzGUFPNURRGA7667-41-70 09:47:00 Test Item Value Reference Range Interpretation Comments Monocytes # (test code 0.5 See_Comment N [Aut omated message] The = Monocytes #) system which generated this result tra nsmitted reference range : <=0.8. The reference r leo was not used to int erpret this result as normal/abnormal . [facility] HospitalIclfqmiLVEIAKRWJU7690-91-30 09:47:00 Test Item Value Reference Range Interpretation Comments Eosinophils # (test code 0.0 See_Comment N [A utomated message] The = Eosinophils #) system whic h generated this result tra nsmitted reference range : <=0.5. The reference r leo was not used to int erpret this result as normal/abnormal . [facility] HospitalOjqtaqpVWWXKQCWPQ0736-70-41 09:47:00 Test Item Value Reference Range Interpretation Comments Segs (test code = Segs) 76.9 45.0-75.0 H [facility] HospitalPvwwppjHKTXWOVJMR5439-99-96 09:47:00 Test Item Value Reference Range Interpretation Comments Lymphocytes (test code = Lymphocytes) 15.9 20.0-40.0 L [facility] HospitalUnkxcfxPQYUPRCDZN3574-63-31 09:47:00 Test Item Value Reference Range Interpretation Comments Monocytes (test code = Monocytes) 6.3 2.0-12.0 N [facility] HospitalSdytcdxSXMNEROMUH6868-40-52 09:47:00 Test Item Value Reference Range Interpretation Comments MCV (test code = MCV) 82.8 81.0-99.0 N [facility] HospitalZmlbnzpUGZZTRRKKZ7164-52-73 09:47:00 Test Item Value Reference Range Interpretation Comments Hct (test code = Hct) 39.7 36.0-48.0 N [facility] HospitalYitobfmHCGLXNOQGF8844-39-19 09:47:00 Test Item Value Reference Range Interpretation Comments MCH (test code = MCH) 29.1 pg 27.0-31.0 N [facility] HospitalMkedcdkWDZAKSCKWR7958-74-91 09:47:00 Test Item Value Reference Range Interpretation Comments Hgb (test code = Hgb) 14.0 12.0-16.0 N [facility] HospitalQvzqkwtMLTICGVAWW7662-12-96 09:47:00 Test Item Value Reference Range Interpretation Comments MCHC (test code = MCHC) 35.2 32.0-36.0 N [facility] HospitalCsvoejrXGRHRHEBAO6063-21-86 09:47:00 Test Item Value Reference Range Interpretation Comments RDW (test code = RDW) 13.9 11.5-14.5 N [facility] HospitalLmpahblTHTIITUUSD2381-47-45 09:47:00 Test Item Value Reference Range Interpretation Comments Platelet (test code = Platelet) 160 133-450 N [facility] HospitalZzivuzaZSYGKQGTVG5311-78-43 09:47:00 Test Item Value Reference Range Interpretation Comments MPV (test code = MPV) 11.9 7.4-10.4 H [facility] HospitalEbsuajgWDYJXYIBZS2804-45-54 09:47:00 Test Item Value Reference Range Interpretation Comments WBC (test code = WBC) 7.7 3.7-10.4 N [facility] HospitalFtqulqeAMYVJJGRII6760-83-36 09:47:00 Test Item Value Reference Range Interpretation Comments RBC (test code = RBC) 4.80 4.20-5.40 N [facility]leMfchmjyNNBFFZSET0114-59-74 10:28:00 Test Item Value Reference Range Interpretation Comments Phosphorus (test code = Phosphorus) 2.6 2.5-4.5 N [facility]lePaegafwZIUAESGBS3587-37-44 10:28:00 Test Item Value Reference Range Interpretation Comments Magnesium Lvl (test code = Magnesium 1.8 1.8-2.4 N Lvl) [facility]leDdeaghuXPYAWZUIX4710-55-75 10:28:00 Test Item Value Reference Range Interpretation Comments Potassium Lvl (test code = Potassium 3.7 3.5-5.1 N Lvl) [facility]leQiqgkflDCFAANLOP5715-31-68 10:28:00 Test Item Value Reference Range Interpretation Comments Sodium Lvl (test code = Sodium Lvl) 137 135-145 N [facility]leYmwbrgcCRACOCOVC8140-45-40 10:28:00 Test Item Value Reference Range Interpretation Comments Creatinine Lvl (test code = Creatinine 0.6 0.5-1.4 N Lvl) [facility]leAkfvvcvBJXEIISDM1063-53-95 10:28:00 Test Item Value Reference Range Interpretation Comments BUN (test code = BUN) 16 7-22 N [facility] AzleNwalkleJHXHASGYC4899-69-50 10:28:00 Test Item Value Reference Range Interpretation Comments Glucose Lvl (test code = Glucose Lvl) 200 [facility]leCgijqmcUDTXNKXBQ6915-57-94 10:28:00 Test Item Value Reference Range Interpretation Comments Calcium Lvl (test code = Calcium Lvl) 8.3 8.5-10.5 L [facility]leCmzrcclQHQUZUYPJ8760-19-39 10:28:00 Test Item Value Reference Range Interpretation Comments AGAP (test code = AGAP) 19.7 10.0-20.0 N [facility] AzleHdygyxrOPCYBGGOA9515-72-09 10:28:00 Test Item Value Reference Range Interpretation Comments Chloride Lvl (test code = Chloride Lvl) 99 95-109 N [facility] AzleJhtbcqlVMRDPKVDV6120-83-66 10:28:00 Test Item Value Reference Range Interpretation Comments CO2 (test code = CO2) 22 24-32 L [facility] HospitalGzmrznqJLTGVJKWRJ6484-32-73 10:28:00 Test Item Value Reference Range Interpretation Comments Platelet (test code = Platelet) 172 133-450 N [facility] HospitalGvhxubnFTPNEKUBLQ7281-65-91 10:28:00 Test Item Value Reference Range Interpretation Comments MPV (test code = MPV) 12.0 7.4-10.4 H [facility] HospitalNgokpwnEENJQOXMTS3239-55-44 10:28:00 Test Item Value Reference Range Interpretation Comments WBC (test code = WBC) 7.3 3.7-10.4 N [facility] HospitalIqilolcUQTOQFOECB4749-31-22 10:28:00 Test Item Value Reference Range Interpretation Comments RDW (test code = RDW) 14.6 11.5-14.5 H [facility] HospitalBhmjauwPZNZYJNTGG0950-78-56 10:28:00 Test Item Value Reference Range Interpretation Comments MCHC (test code = MCHC) 35.0 32.0-36.0 N [facility] HospitalLzonhumNFPSUJGDSO1342-58-52 10:28:00 Test Item Value Reference Range Interpretation Comments RBC (test code = RBC) 4.54 4.20-5.40 N [facility] HospitalGdafmdtBLDZNYGZYM6334-69-41 10:28:00 Test Item Value Reference Range Interpretation Comments Hct (test code = Hct) 37.6 36.0-48.0 N [facility] HospitalAcxndpbGGNWHXJAET9893-94-91 10:28:00 Test Item Value Reference Range Interpretation Comments MCV (test code = MCV) 82.9 81.0-99.0 N [facility] HospitalQjzqzhaMPMVHEYEJB8189-52-15 10:28:00 Test Item Value Reference Range Interpretation Comments MCH (test code = MCH) 29.0 pg 27.0-31.0 N [facility] HospitalZioebfrJZFHYLOYJD1949-02-95 10:28:00 Test Item Value Reference Range Interpretation Comments Hgb (test code = Hgb) 13.2 12.0-16.0 N [facility] HospitalPdhkoxkOVILAFVFSO2565-39-60 10:28:00 Test Item Value Reference Range Interpretation Comments Elliptocyte (test code = Slight A Elliptocyte) *ABN*(08/21/2011 04:28:00) [facility] HospitalAgamyscUMQCZWVDMD7875-78-23 10:28:00 Test Item Value Reference Range Interpretation Comments Polychrom (test code = Slight (08/21/2011 N Polychrom) 04:28:00) [facility] HospitalShmmxnfUVPYKJBLEM3912-53-62 10:28:00 Test Item Value Reference Range Interpretation Comments Basophils # (test code 0.0 See_Comment N [Aut omated message] The = Basophils #) system which generated this result tra nsmitted reference range : <=0.2. The reference r leo was not used to int erpret this result as normal/abnormal . [facility] HospitalDoudjwdAHTZYVMIJJ8445-29-71 10:28:00 Test Item Value Reference Range Interpretation Comments Hypochrom (test code = Slight (08/21/2011 N Hypochrom) 04:28:00) [facility] HospitalWdfwnybAYQZHZUGGS5202-98-89 10:28:00 Test Item Value Reference Range Interpretation Comments Monocytes # (test code 0.6 See_Comment N [Aut omated message] The = Monocytes #) system which generated this result tra nsmitted reference range : <=0.8. The reference r leo was not used to int erpret this result as normal/abnormal . [facility] HospitalDupvhbiIWEGGWLMHF4665-39-96 10:28:00 Test Item Value Reference Range Interpretation Comments Eosinophils # (test code 0.0 See_Comment N [A utomated message] The = Eosinophils #) system whic h generated this result tra nsmitted reference range : <=0.5. The reference r leo was not used to int erpret this result as normal/abnormal . [facility] HospitalUalbuviLTQCGAPQRQ8390-20-40 10:28:00 Test Item Value Reference Range Interpretation Comments Segs-Bands # (test code = Segs-Bands #) 5.3 1.5-8.1 N [facility] HospitalHidgwaxLSCDHGOJZZ5201-58-64 10:28:00 Test Item Value Reference Range Interpretation Comments Lymphocytes # (test code = Lymphocytes 1.3 1.0-5.5 N #) [facility] HospitalApxdtduQNGLOZDZII1422-69-02 10:28:00 Test Item Value Reference Range Interpretation Comments Basophils (test code = 0.5 See_Comment N [Aut omated message] The Basophils) system which ge nerated this result tra nsmitted reference range : <=1.0. The reference r leo was not used to int erpret this result as normal/abnormal . [facility] HospitalBljonuxNLXQTUETXD6962-26-30 10:28:00 Test Item Value Reference Range Interpretation Comments Monocytes (test code = Monocytes) 8.5 2.0-12.0 N [facility] HospitalPhfknspVZJNYAFMWG0294-33-58 10:28:00 Test Item Value Reference Range Interpretation Comments Eosinophils (test code = 0.3 See_Comment N [A utomated message] The Eosinophils) system which ge nerated this result tra nsmitted reference range : <=4.0. The reference r leo was not used to int erpret this result as normal/abnormal . [facility] HospitalVnwvtfuXPWSJXINTT1757-32-78 10:28:00 Test Item Value Reference Range Interpretation Comments Lymphocytes (test code = Lymphocytes) 17.3 20.0-40.0 L [facility] HospitalUnrcnfnJKPQEMJGEM7175-30-20 10:28:00 Test Item Value Reference Range Interpretation Comments Segs (test code = Segs) 73.4 45.0-75.0 N [facility] GLUCOSE TKHCVEL7642-00-15 07:47:00 Test Item Value Reference Range Interpretation Comments Comment2 (test code = Comment2) Verify w/Lab [facility]leActcfipYOYSSLAVS2814-51-34 21:58:00 Test Item Value Reference Range Interpretation Comments S Preg (test code = S Negative (08/19/2011 N Preg) 15:58:00) [facility]leKywygyaWTROGDZYQ9121-75-22 21:58:00 Test Item Value Reference Range Interpretation Comments Lipase Lvl (test code = Lipase Lvl) 169 73-393 N [facility] AzleUxpfivvESUJRNESR4079-01-76 21:58:00 Test Item Value Reference Range Interpretation Comments ALT (test code = ALT) 54 See_Comment N [Auto mated message] The system which ge nerated this result transmit rohit reference range : <=65. The reference range was not used to interpr et this result as reji l/abnormal. [facility]leXxfimgaWPCWPGVZY8798-16-40 21:58:00 Test Item Value Reference Range Interpretation Comments Alk Phos (test code = Alk Phos) 110 39-136 N [facility] AzleTjllkgyBRWQXJRXY9861-36-96 21:58:00 Test Item Value Reference Range Interpretation Comments Bili Direct (test code 0.1 See_Comment N [Aut omated message] The = Bili Direct) system which generated this result tra nsmitted reference range : <=0.3. The reference r leo was not used to int erpret this result as reji l/abnormal. [facility] AzleMaucqtaLEZZIAYVW1025-67-10 21:58:00 Test Item Value Reference Range Interpretation Comments Bili Total (test code = Bili Total) 0.9 0.2-1.3 N [facility] AzleLrldjqwXIWDYXZIQ3788-69-47 21:58:00 Test Item Value Reference Range Interpretation Comments Albumin Lvl (test code = Albumin Lvl) 4.4 3.5-5.0 N [facility] AzleJtfekfwPBAZMVLAS9750-28-16 21:58:00 Test Item Value Reference Range Interpretation Comments Total Protein (test code = Total 8.8 6.4-8.4 H Protein) [facility] AzleAfjnntyXKALOBEAV3606-03-94 21:58:00 Test Item Value Reference Range Interpretation Comments Bili Indirect (test 0.8 See_Comment N [Automa rohit message] The code = Bili Indirect) system which generated this result tra nsmitted reference range : <=1.0. The reference r leo was not used to int erpret this result as normal/abnormal . [facility] AzleTnuosylIMJNTOTIW4874-52-92 21:58:00 Test Item Value Reference Range Interpretation Comments AST (test code = AST) 36 See_Comment N [Auto mated message] The system which ge nerated this result transmit rhoit reference range : <=37. The reference range was not used to interpr et this result as reji l/abnormal. [facility]leMtuuvidDORTIPRFK8681-53-41 21:58:00 Test Item Value Reference Range Interpretation Comments Globulin (test code = Globulin) 4.4 2.0-4.0 H [facility]OefthvnUMPSRGDSS5623-12-75 21:58:00 Test Item Value Reference Range Interpretation Comments A/G Ratio (test code = A/G Ratio) 1.0 0.7-1.6 N [facility]QtpdthcZVTMGVBTGU4335-76-74 21:58:00 Test Item Value Reference Range Interpretation Comments UA Bacteria (test code Occasional /HPF N = UA Bacteria) (08/19/2011 15:58:00) [facility] RegionalNxoxsrcYLOYXZJWFU4333-22-96 21:58:00 Test Item Value Reference Range Interpretation Comments UA RBC (test 3-5 /HPF See_Comment A [Automated mes pastor] code = UA RBC) *ABN*(08/19/2011 The syste m which 15:58:00) generated this result transmitted ref erence range: <=2. The reference range was not used to int erpret this result as normal/abnormal . [facility] RegionalNekfageXRGIHHZHSS0429-67-85 21:58:00 Test Item Value Reference Range Interpretation Comments UA WBC (test code = 3 See_Comment [Automa rohit message] The UA WBC) system which ge nerated this result transmit rohit reference range : <=5. The reference range was not used to interpr et this result as reji l/abnormal. [facility]gimnbfIJKPLYHNEU0683-11-57 21:58:00 Test Item Value Reference Range Interpretation Comments UA Mucus (test code = Few /LPF (08/19/2011 N UA Mucus) 15:58:00) [facility] RegionalDjugpgqZUNHPSDCWY7399-08-47 21:58:00 Test Item Value Reference Range Interpretation Comments UA Amorph Destiny (test Occasional /HPF A code = UA Amorph *ABN*(08/19/2011 Destiny) 15:58:00) [facility]BnwvtgwFZRQXVYCXD3653-88-71 21:58:00 Test Item Value Reference Range Interpretation Comments UA Urobilinogen (test code = UA 0.2 0.1-1.0 N Urobilinogen) [facility]ieCwntupjWBPFXYDGJE1029-82-85 21:58:00 Test Item Value Reference Range Interpretation Comments UA Sq Epi (test code = Rare /LPF (08/19/2011 N UA Sq Epi) 15:58:00) [facility]ieNtgocylJEYIHYDLQO2054-75-05 21:58:00 Test Item Value Reference Range Interpretation Comments Micro? (test code = Performed (08/19/2011 N Micro?) 15:58:00) [facility]rxymuVVHDHBBVGG3737-74-67 21:58:00 Test Item Value Reference Range Interpretation Comments UA Leuk Est (test Negative (08/19/2011 N code = UA Leuk Est) 15:58:00) [facility] CenterHfxiuizEKANDEUSLW2626-82-73 21:58:00 Test Item Value Reference Range Interpretation Comments UA Nitrite (test code Negative (08/19/2011 N = UA Nitrite) 15:58:00) [facility] CenterYvktuhqVJBHZGHGOA3998-81-74 21:58:00 Test Item Value Reference Range Interpretation Comments UA pH (test code = UA pH) 5.5 1 5.0-8.0 N [facility] CenterIzmtbcbCCGFPCOGJY0821-57-68 21:58:00 Test Item Value Reference Range Interpretation Comments UA Blood (test code = Trace *ABN*(08/19/2011 A UA Blood) 15:58:00) [facility] CenterQsdkhcoMTBBDZMEQN4654-62-46 21:58:00 Test Item Value Reference Range Interpretation Comments UA Bili (test code = Negative (08/19/2011 N UA Bili) 15:58:00) [facility] CenterPquphypQEMXSUXSJW6049-27-67 21:58:00 Test Item Value Reference Range Interpretation Comments UA Ketones (test code = 80 mg/dL A UA Ketones) *ABN*(08/19/2011 15:58:00) [facility] CenterQyzjcvvBWKSLWCETH0465-50-64 21:58:00 Test Item Value Reference Range Interpretation Comments UA Glucose (test code = >=1000 mg/dL A UA Glucose) *ABN*(08/19/2011 15:58:00) [facility] CenterJyltytfUZPPUIALDL4466-18-78 21:58:00 Test Item Value Reference Range Interpretation Comments UA Protein (test code Negative (08/19/2011 N = UA Protein) 15:58:00) [facility] CenterGwkywlbDDJKTEZTYG2751-32-77 21:58:00 Test Item Value Reference Range Interpretation Comments UA Turbidity (test code Slight Cloudy N = UA Turbidity) (08/19/2011 15:58:00) [facility] CenterOadqzyuNAGTUNRWZR8826-55-52 21:58:00 Test Item Value Reference Range Interpretation Comments UA Spec Grav (test code = UA Spec 1.025 1 Grav) [facility] CenterYahroknFQQGJQYPDX7312-47-25 21:58:00 Test Item Value Reference Range Interpretation Comments UA Color (test code = Yellow (08/19/2011 N UA Color) 15:58:00) [facility]leAzjznybJKGJKITZK9427-04-90 21:13:00 Test Item Value Reference Range Interpretation Comments AST (test code = AST) 23 See_Comment N [Auto mated message] The system which ge nerated this result transmit rohit reference range : <=37. The reference range was not used to interpr et this result as reji l/abnormal. [facility]leMkcftqnFHOFVDXNC2616-32-12 21:13:00 Test Item Value Reference Range Interpretation Comments Bili Total (test code = Bili Total) 1.0 0.2-1.3 N [facility] AzleLwlmmiqLZRQAHWJW9840-87-43 21:13:00 Test Item Value Reference Range Interpretation Comments Alk Phos (test code = Alk Phos) 115 39-136 N [facility] AzleWmbkzzoBPTEHFJHW2116-99-23 21:13:00 Test Item Value Reference Range Interpretation Comments ALT (test code = ALT) 56 See_Comment N [Auto mated message] The system which ge nerated this result transmit rohit reference range : <=65. The reference range was not used to interpr et this result as reji l/abnormal. [facility] AzleBboizsrFPVCNZPNV4608-98-98 21:13:00 Test Item Value Reference Range Interpretation Comments Total Protein (test code = Total 9.0 6.4-8.4 H Protein) [facility] AzleBnypzagJFWQDGBAH8257-56-51 21:13:00 Test Item Value Reference Range Interpretation Comments Albumin Lvl (test code = Albumin Lvl) 4.8 3.5-5.0 N [facility] AzleKgcrmibQGATNOMVF7268-85-09 21:13:00 Test Item Value Reference Range Interpretation Comments Globulin (test code = Globulin) 4.2 2.0-4.0 H [facility] AzleGqimkwnABWHXWAGH2572-51-38 21:13:00 Test Item Value Reference Range Interpretation Comments A/G Ratio (test code = A/G Ratio) 1.1 0.7-1.6 N [facility] AzleCvepxxxVFRWCQTXQ3591-53-81 21:13:00 Test Item Value Reference Range Interpretation Comments B/C Ratio (test code = B/C Ratio) 30 6-25 H [facility] HospitalOzxfkakRIQSXECVZK7746-69-50 21:13:00 Test Item Value Reference Range Interpretation Comments RBC Morph (test code = Normal (08/19/2011 N RBC Morph) 15:13:00) [facility] HospitalXdadarhSALFFMVDYO9346-68-16 21:13:00 Test Item Value Reference Range Interpretation Comments Large Plt (test code = Slight *ABN*(08/19/2011 A Large Plt) 15:13:00) [facility] HospitalWniyqoyGZRWNGXUNU3668-15-86 21:13:00 Test Item Value Reference Range Interpretation Comments Atypical Lymphs (test code = Atypical 0.0 N Lymphs) [facility] HospitalUlbkffaNPFFOHMMOL5391-86-69 21:13:00 Test Item Value Reference Range Interpretation Comments Bands (test code = 0.0 See_Comment N [Automat ed message] The Bands) system which ge nerated this result transmit rohit reference range : <=11.0. The reference r leo was not used to interpr et this result as reji l/abnormal. [facility] AzleXtkfevoTLVWTMCPU3463-18-76 21:10:00 Test Item Value Reference Range Interpretation Comments O2 Sat Roberth (test code = O2 Sat Roberth) 74.0 40.0-70.0 H [facility] AzleQxwazlrCEXZWMWLZ5077-85-87 21:10:00 Test Item Value Reference Range Interpretation Comments Temp Roberth (test code = Temp Roberth) 37.0 [facility] AzleQtsqrwrCQGQNCFZV1051-45-97 21:10:00 Test Item Value Reference Range Interpretation Comments pO2 Roberth (test code = pO2 Roberth) 42 20-49 N [facility] AzleGtnlftiNHQYOSLQT8227-49-12 21:10:00 Test Item Value Reference Range Interpretation Comments HCO3 Roberth (test code = HCO3 Roberth) 17.3 22.0-26.0 L [facility] AzleSpgilmlHGDSOCBUP5685-88-06 21:10:00 Test Item Value Reference Range Interpretation Comments pH Roberth (test code = pH Roberth) 7.34 7.28-7.42 N [facility] AzleTsczbhpQZOUERWBD8715-01-19 21:10:00 Test Item Value Reference Range Interpretation Comments pCO2 Roberth (test code = pCO2 Roberth) 32 38-52 L [facility]PhfchyhPWXESFZSV3967-85-02 21:10:00 Test Item Value Reference Range Interpretation Comments BE Roberth (test code = -7 See_Comment L [Automa rohit message] The BE Roberth) system which ge nerated this result transmit rohit reference range : <=2. The reference range was not used to interpr et this result as reji l/abnormal. [facility] RegionalLfvvyjsCAESVOQHCY2350-04-26 20:34:00 Test Item Value Reference Range Interpretation Comments CDC-HIV 1/2 Ab (test Negative *NA*(08/19/2011 code = CDC-HIV 1/2 14:34:00) Ab) [facility]
[2021-09-12] MEDS ORDERED: METOCLOPRAMIDE 10 MG/2mL INJ ONE (22:01)
[2021-09-12] MEDS ORDERED: DIPHENHYDRAMINE 50 MG/ML VIAL ONE (22:02)
[2021-09-12] MEDS ORDERED: ONDANSETRON 4 MG/2 ML VIAL ONE (22:02)
[2021-09-12] MEDS ORDERED: LORazepam 2 MG/ML VIAL ONE (22:02)
[2021-09-12 22:11] LABS: Absolute Lymphocytes (CBC) 0.9 K/uL (0.7-4.9); Hematocrit 26.3 % (36.0-45.0); Lymphocytes % 30.5 % (15.3-44.8); MPV 11.1 fL (7.6-11.3)
[2021-09-12 22:22] LABS: Albumin 3.1 g/dL (3.4-5.0); Bilirubin Total 0.5 mg/dL (0.2-1.0); Potassium 3.6 mmol/L (3.5-5.1); Protein, Total 6.5 g/dL (6.4-8.2)
--- NOTE | 2021-09-12 22:46 | EDPHYS ---
Physician Documentation [facility] Name: Cathi Zaldivar Age: 40 yrs Sex: Female : 1980 Arrival Date: 09/12/2021 Time: 20:26 Bed 4 Private MD: ED Physician José Miguel Saleh HPI: 09/12 20:39 This 40 yrs old Female presents to ER via EMS with complaints of Nausea, ms3 Vomiting, Abdominal pain. 20:39 The patient presents to the emergency department with nausea, that is severe, vomiting, ms3 that is continuous, described as abdominal pain, of the abdomen diffusely, described as achy, and does not radiate. Onset: The symptoms/episode began/occurred acutely, 3 day(s) ago. Possible causes: Gastroparesis. The symptoms are aggravated by nothing. The symptoms are alleviated by nothing. Associated signs and symptoms: The patient has no apparent associated signs or symptoms. 40-year-old female with past medical history of mental problems, congestive heart failure, chronic kidney disease, gastroparesis presents for nausea, vomiting, abdominal pain has been ongoing for 3 days. Patient states her pain is a 10/10 and described as aching. Patient denies alleviating or inciting factors. Patient states she attempted to use a heating pad without relief. Patient denies fevers, chills. Patient states the symptoms are similar to her previous gastroparesis.. 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 sm5 Historical: - Allergies: 20:29 ambien; sm5 20:29 Codeine; sm5 20:29 GUAIFENESIN; sm5 20:29 Ibuprofen; sm5 20:29 Lisinopril; sm5 20:29 Morphine; sm5 20:29 Nitrofurantoin Macrocrystal; sm5 20:29 PENICILLINS; sm5 20:29 Prolixin; sm5 20:29 zolpidem tartrate; sm5 - PMHx: 20:29 "mental problems"; CHF; chronic kidney disease; cyclic vomiting syndrome; Diabetes - sm5 NIDDM; Dialysis; m-w-f; ENCEPHALOPATHY; Gastroparesis; Hypertension; ibs; liver failure; PERIPHERAL NEUROPATHY; pseudo aneurysm R groin; Seizures; - PSHx: 20:29 section; dialysis catheter R chest wall; eye removed; sm5 - Immunization history:: Client reports having NOT received the Covid vaccine. - Social history:: Smoking status: Patient reports the use of cigarette tobacco products, smokes one-half pack cigarettes per day. ROS: 20:39 Constitutional: Negative for fever, and chills. Eyes: Negative for injury, pain, ms3 redness, and discharge, Neck: Negative for injury, pain, and swelling, Cardiovascular: Negative for chest pain, and palpitations. Respiratory: Negative for shortness of breath, cough, wheezing, and pleuritic chest pain, Back: Negative for injury and pain, MS/Extremity: Negative for injury and deformity, Skin: Negative for injury, rash, and discoloration, Neuro: Negative for headache, weakness, numbness, tingling. 20:39 Abdomen/GI: Positive for abdominal pain, nausea and vomiting. Exam: 20:39 Constitutional: This is a well developed, well nourished patient who is awake, alert, ms3 and in no acute distress. Neck: Trachea midline, no cervical lymphadenopathy. Supple, full range of motion without nuchal rigidity, or vertebral point tenderness. No Meningismus. Chest/axilla: Normal chest wall appearance and motion. Nontender with no deformity. Cardiovascular: Regular rate and rhythm with a normal S1 and S2. No gallops, murmurs, or rubs. Normal PMI, no JVD. No pulse deficits. Respiratory: Lungs have equal breath sounds bilaterally, clear to auscultation and percussion. No rales, rhonchi or wheezes noted. No increased work of breathing, no retractions or nasal flaring. Back: No spinal tenderness. No costovertebral tenderness. Full range of motion. Neuro: Awake and alert, GCS 15, oriented to person, place, time, and situation. Cranial nerves II-XII grossly intact. Motor strength 5/5 in all extremities. Sensory grossly intact. Cerebellar exam normal. Normal gait. Psych: Awake, alert, with orientation to person, place and time. Behavior, mood, and affect are within normal limits. 20:39 Abdomen/GI: Inspection: abdomen appears normal, Bowel sounds: normal, Palpation: moderate abdominal tenderness. Vital Signs: 20:26 BP 230 / 104; Pulse 70; Resp 19; Temp 98.2; Pulse Ox 100% on R/A; sm5 22:48 BP 161 / 120; Pulse 75; Resp 18; Pulse Ox 100% on R/A; sm5 MDM: 20:36 Patient medically screened. ms3 20:39 Differential diagnosis: Nonspecific abd pain, gastritis, viral gastroenteritis, ms3 Gastroparesis. 22:45 Data reviewed: vital signs, nurses notes, old medical records, lab test result(s). ms3 Counseling: I had a detailed discussion with the patient and/or guardian regarding: the historical points, exam findings, and any diagnostic results supporting the discharge/admit diagnosis, lab results, the need for outpatient follow up, to return to the emergency department if symptoms worsen or persist or if there are any questions or concerns that arise at home. ED course: PatientDiscussed labs and physical exam findings with patient. Patient follow-up with her customer services manager on Wednesday. Patient understands and agrees with plan. All questions were answered. Return precautions discussed include worsening symptoms, or any other concerns. Improved, no apparent distress, nontoxic, ambulatory emergency department, speaking full sentences.. 09/12 20:33 Order name: CBC with Diff; Complete Time: 22:20 ms3 09/12 20:33 Order name: CMP; Complete Time: 22:25 ms3 Administered Medications: 20:40 CANCELLED (Physician Discretion): Lactated Ringers Solution 1000 ml IV at 1 bolus See bb Administration Instructions; 1 L bolus 22:08 Drug: Reglan (metoCLOPramide) 10 mg Route: IVP; Site: left upper arm; sm5 22:58 Follow up: Response: Nausea is decreased sm5 22:08 Drug: Zofran (Ondansetron) 4 mg Route: IVP; Site: left upper arm; sm5 22:58 Follow up: Response: Nausea is decreased sm5 22:08 Drug: Ativan (LORazepam) 1 mg Route: IVP; Site: left upper arm; sm5 22:58 Follow up: Response: No adverse reaction sm5 22:08 Drug: Benadryl (diphenhydrAMINE) 12.5 mg Route: IVP; Site: left upper arm; sm5 22:58 Follow up: Response: No adverse reaction sm5 Disposition Summary: 09/12/21 22:45 Discharge Ordered Location: Home ms3 Condition: Stable ms3 Diagnosis - Gastroparesis ms3 - Abdominal pain, Generalized ms3 - Nausea with vomiting, unspecified ms3 Followup: ms3 - With: Private Physician - When: 2 - 3 days - Reason: Discharge Instructions: - Discharge Summary Sheet ms3 - Gastroparesis ms3 Forms: - Medication Reconciliation Form ms3 - Thank You Letter ms3 - Antibiotic Education ms3 - Prescription Opioid Use ms3 Prescriptions: - Zofran 4 mg Oral Tablet - take 1 tablet by ORAL route every 12 hours As needed; 20 tablet; Refills: 0, ms3 Product Selection Permitted Signatures: Dispatcher [employer] EDJosé Miguel Sandoval, DO ms3 Kathleen Corcoran, RN RN sm5 Hawa Bustillos RN bb Corrections: (The following items were deleted from the chart) 20:40 20:33 Lactated Ringers Solution 1000 ml IV at 1 bolus See Administration Instructions; bb 1 L bolus ordered. ms3
--- NOTE | 2021-09-12 22:46 | ER ---
Nurse's Notes [facility] Name: Cathi Zaldivar Age: 40 yrs Sex: Female : 1980 Arrival Date: 09/12/2021 Time: 20:26 Bed 4 Private MD: Diagnosis: Gastroparesis;Abdominal pain, Generalized;Nausea with vomiting, unspecified Presentation: 09/12 20:26 Chief complaint: EMS states: she has been having abd pain since last Wednesday, seen 5 here on Wednesday. ems gave 2mg of zofran en route. pt had dialysis today. Coronavirus screen: Vaccine status: Patient reports being unvaccinated. Ebola Screen: No symptoms or risks identified at this time. Initial Sepsis Screen: Does the patient meet any 2 criteria? No. Patient's initial sepsis screen is negative. Does the patient have a suspected source of infection? No. Patient's initial sepsis screen is negative. Risk Assessment: Do you want to hurt yourself or someone else? Patient reports no desire to harm self or others. Onset of symptoms was September 03, 2021. 20:26 Method Of Arrival: EMS: [facility] 20:26 Acuity: JESSICA 3 5 Triage Assessment: 20:30 General: Appears uncomfortable, Behavior is crying. Pain: Complains of pain in abdomen. [facility] Neuro: No deficits noted. Level of Consciousness is awake, alert, obeys commands, Oriented to person, place, time, situation. Cardiovascular: No deficits noted. Capillary refill < 3 seconds Patient's skin is warm and dry. Respiratory: No deficits noted. Airway is patent Trachea midline Respiratory effort is even, unlabored. GI: Reports lower abdominal pain, upper abdominal pain, nausea, vomiting. 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 [facility] Historical: - Allergies: 20:29 ambien; sm5 20:29 Codeine; sm5 20:29 GUAIFENESIN; sm5 20:29 Ibuprofen; sm5 20:29 Lisinopril; sm5 20:29 Morphine; sm5 20:29 Nitrofurantoin Macrocrystal; sm5 20:29 PENICILLINS; sm5 20:29 Prolixin; sm5 20:29 zolpidem tartrate; 5 - PMHx: 20:29 "mental problems"; CHF; chronic kidney disease; cyclic vomiting syndrome; Diabetes - sm5 NIDDM; Dialysis; m-w-f; ENCEPHALOPATHY; Gastroparesis; Hypertension; ibs; liver failure; PERIPHERAL NEUROPATHY; pseudo aneurysm R groin; Seizures; - PSHx: 20:29 section; dialysis catheter R chest wall; eye removed; sm5 - Immunization history:: Client reports having NOT received the Covid vaccine. - Social history:: Smoking status: Patient reports the use of cigarette tobacco products, smokes one-half pack cigarettes per day. Screenin:29 Abuse screen: Denies threats or abuse. Denies injuries from another. Nutritional sm5 screening: No deficits noted. Tuberculosis screening: No symptoms or risk factors identified. Fall Risk None identified. Assessment: 21:35 Reassessment: No changes from previously documented assessment. Patient and/or family 5 updated on plan of care and expected duration. Pain level reassessed. 22:48 Reassessment: No changes from previously documented assessment. 5 Vital Signs: 20:26 BP 230 / 104; Pulse 70; Resp 19; Temp 98.2; Pulse Ox 100% on R/A; sm5 22:48 BP 161 / 120; Pulse 75; Resp 18; Pulse Ox 100% on R/A; 5 ED Course: 20:26 Patient arrived in ED. sm5 20:27 José Miguel Saleh DO is Attending Physician. ms3 20:27 Triage completed. sm5 20:29 Arm band placed on right wrist. sm5 20:30 Patient has correct armband on for positive identification. Bed in low position. Call 5 light in reach. Side rails up X2. Pulse ox on. NIBP on. 20:34 Kathleen Corcoran, TABATHA is Primary Nurse. sm5 21:08 Missed attempt(s): 20 gauge in left forearm. upper arm. I received a flash of blood on st1 both attempts however the patients veins are weak and were not able to tolerate the IV's placed. TABATHA Shaikh Charge nurse was notified the patient will need a midline placed. . 21:40 Missed attempt(s): 24 gauge in left wrist. forearm. Bleeding controlled, band aid ds4 applied, catheter tip intact. 22:09 CMP Sent. sm5 22:09 CBC with Diff Sent. 5 22:13 Notified ED physician of a critical lab result(s). platelets of 75 Dr Saleh notified. bb 22:56 No provider procedures requiring assistance completed. IV discontinued, intact, sm5 bleeding controlled, No redness/swelling at site. Pressure dressing applied. Administered Medications: 20:40 CANCELLED (Physician Discretion): Lactated Ringers Solution 1000 ml IV at 1 bolus See bb Administration Instructions; 1 L bolus 22:08 Drug: Reglan (metoCLOPramide) 10 mg Route: IVP; Site: left upper arm; sm5 22:58 Follow up: Response: Nausea is decreased sm5 22:08 Drug: Zofran (Ondansetron) 4 mg Route: IVP; Site: left upper arm; sm5 22:58 Follow up: Response: Nausea is decreased sm5 22:08 Drug: Ativan (LORazepam) 1 mg Route: IVP; Site: left upper arm; sm5 22:58 Follow up: Response: No adverse reaction 5 22:08 Drug: Benadryl (diphenhydrAMINE) 12.5 mg Route: IVP; Site: left upper arm; sm5 22:58 Follow up: Response: No adverse reaction 5 Outcome: 22:45 Discharge ordered by . ms3 22:57 Discharged to home ambulatory. 5 22:57 Condition: stable 22:57 Discharge instructions given to patient, Instructed on discharge instructions, follow up and referral plans. medication usage, Demonstrated understanding of instructions, follow-up care, medications, Prescriptions given X 1. 22:59 Patient left the ED. 5 Signatures: Hawa Bustillos RN RN bb Mohit Boland Marcus, DO DO ms3 Kathleen Corcoran RN RN sm5 Nicole Ordaz RN RN st1
[2021-09-13 00:54] VITALS: BP 161/120; TEMP 98.2; O2SAT 100
== END 2021-09-12 22:59 | disposition home or self-care (01) ==
LOC: ER 20:22
DX: R10.84 Generalized abdominal pain (principal); R11.2 Nausea with vomiting, unspecified; E11.8 Type 2 diabetes mellitus with unspecified complications; R11.15 Cyclical vomiting syndrome unrelated to migraine; I10 Essential (primary) hypertension; K72.90 Hepatic failure, unspecified without coma; Z88.6 Allergy status to analgesic agent; Z88.1 Allergy status to other antibiotic agents; Z88.5 Allergy status to narcotic agent; Z88.0 Allergy status to penicillin; Z88.8 Allergy status to other drugs, medicaments and biological substances; F17.210 Nicotine dependence, cigarettes, uncomplicated
CPT/HCPCS: 85025; 36415; 80053; 96375; 96374; 99284; J2765; J1200; J2405

== ENCOUNTER 2021-10-06 07:47 | Emergency (ER) | payer OTHER ==
[2021-10-06] MEDS ORDERED: ONDANSETRON 4 MG (ODT) TAB ONE (08:14)
[2021-10-06 08:57] LABS: Absolute Lymphocytes (CBC) 1.2 K/uL (0.7-4.9); Hematocrit 27.8 % (36.0-45.0); MPV 10.7 fL (7.6-11.3)
[2021-10-06 09:19] LABS: Albumin 3.5 g/dL (3.4-5.0); Bilirubin Total 0.6 mg/dL (0.2-1.0); Protein, Total 6.6 g/dL (6.4-8.2)
[2021-10-06 09:20] LABS: Potassium 4.5 mmol/L (3.5-5.1)
--- NOTE | 2021-10-06 10:44 | EDPHYS ---
Physician Documentation [facility] Name: Cathi Zaldivar Age: 40 yrs Sex: Female : 1980 Arrival Date: 10/06/2021 Time: 07:50 Bed DIS4 Private MD: ED Physician José Miguel Saleh HPI: 10/06 08:12 This 40 yrs old Female presents to ER via EMS with complaints of Abdominal pm1 Pain. 08:12 The patient presents with abdominal pain in the epigastric area. Onset: The pm1 symptoms/episode began/occurred 2 day(s) ago. The symptoms do not radiate. Associated signs and symptoms: Pertinent positives: nausea and vomiting, Pertinent negatives: chest pain, diarrhea, fever, shortness of breath. The symptoms are described as achy, burning. Modifying factors: The symptoms are alleviated by nothing, the symptoms are aggravated by food. Severity of pain: in the emergency department the pain is actually worse. The patient has experienced similar episodes in the past, multiple times, and the symptoms today are exactly the same, to previous gastroparesis. The patient has not recently seen a physician. 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 - Social history:: Smoking status: . ROS: 08:12 Constitutional: Negative for fever, chills, and weight loss, Cardiovascular: Negative pm1 for chest pain, palpitations, and edema, Respiratory: Negative for shortness of breath, cough, wheezing, and pleuritic chest pain. 08:12 MS/Extremity: Negative for injury and deformity, Skin: Negative for injury, rash, and discoloration. 08:12 Neuro: Negative for headache, weakness, numbness, tingling, and seizure. 08:12 Abdomen/GI: Positive for abdominal pain, nausea and vomiting, Negative for diarrhea, constipation. 08:12 All other systems are negative. Exam: 08:12 Constitutional: This is a well developed, well nourished patient who is awake, alert, pm1 and in no acute distress. Head/Face: Normocephalic, atraumatic. 08:12 Back: No spinal tenderness. No costovertebral tenderness. Full range of motion. 08:12 Skin: Warm, dry with normal turgor. Normal color with no rashes, no lesions, and no evidence of cellulitis. MS/ Extremity: Pulses equal, no cyanosis. Neurovascular intact. Full, normal range of motion. 08:12 Cardiovascular: Exam negative for acute changes, Rate: normal, Rhythm: regular, Pulses: no pulse deficits are appreciated. 08:12 Respiratory: Exam negative for acute changes, respiratory distress, shortness of breath, Breath sounds: are clear throughout. 08:12 Abdomen/GI: Inspection: abdomen appears normal, Palpation: soft, in all quadrants, mild abdominal tenderness, in the epigastric area. 08:12 Neuro: Exam negative for acute changes, Orientation: is normal, Mentation: is normal, Motor: is normal, moves all fours. Vital Signs: 07:50 BP 195 / 88; Pulse 65; Resp 18; Temp 98.2; Pulse Ox 98% on R/A; Weight 72.57 kg; ph 08:02 ph 11:11 BP 162 / 106; Pulse 67; Resp 17; Pulse Ox 98% ; ll1 08:02 pt states that she has not taken home BP meds today ph MDM: 08:00 Patient medically screened. pm1 10:40 Data reviewed: vital signs. Data interpreted: Pulse oximetry: on room air is 98 %. pm1 Interpretation: normal. Counseling: I had a detailed discussion with the patient and/or guardian regarding: the historical points, exam findings, and any diagnostic results supporting the discharge/admit diagnosis, lab results, radiology results, the need for outpatient follow up, to return to the emergency department if symptoms worsen or persist or if there are any questions or concerns that arise at home. 10:40 ED course: Patient's CBC at her baseline. Same level on 09/12/2021 visit. Patient pm1 reports that Ativan and Benadryl worked well for her pain and gastroparesis. Will give the patient the same therapy and will discharge for follow up with her PCP/GI and instructed her to contact her dialysis center for treatment today or tomorrow. 10/06 08:08 Order name: CBC with Diff; Complete Time: 15:31 pm1 10/06 08:08 Order name: CMP; Complete Time: 09:29 pm1 10/06 09:03 Order name: CBC Smear Scan; Complete Time: 15:31 EDMS Administered Medications: 08:25 Drug: Ondansetron 4 mg Route: PO; ph 10:55 Follow up: Response: No adverse reaction; Nausea is decreased; RASS: Alert and Calm (0) ll1 10:49 Not Given (Patient Refused): HYDROcodone-acetaminophen 5 mg-325 mg 1 tabs PO once; RASS ll1 on ADMIN: Combtv4, Very Agttd3, Agttd2, Rstlss1, AlertClm0, Drwsy-1, Lt Sdtn-2, Mod Sdtn-3, Dp Sdtn-4, UnArsble-5 10:55 Drug: Benadryl (diphenhydrAMINE) 25 mg Route: IM; Site: right gluteus; ll1 12:11 Follow up: Response: No adverse reaction ll1 10:55 Drug: Ativan (LORazepam) 1 mg Route: PO; ll1 12:11 Follow up: Response: No adverse reaction ll1 Disposition: 21:30 Co-signature as Attending Physician, José Miguel BRITTON was immediately available on-site ms3 in the Emergency Department for consultation in the care of the patient.. Disposition Summary: 10/06/21 10:43 Discharge Ordered Location: Home pm1 Problem: new pm1 Symptoms: have improved pm1 Condition: Stable pm1 Diagnosis - Gastroparesis pm1 - Abdominal pain, unspecified pm1 Followup: pm1 - With: Emergency Department - When: As needed - Reason: Worsening of condition Followup: pm1 - With: Private Physician - When: 2 - 3 days - Reason: Recheck today's complaints, Continuance of care, Re-evaluation by your physician Discharge Instructions: - Discharge Summary Sheet pm1 - Abdominal Pain, Adult pm1 - Gastroparesis pm1 Forms: - Medication Reconciliation Form pm1 - Thank You Letter pm1 - Antibiotic Education pm1 - Prescription Opioid Use pm1 - Work release form ll1 Prescriptions: - ondansetron 4 mg Oral tablet,disintegrating - place 1 tablet by TRANSLINGUAL route every 8 hours As needed; 12 tablet; pm1 Refills: 0, Product Selection Permitted - dicyclomine 20 mg Oral Tablet - take 1 tablet by ORAL route every 6 hours As needed; 20 tablet; Refills: 0, pm1 Product Selection Permitted Signatures: Dispatcher [employer] Darleen Lockett RN RN Anand Cade, CHAPARRITA MEDICAL LAB TECHNOLOGIST pm1 Georgette Longoria RN RN ll1 José Miguel Saleh DO DO ms3
--- NOTE | 2021-10-06 10:44 | ER ---
Nurse's Notes [facility] Name: Cathi Zaldivar Age: 40 yrs Sex: Female : 1980 Arrival Date: 10/06/2021 Time: 07:50 Bed DIS4 Private MD: Diagnosis: Gastroparesis;Abdominal pain, unspecified Presentation: 10/06 07:50 Chief complaint: EMS states: N/V and abdominal pain that started approx 2 days ago, hx ph of gastroparesis. BGL 66, pt refused oral glucose. VS for EMS 196/98, HR 66, 96%. Coronavirus screen: Vaccine status: Patient reports being unvaccinated. Ebola Screen: No symptoms or risks identified at this time. Initial Sepsis Screen: Does the patient meet any 2 criteria? No. Patient's initial sepsis screen is negative. Does the patient have a suspected source of infection? No. Patient's initial sepsis screen is negative. Risk Assessment: Do you want to hurt yourself or someone else? Patient reports no desire to harm self or others. Onset of symptoms was October 06, 2021. 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 - Social history:: Smoking status: . Screenin:18 Abuse screen: Denies threats or abuse. Nutritional screening: No deficits noted. ll1 Tuberculosis screening: No symptoms or risk factors identified. Fall Risk Ambulatory Aid- Crutches/Cane/Walker (15 pts). Gait- Weak (10 pts.). Total Rios Fall Scale indicates Low Risk Score (25-44 pts). Fall prevention measures have been instituted. Side Rails Up X 2 Frequent Obs/Assesments occuring As available Patient and Family Educated on Fall Prevention Program and strategies. Assessment: 08:18 General: Appears uncomfortable, ill, Behavior is cooperative, appropriate for age. ll1 Pain: Complains of pain in abdomen Quality of pain is described as aching, crampy. GI: Bowel sounds present X 4 quads. Abd is soft and non tender X 4 quads. Reports lower abdominal pain, upper abdominal pain, cramping, nausea. 08:25 Reassessment: Lab present to attempt blood draw. ph 09:25 Reassessment: No changes from previously documented assessment. Patient and/or family ll1 updated on plan of care and expected duration. Pain level reassessed. Patient is alert, oriented x 3, equal unlabored respirations, skin warm/dry/pink. 10:25 Reassessment: No changes from previously documented assessment. Patient and/or family ll1 updated on plan of care and expected duration. Pain level reassessed. Patient is alert, oriented x 3, equal unlabored respirations, skin warm/dry/pink. 11:24 Reassessment: No changes from previously documented assessment. Patient and/or family ll1 updated on plan of care and expected duration. Pain level reassessed. Patient is alert, oriented x 3, equal unlabored respirations, skin warm/dry/pink. Patient states feeling better. Vital Signs: 07:50 BP 195 / 88; Pulse 65; Resp 18; Temp 98.2; Pulse Ox 98% on R/A; Weight 72.57 kg; ph 08:02 ph 11:11 BP 162 / 106; Pulse 67; Resp 17; Pulse Ox 98% ; ll1 08:02 pt states that she has not taken home BP meds today ph ED Course: 07:50 Patient arrived in ED. ph 07:59 Anand Gallo, CHAPARRITA is PHCP. pm1 08:00 José Miguel Saleh DO is Attending Physician. pm1 08:02 Triage completed. ph 08:17 Arm band placed on Patient placed in a hallway bed, in a wheelchair, in view of staff ll1 members. 08:18 Patient has correct armband on for positive identification. Bed in low position. ll1 Cardiac monitoring not applicable on this patient. 08:37 Georgette Longoria, TABATHA is Primary Nurse. ll1 11:24 No provider procedures requiring assistance completed. Patient did not have IV access ll1 during this emergency room visit. Administered Medications: 08:25 Drug: Ondansetron 4 mg Route: PO; 10:55 Follow up: Response: No adverse reaction; Nausea is decreased; RASS: Alert and Calm (0) ll1 10:49 Not Given (Patient Refused): HYDROcodone-acetaminophen 5 mg-325 mg 1 tabs PO once; RASS 1 on ADMIN: Combtv4, Very Agttd3, Agttd2, Rstlss1, AlertClm0, Drwsy-1, Lt Sdtn-2, Mod Sdtn-3, Dp Sdtn-4, UnArsble-5 10:55 Drug: Benadryl (diphenhydrAMINE) 25 mg Route: IM; Site: right gluteus; 1 12:11 Follow up: Response: No adverse reaction 1 10:55 Drug: Ativan (LORazepam) 1 mg Route: PO; 1 12:11 Follow up: Response: No adverse reaction [facility] Outcome: 10:43 Discharge ordered by MD. pm1 11:24 Patient left the ED. 1 11:24 Discharged to home ambulatory. 1 11:24 Condition: stable 11:24 Discharge instructions given to patient, Instructed on discharge instructions, follow up and referral plans. medication usage, Demonstrated understanding of instructions, follow-up care, medications, Prescriptions given X 2. Signatures: Darleen Tucker, TABATHA RN Anand Gallo NP VEHICLE MONITOR TECHNICIAN pm1 Georgette Longoria RN RN [facility]
[2021-10-06 10:52] LABS: Blood Morphology Comment NOT SEEN (NOT SEEN); Platelet Estimate DECR; White Blood Cell Scan OK (OK)
[2021-10-06] MEDS ORDERED: DIPHENHYDRAMINE 50 MG/ML VIAL ONE (10:54)
[2021-10-06] MEDS ORDERED: LORAZEPAM 1 MG TABLET ONE (10:55)
[2021-10-06 11:33] VITALS: BP 162/106; O2SAT 98
[2021-10-06 11:35] VITALS: TEMP 98.2
== END 2021-10-06 11:24 | disposition home or self-care (01) ==
LOC: ER 07:47
DX: K31.84 Gastroparesis (principal); Z88.0 Allergy status to penicillin; Z88.5 Allergy status to narcotic agent; Z88.6 Allergy status to analgesic agent; Z88.8 Allergy status to other drugs, medicaments and biological substances
CPT/HCPCS: 85025; 36415; 80053; 96372; 99283; J1200

== ENCOUNTER 2021-10-08 05:08 | Observation (INO) | payer MEDICARE, OTHER ==
--- OUTSIDE RECORDS SUMMARY | 2021-10-08 05:28 | XMS REPORT | Continuity of Care Document ---
:1980 Author Organization [facility] t Address [address] [place] [address] Care Team Providers Name Role Phone Vivien Morin DO Primary Care Physician Peg Attending Clinician Unavailable Seth MAYS, Kasey Attending Clinician Anthony Attending Clinician Unavailable Pat [...] Clinician Unavailable Ba Attending Clinician Unavailable Tam MYAS Attending Clinician Unavailable Ramana SAPP Attending Clinician [...] Clinician Unavailable HAWA BHAKTA Attending Clinician Unavailable DesdomenicT Admitting Clinician Unavailable ANSHU Admitting Clinician Unavailable Ba Admitting Clinician Unavailable Admitting Clinician Unavailable SHERRILL PHILIPPE Admitting Clinician Unavailable Chivo Admitting Clinician Unavailable HAWA BHAKTA Admitting Clinician Unavailable Payers Payer Name Policy Type Policy Number Effective Date Expiration Date [facility] [id number] 2021 (MEDICARE 00:00:00 REPLACEMENT HMO) Advance Directives Directive Decision Effective Termination Comments Source Date Date Healthcare Agents on N/A [facility] FileNameRelation[facility] [place] Agent Medical RelationshipCommunicationHonorhealth [facility] Branch FoundSibling3 - First Alternate Agent (Medical Power of Collections Director) Problems Condition Condition Condition Status Onset Resolution Last Treating Co mments Source Name Details Category Date Date Treatment Clinician Date AVF AVF Disease Active Univers (arteriove (arteriove 9 it y of nous nous 00:00: [place] fistula) fistula) 00 Medica l Branch End stage End stage Disease Active [facility] renal renal 7-16 Health failure on failure on 00:00: dialysis dialysis 00 Diabetes Diabetes Disease Active [facility] mellitus mellitus 7-16 Health with with 00:00: gastropare gastropare 00 sis sis Essential Essential Disease Active [facility] hypertensi hypertensi 7-16 He alth on on 00:00: 00 Irritable Irritable Disease Active [facility] bowel bowel 01-03 Health syndrome syndrome 00:00: (IBS) (IBS) 00 GASTROPARE Diagnosis Active 2021-02-10 Memoria HELENA/IBS-D 7- 21:41:00 l /ANEMIA 00:00: Vin GASTROPARE 00 HELENA/IBS-D /ANEMIA Active 01/03/2021 [facility] NEW Diagnosis Active 2020-12-24 Mem oria PATIENT GI 4-26 10:39:00 l CONSULT NEW 00:00: Vin REFRACTORY PATIENT GI 00 GASTRO CONSULT REFRACTORY GASTRO Active 10/14/2020 [facility] Malfunctio Malfunctio Disease Active Overview : Univers n of n of 6-03 Formattin ity of arterioven arterioven 00:00: g of this [place] ous ous 00 note Medical dialysis dialysis might be Bran ch fistula, fistula, different initial initial from the encounter encounter original. Added automatic ally from request for surgery [id number] Candidiasi Candidiasi Disease Active U nivers s of vulva s of vulva 2-18 it y of [place] Screening Screening Disease Active Uni vers for breast for breast 2-18 it y of cancer cancer 00:00: [place] 00 Medical Branch NEW Diagnosis Active 2018-07-26 Mem oria EVALUATION 07-12 09:39:00 l NEW 00:00: [place] EVALUATION 00 Active 07/12/2018 [facility] Pyogenic Pyogenic Disease Active 2017-06 Overview: Un lori granuloma granuloma 0-17 Formattin i ty of of of 00:00: g of this [place] conjunctiv conjunctiv 00 note Me dical a, right a, right might be Bran ch different from the original. Added automatic ally from request for surgery [id number] Right eye Right eye Disease Active Overview: Univers affected affected 02-22 Formattin ity of by by 00:00: g of this [place] proliferat proliferat 00 note Me dical montse montse might be Branch diabetic diabetic different retinopath retinopath from the y with y with original. traction traction Added retinal retinal automatic detachment detachment ally from not not request involving involving for macula, macula, surgery associated associated [id number] with type with type 1 diabetes 1 diabetes mellitus mellitus Pain Pain Disease Active Univers management management 01-18 it y of 00:00: [place] 00 Medical Branch Blind Blind Disease Active Overview: Univer s painful painful 12-16 Formattin ity o f eye eye 00:00: g of this [place] 00 note Medical might be Branch different from the original. Eviscerat ion OS on 8 - Dr. 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 Added automatic ally from request for surgery [id number] ESRD (end ESRD (end Disease Active Overview: Univers stage stage 6-12 Formattin ity of renal renal 00:00: g of this [place] disease) disease) 00 note Medica l on on might be Branch dialysis dialysis different from the original. Added automatic ally from request for surgery [id number] Diabetes Diabetes Disease Active Metho di mellitus [...] Added automatic ally from request for surgery [id number] Neovascula Neovascula Disease Active U nivers r r 1-18 ity of glaucoma, glaucoma, [place] left eye left eye 00 Medica l Branch Increased Increased Disease Active Uni vers intraocula intraocula 1-18 it y of r pressure r pressure [place] Fall Fall Disease Active 2016-06 Univers 0-13 ity of 00:00: [place] 00 Medical Branch Pneumonia Pneumonia Disease Active 2016-06 Uni vers 0-11 ity of 00:00: [place] Medical Branch Diabetes Diabetes Disease Active 2016-06 Overview: Un lori mellitus mellitus 0-05 Formattin ity of 00:00: g of this [place] 00 note Medical might be Branch different from the original. Added automatic ally from request for surgery [id number] Pseudotumo Pseudotumo Disease Active U nivers r cerebri r cerebri 9-25 ity of 00:00: [address] Branch Liver Liver Disease Active [facility] [...] [facility] Hypertensi Hypertensi Disease Active [facility] 7[facility]16 [facility] - emergency emergency [facility] Peripheral Peripheral Disease Active U viviana neuropathy neuropathy 7-16 it y of 00:00: [place] [address] Medical Branch ACUTE RESP Diagnosis Active 2016-09-09 Memoria FAILURE 2- 09:11:00 l ACUTE 00:00: [place] RESP 00 FAILURE Active 07/23/2016 [facility] CONGESTION Diagnosis Active 2016-07-24 Memoria AMD 2- 01:49:00 l DIARRHEA 00:00: [place] CONGESTION 00 AMD DIARRHEA Active 07/23/2016 [facility] Congestive Congestive Disease Active 2015-06 U T heart heart - Health failure failure 00:00: (CHF) (CHF) 00 SOB/SWELLI Diagnosis Active 2015-062016-06-10 [facility] NG 2- 15:48:00 l 00:00: Vin SOB/SWELLI [address] [facility] CHF/RENAL Diagnosis Active 2015-062016-06-24 Memoria DISEASE 2- 15:35:00 l 00:00: [place] CHF/RENAL 00 DISEASE Active 06/10/2016 [facility] Obesity Obesity Disease Active 2015-06 Univers (BMI (BMI 0-12 ity of 30-39.9) 30-39.9) 00:00: [place] [address] Medical Branch Hyperosmol Hyperosmol Disease Active 2015-06 U viviana ar ar 0-12 ity of non-ketoti non-ketoti [place] c state in 00 Me dical patient patient Branch with 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 Hyperglyce Hyperglyce Disease Active 2015-06 U [place] maryam maryam 0-11 ity of 00:00: [place] [address] Medical Branch Diabetic Diabetic Disease Active Unive rs ulcer of ulcer of 5-07 ity of both feet both feet 00:00: Amisha s associated associated 00 Me dical with type with type Bran ch 2 diabetes 2 diabetes mellitus mellitus SANJUANA (acute SANJUANA (acute Disease Active U viviana kidney kidney 5-07 ity of injury) injury) 00:00: [place] [address] Medical Branch Depression Depression Disease Active U viviana 5-07 ity of 00:00: [place] 00 Medical Branch Bipolar 1 Bipolar 1 Disease Active Uni vers disorder disorder 5-07 ity of 00:00: [place] 00 Medical Branch Suicidal Suicidal Disease Active Unive [...] 00:00: [place] cancer in cancer in 00 [facility] female female Branch Family Family Disease Active [...] Memoria PAIN, 1-06 05:44:00 l SEIZURES 00:00: [place] ABDOMINAL 00 PAIN, SEIZURES Active 06/26/2013 [facility] ABD PAIN Diagnosis Active 2012-062013-04-19 M emoria 0- 21:51:00 l ABD PAIN 19:00: Jake n 00 Active 04/14/2013 [place] GASTROPERI Diagnosis Active 2012-09-13 Memoria SIS 2-12 15:17:00 l 00:00: [place] GASTROPERI 00 SIS Active 08/02/2012 [facility] ABDOMINAL Diagnosis Active 2012-03-14 Memoria PAIN 03-14 16:56:00 l 14:00: [place] ABDOMINAL 00 PAIN Active 03/14/2012 [facility] NAUSEA, Diagnosis Active 2012-03-14 Me moria VOMITING 03-14 13:25:00 l NAUSEA, 08:00: [place] VOMITING 00 Active 03/14/2012 [facility] N/V Diagnosis Active 2011-12-08 Mem oria INABILITY 11-27 11:14:00 l TO N/V 00:00: [place] TOLERATE INABILITY 00 PO TO TOLERATE PO Active 2 [facility] VOMITTING Diagnosis Active 2011-11-28 Memoria 11-27 16:28:00 l 00:00: [place] VOMITTING 00 Active 11/28/2011 [facility] VOMITTING, Diagnosis Active 2011-09-18 Memoria HIGH BLOOD 09-17 09:45:00 l SUGAR 00:00: [place] VOMITTING, 00 HIGH BLOOD SUGAR Active 09/18/2011 [facility] Methicilli Problem Active 2021-01-31 M emoria n 08-31 22:29:25 l resistant 00:00: [place] Staphyloco Methicilli 00 ccus n aureus resistant (organism) Staphyloco ccus aureus (organism) Active 09/01/2011 Problem 01/31/2021 09/01/11 - Elbow woundProbl em added by Discern Expert. [facility] MRSA Problem Active 2012-03-16 Memor ia - 09:11:30 l MRSA 00:00: Vin 00 Active 09/01/2011 Problem 03/16/2012 - Elbow [id number] emily added by Discern Expert. [facility] VOMITING, Diagnosis Active 2011-09-01 Memoria BLOOD 08-30 03:19:00 l SUGAR 00:00: [place] READINGS VOMITING, 00 HIGH BLOOD SUGAR READINGS HIGH Active 08/31/2011 [facility] ELBOW Diagnosis Active 2011-09-10 Mem oria ABSCESS/HY 08-30 16:26:00 l PERGLYCEMI ELBOW 00:00: Nidia nn A ABSCESS/HY 00 PERGLYCEMI A Active 08/31/2011 [facility] Hypokalemi Problem Active 2012-03-16 M emoria a 3-04 09:11:30 l 00:00: [place] Hypokalemi 00 a Active 08/23/2011 Problem 03/16/2012 [facility] DKA Diagnosis Active 2011-08-24 Mem oria 11:27:00 l DKA 00:00: [place] 00 Active 08/19/2011 [facility] VOMITING Diagnosis Active 2011-08-19 M emoria [...] [facility] Hypoglycem Problem Inactiv 2012-03-16 Memoria ia e 09:11:30 l Vin Hypoglycem ia Inactive Problem 03/16/2012 [facility] Hypoglycem Problem Inactiv 2013-04-22 Memoria ia e 04:46:33 l (disorder) Jake n Hypoglycem ia (disorder) Inactive Problem 04/22/2013 [facility] Gastropare Problem Resolve 2021-01-31 Memoria sis d 22:29:25 l (disorder) Jake gonzalez Gastropare sis (disorder) Resolved Problem 01/31/2021 [facility] Hypertensi Problem Resolve 2021-01-31 Memoria ve d 22:29:25 l disorder, Vin systemic Hypertensi arterial ve (disorder) disorder, systemic arterial (disorder) Resolved Problem 01/31/2021 [facility] Psychiatri Problem Resolve 2021-01-31 Memoria c d 22:29:25 l behavioral Jake n disability Psychiatri (finding) c behavioral disability (finding) Resolved Problem 01/31/2021 [facility] Seizure Problem Resolve 2021-01-31 Mem oria (finding) d 22:29:25 l Seizure Vin (finding) Resolved Problem 01/31/2021 [facility] Hypertensi Problem Active 2012-03-16 M emoria on 09:11:30 l [place] Hypertensi on Active Problem 2 [facility] Hypomagnes Problem Active 2013-04-22 M emoria emia 04:46:33 l [place] Hypomagnes emia Active Problem 04/22/2013 [facility] Nausea and Problem Active 2012-03-16 M emoria vomiting 09:11:30 l Nausea Vin and vomiting Active Problem 03/16/2012 [facility] ENCNTR FOR Diagnosis Active 2020-12-24 Memoria GENERAL 10:39:00 l ADULT ENCNTR [place] MEDICAL FOR EXAM W/ GENERAL ADULT MEDICAL EXAM W/ Active [facility] DMI Diagnosis Active 2011-08-24 Mem oria KETOACD 11:27:00 l UNCONTROLD DMI Jake n KETOACD UNCONTROLD Active [facility] OTHER Diagnosis Active 2011-09-10 Mem oria GENERAL 16:26:00 l SYMPTOMS OTHER [place] GENERAL SYMPTOMS Active [facility] Nausea and Problem Resolve 2021-01-31 2021-01-31 Memoria vomiting d 6-10 22:29:25 22:29:25 l (disorder) Nausea 00:00: Herm naeem and 00 vomiting (disorder) Resolved 11/29/2011 Problem 01/31/2021 [facility] Hypokalemi Problem Resolve 2021-01-31 2021-01-31 Memoria a d 3-04 22:29:25 22:29:25 l (disorder) 00:00: Jake n Hypokalemi 00 a (disorder) Resolved 08/23/2011 Problem 01/31/2021 [facility] Disorder Problem Resolve 2021-01-31 2021-01-31 Memoria of d 3-04 22:29:25 22:29:25 l magnesium Disorder 00:00: Her braden metabolism of 00 (disorder) magnesium metabolism (disorder) Resolved 08/23/2011 Problem 01/31/2021 [facility] Hyperglyce Problem Resolve 2021-01-31 2021-01-31 Memoria maryam d 3 22:29:25 22:29:25 l (disorder) 00:00: Jake n Hyperglyce 00 maryam (disorder) Resolved 08/20/2011 Problem 01/31/2021 [facility] Ketoacidos Problem Resolve 2021-01-31 2021-01-31 Memoria is in d 22:29:25 22:29:25 l diabetes 00:00: Vin mellitus Ketoacidos 00 (disorder) is in diabetes mellitus (disorder) Resolved 08/19/2011 Problem 01/31/2021 [facility] DKA Problem Resolve 2013-04-22 2013-04-22 Memoria (diabetic d 04:46:33 04:46:33 l ketoacidos DKA 00:00: Jake gonzalez es) (diabetic 00 ketoacidos es) Resolved 08/19/2011 Problem 04/22/2013 [facility] History of Past Illness Condition Condition [...] Hyperglyce 00 maryam Inactive 08/20/2011 Problem 03/16/2012 [facility] Allergies, Adverse Reactions, Alerts Allergy [...] ITCHING Univers INGREDI 03-19 ity of 00:00: 00 Medical Branch Morphine Propensi Active Shortness Of itchy Methodi ty to Breath 4-13 st adverse 00:00: Hospita reaction 00 l s to drug Cephalex Allergy Active Hives UT in to [...] UT Tape Allergy 2-14 Health 00:00: 00 ADHESIVE DRUG Active Med Rash 2016-06 [...] ers SIN INGREDI 01-03 ity of 00:00: [place] 00 Medical Branch Nitrofur Propensi Active Other [...] 01-03 [facility] Ketorola Allergy Active Swelling throatthr UT c to 6 oatthroat Health Trometha substanc 00:00: mine e 00 KETOROLA DRUG Active High Swelling Univer s C INGREDI 6 ity of TROMETHA 00:00: [facility] 00 Medical Branch Ketorola Propensi Active Swelling [...] penicill Active Memori a ins ins l [place] codeine codeine Active Memoria l Vin morphine morphine Active Memori a l [place] lisinopr lisinopr Active Memori a il il l Vin Adhesive Adhesive Active Memori a Tape Tape l Vin Ambien Ambien Active Memoria l [place] Prolex Prolex Active Memoria DM DM l [place] penicill Drug Active [facility] lisinopr Drug Active [facility] Ambien Drug Active [facility] Prolixin Drug Active [facility] penicill Drug Active [facility] lisinopr Drug Active [facility] Ambien Drug Active [facility] Prolixin Drug Active [facility] Tape Other Active [facility] penicill Drug Active [facility] lisinopr Drug Active [facility] Ambien Drug Active [facility] Prolixin [facility] Active [facility] codeine Drug Active [facility] penicill Drug Active [facility] lisinopr Drug Active [facility] Ambien Drug Active [facility] Prolixin Drug Active [facility] codeine Drug Active [facility] penicill Drug Active [facility] lisinopr Drug Active [facility] Ambien Drug Active [facility] Prolixin Drug Active [facility] penicill Drug Active [facility] lisinopr Drug Active [facility] Ambien Drug Active [facility] Prolixin Drug Active [facility] penicill Drug Active [facility] lisinopr Drug Active [facility] Ambien Drug Active [facility] Prolixin Drug Active [facility] Social History Social Habit Start Date Stop Date Quantity Comments Source History of tobacco Cigarette Smoker [facility] use [facility] Exposure to Yes [facility] SARS-CoV-2 (event) Hospit al Alcohol intake 2021-06-18 2021-06-18 Ex-drinker [facility] 00:00:00 00:00:00 (finding) Hospital Cigarettes smoked 2021-05-14 2021-05-14 [facility] current (pack per 00:00:00 00:00:00 Hospita l day) - Reported Cigarette 2021-05-14 2021-05-14 [facility] pack-years 00:00:00 00:00:00 Hospital Tobacco use and 2021-05-14 2021-05-14 Smokeless tobacco [facility] exposure 00:00:00 00:00:00 non-user Hospital Social History 2020-12-24 2020-12-24 [facility] fatou 15:49:37 15:49:37 Tobacco Comment 2017-11-12 2017-11-12 5 cigarettes per [facility] 00:00:00 00:00:00 day Hospital Sex Assigned At [birth year] [facility] 00:00:00 00:00:00 Hospital Smoking Status Start Date Stop Date Source Smokes tobacco daily 2021-05-14 00:00:00 [facility] Former smoker 2020-06-27 00:00:00 2020-06-27 00:00:00 [facility] Medications Ordered Filled Start Stop Current Ordering Indication Dosage Frequency Signature Comments Components Source Medication Medication Date Date Medication? Clinician (SIG) Name Name glipiZIDE Yes 5mg Take 5 mg Met hodi (GLUCOTROL) -[address] 5 MG tablet 13:02: daily. Hosp jo-ann 39 l calcium Yes 667mg Q.[id number] Take 667 Methodi acetate 1-[id number] (PHOSLO) 13:02: 3D mouth [...] 39 nightly. l calcium 2021-0 Yes 1334mg Q.[id number] Take 1,334 Methodi acetate,domingo 1-18 [id number] mg by s t sphat bind, 13:02: 3D mouth 3 Hos whit (Phoslyra) 39 (three) l 667 mg (169 times a mg day. calcium)/5 mL solution cyproheptad Yes 4mg Q.[id number] Take 4 mg Methodi ine -18 [id number] mouth [address] (PERIACTIN) 13:02: 3D (three) Hos whit 4 mg tablet 39 times a l day as needed for allergies. buPROPion Yes 300mg QD Take 300 Met hodi XL 1-[address] (WELLBUTRIN 13:02: mouth Hospi ta XL) 300 MG 39 daily. l 24 hr tablet ascorbic Yes 500mg Q.[id number] Take 500 Methodi acid, -[id number] vitamin C, 13:02: 3D [...] mg at night vancomycin 2020-06- No 750mg Q.[id number] Infuse 750 Methodi 750 mg in 07-08 [id number] mg into a [address] sodium 00:00: 05:59 3W venous Hospita chloride 00 :00 catheter 3 l 0.9% 250 mL (three) IVPB times a week for 19 days. Administer 3 times weekly in dialysis HYDROcodone 2020-06- [place] [id number] 1{tbl} Q6H Take 1 Methodi -acetaminop 06-24 [...] 30 per tablet days. HYDROcodone 2020-06 No [id number] 2{tbl} Q8H Take 2 Methodi -acetaminop 07-26 12-13 tablets by s t hen (NORCO) 00:00: 05:59 mouth Hosp jo-ann 5-325 mg 00 :00 every 8 l per tablet (eight) hours as needed for severe pain for up to 7 days .acute pain. Max Daily Amount: 6 tablets predniSONE 2020-06 No [id number] Take M ethodi (DELTASONE) 07-18-05 Prednisone s t 50 mg 00:00: 00:00 50mg 13 Hospita tablet 00 :00 hours, 7 l hours, and 1 hour prior to scheduled procedure on 05/19/2021 for contrast allergy prophylaxi s. linaGLIPtin 2020-06 5mg QD Take 5 mg Methodi (TRADJENTA) 1-24 11-[address] 5 mg tablet 15:20: 00:00 daily. Hos whit 30 :00 l buPROPion 2020-06 No 150mg Take 150 Me thodi SR [...] by ity of Vitamin D3, 11:08: mouth. [facility] s 125 mcg Medical (5,000 Branch unit) tablet proMETHazin 2020-06 Yes 25mg Take 25 mg Univers e 25 mg 0-03 by mouth. ity of tablet 11:08: [place] [address] Medical Branch aspirin 81 2020-06 Yes 81mg Take 1 Unive rs mg chewable 0-03 tablet by ity of tablet 11:08: mouth [place] [id number] daily. Medical Branch divalproex 2020-06 Yes 500mg Take 500 Un lori ER 0-01 mg by ity of (DEPAKOTE 23:08: mouth 2 [place] ER) 500 mg 36 (two) Medical 24 hr times Branch tablet daily. gabapentin 2020-06 Yes 100mg Take 100 Un lori 100 mg 0-01 mg by ity of capsule 23:08: mouth 2 [place] [address] (two) Medical times Branch daily. vitamin C 2020-06 Yes 2000mg Take 2,000 Univers with sia 0-01 mg by ity of hips 23:08: mouth 2 [place] (VITAMIN C) 36 (two) Medical 1,000 mg times Branch tablet daily. metoprolol 2020-06 Yes 50mg Take 50 mg U nivers tartrate 50 0-01 by mouth ity of mg tablet 23:08: daily. [address] Branch folic 2020-06 Yes 800mg Take 800 Univers acid/vit B 0-01 mg by ity of complex and 23:08: mouth [place] C 36 daily. Medical (DIALYVITE Branch 800 ORAL) linagliptin 2020-06 Yes Take by Un lori (TRADJENTA) 0-01 mouth. ity of 5 mg tablet 23:08: [address] Branch spironolact 2020-06 Yes 50mg Take 50 mg Univers one 50 mg 0-01 by mouth ity of tablet 23:08: daily. [address] Branch pravastatin 2020-06 Yes 40mg Take [...] by mouth ity of tablet 23:08: daily. [place] [address] Medical Branch calcium 2020-06 Yes 667mg Take 667 Unive rs acetate 667 0-01 mg by ity of mg capsule 23:08: mouth 3 [place] (three) Medical times Branch daily with meals. cetirizine 2020-06 Yes 1{tbl} Take 1 Uni vers HCl/pseudoe 0-01 tablet by ity of phedrine 23:08: mouth [place] (ZYRTEC-D 36 daily. Medical ORAL) Branch furosemide 2020-06 Yes 40mg Take 40 mg U nivers 40 mg 0-01 by mouth 2 ity of tablet 23:08: (two) [place] [address] times Medical daily. Branch divalproex 2020-06 Yes 500mg Take 500 Un lori ER 0-01 mg by ity of (DEPAKOTE 23:08: mouth 2 [place] ER) 500 mg 36 (two) Medical 24 hr times Branch tablet daily. gabapentin 2020-06 Yes 100mg Take 100 Un lori 100 mg 0-01 mg by ity of capsule 23:08: mouth 2 [place] [address] (two) Medical times Branch daily. vitamin C 2020-06 Yes 2000mg Take 2,000 Univers with sia 0-01 mg by ity of hips 23:08: mouth 2 [place] (VITAMIN C) 36 (two) Medical 1,000 mg times Branch tablet daily. metoprolol 2020-06 Yes 50mg Take 50 mg U nivers tartrate 50 0-01 by mouth ity of mg tablet 23:08: daily. [place] [address] Medical Branch folic 2020-06 Yes 800mg Take 800 Univers acid/vit B 0-01 mg by ity of complex and 23:08: mouth [place] C 36 daily. Medical (DIALYVITE Branch 800 ORAL) linagliptin 2020-06 Yes Take by Un lori (TRADJENTA) 0-01 mouth. ity of 5 mg tablet 23:08: [place] 36 Medical Branch spironolact 2020-06 Yes 50mg Take 50 mg Univers one 50 mg 0-01 by mouth ity of tablet 23:08: daily. [place] [address] Medical Branch pravastatin 2020-06 Yes 40mg Take 40 mg Univers 40 mg 0-01 by mouth ity of tablet 23:08: daily. [place] [address] Medical Branch mv-mn/iron/ 2020-06 Yes 1{capsu Take 1 U nivers folic 0-01 le} capsule by ity of acid/herb 23:08: mouth [place] 190 36 daily. Medical (VITAMIN D3 Branch COMPLETE ORAL) SERTraline 2020-06 Yes 50mg Take 50 mg U nivers 50 mg 0-01 by mouth ity of tablet 23:08: daily. [place] [address] Medical Branch calcium 2020-06 Yes 667mg Take [...] janice 01-29 (Same as: l 01:36: Mylicon) [place] 00 epoetin Yes 2,000 unit Mendoza janice giovanny-epbx 01-28 = 1 mL, l 1999 19:37: IV, [place] units/mL 00 Q-M-W-F, preservativ to be e-free [...] tab, PO, l tablet 19:33: BID, 0 [place] 00 Refill(s) buPROPion Yes 75 mg = 1 Mem oria 75 mg oral 8-10 tab, PO, l tablet 19:33: Daily, # [place] 00 14 tab, 0 Refill(s) Norvasc No [...] 22:54: Mag-Ox Vin 00 400) Magnesium oxide 330tq=873b g elemental magnesium Dose=____m g magnesium oxide (___mg elemental magnesium) Coreg No Notes: Memoria 01-23 Give with l 02:00: food. Vin 00 (Same As: Coreg) Buspar No Notes: Memoria 01-22 (Same As: l 22:00: BuSpar) Vin 00 Fentanyl No Notes: Memoria 01-22 (Same as: l 21:06: Sublimaze) Vin 00 Preservat montse free. Norvasc No Notes: Memoria - (Same as: l 16:47: Norvasc) [place] 00 Wellbutrin No Notes: Memor ia 01-22 [...] 00 24 HR No Notes: Memoria Divalproex 04 Hazardous l Sodium 500 14:00: Drug Group H ermann MG Extended 00 2:Non-anti Release neoplastic Tablet Hazardous [Depakote] Drug -- Refer to safe handling procedure PPE Matrix (Same as: Depakote ER) Once daily dosing; indicated for migraines. Divalproe x sodium extended-r elease tab. Do not chew or crush. Doxazosin No Notes: Memori a 8-04 (Same as: l 14:00: Cardura) [place] 00 Furosemide No Notes: Memor ia 40 [...] 01-22 2 tab, l 02:00: Route: PO, [place] 00 Drug form: ERTAB, Bedtime, Start date: [...] Same as: l 200 mL 18:26: Cardene [place] (Titrate.) 00 Concentrat IV 40 mg ion: (0.2 mg /1 ml ) Cyproheptad No 4 mg, 1 Mem oria ine 01-21 tab, l 18:00: Route: PO, Vin Drug form: TAB, TID, Dosing Weight 72, kg, Start date: 01/21/21 13:00:00 CDT, Duration: 30 day, Stop date: 02/20/21 9:00:00 CDT Albuterol No Notes: SEE Me moria 01-21 RT l 17:49: DOCUMENTAT [place] ION (Same as: Proventil) albuterol No 180 [...] 0.9% 01-21 Same as: l 17:31: BD [place] Posiflush Sterile propofol 10 No Notes: If M emoria mg/mL 01-21 Diprivan - l (Titrate.) 17:31: change Nidia nn IV 1,000 mg 00 bottle & tubing every 12 hr Per state nursing law propofol can only be given by a nurse if patient is intubated or being intubated (unless the nurse is a RIGHT OF WAY APPRAISER). Same as: Diprivan midazolam No Route: IV, Me moria (ANES) 01-21 Drug form: l 17:18: SOLN, [place] 00 ONCE, Stop date: 01/21/21 12:18:00 CDT fentaNYL No Route: IV, Mem oria (ANES) 01-21 Drug form: l 17:18: INJ, ONCE, [place] Stop date: 01/21/21 12:18:00 CDT niCARdipine No [...] (Same as: l 13:16: Mylicon, Phazyme, Genasyme) calcium No See Memoria acetate [...] n [XIFAXAN] 00 tab, 2 Refill(s), Pharmacy: [facility], 154.94, cm, 12/24/20 10:43:00 CDT, Height, 71.818, kg, 12/24/20 10:43:00 CDT, Weight {2 (480 ML Yes See Memoria Magnesium 12-24 Instructio l Sulfate 18:12: ns, take Jaek n 0.0277 00 as MEQ/ML / directed, potassium give sulfate clenpiq if 0.0374 not MEQ/ML / covered by sodium insurance, sulfate # 1 ea, 0 0.257 Refill(s), MEQ/ML Oral Pharmacy: Solution) } [facility] [Suprep 808, Bowel Prep 154.94, Kit] cm, 12/24/20 10:43:00 CDT, Height, 71.818, kg, 12/24/20 10:43:00 CDT, Weight Citric Acid 2021-0 Yes 160 mL, Mem oria 75 MG/ML [...] 7-06 Refill(s) l 15:54: Vin 00 Buspar 0 Yes PO, BID, 0 Memor ia 7-06 Refill(s) l 15:53: [place] 00 Dialyvite 0 Yes 0 Memoria 5000 [...] 00 (two) tablet times a day. busPIRone Yes 7.5mg Q.5D Take 7.5 UT (Buspar) 6-19 mg by Health 7.5 MG 00:00: mouth 2 tablet 00 (two) times a day. buPROPion Yes 300mg Take 300 UT XL 6-19 mg by [facility] (Wellbutrin 00:00: mouth 1 XL) 300 MG 00 (one) time 24 hr each day tablet in the morning. busPIRone Yes 7.5mg Take 7.5 Uni vers 7.5 mg 6-19 mg by ity of tablet 00:00: mouth 2 [place] 00 (two) Medical times Branch daily. metoprolol Yes 1{tbl} QD Take 1 UT succinate 5-25 tablet by Healt h XL 00:00: mouth 1 (Toprol-XL) 00 (one) time 50 MG 24 hr each day. tablet ascorbic Yes 500mg Q.[id number] Take 500 UT acid 5-15 [id number] mg by [facility] (Vitamin C) 00:00: 3D mouth 3 500 MG 00 (three) tablet times a day. sucralfate Yes 1{tbl} QD Take 1 UT (Carafate) 5-10 tablet by [facility] th 1 g tablet 00:00: mouth 1 00 (one) time each day. zinc Yes DAILY Univers sulfate 50 5-10 ity of mg zinc 00:00: [place] (220 mg) 00 Medical capsule Branch ondansetron 0 Yes 4mg Take 4 mg U nivers 4 mg 4-13 by mouth ity of disintegrat 00:00[place]. [place] tablet 00 Medical Branch GLIPIZIDE 5 0 Yes [id number] TAKE 1 Univers mg tablet -06 TABLET BY ity o f 00:00: MOUTH [place] 00 TWICE Medical DAILY Branch BEFORE BREAKFAST AND BEFORE SUPPER doxazosin 4 2020-0 2020- No 4mg Take 4 mg Univers mg tablet 06-27 by mouth 2 ity of 10:52: 00:00 (two) [place] 22 :00 times Medical daily. Branch doxazosin 4 0 Yes 4mg Take 1 Univ ers mg tablet 1-07 tablet by ity o f 00:00: mouth at [place] 00 bedtime. Medical Branch doxazosin 4 Yes 4mg Take 1 Univ ers mg tablet 1-07 tablet by ity o f 00:00: mouth at [place] 00 bedtime. Medical Branch glipiZIDE 5 2019-06- No [id number] 5mg Take 1 Univers mg tablet 07-01-06 tablet by ity of 00:00: 00:00 mouth [...] by ity of tablet 00:00: mouth at [place] [address] bedtime. Medical Branch traZODone Yes 150mg Take 150 Uni vers 150 mg 8-13 mg by ity of tablet 00:00: mouth at [place] [address] bedtime. Medical Branch erythromyci 2020- No [id number] .5[in_u Place 0.5 Univers n 5 mg/gram [...] l 59 Center hydrALAZINE 2017-0 Yes 100mg Q.[id number] Take [address] [facility] (APRESOLINE 7-20 [id number] mg by L ukes - ) 100 MG 15:20: 3D mouth 3 Medica l tablet 59 (three) Center times daily. magnesium 2017-0 Yes 400mg QD Take [address] [facility] oxide 7-20 mg by [facility] (MAG-OX) 15:20: mouth Medical 400 mg 59 daily. Center tablet metoclopram 2017-0 Yes 10mg Q.02875461 Take [address] [facility] gadiel HCl 7-20 [id number] by mouth 3 [facility] - (REGLAN) 10 [...] l 59 Center hydrALAZINE 2017-0 Yes 100mg Q.[id number] Take [address] [facility] (APRESOLINE 7-20 [id number] mg by L ukes - ) 100 MG 15:20: 3D mouth 3 Medica l tablet 59 (three) Center times daily. magnesium 2017-0 Yes 400mg QD Take [address] [facility] oxide 7-20 mg by [facility] - (MAG-OX) 15:20: mouth Medical 400 mg 59 daily. Center tablet metoclopram 2017-0 Yes 10mg Q.[id number] Take [address] [facility] gadiel HCl 7-20 [id number] by mouth 3 [facility] - (REGLAN) 10 [...] l 59 Center hydrALAZINE 2017-0 Yes 100mg Q.[id number] Take [address] [facility] [address] (APRESOLINE 7-20 [id number] mg by L ukes - ) 100 MG 15:20: 3D mouth 3 Medica l tablet 59 (three) Center times daily. magnesium 2017- Yes 400mg QD Take [address] [facility] oxide 7-20 mg by [facility] - (MAG-OX) 15:20: mouth Medical 400 mg 59 daily. Center tablet metoclopram 2017-0 Yes 10mg Q.[id number] Take [address] [facility] gadiel HCl 7-20 [id number] by mouth 3 [facility] - (REGLAN) 10 [...] tab, PO, l Tablet 15:07: Daily, # [place] 00 30 tab, 0 Refill(s), Pharmacy: [facility] [id number] Bumex No 0.5 mg, Memoria 2 Route: PO, l 15:00: Drug form: [place] 00 TAB, Daily, Dosing Weight 92.273, kg, Start date: 07/30/16 9:00:00 PRODUCTION ROUSTABOUT, Duration: 30 day, Stop date: 08/28/16 9:00:00 PRODUCTION ROUSTABOUT Lasix 2016- No Notes: Memoria 2-08 (Same [...] Total Volume: 1,000, Start date: 07/26/16 12:26:00 PRODUCTION ROUSTABOUT, Duration: 30 day, Stop date: 08/25/16 12:25:00 PRODUCTION ROUSTABOUT Sodium 2016-0 No 500 mL, Memoria Chloride 2-05 500 ml/hr, l 0.154 13:30: Infuse [place] MEQ/ML 00 Over: 1 Injectable hr, Route: Solution IV, 500, Drug form: INJ, ONCE, Priority: STAT, Dosing Weight 92.273 kg, Start date: 07/26/16 7:30:00 PRODUCTION ROUSTABOUT, Duration: 1 doses or times, Stop date: 07/26/16 7:30:00 PRODUCTION ROUSTABOUT Insulin No 60 Memoria regular 2-04 units) [...] Weight 92.273, kg, Start date: 07/24/16 9:00:00 PRODUCTION ROUSTABOUT, Duration: 30 day, Stop date: 08/22/16 9:00:00 PRODUCTION ROUSTABOUT 24 HR No Notes: Memoria Divalproex 2-03 (Same as: l Sodium 500 15:00: Depakote Her braden MG Extended 00 ER) Release Tablet [Depakote] gabapentin No Notes: Memor ia 300 MG Oral 2-03 (Same as: l Capsule 15:00: Neurontin) Herm naeem Aspirin 81 No Notes: Memor ia MG Chewable 2-03 Take with l Tablet 15:00: food. [place] 00 Lasix No Notes: Memoria 2-03 (Same [...] form: ERTAB, Daily, Start date: 07/24/16 9:00:00 PRODUCTION ROUSTABOUT, Duration: 30 day, Stop date: 08/22/16 9:00:00 PRODUCTION ROUSTABOUT Insulin No Notes: Memoria Glargine 2-03 Same [...] Notes: Memoria 2-03 (Same l 14:50: as:MORPhin [place] 00 e Sulfate) Insulin, No Notes: Memoria Aspart, 2-03 Roll in l Human 13:30: palms of [place] 00 hands gently; Do not shake vigorously . (Same as: NovoLOG) "single patient use only" WASTE: F/P - Black; E - Municipal Trash Bin Stable for 28 days at room temperatur e. Expires in days from ____Date Dilaudid No Notes: Memoria 2-03 Same as l 11:28: Dilaudid [place] 00 Insulin, No Notes: Memoria Aspart, 2-03 Roll in l Human 08:40: palms of [place] 00 hands gently; Do not shake vigorously [...] Blood Glucose Results, Start date: 07/24/16 2:40:00 PRODUCTION ROUSTABOUT, Duration: 30 day, Stop date: 08/23/16 2:39:00 PRODUCTION ROUSTABOUT Dextrose No 25 gm, 50 Mendoza janice 50% Syringe 2-03 mL, Route: l 08:40: IVP, Drug [place] 00 Form: INJ, Dosing Weight 92.273, kg, PRN, PRN Blood Glucose Results, Start date: 07/24/16 2:40:00 PRODUCTION ROUSTABOUT, Duration: 30 day, Stop date: 08/23/16 2:39:00 PRODUCTION ROUSTABOUT Docusate No Notes: Memoria 2-03 (Same as: l 07:20: Colace) [place] 00 (Do Not Crush) Ondansetron No Notes: Mendoza janice 2-03 (Same as: l 07:20: Zofran) Vin 00 MEDICATION WASTE Product Size: 4 mg Product Wasted: ___ mg Lasix No Notes: Memoria 2-03 (Same as: l 06:01: Lasix) MEDICATION WASTE Product Size: 40 mg Product Wasted: ___ mg Aspirin No Notes: Memoria 2- Take with l 05:48: food. Vin 00 Prednisone No Notes: Memor ia 2- Take with l 05:02: food. Albuterol No Notes: Memori a 0.833 MG/ML 07-24 (Same as: l / 04:09: Duoneb) Vin Ipratropium 00 [place] 0.167 MG/ML Inhalant Solution [DuoNeb] Furosemide 2015-06 Yes 80 mg = 2 Me moria 40 MG Oral 2-26 tab, PO, l Tablet 16:34: BID, # 120 Nidia nn 00 tab, 0 Refill(s) atorvastati 2015-06 Yes 40 mg = 1 M emoria n 40 mg 2-26 tab, PO, l oral tablet 16:34: Bedtime, # [place] 00 30 tab, 0 Refill(s) Insulin 2015-06 [...] tab, PO, l tablet 16:34: Daily, # [place] 00 30 tab, 0 Refill(s) Lasix 2015-06 No Notes: Memoria 2-26 (Same as: l 15:00: Lasix) [place] 00 May cause GI upset. Give with food or milk. Magnesium 2015-06 No Notes: Memori a Oxide 2-24 (Same as: l 13:36: Mag-Ox [place] 00 400) Magnesium oxide 349gs=502t g elemental magnesium Dose=____m g magnesium oxide (___mg elemental magnesium) Magnesium 2015-06 No Notes: Memori a Oxide 2-24 (Same as: l 09:47: Mag-Ox Vin 00 400) Magnesium oxide 665gi=282j g elemental magnesium Dose=____m g magnesium oxide [...] Memoria 2-24 (Same as: l 00:00: Norvasc) [place] 00 Insulin 2015-06 No Notes: Memoria Glargine [...] tab, PO, l tablet 15:35: Daily, 0 [place] 00 Refill(s) Sertraline 2015-06 Yes 200 mg [...] Weight 86.364, kg, Start date: 06/11/16 9:00:00 PRODUCTION ROUSTABOUT, Duration: 30 day, Stop date: 07/10/16 9:00:00 PRODUCTION ROUSTABOUT Insulin 2015-06 No Notes: Memoria Glargine 2-22 Same as: l 100 UNT/ML 15:00: Lantus) Do H ermann Injectable 00 not hold Solution insulin [Lantus] without contacting prescriber WASTE: F/P - Black; E - Municipal Trash Bin Zoloft 2015-06 No Notes: Memoria 2-22 (Same as: l 15:00: Zoloft) [place] 00 Insulin, 2015-06 No Notes: Memoria Aspart, 2-22 Roll in l Human 12:55: palms of [place] 00 hands gently; Do not shake vigorously [...] l / 03:00: Duoneb) Vin Ipratropium 00 [place] 0.167 MG/ML Inhalant Solution [DuoNeb] gabapentin 2015-06 No 300 mg, Mendoza janice 300 MG Oral 08-12 Route: PO, l Capsule 03:00: Drug form: Herm naeem 00 CAP, Q12H, Dosing Weight 86.364, kg, (CrCl 30 - 59 ml/min), Start date: 06/10/16 21:00:00 PRODUCTION ROUSTABOUT, Duration: 30 day, Stop date: 07/10/16 9:00:00 PRODUCTION ROUSTABOUT divalproex 2015-06 No Notes: Memor ia sodium -22 (Same as: l 03:00: Depakote Vin 00 [...] Syringe 2-22 25 mL, l 00:50: Route: [place] 00 IVP, Drug Form: INJ, Dosing Weight 86.364, kg, PRN, PRN Blood Glucose Results, Start date: 06/10/16 18:50:00 PRODUCTION ROUSTABOUT, Duration: 30 day, Stop date: 07/10/16 18:49:00 PRODUCTION ROUSTABOUT Glucagon 2015-06 No 1 mg, Memoria 2-22 Route: IM, l 00:50: Drug form: [place] 00 PDR/INJ, PRN, Dosing Weight 86.364, kg, PRN Blood Glucose Results, Start date: 06/10/16 18:50:00 PRODUCTION ROUSTABOUT, Duration: 30 day, Stop date: 07/10/16 18:49:00 PRODUCTION ROUSTABOUT Hydralazine 2015-06 No Notes: Mendoza janice 2-22 [...] Weight 86.364, kg, Start date: 06/10/16 18:06:00 PRODUCTION ROUSTABOUT, Stop date: 06/10/16 18:06:00 PRODUCTION ROUSTABOUT hydrOXYzine 2015-06 No Notes: Mendoza janice pamoate 2-21 (Same as: l 23:00: Vistaril) Furosemide 2015-06 No 60 mg, Memor ia 2-21 Route: l 22:32: IVP, Drug form: INJ, ONCE, Dosing Weight 86.364, kg, Start date: 06/10/16 16:32:00 PRODUCTION ROUSTABOUT, Stop date: 06/10/16 16:32:00 PRODUCTION ROUSTABOUT Lasix 2015-06 No Notes: Memoria 08-11 (Same as: l 17:22: Lasix) MEDICATION WASTE Product Size: 40 mg Product Wasted: _0__ mg Albuterol 2015-06 No Notes: Memori a 0.833 MG/ML 08-11 (Same as: l / 17:22: Duoneb) Ipratropium 00 [place] 0.167 MG/ML Inhalant Solution [DuoNeb] Promethazin Yes 25 mg = 1 M emoria e 06 supp, GA, l Hydrochlori 14:45: Q6H, Jake n de [...] Dilaudid hydrOXYzine Yes 0 Memori a pamoate 06-26 Refill(s) l 11:18: Vin Dicyclomine Yes 0 Memori a -06 Refill(s) l 11:18: [place] Ondansetron Yes 0 Memori a -06 Refill(s) l 11:17: [place] Benztropine 2015-0 Yes 0 Memori a 1-06 [...] Sodium No 2,000 mL, Memori a Chloride -06 1,000 l 0.154 10:56: ml/hr, MEQ/ML 00 [...] Marx Rate: 500 l 0.9% 23:45: ml/hr, [place] (Bolus) IV 00 Infuse 500 mL over: [...] Hung Murillo 5 mg, Me moria Sulfate 924 Marx Route: l 22:19: IVP, ONCE, Dosing [...] Hung Murillo 500 mL, Me moria Chloride - Marx Rate: l 0.9% 22:19: 1,000 Vin [...] insulin No Blake 10 unit, Mem oria 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 6-11 Deangelo 0.1 mL, l H 02:00: [...] 6-10 Omidvar Route: l 21:33: IVP, ONCE, [place] 00 Start date: 11/29/11 16:33:00, Stop date: [...] 2011-0 No Blake 14 unit, Mem oria 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..] Reglan 2011-0 No Blake 10 mg, 2 Mendzoa janice 6-10 Deangelo mL, Route: l 06:28: [...] gadiel 6-10 Sarah mL, Route: l 04:01: Brayan IVP, Drug [place] 00 form: INJ, ONCE, Priority: STAT, Start [...] Domenico 1,000 mL, Memoria IV 1,000 mL - Rate: l 20:36: 1,000 [place] 00 ml/hr, Infuse over: 1 hr, Route: IV, Dosing Weight 57.273 kg, Total Volume: 1,000, Start date: 11/28/11 15:36:00, Duration: 30 day, Stop date: 12/28/11 15:35:00 Ativan No Arif Domenico 2 mg, 1 Mem oria 6-09 mL, Route: l 20:35: IVP, Drug [place] 00 form: INJ, ONCE, Priority: STAT, Start date: 11/28/11 15:35:00, Stop date: 11/28/11 15:35:00 Novolin R Yes Hughes-Jason 8 unit, M emoria 100 3-30 [place] SUB-Q, l units/mL 17:47: Eunice Q12H, 2 He rmann injectable 42 Pu vial, solution Substituti on Allowed, SOLN Novolin N Yes Hughes-Jason 10 unit, Memoria 100 3-30 [place] SUB-Q, l units/mL 17:46: Eunice Bedtime, H ermann subcutaneou 27 Pu 10 ml, s injection Substituti on Allowed, SUSP Novolin N Yes Hughes-Jason 14 unit, Memoria 100 3-30 [place] SUB-Q, l units/mL 17:44: Eunice QAM, 1 Her braden subcutaneou 37 Pu vial, s injection Substituti on Allowed, SUSP magnesium No Hughes-Jason 400 mg, 1 Memoria oxide 3-30 [place] tab, l 14:55: [place] Route: PO, Her braden 00 Pu Drug form: TAB, ONCE, Priority: STAT, Start date: 09/18/11 9:55:00, Stop date: 09/18/11 9:55:00 Insulin 2011- No Hughes-Jason 8 unit, Mem oria regular 3-30 [place] 0.08 mL, l 14:22: [place] Route: Vin 00 Pu SUB-Q, Drug form: SOLN, ONCE, Priority: STAT, Start date: 09/18/11 9:22:00, Stop date: 09/18/11 9:22:00 Lactated 2012-0 No Hughes-Jason 1,000 mL, Memoria Ringers 3-30 [place] Rate: l (Bolus) IV 14:16: [place] 1,000 He rmann 1,000 mL 00 Pu ml/hr, Infuse over: 1 hr, Route: IV, Total Volume: 1,000, Bolus Dose, Priority: STAT, Start date: 09/18/11 9:16:00, Duration: 1 doses or times, Stop date: 09/18/11 10:15:00 Sodium 2012-0 No Hughes-Jason 1,000 mL, Me moria Chloride 3-30 [place] Rate: l 0.9% 14:06: [place] 1,000 [place] (Bolus) IV 00 Pu ml/hr, 1000 mL Infuse over: 1 hr, Route: IV, kg, Total Volume: 1,000, Bolus Dose, Priority: STAT, Start date: 09/18/11 9:06:00, Duration: 1 doses or times, Stop date: 09/18/11 10:05:00 sulfamethox 2011-0 Yes Substituti Memoria azole 3-30 on Allowed l 14:04: Vin 58 Sodium 2011-0 No Hughes-Jason 1,000 mL, Me moria Chloride 3-30 [place] Rate: l 0.9% 13:56: [place] 1,000 Vin (Bolus) IV 00 Pu ml/hr, 1000 mL Infuse over: 1 hr, Route: IV, kg, Total Volume: 1,000, Bolus Dose, Priority: STAT, Start date: 09/18/11 8:56:00, Duration: 1 doses or times, Stop date: 09/18/11 9:55:00 clindamycin 2011-0 No Eber L 300 mg, 2 Memoria 3-21 Anabelle cap, l 21:00: Route: PO, [place] 00 Drug form: CAP, Q8H, Start date: 09/09/11 16:00:00, Duration: 30 day, Stop date: 10/09/11 8:00:00 Colace 100 2011-0 Yes Luna 100 mg, 1 Memoria mg oral 3-21 Amelia cap, PO, l capsule 18:47: [place] BID, 60 Her braden 19 cap, Substituti on Allowed, CAP clindamycin 2011- Yes Luna 300 mg, 2 Memoria 150 mg oral 3-21 Amelia cap, PO, l capsule 18:46: Zeeshan Q8H, 30 Her braden 55 cap, Substituti on Allowed, CAP [place] Yes Luna 1 tab, PO, Memoria 10/325 oral - Amelia Q4H, PRN, l tablet 18:46: [place] 30 tab, Herm naeem 36 Pain, Substituti on Allowed, Maintenanc e, TAB [place] No Hollie Donavan 1 tab, Mendoza janice 10/325 oral - Mahi Route: PO, l tablet 09:00: Drug Form: Nidia nn 00 TAB, Q4H, Start date: 09/09/11 4:00:00, Duration: 30 day, Stop date: 10/09/11 0:00:00 Colace 100 2011-0 No [place] 100 mg, 1 Memoria mg oral 3-19 Omidvar cap, l capsule 22:00: Route: PO, Herm naeem 00 Drug form: CAP, BID, Start date: 09/07/11 17:00:00, Duration: 30 day, Stop date: 10/07/11 9:00:00 enalapril 2011- No [place] 5 mg, 1 Mem oria 3-19 Omidvar tab, l 15:30: Route: PO, [place] 00 Drug form: TAB, Daily, Start date: 09/07/11 10:30:00, Duration: 30 day, Stop date: 10/07/11 9:00:00 flumazenil 2011-0 No Gayle 0.2 mg, 2 Memoria 3-19 Josefina mL, Route: l 14:19: [place] IVP, Drug Jake n 00 form: INJ, PRN, PRN Benzodiaze pine Reversal, Initial dose, Start date: 09/07/11 9:19:00, Duration: 1 day, Stop date: 09/08/11 9:18:00 naloxone 2011-0 No Gayle 0.04 mg, Me moria 3-19 Josefina 0.1 mL, l 14:19: [place] Route: [place] 00 IVP, Drug form: INJ, Q2MIN, PRN [...] ne 09-06 Josefina 0.25 mL, l 14:19: Route: IVP, Drug form: INJ, Q5Min, PRN [...] Stop date: 10/06/11 23:59:00 normal 2011- No Yruy W 1,000 mL, M emoria saline 0.9% [...] Duration: 30 day, Stop date: 10/04/11 18:10:00 [place] 2011-0 No Mahammad 1 tab, Memori a [...] 3-16 Kavon 0.1 mL, l 14:50: Route: [place] 00 IVP, Drug form: INJ, Q2MIN, PRN Narcotic Reversal, Start date: 09/04/11 9:50:00, Duration: 30 day, Stop date: 10/04/11 9:49:00 [place] 2011-0 No [place] 1 tab, Memoria 10/325 oral 3-16 Omidvar Route: PO, l tablet 14:49: Drug Form: Nidia nn 00 TAB, Q4H, PRN Pain, Start date: 09/04/11 9:49:00, Stop date: 10/04/11 9:48:00 labetalol No Gregory F 5 mg, Mendoza janice 3-16 [place] Route: IV, l 14:40: ONCE, [place] 00 Start date: 09/04/11 9:40:00, Stop date: [...] 3-16 Kavon 0.25 mL, l 13:37: Route: [place] 00 IVP, Drug form: INJ, Q5Min, PRN [...] 3-15 Omidvar tab, l 13:39: Route: PO, [place] Drug form: ERTAB, ONCE, Start date: 09/03/11 8:39:00, Stop date: 09/03/11 8:39:00 [place] 5/325 2011-0 No Rosalino 1 tab, M emoria oral tablet 3-15 Kavon Route: PO, l 05:00: Drug Form: [place] 00 TAB, Q4H, Start date: 09/03/11 0:00:00, [...] 3-14 Anabelle cap, l 17:00: Route: PO, [place] 00 Drug form: ERCAP, Daily, Give qAM after today's dose., Start date: 09/02/11 12:00:00, Duration: 30 day, Stop date: 10/02/11 9:00:00 [place] 5/325 2011-0 No Rosalino 1 tab, M [...] Route: l 14:00: IVPB, Drug form: INJ, [id number], Start date: 09/02/11 9:00:00, Duration: 30 day, Stop date: 10/01/11 21:00:00 clindamycin 2011-0 No Eber L 600 mg, 4 Memoria (SCIP) 3-14 Anabelle mL, Route: l 10:00: IVPB, [place] 00 [id number], Start date: 09/02/11 5:00:00, Duration: 3 doses or times, Stop date: 09/02/11 21:00:00 clindamycin 2011-0 No Yury 600 mg, 4 Memoria (SCIP) 3-14 Silverio mL, Route: l 04:00: [place] IVPB, Vin 00 [id number], Start date: 09/01/11 23:00:00, Duration: 3 doses or times, Stop date: 09/02/11 15:00:00 insulin No [place] 15 unit, Mendoza janice 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 3-14 Omidvar 0.15 mL, l H 02:00: Route: Vin 00 SUB-Q, Drug form: INJ, Q12H, Start date: 09/01/11 21:00:00, Stop date: 10/01/11 9:00:00 labetalol No Mariaelena-Corea 5 mg, Me moria 3-14 Barbra Route: l 01:07: Feliciano IVP, [place] 00 Q5Min, PRN Elevated BP, Start date: [...] naloxone No Mariaelena-Corea 0.04 mg, Memoria 3-14 Barbar Route: l 01:07: Feliciano IVP, Vin 00 Q2MIN, PRN Narcotic Reversal, Start date: 09/01/11 20:07:00, Duration: 8 doses or times, Stop date: Limited # of times flumazenil No Mariaelena-Corea 0.2 mg, Memoria 3-14 Barbra Route: l 01:07: Feliciano IVP, PRN, [place] 00 PRN Benzodiaze pine Reversal, Initial dose, Start date: 09/01/11 20:07:00, Duration: 30 day, Stop date: 10/01/11 20:06:00 ondansetron 2011-0 No Mariaelena-Corea 4 mg, Memoria 3-14 Barbra Route: l 01:07: Feliciano IVP, ONCE, [place] 00 PRN Nausea & Vomiting, Start date: 09/01/11 20:07:00 vancomycin 2011-0 No Mele 1 gm, Mem oria 3-14 Gauvain Route: l 01:00: IVPB, Drug form: INJ, [id number], Start date: 09/01/11 20:00:00, Duration: 30 day, [...] Route: l 00:00: IVPB, Drug form: INJ, [id number], Start date: 09/01/11 19:00:00, Duration: 30 day, [...] Movva mL, Route: l 23:23: IVP, Drug [place] Form: INJ, PRN, PRN Blood Glucose Results, Start date: 09/01/11 18:23:00, Duration: 30 day, Stop date: 10/01/11 18:22:00 morphine 2011-0 No Daja Shannan 2 mg, 1 M emoria Sulfate 3-13 Beni mL, Route: l 21:14: IVP, Drug [place] form: INJ, Q4H, PRN Severe Pain, Start date: 09/01/11 16:14:00, Stop date: 10/01/11 16:13:00 Lactated 2011-0 No Cesar 1,000 mL, Me moria Ringers IV 3-13 [place] Rate: 100 l 1,000 mL 19:03: ml/hr, [...] [place] Rate: l 0.9% 14:53: Gurinder 1,000 [place] (Bolus) IV 00 ml/hr, 1,000 mL Infuse [...] 3-13 [place] Rate: l 0.9% 10:41: 1,000 [place] (Bolus) IV 00 ml/hr, 1000 mL Infuse over: 1 hr, Route: IV, Dosing Weight 68.182 kg, Total Volume: 1,000, [place] Dose, Priority: STAT, Start date: 09/01/11 5:41:00, Duration: 1 doses or times, Stop date: 09/01/11 6:40:00 ondansetron 2011-0 No Bee L 4 mg, Memoria 3-13 [place] Route: l 09:06: IVP, Drug [place] 00 form: INJ, ONCE, Priority: STAT, Start date: 09/01/11 4:06:00, Stop date: 09/01/11 4:06:00 morphine 2011-0 No Bee L 4 mg, Mem oria Sulfate 3-13 [place] Route: l 09:06: IVP, ONCE, [place] 00 Priority: STAT, Start date: 09/01/11 4:06:00, Stop date: 09/01/11 4:06:00 Sodium 2011-0 No Bee L 1,000 mL, M emoria Chloride - [place] Rate: l 0.9% 08:42: 1,000 [place] (Bolus) IV 00 ml/hr, 1000 mL Infuse over: 1 hr, Route: IV, Dosing Weight 68.182 kg, Total Volume: 1,000, [place] Dose, Priority: STAT, Start date: 09/01/11 3:42:00, Duration: 1 doses or times, Stop date: 09/01/11 4:41:00 Insulin 2011- No Bee L 8 unit, Me moria regular 08-31 [place] 0.08 mL, l 08:30: Route: [place] 00 IVP, Drug form: SOLN, ONCE, Priority: STAT, Start date: 09/01/11 3:30:00, Stop date: 09/01/11 3:30:00 Sodium 2011- No Bee L 1,000 mL, M emoria Chloride 08-31 [place] Rate: l 0.9% 07:29: 1,000 [place] (Bolus) IV 00 ml/hr, 1,000 mL Infuse over: 1 hr, Route: IV, Dosing Weight 68.182 kg, Total Volume: 1,000, [place] Dose, Priority: STAT, Start date: 09/01/11 2:29:00, Duration: 1 doses or times, Stop date: 09/01/11 3:28:00 potassium 2011- No Velásquez Noam 40 mEq, 2 Memoria chloride 3-04 Akmal tab, l 15:00: Route: PO, [place] 00 Drug form: ERTAB, BID, Start date: 08/23/11 9:00:00, Duration: 2 doses or times, Stop date: 08/23/11 17:00:00 amLODipine Yes Velásquez Noam 5 mg, 1 Memoria 5 mg oral -04 Akmal tab, PO, l tablet 14:45: Daily, [...] Akmal SUB-Q, l units/mL 14:42: BID, 3 [place] subcutaneou 04 vial, 3, s injection 3, Substituti on Allowed, SUSP insulin Yes Velásquez Noam 5 Units, Memoria regular 3-04 Akmal SUB-Q, l human 14:40: TID, 30 [place] recombinant 10 vial, 3, 100 3, units/mL Substituti injectable on solution Allowed, before breakfast lunch and dinner, SOLNbefore breakfast lunch and dinner potassium No Velásquez Noam 20 mEq, Memoria chloride 3-04 Akmal 100 mL, l 14:00: Route: Vin IVPB, Drug form: INJ, Q2H, Start date: [...] Akmal mL, Route: l 12:26: IVPB, Drug [place] 00 form: INJ, ONCE, Total dose = [...] Rodriguez 10 mL, l 16:25: Ahmed Route: [place] 00 IVPB, ONCE, Start date: 08/22/11 10:25:00, [...] mL, Route: l 17:15: Ahmed IVP, Drug [place] 00 form: INJ, Q8H, PRN Nausea, Start date: 08/20/11 11:15:00, Duration: 30 day, Stop date: 09/19/11 11:14:00 insulin 2011-0 No Yury 10 unit, Mem oria 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 3- [place]ato Route: l H 16:00: River[place] SUB-Q, Nidia nn 00 ONCE, Start date: 08/20/11 10:00:00, Stop date: 08/20/11 10:00:00 trazodone 2012-0 Yes 200 mg, 2 Mem oria 100 mg oral 3-01 tab, PO, l tablet 15:37: Bedtime, [place] 27 90 tab, Substituti on Allowed, TAB benztropine 2011-0 Yes 1 mg, 1 Mem oria 1 mg oral 3-01 tab, PO, l tablet 15:35: BID, 60 [place] 25 tab, Substituti on Allowed, TAB Geodon 60 2012-0 Yes 120 mg, 2 Mem oria mg oral 3-01 cap, PO, l capsule 15:35: Bedtime, Jake n 12 60 cap, Substituti on Allowed, CAP insulin 2011-0 No Yury 10 unit, Mem oria 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 3-01 [place] Route: l H 15:00: Rivero [...] 08/20/11 3:38:00, Stop date: 08/20/11 3:38:00 Insulin 2011- No Velásquez Noam 10 unit, Memoria regular - Akmal SUB-Q, l 09:28: BID, Vin 23 Substituti on Allowed insulin No 10 unit, 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- SUB-Q, l H 09:26: BID, Vin [...] 2011-0 No Yury 18 unit, Mem oria 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 3- [place]ato 0.18 mL, l H 08:58: [...] 30 day, Stop date: 09/19/11 3:45:00 ondansetron 0 No [facility] [place] Route: l 07:42: Dawson IVP, Drug Herm naeem 00 Pu form: INJ, ONCE, Priority: STAT, Start date: 08/20/11 1:42:00, Stop date: 08/20/11 1:42:00 GI cocktail 0 No Hughes-Jason 30 ml, Memoria 08-19 [place] Route: PO, l 05:12: Eunice Drug Form: Her braden 00 Pu SUSP, ONCE, STAT, Start date: 08/19/11 23:12:00, Stop date: 08/19/11 23:12:00 ondansetron 0 No Hughes[facility]Jason [facility] [place] Route: PO, l 05:10: [place] Drug form: Her braden 00 Pu TABDIS, ONCE, Priority: STAT, Start date: 08/19/11 23:10:00, Stop date: 08/19/11 23:10:00 Lactated 2011-0 No Hughes-Jason 1,000 mL, Memoria Ringers 3-01 [place] Rate: l (Bolus) IV 05:10: [place] 1,000 He rmann 1000 mL 00 Pu ml/hr, Infuse over: 1 hr, Route: IV, Total Volume: 1,000, [place] Dose, Priority: STAT, Start date: 08/19/11 23:10:00, Duration: 1 doses or times, Stop date: 08/20/11 0:09:00 Insulin 2011-0 No Hughes-Jason 7 unit, Mem oria regular - [place] 0.07 mL, l 04:15: Dawson Route: [place] 00 Pu SUB-Q, Drug form: SOLN, ONCE, Priority: STAT, Start date: 08/19/11 22:15:00, Stop date: 08/19/11 22:15:00 Geodon 60 2011-0 No Yury 60 mg, 1 M emoria mg oral 2-29 [place] cap, PO, l capsule 23:24: Rivero BID, 180 [place] 43 cap, Substituti on Allowed, CAP trazodone 2011- No 300 mg, 1 Mem oria 300 mg oral 2-29 tab, PO, l tablet 23:23: Bedtime, Vin 58 15 tab, Substituti on Allowed, TAB Effexor XR 2011- Yes Yury 75 mg, 1 Memoria 75 [...] cocktail No William 40 mL, Me moria - [...] Wong Route: IV, l 21:57: Pooja ONCE, [place] 00 Start date: 08/19/11 15:57:00, Stop date: 08/19/11 15:57:00 Lactated No William 1,000 mL, Me moria Ringers [...] 2020-02-20 Completed Univers[facility] Vaccine 00:00:00 [facility] Influenza Virus 2020-02-20 Completed Universit y of Vaccine 00:00:00 [facility] TDAP (ADACEL) VACCINE 2019-07-25 Completed Uni versity of 00:00:00 [facility] Meningococcal B, OMV 2019-07-25 Completed Univ ersity of 00:00:00 [facility] Meningococcal 2019-07-25 Completed University of Polysaccharide 00:00:00 [facility] (groups A, C, Y and Branc h W-135) conjugate vaccine (MCV4P) TDAP (ADACEL) VACCINE 2019-07-25 Completed Uni versity of 00:00:00 [facility] Meningococcal B, OMV 2019-07-25 Completed Univ ersity of 00:00:00 [facility] Meningococcal 2019-07-25 Completed University of Polysaccharide 00:00:00 [facility] (groups A, C, Y and [...] vaccine, inactivated 00:00:00 pneumococcal 2017-10-25 Completed Shahid [facility] asiya 23-valent vaccine 00:00:00 Influenza Virus 2017-06-22 Completed Universit y of Vaccine Quad IM 3+ 00:00:00 [facility] Influenza Virus 2017-06-22 Completed Universit y of Vaccine Quad IM 3+ 00:00:00 [facility] Influenza Virus 2016-04-02 Completed Universit y of Vaccine Quad IM 3+ 00:00:00 [facility] Influenza Virus 2016-04-02 Completed Universit y of Vaccine Quad IM 3+ 00:00:00 [facility] Influenza Virus 2015-10-28 Completed Universit y of Vaccine Quad IM 3+ 00:00:00 [facility] Influenza Virus 2015-10-28 Completed Universit y of Vaccine Quad IM 3+ 00:00:00 [facility] Vital Signs Vital Name Observation Time [...] 2020-06-27 16:33:00 171 mm[Hg] Univer sity of [facility] Diastolic blood 2020-06-27 16:33:00 98 mm[Hg] Unive rsity of [facility] Heart rate 2020-06-27 16:33:00 71 /min Universi ty [facility] Respiratory rate 2020-06-27 16:29:00 19 /min Univ ersity of [facility] Body height 2020-06-27 16:29:00 154.9 cm Universi ty [facility] Body weight 2020-06-27 16:29:00 [facility] 2020-06-27 16:29:00 32.20 kg/m2 [facility] Branch Oxygen saturation in 2020-06-27 16:29:00 99 /min University Arterial blood by [facility] Pulse oximetry Branch Height/Length 2021-07-08 11:50:13 154.9 cm Measured Weight Dosing 2021-07-08 11:50:13 85.00 kg Height/Length 2021-07-08 11:47:31 154.9 cm Measured Weight Dosing 2021-07-08 11:47:31 85.00 kg Height/Length 2021-07-08 11:47:20 154.9 cm Measured Weight Dosing 2021-07-08 11:47:20 85.00 kg Systolic blood 2021-07-08 19:43:00 189 mm[Hg] [facility] pressure Diastolic blood 2021-07-08 19:43:00 104 mm[Hg] [facility] pressure Heart rate 2021-07-08 18:56:00 74 /min [facility] Body temperature 2021-07-08 18:56:00 36.39 Cathleen [facility] Body height 2021-07-08 18:56:00 157.5 cm [facility] Body weight 2021-07-08 18:56:00 72.938 kg [facility] BMI 2021-07-08 18:56:00 29.41 kg/m2 [facility] Oxygen saturation in 2021-07-08 18:56:00 100 /min [facility] Arterial blood by Pulse oximetry Respiratory rate 2021-06-18 16:36:00 11 /min [facility] Systolic (mm Hg) 2021-01-29 20:03:00 Mendoza rial Vin Diastolic (mm Hg) 2021-01-29 20:03:00 Mem orial Vin Systolic (mm Hg) 2021-01-29 19:40:00 Mendoza rial Vin Diastolic (mm Hg) 2021-01-29 19:40:00 Mem orial [place] Systolic (mm Hg) 2021-01-29 18:05:00 Mendoza rial Vin Diastolic (mm Hg) 2021-01-29 18:05:00 Mem orial Vin Respitory Rate 2021-01-29 16:55:00 Memori al [place] Temperature Oral (F) 2021-01-29 16:45:00 97.3 F [facility] [place] Respitory Rate 2021-01-29 16:45:00 Memori al [place] Respitory Rate 2021-01-29 16:30:00 Memori al [place] Temperature Oral (F) 2021-01-29 13:10:00 97.6 F Memorial Vin Systolic (mm Hg) 2021-01-27 05:00:00 Mendoza rial Vin Diastolic (mm Hg) 2021-01-27 05:00:00 Mem orial [place] Systolic (mm Hg) 2021-01-27 04:00:00 Mendoza rial Vin Diastolic (mm Hg) 2021-01-27 04:00:00 Mem orial Vin Systolic (mm Hg) 2021-01-27 03:00:00 Mendoza rial [place] Diastolic (mm Hg) 2021-01-27 03:00:00 Mem orial Vin Respitory Rate 2021-01-26 19:00:00 Memori al Vin Respitory Rate 2021-01-26 18:00:00 Memori al Vin Respitory Rate 2021-01-26 17:00:00 Memori al [place] Temperature Oral (F) 2021-01-22 13:00:00 97.6 F Memorial Vin Height 2021-01-21 18:25:00 149.86 cm [facility] [place] Weight 2021-01-21 18:25:00 [facility] [place] BMI Calculated 2021-01-21 18:25:00 Memori al Vin Height 2021-01-21 17:09:00 157.48 cm Memorial Vin Height 2021-01-21 13:09:00 157.48 cm [facility] [place] Weight 2021-01-21 13:09:00 [facility] Vin BMI Calculated 2021-01-21 13:09:00 Memori al [place] Heart Rate 2021-01-21 12:50:00 [facility] [place] Systolic (mm Hg) 2020-12-24 15:43:00 Mendoza rial Vin Diastolic (mm Hg) 2020-12-24 15:43:00 Mem orial [place] Heart Rate 2020-12-24 15:43:00 [facility] Vin Height 2020-12-24 15:43:00 154.94 cm [facility] Vin Weight 2020-12-24 15:43:00 [facility] Vin BMI Calculated 2020-12-24 15:43:00 Memori al [place] Systolic (mm Hg) 2016-07-30 14:00:00 Mendoza rial Vin Diastolic (mm Hg) 2016-07-30 14:00:00 Mem orial [place] Respitory Rate 2016-07-30 14:00:00 Memori al [place] Heart Rate 2016-07-30 14:00:00 [facility] Vin Temperature Oral (F) 2016-07-30 14:00:00 97.4 F [facility] [place] Systolic (mm Hg) 2016-07-30 10:45:00 Mendoza rial Vin Diastolic (mm Hg) 2016-07-30 10:45:00 Mem orial [place] Heart Rate 2016-07-30 10:45:00 [facility] Vin Temperature Oral (F) 2016-07-30 10:45:00 97.2 F [facility] Vin Respitory Rate 2016-07-30 10:45:00 Memori al Vin Heart Rate 2016-07-30 06:35:00 [facility] [place] Temperature Oral (F) 2016-07-30 06:35:00 97.0 F [facility] Vin Respitory Rate 2016-07-30 06:35:00 Memori al Vin Systolic (mm Hg) 2016-07-30 06:35:00 Mendoza rial Vin Diastolic (mm Hg) 2016-07-30 06:35:00 Mem orial Vin Weight 2016-07-24 02:13:00 [facility] [place] BMI Calculated 2016-07-24 02:13:00 Memori al [place] Height 2016-07-24 02:13:00 160.02 cm Memorial Vin Respitory Rate 2016-06-15 15:00:00 Memori al Vin Systolic (mm Hg) 2016-06-15 15:00:00 Mendoza rial [place] Diastolic (mm Hg) 2016-06-15 15:00:00 Mem orial Vin Respitory Rate 2016-06-15 14:00:00 Memori al [place] Systolic (mm Hg) 2016-06-15 14:00:00 Mendoza rial [place] Diastolic (mm Hg) 2016-06-15 14:00:00 Mem orial Vin Respitory Rate 2016-06-15 13:29:00 Memori al Vin Systolic (mm Hg) 2016-06-15 13:29:00 Mendoza rial [place] Diastolic (mm Hg) 2016-06-15 13:29:00 Mem orial Vin Temperature Oral (F) 2016-06-14 10:56:00 97.1 F [facility] [place] Temperature Oral (F) 2016-06-14 06:55:00 97.1 F Memorial Vin Temperature Oral (F) 2016-06-12 10:00:00 96.8 F [facility] [place] Weight 2016-06-11 04:25:00 [facility] [place] Height 2016-06-11 04:25:00 160.02 cm [facility] [place] BMI Calculated 2016-06-11 04:25:00 Memori al Vin Heart Rate 2016-06-11 02:04:00 [facility] Vin Heart Rate 2016-06-11 00:00:00 [facility] [place] Heart Rate 2016-06-10 20:30:00 [facility] [place] Weight 2016-06-10 16:04:00 [facility] [place] BMI Calculated 2016-06-10 16:04:00 Memori al Vin Height 2016-06-10 16:04:00 160.02 cm [facility] Vin Temperature Oral (F) 2014-06-26 15:12:00 98.0 F [facility] [place] Systolic (mm Hg) 2014-06-26 15:12:00 Mendoza rial [place] Heart Rate 2014-06-26 15:12:00 [facility] [place] Diastolic (mm Hg) 2014-06-26 15:12:00 Mem orial Vin Respitory Rate 2014-06-26 15:12:00 Memori al Vin Systolic (mm Hg) 2014-06-26 13:53:00 Mendoza rial Vin Diastolic (mm Hg) 2014-06-26 13:53:00 Mem orial Vin Respitory Rate 2014-06-26 13:53:00 Memori al Vin Temperature Oral (F) 2014-06-26 13:53:00 98.0 F [facility] [place] Temperature Oral (F) 2014-06-26 12:37:00 98.2 F [facility] [place] Respitory Rate 2014-06-26 12:37:00 Memori al [place] Systolic (mm Hg) 2014-06-26 12:37:00 Mendoza rial Ivn Diastolic (mm Hg) 2014-06-26 12:37:00 Mem orial Vin Heart Rate 2014-06-26 09:21:00 [facility] Vin Heart Rate 2014-06-26 06:08:00 [facility] [place] Height 2014-06-26 05:35:00 154.94 cm [facility] [place] Weight 2014-06-26 05:35:00 [facility] [place] BMI Calculated 2014-06-26 05:35:00 Memori al Vin Respitory Rate 2013-04-15 06:10:00 Memori al [place] Diastolic (mm Hg) 2013-04-15 06:10:00 Mem orial [place] Heart Rate 2013-04-15 06:10:00 [facility] [place] Systolic (mm Hg) 2013-04-15 06:10:00 Mendoza rial Vin Temperature Oral (F) 2013-04-15 06:10:00 98.7 F [facility] Vin Respitory Rate 2013-04-15 05:37:00 Memori al [place] Diastolic (mm Hg) 2013-04-15 05:37:00 Mem orial Vin Systolic (mm Hg) 2013-04-15 05:37:00 Mendoza rial [place] Temperature Oral (F) 2013-04-15 05:37:00 98.2 F [facility] [place] Heart Rate 2013-04-15 05:37:00 [facility] Vin Height 2013-04-15 02:06:00 160.02 cm [facility] Vin Weight 2013-04-15 02:06:00 [facility] [place] Temperature Oral (F) 2013-04-15 02:06:00 98.6 F [facility] Vin Respitory Rate 2013-04-15 02:06:00 Memori al [place] Heart Rate 2013-04-15 02:06:00 [facility] Vin Diastolic (mm Hg) 2013-04-15 02:06:00 Mem orial [place] Systolic (mm Hg) 2013-04-15 02:06:00 Mendoza rial [place] Weight 2012-03-14 21:33:00 [facility] [place] Systolic (mm Hg) 2011-12-01 00:33:00 Mendoza rial Vin Respitory Rate 2011-12-01 00:33:00 Memori al [place] Heart Rate 2011-12-01 00:33:00 [facility] [place] Diastolic (mm Hg) 2011-12-01 00:33:00 Mem orial Vin Temperature Oral (F) 2011-12-01 00:33:00 99.6 F [facility] Vin Diastolic (mm Hg) 2011-11-30 21:00:00 Mem orial Vin Heart Rate 2011-11-30 21:00:00 [facility] [place] Respitory Rate 2011-11-30 21:00:00 Memori al Vin Systolic (mm Hg) 2011-11-30 21:00:00 Mendoza rial Vin Temperature Oral (F) 2011-11-30 21:00:00 99.8 F [facility] [place] Respitory Rate 2011-11-30 16:30:00 Memori al Vin Systolic (mm Hg) 2011-11-30 16:30:00 Mendoza rial Vin Diastolic (mm Hg) 2011-11-30 16:30:00 Mem orial Vin Heart Rate 2011-11-30 16:30:00 [facility] [place] Temperature Oral (F) 2011-11-30 16:30:00 99.8 F [facility] [place] Weight 2011-11-29 11:40:00 [facility] [place] Height 2011-11-29 11:40:00 157.48 cm [facility] [place] Weight 2011-11-28 17:16:00 [facility] Vin Weight 2011-09-18 13:30:00 [facility] [place] Height 2011-09-18 13:30:00 154.94 cm [facility] Vin Heart Rate 2011-09-09 13:31:00 [facility] [place] Systolic (mm Hg) 2011-09-09 13:02:00 Mendoza rial [place] Diastolic (mm Hg) 2011-09-09 13:02:00 Mem orial Vin Respitory Rate 2011-09-09 13:02:00 Memori al [place] Temperature Oral (F) 2011-09-09 13:02:00 97.5 F [facility] Vin Diastolic (mm Hg) 2011-09-09 08:00:00 Mem orial Vin Heart Rate 2011-09-09 08:00:00 [facility] Vin Temperature Oral (F) 2011-09-09 08:00:00 98.6 F [facility] [place] Respitory Rate 2011-09-09 08:00:00 Memori al Vin Systolic (mm Hg) 2011-09-09 08:00:00 Mendoza rial [place] Respitory Rate 2011-09-09 04:55:00 Memori al [place] Diastolic (mm Hg) 2011-09-09 04:55:00 Mem orial [place] Systolic (mm Hg) 2011-09-09 04:55:00 Mendoza rial Vin Heart Rate 2011-09-09 04:55:00 [facility] Vin Temperature Oral (F) 2011-09-09 00:55:00 98.7 F [facility] [place] Weight 2011-09-01 19:59:00 [facility] Vin Height 2011-09-01 19:59:00 154.94 cm [facility] [place] Height 2011-09-01 07:01:00 154.94 cm [facility] Vin Weight 2011-09-01 07:01:00 [facility] Vin Respitory Rate 2011-08-23 18:00:00 Memori al [place] Heart Rate 2011-08-23 18:00:00 [facility] [place] Systolic (mm Hg) 2011-08-23 18:00:00 Mendoza rial Vin Diastolic (mm Hg) 2011-08-23 18:00:00 Mem orial [place] Temperature Oral (F) 2011-08-23 18:00:00 97.7 F [facility] Vin Heart Rate 2011-08-23 14:24:00 [facility] Vin Temperature Oral (F) 2011-08-23 14:24:00 98.2 F [facility] [place] Diastolic (mm Hg) 2011-08-23 14:24:00 Mem orial [place] Systolic (mm Hg) 2011-08-23 14:24:00 Mendoza rial Vin Respitory Rate 2011-08-23 14:24:00 Memori al Vin Systolic (mm Hg) 2011-08-23 11:15:00 Mendoza rial [place] Diastolic (mm Hg) 2011-08-23 11:15:00 Mem orial Vin Temperature Oral (F) 2011-08-23 11:00:00 98.3 F [facility] Vin Heart Rate 2011-08-23 11:00:00 [facility] [place] Respitory Rate 2011-08-22 22:00:00 Memori al [place] Height 2011-08-20 09:12:00 154.94 cm [facility] [place] Weight 2011-08-20 09:12:00 [facility] [place] Height 2011-08-19 20:28:00 154.94 cm [facility] Weight 2011-08-19 20:28:00 [facility] Procedures Procedure Date / Time Performing Clinician Source Performed POC GLUCOSE 2021-06-18 17:00:00 Aurelio Schumacher spital HEPATITIS B SURFACE 2021-06-18 14:07:00 Kenneth [facility] ANTIGEN VANCOMYCIN LEVEL, RANDOM 2021-06-18 13:44:00 [facility] HC COMPLETE BLD COUNT 2021-06-18 13:44:00 Endy [facility] W/AUTO DIFF BASIC METABOLIC PANEL 2021-06-18 11:[facility] ESTIMATED GFR 2021-06-18 11:27:00 Aurelio Schumacher Ho spital POC GLUCOSE 2021-06-18 08:07:00 [facility] HEMODIALYSIS 2021-06-18 06:16:53 Bill Cooper spital POC GLUCOSE 2021-06-18 01:26:00 Aurelio [facility]acher [facility] POC GLUCOSE 2021-06-17 21:58:00 Aurelio [facility]acher [facility] HEM[facility]IALYSIS 2021-06-17 18:25:[facility] 2021-06-17 17:36:00 [facility]lio [facility]acher [facility] POC GLUCOSE 2021-06-17 13:51:00 Aurelio Schumacher Ho spital BASIC METABOLIC PANEL 2021-06-17 11:16:00 [facility] HC COMPLETE BLD COUNT 2021-06-17 11:16:00 [facility] W/AUTO DIFF ESTIMATED GFR 2021-06-17 11:16:00 [facility] POC GLUCOSE 2021-06-17 02:50:00 [facility] CONSULT TO OSTOMY CARE 2021-06-17 00:31:48 [facility] NURSE HC COMPLETE BLD COUNT 2021-06-16 23:31:00 [facility] W/AUTO DIFF BASIC METABOLIC PANEL 2021-06-16 23:31[facility] 2021-06-16 23:31:00 [facility] POC GLUCOSE 2021-06-16 23:19:00 [facility] OR FL < 1 HOUR 2021-06-16 22:49:00 Mando Diaz [facility] ANAEROBIC CULTURE 2021-06-16 22:36:00 [facility] FUNGUS C[facility] 2021-06-16 22:36:00 Mando Diaz [facility] AEROBIC CULTURE 2021-06-16 22:36:00 Kaci Diaz[facility]arlos [facility] GRAM STAIN 2021-06-16 22:36:00 Kaci Diazlie [facility] GA AN ELECTIVE 2021-06-16 21:30:00 Jocelyne Zepeda [facility] SUPRAGLOTTIC AIRWAY AORTOGRAPHY, POSSIBLE 2021-06-16 21:17:00 Mando Diaz [facility] ANGIOPLASTY Diaz-Hsi POC , URINE 2021-06-16 20:46:00 [facility] POTASSIUM LEVEL 2021-06-16 17:28:00 Isabell Dickerson [facility] Larry Romero POC GLUCOSE 2021-06-16 11:39:00 [facility] BASIC METABOLIC PANEL 2021-06-16 10:08:00 Wander [facility] HC COMPLETE BLD COUNT 2021-06-16 10:08:00 [facility] W/AUTO DIFF PROTHROMBIN TIME WITH INR 2021-06-16 10:08:00 [facility] PARTIAL THROMBOPLASTIN 2021-06-16 10:08:00 [facility] TIME (PTT) TYPE AND SCREEN 2021-06-16 10:08:00 [facility] ESTIM[facility] GFR 2021-06-16 10:08:00 [facility] POC GLUCOSE 2021-06-16 01:59:00 [facility] POC GLUCOSE 2021-06-15 22:58:00 [facility] COVID-19 QUALITATIVE 2021-06-15 19:29:00 Wander Kacyradha [facility] RT-PCR POC GLUCOSE 2021-06-15 17:42:00 [facility] HEMODIALYSIS 2021-06-15 16:17:54 Delfino Akbar [facility] POC GLUCOSE 2021-06-15 15:41:00 [facility] POC GLUCOSE 2021-06-15 13:44:00 [facility] POC GLUCOSE 2021-06-15 13:00:00 [facility] ECG 12-LEAD 2021-06-15 12:48:21 Leni Barkertal HC COMPLETE BLD COUNT 2021-06-15 11:42:00 [facility] W/AUTO DIFF BASIC METABOLIC PANEL 2021-06-15 11:42:00 [facility] ESTIMATED GFR 2021-06-15 11:42:00 [facility] POC GLUCOSE 2021-06-15 01:31:00 [facility] US DUPLEX ARTERIAL LOWER 2021-06-14 21:55:33 [facility] EXTREMITY RIGHT POC GLUCOSE 2021-06-14 21:51:00 [facility] POC GLUCOSE 2021-06-14 17:36:00 [facility] POC GLUCOSE 2021-06-14 13:30:00 [facility] POC GLUCOSE 2021-06-14 13:29:00 [facility] HC COMPLETE BLD COUNT 2021-06-14 10:13:00 [facility] W/AUTO DIFF BASIC METABOLIC PANEL 2021-06-14 10:13:00 [facility] ESTIMATED GFR 2021-06-14 10:13:00 [facility] POC GLUCOSE 2021-06-14 02:45:00 [facility] POC GLUCOSE 2021-06-13 21:47:00 [facility] POC GLUCOSE 2021-06-13 20:46:00 [facility] COMPREHENSIVE METABOLIC 2021-06-13 16:10:00 [facility] PANEL ESTIMATED GFR 2021-06-13 16:10:00 [facility] CBC WITH PLATELET AND 2021-06-13 16:10:00 [facility] DIFFERENTIAL HEMODIALYSIS 2021-06-13 15:26:35 [facility] POC GLUCOSE 2021-06-13 14:30:00 [facility] VANCOMYCIN LEVEL, RANDOM 2021-06-13 10:59:00 Juwan Krueger [facility] POC GLUCOSE 2021-06-13 10:40:00 [facility] POC GLUCOSE 2021-06-13 02:28:00 [facility] POC GLUCOSE 2021-06-13 00:16:00 [facility] POC GLUCOSE 2021-06-12 23:31:00 [facility] POC GLUCOSE 2021-06-12 23:14:00 [facility] POC GLUCOSE 2021-06-12 18:19:00 [facility] POC GLUCOSE 2021-06-12 14:37:00 [facility] POC GLUCOSE 2021-06-12 14:01:00 [facility] POC GLUCOSE 2021-06-12 03:03:00 Holden Nagel marilyn Ram[facility] CT HEAD WO CONTRAST 2021-06-12 00:53:[facility] 2021-06-11 18:08:00 [facility] POC GLUCOSE 2021-06-11 13:39:00 Nagel, [facility]en [facility] HEMODIALYSIS 2021-06-11 12:38:38 EsdrasblankagracielaDickborisnaun [facility] POC GLUCOSE 2021-06-11 02:01:00 Robe, Holden [facility] POC GLUCOSE 2021-06-10 22:15:00 Nagel, [facility] POC GLUCOSE 2021-06-10 17:39:00 Nagel, [facility] POC GLUCOSE 2021-06-10 16:05:00 Nagel, [facility]rip [facility] TISSUE CULTURE 2021-06-10 15:08:00 Pati, [facility] GRAM STAIN 2021-06-10 15:08:00 Pati, [facility]wan [facility] ANAEROBIC CULTURE 2021-06-10 15:04:00 Pati [facility] FUNGUS CULTURE 2021-06-10 15:04:00 Pati, Juwan Whyte spital AEROBIC CULTURE 2021-06-10 15:04:00 Pati, Juwan Whyte spital AFB CULTURE 2021-06-10 15:04:00 Pati, Juwan Whyte spital GRAM STAIN 2021-06-10 15:04:00 Pati, Juwan Whyte spital AFB STAIN 2021-06-10 15:04:00 Pati, Juwan Whyte spital GA AN ELECTIVE 2021-06-10 14:26:00 Sofi Roach spital SUPRAGLOTTIC AIRWAY Marquita INCISION AND DRAINAGE, 2021-06-10 14:26:00 Pati, [facility] LOWER EXTREMITY HC COMPLETE BLD COUNT 2021-06-10 10:20:00 , [facility] W/AUTO DIFF BASIC METABOLIC PANEL 2021-06-10 10:20:00 , [facility] PROTHROMBIN TIME WITH INR 2021-06-10 10:20:00 [facility] PARTIAL THROMBOPLASTIN 2021-06-10 10:20:00 [facility] TIME (PTT) TYPE AND SCREEN 2021-06-10 10:20:00 Holden Nagel spital Ramírez ESTIMATED GFR 2021-06-10 10:20:00 Juwan Krueger Ho spital POC GLUCOSE 2021-06-10 03:11:00 Nagel, Holden Ferrara spital Ramírez POC GLUCOSE 2021-06-10 01:30:00 Nagel, Holden Ferrara spital Ramírez POC GLUCOSE 2021-06-09 22:22:00 Nagel, Holden Whyte Ho spital Ramírez POC GLUCOSE 2021-06-09 13:55:00 Nagel, Holden Ferrara spital Ramírez HEMODIALYSIS 2021-06-09 13:20:01 [facility] VANCOMYCIN LEVEL, RANDOM 2021-06-09 11:46:00 [facility] POC GLUCOSE 2021-06-09 02:06:00 Holden Nagel spital Ramírez POC GLUCOSE 2021-06-08 22:23:00 Nagel, Holden Whyte Ho spital Ramírez POC GLUCOSE 2021-06-08 17:53:00 Holden Nagel spital Ramírez HC COMPLETE BLD COUNT 2021-06-08 16:06:00 [facility] W/AUTO DIFF POC GLUCOSE 2021-06-08 13:56:00 Holden Nagel spital Ramírez URINE CULTURE 2021-06-08 03:56:00 Holden Nagel spital Ramírez URINALYSIS SCREEN AND 2021-06-08 03:32:00 [facility] MICROSCOPY, WITH REFLEX TO CULTURE POC GLUCOSE 2021-06-08 01:15:00 Holden Nagel spital Ramírez POC GLUCOSE 2021-06-07 22:07:00 Holden Nagel spital Ramírez POC GLUCOSE 2021-06-07 18:01:00 Holden Nagel spital Ramírez BASIC METABOLIC PANEL 2021-06-07 14:15:00 [facility] ESTIMATED GFR 2021-06-07 14:15:00 Nagel, Holden [facility] spital Ramírez POC GLUCOSE 2021-06-07 13:56:00 Nagel, Holden [facility] spital Ramírez POC GLUCOSE 2021-06-07 02:54:00 Nagel, Holden Whyte Ho spital Ramírez CT LOWER EXTREMITY W 2021-06-07 01:22:59 [facility] CONTRAST RIGHT POC GLUCOSE 2021-06-06 23:50:00 Nagel, Holden Holmanist Ho spital Ramírez POC GLUCOSE 2021-06-06 17:31:00 Nagel, Holden Whyte Ho spital Ramírez HEMODIALYSIS 2021-06-06 15:05:[facility]SE 2021-06-06 14:03:00 Nagel, Holden Whyte Ho spital Ramírez HC COMPLETE BLD COUNT 2021-06-06 10:31:00 [facility] W/AUTO DIFF BASIC METABOLIC PANEL 2021-06-06 10:31:00 [facility] ESTIMATED GFR 2021-06-06 10:31:00 Holden Nagel Ho spital Ramírez POC GLUCOSE 2021-06-06 10:14:00 Nagel, Holden Whyte Ho spital Ramírez POC GLUCOSE 2021-06-06 06:26:00 Nagel, Holden Whyte Ho spital Ramírez POC GLUCOSE 2021-06-06 02:41:00 NagelHolden rodriguez [facility] spital Ramírez POC GLUCOSE 2021-06-05 19:51:00 NagelHolden rodriguez Ho spital Ramírez BASIC METABOLIC PANEL 2021-06-05 18:06:00 [facility] HC COMPLETE BLD COUNT 2021-06-05 18:06:00 [facility] W/AUTO DIFF ESTIMATED GFR 2021-06-05 18:06:00 Holden Nagel Ho spital Ramírez POC GLUCOSE 2021-06-05 17:48:00 oHlden Nagel Ho spital Ramírez ANAEROBIC CULTURE 2021-06-05 17:10:00 Pati, [facility] ANAEROBIC CULTURE 2021-06-05 16:59:00 Pati, [facility] FUNGUS CULTURE 2021-06-05 16:59:00 Pati, [facility] spital AEROBIC CULTURE 2021-06-05 16:59:00 Pati, [facility] spital AFB CULTURE 2021-06-05 16:59:00 Pati, [facility] spital FUNGUS SMEAR 2021-06-05 16:59:00 Pati, [facility] spital AFB STAIN 2021-06-05 16:59:00 Pati, [facility] spital GA AN ELECTIVE 2021-06-05 16:52:08 Herrera [facility] SUPRAGLOTTIC AIRWAY TISSUE CULTURE 2021-06-05 16:50:00 Pati, [facility] GR[facility] STAIN 2021-06-05 16:50:00 Pati [facility] DEBRIDEMENT, LOWER 2021-06-05 16:16:00 Pati [facility] EXTREMITY POC GLUCOSE 2021-06-05 13:32:00 [facility]el [facility] Ram[facility] TROPONIN T 2021-06-05 10:58:00 [facility] ospital ABO AND RH CONFIRMATION 2021-06-05 10:54:00 [facility] Vipin BASIC METABOLIC PANEL 2021-06-05 10:53:00 [facility] HC COMPLETE BLD COUNT 2021-06-05 10:53:00 [facility] W/AUTO DIFF ESTIMATED GFR 2021-06-05 10:53:00 Sivan Stewart [facility] PROTHROMBIN TIME WITH INR 2021-06-05 10:52:00 [facility] PARTIAL THROMBOPLASTIN 2021-06-05 10:52:00 [facility] TIME (PTT) HCG QUALITATIVE, SERUM 2021-06-05 10:52:00 Myron Fernandes [facility] SCREEN POC GLUCOSE 2021-06-05 09:40:00 Dhaliwal, Carlos [facility] spital Vipin BLOOD CULTURE, AEROBIC & 2021-06-05 08:27:00 Carlos Dhaliwal [facility] ANAEROBIC Vipin POC GLUCOSE 2021-06-05 07:42:00 Calros Dhaliwal Ho spital Vipin POC GLUCOSE 2021-06-05 06:57:00 Carlos Dhaliwal Ho spital Vipin POC GLUCOSE 2021-06-05 06:10:00 NagelHolden Ho spital Ramírez BLOOD CULTURE, AEROBIC & 2021-06-05 04:31:00 Carlos Dhaliwal [facility] ANAEROBIC Vipin POC GLUCOSE 2021-06-05 04:04:00 Carlos Dhaliwal Ho spital Vipin POC GLUCOSE 2021-06-05 03:51:00 Carlos Dhaliwal Ho spital Vipin TYPE AND SCREEN 2021-06-05 03:40:00 Carlos Dhaliwal Ho spital Vipin POC GLUCOSE 2021-06-05 03:05:00 Carlos Dhaliwal Ho spital Vipin POC GLUCOSE 2021-06-05 02:23:00 Carlos Dhaliwal Ho spital Vipin COVID-19 QUALITATIVE 2021-06-05 02:08:00 SamantaSivan [facility] RT-PCR HC COMPLETE BLD COUNT 2021-06-05 01:24:00 SamantaSivan [facility] W/AUTO DIFF PROTHROMBIN TIME WITH INR 2021-06-05 01:24:00 [facility] PARTIAL THROMBOPLASTIN 2021-06-05 01:24:[address] [facility] [address] [facility] TIME (PTT) COMPREHENSIVE METABOLIC 2021-06-05 01:24:00 [facility] PANEL CREATINE KINASE, TOTAL 2021-06-05 01:24:00 [facility] (CPK[facility] B NATRIURETIC PEPTIDE 2021-06-05 01:24:00 [facility] TROPONIN T 2021-06-05 01:24:00 Kacy Viramontesradha [facility] ospital ESTIMATED GFR 2021-06-05 01:24:00 Sivan Stewart [facility] ECG ED PRELIMINARY 2021-06-05 00:31:28 Sivan Stewart [facility] INTERPRETATION ECG 12-LEAD 2021-06-05 00:19:17 Carlos Dhaliwal [facility] marilyn [facility] POC GLUCOSE 2021-05-25 18:04:00 Awe, Marilu Arvin [facility] POC GLUCOSE 2021-05-25 14:00:00 Awe, Marilu Arvin [facility] CBC HEMOGRAM 2021-05-25 10:12:00 Awe, Marilu Arvin [facility] BASIC METABOLIC PANEL 2021-05-25 10:12:00 Awe, [facility] ESTIMATED GFR 2021-05-25 10:12:00 Awe, Marilu Arvin [facility] POC GLUCOSE 2021-05-25 02:49:00 Awe, Marilu Arvin [facility] POC GLUCOSE 2021-05-24 23:33:00 Awe, Marilu Arvin [facility] POC GLUCOSE 2021-05-24 17:56:00 Awe, Marilu Arvin [facility] POC GLUCOSE 2021-05-24 13:59:00 Awe, Marilu Arvin [facility] CBC HEMOGRAM 2021-05-24 10:12:00 Awe, Marilu Arvin [facility] BASIC METABOLIC PANEL 2021-05-24 10:12:00 [facility], [facility] ESTIMATED GFR 2021-05-24 10:12:00 Awe, Marilu Arvin [facility] POC GLUCOSE 2021-05-24 09:59:00 Awe, Marilu Arvin [facility] POC GLUCOSE 2021-05-24 02:26:00 Awe, Marilu Arvin [facility] POC GLUCOSE 2021-05-24 00:03:00 Awe, [facility] TRANSFUSE RED BLOOD CELLS 2021-05-23 22:30:00 [facility] TRANSFUSE RED BLOOD CELLS 2021-05-23 21:30:00 [facility] POC GLUCOSE 2021-05-23 19:03:00 Awe, [facility] TYPE AND SCREEN 2021-05-23 14:38:00 [facility] HC COMPLETE BLD COUNT 2021-05-23 14:38:00 [facility] W/AUTO DIFF PREPARE RBC 2021-05-23 14:38:00 [facility] ospital PREPARE PLATELET PHERESIS 2021-05-23 14:38:00 [facility] POC GLUCOSE 2021-05-23 14:35:00 Awe, [facility] HEMODIALYSIS 2021-05-23 13:42:30 [facility] CBC HEMOGRAM 2021-05-23 12:31:00 Awe, [facility] BASIC METABOLIC PANEL 2021-05-23 12:31:00 Awe, [facility] ESTIMATED GFR 2021-05-23 12:31:00 Awe, [facility] POC GLUCOSE 2021-05-23 11:22:00 Awe, [facility] POC GLUCOSE 2021-05-23 03:30:00 [facility], [facility] 2021-05-22 23:20:00 Awe, [facility] POC GLUCOSE 2021-05-22 17:20:00 Awe, [facility] POC GLUCOSE 2021-05-22 13:27:00 Awe, [facility] BASIC METABOLIC PANEL 2021-05-22 12:31:00 Nikki Haynes [facility] Rahel MAGNESIUM LEVEL 2021-05-22 12:31:00 Nikki Haynes ospigabe Mcginnis CBC HEMOGRAM 2021-05-22 12:31:00 Nikki Haynes ospital Rahel ESTIMATED GFR 2021-05-22 12:31:00 Nikki Haynes ospital Rahel POC GLUCOSE 2021-05-22 10:54:00 Awe, [facility] POC GLUCOSE 2021-05-22 07:28:00 Awe, [facility] POC GLUCOSE 2021-05-22 01:11:00 Awe, [facility] HEPATITIS B SURFACE 2021-05-21 21:08:00 [facility] ANTIBODY HEMODIALYSIS 2021-05-21 20:57:40 [facility] POC GLUCOSE 2021-05-21 17:57:00 Awe, [facility] POC GLUCOSE 2021-05-21 13:55:00 Awe, [facility] POC GLUCOSE 2021-05-21 10:41:00 Kye Barber COVID-19 ANTI-SPIKE IGG 2021-05-21 07:43:00 Clyde Olmstead [facility] ANTIBODY TITER Esa BASIC METABOLIC PANEL 2021-05-21 07:43:00 [facility] Rahel MAGNESIUM LEVEL 2021-05-21 07:43:00 Nikki Haynes ospital Rahel CBC HEMOGRAM 2021-05-21 07:43:00 Nikki Haynes ospigabe Mcginnis COVID-19 SEROLOGY PATIENT 2021-05-21 07:43:00 Clyde Olmstead [facility] SURVEILLANCE Esa ESTIMATED GFR 2021-05-21 07:43:00 Andre Sofia [place] LACTIC ACID LEVEL 2021-05-21 07:43:00 Leodan Stevenson [facility] POC GLUCOSE 2021-05-21 06:35:00 Kye Barber HC COMPLETE BLD COUNT 2021-05-21 02:49:00 [facility] W/AUTO DIFF BASIC METABOLIC PANEL 2021-05-21 02:49:00 [facility] LACTIC ACID LEVEL 2021-05-21 02:49:00 [facility] OSMOLALITY, SERUM 2021-05-21 02:49:00 [facility] BETA HYDROXYBUTYRATE 2021-05-21 02:49:00 [facility] PROCALCITONIN 2021-05-21 02:49:00 [facility] ESTIMATED GFR 2021-05-21 02:49:00 [facility] POC GLUCOSE 2021-05-21 02:34:00 Kye Barber spital HC COMPLETE BLD COUNT 2021-05-21 00:28:00 Char Viramontes [facility] W/AUTO DIFF POC GLUCOSE 2021-05-20 23:57:00 Kye Barber spital BASIC METABOLIC PANEL 2021-05-20 23:20:00 Andre Sofia [facility] LACTIC ACID LEVEL 2021-05-20 23:20:00 Kimberlyn [facility] [place] ESTIMATED GFR 2021-05-20 23:20:00 Andre Sofia spital [place] VENOUS BLOOD GAS 2021-05-20 23:19:00 Andre Sofia ospital [place] POC GLUCOSE 2021-05-20 23:16:00 Kye Barber spital POC GLUCOSE 2021-05-20 22:16:00 Kye Barber spital POC GLUCOSE 2021-05-20 21:37:00 Kye Barber Ho spital POC GLUCOSE 2021-05-20 20:29:00 Kye Barber Ho spital POC GLUCOSE 2021-05-20 20:26:00 Kye Barber spital POC GLUCOSE 2021-05-20 17:49:00 Kye Barber spital POC GLUCOSE 2021-05-20 17:46:00 Kye Barber spital TRANSFUSE RED BLOOD CELLS 2021-05-20 17:21:00 [facility] [place] TRANSFUSE PLATELET 2021-05-20 15:52:00 [facility] PHERESIS BASIC METABOLIC PANEL 2021-05-20 15:25:00 [facility] [place] ESTIMATED GFR 2021-05-20 15:25:00 Andre Sofia spital [place] POC GLUCOSE 2021-05-20 14:48:00 Kye Barber spital HEMODIALYSIS 2021-05-20 11:31:20 [facility] POC GLUCOSE 2021-05-20 10:44:00 Kye Barber spital HEPATITIS B SURFACE 2021-05-20 08:49:00 [facility] ANTIGEN HEPATITIS B SURFACE AB, 2021-05-20 08:49:00 [facility] QUANTITATIVE HC COMPLETE BLD COUNT 2021-05-20 08:25:00 [facility] W/AUTO DIFF BASIC METABOLIC PANEL 2021-05-20 08:25:00 [facility] MAGNESIUM LEVEL 2021-05-20 08:25:00 [facility] ospital PHOSPHORUS LEVEL 2021-05-20 08:25:00 [facility] PROTHROMBIN TIME WITH INR 2021-05-20 08:25:00 Leodan Stevenson [facility] ESTIMATED GFR 2021-05-20 08:25:00 Juwan Krueger spital HEMOGLOBIN A1C 2021-05-20 08:25:00 Nikki Haynes ospital Rahel POC GLUCOSE 2021-05-20 06:34:00 Kye Barber spital ARTERIAL BLOOD GAS 2021-05-20 04:36:00 [facility] 12-LEAD 2021-05-20 03:42:28 [facility] spital PROTHROMBIN TIME WITH INR 2021-05-20 02:54:00 [facility] HC COMPLETE BLD COUNT 2021-05-20 02:54:00 [facility] W[facility]AUTO DIFF BASIC METABOLIC PANEL 2021-05-20 02:54:00 [facility] LACTIC ACID LEVEL 2021-05-20 02:54:00 Graham [facility] VENOUS BLOOD GAS 2021-05-20 02:54:00 [facility] Claudia ospital ESTIMATED GFR 2021-05-20 02:54:00 [facility] spital POC GLUCOSE 2021-05-20 02:54:00 Kye Barber spital XR CHEST 1 VW PORTABLE 2021-05-20 02:51:13 [facility] [place] [facility] 2021-05-20 01:30:15 Juwan Krueger spital TRANSFUSE RED BLOOD CELLS 2021-05-20 00:59:00 Juwan Krueger [facility] GA AN ELECTIVE 2021-05-20 00:53:01 Sukhjinder Medina spital SUPRAGLOTTIC AIRWAY Kendall INCISION AND DRAINAGE, 2021-05-20 00:45:00 Juwan Krueger [facility] HEMATOMA HC COMPLETE BLD COUNT 2021-05-19 22:13:00 [facility] W/AUTO DIFF BASIC METABOLIC PANEL 2021-05-19 22:13:00 [facility] PROTHROMBIN TIME WITH INR 2021-05-19 22:13:00 [facility] PARTIAL THROMBOPLASTIN 2021-05-19 22:13:00 [facility] TIME (PTT) MAGNESIUM LEVEL 2021-05-19 22:13:00 [facility] ospital ESTIMATED GFR 2021-05-19 22:13:00 Juwan Krueger spital POC GLUCOSE 2021-05-19 22:00:00 Errol Luther [facility] SURGICAL PATHOLOGY REQUEST 2021-05-19 21:47:00 Errol Luther [facility] POC GLUCOSE 2021-05-19 21:17:00 Juwan Krueger spital ACTIVATED CLOTTING TIME 2021-05-19 19:12:00 Kye Barber [facility] GA AN ELECTIVE 2021-05-19 18:11:04 Sukhjinder Medina spital SUPRAGLOTTIC AIRWAY Kendall LOWER EXTREMITY 2021-05-19 17:59:00 Juwan Krueger spital ANGIOGRAM,POSSIBLE ANGIOPLASTY,POSSIBLE STENT XR CHEST 1 VW PORTABLE 2021-05-19 15:47:37 Pati [facility] ESTIMATED GFR 2021-05-19 14:34:00 Juwna Krueger spital POC PANEL 2021-05-19 14:34:00 Juwan Krueger spital TYPE AND SCREEN 2021-05-19 14:05:00 Isabell Dickerson rajeshtal Larry Romero PREPARE RBC 2021-05-19 14:05:00 [facility] FRESH FROZEN 2021-05-19 14:05:00 [facility] PLASMA PREPARE PLATELET PHERESIS 2021-05-19 14:05:00 Char Viramontes [facility] BASIC METABOLIC PANEL 2021-05-19 14:00:[facility] Romero PROTHROMBIN TIME WITH INR 2021-05-19 14:00:00 Jayla [facility] Larry Romero HC COMPLETE BLD COUNT 2021-05-19 14:00:00 [facility] W/AUTO DIFF Larry Romero ABO AND RH CONFIRMATION 2021-05-19 14:00:00 Pati [facility] ESTIMATED GFR 2021-05-19 14:00:00 Isabell Dickerson COVID-19 QUALITATIVE 2021-05-19 12:40:00 Pati, Juwan [facility] RT-PCR MEDICAL RELEASE/CLEARANCE 2021-05-13 06:01:00 Doctor Unassigned, [facility] FORMS [facility] US DUPLEX ARTERIAL LOWER 2021-05-12 15:21:31 Juwan Krueger [facility] EXTREMITY BILATERAL Emergency department visit 2013-04-15 05:00:00 [...] procedure) Therapeutic, prophylactic, 2013-04-15 05:00:00 [facility] [place] or diagnostic injection (specify substance or drug); intravenous push, single or initial substance/drug [facility] (esophagogastroduodenoscop y) gastric outlet reduction section Shahid Joseph n Tubal ligation [facility] 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 Plan of Care Planned Activity Planned Date Details Comments Source Future Scheduled 2021-07-22 COVID-19 VACCINE [facility] Test 13:11:04 (1) [code = COVID-19 VACCINE (1)] Future Scheduled 2021-07-22 [facility] Test 13:11:04 screening (procedure) [code = 004600796] Future Scheduled 2021-07-22 [facility] for [facility] Test 13:11:04 malignant neoplasm of cervix (procedure) [code = 214586903] Future Scheduled 2021-07-22 [facility]UENZA [facility]INE [facility] 13:11:04 [code = INFLUENZA VACCINE] Encounters Start End Encounter Admission Attending Care Care Encounter Source Date/Time Date/Time Type Type Clinicians Facility Department ID 2021-07-22 Outpatient nullFlavo [facility] [id number] Memoria 00:10:30 r Medical 05 l [facility] 2021-07-22 Preadmit nullFlavo [id number] Memoria 00:10:[address] [facility] 68 l [place] 2021-07-22 Outpatient nullFlavo [facility] [id number] Memoria 00:10:30 r Medical 06 l [facility] 2021-08-20 2021-08-20 Outpatient [facility] [id number] Devoted 12:30:00 12:30:00 0302 Medica l [facility] 2021-07-08 2021-07-08 Office Ann, 1.2.840.1 [id number] Methodi 12:54:05 14:25:36 Visit Bessie 30056.1.[address] [place] 3.430.2.7 Hosp jo-ann .3.378903 l .8 2021-07-08 2021-07-08 Telephone Anthony, 1.2.840.1 [id number] Methodi 00:00:00 00:00:[address] 3.430.2.7 Hospit a .3.238614 l .8 2021-07-08 2021-07-08 Travel 1.2.840.1 1.2.631.230 [id number] Methodi 00:00:00 00:00:[address] 3.430.2.7 0.2.7.3.698 Ho spita .3.793801 084.8 l .8 2021-07-03 2021-07-03 Telephone Ann, 1.2.840.1 [id number] Methodi 00:00:00 00:00:[address] [place] 3.430.2.7 Hosp jo-ann .3.178053 l .8 2021-06-24 2021-06-24 Outpatient Deshazo_T DMG [facility] [id number] Devoted 05:31:00 05:31:00 0104 Medica l Group 2021-06-23 2021-06-23 Telephone Anthony, 1.2.840.1 [id number] Methodi 00:00:00 00:00:[address] 3.430.2.7 Hospit a .3.014880 l .8 2021-06-04 2021-06-18 Hospital Sivan Stewart 1.2.840.1 [id number] Methodi 18:20:00 18:13:00 Encounter Dhaliwal, Carlos Lew 38815.1.[address] [facility], Holden Ortizra 3.430.2.7 Hospita Shanda Mckenzie Kalen .3.089418 l Aurelio Schumacher .8 2021-06-16 2021-06-16 Anesthesia Yousif, 1.2.840.1 [id number] Methodi 23:59:59 23:59:59 Event Alesia Coelho 24767.1.[address] 3.430.2.7 Hospit a .3.741531 l .8 2021-06-16 2021-06-16 Surgery Diaz, 1.2.840.1 [id number] Methodi 13:30:00 17:45:[address] [facility] 3.430.2.7 Hosp jo-ann .3.222457 l .8 2021-06-16 2021-06-16 Anesthesia Jose Carlos, 1.2.840.1 [id number] Methodi 15:19:00 17:19:00 Event Sethlachelleayo 44896.1.1 309 s t V. 3.430.2.7 Hospit a .3.065780 l .8 2021-06-10 2021-06-10 Surgery PatiJuwan 1.2.840.1 [id number] Methodi 08:00:00 10:30:[address] 3.430.2.7 Hospit a .3.692518 l .8 2021-06-10 2021-06-10 Anesthesia Doc, 1.2.840.1 [id number] Methodi 08:26:00 09:40:00 Event Sofi 06131.1.[address] Marquita 3.430.2.7 Hosp jo-ann .3.627721 l .8 2021-06-09 2021-06-09 Prep for Robert, 1.2.840.1 [id number] Methodi 00:00:00 00:00:00 Surgery Gayle 87963.1.[address] 3.430.2.7 Hospit a .3.884997 l .8 2021-06-09 2021-06-09 Prep for Robert, 1.2.840.1 [id number] Methodi 00:00:00 00:00:00 Surgery Gayle 58876.1.[address] 3.430.2.7 Hospit a .3.553989 l .8 2021-06-05 2021-06-05 Anesthesia Frankie Chowdhury 1.2.840.1 [id number] Methodi 10:16:00 11:41:00 Event Chandler Silverman 71034.1.[address] 3.430.2.7 Hospit a .3.800079 l .8 2021-06-05 2021-06-05 Surgery PatiJuwan 1.2.840.1 [id number] Methodi 09:30:00 11:05:[address] 3.430.2.7 Hospit a .3.884854 l .8 2021-06-03 2021-06-03 Prep for Anthony, 1.2.840.1 [id number] Methodi 00:00:00 00:00:00 Surgery Forrest 83722.1.[address] 3.430.2.7 Hospit a .3.853693 l .8 2021-06-03 2021-06-03 Telephone Adelita, 1.2.840.1 [id number] Methodi 00:00:00 00:00:00 Crysandria 05350.1.1 218 s t 3.430.2.7 Hospit a .3.583453 l .8 2021-05-28 2021-05-28 Outpatient Adams_R DMG [facility] [id number] Devoted 05:00:00 05:00:00 1208 Medica l Group 2021-05-27 2021-05-27 Patient Tam, 1.2.840.1 [id number] Methodi 00:00:00 00:00:00 Outreach Maria M [address]679.1.[address] 3.430.2.7 Hospit a .3.460024 l .8 2021-05-27 2021-05-27 Travel 1.2.840.1 1.2.291.538 [id number] Methodi 00:00:00 00:00:[address] 3.430.2.7 0.2.7.3.698 Ho spita .3.895199 084.8 l .8 2021-05-27 2021-05-27 Orders Ramana, 1.2.840.1 [id number] Methodi 00:00:00 00:00:00 Only Anila 14669.1.[address] 3.430.2.7 Hospit a .3.622206 l .8 2021-05-26 2021-05-26 Outpatient Adams_R DMG G 26957-8 021 [facility] 03:30:00 03:30:00 1206 [facility] 2021-05-26 2021-05-26 Telephone Anthony, 1.2.840.1 [id number] 2099 152424 Methodi 00:00:00 00:00:[address] 3.430.2.7 Hospit a .3.554414 l .8 2021-05-19 2021-05-25 Hospital Juwan Krueger 1.2.840.1 [id number] 2099 039346 Methodi 06:00:00 15:59:00 Encounter Kye Barber 49679.1.[address] Marilu [place] 3.430.2.7 Hospita .3.499511 l .8 2021-05-21 2021-05-21 [place] [address]-8 021 [facility] 03:30:00 03:30:00 1201 Medica l Group 2021-05-19 2021-05-19 Anesthesia Adam, 1.2.840.1 [id number] Methodi 18:45:00 20:31:00 Event Sukhjinder 22555.1.[address] [place] 3.430.2.7 Hospit a .3.177338 l .8 2021-05-19 2021-05-19 Surgery Juwan Krueger 1.2.840.1 [id number] 91 Methodi 18:50:00 19:55:[address] 3.430.2.7 Hospit a .3.974008 l .8 2021-05-19 2021-05-19 Anesthesia Sukhjinder Medina 1.2.840.1 [id number] Methodi 12:00:00 15:14:00 Event Hanane Ledezma 23482.1.[address] 3.430.2.7 Hospit a .3.782749 l .8 2021-05-19 2021-05-19 Surgery Juwan Krueger 1.2.840.1 [id number] 06059 Methodi 12:05:00 14:45:[address] 3.430.2.7 Hospit a .3.646753 l .8 2021-05-19 2021-05-19 Travel 1.2.840.1 1.2.191.596 1323 179478 Methodi 00:00:00 00:00:[address] 3.430.2.7 0.2.7.3.698 Ho spita .3.688515 084.8 l .8 2021-05-14 2021-05-14 Telephone Corin 1.2.840.1 [id number] Methodi 00:00:00 00:00:[address] 3.430.2.7 Hospit a .3.385401 l .8 2021-05-14 2021-05-14 Prep for Anthony, 1.2.840.1 [id number] Methodi 00:00:00 00:00:00 Surgery Forrest 00018.1.[address] 3.430.2.7 Hospit a .3.855525 l .8 2021-05-13 2021-05-13 Orders Doctor JOANNA 1.2.840.114 [id number] Univers 00:00:00 00:00:00 Only Unassigned, MAGDALENO 350.1.13.10 ity of [place] [facility] 4.2.7.2.686 Baljinder as [phone] [address] 2021-05-12 2021-05-12 Office PatiJuwan 1.2.840.1 [id number] Methodi 09:02:46 09:32:[address] 3.430.2.7 Hospit a .3.707036 l .8 2021-05-12 2021-05-12 Telephone Anthony, 1.2.840.1 [id number] [id number] Methodi 00:00:00 00:00:[address] 3.430.2.7 Hospit a .3.918287 l .8 2021-05-12 2021-05-12 Travel 1.2.840.1 1.2.450.840 0430 907219 Methodi 00:00:00 00:00:[address] 3.430.2.7 0.2.7.3.698 Ho spita .3.152635 084.8 l .8 2021-05-08 2021-05-08 Orders Anthony, 1.2.840.1 [id number] Methodi 00:00:00 00:00:00 Only Forrest 37841.1.[address] 3.430.2.7 Hospit a .3.918336 l .8 2021-05-08 2021-05-08 Telephone Ramana, 1.2.840.1 [id number] Methodi 00:00:00 00:00:[address] 3.430.2.7 Hospit a .3.940060 l .8 2021-05-05 2021-05-05 Office Juwan Krueger 1.2.840.1 [id number] 86699 Methodi 14:18:48 15:41:[address] 3.430.2.7 Hospit a .3.818120 l .8 2021-05-05 2021-05-05 Travel 1.2.840.1 1.2.243.565 5321 [id number] Methodi 00:00:00 00:00:[address] 3.430.2.7 0.2.7.3.698 Ho spita .3.312779 084.8 l .8 2021-05-01 2021-05-01 Telephone Diaz, 1.2.840.1 [id number] 2099 [id number] Methodi 00:00:00 00:00:[address] [facility] 3.430.2.7 Hosp jo-ann .3.236909 l .8 2021-03-21 2021-03-21 Outpatient DMG DREWG 13051-5 021 [facility] 08:01:00 08:01:00 1001 [facility] 2021-01-21 2021-01-29 Inpatient [facility] [id number] [facility] 15:50:00 20:14:[address] 2021-01-21 2021-01-29 Inpatient U AYDEE, [facility] 7512 [facility] 10:50:00 15:14:00 AKUA 2021-01-24 2021-01-24 Outpatient DMG DREWG [id number] 021 [facility] 08:00:00 08:00:00 0806 Medica l Group 2021-01-03 2021-01-03 Office DOMINIQUE Diane 1.2.840.114 [id number] [facility] 07:44:43 09:30:54 Visit Alexandr ALTMAN 350.1.13.58 H [facility] MEDICAL 9.2.7.2.686 [facility] [phone] 1 2021-01-03 2021-01-03 Office DOMINIQUE Diane 1.2.840.114 [id number] 07:44:43 09:30:54 Visit Alexandr ALTMAN 350.1.13.58 MEDICAL 9.2.7.2.686 [facility] [phone] 1 2020-12-24 2020-12-25 Outpatient nullFlavo [facility] [id number] Memoria 15:32:00 04:59:00 r Disease 11 l Center [place] 2020-12-24 2020-12-24 Outpatient PHILIPPE, [facility] 7511 [facility] 10:32:00 23:59:00 HUI 2020-10-27 2020-10-27 Letter Lamin [facility] 1.2.840.114 [id number] 00:00:00 00:00:00 (Out) Oz Lehman 350.1.13.10 [place] 4.2.7.2.686 Professio [phone] nal 059 [facility] 2020-10-24 2020-10-24 Orders Doctor JOANNA 1.2.840.114 [id number] 00:00:00 00:00:00 Only Unassigned, MAGDALENO 350.1.13.10 [place] [facility] 4.2.7.2.686 [id number] 009 2020-09-24 2020-09-24 Refill Carlos [facility] 1.2.840.114 [id number] 00:00:00 00:00:00 Jose Luis Lehman 350.1.13.10 [place] 4.2.7.2.686 Professio [phone] nal 220 [facility] 2020-09-09 2020-09-09 Patient Daniel [facility] 1.2.840.114 [id number] 00:00:00 00:00:00 Outreach Earl SMITH 350.1.13.10 Manuel [facility] 4.2.7.2.686 ANNABEL [id number] 2020-07-23 2020-07-23 Office Black [facility] 1.2.574.285 [id number] [id number] 13:31:20 14:37:36 Visit Deja PRIMARY 350.1.13.10 A CARE 4.2.7.2.686 PAVHARISHON [id number] 198 2020-06-27 2020-06-27 Office Lamin [facility] 1.2.840.114 [id number] Univers 10:05:43 11:00:00 Visit Oz LEHMAN 350.1.13.10 itcaron [facility] 4.2.7.2.686 Amisha lombardo DAVIS [phone] Ga dical NAL 059 [facility] [facility] 2020-06-27 2020-06-27 Outpatient R LAMIN [facility] [id number] Univers 09:30:00 11:00:00 SENDIL ity [facility] 2020-01-25 2020-01-31 Inpatient 1 ChivoJose husseinRei [facility] [id number] 21:31:00 18:15:00 Rei Waldron [facility] 2016-07-24 2016-07-30 Inpatient [facility] [id number] Memoria 02:04:00 16:20:[address] 2016-06-10 2016-06-15 Inpatient [facility] [id number] Memoria 16:02:00 18:23:[address] 2014-06-26 2014-06-26 EC [facility] [id number] Memoria 05:25:00 15:14:00 Emergency r [place] 08 [facility] 2013-04-14 2013-04-15 Emergency nullFlavo [id number] Memoria 21:04:00 01:45:[address] 2012-03-14 2012-03-14 Emergency nullFlavo [id number] [facility] 16:32:00 22:39:[address] 2011-11-28 2011-11-30 OU nullFlavo [facility] [id number] Memoria 12:16:00 20:40:[address] 2011-09-18 2011-09-18 Emergency nullFlavo [facility] [id number] Memoria 08:23:00 13:34:00 r [facility] 02 [facility] 2011-09-01 2011-09-09 Inpatient nullFlavo [facility] [id number] 67350 Memoria 01:40:00 15:00:00 [facility] 2011-08-19 2011-08-23 Inpatient nullFlavo [facility] 72768 52969 Memoria 14:25:00 15:28:00 [facility] Results Test Description Test Time Test Comments Results Result Comments Source AFB culture 2021-07-22 18:13:19 Test Item Value Reference Range Interpretation Comme nts AFB culture isolate No growth after 6 weeks of Specimen InformationSpecimen (test code = 543-9) incubation. Source: DrainageSpecimen Site: Thigh: infected wound right thigh [facility] kjjqlbq1258-73-23 18:15:13 Test Item Value Reference Range Interpretation Comments Fungus culture No growth Specimen isolate (test after 4 weeks InformationSp ecimen code = 1441) of Source: TissueS pecimen incubation. Site: Thigh [facility] Center[facility] fxrvtqv3697-63-67 14:31:13 Test Item Value Reference Range Interpretation Comments Anaerobic No anaerobic Specimen culture isolate organisms InformationS pecimen (test code = isolated. Source: TissueS pecimen 552) [facility] l[facility] 16:51:58 Test Item Value Reference Range Interpretation Comments Gram stain No WBC's or Specimen isolate (test organisms seen. Information Specimen code = 1469) Source: TissueS pecimen [facility]: [facility] mojlxcs0706-67-47 16:51:58 Test Item Value Reference Range Interpretation Comments Aerobic culture No growth Specimen isolate (test after 3 days. InformationSp ecimen code = 498) Source: TissueS pecimen [facility]: [facility] zckes6745-44-79 16:51:58 Test Item Value Reference Range Interpretation Comments Fungus smear No fungi Specimen (test code = observed. InformationSpec imen Source: 1443) TissueSpecimen Site: [facility] nedkraf0706-16-43 17:00:57 Test Item Value Reference Range Interpretation Comments POC glucose (test code 79 mg/dL 65-99 Opera tor Name: Eboni = 15078-8) AmiDevice ID: [id number] [facility] , [id number] 20:46:00 Test Item Value Reference Range Interpretation Comments test urine, POC (test Negative code = 8793499) Internal QC (test code = 257) QC acceptable [facility] 12 bpda7469-97-72 17:27:33 Test Item Value Reference Range Interpretation Comments Ventricular rate (test code = 253) Atrial rate (test code = 255) GA interval (test code = 266) QRSD interval [...] of 04-JUN-2021 18:19,-No significant change was found- [facility] and [id number] 11:06:00 Test Item Value Reference Range Interpretation Comments ABO grouping (test code = 883-9) B Rh type (test code = 72110-0) POS Antibody screen (gel) (test code = NEG 890-4) [facility] CenterT[facility] nzxjqwv0351-57-19 20:18:46 Test Item Value Reference Range Interpretation Comments Tissue culture No growth Specimen isolate (test after 3 days. InformationSp ecimen code = 43358-3) Source: Tiss ueSpecimen Site: Thigh: in fected right thigh wou nd [facility] CenterAF[facility] [id number] 20:24:42 Test Item Value Reference Range Interpretation Comments AFB stain No acid fast Specimen (test code = bacilli (AFB) InformationSpe cimen 676-7) seen. Source: Drainag eSpecimen Site: Thigh: in fected wound right th igh [facility] CenterU[facility] vjmvcck9273-72-09 09:49:57 Test Item Value Reference Range Interpretation Comments Urine culture No growth Specimen isolate (test after 24 InformationSpe cimen code = 82515-0) hours Source: Urin eSpecimen Site: Clean cat ch [facility] CenterABO and Rh avpkxcxqimnc4853-73-27 12:52:00 Test Item Value Reference Range Interpretation Comments ABO grouping (test code = 883-9) B Rh type (test code = 61332-2) POS [facility] CenterPrepare RBC, 1 [id number] 22:22:00 Test Item Value Reference Range Interpretation Comments Product name (test code Red Blood Cells -1, = 25) Leukored Unit number (test code = [id number]) Product code (test code P0499E79 = 3092) Dispense status (test Transfused code = 24) Blood expiration date (test code = 302) Blood type code (test code = 308) Blood type (test code = B POSITIVE 1314) Compatibility (test code Compatible = 6400) [facility] jyqjaob3744-89-18 20:10:46 Test Item Value Reference Range Interpretation Comments Case number (test code = [id number]) Surgical pathology See link below for report (test code = PDF Lab Report 5486) Result status (test code This is Final Report = [id number]) for [id number] [facility] Center[facility]par platelet pheresis, 1 [id number] 15:35:00 Test Item Value Reference Range Interpretation Comments Product name (test code Bogdan Fraire LR, Path = 25) Red cont3 Unit number (test code = [id number]) Product code (test code M1704K28 = 3092) Dispense status (test Transfused code = 24) Blood expiration date (test code = 302) Blood type code (test code = 308) Blood type (test code = O POSITIVE 1314) Compatibility (test code Not required = 6400) [facility] CenterActivated clotting wqig2650-73-89 12:13:24 Test Item Value Reference Range Interpretation Comments Activated clotting time See_Comment H Oper ator Name: (test code = 5298) Bryn Morales ID: [id number] [Automated mess age] The system Bocom generated this result transmitted ref erence range: 96 - 152 sec. The reference r leo was not used to interpret this result as normal/abnor mal. Lab Interpretation (test Abnormal code = 49746-6) [facility] [id number] 14:37:48 Test Item Value Reference Range Interpretation Comments POC sodium (test code = 138 mmol/L 879-557 7086-0) POC potassium (test 5.5 mmol/L 3.5-5.0 H code = 6298-4) POC glucose (test code 295 mg/dL 65-99 H = 2339-0) POC creatinine (test 5.3 mg/dl 0.5-0.9 H Operato r Name: Pat code = 56561-8) [place] ID: [id number] POC hemoglobin (test 18.4 g/dL 12.0-16.0 H code = 718-7) POC hematocrit (test 54 % 37-47 H code = 4544-3) Lab Interpretation Abnormal (test code = 39640-5) [facility]2021-08-11 08:17:00 Test Item Value Reference Range Interpretation Comments Glucose Lvl (test code = Glucose Lvl) 94 70-99 [place] 375491-08-11 08:17:00 Test Item Value Reference Range Interpretation Comments BUN (test code = BUN) 27 7-22 [place] 375491-08-11 08:17:00 Test Item Value Reference Range Interpretation Comments Creatinine Lvl (test code = Creatinine 4.95 0.50-1.40 Lvl) [place] 375491-08-11 08:17:00 Test Item Value Reference Range Interpretation Comments Sodium Lvl (test code = Sodium Lvl) 136 135-145 [place] 375491-08-11 08:17:00 Test Item Value Reference Range Interpretation Comments Potassium Lvl (test code = Potassium 3.9 3.5-5.1 Lvl) [place] 375491-08-11 08:17:00 Test Item Value Reference Range Interpretation Comments Chloride Lvl (test code = Chloride Lvl) 103 95-109 [place] 375491-08-11 08:17:00 Test Item Value Reference Range Interpretation Comments CO2 (test code = CO2) 30 24-32 [place] 375491-08-11 08:17:00 Test Item Value Reference Range Interpretation Comments AGAP (test code = AGAP) 6.9 10.0-20.0 [place] 375491-08-11 08:17:00 Test Item Value Reference Range Interpretation Comments Calcium Lvl (test code = Calcium Lvl) 8.5 8.5-10.5 [place] 375491-08-11 08:17:00 Test Item Value Reference Range Interpretation Comments eGFR (test code = eGFR) 10 [facility]2021-08-11 08:17:00 Test Item Value Reference Range Interpretation Comments Phosphorus (test code = Phosphorus) 3.0 2.5-4.5 [facility]2021-08-11 08:17:00 Test Item Value Reference Range Interpretation Comments Magnesium Lvl (test code = Magnesium 2.4 1.8-2.4 Lvl) [place] 453831-08-11 08:17:00 Test Item Value Reference Range Interpretation Comments WBC (test code = WBC) 2.3 3.7-10.4 [place] 453831-08-11 08:17:00 Test Item Value Reference Range Interpretation Comments RBC (test code = RBC) 2.65 4.20-5.40 [place] 453831-08-11 08:17:00 Test Item Value Reference Range Interpretation Comments Hgb (test code = Hgb) 7.9 12.0-16.0 [place] 453831-08-11 08:17:00 Test Item Value Reference Range Interpretation Comments Hct (test code = Hct) 24.0 36.0-48.0 [place] 453831-08-11 08:17:00 Test Item Value Reference Range Interpretation Comments MCV (test code = MCV) 90.6 80.0-98.0 [place] 453831-08-11 08:17:00 Test Item Value Reference Range Interpretation Comments MCH (test code = MCH) 29.7 pg 27.0-31.0 [place] 453831-08-11 08:17:00 Test Item Value Reference Range Interpretation Comments MCHC (test code = MCHC) 32.7 32.0-36.0 [place] 453831-08-11 08:17:00 Test Item Value Reference Range Interpretation Comments RDW (test code = RDW) 19.1 11.5-14.5 [place] 453831-08-11 08:17:00 Test Item Value Reference Range Interpretation Comments Platelet (test code = Platelet) 71 133-450 [facility] CenterUsjkbskRITMONANZM7888-70-49 08:17:00 Test Item Value Reference Range Interpretation Comments MPV (test code = MPV) 9.9 7.4-10.4 [place] 453831-08-11 08:17:00 Test Item Value Reference Range Interpretation Comments Segs (test code = Segs) 56.1 45.0-75.0 [place] 453831-08-11 08:17:00 Test Item Value Reference Range Interpretation Comments Lymphocytes (test code = Lymphocytes) 28.9 20.0-40.0 [place] 453831-08-11 08:17:00 Test Item Value Reference Range Interpretation Comments Monocytes (test code = Monocytes) 8.1 2.0-12.0 [place] 453831-08-11 08:17:00 Test Item Value Reference Range Interpretation Comments Eosinophils (test code = 5.9 See_Comment [A utomated message] The Eosinophils) system which ge nerated this result tra nsmitted reference range : <=4.0. The reference r leo was not used to int erpret this result as normal/abnormal . [facility] CenterMmxifdnUWNZFQNRXM0896-99-62 08:17:00 Test Item Value Reference Range Interpretation Comments Basophils (test code = 1.0 See_Comment [Aut omated message] The Basophils) system which ge nerated this result tra nsmitted reference range : <=1.0. The reference r leo was not used to int erpret this result as normal/abnormal . [place] 453831-08-11 08:17:00 Test Item Value Reference Range Interpretation Comments Neutrophils # (test code = Neutrophils 1.3 1.5-8.1 #) [place] 453831-08-11 08:17:00 Test Item Value Reference Range Interpretation Comments Lymphocytes # (test code = Lymphocytes 0.7 1.0-5.5 #) [place] 453831-08-11 08:17:00 Test Item Value Reference Range Interpretation Comments Monocytes # (test code 0.2 See_Comment [Aut omated message] The = Monocytes #) system which generated this result tra nsmitted reference range : <=0.8. The reference r leo was not used to int erpret this result as normal/abnormal . [place] 453831-08-11 08:17:00 Test Item Value Reference Range Interpretation Comments Eosinophils # (test code 0.1 See_Comment [A utomated message] The = Eosinophils #) system whic h generated this result tra nsmitted reference range : <=0.5. The reference r leo was not used to int erpret this result as normal/abnormal . [facility]2021-08-10 09:30:00 Test Item Value Reference Range Interpretation Comments Glucose Lvl (test code = Glucose Lvl) 61 70-99 [place] 375491-08-10 09:30:00 Test Item Value Reference Range Interpretation Comments BUN (test code = BUN) 13 7-22 [place] 375491-08-10 09:30:00 Test Item Value Reference Range Interpretation Comments Creatinine Lvl (test code = Creatinine 3.71 0.50-1.40 Lvl) [place] 375491-08-10 09:30:00 Test Item Value Reference Range Interpretation Comments Sodium Lvl (test code = Sodium Lvl) 136 135-145 [place] 375491-08-10 09:30:00 Test Item Value Reference Range Interpretation Comments Potassium Lvl (test code = Potassium 4.3 3.5-5.1 Lvl) [facility]2021-08-10 09:30:00 Test Item Value Reference Range Interpretation Comments Chloride Lvl (test code = Chloride Lvl) 103 95-109 [place] 375491-08-10 09:30:00 Test Item Value Reference Range Interpretation Comments CO2 (test code = CO2) 27 24-32 [place] 375491-08-10 09:30:00 Test Item Value Reference Range Interpretation Comments Calcium Lvl (test code = Calcium Lvl) 7.9 8.5-10.5 [place] 375491-08-10 09:30:00 Test Item Value Reference Range Interpretation Comments AGAP (test code = AGAP) 10.3 10.0-20.0 [facility] [id number] 09:30:00 Test Item Value Reference Range Interpretation Comments eGFR (test code = eGFR) 15 [place] 375491-08-10 09:30:00 Test Item Value Reference Range Interpretation Comments Magnesium Lvl (test code = Magnesium 2.3 1.8-2.4 Lvl) [place] 375491-08-10 09:30:00 Test Item Value Reference Range Interpretation Comments Phosphorus (test code = Phosphorus) 3.1 2.5-4.5 [facility] CenterZqwulfhJFADWOQZCZ3000-32-55 09:30:00 Test Item Value Reference Range Interpretation Comments Segs (test code = Segs) 61.5 45.0-75.0 [facility] CenterIlgqkpxKEMSHJSFMG8323-14-64 09:30:00 Test Item Value Reference Range Interpretation Comments Lymphocytes (test code = Lymphocytes) 24.6 20.0-40.0 [facility] CenterXmsbvwrGFVKBAOAXH2838-17-68 09:30:00 Test Item Value Reference Range Interpretation Comments Monocytes (test code = Monocytes) 7.4 2.0-12.0 [facility] CenterLkjxnbgWLAVVIZRED1573-06-17 09:30:00 Test Item Value Reference Range Interpretation Comments Eosinophils (test code = 5.5 See_Comment [A utomated message] The Eosinophils) system which ge nerated this result tra nsmitted reference range : <=4.0. The reference r leo was not used to int erpret this result as normal/abnormal . [facility] CenterRgqyjwcYSIXMLCQHT7694-28-01 09:30:00 Test Item Value Reference Range Interpretation Comments Basophils (test code = 1.0 See_Comment [Aut omated message] The Basophils) system which ge nerated this result tra nsmitted reference range : <=1.0. The reference r leo was not used to int erpret this result as normal/abnormal . [facility] CenterHwxmgzfMSFEUMUSBX6073-55-34 09:30:00 Test Item Value Reference Range Interpretation Comments Neutrophils # (test code = Neutrophils 1.6 1.5-8.1 #) [facility] CenterFemthqrUYRUPDDFPA4418-22-16 09:30:00 Test Item Value Reference Range Interpretation Comments Lymphocytes # (test code = Lymphocytes 0.6 1.0-5.5 #) [facility] CenterTdpyrbzOXFHAWQWFW7457-89-41 09:30:00 Test Item Value Reference Range Interpretation Comments Monocytes # (test code 0.2 See_Comment [Aut omated message] The = Monocytes #) system which generated this result tra nsmitted reference range : <=0.8. The reference r leo was not used to int erpret this result as normal/abnormal . [facility] CenterFfwpvpkGUWVNOEKPE9028-72-66 09:30:00 Test Item Value Reference Range Interpretation Comments Eosinophils # (test code 0.1 See_Comment [A utomated message] The = Eosinophils #) system Bocom generated this result tra nsmitted reference range : <=0.5. The reference r leo was not used to int erpret this result as normal/abnormal . [facility] CenterNnyonzyZLYQLWKJKI6029-20-31 09:30:00 Test Item Value Reference Range Interpretation [...] studies, if clinically indicated, are recommended. CPT: 18590 [facility] CenterAfkkjgoPIYGWKJGRF4949-41-97 09:30:00 Test Item Value Reference Range Interpretation Comments WBC (test code = WBC) 2.5 3.7-10.4 [place] [address]158-08-10 09:30:00 Test Item Value Reference Range Interpretation Comments RBC (test code = RBC) 2.68 4.20-5.40 [place] 453831-08-10 09:30:00 Test Item Value Reference Range Interpretation Comments Hgb (test code = Hgb) 8.2 12.0-16.0 [place] 32[address]-08-10 09:30:00 Test Item Value Reference Range Interpretation Comments Hct (test code = Hct) 24.3 36.0-48.0 [place] [address]-08-10 09:30:00 Test Item Value Reference Range Interpretation Comments MCV (test code = MCV) 90.9 80.0-98.0 [place] [address]-08-10 09:30:00 Test Item Value Reference Range Interpretation Comments MCH (test code = MCH) 30.5 pg 27.0-31.0 [place] [address]-08-10 09:30:00 Test Item Value Reference Range Interpretation Comments MCHC (test code = MCHC) 33.6 32.0-36.0 [place] [address]-08-10 09:30:00 Test Item Value Reference Range Interpretation Comments RDW (test code = RDW) 19.4 11.5-14.5 [facility] CenterLockfmgXLWUVLWKIQ1044-03-96 09:30:00 Test Item Value Reference Range Interpretation Comments Platelet (test code = Platelet) 70 133-450 [place] 453831-08-10 09:30:00 Test Item Value Reference Range Interpretation Comments MPV (test code = MPV) 10.7 7.4-10.4 [place] 375491-08-09 05:10:00 Test Item Value Reference Range Interpretation Comments Glucose Lvl (test code = Glucose Lvl) 69 70-99 [place] 375491-08-09 05:10:00 Test Item Value Reference Range Interpretation Comments BUN (test code = BUN) 29 7-22 [facility]2021-08-09 05:10:00 Test Item Value Reference Range Interpretation Comments Creatinine Lvl (test code = Creatinine 5.14 0.50-1.40 Lvl) [facility]2021-08-09 05:10:00 Test Item Value Reference Range Interpretation Comments Sodium Lvl (test code = Sodium Lvl) 134 135-145 [facility]2021-08-09 05:10:00 Test Item Value Reference Range Interpretation Comments Potassium Lvl (test code = Potassium 5.1 3.5-5.1 Lvl) [facility]2021-08-09 05:10:00 Test Item Value Reference Range Interpretation Comments Chloride Lvl (test code = Chloride Lvl) 98 95-109 [facility]2021-08-09 05:10:00 Test Item Value Reference Range Interpretation Comments CO2 (test code = CO2) 29 24-32 [place] 375491-08-09 05:10:00 Test Item Value Reference Range Interpretation Comments Calcium Lvl (test code = Calcium Lvl) 7.6 8.5-10.5 [facility]2021-08-09 05:10:00 Test Item Value Reference Range Interpretation Comments AGAP (test code = AGAP) 12.1 10.0-20.0 [place] 375491-08-09 05:10:00 Test Item Value Reference Range Interpretation Comments eGFR (test code = eGFR) 10 [place] 375491-08-09 05:10:00 Test Item Value Reference Range Interpretation Comments Magnesium Lvl (test code = Magnesium 2.3 1.8-2.4 Lvl) [facility]2021-08-09 05:10:00 Test Item Value Reference Range Interpretation Comments Phosphorus (test code = Phosphorus) 5.0 2.5-4.5 [place] 453831-08-09 05:10:00 Test Item Value Reference Range Interpretation Comments WBC (test code = WBC) 2.7 3.7-10.4 [place] 453831-08-09 05:10:00 Test Item Value Reference Range Interpretation Comments RBC (test code = RBC) 2.80 4.20-5.40 [place] 453831-08-09 05:10:00 Test Item Value Reference Range Interpretation Comments Hgb (test code = Hgb) 8.5 12.0-16.0 [place] 453831-08-09 05:10:00 Test Item Value Reference Range Interpretation Comments Hct (test code = Hct) 25.7 36.0-48.0 [facility]UxynwtxZZMXIDVHUF0471-92-51 05:10:00 Test Item Value Reference Range Interpretation Comments MCV (test code = MCV) 91.7 80.0-98.0 [place] 453831-08-09 05:10:00 Test Item Value Reference Range Interpretation Comments MCH (test code = MCH) 30.4 pg 27.0-31.0 [place] 453831-08-09 05:10:00 Test Item Value Reference Range Interpretation Comments MCHC (test code = MCHC) 33.1 32.0-36.0 [place] 453831-08-09 05:10:00 Test Item Value Reference Range Interpretation Comments RDW (test code = RDW) 19.2 11.5-14.5 [place] 453831-08-09 05:10:00 Test Item Value Reference Range Interpretation Comments Platelet (test code = Platelet) 72 133-450 [facility] CenterSlagmitYWFZUBUPVQ6590-87-51 05:10:00 Test Item Value Reference Range Interpretation Comments MPV (test code = MPV) 9.9 7.4-10.4 [place] 453831-08-09 05:10:00 Test Item Value Reference Range Interpretation Comments Segs (test code = Segs) 72.6 45.0-75.0 [facility] CenterTmummupQHLRZCLCXI7425-12-30 05:10:00 Test Item Value Reference Range Interpretation Comments Lymphocytes (test code = Lymphocytes) 15.9 20.0-40.0 [place] 453831-08-09 05:10:00 Test Item Value Reference Range Interpretation Comments Monocytes (test code = Monocytes) 7.3 2.0-12.0 [facility] CenterJdlltboQIBPOXGGFL7655-43-19 05:10:00 Test Item Value Reference Range Interpretation Comments Eosinophils (test code = 3.4 See_Comment [A utomated message] The Eosinophils) system which ge nerated this result tra nsmitted reference range : <=4.0. The reference r leo was not used to int erpret this result as normal/abnormal . [place] 453831-08-09 05:10:00 Test Item Value Reference Range Interpretation Comments Basophils (test code = 0.8 See_Comment [Aut omated message] The Basophils) system which ge nerated this result tra nsmitted reference range : <=1.0. The reference r leo was not used to int erpret this result as normal/abnormal . [facility] CenterWjylgmvZNPSAONNEP9860-43-63 05:10:00 Test Item Value Reference Range Interpretation Comments Neutrophils # (test code = Neutrophils 1.9 1.5-8.1 #) [facility] CenterZxtqqrhLFVSWCAAAM8088-83-01 05:10:00 Test Item Value Reference Range Interpretation Comments Lymphocytes # (test code = Lymphocytes 0.4 1.0-5.5 #) [facility] CenterXxdkbfeMYPFZCZZBE5101-96-28 05:10:00 Test Item Value Reference Range Interpretation Comments Monocytes # (test code 0.2 See_Comment [Aut omated message] The = Monocytes #) system which generated this result tra nsmitted reference range : <=0.8. The reference r leo was not used to int erpret this result as normal/abnormal . [facility] CenterYwnualvGLVOTJEDYV3337-46-96 05:10:00 Test Item Value Reference Range Interpretation Comments Eosinophils # (test code 0.1 See_Comment [A utomated message] The = Eosinophils #) system wh h generated this result tra nsmitted reference range : <=0.5. The reference r leo was not used to int erpret this result as normal/abnormal . [facility]2021-08-09 05:10:00 Test Item Value Reference Range Interpretation Comments Ca Ion WB (test code = Ca Ion WB) 1.10 1.05-1.25 [facility]2021-08-09 05:10:00 Test Item Value Reference Range Interpretation Comments Ca Norm WB (test code = Ca Norm WB) 1.06 1.05-1.25 [facility] VQSKBPDHBD4679-34-88 18:36:00 Test Item Value Reference Range Interpretation Comments C difficile DNA (test Negative (01/26/21 1:36 code = C difficile DNA) PM) [facility]2021-08-08 07:33:00 Test Item Value Reference Range Interpretation Comments Ca Ion WB (test code = Ca Ion WB) 1.12 1.05-1.25 [facility]2021-08-08 07:33:00 Test Item Value Reference Range Interpretation Comments Ca Norm WB (test code = Ca Norm WB) 1.07 1.05-1.25 [facility]2021-08-08 07:30:00 Test Item Value Reference Range Interpretation Comments Glucose Lvl (test code = Glucose Lvl) 65 70-99 [facility]2021-08-08 07:30:00 Test Item Value Reference Range Interpretation Comments BUN (test code = BUN) 21 7-22 [facility]2021-08-08 07:30:00 Test Item Value Reference Range Interpretation Comments Creatinine Lvl (test code = Creatinine 4.18 0.50-1.40 Lvl) [facility]2021-08-08 07:30:00 Test Item Value Reference Range Interpretation Comments Sodium Lvl (test code = Sodium Lvl) 136 135-145 [facility]2021-08-08 07:30:00 Test Item Value Reference Range Interpretation Comments Potassium Lvl (test code = Potassium 4.5 3.5-5.1 Lvl) [facility]2021-08-08 07:30:00 Test Item Value Reference Range Interpretation Comments Chloride Lvl (test code = Chloride Lvl) 99 95-109 [place] 375491-08-08 07:30:00 Test Item Value Reference Range Interpretation Comments CO2 (test code = CO2) 31 24-32 [place] 375491-08-08 07:30:00 Test Item Value Reference Range Interpretation Comments AGAP (test code = AGAP) 10.5 10.0-20.0 [place] 375491-08-08 07:30:00 Test Item Value Reference Range Interpretation Comments Calcium Lvl (test code = Calcium Lvl) 7.9 8.5-10.5 [place] 375491-08-08 07:30:00 Test Item Value Reference Range Interpretation Comments eGFR (test code = eGFR) 13 [place] 375491-08-08 07:30:00 Test Item Value Reference Range Interpretation Comments Magnesium Lvl (test code = Magnesium 2.2 1.8-2.4 Lvl) [place] 375491-08-08 07:30:00 Test Item Value Reference Range Interpretation Comments Phosphorus (test code = Phosphorus) 4.4 2.5-4.5 [place] 453831-08-08 07:30:00 Test Item Value Reference Range Interpretation Comments WBC (test code = WBC) 2.3 3.7-10.4 [place] 453831-08-08 07:30:00 Test Item Value Reference Range Interpretation Comments RBC (test code = RBC) 2.88 4.20-5.40 [place] 453831-08-08 07:30:00 Test Item Value Reference Range Interpretation Comments Hgb (test code = Hgb) 8.6 12.0-16.0 [place] 453831-08-08 07:30:00 Test Item Value Reference Range Interpretation Comments Hct (test code = Hct) 26.6 36.0-48.0 [place] 453831-08-08 07:30:00 Test Item Value Reference Range Interpretation Comments MCV (test code = MCV) 92.2 80.0-98.0 [place] 453831-08-08 07:30:00 Test Item Value Reference Range Interpretation Comments MCH (test code = MCH) 29.8 pg 27.0-31.0 [place] 453831-08-08 07:30:00 Test Item Value Reference Range Interpretation Comments MCHC (test code = MCHC) 32.4 32.0-36.0 [place] 453831-08-08 07:30:00 Test Item Value Reference Range Interpretation Comments RDW (test code = RDW) 19.7 11.5-14.5 [place] 453831-08-08 07:30:00 Test Item Value Reference Range Interpretation Comments Platelet (test code = Platelet) 83 133-450 [facility] CenterBaobhdyLVISREJPGL7032-92-27 07:30:00 Test Item Value Reference Range Interpretation Comments MPV (test code = MPV) 10.2 7.4-10.4 [place] 453831-08-08 07:30:00 Test Item Value Reference Range Interpretation Comments Segs (test code = Segs) 64.0 45.0-75.0 [place] 453831-08-08 07:30:00 Test Item Value Reference Range Interpretation Comments Lymphocytes (test code = Lymphocytes) 24.1 20.0-40.0 [facility] CenterPpccomcVEHELAHMRH1097-75-20 07:30:00 Test Item Value Reference Range Interpretation Comments Monocytes (test code = Monocytes) 7.0 2.0-12.0 [facility] CenterGwjnwxnDCHZVNGNDS4992-05-20 07:30:00 Test Item Value Reference Range Interpretation Comments Eosinophils (test code = 3.7 See_Comment [A utomated message] The Eosinophils) system which ge nerated this result tra nsmitted reference range : <=4.0. The reference r leo was not used to int erpret this result as normal/abnormal . [facility] CenterQtejeiqKAJLXHGENI8882-12-41 07:30:00 Test Item Value Reference Range Interpretation Comments Basophils (test code = 1.2 See_Comment [Aut omated message] The Basophils) system which ge nerated this result tra nsmitted reference range : <=1.0. The reference r leo was not used to int erpret this result as normal/abnormal . [facility] CenterOttkprbTBIISULKZQ7930-12-59 07:30:00 Test Item Value Reference Range Interpretation Comments Neutrophils # (test code = Neutrophils 1.5 1.5-8.1 #) [facility] CenterEoyuixdOIHCGRWRCQ7679-85-78 07:30:00 Test Item Value Reference Range Interpretation Comments Lymphocytes # (test code = Lymphocytes 0.6 1.0-5.5 #) [facility] CenterYbwaumwQYSHGRRQIH8320-11-04 07:30:00 Test Item Value Reference Range Interpretation Comments Monocytes # (test code 0.2 See_Comment [Aut omated message] The = Monocytes #) system which generated this result tra nsmitted reference range : <=0.8. The reference r leo was not used to int erpret this result as normal/abnormal . [place] 453831-08-08 07:30:00 Test Item Value Reference Range Interpretation Comments Eosinophils # (test code 0.1 See_Comment [A utomated message] The = Eosinophils #) system whic h generated this result tra nsmitted reference range : <=0.5. The reference r leo was not used to int erpret this result as normal/abnormal . [place] 375491-08-07 09:32:00 Test Item Value Reference Range Interpretation Comments Glucose Lvl (test code = Glucose Lvl) 59 70-99 [facility] [id number] 09:32:00 Test Item Value Reference Range Interpretation Comments BUN (test code = BUN) 11 7-22 [facility] [id number] 09:32:00 Test Item Value Reference Range Interpretation Comments Creatinine Lvl (test code = Creatinine 2.75 0.50-1.40 Lvl) [place] 375491-08-07 09:32:00 Test Item Value Reference Range Interpretation Comments Sodium Lvl (test code = Sodium Lvl) 138 135-145 [place] 375491-08-07 09:32:00 Test Item Value Reference Range Interpretation Comments Potassium Lvl (test code = Potassium 4.1 3.5-5.1 Lvl) [place] 375491-08-07 09:32:00 Test Item Value Reference Range Interpretation Comments Chloride Lvl (test code = Chloride Lvl) 104 95-109 [facility] [id number] 09:32:00 Test Item Value Reference Range Interpretation Comments CO2 (test code = CO2) 29 24-32 [facility] [id number] 09:32:00 Test Item Value Reference Range Interpretation Comments Calcium Lvl (test code = Calcium Lvl) 8.3 8.5-10.5 [facility] [id number] 09:32:00 Test Item Value Reference Range Interpretation Comments AGAP (test code = AGAP) 9.1 10.0-20.0 [facility]2021-08-07 09:32:00 Test Item Value Reference Range Interpretation Comments eGFR (test code = eGFR) 21 [facility]2021-08-07 09:32:00 Test Item Value Reference Range Interpretation Comments Magnesium Lvl (test code = Magnesium 2.2 1.8-2.4 Lvl) [facility]2021-08-07 09:32:00 Test Item Value Reference Range Interpretation Comments Phosphorus (test code = Phosphorus) 3.9 2.5-4.5 [place] 453831-08-07 09:32:00 Test Item Value Reference Range Interpretation Comments WBC (test code = WBC) 2.3 3.7-10.4 [place] 453831-08-07 09:32:00 Test Item Value Reference Range Interpretation Comments RBC (test code = RBC) 2.78 4.20-5.40 [place] 453831-08-07 09:32:00 Test Item Value Reference Range Interpretation Comments Hgb (test code = Hgb) 8.4 12.0-16.0 [place] 453831-08-07 09:32:00 Test Item Value Reference Range Interpretation Comments Hct (test code = Hct) 25.2 36.0-48.0 [place] 453831-08-07 09:32:00 Test Item Value Reference Range Interpretation Comments MCV (test code = MCV) 90.5 80.0-98.0 [place] 453831-08-07 09:32:00 Test Item Value Reference Range Interpretation Comments MCH (test code = MCH) 30.4 pg 27.0-31.0 [place] 453831-08-07 09:32:00 Test Item Value Reference Range Interpretation Comments MCHC (test code = MCHC) 33.5 32.0-36.0 [place] 453831-08-07 09:32:00 Test Item Value Reference Range Interpretation Comments RDW (test code = RDW) 19.0 11.5-14.5 [place] 453831-08-07 09:32:00 Test Item Value Reference Range Interpretation Comments Platelet (test code = Platelet) 87 133-450 [place] 453831-08-07 09:32:00 Test Item Value Reference Range Interpretation Comments MPV (test code = MPV) 10.0 7.4-10.[address] [facility] [place] [place] [id number] 05:33:00 Test Item Value Reference Range Interpretation Comments ABO/Rh (test code = ABO/Rh) B POS [facility] [place] [place] [id number] 05:33:00 Test Item Value Reference Range Interpretation Comments Antibody Scrn (test Negative (01/24/21 12:33 code = Antibody Scrn) AM) [facility] CenterHefhfcvBBOKECEHSZ3975-50-97 05:33:00 Test Item Value Reference Range Interpretation Comments Segs (test code = Segs) 60.2 45.0-75.0 [facility] CenterQmabgiqUIEOFIHBPW0822-41-13 05:33:00 Test Item Value Reference Range Interpretation Comments Lymphocytes (test code = Lymphocytes) 28.6 20.0-40.0 [facility] CenterQkqhjatWKFWGZMWPP7741-47-29 05:33:00 Test Item Value Reference Range Interpretation Comments Monocytes (test code = Monocytes) 5.8 2.0-12.0 [facility] CenterBdxlvriXEDIPSOSKO2752-76-86 05:33:00 Test Item Value Reference Range Interpretation Comments Eosinophils (test code = 4.2 See_Comment [A utomated message] The Eosinophils) system which ge nerated this result tra nsmitted reference range : <=4.0. The reference r leo was not used to int erpret this result as normal/abnormal . [facility] CenterTfyaxrqFEEMSXOPPL8231-82-36 05:33:00 Test Item Value Reference Range Interpretation Comments Basophils (test code = 1.2 See_Comment [Aut omated message] The Basophils) system which ge nerated this result tra nsmitted reference range : <=1.0. The reference r leo was not used to int erpret this result as normal/abnormal . [facility] CenterGhxliotTSQCAMDVCN7216-71-45 05:33:00 Test Item Value Reference Range Interpretation Comments Neutrophils # (test code = Neutrophils 2.2 1.5-8.1 #) [facility] CenterXalagjkVFOFTVAARD1986-73-08 05:33:00 Test Item Value Reference Range Interpretation Comments Lymphocytes # (test code = Lymphocytes 1.1 1.0-5.5 #) [facility] CenterCkgewubROBBRTGZOE1045-83-50 05:33:00 Test Item Value Reference Range Interpretation Comments Monocytes # (test code 0.2 See_Comment [Aut omated message] The = Monocytes #) system which generated this result tra nsmitted reference range : <=0.8. The reference r leo was not used to int erpret this result as normal/abnormal . [facility] CenterAzukikkJTRXIVQOFR7221-42-40 05:33:00 Test Item Value Reference Range Interpretation Comments Eosinophils # (test code 0.2 See_Comment [A utomated message] The = Eosinophils #) system whic h generated this result tra nsmitted reference range : <=0.5. The reference r leo was not used to int erpret this result as normal/abnormal . [facility] CenterUgkemhyBXWITAEUPT4945-21-34 05:53:00 Test Item Value Reference Range Interpretation Comments PT (test code = PT) 14.4 s 12.0-14.7 [facility] CenterYjnagxtCHSCUQNZLQ0884-90-04 05:53:00 Test Item Value Reference Range Interpretation Comments INR (test code = INR) 1.13 1 0.85-1.17 [facility] CenterOdyqpxiIVDYKLRYCY6636-48-49 05:53:00 Test Item Value Reference Range Interpretation Comments Fibrinogen Lvl (test code = Fibrinogen 319 230-510 Lvl) [facility] CenterZekoinhAHVICMWNQW4078-92-87 05:53:00 Test Item Value Reference Range Interpretation Comments Thrombin Time (test code = Thrombin 15.9 s 15.0-21.2 Time) [facility] CenterChlettmBDHJYROMKX3873-79-15 05:53:00 Test Item Value Reference Range Interpretation Comments PTT (test code = PTT) 47.0 s 22.9-35.8 [facility] CenterDupwglkBSLXTMEFKD2718-68-54 05:53:00 Test Item Value Reference Range Interpretation Comments D-Dimer (test code = D-Dimer) 0.91 [facility] CenterLpskzzbBQCZNTXERD6817-95-40 05:53:00 Test Item Value Reference Range Interpretation Comments Basophils # (test code 0.1 See_Comment [Aut omated message] The = Basophils #) system which generated this result tra nsmitted reference range : <=0.2. The reference r leo was not used to int erpret this result as normal/abnormal . [facility]aPARATHYROID [id number] 05:53:00 Test Item Value Reference Range Interpretation Comments Ca Ion WB (test code = Ca Ion WB) 1.24 1.05-1.25 [facility]naeemPARATHYROID JJXPRZY0563-02-78 05:53:00 Test Item Value Reference Range Interpretation Comments Ca Norm WB (test code = Ca Norm WB) 1.25 1.05-1.25 [facility] HospitalMev[facility] Medical Systems[facility]ITALUOMGW7297-72-30 10:09:00 Test Item Value Reference Range Interpretation Comments ALT (test code = ALT) 49 See_Comment [Auto mated message] The system which ge nerated this result transmit rohit reference range : <=65. The reference range was not used to interpr et this result as reji l/abnormal. [facility] [id number] 10:09:00 Test Item Value Reference Range Interpretation Comments Albumin Lvl (test code = Albumin Lvl) 2.8 3.5-5.0 [facility], Inc.[facility]PITALERAHU9865-58-31 10:09:00 Test Item Value Reference Range Interpretation Comments Alk Phos (test code = Alk Phos) 41 39-136 [facility] [id number] 10:09:00 Test Item Value Reference Range Interpretation Comments Bili Direct (test code 0.2 See_Comment [Aut omated message] The = Bili Direct) system which generated this result tra nsmitted reference range : <=0.3. The reference r leo was not used to int erpret this result as reji l/abnormal. [facility] [id number] 10:09:00 Test Item Value Reference Range Interpretation Comments Bili Total (test code = Bili Total) 0.6 0.2-1.3 [facility] [id number] 10:09:00 Test Item Value Reference Range Interpretation Comments Bili Indirect (test 0.4 See_Comment [Automa rohit message] The code = Bili Indirect) system which generated this result tra nsmitted reference range : <=1.0. The reference r leo was not used to int erpret this result as normal/abnormal . [facility] [id number] 10:09:00 Test Item Value Reference Range Interpretation Comments Total Protein (test code = Total 5.6 6.4-8.4 Protein) [facility] [id number] 10:09:00 Test Item Value Reference Range Interpretation Comments AST (test code = AST) 33 See_Comment [Auto mated message] The system which ge nerated this result transmit rohit reference range : <=37. The reference range was not used to interpr et this result as reji l/abnormal. [facility] [id number] 10:09:00 Test Item Value Reference Range Interpretation Comments Globulin (test code = Globulin) 2.8 2.7-4.2 [facility] [id number] 10:09:00 Test Item Value Reference Range Interpretation Comments A/G Ratio (test code = A/G Ratio) 1.0 1 0.7-1.6 [facility] [id number] 10:09:00 Test Item Value Reference Range Interpretation Comments Amylase Lvl (test code = Amylase Lvl) 19 25-115 [facility] [id number] 10:09:00 Test Item Value Reference Range Interpretation Comments Lipase Lvl (test code = Lipase Lvl) no gt 73-393 [facility]aKvpincxISRYERRAXF5988-56-40 10:09:00 Test Item Value Reference Range Interpretation Comments PTT (test code = PTT) 41.4 s 22.9-35.8 [facility] CenterZcfnibpHUVILBGXNM4424-67-66 10:09:00 Test Item Value Reference Range Interpretation Comments PT (test code = PT) 15.4 s 12.0-14.7 [facility] CenterNavzghkGWUTXYLVJN0278-20-14 10:09:00 Test Item Value Reference Range Interpretation Comments INR (test code = INR) 1.24 1 0.85-1.17 [facility] CenterVneodrmUJQKUCEIDT5455-65-38 10:09:00 Test Item Value Reference Range Interpretation Comments Fibrinogen Lvl (test code = Fibrinogen 312 230-510 Lvl) [facility] CenterSztqgquPUUHXGEZPY7158-64-50 10:09:00 Test Item Value Reference Range Interpretation Comments Thrombin Time (test code = Thrombin 16.6 s 15.0-21.2 Time) [facility] CenterHxelrwjTJUQFLMDPS6844-71-95 10:09:00 Test Item Value Reference Range Interpretation Comments D-Dimer (test code = D-Dimer) 4.91 [facility] CenterLkrcwylCXQZUVNXVY4575-13-43 10:09:00 Test Item Value Reference Range Interpretation Comments Basophils # (test code 0.1 See_Comment [Aut omated message] The = Basophils #) system which generated this result tra nsmitted reference range : <=0.2. The reference r leo was not used to int erpret this result as normal/abnormal . [facility] KKZUXATPJ3621-71-74 10:09:00 Test Item Value Reference Range Interpretation Comments Hgb A1C (test code = Hgb A1C) 5.6 [facility]aCHEM [id number] 09:07:00 Test Item Value Reference Range Interpretation Comments Amylase Lvl (test code = Amylase Lvl) 4 25-115 [facility]aFzkziqfCJMWJMKGTN6783-86-07 09:07:00 Test Item Value Reference Range Interpretation Comments Thrombin Time (test code = Thrombin 18.0 s 15.0-21.2 Time) [facility] CenterIshyphnBHEXTKYFRN2360-85-76 09:07:00 Test Item Value Reference Range Interpretation Comments PT (test code = PT) 24.6 s 12.0-14.7 [facility] CenterNvttblfSSKMZXCUBG5910-76-54 09:07:00 Test Item Value Reference Range Interpretation Comments INR (test code = INR) 2.31 1 0.85-1.17 [facility] CenterOhvhhmgGKZHPQPGNF8547-57-17 09:07:00 Test Item Value Reference Range Interpretation Comments PTT (test code = PTT) 57.5 s 22.9-35.8 [facility]aJfipjpvADIFUJTLTU9330-09-17 09:07:00 Test Item Value Reference Range Interpretation Comments Fibrinogen Lvl (test code = Fibrinogen 125 230-510 Lvl) [facility] CenterLmfhbkwUREXDIRMYM5039-94-96 09:07:00 Test Item Value Reference Range Interpretation Comments D-Dimer (test code = D-Dimer) 2.28 [facility] [id number] 04:52:00 Test Item Value Reference Range Interpretation Comments RBC product (test code Product available = RBC product) (01/21/21 11:52 PM) [facility]aCARDIAC [id number] 00:38:00 Test Item Value Reference Range Interpretation Comments Troponin-I (test code no gt See_Comment [Auto mated message] The = Troponin-I) system which g enerated this result transmit rohit reference range : <=0.40. The reference r leo was not used to interpr et this result as reji l/abnormal. [facility]aEnd[facility] [id number] 17:47:00 Test Item Value Reference Range Interpretation Comments BNP (test code = BNP) 2324 [facility]annCARDIAC [id number] 17:47:00 Test Item Value Reference Range Interpretation Comments Troponin-I (test code 0.02 See_Comment [Auto mated message] The = Troponin-I) system which g enerated this result transmit rohit reference range : <=0.40. The reference r leo was not used to interpr et this result as reji l/abnormal. [facility]aMlhnefjJXQZEWYNYE5163-71-12 17:47:00 Test Item Value Reference Range Interpretation Comments Hep Bs Ag (test code Negative *NA*(01/21/21 = Hep Bs Ag) 12:47 PM) [facility] [id number] 17:43:00 Test Item Value Reference Range Interpretation Comments B/C Ratio (test code = B/C Ratio) 5 1 6-25 [facility] [id number] 17:43:00 Test Item Value Reference Range Interpretation Comments ALT (test code = ALT) 66 See_Comment [Auto mated message] The system which ge nerated this result transmit rohit reference range : <=65. The reference range was not used to interpr et this result as reji l/abnormal. [facility] [id number] 17:43:00 Test Item Value Reference Range Interpretation Comments Albumin Lvl (test code = Albumin Lvl) 3.0 3.5-5.0 [facility] [id number] 17:43:00 Test Item Value Reference Range Interpretation Comments Alk Phos (test code = Alk Phos) 40 39-136 [facility] [id number] 17:43:00 Test Item Value Reference Range Interpretation Comments Bili Total (test code = Bili Total) 0.5 0.2-1.3 [facility] [id number] 17:43:00 Test Item Value Reference Range Interpretation Comments Total Protein (test code = Total 5.7 6.4-8.4 Protein) [facility] [id number] 17:43:00 Test Item Value Reference Range Interpretation Comments AST (test code = AST) 52 See_Comment [Auto mated message] The system which ge nerated this result transmit rohit reference range : <=37. The reference range was not used to interpr et this result as reji l/abnormal. [facility] [employer] [id number] 17:43:00 Test Item Value Reference Range Interpretation Comments Globulin (test code = Globulin) 2.7 2.7-4.2 [facility] [id number] 17:43:00 Test Item Value Reference Range Interpretation Comments A/G Ratio (test code = A/G Ratio) 1.1 1 0.7-1.6 [facility] [employer] [id number] 17:43:00 Test Item Value Reference Range Interpretation Comments Lactic Acid Lvl (test code = Lactic 1.1 0.5-2.2 Acid Lvl) [facility] [id number] 16:20:00 Test Item Value Reference Range Interpretation Comments ABO/Rh (test code = ABO/Rh) B POS [facility] Sleep.FM [facility] [id number] 16:20:00 Test Item Value Reference Range Interpretation Comments Antibody Scrn (test Negative (01/21/21 11:20 code = Antibody Scrn) AM) [id number] 16:20:00 Test Item Value Reference Range Interpretation Comments Anisocyte (test code = 1+ *ABN*(01/21/21 Anisocyte) 11:20 AM) [facility] [id number] 15:35:00 Test Item Value Reference Range Interpretation Comments Lactase Lvl (test code = Lactase Lvl) 2.0 [facility] [id number] 15:35:00 Test Item Value Reference Range Interpretation Comments Sucrase Lvl (test code = Sucrase Lvl) 38.6 [facility] [id number] 15:35:00 Test Item Value Reference Range Interpretation Comments Maltase Lvl (test code = Maltase Lvl) 177.2 [facility] [id number] 15:35:00 Test Item Value Reference Range Interpretation Comments Palatinase Lvl (test code = Palatinase 13.8 Lvl) [facility]aqZCREWYPELOTR4855-01-19 13:21:00 Test Item Value Reference Range Interpretation Comments Potassium WB (test code = Potassium WB) 5.1 3.5-5.1 [id number] 13:21:00 Test Item Value Reference Range Interpretation Comments S Preg (test code = S Negative 8*NA*(01/21/21 Preg) 8:21 AM) [id number] 11:19:00 Test Item Value Reference Range Interpretation Comments Coronavirus (COVID-19) Not Detected (01/21/21 EMANUEL (test code = 6:19 AM) Coronavirus (COVID-19) EMANUEL) [facility] [id number] 16:39:05 Test Item Value Reference Range Interpretation Comments Glucose POC (test 183 mg/dL 70-115 H If you con real estate development manager your code = Glucose POC) patient critically ill, the Merlin-Accu Check Infrom II meter should not be used for Glucose determination. Draw a venous Glucose and send to the main Lab for analysis. Urine [id number] 11:32:13 Test Item Value Reference Range Interpretation [...] Escherichia coli C Urine Added by GL_SJM_UA_CUL_INDPOC [id number] 07:52:10 Test Item Value Reference Range Interpretation Comments Glucose POC (test 160 mg/dL 70-115 H If you con real estate development manager your code = Glucose POC) patient critically ill, the Merlin-Accu Check Infrom II meter should not be used for Glucose determination. Draw a venous Glucose and send to the main Lab for analysis. POC [id number] 19:32:05 Test Item Value Reference Range Interpretation Comments Glucose POC (test 184 mg/dL 70-115 H If you con real estate development manager your code = Glucose POC) patient critically ill, the Merlin-Accu Check Infrom II meter should not be used for Glucose determination. Draw a venous Glucose and send to the main Lab for analysis. POC [id number] 17:16:35 Test Item Value Reference Range Interpretation Comments Glucose POC (test 281 mg/dL 70-115 H Notify RN or MDIf you code = Glucose POC) consider your patient critically ill, the Merlin-Accu Chec k Infrom II meter should not be used for Glucos e determination. Draw a venous Glucose and send to the main Lab for analysis. POC [id number] 12:00:38 Test Item Value Reference Range Interpretation Comments Glucose POC (test 138 mg/dL 70-115 H Notify RN or MDIf you code = Glucose POC) consider your patient critically ill, the Merlin-Accu Chec k Infrom II meter should not be used for Glucos e determination. Draw a venous Glucose and send to the main Lab for analysis. POC [id number] 07:41:32 Test Item Value Reference Range Interpretation Comments Glucose POC (test 206 mg/dL 70-115 H Notify RN or MDIf you code = Glucose POC) consider your patient critically ill, the Merlin-Accu Chec k Infrom II meter should not be used for Glucos e determination. Draw a venous Glucose and send to the main Lab for analysis. Urinalysis [id number] 21:07:21 Test Item Value Reference Range Interpretation Comments UA WBC (test code = UA WBC) TNTC 0-5 A UA RBC (test code = UA RBC) 6-10 0-5 A UA Bacteria (test code = UA Bacteria) Profuse A UA Squam Epithelial (test code = UA 6-10 A Squam Epithelial) Urinalysis with Culture, if [id number] 20:35:14 Test Item Value Reference Range Interpretation [...] Micro Indicated Not Indicated A Ind?) POC [id number] 19:06:34 Test Item Value Reference Range Interpretation Comments Glucose POC (test 207 mg/dL 70-115 H If you con real estate development manager your code = Glucose POC) patient critically ill, the Merlin-Accu Check Infrom II meter should not be used for Glucose determination. Draw a venous Glucose and send to the main Lab for analysis. POC [id number] 17:12:03 Test Item Value Reference Range Interpretation Comments Glucose POC (test 173 mg/dL 70-115 H Notify RN or MDIf you code = Glucose POC) consider your patient critically ill, the Merlin-Accu Chec k Infrom II meter should not be used for Glucos e determination. Draw a venous Glucose and send to the main Lab for analysis. POC [id number] 11:58:01 Test Item Value Reference Range Interpretation Comments Glucose POC (test 289 mg/dL 70-115 H Notify RN or MDIf you code = Glucose POC) consider your patient critically ill, the Merlin-Accu Chec k Infrom II meter should not be used for Glucos e determination. Draw a venous Glucose and send to the main Lab for analysis. POC [id number] 08:19:37 Test Item Value Reference Range Interpretation Comments Glucose POC (test 201 mg/dL 70-115 H Notify RN or MDIf you code = Glucose POC) consider your patient critically ill, the Merlin-Accu Chec k Infrom II meter should not be used for Glucos e determination. Draw a venous Glucose and send to the main Lab for analysis. POC [id number] 20:37:35 Test Item Value Reference Range Interpretation Comments Glucose POC (test 272 mg/dL 70-115 H If you con real estate development manager your code = Glucose POC) patient critically ill, the Merlin-Accu Check Infrom II meter should not be used for Glucose determination. Draw a venous Glucose and send to the main Lab for analysis. POC [id number] 17:23:05 Test Item Value Reference Range Interpretation Comments Glucose POC (test 229 mg/dL 70-115 H If you con real estate development manager your code = Glucose POC) patient critically ill, the Merlin-Accu Check Infrom II meter should not be used for Glucose determination. Draw a venous Glucose and send to the main Lab for analysis. POC [id number] 12:01:01 Test Item Value Reference Range Interpretation Comments Glucose POC (test 155 mg/dL 70-115 H If you con real estate development manager your code = Glucose POC) patient critically ill, the Merlin-Accu Check Infrom II meter should not be used for Glucose determination. Draw a venous Glucose and send to the main Lab for analysis. POC [id number] 08:07:32 Test Item Value Reference Range Interpretation Comments Glucose POC (test 248 mg/dL 70-115 H If you con real estate development manager your code = Glucose POC) patient critically ill, the Merlin-Accu Check Infrom II meter should not be used for Glucose determination. Draw a venous Glucose and send to the main Lab for analysis. IG [id number] 06:50:39 Test Item Value Reference Range Interpretation Comments IG (test code = IG) 0.7 % 0.0-5.0 IG Abs (test code = IG Abs) 0 x10 N Complete Blood Count with [id number] 06:50:38 Test Item Value Reference Range Interpretation [...] code = IPF) 0 % N Automated [id number] 06:50:38 Test Item Value Reference Range Interpretation Comments Neutro Auto (test code = Neutro 50.3 % 36.0-70.0 Auto) Lymph Auto (test code = Lymph Auto) 38.6 % 12.0-44.0 [place] Auto (test code = [place] Auto) 7.3 % 0.0-11.0 Eos, Auto (test code = Eos, Auto) 2.4 % 0.0-7.0 Basophil Auto (test code = Basophil 0.7 % 0.0-2.0 Auto) Neutro Absolute (test code = Neutro 3.0 x10 1.6-7.4 Absolute) Lymph Absolute (test code = Lymph 2.28 x10 .50-4.60 Absolute) [place] Absolute (test code = [place] .43 x10 .00-1.20 Absolute) Eos Absolute (test code = Eos 0.14 x10 0.00-0.74 Absolute) Baso Absolute (test code = Baso 0.04 x10 0.00-0.21 Absolute) Basic Metabolic [id number] 05:38:20 Test Item Value Reference Range Interpretation [...] = Lipemia) 0 mg/dL 8-11 Basic Metabolic [id number] 05:38:20 Test Item Value Reference Range Interpretation [...] = 0 mg/dL 8-11 Lipemia) Basic Metabolic [id number] 05:38:20 Test Item Value Reference Range Interpretation [...] ag e have not been validated by [facility] MDRD study and should be interpreted [...] ag e have not been validated by [facility] MDRD study and should be interpreted [...] code = 0 mg/dL 8-11 Lipemia) POC [id number] 20:28:33 Test Item Value Reference Range Interpretation Comments Glucose POC (test 169 mg/dL 70-115 H If you con real estate development manager your code = Glucose POC) patient critically ill, the Merlin-Accu Check Infrom II meter should not be used for Glucose determination. Draw a venous Glucose and send to the main Lab for analysis. POC [id number] 16:39:30 Test Item Value Reference Range Interpretation Comments Glucose POC (test 103 mg/dL 70-115 If you con real estate development manager your code = Glucose POC) patient critically ill, the Merlin-Accu Check Infrom II meter should not be used for Glucose determination. Draw a venous Glucose and send to the main Lab for analysis. RPR [id number] 12:08:56 Test Item Value Reference Range Interpretation Comments RPR Qual (test code = RPR Qual) Non-Reactive Non-Reactive Reactive Control (test code = Reactive Reactive Control) Weak Reactive Control (test Weak Reactive code = Weak Reactive Control) Non-Reactive Control (test code Non-Reactive = Non-Reactive Control) Lot # (test code = Lot #) [id number] N Expiration Dt (test code = 03-20-2021 N Expiration Dt) POC [id number] 11:52:31 Test Item Value Reference Range Interpretation Comments Glucose POC (test 250 mg/dL 70-115 H If you con real estate development manager your code = Glucose POC) patient critically ill, the Merlin-Accu Check Infrom II meter should not be used for Glucose determination. Draw a venous Glucose and send to the main Lab for analysis. POC [id number] 07:55:29 Test Item Value Reference Range Interpretation Comments Glucose POC (test 205 mg/dL 70-115 H If you con real estate development manager your code = Glucose POC) patient critically ill, the Merlin-Accu Check Infrom II meter should not be used for Glucose determination. Draw a venous Glucose and send to the main Lab for analysis. Lipid [id number] 05:46:04 Test Item Value Reference Range Interpretation [...] LDL/HDL Ratio=L DL Calc/HDL Chol Thyroid Stimulating [id number] 05:46:04 Test Item Value Reference Range Interpretation Comments TSH (test code = TSH) 3.274 mcIU/mL 0.550-4.780 Hemoglobin [id number] 05:41:08 Test Item Value Reference Range Interpretation Comments Hemoglobin A1c (test code 7.6 % 4.0-5.8 H Di abetic >=6.5 = Hemoglobin A1c) %Prediabet es 5.7-6.4 %Normal <5.7 % Hepatitis B Surface [id number] 21:19:36 Test Item Value Reference Range Interpretation Comments Hep Bs Ag (test code = Hep Bs Non-Reactive Non-Reactive Ag) Novel Coronavirus SARS-CoV-2, [id number] 11:16:16 Test Item Value Reference Range Interpretation [...] Emergency Use Authorization." Novel Coronavirus (COVID-19), EMANUEL [id number] 11:11:24TNPTest not sent and performed at [facility]Rapid was perfomed in Microbiology.Wrong covid test was ord ered.Urine DOA [id number] 00:17:49 Test Item Value Reference Range Interpretation [...] Propoxyphene Confirmation wi thin 7 days. Alcohol [id number] 00:17:29 Test Item Value Reference Range Interpretation Comments Ethanol Level 9.0 mg/dL N The pharmacolo gical (test code = response to blo od alcohol Ethanol Level) levels may va ry from individual to i ndividual. The fatal omkar ntration has been report ed to be >400 mg/dl. Comprehensive Metabolic [id number] 00:17:28 Test Item Value Reference Range Interpretation [...] = Lipemia) 0 g/dL 1-2 Comprehensive Metabolic [id number] 00:17:28 Test Item Value Reference Range Interpretation [...] = 0 g/dL 1-2 Lipemia) Comprehensive Metabolic [id number] 00:17:28 Test Item Value Reference Range Interpretation [...] g/dL 1-2 Lipemia) Complete Blood Count with [id number] 23:26:28 Test Item Value Reference Range Interpretation [...] code = IPF) 0 % N Automated [id number] 23:26:28 Test Item Value Reference Range Interpretation Comments Neutro Auto (test code = Neutro 67.1 % 36.0-70.0 Auto) Lymph Auto (test code = Lymph Auto) 23.3 % 12.0-44.0 [place] Auto (test code = [place] Auto) 5.8 % 0.0-11.0 Eos, Auto (test code = Eos, Auto) 2.3 % 0.0-7.0 Basophil Auto (test code = Basophil 0.8 % 0.0-2.0 Auto) Neutro Absolute (test code = Neutro 6.0 x10 1.6-7.4 Absolute) Lymph Absolute (test code = Lymph 2.10 x10 .50-4.60 Absolute) [place] Absolute (test code = [place] .52 x10 .00-1.20 Absolute) Eos Absolute (test code = Eos 0.21 x10 0.00-0.74 Absolute) Baso Absolute (test code = Baso 0.07 x10 0.00-0.21 Absolute) IG [id number] 23:26:28 Test Item Value Reference Range Interpretation Comments IG (test code = IG) 0.7 % 0.0-5.0 IG Abs (test code = IG Abs) 0 x10 N HERPES VIRUS ANTIBODY, [id number] 21:46:00 Test Item Value Reference Range Interpretation Comments HERPES VIRUS IGM (BEAKER) Negative SE E ATTACHMENT (test code = 1808) BLOOD [id number] 06:00:00 Test Item Value Reference Range Interpretation Comments CULTURE (BEAKER) (test No growth in 5 days code = 1095) BLOOD [id number] 06:00:00 Test Item Value Reference Range Interpretation Comments CULTURE (BEAKER) (test No growth in 5 days code = 1095) POCT-GLUCOSE [id number] 12:11:00 Test Item Value Reference Range Interpretation Comments POC-GLUCOSE METER 154 mg/dL 70-110 H TESTED AT [facility] 67[address] (BEAKER) (test code = [place] 1538) [address] POCT-GLUCOSE [id number] 07:53:00 Test Item Value Reference Range Interpretation Comments POC-GLUCOSE METER 87 mg/dL 70-110 TESTED AT [facility] 67[address] (BEAKER) (test code = [place] [address] 1538) POCT-GLUCOSE [id number] 06:49:00 Test Item Value Reference Range Interpretation Comments POC-GLUCOSE METER 79 mg/dL 70-110 TESTED AT [facility] [address] (BEAKER) (test code = [place] [facility] [address] 1538) COMPREHENSIVE METABOLIC [id number] 06:15:00 Test Item Value Reference Range Interpretation [...] I S NOT APPLICABLE FOR DIALYSIS PATIANGELICA STAHL. [id number] 06:11:00 Test Item Value Reference Range Interpretation Comments MAGNESIUM (BEAKER) (test code = 2.1 mg/dL 1.6-2.6 627) HEPATIC FUNCTION [id number] 06:11:00 Test Item Value Reference Range Interpretation [...] code = 513 U/L 6-55 H 347) [id number] 05:30:00 Test Item Value Reference Range Interpretation Comments FIBRINOGEN LEVEL (BEAKER) (test 368 mg/dl 225-434 code = 658) [id number] 05:30:00 Test Item Value Reference Range Interpretation Comments PARTIAL THROMBOPLASTIN TIME 42.2 seconds 22.5-36.0 H (BEAKER) (test code = 760) PROTHROMBIN [id number] 05:29:00 Test Item Value Reference Range Interpretation Comments PROTIME (BEAKER) (test code = 14.8 seconds 11.7-14.7 H 759) INR (BEAKER) (test code = 370) 1.2 <=5.9 RECOMMENDED COUMADIN/WARFARIN INR THERAPY RANGESSTANDARD DOSE: 2.0 - 3.0 Includes: PROPHYLAXIS forvenous thrombosis, systemic embolization; TREATMENT for venous thrombosis and/or pulmonary embolus.HIGH RISK: Target INR is 2.5-3.5 for patients with mechanical heart valves.POCT-GLUCOSE [id number] 21:09:00 Test Item Value Reference Range Interpretation Comments POC-GLUCOSE METER 178 mg/dL 70-110 H TESTED AT [facility] 67[address] ([facility]) (test code = [place] 1538) [address] POCT-GLUCOSE [id number] 17:18:00 Test Item Value Reference Range Interpretation Comments POC-GLUCOSE METER 178 mg/dL 70-110 H TESTED AT [facility] 67[address] ([facility]) (test code = [facility] 1538) [address] POCT-GLUCOSE [id number] 13:48:00 Test Item Value Reference Range Interpretation Comments POC-GLUCOSE METER 150 mg/dL 70-110 H TESTED AT [place] [address] ([facility]) (test code = [facility] 1538) [address] FACTOR 5 ACTIVITY (BLEEDING RISK)2017-01-06 10:04:00 Test Item Value Reference Range Interpretation Comments FACTOR V ACTIVITY ([facility]) (test code 90.0 % 60.0-150.0 = 665) Effective 10/24/2013: Reference Range Change-Adult onlyNew: 60.0-150.0 Previous: 50.0-150.0CYTOMEGALOVIRUS ANTIBODY, [id number] 09:42:00 Test Item Value Reference Range Interpretation Comments CYTOMEGALOVIRUS IGM ANTIBODY Negative ([facility]) (test code = 816) HERPES VIRUS ANTIBODY, [id number] 08:59:00 Test Item Value Reference Range Interpretation Comments 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[facility]) (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 G 1807) CYTOMEGALOVIRUS ANTIBODY, [id number] 08:59:00 Test Item Value Reference Range Interpretation Comments CYTOMEGALOVIRUS IGG ANTIBODY Positive ([facility]) (test code = 790) EBV-VCA ANTIBODY, [id number] 08:59:00 Test Item Value Reference Range Interpretation Comments JASE-WALL VCA IGG ([facility]) (test Positive code = 983) EBV-VCA ANTIBODY, [id number] 08:59:00 Test Item Value Reference Range Interpretation Comments JASE-WALL VCA IGM ([facility]) (test Negative code = 984) POCT-GLUCOSE [id number] 07:59:00 Test Item Value Reference Range Interpretation Comments POC-GLUCOSE METER 81 mg/dL 70-110 TESTED AT [facility] 67[address] ([facility]) (test code = [facility] [address] 1538) COMPREHENSIVE METABOLIC [id number] 06:23:00 Test Item Value Reference Range Interpretation [...] S NOT APPLICABLE FOR DIALYSIS PATIEN TS. [id number] 06:17:00 Test Item Value Reference Range Interpretation Comments MAGNESIUM (BEAKER) (test code = 1.8 mg/dL 1.6-2.6 627) HEPATIC FUNCTION [id number] 06:17:00 Test Item Value Reference Range Interpretation [...] code = 779 U/L 6-55 H 347) [id number] 06:00:00 Test Item Value Reference Range Interpretation Comments FIBRINOGEN LEVEL (BEAKER) (test 390 mg/dl 225-434 code = 658) [id number] 06:00:00 Test Item Value Reference Range Interpretation Comments PARTIAL THROMBOPLASTIN TIME 40.2 seconds 22.5-36.0 H (BEAKER) (test code = 760) PROTHROMBIN [id number] 05:59:00 Test Item Value Reference Range Interpretation Comments PROTIME (BEAKER) (test code = 14.6 seconds 11.7-14.7 759) INR ([facility]) (test code = 370) 1.2 <=5.9 RECOMMENDED COUMADIN/WARFARIN INR THERAPY RANGESSTANDARD DOSE: 2.0 - 3.0 Includes: PROPHYLAXIS forvenous thrombosis, systemic embolization; TREATMENT for venous thrombosis and/or pulmonary embolus.HIGH RISK: Target INR is 2.5-3.5 for patients with mechanical heart valves.POCT-GLUCOSE [id number] 21:46:00 Test Item Value Reference Range Interpretation Comments POC-GLUCOSE METER 153 mg/dL 70-110 H TESTED AT [place] [address] ([facility]) (test code = [place] [facility] 1538) [address] POCT-GLUCOSE [id number] 18:47:00 Test Item Value Reference Range Interpretation Comments POC-GLUCOSE METER 181 mg/dL 70-110 H TESTED AT [place] [address] ([facility]) (test code = [place] [facility] 1538) [address] POCT-GLUCOSE [id number] 12:40:00 Test Item Value Reference Range Interpretation Comments POC-GLUCOSE METER 178 mg/dL 70-110 H TESTED AT [place] [address] ([facility]) (test code = [place] [facility] 1538) [address] POCT-GLUCOSE [id number] 07:51:00 Test Item Value Reference Range Interpretation Comments POC-GLUCOSE METER 166 mg/dL 70-110 H TESTED AT [facility] 67[address] (BEAKER) (test code = [place] 1539) [address] COMPREHENSIVE METABOLIC [id number] 03:26:00 Test Item Value Reference Range Interpretation [...] S NOT APPLICABLE FOR DIALYSIS PATIEN TS. [id number] 03:22:00 Test Item Value Reference Range Interpretation Comments MAGNESIUM (BEAKER) (test code = 1.4 mg/dL 1.6-2.6 L 627) HEPATIC FUNCTION [id number] 03:22:00 Test Item Value Reference Range Interpretation [...] code = 1009 U/L 6-55 H 347) [id number] 03:12:00 Test Item Value Reference Range Interpretation Comments AMMONIA (BEAKER) (test code = 348) 29 mol/L 18-72 [id number] 03:10:00 Test Item Value Reference Range Interpretation Comments PARTIAL THROMBOPLASTIN TIME 42.3 seconds 22.5-36.0 H (BEAKER) (test code = 760) PROTHROMBIN [id number] 03:09:00 Test Item Value Reference Range Interpretation Comments PROTIME (BEAKER) (test code = 16.4 seconds 11.7-14.7 H 759) INR (BEAKER) (test code = 370) 1.3 <=5.9 RECOMMENDED COUMADIN/WARFARIN INR THERAPY RANGESSTANDARD DOSE: 2.0 - 3.0 Includes: PROPHYLAXIS forvenous thrombosis, systemic embolization; TREATMENT for venous thrombosis and/or pulmonary embolus.HIGH RISK: Target INR is 2.5-3.5 for patients with mechanical heart valves.[id number] 03:09:00 Test Item Value Reference Range Interpretation Comments FIBRINOGEN LEVEL (BEAKER) (test 413 mg/dl 225-434 code = 658) CBC W/PLT COUNT & AUTO [id number] 03:09:00 Test Item Value Reference Range Interpretation [...] L 0.00-0.20 (test code = 417) 0.00POCT-GLUCOSE [id number] 22:33:00 Test Item Value Reference Range Interpretation Comments POC-GLUCOSE METER 230 mg/dL 70-110 H TESTED AT [facility] 6720 (BEAKER) (test code = [place] 1538) [address] POCT-GLUCOSE [id number] 18:17:00 Test Item Value Reference Range Interpretation Comments POC-GLUCOSE METER 222 mg/dL 70-110 H TESTED AT [facility] 6720 (BEAKER) (test code = [place] 1538) [address] COMPREHENSIVE METABOLIC [id number] 16:59:00 Test Item Value Reference Range Interpretation [...] PATIEN TS. PERIPHERAL BLOOD SMEAR - PATHOLOGIST [id number] 15:30:00 Test Item Value Reference Range Interpretation Comments RBC MORPHOLOGY Polychromasia (BEAKER) (test code = 2846) RBC MORPHOLOGY Anisocytosis (BEAKER) (test code = 21492) PERIPHERAL SMR REVIEW Cell counts confirmed (MADIE) (test code = 2640) [id number]-[id number] Josefina Lara M.D. ([facility]) (test code = (electronic signature) 4340) PROTHROMBIN [id number] 15:12:00 Test Item Value Reference Range Interpretation Comments PROTIME (MADIE) (test code = 16.6 seconds 11.7-14.7 H 759) INR ([facility]) (test code = 370) 1.4 <=5.9 RECOMMENDED COUMADIN/WARFARIN INR THERAPY RANGESSTANDARD DOSE: 2.0 - 3.0 Includes: PROPHYLAXIS forvenous thrombosis, systemic embolization; TREATMENT for venous thrombosis and/or pulmonary embolus.HIGH RISK: Target INR is 2.5-3.5 for patients with mechanical heart valves.ANTI-NUCLEAR ANTIBODY (IVETTE)2017-01-04 14:32:00 Test Item Value Reference Range Interpretation Comments ANTI-NUCLEAR ANTIBODY (IVETTE) ([facility] Negative Negative (test code = 418) POCT-GLUCOSE [id number] 12:47:00 Test Item Value Reference Range Interpretation Comments POC-GLUCOSE METER 212 mg/dL 70-110 H TESTED AT [facility] 6720 ([facility]) (test code = [place] [facility] 1538) [address] [id number] 12:34:00 Test Item Value Reference Range Interpretation Comments RPR SCREEN (MADIE) (test code = Nonreactive Nonreactive 420) CLOSTRIDIUM DIFFICILE TOXIN [id number] 10:12:00 Test Item Value Reference Range Interpretation Comments CLOSTRIDIUM DIFFICILE TOXIN, PCR Not Detected Not Detected ([email or web address] (test code = 1525) This qualitative real-time [...] Reference Range Change-Adult onlyNew: 60.0-150.0 Previous: 50.0-150.0POCT-GLUCOSE [id number] 06:40:00 Test Item Value Reference Range Interpretation Comments POC-GLUCOSE METER 167 mg/dL 70-110 H TESTED AT [facility] 6720 ([facility]) (test code = [place] 1538) [address] COMPREHENSIVE METABOLIC [id number] 04:08:00 Test Item Value Reference Range Interpretation [...] ESTIM ATED GFR. Specimen slightly ictericHEPATIC FUNCTION [id number] 04:06:00 Test Item Value Reference Range Interpretation [...] 1091 U/L 6-55 H 347) Specimen slightly gvyasuqZSBHYABBYJ3215-97-71 04:01:00 Test Item Value Reference Range Interpretation Comments FIBRINOGEN LEVEL (BEAKER) (test 379 mg/dl 225-434 code = 658) [id number] 04:01:00 Test Item Value Reference Range Interpretation Comments PARTIAL THROMBOPLASTIN TIME 40.7 seconds 22.5-36.0 H (BEAKER) (test code = 760) PROTHROMBIN TIME/[id number] 04:00:00 Test Item Value Reference Range Interpretation [...] L 0.00-0.20 (test code = 417) 0.00POCT-GLUCOSE [id number] 00:19:00 Test Item Value Reference Range Interpretation Comments POC-GLUCOSE METER 159 mg/dL 70-110 H TESTED AT [facility] 6720 ([facility]) (test code = [facility] 1538) [address] POCT-GLUCOSE [id number] 18:56:00 Test Item Value Reference Range Interpretation Comments POC-GLUCOSE METER 192 mg/dL 70-110 H TESTED AT [place] [address] ([facility]) (test code = [facility] 1538) [address] COMPREHENSIVE METABOLIC [id number] 16:55:00 Test Item Value Reference Range Interpretation [...] CALCULATE ESTIM ATED GFR. Specimen slightly ictericPROTHROMBIN TIME/[id number] 16:37:00 Test Item Value Reference Range Interpretation Comments PROTIME (BEAKER) (test code = 20.9 seconds 11.7-14.7 H 759) INR (BEAKER) (test code = 370) 1.8 <=5.9 RECOMMENDED COUMADIN/WARFARIN INR THERAPY RANGESSTANDARD DOSE: 2.0 - 3.0 Includes: PROPHYLAXIS forvenous thrombosis, systemic embolization; TREATMENT for venous thrombosis and/or pulmonary embolus.HIGH RISK: Target INR is 2.5-3.5 for patients with mechanical heart valves.HEPATITIS B SURFACE [id number] 14:05:00 Test Item Value Reference Range Interpretation Comments HEPATITIS B SURFACE ANTIBODY < mIU/mL <8.0 (BEAKER) (test code = 647) HEPATITIS B CORE ANTIBODY, [id number] 13:43:00 Test Item Value Reference Range Interpretation Comments HEPATITIS B CORE TOTAL ANTIBODY Nonreactive Nonreactive (BEAKER) (test code = 497) BLOOD GAS, [id number] 13:35:00 Test Item Value Reference Range Interpretation [...] code = 1819) 28.0 % URINALYSIS W/ [id number] 13:16:00 Test Item Value Reference Range Interpretation [...] 1584) SOURCE(BEAKER) (test code = Urine, [place] 7591) VITAMIN D, 21-[id number] 13:14:00 Test Item Value Reference Range Interpretation Comments VITAMIN D 25-OH (BEAKER) (test code = < ng/mL 13.0-47.8 L 2764) ALPHA FETOPROTEIN (AFP), TUMOR [id number] 13:06:00 Test Item Value Reference Range Interpretation Comments ALPHA-FETOPROTEIN (BEAKER) (test code < ng/mL <10.0 = 1094) Effective 05/08/2014: Reference Range ChangeNew: <10.0 Previous: 0.0-8.0 HEMOGLOBIN [id number] 13:05:00 Test Item Value Reference Range Interpretation Comments HEMOGLOBIN A1C (BEAKER) (test code = 7.6 % 4.3-6.1 H 368) CARCINOEMBRYONIC ANTIGEN (CEA)2017-01-03 12:59:00 Test Item Value Reference Range Interpretation Comments CARCINOEMBRYONIC ANTIGEN (BEAKER) 2.0 ng/mL 0.0-5.0 (test code = 685) [id number] 12:59:00 Test Item Value Reference Range Interpretation Comments FERRITIN (BEAKER) (test code = 1841 ng/mL 5-275 H 361) Effective 05/08/2014: Reference Range ChangeNew: Male 5-275 Previous: Male 22-322 Female 5-275 Female [id number] 12:58:00 Test Item Value Reference Range Interpretation Comments T4 TOTAL (BEAKER) (test code = 895) 4.5 ug/dL 4.9-11.7 L [id number] 12:58:00 Test Item Value Reference Range Interpretation Comments THYROID STIMULATING HORMONE 1.79 uIU/mL 0.35-4.94 (BEAKER) (test code = 772) [id number] 12:58:00 Test Item Value Reference Range Interpretation Comments T3 TOTAL (BEAKER) (test code = 656) 34 ng/dL 48-159 L Effective 05/08/2014: Reference Range ChangeNew: 48-159 Previous: 60-181 CALCIUM, [id number] 12:47:00 Test Item Value Reference Range Interpretation Comments CALCIUM IONIZED (BEAKER) (test 1.05 mmol/L 1.12-1.27 L code = 698) PH, BLOOD (BEAKER) (test code = 7.43 1810) [id number] 12:42:00 Test Item Value Reference Range Interpretation [...] % 20-55 (test code = 2590) URIC [id number] 12:40:00 Test Item Value Reference Range Interpretation Comments URIC ACID (BEAKER) (test code = 16.0 mg/dL 2.6-7.2 H 773) Specimen slightly ictericLIPID [id number] 12:40:00 Test Item Value Reference Range Interpretation [...] 160-189 Very High >=190 Specimen slightly ictericBILIRUBIN, [id number] 12:40:00 Test Item Value Reference Range Interpretation Comments BILIRUBIN DIRECT (BEAKER) (test 2.4 mg/dL 0.1-0.5 H code = 706) GAMMA GLUTAMYL TRANSFERASE (GGT)2017-01-03 12:40:00 Test Item Value Reference Range Interpretation Comments GAMMA GLUTAMYL TRANSFERASE (BEAKER) 53 U/L 9-64 (test code = 364) Specimen slightly [id number] 12:39:00 Test Item Value Reference Range Interpretation Comments ETHANOL (BEAKER) (test code = 400) < mg/dL <=10 SCREEN, [id number] 12:36:00 Test Item Value Reference Range Interpretation Comments TEST URINE (BEAKER) (test Negative code = 583) POCT-GLUCOSE [id number] 12:34:00 Test Item Value Reference Range Interpretation Comments POC-GLUCOSE METER 189 mg/dL 70-110 H TESTED AT [facility] 6720 (BEILIANA) (test code = [place] 1538) [address] HIV-1 ANTIGEN WITH HIV-1/2 [id number] 11:58:00 Test Item Value Reference Range Interpretation Comments HIV-1 ANTIGEN WITH HIV 1\\T\\2 Nonreactive Nonreactive ANTIBODY (2) (BEAKER) (test code = 2586) TROPONIN [id number] 09:44:00 Test Item Value Reference Range Interpretation [...] Previous: 0.0-4.9CK-MB Reference Range:<6.7 Normal6.7-10.0 Borderline>10.0 AbnormalACETAMINOPHEN [id number] 08:31:00 Test Item Value Reference Range Interpretation Comments ACETAMINOPHEN LEVEL (BEAKER) (test < ug/mL 10.0-30.0 L code = 344) TROPONIN [id number] 05:53:00 Test Item Value Reference Range Interpretation [...] acute neurological disease, and persistent tachyarrhythmia.BASIC METABOLIC [id number] 05:53:00 Test Item Value Reference Range Interpretation [...] TO CALCULA TE ESTIMATED GFR. Specimen slightly [id number] 05:52:00 Test Item Value Reference Range Interpretation Comments PHOSPHORUS (BEAKER) (test code = 5.7 mg/dL 2.3-4.7 H 604) HEPATIC FUNCTION [id number] 05:52:00 Test Item Value Reference Range Interpretation [...] Specimen slightly ictericCREATINE KINASE (CK), TOTAL AND [id number] 05:52:00 Test Item Value Reference Range Interpretation Comments CREATINE KINASE TOTAL (BEAKER) 341 U/L 29-200 H (test code = 380) CREATINE KINASE-MB (BEAKER) (test 5.4 ng/mL 0.0-6.6 code = 750) CREATINE KINASE-MB INDEX (BEAKER) 1.6 % (test code = 395) Effective 05/08/2014: CK-MB Reference Range ChangeNew: 0.0-6.6 Previous: 0.0-4.9CK-MB Reference Range:<6.7 Normal6.7-10.0 Borderline>10.0 AbnormalCBC W/PLT COUNT & AUTO [id number] 05:48:00 Test Item Value Reference Range Interpretation [...] K/ L 0.00-0.20 (test code = 417) 0.20EKLURLJALX6168-85-89 05:09:00 Test Item Value Reference Range Interpretation Comments FIBRINOGEN LEVEL (BEAKER) (test 427 mg/dl 225-434 code = 658) [id number] 05:09:00 Test Item Value Reference Range Interpretation Comments PARTIAL THROMBOPLASTIN TIME 36.2 seconds 22.5-36.0 H (BEAKER) (test code = 760) PROTHROMBIN [id number] 05:08:00 Test Item Value Reference Range Interpretation Comments PROTIME (BEAKER) (test code = 22.8 seconds 11.7-14.7 H 759) INR (BEAKER) (test code = 370) 2.0 <=5.9 RECOMMENDED COUMADIN/WARFARIN INR THERAPY RANGESSTANDARD DOSE: 2.0 - 3.0 Includes: PROPHYLAXIS forvenous thrombosis, systemic embolization; TREATMENT for venous thrombosis and/or pulmonary embolus.HIGH RISK: Target INR is 2.5-3.5 for patients with mechanical heart valves.HEPATITIS PANEL, [id number] 03:40:00 Test Item Value Reference Range Interpretation Comments HEPATITIS A IGM ANTIBODY (BEAKER) Nonreactive Nonreactive (test code = 498) HEPATITIS B CORE IGM ANTIBODY Nonreactive Nonreactive (BEAKER) (test code = 645) HEPATITIS C ANTIBODY (BEAKER) Nonreactive Nonreactive (test code = 367) HEPATITIS B SURFACE ANTIGEN (2) Nonreactive Nonreactive (BEAKER) (test code = 2585) CREATININE, RANDOM [id number] 03:18:00 Test Item Value Reference Range Interpretation Comments CREATININE URINE (BEAKER) (test 118.7 mg/dL code = 375) Reference Range: No NormalsSODIUM, RANDOM [id number] 03:18:00 Test Item Value Reference Range Interpretation Comments SODIUM URINE (BEAKER) (test code = 60 meq/L 243) Reference Range: No NormalsUREA NITROGEN, RANDOM [id number] 03:18:00 Test Item Value Reference Range Interpretation Comments UREA NITROGEN URINE (BEAKER) (test 303 mg/dL code = 538) Reference Range: No [id number] 03:07:00 Test Item Value Reference Range Interpretation Comments AMMONIA (BEAKER) (test code = 348) 48 mol/L 18-72 R-[id number] 02:57:00 Test Item Value Reference Range Interpretation [...] within 95-100% range. URINALYSIS W/ REFLEX URINE [id number] 02:53:00 Test Item Value Reference Range Interpretation [...] = 514) SOURCE(BEAKER) (test code = 2795) [id number] 02:49:00 Test Item Value Reference Range Interpretation Comments PARTIAL THROMBOPLASTIN TIME 39.4 seconds 22.5-36.0 H (BEAKER) (test code = 760) PROTHROMBIN TIME/[id number] 02:48:00 Test Item Value Reference Range Interpretation Comments PROTIME (BEAKER) (test code = 22.0 seconds 11.7-14.7 H 759) INR (BEAKER) (test code = 370) 1.9 <=5.9 RECOMMENDED COUMADIN/WARFARIN INR THERAPY RANGESSTANDARD DOSE: 2.0 - 3.0 Includes: PROPHYLAXIS forvenous thrombosis, systemic embolization; TREATMENT for venous thrombosis and/or pulmonary embolus.HIGH RISK: Target INR is 2.5-3.5 for patients with mechanical heart valves.[id number] 02:48:00 Test Item Value Reference Range Interpretation Comments FIBRINOGEN LEVEL (BEAKER) (test 421 mg/dl 225-434 code = 658) BLOOD GAS, [id number] 02:43:00 Test Item Value Reference Range Interpretation [...] 21.0 % CBC W/PLT COUNT & AUTO [id number] 02:43:00 Test Item Value Reference Range Interpretation [...] code = 417) 0.00LACTIC ACID, VENOUS, WHOLE [id number] 02:35:00 Test Item Value Reference Range Interpretation Comments LACTATE BLOOD VENOUS (2) (BEAKER) 0.8 mmol/L 0.5-2.2 (test code = 2872) Effective 10/23/2015: Units/Reference Range ChangeNew: 0.5-2.2 mmol/L Previous: 5-20 mg/dLSpecimen slightly stgwyiaAHGTSNNFYDAU6097-98-10 11:32:00 Test Item Value Reference Range Interpretation Comments AGAP (test code = AGAP) 14.6 10.0-20.0 [facility]LpfchfhDMEVGMNKAZZY0342-15-82 11:32:00 Test Item Value Reference Range Interpretation Comments eGFR (test code = eGFR) 33 [facility] HospitalFiisljeTXUPXPCSKVSG6935-96-77 11:32:00 Test Item Value Reference Range Interpretation Comments Calcium Lvl (test code = Calcium Lvl) 8.3 8.5-10.5 [facility] HospitalIygjrajJXQONLYZIKIK8617-17-79 11:32:00 Test Item Value Reference Range Interpretation Comments Glucose Lvl (test code = Glucose Lvl) 81 70-99 [facility] HospitalBewvyvlTDUSQKSUPIQM6629-02-26 11:32:00 Test Item Value Reference Range Interpretation Comments Creatinine Lvl (test code = Creatinine 1.95 0.50-1.40 Lvl) [facility] HospitalSfneunqFJDXLAKNBTVD8983-16-41 11:32:00 Test Item Value Reference Range Interpretation Comments BUN (test code = BUN) 55 7-22 [facility] HospitalOnyuthyTTNILEKUVXCU2294-13-21 11:32:00 Test Item Value Reference Range Interpretation Comments CO2 (test code = CO2) 19 24-32 [facility] HospitalAfmgjkuUCCGXZZQSIIY7595-99-55 11:32:00 Test Item Value Reference Range Interpretation Comments Chloride Lvl (test code = Chloride Lvl) 110 95-109 [facility] HospitalTzsoajmTDYDHPNQXADE7697-07-86 11:32:00 Test Item Value Reference Range Interpretation Comments Sodium Lvl (test code = Sodium Lvl) 139 135-145 [facility]ln[facility]zFSVQQMMWRSVE0175-70-00 11:32:00 Test Item Value Reference Range Interpretation Comments Potassium Lvl (test code = Potassium 4.6 3.5-5.1 Lvl) [facility] CenterExrxbnlMYYWHEFOUY0715-31-08 11:32:00 Test Item Value Reference Range Interpretation Comments Lymphocytes (test code = Lymphocytes) 30.4 20.0-40.0 [facility] CenterZcdxsvnJIBQINXIPX9834-56-51 11:32:00 Test Item Value Reference Range Interpretation Comments Eosinophils (test code = 4.5 See_Comment [A utomated message] The Eosinophils) system which ge nerated this result tra nsmitted reference range : <=4.0. The reference r elo was not used to int erpret this result as normal/abnormal . [facility] CenterJynlgwfPRRARACAWZ5329-99-41 11:32:00 Test Item Value Reference Range Interpretation Comments Monocytes (test code = Monocytes) 13.7 2.0-12.0 [facility] CenterXpklqjaUNBIHPHFMT2231-35-97 11:32:00 Test Item Value Reference Range Interpretation Comments Segs-Bands # (test code = Segs-Bands #) 2.6 1.5-8.1 [facility] CenterSpxjrbkNDOCCHLDHA1389-58-58 11:32:00 Test Item Value Reference Range Interpretation Comments Basophils (test code = 0.7 See_Comment [Aut omated message] The Basophils) system which ge nerated this result tra nsmitted reference range : <=1.0. The reference r leo was not used to int erpret this result as normal/abnormal . [facility] CenterZyadvwdCGAGBDMKSM9240-94-83 11:32:00 Test Item Value Reference Range Interpretation Comments Monocytes # (test code 0.7 See_Comment [Aut omated message] The = Monocytes #) system which generated this result tra nsmitted reference range : <=0.8. The reference r leo was not used to int erpret this result as normal/abnormal . [facility] CenterJfdsbruTSSNEMRMKJ0250-27-32 11:32:00 Test Item Value Reference Range Interpretation Comments Lymphocytes # (test code = Lymphocytes 1.6 1.0-5.5 #) [facility] CenterAxliqnlLZTCKVJJTI2599-99-33 11:32:00 Test Item Value Reference Range Interpretation Comments Eosinophils # (test code 0.2 See_Comment [A utomated message] The = Eosinophils #) system B[employer] generated this result tra nsmitted reference range : <=0.5. The reference r leo was not used to int erpret this result as normal/abnormal . [facility] CenterPbjmadwHBPCKCESVE2171-95-22 11:32:00 Test Item Value Reference Range Interpretation Comments Segs (test code = Segs) 50.7 45.0-75.0 [facility] CenterUzdwaicJYRKGEFURJ0144-59-00 11:32:00 Test Item Value Reference Range Interpretation [...] iron deficiency anemia, and renal disease. CPT: 52086 [facility] CenterLbwqktnGQWNKYCFES4129-35-65 11:32:00 Test Item Value Reference Range Interpretation Comments Hct (test code = Hct) 28.1 36.0-48.0 [facility] CenterQobfcxqIXSOHCJFHQ0419-76-71 11:32:00 Test Item Value Reference Range Interpretation Comments RBC (test code = RBC) 3.39 4.20-5.40 [facility] CenterVvysyyyFQZNVSDIWD9097-71-44 11:32:00 Test Item Value Reference Range Interpretation Comments Hgb (test code = Hgb) 8.9 12.0-16.0 [facility] CenterXsmdueeVMDJACEOPG5876-90-25 11:32:00 Test Item Value Reference Range Interpretation Comments WBC (test code = WBC) 5.1 3.7-10.4 [facility] CenterFmzquahSLTHMBTLJQ3661-11-11 11:32:00 Test Item Value Reference Range Interpretation Comments MPV (test code = MPV) 11.3 7.4-10.4 [facility] CenterRzcburiVPMEHTFYIQ6444-04-89 11:32:00 Test Item Value Reference Range Interpretation Comments Platelet (test code = Platelet) 118 133-450 [facility] CenterSjzqjaxQKCMAVTNNF7544-91-51 11:32:00 Test Item Value Reference Range Interpretation Comments MCHC (test code = MCHC) 31.8 32.0-36.0 [facility] CenterSlhyaqbCPTXFYNELV4563-63-69 11:32:00 Test Item Value Reference Range Interpretation Comments RDW (test code = RDW) 18.0 11.5-14.5 [facility] CenterCgbzugjYFVCEKSAYM8004-32-27 11:32:00 Test Item Value Reference Range Interpretation Comments MCV (test code = MCV) 83.0 80.0-98.0 [facility] CenterXjublacXWYUODYADJ9729-70-13 11:32:00 Test Item Value Reference Range Interpretation Comments MCH (test code = MCH) 26.4 pg 27.0-31.0 [facility]ZxgiosaXGLENFAOAC1566-63-69 11:32:00 Test Item Value Reference Range Interpretation Comments C3 Complement (test code = C3 137 88-201 Complement) [facility] HospitalHdfntvsRTCAYPWXVU7456-43-86 11:32:00 Test Item Value Reference Range Interpretation Comments HIV. (test code = Negative *NA*(07/30/16 HIV.) 5:32 AM) [facility] CenterLcgbsidHMFNPGZVNL7831-60-80 11:05:00 Test Item Value Reference Range Interpretation [...] iron deficiency anemia, and renal disease. CPT: 35048 [facility] HospitalZtbcnmuJHYTZKMIEF1067-53-97 11:05:00 Test Item Value Reference Range Interpretation Comments HIV. (test code = Negative *NA*(07/29/16 HIV.) 5:05 AM) [facility] HospitalYmprxqbCRULGSAYTR8620-50-04 11:05:00 Test Item Value Reference Range Interpretation Comments C3 Complement (test code = C3 92 88-201 Complement) [facility]2017-02-07 15:50:00 Test Item Value Reference Range Interpretation Comments eGFR (test code = eGFR) 25 [facility]2017-02-07 15:50:00 Test Item Value Reference Range Interpretation Comments BUN (test code = BUN) 55 7-22 [facility]2017-02-07 15:50:00 Test Item Value Reference Range Interpretation Comments CO2 (test code = CO2) 23 24-32 [facility]2017-02-07 15:50:00 Test Item Value Reference Range Interpretation Comments Chloride Lvl (test code = Chloride Lvl) 109 95-109 [facility]2017-02-07 15:50:00 Test Item Value Reference Range Interpretation Comments Glucose Lvl (test code = Glucose Lvl) 101 70-99 [facility]2017-02-07 15:50:00 Test Item Value Reference Range Interpretation Comments Potassium Lvl (test code = Potassium 4.0 3.5-5.1 Lvl) [facility]2017-02-07 15:50:00 Test Item Value Reference Range Interpretation Comments Sodium Lvl (test code = Sodium Lvl) 141 135-145 [facility]2017-02-07 15:50:00 Test Item Value Reference Range Interpretation Comments AGAP (test code = AGAP) 13.0 10.0-20.0 [facility]2017-02-07 15:50:00 Test Item Value Reference Range Interpretation Comments Calcium Lvl (test code = Calcium Lvl) 7.7 8.5-10.5 [facility]2017-02-07 15:50:00 Test Item Value Reference Range Interpretation Comments Creatinine Lvl (test code = Creatinine 2.49 0.50-1.40 Lvl) [facility] CenterUjfbvcjZEOGEXWDYM7788-11-28 15:50:00 Test Item Value Reference Range Interpretation Comments PT (test code = PT) 14.8 s 12.0-14.7 [facility] CenterRrziwkhGIRYTOTCGT2844-88-29 15:50:00 Test Item Value Reference Range Interpretation Comments PTT (test code = PTT) 40.8 s 22.9-35.8 [facility] CenterPlhzrnrHGWHRMJNCG9939-36-86 15:50:00 Test Item Value Reference Range Interpretation Comments INR (test code = INR) 1.14 0.85-1.17 [facility]YyztdcyOQPCYFJFWZ8431-31-80 15:50:00 Test Item Value Reference Range Interpretation Comments C3 Complement (test code = C3 94 88-201 Complement) [facility] CenterHzhhbrdJPLUCQITKI1511-28-05 10:35:00 Test Item Value Reference Range Interpretation Comments Lymphocytes # (test code = Lymphocytes 1.7 1.0-5.5 #) [place] 388487-02-07 10:35:00 Test Item Value Reference Range Interpretation Comments Segs-Bands # (test code = Segs-Bands #) 2.7 1.5-8.1 [facility] CenterSszktzyFNZQNFIMTB0608-70-10 10:35:00 Test Item Value Reference Range Interpretation Comments Eosinophils # (test code 0.1 See_Comment [A utomated message] The = Eosinophils #) system whic h generated this result tra nsmitted reference range : <=0.5. The reference r leo was not used to int erpret this result as normal/abnormal . [facility] CenterStrjftkBMZBZVXFEC4027-25-44 10:35:00 Test Item Value Reference Range Interpretation Comments Monocytes # (test code 0.7 See_Comment [Aut omated message] The = Monocytes #) system which generated this result tra nsmitted reference range : <=0.8. The reference r leo was not used to int erpret this result as normal/abnormal . [facility] CenterVfhesilDJKBDYZYAY2256-57-64 10:35:00 Test Item Value Reference Range Interpretation Comments Segs (test code = Segs) 51.3 45.0-75.0 [facility] CenterFmczmxrWKFZENDOMA3443-60-40 10:35:00 Test Item Value Reference Range Interpretation Comments Lymphocytes (test code = Lymphocytes) 31.6 20.0-40.0 [facility] CenterXezkibdYFSCNSLDPU2855-18-28 10:35:00 Test Item Value Reference Range Interpretation Comments Monocytes (test code = Monocytes) 14.1 2.0-12.0 [facility] CenterLgtlqjxFISHWLGLFT9878-27-02 10:35:00 Test Item Value Reference Range Interpretation Comments Eosinophils (test code = 2.6 See_Comment [A utomated message] The Eosinophils) system which ge nerated this result tra nsmitted reference range : <=4.0. The reference r leo was not used to int erpret this result as normal/abnormal . [facility] CenterRdeprdrHIKAFFKIYP8725-40-02 10:35:00 Test Item Value Reference Range Interpretation Comments Basophils (test code = 0.4 See_Comment [Aut omated message] The Basophils) system which ge nerated this result tra nsmitted reference range : <=1.0. The reference r leo was not used to int erpret this result as normal/abnormal . [facility]MtcyqkqQLNWKLAAWB1423-17-[facility] 10:35:00 Test Item Value Reference Range Interpretation Comments PB Smear Path Peripheral blood smear shows (test code = PB hypochromic normocytic Smear Path) anemia with anisopoikilocytsosis, no increase in schistocytes, slight polychromasia, a few estella cells, moderate thrombocytopenia. Impression: (1) no evidence of microangiopathic hemolysis, (2) RBC morphology is suggestive of anemia of chronic disease or iron deficiency anemia, and renal disease. CPT: 50095 [facility] CenterYdjbstjGTBMHLXLWQ7539-98-40 10:35:00 Test Item Value Reference Range Interpretation Comments Hct (test code = Hct) 29.3 36.0-48.0 [place] [address]-02-07 10:35:00 Test Item Value Reference Range Interpretation Comments Hgb (test code = Hgb) 9.2 12.0-16.0 [place] [address]-02-07 10:35:00 Test Item Value Reference Range Interpretation Comments RBC (test code = RBC) 3.54 4.20-5.40 [facility] CenterDapyxuyDVCNMJESFA3349-54-20 10:35:00 Test Item Value Reference Range Interpretation Comments WBC (test code = WBC) 5.3 3.7-10.4 [facility] CenterFpqavrxXGVWOTKPUP3165-22-55 10:35:00 Test Item Value Reference Range Interpretation Comments Platelet (test code = Platelet) 87 133-450 [facility] CenterArltkmqCPHKEVJDYS9663-22-29 10:35:00 Test Item Value Reference Range Interpretation Comments MCHC (test code = MCHC) 31.4 32.0-36.0 [facility] CenterKmbbamcQRZXJJFZCT8128-28-12 10:35:00 Test Item Value Reference Range Interpretation Comments RDW (test code = RDW) 17.9 11.5-14.5 [facility] CenterCoxiivdUKZRQIVCQH2763-49-75 10:35:00 Test Item Value Reference Range Interpretation Comments MPV (test code = MPV) 10.9 7.4-10.4 [facility] CenterIboppodGBJJIABMSX9970-01-09 10:35:00 Test Item Value Reference Range Interpretation Comments MCH (test code = MCH) 26.0 pg 27.0-31.0 [facility] CenterIyxlhowPYFZUMJWMK3804-27-64 10:35:00 Test Item Value Reference Range Interpretation Comments MCV (test code = MCV) 82.8 80.0-98.0 [facility]tythkeHNTPQTKOQW7371-99-17 10:35:00 Test Item Value Reference Range Interpretation Comments HIV. (test code = Negative *NA*(07/28/16 HIV.) 4:35 AM) [facility] JIDGZQO4459-95-41 10:22:00 Test Item Value Reference Range Interpretation Comments Total CK (test code = Total CK) 190 12-191 [facility]2017-02-06 10:22:00 Test Item Value Reference Range Interpretation Comments Calcium Lvl (test code = Calcium Lvl) 7.8 8.5-10.5 [facility]2017-02-06 10:22:00 Test Item Value Reference Range Interpretation Comments CO2 (test code = CO2) 21 24-32 [facility]2017-02-06 10:22:00 Test Item Value Reference Range Interpretation Comments Sodium Lvl (test code = Sodium Lvl) 140 135-145 [facility]2017-02-06 10:22:00 Test Item Value Reference Range Interpretation Comments Potassium Lvl (test code = Potassium 3.8 3.5-5.1 Lvl) [facility]2017-02-06 10:22:00 Test Item Value Reference Range Interpretation Comments Chloride Lvl (test code = Chloride Lvl) 106 95-109 [facility]2017-02-06 10:22:00 Test Item Value Reference Range Interpretation Comments Bili Total (test code = Bili Total) 0.4 0.2-1.3 [facility]2017-02-06 10:22:00 Test Item Value Reference Range Interpretation Comments Alk Phos (test code = Alk Phos) 74 39-136 [facility]2017-02-06 10:22:00 Test Item Value Reference Range Interpretation Comments eGFR (test code = eGFR) 19 [facility]2017-02-06 10:22:00 Test Item Value Reference Range Interpretation Comments Total Protein (test code = Total 5.2 6.4-8.4 Protein) [facility]2017-02-06 10:22:00 Test Item Value Reference Range Interpretation Comments ALT (test code = ALT) 822 See_Comment [Auto mated message] The system which ge nerated this result transmit rohit reference range : <=65. The reference range was not used to interpr et this result as reji l/abnormal. [facility]2017-02-06 10:22:00 Test Item Value Reference Range Interpretation Comments AST (test code = AST) 205 See_Comment [Auto mated message] The system which ge nerated this result transmit rohit reference range : <=37. The reference range was not used to interpr et this result as reji l/abnormal. [facility]2017-02-06 10:22:00 Test Item Value Reference Range Interpretation Comments Albumin Lvl (test code = Albumin Lvl) 1.8 3.5-5.0 [facility]2017-02-06 10:22:00 Test Item Value Reference Range Interpretation Comments BUN (test code = BUN) 54 7-22 [facility]2017-02-06 10:22:00 Test Item Value Reference Range Interpretation Comments Glucose Lvl (test code = Glucose Lvl) 143 70-99 [facility]2017-02-06 10:22:00 Test Item Value Reference Range Interpretation Comments Creatinine Lvl (test code = Creatinine 3.11 0.50-1.40 Lvl) [facility]2017-02-06 10:22:00 Test Item Value Reference Range Interpretation Comments B/C Ratio (test code = B/C Ratio) 17 6-25 [facility]2017-02-06 10:22:00 Test Item Value Reference Range Interpretation Comments AGAP (test code = AGAP) 16.8 10.0-20.0 [facility]2017-02-06 10:22:00 Test Item Value Reference Range Interpretation Comments Globulin (test code = Globulin) 3.4 2.7-4.2 [facility]2017-02-06 10:22:00 Test Item Value Reference Range Interpretation Comments A/G Ratio (test code = A/G Ratio) 0.5 0.7-1.6 [facility]2017-02-06 10:22:00 Test Item Value Reference Range Interpretation Comments Magnesium Lvl (test code = Magnesium 2.0 1.8-2.4 Lvl) [facility]2017-02-06 10:22:00 Test Item Value Reference Range Interpretation Comments Phosphorus (test code = Phosphorus) 3.7 2.5-4.5 [facility] CenterYngtfgbPFGXFMMJTL1630-70-39 10:22:00 Test Item Value Reference Range Interpretation Comments RDW (test code = RDW) 17.7 11.5-14.5 [facility] CenterGpzawveYPVFIQUELU9312-03-54 10:22:00 Test Item Value Reference Range Interpretation Comments MCHC (test code = MCHC) 32.9 32.0-36.0 [facility] CenterPdkliqtJYWQCCRPKE5658-21-05 10:22:00 Test Item Value Reference Range Interpretation Comments Hct (test code = Hct) 25.4 36.0-48.0 [facility] CenterMjnstfzBLUKPFEJLT7186-14-60 10:22:00 Test Item Value Reference Range Interpretation Comments MCH (test code = MCH) 26.4 pg 27.0-31.0 [facility] CenterPmmunqlRRTSGPYSIK7222-09-29 10:22:00 Test Item Value Reference Range Interpretation Comments MCV (test code = MCV) 80.3 80.0-98.0 [facility] CenterBlkwmkdOZAXWCLSUU4172-52-65 10:22:00 Test Item Value Reference Range Interpretation Comments MPV (test code = MPV) 11.4 7.4-10.4 [facility] CenterDdjsgtmITXNVSFFPU2885-13-72 10:22:00 Test Item Value Reference Range Interpretation Comments Platelet (test code = Platelet) 74 133-450 [facility] CenterLqddvloOCMIPQYBIM2837-68-66 10:22:00 Test Item Value Reference Range Interpretation Comments RBC (test code = RBC) 3.16 4.20-5.40 [facility] CenterNvnlkjfMNHAKJDFWF1259-89-89 10:22:00 Test Item Value Reference Range Interpretation Comments WBC (test code = WBC) 5.3 3.7-10.4 [facility] CenterItyyvviSUMEWQEBDF4569-46-11 10:22:00 Test Item Value Reference Range Interpretation Comments Hgb (test code = Hgb) 8.4 12.0-16.0 [facility] CenterZtnkiqoVJXPWWVVCN6483-03-79 10:22:00 Test Item Value Reference Range Interpretation Comments Monocytes (test code = Monocytes) 14.5 2.0-12.0 [facility] CenterWbqvlzaXHYPPUEFOG2381-70-31 10:22:00 Test Item Value Reference Range Interpretation Comments Lymphocytes (test code = Lymphocytes) 29.8 20.0-40.0 [facility] CenterWjuvwauHFNIXRECJQ1514-44-48 10:22:00 Test Item Value Reference Range Interpretation Comments Eosinophils # (test code 0.1 See_Comment [A utomated message] The = Eosinophils #) system whic h generated this result tra nsmitted reference range : <=0.5. The reference r leo was not used to int erpret this result as normal/abnormal . [facility] CenterCditrqsZEAPLXJMHP1575-62-67 10:22:00 Test Item Value Reference Range Interpretation Comments Monocytes # (test code 0.8 See_Comment [Aut omated message] The = Monocytes #) system which generated this result tra nsmitted reference range : <=0.8. The reference r leo was not used to int erpret this result as normal/abnormal . [facility] CenterFsxvunvHQBAMLLKVV7548-21-02 10:22:00 Test Item Value Reference Range Interpretation Comments Segs-Bands # (test code = Segs-Bands #) 2.9 1.5-8.1 [facility] CenterFckejilJASSASLFOX1952-24-02 10:22:00 Test Item Value Reference Range Interpretation Comments Lymphocytes # (test code = Lymphocytes 1.6 1.0-5.5 #) [facility] CenterUpdtugdGDPHDGRUJA6982-17-58 10:22:00 Test Item Value Reference Range Interpretation Comments Basophils (test code = 0.4 See_Comment [Aut omated message] The Basophils) system which ge nerated this result tra nsmitted reference range : <=1.0. The reference r leo was not used to int erpret this result as normal/abnormal . [facility] CenterActfcrqGPZZETYXPZ5074-66-59 10:22:00 Test Item Value Reference Range Interpretation Comments Eosinophils (test code = 1.2 See_Comment [A utomated message] The Eosinophils) system which ge nerated this result tra nsmitted reference range : <=4.0. The reference r leo was not used to int erpret this result as normal/abnormal . [facility] CenterVmxipruKCAESVGAOQ6786-85-37 10:22:00 Test Item Value Reference Range Interpretation Comments Segs (test code = Segs) 54.1 45.0-75.0 [facility] HVQPRFNKE4592-12-24 10:22:00 Test Item Value Reference Range Interpretation Comments Hgb A1C (test code = Hgb A1C) 8.9 [facility] [id number] 17:40:00 Test Item Value Reference Range Interpretation Comments Total CK (test code = Total CK) 344 12-191 [facility]bxivvbYCMQOLUMXV3962-53-66 17:40:00 Test Item Value Reference Range Interpretation Comments IVETTE (test code = IVETTE) Positive *ABN*(07/26/16 11:40 AM) [facility] HospitalNsyaffpCPVWKSPIYY1028-35-29 17:40:00 Test Item Value Reference Range Interpretation Comments 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 [facility] HospitalBgpytybSGDDTYBFAZ7059-41-01 17:40:00 Test Item Value Reference Range Interpretation Comments SS-B (La) Ab (test code = SS-B (La) Ab) no gt [facility] HospitalZbbqwgdADVZZYMJTO7731-53-97 17:40:00 Test Item Value Reference Range Interpretation Comments SS-A (Ro) Ab (test code = SS-A (Ro) Ab) no gt [facility] EumyjjjTMYXSAZJUI4793-82-67 17:40:00 Test Item Value Reference Range Interpretation Comments DNA Ab (DS) (test Negative (07/26/16 11:40 code = DNA Ab (DS)) AM) [facility] HospitalQhiwzhkIJEMXCDXFG9379-92-91 17:40:00 Test Item Value Reference Range Interpretation Comments IVETTE Titer (test code = 1:40 *ABN*(07/26/16 IVETTE Titer) 11:40 AM) [facility] [id number] 17:40:00 Test Item Value Reference Range Interpretation Comments U Sodium (test code = U Sodium) 21 [facility] HospitalUjsjmhhVZXZVAEDVR8919-12-99 14:00:00 Test Item Value Reference Range Interpretation Comments INR (test code = INR) 1.11 0.85-1.17 [facility] HospitalAnpjawhJQBEKFWDTT1300-83-14 14:00:00 Test Item Value Reference Range Interpretation Comments PT (test code = PT) 14.5 s 12.0-14.7 [facility] HospitalZkkikjuVHPEMNMNVU7217-83-20 14:00:00 Test Item Value Reference Range Interpretation Comments Hep A IgM (test code Negative *NA*(07/26/16 = Hep A IgM) 8:00 AM) [facility]aLyzfddcLLBLVPLVDE4907-42-05 14:00:00 Test Item Value Reference Range Interpretation Comments Hep B Core IgM (test Negative *NA*(07/26/16 code = Hep B Core 8:00 AM) IgM) [facility]GIWKCDRW7946-91-58 14:00:00 Test Item Value Reference Range Interpretation Comments Hep C Ab (test code = Negative *NA*(07/26/16 Hep C Ab) 8:00 AM) [facility]aEbeyfblZHYHTXUEQW9052-65-71 14:00:00 Test Item Value Reference Range Interpretation Comments Hep Bs Ag (test code Negative *NA*(07/26/16 = Hep Bs Ag) 8:00 AM) [facility]2017-02-05 10:42:00 Test Item Value Reference Range Interpretation Comments B/C Ratio (test code = B/C Ratio) 17 6-25 [facility]2017-02-05 10:42:00 Test Item Value Reference Range Interpretation Comments ALT (test code = ALT) 1232 See_Comment [Auto mated message] The system which ge nerated this result transmit rohit reference range : <=65. The reference range was not used to interpr et this result as reji l/abnormal. [facility]aSportXast [id number] 10:42:00 Test Item Value Reference Range Interpretation Comments A/G Ratio (test code = A/G Ratio) 0.5 0.7-1.6 [facility]2017-02-05 10:42:00 Test Item Value Reference Range Interpretation Comments Bili Total (test code = Bili Total) 0.3 0.2-1.3 [facility]2017-02-05 10:42:00 Test Item Value Reference Range Interpretation Comments Alk Phos (test code = Alk Phos) 79 39-136 [facility]2017-02-05 10:42:00 Test Item Value Reference Range Interpretation Comments AST (test code = AST) 586 See_Comment [Auto mated message] The system which ge nerated this result transmit rohit reference range : <=37. The reference range was not used to interpr et this result as reji l/abnormal. [facility] [id number] 10:42:00 Test Item Value Reference Range Interpretation Comments Total Protein (test code = Total 5.5 6.4-8.4 Protein) [facility] [id number] 10:42:00 Test Item Value Reference Range Interpretation Comments Globulin (test code = Globulin) 3.7 2.7-4.2 [facility]2017-02-05 10:42:00 Test Item Value Reference Range Interpretation Comments Albumin Lvl (test code = Albumin Lvl) 1.8 3.5-5.0 [facility] [id number] 10:42:00 Test Item Value Reference Range Interpretation Comments Magnesium Lvl (test code = Magnesium 2.1 1.8-2.4 Lvl) [facility] CenterDxlfcccSUSBZSQKFL5542-48-70 10:42:00 Test Item Value Reference Range Interpretation Comments Acanthocyte (test code = Acanthocyte) Slight [facility] CenterRijrsbyVBYSXHUWZE9043-74-47 10:42:00 Test Item Value Reference Range Interpretation Comments Rouleaux (test code = Present *ABN*(07/26/16 Rouleaux) 4:42 AM) [facility] CenterMzhnjyyLANMJYAUOC6412-76-80 10:42:00 Test Item Value Reference Range Interpretation Comments Anisocyte (test code = 1+ *ABN*(07/26/16 4:42 Anisocyte) AM) [facility] CenterIctzdevSMCYZYBWON8905-82-51 10:42:00 Test Item Value Reference Range Interpretation Comments Basophils # (test code 0.1 See_Comment [Aut omated message] The = Basophils #) system which generated this result tra nsmitted reference range : <=0.2. The reference r leo was not used to int erpret this result as normal/abnormal . [facility]aNpodhovWIJIIQEMLN1385-23-20 10:42:00 Test Item Value Reference Range Interpretation Comments Large Plt (test code Moderate *ABN*(07/26/16 = Large Plt) 4:42 AM) [facility]aTxdwmsfLTUMTDBDQL6432-74-96 10:42:00 Test Item Value Reference Range Interpretation Comments C4 Complement (test code = C4 42 16-47 Complement) [facility] AND [id number] 16:34:00 Test Item Value Reference Range Interpretation Comments UA Sq Epi (test code = UA Sq Epi) None Seen [facility] AND [id number] 16:34:00 Test Item Value Reference Range Interpretation Comments UA Waxy Cast (test code = UA Waxy Cast) 1 [facility] AND [id number] 16:34:00 Test Item Value Reference Range Interpretation Comments UA Hyal Cast (test 4 See_Comment [Automat ed message] The code = UA Hyal Cast) system which generated this result transmit rohit reference range : <=2. The reference range was not used to interpr et this result as reji l/abnormal. [facility] AND [id number] 16:34:00 Test Item Value Reference Range Interpretation Comments UA Bacteria (test code = UA Occasional /HPF Bacteria) [facility] AND [id number] 16:34:00 Test Item Value Reference Range Interpretation Comments UA Mucus (test code = UA Mucus) Few /LPF [facility] AND [id number] 16:34:00 Test Item Value Reference Range Interpretation Comments UA Amorph Destiny (test code = Occasional /HPF UA Amorph Destiny) [facility] AND [id number] 16:34:00 Test Item Value Reference Range Interpretation Comments UA Leuk Est (test Negative (07/25/16 10:34 code = UA Leuk Est) AM) [facility] AND [id number] 16:34:00 Test Item Value Reference Range Interpretation Comments UA Nitrite (test code Negative (07/25/16 10:34 = UA Nitrite) AM) [facility] AND [id number] 16:34:00 Test Item Value Reference Range Interpretation Comments UA RBC (test code = 2 See_Comment [Automa rohit message] The UA RBC) system which ge nerated this result transmit rohit reference range : <=2. The reference range was not used to interpr et this result as reji l/abnormal. [facility] AND [id number] 16:34:00 Test Item Value Reference Range Interpretation Comments UA WBC (test code = 6 See_Comment [Automa rohit message] The UA WBC) system which ge nerated this result transmit rohit reference range : <=5. The reference range was not used to interpr et this result as reji l/abnormal. [facility] AND [id number] 16:34:00 Test Item Value Reference Range Interpretation Comments UA Urobilinogen (test code = UA 2.0 0.1-1.0 Urobilinogen) [facility] AND [id number] 16:34:00 Test Item Value Reference Range Interpretation Comments UA Ketones (test code = UA Negative mg/dL Ketones) [facility] AND [id number] 16:34:00 Test Item Value Reference Range Interpretation Comments UA Glucose (test code = UA Glucose) 70 mg/dL [facility] AND [id number] 16:34:00 Test Item Value Reference Range Interpretation Comments UA Blood (test code = Negative (07/25/16 10:34 UA Blood) AM) [facility] AND [id number] 16:34:00 Test Item Value Reference Range Interpretation Comments UA Bili (test code = Negative *NA*(07/25/16 UA Bili) 10:34 AM) [facility] AND [id number] 16:34:00 Test Item Value Reference Range Interpretation Comments UA Protein (test code = UA >=300 mg/dL Protein) [facility] AND [id number] 16:34:00 Test Item Value Reference Range Interpretation Comments UA Spec Grav (test code = UA Spec Grav) 1.012 [facility] AND [id number] 16:34:00 Test Item Value Reference Range Interpretation Comments UA pH (test code = UA pH) 5.5 5.0-8.0 [facility] AND [id number] 16:34:00 Test Item Value Reference Range Interpretation Comments UA Turbidity (test code Slight *ABN*(07/25/16 = UA Turbidity) 10:34 AM) [facility] AND [id number] 16:34:00 Test Item Value Reference Range Interpretation Comments UA Color (test code = Dark Yellow *NA*(07/25/16 UA Color) 10:34 AM) [facility] AND [id number] 16:34:00 Test Item Value Reference Range Interpretation Comments UA Gran Cast (test code = UA Gran Cast) 9 [facility] [id number] 16:34:00 Test Item Value Reference Range Interpretation Comments U Sodium (test code = U Sodium) 30 [facility] [id number] 16:34:00 Test Item Value Reference Range Interpretation Comments U Prot/Creat (test code = U Prot/Creat) 3.1 [facility] [id number] 16:34:00 Test Item Value Reference Range Interpretation Comments U Protein (test code = U Protein) 420.9 [facility] [id number] 16:34:00 Test Item Value Reference Range Interpretation Comments U Creatinine (test code = U 136.00 Creatinine) [facility] [id number] 08:55:00 Test Item Value Reference Range Interpretation Comments Magnesium Lvl (test code = Magnesium 2.0 1.8-2.4 Lvl) [facility] [employer] [id number] 08:55:00 Test Item Value Reference Range Interpretation Comments Phosphorus (test code = Phosphorus) 5.2 2.5-4.5 [facility]Love [facility] [employer]2017-02-03 17:29:00 Test Item Value Reference Range Interpretation Comments Troponin-I (test code 0.28 See_Comment [Auto mated message] The = Troponin-I) system which g enerated this result transmit rohit reference range : <=0.40. The reference r leo was not used to interpr et this result as reji l/abnormal. [facility] [employer]2017-02-03 17:29:00 Test Item Value Reference Range Interpretation Comments Total CK (test code = Total CK) 2616 12-191 [facility]2017-02-03 17:29:00 Test Item Value Reference Range Interpretation Comments Troponin-T (test code 0.144 See_Comment [Auto mated message] The = Troponin-T) system which g enerated this result transmit rohit reference range : <=0.100. The reference r leo was not used to interpr et this result as reji l/abnormal. [facility] [employer]2017-02-03 17:29:00 Test Item Value Reference Range Interpretation Comments CK MB Index (test 0.2 See_Comment [Automate d message] The code = CK MB Index) system w [facility] generated this result transmit rohit reference range : <=2.5. The reference range was not used to interpr et this result as reji l/abnormal. [facility] [employer]2017-02-03 17:29:00 Test Item Value Reference Range Interpretation Comments CK MB (test code = CK MB) 6.3 0.5-3.6 [facility] [employer]2017-02-03 11:20:00 Test Item Value Reference Range Interpretation Comments Troponin-I (test code 0.38 See_Comment [Auto mated message] The = Troponin-I) system which g enerated this result transmit rohit reference range : <=0.40. The reference r leo was not used to interpr et this result as reji l/abnormal. [facility] [employer]2017-02-03 11:20:00 Test Item Value Reference Range Interpretation Comments Troponin-T (test code 0.173 See_Comment [Auto mated message] The = Troponin-T) system which g enerated this result transmit rohit reference range : <=0.100. The reference r leo was not used to interpr et this result as reji l/abnormal. [facility] [employer]2017-02-03 11:20:00 Test Item Value Reference Range Interpretation Comments CK MB Index (test 0.2 See_Comment [Automate d message] The code = CK MB Index) system w [facility] generated this result transmit rohit reference range : <=2.5. The reference range was not used to interpr et this result as reji l/abnormal. [facility] [employer]2017-02-03 11:20:00 Test Item Value Reference Range Interpretation Comments CK MB (test code = CK MB) 5.6 0.5-3.6 [facility] [employer] [id number] 11:20:00 Test Item Value Reference Range Interpretation Comments Phosphorus (test code = Phosphorus) 5.5 2.5-4.5 [facility] [employer]2017-02-03 06:18:00 Test Item Value Reference Range Interpretation Comments BNP (test code = BNP) 701 [facility] [employer]2017-02-03 04:59:27 Test Item Value Reference Range Interpretation Comments Troponin-I (test code 0.57 See_Comment [Auto mated message] The = Troponin-I) system which g enerated this result transmit rohit reference range : <=0.40. The reference r leo was not used to interpr et this result as reji l/abnormal. [facility] [employer]2016-12-26 10:22:00 Test Item Value Reference Range Interpretation Comments BNP (test code = BNP) 526 [facility]2016-12-26 10:22:00 Test Item Value Reference Range Interpretation Comments Magnesium Lvl (test code = Magnesium 2.1 1.8-2.4 Lvl) [facility]2016-12-26 10:22:00 Test Item Value Reference Range Interpretation Comments Glucose Lvl (test code = Glucose Lvl) 117 70-99 [facility]2016-12-26 10:22:00 Test Item Value Reference Range Interpretation Comments BUN (test code = BUN) 41 7-22 [facility]2016-12-26 10:22:00 Test Item Value Reference Range Interpretation Comments Creatinine Lvl (test code = Creatinine 2.00 0.50-1.40 Lvl) [facility]2016-12-26 10:22:00 Test Item Value Reference Range Interpretation Comments Calcium Lvl (test code = Calcium Lvl) 9.0 8.5-10.5 [facility]2016-12-26 10:22:00 Test Item Value Reference Range Interpretation Comments Chloride Lvl (test code = Chloride Lvl) 102 95-109 [facility]2016-12-26 10:22:00 Test Item Value Reference Range Interpretation Comments CO2 (test code = CO2) 33 24-32 [facility]2016-12-26 10:22:00 Test Item Value Reference Range Interpretation Comments Sodium Lvl (test code = Sodium Lvl) 144 135-145 [facility]2016-12-26 10:22:00 Test Item Value Reference Range Interpretation Comments Potassium Lvl (test code = Potassium 4.0 3.5-5.1 Lvl) [facility]2016-12-26 10:22:00 Test Item Value Reference Range Interpretation Comments eGFR (test code = eGFR) 32 [facility]2016-12-26 10:22:00 Test Item Value Reference Range Interpretation Comments AGAP (test code = AGAP) 13.0 10.0-20.0 [facility]2016-12-26 10:22:00 Test Item Value Reference Range Interpretation Comments Phosphorus (test code = Phosphorus) 4.6 2.5-4.5 [facility]EddnclpPPOHXQOTVC7705-71-15 10:22:00 Test Item Value Reference Range Interpretation Comments RBC (test code = RBC) 3.68 4.20-5.40 [facility] CenterGmambaoYGMFPCXDHU4468-39-57 10:22:00 Test Item Value Reference Range Interpretation Comments Hgb (test code = Hgb) 9.9 12.0-16.0 [facility] CenterOvavujvBFVSUBJZAC3066-26-99 10:22:00 Test Item Value Reference Range Interpretation Comments MCH (test code = MCH) 26.8 pg 27.0-31.0 [facility] CenterCkhdotmCRDNPGHCHU7626-66-79 10:22:00 Test Item Value Reference Range Interpretation Comments MCHC (test code = MCHC) 34.2 32.0-36.0 [facility] CenterNfoxfvcMWBIUBDJAF3057-87-20 10:22:00 Test Item Value Reference Range Interpretation Comments MCV (test code = MCV) 78.3 80.0-98.0 [facility] CenterKkfcqnzMVIZXSCRWG4671-93-93 10:22:00 Test Item Value Reference Range Interpretation Comments Hct (test code = Hct) 28.8 36.0-48.0 [facility] CenterMtaxscdJSQKSDWGMJ7985-20-20 10:22:00 Test Item Value Reference Range Interpretation Comments Platelet (test code = Platelet) 191 133-450 [facility] CenterMcqrsldRJHNLZEKHM5900-11-82 10:22:00 Test Item Value Reference Range Interpretation Comments MPV (test code = MPV) 9.5 7.4-10.4 [facility] CenterVdnhxgpEGCUQNVBPZ4219-65-00 10:22:00 Test Item Value Reference Range Interpretation Comments RDW (test code = RDW) 15.3 11.5-14.5 [facility] CenterAakpsfaRNGJWMQUMZ1906-15-26 10:22:00 Test Item Value Reference Range Interpretation Comments WBC (test code = WBC) 5.6 3.7-10.4 [facility] CenterLybprnxIVNPUGTZLR7523-74-41 10:22:00 Test Item Value Reference Range Interpretation Comments Eosinophils # (test code 0.5 See_Comment [A utomated message] The = Eosinophils #) system whic h generated this result tra nsmitted reference range : <=0.5. The reference r leo was not used to int erpret this result as normal/abnormal . [facility] CenterWeabaurPKJAPSNUSB6959-11-47 10:22:00 Test Item Value Reference Range Interpretation Comments Microcyte (test code = 1+ *ABN*(06/15/16 [employer]) 4:22 AM) [facility] CenterEaxdlneDHWCBDZIDC2812-43-12 10:22:00 Test Item Value Reference Range Interpretation Comments Basophils # (test code 0.1 See_Comment [Aut omated message] The = Basophils #) system which generated this result tra nsmitted reference range : <=0.2. The reference r leo was not used to int erpret this result as normal/abnormal . [facility] CenterLstshyoJQGDHJXUUF8901-54-98 10:22:00 Test Item Value Reference Range Interpretation Comments Lymphocytes (test code = Lymphocytes) 33.5 20.0-40.0 [facility] CenterIarfctaUKAIFGMAYT7638-06-16 10:22:00 Test Item Value Reference Range Interpretation Comments Segs (test code = Segs) 47.6 45.0-75.0 [facility] CenterEodxwprBUBUEOBXFD4098-81-47 10:22:00 Test Item Value Reference Range Interpretation Comments Monocytes (test code = Monocytes) 8.4 2.0-12.0 [facility] CenterDviaqtoVFIYLJALSA5889-03-25 10:22:00 Test Item Value Reference Range Interpretation Comments Eosinophils (test code = 9.4 See_Comment [A utomated message] The Eosinophils) system which ge nerated this result tra nsmitted reference range : <=4.0. The reference r leo was not used to int erpret this result as normal/abnormal . [facility] CenterJrcewnoDIQVCNFSJA5168-21-37 10:22:00 Test Item Value Reference Range Interpretation Comments Segs-Bands # (test code = Segs-Bands #) 2.6 1.5-8.1 [facility] CenterObulapgSDGKMHQQHI3028-49-06 10:22:00 Test Item Value Reference Range Interpretation Comments Lymphocytes # (test code = Lymphocytes 1.9 1.0-5.5 #) [facility] CenterNnijqduSXHJWDBPYU5281-28-64 10:22:00 Test Item Value Reference Range Interpretation Comments Basophils (test code = 1.1 See_Comment [Aut omated message] The Basophils) system which ge nerated this result tra nsmitted reference range : <=1.0. The reference r leo was not used to int erpret this result as normal/abnormal . [facility] CenterFwchrcmWICQCSHAOR6517-82-23 10:22:00 Test Item Value Reference Range Interpretation Comments Monocytes # (test code 0.5 See_Comment [Aut omated message] The = Monocytes #) system which generated this result tra nsmitted reference range : <=0.8. The reference r leo was not used to int erpret this result as normal/abnormal . [facility]2016-12-25 11:03:00 Test Item Value Reference Range Interpretation Comments Phosphorus (test code = Phosphorus) 4.8 2.5-4.5 [facility]2016-12-25 11:03:00 Test Item Value Reference Range Interpretation Comments Magnesium Lvl (test code = Magnesium 2.0 1.8-2.4 Lvl) [facility]2016-12-25 11:03:00 Test Item Value Reference Range Interpretation Comments eGFR (test code = eGFR) 32 [facility]2016-12-25 11:03:00 Test Item Value Reference Range Interpretation Comments Chloride Lvl (test code = Chloride Lvl) 101 95-109 [facility]2016-12-25 11:03:00 Test Item Value Reference Range Interpretation Comments Potassium Lvl (test code = Potassium 4.4 3.5-5.1 Lvl) [facility]2016-12-25 11:03:00 Test Item Value Reference Range Interpretation Comments BUN (test code = BUN) 37 7-22 [facility]2016-12-25 11:03:00 Test Item Value Reference Range Interpretation Comments Glucose Lvl (test code = Glucose Lvl) 119 70-99 [facility]2016-12-25 11:03:00 Test Item Value Reference Range Interpretation Comments Creatinine Lvl (test code = Creatinine 2.00 0.50-1.40 Lvl) [facility]2016-12-25 11:03:00 Test Item Value Reference Range Interpretation Comments Sodium Lvl (test code = Sodium Lvl) 142 135-145 [facility]2016-12-25 11:03:00 Test Item Value Reference Range Interpretation Comments Calcium Lvl (test code = Calcium Lvl) 8.7 8.5-10.5 [facility]2016-12-25 11:03:00 Test Item Value Reference Range Interpretation Comments CO2 (test code = CO2) 32 24-32 [facility]2016-12-25 11:03:00 Test Item Value Reference Range Interpretation Comments AGAP (test code = AGAP) 13.4 10.0-20.0 [facility] CenterSuceddrYYFWNNYNRW7840-86-44 11:03:00 Test Item Value Reference Range Interpretation Comments Eosinophils (test code = 10.3 See_Comment [A utomated message] The Eosinophils) system which ge nerated this result tra nsmitted reference range : <=4.0. The reference r leo was not used to int erpret this result as normal/abnormal . [facility] CenterNakpdoxJRZHPNQOGL1507-76-44 11:03:00 Test Item Value Reference Range Interpretation Comments Basophils # (test code 0.1 See_Comment [Aut omated message] The = Basophils #) system which generated this result tra nsmitted reference range : <=0.2. The reference r leo was not used to int erpret this result as normal/abnormal . [facility] CenterYrxhrfzOLEXZNQBOL5020-91-82 11:03:00 Test Item Value Reference Range Interpretation Comments Eosinophils # (test code 0.5 See_Comment [A utomated message] The = Eosinophils #) system whic h generated this result tra nsmitted reference range : <=0.5. The reference r leo was not used to int erpret this result as normal/abnormal . [facility] CenterGkchztvMBZRYDJJFP2141-79-28 11:03:00 Test Item Value Reference Range Interpretation Comments Monocytes # (test code 0.5 See_Comment [Aut omated message] The = Monocytes #) system which generated this result tra nsmitted reference range : <=0.8. The reference r leo was not used to int erpret this result as normal/abnormal . [facility] CenterVinxwqdJOHCVLCSAB0345-21-44 11:03:00 Test Item Value Reference Range Interpretation Comments Segs-Bands # (test code = Segs-Bands #) 2.1 1.5-8.1 [facility] CenterWfxadvoFNORBHUWVP5652-43-45 11:03:00 Test Item Value Reference Range Interpretation Comments Basophils (test code = 1.2 See_Comment [Aut omated message] The Basophils) system which ge nerated this result tra nsmitted reference range : <=1.0. The reference r leo was not used to int erpret this result as normal/abnormal . [place] [address]-12-25 11:03:00 Test Item Value Reference Range Interpretation Comments Lymphocytes # (test code = Lymphocytes 1.9 1.0-5.5 #) [facility] CenterHrcjvikTCAAPCUIGF2228-59-70 11:03:00 Test Item Value Reference Range Interpretation Comments Segs (test code = Segs) 42.5 45.0-75.0 [facility] CenterNrkizuiXQETHJBSSG7041-27-29 11:03:00 Test Item Value Reference Range Interpretation Comments Lymphocytes (test code = Lymphocytes) 37.0 20.0-40.0 [facility] CenterFxeyfaqUQUIIGTZQD0203-50-53 11:03:00 Test Item Value Reference Range Interpretation Comments Monocytes (test code = Monocytes) 9.0 2.0-12.0 [facility] CenterSbjxscdNGWFUOPLPZ8066-31-90 11:03:00 Test Item Value Reference Range Interpretation Comments MPV (test code = MPV) 9.8 7.4-10.4 [facility] CenterJuzqnydPRHRGQQRET9014-05-30 11:03:00 Test Item Value Reference Range Interpretation Comments WBC (test code = WBC) 5.0 3.7-10.4 [facility] CenterFmmwbgrCMMVHLJKFL1867-23-72 11:03:00 Test Item Value Reference Range Interpretation Comments RBC (test code = RBC) 3.57 4.20-5.40 [facility] CenterUfwdhhiYPYOCDTMTL9246-86-08 11:03:00 Test Item Value Reference Range Interpretation Comments Hgb (test code = Hgb) 9.4 12.0-16.0 [facility] CenterCzctiqvBSSOGPGXFB3087-08-45 11:03:00 Test Item Value Reference Range Interpretation Comments Hct (test code = Hct) 28.5 36.0-48.0 [facility] CenterDqtmdhdFUPOQQETVS8333-42-03 11:03:00 Test Item Value Reference Range Interpretation Comments Platelet (test code = Platelet) 183 133-450 [facility] CenterUixvqhxCBVBJHVVPS1008-71-70 11:03:00 Test Item Value Reference Range Interpretation Comments MCV (test code = MCV) 79.9 80.0-98.0 [facility] CenterLthcsidNAELRTKETK7661-47-49 11:03:00 Test Item Value Reference Range Interpretation Comments MCH (test code = MCH) 26.3 pg 27.0-31.0 [facility] CenterXgsneddBVULIJWVTB0818-67-12 11:03:00 Test Item Value Reference Range Interpretation Comments MCHC (test code = MCHC) 33.0 32.0-36.0 [facility] CenterHcawlrbGCVTLZXUZQ7293-93-95 11:03:00 Test Item Value Reference Range Interpretation Comments RDW (test code = RDW) 15.9 11.5-14.5 [facility]2016-12-24 10:26:00 Test Item Value Reference Range Interpretation Comments U Prot/Creat (test code = U Prot/Creat) 6.9 [facility] ENBC4659-92-83 10:26:00 Test Item Value Reference Range Interpretation Comments U Creatinine (test code = U Creatinine) 19.30 [facility]2016-12-24 10:26:00 Test Item Value Reference Range Interpretation Comments U Protein (test code = U Protein) 133.1 [facility] CenterSiqjckyFUVNQKZPXP7512-87-99 09:20:00 Test Item Value Reference Range Interpretation Comments MPV (test code = MPV) 9.7 7.4-10.4 [facility] CenterWslbqacOQDIRXVBHT2123-47-88 09:20:00 Test Item Value Reference Range Interpretation Comments Platelet (test code = Platelet) 184 133-450 [facility] CenterNzfasfcXIAYDWUEHU8802-60-12 09:20:00 Test Item Value Reference Range Interpretation Comments RDW (test code = RDW) 15.9 11.5-14.5 [facility] CenterEndyirySFOAWHPMAS9697-96-46 09:20:00 Test Item Value Reference Range Interpretation Comments MCV (test code = MCV) 79.3 80.0-98.0 [facility] CenterJybwfybZJORJWVEMW7944-80-41 09:20:00 Test Item Value Reference Range Interpretation Comments MCHC (test code = MCHC) 33.0 32.0-36.0 [facility] CenterLwwxsjlKGMMQYCFYG5341-38-75 09:20:00 Test Item Value Reference Range Interpretation Comments MCH (test code = MCH) 26.2 pg 27.0-31.0 [facility] CenterNckmimjOHLMLWIOGP5256-30-56 09:20:00 Test Item Value Reference Range Interpretation Comments Hct (test code = Hct) 29.4 36.0-48.0 [facility] CenterQbpqngpAKKTZCRTMD6511-93-37 09:20:00 Test Item Value Reference Range Interpretation Comments Hgb (test code = Hgb) 9.7 12.0-16.0 [facility] CenterFpqehogULEFPEVYRW9358-03-22 09:20:00 Test Item Value Reference Range Interpretation Comments RBC (test code = RBC) 3.70 4.20-5.40 [facility] CenterJjujjmwXCHFYNGUUO1432-82-80 09:20:00 Test Item Value Reference Range Interpretation Comments WBC (test code = WBC) 5.7 3.7-10.4 [facility] CenterZoqsjnxKCHDRUZFFA6910-30-42 09:20:00 Test Item Value Reference Range Interpretation Comments Basophils # (test code 0.1 See_Comment [Aut omated message] The = Basophils #) system which generated this result tra nsmitted reference range : <=0.2. The reference r leo was not used to int erpret this result as normal/abnormal . [facility] CenterJjodmhjTHUPIUZJUD5514-81-52 09:20:00 Test Item Value Reference Range Interpretation Comments Lymphocytes # (test code = Lymphocytes 2.2 1.0-5.5 #) [facility] CenterFaqgzgnYOVVQRQWNP8496-40-04 09:20:00 Test Item Value Reference Range Interpretation Comments Eosinophils # (test code 0.5 See_Comment [A utomated message] The = Eosinophils #) system whic h generated this result tra nsmitted reference range : <=0.5. The reference r leo was not used to int erpret this result as normal/abnormal . [facility] CenterGtlboadCYAFILODOH4814-46-85 09:20:00 Test Item Value Reference Range Interpretation Comments Monocytes # (test code 0.5 See_Comment [Aut omated message] The = Monocytes #) system which generated this result tra nsmitted reference range : <=0.8. The reference r leo was not used to int erpret this result as normal/abnormal . [facility] CenterHvpagfyIOJJDTOLDK0547-63-26 09:20:00 Test Item Value Reference Range Interpretation Comments Basophils (test code = 1.1 See_Comment [Aut omated message] The Basophils) system which ge nerated this result tra nsmitted reference range : <=1.0. The reference r leo was not used to int erpret this result as normal/abnormal . [facility] CenterGitvqfaZBDNKNRLKK7990-34-66 09:20:00 Test Item Value Reference Range Interpretation Comments Segs-Bands # (test code = Segs-Bands #) 2.3 1.5-8.1 [place] 388486-12-24 09:20:00 Test Item Value Reference Range Interpretation Comments Eosinophils (test code = 9.5 See_Comment [A utomated message] The Eosinophils) system which ge nerated this result tra nsmitted reference range : <=4.0. The reference r leo was not used to int erpret this result as normal/abnormal . [facility] CenterQpyplkuTUZRDNTWII6096-87-38 09:20:00 Test Item Value Reference Range Interpretation Comments Monocytes (test code = Monocytes) 9.0 2.0-12.0 [facility] CenterJdpazoqFZMOBQATFL8096-23-29 09:20:00 Test Item Value Reference Range Interpretation Comments Lymphocytes (test code = Lymphocytes) 38.9 20.0-40.0 [facility] CenterZkwsemuYZAKIKJPBO5382-92-11 09:20:00 Test Item Value Reference Range Interpretation Comments Segs (test code = Segs) 41.5 45.0-75.0 [facility]2016-12-24 06:34:00 Test Item Value Reference Range Interpretation Comments Magnesium Lvl (test code = Magnesium 1.7 1.8-2.4 Lvl) [facility]2016-12-24 06:34:00 Test Item Value Reference Range Interpretation Comments Phosphorus (test code = Phosphorus) 4.2 2.5-4.5 [facility]DjqdzcnVSRMKGQBKOTE2938-41-54 06:34:00 Test Item Value Reference Range Interpretation Comments AGAP (test code = AGAP) 14.3 10.0-20.0 [facility]CprwumiYIPJVSOHPCLM9875-43-54 06:34:00 Test Item Value Reference Range Interpretation Comments eGFR (test code = eGFR) 41 [facility] HospitalQumhjyfFMVQMIFMZTBB9513-12-78 06:34:00 Test Item Value Reference Range Interpretation Comments Chloride Lvl (test code = Chloride Lvl) 103 95-109 [facility] HospitalOttmcmpJNNVDLMAURJF9091-93-31 06:34:00 Test Item Value Reference Range Interpretation Comments Calcium Lvl (test code = Calcium Lvl) 8.5 8.5-10.5 [facility] HospitalZqfhzjcUMJBQTMTMVUS1660-70-89 06:34:00 Test Item Value Reference Range Interpretation Comments CO2 (test code = CO2) 32 24-32 [facility] HospitalIncvisiQFJHKLUGSYKT2162-20-30 06:34:00 Test Item Value Reference Range Interpretation Comments Glucose Lvl (test code = Glucose Lvl) 173 70-99 [facility]YlppybiVURPZMCWTLKA2191-68-70 06:34:00 Test Item Value Reference Range Interpretation Comments BUN (test code = BUN) 37 7-22 [facility] HospitalEgleirgLQERCMGFYSVN1659-61-29 06:34:00 Test Item Value Reference Range Interpretation Comments Creatinine Lvl (test code = Creatinine 1.63 0.50-1.40 Lvl) [facility] HospitalMsyutsxEGBHQRTJJZRQ0607-69-56 06:34:00 Test Item Value Reference Range Interpretation Comments Potassium Lvl (test code = Potassium 4.3 3.5-5.1 Lvl) [facility] HospitalRvxhfkmHPLWDKSCINHM7723-61-95 06:34:00 Test Item Value Reference Range Interpretation Comments Sodium Lvl (test code = Sodium Lvl) 145 135-145 [facility]2016-12-22 16:21:00 Test Item Value Reference Range Interpretation Comments Ammonia (test code = Ammonia) 48.0 [facility]IlrrkchUVCICKJKSF9777-78-61 14:56:00 Test Item Value Reference Range Interpretation Comments IVETTE Interp (test code Pattern appears = IVETTE Interp) Nucleolar. [facility]aRsxdudaXGXVGUFJCK5520-27-85 14:56:00 Test Item Value Reference Range Interpretation Comments IVETTE Titer (test code = 1:40 *ABN*(06/11/16 IVETTE Titer) 8:56 AM) [facility]xgqtdePAIPAEELLY0852-96-25 14:56:00 Test Item Value Reference Range Interpretation Comments Hep Bs Ag (test code Negative *NA*(06/11/16 = Hep Bs Ag) 8:56 AM) [facility]aEjkleebNHXXBVPKGL1683-40-70 14:56:00 Test Item Value Reference Range Interpretation Comments Hep C Ab (test code = Negative *NA*(06/11/16 Hep C Ab) 8:56 AM) [facility]aTbndwtoVNQVMQSIYN5952-70-68 14:56:00 Test Item Value Reference Range Interpretation Comments Hep B Core IgM (test Negative *NA*(06/11/16 code = Hep B Core 8:56 AM) IgM) [facility] HospitalXheeengSCWCNGCYSW7258-42-88 14:56:00 Test Item Value Reference Range Interpretation Comments Hep A IgM (test code Negative *NA*(06/11/16 = Hep A IgM) 8:56 AM) [facility] HospitalSofhhopWKTJUISJIT6084-57-96 14:56:00 Test Item Value Reference Range Interpretation Comments HIV Ag/Ab 4th Gen Negative *NA*(06/11/16 (test code = HIV 8:56 AM) Ag/Ab 4th Gen) [facility] HospitalQuujbbfWEXPTSYJAU1670-33-30 14:56:00 Test Item Value Reference Range Interpretation Comments IVETTE (test code = IVETTE) Positive *ABN*(06/11/16 8:56 AM) [facility]2016-12-22 10:42:00 Test Item Value Reference Range Interpretation Comments Bili Total (test code = Bili Total) 0.1 0.2-1.3 [facility]2016-12-22 10:42:00 Test Item Value Reference Range Interpretation Comments Total Protein (test code = Total 5.2 6.4-8.4 Protein) [facility]2016-12-22 10:42:00 Test Item Value Reference Range Interpretation Comments Albumin Lvl (test code = Albumin Lvl) 1.6 3.5-5.0 [facility]2016-12-22 10:42:00 Test Item Value Reference Range Interpretation Comments B/C Ratio (test code = B/C Ratio) 20 6-25 [facility]2016-12-22 10:42:00 Test Item Value Reference Range Interpretation Comments Globulin (test code = Globulin) 3.6 2.7-4.2 [facility]2016-12-22 10:42:00 Test Item Value Reference Range Interpretation Comments A/G Ratio (test code = A/G Ratio) 0.4 0.7-1.6 [facility]2016-12-22 10:42:00 Test Item Value Reference Range Interpretation Comments Alk Phos (test code = Alk Phos) 74 39-136 [facility]2016-12-22 10:42:00 Test Item Value Reference Range Interpretation Comments ALT (test code = ALT) 14 See_Comment [Auto mated message] The system which ge nerated this result transmit rohit reference range : <=65. The reference range was not used to interpr et this result as reji l/abnormal. [facility]2016-12-22 10:42:00 Test Item Value Reference Range Interpretation Comments AST (test code = AST) 13 See_Comment [Auto mated message] The system which ge nerated this result transmit rohit reference range : <=37. The reference range was not used to interpr et this result as reji l/abnormal. [facility] CenterTermhjmDTNROSGVSN5304-59-77 10:42:00 Test Item Value Reference Range Interpretation Comments INR (test code = INR) 1.06 0.85-1.17 [facility] CenterCpfvovwNNDXFUFRLM1660-22-46 10:42:00 Test Item Value Reference Range Interpretation Comments PT (test code = PT) 14.0 s 12.0-14.7 [facility] CenterQwkbppoGVBPJJJPZS4627-47-63 10:42:00 Test Item Value Reference Range Interpretation Comments PTT (test code = PTT) 36.4 s 22.9-35.8 [facility] JDCRNNQOB9196-80-87 10:42:00 Test Item Value Reference Range Interpretation Comments Hgb A1C (test code = Hgb A1C) 10.5 [facility]aSurreal [facility] [id number] 02:08:00 Test Item Value Reference Range Interpretation Comments CK MB Index (test 1.8 See_Comment [Automate d message] The code = CK MB Index) system w [facility] generated this result transmit rohit reference range : <=2.5. The reference range was not used to interpr et this result as reji l/abnormal. [facility] [id number] 02:08:00 Test Item Value Reference Range Interpretation Comments CK MB (test code = CK MB) 2.9 0.5-3.6 [facility] [id number] 02:08:00 Test Item Value Reference Range Interpretation Comments Troponin-T (test code 0.061 See_Comment [Auto mated message] The = Troponin-T) system which g enerated this result transmit rohit reference range : <=0.100. The reference r leo was not used to interpr et this result as reji l/abnormal. [facility] [id number] 02:08:00 Test Item Value Reference Range Interpretation Comments Total CK (test code = Total CK) 159 12-191 [facility] [id number] 02:08:00 Test Item Value Reference Range Interpretation Comments Troponin-I (test code no gt See_Comment [Auto mated message] The = Troponin-I) system which g enerated this result transmit rohit reference range : <=0.40. The reference r leo was not used to interpr et this result as reji l/abnormal. [facility]2016-12-22 02:08:00 Test Item Value Reference Range Interpretation Comments Bili Total (test code = Bili Total) 0.2 0.2-1.3 [facility]2016-12-22 02:08:00 Test Item Value Reference Range Interpretation Comments Bili Direct (test code 0.1 See_Comment [Aut omated message] The = Bili Direct) system which generated this result tra nsmitted reference range : <=0.3. The reference r leo was not used to int erpret this result as reji l/abnormal. [facility]2016-12-22 02:08:00 Test Item Value Reference Range Interpretation Comments Bili Indirect (test 0.1 See_Comment [Automa rohit message] The code = Bili Indirect) system which generated this result tra nsmitted reference range : <=1.0. The reference r leo was not used to int erpret this result as normal/abnormal . [facility]2016-12-22 02:08:00 Test Item Value Reference Range Interpretation Comments Total Protein (test code = Total 5.7 6.4-8.4 Protein) [facility]2016-12-22 02:08:00 Test Item Value Reference Range Interpretation Comments A/G Ratio (test code = A/G Ratio) 0.5 0.7-1.6 [facility]2016-12-22 02:08:00 Test Item Value Reference Range Interpretation Comments Albumin Lvl (test code = Albumin Lvl) 1.8 3.5-5.0 [facility]2016-12-22 02:08:00 Test Item Value Reference Range Interpretation Comments Globulin (test code = Globulin) 3.9 2.7-4.2 [place] [id number] 02:08:00 Test Item Value Reference Range Interpretation Comments Alk Phos (test code = Alk Phos) 99 39-136 [facility]2016-12-22 02:08:00 Test Item Value Reference Range Interpretation Comments AST (test code = AST) 21 See_Comment [Auto mated message] The system which ge nerated this result transmit rohit reference range : <=37. The reference range was not used to interpr et this result as reji l/abnormal. [facility] [id number] 02:08:00 Test Item Value Reference Range Interpretation Comments ALT (test code = ALT) 17 See_Comment [Auto mated message] The system which ge nerated this result transmit rohit reference range : <=65. The reference range was not used to interpr et this result as reji l/abnormal. [facility] [id number] 02:08:00 Test Item Value Reference Range Interpretation Comments UDS Note (test code = See Note *NA*(06/10/16 UDS Note) 8:08 PM) [facility] [id number] 02:08:00 Test Item Value Reference Range Interpretation Comments U Propoxyph Scr (test Negative *NA*(06/10/16 code = U Propoxyph Scr) 8:08 PM) [facility] [id number] 02:08:00 Test Item Value Reference Range Interpretation Comments U Opiate Scr (test Negative *NA*(06/10/16 code = U Opiate Scr) 8:08 PM) [facility] [id number] 02:08:00 Test Item Value Reference Range Interpretation Comments U Methadone Scr (test Negative *NA*(06/10/16 code = U Methadone Scr) 8:08 PM) [facility] [id number] 02:08:00 Test Item Value Reference Range Interpretation Comments U Phencyc Scr (test Negative *NA*(06/10/16 code = U Phencyc Scr) 8:08 PM) [facility] [id number] 02:08:00 Test Item Value Reference Range Interpretation Comments U Cannab Scr (test Negative *NA*(06/10/16 code = U Cannab Scr) 8:08 PM) [facility] [id number] 02:08:00 Test Item Value Reference Range Interpretation Comments U Amph Scr (test code Negative *NA*(06/10/16 = U Amph Scr) 8:08 PM) [facility] [id number] 02:08:00 Test Item Value Reference Range Interpretation Comments U Kelly Scr (test code Negative *NA*(06/10/16 = U Kelly Scr) 8:08 PM) [facility] [id number] 02:08:00 Test Item Value Reference Range Interpretation Comments U Benzodia Scr (test Negative *NA*(06/10/16 code = U Benzodia Scr) 8:08 PM) [facility] [id number] 02:08:00 Test Item Value Reference Range Interpretation Comments U Cocaine Scr (test Negative *NA*(06/10/16 code = U Cocaine Scr) 8:08 PM) [facility] ToyaqpkKJBGEL6361-72-77 02:08:00 Test Item Value Reference Range Interpretation Comments LDL (Calculated) (test code = LDL 75 (Calculated)) [id number] 02:08:00 Test Item Value Reference Range Interpretation Comments VLDL (test code = VLDL) 27 [facility]IonguegPXRCSK4332-59-41 02:08:00 Test Item Value Reference Range Interpretation Comments Chol (test code = Chol) 133 [facility]aHswxlrpBYNDMZ6850-09-82 02:08:00 Test Item Value Reference Range Interpretation Comments Trig (test code = Trig) 133 [facility] HospitalUscvjiaJEEPRO6073-79-84 02:08:00 Test Item Value Reference Range Interpretation Comments CHD Risk (test code = CHD Risk) 4.29 3.90-5.80 [facility]MmajnkmADNYUF8612-61-23 02:08:00 Test Item Value Reference Range Interpretation Comments HDL (test code = HDL) 31 [facility] AND [id number] 02:08:00 Test Item Value Reference Range Interpretation Comments UA Urobilinogen (test code = UA <=1.0 mg/dL 0.1-1.0 Urobilinogen) [facility] AND [id number] 02:08:00 Test Item Value Reference Range Interpretation Comments UA Ketones (test code = UA Negative mg/dL Ketones) [facility] AND [id number] 02:08:00 Test Item Value Reference Range Interpretation Comments UA Glucose (test code = UA Glucose) 300 mg/dL [facility] AND [id number] 02:08:00 Test Item Value Reference Range Interpretation Comments UA Protein (test code = UA >=300 mg/dL Protein) [facility] AND [id number] 02:08:00 Test Item Value Reference Range Interpretation Comments UA pH (test code = UA pH) 6.0 5.0-8.0 [facility] AND [id number] 02:08:00 Test Item Value Reference Range Interpretation Comments UA Nitrite (test code Negative (06/10/16 8:08 = UA Nitrite) PM) [facility] AND [id number] 02:08:00 Test Item Value Reference Range Interpretation Comments UA Blood (test code = Trace *ABN*(06/10/16 UA Blood) 8:08 PM) [facility] AND [id number] 02:08:00 Test Item Value Reference Range Interpretation Comments UA Bili (test code = Negative *NA*(06/10/16 UA Bili) 8:08 PM) [facility] AND [id number] 02:08:00 Test Item Value Reference Range Interpretation Comments UA Mucus (test code = UA Mucus) Few /LPF [facility] AND [id number] 02:08:00 Test Item Value Reference Range Interpretation Comments UA RBC (test code = 4 See_Comment [Automa rohit message] The UA RBC) system which ge nerated this result transmit rohit reference range : <=2. The reference range was not used to interpr et this result as reji l/abnormal. [facility] AND [id number] 02:08:00 Test Item Value Reference Range Interpretation Comments UA Sq Epi (test code = UA Sq Epi) Few /LPF [facility] AND [id number] 02:08:00 Test Item Value Reference Range Interpretation Comments UA WBC (test code = 5 See_Comment [Automa rohit message] The UA WBC) system which ge nerated this result transmit rohit reference range : <=5. The reference range was not used to interpr et this result as reji l/abnormal. [facility] AND [id number] 02:08:00 Test Item Value Reference Range Interpretation Comments UA Leuk Est (test code Small *ABN*(06/10/16 = UA Leuk Est) 8:08 PM) [facility] AND [id number] 02:08:00 Test Item Value Reference Range Interpretation Comments UA Hyal Cast (test 1 See_Comment [Automat ed message] The code = UA Hyal Cast) system which generated this result transmit rohit reference range : <=2. The reference range was not used to interpr et this result as reji l/abnormal. [facility] AND [id number] 02:08:00 Test Item Value Reference Range Interpretation Comments UA Spec Grav (test code = UA Spec Grav) 1.009 [facility] [id number] 02:08:00 Test Item Value Reference Range Interpretation Comments UA Color (test code = Yellow *NA*(06/10/16 UA Color) 8:08 PM) [facility] [id number] 02:08:00 Test Item Value Reference Range Interpretation Comments UA Turbidity (test code = Clear (06/10/16 8:08 UA Turbidity) PM) [facility] [id number] 02:08:00 Test Item Value Reference Range Interpretation Comments U Preg (test code = U Negative (06/10/16 8:08 Preg) PM) [facility] [id number] 02:08:00 Test Item Value Reference Range Interpretation Comments U Protein (test code = U Protein) 375.4 [facility] [id number] 02:08:00 Test Item Value Reference Range Interpretation Comments U Prot/Creat (test code = U Prot/Creat) 5.4 [facility] [id number] 02:08:00 Test Item Value Reference Range Interpretation Comments U Creatinine (test code = U Creatinine) 69.80 [facility] [id number] 16:53:00 Test Item Value Reference Range Interpretation Comments BNP (test code = BNP) 1135 [facility] [id number] 16:53:00 Test Item Value Reference Range Interpretation Comments Troponin-I (test code no gt See_Comment [Auto mated message] The = Troponin-I) system which g enerated this result transmit rohit reference range : <=0.40. The reference r leo was not used to interpr et this result as reji l/abnormal. [facility] Systems, Inc.CHEM [id number] 13:02:00 Test Item Value Reference Range Interpretation Comments Lactic Acid WB (test code = Lactic Acid 0.9 0.5-2.2 WB) [id number] 12:29:44 Test Item Value Reference Range Interpretation Comments Valproic Acid Lvl (test code = Valproic 10 50-100 Acid Lvl) [facility] FallsJlvtghfXXYHQICQHDJAY8588-86-65 11:21:27 Test Item Value Reference Range Interpretation Comments hCG Tot (test code = hCG Tot) 1 [facility]2015-01-06 11:21:00 Test Item Value Reference Range Interpretation Comments Albumin Lvl (test code = Albumin Lvl) 3.2 3.5-5.0 [facility]2015-01-06 11:21:00 Test Item Value Reference Range Interpretation Comments Total Protein (test code = Total 6.6 6.4-8.4 Protein) [facility]2015-01-06 11:21:00 Test Item Value Reference Range Interpretation Comments Bili Total (test code = Bili Total) 0.6 0.2-1.3 [facility]2015-01-06 11:21:00 Test Item Value Reference Range Interpretation Comments Alk Phos (test code = Alk Phos) 59 39-136 [facility]2015-01-06 11:21:00 Test Item Value Reference Range Interpretation Comments AST (test code = AST) 11 See_Comment [Auto mated message] The system which ge nerated this result transmit rohit reference range : <=37. The reference range was not used to interpr et this result as reji l/abnormal. [facility]2015-01-06 11:21:00 Test Item Value Reference Range Interpretation Comments ALT (test code = ALT) 17 See_Comment [Auto mated message] The system which ge nerated this result transmit rohit reference range : <=65. The reference range was not used to interpr et this result as reji l/abnormal. [facility]2015-01-06 11:21:00 Test Item Value Reference Range Interpretation Comments eGFR (test code = eGFR) 99 [facility]2015-01-06 11:21:00 Test Item Value Reference Range Interpretation Comments Glucose Lvl (test code = Glucose Lvl) 314 70-99 [facility]2015-01-06 11:21:00 Test Item Value Reference Range Interpretation Comments Potassium Lvl (test code = Potassium 3.4 3.5-5.1 Lvl) [facility]2015-01-06 11:21:00 Test Item Value Reference Range Interpretation Comments BUN (test code = BUN) 11 7-22 [facility]2015-01-06 11:21:00 Test Item Value Reference Range Interpretation Comments Creatinine Lvl (test code = Creatinine 0.8 0.5-1.4 Lvl) [facility]2015-01-06 11:21:00 Test Item Value Reference Range Interpretation Comments Sodium Lvl (test code = Sodium Lvl) 134 135-145 [facility]2015-01-06 11:21:00 Test Item Value Reference Range Interpretation Comments Chloride Lvl (test code = Chloride Lvl) 94 95-109 [facility]2015-01-06 11:21:00 Test Item Value Reference Range Interpretation Comments Calcium Lvl (test code = Calcium Lvl) 9.1 8.5-10.5 [facility]2015-01-06 11:21:00 Test Item Value Reference Range Interpretation Comments CO2 (test code = CO2) 24 24-32 [facility]2015-01-06 11:21:00 Test Item Value Reference Range Interpretation Comments A/G Ratio (test code = A/G Ratio) 0.9 0.7-1.6 [facility]2015-01-06 11:21:00 Test Item Value Reference Range Interpretation Comments Globulin (test code = Globulin) 3.4 2.0-4.0 [facility]2015-01-06 11:21:00 Test Item Value Reference Range Interpretation Comments B/C Ratio (test code = B/C Ratio) 14 6-25 [facility]2015-01-06 11:21:00 Test Item Value Reference Range Interpretation Comments AGAP (test code = AGAP) 19.4 10.0-20.0 [facility]2015-01-06 11:21:00 Test Item Value Reference Range Interpretation Comments Lipase Lvl (test code = Lipase Lvl) 81 73-393 [facility] [id number] 11:21:00 Test Item Value Reference Range Interpretation Comments Large Plt (test code = Large Plt) Slight [facility] C[id number] 11:21:00 Test Item Value Reference Range Interpretation Comments Basophils # (test code 0.0 See_Comment [Aut omated message] The = Basophils #) system which generated this result tra nsmitted reference range : <=0.2. The reference r leo was not used to int erpret this result as normal/abnormal . [facility] CenterCzcfadrLBDIUZCPFM8203-88-26 11:21:00 Test Item Value Reference Range Interpretation Comments Anisocyte (test code = 1+ *ABN*(06/26/14 5:21 Anisocyte) AM) [facility] CenterYxohabuKQJBRRVORY5936-58-44 11:21:00 Test Item Value Reference Range Interpretation Comments Monocytes # (test code 0.6 See_Comment [Aut omated message] The = Monocytes #) system which generated this result tra nsmitted reference range : <=0.8. The reference r leo was not used to int erpret this result as normal/abnormal . [facility] CenterPtfmrzeQRJAAYPVJX5683-58-37 11:21:00 Test Item Value Reference Range Interpretation Comments Eosinophils # (test code 0.1 See_Comment [A utomated message] The = Eosinophils #) system whic h generated this result tra nsmitted reference range : <=0.5. The reference r leo was not used to int erpret this result as normal/abnormal . [facility] CenterYpphmipCJIFKKBYNM0169-86-87 11:21:00 Test Item Value Reference Range Interpretation Comments Lymphocytes # (test code = Lymphocytes 2.5 1.0-5.5 #) [facility] CenterRpjkgolKLQIEYVARZ4147-54-50 11:21:00 Test Item Value Reference Range Interpretation Comments Segs (test code = Segs) 63.3 45.0-75.0 [facility] CenterKtketbpBUNCFNMGLP8539-89-78 11:21:00 Test Item Value Reference Range Interpretation Comments Segs-Bands # (test code = Segs-Bands #) 5.6 1.5-8.1 [facility] [id number] 11:21:00 Test Item Value Reference Range Interpretation Comments Basophils (test code = 0.0 See_Comment [Aut omated message] The Basophils) system which ge nerated this result tra nsmitted reference range : <=1.0. The reference r leo was not used to int erpret this result as normal/abnormal . [facility] CenterBgwmhinMBBVGKMTHV3739-40-94 11:21:00 Test Item Value Reference Range Interpretation Comments Eosinophils (test code = 0.9 See_Comment [A utomated message] The Eosinophils) system which ge nerated this result tra nsmitted reference range : <=4.0. The reference r leo was not used to int erpret this result as normal/abnormal . [facility] CenterSlczorzTQTOBMIOKQ9110-87-27 11:21:00 Test Item Value Reference Range Interpretation Comments Monocytes (test code = Monocytes) 7.0 2.0-12.0 [facility] CenterZtupnekUYSUSFUKJX9385-74-30 11:21:00 Test Item Value Reference Range Interpretation Comments Lymphocytes (test code = Lymphocytes) 28.8 20.0-40.0 [facility] CenterBqonioxSLFYWOZBML9966-25-66 11:21:00 Test Item Value Reference Range Interpretation Comments WBC (test code = WBC) 8.8 3.7-10.4 [facility] CenterQmgvljrQGTREHCAVJ5196-06-80 11:21:00 Test Item Value Reference Range Interpretation Comments RBC (test code = RBC) 5.19 4.20-5.40 [facility] CenterEayyjrjSHBPALLWTN6772-47-97 11:21:00 Test Item Value Reference Range Interpretation Comments Hgb (test code = Hgb) 14.4 12.0-16.0 [facility] CenterDxrppktCMUSKWCLVW2085-96-89 11:21:00 Test Item Value Reference Range Interpretation Comments Hct (test code = Hct) 43.1 36.0-48.0 [facility] CenterIhhqfmuJHVJFJGDGT0976-48-18 11:21:00 Test Item Value Reference Range Interpretation Comments MCV (test code = MCV) 83.1 80.0-98.0 [facility] CenterDqettiyCYXNPEGVZI4771-89-76 11:21:00 Test Item Value Reference Range Interpretation Comments MCH (test code = MCH) 27.8 pg 27.0-31.0 [facility] CenterEyvdvxhNSXBKNIKWA9803-09-03 11:21:00 Test Item Value Reference Range Interpretation Comments RDW (test code = RDW) 13.1 11.5-14.5 [facility] CenterBcdaiylHSQVDIGBSZ9242-34-73 11:21:00 Test Item Value Reference Range Interpretation Comments MCHC (test code = MCHC) 33.5 32.0-36.0 [facility] CenterXdubycwOAFSKMSZPP6044-73-12 11:21:00 Test Item Value Reference Range Interpretation Comments Platelet (test code = Platelet) 201 133-450 [facility] CenterJizcrxtZYOXCCABJZ7133-81-78 11:21:00 Test Item Value Reference Range Interpretation Comments MPV (test code = MPV) 10.4 7.4-10.4 [facility] CenterQdxebrcAYYGOZKNPM6789-93-95 04:48:55 Test Item Value Reference Range Interpretation Comments UA Gustine Yeast (test code = UA Occasional /HPF A Gustine Yeast) [facility] CenterOpuuxyrXFIZWANLPG0022-15-67 04:48:55 Test Item Value Reference Range Interpretation Comments UA Mucus (test code = UA Mucus) Few /LPF N [facility] CenterNmesjuxPAMHAQFLFF0909-87-43 04:48:55 Test Item Value Reference Range Interpretation Comments UA Sq Epi (test code = UA Sq Moderate /LPF A Epi) [facility] CenterMnpeukfPFUXZTQWUF9092-42-01 04:48:55 Test Item Value Reference Range Interpretation Comments Micro? (test code = Performed (04/14/2013 N Micro?) 23:48:55) [facility] CenterUagtjglFVSCOLBXAX7115-48-69 04:48:55 Test Item Value Reference Range Interpretation Comments UA WBC (test code = UA WBC) 0-2 /HPF N [facility] CenterQmjmfmgVHYMLPHKGA6302-12-07 04:48:55 Test Item Value Reference Range Interpretation Comments UA Bacteria (test code = UA Occasional /HPF N Bacteria) [facility] CenterJhmlvojCOVSCSMWSM5894-55-67 04:48:55 Test Item Value Reference Range Interpretation Comments UA Glucose (test code = UA Glucose) 500 mg/dL A [facility] CenterLdothkhJYAHAKXGYI4234-49-62 04:48:55 Test Item Value Reference Range Interpretation Comments UA Bili (test code = Negative *NA*(04/14/2013 UA Bili) 23:48:55) [facility] CenterNwlaeqvARMFDEUIXI9208-81-44 04:48:55 Test Item Value Reference Range Interpretation Comments UA Ketones (test code = Trace A UA Ketones) *ABN*(04/14/2013 23:48:55) [facility] CenterWvmperfIUOFMUYVCD3752-40-17 04:48:55 Test Item Value Reference Range Interpretation Comments UA Blood (test code = Negative (04/14/2013 N UA Blood) 23:48:55) [facility] CenterRkxzdieHUKPSQXOJV7824-39-65 04:48:55 Test Item Value Reference Range Interpretation Comments UA Urobilinogen (test code = UA 0.2 0.1-1.0 N Urobilinogen) [facility] CenterHzefebaRZMNMLOGOZ5736-69-09 04:48:55 Test Item Value Reference Range Interpretation Comments UA Nitrite (test code Negative (04/14/2013 N = UA Nitrite) 23:48:55) [facility] CenterVfslxzbJEMFTWHFEK3689-64-42 04:48:55 Test Item Value Reference Range Interpretation Comments UA Leuk Est (test Negative (04/14/2013 N code = UA Leuk Est) 23:48:55) [facility] CenterEjtaiupOUPSDNJIRS3510-33-93 04:48:55 Test Item Value Reference Range Interpretation Comments UA Turbidity (test code = Clear (04/14/2013 N UA Turbidity) 23:48:55) [facility] CenterSkyoudrIWMWMKNPJR2291-78-49 04:48:55 Test Item Value Reference Range Interpretation Comments UA Color (test code = Yellow *NA*(04/14/2013 UA Color) 23:48:55) [facility] CenterMmivqrhPOAYYHXQCH0812-70-12 04:48:55 Test Item Value Reference Range Interpretation Comments UA pH (test code = UA pH) 7.0 1 5.0-8.0 N [facility] CenterOrsauwuGLRERYLKIU4648-26-70 04:48:55 Test Item Value Reference Range Interpretation Comments UA Spec Grav (test code = UA Spec 1.025 1 N Grav) [facility] CenterYeakulwNDHJLANXUC3374-24-86 04:48:55 Test Item Value Reference Range Interpretation Comments UA Protein (test code = Trace A UA Protein) *ABN*(04/14/2013 23:48:55) [facility] CenterAcnbfecCSNLISUPA4830-76-16 04:28:00 Test Item Value Reference Range Interpretation Comments S Preg (test code = S Negative *NA*(04/14/2013 Preg) 23:28:00) [facility] CenterRrmkwolHSYFXBSWT0301-78-02 04:28:00 Test Item Value Reference Range Interpretation Comments Lipase Lvl (test code = Lipase Lvl) 233 73-393 N [facility] CenterKavfuyqCZDEJQSGL4381-54-84 04:28:00 Test Item Value Reference Range Interpretation Comments Globulin (test code = Globulin) 4.1 2.0-4.0 H [facility] CenterCjehedpKBMODBKPY1528-03-79 04:28:00 Test Item Value Reference Range Interpretation Comments AGAP (test code = AGAP) 10.5 10.0-20.0 N [facility] CenterTgpvflkHMARFDWSR0423-27-97 04:28:00 Test Item Value Reference Range Interpretation Comments B/C Ratio (test code = B/C Ratio) 6 6-25 N [facility] CenterIrsyybzQIGYTBGSU2485-47-96 04:28:00 Test Item Value Reference Range Interpretation Comments A/G Ratio (test code = A/G Ratio) 0.7 0.7-1.6 N The [facility] CenterAanhekaYDKRLASDI4497-60-87 04:28:00 Test Item Value Reference Range Interpretation Comments eGFR (test code = eGFR) 130 [facility] CenterSorrubcYTLAHQOZO4967-93-24 04:28:00 Test Item Value Reference Range Interpretation Comments Albumin Lvl (test code = Albumin Lvl) 2.9 3.5-5.0 L [facility] CenterNoqwkykAZJIMBJOP2018-28-78 04:28:00 Test Item Value Reference Range Interpretation Comments ASPARTATE TRANSAMINASE 20 See_Comment N [Aut omated message] (test code = ASPARTATE The s ystem which TRANSAMINASE) generated this result transmitted ref erence range: <=37. Th e reference range was not used to interpr et this result as normal/abnormal . [facility] CenterDkgzehiLBQOARJTV2499-20-21 04:28:00 Test Item Value Reference Range Interpretation Comments Bili Total (test code = Bili Total) 0.5 0.2-1.3 N [facility] CenterMzciaaqSYCYHNKQY6651-34-62 04:28:00 Test Item Value Reference Range Interpretation Comments Alk Phos (test code = Alk Phos) 89 39-136 N [facility] CenterMiwebzzTGVQQHDYD0778-86-88 04:28:00 Test Item Value Reference Range Interpretation Comments ALANINE AMINOTRANSFERASE 11 See_Comment N [A utomated message] (test code = ALANINE The sys tem which AMINOTRANSFERASE) generated this result transmitted ref erence range: <=65. Th e reference range was not used to int erpret this result as normal/abnormal . [facility] CenterJtsvafqWPKALNBWO8859-53-46 04:28:00 Test Item Value Reference Range Interpretation Comments Creatinine Lvl (test code = Creatinine 0.5 0.5-1.4 N Lvl) [facility] CenterNwyabcbPICGHUGTO9284-92-89 04:28:00 Test Item Value Reference Range Interpretation Comments BUN (test code = BUN) 3 7-22 L [facility] CenterJrdtxaaMGWBJOBMO6941-55-92 04:28:00 Test Item Value Reference Range Interpretation Comments Glucose Lvl (test code = Glucose Lvl) 255 70-99 H [facility] CenterIeaxgwxTLZRDBDEI1880-17-47 04:28:00 Test Item Value Reference Range Interpretation Comments Total Protein (test code = Total 7.0 6.4-8.4 N Protein) [facility] CenterGhuoiupCJKOKTNTY1177-55-32 04:28:00 Test Item Value Reference Range Interpretation Comments Calcium Lvl (test code = Calcium Lvl) 8.7 8.5-10.5 N [facility] CenterQbvtszsYOLFILCFI1741-29-11 04:28:00 Test Item Value Reference Range Interpretation Comments CO2 (test code = CO2) 29 24-32 N [facility] CenterWzruxyxSTKCKWJQX3223-54-36 04:28:00 Test Item Value Reference Range Interpretation Comments Chloride Lvl (test code = Chloride Lvl) 104 95-109 N [facility] CenterPyyhjpyRHSHHOJKA6345-81-73 04:28:00 Test Item Value Reference Range Interpretation Comments Potassium Lvl (test code = Potassium 3.5 3.5-5.1 N Lvl) [facility] CenterZyzwpekYQHRACATL9347-29-13 04:28:00 Test Item Value Reference Range Interpretation Comments Sodium Lvl (test code = Sodium Lvl) 140 135-145 N [facility] CenterWjzobzqYZCVGSMEHE4615-42-47 04:28:00 Test Item Value Reference Range Interpretation Comments PROTIME (test code = PROTIME) 12.1 s 12.0-14.7 N [facility] CenterLffqpzlVKWEJUQJGE7943-59-92 04:28:00 Test Item Value Reference Range Interpretation Comments aPTT (test code = aPTT) 39.0 s 22.9-35.8 H [facility] CenterIhtqbxhBERXUNUBYF7717-31-40 04:28:00 Test Item Value Reference Range Interpretation Comments INR (test code = INR) 0.90 0.85-1.17 N [facility] CenterTdgvgzcWEYWPEZFRD6834-69-10 04:28:00 Test Item Value Reference Range Interpretation Comments MCH (test code = MCH) 29.4 pg 27.0-31.0 N [facility] CenterHiseppnGRLQKQJKSE8284-17-47 04:28:00 Test Item Value Reference Range Interpretation Comments MCV (test code = MCV) 86.1 81.0-99.0 N [facility] CenterJboxezePEPDYYFAGI2282-14-98 04:28:00 Test Item Value Reference Range Interpretation Comments Hct (test code = Hct) 29.4 36.0-48.0 L [facility] CenterVonxazzUIMVKYXUAI9176-85-67 04:28:00 Test Item Value Reference Range Interpretation Comments RDW (test code = RDW) 14.0 11.5-14.5 N [facility] CenterKskbouwOUQSCZDIOA6870-73-29 04:28:00 Test Item Value Reference Range Interpretation Comments WBC X 10x3 (test code = WBC X 10x3) 6.2 3.7-10.4 N [facility] CenterIcdvnjuEDTATQVELD7095-94-49 04:28:00 Test Item Value Reference Range Interpretation Comments Platelet (test code = Platelet) 178 133-450 N [facility] CenterEwgfxyiLKZBKLKNLD5164-73-21 04:28:00 Test Item Value Reference Range Interpretation Comments MCHC (test code = MCHC) 34.1 32.0-36.0 N [facility] CenterGyuppzeUGIVEKBSTG1640-35-33 04:28:00 Test Item Value Reference Range Interpretation Comments RBC X 10x6 (test code = RBC X 10x6) 3.41 4.20-5.40 L [facility] CenterNcjzhxcQUBBLNLQXO3362-29-83 04:28:00 Test Item Value Reference Range Interpretation Comments Hgb (test code = Hgb) 10.0 12.0-16.0 L [facility] CenterPikmvmwIHFIODKAEY5126-41-83 04:28:00 Test Item Value Reference Range Interpretation Comments MPV (test code = MPV) 10.1 7.4-10.4 N [facility] CenterOmxdhecTCOUXGALRC8867-10-23 04:28:00 Test Item Value Reference Range Interpretation Comments Segs-Bands # (test code = Segs-Bands #) 4.4 1.5-8.1 N [facility] CenterPggkxskARGAGKMUBQ1713-49-07 04:28:00 Test Item Value Reference Range Interpretation Comments Basophils (test code = 0.7 See_Comment N [Aut omated message] The Basophils) system which ge nerated this result tra nsmitted reference range : <=1.0. The reference r leo was not used to int erpret this result as normal/abnormal . [facility] CenterSjqpcbzHPEFMZECFN8511-14-98 04:28:00 Test Item Value Reference Range Interpretation Comments Segs (test code = Segs) 70.7 45.0-75.0 N [facility] CenterYahjlqfGXICHRXHUI8221-63-43 04:28:00 Test Item Value Reference Range Interpretation Comments Monocytes # (test code 0.3 See_Comment N [Aut omated message] The = Monocytes #) system which generated this result tra nsmitted reference range : <=0.8. The reference r leo was not used to int erpret this result as normal/abnormal . [facility] CenterZlbawrnXWDFKJKXTO4878-30-51 04:28:00 Test Item Value Reference Range Interpretation Comments Lymphocytes # (test code = Lymphocytes 1.2 1.0-5.5 N #) [facility] CenterDrcntdxISTTEIGCGK1032-19-78 04:28:00 Test Item Value Reference Range Interpretation Comments Monocytes (test code = Monocytes) 4.5 2.0-12.0 N [facility] CenterVmemxuqWARPNXILMT2669-88-19 04:28:00 Test Item Value Reference Range Interpretation Comments Eosinophils (test code = 4.1 See_Comment H [A utomated message] The Eosinophils) system which ge nerated this result tra nsmitted reference range : <=4.0. The reference r leo was not used to int erpret this result as normal/abnormal . [facility] CenterLesihjgHEZBAELXAC2678-82-06 04:28:00 Test Item Value Reference Range Interpretation Comments Lymphocytes (test code = Lymphocytes) 20.0 20.0-40.0 N [facility] CenterPvxjmvmHUFDTFIMOO2604-53-33 04:28:00 Test Item Value Reference Range Interpretation Comments Basophils # (test code 0.0 See_Comment N [Aut omated message] The = Basophils #) system which generated this result tra nsmitted reference range : <=0.2. The reference r leo was not used to int erpret this result as normal/abnormal . [facility] CenterKxazzgrPCWXTXXHEC4523-16-97 04:28:00 Test Item Value Reference Range Interpretation Comments Eosinophils # (test code 0.3 See_Comment N [A utomated message] The = Eosinophils #) system whic h generated this result tra nsmitted reference range : <=0.5. The reference r leo was not used to int erpret this result as normal/abnormal . [facility] GLUCOSE SWIFGFV0177-29-27 01:12:00 Test Item Value Reference Range Interpretation Comments Gluc POC Lifscn (test code = Gluc POC 260 70-99 H Lifscn) [facility] GLUCOSE CWQMFBE9974-44-25 01:12:00 Test Item Value Reference Range Interpretation Comments Comment1 (test code = Comment1) Ravi MAYS/MD [facility]DwxdzcrWXQBRMNYGG8542-23-90 23:40:00 Test Item Value Reference Range Interpretation Comments UA Protein (test code = Trace A UA Protein) *ABN*(03/14/2012 18:40:00) [facility]DylislxPKOBBZKOPF4481-69-71 23:40:00 Test Item Value Reference Range Interpretation Comments UA pH (test code = UA pH) 6.0 1 5.0-8.0 N [facility] CenterHwmyfhyPHKCUIDZYC3993-14-44 23:40:00 Test Item Value Reference Range Interpretation Comments UA Ketones (test code = >=80 mg/dL UA Ketones) *NA*(03/14/2012 18:40:00) [facility] CenterVxbqmajOQYUWKGNFU7964-19-50 23:40:00 Test Item Value Reference Range Interpretation Comments UA Glucose (test code = >=1000 mg/dL A UA Glucose) *ABN*(03/14/2012 18:40:00) [facility]aBkccgquUJMJAVFGVV1273-05-91 23:40:00 Test Item Value Reference Range Interpretation Comments UA Blood (test code = Negative (03/14/2012 N UA Blood) 18:40:00) [facility]aZmjzeoqUWJQAYNOMN1765-18-65 23:40:00 Test Item Value Reference Range Interpretation Comments UA Nitrite (test code Negative (03/14/2012 N = UA Nitrite) 18:40:00) [facility]aBsgqbmgOXLWZNMXSX3239-32-16 23:40:00 Test Item Value Reference Range Interpretation Comments UA Urobilinogen (test code = UA 0.2 0.1-1.0 N Urobilinogen) [facility] CenterOuxpnipNFREPSNSXE7975-34-21 23:40:00 Test Item Value Reference Range Interpretation Comments UA Leuk Est (test Negative (03/14/2012 N code = UA Leuk Est) 18:40:00) [facility]CmnsnqmBAPBPRIVUR1083-85-05 23:40:00 Test Item Value Reference Range Interpretation Comments UA Bili (test code = Negative *NA*(03/14/2012 UA Bili) 18:40:00) [facility] CenterCqqunmbNZDVGPSFHK1237-53-67 23:40:00 Test Item Value Reference Range Interpretation Comments UA Turbidity (test code = Clear (03/14/2012 N UA Turbidity) 18:40:00) [facility] CenterXwwjodwQIWVFUQZYT3151-69-42 23:40:00 Test Item Value Reference Range Interpretation Comments UA Color (test code = Yellow *NA*(03/14/2012 UA Color) 18:40:00) [facility] CenterMlvvadzVAMRLIKIQN3960-56-47 23:40:00 Test Item Value Reference Range Interpretation Comments UA Spec Grav (test >=1.030 A code = UA Spec Grav) *ABN*(03/14/2012 18:40:00) [facility] CenterEwnpvmbOIEZSTNPFL2598-33-62 23:40:00 Test Item Value Reference Range Interpretation Comments UA Sq Epi (test code Occasional /LPF N = UA Sq Epi) (03/14/2012 18:40:00) [facility] CenterLdvflsnNUKOWBPLVN4133-23-37 23:40:00 Test Item Value Reference Range Interpretation Comments UA WBC (test code = UA 3-5 /HPF (03/14/2012 N WBC) 18:40:00) [facility] CenterIlbhqlfDYIYLCXFWY6151-96-67 23:40:00 Test Item Value Reference Range Interpretation Comments UA Bacteria (test code Occasional /HPF N = UA Bacteria) (03/14/2012 18:40:00) [facility] CenterDsouhcxTJNZVSOKH7522-97-21 22:50:00 Test Item Value Reference Range Interpretation Comments S Preg (test code = S Negative *NA*(03/14/2012 Preg) 17:50:00) [facility] CenterQkytfafUYUZUVKGW7973-94-51 22:50:00 Test Item Value Reference Range Interpretation Comments Lipase Lvl (test code = Lipase Lvl) 45 73-393 L [facility] CenterBpordiwNYCMJXSMK4528-12-70 22:50:00 Test Item Value Reference Range Interpretation Comments A/G Ratio (test code = A/G Ratio) 1.2 0.7-1.6 N [facility] CenterEmrccygOSGCQTAUO7564-16-84 22:50:00 Test Item Value Reference Range Interpretation Comments Globulin (test code = Globulin) 3.8 2.0-4.0 N [facility] CenterJyjptldCFXQCEBBA8114-10-58 22:50:00 Test Item Value Reference Range Interpretation Comments B/C Ratio (test code = B/C Ratio) 21 6-25 N [facility] CenterJvlhundWKJVOIUDW9504-21-86 22:50:00 Test Item Value Reference Range Interpretation Comments AGAP (test code = AGAP) 16.8 10.0-20.0 N [facility] CenterShgvxixPWOCJENQJ2018-78-94 22:50:00 Test Item Value Reference Range Interpretation Comments Bili Total (test code = Bili Total) 1.1 0.2-1.3 N [facility] CenterQrdvkewMMSDYGPMV0988-22-37 22:50:00 Test Item Value Reference Range Interpretation Comments Total Protein (test code = Total 8.2 6.4-8.4 N Protein) [facility] CenterHcchknuGRLYJUWWD7260-39-90 22:50:00 Test Item Value Reference Range Interpretation Comments Potassium Lvl (test code = Potassium 3.8 3.5-5.1 N Lvl) [facility] CenterUhlsfubBABHBTVAC8445-82-08 22:50:00 Test Item Value Reference Range Interpretation Comments Creatinine Lvl (test code = Creatinine 0.7 0.5-1.4 N Lvl) [facility] CenterDusyyreRAZUXCAGE5018-20-06 22:50:00 Test Item Value Reference Range Interpretation Comments Sodium Lvl (test code = Sodium Lvl) 139 135-145 N [facility] CenterGgycdkrPBJZPJDGV7066-92-88 22:50:00 Test Item Value Reference Range Interpretation Comments Chloride Lvl (test code = Chloride Lvl) 99 95-109 N [facility] CenterMtuzuuuIARNFKYAP0728-00-92 22:50:00 Test Item Value Reference Range Interpretation Comments CO2 (test code = CO2) 27 24-32 N [facility] CenterVkorcysVZXYMREHK4502-52-54 22:50:00 Test Item Value Reference Range Interpretation Comments Glucose Lvl (test code = Glucose Lvl) 301 70-99 H [facility] CenterQmgiekoBIEVFYCEE8619-96-00 22:50:00 Test Item Value Reference Range Interpretation Comments BUN (test code = BUN) 15 7-22 N [facility] CenterWvpnhluVAWLEASHT5723-98-55 22:50:00 Test Item Value Reference Range Interpretation Comments ALT (test code = ALT) 24 See_Comment N [Auto mated message] The system which ge nerated this result transmit rohit reference range : <=65. The reference range was not used to interpr et this result as reji l/abnormal. [facility] CenterIxuxwrfMNLQPNHVW2562-71-95 22:50:00 Test Item Value Reference Range Interpretation Comments AST (test code = AST) 20 See_Comment N [Auto mated message] The system which ge nerated this result transmit rohit reference range : <=37. The reference range was not used to interpr et this result as reji l/abnormal. [facility] CenterWnldylmJERFBRVAG2979-56-40 22:50:00 Test Item Value Reference Range Interpretation Comments Alk Phos (test code = Alk Phos) 67 39-136 N [facility] CenterOmtfjnlVZKEANKDY6711-85-24 22:50:00 Test Item Value Reference Range Interpretation Comments Albumin Lvl (test code = Albumin Lvl) 4.4 3.5-5.0 N [facility] CenterTgxwoqiPVXGYYDIN6038-95-48 22:50:00 Test Item Value Reference Range Interpretation Comments Calcium Lvl (test code = Calcium Lvl) 9.9 8.5-10.5 N [facility] CenterTyttjbsKBCHLGZZUV8465-72-20 22:50:00 Test Item Value Reference Range Interpretation Comments MPV (test code = MPV) 11.8 7.4-10.4 H [facility] CenterLohgydlRYJWFSZSNH0965-22-10 22:50:00 Test Item Value Reference Range Interpretation Comments MCHC (test code = MCHC) 35.9 32.0-36.0 N [facility] CenterMmzlkscGIGZMSOMSK0379-10-61 22:50:00 Test Item Value Reference Range Interpretation Comments MCH (test code = MCH) 31.2 pg 27.0-31.0 H [facility] CenterSbwicmmATGGWWOUAX3351-22-32 22:50:00 Test Item Value Reference Range Interpretation Comments Platelet (test code = Platelet) 189 133-450 N [facility] CenterBhqlcqrFEQJBEDWVT3422-35-77 22:50:00 Test Item Value Reference Range Interpretation Comments RDW (test code = RDW) 13.1 11.5-14.5 N [facility] CenterKudyyulUHEVJTIXYW9354-47-64 22:50:00 Test Item Value Reference Range Interpretation Comments Hct (test code = Hct) 40.7 36.0-48.0 N [facility] CenterVfbdnubPFPBBVRNGX9679-29-45 22:50:00 Test Item Value Reference Range Interpretation Comments Hgb (test code = Hgb) 14.6 12.0-16.0 N [facility] CenterWnvgygcOWPMRTEACF1834-84-88 22:50:00 Test Item Value Reference Range Interpretation Comments MCV (test code = MCV) 87.0 81.0-99.0 N [facility] CenterSkpcdmuYAWWPTNJQO8099-24-96 22:50:00 Test Item Value Reference Range Interpretation Comments WBC (test code = WBC) 11.7 3.7-10.4 H [facility] CenterKzgprlvKYXULBNNXI5678-61-65 22:50:00 Test Item Value Reference Range Interpretation Comments RBC (test code = RBC) 4.68 4.20-5.40 N [facility] CenterXfqgtsmXKCNQTUDTN5207-13-09 22:50:00 Test Item Value Reference Range Interpretation Comments Basophils # (test code 0.0 See_Comment N [Aut omated message] The = Basophils #) system which generated this result tra nsmitted reference range : <=0.2. The reference r leo was not used to int erpret this result as normal/abnormal . [facility] CenterLpztovjKIGMWUMUZW4476-57-06 22:50:00 Test Item Value Reference Range Interpretation Comments Basophils (test code = 0.2 See_Comment N [Aut omated message] The Basophils) system which ge nerated this result tra nsmitted reference range : <=1.0. The reference r leo was not used to int erpret this result as normal/abnormal . [facility] CenterUjqikrqPMGEZOQDAG0571-17-93 22:50:00 Test Item Value Reference Range Interpretation Comments Eosinophils # (test code 0.0 See_Comment N [A utomated message] The = Eosinophils #) system [facility] h generated this result tra nsmitted reference range : <=0.5. The reference r leo was not used to int erpret this result as normal/abnormal . [facility] CenterTbvwtycUXAIFCXRHB2796-61-28 22:50:00 Test Item Value Reference Range Interpretation Comments Monocytes # (test code 0.4 See_Comment N [Aut omated message] The = Monocytes #) system which generated this result tra nsmitted reference range : <=0.8. The reference r leo was not used to int erpret this result as normal/abnormal . [facility] CenterTrbngliMREDXEQCUO4899-75-79 22:50:00 Test Item Value Reference Range Interpretation Comments Segs-Bands # (test code = Segs-Bands #) 10.6 1.5-8.1 H [facility] CenterUqnserkLKWOZTPOAD0822-26-65 22:50:00 Test Item Value Reference Range Interpretation Comments Lymphocytes # (test code = Lymphocytes 0.7 1.0-5.5 L #) [facility] CenterEmpbsmzHLRKIFVSTN5578-71-25 22:50:00 Test Item Value Reference Range Interpretation Comments Monocytes (test code = Monocytes) 3.4 2.0-12.0 N [facility] CenterJxvaejyIQIGJSAYPQ6181-47-92 22:50:00 Test Item Value Reference Range Interpretation Comments Plt Morph (test code = Normal (03/14/2012 N Plt Morph) 17:50:00) [facility] CenterOexhcttLHUOEDVYKM7580-06-45 22:50:00 Test Item Value Reference Range Interpretation Comments Lymphocytes (test code = Lymphocytes) 6.0 20.0-40.0 L [facility] CenterCvauarbXKMARZXRZT7160-03-70 22:50:00 Test Item Value Reference Range Interpretation Comments Eosinophils (test code = 0.0 See_Comment N [A utomated message] The Eosinophils) system which ge nerated this result tra nsmitted reference range : <=4.0. The reference r loe was not used to int erpret this result as normal/abnormal . [facility] CenterEyzozhkDOZUAAZCLO4740-34-65 22:50:00 Test Item Value Reference Range Interpretation Comments Segs (test code = Segs) 90.4 45.0-75.0 H [facility] CenterYtozsggWFRFWFHVBQ6564-35-70 22:50:00 Test Item Value Reference Range Interpretation Comments RBC Morph (test code = Normal (03/14/2012 N RBC Morph) 17:50:00) [facility] GLUCOSE UZHACPK2828-58-01 23:43:00 Test Item Value Reference Range Interpretation Comments Gluc POC Lifscn (test code = Gluc POC 167 70-99 H Lifscn) [facility] GLUCOSE XRYEQIY5321-60-34 23:43:00 Test Item Value Reference Range Interpretation Comments Comment1 (test code = Comment1) Notify RN/ [facility] GLUCOSE YNIDBUJ4548-37-16 23:43:00 Test Item Value Reference Range Interpretation Comments Comment2 (test code = Comment2) Sliding Scale [facility] GLUCOSE POIFGWV1497-11-24 17:40:00 Test Item Value Reference Range Interpretation Comments Gluc POC Lifscn (test code = Gluc POC 189 70-99 H Lifscn) [facility] GLUCOSE MSCGYEH5962-69-73 17:40:00 Test Item Value Reference Range Interpretation Comments Comment1 (test code = Comment1) Notify RN/ [facility] GLUCOSE EFPQKQA9182-88-89 17:40:00 Test Item Value Reference Range Interpretation Comments Comment2 (test code = Comment2) Sliding Scale [facility] GLUCOSE BNBKRLM0326-21-00 13:34:00 Test Item Value Reference Range Interpretation Comments Comment2 (test code = Comment2) Sliding Scale [facility] GLUCOSE YPBQSOI7389-23-64 13:34:00 Test Item Value Reference Range Interpretation Comments Gluc POC Lifscn (test code = Gluc POC 110 70-99 H Lifscn) [facility] GLUCOSE XLXRPJJ5139-24-44 13:34:00 Test Item Value Reference Range Interpretation Comments Comment1 (test code = Comment1) [facility]:00:00 Test Item Value Reference Range Interpretation Comments U Preg (test code = U Negative (11/28/2011 N Preg) 19:00:00) [facility]EagisndBQAIOZAAHY6747-14-95 00:00:00 Test Item Value Reference Range Interpretation Comments Micro? (test code = Performed (11/28/2011 N Micro?) 19:00:00) [facility]HjhyosiEDQJBHYRBD5841-12-75 00:00:00 Test Item Value Reference Range Interpretation Comments UA Sq Epi (test code Occasional /LPF N = UA Sq Epi) (11/28/2011 19:00:00) [facility]aLkwteztTJPGQCSELH8710-40-63 00:00:00 Test Item Value Reference Range Interpretation Comments UA RBC (test None Seen See_Comment N [Automated mes pastor] code = UA RBC) (11/28/2011 The system wh ich 19:00:00) generated this result transmitted ref erence range: <=2. The reference range was not used to int erpret this result as normal/abnormal . [facility]VqtsphfOKXCDQGHID0633-19-38 00:00:00 Test Item Value Reference Range Interpretation Comments UA WBC (test code Occasional See_Comment [Automate d message] The = UA WBC) system which ge nerated this result tra nsmitted reference range : <=5. The reference range was not used to interpr et this result as normal/abnormal . [facility] CenterSwqtwiwNNOTOCYXAW3991-87-72 00:00:00 Test Item Value Reference Range Interpretation Comments UA Protein (test code Negative mg/dL N = UA Protein) (11/28/2011 19:00:00) [facility] CenterCubrbgdEDJMIFVDRL3218-15-20 00:00:00 Test Item Value Reference Range Interpretation Comments UA pH (test code = UA pH) 7.0 1 5.0-8.0 N [facility] CenterAwhglqqTIECLSWVII0165-86-97 00:00:00 Test Item Value Reference Range Interpretation Comments UA Spec Grav (test code = UA Spec 1.020 1 N Grav) [facility] CenterAvjjlfkBEIFNLFEWO5016-10-46 00:00:00 Test Item Value Reference Range Interpretation Comments UA Turbidity (test code = Clear (11/28/2011 N UA Turbidity) 19:00:00) [facility] CenterQvtfvxaSWDSBILJAM6010-90-56 00:00:00 Test Item Value Reference Range Interpretation Comments UA Color (test code = Yellow *NA*(11/28/2011 UA Color) 19:00:00) [facility]HkwsuzlDMAWEGLGUN3948-58-18 00:00:00 Test Item Value Reference Range Interpretation Comments UA Urobilinogen (test code = UA 0.2 0.1-1.0 N Urobilinogen) [facility] CenterIubyruhNYETEVYKPF0409-01-73 00:00:00 Test Item Value Reference Range Interpretation Comments UA Blood (test code = Negative (11/28/2011 N UA Blood) 19:00:00) [facility] CenterKdovoakUHKVSAATXQ0189-27-47 00:00:00 Test Item Value Reference Range Interpretation Comments UA Bili (test code = Negative *NA*(11/28/2011 UA Bili) 19:00:00) [facility] CenterBjjucxvYCOSXIEEDE0222-06-86 00:00:00 Test Item Value Reference Range Interpretation Comments UA Ketones (test code = >=80 mg/dL A UA Ketones) *ABN*(11/28/2011 19:00:00) [facility] CenterJesillwGQONYSJLAX0731-78-54 00:00:00 Test Item Value Reference Range Interpretation Comments UA Glucose (test code = >=1000 mg/dL A UA Glucose) *ABN*(11/28/2011 19:00:00) [facility]YlfpmkpWVXSBPNSLT4768-62-92 00:00:00 Test Item Value Reference Range Interpretation Comments UA Nitrite (test code Negative (11/28/2011 N = UA Nitrite) 19:00:00) [facility]TDAGDDE9342[facility]-79 [facility]:00 Test Item Value Reference Range Interpretation Comments UA Leuk Est (test Negative (11/28/2011 N code = UA Leuk Est) 19:00:00) [facility]YkbnmpgKMMFTFFNP1029-13-69 20:41:00 Test Item Value Reference Range Interpretation Comments pO2 Roberth (test code = pO2 Roberth) 60 20-49 H [facility] CenterQtunuuuTFQQUOEZY6870-61-26 20:41:00 Test Item Value Reference Range Interpretation Comments pCO2 Roberth (test code = pCO2 Roberth) 41 38-52 N [facility] CenterQlplimsROOIIKJQR3906-06-28 20:41:00 Test Item Value Reference Range Interpretation Comments pH Roberth (test code = pH Roberth) 7.45 7.28-7.42 H [facility] CenterJyddafaYCQNKNRWQ3414-40-34 20:41:00 Test Item Value Reference Range Interpretation Comments Temp Roberth (test code = Temp Roberth) 37.0 [facility] CenterBmoeclmOCENWTPFU7469-65-51 20:41:00 Test Item Value Reference Range Interpretation Comments O2 Sat Roberth (test code = O2 Sat Roberth) 92.0 40.0-70.0 H [facility] CenterXdmgiiiNPCEJXKOD3033-54-91 20:41:00 Test Item Value Reference Range Interpretation Comments BE Roberth (test code = 4 See_Comment H [Automa rohit message] The BE Roberth) system which ge nerated this result transmit rohit reference range : <=2. The reference range was not used to interpr et this result as reji l/abnormal. [facility] CenterDbwtvwiYTUTCVINR2019-70-24 20:41:00 Test Item Value Reference Range Interpretation Comments HCO3 Roberth (test code = HCO3 Roberth) 28.5 22.0-26.0 H [facility] CenterMxsngdzEFDWENWZD4634-66-29 20:00:00 Test Item Value Reference Range Interpretation Comments Lactic Acid Lvl (test code = Lactic 1.6 0.5-2.2 N Acid Lvl) [facility] CenterCpcsncpEVTZCTKUN4307-23-80 20:00:00 Test Item Value Reference Range Interpretation Comments Lipase Lvl (test code = Lipase Lvl) 125 73-393 N [facility] CenterTnmdzkbLPIVBJJEK7165-01-36 20:00:00 Test Item Value Reference Range Interpretation Comments Albumin Lvl (test code = Albumin Lvl) 4.2 3.5-5.0 N [facility] CenterBivwierQBOUDLFEC4725-00-31 20:00:00 Test Item Value Reference Range Interpretation Comments CO2 (test code = CO2) 23 24-32 L [facility] CenterIeewbxtUCIVEBMVN3378-00-94 20:00:00 Test Item Value Reference Range Interpretation Comments Chloride Lvl (test code = Chloride Lvl) 98 95-109 N [facility] CenterZgpfnhdRCSWPCHQJ4201-92-83 20:00:00 Test Item Value Reference Range Interpretation Comments Potassium Lvl (test code = Potassium 3.8 3.5-5.1 N Lvl) [facility] CenterOvdpaeuVHKLEAPHL9008-00-90 20:00:00 Test Item Value Reference Range Interpretation Comments Sodium Lvl (test code = Sodium Lvl) 138 135-145 N [facility] CenterVdbwbdzQLTVSQAAY0188-04-24 20:00:00 Test Item Value Reference Range Interpretation Comments Creatinine Lvl (test code = Creatinine 0.7 0.5-1.4 N Lvl) [facility] CenterVntuwdzFIVEFOWYF4528-40-75 20:00:00 Test Item Value Reference Range Interpretation Comments BUN (test code = BUN) 9 7-22 N [facility] CenterRyzffbfBPFCSXCGR2607-20-04 20:00:00 Test Item Value Reference Range Interpretation Comments Glucose Lvl (test code = Glucose Lvl) 269 70-99 H [facility] CenterQjbuklnNVHEJDMUY3852-18-98 20:00:00 Test Item Value Reference Range Interpretation Comments B/C Ratio (test code = B/C Ratio) 13 6-25 N [facility] CenterSbvgvvsHHXIFLITB8726-69-25 20:00:00 Test Item Value Reference Range Interpretation Comments AGAP (test code = AGAP) 20.8 10.0-20.0 H [facility] CenterEsjoileQAZIWHVDY3481-81-31 20:00:00 Test Item Value Reference Range Interpretation Comments Calcium Lvl (test code = Calcium Lvl) 9.3 8.5-10.5 N [facility] CenterSleofvjKMWWGXDXW4716-39-62 20:00:00 Test Item Value Reference Range Interpretation Comments Total Protein (test code = Total 6.7 6.4-8.4 N Protein) [facility] CenterVezpweqHAYFVFNQY7775-26-19 20:00:00 Test Item Value Reference Range Interpretation Comments A/G Ratio (test code = A/G Ratio) 1.7 0.7-1.6 H [facility] CenterCfpmpvlXSREZQNNO6548-65-57 20:00:00 Test Item Value Reference Range Interpretation Comments Globulin (test code = Globulin) 2.5 2.0-4.0 N [facility] CenterCuursbsNRLONVSDM2604-69-29 20:00:00 Test Item Value Reference Range Interpretation Comments AST (test code = AST) 18 See_Comment N [Auto mated message] The system which ge nerated this result transmit rohit reference range : <=37. The reference range was not used to interpr et this result as reji l/abnormal. [facility] CenterYgpmdscGJGHIFFHG5601-06-71 20:00:00 Test Item Value Reference Range Interpretation Comments Alk Phos (test code = Alk Phos) 62 39-136 N [facility] CenterKvlsiseIRVQWYMSK8888-29-91 20:00:00 Test Item Value Reference Range Interpretation Comments ALT (test code = ALT) 32 See_Comment N [Auto mated message] The system which ge nerated this result transmit rohit reference range : <=65. The reference range was not used to interpr et this result as reji l/abnormal. [facility] CenterHiazvkxQOCYCKGNA9934-22-55 20:00:00 Test Item Value Reference Range Interpretation Comments Bili Total (test code = Bili Total) 0.7 0.2-1.3 N [facility] CenterAuffpzcOFRSMRYPTN0992-59-23 20:00:00 Test Item Value Reference Range Interpretation Comments Anisocyte (test code = 1+ *ABN*(11/28/2011 A Anisocyte) 15:00:00) [facility] CenterChkknnsOPBHRZXBOM4730-51-96 20:00:00 Test Item Value Reference Range Interpretation Comments Monocytes # (test code 0.1 See_Comment N [Aut omated message] The = Monocytes #) system which generated this result tra nsmitted reference range : <=0.8. The reference r leo was not used to int erpret this result as normal/abnormal . [facility] CenterRtddslfJNOOZOIHGM5482-72-22 20:00:00 Test Item Value Reference Range Interpretation Comments Eosinophils # (test code 0.0 See_Comment N [A utomated message] The = Eosinophils #) system whic h generated this result tra nsmitted reference range : <=0.5. The reference r leo was not used to int erpret this result as normal/abnormal . [facility] CenterXcfhiqoSSYGVUWSEC7685-43-85 20:00:00 Test Item Value Reference Range Interpretation Comments Basophils # (test code 0.0 See_Comment N [Aut omated message] The = Basophils #) system which generated this result tra nsmitted reference range : <=0.2. The reference r leo was not used to int erpret this result as normal/abnormal . [facility] CenterSeavzdaUZLGGGIINW8833-84-65 20:00:00 Test Item Value Reference Range Interpretation Comments Neut Vac (test code = Slight *ABN*(11/28/2011 A Neut Vac) 15:00:00) [facility] CenterSlqmqmlHONBNLFPZT9076-39-26 20:00:00 Test Item Value Reference Range Interpretation Comments Large Plt (test code = Slight *ABN*(11/28/2011 A Large Plt) 15:00:00) [facility] CenterAbslhqcBSWFYIMNYJ2884-13-26 20:00:00 Test Item Value Reference Range Interpretation Comments Segs-Bands # (test code = Segs-Bands #) 5.7 1.5-8.1 N [facility] CenterDttlqgyUVVQWNYQUP1970-06-14 20:00:00 Test Item Value Reference Range Interpretation Comments Lymphocytes # (test code = Lymphocytes 0.8 1.0-5.5 L #) [facility] CenterNnwvwujXWPBVBXJNB6218-16-07 20:00:00 Test Item Value Reference Range Interpretation Comments Eosinophils (test code = 0.2 See_Comment N [A utomated message] The Eosinophils) system which ge nerated this result tra nsmitted reference range : <=4.0. The reference r leo was not used to int erpret this result as normal/abnormal . [facility] CenterCyadsjlKVTYSNTJBR6725-00-63 20:00:00 Test Item Value Reference Range Interpretation Comments Basophils (test code = 0.0 See_Comment N [Aut omated message] The Basophils) system which ge nerated this result tra nsmitted reference range : <=1.0. The reference r leo was not used to int erpret this result as normal/abnormal . [facility] CenterMoalqbmJWDDDEMIYQ8657-69-13 20:00:00 Test Item Value Reference Range Interpretation Comments Monocytes (test code = Monocytes) 1.9 2.0-12.0 L [facility] CenterYjixpzcMRNYNFWRLY1118-71-97 20:00:00 Test Item Value Reference Range Interpretation Comments Segs (test code = Segs) 86.2 45.0-75.0 H [facility] CenterPurpzjfMPSUNUPFJI6720-35-85 20:00:00 Test Item Value Reference Range Interpretation Comments Lymphocytes (test code = Lymphocytes) 11.7 20.0-40.0 L [facility] CenterCjthccqIWPXHSKWVT4817-95-39 20:00:00 Test Item Value Reference Range Interpretation Comments MPV (test code = MPV) 10.8 7.4-10.4 H [facility] CenterQfvadiwBMQEMJLLHO0394-76-24 20:00:00 Test Item Value Reference Range Interpretation Comments Platelet (test code = Platelet) 161 133-450 N [facility] CenterDlyehxpFFVEGKOXWB1433-87-96 20:00:00 Test Item Value Reference Range Interpretation Comments MCHC (test code = MCHC) 35.6 32.0-36.0 N [facility] CenterMckabyaSREIBXRXCF9133-55-65 20:00:00 Test Item Value Reference Range Interpretation Comments RDW (test code = RDW) 12.4 11.5-14.5 N [facility] CenterFvfhskwTEMMXMXAUW2663-69-82 20:00:00 Test Item Value Reference Range Interpretation Comments MCH (test code = MCH) 30.7 pg 27.0-31.0 N [facility] CenterTmsvovuSFPQOUEVFW1928-44-10 20:00:00 Test Item Value Reference Range Interpretation Comments MCV (test code = MCV) 86.1 81.0-99.0 N [facility] CenterBtvjzpqGRDIHJUIIZ9051-56-04 20:00:00 Test Item Value Reference Range Interpretation Comments Hct (test code = Hct) 33.6 36.0-48.0 L [facility] CenterXknogrqDGVYDSYRBB7504-40-70 20:00:00 Test Item Value Reference Range Interpretation Comments Hgb (test code = Hgb) 12.0 12.0-16.0 N [facility] CenterEfbfyqzKMFGQESVBX4295-29-86 20:00:00 Test Item Value Reference Range Interpretation Comments RBC (test code = RBC) 3.90 4.20-5.40 L [facility] CenterDhhmbypPGDKLBIOCX4306-53-06 20:00:00 Test Item Value Reference Range Interpretation Comments WBC (test code = WBC) 6.6 3.7-10.4 N [facility] CenterLsdpbhjKRWLQWSTV4200-63-93 19:51:00 Test Item Value Reference Range Interpretation Comments UDS Note (test code = See Note UDS Note) 5*NA*(11/28/2011 14:51:00) [facility] CenterUbszhesFMHYLVDJB5374-35-31 19:51:00 Test Item Value Reference Range Interpretation Comments U Phencyc Scr (test Negative code = U Phencyc Scr) *NA*(11/28/2011 14:51:00) [facility] CenterFaxlawcJHDHFMYRZ0009-12-17 19:51:00 Test Item Value Reference Range Interpretation Comments U Kelly Scr (test code Negative *NA*(11/28/2011 = U Kelly Scr) 14:51:00) [facility] CenterQzjnbclCCRQIYJHS0493-52-77 19:51:00 Test Item Value Reference Range Interpretation Comments U Amph Scr (test code Negative *NA*(11/28/2011 = U Amph Scr) 14:51:00) [facility] CenterMpcdvjkXSFVXRVKA3374-72-54 19:51:00 Test Item Value Reference Range Interpretation Comments U Opiate Scr (test Negative code = U Opiate Scr) *NA*(11/28/2011 14:51:00) [facility] CenterAjwrjwcAFDHJKIQK8383-40-14 19:51:00 Test Item Value Reference Range Interpretation Comments U Cocaine Scr (test Negative code = U Cocaine Scr) *NA*(11/28/2011 14:51:00) [facility] CenterRxdvnelEPOGDMQJM8191-80-61 19:51:00 Test Item Value Reference Range Interpretation Comments U Cannab Scr (test Negative code = U Cannab Scr) *NA*(11/28/2011 14:51:00) [facility] CenterVuwcyvmESHNZNRLC2080-42-70 19:51:00 Test Item Value Reference Range Interpretation Comments U Benzodia Scr (test Negative code = U Benzodia Scr) *NA*(11/28/2011 14:51:00) [facility] GLUCOSE QPPHWMK6586-82-96 16:20:00 Test Item Value Reference Range Interpretation Comments Comment1 (test code = Comment1) Ravi MAYS/ [facility] GLUCOSE SRGCNFV4161-21-02 16:20:00 Test Item Value Reference Range Interpretation Comments Gluc POC Lifscn (test code = Gluc POC 328 70-99 H Lifscn) [facility]NncjwsnEQMIRYCMQ0505-34-63 15:30:00 Test Item Value Reference Range Interpretation Comments U Preg (test code = U Negative (09/18/2011 N Preg) 10:30:00) [facility]aMhuipdeTEOCCXMYZM5844-00-75 15:30:00 Test Item Value Reference Range Interpretation Comments UA WBC (test code = UA None Seen (09/18/2011 N WBC) 10:30:00) [facility]aWrhuzklCDRGSZZBOE2925-73-87 15:30:00 Test Item Value Reference Range Interpretation Comments UA RBC (test None Seen See_Comment N [Automated mes pastor] code = UA RBC) (09/18/2011 The system wh ich 10:30:00) generated this result transmitted ref erence range: <=2. The reference range was not used to int erpret this result as normal/abnormal . [facility]aXtlclbzLDYPZCXVZH0487-62-06 15:30:00 Test Item Value Reference Range Interpretation Comments UA Bacteria (test code = None Seen (09/18/2011 N UA Bacteria) 10:30:00) [facility]aXcqvbtgWHTYEIASOI4907-48-12 15:30:00 Test Item Value Reference Range Interpretation Comments UA Amorph Destiny (test Few /HPF A code = UA Amorph Destiny) *ABN*(09/18/2011 10:30:00) [facility] CenterUviqxzsNDCWUOJSAH8429-22-75 15:30:00 Test Item Value Reference Range Interpretation Comments Micro? (test code = Performed (09/18/2011 N Micro?) 10:30:00) [facility]aXobxgvrBJVWPGZPHT8311-80-69 15:30:00 Test Item Value Reference Range Interpretation Comments UA Sq Epi (test code = Rare /LPF (09/18/2011 N UA Sq Epi) 10:30:00) [facility]aCzmglzfNWBEKSSXOE6445-82-66 15:30:00 Test Item Value Reference Range Interpretation Comments UA Ketones (test code = 15 mg/dL A UA Ketones) *ABN*(09/18/2011 10:30:00) [facility]aZakukygTKSQCWQBIN9957-99-75 15:30:00 Test Item Value Reference Range Interpretation Comments UA Glucose (test code = >=1000 mg/dL A UA Glucose) *ABN*(09/18/2011 10:30:00) [facility] CenterGazlwdcYNBOAIJHPL5700-77-08 15:30:00 Test Item Value Reference Range Interpretation Comments UA Protein (test code = Trace A UA Protein) *ABN*(09/18/2011 10:30:00) [facility] CenterWeqmicmYBAOVXFZAB1140-18-06 15:30:00 Test Item Value Reference Range Interpretation Comments UA Urobilinogen (test code = UA 0.2 0.1-1.0 N Urobilinogen) [facility] CenterMcwhmoxXOJAMPUJNU4234-99-36 15:30:00 Test Item Value Reference Range Interpretation Comments UA Blood (test code = Negative (09/18/2011 N UA Blood) 10:30:00) [facility] CenterOhqtibdWCXVKHZLDK6121-68-60 15:30:00 Test Item Value Reference Range Interpretation Comments UA Bili (test code = Negative *NA*(09/18/2011 UA Bili) 10:30:00) [facility] CenterDfuyttjMLDFARDCEZ0685-86-32 15:30:00 Test Item Value Reference Range Interpretation Comments UA Leuk Est (test Negative (09/18/2011 N code = UA Leuk Est) 10:30:00) [facility] CenterYfetttnXBLFQPJJTX0224-99-04 15:30:00 Test Item Value Reference Range Interpretation Comments UA Nitrite (test code Negative (09/18/2011 N = UA Nitrite) 10:30:00) [facility] CenterLmszqpwEGVXFKDIFI8274-20-37 15:30:00 Test Item Value Reference Range Interpretation Comments UA pH (test code = UA pH) 7.5 1 5.0-8.0 N [facility] CenterEszqrssANXPDIJLEV7210-69-94 15:30:00 Test Item Value Reference Range Interpretation Comments UA Spec Grav (test code = UA Spec 1.010 1 N Grav) [facility] CenterEfwcgrzVDJUWPOGUS1406-28-72 15:30:00 Test Item Value Reference Range Interpretation Comments UA Turbidity (test code Slight Cloudy N = UA Turbidity) (09/18/2011 10:30:00) [facility] CenterEpxexctKDGFEZTXLV0652-16-20 15:30:00 Test Item Value Reference Range Interpretation Comments UA Color (test code = Yellow *NA*(09/18/2011 UA Color) 10:30:00) [facility] CenterHtiefjwOYIFDVFGS2776-73-87 14:07:00 Test Item Value Reference Range Interpretation Comments Phosphorus (test code = Phosphorus) 4.4 2.5-4.5 N [facility] CenterBdwbhmbLMFULAYDP0774-84-22 14:07:00 Test Item Value Reference Range Interpretation Comments Magnesium Lvl (test code = Magnesium 1.6 1.8-2.4 L Lvl) [facility] UUIAOLG9725-81-25 14:01:00 Test Item Value Reference Range Interpretation Comments Gluc POC Lifscn (test code = Gluc POC no gt 70-99 A Lifscn) [facility] CenterMstkffeXEYQATIQX9119-10-84 13:52:00 Test Item Value Reference Range Interpretation Comments pO2 Roberth (test code = pO2 Roberth) 24 20-49 N [facility] CenterQyvthulSSNLBLHUX6469-46-08 13:52:00 Test Item Value Reference Range Interpretation Comments HCO3 Roberth (test code = HCO3 Roberth) 32.0 22.0-26.0 H [facility] CenterXcxrwoxPBFELQWSA2463-85-56 13:52:00 Test Item Value Reference Range Interpretation Comments pCO2 Roberth (test code = pCO2 Roberth) 44 38-52 N [facility] CenterOxkjylrXGXDEZJVT5982-55-71 13:52:00 Test Item Value Reference Range Interpretation Comments BE Roberth (test code = 7 See_Comment H [Automa rohit message] The BE Roberth) system which ge nerated this result transmit rohit reference range : <=2. The reference range was not used to interpr et this result as reji l/abnormal. [facility] CenterXaheprwDGJSVHMYF9741-41-49 13:52:00 Test Item Value Reference Range Interpretation Comments O2 Sat Roberth (test code = O2 Sat Roberth) 48.0 40.0-70.0 N [facility] CenterRqwewdjOHQFCBWGK6072-28-42 13:52:00 Test Item Value Reference Range Interpretation Comments Temp Roberth (test code = Temp Roberth) 37.0 [facility] CenterKaofzvzZNMZLGNMP5559-70-03 13:52:00 Test Item Value Reference Range Interpretation Comments pH Roberth (test code = pH Roberth) 7.47 7.28-7.42 H [facility] CenterZfonvusJJEDJGJCH8930-21-94 13:52:00 Test Item Value Reference Range Interpretation Comments Calcium Lvl (test code = Calcium Lvl) 10.1 8.5-10.5 N [facility] CenterCqzbcwtHTLJQNXSY4849-16-44 13:52:00 Test Item Value Reference Range Interpretation Comments Chloride Lvl (test code = Chloride Lvl) 92 95-109 L [facility] CenterJiiepclDXGICEFPA5752-87-37 13:52:00 Test Item Value Reference Range Interpretation Comments CO2 (test code = CO2) 30 24-32 N [facility] CenterZtadpnxXOPKSBZQU2570-39-67 13:52:00 Test Item Value Reference Range Interpretation Comments Potassium Lvl (test code = Potassium 3.5 3.5-5.1 N Lvl) [facility] CenterKuaaambOUZGAMRDF0184-56-12 13:52:00 Test Item Value Reference Range Interpretation Comments Sodium Lvl (test code = Sodium Lvl) 133 135-145 L [facility] CenterDadffkzLTLHJPCCL9966-27-02 13:52:00 Test Item Value Reference Range Interpretation Comments Creatinine Lvl (test code = Creatinine 1.3 0.5-1.4 N Lvl) [facility] CenterAglmwmmFTXRIRKLA8078-86-29 13:52:00 Test Item Value Reference Range Interpretation Comments Glucose Lvl (test code = Glucose Lvl) 383 70-99 H [facility] CenterGqejjsrIRTXCGKYR2851-33-35 13:52:00 Test Item Value Reference Range Interpretation Comments BUN (test code = BUN) 17 7-22 N [facility] CenterNruorllBKHZRHBXU2910-67-00 13:52:00 Test Item Value Reference Range Interpretation Comments AGAP (test code = AGAP) 14.5 10.0-20.0 N [facility] CenterWjgaexnVZQDYAVWSY9831-10-39 13:52:00 Test Item Value Reference Range Interpretation Comments MPV (test code = MPV) 12.0 7.4-10.4 H [facility] CenterNzugktrMRBUADTKBE9628-87-82 13:52:00 Test Item Value Reference Range Interpretation Comments Platelet (test code = Platelet) 226 133-450 N [facility] CenterXfflfqrZOQHLGGSPQ0869-26-82 13:52:00 Test Item Value Reference Range Interpretation Comments MCHC (test code = MCHC) 33.7 32.0-36.0 N [facility] CenterRpucmzzVPYDZXTZYV8735-03-38 13:52:00 Test Item Value Reference Range Interpretation Comments MCH (test code = MCH) 28.5 pg 27.0-31.0 N [facility] CenterIcispaiVXWXOLNNRU3113-53-67 13:52:00 Test Item Value Reference Range Interpretation Comments RDW (test code = RDW) 15.1 11.5-14.5 H [facility] CenterCibqxitRBQHZKIYXK3163-89-69 13:52:00 Test Item Value Reference Range Interpretation Comments MCV (test code = MCV) 84.6 81.0-99.0 N [facility] CenterDuuqzzkNWGHNWPFZL1190-32-06 13:52:00 Test Item Value Reference Range Interpretation Comments Hct (test code = Hct) 36.4 36.0-48.0 N [facility] CenterYqckxiqWJRMEMUBJU5499-55-08 13:52:00 Test Item Value Reference Range Interpretation Comments Hgb (test code = Hgb) 12.3 12.0-16.0 N [facility] CenterCekbrpeRHEIMTBUEL1058-96-69 13:52:00 Test Item Value Reference Range Interpretation Comments RBC (test code = RBC) 4.30 4.20-5.40 N [facility] CenterVnacxzbDKVLQKGYUT1223-44-43 13:52:00 Test Item Value Reference Range Interpretation Comments WBC (test code = WBC) 11.7 3.7-10.4 H [facility] CenterKnpclydNJOIOTFOCS9814-87-16 13:52:00 Test Item Value Reference Range Interpretation Comments Monocytes (test code = Monocytes) 2.9 2.0-12.0 N [facility] CenterZuqisibDWKZOOQTPE6028-82-21 13:52:00 Test Item Value Reference Range Interpretation Comments Eosinophils (test code = 0.2 See_Comment N [A utomated message] The Eosinophils) system which ge nerated this result tra nsmitted reference range : <=4.0. The reference r leo was not used to int erpret this result as normal/abnormal . [facility] CenterMdlvpceNQTOSCWEUX4432-84-26 13:52:00 Test Item Value Reference Range Interpretation Comments Basophils (test code = 0.0 See_Comment N [Aut omated message] The Basophils) system which ge nerated this result tra nsmitted reference range : <=1.0. The reference r leo was not used to int erpret this result as normal/abnormal . [facility] CenterPyyigdrGAFTZVKCFN6717-19-30 13:52:00 Test Item Value Reference Range Interpretation Comments Eosinophils # (test code 0.0 See_Comment N [A utomated message] The = Eosinophils #) system wh h generated this result tra nsmitted reference range : <=0.5. The reference r leo was not used to int erpret this result as normal/abnormal . [facility] CenterVnrghjcCOCWSUNXOF9525-22-61 13:52:00 Test Item Value Reference Range Interpretation Comments Monocytes # (test code 0.3 See_Comment N [Aut omated message] The = Monocytes #) system which generated this result tra nsmitted reference range : <=0.8. The reference r leo was not used to int erpret this result as normal/abnormal . [facility] CenterFinbtasBZIRZEUUEZ9012-61-67 13:52:00 Test Item Value Reference Range Interpretation Comments Segs (test code = Segs) 92.0 45.0-75.0 H [facility] CenterXqnqtwuYQBNWMRAGT9495-30-74 13:52:00 Test Item Value Reference Range Interpretation Comments Lymphocytes (test code = Lymphocytes) 4.9 20.0-40.0 L [facility] CenterKjwsrkxQBWREKGFQS0870-64-83 13:52:00 Test Item Value Reference Range Interpretation Comments Spherocyte (test code = Rare A Spherocyte) *ABN*(09/18/2011 08:52:00) [facility] CenterFjmdvlwJFAKJWHTGH5699-66-68 13:52:00 Test Item Value Reference Range Interpretation Comments Large Plt (test code = Slight *ABN*(09/18/2011 A Large Plt) 08:52:00) [facility] CenterGawogpyHQJZDQIXSU2510-13-94 13:52:00 Test Item Value Reference Range Interpretation Comments Microcyte (test code = 1+ *ABN*(09/18/2011 A Microcyte) 08:52:00) [facility] CenterKlhxdroCGWTUVDNQO9663-11-56 13:52:00 Test Item Value Reference Range Interpretation Comments Schistocyte (test code = Schistocyte) Rare [facility] CenterGjvtiobWVQEGPBSVN1227-70-30 13:52:00 Test Item Value Reference Range Interpretation Comments Macrocyte (test code = 1+ *ABN*(09/18/2011 A Macrocyte) 08:52:00) [facility] CenterGahhttsPMQFOEZWPY7482-06-50 13:52:00 Test Item Value Reference Range Interpretation Comments Lymphocytes # (test code = Lymphocytes 0.6 1.0-5.5 L #) [facility] CenterTqhjiqqQWPPLWSLHU7488-56-02 13:52:00 Test Item Value Reference Range Interpretation Comments Segs-Bands # (test code = Segs-Bands #) 10.8 1.5-8.1 [facility]jaLJXRP[facility]EUXX3881-58-17 13:52:00 Test Item Value Reference Range Interpretation Comments Basophils # (test code 0.0 See_Comment N [Aut omated message] The = Basophils #) system which generated this result tra nsmitted reference range : <=0.2. The reference r leo was not used to int erpret this result as normal/abnormal . [facility]hgnkahSRRJDMVDVA5968-59-81 13:52:00 Test Item Value Reference Range Interpretation Comments Anisocyte (test code = 1+ *ABN*(09/18/2011 A Anisocyte) 08:52:00) [facility]BthoyjrKOSKTRVMJC0018-48-43 13:52:00 Test Item Value Reference Range Interpretation Comments CDC-HIV 1/2 Ab (test Negative *NA*(09/18/2011 code = CDC-HIV 1/2 08:52:00) Ab) [facility] GLUCOSE [id number] 17:34:00 Test Item Value Reference Range Interpretation Comments Gluc POC Lifscn (test code = Gluc POC 215 70-99 H Lifscn) [facility] GLUCOSE IMFZDNY2386-45-74 17:34:00 Test Item Value Reference Range Interpretation Comments Comment1 (test code = Comment1) Notify RN/ [facility] GLUCOSE PJGYNGB2426-47-91 11:43:00 Test Item Value Reference Range Interpretation Comments Comment1 (test code = Comment1) Notify RN/ [facility] GLUCOSE XNWJYFR5881-98-36 11:43:00 Test Item Value Reference Range Interpretation Comments Gluc POC Lifscn (test code = Gluc POC 91 65-110 N Lifscn) [facility] GLUCOSE RUCLPEH7130-56-94 02:45:00 Test Item Value Reference Range Interpretation Comments Comment1 (test code = Comment1) Notify RN/ [facility] GLUCOSE UIAXQMS3343-70-08 02:45:00 Test Item Value Reference Range Interpretation Comments Gluc POC Lifscn (test code = Gluc POC 148 65-110 H Lifscn) [facility]XjevzmyIQHTBGGFF3046-03-70 08:47:00 Test Item Value Reference Range Interpretation Comments Sodium Lvl (test code = Sodium Lvl) 143 135-145 N [facility] CenterZipnotyLRSEKMEEK8066-55-51 08:47:00 Test Item Value Reference Range Interpretation Comments Glucose Lvl (test code = Glucose Lvl) 105 [facility] CenterMckmfdhGEYDIMCLZ9565-96-80 08:47:00 Test Item Value Reference Range Interpretation Comments CO2 (test code = CO2) 29 24-32 N [facility] CenterVmgeemaKTVSXNAZW0118-34-02 08:47:00 Test Item Value Reference Range Interpretation Comments Chloride Lvl (test code = Chloride Lvl) 103 95-109 N [facility] CenterWvyvnjqCSHTAZMEM1727-60-45 08:47:00 Test Item Value Reference Range Interpretation Comments BUN (test code = BUN) 10 7-22 N [facility] CenterQpwsuwkIVRSJWONF7584-21-30 08:47:00 Test Item Value Reference Range Interpretation Comments Potassium Lvl (test code = Potassium 3.8 3.5-5.1 N Lvl) [facility] CenterSdqjbgbFSFPBSBEW6218-54-51 08:47:00 Test Item Value Reference Range Interpretation Comments Creatinine Lvl (test code = Creatinine 0.6 0.5-1.4 N Lvl) [facility] CenterYrbtqllRNRXNSYEV0942-13-28 08:47:00 Test Item Value Reference Range Interpretation Comments Calcium Lvl (test code = Calcium Lvl) 8.5 8.5-10.5 N [facility] CenterMpcbyveEPLTNCGDF2980-21-78 08:47:00 Test Item Value Reference Range Interpretation Comments AGAP (test code = AGAP) 14.8 10.0-20.0 N [facility] CenterOlwzvneBABCZRZEFW5833-65-72 08:47:00 Test Item Value Reference Range Interpretation Comments MCH (test code = MCH) 28.9 pg 27.0-31.0 N [facility] CenterVkgmqapWAQOFQCHVJ9372-88-29 08:47:00 Test Item Value Reference Range Interpretation Comments MCV (test code = MCV) 82.1 81.0-99.0 N [facility] CenterXddjygmVOQTGCJJOB1429-16-24 08:47:00 Test Item Value Reference Range Interpretation Comments Hct (test code = Hct) 25.9 36.0-48.0 L [facility] CenterZkccdylGWCIOFVNTF7290-81-03 08:47:00 Test Item Value Reference Range Interpretation Comments Platelet (test code = Platelet) 233 133-450 N [facility] CenterKdwjtcjVCDIXOJOLT9856-72-50 08:47:00 Test Item Value Reference Range Interpretation Comments RDW (test code = RDW) 14.5 11.5-14.5 N [facility] CenterSytcpzaRUFQUPIPFV9274-24-67 08:47:00 Test Item Value Reference Range Interpretation Comments MCHC (test code = MCHC) 35.2 32.0-36.0 N [facility] CenterTzmueggFVWPKMOLSY2681-35-10 08:47:00 Test Item Value Reference Range Interpretation Comments Hgb (test code = Hgb) 9.1 12.0-16.0 L [facility] CenterHfykqbfOJVFBIUEOM9352-78-06 08:47:00 Test Item Value Reference Range Interpretation Comments RBC (test code = RBC) 3.15 4.20-5.40 L [facility] CenterJnkovrjDENWKSGYUN5817-71-82 08:47:00 Test Item Value Reference Range Interpretation Comments MPV (test code = MPV) 9.0 7.4-10.4 N [facility] CenterKpbavldVNPKRNDGIF2438-50-69 08:47:00 Test Item Value Reference Range Interpretation Comments WBC (test code = WBC) 6.3 3.7-10.4 N [facility] CenterVgviqrcJXLACBSDLM8236-14-08 08:47:00 Test Item Value Reference Range Interpretation Comments Eosinophils # (test code 0.0 See_Comment N [A utomated message] The = Eosinophils #) system whic h generated this result tra nsmitted reference range : <=0.5. The reference r leo was not used to int erpret this result as normal/abnormal . [facility] CenterDrmhkmiUOWAQIIHZG8554-38-11 08:47:00 Test Item Value Reference Range Interpretation Comments Basophils # (test code 0.0 See_Comment N [Aut omated message] The = Basophils #) system which generated this result tra nsmitted reference range : <=0.2. The reference r leo was not used to int erpret this result as normal/abnormal . [facility] CenterIuhslesQRXENELXMF9268-82-84 08:47:00 Test Item Value Reference Range Interpretation Comments Segs-Bands # (test code = Segs-Bands #) 3.8 1.5-8.1 N [facility] CenterErnshbkBLXKGIUMCZ8230-63-99 08:47:00 Test Item Value Reference Range Interpretation Comments Lymphocytes # (test code = Lymphocytes 2.0 1.0-5.5 N #) [facility] CenterFtxcpsbFWUFQSMKZK3653-49-76 08:47:00 Test Item Value Reference Range Interpretation Comments Basophils (test code = 0.5 See_Comment N [Aut omated message] The Basophils) system which ge nerated this result tra nsmitted reference range : <=1.0. The reference r leo was not used to int erpret this result as normal/abnormal . [facility] CenterHmiorvhLPRYLFBSTA5714-70-41 08:47:00 Test Item Value Reference Range Interpretation Comments Eosinophils (test code = 0.7 See_Comment N [A utomated message] The Eosinophils) system which ge nerated this result tra nsmitted reference range : <=4.0. The reference r leo was not used to int erpret this result as normal/abnormal . [facility] CenterYaopsdrSHJYYZUXQR7607-90-45 08:47:00 Test Item Value Reference Range Interpretation Comments Monocytes (test code = Monocytes) 6.2 2.0-12.0 N [facility] CenterWeyagksOBZDJLUWSI5177-26-79 08:47:00 Test Item Value Reference Range Interpretation Comments Segs (test code = Segs) 61.1 45.0-75.0 N [facility] CenterFkmfnudVUNOEDUNXU2328-75-69 08:47:00 Test Item Value Reference Range Interpretation Comments Lymphocytes (test code = Lymphocytes) 31.5 20.0-40.0 N [facility] CenterIwdugnwMRNRGMMTNA4144-90-33 08:47:00 Test Item Value Reference Range Interpretation Comments Monocytes # (test code 0.4 See_Comment N [Aut omated message] The = Monocytes #) system which generated this result tra nsmitted reference range : <=0.8. The reference r leo was not used to int erpret this result as normal/abnormal . [facility] CenterSnyvgpvJKKOGEJHY1976-83-23 10:54:00 Test Item Value Reference Range Interpretation Comments CO2 (test code = CO2) 27 24-32 N [facility] CenterUixolmrFYMOBEULK2612-90-80 10:54:00 Test Item Value Reference Range Interpretation Comments Chloride Lvl (test code = Chloride Lvl) 104 95-109 N [facility] CenterIgyuajbLFQZANTQF6582-25-08 10:54:00 Test Item Value Reference Range Interpretation Comments Creatinine Lvl (test code = Creatinine 0.5 0.5-1.4 N Lvl) [facility] CenterPzvqhhnDSWURBUMD0658-34-04 10:54:00 Test Item Value Reference Range Interpretation Comments BUN (test code = BUN) 10 7-22 N [facility] CenterTnpqhggQBHJDDANH9497-67-34 10:54:00 Test Item Value Reference Range Interpretation Comments Potassium Lvl (test code = Potassium 4.1 3.5-5.1 N Lvl) [facility] CenterBkcwscxXBKZLIRHN4386-20-98 10:54:00 Test Item Value Reference Range Interpretation Comments Sodium Lvl (test code = Sodium Lvl) 141 135-145 N [facility] CenterSafwrpxBFOYDLFWZ5384-38-37 10:54:00 Test Item Value Reference Range Interpretation Comments Glucose Lvl (test code = Glucose Lvl) 83 [facility] CenterQowvcdqLOKQQLVKO6610-61-88 10:54:00 Test Item Value Reference Range Interpretation Comments Calcium Lvl (test code = Calcium Lvl) 8.4 8.5-10.5 L [facility] CenterVwuaeqjQWKFAGRAX0967-20-87 10:54:00 Test Item Value Reference Range Interpretation Comments AGAP (test code = AGAP) 14.1 10.0-20.0 N [facility] CenterJxckvouFALBRCEJUU1349-16-63 10:54:00 Test Item Value Reference Range Interpretation Comments Hct (test code = Hct) 35.5 36.0-48.0 L [facility] CenterLpguwrrVXBQAVMWAQ2491-26-32 10:54:00 Test Item Value Reference Range Interpretation Comments WBC (test code = WBC) 4.7 3.7-10.4 N [facility] CenterWtgftxgRMZMHXDRQN1369-30-70 10:54:00 Test Item Value Reference Range Interpretation Comments MCV (test code = MCV) 92.6 81.0-99.0 N [facility] CenterXulflcyCROCGSAQKS3509-86-45 10:54:00 Test Item Value Reference Range Interpretation Comments MCH (test code = MCH) 31.4 pg 27.0-31.0 H [facility] CenterUtwiegsTTOKDPVKVB3891-86-04 10:54:00 Test Item Value Reference Range Interpretation Comments RBC (test code = RBC) 3.84 4.20-5.40 L [facility] CenterJqdtlzySCZCJPISLY5333-85-33 10:54:00 Test Item Value Reference Range Interpretation Comments Hgb (test code = Hgb) 12.1 12.0-16.0 N [facility] CenterYggamdrBBCXUWRSJY8648-77-01 10:54:00 Test Item Value Reference Range Interpretation Comments Platelet (test code = Platelet) 287 133-450 N [facility] CenterPfvzswnSOYEGVJRHB9488-81-59 10:54:00 Test Item Value Reference Range Interpretation Comments RDW (test code = RDW) 12.7 11.5-14.5 N [facility] CenterMxzowppXJTREJATDI6868-56-51 10:54:00 Test Item Value Reference Range Interpretation Comments MCHC (test code = MCHC) 33.9 32.0-36.0 N [facility] CenterLndszmnMQEANQFCNZ0135-97-91 10:54:00 Test Item Value Reference Range Interpretation Comments MPV (test code = MPV) 7.2 7.4-10.4 L [facility] CenterDgwrcpeJWTZSNQIKH1697-61-62 10:54:00 Test Item Value Reference Range Interpretation Comments INR (test code = INR) 0.95 0.85-1.17 N [facility] CenterVqkclzjZWACGVPBPB2401-15-50 10:54:00 Test Item Value Reference Range Interpretation Comments PT (test code = PT) 12.7 s 12.0-14.7 N [facility] CenterDngqsnoLSXGHAVFWX2682-55-96 10:54:00 Test Item Value Reference Range Interpretation Comments PTT (test code = PTT) 28.5 s 22.9-35.8 N [facility] CenterIoibjkaPKBGWBJKOL9655-66-90 10:54:00 Test Item Value Reference Range Interpretation Comments Eosinophils # (test code 0.1 See_Comment N [A utomated message] The = Eosinophils #) system whic h generated this result tra nsmitted reference range : <=0.5. The reference r leo was not used to int erpret this result as normal/abnormal . [facility] CenterBnvrcpnFOVCJZISTS6610-15-77 10:54:00 Test Item Value Reference Range Interpretation Comments Basophils # (test code 0.0 See_Comment N [Aut omated message] The = Basophils #) system which generated this result tra nsmitted reference range : <=0.2. The reference r leo was not used to int erpret this result as normal/abnormal . [facility] CenterFzowsseSBOVTHXPSW3550-05-96 10:54:00 Test Item Value Reference Range Interpretation Comments Basophils (test code = 0.4 See_Comment N [Aut omated message] The Basophils) system which ge nerated this result tra nsmitted reference range : <=1.0. The reference r leo was not used to int erpret this result as normal/abnormal . [facility] CenterJlequihZUPCNISEXO1285-93-48 10:54:00 Test Item Value Reference Range Interpretation Comments Segs-Bands # (test code = Segs-Bands #) 2.1 1.5-8.1 N [facility] CenterSxxdkarRFMJXSJSQE5470-90-70 10:54:00 Test Item Value Reference Range Interpretation Comments Monocytes (test code = Monocytes) 9.0 2.0-12.0 N [facility] CenterVjogoqbIVSGGWPSMZ4780-96-39 10:54:00 Test Item Value Reference Range Interpretation Comments Eosinophils (test code = 2.4 See_Comment N [A utomated message] The Eosinophils) system which ge nerated this result tra nsmitted reference range : <=4.0. The reference r leo was not used to int erpret this result as normal/abnormal . [facility] CenterFkdmxcpUFVQLBUIXL3406-13-42 10:54:00 Test Item Value Reference Range Interpretation Comments Monocytes # (test code 0.4 See_Comment N [Aut omated message] The = Monocytes #) system which generated this result tra nsmitted reference range : <=0.8. The reference r leo was not used to int erpret this result as normal/abnormal . [facility] CenterZaklpauXMWSAHJVVL0651-33-53 10:54:00 Test Item Value Reference Range Interpretation Comments Lymphocytes # (test code = Lymphocytes 2.0 1.0-5.5 N #) [facility] CenterCwcjjpzKFWASJUJMP0249-42-22 10:54:00 Test Item Value Reference Range Interpretation Comments Lymphocytes (test code = Lymphocytes) 42.8 20.0-40.0 H [facility] CenterCkaqgutFTWEEQBBTH4783-83-13 10:54:00 Test Item Value Reference Range Interpretation Comments Segs (test code = Segs) 45.4 45.0-75.0 N [facility] CenterTwvsiypQZPKKODAY8771-22-14 10:02:00 Test Item Value Reference Range Interpretation Comments Chloride Lvl (test code = Chloride Lvl) 105 95-109 N [facility] CenterXeajlchVQXTQKPSH3310-54-07 10:02:00 Test Item Value Reference Range Interpretation Comments Potassium Lvl (test code = Potassium 4.1 3.5-5.1 N Lvl) [facility] CenterKdfetuiXLDZLPTMC1467-88-58 10:02:00 Test Item Value Reference Range Interpretation Comments Sodium Lvl (test code = Sodium Lvl) 143 135-145 N [facility] CenterHjftsqaBYSUHSRZI3809-62-06 10:02:00 Test Item Value Reference Range Interpretation Comments CO2 (test code = CO2) 29 24-32 N [facility] CenterMfzeozuJGHCVTGJX3733-79-13 10:02:00 Test Item Value Reference Range Interpretation Comments Calcium Lvl (test code = Calcium Lvl) 8.7 8.5-10.5 N [facility] CenterNytcrgqWERZWVBRR1766-43-17 10:02:00 Test Item Value Reference Range Interpretation Comments BUN (test code = BUN) 6 7-22 L [facility] CenterFtxmrnbFQJWHXZRE6531-30-58 10:02:00 Test Item Value Reference Range Interpretation Comments Creatinine Lvl (test code = Creatinine 0.6 0.5-1.4 N Lvl) [facility] CenterGddbbcwQTAGXIGMC0345-46-74 10:02:00 Test Item Value Reference Range Interpretation Comments Glucose Lvl (test code = Glucose Lvl) 118 [facility] CenterTejraryVSNABGBTV2589-48-82 10:02:00 Test Item Value Reference Range Interpretation Comments AGAP (test code = AGAP) 13.1 10.0-20.0 N [facility] CenterXwkmljaQPFLIMNHXL6979-82-27 10:02:00 Test Item Value Reference Range Interpretation Comments Basophils # (test code 0.0 See_Comment N [Aut omated message] The = Basophils #) system which generated this result tra nsmitted reference range : <=0.2. The reference r leo was not used to int erpret this result as normal/abnormal . [facility] CenterPriyjtyXBQUPUEOQV9691-08-07 10:02:00 Test Item Value Reference Range Interpretation Comments Monocytes # (test code 0.3 See_Comment N [Aut omated message] The = Monocytes #) system which generated this result tra nsmitted reference range : <=0.8. The reference r leo was not used to int erpret this result as normal/abnormal . [facility] CenterRnzdkwzOHKBIAFTHB8826-59-77 10:02:00 Test Item Value Reference Range Interpretation Comments Eosinophils # (test code 0.1 See_Comment N [A utomated message] The = Eosinophils #) system whic h generated this result tra nsmitted reference range : <=0.5. The reference r leo was not used to int erpret this result as normal/abnormal . [facility] CenterDdhcsrnXWLLTIVGMG1011-70-93 10:02:00 Test Item Value Reference Range Interpretation Comments Segs-Bands # (test code = Segs-Bands #) 2.8 1.5-8.1 N [facility] CenterZoydryqNXCQSSYOHI8220-86-71 10:02:00 Test Item Value Reference Range Interpretation Comments Lymphocytes # (test code = Lymphocytes 1.7 1.0-5.5 N #) [facility] CenterMtjpcfqPGRGVHLBJX0323-24-87 10:02:00 Test Item Value Reference Range Interpretation Comments Basophils (test code = 0.6 See_Comment N [Aut omated message] The Basophils) system which ge nerated this result tra nsmitted reference range : <=1.0. The reference r leo was not used to int erpret this result as normal/abnormal . [facility] CenterZprwatfTKOSLHCHFC3666-47-58 10:02:00 Test Item Value Reference Range Interpretation Comments Monocytes (test code = Monocytes) 6.9 2.0-12.0 N [facility] CenterRmfwknzCBIHURECNE2727-76-41 10:02:00 Test Item Value Reference Range Interpretation Comments Eosinophils (test code = 2.0 See_Comment N [A utomated message] The Eosinophils) system which ge nerated this result tra nsmitted reference range : <=4.0. The reference r leo was not used to int erpret this result as normal/abnormal . [facility] CenterPzlrhtiUWHVMPMCDQ3682-48-08 10:02:00 Test Item Value Reference Range Interpretation Comments Segs (test code = Segs) 55.8 45.0-75.0 N [facility] CenterPnkgtmtFHSJSNFQYE9431-23-21 10:02:00 Test Item Value Reference Range Interpretation Comments Lymphocytes (test code = Lymphocytes) 34.7 20.0-40.0 N [facility] CenterPnmckrtBHWZROQSRY8107-73-75 10:02:00 Test Item Value Reference Range Interpretation Comments PTT (test code = PTT) 32.2 s 22.9-35.8 N [facility] CenterKuzzjpvTNTVBVABRR8383-95-40 10:02:00 Test Item Value Reference Range Interpretation Comments PT (test code = PT) 13.3 s 12.0-14.7 N [facility] CenterAwpstvnWYSSUWOUND9021-62-88 10:02:00 Test Item Value Reference Range Interpretation Comments INR (test code = INR) 1.01 0.85-1.17 N [facility] CenterWhhcewyXXLFUDUPGK5190-31-98 10:02:00 Test Item Value Reference Range Interpretation Comments Hct (test code = Hct) 27.5 36.0-48.0 L [facility] CenterZrrewnkKSZCBGUCRX6126-15-82 10:02:00 Test Item Value Reference Range Interpretation Comments RBC (test code = RBC) 3.34 4.20-5.40 L [facility] CenterCvnckcxBGIMYBHOZF0170-46-24 10:02:00 Test Item Value Reference Range Interpretation Comments Hgb (test code = Hgb) 9.7 12.0-16.0 L [facility] CenterVfmorswAREPRUKVOO6654-20-12 10:02:00 Test Item Value Reference Range Interpretation Comments WBC (test code = WBC) 5.0 3.7-10.4 N [facility] CenterXasduhhNZVYIPWYIG7681-02-83 10:02:00 Test Item Value Reference Range Interpretation Comments MPV (test code = MPV) 9.2 7.4-10.4 N [facility] CenterDzpykyfOACIKYWWXG8050-89-10 10:02:00 Test Item Value Reference Range Interpretation Comments Platelet (test code = Platelet) 240 133-450 N [facility] CenterDmznxbfOLUGBRFGDM5158-73-45 10:02:00 Test Item Value Reference Range Interpretation Comments RDW (test code = RDW) 14.3 11.5-14.5 N [facility] CenterUtoxcbgANNNKAQJAL7537-12-29 10:02:00 Test Item Value Reference Range Interpretation Comments MCHC (test code = MCHC) 35.2 32.0-36.0 N [facility] CenterKdzcblqKSDAIHGVJO6693-14-30 10:02:00 Test Item Value Reference Range Interpretation Comments MCH (test code = MCH) 28.9 pg 27.0-31.0 N [facility] CenterVcbrzapSRRWRRMNFG7711-36-47 10:02:00 Test Item Value Reference Range Interpretation Comments MCV (test code = MCV) 82.1 81.0-99.0 N [facility]DkglentXFSCYRYZQ1936-47-15 09:24:00 Test Item Value Reference Range Interpretation Comments Magnesium Lvl (test code = Magnesium 2.1 1.8-2.4 N Lvl) [facility]aCzgzuovHawynhfgfaho4843-52-05 00:32:00 Test Item Value Reference Range Interpretation Comments Culture: Aspirate/Body Fluid/Tissue (test code = Culture: Aspirate/Body Fluid/Tissue) [facility]sk8056[facility] 00:32:00 Test Item Value Reference Range Interpretation Comments Culture: Anaerobic (test code = Culture: Anaerobic) [facility] CenterSfmahkzXCPLSVFZW2115-41-31 17:10:00 Test Item Value Reference Range Interpretation Comments Temp Roberth (test code = Temp Roberth) 37.0 [facility] CenterChsudiaQHPLNGRPP1633-92-35 17:10:00 Test Item Value Reference Range Interpretation Comments O2 Sat Roberth (test code = O2 Sat Roberth) 27.0 40.0-70.0 L [facility] CenterYtxuvblHFNCWEHGH6868-66-45 17:10:00 Test Item Value Reference Range Interpretation Comments pCO2 Roberth (test code = pCO2 Roberth) 47 38-52 N [facility] CenterDvihrqrDENZEBKNO0721-67-96 17:10:00 Test Item Value Reference Range Interpretation Comments pH Roberth (test code = pH Roberth) 7.37 7.28-7.42 N [facility] CenterCppivrqQLVKKHQLX4181-02-21 17:10:00 Test Item Value Reference Range Interpretation Comments BE Roberth (test code = 1 See_Comment N [Automa rohit message] The BE Roberth) system which ge nerated this result transmit rohit reference range : <=2. The reference range was not used to interpr et this result as reji l/abnormal. [facility] CenterOaogoduLMJDIBNFL8947-76-98 17:10:00 Test Item Value Reference Range Interpretation Comments HCO3 Roberth (test code = HCO3 Roberth) 27.2 22.0-26.0 H [facility] CenterYjfhupmKUPDEJKHL9015-92-06 17:10:00 Test Item Value Reference Range Interpretation Comments pO2 Roberth (test code = pO2 Roberth) 19 20-49 L [facility]JynymjfWgqkeizjkpuu5709-45-54 14:18:00 Test Item Value Reference Range Interpretation Comments Culture: Blood (test code = Culture: Blood) [facility]CodzolkLxalvelnqstd0802-71-73 14:18:00 Test Item Value Reference Range Interpretation Comments Culture: Wound/Abscess w/Gram Stain (test code = Culture: Wound/Abscess w/Gram Stain) [facility] CenterTedqlkpQAXTSMLVU9322-65-17 13:09:00 Test Item Value Reference Range Interpretation Comments Lactic Acid Lvl (test code = Lactic 1.0 0.5-2.2 N Acid Lvl) [facility] CenterGmkzgxjYCGWGBILP1317-50-46 12:20:00 Test Item Value Reference Range Interpretation Comments U Preg (test code = U Negative (09/01/2011 N Preg) 07:20:00) [facility]OvkkgokEZBPWRMGMK5807-60-91 12:20:00 Test Item Value Reference Range Interpretation Comments UA Sq Epi (test code Occasional /LPF N = UA Sq Epi) (09/01/2011 07:20:00) [facility]aMixqqvcCLQPFQNIJS9093-56-33 12:20:00 Test Item Value Reference Range Interpretation Comments UA Leuk Est (test Negative (09/01/2011 N code = UA Leuk Est) 07:20:00) [facility]CffcbnjINLHHMOQRV6016-81-07 12:20:00 Test Item Value Reference Range Interpretation Comments UA Nitrite (test code Negative (09/01/2011 N = UA Nitrite) 07:20:00) [facility]IclqcbnPKPKQMHOMJ6514-02-19 12:20:00 Test Item Value Reference Range Interpretation Comments UA Urobilinogen (test code = UA 0.2 0.1-1.0 N Urobilinogen) [facility]aMcxlexmTODZMZJXUG9627-52-48 12:20:00 Test Item Value Reference Range Interpretation Comments UA Blood (test code = Negative (09/01/2011 N UA Blood) 07:20:00) [facility]YmybcbtGRVBNPJJSP2904-65-27 12:20:00 Test Item Value Reference Range Interpretation Comments UA Ketones (test code = >=80 mg/dL A UA Ketones) *ABN*(09/01/2011 07:20:00) [facility]aMwpfyzbFVDPHIQDYJ7689-86-10 12:20:00 Test Item Value Reference Range Interpretation Comments UA Protein (test code Negative (09/01/2011 N = UA Protein) 07:20:00) [facility]aDummwouMXGJBYOCXF5517-62-20 12:20:00 Test Item Value Reference Range Interpretation Comments UA pH (test code = UA pH) 6.0 1 5.0-8.0 N [facility]aZxgyqxjPQWHKRPFPE7904-83-32 12:20:00 Test Item Value Reference Range Interpretation Comments UA Bili (test code = Negative (09/01/2011 N UA Bili) 07:20:00) [facility]aDfwfqklSYWWWUWEAN6640-24-28 12:20:00 Test Item Value Reference Range Interpretation Comments UA Glucose (test code = >=1000 mg/dL A UA Glucose) *ABN*(09/01/2011 07:20:00) [facility]PvqnafsRETQGJPSDJ2365-33-97 12:20:00 Test Item Value Reference Range Interpretation Comments UA Spec Grav (test code = UA Spec 1.035 1 H Grav) [facility] CenterNwnaojvKHRJXZLBSH0405-22-83 12:20:00 Test Item Value Reference Range Interpretation Comments UA Turbidity (test code = Clear (09/01/2011 N UA Turbidity) 07:20:00) [facility] CenterCrqrvslZXHTOYFKPP4743-45-77 12:20:00 Test Item Value Reference Range Interpretation Comments UA Color (test code = Yellow *NA*(09/01/2011 UA Color) 07:20:00) [facility] CenterLnrfpjuVRBJDVQNV9638-20-81 08:00:00 Test Item Value Reference Range Interpretation Comments Lactic Acid Lvl (test code = Lactic 2.8 0.5-2.2 H Acid Lvl) [facility] CenterCetmdckQSTNFZJOS6589-07-72 07:47:00 Test Item Value Reference Range Interpretation Comments Magnesium Lvl (test code = Magnesium 1.5 1.8-2.4 L Lvl) [facility] CenterDtrebcyGOBAFQNPCO7797-06-45 07:47:00 Test Item Value Reference Range Interpretation Comments Polychrom (test code = Slight (09/01/2011 N Polychrom) 02:47:00) [facility] CenterZidpcyoRYTBJOKATH0137-36-15 07:47:00 Test Item Value Reference Range Interpretation Comments Anisocyte (test code = 1+ *ABN*(09/01/2011 A Anisocyte) 02:47:00) [facility] CenterBzjybvfINMXGCFGVM4072-89-40 07:47:00 Test Item Value Reference Range Interpretation Comments Large Plt (test code = Slight *ABN*(09/01/2011 A Large Plt) 02:47:00) [facility] CenterJknmsosCXJBHNNURQ9139-02-26 07:47:00 Test Item Value Reference Range Interpretation Comments Tear Cell (test code = Tear Cell) Occasional [facility] CenterOppfonaMLLPYOHMBA5395-66-24 07:47:00 Test Item Value Reference Range Interpretation Comments Elliptocyte (test code = Slight A Elliptocyte) *ABN*(09/01/2011 02:47:00) [facility] GLUCOSE NSWXNIA0751-38-22 17:02:00 Test Item Value Reference Range Interpretation Comments Comment1 (test code = Comment1) Notify RN/ [facility] GLUCOSE GNZGBYZ4917-17-48 17:02:00 Test Item Value Reference Range Interpretation Comments Gluc POC Lifscn (test code = Gluc POC 134 65-110 H Lifscn) [facility] GLUCOSE IYBBUVL4179-59-50 13:45:00 Test Item Value Reference Range Interpretation Comments Gluc POC Lifscn (test code = Gluc POC 182 65-110 H Lifscn) [facility] GLUCOSE KNMNHXV1030-56-48 13:45:00 Test Item Value Reference Range Interpretation Comments Comment1 (test code = Comment1) Notify RN/ [facility] CenterEvnfevrGACXPCYEB0798-89-11 10:22:00 Test Item Value Reference Range Interpretation Comments Phosphorus (test code = Phosphorus) 3.0 2.5-4.5 N [facility] CenterRetnwqsPUCPVZVKL6441-59-47 10:22:00 Test Item Value Reference Range Interpretation Comments Magnesium Lvl (test code = Magnesium 1.8 1.8-2.4 N Lvl) [facility] CenterVofvhzuCYTWQXBDI6111-70-62 10:22:00 Test Item Value Reference Range Interpretation Comments Chloride Lvl (test code = Chloride Lvl) 107 95-109 N [facility] CenterUredsvhVPYUELOFD8885-36-80 10:22:00 Test Item Value Reference Range Interpretation Comments Potassium Lvl (test code = Potassium 3.0 3.5-5.1 A Lvl) [facility] CenterByskflhOMZVKJNGA4894-43-85 10:22:00 Test Item Value Reference Range Interpretation Comments Sodium Lvl (test code = Sodium Lvl) 141 135-145 N [facility] CenterVjhuofoJCHLMUQPA6645-82-78 10:22:00 Test Item Value Reference Range Interpretation Comments Creatinine Lvl (test code = Creatinine 0.6 0.5-1.4 N Lvl) [facility] CenterNbpsfwmGHIMUPKDK9773-94-51 10:22:00 Test Item Value Reference Range Interpretation Comments CO2 (test code = CO2) 23 24-32 L [facility] CenterSfuqhdsVEOXHGQTU4233-64-56 10:22:00 Test Item Value Reference Range Interpretation Comments Calcium Lvl (test code = Calcium Lvl) 7.3 8.5-10.5 L [facility] CenterHwhurcsASCBNSWGT2555-90-46 10:22:00 Test Item Value Reference Range Interpretation Comments Glucose Lvl (test code = Glucose Lvl) 136 [facility] CenterMowbyfnOSGXRFUCG7258-62-66 10:22:00 Test Item Value Reference Range Interpretation Comments AGAP (test code = AGAP) 14.0 10.0-20.0 N [facility] CenterDljpiasLSXSYFEDN5110-83-62 10:22:00 Test Item Value Reference Range Interpretation Comments BUN (test code = BUN) 5 7-22 L [facility] CenterZbpqltwRLCODNTCDU5214-55-15 10:22:00 Test Item Value Reference Range Interpretation Comments Segs (test code = Segs) 69.6 45.0-75.0 N [facility] CenterRzftcpnJJKWBHIMBI1628-62-99 10:22:00 Test Item Value Reference Range Interpretation Comments Lymphocytes (test code = Lymphocytes) 21.5 20.0-40.0 N [facility] CenterUslfremWWNQZFBDQL8941-42-94 10:22:00 Test Item Value Reference Range Interpretation Comments Monocytes (test code = Monocytes) 7.6 2.0-12.0 N [facility] CenterYscherkGVXBZQHJSW9270-20-03 10:22:00 Test Item Value Reference Range Interpretation Comments Eosinophils (test code = 1.0 See_Comment N [A utomated message] The Eosinophils) system which ge nerated this result tra nsmitted reference range : <=4.0. The reference r leo was not used to int erpret this result as normal/abnormal . [facility] CenterIpvjgfrRNAZHIIKSC3328-66-92 10:22:00 Test Item Value Reference Range Interpretation Comments Basophils (test code = 0.3 See_Comment N [Aut omated message] The Basophils) system which ge nerated this result tra nsmitted reference range : <=1.0. The reference r leo was not used to int erpret this result as normal/abnormal . [facility] CenterExyaqitXYKPHHRWZS9597-40-09 10:22:00 Test Item Value Reference Range Interpretation Comments Segs-Bands # (test code = Segs-Bands #) 4.8 1.5-8.1 N [facility] CenterGaelpsmRWOMCXYFKD6738-15-04 10:22:00 Test Item Value Reference Range Interpretation Comments Eosinophils # (test code 0.1 See_Comment N [A utomated message] The = Eosinophils #) system whic h generated this result tra nsmitted reference range : <=0.5. The reference r leo was not used to int erpret this result as normal/abnormal . [facility] CenterCioabtuVNVIOIAJZQ5406-05-06 10:22:00 Test Item Value Reference Range Interpretation Comments Lymphocytes # (test code = Lymphocytes 1.5 1.0-5.5 N #) [facility] CenterVgdcnvtLGLMAZIYQH0137-99-05 10:22:00 Test Item Value Reference Range Interpretation Comments Monocytes # (test code 0.5 See_Comment N [Aut omated message] The = Monocytes #) system which generated this result tra nsmitted reference range : <=0.8. The reference r leo was not used to int erpret this result as normal/abnormal . [facility] CenterBsrjnxiJUKSZMHENU2256-89-45 10:22:00 Test Item Value Reference Range Interpretation Comments Basophils # (test code 0.0 See_Comment N [Aut omated message] The = Basophils #) system which generated this result tra nsmitted reference range : <=0.2. The reference r leo was not used to int erpret this result as normal/abnormal . [facility] CenterGdlekkyYIYOLASEPA5877-11-83 10:22:00 Test Item Value Reference Range Interpretation Comments MPV (test code = MPV) 11.0 7.4-10.4 H [facility] CenterSjdhwzrBQNUWAQHGY9168-02-31 10:22:00 Test Item Value Reference Range Interpretation Comments Platelet (test code = Platelet) 161 133-450 N [facility] CenterLhkrcptYUJFDDZQPZ3754-39-31 10:22:00 Test Item Value Reference Range Interpretation Comments MCH (test code = MCH) 29.6 pg 27.0-31.0 N [facility] CenterYplpeapWEZMLBRMCN1062-73-22 10:22:00 Test Item Value Reference Range Interpretation Comments MCHC (test code = MCHC) 35.4 32.0-36.0 N [facility] CenterKutoduvFTNRBZSZMD1974-37-75 10:22:00 Test Item Value Reference Range Interpretation Comments RDW (test code = RDW) 14.1 11.5-14.5 N [facility] CenterRfddrssBFTDKXYXIB7688-54-68 10:22:00 Test Item Value Reference Range Interpretation Comments WBC (test code = WBC) 6.8 3.7-10.4 N [facility] CenterBizjkjuTNHXDYEXZS4611-04-67 10:22:00 Test Item Value Reference Range Interpretation Comments MCV (test code = MCV) 83.5 81.0-99.0 N [facility] CenterXirixotVHZMUXUGTL8390-48-02 10:22:00 Test Item Value Reference Range Interpretation Comments RBC (test code = RBC) 4.44 4.20-5.40 N [facility] CenterEuxgcgfLZZZHPSTTH9035-79-20 10:22:00 Test Item Value Reference Range Interpretation Comments Hgb (test code = Hgb) 13.1 12.0-16.0 N [facility] CenterBteiwbjNJLSWRVJJU3926-76-82 10:22:00 Test Item Value Reference Range Interpretation Comments Hct (test code = Hct) 37.1 36.0-48.0 N [facility] GLUCOSE BNIKTML8445-35-36 02:20:00 Test Item Value Reference Range Interpretation Comments Comment1 (test code = Comment1) Notify RN/MD [facility] GLUCOSE RKESUBB5624-40-92 02:20:00 Test Item Value Reference Range Interpretation Comments Gluc POC Lifscn (test code = Gluc POC 332 65-110 H Lifscn) [facility] CenterVdfcemcSWMNUBXWI8945-55-90 09:47:00 Test Item Value Reference Range Interpretation Comments Phosphorus (test code = Phosphorus) 2.5 2.5-4.5 N [facility] CenterYcrxutjGRFKZEUSZ9689-90-28 09:47:00 Test Item Value Reference Range Interpretation Comments Glucose Lvl (test code = Glucose Lvl) 201 [facility] CenterNmdsqorHLSMEYEEF4160-98-89 09:47:00 Test Item Value Reference Range Interpretation Comments BUN (test code = BUN) 7 7-22 N [facility] CenterUrcrevuYITMNFDOY0245-09-02 09:47:00 Test Item Value Reference Range Interpretation Comments CO2 (test code = CO2) 19 24-32 L [facility] CenterLcxbeacEHKHYJPKZ5599-85-22 09:47:00 Test Item Value Reference Range Interpretation Comments Creatinine Lvl (test code = Creatinine 0.3 0.5-1.4 L Lvl) [facility] CenterZfhyjeuOUEVINIJT0924-87-81 09:47:00 Test Item Value Reference Range Interpretation Comments Sodium Lvl (test code = Sodium Lvl) 137 135-145 N [facility] CenterLjaljysWAFXMXEZW0196-34-81 09:47:00 Test Item Value Reference Range Interpretation Comments Chloride Lvl (test code = Chloride Lvl) 103 95-109 N [facility] CenterEgloozgFOKNHGAMI3382-51-84 09:47:00 Test Item Value Reference Range Interpretation Comments Potassium Lvl (test code = Potassium 3.6 3.5-5.1 N Lvl) [facility] CenterCasznitSXXHRPXQN4327-84-81 09:47:00 Test Item Value Reference Range Interpretation Comments Calcium Lvl (test code = Calcium Lvl) 7.9 8.5-10.5 L [facility] CenterIfghkkjZGCYYVUZY2259-58-27 09:47:00 Test Item Value Reference Range Interpretation Comments AGAP (test code = AGAP) 18.6 10.0-20.0 N [facility] CenterLjkdkyrGIWIUIQNV4647-22-55 09:47:00 Test Item Value Reference Range Interpretation Comments Magnesium Lvl (test code = Magnesium 1.6 1.8-2.4 L Lvl) [facility] CenterOciubyhYKROGAWCGT9445-19-33 09:47:00 Test Item Value Reference Range Interpretation Comments Basophils # (test code 0.0 See_Comment N [Aut omated message] The = Basophils #) system which generated this result tra nsmitted reference range : <=0.2. The reference r leo was not used to int erpret this result as normal/abnormal . [facility] CenterPfqmwuyVWLKTGLPGO2487-22-84 09:47:00 Test Item Value Reference Range Interpretation Comments Eosinophils (test code = 0.4 See_Comment N [A utomated message] The Eosinophils) system which ge nerated this result tra nsmitted reference range : <=4.0. The reference r leo was not used to int erpret this result as normal/abnormal . [facility] CenterMccifbjFUJJKNSWKH6745-08-26 09:47:00 Test Item Value Reference Range Interpretation Comments Basophils (test code = 0.5 See_Comment N [Aut omated message] The Basophils) system which ge nerated this result tra nsmitted reference range : <=1.0. The reference r leo was not used to int erpret this result as normal/abnormal . [facility] CenterUdmdgvyRQWDFXTDCV0725-32-02 09:47:00 Test Item Value Reference Range Interpretation Comments Segs-Bands # (test code = Segs-Bands #) 5.9 1.5-8.1 N [facility] CenterKqswbqzJGTYSMBFVN3959-39-97 09:47:00 Test Item Value Reference Range Interpretation Comments Lymphocytes # (test code = Lymphocytes 1.2 1.0-5.5 N #) [facility] CenterIlicbvzROJAUOXMLU4520-87-50 09:47:00 Test Item Value Reference Range Interpretation Comments Monocytes # (test code 0.5 See_Comment N [Aut omated message] The = Monocytes #) system which generated this result tra nsmitted reference range : <=0.8. The reference r leo was not used to int erpret this result as normal/abnormal . [facility] CenterGmchnxxXUITBRLTGS3454-53-91 09:47:00 Test Item Value Reference Range Interpretation Comments Eosinophils # (test code 0.0 See_Comment N [A utomated message] The = Eosinophils #) system whic h generated this result tra nsmitted reference range : <=0.5. The reference r leo was not used to int erpret this result as normal/abnormal . [facility] CenterOujglsxLERFAQHAME9410-36-30 09:47:00 Test Item Value Reference Range Interpretation Comments Segs (test code = Segs) 76.9 45.0-75.0 H [facility] CenterLdjgdziPKPJUTLQVV7885-12-45 09:47:00 Test Item Value Reference Range Interpretation Comments Lymphocytes (test code = Lymphocytes) 15.9 20.0-40.0 L [facility] CenterRxpvpilOCELMBJPXG6312-21-64 09:47:00 Test Item Value Reference Range Interpretation Comments Monocytes (test code = Monocytes) 6.3 2.0-12.0 N [facility] CenterUmhwmdjGFFMFHGHCV3175-13-44 09:47:00 Test Item Value Reference Range Interpretation Comments MCV (test code = MCV) 82.8 81.0-99.0 N [facility] CenterWnkkmqeMEVNVZYAPB0282-67-74 09:47:00 Test Item Value Reference Range Interpretation Comments Hct (test code = Hct) 39.7 36.0-48.0 N [facility] CenterWoxzblxXUOPSKKRTD2315-61-04 09:47:00 Test Item Value Reference Range Interpretation Comments MCH (test code = MCH) 29.1 pg 27.0-31.0 N [facility] CenterUwxoyxeYUHJMPIVBY3084-58-48 09:47:00 Test Item Value Reference Range Interpretation Comments Hgb (test code = Hgb) 14.0 12.0-16.0 N [facility] CenterMstsmbjKSPAGAHYSK0034-55-02 09:47:00 Test Item Value Reference Range Interpretation Comments MCHC (test code = MCHC) 35.2 32.0-36.0 N [facility] CenterRfyrvppXUGVPVUOTG0385-15-05 09:47:00 Test Item Value Reference Range Interpretation Comments RDW (test code = RDW) 13.9 11.5-14.5 N [facility] CenterOicjzfwOTSTGAXNOT6997-97-45 09:47:00 Test Item Value Reference Range Interpretation Comments Platelet (test code = Platelet) 160 133-450 N [facility] CenterEfqmdsiWQUCIVZCDQ9721-92-33 09:47:00 Test Item Value Reference Range Interpretation Comments MPV (test code = MPV) 11.9 7.4-10.4 H [facility] CenterTolgcdkKQDXGSJOIA2865-09-82 09:47:00 Test Item Value Reference Range Interpretation Comments WBC (test code = WBC) 7.7 3.7-10.4 N [facility] CenterPwqwvspJBNLMEQASG0696-86-07 09:47:00 Test Item Value Reference Range Interpretation Comments RBC (test code = RBC) 4.80 4.20-5.40 N [facility] CenterScwdlvqWNKBFKJTD8477-32-98 10:28:00 Test Item Value Reference Range Interpretation Comments Phosphorus (test code = Phosphorus) 2.6 2.5-4.5 N [facility] CenterCxebfhaSIHOKTPIN4807-80-13 10:28:00 Test Item Value Reference Range Interpretation Comments Magnesium Lvl (test code = Magnesium 1.8 1.8-2.4 N Lvl) [facility] CenterHiwtsbkJEULGPERC2735-07-45 10:28:00 Test Item Value Reference Range Interpretation Comments Potassium Lvl (test code = Potassium 3.7 3.5-5.1 N Lvl) [facility] CenterPyypmloAAWSRVRXR7427-65-85 10:28:00 Test Item Value Reference Range Interpretation Comments Sodium Lvl (test code = Sodium Lvl) 137 135-145 N [facility] CenterDhevpzqVHATZQUNJ3524-00-26 10:28:00 Test Item Value Reference Range Interpretation Comments Creatinine Lvl (test code = Creatinine 0.6 0.5-1.4 N Lvl) [facility] CenterHxtjsjcAPEKXFDGI1407-08-62 10:28:00 Test Item Value Reference Range Interpretation Comments BUN (test code = BUN) 16 7-22 N [facility] CenterUrzxrhoTRIHTWPKD4781-91-82 10:28:00 Test Item Value Reference Range Interpretation Comments Glucose Lvl (test code = Glucose Lvl) 200 [facility] CenterYgfylyaEUNHPOJEY1552-09-01 10:28:00 Test Item Value Reference Range Interpretation Comments Calcium Lvl (test code = Calcium Lvl) 8.3 8.5-10.5 L [facility] CenterYbdzsvsFMDZHJGFB0811-11-56 10:28:00 Test Item Value Reference Range Interpretation Comments AGAP (test code = AGAP) 19.7 10.0-20.0 N [facility] CenterFhsbywhISMLHADGJ6071-99-77 10:28:00 Test Item Value Reference Range Interpretation Comments Chloride Lvl (test code = Chloride Lvl) 99 95-109 N [facility] CenterBwjyfnjWWOTMHOFM6181-20-55 10:28:00 Test Item Value Reference Range Interpretation Comments CO2 (test code = CO2) 22 24-32 L [facility] CenterDdazsyeTPKVPLVCQG0803-04-52 10:28:00 Test Item Value Reference Range Interpretation Comments Platelet (test code = Platelet) 172 133-450 N [facility] CenterPoexofrOHWNRKAIOE7956-79-32 10:28:00 Test Item Value Reference Range Interpretation Comments MPV (test code = MPV) 12.0 7.4-10.4 H [facility] CenterEfbnxisTSICFRSAOW8753-97-26 10:28:00 Test Item Value Reference Range Interpretation Comments WBC (test code = WBC) 7.3 3.7-10.4 N [facility] CenterZpeksfmQMDZKUBUCS7962-78-67 10:28:00 Test Item Value Reference Range Interpretation Comments RDW (test code = RDW) 14.6 11.5-14.5 H [facility] CenterRvuowhnQSHQDFWZXT3207-40-55 10:28:00 Test Item Value Reference Range Interpretation Comments MCHC (test code = MCHC) 35.0 32.0-36.0 N [facility] CenterSuydhawDLQLUJXRLU4366-04-14 10:28:00 Test Item Value Reference Range Interpretation Comments RBC (test code = RBC) 4.54 4.20-5.40 N [facility] CenterIcbeygwPBRYDVNVYT7627-74-69 10:28:00 Test Item Value Reference Range Interpretation Comments Hct (test code = Hct) 37.6 36.0-48.0 N [facility] CenterPyhnbzaMWASIVNWIM5052-66-71 10:28:00 Test Item Value Reference Range Interpretation Comments MCV (test code = MCV) 82.9 81.0-99.0 N [facility] CenterUanjtrbXMGFAXOQOZ3319-01-55 10:28:00 Test Item Value Reference Range Interpretation Comments MCH (test code = MCH) 29.0 pg 27.0-31.0 N [facility] CenterBgznatxDLPLHPPJXP0494-67-44 10:28:00 Test Item Value Reference Range Interpretation Comments Hgb (test code = Hgb) 13.2 12.0-16.0 N [facility] CenterLqthnuvCMQXMFPNDC1085-43-40 10:28:00 Test Item Value Reference Range Interpretation Comments Elliptocyte (test code = Slight A Elliptocyte) *ABN*(08/21/2011 04:28:00) [facility] CenterQgynftwZMPQGAYYAB9692-26-56 10:28:00 Test Item Value Reference Range Interpretation Comments Polychrom (test code = Slight (08/21/2011 N Polychrom) 04:28:00) [facility] CenterGcizvoqACOAHLKVJW7613-61-19 10:28:00 Test Item Value Reference Range Interpretation Comments Basophils # (test code 0.0 See_Comment N [Aut omated message] The = Basophils #) system which generated this result tra nsmitted reference range : <=0.2. The reference r leo was not used to int erpret this result as normal/abnormal . [facility] CenterMpqqmzcTTLWALLVAX6894-64-95 10:28:00 Test Item Value Reference Range Interpretation Comments Hypochrom (test code = Slight (08/21/2011 N Hypochrom) 04:28:00) [facility] CenterOaducwmHFQGWAAXSJ0029-39-29 10:28:00 Test Item Value Reference Range Interpretation Comments Monocytes # (test code 0.6 See_Comment N [Aut omated message] The = Monocytes #) system which generated this result tra nsmitted reference range : <=0.8. The reference r leo was not used to int erpret this result as normal/abnormal . [facility] CenterGaymxsfSDTEUZLDGX5549-51-88 10:28:00 Test Item Value Reference Range Interpretation Comments Eosinophils # (test code 0.0 See_Comment N [A utomated message] The = Eosinophils #) system whic h generated this result tra nsmitted reference range : <=0.5. The reference r leo was not used to int erpret this result as normal/abnormal . [facility] CenterYxodsgsABJCXTBGTN4195-16-48 10:28:00 Test Item Value Reference Range Interpretation Comments Segs-Bands # (test code = Segs-Bands #) 5.3 1.5-8.1 N [facility] CenterKipxujxIJAPQCCUKO3447-25-53 10:28:00 Test Item Value Reference Range Interpretation Comments Lymphocytes # (test code = Lymphocytes 1.3 1.0-5.5 N #) [facility] CenterXkjimsrNCBVSMASYW4070-97-72 10:28:00 Test Item Value Reference Range Interpretation Comments Basophils (test code = 0.5 See_Comment N [Aut omated message] The Basophils) system which ge nerated this result tra nsmitted reference range : <=1.0. The reference r leo was not used to int erpret this result as normal/abnormal . [facility] CenterTfuewfkUHQVPIXNVK6705-26-89 10:28:00 Test Item Value Reference Range Interpretation Comments Monocytes (test code = Monocytes) 8.5 2.0-12.0 N [facility] CenterMsnxhszZVYBSWIRPQ1028-92-85 10:28:00 Test Item Value Reference Range Interpretation Comments Eosinophils (test code = 0.3 See_Comment N [A utomated message] The Eosinophils) system which ge nerated this result tra nsmitted reference range : <=4.0. The reference r leo was not used to int erpret this result as normal/abnormal . [facility] CenterYfultapSSHOGLJWMU1085-78-75 10:28:00 Test Item Value Reference Range Interpretation Comments Lymphocytes (test code = Lymphocytes) 17.3 20.0-40.0 L [facility] CenterUuomvqrSFJTMJOLEJ4689-89-94 10:28:00 Test Item Value Reference Range Interpretation Comments Segs (test code = Segs) 73.4 45.0-75.0 N [facility] GLUCOSE MKMCUPO1688-70-87 07:47:00 Test Item Value Reference Range Interpretation Comments Comment2 (test code = Comment2) Verify w/Lab [facility] CenterIabnzgqDNRTEEWMU5775-32-11 21:58:00 Test Item Value Reference Range Interpretation Comments S Preg (test code = S Negative (08/19/2011 N Preg) 15:58:00) [facility] CenterQfiiwmvJGCBYXEPY1409-48-64 21:58:00 Test Item Value Reference Range Interpretation Comments Lipase Lvl (test code = Lipase Lvl) 169 73-393 N [facility] CenterMzlqkcjFLLKGXVTN2512-84-97 21:58:00 Test Item Value Reference Range Interpretation Comments ALT (test code = ALT) 54 See_Comment N [Auto mated message] The system which ge nerated this result transmit rohit reference range : <=65. The reference range was not used to interpr et this result as reji l/abnormal. [facility] CenterRajxbsoHLSYFFAYF2740-61-64 21:58:00 Test Item Value Reference Range Interpretation Comments Alk Phos (test code = Alk Phos) 110 39-136 N [facility] CenterUlevuwiEBYWLXRRV2403-69-01 21:58:00 Test Item Value Reference Range Interpretation Comments Bili Direct (test code 0.1 See_Comment N [Aut omated message] The = Bili Direct) system which generated this result tra nsmitted reference range : <=0.3. The reference r leo was not used to int erpret this result as reji l/abnormal. [facility] CenterKizukcwZHGGRELSW5360-89-98 21:58:00 Test Item Value Reference Range Interpretation Comments Bili Total (test code = Bili Total) 0.9 0.2-1.3 N [facility] CenterEwhxvdmHZPBJHFPT7147-15-64 21:58:00 Test Item Value Reference Range Interpretation Comments Albumin Lvl (test code = Albumin Lvl) 4.4 3.5-5.0 N [facility] CenterYimmdnzLNAMDSFLB4178-29-11 21:58:00 Test Item Value Reference Range Interpretation Comments Total Protein (test code = Total 8.8 6.4-8.4 H Protein) [facility] CenterFevlhkjPRTIWWMGM4194-07-16 21:58:00 Test Item Value Reference Range Interpretation Comments Bili Indirect (test 0.8 See_Comment N [Automa rohit message] The code = Bili Indirect) system which generated this result tra nsmitted reference range : <=1.0. The reference r leo was not used to int erpret this result as normal/abnormal . [facility] CenterHzaqwfuVMCCWHFCP8921-03-90 21:58:00 Test Item Value Reference Range Interpretation Comments AST (test code = AST) 36 See_Comment N [Auto mated message] The system which ge nerated this result transmit rohit reference range : <=37. The reference range was not used to interpr et this result as reji l/abnormal. [facility] CenterTswmedsVBDFKNFZR5099-99-41 21:58:00 Test Item Value Reference Range Interpretation Comments Globulin (test code = Globulin) 4.4 2.0-4.0 H [facility]RcbublxWBEXAORXN0910-65-83 21:58:00 Test Item Value Reference Range Interpretation Comments A/G Ratio (test code = A/G Ratio) 1.0 0.7-1.6 N [facility] CenterNvlwhwxXUSKQYZMRP7149-38-00 21:58:00 Test Item Value Reference Range Interpretation Comments UA Bacteria (test code Occasional /HPF N = UA Bacteria) (08/19/2011 15:58:00) [facility] CenterYnlpqfmYUITWUGZIA7194-19-95 21:58:00 Test Item Value Reference Range Interpretation Comments UA RBC (test 3-5 /HPF See_Comment A [Automated mes pastor] code = UA RBC) *ABN*(08/19/2011 The syste m which 15:58:00) generated this result transmitted ref erence range: <=2. The reference range was not used to int erpret this result as normal/abnormal . [facility]aUskrtxqBOFGFQRMDW6515-18-58 21:58:00 Test Item Value Reference Range Interpretation Comments UA WBC (test code = 3 See_Comment [Automa rohit message] The UA WBC) system which ge nerated this result transmit rohit reference range : <=5. The reference range was not used to interpr et this result as reji l/abnormal. [facility] CenterZmanzhlDOXBLQLMHU3903-63-44 21:58:00 Test Item Value Reference Range Interpretation Comments UA Mucus (test code = Few /LPF (08/19/2011 N UA Mucus) 15:58:00) [facility]aSreayhkCZFNRZOSPY6961-18-94 21:58:00 Test Item Value Reference Range Interpretation Comments UA Amorph Destiny (test Occasional /HPF A code = UA Amorph *ABN*(08/19/2011 Destiny) 15:58:00) [facility]aUsjflanLBGQYNLYOB6973-62-42 21:58:00 Test Item Value Reference Range Interpretation Comments UA Urobilinogen (test code = UA 0.2 0.1-1.0 N Urobilinogen) [facility] CenterZhmdamzTUMCCDANMT0941-93-59 21:58:00 Test Item Value Reference Range Interpretation Comments UA Sq Epi (test code = Rare /LPF (08/19/2011 N UA Sq Epi) 15:58:00) [facility] CenterZcomjphOOYFNBGINO1329-52-57 21:58:00 Test Item Value Reference Range Interpretation Comments Micro? (test code = Performed (08/19/2011 N Micro?) 15:58:00) [facility]EdiowloPYTMDZWURT3914-02-45 21:58:00 Test Item Value Reference Range Interpretation Comments UA Leuk Est (test Negative (08/19/2011 N code = UA Leuk Est) 15:58:00) [facility] CenterLilhjdePJWDDUPGRM3055-47-96 21:58:00 Test Item Value Reference Range Interpretation Comments UA Nitrite (test code Negative (08/19/2011 N = UA Nitrite) 15:58:00) [facility] CenterRmtofswWZCUISMNOB2886-45-74 21:58:00 Test Item Value Reference Range Interpretation Comments UA pH (test code = UA pH) 5.5 1 5.0-8.0 N [facility] CenterHatbwnbGDVCTOCGKC0682-42-13 21:58:00 Test Item Value Reference Range Interpretation Comments UA Blood (test code = Trace *ABN*(08/19/2011 A UA Blood) 15:58:00) [facility] CenterLunplngHUAEOUAEYP0636-73-34 21:58:00 Test Item Value Reference Range Interpretation Comments UA Bili (test code = Negative (08/19/2011 N UA Bili) 15:58:00) [facility] CenterYtojddjPMADSZABXF0567-06-40 21:58:00 Test Item Value Reference Range Interpretation Comments UA Ketones (test code = 80 mg/dL A UA Ketones) *ABN*(08/19/2011 15:58:00) [facility] CenterWhkdfssVMBZCIACIW6687-59-85 21:58:00 Test Item Value Reference Range Interpretation Comments UA Glucose (test code = >=1000 mg/dL A UA Glucose) *ABN*(08/19/2011 15:58:00) [facility] CenterZusjqbwTRIJJHOPLY0769-29-20 21:58:00 Test Item Value Reference Range Interpretation Comments UA Protein (test code Negative (08/19/2011 N = UA Protein) 15:58:00) [facility] CenterNhaigquHIWDTIUQDF8845-89-33 21:58:00 Test Item Value Reference Range Interpretation Comments UA Turbidity (test code Slight Cloudy N = UA Turbidity) (08/19/2011 15:58:00) [facility] CenterReufarsFWRUFSFSEP4002-27-01 21:58:00 Test Item Value Reference Range Interpretation Comments UA Spec Grav (test code = UA Spec 1.025 1 Grav) [facility] CenterUwnmdekBQWKVTMFAP7951-99-31 21:58:00 Test Item Value Reference Range Interpretation Comments UA Color (test code = Yellow (08/19/2011 N UA Color) 15:58:00) [facility] CenterBcgaghcJRNFUNHEM5999-43-81 21:13:00 Test Item Value Reference Range Interpretation Comments AST (test code = AST) 23 See_Comment N [Auto mated message] The system which ge nerated this result transmit rohit reference range : <=37. The reference range was not used to interpr et this result as reji l/abnormal. [facility] CenterLryrliyCRMICOOXJ1835-02-03 21:13:00 Test Item Value Reference Range Interpretation Comments Bili Total (test code = Bili Total) 1.0 0.2-1.3 N [facility] CenterKoufjlxRPHUFAFFF2334-10-50 21:13:00 Test Item Value Reference Range Interpretation Comments Alk Phos (test code = Alk Phos) 115 39-136 N [facility] CenterUarxtagESZMHRSEX8274-65-77 21:13:00 Test Item Value Reference Range Interpretation Comments ALT (test code = ALT) 56 See_Comment N [Auto mated message] The system which ge nerated this result transmit rohit reference range : <=65. The reference range was not used to interpr et this result as reji l/abnormal. [facility] CenterGkgfexwIFTEFVEMN1245-09-12 21:13:00 Test Item Value Reference Range Interpretation Comments Total Protein (test code = Total 9.0 6.4-8.4 H Protein) [facility] CenterZffgfxfRSASWHOIN2946-14-00 21:13:00 Test Item Value Reference Range Interpretation Comments Albumin Lvl (test code = Albumin Lvl) 4.8 3.5-5.0 N [facility] CenterQuwjliiAHCHFOROR0015-06-74 21:13:00 Test Item Value Reference Range Interpretation Comments Globulin (test code = Globulin) 4.2 2.0-4.0 H [facility] CenterIqbzfzuBELUOJRGQ5815-94-99 21:13:00 Test Item Value Reference Range Interpretation Comments A/G Ratio (test code = A/G Ratio) 1.1 0.7-1.6 N [facility] CenterHnwzzekMQXMNWBHI7112-65-05 21:13:00 Test Item Value Reference Range Interpretation Comments B/C Ratio (test code = B/C Ratio) 30 6-25 H [facility] CenterFnjpuitZKJXPCDFSK2313-91-42 21:13:00 Test Item Value Reference Range Interpretation Comments RBC Morph (test code = Normal (08/19/2011 N RBC Morph) 15:13:00) [facility] CenterBimboelPSBWEUADIZ6043-11-61 21:13:00 Test Item Value Reference Range Interpretation Comments Large Plt (test code = Slight *ABN*(08/19/2011 A Large Plt) 15:13:00) [facility] CenterVtqarlzKPTMITDPJA7938-98-10 21:13:00 Test Item Value Reference Range Interpretation Comments Atypical Lymphs (test code = Atypical 0.0 N Lymphs) [facility] CenterPpoutyhAUSOBHMAGO0652-84-56 21:13:00 Test Item Value Reference Range Interpretation Comments Bands (test code = 0.0 See_Comment N [Automat ed message] The Bands) system which ge nerated this result transmit rohit reference range : <=11.0. The reference r leo was not used to interpr et this result as reji l/abnormal. [facility] CenterGjknokmAFMNXROGP1924-29-85 21:10:00 Test Item Value Reference Range Interpretation Comments O2 Sat Roberth (test code = O2 Sat Roberth) 74.0 40.0-70.0 H [facility] CenterEctohuwTGZKYGIVC5502-20-94 21:10:00 Test Item Value Reference Range Interpretation Comments Temp Roberth (test code = Temp Roberth) 37.0 [facility] CenterWaecacwGBONVHFXD5780-58-49 21:10:00 Test Item Value Reference Range Interpretation Comments pO2 Roberth (test code = pO2 Roberth) 42 20-49 N [facility] CenterDyokderGJVNNJCQJ9211-82-21 21:10:00 Test Item Value Reference Range Interpretation Comments HCO3 Roberth (test code = HCO3 Roberth) 17.3 22.0-26.0 L [facility] CenterDrfigacVNSIEMBSI7154-00-47 21:10:00 Test Item Value Reference Range Interpretation Comments pH Roberth (test code = pH Roberth) 7.34 7.28-7.42 N [facility] CenterXliawduTTAWBRDLZ9135-85-45 21:10:00 Test Item Value Reference Range Interpretation Comments pCO2 Roberth (test code = pCO2 Roberth) 32 38-52 L [facility]aTfsvbzlKIBGMHGRP6668-13-02 21:10:00 Test Item Value Reference Range Interpretation Comments BE Roberth (test code = -7 See_Comment L [Automa rohit message] The BE Roberth) system which ge nerated this result transmit rohit reference range : <=2. The reference range was not used to interpr et this result as reji l/abnormal. [facility]aCxpkgxcYRTEYAUTSM2394-18-72 20:34:00 Test Item Value Reference Range Interpretation Comments CDC-HIV 1/2 Ab (test Negative *NA*(08/19/2011 code = CDC-HIV 1/2 14:34:00) Ab) [facility]
[2021-10-08] MEDS ORDERED: ONDANSETRON 4 MG/2 ML VIAL ONE ×3 (06:58→17:19)
[2021-10-08] MEDS ORDERED: METOCLOPRAMIDE 10 MG/2mL INJ ONE (06:58)
[2021-10-08] MEDS ORDERED: DIPHENHYDRAMINE 50 MG/ML VIAL ONE ×2 (06:58→11:51)
[2021-10-08] MEDS ORDERED: FAMOTIDINE 20 MG/2 ML VIAL IV ONE (06:59)
[2021-10-08 07:37] LABS: Albumin 3.3 g/dL (3.4-5.0); Bilirubin Total 0.5 mg/dL (0.2-1.0); Protein, Total 6.4 g/dL (6.4-8.2)
[2021-10-08 07:40] LABS: Potassium 6.1 mmol/L (3.5-5.1)
[2021-10-08] MEDS ORDERED: HYDROMORPHONE HCL 1 MG/ML INJ ONE ×2 (07:44→20:07)
[2021-10-08 08:15] LABS: Absolute Lymphocytes (CBC) 1.9 K/uL (0.7-4.9); Hematocrit 30.2 % (36.0-45.0); Lymphocytes % 34.9 % (15.3-44.8); MPV 10.3 fL (7.6-11.3); RBC Red Blood Cell Count 3.38 M/uL (3.86-4.86)
[2021-10-08 08:39] LABS: Anisocytosis SLIGHT; Blood Morphology Comment NOTED (NOT SEEN); Platelet Estimate DECR
--- NOTE | 2021-10-08 10:07 | EDPHYS ---
Physician Documentation [facility] Name: Cathi Zaldivar Age: 40 yrs Sex: Female : 1980 Arrival Date: 10/08/2021 Time: 05:12 Bed 6 Private MD: DWIGHT Physician Luis Sandra HPI: 10/08 06:30 This 40 yrs old Female presents to ER via Wheelchair with complaints of mh7 Abdominal Pain. 06:30 The patient presents with abdominal pain in the upper abdomen. Onset: The mh7 symptoms/episode began/occurred 3 day(s) ago. The symptoms do not radiate. Associated signs and symptoms: Pertinent positives: nausea and vomiting, diarrhea, Pertinent negatives: anorexia, blood in stools, chest pain, constipation, dysuria, fever, headache, hematuria, palpitations, shortness of breath, vaginal discharge, vomiting blood. The symptoms are described as intermittent, vague, waxing/waning. Modifying factors: The symptoms are alleviated by nothing, the symptoms are aggravated by nothing. Severity of pain: At its worst the pain was moderate yesterday, in the emergency department the pain is unchanged. The patient has been recently seen at the [facility] Emergency Department, this week. Historical: - Allergies: 05:53 ambien; lp1 05:53 Codeine; lp1 05:53 GUAIFENESIN; lp1 05:53 Ibuprofen; lp1 05:53 Lisinopril; lp1 05:53 Morphine; lp1 05:53 Nitrofurantoin Macrocrystal; lp1 05:53 PENICILLINS; lp1 05:53 Prolixin; lp1 05:53 zolpidem tartrate; lp1 05:54 ambien; as6 05:54 Codeine; as6 05:54 GUAIFENESIN; as6 05:54 Ibuprofen; as6 05:54 Lisinopril; as6 05:54 Morphine; as6 05:54 Nitrofurantoin Macrocrystal; as6 05:54 PENICILLINS; as6 05:54 Prolixin; as6 05:54 zolpidem tartrate; as6 - PMHx: 05:53 "mental problems"; CHF; chronic kidney disease; cyclic vomiting syndrome; Diabetes - lp1 NIDDM; Dialysis; m-w-f; ENCEPHALOPATHY; Gastroparesis; Hypertension; ibs; liver failure; PERIPHERAL NEUROPATHY; pseudo aneurysm R groin; Seizures; 05:54 "mental problems"; CHF; chronic kidney disease; cyclic vomiting syndrome; Diabetes - as6 NIDDM; Dialysis; m-w-f; ENCEPHALOPATHY; Gastroparesis; Hypertension; ibs; liver failure; PERIPHERAL NEUROPATHY; pseudo aneurysm R groin; Seizures; - PSHx: 05:53 section; dialysis catheter R chest wall; eye removed; lp1 05:54 section; dialysis catheter R chest wall; eye removed; as6 - Immunization history:: Adult Immunizations up to date. - Social history:: Smoking status: Patient reports the use of cigarette tobacco products, smokes one-half pack cigarettes per day. ROS: 06:30 Constitutional: Negative for fever, chills, and weight loss, Eyes: Negative for injury, mh7 pain, redness, and discharge, ENT: Negative for injury, pain, and discharge, Neck: Negative for injury, pain, and swelling, Cardiovascular: Negative for chest pain, palpitations, and edema, Respiratory: Negative for shortness of breath, cough, wheezing, and pleuritic chest pain, Back: Negative for injury and pain, : Negative for injury, bleeding, discharge, and swelling, MS/Extremity: Negative for injury and deformity, Skin: Negative for injury, rash, and discoloration, Neuro: Negative for headache, weakness, numbness, tingling, and seizure, Psych: Negative for depression, anxiety, suicide ideation, homicidal ideation, and hallucinations, Allergy/Immunology: Negative for hives, rash, and allergies, Endocrine: Negative for neck swelling, polydipsia, polyuria, polyphagia, and marked weight changes, Hematologic/Lymphatic: Negative for swollen nodes, abnormal bleeding, and unusual bruising. Exam: 06:30 Head/Face: Normocephalic, atraumatic. Eyes: Pupils equal round and reactive to light, mh7 extra-ocular motions intact. Lids and lashes normal. Conjunctiva and sclera are non-icteric and not injected. Cornea within normal limits. Periorbital areas with no swelling, redness, or edema. Neck: Trachea midline, no thyromegaly or masses palpated, and no cervical lymphadenopathy. Supple, full range of motion without nuchal rigidity, or vertebral point tenderness. No Meningismus. Chest/axilla: Normal chest wall appearance and motion. Nontender with no deformity. No lesions are appreciated. Cardiovascular: Regular rate and rhythm with a normal S1 and S2. No gallops, murmurs, or rubs. Normal PMI, no JVD. No pulse deficits. Respiratory: Lungs have equal breath sounds bilaterally, clear to auscultation and percussion. No rales, rhonchi or wheezes noted. No increased work of breathing, no retractions or nasal flaring. 06:30 Back: No spinal tenderness. No costovertebral tenderness. Full range of motion. Skin: Warm, dry with normal turgor. Normal color with no rashes, no lesions, and no evidence of cellulitis. MS/ Extremity: Pulses equal, no cyanosis. Neurovascular intact. Full, normal range of motion. Neuro: Awake and alert, GCS 15, oriented to person, place, time, and situation. Cranial nerves II-XII grossly intact. Motor strength 5/5 in all extremities. Sensory grossly intact. Cerebellar exam normal. Normal gait. Psych: Awake, alert, with orientation to person, place and time. Behavior, mood, and affect are within normal limits. 06:30 Constitutional: The patient appears in no acute distress, alert, awake, uncomfortable. 06:30 Abdomen/GI: Inspection: abdomen appears normal, Bowel sounds: normal, in all quadrants, Palpation: mild abdominal tenderness, in all quadrants, Rectal exam: the exam is deferred, because of patient request, Indicators: McBurney's point is not tender, Garcia's sign is negative, Rovsing's sign is negative, Obturator sign is negative, Psoas sign is negative, Liver: no appreciated palpable abnormalities, Hernia: not appreciated. Vital Signs: 05:51 BP 198 / 103; Pulse 65; Resp 18; Temp 97.9(O); Pulse Ox 100% on R/A; Weight 77.11 kg lp1 (R); Height 5 ft. 3 in. (160.02 cm); Pain 10/10; 06:30 BP 215 / 112; Pulse 66; Pulse Ox 100% on R/A; lg3 07:30 BP 216 / 104; Pulse 75; Resp 20 S; Temp 98.0(TE); Pulse Ox 100% on R/A; aa5 08:15 Pulse Ox 88% on R/A; aa5 08:17 Pulse Ox 100% on 2 lpm NC; aa5 11:22 BP 215 / 88; Pulse 81; Resp 16 S; Pulse Ox 100% on 2 lpm NC; aa5 13:05 BP 200 / 110; iw 05:51 Body Mass Index 30.11 (77.11 kg, 160.02 cm) lp1 13:05 in dialysis iw MDM: 07:32 Patient medically screened. juan 09:59 Differential diagnosis: gastritis, Mesenteric ischemia or infarction, non-specific abd juan pain, pancreatitis, Peritonitis. Data reviewed: vital signs, nurses notes, lab test result(s), EKG, radiologic studies, plain films. Data interpreted: traffic monitor specialist: rate is 75 beats/min, rhythm is regular, Pulse oximetry: on room air is 100 %. Test interpretation: by ED physician or midlevel provider: ECG, plain radiologic studies. Counseling: I had a detailed discussion with the patient and/or guardian regarding: the historical points, exam findings, and any diagnostic results supporting the discharge/admit diagnosis, lab results, radiology results, the need for outpatient follow up, for definitive care, NEPHROLOGY. 10/08 06:48 Order name: CBC with Diff; Complete Time: 09:50 7 10/08 06:48 Order name: CMP; Complete Time: 09:50 7 10/08 06:48 Order name: Lipase; Complete Time: 09:50 7 10/08 08:40 Order name: Manual Differential; Complete Time: 09:50 [facility] 10/08 10:24 Order name: COVID-19 SARS RT PCR (Document "Date of Onset" if Symptomatic) replaced by [facility] 10/08 11:05 Order name: Glucose, Ancillary Testing EDWI 10/08 11:57 Order name: Glucose, Ancillary Testing EDWI 10/08 17:17 Order name: Glucose, Ancillary Testing EDMS 10/08 18:14 Order name: Glucose, Ancillary Testing EDMS 10/08 19:45 Order name: Glucose, Ancillary Testing EDWI 10/08 06:48 Order name: IV Saline Lock; Complete Time: 07:09 7 10/08 06:48 Order name: Labs collected and sent; Complete Time: 07:09 7 10/08 09:59 Order name: EKG; Complete Time: 10:00 10/08 07:26 Order name: Labs - recollect needed: recollect cbc; Complete Time: 08:39 bd 10/08 07:44 Order name: Labs - recollect needed: blue tube requested by lab; Complete Time: 08:39 aa5 10/08 09:59 Order name: EKG - Nurse/Tech; Complete Time: 11:36 bd Administered Medications: 07:08 Drug: Reglan (metoCLOPramide) 10 mg Route: IVP; Site: Other; lg3 07:09 Follow up: Response: No adverse reaction lg3 07:08 Drug: Benadryl (diphenhydrAMINE) 25 mg Route: IVP; Site: Other; lg3 07:08 Follow up: Response: No adverse reaction lg3 07:09 Drug: Pepcid (famotidine) 20 mg Route: IVP; Site: Other; lg3 07:10 Follow up: Response: No adverse reaction lg3 07:10 Drug: Zofran (Ondansetron) 4 mg Route: IVP; Site: Other; lg3 07:10 Follow up: Response: No adverse reaction lg3 07:50 Drug: Dilaudid (HYDROmorphone) 1 mg {Note: to right chest .} Route: IVP; Site: Other; aa5 20:01 Follow up: Response: No adverse reaction as6 10:25 Drug: D10 in Water [2 mL/kg] 500 ml Route: IVP; Site: Other; aa5 11:00 Follow up: 250cc completed aa5 11:25 Follow up: 250cc completed aa5 10:30 Drug: Kayexalate (polystyrene) 45 grams Route: PO; aa5 20:00 Follow up: Response: No adverse reaction as6 10:32 Drug: Zofran (Ondansetron) 4 mg Route: IVP; Site: Other; aa5 19:59 Follow up: Response: No adverse reaction as6 10:34 Drug: Dilaudid (HYDROmorphone) 0.5 mg Route: IVP; Site: Other; aa5 20:00 Follow up: Response: No adverse reaction; RASS: Alert and Calm (0) as6 10:35 Drug: Lasix (furosemide) 60 mg Route: IVP; Site: Other; aa5 20:00 Follow up: Response: No adverse reaction as6 10:40 Drug: Albuterol - atroVENT (ipratropium) (3:1) (2.5 mg - 0.5 mg) 3 ml Route: Nebulizer; aa5 20:00 Follow up: Response: No adverse reaction as6 11:00 Drug: Insulin Regular Human 5 units {Co-Signature: dw3 (Nikki Bowers RN).} Route: aa5 IVP; Site: Other; 20:00 Follow up: Response: No adverse reaction as6 11:17 Not Given (Physician Discretion): D50W 25 ml IVP once; (0.5 amp) aa5 11:49 Drug: Benadryl (diphenhydrAMINE) 25 mg Route: IVP; Site: Other; aa5 19:59 Follow up: Response: No adverse reaction as6 12:49 Not Given (PT AT [facility]): hydrALAZINE 20 mg IVP once bp 13:00 Drug: hydrALAZINE 20 mg {Note: right breast.} Route: IVP; Site: Other; iw 19:59 Follow up: Response: No adverse reaction as6 Point of Care Testing: Blood Glucose: 10:20 Blood Glucose: 63 mg/dL; aa5 Ranges: Critical Glucose Levels:Adult <50 mg/dl or >400 mg/dl <40 mg/dl or >180 mg/dl Disposition Summary: 10/08/21 10:06 Hospitalization Ordered Hospitalization Status: Observation juan Provider: Chandler Bautista cha Condition: Stable juan Problem: new juan Symptoms: have improved juan Bed/Room Type: Standard juan Location: Telemetry/MedSurg (observation)(10/08/21 18:39) Room Assignment: 219(10/08/21 18:39) bd Diagnosis - End stage renal disease - ON HD juan - Gastroparesis juan - Essential (primary) hypertension juan - Hyperkalemia juan Discharge Instructions: - Discharge Summary Sheet juan - Tissue Adhesive Wound Care juan - Tissue Adhesive Wound Care, [id number] juan Forms: - Medication Reconciliation Form juan - SBAR form juan Signatures: Dispatcher [employer] Shruthi Tyson Corey, MD MD cha Williams, Irene, RN RN iw Lorelei Newman RN RN aa5 Hollie Tomas RN RN lp1 Debo Interiano RN RN lg3 Сергей Li MD MD 7 Yuri Mathis, RN RN as6 Latrell Fischer RN bp Nikki Bowers RN dw3 Corrections: (The following items were deleted from the chart) 07:43 07:39 Labs - recollect needed ordered. bd aa5 08:39 06:48 Urine Dipstick-Ancillary ordered. [facility] iw 16:48 10:06 Telemetry/MedSurg (observation) [facility] iw 16:48 10:06 [facility] iw 18:39 16:48 BR ER HOLD bd 18:39 16:48 ERHOLD- iw bd
--- NOTE | 2021-10-08 10:07 | ER ---
Nurse's Notes [facility] Name: Cathi Zaldivar Age: 40 yrs Sex: Female : 1980 Arrival Date: 10/08/2021 Time: 05:12 Bed 6 Private MD: Diagnosis: End stage renal disease-ON HD;Gastroparesis;Essential (primary) hypertension;Hyperkalemia Presentation: 10/08 05:51 Chief complaint: Patient states: general abdominal pain that has been ongoing, seen in lp1 ER 2 days ago, no relief with medications prescribed; Hx of gastroparesis. Coronavirus screen: At this time, the client does not indicate any symptoms associated with coronavirus-19. Ebola Screen: No symptoms or risks identified at this time. Initial Sepsis Screen: Does the patient meet any 2 criteria? No. Patient's initial sepsis screen is negative. Does the patient have a suspected source of infection? No. Patient's initial sepsis screen is negative. Risk Assessment: Do you want to hurt yourself or someone else? Patient reports no desire to harm self or others. Onset of symptoms was October 08, 2021. 05:51 Method Of Arrival: Wheelchair lp1 05:51 Acuity: JESSICA 2 lp1 Historical: - Allergies: 05:53 ambien; lp1 05:53 Codeine; lp1 05:53 GUAIFENESIN; lp1 05:53 Ibuprofen; lp1 05:53 Lisinopril; lp1 05:53 Morphine; lp1 05:53 Nitrofurantoin Macrocrystal; lp1 05:53 PENICILLINS; lp1 05:53 Prolixin; lp1 05:53 zolpidem tartrate; lp1 05:54 ambien; as6 05:54 Codeine; as6 05:54 GUAIFENESIN; as6 05:54 Ibuprofen; as6 05:54 Lisinopril; as6 05:54 Morphine; as6 05:54 Nitrofurantoin Macrocrystal; as6 05:54 PENICILLINS; as6 05:54 Prolixin; as6 05:54 zolpidem tartrate; as6 - PMHx: 05:53 "mental problems"; CHF; chronic kidney disease; cyclic vomiting syndrome; Diabetes - lp1 NIDDM; Dialysis; m-w-f; ENCEPHALOPATHY; Gastroparesis; Hypertension; ibs; liver failure; PERIPHERAL NEUROPATHY; pseudo aneurysm R groin; Seizures; 05:54 "mental problems"; CHF; chronic kidney disease; cyclic vomiting syndrome; Diabetes - as6 NIDDM; Dialysis; m-w-f; ENCEPHALOPATHY; Gastroparesis; Hypertension; ibs; liver failure; PERIPHERAL NEUROPATHY; pseudo aneurysm R groin; Seizures; - PSHx: 05:53 section; dialysis catheter R chest wall; eye removed; lp1 05:54 section; dialysis catheter R chest wall; eye removed; as6 - Immunization history:: Adult Immunizations up to date. - Social history:: Smoking status: Patient reports the use of cigarette tobacco products, smokes one-half pack cigarettes per day. Screenin:42 Abuse screen: Denies threats or abuse. Denies injuries from another. Nutritional lg3 screening: No deficits noted. Tuberculosis screening: No symptoms or risk factors identified. Fall Risk None identified. Assessment: 06:42 General: Appears in no apparent distress. uncomfortable, Behavior is crying, fussy. lg3 Pain: Complains of pain in abdomen. Neuro: No deficits noted. Level of Consciousness is awake, alert, obeys commands, Oriented to person, place, time, situation. Cardiovascular: Denies chest pain, shortness of breath. Respiratory: No deficits noted. Airway is patent Trachea midline Respiratory effort is even, unlabored, Respiratory pattern is regular, symmetrical. GI: Bowel sounds present X 4 quads. Abd is soft X 4 quads Abdomen is tender to palpation X 4 quads. Guarding noted. : No deficits noted. No signs and/or symptoms were reported regarding the genitourinary system. EENT: No deficits noted. No signs and/or symptoms were reported regarding the EENT system. Derm: No deficits noted. No signs and/or symptoms reported regarding the dermatologic system. Skin is intact, is healthy with good turgor, Skin is dry, Skin is pink, warm \\T\\ dry. Musculoskeletal: No signs and/or symptoms reported regarding the musculoskeletal system. Circulation, motion, and sensation intact. Capillary refill < 3 seconds, Range of motion: intact in all extremities. 06:46 General: pt's blood pressure currently elevated. pt reports missing 2 dialysis lg3 treatments this week. notified provider. no interventions ordered at this time. 07:25 General: Appears uncomfortable, Behavior is calm, cooperative. Pain: Complains of pain aa5 in right lower quadrant and left lower quadrant Pain currently is 10 out of 10 on a pain scale. Quality of pain is described as sharp, Pain began 2-3 days ago. Is continuous. Neuro: Level of Consciousness is awake, alert, obeys commands, Oriented to person, place, time, situation. Cardiovascular: Heart tones S1 S2 present Edema is 2+ to right lower leg, pt states "my leg has been swollen since may 2021 when they did surgery on my groin" Rhythm is regular Dialysis shunt: in the right arm, with palpable thrill, with auscultated bruit, with no erythema, with no edema, no bleeding noted. Respiratory: Airway is patent Respiratory effort is even, unlabored, Respiratory pattern is regular, symmetrical, Breath sounds are clear bilaterally. GI: Abdomen is round non-distended, Bowel sounds present X 4 quads. Abd is soft and non tender X 4 quads. Reports nausea has improved. : Reports she does not make urine anymore. EENT: No signs and/or symptoms were reported regarding the EENT system. Derm: Skin is pink, warm \\T\\ dry. Musculoskeletal: Range of motion: intact in all extremities. 07:35 Reassessment: Pt requesting pain medication, MD notified. . aa5 07:51 Reassessment: lab at bedside recollecting labs . aa5 08:05 Reassessment: Pt resting in bed with eyes closed, appears comfortable, states feeling aa5 better and pain has decreased. . 08:15 Reassessment: Pt's O2 sat decreased after Dilaudid administration, pt placed on O2 via aa5 NC and O2 sat increased, pt states no complaints (see VS). . 09:00 Reassessment: Pt resting in bed with eyes closed, respirations even and unlabored. . aa5 10:30 Reassessment: Patient is alert, oriented x 3, equal unlabored respirations, skin aa5 warm/dry/pink. 11:50 Reassessment: Pt transported via stretcher to dialysis floor (2nd floor) for dialysis, aa5 accompanied by fastener technologist, pt will return to ER. . 15:50 Reassessment: Pt back from dialysis. dw3 19:33 General: Attempted to call report. Per Frankie Lima will call back for report. . lg3 Vital Signs: 05:51 BP 198 / 103; Pulse 65; Resp 18; Temp 97.9(O); Pulse Ox 100% on R/A; Weight 77.11 kg lp1 (R); Height 5 ft. 3 in. (160.02 cm); Pain 10/10; 06:30 BP 215 / 112; Pulse 66; Pulse Ox 100% on R/A; lg3 07:30 BP 216 / 104; Pulse 75; Resp 20 S; Temp 98.0(TE); Pulse Ox 100% on R/A; aa5 08:15 Pulse Ox 88% on R/A; aa5 08:17 Pulse Ox 100% on 2 lpm NC; aa5 11:22 BP 215 / 88; Pulse 81; Resp 16 S; Pulse Ox 100% on 2 lpm NC; aa5 13:05 BP 200 / 110; iw 05:51 Body Mass Index 30.11 (77.11 kg, 160.02 cm) lp1 13:05 in dialysis iw ED Course: 05:12 Patient arrived in ED. bp1 05:33 Yuri Mathis, TABATHA is Primary Nurse. as6 05:48 Сергей Li MD is Attending Physician. mh7 05:51 Arm band placed on. lp1 05:53 Triage completed. lp1 05:54 Patient has correct armband on for positive identification. Placed in gown. lp1 07:07 Inserted saline lock: 22 gauge in right ,using aseptic technique. breast Blood lg3 collected. 07:09 CBC with Diff Sent. lg3 07:09 CMP Sent. lg3 07:09 Lipase Sent. lg3 07:32 Attending Physician role handed off by Сергей Li MD juan 07:32 Luis Sandra MD is Attending Physician. juan 10:04 Chandler Bautista is Hospitalizing Provider. juan 15:50 No provider procedures requiring assistance completed. Patient admitted, IV remains in dw3 place. Administered Medications: 07:08 Drug: Reglan (metoCLOPramide) 10 mg Route: IVP; Site: Other; lg3 07:09 Follow up: Response: No adverse reaction lg3 07:08 Drug: Benadryl (diphenhydrAMINE) 25 mg Route: IVP; Site: Other; lg3 07:08 Follow up: Response: No adverse reaction lg3 07:09 Drug: Pepcid (famotidine) 20 mg Route: IVP; Site: Other; lg3 07:10 Follow up: Response: No adverse reaction lg3 07:10 Drug: Zofran (Ondansetron) 4 mg Route: IVP; Site: Other; lg3 07:10 Follow up: Response: No adverse reaction lg3 07:50 Drug: Dilaudid (HYDROmorphone) 1 mg {Note: to right chest .} Route: IVP; Site: Other; aa5 20:01 Follow up: Response: No adverse reaction as6 10:25 Drug: D10 in Water [2 mL/kg] 500 ml Route: IVP; Site: Other; aa5 11:00 Follow up: 250cc completed aa5 11:25 Follow up: 250cc completed aa5 10:30 Drug: Kayexalate (polystyrene) 45 grams Route: PO; aa5 20:00 Follow up: Response: No adverse reaction as6 10:32 Drug: Zofran (Ondansetron) 4 mg Route: IVP; Site: Other; aa5 19:59 Follow up: Response: No adverse reaction as6 10:34 Drug: Dilaudid (HYDROmorphone) 0.5 mg Route: IVP; Site: Other; aa5 20:00 Follow up: Response: No adverse reaction; RASS: Alert and Calm (0) as6 10:35 Drug: Lasix (furosemide) 60 mg Route: IVP; Site: Other; aa5 20:00 Follow up: Response: No adverse reaction as6 10:40 Drug: Albuterol - atroVENT (ipratropium) (3:1) (2.5 mg - 0.5 mg) 3 ml Route: Nebulizer; aa5 20:00 Follow up: Response: No adverse reaction as6 11:00 Drug: Insulin Regular Human 5 units {Co-Signature: dw3 (Nikki Bowers RN).} Route: aa5 IVP; Site: Other; 20:00 Follow up: Response: No adverse reaction as6 11:17 Not Given (Physician Discretion): D50W 25 ml IVP once; (0.5 amp) aa5 11:49 Drug: Benadryl (diphenhydrAMINE) 25 mg Route: IVP; Site: Other; aa5 19:59 Follow up: Response: No adverse reaction as6 12:49 Not Given (PT AT [facility]): hydrALAZINE 20 mg IVP once bp 13:00 Drug: hydrALAZINE 20 mg {Note: right breast.} Route: IVP; Site: Other; 19:59 Follow up: Response: No adverse reaction as6 Point of Care Testing: Blood Glucose: 10:20 Blood Glucose: 63 mg/dL; aa5 Ranges: Intake: Outcome: 10:06 Decision to Hospitalize by Provider. juan 15:50 Admitted to ER Hold. Please see [facility] for further documentation. dw3 15:50 Condition: stable dw3 15:50 Instructed on the need for admit, Demonstrated understanding of instructions. 20:30 Patient left the ED. as6 Signatures: Luis Sandra MD MD cha Williams, Irene, RN TABATHA Lorelei Newman RN RN aa5 Hollie Tomas RN TABATHA lp1 Debo Interiano, RN RN 3 Mylene Banerjee [facility] Сергей Li MD MD [facility] Yuri Mathis RN RN as6 Nikki Bowers RN RN dw3 Latrell Fiscehr RN bp Nikki Bowers RN dw3 Corrections: (The following items were deleted from the chart) 06:45 05:51 Acuity: JESSICA 3 lp1 lp1 07:50 07:50 Dilaudid (HYDROmorphone) 1 mg IVP in Other aa5 aa5 11:21 10:20 D10 in Water [2 mL/kg] 500 ml IVP in Other aa5 aa5
[2021-10-08] MEDS ORDERED: FUROSEMIDE 20 MG/ 2ML VIAL ONE (10:26)
[2021-10-08] MEDS ORDERED: FUROSEMIDE 40 MG/4 ML VIAL ONE (10:27)
[2021-10-08] MEDS ORDERED: HYDROMORPHONE HCL 0.5 MG/0.5 ML INJ ONE (10:27)
[2021-10-08] MEDS ORDERED: ALBUTEROL 2.5 MG/3 ML NEB SOL ONE (10:27)
[2021-10-08] MEDS ORDERED: INSULIN -REGULAR HUMAN 50 UNIT/0.5 ML ML ONE (10:28)
[2021-10-08] MEDS ORDERED: IPRATROPIUM BROM 0.5MG/2.5ML ONE (10:29)
[2021-10-08] MEDS ORDERED: SOD POLYSTYREN SUL 15 GM/60 ML UCUP ONE (10:29)
[2021-10-08] MEDS ORDERED: D10W 250 ML IV ONE ×3 (10:29→17:18)
--- NOTE | 2021-10-08 11:13 | P.HP ---
Certification for Inpatient Patient admitted to: Observation With expected LOS: <2 Midnights Practitioner: I am a practitioner with admitting privileges, knowledge of patient current condition, hospital course, and medical plan of care. Services: Services provided to patient in accordance with Admission requirements found in Title 42 Section 412.3 of the Code of Federal Regulations Patient History Date of Service: 10/08/21 Reason for admission: Nausea and vomiting History of Present Illness: 40-year-old woman well-known to the hospitalist service with a history of end- stage renal disease on hemodialysis, insulin-dependent diabetes mellitus and gastroparesis presented to the emergency department with a complaint of nausea and vomiting and abdominal pain of 3 days duration. She presented to the emergency department 2 days ago for the nausea and vomiting, patient was given antiemetics and discharged. Her symptoms got worse and therefore presented to the ED again. Blood work showed hyperkalemia with potassium of 6.1. BUN also elevated. Patient is due for dialysis today. She denied missing any dialysis session. She is hospitalized for further management. Allergies zolpidem tartrate [From Ambien] Allergy (Intermediate, Verified 10/17/16 23:08) Itching/Hives/Rash codeine [Codeine] Allergy (Verified 10/17/16 23:08) Hives fluphenazine enanthate [From Prolixin] Allergy (Verified 10/17/16 23:08) ARM NUMBNESS fluphenazine HCl [From Prolixin] Allergy (Verified 10/17/16 23:08) ARM NUMBNESS guaifenesin [From Prolex D] Allergy (Verified 10/17/16 23:08) Hives lisinopril Allergy (Verified 04/21/17 10:26) Anaphylaxis morphine Allergy (Verified 10/01/20 10:03) Itching Penicillins Allergy (Verified 10/17/16 23:08) Hives phenylephrine HCl [From Prolex D] Allergy (Verified 10/17/16 23:08) Hives nitrofurantoin Adverse Reaction (Verified 08/07/17 23:41) liver failure Home Medications: Sertraline [Zoloft*] 50 mg PO DAILY 03/05/20 Pantoprazole Sodium [Protonix] 1 tab PO DAILY 30 Days #30 tablet. 03/06/20 Metoprolol Succinate 25 mg PO DAILY 07/22/20 Pravastatin Sodium 1 tab PO DAILY 07/22/20 Doxazosin [Cardura*] 4 mg PO BEDTIME 09/30/20 Furosemide [Lasix*] 40 mg PO BID 09/30/20 Ondansetron [Zofran (Odt)*] 4 mg PO Q8H PRN 14 Days #30 tab 10/01/20 Nepro Shake [Nepro*] 237 ml PO TID #60 can 11/07/20 Cholecalciferol (Vitamin D3) [Vitamin D 5,000 IU Cap*] 5,000 unit PO DAILY #30 cap 01/16/21 Heparin [Heparin 1,000 units/mL *] 6,000 unit IV EVERY HD PRN vial 07/31/21 Metoclopramide [Reglan*] 5 ml PO TID PRN 07/31/21 Buspirone HCl [Buspar] 1 tab PO BID 08/22/21 Divalproex Sodium [Depakote] 1 tab PO BID 08/22/21 Quetiapine Fumarate [Seroquel] 25 mg PO BEDTIME 08/22/21 Ascorbate Calcium [Vitamin C] 500 mg PO BID 09/08/21 clonazePAM [Klonopin] 0.5 mg PO DAILY 09/08/21 Calcitrol [Rocaltrol*] 0.5 mcg PO DAILY #30 cap 09/10/21 Diphenhydramine [Benadryl Tab/Cap] 25 mg PO Q6HP PRN #30 tab 09/10/21 Docusate [Colace Cap*] 100 mg PO BID #60 cap 09/10/21 Epoetin [Retacrit] 10,000 unit SQ M,W,F vial 09/10/21 Mannitol 25% [Mannitol*] 12.5 gm IV EVERY HD PRN vial 09/10/21 Sevelamer Carbonate [Renvela*] 800 mg PO TIDWM #90 tablet 09/10/21 - Past Medical/Surgical History Diabetic: Yes -: DM Type 2 -: Seizure disorder -: ESRD on HD -: DM Gastroparesis -: DM Neuropathy -: Insomnia -: Obesity -: JAYLA -: Hypertension -: Post traumatic stress disorder -: Schizoaffective disorder -: CHF, diastolic -: I/D of the right elbow -: 2 previous C-sections -: Tubal ligation Psychosocial/ Personal History: She is , she has 2 children, she does not work. She lives with her boyfriend and daughter. - Family History Mother -: Hypertension, Diabetes, Cancer, Other (see notes) Notes: hypothyroid, asthma, breast cancer Father -: Diabetes, Cancer Notes: - stomach/ lung/ prostate cancer, diabetes - Social History Alcohol use: No CD- Drugs: No Caffeine use: No Review of Systems Other: She denies any fever, denies any diarrhea, she denies any shortness of breath. She reports itching. Except as documented, all other systems reviewed and negative. Physical Examination - Physical Exam General: Alert, In no apparent distress, Oriented x3 HEENT: Mucous membr. moist/pink, Sclerae nonicteric Neck: Supple, JVD not distended Respiratory: Clear to auscultation bilaterally, Normal air movement Cardiovascular: No edema, Regular rate/rhythm, Normal S1 S2 Gastrointestinal: Normal bowel sounds, Soft and benign, Non-distended, No tenderness Musculoskeletal: No swelling, No tenderness Integumentary: No erythema, No cyanosis Neurological: Normal speech, Other (No focal motor deficits) Lymphatics: No axilla or inguinal lymphadenopathy - Studies Laboratory Data (last 24 hrs) 10/08/21 08:00: WBC 5.4 D, Hgb 9.8 L, Hct 30.2 L, Plt Count 80 L* D 10/08/21 07:09: Sodium 136, Potassium 6.1 H*, BUN 77 H, Creatinine 9.98 H* D, Glucose 81, Total Bilirubin 0.5, AST 18, ALT 16, Alkaline Phosphatase 57, Lipase 136 Assessment and Plan - Problems (Diagnosis) (1) Nausea and vomiting Current Visit: Yes Status: Acute (2) Abdominal pain Onset Date: 01/11/17 Current Visit: No Status: Acute Qualifiers: Abdominal location: lower abdomen, unspecified Qualified Code(s): R10.30 - Lower abdominal pain, unspecified (3) Gastroparesis Current Visit: No Status: Acute (4) Hyperkalemia Current Visit: No Status: Acute (5) End stage renal disease on dialysis Current Visit: No Status: Chronic (6) History of peptic ulcer disease Current Visit: No Status: Chronic - Plan Place patient under observation. Nephrology consulted for hemodialysis. Patient's seen undergoing hemodialysis. Antiemetics Reglan PPI, sucralfate. Resume home insulin regimen. Insulin sliding scale for glucose management Monitor BMP to follow hyperkalemia. Advance diet as tolerated. - Advance Directives Does patient have a Living Will: No Does patient have a Durable POA for Healthcare: No
[2021-10-08] MEDS ORDERED: HYDRALAZINE HCL 20 MG/ML VIAL ONE (12:58)
[2021-10-08] MEDS ORDERED: ACETAMINOPHEN 500 MG TAB PO PRN (16:59)
[2021-10-08] MEDS: INSULIN -REGULAR HUMAN 50 UNIT/0.5 ML ML SQ SCH ×2 (17:00→21:00)
[2021-10-08] MEDS: HEPARIN 5000 UNIT/ML 1 ML VIAL SQ SCH (17:00)
[2021-10-08] MEDS: ONDANSETRON 4 MG/2 ML VIAL IV PRN (17:05)
[2021-10-08] MEDS: DIPHENHYDRAMINE 25 MG TAB/CAP PO PRN ×2 (17:10→23:49)
[2021-10-08] MEDS ORDERED: D10W 250 ML BAG IV PRN (17:13)
[2021-10-08] MEDS ORDERED: DIPHENHYDRAMINE 25 MG TAB/CAP ONE (17:19)
[2021-10-08] MEDS ORDERED: GLUCAGON 1 MG/VIAL IM PRN (18:00)
[2021-10-08] MEDS ORDERED: D50W 25 GM/50 ML SYRINGE IV PRN (18:00)
[2021-10-08] MEDS: HYDROMORPHONE HCL 1 MG/ML INJ IV PRN (20:06)
--- NOTE | 2021-10-08 21:50 | P.CNS ---
Date of Consult: 10/08/21 Reason for Consult: ESRD/ Hyperkalemia Requesting Physician: zabrina hollis Chief Complaint: Nausea and vomiting History of Present Illness: 40-year-old woman well-known to the hospitalist service with a history of end- stage renal disease on hemodialysis, insulin-dependent diabetes mellitus and gastroparesis presented to the emergency department with a complaint of nausea and vomiting and abdominal pain of 3 days duration. She presented to the emergency department 2 days ago for the nausea and vomiting, patient was given antiemetics and discharged. Her symptoms got worse and therefore presented to the ED again. Blood work showed hyperkalemia with potassium of 6.1. BUN also elevated. Patient is due for dialysis today. She denied missing any dialysis session. She is hospitalized for further management. 06:30 This 40 yrs old Female presents to ER via Wheelchair with complaints of mh7 Abdominal Pain. 06:30 The patient presents with abdominal pain in the upper abdomen. Onset: The mh7 symptoms/episode began/occurred 3 day(s) ago. The symptoms do not radiate. Associated signs and symptoms: Pertinent positives: nausea and vomiting, diarrhea, Pertinent negatives: anorexia, blood in stools, chest pain, constipation, dysuria, fever, headache, hematuria, palpitations, shortness of breath, vaginal discharge, vomiting blood. The symptoms are described as intermittent, vague, waxing/waning. Modifying factors: The symptoms are alleviated by nothing, the symptoms are aggravated by nothing. Severity of pain: At its worst the pain was moderate yesterday, in the emergency department the pain is unchanged. The patient has been recently seen at the [facility] Emergency Department, this week. Allergies zolpidem tartrate [From Ambien] Allergy (Intermediate, Verified 10/17/16 23:08) Itching/Hives/Rash codeine [Codeine] Allergy (Verified 10/17/16 23:08) Hives fluphenazine enanthate [From Prolixin] Allergy (Verified 10/17/16 23:08) ARM NUMBNESS fluphenazine HCl [From Prolixin] Allergy (Verified 10/17/16 23:08) ARM NUMBNESS guaifenesin [From Prolex D] Allergy (Verified 10/17/16 23:08) Hives lisinopril Allergy (Verified 04/21/17 10:26) Anaphylaxis morphine Allergy (Verified 10/01/20 10:03) Itching Penicillins Allergy (Verified 10/17/16 23:08) Hives phenylephrine HCl [From Prolex D] Allergy (Verified 10/17/16 23:08) Hives nitrofurantoin Adverse Reaction (Verified 08/07/17 23:41) liver failure Home medications list reviewed: Yes Home Medications: Sertraline [Zoloft*] 50 mg PO DAILY 03/05/20 Pantoprazole Sodium [Protonix] 1 tab PO DAILY 30 Days #30 tablet. 03/06/20 Metoprolol Succinate 25 mg PO DAILY 07/22/20 Pravastatin Sodium 1 tab PO DAILY 07/22/20 Doxazosin [Cardura*] 4 mg PO BEDTIME 09/30/20 Furosemide [Lasix*] 40 mg PO BID 09/30/20 Ondansetron [Zofran (Odt)*] 4 mg PO Q8H PRN 14 Days #30 tab 10/01/20 Nepro Shake [Nepro*] 237 ml PO TID #60 can 11/07/20 Cholecalciferol (Vitamin D3) [Vitamin D 5,000 IU Cap*] 5,000 unit PO DAILY #30 cap 01/16/21 Heparin [Heparin 1,000 units/mL *] 6,000 unit IV EVERY HD PRN vial 07/31/21 Metoclopramide [Reglan*] 5 ml PO TID PRN 07/31/21 Buspirone HCl [Buspar] 1 tab PO BID 08/22/21 Divalproex Sodium [Depakote] 1 tab PO BID 08/22/21 Quetiapine Fumarate [Seroquel] 25 mg PO BEDTIME 08/22/21 Ascorbate Calcium [Vitamin C] 500 mg PO BID 09/08/21 clonazePAM [Klonopin] 0.5 mg PO DAILY 09/08/21 Calcitrol [Rocaltrol*] 0.5 mcg PO DAILY #30 cap 09/10/21 Diphenhydramine [Benadryl Tab/Cap] 25 mg PO Q6HP PRN #30 tab 09/10/21 Docusate [Colace Cap*] 100 mg PO BID #60 cap 09/10/21 Epoetin [Retacrit] 10,000 unit SQ M,W,F vial 09/10/21 Mannitol 25% [Mannitol*] 12.5 gm IV EVERY HD PRN vial 09/10/21 Sevelamer Carbonate [Renvela*] 800 mg PO TIDWM #90 tablet 09/10/21 - Past Medical/Surgical History Diabetic: Yes -: DM Type 2 -: Seizure disorder -: ESRD on HD -: DM Gastroparesis -: DM Neuropathy -: Insomnia -: Obesity -: JAYLA -: Hypertension -: Post traumatic stress disorder -: Schizoaffective disorder -: CHF, diastolic -: I/D of the right elbow -: 2 previous C-sections -: Tubal ligation -: Right groin "aneurysm" Psychosocial/ Personal History: She is , she has 2 children, she does not work. She lives with her boyfriend and daughter. - Family History Mother Medical History: Hypertension, Diabetes, Cancer, Other (see notes) Notes: hypothyroid, asthma, breast cancer Father Medical History: Diabetes, Cancer Notes: - stomach/ lung/ prostate cancer, diabetes - Social History Smoking Status: Current every day smoker Alcohol use: No CD- Drugs: No Caffeine use: No Review of Systems 10-point ROS is otherwise unremarkable General: Weakness, Malaise Respiratory: SOB with Excertion Neurological: Weakness Physical Examination Temp Pulse Resp BP Pulse Ox 97.6 F 87 18 195/89 H 100 10/08/21 15:50 10/08/21 15:50 10/08/21 15:50 10/08/21 15:50 10/08/21 15:50 General: Oriented x3, Cooperative HEENT: Atraumatic Neck: Supple Respiratory: Clear to auscultation bilaterally Cardiovascular: Regular rate/rhythm, Edema Gastrointestinal: Non-distended, No guarding Musculoskeletal: No clubbing, No contractures Integumentary: No rashes, No cyanosis Neurological: Normal speech Laboratory Data (last 24 hrs) 10/08/21 08:00: WBC 5.4 D, Hgb 9.8 L, Hct 30.2 L, Plt Count 80 L* D 10/08/21 07:09: Sodium 136, Potassium 6.1 H*, BUN 77 H, Creatinine 9.98 H* D, Glucose 81, Total Bilirubin 0.5, AST 18, ALT 16, Alkaline Phosphatase 57, Lipase 136 Conclusions/Impression: ESRD -Acute HD ordered Hyperkalemia -Acute HD ordered -Renal diet HTN with CKD/ CHF -Restart Metoprolol -Start Losartan BID Diastolic CHF, A/C -Acute HD with UF -Renal Diet -Restart Metoprolol DM II with CKD, Polyneuropathy and Gastroparesis -RISS Anemia in CKD -Retacrit X1 CKD MBD -Start Vitamin D Case discussed with Dr. Sandra Thank you kindly for the consultation
[2021-10-08] MEDS ORDERED: EPOETIN ALFA 10,000 UNIT/ML VIAL SQ ONE (22:02)
[2021-10-08] MEDS ORDERED: METOCLOPRAMIDE 10 MG/2mL INJ IV SCH (23:00)
[2021-10-08] MEDS: METOPROLOL XL 25 MG TAB PO SCH (23:48)
[2021-10-09] MEDS: HEPARIN 5000 UNIT/ML 1 ML VIAL SQ SCH ×3 (00:25→17:37)
[2021-10-09] MEDS: HYDROMORPHONE HCL 1 MG/ML INJ IV PRN ×2 (02:50→10:29)
[2021-10-09] MEDS: LABETALOL 20 MG/4ML SYRINGE IV PRN ×4 (02:53→20:28)
[2021-10-09 06:27] LABS: Absolute Lymphocytes (CBC) 0.7 K/uL (0.7-4.9); Hematocrit 23.6 % (36.0-45.0); Lymphocytes % 30.2 % (15.3-44.8); MPV 10.9 fL (7.6-11.3); RBC Red Blood Cell Count 2.65 M/uL (3.86-4.86)
[2021-10-09 06:46] LABS: Phosphorus 7.7 mg/dL (2.5-4.9); Potassium 4.6 mmol/L (3.5-5.1)
[2021-10-09] MEDS: INSULIN -REGULAR HUMAN 50 UNIT/0.5 ML ML SQ SCH ×4 (07:30→21:00)
[2021-10-09] MEDS: VITAMIN D 5,000 UNIT CAP PO SCH (08:38)
[2021-10-09] MEDS: DOCUSATE NA 100 MG CAP PO SCH ×2 (08:38→20:15)
[2021-10-09] MEDS: NEPRO SHAKE 237 ML CAN PO SCH ×3 (08:39→20:16)
[2021-10-09] MEDS: LOSARTAN POTASSIUM 50 MG TABLET PO SCH ×2 (08:39→20:17)
[2021-10-09] MEDS: CALCITROL 0.25 MCG CAP PO SCH (08:42)
[2021-10-09] MEDS ORDERED: EPOETIN ALFA 10,000 UNIT/ML VIAL SQ ONE (09:00)
[2021-10-09] MEDS ORDERED: METOCLOPRAMIDE 10 MG/2mL INJ IV SCH (11:00)
[2021-10-09] MEDS: DIPHENHYDRAMINE 25 MG TAB/CAP PO PRN ×2 (11:31→20:15)
[2021-10-09] MEDS ORDERED: METOPROLOL XL 25 MG TAB PO ONE (13:44)
[2021-10-09] MEDS: ONDANSETRON 4 MG/2 ML VIAL IV PRN ×2 (16:07→20:15)
--- NOTE | 2021-10-09 16:12 | P.PN ---
Subjective Date of Service: 10/09/21 Chief Complaint: Nausea and vomiting Patient complaining of abdominal pain and nausea. She has not been able to tolerate her diet. She is hypoglycemic today. Physical Examination - Vital Signs Temperature: 97.4 F Blood Pressure: 178/79 Pulse: 67 Respirations: 18 Pulse Ox (%): 99 Assessment And Plan - Current Problems (Diagnosis) (1) Nausea and vomiting Current Visit: Yes Status: Acute (2) Abdominal pain Onset Date: 01/11/17 Current Visit: No Status: Acute Qualifiers: Abdominal location: lower abdomen, unspecified Qualified Code(s): R10.30 - Lower abdominal pain, unspecified (3) Gastroparesis Current Visit: No Status: Acute (4) Hyperkalemia Current Visit: No Status: Acute (5) End stage renal disease on dialysis Current Visit: No Status: Chronic (6) History of peptic ulcer disease Current Visit: No Status: Chronic (7) Hypertension Onset Date: 10/19/16 Current Visit: No Status: Chronic Qualifiers: Hypertension type: primary hypertension Qualified Code(s): I10 - Essential (primary) hypertension (8) Hypoglycemia Current Visit: Yes Status: Acute - Plan Physical Exam General: Alert, In no apparent distress, Oriented x3 HEENT: Mucous membr. moist/pink, Sclerae nonicteric Respiratory: Clear to auscultation bilaterally, Normal air movement Cardiovascular: No edema, Regular rate/rhythm, Normal S1 S2 Gastrointestinal: Normal bowel sounds, Soft and benign, Non-distended, mild epigastric tenderness. Musculoskeletal: No swelling, No tenderness Integumentary: No erythema, No cyanosis Neurological: Normal speech, Other (No focal motor deficits) Continue supportive measures-Reglan IV, pain medications as needed. Continue sucralfate and PPI Advance diet as tolerated. Hold long-acting insulin Insulin sliding scale Status post hemodialysis yesterday. Antiemetics Monitor BMP. Continue home antihypertensives Labetalol as needed for BP spikes.
[2021-10-09] MEDS ORDERED: HYDRALAZINE HCL 20 MG/ML VIAL IV ONE (17:55)
[2021-10-09] MEDS ORDERED: DOXAZOSIN 2 MG TAB ONE (18:06)
[2021-10-09] MEDS ORDERED: cloNIDine HCL 0.1 MG TAB PO ONE (18:50)
[2021-10-09] MEDS ORDERED: HYDROMORPHONE HCL 1 MG/ML INJ IV ONE (18:52)
[2021-10-09] MEDS ORDERED: EPOETIN ALFA 10,000 UNIT/ML VIAL SQ SCH (20:00)
[2021-10-09] MEDS: METOPROLOL XL 25 MG TAB PO SCH ×3 (20:15→21:00)
[2021-10-09] MEDS ORDERED: NA CHLORIDE 0.9% 1,000 ML IV PRN (20:36)
[2021-10-09] MEDS ORDERED: MANNITOL 25% 12.5 GM/50 ML VIAL IV PRN (20:36)
--- NOTE | 2021-10-09 20:42 | P.PN ---
Date of Service: 10/09/21 Vital Signs Temp Pulse Resp BP Pulse Ox 97.4 F 80 18 190/90 H 96 10/09/21 16:16 10/09/21 20:28 10/09/21 19:30 10/09/21 20:28 10/09/21 19:30 Medications Acetaminophen (Acetaminophen 500 Mg Tab) 500 mg PO Q4HP PRN PRN Reason: TEMP > 100.4' F Calcitriol (Calcitrol 0.25 Mcg Cap) 0.5 mcg PO DAILY [facility] Last Admin: 10/09/21 08:42 Dose: 0.5 mcg Documented by: Cholecalciferol (Vitamin D 5,000 Unit Cap) 5,000 unit PO DAILY [facility] Last Admin: 10/09/21 08:38 Dose: 5,000 unit Documented by: Dextrose (D10w 250 Ml Bag) 125 ml IV PRN PRN PRN Reason: HYPOGLYCEMIA PROTOCOL Last Admin: 10/08/21 17:05 Dose: 125 ml Documented by: Diphenhydramine HCl (Diphenhydramine 25 Mg Tab/Cap) 25 mg PO Q6H PRN PRN Reason: ITCHING Last Admin: 10/09/21 20:15 Dose: 25 mg Documented by: Docusate Sodium (Docusate Na 100 Mg Cap) 100 mg PO BID [facility] Last Admin: 10/09/21 20:15 Dose: 100 mg Documented by: Doxazosin Mesylate (Doxazosin 4 Mg Tab) 4 mg PO BEDTIME [facility] Last Admin: 10/09/21 18:07 Dose: 4 mg Documented by: Enteral Nutritional Formula (Nepro Shake 237 Ml Can) 237 ml PO TID [facility] Last Admin: 10/09/21 20:16 Dose: 237 ml Documented by: Fentanyl Citrate (Fentanyl Citr 100 Mcg/2 Ml) 25 mcg IV Q4H PRN PRN Reason: Pain scale 8-10 (Severe) Glucagon (Glucagon 1 Mg/Vial) 1 mg IM 1X PRN PRN Reason: HYPOGLYCEMIA Heparin Sodium (Porcine) (Heparin 5000 Unit/Ml 1 Ml Vial) 5,000 unit SQ Q8HR [facility] Last Admin: 10/09/21 17:37 Dose: 5,000 unit Documented by: Heparin Sodium (Porcine) (Heparin 1,000 Unit/Ml Vial) 6,000 unit IJ EVERY HD PRN PRN Reason: AFTER EACH Sodium Chloride (Ns 1000 Ml Ivbag) 1,000 mls @ 0 mls/hr IV .Q0M PRN PRN Reason: Priming and BP support at HD Stop: 10/09/21 23:59 Albumin Human (Albumin 25%) 50 mls @ 100 mls/hr IV EVERY HD [facility] Insulin Human Regular (Insulin -Regular Human 50 Unit/0.5 Ml Ml) 0 unit SQ ACHS NOHEMI; Protocol Last Admin: 10/09/21 16:30 Dose: Not Given Documented by: Labetalol HCl (Labetalol 20 Mg/4ml Syringe) 10 mg IV Q4H PRN PRN Reason: Titrate to SBP (MUST DEFINE) Last Admin: 10/09/21 20:28 Dose: 10 mg Documented by: Losartan Potassium (Losartan Potassium 50 Mg Tablet) 50 mg PO BID [facility] Last Admin: 10/09/21 20:17 Dose: 50 mg Documented by: Mannitol (Mannitol 25% 12.5 Gm/50 Ml Vial) 12.5 gm IV EVERY HD PRN PRN Reason: Titrate to SBP (MUST DEFINE) Metoprolol Succinate (Metoprolol Xl 25 Mg Tab) 25 mg PO BEDTIME [facility] Last Admin: 10/09/21 20:17 Dose: 25 mg Documented by: Ondansetron HCl (Ondansetron 4 Mg/2 Ml Vial) 4 mg IV Q6HP PRN PRN Reason: NAUSEA / VOMITING Last Admin: 10/09/21 20:15 Dose: 4 mg Documented by: Sodium Chloride (Flush Normal Saline 10 Ml) 10 ml IV BID [facility] Last Admin: 10/09/21 20:17 Dose: 10 ml Documented by: Assessment/ Plan: Nephrology No dyspnea No chest pain Muscle cramping No acute events overnight Vitals, medications, blood work and imaging reviewed in the chart. General: Oriented x3, Cooperative HEENT: Atraumatic Neck: Supple Respiratory: Clear to auscultation bilaterally Cardiovascular: Regular rate/rhythm, Edema Gastrointestinal: Non-distended, No guarding Musculoskeletal: No clubbing, No contractures Integumentary: No rashes, No cyanosis Neurological: Normal speech Laboratory Data (last 24 hrs) 10/08/21 08:00: WBC 5.4 D, Hgb 9.8 L, Hct 30.2 L, Plt Count 80 L* D 10/08/21 07:09: Sodium 136, Potassium 6.1 H*, BUN 77 H, Creatinine 9.98 H* D, Glucose 81, Total Bilirubin 0.5, AST 18, ALT 16, Alkaline Phosphatase 57, Lipase 136 Conclusions/Impression: ESRD -HD TIW Hyperkalemia -HD TIW -Renal diet HTN with CKD/ CHF -Increase Metoprolol BID -Agree with Doxazosin -Continue Losartan BID Diastolic CHF, A/C -HD with UF -Renal Diet -Increase Metoprolol BID DM II with CKD, Polyneuropathy and Gastroparesis -RISS Anemia in CKD -Retacrit TIW CKD MBD -Continue Vitamin D
[2021-10-09] MEDS ORDERED: DOXAZOSIN 4 MG TAB PO SCH (21:00)
[2021-10-09] MEDS ORDERED: ALBUMIN HUMAN 25% 50 ML IV SCH (21:00)
[2021-10-10] MEDS: FENTANYL CITR 100 MCG/2 ML IV PRN ×2 (00:11→09:30)
[2021-10-10] MEDS: HEPARIN 5000 UNIT/ML 1 ML VIAL SQ SCH ×3 (00:14→17:29)
[2021-10-10] MEDS: ONDANSETRON 4 MG/2 ML VIAL IV PRN (01:15)
[2021-10-10 03:21] VITALS: BMI 28.9
[2021-10-10] MEDS: LABETALOL 20 MG/4ML SYRINGE IV PRN (05:14)
[2021-10-10] MEDS: INSULIN -REGULAR HUMAN 50 UNIT/0.5 ML ML SQ SCH ×3 (07:30→16:30)
[2021-10-10] MEDS: METOPROLOL XL 25 MG TAB PO SCH (08:07)
[2021-10-10] MEDS ORDERED: HYDRALAZINE HCL 20 MG/ML VIAL IV PRN (08:42)
[2021-10-10 08:52] VITALS: O2SAT 94
[2021-10-10] MEDS: LOSARTAN POTASSIUM 50 MG TABLET PO SCH (08:56)
[2021-10-10] MEDS ORDERED: METOPROLOL XL 25 MG TAB PO SCH (09:00)
[2021-10-10] MEDS: CALCITROL 0.25 MCG CAP PO SCH (09:00)
[2021-10-10] MEDS: VITAMIN D 5,000 UNIT CAP PO SCH (09:30)
[2021-10-10] MEDS: DOCUSATE NA 100 MG CAP PO SCH (09:30)
[2021-10-10] MEDS: NEPRO SHAKE 237 ML CAN PO SCH ×2 (09:32→15:22)
--- NOTE | 2021-10-10 12:41 | P.DS ---
Admission Date: 10/08/21 Discharge Date: 10/10/21 Disposition: ROUTINE DISCHARGE Discharge Condition: FAIR Reason for Admission: Nausea and vomiting - Problems (1) Nausea and vomiting Current Visit: Yes Status: Acute (2) Abdominal pain Onset Date: 01/11/17 Current Visit: No Status: Acute Qualifiers: Abdominal location: lower abdomen, unspecified Qualified Code(s): R10.30 - Lower abdominal pain, unspecified (3) Gastroparesis Current Visit: No Status: Acute (4) Hyperkalemia Current Visit: No Status: Acute (5) End stage renal disease on dialysis Current Visit: No Status: Chronic (6) History of peptic ulcer disease Current Visit: No Status: Chronic (7) Hypertension Onset Date: 10/19/16 Current Visit: No Status: Chronic Qualifiers: Hypertension type: primary hypertension Qualified Code(s): I10 - Essential (primary) hypertension (8) Hypoglycemia Current Visit: Yes Status: Acute Brief History of Present Illness: 40-year-old woman well-known to the hospitalist service with a history of end- stage renal disease on hemodialysis, insulin-dependent diabetes mellitus and gastroparesis presented to the emergency department with a complaint of nausea and vomiting and abdominal pain of 3 days duration. She presented to the emergency department 2 days ago for the nausea and vomiting, patient was given antiemetics and discharged. Her symptoms got worse and therefore presented to the ED again. Blood work showed hyperkalemia with potassium of 6.1. BUN also elevated. Patient was due for dialysis. She denied missing any dialysis session. She was hospitalized for further management. Hospital Course: Patient admitted to the medical floor, seen by nephrology. He underwent hemodialysis. Hyperkalemia was corrected. Patient had nausea and vomiting, episodes of hypoglycemia. She was on Reglan as needed. She elected to repeat her blood and blood sugar readings improved. Blood pressure was managed with her home antihypertensives. Toprol-XL was increased from 25 mg daily to 25 mg twice daily. Blood pressure also treated with losartan and doxazosin. Vital Signs/Physical Exam: Temp Pulse Resp BP Pulse Ox 97.8 F 67 16 202/82 H 100 10/10/21 08:00 10/10/21 08:07 10/10/21 08:00 10/10/21 08:07 10/10/21 08:00 General: Alert, In no apparent distress, Oriented x3 HEENT: Mucous membr. moist/pink Neck: JVD not distended Respiratory: Clear to auscultation bilaterally, Normal air movement Cardiovascular: No edema, Regular rate/rhythm, Normal S1 S2 Gastrointestinal: Soft and benign, Non-distended Musculoskeletal: No tenderness Neurological: Normal strength at 5/5 x4 extr Laboratory Data at Discharge: WBC 2.3 K/uL (4.3-10.9) L D 10/09/21 06:13 Hgb 7.7 g/dL (12.0-15.0) L 10/09/21 06:13 Hct 23.6 % (36.0-45.0) L D 10/09/21 06:13 Plt Count 68 K/uL (152-406) L* 10/09/21 06:13 Sodium 137 mmol/L (136-145) 10/09/21 06:13 Potassium 4.6 mmol/L (3.5-5.1) 10/09/21 06:13 BUN 41 mg/dL (7-18) H D 10/09/21 06:13 Creatinine 6.27 mg/dL (0.55-1.3) H* D 10/09/21 06:13 Glucose 69 mg/dL (74-106) L 10/09/21 06:13 Phosphorus 7.7 mg/dL (2.5-4.9) H 10/09/21 06:13 Magnesium 2.0 mg/dL (1.8-2.4) 10/09/21 06:13 Total Bilirubin 0.5 mg/dL (0.2-1.0) 10/08/21 07:09 AST 18 U/L (15-37) 10/08/21 07:09 ALT 16 U/L (12-78) 10/08/21 07:09 Alkaline Phosphatase 57 U/L (45-117) 10/08/21 07:09 Lipase 136 U/L (73-393) 10/08/21 07:09 Home Medications: Sertraline [Zoloft*] 50 mg PO DAILY 03/05/20 Pantoprazole Sodium [Protonix] 1 tab PO DAILY 30 Days #30 tablet. 03/06/20 Pravastatin Sodium 1 tab PO DAILY 07/22/20 Doxazosin [Cardura*] 4 mg PO BEDTIME 09/30/20 Furosemide [Lasix*] 40 mg PO BID 09/30/20 Ondansetron [Zofran (Odt)*] 4 mg PO Q8H PRN 14 Days #30 tab 10/01/20 Nepro Shake [Nepro*] 237 ml PO TID #60 can 11/07/20 Cholecalciferol (Vitamin D3) [Vitamin D 5,000 IU Cap*] 5,000 unit PO DAILY #30 cap 01/16/21 Metoclopramide [Reglan*] 5 ml PO TID PRN 07/31/21 Buspirone HCl [Buspar] 1 tab PO BID 08/22/21 Divalproex Sodium [Depakote] 1 tab PO BID 08/22/21 Ascorbate Calcium [Vitamin C] 500 mg PO BID 09/08/21 clonazePAM [Klonopin] 0.5 mg PO DAILY 09/08/21 Calcitrol [Rocaltrol*] 0.5 mcg PO DAILY #30 cap 09/10/21 Diphenhydramine [Benadryl*] 25 mg PO Q6HP PRN #30 tab 09/10/21 Quetiapine Fumarate [Seroquel] 100 mg PO BEDTIME 10/09/21 Docusate [Colace Cap*] 100 mg PO BID #60 cap 10/10/21 Epoetin [Retacrit] 10,000 unit SQ M,W,F vial 10/10/21 Heparin [Heparin 1,000 units/mL *] 6,000 unit IV EVERY HD PRN vial 10/10/21 Losartan Potassium [Cozaar*] 50 mg PO BID #60 tablet 10/10/21 Mannitol 25% [Mannitol*] 12.5 gm IV EVERY HD PRN vial 10/10/21 Metoprolol Succinate [Toprol Xl*] 25 mg PO BID #60 tab 10/10/21 New Medications: Docusate [Colace Cap*] 100 mg PO BID #60 cap Losartan Potassium [Cozaar*] 50 mg PO BID #60 tablet Metoprolol Succinate [Toprol Xl*] 25 mg PO BID #60 tab Diet: Renal Activity: Ad monique Followup: Jose Miguel Morin DO [Primary Care Provider] - Time spent managing pt's care (in minutes): 36
[2021-10-10 16:40] VITALS: BP 130/75
[2021-10-10 16:52] VITALS: TEMP 97.7
[2021-10-10] MEDS ORDERED: EPOETIN ALFA 10,000 UNIT/ML VIAL SQ SCH ×2 (17:00→17:30)
--- NOTE | 2021-10-11 09:43 | P.PN ---
Date of Service: 10/10/21 Vital Signs Temp Pulse Resp BP Pulse Ox 97.7 F 76 16 130/75 99 10/10/21 16:00 10/10/21 16:00 10/10/21 16:00 10/10/21 16:39 10/10/21 16:00 Assessment/ Plan: Nephrology No dyspnea No chest pain Persistent nausea No acute events overnight Vitals, medications, blood work and imaging reviewed in the chart. General: Oriented x3, Cooperative HEENT: Atraumatic Neck: Supple Respiratory: Clear to auscultation bilaterally Cardiovascular: Regular rate/rhythm, Edema Gastrointestinal: Non-distended, No guarding Musculoskeletal: No clubbing, No contractures Integumentary: No rashes, No cyanosis Neurological: Normal speech Laboratory Data (last 24 hrs) 10/08/21 08:00: WBC 5.4 D, Hgb 9.8 L, Hct 30.2 L, Plt Count 80 L* D 10/08/21 07:09: Sodium 136, Potassium 6.1 H*, BUN 77 H, Creatinine 9.98 H* D, Glucose 81, Total Bilirubin 0.5, AST 18, ALT 16, Alkaline Phosphatase 57, Lipase 136 Conclusions/Impression: ESRD -HD TIW -Acute HD today Hyperkalemia -HD TIW -Renal diet HTN with CKD/ CHF -Continue Metoprolol BID -Continue Doxazosin -Continue Losartan BID Diastolic CHF, A/C -HD with UF -Renal Diet -Continue Metoprolol BID DM II with CKD, Polyneuropathy and Gastroparesis -RISS -Reglan prn Anemia in CKD -Retacrit TIW CKD MBD -Continue Vitamin D
== END 2021-10-10 17:57 | disposition home or self-care (01) ==
LOC: ER 05:08 → ERHOLD 11:08 → 2ND 19:16
PROVIDERS: ADMIT Internal Medicine; ATTEND Internal Medicine
DX: E87.5 Hyperkalemia (principal); E11.22 Type 2 diabetes mellitus with diabetic chronic kidney disease; I13.2 Hypertensive heart and chronic kidney disease with heart failure and with stage 5 chronic kidney disease, or end stage renal disease; I50.33 Acute on chronic diastolic (congestive) heart failure; N18.6 End stage renal disease; Z99.2 Dependence on renal dialysis; D63.1 Anemia in chronic kidney disease; E11.649 Type 2 diabetes mellitus with hypoglycemia without coma; E11.43 Type 2 diabetes mellitus with diabetic autonomic (poly)neuropathy; K31.84 Gastroparesis; E11.40 Type 2 diabetes mellitus with diabetic neuropathy, unspecified; R11.2 Nausea with vomiting, unspecified; R10.30 Lower abdominal pain, unspecified; G47.33 Obstructive sleep apnea (adult) (pediatric); G40.909 Epilepsy, unspecified, not intractable, without status epilepticus; G47.00 Insomnia, unspecified; F43.10 Post-traumatic stress disorder, unspecified; F25.9 Schizoaffective disorder, unspecified; E66.9 Obesity, unspecified; Z68.28 Body mass index [BMI] 28.0-28.9, adult; F17.210 Nicotine dependence, cigarettes, uncomplicated; Z98.51 Tubal ligation status; Z20.822 Contact with and (suspected) exposure to COVID-19; Z87.11 Personal history of peptic ulcer disease; Z79.4 Long term (current) use of insulin; Z79.899 Other long term (current) drug therapy; Z88.8 Allergy status to other drugs, medicaments and biological substances; Z88.5 Allergy status to narcotic agent; Z88.0 Allergy status to penicillin; Z82.49 Family history of ischemic heart disease and other diseases of the circulatory system; Z83.3 Family history of diabetes mellitus; Z80.3 Family history of malignant neoplasm of breast; Z80.0 Family history of malignant neoplasm of digestive organs; Z80.1 Family history of malignant neoplasm of trachea, bronchus and lung; Z80.42 Family history of malignant neoplasm of prostate
CPT/HCPCS: 93005; 85025 ×2; 80048; 36415; 83735; 84100; 82947 ×14; 83690; 80053; 90935 ×2; 94640; 94760 ×5; 96375; 96374; 99285; U0003; J0360 ×4; J1610; J1940 ×2; J2765 ×3; J1200 ×2; J1815; J1644 ×7; J3010 ×2; J1170 ×6; J2250 ×2; G0378 ×5; J2405 ×6; J3490

== ENCOUNTER 2021-10-16 21:11 | Emergency (ER) | payer OTHER ==
--- OUTSIDE RECORDS SUMMARY | 2021-10-16 21:29 | XMS REPORT | Continuity of Care Document ---
:1980 Author Organization [facility] t Address [address] [place] [address] Care Team Providers Name Role Phone Vivien [...] Policy Number Effective Date Expiration Date S [facility] [id number] 2021 (MEDICARE 00:00:00 REPLACEMENT HMO) Advance Directives Directive Decision Effective Termination Comments Source Date Date Healthcare Agents on N/A [facility]NameRelations[facility] Agent Medical RelationshipCommunicationKaleida Health FoundSibling3 - First Alternate Agent (Medical Power of Alumni Coordinator) Problems Condition Condition Condition Status Onset Resolution Last Treating Co mments Source Name Details Category Date Date Treatment Clinician Date AVF AVF Disease Active Univers (arteriove (arteriove 9 it y of nous nous 00:00: [place] fistula) fistula) 00 Medica l Branch End [...] Vin GASTROPARE 00 HELENA/IBS-D /ANEMIA Active 01/03/2021 [facility] NEW Diagnosis Active 2020-12-24 Mem oria PATIENT GI 4-26 10:39:00 l CONSULT NEW 00:00: Vin REFRACTORY PATIENT GI 00 GASTRO CONSULT REFRACTORY GASTRO Active 10/14/2020 [facility] Malfunctio Malfunctio Disease Active Overview : Univers n of n of 6-03 Formattin ity of arterioven arterioven 00:00: g of this [place] ous ous 00 note Medical dialysis dialysis might be Bran ch fistula, fistula, different initial initial from the encounter encounter original. Added automatic ally from request for surgery [id number] Candidiasi Candidiasi Disease Active U nivers s [...] NEW 00:00: Vin EVALUATION 00 Active 07/12/2018 [facility] Pyogenic Pyogenic Disease Active 2017-06 Overview: Un lori granuloma granuloma 0-17 Formattin i ty of of of 00:00: g of this [place] conjunctiv conjunctiv 00 note Me dical a, right a, right might be Bran ch different from the original. Added automatic ally from request for surgery [id number] Right eye Right eye Disease Active Overview: Univers affected affected 02-22 Formattin ity of by by 00:00: g of this [place] proliferat proliferat 00 note Me dical [place] might be Branch diabetic diabetic different retinopath retinopath from the y with y with original. traction traction Added retinal retinal automatic detachment detachment ally from not not request involving involving for macula, macula, surgery associated associated [id number] with type with type 1 diabetes 1 diabetes mellitus mellitus Pain Pain Disease Active Univers management management 01-18 it y of 00:00: [place] 00 Medical Branch Blind Blind Disease Active Overview: Univer s painful painful 12-16 Formattin ity o f eye eye 00:00: g of this [place] 00 note Medical might be Branch different from the original. Eviscerat ion OS on 8 - Dr. 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 Added automatic ally from request for surgery [id number] ESRD (end ESRD (end Disease Active Overview: Univers stage stage 6-12 Formattin ity of renal renal 00:00: g of this [place] disease) disease) 00 note Medica l on on might be Branch dialysis dialysis different from the original. Added automatic ally from request for surgery [id number] Diabetes Diabetes Disease Active Metho di mellitus [...] Added automatic ally from request for surgery [id number] Neovascula Neovascula Disease Active 2018-0 U nivers r r 1-18 ity of glaucoma, glaucoma, 00:[place] left [place] eye 00 Medica l Branch Increased Increased Disease Active Uni vers intraocula intraocula 1-18 it y of r pressure [place] Fall Fall Disease Active 2016-06 Univers 0-13 ity of 00:00: [place] 00 Medical Branch Pneumonia Pneumonia Disease Active 2016-06 Uni vers 0-11 ity of 00:00: [place] Medical Branch Diabetes Diabetes Disease Active 2016-06 Overview: Un lori mellitus mellitus 0-05 Formattin ity of 00:00: g of this [place] 00 note Medical might be Branch different from the original. Added automatic ally from request for surgery [id number] Pseudotumo Pseudotumo Disease Active U nivers r cerebri r cerebri 9-25 ity of 00:00: [place] 00 [facility] Branch Liver Liver Disease Active [facility] [...] 7[facility]16 [facility]: [facility] Peripheral Peripheral Disease Active U viviana neuropathy neuropathy 7-16 it y of 00:00: [place] [address] Medical Branch ACUTE RESP Diagnosis Active 2016-09-09 Memoria FAILURE 2- 09:11:00 l ACUTE 00:00: [place] RESP 00 FAILURE Active 07/23/2016 [facility] CONGESTION Diagnosis Active 2016-07-24 Memoria AMD 2- 01:49:00 l DIARRHEA 00:00: Vin CONGESTION 00 AMD DIARRHEA Active 07/23/2016 [facility] Congestive Congestive Disease Active 2015-06 U T heart heart - Health failure failure 00:00: (CHF) (CHF) 00 SOB/SWELLI Diagnosis Active 2015-062016-06-10 [facility] NG 2- 15:48:00 l 00:00: Vin SOB/SWELLI 00 NG Active 6 [facility] CHF/RENAL Diagnosis Active 2015-062016-06-24 Memoria DISEASE 2- 15:35:00 l 00:00: [place] CHF/RENAL 00 DISEASE Active 06/10/2016 [facility] Obesity Obesity Disease Active 2015-06 Univers (BMI (BMI 0-12 ity of 30-39.9) 30-39.9) 00:00: [place] [address] Medical Branch Hyperosmol Hyperosmol Disease Active 2015-06 U viviana ar ar 0-12 ity of non-ketoti [place]-ketoti [place] c state in 00 Me dical patient patient Branch with 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 Hyperglyce Hyperglyce Disease Active 2015-06 U viviana maryam maryam 0-11 ity of 00:00: [place] [address] Medical Branch Diabetic Diabetic Disease Active Unive rs ulcer of ulcer of 5-07 ity of both feet both feet 00:00: Amisha lombardo associated associated 00 Me dical with type with type Bran ch 2 diabetes 2 diabetes mellitus mellitus SANJUANA (acute SANJUANA (acute Disease Active U viviana kidney kidney 5-07 ity of injury) injury) 00:00: [place] [address] Medical Branch Depression Depression Disease Active U [...] 00:00: [place] cancer in cancer in 00 [facility] female female Branch Family Family Disease [...] Memoria PAIN, 1-06 05:44:00 l SEIZURES 00:00: [place] ABDOMINAL 00 PAIN, SEIZURES Active 06/26/2013 [facility] ABD PAIN Diagnosis Active 2012-062013-04-19 M emoria 0- 21:51:00 l ABD PAIN 19:00: Jake n 00 Active 04/14/2013 [place] GASTROPERI Diagnosis Active 2012-09-13 Memoria SIS 2-12 15:17:00 l 00:00: [place] GASTROPERI 00 SIS Active 08/02/2012 [facility] ABDOMINAL Diagnosis Active 2012-03-14 Memoria PAIN 03-14 16:56:00 l 14:00: [place] ABDOMINAL 00 PAIN Active 03/14/2012 [facility] NAUSEA, Diagnosis Active 2012-03-14 Me moria VOMITING 03-14 13:25:00 l NAUSEA, 08:00: Vin VOMITING 00 Active 03/14/2012 [facility] N/V Diagnosis Active 2011-12-08 Mem oria INABILITY 11-27 11:14:00 l TO N/V 00:00: Vin TOLERATE INABILITY 00 PO TO TOLERATE PO Active 2 [facility] VOMITTING Diagnosis Active 2011-11-28 Memoria 11-27 16:28:00 l 00:00: [place] VOMITTING 00 Active 11/28/2011 [facility] VOMITTING, Diagnosis Active [facility] HIGH BLOOD 09-17 09:45:00 l SUGAR 00:00: Vin VOMITTING, 00 HIGH BLOOD SUGAR Active 09/18/2011 [facility] Methicilli Problem Active 2021-01-31 M emoria n 08-31 22:29:25 l resistant 00:00: [place] Staphyloco Methicilli 00 ccus n aureus resistant (organism) Staphyloco ccus aureus (organism) Active 09/01/2011 Problem 01/31/2021 09/01/11 - Elbow woundProbl em added by Discern Expert. [facility] MRSA Problem Active 2012-03-16 Memor ia - 09:11:30 l MRSA 00:00: [place] 00 Active 09/01/2011 Problem 03/16/2012 - Elbow [id number] emily added by Discern Expert. [facility] VOMITING, Diagnosis Active 2011-09-01 Memoria BLOOD 08-30 03:19:00 l SUGAR 00:00: Vin READINGS VOMITING, 00 HIGH BLOOD SUGAR READINGS HIGH Active 08/31/2011 [facility] ELBOW Diagnosis Active 2011-09-10 Mem oria ABSCESS/HY 08-30 16:26:00 l PERGLYCEMI ELBOW 00:00: Nidia nn A ABSCESS/HY 00 PERGLYCEMI A Active 08/31/2011 [facility] Hypokalemi Problem Active 2012-03-16 M emoria a 3-04 09:11:30 l 00:00: [place] Hypokalemi 00 a Active 08/23/2011 Problem 03/16/2012 [facility] DKA Diagnosis Active 2011-08-24 Mem oria 11:27:00 l DKA 00:00: [place] 00 Active 08/19/2011 [facility] VOMITING Diagnosis Active 2011-08-19 M emoria 16:21:00 l VOMITING 00:00: Jake n 00 Active 08/19/2011 [facility] Final: Problem 2016-08-02 Memor ia Acute 02:46:22 l respirator Final: Herm naeem y failure, Acute unspecifie respirator d whether y failure, with unspecifie hypoxia or d whether hypercapni with a hypoxia or hypercapni a 08/02/2016 [facility] Hypoglycem Problem Inactiv 2012-03-16 Memoria ia e 09:11:30 l Vin Hypoglycem ia Inactive Problem 03/16/2012 [facility] Hypoglycem Problem Inactiv 2013-04-22 Memoria ia e 04:46:33 l (disorder) Jake n Hypoglycem ia (disorder) Inactive Problem 04/22/2013 [facility] Gastropare Problem Resolve 2021-01-31 Memoria sis d 22:29:25 l (disorder) Jake gonzalez Gastropare sis (disorder) Resolved Problem 01/31/2021 [facility] Hypertensi Problem Resolve 2021-01-31 Memoria ve d 22:29:25 l disorder, Vin systemic Hypertensi arterial ve (disorder) disorder, systemic arterial (disorder) Resolved Problem 01/31/2021 [facility] Psychiatri Problem Resolve 2021-01-31 Memoria c d 22:29:25 l behavioral Jake n disability Psychiatri (finding) c behavioral disability (finding) Resolved Problem 01/31/2021 [facility] Seizure Problem Resolve 2021-01-31 Mem oria (finding) d 22:29:25 l Seizure [place] (finding) Resolved Problem 01/31/2021 [facility] Hypertensi Problem Active 2012-03-16 M emoria on 09:11:30 l Vin Hypertensi on Active Problem [facility] Hypomagnes Problem Active 2013-04-22 M emoria emia 04:46:33 l [place] Hypomagnes emia Active Problem 04/22/2013 [facility] Nausea and Problem Active 2012-03-16 M emoria vomiting 09:11:30 l Nausea [place] and vomiting Active Problem 03/16/2012 [facility] ENCNTR FOR Diagnosis Active 2020-12-24 Memoria GENERAL 10:39:00 l ADULT ENCNTR [place] MEDICAL FOR EXAM W/ GENERAL ADULT MEDICAL EXAM W/ Active [facility] DMI Diagnosis Active 2011-08-24 Mem oria KETOACD 11:27:00 l UNCONTROLD DMI Jake n KETOACD UNCONTROLD Active [facility] OTHER Diagnosis Active 2011-09-10 Mem oria GENERAL 16:26:00 l SYMPTOMS OTHER [place] GENERAL SYMPTOMS Active [facility] HEART Diagnosis Active 2016-06-24 Mem oria FAILURE, 15:35:00 l UNSPECIFIE HEART Nidia nn D FAILURE, UNSPECIFIE D Active [facility] ACUTE Diagnosis Active 2016-09-09 Mem oria RESPIRATOR 09:11:00 l Y FAILURE, ACUTE Nidia nn UNSP W RESPIRATOR HYPOXI Y FAILURE, UNSP W HYPOXI Active [facility] Nausea and Problem Resolve 2021-01-31 2021-01-31 Memoria vomiting d 6-10 22:29:25 22:29:25 l (disorder) Nausea 00:00: Herm naeem and 00 vomiting (disorder) Resolved 11/29/2011 Problem 01/31/2021 [facility] Hypokalemi Problem Resolve 2021-01-31 2021-01-31 Memoria a d 3-04 22:29:25 22:29:25 l (disorder) 00:00: Jake n Hypokalemi 00 a (disorder) Resolved 08/23/2011 Problem 01/31/2021 [facility] Disorder Problem Resolve 2021-01-31 2021-01-31 Memoria of d 3-04 22:29:25 22:29:25 l magnesium Disorder 00:00: Her braden metabolism of 00 (disorder) magnesium metabolism (disorder) Resolved 08/23/2011 Problem 01/31/2021 [facility] Hyperglyce Problem Resolve 2021-01-31 2021-01-31 Memoria maryam d 3 22:29:25 22:29:25 l (disorder) 00:00: Jake n Hyperglyce 00 maryam (disorder) Resolved 08/20/2011 Problem 01/31/2021 [facility] Ketoacidos Problem Resolve 2021-01-31 2021-01-31 Memoria is in d 22:29:25 22:29:25 l diabetes 00:00: Vin mellitus Ketoacidos 00 (disorder) is in diabetes mellitus (disorder) Resolved 08/19/2011 Problem 01/31/2021 [facility] DKA Problem Resolve 2013-04-22 2013-04-22 Memoria (diabetic d 04:46:33 04:46:33 l ketoacidos DKA 00:00: Jake gonzalez es) (diabetic 00 ketoacidos es) Resolved 08/19/2011 Problem 04/22/2013 [facility] History of Past Illness Condition Condition Condition Status Onset Resolution Last Treating Co mments Source Name Details Category Date Date Treatment Clinician Date Discharge Problem 2014-06-28 2014-06-28 Memoria Diagnosis: 1-06 16:34:37 16:34:37 l Gastropare 06:00: Jake n sis Discharge 00 Diagnosis: Gastropare sis 06/26/2014 06/28/2014 [facility] Hyperglyce Problem Inactiv 2012-03-16 2012-03-16 Memoria maryam e 3- 09:11:30 09:11:30 l 00:00: [place] Hyperglyce 00 maryam Inactive 08/20/2011 Problem 03/16/2012 [facility] Allergies, Adverse Reactions, Alerts Allergy [...] Medical s Branch CEPHALEX DRUG Active Hives 2017- Univers IN INGREDI 01-18 ity of 00:00: [...] (See confusion C [facility] Allergy Comments) 16 [facility] Lisinopr [...] Reports transient liver disease with nitrofura ntoin Nitrofur Allergy Active Anaphylaxis Other [place] antoin to 01-03 reaction( Health substanc 00:00: s): liver e 00 failure, Other (see comments) , Other - See commentsL iver failure Reports transient liver disease with nitrofura ntoinRepo rts transient liver disease with nitrofura ntoinLive r failure Reports transient liver disease with nitrofura ntoinLive r failure Liver failure KETOROLA DRUG Active High Swelling Univer s C INGREDI 6-25 ity of TROMETHA 00:00: [place] MINE 00 Medical Branch Ketorola Propensi Active Swelling THROAT Meth frantz c ty to 6-25 st Trometha adverse 00:00: Hospita mine reaction 00 l s to drug Ketorola Allergy Active Swelling throatthr [place] c to 6-25 oatthroat Health Trometha substanc 00:00: mine e 00 Fluphena Propensi Active Other (See Other Me thodi zine ty to Comments) 4 reaction( st adverse 00:00: s): ARM Hospita reaction 00 NUMBNESS l s to drug Phenylep Propensi Active Hives Other Method i hrine ty to 10-17 reaction( st adverse 00:00: s): Hives Hospit a reaction 00 l s to drug Phenylep [...] U T ins to breath 2-27 reaction( [facility] 00:00: s): e 00 HivesAirw ay closure penicill penicill Active Memori a ins ins l [place] codeine codeine Active Memoria l Vin morphine morphine Active Memori a l [place] lisinopr lisinopr Active Memori a il il l [place] Adhesive Adhesive Active Memori a Tape Tape l [place] Ambien Ambien Active Memoria l Vin Prolex Prolex Active Memoria DM DM l [place] penicill Drug Active [facility] lisinopr Drug Active [facility] Ambien Drug Active [facility] Prolixin Drug Active [facility] penicill Drug Active [facility] lisinopr Drug Active [facility] Ambien Drug Active [facility] Prolixin Drug Active [facility] Tape Other Active [facility] penicill Drug Active [facility] lisinopr Drug Active [facility] Ambien Drug Active [facility] Prolixin Drug Active [facility] codeine Drug Active [facility] penicill Drug Active [facility] lisinopr Drug Active [facility] Ambien Drug Active [facility] Prolixin Drug Active [facility] codeine Drug Active [facility] penicill Drug Active [facility] lisinopr Drug Active [facility] Ambien Drug Active [facility] Prolixin Drug Active [facility] penicill Drug Active [facility] lisinopr Drug Active [facility] Ambien Drug Active [facility] Prolixin Drug Active [facility] penicill Drug Active [facility] lisinopr Drug Active [facility] Ambien Drug Active [facility] Prolixin Drug Active [facility] Social History Social Habit Start Date Stop Date Quantity Comments Source History of tobacco Cigarette Smoker [facility] Exposure to Yes [facility] SARS-CoV-2 (event) Hospit al Alcohol intake 2021-06-18 2021-06-18 Ex-drinker [facility] 00:00:00 00:00:00 (finding) Hospital Cigarettes smoked 2021-05-14 2021-05-14 [facility] current (pack per 00:00:00 00:00:00 Hospita l day) - Reported Cigarette 2021-05-14 2021-05-14 [facility] pack-years 00:00:00 00:00:00 Hospital Tobacco use and 2021-05-14 2021-05-14 Smokeless tobacco [facility] exposure 00:00:00 00:00:00 non-user Hospital Social History 2020-12-24 2020-12-24 [facility] fatou 15:49:37 15:49:37 Tobacco Comment 2017-11-12 2017-11-12 5 cigarettes per Met [facility]ist 00:00:00 00:00:00 day Hospital Sex Assigned At [birth year] [facility] 00:00:00 00:00:00 Hospital Smoking Status Start Date Stop Date Source Smokes tobacco daily 2021-05-14 00:00:00 [facility] Former smoker 2020-06-27 00:00:00 2020-06-27 00:00:00 [facility] Medications Ordered Filled Start Stop Current Ordering Indication Dosage Frequency Signature Comments Components Source Medication Medication Date Date Medication? Clinician (SIG) Name Name glipiZIDE Yes 5mg Take 5 mg Met hodi (GLUCOTROL) 1-[address] 5 MG tablet 13:02: daily. Hosp jo-ann 39 l calcium Yes 667mg Q.[id number] Take 667 [facility] acetate 1-[id number] (PHOSLO) 13:02: 3D mouth [...] 39 nightly. l calcium 2021-0 Yes 1334mg Q.[id number] Take 1,334 [facility] acetate,domingo 1-18 [id number] mg by s t sphat bind, 13:02: 3D mouth 3 Hos whit (Phoslyra) 39 (three) l 667 mg (169 times a mg day. calcium)/5 mL solution cyproheptad Yes 4mg Q.[id number] Take 4 mg Method[facility] ine -[id number] (PERIACTIN) 13:02: 3D (three) Hos whit 4 mg tablet 39 times a l day as needed for allergies. buPROPion Yes 300mg QD Take 300 Met hodi XL 1-[address] (WELLBUTRIN 13:02: mouth Hospi ta XL) 300 MG 39 daily. l 24 hr tablet ascorbic Yes 500mg Q.[id number] Take 500 [facility] acid, -[id number] vitamin C, 13:02: 3D [...] mg at night vancomycin 2020-06- No 750mg Q.[id number] Infuse 750 [facility] 750 mg in 07-08 [id number] mg into a [address] sodium 00:00: 05:59 3W venous Hospita chloride 00 :00 catheter 3 l 0.9% 250 mL (three) IVPB times a week for 19 days. Administer 3 times weekly in dialysis HYDROcodone 2020-06- No [id number] 1{tbl} Q6H Take 1 [facility] -acetaminop 06-24 [...] 30 per tablet days. HYDROcodone 2020-06 No [id number] 2{tbl} Q8H Take 2 Methodi -acetaminop 07-26 12-13 tablets by s t hen (NORCO) 00:00: 05:59 mouth Hosp jo-ann 5-325 mg 00 :00 every 8 l per tablet (eight) hours as needed for severe pain for up to 7 days .acute pain. Max Daily Amount: 6 tablets predniSONE 2020-06- No [id number] Take M ethodi (DELTASONE) 07-18-05 Prednisone s [...] 0-03 by mouth. ity of tablet 11:08: [place] [address] Medical Branch aspirin 81 2020-06 Yes 81mg Take 1 Unive rs mg chewable 0-03 tablet by ity of tablet 11:08: mouth [place] [address] daily. Medical Branch divalproex 2020-06 Yes 500mg Take 500 Un lori ER 0-01 mg by ity of (DEPAKOTE 23:08: mouth 2 [place] ER) 500 mg 36 (two) Medical 24 hr times Branch tablet daily. gabapentin 2020-06 Yes 100mg Take 100 Un lori 100 mg 0-01 mg by ity of capsule 23:08: mouth 2 [place] [address] (two) Medical times Branch daily. vitamin C 2020-06 Yes 2000mg Take 2,000 Univers with sia 0-01 mg by ity of hips 23:08: mouth 2 [place] (VITAMIN C) 36 (two) Medical 1,000 mg times Branch tablet daily. metoprolol 2020-06 Yes 50mg Take 50 mg U nivers tartrate 50 0-01 by mouth ity of mg tablet 23:08: daily. [address] Branch folic 2020-06 Yes 800mg Take 800 Univers acid/vit B 0-01 mg by ity of complex and 23:08: mouth [place] C 36 daily. Medical (DIALYVITE Branch 800 ORAL) linagliptin 2020-06 Yes Take by Un lori (TRADJENTA) 0-01 mouth. ity of 5 mg tablet 23:08: [address] Branch spironolact 2020-06 Yes 50mg Take 50 mg Univers one 50 mg 0-01 by mouth ity of tablet 23:08: daily. [address] Branch pravastatin 2020-06 Yes 40mg Take [...] by mouth ity of tablet 23:08: daily. [place] [address] Medical Branch calcium 2020-06 Yes 667mg Take 667 Unive rs acetate 667 0-01 mg by ity of mg capsule 23:08: mouth 3 [place] (three) Medical times Branch daily with meals. cetirizine 2020-06 Yes 1{tbl} Take 1 Uni vers HCl/pseudoe 0-01 tablet by ity of phedrine 23:08: mouth [place] (ZYRTEC-D 36 daily. Medical ORAL) Branch furosemide 2020-06 Yes 40mg Take 40 mg U nivers 40 mg 0-01 by mouth 2 ity of tablet 23:08: (two) [place] [address] times Medical daily. Branch divalproex 2020-06 Yes 500mg Take 500 Un lori ER 0-01 mg by ity of (DEPAKOTE 23:08: mouth 2 [place] ER) 500 mg (two) Medical 24 hr times Branch tablet daily. gabapentin 2020-06 Yes 100mg Take 100 Un lori 100 mg 0-01 mg by ity of capsule 23:08: mouth 2 [place] [address] (two) Medical times Branch daily. vitamin C 2020-06 Yes 2000mg Take 2,000 Univers with sia 0-01 mg by ity of hips 23:08: mouth 2 [place] (VITAMIN C) (two) Medical 1,000 mg times Branch tablet daily. metoprolol 2020-06 Yes 50mg Take 50 mg U nivers tartrate 50 0-01 by mouth ity of mg tablet 23:08: daily. [place] [address] Medical Branch folic 2020-06 Yes 800mg Take 800 Univers acid/vit B 0-01 mg by ity of complex and 23:08: mouth [place] C daily. Medical (DIALYVITE Branch 800 ORAL) linagliptin 2020-06 Yes Take by Un lori (TRADJENTA) 0-01 mouth. ity of 5 mg tablet 23:08: [place] [address] Medical Branch spironolact 2020-06 Yes 50mg Take 50 mg Univers one 50 mg 0-01 by mouth ity of tablet 23:08: daily. [place] [address] Medical Branch pravastatin 2020-06 Yes 40mg Take 40 mg Univers 40 mg 0-01 by mouth ity of tablet 23:08: daily. [place] [address] Medical Branch mv-mn/iron/ 2020-06 Yes 1{capsu Take 1 U nivers folic 0-01 le} capsule by ity of acid/herb 23:08: mouth [place] 190 36 daily. Medical (VITAMIN D3 Branch COMPLETE ORAL) SERTraline 2020-06 Yes 50mg Take 50 mg U nivers 50 mg 0-01 by mouth ity of tablet 23:08: daily. [address] Branch calcium 2020-06 Yes 667mg Take [...] janice - (Same as: l 01:36: Mylicon) [place] 00 epoetin Yes 2,000 unit Mendoza janice giovanny-epbx 8 = 1 mL, l 1999 19:37: IV, [place] units/mL 00 Q-M-W-F, preservativ to be e-free [...] tab, PO, l tablet 19:33: Daily, # [place] 00 14 tab, 0 Refill(s) Norvasc No [...] 01-27 not exceed l 09:29: 4 gm/day. [place] (Same as: Tylenol) tramadol No Notes: Not Mem oria hydrochlori 01-27 to exceed l de 50 MG 09:29: 400mg/day. Her braden Oral Tablet 00 (Same As: Ultram) heparin No Notes: Memoria 01-27 porcine l 02:00: heparin Magnesium No Notes: Memori a Oxide 01-23 (Same as: l 22:54: Mag-Ox Vin 00 400) Magnesium oxide 698oe=645f g elemental magnesium Dose=____m g magnesium oxide (___mg elemental magnesium) Coreg No Notes: Memoria 01-23 Give with l 02:00: food. [place] 00 (Same As: Coreg) Buspar No Notes: Memoria 01-22 (Same As: l 22:00: BuSpar) [place] 00 Fentanyl No Notes: Memoria 01-22 (Same as: l 21:06: Sublimaze) [place] 00 Preservat [place] free. Norvasc No Notes: [...] 01-22 Take with l Tablet 14:00: food. [place] 00 Vitamin D3 No Notes: Memor ia [...] 01-21 25 mL, l (D50W) 20:01: Route: [place] 00 IVP, Drug Form: INJ, Dosing Weight [...] ine 01-21 tab, l 18:00: Route: PO, [place] Drug form: TAB, TID, Dosing Weight 72, kg, Start date: 01/21/21 13:00:00 CDT, Duration: 30 day, Stop date: 02/20/21 9:00:00 CDT Albuterol No Notes: SEE Me moria 01-21 RT l 17:49: DOCUMENTAT [place] ION (Same as: Proventil) albuterol No 180 [...] being intubated (unless the nurse is a FILM LOADER). Same as: Diprivan midazolam No Route: IV, Me moria (ANES) 01-21 Drug form: l 17:18: SOLN, Vin 00 ONCE, Stop date: 01/21/21 12:18:00 CDT fentaNYL No Route: IV, Mem oria (ANES) 01-21 Drug form: l 17:18: INJ, ONCE, [place] Stop date: 01/21/21 12:18:00 CDT niCARdipine No [...] janice 01-21 (Same as: l 13:16: Mylicon, [place] 00 Phazyme, Genasyme) calcium No See Memoria [...] n [XIFAXAN] 00 tab, 2 Refill(s), Pharmacy: [facility], 154.94, cm, 12/24/20 10:43:00 CDT, Height, 71.818, kg, 12/24/20 10:43:00 CDT, Weight {2 (480 ML Yes See Memoria Magnesium 12-24 Instructio l Sulfate 18:12: ns, take Jake n 0.0277 00 as MEQ/ML / directed, potassium give sulfate clenpiq if 0.0374 not MEQ/ML / covered by sodium insurance, sulfate # 1 ea, 0 0.257 Refill(s), MEQ/ML Oral Pharmacy: Solution) } [facility] [Suprep 808, Bowel Prep 154.94, [...] Memoria 7-06 PO, Daily, l 15:54: 0 [place] 00 Refill(s) Elderberry 0 Yes 0 Memoria preparation 7-06 Refill(s) l 15:54: Buspar 0 Yes PO, BID, 0 Memor ia 7-06 Refill(s) l 15:53: [place] 00 Dialyvite 0 Yes 0 Memoria 5000 [...] Take 7.5 UT (Buspar) 6-19 mg by [facility] 7.5 MG 00:00: mouth 2 tablet 00 (two) times a day. buPROPion Yes 300mg Take 300 UT XL 6-19 mg by [facility] (Wellbutrin 00:00: mouth 1 XL) [...] hr each day. tablet ascorbic Yes 500mg Q.[id number] Take 500 UT acid 5-15 [id number] mg by [facility] (Vitamin C) 00:00: 3D mouth 3 500 MG 00 (three) tablet times a day. sucralfate Yes 1{tbl} QD Take 1 UT (Carafate) 5-10 tablet by [facility] th 1 g tablet 00:00: mouth 1 00 (one) time each day. zinc Yes DAILY Univers sulfate 50 5-10 ity of mg zinc 00:00: [place] (220 mg) 00 Medical capsule Branch ondansetron 0 Yes 4mg Take 4 mg U nivers 4 mg 4-13 by mouth ity of disintegrat 00:00: [place]. [place] tablet 00 [facility] GLIPIZIDE 5 2020-0 Yes [id number] TAKE 1 Univers mg tablet -06 TABLET [...] by ity o f 00:00: mouth at [place] 00 bedtime. Medical Branch doxazosin 4 Yes 4mg Take 1 Univ ers mg tablet 1-07 tablet by ity o f 00:00: mouth at [place] 00 bedtime. Medical Branch glipiZIDE 5 2019-06- No [id number] 5mg Take 1 Univers mg tablet 07-01 [...] by ity of tablet 00:00: mouth at [place] [address] bedtime. Medical Branch traZODone Yes 150mg Take 150 Uni vers 150 mg 8-13 mg by ity of tablet 00:00: mouth at [place] [address] bedtime. Medical Branch erythromyci 2020- No [id number] .5[in_u Place 0.5 Univers n 5 mg/gram [...] l 59 Center hydrALAZINE 2017-0 Yes 100mg Q.[id number] Take [address] [facility] (APRESOLINE 7-20 [id number] mg by L ukes - ) 100 MG 15:20: 3D mouth 3 Medica l tablet 59 (three) Center times daily. magnesium 2017-0 Yes 400mg QD Take [address] [facility] oxide 7-20 mg by [facility] (MAG-OX) 15:20: mouth Medical 400 mg 59 daily. Center tablet metoclopram 2017-0 Yes 10mg Q.[id number] Take [address] [facility] gadiel HCl 7-20 [id number] by mouth 3 [facility] - (REGLAN) 10 [...] l 59 Center hydrALAZINE 2017-0 Yes 100mg Q.[id number] Take [address] [facility] (APRESOLINE 7-20 [id number] mg by L ukes - ) 100 MG 15:20: 3D mouth 3 Medica l tablet 59 (three) Center times daily. magnesium 2017-0 Yes 400mg QD Take [address] [facility] oxide 7-20 mg by [facility] - (MAG-OX) 15:20: mouth Medical 400 mg 59 daily. Center tablet metoclopram 2017-0 Yes 10mg Q.[id number] Take [address] [facility] gadiel HCl 7-20 [id number] by mouth 3 [facility] - (REGLAN) 10 [...] l 59 Center hydrALAZINE 2017-0 Yes 100mg Q.[id number] Take [address] [facility] [address] (APRESOLINE 7-20 [id number] mg by L ukes - ) 100 MG 15:20: 3D mouth 3 Medica l tablet 59 (three) Center times daily. magnesium 2017- Yes 400mg QD Take [address] [facility] [address] oxide 7-20 mg by [facility] - (MAG-OX) 15:20: mouth Medical 400 mg 59 daily. Center tablet metoclopram 2017-0 Yes 10mg Q.[id number] Take [address] [facility] gadiel HCl 7-20 [id number] by mouth 3 [facility] - (REGLAN) 10 [...] tab, PO, l Tablet 15:07: Daily, # [place] 00 30 tab, 0 Refill(s), Pharmacy: [facility] [id number] Bumex No 0.5 mg, Memoria 2-09 Route: PO, l 15:00: Drug form: [place] 00 TAB, Daily, Dosing Weight 92.273, kg, Start date: 07/30/16 9:00:00 PIANO INSTRUCTOR, Duration: 30 day, Stop date: 08/28/16 9:00:00 PIANO INSTRUCTOR Lasix 2016-0 No Notes: Memoria 2-08 (Same as: l 20:05: Lasix) [place] 00 May cause GI upset. Give with [...] Total Volume: 1,000, Start date: 07/26/16 12:26:00 PIANO INSTRUCTOR, Duration: 30 day, Stop date: 08/25/16 12:25:00 PIANO INSTRUCTOR Sodium 2016-0 No 500 mL, Memoria Chloride 2-05 500 ml/hr, l 0.154 13:30: Infuse [place] MEQ/ML 00 Over: 1 Injectable hr, Route: Solution IV, 500, Drug form: INJ, ONCE, Priority: STAT, Dosing Weight 92.273 kg, Start date: 07/26/16 7:30:00 PIANO INSTRUCTOR, Duration: 1 doses or times, Stop date: 07/26/16 7:30:00 PIANO INSTRUCTOR Insulin 2016- No 60 Memoria regular 2-04 [...] Roll in l Human 05:42: palms of [place] 00 hands gently; Do not shake vigorously . (Same as: NovoLOG) "single patient use only" WASTE: F/P - Black; E - Municipal Trash Bin Stable for 28 days at room temperatur e. Expires in days from ____Date Insulin, No Notes: Memoria Aspart, 2-04 Roll in l Human 03:28: palms of [place] 00 hands gently; Do not shake vigorously [...] Weight 92.273, kg, Start date: 07/24/16 9:00:00 PIANO INSTRUCTOR, Duration: 30 day, Stop date: 08/22/16 9:00:00 PIANO INSTRUCTOR 24 HR No Notes: Memoria Divalproex 2-03 (Same as: l Sodium 500 15:00: Depakote Her braden MG Extended 00 ER) Release Tablet [Depakote] gabapentin No Notes: Memor ia 300 MG Oral 2-03 (Same as: l Capsule 15:00: Neurontin) Herm naeem Aspirin 81 No Notes: Memor ia MG Chewable 2-03 Take with l Tablet 15:00: food. [place] 00 Lasix No Notes: Memoria 2-03 (Same [...] form: ERTAB, Daily, Start date: 07/24/16 9:00:00 PIANO INSTRUCTOR, Duration: 30 day, Stop date: 08/22/16 9:00:00 PIANO INSTRUCTOR Insulin No Notes: Memoria Glargine 2-03 Same [...] Notes: Memoria 2-03 (Same l 14:50: as:MORPhin [place] 00 e Sulfate) Insulin, No Notes: Memoria [...] Memoria 2-03 Same as l 11:28: Dilaudid [place] 00 Insulin, No Notes: Memoria Aspart, 2-03 Roll in l Human 08:40: palms of [place] 00 hands gently; Do not shake vigorously [...] Blood Glucose Results, Start date: 07/24/16 2:40:00 PIANO INSTRUCTOR, Duration: 30 day, Stop date: 08/23/16 2:39:00 PIANO INSTRUCTOR Dextrose No 25 gm, 50 Mendoza janice 50% Syringe 2-03 mL, Route: l 08:40: IVP, Drug [place] 00 Form: INJ, Dosing Weight 92.273, kg, PRN, PRN Blood Glucose Results, Start date: 07/24/16 2:40:00 PIANO INSTRUCTOR, Duration: 30 day, Stop date: 08/23/16 2:39:00 PIANO INSTRUCTOR Docusate No Notes: Memoria 2-03 (Same as: l 07:20: Colace) [place] (Do Not Crush) Ondansetron No Notes: Mendoza [...] l / 04:09: Duoneb) Vin Ipratropium 00 [place] 0.167 MG/ML Inhalant Solution [DuoNeb] Furosemide 2015-06 [...] Memoria 2-26 (Same as: l 15:00: Lasix) [place] 00 May cause GI upset. Give with food or milk. Magnesium 2015-06 No Notes: Memori a Oxide 2-24 (Same as: l 13:36: Mag-Ox Vin 00 400) Magnesium oxide 174rh=328c g elemental magnesium Dose=____m g magnesium oxide (___mg elemental magnesium) Magnesium 2015-06 No Notes: Memori a Oxide 2-24 (Same as: l 09:47: Mag-Ox Vin 00 400) Magnesium oxide 816qy=414y g elemental magnesium Dose=____m g magnesium oxide [...] Memoria 2-24 (Same as: l 00:00: Norvasc) [place] 00 Insulin 2015-06 No Notes: Memoria Glargine [...] tab, PO, l tablet 15:35: Daily, 0 [place] 00 Refill(s) pravastatin 2015-06 No 40 mg = 1 M emoria 40 mg oral 2-23 tab, PO, l tablet 15:35: Daily, 0 [place] 00 Refill(s) Sertraline 2015-06 Yes 200 mg = 2 M emoria 100 MG Oral 2-23 tab, PO, l Tablet 15:27: Daily, 0 [place] [Zoloft] 00 Refill(s) pantoprazol 2015-06 Yes 40 mg = 1 M emoria e 40 MG 2-23 tab, PO, l Enteric 15:27: Daily, 0 Jake n Coated 00 Refill(s) Tablet [Protonix] gabapentin 2015-06 Yes 1 CAP PO Mem oria 300 MG Oral 2-23 BID AND 1 l Capsule 15:27: CAP AT [place] 00 BEDTIME, 0 Refill(s) Insulin, 2015-06 No [...] Weight 86.364, kg, Start date: 06/11/16 9:00:00 PIANO INSTRUCTOR, Duration: 30 day, Stop date: 07/10/16 9:00:00 PIANO INSTRUCTOR Insulin 2015-06 No Notes: Memoria Glargine 2-22 [...] sodium, 2-22 porcine l porcine 06:00: heparin [place] 2500 UNT/ML 00 Injectable Solution Albuterol 2015-06 No Notes: Memori a 0.833 MG/ML 08-12 (Same as: l / 03:00: Duoneb) Vin Ipratropium 00 [place] 0.167 MG/ML Inhalant Solution [DuoNeb] gabapentin 2015-06 No 300 mg, Mendoza janice 300 MG Oral 08-12 Route: PO, l Capsule 03:00: Drug form: Herm naeem 00 CAP, Q12H, Dosing Weight 86.364, kg, (CrCl 30 - 59 ml/min), Start date: 06/10/16 21:00:00 PIANO INSTRUCTOR, Duration: 30 day, Stop date: 07/10/16 9:00:00 PIANO INSTRUCTOR divalproex 2015-06 No Notes: Memor ia sodium 2-22 (Same as: l 03:00: Depakote [place] 00 ER) Once daily dosing; indicated for migraines. Divalproe x sodium extended-r elease tab. Do not chew or crush. "Do Not Crush" Losartan 2015-06 No Notes: Memoria 2-22 (Same as: l 03:00: Cozaar) [place] 00 Insulin, 2015-06 No Notes: Memoria Aspart, [...] Blood Glucose Results, Start date: 06/10/16 18:50:00 PIANO INSTRUCTOR, Duration: 30 day, Stop date: 07/10/16 18:49:00 PIANO INSTRUCTOR Glucagon 2015-06 No 1 mg, Memoria 2-22 Route: IM, l 00:50: Drug form: PDR/INJ, PRN, Dosing Weight 86.364, kg, PRN Blood Glucose Results, Start date: 06/10/16 18:50:00 PIANO INSTRUCTOR, Duration: 30 day, Stop date: 07/10/16 18:49:00 PIANO INSTRUCTOR Hydralazine 2015-06 No Notes: Mendoza janice 2-22 [...] Weight 86.364, kg, Start date: 06/10/16 18:06:00 PIANO INSTRUCTOR, Stop date: 06/10/16 18:06:00 PIANO INSTRUCTOR hydrOXYzine 2015-06 No Notes: Mendoza janice pamoate 2-21 (Same as: l 23:00: Vistaril) Furosemide 2015-06 No 60 mg, Memor ia 2-21 Route: l 22:32: IVP, Drug form: INJ, ONCE, Dosing Weight 86.364, kg, Start date: 06/10/16 16:32:00 PIANO INSTRUCTOR, Stop date: 06/10/16 16:32:00 PIANO INSTRUCTOR Lasix 2015-06 No Notes: Memoria 08-11 (Same as: l 17:22: Lasix) MEDICATION WASTE Product Size: 40 mg Product Wasted: _0__ mg Albuterol 2015-06 No Notes: Memori a 0.833 MG/ML 08-11 (Same as: l / 17:22: Duoneb) Ipratropium 00 [place] 0.167 MG/ML Inhalant Solution [DuoNeb] Promethazin Yes 25 mg = 1 M emoria e -06 supp, OK, l Hydrochlori 14:45: Q6H, Jake n de [...] Memori a pamoate - Refill(s) l 11:18: [place] Dicyclomine Yes 0 Memori a -06 Refill(s) l 11:18: [place] 00 Ondansetron Yes 0 Memori a 1-06 [...] Rate: 125 l 0.9% IV 04:10: ml/hr, [place] 1,000 mL 00 Infuse over: 8 hr, [...] 03-14 Marx Rate: l 0.9% 22:19: 1,000 [place] (Bolus) IV 00 ml/hr, 500 mL Infuse [...] insulin No Blake 10 unit, Mem oria isophane-MEASUREMENT SUPERINTENDENT 6-11 Deangelo 0.1 mL, l H 02:00: Route: [place] SUB-Q, Drug form: INJ, Bedtime, Start date: [...] 6-10 Omidvar Route: l 21:33: IVP, ONCE, [place] 00 Start date: 11/29/11 16:33:00, Stop date: 11/29/11 16:33:00 morphine 2011-0 No [place] 2 mg, 0.5 Me moria Sulfate 6-10 Omidvar mL, Route: l 21:32: IVP, Drug Vin 00 form: INJ, ONCE, Start date: 11/29/11 16:32:00, Stop date: 11/29/11 16:32:00 Tylenol 2011-0 No [place] 650 mg, 2 Mem oria 6-10 Omidvar tab, l 19:16: Route: PO, [place] Drug form: TAB, Q4H, PRN Pain, Start date: 11/29/11 14:16:00, Duration: 30 day, Stop date: 12/29/11 14:15:00 insulin 2011-0 No Blake 14 unit, Mem oria isophane-MEASUREMENT SUPERINTENDENT 6-10 Deangelo 0.14 mL, l H 14:00: Brisa Route: [place] 00 SUB-Q, Drug form: INJ, Daily, Start date: 11/29/11 9:00:00, Duration: 30 day, Stop date: 12/28/11 9:00:00 Insulin 2011-0 No Blake 10 unit, Mem oria regular 6-10 Deangelo 0.1 mL, l 14:00: Brisa Route: [place] 00 SUB-Q, Drug form: SOLN, Daily, Start [...] 1,000 mL 11-27 Rate: l 22:48: 1,000 [place] 00 ml/hr, Infuse over: 1 hr, Route: [...] 6-09 mL, Route: l 20:35: IVP, Drug [place] 00 form: INJ, ONCE, Priority: STAT, Start date: 11/28/11 15:35:00, Stop date: 11/28/11 15:35:00 Novolin R Yes Hughes-Jason 8 unit, M emoria 100 3-30 [place] SUB-Q, l units/mL 17:47: Eunice Q12H, 2 He rmann injectable 42 Pu vial, solution Substituti on Allowed, SOLN Novolin N Yes Hughes-Jason 10 unit, Memoria 100 3-30 [place] SUB-Q, l units/mL 17:46: Eunice Bedtime, H ermann subcutaneou 27 Pu 10 ml, s injection Substituti on Allowed, SUSP Novolin N Yes Hughes-Jason 14 unit, Memoria 100 3-30 [place] SUB-Q, l units/mL 17:44: Eunice QAM, 1 Her braden subcutaneou 37 Pu vial, s injection Substituti on Allowed, SUSP magnesium No Hughes-Jason 400 mg, 1 Memoria oxide 3-30 [place] tab, l 14:55: [place] Route: PO, Her braden 00 Pu Drug form: TAB, ONCE, Priority: STAT, Start date: 09/18/11 9:55:00, Stop date: 09/18/11 9:55:00 Insulin No Hughes-Jason 8 unit, Mem oria regular 3-30 [place] 0.08 mL, l 14:22: [place] Route: Vin 00 Pu SUB-Q, Drug form: SOLN, ONCE, Priority: STAT, Start date: 09/18/11 9:22:00, Stop date: 09/18/11 9:22:00 Lactated 2012-0 No Hughes-Jason 1,000 mL, Memoria Ringers 3-30 [facility] Rate: l (Bolus) IV 14:16: [place] 1,000 He rmann 1,000 mL 00 Pu ml/hr, Infuse over: 1 hr, Route: IV, Total Volume: 1,000, [place] Dose, Priority: STAT, Start date: 09/18/11 9:16:00, Duration: 1 doses or times, Stop date: 09/18/11 10:15:00 Sodium 2011-0 No Hughes-Jason 1,000 mL, Me moria Chloride 3-30 [place] Rate: l 0.9% 14:06: [place] 1,000 [place] (Bolus) IV 00 Pu ml/hr, 1000 mL Infuse over: 1 hr, Route: IV, kg, Total Volume: 1,000, [place] Dose, Priority: STAT, Start date: 09/18/11 9:06:00, Duration: 1 doses or times, Stop date: 09/18/11 10:05:00 sulfamethox 2011-0 Yes Substituti Memoria azole 3-30 on Allowed l 14:04: Vin 58 Sodium 2011-0 No Hughes-Jason 1,000 mL, Me moria Chloride 3-30 [place] Rate: l 0.9% 13:56: Dawson 1,000 [place] (Bolus) IV 00 Pu ml/hr, 1000 mL [...] 3-21 Amelia cap, PO, l capsule 18:47: [place] BID, 60 Her braden 19 cap, Substituti on Allowed, CAP clindamycin 2011- Yes Luna 300 mg, 2 Memoria 150 mg oral 3-21 Amelia cap, PO, l capsule 18:46: [place] Q8H, 30 Her braden 55 cap, Substituti on Allowed, CAP [place] Yes Luna 1 tab, PO, Memoria 10/325 oral -21 Amelia Q4H, PRN, l tablet 18:46: Zeeshan 30 tab, Herm naeem 36 Pain, Substituti on Allowed, Maintenanc e, TAB [place] No Hollie Donavan 1 tab, Mendoza janice [...] Memoria - Josefina mL, Route: l 14:19: [place] IVP, Drug Jake n 00 form: INJ, [...] Memoria 09-06 Arias Route: l 13:31: IVPB, [place] 00 ONCE, Start date: 09/07/11 8:31:00, Stop [...] 3-17 Wong tab, l 04:00: Route: PO, [place] Drug form: ECTAB, Daily, PRN Constipati on, Priority: NOW, Start date: 09/04/11 23:00:00, Duration: 30 day, Stop date: 10/04/11 22:59:00 Zofran 2011-0 No Hector 4 mg, 2 Memori a 3-16 Hissam mL, Route: l 23:11: Peg IV, Drug Jake n 00 form: INJ, Q4H, PRN as needed for nausea/vom iting, Priority: NOW, Start date: 09/04/11 18:11:00, Duration: 30 day, Stop date: 10/04/11 18:10:00 [place] 2011-0 No Mahammad 1 tab, Memori a [...] 3-16 Kavon 0.1 mL, l 14:50: Route: [place] 00 IVP, Drug form: INJ, Q2MIN, PRN Narcotic Reversal, Start date: 09/04/11 9:50:00, Duration: 30 day, Stop date: 10/04/11 9:49:00 [place] 2011-0 No [place] 1 tab, Memoria 10/325 [...] 3-15 Anabelle mL, Route: l 16:00: IVPB, [place] [id number], Start date: 09/03/11 11:00:00, Duration: 30 day, Stop date: 10/03/11 8:00:00 potassium 2011-0 No [place] 40 mEq, 2 M emoria chloride 3-15 Omidvar tab, l 13:39: Route: PO, Vin Drug form: ERTAB, ONCE, Start date: 09/03/11 8:39:00, Stop date: 09/03/11 8:39:00 [place] 5/325 2011-0 No Rosalino 1 tab, M emoria oral tablet 3-15 Kavon Route: PO, l 05:00: Drug Form: [place] 00 TAB, Q4H, Start date: 09/03/11 0:00:00, Duration: 30 day, Stop date: 10/02/11 20:00:00 Geodon 2011-0 No Eber L 120 mg, 3 Memoria 3-15 Anabelle cap, l 02:00: Route: PO, [place] 00 Drug form: CAP, Bedtime, Start date: [...] 3-14 Anabelle cap, l 17:00: Route: PO, [place] 00 Drug form: ERCAP, Daily, Give qAM after today's dose., Start date: 09/02/11 12:00:00, Duration: 30 day, Stop date: 10/02/11 9:00:00 [place] 5/325 2011-0 No Rosalino 1 tab, M [...] Route: l 14:00: IVPB, Drug form: INJ, [id number], Start date: 09/02/11 9:00:00, Duration: 30 day, Stop date: 10/01/11 21:00:00 clindamycin 2011-0 No Eber L 600 mg, 4 Memoria (SCIP) 3-14 Anabelle mL, Route: l 10:00: IVPB, Vin 00 [id number], Start date: 09/02/11 5:00:00, Duration: 3 doses or times, Stop date: 09/02/11 21:00:00 clindamycin 2011-0 No Yury 600 mg, 4 Memoria (SCIP) 3-14 Silverio mL, Route: l 04:00: [place] IVPB, [place] 00 [id number], Start date: 09/01/11 23:00:00, Duration: 3 doses or times, Stop date: 09/02/11 15:00:00 insulin No [place] 15 unit, Mendoza janice isophane-MEASUREMENT SUPERINTENDENT 3-14 Omidvar 0.15 mL, l H 02:00: Route: [place] 00 SUB-Q, Drug form: INJ, Q12H, Start date: 09/01/11 21:00:00, Stop date: 10/01/11 9:00:00 labetalol No Mariaelena-Corea 5 mg, Me moria 3-14 Barbra Route: l 01:07: Feliciano IVP, Vin 00 Q5Min, PRN Elevated BP, Start date: 09/01/11 20:07:00, Duration: 5 doses or times, Stop date: Limited # of times hydrALAZINE No Mariaelena-Corea 5 mg, Memoria 3-14 Barbra Route: l 01:07: Feliciano IVP, [place] 00 Q5Min, PRN Elevated BP, Start date: [...] 3-14 Barbra Route: l 01:07: Feliciano IVP, [place] 00 Q2MIN, PRN Narcotic Reversal, Start date: [...] Route: l 01:00: IVPB, Drug form: INJ, [id number], Start date: 09/01/11 20:00:00, Duration: 30 day, [...] Route: l 00:00: IVPB, Drug form: INJ, [id number], Start date: 09/01/11 19:00:00, Duration: 30 day, Stop date: 10/01/11 7:00:00 insulin 2011-0 No Missael 6 unit, Memori a aspart 3-13 Movva 0.06 mL, l 23:23: Route: [place] 00 SUB-Q, Drug form: SOLN, TID-Before Meals, [...] Beni mL, Route: l 21:14: IVP, Drug [place] form: INJ, Q4H, PRN Severe Pain, Start date: 09/01/11 16:14:00, Stop date: 10/01/11 16:13:00 Lactated 2011-0 No Cesar 1,000 mL, Me moria Ringers IV 3-13 Manuel [place] Rate: 100 l 1,000 mL 19:03: ml/hr, [place] 00 Infuse over: 10 hr, Route: IV, [...] 3-13 Cruzito Rate: l 0.9% 10:41: 1,000 [place] (Bolus) IV 00 ml/hr, 1000 mL Infuse over: 1 hr, Route: IV, Dosing Weight 68.182 kg, Total Volume: 1,000, [place] Dose, Priority: STAT, Start date: 09/01/11 5:41:00, Duration: 1 doses or times, Stop date: 09/01/11 6:40:00 ondansetron 2011-0 No Bee L 4 mg, Memoria 3-13 Cruzito Route: l 09:06: IVP, Drug [place] 00 form: INJ, ONCE, Priority: STAT, Start [...] L 8 unit, Me moria regular 08-31 [place] 0.08 mL, l 08:30: Route: Vin 00 [...] Akmal SUB-Q, l human 14:40: TID, 30 [place] recombinant 10 vial, 3, 100 3, units/mL [...] Akmal mL, Route: l 12:26: IVPB, Drug [place] 00 form: INJ, ONCE, Total dose = [...] Rodriguez 10 mL, l 16:25: Ahmed Route: [place] 00 IVPB, ONCE, Start date: 08/22/11 10:25:00, [...] 2011-0 No Yury 10 unit, Mem oria isophane-MEASUREMENT SUPERINTENDENT 3- G[place] Route: l H 16:00: Rivero SUB-Q, Nidia nn 00 ONCE, Start date: 08/20/11 10:00:00, Stop date: 08/20/11 10:00:00 trazodone 2012-0 Yes 200 mg, 2 Mem oria 100 mg oral 3-01 tab, PO, l tablet 15:37: Bedtime, [place] 27 90 tab, Substituti on Allowed, TAB [...] 2011-0 No Yury 10 unit, Mem oria isophane-MEASUREMENT SUPERINTENDENT 3- [place] Route: l H 15:00: Rivero [...] Allowed insulin No 10 unit, Memori a isophane-MEASUREMENT SUPERINTENDENT 3- SUB-Q, l H 09:26: BID, Vin [...] 2011-0 No Yury 18 unit, Mem oria isophane-MEASUREMENT SUPERINTENDENT 3- [place] 0.18 mL, l H 08:58: [...] ondansetron No Hughes-Jason 4 mg, emoria 08-19 [place] Route: l 07:42: [place] IVP, Drug Herm naeem 00 Pu form: INJ, ONCE, Priority: STAT, Start date: 08/20/11 1:42:00, Stop date: 08/20/11 1:42:00 GI cocktail No Hughes-Jason 30 ml, Memoria 08-19 [place] Route: PO, l 05:12: Eunice Drug Form: Her braden 00 Pu SUSP, ONCE, STAT, Start date: 08/19/11 23:12:00, Stop date: 08/19/11 23:12:00 ondansetron 0 No [facility] [place] Route: PO, l 05:10: [place] Drug form: Her braden 00 Pu TABDIS, ONCE, Priority: STAT, Start date: 08/19/11 23:10:00, Stop date: 08/19/11 23:10:00 Lactated 2011-0 No Hughes-Jason 1,000 mL, Memoria Ringers 3-01 [facility] Rate: l (Bolus) IV 05:10: [place] 1,000 He rmann 1000 mL 00 Pu ml/hr, Infuse over: 1 hr, Route: IV, Total Volume: 1,000, [place] Dose, Priority: STAT, Start date: 08/19/11 23:10:00, Duration: 1 doses or times, Stop date: 08/20/11 0:09:00 Insulin 2011- No Hughes-Jason 7 unit, Mem oria regular 08-19 [place] 0.07 mL, l 04:15: [place] Route: [place] 00 Pu SUB-Q, Drug form: SOLN, ONCE, Priority: STAT, Start date: 08/19/11 22:15:00, Stop date: 08/19/11 22:15:00 Geodon 60 2011-0 No Yury 60 mg, 1 M emoria mg oral 2-29 [place] cap, PO, l capsule 23:24: Rivero BID, 180 [place] 43 cap, Substituti on Allowed, CAP trazodone [...] Wong Route: IV, l 21:57: Pooja ONCE, [place] 00 Start date: 08/19/11 15:57:00, Stop date: 08/19/11 15:57:00 Lactated 0 No William 1,000 mL, Me moria Ringers Wong Rate: l (Bolus) IV 21:12: Opoja 1,000 Herm naeem 1000 mL 00 ml/hr, Infuse over: 1 hr, Route: IV, Total Volume: 1,000, [place] Dose, Priority: STAT, Start date: 08/19/11 15:12:00, Duration: 1 doses or times, Stop date: 08/19/11 16:11:00 Immunizations Ordered Immunization Filled Immunization Date Status Commen ts Source Name Name Influenza Virus 2020-02-20 Completed [facility]00 [facility] Influenza Virus 2020-02-20 Completed [facility] of Vaccine 00:00:00 [facility] TDAP (ADACEL) VACCINE 2019-07-25 Completed Uni versity of 00:00:00 [facility] Meningococcal B, OMV 2019-07-25 Completed Univ ersity of 00:00:00 [facility] Meningococcal 2019-07-25 Completed University of Polysaccharide 00:00:00 [place] [facility] (groups A, C, Y and Branc h W-135) conjugate vaccine (MCV4P) TDAP (ADACEL) VACCINE 2019-07-25 Completed Uni versity of 00:00:00 [facility] Meningococcal B, OMV 2019-07-25 Completed Univ ersity of 00:00:00 [facility] Meningococcal 2019-07-25 Completed University of Polysaccharide 00:00:00 [place] [facility] (groups A, C, Y and [...] Vaccine Quad IM 3+ 00:00:00 [facility] Influenza Virus 2017-06-22 Completed Universit y of Vaccine Quad IM 3+ 00:00:00 [facility] Influenza Virus 2016-04-02 Completed Universit y of Vaccine Quad IM 3+ 00:00:00 [facility] Influenza Virus 2016-04-02 Completed Universit y of Vaccine Quad IM 3+ 00:00:00 [facility] Influenza Virus 2015-10-28 Completed Universit y of Vaccine Quad IM 3+ 00:00:00 [facility] Influenza Virus 2015-10-28 Completed Universit y of Vaccine Quad IM 3+ 00:00:00 [facility] Vital Signs Vital Name Observation Time [...] 2020-06-27 16:33:00 171 mm[Hg] [facility] Diastolic blood 2020-06-27 16:33:00 98 mm[Hg] Unive rsity of [facility] Heart rate 2020-06-27 16:33:00 71 /min [facility] Respiratory rate 2020-06-27 16:29:00 19 /min Univ ersity of [facility] Body height 2020-06-27 16:29:00 [facility] 2020-06-27 16:29:00 [facility] BMI 2020-06-27 16:29:00 32.20 kg/m2 [facility] Oxygen saturation in 2020-06-27 16:29:00 99 /min University Arterial blood by [facility] Pulse oximetry Branch Height/Length 2021-07-08 11:50:13 154.9 cm Measured Weight Dosing 2021-07-08 11:50:13 85.00 kg Height/Length 2021-07-08 11:47:31 154.9 cm Measured Weight Dosing 2021-07-08 11:47:31 85.00 kg Height/Length 2021-07-08 11:47:20 154.9 cm Measured Weight Dosing 2021-07-08 11:47:20 85.00 kg Systolic blood 2021-07-08 19:43:00 189 mm[Hg] [facility] [facility] pressure Diastolic blood 2021-07-08 19:43:00 104 mm[Hg] [facility] pressure Heart rate 2021-07-08 18:56:00 74 /min [facility] Body temperature 2021-07-08 18:56:00 36.39 Cathleen [facility] Body height 2021-07-08 18:56:00 157.5 cm [facility] Body weight 2021-07-08 18:56:00 72.938 kg [facility] BMI 2021-07-08 18:56:00 29.41 kg/m2 [facility] Oxygen saturation in 2021-07-08 18:56:00 100 /min [facility] Arterial blood by Pulse oximetry Respiratory rate 2021-06-18 16:36:00 11 /min [facility] Systolic (mm Hg) 2021-01-29 20:03:00 Mendoza rial Vin Diastolic (mm Hg) 2021-01-29 20:03:00 Mem orial Vin Systolic (mm Hg) 2021-01-29 19:40:00 Mendoza rial Vin Diastolic (mm Hg) 2021-01-29 19:40:00 Mem orial Vin Systolic (mm Hg) 2021-01-29 18:05:00 Mendoza rial [place] Diastolic (mm Hg) 2021-01-29 18:05:00 Mem o[facility] [place] Respitory Rate 2021-01-29 16:55:00 Mem[facility] [place] Temperature Oral (F) 2021-01-29 16:45:00 97.3 F [facility] [place] Respitory Rate 2021-01-29 16:45:00 Memori al Vin Respitory Rate 2021-01-29 16:30:00 [facility] [place] Temperature Oral (F) 2021-01-29 13:10:00 97.6 F [facility] [place] Systolic (mm Hg) 2021-01-27 05:00:00 Mendoza rial Vin Diastolic (mm Hg) 2021-01-27 05:00:00 Mem orial Vin Systolic (mm Hg) 2021-01-27 04:00:00 Mendoza rial Vin Diastolic (mm Hg) 2021-01-27 04:00:00 Mem o[facility] [place] Systolic (mm Hg) 2021-01-27 03:00:00 Mendoza rial [place] Diastolic (mm Hg) 2021-01-27 03:00:00 Mem orial Vin Respitory Rate 2021-01-26 19:00:00 Memori al Vin Respitory Rate 2021-01-26 18:00:00 Memori al Vin Respitory Rate 2021-01-26 17:00:00 [facility] [place] Temperature Oral (F) 2021-01-22 13:00:00 97.6 F [facility] [place] Height 2021-01-21 18:25:00 149.86 cm [facility] Weight 2021-01-21 18:25:00 [facility] BMI Calculated 2021-01-21 18:25:00 [facility] [place] Height 2021-01-21 17:09:00 157.48 cm [facility] Height 2021-01-21 13:09:00 157.48 cm [facility] Weight 2021-01-21 13:09:00 [facility] BMI Calculated 2021-01-21 13:09:00 Memori al Vin Heart Rate 2021-01-21 12:50:00 [facility] Systolic (mm Hg) 2020-12-24 15:43:00 Mendoza rial Vin Diastolic (mm Hg) 2020-12-24 15:43:00 Mem o[facility] [place] Heart Rate 2020-12-24 15:43:00 [facility] Height 2020-12-24 15:43:00 154.94 cm [facility] [place] Weight 2020-12-24 15:43:00 [facility] [place] BMI Calculated 2020-12-24 15:43:00 [facility] [place] Systolic (mm Hg) 2016-07-30 14:00:00 Mendoza rial [place] Diastolic (mm Hg) 2016-07-30 14:00:00 Mem orial Vin Respitory Rate 2016-07-30 14:00:00 [facility] [place] Heart Rate 2016-07-30 14:00:00 [facility] [place] Temperature Oral (F) 2016-07-30 14:00:00 97.4 F [facility] [place] Systolic (mm Hg) 2016-07-30 10:45:00 Mendoza rial Vin Diastolic (mm Hg) 2016-07-30 10:45:00 Mem orial Vin Heart Rate 2016-07-30 10:45:00 [facility] [place] Temperature Oral (F) 2016-07-30 10:45:00 97.2 F [facility] [place] Respitory Rate 2016-07-30 10:45:00 [facility] [place] Heart Rate 2016-07-30 06:35:00 [facility] [place] Temperature Oral (F) 2016-07-30 06:35:00 97.0 F [facility] [place] Respitory Rate 2016-07-30 06:35:00 Memori al Vin Systolic (mm Hg) 2016-07-30 06:35:00 Mendoza rial Vin Diastolic (mm Hg) 2016-07-30 06:35:00 Mem [facility] [place] Weight 2016-07-24 02:13:00 [facility] BMI Calculated 2016-07-24 02:13:00 Memori al Vin Height 2016-07-24 02:13:00 160.02 cm [facility] Respitory Rate 2016-06-15 15:00:00 [facility] [place] Systolic (mm Hg) 2016-06-15 15:00:00 Mendoza rial [place] Diastolic (mm Hg) 2016-06-15 15:00:00 Mem o[facility] [place] Respitory Rate 2016-06-15 14:00:00 Memori al Vin Systolic (mm Hg) 2016-06-15 14:00:00 Mendoza rial Vin Diastolic (mm Hg) 2016-06-15 14:00:00 Mem orial Vin Respitory Rate 2016-06-15 13:29:00 Memori al Vin Systolic (mm Hg) 2016-06-15 13:29:00 Mendoza rial [place] Diastolic (mm Hg) 2016-06-15 13:29:00 Mem o[facility] [place] Temperature Oral (F) 2016-06-14 10:56:00 97.1 F [facility] Temperature Oral (F) 2016-06-14 06:55:00 97.1 F [facility] Temperature Oral (F) 2016-06-12 10:00:00 96.8 F [facility] [place] Weight 2016-06-11 04:25:00 [facility] [place] Height 2016-06-11 04:25:00 160.02 cm [facility] BMI Calculated 2016-06-11 04:25:00 Memori al Vin Heart Rate 2016-06-11 02:04:00 [facility] [place] Heart Rate 2016-06-11 00:00:00 [facility] Heart Rate 2016-06-10 20:30:00 [facility] Weight 2016-06-10 16:04:00 [facility] [place] BMI Calculated 2016-06-10 16:04:00 [facility] [place] Height 2016-06-10 16:04:00 160.02 cm [facility] Temperature Oral (F) 2014-06-26 15:12:00 98.0 F [facility] [place] Systolic (mm Hg) 2014-06-26 15:12:00 Mendoza rial Vin Heart Rate 2014-06-26 15:12:00 [facility] Diastolic (mm Hg) 2014-06-26 15:12:00 Mem o[facility] [place] Respitory Rate 2014-06-26 15:12:00 [facility] [place] Systolic (mm Hg) 2014-06-26 13:53:00 Mendoza rial [place] Diastolic (mm Hg) 2014-06-26 13:53:00 Mem o[facility] [place] Respitory Rate 2014-06-26 13:53:00 Memori al Vin Temperature Oral (F) 2014-06-26 13:53:00 98.0 F [facility] Temperature Oral (F) 2014-06-26 12:37:00 98.2 F [facility] Respitory Rate 2014-06-26 12:37:00 Memori al Vin Systolic (mm Hg) 2014-06-26 12:37:00 Mendoza rial Vin Diastolic (mm Hg) 2014-06-26 12:37:00 Mem o[facility] [place] Heart Rate 2014-06-26 09:21:00 [facility] [place] Heart Rate 2014-06-26 06:08:00 [facility] [place] Height 2014-06-26 05:35:00 154.94 cm [facility] [place] Weight 2014-06-26 05:35:00 [facility] [place] BMI Calculated 2014-06-26 05:35:00 [facility] [place] Respitory Rate 2013-04-15 06:10:00 Memori al Vin Diastolic (mm Hg) 2013-04-15 06:10:00 Mem o[facility] [place] Heart Rate 2013-04-15 06:10:00 [facility] [place] Systolic (mm Hg) 2013-04-15 06:10:00 Mendoza rial [place] Temperature Oral (F) 2013-04-15 06:10:00 98.7 F [facility] [place] Respitory Rate 2013-04-15 05:37:00 [facility] [place] Diastolic (mm Hg) 2013-04-15 05:37:00 Mem orial Vin Systolic (mm Hg) 2013-04-15 05:37:00 Mendoza rial [place] Temperature Oral (F) 2013-04-15 05:37:00 98.2 F [facility] [place] Heart Rate 2013-04-15 05:37:00 [facility] [place] Height 2013-04-15 02:06:00 160.02 cm [facility] [place] Weight 2013-04-15 02:06:00 [facility] [place] Temperature Oral (F) 2013-04-15 02:06:00 98.6 F [facility] [place] Respitory Rate 2013-04-15 02:06:00 Memori al Vin Heart Rate 2013-04-15 02:06:00 [facility] Diastolic (mm Hg) 2013-04-15 02:06:00 Mem orial Vin Systolic (mm Hg) 2013-04-15 02:06:00 Mendoza rial Vin Weight 2012-03-14 21:33:00 [facility] Systolic (mm Hg) 2011-12-01 00:33:00 Mendoza rial [place] Respitory Rate 2011-12-01 00:33:00 Memori al Vin Heart Rate 2011-12-01 00:33:00 [facility] Diastolic (mm Hg) 2011-12-01 00:33:00 Mem orial Vin Temperature Oral (F) 2011-12-01 00:33:00 99.6 F [facility] [place] Diastolic (mm Hg) 2011-11-30 21:00:00 Mem o[facility] [place] Heart Rate 2011-11-30 21:00:00 [facility] [place] Respitory Rate 2011-11-30 21:00:00 Memori al Vin Systolic (mm Hg) 2011-11-30 21:00:00 Mendoza rial [place] Temperature Oral (F) 2011-11-30 21:00:00 99.8 F [facility] Respitory Rate 2011-11-30 16:30:00 [facility] [place] Systolic (mm Hg) 2011-11-30 16:30:00 Mendoza rial [place] Diastolic (mm Hg) 2011-11-30 16:30:00 [facility] [place] Heart Rate 2011-11-30 16:30:00 [facility] Temperature Oral (F) 2011-11-30 16:30:00 99.8 F [facility] Weight 2011-11-29 11:40:00 [facility] [place] Height 2011-11-29 11:40:00 157.48 cm [facility] [place] Weight 2011-11-28 17:16:00 [facility] Weight 2011-09-18 13:30:00 [facility] Height 2011-09-18 13:30:00 154.94 cm [facility] [place] Heart Rate 2011-09-09 13:31:00 [facility] Systolic (mm Hg) 2011-09-09 13:02:00 Mendoza rial Vin Diastolic (mm Hg) 2011-09-09 13:02:00 Mem orial Vin Respitory Rate 2011-09-09 13:02:00 [facility] [place] Temperature Oral (F) 2011-09-09 13:02:00 97.5 F [facility] Diastolic (mm Hg) 2011-09-09 08:00:00 Mem orial Vin Heart Rate 2011-09-09 08:00:00 [facility] Temperature Oral (F) 2011-09-09 08:00:00 98.6 F [facility] Respitory Rate 2011-09-09 08:00:00 [facility] [place] Systolic (mm Hg) 2011-09-09 08:00:00 Mendoza rial Vin Respitory Rate 2011-09-09 04:55:00 Memori al Vin Diastolic (mm Hg) 2011-09-09 04:55:00 Mem o[facility] [place] Systolic (mm Hg) 2011-09-09 04:55:00 Mendoza rial Vin Heart Rate 2011-09-09 04:55:00 [facility] Temperature Oral (F) 2011-09-09 00:55:00 98.7 F [facility] [place] Weight 2011-09-01 19:59:00 [facility] Height 2011-09-01 19:59:00 154.94 cm [facility] Height 2011-09-01 07:01:00 154.94 cm [facility] [place] Weight 2011-09-01 07:01:00 [facility] Respitory Rate 2011-08-23 18:00:00 [facility] [place] Heart Rate 2011-08-23 18:00:00 [facility] [place] Systolic (mm Hg) 2011-08-23 18:00:00 Mendoza rial [place] Diastolic (mm Hg) 2011-08-23 18:00:00 Mem orial Vin Temperature Oral (F) 2011-08-23 18:00:00 97.7 F [facility] [place] Heart Rate 2011-08-23 14:24:00 [facility] Temperature Oral (F) 2011-08-23 14:24:00 98.2 F [facility] [place] Diastolic (mm Hg) 2011-08-23 14:24:00 Mem [facility] [place] Systolic (mm Hg) 2011-08-23 14:24:00 Mendoza rial [place] Respitory Rate 2011-08-23 14:24:00 [facility] [place] Systolic (mm Hg) 2011-08-23 11:15:00 Mendoza rial [place] Diastolic (mm Hg) 2011-08-23 11:15:00 Mem orial Vin Temperature Oral (F) 2011-08-23 11:00:00 98.3 F [facility] [place] Heart Rate 2011-08-23 11:00:00 [facility] [place] Respitory Rate 2011-08-22 22:00:00 Memori al Vin Height 2011-08-20 09:12:00 154.94 cm [facility] Weight 2011-08-20 09:12:00 [facility] Height 2011-08-19 20:28:00 154.94 cm [facility] Weight 2011-08-19 20:28:00 [facility] Procedures Procedure Date / Time Performing Clinician Source Performed POC GLUCOSE 2021-06-18 17:00:00 Aurelio Schumacher spital HEPATITIS B SURFACE 2021-06-18 14:07:00 Kenneth [facility] ANTIGEN VANCOMYCIN LEVEL, RANDOM 2021-06-18 13:44:00 [facility] [place] [facility] HC COMPLETE BLD COUNT 2021-06-18 13:44:00 Endy [facility] W/AUTO DIFF BASIC METABOLIC PANEL 2021-06-18 11:27:00 [facility] ESTIMATED GFR 2021-06-18 11:27:00 Aurelio Schumacher Ho spital POC GLUCOSE 2021-06-18 08:07:00 Aurelio Schumacher [facility] HEMODIALYSIS 2021-06-18 06:16:53 Bill Cooper spital POC GLUCOSE 2021-06-18 01:26:00 Aurelio Schumacher [facility] POC GLUCOSE 2021-06-17 21:58:00 Aurelio Schumacher [facility] HEMODIALYSIS 2021-06-17 18:25:45 Bill Cooper spital POC GLUCOSE 2021-06-17 17:36:00 Aurelio Schumacher [facility] POC GLUCOSE 2021-06-17 13:51:00 Aurelio Schumacher Ho spital BASIC METABOLIC PANEL 2021-06-17 11:16:00 [facility] HC COMPLETE BLD COUNT 2021-06-17 11:16:00 [facility] W/AUTO DIFF ESTIMATED GFR 2021-06-17 11:16:00 [facility] POC GLUCOSE 2021-06-17 02:50:00 [facility] CONSULT TO OSTOMY CARE 2021-06-17 00:31:48 [facility] NURSE HC COMPLETE BLD COUNT 2021-06-16 23:31:00 [facility] W/AUTO DIFF BASIC METABOLIC PANEL 2021-06-16 23:31:00 [facility] ESTIMATED GFR 2021-06-16 23:31:00 [facility] POC GLUCOSE 2021-06-16 23:19:00 [facility] OR FL < 1 HOUR 2021-06-16 22:49:00 [facility] 2021-06-16 22:36:00 Kaci Diazlie [facility] FUNGUS CULTURE 2021-06-16 22:36:00 [facility] 2021-06-16 22:36:00 [facility] 2021-06-16 22:36:00 [facility] [place] AN ELECTIVE 2021-06-16 21:30:00 Jocelyne Zepeda [facility] SUPRAGLOTTIC AIRWAY AORTOGRAPHY, POSSIBLE 2021-06-16 21:17:00 Mando Diaz [facility] ANGIOPLASTY [facility] POC , URINE 2021-06-16 20:46:00 [facility] POTASSIUM LEVEL 2021-06-16 17:28:00 Isabell Dickerson [facility] Larry Romero POC GLUCOSE 2021-06-16 11:39:00 [facility] BASIC METABOLIC PANEL 2021-06-16 10:08:00 [facility] COM[facility]TE [facility]LD [facility] 2021-06-16 10:08:00 [facility] W/AUTO DIFF PROTHROMBIN TIME WITH INR 2021-06-16 10:08:00 [facility] PARTIAL THROMBOPLASTIN 2021-06-16 10:08:00 [facility] TIME (PTT) TYPE AND SCREEN 2021-06-16 10:08:00 [facility] ESTIMATED GFR 2021-06-16 10:08:00 [facility] POC GLUCOSE 2021-06-16 01:59:00 [facility] POC GLUCOSE 2021-06-15 22:58:00 [facility] COVID-19 QUALITATIVE 2021-06-15 19:29:00 Wander Elizabethmaria luisa [facility] RT-PCR POC GLUCOSE 2021-06-15 17:42:00 [facility] HEMODIALYSIS 2021-06-15 16:17:54 Delfino Akbar [facility] POC GLUCOSE 2021-06-15 15:41:00 [facility] POC GLUCOSE 2021-06-15 13:44:00 [facility] POC GLUCOSE 2021-06-15 13:00:00 [facility] ECG 12-LEAD 2021-06-15 12:48:21 Leni Barkertal HC COMPLETE BLD COUNT 2021-06-15 11:42:00 [facility] W/AUTO DIFF BASIC METABOLIC PANEL 2021-06-15 11:42:00 [facility] ESTIMATED GFR 2021-06-15 11:42:00 [facility] POC GLUCOSE 2021-06-15 01:31:00 [facility] US DUPLEX ARTERIAL LOWER 2021-06-14 21:55:[address] [facility] EXTREMITY RIGHT POC GLUCOSE 2021-06-14 21:51:00 [facility] POC GLUCOSE 2021-06-14 17:36:00 [facility] POC GLUCOSE 2021-06-14 13:30:00 [facility] POC GLUCOSE 2021-06-14 13:29:00 [facility] HC COMPLETE BLD COUNT 2021-06-14 10:13:00 [facility] W/AUTO DIFF BASIC METABOLIC PANEL 2021-06-14 10:13:00 [facility] ESTIMATED GFR 2021-06-14 10:13:00 [facility] POC GLUCOSE 2021-06-14 02:45:00 [facility] POC GLUCOSE 2021-06-13 21:47:00 [facility] POC GLUCOSE 2021-06-13 20:46:00 [facility] CBC WITH PLATELET AND 2021-06-13 16:10:00 [facility] DIFFERENTIAL COMPREHENSIVE METABOLIC 2021-06-13 16:10:00 [facility] PANEL ESTIMATED GFR 2021-06-13 16:10:00 [facility] HEMODIALYSIS 2021-06-13 15:26:35 [facility] POC GLUCOSE 2021-06-13 14:30:00 [facility] VANCOMYCIN LEVEL, RANDOM 2021-06-13 10:59:00 Juwan Krueger [facility] POC GLUCOSE 2021-06-13 10:40:00 [facility] POC GLUCOSE 2021-06-13 02:28:00 [facility] POC GLUCOSE 2021-06-13 00:16:00 [facility] POC GLUCOSE 2021-06-12 23:31:00 [facility] POC GLUCOSE 2021-06-12 23:14:00 [facility] POC GLUCOSE 2021-06-12 18:19:00 [facility] POC GLUCOSE 2021-06-12 14:37:00 [facility] POC GLUCOSE 2021-06-12 14:01:00 [facility] POC GLUCOSE 2021-06-12 03:03:00 [facility] 2021-06-12 00:53:00 [facility] 2021-06-11 18:08:00 Holden Nagel [facility] POC GLUCOSE 2021-06-11 13:39:00 Nagel, Holden [facility] [place] HEMODIALYSIS 2021-06-11 12:38:38 Naomie Dickelmo [facility] POC GLUCOSE 2021-06-11 02:01:00 Nagel, Holden [facility] [place] POC GLUCOSE 2021-06-10 22:15:00 Nagel, Holden [facility] [place] POC GLUCOSE 2021-06-10 17:39:00 Nagel, Holden [facility] [place] POC GLUCOSE 2021-06-10 16:05:00 Nagel, Holdentrip Whyte spital [place] TISSUE CULTURE 2021-06-10 15:08:00 Pati, Juwan Whyte spital GRAM STAIN 2021-06-10 15:08:00 Pati, Juwancaron Whyte spital ANAEROBIC CULTURE 2021-06-10 15:04:00 Pati [facility] FUNGUS CULTURE 2021-06-10 15:04:00 Pati, Juwan Whyte spital AEROBIC CULTURE 2021-06-10 15:04:00 Pati, Juwan Whyte spital [employer] CULTURE 2021-06-10 15:04:00 Pati, Juwan Whyte spital GRAM STAIN 2021-06-10 15:04:00 Pati, Juwan Whyte spital [employer] STAIN 2021-06-10 15:04:00 Pati, Juwan Whyte spital [place] AN ELECTIVE 2021-06-10 14:26:00 Sofi Roach spital SUPRAGLOTTIC AIRWAY Marquita INCISION AND DRAINAGE, 2021-06-10 14:26:00 Pati, [facility] LOWER EXTREMITY HC COMPLETE BLD COUNT 2021-06-10 10:20:00 [facility] W/AUTO DIFF BASIC METABOLIC PANEL 2021-06-10 10:20:00 [facility] PROTHROMBIN TIME WITH INR 2021-06-10 10:20:00 [facility] PARTIAL THROMBOPLASTIN 2021-06-10 10:20:00 [facility] TIME (PTT) TYPE AND SCREEN 2021-06-10 10:20:00 Robe, Holden Whyte Ho spital [place] ESTIMATED GFR 2021-06-10 10:20:00 Juwan Krueger Ho spital POC GLUCOSE 2021-06-10 03:11:00 Nagel, Holden Whyte Ho spital [place] POC GLUCOSE 2021-06-10 01:30:00 Nagel, Holden Ferrara spital [place] POC GLUCOSE 2021-06-09 22:22:00 Nagel, Holden Whyte Ho spital [place] POC GLUCOSE 2021-06-09 13:55:00 Nagel, Holedn Whyte Ho spital [place] HEMODIALYSIS 2021-06-09 13:20:01 [facility] VANCOMYCIN LEVEL, RANDOM 2021-06-09 11:46:00 [facility] POC GLUCOSE 2021-06-09 02:06:00 Robe, Holden Ferrara spital [place] POC GLUCOSE 2021-06-08 22:23:00 Nagel, Holden Whyte Ho spital [place] POC GLUCOSE 2021-06-08 17:53:00 Nagel, Holden Ferrara spital [place] HC COMPLETE BLD COUNT 2021-06-08 16:06:00 [facility] W/AUTO DIFF POC GLUCOSE 2021-06-08 13:56:00 Holden Nagel spital [place] URINE CULTURE 2021-06-08 03:56:00 Holden Nagel spital [place] URINALYSIS SCREEN AND 2021-06-08 03:32:00 [facility] MICROSCOPY, WITH REFLEX TO CULTURE POC GLUCOSE 2021-06-08 01:15:00 Robe, Holden Ferrara spital [place] POC GLUCOSE 2021-06-07 22:07:00 Nagel, Holden Ferrara spital [place] POC GLUCOSE 2021-06-07 18:01:00 Holden Nagel Ho spital [place] BASIC METABOLIC PANEL 2021-06-07 14:15:00 [facility] ESTIMATED GFR 2021-06-07 14:15:00 Nagel Holden Whyte Ho spital [place] POC GLUCOSE 2021-06-07 13:56:00 Nagel, Holden [facility] [place] POC GLUCOSE 2021-06-07 02:54:00 Nagel, Holden Whyte Ho spital [place] CT LOWER EXTREMITY W 2021-06-07 01:22:59 [facility] CONTRAST RIGHT POC GLUCOSE 2021-06-06 23:50:00 NagelHolden rodriguez Ho spital [place] POC GLUCOSE 2021-06-06 17:31:00 Nagel, Holden Whyte Ho spital [place] HEMODIALYSIS 2021-06-06 15:05:[address] [facility] POC GLUCOSE 2021-06-06 14:03:00 Holden Nagel Ho spital [place] HC COMPLETE BLD COUNT 2021-06-06 10:31:00 [facility] W/AUTO DIFF BASIC METABOLIC PANEL 2021-06-06 10:31:00 [facility] ESTIMATED GFR 2021-06-06 10:31:00 Holden Nagel Ho spital [place] POC GLUCOSE 2021-06-06 10:14:00 Holden Nagel Ho spital [place] POC GLUCOSE 2021-06-06 06:26:00 Holden Nagel Ho sp[facility] [place] POC GLUCOSE 2021-06-06 02:41:00 Holden Nagel Ho spital [place] POC GLUCOSE 2021-06-05 19:51:00 NagelHolden rodriguez Ho spital [place] BASIC METABOLIC PANEL 2021-06-05 18:06:00 [facility] HC COMPLETE BLD COUNT 2021-06-05 18:06:00 [facility] W/AUTO DIFF ESTIMATED GFR 2021-06-05 18:06:00 Holden Nagel Ho spital [place] POC GLUCOSE 2021-06-05 17:48:00 Holden Nagel Ho spital [place] ANAEROBIC CULTURE 2021-06-05 17:10:00 Pati, [facility] ANAEROBIC CULTURE 2021-06-05 16:59:00 Pati, [facility] FUNGUS CULTURE 2021-06-05 16:59:00 Pati, [facility] spital AEROBIC CULTURE 2021-06-05 16:59:00 Pati, [facility] spital AF[employer] CULTURE 2021-06-05 16:59:00 Pati, [facility] spital FUNGUS SMEAR 2021-06-05 16:59:00 Pati, [facility] spital AF[employer] STAIN 2021-06-05 16:59:00 Pati, [facility] spital [place] AN ELECTIVE 2021-06-05 16:52:08 Herrera [facility] SUPRAGLOTTIC AIRWAY TISSUE CULTURE 2021-06-05 16:50:00 [facility], [facility] 2021-06-05 16:50:00 [facility] DEBRIDEMENT, LOWER 2021-06-05 16:16:00 Pati [facility] EXTREMITY POC GLUCOSE 2021-06-05 13:32:00 Holden Nagel [facility] TROPONIN T 2021-06-05 10:58:[address] [facility] ospital ABO AND RH CONFIRMATION 2021-06-05 10:54:00 [facility] BASIC METABOLIC PANEL 2021-06-05 10:53:00 [facility] HC COMPLETE BLD COUNT 2021-06-05 10:53:00 [facility] W/AUTO DIFF ESTIMATED GFR 2021-06-05 10:53:00 Sivan Stewart [facility] PROTHROMBIN TIME WITH INR 2021-06-05 10:52:00 [facility] PARTIAL THROMBOPLASTIN 2021-06-05 10:52:00 [facility] TIME (PTT) HCG QUALITATIVE, SERUM 2021-06-05 10:52:00 Myron Fernandes [facility] SCREEN POC GLUCOSE 2021-06-05 09:40:00 Dhaliwal, Carlos [facility] [place] BLOOD CULTURE, AEROBIC & 2021-06-05 08:27:00 Carlos Dhaliwal [facility] ANAEROBIC [place] POC GLUCOSE 2021-06-05 07:42:00 Carlos Dhaliwal Ho spital [place] POC GLUCOSE 2021-06-05 06:57:00 Carlos Dhaliwal Ho spital [place] POC GLUCOSE 2021-06-05 06:10:00 NagelHolden Ho spital [place] BLOOD CULTURE, AEROBIC & 2021-06-05 04:31:00 Carlos Dhaliwal [facility] ANAEROBIC [place] POC GLUCOSE 2021-06-05 04:04:00 Carlos Dhaliwal Ho spital [place] POC GLUCOSE 2021-06-05 03:51:00 Carlos Dhaliwal [facility] sp[facility] [place] TYPE AND SCREEN 2021-06-05 03:40:00 Carlos Dhaliwal Ho spital [place] POC GLUCOSE 2021-06-05 03:05:00 Carlos Dhaliwal Ho spital [place] POC GLUCOSE 2021-06-05 02:23:00 Carlos Dhaliwal Ho spital [place] COVID-19 QUALITATIVE 2021-06-05 02:08:00 [facility] COMPLETE BLD COUNT 2021-06-05 01:24:00 SamantaSivan [facility] W/AUTO DIFF PROTHROMBIN TIME WITH INR 2021-06-05 01:24:00 [facility] PARTIAL THROMBOPLASTIN 2021-06-05 01:24:00 hollySivan [facility] TIME (PTT) COMPREHENSIVE METABOLIC 2021-06-05 01:24:00 hollySivan [facility] PANEL CREATINE KINASE, TOTAL 2021-06-05 01:24:00 [facility] NATRIURETIC PEPTIDE 2021-06-05 01:24:00 SamantaSivan [facility] TROPONIN T 2021-06-05 01:24:00 Char [facility]es [facility] [facility] ESTIMATED GFR 2021-06-05 01:24:00 Sivan Stewart [facility] ECG ED PRELIMINARY 2021-06-05 00:31:28 Sivan Stewart [facility] INTERPRETATION ECG 12-LEAD 2021-06-05 00:19:17 Carlos Dhaliwal Ho marilyn [facility] POC GLUCOSE 2021-05-25 18:04:00 Awe, Marilu Arvin [facility] POC GLUCOSE 2021-05-25 14:00:00 Awe, Marilu Arvin [facility] CBC HEMOGRAM 2021-05-25 10:12:00 Awe, Marilu Arvin [facility] BASIC METABOLIC PANEL 2021-05-25 10:12:00 Awe, [facility] ESTIMATED GFR 2021-05-25 10:12:00 Awe, Marilu Arvin [facility] POC GLUCOSE 2021-05-25 02:49:00 Awe, Marilu Arvin [facility] POC GLUCOSE 2021-05-24 23:33:00 Awe, Marilu Arvin [facility] POC GLUCOSE 2021-05-24 17:56:00 Awe, Marilu Arvin [facility] POC GLUCOSE 2021-05-24 13:59:00 Awe, Marilu Arvin [facility] CBC HEMOGRAM 2021-05-24 10:12:00 Awe, Marilu Arvin [facility] BASIC METABOLIC PANEL 2021-05-24 10:12:00 [facility] ESTIMATED GFR 2021-05-24 10:12:00 Awe, Marilu Arvin [facility] POC GLUCOSE 2021-05-24 09:59:00 Awe, Marilu Arvin [facility] POC GLUCOSE 2021-05-24 02:26:00 Awe, [facility] 2021-05-24 00:03:00 Awe, [facility] TRANSFUSE RED BLOOD CELLS 2021-05-23 22:30:00 [facility] TRANSFUSE RED BLOOD CELLS 2021-05-23 21:30:00 [facility] POC GLUCOSE 2021-05-23 19:03:00 Awe, [facility] TYPE AND SCREEN 2021-05-23 14:38:00 [facility] HC COMPLETE BLD COUNT 2021-05-23 14:38:00 [facility] W/AUTO DIFF PREPARE RBC 2021-05-23 14:38:[address] [facility] ospital PREPARE PLATELET PHERESIS 2021-05-23 14:38:00 [facility] POC GLUCOSE 2021-05-23 14:35:00 Awe, [facility] HEMODIALYSIS 2021-05-23 13:42:30 [facility] CBC HEMOGRAM 2021-05-23 12:31:00 Awe, [facility] BASIC METABOLIC PANEL 2021-05-23 12:31:00 Awe, [facility] ESTIMATED GFR 2021-05-23 12:31:00 Awe, [facility] POC GLUCOSE 2021-05-23 11:22:00 Awe, [facility] POC GLUCOSE 2021-05-23 03:30:00 [facility] 2021-05-22 23:20:00 Awe, [facility] POC GLUCOSE 2021-05-22 17:20:00 Awe, [facility] POC GLUCOSE 2021-05-22 13:27:00 Awe, [facility] BASIC METABOLIC PANEL 2021-05-22 12:31:00 Nikki Haynes [facility] Rahel MAGNESIUM LEVEL 2021-05-22 12:31:00 Nikki Haynes osgio Mcginnis CBC HEMOGRAM 2021-05-22 12:31:00 Nikki Haynes ospital Rahel ESTIMATED GFR 2021-05-22 12:31:00 Nikki Haynes ospital Rahel POC GLUCOSE 2021-05-22 10:54:00 Awe, [facility] POC GLUCOSE 2021-05-22 07:28:00 Awe, [facility] POC GLUCOSE 2021-05-22 01:11:00 Awe, [facility] HEPATITIS B SURFACE 2021-05-21 21:08:00 [facility] ANTIBODY HEMODIALYSIS 2021-05-21 20:57:40 [facility] POC GLUCOSE 2021-05-21 17:57:00 Awe, [facility] POC GLUCOSE 2021-05-21 13:55:00 Awe, [facility] POC GLUCOSE 2021-05-21 10:41:00 Kye Barber COVID-19 ANTI-SPIKE IGG 2021-05-21 07:43:00 Ishan [facility] ANTIBODY TITER Esa BASIC METABOLIC PANEL 2021-05-21 07:43:00 [facility] Ra[facility] MAGNESIUM LEVEL 2021-05-21 07:43:00 Nikki Haynes ospigabe Mcginnis CBC HEMOGRAM 2021-05-21 07:43:00 Nikki Haynes ospigabe Mcginnis COVID-19 SEROLOGY PATIENT 2021-05-21 07:43:00 Clyde Olmstead [facility] SURVEILLANCE Esa ESTIMATED GFR 2021-05-21 07:43:00 Andre Sofia [place] LACTIC ACID LEVEL 2021-05-21 07:43:00 Leodan Stevenson [facility] POC GLUCOSE 2021-05-21 06:35:00 Kye Barber HC COMPLETE BLD COUNT 2021-05-21 02:49:00 [facility] W/AUTO DIFF BASIC METABOLIC PANEL 2021-05-21 02:49:00 [facility] LACTIC ACID LEVEL 2021-05-21 02:49:00 [facility] OSMOLALITY, SERUM 2021-05-21 02:49:00 [facility] BETA HYDROXYBUTYRATE 2021-05-21 02:49:00 [facility] PROCALCITONIN 2021-05-21 02:49:00 [facility] ESTIMATED GFR 2021-05-21 02:49:00 [facility] POC GLUCOSE 2021-05-21 02:34:00 Kye Barber spital HC COMPLETE BLD COUNT 2021-05-21 00:28:00 Char Viramontes [facility] W/AUTO DIFF POC GLUCOSE 2021-05-20 23:57:00 Kye Barber spital BASIC METABOLIC PANEL 2021-05-20 23:20:00 Andre Sofia [facility] [place] LACTIC ACID LEVEL 2021-05-20 23:20:00 Kimberlyn [facility] [place] ESTIMATED GFR 2021-05-20 23:20:00 Andre [...] [place] TRANSFUSE PLATELET 2021-05-20 15:52:00 Wander [facility] PHERESIS BASIC METABOLIC PANEL 2021-05-20 15:25:00 [facility] [place] ESTIMATED GFR 2021-05-20 15:25:00 Andre Sofia spital [place] POC GLUCOSE 2021-05-20 14:48:00 Kye Barber spital HEMODIALYSIS 2021-05-20 11:31:20 [facility] POC GLUCOSE 2021-05-20 10:44:00 Kye Barber spital HEPATITIS B SURFACE 2021-05-20 08:49:00 [facility] ANTIGEN HEPATITIS B SURFACE AB, 2021-05-20 08:49:00 [facility] QUANTITATIVE HC COMPLETE BLD COUNT 2021-05-20 08:25:00 [facility] W/AUTO DIFF BASIC METABOLIC PANEL 2021-05-20 08:25:00 [facility] MAGNESIUM LEVEL 2021-05-20 08:25:[address] [facility] ospital PHOSPHORUS LEVEL 2021-05-20 08:25:[address] [facility] PROTHROMBIN TIME WITH INR 2021-05-20 08:25:00 Leodan Stevenson [facility] ESTIMATED GFR 2021-05-20 08:25:00 Juwan Krueger spital HEMOGLOBIN A1C 2021-05-20 08:25:00 Nikki Haynes H ospital Rahel POC GLUCOSE 2021-05-20 06:34:00 Kye Barber spital ARTERIAL BLOOD GAS 2021-05-20 04:36:00 [facility] 12-[facility]AD 2021-05-20 03:42:28 Graham [facility] spital PROTHROMBIN TIME WITH INR 2021-05-20 02:54:00 [facility] HC COMPLETE BLD COUNT 2021-05-20 02:54:[address] [facility] [place] [place] W/AUTO DIFF BASIC METABOLIC PANEL 2021-05-20 02:54:[address] [facility] [place] [place] LACTIC ACID LEVEL 2021-05-20 02:54:00 Graham [facility] VENOUS BLOOD GAS 2021-05-20 02:54:00 Graham [facility] Claudia ospital ESTIMATED GFR 2021-05-20 02:54:00 Graham [facility] Ho spital POC GLUCOSE 2021-05-20 02:54:00 Kye Barber spital XR CHEST 1 VW PORTABLE 2021-05-20 02:51:[facility] [place] [facility] 2021-05-20 01:30:15 Juwan Krueger spital TRANSFUSE RED BLOOD CELLS 2021-05-20 00:59:00 Juwan Krueger [facility] [place] AN ELECTIVE 2021-05-20 00:53:01 Sukhjinder Medina spital SUPRAGLOTTIC AIRWAY [place] INCISION AND DRAINAGE, 2021-05-20 00:45:00 Juwan Krueger [facility] HEMATOMA HC COMPLETE BLD COUNT 2021-05-19 22:13:00 [facility] W/AUTO DIFF BASIC METABOLIC PANEL 2021-05-19 22:13:00 [facility] PROTHROMBIN TIME WITH INR 2021-05-19 22:13:00 [facility] PARTIAL THROMBOPLASTIN 2021-05-19 22:13:00 [facility] TIME (PTT) MAGNESIUM LEVEL 2021-05-19 22:13:[address] [facility] ospital ESTIMATED GFR 2021-05-19 22:13:00 Juwan Krueger spital POC GLUCOSE 2021-05-19 22:00:00 [facility] SURGICAL PATHOLOGY REQUEST 2021-05-19 21:47:00 Errol [facility] POC GLUCOSE 2021-05-19 21:17:00 Juwan Krueger spital ACTIVATED CLOTTING TIME 2021-05-19 19:12:00 Kye Barber [facility] [place] AN ELECTIVE 2021-05-19 18:11:04 Sukhjinder Medina spital SUPRAGLOTTIC AIRWAY [place] LOWER EXTREMITY 2021-05-19 17:59:00 Juwan Krueger spital ANGIOGRAM,POSSIBLE ANGIOPLASTY,POSSIBLE STENT XR CHEST 1 VW PORTABLE 2021-05-19 15:47:37 Juwan Krueger [facility] ESTIMATED GFR 2021-05-19 14:34:00 Juwan Krueger spital POC PANEL 2021-05-19 14:34:00 Juwan Krueger spital TYPE AND SCREEN 2021-05-19 14:05:00 Isabell Dickerson marilyn Romero PREPARE RBC 2021-05-19 14:05:00 [facility] PREPARE FRESH FROZEN 2021-05-19 14:05:00 [facility] PLASMA PREPARE PLATELET PHERESIS 2021-05-19 14:05:00 Char Viramontes [facility] BASIC METABOLIC PANEL 2021-05-19 14:00:00 [facility] Romero PROTHROMBIN TIME WITH INR 2021-05-19 14:00:00 Jayla [facility] Larry Romero HC COMPLETE BLD COUNT 2021-05-19 14:00:00 [facility] W/AUTO DIFF Larry Romero ABO AND RH CONFIRMATION 2021-05-19 14:00:00 Pati [facility] ESTIMATED GFR 2021-05-19 14:00:00 Isabell Dickerson COVID-19 QUALITATIVE 2021-05-19 12:40:00 Juwan Krueger [facility] RT-PCR MEDICAL RELEASE/CLEARANCE 2021-05-13 06:01:00 Doctor Unassigned, [facility] FORMS [place] [facility] US DUPLEX ARTERIAL LOWER 2021-05-12 15:21:31 Juwan Krueger [facility] EXTREMITY BILATERAL Emergency department visit 2013-04-15 05:00:00 [facility] for the evaluation and management of a patient, which requires these 3 kamara components within the constraints imposed by the urgency of the patient's clinical condition and/or mental status: A comprehensive history; A comprehensi Injection or Infusion of 2013-04-15 05:00:00 Mem orial [place] Other Therapeutic or Prophylactic Substance Intravenous infusion, 2013-04-15 05:00:00 Memori al [place] hydration; each additional hour (List separately in addition to code for primary procedure) Therapeutic, prophylactic, 2013-04-15 05:00:00 [facility] Vin or diagnostic injection (specify substance or drug); each additional sequential intravenous push of a new substance/drug (List separately in addition to code for primary procedure) Therapeutic, prophylactic, 2013-04-15 05:00:00 [facility] [place] or diagnostic injection (specify substance or drug); intravenous push, single or initial substance/drug Eye procedure [facility] Colon[facility] EGD [facility] (esophagogastroduodenoscop y) gastric outlet reduction section Shahid Joseph n Tubal ligation [facility] 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 Plan of Care Planned Activity Planned Date Details Comments Source Future Scheduled 2021-07-22 COVID-19 VACCINE [facility] Test 13:11:04 (1) [code = COVID-19 VACCINE (1)] Future Scheduled 2021-07-22 Hepatitis C [facility] Test 13:11:04 screening (procedure) [code = 389531590] Future Scheduled 2021-07-22 [facility] 13:11:04 malignant neoplasm of cervix (procedure) [code = 190962357] Future Scheduled 2021-07-22 [facility]INE [facility] 13:11:04 [code = INFLUENZA VACCINE] Encounters Start End Encounter Admission Attending Care Care Encounter Source Date/Time Date/Time Type Type Clinicians Facility Department ID 2021-07-22 Outpatient nullFlavo [facility] [id number] Memoria 00:10:30 r Medical 05 l [facility] 2021-07-22 Preadmit nullFlavo [id number] Memoria 00:10:30 r [facility] 2021-07-22 Outpatient nullFlavo [facility] [id number] Memoria 00:10:30 r Medical 06 l [facility] 2021-08-20 2021-08-20 Outpatient [facility]T [facility] [id number] Devoted 12:30:00 12:30:00 0302 Medica l [facility] 2021-07-08 2021-07-08 Office Ann, 1.2.840.1 [id number] Methodi 12:54:05 14:25:36 Visit Bessie 19719.1.[address] [place] 3.430.2.7 Hosp jo-ann .3.836620 l .8 2021-07-08 2021-07-08 Telephone Anthony, 1.2.840.1 [id number] Methodi 00:00:00 00:00:[address] 3.430.2.7 Hospit a .3.047301 l .8 2021-07-08 2021-07-08 Travel 1.2.840.1 1.2.875.603 2670 [id number] Methodi 00:00:00 00:00:[address] 3.430.2.7 0.2.7.3.698 Ho spita .3.354985 084.8 l .8 2021-07-03 2021-07-03 Telephone Ann, 1.2.840.1 [id number] [id number] Methodi 00:00:00 00:00:[address] [place] 3.430.2.7 Hosp jo-ann .3.557756 l .8 2021-06-24 2021-06-24 Outpatient Deshazo_T [facility] [id number] Devoted 05:31:00 05:31:00 0104 Medica l Group 2021-06-23 2021-06-23 Telephone Anthony, 1.2.840.1 [id number] [id number] Methodi 00:00:00 00:00:[address] 3.430.2.7 Hospit a .3.976821 l .8 2021-06-04 2021-06-18 Hospital Sivan Stewart 1.2.840.1 [id number] Methodi 18:20:00 18:13:00 Encounter Carlos Dhaliwal 73856.1.[address] [facility]el[place]enra 3.430.2.7 Hospita Shanda Mckenzie Kalen .3.189846 l Aurelio Schumacher .8 2021-06-16 2021-06-16 Anesthesia Yousif, 1.2.840.1 [id number] Methodi 23:59:59 23:59:59 Event Alesia Coelho 93739.1.[address] 3.430.2.7 Hospit a .3.826818 l .8 2021-06-16 2021-06-16 Surgery Diaz, 1.2.840.1 [id number] Methodi 13:30:00 17:45:[address] [facility] 3.430.2.7 Hosp jo-ann .3.362236 l .8 2021-06-16 2021-06-16 Anesthesia Jose Carlos, 1.2.840.1 [id number] 073 [id number] Methodi 15:19:00 17:19:00 Event Sethlachelleayo 38684.1.1 309 s t V. 3.430.2.7 Hospit a .3.588226 l .8 2021-06-10 2021-06-10 Surgery PatiJuwan 1.2.840.1 [id number] Methodi 08:00:00 10:30:[address] 3.430.2.7 Hospit a .3.842961 l .8 2021-06-10 2021-06-10 Anesthesia Doc, 1.2.840.1 [id number] Methodi 08:26:00 09:40:00 Event Sofi 55805.1.[address] Marquita 3.430.2.7 Hosp jo-ann .3.462079 l .8 2021-06-09 2021-06-09 Prep for Robert, 1.2.840.1 [id number] [id number] Methodi 00:00:00 00:00:00 Surgery Gayle 13748.1.[address] 3.430.2.7 Hospit a .3.888158 l .8 2021-06-09 2021-06-09 Prep for Robert, 1.2.840.1 [id number] Methodi 00:00:00 00:00:00 Surgery Gayle 18230.1.[address] 3.430.2.7 Hospit a .3.725649 l .8 2021-06-05 2021-06-05 Anesthesia Frankie Chowdhury 1.2.840.1 [id number] Methodi 10:16:00 11:41:00 Event Chandler Silverman 36516.1.[address] 3.430.2.7 Hospit a .3.358442 l .8 2021-06-05 2021-06-05 Surgery Juwan Krueger 1.2.840.1 [id number] Methodi 09:30:00 11:05:[address] 3.430.2.7 Hospit a .3.483480 l .8 2021-06-03 2021-06-03 Prep for Anthony, 1.2.840.1 [id number] Methodi 00:00:00 00:00:00 Surgery Forrest 94200.1.[address] 3.430.2.7 Hospit a .3.169558 l .8 2021-06-03 2021-06-03 Telephone Adelita, 1.2.840.1 [id number] Methodi 00:00:00 00:00:00 Crysandria 53099.1.1 218 s t 3.430.2.7 Hospit a .3.701476 l .8 2021-05-28 2021-05-28 Outpatient Adams_R [facility] [id number] 021 Devoted 05:00:00 05:00:00 1208 Medica l Group 2021-05-27 2021-05-27 Patient Tam, 1.2.840.1 [id number] Methodi 00:00:00 00:00:00 Outreach Maria M 33747.1.[address] 3.430.2.7 Hospit a .3.812612 l .8 2021-05-27 2021-05-27 Travel 1.2.840.1 1.2.593.545 3628 [id number] Methodi 00:00:00 00:00:[address] 3.430.2.7 0.2.7.3.698 Ho spita .3.614602 084.8 l .8 2021-05-27 2021-05-27 Orders Ramana, 1.2.840.1 [id number] 2099 [id number] Methodi 00:00:00 00:00:00 Only Anila 65714.1.[address] 3.430.2.7 Hospit a .3.917782 l .8 2021-05-26 2021-05-26 Outpatient Adams_R DMG G 34584-1 021 Devoted 03:30:00 03:30:00 1206 Medica l Group 2021-05-26 2021-05-26 Telephone Anthony, 1.2.840.1 [id number] 2099 [id number] Methodi 00:00:00 00:00:[address] 3.430.2.7 Hospit a .3.814027 l .8 2021-05-19 2021-05-25 Juwan Mendez 1.2.840.1 [id number] 2099 [id number] Methodi 06:00:00 15:59:00 Kye Peres 13014.1.[address] Marilu Kochun 3.430.2.7 Hospita .3.593963 l .8 2021-05-21 2021-05-21 [facility] [id number] 021 Devoted 03:30:00 03:30:00 1201 Medica l Group 2021-05-19 2021-05-19 Anesthesia Adam, 1.2.840.1 [id number] Methodi 18:45:00 20:31:00 Event Sukhjinder 72095.1.[address] Kendall 3.430.2.7 Hospit a .3.739023 l .8 2021-05-19 2021-05-19 Surgery Juwan Krueger 1.2.840.1 [id number] 91 Methodi 18:50:00 19:55:[address] 3.430.2.7 Hospit a .3.553823 l .8 2021-05-19 2021-05-19 Anesthesia Sukhjinder Medina 1.2.840.1 [id number] Methodi 12:00:00 15:14:00 Event Hanane Ledezma 19857.1.[address] 3.430.2.7 Hospit a .3.898612 l .8 2021-05-19 2021-05-19 Surgery Juwan Krueger 1.2.840.1 [id number] Methodi 12:05:00 14:45:[address] 3.430.2.7 Hospit a .3.373462 l .8 2021-05-19 2021-05-19 Travel 1.2.840.1 1.2.268.574 3276 [id number] Methodi 00:00:00 00:00:[address] 3.430.2.7 0.2.7.3.698 Ho spita .3.325962 084.8 l .8 2021-05-14 2021-05-14 Telephone Corin 1.2.840.1 [id number] Methodi 00:00:00 00:00:[address] 3.430.2.7 Hospit a .3.774546 l .8 2021-05-14 2021-05-14 Prep for Anthony, 1.2.840.1 [id number] Methodi 00:00:00 00:00:00 Surgery Forrest 81330.1.[address] 3.430.2.7 Hospit a .3.999480 l .8 2021-05-13 2021-05-13 Orders Doctor JOANNA 1.2.840.114 [id number] Univers 00:00:00 00:00:00 Only Unassigned, MAGDALENO 350.1.13.10 ity of [place] [facility] 4.2.7.2.686 Baljinder as [id number] [address] 2021-05-12 2021-05-12 Office PatiJuwan 1.2.840.1 [id number] Methodi 09:02:46 09:32:[address] 3.430.2.7 Hospit a .3.839194 l .8 2021-05-12 2021-05-12 Telephone Anthony, 1.2.840.1 [id number] 2099 [id number] Methodi 00:00:00 00:00:[address] 3.430.2.7 Hospit a .3.930026 l .8 2021-05-12 2021-05-12 Travel 1.2.840.1 1.2.980.077 7038 096964 Methodi 00:00:00 00:00:[address] 3.430.2.7 0.2.7.3.698 Ho spita .3.123616 084.8 l .8 2021-05-08 2021-05-08 Orders Anthony, 1.2.840.1 [id number] 4346 Methodi 00:00:00 00:00:00 Only Forrest 39503.1.[address] 3.430.2.7 Hospit a .3.863442 l .8 2021-05-08 2021-05-08 Telephone Boles, 1.2.840.1 [id number] Methodi 00:00:00 00:00:[address] 3.430.2.7 Hospit a .3.655077 l .8 2021-05-05 2021-05-05 Office Juwan Krueger 1.2.840.1 [id number] 75569 Methodi 14:18:48 15:41:[address] 3.430.2.7 Hospit a .3.347720 l .8 2021-05-05 2021-05-05 Travel 1.2.840.1 1.2.788.894 5354 390563 Methodi 00:00:00 00:00:[address] 3.430.2.7 0.2.7.3.698 Ho spita .3.206918 084.8 l .8 2021-05-01 2021-05-01 Peg Diaz, 1.2.840.1 [id number] 2100 [id number] Methodi 00:00:00 00:00:[address] [facility] 3.430.2.7 Hosp jo-ann .3.499784 l .8 2021-03-21 2021-03-21 Outpatient DMG DREWG 76840-9 021 Devoted 08:01:00 08:01:00 1001 Medica l Group 2021-01-21 2021-01-29 Inpatient [facility] [id number] [facility] 15:50:00 20:14:[address] 2021-01-21 2021-01-29 Inpatient U AYDEE, [facility] CAR 7512 [facility] 10:50:00 15:14:00 AKUA 2021-01-24 2021-01-24 Outpatient DMG DREWG [id number] 021 [facility]oted 08:00:00 08:00:00 0806 Medica l Group 2021-01-03 2021-01-03 Office DOMINIQUE Diane 1.2.840.114 [id number] 07:44:43 09:30:54 Visit Alexandr ALTMAN 350.1.13.58 MEDICAL 9.2.7.2.686 [facility] [id number] 1 2021-01-03 2021-01-03 Office DOMINIQUE Diane 1.2.840.[id number] 07:44:43 09:30:54 Visit Alexandr ALTMAN 350.1.13.58 H ealt MEDICAL 9.2.7.2.686 [facility] [id number] 1 2020-12-24 2020-12-25 Outpatient nullFlavo Dig[facility] [id number] Memoria 15:32:00 04:59:00 r Disease 11 l Center [place] 2020-12-24 2020-12-24 Outpatient PHILIPPE, [facility] 7511 [facility] 10:32:00 23:59:00 HUI 2020-10-27 2020-10-27 Letter Lamin [facility] 1.2.840.114 [id number] 00:00:00 00:00:00 (Out) Oz Lehman 350.1.13.10 [place] 4.2.7.2.686 Professio [phone] nal 059 [facility] 2020-10-24 2020-10-24 Orders Doctor JOANNA 1.2.840.114 [id number] 00:00:00 00:00:00 Only Unassigned, MAGDALENO 350.1.13.10 [place] [facility] 4.2.7.2.686 [id number] 2020-09-24 2020-09-24 Refill Carlos [facility] 1.2.840.114 [id number] 00:00:00 00:00:00 Jose Luis Lehman 350.1.13.10 [place] 4.2.7.2.686 Professio [id number] nal 220 [facility] 2020-09-09 2020-09-09 Patient Daniel [facility] 1.2.840.114 [id number] 00:00:00 00:00:00 Outreach Earl SMITH 350.1.13.10 Manuel [facility] 4.2.7.2.686 ANNABEL [id number] 2020-07-23 2020-07-23 Office Black [facility] 1.2.342.255 [id number] [id number] 13:31:20 14:37:36 Visit Deja PRIMARY 350.1.13.10 A [facility] 4.2.7.2.686 PAVHARISHON [id number] 198 2020-06-27 2020-06-27 Office Lamin [facility] 1.2.840.114 [id number] Univers 10:05:43 11:00:00 Visit Oz LEHMAN [id number] itcaron [facility] [id number] Amisha lombardo DAVIS [id number] Ia dical NAL 059 [facility] 2020-06-27 2020-06-27 Outpatient R LAMIN [facility] [id number] Univers 09:30:00 11:00:00 SENDIL ity [facility] 2020-01-25 2020-01-31 Inpatient 1 ChivoJose husseinRei [facility] [id number] 21:31:00 18:15:00 Rei Waldron [facility] 2016-07-24 2016-07-30 Inpatient [facility] [id number] Memoria 02:04:00 16:20:[address] 2016-06-10 2016-06-15 Inpatient [facility] [id number] Memoria 16:02:00 18:23:[address] 2014-06-26 2014-06-26 EC [facility] [id number] Memoria 05:25:00 15:14:00 Emergency r [place] 08 [facility] 2013-04-14 2013-04-15 Emergency nullFlavo [id number] Memoria 21:04:00 01:45:[address] 2012-03-14 2012-03-14 Emergency nullFlavo [id number] Memoria 16:32:00 22:39:00 r [facility] 04 [facility] 2011-11-28 2011-11-30 OU nullFlavo [facility] [id number] Memoria 12:16:00 20:40:00 r [facility] 03 [facility] 2011-09-18 2011-09-18 Emergency nullFlavo [facility] [id number] Memoria 08:23:00 13:34:00 r Medical 02 [facility] 2011-09-01 2011-09-09 Inpatient nullFlavo [facility] [id number] Memoria 01:40:00 15:00:00 [facility] 2011-08-19 2011-08-23 Inpatient nullFlavo [facility] [id number] Memoria 14:25:00 15:28:00 [facility] Results Test Description Test Time Test Comments Results Result Comments Source AFB culture 2021-07-22 18:13:19 Test Item Value Reference Range Interpretation Comme nts AFB culture isolate No growth after 6 weeks of Specimen InformationSpecimen (test code = 543-9) incubation. Source: DrainageSpecimen Site: Thigh: infected wound right [id number] 18:15:13 Test Item Value Reference Range Interpretation Comments Fungus culture No growth Specimen isolate (test after 4 weeks InformationSp ecimen code = 1441) of Source: TissueS pecimen incubation. [facility] nxzbffo9897-68-96 14:31:13 Test Item Value Reference Range Interpretation Comments Anaerobic No anaerobic Specimen culture isolate organisms InformationS pecimen (test code = isolated. Source: TissueS pecimen 552) [facility] [id number] 16:51:58 Test Item Value Reference Range Interpretation Comments Gram stain No WBC's or Specimen isolate (test organisms seen. Information Specimen code = 1469) Source: TissueS pecimen [facility] tvgrgwo9255-41-87 16:51:58 Test Item Value Reference Range Interpretation Comments Aerobic culture No growth Specimen isolate (test after 3 days. InformationSp ecimen code = 498) Source: TissueS pecimen [facility] zzprt6228-08-47 16:51:58 Test Item Value Reference Range Interpretation Comments Fungus smear No fungi Specimen (test code = observed. InformationSpec imen Source: 1443) TissueSpecimen Site: [facility] wxjlzht4389-75-99 17:00:57 Test Item Value Reference Range Interpretation Comments POC glucose (test code 79 mg/dL 65-99 Opera tor Name: Eboni = 86109-9) AmiDevice ID: [id number] [facility] , [id number] 20:46:00 Test Item Value Reference Range Interpretation Comments test urine, POC (test Negative code = 7223136) Internal QC (test code = 257) QC acceptable [facility] 12 [id number] 17:27:33 Test Item Value Reference Range Interpretation Comments Ventricular rate (test code = 253) Atrial rate (test code = 255) OK interval (test code = 266) QRSD interval [...] of 04-JUN-2021 18:19,-No significant change was found- [facility] and picldl2492-88-32 11:06:00 Test Item Value Reference Range Interpretation Comments ABO grouping (test code = 883-9) B Rh type (test code = 75994-9) POS Antibody screen (gel) (test code = NEG 890-4) [facility] HospitalTissue pdsdqyw2596-32-47 20:18:46 Test Item Value Reference Range Interpretation Comments Tissue culture No growth Specimen isolate (test after 3 days. InformationSp ecimen code = 01229-6) Source: Tiss ueSpecimen Site: Thigh: in fected right thigh wou nd [facility] HospitalAFB mxoak9466-18-08 20:24:42 Test Item Value Reference Range Interpretation Comments AFB stain No acid fast Specimen (test code = bacilli (AFB) InformationSpe cimen 676-7) seen. Source: Drainag eSpecimen Site: Thigh: in fected wound right th igh [facility] HospitalU[facility] mqxmrjt9229-65-76 09:49:57 Test Item Value Reference Range Interpretation Comments Urine culture No growth Specimen isolate (test after 24 InformationSpe cimen code = 81452-5) hours Source: Urin eSpecimen Site: Clean cat ch [facility] HospitalABO and Rh wlfokiefxnna6405-23-57 12:52:00 Test Item Value Reference Range Interpretation Comments ABO grouping (test code = 883-9) B Rh type (test code = 40952-2) POS [facility] HospitalPrepar RBC, 1 Vvdta7880-75-11 22:22:00 Test Item Value Reference Range Interpretation Comments Product name (test code Red Blood Cells -1, = 25) Leukored Unit number (test code = [id number]) Product code (test code Z2211A60 = 3092) Dispense status (test Transfused code = 24) Blood expiration date (test code = 302) Blood type code (test code = 308) Blood type (test code = B POSITIVE 1314) Compatibility (test code Compatible = 6400) [facility] mzsrpex8457-49-20 20:10:46 Test Item Value Reference Range Interpretation Comments Case number (test code = [id number]) Surgical pathology See link below for report (test code = PDF Lab Report 2473) Result status (test code This is Final Report = [id number]) for [id number] [facility]heres[facility], 1 Ypyvm2041-70-31 15:35:00 Test Item Value Reference Range Interpretation Comments Product name (test code Bogdan Fraire LR, Path = 25) Red cont3 Unit number (test code = [id number]) Product code (test code Y5977L08 = 3092) Dispense status (test Transfused code = 24) Blood expiration date (test code = 302) Blood type code (test code = 308) Blood type (test code = O POSITIVE 1314) Compatibility (test code Not required = 6400) [facility] HospitalActivated clotting hatx8448-51-58 12:13:24 Test Item Value Reference Range Interpretation Comments Activated clotting time See_Comment H Oper ator Name: (test code = 5298) Bryn Morales ID: [id number] [Automated mess age] The system [employer] generated this result transmitted ref erence range: 96 - 152 sec. The reference r leo was not used to interpret this result as normal/abnor mal. Lab Interpretation (test Abnormal code = 35744-9) [facility] HospitalPOC [id number] 14:37:48 Test Item Value Reference Range Interpretation Comments POC sodium (test code = 138 mmol/L 050-965 7608-0) POC potassium (test 5.5 mmol/L 3.5-5.0 H code = 6298-4) POC glucose (test code 295 mg/dL 65-99 H = 2339-0) POC creatinine (test 5.3 mg/dl 0.5-0.9 H Operato r Name: Pat code = 97145-2) [place] ID: [id number] POC hemoglobin (test 18.4 g/dL 12.0-16.0 H code = 718-7) POC hematocrit (test 54 % 37-47 H code = 4544-3) Lab Interpretation Abnormal (test code = 08332-2) [place] 962561-08-11 08:17:00 Test Item Value Reference Range Interpretation Comments Glucose Lvl (test code = Glucose Lvl) 94 70-99 [place] [address]-08-11 08:17:00 Test Item Value Reference Range Interpretation Comments BUN (test code = BUN) 27 7-22 [place] 025701-08-11 08:17:00 Test Item Value Reference Range Interpretation Comments Creatinine Lvl (test code = Creatinine 4.95 0.50-1.40 Lvl) [place] 025701-08-11 08:17:00 Test Item Value Reference Range Interpretation Comments Sodium Lvl (test code = Sodium Lvl) 136 135-145 [place] 025701-08-11 08:17:00 Test Item Value Reference Range Interpretation Comments Potassium Lvl (test code = Potassium 3.9 3.5-5.1 Lvl) [place] 025701-08-11 08:17:00 Test Item Value Reference Range Interpretation Comments Chloride Lvl (test code = Chloride Lvl) 103 95-109 [place] 025701-08-11 08:17:00 Test Item Value Reference Range Interpretation Comments CO2 (test code = CO2) 30 24-32 [place] 025701-08-11 08:17:00 Test Item Value Reference Range Interpretation Comments AGAP (test code = AGAP) 6.9 10.0-20.0 [place] 025701-08-11 08:17:00 Test Item Value Reference Range Interpretation Comments Calcium Lvl (test code = Calcium Lvl) 8.5 8.5-10.5 [facility]2021-08-11 08:17:00 Test Item Value Reference Range Interpretation Comments eGFR (test code = eGFR) 10 [facility]2021-08-11 08:17:00 Test Item Value Reference Range Interpretation Comments Phosphorus (test code = Phosphorus) 3.0 2.5-4.5 [facility]2021-08-11 08:17:00 Test Item Value Reference Range Interpretation Comments Magnesium Lvl (test code = Magnesium 2.4 1.8-2.4 Lvl) [facility] HospitalNukmdizEDEGVVNYZT1444-47-85 08:17:00 Test Item Value Reference Range Interpretation Comments WBC (test code = WBC) 2.3 3.7-10.4 [place] 066171-08-11 08:17:00 Test Item Value Reference Range Interpretation Comments RBC (test code = RBC) 2.65 4.20-5.40 [facility] HospitalVeenjfxHCRFXZSRRY9566-82-14 08:17:00 Test Item Value Reference Range Interpretation Comments Hgb (test code = Hgb) 7.9 12.0-16.0 [place] 066171-08-11 08:17:00 Test Item Value Reference Range Interpretation Comments Hct (test code = Hct) 24.0 36.0-48.0 [facility] HospitalSdyijnsLGNLIOYWUX2519-97-39 08:17:00 Test Item Value Reference Range Interpretation Comments MCV (test code = MCV) 90.6 80.0-98.0 [facility] HospitalNidsodeECZEJOFKUZ6436-27-71 08:17:00 Test Item Value Reference Range Interpretation Comments MCH (test code = MCH) 29.7 pg 27.0-31.0 [place] 066171-08-11 08:17:00 Test Item Value Reference Range Interpretation Comments MCHC (test code = MCHC) 32.7 32.0-36.0 [place] 066171-08-11 08:17:00 Test Item Value Reference Range Interpretation Comments RDW (test code = RDW) 19.1 11.5-14.5 [place] 066171-08-11 08:17:00 Test Item Value Reference Range Interpretation Comments Platelet (test code = Platelet) 71 133-450 [facility] HospitalXnboeleWIKDYBJTSV8793-43-97 08:17:00 Test Item Value Reference Range Interpretation Comments MPV (test code = MPV) 9.9 7.4-10.4 [place] 066171-08-11 08:17:00 Test Item Value Reference Range Interpretation Comments Segs (test code = Segs) 56.1 45.0-75.0 [place] 066171-08-11 08:17:00 Test Item Value Reference Range Interpretation Comments Lymphocytes (test code = Lymphocytes) 28.9 20.0-40.0 [place] 066171-08-11 08:17:00 Test Item Value Reference Range Interpretation Comments Monocytes (test code = Monocytes) 8.1 2.0-12.0 [place] 066171-08-11 08:17:00 Test Item Value Reference Range Interpretation Comments Eosinophils (test code = 5.9 See_Comment [A utomated message] The Eosinophils) system which ge nerated this result tra nsmitted reference range : <=4.0. The reference r leo was not used to int erpret this result as normal/abnormal . [place] 066171-08-11 08:17:00 Test Item Value Reference Range Interpretation Comments Basophils (test code = 1.0 See_Comment [Aut omated message] The Basophils) system which ge nerated this result tra nsmitted reference range : <=1.0. The reference r leo was not used to int erpret this result as normal/abnormal . [facility] HospitalVwjgwfzLGFZPXEKVB4306-53-61 08:17:00 Test Item Value Reference Range Interpretation Comments Neutrophils # (test code = Neutrophils 1.3 1.5-8.1 #) [place] 066171-08-11 08:17:00 Test Item Value Reference Range Interpretation Comments Lymphocytes # (test code = Lymphocytes 0.7 1.0-5.5 #) [place] 066171-08-11 08:17:00 Test Item Value Reference Range Interpretation Comments Monocytes # (test code 0.2 See_Comment [Aut omated message] The = Monocytes #) system which generated this result tra nsmitted reference range : <=0.8. The reference r leo was not used to int erpret this result as normal/abnormal . [place] 066171-08-11 08:17:00 Test Item Value Reference Range Interpretation Comments Eosinophils # (test code 0.1 See_Comment [A utomated message] The = Eosinophils #) system whic h generated this result tra nsmitted reference range : <=0.5. The reference r leo was not used to int erpret this result as normal/abnormal . [facility]2021-08-10 09:30:00 Test Item Value Reference Range Interpretation Comments Glucose Lvl (test code = Glucose Lvl) 61 70-99 [place] 025701-08-10 09:30:00 Test Item Value Reference Range Interpretation Comments BUN (test code = BUN) 13 7-22 [place] 025701-08-10 09:30:00 Test Item Value Reference Range Interpretation Comments Creatinine Lvl (test code = Creatinine 3.71 0.50-1.40 Lvl) [place] 025701-08-10 09:30:00 Test Item Value Reference Range Interpretation Comments Sodium Lvl (test code = Sodium Lvl) 136 135-145 [place] 025701-08-10 09:30:00 Test Item Value Reference Range Interpretation Comments Potassium Lvl (test code = Potassium 4.3 3.5-5.1 Lvl) [place] 025701-08-10 09:30:00 Test Item Value Reference Range Interpretation Comments Chloride Lvl (test code = Chloride Lvl) 103 95-109 [place] 025701-08-10 09:30:00 Test Item Value Reference Range Interpretation Comments CO2 (test code = CO2) 27 24-32 [place] 025701-08-10 09:30:00 Test Item Value Reference Range Interpretation Comments Calcium Lvl (test code = Calcium Lvl) 7.9 8.5-10.5 [place] 025701-08-10 09:30:00 Test Item Value Reference Range Interpretation Comments AGAP (test code = AGAP) 10.3 10.0-20.0 [place] 025701-08-10 09:30:00 Test Item Value Reference Range Interpretation Comments eGFR (test code = eGFR) 15 [place] 025701-08-10 09:30:00 Test Item Value Reference Range Interpretation Comments Magnesium Lvl (test code = Magnesium 2.3 1.8-2.4 Lvl) [place] 025701-08-10 09:30:00 Test Item Value Reference Range Interpretation Comments Phosphorus (test code = Phosphorus) 3.1 2.5-4.5 [facility] HospitalZqbnklrBYYGMUJCAJ1968-00-77 09:30:00 Test Item Value Reference Range Interpretation Comments Segs (test code = Segs) 61.5 45.0-75.0 [facility] HospitalYwlibuuQGGJKZZFRK6364-55-33 09:30:00 Test Item Value Reference Range Interpretation Comments Lymphocytes (test code = Lymphocytes) 24.6 20.0-40.0 [place] 066171-08-10 09:30:00 Test Item Value Reference Range Interpretation Comments Monocytes (test code = Monocytes) 7.4 2.0-12.0 [facility] HospitalJrsjpufQHCWLPBZRB1305-03-71 09:30:00 Test Item Value Reference Range Interpretation Comments Eosinophils (test code = 5.5 See_Comment [A utomated message] The Eosinophils) system which ge nerated this result tra nsmitted reference range : <=4.0. The reference r leo was not used to int erpret this result as normal/abnormal . [facility] HospitalHuplimeXMCLEYXBHY6460-08-56 09:30:00 Test Item Value Reference Range Interpretation Comments Basophils (test code = 1.0 See_Comment [Aut omated message] The Basophils) system which ge nerated this result tra nsmitted reference range : <=1.0. The reference r leo was not used to int erpret this result as normal/abnormal . [facility] HospitalAyigydmMGDHRAQYRD8445-89-41 09:30:00 Test Item Value Reference Range Interpretation Comments Neutrophils # (test code = Neutrophils 1.6 1.5-8.1 #) [facility] HospitalVjcddyjZBXROSGHSG6376-68-07 09:30:00 Test Item Value Reference Range Interpretation Comments Lymphocytes # (test code = Lymphocytes 0.6 1.0-5.5 #) [facility] HospitalGvqsnriJZBGBREZSO4902-61-61 09:30:00 Test Item Value Reference Range Interpretation Comments Monocytes # (test code 0.2 See_Comment [Aut omated message] The = Monocytes #) system which generated this result tra nsmitted reference range : <=0.8. The reference r leo was not used to int erpret this result as normal/abnormal . [facility] HospitalCjqocziDIAWPXTABN3065-49-26 09:30:00 Test Item Value Reference Range Interpretation Comments Eosinophils # (test code 0.1 See_Comment [A utomated message] The = Eosinophils #) system [employer] generated this result tra nsmitted reference range : <=0.5. The reference r leo was not used to int erpret this result as normal/abnormal . [facility] HospitalSffqokvZVDVFATYSV7508-05-84 09:30:00 Test Item Value Reference Range Interpretation [...] studies, if clinically indicated, are recommended. CPT: 43749 [facility] HospitalLjuvbloTARBOIGHIS5816-61-87 09:30:00 Test Item Value Reference Range Interpretation Comments WBC (test code = WBC) 2.5 3.7-10.4 [place] [address]-08-10 09:30:00 Test Item Value Reference Range Interpretation Comments RBC (test code = RBC) 2.68 4.20-5.40 [place] 066171-08-10 09:30:00 Test Item Value Reference Range Interpretation Comments Hgb (test code = Hgb) 8.2 12.0-16.0 [place] [address]-08-10 09:30:00 Test Item Value Reference Range Interpretation Comments Hct (test code = Hct) 24.3 36.0-48.0 [place] [address]-08-10 09:30:00 Test Item Value Reference Range Interpretation Comments MCV (test code = MCV) 90.9 80.0-98.0 [place] [address]-08-10 09:30:00 Test Item Value Reference Range Interpretation Comments MCH (test code = MCH) 30.5 pg 27.0-31.0 [place] [address]-08-10 09:30:00 Test Item Value Reference Range Interpretation Comments MCHC (test code = MCHC) 33.6 32.0-36.0 [place] [address]-08-10 09:30:00 Test Item Value Reference Range Interpretation Comments RDW (test code = RDW) 19.4 11.5-14.5 [facility] HospitalYgaiaexQQNJENUSKD0909-98-82 09:30:00 Test Item Value Reference Range Interpretation Comments Platelet (test code = Platelet) 70 133-450 [facility] HospitalCbfwvimVHJGFWMKBI0535-57-83 09:30:00 Test Item Value Reference Range Interpretation Comments MPV (test code = MPV) 10.7 7.4-10.4 [place] 025701-08-09 05:10:00 Test Item Value Reference Range Interpretation Comments Glucose Lvl (test code = Glucose Lvl) 69 70-99 [facility]2021-08-09 05:10:00 Test Item Value Reference Range Interpretation Comments BUN (test code = BUN) 29 7-22 [facility]2021-08-09 05:10:00 Test Item Value Reference Range Interpretation Comments Creatinine Lvl (test code = Creatinine 5.14 0.50-1.40 Lvl) [facility]2021-08-09 05:10:00 Test Item Value Reference Range Interpretation Comments Sodium Lvl (test code = Sodium Lvl) 134 135-145 [facility]2021-08-09 05:10:00 Test Item Value Reference Range Interpretation Comments Potassium Lvl (test code = Potassium 5.1 3.5-5.1 Lvl) [facility]2021-08-09 05:10:00 Test Item Value Reference Range Interpretation Comments Chloride Lvl (test code = Chloride Lvl) 98 95-109 [facility]2021-08-09 05:10:00 Test Item Value Reference Range Interpretation Comments CO2 (test code = CO2) 29 24-32 [place] 025701-08-09 05:10:00 Test Item Value Reference Range Interpretation Comments Calcium Lvl (test code = Calcium Lvl) 7.6 8.5-10.5 [facility]2021-08-09 05:10:00 Test Item Value Reference Range Interpretation Comments AGAP (test code = AGAP) 12.1 10.0-20.0 [place] 025701-08-09 05:10:00 Test Item Value Reference Range Interpretation Comments eGFR (test code = eGFR) 10 [place] 025701-08-09 05:10:00 Test Item Value Reference Range Interpretation Comments Magnesium Lvl (test code = Magnesium 2.3 1.8-2.4 Lvl) [facility]2021-08-09 05:10:00 Test Item Value Reference Range Interpretation Comments Phosphorus (test code = Phosphorus) 5.0 2.5-4.5 [facility] HospitalBfdgiqvVEXNXHKELE8717-28-19 05:10:00 Test Item Value Reference Range Interpretation Comments WBC (test code = WBC) 2.7 3.7-10.4 [facility] HospitalLwrrymwMPINZGGEMC0043-92-54 05:10:00 Test Item Value Reference Range Interpretation Comments RBC (test code = RBC) 2.80 4.20-5.40 [place] 066171-08-09 05:10:00 Test Item Value Reference Range Interpretation Comments Hgb (test code = Hgb) 8.5 12.0-16.0 [place] 066171-08-09 05:10:00 Test Item Value Reference Range Interpretation Comments Hct (test code = Hct) 25.7 36.0-48.0 [facility] HospitalHrqvjlrUJOXBKZFUO3466-14-93 05:10:00 Test Item Value Reference Range Interpretation Comments MCV (test code = MCV) 91.7 80.0-98.0 [place] 066171-08-09 05:10:00 Test Item Value Reference Range Interpretation Comments MCH (test code = MCH) 30.4 pg 27.0-31.0 [facility] HospitalKpryjkfFKXVCIAWBR9848-36-12 05:10:00 Test Item Value Reference Range Interpretation Comments MCHC (test code = MCHC) 33.1 32.0-36.0 [facility] HospitalOsknhgmAVNEOCPPWF5877-51-35 05:10:00 Test Item Value Reference Range Interpretation Comments RDW (test code = RDW) 19.2 11.5-14.5 [place] 066171-08-09 05:10:00 Test Item Value Reference Range Interpretation Comments Platelet (test code = Platelet) 72 133-450 [facility] HospitalWvogunlQTHUPYPJQY7655-78-22 05:10:00 Test Item Value Reference Range Interpretation Comments MPV (test code = MPV) 9.9 7.4-10.4 [place] 066171-08-09 05:10:00 Test Item Value Reference Range Interpretation Comments Segs (test code = Segs) 72.6 45.0-75.0 [facility] HospitalVeyugjxGCQLUFVYJZ7995-48-40 05:10:00 Test Item Value Reference Range Interpretation Comments Lymphocytes (test code = Lymphocytes) 15.9 20.0-40.0 [place] 066171-08-09 05:10:00 Test Item Value Reference Range Interpretation Comments Monocytes (test code = Monocytes) 7.3 2.0-12.0 [facility] HospitalRmghyepNUCUOSWTTP6329-23-80 05:10:00 Test Item Value Reference Range Interpretation Comments Eosinophils (test code = 3.4 See_Comment [A utomated message] The Eosinophils) system which ge nerated this result tra nsmitted reference range : <=4.0. The reference r leo was not used to int erpret this result as normal/abnormal . [place] 066171-08-09 05:10:00 Test Item Value Reference Range Interpretation Comments Basophils (test code = 0.8 See_Comment [Aut omated message] The Basophils) system which ge nerated this result tra nsmitted reference range : <=1.0. The reference r leo was not used to int erpret this result as normal/abnormal . [facility] HospitalNomafiqKJBNBJRSBR3076-68-42 05:10:00 Test Item Value Reference Range Interpretation Comments Neutrophils # (test code = Neutrophils 1.9 1.5-8.1 #) [facility] HospitalFrfkdvuDNRSPGNXOA0797-55-36 05:10:00 Test Item Value Reference Range Interpretation Comments Lymphocytes # (test code = Lymphocytes 0.4 1.0-5.5 #) [facility] HospitalGtskgfdJJDSYNQDDE2086-70-29 05:10:00 Test Item Value Reference Range Interpretation Comments Monocytes # (test code 0.2 See_Comment [Aut omated message] The = Monocytes #) system which generated this result tra nsmitted reference range : <=0.8. The reference r leo was not used to int erpret this result as normal/abnormal . [facility] HospitalKglvayhHJJNMAEUPB0930-05-16 05:10:00 Test Item Value Reference Range Interpretation Comments Eosinophils # (test code 0.1 See_Comment [A utomated message] The = Eosinophils #) system whic h generated this result tra nsmitted reference range : <=0.5. The reference r leo was not used to int erpret this result as normal/abnormal . [facility]2021-08-09 05:10:00 Test Item Value Reference Range Interpretation Comments Ca Ion WB (test code = Ca Ion WB) 1.10 1.05-1.25 [facility]2021-08-09 05:10:00 Test Item Value Reference Range Interpretation Comments Ca Norm WB (test code = Ca Norm WB) 1.06 1.05-1.25 [facility] DHKUCNFBDT6484-29-92 18:36:00 Test Item Value Reference Range Interpretation Comments C difficile DNA (test Negative (01/26/21 1:36 code = C difficile DNA) PM) [facility]2021-08-08 07:33:00 Test Item Value Reference Range Interpretation Comments Ca Ion WB (test code = Ca Ion WB) 1.12 1.05-1.25 [facility]2021-08-08 07:33:00 Test Item Value Reference Range Interpretation Comments Ca Norm WB (test code = Ca Norm WB) 1.07 1.05-1.25 [facility]2021-08-08 07:30:00 Test Item Value Reference Range Interpretation Comments Glucose Lvl (test code = Glucose Lvl) 65 70-99 [facility]2021-08-08 07:30:00 Test Item Value Reference Range Interpretation Comments BUN (test code = BUN) 21 7-22 [facility]2021-08-08 07:30:00 Test Item Value Reference Range Interpretation Comments Creatinine Lvl (test code = Creatinine 4.18 0.50-1.40 Lvl) [facility]2021-08-08 07:30:00 Test Item Value Reference Range Interpretation Comments Sodium Lvl (test code = Sodium Lvl) 136 135-145 [facility]2021-08-08 07:30:00 Test Item Value Reference Range Interpretation Comments Potassium Lvl (test code = Potassium 4.5 3.5-5.1 Lvl) [facility]2021-08-08 07:30:00 Test Item Value Reference Range Interpretation Comments Chloride Lvl (test code = Chloride Lvl) 99 95-109 [place] 025701-08-08 07:30:00 Test Item Value Reference Range Interpretation Comments CO2 (test code = CO2) 31 24-32 [place] 025701-08-08 07:30:00 Test Item Value Reference Range Interpretation Comments AGAP (test code = AGAP) 10.5 10.0-20.0 [place] [place] 025701-08-08 07:30:00 Test Item Value Reference Range Interpretation Comments Calcium Lvl (test code = Calcium Lvl) 7.9 8.5-10.5 [place] 025701-08-08 07:30:00 Test Item Value Reference Range Interpretation Comments eGFR (test code = eGFR) 13 [place] 025701-08-08 07:30:00 Test Item Value Reference Range Interpretation Comments Magnesium Lvl (test code = Magnesium 2.2 1.8-2.4 Lvl) [place] 025701-08-08 07:30:00 Test Item Value Reference Range Interpretation Comments Phosphorus (test code = Phosphorus) 4.4 2.5-4.5 [place] 066171-08-08 07:30:00 Test Item Value Reference Range Interpretation Comments WBC (test code = WBC) 2.3 3.7-10.4 [place] 066171-08-08 07:30:00 Test Item Value Reference Range Interpretation Comments RBC (test code = RBC) 2.88 4.20-5.40 [place] 066171-08-08 07:30:00 Test Item Value Reference Range Interpretation Comments Hgb (test code = Hgb) 8.6 12.0-16.0 [place] 066171-08-08 07:30:00 Test Item Value Reference Range Interpretation Comments Hct (test code = Hct) 26.6 36.0-48.0 [place] 066171-08-08 07:30:00 Test Item Value Reference Range Interpretation Comments MCV (test code = MCV) 92.2 80.0-98.0 [place] 62785-08-08 07:30:00 Test Item Value Reference Range Interpretation Comments MCH (test code = MCH) 29.8 pg 27.0-31.0 [place] 066171-08-08 07:30:00 Test Item Value Reference Range Interpretation Comments MCHC (test code = MCHC) 32.4 32.0-36.0 [place] 066171-08-08 07:30:00 Test Item Value Reference Range Interpretation Comments RDW (test code = RDW) 19.7 11.5-14.5 [place] 066171-08-08 07:30:00 Test Item Value Reference Range Interpretation Comments Platelet (test code = Platelet) 83 133-450 [facility]HziradjADJQHIFFQF2509-64-34 07:30:00 Test Item Value Reference Range Interpretation Comments MPV (test code = MPV) 10.2 7.4-10.4 [place] 066171-08-08 07:30:00 Test Item Value Reference Range Interpretation Comments Segs (test code = Segs) 64.0 45.0-75.0 [place] 066171-08-08 07:30:00 Test Item Value Reference Range Interpretation Comments Lymphocytes (test code = Lymphocytes) 24.1 20.0-40.0 [place] 066171-08-08 07:30:00 Test Item Value Reference Range Interpretation Comments Monocytes (test code = Monocytes) 7.0 2.0-12.0 [facility] HospitalCwxvwicOKRURTBUNP2602-14-52 07:30:00 Test Item Value Reference Range Interpretation Comments Eosinophils (test code = 3.7 See_Comment [A utomated message] The Eosinophils) system which ge nerated this result tra nsmitted reference range : <=4.0. The reference r leo was not used to int erpret this result as normal/abnormal . [facility] HospitalIbmkujsAUCAJGZCFS1427-63-84 07:30:00 Test Item Value Reference Range Interpretation Comments Basophils (test code = 1.2 See_Comment [Aut omated message] The Basophils) system which ge nerated this result tra nsmitted reference range : <=1.0. The reference r leo was not used to int erpret this result as normal/abnormal . [facility] HospitalBxzvlhrXMFXDKHECG4971-99-25 07:30:00 Test Item Value Reference Range Interpretation Comments Neutrophils # (test code = Neutrophils 1.5 1.5-8.1 #) [facility] HospitalTndzwkyQPXEPDSXCR6505-26-82 07:30:00 Test Item Value Reference Range Interpretation Comments Lymphocytes # (test code = Lymphocytes 0.6 1.0-5.5 #) [place] 066171-08-08 07:30:00 Test Item Value Reference Range Interpretation Comments Monocytes # (test code 0.2 See_Comment [Aut omated message] The = Monocytes #) system which generated this result tra nsmitted reference range : <=0.8. The reference r leo was not used to int erpret this result as normal/abnormal . [facility] HospitalNexcxqnTJVIEKMPQW1611-34-66 07:30:00 Test Item Value Reference Range Interpretation Comments Eosinophils # (test code 0.1 See_Comment [A utomated message] The = Eosinophils #) system whic h generated this result tra nsmitted reference range : <=0.5. The reference r leo was not used to int erpret this result as normal/abnormal . [place] 025701-08-07 09:32:00 Test Item Value Reference Range Interpretation Comments Glucose Lvl (test code = Glucose Lvl) 59 70-99 [place] 025701-08-07 09:32:00 Test Item Value Reference Range Interpretation Comments BUN (test code = BUN) 11 7-22 [place] 025701-08-07 09:32:00 Test Item Value Reference Range Interpretation Comments Creatinine Lvl (test code = Creatinine 2.75 0.50-1.40 Lvl) [place] 025701-08-07 09:32:00 Test Item Value Reference Range Interpretation Comments Sodium Lvl (test code = Sodium Lvl) 138 135-145 [place] 025701-08-07 09:32:00 Test Item Value Reference Range Interpretation Comments Potassium Lvl (test code = Potassium 4.1 3.5-5.1 Lvl) [place] 025701-08-07 09:32:00 Test Item Value Reference Range Interpretation Comments Chloride Lvl (test code = Chloride Lvl) 104 95-109 [place] 025701-08-07 09:32:00 Test Item Value Reference Range Interpretation Comments CO2 (test code = CO2) 29 24-32 [place] 025701-08-07 09:32:00 Test Item Value Reference Range Interpretation Comments Calcium Lvl (test code = Calcium Lvl) 8.3 8.5-10.5 [place] 025701-08-07 09:32:00 Test Item Value Reference Range Interpretation Comments AGAP (test code = AGAP) 9.1 10.0-20.0 [facility]2021-08-07 09:32:00 Test Item Value Reference Range Interpretation Comments eGFR (test code = eGFR) 21 [facility]2021-08-07 09:32:00 Test Item Value Reference Range Interpretation Comments Magnesium Lvl (test code = Magnesium 2.2 1.8-2.4 Lvl) [facility]2021-08-07 09:32:00 Test Item Value Reference Range Interpretation Comments Phosphorus (test code = Phosphorus) 3.9 2.5-4.5 [place] 066171-08-07 09:32:00 Test Item Value Reference Range Interpretation Comments WBC (test code = WBC) 2.3 3.7-10.4 [place] 066171-08-07 09:32:00 Test Item Value Reference Range Interpretation Comments RBC (test code = RBC) 2.78 4.20-5.40 [place] 066171-08-07 09:32:00 Test Item Value Reference Range Interpretation Comments Hgb (test code = Hgb) 8.4 12.0-16.0 [place] 066171-08-07 09:32:00 Test Item Value Reference Range Interpretation Comments Hct (test code = Hct) 25.2 36.0-48.0 [place] 066171-08-07 09:32:00 Test Item Value Reference Range Interpretation Comments MCV (test code = MCV) 90.5 80.0-98.0 [place] 066171-08-07 09:32:00 Test Item Value Reference Range Interpretation Comments MCH (test code = MCH) 30.4 pg 27.0-31.0 [place] 066171-08-07 09:32:00 Test Item Value Reference Range Interpretation Comments MCHC (test code = MCHC) 33.5 32.0-36.0 [place] 066171-08-07 09:32:00 Test Item Value Reference Range Interpretation Comments RDW (test code = RDW) 19.0 11.5-14.5 [place] 066171-08-07 09:32:00 Test Item Value Reference Range Interpretation Comments Platelet (test code = Platelet) 87 133-450 [facility] HospitalJanfuekSTUYPSNFWV9538-97-27 09:32:00 Test Item Value Reference Range Interpretation Comments MPV (test code = MPV) 10.0 7.4-10.4 [facility] [id number] 05:33:00 Test Item Value Reference Range Interpretation Comments ABO/Rh (test code = ABO/Rh) B POS [facility] [id number] 05:33:00 Test Item Value Reference Range Interpretation Comments Antibody Scrn (test Negative (01/24/21 12:33 code = Antibody Scrn) AM) [facility] HospitalMhbulabVREYYNXWCJ0667-63-73 05:33:00 Test Item Value Reference Range Interpretation Comments Segs (test code = Segs) 60.2 45.0-75.0 [facility] HospitalPwttsqhQOSOORDXIO7618-65-67 05:33:00 Test Item Value Reference Range Interpretation Comments Lymphocytes (test code = Lymphocytes) 28.6 20.0-40.0 [facility] HospitalYrfifawVLOEIZQFFB0643-24-76 05:33:00 Test Item Value Reference Range Interpretation Comments Monocytes (test code = Monocytes) 5.8 2.0-12.0 [facility] HospitalAihruipQGVONXGAZP1707-99-29 05:33:00 Test Item Value Reference Range Interpretation Comments Eosinophils (test code = 4.2 See_Comment [A utomated message] The Eosinophils) system which ge nerated this result tra nsmitted reference range : <=4.0. The reference r leo was not used to int erpret this result as normal/abnormal . [facility] HospitalSyrygdrSGSCYJWAFI2027-43-54 05:33:00 Test Item Value Reference Range Interpretation Comments Basophils (test code = 1.2 See_Comment [Aut omated message] The Basophils) system which ge nerated this result tra nsmitted reference range : <=1.0. The reference r leo was not used to int erpret this result as normal/abnormal . [facility] HospitalEsqlouzVSMIXTAPQK4309-40-96 05:33:00 Test Item Value Reference Range Interpretation Comments Neutrophils # (test code = Neutrophils 2.2 1.5-8.1 #) [facility] HospitalKxhnuxkMULZOOWQWE2073-09-09 05:33:00 Test Item Value Reference Range Interpretation Comments Lymphocytes # (test code = Lymphocytes 1.1 1.0-5.5 #) [facility] HospitalOwatkrtRKDCLJVPWH5903-34-35 05:33:00 Test Item Value Reference Range Interpretation Comments Monocytes # (test code 0.2 See_Comment [Aut omated message] The = Monocytes #) system which generated this result tra nsmitted reference range : <=0.8. The reference r leo was not used to int erpret this result as normal/abnormal . [facility] HospitalKrsadntKJMSFVYADA2803-13-56 05:33:00 Test Item Value Reference Range Interpretation Comments Eosinophils # (test code 0.2 See_Comment [A utomated message] The = Eosinophils #) system whic h generated this result tra nsmitted reference range : <=0.5. The reference r leo was not used to int erpret this result as normal/abnormal . [facility] HospitalTfictdbNXOZNTWTLN9999-95-52 05:53:00 Test Item Value Reference Range Interpretation Comments PT (test code = PT) 14.4 s 12.0-14.7 [facility] HospitalDvnrsmxBRXOYMVGKU1526-76-44 05:53:00 Test Item Value Reference Range Interpretation Comments INR (test code = INR) 1.13 1 0.85-1.17 [facility] HospitalIpajcbfLJKBMUIYHT8758-65-69 05:53:00 Test Item Value Reference Range Interpretation Comments Fibrinogen Lvl (test code = Fibrinogen 319 230-510 Lvl) [facility] HospitalXiobveoPIIKNOVDNW5250-85-76 05:53:00 Test Item Value Reference Range Interpretation Comments Thrombin Time (test code = Thrombin 15.9 s 15.0-21.2 Time) [facility] HospitalXvvebdbXMYAZTIWSB1370-72-13 05:53:00 Test Item Value Reference Range Interpretation Comments PTT (test code = PTT) 47.0 s 22.9-35.8 [facility] HospitalBxcljghMMGGFUEFKO2407-13-80 05:53:00 Test Item Value Reference Range Interpretation Comments D-Dimer (test code = D-Dimer) 0.91 [facility] HospitalKftzrwtCIPNZFPRKU5761-11-73 05:53:00 Test Item Value Reference Range Interpretation Comments Basophils # (test code 0.1 See_Comment [Aut omated message] The = Basophils #) system which generated this result tra nsmitted reference range : <=0.2. The reference r leo was not used to int erpret this result as normal/abnormal . [facility] FallsPARATHYROID [id number] 05:53:00 Test Item Value Reference Range Interpretation Comments Ca Ion WB (test code = Ca Ion WB) 1.24 1.05-1.25 [facility] McallennaeemPARATHYROID [id number] 05:53:00 Test Item Value Reference Range Interpretation Comments Ca Norm WB (test code = Ca Norm WB) 1.25 1.05-1.25 [facility] McallenBliipsATRIUM HEALTH CAROLINAS MEDICAL CENTEREOIEG1349-11-12 10:09:00 Test Item Value Reference Range Interpretation Comments ALT (test code = ALT) 49 See_Comment [Auto mated message] The system which ge nerated this result transmit rohit reference range : <=65. The reference range was not used to interpr et this result as reji l/abnormal. [facility]enTopRe[facility] [id number] 10:09:00 Test Item Value Reference Range Interpretation Comments Albumin Lvl (test code = Albumin Lvl) 2.8 3.5-5.0 [facility]2021-08-04 10:09:00 Test Item Value Reference Range Interpretation Comments Alk Phos (test code = Alk Phos) 41 39-136 [facility] McallenBliipsATRIUM HEALTH CAROLINAS MEDICAL CENTERTXSKV9777-24-69 10:09:00 Test Item Value Reference Range Interpretation Comments Bili Direct (test code 0.2 See_Comment [Aut omated message] The = Bili Direct) system which generated this result tra nsmitted reference range : <=0.3. The reference r leo was not used to int erpret this result as reji l/abnormal. [facility] [id number] 10:09:00 Test Item Value Reference Range Interpretation Comments Bili Total (test code = Bili Total) 0.6 0.2-1.3 [facility] [id number] 10:09:00 Test Item Value Reference Range Interpretation Comments Bili Indirect (test 0.4 See_Comment [Automa rohit message] The code = Bili Indirect) system which generated this result tra nsmitted reference range : <=1.0. The reference r leo was not used to int erpret this result as normal/abnormal . [facility] [id number] 10:09:00 Test Item Value Reference Range Interpretation Comments Total Protein (test code = Total 5.6 6.4-8.4 Protein) [facility]2021-08-04 10:09:00 Test Item Value Reference Range Interpretation Comments AST (test code = AST) 33 See_Comment [Auto mated message] The system which ge nerated this result transmit rohit reference range : <=37. The reference range was not used to interpr et this result as reji l/abnormal. [facility] FallsCeltra Inc[facility] [id number] 10:09:00 Test Item Value Reference Range Interpretation Comments Globulin (test code = Globulin) 2.8 2.7-4.2 [facility] FallsC[facility] Inc[facility] [id number] 10:09:00 Test Item Value Reference Range Interpretation Comments A/G Ratio (test code = A/G Ratio) 1.0 1 0.7-1.6 [facility] FallsC[facility] Inc[facility] [id number] 10:09:00 Test Item Value Reference Range Interpretation Comments Amylase Lvl (test code = Amylase Lvl) 19 25-115 [facility] FallsC[facility] Inc[facility] [id number] 10:09:00 Test Item Value Reference Range Interpretation Comments Lipase Lvl (test code = Lipase Lvl) no gt 73-393 [facility] FallsNgudrgtZLZQVXMQTW6160-59-83 10:09:00 Test Item Value Reference Range Interpretation Comments PTT (test code = PTT) 41.4 s 22.9-35.8 [facility] FallsTnizvzeGDQCQNVBMZ6633-62-21 10:09:00 Test Item Value Reference Range Interpretation Comments PT (test code = PT) 15.4 s 12.0-14.7 [facility] FallsSyugdpeAMIOMSPCEI0212-10-73 10:09:00 Test Item Value Reference Range Interpretation Comments INR (test code = INR) 1.24 1 0.85-1.17 [facility] FallsGkxqkkvJSOEAXCIXM7076-44-28 10:09:00 Test Item Value Reference Range Interpretation Comments Fibrinogen Lvl (test code = Fibrinogen 312 230-510 Lvl) [facility] HospitalWhqopeyFOSWGHLAQH4331-20-63 10:09:00 Test Item Value Reference Range Interpretation Comments Thrombin Time (test code = Thrombin 16.6 s 15.0-21.2 Time) [facility] HospitalPmqriraRNNSRLUQJO7380-21-67 10:09:00 Test Item Value Reference Range Interpretation Comments D-Dimer (test code = D-Dimer) 4.91 [facility] HospitalKxarkdsEKDBDWGEJA7941-52-89 10:09:00 Test Item Value Reference Range Interpretation Comments Basophils # (test code 0.1 See_Comment [Aut omated message] The = Basophils #) system which generated this result tra nsmitted reference range : <=0.2. The reference r leo was not used to int erpret this result as normal/abnormal . [facility] [id number] 10:09:00 Test Item Value Reference Range Interpretation Comments Hgb A1C (test code = Hgb A1C) 5.6 [facility] FallsCHEM [id number] 09:07:00 Test Item Value Reference Range Interpretation Comments Amylase Lvl (test code = Amylase Lvl) 4 25-115 [facility] FallsNmvxchnIOBOXDXHIG2092-01-99 09:07:00 Test Item Value Reference Range Interpretation Comments Thrombin Time (test code = Thrombin 18.0 s 15.0-21.2 Time) [facility] SystemTwrhmakUBNFMHRYUS3794-18-84 09:07:00 Test Item Value Reference Range Interpretation Comments PT (test code = PT) 24.6 s 12.0-14.7 [facility] SystemRpznyhnXARROPUOCK9973-34-25 09:07:00 Test Item Value Reference Range Interpretation Comments INR (test code = INR) 2.31 1 0.85-1.17 [facility] SystemUdfoxaxDRRTAVAEKR2941-12-22 09:07:00 Test Item Value Reference Range Interpretation Comments PTT (test code = PTT) 57.5 s 22.9-35.8 [facility] FallsLdppxjgPAAPSLTKBD1061-42-32 09:07:00 Test Item Value Reference Range Interpretation Comments Fibrinogen Lvl (test code = Fibrinogen 125 230-510 Lvl) [facility] SystemKaslikbICWFRQEZYX6976-44-77 09:07:00 Test Item Value Reference Range Interpretation Comments D-Dimer (test code = D-Dimer) 2.28 [facility] FallsBLOOD BANK [id number] 04:52:00 Test Item Value Reference Range Interpretation Comments RBC product (test code Product available = RBC product) (01/21/21 11:52 PM) [facility] FallsCARDIAC [id number] 00:38:00 Test Item Value Reference Range Interpretation Comments Troponin-I (test code no gt See_Comment [Auto mated message] The = Troponin-I) system which g enerated this result transmit rohit reference range : <=0.40. The reference r leo was not used to interpr et this result as reji l/abnormal. [facility] FallsSush.io [id number] 17:47:00 Test Item Value Reference Range Interpretation Comments BNP (test code = BNP) 2324 [facility] McallenannCARDIAC [id number] 17:47:00 Test Item Value Reference Range Interpretation Comments Troponin-I (test code 0.02 See_Comment [Auto mated message] The = Troponin-I) system which g enerated this result transmit rohit reference range : <=0.40. The reference r leo was not used to interpr et this result as reji l/abnormal. [facility] FallsXpmpkzyFAHHSWUMMI8898-67-40 17:47:00 Test Item Value Reference Range Interpretation Comments Hep Bs Ag (test code Negative *NA*(01/21/21 = Hep Bs Ag) 12:47 PM) [facility] [id number] 17:43:00 Test Item Value Reference Range Interpretation Comments B/C Ratio (test code = B/C Ratio) 5 1 6-25 [facility] [id number] 17:43:00 Test Item Value Reference Range Interpretation Comments ALT (test code = ALT) 66 See_Comment [Auto mated message] The system which ge nerated this result transmit rohit reference range : <=65. The reference range was not used to interpr et this result as reji l/abnormal. [facility] [employer] [id number] 17:43:00 Test Item Value Reference Range Interpretation Comments Albumin Lvl (test code = Albumin Lvl) 3.0 3.5-5.0 [facility] [id number] 17:43:00 Test Item Value Reference Range Interpretation Comments Alk Phos (test code = Alk Phos) 40 39-136 [facility] [id number] 17:43:00 Test Item Value Reference Range Interpretation Comments Bili Total (test code = Bili Total) 0.5 0.2-1.3 [facility] [id number] 17:43:00 Test Item Value Reference Range Interpretation Comments Total Protein (test code = Total 5.7 6.4-8.4 Protein) [facility] [id number] 17:43:00 Test Item Value Reference Range Interpretation Comments AST (test code = AST) 52 See_Comment [Auto mated message] The system which ge nerated this result transmit rohit reference range : <=37. The reference range was not used to interpr et this result as reji l/abnormal. [facility] [employer] [id number] 17:43:00 Test Item Value Reference Range Interpretation Comments Globulin (test code = Globulin) 2.7 2.7-4.2 [facility] [id number] 17:43:00 Test Item Value Reference Range Interpretation Comments A/G Ratio (test code = A/G Ratio) 1.1 1 0.7-1.6 [facility] [employer] [id number] 17:43:00 Test Item Value Reference Range Interpretation Comments Lactic Acid Lvl (test code = Lactic 1.1 0.5-2.2 Acid Lvl) [facility] McallenYesmail [id number] 16:20:00 Test Item Value Reference Range Interpretation Comments ABO/Rh (test code = ABO/Rh) B POS [facility] [employer] [id number] 16:20:00 Test Item Value Reference Range Interpretation Comments Antibody Scrn (test Negative (01/21/21 11:20 code = Antibody Scrn) AM) [facility] FallsYmlvjyxPUBYUFGYTW6102-45-14 16:20:00 Test Item Value Reference Range Interpretation Comments Anisocyte (test code = 1+ *ABN*(01/21/21 Anisocyte) 11:20 AM) [facility] McallenGameWithATRI[facility] [id number] 15:35:00 Test Item Value Reference Range Interpretation Comments Lactase Lvl (test code = Lactase Lvl) 2.0 [facility] TechnologiesAT[facility] [id number] 15:35:00 Test Item Value Reference Range Interpretation Comments Sucrase Lvl (test code = Sucrase Lvl) 38.6 [facility] TechnologiesAT[facility] [id number] 15:35:00 Test Item Value Reference Range Interpretation Comments Maltase Lvl (test code = Maltase Lvl) 177.2 [facility] TechnologiesAT[facility] [id number] 15:35:00 Test Item Value Reference Range Interpretation Comments Palatinase Lvl (test code = Palatinase 13.8 Lvl) [facility] McallenExkhlknYPIKDHDTXQRO7608-41-49 13:21:00 Test Item Value Reference Range Interpretation Comments Potassium WB (test code = Potassium WB) 5.1 3.5-5.1 [facility]OgdivkfJCJBHMYPSGTHI4655-42-93 13:21:00 Test Item Value Reference Range Interpretation Comments S Preg (test code = S Negative 8*NA*(01/21/21 Preg) 8:21 AM) [facility] FallsYhtsmwzAXIDPVXLUF4780-33-19 11:19:00 Test Item Value Reference Range Interpretation Comments Coronavirus (COVID-19) Not Detected (01/21/21 EMANUEL (test code = 6:19 AM) Coronavirus (COVID-19) EMANUEL) [facility]2020-08-12 16:39:05 Test Item Value Reference Range Interpretation Comments Glucose POC (test 183 mg/dL 70-115 H If you con tar heat exchanger cleaner your code = Glucose POC) patient critically ill, the Merlin-Accu Check Infrom II meter should not be used for Glucose determination. Draw a venous Glucose and send to the main Lab for analysis. Urine Ksjoycp9581-22-89 11:32:13 Test Item Value Reference Range Interpretation [...] Escherichia coli C Urine Added by GL_SJM_UA_CUL_INDPOC Nqzcuxr2619-12-94 07:52:10 Test Item Value Reference Range Interpretation Comments Glucose POC (test 160 mg/dL 70-115 H If you con tar heat exchanger cleaner your code = Glucose POC) patient critically ill, the Merlin-Accu Check Infrom II meter should not be used for Glucose determination. Draw a venous Glucose and send to the main Lab for analysis. POC [id number] 19:32:05 Test Item Value Reference Range Interpretation Comments Glucose POC (test 184 mg/dL 70-115 H If you con tar heat exchanger cleaner your code = Glucose POC) patient critically ill, the Merlin-Accu Check Infrom II meter should not be used for Glucose determination. Draw a venous Glucose and send to the main Lab for analysis. POC [id number] 17:16:35 Test Item Value Reference Range Interpretation Comments Glucose POC (test 281 mg/dL 70-115 H Notify RN or MDIf you code = Glucose POC) consider your patient critically ill, the Merlin-Accu Chec k Infrom II meter should not be used for Glucos e determination. Draw a venous Glucose and send to the main Lab for analysis. POC [id number] 12:00:38 Test Item Value Reference Range Interpretation Comments Glucose POC (test 138 mg/dL 70-115 H Notify RN or MDIf you code = Glucose POC) consider your patient critically ill, the Merlin-Accu Chec k Infrom II meter should not be used for Glucos e determination. Draw a venous Glucose and send to the main Lab for analysis. POC [id number] 07:41:32 Test Item Value Reference Range Interpretation Comments Glucose POC (test 206 mg/dL 70-115 H Notify RN or MDIf you code = Glucose POC) consider your patient critically ill, the Merlin-Accu Chec k Infrom II meter should not be used for Glucos e determination. Draw a venous Glucose and send to the main Lab for analysis. Urinalysis [id number] 21:07:21 Test Item Value Reference Range Interpretation Comments UA WBC (test code = UA WBC) TNTC 0-5 A UA RBC (test code = UA RBC) 6-10 0-5 A UA Bacteria (test code = UA Bacteria) Profuse A UA Squam Epithelial (test code = UA 6-10 A Squam Epithelial) Urinalysis with Culture, if [id number] 20:35:14 Test Item Value Reference Range Interpretation [...] Micro Indicated Not Indicated A Ind?) POC [id number] 19:06:34 Test Item Value Reference Range Interpretation Comments Glucose POC (test 207 mg/dL 70-115 H If you con tar heat exchanger cleaner your code = Glucose POC) patient critically ill, the Merlin-Accu Check Infrom II meter should not be used for Glucose determination. Draw a venous Glucose and send to the main Lab for analysis. POC [id number] 17:12:03 Test Item Value Reference Range Interpretation Comments Glucose POC (test 173 mg/dL 70-115 H Notify RN or MDIf you code = Glucose POC) consider your patient critically ill, the Merlin-Accu Chec k Infrom II meter should not be used for Glucos e determination. Draw a venous Glucose and send to the main Lab for analysis. POC [id number] 11:58:01 Test Item Value Reference Range Interpretation Comments Glucose POC (test 289 mg/dL 70-115 H Notify RN or MDIf you code = Glucose POC) consider your patient critically ill, the Merlin-Accu Chec k Infrom II meter should not be used for Glucos e determination. Draw a venous Glucose and send to the main Lab for analysis. POC [id number] 08:19:37 Test Item Value Reference Range Interpretation Comments Glucose POC (test 201 mg/dL 70-115 H Notify RN or MDIf you code = Glucose POC) consider your patient critically ill, the Merlin-Accu Chec k Infrom II meter should not be used for Glucos e determination. Draw a venous Glucose and send to the main Lab for analysis. POC [id number] 20:37:35 Test Item Value Reference Range Interpretation Comments Glucose POC (test 272 mg/dL 70-115 H If you con tar heat exchanger cleaner your code = Glucose POC) patient critically ill, the Merlin-Accu Check Infrom II meter should not be used for Glucose determination. Draw a venous Glucose and send to the main Lab for analysis. POC [id number] 17:23:05 Test Item Value Reference Range Interpretation Comments Glucose POC (test 229 mg/dL 70-115 H If you con tar heat exchanger cleaner your code = Glucose POC) patient critically ill, the Merlin-Accu Check Infrom II meter should not be used for Glucose determination. Draw a venous Glucose and send to the main Lab for analysis. POC [id number] 12:01:01 Test Item Value Reference Range Interpretation Comments Glucose POC (test 155 mg/dL 70-115 H If you con tar heat exchanger cleaner your code = Glucose POC) patient critically ill, the Merlin-Accu Check Infrom II meter should not be used for Glucose determination. Draw a venous Glucose and send to the main Lab for analysis. POC [id number] 08:07:32 Test Item Value Reference Range Interpretation Comments Glucose POC (test 248 mg/dL 70-115 H If you con tar heat exchanger cleaner your code = Glucose POC) patient critically ill, the Merlin-Accu Check Infrom II meter should not be used for Glucose determination. Draw a venous Glucose and send to the main Lab for analysis. IG [id number] 06:50:39 Test Item Value Reference Range Interpretation Comments IG (test code = IG) 0.7 % 0.0-5.0 IG Abs (test code = IG Abs) 0 x10 N Complete Blood Count with [id number] 06:50:38 Test Item Value Reference Range Interpretation [...] code = IPF) 0 % N Automated [id number] 06:50:38 Test Item Value Reference Range Interpretation Comments Neutro Auto (test code = Neutro 50.3 % 36.0-70.0 Auto) Lymph Auto (test code = Lymph Auto) 38.6 % 12.0-44.0 [place] Auto (test code = [place] Auto) 7.3 % 0.0-11.0 Eos, Auto (test code = Eos, Auto) 2.4 % 0.0-7.0 Basophil Auto (test code = Basophil 0.7 % 0.0-2.0 Auto) Neutro Absolute (test code = Neutro 3.0 x10 1.6-7.4 Absolute) Lymph Absolute (test code = Lymph 2.28 x10 .50-4.60 Absolute) [place] Absolute (test code = [place] .43 x10 .00-1.20 Absolute) Eos Absolute (test code = Eos 0.14 x10 0.00-0.74 Absolute) Baso Absolute (test code = Baso 0.04 x10 0.00-0.21 Absolute) Basic Metabolic [id number] 05:38:20 Test Item Value Reference Range Interpretation [...] = Lipemia) 0 mg/dL 8-11 Basic Metabolic [id number] 05:38:20 Test Item Value Reference Range Interpretation [...] RangeeGF R < 60 may mean kid caols diseaseeGFR < 1 5 may mean kidney failure Rang es recommended by the National Kid[employer] Foundation, http://nkdep.ni h.gov Hemolysis (test code 0 mg/dL 8-11 = Hemolysis) Icterus (test code = 0 mg/dL 8-11 Icterus) Lipemia (test code = 0 mg/dL 8-11 Lipemia) Basic Metabolic [id number] 05:38:20 Test Item Value Reference Range Interpretation [...] ag e have not been validated by [facility] MDRD study and should be [...] ag e have not been validated by [facility] MDRD study and should be [...] code = 0 mg/dL 8-11 Lipemia) POC [id number] 20:28:33 Test Item Value Reference Range Interpretation Comments Glucose POC (test 169 mg/dL 70-115 H If you con tar heat exchanger cleaner your code = Glucose POC) patient critically ill, the Merlin-Accu Check Infrom II meter should not be used for Glucose determination. Draw a venous Glucose and send to the main Lab for analysis. POC [id number] 16:39:30 Test Item Value Reference Range Interpretation Comments Glucose POC (test 103 mg/dL 70-115 If you con tar heat exchanger cleaner your code = Glucose POC) patient critically ill, the Merlin-Accu Check Infrom II meter should not be used for Glucose determination. Draw a venous Glucose and send to the main Lab for analysis. RPR [id number] 12:08:56 Test Item Value Reference Range Interpretation Comments RPR Qual (test code = RPR Qual) Non-Reactive Non-Reactive Reactive Control (test code = Reactive Reactive Control) Weak Reactive Control (test Weak Reactive code = Weak Reactive Control) Non-Reactive Control (test code Non-Reactive = Non-Reactive Control) Lot # (test code = Lot #) [id number] N Expiration Dt (test code = 03-20-2021 N Expiration Dt) POC [id number] 11:52:31 Test Item Value Reference Range Interpretation Comments Glucose POC (test 250 mg/dL 70-115 H If you con tar heat exchanger cleaner your code = Glucose POC) patient critically ill, the Merlin-Accu Check Infrom II meter should not be used for Glucose determination. Draw a venous Glucose and send to the main Lab for analysis. POC [id number] 07:55:29 Test Item Value Reference Range Interpretation Comments Glucose POC (test 205 mg/dL 70-115 H If you con tar heat exchanger cleaner your code = Glucose POC) patient critically ill, the Merlin-Accu Check Infrom II meter should not be used for Glucose determination. Draw a venous Glucose and send to the main Lab for analysis. Lipid [id number] 05:46:04 Test Item Value Reference Range Interpretation [...] LDL/HDL Ratio=L DL Calc/HDL Chol Thyroid Stimulating [id number] 05:46:04 Test Item Value Reference Range Interpretation Comments TSH (test code = TSH) 3.274 mcIU/mL 0.550-4.780 Hemoglobin [id number] 05:41:08 Test Item Value Reference Range Interpretation Comments Hemoglobin A1c (test code 7.6 % 4.0-5.8 H Di abetic >=6.5 = Hemoglobin A1c) %Prediabet es 5.7-6.4 %Normal <5.7 % Hepatitis B Surface [id number] 21:19:36 Test Item Value Reference Range Interpretation Comments Hep Bs Ag (test code = Hep Bs Non-Reactive Non-Reactive Ag) Novel Coronavirus SARS-CoV-2, [id number] 11:16:16 Test Item Value Reference Range Interpretation [...] Emergency Use Authorization." Novel Coronavirus (COVID-19), EMANUEL [id number] 11:11:24TNPTest not sent and performed at [facility]Rapid was perfomed in Microbiology.Wrong covid test was ord ered.Urine DOA [id number] 00:17:49 Test Item Value Reference Range Interpretation [...] Propoxyphene Confirmation wi thin 7 days. Alcohol [id number] 00:17:29 Test Item Value Reference Range Interpretation Comments Ethanol Level 9.0 mg/dL N The pharmacolo gical (test code = response to blo od alcohol Ethanol Level) levels may va ry from individual to i ndividual. The fatal omkar ntration has been report ed to be >400 mg/dl. Comprehensive Metabolic [id number] 00:17:28 Test Item Value Reference Range Interpretation [...] = Lipemia) 0 g/dL 1-2 Comprehensive Metabolic [id number] 00:17:28 Test Item Value Reference Range Interpretation [...] = 0 g/dL 1-2 Lipemia) Comprehensive Metabolic [id number] 00:17:28 Test Item Value Reference Range Interpretation [...] g/dL 1-2 Lipemia) Complete Blood Count with [id number] 23:26:28 Test Item Value Reference Range Interpretation [...] code = IPF) 0 % N Automated [id number] 23:26:28 Test Item Value Reference Range Interpretation Comments Neutro Auto (test code = Neutro 67.1 % 36.0-70.0 Auto) Lymph Auto (test code = Lymph Auto) 23.3 % 12.0-44.0 Newport Auto (test code = [place] Auto) 5.8 % 0.0-11.0 Eos, Auto (test code = Eos, Auto) 2.3 % 0.0-7.0 Basophil Auto (test code = Basophil 0.8 % 0.0-2.0 Auto) Neutro Absolute (test code = Neutro 6.0 x10 1.6-7.4 Absolute) Lymph Absolute (test code = Lymph 2.10 x10 .50-4.60 Absolute) [place] Absolute (test code = [place] .52 x10 .00-1.20 Absolute) Eos Absolute (test code = Eos 0.21 x10 0.00-0.74 Absolute) Baso Absolute (test code = Baso 0.07 x10 0.00-0.21 Absolute) IG [id number] 23:26:28 Test Item Value Reference Range Interpretation Comments IG (test code = IG) 0.7 % 0.0-5.0 IG Abs (test code = IG Abs) 0 x10 N HERPES VIRUS ANTIBODY, [id number] 21:46:00 Test Item Value Reference Range Interpretation Comments HERPES VIRUS IGM (BEAKER) Negative SE E ATTACHMENT (test code = 1808) BLOOD [id number] 06:00:00 Test Item Value Reference Range Interpretation Comments CULTURE (BEAKER) (test No growth in 5 days code = 1095) BLOOD [id number] 06:00:00 Test Item Value Reference Range Interpretation Comments CULTURE (BEAKER) (test No growth in 5 days code = 1095) POCT-GLUCOSE [id number] 12:11:00 Test Item Value Reference Range Interpretation Comments POC-GLUCOSE METER 154 mg/dL 70-[address] [facility] [address] (BEAKER) (test code = [place] 1538) [address] POCT-GLUCOSE [id number] 07:53:00 Test Item Value Reference Range Interpretation Comments POC-GLUCOSE METER 87 mg/dL 70-[address] [facility] [address] (BEAKER) (test code = [place] [address] 1538) POCT-GLUCOSE [id number] 06:49:00 Test Item Value Reference Range Interpretation Comments POC-GLUCOSE METER 79 mg/dL 70-[address] [facility] [address] (BEAKER) (test code = [place] [facility] [address] 1538) COMPREHENSIVE METABOLIC [id number] 06:15:00 Test Item Value Reference Range Interpretation [...] S NOT APPLICABLE FOR DIALYSIS PATIANGELICA TS. [id number] 06:11:00 Test Item Value Reference Range Interpretation Comments MAGNESIUM (BEAKER) (test code = 2.1 mg/dL 1.6-2.6 627) HEPATIC FUNCTION [id number] 06:11:00 Test Item Value Reference Range Interpretation [...] code = 513 U/L 6-55 H 347) [id number] 05:30:00 Test Item Value Reference Range Interpretation Comments FIBRINOGEN LEVEL (BEAKER) (test 368 mg/dl 225-434 code = 658) [id number] 05:30:00 Test Item Value Reference Range Interpretation Comments PARTIAL THROMBOPLASTIN TIME 42.2 seconds 22.5-36.0 H (BEAKER) (test code = 760) PROTHROMBIN [id number] 05:29:00 Test Item Value Reference Range Interpretation Comments PROTIME (BEAKER) (test code = 14.8 seconds 11.7-14.7 H 759) INR (BEAKER) (test code = 370) 1.2 <=5.9 RECOMMENDED COUMADIN/WARFARIN INR THERAPY RANGESSTANDARD DOSE: 2.0 - 3.0 Includes: PROPHYLAXIS forvenous thrombosis, systemic embolization; TREATMENT for venous thrombosis and/or pulmonary embolus.HIGH RISK: Target INR is 2.5-3.5 for patients with mechanical heart valves.POCT-GLUCOSE [id number] 21:09:00 Test Item Value Reference Range Interpretation Comments POC-GLUCOSE METER 178 mg/dL 70-[address] [facility] [address] ([facility]) (test code = [place] 1538) [address] POCT-GLUCOSE [id number] 17:18:00 Test Item Value Reference Range Interpretation Comments POC-GLUCOSE METER 178 mg/dL 70-[address] [facility] [address] ([facility]) (test code = [place] [facility] 1538) [address] POCT-GLUCOSE [id number] 13:48:00 Test Item Value Reference Range Interpretation Comments POC-GLUCOSE METER 150 mg/dL 70-110 H TESTED AT [place] [address] ([facility]) (test code = [facility] 1538) [address] FACTOR 5 ACTIVITY (BLEEDING RISK)2017-01-06 10:04:00 Test Item Value Reference Range Interpretation Comments FACTOR V ACTIVITY ([facility]) (test code 90.0 % 60.0-150.0 = 665) Effective 10/24/2013: Reference Range Change-Adult onlyNew: 60.0-150.0 Previous: 50.0-150.0CYTOMEGALOVIRUS ANTIBODY, [id number] 09:42:00 Test Item Value Reference Range Interpretation Comments CYTOMEGALOVIRUS IGM ANTIBODY Negative ([facility]) (test code = 816) HERPES VIRUS ANTIBODY, [id number] 08:59:00 Test Item Value Reference Range Interpretation Comments 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[facility]) (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 G 1807) CYTOMEGALOVIRUS ANTIBODY, [id number] 08:59:00 Test Item Value Reference Range Interpretation Comments CYTOMEGALOVIRUS IGG ANTIBODY Positive ([facility]) (test code = 790) EBV-VCA ANTIBODY, [id number] 08:59:00 Test Item Value Reference Range Interpretation Comments JASE-WALL VCA IGG ([facility]) (test Positive code = 983) EBV-VCA ANTIBODY, [id number] 08:59:00 Test Item Value Reference Range Interpretation Comments JASE-WALL VCA IGM ([facility]) (test Negative code = 984) POCT-GLUCOSE [id number] 07:59:00 Test Item Value Reference Range Interpretation Comments POC-GLUCOSE METER 81 mg/dL 70-[address] [facility] [address] ([facility]) (test code = [facility] Eduin [facility] [address] 1538) COMPREHENSIVE METABOLIC [id number] 06:23:00 Test Item Value Reference Range Interpretation [...] S NOT APPLICABLE FOR DIALYSIS PATIEN TS. [id number] 06:17:00 Test Item Value Reference Range Interpretation Comments MAGNESIUM (BEAKER) (test code = 1.8 mg/dL 1.6-2.6 627) HEPATIC FUNCTION [id number] 06:17:00 Test Item Value Reference Range Interpretation [...] code = 779 U/L 6-55 H 347) [id number] 06:00:00 Test Item Value Reference Range Interpretation Comments FIBRINOGEN LEVEL (BEAKER) (test 390 mg/dl 225-434 code = 658) [id number] 06:00:00 Test Item Value Reference Range Interpretation Comments PARTIAL THROMBOPLASTIN TIME 40.2 seconds 22.5-36.0 H (AKER) (test code = 760) PROTHROMBIN [id number] 05:59:00 Test Item Value Reference Range Interpretation Comments PROTIME ([facility]) (test code = 14.6 seconds 11.7-14.7 759) INR ([facility]) (test code = 370) 1.2 <=5.9 RECOMMENDED COUMADIN/WARFARIN INR THERAPY RANGESSTANDARD DOSE: 2.0 - 3.0 Includes: PROPHYLAXIS forvenous thrombosis, systemic embolization; TREATMENT for venous thrombosis and/or pulmonary embolus.HIGH RISK: Target INR is 2.5-3.5 for patients with mechanical heart valves.POCT-GLUCOSE [id number] 21:46:00 Test Item Value Reference Range Interpretation Comments POC-GLUCOSE METER 153 mg/dL 70-110 H TESTED AT [place] [address] ([facility]) (test code = [place] [facility] 1538) [address] POCT-GLUCOSE [id number] 18:47:00 Test Item Value Reference Range Interpretation Comments POC-GLUCOSE METER 181 mg/dL 70-110 H TESTED AT [place] [address] ([facility]) (test code = [place] [facility] 1538) [address] POCT-GLUCOSE [id number] 12:40:00 Test Item Value Reference Range Interpretation Comments POC-GLUCOSE METER 178 mg/dL 70-110 H TESTED AT [place] [address] ([facility]) (test code = [place] [facility] 1538) [address] POCT-GLUCOSE [id number] 07:51:00 Test Item Value Reference Range Interpretation Comments POC-GLUCOSE METER 166 mg/dL 70-[address] [facility] [address] (BEAKER) (test code = [place] 153) [address] COMPREHENSIVE METABOLIC [id number] 03:26:00 Test Item Value Reference Range Interpretation [...] S NOT APPLICABLE FOR DIALYSIS PATIEN TS. [id number] 03:22:00 Test Item Value Reference Range Interpretation Comments MAGNESIUM (BEAKER) (test code = 1.4 mg/dL 1.6-2.6 L 627) HEPATIC FUNCTION [id number] 03:22:00 Test Item Value Reference Range Interpretation [...] code = 1009 U/L 6-55 H 347) [id number] 03:12:00 Test Item Value Reference Range Interpretation Comments AMMONIA (BEAKER) (test code = 348) 29 mol/L 18-72 [id number] 03:10:00 Test Item Value Reference Range Interpretation Comments PARTIAL THROMBOPLASTIN TIME 42.3 seconds 22.5-36.0 H (BEAKER) (test code = 760) PROTHROMBIN [id number] 03:09:00 Test Item Value Reference Range Interpretation Comments PROTIME (BEAKER) (test code = 16.4 seconds 11.7-14.7 H 759) INR (BEAKER) (test code = 370) 1.3 <=5.9 RECOMMENDED COUMADIN/WARFARIN INR THERAPY RANGESSTANDARD DOSE: 2.0 - 3.0 Includes: PROPHYLAXIS forvenous thrombosis, systemic embolization; TREATMENT for venous thrombosis and/or pulmonary embolus.HIGH RISK: Target INR is 2.5-3.5 for patients with mechanical heart valves.[id number] 03:09:00 Test Item Value Reference Range Interpretation Comments FIBRINOGEN LEVEL (BEAKER) (test 413 mg/dl 225-434 code = 658) CBC W/PLT COUNT & AUTO [id number] 03:09:00 Test Item Value Reference Range Interpretation [...] L 0.00-0.20 (test code = 417) 0.00POCT-GLUCOSE [id number] 22:33:00 Test Item Value Reference Range Interpretation Comments POC-GLUCOSE METER 230 mg/dL 70-[address] [facility] [address] (BEAKER) (test code = [place] 1538) [address] POCT-GLUCOSE [id number] 18:17:00 Test Item Value Reference Range Interpretation Comments POC-GLUCOSE METER 222 mg/dL 70-[address] [facility] [address] (BEAKER) (test code = [place] 1538) [address] COMPREHENSIVE METABOLIC [id number] 16:59:00 Test Item Value Reference Range Interpretation [...] PATIEN TS. PERIPHERAL BLOOD SMEAR - PATHOLOGIST [id number] 15:30:00 Test Item Value Reference Range Interpretation Comments RBC MORPHOLOGY Polychromasia (BEAKER) (test code = 2846) RBC MORPHOLOGY Anisocytosis (BEAKER) (test code = 66944) PERIPHERAL SMR REVIEW Cell counts confirmed (MADIE) (test code = 2640) [id number] Josefina Lara M.D. ([facility]) (test code = (electronic signature) 0563) PROTHROMBIN [id number] 15:12:00 Test Item Value Reference Range Interpretation Comments PROTIME (MADIE) (test code = 16.6 seconds 11.7-14.7 H 759) [facility]) (test code = 370) 1.4 <=5.9 RECOMMENDED COUMADIN/WARFARIN INR THERAPY RANGESSTANDARD DOSE: 2.0 - 3.0 Includes: PROPHYLAXIS forvenous thrombosis, systemic embolization; TREATMENT for venous thrombosis and/or pulmonary embolus.HIGH RISK: Target INR is 2.5-3.5 for patients with mechanical heart valves.ANTI-NUCLEAR ANTIBODY (IVETTE)2017-01-04 14:32:00 Test Item Value Reference Range Interpretation Comments ANTI-NUCLEAR ANTIBODY (IVETTE) ([facility]) Negative Negative (test code = 418) POCT-GLUCOSE [id number] 12:47:00 Test Item Value Reference Range Interpretation Comments POC-GLUCOSE METER 212 mg/dL 70-[address] [facility] [address] ([facility]) (test code = [facility] 1538) [address] [id number] 12:34:00 Test Item Value Reference Range Interpretation Comments RPR SCREEN (MADIE) (test code = Nonreactive Nonreactive 420) CLOSTRIDIUM DIFFICILE TOXIN [id number] 10:12:00 Test Item Value Reference Range Interpretation Comments CLOSTRIDIUM DIFFICILE TOXIN, PCR Not Detected Not Detected ([facility]) (test code = 1525) This [...] Reference Range Change-Adult onlyNew: 60.0-150.0 Previous: 50.0-150.0POCT-GLUCOSE [id number] 06:40:00 Test Item Value Reference Range Interpretation Comments POC-GLUCOSE METER 167 mg/dL 70-[address] [facility] [address] (AKER) (test code = [place] 1538) [address] COMPREHENSIVE METABOLIC [id number] 04:08:00 Test Item Value Reference Range Interpretation [...] ESTIM ATED GFR. Specimen slightly ictericHEPATIC FUNCTION [id number] 04:06:00 Test Item Value Reference Range Interpretation [...] 1091 U/L 6-55 H 347) Specimen slightly [id number] 04:01:00 Test Item Value Reference Range Interpretation Comments FIBRINOGEN LEVEL (BEAKER) (test 379 mg/dl 225-434 code = 658) [id number] 04:01:00 Test Item Value Reference Range Interpretation Comments PARTIAL THROMBOPLASTIN TIME 40.7 seconds 22.5-36.0 H (BEAKER) (test code = 760) PROTHROMBIN [id number] 04:00:00 Test Item Value Reference Range Interpretation [...] L 0.00-0.20 (test code = 417) 0.00POCT-GLUCOSE [id number] 00:19:00 Test Item Value Reference Range Interpretation Comments POC-GLUCOSE METER 159 mg/dL 70-[address] [facility] [address] [facility] (test code = [facility] 1538) [address] POCT-GLUCOSE [id number] 18:56:00 Test Item Value Reference Range Interpretation Comments POC-GLUCOSE METER 192 mg/dL 70-110 H TESTED AT [place] [address] ([facility]) (test code = [facility] 1538) [address] COMPREHENSIVE METABOLIC [id number] 16:55:00 Test Item Value Reference Range Interpretation [...] CALCULATE ESTIM ATED GFR. Specimen slightly ictericPROTHROMBIN [id number] 16:37:00 Test Item Value Reference Range Interpretation Comments PROTIME (BEAKER) (test code = 20.9 seconds 11.7-14.7 H 759) INR (BEAKER) (test code = 370) 1.8 <=5.9 RECOMMENDED COUMADIN/WARFARIN INR THERAPY RANGESSTANDARD DOSE: 2.0 - 3.0 Includes: PROPHYLAXIS forvenous thrombosis, systemic embolization; TREATMENT for venous thrombosis and/or pulmonary embolus.HIGH RISK: Target INR is 2.5-3.5 for patients with mechanical heart valves.HEPATITIS B SURFACE [id number] 14:05:00 Test Item Value Reference Range Interpretation Comments HEPATITIS B SURFACE ANTIBODY < mIU/mL <8.0 (BEAKER) (test code = 647) HEPATITIS B CORE ANTIBODY, [id number] 13:43:00 Test Item Value Reference Range Interpretation Comments HEPATITIS B CORE TOTAL ANTIBODY Nonreactive Nonreactive (BEAKER) (test code = 497) BLOOD GAS, [id number] 13:35:00 Test Item Value Reference Range Interpretation [...] code = 1819) 28.0 % URINALYSIS W/ [id number] 13:16:00 Test Item Value Reference Range Interpretation [...] 1584) SOURCE(BEAKER) (test code = Urine, [place] 8399) VITAMIN D, 04-[id number] 13:14:00 Test Item Value Reference Range Interpretation Comments VITAMIN D 25-OH (BEAKER) (test code = < ng/mL 13.0-47.8 L 2764) ALPHA FETOPROTEIN (AFP), TUMOR [id number] 13:06:00 Test Item Value Reference Range Interpretation Comments ALPHA-FETOPROTEIN (BEAKER) (test code < ng/mL <10.0 = 1094) Effective 05/08/2014: Reference Range ChangeNew: <10.0 Previous: 0.0-8.0 HEMOGLOBIN [id number] 13:05:00 Test Item Value Reference Range Interpretation Comments HEMOGLOBIN A1C (BEAKER) (test code = 7.6 % 4.3-6.1 H 368) CARCINOEMBRYONIC ANTIGEN (CEA)2017-01-03 12:59:00 Test Item Value Reference Range Interpretation Comments CARCINOEMBRYONIC ANTIGEN (BEAKER) 2.0 ng/mL 0.0-5.0 (test code = 685) [id number] 12:59:00 Test Item Value Reference Range Interpretation Comments FERRITIN (BEAKER) (test code = 1841 ng/mL 5-275 H 361) Effective 05/08/2014: Reference Range ChangeNew: Male 5-275 Previous: Male 22-322 Female 5-275 Female 52-840B12502-10-16 12:58:00 Test Item Value Reference Range Interpretation Comments T4 TOTAL (BEAKER) (test code = 895) 4.5 ug/dL 4.9-11.7 L [id number] 12:58:00 Test Item Value Reference Range Interpretation Comments THYROID STIMULATING HORMONE 1.79 uIU/mL 0.35-4.94 (BEAKER) (test code = 772) [id number] 12:58:00 Test Item Value Reference Range Interpretation Comments T3 TOTAL (BEAKER) (test code = 656) 34 ng/dL 48-159 L Effective 05/08/2014: Reference Range ChangeNew: 48-159 Previous: 60-181 CALCIUM, [id number] 12:47:00 Test Item Value Reference Range Interpretation Comments CALCIUM IONIZED (BEAKER) (test 1.05 mmol/L 1.12-1.27 L code = 698) PH, BLOOD (BEAKER) (test code = 7.43 1810) [id number] 12:42:00 Test Item Value Reference Range Interpretation [...] % 20-55 (test code = 2590) URIC [id number] 12:40:00 Test Item Value Reference Range Interpretation Comments URIC ACID (BEAKER) (test code = 16.0 mg/dL 2.6-7.2 H 773) Specimen slightly ictericLIPID [id number] 12:40:00 Test Item Value Reference Range Interpretation [...] 160-189 Very High >=190 Specimen slightly ictericBILIRUBIN, [id number] 12:40:00 Test Item Value Reference Range Interpretation Comments BILIRUBIN DIRECT (BEAKER) (test 2.4 mg/dL 0.1-0.5 H code = 706) GAMMA GLUTAMYL TRANSFERASE (GGT)2017-01-03 12:40:00 Test Item Value Reference Range Interpretation Comments GAMMA GLUTAMYL TRANSFERASE (BEAKER) 53 U/L 9-64 (test code = 364) Specimen slightly kbybvfpVUNCTNZ0021-10-18 12:39:00 Test Item Value Reference Range Interpretation Comments ETHANOL (BEAKER) (test code = 400) < mg/dL <=10 SCREEN, [id number] 12:36:00 Test Item Value Reference Range Interpretation Comments TEST URINE (BEAKER) (test Negative code = 583) POCT-GLUCOSE [id number] 12:34:00 Test Item Value Reference Range Interpretation Comments POC-GLUCOSE METER 189 mg/dL 70-[address] [facility] [address] (BEAKER) (test code = [place] 1538) [address] HIV-1 ANTIGEN WITH HIV-1/2 [id number] 11:58:00 Test Item Value Reference Range Interpretation Comments HIV-1 ANTIGEN WITH HIV 1\\T\\2 Nonreactive Nonreactive ANTIBODY (2) (BEAKER) (test code = 2586) TROPONIN [id number] 09:44:00 Test Item Value Reference Range Interpretation [...] Previous: 0.0-4.9CK-MB Reference Range:<6.7 Normal6.7-10.0 Borderline>10.0 AbnormalACETAMINOPHEN [id number] 08:31:00 Test Item Value Reference Range Interpretation Comments ACETAMINOPHEN LEVEL (BEAKER) (test < ug/mL 10.0-30.0 L code = 344) TROPONIN [id number] 05:53:00 Test Item Value Reference Range Interpretation [...] acute neurological disease, and persistent tachyarrhythmia.BASIC METABOLIC [id number] 05:53:00 Test Item Value Reference Range Interpretation [...] TO CALCULA TE ESTIMATED GFR. Specimen slightly htoofgjICVZXPMTUB5389-46-60 05:52:00 Test Item Value Reference Range Interpretation Comments PHOSPHORUS (BEAKER) (test code = 5.7 mg/dL 2.3-4.7 H 604) HEPATIC FUNCTION [id number] 05:52:00 Test Item Value Reference Range Interpretation [...] Specimen slightly ictericCREATINE KINASE (CK), TOTAL AND [id number] 05:52:00 Test Item Value Reference Range Interpretation Comments CREATINE KINASE TOTAL (BEAKER) 341 U/L 29-200 H (test code = 380) CREATINE KINASE-MB (BEAKER) (test 5.4 ng/mL 0.0-6.6 code = 750) CREATINE KINASE-MB INDEX (BEAKER) 1.6 % (test code = 395) Effective 05/08/2014: CK-MB Reference Range ChangeNew: 0.0-6.6 Previous: 0.0-4.9CK-MB Reference Range:<6.7 Normal6.7-10.0 Borderline>10.0 AbnormalCBC W/PLT COUNT & AUTO [id number] 05:48:00 Test Item Value Reference Range Interpretation [...] K/ L 0.00-0.20 (test code = 417) 0.43NYMGUVLVUO0164-51-63 05:09:00 Test Item Value Reference Range Interpretation Comments FIBRINOGEN LEVEL (BEAKER) (test 427 mg/dl 225-434 code = 658) [id number] 05:09:00 Test Item Value Reference Range Interpretation Comments PARTIAL THROMBOPLASTIN TIME 36.2 seconds 22.5-36.0 H (BEAKER) (test code = 760) PROTHROMBIN TIME/[id number] 05:08:00 Test Item Value Reference Range Interpretation Comments PROTIME (BEAKER) (test code = 22.8 seconds 11.7-14.7 H 759) INR (BEAKER) (test code = 370) 2.0 <=5.9 RECOMMENDED COUMADIN/WARFARIN INR THERAPY RANGESSTANDARD DOSE: 2.0 - 3.0 Includes: PROPHYLAXIS forvenous thrombosis, systemic embolization; TREATMENT for venous thrombosis and/or pulmonary embolus.HIGH RISK: Target INR is 2.5-3.5 for patients with mechanical heart valves.HEPATITIS PANEL, [id number] 03:40:00 Test Item Value Reference Range Interpretation Comments HEPATITIS A IGM ANTIBODY (BEAKER) Nonreactive Nonreactive (test code = 498) HEPATITIS B CORE IGM ANTIBODY Nonreactive Nonreactive (BEAKER) (test code = 645) HEPATITIS C ANTIBODY (BEAKER) Nonreactive Nonreactive (test code = 367) HEPATITIS B SURFACE ANTIGEN (2) Nonreactive Nonreactive (BEAKER) (test code = 2585) CREATININE, RANDOM [id number] 03:18:00 Test Item Value Reference Range Interpretation Comments CREATININE URINE (BEAKER) (test 118.7 mg/dL code = 375) Reference Range: No NormalsSODIUM, RANDOM [id number] 03:18:00 Test Item Value Reference Range Interpretation Comments SODIUM URINE (BEAKER) (test code = 60 meq/L 243) Reference Range: No NormalsUREA NITROGEN, RANDOM [id number] 03:18:00 Test Item Value Reference Range Interpretation Comments UREA NITROGEN URINE (BEAKER) (test 303 mg/dL code = 538) Reference Range: No MwvzlmmHHPUVZT0233-04-28 03:07:00 Test Item Value Reference Range Interpretation Comments AMMONIA (BEAKER) (test code = 348) 48 mol/L 18-72 [id number] 02:57:00 Test Item Value Reference Range Interpretation [...] within 95-100% range. URINALYSIS W/ REFLEX URINE [id number] 02:53:00 Test Item Value Reference Range Interpretation [...] = 514) SOURCE(BEAKER) (test code = 2795) [id number] 02:49:00 Test Item Value Reference Range Interpretation Comments PARTIAL THROMBOPLASTIN TIME 39.4 seconds 22.5-36.0 H (BEAKER) (test code = 760) PROTHROMBIN TIME/[id number] 02:48:00 Test Item Value Reference Range Interpretation Comments PROTIME (BEAKER) (test code = 22.0 seconds 11.7-14.7 H 759) INR (BEAKER) (test code = 370) 1.9 <=5.9 RECOMMENDED COUMADIN/WARFARIN INR THERAPY RANGESSTANDARD DOSE: 2.0 - 3.0 Includes: PROPHYLAXIS forvenous thrombosis, systemic embolization; TREATMENT for venous thrombosis and/or pulmonary embolus.HIGH RISK: Target INR is 2.5-3.5 for patients with mechanical heart valves.[id number] 02:48:00 Test Item Value Reference Range Interpretation Comments FIBRINOGEN LEVEL (BEAKER) (test 421 mg/dl 225-434 code = 658) BLOOD GAS, [id number] 02:43:00 Test Item Value Reference Range Interpretation [...] 21.0 % CBC W/PLT COUNT & AUTO [id number] 02:43:00 Test Item Value Reference Range Interpretation [...] code = 417) 0.00LACTIC ACID, VENOUS, WHOLE [id number] 02:35:00 Test Item Value Reference Range Interpretation Comments LACTATE BLOOD VENOUS (2) (BEAKER) 0.8 mmol/L 0.5-2.2 (test code = 2872) Effective 10/23/2015: Units/Reference Range ChangeNew: 0.5-2.2 mmol/L Previous: 5-20 mg/dLSpecimen slightly vjbvaelMNRAKOXQTLGC3990-36-84 11:32:00 Test Item Value Reference Range Interpretation Comments AGAP (test code = AGAP) 14.6 10.0-20.0 [facility]kjvlnpSKOCMFTEMBJD2062-38-69 11:32:00 Test Item Value Reference Range Interpretation Comments eGFR (test code = eGFR) 33 [facility] HospitalEogvyzvLCJKTAIQQBXH2051-27-26 11:32:00 Test Item Value Reference Range Interpretation Comments Calcium Lvl (test code = Calcium Lvl) 8.3 8.5-10.5 [facility] HospitalTvvlbbuNMYXMZVEGWFG0906-48-06 11:32:00 Test Item Value Reference Range Interpretation Comments Glucose Lvl (test code = Glucose Lvl) 81 70-99 [facility] HospitalXnrgwuxOXLJZKBNAKGI7404-09-87 11:32:00 Test Item Value Reference Range Interpretation Comments Creatinine Lvl (test code = Creatinine 1.95 0.50-1.40 Lvl) [facility] HospitalRvsysbvZPQSIUSWPHEN7912-97-24 11:32:00 Test Item Value Reference Range Interpretation Comments BUN (test code = BUN) 55 7-22 [facility] HospitalVikvcvmMNNSKXUAHUXJ1766-36-65 11:32:00 Test Item Value Reference Range Interpretation Comments CO2 (test code = CO2) 19 24-32 [facility] HospitalKcnnpcyNSEXEUBYILAR7456-12-28 11:32:00 Test Item Value Reference Range Interpretation Comments Chloride Lvl (test code = Chloride Lvl) 110 95-109 [facility] HospitalRikmebeKZUEZCYVTKLO2474-82-34 11:32:00 Test Item Value Reference Range Interpretation Comments Sodium Lvl (test code = Sodium Lvl) 139 135-145 [facility]enWiusekxLNBQQSMEAIIN4272-06-98 11:32:00 Test Item Value Reference Range Interpretation Comments Potassium Lvl (test code = Potassium 4.6 3.5-5.1 Lvl) [facility] HospitalBucsqclGMABVLYICG9376-88-57 11:32:00 Test Item Value Reference Range Interpretation Comments Lymphocytes (test code = Lymphocytes) 30.4 20.0-40.0 [facility] HospitalPsflafdYESHXATFLN5144-66-05 11:32:00 Test Item Value Reference Range Interpretation Comments Eosinophils (test code = 4.5 See_Comment [A utomated message] The Eosinophils) system which ge nerated this result tra nsmitted reference range : <=4.0. The reference r leo was not used to int erpret this result as normal/abnormal . [facility] HospitalQuxreszGOADIZXGWV6972-76-42 11:32:00 Test Item Value Reference Range Interpretation Comments Monocytes (test code = Monocytes) 13.7 2.0-12.0 [facility] HospitalKwtkvhmZYIRCTDJYZ6669-04-70 11:32:00 Test Item Value Reference Range Interpretation Comments Segs-Bands # (test code = Segs-Bands #) 2.6 1.5-8.1 [facility] HospitalYjrzskeOMKCRRRFGL2530-07-65 11:32:00 Test Item Value Reference Range Interpretation Comments Basophils (test code = 0.7 See_Comment [Aut omated message] The Basophils) system which ge nerated this result tra nsmitted reference range : <=1.0. The reference r leo was not used to int erpret this result as normal/abnormal . [facility] HospitalWeophnhZUQURDTZTM6317-94-59 11:32:00 Test Item Value Reference Range Interpretation Comments Monocytes # (test code 0.7 See_Comment [Aut omated message] The = Monocytes #) system which generated this result tra nsmitted reference range : <=0.8. The reference r leo was not used to int erpret this result as normal/abnormal . [facility] HospitalKomjdumFLDORCYNTD6985-36-21 11:32:00 Test Item Value Reference Range Interpretation Comments Lymphocytes # (test code = Lymphocytes 1.6 1.0-5.5 #) [facility] HospitalHxzghehASRELLKYUC7897-70-15 11:32:00 Test Item Value Reference Range Interpretation Comments Eosinophils # (test code 0.2 See_Comment [A utomated message] The = Eosinophils #) system [employer] generated this result tra nsmitted reference range : <=0.5. The reference r leo was not used to int erpret this result as normal/abnormal . [facility] HospitalRqyvxcbWIAVMCMPDC1238-48-52 11:32:00 Test Item Value Reference Range Interpretation Comments Segs (test code = Segs) 50.7 45.0-75.0 [facility] HospitalZbruykiDNJOYRECMJ3115-82-31 11:32:00 Test Item Value Reference Range Interpretation [...] iron deficiency anemia, and renal disease. CPT: 65022 [facility] HospitalWcacntfHSRVAFMMVJ2122-28-73 11:32:00 Test Item Value Reference Range Interpretation Comments Hct (test code = Hct) 28.1 36.0-48.0 [facility] HospitalAngbrydVCQZWGUUBM9794-41-94 11:32:00 Test Item Value Reference Range Interpretation Comments RBC (test code = RBC) 3.39 4.20-5.40 [facility] HospitalXpnwosvTEETVRJLHR7066-43-61 11:32:00 Test Item Value Reference Range Interpretation Comments Hgb (test code = Hgb) 8.9 12.0-16.0 [facility] HospitalJeoqsnuAWJAEJOMVI3084-82-93 11:32:00 Test Item Value Reference Range Interpretation Comments WBC (test code = WBC) 5.1 3.7-10.4 [facility] HospitalSkdmozyENQLSTAKMV0832-74-60 11:32:00 Test Item Value Reference Range Interpretation Comments MPV (test code = MPV) 11.3 7.4-10.4 [facility] HospitalIwomcyxGWQJXXLILR5156-16-61 11:32:00 Test Item Value Reference Range Interpretation Comments Platelet (test code = Platelet) 118 133-450 [facility] HospitalYihlgjwOIVNKOORWK6059-86-14 11:32:00 Test Item Value Reference Range Interpretation Comments MCHC (test code = MCHC) 31.8 32.0-36.0 [facility] HospitalNnoysvvQCUKUIQDCP5484-53-43 11:32:00 Test Item Value Reference Range Interpretation Comments RDW (test code = RDW) 18.0 11.5-14.5 [facility] HospitalVgmctruQRIOXSMWTK1638-71-66 11:32:00 Test Item Value Reference Range Interpretation Comments MCV (test code = MCV) 83.0 80.0-98.0 [facility] HospitalMlrwjnpPUBVKYWXWQ0782-78-35 11:32:00 Test Item Value Reference Range Interpretation Comments MCH (test code = MCH) 26.4 pg 27.0-31.0 [facility]LsffavvVMRBJDUIAK8143-92-58 11:32:00 Test Item Value Reference Range Interpretation Comments C3 Complement (test code = C3 137 88-201 Complement) [facility]neyAixkvdzWXGYZOYAXO2461-55-64 11:32:00 Test Item Value Reference Range Interpretation Comments HIV. (test code = Negative *NA*(07/30/16 HIV.) 5:32 AM) [facility] HospitalRdvcdzbXROYGCDPAC0342-16-88 11:05:00 Test Item Value Reference Range Interpretation [...] iron deficiency anemia, and renal disease. CPT: 65456 [facility] McKinneyBokoeuvLQDNQRTFQE5873-37-66 11:05:00 Test Item Value Reference Range Interpretation Comments HIV. (test code = Negative *NA*(07/29/16 HIV.) 5:05 AM) [facility] McKinneyKydudjuAWKEWLNYVE2860-93-24 11:05:00 Test Item Value Reference Range Interpretation Comments C3 Complement (test code = C3 92 88-201 Complement) [facility]2017-02-07 15:50:00 Test Item Value Reference Range Interpretation Comments eGFR (test code = eGFR) 25 [facility]2017-02-07 15:50:00 Test Item Value Reference Range Interpretation Comments BUN (test code = BUN) 55 7-22 [facility]2017-02-07 15:50:00 Test Item Value Reference Range Interpretation Comments CO2 (test code = CO2) 23 24-32 [facility]2017-02-07 15:50:00 Test Item Value Reference Range Interpretation Comments Chloride Lvl (test code = Chloride Lvl) 109 95-109 [facility]2017-02-07 15:50:00 Test Item Value Reference Range Interpretation Comments Glucose Lvl (test code = Glucose Lvl) 101 70-99 [facility]2017-02-07 15:50:00 Test Item Value Reference Range Interpretation Comments Potassium Lvl (test code = Potassium 4.0 3.5-5.1 Lvl) [facility]2017-02-07 15:50:00 Test Item Value Reference Range Interpretation Comments Sodium Lvl (test code = Sodium Lvl) 141 135-145 [facility]2017-02-07 15:50:00 Test Item Value Reference Range Interpretation Comments AGAP (test code = AGAP) 13.0 10.0-20.0 [facility]2017-02-07 15:50:00 Test Item Value Reference Range Interpretation Comments Calcium Lvl (test code = Calcium Lvl) 7.7 8.5-10.5 [facility]2017-02-07 15:50:00 Test Item Value Reference Range Interpretation Comments Creatinine Lvl (test code = Creatinine 2.49 0.50-1.40 Lvl) [facility] HospitalDszsrmnWHMJANVERM4180-47-46 15:50:00 Test Item Value Reference Range Interpretation Comments PT (test code = PT) 14.8 s 12.0-14.7 [facility] HospitalWgiekqxQQFYWIXEXK9833-77-09 15:50:00 Test Item Value Reference Range Interpretation Comments PTT (test code = PTT) 40.8 s 22.9-35.8 [facility] HospitalIqeobbeAYVWUFVBTI6824-88-17 15:50:00 Test Item Value Reference Range Interpretation Comments INR (test code = INR) 1.14 0.85-1.17 [facility] FallsLoqhegjGGKIDFRRRI7908-85-72 15:50:00 Test Item Value Reference Range Interpretation Comments C3 Complement (test code = C3 94 88-201 Complement) [facility] HospitalQsuhkmxTDKSCQJBHH7949-49-60 10:35:00 Test Item Value Reference Range Interpretation Comments Lymphocytes # (test code = Lymphocytes 1.7 1.0-5.5 #) [facility] HospitalKthsjexXXIBUAQOIT7766-92-26 10:35:00 Test Item Value Reference Range Interpretation Comments Segs-Bands # (test code = Segs-Bands #) 2.7 1.5-8.1 [facility] HospitalXgmuajfOHRPKEHJRW5951-16-01 10:35:00 Test Item Value Reference Range Interpretation Comments Eosinophils # (test code 0.1 See_Comment [A utomated message] The = Eosinophils #) system wh h generated this result tra nsmitted reference range : <=0.5. The reference r leo was not used to int erpret this result as normal/abnormal . [facility] HospitalWlmztdsCTUQWYAHYL4148-35-88 10:35:00 Test Item Value Reference Range Interpretation Comments Monocytes # (test code 0.7 See_Comment [Aut omated message] The = Monocytes #) system which generated this result tra nsmitted reference range : <=0.8. The reference r leo was not used to int erpret this result as normal/abnormal . [facility] HospitalVhuhpoyJLTQXHTPIF2954-93-54 10:35:00 Test Item Value Reference Range Interpretation Comments Segs (test code = Segs) 51.3 45.0-75.0 [facility] HospitalCwjoueeUOWDQBKEFK7511-23-15 10:35:00 Test Item Value Reference Range Interpretation Comments Lymphocytes (test code = Lymphocytes) 31.6 20.0-40.0 [facility] HospitalFwwpulzUYTMOSGLRQ2255-37-13 10:35:00 Test Item Value Reference Range Interpretation Comments Monocytes (test code = Monocytes) 14.1 2.0-12.0 [facility] HospitalXgelirxYUILSFLTXZ0571-34-09 10:35:00 Test Item Value Reference Range Interpretation Comments Eosinophils (test code = 2.6 See_Comment [A utomated message] The Eosinophils) system which ge nerated this result tra nsmitted reference range : <=4.0. The reference r leo was not used to int erpret this result as normal/abnormal . [facility] HospitalAxyfwziKECHMXQDAA8301-27-49 10:35:00 Test Item Value Reference Range Interpretation Comments Basophils (test code = 0.4 See_Comment [Aut omated message] The Basophils) system which ge nerated this result tra nsmitted reference range : <=1.0. The reference r leo was not used to int erpret this result as normal/abnormal . [facility] HospitalJclwwhnOUGXSCHEZI0860-62-58 10:35:00 Test Item Value Reference Range Interpretation Comments PB Smear Path Peripheral blood smear shows (test code = PB hypochromic normocytic Smear Path) anemia with anisopoikilocytsosis, no increase in schistocytes, slight polychromasia, a few estella cells, moderate thrombocytopenia. Impression: (1) no evidence of microangiopathic hemolysis, (2) RBC morphology is suggestive of anemia of chronic disease or iron deficiency anemia, and renal disease. CPT: 32324 [facility] HospitalJooxqhzXJFZESPADW8148-62-58 10:35:00 Test Item Value Reference Range Interpretation Comments Hct (test code = Hct) 29.3 36.0-48.0 [place] [address]-02-07 10:35:00 Test Item Value Reference Range Interpretation Comments Hgb (test code = Hgb) 9.2 12.0-16.0 [place] [address]-02-07 10:35:00 Test Item Value Reference Range Interpretation Comments RBC (test code = RBC) 3.54 4.20-5.40 [facility] HospitalHrkirchZOUKPFLIFV2790-11-18 10:35:00 Test Item Value Reference Range Interpretation Comments WBC (test code = WBC) 5.3 3.7-10.4 [facility] HospitalFcfogbcYMSEHRILLQ4429-11-55 10:35:00 Test Item Value Reference Range Interpretation Comments Platelet (test code = Platelet) 87 133-450 [facility] HospitalWimeozfODCZNLHFFE3813-79-74 10:35:00 Test Item Value Reference Range Interpretation Comments MCHC (test code = MCHC) 31.4 32.0-36.0 [facility] HospitalLdjabwuUDOWMJTEVB4105-14-42 10:35:00 Test Item Value Reference Range Interpretation Comments RDW (test code = RDW) 17.9 11.5-14.5 [facility] HospitalLfldlyaAMRZTUKJPX6546-48-73 10:35:00 Test Item Value Reference Range Interpretation Comments MPV (test code = MPV) 10.9 7.4-10.4 [facility] HospitalIeskxucBYJRMZMPXB9046-88-14 10:35:00 Test Item Value Reference Range Interpretation Comments MCH (test code = MCH) 26.0 pg 27.0-31.0 [facility] HospitalEbpsqsaMZRFDKBZNI5283-54-02 10:35:00 Test Item Value Reference Range Interpretation Comments MCV (test code = MCV) 82.8 80.0-98.0 [facility] FallsZrfudjtUAVJNVPZXM7920-85-09 10:35:00 Test Item Value Reference Range Interpretation Comments HIV. (test code = Negative *NA*(07/28/16 HIV.) 4:35 AM) [facility] FallsCARDIAC DNTTRZT4187-11-97 10:22:00 Test Item Value Reference Range Interpretation Comments Total CK (test code = Total CK) 190 12-191 [facility]2017-02-06 10:22:00 Test Item Value Reference Range Interpretation Comments Calcium Lvl (test code = Calcium Lvl) 7.8 8.5-10.5 [facility]2017-02-06 10:22:00 Test Item Value Reference Range Interpretation Comments CO2 (test code = CO2) 21 24-32 [facility]2017-02-06 10:22:00 Test Item Value Reference Range Interpretation Comments Sodium Lvl (test code = Sodium Lvl) 140 135-145 [facility]2017-02-06 10:22:00 Test Item Value Reference Range Interpretation Comments Potassium Lvl (test code = Potassium 3.8 3.5-5.1 Lvl) [facility]2017-02-06 10:22:00 Test Item Value Reference Range Interpretation Comments Chloride Lvl (test code = Chloride Lvl) 106 95-109 [facility]2017-02-06 10:22:00 Test Item Value Reference Range Interpretation Comments Bili Total (test code = Bili Total) 0.4 0.2-1.3 [facility]2017-02-06 10:22:00 Test Item Value Reference Range Interpretation Comments Alk Phos (test code = Alk Phos) 74 39-136 [facility]2017-02-06 10:22:00 Test Item Value Reference Range Interpretation Comments eGFR (test code = eGFR) 19 [facility]2017-02-06 10:22:00 Test Item Value Reference Range Interpretation Comments Total Protein (test code = Total 5.2 6.4-8.4 Protein) [facility]2017-02-06 10:22:00 Test Item Value Reference Range Interpretation Comments ALT (test code = ALT) 822 See_Comment [Auto mated message] The system which ge nerated this result transmit rohit reference range : <=65. The reference range was not used to interpr et this result as reji l/abnormal. [facility]2017-02-06 10:22:00 Test Item Value Reference Range Interpretation Comments AST (test code = AST) 205 See_Comment [Auto mated message] The system which ge nerated this result transmit rohit reference range : <=37. The reference range was not used to interpr et this result as reji l/abnormal. [facility]2017-02-06 10:22:00 Test Item Value Reference Range Interpretation Comments Albumin Lvl (test code = Albumin Lvl) 1.8 3.5-5.0 [facility]2017-02-06 10:22:00 Test Item Value Reference Range Interpretation Comments BUN (test code = BUN) 54 7-22 [facility]2017-02-06 10:22:00 Test Item Value Reference Range Interpretation Comments Glucose Lvl (test code = Glucose Lvl) 143 70-99 [facility]2017-02-06 10:22:00 Test Item Value Reference Range Interpretation Comments Creatinine Lvl (test code = Creatinine 3.11 0.50-1.40 Lvl) [facility]2017-02-06 10:22:00 Test Item Value Reference Range Interpretation Comments B/C Ratio (test code = B/C Ratio) 17 6-25 [facility]2017-02-06 10:22:00 Test Item Value Reference Range Interpretation Comments AGAP (test code = AGAP) 16.8 10.0-20.0 [facility]2017-02-06 10:22:00 Test Item Value Reference Range Interpretation Comments Globulin (test code = Globulin) 3.4 2.7-4.2 [facility]2017-02-06 10:22:00 Test Item Value Reference Range Interpretation Comments A/G Ratio (test code = A/G Ratio) 0.5 0.7-1.6 [facility]2017-02-06 10:22:00 Test Item Value Reference Range Interpretation Comments Magnesium Lvl (test code = Magnesium 2.0 1.8-2.4 Lvl) [facility]2017-02-06 10:22:00 Test Item Value Reference Range Interpretation Comments Phosphorus (test code = Phosphorus) 3.7 2.5-4.5 [facility]FexlvvqDKTIEROOJC1668-86-77 10:22:00 Test Item Value Reference Range Interpretation Comments RDW (test code = RDW) 17.7 11.5-14.5 [facility] HospitalCmibqhtQQKLIFOQFJ6407-46-42 10:22:00 Test Item Value Reference Range Interpretation Comments MCHC (test code = MCHC) 32.9 32.0-36.0 [facility] HospitalIbkicykHUNEHSXMPF9343-48-61 10:22:00 Test Item Value Reference Range Interpretation Comments Hct (test code = Hct) 25.4 36.0-48.0 [facility] HospitalZexmrnkFOLDDKQHKG4191-64-22 10:22:00 Test Item Value Reference Range Interpretation Comments MCH (test code = MCH) 26.4 pg 27.0-31.0 [facility] HospitalQiksjgtNTVYQXGMSX9262-92-20 10:22:00 Test Item Value Reference Range Interpretation Comments MCV (test code = MCV) 80.3 80.0-98.0 [facility] HospitalUsdrduiMGPMNXWFMM5825-54-83 10:22:00 Test Item Value Reference Range Interpretation Comments MPV (test code = MPV) 11.4 7.4-10.4 [facility] HospitalUscfstfTQIPMGQQKH2882-56-14 10:22:00 Test Item Value Reference Range Interpretation Comments Platelet (test code = Platelet) 74 133-450 [facility] HospitalVttuqofGHJAHNAGEA3461-16-02 10:22:00 Test Item Value Reference Range Interpretation Comments RBC (test code = RBC) 3.16 4.20-5.40 [facility] HospitalNdjwdmmMMQRJWPTKU2012-64-43 10:22:00 Test Item Value Reference Range Interpretation Comments WBC (test code = WBC) 5.3 3.7-10.4 [facility] HospitalNwdiwqrSGLKAGUBHG9934-91-67 10:22:00 Test Item Value Reference Range Interpretation Comments Hgb (test code = Hgb) 8.4 12.0-16.0 [facility] HospitalHmcvabhWAOKSSRWDR6561-52-61 10:22:00 Test Item Value Reference Range Interpretation Comments Monocytes (test code = Monocytes) 14.5 2.0-12.0 [facility] HospitalBikcvdwOHWYKMFCGK1287-01-70 10:22:00 Test Item Value Reference Range Interpretation Comments Lymphocytes (test code = Lymphocytes) 29.8 20.0-40.0 [facility] HospitalCutrxepHLDONGRIOX1030-38-89 10:22:00 Test Item Value Reference Range Interpretation Comments Eosinophils # (test code 0.1 See_Comment [A utomated message] The = Eosinophils #) system whic h generated this result tra nsmitted reference range : <=0.5. The reference r leo was not used to int erpret this result as normal/abnormal . [facility] HospitalJnvqrtvCWILWIQLBS8222-52-85 10:22:00 Test Item Value Reference Range Interpretation Comments Monocytes # (test code 0.8 See_Comment [Aut omated message] The = Monocytes #) system which generated this result tra nsmitted reference range : <=0.8. The reference r leo was not used to int erpret this result as normal/abnormal . [facility] HospitalGbyunkjBBNDGOIBOV0749-77-90 10:22:00 Test Item Value Reference Range Interpretation Comments Segs-Bands # (test code = Segs-Bands #) 2.9 1.5-8.1 [facility] HospitalMyqasftILETBENIBY4681-75-95 10:22:00 Test Item Value Reference Range Interpretation Comments Lymphocytes # (test code = Lymphocytes 1.6 1.0-5.5 #) [facility] HospitalGmtttsxGJZMSKOMCB7350-31-96 10:22:00 Test Item Value Reference Range Interpretation Comments Basophils (test code = 0.4 See_Comment [Aut omated message] The Basophils) system which ge nerated this result tra nsmitted reference range : <=1.0. The reference r leo was not used to int erpret this result as normal/abnormal . [facility] HospitalSdjawpoLDCUMEFRVS7901-90-41 10:22:00 Test Item Value Reference Range Interpretation Comments Eosinophils (test code = 1.2 See_Comment [A utomated message] The Eosinophils) system which ge nerated this result tra nsmitted reference range : <=4.0. The reference r leo was not used to int erpret this result as normal/abnormal . [facility] HospitalWojxtqiCUFAELUJIA1100-23-65 10:22:00 Test Item Value Reference Range Interpretation Comments Segs (test code = Segs) 54.1 45.0-75.0 [facility] GHIUBWBLB5695-95-56 10:22:00 Test Item Value Reference Range Interpretation Comments Hgb A1C (test code = Hgb A1C) 8.9 [facility] FallsCARDIAC HPSBVAE1878-13-86 17:40:00 Test Item Value Reference Range Interpretation Comments Total CK (test code = Total CK) 344 12-191 [facility] McallenZybuizqOLSXOIEIUN3369-72-17 17:40:00 Test Item Value Reference Range Interpretation Comments IVETTE (test code = IVETTE) Positive *ABN*(07/26/16 11:40 AM) [facility] McallenQwwwpldVXKCDMFFKM9155-44-19 17:40:00 Test Item Value Reference Range Interpretation Comments 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 [facility] McallenNiumfznVFOFNNXHNE3637-96-99 17:40:00 Test Item Value Reference Range Interpretation Comments SS-B (La) Ab (test code = SS-B (La) Ab) no gt [facility] McallenHaunzzqHQNALSJKVT7505-87-19 17:40:00 Test Item Value Reference Range Interpretation Comments SS-A (Ro) Ab (test code = SS-A (Ro) Ab) no gt [facility] JeafjcuODVTVIBYNA1184-04-77 17:40:00 Test Item Value Reference Range Interpretation Comments DNA Ab (DS) (test Negative (07/26/16 11:40 code = DNA Ab (DS)) AM) [facility] McallenBfvqzstRWOJLMSTHP5583-09-41 17:40:00 Test Item Value Reference Range Interpretation Comments IVETTE Titer (test code = 1:40 *ABN*(07/26/16 IVETTE Titer) 11:40 AM) [facility] FallsURINE [id number] 17:40:00 Test Item Value Reference Range Interpretation Comments U Sodium (test code = U Sodium) 21 [facility] McallenQcertquDDYNCVQKFA5581-61-43 14:00:00 Test Item Value Reference Range Interpretation Comments INR (test code = INR) 1.11 0.85-1.17 [facility] McallenSwdmhqmAZENYQFRZA9812-64-80 14:00:00 Test Item Value Reference Range Interpretation Comments PT (test code = PT) 14.5 s 12.0-14.7 [facility] McallenXguyihjMJRUOTWRMR4540-94-96 14:00:00 Test Item Value Reference Range Interpretation Comments Hep A IgM (test code Negative *NA*(07/26/16 = Hep A IgM) 8:00 AM) [facility] FallsPfszwuyQVBITRDJUW0038-51-36 14:00:00 Test Item Value Reference Range Interpretation Comments Hep B Core IgM (test Negative *NA*(07/26/16 code = Hep B Core 8:00 AM) IgM) [facility]HnoyldyAFFHJWYXOI9330-53-09 14:00:00 Test Item Value Reference Range Interpretation Comments Hep C Ab (test code = Negative *NA*(07/26/16 Hep C Ab) 8:00 AM) [facility]neyAvtgmpmYUMHJGYUUS9285-24-31 14:00:00 Test Item Value Reference Range Interpretation Comments Hep Bs Ag (test code Negative *NA*(07/26/16 = Hep Bs Ag) 8:00 AM) [facility]2017-02-05 10:42:00 Test Item Value Reference Range Interpretation Comments B/C Ratio (test code = B/C Ratio) 17 6-25 [facility]2017-02-05 10:42:00 Test Item Value Reference Range Interpretation Comments ALT (test code = ALT) 1232 See_Comment [Auto mated message] The system which ge nerated this result transmit rohit reference range : <=65. The reference range was not used to interpr et this result as reji l/abnormal. [facility]2017-02-05 10:42:00 Test Item Value Reference Range Interpretation Comments A/G Ratio (test code = A/G Ratio) 0.5 0.7-1.6 [facility]2017-02-05 10:42:00 Test Item Value Reference Range Interpretation Comments Bili Total (test code = Bili Total) 0.3 0.2-1.3 [facility]2017-02-05 10:42:00 Test Item Value Reference Range Interpretation Comments Alk Phos (test code = Alk Phos) 79 39-136 [facility]2017-02-05 10:42:00 Test Item Value Reference Range Interpretation Comments AST (test code = AST) 586 See_Comment [Auto mated message] The system which ge nerated this result transmit rohit reference range : <=37. The reference range was not used to interpr et this result as reji l/abnormal. [facility] [id number] 10:42:00 Test Item Value Reference Range Interpretation Comments Total Protein (test code = Total 5.5 6.4-8.4 Protein) [facility] [id number] 10:42:00 Test Item Value Reference Range Interpretation Comments Globulin (test code = Globulin) 3.7 2.7-4.2 [facility] [id number] 10:42:00 Test Item Value Reference Range Interpretation Comments Albumin Lvl (test code = Albumin Lvl) 1.8 3.5-5.0 [facility] [id number] 10:42:00 Test Item Value Reference Range Interpretation Comments Magnesium Lvl (test code = Magnesium 2.1 1.8-2.4 Lvl) [facility] HospitalVerbicmUVZLGRBSVU8485-74-90 10:42:00 Test Item Value Reference Range Interpretation Comments Acanthocyte (test code = Acanthocyte) Slight [facility] HospitalVsxmowvXHWHWIJKQF1700-21-73 10:42:00 Test Item Value Reference Range Interpretation Comments Rouleaux (test code = Present *ABN*(07/26/16 Rouleaux) 4:42 AM) [facility] FallsJlreevcHDGZSTPJPX2922-80-06 10:42:00 Test Item Value Reference Range Interpretation Comments Anisocyte (test code = 1+ *ABN*(07/26/16 4:42 Anisocyte) AM) [facility] HospitalHbgodjnSLHNGBLNOA2895-77-68 10:42:00 Test Item Value Reference Range Interpretation Comments Basophils # (test code 0.1 See_Comment [Aut omated message] The = Basophils #) system which generated this result tra nsmitted reference range : <=0.2. The reference r leo was not used to int erpret this result as normal/abnormal . [facility] FallsNszkcedWRFPKZRBEV0395-25-69 10:42:00 Test Item Value Reference Range Interpretation Comments Large Plt (test code Moderate *ABN*(07/26/16 = Large Plt) 4:42 AM) [facility] FallsIberbfeVOXFSCWCPB9515-54-05 10:42:00 Test Item Value Reference Range Interpretation Comments C4 Complement (test code = C4 42 16-47 Complement) [facility] AND [id number] 16:34:00 Test Item Value Reference Range Interpretation Comments UA Sq Epi (test code = UA Sq Epi) None Seen [facility] AND [id number] 16:34:00 Test Item Value Reference Range Interpretation Comments UA Waxy Cast (test code = UA Waxy Cast) 1 [facility] AND [id number] 16:34:00 Test Item Value Reference Range Interpretation Comments UA Hyal Cast (test 4 See_Comment [Automat ed message] The code = UA Hyal Cast) system which generated this result transmit rohit reference range : <=2. The reference range was not used to interpr et this result as reji l/abnormal. [facility] AND [id number] 16:34:00 Test Item Value Reference Range Interpretation Comments UA Bacteria (test code = UA Occasional /HPF Bacteria) [facility] AND [id number] 16:34:00 Test Item Value Reference Range Interpretation Comments UA Mucus (test code = UA Mucus) Few /LPF [facility] AND [id number] 16:34:00 Test Item Value Reference Range Interpretation Comments UA Amorph Destiny (test code = Occasional /HPF UA Amorph Destiny) [facility] AND [id number] 16:34:00 Test Item Value Reference Range Interpretation Comments UA Leuk Est (test Negative (07/25/16 10:34 code = UA Leuk Est) AM) [facility] AND [id number] 16:34:00 Test Item Value Reference Range Interpretation Comments UA Nitrite (test code Negative (07/25/16 10:34 = UA Nitrite) AM) [facility] AND [id number] 16:34:00 Test Item Value Reference Range Interpretation Comments UA RBC (test code = 2 See_Comment [Automa rohit message] The UA RBC) system which ge nerated this result transmit rohit reference range : <=2. The reference range was not used to interpr et this result as reji l/abnormal. [facility] AND [id number] 16:34:00 Test Item Value Reference Range Interpretation Comments UA WBC (test code = 6 See_Comment [Automa rohit message] The UA WBC) system which ge nerated this result transmit rohit reference range : <=5. The reference range was not used to interpr et this result as reji l/abnormal. [facility] AND [id number] 16:34:00 Test Item Value Reference Range Interpretation Comments UA Urobilinogen (test code = UA 2.0 0.1-1.0 Urobilinogen) [facility] AND [id number] 16:34:00 Test Item Value Reference Range Interpretation Comments UA Ketones (test code = UA Negative mg/dL Ketones) [facility] AND [id number] 16:34:00 Test Item Value Reference Range Interpretation Comments UA Glucose (test code = UA Glucose) 70 mg/dL [facility] AND [id number] 16:34:00 Test Item Value Reference Range Interpretation Comments UA Blood (test code = Negative (07/25/16 10:34 UA Blood) AM) [facility] AND [id number] 16:34:00 Test Item Value Reference Range Interpretation Comments UA Bili (test code = Negative *NA*(07/25/16 UA Bili) 10:34 AM) [facility] AND [id number] 16:34:00 Test Item Value Reference Range Interpretation Comments UA Protein (test code = UA >=300 mg/dL Protein) [facility] AND [id number] 16:34:00 Test Item Value Reference Range Interpretation Comments UA Spec Grav (test code = UA Spec Grav) 1.012 [facility] AND [id number] 16:34:00 Test Item Value Reference Range Interpretation Comments UA pH (test code = UA pH) 5.5 5.0-8.0 [facility] AND [id number] 16:34:00 Test Item Value Reference Range Interpretation Comments UA Turbidity (test code Slight *ABN*(07/25/16 = UA Turbidity) 10:34 AM) [facility] AND [id number] 16:34:00 Test Item Value Reference Range Interpretation Comments UA Color (test code = Dark Yellow *NA*(07/25/16 UA Color) 10:34 AM) [facility] AND [id number] 16:34:00 Test Item Value Reference Range Interpretation Comments UA Gran Cast (test code = UA Gran Cast) 9 [facility] [id number] 16:34:00 Test Item Value Reference Range Interpretation Comments U Sodium (test code = U Sodium) 30 [facility] [id number] 16:34:00 Test Item Value Reference Range Interpretation Comments U Prot/Creat (test code = U Prot/Creat) 3.1 [facility] [id number] 16:34:00 Test Item Value Reference Range Interpretation Comments U Protein (test code = U Protein) 420.9 [facility] [id number] 16:34:00 Test Item Value Reference Range Interpretation Comments U Creatinine (test code = U 136.00 Creatinine) [facility] [id number] 08:55:00 Test Item Value Reference Range Interpretation Comments Magnesium Lvl (test code = Magnesium 2.0 1.8-2.4 Lvl) [facility] [id number] 08:55:00 Test Item Value Reference Range Interpretation Comments Phosphorus (test code = Phosphorus) 5.2 2.5-4.5 [facility] FallsSush.[facility] [id number] 17:29:00 Test Item Value Reference Range Interpretation Comments Troponin-I (test code 0.28 See_Comment [Auto mated message] The = Troponin-I) system which g enerated this result transmit rohit reference range : <=0.40. The reference r leo was not used to interpr et this result as reji l/abnormal. [facility]2017-02-03 17:29:00 Test Item Value Reference Range Interpretation Comments Total CK (test code = Total CK) 2616 12-191 [facility] 17:29:00 Test Item Value Reference Range Interpretation Comments Troponin-T (test code 0.144 See_Comment [Auto mated message] The = Troponin-T) system which g enerated this result transmit rohit reference range : <=0.100. The reference r leo was not used to interpr et this result as reji l/abnormal. [facility]2017-02-03 17:29:00 Test Item Value Reference Range Interpretation Comments CK MB Index (test 0.2 See_Comment [Automate d message] The code = CK MB Index) system w [facility] generated this result transmit rohit reference range : <=2.5. The reference range was not used to interpr et this result as reji l/abnormal. [facility]2017-02-03 17:29:00 Test Item Value Reference Range Interpretation Comments CK MB (test code = CK MB) 6.3 0.5-3.6 [facility]2017-02-03 11:20:00 Test Item Value Reference Range Interpretation Comments Troponin-I (test code 0.38 See_Comment [Auto mated message] The = Troponin-I) system which g enerated this result transmit rohit reference range : <=0.40. The reference r leo was not used to interpr et this result as reji l/abnormal. [facility]2017-02-03 11:20:00 Test Item Value Reference Range Interpretation Comments Troponin-T (test code 0.173 See_Comment [Auto mated message] The = Troponin-T) system which g enerated this result transmit rohit reference range : <=0.100. The reference r leo was not used to interpr et this result as reji l/abnormal. [facility]2017-02-03 11:20:00 Test Item Value Reference Range Interpretation Comments CK MB Index (test 0.2 See_Comment [Automate d message] The code = CK MB Index) system w [facility] generated this result transmit rohit reference range : <=2.5. The reference range was not used to interpr et this result as reji l/abnormal. [facility]2017-02-03 11:20:00 Test Item Value Reference Range Interpretation Comments CK MB (test code = CK MB) 5.6 0.5-3.6 [facility] [employer] [id number] 11:20:00 Test Item Value Reference Range Interpretation Comments Phosphorus (test code = Phosphorus) 5.5 2.5-4.5 [facility]2017-02-03 06:18:00 Test Item Value Reference Range Interpretation Comments BNP (test code = BNP) 701 [facility]2017-02-03 04:59:27 Test Item Value Reference Range Interpretation Comments Troponin-I (test code 0.57 See_Comment [Auto mated message] The = Troponin-I) system which g enerated this result transmit rohit reference range : <=0.40. The reference r leo was not used to interpr et this result as reji l/abnormal. [facility]2016-12-26 10:22:00 Test Item Value Reference Range Interpretation Comments BNP (test code = BNP) 526 [facility]2016-12-26 10:22:00 Test Item Value Reference Range Interpretation Comments Magnesium Lvl (test code = Magnesium 2.1 1.8-2.4 Lvl) [facility]2016-12-26 10:22:00 Test Item Value Reference Range Interpretation Comments Glucose Lvl (test code = Glucose Lvl) 117 70-99 [facility]2016-12-26 10:22:00 Test Item Value Reference Range Interpretation Comments BUN (test code = BUN) 41 7-22 [facility]2016-12-26 10:22:00 Test Item Value Reference Range Interpretation Comments Creatinine Lvl (test code = Creatinine 2.00 0.50-1.40 Lvl) [facility]2016-12-26 10:22:00 Test Item Value Reference Range Interpretation Comments Calcium Lvl (test code = Calcium Lvl) 9.0 8.5-10.5 [facility]2016-12-26 10:22:00 Test Item Value Reference Range Interpretation Comments Chloride Lvl (test code = Chloride Lvl) 102 95-109 [facility]2016-12-26 10:22:00 Test Item Value Reference Range Interpretation Comments CO2 (test code = CO2) 33 24-32 [facility]2016-12-26 10:22:00 Test Item Value Reference Range Interpretation Comments Sodium Lvl (test code = Sodium Lvl) 144 135-145 [facility]2016-12-26 10:22:00 Test Item Value Reference Range Interpretation Comments Potassium Lvl (test code = Potassium 4.0 3.5-5.1 Lvl) [facility]2016-12-26 10:22:00 Test Item Value Reference Range Interpretation Comments eGFR (test code = eGFR) 32 [facility]2016-12-26 10:22:00 Test Item Value Reference Range Interpretation Comments AGAP (test code = AGAP) 13.0 10.0-20.0 [facility]2016-12-26 10:22:00 Test Item Value Reference Range Interpretation Comments Phosphorus (test code = Phosphorus) 4.6 2.5-4.5 [facility] SystemZinznupGIECQZWXYF5618-69-96 10:22:00 Test Item Value Reference Range Interpretation Comments RBC (test code = RBC) 3.68 4.20-5.40 [facility] HospitalBaegudtYYGPKZTHVV4631-53-18 10:22:00 Test Item Value Reference Range Interpretation Comments Hgb (test code = Hgb) 9.9 12.0-16.0 [facility] HospitalXocxduaNEJKELVECD9386-39-03 10:22:00 Test Item Value Reference Range Interpretation Comments MCH (test code = MCH) 26.8 pg 27.0-31.0 [facility] HospitalUgnlynxUMANBJZHXT6288-49-77 10:22:00 Test Item Value Reference Range Interpretation Comments MCHC (test code = MCHC) 34.2 32.0-36.0 [facility] HospitalJtmpieeGNLFOQYULP2107-29-45 10:22:00 Test Item Value Reference Range Interpretation Comments MCV (test code = MCV) 78.3 80.0-98.0 [facility] HospitalMpoxzdlTZHPMYLLWI2291-84-37 10:22:00 Test Item Value Reference Range Interpretation Comments Hct (test code = Hct) 28.8 36.0-48.0 [facility] HospitalLmxkwcwYIPOLCYGCZ5993-61-49 10:22:00 Test Item Value Reference Range Interpretation Comments Platelet (test code = Platelet) 191 133-450 [facility] HospitalAlxmuweOQXZQDYVZT1889-48-57 10:22:00 Test Item Value Reference Range Interpretation Comments MPV (test code = MPV) 9.5 7.4-10.4 [facility] HospitalLdbptbvQPUWHKGPKL5557-98-82 10:22:00 Test Item Value Reference Range Interpretation Comments RDW (test code = RDW) 15.3 11.5-14.5 [facility] HospitalLjnqfokKKIIGCCMLO7540-16-69 10:22:00 Test Item Value Reference Range Interpretation Comments WBC (test code = WBC) 5.6 3.7-10.4 [facility] HospitalOaqkqaoDPHVBRBKKK9052-74-10 10:22:00 Test Item Value Reference Range Interpretation Comments Eosinophils # (test code 0.5 See_Comment [A utomated message] The = Eosinophils #) system whic h generated this result tra nsmitted reference range : <=0.5. The reference r leo was not used to int erpret this result as normal/abnormal . [facility] HospitalJruxzuiHBLYBQISJP1336-20-24 10:22:00 Test Item Value Reference Range Interpretation Comments Microcyte (test code = 1+ *ABN*(06/15/16 Microcyte) 4:22 AM) [facility] HospitalVwzcptrIKZLJVDTNO0476-37-18 10:22:00 Test Item Value Reference Range Interpretation Comments Basophils # (test code 0.1 See_Comment [Aut omated message] The = Basophils #) system which generated this result tra nsmitted reference range : <=0.2. The reference r leo was not used to int erpret this result as normal/abnormal . [facility] HospitalXqxwpqoYWFPBQIZCD3780-61-24 10:22:00 Test Item Value Reference Range Interpretation Comments Lymphocytes (test code = Lymphocytes) 33.5 20.0-40.0 [facility] HospitalHmgxvtwNFORMDKFRG8871-37-42 10:22:00 Test Item Value Reference Range Interpretation Comments Segs (test code = Segs) 47.6 45.0-75.0 [facility] HospitalMipquebEUMOEQXXGK9515-65-17 10:22:00 Test Item Value Reference Range Interpretation Comments Monocytes (test code = Monocytes) 8.4 2.0-12.0 [facility] HospitalCxqubniNASIHRNECL2013-89-60 10:22:00 Test Item Value Reference Range Interpretation Comments Eosinophils (test code = 9.4 See_Comment [A utomated message] The Eosinophils) system which ge nerated this result tra nsmitted reference range : <=4.0. The reference r leo was not used to int erpret this result as normal/abnormal . [facility] HospitalMlwvxtzZRBADIQSQO6128-33-79 10:22:00 Test Item Value Reference Range Interpretation Comments Segs-Bands # (test code = Segs-Bands #) 2.6 1.5-8.1 [facility] HospitalEkgayinCIUAHRIRNK0914-65-04 10:22:00 Test Item Value Reference Range Interpretation Comments Lymphocytes # (test code = Lymphocytes 1.9 1.0-5.5 #) [facility] HospitalXmousyeANPTCJLSIN7175-09-33 10:22:00 Test Item Value Reference Range Interpretation Comments Basophils (test code = 1.1 See_Comment [Aut omated message] The Basophils) system which ge nerated this result tra nsmitted reference range : <=1.0. The reference r leo was not used to int erpret this result as normal/abnormal . [facility] HospitalZtrllnyAZSHKLSSQV8195-30-55 10:22:00 Test Item Value Reference Range Interpretation Comments Monocytes # (test code 0.5 See_Comment [Aut omated message] The = Monocytes #) system which generated this result tra nsmitted reference range : <=0.8. The reference r leo was not used to int erpret this result as normal/abnormal . [facility]2016-12-25 11:03:00 Test Item Value Reference Range Interpretation Comments Phosphorus (test code = Phosphorus) 4.8 2.5-4.5 [facility]2016-12-25 11:03:00 Test Item Value Reference Range Interpretation Comments Magnesium Lvl (test code = Magnesium 2.0 1.8-2.4 Lvl) [facility]2016-12-25 11:03:00 Test Item Value Reference Range Interpretation Comments eGFR (test code = eGFR) 32 [facility]2016-12-25 11:03:00 Test Item Value Reference Range Interpretation Comments Chloride Lvl (test code = Chloride Lvl) 101 95-109 [facility]2016-12-25 11:03:00 Test Item Value Reference Range Interpretation Comments Potassium Lvl (test code = Potassium 4.4 3.5-5.1 Lvl) [facility]2016-12-25 11:03:00 Test Item Value Reference Range Interpretation Comments BUN (test code = BUN) 37 7-22 [facility]2016-12-25 11:03:00 Test Item Value Reference Range Interpretation Comments Glucose Lvl (test code = Glucose Lvl) 119 70-99 [facility]2016-12-25 11:03:00 Test Item Value Reference Range Interpretation Comments Creatinine Lvl (test code = Creatinine 2.00 0.50-1.40 Lvl) [facility]2016-12-25 11:03:00 Test Item Value Reference Range Interpretation Comments Sodium Lvl (test code = Sodium Lvl) 142 135-145 [facility]2016-12-25 11:03:00 Test Item Value Reference Range Interpretation Comments Calcium Lvl (test code = Calcium Lvl) 8.7 8.5-10.5 [facility]2016-12-25 11:03:00 Test Item Value Reference Range Interpretation Comments CO2 (test code = CO2) 32 24-32 [facility]2016-12-25 11:03:00 Test Item Value Reference Range Interpretation Comments AGAP (test code = AGAP) 13.4 10.0-20.0 [facility] HospitalEjhmbfgYMMZKVMMVU2485-76-94 11:03:00 Test Item Value Reference Range Interpretation Comments Eosinophils (test code = 10.3 See_Comment [A utomated message] The Eosinophils) system which ge nerated this result tra nsmitted reference range : <=4.0. The reference r leo was not used to int erpret this result as normal/abnormal . [facility] HospitalZesyzzvVRMZAVNMXY5080-12-64 11:03:00 Test Item Value Reference Range Interpretation Comments Basophils # (test code 0.1 See_Comment [Aut omated message] The = Basophils #) system which generated this result tra nsmitted reference range : <=0.2. The reference r leo was not used to int erpret this result as normal/abnormal . [facility] HospitalKaacaodBMSILCLNTV6180-86-00 11:03:00 Test Item Value Reference Range Interpretation Comments Eosinophils # (test code 0.5 See_Comment [A utomated message] The = Eosinophils #) system whic h generated this result tra nsmitted reference range : <=0.5. The reference r leo was not used to int erpret this result as normal/abnormal . [facility] HospitalCqkcfhqHLNCNWESEQ8453-77-34 11:03:00 Test Item Value Reference Range Interpretation Comments Monocytes # (test code 0.5 See_Comment [Aut omated message] The = Monocytes #) system which generated this result tra nsmitted reference range : <=0.8. The reference r leo was not used to int erpret this result as normal/abnormal . [facility] HospitalRvbrogxAUMNYKJBST8747-30-69 11:03:00 Test Item Value Reference Range Interpretation Comments Segs-Bands # (test code = Segs-Bands #) 2.1 1.5-8.1 [facility] HospitalPlhcribENQOOHIPMZ8640-30-64 11:03:00 Test Item Value Reference Range Interpretation Comments Basophils (test code = 1.2 See_Comment [Aut omated message] The Basophils) system which ge nerated this result tra nsmitted reference range : <=1.0. The reference r leo was not used to int erpret this result as normal/abnormal . [facility] HospitalKkwtgalVVZIDBPAUH4424-03-88 11:03:00 Test Item Value Reference Range Interpretation Comments Lymphocytes # (test code = Lymphocytes 1.9 1.0-5.5 #) [facility] HospitalXquteylGTGPRGZHBJ0795-30-66 11:03:00 Test Item Value Reference Range Interpretation Comments Segs (test code = Segs) 42.5 45.0-75.0 [facility] HospitalMcjnecbSOEUQTFNXV6474-13-34 11:03:00 Test Item Value Reference Range Interpretation Comments Lymphocytes (test code = Lymphocytes) 37.0 20.0-40.0 [facility] HospitalMrtwrigKRTCEXWBBW0547-23-59 11:03:00 Test Item Value Reference Range Interpretation Comments Monocytes (test code = Monocytes) 9.0 2.0-12.0 [facility] HospitalTwfhyjrQNOINNAYNH5142-65-04 11:03:00 Test Item Value Reference Range Interpretation Comments MPV (test code = MPV) 9.8 7.4-10.4 [facility] HospitalCgxeehlSBJNTIDGLQ1314-85-66 11:03:00 Test Item Value Reference Range Interpretation Comments WBC (test code = WBC) 5.0 3.7-10.4 [facility] HospitalZtokudjTEQVKIPXKG3842-00-53 11:03:00 Test Item Value Reference Range Interpretation Comments RBC (test code = RBC) 3.57 4.20-5.40 [facility] HospitalWddqgwsJLSNAQFKES3609-56-03 11:03:00 Test Item Value Reference Range Interpretation Comments Hgb (test code = Hgb) 9.4 12.0-16.0 [facility] HospitalLwivrafNFDGWYMEGJ2237-04-77 11:03:00 Test Item Value Reference Range Interpretation Comments Hct (test code = Hct) 28.5 36.0-48.0 [facility] HospitalNiuabgcKBJXAPGLLB9597-31-71 11:03:00 Test Item Value Reference Range Interpretation Comments Platelet (test code = Platelet) 183 133-450 [facility] HospitalProsfmzMDBAKAQPUK6348-88-39 11:03:00 Test Item Value Reference Range Interpretation Comments MCV (test code = MCV) 79.9 80.0-98.0 [facility] HospitalPsghwpaKHRNIZOGBQ2445-71-53 11:03:00 Test Item Value Reference Range Interpretation Comments MCH (test code = MCH) 26.3 pg 27.0-31.0 [facility] HospitalOhswnsqVDILJCCDUF1644-97-59 11:03:00 Test Item Value Reference Range Interpretation Comments MCHC (test code = MCHC) 33.0 32.0-36.0 [facility] HospitalRcvejeyPPDJZDMSCR5650-26-79 11:03:00 Test Item Value Reference Range Interpretation Comments RDW (test code = RDW) 15.9 11.5-14.5 [facility]2016-12-24 10:26:00 Test Item Value Reference Range Interpretation Comments U Prot/Creat (test code = U Prot/Creat) 6.9 [facility]2016-12-24 10:26:00 Test Item Value Reference Range Interpretation Comments U Creatinine (test code = U Creatinine) 19.30 [facility]2016-12-24 10:26:00 Test Item Value Reference Range Interpretation Comments U Protein (test code = U Protein) 133.1 [facility] HospitalJqmmvxaKVSRGWINZR7909-26-45 09:20:00 Test Item Value Reference Range Interpretation Comments MPV (test code = MPV) 9.7 7.4-10.4 [facility] HospitalNexbfmjDGNUWUOSRF7069-92-10 09:20:00 Test Item Value Reference Range Interpretation Comments Platelet (test code = Platelet) 184 133-450 [facility] HospitalFgaukjnUPOZHVYMWR3138-62-98 09:20:00 Test Item Value Reference Range Interpretation Comments RDW (test code = RDW) 15.9 11.5-14.5 [facility] HospitalBygdsvtCJKJPMFKJO1713-22-97 09:20:00 Test Item Value Reference Range Interpretation Comments MCV (test code = MCV) 79.3 80.0-98.0 [facility] HospitalCbiwiyiYSGZQMLYHB7053-68-32 09:20:00 Test Item Value Reference Range Interpretation Comments MCHC (test code = MCHC) 33.0 32.0-36.0 [facility] HospitalPuwvhrpYNUCXCQQOI3065-79-55 09:20:00 Test Item Value Reference Range Interpretation Comments MCH (test code = MCH) 26.2 pg 27.0-31.0 [facility] HospitalKlmdruuMGAVFJOAFR7050-59-33 09:20:00 Test Item Value Reference Range Interpretation Comments Hct (test code = Hct) 29.4 36.0-48.0 [facility] HospitalAywluecEHISYPLPIJ3796-22-69 09:20:00 Test Item Value Reference Range Interpretation Comments Hgb (test code = Hgb) 9.7 12.0-16.0 [facility] HospitalDyvzkllMKFLQVKIVK3577-99-12 09:20:00 Test Item Value Reference Range Interpretation Comments RBC (test code = RBC) 3.70 4.20-5.40 [facility] HospitalDvkpkidDEDZNOJMMW1007-84-42 09:20:00 Test Item Value Reference Range Interpretation Comments WBC (test code = WBC) 5.7 3.7-10.4 [facility] HospitalArntxmzZDBFUOFOQL8834-39-02 09:20:00 Test Item Value Reference Range Interpretation Comments Basophils # (test code 0.1 See_Comment [Aut omated message] The = Basophils #) system which generated this result tra nsmitted reference range : <=0.2. The reference r leo was not used to int erpret this result as normal/abnormal . [facility] HospitalPpbkewkFGNXWLZMDY2651-77-81 09:20:00 Test Item Value Reference Range Interpretation Comments Lymphocytes # (test code = Lymphocytes 2.2 1.0-5.5 #) [facility] HospitalDycxlpdYMIQJVUPGW5777-93-66 09:20:00 Test Item Value Reference Range Interpretation Comments Eosinophils # (test code 0.5 See_Comment [A utomated message] The = Eosinophils #) system whic h generated this result tra nsmitted reference range : <=0.5. The reference r leo was not used to int erpret this result as normal/abnormal . [facility] HospitalWnipprdEYGNOSXDRA5973-83-59 09:20:00 Test Item Value Reference Range Interpretation Comments Monocytes # (test code 0.5 See_Comment [Aut omated message] The = Monocytes #) system which generated this result tra nsmitted reference range : <=0.8. The reference r leo was not used to int erpret this result as normal/abnormal . [facility] HospitalOsfylakXBEBJBYRHD1863-39-01 09:20:00 Test Item Value Reference Range Interpretation Comments Basophils (test code = 1.1 See_Comment [Aut omated message] The Basophils) system which ge nerated this result tra nsmitted reference range : <=1.0. The reference r leo was not used to int erpret this result as normal/abnormal . [facility] HospitalFqtooavTZSQMLQEWR4117-40-59 09:20:00 Test Item Value Reference Range Interpretation Comments Segs-Bands # (test code = Segs-Bands #) 2.3 1.5-8.1 [place] 195916-12-24 09:20:00 Test Item Value Reference Range Interpretation Comments Eosinophils (test code = 9.5 See_Comment [A utomated message] The Eosinophils) system which ge nerated this result tra nsmitted reference range : <=4.0. The reference r leo was not used to int erpret this result as normal/abnormal . [facility] HospitalXhhdduvFJHKSHDIQM8438-53-56 09:20:00 Test Item Value Reference Range Interpretation Comments Monocytes (test code = Monocytes) 9.0 2.0-12.0 [facility] HospitalJyittzdNAZUGCNMUR1960-25-61 09:20:00 Test Item Value Reference Range Interpretation Comments Lymphocytes (test code = Lymphocytes) 38.9 20.0-40.0 [facility] HospitalIzlaejiOGNBHLDZCW5632-07-68 09:20:00 Test Item Value Reference Range Interpretation Comments Segs (test code = Segs) 41.5 45.0-75.0 [facility]2016-12-24 06:34:00 Test Item Value Reference Range Interpretation Comments Magnesium Lvl (test code = Magnesium 1.7 1.8-2.4 Lvl) [facility]2016-12-24 06:34:00 Test Item Value Reference Range Interpretation Comments Phosphorus (test code = Phosphorus) 4.2 2.5-4.5 [facility]bbeiskOVXVQJJLUMRW1946-39-44 06:34:00 Test Item Value Reference Range Interpretation Comments AGAP (test code = AGAP) 14.3 10.0-20.0 [facility] HospitalVijcwvnENBSLQTJRFXS7856-97-30 06:34:00 Test Item Value Reference Range Interpretation Comments eGFR (test code = eGFR) 41 [facility] HospitalPxrfrfzHEQWOUTOFDIF2982-95-87 06:34:00 Test Item Value Reference Range Interpretation Comments Chloride Lvl (test code = Chloride Lvl) 103 95-109 [facility] HospitalNfeiufoMXIDQHKQHMIL2586-93-64 06:34:00 Test Item Value Reference Range Interpretation Comments Calcium Lvl (test code = Calcium Lvl) 8.5 8.5-10.5 [facility] HospitalCilfmrzZEUQVVHCSHUM9972-90-40 06:34:00 Test Item Value Reference Range Interpretation Comments CO2 (test code = CO2) 32 24-32 [facility] HospitalJespputFWRYTXFFYBSP6945-29-74 06:34:00 Test Item Value Reference Range Interpretation Comments Glucose Lvl (test code = Glucose Lvl) 173 70-99 [facility]EpchidmFSPBZKJDEGEA0569-43-21 06:34:00 Test Item Value Reference Range Interpretation Comments BUN (test code = BUN) 37 7-22 [facility] HospitalYaxqqzgSRKUUJZQYICA3457-41-68 06:34:00 Test Item Value Reference Range Interpretation Comments Creatinine Lvl (test code = Creatinine 1.63 0.50-1.40 Lvl) [facility] HospitalEwfplkiKPOWMPXVNHMY6214-27-77 06:34:00 Test Item Value Reference Range Interpretation Comments Potassium Lvl (test code = Potassium 4.3 3.5-5.1 Lvl) [facility] HospitalTxxwstxJCSHTNLPLONZ2673-11-86 06:34:00 Test Item Value Reference Range Interpretation Comments Sodium Lvl (test code = Sodium Lvl) 145 135-145 [facility]2016-12-22 16:21:00 Test Item Value Reference Range Interpretation Comments Ammonia (test code = Ammonia) 48.0 [facility] FallsMlymlibSJYHAVUYQX3373-09-47 14:56:00 Test Item Value Reference Range Interpretation Comments IVETTE Interp (test code Pattern appears = IVETTE Interp) Nucleolar. [facility] FallsOakwltuQMEKRALVND1980-63-23 14:56:00 Test Item Value Reference Range Interpretation Comments IVETTE Titer (test code = 1:40 *ABN*(06/11/16 IVETTE Titer) 8:56 AM) [facility]VqpyhnrFFVXWJRSZD9945-34-78 14:56:00 Test Item Value Reference Range Interpretation Comments Hep Bs Ag (test code Negative *NA*(06/11/16 = Hep Bs Ag) 8:56 AM) [facility] FallsCfnimlsHRTYUPCWON7979-98-59 14:56:00 Test Item Value Reference Range Interpretation Comments Hep C Ab (test code = Negative *NA*(06/11/16 Hep C Ab) 8:56 AM) [facility] FallsEvzalgoDHHKFDLDFU3350-08-50 14:56:00 Test Item Value Reference Range Interpretation Comments Hep B Core IgM (test Negative *NA*(06/11/16 code = Hep B Core 8:56 AM) IgM) [facility]neyHcufizbIMZILBRFYJ6496-36-26 14:56:00 Test Item Value Reference Range Interpretation Comments Hep A IgM (test code Negative *NA*(06/11/16 = Hep A IgM) 8:56 AM) [facility] FallsJqbfmydMTURDHWAQB6558-55-51 14:56:00 Test Item Value Reference Range Interpretation Comments HIV Ag/Ab 4th Gen Negative *NA*(06/11/16 (test code = HIV 8:56 AM) Ag/Ab 4th Gen) [facility] FallsMqzwbylNDOFXMUNXX1789-84-58 14:56:00 Test Item Value Reference Range Interpretation Comments IVETTE (test code = IVETTE) Positive *ABN*(06/11/16 8:56 AM) [facility]2016-12-22 10:42:00 Test Item Value Reference Range Interpretation Comments Bili Total (test code = Bili Total) 0.1 0.2-1.3 [facility]2016-12-22 10:42:00 Test Item Value Reference Range Interpretation Comments Total Protein (test code = Total 5.2 6.4-8.4 Protein) [facility]2016-12-22 10:42:00 Test Item Value Reference Range Interpretation Comments Albumin Lvl (test code = Albumin Lvl) 1.6 3.5-5.0 [facility]2016-12-22 10:42:00 Test Item Value Reference Range Interpretation Comments B/C Ratio (test code = B/C Ratio) 20 6-25 [facility]2016-12-22 10:42:00 Test Item Value Reference Range Interpretation Comments Globulin (test code = Globulin) 3.6 2.7-4.2 [facility]2016-12-22 10:42:00 Test Item Value Reference Range Interpretation Comments A/G Ratio (test code = A/G Ratio) 0.4 0.7-1.6 [facility]2016-12-22 10:42:00 Test Item Value Reference Range Interpretation Comments Alk Phos (test code = Alk Phos) 74 39-136 [facility]2016-12-22 10:42:00 Test Item Value Reference Range Interpretation Comments ALT (test code = ALT) 14 See_Comment [Auto mated message] The system which ge nerated this result transmit rohit reference range : <=65. The reference range was not used to interpr et this result as reji l/abnormal. [facility]2016-12-22 10:42:00 Test Item Value Reference Range Interpretation Comments AST (test code = AST) 13 See_Comment [Auto mated message] The system which ge nerated this result transmit rohit reference range : <=37. The reference range was not used to interpr et this result as reji l/abnormal. [facility]KyqvblnNFWTAXTSMT8780-71-66 10:42:00 Test Item Value Reference Range Interpretation Comments INR (test code = INR) 1.06 0.85-1.17 [facility] SystemMoeuhphMFPMKSJAJQ7859-30-54 10:42:00 Test Item Value Reference Range Interpretation Comments PT (test code = PT) 14.0 s 12.0-14.7 [facility] SystemTycfcvkGVPBFGWHDZ0418-83-38 10:42:00 Test Item Value Reference Range Interpretation Comments PTT (test code = PTT) 36.4 s 22.9-35.8 [facility] FPRINNGYG6440-53-20 10:42:00 Test Item Value Reference Range Interpretation Comments Hgb A1C (test code = Hgb A1C) 10.5 [facility] FallsCARAC VRNJGEA8417-60-51 02:08:00 Test Item Value Reference Range Interpretation Comments CK MB Index (test 1.8 See_Comment [Automate d message] The code = CK MB Index) system w [facility] generated this result transmit rohit reference range : <=2.5. The reference range was not used to interpr et this result as reji l/abnormal. [facility] IKFPTPQ8551-59-32 02:08:00 Test Item Value Reference Range Interpretation Comments CK MB (test code = CK MB) 2.9 0.5-3.6 [facility] SYXMCFW5711-37-05 02:08:00 Test Item Value Reference Range Interpretation Comments Troponin-T (test code 0.061 See_Comment [Auto mated message] The = Troponin-T) system which g enerated this result transmit rohit reference range : <=0.100. The reference r leo was not used to interpr et this result as reji l/abnormal. [facility] UBZZJKS7432-85-75 02:08:00 Test Item Value Reference Range Interpretation Comments Total CK (test code = Total CK) 159 12-191 [facility] JHQJYZW0395-62-38 02:08:00 Test Item Value Reference Range Interpretation Comments Troponin-I (test code no gt See_Comment [Auto mated message] The = Troponin-I) system which g enerated this result transmit rohit reference range : <=0.40. The reference r leo was not used to interpr et this result as reji l/abnormal. [facility]2016-12-22 02:08:00 Test Item Value Reference Range Interpretation Comments Bili Total (test code = Bili Total) 0.2 0.2-1.3 [facility]2016-12-22 02:08:00 Test Item Value Reference Range Interpretation Comments Bili Direct (test code 0.1 See_Comment [Aut omated message] The = Bili Direct) system which generated this result tra nsmitted reference range : <=0.3. The reference r leo was not used to int erpret this result as reji l/abnormal. [facility]2016-12-22 02:08:00 Test Item Value Reference Range Interpretation Comments Bili Indirect (test 0.1 See_Comment [Automa rohit message] The code = Bili Indirect) system which generated this result tra nsmitted reference range : <=1.0. The reference r leo was not used to int erpret this result as normal/abnormal . [facility]2016-12-22 02:08:00 Test Item Value Reference Range Interpretation Comments Total Protein (test code = Total 5.7 6.4-8.4 Protein) [facility]2016-12-22 02:08:00 Test Item Value Reference Range Interpretation Comments A/G Ratio (test code = A/G Ratio) 0.5 0.7-1.6 [place] [id number] 02:08:00 Test Item Value Reference Range Interpretation Comments Albumin Lvl (test code = Albumin Lvl) 1.8 3.5-5.0 [facility]2016-12-22 02:08:00 Test Item Value Reference Range Interpretation Comments Globulin (test code = Globulin) 3.9 2.7-4.2 [place] 850326-12-22 02:08:00 Test Item Value Reference Range Interpretation Comments Alk Phos (test code = Alk Phos) 99 39-136 [facility] [place]2016-12-22 02:08:00 Test Item Value Reference Range Interpretation Comments AST (test code = AST) 21 See_Comment [Auto mated message] The system which ge nerated this result transmit rohit reference range : <=37. The reference range was not used to interpr et this result as reji l/abnormal. [facility] [id number] 02:08:00 Test Item Value Reference Range Interpretation Comments ALT (test code = ALT) 17 See_Comment [Auto mated message] The system which ge nerated this result transmit rohit reference range : <=65. The reference range was not used to interpr et this result as reji l/abnormal. [facility] [id number] 02:08:00 Test Item Value Reference Range Interpretation Comments UDS Note (test code = See Note *NA*(06/10/16 UDS Note) 8:08 PM) [facility] [id number] 02:08:00 Test Item Value Reference Range Interpretation Comments U Propoxyph Scr (test Negative *NA*(06/10/16 code = U Propoxyph Scr) 8:08 PM) [facility] [id number] 02:08:00 Test Item Value Reference Range Interpretation Comments U Opiate Scr (test Negative *NA*(06/10/16 code = U Opiate Scr) 8:08 PM) [facility] [id number] 02:08:00 Test Item Value Reference Range Interpretation Comments U Methadone Scr (test Negative *NA*(06/10/16 code = U Methadone Scr) 8:08 PM) [facility] [id number] 02:08:00 Test Item Value Reference Range Interpretation Comments U Phencyc Scr (test Negative *NA*(06/10/16 code = U Phencyc Scr) 8:08 PM) [facility] [id number] 02:08:00 Test Item Value Reference Range Interpretation Comments U Cannab Scr (test Negative *NA*(06/10/16 code = U Cannab Scr) 8:08 PM) [facility] [id number] 02:08:00 Test Item Value Reference Range Interpretation Comments U Amph Scr (test code Negative *NA*(06/10/16 = U Amph Scr) 8:08 PM) [facility] [id number] 02:08:00 Test Item Value Reference Range Interpretation Comments U Kelly Scr (test code Negative *NA*(06/10/16 = U Kelly Scr) 8:08 PM) [facility] [id number] 02:08:00 Test Item Value Reference Range Interpretation Comments U Benzodia Scr (test Negative *NA*(06/10/16 code = U Benzodia Scr) 8:08 PM) [facility] [id number] 02:08:00 Test Item Value Reference Range Interpretation Comments U Cocaine Scr (test Negative *NA*(06/10/16 code = U Cocaine Scr) 8:08 PM) [facility] [id number] 02:08:00 Test Item Value Reference Range Interpretation Comments LDL (Calculated) (test code = LDL 75 (Calculated)) [facility] FallsXordztkUAACOI8719-53-55 02:08:00 Test Item Value Reference Range Interpretation Comments VLDL (test code = VLDL) 27 [facility] McallenVxpoghcEOUOGJ9374-10-05 02:08:00 Test Item Value Reference Range Interpretation Comments Chol (test code = Chol) 133 [facility] FallsVcoxrtpPMGSNF3454-37-94 02:08:00 Test Item Value Reference Range Interpretation Comments Trig (test code = Trig) 133 [facility] QchryouNKATKG9417-57-93 02:08:00 Test Item Value Reference Range Interpretation Comments CHD Risk (test code = CHD Risk) 4.29 3.90-5.80 [facility] McallenNwlkiteBAEUPS4968-84-35 02:08:00 Test Item Value Reference Range Interpretation Comments HDL (test code = HDL) 31 [facility] AND [id number] 02:08:00 Test Item Value Reference Range Interpretation Comments UA Urobilinogen (test code = UA <=1.0 mg/dL 0.1-1.0 Urobilinogen) [facility] AND [id number] 02:08:00 Test Item Value Reference Range Interpretation Comments UA Ketones (test code = UA Negative mg/dL Ketones) [facility] AND [id number] 02:08:00 Test Item Value Reference Range Interpretation Comments UA Glucose (test code = UA Glucose) 300 mg/dL [facility] AND [id number] 02:08:00 Test Item Value Reference Range Interpretation Comments UA Protein (test code = UA >=300 mg/dL Protein) [facility] AND [id number] 02:08:00 Test Item Value Reference Range Interpretation Comments UA pH (test code = UA pH) 6.0 5.0-8.0 [facility] AND [id number] 02:08:00 Test Item Value Reference Range Interpretation Comments UA Nitrite (test code Negative (06/10/16 8:08 = UA Nitrite) PM) [facility] AND [id number] 02:08:00 Test Item Value Reference Range Interpretation Comments UA Blood (test code = Trace *ABN*(06/10/16 UA Blood) 8:08 PM) [facility] AND [id number] 02:08:00 Test Item Value Reference Range Interpretation Comments UA Bili (test code = Negative *NA*(06/10/16 UA Bili) 8:08 PM) [facility] AND [id number] 02:08:00 Test Item Value Reference Range Interpretation Comments UA Mucus (test code = UA Mucus) Few /LPF [facility] AND [id number] 02:08:00 Test Item Value Reference Range Interpretation Comments UA RBC (test code = 4 See_Comment [Automa rohit message] The UA RBC) system which ge nerated this result transmit rohit reference range : <=2. The reference range was not used to interpr et this result as reji l/abnormal. [facility] AND [id number] 02:08:00 Test Item Value Reference Range Interpretation Comments UA Sq Epi (test code = UA Sq Epi) Few /LPF [facility] AND [id number] 02:08:00 Test Item Value Reference Range Interpretation Comments UA WBC (test code = 5 See_Comment [Automa rohit message] The UA WBC) system which ge nerated this result transmit rohit reference range : <=5. The reference range was not used to interpr et this result as reji l/abnormal. [facility] AND [id number] 02:08:00 Test Item Value Reference Range Interpretation Comments UA Leuk Est (test code Small *ABN*(06/10/16 = UA Leuk Est) 8:08 PM) [facility] AND [id number] 02:08:00 Test Item Value Reference Range Interpretation Comments UA Hyal Cast (test 1 See_Comment [Automat ed message] The code = UA Hyal Cast) system which generated this result transmit rohit reference range : <=2. The reference range was not used to interpr et this result as reji l/abnormal. [facility] [id number] 02:08:00 Test Item Value Reference Range Interpretation Comments UA Spec Grav (test code = UA Spec Grav) 1.009 [facility] AND [id number] 02:08:00 Test Item Value Reference Range Interpretation Comments UA Color (test code = Yellow *NA*(06/10/16 UA Color) 8:08 PM) [facility] AND [id number] 02:08:00 Test Item Value Reference Range Interpretation Comments UA Turbidity (test code = Clear (06/10/16 8:08 UA Turbidity) PM) [facility] [id number] 02:08:00 Test Item Value Reference Range Interpretation Comments U Preg (test code = U Negative (06/10/16 8:08 Preg) PM) [facility]2016-12-22 02:08:00 Test Item Value Reference Range Interpretation Comments U Protein (test code = U Protein) 375.4 [facility] [id number] 02:08:00 Test Item Value Reference Range Interpretation Comments U Prot/Creat (test code = U Prot/Creat) 5.4 [facility] [id number] 02:08:00 Test Item Value Reference Range Interpretation Comments U Creatinine (test code = U Creatinine) 69.80 [facility] FallsCARDIAC [id number] 16:53:00 Test Item Value Reference Range Interpretation Comments BNP (test code = BNP) 1135 [facility]CARD[facility] [id number] 16:53:00 Test Item Value Reference Range Interpretation Comments Troponin-I (test code no gt See_Comment [Auto mated message] The = Troponin-I) system which g enerated this result transmit rohit reference range : <=0.40. The reference r leo was not used to interpr et this result as reji l/abnormal. [facility] McallenBliipsCHEM [id number] 13:02:00 Test Item Value Reference Range Interpretation Comments Lactic Acid WB (test code = Lactic Acid 0.9 0.5-2.2 WB) [facility] FallsRyvkrsjINKDXXTQZA8747-28-55 12:29:44 Test Item Value Reference Range Interpretation Comments Valproic Acid Lvl (test code = Valproic 10 50-100 Acid Lvl) [facility]KlhtvpaKVMDOWJTHIVWF7443-17-77 11:21:27 Test Item Value Reference Range Interpretation Comments hCG Tot (test code = hCG Tot) 1 [facility] [place]2015-01-06 11:21:00 Test Item Value Reference Range Interpretation Comments Albumin Lvl (test code = Albumin Lvl) 3.2 3.5-5.0 [facility] [place]2015-01-06 11:21:00 Test Item Value Reference Range Interpretation Comments Total Protein (test code = Total 6.6 6.4-8.4 Protein) [facility] [place]2015-01-06 11:21:00 Test Item Value Reference Range Interpretation Comments Bili Total (test code = Bili Total) 0.6 0.2-1.3 [facility] [place]2015-01-06 11:21:00 Test Item Value Reference Range Interpretation Comments Alk Phos (test code = Alk Phos) 59 39-136 [facility] [place]2015-01-06 11:21:00 Test Item Value Reference Range Interpretation Comments AST (test code = AST) 11 See_Comment [Auto mated message] The system which ge nerated this result transmit rohit reference range : <=37. The reference range was not used to interpr et this result as reji l/abnormal. [facility] [place]2015-01-06 11:21:00 Test Item Value Reference Range Interpretation Comments ALT (test code = ALT) 17 See_Comment [Auto mated message] The system which ge nerated this result transmit rohit reference range : <=65. The reference range was not used to interpr et this result as reji l/abnormal. [facility] [place]2015-01-06 11:21:00 Test Item Value Reference Range Interpretation Comments eGFR (test code = eGFR) 99 [facility] [place]2015-01-06 11:21:00 Test Item Value Reference Range Interpretation Comments Glucose Lvl (test code = Glucose Lvl) 314 70-99 [facility] [place]2015-01-06 11:21:00 Test Item Value Reference Range Interpretation Comments Potassium Lvl (test code = Potassium 3.4 3.5-5.1 Lvl) [place] 850325-01-06 11:21:00 Test Item Value Reference Range Interpretation Comments BUN (test code = BUN) 11 7-22 [facility] [place]2015-01-06 11:21:00 Test Item Value Reference Range Interpretation Comments Creatinine Lvl (test code = Creatinine 0.8 0.5-1.4 Lvl) [facility] [place]2015-01-06 11:21:00 Test Item Value Reference Range Interpretation Comments Sodium Lvl (test code = Sodium Lvl) 134 135-145 [facility] [place]2015-01-06 11:21:00 Test Item Value Reference Range Interpretation Comments Chloride Lvl (test code = Chloride Lvl) 94 95-109 [facility] [place]2015-01-06 11:21:00 Test Item Value Reference Range Interpretation Comments Calcium Lvl (test code = Calcium Lvl) 9.1 8.5-10.5 [facility] [place]2015-01-06 11:21:00 Test Item Value Reference Range Interpretation Comments CO2 (test code = CO2) 24 24-32 [facility] [place]2015-01-06 11:21:00 Test Item Value Reference Range Interpretation Comments A/G Ratio (test code = A/G Ratio) 0.9 0.7-1.6 [facility] [place]2015-01-06 11:21:00 Test Item Value Reference Range Interpretation Comments Globulin (test code = Globulin) 3.4 2.0-4.0 [facility] [place]2015-01-06 11:21:00 Test Item Value Reference Range Interpretation Comments B/C Ratio (test code = B/C Ratio) 14 6-25 [facility] [place]2015-01-06 11:21:00 Test Item Value Reference Range Interpretation Comments AGAP (test code = AGAP) 19.4 10.0-20.0 [facility] [place]2015-01-06 11:21:00 Test Item Value Reference Range Interpretation Comments Lipase Lvl (test code = Lipase Lvl) 81 73-393 [facility]VjgjqvmWUOMXZGICP5992-57-00 11:21:00 Test Item Value Reference Range Interpretation Comments Large Plt (test code = Large Plt) Slight [facility] HospitalLjmclseNDTEOSQFZQ5128-94-52 11:21:00 Test Item Value Reference Range Interpretation Comments Basophils # (test code 0.0 See_Comment [Aut omated message] The = Basophils #) system which generated this result tra nsmitted reference range : <=0.2. The reference r leo was not used to int erpret this result as normal/abnormal . [facility] HospitalCiwapchSKHHOMSJHK5298-89-40 11:21:00 Test Item Value Reference Range Interpretation Comments Anisocyte (test code = 1+ *ABN*(06/26/14 5:21 Anisocyte) AM) [facility] HospitalJynavnzCHRRGSYSBI3352-93-86 11:21:00 Test Item Value Reference Range Interpretation Comments Monocytes # (test code 0.6 See_Comment [Aut omated message] The = Monocytes #) system which generated this result tra nsmitted reference range : <=0.8. The reference r leo was not used to int erpret this result as normal/abnormal . [facility] HospitalCwaupxuFLAHKRPROI4252-45-29 11:21:00 Test Item Value Reference Range Interpretation Comments Eosinophils # (test code 0.1 See_Comment [A utomated message] The = Eosinophils #) system whic h generated this result tra nsmitted reference range : <=0.5. The reference r leo was not used to int erpret this result as normal/abnormal . [facility] HospitalXivdlrlGNGKXXBGAU6871-44-61 11:21:00 Test Item Value Reference Range Interpretation Comments Lymphocytes # (test code = Lymphocytes 2.5 1.0-5.5 #) [facility] HospitalEnvptanBGHHHGPUPY8547-43-20 11:21:00 Test Item Value Reference Range Interpretation Comments Segs (test code = Segs) 63.3 45.0-75.0 [facility] HospitalGwjldxgWUUVQQSEHX4753-00-78 11:21:00 Test Item Value Reference Range Interpretation Comments Segs-Bands # (test code = Segs-Bands #) 5.6 1.5-8.1 [facility] HospitalQdglujgLMYTUVOTMM2027-97-50 11:21:00 Test Item Value Reference Range Interpretation Comments Basophils (test code = 0.0 See_Comment [Aut omated message] The Basophils) system which ge nerated this result tra nsmitted reference range : <=1.0. The reference r leo was not used to int erpret this result as normal/abnormal . [facility] HospitalRivkyjeBKRNJHBVZY8421-34-75 11:21:00 Test Item Value Reference Range Interpretation Comments Eosinophils (test code = 0.9 See_Comment [A utomated message] The Eosinophils) system which ge nerated this result tra nsmitted reference range : <=4.0. The reference r leo was not used to int erpret this result as normal/abnormal . [facility] HospitalVxfdthgEZUHTIECDR8759-59-09 11:21:00 Test Item Value Reference Range Interpretation Comments Monocytes (test code = Monocytes) 7.0 2.0-12.0 [facility] HospitalBegkvpaJOBSFEZDQV7322-26-29 11:21:00 Test Item Value Reference Range Interpretation Comments Lymphocytes (test code = Lymphocytes) 28.8 20.0-40.0 [facility] HospitalIcwsuwhQNQDJXTMLN4481-39-35 11:21:00 Test Item Value Reference Range Interpretation Comments WBC (test code = WBC) 8.8 3.7-10.4 [facility] HospitalMpcvhzaLGRILSPFKW0184-07-59 11:21:00 Test Item Value Reference Range Interpretation Comments RBC (test code = RBC) 5.19 4.20-5.40 [facility] HospitalCoaeoevTEBBJNNIPJ0993-64-30 11:21:00 Test Item Value Reference Range Interpretation Comments Hgb (test code = Hgb) 14.4 12.0-16.0 [facility] HospitalRsbycmqPAZHNOKOBB0733-95-88 11:21:00 Test Item Value Reference Range Interpretation Comments Hct (test code = Hct) 43.1 36.0-48.0 [facility] HospitalBvhajnzVFGZJIPTZO8300-95-95 11:21:00 Test Item Value Reference Range Interpretation Comments MCV (test code = MCV) 83.1 80.0-98.0 [facility] HospitalHyktmbuPBCLOHICDP8401-56-49 11:21:00 Test Item Value Reference Range Interpretation Comments MCH (test code = MCH) 27.8 pg 27.0-31.0 [facility] HospitalZuwristONYYSDBLVZ4176-63-09 11:21:00 Test Item Value Reference Range Interpretation Comments RDW (test code = RDW) 13.1 11.5-14.5 [facility] HospitalOtatgdlFJALSNECFV6947-62-07 11:21:00 Test Item Value Reference Range Interpretation Comments MCHC (test code = MCHC) 33.5 32.0-36.0 [facility] HospitalZbasicsFRKBOGOJHZ6614-26-77 11:21:00 Test Item Value Reference Range Interpretation Comments Platelet (test code = Platelet) 201 133-450 [facility] HospitalYsbxsqiTXRADOLRNJ6908-19-84 11:21:00 Test Item Value Reference Range Interpretation Comments MPV (test code = MPV) 10.4 7.4-10.4 [facility] FallsQxbcwkzUCUEOYAQND3691-49-64 04:48:55 Test Item Value Reference Range Interpretation Comments UA River Yeast (test code = UA Occasional /HPF A River Yeast) [facility] FallsKhnyuagSBHYIYKRNY8506-77-66 04:48:55 Test Item Value Reference Range Interpretation Comments UA Mucus (test code = UA Mucus) Few /LPF N [facility] FallsHtbsgyfQOWPFNEZRO7536-28-35 04:48:55 Test Item Value Reference Range Interpretation Comments UA Sq Epi (test code = UA Sq Moderate /LPF A Epi) [facility] FallsBfinsdhRFQYDECZMH8195-26-40 04:48:55 Test Item Value Reference Range Interpretation Comments Micro? (test code = Performed (04/14/2013 N Micro?) 23:48:55) [facility] FallsQriltfaMVSVCZIUKA3711-56-48 04:48:55 Test Item Value Reference Range Interpretation Comments UA WBC (test code = UA WBC) 0-2 /HPF N [facility] FallsPvkcxxfYJJVQJZQXW8395-13-51 04:48:55 Test Item Value Reference Range Interpretation Comments UA Bacteria (test code = UA Occasional /HPF N Bacteria) [facility] FallsRvjksbzEURPWGWYFR0673-64-25 04:48:55 Test Item Value Reference Range Interpretation Comments UA Glucose (test code = UA Glucose) 500 mg/dL A [facility] FallsDaezfytPMHZRSNHFD4210-52-79 04:48:55 Test Item Value Reference Range Interpretation Comments UA Bili (test code = Negative *NA*(04/14/2013 UA Bili) 23:48:55) [facility] FallsBhzzsijNMCGVJFZNB2645-23-43 04:48:55 Test Item Value Reference Range Interpretation Comments UA Ketones (test code = Trace A UA Ketones) *ABN*(04/14/2013 23:48:55) [facility] FallsKqlphwdJKUTKHGVTL2971-54-21 04:48:55 Test Item Value Reference Range Interpretation Comments UA Blood (test code = Negative (04/14/2013 N UA Blood) 23:48:55) [facility] FallsMbxwzyuSVPECRONBY4846-65-26 04:48:55 Test Item Value Reference Range Interpretation Comments UA Urobilinogen (test code = UA 0.2 0.1-1.0 N Urobilinogen) [facility] FallsYulfkklHQVRFKEPAD3455-62-44 04:48:55 Test Item Value Reference Range Interpretation Comments UA Nitrite (test code Negative (04/14/2013 N = UA Nitrite) 23:48:55) [facility] FallsJzukrxbOOWEVFRAME6650-37-65 04:48:55 Test Item Value Reference Range Interpretation Comments UA Leuk Est (test Negative (04/14/2013 N code = UA Leuk Est) 23:48:55) [facility] FallsQjymdgdWUXBQWZZRW7449-81-81 04:48:55 Test Item Value Reference Range Interpretation Comments UA Turbidity (test code = Clear (04/14/2013 N UA Turbidity) 23:48:55) [facility] FallsRmyotsuUHWDEVWLMR7034-02-59 04:48:55 Test Item Value Reference Range Interpretation Comments UA Color (test code = Yellow *NA*(04/14/2013 UA Color) 23:48:55) [facility] FallsHzmcrflUAJTAEYIUV1076-80-98 04:48:55 Test Item Value Reference Range Interpretation Comments UA pH (test code = UA pH) 7.0 1 5.0-8.0 N [facility] FallsPjegbmqKWZIBUQINF3084-34-41 04:48:55 Test Item Value Reference Range Interpretation Comments UA Spec Grav (test code = UA Spec 1.025 1 N Grav) [facility] FallsDsthkdtIXJHQWCWHP2452-03-52 04:48:55 Test Item Value Reference Range Interpretation Comments UA Protein (test code = Trace A UA Protein) *ABN*(04/14/2013 23:48:55) [facility]JloyyhnEYQVRCVEK3353-38-42 04:28:00 Test Item Value Reference Range Interpretation Comments S Preg (test code = S Negative *NA*(04/14/2013 Preg) 23:28:00) [facility] HospitalPcefnarEUIGMXEJB3041-05-54 04:28:00 Test Item Value Reference Range Interpretation Comments Lipase Lvl (test code = Lipase Lvl) 233 73-393 N [facility] HospitalJujkclyFFNRAKKDE4982-17-64 04:28:00 Test Item Value Reference Range Interpretation Comments Globulin (test code = Globulin) 4.1 2.0-4.0 H [facility] HospitalPtwkfbaUXQFMMJJU7745-23-64 04:28:00 Test Item Value Reference Range Interpretation Comments AGAP (test code = AGAP) 10.5 10.0-20.0 N [facility] HospitalNobsrqkQQEAJWMQE2375-66-85 04:28:00 Test Item Value Reference Range Interpretation Comments B/C Ratio (test code = B/C Ratio) 6 6-25 N [facility] HospitalXeryziwXUEDAVQML5462-05-67 04:28:00 Test Item Value Reference Range Interpretation Comments A/G Ratio (test code = A/G Ratio) 0.7 0.7-1.6 N [facility] HospitalEpktedxNAPQQWIBZ2608-96-60 04:28:00 Test Item Value Reference Range Interpretation Comments eGFR (test code = eGFR) 130 [facility] HospitalCflcaluCADWLJMFL9602-21-59 04:28:00 Test Item Value Reference Range Interpretation Comments Albumin Lvl (test code = Albumin Lvl) 2.9 3.5-5.0 L [facility] HospitalMqmczrwXHBCRKWNO6638-66-01 04:28:00 Test Item Value Reference Range Interpretation Comments ASPARTATE TRANSAMINASE 20 See_Comment N [Aut omated message] (test code = ASPARTATE The s ystem which TRANSAMINASE) generated this result transmitted ref erence range: <=37. Th e reference range was not used to interpr et this result as normal/abnormal . [facility] HospitalVhookwuMSVHERIEV1212-46-89 04:28:00 Test Item Value Reference Range Interpretation Comments Bili Total (test code = Bili Total) 0.5 0.2-1.3 N [facility] HospitalKppdotrCRCUOQFKX5692-68-84 04:28:00 Test Item Value Reference Range Interpretation Comments Alk Phos (test code = Alk Phos) 89 39-136 N [facility] HospitalSbdgrosNEAFDVFMP1557-35-07 04:28:00 Test Item Value Reference Range Interpretation Comments ALANINE AMINOTRANSFERASE 11 See_Comment N [A utomated message] (test code = ALANINE The sys tem which AMINOTRANSFERASE) generated this result transmitted ref erence range: <=65. Th e reference range was not used to int erpret this result as normal/abnormal . [facility] HospitalZfclaczZISPWKSPH1114-00-51 04:28:00 Test Item Value Reference Range Interpretation Comments Creatinine Lvl (test code = Creatinine 0.5 0.5-1.4 N Lvl) [facility] HospitalDtnhoqlEZPOCROFP3244-60-20 04:28:00 Test Item Value Reference Range Interpretation Comments BUN (test code = BUN) 3 7-22 L [facility] HospitalFpannieKYQOKHQZB3591-38-54 04:28:00 Test Item Value Reference Range Interpretation Comments Glucose Lvl (test code = Glucose Lvl) 255 70-99 H [facility] HospitalBxfiewyVPBCWDQCP7752-52-44 04:28:00 Test Item Value Reference Range Interpretation Comments Total Protein (test code = Total 7.0 6.4-8.4 N Protein) [facility] HospitalMzewifbFNXOVUCTJ2146-46-80 04:28:00 Test Item Value Reference Range Interpretation Comments Calcium Lvl (test code = Calcium Lvl) 8.7 8.5-10.5 N [facility] HospitalLukhwmzCZIPYUTRL3844-48-52 04:28:00 Test Item Value Reference Range Interpretation Comments CO2 (test code = CO2) 29 24-32 N [facility] HospitalQjkcoypYDDSXGHCH9002-05-98 04:28:00 Test Item Value Reference Range Interpretation Comments Chloride Lvl (test code = Chloride Lvl) 104 95-109 N [facility] HospitalYghocvcLUQBODKPQ5194-80-45 04:28:00 Test Item Value Reference Range Interpretation Comments Potassium Lvl (test code = Potassium 3.5 3.5-5.1 N Lvl) [facility] HospitalPfpxlrkVQRWSBZJS1239-37-28 04:28:00 Test Item Value Reference Range Interpretation Comments Sodium Lvl (test code = Sodium Lvl) 140 135-145 N [facility]NdjntfhKMJVRAVRRU9116-06-96 04:28:00 Test Item Value Reference Range Interpretation Comments PROTIME (test code = PROTIME) 12.1 s 12.0-14.7 N [facility] HospitalHshhrmbYUWQVLAPJR5284-17-75 04:28:00 Test Item Value Reference Range Interpretation Comments aPTT (test code = aPTT) 39.0 s 22.9-35.8 H [facility] HospitalZrlpoafFRNZQZUCBO3972-47-94 04:28:00 Test Item Value Reference Range Interpretation Comments INR (test code = INR) 0.90 0.85-1.17 N [facility] HospitalAcsjkdlFCBYZZOQBD9580-03-32 04:28:00 Test Item Value Reference Range Interpretation Comments MCH (test code = MCH) 29.4 pg 27.0-31.0 N [facility] HospitalXogsxalNZCHGQGCFV2934-21-35 04:28:00 Test Item Value Reference Range Interpretation Comments MCV (test code = MCV) 86.1 81.0-99.0 N [facility] HospitalYiupoakGYLEAQQGQB2979-96-90 04:28:00 Test Item Value Reference Range Interpretation Comments Hct (test code = Hct) 29.4 36.0-48.0 L [facility] HospitalFpohjvlRMGVEXOMFQ9438-82-95 04:28:00 Test Item Value Reference Range Interpretation Comments RDW (test code = RDW) 14.0 11.5-14.5 N [facility] HospitalWivtdmlBHLLKIPHBU4286-13-40 04:28:00 Test Item Value Reference Range Interpretation Comments WBC X 10x3 (test code = WBC X 10x3) 6.2 3.7-10.4 N [facility] HospitalJptzxijVCZSAFJDUC1971-39-30 04:28:00 Test Item Value Reference Range Interpretation Comments Platelet (test code = Platelet) 178 133-450 N [facility] HospitalZposdjaGPKUUTBVET4287-17-57 04:28:00 Test Item Value Reference Range Interpretation Comments MCHC (test code = MCHC) 34.1 32.0-36.0 N [facility] HospitalLhhcodsALKGYSHRXI8812-17-26 04:28:00 Test Item Value Reference Range Interpretation Comments RBC X 10x6 (test code = RBC X 10x6) 3.41 4.20-5.40 L [facility] HospitalHoangboTCEIKNRRYC6670-16-35 04:28:00 Test Item Value Reference Range Interpretation Comments Hgb (test code = Hgb) 10.0 12.0-16.0 L [facility] HospitalXdbgesqEANMUYPSQO6140-42-96 04:28:00 Test Item Value Reference Range Interpretation Comments MPV (test code = MPV) 10.1 7.4-10.4 N [facility] HospitalVwdfpvkJGNXDQHGCB6662-84-57 04:28:00 Test Item Value Reference Range Interpretation Comments Segs-Bands # (test code = Segs-Bands #) 4.4 1.5-8.1 N [facility] HospitalBqhelucJAXCGOAZYX5757-00-02 04:28:00 Test Item Value Reference Range Interpretation Comments Basophils (test code = 0.7 See_Comment N [Aut omated message] The Basophils) system which ge nerated this result tra nsmitted reference range : <=1.0. The reference r leo was not used to int erpret this result as normal/abnormal . [facility] HospitalGtadyxwNKUINTXOXE9862-38-90 04:28:00 Test Item Value Reference Range Interpretation Comments Segs (test code = Segs) 70.7 45.0-75.0 N [facility] HospitalEbzpihlMGRCPWMXFO0548-40-81 04:28:00 Test Item Value Reference Range Interpretation Comments Monocytes # (test code 0.3 See_Comment N [Aut omated message] The = Monocytes #) system which generated this result tra nsmitted reference range : <=0.8. The reference r leo was not used to int erpret this result as normal/abnormal . [facility] HospitalBazdnidZERWNTIQRL3653-79-57 04:28:00 Test Item Value Reference Range Interpretation Comments Lymphocytes # (test code = Lymphocytes 1.2 1.0-5.5 N #) [facility] HospitalQstabgaFNOEGYMPHW7496-81-76 04:28:00 Test Item Value Reference Range Interpretation Comments Monocytes (test code = Monocytes) 4.5 2.0-12.0 N [facility] HospitalFvgwqvcVJUTLSKJUY0154-37-43 04:28:00 Test Item Value Reference Range Interpretation Comments Eosinophils (test code = 4.1 See_Comment H [A utomated message] The Eosinophils) system which ge nerated this result tra nsmitted reference range : <=4.0. The reference r leo was not used to int erpret this result as normal/abnormal . [facility] HospitalHvmnyliBVJDVWPAMS6836-05-73 04:28:00 Test Item Value Reference Range Interpretation Comments Lymphocytes (test code = Lymphocytes) 20.0 20.0-40.0 N [facility] HospitalZaxpwkvLVLMZZAIDH3049-35-29 04:28:00 Test Item Value Reference Range Interpretation Comments Basophils # (test code 0.0 See_Comment N [Aut omated message] The = Basophils #) system which generated this result tra nsmitted reference range : <=0.2. The reference r leo was not used to int erpret this result as normal/abnormal . [facility] HospitalMzoubaiBFINEMBRHM0325-82-37 04:28:00 Test Item Value Reference Range Interpretation Comments Eosinophils # (test code 0.3 See_Comment N [A utomated message] The = Eosinophils #) system whic h generated this result tra nsmitted reference range : <=0.5. The reference r leo was not used to int erpret this result as normal/abnormal . [facility] GLUCOSE YMQQLVC5370-50-74 01:12:00 Test Item Value Reference Range Interpretation Comments Gluc POC Lifscn (test code = Gluc POC 260 70-99 H Lifscn) [facility] GLUCOSE HXISPDS2443-15-11 01:12:00 Test Item Value Reference Range Interpretation Comments Comment1 (test code = Comment1) Ravi RN/MD [facility] FallsTofpgyeMECVYPRPEE7776-34-85 23:40:00 Test Item Value Reference Range Interpretation Comments UA Protein (test code = Trace A UA Protein) *ABN*(03/14/2012 18:40:00) [facility]VxutmqsBUUQNRMWXZ5149-09-49 23:40:00 Test Item Value Reference Range Interpretation Comments UA pH (test code = UA pH) 6.0 1 5.0-8.0 N [facility] WorthLvgbsopKBZEDKSAFK1819-44-13 23:40:00 Test Item Value Reference Range Interpretation Comments UA Ketones (test code = >=80 mg/dL UA Ketones) *NA*(03/14/2012 18:40:00) [facility] WorthGfapboyVOBLGDAVHQ1091-21-17 23:40:00 Test Item Value Reference Range Interpretation Comments UA Glucose (test code = >=1000 mg/dL A UA Glucose) *ABN*(03/14/2012 18:40:00) [facility] WorthFbvvjdfUEIQWRAVQP6514-48-57 23:40:00 Test Item Value Reference Range Interpretation Comments UA Blood (test code = Negative (03/14/2012 N UA Blood) 18:40:00) [facility] FallsNzwjtltZQHDKANNDW5576-10-33 23:40:00 Test Item Value Reference Range Interpretation Comments UA Nitrite (test code Negative (03/14/2012 N = UA Nitrite) 18:40:00) [facility] FallsYlrhovzPDEITSPAII2081-10-71 23:40:00 Test Item Value Reference Range Interpretation Comments UA Urobilinogen (test code = UA 0.2 0.1-1.0 N Urobilinogen) [facility] FallsEuyqbdtVVTFRNQNZJ8669-47-36 23:40:00 Test Item Value Reference Range Interpretation Comments UA Leuk Est (test Negative (03/14/2012 N code = UA Leuk Est) 18:40:00) [facility] FallsXffcifhLPTSQSZRDE9051-36-08 23:40:00 Test Item Value Reference Range Interpretation Comments UA Bili (test code = Negative *NA*(03/14/2012 UA Bili) 18:40:00) [facility] WorthErreyvnKTQDGZOPQM0593-20-90 23:40:00 Test Item Value Reference Range Interpretation Comments UA Turbidity (test code = Clear (03/14/2012 N UA Turbidity) 18:40:00) [facility] FallsRoimfqcKNZBRPLCVE1227-43-22 23:40:00 Test Item Value Reference Range Interpretation Comments UA Color (test code = Yellow *NA*(03/14/2012 UA Color) 18:40:00) [facility] FallsIhwkcqkCYTOZBNSMQ4656-86-40 23:40:00 Test Item Value Reference Range Interpretation Comments UA Spec Grav (test >=1.030 A code = UA Spec Grav) *ABN*(03/14/2012 18:40:00) [facility] FallsThjjrplDBLZDVNOPL0394-07-16 23:40:00 Test Item Value Reference Range Interpretation Comments UA Sq Epi (test code Occasional /LPF N = UA Sq Epi) (03/14/2012 18:40:00) [facility] FallsQpnbzvpZRDPWEWXTL6412-24-01 23:40:00 Test Item Value Reference Range Interpretation Comments UA WBC (test code = UA 3-5 /HPF (03/14/2012 N WBC) 18:40:00) [facility] FallsGygcdriZEHXMVHJDL2754-00-52 23:40:00 Test Item Value Reference Range Interpretation Comments UA Bacteria (test code Occasional /HPF N = UA Bacteria) (03/14/2012 18:40:00) [facility] HospitalXvnohnnEQRMDBBUN3917-73-86 22:50:00 Test Item Value Reference Range Interpretation Comments S Preg (test code = S Negative *NA*(03/14/2012 Preg) 17:50:00) [facility] HospitalYlqmzbzCJXAGYRRN1290-22-71 22:50:00 Test Item Value Reference Range Interpretation Comments Lipase Lvl (test code = Lipase Lvl) 45 73-393 L [facility] HospitalYlpdhhnVDMEYWNKR5484-83-56 22:50:00 Test Item Value Reference Range Interpretation Comments A/G Ratio (test code = A/G Ratio) 1.2 0.7-1.6 N [facility] HospitalFveskltZPWLLVTFP0822-09-71 22:50:00 Test Item Value Reference Range Interpretation Comments Globulin (test code = Globulin) 3.8 2.0-4.0 N [facility] HospitalBykkrnnRAEOWKREF1058-48-06 22:50:00 Test Item Value Reference Range Interpretation Comments B/C Ratio (test code = B/C Ratio) 21 6-25 N [facility] HospitalZiuopsjZGPTFQGTI5386-04-33 22:50:00 Test Item Value Reference Range Interpretation Comments AGAP (test code = AGAP) 16.8 10.0-20.0 N [facility] HospitalYugarinUUKYLCIJC4242-91-20 22:50:00 Test Item Value Reference Range Interpretation Comments Bili Total (test code = Bili Total) 1.1 0.2-1.3 N [facility] HospitalOyejuwqCPFDHWFSR5267-67-69 22:50:00 Test Item Value Reference Range Interpretation Comments Total Protein (test code = Total 8.2 6.4-8.4 N Protein) [facility] HospitalEhkfcisUJKPKDOEQ6205-77-97 22:50:00 Test Item Value Reference Range Interpretation Comments Potassium Lvl (test code = Potassium 3.8 3.5-5.1 N Lvl) [facility] HospitalYealeoaOIRACYUGS3325-82-97 22:50:00 Test Item Value Reference Range Interpretation Comments Creatinine Lvl (test code = Creatinine 0.7 0.5-1.4 N Lvl) [facility] HospitalYxllbctJWKZUSIEF8232-05-18 22:50:00 Test Item Value Reference Range Interpretation Comments Sodium Lvl (test code = Sodium Lvl) 139 135-145 N [facility] HospitalIiwlucnYWNBTWJLO9733-44-01 22:50:00 Test Item Value Reference Range Interpretation Comments Chloride Lvl (test code = Chloride Lvl) 99 95-109 N [facility] HospitalJpfntmnBXBQWKCOD3112-03-25 22:50:00 Test Item Value Reference Range Interpretation Comments CO2 (test code = CO2) 27 24-32 N [facility] HospitalObsapxsGFPMSUNGZ0651-81-06 22:50:00 Test Item Value Reference Range Interpretation Comments Glucose Lvl (test code = Glucose Lvl) 301 70-99 H [facility] HospitalSuuqxuiCOVNTWBPB8803-15-95 22:50:00 Test Item Value Reference Range Interpretation Comments BUN (test code = BUN) 15 7-22 N [facility] HospitalQjerckiOJSUOIGEB6513-18-41 22:50:00 Test Item Value Reference Range Interpretation Comments ALT (test code = ALT) 24 See_Comment N [Auto mated message] The system which ge nerated this result transmit rohit reference range : <=65. The reference range was not used to interpr et this result as reji l/abnormal. [facility] HospitalJbtetjrIXZLXABFS7390-94-99 22:50:00 Test Item Value Reference Range Interpretation Comments AST (test code = AST) 20 See_Comment N [Auto mated message] The system which ge nerated this result transmit rohit reference range : <=37. The reference range was not used to interpr et this result as reji l/abnormal. [facility] HospitalRdxzakdFSURUGICN7045-56-14 22:50:00 Test Item Value Reference Range Interpretation Comments Alk Phos (test code = Alk Phos) 67 39-136 N [facility] HospitalPfqaosmYTTLCVUYW1851-60-95 22:50:00 Test Item Value Reference Range Interpretation Comments Albumin Lvl (test code = Albumin Lvl) 4.4 3.5-5.0 N [facility] HospitalGxqbddfWFTIJSZIA4701-56-59 22:50:00 Test Item Value Reference Range Interpretation Comments Calcium Lvl (test code = Calcium Lvl) 9.9 8.5-10.5 N [facility] HospitalVebjoucUGZROQVNXV2428-99-37 22:50:00 Test Item Value Reference Range Interpretation Comments MPV (test code = MPV) 11.8 7.4-10.4 H [facility] HospitalKyrkefkAYHYFFFYWZ9185-49-09 22:50:00 Test Item Value Reference Range Interpretation Comments MCHC (test code = MCHC) 35.9 32.0-36.0 N [facility] HospitalZalugxlTVERVQKNVM8386-01-63 22:50:00 Test Item Value Reference Range Interpretation Comments MCH (test code = MCH) 31.2 pg 27.0-31.0 H [facility] HospitalOtclgwtFYUUGOZNOZ8125-60-67 22:50:00 Test Item Value Reference Range Interpretation Comments Platelet (test code = Platelet) 189 133-450 N [facility] HospitalJgwgenrEICCXOXKSE6215-98-03 22:50:00 Test Item Value Reference Range Interpretation Comments RDW (test code = RDW) 13.1 11.5-14.5 N [facility] HospitalYgqqnjkQKENXQZARR5646-53-81 22:50:00 Test Item Value Reference Range Interpretation Comments Hct (test code = Hct) 40.7 36.0-48.0 N [facility] HospitalDdbrslpUQKITPFWSG1005-30-94 22:50:00 Test Item Value Reference Range Interpretation Comments Hgb (test code = Hgb) 14.6 12.0-16.0 N [facility] HospitalOzzfiaxMWQMLTKWFA7415-70-26 22:50:00 Test Item Value Reference Range Interpretation Comments MCV (test code = MCV) 87.0 81.0-99.0 N [facility] HospitalZxgquntAHFJQFTYBM8895-83-33 22:50:00 Test Item Value Reference Range Interpretation Comments WBC (test code = WBC) 11.7 3.7-10.4 H [facility] HospitalIjwiwczLPYIUSSIOX0952-81-87 22:50:00 Test Item Value Reference Range Interpretation Comments RBC (test code = RBC) 4.68 4.20-5.40 N [facility] HospitalDytwnryCDGOGUOEQC4531-98-96 22:50:00 Test Item Value Reference Range Interpretation Comments Basophils # (test code 0.0 See_Comment N [Aut omated message] The = Basophils #) system which generated this result tra nsmitted reference range : <=0.2. The reference r leo was not used to int erpret this result as normal/abnormal . [facility] HospitalSlbwsdjLTSMQVKJZT0956-20-11 22:50:00 Test Item Value Reference Range Interpretation Comments Basophils (test code = 0.2 See_Comment N [Aut omated message] The Basophils) system which ge nerated this result tra nsmitted reference range : <=1.0. The reference r leo was not used to int erpret this result as normal/abnormal . [facility] HospitalBhximzaFSKLPXWIFV8449-77-78 22:50:00 Test Item Value Reference Range Interpretation Comments Eosinophils # (test code 0.0 See_Comment N [A utomated message] The = Eosinophils #) system [facility] h generated this result tra nsmitted reference range : <=0.5. The reference r leo was not used to int erpret this result as normal/abnormal . [facility] HospitalYhrkavzXQPYUBQUNV0345-25-05 22:50:00 Test Item Value Reference Range Interpretation Comments Monocytes # (test code 0.4 See_Comment N [Aut omated message] The = Monocytes #) system which generated this result tra nsmitted reference range : <=0.8. The reference r leo was not used to int erpret this result as normal/abnormal . [facility] HospitalBdmolzvGBMTGTKRJP2191-84-77 22:50:00 Test Item Value Reference Range Interpretation Comments Segs-Bands # (test code = Segs-Bands #) 10.6 1.5-8.1 H [facility] HospitalKisfspyRISZXGRZGK2024-28-77 22:50:00 Test Item Value Reference Range Interpretation Comments Lymphocytes # (test code = Lymphocytes 0.7 1.0-5.5 L #) [facility] HospitalXdgjwjrEJFUSOMDZB8898-61-36 22:50:00 Test Item Value Reference Range Interpretation Comments Monocytes (test code = Monocytes) 3.4 2.0-12.0 N [facility] HospitalGgiiozrGIICHNFGQB4275-84-47 22:50:00 Test Item Value Reference Range Interpretation Comments Plt Morph (test code = Normal (03/14/2012 N Plt Morph) 17:50:00) [facility] HospitalUastneaGEIFFIXDPA2227-48-15 22:50:00 Test Item Value Reference Range Interpretation Comments Lymphocytes (test code = Lymphocytes) 6.0 20.0-40.0 L [facility] HospitalVcuzihhOZPEDSROFC7136-31-96 22:50:00 Test Item Value Reference Range Interpretation Comments Eosinophils (test code = 0.0 See_Comment N [A utomated message] The Eosinophils) system which ge nerated this result tra nsmitted reference range : <=4.0. The reference r leo was not used to int erpret this result as normal/abnormal . [facility] HospitalLjyjzssLWKZMYKWWH6038-88-88 22:50:00 Test Item Value Reference Range Interpretation Comments Segs (test code = Segs) 90.4 45.0-75.0 H [facility] HospitalNtvnfxiHAFOQJXXLC6175-80-64 22:50:00 Test Item Value Reference Range Interpretation Comments RBC Morph (test code = Normal (03/14/2012 N RBC Morph) 17:50:00) [facility] GLUCOSE OOFAXDT6014-25-75 23:43:00 Test Item Value Reference Range Interpretation Comments Gluc POC Lifscn (test code = Gluc POC 167 70-99 H Lifscn) [facility] GLUCOSE FXFKXNT9828-61-24 23:43:00 Test Item Value Reference Range Interpretation Comments Comment1 (test code = Comment1) Notify RN/ [facility] GLUCOSE XRKUCHN7854-80-60 23:43:00 Test Item Value Reference Range Interpretation Comments Comment2 (test code = Comment2) Sliding Scale [facility] GLUCOSE FIXPBXK7769-60-01 17:40:00 Test Item Value Reference Range Interpretation Comments Gluc POC Lifscn (test code = Gluc POC 189 70-99 H Lifscn) [facility] GLUCOSE NWPGFLF9367-54-12 17:40:00 Test Item Value Reference Range Interpretation Comments Comment1 (test code = Comment1) Notify TABATHA/ [facility] GLUCOSE BZKWCHE0602-26-02 17:40:00 Test Item Value Reference Range Interpretation Comments Comment2 (test code = Comment2) Sliding Scale [facility] GLUCOSE IVQQIZV4203-76-62 13:34:00 Test Item Value Reference Range Interpretation Comments Comment2 (test code = Comment2) Sliding Scale [facility] GLUCOSE GCJKCJJ1709-10-80 13:34:00 Test Item Value Reference Range Interpretation Comments Gluc POC Lifscn (test code = Gluc POC 110 70-99 H Lifscn) [facility] GLUCOSE UZUDTYT4191-12-52 13:34:00 Test Item Value Reference Range Interpretation Comments Comment1 (test code = Comment1) Not[facility]ATHA/ [facility]MswjzhwXRYCQSVOU4548-50-19 00:00:00 Test Item Value Reference Range Interpretation Comments U Preg (test code = U Negative (11/28/2011 N Preg) 19:00:00) [facility]enDmawwllKHQNRKILAK2258-46-65 00:00:00 Test Item Value Reference Range Interpretation Comments Micro? (test code = Performed (11/28/2011 N Micro?) 19:00:00) [facility] FallsZyytjmkLFJVFYNICR1975-15-78 00:00:00 Test Item Value Reference Range Interpretation Comments UA Sq Epi (test code Occasional /LPF N = UA Sq Epi) (11/28/2011 19:00:00) [facility] FallsJvvyfahKVISEGENTY6714-31-14 00:00:00 Test Item Value Reference Range Interpretation Comments UA RBC (test None Seen See_Comment N [Automated mes pastor] code = UA RBC) (11/28/2011 The system wh ich 19:00:00) generated this result transmitted ref erence range: <=2. The reference range was not used to int erpret this result as normal/abnormal . [facility] FallsAoyfyryHBVJWHXYLP6862-02-88 00:00:00 Test Item Value Reference Range Interpretation Comments UA WBC (test code Occasional See_Comment [Automate d message] The = UA WBC) system which ge nerated this result tra nsmitted reference range : <=5. The reference range was not used to interpr et this result as normal/abnormal . [facility] FallsTvjehitZXLPWRKTEP7312-86-06 00:00:00 Test Item Value Reference Range Interpretation Comments UA Protein (test code Negative mg/dL N = UA Protein) (11/28/2011 19:00:00) [facility] FallsDlpczwgACDPSTOFYU9253-19-93 00:00:00 Test Item Value Reference Range Interpretation Comments UA pH (test code = UA pH) 7.0 1 5.0-8.0 N [facility] FallsJmcasipNBDZKRHWUM2515-06-30 00:00:00 Test Item Value Reference Range Interpretation Comments UA Spec Grav (test code = UA Spec 1.020 1 N Grav) [facility] FallsMhlktnnPPWULWYKXG2900-63-78 00:00:00 Test Item Value Reference Range Interpretation Comments UA Turbidity (test code = Clear (11/28/2011 N UA Turbidity) 19:00:00) [facility] FallsKkurmvbQHVTBGRYPT1283-97-14 00:00:00 Test Item Value Reference Range Interpretation Comments UA Color (test code = Yellow *NA*(11/28/2011 UA Color) 19:00:00) [facility] FallsAightgxBOMJOALSHJ8832-25-56 00:00:00 Test Item Value Reference Range Interpretation Comments UA Urobilinogen (test code = UA 0.2 0.1-1.0 N Urobilinogen) [facility] FallsXfctgvpWPSDJUFMIE7089-59-43 00:00:00 Test Item Value Reference Range Interpretation Comments UA Blood (test code = Negative (11/28/2011 N UA Blood) 19:00:00) [facility] FallsLtptohwDNATFMHKZO7803-80-04 00:00:00 Test Item Value Reference Range Interpretation Comments UA Bili (test code = Negative *NA*(11/28/2011 UA Bili) 19:00:00) [facility]PlxwmnwKHNLMQGGJZ8320-84-76 00:00:00 Test Item Value Reference Range Interpretation Comments UA Ketones (test code = >=80 mg/dL A UA Ketones) *ABN*(11/28/2011 19:00:00) [facility] WorthSshpcawNEQHQEGLBB5847-79-60 00:00:00 Test Item Value Reference Range Interpretation Comments UA Glucose (test code = >=1000 mg/dL A UA Glucose) *ABN*(11/28/2011 19:00:00) [facility] FallsIktzzzqKQXHAZMSKL7580-93-53 00:00:00 Test Item Value Reference Range Interpretation Comments UA Nitrite (test code Negative (11/28/2011 N = UA Nitrite) 19:00:00) [facility] FallsYbwgqzcNIJZVGWGRC6184-86-82 00:00:00 Test Item Value Reference Range Interpretation Comments UA Leuk Est (test Negative (11/28/2011 N code = UA Leuk Est) 19:00:00) [facility] FallsJbiwbhkKZXSYXXXW3500-16-94 20:41:00 Test Item Value Reference Range Interpretation Comments pO2 Roberth (test code = pO2 Roberth) 60 20-49 H [facility] HospitalZhsurizJHSXQIEIF3459-27-20 20:41:00 Test Item Value Reference Range Interpretation Comments pCO2 Roberth (test code = pCO2 Roberth) 41 38-52 N [facility] HospitalEhazxrtOABFWYDUD5617-69-69 20:41:00 Test Item Value Reference Range Interpretation Comments pH Roberth (test code = pH Roberth) 7.45 7.28-7.42 H [facility] HospitalYfvxpwoLQJLPOVGB5688-03-19 20:41:00 Test Item Value Reference Range Interpretation Comments Temp Roberth (test code = Temp Roberth) 37.0 [facility] HospitalBrpgnrlNWYWRGIRE4158-24-82 20:41:00 Test Item Value Reference Range Interpretation Comments O2 Sat Roberth (test code = O2 Sat Roberth) 92.0 40.0-70.0 H [facility] HospitalMjmqvmmQNLXHJQKK1540-21-89 20:41:00 Test Item Value Reference Range Interpretation Comments BE Roberth (test code = 4 See_Comment H [Automa rohit message] The BE Roberth) system which ge nerated this result transmit rohit reference range : <=2. The reference range was not used to interpr et this result as reji l/abnormal. [facility] HospitalFnvkdusIRFONHTSC8934-72-94 20:41:00 Test Item Value Reference Range Interpretation Comments HCO3 Roberth (test code = HCO3 Roberth) 28.5 22.0-26.0 H [facility] HospitalMjhswooJZMNYAPKL8456-21-26 20:00:00 Test Item Value Reference Range Interpretation Comments Lactic Acid Lvl (test code = Lactic 1.6 0.5-2.2 N Acid Lvl) [facility] HospitalMheqawqHUBNWUWYT1167-11-35 20:00:00 Test Item Value Reference Range Interpretation Comments Lipase Lvl (test code = Lipase Lvl) 125 73-393 N [facility] HospitalKpuderbGMFUNXFVW9295-68-55 20:00:00 Test Item Value Reference Range Interpretation Comments Albumin Lvl (test code = Albumin Lvl) 4.2 3.5-5.0 N [facility] HospitalUyvcrwgHLTEZBHPW8824-29-65 20:00:00 Test Item Value Reference Range Interpretation Comments CO2 (test code = CO2) 23 24-32 L [facility] HospitalXzswkrzSEDOAYRIC9469-95-44 20:00:00 Test Item Value Reference Range Interpretation Comments Chloride Lvl (test code = Chloride Lvl) 98 95-109 N [facility] HospitalIcpwmoyMYDGRIOPJ6324-46-84 20:00:00 Test Item Value Reference Range Interpretation Comments Potassium Lvl (test code = Potassium 3.8 3.5-5.1 N Lvl) [facility] HospitalVvhqqfhJHSTUXPJH2026-95-99 20:00:00 Test Item Value Reference Range Interpretation Comments Sodium Lvl (test code = Sodium Lvl) 138 135-145 N [facility] HospitalXblxmmvBSGYMVNWQ3064-41-26 20:00:00 Test Item Value Reference Range Interpretation Comments Creatinine Lvl (test code = Creatinine 0.7 0.5-1.4 N Lvl) [facility] HospitalRgoclzgAZAAZGZCY5674-18-35 20:00:00 Test Item Value Reference Range Interpretation Comments BUN (test code = BUN) 9 7-22 N [facility] HospitalBbtayqmXOJZSHZTZ5713-78-77 20:00:00 Test Item Value Reference Range Interpretation Comments Glucose Lvl (test code = Glucose Lvl) 269 70-99 H [facility] HospitalWmntiqeORDHGSLYS9020-70-28 20:00:00 Test Item Value Reference Range Interpretation Comments B/C Ratio (test code = B/C Ratio) 13 6-25 N [facility] HospitalZenbzhcNZELWIKYZ5326-31-45 20:00:00 Test Item Value Reference Range Interpretation Comments AGAP (test code = AGAP) 20.8 10.0-20.0 H [facility] HospitalXzuypaeDNFEEVRAL3065-42-28 20:00:00 Test Item Value Reference Range Interpretation Comments Calcium Lvl (test code = Calcium Lvl) 9.3 8.5-10.5 N [facility] HospitalMyvlpkfMLELWTLFS2344-96-73 20:00:00 Test Item Value Reference Range Interpretation Comments Total Protein (test code = Total 6.7 6.4-8.4 N Protein) [facility] HospitalUcymdbxKQSOLOOMH5746-20-26 20:00:00 Test Item Value Reference Range Interpretation Comments A/G Ratio (test code = A/G Ratio) 1.7 0.7-1.6 H [facility] HospitalQnndyeqIZSNUKHNL7640-03-30 20:00:00 Test Item Value Reference Range Interpretation Comments Globulin (test code = Globulin) 2.5 2.0-4.0 N [facility] HospitalJrmaetaWYCVGAPOP0582-35-71 20:00:00 Test Item Value Reference Range Interpretation Comments AST (test code = AST) 18 See_Comment N [Auto mated message] The system which ge nerated this result transmit rohit reference range : <=37. The reference range was not used to interpr et this result as reji l/abnormal. [facility] HospitalWgmxpkxTQGXZXIGQ6898-11-36 20:00:00 Test Item Value Reference Range Interpretation Comments Alk Phos (test code = Alk Phos) 62 39-136 N [facility] HospitalMbqpptqNKFKUNNKP1208-76-67 20:00:00 Test Item Value Reference Range Interpretation Comments ALT (test code = ALT) 32 See_Comment N [Auto mated message] The system which ge nerated this result transmit rohit reference range : <=65. The reference range was not used to interpr et this result as reji l/abnormal. [facility] HospitalNazglckHKUAJCPWD8829-96-38 20:00:00 Test Item Value Reference Range Interpretation Comments Bili Total (test code = Bili Total) 0.7 0.2-1.3 N [facility] HospitalOnjcjgjTHYIDLRJGN7009-57-64 20:00:00 Test Item Value Reference Range Interpretation Comments Anisocyte (test code = 1+ *ABN*(11/28/2011 A Anisocyte) 15:00:00) [facility] HospitalMxqepfiVPPQGOCDVL7237-49-87 20:00:00 Test Item Value Reference Range Interpretation Comments Monocytes # (test code 0.1 See_Comment N [Aut omated message] The = Monocytes #) system which generated this result tra nsmitted reference range : <=0.8. The reference r leo was not used to int erpret this result as normal/abnormal . [facility] HospitalXvlwlejAZFDGMASWT9799-64-78 20:00:00 Test Item Value Reference Range Interpretation Comments Eosinophils # (test code 0.0 See_Comment N [A utomated message] The = Eosinophils #) system whic h generated this result tra nsmitted reference range : <=0.5. The reference r leo was not used to int erpret this result as normal/abnormal . [facility] HospitalAivacxzQBVFJCJBGF7775-68-66 20:00:00 Test Item Value Reference Range Interpretation Comments Basophils # (test code 0.0 See_Comment N [Aut omated message] The = Basophils #) system which generated this result tra nsmitted reference range : <=0.2. The reference r leo was not used to int erpret this result as normal/abnormal . [facility] HospitalCrjnengREVAAASZTD5801-37-46 20:00:00 Test Item Value Reference Range Interpretation Comments Neut Vac (test code = Slight *ABN*(11/28/2011 A Neut Vac) 15:00:00) [facility] HospitalWqjxqnrGKUCEZYQYJ4004-15-68 20:00:00 Test Item Value Reference Range Interpretation Comments Large Plt (test code = Slight *ABN*(11/28/2011 A Large Plt) 15:00:00) [facility] HospitalLyimjxhSXRLENSQTI1433-41-55 20:00:00 Test Item Value Reference Range Interpretation Comments Segs-Bands # (test code = Segs-Bands #) 5.7 1.5-8.1 N [facility] HospitalMuezxkkGEKABLLJPN2430-99-36 20:00:00 Test Item Value Reference Range Interpretation Comments Lymphocytes # (test code = Lymphocytes 0.8 1.0-5.5 L #) [facility] HospitalGknzqrnCMRWQEIYMW6029-28-77 20:00:00 Test Item Value Reference Range Interpretation Comments Eosinophils (test code = 0.2 See_Comment N [A utomated message] The Eosinophils) system which ge nerated this result tra nsmitted reference range : <=4.0. The reference r leo was not used to int erpret this result as normal/abnormal . [facility] HospitalVnjobdgDRCMZBABUP6883-87-27 20:00:00 Test Item Value Reference Range Interpretation Comments Basophils (test code = 0.0 See_Comment N [Aut omated message] The Basophils) system which ge nerated this result tra nsmitted reference range : <=1.0. The reference r leo was not used to int erpret this result as normal/abnormal . [facility] HospitalElguiouGXFDNMFJMD1235-19-84 20:00:00 Test Item Value Reference Range Interpretation Comments Monocytes (test code = Monocytes) 1.9 2.0-12.0 L [facility] HospitalNskiymfZLUBVCMPCF3561-49-79 20:00:00 Test Item Value Reference Range Interpretation Comments Segs (test code = Segs) 86.2 45.0-75.0 H [facility] HospitalOmbjipfDFRMFNSUOS4656-83-36 20:00:00 Test Item Value Reference Range Interpretation Comments Lymphocytes (test code = Lymphocytes) 11.7 20.0-40.0 L [facility] HospitalLxbdxswFBPXMZTVUK6355-76-83 20:00:00 Test Item Value Reference Range Interpretation Comments MPV (test code = MPV) 10.8 7.4-10.4 H [facility] HospitalVwrfhvcWEAHZOWPUU3443-55-50 20:00:00 Test Item Value Reference Range Interpretation Comments Platelet (test code = Platelet) 161 133-450 N [facility] HospitalCdnhqxiNUZSRSTLIH3370-57-76 20:00:00 Test Item Value Reference Range Interpretation Comments MCHC (test code = MCHC) 35.6 32.0-36.0 N [facility] HospitalUjbsvctDTGDKIHGAU9201-02-07 20:00:00 Test Item Value Reference Range Interpretation Comments RDW (test code = RDW) 12.4 11.5-14.5 N [facility] HospitalFesvdjhJYRRQINZJY9228-32-55 20:00:00 Test Item Value Reference Range Interpretation Comments MCH (test code = MCH) 30.7 pg 27.0-31.0 N [facility] HospitalFqtvqybJNQFYOEPSO3657-48-24 20:00:00 Test Item Value Reference Range Interpretation Comments MCV (test code = MCV) 86.1 81.0-99.0 N [facility] HospitalWushhtpAWYTOJYTER6620-23-73 20:00:00 Test Item Value Reference Range Interpretation Comments Hct (test code = Hct) 33.6 36.0-48.0 L [facility] HospitalHjpnyxuCLKYJZBURX0810-00-07 20:00:00 Test Item Value Reference Range Interpretation Comments Hgb (test code = Hgb) 12.0 12.0-16.0 N [facility] HospitalUtvtmwcZNIAVYTQUU7196-88-66 20:00:00 Test Item Value Reference Range Interpretation Comments RBC (test code = RBC) 3.90 4.20-5.40 L [facility] HospitalXlfryyuDOOCBAXYTO6962-82-90 20:00:00 Test Item Value Reference Range Interpretation Comments WBC (test code = WBC) 6.6 3.7-10.4 N [facility] HospitalEmokemhLSJPZUINZ2881-51-31 19:51:00 Test Item Value Reference Range Interpretation Comments UDS Note (test code = See Note UDS Note) 5*NA*(11/28/2011 14:51:00) [facility] HospitalOnkgiscZWKSRJUQJ5163-37-89 19:51:00 Test Item Value Reference Range Interpretation Comments U Phencyc Scr (test Negative code = U Phencyc Scr) *NA*(11/28/2011 14:51:00) [facility] HospitalRvkwlviRQBTIAXVO3669-12-24 19:51:00 Test Item Value Reference Range Interpretation Comments U Kelly Scr (test code Negative *NA*(11/28/2011 = U Kelly Scr) 14:51:00) [facility] HospitalVyzociyOGWKKPJNJ8435-10-74 19:51:00 Test Item Value Reference Range Interpretation Comments U Amph Scr (test code Negative *NA*(11/28/2011 = U Amph Scr) 14:51:00) [facility] HospitalYasaydpWGKTLIASX3241-86-17 19:51:00 Test Item Value Reference Range Interpretation Comments U Opiate Scr (test Negative code = U Opiate Scr) *NA*(11/28/2011 14:51:00) [facility] HospitalIlvungsHFPLLALUB9611-92-55 19:51:00 Test Item Value Reference Range Interpretation Comments U Cocaine Scr (test Negative code = U Cocaine Scr) *NA*(11/28/2011 14:51:00) [facility] HospitalXvwmcrhQCXXXGRKL3505-59-72 19:51:00 Test Item Value Reference Range Interpretation Comments U Cannab Scr (test Negative code = U Cannab Scr) *NA*(11/28/2011 14:51:00) [facility] HospitalCtaswfiNNNTDIDAS3207-66-89 19:51:00 Test Item Value Reference Range Interpretation Comments U Benzodia Scr (test Negative code = U Benzodia Scr) *NA*(11/28/2011 14:51:00) [facility] GLUCOSE SHCCIXC5100-90-28 16:20:00 Test Item Value Reference Range Interpretation Comments Comment1 (test code = Comment1) Ravi MAYS/ [facility] GLUCOSE CVUFZTP6131-22-23 16:20:00 Test Item Value Reference Range Interpretation Comments Gluc POC Lifscn (test code = Gluc POC 328 70-99 H Lifscn) [facility] FallsHgytwhoUHUNTJTCG3848-29-74 15:30:00 Test Item Value Reference Range Interpretation Comments U Preg (test code = U Negative (09/18/2011 N Preg) 10:30:00) [facility] FallsUikdhgzNOEPLHCNLI0752-10-71 15:30:00 Test Item Value Reference Range Interpretation Comments UA WBC (test code = UA None Seen (09/18/2011 N WBC) 10:30:00) [facility] FallsLhiiynwFEYWIIKXMO2085-71-46 15:30:00 Test Item Value Reference Range Interpretation Comments UA RBC (test None Seen See_Comment N [Automated mes pastro] code = UA RBC) (09/18/2011 The system wh ich 10:30:00) generated this result transmitted ref erence range: <=2. The reference range was not used to int erpret this result as normal/abnormal . [facility] FallsYkrqklkUDKHEYRFBC5134-88-59 15:30:00 Test Item Value Reference Range Interpretation Comments UA Bacteria (test code = None Seen (09/18/2011 N UA Bacteria) 10:30:00) [facility]ryd[facility]XUNBHVTYX5360-25-86 15:30:00 Test Item Value Reference Range Interpretation Comments UA Amorph Destiny (test Few /HPF A code = UA Amorph Destiny) *ABN*(09/18/2011 10:30:00) [facility] WorthGghogqdOAMOPZTVJK0528-27-82 15:30:00 Test Item Value Reference Range Interpretation Comments Micro? (test code = Performed (09/18/2011 N Micro?) 10:30:00) [facility] FallsIbygodvXPHWXYBNNJ7278-55-18 15:30:00 Test Item Value Reference Range Interpretation Comments UA Sq Epi (test code = Rare /LPF (09/18/2011 N UA Sq Epi) 10:30:00) [facility] FallsZwrmuwrBYEUHUHSUC1856-17-42 15:30:00 Test Item Value Reference Range Interpretation Comments UA Ketones (test code = 15 mg/dL A UA Ketones) *ABN*(09/18/2011 10:30:00) [facility] FallsFxhsjciIDLGVOOOYP8587-76-02 15:30:00 Test Item Value Reference Range Interpretation Comments UA Glucose (test code = >=1000 mg/dL A UA Glucose) *ABN*(09/18/2011 10:30:00) [facility] FallsKsqmezqKTVVULHECG0540-77-07 15:30:00 Test Item Value Reference Range Interpretation Comments UA Protein (test code = Trace A UA Protein) *ABN*(09/18/2011 10:30:00) [facility] FallsSzmjcmsKBUAIMEIAS3870-56-15 15:30:00 Test Item Value Reference Range Interpretation Comments UA Urobilinogen (test code = UA 0.2 0.1-1.0 N Urobilinogen) [facility] FallsHnhshndDDLRYCCFNF1444-88-85 15:30:00 Test Item Value Reference Range Interpretation Comments UA Blood (test code = Negative (09/18/2011 N UA Blood) 10:30:00) [facility] FallsPtaomxnJNENHVYGVD5450-46-98 15:30:00 Test Item Value Reference Range Interpretation Comments UA Bili (test code = Negative *NA*(09/18/2011 UA Bili) 10:30:00) [facility] FallsLthncwpZDPFJZFNYU4086-48-67 15:30:00 Test Item Value Reference Range Interpretation Comments UA Leuk Est (test Negative (09/18/2011 N code = UA Leuk Est) 10:30:00) [facility] FallsDzaeafmJSCOFLXBNN6659-96-49 15:30:00 Test Item Value Reference Range Interpretation Comments UA Nitrite (test code Negative (09/18/2011 N = UA Nitrite) 10:30:00) [facility] FallsSxrqdlqLCXWCRLBYQ3850-09-39 15:30:00 Test Item Value Reference Range Interpretation Comments UA pH (test code = UA pH) 7.5 1 5.0-8.0 N [facility] FallsSmuzoztQJSESPJLHF5720-00-64 15:30:00 Test Item Value Reference Range Interpretation Comments UA Spec Grav (test code = UA Spec 1.010 1 N Grav) [facility] FallsZfhwafzPAIQTDUQBO7753-19-97 15:30:00 Test Item Value Reference Range Interpretation Comments UA Turbidity (test code Slight Cloudy N = UA Turbidity) (09/18/2011 10:30:00) [facility] FallsPdwdwkdFMQWLAGPSY1244-24-56 15:30:00 Test Item Value Reference Range Interpretation Comments UA Color (test code = Yellow *NA*(09/18/2011 UA Color) 10:30:00) [facility] HospitalDstwbphWSIIDTFJK3339-13-38 14:07:00 Test Item Value Reference Range Interpretation Comments Phosphorus (test code = Phosphorus) 4.4 2.5-4.5 N [facility] HospitalYakqfogHOEHLWJKN5215-86-55 14:07:00 Test Item Value Reference Range Interpretation Comments Magnesium Lvl (test code = Magnesium 1.6 1.8-2.4 L Lvl) [facility] AXMQILS6024-29-45 14:01:00 Test Item Value Reference Range Interpretation Comments Gluc POC Lifscn (test code = Gluc POC no gt 70-99 A Lifscn) [facility] HospitalVhyxxdqJOOZQMWBD3274-79-95 13:52:00 Test Item Value Reference Range Interpretation Comments pO2 Roberth (test code = pO2 Roberth) 24 20-49 N [facility] HospitalCejnfsxZQYOYNBBV1090-94-45 13:52:00 Test Item Value Reference Range Interpretation Comments HCO3 Roberth (test code = HCO3 Roberth) 32.0 22.0-26.0 H [facility] HospitalHurksaqLMHCECYXB7713-38-97 13:52:00 Test Item Value Reference Range Interpretation Comments pCO2 Roberth (test code = pCO2 Roberth) 44 38-52 N [facility] HospitalFhrpipuHHURBCDQJ8201-07-37 13:52:00 Test Item Value Reference Range Interpretation Comments BE Roberth (test code = 7 See_Comment H [Automa rohit message] The BE Roberth) system which ge nerated this result transmit rohit reference range : <=2. The reference range was not used to interpr et this result as reji l/abnormal. [facility] HospitalDnhobogTLGVBXAYC6309-92-20 13:52:00 Test Item Value Reference Range Interpretation Comments O2 Sat Roberth (test code = O2 Sat Roberth) 48.0 40.0-70.0 N [facility] HospitalFbecguuAKLMMBCCX8078-38-27 13:52:00 Test Item Value Reference Range Interpretation Comments Temp Roberth (test code = Temp Roberth) 37.0 [facility] HospitalMlvayzsQRUYWJKTI3427-00-83 13:52:00 Test Item Value Reference Range Interpretation Comments pH Roberth (test code = pH Roberth) 7.47 7.28-7.42 H [facility] HospitalBlosthdVLFXBXQSG4224-94-50 13:52:00 Test Item Value Reference Range Interpretation Comments Calcium Lvl (test code = Calcium Lvl) 10.1 8.5-10.5 N [facility] HospitalVyyamgiENCWIVJCB8662-33-06 13:52:00 Test Item Value Reference Range Interpretation Comments Chloride Lvl (test code = Chloride Lvl) 92 95-109 L [facility] HospitalRriuvtaBODNIMFEV0444-17-85 13:52:00 Test Item Value Reference Range Interpretation Comments CO2 (test code = CO2) 30 24-32 N [facility] HospitalHlusdekOFQGGUFLO1817-15-13 13:52:00 Test Item Value Reference Range Interpretation Comments Potassium Lvl (test code = Potassium 3.5 3.5-5.1 N Lvl) [facility] HospitalXfhvzjrKFKGDCULV2272-82-68 13:52:00 Test Item Value Reference Range Interpretation Comments Sodium Lvl (test code = Sodium Lvl) 133 135-145 L [facility] HospitalErpvdyfEWLYDOVHN4285-48-94 13:52:00 Test Item Value Reference Range Interpretation Comments Creatinine Lvl (test code = Creatinine 1.3 0.5-1.4 N Lvl) [facility] HospitalEobftudJGAGJHCJB3301-78-54 13:52:00 Test Item Value Reference Range Interpretation Comments Glucose Lvl (test code = Glucose Lvl) 383 70-99 H [facility] HospitalIfbiwoiTAIJARZSF8858-82-92 13:52:00 Test Item Value Reference Range Interpretation Comments BUN (test code = BUN) 17 7-22 N [facility] HospitalYvnfuitQHKRNGFYH9646-89-74 13:52:00 Test Item Value Reference Range Interpretation Comments AGAP (test code = AGAP) 14.5 10.0-20.0 N [facility] HospitalWhyybbzWLRPFXQCFC7814-29-83 13:52:00 Test Item Value Reference Range Interpretation Comments MPV (test code = MPV) 12.0 7.4-10.4 H [facility] HospitalDxbicstQKXWLLSNWG8729-99-37 13:52:00 Test Item Value Reference Range Interpretation Comments Platelet (test code = Platelet) 226 133-450 N [facility] HospitalMtgqjggHXEVCIRUHC5927-32-18 13:52:00 Test Item Value Reference Range Interpretation Comments MCHC (test code = MCHC) 33.7 32.0-36.0 N [facility] HospitalKpkvqjzZBIKRRNYAZ5043-19-94 13:52:00 Test Item Value Reference Range Interpretation Comments MCH (test code = MCH) 28.5 pg 27.0-31.0 N [facility] HospitalAdwqsbsNYBNARTLUH5315-67-78 13:52:00 Test Item Value Reference Range Interpretation Comments RDW (test code = RDW) 15.1 11.5-14.5 H [facility] HospitalZzrdslyVEELILJXJX0162-98-77 13:52:00 Test Item Value Reference Range Interpretation Comments MCV (test code = MCV) 84.6 81.0-99.0 N [facility] HospitalZrswxiyFMQJMFGVKY4268-00-64 13:52:00 Test Item Value Reference Range Interpretation Comments Hct (test code = Hct) 36.4 36.0-48.0 N [facility] HospitalAvntshcJECNUSAVYC1317-54-97 13:52:00 Test Item Value Reference Range Interpretation Comments Hgb (test code = Hgb) 12.3 12.0-16.0 N [facility] HospitalXrwjcluGDJNCFXDJK2285-38-55 13:52:00 Test Item Value Reference Range Interpretation Comments RBC (test code = RBC) 4.30 4.20-5.40 N [facility] HospitalSrujatrLUFSGORIIQ7318-72-49 13:52:00 Test Item Value Reference Range Interpretation Comments WBC (test code = WBC) 11.7 3.7-10.4 H [facility] HospitalMdqutviTCZZDIXAYV6652-22-33 13:52:00 Test Item Value Reference Range Interpretation Comments Monocytes (test code = Monocytes) 2.9 2.0-12.0 N [facility] HospitalMoctwbaDUIJKMXXBB5371-08-76 13:52:00 Test Item Value Reference Range Interpretation Comments Eosinophils (test code = 0.2 See_Comment N [A utomated message] The Eosinophils) system which ge nerated this result tra nsmitted reference range : <=4.0. The reference r leo was not used to int erpret this result as normal/abnormal . [facility] HospitalKmlffvgYRYNEPXKWO8880-78-00 13:52:00 Test Item Value Reference Range Interpretation Comments Basophils (test code = 0.0 See_Comment N [Aut omated message] The Basophils) system which ge nerated this result tra nsmitted reference range : <=1.0. The reference r leo was not used to int erpret this result as normal/abnormal . [facility] HospitalYpimksjCDOIABXCHM0066-07-67 13:52:00 Test Item Value Reference Range Interpretation Comments Eosinophils # (test code 0.0 See_Comment N [A utomated message] The = Eosinophils #) system [facility] h generated this result tra nsmitted reference range : <=0.5. The reference r leo was not used to int erpret this result as normal/abnormal . [facility] HospitalHpwirgvWHCEAFBNLW1375-19-73 13:52:00 Test Item Value Reference Range Interpretation Comments Monocytes # (test code 0.3 See_Comment N [Aut omated message] The = Monocytes #) system which generated this result tra nsmitted reference range : <=0.8. The reference r leo was not used to int erpret this result as normal/abnormal . [facility] HospitalGtgbgmwCJCAJNIOWC5904-57-29 13:52:00 Test Item Value Reference Range Interpretation Comments Segs (test code = Segs) 92.0 45.0-75.0 H [facility] HospitalPharqvqKHZRLHBVZQ8759-78-45 13:52:00 Test Item Value Reference Range Interpretation Comments Lymphocytes (test code = Lymphocytes) 4.9 20.0-40.0 L [facility] HospitalVubxszfXTPRWBSNSL5095-96-12 13:52:00 Test Item Value Reference Range Interpretation Comments Spherocyte (test code = Rare A Spherocyte) *ABN*(09/18/2011 08:52:00) [facility] HospitalLfdioscNRILAVEQEA6077-19-01 13:52:00 Test Item Value Reference Range Interpretation Comments Large Plt (test code = Slight *ABN*(09/18/2011 A Large Plt) 08:52:00) [facility] HospitalIkdcipiRVRJHKREPL7997-39-50 13:52:00 Test Item Value Reference Range Interpretation Comments Microcyte (test code = 1+ *ABN*(09/18/2011 A Microcyte) 08:52:00) [facility] HospitalShjupriCPTDPWPWWR3424-35-67 13:52:00 Test Item Value Reference Range Interpretation Comments Schistocyte (test code = Schistocyte) Rare [facility] HospitalGcwltxpMDUSVYOJCR4487-47-40 13:52:00 Test Item Value Reference Range Interpretation Comments Macrocyte (test code = 1+ *ABN*(09/18/2011 A Macrocyte) 08:52:00) [facility] HospitalOwgmqdlPQVWORRFXG4108-82-26 13:52:00 Test Item Value Reference Range Interpretation Comments Lymphocytes # (test code = Lymphocytes 0.6 1.0-5.5 L #) [facility] HospitalUvevuypHMPAJMZJFO6521-79-32 13:52:00 Test Item Value Reference Range Interpretation Comments Segs-Bands # (test code = Segs-Bands #) 10.8 1.5-8.1 H [facility] McallenHqxhqmzEZSGPEOUKU2741-37-68 13:52:00 Test Item Value Reference Range Interpretation Comments Basophils # (test code 0.0 See_Comment N [Aut omated message] The = Basophils #) system which generated this result tra nsmitted reference range : <=0.2. The reference r leo was not used to int erpret this result as normal/abnormal . [facility] FallsBljtyhdIWQFMZJMTK3766-53-72 13:52:00 Test Item Value Reference Range Interpretation Comments Anisocyte (test code = 1+ *ABN*(09/18/2011 A Anisocyte) 08:52:00) [facility] McallenNvahmlcSXMAWMDNWN5271-25-76 13:52:00 Test Item Value Reference Range Interpretation Comments CDC-HIV 1/2 Ab (test Negative *NA*(09/18/2011 code = CDC-HIV 1/2 08:52:00) Ab) [facility] GLUCOSE [id number] 17:34:00 Test Item Value Reference Range Interpretation Comments Gluc POC Lifscn (test code = Gluc POC 215 70-99 H Lifscn) [facility] GLUCOSE NBFKFHH5215-52-94 17:34:00 Test Item Value Reference Range Interpretation Comments Comment1 (test code = Comment1) Notify RN/ [facility] GLUCOSE LHNORHZ0972-25-81 11:43:00 Test Item Value Reference Range Interpretation Comments Comment1 (test code = Comment1) Notify RN/ [facility] GLUCOSE AJZTEXT3437-82-33 11:43:00 Test Item Value Reference Range Interpretation Comments Gluc POC Lifscn (test code = Gluc POC 91 65-110 N Lifscn) [facility] GLUCOSE NZZHENY8682-01-17 02:45:00 Test Item Value Reference Range Interpretation Comments Comment1 (test code = Comment1) Notify RN/ [facility] GLUCOSE PGRVLPZ9891-56-81 02:45:00 Test Item Value Reference Range Interpretation Comments Gluc POC Lifscn (test code = Gluc POC 148 65-110 H Lifscn) [facility] McallenPxqfkmjEQKAPZFMZ3466-93-13 08:47:00 Test Item Value Reference Range Interpretation Comments Sodium Lvl (test code = Sodium Lvl) 143 135-145 N [facility] HospitalWbukkuvCKIOGNSBL2776-35-62 08:47:00 Test Item Value Reference Range Interpretation Comments Glucose Lvl (test code = Glucose Lvl) 105 [facility] HospitalJixgsbiIUZWSMTEM5714-66-00 08:47:00 Test Item Value Reference Range Interpretation Comments CO2 (test code = CO2) 29 24-32 N [facility] HospitalBketanyTFVKTPZVN8658-58-05 08:47:00 Test Item Value Reference Range Interpretation Comments Chloride Lvl (test code = Chloride Lvl) 103 95-109 N [facility] HospitalEroqzsmKQSPGHKGZ8379-94-23 08:47:00 Test Item Value Reference Range Interpretation Comments BUN (test code = BUN) 10 7-22 N [facility] HospitalDkkbztzIWUHWUXGL9722-88-66 08:47:00 Test Item Value Reference Range Interpretation Comments Potassium Lvl (test code = Potassium 3.8 3.5-5.1 N Lvl) [facility] HospitalSstqtoaDJWVMMTTM7527-62-50 08:47:00 Test Item Value Reference Range Interpretation Comments Creatinine Lvl (test code = Creatinine 0.6 0.5-1.4 N Lvl) [facility] HospitalPunyidmLSPTUOYOV7466-87-94 08:47:00 Test Item Value Reference Range Interpretation Comments Calcium Lvl (test code = Calcium Lvl) 8.5 8.5-10.5 N [facility] HospitalLysddwzCVPGUOVXK7503-34-67 08:47:00 Test Item Value Reference Range Interpretation Comments AGAP (test code = AGAP) 14.8 10.0-20.0 N [facility] HospitalGisnfrlSNTCERMNPO2256-61-03 08:47:00 Test Item Value Reference Range Interpretation Comments MCH (test code = MCH) 28.9 pg 27.0-31.0 N [facility] HospitalYgalyjbFYUDUGQMCE9628-56-03 08:47:00 Test Item Value Reference Range Interpretation Comments MCV (test code = MCV) 82.1 81.0-99.0 N [facility] HospitalIhoxtdlJLTMEBLWSM9462-44-80 08:47:00 Test Item Value Reference Range Interpretation Comments Hct (test code = Hct) 25.9 36.0-48.0 L [facility] HospitalGkdnccsADUYOGCRZX4957-48-83 08:47:00 Test Item Value Reference Range Interpretation Comments Platelet (test code = Platelet) 233 133-450 N [facility] HospitalFyzcchkRFKHLVTBMU0007-25-19 08:47:00 Test Item Value Reference Range Interpretation Comments RDW (test code = RDW) 14.5 11.5-14.5 N [facility] HospitalGrdhweoEFMGHEUBGQ3573-34-77 08:47:00 Test Item Value Reference Range Interpretation Comments MCHC (test code = MCHC) 35.2 32.0-36.0 N [facility] HospitalZqwgdxhVGHGBTOHIW0118-74-54 08:47:00 Test Item Value Reference Range Interpretation Comments Hgb (test code = Hgb) 9.1 12.0-16.0 L [facility] HospitalQjxxxwgBRVZNRHJLB2368-18-85 08:47:00 Test Item Value Reference Range Interpretation Comments RBC (test code = RBC) 3.15 4.20-5.40 L [facility] HospitalIhwtupmETTLHWIESF2732-67-86 08:47:00 Test Item Value Reference Range Interpretation Comments MPV (test code = MPV) 9.0 7.4-10.4 N [facility] HospitalVmobvegITKCCRMLEL8442-82-59 08:47:00 Test Item Value Reference Range Interpretation Comments WBC (test code = WBC) 6.3 3.7-10.4 N [facility] HospitalPzzhnmjGEGBLCFEKQ9120-97-96 08:47:00 Test Item Value Reference Range Interpretation Comments Eosinophils # (test code 0.0 See_Comment N [A utomated message] The = Eosinophils #) system whic h generated this result tra nsmitted reference range : <=0.5. The reference r leo was not used to int erpret this result as normal/abnormal . [facility] HospitalWosyaxqFKPMZYCCVY0374-55-83 08:47:00 Test Item Value Reference Range Interpretation Comments Basophils # (test code 0.0 See_Comment N [Aut omated message] The = Basophils #) system which generated this result tra nsmitted reference range : <=0.2. The reference r leo was not used to int erpret this result as normal/abnormal . [facility] HospitalCfuauwdMKBGNHYXZN1141-19-99 08:47:00 Test Item Value Reference Range Interpretation Comments Segs-Bands # (test code = Segs-Bands #) 3.8 1.5-8.1 N [facility] HospitalVvrqcqbJLSEJWLSKP0927-97-79 08:47:00 Test Item Value Reference Range Interpretation Comments Lymphocytes # (test code = Lymphocytes 2.0 1.0-5.5 N #) [facility] HospitalGbcbjshGLRFMZAATB3936-49-99 08:47:00 Test Item Value Reference Range Interpretation Comments Basophils (test code = 0.5 See_Comment N [Aut omated message] The Basophils) system which ge nerated this result tra nsmitted reference range : <=1.0. The reference r leo was not used to int erpret this result as normal/abnormal . [facility] HospitalHtugjotEKMYRGSRAD4278-02-54 08:47:00 Test Item Value Reference Range Interpretation Comments Eosinophils (test code = 0.7 See_Comment N [A utomated message] The Eosinophils) system which ge nerated this result tra nsmitted reference range : <=4.0. The reference r leo was not used to int erpret this result as normal/abnormal . [facility] HospitalVzsuhecIYOSSSNMPV9709-59-59 08:47:00 Test Item Value Reference Range Interpretation Comments Monocytes (test code = Monocytes) 6.2 2.0-12.0 N [facility] HospitalBojeiarRICDBRBYUA0144-98-50 08:47:00 Test Item Value Reference Range Interpretation Comments Segs (test code = Segs) 61.1 45.0-75.0 N [facility] HospitalMjxcfufQDAQOTBHNN4383-99-83 08:47:00 Test Item Value Reference Range Interpretation Comments Lymphocytes (test code = Lymphocytes) 31.5 20.0-40.0 N [facility] HospitalVkparsiGAHHSIPTWW5818-56-95 08:47:00 Test Item Value Reference Range Interpretation Comments Monocytes # (test code 0.4 See_Comment N [Aut omated message] The = Monocytes #) system which generated this result tra nsmitted reference range : <=0.8. The reference r leo was not used to int erpret this result as normal/abnormal . [facility] HospitalUtpuygtMXIBUWHMH7896-80-88 10:54:00 Test Item Value Reference Range Interpretation Comments CO2 (test code = CO2) 27 24-32 N [facility] HospitalZcxmyplTOUXLAMBH6131-51-88 10:54:00 Test Item Value Reference Range Interpretation Comments Chloride Lvl (test code = Chloride Lvl) 104 95-109 N [facility] HospitalLbwyuekWENPLOWNY5494-72-18 10:54:00 Test Item Value Reference Range Interpretation Comments Creatinine Lvl (test code = Creatinine 0.5 0.5-1.4 N Lvl) [facility] HospitalWpsmjkmBSCNCFSSX9459-24-27 10:54:00 Test Item Value Reference Range Interpretation Comments BUN (test code = BUN) 10 7-22 N [facility] HospitalMygumyxLDECDTHXV3007-33-02 10:54:00 Test Item Value Reference Range Interpretation Comments Potassium Lvl (test code = Potassium 4.1 3.5-5.1 N Lvl) [facility] HospitalIkdwnvkGTRSVWGHO4751-28-20 10:54:00 Test Item Value Reference Range Interpretation Comments Sodium Lvl (test code = Sodium Lvl) 141 135-145 N [facility] HospitalAwcyppxCNBKBFYBT3561-81-06 10:54:00 Test Item Value Reference Range Interpretation Comments Glucose Lvl (test code = Glucose Lvl) 83 [facility] HospitalVedngdqEFOUJTTNR0993-80-80 10:54:00 Test Item Value Reference Range Interpretation Comments Calcium Lvl (test code = Calcium Lvl) 8.4 8.5-10.5 L [facility] HospitalInsluzaRQDCKQXLP5639-18-76 10:54:00 Test Item Value Reference Range Interpretation Comments AGAP (test code = AGAP) 14.1 10.0-20.0 N [facility] HospitalOhwmlkuOLMXRBSUEZ5011-62-19 10:54:00 Test Item Value Reference Range Interpretation Comments Hct (test code = Hct) 35.5 36.0-48.0 L [facility] HospitalFoghdysRQBZJCAQBN8783-55-38 10:54:00 Test Item Value Reference Range Interpretation Comments WBC (test code = WBC) 4.7 3.7-10.4 N [facility] HospitalKyyqwlxIGAGYRBYIU8399-02-20 10:54:00 Test Item Value Reference Range Interpretation Comments MCV (test code = MCV) 92.6 81.0-99.0 N [facility] HospitalFbpvaaqOPHYBZKBWN0976-35-27 10:54:00 Test Item Value Reference Range Interpretation Comments MCH (test code = MCH) 31.4 pg 27.0-31.0 H [facility] HospitalBxmolzuHRZLSYJWPO0456-46-19 10:54:00 Test Item Value Reference Range Interpretation Comments RBC (test code = RBC) 3.84 4.20-5.40 L [facility] HospitalNvhiyhiZKCVMFARRU2871-68-67 10:54:00 Test Item Value Reference Range Interpretation Comments Hgb (test code = Hgb) 12.1 12.0-16.0 N [facility] HospitalFweqphuQXOFOUJBXT6941-91-43 10:54:00 Test Item Value Reference Range Interpretation Comments Platelet (test code = Platelet) 287 133-450 N [facility] HospitalIqrrbfuPFYIJPIVRT6211-87-65 10:54:00 Test Item Value Reference Range Interpretation Comments RDW (test code = RDW) 12.7 11.5-14.5 N [facility] HospitalDezfscvTHQBFYLFSI9936-07-79 10:54:00 Test Item Value Reference Range Interpretation Comments MCHC (test code = MCHC) 33.9 32.0-36.0 N [facility] HospitalQdgxfarKCMJWWIIPA9866-05-10 10:54:00 Test Item Value Reference Range Interpretation Comments MPV (test code = MPV) 7.2 7.4-10.4 L [facility] HospitalVowroedOSNPDEYAYW1854-72-47 10:54:00 Test Item Value Reference Range Interpretation Comments INR (test code = INR) 0.95 0.85-1.17 N [facility] HospitalWpaibmzJGHBJQAVWD1337-34-28 10:54:00 Test Item Value Reference Range Interpretation Comments PT (test code = PT) 12.7 s 12.0-14.7 N [facility] HospitalHlbmzhrATFLDTGRBT4370-17-57 10:54:00 Test Item Value Reference Range Interpretation Comments PTT (test code = PTT) 28.5 s 22.9-35.8 N [facility] HospitalPpilhykIPKZPNUGQN7946-64-16 10:54:00 Test Item Value Reference Range Interpretation Comments Eosinophils # (test code 0.1 See_Comment N [A utomated message] The = Eosinophils #) system whic h generated this result tra nsmitted reference range : <=0.5. The reference r leo was not used to int erpret this result as normal/abnormal . [facility] HospitalXyrcdejOPERRNPATZ3831-52-56 10:54:00 Test Item Value Reference Range Interpretation Comments Basophils # (test code 0.0 See_Comment N [Aut omated message] The = Basophils #) system which generated this result tra nsmitted reference range : <=0.2. The reference r leo was not used to int erpret this result as normal/abnormal . [facility] HospitalRawdpnqUXLTESRLXM5453-91-49 10:54:00 Test Item Value Reference Range Interpretation Comments Basophils (test code = 0.4 See_Comment N [Aut omated message] The Basophils) system which ge nerated this result tra nsmitted reference range : <=1.0. The reference r leo was not used to int erpret this result as normal/abnormal . [facility] HospitalQjbrbhgMDSSXEWYCJ1561-91-01 10:54:00 Test Item Value Reference Range Interpretation Comments Segs-Bands # (test code = Segs-Bands #) 2.1 1.5-8.1 N [facility] HospitalHtvxtmaDYZESYERLE4242-53-81 10:54:00 Test Item Value Reference Range Interpretation Comments Monocytes (test code = Monocytes) 9.0 2.0-12.0 N [facility] HospitalAqympziHQNBDYOMHC9469-83-33 10:54:00 Test Item Value Reference Range Interpretation Comments Eosinophils (test code = 2.4 See_Comment N [A utomated message] The Eosinophils) system which ge nerated this result tra nsmitted reference range : <=4.0. The reference r leo was not used to int erpret this result as normal/abnormal . [facility] HospitalHwzymfhYOUFAXOEKC5502-23-84 10:54:00 Test Item Value Reference Range Interpretation Comments Monocytes # (test code 0.4 See_Comment N [Aut omated message] The = Monocytes #) system which generated this result tra nsmitted reference range : <=0.8. The reference r leo was not used to int erpret this result as normal/abnormal . [facility] HospitalTmnmkekXRQWRVOLTR2393-77-95 10:54:00 Test Item Value Reference Range Interpretation Comments Lymphocytes # (test code = Lymphocytes 2.0 1.0-5.5 N #) [facility] HospitalArcvfmtKCPMJOBPXN0955-61-22 10:54:00 Test Item Value Reference Range Interpretation Comments Lymphocytes (test code = Lymphocytes) 42.8 20.0-40.0 H [facility] HospitalXhjgrymVQHARYNUJK5516-03-09 10:54:00 Test Item Value Reference Range Interpretation Comments Segs (test code = Segs) 45.4 45.0-75.0 N [facility] HospitalRghjnufQAJYEVOWZ5569-11-22 10:02:00 Test Item Value Reference Range Interpretation Comments Chloride Lvl (test code = Chloride Lvl) 105 95-109 N [facility] HospitalIdpwuzlDAGTVDNDO4163-83-21 10:02:00 Test Item Value Reference Range Interpretation Comments Potassium Lvl (test code = Potassium 4.1 3.5-5.1 N Lvl) [facility] HospitalFfkikusPDWRFIPMN2542-61-94 10:02:00 Test Item Value Reference Range Interpretation Comments Sodium Lvl (test code = Sodium Lvl) 143 135-145 N [facility] HospitalSlrpxdbSGMINQEJN9857-84-00 10:02:00 Test Item Value Reference Range Interpretation Comments CO2 (test code = CO2) 29 24-32 N [facility] HospitalTiqbxzbAICFGZYBI0536-52-46 10:02:00 Test Item Value Reference Range Interpretation Comments Calcium Lvl (test code = Calcium Lvl) 8.7 8.5-10.5 N [facility] HospitalIxjfiubZLJWAZBNT4820-50-28 10:02:00 Test Item Value Reference Range Interpretation Comments BUN (test code = BUN) 6 7-22 L [facility] HospitalBatsjutOQAULZNAY5762-95-20 10:02:00 Test Item Value Reference Range Interpretation Comments Creatinine Lvl (test code = Creatinine 0.6 0.5-1.4 N Lvl) [facility] HospitalDwmdqpoFTGEPHOAL5593-02-47 10:02:00 Test Item Value Reference Range Interpretation Comments Glucose Lvl (test code = Glucose Lvl) 118 [facility] HospitalGmtpejkXGREPBXWI0840-92-86 10:02:00 Test Item Value Reference Range Interpretation Comments AGAP (test code = AGAP) 13.1 10.0-20.0 N [facility] HospitalWabtgfeFXDQJGKMQZ8680-80-20 10:02:00 Test Item Value Reference Range Interpretation Comments Basophils # (test code 0.0 See_Comment N [Aut omated message] The = Basophils #) system which generated this result tra nsmitted reference range : <=0.2. The reference r leo was not used to int erpret this result as normal/abnormal . [facility] HospitalXzehxqxANODATYWJE2612-08-21 10:02:00 Test Item Value Reference Range Interpretation Comments Monocytes # (test code 0.3 See_Comment N [Aut omated message] The = Monocytes #) system which generated this result tra nsmitted reference range : <=0.8. The reference r leo was not used to int erpret this result as normal/abnormal . [facility] HospitalAitchjvERRQWWKAME2025-09-25 10:02:00 Test Item Value Reference Range Interpretation Comments Eosinophils # (test code 0.1 See_Comment N [A utomated message] The = Eosinophils #) system whic h generated this result tra nsmitted reference range : <=0.5. The reference r leo was not used to int erpret this result as normal/abnormal . [facility] HospitalGxfkkhwPWTDIQLSVF8876-27-71 10:02:00 Test Item Value Reference Range Interpretation Comments Segs-Bands # (test code = Segs-Bands #) 2.8 1.5-8.1 N [facility] HospitalOytjikwRAWZGMXDWJ0925-12-20 10:02:00 Test Item Value Reference Range Interpretation Comments Lymphocytes # (test code = Lymphocytes 1.7 1.0-5.5 N #) [facility] HospitalJgcounwXWXDMMNHJB7810-75-35 10:02:00 Test Item Value Reference Range Interpretation Comments Basophils (test code = 0.6 See_Comment N [Aut omated message] The Basophils) system which ge nerated this result tra nsmitted reference range : <=1.0. The reference r leo was not used to int erpret this result as normal/abnormal . [facility] HospitalBazacevWCVMFOWDRU1229-93-82 10:02:00 Test Item Value Reference Range Interpretation Comments Monocytes (test code = Monocytes) 6.9 2.0-12.0 N [facility] HospitalJvnhzkaUGZRABPWGN2942-70-05 10:02:00 Test Item Value Reference Range Interpretation Comments Eosinophils (test code = 2.0 See_Comment N [A utomated message] The Eosinophils) system which ge nerated this result tra nsmitted reference range : <=4.0. The reference r leo was not used to int erpret this result as normal/abnormal . [facility] HospitalDepqqyrHGALCVFYSF4282-17-25 10:02:00 Test Item Value Reference Range Interpretation Comments Segs (test code = Segs) 55.8 45.0-75.0 N [facility] HospitalSsaylpaWQQTIVPQHT8191-69-11 10:02:00 Test Item Value Reference Range Interpretation Comments Lymphocytes (test code = Lymphocytes) 34.7 20.0-40.0 N [facility] HospitalDwmrvizIKLPHKYLOC9432-70-29 10:02:00 Test Item Value Reference Range Interpretation Comments PTT (test code = PTT) 32.2 s 22.9-35.8 N [facility] HospitalWiuadxbMPRTHKJYEK5400-88-01 10:02:00 Test Item Value Reference Range Interpretation Comments PT (test code = PT) 13.3 s 12.0-14.7 N [facility] HospitalHxfmrihXJLVWYNQAA7745-01-21 10:02:00 Test Item Value Reference Range Interpretation Comments INR (test code = INR) 1.01 0.85-1.17 N [facility]NkqynhyGXYPZXYIPG1508-09-06 10:02:00 Test Item Value Reference Range Interpretation Comments Hct (test code = Hct) 27.5 36.0-48.0 L [facility] HospitalFvcqmybAERPPEHQXD6009-61-89 10:02:00 Test Item Value Reference Range Interpretation Comments RBC (test code = RBC) 3.34 4.20-5.40 L [facility] HospitalKllzslfACLKYDQKMS5682-71-66 10:02:00 Test Item Value Reference Range Interpretation Comments Hgb (test code = Hgb) 9.7 12.0-16.0 L [facility] HospitalOiflhxrMGRNCWOYKA9840-13-04 10:02:00 Test Item Value Reference Range Interpretation Comments WBC (test code = WBC) 5.0 3.7-10.4 N [facility] HospitalUbmdtqqEQDBGCFAJJ4129-19-14 10:02:00 Test Item Value Reference Range Interpretation Comments MPV (test code = MPV) 9.2 7.4-10.4 N [facility] HospitalHzjnymmMFSHJJXRJN3982-20-41 10:02:00 Test Item Value Reference Range Interpretation Comments Platelet (test code = Platelet) 240 133-450 N [facility] HospitalAhiqskuKSZUDIUKDB9842-18-49 10:02:00 Test Item Value Reference Range Interpretation Comments RDW (test code = RDW) 14.3 11.5-14.5 N [facility] HospitalCqvjzugAMEAILWYGH2838-77-88 10:02:00 Test Item Value Reference Range Interpretation Comments MCHC (test code = MCHC) 35.2 32.0-36.0 N [facility] HospitalMcjuaypPSLTNNBZDF3077-02-06 10:02:00 Test Item Value Reference Range Interpretation Comments MCH (test code = MCH) 28.9 pg 27.0-31.0 N [facility] SystemFsfoumlJSSHSAAZHS6927-17-80 10:02:00 Test Item Value Reference Range Interpretation Comments MCV (test code = MCV) 82.1 81.0-99.0 N [facility] FallsComokudIINVGBAEG5107-95-97 09:24:00 Test Item Value Reference Range Interpretation Comments Magnesium Lvl (test code = Magnesium 2.1 1.8-2.4 N Lvl) [facility] FallsGdbwxhbYdhmxjihiiqk1991-96-36 00:32:00 Test Item Value Reference Range Interpretation Comments Culture: Aspirate/Body Fluid/Tissue (test code = Culture: Aspirate/Body Fluid/Tissue) [facility]RefkfxyYitgtyunvouy0182-08-75 00:32:00 Test Item Value Reference Range Interpretation Comments Culture: Anaerobic (test code = Culture: Anaerobic) [facility] HospitalRlczlbjBIGFHTONQ4625-34-48 17:10:00 Test Item Value Reference Range Interpretation Comments Temp Roberth (test code = Temp Roberth) 37.0 [facility] HospitalAscmypoTVIJKAMFD5318-61-21 17:10:00 Test Item Value Reference Range Interpretation Comments O2 Sat Roberth (test code = O2 Sat Roberth) 27.0 40.0-70.0 L [facility] HospitalJuyttenOSXDZKLMJ6280-22-92 17:10:00 Test Item Value Reference Range Interpretation Comments pCO2 Roberth (test code = pCO2 Roberth) 47 38-52 N [facility] HospitalCkbrznxDTEJGBFEO8198-40-16 17:10:00 Test Item Value Reference Range Interpretation Comments pH Roberth (test code = pH Roberth) 7.37 7.28-7.42 N [facility] HospitalKblkcsxFLIILMTYV7378-08-86 17:10:00 Test Item Value Reference Range Interpretation Comments BE Roberth (test code = 1 See_Comment N [Automa rohit message] The BE Roberth) system which ge nerated this result transmit rohit reference range : <=2. The reference range was not used to interpr et this result as reji l/abnormal. [facility] HospitalKjowgkoIOYUZKFEE7577-45-29 17:10:00 Test Item Value Reference Range Interpretation Comments HCO3 Roberth (test code = HCO3 Roberth) 27.2 22.0-26.0 H [facility] HospitalMwxoixjHIEOCYGHG2963-75-15 17:10:00 Test Item Value Reference Range Interpretation Comments pO2 Roberth (test code = pO2 Roberth) 19 20-49 L [facility] PasoLyckdfqVkiudhdubwlr9812-51-91 14:18:00 Test Item Value Reference Range Interpretation Comments Culture: Blood (test code = Culture: Blood) [facility] PasoJnzglbsPfzsdwbttvlh9553-47-48 14:18:00 Test Item Value Reference Range Interpretation Comments Culture: Wound/Abscess w/Gram Stain (test code = Culture: Wound/Abscess w/Gram Stain) [facility] HospitalLpnfgvuGCCKLKZGL1767-02-04 13:09:00 Test Item Value Reference Range Interpretation Comments Lactic Acid Lvl (test code = Lactic 1.0 0.5-2.2 N Acid Lvl) [facility] HospitalJnrfpwxOMHKIFQAW5349-12-66 12:20:00 Test Item Value Reference Range Interpretation Comments U Preg (test code = U Negative (09/01/2011 N Preg) 07:20:00) [facility] FallsGglaijeZOPXMQSJTB2315-42-84 12:20:00 Test Item Value Reference Range Interpretation Comments UA Sq Epi (test code Occasional /LPF N = UA Sq Epi) (09/01/2011 07:20:00) [facility] FallsMgzazmvWOUKJMNRDD1511-13-31 12:20:00 Test Item Value Reference Range Interpretation Comments UA Leuk Est (test Negative (09/01/2011 N code = UA Leuk Est) 07:20:00) [facility] FallsJptmeufEXGCGXSQKZ4075-36-36 12:20:00 Test Item Value Reference Range Interpretation Comments UA Nitrite (test code Negative (09/01/2011 N = UA Nitrite) 07:20:00) [facility]ydalklNOYPNXRNSW2986-48-98 12:20:00 Test Item Value Reference Range Interpretation Comments UA Urobilinogen (test code = UA 0.2 0.1-1.0 N Urobilinogen) [facility] WorthWnjuafaQLQGFRNZJD7708-58-68 12:20:00 Test Item Value Reference Range Interpretation Comments UA Blood (test code = Negative (09/01/2011 N UA Blood) 07:20:00) [facility] WorthKvwwzyvDLBMWJJMUJ3543-36-48 12:20:00 Test Item Value Reference Range Interpretation Comments UA Ketones (test code = >=80 mg/dL A UA Ketones) *ABN*(09/01/2011 07:20:00) [facility] WorthGtqsfgrYFUPTUUSYS6074-73-98 12:20:00 Test Item Value Reference Range Interpretation Comments UA Protein (test code Negative (09/01/2011 N = UA Protein) 07:20:00) [facility] FallsHibhctmPDIKZLZVQG6288-27-58 12:20:00 Test Item Value Reference Range Interpretation Comments UA pH (test code = UA pH) 6.0 1 5.0-8.0 N [facility] FallsHstdwijSAVDEPHYSC3904-27-07 12:20:00 Test Item Value Reference Range Interpretation Comments UA Bili (test code = Negative (09/01/2011 N UA Bili) 07:20:00) [facility] FallsQmztydyDPYGJTWXQM8838-84-65 12:20:00 Test Item Value Reference Range Interpretation Comments UA Glucose (test code = >=1000 mg/dL A UA Glucose) *ABN*(09/01/2011 07:20:00) [facility] FallsNogjqutMPJFVLBXBF4438-44-25 12:20:00 Test Item Value Reference Range Interpretation Comments UA Spec Grav (test code = UA Spec 1.035 1 H Grav) [facility] FallsFqxmljmZXAIHXBTVR9650-31-62 12:20:00 Test Item Value Reference Range Interpretation Comments UA Turbidity (test code = Clear (09/01/2011 N UA Turbidity) 07:20:00) [facility] FallsCsrsfurCHJIWCMDFU0991-17-56 12:20:00 Test Item Value Reference Range Interpretation Comments UA Color (test code = Yellow *NA*(09/01/2011 UA Color) 07:20:00) [facility]FhsyvfxNGBBPVLAC4915-44-80 08:00:00 Test Item Value Reference Range Interpretation Comments Lactic Acid Lvl (test code = Lactic 2.8 0.5-2.2 H Acid Lvl) [facility] HospitalZvzmmezQHWLMWZAB5209-44-28 07:47:00 Test Item Value Reference Range Interpretation Comments Magnesium Lvl (test code = Magnesium 1.5 1.8-2.4 L Lvl) [facility]OvnhwniTPANQCUNVI2501-38-43 07:47:00 Test Item Value Reference Range Interpretation Comments Polychrom (test code = Slight (09/01/2011 N Polychrom) 02:47:00) [facility] HospitalKkjxfdcASZQHFUXRQ7786-69-51 07:47:00 Test Item Value Reference Range Interpretation Comments Anisocyte (test code = 1+ *ABN*(09/01/2011 A Anisocyte) 02:47:00) [facility] HospitalQgmsgdqDASJFIVVGA5965-18-27 07:47:00 Test Item Value Reference Range Interpretation Comments Large Plt (test code = Slight *ABN*(09/01/2011 A Large Plt) 02:47:00) [facility] HospitalQblgbqwCLXLHIJZPT6350-48-38 07:47:00 Test Item Value Reference Range Interpretation Comments Tear Cell (test code = Tear Cell) Occasional [facility] HospitalYrjzpkxLWXAFLCWHH3785-87-17 07:47:00 Test Item Value Reference Range Interpretation Comments Elliptocyte (test code = Slight A Elliptocyte) *ABN*(09/01/2011 02:47:00) [facility] GLUCOSE SJYASNG8173-78-22 17:02:00 Test Item Value Reference Range Interpretation Comments Comment1 (test code = Comment1) Notify RN/ [facility] GLUCOSE ILNOUIZ2522-69-57 17:02:00 Test Item Value Reference Range Interpretation Comments Gluc POC Lifscn (test code = Gluc POC 134 65-110 H Lifscn) [facility] GLUCOSE GGRXPEZ2104-88-32 13:45:00 Test Item Value Reference Range Interpretation Comments Gluc POC Lifscn (test code = Gluc POC 182 65-110 H Lifscn) [facility] GLUCOSE ZYSPBJU9496-13-56 13:45:00 Test Item Value Reference Range Interpretation Comments Comment1 (test code = Comment1) [facility] RN/ [facility] HospitalXjhimfuCUQZZJMBS7377-76-01 10:22:00 Test Item Value Reference Range Interpretation Comments Phosphorus (test code = Phosphorus) 3.0 2.5-4.5 N [facility] HospitalMykykjiAUMLSVQUL2312-15-81 10:22:00 Test Item Value Reference Range Interpretation Comments Magnesium Lvl (test code = Magnesium 1.8 1.8-2.4 N Lvl) [facility] HospitalPjbejuvQTPPQEZFB1768-00-57 10:22:00 Test Item Value Reference Range Interpretation Comments Chloride Lvl (test code = Chloride Lvl) 107 95-109 N [facility] HospitalYrvufwbXEZYOYKNN6737-29-90 10:22:00 Test Item Value Reference Range Interpretation Comments Potassium Lvl (test code = Potassium 3.0 3.5-5.1 A Lvl) [facility] HospitalDxlgkncKMCGLIADE5111-03-29 10:22:00 Test Item Value Reference Range Interpretation Comments Sodium Lvl (test code = Sodium Lvl) 141 135-145 N [facility] HospitalYybomqfVBVZAXCCP2090-45-11 10:22:00 Test Item Value Reference Range Interpretation Comments Creatinine Lvl (test code = Creatinine 0.6 0.5-1.4 N Lvl) [facility] HospitalRozyaqsZDVGHQUYH0296-33-97 10:22:00 Test Item Value Reference Range Interpretation Comments CO2 (test code = CO2) 23 24-32 L [facility] HospitalLkhqbufWIVSFJORS6647-98-91 10:22:00 Test Item Value Reference Range Interpretation Comments Calcium Lvl (test code = Calcium Lvl) 7.3 8.5-10.5 L [facility] HospitalZaieczrTCZXBARVE6697-10-15 10:22:00 Test Item Value Reference Range Interpretation Comments Glucose Lvl (test code = Glucose Lvl) 136 [facility] HospitalChrpgbiRXSDTINYL3833-76-38 10:22:00 Test Item Value Reference Range Interpretation Comments AGAP (test code = AGAP) 14.0 10.0-20.0 N [facility] HospitalEdprcmbVTHWOLWBY4893-89-35 10:22:00 Test Item Value Reference Range Interpretation Comments BUN (test code = BUN) 5 7-22 L [facility] HospitalNdtacsxDUKYYVIJLW9366-95-17 10:22:00 Test Item Value Reference Range Interpretation Comments Segs (test code = Segs) 69.6 45.0-75.0 N [facility] HospitalFbfabhyLGYOEDWSXV0288-01-62 10:22:00 Test Item Value Reference Range Interpretation Comments Lymphocytes (test code = Lymphocytes) 21.5 20.0-40.0 N [facility] HospitalBlawdirTVIRBIKVDC1621-88-26 10:22:00 Test Item Value Reference Range Interpretation Comments Monocytes (test code = Monocytes) 7.6 2.0-12.0 N [facility] HospitalUgojejkFNKALTGHZM1238-68-96 10:22:00 Test Item Value Reference Range Interpretation Comments Eosinophils (test code = 1.0 See_Comment N [A utomated message] The Eosinophils) system which ge nerated this result tra nsmitted reference range : <=4.0. The reference r leo was not used to int erpret this result as normal/abnormal . [facility] HospitalJqmnphoPWGKNLRIJO0669-32-11 10:22:00 Test Item Value Reference Range Interpretation Comments Basophils (test code = 0.3 See_Comment N [Aut omated message] The Basophils) system which ge nerated this result tra nsmitted reference range : <=1.0. The reference r leo was not used to int erpret this result as normal/abnormal . [facility] HospitalOftowevBQLTTVOZXN0714-40-19 10:22:00 Test Item Value Reference Range Interpretation Comments Segs-Bands # (test code = Segs-Bands #) 4.8 1.5-8.1 N [facility] HospitalHerkehjJLQYKDFLIC5336-56-52 10:22:00 Test Item Value Reference Range Interpretation Comments Eosinophils # (test code 0.1 See_Comment N [A utomated message] The = Eosinophils #) system whic h generated this result tra nsmitted reference range : <=0.5. The reference r leo was not used to int erpret this result as normal/abnormal . [facility] HospitalJszjafxZNKXVLLEHK9483-50-66 10:22:00 Test Item Value Reference Range Interpretation Comments Lymphocytes # (test code = Lymphocytes 1.5 1.0-5.5 N #) [facility] HospitalFypmqfuPLNBAZJSYL7811-51-32 10:22:00 Test Item Value Reference Range Interpretation Comments Monocytes # (test code 0.5 See_Comment N [Aut omated message] The = Monocytes #) system which generated this result tra nsmitted reference range : <=0.8. The reference r leo was not used to int erpret this result as normal/abnormal . [facility] HospitalSmkslacDSMCJWLRCR3344-52-27 10:22:00 Test Item Value Reference Range Interpretation Comments Basophils # (test code 0.0 See_Comment N [Aut omated message] The = Basophils #) system which generated this result tra nsmitted reference range : <=0.2. The reference r leo was not used to int erpret this result as normal/abnormal . [facility] HospitalDfsncikUBMCNIDXUF7933-13-45 10:22:00 Test Item Value Reference Range Interpretation Comments MPV (test code = MPV) 11.0 7.4-10.4 H [facility] HospitalXsvkqwkQQAGMKMCRV9307-64-29 10:22:00 Test Item Value Reference Range Interpretation Comments Platelet (test code = Platelet) 161 133-450 N [facility] HospitalFdvrdhzLVTPKVSQYI9100-25-29 10:22:00 Test Item Value Reference Range Interpretation Comments MCH (test code = MCH) 29.6 pg 27.0-31.0 N [facility] HospitalVcceetwMRFPACFOOH8905-74-60 10:22:00 Test Item Value Reference Range Interpretation Comments MCHC (test code = MCHC) 35.4 32.0-36.0 N [facility] HospitalKotldsdOQKTGQRHNR2508-09-99 10:22:00 Test Item Value Reference Range Interpretation Comments RDW (test code = RDW) 14.1 11.5-14.5 N [facility] HospitalCvomwhxXTBSZGUWCK8390-13-30 10:22:00 Test Item Value Reference Range Interpretation Comments WBC (test code = WBC) 6.8 3.7-10.4 N [facility] HospitalPvmscqwKPWIMAIQMQ6633-92-08 10:22:00 Test Item Value Reference Range Interpretation Comments MCV (test code = MCV) 83.5 81.0-99.0 N [facility] HospitalPgxtmomAVZLEOAULP9537-30-71 10:22:00 Test Item Value Reference Range Interpretation Comments RBC (test code = RBC) 4.44 4.20-5.40 N [facility] HospitalRydftjjCQAIBHOPTS5448-38-12 10:22:00 Test Item Value Reference Range Interpretation Comments Hgb (test code = Hgb) 13.1 12.0-16.0 N [facility] HospitalRqyteonMBNUNDKUNZ9979-00-65 10:22:00 Test Item Value Reference Range Interpretation Comments Hct (test code = Hct) 37.1 36.0-48.0 N [facility] GLUCOSE QBIWXRU9557-71-61 02:20:00 Test Item Value Reference Range Interpretation Comments Comment1 (test code = Comment1) Notify RN/MD [facility] GLUCOSE IZKZUSL1226-93-73 02:20:00 Test Item Value Reference Range Interpretation Comments Gluc POC Lifscn (test code = Gluc POC 332 65-110 H Lifscn) [facility] HospitalNedljkdTONOALGLX8859-86-93 09:47:00 Test Item Value Reference Range Interpretation Comments Phosphorus (test code = Phosphorus) 2.5 2.5-4.5 N [facility] HospitalWwizvttWXQEHXAZF9887-18-40 09:47:00 Test Item Value Reference Range Interpretation Comments Glucose Lvl (test code = Glucose Lvl) 201 [facility] HospitalCskcazaLXTUHLTNU5018-28-67 09:47:00 Test Item Value Reference Range Interpretation Comments BUN (test code = BUN) 7 7-22 N [facility] HospitalBbrnlclBRXDXQUJF5149-99-68 09:47:00 Test Item Value Reference Range Interpretation Comments CO2 (test code = CO2) 19 24-32 L [facility] HospitalZpbrdrmWFEJDZGHH8223-52-53 09:47:00 Test Item Value Reference Range Interpretation Comments Creatinine Lvl (test code = Creatinine 0.3 0.5-1.4 L Lvl) [facility] HospitalPmobmtyRRZZHXFZG1393-34-23 09:47:00 Test Item Value Reference Range Interpretation Comments Sodium Lvl (test code = Sodium Lvl) 137 135-145 N [facility] HospitalKwdqzfiGRIWSEBTF1464-20-74 09:47:00 Test Item Value Reference Range Interpretation Comments Chloride Lvl (test code = Chloride Lvl) 103 95-109 N [facility] HospitalFdvrnxoNWZWNXODW1678-81-34 09:47:00 Test Item Value Reference Range Interpretation Comments Potassium Lvl (test code = Potassium 3.6 3.5-5.1 N Lvl) [facility] HospitalKyqsyrqTSBJKSTPT3480-50-06 09:47:00 Test Item Value Reference Range Interpretation Comments Calcium Lvl (test code = Calcium Lvl) 7.9 8.5-10.5 L [facility] HospitalSgbtgteUDUWIIWSA5693-59-05 09:47:00 Test Item Value Reference Range Interpretation Comments AGAP (test code = AGAP) 18.6 10.0-20.0 N [facility] HospitalFyicvniXVGTRZXQP5491-99-80 09:47:00 Test Item Value Reference Range Interpretation Comments Magnesium Lvl (test code = Magnesium 1.6 1.8-2.4 L Lvl) [facility] HospitalLsbfuuwXOMIPDWRBC7437-37-51 09:47:00 Test Item Value Reference Range Interpretation Comments Basophils # (test code 0.0 See_Comment N [Aut omated message] The = Basophils #) system which generated this result tra nsmitted reference range : <=0.2. The reference r leo was not used to int erpret this result as normal/abnormal . [facility] HospitalBoyavorVWKWBWAKPK8502-90-99 09:47:00 Test Item Value Reference Range Interpretation Comments Eosinophils (test code = 0.4 See_Comment N [A utomated message] The Eosinophils) system which ge nerated this result tra nsmitted reference range : <=4.0. The reference r leo was not used to int erpret this result as normal/abnormal . [facility] HospitalFkrheepJCIDEKMCNS4442-73-41 09:47:00 Test Item Value Reference Range Interpretation Comments Basophils (test code = 0.5 See_Comment N [Aut omated message] The Basophils) system which ge nerated this result tra nsmitted reference range : <=1.0. The reference r leo was not used to int erpret this result as normal/abnormal . [facility] HospitalSovdxvvNYSGHDQBDR8666-00-81 09:47:00 Test Item Value Reference Range Interpretation Comments Segs-Bands # (test code = Segs-Bands #) 5.9 1.5-8.1 N [facility] HospitalCzwzjbaPDOBTSTSFW3450-89-14 09:47:00 Test Item Value Reference Range Interpretation Comments Lymphocytes # (test code = Lymphocytes 1.2 1.0-5.5 N #) [facility] HospitalOhwmyazUPEGZTNRYK1284-18-36 09:47:00 Test Item Value Reference Range Interpretation Comments Monocytes # (test code 0.5 See_Comment N [Aut omated message] The = Monocytes #) system which generated this result tra nsmitted reference range : <=0.8. The reference r leo was not used to int erpret this result as normal/abnormal . [facility] HospitalCxazunaROOITOKUWE8822-07-71 09:47:00 Test Item Value Reference Range Interpretation Comments Eosinophils # (test code 0.0 See_Comment N [A utomated message] The = Eosinophils #) system whic h generated this result tra nsmitted reference range : <=0.5. The reference r leo was not used to int erpret this result as normal/abnormal . [facility] HospitalDgaqbumOVJYNQSNDR3553-49-75 09:47:00 Test Item Value Reference Range Interpretation Comments Segs (test code = Segs) 76.9 45.0-75.0 H [facility] HospitalYahfiylPCLRPMGWEL6523-23-52 09:47:00 Test Item Value Reference Range Interpretation Comments Lymphocytes (test code = Lymphocytes) 15.9 20.0-40.0 L [facility] HospitalNvruiysRLMSERAAIF9056-01-54 09:47:00 Test Item Value Reference Range Interpretation Comments Monocytes (test code = Monocytes) 6.3 2.0-12.0 N [facility] HospitalSbuiiolHYBOXIIRRI1243-31-41 09:47:00 Test Item Value Reference Range Interpretation Comments MCV (test code = MCV) 82.8 81.0-99.0 N [facility] HospitalCmikuklMFHSAOJEQJ2490-01-48 09:47:00 Test Item Value Reference Range Interpretation Comments Hct (test code = Hct) 39.7 36.0-48.0 N [facility] HospitalPrkefrkYPJNOZLRTU0417-11-41 09:47:00 Test Item Value Reference Range Interpretation Comments MCH (test code = MCH) 29.1 pg 27.0-31.0 N [facility] HospitalImshqlrWMJQFCFERD7858-02-23 09:47:00 Test Item Value Reference Range Interpretation Comments Hgb (test code = Hgb) 14.0 12.0-16.0 N [facility] HospitalHtjunvnLKOLKZOKCI7603-48-22 09:47:00 Test Item Value Reference Range Interpretation Comments MCHC (test code = MCHC) 35.2 32.0-36.0 N [facility] HospitalFmkvdanPZYHPYVRVW6331-20-15 09:47:00 Test Item Value Reference Range Interpretation Comments RDW (test code = RDW) 13.9 11.5-14.5 N [facility] HospitalIyavxwkKVJELOHAKC3590-06-84 09:47:00 Test Item Value Reference Range Interpretation Comments Platelet (test code = Platelet) 160 133-450 N [facility] HospitalKbrfykoYYNSAKPETK7864-93-67 09:47:00 Test Item Value Reference Range Interpretation Comments MPV (test code = MPV) 11.9 7.4-10.4 H [facility] HospitalNokkwroMIWJJNPFLC8927-62-15 09:47:00 Test Item Value Reference Range Interpretation Comments WBC (test code = WBC) 7.7 3.7-10.4 N [facility] HospitalOqrlrdlZGWXZUENUW5912-71-51 09:47:00 Test Item Value Reference Range Interpretation Comments RBC (test code = RBC) 4.80 4.20-5.40 N [facility] HospitalNunbdqoLYMELATYE7892-94-60 10:28:00 Test Item Value Reference Range Interpretation Comments Phosphorus (test code = Phosphorus) 2.6 2.5-4.5 N [facility] HospitalWkoywaqZKFKKJKNT6974-42-40 10:28:00 Test Item Value Reference Range Interpretation Comments Magnesium Lvl (test code = Magnesium 1.8 1.8-2.4 N Lvl) [facility] HospitalMguektsZLUSCPORK4811-45-06 10:28:00 Test Item Value Reference Range Interpretation Comments Potassium Lvl (test code = Potassium 3.7 3.5-5.1 N Lvl) [facility] HospitalGpectwmIPMGTKYWA9064-85-72 10:28:00 Test Item Value Reference Range Interpretation Comments Sodium Lvl (test code = Sodium Lvl) 137 135-145 N [facility] HospitalMocngivIFTXNWVYI2989-27-78 10:28:00 Test Item Value Reference Range Interpretation Comments Creatinine Lvl (test code = Creatinine 0.6 0.5-1.4 N Lvl) [facility] HospitalKrklmybFPWRKPICG7041-07-97 10:28:00 Test Item Value Reference Range Interpretation Comments BUN (test code = BUN) 16 7-22 N [facility] HospitalSpyuhdvHZKVECWHV0057-59-59 10:28:00 Test Item Value Reference Range Interpretation Comments Glucose Lvl (test code = Glucose Lvl) 200 [facility] HospitalNdvspqaJFQCAHDZM1095-13-07 10:28:00 Test Item Value Reference Range Interpretation Comments Calcium Lvl (test code = Calcium Lvl) 8.3 8.5-10.5 L [facility] HospitalDmtofenCGLEFJAUC0161-62-64 10:28:00 Test Item Value Reference Range Interpretation Comments AGAP (test code = AGAP) 19.7 10.0-20.0 N [facility] HospitalMfpggytRCYGLGRVQ9465-00-87 10:28:00 Test Item Value Reference Range Interpretation Comments Chloride Lvl (test code = Chloride Lvl) 99 95-109 N [facility] HospitalJsoevmcNDNOFURAU5820-90-27 10:28:00 Test Item Value Reference Range Interpretation Comments CO2 (test code = CO2) 22 24-32 L [facility] HospitalDlzwvtmSNXMLLGRZN4123-96-67 10:28:00 Test Item Value Reference Range Interpretation Comments Platelet (test code = Platelet) 172 133-450 N [facility] HospitalBlwotckNKJKETVQRP7807-45-56 10:28:00 Test Item Value Reference Range Interpretation Comments MPV (test code = MPV) 12.0 7.4-10.4 H [facility] HospitalIxmhitdZOFUSNDCWL2681-53-95 10:28:00 Test Item Value Reference Range Interpretation Comments WBC (test code = WBC) 7.3 3.7-10.4 N [facility] HospitalDvezhjdJGISAHVMRF9251-05-25 10:28:00 Test Item Value Reference Range Interpretation Comments RDW (test code = RDW) 14.6 11.5-14.5 H [facility] HospitalMknbnwqVVHOCNHJZX9512-29-49 10:28:00 Test Item Value Reference Range Interpretation Comments MCHC (test code = MCHC) 35.0 32.0-36.0 N [facility] HospitalNcjtpheRQAVDYZIXW7073-42-03 10:28:00 Test Item Value Reference Range Interpretation Comments RBC (test code = RBC) 4.54 4.20-5.40 N [facility] HospitalJvjcxtyAJUWMMFPFP7938-23-79 10:28:00 Test Item Value Reference Range Interpretation Comments Hct (test code = Hct) 37.6 36.0-48.0 N [facility] HospitalSxrdngkEPLVYAONYT7579-56-99 10:28:00 Test Item Value Reference Range Interpretation Comments MCV (test code = MCV) 82.9 81.0-99.0 N [facility] HospitalPupvzdtIZEGTSEPEO0694-75-71 10:28:00 Test Item Value Reference Range Interpretation Comments MCH (test code = MCH) 29.0 pg 27.0-31.0 N [facility] HospitalMzwzeqrBODUICCNVJ5802-16-15 10:28:00 Test Item Value Reference Range Interpretation Comments Hgb (test code = Hgb) 13.2 12.0-16.0 N [facility] HospitalIdhtfyuCLOTARHMYW8372-09-80 10:28:00 Test Item Value Reference Range Interpretation Comments Elliptocyte (test code = Slight A Elliptocyte) *ABN*(08/21/2011 04:28:00) [facility] HospitalQeulzxoVHKGNSRUEF0443-78-56 10:28:00 Test Item Value Reference Range Interpretation Comments Polychrom (test code = Slight (08/21/2011 N Polychrom) 04:28:00) [facility] HospitalErzcrneNCZSSZXFUT8868-60-20 10:28:00 Test Item Value Reference Range Interpretation Comments Basophils # (test code 0.0 See_Comment N [Aut omated message] The = Basophils #) system which generated this result tra nsmitted reference range : <=0.2. The reference r leo was not used to int erpret this result as normal/abnormal . [facility] HospitalNgdzhuzSBMGEUBCTT1746-97-04 10:28:00 Test Item Value Reference Range Interpretation Comments Hypochrom (test code = Slight (08/21/2011 N Hypochrom) 04:28:00) [facility] HospitalZpqxxauLGXGPPYLDW8686-35-55 10:28:00 Test Item Value Reference Range Interpretation Comments Monocytes # (test code 0.6 See_Comment N [Aut omated message] The = Monocytes #) system which generated this result tra nsmitted reference range : <=0.8. The reference r leo was not used to int erpret this result as normal/abnormal . [facility] HospitalLpabupqDJCJZWLNZS2293-95-56 10:28:00 Test Item Value Reference Range Interpretation Comments Eosinophils # (test code 0.0 See_Comment N [A utomated message] The = Eosinophils #) system whic h generated this result tra nsmitted reference range : <=0.5. The reference r leo was not used to int erpret this result as normal/abnormal . [facility] HospitalKdgqzrbGZTALSZBSO8419-73-67 10:28:00 Test Item Value Reference Range Interpretation Comments Segs-Bands # (test code = Segs-Bands #) 5.3 1.5-8.1 N [facility] HospitalNzlwkkkDBPTUNDGMB1968-70-36 10:28:00 Test Item Value Reference Range Interpretation Comments Lymphocytes # (test code = Lymphocytes 1.3 1.0-5.5 N #) [facility] HospitalEtflchrZXIYXEPPCQ6814-00-17 10:28:00 Test Item Value Reference Range Interpretation Comments Basophils (test code = 0.5 See_Comment N [Aut omated message] The Basophils) system which ge nerated this result tra nsmitted reference range : <=1.0. The reference r leo was not used to int erpret this result as normal/abnormal . [facility] HospitalRkrfgfvYKSTRPGYUU3007-34-44 10:28:00 Test Item Value Reference Range Interpretation Comments Monocytes (test code = Monocytes) 8.5 2.0-12.0 N [facility] HospitalZgpaliiIHIUNZXTJP7956-80-10 10:28:00 Test Item Value Reference Range Interpretation Comments Eosinophils (test code = 0.3 See_Comment N [A utomated message] The Eosinophils) system which ge nerated this result tra nsmitted reference range : <=4.0. The reference r leo was not used to int erpret this result as normal/abnormal . [facility] HospitalSmsuxjbPQRZIHSKFS3099-21-02 10:28:00 Test Item Value Reference Range Interpretation Comments Lymphocytes (test code = Lymphocytes) 17.3 20.0-40.0 L [facility] HospitalTcjpfyiJOPBYBDBTR6614-39-10 10:28:00 Test Item Value Reference Range Interpretation Comments Segs (test code = Segs) 73.4 45.0-75.0 N [facility] GLUCOSE RLWUWYN7160-69-69 07:47:00 Test Item Value Reference Range Interpretation Comments Comment2 (test code = Comment2) [facility] w/[facility]XgywsmjKALLUGHHR5190-76-08 21:58:00 Test Item Value Reference Range Interpretation Comments S Preg (test code = S Negative (08/19/2011 N Preg) 15:58:00) [facility] HospitalQvrouggUXKLBQAIS6300-49-19 21:58:00 Test Item Value Reference Range Interpretation Comments Lipase Lvl (test code = Lipase Lvl) 169 73-393 N [facility] HospitalUkgyyhgMQXZIZSPO1597-20-75 21:58:00 Test Item Value Reference Range Interpretation Comments ALT (test code = ALT) 54 See_Comment N [Auto mated message] The system which ge nerated this result transmit rohit reference range : <=65. The reference range was not used to interpr et this result as reji l/abnormal. [facility] HospitalGnwxscmMVLTYUFOP9489-69-71 21:58:00 Test Item Value Reference Range Interpretation Comments Alk Phos (test code = Alk Phos) 110 39-136 N [facility] HospitalHdnhxoaQBTKXJBUD4256-81-94 21:58:00 Test Item Value Reference Range Interpretation Comments Bili Direct (test code 0.1 See_Comment N [Aut omated message] The = Bili Direct) system which generated this result tra nsmitted reference range : <=0.3. The reference r leo was not used to int erpret this result as reji l/abnormal. [facility] HospitalNhrkmtcSTNQMHEZZ6827-02-39 21:58:00 Test Item Value Reference Range Interpretation Comments Bili Total (test code = Bili Total) 0.9 0.2-1.3 N [facility] HospitalZdvaqfrKUYWZOBHE6526-98-69 21:58:00 Test Item Value Reference Range Interpretation Comments Albumin Lvl (test code = Albumin Lvl) 4.4 3.5-5.0 N [facility] HospitalQzmzviqERJUDGNZV2133-24-67 21:58:00 Test Item Value Reference Range Interpretation Comments Total Protein (test code = Total 8.8 6.4-8.4 H Protein) [facility] HospitalTpjfokzITYNKPTQP3383-05-00 21:58:00 Test Item Value Reference Range Interpretation Comments Bili Indirect (test 0.8 See_Comment N [Automa rohit message] The code = Bili Indirect) system which generated this result tra nsmitted reference range : <=1.0. The reference r leo was not used to int erpret this result as normal/abnormal . [facility] HospitalTmfabikMWEPQZWNG5633-02-68 21:58:00 Test Item Value Reference Range Interpretation Comments AST (test code = AST) 36 See_Comment N [Auto mated message] The system which ge nerated this result transmit rohit reference range : <=37. The reference range was not used to interpr et this result as reji l/abnormal. [facility] HospitalRbbduxmLZQRCZDVF1352-76-05 21:58:00 Test Item Value Reference Range Interpretation Comments Globulin (test code = Globulin) 4.4 2.0-4.0 H [facility]enJuuzkcxRTYAKSWCS4151-47-62 21:58:00 Test Item Value Reference Range Interpretation Comments A/G Ratio (test code = A/G Ratio) 1.0 0.7-1.6 N [facility] FallsVhazjnnREHEUIKHNU8626-56-74 21:58:00 Test Item Value Reference Range Interpretation Comments UA Bacteria (test code Occasional /HPF N = UA Bacteria) (08/19/2011 15:58:00) [facility] FallsQoslkimWQMRWPTBYX0273-64-01 21:58:00 Test Item Value Reference Range Interpretation Comments UA RBC (test 3-5 /HPF See_Comment A [Automated mes pastor] code = UA RBC) *ABN*(08/19/2011 The syste m which 15:58:00) generated this result transmitted ref erence range: <=2. The reference range was not used to int erpret this result as normal/abnormal . [facility] FallsFkjlizmFGHNCYPLVN0476-95-95 21:58:00 Test Item Value Reference Range Interpretation Comments UA WBC (test code = 3 See_Comment [Automa rohit message] The UA WBC) system which ge nerated this result transmit rohit reference range : <=5. The reference range was not used to interpr et this result as reji l/abnormal. [facility]XvdmzteSGZFEGUVKQ4045-97-61 21:58:00 Test Item Value Reference Range Interpretation Comments UA Mucus (test code = Few /LPF (08/19/2011 N UA Mucus) 15:58:00) [facility] FallsLiqzlmsPHYIOTDDJZ5676-12-49 21:58:00 Test Item Value Reference Range Interpretation Comments UA Amorph Destiny (test Occasional /HPF A code = UA Amorph *ABN*(08/19/2011 Destiny) 15:58:00) [facility] WorthPmiwjdkDDBGZZQJRU4938-04-77 21:58:00 Test Item Value Reference Range Interpretation Comments UA Urobilinogen (test code = UA 0.2 0.1-1.0 N Urobilinogen) [facility] WorthZxibfpiIZGQRQPQUM5947-46-42 21:58:00 Test Item Value Reference Range Interpretation Comments UA Sq Epi (test code = Rare /LPF (08/19/2011 N UA Sq Epi) 15:58:00) [facility] WorthKqyqxrgIHPNZJAORA5027-51-54 21:58:00 Test Item Value Reference Range Interpretation Comments Micro? (test code = Performed (08/19/2011 N Micro?) 15:58:00) [facility] FallsHmmticmBAPOWOVBTB6298-45-13 21:58:00 Test Item Value Reference Range Interpretation Comments UA Leuk Est (test Negative (08/19/2011 N code = UA Leuk Est) 15:58:00) [facility] FallsSpmwonxWSZFSGCDHW4749-95-56 21:58:00 Test Item Value Reference Range Interpretation Comments UA Nitrite (test code Negative (08/19/2011 N = UA Nitrite) 15:58:00) [facility] FallsArwjxitDBMDDSNUTK7385-67-07 21:58:00 Test Item Value Reference Range Interpretation Comments UA pH (test code = UA pH) 5.5 1 5.0-8.0 N [facility] FallsSebezicFPXAHUMTZX4977-21-13 21:58:00 Test Item Value Reference Range Interpretation Comments UA Blood (test code = Trace *ABN*(08/19/2011 A UA Blood) 15:58:00) [facility] FallsJiiwjcnCKDAJOPSQJ5099-09-36 21:58:00 Test Item Value Reference Range Interpretation Comments UA Bili (test code = Negative (08/19/2011 N UA Bili) 15:58:00) [facility] FallsLuobvaqZAYOUNEXTK9240-15-24 21:58:00 Test Item Value Reference Range Interpretation Comments UA Ketones (test code = 80 mg/dL A UA Ketones) *ABN*(08/19/2011 15:58:00) [facility] FallsAcugmvxRRFAGDQPNM3926-21-04 21:58:00 Test Item Value Reference Range Interpretation Comments UA Glucose (test code = >=1000 mg/dL A UA Glucose) *ABN*(08/19/2011 15:58:00) [facility] FallsStdwvcyNUOXFMMCGG1548-34-72 21:58:00 Test Item Value Reference Range Interpretation Comments UA Protein (test code Negative (08/19/2011 N = UA Protein) 15:58:00) [facility] FallsWvgfscdKAEHHGCHZN2755-66-04 21:58:00 Test Item Value Reference Range Interpretation Comments UA Turbidity (test code Slight Cloudy N = UA Turbidity) (08/19/2011 15:58:00) [facility] FallsChxtebaCMSHWWETMR2169-61-25 21:58:00 Test Item Value Reference Range Interpretation Comments UA Spec Grav (test code = UA Spec 1.025 1 Grav) [facility] FallsKgubfvfLGCMQHTIBD4583-91-97 21:58:00 Test Item Value Reference Range Interpretation Comments UA Color (test code = Yellow (08/19/2011 N UA Color) 15:58:00) [facility] HospitalHnplmteMDXIXEMTQ1224-74-67 21:13:00 Test Item Value Reference Range Interpretation Comments AST (test code = AST) 23 See_Comment N [Auto mated message] The system which ge nerated this result transmit rohit reference range : <=37. The reference range was not used to interpr et this result as reji l/abnormal. [facility] HospitalBorcztkAUWLWNOYA6562-46-14 21:13:00 Test Item Value Reference Range Interpretation Comments Bili Total (test code = Bili Total) 1.0 0.2-1.3 N [facility] HospitalTndllfwKMPAVBQPE4318-36-79 21:13:00 Test Item Value Reference Range Interpretation Comments Alk Phos (test code = Alk Phos) 115 39-136 N [facility] HospitalAbzcknpZWQJGUDIY7254-51-96 21:13:00 Test Item Value Reference Range Interpretation Comments ALT (test code = ALT) 56 See_Comment N [Auto mated message] The system which ge nerated this result transmit rohit reference range : <=65. The reference range was not used to interpr et this result as reji l/abnormal. [facility] HospitalBogxfwmQRLCNDVGC5695-39-09 21:13:00 Test Item Value Reference Range Interpretation Comments Total Protein (test code = Total 9.0 6.4-8.4 H Protein) [facility] HospitalVrztjwjNXHITVJNY9509-52-76 21:13:00 Test Item Value Reference Range Interpretation Comments Albumin Lvl (test code = Albumin Lvl) 4.8 3.5-5.0 N [facility] HospitalNwxebgwIPINHERFR7829-19-55 21:13:00 Test Item Value Reference Range Interpretation Comments Globulin (test code = Globulin) 4.2 2.0-4.0 H [facility] HospitalLakpibaRFDPCCHCM0678-88-14 21:13:00 Test Item Value Reference Range Interpretation Comments A/G Ratio (test code = A/G Ratio) 1.1 0.7-1.6 N [facility] HospitalRpgjsjxXQECBDCEL3465-99-76 21:13:00 Test Item Value Reference Range Interpretation Comments B/C Ratio (test code = B/C Ratio) 30 6-25 H [facility] HospitalAssjjbwWFAVDQPPJS8601-16-57 21:13:00 Test Item Value Reference Range Interpretation Comments RBC Morph (test code = Normal (08/19/2011 N RBC Morph) 15:13:00) [facility] HospitalCjdtrauHLXRGBUPEQ3036-45-41 21:13:00 Test Item Value Reference Range Interpretation Comments Large Plt (test code = Slight *ABN*(08/19/2011 A Large Plt) 15:13:00) [facility] HospitalCvmrplfQSZRJQVWWT7982-01-62 21:13:00 Test Item Value Reference Range Interpretation Comments Atypical Lymphs (test code = Atypical 0.0 N Lymphs) [facility] HospitalOrpdeskGCVLVRKPSN4784-41-85 21:13:00 Test Item Value Reference Range Interpretation Comments Bands (test code = 0.0 See_Comment N [Automat ed message] The Bands) system which ge nerated this result transmit rohit reference range : <=11.0. The reference r leo was not used to interpr et this result as reji l/abnormal. [facility] HospitalVaeayzhXIBKYBBTA2042-86-33 21:10:00 Test Item Value Reference Range Interpretation Comments O2 Sat Roberth (test code = O2 Sat Roberth) 74.0 40.0-70.0 H [facility] HospitalKjthsbcJNMEPMVCO3999-87-99 21:10:00 Test Item Value Reference Range Interpretation Comments Temp Roberth (test code = Temp Roberth) 37.0 [facility] HospitalHwojhymNRIFNJGJE1348-38-18 21:10:00 Test Item Value Reference Range Interpretation Comments pO2 Roberth (test code = pO2 Roberth) 42 20-49 N [facility] HospitalAssmdzvXBVIZCXAX1071-71-41 21:10:00 Test Item Value Reference Range Interpretation Comments HCO3 Roberth (test code = HCO3 Roberth) 17.3 22.0-26.0 L [facility] HospitalJoasospUVPCVWFWE4527-91-24 21:10:00 Test Item Value Reference Range Interpretation Comments pH Roberth (test code = pH Roberth) 7.34 7.28-7.42 N [facility] HospitalOdvtzkwSHWCFBCGB8730-36-76 21:10:00 Test Item Value Reference Range Interpretation Comments pCO2 Rboerth (test code = pCO2 Roberth) 32 38-52 L [facility] McallenQqqizhlRZPEVTCOS1779-04-47 21:10:00 Test Item Value Reference Range Interpretation Comments BE Roberth (test code = -7 See_Comment L [Automa rohit message] The BE Roberth) system which ge nerated this result transmit rohit reference range : <=2. The reference range was not used to interpr et this result as reji l/abnormal. [facility] FallsYgvvwdxJVYLFIHLIW7451-81-84 20:34:00 Test Item Value Reference Range Interpretation Comments CDC-HIV 1/2 Ab (test Negative *NA*(08/19/2011 code = CDC-HIV 1/2 14:34:00) Ab) [facility]
[2021-10-16] MEDS ORDERED: ONDANSETRON 4 MG (ODT) TAB ONE (22:58)
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
[2021-10-17] MEDS ORDERED: HYDROCODONE/APAP 10/325 TAB ONE (00:27)
[2021-10-17 02:48] VITALS: TEMP 98.2
[2021-10-17 02:49] VITALS: O2SAT 99
[2021-10-17 02:51] VITALS: BP 179/104
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
== END 2021-10-17 00:33 | disposition home or self-care (01) ==
LOC: ER 21:11
DX: G89.11 Acute pain due to trauma (principal); V49.40XA Driver injured in collision with unspecified motor vehicles in traffic accident, initial encounter; E11.22 Type 2 diabetes mellitus with diabetic chronic kidney disease; I13.2 Hypertensive heart and chronic kidney disease with heart failure and with stage 5 chronic kidney disease, or end stage renal disease; N18.6 End stage renal disease; I50.9 Heart failure, unspecified; Z99.2 Dependence on renal dialysis; Z88.0 Allergy status to penicillin; Z88.5 Allergy status to narcotic agent; Z88.6 Allergy status to analgesic agent; Z88.8 Allergy status to other drugs, medicaments and biological substances
CPT/HCPCS: 70450; 71250; 72125; 99283

== ENCOUNTER 2021-12-05 08:55 | Emergency (ER) | payer OTHER ==
[2021-12-05] MEDS ORDERED: ETOMIDATE 20 MG/10 ML VIAL IV ONE (08:56)
[2021-12-05] MEDS ORDERED: EPINEPHrine 1 MG/10 ML SYR IV ONE (08:56)
[2021-12-05] MEDS ORDERED: ROCURONIUM 50 MG/5 ML VIAL IV ONE ×2 (08:56→16:16)
--- OUTSIDE RECORDS SUMMARY | 2021-12-05 09:20 | XMS REPORT | Continuity of Care Document ---
:1980 Author Organization [facility] t Address [address] [place] [address] Care Team Providers Name Role Phone SHARPLESS Primary Care Physician Unavailable Guillaume_Dinah Attending Clinician Unavailable Seth MAYS, Kasey Attending Clinician Anthony Attending Clinician Unavailable Pat BURNS, Cathie Attending Clinician Damion Brasher MD Attending Clinician Ramírez Nagel MD Attending Clinician Kalen Shahid Attending Clinician Endy BURNS Attending Clinician Laquita Dodd Attending Clinician Joe BURNS, ManuelHsi Attending Clinician Jose Carlos BURNS V. Attending Clinician Kenyatta BURNS Attending Clinician Maqruita Roach MD Attending Clinician Robert MAYS Attending Clinician Unavailable Jovanni Chowdhury MD Attending Clinician ParaEduin olivares Attending Clinician MD DAMION BRASHER Attending Clinician Unavailable MD KALEN SHAHID Attending Clinician Unavailable Adelita SAPP Attending Clinician Unavailable BobbyR Attending Clinician Unavailable Tam MAYS Attending Clinician Unavailable Ramana SAPP Attending Clinician Unavailable Sheikh KATY Attending Clinician Arvin Koch MD Attending Clinician Kendall Medina MD Attending Clinician Brisa JARRETT Attending Clinician MD KENYATTA Attending Clinician Unavailable Corin MAYS Attending Clinician Unavailable Doctor Unassigned, Name Attending Clinician Unavailable AYDEE Attending Clinician Unavailable Benedicto BURNS Attending Clinician SHERRILL PHILIPPE Attending Clinician Unavailable Lamin BURNS, K.H. Attending Clinician Carlos BURNS Attending Clinician Manuel Sanchez DO Attending Clinician Black BLANCHARD, A Attending Clinician LAMIN, K.H. Attending Clinician Unavailable Chivo Attending Clinician Unavailable Chivo Attending Clinician Unavailable WESTON DORADO Attending Clinician Unavailable HAWA BHAKTA Attending Clinician Unavailable Deshazo_T Admitting Clinician Unavailable ANSHU Admitting Clinician Unavailable MD DAMION BRASHER Admitting Clinician Unavailable Ba Admitting Clinician Unavailable Admitting Clinician Unavailable MD KENYATTA Admitting Clinician Unavailable SHERRILL PHILIPPE Admitting Clinician Unavailable Chivo Admitting Clinician Unavailable HAWA BHAKTA Admitting Clinician Unavailable Payers Payer Name Policy Type Policy Number Effective Date Expiration Date S ource MEDICARE PART A AND [id number] 2014 B 00:00:00 [facility] [id number] 2021 (MEDICARE 00:00:00 REPLACEMENT HMO) MEDICARE A B [id number] 2014 00:00:00 MEDICAID [facility] [id number] 2016 00:00:00 Problems Condition Condition Condition Status Onset Resolution Last Treating Co mments Source Name Details Category Date Date Treatment Clinician Date AVF AVF Disease Active Univers (arteriove (arteriove 9-29 it y of nous nous 00:00: [place] fistula) fistula) 00 Medica l Branch End stage End stage Disease Active [facility] renal renal 7-16 Health failure on failure on 00:00: dialysis dialysis 00 Diabetes Diabetes Disease Active [facility] mellitus mellitus 7-16 Health with with 00:00: gastropare gastropare 00 sis sis Essential Essential Disease Active [facility] hypertensi hypertensi 7-16 He alth on on 00:00: 00 Irritable Irritable Disease Active [facility] bowel bowel 16 Health syndrome syndrome 00:00: (IBS) (IBS) 00 GASTROPARE Diagnosis Active 2021-02-10 Memoria HELENA/IBS-D 7-16 21:41:00 l /ANEMIA 00:00: [place] GASTROPARE 00 HELENA/IBS-D /ANEMIA Active 01/03/2021 [facility] NEW Diagnosis Active 2020-12-24 Mem oria PATIENT GI 4-26 10:39:00 l CONSULT NEW 00:00: [place] REFRACTORY PATIENT GI 00 GASTRO CONSULT REFRACTORY GASTRO Active 10/14/2020 [facility] Malfunctio Malfunctio Disease Active Overview : Univers n of n of 6-03 Formattin ity of arterioven arterioven 00:00: g of this [place] ous ous 00 note Medical dialysis dialysis might be Bran ch fistula, fistula, different initial initial from the encounter encounter original. Added automatic ally from request for surgery [id number] Candidiasi Candidiasi Disease Active U nivers s of vulva s of vulva 2-18 it y of and vagina [place] Screening Screening Disease Active Uni vers for breast for breast 2-18 it y of cancer cancer 00:00: [place] 00 Medical Branch NEW Diagnosis Active 2018-07-26 Mem oria EVALUATION 07-12 09:39:00 l NEW 00:00: [place] EVALUATION 00 Active 07/12/2018 [facility] Pyogenic Pyogenic Disease Active 2017-06 Overview: Un lori granuloma granuloma 0-17 Formattin i ty of of of 00:00: g of this [place] conjunctiv conjunctiv 00 note Me dical a, right a, right might be Bran ch different from the original. Added automatic ally from request for surgery [id number] Right eye Right eye Disease Active Overview: Univers affected affected 02-22 Formattin ity of by by 00:00: g of this [place] proliferat proliferat 00 note Me dical montse montse might be Branch diabetic diabetic different retinopath retinopath from the y with y with original. traction traction Added retinal retinal automatic detachment detachment ally from not not request involving involving for macula, macula, surgery associated associated [id number] with type with type 1 diabetes 1 [...] Added automatic ally from request for surgery [id number] ESRD (end ESRD (end Disease Active Overview: Univers stage stage 6-12 Formattin ity of renal renal 00:00: g of this [place] disease) disease) 00 note Medica l on on might be Branch dialysis dialysis different from the original. Added automatic ally from request for surgery [id number] Diabetes Diabetes Disease Active Metho di mellitus [...] Added automatic ally from request for surgery [id number] Neovascula Neovascula Disease Active U nivers r r 1-18 ity of glaucoma, glaucoma, 00:[place] left [place] left eye [place] Medica l Branch Increased Increased Disease Active Uni vers intraocula intraocula 1-18 it y of r pressure r pressure 00:[place] [facility] [place] Fall Fall Disease Active 2016-06 Univers 0-13 ity of 00:00: [place] [address] Medical Branch Pneumonia Pneumonia Disease Active 2016-06 Uni vers 0-11 ity of 00:00: [place] [address] Medical Branch Diabetes Diabetes Disease Active 2016-06 Overview: Un lori mellitus mellitus 0-05 Formattin ity of 00:00: g of this [place] note Medical might be Branch different from the original. Added automatic ally from request for surgery [id number] Pseudotumo Pseudotumo Disease Active U nivers r cerebri r cerebri 9-25 ity of 00:00: [address] Branch Liver Liver Disease Active [facility] failure[facility] failure, 7[facility]16 [facility] acute acute 00:[facility] Medical 00 Center SANJUANA (acute SANJUANA (acute Disease Active [facility] kidney kidney 7-16 [facility] injury) injury) 00:00: [place] [id number] Center CKD CKD Disease Active [facility] (chronic (chronic 7-16 [facility] kidney kidney 00:00: Medical disease) disease) 00 Center Acute Acute Disease Active [facility] encephalop encephalop 7-16 Keny[facility] kes athy athy 00:00: Medical 00 Center Ulcer of Ulcer of Disease [facility] toe of toe of 7[facility]16 [facility] left foot left foot 00:00: Medi tawn[place] 00 Center Hyperglyce Hyperglyce Disease Active [facility] 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 7-16 Keny[place] kes type 2 type 2 00:00: Medical diabetes diabetes 00 Center mellitus mellitus Gastropare Gastropare Disease Active [facility] sis due to sis due to 7-16 [place] kes DM DM 00:00: Medical 00 Center Cyclic Cyclic Disease Active [facility] vomiting vomiting 7-16 [facility] syndrome syndrome 00:00: Medica l 00 Center Anxiety Anxiety Disease Active [facility] 7[facility]16 [facility] 00[facility] Bipolar Bipolar Disease Active [facility] disorder disorder 16 [facility] 00[facility] Hypertensi Hypertensi Disease Active [facility] ve ve 716 [facility] emergency emergency 00:00: Medi ta[place] 00 Center Peripheral Peripheral Disease Active U viviana neuropathy neuropathy 16 it y of 00:00: [place] [address] Medical Branch ACUTE RESP Diagnosis Active 2016-09-09 [...] 00 SOB/SWELLI Diagnosis Active 2015-062016-06-10 Memoria NG 2- 15:48:00 l 00:00: [place] SOB/SWELLI [address] [facility] CHF/RENAL Diagnosis Active 2015-062016-06-24 Memoria DISEASE 2- 15:35:00 l 00:00: [place] CHF/RENAL 00 DISEASE Active 06/10/2016 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 Hyperglyce Hyperglyce Disease Active 2015-06 U viviana maryam maryam 0-11 ity of 00:00: [address] Branch Diabetic Diabetic Disease Active Unive rs ulcer of ulcer of 5-07 ity of both feet both [place] 00:[place] associated associated 00 Me dical with type with type Bran ch 2 diabetes 2 diabetes mellitus mellitus SANJUANA (acute SANJUANA (acute Disease Active U nivers kidney kidney 5-07 ity of injury) injury) 00:00: [place] 00 Medical Branch Depression Depression Disease Active U jessicaers 5-07 ity of 00:00: [place] 00 Medical Branch Bipolar 1 Bipolar 1 Disease Active Uni vers disorder disorder 5-07 ity of 00:00: [place] [facility] Suicidal Suicidal Disease Active Unive rs ideation ideation 5-05 ity of 00:00: [place] Medical [facility] 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, 1.5, 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 00 Medical Branch Hematuria, Hematuria, Disease Active U viviana undiagnose undiagnose 2-16 it y of d cause d cause 00:00: [place] [facility] Cystitis Cystitis Disease Active 2014-06 [...] 00:00: [place] cancer in cancer in 00 [facility] female female Branch Family Family Disease Active 2014-06 Univers history of history of 1-13 it y of ovarian ovarian 00:00: [place] cancer cancer 00 Medical Branch Galactorrh Galactorrh Disease Active 2014-06 U viviana ea ea 1-13 ity of 00:00: [place] 00 Medical Branch History of History of Disease Active 2014-06 U viviana tubal tubal 1-13 ity of ligation ligation 00:00: [place] 00 Medical Branch Excessive Excessive Disease Active 2014-06 Uni vers or or 1-13 ity of frequent frequent 00:00: [place] menstruati menstruati 00 Me dical on on Branch Tobacco Tobacco Disease Active 2014-06 Univers use use 1-13 ity of disorder disorder 00:00: [place] 00 Medical Branch ABDOMINAL Diagnosis Active 2014-06-26 Memoria PAIN, 1 05:44:00 l SEIZURES 00:00: [place] ABDOMINAL 00 PAIN, SEIZURES Active 06/26/2013 [facility] ABD PAIN Diagnosis Active 2012-062013-04-19 M emoria 0-25 21:51:00 l ABD PAIN 19:00: Jake n 00 Active 04/14/2013 [facility] GASTROPERI Diagnosis Active 2012-09-13 Memoria SIS 2-12 15:17:00 l 00:00: [place] GASTROPERI 00 SIS Active 08/02/2012 [facility] ABDOMINAL Diagnosis Active 2012-03-14 Memoria PAIN 03-14 16:56:00 l 14:00: [place] ABDOMINAL 00 PAIN Active 03/14/2012 [facility] NAUSEA, Diagnosis Active 2012-03-14 Me moria VOMITING 03-14 13:25:00 l NAUSEA, 08:00: [place] VOMITING 00 Active 03/14/2012 [facility] N/V Diagnosis Active 2011-12-08 Mem oria INABILITY 11-27 11:14:00 l TO N/V 00:00: [place] TOLERATE INABILITY 00 PO TO TOLERATE PO Active 2 [facility] VOMITTING Diagnosis Active 2011-11-28 Memoria 11-27 16:28:00 l 00:00: [place] VOMITTING 00 Active 11/28/2011 [facility] VOMITTING, Diagnosis Active 2011-09-18 Memoria HIGH BLOOD 09-17 09:45:00 l SUGAR 00:00: [place] VOMITTING, 00 HIGH BLOOD SUGAR Active 09/18/2011 [facility] Methicilli Problem Active 2021-01-31 M emoria n 3-13 22:29:25 l resistant 00:00: [place] Staphyloco Methicilli 00 ccus n aureus resistant (organism) Staphyloco ccus aureus (organism) Active 09/01/2011 Problem 01/31/2021 09/01/11 - Elbow woundProbl em added by Discern Expert. [facility] MRSA Problem Active 2012-03-16 Memor ia 3- 09:11:30 l MRSA 00:00: [place] 00 Active 09/01/2011 Problem 03/16/2012 - Elbow [id number] emily added by Discern Expert. [facility] VOMITING, Diagnosis Active 2011-09-01 Memoria BLOOD 3-12 03:19:00 l SUGAR 00:00: [place] READINGS VOMITING, 00 HIGH BLOOD SUGAR READINGS HIGH Active 08/31/2011 [facility] ELBOW Diagnosis Active 2011-09-10 [facility] oria ABSCESS/HY 3-12 16:26:00 l PERGLYCEMI ELBOW 00:00: Nidia nn A ABSCESS/HY 00 PERGLYCEMI A Active 08/31/2011 [facility] Hypokalemi Problem Active 2012-03-16 M emoria a 3-04 09:11:30 l 00:00: [place] Hypokalemi 00 a Active 08/23/2011 Problem 03/16/2012 [facility] DKA Diagnosis Active 2011-08-24 [facility] oria 11:27:00 l DKA 00:00: Vin 00 [...] l Vin Hypoglycem ia Inactive Problem 03/16/2012 [facility] Hypoglycem Problem Inactiv 2013-04-22 Memoria ia e 04:46:33 l (disorder) Jake gonzalez Hypoglycem ia (disorder) Inactive Problem 04/22/2013 [facility] Gastropare Problem Resolve 2021-01-31 Memoria sis d 22:29:25 l (disorder) Jake gonzalez Gastropare sis (disorder) Resolved Problem 01/31/2021 [facility] Hypertensi Problem Resolve 2021-01-31 Memoria ve d 22:29:25 l disorder, [place] systemic Hypertensi arterial ve (disorder) disorder, systemic arterial (disorder) Resolved Problem 01/31/2021 [facility] Psychiatri Problem Resolve 2021-01-31 Memoria c d 22:29:25 l behavioral Jake n disability Psychiatri (finding) c behavioral disability (finding) Resolved Problem 01/31/2021 [facility] Seizure Problem Resolve 2021-01-31 Mem oria (finding) d 22:29:25 l Seizure [place] (finding) Resolved Problem 01/31/2021 [facility] Hypertensi Problem Active 2012-03-16 M emoria on 09:11:30 l [place] Hypertensi on Active Problem 2 [facility] Hypomagnes Problem Active 2013-04-22 M emoria emia 04:46:33 l Vin Hypomagnes emia Active Problem 04/22/2013 [facility] Nausea and Problem Active 2012-03-16 M emoria vomiting 09:11:30 l Nausea Vin and vomiting Active Problem 03/16/2012 [facility] ENCNTR FOR Diagnosis Active 2020-12-24 Memoria GENERAL 10:39:00 l ADULT ENCNTR [place] MEDICAL FOR EXAM W/ GENERAL ADULT MEDICAL EXAM W/ Active [facility] DMI Diagnosis Active 2011-08-24 Mem oria KETOACD 11:27:00 l UNCONTROLD DMI Jake n KETOACD UNCONTROLD Active [facility] OTHER Diagnosis Active 2011-09-10 Mem oria GENERAL 16:26:00 l SYMPTOMS OTHER [place] GENERAL SYMPTOMS Active [facility] [...] 00 vomiting (disorder) Resolved 11/29/2011 Problem 01/31/2021 [facility] Hypokalemi Problem Resolve 2021-01-31 2021-01-31 Memoria a d 3-04 22:29:25 22:29:25 l (disorder) 00:00: [place] n Hypokalemi 00 a (disorder) Resolved 08/23/2011 Problem 01/31/2021 [facility] Disorder Problem Resolve 2021-01-31 2021-01-31 Memoria of d 3- 22:29:25 22:29:25 l magnesium Disorder 00:00: Her braden metabolism of 00 (disorder) magnesium metabolism (disorder) Resolved 08/23/2011 Problem 01/31/2021 [facility] Hyperglyce Problem Resolve 2021-01-31 2021-01-31 Memoria maryam d 3- 22:29:25 22:29:25 l (disorder) 00:00: Jake n Hyperglyce 00 maryam (disorder) Resolved 08/20/2011 Problem 01/31/2021 [facility] Ketoacidos Problem Resolve 2021-01-31 2021-01-31 Memoria is in d 2 22:29:25 22:29:25 l diabetes 00:00: [place] mellitus Ketoacidos 00 (disorder) is in diabetes mellitus (disorder) Resolved 08/19/2011 Problem 01/31/2021 [facility] DKA Problem Resolve 2013-04-22 2013-04-22 Memoria (diabetic d 04:46:33 04:46:33 l ketoacidos DKA 00:00: Jake n es) (diabetic 00 ketoacidos es) Resolved 08/19/2011 Problem 04/22/2013 [facility] History of Past Illness Condition [...] maryam e 3- 09:11:30 09:11:30 l 00:00: [place] Hyperglyce 00 maryam Inactive 08/20/2011 Problem 03/16/2012 [facility] Allergies, Adverse Reactions, Alerts Allergy Allergy Status Severity Reaction(s) Onset Inactive Treating Comm ents Source Name Type Date Date Clinician Lactose Propensi Active GI 2020-06 Methodi ty to Intolerance 2-21 st adverse 00:00: Hospita reaction 00 l [...] ity of 00:00: [place] 00 Medical Branch NITROFUR Allergy Active High Anaphylaxis SL EH ANTOIN 01-03 MONOHYD/ 00:00: M-CRYST 00 PENICILL Allergy Active High Sob [facility] INS 01-03 00:00: 00 ZOLPIDEM Allergy Active Other [facility] 01-03 00:00: 00 Zolpidem Drug Active Other (See confusion [facility] Allergy Comments) 01-03 [facility] Lisinopr Drug Active Other (See Unable to [facility] il Allergy Comments) 01-03 [facility] 00:[facility]: [facility] 00 Center Nitrofur Drug Active Anaphylaxis Liver [facility] antoin Allergy 01-03 failure [facility] Monohyd/ 00:00: Medical [facility]-C[facility] 00 Center Penicill Drug Active Shortness Of [facility] ins Allergy Breath 01-03 [facility] Guaifene Drug Active Other (See numbness [facility] sin Allergy Comments) 01-03 [facility] LISINOPR Allergy Active Other [facility] IL 01-03 00:00: 00 Nitrofur Propensi Active Other (See Other Me [...] Reports transient liver disease with nitrofura ntoin GUAIFENE Allergy Active Other [facility] SIN 01-03 00:00: 00 Nitrofur Allergy Active Anaphylaxis Other UT antoin [...] Allergy Active Swelling throatthr UT c to 12-13 oatthroat Health Trometha substanc 00:00: mine e 00 Phenylep Allergy Active Other UT hrine to 4-29 reaction( Health substanc 00:00: s): Hives e 00 Fluphena Allergy Active Other UT zine to 4- reaction( Health substanc 00:00: s): ARM e 00 NUMBNESS Fluphena Propensi Active Other (See Other Me thodi zine ty to Comments) 4-29 reaction( st adverse 00:00: s): ARM Hospita reaction 00 NUMBNESS l s to drug Phenylep Propensi Active Hives Other Method i hrine ty to 4- reaction( st adverse 00:00: s): Hives Hospit [...] Tongue Me thodi il ty to Comments) 0-[address] adverse 00:00: acial Hospita reaction [...] (See Comments) , Other - See commentsn umbliananu mbnessnum bnessnumb nessnumbn essnumbne ssnumbnes s PROLEX [...] Other (See Meth frantz ty to Comments) 7-12 st adverse 00:00: Hospita reaction 00 l s to drug Penicill Allergy Active Shortness of 2010-06 Other U T ins to breath 2- reaction( Health substanc 00:00: s): e 00 [...] penicill Active Memori a ins ins l [place] codeine codeine Active Memoria l [place] morphine morphine Active Memori a l Vin lisinopr lisinopr Active Memori a il il l Vin Adhesive Adhesive Active Memori a Tape Tape l [place] Ambien Ambien Active Memoria l [place] Prolex Prolex Active Memoria DM DM l [place] penicill Drug Active [facility] lisinopr Drug Active [facility] Ambien Drug Active [facility] Prolixin Drug Active [facility] penicill Drug Active [facility] lisinopr Drug Active [facility] Ambien Drug Active [facility] Prolixin Drug Active [facility] Tape Other Active [facility] penicill Drug Active [facility] lisinopr Drug Active [facility] Ambien Drug Active [facility] Prolixin Drug Active [facility] codeine Drug Active [facility] penicill Drug Active [facility] lisinopr Drug Active [facility] Ambien Drug Active [facility] Prolixin Drug Active [facility] codeine Drug Active [facility] penicill Drug Active [facility] lisinopr Drug Active [facility] Ambien Drug Active [facility] Prolixin Drug Active [facility] penicill Drug Active [facility] in [facility] lisinopr Drug Active . [facility] Ambien Drug Active [facility] Prolixin Drug Active [facility] penicill Drug Active [facility] in [facility] lisinopr Drug Active [facility] Ambien Drug Active [facility] Prolixin Drug Active [facility] Social History Social Habit Start Date Stop Date Quantity Comments Source History of tobacco Cigarette Smoker [facility] Exposure to Yes [facility] SARS-CoV-2 (event) Hospit al Alcohol intake 2021-06-18 2021-06-18 Ex-drinker [facility] 00:00:00 00:00:00 (finding) Hospital Cigarettes smoked 2021-05-14 2021-05-[address] current (pack per 00:00:00 00:00:00 Hospita l day) - Reported Cigarette 2021-05-14 2021-05-14 [facility] pack-years 00:00:00 00:00:00 Hospital Tobacco use and 2021-05-14 2021-05-14 Smokeless tobacco [facility] exposure 00:00:00 00:00:00 non-user Hospital Social History 2020-12-24 2020-12-24 [facility] fatou 15:49:37 15:49:37 Tobacco Comment 2017-11-12 2017-11-12 5 cigarettes per Met [facility]ist 00:00:00 00:00:00 day Hospital Sex Assigned At [birth year] [facility] 00:00:00 00:00:00 Hospital Smoking Status Start Date Stop Date Source Smokes tobacco daily 2021-05-14 00:00:00 [facility] Former smoker 2020-06-27 00:00:00 2020-06-27 00:00:00 [facility] Medications Ordered Filled Start Stop Current Ordering Indication Dosage Frequency Signature Comments Components Source Medication Medication Date Date Medication? Clinician (SIG) Name Name glipiZIDE Yes 5mg Take 5 mg Met hodi (GLUCOTROL) 1-[address] 5 MG tablet 13:02: daily. Hosp jo-ann 39 l calcium 2022-0 Yes 667mg Q.[id number] Take 667 [facility] acetate 1-[id number] (PHOSLO) 13:02: 3D mouth 3 Hospit a 667 mg 39 (three) l capsule times a day with meals. Takes 7 pills with every meal and snack. Patient States meal or snack per day. sertraline 2021-0 Yes 50mg QD Take 50 mg M ethodi (ZOLOFT) 50 1-[address] MG tablet 13:02: daily. Hospit a 39 l furosemide 202-0 Yes 80mg Q.5D Take 80 mg M [...] Take 4 mg Met hodi (CARDURA) 4 -[address] MG tablet 13:02: nightly. [...] 13:02: daily. Hospita tablet 39 l busPIRone 2022-0 Yes 15mg Q.5D Take 15 mg Me thodi (BUSPAR) 1-[address] 7.5 MG 13:02: (two) Hospita tablet 39 times a l day. 2 traZODone 0 Yes 150mg QD Take 150 Met hodi (DESYREL) 1-[address] 150 MG 13:02: mouth Hospita tablet 39 nightly. l calcium 0 Yes 1334mg Q.[id number] Take 1,334 Methodi acetate,domingo -18 [id number] mg by s t sphat bind, 13:02: 3D mouth 3 Hos whit (Phoslyra) 39 (three) l 667 mg (169 times a mg day. calcium)/5 mL solution cyproheptad Yes 4mg Q.[id number] Take 4 mg Methodi ine -18 [id number] mouth [address] (PERIACTIN) 13:02: 3D (three) Hos whit 4 mg tablet 39 times a l day as needed for allergies. buPROPion Yes 300mg QD Take 300 Met hodi XL 1-[address] (WELLBUTRIN 13:02: mouth Hospi ta XL) 300 MG 39 daily. l 24 hr tablet ascorbic Yes 500mg Q.[id number] Take 500 Methodi acid, -[id number] vitamin C, 13:02: 3D mouth 3 Hosp jo-ann (ascorbic 39 (three) l acid with times a sia hips) day. 500 MG tablet clonAZEPAM Yes .5mg Take 0.5 Met hodi (KlonoPIN) 1-[address] 0.5 MG 13:02: mouth as Hospita tablet 39 needed for l anxiety. apixaban 2020-06- No 10mg Q.5D Take 10 mg Me thodi (ELIQUIS) 5 - by mouth 2 s t mg tablet 18:13: 00:00 (two) Hospit a 51 :00 times a l day. Takes 10 mg in morning and 5 mg at night vancomycin 2020-06- No 750mg Q.[id number] Infuse 750 Methodi 750 mg in - [id number] mg into a st sodium 00:00: 05:59 3W venous Hospita chloride 00 :00 catheter 3 l 0.9% 250 mL (three) IVPB times a week for 19 days. Administer 3 times weekly in dialysis HYDROcodone 2020-06 1{tbl} Q6H Take 1 Methodi -acetaminop 06-[address] hen (NORCO) 00:00: 05:59 mouth Hosp jo-ann 5-325 mg 00 :00 every 6 l per tablet (six) hours as needed for severe pain for up to 5 days .acute pain. Max Daily Amount: 4 tablets spironolact 2020-06 50mg QD Take 50 mg Methodi one 216 12-[address] (ALDACTONE) 10:21: 00:00 daily. Hos whit 50 MG 19 :00 l tablet clopidogreL 2020-06 75mg QD Take 1 Met hodi (PLAVIX) 75 07-27- tablet (75 s t mg tablet 00:00: 05:59 mg total) Ho spita 00 :00 by mouth l daily for 30 days. gabapentin 2020-06 300mg QD Take 1 Met hodi (NEURONTIN) 2- capsule st 300 mg 00:00: 05:59 (300 mg Hospita capsule 00 :00 total) by l mouth daily for 30 days. sennosides- 2020-06 1{tbl} QD Take 1 M ethodi docusate 206-[address] sodium 00:00: 05:59 mouth Hospita (SENOKOT-S) 00 :00 nightly l 8.6-50 mg for 30 per tablet days. HYDROcodone 2020-06 2{tbl} Q8H Take 2 Methodi -acetaminop 2 12-13 tablets by s t hen (NORCO) 00:00: 05:59 mouth Hosp jo-ann 5-325 mg 00 :00 every 8 l per tablet (eight) hours as needed for severe pain for up to 7 days .acute pain. Max Daily Amount: 6 tablets predniSONE 2020-06 No [id number] Take M ethodi (DELTASONE) 07-18-05 Prednisone s t 50 mg 00:00: 00:00 50mg 13 Hospita tablet 00 :00 hours, 7 l hours, and 1 hour prior to scheduled procedure on 05/19/2021 for contrast allergy prophylaxi s. linaGLIPtin 2020-06- No 5mg QD Take 5 mg Methodi [...] by mouth ity of (PROTONIX) 11:08: daily. [place] 20 mg EC 01 Medical tablet Branch Cholecalcif 2020-06 Yes 5000U Take 5,000 [facility] mansi, 0-03 Units by ity of Vitamin D3, 11:08: [place]. [place] 125 mcg 01 Medical (5,000 Branch unit) tablet proMETHazin 2020-06 Yes 25mg Take 25 mg Univers e 25 mg 0-03 by mouth. ity of tablet 11:08: [place] [address] Medical Branch aspirin 81 2020-06 Yes 81mg Take 1 Unive rs mg chewable 0-03 tablet by ity of tablet 11:08: mouth [place] [address] daily. Medical Branch divalproex 2020-06 Yes 500mg Take 500 Un lori ER 0-01 mg by ity of (DEPAKOTE 23:08: mouth 2 [place] ER) 500 mg 36 (two) Medical 24 hr times Branch tablet daily. gabapentin 2020-06 Yes 100mg Take 100 Un lori 100 mg 0-01 mg by ity of capsule 23:08: mouth 2 [place] 36 (two) Medical times Branch daily. vitamin C 2020-06 Yes 2000mg Take 2,000 Univers with sia 0-01 mg by ity of hips 23:08: mouth 2 [place] (VITAMIN C) 36 (two) Medical 1,000 mg times Branch tablet daily. metoprolol 2020-06 Yes 50mg Take 50 mg U nivers tartrate 50 0-01 by mouth ity of mg tablet 23:08: daily. [place] [address] Medical Branch folic 2020-06 Yes 800mg Take 800 Univers acid/vit B 0-01 mg by ity of complex and 23:08: mouth [place] C 36 daily. Medical (DIALYVITE Branch 800 ORAL) linagliptin 2020-06 Yes Take by Un lori (TRADJENTA) 0-01 mouth. ity of 5 mg tablet 23:08: [place] [address] Medical Branch spironolact 2020-06 Yes 50mg Take 50 mg Univers one 50 mg 0-01 by mouth ity of tablet 23:08: daily. [address] Branch pravastatin 2020-06 Yes 40mg Take 40 mg Univers 40 mg 0-01 by mouth ity of tablet 23:08: daily. [address] Branch mv-mn/iron/ 2020-06 Yes 1{capsu Take 1 U nivers folic 0-01 le} capsule by ity of acid/herb 23:08: mouth [place] 190 36 daily. Medical (VITAMIN D3 Branch COMPLETE ORAL) SERTraline 2020-06 Yes 50mg Take 50 mg U nivers 50 mg 0-01 by mouth ity of tablet 23:08: daily. [address] Branch calcium 2020-06 Yes 667mg Take 667 Unive rs acetate 667 0-01 mg by ity of mg capsule 23:08: mouth 3 [place] 36 (three) Medical times Branch daily with meals. cetirizine 2020-06 Yes 1{tbl} Take 1 Uni vers HCl/pseudoe 0-01 tablet by ity of phedrine 23:08: mouth [place] (ZYRTEC-D 36 daily. Medical ORAL) Branch furosemide 2020-06 Yes 40mg Take 40 mg U nivers 40 mg 0-01 by mouth 2 ity of tablet 23:08: (two) [place] [address] times Medical daily. Branch divalproex 2020-06 Yes 500mg Take 500 Un lori ER 0-01 mg by ity of (DEPAKOTE 23:08: mouth 2 [place] ER) 500 mg 36 (two) Medical 24 hr times Branch tablet daily. gabapentin 2020-06 Yes 100mg Take 100 Un lori 100 mg 0-01 mg by ity of capsule 23:08: mouth 2 [place] 36 (two) Medical times Branch daily. vitamin C 2020-06 Yes 2000mg Take 2,000 Univers with sia 0-01 mg by ity of hips 23:08: mouth 2 [place] (VITAMIN C) 36 (two) Medical 1,000 mg times Branch tablet daily. metoprolol 2020-06 Yes 50mg Take 50 mg U nivers tartrate 50 0-01 by mouth ity of mg tablet 23:08: daily. [address] Branch folic 2020-06 Yes 800mg Take 800 Univers acid/vit B 0-01 mg by ity of complex and 23:08: mouth [place] C 36 daily. Medical (DIALYVITE Branch 800 ORAL) linagliptin 2020-06 Yes Take by Un lori (TRADJENTA) 0-01 mouth. ity of 5 mg tablet 23:08: [address] Branch spironolact 2020-06 Yes 50mg Take 50 mg Univers one 50 mg 0-01 by mouth ity of tablet 23:08: daily. [address] Branch pravastatin 2020-06 Yes 40mg Take 40 mg Univers 40 mg 0-01 by mouth ity of tablet 23:08: daily. [address] Branch mv-mn/iron/ 2020-06 Yes 1{capsu Take 1 U nivers folic 0-01 le} capsule by ity of acid/herb 23:08: mouth [place] 190 36 daily. Medical (VITAMIN D3 Branch COMPLETE ORAL) SERTraline 2020-06 Yes 50mg Take 50 mg U nivers 50 mg 0-01 by mouth ity of tablet 23:08: daily. [address] Branch calcium 2020-06 Yes 667mg Take 667 Unive rs acetate 667 0-01 mg by ity of mg capsule 23:08: mouth 3 [place] 36 (three) Medical times Branch daily with meals. cetirizine 2020-06 Yes 1{tbl} Take 1 Uni vers HCl/pseudoe 0-01 tablet by ity of phedrine 23:08: mouth [place] (ZYRTEC-D 36 daily. Medical ORAL) Branch furosemide 2020-06 Yes 40mg Take 40 mg U nivers 40 mg 0-01 by mouth 2 ity of tablet 23:08: (two) [place] [address] times Medical daily. Branch BUPROPION 2020-06- No 300mg Take 300 Un lori HCL ORAL 0-01 10-01 mg by ity of 16:33: 00:00 mouth [place] 14 :00 every Medical morning. Branch Wellbutrin XL tramadol No Notes: Not Mem oria hydrochlori 8-11 to exceed l de 50 MG 11:14: 400mg/day. Her braden Oral Tablet 00 (Same As: Ultram) Simethicone No Notes: Mendoza janice -11 (Same as: l 01:36: Mylicon) epoetin Yes 2,000 unit Mendoza janice giovanny-epbx 8-10 = 1 mL, l 1999 19:37: IV, [place] units/mL 00 Q-, preservativ to be e-free given at injectable post solution Dialysis sessions, 0 Refill(s) gabapentin Yes 300 mg = 1 M emoria 300 MG Oral 8-10 cap, PO, l Capsule 19:34: , # Herm naeem 00 13 cap, 0 Refill(s) amLODIPine Yes 10 mg = 1 Me moria 10 mg oral 8-10 tab, PO, l tablet 19:33: Daily, # [place] 00 30 tab, 2 Refill(s) busPIRone Yes 7.5 mg = 1 Me moria 7.5 mg oral 8-10 tab, PO, l tablet 19:33: BID, 0 Vin 00 Refill(s) buPROPion Yes 75 mg = 1 Mem oria 75 mg oral 8-10 tab, PO, l tablet 19:33: Daily, # [place] 00 14 tab, 0 Refill(s) Norvasc No [...] 01-27 not exceed l 09:29: 4 gm/day. [place] (Same as: Tylenol) tramadol No Notes: Not Mem oria hydrochlori 01-27 to exceed l de 50 MG 09:29: 400mg/day. Her braden Oral Tablet 00 (Same As: Ultram) heparin No Notes: Memoria 01-27 porcine l 02:00: heparin Magnesium No Notes: Memori a Oxide 01-23 (Same as: l 22:54: Mag-Ox [place] 00 400) Magnesium oxide 124zd=846s g elemental magnesium Dose=____m g magnesium oxide (___mg elemental magnesium) Coreg No Notes: Memoria 01-23 Give with l 02:00: food. [place] (Same As: Coreg) Buspar No Notes: Memoria 01-22 (Same As: l 22:00: BuSpar) [place] 00 Fentanyl No Notes: Memoria 01-22 (Same as: l 21:06: Sublimaze) Preservat montse [...] CDT Metoprolol No Notes: Memor ia Succinate 01-22 (Same as: l ER 100 mg 14:00: Toprol XL) He rmann oral 00 May split tablet, tab, but extended do not release crush. Pravastatin No Notes: Mendoza janice - (Same as: l 14:00: Pravachol) Zoloft No Notes: Memoria 8-04 (Same as: l 14:00: Zoloft) Tramadol No Notes: Not Mem oria 8- to exceed l 09:44: 400mg/day. (Same As: Ultram) Tylenol No Notes: Do Memor ia 8- not exceed l 09:44: 4 gm/day. [place] 00 (Same as: Tylenol) Fentanyl No Notes: Memoria 8-04 (Same as: l 09:44: Sublimaze) Preservat montse free. Fentanyl No Notes: Memoria 8-04 (Same as: l 04:46: Sublimaze) Vin 00 Preservat montse free. Fentanyl No Notes: Memoria 8-04 (Same as: l 02:01: Sublimaze) [place] 00 Preservat montse free. Coreg No Notes: Memoria - Give with l 02:00: food. 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 Same as: Diprivan midazolam No Route: IV, Me moria (ANES) 01-21 Drug form: l 17:18: SOLN, 00 ONCE, Stop date: 01/21/21 12:18:00 CDT [...] ___ mg Promethazin No Notes: Do M ruperto e 01-21 not give l 13:16: IV push. [place] 00 (Same as: Phenergan) Simethicone No Notes: Mendoza janice 8-03 (Same as: l 13:16: Vin [place] 00 Phazyme, Genasyme) calcium No See Memoria [...] 00 tab, 2 Refill(s), Pharmacy: [facility], 154.94, cm, 12/24/20 10:43:00 CDT, Height, 71.818, kg, 12/24/20 10:43:00 CDT, Weight {2 (480 ML Yes See Memoria Magnesium 7-06 Instructio l [...] 0 MG/ML / Refill(s), picosulfate Pharmacy: [facility].0625 Pharm[facility] MG/ML Oral 808, Solution 154.94, [Clenpiq] cm, 12/24/20 10:43:00 CDT, Height, 71.818, kg, 12/24/20 10:43:00 CDT, Weight cyproheptad Yes 4 mg = 1 Me moria ine 4 mg 7-06 tab, PO, l oral tablet 18:10: TID, X 30 H day, # 90 tab, 3 Refill(s), Pharmacy: [facility], 154.94, cm, 12/24/20 10:43:00 [...] 00 each day in the morning. gabapentin 2020-0 Yes 100mg QD Take 100 [facility] (Neurontin) 6-19 mg by [facility] 100 MG 00:00: mouth 1 capsule 00 (one) time each day. divalproex 2020-0 Yes 500mg Q.5D Take 500 [facility] (Depakote 6-19 mg by [facility] ER) 500 MG 00:00: mouth 2 24 hr 00 (two) tablet times a day. busPIRone 2020-0 Yes 7.5mg Q.5D Take 7.5 [facility] (Buspar) 6-19 mg by [facility] 7.5 MG 00:00: mouth 2 tablet 00 [...] Take 1 UT succinate 5-25 tablet by [facility] h XL 00:00: mouth 1 (Toprol-XL) 00 (one) time 50 MG 24 hr each day. tablet ascorbic Yes 500mg Q.[id number] Take 500 [facility] acid 5-15 [id number] mg by [facility] (Vitamin C) 00:00: 3D mouth 3 500 MG 00 (three) tablet times a day. sucralfate 0 Yes 1{tbl} QD Take 1 [facility] (Carafate) 5-10 tablet by [facility] th 1 g tablet 00:00: mouth 1 00 (one) time each day. zinc 2020-0 Yes DAILY Univers sulfate 50 5-10 ity of mg zinc 00:00: [place] (220 mg) 00 Medical capsule Branch ondansetron 2020-0 Yes 4mg Take 4 mg U nivers 4 mg 4-13 by mouth ity of disintegrat 00:00: daily. [place] tablet 00 Medical Branch GLIPIZIDE 5 Yes [id number] TAKE 1 Univers mg tablet -06 TABLET BY ity o f 00:00: MOUTH [place] 00 TWICE Medical DAILY Branch BEFORE BREAKFAST AND BEFORE SUPPER doxazosin 4 2020- No 4mg Take 4 mg Univers mg tablet 06-27 by mouth 2 ity of 10:52: 00:00 (two) [place] 22 :00 times Medical daily. Branch doxazosin 4 Yes 4mg Take 1 Univ ers mg tablet -07 tablet by ity o f 00:00: mouth at [place] 00 bedtime. Medical Branch doxazosin 4 Yes 4mg Take 1 Univ ers mg tablet - tablet by ity o f 00:00: mouth at [place] 00 bedtime. Medical Branch glipiZIDE 5 2019-06- No [id number] 5mg Take 1 Univers mg tablet 07-01 [...] by ity of tablet 00:00: mouth at [place] 00 bedtime. Medical Branch traZODone 0 Yes 150mg Take 150 Uni vers 150 mg 8-13 mg by ity of tablet 00:00: mouth at [place] 00 bedtime. Medical Branch erythromyci 2020- No [id number] .5[in_u Place 0.5 Univers n 5 mg/gram [...] for Wheezing or Shortness of Breath. albuterol Yes 2{puff} Inhale 2 U nivers [...] ophthalmic needed for drops Dry eyes. artificial Yes 1[drp] Place 1 Un lori tears,hypro 2-08 Drop in ity o f mellose, 00:00: left eye 4 Baljinder as (ISOPTO 00 (four) Medical TEARS) 0.5 times Branch % daily as ophthalmic needed for drops Dry eyes. divalproex Yes depression 500mg QD Take [address] [facility] (DEPAKOTE) 7-20 associated mg by Kenyatta kes 500 MG EC 15:20: with mouth Medical tablet 59 bipolar daily. Center disorder ondansetron 2017- Yes 4mg Take [address] (ZOFRAN) 4 7-20 by mouth [facility] tablet 15:20: every 6 Medic al 59 (six) Center hours as needed for Nausea. traMADol 2017 Yes 50mg Take [address] [facility] (ULTRAM) 50 7-20 by mouth [facility] mg tablet 15:20: every 6 Medic al 59 (six) Center hours as needed for Pain. pantoprazol 2017-0 Yes 40mg QD Take [address] [facility] e 7-20 by mouth [facility] (PROTONIX) 15:20: daily. Medic al 40 MG 59 Center tablet amLODIPine 2017-0 Yes 10mg QD Take [address] (NORVASC) 5 7-20 by mouth Luke [facility] MG tablet 15:20: daily. Medica l 59 Center hydrALAZINE 2017-0 Yes 100mg Q.[id number] Take [address] [facility] (APRESOLINE 7-20 [id number] mg by L ukes ) 100 MG 15:20: 3D mouth 3 Medica l tablet 59 (three) Center times daily. magnesium 2017-0 Yes 400mg QD Take [address] oxide 7-20 mg by [facility] (MAG-OX) 15:20: mouth Medical 400 mg 59 daily. Center tablet metoclopram 2017-0 Yes 10mg Q.[id number] Take [address] [facility] gadiel HCl 7-20 [id number] by mouth 3 [facility] (REGLAN) 10 15:20: 3D (three) Med ical MG tablet 59 times Center daily. meclizine 2017-0 Yes 12.5mg Take 12.[address] (ANTIVERT) 7-20 mg by [facility] 25 MG 15:20: mouth 3 Medical tablet 59 (three) Center times daily as needed. sertraline 2017-0 Yes anxiety QD Take by [facility] (ZOLOFT) 7-20 with mouth [facility] 100 MG 15:20: depression daily. Med ical tablet 59 Center medroxyPROG 2017-[address] [facility] ESTERone 7-20 intramuscu [facility] (DEPO-PROVE 15:20: larly Medic al RA) 150 59 every 3 Center mg/mL (three) injection months. divalproex 2017-0 Yes depression 500mg QD Take [address] [facility] [address] (DEPAKOTE) 7-20 associated mg by Kenyatta kes 500 MG EC 15:20: with mouth Medical tablet 59 bipolar daily. Center disorder ondansetron 2017-0 Yes 4mg Take [address] (ZOFRAN) 4 7-20 by mouth [facility] MG tablet 15:20: every 6 Medic al 59 (six) Center hours as needed for Nausea. traMADol 2017-0 Yes 50mg Take [address] [facility] (ULTRAM) 50 7-20 by mouth Luke s mg tablet 15:20: every 6 Medic al 59 (six) Center hours as needed for Pain. pantoprazol 2017-0 Yes 40mg QD Take [address] [facility] e 7-20 by mouth [facility] (PROTONIX) 15:20: daily. Medic al 40 MG 59 Center tablet amLODIPine 2017-0 Yes 10mg QD Take [address] (NORVASC) 5 7-20 by mouth Luke s MG tablet 15:20: daily. Medica l 59 Center hydrALAZINE 2017-0 Yes 100mg Q.[id number] Take [address] [facility] [address] (APRESOLINE 7-20 [id number] mg by L ukes ) 100 MG 15:20: 3D mouth 3 Medica l tablet 59 (three) Center times daily. magnesium 2017-0 Yes 400mg QD Take [address] oxide 7-20 mg by [facility] (MAG-OX) 15:20: mouth Medical 400 mg 59 daily. Center tablet metoclopram 2017-0 Yes 10mg Q.22451518 Take [address] [facility] gadiel HCl 7-20 [id number] by mouth 3 [facility] (REGLAN) 10 15:20: 3D (three) Med ical MG tablet 59 times Center daily. meclizine 2017-0 Yes 12.5mg Take 12.[address] (ANTIVERT) 7-20 mg by [facility] 25 MG 15:20: mouth 3 Medical tablet 59 (three) Center times daily as needed. sertraline 2017-0 Yes anxiety QD Take by [facility] (ZOLOFT) 7-20 with mouth [facility] 100 MG 15:20: depression daily. Med ical tablet 59 Center medroxyPROG 2017-[address] [facility] ESTERone 7-20 intramuscu [facility] (DEPO-PROVE 15:20: larly Medic al RA) 150 59 every 3 Center mg/mL (three) injection months. divalproex 2017-0 Yes depression 500mg QD Take [address] (DEPAKOTE) 7-20 associated mg by Kenyatta kes 500 MG EC 15:20: with mouth Medical tablet 59 bipolar daily. Center disorder ondansetron 2017-0 Yes 4mg Take [address] (ZOFRAN) 4 7-20 by mouth [facility] MG tablet 15:20: every 6 Medic al 59 (six) Center hours as needed for Nausea. traMADol 2017-0 Yes 50mg Take [address] (ULTRAM) 50 7-20 by mouth Luke [facility] mg tablet 15:20: every 6 Medic al 59 (six) Center hours as needed for Pain. pantoprazol 2017-0 Yes 40mg QD Take [address] [facility] e 7-20 by mouth [facility] (PROTONIX) 15:20: daily. Medic al 40 MG 59 Center tablet amLODIPine 2017-0 Yes 10mg QD Take [address] (NORVASC) 5 7-20 by mouth Luke s MG tablet 15:20: daily. Medica l 59 Center hydrALAZINE 2017-0 Yes 100mg Q.[id number] Take [address] (APRESOLINE 7-20 [id number] mg by L ukes ) 100 MG 15:20: 3D mouth 3 Medica l tablet 59 (three) Center times daily. magnesium 2017-0 Yes 400mg QD Take [address] oxide 7-20 mg by [facility] (MAG-OX) 15:20: mouth Medical 400 mg 59 daily. Center tablet metoclopram 2017-0 Yes 10mg Q.[id number] Take [address] [facility] gadiel HCl 7-20 [id number] by mouth 3 [facility] (REGLAN) 10 15:20: 3D (three) Med ical MG tablet 59 times Center daily. meclizine 2017-0 Yes 12.5mg Take 12.[address] (ANTIVERT) 7-20 mg by [facility] 25 MG 15:20: mouth 3 Medical tablet 59 (three) Center times daily as needed. sertraline 2017-0 Yes anxiety QD Take by [facility] (ZOLOFT) 7-20 with mouth [facility] 100 MG 15:20: depression daily. Med ical tablet 59 Center medroxyPROG 2017-[address] [facility] ESTERone 7-20 intramuscu [facility] (DEPO-PROVE 15:20: larly Medic al RA) 150 59 every 3 Center mg/mL (three) injection months. insulin 2017-0 Yes 5U QD Inject [address] [facility] [address] glargine 7-20 Units [facility] (LANTUS) 00:00: subcutaneo Med ical 100 unit/mL 00 usly every Ce nter injection morning Use as directed . insulin 2017-0 Yes 5U QD Inject [address] [facility] glargine 7-20 Units [facility] (LANTUS) 00:00: subcutaneo Med ical 100 unit/mL 00 usly every Ce nter injection morning Use as directed . insulin 2017-0 Yes 5U QD Inject [address] glargine 7-20 Units [facility] (LANTUS) 00:00: subcutaneo Med ical 100 unit/mL 00 usly every Ce nter injection morning Use as directed . Furosemide 2017 Yes 40 mg = 1 Me moria 40 MG Oral 2-09 tab, PO, l Tablet 15:07: Daily, # [place] 00 30 tab, 0 Refill(s), Pharmacy: [id number] Bumex No 0.5 mg, Memoria 2-09 Route: PO, l 15:00: Drug form: Vin 00 TAB, Daily, Dosing Weight 92.273, kg, Start date: 07/30/16 9:00:00 BASKET PERSON, Duration: 30 day, Stop date: 08/28/16 9:00:00 BASKET PERSON Lasix 0 No Notes: Memoria 2-08 (Same [...] Total Volume: 1,000, Start date: 07/26/16 12:26:00 BASKET PERSON, Duration: 30 day, Stop date: 08/25/16 12:25:00 BASKET PERSON Sodium 2017-0 No 500 mL, Memoria Chloride 2-05 500 ml/hr, l 0.154 13:30: Infuse Vin MEQ/ML 00 Over: 1 Injectable hr, Route: Solution IV, 500, Drug form: INJ, ONCE, Priority: STAT, Dosing Weight 92.273 kg, Start date: 07/26/16 7:30:00 BASKET PERSON, Duration: 1 doses or times, Stop date: 07/26/16 7:30:00 BASKET PERSON Insulin 2016-0 No 60 Memoria regular 2-04 units) l 08:39: WASTE: F/P [place] 00 - Black; E - Municipal Trash [...] n 2-04 (Same as: l 03:00: Lipitor) [place] 00 divalproex No Notes: Memor ia sodium 2-04 (Same as: l 03:00: Depakote [place] 00 ER) Once daily dosing; indicated for migraines. Divalproe x sodium extended-r elease tab. Do not chew or crush. "Do Not Crush" Lasix No Notes: Memoria 2-03 (Same as: l 22:00: Lasix) [place] 00 MEDICATION WASTE Product Size: 40 mg Product Wasted: ___ mg Tylenol No Notes: Max Mendoza janice 2-03 acetaminop l 21:52: hen = Vin 00 4000mg/day (4 gm/day). (Same as: Tylenol) Bupropion No 150 mg, 1 Mem oria 2-03 tab, l 15:00: Route: PO, [place] Drug form: ERTAB, Daily, Dosing Weight 92.273, kg, Start date: 07/24/16 9:00:00 BASKET PERSON, Duration: 30 day, Stop date: 08/22/16 9:00:00 BASKET PERSON 24 HR No Notes: Memoria Divalproex 2-03 [...] Memoria 2-03 (Same as: l 15:00: Lasix) [place] 00 MEDICATION WASTE Product Size: 40 mg Product Wasted: ___ mg Zoloft No Notes: Memoria 2-03 (Same as: l 15:00: Zoloft) [place] 00 Protonix No Notes: Memoria 2-03 Tablet l 15:00: should not be chewed or crushed. (Same as: Protonix) metoprolol No 100 mg, 2 Me moria extended 2-03 tab, l release 15:00: Route: PO, Herm naeem Drug form: ERTAB, Daily, Start date: 07/24/16 9:00:00 BASKET PERSON, Duration: 30 day, Stop date: 08/22/16 9:00:00 BASKET PERSON Insulin No Notes: Memoria Glargine 2-03 Same [...] janice 2-03 (Same as: l 14:50: Zofran) [place] 00 MEDICATION WASTE Product Size: 4 mg Product Wasted: ___ mg Morphine No Notes: Memoria 2-03 (Same l 14:50: as:MORPhin [place] 00 e Sulfate) Insulin, No Notes: Memoria [...] Memoria 2-03 Same as l 11:28: Dilaudid [place] 00 Insulin, No Notes: Memoria Aspart, 2-03 [...] Blood Glucose Results, Start date: 07/24/16 2:40:00 BASKET PERSON, Duration: 30 day, Stop date: 08/23/16 2:39:00 BASKET PERSON Dextrose No 25 gm, 50 Mendoza janice 50% Syringe 2-03 mL, Route: l 08:40: IVP, Drug Form: INJ, Dosing Weight 92.273, kg, PRN, PRN Blood Glucose Results, Start date: 07/24/16 2:40:00 BASKET PERSON, Duration: 30 day, Stop date: 08/23/16 2:39:00 BASKET PERSON Docusate No Notes: Memoria 2- (Same as: [...] (Same as: / 04:09: Duoneb) Ipratropium 00 [place] 0.167 MG/ML Inhalant Solution [DuoNeb] Furosemide 2015-06 Yes 80 mg = 2 Me moria 40 MG Oral 2-26 tab, PO, l Tablet 16:34: BID, # 120 Nidia nn 00 tab, 0 Refill(s) atorvastati 2015-06 Yes 40 mg = 1 M emoria n 40 mg 2-26 tab, PO, l oral tablet 16:34: Bedtime, # [place] 00 30 tab, 0 Refill(s) Insulin 2015-06 [...] tab, PO, l tablet 16:34: Daily, # [place] 00 30 tab, 0 Refill(s) Lasix 2015-06 No Notes: Memoria 2-26 (Same as: l 15:00: Lasix) [place] 00 May cause GI upset. Give with food or milk. Magnesium 2015-06 No Notes: Memori a Oxide 2-24 (Same as: l 13:36: Mag-Ox [place] 00 400) Magnesium oxide 697ck=873z g elemental magnesium Dose=____m g magnesium oxide (___mg elemental magnesium) Magnesium 2015-06 No Notes: Memori a Oxide 2-24 (Same as: l 09:47: Mag-Ox [place] 00 400) Magnesium oxide 813nu=555q g elemental magnesium Dose=____m g magnesium oxide [...] Memoria 2-24 (Same as: l 00:00: Norvasc) [place] 00 Insulin 2015-06 No Notes: Memoria Glargine [...] tab, PO, l Tablet 15:27: Daily, 0 [place] [Zoloft] 00 Refill(s) pantoprazol 2015-06 Yes 40 [...] 2-22 Route: PO, l 15:00: Drug form: [place] 00 ECTAB, Daily, Dosing Weight 86.364, kg, Start date: 06/11/16 9:00:00 BASKET PERSON, Duration: 30 day, Stop date: 07/10/16 9:00:00 BASKET PERSON Insulin 2015-06 No Notes: Memoria Glargine 2-22 Same as: l 100 UNT/ML 15:00: Lantus) Do H ermann Injectable 00 not hold Solution insulin [Lantus] without contacting prescriber WASTE: F/P - Black; E - Municipal Trash Bin Zoloft 2015-06 No Notes: Memoria 2-22 (Same as: l 15:00: Zoloft) [place] 00 Insulin, 2015-06 No Notes: Memoria Aspart, 2- Roll in l Human 12:55: palms of [place] 00 hands gently; Do not shake vigorously . (Same as: NovoLOG) "single patient use only" WASTE: F/P - Black; E - Municipal Trash Bin Stable for 28 days at room temperatur e. Expires in days from ____Date heparin 2015-06 No Notes: Memoria sodium, 2-22 porcine l porcine 06:00: heparin [place] 2500 UNT/ML 00 Injectable Solution Albuterol 2015-06 No Notes: Memori a 0.833 MG/ML - (Same as: l / 03:00: Duoneb) Vin Ipratropium 00 [place] 0.167 MG/ML Inhalant Solution [DuoNeb] gabapentin 2015-06 No 300 mg, Mendoza janice 300 MG Oral 2-22 Route: PO, l Capsule 03:00: Drug form: Herm naeem 00 CAP, Q12H, Dosing Weight 86.364, kg, (CrCl 30 - 59 ml/min), Start date: 06/10/16 21:00:00 BASKET PERSON, Duration: 30 day, Stop date: 07/10/16 9:00:00 BASKET PERSON divalproex 2015-06 No Notes: Memor ia sodium 2-22 (Same as: l 03:00: Depakote [place] 00 ER) Once daily dosing; indicated for migraines. Divalproe x sodium extended-r elease tab. Do not chew or crush. "Do Not Crush" Losartan 2015-06 No Notes: Memoria 2-22 (Same as: l 03:00: Cozaar) [place] 00 Insulin, 2015-06 No Notes: Memoria Aspart, 2-22 Roll in l Human 00:50: palms of [place] 00 hands gently; Do not shake vigorously [...] Blood Glucose Results, Start date: 06/10/16 18:50:00 BASKET PERSON, Duration: 30 day, Stop date: 07/10/16 18:49:00 BASKET PERSON Glucagon 2015-06 No 1 mg, Memoria 2-22 Route: IM, l 00:50: Drug form: [place] 00 PDR/INJ, PRN, Dosing Weight 86.364, kg, PRN Blood Glucose Results, Start date: 06/10/16 18:50:00 BASKET PERSON, Duration: 30 day, Stop date: 07/10/16 18:49:00 BASKET PERSON Hydralazine 2015-06 No Notes: Mendoza janice 2-22 [...] Weight 86.364, kg, Start date: 06/10/16 18:06:00 BASKET PERSON, Stop date: 06/10/16 18:06:00 BASKET PERSON hydrOXYzine 2015-06 No Notes: Mendoza janice pamoate 08-11 (Same as: l 23:00: Vistaril) Furosemide 2015-06 No 60 mg, Memor ia 08-11 Route: l 22:32: IVP, Drug form: INJ, ONCE, Dosing Weight 86.364, kg, Start date: 06/10/16 16:32:00 BASKET PERSON, Stop date: 06/10/16 16:32:00 BASKET PERSON Lasix 2015-06 No Notes: Memoria 08-11 (Same as: l 17:22: Lasix) MEDICATION WASTE Product Size: 40 mg Product Wasted: _0__ mg Albuterol 2015-06 No Notes: Memori a 0.833 MG/ML 08-11 (Same as: l 17:22: Duoneb) Ipratropium 00 [place] 0.167 MG/ML Inhalant Solution [DuoNeb] Promethazin Yes 25 mg = 1 M emoria e 06 supp, CT, l Hydrochlori 14:45: Q6H, Jake gonzalez de [...] Hung Murillo 5 mg, Me moria Sulfate 9 Marx Route: l 01:15: IVP, ONCE, Dosing Weight 58.636, kg, Priority: STAT, Start date: 03/14/12 20:15:00, Stop date: 03/14/12 20:15:00 Sodium 2011-0 No Hung Murillo 500 mL, Me moria Chloride - Marx Rate: 500 l 0.9% 23:45: ml/hr, [place] (Bolus) IV 00 Infuse 500 mL over: [...] Hung Murillo 5 mg, Me moria Sulfate - Marx Route: l 22:19: IVP, ONCE, Dosing Weight 58.636, kg, Priority: STAT, Start date: 03/14/12 17:19:00, Stop date: 03/14/12 17:19:00 pantoprazol 2011-0 No Hung Murillo 40 mg, Memoria e - Marx Route: l 22:19: IVP, ONCE, Dosing Weight 58.636, kg, For IV push reconstitu te with 10 ml 0.9% sodium chloride and push over at least 3 minutes, Priority: STAT, Start date: 03/14/12 17:19:00, Stop date: 03/14/12 17:19:00 Sodium 2011-0 No Hung Mruillo 500 mL, Me moria Chloride 9-24 Marx Rate: l 0.9% 22:19: 1,000 [place] (Bolus) IV 00 ml/hr, 500 mL Infuse [...] insulin No Blake 10 unit, Mem oria isophane-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 WORKER 6-11 Deangelo 0.1 mL, l H 02:00: [...] l tablet 02:00: Route: PO, H erm 00 Drug form: TAB, Bedtime, Start date: 11/29/11 21:00:00, Duration: 30 day, Stop date: 12/28/11 21:00:00 Geodon 0 No Blake 120 mg, 3 Mem oria [...] 2011- No Blake 14 unit, Mem oria isophane-HIGH WORKER 6-10 Deangelo 0.14 mL, l H 14:00: Brisa Route: [place] 00 SUB-Q, Drug form: INJ, Daily, Start [...] 30 day, Stop date: 12/28/11 9:00:00 benztropine No Blake 1 mg, 1 Memoria 6-10 [...] janice 6-10 Deangelo mL, Route: l 06:28: [facility] IVP, Drug Herm naeem 00 form: INJ, Q6H, Priority: STAT, Start date: 11/29/11 1:28:00, Duration: 30 day, Stop date: 12/29/11 0:00:00 Protonix 2011-0 No Blake 40 mg, Mendoza janice 6-10 Deangelo Route: IV, l 06:28: [facility] Drug form: Her braden 00 INJ, ONCE, [...] 1,000 mL 11-27 Rate: l 20:36: 1,000 [place] 00 ml/hr, Infuse over: 1 hr, Route: [...] Hughes-Jason 8 unit, M emoria 100 3-30 [place] SUB-Q, l units/mL 17:47: Eunice Q12H, 2 He rmann injectable 42 Pu vial, solution Substituti on Allowed, SOLN Novolin N Yes Hughes-Jason 10 unit, Memoria 100 3-30 [place] SUB-Q, l units/mL 17:46: Eunice Bedtime, H ermann subcutaneou 27 Pu 10 ml, s injection Substituti on Allowed, SUSP Novolin N Yes Hughes-Jason 14 unit, Memoria 100 3-30 [place] SUB-Q, l units/mL 17:44: Eunice QAM, 1 Her braden subcutaneou 37 Pu vial, s injection Substituti on Allowed, SUSP magnesium No Hughes-Jason 400 mg, 1 Memoria oxide 3-30 [place] tab, l 14:55: Dawson Route: PO, Her braden 00 Pu Drug form: TAB, ONCE, Priority: STAT, Start date: 09/18/11 9:55:00, Stop date: 09/18/11 9:55:00 Insulin 2011-0 No Hughes-Jason 8 unit, Mem oria regular 3-30 [place] 0.08 mL, l 14:22: Dawson Route: [place] 00 Pu SUB-Q, Drug form: SOLN, ONCE, Priority: STAT, Start date: 09/18/11 9:22:00, Stop date: 09/18/11 9:22:00 Lactated 2011-0 No Hughes-Jason 1,000 mL, Memoria Ringers 3-30 [place] Rate: l (Bolus) IV 14:16: [place] 1,000 He rmann 1,000 mL 00 Pu ml/hr, Infuse over: 1 hr, Route: IV, Total Volume: 1,000, [place]us Dose, Priority: STAT, Start date: 09/18/11 9:16:00, Duration: 1 doses or times, Stop date: 09/18/11 10:15:00 Sodium 0 No Hughes-Jason 1,000 mL, Me moria Chloride 3-30 [place] Rate: l 0.9% 14:06: Dawson 1,000 [place] (Bolus) IV 00 Pu ml/hr, 1000 mL Infuse over: 1 hr, Route: IV, kg, Total Volume: 1,000, [place]us Dose, Priority: STAT, Start date: 09/18/11 9:06:00, Duration: 1 doses or times, Stop date: 09/18/11 10:05:00 sulfamethox Yes Substituti Memoria azole 3-30 on Allowed l 14:04: Vin 58 Sodium 0 No Hughes-Jason 1,000 mL, Me moria Chloride 3-30 [place] Rate: l 0.9% 13:56: Dawson 1,000 [place] (Bolus) IV 00 Pu ml/hr, 1000 mL Infuse over: 1 hr, Route: IV, kg, Total Volume: 1,000, [place] Dose, Priority: STAT, Start date: 09/18/11 8:56:00, Duration: 1 doses or times, Stop date: 09/18/11 9:55:00 clindamycin No Eber L 300 mg, 2 Memoria 3-21 Anabelle cap, l 21:00: Route: PO, [place] 00 Drug form: CAP, Q8H, Start date: 09/09/11 16:00:00, Duration: 30 day, Stop date: 10/09/11 8:00:00 Colace 100 Yes Luna 100 mg, 1 Memoria mg oral 3-21 Amelia cap, PO, l capsule 18:47: [place] BID, 60 Her braden 19 cap, Substituti on Allowed, CAP clindamycin Yes Luna 300 mg, 2 Memoria 150 mg oral 3-21 Amelia cap, PO, l capsule 18:46: Zeeshan Q8H, 30 Her braden 55 cap, Substituti on Allowed, CAP Stevenson Yes Luna 1 tab, PO, Memoria 10/325 oral - Amelia Q4H, PRN, l tablet 18:46: [place] 30 tab, Herm naeem 36 Pain, Substituti on Allowed, Maintenanc e, TAB [place] No Hollie Donavan 1 tab, Mendoza janice [...] 3-19 Omidvar tab, l 15:30: Route: PO, [place] 00 Drug form: TAB, Daily, Start date: 09/07/11 10:30:00, Duration: 30 day, Stop date: 10/07/11 9:00:00 flumazenil No Gayle 0.2 mg, 2 Memoria 3-19 Josefina mL, Route: l 14:19: [place] IVP, Drug Jake n 00 form: INJ, PRN, PRN Benzodiaze pine Reversal, Initial dose, Start date: 09/07/11 9:19:00, Duration: 1 day, Stop date: 09/08/11 9:18:00 naloxone 2011- No Gayle 0.04 mg, Me moria 3-19 Josefina 0.1 mL, l 14:19: Gavin Route: [place] 00 IVP, Drug form: INJ, Q2MIN, PRN [...] ne 3- Josefina 0.25 mL, l 14:19: [place] Route: [place] 00 IVP, Drug form: INJ, Q5Min, PRN [...] 3-17 Omidvar tab, l 14:11: Route: PO, [place] Drug form: ERTAB, ONCE, Start date: 09/05/11 [...] Duration: 30 day, Stop date: 10/04/11 18:10:00 Stevenson 2012-0 No Mahammad 1 tab, Memori a [...] Kavon mL, Route: l 14:50: IVP, Drug [place] 00 form: INJ, ONCE, PRN Nausea & Vomiting, Start date: 09/04/11 9:50:00, Duration: 1 doses or times, Stop date: Limited # of times ropivacaine 2011-0 No Rosalino Dosing: Memoria 0.2% in NS 3-16 Kavon 10cc/hr, l - site 1 14:50: Route: [place] 400 mL 00 NERVE BLOCK, Start date: 09/04/11 9:50:00 400 mL, Duration: 30 day, Stop date: 10/04/11 9:49:00 naloxone No Rosalino 0.04 mg, Me moria 3-16 Kavon 0.1 mL, l 14:50: Route: [place] IVP, Drug form: INJ, Q2MIN, PRN Narcotic Reversal, Start date: 09/04/11 9:50:00, Duration: 30 day, Stop date: 10/04/11 9:49:00 Stevenson 2011- No [place] 1 tab, Memoria 10/325 oral -16 Omidvar Route: PO, l tablet 14:49: Drug Form: Nidia nn 00 TAB, Q4H, PRN Pain, Start date: 09/04/11 9:49:00, Stop date: 10/04/11 9:48:00 labetalol No Gregory F 5 mg, Mendoza janice 3-16 [place] Route: IV, l 14:40: ONCE, [place] Start date: 09/04/11 9:40:00, Stop date: 09/04/11 9:40:00 ondansetron No Hollie 4 mg, 2 Me moria 3-16 Beck mL, Route: l 13:37: [place] IVP, Drug Nidia nn 00 form: INJ, ONCE, PRN Nausea & Vomiting, Start date: 09/04/11 8:37:00 naloxone No Hollie 0.04 mg, Mendoza janice 3-16 Beck 0.1 mL, l 13:37: Hayden Route: [place] IVP, Drug form: INJ, Q2MIN, PRN Narcotic [...] 3-15 Anabelle mL, Route: l 16:00: IVPB, [place] 00 [id number], Start date: 09/03/11 11:00:00, Duration: 30 day, Stop date: 10/03/11 8:00:00 potassium 2011-0 No [place] 40 mEq, 2 M emoria chloride 3-15 Omidvar tab, l 13:39: Route: PO, Vin 00 Drug form: ERTAB, ONCE, Start date: 09/03/11 8:39:00, Stop date: 09/03/11 8:39:00 [place] 5/325 2011-0 No Rosalino 1 tab, M [...] 3-14 Anabelle cap, l 17:00: Route: PO, [place] 00 Drug form: ERCAP, Daily, Give qAM after today's dose., Start date: 09/02/11 12:00:00, Duration: 30 day, Stop date: 10/02/11 9:00:00 Stevenson 5/325 2011-0 No Rosalino 1 tab, M [...] Route: l 14:00: IVPB, Drug form: INJ, [id number], Start date: 09/02/11 9:00:00, Duration: 30 day, Stop date: 10/01/11 21:00:00 clindamycin 2012-0 No Eber L 600 mg, 4 Memoria (SCIP) 3-14 Anabelle mL, Route: l 10:00: IVPB, [place] 00 [id number], Start date: 09/02/11 5:00:00, Duration: 3 doses or times, Stop date: 09/02/11 21:00:00 clindamycin No Yury 600 mg, 4 Memoria (SCIP) 3-14 Silverio mL, Route: l 04:00: [place]ally IVPB, Vin 00 [id number], Start date: 09/01/11 23:00:00, Duration: 3 doses or times, Stop date: 09/02/11 15:00:00 insulin No [place] 15 unit, Mendoza janice isophane-HIGH WORKER 3-14 Omidvar 0.15 mL, l H 02:00: Route: [place] 00 SUB-Q, Drug form: INJ, Q12H, Start date: 09/01/11 21:00:00, Stop date: 10/01/11 9:00:00 labetalol No Mariaelena-Corea 5 mg, Me moria 3-14 Barbra Route: l 01:07: Feliciano IVP, [place] 00 Q5Min, PRN Elevated BP, Start date: 09/01/11 20:07:00, Duration: 5 doses or times, Stop date: Limited # of times hydrALAZINE No Mariaelena-Corea 5 mg, Memoria 3-14 Barbra Route: l 01:07: Feliciano IVP, [place] 00 Q5Min, PRN Elevated BP, Start date: [...] 3-14 Barbra Route: l 01:07: Feliciano IVP, [place] 00 Q2MIN, PRN Narcotic Reversal, Start date: 09/01/11 20:07:00, Duration: 8 doses or times, Stop date: Limited # of times flumazenil No Mariaelena-Corea 0.2 mg, Memoria 3-14 Barbra Route: l 01:07: Feliciano IVP, PRN, PRN Benzodiaze pine Reversal, Initial dose, Start date: 09/01/11 20:07:00, Duration: 30 day, Stop date: 10/01/11 20:06:00 ondansetron No Mariaelena-Corea 4 mg, Memoria 3-14 Barbra Route: l 01:07: Feliciano IVP, ONCE, PRN Nausea & Vomiting, Start date: 09/01/11 20:07:00 vancomycin No Mele 1 gm, Mem oria 3-14 Gauvain Route: l 01:00: IVPB, Drug form: INJ, [id number], Start date: 09/01/11 20:00:00, Duration: 30 day, [...] Route: l 00:00: IVPB, Drug form: INJ, [id number], Start date: 09/01/11 19:00:00, Duration: 30 day, Stop date: 10/01/11 7:00:00 insulin 2011- No Missael 6 unit, Memori a aspart 3-13 Movva 0.06 mL, l 23:23: Route: [place] 00 SUB-Q, Drug form: SOLN, TID-Before Meals, PRN Blood Glucose Results, Start date: 09/01/11 18:23:00, Duration: 30 day, Stop date: 10/01/11 18:22:00 glucagon 2011-0 No Missael 1 mg, Memoria 3-13 Movva Route: IM, l 23:23: Drug form: [place] 00 PDR/INJ, PRN, PRN Blood Glucose Results, Start date: 09/01/11 18:23:00, Duration: 30 day, Stop date: 10/01/11 18:22:00 Dextrose 2011-0 No Missael 25 gm, 50 Mem oria 50% Syringe 3-13 Movva mL, Route: l 23:23: IVP, Drug [place] Form: INJ, PRN, PRN Blood Glucose Results, Start date: 09/01/11 18:23:00, Duration: 30 day, Stop date: 10/01/11 18:22:00 morphine 2011-0 No Daja Shannan 2 mg, 1 M emoria Sulfate 3-13 Beni mL, Route: l 21:14: IVP, Drug [place] form: INJ, Q4H, PRN Severe Pain, Start date: 09/01/11 16:14:00, Stop date: 10/01/11 16:13:00 Lactated 2011-0 No Cesar 1,000 mL, Me moria Ringers IV 3-13 Manuel [place] Rate: 100 l 1,000 mL 19:03: ml/hr, [place] 00 Infuse over: 10 hr, Route: IV, [...] 09/01/11 10:28:00, Stop date: 09/01/11 10:28:00 Sodium No [place] 1,000 mL, Memori a Chloride [...] L 1,000 mL, M emoria Chloride 3-13 [place] Rate: l 0.9% 10:41: 1,000 Vin (Bolus) IV 00 ml/hr, 1000 mL Infuse over: 1 hr, Route: IV, Dosing Weight 68.182 kg, Total Volume: 1,000, Bolus Dose, Priority: STAT, Start date: 09/01/11 5:41:00, Duration: 1 doses or times, Stop date: 09/01/11 6:40:00 ondansetron 2011-0 No Bee L 4 mg, Memoria 3-13 [place] Route: l 09:06: IVP, Drug form: INJ, ONCE, Priority: STAT, Start date: 09/01/11 4:06:00, Stop date: 09/01/11 4:06:00 morphine 2011-0 No Bee L 4 mg, Mem oria Sulfate 3-13 [place] Route: l 09:06: IVP, ONCE, Priority: STAT, Start date: 09/01/11 4:06:00, Stop date: 09/01/11 4:06:00 Sodium 2011-0 No Bee L 1,000 mL, M emoria Chloride 3-13 [place] Rate: l 0.9% 08:42: 1,000 [place] (Bolus) IV 00 ml/hr, 1000 mL Infuse over: 1 hr, Route: IV, Dosing Weight 68.182 kg, Total Volume: 1,000, Bolus Dose, Priority: STAT, Start date: 09/01/11 3:42:00, Duration: 1 doses or times, Stop date: 09/01/11 4:41:00 Insulin 2011- No Bee L 8 unit, Me moria regular 08-31 Cruz[place] 0.08 mL, l 08:30: Route: [place] IVP, Drug form: SOLN, ONCE, Priority: STAT, Start date: 09/01/11 3:30:00, Stop date: 09/01/11 3:30:00 Sodium 2011-0 No Bee L 1,000 mL, M emoria Chloride 3-13 [place] Rate: l 0.9% 07:29: 1,000 [place] (Bolus) IV 00 ml/hr, 1,000 mL Infuse [...] Substituti on Allowed, TAB lisinopril Yes Velásquez Noma 40 mg, 2 Memoria 20 mg oral 3-04 Akmal tab, PO, l tablet 14:44: Daily, 60 Ajke n 39 tab, 3, 3, Substituti on [...] Akmal mL, Route: l 12:26: IVPB, Drug [place] form: INJ, ONCE, Total dose = 2 [...] Rodriguez 10 mL, l 16:25: Ahmed Route: [place] 00 IVPB, ONCE, Start date: 08/22/11 10:25:00, [...] Akmal mL, Route: l 13:26: IVPB, Drug [place] 00 form: INJ, ONCE, Total dose = [...] 3-02 Akmal tab, l 15:00: Route: PO, [place] Drug form: TAB, Daily, Start date: 08/21/11 [...] 30 day, Stop date: 09/19/11 11:14:00 insulin 2011- No Yury 10 unit, Mem oria isophane-HIGH WORKER 08-19 [place] Route: l H 16:00: River[place] SUB-Q, Nidia nn 00 ONCE, Start date: 08/20/11 10:00:00, Stop date: 08/20/11 10:00:00 trazodone 2011- Yes 200 mg, 2 Mem oria 100 mg oral 3-01 tab, PO, l tablet 15:37: Bedtime, [place] 27 90 tab, Substituti on Allowed, TAB benztropine Yes 1 mg, 1 Mem oria 1 mg oral 3-01 tab, PO, l tablet 15:35: BID, 60 [place] 25 tab, Substituti on Allowed, TAB Geodon 60 2011- Yes 120 mg, 2 Mem oria mg oral 3-01 cap, PO, l capsule 15:35: Bedtime, Jake n 12 60 cap, Substituti on Allowed, CAP insulin 2011- No Yury 10 unit, Mem oria isophane-HIGH WORKER 3- [place] Route: l H 15:00: Rivero [...] regular 3- Akmal SUB-Q, l 09:28: BID, [place] 23 Substituti on Allowed insulin 2011- No 10 unit, Memori a isophane-HIGH WORKER 3- SUB-Q, l H 09:26: BID, Vin 18 Substituti on Allowed NS 1,000 mL No Velásquez Noam 1,000 mL, Memoria 3 Akmal Rate: 150 l 09:06: ml/hr, Vin [...] 2011- No Yury 18 unit, Mem oria isophane-HIGH WORKER 3-01 [place] 0.18 mL, l H 08:58: [...] No Hughes-Jason 4 mg, M emoria 08-19 [place] Route: l 07:42: [place] IVP, Drug Herm naeem 00 Pu form: INJ, ONCE, Priority: STAT, Start date: 08/20/11 1:42:00, Stop date: 08/20/11 1:42:00 GI cocktail No Hughes-Jason 30 ml, Memoria 08-19 [place] Route: PO, l 05:12: [place] Drug Form: Her braden 00 Pu SUSP, ONCE, STAT, Start date: 08/19/11 23:12:00, Stop date: 08/19/11 23:12:00 ondansetron 2011- No Hughes-Jason 4 mg, M emoria 3- [place] Route: PO, l 05:10: [place] Drug form: Her braden 00 Pu TABDIS, ONCE, Priority: STAT, Start date: 08/19/11 23:10:00, Stop date: 08/19/11 23:10:00 Lactated 2011-0 No Hughes-Jason 1,000 mL, Memoria Ringers 08-19 [place] Rate: l (Bolus) IV 05:10: [place] 1,000 He rmann 1000 mL 00 Pu ml/hr, Infuse over: 1 hr, Route: IV, Total Volume: 1,000, [place] Dose, Priority: STAT, Start date: 08/19/11 23:10:00, Duration: 1 doses or times, Stop date: 08/20/11 0:09:00 Insulin 2011- No Hughes-Jason 7 unit, Mem oria regular 08-19 [place] 0.07 mL, l 04:15: Dawson Route: [place] 00 Pu SUB-Q, Drug form: SOLN, ONCE, Priority: STAT, Start date: 08/19/11 22:15:00, Stop date: 08/19/11 22:15:00 Geodon 60 2011-0 No Yury 60 mg, 1 M emoria mg oral 2-29 [place] cap, PO, l capsule 23:24: Rivero BID, 180 [place] 43 cap, Substituti on Allowed, CAP trazodone [...] Wong Route: IV, l 21:57: Pooja ONCE, [place] 00 Start date: 08/19/11 15:57:00, Stop date: [...] 2020-02-20 Completed [facility] Vaccine 00:00:00 [facility] Influenza Virus 2020-02-20 Completed [facility] Vaccine 00:00:00 [facility] TDAP (ADACEL) VACCINE 2019-07-25 Completed Uni versity of 00:00:00 [facility] Meningococcal B, OMV 2019-07-25 Completed Univ ersity of 00:00:00 [facility] Meningococcal 2019-07-25 Completed [facility] of Polysaccharide 00:00:00 [facility] (groups A, C, Y and Branc h W-135) conjugate vaccine (MCV4P) TDAP (ADACEL) VACCINE 2019-07-25 Completed Uni versity of 00:00:00 [facility] Meningococcal B, OMV 2019-07-25 Completed Univ ersity of 00:00:00 [facility] Meningococcal 2019-07-25 Completed University of Polysaccharide 00:00:00 [place] [facility] (groups A, C, Y and Branc h W-135) conjugate vaccine (MCV4P) Influenza Virus 2019-02-27 Completed [facility] Vaccine Quad .5 mL IM 00:00:00 [facility] 6+ MO Branch Influenza Virus 2019-02-27 Completed [facility] of Vaccine Quad .5 mL IM 00:00:00 [facility] 6+ MO Branch hepatitis B vaccine 2018-04-07 Completed Memor ial [place] 00:00:00 influenza virus 2018-03-29 Completed [facility] [place] vaccine, inactivated 00:00:00 hepatitis B vaccine 2017-11-26 Completed Memor ial [place] 00:00:00 influenza virus 2017-10-25 Completed [facility] [place] vaccine, inactivated 00:00:00 pneumococcal 2017-10-25 Completed [facility] braden 23-valent vaccine 00:00:00 Influenza Virus 2017-06-22 Completed Universit y of Vaccine Quad IM 3+ 00:00:00 [facility] Influenza Virus 2017-06-22 Completed Universit y of Vaccine Quad IM 3+ 00:00:00 [facility] Influenza Virus 2016-04-02 Completed [facility]it [facility] of Vaccine Quad IM 3+ 00:00:00 [facility] Influenza Virus 2016-04-02 Completed [facility]it [facility] of Vaccine Quad IM 3+ 00:00:00 [facility] Influenza Virus 2015-10-28 Completed [facility]it [facility] of Vaccine Quad IM 3+ 00:00:00 [facility] Influenza Virus 2015-10-28 Completed [facility] of Vaccine Quad IM 3+ 00:00:00 [facility] Vital Signs Vital Name Observation Time Observation [...] 16:33:00 171 mm[Hg] Univer sity of pressure [facility] Diastolic blood 2020-06-27 16:33:00 98 mm[Hg] Unive rsity of pressure [facility] Heart rate 2020-06-27 16:33:00 71 /min [facility] Respiratory rate 2020-06-27 16:29:00 19 /min [facility] Body height 2020-06-27 16:29:00 154.9 cm [facility] Body weight 2020-06-27 16:29:[address] [facility] BMI 2020-06-27 16:29:00 32.20 kg/m2 [facility] Oxygen saturation in 2020-06-27 16:29:00 99 /min [facility] Arterial blood by [facility] Pulse oximetry Branch Height/Length 2021-07-08 11:50:13 154.9 cm Measured Weight Dosing 2021-07-08 11:50:13 85.00 kg Height/Length 2021-07-08 11:47:31 154.9 cm Measured Weight Dosing 2021-07-08 11:47:31 85.00 kg Height/Length 2021-07-08 11:47:20 154.9 cm Measured Weight Dosing 2021-07-08 11:47:20 85.00 kg Systolic blood 2021-07-08 19:43:00 189 mm[Hg] [facility] pressure Diastolic blood 2021-07-08 19:43:00 104 mm[Hg] [facility] pressure Heart rate 2021-07-08 18:56:00 74 /min [facility] Body temperature 2021-07-08 18:56:00 36.39 Cathleen [facility] Body height 2021-07-08 18:56:00 157.5 cm [facility] Body weight 2021-07-08 18:56:00 72.938 kg [facility] BMI 2021-07-08 18:56:00 29.41 kg/m2 [facility] Oxygen saturation in 2021-07-08 18:56:00 100 /min [facility] Arterial blood by Pulse oximetry Respiratory rate 2021-06-18 16:36:00 11 /min [facility] Systolic (mm Hg) 2021-01-29 20:03:00 Mendoza rial [place] Diastolic (mm Hg) 2021-01-29 20:03:00 Mem orial [place] Systolic (mm Hg) 2021-01-29 19:40:00 Mendoza rial [place] Diastolic (mm Hg) 2021-01-29 19:40:00 Mem orial [place] Systolic (mm Hg) 2021-01-29 18:05:00 Mendoza rial [place] Diastolic (mm Hg) 2021-01-29 18:05:00 Mem orial [place] Respitory Rate 2021-01-29 16:55:00 Memori al [place] Temperature Oral (F) 2021-01-29 16:45:00 97.3 F [facility] [place] Respitory Rate 2021-01-29 16:45:00 Memori al [place] Respitory Rate 2021-01-29 16:30:00 Memori al [place] Temperature Oral (F) 2021-01-29 13:10:00 97.6 F Memorial [place] Systolic (mm Hg) 2021-01-27 05:00:00 Mendoza rial [place] Diastolic (mm Hg) 2021-01-27 05:00:00 Mem orial [place] Systolic (mm Hg) 2021-01-27 04:00:00 Mendoza rial Vin Diastolic (mm Hg) 2021-01-27 04:00:00 Mem orial [place] Systolic (mm Hg) 2021-01-27 03:00:00 Mendoza rial [place] Diastolic (mm Hg) 2021-01-27 03:00:00 Mem orial [place] Respitory Rate 2021-01-26 19:00:00 Memori al [place] Respitory Rate 2021-01-26 18:00:00 Memori al [place] Respitory Rate 2021-01-26 17:00:00 Memori al [place] Temperature Oral (F) 2021-01-22 13:00:00 97.6 F [facility] [place] Height 2021-01-21 18:25:00 149.86 cm [facility] [place] Weight 2021-01-21 18:25:00 Memorial [place] BMI Calculated 2021-01-21 18:25:00 Memori al [place] Height 2021-01-21 17:09:00 157.48 cm [facility] [place] Height 2021-01-21 13:09:00 157.48 cm [facility] [place] Weight 2021-01-21 13:09:00 [facility] [place] BMI Calculated 2021-01-21 13:09:00 Memori al Vin Heart Rate 2021-01-21 12:50:00 [facility] [place] Systolic (mm Hg) 2020-12-24 15:43:00 Mendoza rial [place] Diastolic (mm Hg) 2020-12-24 15:43:00 Mem orial [place] Heart Rate 2020-12-24 15:43:00 Memorial [place] Height 2020-12-24 15:43:00 154.94 cm [facility] [place] Weight 2020-12-24 15:43:00 Memorial Vin BMI Calculated 2020-12-24 15:43:00 Memori al [place] Systolic (mm Hg) 2016-07-30 14:00:00 Mendoza rial [place] Diastolic (mm Hg) 2016-07-30 14:00:00 Mem orial [place] Respitory Rate 2016-07-30 14:00:00 Memori al Vin Heart Rate 2016-07-30 14:00:00 [facility] [place] Temperature Oral (F) 2016-07-30 14:00:00 97.4 F [facility] [place] Systolic (mm Hg) 2016-07-30 10:45:00 Mendoza rial [place] Diastolic (mm Hg) 2016-07-30 10:45:00 Mem orial Vin Heart Rate 2016-07-30 10:45:00 Memorial [place] Temperature Oral (F) 2016-07-30 10:45:00 97.2 F [facility] [place] Respitory Rate 2016-07-30 10:45:00 Memori al Vin Heart Rate 2016-07-30 06:35:00 [facility] [place] Temperature Oral (F) 2016-07-30 06:35:00 97.0 F [facility] [place] Respitory Rate 2016-07-30 06:35:00 Memori al [place] Systolic (mm Hg) 2016-07-30 06:35:00 Mendoza rial [place] Diastolic (mm Hg) 2016-07-30 06:35:00 Mem orial Vin Weight 2016-07-24 02:13:00 Memorial Vin BMI Calculated 2016-07-24 02:13:00 Memori al [place] Height 2016-07-24 02:13:00 160.02 cm [facility] [place] Respitory Rate 2016-06-15 15:00:00 Memori al [place] Systolic (mm Hg) 2016-06-15 15:00:00 Mendoza rial [place] Diastolic (mm Hg) 2016-06-15 15:00:00 Mem orial [place] Respitory Rate 2016-06-15 14:00:00 Memori al [place] Systolic (mm Hg) 2016-06-15 14:00:00 Mendoza rial [place] Diastolic (mm Hg) 2016-06-15 14:00:00 Mem orial Vin Respitory Rate 2016-06-15 13:29:00 Memori al [place] Systolic (mm Hg) 2016-06-15 13:29:00 Mendoza rial [place] Diastolic (mm Hg) 2016-06-15 13:29:00 Mem orial [place] Temperature Oral (F) 2016-06-14 10:56:00 97.1 F [facility] [place] Temperature Oral (F) 2016-06-14 06:55:00 97.1 F [facility] [place] Temperature Oral (F) 2016-06-12 10:00:00 96.8 F [facility] [place] Weight 2016-06-11 04:25:00 [facility] [place] Height 2016-06-11 04:25:00 160.02 cm [facility] [place] BMI Calculated 2016-06-11 04:25:00 Memori al [place] Heart Rate 2016-06-11 02:04:00 [facility] [place] Heart Rate 2016-06-11 00:00:00 [facility] [place] Heart Rate 2016-06-10 20:30:00 [facility] [place] Weight 2016-06-10 16:04:00 [facility] [place] BMI Calculated 2016-06-10 16:04:00 Memori al [place] Height 2016-06-10 16:04:00 160.02 cm [facility] [place] Temperature Oral (F) 2014-06-26 15:12:00 98.0 F [facility] [place] Systolic (mm Hg) 2014-06-26 15:12:00 Mendoza rial Vin Heart Rate 2014-06-26 15:12:00 [facility] [place] Diastolic (mm Hg) 2014-06-26 15:12:00 Mem orial [place] Respitory Rate 2014-06-26 15:12:00 [facility] Systolic (mm Hg) 2014-06-26 13:53:00 [facility] [place] Diastolic (mm Hg) 2014-06-26 13:53:00 [facility] [place] Respitory Rate 2014-06-26 13:53:00 [facility] Temperature Oral (F) 2014-06-26 13:53:00 98.0 F [facility] Temperature Oral (F) 2014-06-26 12:37:00 98.2 F [facility] Respitory Rate 2014-06-26 12:37:00 [facility] [place] Systolic (mm Hg) 2014-06-26 12:37:00 [facility] [place] Diastolic (mm Hg) 2014-06-26 12:37:00 [facility] Heart Rate 2014-06-26 09:21:00 [facility] Heart Rate 2014-06-26 06:08:00 [facility] Height 2014-06-26 05:35:00 154.94 cm [facility] Weight 2014-06-26 05:35:00 [facility] BMI Calculated 2014-06-26 05:35:00 [facility] Respitory Rate 2013-04-15 06:10:00 [facility] Diastolic (mm Hg) 2013-04-15 06:10:00 [facility] [place] Heart Rate 2013-04-15 06:10:00 [facility] Systolic (mm Hg) 2013-04-15 06:10:00 [facility] [place] Temperature Oral (F) 2013-04-15 06:10:00 98.7 F [facility] Respitory Rate 2013-04-15 05:37:00 [facility] Diastolic (mm Hg) 2013-04-15 05:37:00 [facility] Systolic (mm Hg) 2013-04-15 05:37:00 [facility] [place] Temperature Oral (F) 2013-04-15 05:37:00 98.2 F [facility] Heart Rate 2013-04-15 05:37:00 [facility] Height 2013-04-15 02:06:00 160.02 cm [facility] Weight 2013-04-15 02:06:00 [facility] Temperature Oral (F) 2013-04-15 02:06:00 98.6 F [facility] Respitory Rate 2013-04-15 02:06:00 Memori al Vin Heart Rate 2013-04-15 02:06:00 [facility] Diastolic (mm Hg) 2013-04-15 02:06:00 Mem orial Vin Systolic (mm Hg) 2013-04-15 02:06:00 [facility] [place] Weight 2012-03-14 21:33:00 [facility] Systolic (mm Hg) 2011-12-01 00:33:00 Mendoza rial Vin Respitory Rate 2011-12-01 00:33:00 [facility] [place] Heart Rate 2011-12-01 00:33:00 [facility] Diastolic (mm Hg) 2011-12-01 00:33:00 Mem orial Vin Temperature Oral (F) 2011-12-01 00:33:00 99.6 F [facility] Diastolic (mm Hg) 2011-11-30 21:00:00 [facility] [place] Heart Rate 2011-11-30 21:00:00 [facility] Respitory Rate 2011-11-30 21:00:00 Memori al Vin Systolic (mm Hg) 2011-11-30 21:00:00 [facility] [place] Temperature Oral (F) 2011-11-30 21:00:00 99.8 F [facility] Respitory Rate 2011-11-30 16:30:00 [facility] [place] Systolic (mm Hg) 2011-11-30 16:30:00 Mendoza rial Vin Diastolic (mm Hg) 2011-11-30 16:30:00 Mem orial Vin Heart Rate 2011-11-30 16:30:00 [facility] Vin Temperature Oral (F) 2011-11-30 16:30:00 99.8 F [facility] Weight 2011-11-29 11:40:00 [facility] Height 2011-11-29 11:40:00 157.48 cm [facility] Weight 2011-11-28 17:16:00 [facility] Weight 2011-09-18 13:30:00 [facility] Height 2011-09-18 13:30:00 154.94 cm [facility] Heart Rate 2011-09-09 13:31:00 [facility] Systolic (mm Hg) 2011-09-09 13:02:00 Mendoza rial Vin Diastolic (mm Hg) 2011-09-09 13:02:00 [facility] [place] Respitory Rate 2011-09-09 13:02:00 Memori al Vin Temperature Oral (F) 2011-09-09 13:02:00 97.5 F [facility] Diastolic (mm Hg) 2011-09-09 08:00:00 Mem orial Vin Heart Rate 2011-09-09 08:00:00 [facility] Vin Temperature Oral (F) 2011-09-09 08:00:00 98.6 F [facility] Respitory Rate 2011-09-09 08:00:00 [facility] Systolic (mm Hg) 2011-09-09 08:00:00 [facility] [place] Respitory Rate 2011-09-09 04:55:00 [facility] Diastolic (mm Hg) 2011-09-09 04:55:00 [facility] [place] Systolic (mm Hg) 2011-09-09 04:55:00 [facility] [place] Heart Rate 2011-09-09 04:55:00 [facility] Temperature Oral (F) 2011-09-09 00:55:00 98.7 F [facility] Weight 2011-09-01 19:59:00 [facility] Height 2011-09-01 19:59:00 154.94 cm [facility] Height 2011-09-01 07:01:00 154.94 cm [facility] Weight 2011-09-01 07:01:00 [facility] Respitory Rate 2011-08-23 18:00:00 Mem[facility] Vin Heart Rate 2011-08-23 18:00:00 [facility] Systolic (mm Hg) 2011-08-23 18:00:00 Mendoza rial Vin Diastolic (mm Hg) 2011-08-23 18:00:00 Mem orial Vin Temperature Oral (F) 2011-08-23 18:00:00 97.7 F [facility] Heart Rate 2011-08-23 14:24:00 [facility] Temperature Oral (F) 2011-08-23 14:24:00 98.2 F [facility] Diastolic (mm Hg) 2011-08-23 14:24:00 [facility] [place] Systolic (mm Hg) 2011-08-23 14:24:00 Mendoza rial Vin Respitory Rate 2011-08-23 14:24:00 [facility] Systolic (mm Hg) 2011-08-23 11:15:00 Mendoza rial Vin Diastolic (mm Hg) 2011-08-23 11:15:00 [facility] [place] Temperature Oral (F) 2011-08-23 11:00:00 98.3 F [facility] Heart Rate 2011-08-23 11:00:00 [facility] Respitory Rate 2011-08-22 22:00:00 Brandon aldana [place] Height 2011-08-20 09:12:00 154.94 cm [facility] Weight 2011-08-20 09:12:00 [facility] Height 2011-08-19 20:28:00 154.94 cm [facility] Weight 2011-08-19 20:28:00 [facility] Procedures Procedure Date / Time Performing Clinician Source Performed POC GLUCOSE 2021-06-18 17:00:00 Aurelio Schmuacher Ho spital HEPATITIS B SURFACE 2021-06-18 14:07:00 [facility] ANTIGEN VANCOMYCIN LEVEL, RANDOM 2021-06-18 13:44:00 [facility] HC COMPLETE BLD COUNT 2021-06-18 13:44:00 [facility] W/AUTO DIFF BASIC METABOLIC PANEL 2021-06-18 11:27:00 [facility] ESTIMATED GFR 2021-06-18 11:27:00 Aurelio Schumacher [facility] POC GLUCOSE 2021-06-18 08:07:00 RenettaAurelio [facility] HEMODIALYSIS 2021-06-18 06:16:53 Bill Cooper Ho spital POC GLUCOSE 2021-06-18 01:26:00 Aurelio Schumacher [facility] POC GLUCOSE 2021-06-17 21:58:00 Aurelio Schumacher [facility] HEMODIALYSIS 2021-06-17 18:25:45 Bill Cooper [facility] POC GLUCOSE 2021-06-17 17:36:00 RenettaFaiza [facility] POC GLUCOSE 2021-06-17 13:51:00 RenettaAurelio [facility] BASIC METABOLIC PANEL 2021-06-17 11:16:00 [facility] HC COMPLETE BLD COUNT 2021-06-17 11:16:00 [facility] W/AUTO DIFF ESTIMATED GFR 2021-06-17 11:16[facility] 2021-06-17 02:50:00 [facility] CONSULT TO OSTOMY CARE 2021-06-17 00:31:48 [facility] NURSE HC COMPLETE BLD COUNT 2021-06-16 23:31:00 [facility] W/AUTO DIFF BASIC METABOLIC PANEL 2021-06-16 23:31:00 [facility] ESTIMATED GFR 2021-06-16 23:31:00 [facility] POC GLUCOSE 2021-06-16 23:19:00 [facility] OR [place] < 1 HOUR 2021-06-16 22:49:00 Mando Diaz [facility] ANAEROBIC CULTURE 2021-06-16 22:36:00 [facility] FUNGUS CULTURE 2021-06-16 22:36:00 Mando Diaz [facility] AEROBIC CULTURE 2021-06-16 22:36:00 Mando Diaz [facility] GRAM STAIN 2021-06-16 22:36:00 [facility] 2021-06-16 21:30:[address] [facility] SUPRAGLOTTIC AIRWAY AORTOGRAPHY, POSSIBLE 2021-06-16 21:17:00 Mando Diaz [facility] ANGIOPLASTY Diaz-Hsi POC , URINE 2021-06-16 20:46:00 [facility] POT[facility] 2021-06-16 17:28:00 Isabell Dickerson POC GLUCOSE 2021-06-16 11:39:00 [facility] BASIC METABOLIC PANEL 2021-06-16 10:08:00 [facility] HC COMPLETE BLD COUNT 2021-06-16 10:08:00 [facility] W/AUTO DIFF PROTHROMBIN TIME WITH INR 2021-06-16 10:08:00 Char Viramontes [facility] PARTIAL THROMBOPLASTIN 2021-06-16 10:08:00 Char Viramontes [facility] TIME (PTT) TYPE AND SCREEN 2021-06-16 10:08:00 Char Viramontes H ospital ESTIMATED GFR 2021-06-16 10:08:00 [facility] POC GLUCOSE 2021-06-16 01:59:00 [facility] POC GLUCOSE 2021-06-15 22:58:00 [facility] COVID-19 QUALITATIVE 2021-06-15 19:29:00 Char Viramontes [facility] RT-PCR POC GLUCOSE 2021-06-15 17:42:00 [facility] HEMODIALYSIS 2021-06-15 16:17:[address] [facility] POC GLUCOSE 2021-06-15 15:41:00 [facility] POC GLUCOSE 2021-06-15 13:44:00 [facility] POC GLUCOSE 2021-06-15 13:00:00 [facility] ECG 12-LEAD 2021-06-15 12:48:21 Leni Barker Ho spital HC COMPLETE BLD COUNT 2021-06-15 11:42:[address] [facility] W/AUTO DIFF BASIC METABOLIC PANEL 2021-06-15 11:42:[address] [facility] ESTIMATED GFR 2021-06-15 11:42:00 [facility] POC GLUCOSE 2021-06-15 01:31:00 [facility] US DUPLEX ARTERIAL LOWER 2021-06-14 21:55:33 [facility] EXTREMITY RIGHT POC GLUCOSE 2021-06-14 21:51:00 [facility] POC GLUCOSE 2021-06-14 17:36:00 [facility] POC GLUCOSE 2021-06-14 13:30:00 [facility] POC GLUCOSE 2021-06-14 13:29:00 [facility] HC COMPLETE BLD COUNT 2021-06-14 10:13:[address] [facility] W/AUTO DIFF BASIC METABOLIC PANEL 2021-06-14 10:13:[address] [facility] ESTIMATED GFR 2021-06-14 10:13:00 [facility] POC GLUCOSE 2021-06-14 02:45:00 [facility] POC GLUCOSE 2021-06-13 21:47:00 [facility] POC GLUCOSE 2021-06-13 20:46:00 [facility] CBC WITH PLATELET AND 2021-06-13 16:10:00 [facility] DIFFERENTIAL COMPREHENSIVE METABOLIC 2021-06-13 16:10:00 [facility] PANEL ESTIMATED GFR 2021-06-13 16:10:00 [facility] HEMODIALYSIS 2021-06-13 15:26:35 [facility] POC GLUCOSE 2021-06-13 14:30:00 [facility] VANCOMYCIN LEVEL, RANDOM 2021-06-13 10:59:00 Juwan You [facility] POC GLUCOSE 2021-06-13 10:40:00 [facility] POC GLUCOSE 2021-06-13 02:28:00 [facility] POC GLUCOSE 2021-06-13 00:16:00 [facility] POC GLUCOSE 2021-06-12 23:31:00 [facility] POC GLUCOSE 2021-06-12 23:14:00 [facility] POC GLUCOSE 2021-06-12 18:19:00 [facility] POC GLUCOSE 2021-06-12 14:37:00 [facility] POC GLUCOSE 2021-06-12 14:01:00 [facility] POC GLUCOSE 2021-06-12 03:03:00 Holden Nagel spital [facility] CT HEAD WO CONTRAST 2021-06-12 00:53:00 Robe [facility] Ramírez POC GLUCOSE 2021-06-11 18:08:00 Holden Nagel Ho spital Ramírez POC GLUCOSE 2021-06-11 13:39:00 Nagel, Holden Whyte Ho spital [place] HEMODIALYSIS 2021-06-11 12:38:38 [facility] POC GLUCOSE 2021-06-11 02:01:00 Nagel Hloden Whyte spital Ramírez POC GLUCOSE 2021-06-10 22:15:00 Holden Nagel Ho spital Ramírez POC GLUCOSE 2021-06-10 17:39:00 Holden Nagel spital Ramírez POC GLUCOSE 2021-06-10 16:05:00 Holden Nagel spital Ramírez TISSUE CULTURE 2021-06-10 15:08:00 Juwan You spital GRAM STAIN 2021-06-10 15:08:00 Juwan You spital ANAEROBIC CULTURE 2021-06-10 15:04:00 Kenyatta [facility] FUNGUS CULTURE 2021-06-10 15:04:00 Juwan You spital AEROBIC CULTURE 2021-06-10 15:04:00 Juwan You spital AFB CULTURE 2021-06-10 15:04:00 Juwan You spital GRAM STAIN 2021-06-10 15:04:00 Juwan You spital AFB STAIN 2021-06-10 15:04:[address] AN ELECTIVE 2021-06-10 14:26:00 Sofi Roach spital SUPRAGLOTTIC AIRWAY Marquita INCISION AND DRAINAGE, 2021-06-10 14:26:[address] [facility] LOWER EXTREMITY HC COMPLETE BLD COUNT 2021-06-10 10:20:00 [facility] W/AUTO DIFF BASIC METABOLIC PANEL 2021-06-10 10:20:00 [facility] PROTHROMBIN TIME WITH INR 2021-06-10 10:20:00 Kenyatta [facility] PARTIAL THROMBOPLASTIN 2021-06-10 10:20:00 [facility] TIME (PTT) TYPE AND SCREEN 2021-06-10 10:20:00 Robe, Holden Whyte Ho spital Ramírez ESTIMATED GFR 2021-06-10 10:20:00 Kenyatta [place] Isabell Ferrara spital POC GLUCOSE 2021-06-10 03:11:00 Nagel, Holden Whyte Ho spital Ramírez POC GLUCOSE 2021-06-10 01:30:00 Nagel, Holdentrip Whyte Ho spital Ramírez POC GLUCOSE 2021-06-09 22:22:00 Nagel, Holden Whyte Ho spital Ramírez POC GLUCOSE 2021-06-09 13:55:00 Nagel, Holden Whyte Ho spital Ramírez HEMODIALYSIS 2021-06-09 13:20:01 [facility] VANCOMYCIN LEVEL, RANDOM 2021-06-09 11:46:00 [facility] POC GLUCOSE 2021-06-09 02:06:00 Holden Nagel spital Ramírez POC GLUCOSE 2021-06-08 22:23:00 Robe Holdentrip Whyte spital Ramírez POC GLUCOSE 2021-06-08 17:53:00 Robe [facility] sp[facility] Ramírez HC COMPLETE BLD COUNT 2021-06-08 16:06:00 [facility] W/AUTO DIFF POC GLUCOSE 2021-06-08 13:56:00 Holden Nagel spital Ramírez URINE CULTURE 2021-06-08 03:56:00 Holden Nagel spital Ramírez URINALYSIS SCREEN AND 2021-06-08 03:32:00 [facility] MICROSCOPY, WITH REFLEX TO CULTURE POC GLUCOSE 2021-06-08 01:15:00 Holden Nagel Ho spital Ramírez POC GLUCOSE 2021-06-07 22:07:00 Holden Nagel Ho spital Ramírez POC GLUCOSE 2021-06-07 18:01:00 Holden Nagel spital Ramírez BASIC METABOLIC PANEL 2021-06-07 14:15:00 [facility] ESTIMATED GFR 2021-06-07 14:15:00 Holden Nagel spital Ramírez POC GLUCOSE 2021-06-07 13:56:00 NagelHolden rodriguez spital Ramírez POC GLUCOSE 2021-06-07 02:54:00 Holden Nagel spital [facility] CT LOWER EXTREMITY W 2021-06-07 01:22:59 [facility] CONTRAST RIGHT POC GLUCOSE 2021-06-06 23:50:00 Holden Nagel spital Ramírez POC GLUCOSE 2021-06-06 17:31:00 Holden Nagel Ho spital Ramírez HEMODIALYSIS 2021-06-06 15:05:52 [facility] POC GLUCOSE 2021-06-06 14:03:00 Holden Nagel spital Ramírez HC COMPLETE BLD COUNT 2021-06-06 10:31:00 [facility] W/AUTO DIFF BASIC METABOLIC PANEL 2021-06-06 10:31:00 [facility] ESTIMATED GFR 2021-06-06 10:31:00 Holden Nagel spital Ramírez POC GLUCOSE 2021-06-06 10:14:00 Holden Nagel spital Ramírez POC GLUCOSE 2021-06-06 06:26:00 Holden Nagel Ho spital Ramírez POC GLUCOSE 2021-06-06 02:41:00 Holden Nagel spital Ramírez POC GLUCOSE 2021-06-05 19:51:00 Holden Nagel spital Ramírez BASIC METABOLIC PANEL 2021-06-05 18:06:00 [facility] HC COMPLETE BLD COUNT 2021-06-05 18:06:00 [facility] W/AUTO DIFF ESTIMATED GFR 2021-06-05 18:06:00 Holden Nagel spital Ramírez POC GLUCOSE 2021-06-05 17:48:00 Jin Nagelash [facility] Ramírez ANAEROBIC CULTURE 2021-06-05 17:10:00 Kenyatta [facility] ANAEROBIC CULTURE 2021-06-05 16:59:00 Kenyatta, [facility] FUNGUS CULTURE 2021-06-05 16:59:00 [facility] AEROBIC CULTURE 2021-06-05 16:59:00 Ken[facility] spital AFB CULTURE 2021-06-05 16:59:00 [facility], [facility] sp[facility] FUNGUS SMEAR 2021-06-05 16:59:00 Kenyatta, Juwancaron HolmanGnosticist Ho spital AFB STAIN 2021-06-05 16:59:00 [facility] sp[facility] AN ELECTIVE 2021-06-05 16:52:08 Paraelise [facility] SUPRAGLOTTIC AIRWAY TISSUE CULTURE 2021-06-05 16:50:00 Kenyatta Juwan [facility] spital GRAM STAIN 2021-06-05 16:50:00 [facility] DEBRIDEMENT, LOWER 2021-06-05 16:16:00 Kenyatta [facility] EXTREMITY POC GLUCOSE 2021-06-05 13:32:00 [facility] Ramírez TROPONIN T 2021-06-05 10:58:00 [facility] ospital ABO AND RH CONFIRMATION 2021-06-05 10:54:00 Carlos Brasher [facility] Damion BASIC METABOLIC PANEL 2021-06-05 10:53:00 [facility] HC COMPLETE BLD COUNT 2021-06-05 10:53:00 [facility] W/AUTO DIFF ESTIMATED GFR 2021-06-05 10:53:00 Sivan Stewart. [facility] PROTHROMBIN TIME WITH INR 2021-06-05 10:52:00 Char Viramontes [facility] PARTIAL THROMBOPLASTIN 2021-06-05 10:52:00 [facility]aysa [facility] luisa [facility] TIME (PTT) HCG QUALITATIVE, SERUM 2021-06-05 10:52:00 Myron Fernandes [facility] SCREEN POC GLUCOSE 2021-06-05 09:40:00 Carlos Brasher Ho spital Damion BLOOD CULTURE, AEROBIC & 2021-06-05 08:27:00 Carlos Brasher [facility] ANAEROBIC Damion POC GLUCOSE 2021-06-05 07:42:00 Carlos Brasher Ho spital Damion POC GLUCOSE 2021-06-05 06:57:00 Carlos Brasher Ho spital Damion POC GLUCOSE 2021-06-05 06:10:00 Holden Nagel Ho spital Ramírze BLOOD CULTURE, AEROBIC & 2021-06-05 04:31:00 Carlos Brasher [facility] ANAEROBIC Damion POC GLUCOSE 2021-06-05 04:04:00 Carlos Brasher Ho spital Damion POC GLUCOSE 2021-06-05 03:51:00 Carlos Brasher Ho spital Damion TYPE AND SCREEN 2021-06-05 03:40:00 Carlos Brasher Ho spital Damion POC GLUCOSE 2021-06-05 03:05:00 Carlos Brasher Ho spital Damion POC GLUCOSE 2021-06-05 02:23:00 Carlos Brasher Ho spital Damion COVID-19 QUALITATIVE 2021-06-05 02:08:00 Sivan Stewart [facility] RT-PCR HC COMPLETE BLD COUNT 2021-06-05 01:24:00 Sivan Stewart [facility] W/AUTO DIFF PROTHROMBIN TIME WITH INR 2021-06-05 01:24:[address] [facility] PARTIAL THROMBOPLASTIN 2021-06-05 01:24:00 Sivan Stewart [facility] TIME (PTT) COMPREHENSIVE METABOLIC 2021-06-05 01:24:00 [facility] PANEL CREATINE KINASE, TOTAL 2021-06-05 01:24:00 SamantaSivan [facility] ([facility]) B NATRIURETIC PEPTIDE 2021-06-05 01:24:00 [facility] TROPONIN T 2021-06-05 01:24:00 Char Viramontes H ospital ESTIMATED GFR 2021-06-05 01:24:[address] [facility] ECG ED PRELIMINARY 2021-06-05 00:31:28 [facility] Hospital[facility]ivan [facility] INTERPRETATION ECG 12-LEAD 2021-06-05 00:19:17 Carlos Brasher Ho spital Damion POC GLUCOSE 2021-05-25 18:04:00 Awe, [facility] POC GLUCOSE 2021-05-25 14:00:00 Awe, [facility] CBC HEMOGRAM 2021-05-25 10:12:00 Awe, [facility] BASIC METABOLIC PANEL 2021-05-25 10:12:00 Awe, [facility] ESTIMATED GFR 2021-05-25 10:12:00 Awe, [facility] POC GLUCOSE 2021-05-25 02:49:00 Awe, [facility] POC GLUCOSE 2021-05-24 23:33:00 Awe, [facility] POC GLUCOSE 2021-05-24 17:56:00 Awe, [facility] POC GLUCOSE 2021-05-24 13:59:00 Awe, [facility] CBC HEMOGRAM 2021-05-24 10:12:00 Awe, [facility] BASIC METABOLIC PANEL 2021-05-24 10:12:00 Awe, [facility] ESTIMATED GFR 2021-05-24 10:12:00 [facility], [facility] 2021-05-24 09:59:00 [facility], [facility]SE 2021-05-24 02:26:00 [facility], [facility] POC GLUCOSE 2021-05-24 00:03:00 Awe, [facility] TRANSFUSE RED BLOOD CELLS 2021-05-23 22:30:[address] [facility] TRANSFUSE RED BLOOD CELLS 2021-05-23 21:30:00 [facility] POC GLUCOSE 2021-05-23 19:03:00 [facility], [facility] TYPE AND SCREEN 2021-05-23 14:38:00 [facility] HC COMPLETE BLD COUNT 2021-05-23 14:38:00 [facility] W/AUTO DIFF PREPARE RBC 2021-05-23 14:38:00 [facility] ospital PREPARE PLATELET PHERESIS 2021-05-23 14:38:[address] [facility] POC GLUCOSE 2021-05-23 14:35:00 Awe, Marilu [facility] HEMODIALYSIS 2021-05-23 13:42:30 [facility] CBC HEMOGRAM 2021-05-23 12:31:00 Awe, Marilu [facility] BASIC METABOLIC PANEL 2021-05-23 12:31:00 [facility] EST[facility]FR 2021-05-23 12:31:00 [facility], [facility] POC [facility]SE 2021-05-23 11:22:00 [facility], [facility] POC GLUCOSE 2021-05-23 03:30:00 Awe, [facility] POC GLUCOSE 2021-05-22 23:20:00 Awe, [facility] POC GLUCOSE 2021-05-22 17:20:00 Awe, [facility] POC GLUCOSE 2021-05-22 13:27:00 [facility], [facility] BASIC METABOLIC PANEL 2021-05-22 12:31:00 [facility] Rahel MAGNESIUM LEVEL 2021-05-22 12:31:00 Nikki Haynes ospital Rahel CBC HEMOGRAM 2021-05-22 12:31:00 Nikki Haynes ospital Rahel ESTIMATED GFR 2021-05-22 12:31:00 Nikki Haynes osgio Rahel POC GLUCOSE 2021-05-22 10:54:00 Awe, [facility] POC GLUCOSE 2021-05-22 07:28:00 Awe, [facility] POC GLUCOSE 2021-05-22 01:11:00 Awe, [facility] HEPATITIS B SURFACE 2021-05-21 21:08:00 [facility] ANTIBODY HEMODIALYSIS 2021-05-21 20:57:40 [facility] POC GLUCOSE 2021-05-21 17:57:00 Awe, [facility] POC GLUCOSE 2021-05-21 13:55:00 Awe, [facility] POC GLUCOSE 2021-05-21 10:41:00 [facility] COVID-19 ANTI-SPIKE IGG 2021-05-21 07:43:00 Clyde Olmstead [facility] ANTIBODY TITER Esa BASIC METABOLIC PANEL 2021-05-21 07:43:00 [facility] MAGNESIUM LEVEL 2021-05-21 07:43:00 Nikki Haynes ospigabe Rahel CBC HEMOGRAM 2021-05-21 07:43:00 Nikki Haynes ospital Rahel COVID-19 SEROLOGY PATIENT 2021-05-21 07:43:00 Clyde Olmstead [facility] SURVEILLANCE Esa ESTIMATED GFR 2021-05-21 07:43:00 Andre Sofia [facility] LACTIC ACID LEVEL 2021-05-21 07:43:[address] [facility] POC GLUCOSE 2021-05-21 06:35:00 Kye Barber spital HC COMPLETE BLD COUNT 2021-05-21 02:49:00 [facility] W/AUTO DIFF BASIC METABOLIC PANEL 2021-05-21 02:49:00 [facility] LACTIC ACID LEVEL 2021-05-21 02:49:00 [facility] OSMOLALITY, SERUM 2021-05-21 02:49:00 [facility] BETA HYDROXYBUTYRATE 2021-05-21 02:49:00 [facility] PROCALCITONIN 2021-05-21 02:49:00 [facility] ESTIMATED GFR 2021-05-21 02:49:00 [facility] POC GLUCOSE 2021-05-21 02:34:00 Kye Barber rajeshtal HC COMPLETE BLD COUNT 2021-05-21 00:28:[address] [facility] W/AUTO DIFF POC GLUCOSE 2021-05-20 23:57:00 Kye Barber spital BASIC METABOLIC PANEL 2021-05-20 23:20:00 Andre Sofia [facility] LACTIC ACID LEVEL 2021-05-20 23:20:[address] [facility] [place] ESTIMATED GFR 2021-05-20 23:20:00 Andre Sofia marilyn Pruitt VENOUS BLOOD GAS 2021-05-20 23:19:00 Andre Sofia ospital [place] POC GLUCOSE 2021-05-20 23:16:00 Kye Barber Ho spital POC GLUCOSE 2021-05-20 22:16:00 Kye Barber Ho spital POC GLUCOSE 2021-05-20 21:37:00 Kye Barber Ho spital POC GLUCOSE 2021-05-20 20:29:00 Kye Barber Ho spital POC GLUCOSE 2021-05-20 20:26:00 Kye Barber Ho spital POC GLUCOSE 2021-05-20 17:49:00 Kye Barber Ho spital POC GLUCOSE 2021-05-20 17:46:00 Kye Barber spital TRANSFUSE RED BLOOD CELLS 2021-05-20 [facility] 2021-05-20 15:52:00 [facility] PHERESIS BASIC METABOLIC PANEL 2021-05-20 15:25:[address] [facility] [place] ESTIMATED GFR 2021-05-20 15:25:00 [facility] [place] POC GLUCOSE 2021-05-20 14:48:00 Kye Barber Ho spital HEMODIALYSIS 2021-05-20 11:31:20 [facility] POC GLUCOSE 2021-05-20 10:44:00 Kye Barber Ho spital HEPATITIS B SURFACE 2021-05-20 08:49:00 [facility] ANTIGEN HEPATITIS B SURFACE AB, 2021-05-20 08:49:00 [facility] QUANTITATIVE HC COMPLETE BLD COUNT 2021-05-20 08:25:00 [facility] [place] W/AUTO DIFF BASIC METABOLIC PANEL 2021-05-20 08:25:00 [facility] [place] MAGNESIUM LEVEL 2021-05-20 08:25:00 [facility] PHOSPHORUS LEVEL 2021-05-20 08:25:00 [facility] PROTHROMBIN TIME WITH INR 2021-05-20 08:25:00 [facility] ESTIMATED GFR 2021-05-20 08:25:00 [facility] HEMOGLOBIN A1C 2021-05-20 08:25:00 [facility] Rahel POC GLUCOSE 2021-05-20 06:34:00 Kye Barber spital ARTERIAL BLOOD GAS 2021-05-20 04:36:00 [facility] ECG 12-LEAD 2021-05-20 03:42:28 [facility] PROTHROMBIN TIME WITH INR 2021-05-20 02:54:[address] [facility] HC COMPLETE BLD COUNT 2021-05-20 02:54:00 [facility] DIFF BASIC METABOLIC PANEL 2021-05-20 02:54:00 [facility] LACTIC ACID LEVEL 2021-05-20 02:54:00 [facility] VENOUS BLOOD GAS 2021-05-20 02:54:00 [facility] ESTIMATED GFR 2021-05-20 02:54:00 [facility] POC GLUCOSE 2021-05-20 02:54:00 Kye Barber spital XR CHEST 1 VW PORTABLE 2021-05-20 02:51:13 Graham [facility] OR FL < 1 HOUR 2021-05-20 01:30:15 Juwan You spital TRANSFUSE RED BLOOD CELLS 2021-05-20 00:59:00 Juwan You [facility] AN ELECTIVE 2021-05-20 00:53:01 Sukhjinder Medina spital SUPRAGLOTTIC AIRWAY [place] INCISION AND DRAINAGE, 2021-05-20 00:45:[address] [facility] HEMATOMA HC COMPLETE BLD COUNT 2021-05-19 22:13:00 [facility] W/AUTO DIFF BASIC METABOLIC PANEL 2021-05-19 22:13:00 [facility] PROTHROMBIN TIME WITH INR 2021-05-19 22:13:00 Char Viramontes [facility] PARTIAL THROMBOPLASTIN 2021-05-19 22:13:00 Elizabeth Viramontesradha [facility] TIME (PTT) MAGNESIUM LEVEL 2021-05-19 22:13:00 [facility] ESTIMATED GFR 2021-05-19 22:13:00 Juwan You spital POC GLUCOSE 2021-05-19 22:00:00 [facility] SURGICAL PATHOLOGY REQUEST 2021-05-19 21:47:00 Errol [facility] POC GLUCOSE 2021-05-19 21:17:00 Juwan You spital ACTIVATED CLOTTING TIME 2021-05-19 19:12:00 Kye Barber [facility] CT AN ELECTIVE 2021-05-19 18:11:04 Sukhjinder Medina spital SUPRAGLOTTIC AIRWAY [place] LOWER EXTREMITY 2021-05-19 17:59:00 Juwan You spital ANGIOGRAM,POSSIBLE ANGIOPLASTY,POSSIBLE STENT XR CHEST 1 VW PORTABLE 2021-05-19 15:47:[address] [facility] ESTIMATED GFR 2021-05-19 14:34:00 Juwan You spital POC PANEL 2021-05-19 14:34:00 Juwan You spital TYPE AND SCREEN 2021-05-19 14:05:00 [facility] Larry Romero PREPARE RBC 2021-05-19 14:05:00 Char Viramontes ospital PREPARE FRESH FROZEN 2021-05-19 14:05:00 Char Viramontes [facility] PLASMA PREPARE PLATELET PHERESIS 2021-05-19 14:05:00 Char Viramontes [facility] BASIC METABOLIC PANEL 2021-05-19 14:00:00 [facility] Larry Romero PROTHROMBIN TIME WITH INR 2021-05-19 14:00:00 Jayla [facility] Larry Romero HC COMPLETE BLD COUNT 2021-05-19 14:00:00 [facility] W/AUTO DIFF Larry Romero ABO AND RH CONFIRMATION 2021-05-19 14:00:00 Juwan You [facility] ESTIMATED GFR 2021-05-19 14:00:00 Isabell Dickerson [facility]ital Larry Romero COVID-19 QUALITATIVE 2021-05-19 12:40:00 Juwan You [facility] RT-PCR MEDICAL RELEASE/CLEARANCE 2021-05-13 06:01:00 Doctor Unassigned, [facility] FORMS [facility] US DUPLEX ARTERIAL LOWER 2021-05-12 15:21:31 Juwan You [facility] EXTREMITY BILATERAL Emergency department visit 2013-04-15 [...] push, single or initial substance/drug Eye procedure [facility] EGD [facility] (esophagogastroduodenoscop y) gastric outlet reduction section Shahid Joseph n Tubal ligation [facility] 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 Plan of Care Planned Activity Planned Date Details Comments Source Future Scheduled 2021-07-22 COVID-19 VACCINE [facility] Test 13:11:04 (1) [code = COVID-19 VACCINE (1)] Future Scheduled 2021-07-22 Hepatitis C [facility] Test 13:11:04 screening (procedure) [code = 701437984] Future Scheduled 2021-07-22 [facility] for [facility] Test 13:11:04 malignant neoplasm of cervix (procedure) [code = 791938096] Future Scheduled 2021-07-22 [facility]ACCINE [facility] Test 13:11:04 [code = INFLUENZA VACCINE] Encounters Start End Encounter Admission Attending Care Care Encounter Source Date/Time Date/Time Type Type Clinicians Facility Department ID 2021-10-28 Outpatient [facility] [id number] [place] 17:04:22 [id number] [facility] 2021-07-22 Outpatient nullFlavo [facility] [id number] Memoria 00:10:30 r Medical 05 l [facility] 2021-07-22 Preadmit nullFlavo [id number] Memoria 00:10:30 r [facility] 68 l [place] 2021-07-22 Outpatient nullFlavo [facility] [id number] Memoria 00:10:30 r Medical 06 l [facility] 2021-11-05 2021-11-05 [facility] [id number] -2021 [facility] 12:00:00 12:00:00 0518 Medica l Group 2021-08-20 2021-08-20 Outpatient [facility] [id number] -2021 Dev[facility] 12:30:00 12:30:00 0302 Medica l Group 2021-07-08 2021-07-08 Office Ann, 1.2.840.1 [id number] Methodi 12:54:05 14:25:36 Visit Bessie 45859.1.[address] [place] 3.430.2.7 Hosp jo-ann .3.216334 l .8 2021-07-08 2021-07-08 Telephone Anthony, 1.2.840.1 [id number] Methodi 00:00:00 00:00:[address] 3.430.2.7 Hospit a .3.208202 l .8 2021-07-08 2021-07-08 Travel 1.2.840.1 1.2.593.571 2676 [id number] Methodi 00:00:00 00:00:[address] 3.430.2.7 0.2.7.3.698 Ho spita .3.299891 084.8 l .8 2021-07-03 2021-07-03 Telephone Ann, 1.2.840.1 [id number] [id number] Methodi 00:00:00 00:00:[address] [place] 3.430.2.7 Hosp jo-ann .3.601780 l .8 2021-06-24 2021-06-24 Outpatient [facility] [id number] -2021 Devoted 05:31:00 05:31:00 0104 Medica l Group 2021-06-23 2021-06-23 Telephone Anthony, 1.2.840.1 [id number] [id number] Methodi 00:00:00 00:00:[address] 3.430.2.7 Hospit a .3.298966 l .8 2021-06-04 2021-06-18 [facility] 1.2.840.1 [id number] Methodi 18:20:00 18:13:00 Encounter Carlos Brasher 51293.1.[address] Nagel, Holden Ortizra 3.430.2.7 Hospita Shanda Shahid .3.065303 l Aurelio Schumacher .8 2021-06-16 2021-06-16 Anesthesia Yousif, 1.2.840.1 [id number] Methodi 23:59:59 23:59:59 Event Alesia Kay 51907.1.[address] 3.430.2.7 Hospit a .3.020959 l .8 2021-06-16 2021-06-16 Surgery Joe, 1.2.840.1 [id number] Methodi 13:30:00 17:45:[address] [facility] 3.430.2.7 Hosp jo-ann .3.599689 l .8 2021-06-16 2021-06-16 Anesthesia Jose Carlos, 1.2.840.1 [id number] [id number] Methodi 15:19:00 17:19:00 Event Veto 12067.1.1 309 s t V. 3.430.2.7 Hospit a .3.708595 l .8 2021-06-10 2021-06-10 Surgery KenyattaTory 1.2.840.1 [id number] [id number] Methodi 08:00:00 10:30:[address] 3.430.2.7 Hospit a .3.547106 l .8 2021-06-10 2021-06-10 Anesthesia Doc, 1.2.840.1 [id number] [id number] Methodi 08:26:00 09:40:00 Event Sofi 43111.1.[address] Marquita 3.430.2.7 Hosp jo-ann .3.174726 l .8 2021-06-09 2021-06-09 Prep for Robert, 1.2.840.1 [id number] Methodi 00:00:00 00:00:00 Surgery Gayle 70639.1.[address] 3.430.2.7 Hospit a .3.216261 l .8 2021-06-09 2021-06-09 Prep for Robert 1.2.840.1 [id number] [id number] Methodi 00:00:00 00:00:00 Surgery Gayle 72214.1.[address] 3.430.2.7 Hospit a .3.339473 l .8 2021-06-05 2021-06-05 Anesthesia Frankie Chowdhury 1.2.840.1 [id number] Methodi 10:16:00 11:41:00 Event Chandler Silverman 69971.1.[address] 3.430.2.7 Hospit a .3.443380 l .8 2021-06-05 2021-06-05 Surgery KenyattaJuwan 1.2.840.1 [id number] Methodi 09:30:00 11:05:[address] 3.430.2.7 Hospit a .3.493607 l .8 2021-06-03 2021-06-03 Prep for Anthoyn, 1.2.840.1 [id number] 17255 Methodi 00:00:00 00:00:00 Surgery Forrest 80242.1.[address] 3.430.2.7 Hospit a .3.791620 l .8 2021-06-03 2021-06-03 Telephone Adelita, 1.2.840.1 [id number] [id number] Methodi 00:00:00 00:00:00 Crysandria 60544.1.1 218 s t 3.430.2.7 Hospit a .3.171833 l .8 2021-05-28 2021-05-28 Outpatient Adams_R DMG DMG [id number] 021 [facility] 05:00:00 05:00:00 1208 Medica l Group 2021-05-27 2021-05-27 Patient Tam, 1.2.840.1 [id number] [id number] Methodi 00:00:00 00:00:00 Outreach Maria M 79262.1.[address] 3.430.2.7 Hospit a .3.590202 l .8 2021-05-27 2021-05-27 Travel 1.2.840.1 1.2.622.942 2530 [id number] Methodi 00:00:00 00:00:[address] 3.430.2.7 0.2.7.3.698 Ho spita .3.495955 084.8 l .8 2021-05-27 2021-05-27 Orders Boles, 1.2.840.1 [id number] 2099 [id number] Methodi 00:00:00 00:00:00 Only Anila 81988.1.[address] 3.430.2.7 Hospit a .3.860154 l .8 2021-05-26 2021-05-26 Outpatient Adams_R DMG DMG [id number] 021 [facility] 03:30:00 03:30:00 1206 Medica l Group 2021-05-26 2021-05-26 Telephone Anthony, 1.2.840.1 [id number] 2100 [id number] Methodi 00:00:00 00:00:[address] 3.430.2.7 Hospit a .3.155139 l .8 2021-05-19 2021-05-25 [facility] Juwan You 1.2.840.1 [id number] 2099 [id number] Methodi 06:00:00 15:59:00 Encounter Kye Barber 81393.1.[address] Marilu Koch 3.430.2.7 Hospita .3.241613 l .8 2021-05-21 2021-05-21 Outpatient [facility] [id number] 021 [facility] 03:30:00 03:30:00 1201 Medica l Group 2021-05-19 2021-05-19 Anesthesia Adam, 1.2.840.1 [id number] Methodi 18:45:00 20:31:00 Event Sukhjinder 23107.1.[address] Kendall 3.430.2.7 Hospit a .3.500181 l .8 2021-05-19 2021-05-19 Surgery KenyattaTory 1.2.840.1 [id number] 91736 Methodi 18:50:00 19:55:[address] 3.430.2.7 Hospit a .3.286351 l .8 2021-05-19 2021-05-19 Anesthesia AdamSukhjinder 1.2.840.1 [id number] Methodi 12:00:00 15:14:00 Event Hanane Ledezma 39292.1.[address] 3.430.2.7 Hospit a .3.662278 l .8 2021-05-19 2021-05-19 Surgery KenyattaTory 1.2.840.1 [id number] 03874 Methodi 12:05:00 14:45:[address] 3.430.2.7 Hospit a .3.908903 l .8 2021-05-19 2021-05-19 Travel 1.2.840.1 1.2.161.529 6401 473224 Methodi 00:00:00 00:00:[address] 3.430.2.7 0.2.7.3.698 Ho spita .3.154398 084.8 l .8 2021-05-14 2021-05-14 Telephone Romeljosé luissantoshjovita, 1.2.840.1 [id number] Methodi 00:00:00 00:00:[address] 3.430.2.7 Hospit a .3.893032 l .8 2021-05-14 2021-05-14 Prep for Anthony, 1.2.840.1 [id number] Methodi 00:00:00 00:00:00 Surgery Forrest 33400.1.[address] 3.430.2.7 Hospit a .3.589647 l .8 2021-05-13 2021-05-13 Orders Doctor JOANNA 1.2.840.114 [id number] Univers 00:00:00 00:00:00 Only Unassigned, MAGDALENO 350.1.13.10 ity of [place] [facility] 4.2.7.2.686 Baljinder as [id number] [address] 2021-05-12 2021-05-12 Office Juwan You 1.2.840.1 [id number] 67042 98214 Methodi 09:02:46 09:32:[address] 3.430.2.7 Hospit a .3.892601 l .8 2021-05-12 2021-05-12 Outpatient JUWAN YOU [facility] [id number] Mears 00:00:00 00:00:[address] 2021-05-12 2021-05-12 Telephone Anthony, 1.2.840.1 [id number] 2100 [id number] Methodi 00:00:00 00:00:[address] 3.430.2.7 Hospit a .3.259608 l .8 2021-05-12 2021-05-12 Travel 1.2.840.1 1.2.758.911 3005 [id number] Methodi 00:00:00 00:00:[address] 3.430.2.7 0.2.7.3.698 Ho spita .3.823988 084.8 l .8 2021-05-08 2021-05-08 Orders Anthony, 1.2.840.1 [id number] 0507 Methodi 00:00:00 00:00:00 Only Forrest 79446.1.[address] 3.430.2.7 Hospit a .3.492229 l .8 2021-05-08 2021-05-08 Telephone Boles, 1.2.840.1 [id number] Methodi 00:00:00 00:00:[address] 3.430.2.7 Hospit a .3.607009 l .8 2021-05-05 2021-05-05 Office Kenyatta Juwan 1.2.840.1 [id number] 60 Methodi 14:18:48 15:41:[address] 3.430.2.7 Hospit a .3.201770 l .8 2021-05-05 2021-05-05 Travel 1.2.840.1 1.2.493.105 0455 [id number] Methodi 00:00:00 00:00:[address] 3.430.2.7 0.2.7.3.698 Ho spita .3.337175 084.8 l .8 2021-05-01 2021-05-01 Telephone Joe, 1.2.840.1 [id number] 2099 [id number] Methodi 00:00:00 00:00:[address] [facility] 3.430.2.7 Hosp jo-ann .3.561239 l .8 2021-03-21 2021-03-21 [place] [id number] 021 [facility] 08:01:00 08:01:00 1001 Medica l Group 2021-01-21 2021-01-29 Inpatient nullFlavo [facility] [id number] Memoria 15:50:00 20:14:00 [facility] 12 [facility] 2021-01-21 2021-01-29 Inpatient U AYDEE, [facility] CAR 7512 [facility] 10:50:00 15:14:00 AKUA 2021-01-24 2021-01-24 Outpatient DMG DM [id number] 021 [facility] 08:00:00 08:00:00 0806 Medica l Group 2021-01-03 2021-01-03 Office DOMINIQUE Diane 1.2.840.114 [id number] 07:44:43 09:30:54 Visit Alexandr ALTMAN 350.1.13.58 MEDICAL 9.2.7.2.686 [facility] [id number] 1 2021-01-03 2021-01-03 Office DOMINIQUE Diane 1.2.840.114 [id number] [place] 07:44:43 09:30:54 Visit Alexandr NESSAROSALIE 350.1.13.58 H [facility] 9.2.7.2.686 [facility] [id number] 1 2020-12-24 2020-12-25 Outpatient nullFlavo [facility] [id number] Memoria 15:32:00 04:59:00 r Disease 11 l [facility] 2020-12-24 2020-12-24 Outpatient PHILIPPE, [facility] 7511 [facility] 10:32:00 23:59:00 HUI 2020-10-27 2020-10-27 JARON Miller 1.2.840.114 [id number] 00:00:00 00:00:00 (Out) Oz Lehman 350.1.13.10 Reading 4.2.7.2.686 Professio [id number] nal 059 [facility] 2020-10-24 2020-10-24 Orders Doctor MARSHALL 1.2.840.114 [id number] 00:00:00 00:00:00 Only Unassigned, MAGDALENO 350.1.13.10 [facility] 4.2.7.2.686 [id number] 009 2020-09-24 2020-09-24 Refill GonzalezRUST 1.2.840.114 [id number] 00:00:00 00:00:00 Jose Luis Lehman 350.1.13.10 Reading 4.2.7.2.686 Professio [id number] [address] 2020-09-09 2020-09-09 Patient DanielRUST 1.2.840.114 [id number] 00:00:00 00:00:00 Outreach Earl PRIMARY 350.1.13.10 Manuel CARE 4.2.7.2.686 PAVILLION [id number] 388 2020-07-23 2020-07-23 Office BlackRUST 1.2.467.751 8768 5976 13:31:20 14:37:36 Visit Deja PRIMARY 350.1.13.10 A CARE 4.2.7.2.686 PAVILLION [id number] 198 2020-06-27 2020-06-27 Office LaminRUST 1.2.840.114 [id number] Univers 10:05:43 11:00:00 Visit Carlosbhavana DoshiJose FClaudiaJose F LEHMAN 350.1.13.10 ity cecily [facility] 4.2.7.2.686 [place] PROFESSIO [id number] Mt dical [facility] 059 [facility] 2020-06-27 2020-06-27 Outpatient R LAMIN [facility] [id number] Univers 09:30:00 11:00:00 SENDBHAVANA itcaron of [facility] 2020-01-25 2020-01-31 Inpatient 1 Rei Waldron [facility] GPY [id number] 21:31:00 18:15:00 Rei Waldron [facility] 2018-05-24 2018-05-[address] [facility] SLE [id number] SLE 00:00:00 00:00:00 LY 2016-07-24 2016-07-30 Inpatient nullFlavo [facility] [id number] Memoria 02:04:00 16:20:00 r [place] 10 [facility] 2016-06-10 2016-06-15 Inpatient nullFlavo [facility] [id number] Memoria 16:02:00 18:23:00 r [place] 09 [facility] 2014-06-26 2014-06-26 EC nullFlavo [facility] [id number] Memoria 05:25:00 15:14:00 Emergency r [place] 08 [facility] 2013-04-14 2013-04-15 Emergency nullFlavo [id number] Memoria 21:04:00 01:45:00 r [facility] 07 [facility] 2012-03-14 2012-03-14 Emergency nullFlavo [id number] Memoria 16:32:00 22:39:00 r [facility] 04 [facility] 2011-11-28 2011-11-30 OU nullFlavo [facility] [id number] Memoria 12:16:00 20:40:00 r [facility] 03 [facility] 2011-09-18 2011-09-18 Emergency nullFlavo [facility] [id number] Memoria 08:23:00 13:34:00 r [facility] 02 [facility] 2011-09-01 2011-09-09 Inpatient nullFlavo [facility] [id number] [id number] Memoria 01:40:00 15:00:00 r [facility] 01 [facility] 2011-08-19 2011-08-23 Inpatient nullFlavo [facility] [id number] [id number] Memoria 14:25:00 15:28:00 r [facility] 00 [facility] Results Test Description Test Time Test Comments Results Result Comments Source AFB culture 2021-07-22 18:13:19 Test Item Value Reference Range Interpretation Comme nts AFB culture isolate No growth after 6 weeks of Specimen InformationSpecimen (test code = 543-9) incubation. Source: DrainageSpecimen Site: Thigh: infected wound right thigh [facility] ayhmfwf6529-10-55 18:15:13 Test Item Value Reference Range Interpretation Comments Fungus culture No growth Specimen isolate (test after 4 weeks InformationSp ecimen code = 1441) of Source: TissueS pecimen incubation. Site: Thigh [facility] [id number] 14:31:13 Test Item Value Reference Range Interpretation Comments Anaerobic No anaerobic Specimen culture isolate organisms InformationS pecimen (test code = isolated. Source: TissueS pecimen 552) [facility] [id number] 16:51:58 Test Item Value Reference Range Interpretation Comments Gram stain No WBC's or Specimen isolate (test organisms seen. Information Specimen code = 1469) Source: TissueS pecimen Site: Thigh [facility] [id number] 16:51:58 Test Item Value Reference Range Interpretation Comments Aerobic culture No growth Specimen isolate (test after 3 days. InformationSp ecimen code = 498) Source: TissueS pecimen Site: Thigh [facility] [id number] 16:51:58 Test Item Value Reference Range Interpretation Comments Fungus smear No fungi Specimen (test code = observed. InformationSpec imen Source: 1443) TissueSpecimen Site: [facility] iywwshh3790-11-02 17:00:57 Test Item Value Reference Range Interpretation Comments POC glucose (test code 79 mg/dL 65-99 Opera tor Name: Eboni = 25821-4) AmiDevice ID: [id number] [facility] , [id number] 20:46:00 Test Item Value Reference Range Interpretation Comments test urine, POC (test Negative code = 8245333) Internal QC (test code = 257) QC acceptable [facility] 12 [id number] 17:27:33 Test Item Value Reference Range Interpretation [...] of 04-JUN-2021 18:19,-No significant change was found- [facility] and [id number] 11:06:00 Test Item Value Reference Range Interpretation Comments ABO grouping (test code = 883-9) B Rh type (test code = 43541-4) POS Antibody screen (gel) (test code = NEG 890-4) [facility] ([facility]-19) RNA [Presence] in Respiratory specimen by EMANUEL with probe [id number] 19:37:44 Test Item Value Reference Range Interpretation Comments SARS-CoV-2 (COVID-19) RNA Not detected Not-Detected [Presence] in Respiratory specimen by EMANUEL with probe detection (test code = 55816-7) 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 (test code = 19522-1) Whether the patient has symptoms related to condition of interest (test code = 36064-2) Patient was hospitalized because of this condition (test code = 50170-2) Whether the patient was admitted to intensive care unit (ICU) for condition of interest (test code = 46330-6) Whether patient resides in a congregate care setting (test code = 44676-0) Tissue [id number] 20:18:46 Test Item Value Reference Range Interpretation Comments Tissue culture No growth Specimen isolate (test after 3 days. InformationSp ecimen code = 42617-0) Source: Tiss ueSpecimen Site: Thigh: in fected right thigh wou nd [facility] [id number] 20:24:42 Test Item Value Reference Range Interpretation Comments AFB stain No acid fast Specimen (test code = bacilli (AFB) InformationSpe cimen 676-7) seen. Source: Drainag eSpecimen Site: Thigh: in fected wound right th igh [facility] Hospital[facility] [id number] 09:49:57 Test Item Value Reference Range Interpretation Comments Urine culture No growth Specimen isolate (test after 24 InformationSpe [facility] code = 21529-4) hours Source: Urin eSpecimen Site: Clean cat ch [facility] HospitalABO and Rh yoffvulqlujm1571-76-92 12:52:00 Test Item Value Reference Range Interpretation Comments ABO grouping (test code = 883-9) B Rh type (test code = 05327-7) POS [facility] (COVID-19) RNA [Presence] in Respiratory specimen by EMANUEL with probe cxtvdrcku2418-32-08 03:04:32 Test Item Value Reference Range Interpretation Comments SARS-CoV-2 (COVID-19) RNA Not detected Not-Detected [Presence] in Respiratory specimen by EMANUEL with probe detection (test code = 42397-9) 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 (test code = 74315-0) Whether the patient has symptoms related to condition of interest (test code = 93337-1) Patient was hospitalized because of this condition (test code = 02390-5) Whether the patient was admitted to intensive care unit (ICU) for condition of interest (test code = 39877-2) Whether patient resides in a congregate care setting (test code = 14597-3) Prepare RBC, 1 [id number] 22:22:00 Test Item Value Reference Range Interpretation Comments Product name (test code Red Blood Cells -1, = 25) Leukored Unit number (test code = [id number] 7837937) Product code (test code [id number] = 3092) Dispense status (test Transfused code = 24) Blood expiration date (test code = 302) Blood type code (test code = 308) Blood type (test code = B POSITIVE 1314) Compatibility (test code Compatible = 6400) [facility] aqjqkyy1858-02-17 20:10:46 Test Item Value Reference Range Interpretation Comments Case number (test code = [id number]) Surgical pathology See link below for report (test code = PDF Lab Report 2255) Result status (test code This is Final Report = [id number]) for [id number] HospitalPrepare platelet pheresis, 1 Jaxke1823-37-32 15:35:00 Test Item Value Reference Range Interpretation Comments Product name (test code Bogdan Fraire LR, Path = 25) Red cont3 Unit number (test code = [id number] 6520570) Product code (test code [id number] = 3092) Dispense status (test Transfused code = 24) Blood expiration date (test code = 302) Blood type code (test code = 308) Blood type (test code = O POSITIVE 1314) Compatibility (test code Not required = 6400) [facility] HospitalActivated clotting [id number] 12:13:24 Test Item Value Reference Range Interpretation Comments Activated clotting time See_Comment H Oper ator Name: (test code = 5298) Bryn Diase ID: [id number] [Automated mess age] The system [employer] generated this result transmitted ref erence range: 96 - 152 sec. The reference r leo was not used to interpret this result as normal/abnor mal. Lab Interpretation (test Abnormal code = 73536-2) [facility] [id number] 14:37:48 Test Item Value Reference Range Interpretation Comments POC sodium (test code = 138 mmol/L 294-106 0295-0) POC potassium (test 5.5 mmol/L 3.5-5.0 H code = 6298-4) POC glucose (test code 295 mg/dL 65-99 H = 2339-0) POC creatinine (test 5.3 mg/dl 0.5-0.9 H Operato r Name: Pat code = 27427-7) Hillarye ID: [id number] POC hemoglobin (test 18.4 g/dL 12.0-16.0 H code = 718-7) POC hematocrit (test 54 % 37-47 H code = 4544-3) Lab Interpretation Abnormal (test code = 03179-2) [facility] [Presence] in Respiratory specimen by EMANUEL with probe illnatepb7393-07-91 07:53:49 Test Item Value Reference Range Interpretation Comments SARS-CoV-2 (COVID-19) RNA Not detected Not-Detected [Presence] in Respiratory specimen by EMANUEL with probe detection (test code = 79522-2) 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 (test code = 98374-8) Whether the patient has symptoms related to condition of interest (test code = 43873-2) Patient was hospitalized because of this condition (test code = 57967-5) Whether the patient was admitted to intensive care unit (ICU) for condition of interest (test code = 87425-7) Whether patient resides in a congregate care setting (test code = 40814-1) CHEM [id number] 08:17:00 Test Item Value Reference Range Interpretation Comments Glucose Lvl (test code = Glucose Lvl) 94 70-99 [facility] E[facility]TG7536[facility] 08:17:00 Test Item Value Reference Range Interpretation Comments BUN (test code = BUN) 27 7-22 [place] 114611-08-11 08:17:00 Test Item Value Reference Range Interpretation Comments Creatinine Lvl (test code = Creatinine 4.95 0.50-1.40 Lvl) [place] 114611-08-11 08:17:00 Test Item Value Reference Range Interpretation Comments Sodium Lvl (test code = Sodium Lvl) 136 135-145 [place] 114611-08-11 08:17:00 Test Item Value Reference Range Interpretation Comments Potassium Lvl (test code = Potassium 3.9 3.5-5.1 Lvl) [place] 114611-08-11 08:17:00 Test Item Value Reference Range Interpretation Comments Chloride Lvl (test code = Chloride Lvl) 103 95-109 [place] 114611-08-11 08:17:00 Test Item Value Reference Range Interpretation Comments CO2 (test code = CO2) 30 24-32 [place] 114611-08-11 08:17:00 Test Item Value Reference Range Interpretation Comments AGAP (test code = AGAP) 6.9 10.0-20.0 [place] 114611-08-11 08:17:00 Test Item Value Reference Range Interpretation Comments Calcium Lvl (test code = Calcium Lvl) 8.5 8.5-10.5 [place] 114611-08-11 08:17:00 Test Item Value Reference Range Interpretation Comments eGFR (test code = eGFR) 10 [place] 114611-08-11 08:17:00 Test Item Value Reference Range Interpretation Comments Phosphorus (test code = Phosphorus) 3.0 2.5-4.5 [place] 114611-08-11 08:17:00 Test Item Value Reference Range Interpretation Comments Magnesium Lvl (test code = Magnesium 2.4 1.8-2.4 Lvl) [place] 059591-08-11 08:17:00 Test Item Value Reference Range Interpretation Comments WBC (test code = WBC) 2.3 3.7-10.4 [place] 059591-08-11 08:17:00 Test Item Value Reference Range Interpretation Comments RBC (test code = RBC) 2.65 4.20-5.40 [place] 059591-08-11 08:17:00 Test Item Value Reference Range Interpretation Comments Hgb (test code = Hgb) 7.9 12.0-16.0 [place] 059591-08-11 08:17:00 Test Item Value Reference Range Interpretation Comments Hct (test code = Hct) 24.0 36.0-48.0 [place] 059591-08-11 08:17:00 Test Item Value Reference Range Interpretation Comments MCV (test code = MCV) 90.6 80.0-98.0 [facility]IpvnecfJOQIYGGXZL3905-56-24 08:17:00 Test Item Value Reference Range Interpretation Comments MCH (test code = MCH) 29.7 pg 27.0-31.0 [facility] HospitalYpzycafQFLXVCPCTO4969-54-34 08:17:00 Test Item Value Reference Range Interpretation Comments MCHC (test code = MCHC) 32.7 32.0-36.0 [place] 059591-08-11 08:17:00 Test Item Value Reference Range Interpretation Comments RDW (test code = RDW) 19.1 11.5-14.5 [facility] HospitalTkynzgxDGSFQZCXRO3773-46-74 08:17:00 Test Item Value Reference Range Interpretation Comments Platelet (test code = Platelet) 71 133-450 [facility] HospitalFobeisdGOEJBFNVNJ5540-68-83 08:17:00 Test Item Value Reference Range Interpretation Comments MPV (test code = MPV) 9.9 7.4-10.4 [facility] HospitalSyhuazcKBVFJQJYCU6150-89-12 08:17:00 Test Item Value Reference Range Interpretation Comments Segs (test code = Segs) 56.1 45.0-75.0 [facility] HospitalWvnmmthWSDYQBSRRT9425-06-42 08:17:00 Test Item Value Reference Range Interpretation Comments Lymphocytes (test code = Lymphocytes) 28.9 20.0-40.0 [facility] HospitalBfqnkbcZSTIRPZFNG6282-49-99 08:17:00 Test Item Value Reference Range Interpretation Comments Monocytes (test code = Monocytes) 8.1 2.0-12.0 [place] 059591-08-11 08:17:00 Test Item Value Reference Range Interpretation Comments Eosinophils (test code = 5.9 See_Comment [A utomated message] The Eosinophils) system which ge nerated this result tra nsmitted reference range : <=4.0. The reference r leo was not used to int erpret this result as normal/abnormal . [facility] HospitalHzaqmxfZYZASBVKFG1075-63-43 08:17:00 Test Item Value Reference Range Interpretation Comments Basophils (test code = 1.0 See_Comment [Aut omated message] The Basophils) system which ge nerated this result tra nsmitted reference range : <=1.0. The reference r leo was not used to int erpret this result as normal/abnormal . [facility] HospitalVytmdwqPNBEENUXTY1748-53-10 08:17:00 Test Item Value Reference Range Interpretation Comments Neutrophils # (test code = Neutrophils 1.3 1.5-8.1 #) [place] 059591-08-11 08:17:00 Test Item Value Reference Range Interpretation Comments Lymphocytes # (test code = Lymphocytes 0.7 1.0-5.5 #) [facility] HospitalKxmqlomWEAJMQPTRF7272-11-78 08:17:00 Test Item Value Reference Range Interpretation Comments Monocytes # (test code 0.2 See_Comment [Aut omated message] The = Monocytes #) system which generated this result tra nsmitted reference range : <=0.8. The reference r leo was not used to int erpret this result as normal/abnormal . [facility] HospitalRoiibkgHKUNKXDWOR1258-23-26 08:17:00 Test Item Value Reference Range Interpretation Comments Eosinophils # (test code 0.1 See_Comment [A utomated message] The = Eosinophils #) system whic h generated this result tra nsmitted reference range : <=0.5. The reference r leo was not used to int erpret this result as normal/abnormal . [facility]2021-08-10 09:30:00 Test Item Value Reference Range Interpretation Comments Glucose Lvl (test code = Glucose Lvl) 61 70-99 [facility] YKSNZ5221-79-04 09:30:00 Test Item Value Reference Range Interpretation Comments BUN (test code = BUN) 13 7-22 [facility] NZAEL0889-29-14 09:30:00 Test Item Value Reference Range Interpretation Comments Creatinine Lvl (test code = Creatinine 3.71 0.50-1.40 Lvl) [facility]2021-08-10 09:30:00 Test Item Value Reference Range Interpretation Comments Sodium Lvl (test code = Sodium Lvl) 136 135-145 [facility] 29935HYFYE7675-76-81 09:30:00 Test Item Value Reference Range Interpretation Comments Potassium Lvl (test code = Potassium 4.3 3.5-5.1 Lvl) [place] [address]-08-10 09:30:00 Test Item Value Reference Range Interpretation Comments Chloride Lvl (test code = Chloride Lvl) 103 95-109 [place] 114611-08-10 09:30:00 Test Item Value Reference Range Interpretation Comments CO2 (test code = CO2) 27 24-32 [place] [address]-08-10 09:30:00 Test Item Value Reference Range Interpretation Comments Calcium Lvl (test code = Calcium Lvl) 7.9 8.5-10.5 [place] [address]-08-10 09:30:00 Test Item Value Reference Range Interpretation Comments AGAP (test code = AGAP) 10.3 10.0-20.0 [place] 114611-08-10 09:30:00 Test Item Value Reference Range Interpretation Comments eGFR (test code = eGFR) 15 [place] 114611-08-10 09:30:00 Test Item Value Reference Range Interpretation Comments Magnesium Lvl (test code = Magnesium 2.3 1.8-2.4 Lvl) [place] 114611-08-10 09:30:00 Test Item Value Reference Range Interpretation Comments Phosphorus (test code = Phosphorus) 3.1 2.5-4.5 [place] [address]-08-10 09:30:00 Test Item Value Reference Range Interpretation Comments Segs (test code = Segs) 61.5 45.0-75.0 [place] 059591-08-10 09:30:00 Test Item Value Reference Range Interpretation Comments Lymphocytes (test code = Lymphocytes) 24.6 20.0-40.0 [place] [address]-08-10 09:30:00 Test Item Value Reference Range Interpretation Comments Monocytes (test code = Monocytes) 7.4 2.0-12.0 [place] [address]-08-10 09:30:00 Test Item Value Reference Range Interpretation Comments Eosinophils (test code = 5.5 See_Comment [A utomated message] The Eosinophils) system which ge nerated this result tra nsmitted reference range : <=4.0. The reference r leo was not used to int erpret this result as normal/abnormal . [facility] HospitalMsbxdjtVHONCNPKAX4591-53-93 09:30:00 Test Item Value Reference Range Interpretation Comments Basophils (test code = 1.0 See_Comment [Aut omated message] The Basophils) system which ge nerated this result tra nsmitted reference range : <=1.0. The reference r leo was not used to int erpret this result as normal/abnormal . [facility] HospitalTfvambaRIDUNHUSHR2721-74-77 09:30:00 Test Item Value Reference Range Interpretation Comments Neutrophils # (test code = Neutrophils 1.6 1.5-8.1 #) [facility] HospitalXynqdtgWPQQVTTMPO1539-95-01 09:30:00 Test Item Value Reference Range Interpretation Comments Lymphocytes # (test code = Lymphocytes 0.6 1.0-5.5 #) [place] 059591-08-10 09:30:00 Test Item Value Reference Range Interpretation Comments Monocytes # (test code 0.2 See_Comment [Aut omated message] The = Monocytes #) system which generated this result tra nsmitted reference range : <=0.8. The reference r leo was not used to int erpret this result as normal/abnormal . [facility] HospitalWbxuwigBUHUGWRKWF6610-90-76 09:30:00 Test Item Value Reference Range Interpretation Comments Eosinophils # (test code 0.1 See_Comment [A utomated message] The = Eosinophils #) system whic h generated this result tra nsmitted reference range : <=0.5. The reference r leo was not used to int erpret this result as normal/abnormal . [facility] HospitalKstyqjzXFBSKMNETZ4613-44-46 09:30:00 Test Item Value Reference Range Interpretation [...] studies, if clinically indicated, are recommended. CPT: 41339 [place] 059591-08-10 09:30:00 Test Item Value Reference Range Interpretation Comments WBC (test code = WBC) 2.5 3.7-10.4 [facility] HospitalSqvpzkzVKJRBVDXMQ6317-57-99 09:30:00 Test Item Value Reference Range Interpretation Comments RBC (test code = RBC) 2.68 4.20-5.40 [facility] HospitalJkbglarDALNRQKTSD7385-38-63 09:30:00 Test Item Value Reference Range Interpretation Comments Hgb (test code = Hgb) 8.2 12.0-16.0 [facility] HospitalTqjvcjiIUWLWZFRRO9709-80-19 09:30:00 Test Item Value Reference Range Interpretation Comments Hct (test code = Hct) 24.3 36.0-48.0 [facility] HospitalHmkpxhbVRLKRUWWZF6595-19-03 09:30:00 Test Item Value Reference Range Interpretation Comments MCV (test code = MCV) 90.9 80.0-98.0 [facility] HospitalRgdszbxIKWKBUHBGI4990-33-84 09:30:00 Test Item Value Reference Range Interpretation Comments MCH (test code = MCH) 30.5 pg 27.0-31.0 [facility] HospitalGwdaptsYURTXXEKTM4661-91-88 09:30:00 Test Item Value Reference Range Interpretation Comments MCHC (test code = MCHC) 33.6 32.0-36.0 [facility] HospitalBpavogqZDZIDLYJHB8427-26-04 09:30:00 Test Item Value Reference Range Interpretation Comments RDW (test code = RDW) 19.4 11.5-14.5 [facility] HospitalCqgrarpLZVUTWBJVW4012-93-35 09:30:00 Test Item Value Reference Range Interpretation Comments Platelet (test code = Platelet) 70 133-450 [facility] HospitalKjkczmrUXNRTELSOE8021-75-48 09:30:00 Test Item Value Reference Range Interpretation Comments MPV (test code = MPV) 10.7 7.4-10.4 [facility]2021-08-09 05:10:00 Test Item Value Reference Range Interpretation Comments Glucose Lvl (test code = Glucose Lvl) 69 70-99 [facility]2021-08-09 05:10:00 Test Item Value Reference Range Interpretation Comments BUN (test code = BUN) 29 7-22 [place] 114611-08-09 05:10:00 Test Item Value Reference Range Interpretation Comments Creatinine Lvl (test code = Creatinine 5.14 0.50-1.40 Lvl) [place] 114611-08-09 05:10:00 Test Item Value Reference Range Interpretation Comments Sodium Lvl (test code = Sodium Lvl) 134 135-145 [place] 114611-08-09 05:10:00 Test Item Value Reference Range Interpretation Comments Potassium Lvl (test code = Potassium 5.1 3.5-5.1 Lvl) [place] 114611-08-09 05:10:00 Test Item Value Reference Range Interpretation Comments Chloride Lvl (test code = Chloride Lvl) 98 95-109 [place] 114611-08-09 05:10:00 Test Item Value Reference Range Interpretation Comments CO2 (test code = CO2) 29 24-32 [place] 114611-08-09 05:10:00 Test Item Value Reference Range Interpretation Comments Calcium Lvl (test code = Calcium Lvl) 7.6 8.5-10.5 [place] 114611-08-09 05:10:00 Test Item Value Reference Range Interpretation Comments AGAP (test code = AGAP) 12.1 10.0-20.0 [place] 114611-08-09 05:10:00 Test Item Value Reference Range Interpretation Comments eGFR (test code = eGFR) 10 [place] 114611-08-09 05:10:00 Test Item Value Reference Range Interpretation Comments Magnesium Lvl (test code = Magnesium 2.3 1.8-2.4 Lvl) [place] 114611-08-09 05:10:00 Test Item Value Reference Range Interpretation Comments Phosphorus (test code = Phosphorus) 5.0 2.5-4.5 [place] 059591-08-09 05:10:00 Test Item Value Reference Range Interpretation Comments WBC (test code = WBC) 2.7 3.7-10.4 [place] 059591-08-09 05:10:00 Test Item Value Reference Range Interpretation Comments RBC (test code = RBC) 2.80 4.20-5.40 [place] 059591-08-09 05:10:00 Test Item Value Reference Range Interpretation Comments Hgb (test code = Hgb) 8.5 12.0-16.0 [place] 059591-08-09 05:10:00 Test Item Value Reference Range Interpretation Comments Hct (test code = Hct) 25.7 36.0-48.0 [place] 059591-08-09 05:10:00 Test Item Value Reference Range Interpretation Comments MCV (test code = MCV) 91.7 80.0-98.0 [place] 059591-08-09 05:10:00 Test Item Value Reference Range Interpretation Comments MCH (test code = MCH) 30.4 pg 27.0-31.0 [facility] HospitalHpxkjzrKOJHAVLBQH1424-50-65 05:10:00 Test Item Value Reference Range Interpretation Comments MCHC (test code = MCHC) 33.1 32.0-36.0 [facility] HospitalSzcczehDEETAZYUAO7253-31-54 05:10:00 Test Item Value Reference Range Interpretation Comments RDW (test code = RDW) 19.2 11.5-14.5 [facility] HospitalVigjarzMEISTWURNS2418-48-26 05:10:00 Test Item Value Reference Range Interpretation Comments Platelet (test code = Platelet) 72 133-450 [facility] HospitalHijtqomODAWKVUWZT9934-25-21 05:10:00 Test Item Value Reference Range Interpretation Comments MPV (test code = MPV) 9.9 7.4-10.4 [facility] HospitalQhbwhwwRBIVLWKFEZ5888-12-36 05:10:00 Test Item Value Reference Range Interpretation Comments Segs (test code = Segs) 72.6 45.0-75.0 [facility] HospitalFdqfafxGFPSFBNQYA5481-88-45 05:10:00 Test Item Value Reference Range Interpretation Comments Lymphocytes (test code = Lymphocytes) 15.9 20.0-40.0 [place] 059591-08-09 05:10:00 Test Item Value Reference Range Interpretation Comments Monocytes (test code = Monocytes) 7.3 2.0-12.0 [place] 059591-08-09 05:10:00 Test Item Value Reference Range Interpretation Comments Eosinophils (test code = 3.4 See_Comment [A utomated message] The Eosinophils) system which ge nerated this result tra nsmitted reference range : <=4.0. The reference r leo was not used to int erpret this result as normal/abnormal . [facility] HospitalHhhkoczIQNVCJPGWW4394-83-87 05:10:00 Test Item Value Reference Range Interpretation Comments Basophils (test code = 0.8 See_Comment [Aut omated message] The Basophils) system which ge nerated this result tra nsmitted reference range : <=1.0. The reference r leo was not used to int erpret this result as normal/abnormal . [facility] HospitalPrijhgfPJHYDCRFMA2201-12-89 05:10:00 Test Item Value Reference Range Interpretation Comments Neutrophils # (test code = Neutrophils 1.9 1.5-8.1 #) [facility] HospitalNsxhmobLNZIHDPVTM2521-02-65 05:10:00 Test Item Value Reference Range Interpretation Comments Lymphocytes # (test code = Lymphocytes 0.4 1.0-5.5 #) [facility] HospitalIrmitbvDAAPXFOBKS9015-72-72 05:10:00 Test Item Value Reference Range Interpretation Comments Monocytes # (test code 0.2 See_Comment [Aut omated message] The = Monocytes #) system which generated this result tra nsmitted reference range : <=0.8. The reference r leo was not used to int erpret this result as normal/abnormal . [facility] HospitalTsrkmrmDMZOAZSBTF3097-24-96 05:10:00 Test Item Value Reference Range Interpretation Comments Eosinophils # (test code 0.1 See_Comment [A utomated message] The = Eosinophils #) system whic h generated this result tra nsmitted reference range : <=0.5. The reference r leo was not used to int erpret this result as normal/abnormal . [facility]2021-08-09 05:10:00 Test Item Value Reference Range Interpretation Comments Ca Ion WB (test code = Ca Ion WB) 1.10 1.05-1.25 [facility]2021-08-09 05:10:00 Test Item Value Reference Range Interpretation Comments Ca Norm WB (test code = Ca Norm WB) 1.06 1.05-1.25 [facility]KDIOQILYY2593-59-71 18:36:00 Test Item Value Reference Range Interpretation Comments C difficile DNA (test Negative (01/26/21 1:36 code = C difficile DNA) PM) [facility]2021-08-08 07:33:00 Test Item Value Reference Range Interpretation Comments Ca Ion WB (test code = Ca Ion WB) 1.12 1.05-1.25 [facility]2021-08-08 07:33:00 Test Item Value Reference Range Interpretation Comments Ca Norm WB (test code = Ca Norm WB) 1.07 1.05-1.25 [place] 114611-08-08 07:30:00 Test Item Value Reference Range Interpretation Comments Glucose Lvl (test code = Glucose Lvl) 65 70-99 [place] 114611-08-08 07:30:00 Test Item Value Reference Range Interpretation Comments BUN (test code = BUN) 21 7-22 [place] 114611-08-08 07:30:00 Test Item Value Reference Range Interpretation Comments Creatinine Lvl (test code = Creatinine 4.18 0.50-1.40 Lvl) [place] 114611-08-08 07:30:00 Test Item Value Reference Range Interpretation Comments Sodium Lvl (test code = Sodium Lvl) 136 135-145 [place] 114611-08-08 07:30:00 Test Item Value Reference Range Interpretation Comments Potassium Lvl (test code = Potassium 4.5 3.5-5.1 Lvl) [place] 114611-08-08 07:30:00 Test Item Value Reference Range Interpretation Comments Chloride Lvl (test code = Chloride Lvl) 99 95-109 [place] 114611-08-08 07:30:00 Test Item Value Reference Range Interpretation Comments CO2 (test code = CO2) 31 24-32 [place] 114611-08-08 07:30:00 Test Item Value Reference Range Interpretation Comments AGAP (test code = AGAP) 10.5 10.0-20.0 [place] 114611-08-08 07:30:00 Test Item Value Reference Range Interpretation Comments Calcium Lvl (test code = Calcium Lvl) 7.9 8.5-10.5 [place] 114611-08-08 07:30:00 Test Item Value Reference Range Interpretation Comments eGFR (test code = eGFR) 13 [place] 114611-08-08 07:30:00 Test Item Value Reference Range Interpretation Comments Magnesium Lvl (test code = Magnesium 2.2 1.8-2.4 Lvl) [place] 114611-08-08 07:30:00 Test Item Value Reference Range Interpretation Comments Phosphorus (test code = Phosphorus) 4.4 2.5-4.5 [facility] HospitalCbholtyNLIEWTQBNH2436-85-12 07:30:00 Test Item Value Reference Range Interpretation Comments WBC (test code = WBC) 2.3 3.7-10.4 [facility] HospitalMhrbixpXUQNJJDXYP6785-04-18 07:30:00 Test Item Value Reference Range Interpretation Comments RBC (test code = RBC) 2.88 4.20-5.40 [facility] HospitalZfdsnvvAAAAFPXYDD0581-35-06 07:30:00 Test Item Value Reference Range Interpretation Comments Hgb (test code = Hgb) 8.6 12.0-16.0 [facility] HospitalUowrhlpMPJIEQBIDJ9723-85-14 07:30:00 Test Item Value Reference Range Interpretation Comments Hct (test code = Hct) 26.6 36.0-48.0 [facility] HospitalZshmiszMLXVMNDSOY0411-51-33 07:30:00 Test Item Value Reference Range Interpretation Comments MCV (test code = MCV) 92.2 80.0-98.0 [facility] HospitalXswqtkdZKCQTMCCRX1752-31-80 07:30:00 Test Item Value Reference Range Interpretation Comments MCH (test code = MCH) 29.8 pg 27.0-31.0 [facility] HospitalYjdwsuvMWZRDLAISK9243-71-66 07:30:00 Test Item Value Reference Range Interpretation Comments MCHC (test code = MCHC) 32.4 32.0-36.0 [facility] HospitalPhgnoqeKOEMLRLIND4710-19-06 07:30:00 Test Item Value Reference Range Interpretation Comments RDW (test code = RDW) 19.7 11.5-14.5 [facility] HospitalSndejddLEVHTACXFY0535-84-96 07:30:00 Test Item Value Reference Range Interpretation Comments Platelet (test code = Platelet) 83 133-450 [facility] HospitalXuhjxjrOFVFEMUCML9028-63-60 07:30:00 Test Item Value Reference Range Interpretation Comments MPV (test code = MPV) 10.2 7.4-10.4 [facility] HospitalKwwzmidVIXZDTEVXI6697-66-06 07:30:00 Test Item Value Reference Range Interpretation Comments Segs (test code = Segs) 64.0 45.0-75.0 [facility] HospitalCerebaqGALXRCMZPP4248-27-67 07:30:00 Test Item Value Reference Range Interpretation Comments Lymphocytes (test code = Lymphocytes) 24.1 20.0-40.0 [facility] HospitalKfpvnugGSRUAOHFPG2131-32-00 07:30:00 Test Item Value Reference Range Interpretation Comments Monocytes (test code = Monocytes) 7.0 2.0-12.0 [place] 059591-08-08 07:30:00 Test Item Value Reference Range Interpretation Comments Eosinophils (test code = 3.7 See_Comment [A utomated message] The Eosinophils) system which ge nerated this result tra nsmitted reference range : <=4.0. The reference r leo was not used to int erpret this result as normal/abnormal . [place] 059591-08-08 07:30:00 Test Item Value Reference Range Interpretation Comments Basophils (test code = 1.2 See_Comment [Aut omated message] The Basophils) system which ge nerated this result tra nsmitted reference range : <=1.0. The reference r leo was not used to int erpret this result as normal/abnormal . [place] 059591-08-08 07:30:00 Test Item Value Reference Range Interpretation Comments Neutrophils # (test code = Neutrophils 1.5 1.5-8.1 #) [facility] HospitalPuwvvqaPOGHZIJGJY5237-41-31 07:30:00 Test Item Value Reference Range Interpretation Comments Lymphocytes # (test code = Lymphocytes 0.6 1.0-5.5 #) [facility] HospitalUxsstetMPPEKLXUKV4125-73-97 07:30:00 Test Item Value Reference Range Interpretation Comments Monocytes # (test code 0.2 See_Comment [Aut omated message] The = Monocytes #) system which generated this result tra nsmitted reference range : <=0.8. The reference r leo was not used to int erpret this result as normal/abnormal . [place] 059591-08-08 07:30:00 Test Item Value Reference Range Interpretation Comments Eosinophils # (test code 0.1 See_Comment [A utomated message] The = Eosinophils #) system whic h generated this result tra nsmitted reference range : <=0.5. The reference r leo was not used to int erpret this result as normal/abnormal . [facility] XCZQY4120-54-36 09:32:00 Test Item Value Reference Range Interpretation Comments Glucose Lvl (test code = Glucose Lvl) 59 70-99 [facility] HOMQY8306-12-53 09:32:00 Test Item Value Reference Range Interpretation Comments BUN (test code = BUN) 11 7-22 [place] 114611-08-07 09:32:00 Test Item Value Reference Range Interpretation Comments Creatinine Lvl (test code = Creatinine 2.75 0.50-1.40 Lvl) [place] 114611-08-07 09:32:00 Test Item Value Reference Range Interpretation Comments Sodium Lvl (test code = Sodium Lvl) 138 135-145 [place] 114611-08-07 09:32:00 Test Item Value Reference Range Interpretation Comments Potassium Lvl (test code = Potassium 4.1 3.5-5.1 Lvl) [place] 114611-08-07 09:32:00 Test Item Value Reference Range Interpretation Comments Chloride Lvl (test code = Chloride Lvl) 104 95-109 [place] 114611-08-07 09:32:00 Test Item Value Reference Range Interpretation Comments CO2 (test code = CO2) 29 24-32 [place] 114611-08-07 09:32:00 Test Item Value Reference Range Interpretation Comments Calcium Lvl (test code = Calcium Lvl) 8.3 8.5-10.5 [place] 114611-08-07 09:32:00 Test Item Value Reference Range Interpretation Comments AGAP (test code = AGAP) 9.1 10.0-20.0 [place] 114611-08-07 09:32:00 Test Item Value Reference Range Interpretation Comments eGFR (test code = eGFR) 21 [place] 114611-08-07 09:32:00 Test Item Value Reference Range Interpretation Comments Magnesium Lvl (test code = Magnesium 2.2 1.8-2.4 Lvl) [place] 114611-08-07 09:32:00 Test Item Value Reference Range Interpretation Comments Phosphorus (test code = Phosphorus) 3.9 2.5-4.5 [place] 059591-08-07 09:32:00 Test Item Value Reference Range Interpretation Comments WBC (test code = WBC) 2.3 3.7-10.4 [place] 15891-08-07 09:32:00 Test Item Value Reference Range Interpretation Comments RBC (test code = RBC) 2.78 4.20-5.40 [place] 15891-08-07 09:32:00 Test Item Value Reference Range Interpretation Comments Hgb (test code = Hgb) 8.4 12.0-16.0 [facility]EefryxwRPQNKTHATA5544-41-16 09:32:00 Test Item Value Reference Range Interpretation Comments Hct (test code = Hct) 25.2 36.0-48.0 [facility]YorfybaCZAMNOMRIU0896-65-81 09:32:00 Test Item Value Reference Range Interpretation Comments MCV (test code = MCV) 90.5 80.0-98.0 [facility]andPknivllQDGMXSTBEW3135-28-70 09:32:00 Test Item Value Reference Range Interpretation Comments MCH (test code = MCH) 30.4 pg 27.0-31.0 [facility]andXthyfstMARRSUQDHX5636-55-26 09:32:00 Test Item Value Reference Range Interpretation Comments MCHC (test code = MCHC) 33.5 32.0-36.0 [facility] HospitalLyopmqdFKPLGBAOZN1591-19-22 09:32:00 Test Item Value Reference Range Interpretation Comments RDW (test code = RDW) 19.0 11.5-14.5 [facility]andXiwjamgAEKUTLIUOC7706-19-92 09:32:00 Test Item Value Reference Range Interpretation Comments Platelet (test code = Platelet) 87 133-450 [facility]andSctoetlYCCLQCUXTL0294-50-95 09:32:00 Test Item Value Reference Range Interpretation Comments MPV (test code = MPV) 10.0 7.4-10.4 [facility] YDLHJQX0512-16-69 05:33:00 Test Item Value Reference Range Interpretation Comments ABO/Rh (test code = ABO/Rh) B POS [facility] [employer] PWFURNR1124-72-08 05:33:00 Test Item Value Reference Range Interpretation Comments Antibody Scrn (test Negative (01/24/21 12:33 code = Antibody Scrn) AM) [facility] HospitalDqztwqrAGUQINOADI9682-11-59 05:33:00 Test Item Value Reference Range Interpretation Comments Segs (test code = Segs) 60.2 45.0-75.0 [facility] HospitalGzrwllfSLRMGHQQUZ3125-79-49 05:33:00 Test Item Value Reference Range Interpretation Comments Lymphocytes (test code = Lymphocytes) 28.6 20.0-40.0 [facility]andQjclnhvLEVZXZGSLS2403-95-14 05:33:00 Test Item Value Reference Range Interpretation Comments Monocytes (test code = Monocytes) 5.8 2.0-12.0 [place] 059591-08-06 05:33:00 Test Item Value Reference Range Interpretation Comments Eosinophils (test code = 4.2 See_Comment [A utomated message] The Eosinophils) system which ge nerated this result tra nsmitted reference range : <=4.0. The reference r leo was not used to int erpret this result as normal/abnormal . [facility] HospitalSnpsjbaSZRPBNBTRT2644-26-62 05:33:00 Test Item Value Reference Range Interpretation Comments Basophils (test code = 1.2 See_Comment [Aut omated message] The Basophils) system which ge nerated this result tra nsmitted reference range : <=1.0. The reference r leo was not used to int erpret this result as normal/abnormal . [place] 059591-08-06 05:33:00 Test Item Value Reference Range Interpretation Comments Neutrophils # (test code = Neutrophils 2.2 1.5-8.1 #) [facility] HospitalHvkpiqjRJBRCQWVEX5787-12-78 05:33:00 Test Item Value Reference Range Interpretation Comments Lymphocytes # (test code = Lymphocytes 1.1 1.0-5.5 #) [facility] HospitalJnnxtwsUQAZUBTYEQ1636-61-89 05:33:00 Test Item Value Reference Range Interpretation Comments Monocytes # (test code 0.2 See_Comment [Aut omated message] The = Monocytes #) system which generated this result tra nsmitted reference range : <=0.8. The reference r leo was not used to int erpret this result as normal/abnormal . [facility] HospitalRewepwlUGIJQQHKGJ7977-50-31 05:33:00 Test Item Value Reference Range Interpretation Comments Eosinophils # (test code 0.2 See_Comment [A utomated message] The = Eosinophils #) system whic h generated this result tra nsmitted reference range : <=0.5. The reference r leo was not used to int erpret this result as normal/abnormal . [facility] HospitalJgvsurqOLQIKPKOGR3656-54-40 05:53:00 Test Item Value Reference Range Interpretation Comments PT (test code = PT) 14.4 s 12.0-14.7 [facility] HospitalCpccmwsEGARQIKQEN6584-75-97 05:53:00 Test Item Value Reference Range Interpretation Comments INR (test code = INR) 1.13 1 0.85-1.17 [place] 059591-08-05 05:53:00 Test Item Value Reference Range Interpretation Comments Fibrinogen Lvl (test code = Fibrinogen 319 230-510 Lvl) [facility] HospitalYrxakglZRRRGAMTQH1059-53-34 05:53:00 Test Item Value Reference Range Interpretation Comments Thrombin Time (test code = Thrombin 15.9 s 15.0-21.2 Time) [facility] HospitalVcczwixGETPNCUUAA3300-26-37 05:53:00 Test Item Value Reference Range Interpretation Comments PTT (test code = PTT) 47.0 s 22.9-35.8 [facility] HospitalVvusgzbDNGVCKHOOX8724-25-41 05:53:00 Test Item Value Reference Range Interpretation Comments D-Dimer (test code = D-Dimer) 0.91 [place] 059591-08-05 05:53:00 Test Item Value Reference Range Interpretation Comments Basophils # (test code 0.1 See_Comment [Aut omated message] The = Basophils #) system which generated this result tra nsmitted reference range : <=0.2. The reference r leo was not used to int erpret this result as normal/abnormal . [facility]ATHYROID OQMHITR4462-18-02 05:53:00 Test Item Value Reference Range Interpretation Comments Ca Ion WB (test code = Ca Ion WB) 1.24 1.05-1.25 [facility] MichiganSkiin FundementalsROID IBEGJXO2816-89-34 05:53:00 Test Item Value Reference Range Interpretation Comments Ca Norm WB (test code = Ca Norm WB) 1.25 1.05-1.25 [facility] [id number] 10:09:00 Test Item Value Reference Range Interpretation Comments ALT (test code = ALT) 49 See_Comment [Auto mated message] The system which ge nerated this result transmit rohit reference range : <=65. The reference range was not used to interpr et this result as reji l/abnormal. [facility] LGCHI2665-78-12 10:09:00 Test Item Value Reference Range Interpretation Comments Albumin Lvl (test code = Albumin Lvl) 2.8 3.5-5.0 [facility] CFBLP6774-75-62 10:09:00 Test Item Value Reference Range Interpretation Comments Alk Phos (test code = Alk Phos) 41 39-136 [facility] UGGJZ5000-82-12 10:09:00 Test Item Value Reference Range Interpretation Comments Bili Direct (test code 0.2 See_Comment [Aut omated message] The = Bili Direct) system which generated this result tra nsmitted reference range : <=0.3. The reference r leo was not used to int erpret this result as reji l/abnormal. [facility] [id number] 10:09:00 Test Item Value Reference Range Interpretation Comments Bili Total (test code = Bili Total) 0.6 0.2-1.3 [facility] [id number] 10:09:00 Test Item Value Reference Range Interpretation Comments Bili Indirect (test 0.4 See_Comment [Automa rohit message] The code = Bili Indirect) system which generated this result tra nsmitted reference range : <=1.0. The reference r leo was not used to int erpret this result as normal/abnormal . [facility] [id number] 10:09:00 Test Item Value Reference Range Interpretation Comments Total Protein (test code = Total 5.6 6.4-8.4 Protein) [facility] [id number] 10:09:00 Test Item Value Reference Range Interpretation Comments AST (test code = AST) 33 See_Comment [Auto mated message] The system which ge nerated this result transmit rohit reference range : <=37. The reference range was not used to interpr et this result as reji l/abnormal. [facility] [employer] JNJCT7650-30-93 10:09:00 Test Item Value Reference Range Interpretation Comments Globulin (test code = Globulin) 2.8 2.7-4.2 [facility] [id number] 10:09:00 Test Item Value Reference Range Interpretation Comments A/G Ratio (test code = A/G Ratio) 1.0 1 0.7-1.6 [facility] [id number] 10:09:00 Test Item Value Reference Range Interpretation Comments Amylase Lvl (test code = Amylase Lvl) 19 25-115 [facility] PTRIO9719-07-11 10:09:00 Test Item Value Reference Range Interpretation Comments Lipase Lvl (test code = Lipase Lvl) no gt 73-393 [place] 059591-08-04 10:09:00 Test Item Value Reference Range Interpretation Comments PTT (test code = PTT) 41.4 s 22.9-35.8 [facility] SurgeryLgcwhaoQTLNMMTWXT4480-10-16 10:09:00 Test Item Value Reference Range Interpretation Comments PT (test code = PT) 15.4 s 12.0-14.7 [facility] SurgeryNebffaaQXHJRGIRHJ6541-92-09 10:09:00 Test Item Value Reference Range Interpretation Comments INR (test code = INR) 1.24 1 0.85-1.17 [facility] SurgeryBfzbeopKDHEPGBBSA8779-36-24 10:09:00 Test Item Value Reference Range Interpretation Comments Fibrinogen Lvl (test code = Fibrinogen 312 230-510 Lvl) [facility] SurgeryIamwmscVNJKZWGNAD3356-67-82 10:09:00 Test Item Value Reference Range Interpretation Comments Thrombin Time (test code = Thrombin 16.6 s 15.0-21.2 Time) [facility] HospitalIntmqyaLMENEXDYOR7337-76-26 10:09:00 Test Item Value Reference Range Interpretation Comments D-Dimer (test code = D-Dimer) 4.91 [facility] HospitalYjtjoymISOHRZIHIY9507-80-58 10:09:00 Test Item Value Reference Range Interpretation Comments Basophils # (test code 0.1 See_Comment [Aut omated message] The = Basophils #) system which generated this result tra nsmitted reference range : <=0.2. The reference r leo was not used to int erpret this result as normal/abnormal . [facility] DZOKDPIFE3050-24-17 10:09:00 Test Item Value Reference Range Interpretation Comments Hgb A1C (test code = Hgb A1C) 5.6 [facility]andCHEM [id number] 09:07:00 Test Item Value Reference Range Interpretation Comments Amylase Lvl (test code = Amylase Lvl) 4 25-115 [facility]andRatvgbsNDUAXKSYFF1221-09-18 09:07:00 Test Item Value Reference Range Interpretation Comments Thrombin Time (test code = Thrombin 18.0 s 15.0-21.2 Time) [facility] SurgeryFyibzdaKUQOIGNPRX8769-63-13 09:07:00 Test Item Value Reference Range Interpretation Comments PT (test code = PT) 24.6 s 12.0-14.7 [facility] SurgeryEpchkzuFSDWKPEEGC6459-91-60 09:07:00 Test Item Value Reference Range Interpretation Comments INR (test code = INR) 2.31 1 0.85-1.17 [facility]andFsluebpOGUTYALZNC7513-46-16 09:07:00 Test Item Value Reference Range Interpretation Comments PTT (test code = PTT) 57.5 s 22.9-35.8 [facility]ellandXnrcfmjKTSMKWFCFO2900-31-11 09:07:00 Test Item Value Reference Range Interpretation Comments Fibrinogen Lvl (test code = Fibrinogen 125 230-510 Lvl) [facility]ellandQpjmwrnGKWQKHWXTG5806-78-54 09:07:00 Test Item Value Reference Range Interpretation Comments D-Dimer (test code = D-Dimer) 2.28 [facility] [id number] 04:52:00 Test Item Value Reference Range Interpretation Comments RBC product (test code Product available = RBC product) (01/21/21 11:52 PM) [facility] DallasConnectFuAC [id number] 00:38:00 Test Item Value Reference Range Interpretation Comments Troponin-I (test code no gt See_Comment [Auto mated message] The = Troponin-I) system which g enerated this result transmit rohit reference range : <=0.40. The reference r leo was not used to interpr et this result as reji l/abnormal. [facility]ConnectFu [id number] 17:47:00 Test Item Value Reference Range Interpretation Comments BNP (test code = BNP) 2324 [facility]Connect[facility]AC [id number] 17:47:00 Test Item Value Reference Range Interpretation Comments Troponin-I (test code 0.02 See_Comment [Auto mated message] The = Troponin-I) system which g enerated this result transmit rohit reference range : <=0.40. The reference r leo was not used to interpr et this result as reji l/abnormal. [facility] DallasEfpceguNSZPJJLAST5695-07-01 17:47:00 Test Item Value Reference Range Interpretation Comments Hep Bs Ag (test code Negative *NA*(01/21/21 = Hep Bs Ag) 12:47 PM) [facility] [employer] [id number] 17:43:00 Test Item Value Reference Range Interpretation Comments B/C Ratio (test code = B/C Ratio) 5 1 6-25 [facility] [id number] 17:43:00 Test Item Value Reference Range Interpretation Comments ALT (test code = ALT) 66 See_Comment [Auto mated message] The system which ge nerated this result transmit rohit reference range : <=65. The reference range was not used to interpr et this result as reji l/abnormal. [employer]2021-08-03 17:43:00 Test Item Value Reference Range Interpretation Comments Albumin Lvl (test code = Albumin Lvl) 3.0 3.5-5.0 [employer]2021-08-03 17:43:00 Test Item Value Reference Range Interpretation Comments Alk Phos (test code = Alk Phos) 40 39-136 [facility] [employer] [id number] 17:43:00 Test Item Value Reference Range Interpretation Comments Bili Total (test code = Bili Total) 0.5 0.2-1.3 [facility] [employer]2021-08-03 17:43:00 Test Item Value Reference Range Interpretation Comments Total Protein (test code = Total 5.7 6.4-8.4 Protein) [employer]2021-08-03 17:43:00 Test Item Value Reference Range Interpretation Comments AST (test code = AST) 52 See_Comment [Auto mated message] The system which ge nerated this result transmit rohit reference range : <=37. The reference range was not used to interpr et this result as reji l/abnormal. [employer] [id number] 17:43:00 Test Item Value Reference Range Interpretation Comments Globulin (test code = Globulin) 2.7 2.7-4.2 [employer]2021-08-03 17:43:00 Test Item Value Reference Range Interpretation Comments A/G Ratio (test code = A/G Ratio) 1.1 1 0.7-1.6 [employer]2021-08-03 17:43:00 Test Item Value Reference Range Interpretation Comments Lactic Acid Lvl (test code = Lactic 1.1 0.5-2.2 Acid Lvl) [employer] [id number] 16:20:00 Test Item Value Reference Range Interpretation Comments ABO/Rh (test code = ABO/Rh) B POS [facility] [employer] [id number] 16:20:00 Test Item Value Reference Range Interpretation Comments Antibody Scrn (test Negative (8/21 11:20 code = Antibody Scrn) AM) [facility]ellandUxmifojYPUHYPADHA5481-03-27 16:20:00 Test Item Value Reference Range Interpretation Comments Anisocyte (test code = 1+ *ABN*(01/21/21 Anisocyte) 11:20 AM) [facility]REFERECAROM[facility] [id number] 15:35:00 Test Item Value Reference Range Interpretation Comments Lactase Lvl (test code = Lactase Lvl) 2.0 [facility]andREFC[facility] [id number] 15:35:00 Test Item Value Reference Range Interpretation Comments Sucrase Lvl (test code = Sucrase Lvl) 38.6 [facility] [id number] 15:35:00 Test Item Value Reference Range Interpretation Comments Maltase Lvl (test code = Maltase Lvl) 177.2 [facility] [id number] 15:35:00 Test Item Value Reference Range Interpretation Comments Palatinase Lvl (test code = Palatinase 13.8 Lvl) [facility] DallasDvapmhfNRKAMIRQGZCG2334-09-02 13:21:00 Test Item Value Reference Range Interpretation Comments Potassium WB (test code = Potassium WB) 5.1 3.5-5.1 [facility]ellandMhvnpmcCOFAIPHKENIVX4242-82-34 13:21:00 Test Item Value Reference Range Interpretation Comments S Preg (test code = S Negative 8*NA*(01/21/21 Preg) 8:21 AM) [facility]ellandTbvoikqGUJAAZXCPU3998-51-08 11:19:00 Test Item Value Reference Range Interpretation Comments Coronavirus (COVID-19) Not Detected (01/21/21 EMANUEL (test code = 6:19 AM) Coronavirus (COVID-19) EMANUEL) [facility] Inawfgi1115-50-34 16:39:05 Test Item Value Reference Range Interpretation Comments Glucose POC (test 183 mg/dL 70-115 H If you con vp product your code = Glucose POC) patient critically ill, the Merlin-Accu Check Infrom II meter should not be used for Glucose determination. Draw a venous Glucose and send to the main Lab for analysis. Urine Kvsxbbp8347-67-73 11:32:13 Test Item Value Reference Range Interpretation [...] Escherichia coli C Urine Added by GL_SJM_UA_CUL_INDPOC Hxnuuoo5318-71-82 07:52:10 Test Item Value Reference Range Interpretation Comments Glucose POC (test 160 mg/dL 70-115 H If you con vp product your code = Glucose POC) patient critically ill, the Merlin-Accu Check Infrom II meter should not be used for Glucose determination. Draw a venous Glucose and send to the main Lab for analysis. POC Hvrnojz4867-43-91 19:32:05 Test Item Value Reference Range Interpretation Comments Glucose POC (test 184 mg/dL 70-115 H If you con vp product your code = Glucose POC) patient critically ill, the Merlin-Accu Check Infrom II meter should not be used for Glucose determination. Draw a venous Glucose and send to the main Lab for analysis. POC Nrzelwc5906-37-03 17:16:35 Test Item Value Reference Range Interpretation Comments Glucose POC (test 281 mg/dL 70-115 H Notify RN or MDIf you code = Glucose POC) consider your patient critically ill, the Merlin-Accu Chec k Infrom II meter should not be used for Glucos e determination. Draw a venous Glucose and send to the main Lab for analysis. POC Wsjynyp0690-04-99 12:00:38 Test Item Value Reference Range Interpretation Comments Glucose POC (test 138 mg/dL 70-115 H Notify RN or MDIf you code = Glucose POC) consider your patient critically ill, the Merlin-Accu Chec k Infrom II meter should not be used for Glucos e determination. Draw a venous Glucose and send to the main Lab for analysis. POC Kggbfya2928-30-52 07:41:32 Test Item Value Reference Range Interpretation Comments Glucose POC (test 206 mg/dL 70-115 H Notify RN or MDIf you code = Glucose POC) consider your patient critically ill, the Merlin-Accu Chec k Infrom II meter should not be used for Glucos e determination. Draw a venous Glucose and send to the main Lab for analysis. Urinalysis Uklgkrvooxu7778-24-74 21:07:21 Test Item Value Reference Range Interpretation Comments UA WBC (test code = UA WBC) TNTC 0-5 A UA RBC (test code = UA RBC) 6-10 0-5 A UA Bacteria (test code = UA Bacteria) Profuse A UA Squam Epithelial (test code = UA 6-10 A Squam Epithelial) Urinalysis with Culture, if ewowqsgbq0096-78-28 20:35:14 Test Item Value Reference Range Interpretation [...] Micro Indicated Not Indicated A Ind?) POC [id number] 19:06:34 Test Item Value Reference Range Interpretation Comments Glucose POC (test 207 mg/dL 70-115 H If you con vp product your code = Glucose POC) patient critically ill, the Merlin-Accu Check Infrom II meter should not be used for Glucose determination. Draw a venous Glucose and send to the main Lab for analysis. POC Hrcwngp8696-35-07 17:12:03 Test Item Value Reference Range Interpretation Comments Glucose POC (test 173 mg/dL 70-115 H Notify RN or MDIf you code = Glucose POC) consider your patient critically ill, the Merlin-Accu Chec k Infrom II meter should not be used for Glucos e determination. Draw a venous Glucose and send to the main Lab for analysis. POC Zqvtdis3027-09-58 11:58:01 Test Item Value Reference Range Interpretation Comments Glucose POC (test 289 mg/dL 70-115 H Notify RN or MDIf you code = Glucose POC) consider your patient critically ill, the Merlin-Accu Chec k Infrom II meter should not be used for Glucos e determination. Draw a venous Glucose and send to the main Lab for analysis. POC [id number] 08:19:37 Test Item Value Reference Range Interpretation Comments Glucose POC (test 201 mg/dL 70-115 H Notify RN or MDIf you code = Glucose POC) consider your patient critically ill, the Merlin-Accu Chec k Infrom II meter should not be used for Glucos e determination. Draw a venous Glucose and send to the main Lab for analysis. POC Iiqbhst4853-12-31 20:37:35 Test Item Value Reference Range Interpretation Comments Glucose POC (test 272 mg/dL 70-115 H If you con vp product your code = Glucose POC) patient critically ill, the Merlin-Accu Check Infrom II meter should not be used for Glucose determination. Draw a venous Glucose and send to the main Lab for analysis. POC Kjawtey0101-04-07 17:23:05 Test Item Value Reference Range Interpretation Comments Glucose POC (test 229 mg/dL 70-115 H If you con vp product your code = Glucose POC) patient critically ill, the Merlin-Accu Check Infrom II meter should not be used for Glucose determination. Draw a venous Glucose and send to the main Lab for analysis. POC Uzhsgwy7637-07-36 12:01:01 Test Item Value Reference Range Interpretation Comments Glucose POC (test 155 mg/dL 70-115 H If you con vp product your code = Glucose POC) patient critically ill, the Merlin-Accu Check Infrom II meter should not be used for Glucose determination. Draw a venous Glucose and send to the main Lab for analysis. POC Eoihpvb4541-87-38 08:07:32 Test Item Value Reference Range Interpretation Comments Glucose POC (test 248 mg/dL 70-115 H If you con vp product your code = Glucose POC) patient critically ill, the Merlin-Accu Check Infrom II meter should not be used for Glucose determination. Draw a venous Glucose and send to the main Lab for analysis. IG [id number] 06:50:39 Test Item Value Reference Range Interpretation Comments IG (test code = IG) 0.7 % 0.0-5.0 IG Abs (test code = IG Abs) 0 x10 N Complete Blood Count with Vscqisbsklyj9584-04-30 06:50:38 Test Item Value Reference Range Interpretation [...] code = IPF) 0 % N Automated Niwwcqdemjnx4913-96-65 06:50:38 Test Item Value Reference Range Interpretation Comments Neutro Auto (test code = Neutro 50.3 % 36.0-70.0 Auto) Lymph Auto (test code = Lymph Auto) 38.6 % 12.0-44.0 Cache Auto (test code = Cache Auto) 7.3 % 0.0-11.0 Eos, Auto (test code = Eos, Auto) 2.4 % 0.0-7.0 Basophil Auto (test code = Basophil 0.7 % 0.0-2.0 Auto) Neutro Absolute (test code = Neutro 3.0 x10 1.6-7.4 Absolute) Lymph Absolute (test code = Lymph 2.28 x10 .50-4.60 Absolute) Cache Absolute (test code = Cache .43 x10 .00-1.20 Absolute) Eos Absolute (test code = Eos 0.14 x10 0.00-0.74 Absolute) Baso Absolute (test code = Baso 0.04 x10 0.00-0.21 Absolute) Basic Metabolic [id number] 05:38:20 Test Item Value Reference Range Interpretation [...] = Lipemia) 0 mg/dL 8-11 Basic Metabolic Cczxd0616-26-45 05:38:20 Test Item Value Reference Range Interpretation [...] = 0 mg/dL 8-11 Lipemia) Basic Metabolic [id number] 05:38:20 Test Item Value Reference Range Interpretation [...] code = 0 mg/dL 8-11 Lipemia) POC [id number] 20:28:33 Test Item Value Reference Range Interpretation Comments Glucose POC (test 169 mg/dL 70-115 H If you con vp product your code = Glucose POC) patient critically ill, the Merlin-Accu Check Infrom II meter should not be used for Glucose determination. Draw a venous Glucose and send to the main Lab for analysis. POC [id number] 16:39:30 Test Item Value Reference Range Interpretation Comments Glucose POC (test 103 mg/dL 70-115 If you con vp product your code = Glucose POC) patient critically ill, the Merlin-Accu Check Infrom II meter should not be used for Glucose determination. Draw a venous Glucose and send to the main Lab for analysis. RPR [id number] 12:08:56 Test Item Value Reference Range Interpretation Comments RPR Qual (test code = RPR Qual) Non-Reactive Non-Reactive Reactive Control (test code = Reactive Reactive Control) Weak Reactive Control (test Weak Reactive code = Weak Reactive Control) Non-Reactive Control (test code Non-Reactive = Non-Reactive Control) Lot # (test code = Lot #) [id number] Expiration Dt (test code = 03-20-2021 N Expiration Dt) POC [id number] 11:52:31 Test Item Value Reference Range Interpretation Comments Glucose POC (test 250 mg/dL 70-115 H If you con vp product your code = Glucose POC) patient critically ill, the Merlin-Accu Check Infrom II meter should not be used for Glucose determination. Draw a venous Glucose and send to the main Lab for analysis. POC [id number] 07:55:29 Test Item Value Reference Range Interpretation Comments Glucose POC (test 205 mg/dL 70-115 H If you con vp product your code = Glucose POC) patient critically ill, the Merlin-Accu Check Infrom II meter should not be used for Glucose determination. Draw a venous Glucose and send to the main Lab for analysis. Lipid [id number] 05:46:04 Test Item Value Reference Range Interpretation [...] LDL/HDL Ratio=L DL Calc/HDL Chol Thyroid Stimulating [id number] 05:46:04 Test Item Value Reference Range Interpretation Comments TSH (test code = TSH) 3.274 mcIU/mL 0.550-4.780 Hemoglobin [id number] 05:41:08 Test Item Value Reference Range Interpretation Comments Hemoglobin A1c (test code 7.6 % 4.0-5.8 H Di abetic >=6.5 = Hemoglobin A1c) %Prediabet es 5.7-6.4 %Normal <5.7 % Hepatitis B Surface [id number] 21:19:36 Test Item Value Reference Range Interpretation Comments Hep Bs Ag (test code = Hep Bs Non-Reactive Non-Reactive Ag) Novel Coronavirus SARS-CoV-2, [id number] 11:16:16 Test Item Value Reference Range Interpretation [...] Emergency Use Authorization." Novel Coronavirus (COVID-19), EMANUEL [id number] 11:11:24TNPTest not sent and performed at [facility].Rapid was perfomed in Microbiology.Wrong covid test was ord ered.Urine DOA [id number] 00:17:49 Test Item Value Reference Range Interpretation [...] Propoxyphene Confirmation wi thin 7 days. Alcohol [id number] 00:17:29 Test Item Value Reference Range Interpretation Comments Ethanol Level 9.0 mg/dL N The pharmacolo gical (test code = response to blo od alcohol Ethanol Level) levels may va ry from individual to i ndividual. The fatal omkar ntration has been report ed to be >400 mg/dl. Comprehensive Metabolic [id number] 00:17:28 Test Item Value Reference Range Interpretation [...] = Lipemia) 0 g/dL 1-2 Comprehensive Metabolic [id number] 00:17:28 Test Item Value Reference Range Interpretation [...] = 0 g/dL 1-2 Lipemia) Comprehensive Metabolic [id number] 00:17:28 Test Item Value Reference Range Interpretation [...] g/dL 1-2 Lipemia) Complete Blood Count with [id number] 23:26:28 Test Item Value Reference Range Interpretation [...] code = IPF) 0 % N Automated [id number] 23:26:28 Test Item Value Reference Range Interpretation Comments Neutro Auto (test code = Neutro 67.1 % 36.0-70.0 Auto) Lymph Auto (test code = Lymph Auto) 23.3 % 12.0-44.0 Cache Auto (test code = Cache Auto) 5.8 % 0.0-11.0 Eos, Auto (test code = Eos, Auto) 2.3 % 0.0-7.0 Basophil Auto (test code = Basophil 0.8 % 0.0-2.0 Auto) Neutro Absolute (test code = Neutro 6.0 x10 1.6-7.4 Absolute) Lymph Absolute (test code = Lymph 2.10 x10 .50-4.60 Absolute) Cache Absolute (test code = Cache .52 x10 .00-1.20 Absolute) Eos Absolute (test code = Eos 0.21 x10 0.00-0.74 Absolute) Baso Absolute (test code = Baso 0.07 x10 0.00-0.21 Absolute) IG [id number] 23:26:28 Test Item Value Reference Range Interpretation Comments IG (test code = IG) 0.7 % 0.0-5.0 IG Abs (test code = IG Abs) 0 x10 N HERPES VIRUS ANTIBODY, [id number] 21:46:00 Test Item Value Reference Range Interpretation Comments HERPES VIRUS IGM (AKER) Negative SE E ATTACHMENT (test code = 1808) BLOOD [id number] 06:00:00 Test Item Value Reference Range Interpretation Comments CULTURE (BEAKER) (test No growth in 5 days code = 1095) BLOOD [id number] 06:00:00 Test Item Value Reference Range Interpretation Comments CULTURE (BEAKER) (test No growth in 5 days code = 1095) POCT-GLUCOSE [id number] 12:11:00 Test Item Value Reference Range Interpretation Comments POC-GLUCOSE METER 154 mg/dL 70-110 H TESTED AT [place] [address] ([facility]) (test code = [facility] 1538) [address] POCT-GLUCOSE [id number] 07:53:00 Test Item Value Reference Range Interpretation Comments POC-GLUCOSE METER 87 mg/dL 70-110 TESTED AT [place] [address] ([facility]) (test code = [facility] [address] 1538) POCT-GLUCOSE [id number] 06:49:00 Test Item Value Reference Range Interpretation Comments POC-GLUCOSE METER 79 mg/dL 70-110 TESTED AT [place] [address] ([facility]) (test code = [facility] [address] 1538) COMPREHENSIVE METABOLIC [id number] 06:15:00 Test Item Value Reference Range Interpretation Comments TOTAL PROTEIN 5.1 gm/dL 6.0-8.3 L ([facility]) (test code = 770) ALBUMIN ([facility]) 2.2 g/dL 3.5-5.0 L (test code = 1145) ALKALINE PHOSPHATASE 78 U/L 40-150 ([facility]) (test code = 346) BILIRUBIN TOTAL 1.1 mg/dL 0.2-1.2 ([facility]) (test code = 377) SODIUM (BEAKER) [...] S NOT APPLICABLE FOR DIALYSIS PATIEN TS. [id number] 06:11:00 Test Item Value Reference Range Interpretation Comments MAGNESIUM (BEAKER) (test code = 2.1 mg/dL 1.6-2.6 627) HEPATIC FUNCTION [id number] 06:11:00 Test Item Value Reference Range Interpretation [...] code = 513 U/L 6-55 H 347) [id number] 05:30:00 Test Item Value Reference Range Interpretation Comments FIBRINOGEN LEVEL ([facility]) (test 368 mg/dl 225-434 code = 658) [id number] 05:30:00 Test Item Value Reference Range Interpretation Comments PARTIAL THROMBOPLASTIN TIME 42.2 seconds 22.5-36.0 H ([facility]) (test code = 760) PROTHROMBIN [id number] 05:29:00 Test Item Value Reference Range Interpretation Comments PROTIME ([facility]) (test code = 14.8 seconds 11.7-14.7 H 759) INR ([facility]) (test code = 370) 1.2 <=5.9 RECOMMENDED COUMADIN/WARFARIN INR THERAPY RANGESSTANDARD DOSE: 2.0 - 3.0 Includes: PROPHYLAXIS forvenous thrombosis, systemic embolization; TREATMENT for venous thrombosis and/or pulmonary embolus.HIGH RISK: Target INR is 2.5-3.5 for patients with mechanical heart valves.POCT-GLUCOSE [id number] 21:09:00 Test Item Value Reference Range Interpretation Comments POC-GLUCOSE METER 178 mg/dL 70-110 H TESTED AT [place] [address] ([facility]) (test code = [facility] [place] 1538) [address] POCT-GLUCOSE [id number] 17:18:00 Test Item Value Reference Range Interpretation Comments POC-GLUCOSE METER 178 mg/dL 70-110 H TESTED AT [place] [address] ([facility]) (test code = [facility] [place] 1538) [address] POCT-GLUCOSE [id number] 13:48:00 Test Item Value Reference Range Interpretation Comments POC-GLUCOSE METER 150 mg/dL 70-110 H TESTED AT [place] [address] ([facility]) (test code = [facility] [place] 1538) [address] FACTOR 5 ACTIVITY (BLEEDING RISK)2017-01-06 10:04:00 Test Item Value Reference Range Interpretation Comments FACTOR V ACTIVITY ([facility]) (test code 90.0 % 60.0-150.0 = 665) Effective 10/24/2013: Reference Range Change-Adult onlyNew: 60.0-150.0 Previous: 50.0-150.0CYTOMEGALOVIRUS ANTIBODY, [id number] 09:42:00 Test Item Value Reference Range Interpretation Comments CYTOMEGALOVIRUS IGM ANTIBODY Negative (BEAKER) (test code = 816) HERPES VIRUS ANTIBODY, [id number] 08:59:00 Test Item Value Reference Range Interpretation Comments 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 G 1807) CYTOMEGALOVIRUS ANTIBODY, [id number] 08:59:00 Test Item Value Reference Range Interpretation Comments CYTOMEGALOVIRUS IGG ANTIBODY Positive (BEAKER) (test code = 790) EBV-VCA ANTIBODY, [id number] 08:59:00 Test Item Value Reference Range Interpretation Comments JASE-WALL VCA IGG (BEAKER) (test Positive code = 983) EBV-VCA ANTIBODY, [id number] 08:59:00 Test Item Value Reference Range Interpretation Comments JASE-WALL VCA IGM (BEAKER) (test Negative code = 984) POCT-GLUCOSE [id number] 07:59:00 Test Item Value Reference Range Interpretation Comments POC-GLUCOSE METER 81 mg/dL 70-[address] [facility] [address] ([facility]) (test code = [place] [facility] [address] 1538) COMPREHENSIVE METABOLIC [id number] 06:23:00 Test Item Value Reference Range Interpretation [...] S NOT APPLICABLE FOR DIALYSIS PATIEN TS. [id number] 06:17:00 Test Item Value Reference Range Interpretation Comments MAGNESIUM (BEAKER) (test code = 1.8 mg/dL 1.6-2.6 627) HEPATIC FUNCTION [id number] 06:17:00 Test Item Value Reference Range Interpretation [...] code = 779 U/L 6-55 H 347) [id number] 06:00:00 Test Item Value Reference Range Interpretation Comments FIBRINOGEN LEVEL (BEAKER) (test 390 mg/dl 225-434 code = 658) [id number] 06:00:00 Test Item Value Reference Range Interpretation Comments PARTIAL THROMBOPLASTIN TIME 40.2 seconds 22.5-36.0 H (BEAKER) (test code = 760) PROTHROMBIN [id number] 05:59:00 Test Item Value Reference Range Interpretation Comments PROTIME (BEAKER) (test code = 14.6 seconds 11.7-14.7 759) INR (BEAKER) (test code = 370) 1.2 <=5.9 RECOMMENDED COUMADIN/WARFARIN INR THERAPY RANGESSTANDARD DOSE: 2.0 - 3.0 Includes: PROPHYLAXIS forvenous thrombosis, systemic embolization; TREATMENT for venous thrombosis and/or pulmonary embolus.HIGH RISK: Target INR is 2.5-3.5 for patients with mechanical heart valves.POCT-GLUCOSE [id number] 21:46:00 Test Item Value Reference Range Interpretation Comments POC-GLUCOSE METER 153 mg/dL 70-110 H TESTED AT [place] [address] ([facility]) (test code = [facility] 1538) [address] POCT-GLUCOSE [id number] 18:47:00 Test Item Value Reference Range Interpretation Comments POC-GLUCOSE METER 181 mg/dL 70-110 H TESTED AT [place] [address] ([facility]) (test code = [facility] 1538) [address] POCT-GLUCOSE [id number] 12:40:00 Test Item Value Reference Range Interpretation Comments POC-GLUCOSE METER 178 mg/dL 70-110 H TESTED AT [place] [address] ([facility]) (test code = [facility] 1538) [address] POCT-GLUCOSE [id number] 07:51:00 Test Item Value Reference Range Interpretation Comments POC-GLUCOSE METER 166 mg/dL 70-110 H TESTED AT [place] [address] ([facility]) (test code = [facility] 1538) [address] COMPREHENSIVE METABOLIC [id number] 03:26:00 Test Item Value Reference Range Interpretation Comments TOTAL PROTEIN 5.2 gm/dL 6.0-8.3 L (AKER) (test code = 770) ALBUMIN (BEAKER) 2.3 [...] S NOT APPLICABLE FOR DIALYSIS PATIEN TS. [id number] 03:22:00 Test Item Value Reference Range Interpretation Comments MAGNESIUM (BEAKER) (test code = 1.4 mg/dL 1.6-2.6 L 627) HEPATIC FUNCTION [id number] 03:22:00 Test Item Value Reference Range Interpretation [...] code = 1009 U/L 6-55 H 347) [id number] 03:12:00 Test Item Value Reference Range Interpretation Comments AMMONIA (BEAKER) (test code = 348) 29 mol/L 18-72 [id number] 03:10:00 Test Item Value Reference Range Interpretation Comments PARTIAL THROMBOPLASTIN TIME 42.3 seconds 22.5-36.0 H (BEAKER) (test code = 760) PROTHROMBIN TIME/[id number] 03:09:00 Test Item Value Reference Range Interpretation Comments PROTIME (BEAKER) (test code = 16.4 seconds 11.7-14.7 H 759) INR (BEAKER) (test code = 370) 1.3 <=5.9 RECOMMENDED COUMADIN/WARFARIN INR THERAPY RANGESSTANDARD DOSE: 2.0 - 3.0 Includes: PROPHYLAXIS forvenous thrombosis, systemic embolization; TREATMENT for venous thrombosis and/or pulmonary embolus.HIGH RISK: Target INR is 2.5-3.5 for patients with mechanical heart valves.[id number] 03:09:00 Test Item Value Reference Range Interpretation Comments FIBRINOGEN LEVEL (BEAKER) (test 413 mg/dl 225-434 code = 658) CBC W/PLT COUNT & AUTO [id number] 03:09:00 Test Item Value Reference Range Interpretation [...] L 0.00-0.20 (test code = 417) 0.00POCT-GLUCOSE [id number] 22:33:00 Test Item Value Reference Range Interpretation Comments POC-GLUCOSE METER 230 mg/dL 70-[address] [facility] [address] [facility] (test code = [facility] 1538) [address] POCT-GLUCOSE [id number] 18:17:00 Test Item Value Reference Range Interpretation Comments POC-GLUCOSE METER 222 mg/dL 70-110 H [facility] [place] [address] [facility] (test code = [facility] 1538) [address] COMPREHENSIVE METABOLIC [id number] 16:59:00 Test Item Value Reference Range Interpretation [...] PATIEN TS. PERIPHERAL BLOOD SMEAR - PATHOLOGIST [id number] 15:30:00 Test Item Value Reference Range Interpretation Comments RBC MORPHOLOGY Polychromasia (BEAKER) (test code = 2846) RBC MORPHOLOGY Anisocytosis (BEAKER) (test code = 17130) PERIPHERAL SMR REVIEW Cell counts confirmed (BEAKER) (test code = 2640) [id number] Josefina Lara M.D. (BEAKER) (test code = (electronic signature) 9389) PROTHROMBIN [id number] 15:12:00 Test Item Value Reference Range Interpretation [...] Negative Negative (test code = 418) POCT-GLUCOSE [id number] 12:47:00 Test Item Value Reference Range Interpretation Comments POC-GLUCOSE METER 212 mg/dL 70-[address] [facility] [address] ([facility]) (test code = [place] 1538) [address] [id number] 12:34:00 Test Item Value Reference Range Interpretation Comments RPR SCREEN ([facility]) (test code = Nonreactive Nonreactive 420) CLOSTRIDIUM DIFFICILE TOXIN [id number] 10:12:00 Test Item Value Reference Range Interpretation [...] Reference Range Change-Adult onlyNew: 60.0-150.0 Previous: 50.0-150.0POCT-GLUCOSE [id number] 06:40:00 Test Item Value Reference Range Interpretation Comments POC-GLUCOSE METER 167 mg/dL 70-[address] [facility] [address] (BEAKER) (test code = [place] 1538) [address] COMPREHENSIVE METABOLIC [id number] 04:08:00 Test Item Value Reference Range Interpretation [...] ESTIM ATED GFR. Specimen slightly ictericHEPATIC FUNCTION [id number] 04:06:00 Test Item Value Reference Range Interpretation [...] 1091 U/L 6-55 H 347) Specimen slightly [id number] 04:01:00 Test Item Value Reference Range Interpretation Comments FIBRINOGEN LEVEL (BEAKER) (test 379 mg/dl 225-434 code = 658) [id number] 04:01:00 Test Item Value Reference Range Interpretation Comments PARTIAL THROMBOPLASTIN TIME 40.7 seconds 22.5-36.0 H (BEAKER) (test code = 760) PROTHROMBIN [id number] 04:00:00 Test Item Value Reference Range Interpretation [...] L 0.00-0.20 (test code = 417) 0.00POCT-GLUCOSE [id number] 00:19:00 Test Item Value Reference Range Interpretation Comments POC-GLUCOSE METER 159 mg/dL 70-[address] [facility] [address] ([facility]) (test code = [place] 1538) [address] POCT-GLUCOSE [id number] 18:56:00 Test Item Value Reference Range Interpretation Comments POC-GLUCOSE METER 192 mg/dL 70-[address] [facility] [address] [facility] (test code = [place] 1538) [address] COMPREHENSIVE METABOLIC [id number] 16:55:00 Test Item Value Reference Range Interpretation [...] CALCULATE ESTIM ATED GFR. Specimen slightly ictericPROTHROMBIN [id number] 16:37:00 Test Item Value Reference Range Interpretation Comments PROTIME (BEAKER) (test code = 20.9 seconds 11.7-14.7 H 759) INR (BEAKER) (test code = 370) 1.8 <=5.9 RECOMMENDED COUMADIN/WARFARIN INR THERAPY RANGESSTANDARD DOSE: 2.0 - 3.0 Includes: PROPHYLAXIS forvenous thrombosis, systemic embolization; TREATMENT for venous thrombosis and/or pulmonary embolus.HIGH RISK: Target INR is 2.5-3.5 for patients with mechanical heart valves.HEPATITIS B SURFACE [id number] 14:05:00 Test Item Value Reference Range Interpretation Comments HEPATITIS B SURFACE ANTIBODY < mIU/mL <8.0 (BEAKER) (test code = 647) HEPATITIS B CORE ANTIBODY, [id number] 13:43:00 Test Item Value Reference Range Interpretation Comments HEPATITIS B CORE TOTAL ANTIBODY Nonreactive Nonreactive (BEAKER) (test code = 497) BLOOD GAS, [id number] 13:35:00 Test Item Value Reference Range Interpretation [...] code = 1819) 28.0 % URINALYSIS W/ [id number] 13:16:00 Test Item Value Reference Range Interpretation [...] 1584) SOURCE(BEAKER) (test code = Urine, [place] 4238) VITAMIN D, 63-[id number] 13:14:00 Test Item Value Reference Range Interpretation Comments VITAMIN D 25-OH (BEAKER) (test code = < ng/mL 13.0-47.8 L 2764) ALPHA FETOPROTEIN (AFP), TUMOR [id number] 13:06:00 Test Item Value Reference Range Interpretation Comments ALPHA-FETOPROTEIN (BEAKER) (test code < ng/mL <10.0 = 1094) Effective 05/08/2014: Reference Range ChangeNew: <10.0 Previous: 0.0-8.0 HEMOGLOBIN [id number] 13:05:00 Test Item Value Reference Range Interpretation Comments HEMOGLOBIN A1C (BEAKER) (test code = 7.6 % 4.3-6.1 H 368) CARCINOEMBRYONIC ANTIGEN (CEA)2017-01-03 12:59:00 Test Item Value Reference Range Interpretation Comments CARCINOEMBRYONIC ANTIGEN (BEAKER) 2.0 ng/mL 0.0-5.0 (test code = 685) [id number] 12:59:00 Test Item Value Reference Range Interpretation Comments FERRITIN (BEAKER) (test code = 1841 ng/mL 5-275 H 361) Effective 05/08/2014: Reference Range ChangeNew: Male 5-275 Previous: Male 22-322 Female 5-275 Female [id number] 12:58:00 Test Item Value Reference Range Interpretation Comments T4 TOTAL (BEAKER) (test code = 895) 4.5 ug/dL 4.9-11.7 L [id number] 12:58:00 Test Item Value Reference Range Interpretation Comments THYROID STIMULATING HORMONE 1.79 uIU/mL 0.35-4.94 (BEAKER) (test code = 772) [id number] 12:58:00 Test Item Value Reference Range Interpretation Comments T3 TOTAL (BEAKER) (test code = 656) 34 ng/dL 48-159 L Effective 05/08/2014: Reference Range ChangeNew: 48-159 Previous: 60-181 CALCIUM, [id number] 12:47:00 Test Item Value Reference Range Interpretation Comments CALCIUM IONIZED (BEAKER) (test 1.05 mmol/L 1.12-1.27 L code = 698) PH, BLOOD (BEAKER) (test code = 7.43 1810) [id number] 12:42:00 Test Item Value Reference Range Interpretation [...] % 20-55 (test code = 2590) URIC [id number] 12:40:00 Test Item Value Reference Range Interpretation Comments URIC ACID (BEAKER) (test code = 16.0 mg/dL 2.6-7.2 H 773) Specimen slightly ictericLIPID [id number] 12:40:00 Test Item Value Reference Range Interpretation [...] 160-189 Very High >=190 Specimen slightly ictericBILIRUBIN, [id number] 12:40:00 Test Item Value Reference Range Interpretation Comments BILIRUBIN DIRECT (BEAKER) (test 2.4 mg/dL 0.1-0.5 H code = 706) GAMMA GLUTAMYL TRANSFERASE (GGT)2017-01-03 12:40:00 Test Item Value Reference Range Interpretation Comments GAMMA GLUTAMYL TRANSFERASE (CHANDNIAKER) 53 U/L 9-64 (test code = 364) Specimen slightly [id number] 12:39:00 Test Item Value Reference Range Interpretation Comments ETHANOL (MADIE) (test code = 400) < mg/dL <=10 SCREEN, [id number] 12:36:00 Test Item Value Reference Range Interpretation Comments TEST URINE (MADIE) (test Negative code = 583) POCT-GLUCOSE [id number] 12:34:00 Test Item Value Reference Range Interpretation Comments POC-GLUCOSE METER 189 mg/dL 70-[address] [facility] [address] ([facility]IE) (test code = [place] 1538) [address] HIV-1 ANTIGEN WITH HIV-1/2 [id number] 11:58:00 Test Item Value Reference Range Interpretation Comments HIV-1 ANTIGEN WITH HIV 1\\T\\2 Nonreactive Nonreactive ANTIBODY (2) (MADIE) (test code = 2586) TROPONIN [id number] 09:44:00 Test Item Value Reference Range Interpretation [...] Previous: 0.0-4.9CK-MB Reference Range:<6.7 Normal6.7-10.0 Borderline>10.0 AbnormalACETAMINOPHEN [id number] 08:31:00 Test Item Value Reference Range Interpretation Comments ACETAMINOPHEN LEVEL (BEAKER) (test < ug/mL 10.0-30.0 L code = 344) TROPONIN [id number] 05:53:00 Test Item Value Reference Range Interpretation [...] acute neurological disease, and persistent tachyarrhythmia.BASIC METABOLIC [id number] 05:53:00 Test Item Value Reference Range Interpretation [...] TO CALCULA TE ESTIMATED GFR. Specimen slightly [id number] 05:52:00 Test Item Value Reference Range Interpretation Comments PHOSPHORUS (BEAKER) (test code = 5.7 mg/dL 2.3-4.7 H 604) HEPATIC FUNCTION [id number] 05:52:00 Test Item Value Reference Range Interpretation [...] Specimen slightly ictericCREATINE KINASE (CK), TOTAL AND [id number] 05:52:00 Test Item Value Reference Range Interpretation Comments CREATINE KINASE TOTAL (BEAKER) 341 U/L 29-200 H (test code = 380) CREATINE KINASE-MB (BEAKER) (test 5.4 ng/mL 0.0-6.6 code = 750) CREATINE KINASE-MB INDEX (BEAKER) 1.6 % (test code = 395) Effective 05/08/2014: CK-MB Reference Range ChangeNew: 0.0-6.6 Previous: 0.0-4.9CK-MB Reference Range:<6.7 Normal6.7-10.0 Borderline>10.0 AbnormalCBC W/PLT COUNT & AUTO [id number] 05:48:00 Test Item Value Reference Range Interpretation [...] K/ L 0.00-0.20 (test code = 417) [id number] 05:09:00 Test Item Value Reference Range Interpretation Comments FIBRINOGEN LEVEL (BEAKER) (test 427 mg/dl 225-434 code = 658) [id number] 05:09:00 Test Item Value Reference Range Interpretation Comments PARTIAL THROMBOPLASTIN TIME 36.2 seconds 22.5-36.0 H (BEAKER) (test code = 760) PROTHROMBIN [id number] 05:08:00 Test Item Value Reference Range Interpretation Comments PROTIME (BEAKER) (test code = 22.8 seconds 11.7-14.7 H 759) INR (BEAKER) (test code = 370) 2.0 <=5.9 RECOMMENDED COUMADIN/WARFARIN INR THERAPY RANGESSTANDARD DOSE: 2.0 - 3.0 Includes: PROPHYLAXIS forvenous thrombosis, systemic embolization; TREATMENT for venous thrombosis and/or pulmonary embolus.HIGH RISK: Target INR is 2.5-3.5 for patients with mechanical heart valves.HEPATITIS PANEL, [id number] 03:40:00 Test Item Value Reference Range Interpretation Comments HEPATITIS A IGM ANTIBODY (BEAKER) Nonreactive Nonreactive (test code = 498) HEPATITIS B CORE IGM ANTIBODY Nonreactive Nonreactive (BEAKER) (test code = 645) HEPATITIS C ANTIBODY (BEAKER) Nonreactive Nonreactive (test code = 367) HEPATITIS B SURFACE ANTIGEN (2) Nonreactive Nonreactive (BEAKER) (test code = 2585) CREATININE, RANDOM [id number] 03:18:00 Test Item Value Reference Range Interpretation Comments CREATININE URINE (BEAKER) (test 118.7 mg/dL code = 375) Reference Range: No NormalsSODIUM, RANDOM [id number] 03:18:00 Test Item Value Reference Range Interpretation Comments SODIUM URINE (BEAKER) (test code = 60 meq/L 243) Reference Range: No NormalsUREA NITROGEN, RANDOM [id number] 03:18:00 Test Item Value Reference Range Interpretation Comments UREA NITROGEN URINE (BEAKER) (test 303 mg/dL code = 538) Reference Range: No [id number] 03:07:00 Test Item Value Reference Range Interpretation Comments AMMONIA (BEAKER) (test code = 348) 48 mol/L 18-72 [id number] 02:57:00 Test Item Value Reference Range Interpretation [...] within 95-100% range. URINALYSIS W/ REFLEX URINE [id number] 02:53:00 Test Item Value Reference Range Interpretation [...] /LPF = 514) SOURCE(BEAKER) (test code = 7089) [id number] 02:49:00 Test Item Value Reference Range Interpretation Comments PARTIAL THROMBOPLASTIN TIME 39.4 seconds 22.5-36.0 H (BEAKER) (test code = 760) PROTHROMBIN TIME/[id number] 02:48:00 Test Item Value Reference Range Interpretation Comments PROTIME (BEAKER) (test code = 22.0 seconds 11.7-14.7 H 759) INR (BEAKER) (test code = 370) 1.9 <=5.9 RECOMMENDED COUMADIN/WARFARIN INR THERAPY RANGESSTANDARD DOSE: 2.0 - 3.0 Includes: PROPHYLAXIS forvenous thrombosis, systemic embolization; TREATMENT for venous thrombosis and/or pulmonary embolus.HIGH RISK: Target INR is 2.5-3.5 for patients with mechanical heart valves.[id number] 02:48:00 Test Item Value Reference Range Interpretation Comments FIBRINOGEN LEVEL (BEAKER) (test 421 mg/dl 225-434 code = 658) BLOOD GAS, [id number] 02:43:00 Test Item Value Reference Range Interpretation [...] 21.0 % CBC W/PLT COUNT & AUTO [id number] 02:43:00 Test Item Value Reference Range Interpretation [...] code = 417) 0.00LACTIC ACID, VENOUS, WHOLE [id number] 02:35:00 Test Item Value Reference Range Interpretation Comments LACTATE BLOOD VENOUS (2) (BEAKER) 0.8 mmol/L 0.5-2.2 (test code = 2872) Effective 10/23/2015: Units/Reference Range ChangeNew: 0.5-2.2 mmol/L Previous: 5-20 mg/dLSpecimen slightly atxbybrGNZMODHHOKCF8013-49-38 11:32:00 Test Item Value Reference Range Interpretation Comments AGAP (test code = AGAP) 14.6 10.0-20.0 [facility] RfiaaqdGALRNMJTKTYS1709-27-38 11:32:00 Test Item Value Reference Range Interpretation Comments eGFR (test code = eGFR) 33 [facility]FetxemmPRNFQIBYYXKA5510-40-71 11:32:00 Test Item Value Reference Range Interpretation Comments Calcium Lvl (test code = Calcium Lvl) 8.3 8.5-10.5 [facility] HospitalFrgcwymLYIWWAMYXEIT0106-67-86 11:32:00 Test Item Value Reference Range Interpretation Comments Glucose Lvl (test code = Glucose Lvl) 81 70-99 [facility] HospitalMyiitxxZHWNRYXLZUQK1768-63-38 11:32:00 Test Item Value Reference Range Interpretation Comments Creatinine Lvl (test code = Creatinine 1.95 0.50-1.40 Lvl) [facility] HospitalGxkrfosSBNFTFRDOCNR2463-85-72 11:32:00 Test Item Value Reference Range Interpretation Comments BUN (test code = BUN) 55 7-22 [facility] HospitalXrvnswyKYNCTFEQVMLM5321-47-23 11:32:00 Test Item Value Reference Range Interpretation Comments CO2 (test code = CO2) 19 24-32 [facility] HospitalOemxajiVSEWAHPEGERN4851-34-56 11:32:00 Test Item Value Reference Range Interpretation Comments Chloride Lvl (test code = Chloride Lvl) 110 95-109 [facility] HospitalGzpsfywMYHTEMALLGET2763-95-09 11:32:00 Test Item Value Reference Range Interpretation Comments Sodium Lvl (test code = Sodium Lvl) 139 135-145 [facility] HospitalOznskhaIGSXNGUQOGAG6619-61-77 11:32:00 Test Item Value Reference Range Interpretation Comments Potassium Lvl (test code = Potassium 4.6 3.5-5.1 Lvl) [facility] HospitalNsdfmfiTRIZFPIPYU4220-63-57 11:32:00 Test Item Value Reference Range Interpretation Comments Lymphocytes (test code = Lymphocytes) 30.4 20.0-40.0 [facility] HospitalNtnnaxgBPXHZNXPAR2555-21-18 11:32:00 Test Item Value Reference Range Interpretation Comments Eosinophils (test code = 4.5 See_Comment [A utomated message] The Eosinophils) system which ge nerated this result tra nsmitted reference range : <=4.0. The reference r leo was not used to int erpret this result as normal/abnormal . [facility] HospitalUolkpedDFUABWBANL8599-89-31 11:32:00 Test Item Value Reference Range Interpretation Comments Monocytes (test code = Monocytes) 13.7 2.0-12.0 [facility] HospitalKkyzmeuEGWSUVVXUN0384-32-90 11:32:00 Test Item Value Reference Range Interpretation Comments Segs-Bands # (test code = Segs-Bands #) 2.6 1.5-8.1 [facility] HospitalVeakefsBJQEKTFUSF1279-96-98 11:32:00 Test Item Value Reference Range Interpretation Comments Basophils (test code = 0.7 See_Comment [Aut omated message] The Basophils) system which ge nerated this result tra nsmitted reference range : <=1.0. The reference r leo was not used to int erpret this result as normal/abnormal . [facility] HospitalUjtfswcRBFYRKNSDK3631-22-95 11:32:00 Test Item Value Reference Range Interpretation Comments Monocytes # (test code 0.7 See_Comment [Aut omated message] The = Monocytes #) system which generated this result tra nsmitted reference range : <=0.8. The reference r leo was not used to int erpret this result as normal/abnormal . [facility] HospitalQhxcmqdAMPMLRXJWB6548-29-05 11:32:00 Test Item Value Reference Range Interpretation Comments Lymphocytes # (test code = Lymphocytes 1.6 1.0-5.5 #) [facility] HospitalNffndjhMVHQTXJPHP5868-26-23 11:32:00 Test Item Value Reference Range Interpretation Comments Eosinophils # (test code 0.2 See_Comment [A utomated message] The = Eosinophils #) system whic h generated this result tra nsmitted reference range : <=0.5. The reference r leo was not used to int erpret this result as normal/abnormal . [facility] HospitalMndslkaWIUWCBKENB5599-16-69 11:32:00 Test Item Value Reference Range Interpretation Comments Segs (test code = Segs) 50.7 45.0-75.0 [facility] HospitalOwcirqnHTXICUGDEK8111-28-45 11:32:00 Test Item Value Reference Range Interpretation [...] iron deficiency anemia, and renal disease. CPT: 46911 [facility] HospitalPhszkgoIFRGWQHIZR8566-76-10 11:32:00 Test Item Value Reference Range Interpretation Comments Hct (test code = Hct) 28.1 36.0-48.0 [facility] HospitalXepvdcvEWTVDRIOGV0726-57-09 11:32:00 Test Item Value Reference Range Interpretation Comments RBC (test code = RBC) 3.39 4.20-5.40 [facility] HospitalKhjwlscFGWUHHLCIC3292-68-81 11:32:00 Test Item Value Reference Range Interpretation Comments Hgb (test code = Hgb) 8.9 12.0-16.0 [facility] HospitalCqlkrxeQCSFLLNZKZ1845-36-98 11:32:00 Test Item Value Reference Range Interpretation Comments WBC (test code = WBC) 5.1 3.7-10.4 [facility] HospitalErgmnuxPCNOATAMKU0627-66-25 11:32:00 Test Item Value Reference Range Interpretation Comments MPV (test code = MPV) 11.3 7.4-10.4 [facility] HospitalIaznjioKATKRYKWOZ9067-88-12 11:32:00 Test Item Value Reference Range Interpretation Comments Platelet (test code = Platelet) 118 133-450 [facility] HospitalDckibziKGUPBSGAVH8257-23-91 11:32:00 Test Item Value Reference Range Interpretation Comments MCHC (test code = MCHC) 31.8 32.0-36.0 [facility] HospitalJrmauuhMXWVZXKZVZ8320-92-69 11:32:00 Test Item Value Reference Range Interpretation Comments RDW (test code = RDW) 18.0 11.5-14.5 [facility] HospitalZbjqtfzSBMWAGJFOK7927-80-82 11:32:00 Test Item Value Reference Range Interpretation Comments MCV (test code = MCV) 83.0 80.0-98.0 [facility] HospitalPumokraGHMBTCSFOO3831-82-37 11:32:00 Test Item Value Reference Range Interpretation Comments MCH (test code = MCH) 26.4 pg 27.0-31.0 [facility]RzfwtrvHAGXKEEAHT6726-91-56 11:32:00 Test Item Value Reference Range Interpretation Comments C3 Complement (test code = C3 137 88-201 Complement) [facility]aKnwkbadGHUMJYRIYM0193-83-24 11:32:00 Test Item Value Reference Range Interpretation Comments HIV. (test code = Negative *NA*(07/30/16 HIV.) 5:32 AM) [facility] HospitalZsacqhqJQHIHRQNWQ6427-07-08 11:05:00 Test Item Value Reference Range Interpretation [...] iron deficiency anemia, and renal disease. CPT: 94429 [facility]TxzzucoRUHJANRDOF6202-78-83 11:05:00 Test Item Value Reference Range Interpretation Comments HIV. (test code = Negative *NA*(07/29/16 HIV.) 5:05 AM) [facility]aPwqnspaDOGSXQBEOU4965-40-13 11:05:00 Test Item Value Reference Range Interpretation Comments C3 Complement (test code = C3 92 88-201 Complement) [facility]2017-02-07 15:50:00 Test Item Value Reference Range Interpretation Comments eGFR (test code = eGFR) 25 [facility]2017-02-07 15:50:00 Test Item Value Reference Range Interpretation Comments BUN (test code = BUN) 55 7-22 [facility]2017-02-07 15:50:00 Test Item Value Reference Range Interpretation Comments CO2 (test code = CO2) 23 24-32 [facility]2017-02-07 15:50:00 Test Item Value Reference Range Interpretation Comments Chloride Lvl (test code = Chloride Lvl) 109 95-109 [facility]2017-02-07 15:50:00 Test Item Value Reference Range Interpretation Comments Glucose Lvl (test code = Glucose Lvl) 101 70-99 [facility]2017-02-07 15:50:00 Test Item Value Reference Range Interpretation Comments Potassium Lvl (test code = Potassium 4.0 3.5-5.1 Lvl) [facility]2017-02-07 15:50:00 Test Item Value Reference Range Interpretation Comments Sodium Lvl (test code = Sodium Lvl) 141 135-145 [facility]2017-02-07 15:50:00 Test Item Value Reference Range Interpretation Comments AGAP (test code = AGAP) 13.0 10.0-20.0 [facility]2017-02-07 15:50:00 Test Item Value Reference Range Interpretation Comments Calcium Lvl (test code = Calcium Lvl) 7.7 8.5-10.5 [facility]2017-02-07 15:50:00 Test Item Value Reference Range Interpretation Comments Creatinine Lvl (test code = Creatinine 2.49 0.50-1.40 Lvl) [facility] HospitalAagerjxHQBFCFGBZF5480-73-45 15:50:00 Test Item Value Reference Range Interpretation Comments PT (test code = PT) 14.8 s 12.0-14.7 [facility] HospitalYvehvveFVMJKUYDXY9763-43-97 15:50:00 Test Item Value Reference Range Interpretation Comments PTT (test code = PTT) 40.8 s 22.9-35.8 [facility] HospitalTkrpbaaUQSBNSKTPF1674-12-26 15:50:00 Test Item Value Reference Range Interpretation Comments INR (test code = INR) 1.14 0.85-1.17 [facility]PtddbzoMMLAHILNGH1488-09-22 15:50:00 Test Item Value Reference Range Interpretation Comments C3 Complement (test code = C3 94 88-201 Complement) [facility] HospitalLspslppEFSUWRFKEU3471-34-98 10:35:00 Test Item Value Reference Range Interpretation Comments Lymphocytes # (test code = Lymphocytes 1.7 1.0-5.5 #) [facility] HospitalIvhjhmdPXBZRHRDPC8841-50-99 10:35:00 Test Item Value Reference Range Interpretation Comments Segs-Bands # (test code = Segs-Bands #) 2.7 1.5-8.1 [facility] HospitalVzyzqfiGPMSDAHFZY2383-33-32 10:35:00 Test Item Value Reference Range Interpretation Comments Eosinophils # (test code 0.1 See_Comment [A utomated message] The = Eosinophils #) system whic h generated this result tra nsmitted reference range : <=0.5. The reference r leo was not used to int erpret this result as normal/abnormal . [facility] HospitalIslljloOHPHLGXBFG5905-25-76 10:35:00 Test Item Value Reference Range Interpretation Comments Monocytes # (test code 0.7 See_Comment [Aut omated message] The = Monocytes #) system which generated this result tra nsmitted reference range : <=0.8. The reference r leo was not used to int erpret this result as normal/abnormal . [facility] HospitalDyleohvQOBRUGNRLX3430-60-29 10:35:00 Test Item Value Reference Range Interpretation Comments Segs (test code = Segs) 51.3 45.0-75.0 [facility] HospitalJglemrxTIBHSEPPUT3164-24-77 10:35:00 Test Item Value Reference Range Interpretation Comments Lymphocytes (test code = Lymphocytes) 31.6 20.0-40.0 [facility] HospitalCkwvytwJJAAJQIXKH9013-20-24 10:35:00 Test Item Value Reference Range Interpretation Comments Monocytes (test code = Monocytes) 14.1 2.0-12.0 [facility] HospitalAkevkwgBMKVLEWHUL1301-83-53 10:35:00 Test Item Value Reference Range Interpretation Comments Eosinophils (test code = 2.6 See_Comment [A utomated message] The Eosinophils) system which ge nerated this result tra nsmitted reference range : <=4.0. The reference r leo was not used to int erpret this result as normal/abnormal . [facility] HospitalIcvmymvJVZTPWAGSD5467-60-15 10:35:00 Test Item Value Reference Range Interpretation Comments Basophils (test code = 0.4 See_Comment [Aut omated message] The Basophils) system which ge nerated this result tra nsmitted reference range : <=1.0. The reference r leo was not used to int erpret this result as normal/abnormal . [facility] HospitalGyxzoozEXACGGAVZY7215-10-45 10:35:00 Test Item Value Reference Range Interpretation Comments PB Smear Path Peripheral blood smear shows (test code = PB hypochromic normocytic Smear Path) anemia with anisopoikilocytsosis, no increase in schistocytes, slight polychromasia, a few estella cells, moderate thrombocytopenia. Impression: (1) no evidence of microangiopathic hemolysis, (2) RBC morphology is suggestive of anemia of chronic disease or iron deficiency anemia, and renal disease. CPT: 97642 [facility] HospitalJjeacsaARGOQSXXPF9905-12-30 10:35:00 Test Item Value Reference Range Interpretation Comments Hct (test code = Hct) 29.3 36.0-48.0 [facility] HospitalEtckvzmCBVCNUFRWJ5641-88-43 10:35:00 Test Item Value Reference Range Interpretation Comments Hgb (test code = Hgb) 9.2 12.0-16.0 [facility] HospitalZeixrxhVWFCDKPFGT0932-45-51 10:35:00 Test Item Value Reference Range Interpretation Comments RBC (test code = RBC) 3.54 4.20-5.40 [facility] QotzoicJEQVSHIKBP1725-19-09 10:35:00 Test Item Value Reference Range Interpretation Comments WBC (test code = WBC) 5.3 3.7-10.4 [facility] XpmhvdcGIMQFDPJZR1705-50-34 10:35:00 Test Item Value Reference Range Interpretation Comments Platelet (test code = Platelet) 87 133-450 [facility]ElyvgdaELUQWLMUWY1440-06-87 10:35:00 Test Item Value Reference Range Interpretation Comments MCHC (test code = MCHC) 31.4 32.0-36.0 [facility] BvdaekfRRHDIDHPUA8658-98-81 10:35:00 Test Item Value Reference Range Interpretation Comments RDW (test code = RDW) 17.9 11.5-14.5 [facility] DallasDejyfftCJYSHMEKYB8616-57-72 10:35:00 Test Item Value Reference Range Interpretation Comments MPV (test code = MPV) 10.9 7.4-10.4 [facility] DallasRmjtttoWHWMOAVTWD6161-74-58 10:35:00 Test Item Value Reference Range Interpretation Comments MCH (test code = MCH) 26.0 pg 27.0-31.0 [facility] ZxwncejRYDFJUJRAI9756-37-98 10:35:00 Test Item Value Reference Range Interpretation Comments MCV (test code = MCV) 82.8 80.0-98.0 [facility] DallasLoybtnrUFAGTFFZBP5602-43-32 10:35:00 Test Item Value Reference Range Interpretation Comments HIV. (test code = Negative *NA*(07/28/16 HIV.) 4:35 AM) [facility] DallasannCARDIAC KQRLQMM7368-11-96 10:22:00 Test Item Value Reference Range Interpretation Comments Total CK (test code = Total CK) 190 12-191 [facility] MicroGREEN PolymersCHEM FKABR0565-93-80 10:22:00 Test Item Value Reference Range Interpretation Comments Calcium Lvl (test code = Calcium Lvl) 7.8 8.5-10.5 [facility] GeotenderannCHEM VWXOZ9567-52-21 10:22:00 Test Item Value Reference Range Interpretation Comments CO2 (test code = CO2) 21 24-32 [facility] DallasannCHEM KKBLX1320-88-62 10:22:00 Test Item Value Reference Range Interpretation Comments Sodium Lvl (test code = Sodium Lvl) 140 135-145 [facility]2017-02-06 10:22:00 Test Item Value Reference Range Interpretation Comments Potassium Lvl (test code = Potassium 3.8 3.5-5.1 Lvl) [facility]2017-02-06 10:22:00 Test Item Value Reference Range Interpretation Comments Chloride Lvl (test code = Chloride Lvl) 106 95-109 [facility]2017-02-06 10:22:00 Test Item Value Reference Range Interpretation Comments Bili Total (test code = Bili Total) 0.4 0.2-1.3 [facility]2017-02-06 10:22:00 Test Item Value Reference Range Interpretation Comments Alk Phos (test code = Alk Phos) 74 39-136 [facility]2017-02-06 10:22:00 Test Item Value Reference Range Interpretation Comments eGFR (test code = eGFR) 19 [facility]2017-02-06 10:22:00 Test Item Value Reference Range Interpretation Comments Total Protein (test code = Total 5.2 6.4-8.4 Protein) [facility]2017-02-06 10:22:00 Test Item Value Reference Range Interpretation Comments ALT (test code = ALT) 822 See_Comment [Auto mated message] The system which ge nerated this result transmit rohit reference range : <=65. The reference range was not used to interpr et this result as reji l/abnormal. [facility]2017-02-06 10:22:00 Test Item Value Reference Range Interpretation Comments AST (test code = AST) 205 See_Comment [Auto mated message] The system which ge nerated this result transmit rohit reference range : <=37. The reference range was not used to interpr et this result as reji l/abnormal. [facility]2017-02-06 10:22:00 Test Item Value Reference Range Interpretation Comments Albumin Lvl (test code = Albumin Lvl) 1.8 3.5-5.0 [facility]2017-02-06 10:22:00 Test Item Value Reference Range Interpretation Comments BUN (test code = BUN) 54 7-22 [facility]2017-02-06 10:22:00 Test Item Value Reference Range Interpretation Comments Glucose Lvl (test code = Glucose Lvl) 143 70-99 [place] 666877-02-06 10:22:00 Test Item Value Reference Range Interpretation Comments Creatinine Lvl (test code = Creatinine 3.11 0.50-1.40 Lvl) [facility]2017-02-06 10:22:00 Test Item Value Reference Range Interpretation Comments B/C Ratio (test code = B/C Ratio) 17 6-25 [facility]2017-02-06 10:22:00 Test Item Value Reference Range Interpretation Comments AGAP (test code = AGAP) 16.8 10.0-20.0 [facility]2017-02-06 10:22:00 Test Item Value Reference Range Interpretation Comments Globulin (test code = Globulin) 3.4 2.7-4.2 [facility]2017-02-06 10:22:00 Test Item Value Reference Range Interpretation Comments A/G Ratio (test code = A/G Ratio) 0.5 0.7-1.6 [facility]2017-02-06 10:22:00 Test Item Value Reference Range Interpretation Comments Magnesium Lvl (test code = Magnesium 2.0 1.8-2.4 Lvl) [facility]2017-02-06 10:22:00 Test Item Value Reference Range Interpretation Comments Phosphorus (test code = Phosphorus) 3.7 2.5-4.5 [facility] HospitalGodbcpmKCZCVIBIMN2784-98-91 10:22:00 Test Item Value Reference Range Interpretation Comments RDW (test code = RDW) 17.7 11.5-14.5 [facility] HospitalWojujrdUOWFLOJWPD1284-04-59 10:22:00 Test Item Value Reference Range Interpretation Comments MCHC (test code = MCHC) 32.9 32.0-36.0 [facility] HospitalIurbhenDUBZMWEISM5430-77-30 10:22:00 Test Item Value Reference Range Interpretation Comments Hct (test code = Hct) 25.4 36.0-48.0 [facility] HospitalUymzptuCDJFMAEICL4522-72-62 10:22:00 Test Item Value Reference Range Interpretation Comments MCH (test code = MCH) 26.4 pg 27.0-31.0 [facility] HospitalRpdwucnRZDORDSSAW9868-35-72 10:22:00 Test Item Value Reference Range Interpretation Comments MCV (test code = MCV) 80.3 80.0-98.0 [place] 385617-02-06 10:22:00 Test Item Value Reference Range Interpretation Comments MPV (test code = MPV) 11.4 7.4-10.4 [facility] HospitalSjiwcyuHSIZIMHXIO9294-21-46 10:22:00 Test Item Value Reference Range Interpretation Comments Platelet (test code = Platelet) 74 133-450 [facility] HospitalUnltfzuYVILZMVMLI9606-53-76 10:22:00 Test Item Value Reference Range Interpretation Comments RBC (test code = RBC) 3.16 4.20-5.40 [facility] HospitalFmdruvaMVQYKDSMOA3325-18-67 10:22:00 Test Item Value Reference Range Interpretation Comments WBC (test code = WBC) 5.3 3.7-10.4 [facility] HospitalKizfiymIFMZBXKHOP7478-73-08 10:22:00 Test Item Value Reference Range Interpretation Comments Hgb (test code = Hgb) 8.4 12.0-16.0 [facility] HospitalNiohajrLEONSSEJET6586-26-47 10:22:00 Test Item Value Reference Range Interpretation Comments Monocytes (test code = Monocytes) 14.5 2.0-12.0 [facility] HospitalSeqpamwVQVZWCUVDM6129-63-18 10:22:00 Test Item Value Reference Range Interpretation Comments Lymphocytes (test code = Lymphocytes) 29.8 20.0-40.0 [facility] HospitalWymaucrLMIZGHYWKW6716-54-74 10:22:00 Test Item Value Reference Range Interpretation Comments Eosinophils # (test code 0.1 See_Comment [A utomated message] The = Eosinophils #) system whic h generated this result tra nsmitted reference range : <=0.5. The reference r leo was not used to int erpret this result as normal/abnormal . [facility] HospitalZigpecmNDDJTOTBUG5028-00-22 10:22:00 Test Item Value Reference Range Interpretation Comments Monocytes # (test code 0.8 See_Comment [Aut omated message] The = Monocytes #) system which generated this result tra nsmitted reference range : <=0.8. The reference r leo was not used to int erpret this result as normal/abnormal . [facility] HospitalJtdihgaJVGOINWEIL6335-06-22 10:22:00 Test Item Value Reference Range Interpretation Comments Segs-Bands # (test code = Segs-Bands #) 2.9 1.5-8.1 [facility] HospitalZupsbdtGUIZKUKNFL9538-58-50 10:22:00 Test Item Value Reference Range Interpretation Comments Lymphocytes # (test code = Lymphocytes 1.6 1.0-5.5 #) [facility]andExfjpoiMJAHBZJBNV7034-10-34 10:22:00 Test Item Value Reference Range Interpretation Comments Basophils (test code = 0.4 See_Comment [Aut omated message] The Basophils) system which ge nerated this result tra nsmitted reference range : <=1.0. The reference r leo was not used to int erpret this result as normal/abnormal . [facility] HospitalZnycahsLJSDAPJEDN8550-97-04 10:22:00 Test Item Value Reference Range Interpretation Comments Eosinophils (test code = 1.2 See_Comment [A utomated message] The Eosinophils) system which ge nerated this result tra nsmitted reference range : <=4.0. The reference r leo was not used to int erpret this result as normal/abnormal . [facility]PnmalooFDXAEDZZKG5010-19-11 10:22:00 Test Item Value Reference Range Interpretation Comments Segs (test code = Segs) 54.1 45.0-75.0 [facility]andSPE[facility] GJLUWQPBL9564-52-03 10:22:00 Test Item Value Reference Range Interpretation Comments Hgb A1C (test code = Hgb A1C) 8.9 [facility]andCARDIAC IZBYXNY7600-81-87 17:40:00 Test Item Value Reference Range Interpretation Comments Total CK (test code = Total CK) 344 12-191 [facility] DallasXmjugliHHNNASHMOZ5964-85-66 17:40:00 Test Item Value Reference Range Interpretation Comments IVETTE (test code = IVETTE) Positive *ABN*(07/26/16 11:40 AM) [facility] DallasYsjppemMFOLQCGGGM7978-79-81 17:40:00 Test Item Value Reference Range Interpretation Comments 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 [facility] DallasYflminwSZHBSDKYPX6697-25-95 17:40:00 Test Item Value Reference Range Interpretation Comments SS-B (La) Ab (test code = SS-B (La) Ab) no gt [facility] QijrbjfBDGNMMGAHK8201-11-50 17:40:00 Test Item Value Reference Range Interpretation Comments SS-A (Ro) Ab (test code = SS-A (Ro) Ab) no gt [facility] CtvnhjaYPLSKMEOHP6482-42-17 17:40:00 Test Item Value Reference Range Interpretation Comments DNA Ab (DS) (test Negative (07/26/16 11:40 code = DNA Ab (DS)) AM) [facility] FupiflwPCKLTEZZJJ6724-84-73 17:40:00 Test Item Value Reference Range Interpretation Comments IVETTE Titer (test code = 1:40 *ABN*(07/26/16 IVETTE Titer) 11:40 AM) [facility] [id number] 17:40:00 Test Item Value Reference Range Interpretation Comments U Sodium (test code = U Sodium) 21 [facility] DallasYagbzasZKGEVNFWTO9945-59-16 14:00:00 Test Item Value Reference Range Interpretation Comments INR (test code = INR) 1.11 0.85-1.17 [facility] DallasAjqaqngXKTSTLSZVN2173-25-96 14:00:00 Test Item Value Reference Range Interpretation Comments PT (test code = PT) 14.5 s 12.0-14.7 [facility] DallasHxgmpldJLKOWEDOES5469-01-86 14:00:00 Test Item Value Reference Range Interpretation Comments Hep A IgM (test code Negative *NA*(07/26/16 = Hep A IgM) 8:00 AM) [facility] DallasRilizdoTPQYRBLCBP2766-37-76 14:00:00 Test Item Value Reference Range Interpretation Comments Hep B Core IgM (test Negative *NA*(07/26/16 code = Hep B Core 8:00 AM) IgM) [facility] DallasBtqmcqaNYTZUXLFLF2151-29-47 14:00:00 Test Item Value Reference Range Interpretation Comments Hep C Ab (test code = Negative *NA*(07/26/16 Hep C Ab) 8:00 AM) [facility] DallasGjuwhgjFSADITIIMS9093-32-89 14:00:00 Test Item Value Reference Range Interpretation Comments Hep Bs Ag (test code Negative *NA*(07/26/16 = Hep Bs Ag) 8:00 AM) [facility] [id number] 10:42:00 Test Item Value Reference Range Interpretation Comments B/C Ratio (test code = B/C Ratio) 05 12- [facility]2017-02-05 10:42:00 Test Item Value Reference Range Interpretation Comments ALT (test code = ALT) 1232 See_Comment [Auto mated message] The system which ge nerated this result transmit rohit reference range : <=65. The reference range was not used to interpr et this result as reji l/abnormal. [facility]2017-02-05 10:42:00 Test Item Value Reference Range Interpretation Comments A/G Ratio (test code = A/G Ratio) 0.5 0.7-1.6 [facility]2017-02-05 10:42:00 Test Item Value Reference Range Interpretation Comments Bili Total (test code = Bili Total) 0.3 0.2-1.3 [facility]2017-02-05 10:42:00 Test Item Value Reference Range Interpretation Comments Alk Phos (test code = Alk Phos) 79 39-136 [facility]2017-02-05 10:42:00 Test Item Value Reference Range Interpretation Comments AST (test code = AST) 586 See_Comment [Auto mated message] The system which ge nerated this result transmit rohit reference range : <=37. The reference range was not used to interpr et this result as reji l/abnormal. [facility]2017-02-05 10:42:00 Test Item Value Reference Range Interpretation Comments Total Protein (test code = Total 5.5 6.4-8.4 Protein) [facility]2017-02-05 10:42:00 Test Item Value Reference Range Interpretation Comments Globulin (test code = Globulin) 3.7 2.7-4.2 [facility]2017-02-05 10:42:00 Test Item Value Reference Range Interpretation Comments Albumin Lvl (test code = Albumin Lvl) 1.8 3.5-5.0 [facility]2017-02-05 10:42:00 Test Item Value Reference Range Interpretation Comments Magnesium Lvl (test code = Magnesium 2.1 1.8-2.4 Lvl) [facility]eesacfPAMRCIGDES0219-83-08 10:42:00 Test Item Value Reference Range Interpretation Comments Acanthocyte (test code = Acanthocyte) Slight [facility] HospitalFwelzdsWNUYQYRVZE1895-42-17 10:42:00 Test Item Value Reference Range Interpretation Comments Rouleaux (test code = Present *ABN*(07/26/16 Rouleaux) 4:42 AM) [facility]BhxupecQEPDMWOPZY0844-41-38 10:42:00 Test Item Value Reference Range Interpretation Comments Anisocyte (test code = 1+ *ABN*(07/26/16 4:42 Anisocyte) AM) [facility] HospitalWjggahiMZSVGZXECR7194-64-85 10:42:00 Test Item Value Reference Range Interpretation Comments Basophils # (test code 0.1 See_Comment [Aut omated message] The = Basophils #) system which generated this result tra nsmitted reference range : <=0.2. The reference r leo was not used to int erpret this result as normal/abnormal . [facility] SurgeryNgxrrakHIMROVHNTS7349-06-83 10:42:00 Test Item Value Reference Range Interpretation Comments Large Plt (test code Moderate *ABN*(07/26/16 = Large Plt) 4:42 AM) [facility]qkoriwFQRXFXIQEI5920-67-35 10:42:00 Test Item Value Reference Range Interpretation Comments C4 Complement (test code = C4 42 16-47 Complement) [facility] AND [id number] 16:34:00 Test Item Value Reference Range Interpretation Comments UA Sq Epi (test code = UA Sq Epi) None Seen [facility] AND [id number] 16:34:00 Test Item Value Reference Range Interpretation Comments UA Waxy Cast (test code = UA Waxy Cast) 1 [facility] AND [id number] 16:34:00 Test Item Value Reference Range Interpretation Comments UA Hyal Cast (test 4 See_Comment [Automat ed message] The code = UA Hyal Cast) system which generated this result transmit rohit reference range : <=2. The reference range was not used to interpr et this result as reji l/abnormal. [facility] AND [id number] 16:34:00 Test Item Value Reference Range Interpretation Comments UA Bacteria (test code = UA Occasional /HPF Bacteria) [facility] AND [id number] 16:34:00 Test Item Value Reference Range Interpretation Comments UA Mucus (test code = UA Mucus) Few /LPF [facility] AND [id number] 16:34:00 Test Item Value Reference Range Interpretation Comments UA Amorph Destiny (test code = Occasional /HPF UA Amorph Destiny) [facility] AND [id number] 16:34:00 Test Item Value Reference Range Interpretation Comments UA Leuk Est (test Negative (07/25/16 10:34 code = UA Leuk Est) AM) [facility] AND [id number] 16:34:00 Test Item Value Reference Range Interpretation Comments UA Nitrite (test code Negative (07/25/16 10:34 = UA Nitrite) AM) [facility] AND [id number] 16:34:00 Test Item Value Reference Range Interpretation Comments UA RBC (test code = 2 See_Comment [Automa rohit message] The UA RBC) system which ge nerated this result transmit rohit reference range : <=2. The reference range was not used to interpr et this result as reji l/abnormal. [facility] AND [id number] 16:34:00 Test Item Value Reference Range Interpretation Comments UA WBC (test code = 6 See_Comment [Automa rohit message] The UA WBC) system which ge nerated this result transmit rohit reference range : <=5. The reference range was not used to interpr et this result as reji l/abnormal. [facility] AND [id number] 16:34:00 Test Item Value Reference Range Interpretation Comments UA Urobilinogen (test code = UA 2.0 0.1-1.0 Urobilinogen) [facility] AND [id number] 16:34:00 Test Item Value Reference Range Interpretation Comments UA Ketones (test code = UA Negative mg/dL Ketones) [facility] AND [id number] 16:34:00 Test Item Value Reference Range Interpretation Comments UA Glucose (test code = UA Glucose) 70 mg/dL [facility] AND [id number] 16:34:00 Test Item Value Reference Range Interpretation Comments UA Blood (test code = Negative (07/25/16 10:34 UA Blood) AM) [facility] AND [id number] 16:34:00 Test Item Value Reference Range Interpretation Comments UA Bili (test code = Negative *NA*(07/25/16 UA Bili) 10:34 AM) [facility] AND [id number] 16:34:00 Test Item Value Reference Range Interpretation Comments UA Protein (test code = UA >=300 mg/dL Protein) [facility] [id number] 16:34:00 Test Item Value Reference Range Interpretation Comments UA Spec Grav (test code = UA Spec Grav) 1.012 [facility] [id number] 16:34:00 Test Item Value Reference Range Interpretation Comments UA pH (test code = UA pH) 5.5 5.0-8.0 [facility] [id number] 16:34:00 Test Item Value Reference Range Interpretation Comments UA Turbidity (test code Slight *ABN*(07/25/16 = UA Turbidity) 10:34 AM) [facility] AND [id number] 16:34:00 Test Item Value Reference Range Interpretation Comments UA Color (test code = Dark Yellow *NA*(07/25/16 UA Color) 10:34 AM) [facility] [id number] 16:34:00 Test Item Value Reference Range Interpretation Comments UA Gran Cast (test code = UA Gran Cast) 9 [facility] [id number] 16:34:00 Test Item Value Reference Range Interpretation Comments U Sodium (test code = U Sodium) 30 [facility] [id number] 16:34:00 Test Item Value Reference Range Interpretation Comments U Prot/Creat (test code = U Prot/Creat) 3.1 [facility] [id number] 16:34:00 Test Item Value Reference Range Interpretation Comments U Protein (test code = U Protein) 420.9 [facility] [id number] 16:34:00 Test Item Value Reference Range Interpretation Comments U Creatinine (test code = U 136.00 Creatinine) [facility]andCHE[facility] [id number] 08:55:00 Test Item Value Reference Range Interpretation Comments Magnesium Lvl (test code = Magnesium 2.0 1.8-2.4 Lvl) [facility]annCHEM [id number] 08:55:00 Test Item Value Reference Range Interpretation Comments Phosphorus (test code = Phosphorus) 5.2 2.5-4.5 [facility]annCARDIAC [id number] 17:29:00 Test Item Value Reference Range Interpretation Comments Troponin-I (test code 0.28 See_Comment [Auto mated message] The = Troponin-I) system which g enerated this result transmit rohit reference range : <=0.40. The reference r leo was not used to interpr et this result as reji l/abnormal. [facility]2017-[facility] 17:29:00 Test Item Value Reference Range Interpretation Comments Total CK (test code = Total CK) 2616 12-191 [facility]andProgressionNALDMUZ3840-11-73 17:29:00 Test Item Value Reference Range Interpretation Comments Troponin-T (test code 0.144 See_Comment [Auto mated message] The = Troponin-T) system which g enerated this result transmit rohit reference range : <=0.100. The reference r leo was not used to interpr et this result as reji l/abnormal. [facility]andProgressionFOIBHEX7251-57-17 17:29:00 Test Item Value Reference Range Interpretation Comments CK MB Index (test 0.2 See_Comment [Automate d message] The code = CK MB Index) system w [facility] generated this result transmit rohit reference range : <=2.5. The reference range was not used to interpr et this result as reij l/abnormal. [facility]2017-[facility]-03 17:29:00 Test Item Value Reference Range Interpretation Comments CK MB (test code = CK MB) 6.3 0.5-3.6 [id number] 11:20:00 Test Item Value Reference Range Interpretation Comments Troponin-I (test code 0.38 See_Comment [Auto mated message] The = Troponin-I) system which g enerated this result transmit rohit reference range : <=0.40. The reference r leo was not used to interpr et this result as reji l/abnormal. [facility]2017-02-03 11:20:00 Test Item Value Reference Range Interpretation Comments Troponin-T (test code 0.173 See_Comment [Auto mated message] The = Troponin-T) system which g enerated this result transmit rohit reference range : <=0.100. The reference r leo was not used to interpr et this result as reji l/abnormal. [facility]2017-02-03 11:20:00 Test Item Value Reference Range Interpretation Comments CK MB Index (test 0.2 See_Comment [Automate d message] The code = CK MB Index) system w [facility] generated this result transmit rohit reference range : <=2.5. The reference range was not used to interpr et this result as reji l/abnormal. [facility] [id number] 11:20:00 Test Item Value Reference Range Interpretation Comments CK MB (test code = CK MB) 5.6 0.5-3.6 [facility] [id number] 11:20:00 Test Item Value Reference Range Interpretation Comments Phosphorus (test code = Phosphorus) 5.5 2.5-4.5 [facility] [id number] 06:18:00 Test Item Value Reference Range Interpretation Comments BNP (test code = BNP) 701 [facility] [id number] 04:59:27 Test Item Value Reference Range Interpretation Comments Troponin-I (test code 0.57 See_Comment [Auto mated message] The = Troponin-I) system which g enerated this result transmit rohit reference range : <=0.40. The reference r leo was not used to interpr et this result as reji l/abnormal. [facility]2016-12-26 10:22:00 Test Item Value Reference Range Interpretation Comments BNP (test code = BNP) 526 [facility]2016-12-26 10:22:00 Test Item Value Reference Range Interpretation Comments Magnesium Lvl (test code = Magnesium 2.1 1.8-2.4 Lvl) [facility]2016-12-26 10:22:00 Test Item Value Reference Range Interpretation Comments Glucose Lvl (test code = Glucose Lvl) 117 70-99 [facility]2016-12-26 10:22:00 Test Item Value Reference Range Interpretation Comments BUN (test code = BUN) 41 7-22 [facility] [id number] 10:22:00 Test Item Value Reference Range Interpretation Comments Creatinine Lvl (test code = Creatinine 2.00 0.50-1.40 Lvl) [facility] [id number] 10:22:00 Test Item Value Reference Range Interpretation Comments Calcium Lvl (test code = Calcium Lvl) 9.0 8.5-10.5 [facility]2016-12-26 10:22:00 Test Item Value Reference Range Interpretation Comments Chloride Lvl (test code = Chloride Lvl) 102 95-109 [facility]2016-12-26 10:22:00 Test Item Value Reference Range Interpretation Comments CO2 (test code = CO2) 33 24-32 [facility]2016-12-26 10:22:00 Test Item Value Reference Range Interpretation Comments Sodium Lvl (test code = Sodium Lvl) 144 135-145 [facility]2016-12-26 10:22:00 Test Item Value Reference Range Interpretation Comments Potassium Lvl (test code = Potassium 4.0 3.5-5.1 Lvl) [facility]2016-12-26 10:22:00 Test Item Value Reference Range Interpretation Comments eGFR (test code = eGFR) 32 [facility]2016-12-26 10:22:00 Test Item Value Reference Range Interpretation Comments AGAP (test code = AGAP) 13.0 10.0-20.0 [facility]2016-12-26 10:22:00 Test Item Value Reference Range Interpretation Comments Phosphorus (test code = Phosphorus) 4.6 2.5-4.5 [facility] HospitalWookamfJWOPCSDKGR9921-08-24 10:22:00 Test Item Value Reference Range Interpretation Comments RBC (test code = RBC) 3.68 4.20-5.40 [facility] HospitalIqzzrypDAYVCQVQJU8521-45-14 10:22:00 Test Item Value Reference Range Interpretation Comments Hgb (test code = Hgb) 9.9 12.0-16.0 [facility] HospitalDfyuaqeRDKPKZQQAJ3432-45-17 10:22:00 Test Item Value Reference Range Interpretation Comments MCH (test code = MCH) 26.8 pg 27.0-31.0 [facility] HospitalOmnxnutHBAQHXWMBZ8026-67-73 10:22:00 Test Item Value Reference Range Interpretation Comments MCHC (test code = MCHC) 34.2 32.0-36.0 [facility] HospitalLkiuffxFQDOFJOTUH2700-06-26 10:22:00 Test Item Value Reference Range Interpretation Comments MCV (test code = MCV) 78.3 80.0-98.0 [facility] HospitalTrvyislCQLTFZFMNQ9281-15-80 10:22:00 Test Item Value Reference Range Interpretation Comments Hct (test code = Hct) 28.8 36.0-48.0 [facility] HospitalLicypqpWXEQBDDWAK8337-09-34 10:22:00 Test Item Value Reference Range Interpretation Comments Platelet (test code = Platelet) 191 133-450 [facility] HospitalJoitrsuWKJIOUATCW0472-90-25 10:22:00 Test Item Value Reference Range Interpretation Comments MPV (test code = MPV) 9.5 7.4-10.4 [facility] HospitalAtkfcaiAXOWDFGSRA6708-84-22 10:22:00 Test Item Value Reference Range Interpretation Comments RDW (test code = RDW) 15.3 11.5-14.5 [facility] HospitalRjipgzpPLMCWOJFSK4276-98-05 10:22:00 Test Item Value Reference Range Interpretation Comments WBC (test code = WBC) 5.6 3.7-10.4 [facility] HospitalNqskdqoHPQUPCQQEU7827-14-07 10:22:00 Test Item Value Reference Range Interpretation Comments Eosinophils # (test code 0.5 See_Comment [A utomated message] The = Eosinophils #) system [facility] generated this result tra nsmitted reference range : <=0.5. The reference r leo was not used to int erpret this result as normal/abnormal . [facility] HospitalPbfyohjIAITMMXYEF5838-60-82 10:22:00 Test Item Value Reference Range Interpretation Comments Microcyte (test code = 1+ *ABN*(06/15/16 Microcyte) 4:22 AM) [facility] HospitalDswxqxnDHROUPTBYO4511-43-10 10:22:00 Test Item Value Reference Range Interpretation Comments Basophils # (test code 0.1 See_Comment [Aut omated message] The = Basophils #) system which generated this result tra nsmitted reference range : <=0.2. The reference r leo was not used to int erpret this result as normal/abnormal . [facility] HospitalHfmipojBWNSMELHQL6179-53-22 10:22:00 Test Item Value Reference Range Interpretation Comments Lymphocytes (test code = Lymphocytes) 33.5 20.0-40.0 [facility] HospitalQkoqwpuKQLTNCEQMH2280-51-56 10:22:00 Test Item Value Reference Range Interpretation Comments Segs (test code = Segs) 47.6 45.0-75.0 [facility] HospitalAoanmogLOCZSWWZYN1806-84-13 10:22:00 Test Item Value Reference Range Interpretation Comments Monocytes (test code = Monocytes) 8.4 2.0-12.0 [facility] HospitalKgejgbtFEWZEQKCOD2921-59-43 10:22:00 Test Item Value Reference Range Interpretation Comments Eosinophils (test code = 9.4 See_Comment [A utomated message] The Eosinophils) system which ge nerated this result tra nsmitted reference range : <=4.0. The reference r leo was not used to int erpret this result as normal/abnormal . [facility] HospitalRcphobuASJAWJDMXH6176-12-91 10:22:00 Test Item Value Reference Range Interpretation Comments Segs-Bands # (test code = Segs-Bands #) 2.6 1.5-8.1 [facility] HospitalEsyegnjPGPIOEJYKE3751-11-26 10:22:00 Test Item Value Reference Range Interpretation Comments Lymphocytes # (test code = Lymphocytes 1.9 1.0-5.5 #) [facility] HospitalJttejjkCMSAKNWVXT0610-97-86 10:22:00 Test Item Value Reference Range Interpretation Comments Basophils (test code = 1.1 See_Comment [Aut omated message] The Basophils) system which ge nerated this result tra nsmitted reference range : <=1.0. The reference r leo was not used to int erpret this result as normal/abnormal . [facility] HospitalGmsksmlXWCRMKETVP4567-97-12 10:22:00 Test Item Value Reference Range Interpretation Comments Monocytes # (test code 0.5 See_Comment [Aut omated message] The = Monocytes #) system which generated this result tra nsmitted reference range : <=0.8. The reference r leo was not used to int erpret this result as normal/abnormal . [facility]2016-12-25 11:03:00 Test Item Value Reference Range Interpretation Comments Phosphorus (test code = Phosphorus) 4.8 2.5-4.5 [facility]2016-12-25 11:03:00 Test Item Value Reference Range Interpretation Comments Magnesium Lvl (test code = Magnesium 2.0 1.8-2.4 Lvl) [facility]2016-12-25 11:03:00 Test Item Value Reference Range Interpretation Comments eGFR (test code = eGFR) 32 [facility]2016-12-25 11:03:00 Test Item Value Reference Range Interpretation Comments Chloride Lvl (test code = Chloride Lvl) 101 95-109 [facility]2016-12-25 11:03:00 Test Item Value Reference Range Interpretation Comments Potassium Lvl (test code = Potassium 4.4 3.5-5.1 Lvl) [facility]2016-12-25 11:03:00 Test Item Value Reference Range Interpretation Comments BUN (test code = BUN) 37 7-22 [facility]2016-12-25 11:03:00 Test Item Value Reference Range Interpretation Comments Glucose Lvl (test code = Glucose Lvl) 119 70-99 [facility]2016-12-25 11:03:00 Test Item Value Reference Range Interpretation Comments Creatinine Lvl (test code = Creatinine 2.00 0.50-1.40 Lvl) [facility]2016-12-25 11:03:00 Test Item Value Reference Range Interpretation Comments Sodium Lvl (test code = Sodium Lvl) 142 135-145 [place] 666876-12-25 11:03:00 Test Item Value Reference Range Interpretation Comments Calcium Lvl (test code = Calcium Lvl) 8.7 8.5-10.5 [place] 666876-12-25 11:03:00 Test Item Value Reference Range Interpretation Comments CO2 (test code = CO2) 32 24-32 [facility]2016-12-25 11:03:00 Test Item Value Reference Range Interpretation Comments AGAP (test code = AGAP) 13.4 10.0-20.0 [facility] HospitalTltszymAKKUXESBYB1228-86-37 11:03:00 Test Item Value Reference Range Interpretation Comments Eosinophils (test code = 10.3 See_Comment [A utomated message] The Eosinophils) system which ge nerated this result tra nsmitted reference range : <=4.0. The reference r leo was not used to int erpret this result as normal/abnormal . [place] 385616-12-25 11:03:00 Test Item Value Reference Range Interpretation Comments Basophils # (test code 0.1 See_Comment [Aut omated message] The = Basophils #) system which generated this result tra nsmitted reference range : <=0.2. The reference r leo was not used to int erpret this result as normal/abnormal . [place] 385616-12-25 11:03:00 Test Item Value Reference Range Interpretation Comments Eosinophils # (test code 0.5 See_Comment [A utomated message] The = Eosinophils #) system whic h generated this result tra nsmitted reference range : <=0.5. The reference r leo was not used to int erpret this result as normal/abnormal . [facility] HospitalBuczhnxBNFJZFNAXB1949-06-87 11:03:00 Test Item Value Reference Range Interpretation Comments Monocytes # (test code 0.5 See_Comment [Aut omated message] The = Monocytes #) system which generated this result tra nsmitted reference range : <=0.8. The reference r leo was not used to int erpret this result as normal/abnormal . [facility] HospitalFltboibDWKGPSBXNI8115-00-51 11:03:00 Test Item Value Reference Range Interpretation Comments Segs-Bands # (test code = Segs-Bands #) 2.1 1.5-8.1 [facility] HospitalKpvadozGLTWWMBSQJ9463-82-65 11:03:00 Test Item Value Reference Range Interpretation Comments Basophils (test code = 1.2 See_Comment [Aut omated message] The Basophils) system which ge nerated this result tra nsmitted reference range : <=1.0. The reference r leo was not used to int erpret this result as normal/abnormal . [facility]LbncszzFKRGDMCWRQ2650-82-69 11:03:00 Test Item Value Reference Range Interpretation Comments Lymphocytes # (test code = Lymphocytes 1.9 1.0-5.5 #) [facility] HospitalBbwwyriUZWOYGIYLU5036-51-30 11:03:00 Test Item Value Reference Range Interpretation Comments Segs (test code = Segs) 42.5 45.0-75.0 [facility] HospitalUkbznibEJIMAEXAPE3143-41-31 11:03:00 Test Item Value Reference Range Interpretation Comments Lymphocytes (test code = Lymphocytes) 37.0 20.0-40.0 [facility] HospitalCrnjnbdBXFIYFWBGG7134-38-70 11:03:00 Test Item Value Reference Range Interpretation Comments Monocytes (test code = Monocytes) 9.0 2.0-12.0 [facility] HospitalIjvxdjaONDORFPTRO2979-68-53 11:03:00 Test Item Value Reference Range Interpretation Comments MPV (test code = MPV) 9.8 7.4-10.4 [facility] HospitalTshdbnpZZBWRZFSEV2366-70-01 11:03:00 Test Item Value Reference Range Interpretation Comments WBC (test code = WBC) 5.0 3.7-10.4 [facility] HospitalLieirbhFNDYGEYFWT0162-55-72 11:03:00 Test Item Value Reference Range Interpretation Comments RBC (test code = RBC) 3.57 4.20-5.40 [facility] HospitalBodmpdsSASSWCVDES3366-58-51 11:03:00 Test Item Value Reference Range Interpretation Comments Hgb (test code = Hgb) 9.4 12.0-16.0 [facility] HospitalAickdnoIUZAQAOPYG9169-95-58 11:03:00 Test Item Value Reference Range Interpretation Comments Hct (test code = Hct) 28.5 36.0-48.0 [facility] HospitalXbmczjoHWERHZZYXE9639-63-15 11:03:00 Test Item Value Reference Range Interpretation Comments Platelet (test code = Platelet) 183 133-450 [facility] HospitalLlprnljIJMWHPBLGD3958-21-04 11:03:00 Test Item Value Reference Range Interpretation Comments MCV (test code = MCV) 79.9 80.0-98.0 [facility] HospitalOqwbfxxYEUFGPMUUT3171-35-52 11:03:00 Test Item Value Reference Range Interpretation Comments MCH (test code = MCH) 26.3 pg 27.0-31.0 [facility] HospitalNtechjoDVMFKYISCS9970-17-84 11:03:00 Test Item Value Reference Range Interpretation Comments MCHC (test code = MCHC) 33.0 32.0-36.0 [facility] HospitalHglvlosGONZGWDOWC1770-35-82 11:03:00 Test Item Value Reference Range Interpretation Comments RDW (test code = RDW) 15.9 11.5-14.5 [facility]2016-12-24 10:26:00 Test Item Value Reference Range Interpretation Comments U Prot/Creat (test code = U Prot/Creat) 6.9 [facility]2016-12-24 10:26:00 Test Item Value Reference Range Interpretation Comments U Creatinine (test code = U Creatinine) 19.30 [facility]2016-12-24 10:26:00 Test Item Value Reference Range Interpretation Comments U Protein (test code = U Protein) 133.1 [facility] HospitalZmtuetiXXBUCWTFEL6947-60-82 09:20:00 Test Item Value Reference Range Interpretation Comments MPV (test code = MPV) 9.7 7.4-10.4 [place] 385616-12-24 09:20:00 Test Item Value Reference Range Interpretation Comments Platelet (test code = Platelet) 184 133-450 [facility] HospitalNilbwkhPWZBSHLFEU9399-13-78 09:20:00 Test Item Value Reference Range Interpretation Comments RDW (test code = RDW) 15.9 11.5-14.5 [facility] HospitalLlrmxmvNCSVSCFQFA1172-48-30 09:20:00 Test Item Value Reference Range Interpretation Comments MCV (test code = MCV) 79.3 80.0-98.0 [facility] HospitalTurkrwwTOHYNCXEGN7334-35-15 09:20:00 Test Item Value Reference Range Interpretation Comments MCHC (test code = MCHC) 33.0 32.0-36.0 [facility] HospitalIuieaepRHEZBMIMAO3378-12-52 09:20:00 Test Item Value Reference Range Interpretation Comments MCH (test code = MCH) 26.2 pg 27.0-31.0 [facility] HospitalVnepcjhGMUIGSLDKU5455-64-52 09:20:00 Test Item Value Reference Range Interpretation Comments Hct (test code = Hct) 29.4 36.0-48.0 [facility] HospitalTegdnxqBLUOBLTEEN8264-81-21 09:20:00 Test Item Value Reference Range Interpretation Comments Hgb (test code = Hgb) 9.7 12.0-16.0 [facility] HospitalQnxmvssIKILKDYDRM0176-94-88 09:20:00 Test Item Value Reference Range Interpretation Comments RBC (test code = RBC) 3.70 4.20-5.40 [facility] HospitalBretgpcNSKOLNTXGI5280-54-67 09:20:00 Test Item Value Reference Range Interpretation Comments WBC (test code = WBC) 5.7 3.7-10.4 [facility] HospitalFratyluYISSFUCRJD4928-56-69 09:20:00 Test Item Value Reference Range Interpretation Comments Basophils # (test code 0.1 See_Comment [Aut omated message] The = Basophils #) system which generated this result tra nsmitted reference range : <=0.2. The reference r leo was not used to int erpret this result as normal/abnormal . [facility] HospitalTaamhsqNYULGEXVBK4066-49-88 09:20:00 Test Item Value Reference Range Interpretation Comments Lymphocytes # (test code = Lymphocytes 2.2 1.0-5.5 #) [facility] HospitalDfqupsmXZMIGAAILZ4272-16-35 09:20:00 Test Item Value Reference Range Interpretation Comments Eosinophils # (test code 0.5 See_Comment [A utomated message] The = Eosinophils #) system whic h generated this result tra nsmitted reference range : <=0.5. The reference r leo was not used to int erpret this result as normal/abnormal . [facility] HospitalMmvdlcdFSYWPVYMUR2067-63-56 09:20:00 Test Item Value Reference Range Interpretation Comments Monocytes # (test code 0.5 See_Comment [Aut omated message] The = Monocytes #) system which generated this result tra nsmitted reference range : <=0.8. The reference r leo was not used to int erpret this result as normal/abnormal . [facility] HospitalBxpgclzXMXXJSJQVX2165-97-82 09:20:00 Test Item Value Reference Range Interpretation Comments Basophils (test code = 1.1 See_Comment [Aut omated message] The Basophils) system which ge nerated this result tra nsmitted reference range : <=1.0. The reference r leo was not used to int erpret this result as normal/abnormal . [facility] HospitalJywjbihVMEFAVTIGG7134-25-18 09:20:00 Test Item Value Reference Range Interpretation Comments Segs-Bands # (test code = Segs-Bands #) 2.3 1.5-8.1 [facility] HospitalBwjeabeGHWAYJBHNA9815-48-94 09:20:00 Test Item Value Reference Range Interpretation Comments Eosinophils (test code = 9.5 See_Comment [A utomated message] The Eosinophils) system which ge nerated this result tra nsmitted reference range : <=4.0. The reference r leo was not used to int erpret this result as normal/abnormal . [facility] HospitalFxfudicHEOQGMQIIP9612-10-23 09:20:00 Test Item Value Reference Range Interpretation Comments Monocytes (test code = Monocytes) 9.0 2.0-12.0 [facility] HospitalAdovtzxWLHXIHGFPD3650-62-15 09:20:00 Test Item Value Reference Range Interpretation Comments Lymphocytes (test code = Lymphocytes) 38.9 20.0-40.0 [facility] HospitalZgpgirmZAAZDJEUQA7641-77-11 09:20:00 Test Item Value Reference Range Interpretation Comments Segs (test code = Segs) 41.5 45.0-75.0 [facility]2016-12-24 06:34:00 Test Item Value Reference Range Interpretation Comments Magnesium Lvl (test code = Magnesium 1.7 1.8-2.4 Lvl) [facility]2016-12-24 06:34:00 Test Item Value Reference Range Interpretation Comments Phosphorus (test code = Phosphorus) 4.2 2.5-4.5 [facility]HddqlgvNRYWNSBCRNQV6309-99-72 06:34:00 Test Item Value Reference Range Interpretation Comments AGAP (test code = AGAP) 14.3 10.0-20.0 [facility] HospitalSpugifiWRDQWSMFBHZO2703-98-36 06:34:00 Test Item Value Reference Range Interpretation Comments eGFR (test code = eGFR) 41 [facility] HospitalVotejzxMETAQZWTIXRE5972-20-31 06:34:00 Test Item Value Reference Range Interpretation Comments Chloride Lvl (test code = Chloride Lvl) 103 95-109 [facility] HospitalXrybtujRAGQWGVKUVGM0093-41-58 06:34:00 Test Item Value Reference Range Interpretation Comments Calcium Lvl (test code = Calcium Lvl) 8.5 8.5-10.5 [facility] HospitalUygudkoULJHLTLJGZMX5090-36-10 06:34:00 Test Item Value Reference Range Interpretation Comments CO2 (test code = CO2) 32 24-32 [facility] HospitalBdhzwzkSCJOACGCPGTE8628-34-29 06:34:00 Test Item Value Reference Range Interpretation Comments Glucose Lvl (test code = Glucose Lvl) 173 70-99 [facility] HospitalMfvchvfOKCOKXYIOKJE9394-51-79 06:34:00 Test Item Value Reference Range Interpretation Comments BUN (test code = BUN) 37 7-22 [facility] HospitalGzqwwplNEMGLGKYQXVG0855-04-44 06:34:00 Test Item Value Reference Range Interpretation Comments Creatinine Lvl (test code = Creatinine 1.63 0.50-1.40 Lvl) [facility] HospitalUmrpaceVKLIPJIIYKHE9081-67-99 06:34:00 Test Item Value Reference Range Interpretation Comments Potassium Lvl (test code = Potassium 4.3 3.5-5.1 Lvl) [facility] HospitalXeeppvlUIDYXBQZNZVQ4658-61-75 06:34:00 Test Item Value Reference Range Interpretation Comments Sodium Lvl (test code = Sodium Lvl) 145 135-145 [facility] [id number] 16:21:00 Test Item Value Reference Range Interpretation Comments Ammonia (test code = Ammonia) 48.0 [facility] WhhjxgrCFRJHLJAED1459-28-86 14:56:00 Test Item Value Reference Range Interpretation Comments IVETTE Interp (test code Pattern appears = IVETTE Interp) Nucleolar. [facility]aNeurbjeVBRRJRUAZB1485-39-86 14:56:00 Test Item Value Reference Range Interpretation Comments IVETTE Titer (test code = 1:40 *ABN*(06/11/16 IVETTE Titer) 8:56 AM) [facility]aPrhnxhaSSHQXGUDYN8560-51-34 14:56:00 Test Item Value Reference Range Interpretation Comments Hep Bs Ag (test code Negative *NA*(06/11/16 = Hep Bs Ag) 8:56 AM) [facility]aMgqtfinSXCDDOEAVG1453-00-52 14:56:00 Test Item Value Reference Range Interpretation Comments Hep C Ab (test code = Negative *NA*(06/11/16 Hep C Ab) 8:56 AM) [facility]aGujhmgbBOOUCEPMQV9275-24-98 14:56:00 Test Item Value Reference Range Interpretation Comments Hep B Core IgM (test Negative *NA*(06/11/16 code = Hep B Core 8:56 AM) IgM) [facility]aAofwljtPNNRNKZEUT4662-82-01 14:56:00 Test Item Value Reference Range Interpretation Comments Hep A IgM (test code Negative *NA*(06/11/16 = Hep A IgM) 8:56 AM) [facility]aKezgcdjPTCKGHSCSG9997-42-85 14:56:00 Test Item Value Reference Range Interpretation Comments HIV Ag/Ab 4th Gen Negative *NA*(06/11/16 (test code = HIV 8:56 AM) Ag/Ab 4th Gen) [facility]aFqcxiuyRFFBCYJOUT4452-19-69 14:56:00 Test Item Value Reference Range Interpretation Comments IVETTE (test code = IVETTE) Positive *ABN*(06/11/16 8:56 AM) [facility]2016-12-22 10:42:00 Test Item Value Reference Range Interpretation Comments Bili Total (test code = Bili Total) 0.1 0.2-1.3 [facility]2016-12-22 10:42:00 Test Item Value Reference Range Interpretation Comments Total Protein (test code = Total 5.2 6.4-8.4 Protein) [facility]2016-12-22 10:42:00 Test Item Value Reference Range Interpretation Comments Albumin Lvl (test code = Albumin Lvl) 1.6 3.5-5.0 [facility] [id number] 10:42:00 Test Item Value Reference Range Interpretation Comments B/C Ratio (test code = B/C Ratio) 20 6-25 [facility] [id number] 10:42:00 Test Item Value Reference Range Interpretation Comments Globulin (test code = Globulin) 3.6 2.7-4.2 [facility] [id number] 10:42:00 Test Item Value Reference Range Interpretation Comments A/G Ratio (test code = A/G Ratio) 0.4 0.7-1.6 [facility] InternationalTUSCAR[facility] [id number] 10:42:00 Test Item Value Reference Range Interpretation Comments Alk Phos (test code = Alk Phos) 74 39-136 [facility] [id number] 10:42:00 Test Item Value Reference Range Interpretation Comments ALT (test code = ALT) 14 See_Comment [Auto mated message] The system which ge nerated this result transmit rohit reference range : <=65. The reference range was not used to interpr et this result as reji l/abnormal. [facility] [id number] 10:42:00 Test Item Value Reference Range Interpretation Comments AST (test code = AST) 13 See_Comment [Auto mated message] The system which ge nerated this result transmit rohit reference range : <=37. The reference range was not used to interpr et this result as reji l/abnormal. [facility] LevellandNbwabcpIOPASVLTZX5230-37-66 10:42:00 Test Item Value Reference Range Interpretation Comments INR (test code = INR) 1.06 0.85-1.17 [facility] DallasTgcjuvzMYLQTELJXU8807-16-56 10:42:00 Test Item Value Reference Range Interpretation Comments PT (test code = PT) 14.0 s 12.0-14.7 [facility]ellandMplbnmgRUSYLAYTLN0252-14-33 10:42:00 Test Item Value Reference Range Interpretation Comments PTT (test code = PTT) 36.4 s 22.9-35.8 [facility]andSPECIAL [id number] 10:42:00 Test Item Value Reference Range Interpretation Comments Hgb A1C (test code = Hgb A1C) 10.5 [facility] DallasannCARDIAC [id number] 02:08:00 Test Item Value Reference Range Interpretation Comments CK MB Index (test 1.8 See_Comment [Automate d message] The code = CK MB Index) system w [facility] generated this result transmit rohit reference range : <=2.5. The reference range was not used to interpr et this result as reji l/abnormal. [facility] [employer]2016-12-22 02:08:00 Test Item Value Reference Range Interpretation Comments CK MB (test code = CK MB) 2.9 0.5-3.6 [facility] DallasConnectFu [id number] 02:08:00 Test Item Value Reference Range Interpretation Comments Troponin-T (test code 0.061 See_Comment [Auto mated message] The = Troponin-T) system which g enerated this result transmit rohit reference range : <=0.100. The reference r leo was not used to interpr et this result as reji l/abnormal. [facility] DallasConnectFu [id number] 02:08:00 Test Item Value Reference Range Interpretation Comments Total CK (test code = Total CK) 159 12-191 [facility]andWhat[facility] GSHWCPY2057-74-73 02:08:00 Test Item Value Reference Range Interpretation Comments Troponin-I (test code no gt See_Comment [Auto mated message] The = Troponin-I) system which g enerated this result transmit rohit reference range : <=0.40. The reference r leo was not used to interpr et this result as reji l/abnormal. [facility] [employer]2016-12-22 02:08:00 Test Item Value Reference Range Interpretation Comments Bili Total (test code = Bili Total) 0.2 0.2-1.3 [facility] [employer]2016-12-22 02:08:00 Test Item Value Reference Range Interpretation Comments Bili Direct (test code 0.1 See_Comment [Aut omated message] The = Bili Direct) system which generated this result tra nsmitted reference range : <=0.3. The reference r leo was not used to int erpret this result as reji l/abnormal. [facility] [employer]2016-12-22 02:08:00 Test Item Value Reference Range Interpretation Comments Bili Indirect (test 0.1 See_Comment [Automa rohit message] The code = Bili Indirect) system which generated this result tra nsmitted reference range : <=1.0. The reference r leo was not used to int erpret this result as normal/abnormal . [facility] [employer] [id number] 02:08:00 Test Item Value Reference Range Interpretation Comments Total Protein (test code = Total 5.7 6.4-8.4 Protein) [facility] DallasappsFre[facility] [id number] 02:08:00 Test Item Value Reference Range Interpretation Comments A/G Ratio (test code = A/G Ratio) 0.5 0.7-1.6 [facility] [employer]2016-12-22 02:08:00 Test Item Value Reference Range Interpretation Comments Albumin Lvl (test code = Albumin Lvl) 1.8 3.5-5.0 [facility] [employer] [id number] 02:08:00 Test Item Value Reference Range Interpretation Comments Globulin (test code = Globulin) 3.9 2.7-4.2 [facility] [employer]2016-12-22 02:08:00 Test Item Value Reference Range Interpretation Comments Alk Phos (test code = Alk Phos) 99 39-136 [facility] [employer] [id number] 02:08:00 Test Item Value Reference Range Interpretation Comments AST (test code = AST) 21 See_Comment [Auto mated message] The system which ge nerated this result transmit rohit reference range : <=37. The reference range was not used to interpr et this result as reji l/abnormal. [facility] [employer]2016-12-22 02:08:00 Test Item Value Reference Range Interpretation Comments ALT (test code = ALT) 17 See_Comment [Auto mated message] The system which ge nerated this result transmit rohit reference range : <=65. The reference range was not used to interpr et this result as reji l/abnormal. [employer] [id number] 02:08:00 Test Item Value Reference Range Interpretation Comments UDS Note (test code = See Note *NA*(06/10/16 UDS Note) 8:08 PM) [facility] [employer] [id number] 02:08:00 Test Item Value Reference Range Interpretation Comments U Propoxyph Scr (test Negative *NA*(06/10/16 code = U Propoxyph Scr) 8:08 PM) [facility] [id number] 02:08:00 Test Item Value Reference Range Interpretation Comments U Opiate Scr (test Negative *NA*(06/10/16 code = U Opiate Scr) 8:08 PM) [facility] [id number] 02:08:00 Test Item Value Reference Range Interpretation Comments U Methadone Scr (test Negative *NA*(06/10/16 code = U Methadone Scr) 8:08 PM) [facility] [id number] 02:08:00 Test Item Value Reference Range Interpretation Comments U Phencyc Scr (test Negative *NA*(06/10/16 code = U Phencyc Scr) 8:08 PM) [facility]annDR[facility] [id number] 02:08:00 Test Item Value Reference Range Interpretation Comments U Cannab Scr (test Negative *NA*(06/10/16 code = U Cannab Scr) 8:08 PM) [facility]annDR[facility] [id number] 02:08:00 Test Item Value Reference Range Interpretation Comments U Amph Scr (test code Negative *NA*(06/10/16 = U Amph Scr) 8:08 PM) [facility]annDR[facility] [id number] 02:08:00 Test Item Value Reference Range Interpretation Comments U Kelly Scr (test code Negative *NA*(06/10/16 = U Kelly Scr) 8:08 PM) [facility]DR[facility] [id number] 02:08:00 Test Item Value Reference Range Interpretation Comments U Benzodia Scr (test Negative *NA*(06/10/16 code = U Benzodia Scr) 8:08 PM) [facility] DallasannDR[facility] [id number] 02:08:00 Test Item Value Reference Range Interpretation Comments U Cocaine Scr (test Negative *NA*(06/10/16 code = U Cocaine Scr) 8:08 PM) [facility] [id number] 02:08:00 Test Item Value Reference Range Interpretation Comments LDL (Calculated) (test code = LDL 75 (Calculated)) [facility] [id number] 02:08:00 Test Item Value Reference Range Interpretation Comments VLDL (test code = VLDL) 27 [facility] [id number] 02:08:00 Test Item Value Reference Range Interpretation Comments Chol (test code = Chol) 133 [facility]ellandDojqgupETUYRU1704-53-14 02:08:00 Test Item Value Reference Range Interpretation Comments Trig (test code = Trig) 133 [facility] Lev[id number] 02:08:00 Test Item Value Reference Range Interpretation Comments CHD Risk (test code = CHD Risk) 4.29 3.90-5.80 [facility] BawcctuDGFDXV8403-88-60 02:08:00 Test Item Value Reference Range Interpretation Comments HDL (test code = HDL) 31 [facility] AND [id number] 02:08:00 Test Item Value Reference Range Interpretation Comments UA Urobilinogen (test code = UA <=1.0 mg/dL 0.1-1.0 Urobilinogen) [facility] AND [id number] 02:08:00 Test Item Value Reference Range Interpretation Comments UA Ketones (test code = UA Negative mg/dL Ketones) [facility] AND [id number] 02:08:00 Test Item Value Reference Range Interpretation Comments UA Glucose (test code = UA Glucose) 300 mg/dL [facility] AND [id number] 02:08:00 Test Item Value Reference Range Interpretation Comments UA Protein (test code = UA >=300 mg/dL Protein) [facility] AND [id number] 02:08:00 Test Item Value Reference Range Interpretation Comments UA pH (test code = UA pH) 6.0 5.0-8.0 [facility] AND [id number] 02:08:00 Test Item Value Reference Range Interpretation Comments UA Nitrite (test code Negative (06/10/16 8:08 = UA Nitrite) PM) [facility] AND [id number] 02:08:00 Test Item Value Reference Range Interpretation Comments UA Blood (test code = Trace *ABN*(06/10/16 UA Blood) 8:08 PM) [facility] AND [id number] 02:08:00 Test Item Value Reference Range Interpretation Comments UA Bili (test code = Negative *NA*(06/10/16 UA Bili) 8:08 PM) [facility] AND [id number] 02:08:00 Test Item Value Reference Range Interpretation Comments UA Mucus (test code = UA Mucus) Few /LPF [facility] AND [id number] 02:08:00 Test Item Value Reference Range Interpretation Comments UA RBC (test code = 4 See_Comment [Automa rohit message] The UA RBC) system which ge nerated this result transmit rohit reference range : <=2. The reference range was not used to interpr et this result as reji l/abnormal. [facility] [id number] 02:08:00 Test Item Value Reference Range Interpretation Comments UA Sq Epi (test code = UA Sq Epi) Few /LPF [facility] AND [id number] 02:08:00 Test Item Value Reference Range Interpretation Comments UA WBC (test code = 5 See_Comment [Automa rohit message] The UA WBC) system which ge nerated this result transmit rohit reference range : <=5. The reference range was not used to interpr et this result as reji l/abnormal. [facility] [id number] 02:08:00 Test Item Value Reference Range Interpretation Comments UA Leuk Est (test code Small *ABN*(06/10/16 = UA Leuk Est) 8:08 PM) [facility] AND [id number] 02:08:00 Test Item Value Reference Range Interpretation Comments UA Hyal Cast (test 1 See_Comment [Automat ed message] The code = UA Hyal Cast) system which generated this result transmit rohit reference range : <=2. The reference range was not used to interpr et this result as reji l/abnormal. [facility] [id number] 02:08:00 Test Item Value Reference Range Interpretation Comments UA Spec Grav (test code = UA Spec Grav) 1.009 [facility] AND [id number] 02:08:00 Test Item Value Reference Range Interpretation Comments UA Color (test code = Yellow *NA*(06/10/16 UA Color) 8:08 PM) [facility] AND [id number] 02:08:00 Test Item Value Reference Range Interpretation Comments UA Turbidity (test code = Clear (06/10/16 8:08 UA Turbidity) PM) [facility]2016-12-22 02:08:00 Test Item Value Reference Range Interpretation Comments U Preg (test code = U Negative (06/10/16 8:08 Preg) PM) [facility]2016-12-22 02:08:00 Test Item Value Reference Range Interpretation Comments U Protein (test code = U Protein) 375.4 [facility] [id number] 02:08:00 Test Item Value Reference Range Interpretation Comments U Prot/Creat (test code = U Prot/Creat) 5.4 [facility] [id number] 02:08:00 Test Item Value Reference Range Interpretation Comments U Creatinine (test code = U Creatinine) 69.80 [facility] [id number] 16:53:00 Test Item Value Reference Range Interpretation Comments BNP (test code = BNP) 1135 [facility] EJVMDXO8210-78-23 16:53:00 Test Item Value Reference Range Interpretation Comments Troponin-I (test code no gt See_Comment [Auto mated message] The = Troponin-I) system which g enerated this result transmit rohit reference range : <=0.40. The reference r leo was not used to interpr et this result as reji l/abnormal. [facility] [id number] 13:02:00 Test Item Value Reference Range Interpretation Comments Lactic Acid WB (test code = Lactic Acid 0.9 0.5-2.2 WB) [facility]andBvyfracCCGBFCGKVO9286-57-34 12:29:44 Test Item Value Reference Range Interpretation Comments Valproic Acid Lvl (test code = Valproic 10 50-100 Acid Lvl) [facility]andIoobxapXQUVDHAAIGBEN5030-91-57 11:21:27 Test Item Value Reference Range Interpretation Comments hCG Tot (test code = hCG Tot) 1 [facility] [id number] 11:21:00 Test Item Value Reference Range Interpretation Comments Albumin Lvl (test code = Albumin Lvl) 3.2 3.5-5.0 [facility] [id number] 11:21:00 Test Item Value Reference Range Interpretation Comments Total Protein (test code = Total 6.6 6.4-8.4 Protein) [facility] [id number] 11:21:00 Test Item Value Reference Range Interpretation Comments Bili Total (test code = Bili Total) 0.6 0.2-1.3 [facility] [id number] 11:21:00 Test Item Value Reference Range Interpretation Comments Alk Phos (test code = Alk Phos) 59 39-136 [facility]2015-01-06 11:21:00 Test Item Value Reference Range Interpretation Comments AST (test code = AST) 11 See_Comment [Auto mated message] The system which ge nerated this result transmit rohit reference range : <=37. The reference range was not used to interpr et this result as reji l/abnormal. [facility]2015-01-06 11:21:00 Test Item Value Reference Range Interpretation Comments ALT (test code = ALT) 17 See_Comment [Auto mated message] The system which ge nerated this result transmit rohit reference range : <=65. The reference range was not used to interpr et this result as reji l/abnormal. [facility]2015-01-06 11:21:00 Test Item Value Reference Range Interpretation Comments eGFR (test code = eGFR) 99 [facility]2015-01-06 11:21:00 Test Item Value Reference Range Interpretation Comments Glucose Lvl (test code = Glucose Lvl) 314 70-99 [facility]2015-01-06 11:21:00 Test Item Value Reference Range Interpretation Comments Potassium Lvl (test code = Potassium 3.4 3.5-5.1 Lvl) [facility]2015-01-06 11:21:00 Test Item Value Reference Range Interpretation Comments BUN (test code = BUN) 11 7-22 [facility]2015-01-06 11:21:00 Test Item Value Reference Range Interpretation Comments Creatinine Lvl (test code = Creatinine 0.8 0.5-1.4 Lvl) [facility]2015-01-06 11:21:00 Test Item Value Reference Range Interpretation Comments Sodium Lvl (test code = Sodium Lvl) 134 135-145 [facility]2015-01-06 11:21:00 Test Item Value Reference Range Interpretation Comments Chloride Lvl (test code = Chloride Lvl) 94 95-109 [facility]2015-01-06 11:21:00 Test Item Value Reference Range Interpretation Comments Calcium Lvl (test code = Calcium Lvl) 9.1 8.5-10.5 [facility]2015-01-06 11:21:00 Test Item Value Reference Range Interpretation Comments CO2 (test code = CO2) 24 24-32 [facility]2015-01-06 11:21:00 Test Item Value Reference Range Interpretation Comments A/G Ratio (test code = A/G Ratio) 0.9 0.7-1.6 [facility]2015-01-06 11:21:00 Test Item Value Reference Range Interpretation Comments Globulin (test code = Globulin) 3.4 2.0-4.0 [facility]2015-01-06 11:21:00 Test Item Value Reference Range Interpretation Comments B/C Ratio (test code = B/C Ratio) 14 6-25 [facility]2015-01-06 11:21:00 Test Item Value Reference Range Interpretation Comments AGAP (test code = AGAP) 19.4 10.0-20.0 [facility]2015-01-06 11:21:00 Test Item Value Reference Range Interpretation Comments Lipase Lvl (test code = Lipase Lvl) 81 73-393 [facility] HospitalVqrbeqoCOAXECCTPM2833-40-83 11:21:00 Test Item Value Reference Range Interpretation Comments Large Plt (test code = Large Plt) Slight [facility] HospitalYivwzmqYZOEJBYCMP9580-54-68 11:21:00 Test Item Value Reference Range Interpretation Comments Basophils # (test code 0.0 See_Comment [Aut omated message] The = Basophils #) system which generated this result tra nsmitted reference range : <=0.2. The reference r leo was not used to int erpret this result as normal/abnormal . [facility] HospitalEjbelngEHITEJVURY3212-91-53 11:21:00 Test Item Value Reference Range Interpretation Comments Anisocyte (test code = 1+ *ABN*(06/26/14 5:21 Anisocyte) AM) [facility] HospitalYxyrsshLSZYAFXUIO9953-09-32 11:21:00 Test Item Value Reference Range Interpretation Comments Monocytes # (test code 0.6 See_Comment [Aut omated message] The = Monocytes #) system which generated this result tra nsmitted reference range : <=0.8. The reference r leo was not used to int erpret this result as normal/abnormal . [facility] HospitalEipyohiEYTYEGPQYS3860-63-49 11:21:00 Test Item Value Reference Range Interpretation Comments Eosinophils # (test code 0.1 See_Comment [A utomated message] The = Eosinophils #) system whic h generated this result tra nsmitted reference range : <=0.5. The reference r leo was not used to int erpret this result as normal/abnormal . [facility] HospitalCgrufkfPRXJVVPQXZ4866-89-07 11:21:00 Test Item Value Reference Range Interpretation Comments Lymphocytes # (test code = Lymphocytes 2.5 1.0-5.5 #) [facility] HospitalTfetjwhWKCRQYVMDA4611-85-16 11:21:00 Test Item Value Reference Range Interpretation Comments Segs (test code = Segs) 63.3 45.0-75.0 [facility] HospitalSgtntuyXOGEBBURYO1079-79-06 11:21:00 Test Item Value Reference Range Interpretation Comments Segs-Bands # (test code = Segs-Bands #) 5.6 1.5-8.1 [facility] HospitalJvydaniKNPMCSIFJR8464-13-79 11:21:00 Test Item Value Reference Range Interpretation Comments Basophils (test code = 0.0 See_Comment [Aut omated message] The Basophils) system which ge nerated this result tra nsmitted reference range : <=1.0. The reference r leo was not used to int erpret this result as normal/abnormal . [facility] HospitalBbhrtdhSMSVMFDYFZ0384-07-12 11:21:00 Test Item Value Reference Range Interpretation Comments Eosinophils (test code = 0.9 See_Comment [A utomated message] The Eosinophils) system which ge nerated this result tra nsmitted reference range : <=4.0. The reference r leo was not used to int erpret this result as normal/abnormal . [facility] HospitalDxgayqgYIMHXLNOAI6468-19-87 11:21:00 Test Item Value Reference Range Interpretation Comments Monocytes (test code = Monocytes) 7.0 2.0-12.0 [facility] HospitalEkkutslYGMYZYECOK0643-24-17 11:21:00 Test Item Value Reference Range Interpretation Comments Lymphocytes (test code = Lymphocytes) 28.8 20.0-40.0 [facility] HospitalXrdaewbPDGNRMAQGT1849-57-10 11:21:00 Test Item Value Reference Range Interpretation Comments WBC (test code = WBC) 8.8 3.7-10.4 [facility] HospitalXgeceivOXZTYZACIY7182-16-57 11:21:00 Test Item Value Reference Range Interpretation Comments RBC (test code = RBC) 5.19 4.20-5.40 [facility] HospitalNykwlwlCEKNIBZEAS7308-35-80 11:21:00 Test Item Value Reference Range Interpretation Comments Hgb (test code = Hgb) 14.4 12.0-16.0 [facility] HospitalFfsbanbJMNZXFMAIV6020-06-88 11:21:00 Test Item Value Reference Range Interpretation Comments Hct (test code = Hct) 43.1 36.0-48.0 [facility] HospitalNlwboxhGLIIRFJXHU0301-41-00 11:21:00 Test Item Value Reference Range Interpretation Comments MCV (test code = MCV) 83.1 80.0-98.0 [facility] HospitalZwomkrqXIVLCOFHPC2389-62-36 11:21:00 Test Item Value Reference Range Interpretation Comments MCH (test code = MCH) 27.8 pg 27.0-31.0 [facility] HospitalBqfbqgkMIRCNTUIIH4280-78-41 11:21:00 Test Item Value Reference Range Interpretation Comments RDW (test code = RDW) 13.1 11.5-14.5 [facility] HospitalLlcwsokERJCORASGW2876-03-23 11:21:00 Test Item Value Reference Range Interpretation Comments MCHC (test code = MCHC) 33.5 32.0-36.0 [facility] HospitalVpjklfsBDRRINFVRN5586-85-62 11:21:00 Test Item Value Reference Range Interpretation Comments Platelet (test code = Platelet) 201 133-450 [facility] HospitalVoqtlcvODVZQYNYWL6260-56-24 11:21:00 Test Item Value Reference Range Interpretation Comments MPV (test code = MPV) 10.4 7.4-10.4 [facility]UpyeuruFMGHWLDFRJ3432-28-15 04:48:55 Test Item Value Reference Range Interpretation Comments UA [place] Yeast (test code = UA Occasional /HPF A [place] Yeast) [facility]aQobyetuUPWALISQWD0121-16-89 04:48:55 Test Item Value Reference Range Interpretation Comments UA Mucus (test code = UA Mucus) Few /LPF N [facility]aVtygyawJNNSDSKQVL6214-28-01 04:48:55 Test Item Value Reference Range Interpretation Comments UA Sq Epi (test code = UA Sq Moderate /LPF A Epi) [facility]aVmgvgkcHMRLQCDNNJ5995-00-26 04:48:55 Test Item Value Reference Range Interpretation Comments Micro? (test code = Performed (04/14/2013 N Micro?) 23:48:55) [facility]aNgkpxbeBNCUFICBQH0714-80-93 04:48:55 Test Item Value Reference Range Interpretation Comments UA WBC (test code = UA WBC) 0-2 /HPF N [facility]aUiuspybFOALTMOJFO5908-24-71 04:48:55 Test Item Value Reference Range Interpretation Comments UA Bacteria (test code = UA Occasional /HPF N Bacteria) [facility]aLrsetxgEZKJCFJEAW4714-25-43 04:48:55 Test Item Value Reference Range Interpretation Comments UA Glucose (test code = UA Glucose) 500 mg/dL A [facility]aUewpyfrNGOEZKSHNQ9016-62-97 04:48:55 Test Item Value Reference Range Interpretation Comments UA Bili (test code = Negative *NA*(04/14/2013 UA Bili) 23:48:55) [facility]aJteetupIMQCTNZUGC0964-63-59 04:48:55 Test Item Value Reference Range Interpretation Comments UA Ketones (test code = Trace A UA Ketones) *ABN*(04/14/2013 23:48:55) [facility]aNsbpdgkRKBGLSBSAM6884-04-52 04:48:55 Test Item Value Reference Range Interpretation Comments UA Blood (test code = Negative (04/14/2013 N UA Blood) 23:48:55) [facility]aNswsfsmRAVBERJWLK5286-26-98 04:48:55 Test Item Value Reference Range Interpretation Comments UA Urobilinogen (test code = UA 0.2 0.1-1.0 N Urobilinogen) [facility]aCucydmmVWNXRIDQUL6726-09-43 04:48:55 Test Item Value Reference Range Interpretation Comments UA Nitrite (test code Negative (04/14/2013 N = UA Nitrite) 23:48:55) [facility]aGstvgvfWJFYFUPHEE4274-79-25 04:48:55 Test Item Value Reference Range Interpretation Comments UA Leuk Est (test Negative (04/14/2013 N code = UA Leuk Est) 23:48:55) [facility]aCfmhustFFIHERFHFQ4218-62-82 04:48:55 Test Item Value Reference Range Interpretation Comments UA Turbidity (test code = Clear (04/14/2013 N UA Turbidity) 23:48:55) [facility]aTkwevubGKGSCWAINP7050-79-10 04:48:55 Test Item Value Reference Range Interpretation Comments UA Color (test code = Yellow *NA*(04/14/2013 UA Color) 23:48:55) [facility]aTiqxospTDLELJQCDS7782-71-41 04:48:55 Test Item Value Reference Range Interpretation Comments UA pH (test code = UA pH) 7.0 1 5.0-8.0 N [facility]aEcmprjnXPVMMTRLZC2042-03-77 04:48:55 Test Item Value Reference Range Interpretation Comments UA Spec Grav (test code = UA Spec 1.025 1 N Grav) [facility]aUkwiznwHZUGYHBCIY8062-13-91 04:48:55 Test Item Value Reference Range Interpretation Comments UA Protein (test code = Trace A UA Protein) *ABN*(04/14/2013 23:48:55) [facility]PygwpgaBXVOCMTPP9226-07-24 04:28:00 Test Item Value Reference Range Interpretation Comments S Preg (test code = S Negative *NA*(04/14/2013 Preg) 23:28:00) [facility] HospitalAqxpkjfQJWIGLBJU6498-66-49 04:28:00 Test Item Value Reference Range Interpretation Comments Lipase Lvl (test code = Lipase Lvl) 233 73-393 N [facility] HospitalYffphleRUWIVOFZA8488-84-75 04:28:00 Test Item Value Reference Range Interpretation Comments Globulin (test code = Globulin) 4.1 2.0-4.0 H [facility] HospitalAysprcoGYGIYOWOD5733-35-61 04:28:00 Test Item Value Reference Range Interpretation Comments AGAP (test code = AGAP) 10.5 10.0-20.0 N [facility] HospitalJzbmbppEKVNGBERP4595-02-69 04:28:00 Test Item Value Reference Range Interpretation Comments B/C Ratio (test code = B/C Ratio) 6 6-25 N [facility] HospitalLbthzgxHYCEXPDTO8344-81-54 04:28:00 Test Item Value Reference Range Interpretation Comments A/G Ratio (test code = A/G Ratio) 0.7 0.7-1.6 N [facility] HospitalWfvallwAXLYGQTCA6416-57-63 04:28:00 Test Item Value Reference Range Interpretation Comments eGFR (test code = eGFR) 130 [facility] HospitalUdzjadtZZWKQKRHP7477-41-04 04:28:00 Test Item Value Reference Range Interpretation Comments Albumin Lvl (test code = Albumin Lvl) 2.9 3.5-5.0 L [facility] HospitalHnxtsorSZOXBVFWI1371-53-58 04:28:00 Test Item Value Reference Range Interpretation Comments ASPARTATE TRANSAMINASE 20 See_Comment N [Aut omated message] (test code = ASPARTATE The s ystem which TRANSAMINASE) generated this result transmitted ref erence range: <=37. Th e reference range was not used to interpr et this result as normal/abnormal . [facility] DallasEaliypsLVAROZQBT5474-33-29 04:28:00 Test Item Value Reference Range Interpretation Comments Bili Total (test code = Bili Total) 0.5 0.2-1.3 N [facility] DallasNfogsswGDUGEVCQT0828-87-75 04:28:00 Test Item Value Reference Range Interpretation Comments Alk Phos (test code = Alk Phos) 89 39-136 N [facility] DallasAndgaxjQTDQBQCEB4123-74-81 04:28:00 Test Item Value Reference Range Interpretation Comments ALANINE AMINOTRANSFERASE 11 See_Comment N [A utomated message] (test code = ALANINE The sys tem which AMINOTRANSFERASE) generated this result transmitted ref erence range: <=65. Th e reference range was not used to int erpret this result as normal/abnormal . [facility] DallasHqqxbimNZADGXQCL8135-81-86 04:28:00 Test Item Value Reference Range Interpretation Comments Creatinine Lvl (test code = Creatinine 0.5 0.5-1.4 N Lvl) [facility] DallasMpeqmlaTJBBHJFKI6305-54-61 04:28:00 Test Item Value Reference Range Interpretation Comments BUN (test code = BUN) 3 7-22 L [facility] DallasBtxmyboBFEWWOIHS5816-84-44 04:28:00 Test Item Value Reference Range Interpretation Comments Glucose Lvl (test code = Glucose Lvl) 255 70-99 H [facility] DallasYuuriawWIAWXWKOL8386-53-86 04:28:00 Test Item Value Reference Range Interpretation Comments Total Protein (test code = Total 7.0 6.4-8.4 N Protein) [facility] DallasQzmpofdMWWZGZTLQ7866-38-55 04:28:00 Test Item Value Reference Range Interpretation Comments Calcium Lvl (test code = Calcium Lvl) 8.7 8.5-10.5 N [facility] DallasCqrbzfcRNROYBPRH2514-29-87 04:28:00 Test Item Value Reference Range Interpretation Comments CO2 (test code = CO2) 29 24-32 N [facility] DallasYmupjdpWHCRWHYYK5522-31-52 04:28:00 Test Item Value Reference Range Interpretation Comments Chloride Lvl (test code = Chloride Lvl) 104 95-109 N [facility] DallasHhsyawmPGAIFVTWG2323-51-41 04:28:00 Test Item Value Reference Range Interpretation Comments Potassium Lvl (test code = Potassium 3.5 3.5-5.1 N Lvl) [facility] HospitalZocggdoOHJKOGERN8713-44-45 04:28:00 Test Item Value Reference Range Interpretation Comments Sodium Lvl (test code = Sodium Lvl) 140 135-145 N [facility] HospitalHxoyvuoUKCBAVJDEM5945-89-36 04:28:00 Test Item Value Reference Range Interpretation Comments PROTIME (test code = PROTIME) 12.1 s 12.0-14.7 N [facility] HospitalPvgtzpiZIRNRJMOAE4391-54-49 04:28:00 Test Item Value Reference Range Interpretation Comments aPTT (test code = aPTT) 39.0 s 22.9-35.8 H [facility] HospitalVpczuezJSDGFZVVUP9235-94-90 04:28:00 Test Item Value Reference Range Interpretation Comments INR (test code = INR) 0.90 0.85-1.17 N [facility] HospitalFsdglhzKLKLWHRGMU3257-57-85 04:28:00 Test Item Value Reference Range Interpretation Comments MCH (test code = MCH) 29.4 pg 27.0-31.0 N [facility] HospitalTofqmghEGEADTHPOX0049-45-00 04:28:00 Test Item Value Reference Range Interpretation Comments MCV (test code = MCV) 86.1 81.0-99.0 N [facility] HospitalTatanwgXJXRLBRPNU9308-91-50 04:28:00 Test Item Value Reference Range Interpretation Comments Hct (test code = Hct) 29.4 36.0-48.0 L [facility] HospitalYpytgpwZVTFFKIVNE4519-51-75 04:28:00 Test Item Value Reference Range Interpretation Comments RDW (test code = RDW) 14.0 11.5-14.5 N [facility] HospitalRnmawdjATGVWFVKKX3444-19-84 04:28:00 Test Item Value Reference Range Interpretation Comments WBC X 10x3 (test code = WBC X 10x3) 6.2 3.7-10.4 N [facility] HospitalDwzwhpcGKFQDUYPUV6102-08-29 04:28:00 Test Item Value Reference Range Interpretation Comments Platelet (test code = Platelet) 178 133-450 N [facility] HospitalHrznniyEBGRBQZOFJ4926-91-59 04:28:00 Test Item Value Reference Range Interpretation Comments MCHC (test code = MCHC) 34.1 32.0-36.0 N [facility] HospitalGxhrzzmANFENIDMAA2061-37-00 04:28:00 Test Item Value Reference Range Interpretation Comments RBC X 10x6 (test code = RBC X 10x6) 3.41 4.20-5.40 L [facility] HospitalHgergcrXMXGVVQVBK8110-86-11 04:28:00 Test Item Value Reference Range Interpretation Comments Hgb (test code = Hgb) 10.0 12.0-16.0 L [facility] HospitalZwrkwgjDWUCBBCLDH8355-57-05 04:28:00 Test Item Value Reference Range Interpretation Comments MPV (test code = MPV) 10.1 7.4-10.4 N [facility] HospitalVonmbscZDZWXINSST9304-33-54 04:28:00 Test Item Value Reference Range Interpretation Comments Segs-Bands # (test code = Segs-Bands #) 4.4 1.5-8.1 N [facility] HospitalFxhbtefTYGMOJPNCO6389-68-06 04:28:00 Test Item Value Reference Range Interpretation Comments Basophils (test code = 0.7 See_Comment N [Aut omated message] The Basophils) system which ge nerated this result tra nsmitted reference range : <=1.0. The reference r leo was not used to int erpret this result as normal/abnormal . [facility] HospitalFnrfauuMJXIPFUXTK3710-94-04 04:28:00 Test Item Value Reference Range Interpretation Comments Segs (test code = Segs) 70.7 45.0-75.0 N [facility] HospitalOsziubpKPLDNNJAYL1624-12-06 04:28:00 Test Item Value Reference Range Interpretation Comments Monocytes # (test code 0.3 See_Comment N [Aut omated message] The = Monocytes #) system which generated this result tra nsmitted reference range : <=0.8. The reference r leo was not used to int erpret this result as normal/abnormal . [facility] HospitalHdbrgpsATFQQOOZQU9346-29-67 04:28:00 Test Item Value Reference Range Interpretation Comments Lymphocytes # (test code = Lymphocytes 1.2 1.0-5.5 N #) [facility] HospitalOzcizltVJCXAOWYFF9651-46-01 04:28:00 Test Item Value Reference Range Interpretation Comments Monocytes (test code = Monocytes) 4.5 2.0-12.0 N [facility] HospitalAahydybPRDVPKPARJ7392-19-74 04:28:00 Test Item Value Reference Range Interpretation Comments Eosinophils (test code = 4.1 See_Comment H [A utomated message] The Eosinophils) system which ge nerated this result tra nsmitted reference range : <=4.0. The reference r leo was not used to int erpret this result as normal/abnormal . [facility] HospitalLuvxiirDLTYUGFZTX8804-17-61 04:28:00 Test Item Value Reference Range Interpretation Comments Lymphocytes (test code = Lymphocytes) 20.0 20.0-40.0 N [facility] HospitalDsvogcvTVDNTZELLG8329-08-21 04:28:00 Test Item Value Reference Range Interpretation Comments Basophils # (test code 0.0 See_Comment N [Aut omated message] The = Basophils #) system which generated this result tra nsmitted reference range : <=0.2. The reference r leo was not used to int erpret this result as normal/abnormal . [facility] HospitalKguluteZCATVCPDPA2137-24-39 04:28:00 Test Item Value Reference Range Interpretation Comments Eosinophils # (test code 0.3 See_Comment N [A utomated message] The = Eosinophils #) system whic h generated this result tra nsmitted reference range : <=0.5. The reference r leo was not used to int erpret this result as normal/abnormal . [facility] GLUCOSE NYVLYUV9726-81-27 01:12:00 Test Item Value Reference Range Interpretation Comments Gluc POC Lifscn (test code = Gluc POC 260 70-99 H Lifscn) [facility] GLUCOSE ROJLJNG9326-09-63 01:12:00 Test Item Value Reference Range Interpretation Comments Comment1 (test code = Comment1) Notify RN/MD [facility]KyptixvKSJMRPTKZQ2637-39-81 23:40:00 Test Item Value Reference Range Interpretation Comments UA Protein (test code = Trace A UA Protein) *ABN*(03/14/2012 18:40:00) [facility]OktqjmbLKDSGODHKD4385-83-90 23:40:00 Test Item Value Reference Range Interpretation Comments UA pH (test code = UA pH) 6.0 1 5.0-8.0 [facility]WqpahdnRNALTNWSNN4896-98-78 23:40:00 Test Item Value Reference Range Interpretation Comments UA Ketones (test code = >=80 mg/dL UA Ketones) *NA*(03/14/2012 18:40:00) [facility]aNhnrixiYELJBLSJVQ6014-83-29 23:40:00 Test Item Value Reference Range Interpretation Comments UA Glucose (test code = >=1000 mg/dL A UA Glucose) *ABN*(03/14/2012 18:40:00) [facility]aWkntxyuGZHFBWGOQE2088-06-64 23:40:00 Test Item Value Reference Range Interpretation Comments UA Blood (test code = Negative (03/14/2012 N UA Blood) 18:40:00) [facility]aYbnqpnfXWQTMJDMEM2652-74-31 23:40:00 Test Item Value Reference Range Interpretation Comments UA Nitrite (test code Negative (03/14/2012 N = UA Nitrite) 18:40:00) [facility]aAyburywXDCCKPYUIU9886-87-98 23:40:00 Test Item Value Reference Range Interpretation Comments UA Urobilinogen (test code = UA 0.2 0.1-1.0 N Urobilinogen) [facility]aMmtqmpyRJHLMXJCVN0926-31-60 23:40:00 Test Item Value Reference Range Interpretation Comments UA Leuk Est (test Negative (03/14/2012 N code = UA Leuk Est) 18:40:00) [facility]aQnmggrmLVNSBGBLCT6662-32-28 23:40:00 Test Item Value Reference Range Interpretation Comments UA Bili (test code = Negative *NA*(03/14/2012 UA Bili) 18:40:00) [facility]aOzukrupGQUBEKQRLQ8788-68-83 23:40:00 Test Item Value Reference Range Interpretation Comments UA Turbidity (test code = Clear (03/14/2012 N UA Turbidity) 18:40:00) [facility]aDhhupynYYAKDCYRSP1525-77-09 23:40:00 Test Item Value Reference Range Interpretation Comments UA Color (test code = Yellow *NA*(03/14/2012 UA Color) 18:40:00) [facility]aSsbsvdlIQYPWTBABE2557-00-98 23:40:00 Test Item Value Reference Range Interpretation Comments UA Spec Grav (test >=1.030 A code = UA Spec Grav) *ABN*(03/14/2012 18:40:00) [facility]pxyehlFBSKITTIFB1570-08-31 23:40:00 Test Item Value Reference Range Interpretation Comments UA Sq Epi (test code Occasional /LPF N = UA Sq Epi) (03/14/2012 18:40:00) [facility]30[facility]71 23:40:00 Test Item Value Reference Range Interpretation Comments UA WBC (test code = UA 3-5 /HPF (03/14/2012 N WBC) 18:40:00) [facility]HOGDCTUL4679-64-67 23:40:00 Test Item Value Reference Range Interpretation Comments UA Bacteria (test code Occasional /HPF N = UA Bacteria) (03/14/2012 18:40:00) [facility]CidqttfSEPLAVIOF5417-83-12 22:50:00 Test Item Value Reference Range Interpretation Comments S Preg (test code = S Negative *NA*(03/14/2012 Preg) 17:50:00) [facility] HospitalEleoccuOVVXDDVXZ6610-17-24 22:50:00 Test Item Value Reference Range Interpretation Comments Lipase Lvl (test code = Lipase Lvl) 45 73-393 L [facility] HospitalBwoudraYJLZFJQPU2856-99-75 22:50:00 Test Item Value Reference Range Interpretation Comments A/G Ratio (test code = A/G Ratio) 1.2 0.7-1.6 N [facility] HospitalMpibrbpCYLRDCKXB9435-67-24 22:50:00 Test Item Value Reference Range Interpretation Comments Globulin (test code = Globulin) 3.8 2.0-4.0 N [facility] HospitalCifywzaHSSAREEFV9662-60-02 22:50:00 Test Item Value Reference Range Interpretation Comments B/C Ratio (test code = B/C Ratio) 21 6-25 N [facility] HospitalRftwqdkPJRRQBIEG7385-48-31 22:50:00 Test Item Value Reference Range Interpretation Comments AGAP (test code = AGAP) 16.8 10.0-20.0 N [facility] HospitalFnygbzaJGBCRNATB9441-91-51 22:50:00 Test Item Value Reference Range Interpretation Comments Bili Total (test code = Bili Total) 1.1 0.2-1.3 N [facility] HospitalTqgnlucEEIXZXHUD2173-91-25 22:50:00 Test Item Value Reference Range Interpretation Comments Total Protein (test code = Total 8.2 6.4-8.4 N Protein) [facility] HospitalXndjjivAFQRZGFQX7877-31-37 22:50:00 Test Item Value Reference Range Interpretation Comments Potassium Lvl (test code = Potassium 3.8 3.5-5.1 N Lvl) [facility] HospitalExfmohiGQEMQNWHC8638-28-14 22:50:00 Test Item Value Reference Range Interpretation Comments Creatinine Lvl (test code = Creatinine 0.7 0.5-1.4 N Lvl) [facility] HospitalAkkqsuoSLWTLOXLX4948-00-90 22:50:00 Test Item Value Reference Range Interpretation Comments Sodium Lvl (test code = Sodium Lvl) 139 135-145 N [facility] HospitalVsmfrbvBCQJOGXMY9019-37-83 22:50:00 Test Item Value Reference Range Interpretation Comments Chloride Lvl (test code = Chloride Lvl) 99 95-109 N [facility] HospitalYvvouecHGUMQILOL8889-07-50 22:50:00 Test Item Value Reference Range Interpretation Comments CO2 (test code = CO2) 27 24-32 N [facility] HospitalGrjmgldECJOPTANQ8273-35-21 22:50:00 Test Item Value Reference Range Interpretation Comments Glucose Lvl (test code = Glucose Lvl) 301 70-99 H [facility] HospitalJcvupyjOMPVBROKO3758-91-41 22:50:00 Test Item Value Reference Range Interpretation Comments BUN (test code = BUN) 15 7-22 N [facility] HospitalSdkffgxNMSRVWRPU2160-61-28 22:50:00 Test Item Value Reference Range Interpretation Comments ALT (test code = ALT) 24 See_Comment N [Auto mated message] The system which ge nerated this result transmit rohit reference range : <=65. The reference range was not used to interpr et this result as reji l/abnormal. [facility] HospitalTqjmrffWZVZMGONS1167-75-08 22:50:00 Test Item Value Reference Range Interpretation Comments AST (test code = AST) 20 See_Comment N [Auto mated message] The system which ge nerated this result transmit rohit reference range : <=37. The reference range was not used to interpr et this result as reji l/abnormal. [facility] HospitalCqbkkuwDLZMURTNG7489-08-16 22:50:00 Test Item Value Reference Range Interpretation Comments Alk Phos (test code = Alk Phos) 67 39-136 N [facility] HospitalPylqdjsEUITROKFN0984-90-91 22:50:00 Test Item Value Reference Range Interpretation Comments Albumin Lvl (test code = Albumin Lvl) 4.4 3.5-5.0 N [facility] HospitalBvzzhocBTHUKODQL4098-47-02 22:50:00 Test Item Value Reference Range Interpretation Comments Calcium Lvl (test code = Calcium Lvl) 9.9 8.5-10.5 N [facility] HospitalCjfbdsuIGKBVSGZIQ2723-04-87 22:50:00 Test Item Value Reference Range Interpretation Comments MPV (test code = MPV) 11.8 7.4-10.4 H [facility] HospitalJppprvmGRJQBEDRUD4792-46-01 22:50:00 Test Item Value Reference Range Interpretation Comments MCHC (test code = MCHC) 35.9 32.0-36.0 N [facility] HospitalLoouebkPIOERPPLMS3404-85-82 22:50:00 Test Item Value Reference Range Interpretation Comments MCH (test code = MCH) 31.2 pg 27.0-31.0 H [facility] HospitalGhnjkroINTJPOLGOP5469-02-79 22:50:00 Test Item Value Reference Range Interpretation Comments Platelet (test code = Platelet) 189 133-450 N [facility] HospitalQjgqxmxBHZYSMEHNB9319-07-71 22:50:00 Test Item Value Reference Range Interpretation Comments RDW (test code = RDW) 13.1 11.5-14.5 N [facility] HospitalCoqhiscETTCRKBMMT5691-98-25 22:50:00 Test Item Value Reference Range Interpretation Comments Hct (test code = Hct) 40.7 36.0-48.0 N [facility] HospitalDxvubehKGHKJGIEIZ0133-50-77 22:50:00 Test Item Value Reference Range Interpretation Comments Hgb (test code = Hgb) 14.6 12.0-16.0 N [facility] HospitalTfzsyntKSCEJXAMNQ6496-71-17 22:50:00 Test Item Value Reference Range Interpretation Comments MCV (test code = MCV) 87.0 81.0-99.0 N [facility] HospitalOzmpytgAFBQCKQHPW7795-90-82 22:50:00 Test Item Value Reference Range Interpretation Comments WBC (test code = WBC) 11.7 3.7-10.4 H [facility] HospitalEriecxbYTHDHBDSYU9077-86-95 22:50:00 Test Item Value Reference Range Interpretation Comments RBC (test code = RBC) 4.68 4.20-5.40 N [facility] HospitalSmbfnikKUHUXUGIKF3207-66-77 22:50:00 Test Item Value Reference Range Interpretation Comments Basophils # (test code 0.0 See_Comment N [Aut omated message] The = Basophils #) system which generated this result tra nsmitted reference range : <=0.2. The reference r leo was not used to int erpret this result as normal/abnormal . [facility] HospitalKxxomczYYEOSIHTZW4560-18-02 22:50:00 Test Item Value Reference Range Interpretation Comments Basophils (test code = 0.2 See_Comment N [Aut omated message] The Basophils) system which ge nerated this result tra nsmitted reference range : <=1.0. The reference r leo was not used to int erpret this result as normal/abnormal . [facility] HospitalBtgvyvoDZDSMFEPNK5472-87-40 22:50:00 Test Item Value Reference Range Interpretation Comments Eosinophils # (test code 0.0 See_Comment N [A utomated message] The = Eosinophils #) system whic h generated this result tra nsmitted reference range : <=0.5. The reference r leo was not used to int erpret this result as normal/abnormal . [facility] HospitalEbjdgpjATSTIKHXGZ1218-97-35 22:50:00 Test Item Value Reference Range Interpretation Comments Monocytes # (test code 0.4 See_Comment N [Aut omated message] The = Monocytes #) system which generated this result tra nsmitted reference range : <=0.8. The reference r leo was not used to int erpret this result as normal/abnormal . [facility] HospitalNddgbveWGQFRIXBPZ7922-12-52 22:50:00 Test Item Value Reference Range Interpretation Comments Segs-Bands # (test code = Segs-Bands #) 10.6 1.5-8.1 H [facility] HospitalCdcbxshNIIFLKXPSZ9056-93-30 22:50:00 Test Item Value Reference Range Interpretation Comments Lymphocytes # (test code = Lymphocytes 0.7 1.0-5.5 L #) [facility] HospitalKozdzilMOXVYZQKYO7528-69-88 22:50:00 Test Item Value Reference Range Interpretation Comments Monocytes (test code = Monocytes) 3.4 2.0-12.0 N [facility] HospitalIwslupkOJGTCCFJAF9434-68-75 22:50:00 Test Item Value Reference Range Interpretation Comments Plt Morph (test code = Normal (03/14/2012 N Plt Morph) 17:50:00) [facility] HospitalTdkwpduCZPTBHHWDG9827-04-83 22:50:00 Test Item Value Reference Range Interpretation Comments Lymphocytes (test code = Lymphocytes) 6.0 20.0-40.0 L [facility] HospitalOmiqkniLLNSEEYZIG9939-04-58 22:50:00 Test Item Value Reference Range Interpretation Comments Eosinophils (test code = 0.0 See_Comment N [A utomated message] The Eosinophils) system which ge nerated this result tra nsmitted reference range : <=4.0. The reference r leo was not used to int erpret this result as normal/abnormal . [facility]AgvuncpRUICBZFZMC7461-59-72 22:50:00 Test Item Value Reference Range Interpretation Comments Segs (test code = Segs) 90.4 45.0-75.0 H [facility]JkfvymfLSOQHODANJ8658-58-34 22:50:00 Test Item Value Reference Range Interpretation Comments RBC Morph (test code = Normal (03/14/2012 N RBC Morph) 17:50:00) [facility] GLUCOSE ASESABY1323-67-43 23:43:00 Test Item Value Reference Range Interpretation Comments Gluc POC Lifscn (test code = Gluc POC 167 70-99 H Lifscn) [facility] GLUCOSE PVMAYSI4497-87-78 23:43:00 Test Item Value Reference Range Interpretation Comments Comment1 (test code = Comment1) Notify RN/ [facility] GLU[facility] FLBYQVR0769-05-33 23:43:00 Test Item Value Reference Range Interpretation Comments Comment2 (test code = Comment2) Sliding Scale [facility] AAQCONR6493-81-30 17:40:00 Test Item Value Reference Range Interpretation Comments Gluc POC Lifscn (test code = Gluc POC 189 70-99 H Lifscn) [facility] GLUCOSE LTZCMSD8535-81-98 17:40:00 Test Item Value Reference Range Interpretation Comments Comment1 (test code = Comment1) [facility] RN[facility] GLUCOSE WTYNCYH9341-21-19 17:40:00 Test Item Value Reference Range Interpretation Comments Comment2 (test code = Comment2) Sliding Scale [facility] GLUCOSE XZVZYTR6471-07-18 13:34:00 Test Item Value Reference Range Interpretation Comments Comment2 (test code = Comment2) Sliding Scale [facility] GLU[facility]SE RVAMTBD0586-05-23 13:34:00 Test Item Value Reference Range Interpretation Comments Gluc POC Lifscn (test code = Gluc POC 110 70-99 H Lifscn) [facility] GLUCOSE STBALES5418-46-05 13:34:00 Test Item Value Reference Range Interpretation Comments Comment1 (test code = Comment1) [facility]CbykvxdMKQKVPRMW3969-08-49 00:00:00 Test Item Value Reference Range Interpretation Comments U Preg (test code = U Negative (11/28/2011 N Preg) 19:00:00) [facility]andVqfgsbpRWUWXXMXYO3712-49-01 00:00:00 Test Item Value Reference Range Interpretation Comments Micro? (test code = Performed (11/28/2011 N Micro?) 19:00:00) [facility]andBwwkwozUOLKORYOTV0812-03-42 00:00:00 Test Item Value Reference Range Interpretation Comments UA Sq Epi (test code Occasional /LPF N = UA Sq Epi) (11/28/2011 19:00:00) [facility]andXxvepkkUJKLVEHOAH9338-43-68 00:00:00 Test Item Value Reference Range Interpretation Comments UA RBC (test None Seen See_Comment N [Automated mes pastor] code = UA RBC) (11/28/2011 The system wh ich 19:00:00) generated this result transmitted ref erence range: <=2. The reference range was not used to int erpret this result as normal/abnormal . [facility]andPlfqeewGQAXDSEUKQ6219-16-42 00:00:00 Test Item Value Reference Range Interpretation Comments UA WBC (test code Occasional See_Comment [Automate d message] The = UA WBC) system which ge nerated this result tra nsmitted reference range : <=5. The reference range was not used to interpr et this result as normal/abnormal . [facility]andLvmkgnhEMHGZDWGSN5248-72-46 00:00:00 Test Item Value Reference Range Interpretation Comments UA Protein (test code Negative mg/dL N = UA Protein) (11/28/2011 19:00:00) [facility]andMhvenjaKTFNTOMMNX0681-71-94 00:00:00 Test Item Value Reference Range Interpretation Comments UA pH (test code = UA pH) 7.0 1 5.0-8.0 N [facility] DallasGhbxaidYIZAQHOETB9276-49-89 00:00:00 Test Item Value Reference Range Interpretation Comments UA Spec Grav (test code = UA Spec 1.020 1 N Grav) [facility]andVryqbsuLIUOCHXWNU3365-61-24 00:00:00 Test Item Value Reference Range Interpretation Comments UA Turbidity (test code = Clear (11/28/2011 N UA Turbidity) 19:00:00) [facility]aTuizgmhEEBBAIBHAF8967-51-71 00:00:00 Test Item Value Reference Range Interpretation Comments UA Color (test code = Yellow *NA*(11/28/2011 UA Color) 19:00:00) [facility]aOwitdqsSRBAQRBUZK7722-24-15 00:00:00 Test Item Value Reference Range Interpretation Comments UA Urobilinogen (test code = UA 0.2 0.1-1.0 N Urobilinogen) [facility]aAlltocfABCTVQHJIZ7472-90-98 00:00:00 Test Item Value Reference Range Interpretation Comments UA Blood (test code = Negative (11/28/2011 N UA Blood) 19:00:00) [facility]aLrizepnWQMZLYXYJU5414-58-98 00:00:00 Test Item Value Reference Range Interpretation Comments UA Bili (test code = Negative *NA*(11/28/2011 UA Bili) 19:00:00) [facility]aJhopogwUKHGOHFFJT2328-39-83 00:00:00 Test Item Value Reference Range Interpretation Comments UA Ketones (test code = >=80 mg/dL A UA Ketones) *ABN*(11/28/2011 19:00:00) [facility]aEefutesBWTPOFTQIA6626-48-35 00:00:00 Test Item Value Reference Range Interpretation Comments UA Glucose (test code = >=1000 mg/dL A UA Glucose) *ABN*(11/28/2011 19:00:00) [facility]aYxypiwmFZPJYNOYFW1062-14-51 00:00:00 Test Item Value Reference Range Interpretation Comments UA Nitrite (test code Negative (11/28/2011 N = UA Nitrite) 19:00:00) [facility]aKqgxkvbQHIUVVCMEZ9212-21-50 00:00:00 Test Item Value Reference Range Interpretation Comments UA Leuk Est (test Negative (11/28/2011 N code = UA Leuk Est) 19:00:00) [facility] HospitalLofxpevBZSUICINH5168-42-53 20:41:00 Test Item Value Reference Range Interpretation Comments pO2 Roberth (test code = pO2 Roberth) 60 20-49 H [facility] HospitalSzwdcavKVLROLYLO1520-91-12 20:41:00 Test Item Value Reference Range Interpretation Comments pCO2 Roberth (test code = pCO2 Roberth) 41 38-52 N [facility] HospitalHsrtspmWMESXJSVD7187-71-29 20:41:00 Test Item Value Reference Range Interpretation Comments pH Roberth (test code = pH Roberth) 7.45 7.28-7.42 H [facility] HospitalHqdyyetWLPYIPZEX7041-59-68 20:41:00 Test Item Value Reference Range Interpretation Comments Temp Roberth (test code = Temp Roberth) 37.0 [facility] HospitalJfjddhrEKQAZSSCV9736-29-23 20:41:00 Test Item Value Reference Range Interpretation Comments O2 Sat Roberth (test code = O2 Sat Roberth) 92.0 40.0-70.0 H [facility] HospitalMjjexiqGEFPSDOYG4706-73-01 20:41:00 Test Item Value Reference Range Interpretation Comments BE Roberth (test code = 4 See_Comment H [Automa rohit message] The BE Roberth) system which ge nerated this result transmit rohit reference range : <=2. The reference range was not used to interpr et this result as reji l/abnormal. [facility] HospitalDplxojvITHMIAWEV1143-66-69 20:41:00 Test Item Value Reference Range Interpretation Comments HCO3 Roberth (test code = HCO3 Roberth) 28.5 22.0-26.0 H [facility] HospitalQwsxsiuNXYBLRMWB3268-42-50 20:00:00 Test Item Value Reference Range Interpretation Comments Lactic Acid Lvl (test code = Lactic 1.6 0.5-2.2 N Acid Lvl) [facility] HospitalSpnehmxHCHDTYDRP3321-97-71 20:00:00 Test Item Value Reference Range Interpretation Comments Lipase Lvl (test code = Lipase Lvl) 125 73-393 N [facility] HospitalRvawufaQPDOAIQWX4543-63-84 20:00:00 Test Item Value Reference Range Interpretation Comments Albumin Lvl (test code = Albumin Lvl) 4.2 3.5-5.0 N [facility] HospitalTwgsjojUDZIRGFZZ4545-21-86 20:00:00 Test Item Value Reference Range Interpretation Comments CO2 (test code = CO2) 23 24-32 L [facility] HospitalQhkswpqORWWKHWGK4804-56-22 20:00:00 Test Item Value Reference Range Interpretation Comments Chloride Lvl (test code = Chloride Lvl) 98 95-109 N [facility] HospitalDjscvchTFEDCSQMW4807-65-05 20:00:00 Test Item Value Reference Range Interpretation Comments Potassium Lvl (test code = Potassium 3.8 3.5-5.1 N Lvl) [facility] HospitalYpnrxfjHZUKLUGMK7201-18-60 20:00:00 Test Item Value Reference Range Interpretation Comments Sodium Lvl (test code = Sodium Lvl) 138 135-145 N [facility] HospitalIrminobHVZBVTVRB9092-75-75 20:00:00 Test Item Value Reference Range Interpretation Comments Creatinine Lvl (test code = Creatinine 0.7 0.5-1.4 N Lvl) [facility] HospitalBrdojobEXDRCMGSH6867-27-33 20:00:00 Test Item Value Reference Range Interpretation Comments BUN (test code = BUN) 9 7-22 N [facility] HospitalXgaalvuCGCAMJPWL4789-03-73 20:00:00 Test Item Value Reference Range Interpretation Comments Glucose Lvl (test code = Glucose Lvl) 269 70-99 H [facility] HospitalOomuqmdXJZPJKTZB6431-69-80 20:00:00 Test Item Value Reference Range Interpretation Comments B/C Ratio (test code = B/C Ratio) 13 6-25 N [facility] HospitalUvficboMHXRZQGSI4291-88-50 20:00:00 Test Item Value Reference Range Interpretation Comments AGAP (test code = AGAP) 20.8 10.0-20.0 H [facility] HospitalGgxewvwDMIHTTLBN9836-03-04 20:00:00 Test Item Value Reference Range Interpretation Comments Calcium Lvl (test code = Calcium Lvl) 9.3 8.5-10.5 N [facility] HospitalXfnkndwOAGFNJJRF4938-41-02 20:00:00 Test Item Value Reference Range Interpretation Comments Total Protein (test code = Total 6.7 6.4-8.4 N Protein) [facility] HospitalTczrykwYYRGKBTJF5002-11-83 20:00:00 Test Item Value Reference Range Interpretation Comments A/G Ratio (test code = A/G Ratio) 1.7 0.7-1.6 H [facility] HospitalMnbrefvBTZOFXMQT8374-94-59 20:00:00 Test Item Value Reference Range Interpretation Comments Globulin (test code = Globulin) 2.5 2.0-4.0 N [facility] HospitalTqzseanZELAGAOIF4205-49-42 20:00:00 Test Item Value Reference Range Interpretation Comments AST (test code = AST) 18 See_Comment N [Auto mated message] The system which ge nerated this result transmit rohit reference range : <=37. The reference range was not used to interpr et this result as reji l/abnormal. [facility] HospitalVlqdzjjBXMIKXTLP6217-97-34 20:00:00 Test Item Value Reference Range Interpretation Comments Alk Phos (test code = Alk Phos) 62 39-136 N [facility] HospitalFwmeamhTRCITGRKT5570-63-40 20:00:00 Test Item Value Reference Range Interpretation Comments ALT (test code = ALT) 32 See_Comment N [Auto mated message] The system which ge nerated this result transmit rohit reference range : <=65. The reference range was not used to interpr et this result as reji l/abnormal. [facility] HospitalWvjnccbCWIYBJLIZ2774-30-24 20:00:00 Test Item Value Reference Range Interpretation Comments Bili Total (test code = Bili Total) 0.7 0.2-1.3 N [facility] HospitalVxlltzmVANITXFQOG8295-98-49 20:00:00 Test Item Value Reference Range Interpretation Comments Anisocyte (test code = 1+ *ABN*(11/28/2011 A Anisocyte) 15:00:00) [facility] HospitalUyysuakMHGYRPXKZQ7472-48-77 20:00:00 Test Item Value Reference Range Interpretation Comments Monocytes # (test code 0.1 See_Comment N [Aut omated message] The = Monocytes #) system which generated this result tra nsmitted reference range : <=0.8. The reference r leo was not used to int erpret this result as normal/abnormal . [facility] HospitalNpnqowmUOFPWBQPJJ4259-04-28 20:00:00 Test Item Value Reference Range Interpretation Comments Eosinophils # (test code 0.0 See_Comment N [A utomated message] The = Eosinophils #) system whic h generated this result tra nsmitted reference range : <=0.5. The reference r leo was not used to int erpret this result as normal/abnormal . [facility] HospitalUyzqrlpJVRFMOGAOE7358-71-79 20:00:00 Test Item Value Reference Range Interpretation Comments Basophils # (test code 0.0 See_Comment N [Aut omated message] The = Basophils #) system which generated this result tra nsmitted reference range : <=0.2. The reference r leo was not used to int erpret this result as normal/abnormal . [facility] HospitalAynsqkyCLIVUUKSUS5238-38-68 20:00:00 Test Item Value Reference Range Interpretation Comments Neut Vac (test code = Slight *ABN*(11/28/2011 A Neut Vac) 15:00:00) [facility] HospitalRqgrwpqSNHEBQIDPM7582-84-83 20:00:00 Test Item Value Reference Range Interpretation Comments Large Plt (test code = Slight *ABN*(11/28/2011 A Large Plt) 15:00:00) [facility] HospitalCeqnypxWJVWDPDCKV7543-78-24 20:00:00 Test Item Value Reference Range Interpretation Comments Segs-Bands # (test code = Segs-Bands #) 5.7 1.5-8.1 N [facility] HospitalBzvchgjTZPTJBPSYG6732-62-21 20:00:00 Test Item Value Reference Range Interpretation Comments Lymphocytes # (test code = Lymphocytes 0.8 1.0-5.5 L #) [facility] HospitalQxjscsuSCCCMYOFXZ6845-15-31 20:00:00 Test Item Value Reference Range Interpretation Comments Eosinophils (test code = 0.2 See_Comment N [A utomated message] The Eosinophils) system which ge nerated this result tra nsmitted reference range : <=4.0. The reference r leo was not used to int erpret this result as normal/abnormal . [facility] HospitalEcgyljkDLWITPIOTN8009-50-07 20:00:00 Test Item Value Reference Range Interpretation Comments Basophils (test code = 0.0 See_Comment N [Aut omated message] The Basophils) system which ge nerated this result tra nsmitted reference range : <=1.0. The reference r leo was not used to int erpret this result as normal/abnormal . [facility] HospitalKmcpxiwDEPSROBWJS5187-55-85 20:00:00 Test Item Value Reference Range Interpretation Comments Monocytes (test code = Monocytes) 1.9 2.0-12.0 L [facility] HospitalGjjtnbhXUYYQEVOXN9361-67-05 20:00:00 Test Item Value Reference Range Interpretation Comments Segs (test code = Segs) 86.2 45.0-75.0 H [facility] HospitalVyzbesvRLDGTLPEQA7496-59-96 20:00:00 Test Item Value Reference Range Interpretation Comments Lymphocytes (test code = Lymphocytes) 11.7 20.0-40.0 L [facility] HospitalGvywdfoSXORHRFGDR6162-73-43 20:00:00 Test Item Value Reference Range Interpretation Comments MPV (test code = MPV) 10.8 7.4-10.4 H [facility] HospitalHaczmbjXAMBVAFXKT1259-11-72 20:00:00 Test Item Value Reference Range Interpretation Comments Platelet (test code = Platelet) 161 133-450 N [facility] HospitalDyaqifxHVHRKNBOPT6140-94-07 20:00:00 Test Item Value Reference Range Interpretation Comments MCHC (test code = MCHC) 35.6 32.0-36.0 N [facility] HospitalJvzdwwpNGNVRSTEPB7213-84-51 20:00:00 Test Item Value Reference Range Interpretation Comments RDW (test code = RDW) 12.4 11.5-14.5 N [facility] HospitalRsrknovNRGJQWLOWG8901-87-78 20:00:00 Test Item Value Reference Range Interpretation Comments MCH (test code = MCH) 30.7 pg 27.0-31.0 N [facility] HospitalXqzbsuoRWLERPNFNU2548-35-30 20:00:00 Test Item Value Reference Range Interpretation Comments MCV (test code = MCV) 86.1 81.0-99.0 N [facility] HospitalEkvnnlqWMCOYYUEJV1339-42-45 20:00:00 Test Item Value Reference Range Interpretation Comments Hct (test code = Hct) 33.6 36.0-48.0 L [facility] HospitalHdrhiaaNHREECZOVC5015-15-31 20:00:00 Test Item Value Reference Range Interpretation Comments Hgb (test code = Hgb) 12.0 12.0-16.0 N [facility]MpmhvgxKJRLYWKBRN2373-36-38 20:00:00 Test Item Value Reference Range Interpretation Comments RBC (test code = RBC) 3.90 4.20-5.40 L [facility] HospitalHhibedhJLCGIVFCLF4744-39-99 20:00:00 Test Item Value Reference Range Interpretation Comments WBC (test code = WBC) 6.6 3.7-10.4 N [facility]HjqqkzuHPTREUDGN3005-35-03 19:51:00 Test Item Value Reference Range Interpretation Comments UDS Note (test code = See Note UDS Note) 5*NA*(11/28/2011 14:51:00) [facility] HospitalLzqolprKSBEOYCZM2110-29-79 19:51:00 Test Item Value Reference Range Interpretation Comments U Phencyc Scr (test Negative code = U Phencyc Scr) *NA*(11/28/2011 14:51:00) [facility] HospitalYkfjsmeSHBSZNDGL4400-90-95 19:51:00 Test Item Value Reference Range Interpretation Comments U Kelly Scr (test code Negative *NA*(11/28/2011 = U Kelly Scr) 14:51:00) [facility] HospitalJiribszDGQRNONTL1321-06-55 19:51:00 Test Item Value Reference Range Interpretation Comments U Amph Scr (test code Negative *NA*(11/28/2011 = U Amph Scr) 14:51:00) [facility]MscnngiFDZDILMJB1516-68-07 19:51:00 Test Item Value Reference Range Interpretation Comments U Opiate Scr (test Negative code = U Opiate Scr) *NA*(11/28/2011 14:51:00) [facility] HospitalHnpofksIPSRZSRGY0197-02-90 19:51:00 Test Item Value Reference Range Interpretation Comments U Cocaine Scr (test Negative code = U Cocaine Scr) *NA*(11/28/2011 14:51:00) [facility] HospitalMecaofzEYLIGEQDV5137-03-42 19:51:00 Test Item Value Reference Range Interpretation Comments U Cannab Scr (test Negative code = U Cannab Scr) *NA*(11/28/2011 14:51:00) [facility] HospitalIhtjjgzKQPGHGNXB5385-96-12 19:51:00 Test Item Value Reference Range Interpretation Comments U Benzodia Scr (test Negative code = U Benzodia Scr) *NA*(11/28/2011 14:51:00) [facility] GLUCOSE HDZORGX9019-16-61 16:20:00 Test Item Value Reference Range Interpretation Comments Comment1 (test code = Comment1) Notify RN/MD [facility] GLUCOSE CEAYXEB8105-89-16 16:20:00 Test Item Value Reference Range Interpretation Comments Gluc POC Lifscn (test code = Gluc POC 328 70-99 H Lifscn) [facility] HospitalUvolpsaPNSUUZDWL2516-68-30 15:30:00 Test Item Value Reference Range Interpretation Comments U Preg (test code = U Negative (09/18/2011 N Preg) 10:30:00) [facility]qrf[facility]RMGMBNUILK4204[facility] 15:30:00 Test Item Value Reference Range Interpretation Comments UA WBC (test code = UA None Seen (09/18/2011 N WBC) 10:30:00) [facility]andEmqxahzWBBABIRCUL7486-37-63 15:30:00 Test Item Value Reference Range Interpretation Comments UA RBC (test None Seen See_Comment N [Automated mes pastor] code = UA RBC) (09/18/2011 The system wh ich 10:30:00) generated this result transmitted ref erence range: <=2. The reference range was not used to int erpret this result as normal/abnormal . [facility]EfatmjjMVBOHHPSIV4921-17-85 15:30:00 Test Item Value Reference Range Interpretation Comments UA Bacteria (test code = None Seen (09/18/2011 N UA Bacteria) 10:30:00) [facility]CdqhwnlNWEWCRDRPY4713-53-11 15:30:00 Test Item Value Reference Range Interpretation Comments UA Amorph Destiny (test Few /HPF A code = UA Amorph Destiny) *ABN*(09/18/2011 10:30:00) [facility]aBorxqdtLOSCPOAMDM8721-38-58 15:30:00 Test Item Value Reference Range Interpretation Comments Micro? (test code = Performed (09/18/2011 N Micro?) 10:30:00) [facility]aHtbygmpEQPIYRWVWG2837-95-55 15:30:00 Test Item Value Reference Range Interpretation Comments UA Sq Epi (test code = Rare /LPF (09/18/2011 N UA Sq Epi) 10:30:00) [facility]aArmywckTJRCSUSAAM5628-52-52 15:30:00 Test Item Value Reference Range Interpretation Comments UA Ketones (test code = 15 mg/dL A UA Ketones) *ABN*(09/18/2011 10:30:00) [facility]aVcxlybvMWYYNSBQHC4676-44-59 15:30:00 Test Item Value Reference Range Interpretation Comments UA Glucose (test code = >=1000 mg/dL A UA Glucose) *ABN*(09/18/2011 10:30:00) [facility]aByahcxwHYNZCVNZUA1636-68-90 15:30:00 Test Item Value Reference Range Interpretation Comments UA Protein (test code = Trace A UA Protein) *ABN*(09/18/2011 10:30:00) [facility]aVhlbccdTYQYDNGUHE0313-14-62 15:30:00 Test Item Value Reference Range Interpretation Comments UA Urobilinogen (test code = UA 0.2 0.1-1.0 N Urobilinogen) [facility]aXgpubwwJQZISUZKPJ3246-13-57 15:30:00 Test Item Value Reference Range Interpretation Comments UA Blood (test code = Negative (09/18/2011 N UA Blood) 10:30:00) [facility]aSxfaqstXKZIGJJKIQ2995-31-15 15:30:00 Test Item Value Reference Range Interpretation Comments UA Bili (test code = Negative *NA*(09/18/2011 UA Bili) 10:30:00) [facility]andIvahznmXXHCZSLFBL7517-97-62 15:30:00 Test Item Value Reference Range Interpretation Comments UA Leuk Est (test Negative (09/18/2011 N code = UA Leuk Est) 10:30:00) [facility]andIhzmmypTSUAGSPTKQ1684-30-44 15:30:00 Test Item Value Reference Range Interpretation Comments UA Nitrite (test code Negative (09/18/2011 N = UA Nitrite) 10:30:00) [facility]andQnquyyxDCDDZALEXG6714-44-75 15:30:00 Test Item Value Reference Range Interpretation Comments UA pH (test code = UA pH) 7.5 1 5.0-8.0 N [facility]andJyknzbjKBXDWQIEAF7987-51-03 15:30:00 Test Item Value Reference Range Interpretation Comments UA Spec Grav (test code = UA Spec 1.010 1 N Grav) [facility] HospitalXoclqmtMICXUUOUIB4532-88-49 15:30:00 Test Item Value Reference Range Interpretation Comments UA Turbidity (test code Slight Cloudy N = UA Turbidity) (09/18/2011 10:30:00) [facility] HospitalQojmtxpRFVGOWAYEC4609-22-80 15:30:00 Test Item Value Reference Range Interpretation Comments UA Color (test code = Yellow *NA*(09/18/2011 UA Color) 10:30:00) [facility] HospitalLqixhoyXDNRMRNEC3107-55-25 14:07:00 Test Item Value Reference Range Interpretation Comments Phosphorus (test code = Phosphorus) 4.4 2.5-4.5 N [facility] HospitalDkssyhmEMVAVRZPU2056-08-12 14:07:00 Test Item Value Reference Range Interpretation Comments Magnesium Lvl (test code = Magnesium 1.6 1.8-2.4 L Lvl) [facility] GLUCOSE VJSOHFD9598-74-17 14:01:00 Test Item Value Reference Range Interpretation Comments Gluc POC Lifscn (test code = Gluc POC no gt 70-99 A Lifscn) [facility] HospitalKckciqgAYHBOZJDQ1675-38-70 13:52:00 Test Item Value Reference Range Interpretation Comments pO2 Roberth (test code = pO2 Roberth) 24 20-49 N [facility] HospitalBcphaysIESWZOZFT6270-62-24 13:52:00 Test Item Value Reference Range Interpretation Comments HCO3 Roberth (test code = HCO3 Roberth) 32.0 22.0-26.0 H [facility] HospitalEsdhqzrQSCMDBQSS5905-76-73 13:52:00 Test Item Value Reference Range Interpretation Comments pCO2 Roberth (test code = pCO2 Roberth) 44 38-52 N [facility] HospitalFlkdipnMLPIHHRMB3045-03-91 13:52:00 Test Item Value Reference Range Interpretation Comments BE Roberth (test code = 7 See_Comment H [Automa rohit message] The BE Roberth) system which ge nerated this result transmit rohit reference range : <=2. The reference range was not used to interpr et this result as reji l/abnormal. [facility] HospitalQmsvkvyBUCMBGPGS5030-05-74 13:52:00 Test Item Value Reference Range Interpretation Comments O2 Sat Roberth (test code = O2 Sat Roberth) 48.0 40.0-70.0 N [facility] HospitalEdipqxyKOYISOYVC0967-85-80 13:52:00 Test Item Value Reference Range Interpretation Comments Temp Roberth (test code = Temp Roberth) 37.0 [facility] HospitalPnqxjyqZZDUNVVSB9199-61-34 13:52:00 Test Item Value Reference Range Interpretation Comments pH Roberth (test code = pH Roberth) 7.47 7.28-7.42 H [facility] HospitalSugojujCPZGVVCGH3910-64-80 13:52:00 Test Item Value Reference Range Interpretation Comments Calcium Lvl (test code = Calcium Lvl) 10.1 8.5-10.5 N [facility] HospitalHriyiedMDABZMQDO8469-66-64 13:52:00 Test Item Value Reference Range Interpretation Comments Chloride Lvl (test code = Chloride Lvl) 92 95-109 L [facility] HospitalQitquhpEFYBHLYUH1045-04-05 13:52:00 Test Item Value Reference Range Interpretation Comments CO2 (test code = CO2) 30 24-32 N [facility] HospitalGfvldwsQKHOCXBLF1875-62-44 13:52:00 Test Item Value Reference Range Interpretation Comments Potassium Lvl (test code = Potassium 3.5 3.5-5.1 N Lvl) [facility] HospitalCcmshpkKXZHKSEPD2594-86-86 13:52:00 Test Item Value Reference Range Interpretation Comments Sodium Lvl (test code = Sodium Lvl) 133 135-145 L [facility] HospitalPwevswaEHZXUNYQC8023-13-42 13:52:00 Test Item Value Reference Range Interpretation Comments Creatinine Lvl (test code = Creatinine 1.3 0.5-1.4 N Lvl) [facility] HospitalJykugpmVXFICOGAI4571-15-42 13:52:00 Test Item Value Reference Range Interpretation Comments Glucose Lvl (test code = Glucose Lvl) 383 70-99 H [facility] HospitalBbiqeacYLZUYYYDS1769-86-84 13:52:00 Test Item Value Reference Range Interpretation Comments BUN (test code = BUN) 17 7-22 N [facility] HospitalIyhynvdREGHZEYMS8925-42-97 13:52:00 Test Item Value Reference Range Interpretation Comments AGAP (test code = AGAP) 14.5 10.0-20.0 N [facility] HospitalCpqigaeXJQLDGEQIA7860-06-35 13:52:00 Test Item Value Reference Range Interpretation Comments MPV (test code = MPV) 12.0 7.4-10.4 H [facility] HospitalQfpdwkmGIYYXJVVEC2276-17-31 13:52:00 Test Item Value Reference Range Interpretation Comments Platelet (test code = Platelet) 226 133-450 N [facility] HospitalNpewbxqFENMVCQSYT4944-57-54 13:52:00 Test Item Value Reference Range Interpretation Comments MCHC (test code = MCHC) 33.7 32.0-36.0 N [facility] HospitalYwtnhknSWCVVXZCBJ3185-99-24 13:52:00 Test Item Value Reference Range Interpretation Comments MCH (test code = MCH) 28.5 pg 27.0-31.0 N [facility] HospitalUbhibjeLPJVLKWVRC2319-72-53 13:52:00 Test Item Value Reference Range Interpretation Comments RDW (test code = RDW) 15.1 11.5-14.5 H [facility] HospitalOkuenupETZDSPGYQW7179-45-01 13:52:00 Test Item Value Reference Range Interpretation Comments MCV (test code = MCV) 84.6 81.0-99.0 N [facility] HospitalGvmdexgPEFBQCEQDQ4283-65-64 13:52:00 Test Item Value Reference Range Interpretation Comments Hct (test code = Hct) 36.4 36.0-48.0 N [facility] HospitalWogeqwvHHOJCMBGVN3148-56-32 13:52:00 Test Item Value Reference Range Interpretation Comments Hgb (test code = Hgb) 12.3 12.0-16.0 N [facility] HospitalIuwhffjYXNGNOOJSA7298-57-94 13:52:00 Test Item Value Reference Range Interpretation Comments RBC (test code = RBC) 4.30 4.20-5.40 N [facility] HospitalYbuelzeSGNGITKFMG9733-36-41 13:52:00 Test Item Value Reference Range Interpretation Comments WBC (test code = WBC) 11.7 3.7-10.4 H [facility] HospitalAzpppvqXIDZLLOHTI3208-12-86 13:52:00 Test Item Value Reference Range Interpretation Comments Monocytes (test code = Monocytes) 2.9 2.0-12.0 N [facility] HospitalBvzcmouZKJNRGVFCX5759-58-11 13:52:00 Test Item Value Reference Range Interpretation Comments Eosinophils (test code = 0.2 See_Comment N [A utomated message] The Eosinophils) system which ge nerated this result tra nsmitted reference range : <=4.0. The reference r leo was not used to int erpret this result as normal/abnormal . [facility] HospitalMkwvewgCSEJGNBROM7436-49-74 13:52:00 Test Item Value Reference Range Interpretation Comments Basophils (test code = 0.0 See_Comment N [Aut omated message] The Basophils) system which ge nerated this result tra nsmitted reference range : <=1.0. The reference r leo was not used to int erpret this result as normal/abnormal . [facility] HospitalWmaupdxGQAVATBUVY4724-19-75 13:52:00 Test Item Value Reference Range Interpretation Comments Eosinophils # (test code 0.0 See_Comment N [A utomated message] The = Eosinophils #) system whic h generated this result tra nsmitted reference range : <=0.5. The reference r leo was not used to int erpret this result as normal/abnormal . [facility] HospitalGyojzfcIDJWGOTBXJ1004-34-55 13:52:00 Test Item Value Reference Range Interpretation Comments Monocytes # (test code 0.3 See_Comment N [Aut omated message] The = Monocytes #) system which generated this result tra nsmitted reference range : <=0.8. The reference r leo was not used to int erpret this result as normal/abnormal . [facility] HospitalRzgsacfWRMLCYBQPE5055-20-97 13:52:00 Test Item Value Reference Range Interpretation Comments Segs (test code = Segs) 92.0 45.0-75.0 H [facility] HospitalVcdzqqiEQYHZJSEPC8693-62-29 13:52:00 Test Item Value Reference Range Interpretation Comments Lymphocytes (test code = Lymphocytes) 4.9 20.0-40.0 L [facility] HospitalLrywnvoLEQENQCRUU5589-04-23 13:52:00 Test Item Value Reference Range Interpretation Comments Spherocyte (test code = Rare A Spherocyte) *ABN*(09/18/2011 08:52:00) [facility]ZxyvjzaMQLPYPFBIM7255-48-76 13:52:00 Test Item Value Reference Range Interpretation Comments Large Plt (test code = Slight *ABN*(09/18/2011 A Large Plt) 08:52:00) [facility] HospitalKiwgzcbSEPTJDVORA5416-35-81 13:52:00 Test Item Value Reference Range Interpretation Comments Microcyte (test code = 1+ *ABN*(09/18/2011 A Microcyte) 08:52:00) [facility] HospitalYecusawVXQFTHLUJY1090-21-31 13:52:00 Test Item Value Reference Range Interpretation Comments Schistocyte (test code = Schistocyte) Rare [facility] HospitalLjbwxuuKOFHNAYMIG6974-38-56 13:52:00 Test Item Value Reference Range Interpretation Comments Macrocyte (test code = 1+ *ABN*(09/18/2011 A Macrocyte) 08:52:00) [facility] HospitalHgcwbknRHCHANWJZI5068-24-99 13:52:00 Test Item Value Reference Range Interpretation Comments Lymphocytes # (test code = Lymphocytes 0.6 1.0-5.5 L #) [facility] HospitalQsntzksKZMHPETHCQ7301-03-36 13:52:00 Test Item Value Reference Range Interpretation Comments Segs-Bands # (test code = Segs-Bands #) 10.8 1.5-8.1 H [facility] HospitalRtcxveiAMKAZRAROX9458-75-87 13:52:00 Test Item Value Reference Range Interpretation Comments Basophils # (test code 0.0 See_Comment N [Aut omated message] The = Basophils #) system which generated this result tra nsmitted reference range : <=0.2. The reference r leo was not used to int erpret this result as normal/abnormal . [facility] HospitalYbvtezeANTQJSCJMX2207-39-12 13:52:00 Test Item Value Reference Range Interpretation Comments Anisocyte (test code = 1+ *ABN*(09/18/2011 A Anisocyte) 08:52:00) [facility]IzcljoiFJYHXQCMWF6799-85-63 13:52:00 Test Item Value Reference Range Interpretation Comments CDC-HIV 1/2 Ab (test Negative *NA*(09/18/2011 code = CDC-HIV 1/2 08:52:00) Ab) [facility] GLUCOSE HITCPAL3601-51-39 17:34:00 Test Item Value Reference Range Interpretation Comments Gluc POC Lifscn (test code = Gluc POC 215 70-99 H Lifscn) [facility] GLUCOSE VKTPWRI2620-00-34 17:34:00 Test Item Value Reference Range Interpretation Comments Comment1 (test code = Comment1) Notify RN/ [facility] GLUCOSE WNQOCBG0397-44-85 11:43:00 Test Item Value Reference Range Interpretation Comments Comment1 (test code = Comment1) Notify RN/MD [facility] GLUCOSE UJGBYUJ9998-24-90 11:43:00 Test Item Value Reference Range Interpretation Comments Gluc POC Lifscn (test code = Gluc POC 91 65-110 N Lifscn) [facility] GLUCOSE YSCTBJA1900-32-85 02:45:00 Test Item Value Reference Range Interpretation Comments Comment1 (test code = Comment1) Notify RN/ [facility] GLUCOSE GGHJSSN6715-77-96 02:45:00 Test Item Value Reference Range Interpretation Comments Gluc POC Lifscn (test code = Gluc POC 148 65-110 H Lifscn) [facility] HospitalLokiaifCGEFMXTDH8322-58-53 08:47:00 Test Item Value Reference Range Interpretation Comments Sodium Lvl (test code = Sodium Lvl) 143 135-145 N [facility] HospitalJwlepxuENKAGGRQW2683-29-77 08:47:00 Test Item Value Reference Range Interpretation Comments Glucose Lvl (test code = Glucose Lvl) 105 [facility] HospitalAsasigfKKDSSLELT6682-37-51 08:47:00 Test Item Value Reference Range Interpretation Comments CO2 (test code = CO2) 29 24-32 N [facility] HospitalCumswwnHXSMPJVCD8823-59-38 08:47:00 Test Item Value Reference Range Interpretation Comments Chloride Lvl (test code = Chloride Lvl) 103 95-109 N [facility] HospitalEjirxbyPSUQQUUYI1758-15-19 08:47:00 Test Item Value Reference Range Interpretation Comments BUN (test code = BUN) 10 7-22 N [facility] HospitalWmsifwrSRUNBHAYO5409-42-05 08:47:00 Test Item Value Reference Range Interpretation Comments Potassium Lvl (test code = Potassium 3.8 3.5-5.1 N Lvl) [facility] HospitalKxnxdsuJIFNBHCFO5435-48-86 08:47:00 Test Item Value Reference Range Interpretation Comments Creatinine Lvl (test code = Creatinine 0.6 0.5-1.4 N Lvl) [facility] HospitalGcyygepBIGAVHQIZ2472-35-26 08:47:00 Test Item Value Reference Range Interpretation Comments Calcium Lvl (test code = Calcium Lvl) 8.5 8.5-10.5 N [facility] HospitalVvdbffjTQYFNJGBE7201-90-57 08:47:00 Test Item Value Reference Range Interpretation Comments AGAP (test code = AGAP) 14.8 10.0-20.0 N [facility] HospitalUazbavmCJGBSILGAT6578-27-30 08:47:00 Test Item Value Reference Range Interpretation Comments MCH (test code = MCH) 28.9 pg 27.0-31.0 N [facility] HospitalZhxrriaKRSVTNJBRX7071-44-76 08:47:00 Test Item Value Reference Range Interpretation Comments MCV (test code = MCV) 82.1 81.0-99.0 N [facility] HospitalLoyyurbNKUGNHKQKH5220-54-18 08:47:00 Test Item Value Reference Range Interpretation Comments Hct (test code = Hct) 25.9 36.0-48.0 L [facility] HospitalVeacxgqWMVGFLTCGK3223-45-57 08:47:00 Test Item Value Reference Range Interpretation Comments Platelet (test code = Platelet) 233 133-450 N [facility] HospitalBoyshtuMFXSDLZWVM0148-42-88 08:47:00 Test Item Value Reference Range Interpretation Comments RDW (test code = RDW) 14.5 11.5-14.5 N [facility] HospitalWpyzdgrRBWMJOAKGK2106-21-31 08:47:00 Test Item Value Reference Range Interpretation Comments MCHC (test code = MCHC) 35.2 32.0-36.0 N [facility] HospitalPffpwcfFNTDPFEWNK7514-71-37 08:47:00 Test Item Value Reference Range Interpretation Comments Hgb (test code = Hgb) 9.1 12.0-16.0 L [facility] HospitalKbelcxhVXFUJJUAIJ5772-24-95 08:47:00 Test Item Value Reference Range Interpretation Comments RBC (test code = RBC) 3.15 4.20-5.40 L [facility] HospitalCfphqejYMVPXWXOCN0111-69-86 08:47:00 Test Item Value Reference Range Interpretation Comments MPV (test code = MPV) 9.0 7.4-10.4 N [facility] HospitalCprjtaxXLBEQOCJCJ7493-25-59 08:47:00 Test Item Value Reference Range Interpretation Comments WBC (test code = WBC) 6.3 3.7-10.4 N [facility] HospitalSvqqnxcAIEHQNNMLQ1179-49-31 08:47:00 Test Item Value Reference Range Interpretation Comments Eosinophils # (test code 0.0 See_Comment N [A utomated message] The = Eosinophils #) system whic h generated this result tra nsmitted reference range : <=0.5. The reference r leo was not used to int erpret this result as normal/abnormal . [facility] HospitalKeytmcuOKBHUCYKGC3190-24-70 08:47:00 Test Item Value Reference Range Interpretation Comments Basophils # (test code 0.0 See_Comment N [Aut omated message] The = Basophils #) system which generated this result tra nsmitted reference range : <=0.2. The reference r leo was not used to int erpret this result as normal/abnormal . [facility] HospitalBjnwoccTXRDOKDRMU5761-46-54 08:47:00 Test Item Value Reference Range Interpretation Comments Segs-Bands # (test code = Segs-Bands #) 3.8 1.5-8.1 N [facility] HospitalGuvcxcwMTKXNCFLOA5627-09-03 08:47:00 Test Item Value Reference Range Interpretation Comments Lymphocytes # (test code = Lymphocytes 2.0 1.0-5.5 N #) [facility] HospitalBowhjeaJAFLDYPIOS5250-02-86 08:47:00 Test Item Value Reference Range Interpretation Comments Basophils (test code = 0.5 See_Comment N [Aut omated message] The Basophils) system which ge nerated this result tra nsmitted reference range : <=1.0. The reference r leo was not used to int erpret this result as normal/abnormal . [facility] HospitalLkovpzoMKQZXDJXTP8463-56-27 08:47:00 Test Item Value Reference Range Interpretation Comments Eosinophils (test code = 0.7 See_Comment N [A utomated message] The Eosinophils) system which ge nerated this result tra nsmitted reference range : <=4.0. The reference r leo was not used to int erpret this result as normal/abnormal . [facility] HospitalHbgoavmLMXUBIGRFH5119-81-83 08:47:00 Test Item Value Reference Range Interpretation Comments Monocytes (test code = Monocytes) 6.2 2.0-12.0 N [facility] HospitalXpgihedAXQIZAYLYK2793-75-57 08:47:00 Test Item Value Reference Range Interpretation Comments Segs (test code = Segs) 61.1 45.0-75.0 N [facility] HospitalPpbyqltOVAQFKIRDY7833-80-08 08:47:00 Test Item Value Reference Range Interpretation Comments Lymphocytes (test code = Lymphocytes) 31.5 20.0-40.0 N [facility] HospitalBbcazkxMDDVDRBGNP1552-59-08 08:47:00 Test Item Value Reference Range Interpretation Comments Monocytes # (test code 0.4 See_Comment N [Aut omated message] The = Monocytes #) system which generated this result tra nsmitted reference range : <=0.8. The reference r leo was not used to int erpret this result as normal/abnormal . [facility] HospitalUesejjzSWUTXQNCW6125-57-37 10:54:00 Test Item Value Reference Range Interpretation Comments CO2 (test code = CO2) 27 24-32 N [facility] HospitalVvsabrbJQWYRYAQU8271-99-65 10:54:00 Test Item Value Reference Range Interpretation Comments Chloride Lvl (test code = Chloride Lvl) 104 95-109 N [facility] HospitalJpyieyuSVOMORGFS9241-85-44 10:54:00 Test Item Value Reference Range Interpretation Comments Creatinine Lvl (test code = Creatinine 0.5 0.5-1.4 N Lvl) [facility] HospitalVponzzrZOILOUVVG4913-26-67 10:54:00 Test Item Value Reference Range Interpretation Comments BUN (test code = BUN) 10 7-22 N [facility] HospitalVgwmlnaOJEIHKRVO8638-23-10 10:54:00 Test Item Value Reference Range Interpretation Comments Potassium Lvl (test code = Potassium 4.1 3.5-5.1 N Lvl) [facility] HospitalHydovqsLLLCGRRKW3407-89-51 10:54:00 Test Item Value Reference Range Interpretation Comments Sodium Lvl (test code = Sodium Lvl) 141 135-145 N [facility] HospitalErblkmeAAHEPVPZQ4036-21-21 10:54:00 Test Item Value Reference Range Interpretation Comments Glucose Lvl (test code = Glucose Lvl) 83 [facility] HospitalHglawkpFBKWZMVVN5362-28-51 10:54:00 Test Item Value Reference Range Interpretation Comments Calcium Lvl (test code = Calcium Lvl) 8.4 8.5-10.5 L [facility] HospitalCttkgbmRGNGRWDRA6093-95-50 10:54:00 Test Item Value Reference Range Interpretation Comments AGAP (test code = AGAP) 14.1 10.0-20.0 N [facility] HospitalOactwskNBHAFCHZTG0018-00-51 10:54:00 Test Item Value Reference Range Interpretation Comments Hct (test code = Hct) 35.5 36.0-48.0 L [facility] HospitalDidjaedUIXRPMPWEV0859-81-78 10:54:00 Test Item Value Reference Range Interpretation Comments WBC (test code = WBC) 4.7 3.7-10.4 N [facility] HospitalTqzvpgaFNVFYBNWWO5727-78-11 10:54:00 Test Item Value Reference Range Interpretation Comments MCV (test code = MCV) 92.6 81.0-99.0 N [facility] HospitalTqzjjyjZDXVJHHATA8704-77-44 10:54:00 Test Item Value Reference Range Interpretation Comments MCH (test code = MCH) 31.4 pg 27.0-31.0 H [facility]CkmglpjZZJPQTTNOI5089-37-25 10:54:00 Test Item Value Reference Range Interpretation Comments RBC (test code = RBC) 3.84 4.20-5.40 L [facility] HospitalJojxbxoYCYGFRLSMZ3320-29-09 10:54:00 Test Item Value Reference Range Interpretation Comments Hgb (test code = Hgb) 12.1 12.0-16.0 N [facility] HospitalFgojhumYZWSQVVTUV3836-11-17 10:54:00 Test Item Value Reference Range Interpretation Comments Platelet (test code = Platelet) 287 133-450 N [facility] HospitalXglmnpeIWWRQLASEC0925-48-45 10:54:00 Test Item Value Reference Range Interpretation Comments RDW (test code = RDW) 12.7 11.5-14.5 N [facility] HospitalZkafiqhYCJLRSDGHC8487-59-58 10:54:00 Test Item Value Reference Range Interpretation Comments MCHC (test code = MCHC) 33.9 32.0-36.0 N [facility] HospitalTlmyptjNONCMCFAXB7882-32-27 10:54:00 Test Item Value Reference Range Interpretation Comments MPV (test code = MPV) 7.2 7.4-10.4 L [facility] HospitalKnrdatuSOGUEWFHTB2276-99-17 10:54:00 Test Item Value Reference Range Interpretation Comments INR (test code = INR) 0.95 0.85-1.17 N [facility] HospitalUbsqufkEYRQVEPFKI7513-93-04 10:54:00 Test Item Value Reference Range Interpretation Comments PT (test code = PT) 12.7 s 12.0-14.7 N [facility] HospitalRugktxwBCRAAHRPSC7912-12-43 10:54:00 Test Item Value Reference Range Interpretation Comments PTT (test code = PTT) 28.5 s 22.9-35.8 N [facility] HospitalAvjwpefYAOCHYFWHM7955-34-67 10:54:00 Test Item Value Reference Range Interpretation Comments Eosinophils # (test code 0.1 See_Comment N [A utomated message] The = Eosinophils #) system whic h generated this result tra nsmitted reference range : <=0.5. The reference r leo was not used to int erpret this result as normal/abnormal . [facility] HospitalZmhveleCDQBAVPLIV0535-24-90 10:54:00 Test Item Value Reference Range Interpretation Comments Basophils # (test code 0.0 See_Comment N [Aut omated message] The = Basophils #) system which generated this result tra nsmitted reference range : <=0.2. The reference r leo was not used to int erpret this result as normal/abnormal . [facility] HospitalReqwcufERBFJDXFZP4164-36-72 10:54:00 Test Item Value Reference Range Interpretation Comments Basophils (test code = 0.4 See_Comment N [Aut omated message] The Basophils) system which ge nerated this result tra nsmitted reference range : <=1.0. The reference r leo was not used to int erpret this result as normal/abnormal . [facility] HospitalPwnwtpsJYYMKLQYMQ3894-50-28 10:54:00 Test Item Value Reference Range Interpretation Comments Segs-Bands # (test code = Segs-Bands #) 2.1 1.5-8.1 N [facility] HospitalGfmocsyRFUWDZBBOB4818-65-82 10:54:00 Test Item Value Reference Range Interpretation Comments Monocytes (test code = Monocytes) 9.0 2.0-12.0 N [facility] HospitalFxwyzjzLCWBEPMFGJ1802-19-22 10:54:00 Test Item Value Reference Range Interpretation Comments Eosinophils (test code = 2.4 See_Comment N [A utomated message] The Eosinophils) system which ge nerated this result tra nsmitted reference range : <=4.0. The reference r leo was not used to int erpret this result as normal/abnormal . [facility] HospitalBcxbwioELBBISPREZ8997-48-84 10:54:00 Test Item Value Reference Range Interpretation Comments Monocytes # (test code 0.4 See_Comment N [Aut omated message] The = Monocytes #) system which generated this result tra nsmitted reference range : <=0.8. The reference r leo was not used to int erpret this result as normal/abnormal . [facility] HospitalJukfzgiNLAJNVUSRI5024-39-31 10:54:00 Test Item Value Reference Range Interpretation Comments Lymphocytes # (test code = Lymphocytes 2.0 1.0-5.5 N #) [facility] HospitalWvivchsOIRUXASDBJ4313-82-41 10:54:00 Test Item Value Reference Range Interpretation Comments Lymphocytes (test code = Lymphocytes) 42.8 20.0-40.0 H [facility] HospitalJtaemycHKAQYAXHYH9030-62-14 10:54:00 Test Item Value Reference Range Interpretation Comments Segs (test code = Segs) 45.4 45.0-75.0 N [facility]WswdmkzPTYNHXPOM0038-53-33 10:02:00 Test Item Value Reference Range Interpretation Comments Chloride Lvl (test code = Chloride Lvl) 105 95-109 N [facility] HospitalYeugzanTMTKKKTCS8563-93-17 10:02:00 Test Item Value Reference Range Interpretation Comments Potassium Lvl (test code = Potassium 4.1 3.5-5.1 N Lvl) [facility] HospitalHxhhpzsWSLGJQQVD2029-05-95 10:02:00 Test Item Value Reference Range Interpretation Comments Sodium Lvl (test code = Sodium Lvl) 143 135-145 N [facility] HospitalJgfdhksXGUXWXRPW0424-77-34 10:02:00 Test Item Value Reference Range Interpretation Comments CO2 (test code = CO2) 29 24-32 N [facility] HospitalOunuqnbRWWFJIEEM0080-27-12 10:02:00 Test Item Value Reference Range Interpretation Comments Calcium Lvl (test code = Calcium Lvl) 8.7 8.5-10.5 N [facility] HospitalCxvhnxkJIJIKMDIN2677-22-94 10:02:00 Test Item Value Reference Range Interpretation Comments BUN (test code = BUN) 6 7-22 L [facility] HospitalIkqftmgWWRLJFOCN3217-75-19 10:02:00 Test Item Value Reference Range Interpretation Comments Creatinine Lvl (test code = Creatinine 0.6 0.5-1.4 N Lvl) [facility] HospitalXwaukrhZVQYWNMRW8874-06-04 10:02:00 Test Item Value Reference Range Interpretation Comments Glucose Lvl (test code = Glucose Lvl) 118 [facility] HospitalJsqcojuTAKSTEJFN2279-74-28 10:02:00 Test Item Value Reference Range Interpretation Comments AGAP (test code = AGAP) 13.1 10.0-20.0 N [facility] HospitalDsmdfdpXZDAEJHNHC9873-78-87 10:02:00 Test Item Value Reference Range Interpretation Comments Basophils # (test code 0.0 See_Comment N [Aut omated message] The = Basophils #) system which generated this result tra nsmitted reference range : <=0.2. The reference r leo was not used to int erpret this result as normal/abnormal . [facility] HospitalYsqbtztNHGXZMLYND1203-88-68 10:02:00 Test Item Value Reference Range Interpretation Comments Monocytes # (test code 0.3 See_Comment N [Aut omated message] The = Monocytes #) system which generated this result tra nsmitted reference range : <=0.8. The reference r leo was not used to int erpret this result as normal/abnormal . [facility] HospitalPqyfoimHEINBEHIOV3990-12-42 10:02:00 Test Item Value Reference Range Interpretation Comments Eosinophils # (test code 0.1 See_Comment N [A utomated message] The = Eosinophils #) system whic h generated this result tra nsmitted reference range : <=0.5. The reference r leo was not used to int erpret this result as normal/abnormal . [facility] HospitalIsfedacLUJUPMLIVZ9568-00-08 10:02:00 Test Item Value Reference Range Interpretation Comments Segs-Bands # (test code = Segs-Bands #) 2.8 1.5-8.1 N [facility] HospitalRvzztcmLAHESPGCFB5677-18-59 10:02:00 Test Item Value Reference Range Interpretation Comments Lymphocytes # (test code = Lymphocytes 1.7 1.0-5.5 N #) [facility] HospitalNgkllvzOVHKCXTILE3312-52-87 10:02:00 Test Item Value Reference Range Interpretation Comments Basophils (test code = 0.6 See_Comment N [Aut omated message] The Basophils) system which ge nerated this result tra nsmitted reference range : <=1.0. The reference r leo was not used to int erpret this result as normal/abnormal . [facility] HospitalBtlrmhiQGXSTBZYQI8811-49-55 10:02:00 Test Item Value Reference Range Interpretation Comments Monocytes (test code = Monocytes) 6.9 2.0-12.0 N [facility] HospitalYspwbeaHFDGAANXRY0715-12-56 10:02:00 Test Item Value Reference Range Interpretation Comments Eosinophils (test code = 2.0 See_Comment N [A utomated message] The Eosinophils) system which ge nerated this result tra nsmitted reference range : <=4.0. The reference r leo was not used to int erpret this result as normal/abnormal . [facility] HospitalGgbqkkjKDDSQCHIDE3155-13-02 10:02:00 Test Item Value Reference Range Interpretation Comments Segs (test code = Segs) 55.8 45.0-75.0 N [facility] HospitalRwfghlbCMQNOWZUPF9130-41-88 10:02:00 Test Item Value Reference Range Interpretation Comments Lymphocytes (test code = Lymphocytes) 34.7 20.0-40.0 N [facility] HospitalGcgmougTBIJZTLVTB3978-84-77 10:02:00 Test Item Value Reference Range Interpretation Comments PTT (test code = PTT) 32.2 s 22.9-35.8 N [facility] HospitalMdbwhjnKTEYCOVEQF9210-16-33 10:02:00 Test Item Value Reference Range Interpretation Comments PT (test code = PT) 13.3 s 12.0-14.7 N [facility] HospitalRnqmgrrOZPEOSIFSO8118-99-76 10:02:00 Test Item Value Reference Range Interpretation Comments INR (test code = INR) 1.01 0.85-1.17 N [facility] HospitalFiwmforPYBTSYPDJV7854-72-01 10:02:00 Test Item Value Reference Range Interpretation Comments Hct (test code = Hct) 27.5 36.0-48.0 L [facility] HospitalYzxkkozBOITJGGPGU0300-26-78 10:02:00 Test Item Value Reference Range Interpretation Comments RBC (test code = RBC) 3.34 4.20-5.40 L [facility] HospitalUcvecvvRWPSBDJUBQ8009-67-25 10:02:00 Test Item Value Reference Range Interpretation Comments Hgb (test code = Hgb) 9.7 12.0-16.0 L [facility] HospitalNfsahujPJXXPQKFMU8929-50-47 10:02:00 Test Item Value Reference Range Interpretation Comments WBC (test code = WBC) 5.0 3.7-10.4 N [facility] HospitalFbdqeemNUURTCHVHA7370-63-73 10:02:00 Test Item Value Reference Range Interpretation Comments MPV (test code = MPV) 9.2 7.4-10.4 N [facility] HospitalYgicggpLCAYXTQHOQ7542-16-73 10:02:00 Test Item Value Reference Range Interpretation Comments Platelet (test code = Platelet) 240 133-450 N [facility] HospitalYzqanuoSIDQLDUDMA4539-33-05 10:02:00 Test Item Value Reference Range Interpretation Comments RDW (test code = RDW) 14.3 11.5-14.5 N [facility] HospitalBjpeejaIOMGCJFVCI3602-21-32 10:02:00 Test Item Value Reference Range Interpretation Comments MCHC (test code = MCHC) 35.2 32.0-36.0 N [facility] HospitalGlmqzewTUBLNVCSYH9543-91-30 10:02:00 Test Item Value Reference Range Interpretation Comments MCH (test code = MCH) 28.9 pg 27.0-31.0 N [facility] HospitalPccrikgCAJHNHWDCZ4271-93-13 10:02:00 Test Item Value Reference Range Interpretation Comments MCV (test code = MCV) 82.1 81.0-99.0 N [facility] HospitalXuztcxrDBMAQFSGQ3675-95-55 09:24:00 Test Item Value Reference Range Interpretation Comments Magnesium Lvl (test code = Magnesium 2.1 1.8-2.4 N Lvl) [facility]LyfjudlDpjozbteoror3738-97-87 00:32:00 Test Item Value Reference Range Interpretation Comments Culture: Aspirate/Body Fluid/Tissue (test code = Culture: Aspirate/Body Fluid/Tissue) [facility] TempleCmdcqnvEikqwaighmjn4556-96-63 00:32:00 Test Item Value Reference Range Interpretation Comments Culture: Anaerobic (test code = Culture: Anaerobic) [facility] HospitalUcknozvYQYCZAVPV7356-58-03 17:10:00 Test Item Value Reference Range Interpretation Comments Temp Roberth (test code = Temp Roberth) 37.0 [facility] HospitalQyjekpjCPIZOEJMR1581-85-41 17:10:00 Test Item Value Reference Range Interpretation Comments O2 Sat Roberth (test code = O2 Sat Roberth) 27.0 40.0-70.0 L [facility] HospitalNezwfqvDOBJKOSIU6569-69-35 17:10:00 Test Item Value Reference Range Interpretation Comments pCO2 Roberth (test code = pCO2 Roberth) 47 38-52 N [facility] HospitalQtquijzLSXUIQTQG5445-88-18 17:10:00 Test Item Value Reference Range Interpretation Comments pH Roberth (test code = pH Roberth) 7.37 7.28-7.42 N [facility] HospitalXzwhfijPOOPLPFXR2058-19-25 17:10:00 Test Item Value Reference Range Interpretation Comments BE Roberth (test code = 1 See_Comment N [Automa rohit message] The BE Roberth) system which ge nerated this result transmit rohit reference range : <=2. The reference range was not used to interpr et this result as reji l/abnormal. [facility] HospitalQcmedmeAULEPIJEF8617-04-98 17:10:00 Test Item Value Reference Range Interpretation Comments HCO3 Roberth (test code = HCO3 Roberth) 27.2 22.0-26.0 H [facility] HospitalHodgaynQOYKGSVRI6166-52-93 17:10:00 Test Item Value Reference Range Interpretation Comments pO2 Roberth (test code = pO2 Roberth) 19 20-49 L [facility] TempleSjacldiEounmkqzrixe7555-30-11 14:18:00 Test Item Value Reference Range Interpretation Comments Culture: Blood (test code = Culture: Blood) [facility] TempleBpvsmplDsouaxsksrie9796-12-67 14:18:00 Test Item Value Reference Range Interpretation Comments Culture: Wound/Abscess w/Gram Stain (test code = Culture: Wound/Abscess w/Gram Stain) [facility] HospitalKmlkbtxACRNMVBVE8954-68-02 13:09:00 Test Item Value Reference Range Interpretation Comments Lactic Acid Lvl (test code = Lactic 1.0 0.5-2.2 N Acid Lvl) [facility] HospitalOalnwfgUQDVLSDYB7179-61-38 12:20:00 Test Item Value Reference Range Interpretation Comments U Preg (test code = U Negative (09/01/2011 N Preg) 07:20:00) [facility]pcbhhhSFAWFHKSIT8719-43-79 12:20:00 Test Item Value Reference Range Interpretation Comments UA Sq Epi (test code Occasional /LPF N = UA Sq Epi) (09/01/2011 07:20:00) [facility]andDwtfpidKHNCKHACNR2718-49-13 12:20:00 Test Item Value Reference Range Interpretation Comments UA Leuk Est (test Negative (09/01/2011 N code = UA Leuk Est) 07:20:00) [facility]andNlcivtsHQLHFTNPIG9579-89-28 12:20:00 Test Item Value Reference Range Interpretation Comments UA Nitrite (test code Negative (09/01/2011 N = UA Nitrite) 07:20:00) [facility]andQpdrewhXCDEEOAZBF2313-11-35 12:20:00 Test Item Value Reference Range Interpretation Comments UA Urobilinogen (test code = UA 0.2 0.1-1.0 N Urobilinogen) [facility]andUkjwnodMSDTQSHPLH7071-83-36 12:20:00 Test Item Value Reference Range Interpretation Comments UA Blood (test code = Negative (09/01/2011 N UA Blood) 07:20:00) [facility]YvsncbvCYYVCNYEUI6968-02-68 12:20:00 Test Item Value Reference Range Interpretation Comments UA Ketones (test code = >=80 mg/dL A UA Ketones) *ABN*(09/01/2011 07:20:00) [facility] HospitalGqhiolnATYVTIVHEW9695-74-96 12:20:00 Test Item Value Reference Range Interpretation Comments UA Protein (test code Negative (09/01/2011 N = UA Protein) 07:20:00) [facility] HospitalCwourgiHPNMVMTHOY0391-31-72 12:20:00 Test Item Value Reference Range Interpretation Comments UA pH (test code = UA pH) 6.0 1 5.0-8.0 N [facility] HospitalPaueogdEKCDTQWOLO7099-61-04 12:20:00 Test Item Value Reference Range Interpretation Comments UA Bili (test code = Negative (09/01/2011 N UA Bili) 07:20:00) [facility]andBbcsipvAMXBCKTCYV1330-74-74 12:20:00 Test Item Value Reference Range Interpretation Comments UA Glucose (test code = >=1000 mg/dL A UA Glucose) *ABN*(09/01/2011 07:20:00) [facility] HospitalOwqseukXXMVMRRCES3070-61-37 12:20:00 Test Item Value Reference Range Interpretation Comments UA Spec Grav (test code = UA Spec 1.035 1 H Grav) [facility]andFnvxpaeTMNXWRFZOO3806-88-61 12:20:00 Test Item Value Reference Range Interpretation Comments UA Turbidity (test code = Clear (09/01/2011 N UA Turbidity) 07:20:00) [facility] HospitalVecwtxcHRCHKGBPUT8135-23-33 12:20:00 Test Item Value Reference Range Interpretation Comments UA Color (test code = Yellow *NA*(09/01/2011 UA Color) 07:20:00) [facility]andRfrlvolRXQUTIDFI7691-37-71 08:00:00 Test Item Value Reference Range Interpretation Comments Lactic Acid Lvl (test code = Lactic 2.8 0.5-2.2 H Acid Lvl) [facility] HospitalBblfpvxFATFPEWCV3565-33-97 07:47:00 Test Item Value Reference Range Interpretation Comments Magnesium Lvl (test code = Magnesium 1.5 1.8-2.4 L Lvl) [facility] HospitalEzarqosVZOOHHIIDC9622-69-62 07:47:00 Test Item Value Reference Range Interpretation Comments Polychrom (test code = Slight (09/01/2011 N Polychrom) 02:47:00) [facility] HospitalZgqczrhTNIIZMGXMJ0780-89-61 07:47:00 Test Item Value Reference Range Interpretation Comments Anisocyte (test code = 1+ *ABN*(09/01/2011 A Anisocyte) 02:47:00) [facility] HospitalBnyignhDGQWURDUMY8616-12-58 07:47:00 Test Item Value Reference Range Interpretation Comments Large Plt (test code = Slight *ABN*(09/01/2011 A Large Plt) 02:47:00) [facility] HospitalFiverfaHZTXSVNJCS4135-94-85 07:47:00 Test Item Value Reference Range Interpretation Comments Tear Cell (test code = Tear Cell) Occasional [facility] HospitalPwszwppIZCSGTPZOQ0085-85-95 07:47:00 Test Item Value Reference Range Interpretation Comments Elliptocyte (test code = Slight A Elliptocyte) *ABN*(09/01/2011 02:47:00) [facility] GLUCOSE HWUKPVD9721-37-94 17:02:00 Test Item Value Reference Range Interpretation Comments Comment1 (test code = Comment1) Notify TABATHA/ [facility] GLUCOSE SRHXCSV2094-11-11 17:02:00 Test Item Value Reference Range Interpretation Comments Gluc POC Lifscn (test code = Gluc POC 134 65-110 H Lifscn) [facility] GLUCOSE CIWOOJH8025-42-70 13:45:00 Test Item Value Reference Range Interpretation Comments Gluc POC Lifscn (test code = Gluc POC 182 65-110 H Lifscn) [facility] GLUCOSE ZHICEOC9592-54-09 13:45:00 Test Item Value Reference Range Interpretation Comments Comment1 (test code = Comment1) Notify TABATHA/ [facility] HospitalYvhgzhwDMOBJCUII5506-39-20 10:22:00 Test Item Value Reference Range Interpretation Comments Phosphorus (test code = Phosphorus) 3.0 2.5-4.5 N [facility] HospitalKstcgsjFRTIWBRGH9397-27-49 10:22:00 Test Item Value Reference Range Interpretation Comments Magnesium Lvl (test code = Magnesium 1.8 1.8-2.4 N Lvl) [facility] HospitalDyirkuyQHHVXBLJX7138-01-25 10:22:00 Test Item Value Reference Range Interpretation Comments Chloride Lvl (test code = Chloride Lvl) 107 95-109 N [facility] HospitalWowddwpKJNNJYCSR1054-13-24 10:22:00 Test Item Value Reference Range Interpretation Comments Potassium Lvl (test code = Potassium 3.0 3.5-5.1 A Lvl) [facility] HospitalFnsgrhwELYDZRRRU7438-30-05 10:22:00 Test Item Value Reference Range Interpretation Comments Sodium Lvl (test code = Sodium Lvl) 141 135-145 N [facility] HospitalReezqxrVOVEMRQDF9500-49-66 10:22:00 Test Item Value Reference Range Interpretation Comments Creatinine Lvl (test code = Creatinine 0.6 0.5-1.4 N Lvl) [facility] HospitalVysmociDAEAEJNRN4026-04-69 10:22:00 Test Item Value Reference Range Interpretation Comments CO2 (test code = CO2) 23 24-32 L [facility] HospitalCuxtsenRHXFOKKHV9033-03-91 10:22:00 Test Item Value Reference Range Interpretation Comments Calcium Lvl (test code = Calcium Lvl) 7.3 8.5-10.5 L [facility] HospitalIqeumpdWSNVFYTXW9913-61-75 10:22:00 Test Item Value Reference Range Interpretation Comments Glucose Lvl (test code = Glucose Lvl) 136 [facility] HospitalMdumwgaFUTNFSPRR3785-15-60 10:22:00 Test Item Value Reference Range Interpretation Comments AGAP (test code = AGAP) 14.0 10.0-20.0 N [facility] HospitalWefmvlbBWQBRDENA8593-87-80 10:22:00 Test Item Value Reference Range Interpretation Comments BUN (test code = BUN) 5 7-22 L [facility] HospitalWrlchrhBBZFTZVYFD0598-69-77 10:22:00 Test Item Value Reference Range Interpretation Comments Segs (test code = Segs) 69.6 45.0-75.0 N [facility] HospitalCousifiGCRQBDCPAC1155-26-48 10:22:00 Test Item Value Reference Range Interpretation Comments Lymphocytes (test code = Lymphocytes) 21.5 20.0-40.0 N [facility] HospitalVnziygsTXFPPAGMEV4108-60-22 10:22:00 Test Item Value Reference Range Interpretation Comments Monocytes (test code = Monocytes) 7.6 2.0-12.0 N [facility] HospitalZvdzqpgMNIFPKESNM0215-70-95 10:22:00 Test Item Value Reference Range Interpretation Comments Eosinophils (test code = 1.0 See_Comment N [A utomated message] The Eosinophils) system which ge nerated this result tra nsmitted reference range : <=4.0. The reference r leo was not used to int erpret this result as normal/abnormal . [facility] HospitalMbaryjnLTSJBVCXJS6180-56-13 10:22:00 Test Item Value Reference Range Interpretation Comments Basophils (test code = 0.3 See_Comment N [Aut omated message] The Basophils) system which ge nerated this result tra nsmitted reference range : <=1.0. The reference r leo was not used to int erpret this result as normal/abnormal . [facility] HospitalKhirspuCJAURFERNH5300-22-73 10:22:00 Test Item Value Reference Range Interpretation Comments Segs-Bands # (test code = Segs-Bands #) 4.8 1.5-8.1 N [facility] HospitalUoutnhiJHKURXJSRK4473-50-62 10:22:00 Test Item Value Reference Range Interpretation Comments Eosinophils # (test code 0.1 See_Comment N [A utomated message] The = Eosinophils #) system [facility] h generated this result tra nsmitted reference range : <=0.5. The reference r leo was not used to int erpret this result as normal/abnormal . [facility] HospitalFqdwlhxKUOCSPPPFV0915-50-71 10:22:00 Test Item Value Reference Range Interpretation Comments Lymphocytes # (test code = Lymphocytes 1.5 1.0-5.5 N #) [facility] HospitalKhbwxccNNGONWUMTE1171-44-01 10:22:00 Test Item Value Reference Range Interpretation Comments Monocytes # (test code 0.5 See_Comment N [Aut omated message] The = Monocytes #) system which generated this result tra nsmitted reference range : <=0.8. The reference r leo was not used to int erpret this result as normal/abnormal . [facility] HospitalLleyikrVLXYCYMVUZ4827-93-78 10:22:00 Test Item Value Reference Range Interpretation Comments Basophils # (test code 0.0 See_Comment N [Aut omated message] The = Basophils #) system which generated this result tra nsmitted reference range : <=0.2. The reference r leo was not used to int erpret this result as normal/abnormal . [facility] HospitalIalunwxNSXNNMUOAV9130-65-79 10:22:00 Test Item Value Reference Range Interpretation Comments MPV (test code = MPV) 11.0 7.4-10.4 H [facility] HospitalLrfmvksUDVGMGTYZT3084-95-90 10:22:00 Test Item Value Reference Range Interpretation Comments Platelet (test code = Platelet) 161 133-450 N [facility] HospitalUklxhljCITIGVXEKT5803-34-98 10:22:00 Test Item Value Reference Range Interpretation Comments MCH (test code = MCH) 29.6 pg 27.0-31.0 N [facility] HospitalYguwuglSAIKKZEZWX9714-90-33 10:22:00 Test Item Value Reference Range Interpretation Comments MCHC (test code = MCHC) 35.4 32.0-36.0 N [facility] HospitalUvimbqbVLDTYKITCO7129-74-89 10:22:00 Test Item Value Reference Range Interpretation Comments RDW (test code = RDW) 14.1 11.5-14.5 N [facility] HospitalAbhxxepQCEHLOEYVM6469-74-92 10:22:00 Test Item Value Reference Range Interpretation Comments WBC (test code = WBC) 6.8 3.7-10.4 N [facility] HospitalDsoxkzaMAPIQBYUUE6905-81-88 10:22:00 Test Item Value Reference Range Interpretation Comments MCV (test code = MCV) 83.5 81.0-99.0 N [facility] HospitalStmsvndBWJFGBKTQV5379-42-62 10:22:00 Test Item Value Reference Range Interpretation Comments RBC (test code = RBC) 4.44 4.20-5.40 N [facility] HospitalUcrmfyoEEPXFVMHEA2782-98-05 10:22:00 Test Item Value Reference Range Interpretation Comments Hgb (test code = Hgb) 13.1 12.0-16.0 N [facility] HospitalBmnlrpbKNYAPVIWHI4986-62-01 10:22:00 Test Item Value Reference Range Interpretation Comments Hct (test code = Hct) 37.1 36.0-48.0 N [facility] GLUCOSE [id number] 02:20:00 Test Item Value Reference Range Interpretation Comments Comment1 (test code = Comment1) Notify RN/MD [facility] GLUCOSE YWWOIDH7296-80-33 02:20:00 Test Item Value Reference Range Interpretation Comments Gluc POC Lifscn (test code = Gluc POC 332 65-110 H [facility]) [facility]NuxdccsEPWHUBULP0111-08-88 09:47:00 Test Item Value Reference Range Interpretation Comments Phosphorus (test code = Phosphorus) 2.5 2.5-4.5 N [facility] HospitalEacvaliZPBXIQSTQ9216-02-28 09:47:00 Test Item Value Reference Range Interpretation Comments Glucose Lvl (test code = Glucose Lvl) 201 [facility] HospitalHkmuhjxSQBFNNBZG1159-13-87 09:47:00 Test Item Value Reference Range Interpretation Comments BUN (test code = BUN) 7 7-22 N [facility] HospitalHkeoqnwDRWFWXYPH2540-98-93 09:47:00 Test Item Value Reference Range Interpretation Comments CO2 (test code = CO2) 19 24-32 L [facility] HospitalVpgtvnaMLELWLHZL9062-16-95 09:47:00 Test Item Value Reference Range Interpretation Comments Creatinine Lvl (test code = Creatinine 0.3 0.5-1.4 L Lvl) [facility] HospitalAqgcxduCEPXNLGRA7829-02-32 09:47:00 Test Item Value Reference Range Interpretation Comments Sodium Lvl (test code = Sodium Lvl) 137 135-145 N [facility] HospitalCcqrbtaTQERYGFWO3132-64-71 09:47:00 Test Item Value Reference Range Interpretation Comments Chloride Lvl (test code = Chloride Lvl) 103 95-109 N [facility] HospitalOyenpamVEXEHNYBA1674-88-93 09:47:00 Test Item Value Reference Range Interpretation Comments Potassium Lvl (test code = Potassium 3.6 3.5-5.1 N Lvl) [facility] HospitalOaweaghZYNFILYIQ0959-60-30 09:47:00 Test Item Value Reference Range Interpretation Comments Calcium Lvl (test code = Calcium Lvl) 7.9 8.5-10.5 L [facility] HospitalVknfpiiZNYQSVKAI3036-36-54 09:47:00 Test Item Value Reference Range Interpretation Comments AGAP (test code = AGAP) 18.6 10.0-20.0 N [facility] HospitalIpkxpygOVKJUDVCL9696-66-96 09:47:00 Test Item Value Reference Range Interpretation Comments Magnesium Lvl (test code = Magnesium 1.6 1.8-2.4 L Lvl) [facility] SurgeryGpanbtkPMJCFLTOUN1823-96-40 09:47:00 Test Item Value Reference Range Interpretation Comments Basophils # (test code 0.0 See_Comment N [Aut omated message] The = Basophils #) system which generated this result tra nsmitted reference range : <=0.2. The reference r leo was not used to int erpret this result as normal/abnormal . [facility]VpewmmvEHALHQXRKA4391-93-69 09:47:00 Test Item Value Reference Range Interpretation Comments Eosinophils (test code = 0.4 See_Comment N [A utomated message] The Eosinophils) system which ge nerated this result tra nsmitted reference range : <=4.0. The reference r leo was not used to int erpret this result as normal/abnormal . [facility] HospitalVjcmwuqMKGDEXDNXF4034-31-09 09:47:00 Test Item Value Reference Range Interpretation Comments Basophils (test code = 0.5 See_Comment N [Aut omated message] The Basophils) system which ge nerated this result tra nsmitted reference range : <=1.0. The reference r leo was not used to int erpret this result as normal/abnormal . [facility] HospitalAidtoygUSUCTNYXQT4700-35-72 09:47:00 Test Item Value Reference Range Interpretation Comments Segs-Bands # (test code = Segs-Bands #) 5.9 1.5-8.1 N [facility] HospitalPimsgehIAIERRAAML1683-74-92 09:47:00 Test Item Value Reference Range Interpretation Comments Lymphocytes # (test code = Lymphocytes 1.2 1.0-5.5 N #) [facility] HospitalSiqcwcaSTJTSEFQEG8378-61-80 09:47:00 Test Item Value Reference Range Interpretation Comments Monocytes # (test code 0.5 See_Comment N [Aut omated message] The = Monocytes #) system which generated this result tra nsmitted reference range : <=0.8. The reference r leo was not used to int erpret this result as normal/abnormal . [facility] HospitalNkqyyvgHRXWPULFCN7753-44-45 09:47:00 Test Item Value Reference Range Interpretation Comments Eosinophils # (test code 0.0 See_Comment N [A utomated message] The = Eosinophils #) system whic h generated this result tra nsmitted reference range : <=0.5. The reference r leo was not used to int erpret this result as normal/abnormal . [facility] HospitalDiffpwvZGTHKGDDMC5655-90-60 09:47:00 Test Item Value Reference Range Interpretation Comments Segs (test code = Segs) 76.9 45.0-75.0 H [facility] HospitalMpmtdupOMGFBRXNQF5292-07-71 09:47:00 Test Item Value Reference Range Interpretation Comments Lymphocytes (test code = Lymphocytes) 15.9 20.0-40.0 L [facility] HospitalBwokmnbSABZKYBPHL0573-37-94 09:47:00 Test Item Value Reference Range Interpretation Comments Monocytes (test code = Monocytes) 6.3 2.0-12.0 N [facility] HospitalEavdwrlNUUGSMCZUV4507-10-56 09:47:00 Test Item Value Reference Range Interpretation Comments MCV (test code = MCV) 82.8 81.0-99.0 N [facility] HospitalXqjtaleVQNUPKFZRE0496-36-47 09:47:00 Test Item Value Reference Range Interpretation Comments Hct (test code = Hct) 39.7 36.0-48.0 N [facility] HospitalYlpeukcUUVUAAJWKV4174-90-18 09:47:00 Test Item Value Reference Range Interpretation Comments MCH (test code = MCH) 29.1 pg 27.0-31.0 N [facility] HospitalZikifqgADYDVSTFHU8592-34-63 09:47:00 Test Item Value Reference Range Interpretation Comments Hgb (test code = Hgb) 14.0 12.0-16.0 N [facility] HospitalObfsebnYYFPUIBLIF4278-30-09 09:47:00 Test Item Value Reference Range Interpretation Comments MCHC (test code = MCHC) 35.2 32.0-36.0 N [facility] HospitalAtmbjhyZJUWKLRSPB0950-11-94 09:47:00 Test Item Value Reference Range Interpretation Comments RDW (test code = RDW) 13.9 11.5-14.5 N [facility] HospitalDrcnxszLIOPHYEJCE4468-02-45 09:47:00 Test Item Value Reference Range Interpretation Comments Platelet (test code = Platelet) 160 133-450 N [facility] HospitalSregkcbRHNDBGXSJE7132-40-65 09:47:00 Test Item Value Reference Range Interpretation Comments MPV (test code = MPV) 11.9 7.4-10.4 H [facility] HospitalHbkmqruRPXTQNRPSL4423-01-05 09:47:00 Test Item Value Reference Range Interpretation Comments WBC (test code = WBC) 7.7 3.7-10.4 N [facility] HospitalVhniedxWHMSJUSGUJ5535-51-25 09:47:00 Test Item Value Reference Range Interpretation Comments RBC (test code = RBC) 4.80 4.20-5.40 N [facility] HospitalVuxylrdLEUGWUJGQ3449-68-94 10:28:00 Test Item Value Reference Range Interpretation Comments Phosphorus (test code = Phosphorus) 2.6 2.5-4.5 N [facility] HospitalVbjjicvGQXOJGODR6951-60-09 10:28:00 Test Item Value Reference Range Interpretation Comments Magnesium Lvl (test code = Magnesium 1.8 1.8-2.4 N Lvl) [facility] HospitalGquhsvtITOWAQTMO9182-29-37 10:28:00 Test Item Value Reference Range Interpretation Comments Potassium Lvl (test code = Potassium 3.7 3.5-5.1 N Lvl) [facility] HospitalLswfusoOZKCKYCPL3462-18-84 10:28:00 Test Item Value Reference Range Interpretation Comments Sodium Lvl (test code = Sodium Lvl) 137 135-145 N [facility] HospitalRnglbdhWWSZXCLKY4105-51-79 10:28:00 Test Item Value Reference Range Interpretation Comments Creatinine Lvl (test code = Creatinine 0.6 0.5-1.4 N Lvl) [facility] HospitalBhfgghvKEKLKJFXC4739-15-60 10:28:00 Test Item Value Reference Range Interpretation Comments BUN (test code = BUN) 16 7-22 N [facility] HospitalZrntylwPZMSGFVGI3196-41-43 10:28:00 Test Item Value Reference Range Interpretation Comments Glucose Lvl (test code = Glucose Lvl) 200 [facility] HospitalElywpsvOUZCGDDPL4462-00-66 10:28:00 Test Item Value Reference Range Interpretation Comments Calcium Lvl (test code = Calcium Lvl) 8.3 8.5-10.5 L [facility] HospitalHmopqwxGEFBDJOLI2231-80-59 10:28:00 Test Item Value Reference Range Interpretation Comments AGAP (test code = AGAP) 19.7 10.0-20.0 N [facility] HospitalFzczcibMHEHNKKZI2163-01-71 10:28:00 Test Item Value Reference Range Interpretation Comments Chloride Lvl (test code = Chloride Lvl) 99 95-109 N [facility] HospitalYtvzhdyJFPDPDTOX5730-51-21 10:28:00 Test Item Value Reference Range Interpretation Comments CO2 (test code = CO2) 22 24-32 L [facility] SurgeryCdyhnneKXAZFGDVNB0565-33-28 10:28:00 Test Item Value Reference Range Interpretation Comments Platelet (test code = Platelet) 172 133-450 N [facility] HospitalEwwshpxXGSYVGBHXR0211-17-73 10:28:00 Test Item Value Reference Range Interpretation Comments MPV (test code = MPV) 12.0 7.4-10.4 H [facility] HospitalQjukrbqYSDVSFHIAK6290-39-06 10:28:00 Test Item Value Reference Range Interpretation Comments WBC (test code = WBC) 7.3 3.7-10.4 N [facility] HospitalGzgvqodLZXNMFZNUL4136-25-08 10:28:00 Test Item Value Reference Range Interpretation Comments RDW (test code = RDW) 14.6 11.5-14.5 H [facility] HospitalXwggdjlVQDEWPQMIE8071-16-05 10:28:00 Test Item Value Reference Range Interpretation Comments MCHC (test code = MCHC) 35.0 32.0-36.0 N [facility] HospitalSxsrkavFDQFOUSRYT6807-40-70 10:28:00 Test Item Value Reference Range Interpretation Comments RBC (test code = RBC) 4.54 4.20-5.40 N [facility] HospitalBowlawtVLUBXYJBLV0985-48-83 10:28:00 Test Item Value Reference Range Interpretation Comments Hct (test code = Hct) 37.6 36.0-48.0 N [facility] HospitalMlccqfzMEABVXCCEL6187-93-78 10:28:00 Test Item Value Reference Range Interpretation Comments MCV (test code = MCV) 82.9 81.0-99.0 N [facility] HospitalQssdocrCJPVTNBXPC8679-99-61 10:28:00 Test Item Value Reference Range Interpretation Comments MCH (test code = MCH) 29.0 pg 27.0-31.0 N [facility] HospitalKvefuezEMDEGJIOHS4856-41-04 10:28:00 Test Item Value Reference Range Interpretation Comments Hgb (test code = Hgb) 13.2 12.0-16.0 N [facility] HospitalFnynvumOZPAIEQVOP9924-13-73 10:28:00 Test Item Value Reference Range Interpretation Comments Elliptocyte (test code = Slight A Elliptocyte) *ABN*(08/21/2011 04:28:00) [facility] HospitalGbftqyjVMNQJIEHFW2971-46-00 10:28:00 Test Item Value Reference Range Interpretation Comments Polychrom (test code = Slight (08/21/2011 N Polychrom) 04:28:00) [facility] HospitalWflnqjoMBCMLVAVMD0703-30-63 10:28:00 Test Item Value Reference Range Interpretation Comments Basophils # (test code 0.0 See_Comment N [Aut omated message] The = Basophils #) system which generated this result tra nsmitted reference range : <=0.2. The reference r leo was not used to int erpret this result as normal/abnormal . [facility] HospitalApowfulBWVNCEEEYX5011-52-33 10:28:00 Test Item Value Reference Range Interpretation Comments Hypochrom (test code = Slight (08/21/2011 N Hypochrom) 04:28:00) [facility] HospitalWnhbgtyRUOUKLWQUK5450-03-49 10:28:00 Test Item Value Reference Range Interpretation Comments Monocytes # (test code 0.6 See_Comment N [Aut omated message] The = Monocytes #) system which generated this result tra nsmitted reference range : <=0.8. The reference r leo was not used to int erpret this result as normal/abnormal . [facility] HospitalJuwonahVFQWAOGTMI6111-70-70 10:28:00 Test Item Value Reference Range Interpretation Comments Eosinophils # (test code 0.0 See_Comment N [A utomated message] The = Eosinophils #) system whic h generated this result tra nsmitted reference range : <=0.5. The reference r leo was not used to int erpret this result as normal/abnormal . [facility] HospitalWwiylspEMACIQAXUG6402-69-18 10:28:00 Test Item Value Reference Range Interpretation Comments Segs-Bands # (test code = Segs-Bands #) 5.3 1.5-8.1 N [facility] HospitalHgqtbzxGHJMXUACUH1333-16-57 10:28:00 Test Item Value Reference Range Interpretation Comments Lymphocytes # (test code = Lymphocytes 1.3 1.0-5.5 N #) [facility] HospitalWidzluyHSYKEIRVPM4259-91-92 10:28:00 Test Item Value Reference Range Interpretation Comments Basophils (test code = 0.5 See_Comment N [Aut omated message] The Basophils) system which ge nerated this result tra nsmitted reference range : <=1.0. The reference r leo was not used to int erpret this result as normal/abnormal . [facility] HospitalUcozndjAJQWIICMZU8520-16-21 10:28:00 Test Item Value Reference Range Interpretation Comments Monocytes (test code = Monocytes) 8.5 2.0-12.0 N [facility] HospitalPrxcwjhOFLPRBYPGW7906-59-64 10:28:00 Test Item Value Reference Range Interpretation Comments Eosinophils (test code = 0.3 See_Comment N [A utomated message] The Eosinophils) system which ge nerated this result tra nsmitted reference range : <=4.0. The reference r leo was not used to int erpret this result as normal/abnormal . [facility] HospitalFpnqmuySIUJNGPJLJ1569-30-03 10:28:00 Test Item Value Reference Range Interpretation Comments Lymphocytes (test code = Lymphocytes) 17.3 20.0-40.0 L [facility] HospitalTzrcxinRLICCCCVLF1642-96-78 10:28:00 Test Item Value Reference Range Interpretation Comments Segs (test code = Segs) 73.4 45.0-75.0 N [facility] GLUCOSE POYWQOM9510-96-48 07:47:00 Test Item Value Reference Range Interpretation Comments Comment2 (test code = Comment2) [facility] w/Lab [facility] HospitalWkecqebZUCVUBJFZ8156-43-10 21:58:00 Test Item Value Reference Range Interpretation Comments S Preg (test code = S Negative (08/19/2011 N Preg) 15:58:00) [facility] HospitalJsyhkggUGQEQWGRG7005-23-28 21:58:00 Test Item Value Reference Range Interpretation Comments Lipase Lvl (test code = Lipase Lvl) 169 73-393 N [facility] HospitalFeenujbORUKYANFK6855-91-38 21:58:00 Test Item Value Reference Range Interpretation Comments ALT (test code = ALT) 54 See_Comment N [Auto mated message] The system which ge nerated this result transmit rohit reference range : <=65. The reference range was not used to interpr et this result as reji l/abnormal. [facility] HospitalOswicdmWXTMAZAMQ3574-89-04 21:58:00 Test Item Value Reference Range Interpretation Comments Alk Phos (test code = Alk Phos) 110 39-136 N [facility] HospitalYcixljcDPLUWVPUD9921-74-95 21:58:00 Test Item Value Reference Range Interpretation Comments Bili Direct (test code 0.1 See_Comment N [Aut omated message] The = Bili Direct) system which generated this result tra nsmitted reference range : <=0.3. The reference r leo was not used to int erpret this result as reji l/abnormal. [facility] HospitalYzurqdqXUNXDZKYH5651-65-43 21:58:00 Test Item Value Reference Range Interpretation Comments Bili Total (test code = Bili Total) 0.9 0.2-1.3 N [facility] HospitalMqdqdcgGKBTDRKFL7141-12-88 21:58:00 Test Item Value Reference Range Interpretation Comments Albumin Lvl (test code = Albumin Lvl) 4.4 3.5-5.0 N [facility] HospitalXfoxgedQMARQBNRD8420-29-98 21:58:00 Test Item Value Reference Range Interpretation Comments Total Protein (test code = Total 8.8 6.4-8.4 H Protein) [facility] HospitalNzivkfuYRZXKDGZO7676-88-81 21:58:00 Test Item Value Reference Range Interpretation Comments Bili Indirect (test 0.8 See_Comment N [Automa rohit message] The code = Bili Indirect) system which generated this result tra nsmitted reference range : <=1.0. The reference r leo was not used to int erpret this result as normal/abnormal . [facility] HospitalJnusyujWMECWKJSE7498-17-74 21:58:00 Test Item Value Reference Range Interpretation Comments AST (test code = AST) 36 See_Comment N [Auto mated message] The system which ge nerated this result transmit rohit reference range : <=37. The reference range was not used to interpr et this result as reji l/abnormal. [facility] HospitalQruwqjuOBYGBRYMJ4841-75-48 21:58:00 Test Item Value Reference Range Interpretation Comments Globulin (test code = Globulin) 4.4 2.0-4.0 H [facility] HospitalFweizpiUAZVPQPGP7118-60-78 21:58:00 Test Item Value Reference Range Interpretation Comments A/G Ratio (test code = A/G Ratio) 1.0 0.7-1.6 N [facility]HlljpsbWVEAZGSGTO9407-66-61 21:58:00 Test Item Value Reference Range Interpretation Comments UA Bacteria (test code Occasional /HPF N = UA Bacteria) (08/19/2011 15:58:00) [facility] HospitalTinebruZSSFOHBDIO5541-21-66 21:58:00 Test Item Value Reference Range Interpretation Comments UA RBC (test 3-5 /HPF See_Comment A [Automated mes pastor] code = UA RBC) *ABN*(08/19/2011 The syste m which 15:58:00) generated this result transmitted ref erence range: <=2. The reference range was not used to int erpret this result as normal/abnormal . [facility] HospitalSagkaswLCHKQJQUYR0671-92-50 21:58:00 Test Item Value Reference Range Interpretation Comments UA WBC (test code = 3 See_Comment [Automa rohit message] The UA WBC) system which ge nerated this result transmit rohit reference range : <=5. The reference range was not used to interpr et this result as reji l/abnormal. [facility] HospitalJjxlpnvFEUWSJZLIW9166-16-43 21:58:00 Test Item Value Reference Range Interpretation Comments UA Mucus (test code = Few /LPF (08/19/2011 N UA Mucus) 15:58:00) [facility] HospitalVvpyneiEUUUFGTIGH3395-10-80 21:58:00 Test Item Value Reference Range Interpretation Comments UA Amorph Destiny (test Occasional /HPF A code = UA Amorph *ABN*(08/19/2011 Destiny) 15:58:00) [facility] HospitalHsnbrheICOHXBXAFJ5380-27-53 21:58:00 Test Item Value Reference Range Interpretation Comments UA Urobilinogen (test code = UA 0.2 0.1-1.0 N Urobilinogen) [facility] HospitalCpmcdngKXFZTSUHKH9654-45-22 21:58:00 Test Item Value Reference Range Interpretation Comments UA Sq Epi (test code = Rare /LPF (08/19/2011 N UA Sq Epi) 15:58:00) [facility] HospitalYllodcgQLVQPQPERN0474-49-95 21:58:00 Test Item Value Reference Range Interpretation Comments Micro? (test code = Performed (08/19/2011 N Micro?) 15:58:00) [facility]LTFRYAUYLP5695[facility] 21:58:00 Test Item Value Reference Range Interpretation Comments UA Leuk Est (test Negative (08/19/2011 N code = UA Leuk Est) 15:58:00) [facility]andZbiiqbpMFTCNHVHOQ3017-19-33 21:58:00 Test Item Value Reference Range Interpretation Comments UA Nitrite (test code Negative (08/19/2011 N = UA Nitrite) 15:58:00) [facility] HospitalWolrnmgWGTGKHXZER2926-29-34 21:58:00 Test Item Value Reference Range Interpretation Comments UA pH (test code = UA pH) 5.5 1 5.0-8.0 N [facility] HospitalPmyzvafGXQGHAPOOB1536-52-22 21:58:00 Test Item Value Reference Range Interpretation Comments UA Blood (test code = Trace *ABN*(08/19/2011 A UA Blood) 15:58:00) [facility]UkmrvxtQRHBNKHCLX5363-45-95 21:58:00 Test Item Value Reference Range Interpretation Comments UA Bili (test code = Negative (08/19/2011 N UA Bili) 15:58:00) [facility]aXfhskloZSICYSOLXL0158-89-78 21:58:00 Test Item Value Reference Range Interpretation Comments UA Ketones (test code = 80 mg/dL A UA Ketones) *ABN*(08/19/2011 15:58:00) [facility]aZokovhkWBNTKYHIGF1523-07-52 21:58:00 Test Item Value Reference Range Interpretation Comments UA Glucose (test code = >=1000 mg/dL A UA Glucose) *ABN*(08/19/2011 15:58:00) [facility]aVyeaswxWAGEDQZBVG7439-96-11 21:58:00 Test Item Value Reference Range Interpretation Comments UA Protein (test code Negative (08/19/2011 N = UA Protein) 15:58:00) [facility]XfjyntdGYLCGOTYAL5794-06-45 21:58:00 Test Item Value Reference Range Interpretation Comments UA Turbidity (test code Slight Cloudy N = UA Turbidity) (08/19/2011 15:58:00) [facility]aWhgcpufRZUCBYJNRO4021-43-20 21:58:00 Test Item Value Reference Range Interpretation Comments UA Spec Grav (test code = UA Spec 1.025 1 Grav) [facility]aIwqhykpQQOUHQCIBI3317-85-48 21:58:00 Test Item Value Reference Range Interpretation Comments UA Color (test code = Yellow (08/19/2011 N UA Color) 15:58:00) [facility] HospitalYsdurtdESCYUZJZB7355-46-16 21:13:00 Test Item Value Reference Range Interpretation Comments AST (test code = AST) 23 See_Comment N [Auto mated message] The system which ge nerated this result transmit rohit reference range : <=37. The reference range was not used to interpr et this result as reji l/abnormal. [facility] HospitalEddvibiSAMGAUPXB8008-25-25 21:13:00 Test Item Value Reference Range Interpretation Comments Bili Total (test code = Bili Total) 1.0 0.2-1.3 N [facility] HospitalHszxlbkINYWQCURK1996-83-81 21:13:00 Test Item Value Reference Range Interpretation Comments Alk Phos (test code = Alk Phos) 115 39-136 N [facility] HospitalWtbskoaOSKHPTVUK5583-27-47 21:13:00 Test Item Value Reference Range Interpretation Comments ALT (test code = ALT) 56 See_Comment N [Auto mated message] The system which ge nerated this result transmit rohit reference range : <=65. The reference range was not used to interpr et this result as reji l/abnormal. [facility] HospitalJcziwppIEDYLVKDZ3876-01-77 21:13:00 Test Item Value Reference Range Interpretation Comments Total Protein (test code = Total 9.0 6.4-8.4 H Protein) [facility] HospitalRjpzzaoXRBIXJGBZ0662-79-67 21:13:00 Test Item Value Reference Range Interpretation Comments Albumin Lvl (test code = Albumin Lvl) 4.8 3.5-5.0 N [facility] HospitalOmtodjyUAMBYZCAT5633-10-72 21:13:00 Test Item Value Reference Range Interpretation Comments Globulin (test code = Globulin) 4.2 2.0-4.0 H [facility] HospitalWutvdcfSQESJXXTE6968-23-01 21:13:00 Test Item Value Reference Range Interpretation Comments A/G Ratio (test code = A/G Ratio) 1.1 0.7-1.6 N [facility] HospitalQoipjvbHGEDWFROA1495-10-27 21:13:00 Test Item Value Reference Range Interpretation Comments B/C Ratio (test code = B/C Ratio) 30 6-25 H [facility] HospitalYqeyidlZLWLMZUQAB1273-84-56 21:13:00 Test Item Value Reference Range Interpretation Comments RBC Morph (test code = Normal (08/19/2011 N RBC Morph) 15:13:00) [facility] HospitalQnqmsycAHETBROQFQ2483-54-55 21:13:00 Test Item Value Reference Range Interpretation Comments Large Plt (test code = Slight *ABN*(08/19/2011 A Large Plt) 15:13:00) [facility] HospitalSnephevTNORBDKWQS1721-10-21 21:13:00 Test Item Value Reference Range Interpretation Comments Atypical Lymphs (test code = Atypical 0.0 N Lymphs) [facility] HospitalAxlqxnuFEGECALWDT5978-01-65 21:13:00 Test Item Value Reference Range Interpretation Comments Bands (test code = 0.0 See_Comment N [Automat ed message] The Bands) system which ge nerated this result transmit rohit reference range : <=11.0. The reference r leo was not used to interpr et this result as reji l/abnormal. [facility] HospitalNupaigbXTJGRZATS2542-19-19 21:10:00 Test Item Value Reference Range Interpretation Comments O2 Sat Roberth (test code = O2 Sat Roberth) 74.0 40.0-70.0 H [facility] HospitalUqfybvdYDNPPHPUZ9789-09-68 21:10:00 Test Item Value Reference Range Interpretation Comments Temp Roberth (test code = Temp Roberth) 37.0 [facility] HospitalBgrzcsqSXPAICJWS8663-69-93 21:10:00 Test Item Value Reference Range Interpretation Comments pO2 Roberth (test code = pO2 Roberth) 42 20-49 N [facility] HospitalAsgbzneJNJWMNGPG3417-67-27 21:10:00 Test Item Value Reference Range Interpretation Comments HCO3 Roberth (test code = HCO3 Roberth) 17.3 22.0-26.0 L [facility] HospitalSvwjdodFHNSWULNZ0516-16-37 21:10:00 Test Item Value Reference Range Interpretation Comments pH Roberth (test code = pH Roberth) 7.34 7.28-7.42 N [facility] HospitalZbjyacaDJZFJHHLW5754-58-28 21:10:00 Test Item Value Reference Range Interpretation Comments pCO2 Roberth (test code = pCO2 Roberth) 32 38-52 L [id number] 21:10:00 Test Item Value Reference Range Interpretation Comments BE Roberth (test code = -7 See_Comment L [Automa rohit message] The BE Roberth) system which ge nerated this result transmit orhit reference range : <=2. The reference range was not used to interpr et this result as reji l/abnormal. [id number] 20:34:00 Test Item Value Reference Range Interpretation Comments CDC-HIV 1/2 Ab (test Negative *NA*(08/19/2011 code = CDC-HIV 1/2 14:34:00) Ab) [facility]
[2021-12-05] MEDS ORDERED: LORazepam 2 MG/ML VIAL ONE (09:43)
[2021-12-05] MEDS ORDERED: DIPHENHYDRAMINE 50 MG/ML VIAL ONE (09:43)
[2021-12-05] MEDS ORDERED: ONDANSETRON 4 MG/2 ML VIAL ONE ×3 (09:43→12:59)
[2021-12-05] MEDS ORDERED: METOCLOPRAMIDE 10 MG/2mL INJ ONE (09:44)
[2021-12-05 10:38] LABS: Absolute Lymphocytes (CBC) 0.5 K/uL (0.7-4.9); Hematocrit 31.8 % (36.0-45.0); Lymphocytes % 7.9 % (15.3-44.8); MPV 9.9 fL (7.6-11.3); RBC Red Blood Cell Count 3.51 M/uL (3.86-4.86)
[2021-12-05 11:09] LABS: Albumin 3.5 g/dL (3.4-5.0); Bilirubin Total 0.5 mg/dL (0.2-1.0); Potassium 4.3 mmol/L (3.5-5.1); Protein, Total 7.4 g/dL (6.4-8.2)
[2021-12-05 11:23] LABS: White Blood Cell Scan OK (OK)
[2021-12-05 11:24] LABS: Anisocytosis 1+; Blood Morphology Comment NOTED (NOT SEEN); Macrocytosis 1+; Platelet Estimate DECR
[2021-12-05] MEDS ORDERED: HYDROMORPHONE HCL 1 MG/ML INJ ONE (12:49)
[2021-12-05] MEDS ORDERED: KETOROLAC 30 MG/ML INJ ONE (12:59)
[2021-12-05] MEDS ORDERED: ACETAMINOPHEN 500 MG TAB ONE (14:03)
--- NOTE | 2021-12-05 14:31 | RAD REPORT ---
EXAM DESCRIPTION: CTAbdomen Pelvis Wo Contrast - 12/05/2021 2:19 pm CLINICAL HISTORY: abdominal pain and fever COMPARISON: Abdomen Pelvis Wo Contrast dated 08/08/2021; Abdomen Pelvis Wo Contrast dated 06/30/19; Abdomen Pelvis Wo Contrast dated 01/16/2021; Abdomen Pelvis Wo Contrast dated 11/05/2020 TECHNIQUE: CT of the abdomen and pelvis was performed. All CT scans are performed using dose optimization technique as appropriate and may include automated exposure control or mA/KV adjustment according to patient size. FINDINGS: Lower chest: Small pleural effusions and ground-glass opacities. Cardiomegaly. Multi-vesse l coronary artery disease. Small pericardial effusion. Liver: No acute abnormality or suspicious lesions. Biliary: No biliary ductal dilatation. Small wall calcifications versus gallstones. No CT evidence of acute cholecystitis. Stomach: No significant focal abnormality. Duodenum: No significant focal abnormality. Pancreas: No significant abnormality. Spleen: No significant abnormality. Adrenal: No suspicious lesions. Kidney/ureter: No hydronephrosis. No renal calculi. Retroperitoneum: No retroperitoneal adenopathy. Vascular: No aneurysm. Heavily calcified branch vessels of the aorta. Bowel: No significant focal abnormality. Normal appendix. Peritoneum: No ascites or free air. Bladder: Grossly unremarkable. Reproductive: No adnexal masses. Bones: No acute fracture. Other: n/a IMPRESSION: No acute intra-abdominal or pelvic finding. Normal appendix. No bowel obstruction. Partially imaged pulmonary edema in the lung bases with small pleural effusions.
[2021-12-05] MEDS ORDERED: NA CHLORIDE 0.9% 1,000 ML ONE ×2 (15:39→16:10)
--- NOTE | 2021-12-05 15:42 | ER ---
Nurse's Notes [facility] Name: Cathi Zaldivar Age: 41 yrs Sex: Female : 1980 Arrival Date: 12/05/2021 Time: 08:57 Bed 2 Private MD: Diagnosis: Cardiogenic shock Presentation: 12/05 09:12 Chief complaint: Patient states: abd pain and vomiting today , hx of gastroparesis. iw Ebola Screen: Patient negative for fever greater than or equal to 101.5 degrees Fahrenheit, and additional compatible Ebola Virus Disease symptoms Patient denies exposure to infectious person. Patient denies travel to an Ebola-affected area in the 21 days before illness onset. No symptoms or risks identified at this time. Initial Sepsis Screen: Does the patient meet any 2 criteria? No. Patient's initial sepsis screen is negative. Does the patient have a suspected source of infection? No. Patient's initial sepsis screen is negative. Risk Assessment: Do you want to hurt yourself or someone else? Patient reports no desire to harm self or others. Onset of symptoms was December 05, 2021. 09:12 Method Of Arrival: Wheelchair iw 09:12 Acuity: JESSICA 3 iw 15:05 Acuity: JESSICA 2 iw 16:06 Care prior to arrival: pt in ED room 17 when alfred napier called. Compressions began at ph 16:06. 20:09 Coronavirus screen: At this time, unable to obtain information related to travel as6 outside the [place] Triage Assessment: 10:04 General: Appears Behavior is agitated, anxious. GI: Abdomen is non-distended, Guarding holman noted Reports diarrhea, nausea, Pain is 10 out of 10 on a pain scale. vomiting. 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 - Post-menopause as6 Historical: - Allergies: 09:13 Lisinopril; iw 09:13 Morphine; iw 09:13 ambien; iw 09:13 GUAIFENESIN; iw 09:13 Nitrofurantoin Macrocrystal; iw 09:13 Codeine; iw 09:13 PENICILLINS; iw 09:13 zolpidem tartrate; iw 09:13 Prolixin; iw - PMHx: 09:13 "mental problems"; CHF; chronic kidney disease; cyclic vomiting syndrome; Diabetes - iw NIDDM; Dialysis; m-w-f; ENCEPHALOPATHY; Gastroparesis; Hypertension; ibs; liver failure; PERIPHERAL NEUROPATHY; pseudo aneurysm R groin; Seizures; - PSHx: 09:13 section; dialysis catheter R chest wall; eye removed; iw - Immunization history:: Adult Immunizations. - Social history:: Smoking status: Patient denies any tobacco usage or history of. Screenin:03 Abuse screen: Denies threats or abuse. Denies injuries from another. Nutritional holman screening: No deficits noted. Tuberculosis screening: No symptoms or risk factors identified. Fall Risk None identified. Assessment: 10:01 Pain: Complains of pain in abdomen. GI: Abdomen is non-distended, Bowel sounds present holman X 4 quads. Reports diarrhea, nausea, Pain is 10 out of 10 on a pain scale. vomiting. 16:05 Reassessment: Dr Bautista at bedside to assess pt, noted to be unresponsive to stimuli, ph no palpable pulse, code blue called overhead and CPR initiated by Dr. Bautista, DR Graf also at bedside. 16:06 CPR assessment: unresponsive, no respiratory effort, Ambu ventilation, pale. ph 16:08 Reassessment: weak pulse palpable. Cardiovascular: Rhythm is sinus tachycardia. ph 16:09 Reassessment: Pt awakened when Dr Graf attempted to intubate, c/o pain to chest, ph continues to have decreased LOC, awakens to sternal rub but remains lethargic. 20:11 General: pt transferred on Levophed and epinephrine drip. . as6 Vital Signs: 09:12 BP 163 / 105; Pulse 115; Resp 20; Temp 100.1(TE); Pulse Ox 99% on R/A; Weight 72.57 kg; iw Height 5 ft. 1 in. (154.94 cm); Pain 10/10; 11:02 BP 126 / 72; Pulse 77; Resp 18; Pulse Ox 96% on R/A; holman 14:01 Temp 101.8(O); holman 14:05 BP 90 / 54; Pulse 97; Resp 19; Pulse Ox 94% on R/A; holman 14:43 BP 69 / 45; Pulse 87; Resp 17; Temp 98.9(O); Pulse Ox 96% ; holman 16:10 BP 109 / 82; Pulse 154; Resp 18 A; Pulse Ox 100% on BVM; ph 16:15 BP 146 / 75; Pulse 104; Resp 18; Temp 100.2(R); Pulse Ox 100% on 100% Non-rebreather ph mask; 16:24 BP 74 / 58; Pulse 100; Resp 26; Pulse Ox 100% on 100% Non-rebreather mask; ph 16:45 BP 68 / 48; Pulse 95; Resp 20; Pulse Ox 98% on Non-rebreather mask; ph 17:15 BP 51 / 32; Pulse 85; ph 17:30 BP 33 / 19; Pulse 83; ph 17:45 BP 114 / 76; holman 18:20 BP 128 / 83; Pulse 99; Resp 18; Pulse Ox 98% on 100% FiO2 ETT vent; holman 18:23 BP 125 / 85; Pulse 96; Resp 18; Pulse Ox 97% on 100% FiO2 ETT vent; holman 19:00 BP 95 / 67; Pulse 88; Resp 18 A; Pulse Ox 96% on 100% FiO2 ETT vent; as6 19:10 BP 101 / 66; Pulse 88; Resp 18 A; Pulse Ox 96% on 100% FiO2 ETT vent; as6 19:15 BP 127 / 81; Pulse 87; Resp 20 A; Pulse Ox 99% on 100% FiO2 ETT vent; as6 09:12 Body Mass Index 30.23 (72.57 kg, 154.94 cm) iw ED Course: 08:57 Patient arrived in ED. rg4 09:13 Triage completed. iw 09:14 Bailee Arias, RN is Primary Nurse. holman 09:14 Arm band placed on. iw 09:18 Mil[facility]C [facility]. kb 09:18 Jose De Jesus Graf MD is Attending Physician. kb 10:03 Patient has correct armband on for positive identification. Bed in low position. holman 10:03 No provider procedures requiring assistance completed. holman 10:31 Accessed peripheral vein via ultrasound, utilizing dynamic ultrasound technique using jd3 18G Livestarflo IV catheter Clean \\T\\ dry. Dressing intact. Good blood return. Flushes easily. 18 G left upper arm. 14:21 CT Abd/Pelvis - Without Contrast In Process Unspecified. EDMS 15:41 Chandler Bautista is Hospitalizing Provider. kb 16:40 Chest Single View XRAY In Process Unspecified. EDMS 17:09 Assisted provider with intubation using 7.5 mm ETT via oral route. ET tube secured at ph 23cm at the lips. Set up intubation tray. Intubated by Jose De Jesus Graf MD Placement verified by CO2 detector w/ + color change, auscultating bilateral breath sounds, CXR, Patient tolerated well. 17:21 CXR XRAY In Process Unspecified. EDMS 18:02 initiated a transfer with Nora from the [facility] at the request eb of the family. 18:14 connected the heart failure specialist marine engineering consultant for [facility] with Dr. miguelito Graf for patient transfer consultation. 18:24 administrative approval given by Nora Azar Rn / patient has been accepted to [facility]/ Dr. Dickson has accepted the patient in transfer/ report to be called to [phone]. 18:46 XRAY Chest (1 view) In Process Unspecified. EDMS 19:10 Primary Nurse role handed off by Bailee Arias RN mw2 19:19 Yuri Mathis RN is Primary Nurse. as6 20:08 Patient transferred, IV remains in place. as6 Administered Medications: 10:33 Drug: Ativan (LORazepam) 1 mg Route: IVP; Site: left upper arm; holman 10:34 Follow up: Response: No adverse reaction holman 10:33 Drug: Zofran (Ondansetron) 4 mg Route: IVP; Site: left upper arm; holman 10:34 Follow up: Response: No adverse reaction holman 10:33 Drug: Reglan (metoCLOPramide) 10 mg Route: IVP; Site: left upper arm; holman 10:34 Follow up: Response: No adverse reaction holman 10:34 Drug: Benadryl (diphenhydrAMINE) 12.5 mg Route: IVP; Site: left upper arm; holman 10:34 Follow up: Response: No adverse reaction holman 12:55 Drug: Ketorolac 15 mg Route: IVP; Site: left upper arm; holman 12:56 Follow up: Response: No adverse reaction holman 12:56 CANCELLED (Physician Discretion): Dilaudid (HYDROmorphone) 1 mg IVP once holman 12:56 Drug: Zofran (Ondansetron) 4 mg Route: IVP; Site: left upper arm; holman 12:56 Follow up: Response: No adverse reaction holman 14:02 Drug: Tylenol 1000 mg Route: PO; holman 14:04 Follow up: Response: No adverse reaction holman 15:53 Not Given (Duplicate Order): NS 0.9% 1000 ml IV at 1 bolus Per protocol; 1000 mL bolus kb 15:57 Drug: NS 0.9% 500 ml Route: IV; Rate: bolus; Site: right femoral; holman 16:36 Follow up: Response: No adverse reaction holman 16:56 Follow up: IV Status: Completed infusion holman 16:06 Drug: EPINEPHrine 0.1mg/mL 1:10,000 1 mg Route: IVP; Site: right femoral; ph 17:28 Follow up: Response: No adverse reaction holman 16:36 Drug: Cefepime 1 grams Route: IVPB; Rate: 200 ml/hr; Infused Over: 30 mins; Site: right holman femoral; 16:56 Follow up: IV Status: Completed infusion holman 16:37 Drug: NS 0.9% 1000 ml Route: IV; Rate: 1 bolus; Site: right femoral; holman 16:56 Follow up: IV Status: Completed infusion holman 16:58 Drug: EPINEPHrine 0.1mg/mL 1:10,000 1 mg Route: IVP; Site: right femoral; ph 17:28 Follow up: Response: No adverse reaction holman 17:08 Drug: Rocuronium 60 mg Route: IVP; Site: right antecubital; ph 17:29 Follow up: Response: No adverse reaction holman 17:08 Drug: Etomidate 20 mg Route: IVP; Site: right femoral; ph 17:29 Follow up: Response: No adverse reaction holman 17:28 Drug: vancoMYCIN 1 grams Route: IVPB; Infused Over: 2 hrs; Site: right femoral; holman 20:05 Follow up: Response: No adverse reaction; IV Status: Completed infusion; IV Intake: as6 250ml 19:17 Drug: Sodium Bicarbonate 1 amp Route: IVP; Site: right femoral; as6 20:07 Follow up: Response: No adverse reaction as6 19:18 Drug: Sodium Bicarbonate 1 amp Route: IVP; Site: right femoral; as6 20:07 Follow up: Response: No adverse reaction as6 19:22 Drug: Calcium Chloride 1 grams Route: IVP; Site: right femoral; as6 20:07 Follow up: Response: No adverse reaction as6 20:06 Not Given (Other Intervention Used): Vasopressin 0.02 units/min IV at calculated rate as6 continuous Medication: 10:03 VIS not applicable for this client. holman Intake: 20:05 IV: 250ml; Total: 250ml. as6 Outcome: 15:42 Decision to Hospitalize by Provider. kb 18:53 ER care complete, transfer ordered by MD. kb 20:08 Transferred by helicopter Transfer form completed. X-rays sent w/ patient. as6 20:08 critical 20:09 Outcome Resuscitation successful as6 20:11 Patient left the ED. lp1 Signatures: Dispatcher [employer] EDMS Milvia Sanders, IRON CASTER-C IRON CASTER-Ckb Corinne Easton RN RN iw Hollie Tomas RN RN lp1 Darleen Tucker RN RN harjit Antonio, Mari rg4 Peyman Negron RN RN jd3 Anil Sterling mw2 Marquita Lazaro Ashby, RN RN as6 Au-StagerBailee RN RN holman Corrections: (The following items were deleted from the chart) 09:14 09:12 Pulse 115bpm; Resp 20bpm; Pulse Ox 99% RA; 72.57 kg; Height 5 ft. 1 in.; BMI: iw 30.2; Pain 10/10; iw 09:24 09:12 BP 163 / 105; Pulse 115bpm; Resp 20bpm; Pulse Ox 99% RA; 72.57 kg; Height 5 ft. 1 iw in.; BMI: 30.2; Pain 10/10; iw 12:57 09:13 Allergies: Ibuprofen; iw holman 18:20 18:02 initiated a transfer with Nora from the [facility]. eb eb
--- NOTE | 2021-12-05 15:42 | EDPHYS ---
Physician Documentation [facility] Name: Cathi Zaldivar Age: 41 yrs Sex: Female : 1980 Arrival Date: 12/05/2021 Time: 08:57 Bed 2 Private MD: ED Physician Jose De Jesus Graf HPI: 12/05 09:43 This 41 yrs old Female presents to ER via Wheelchair with complaints of kb Vomiting, Abdominal Pain. 09:43 The patient has not recently seen a physician. kb 09:44 The patient presents with abdominal pain that is diffuse. Onset: The symptoms/episode kb began/occurred this morning. The symptoms do not radiate. Associated signs and symptoms: Pertinent positives: nausea, vomiting, and diarrhea, fever. The symptoms are described as constant. Modifying factors: The symptoms are alleviated by nothing, the symptoms are aggravated by pressure. Severity of pain: At its worst the pain was moderate in the emergency department the pain is unchanged. The patient has experienced similar episodes in the past, multiple times. Pt reports abd pain, n/v/d started this morning at the end of dialysis. States it feels exactly like gastroparesis episodes she has had in the past. . 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 - Post-menopause as6 Historical: - Allergies: 09:13 Lisinopril; iw 09:13 Morphine; iw 09:13 ambien; iw 09:13 GUAIFENESIN; iw 09:13 Nitrofurantoin Macrocrystal; iw 09:13 Codeine; iw 09:13 PENICILLINS; iw 09:13 zolpidem tartrate; iw 09:13 Prolixin; iw - PMHx: 09:13 "mental problems"; CHF; chronic kidney disease; cyclic vomiting syndrome; Diabetes - iw NIDDM; Dialysis; m-w-f; ENCEPHALOPATHY; Gastroparesis; Hypertension; ibs; liver failure; PERIPHERAL NEUROPATHY; pseudo aneurysm R groin; Seizures; - PSHx: 09:13 section; dialysis catheter R chest wall; eye removed; iw - Immunization history:: Adult Immunizations. - Social history:: Smoking status: Patient denies any tobacco usage or history of. ROS: 09:41 Constitutional: Negative for fever, chills, and weight loss. kb 09:41 Abdomen/GI: Positive for abdominal pain, nausea, vomiting, and diarrhea. 09:41 All other systems are negative. Exam: 09:41 Head/Face: Normocephalic, atraumatic. ENT: Moist Mucous membranes Cardiovascular: kb Regular rate and rhythm with a normal S1 and S2. No gallops, murmurs, or rubs. No pulse deficits. Respiratory: Respirations even and unlabored. No increased work of breathing. Talking in full sentences Skin: Warm, dry with normal turgor. Normal color. MS/ Extremity: Pulses equal, no cyanosis. Neurovascular intact. Full, normal range of motion. Neuro: Awake and alert, GCS 15, oriented to person, place, time, and situation. Moves all extremities. Normal gait. Psych: Awake, alert, with orientation to person, place and time. Behavior, mood, and affect are within normal limits. 09:41 Constitutional: The patient appears alert, awake, uncomfortable. 09:41 Abdomen/GI: Inspection: abdomen appears normal, Bowel sounds: normal, in all quadrants, Palpation: soft, in all quadrants, moderate abdominal tenderness, in all quadrants. Vital Signs: 09:12 BP 163 / 105; Pulse 115; Resp 20; Temp 100.1(TE); Pulse Ox 99% on R/A; Weight 72.57 kg; iw Height 5 ft. 1 in. (154.94 cm); Pain 10/10; 11:02 BP 126 / 72; Pulse 77; Resp 18; Pulse Ox 96% on R/A; holman 14:01 Temp 101.8(O); holamn 14:05 BP 90 / 54; Pulse 97; Resp 19; Pulse Ox 94% on R/A; holman 14:43 BP 69 / 45; Pulse 87; Resp 17; Temp 98.9(O); Pulse Ox 96% ; holman 16:10 BP 109 / 82; Pulse 154; Resp 18 A; Pulse Ox 100% on BVM; ph 16:15 BP 146 / 75; Pulse 104; Resp 18; Temp 100.2(R); Pulse Ox 100% on 100% Non-rebreather ph mask; 16:24 BP 74 / 58; Pulse 100; Resp 26; Pulse Ox 100% on 100% Non-rebreather mask; ph 16:45 BP 68 / 48; Pulse 95; Resp 20; Pulse Ox 98% on Non-rebreather mask; ph 17:15 BP 51 / 32; Pulse 85; ph 17:30 BP 33 / 19; Pulse 83; ph 17:45 BP 114 / 76; holman 18:20 BP 128 / 83; Pulse 99; Resp 18; Pulse Ox 98% on 100% FiO2 ETT vent; holman 18:23 BP 125 / 85; Pulse 96; Resp 18; Pulse Ox 97% on 100% FiO2 ETT vent; holman 19:00 BP 95 / 67; Pulse 88; Resp 18 A; Pulse Ox 96% on 100% FiO2 ETT vent; as6 19:10 BP 101 / 66; Pulse 88; Resp 18 A; Pulse Ox 96% on 100% FiO2 ETT vent; as6 19:15 BP 127 / 81; Pulse 87; Resp 20 A; Pulse Ox 99% on 100% FiO2 ETT vent; as6 09:12 Body Mass Index 30.23 (72.57 kg, 154.94 cm) iw Procedures: 16:11 Central Line: the site was prepped with Betadine, in sterile fashion, a triple lumen jmm catheter was inserted, in the right femoral vein, in 1 attempts. placement was verified, by blood return, the site was dressed with using sterile technique, the patient tolerated the procedure, well, US guided. MDM: 09:18 Patient medically screened. 09:41 Data reviewed: vital signs, nurses notes. Data interpreted: Pulse oximetry: on room air kb is 99 %. Interpretation: normal. 15:31 Physician consultation: Chandler Bautista was contacted at 15:31, regarding admission, to the telemetry unit. patient's condition, and will see patient in ED. ED course: pt's temp went up upon reevaluation, CT ordered and was normal. BP went down while awaiting CT results. Lactate, blood cultures, antibiotics and fluids ordered. Pt is a dialysis pt with CHF so sepsis bolus was not given. Pt is awake, alert and oriented. Central line being placed by Nando at this time. . 15:41 Counseling: I had a detailed discussion with the patient and/or guardian regarding: the historical points, exam findings, and any diagnostic results supporting the discharge/admit diagnosis, lab results, radiology results, the need for further work-up and treatment in the hospital. 15:50 Physician consultation: Chandler Bautista in the emergency department to see patient at 15:50. 15:54 ED course: Dr Bautista wants only 500ml bolus given at this time. kb 16:31 ED course: Dr Bautista and I were at bedside, pt was arousable, answering questions, kb complaining of abd pain then became unresponsive. Code initiated. Pt began arms and talking to us while preparing for intubation. See nurses notes for code notes. 16:39 ED course: sepsis reevaluation complete. kb 12/05 09:18 Order name: CBC with Diff; Complete Time: 11:29 kb 12/05 09:18 Order name: CMP; Complete Time: 11:21 kb 12/05 09:18 Order name: Lipase; Complete Time: 11:21 kb 12/05 09:43 Order name: Flu; Complete Time: 12:26 kb 12/05 09:43 Order name: COVID-19 SARS RT PCR (Document "Date of Onset" if Symptomatic); Complete kb Time: 12:36 12/05 10:41 Order name: CBC Smear Scan; Complete Time: 11:29 EDMS 12/05 13:58 Order name: CT Abd/Pelvis - Without Contrast; Complete Time: 14:45 kb 12/05 14:51 Order name: AMMONIA; Complete Time: 16:54 ph 12/05 14:54 Order name: Glucose, Ancillary Testing; Complete Time: 14:54 EDMS 12/05 14:56 Order name: BNP; Complete Time: 16:54 kb 12/05 14:56 Order name: Troponin HS; Complete Time: 16:54 kb 12/05 14:57 Order name: Lactate; Complete Time: 16:54 kb 12/05 14:57 Order name: Blood Culture Adult (2) kb 12/05 18:21 Order name: ABG; Complete Time: 19:18 ma2 12/05 14:46 Order name: Chest Single View XRAY; Complete Time: 17:04 kb 12/05 17:13 Order name: CXR XRAY; Complete Time: 17:40 eb 12/05 18:15 Order name: XRAY Chest (1 view); Complete Time: 19:13 holman 12/05 09:18 Order name: IV Saline Lock; Complete Time: 10:34 kb 12/05 09:18 Order name: Labs collected and sent; Complete Time: 10:34 kb 12/05 10:16 Order name: Labs - recollect needed: recollect green and lavender hemolyzed; Complete eb Time: 10:33 12/05 13:51 Order name: Vital Signs: recheck temp; Complete Time: 14:02 kb 12/05 14:46 Order name: EKG; Complete Time: 14:47 kb 12/05 14:46 Order name: EKG - Nurse/Tech; Complete Time: 19:26 kb Administered Medications: 10:33 Drug: Ativan (LORazepam) 1 mg Route: IVP; Site: left upper arm; holman 10:34 Follow up: Response: No adverse reaction holman 10:33 Drug: Zofran (Ondansetron) 4 mg Route: IVP; Site: left upper arm; holman 10:34 Follow up: Response: No adverse reaction holman 10:33 Drug: Reglan (metoCLOPramide) 10 mg Route: IVP; Site: left upper arm; holman 10:34 Follow up: Response: No adverse reaction holman 10:34 Drug: Benadryl (diphenhydrAMINE) 12.5 mg Route: IVP; Site: left upper arm; holman 10:34 Follow up: Response: No adverse reaction holman 12:55 Drug: Ketorolac 15 mg Route: IVP; Site: left upper arm; holman 12:56 Follow up: Response: No adverse reaction holman 12:56 CANCELLED (Physician Discretion): Dilaudid (HYDROmorphone) 1 mg IVP once holman 12:56 Drug: Zofran (Ondansetron) 4 mg Route: IVP; Site: left upper arm; holman 12:56 Follow up: Response: No adverse reaction holman 14:02 Drug: Tylenol 1000 mg Route: PO; holman 14:04 Follow up: Response: No adverse reaction holman 15:53 Not Given (Duplicate Order): NS 0.9% 1000 ml IV at 1 bolus Per protocol; 1000 mL bolus kb 15:57 Drug: NS 0.9% 500 ml Route: IV; Rate: bolus; Site: right femoral; holman 16:36 Follow up: Response: No adverse reaction holman 16:56 Follow up: IV Status: Completed infusion holman 16:06 Drug: EPINEPHrine 0.1mg/mL 1:10,000 1 mg Route: IVP; Site: right femoral; ph 17:28 Follow up: Response: No adverse reaction holman 16:36 Drug: Cefepime 1 grams Route: IVPB; Rate: 200 ml/hr; Infused Over: 30 mins; Site: right holman femoral; 16:56 Follow up: IV Status: Completed infusion holman 16:37 Drug: NS 0.9% 1000 ml Route: IV; Rate: 1 bolus; Site: right femoral; holman 16:56 Follow up: IV Status: Completed infusion holman 16:58 Drug: EPINEPHrine 0.1mg/mL 1:10,000 1 mg Route: IVP; Site: right femoral; ph 17:28 Follow up: Response: No adverse reaction holman 17:08 Drug: Rocuronium 60 mg Route: IVP; Site: right antecubital; ph 17:29 Follow up: Response: No adverse reaction holman 17:08 Drug: Etomidate 20 mg Route: IVP; Site: right femoral; ph 17:29 Follow up: Response: No adverse reaction holman 17:28 Drug: vancoMYCIN 1 grams Route: IVPB; Infused Over: 2 hrs; Site: right femoral; holman 20:05 Follow up: Response: No adverse reaction; IV Status: Completed infusion; IV Intake: as6 250ml 19:17 Drug: Sodium Bicarbonate 1 amp Route: IVP; Site: right femoral; as6 20:07 Follow up: Response: No adverse reaction as6 19:18 Drug: Sodium Bicarbonate 1 amp Route: IVP; Site: right femoral; as6 20:07 Follow up: Response: No adverse reaction as6 19:22 Drug: Calcium Chloride 1 grams Route: IVP; Site: right femoral; as6 20:07 Follow up: Response: No adverse reaction as6 20:06 Not Given (Other Intervention Used): Vasopressin 0.02 units/min IV at calculated rate as6 continuous Disposition: 18:23 Co-signature as Attending Physician, Jose De Jesus Graf MD Discussed with hospitalist Dr. johnson Bautista, and dba manager Dr. Finney, given the patient condition and hypertension, patient is having cardiogenic shock, she would benefit from transfer to higher level of care to CCU with heart failure unit, initiated transfer to [facility], accepted by dba manager Dr. Lugo. Disposition Summary: 12/05/21 18:53 Transfer Ordered Transfer Location: [facility] kb Reason: Higher level of care kb Condition: Critical(12/05/21 18:53) kb Problem: new(12/05/21 18:53) kb Symptoms: are unchanged(12/05/21 18:53) kb Accepting Physician: Tom(12/05/21 20:11) lp1 Diagnosis - Cardiogenic shock kb Forms: - Medication Reconciliation Form kb - SBAR form kb Signatures: Dispatcher [employer] EDMS Milvia Sanders, HORSE SHOW MANAGER-C HORSE SHOW MANAGER-Ckb Nando Farrell PA PA jmm Williams, Irene, RN RN iw Hollie Tomas RN RN lp1 Darleen Tucker RN RN Jose De Jesus Graf MD MD ma2 Marquita Lazaro Ashby, RN RN as6 Bailee Arias RN RN holman Corrections: (The following items were deleted from the chart) 12:56 12:39 Dilaudid (HYDROmorphone) 1 mg IVP once ordered. holman holman 12:57 09:13 Allergies: Ibuprofen; iw holman 15:34 12:36 Counseling: I had a detailed discussion with the patient and/or guardian kb regarding: the historical points, exam findings, and any diagnostic results supporting the discharge/admit diagnosis, lab results, the need for outpatient follow up, a family practitioner, to return to the emergency department if symptoms worsen or persist or if there are any questions or concerns that arise at home, kb 18:52 15:42 Inpatient Admission kb kb 18:52 15:42 Lily Chandler kb kb 18:52 15:42 Telemetry/MedSurg (Inpatient) kb kb 18:52 15:42 Stable kb kb 18:52 15:42 new kb kb 18:52 15:42 are unchanged kb kb 18:52 15:42 Standard kb kb 18:52 15:42 kb kb 18:52 15:42 Fever, unspecified kb kb 18:52 15:42 Sepsis, unspecified organism kb kb 20:11 18:53 Tom alcantara lp1
[2021-12-05] MEDS ORDERED: NOREPINEPHRINE 4mg/D5W 250mL 4 MG/250 ML BAG IV ONE (16:06)
[2021-12-05] MEDS ORDERED: RSI MEDICATION KIT IV ONE (16:17)
[2021-12-05] MEDS ORDERED: NA CHLORIDE 0.9% 500 ML ONE (16:18)
[2021-12-05] MEDS ORDERED: CEFEPIME 1 GM/VIAL ONE (16:18)
[2021-12-05] MEDS ORDERED: VANCOMYCIN 1 GM/VIAL ONE (16:18)
[2021-12-05] MEDS ORDERED: VASOPRESSIN 80 UNIT in NA CHLORIDE 0.9% 250 ML IV PRN (16:40)
[2021-12-05 16:44] LABS: Troponin High Sensitivity 38.4 pg/mL (<58.9)
[2021-12-05] MEDS ORDERED: ALBUMIN HUMAN 25% 200 ML IV ONE (17:00)
--- NOTE | 2021-12-05 17:01 | RAD REPORT ---
EXAM DESCRIPTION: RAD - Chest Single View - 12/05/2021 4:39 pm CLINICAL HISTORY: PAIN COMPARISON: Chest Single View dated 08/20/2021; Chest Single View dated 08/08/2021; Chest Single View d ated 07/30/2021; Chest Single View dated 06/30/2021; Abdomen Pelvis Wo Contrast dated 12/05/2021 FINDINGS: Lines: None. Lungs: Low lung volumes which accentuates the pulmonary vasculature. Pleural: Well effusions not identified on the frontal radiograph. Cardiac: Cardiomegaly Bones: No acute fractures. Other: Vascular stent overlying the right scapula. IMPRESSION: Low lung volumes and pulmonary edema.
[2021-12-05] MEDS ORDERED: EPINEPHrine 4 MG in NA CHLORIDE 0.9% 250 ML IV SCH (17:15)
--- NOTE | 2021-12-05 17:34 | RAD REPORT ---
EXAM DESCRIPTION: RAD - Chest Single View - 12/05/2021 5:20 pm CLINICAL HISTORY: intubation COMPARISON: Chest Single View dated 12/05/2021; Chest Single View dated 08/20/2021; Chest Single View d ated 08/08/2021; Chest Single View dated 07/30/2021 FINDINGS: Interval intubation. The endotracheal tube is angulated toward the right mainstem bronchus . Recommend retraction by 3 cm. IMPRESSION: Recommend retraction of the endotracheal tube by 3 cm. Discussed with Cathie Sanders in the ED at 1726 on 12/05/2021
[2021-12-05 18:58] LABS: Arterial Blood Carboxyhemoglob 1.5 % (0-1.5); Blood Gas Oxyhemoglobin 96.6 % (94-97); Blood O2 Saturation 99.4 % (92-98.5)
--- NOTE | 2021-12-05 19:03 | RAD REPORT ---
EXAM DESCRIPTION: RAD - Chest Single View - 12/05/2021 6:45 pm CLINICAL HISTORY: NG tube place,ment COMPARISON: Chest Single View dated 12/05/2021; Chest Single View dated 12/05/2021; Chest Single View dated 08/20/2021; Chest Single View dated 08/08/2021hest Single View dated 12/05/2021; Chest Single View dated 12/05/2021; Chest Single View dated 08/20/2021; Chest Single View dated 08/08/2021; Abdomen Pelv is Wo Contrast dated 12/05/2021 IMPRESSION: NG tube tip overlies the stomach in satisfactory position. Endotracheal tube is not well visualized and may not be included in the field of view.
[2021-12-05] MEDS ORDERED: SODIUM BICARB 50 MEQ/50ML VIAL ONE (19:13)
[2021-12-05 20:38] VITALS: TEMP 100.2
[2021-12-05 20:55] VITALS: BP 127/81; O2SAT 99
--- NOTE | 2021-12-08 11:56 | EKG ---
Test Date: 2021-12-05 Test Time: 16:12:48 Manager Strategic [employer]iances: NGUYEN MEASUREMENT RESULTS: Intervals: Rate: 104 OH: 158 QRSD: 88 QT: 360 QTc: 473 [place]: P: 57 [place]: 158 QRS: 61 T: 68 INTERPRETIVE STATEMENTS: Sinus tachycardia Otherwise normal ECG Compared to ECG 12/05/2021 14:51:21 Sinus rhythm no longer present ST (T wave) deviation no longer present Electronically Signed On 12-08-21 11:50:51 CDT by Juan Hogan
--- NOTE | 2021-12-08 11:56 | EKG ---
Test Date: 2021-12-05 Test Time: 16:45:43 Furnace Setter: MB MEASUREMENT RESULTS: Intervals: Rate: 112 [place]: QRSD: 92 QT: 374 QTc: 510 [place]: P: DE: QRS: 90 T: 64 INTERPRETIVE STATEMENTS: Accelerated Junctional rhythm with retrograde conduction Rightward axis Abnormal ECG Compared to ECG 12/05/2021 16:12:48 Accelerated junctional rhythm now present Right-axis deviation now present Sinus tachycardia no longer present Electronically Signed On 12-08-21 11:50:48 CDT by Juan Hogan
--- NOTE | 2021-12-08 11:56 | EKG ---
Test Date: 2021-12-05 Test Time: 16:44:52 Private Tutors And Teachers: MB MEASUREMENT RESULTS: Intervals: Rate: 71 [place]: QRSD: 88 QT: 430 QTc: 467 [place]: P: 62 IA: QRS: 77 T: 61 INTERPRETIVE STATEMENTS: Sinus tachycardia with 2nd degree AV block (Mobitz I) Abnormal ECG Compared to ECG 12/05/2021 16:12:48 No significant changes Electronically Signed On 12-08-21 11:50:49 CDT by Jaun Hogan
--- NOTE | 2021-12-08 11:57 | EKG ---
Test Date: 2021-12-05 Test Time: 14:50:49 Analytical Clerk: JAYDE MEASUREMENT RESULTS: Intervals: Rate: 89 SD: QRSD: 92 QT: 364 QTc: 442 [place]: P: 39 SD: QRS: 87 T: 41 INTERPRETIVE STATEMENTS: Sinus rhythm with 2nd degree AV block (Mobitz I) Nonspecific ST abnormality Abnormal ECG Compared to ECG 10/08/2021 10:07:05 ST (T wave) deviation now present Electronically Signed On 12-08-21 11:51:09 CDT by Juan Hogan
--- NOTE | 2021-12-08 11:57 | EKG ---
Test Date: 2021-12-05 Test Time: 14:51:21 Glass Deposition Tender: JAYDE MEASUREMENT RESULTS: Intervals: Rate: 69 [place]: QRSD: 92 QT: 384 QTc: 411 [place]: P: 57 [place]: QRS: 87 T: 39 INTERPRETIVE STATEMENTS: Sinus rhythm with 2nd degree AV block (Mobitz I) Nonspecific ST abnormality Abnormal ECG Compared to ECG 12/05/2021 14:50:49 No significant changes Electronically Signed On 12-08-21 11:51:08 CDT by Juan Hogan
--- NOTE | 2021-12-08 11:58 | EKG ---
Test Date: 2021-12-05 Test Time: 14:50:06 Solar Panel Installer: JAYDE MEASUREMENT RESULTS: Intervals: Rate: 98 AL: 220 QRSD: 92 QT: 364 QTc: 464 [place]: P: 47 AL: 220 QRS: 88 T: 40 INTERPRETIVE STATEMENTS: Sinus rhythm with 1st degree AV block Possible Left atrial enlargement Nonspecific ST abnormality Abnormal ECG Compared to ECG 10/08/2021 10:07:05 First degree AV block now present ST (T wave) deviation now present Electronically Signed On 12-08-21 11:51:10 CDT by Juan Hogan
== END 2021-12-05 20:11 | disposition short-term general hospital (02) ==
LOC: ER 08:55
PROC: 06HM33Z Insertion of Infusion Device into Right Femoral Vein, Percutaneous Approach (ICD-10-PCS; principal; 2021-12-05)
DX: R57.0 Cardiogenic shock (principal); E11.22 Type 2 diabetes mellitus with diabetic chronic kidney disease; I13.2 Hypertensive heart and chronic kidney disease with heart failure and with stage 5 chronic kidney disease, or end stage renal disease; N18.6 End stage renal disease; I50.9 Heart failure, unspecified; K31.84 Gastroparesis; Z99.2 Dependence on renal dialysis; Z20.822 Contact with and (suspected) exposure to COVID-19; Z88.0 Allergy status to penicillin; Z88.5 Allergy status to narcotic agent; Z88.8 Allergy status to other drugs, medicaments and biological substances
CPT/HCPCS: 87040 ×2; 85025; 36415; 82140; 82947; 83605; 84484; 83690; 80053; 83880; 87804 ×2; 74176; 71045 ×3; 94002; 82805; 31500; 92950; 99291; 99292; 36556; U0003; J2765; J1200; J3370; J0171; P9047; J7050 ×3; J7030 ×2; J2405 ×3; J0692; 93005; J1170

== ENCOUNTER 2022-03-15 16:45 | Emergency (ER) | payer OTHER ==
--- OUTSIDE RECORDS SUMMARY | 2022-03-15 17:10 | XMS REPORT | Continuity of Care Document ---
:1980 Author Organization [facility] t Address [address] [place] [address] Care Team Providers Name Role Phone SHARPLESS Primary Care Physician Unavailable Guillaume_Dinah Attending Clinician Unavailable Jose Miguel Morin DO Attending Clinician Rosy BURNS, Brooke Ricci Attending Clinician [phone] Bessie Peace Attending Clinician [phone] Forrest Cruz Attending Clinician Unavailable Melany Gilbert Attending Clinician Pat BURNS, Rajeeb K. Attending Clinician Isra BURNS, Rachel Lew Attending Clinician [phone] Robe BURNS, Holden Elmore Attending Clinician Magaly BURNS, Shanda Higuera Attending Clinician Endy BURNS, Aurelio Attending Clinician Alesia Dodd Attending Clinician Joe BURNS, Mando Raphael Attending Clinician [phone] Jose Carlos BURNS, Veto Vincent Attending Clinician Pati BURNS, Juwan Attending Clinician Doc BURNS, Sofi Juárez Attending Clinician [phone] Robert MAYS, Gayle Attending Clinician Unavailable Luciana BURNS, Frankie Baig Attending Clinician Chandler Silverman Attending Clinician MD RACHEL BRASHER Attending Clinician Unavailable MD SHANDA SHAHID Attending Clinician Unavailable Adelita SAPP, Leah Attending Clinician Unavailable Ba Attending Clinician Unavailable Tam MAYS, Maria M Attending Clinician Unavailable Anila Boles MA Attending Clinician Unavailable Sheikh KATY, Kye Attending Clinician August BURNS, Marilu Sheridan Attending Clinician Sukhjinder Medina MD Attending Clinician Hanane Hernandes Attending Clinician MD JUWAN YOU Attending Clinician Unavailable Corin MAYS, Elodia Attending Clinician Unavailable Doctor Unassigned, [place] Attending Clinician Unavailable Monisha Bajwa Attending Clinician MONISHA BAJWA Attending Clinician Unavailable Alexandr Diane MD Attending Clinician Marvin Wright Attending Clinician MARVIN WRIGHT Attending Clinician Unavailable Lamin BURNS, Oz Doshi.H. Attending Clinician Carlos BURNS, Jose Luis Attending Clinician Earl Sanchez DO Attending Clinician Deja Clenaing DPM Attending Clinician [phone] OZ KIMBLE K.H. Attending Clinician Unavailable Rei Waldron Attending Clinician Unavailable Rei Waldron Attending Clinician Unavailable LY DORADO Attending Clinician Unavailable MOISE BHAKTA Attending Clinician Unavailable Luna Jamison Attending Clinician Joe Juáerz Attending Clinician Atul Valdez Attending Clinician Deshazo_T Admitting Clinician Unavailable RACHEL BRASHER Admitting Clinician Unavailable MD RACHEL BRASHER Admitting Clinician Unavailable Adams_R Admitting Clinician Unavailable KYE BARBER Admitting Clinician Unavailable MD JUWAN YOU Admitting Clinician Unavailable Marvin Wright Admitting Clinician MARVIN WRIGHT Admitting Clinician Unavailable Rei Waldron Admitting Clinician Unavailable MOISE BHAKTA Admitting Clinician Unavailable Danae Cha Admitting Clinician Joe Juárez Admitting Clinician Payers Payer Name Policy Type Policy Number Effective Date Expiration Date S karla [employer] [id number] 2020 00:00:00 MEDICARE PART A AND [id number] 2014 B 00:00:00 [employer] [id number] 2021 (MEDICARE 00:00:00 REPLACEMENT HMO) MEDICARE A B [id number] 2014 00:00:00 [place]ICAID [place] [id number] 2016 00:00:00 Problems Condition Condition Condition Status Onset Resolution Last Treating Co mments Source Name Details Category Date Date Treatment Clinician Date AVF AVF Disease Active Univers (arteriove (arteriove 9-29 it y of nous nous 00:00: [place] fistula) fistula) 00 Medica l Branch End [...] syndrome syndrome 00:00: (IBS) (IBS) 00 GASTROPARE GASTROPAR Diagnosis Active 2021-02-10 Memoria HELENA/IBS-D ESISI/IBS- 01-03 21:41:00 l /ANEMIA D/ANEMIA 00:00: Vin Active 01/03/2021 [facility] NEW NEW Diagnosis Active 2020-12-24 Mem oria PATIENT GI PATIENT GI 10-14 10:39:00 l CONSULT CONSULT 00:00: Vin REFRACTORY REFRACTORY 00 GASTRO GASTRO Active 10/14/2020 [facility] Malfunctio Malfunctio Disease Active Overview : Univers n of n of 6-03 Formattin ity of arterioven arterioven 00:00: g of this [place] ous ous 00 note Medical dialysis dialysis might be Bran ch fistula, fistula, different initial initial from the encounter encounter original. Added automatic ally from request for surgery [id number] Candidiasi Candidiasi Disease Active U nivers s of vulva s of vulva 2-18 it y of and vagina [place] Screening Screening Disease Active Uni vers for breast for breast 2-18 it y of cancer cancer 00:00: [place] 00 Medical Branch NEW NEW Diagnosis Active 2018-07-26 Mem oria EVALUATION EVALUATION - 09:39:00 l Active 00:00: Vin 07/12/2018 [facility] Pyogenic Pyogenic Disease Active 2017-06 Overview: Un lori granuloma granuloma 0-17 Formattin i ty of of of 00:00: g of this [place] conjunctiv conjunctiv 00 note Me dical a, right a, right might be Bran ch different from the original. Added automatic ally from request for surgery [id number] Right eye Right eye Disease Active Overview: Univers affected affected 9-04 Formattin ity of by by 00:00: g of this [place] proliferat proliferat 00 note Me dical montse montse might be Branch diabetic diabetic different retinopath retinopath from the y with y with original. traction traction Added retinal retinal automatic detachment detachment ally from not not request involving involving for macula, macula, surgery associated associated [id number] with type with type 1 diabetes 1 diabetes mellitus mellitus Pain Pain Disease Active Univers management management 01-18 it y of 00:00: [place] 00 Medical Branch Blind Blind Disease Active Overview: Univer s painful painful 12-16 Formattin ity o f eye eye 00:00: g of this 00 note Medical might be Branch different from the original. Eviscerat ion OS on 8 - Dr. 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 Added automatic ally from request for surgery [id number] ESRD (end ESRD (end Disease Active Overview: Univers stage stage -12 Formattin ity of renal renal 00:00: g of this [place] disease) disease) 00 note Medica l on on might be Branch dialysis dialysis different from the original. Added automatic ally from request for surgery [id number] Diabetes Diabetes Disease Active Metho di mellitus mellitus 11-12 st 00:00: Hospita 00 l LUQ pain LUQ pain Disease Active Unive rs 2-05 ity of 00:00: 00 Medical Branch Glaucoma Glaucoma Disease Active Overview: Un lori due to due to 07-22 Formattin ity of silicone silicone 00:00: g of this [place] as oil oil 00 note Medical might be Branch different from the original. Added automatic ally from request for surgery [id number] Neovascula Neovascula Disease Active U nivers r r 1-18 ity of glaucoma, glaucoma, [place] left [place] left eye [place] Medica l Branch Increased Increased Disease Active Uni vers intraocula intraocula 1-18 it y of r pressure r pressure [place] Fall Fall Disease Active 2016-06 Univers 0-13 ity of 00:00: [place] [address] Medical Branch Pneumonia Pneumonia Disease Active 2016-06 Uni vers 0-11 ity of 00:00: [place] [address] Medical Branch Diabetes Diabetes Disease Active 2016-06 Overview: Un lori mellitus mellitus 0-05 Formattin ity of 00:00: g of this [place] 00 note Medical might be Branch different from the original. Added automatic ally from request for surgery [id number] Pseudotumo Pseudotumo Disease Active U nivers r cerebri r cerebri 9-25 ity of 00:00: [address] Branch Liver Liver Disease Active [facility] failure[facility] SANJUANA (acute SANJUANA (acute Disease Active [facility] kidney kidney 7-16 [facility] injury) injury) 00:00: Medical 00 Center CKD CKD Disease Active [facility] (chronic (chronic 7-16 [facility] kidney kidney 00:00: Medical disease) disease) 00 Center Acute Acute Disease Active [facility] encephalop encephalop 7-16 Pati kes athy athy 00:00: Medical 00 Center Ulcer of Ulcer of Disease [facility] toe [facility] toe [facility] left foot left foot 00:00: [facility] tawnya 00 Center Peripheral Peripheral Disease Active [facility] neuropathy neuropathy 7-16 Pati kes 00:00: Medical 00 Center Hyperglyce Hyperglyce Disease Active [facility] 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 7-16 Pati kes type 2 type 2 00:00: Medical diabetes diabetes 00 Center mellitus mellitus Gastropare Gastropare Disease Active [facility] sis due to sis due to 7-16 Pati kes DM DM 00:00: Medical 00 Center Cyclic Cyclic Disease Active [facility] vomiting vomiting 7[facility]16 [facility] syndrome syndrome 00:00: Medica l 00 Center Anxiety Anxiety Disease Active [facility] 7[facility]16 [facility] Bipolar Bipolar Disease Active [facility] disorder disorder 7[facility]16 [facility] Center Hypertensi Hypertensi Disease Active [facility] ve ve 7-16 [facility] emergency emergency 00:00: Medi tawnya 00 Center ACUTE RESP ACUTE Diagnosis Active 2016-09-09 Memoria FAILURE RESP 2-02 09:11:00 l FAILURE 00:00: Vin Active 00 07/23/2016 [facility] CONGESTION Diagnosis Active 2016-07-24 Memoria AMD CONGESTION 07-23 01:49:00 l DIARRHEA AMD 00:00: Vin DIARRHEA 00 Active 07/23/2016 [facility] Congestive Congestive Disease Active 2015-06 U T heart heart 08-11 Health failure failure 00:00: (CHF) (CHF) 00 SOB/SWELLI SOB/SWELL Diagnosis Active 2015-062016-06-10 Memoria NG ING Active 08-11 15:48:00 l 06/10/2016 00:00: Jake n [address] CHF/RENAL Diagnosis Active 2015-062016-06-24 [facility]oria DISEASE CHF/RENAL 08-11 15:35:00 l DISEASE 00:00: Vin Active 00 06/10/2016 [facility] Obesity Obesity Disease Active 2015-06 Univers (BMI (BMI 0-12 ity of 30-39.9) 30-39.9) 00:00: [place] [address] Medical Branch Hyperosmol Hyperosmol Disease Active 2015-06 U viviana ar ar 0-12 ity of non-ketoti non-ketoti [place] in c state in 00 Me dical patient patient Branch with 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 Hyperglyce Hyperglyce Disease Active 2015-06 U viviana maryam maryam 0-11 ity of 00:00: [place] [address] Medical Branch Diabetic Diabetic Disease Active Unive rs ulcer of ulcer of 5-07 ity of both feet both [place] 00:[place] associated associated 00 Me dical with type with type Bran ch 2 diabetes 2 diabetes mellitus mellitus SANJUANA (acute ASNJUANA (acute Disease Active U viviana kidney kidney 5-07 ity of injury) injury) 00:00: [place] [address] Medical Branch Depression Depression Disease Active U jessicaers 5-07 ity of 00:00: [place] [address] Medical Branch Bipolar 1 Bipolar 1 Disease Active Uni vers disorder disorder 5-07 ity of 00:00: [place] [address] Medical Branch Suicidal Suicidal Disease Active Unive rs ideation ideation 5-05 ity of 00:00: [place] [address] Medical Branch Diabetes Diabetes Disease Active Unive [...] 00:00: [place] cancer in cancer in 00 [facility] tawnya female female Branch Family Family Disease Active 2014-06 Univers history of history of 1-13 it y of ovarian ovarian 00:00: [place] cancer cancer 00 Medical Branch Galactorrh Galactorrh Disease Active 2014-06 U viviana ea ea 1-13 ity of 00:00: [place] 00 Medical Branch History of History of Disease Active 2014-06 U viviana tubal tubal 1-13 ity of ligation ligation 00:00: [place] [facility] Excessive Excessive Disease Active 2014-06 Uni vers or or 1-13 ity of frequent frequent 00:00: [place] menstruati menstruati 00 Me dical on on Branch Tobacco Tobacco Disease Active 2014-06 Univers use use 1-13 ity of disorder disorder 00:00: [place] 00 Medical Branch ABDOMINAL ABDOMINAL Diagnosis Active 2014-06-26 Memoria PAIN, PAIN, 06-26 05:44:00 l SEIZURES SEIZURES 00:00: Jake gonzalez Active 00 06/26/2013 [facility] ABD PAIN ABD PAIN Diagnosis Active 2012-062013-04-19 Memoria Active 0 21:51:00 l 04/14/2013 19:00: Jake gonzalez [facility] GASTROPERI Diagnosis Active 2012-09-13 Memoria SIS GASTROPERI - 15:17:00 l SIS Active 00:00: Jake gonzalez 08/02/2012 00 [facility] ABDOMINAL ABDOMINAL Diagnosis Active 2012-03-14 Memoria PAIN PAIN 03-14 16:56:00 l Active 14:00: [place] 03/14/2012 00 [facility] NAUSEA, NAUSEA, Diagnosis Active 2012-03-14 Memoria VOMITING VOMITING 03-14 13:25:00 l Active 08:00: [place] 03/14/2012 00 [facility] N/V N/V Diagnosis Active 2011-12-08 Mem oria INABILITY INABILITY 11-27 11:14:00 l TO TO 00:00: Vin TOLERATE TOLERATE 00 PO PO Active 11/28/2011 [facility] VOMITTING Diagnosis Active 2011-11-28 Memoria VOMITTING 11-27 16:28:00 l Active 00:00: [place] 11/28/2011 00 [facility] VOMITTING, VOMITTING Diagnosis Active 2011-09-18 Memoria HIGH BLOOD , HIGH 09-17 09:45:00 l SUGAR BLOOD 00:00: [place] SUGAR 00 Active 09/18/2011 [facility] Methicilli Methicill Problem Active 2021-01-31 Memoria n in 08-31 22:29:25 l resistant resistant 00:00: Herm naeem Staphyloco Staphyloco 00 ccus ccus aureus aureus (organism) (organism) Active 09/01/2011 Problem 01/31/2021 09/01/11 - Elbow woundProbl em added by Discern Expert. [facility] MRSA MRSA Problem Active 2012-03-16 Memor ia Active 08-31 09:11:30 l 09/01/2011 00:00: Jake n Problem 00 03/16/2012 - Elbow [id number] emily added by Discern Expert. [facility] VOMITING, VOMITING, Diagnosis Active 2011-09-01 Memoria BLOOD BLOOD 08-30 03:19:00 l SUGAR SUGAR 00:00: [place] READINGS READINGS 00 HIGH HIGH Active 08/31/2011 [facility] ELBOW ELBOW Diagnosis Active 2011-09-10 Mem oria ABSCESS/HY ABSCESS/HY 08-30 16:26:00 l PERGLYCEMI PERGLYCEMI 00:00: Tyrel canales A A Active 00 08/31/2011 [facility] Hypokalemi Hypokalem Problem Active 2012-03-16 Memoria a ia Active 08-22 09:11:30 l 08/23/2011 00:00: Jake n Problem 00 03/16/2012 [facility] DKA DKA Diagnosis Active 2011-08-24 Mem oria Active 11:27:00 l 08/19/2011 00:00: Jake gonzalez [address] VOMITING VOMITING Diagnosis Active 2011-08-19 Memoria Active 16:21:00 l 08/19/2011 00:00: Jake gonzalez [address] Final: Final: Problem 2016-08-02 [place] janice Acute Acute 02:46:22 l respirator respirator He rmann y failure, y failure, unspecifie unspecifie d whether d whether with with hypoxia or hypoxia or hypercapni hypercapni a a 08/02/2016 [facility] Hypoglycem Hypoglyce Problem Inactiv 2012-03-16 Memoria ia maryam e 09:11:30 l Inactive [place] Problem 03/16/2012 [facility] Hypoglycem Hypoglyce Problem Inactiv 2013-04-22 Memoria ia maryam e 04:46:33 l (disorder) (disorder) He rmann Inactive Problem 04/22/2013 [facility] Gastropare Gastropar Problem Resolve 2021-01-31 Memoria sis esis d 22:29:25 l (disorder) (disorder) He rmann Resolved Problem 01/31/2021 [facility] Hypertensi Hypertens Problem Resolve 2021-01-31 Memoria ve montse d 22:29:25 l disorder, disorder, Herm naeem systemic systemic arterial arterial (disorder) (disorder) Resolved Problem 01/31/2021 [facility] Psychiatri Psychiatr Problem Resolve 2021-01-31 Memoria c ic d 22:29:25 l behavioral behavioral He rmann disability disability (finding) (finding) Resolved Problem 01/31/2021 [facility] Seizure Seizure Problem Resolve 2021-01-31 M emoria (finding) (finding) d 22:29:25 l Resolved Vin Problem 01/31/2021 [facility] Hypertensi Problem Active 2012-03-16 M emoria on Hypertensi 09:11:30 l on Active Vin Problem 03/16/2012 [facility] Hypomagnes Hypomagne Problem Active 2013-04-22 Memoria emia semia 04:46:33 l Active Vin Problem 04/22/2013 [facility] Nausea and Nausea Problem Active 2012-03-16 Memoria vomiting and 09:11:30 l vomiting [place] Active Problem 03/16/2012 [facility] ENCNTR FOR ENCNTR Diagnosis Active 2020-12-24 Memoria GENERAL FOR 10:39:00 l ADULT GENERAL Vin MEDICAL ADULT EXAM W/ MEDICAL EXAM W/ Active [facility] DMI DMI Diagnosis Active 2011-08-24 Mem oria KETOACD KETOACD 11:27:00 l UNCONTROLD UNCONTROLD He rmann Active [facility] OTHER OTHER Diagnosis Active 2011-09-10 Mem oria GENERAL GENERAL 16:26:00 l SYMPTOMS SYMPTOMS Jake n Active [facility] HEART HEART Diagnosis Active 2016-06-24 Mem oria FAILURE, FAILURE, 15:35:00 l UNSPECIFIE UNSPECIFIE He ally D D Active [facility] ACUTE ACUTE Diagnosis Active 2016-09-09 Me moria RESPIRATOR RESPIRATOR 09:11:00 l Y FAILURE, Y FAILURE, He ally UNSP W UNSP W HYPOXI HYPOXI Active [facility] Nausea and Nausea Problem Resolve 2021-01-31 2021-01-31 Memoria vomiting and d 6- 22:29:25 22:29:25 l (disorder) vomiting 00:00: Herm naeem (disorder) 00 Resolved 11/29/2011 Problem 01/31/2021 [facility] Hypokalemi Hypokalem Problem Resolve 2021-01-31 2021-01-31 Memoria a ia d 08-22 22:29:25 22:29:25 l (disorder) (disorder) 00:00: He rmann Resolved 00 08/23/2011 Problem 01/31/2021 [facility] Disorder Disorder Problem Resolve 2021-01-31 2021-01-31 Memoria of of d 08-22 22:29:25 22:29:25 l magnesium magnesium 00:00: Herm naeem metabolism metabolism 00 (disorder) (disorder) Resolved 08/23/2011 Problem 01/31/2021 [facility] Hyperglyce Hyperglyc Problem Resolve 2021-01-31 2021-01-31 Memoria maryam emia d 3- 22:29:25 22:29:25 l (disorder) (disorder) 00:00: He rmann Resolved 00 08/20/2011 Problem 01/31/2021 [facility] Ketoacidos Ketoacido Problem Resolve 2021-01-31 2021-01-31 Memoria is in sis in d 22:29:25 22:29:25 l diabetes diabetes 00:00: Jake gonzalez mellitus mellitus 00 (disorder) (disorder) Resolved 08/19/2011 Problem 01/31/2021 [facility] DKA DKA Problem Resolve 2013-04-22 2013-04-22 Memoria (diabetic (diabetic d 04:46:33 04:46:33 l ketoacidos ketoacidos 00:00: He ally es) es) 00 Resolved 08/19/2011 Problem 04/22/2013 [facility] History of Past Illness Condition Condition Condition Status Onset Resolution Last Treating Co mments Source Name Details Category Date Date Treatment Clinician Date Discharge Discharge Problem 2014-06-28 2014-06-28 Memmarin Diagnosis: Diagnosis: 06-26 16:34:37 16:34:37 l Gastropare Gastropare 06:00: Tyrel canales sis sis 00 06/26/2014 06/28/2014 [facility] Hyperglyce Hyperglyc Problem Inactiv 2012-03-16 2012-03-16 Memoria maryam emia e 08-19 09:11:30 09:11:30 l Inactive 00:00: Vin 08/20/2011 00 Problem 03/16/2012 [facility] Allergies, Adverse Reactions, Alerts Allergy Allergy [...] 00:00: e 00 Cephalex Propensi Active Hives Method i in ty to 01-18 st [...] EH ANTOIN 01-03 MONOHYD/ 00:00: M-CRYST 00 Guaifene Propensi Active Other - See numbness Univers sin ty to comments 01-03 ity of adverse 00:00: [place] reaction 00 Medical s Branch GUAIFENE DRUG Active Other-Cmnt Univ ers SIN INGREDI 01-03 ity of 00:00: [place] 00 Medical Branch PENICILL Allergy Active High Sob [facility] INS 01-03 00:00: 00 ZOLPIDEM Allergy Active Other [facility] 01-03 00:00: 00 LISINOPR Allergy Active Other [facility] [place] 01-03 00:00: 00 GUAIFENE Allergy Active Other [facility] SIN 01-03 00:00: 00 Zolpidem Drug Active Other [...] Comments) 01-03 [facility] Nitrofur Allergy Active [...] C INGREDI 625 ity of TROMETHA 00:00: [place] MINE 00 Medical Branch Ketorola Allergy Active Swelling throatthr [place] c to 12-13 oatthroat Health Trometha substanc 00:00: mine e 00 [place] Propensi Active Swelling THROAT Meth frantz c ty to [address] Trometha adverse 00:00: Hospita mine reaction [...] Phenylep Allergy Active Other [place] hrine to 4 reaction( Health substanc 00:00: s): Hives e [...] Anaphylaxis 2010-06 U nivers ins ty to 227 ity of adverse 00:00: [place] reaction 00 Medical s Branch PENICILL Drug Active Anaphylaxis 2010-06 Uni vers INS Class 2- ity of 00:00: [place] 00 Medical Branch Penicill Propensi Active Shortness Of 2010-06 Airway Methodi ins ty to Breath 08-[address] adverse 00:00: her Hospita reaction [...] penicill Active Memori a ins ins l [place] codeine codeine Active Memoria l Vin morphine morphine Active Memori a l Vin lisinopr lisinopr Active Memori a il il l Vin Adhesive Adhesive Active Memori a Tape Tape l [place] Ambien Ambien Active Memoria l [place] Prolex Prolex Active Memoria DM DM l Vin penicill Drug Active [facility] lisinopr Drug Active [facility] Ambien Drug Active [facility] Prolixin Drug Active [facility] penicill Drug Active [facility] lisinopr Drug Active [facility] Ambien Drug Active [facility] Prolixin Drug Active [facility] Tape Other Active [facility] penicill Drug Active [facility] lisinopr Drug Active [facility] Ambien Drug Active [facility] Prolixin Drug Active [facility] codeine Drug Active [facility] penicill Drug Active [facility] lisinopr Drug Active [facility] Ambien Drug Active [facility] Prolixin Drug Active [facility] codeine Drug Active [facility] penicill Drug Active [facility] lisinopr Drug Active [facility] Ambien Drug Active [facility] Prolixin Drug Active [facility] penicill Drug Active [facility] lisinopr Drug Active [facility] Ambien Drug Active [facility] Prolixin Drug Active [facility] penicill Drug Active [facility] lisinopr Drug Active [facility] Ambien Drug Active [facility] Prolixin Drug Active [facility] Social History Social Habit Start Date Stop Date Quantity Comments Source History of tobacco Cigarette Smoker [facility] use [facility] Exposure to Yes [facility] SARS-CoV-2 (event) Hospit al Alcohol intake 2021-06-18 2021-06-18 Ex-drinker [facility] 00:00:00 00:00:00 (finding) Hospital Tobacco use and 2021-05-14 2021-05-14 Smokeless tobacco Me thodist exposure 00:00:00 00:00:00 non-user Hospital Cigarettes smoked 2021-05-14 2021-05-[address] [facility] current (pack per 00:00:00 00:00:00 Hospita l day) - Reported Cigarette 2021-05-14 2021-05-14 [facility] pack-years 00:00:00 00:00:00 Hospital Social History 2020-12-24 2020-12-24 [facility] fatou 15:49:37 15:49:37 Tobacco Comment 2017-11-12 2017-11-12 5 cigarettes per [facility]ist 00:00:00 00:00:00 day Hospital Sex Assigned At [birth year] [facility] 00:00:00 00:00:00 Hospital Smoking Status Start Date Stop Date Source Smokes tobacco daily 2021-05-14 00:00:00 [facility] Former smoker 2020-06-27 00:00:00 2020-06-27 00:00:00 [facility] Medications Ordered Filled Start Stop Current Ordering Indication Dosage Frequency Signature Comments Components Source Medication Medication Date Date Medication? Clinician (SIG) Name Name glipiZIDE Yes 5mg Take 5 mg Met hodi (GLUCOTROL) 1-[address] 5 MG tablet 13:02: daily. Hosp jo-ann 39 l calcium Yes 667mg [id number] Take 667 Methodi acetate 1-[id number] (PHOSLO) 13:02: 3D mouth 3 Hospit a 667 mg 39 (three) l capsule times a day with meals. Takes 7 pills with every meal and snack. Patient States meal or snack per day. sertraline 2022-0 Yes 50mg QD Take 50 mg M ethodi (ZOLOFT) 50 1-[address] MG tablet 13:02: daily. Hospit a 39 l furosemide 2-0 Yes 80mg Q.5D Take 80 mg M ethodi (LASIX) 80 1-[address] mg tablet 13:02: (two) Hospita 39 times a l day. folic 2022-0 Yes 800mg Take 800 [facility] acid/vit B [...] 13:02: daily. Hospita tablet 39 l busPIRone 2-0 Yes 15mg Q.5D Take 15 mg Me thodi (BUSPAR) 1-[address] 7.5 MG 13:02: (two) Hospita tablet 39 times a l day. 2 traZODone 2-0 Yes 150mg QD Take 150 Met hodi (DESYREL) 1-[address] 150 MG 13:02: mouth Hospita tablet 39 nightly. l calcium 2021-0 Yes 1334mg Q.[id number] Take 1,334 Methodi acetate,domingo 1-18 [id number] mg by s t sphat bind, 13:02: 3D mouth 3 Hos whit (Phoslyra) 39 (three) l 667 mg (169 times a mg day. calcium)/5 mL solution cyproheptad 2021-0 Yes 4mg Q.64232901 Take 4 mg Methodi ine 1-18 [id number] [address] mouth [address] (PERIACTIN) 13:02: 3D (three) Hos whit 4 mg tablet 39 times a l day as needed for allergies. buPROPion 2021-0 Yes 300mg QD Take 300 Met hodi XL 1-[address] (WELLBUTRIN 13:02: mouth Hospi ta XL) 300 MG 39 daily. l 24 hr tablet ascorbic 2021-0 Yes 500mg Q.69472035 Take 500 [facility]i acid, 1-[id number] vitamin C, 13:02: 3D mouth 3 Hosp jo-ann (ascorbic 39 (three) l acid with times a sia hips) day. 500 MG tablet clonAZEPAM 2021-0 Yes .5mg Take 0.5 Met hodi (KlonoPIN) 1-[address] 0.5 MG 13:02: mouth as Hospita tablet 39 needed for l anxiety. cyanocobala 2021-0 Yes 1000ug Q.5D Take 1,000 [...] 39 nightly. l calcium 2021-0 Yes 1334mg Q.50351132 Take 1,334 Methodi acetate,domingo 1-18 [id number] mg by s t sphat bind, 13:02: 3D mouth 3 Hos whit (Phoslyra) 39 (three) l 667 mg (169 times a mg day. calcium)/5 mL solution cyproheptad 2021-0 Yes 4mg Q.80232545 Take 4 mg Methodi ine 1-18 [id number] mouth [address] (PERIACTIN) 13:02: 3D (three) Hos whit 4 mg tablet 39 times a l day as needed for allergies. buPROPion 2021-0 Yes 300mg QD Take 300 Met hodi XL 1-[address] (WELLBUTRIN 13:02: mouth Hospi ta XL) 300 MG 39 daily. l 24 hr tablet ascorbic 2021-0 Yes 500mg Q.[id number] Take 500 Methodi acid, 1-[id number] vitamin C, 13:02: 3D mouth 3 Hosp jo-ann (ascorbic 39 (three) l acid with times a sia hips) day. 500 MG tablet clonAZEPAM 2021-0 Yes .5mg Take 0.5 Met hodi (KlonoPIN) 1-[address] 0.5 MG 13:02: mouth as Hospita tablet 39 needed for l anxiety. glipiZIDE 2021-0 Yes 5mg Take 5 mg Met hodi (GLUCOTROL) 1-[address] 5 MG tablet 13:02: daily. Hosp jo-ann 39 l calcium Yes 667mg Q.30308013 Take 667 Methodi acetate -[id number] (PHOSLO) 13:02: 3D mouth 3 Hospit a 667 mg 39 (three) l capsule times a day with meals. Takes 7 pills with every meal and snack. Patient States meal or snack per day. sertraline Yes 50mg QD Take 50 mg M ethodi (ZOLOFT) 50 -[address] MG tablet 13:02: daily. Hospit a 39 l furosemide Yes 80mg Q.5D Take 80 mg M ethodi (LASIX) [address] mg tablet 13:02: (two) Hospita 39 times a l day. folic Yes 800mg Take 800 [facility]i acid/vit B 1-[address] complex and 13:02: mouth Hospi ta C 39 daily. l (DIALYVITE 800 ORAL) apixaban 2020-06- No 10mg Q.5D Take 10 mg Me thodi (ELIQUIS) 5 - by mouth 2 s t mg tablet 18:13: 00:00 (two) Hospit a 51 :00 times a l day. Takes 10 mg in morning and 5 mg at night apixaban 2020-06- No 10mg Q.5D Take 10 mg Me thodi (ELIQUIS) 5 06-18 by mouth 2 s t mg tablet 18:13: 00:00 (two) Hospit a 51 :00 times a l day. Takes 10 mg in morning and 5 mg at night vancomycin 2020-06- No 750mg Q.[id number] Infuse 750 Methodi 750 mg in 07-08 [id number] mg into a [address] sodium 00:00: 05:59 3W venous Hospita chloride 00 :00 catheter 3 l 0.9% 250 mL (three) IVPB times a week for 19 days. Administer 3 times weekly in dialysis vancomycin 2020-06- No 750mg Q.28703874 Infuse 750 Methodi 750 mg in 07-08 [id number] mg into a [address] sodium 00:00: 05:59 3W venous Hospita chloride 00 :00 catheter 3 l 0.9% 250 mL (three) IVPB times a week for 19 days. Administer 3 times weekly in dialysis HYDROcodone 2020-06 No 1{tbl} Q6H Take 1 Methodi -acetaminop 06-[address] hen (NORCO) 00:00: 05:59 mouth Hosp jo-ann 5-325 mg 00 :00 every 6 l per tablet (six) hours as needed for severe pain for up to 5 days .acute pain. Max Daily Amount: 4 tablets HYDROcodone 2020-06 No [id number] 1{tbl} Q6H Take 1 Methodi -acetaminop 06-[address] hen (NORCO) 00:00: 05:59 mouth Hosp jo-ann 5-325 mg 00 :00 every 6 l per tablet (six) hours as needed for severe pain for up to 5 days .acute pain. Max Daily Amount: 4 tablets spironolact 2020-06 No 50mg QD Take 50 mg Methodi one 08-06 12-[address] (ALDACTONE) 10:21: 00:00 daily. Hos whit 50 MG 19 :00 l tablet spironolact 2020-06 No 50mg QD Take 50 mg Methodi one 08-06 12-[address] (ALDACTONE) 10:21: 00:00 daily. Hos whit 50 MG 19 :00 l tablet clopidogreL 2020-06 75mg QD Take 1 Met hodi (PLAVIX) 75 07-27 tablet (75 s t mg tablet 00:00: 05:59 mg total) Ho spita 00 :00 by mouth l daily for 30 days. clopidogreL 2020-06 No 75mg QD Take 1 Met hodi (PLAVIX) 75 07-27- tablet (75 s t mg tablet 00:00: 05:59 mg total) Ho spita 00 :00 by mouth l daily for 30 days. gabapentin 2020-06 300mg QD Take 1 Met hodi (NEURONTIN) 07-[address] 300 mg 00:00: 05:59 (300 mg Hospita capsule 00 :00 total) by l mouth daily for 30 days. sennosides- 2020-06 No 1{tbl} QD Take 1 M ethodi docusate 2-10 19-[address] sodium 00:00: 05:59 mouth Hospita (SENOKOT-S) 00 :00 nightly l 8.6-50 mg for 30 per tablet days. gabapentin 2020-06 No 300mg QD Take 1 Met hodi (NEURONTIN) 2-10 19-[address] 300 mg 00:00: 05:59 (300 mg Hospita capsule 00 :00 total) by l mouth daily for 30 days. sennosides- 2020-06 No 1{tbl} QD Take 1 M ethodi docusate 2-10 19-[address] sodium 00:00: 05:59 mouth Hospita (SENOKOT-S) 00 :00 nightly l 8.6-50 mg for 30 per tablet days. HYDROcodone 2020-06 No [id number] 2{tbl} Q8H Take 2 Methodi -acetaminop 2-05 12-13 tablets by s t hen (Telinet) 00:00: 05:59 mouth Hosp jo-ann 5-325 mg 00 :00 every 8 l per tablet (eight) hours as needed for severe pain for up to 7 days .acute pain. Max Daily Amount: 6 tablets HYDROcodone 2020-06 No [id number] 2{tbl} Q8H Take 2 Methodi -acetaminop 2-05 12-13 tablets by s t hen (Telinet) 00:00: 05:59 mouth Hosp jo-ann 5-325 mg 00 :00 every 8 l per tablet (eight) hours as needed for severe pain for up to 7 days .acute pain. Max Daily Amount: 6 tablets predniSONE 2020-06- No [id number] Take M ethodi (DELTASONE) 07-18 Prednisone s t 50 mg 00:00: 00:00 50mg 13 Hospita tablet 00 :00 hours, 7 l hours, and 1 hour prior to scheduled procedure on 05/19/2021 for contrast allergy prophylaxi s. predniSONE 2020-06- No [id number] Take M ethodi (DELTASONE) 07-18 12-05 Prednisone s t 50 mg 00:00: 00:00 50mg 13 Hospita tablet 00 :00 hours, 7 l hours, and 1 hour prior to scheduled procedure on 05/19/2021 for contrast allergy prophylaxi s. linaGLIPtin 2020-06 No 5mg QD Take 5 mg Methodi (TRADJENTA) 1-24 11-[address] 5 mg tablet 15:20: 00:00 daily. Hos whit 30 :00 l linaGLIPtin 2020-06 No 5mg QD Take 5 mg Methodi (TRADJENTA) 1-24 11-[address] 5 mg tablet 15:20: 00:00 daily. Hos whit 30 :00 l buPROPion 2020-06 No 150mg Take 150 Me thodi SR 1-24 11-[address] (WELLBUTRIN 15:19: 00:00 mouth Hosp jo-ann SR) 150 MG 17 :00 daily. l 12 hr tablet buPROPion 2020-06 No 150mg Take 150 Me thodi SR 1-24 11-[address] (WELLBUTRIN 15:19: 00:00 mouth Hosp jo-ann SR) 150 MG 17 :00 daily. l 12 hr tablet pantoprazol 2020-06 Yes 20mg Take 20 mg Univers e 0-03 by mouth ity of (PROTONIX) 11:08: daily. [place] 20 mg EC 01 Medical tablet Branch Cholecalcif 2020-06 Yes 5000U Take 5,000 Univers mansi, 0-03 Units by ity of Vitamin D3, 11:08: [place] 125 m[place] [facility] (5,000 Branch unit) tablet proMETHazin 2020-06 Yes 25mg Take 25 mg Univers e 25 mg 0-03 by mouth. ity of tablet 11:08: [place] [facility] aspirin 81 2020-06 Yes 81mg Take 1 Unive rs mg chewable 0-03 tablet by ity of tablet 11:08: mouth [place] 01 daily. Medical Branch divalproex 2020-06 Yes 500mg [...] by ity of hips 23:08: mouth 2 [place] (VITAMIN C) (two) Medical 1,000 mg times Branch tablet daily. metoprolol 2020-06 Yes 50mg Take 50 mg U nivers tartrate 50 0-01 by mouth ity of mg tablet 23:08: daily. [place] [address] Medical Branch folic 2020-06 Yes 800mg Take 800 Univers acid/vit B 0-01 mg by ity of complex and 23:08: mouth [place] C 36 daily. Medical (DIALYVITE Branch 800 ORAL) linagliptin 2020-06 Yes Take by Uni vers (TRADJENTA) 0-01 mouth. ity of 5 mg tablet 23:08: [address] Branch spironolact 2020-06 Yes 50mg Take 50 mg Univers one 50 mg 0-01 by mouth ity of tablet 23:08: daily. [address] Branch pravastatin 2020-06 Yes 40mg Take 40 mg Univers 40 mg 0-01 by mouth ity of tablet 23:08: daily. [address] Branch mv-mn/iron/ 2020-06 Yes 1{capsu Take 1 U nivers folic 0-01 le} capsule by ity of acid/herb 23:08: mouth [place] 190 daily. Medical (VITAMIN D3 Branch COMPLETE ORAL) SERTraline 2020-06 Yes 50mg Take 50 mg U nivers 50 mg 0-01 by mouth ity of tablet 23:08: daily. [address] Branch calcium 2020-06 Yes 667mg Take 667 Unive rs acetate 667 0-01 mg by ity of mg capsule 23:08: mouth 3 [place] (three) Medical times Branch daily with meals. cetirizine 2020-06 Yes 1{tbl} Take 1 Uni vers HCl/pseudoe 0-01 tablet by ity of phedrine 23:08: mouth [place] (ZYRTEC-D 36 daily. Medical ORAL) Branch furosemide 2020-06 Yes 40mg Take 40 mg U nivers 40 mg 0-01 by mouth 2 ity of tablet 23:08: (two) [place] [address] times Medical daily. Branch divalproex 2020-06 Yes [...] by ity of hips 23:08: mouth 2 [place] (VITAMIN C) 36 (two) Medical 1,000 mg times Branch tablet daily. metoprolol 2020-06 Yes 50mg Take 50 mg U nivers tartrate 50 0-01 by mouth ity of mg tablet 23:08: daily. [place] [address] Medical Branch folic 2020-06 Yes 800mg Take 800 Univers acid/vit B 0-01 mg by ity of complex and 23:08: mouth [place] C 36 daily. Medical (DIALYVITE Branch 800 ORAL) linagliptin 2020-06 Yes Take by Uni vers (TRADJENTA) 0-01 mouth. ity of 5 mg tablet 23:08: [address] Branch spironolact 2020-06 Yes 50mg Take 50 mg Univers one 50 mg 0-01 by mouth ity of tablet 23:08: daily. [address] Branch pravastatin 2020-06 Yes 40mg Take 40 mg Univers 40 mg 0-01 by mouth ity of tablet 23:08: daily. [address] Branch mv-mn/iron/ 2020-06 Yes 1{capsu Take 1 U nivers folic 0-01 le} capsule by ity of acid/herb 23:08: mouth [place] 190 36 daily. Medical (VITAMIN D3 Branch COMPLETE ORAL) SERTraline 2020-06 Yes 50mg Take 50 mg U nivers 50 mg 0-01 by mouth ity of tablet 23:08: daily. [address] Branch calcium 2020-06 Yes 667mg Take 667 Unive rs acetate 667 0-01 mg by ity of mg capsule 23:08: mouth 3 [place] 36 (three) Medical times Branch daily with meals. cetirizine 2020-06 Yes 1{tbl} Take 1 Uni vers HCl/pseudoe 0-01 tablet by ity of phedrine 23:08: mouth [place] (ZYRTEC-D 36 daily. Medical ORAL) Branch furosemide [...] As: Ultram) Simethicone No Notes: Mendoza janice 811 (Same as: l 01:36: Mylicon) Vin 00 epoetin Yes 2,000 unit Mendoza janice giovanny-epbx 8-10 = 1 mL, l 1999 19:37: IV, Vin units/mL 00 Q-M--, preservativ to be e-free given at injectable [...] 8-10 (Same as: l 17:35: Norvasc) Vin 00 Dextrose No 25 gm, 50 Mendoza janice 50% Syringe 8-10 mL, Route: l (D50W) 13:40: IVP, Drug Jake n 00 Form: INJ, Dosing Weight 74.5, kg, ONCE, Start date: 01/28/21 8:40:00 CDT, Stop date: 01/28/21 8:40:00 CDT, Dextrose 50%: 25 gm = 50 mL, 0 Epogen No Notes: Memoria 01-27 WASTE: F/P l 22:00: - Red; E [place] Red MEDICIATIO N WASTE Product Size: 2,000 unit Product Wasted: ____unit D5NS 1,000 No 1,000 mL, Me moria mL 01-27 Rate: 20 l 20:28: ml/hr, [place] 00 Infuse over: 50 hr, Route: IV, Dosing Weight 74.5 kg, Total Volume: 1,000, Start date: 01/27/21 15:28:00 CDT, Duration: 30 day, Stop date: 02/26/21 15:27:00 CDT, BSA: 1.79 m2, 0 Tylenol No Notes: Do Memor ia 01-27 not exceed l 09:29: 4 gm/day. [place] 00 (Same as: Tylenol) tramadol No Notes: Not Mem oria hydrochlori 01-27 to exceed l de 50 MG 09:29: 400mg/day. Her braden Oral Tablet 00 (Same As: Ultram) heparin No Notes: Memoria 01-27 porcine l 02:00: heparin Vin 00 Magnesium No Notes: Memori a Oxide 01-23 (Same as: l 22:54: Mag-Ox Vin 00 400) Magnesium oxide 411pa=[id number] g elemental magnesium Dose=____m g magnesium oxide (___mg elemental magnesium) Coreg No Notes: Memoria 01-23 Give with l 02:00: food. Vin 00 (Same As: Coreg) Buspar No Notes: Memoria 01-22 (Same As: l 22:00: BuSpar) [place] Fentanyl No Notes: Memoria 01-22 (Same as: l 21:06: Sublimaze) Vin 00 Preservati ve free. Norvasc No Notes: Memoria 8-04 (Same as: l 16:47: Norvasc) Wellbutrin No Notes: Memor ia 8-04 (Same [...] 00 24 HR No Notes: Memoria Divalproex 8- Hazardous l Sodium 500 14:00: Drug Group H ermann MG Extended 00 2:Non-anti Release neoplastic Tablet Hazardous [Depakote] Drug -- Refer to safe handling procedure PPE Matrix (Same as: Depakote ER) Once daily dosing; indicated for migraines. Divalproex sodium extended-r elease tab. Do not chew or crush. Doxazosin No Notes: Memori a - (Same as: l 14:00: Cardura) Furosemide No [...] Zoloft) Tramadol No Notes: Not Mem oria 01-22 to exceed l 09:44: 400mg/day. (Same As: Ultram) Tylenol No Notes: Do Memor ia 01-22 not exceed l 09:44: 4 gm/day. (Same as: Tylenol) Fentanyl No Notes: Memoria 8-04 (Same as: l 09:44: Sublimaze) [place] 00 Preservati ve free. Fentanyl No Notes: Memoria 8-04 (Same as: l 04:46: Sublimaze) [place] 00 Preservati ve free. Fentanyl No Notes: Memoria 8-04 (Same as: l 02:01: Sublimaze) Preservati ve free. Coreg No Notes: Memoria - Give [...] Lispro 01-21 (Same as: l 20:01: Humalog) [place] Roll in palms of hands gently; Do [...] 02/20/21 9:00:00 CDT Albuterol No Notes: SEE Az moria 01-21 RT l 17:49: DOCUMENTAT [place] 00 ION (Same as: Proventil) albuterol No 180 [...] 01-21 Same as: l 17:31: BD Vin 00 Posiflush Sterile propofol 10 No Notes: If M emoria mg/mL 01-21 Diprivan - l (Titrate.) 17:31: change Nidia nn IV 1,000 mg 00 bottle & tubing every 12 hr Per state nursing law propofol can only be given by a nurse if patient is intubated or being intubated (unless the nurse is a DIRECTOR LONG TERM CARE). Same as: Diprivan midazolam No Route: IV, Me moria (ANES) 01-21 Drug form: l 17:18: SOLN, ONCE, Stop date: 01/21/21 12:18:00 CDT fentaNYL [...] Memoria 01-21 (Same as: l 13:16: Sublimaze) Preservati ve free. Hydromorpho No Notes: Mendoza janice ne [...] janice 01-21 (Same as: l 13:16: Zofran) [place] 00 MEDICATION WASTE Product Size: 4 mg Product Wasted: ___ mg Promethazin No Notes: Do M emoria e 01-21 not give l 13:16: IV push. (Same as: Phenergan) Simethicone No Notes: Mendoza janice 01-21 (Same as: l 13:16: Mylicon, [place] 00 Phazyme, Genasyme) calcium No See Memoria acetate 667 803 Instructio l MG Oral 12:59: ns, 1 [...] Take 1 [facility] mouth 1 complex-vit 11 [...] n [XIFAXAN] 00 tab, 2 Refill(s), Pharmacy: [facility], 154.94, cm, 12/24/20 10:43:00 CDT, Height, 71.818, kg, 12/24/20 10:43:00 CDT, Weight {2 (480 ML Yes See Memoria Magnesium -06 Instructio l Sulfate 18:12: ns, take Jake n 0.0277 00 as MEQ/ML / directed, potassium give sulfate clenpiq if 0.0374 not MEQ/ML / covered by sodium insurance, sulfate # 1 ea, 0 0.257 Refill(s), MEQ/ML Oral Pharmacy: Solution) } [email or web address] [Suprep 808, Bowel Prep 154.94, Kit] cm, 12/24/20 10:43:00 CDT, Height, 71.818, kg, 12/24/20 10:43:00 CDT, Weight Citric Acid Yes 160 mL, Mem oria 75 MG/ML / 7-06 PO, PRE l Magnesium 18:11: OP, # 1 Nidia nn Oxide 21.9 00 ea, 0 MG/ML / Refill(s), picosulfate Pharmacy: [facility] [place] 0.[facility]25 [facility] MG/ML Oral 808, Solution 154.94, [Clenpiq] cm, 12/24/20 10:43:00 CDT, Height, 71.818, kg, 12/24/20 10:43:00 CDT, Weight cyproheptad Yes 4 mg = 1 Me moria ine 4 mg 7-06 tab, PO, l oral tablet 18:10: TID, X 30 H ermann day, # 90 tab, 3 Refill(s), [email or web address], 154.94, cm, 12/24/20 10:43:00 CDT, Height, 71.818, kg, 12/24/20 10:43:00 CDT, Weight Zinc Yes 140 mg, Memoria 7-06 PO, Daily, l 15:54: 0 Vin 00 Refill(s) Elderberry Yes 0 Memoria preparation 06 Refill(s) l 15:54: Buspar 0 Yes PO, BID, 0 Memor ia 06 Refill(s) l 15:53: Dialyvite 0 Yes 0 Memoria 5000 12-24 Refill(s) l 15:53: buPROPion 0 Yes 300mg Take 300 UT XL 6-19 mg by Health (Wellbutrin 00:00: mouth 1 XL) 300 MG 00 (one) time 24 hr each day tablet in the morning. busPIRone Yes 7.5mg Take 7.5 Uni vers 7.5 mg 6-19 mg by ity of tablet 00:00: mouth 2 [place] 00 (two) Medical times Branch daily. traZODone 0 Yes 200mg QD Take 200 [...] 2 tablet 00 (two) times a day. metoprolol 0 Yes 1{tbl} QD Take 1 UT succinate 5-25 tablet by Healt h XL 00:00: mouth 1 (Toprol-XL) 00 (one) time 50 MG 24 hr each day. tablet ascorbic 0 Yes 500mg Q.29738865 Take 500 UT acid 5-15 [id number] mg by Health (Vitamin C) 00:00: 3D mouth 3 500 MG 00 (three) tablet times a day. sucralfate Yes 1{tbl} QD Take 1 UT (Carafate) 5-10 tablet by Heal th 1 g tablet 00:00: mouth 1 00 (one) time each day. zinc Yes DAILY Univers sulfate 50 5-10 ity of mg zinc 00:00: [place] (220 mg) 00 Medical capsule Branch ondansetron Yes 4mg Take 4 mg U nivers 4 mg 4-13 by mouth ity of disintegrat 00:00: daily. [place] ing tablet 00 Medical Branch GLIPIZIDE 5 Yes [id number] TAKE 1 Univers mg tablet 4-06 TABLET BY ity o f 00:00: MOUTH [place] 00 TWICE Medical DAILY Branch BEFORE BREAKFAST AND BEFORE SUPPER doxazosin 4 2020- No 4mg Take 4 mg Univers mg tablet 06-27- by mouth 2 ity of 10:52: 00:00 (two) [place] 22 :00 times Medical daily. Branch doxazosin 4 Yes 4mg Take 1 Univ ers mg tablet 1-07 tablet by ity o f 00:00: mouth at [place] 00 bedtime. Medical Branch doxazosin 4 Yes 4mg Take 1 Univ ers mg tablet -07 tablet by ity o f 00:00: mouth at [place] 00 bedtime. Medical Branch glipiZIDE 5 2019-06- No [id number] 5mg Take 1 Univers mg tablet 1-11 04-06 tablet by ity of 00:00: 00:00 [...] [place] tablet 00 daily. Medical Branch calcium 2019-0 Yes 667mg Take 667 Unive rs acetate,domingo 9-15 mg by ity of sphat bind, 00:00: mouth. [place] 667 mg 00 Medical capsule Branch traZODone Yes 150mg Take 150 Uni vers 150 mg 8-13 mg by ity of tablet 00:00: mouth at [place] 00 bedtime. Medical Branch traZODone Yes 150mg Take 150 Uni vers 150 mg 8-13 mg by ity of tablet 00:00: mouth at [place] 00 bedtime. Medical Branch erythromyci 2020- No [id number] .[id number][in_u Place 0.5 Univers n 5 mg/gram [...] (DEPAKOTE) 7-20 associated mg by Pati kes 500 MG EC 15:20: with mouth [...] l 59 Center hydrALAZINE 2017-0 Yes 100mg Q.[id number] Take [address] [facility] (APRESOLINE 7-20 [id number] mg by L ukes ) 100 MG 15:20: 3D mouth 3 Medica l tablet 59 (three) Center times daily. magnesium 2017-0 Yes 400mg QD Take [address] [facility] [address] oxide 7-20 [facility] (MAG-OX) 15:20: mouth Medical 400 mg 59 daily. Center tablet metoclopram 2017-0 Yes 10mg Q.87227445 Take [address] [facility] gadiel HCl 7-20 [id number] by mouth 3 [facility] (REGLAN) 10 15:20: [...] (DEPAKOTE) 7-20 associated mg by Pati kes 500 MG EC 15:20: with mouth [...] l 59 Center hydrALAZINE 2017-0 Yes 100mg Q.[id number] Take [address] [facility] [address] (APRESOLINE 7-20 [id number] mg by L ukes ) 100 MG 15:20: 3D mouth 3 Medica l tablet 59 (three) Center times daily. magnesium 2017-0 Yes 400mg QD Take [address] oxide 7-20 mg by [facility] (MAG-OX) 15:20: mouth Medical 400 mg 59 daily. Center tablet metoclopram 2017-0 Yes 10mg Q.98639839 Take [address] [facility] gadiel HCl 7-20 [id number] by mouth 3 [facility] (REGLAN) 10 15:20: [...] (DEPAKOTE) 7-20 associated mg by Pati kes 500 MG EC 15:20: with mouth [...] l 59 Center hydrALAZINE 2017-0 Yes 100mg Q.[id number] Take [address] [facility] [address] (APRESOLINE 7-20 [id number] mg by L ukes ) 100 MG 15:20: 3D mouth 3 Medica l tablet 59 (three) Center times daily. magnesium 2017-0 Yes 400mg QD Take [address] oxide 7-20 mg by [facility] (MAG-OX) 15:20: mouth Medical 400 mg 59 daily. Center tablet metoclopram 2017-0 Yes 10mg Q.77830390 Take [address] [facility] gadiel HCl 7-20 [id number] by mouth 3 [facility] (REGLAN) 10 15:20: [...] (DEPAKOTE) 7-20 associated mg by Pati kes 500 MG EC 15:20: with mouth [...] l 59 Center hydrALAZINE 2017-0 Yes 100mg Q.53562064 Take [address] [facility] (APRESOLINE 7-20 [id number] mg by L ukes ) 100 MG 15:20: 3D mouth 3 Medica l tablet 59 (three) Center times daily. magnesium 2017-0 Yes 400mg QD Take [address] oxide 7-20 mg by [facility] (MAG-OX) 15:20: mouth Medical 400 mg 59 daily. Center tablet metoclopram 2017-0 Yes 10mg Q.38115811 Take [address] [facility] [address] gadiel HCl 7-20 [id number] by mouth 3 [facility] (REGLAN) 10 15:20: [...] 07-30 Route: PO, l 15:00: Drug form: [place] 00 TAB, Daily, Dosing Weight 92.273, kg, Start date: 07/30/16 9:00:[address] REPORTER, Duration: 30 day, Stop date: 08/28/16 9:00:[address] REPORTER Lasix No Notes: Memoria 2-08 (Same as: l 20:05: Lasix) May cause GI upset. Give with food or milk. Hydralazine No Notes: Mendoza janice 2-08 (Same as: l 06:05: Apresoline ) Push over 5 minutes sodium 2016-0 No 1,000 mL, Memori a chloride 07-26 Rate: 125 l 0.9% 1000 18:26: ml/hr, Jake n ml INJ 00 Infuse 1,000 mL over: 8 hr, Route: IV, Dosing Weight 92.273 kg, Total Volume: 1,000, Start date: 07/26/16 12:26:[address] REPORTER, Duration: 30 day, Stop date: 08/25/16 12:25:[address] REPORTER Sodium 2017-0 No 500 mL, Memoria Chloride 2-05 500 ml/hr, l 0.154 13:30: Infuse [place] MEQ/ML 00 Over: 1 Injectable hr, Route: Solution IV, 500, Drug form: INJ, ONCE, Priority: STAT, Dosing Weight 92.273 kg, Start date: 07/26/16 7:30:[address] REPORTER, Duration: 1 doses or times, Stop date: 07/26/16 7:30:[address] REPORTER Insulin No 60 units) Mendoza janice regular 2-04 WASTE: F/P l 08:39: - Black; E [place] 00 - Municipal Trash Bin Stable for 28 days at room temperatur e Expires in days from ____Date Insulin, No Notes: Memoria Aspart, 2-04 Roll in l Human 07:31: palms of [place] 00 hands gently; Do not shake vigorously . (Same as: NovoLOG) "single patient use only" WASTE: F/P - Black; E - Municipal Trash Bin Stable for 28 days at room temperatur e. Expires in days from ____Date Insulin, No Notes: Memoria Aspart, 2-04 Roll in l Human 05:42: palms of [place] 00 hands gently; Do not shake vigorously . (Same as: NovoLOG) "single patient use only" WASTE: F/P - Black; E - Municipal Trash Bin Stable for 28 days at room temperatur e. Expires in days from ____Date Insulin, No Notes: Memoria Aspart, 2-04 Roll in l Human 03:28: palms of [place] 00 hands gently; Do not shake vigorously [...] daily dosing; indicated for migraines. Divalproex sodium extended-r elease tab. Do not chew [...] Weight 92.273, kg, Start date: 07/24/16 9:00:[address] REPORTER, Duration: 30 day, Stop date: 08/22/16 9:00:[address] REPORTER 24 HR No Notes: Memoria Divalproex 2-03 [...] Memoria 2-03 Tablet l 15:00: should not [place] 00 be chewed or crushed. (Same as: Protonix) metoprolol No 100 mg, 2 Me moria extended 2-03 tab, l release 15:00: Route: PO, Herm naeem 00 Drug form: ERTAB, Daily, Start date: 07/24/16 9:00:[address] REPORTER, Duration: 30 day, Stop date: 08/22/16 9:00:[address] REPORTER Insulin No Notes: Memoria Glargine 2-03 Same [...] Notes: Memoria 2-03 (Same l 14:50: as:MORPhin [place] 00 e Sulfate) Insulin, No Notes: Memoria Aspart, 2-03 Roll in l Human 13:30: palms of [place] 00 hands gently; Do not shake vigorously . (Same as: NovoLOG) "single patient use only" WASTE: F/P - Black; E - Municipal Trash Bin Stable for 28 days at room temperatur e. Expires in days from ____Date Dilaudid No Notes: Memoria 2-03 Same as l 11:28: Dilaudid [place] Insulin, No Notes: Memoria Aspart, 2-03 Roll in l Human 08:40: palms of [place] 00 hands gently; Do not shake vigorously . (Same as: NovoLOG) "single patient use only" WASTE: F/P - Black; E - Municipal Trash Bin Stable for 28 days at room temperatur e. Expires in days from ____Date Glucagon No 1 mg, Memoria 2-03 Route: IM, l 08:40: Drug form: [place] 00 PDR/INJ, PRN, Dosing Weight 92.273, kg, PRN Blood Glucose Results, Start date: 07/24/16 2:40:[address] REPORTER, Duration: 30 day, Stop date: 08/23/16 2:39:[address] REPORTER Dextrose No 25 gm, 50 Mendoza janice 50% Syringe 2-03 mL, Route: l 08:40: IVP, Drug Form: INJ, Dosing Weight 92.273, kg, PRN, PRN Blood Glucose Results, Start date: 07/24/16 2:40:[address] REPORTER, Duration: 30 day, Stop date: 08/23/16 2:39:[address] REPORTER Docusate No Notes: Memoria 2-03 (Same as: [...] as: l / 04:09: Duoneb) Ipratropium 00 [place] 0.167 MG/ML Inhalant Solution [DuoNeb] Furosemide [...] tab, PO, l tablet 16:34: Daily, # [place] 00 30 tab, 0 Refill(s) Lasix 2015-06 No Notes: Memoria 2-26 (Same as: l 15:00: Lasix) October Vin 00 cause GI upset. Give with food or milk. Magnesium 2015-06 No Notes: Memori a Oxide 2-24 (Same as: l 13:36: Mag-Ox [place] 00 400) Magnesium oxide [id number]=023p g elemental magnesium Dose=____m g magnesium oxide (___mg elemental magnesium) Magnesium 2015-06 No Notes: Memori a Oxide 2-24 (Same as: l 09:47: Mag-Ox Vin 00 400) Magnesium oxide [id number] g elemental magnesium Dose=____m g magnesium oxide [...] (Same as: l 00:00: Norvasc) Vin 00 Insulin 2015-06 No Notes: Memoria Glargine [...] tab, PO, l tablet 15:35: Daily, 0 [place] 00 Refill(s) Sertraline 2015-06 Yes 200 mg = 2 M emoria 100 MG Oral 2-23 tab, PO, l Tablet 15:27: Daily, 0 [place] [Zoloft] 00 Refill(s) pantoprazol 2015-06 Yes 40 [...] (Same l 19:00: as:Chronul Vin 00 ac) Furosemide 2015-06 No Notes: Memor ia [...] Tablet daily [Depakote] dosing; indicated for migraines. Divalproex sodium extended-r elease tab. Do not chew or crush. "Do Not Crush" Aspirin 2015-06 No 81 mg, Memoria 2-22 Route: PO, l 15:00: Drug form: ECTAB, Daily, Dosing Weight 86.364, kg, Start date: 06/11/16 9:00:[address] REPORTER, Duration: 30 day, Stop date: 07/10/16 9:00:[address] REPORTER Insulin 2015-06 No Notes: Memoria Glargine 2-22 [...] sodium, 2-22 porcine l porcine 06:00: heparin [place] 2500 UNT/ML 00 Injectable Solution Albuterol 2015-06 No Notes: Memori a 0.833 MG/ML 2-22 (Same as: l / 03:00: Duoneb) Vin Ipratropium 00 [place] 0.167 MG/ML Inhalant Solution [DuoNeb] gabapentin 2015-06 No 300 mg, Mendoza janice 300 MG Oral 2-22 Route: PO, l Capsule 03:00: Drug form: Herm naeem 00 CAP, Q12H, Dosing Weight 86.364, kg, (CrCl 30 - 59 ml/min), Start date: 06/10/16 21:00:[address] REPORTER, Duration: 30 day, Stop date: 07/10/16 9:00:[address] REPORTER divalproex 2015-06 No Notes: Memor ia sodium 2-22 (Same as: l 03:00: Depakote Vin 00 ER) Once daily dosing; indicated for migraines. Divalproex sodium extended-r elease tab. Do not chew or crush. "Do Not Crush" Losartan 2015-06 No Notes: Memoria 2-22 (Same as: l 03:00: Cozaar) [place] 00 Insulin, 2015-06 No Notes: Memoria Aspart, [...] Blood Glucose Results, Start date: 06/10/16 18:50:[address] REPORTER, Duration: 30 day, Stop date: 07/10/16 18:49:[address] REPORTER Glucagon 2015-06 No 1 mg, Memoria 2-22 Route: IM, l 00:50: Drug form: Vin PDR/INJ, PRN, Dosing Weight 86.364, kg, PRN Blood Glucose Results, Start date: 06/10/16 18:50:[address] REPORTER, Duration: 30 day, Stop date: 07/10/16 18:49:[address] REPORTER Hydralazine 2015-06 No Notes: Mendoza janice 2-22 (Same as: l 00:36: Apresoline ) Push over 5 minutes Hydralazine 2015-06 No Notes: Mendoza janice 2-22 (Same as: l 00:34: Apresoline ) May interfere w/enteral feedings Take With Food metoprolol 2015-06 No Notes: Memor ia extended 2- (Same as: l release 00:08: Toprol XL) May split tab, but do not crush. Hydralazine 2015-06 No 10 mg, Mendoza janice 2-22 Route: IV, l 00:06: ONCE, Dosing Weight 86.364, kg, Start date: 06/10/16 18:06:[address] REPORTER, Stop date: 06/10/16 18:06:[address] REPORTER hydrOXYzine 2015-06 No Notes: Mendoza janice pamoate - (Same as: l 23:00: Vistaril) Furosemide 2015-06 No 60 mg, Memor ia 2-21 Route: l 22:32: IVP, Drug form: INJ, ONCE, Dosing Weight 86.364, kg, Start date: 06/10/16 16:32:[address] REPORTER, Stop date: 06/10/16 16:32:[address] REPORTER Lasix 2015-06 No Notes: Memoria -21 (Same as: l 17:22: Lasix) MEDICATION WASTE Product Size: 40 mg Product Wasted: _0__ mg Albuterol 2015-06 No Notes: Memori a 0.833 MG/ML - (Same as: l 17:22: Duoneb) Ipratropium 00 [place] 0.167 MG/ML Inhalant Solution [DuoNeb] Promethazin Yes 25 mg = 1 M emoria e 1-06 supp, ND, l Hydrochlori 14:45: Q6H, Jake n de 25 MG 00 Nausea & Rectal Vomiting, Suppository # 9 supp, [Phenergan] 0 Refill(s) Ondansetron Yes Special Mem oria 4 MG 06-26 Instructio l Disintegrat 14:25: ns: Jkae n ing Tablet 00 Dissolve [Zofran] tab [...] Chloride 1-06 1,000 l 0.154 10:56: ml/hr, Vin MEQ/ML 00 Infuse Injectable Over: 2 Solution [...] Gary 4 mg, Mem oria Sulfate 0-26 Amrry Route: l 04:10: IVP, ONCE, Dosing Weight [...] Rate: 125 l 0.9% IV 04:10: ml/hr, [place] 1,000 mL 00 Infuse over: 8 hr, [...] Marx Rate: 500 l 0.9% 23:45: ml/hr, [place] (Bolus) IV 00 Infuse 500 mL over: [...] insulin No Blake 10 unit, Mem oria isophane-BROILER MANAGER 6-11 Deangelo 0.1 mL, l H [...] 2011-0 No Blake 14 unit, Mem oria isophane-BROILER MANAGER 6-10 Deangelo 0.14 mL, l H 14:00: Route: [place] 00 SUB-Q, Drug form: INJ, Daily, Start date: 11/29/11 9:00:00, Duration: 30 day, Stop date: 12/28/11 9:00:00 Insulin 2011-0 No Blake 10 unit, Mem oria regular 6-10 Deangelo 0.1 mL, l 14:00: Route: [place] 00 SUB-Q, Drug form: SOLN, Daily, Start [...] 30 day, Stop date: 12/29/11 1:27:00 ondansetron 0 No Blake 4 mg, 2 Memoria 6-10 [...] mL, Route: l 02:31: Brown IVP, Drug [place] 00 form: INJ, ONCE, Priority: STAT, Start date: 11/28/11 21:31:00, Stop date: 11/28/11 21:31:00 NS (Bolus) No Arif Domenico 1,000 mL, Memoria IV 1,000 mL 11-27 Rate: l 22:48: 1,000 [place] 00 ml/hr, Infuse over: 1 hr, Route: IV, Dosing Weight 57.273 kg, Total Volume: 1,000, Start date: 11/28/11 17:48:00, Duration: 30 day, Stop date: 12/28/11 17:47:00 NS (Bolus) No Arif Domenico 1,000 mL, Memoria IV 1,000 mL 11-27 Rate: l 20:36: 1,000 [place] 00 ml/hr, Infuse over: 1 hr, Route: IV, Dosing Weight 57.273 kg, Total Volume: 1,000, Start date: 11/28/11 15:36:00, Duration: 30 day, Stop date: 12/28/11 15:35:00 Ativan No Arif Domenico 2 mg, 1 Mem oria 6-09 mL, Route: l 20:35: IVP, Drug [place] 00 form: INJ, ONCE, Priority: STAT, Start date: 11/28/11 15:35:00, Stop date: 11/28/11 15:35:00 Novolin R Yes Hughes-Jason 8 unit, M emoria 100 3-30 [place] SUB-Q, l units/mL 17:47: Eunice Q12H, 2 He rmann injectable 42 Pu vial, solution Substituti on Allowed, SOLN Novolin N 2011-0 Yes Hughes-Jason 10 unit, Memoria 100 3-30 [place] SUB-Q, l units/mL 17:46: Eunice Bedtime, H ermann subcutaneou 27 Pu 10 ml, s injection Substituti on Allowed, SUSP Novolin N 2011-0 Yes Hughes-Jason 14 unit, Memoria 100 3-30 [place] SUB-Q, l units/mL 17:44: Eunice QAM, 1 Her braden subcutaneou 37 Pu vial, s injection Substituti on Allowed, SUSP magnesium 2011-0 No Hughes-Jason 400 mg, 1 Memoria oxide 3-30 [place] tab, l 14:55: Eunice Route: PO, Her braden 00 Pu Drug form: TAB, ONCE, Priority: STAT, Start date: 09/18/11 9:55:00, Stop date: 09/18/11 9:55:00 Insulin 2011-0 No Hughes-Jason 8 unit, Mem oria regular 3-30 [place] 0.08 mL, l 14:22: Dawson Route: Vin 00 Pu SUB-Q, Drug form: SOLN, ONCE, Priority: STAT, Start date: 09/18/11 9:22:00, Stop date: 09/18/11 9:22:00 Lactated 2011-0 No Hughes-Jason 1,000 mL, Memoria Ringers 3-30 [place] Rate: l (Bolus) IV 14:16: Eunice 1,000 He rmann 1,000 mL 00 Pu ml/hr, Infuse over: 1 hr, Route: IV, Total Volume: 1,000, Bolus Dose, Priority: STAT, Start date: 09/18/11 9:16:00, Duration: 1 doses or times, Stop date: 09/18/11 10:15:00 Sodium 2011-0 No Hughes-Jason 1,000 mL, Me moria Chloride 3-30 [place] Rate: l 0.9% 14:06: Eunice 1,000 [place] (Bolus) IV 00 Pu ml/hr, 1000 mL Infuse over: 1 hr, Route: IV, kg, Total Volume: 1,000, Bolus Dose, Priority: STAT, Start date: 09/18/11 9:06:00, Duration: 1 doses or times, Stop date: 09/18/11 10:05:00 sulfamethox 2011- Yes Substituti Memoria azole 3-30 on Allowed l 14:04: Vin 58 Sodium 2011-0 No Hughes-Jason 1,000 mL, Me moria Chloride 3-30 [place] Rate: l 0.9% 13:56: Dawson 1,000 Vin (Bolus) IV 00 Pu ml/hr, 1000 mL Infuse over: 1 hr, Route: IV, kg, Total Volume: 1,000, [place] Dose, Priority: STAT, Start date: 09/18/11 8:56:00, Duration: 1 doses or times, Stop date: 09/18/11 9:55:00 clindamycin No Eber L 300 mg, 2 Memoria 3-21 Anabelle cap, l 21:00: Route: PO, [place] 00 Drug form: CAP, Q8H, Start date: 09/09/11 16:00:00, Duration: 30 day, Stop date: 10/09/11 8:00:00 Colace 100 0 Yes Luna 100 mg, 1 Memoria mg oral 3-21 Amelia cap, PO, l capsule 18:47: Zeeshan BID, 60 Her braden 19 cap, Substituti on Allowed, CAP clindamycin Yes Luna 300 mg, 2 Memoria 150 mg oral 3-21 Amelia cap, PO, l capsule 18:46: Plato Q8H, 30 Her braden 55 cap, Substituti on Allowed, CAP [place] Yes Luna 1 tab, PO, Memoria 10/325 oral 3-21 Amelia Q4H, PRN, l tablet 18:46: Plato 30 tab, Herm naeem 36 Pain, Substituti on Allowed, Maintenanc e, TAB [place] No Hollie Donavan 1 tab, Mendoza janice 10/325 oral 3-21 Mahi Route: PO, l tablet 09:00: Drug Form: Nidia nn 00 TAB, Q4H, Start date: 09/09/11 4:00:00, Duration: 30 day, Stop date: 10/09/11 0:00:00 Colace 100 2012-0 No [place] 100 mg, [...] moria 3-19 Josefina 0.1 mL, l 14:19: Bascom Route: [place] IVP, Drug form: INJ, Q2MIN, PRN Narcotic Reversal, Start date: 09/07/11 9:19:00, Duration: 8 doses or times, Stop date: Limited # of times ondansetron No Gayle 4 mg, 2 Memoria 3-19 Josefina mL, Route: l 14:19: [place]com IVP, Drug Jake n 00 form: INJ, [...] Josefina Route: PO, l one 325 14:19: [place] Drug Form: Tyrel rmann mg-10 mg/15 00 [...] Memoria 09-06 Arias Route: l 13:31: IVPB, [place] 00 ONCE, Start date: 09/07/11 8:31:00, Stop [...] 3-17 Wong tab, l 04:00: Route: PO, [place] 00 Drug form: ECTAB, Daily, PRN Constipati [...] Duration: 30 day, Stop date: 10/04/11 18:10:00 [place] 2011-0 No Mahammad 1 tab, Memori [...] 10cc/hr, l - site 1 14:50: Route: [place] 400 mL 00 NERVE BLOCK, Start date: 09/04/11 9:50:00 400 mL, Duration: 30 day, Stop date: 10/04/11 9:49:00 naloxone 2011-0 No Rosalino 0.04 mg, Me moria 3-16 Kavon 0.1 mL, l 14:50: Route: Vin 00 IVP, Drug form: INJ, Q2MIN, PRN Narcotic Reversal, Start date: 09/04/11 9:50:00, Duration: 30 day, Stop date: 10/04/11 9:49:00 [place] 2011-0 No [place] 1 tab, Memoria 10/325 [...] Route: l 13:37: Hayden IVP, Drug Nidia form: INJ, PRN, PRN Benzodiaze pine Reversal, [...] 30 day, Stop date: 10/03/11 8:00:00 potassium 0 No [place] 40 mEq, 2 M emoria chloride 3-15 Omidvar tab, l 13:39: Route: PO, Drug form: ERTAB, ONCE, Start date: 09/03/11 8:39:00, Stop date: 09/03/11 8:39:00 [place] 5/325 2011-0 No Rosalino 1 tab, M emoria oral tablet 3-15 Kavon Route: PO, l 05:00: Drug Form: [place] 00 TAB, Q4H, Start date: 09/03/11 0:00:00, [...] Duration: 30 day, Stop date: 10/02/11 9:00:00 [place] 5/325 2011-0 No Rosalino 1 tab, M emoria oral tablet 3-14 Kavon Route: PO, l 16:25: Drug Form: [place] 00 TAB, Q4H, PRN Pain, Start date: [...] Route: l 14:00: IVPB, Drug form: INJ, [id number], Start date: 09/02/11 9:00:00, Duration: 30 day, Stop date: 10/01/11 21:00:00 clindamycin 2011-0 No Eber L 600 mg, 4 Memoria (SCIP) 3-14 Anabelle mL, Route: l 10:00: IVPB, [place] 00 [id number], Start date: 09/02/11 5:00:00, Duration: 3 doses or times, Stop date: 09/02/11 21:00:00 clindamycin 2011-0 No Yury 600 mg, 4 Memoria (SCIP) 3-14 Silverio mL, Route: l 04:00: Connally IVPB, [place] [id number], Start date: 09/01/11 23:00:00, Duration: 3 doses or times, Stop date: 09/02/11 15:00:00 insulin 2011-0 No [place] 15 unit, Mendoza janice isophane-BROILER MANAGER 3-14 Omidvar 0.15 mL, l H [...] 3-14 Barbra Route: l 01:07: Feliciano IVP, [place] 00 Q5Min, PRN Pain Score 4-6, Start date: 09/01/11 20:07:00, Duration: 5 doses or times, Stop date: Limited # of times naloxone No Mariaelena-Corea 0.04 mg, Memoria 3-14 Barbra Route: l 01:07: Feliciano IVP, [place] 00 Q2MIN, PRN Narcotic Reversal, Start date: 09/01/11 20:07:00, Duration: 8 doses or times, Stop date: Limited # of times flumazenil No Mariaelena-Corea 0.2 mg, Memoria 3-14 Barbra Route: l 01:07: Feliciano IVP, PRN, [place] 00 PRN Benzodiaze pine Reversal, Initial dose, Start date: 09/01/11 20:07:00, Duration: 30 day, Stop date: 10/01/11 20:06:00 ondansetron No Mariaelena-Corea 4 mg, Memoria 3-14 Barbra Route: l 01:07: Feliciano IVP, ONCE, Vin 00 PRN Nausea & Vomiting, Start date: 09/01/11 20:07:00 vancomycin No Mele 1 gm, Mem oria 14 Gauvain Route: l 01:00: IVPB, Drug form: INJ, [id number], Start date: 09/01/11 20:00:00, Duration: 30 day, Stop date: 10/01/11 8:00:00 Lactated No Charbel A 1,000 mL, Memoria Ringers IV 3 Wong Rate: 125 l 1,000 mL 00:55: ml/hr, Infuse over: 8 hr, Route: IV, Dosing Weight 68.2 kg, Total Volume: 1,000, Start date: 09/01/11 19:55:00, Duration: 30 day, Stop date: 10/01/11 19:54:00 vancomycin 2011-0 No Missael 1 gm, Memor ia 3-14 Movva Route: l 00:00: IVPB, Drug form: INJ, [id number], Start date: 09/01/11 19:00:00, Duration: 30 day, [...] 30 day, Stop date: 10/01/11 18:22:00 morphine 2011- No Daja Shannan 2 mg, 1 M emoria Sulfate 3-13 Beni mL, Route: l 21:14: IVP, Drug form: INJ, Q4H, PRN Severe Pain, Start date: 09/01/11 16:14:00, Stop date: 10/01/11 16:13:00 Lactated 2011-0 No Cesar 1,000 mL, Me moria Ringers IV 3-13 Manuel Metter Rate: 100 l 1,000 mL 19:03: ml/hr, [...] Madden 0.08 mL, l 15:28: Gurinder Route: [place] 00 SUB-Q, Drug form: SOLN, ONCE, Priority: [...] Route: l 13:20: Sandeep IVPB, Drug Herm form: INJ, ONCE, Priority: STAT, Start date: 09/01/11 8:20:00, Stop date: 09/01/11 8:20:00 Sodium 2011-0 No Bee L 1,000 mL, M emoria Chloride 08-31 [place] Rate: l 0.9% 10:41: 1,000 Vin (Bolus) IV 00 ml/hr, 1000 mL Infuse over: 1 hr, Route: IV, Dosing Weight 68.182 kg, Total Volume: 1,000, Bolus Dose, Priority: STAT, Start date: 09/01/11 5:41:00, Duration: 1 doses or times, Stop date: 09/01/11 6:40:00 ondansetron 2011- No Bee L 4 mg, Memoria 08-31 Edmond Route: l 09:06: IVP, Drug [place] 00 form: INJ, ONCE, Priority: STAT, Start date: 09/01/11 4:06:00, Stop date: 09/01/11 4:06:00 morphine 2011-0 No Bee L 4 mg, Mem oria Sulfate 08-31 Edmond Route: l 09:06: IVP, ONCE, [place] 00 Priority: STAT, Start date: 09/01/11 4:06:00, Stop date: 09/01/11 4:06:00 Sodium 2011- No Bee L 1,000 mL, M emoria Chloride 08-31 [place] Rate: l 0.9% 08:42: 1,000 Vin (Bolus) IV 00 ml/hr, 1000 mL Infuse over: 1 hr, Route: IV, Dosing Weight 68.182 kg, Total Volume: 1,000, Bolus Dose, Priority: STAT, Start date: 09/01/11 3:42:00, Duration: 1 doses or times, Stop date: 09/01/11 4:41:00 Insulin 2011-0 No Bee L 8 unit, Me moria regular 08-31 Cruzito 0.08 mL, l 08:30: Route: [place] 00 IVP, Drug form: SOLN, ONCE, Priority: STAT, Start date: 09/01/11 3:30:00, Stop date: 09/01/11 3:30:00 Sodium 2011-0 No Bee L 1,000 mL, M brandona Chloride 3-13 [place] Rate: l 0.9% 07:29: 1,000 Vin (Bolus) IV 00 ml/hr, 1,000 mL Infuse over: 1 hr, Route: IV, Dosing Weight 68.182 kg, Total Volume: 1,000, Bolus Dose, Priority: STAT, Start date: 09/01/11 2:29:00, Duration: 1 doses or times, Stop date: 09/01/11 3:28:00 potassium No Velásquez Noam 40 mEq, 2 Memoria chloride 3-04 Akmal tab, l 15:00: Route: PO, [place] 00 Drug form: ERTAB, BID, Start date: [...] Akmal SUB-Q, l units/mL 14:42: BID, 3 [place] subcutaneou 04 vial, 3, s injection 3, Substituti on Allowed, SUSP insulin Yes Velásquez Noam 5 Units, Memoria regular 3-04 Akmal SUB-Q, l human 14:40: TID, 30 [place] recombinant 10 vial, 3, 100 3, units/mL [...] chloride 3-04 Akmal Route: l 13:28: IVPB, [place] 00 ONCE, Priority: STAT, Start date: 08/23/11 [...] Akmal mL, Route: l 12:26: IVPB, Drug [place] 00 form: INJ, ONCE, Total dose = [...] 3-02 Akmal tab, l 15:00: Route: PO, [place] 00 Drug form: TAB, Daily, Start date: [...] Route: PO, H ermann Drug form: CAP, ONCE, Start date: 08/20/11 [...] mL, Route: l 17:15: Ahmed IVP, Drug [place] 00 form: INJ, Q8H, PRN Nausea, Start date: 08/20/11 11:15:00, Duration: 30 day, Stop date: 09/19/11 11:14:00 insulin 2012-0 No Yury 10 unit, Mem oria isophane-BROILER MANAGER 3-01 Gato Route: l H 16:00: Rivero SUB-Q, Nidia nn 00 ONCE, Start date: 08/20/11 10:00:00, Stop date: 08/20/11 10:00:00 trazodone 2011-0 Yes 200 mg, 2 Mem oria 100 mg oral 3- tab, PO, l tablet 15:37: Bedtime, [place] 27 90 tab, Substituti on Allowed, TAB benztropine Yes 1 mg, 1 Mem oria 1 mg oral 3 tab, PO, l tablet 15:35: BID, 60 Vin 25 tab, Substituti on Allowed, TAB Geodon 60 Yes 120 mg, 2 Mem oria mg oral 08-19 cap, PO, l capsule 15:35: Bedtime, Jake n 12 60 cap, Substituti on Allowed, CAP insulin No Yury 10 unit, Mem oria isophane-BROILER MANAGER 3 G[place] Route: l H 15:00: Rivero SUB-Q, [...] Allowed insulin No 10 unit, Memori a isophane-BROILER MANAGER 08-19 SUB-Q, l H 09:26: BID, Vin [...] 2011-0 No Yury 18 unit, Mem oria isophane-BROILER MANAGER - [place] 0.18 mL, l H 08:58: Rivero [...] 30 day, Stop date: 09/19/11 3:47:00 Dextrose 2011- No Yury 25 gm, 50 [...] No Hughes-Jason 4 mg, M emoria 08-19 [place] Route: l 07:42: Dawson IVP, Drug Herm naeem 00 Pu form: INJ, ONCE, Priority: STAT, Start date: 08/20/11 1:42:00, Stop date: 08/20/11 1:42:00 GI cocktail 2011- No Hughes-Jason 30 ml, Memoria 08-19 [place] Route: PO, l 05:12: Drug Form: Her braden 00 Pu SUSP, ONCE, STAT, Start date: 08/19/11 23:12:00, Stop date: 08/19/11 23:12:00 ondansetron 2011-0 No Hughes-Jason 4 mg, M emoria 08-19 [place] Route: PO, l 05:10: Daswon Drug form: Her braden 00 Pu TABDIS, ONCE, Priority: STAT, Start date: 08/19/11 23:10:00, Stop date: 08/19/11 23:10:00 Lactated 2011-0 No Hughes-Jason 1,000 mL, Memoria Ringers 08-19 [place] Rate: l (Bolus) IV 05:10: Dawson 1,000 He rmann 1000 mL 00 Pu ml/hr, Infuse over: 1 hr, Route: IV, Total Volume: 1,000, Bolus Dose, Priority: STAT, Start date: 08/19/11 23:10:00, Duration: 1 doses or times, Stop date: 08/20/11 0:09:00 Insulin 2011-0 No Hughes-Jason 7 unit, Mem oria regular 08-19 [place] 0.07 mL, l 04:15: Dawson Route: [place] 00 Pu SUB-Q, Drug form: SOLN, ONCE, Priority: STAT, Start date: 08/19/11 22:15:00, Stop date: 08/19/11 22:15:00 Geodon 60 2011-0 No Yury 60 mg, 1 M emoria mg oral 2-29 [place] cap, PO, l capsule 23:24: Rivero BID, 180 Vin 43 cap, Substituti on Allowed, CAP trazodone No 300 mg, 1 Mem oria 300 mg oral 29 tab, PO, l tablet 23:23: Bedtime, [place] 58 15 tab, Substituti on Allowed, TAB [...] l 21:57: Pooja IVP, Drug Jake n form: INJ, ONCE, Priority: STAT, Start date: [...] 2020-02-20 Completed [facility] 00:00[facility]00 [facility] Influenza Virus 2020-02-20 Completed [facility] Vaccine 00:00:00 [facility] TDAP (ADACEL) VACCINE 2019-07-25 Completed Uni versity of 00:00:00 [facility] Meningococcal B, OMV 2019-07-25 Completed [facility] ersity of 00:00:00 [facility] Meningococcal 2019-07-25 Completed [facility] Polysaccharide 00:00:00 [place] [facility] (groups A, C, Y and Branc h W-135) conjugate vaccine (MCV4P) TDAP (ADACEL) VACCINE 2019-07-25 Completed Uni versity of 00:00:00 [facility] Meningococcal B, OMV 2019-07-25 Completed [facility] ersity of 00:00:00 [facility] Meningococcal 2019-07-25 Completed [facility] Polysaccharide 00:00:00 [place] [facility] (groups A, C, Y and [...] Vin 00:00:00 influenza virus 2018-03-29 Completed [facility] [place] vaccine, inactivated 00:00:00 hepatitis B vaccine 2017-11-26 Completed Memor ial Vin 00:00:00 influenza virus 2017-10-25 Completed [facility] Vin vaccine, inactivated 00:00:00 pneumococcal 2017-10-25 Completed [facility] 23-valent vaccine 00:00:00 Influenza Virus 2017-06-22 Completed [facility] Vaccine Quad IM 3+ 00:00:00 [facility] Influenza Virus 2017-06-22 Completed [facility] Vaccine Quad IM 3+ 00:00:00 [facility] Influenza Virus 2016-04-02 Completed [facility] Vaccine Quad IM 3+ 00:00:00 [facility] Influenza Virus 2016-04-02 Completed [facility] Vaccine Quad IM 3+ 00:00:00 [facility] Influenza Virus 2015-10-28 Completed [facility] Vaccine Quad IM 3+ 00:00:00 [facility] Influenza Virus 2015-10-28 Completed [facility] Vaccine Quad IM 3+ 00:00:00 [facility] Vital Signs Vital Name Observation Time Observation Value Comments Source Systolic blood 2021-01-03 12:57:00 201 mm[Hg] [facility] pressure Diastolic blood 2021-01-03 12:57:00 104 mm[Hg] [facility] Heart rate 2021-01-03 12:57:00 73 [facility] 2021-01-03 12:57:00 [facility] Body height 2021-01-03 12:57:00 160 [facility] Body weight 2021-01-03 12:57:00 72[facility]122 [facility] BMI 2021-01-03 12:57:00 28.17 kg/m2 [facility] Systolic blood 2021-01-03 12:57:00 201 mm[Hg] [facility] Diastolic blood 2021-01-03 12:57:00 104 mm[Hg] [facility] Heart rate 2021-01-03 12:57:00 73 [facility] Body temperature 2021-01-03 12:57:00 [facility] Body height 2021-01-03 12:57:00 160 [facility] Body weight 2021-01-03 12:57:00 [facility]122 [facility] BMI 2021-01-03 12:57:00 28.17 kg[facility]m2 [facility] Systolic blood 2020-06-27 16:33:00 171 mm[Hg] [facility] pressure [facility] Diastolic blood 2020-06-27 16:33:00 98 mm[Hg] [facility] of [facility] Heart rate 2020-06-27 16:33:00 71 /min [facility] Respiratory rate 2020-06-27 16:29:00 19 /min [facility] ers[facility] of [facility] Body height 2020-06-27 16:29:00 154.9 cm [facility] Body weight 2020-06-27 16:29:00 77.293 kg [facility] BMI 2020-06-27 16:29:00 32.20 kg/m2 [facility] Oxygen saturation in 2020-06-27 16:29:00 99 /min [facility] Arterial blood by [facility] Pulse oximetry Branch Height/Length 2021-07-08 11:50:13 154.9 cm Measured Weight Dosing 2021-07-08 11:50:13 85.00 kg Height/Length 2021-07-08 11:47:31 154.9 cm Measured Weight Dosing 2021-07-08 11:47:31 85.00 kg Height/Length 2021-07-08 11:47:20 154.9 cm Measured Weight Dosing 2021-07-08 11:47:20 85.00 kg Systolic blood 2021-07-08 19:43:00 189 mm[Hg] [facility] Diastolic blood 2021-07-08 19:43:00 104 mm[Hg] Metho [facility] pressure Heart rate 2021-07-08 18:56:00 74 /min [facility] Body temperature 2021-07-08 18:56:00 36.39 Cathleen [facility] Body height 2021-07-08 18:56:00 157.5 cm [facility] Body weight 2021-07-08 18:56:00 72.938 kg [facility] BMI 2021-07-08 18:56:00 29.41 kg/m2 [facility] Oxygen saturation in 2021-07-08 18:56:00 100 /min [facility] Arterial blood by Pulse oximetry Respiratory rate 2021-06-18 16:36:00 11 /min [facility] Systolic (mm Hg) 2021-01-29 20:03:00 [facility]za rial [place] Diastolic (mm Hg) 2021-01-29 20:03:00 Mem orial [place] Systolic (mm Hg) 2021-01-29 19:40:00 Mendoza rial [place] Diastolic (mm Hg) 2021-01-29 19:40:00 Mem orial Vin Systolic (mm Hg) 2021-01-29 18:05:00 [facility] rial Vin Diastolic (mm Hg) 2021-01-29 18:05:00 Mem o[facility] [place] Respitory Rate 2021-01-29 16:55:00 Memori al [place] Temperature Oral (F) 2021-01-29 16:45:00 97.3 F [facility] [place] Respitory Rate 2021-01-29 16:45:00 [facility] [place] Respitory Rate 2021-01-29 16:30:00 [facility] [place] Temperature Oral (F) 2021-01-29 13:10:00 97.6 F [facility] [place] Systolic (mm Hg) 2021-01-27 05:00:00 [facility] rial Vin Diastolic (mm Hg) 2021-01-27 05:00:00 Mem orial [place] Systolic (mm Hg) 2021-01-27 04:00:00 [facility]za rial Vin Diastolic (mm Hg) 2021-01-27 04:00:00 Mem orial Vin Systolic (mm Hg) 2021-01-27 03:00:00 Mendoza rial [place] Diastolic (mm Hg) 2021-01-27 03:00:00 Mem orial Vin Respitory Rate 2021-01-26 19:00:00 [facility] [place] Respitory Rate 2021-01-26 18:00:00 Memori al Vin Respitory Rate 2021-01-26 17:00:00 Memori al [place] Temperature Oral (F) 2021-01-22 13:00:00 97.6 F [facility] [place] Height 2021-01-21 18:25:00 149.86 cm [facility] [place] Weight 2021-01-21 18:25:00 [facility] [place] BMI Calculated 2021-01-21 18:25:00 [facility] Height 2021-01-21 17:09:00 157.48 cm [facility] [place] Height 2021-01-21 13:09:00 157.48 cm [facility] [place] Weight 2021-01-21 13:09:00 [facility] BMI Calculated 2021-01-21 13:09:00 [facility] [place] Heart Rate 2021-01-21 12:50:00 [facility] Systolic (mm Hg) 2020-12-24 15:43:00 Mendoza rial Vin Diastolic (mm Hg) 2020-12-24 15:43:00 [facility] Heart Rate 2020-12-24 15:43:00 [facility] [place] Height 2020-12-24 15:43:00 154.94 cm [facility] [place] Weight 2020-12-24 15:43:00 [facility] [place] BMI Calculated 2020-12-24 15:43:00 [facility] Systolic (mm Hg) 2016-07-30 14:00:00 Mendoza rial Vin Diastolic (mm Hg) 2016-07-30 14:00:00 [facility] Respitory Rate 2016-07-30 14:00:00 [facility] [place] Heart Rate 2016-07-30 14:00:00 [facility] Temperature Oral (F) 2016-07-30 14:00:00 97.4 F [facility] [place] Systolic (mm Hg) 2016-07-30 10:45:00 Mendoza rial [place] Diastolic (mm Hg) 2016-07-30 10:45:00 [facility] [place] Heart Rate 2016-07-30 10:45:00 [facility] [place] Temperature Oral (F) 2016-07-30 10:45:00 97.2 F [facility] Respitory Rate 2016-07-30 10:45:00 [facility] [place] Heart Rate 2016-07-30 06:35:00 [facility] [place] Temperature Oral (F) 2016-07-30 06:35:00 97.0 F [facility] [place] Respitory Rate 2016-07-30 06:35:00 [facility] Systolic (mm Hg) 2016-07-30 06:35:00 M[facility]za rial Vin Diastolic (mm Hg) 2016-07-30 06:35:00 [facility] [place] Weight 2016-07-24 02:13:00 [facility] BMI Calculated 2016-07-24 02:13:00 [facility] Height 2016-07-24 02:13:00 160.02 cm [facility] Respitory Rate 2016-06-15 15:00:00 [facility] Systolic (mm Hg) 2016-06-15 15:00:00 Mendoza rial Vin Diastolic (mm Hg) 2016-06-15 15:00:00 [facility] [place] Respitory Rate 2016-06-15 14:00:00 [facility] [place] Systolic (mm Hg) 2016-06-15 14:00:00 Mendoza rial Vin Diastolic (mm Hg) 2016-06-15 14:00:00 [facility] Respitory Rate 2016-06-15 13:29:00 [facility] Systolic (mm Hg) 2016-06-15 13:29:00 Mendoza rial [place] Diastolic (mm Hg) 2016-06-15 13:29:00 [facility] Temperature Oral (F) 2016-06-14 10:56:00 97.1 F [facility] [place] Temperature Oral (F) 2016-06-14 06:55:00 97.1 F [facility] [place] Temperature Oral (F) 2016-06-12 10:00:00 96.8 F [facility] Weight 2016-06-11 04:25:00 [facility] [place] Height 2016-06-11 04:25:00 160.02 cm [facility] BMI Calculated 2016-06-11 04:25:00 [facility] Heart Rate 2016-06-11 02:04:00 [facility] Heart Rate 2016-06-11 00:00:00 [facility] Heart Rate 2016-06-10 20:30:00 [facility] Weight 2016-06-10 16:04:00 [facility] BMI Calculated 2016-06-10 16:04:00 [facility] Height 2016-06-10 16:04:00 160.02 cm [facility] [place] Temperature Oral (F) 2014-06-26 15:12:00 98.0 F [facility] Systolic (mm Hg) 2014-06-26 15:12:00 Mendoza rial [place] Heart Rate 2014-06-26 15:12:00 [facility] Diastolic (mm Hg) 2014-06-26 15:12:00 [facility] [place] Respitory Rate 2014-06-26 15:12:00 [facility] Systolic (mm Hg) 2014-06-26 13:53:00 M[facility]za rial [facility] Diastolic (mm Hg) 2014-06-26 13:53:00 [facility] Respitory Rate 2014-06-26 13:53:00 [facility] [place] Temperature Oral (F) 2014-06-26 13:53:00 98.0 F [facility] [place] Temperature Oral (F) 2014-06-26 12:37:00 98.2 F [facility] Respitory Rate 2014-06-26 12:37:00 [facility] [place] Systolic (mm Hg) 2014-06-26 12:37:00 Mendoza rial [place] Diastolic (mm Hg) 2014-06-26 12:37:00 [facility] Heart Rate 2014-06-26 09:21:00 [facility] Heart Rate 2014-06-26 06:08:00 [facility] Height 2014-06-26 05:35:00 154.94 cm [facility] [place] Weight 2014-06-26 05:35:00 [facility] BMI Calculated 2014-06-26 05:35:00 [facility] Respitory Rate 2013-04-15 06:10:00 [facility] Diastolic (mm Hg) 2013-04-15 06:10:00 Mem [facility] [place] Heart Rate 2013-04-15 06:10:00 [facility] [place] Systolic (mm Hg) 2013-04-15 06:10:00 [facility] [place] Temperature Oral (F) 2013-04-15 06:10:00 98.7 F [facility] [place] Respitory Rate 2013-04-15 05:37:00 [facility] [place] Diastolic (mm Hg) 2013-04-15 05:37:00 [facility] Systolic (mm Hg) 2013-04-15 05:37:00 Mendoza rial [place] Temperature Oral (F) 2013-04-15 05:37:00 98.2 F [facility] Heart Rate 2013-04-15 05:37:00 [facility] [place] Height 2013-04-15 02:06:00 160.02 cm [facility] [place] Weight 2013-04-15 02:06:00 [facility] Temperature Oral (F) 2013-04-15 02:06:00 98.6 F [facility] Respitory Rate 2013-04-15 02:06:00 [facility] [place] Heart Rate 2013-04-15 02:06:00 [facility] [place] Diastolic (mm Hg) 2013-04-15 02:06:00 [facility] [place] Systolic (mm Hg) 2013-04-15 02:06:00 [facility] Weight 2012-03-14 21:33:00 [facility] Systolic (mm Hg) 2011-12-01 00:33:00 Mendoza rial [place] Respitory Rate 2011-12-01 00:33:00 [facility] [place] Heart Rate 2011-12-01 00:33:00 [facility] Diastolic (mm Hg) 2011-12-01 00:33:00 [facility] [place] Temperature Oral (F) 2011-12-01 00:33:00 99.6 F [facility] Diastolic (mm Hg) 2011-11-30 21:00:00 [facility] Heart Rate 2011-11-30 21:00:00 [facility] [place] Respitory Rate 2011-11-30 21:00:00 [facility] Systolic (mm Hg) 2011-11-30 21:00:00 Mendoza rial [place] Temperature Oral (F) 2011-11-30 21:00:00 99.8 F [facility] Respitory Rate 2011-11-30 16:30:00 [facility] Systolic (mm Hg) 2011-11-30 16:30:00 Mendoza rial [place] Diastolic (mm Hg) 2011-11-30 16:30:00 [facility] [place] Heart Rate 2011-11-30 16:30:00 [facility] Temperature Oral (F) 2011-11-30 16:30:00 99.8 F [facility] Weight 2011-11-29 11:40:00 [facility] [place] Height 2011-11-29 11:40:00 157.48 cm [facility] Weight 2011-11-28 17:16:00 [facility] Weight 2011-09-18 13:30:00 [facility] [place] Height 2011-09-18 13:30:00 154.94 cm [facility] [place] Heart Rate 2011-09-09 13:31:00 [facility] Systolic (mm Hg) 2011-09-09 13:02:00 M[facility]za rial [facility] Diastolic (mm Hg) 2011-09-09 13:02:00 [facility] Respitory Rate 2011-09-09 13:02:00 [facility] Temperature Oral (F) 2011-09-09 13:02:00 97.5 F [facility] [place] Diastolic (mm Hg) 2011-09-09 08:00:00 [facility] [place] Heart Rate 2011-09-09 08:00:00 [facility] Temperature Oral (F) 2011-09-09 08:00:00 98.6 F [facility] Respitory Rate 2011-09-09 08:00:00 [facility] [place] Systolic (mm Hg) 2011-09-09 08:00:00 Mendoza rial [place] Respitory Rate 2011-09-09 04:55:00 [facility] [place] Diastolic (mm Hg) 2011-09-09 04:55:00 [facility] [place] Systolic (mm Hg) 2011-09-09 04:55:00 [facility] Heart Rate 2011-09-09 04:55:00 [facility] [place] Temperature Oral (F) 2011-09-09 00:55:00 98.7 F [facility] Weight 2011-09-01 19:59:00 [facility] [place] Height 2011-09-01 19:59:00 154.94 cm [facility] [place] Height 2011-09-01 07:01:00 154.94 cm [facility] [place] Weight 2011-09-01 07:01:00 [facility] Respitory Rate 2011-08-23 18:00:00 [facility] Heart Rate 2011-08-23 18:00:00 [facility] Systolic (mm Hg) 2011-08-23 18:00:00 Mendoza rial [place] Diastolic (mm Hg) 2011-08-23 18:00:00 [facility] [place] Temperature Oral (F) 2011-08-23 18:00:00 97.7 F [facility] Heart Rate 2011-08-23 14:24:00 [facility] Temperature Oral (F) 2011-08-23 14:24:00 98.2 F [facility] Diastolic (mm Hg) 2011-08-23 14:24:00 [facility] [place] Systolic (mm Hg) 2011-08-23 14:24:00 [facility] [place] Respitory Rate 2011-08-23 14:24:00 [facility] Systolic (mm Hg) 2011-08-23 11:15:00 [facility] Diastolic (mm Hg) 2011-08-23 11:15:00 [facility] [place] Temperature Oral (F) 2011-08-23 11:00:00 98.3 F [facility] [place] Heart Rate 2011-08-23 11:00:00 [facility] Respitory Rate 2011-08-22 22:00:00 [facility] [place] Height 2011-08-20 09:12:00 154.94 cm [facility] [place] Weight 2011-08-20 09:12:00 [facility] [place] Height 2011-08-19 20:28:00 154.94 cm [facility] [place] Weight 2011-08-19 20:28:00 [facility] Procedures Procedure Date / Time Performing Clinician Source Performed POC GLUCOSE 2021-06-18 17:00:00 Aurelio Schumacher spital HEPATITIS B SURFACE 2021-06-18 14:07:00 [facility]TIGEN VANCOMYCIN LEVEL, RANDOM 2021-06-18 13:44:00 Char Viramontes [facility] HC COMPLETE BLD COUNT 2021-06-18 13:44:00 [facility] BASIC METABOLIC PANEL 2021-06-18 11:27:00 [facility] ESTIMATED GFR 2021-06-18 11:27:00 Aurelio Schumacher spital POC GLUCOSE 2021-06-18 08:07:00 Aurelio Schumacher spital HEMODIALYSIS 2021-06-18 06:16:53 Bill Cooper spital POC GLUCOSE 2021-06-18 01:26:00 Aurelio Schumacher spital POC GLUCOSE 2021-06-17 21:58:00 TheronpatricioAurelio taylor Ho spital HEMODIALYSIS 2021-06-17 18:25:45 Bill Cooper spital POC GLUCOSE 2021-06-17 17:36:00 Endy Aurelio Whyte spital POC GLUCOSE 2021-06-17 13:51:00 Theronmeir Aurelio Whyte spital BASIC METABOLIC PANEL 2021-06-17 11:16:00 [facility] HC COMPLETE BLD COUNT 2021-06-17 11:16:00 [facility] W/AUTO DIFF ESTIMATED GFR 2021-06-17 11:16:00 [facility] POC GLUCOSE 2021-06-17 02:50:00 [facility] CONSULT TO OSTOMY CARE 2021-06-17 00:31:48 [facility] NURSE HC COMPLETE BLD COUNT 2021-06-16 23:31:00 [facility] W/AUTO DIFF BASIC METABOLIC PANEL 2021-06-16 23:31:00 [facility] ESTIMATED GFR 2021-06-16 23:31:00 [facility] POC GLUCOSE 2021-06-16 23:19:00 [facility] OR [place] < 1 HOUR 2021-06-16 22:49:00 Mando Diaz [facility] DiazHsi ANAEROBIC CULTURE 2021-06-16 22:36:00 Mando Diaz [facility] DiazHsviraj FUNGUS CULTURE 2021-06-16 22:36:00 [facility] 2021-06-16 22:36:00 Mando Diaz [facility] Diaz-Hsi GRAM STAIN 2021-06-16 22:36:00 Mando Diaz [facility] DiazHsi ND AN ELECTIVE 2021-06-16 21:30:00 Jocelyne Zepeda [facility] SUPRAGLOTTIC AIRWAY AORTOGRAPHY, POSSIBLE 2021-06-16 21:17:00 Mando Diaz [facility] ANGIOPLASTY Diaz-Hsi POC , URINE 2021-06-16 20:46:00 [facility] POTASSIUM LEVEL 2021-06-16 17:28:00 Isabell Dickerson POC GLUCOSE 2021-06-16 11:39:00 [facility] BASIC METABOLIC PANEL 2021-06-16 10:08:00 [facility] HC COMPLETE BLD COUNT 2021-06-16 10:08:00 [facility] W/AUTO DIFF PROTHROMBIN TIME WITH INR 2021-06-16 10:08:00 [facility] PARTIAL THROMBOPLASTIN 2021-06-16 10:08:00 [facility] TIME (PTT) TYPE AND SCREEN 2021-06-16 10:08:00 [facility] GFR 2021-06-16 10:08:00 [facility] POC GLUCOSE 2021-06-16 01:59:00 [facility] POC GLUCOSE 2021-06-15 22:58:00 [facility] COVID-19 QUALITATIVE 2021-06-15 [facility]:29[facility]SE 2021-06-15 17:42:00 [facility] HEMODIALYSIS 2021-06-15 16:17:54 Delfino Akbar [facility] POC GLUCOSE 2021-06-15 15:41:00 [facility] POC GLUCOSE 2021-06-15 13:44:00 [facility] POC GLUCOSE 2021-06-15 13:00:00 [facility] ECG 12-LEAD 2021-06-15 12:48:21 Leni Barker HC COMPLETE BLD COUNT 2021-06-15 11:42:00 [facility] W/AUTO DIFF BASIC METABOLIC PANEL 2021-06-15 11:42:00 [facility] ESTIMATED GFR 2021-06-15 11:42:00 [facility] POC GLUCOSE 2021-06-15 01:31:00 [facility] US DUPLEX ARTERIAL LOWER 2021-06-14 21:55:33 [facility] EXTREMITY RIGHT POC GLUCOSE 2021-06-14 21:51:00 [facility] POC GLUCOSE 2021-06-14 17:36:00 [facility] POC GLUCOSE 2021-06-14 13:30:00 [facility] POC GLUCOSE 2021-06-14 13:29:00 [facility] HC COMPLETE BLD COUNT 2021-06-14 10:13:00 [facility] W/AUTO DIFF BASIC METABOLIC PANEL 2021-06-14 10:13:00 [facility] ESTIMATED GFR 2021-06-14 10:13:00 [facility] POC GLUCOSE 2021-06-14 02:45:00 [facility] POC GLUCOSE 2021-06-13 21:47:00 [facility] POC GLUCOSE 2021-06-13 20:46:00 [facility] CBC WITH PLATELET AND 2021-06-13 16:10:00 [facility] DIFFERENTIAL COMPREHENSIVE METABOLIC 2021-06-13 16:10:00 [facility] PANEL ESTIMATED GFR 2021-06-13 16:10:00 [facility] HEMODIALYSIS 2021-06-13 15:26:35 [facility] POC GLUCOSE 2021-06-13 14:30:00 [facility] VANCOMYCIN LEVEL, RANDOM 2021-06-13 10:59:00 Juwan You [facility] POC GLUCOSE 2021-06-13 10:40:00 [facility] POC GLUCOSE 2021-06-13 02:28:00 [facility] POC GLUCOSE 2021-06-13 00:16:00 [facility] POC GLUCOSE 2021-06-12 23:31:00 [facility] POC GLUCOSE 2021-06-12 23:14:00 [facility] POC GLUCOSE 2021-06-12 18:19:00 [facility] POC GLUCOSE 2021-06-12 14:37:00 [facility] POC GLUCOSE 2021-06-12 14:01:00 [facility] POC GLUCOSE 2021-06-12 03:03:00 Holden Nagel spigbae Ramírez CT HEAD WO CONTRAST 2021-06-12 00:53:00 Robe Holden [facility] Ramírez POC GLUCOSE 2021-06-11 18:08:00 Holden Nagel spital Ramírez POC GLUCOSE 2021-06-11 13:39:00 Holden Nagel Ho spital Ramírez HEMODIALYSIS 2021-06-11 12:38:38 Delfino Akbar [facility] POC GLUCOSE 2021-06-11 02:01:00 Holden Nagel Ho spital Ramírez POC GLUCOSE 2021-06-10 22:15:00 Holden Nagel spital Ramírez POC GLUCOSE 2021-06-10 17:39:00 Holden Nagel spital Ramírez POC GLUCOSE 2021-06-10 16:05:00 Holden Nagel spital Ramírez TISSUE CULTURE 2021-06-10 15:08:00 Juwan You spital GRAM STAIN 2021-06-10 15:08:00 Juwan You spital ANAEROBIC CULTURE 2021-06-10 15:04:00 Pati, [facility] FUNGUS CULTURE 2021-06-10 15:04:00 Pati Juwancaron Whyte spital AEROBIC CULTURE 2021-06-10 15:04:00 Pati, Juwancaron Whyte spital AFB CULTURE 2021-06-10 15:04:00 Pati, Stuart Rastafari spital GRAM STAIN 2021-06-10 15:04:00 Pati Juwancaron Whyte spital AFB STAIN 2021-06-10 15:04:00 Pati, Juwan Rastafari spital ND AN ELECTIVE 2021-06-10 14:26:00 Sofi Roach spital SUPRAGLOTTIC AIRWAY Marquita INCISION AND DRAINAGE, 2021-06-10 14:26:00 , [facility] LOWER EXTREMITY HC COMPLETE BLD COUNT 2021-06-10 10:20:00 , [facility] W/AUTO DIFF BASIC METABOLIC PANEL 2021-06-10 10:20:00 , [facility] PROTHROMBIN TIME WITH INR 2021-06-10 10:20:00 , [facility] PARTIAL THROMBOPLASTIN 2021-06-10 10:20:00 [facility] TIME (PTT) TYPE AND SCREEN 2021-06-10 10:20:00 Holden Nagel spital Ramírez ESTIMATED GFR 2021-06-10 10:20:00 Juwan You spital POC GLUCOSE 2021-06-10 03:11:00 Holden Nagel spital Ramírez POC GLUCOSE 2021-06-10 01:30:00 Holden Nagel spital Ramírez POC GLUCOSE 2021-06-09 22:22:00 Holden Nagel spital Ramírez POC GLUCOSE 2021-06-09 13:55:00 Holden Nagel spital Ramírez HEMODIALYSIS 2021-06-09 13:20:01 Delfino Akbar [facility] VANCOMYCIN LEVEL, RANDOM 2021-06-09 11:46:00 Char Viramontes [facility] POC GLUCOSE 2021-06-09 02:06:00 Holden Nagel spital Ramírez POC GLUCOSE 2021-06-08 22:23:00 Holden Nagel spital Ramírez POC GLUCOSE 2021-06-08 17:53:00 Holden Nagel spital Ramírez HC COMPLETE BLD COUNT 2021-06-08 16:06:00 [facility] W/AUTO DIFF POC GLUCOSE 2021-06-08 13:56:00 Holden Nagel spital Ramírez URINE CULTURE 2021-06-08 03:56:00 Holden Nagel spital Ramírez URINALYSIS SCREEN AND 2021-06-08 03:32:00 [facility] MICROSCOPY, WITH REFLEX TO CULTURE POC GLUCOSE 2021-06-08 01:15:00 Holden Nagel spital Ramírez POC GLUCOSE 2021-06-07 22:07:00 Holden Nagel spital Ramírez POC GLUCOSE 2021-06-07 18:01:00 Holden Nagel spital Ramírez BASIC METABOLIC PANEL 2021-06-07 14:15:00 [facility] ESTIMATED GFR 2021-06-07 14:15:00 Holden Nagel spital Ramírez POC GLUCOSE 2021-06-07 13:56:00 Holden Nagel spital Ramírez POC GLUCOSE 2021-06-07 02:54:00 Holden Nagel spital Ramírez CT LOWER EXTREMITY W 2021-06-07 01:22:59 [facility] CONTRAST RIGHT POC GLUCOSE 2021-06-06 23:50:00 Holden Nagel spital Ramírez POC GLUCOSE 2021-06-06 17:31:00 Holden Nagel spital Ramírez HEMODIALYSIS 2021-06-06 15:05:52 Delfino Akbar [facility] POC GLUCOSE 2021-06-06 14:03:00 Holden Nagel spital Ramírez HC COMPLETE BLD COUNT 2021-06-06 10:31:00 [facility] W/AUTO DIFF BASIC METABOLIC PANEL 2021-06-06 10:31:00 [facility] ESTIMATED GFR 2021-06-06 10:31:00 Holden Nagel spital Ramírez POC GLUCOSE 2021-06-06 10:14:00 Holden Nagel spital Ramírez POC GLUCOSE 2021-06-06 06:26:00 Holden Nagel spital Ramírez POC GLUCOSE 2021-06-06 02:41:00 Holden Nagel spital Ramírez POC GLUCOSE 2021-06-05 19:51:00 Holden Nagel spital Ramírez BASIC METABOLIC PANEL 2021-06-05 18:06:00 [facility] HC COMPLETE BLD COUNT 2021-06-05 18:06:00 [facility] W/AUTO DIFF ESTIMATED GFR 2021-06-05 18:06:00 Holden Nagel spital Ramírez POC GLUCOSE 2021-06-05 17:48:00 Holden Nagel spital Ramírez ANAEROBIC CULTURE 2021-06-05 17:10:00 [facility] 2021-06-05 16:59:00 Pati [facility] FUNGUS CULTURE 2021-06-05 16:59:00 Juwan You spital AEROBIC CULTURE 2021-06-05 16:59:00 Juwan You spital AFB CULTURE 2021-06-05 16:59:00 Juwan You spital FUNGUS SMEAR 2021-06-05 16:59:00 Juwan You spital AFB STAIN 2021-06-05 16:59:00 Juwan You spital ND AN ELECTIVE 2021-06-05 16:52:08 Herrera [facility] SUPRAGLOTTIC AIRWAY TISSUE CULTURE 2021-06-05 16:50:00 Juwan You spital GRAM STAIN 2021-06-05 16:50:00 Juwan You spital DEBRIDEMENT, LOWER 2021-06-05 16:16:00 Juwan You [facility] EXTREMITY POC GLUCOSE 2021-06-05 13:32:00 Holden Nagel Ho spigabe Ramírez TROPONIN T 2021-06-05 10:58:00 Wander [facility] H ospital ABO AND RH CONFIRMATION 2021-06-05 10:54:00 Isra [facility] Vipin BASIC METABOLIC PANEL 2021-06-05 10:53:00 [facility] HC COMPLETE BLD COUNT 2021-06-05 10:53:00 [facility] W/AUTO DIFF ESTIMATED GFR 2021-06-05 10:53:00 Sivan Stewart [facility] PROTHROMBIN TIME WITH INR 2021-06-05 10:52:00 [facility] PARTIAL THROMBOPLASTIN 2021-06-05 10:52:[address] [facility] TIME (PTT) HCG QUALITATIVE, SERUM 2021-06-05 10:52:00 Myron Fernandes [facility] SCREEN POC GLUCOSE 2021-06-05 09:40:00 Rachel Brasher spital [place] BLOOD CULTURE, AEROBIC & 2021-06-05 08:27:00 Rachel Brasher [facility] ANAEROBIC [place] POC GLUCOSE 2021-06-05 07:42:00 Rachel Brasher Ho spital [place] POC GLUCOSE 2021-06-05 06:57:00 Rachel Brasher Ho spital [place] POC GLUCOSE 2021-06-05 06:10:00 Holden Nagel spigabe Ramírez BLOOD CULTURE, AEROBIC & 2021-06-05 04:31:00 Rachel Brasher [facility] ANAEROBIC [place] POC GLUCOSE 2021-06-05 04:04:00 Rachel Brasher Ho spital [place] POC GLUCOSE 2021-06-05 03:51:00 Rachel Brasher spital [place] TYPE AND SCREEN 2021-06-05 03:40:00 Rachel Brasher Ho spital [place] POC GLUCOSE 2021-06-05 03:05:00 Rachel Brasher Ho spital [place] POC GLUCOSE 2021-06-05 02:23:00 Rachel Brasher spital [place] COVID-19 QUALITATIVE 2021-06-05 02:08:00 [facility] HC COMPLETE BLD COUNT 2021-06-05 01:24:00 [facility]/AUTO DIFF PROTHROMBIN TIME WITH INR 2021-06-05 01:24:00 [facility] PARTIAL THROMBOPLASTIN 2021-06-05 01:24:00 [facility] TIME (PTT) COMPREHENSIVE METABOLIC 2021-06-05 01:24:00 [facility] PANEL CREATINE KINASE, TOTAL 2021-06-05 01:24:00 [facility] B NATRIURETIC PEPTIDE 2021-06-05 01:24:00 [facility] F [facility] TROPONIN T 2021-06-05 01:24:00 Char Viramontes [facility] ospigabe ESTIMATED GFR 2021-06-05 01:24:00 [facility] ECG ED PRELIMINARY 2021-06-05 00:31:28 [facility] INTERPRETATION ECG 12-LEAD 2021-06-05 00:19:17 Rachel Brasher spital [place] POC GLUCOSE 2021-05-25 18:04:00 Aw, [facility] POC GLUCOSE 2021-05-25 14:00:00 Awcarlos alberto, [facility] CBC HEMOGRAM 2021-05-25 10:12:00 carlos alberto, [facility] BASIC METABOLIC PANEL 2021-05-25 10:12:00 [facility] ESTIMATED GFR 2021-05-25 10:12:00 Awe, [facility] POC GLUCOSE 2021-05-25 02:49:00 Awe, [facility] POC GLUCOSE 2021-05-24 23:33:00 [facility] P[facility] 2021-05-24 17:56:00 Awe, [facility] POC GLUCOSE 2021-05-24 13:59:00 Awe, [facility] CBC HEMOGRAM 2021-05-24 10:12:00 Awe, [facility] BASIC METABOLIC PANEL 2021-05-24 10:12:00 Awe, [facility] ESTIMATED GFR 2021-05-24 10:12:00 Awe, [facility] POC GLUCOSE 2021-05-24 09:59:00 Awe, [facility] POC GLUCOSE 2021-05-24 02:26:00 Awe, [facility] POC GLUCOSE 2021-05-24 00:03:00 Awe, [facility] TRANSFUSE RED BLOOD CELLS 2021-05-23 22:30:00 [facility] TRANSFUSE RED BLOOD CELLS 2021-05-23 21:30:00 [facility] POC GLUCOSE 2021-05-23 19:03:00 Awe, [facility] TYPE AND SCREEN 2021-05-23 14:38:00 [facility] HC COMPLETE BLD COUNT 2021-05-23 14:38:00 Elizabeth Viramontesradha [facility] W/AUTO DIFF PREPARE RBC 2021-05-23 14:38:00 Viramontes [facility] ospital PREPARE PLATELET PHERESIS 2021-05-23 14:38:00 [facility] POC GLUCOSE 2021-05-23 14:35:00 Awe, [facility] HEMODIALYSIS 2021-05-23 13:42:30 [facility] CBC HEMOGRAM 2021-05-23 12:31:00 Awe, Marilu Arvin [facility] BASIC METABOLIC PANEL 2021-05-23 12:31:00 Awe, Marilu Arvin [facility] ESTIMATED GFR 2021-05-23 12:31:00 [facility]-05-23 11:22:00 Awe, Marilu Arvin [facility] POC GLUCOSE 2021-05-23 03:30:00 [facility] 2021-05-22 23:20:00 [facility] 2021-05-22 17[facility]20:00 [facility] 2021-05-22 13:27:00 [facility]OLIC [facility]EL 2021-05-22 12:31:00 Nikki Haynes [facility] Rahel MAGNESIUM LEVEL 2021-05-22 12:31:00 Nikki Haynes [facility] CBC HEMOGRAM 2021-05-22 12:31:00 [facility] ESTIMATED GFR 2021-05-22 12:31:00 [facility] POC GLUCOSE 2021-05-22 10:54:00 [facility] 2021-05-22 07:28:00 [facility] 2021-05-22 01:11:00 [facility] HEPATITIS B SURFACE 2021-05-21 21:08:00 [facility] ANTIBODY HEMODIALYSIS 2021-05-21 20:57:40 [facility] POC GLUCOSE 2021-05-21 17:57:00 [facility] P[facility]SE 2021-05-21 13:55:00 Marilu Koch [facility] POC GLUCOSE 2021-05-21 10:41:00 Kye Barber COVID-19 ANTI-SPIKE IGG 2021-05-21 07:43:00 [facility]ITER Esa BASIC METABOLIC PANEL 2021-05-21 07:43:00 [facility] Rahel MAGNESIUM LEVEL 2021-05-21 07:43:00 [place] [facility] ospital Rahel CBC HEMOGRAM 2021-05-21 07:43:00 [place] [facility] ospital Rahel COVID-19 SEROLOGY PATIENT 2021-05-21 07:43:00 Ishan [facility] SURVEILLANCE Esa ESTIMATED GFR 2021-05-21 07:43:00 Andre Sofia LACTIC ACID LEVEL 2021-05-21 07:43:00 Leodan Stevenson [facility] POC GLUCOSE 2021-05-21 06:35:00 Kye Barber HC COMPLETE BLD COUNT 2021-05-21 02:49:00 [facility] W/AUTO DIFF BASIC METABOLIC PANEL 2021-05-21 02:49:00 [facility] LACTIC ACID LEVEL 2021-05-21 02:49:00 [facility] OSMOLALITY, SERUM 2021-05-21 02:49:00 [facility] BETA HYDROXYBUTYRATE 2021-05-21 02:49:00 [facility] PROCALCITONIN 2021-05-21 02:49:00 [facility] ESTIMATED GFR 2021-05-21 02:49:00 [facility] POC GLUCOSE 2021-05-21 02:34:00 Kye Barber spital HC COMPLETE BLD COUNT 2021-05-21 00:28:00 [facility] W/AUTO DIFF POC GLUCOSE 2021-05-20 23:57:00 Kye Barber Ho spital BASIC METABOLIC PANEL 2021-05-20 23:20:00 Andre Sofia [facility] [place] LACTIC ACID LEVEL 2021-05-20 23:20:00 Andre Sofia [facility] [place] ESTIMATED GFR 2021-05-20 23:20:00 Andre Sofia [...] spital POC GLUCOSE 2021-05-20 17:46:00 Kye Barber Ho spital TRANSFUSE RED BLOOD CELLS 2021-05-20 17:21:00 Andre Sofia [facility] [place] TRANSFUSE PLATELET 2021-05-20 15:52:00 [facility] PHERESIS BASIC METABOLIC PANEL 2021-05-20 15:25:00 Andre Sofia [facility] [place] ESTIMATED GFR 2021-05-20 15:25:00 Andre Sofia [facility] [place] POC GLUCOSE 2021-05-20 14:48:00 Kye Barber spital HEMODIALYSIS 2021-05-20 11:31:20 Delfino Akbar [facility] POC GLUCOSE 2021-05-20 10:44:00 Kye Barber spital HEPATITIS B SURFACE 2021-05-20 08:49:00 [facility] ANTIGEN HEPATITIS B SURFACE AB, 2021-05-20 08:49:00 [facility] QUANTITATIVE HC COMPLETE BLD COUNT 2021-05-20 08:25:00 [facility] W/AUTO DIFF BASIC METABOLIC PANEL 2021-05-20 08:25:00 [facility] MAGNESIUM LEVEL 2021-05-20 08:25:00 [facility] ospital PHOSPHORUS LEVEL 2021-05-20 08:25:00 [facility] PROTHROMBIN TIME WITH INR 2021-05-20 08:25:00 [facility] 2021-05-20 08:25:00 Juwan You spital HEMOGLOBIN A1C 2021-05-20 08:25:00 [facility] Rahel POC GLUCOSE 2021-05-20 06:34:00 Kye Barber spital ARTERIAL BLOOD GAS 2021-05-20 04:36:00 [facility] ECG 12-LEAD 2021-05-20 03:42:28 [facility] Rastafari Ho spital PROTHROMBIN TIME WITH INR 2021-05-20 02:54:00 [facility] HC COMPLETE BLD COUNT 2021-05-20 02:54:00 Graham [facility] W/AUTO DIFF BASIC METABOLIC PANEL 2021-05-20 02:54:00 Graham [facility] LACTIC ACID LEVEL 2021-05-20 02:54:00 [facility] VENOUS BLOOD GAS 2021-05-20 02:54:00 Graham Alcocer Raj Taylor ospital ESTIMATED GFR 2021-05-20 02:54:00 [facility] Rastafari Ho spital POC GLUCOSE 2021-05-20 02:54:00 Kye Barber spital XR CHEST 1 VW PORTABLE 2021-05-20 02:51:13 Stevenson[facility] [place] < [facility] HOUR 2021-05-20 01:30:15 Juwan You spital TRANSFUSE RED BLOOD CELLS 2021-05-20 00:59:00 Juwan You [facility] [place] AN ELECTIVE 2021-05-20 00:53:01 Sukhjinder Medina spital SUPRAGLOTTIC AIRWAY [place] INCISION AND DRAINAGE, 2021-05-20 00:45:00 Pati [facility] HEMATOMA HC COMPLETE BLD COUNT 2021-05-19 22:13:00 [facility] W/AUTO DIFF BASIC METABOLIC PANEL 2021-05-19 22:13:00 [facility] PROTHROMBIN TIME WITH INR 2021-05-19 22:13:00 [facility] PARTIAL THROMBOPLASTIN 2021-05-19 22:13:00 [facility] TIME (PTT) MAGNESIUM LEVEL 2021-05-19 22:13:00 Wander [facility] ospital ESTIMATED GFR 2021-05-19 22:13:00 Juwan You spital POC GLUCOSE 2021-05-19 22:00:00 Errol Luther [facility] SURGICAL PATHOLOGY REQUEST 2021-05-19 21:47:00 Errol Luther [facility] POC GLUCOSE 2021-05-19 21:17:00 Juwan You spital ACTIVATED CLOTTING TIME 2021-05-19 19:12:00 Kye Barber [facility] ND AN ELECTIVE 2021-05-19 18:11:04 Sukhjinder Medina spital SUPRAGLOTTIC AIRWAY [place] LOWER EXTREMITY 2021-05-19 17:59:00 Juwan You spital ANGIOGRAM,POSSIBLE ANGIOPLASTY,POSSIBLE STENT XR CHEST 1 VW PORTABLE 2021-05-19 15:47:37 Pati [facility] ESTIMATED GFR 2021-05-19 14:34:00 Juwan You spital POC PANEL 2021-05-19 14:34:00 Juwan You spital TYPE AND SCREEN 2021-05-19 14:05:00 Isabell Dickerson PREPARE RBC 2021-05-19 14:05:00 Char Viramontes ospital PREPARE FRESH FROZEN 2021-05-19 14:05:00 Char Viramontes [facility] PLASMA PREPARE PLATELET PHERESIS 2021-05-19 14:05:00 Char Viramontes [facility] BASIC METABOLIC PANEL 2021-05-19 14:00:00 Jayla [facility] Larry Romero PROTHROMBIN TIME WITH INR 2021-05-19 14:00:00 Jayla [facility] Larry Romero HC COMPLETE BLD COUNT 2021-05-19 14:00:00 Jayla [facility] W/AUTO DIFF Larry Romero ABO AND RH CONFIRMATION 2021-05-19 14:00:00 Juwan You [facility] ESTIMATED GFR 2021-05-19 14:00:00 Isabell Dickerson COVID-19 QUALITATIVE 2021-05-19 12:40:00 [facility]CLEARANCE 2021-05-13 06:01:00 Doctor Unassigned, [facility] FORMS [facility] DUPLEX ARTERIAL LOWER 2021-05-12 15:21:31 Juwan You [facility] EXTREMITY BILATERAL Emergency department visit 2013-04-15 05:00:00 M yanet Banuelos for the evaluation and management of a patient, which requires these 3 kamara components within the constraints imposed by the urgency of the patient's clinical condition and/or mental status: A comprehensive history; A comprehensi Injection or Infusion of 2013-04-15 05:00:00 Blas Banuelos Other Therapeutic or Prophylactic Substance Intravenous infusion, 2013-04-15 05:00:00 Brandon Chase hydration; each additional hour (List separately in addition to code for primary procedure) Therapeutic, prophylactic, 2013-04-15 05:00:00 M emorikatya Banuelos or diagnostic injection (specify substance or drug); each additional sequential intravenous push of a new substance/drug (List separately in addition to code for primary procedure) Therapeutic, prophylactic, 2013-04-15 05:00:00 [facility] [place] or diagnostic injection (specify substance or drug); intravenous push, single or initial substance/drug Eye procedure [facility] Colonoscopy [facility] EGD [facility] (esophagogastroduodenoscop y) gastric [facility] 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 Plan of Care Planned Activity Planned Date Details Comments Source Future Scheduled 2022-02-27 HEPATITIS B VACCINES Met [facility] Test 05:24:42 (1 of 3 - 3-dose series) [code = HEPATITIS B VACCINES (1 of 3 - 3-dose series)] Future Scheduled 2022-02-27 COVID-19 VACCINE (#1) [facility] Test 05:24:42 [code = COVID-19 VACCINE (#1)] Future Scheduled 2022-02-27 Pneumococcal Vaccine: [facility] Test 05:24:42 Pediatrics (0 to 5 Years) and At-Risk Patients (6 to 64 Years) (1 - PCV) [code = Pneumococcal Vaccine: Pediatrics (0 to 5 Years) and At-Risk Patients (6 to 64 Years) (1 - PCV)] Future Scheduled 2022-02-27 Hepatitis C screening [facility] Test 05:24:42 (procedure) [code = 336759279] Future Scheduled 2022-02-27 Screening for [facility] Test 05:24:42 malignant neoplasm of cervix (procedure) [code = 208570806] Future Scheduled 2022-02-27 INFLUENZA VACCINE Method [facility] Test 05:24:42 [code = INFLUENZA VACCINE] Future Scheduled 2021-07-22 COVID-19 VACCINE (1) Met [facility] Test 13:11:04 [code = COVID-19 VACCINE (1)] Future Scheduled 2021-07-22 Hepatitis C screening [facility] Test 13:11:04 (procedure) [code = 467843775] Future Scheduled 2021-07-22 Screening for [facility] Test 13:11:04 malignant neoplasm of cervix (procedure) [code = 935864423] Future Scheduled 2021-07-22 INFLUENZA VACCINE Method [facility] Test 13:11:04 [code = INFLUENZA VACCINE] Encounters Start End Encounter Admission Attending Care Care Encounter Source Date/Time Date/Time Type Type Clinicians Facility Department ID 2021-12-29 Outpatient [facility] [id number] [place] 11:56:31 [id number] [facility] 2021-12-19 Outpatient [facility] [id number] [place] 14:05:12 [id number] [facility] 2021-12-12 Outpatient [facility] [id number] [place] 12:11:07 [id number] [facility] 2021-12-05 Outpatient [facility] [id number] [place] 20:09:51 [id number] [facility] 2021-10-28 Outpatient [facility] [id number] [place] 17:04:22 [id number] [facility] 2021-07-22 Outpatient nullFlavo [facility] [id number] Memoria 00:10:30 r [facility] 05 [facility] 2021-07-22 Preadmit nullFlavo [id number] Memoria 00:10:[address] 2021-07-22 Outpatient nullFlavo [facility] [id number] Memoria 00:10:30 r [facility] 06 [facility] 2022-01-02 2022-01-02 Outpatient Deshazo_T DMG DMG [id number] [facility] 03:37:00 03:37:00 0715 Medica l [facility] 2021-12-02 2021-12-02 Travel 1.2.840.1 1.2.203.598 [id number] Methodi 00:00:00 00:00:[address] 3.430.2.7 0.2.7.3.698 Ho spita .3.135921 084.8 l .8 2021-11-13 2021-11-13 Transcribe [place], 1.2.840.1 [id number] Methodi 00:00:00 00:00:00 Orders Jose Miguel G. 24784.1.[address] 3.430.2.7 Hospit a .3.940941 l .8 2021-11-05 2021-11-05 Outpatient Deshazo_T DMG DMG [id number] [facility] 12:00:00 12:00:00 0518 Medica l Group 2021-10-29 2021-10-29 Telephone Rosy, 1.2.840.1 [id number] Methodi 00:00:00 00:00:[address] Mohamed 3.430.2.7 Hospit a .3.065965 l .8 2021-08-20 2021-08-20 Outpatient [place]azo_[place] [id number] -2021 [facility] 12:30:00 12:30:00 0302 Medica l Group 2021-07-08 2021-07-08 Office Ann, 1.2.840.1 [id number] Methodi 13:00:00 14:25:36 Visit Bessie 38576.1.[address] [place] 3.430.2.7 Hosp jo-ann .3.295673 l .8 2021-07-08 2021-07-08 Office Seth, 1.2.840.1 [id number] Methodi 12:54:05 14:25:36 Visit Bessie 75265.1.[address] [place] 3.430.2.7 Hosp jo-ann .3.809210 l .8 2021-07-08 2021-07-08 Telephone Anthony, 1.2.840.1 [id number] 2099 [id number] Methodi 00:00:00 00:00:[address] 3.430.2.7 Hospit a .3.366609 l .8 2021-07-08 2021-07-08 Travel 1.2.840.1 1.2.270.357 5862 [id number] Methodi 00:00:00 00:00:[address] 3.430.2.7 0.2.7.3.698 Ho spita .3.606003 084.8 l .8 2021-07-08 2021-07-08 Telephone Anthony, 1.2.840.1 [id number] [id number] Methodi 00:00:00 00:00:[address] 3.430.2.7 Hospit a .3.868115 l .8 2021-07-08 2021-07-08 Travel 1.2.840.1 1.2.604.791 2647 [id number] Methodi 00:00:00 00:00:[address] 3.430.2.7 0.2.7.3.698 Ho spita .3.195781 084.8 l .8 2021-07-03 2021-07-03 CAV Melany 2.16.840. 2.16.840.1. CLAC [id number] [facility]oted 19:00:00 20:00:00 Guillaume 1.660148. 952354.4.6. 467 Medical 4.6.94504 [id number] 2021-07-03 2021-07-03 Telephone Ann, 1.2.840.1 [id number] Methodi 00:00:00 00:00:[address] [place] 3.430.2.7 Hosp jo-ann .3.510503 l .8 2021-07-03 2021-07-03 Telephone Ann, 1.2.840.1 [id number] 2100 [id number] Methodi 00:00:00 00:00:[address] [place] 3.430.2.7 Hosp jo-ann .3.270209 l .8 2021-06-24 2021-06-[address] Deshazo_T [facility] [id number] Devoted 05:31:00 05:31:00 0104 Medica l Group 2021-06-23 2021-06-23 Telephone Anthony, 1.2.840.1 [id number] 2100 [id number] Methodi 00:00:00 00:00:[address] 3.430.2.7 Hospit a .3.947611 l .8 2021-06-23 2021-06-23 Telephone Anthony, 1.2.840.1 [id number] 2100 [id number] Methodi 00:00:00 00:00:[address] 3.430.2.7 Hospit a .3.684892 l .8 2021-06-04 2021-06-18 [facility] 1.2.840.1 [id number] Methodi 18:20:00 18:13:00 Encounter Rachel Brasher 17608.1.[address] [facility] 3.430.2.7 [facility] Kalen .3.444870 l Ulla, Omad .8 2021-06-04 2021-06-18 [facility] K. 1.2.840.1 [id number] Methodi 18:20:00 18:13:00 Encounter Rachel Brasher 47946.1.[address] [facility] 3.430.2.7 [facility] Kalen .3.477650 l Ulla, Omad .8 2021-06-16 2021-06-16 Anesthesia Yousif, 1.2.840.1 [id number] Methodi 23:59:59 23:59:59 Event Alesia Coelho 09380.1.[address] 3.430.2.7 Hospit a .3.264397 l .8 2021-06-16 2021-06-16 Surgery Joe, 1.2.840.1 [id number] Methodi 13:30:00 17:45:[address] [facility]-i 3.430.2.7 Hosp jo-ann .3.029646 l .8 2021-06-16 2021-06-16 Surgery Joe, 1.2.840.1 [id number] 8360 Methodi 13:30:00 17:45:[address] [facility] 3.430.2.7 Hosp jo-ann .3.360473 l .8 2021-06-16 2021-06-16 Anesthesia Jose Carlos, 1.2.840.1 [id number] 064 [id number] Methodi 15:19:00 17:19:00 Event Modestothi 53736.1.1 309 s t V. 3.430.2.7 Hospit a .3.664254 l .8 2021-06-16 2021-06-16 Anesthesia Jose Carlos, 1.2.840.1 [id number] Methodi 15:19:00 17:19:00 Event Modestothi 64051.1.1 309 s t V. 3.430.2.7 Hospit a .3.184119 l .8 2021-06-10 2021-06-10 Surgery Juwan You 1.2.840.1 [id number] Methodi 08:00:00 10:30:[address] 3.430.2.7 Hospit a .3.230721 l .8 2021-06-10 2021-06-10 Surgery PatiJuwan 1.2.840.1 [id number] Methodi 08:00:00 10:30:[address] 3.430.2.7 Hospit a .3.789654 l .8 2021-06-10 2021-06-10 Anesthesia Doc, 1.2.840.1 [id number] [id number] Methodi 08:26:00 09:40:00 Event Sofi 45123.1.[address] Marquita 3.430.2.7 Hosp jo-ann .3.361785 l .8 2021-06-10 2021-06-10 Anesthesia Doc, 1.2.840.1 [id number] Methodi 08:26:00 09:40:00 Event Sofi 79339.1.[address] Marquita 3.430.2.7 Hosp jo-ann .3.562111 l .8 2021-06-09 2021-06-09 Prep for Robert, 1.2.840.1 [id number] 467 [id number] Methodi 00:00:00 00:00:00 Surgery Gayle 68096.1.[address] 3.430.2.7 Hospit a .3.977402 l .8 2021-06-09 2021-06-09 Prep for Robert, 1.2.840.1 [id number] 858 [id number] Methodi 00:00:00 00:00:00 Surgery Gayle 46506.1.[address] 3.430.2.7 Hospit a .3.087781 l .8 2021-06-09 2021-06-09 Prep for Robert, 1.2.840.1 [id number] 887 [id number] Methodi 00:00:00 00:00:00 Surgery Gayle 14723.1.[address] 3.430.2.7 Hospit a .3.592836 l .8 2021-06-09 2021-06-09 Prep for Robert, 1.2.840.1 [id number] 860 [id number] Methodi 00:00:00 00:00:00 Surgery Gayle 60281.1.[address] 3.430.2.7 Hospit a .3.330517 l .8 2021-06-05 2021-06-05 Anesthesia Frankie Chowdhury 1.2.840.1 [id number] Methodi 10:16:00 11:41:00 Event Chandler Silverman 21754.1.[address] 3.430.2.7 Hospit a .3.278303 l .8 2021-06-05 2021-06-05 Anesthesia Frankie Chowdhury 1.2.840.1 [id number] Methodi 10:16:00 11:41:00 Event Chandler Silverman 99485.1.[address] 3.430.2.7 Hospit a .3.399688 l .8 2021-06-05 2021-06-05 Surgery Juwan You 1.2.840.1 [id number] [id number] Methodi 09:30:00 11:05:[address] 3.430.2.7 Hospit a .3.537391 l .8 2021-06-05 2021-06-05 Surgery Juwan You 1.2.840.1 [id number] 78833 Methodi 09:30:00 11:05:[address] 3.430.2.7 Hospit a .3.129323 l .8 2021-06-03 2021-06-03 Prep for Anthony, 1.2.840.1 [id number] Methodi 00:00:00 00:00:00 Surgery Forrest 67836.1.[address] 3.430.2.7 Hospit a .3.252838 l .8 2021-06-03 2021-06-03 Telephone Adelita, 1.2.840.1 [id number] Methodi 00:00:00 00:00:00 Crysandria 28708.1.1 218 s t 3.430.2.7 Hospit a .3.737210 l .8 2021-06-03 2021-06-03 Prep for Anthony, 1.2.840.1 [id number] Methodi 00:00:00 00:00:00 Surgery Forrest 17896.1.[address] 3.430.2.7 Hospit a .3.178311 l .8 2021-06-03 2021-06-03 Telephone Adelita, 1.2.840.1 [id number] Methodi 00:00:00 00:00:00 Crysandria 40294.1.1 218 s t 3.430.2.7 Hospit a .3.456158 l .8 2021-05-28 2021-05-28 Outpatient Adams_R DMG DMG [id number] 021 [facility] 05:00:00 05:00:00 1208 Medica l Group 2021-05-27 2021-05-27 Patient Tam, 1.2.840.1 [id number] Methodi 00:00:00 00:00:00 Outreach Maria M 07515.1.[address] 3.430.2.7 Hospit a .3.483639 l .8 2021-05-27 2021-05-27 Travel 1.2.840.1 1.2.646.356 0178 [id number] Methodi 00:00:00 00:00:[address] 3.430.2.7 0.2.7.3.698 Ho spita .3.705797 084.8 l .8 2021-05-27 2021-05-27 Orders Boles, 1.2.840.1 [id number] 2099 [id number] Methodi 00:00:00 00:00:00 Only Anila 16913.1.[address] 3.430.2.7 Hospit a .3.190896 l .8 2021-05-27 2021-05-27 Patient Tam, 1.2.840.1 [id number] Methodi 00:00:00 00:00:00 Outreach Maria M 38787.1.[address] 3.430.2.7 Hospit a .3.842427 l .8 2021-05-27 2021-05-27 Travel 1.2.840.1 1.2.275.700 5324 [id number] Methodi 00:00:00 00:00:[address] 3.430.2.7 0.2.7.3.698 Ho spita .3.510011 084.8 l .8 2021-05-27 2021-05-27 Orders Boles, 1.2.840.1 [id number] 2099 [id number] Methodi 00:00:00 00:00:00 Only Anila 48954.1.[address] 3.430.2.7 Hospit a .3.950874 l .8 2021-05-26 2021-05-26 Outpatient Adams_R DMG DMG [id number] 021 [facility] 03:30:00 03:30:00 1206 Medica l Group 2021-05-26 2021-05-26 Telephone Anthony, 1.2.840.1 [id number] 2099 [id number] Methodi 00:00:00 00:00:[address] 3.430.2.7 Hospit a .3.412764 l .8 2021-05-26 2021-05-26 Telephone Anthony, 1.2.840.1 [id number] 2099 [id number] Methodi 00:00:00 00:00:[address] 3.430.2.7 Hospit a .3.003718 l .8 2021-05-19 2021-05-25 [facility] Juwan You 1.2.840.1 [id number] 2099 [id number] Methodi 06:00:00 15:59:00 Encounter Kye Barber 56248.1.[address] Awe, Marilu Arvin 3.430.2.7 Hospita .3.598690 l .8 2021-05-19 2021-05-25 [facility] Juwan You 1.2.840.1 [id number] 2099 [id number] Methodi 06:00:00 15:59:00 Encounter Kye Barber 55375.1.[address] Awe, Marilu Arvin 3.430.2.7 Hospita .3.979997 l .8 2021-05-21 2021-05-21 Outpatient DMG DMG [id number] [facility] 03:30:00 03:30:00 1201 Medica l Group 2021-05-19 2021-05-19 Anesthesia Adam, 1.2.840.1 [id number] Methodi 18:45:00 20:31:00 Event Sukhjinder 22896.1.[address] [place] 3.430.2.7 Hospit a .3.877258 l .8 2021-05-19 2021-05-19 Anesthesia Adam, 1.2.840.1 [id number] Methodi 18:45:00 20:31:00 Event Sukhjinder 19442.1.[address] [place] 3.430.2.7 Hospit a .3.389385 l .8 2021-05-19 2021-05-19 Surgery Juwan You 1.2.840.1 [id number] Methodi 18:50:00 19:55:[address] 3.430.2.7 Hospit a .3.520346 l .8 2021-05-19 2021-05-19 Surgery Pati Juwan 1.2.840.1 [id number] 01983 [id number] Methodi 18:50:00 19:55:[address] 3.430.2.7 Hospit a .3.960191 l .8 2021-05-19 2021-05-19 Anesthesia Sukhjinder Medina 1.2.840.1 [id number] Methodi 12:00:00 15:14:00 Event Hanane Ledezma 28845.1.[address] 3.430.2.7 Hospit a .3.743475 l .8 2021-05-19 2021-05-19 Anesthesia AdamSukhjinder bridges 1.2.840.1 [id number] Methodi 12:00:00 15:14:00 Event Hanane Ledezma 50812.1.[address] 3.430.2.7 Hospit a .3.326732 l .8 2021-05-19 2021-05-19 Surgery Juwan You 1.2.840.1 [id number] Methodi 12:05:00 14:45:[address] 3.430.2.7 Hospit a .3.418410 l .8 2021-05-19 2021-05-19 Surgery Juwan You 1.2.840.1 [id number] Methodi 12:05:00 14:45:[address] 3.430.2.7 Hospit a .3.299158 l .8 2021-05-19 2021-05-19 Travel 1.2.840.1 1.2.381.759 3101 [id number] Methodi 00:00:00 00:00:[address] 3.430.2.7 0.2.7.3.698 Ho spita .3.049728 084.8 l .8 2021-05-19 2021-05-19 Travel 1.2.840.1 1.2.570.517 8625 [id number] Methodi 00:00:00 00:00:[address] 3.430.2.7 0.2.7.3.698 Ho spita .3.990863 084.8 l .8 2021-05-14 2021-05-14 Telephone Corin, 1.2.840.1 [id number] 21 [id number] Methodi 00:00:00 00:00:[address] 3.430.2.7 Hospit a .3.240475 l .8 2021-05-14 2021-05-14 Prep for Anthony, 1.2.840.1 [id number] Methodi 00:00:00 00:00:00 Surgery [place] [address]708.1.[address] 3.430.2.7 Hospit a .3.894563 l .8 2021-05-14 2021-05-14 Telephone Suhagajovita, 1.2.840.1 [id number] 21 [id number] Methodi 00:00:00 00:00:[address] 3.430.2.7 Hospit a .3.224609 l .8 2021-05-14 2021-05-14 Prep for Anthony, 1.2.840.1 [id number] Methodi 00:00:00 00:00:00 Surgery [place] [address]25.1.[address] 3.430.2.7 Hospit a .3.261801 l .8 2021-05-13 2021-05-13 Orders Doctor JOANNA 1.2.840.114 [id number] [facility] 00:00:00 00:00:00 Only Unassigned, MAGDALENO 350.1.13.10 ity of [place] [facility] 4.2.7.2.686 Baljinder as [id number] [place] [address] Branch 2021-05-12 2021-05-12 Office Juwan You 1.2.840.1 [id number] Methodi 09:02:46 09:32:[address] 3.430.2.7 Hospit a .3.949276 l .8 2021-05-12 2021-05-12 Office Juwan You 1.2.840.1 [id number] Methodi 09:00:00 09:32:[address] 3.430.2.7 Hospit a .3.227228 l .8 2021-05-12 2021-05-12 Telephone Anthony, 1.2.840.1 [id number] Methodi 00:00:00 00:00:[address] 3.430.2.7 Hospit a .3.839954 l .8 2021-05-12 2021-05-12 Travel 1.2.840.1 1.2.461.930 9052 312916 Methodi 00:00:00 00:00:[address] 3.430.2.7 0.2.7.3.698 Ho spita .3.731189 084.8 l .8 2021-05-12 2021-05-12 Outpatient JUWAN YOU [facility] [id number] [place] [address] 00:00:00 00:00:[address] 2021-05-12 2021-05-12 Telephone Anthony, 1.2.840.1 [id number] Methodi 00:00:00 00:00:[address] 3.430.2.7 Hospit a .3.539534 l .8 2021-05-12 2021-05-12 Travel 1.2.840.1 1.2.653.132 2138 665435 Methodi 00:00:00 00:00:[address] 3.430.2.7 0.2.7.3.698 Ho spita .3.503405 084.8 l .8 2021-05-08 2021-05-08 Orders Anthony, 1.2.840.1 [id number] 924495 1573 Methodi 00:00:00 00:00:00 Only Forrest 44250.1.[address] 3.430.2.7 Hospit a .3.172527 l .8 2021-05-08 2021-05-08 Telephone Ramana, 1.2.840.1 [id number] Methodi 00:00:00 00:00:[address] 3.430.2.7 Hospit a .3.759540 l .8 2021-05-08 2021-05-08 Orders Anthony, 1.2.840.1 [id number] 201716 8963 Methodi 00:00:00 00:00:00 Only Forrest 51610.1.[address] 3.430.2.7 Hospit a .3.246670 l .8 2021-05-08 2021-05-08 Telephone Boles, 1.2.840.1 [id number] Methodi 00:00:00 00:00:[address] 3.430.2.7 Hospit a .3.481998 l .8 2021-05-05 2021-05-05 Office Juwan You 1.2.840.1 [id number] 60 Methodi 14:18:48 15:41:58 Visit [address].1[address] 3.430.2.7 Hospit a .3.994512 l .8 2021-05-05 2021-05-05 Office Juwan You 1.2.840.1 [id number] Methodi 14:00:00 15:41:[address] 3.430.2.7 Hospit a .3.012842 l .8 2021-05-05 2021-05-05 Travel 1.2.840.1 1.2.403.059 8879 [id number] Methodi 00:00:00 00:00:[address] 3.430.2.7 0.2.7.3.698 Ho spita .3.892667 084.8 l .8 2021-05-05 2021-05-05 Travel 1.2.840.1 1.2.975.190 3297 [id number] Methodi 00:00:00 00:00:[address] 3.430.2.7 0.2.7.3.698 Ho spita .3.126261 084.8 l .8 2021-05-01 2021-05-01 Telephone Diaz, 1.2.840.1 [id number] [id number] Methodi 00:00:00 00:00:[address] [facility] 3.430.2.7 Hosp jo-ann .3.211475 l .8 2021-05-01 2021-05-01 Telephone Diaz, 1.2.840.1 [id number] [id number] Methodi 00:00:00 00:00:[address] [facility]-i 3.430.2.7 Hosp jo-ann .3.535548 l .8 2021-03-21 2021-03-21 Outpatient DM DREW [id number] 021 Devoted 08:01:00 08:01:00 1001 [facility] 2021-01-21 2021-01-29 [facility] [id number] Memoria 15:50:00 20:14:[address] 2021-01-21 2021-01-29 Outpatient [facility] [id number] 10:50:00 15:14:00 Monisha 12 2021-01-21 2021-01-29 Inpatient U AYDEE [facility] CAR 7512 [facility] 10:50:00 15:14:00 MONISHA 2021-01-24 2021-01-24 Outpatient DM DREW 81125-6 021 [facility] 08:00:00 08:00:00 0806 Medica l [facility] 2021-01-21 2021-01-21 [facility] 98727 [id number] 10:50:00 10:50:00 Monisha 12 2021-01-03 2021-01-03 Office DOMINIQUE Diane 1.2.840.114 [id number] [place] 07:44:43 09:30:54 Visit Alexandr ALTMAN 350.1.13.58 H ealth MEDICAL 9.2.7.2.686 [facility] [id number] 1 2021-01-03 2021-01-03 Office DOMINIQUE Diane 1.2.840.114 [id number] 07:44:43 09:30:54 Visit Alexandr ALTMAN 350.1.13.58 MEDICAL 9.2.7.2.686 [facility] [id number] 1 2020-12-24 2020-12-25 Outpatient nullFlavo Digestive 003 [id number] Memoria 15:32:00 04:59:00 r Disease 11 l Center Vin 2020-12-24 2020-12-24 Outpatient Wright, [facility] [id number] 10:32:00 23:59:00 Marvin Madden 2020-12-24 2020-12-24 Outpatient WRIGHT, [facility] 7511 [facility] 10:32:00 23:59:00 AMES 2020-10-27 2020-10-27 Keyona Kimble [facility] 1.2.840.114 [id number] 00:00:00 00:00:00 (Out) Oz Lehman 350.1.13.10 [place] 4.2.7.2.686 Professimtiaz [id number] [facility] 059 [facility] 2020-10-24 2020-10-24 Orders Doctor JOANNA 1.2.840.114 [id number] 00:00:00 00:00:00 Only Unassigned, MAGDALENO 350.1.13.10 [place] [facility] 4.2.7.2.686 [id number] 009 2020-09-24 2020-09-24 Refill Carlos [facility] 1.2.840.114 [id number] 00:00:00 00:00:00 Jose Luis Lehman 350.1.13.10 [place] 4.2.7.2.686 Professio [id number] nal 220 [facility] 2020-09-09 2020-09-09 [facility] 1.2.840.114 [id number] 00:00:00 00:00:00 Outreach Earl PRIMARY 350.1.13.10 Manuel CARE 4.2.7.2.686 P[facility]ION [id number] 388 2020-07-23 2020-07-23 Office Black [facility] 1.2.395.266 4912 5976 13:31:20 14:37:36 Visit Deja PRIMARY 350.1.13.10 A CARE 4.2.7.2.686 PAVILLION [id number] 198 2020-06-27 2020-06-27 [facility] 1.2.840.114 [id number] Univers 10:05:43 11:00:00 Visit Oz LEHMAN 350.1.13.10 [facility] 4.2.7.2.686 Amisha PARISHIO [id number] Az dical NAL 059 [facility] 2020-06-27 2020-06-27 Outpatient R LAMIN [facility] [id number] Univers 09:30:00 11:00:00 OZ low [facility] 2020-01-25 2020-01-31 Inpatient 1 Rei Waldron [facility] GPY [id number] 21:31:00 18:15:00 Rei Waldron [facility] 2018-05-24 2018-05-24 Outpatient SARAHY DORADO [facility] [id number] [facility] 00:00:00 00:00:00 BHAMIDIPASUSAN 2016-07-24 2016-07-30 Inpatient [facility] [id number] Memoria 02:04:00 16:20:00 sj Banuelos [address] [place] [address] 2016-07-23 2016-07-30 Outpatient Yaquelin [facility] [id number] 20:04:00 10:20:00 Luna Segundo 2016-06-10 2016-06-15 Inpatient [facility] 36062 [id number] Memoria 16:02:00 18:23:00 sj Banuelos [address] [place] [address] 2016-06-10 2016-06-15 Outpatient Franck, [facility] [id number] 10:02:00 12:23:00 Joe Yan 2014-06-26 2014-06-26 [facility] [id number] Memoria 05:25:00 15:14:00 Emergency r Vin 08 [facility] 2014-06-25 2014-06-26 Outpatient Ostejagdishayer, 2.16.840. 2.16.840. 1. [id number] 23:25:00 09:14:00 Atul 1.597906. 462322.3.61 08 Cem 3.615.0.1 5.0.642 90 2289-10-25 2013-04-15 [facility] [id number] Memoria 21:04:00 01:45:00 r Mila minor Vin 2013-04-14 2013-04-15 Outpatient 2.16.840. 2.16.840.1. 4 [id number] Memoria 21:04:00 01:45:00 1.536719. 953844.3.61 07 l 3.615.0.1 5.0.101 Jake n [facility] 2013-04-14 2013-04-15 Outpatient 2.16.840. 2.16.840.1. 4 [id number] Memoria 21:04:00 01:45:00 1.777539. 569009.3.61 07 l 3.615.0.1 5.0.101 Jake n [facility] 2013-04-14 2013-04-15 Outpatient 2.16.840. 2.16.840.1. 4 [id number] Memoria 21:04:00 01:45:00 1.202436. 493817.3.61 07 l 3.615.0.1 5.0.101 Jake n [facility] 2013-04-14 2013-04-15 Outpatient 2.16.840. 2.16.840.1. 4 [id number] Memoria 21:04:00 01:45:00 1.694533. 373474.3.61 07 l 3.615.0.1 5.0.101 Jake n 01 [facility] 2013-04-14 2013-04-15 Outpatient 2.16.840. 2.16.840.1. 4 [id number] Memoria 21:04:00 01:45:00 1.942312. 550401.3.61 07 l 3.615.0.1 5.0.101 Jake n 01 [facility] 2012-03-14 2012-03-14 Emergency nullFlavo [id number] Memoria 16:32:00 22:39:00 r [facility] 04 [facility] 2011-11-28 2011-11-30 OU nullFlavo [facility] [id number] Memoria 12:16:00 20:40:00 [facility] 03 [facility] 2011-09-18 2011-09-18 Emergency nullFlavo [facility] [id number] Memoria 08:23:00 13:34:00 [facility] 02 [facility] 2011-09-01 2011-09-09 Inpatient nullFlavo [facility] [id number] Memoria 01:40:00 15:00:00 [facility] 01 [facility] 2011-08-19 2011-08-23 Inpatient nullFlavo [facility] [id number] Memoria 14:25:00 15:28:[address] Results Test Description Test Time Test Comments Results Result Comments Source AFB culture 2021-07-22 18:13:19 Test Item Value Reference Range Interpretation Comme nts AFB culture isolate No growth after 6 weeks of Specimen InformationSpecimen (test code = 543-9) incubation. Source: DrainageSpecimen Site: Thigh: infected wound right thigh [facility] ixsknrr0002-01-75 18:13:19 Test Item Value Reference Range Interpretation Comments AFB culture No growth Specimen isolate (test after 6 weeks InformationSp ecimen code = 543-9) of Source: Draina geSpecimen incubation. Site: Thigh: in fected wound right thi gh [facility] evvkckb7827-98-44 18:15:13 Test Item Value Reference Range Interpretation Comments Fungus culture No growth Specimen isolate (test after 4 weeks InformationSp ecimen code = 1441) of Source: TissueS pecimen incubation. Site: Thigh [facility] wxcohhn5823-16-19 18:15:13 Test Item Value Reference Range Interpretation Comments Fungus culture No growth Specimen isolate (test after 4 weeks InformationSp ecimen code = 1441) of Source: TissueS pecimen incubation. Site: [facility] rgmbzix7745-87-04 14:31:13 Test Item Value Reference Range Interpretation Comments Anaerobic No anaerobic Specimen culture isolate organisms InformationS pecimen (test code = isolated. Source: TissueS pecimen 552) Site: [facility] zdfajym7355-55-06 14:31:13 Test Item Value Reference Range Interpretation Comments Anaerobic No anaerobic Specimen culture isolate organisms InformationS pecimen (test code = isolated. Source: TissueS pecimen 552) Site: [facility]2021-12-31 16:51:58 Test Item Value Reference Range Interpretation Comments Gram stain No WBC's or Specimen isolate (test organisms seen. Information Specimen code = 1469) Source: TissueS [facility] bmyfpzf7503-67-18 16:51:58 Test Item Value Reference Range Interpretation Comments Aerobic culture No growth Specimen isolate (test after 3 days. InformationSp ecimen code = 498) Source: TissueS pecimen [facility] ogrno1037-20-10 16:51:58 Test Item Value Reference Range Interpretation Comments Fungus smear No fungi Specimen (test code = observed. InformationSpec imen Source: 1443) TissueSpecimen Site: [facility] whctq7033-30-38 16:51:58 Test Item Value Reference Range Interpretation Comments Gram stain No WBC's or Specimen isolate (test organisms seen. Information Specimen code = 1469) Source: TissueS pecimen [facility] grkekop3618-87-66 16:51:58 Test Item Value Reference Range Interpretation Comments Aerobic culture No growth Specimen isolate (test after 3 days. InformationSp ecimen code = 498) Source: TissueS pecimen [facility] uguua6040-34-64 16:51:58 Test Item Value Reference Range Interpretation Comments Fungus smear No fungi Specimen (test code = observed. InformationSpec imen Source: 1443) TissueSpecimen Site: [facility] yrrjcwd4777-02-87 17:00:57 Test Item Value Reference Range Interpretation Comments POC glucose (test code 79 mg/dL 65-99 Opera tor Name: Eboni = 16694-1) AmiDevice ID: [id number] [facility] kjyakfw2474-91-09 17:00:57 Test Item Value Reference Range Interpretation Comments POC glucose (test code 79 mg/dL 65-99 Opera tor Name: Eboni = 27146-5) AmiDevice ID: [id number] [facility] , mrzpj4762-40-59 20:46:00 Test Item Value Reference Range Interpretation Comments test urine, POC (test Negative code = 2934195) Internal QC (test code = 257) QC acceptable [facility] , ueuqo7336-54-96 20:46:00 Test Item Value Reference Range Interpretation Comments test urine, POC (test Negative code = 2359163) Internal QC (test code = 257) QC acceptable [place] [address] rioa9133-93-26 17:27:33 Test Item Value Reference Range Interpretation Comments Ventricular rate (test code = 253) Atrial rate (test code = 255) ND interval (test code = 266) QRSD interval [...] of 04-JUN-2021 18:19,-No significant change was found- [address]2021-12-27 17:27:33 Test Item Value Reference Range Interpretation Comments Ventricular rate (test code = 253) Atrial rate (test code = 255) ND interval (test code = 266) QRSD interval [...] of 04-JUN-2021 18:19,-No significant change was found- [facility] ghbsfk1398-04-11 11:06:00 Test Item Value Reference Range Interpretation Comments ABO grouping (test code = 883-9) B Rh type (test code = 03545-9) POS Antibody screen (gel) (test code = NEG 890-4) [facility] bdmkbj1785-23-96 11:06:00 Test Item Value Reference Range Interpretation Comments ABO grouping (test code = 883-9) B Rh type (test code = 22743-4) POS Antibody screen (gel) (test code = NEG 890-4) [facility] RNA [Presence] in Respiratory specimen by EMANUEL with probe rdkqxyvmm1805-08-78 19:37:44 Test Item Value Reference Range Interpretation Comments SARS-CoV-2 (COVID-19) RNA Not detected Not-Detected [Presence] in Respiratory specimen by EMANUEL with probe detection (test code = 85500-5) 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 InformationSp ecimen code = 52553-6) Source: Tiss ueSpecimen Site: Thigh: in fected right thigh wou nd [facility] virzemu2319-98-98 20:18:46 Test Item Value Reference Range Interpretation Comments Tissue culture No growth Specimen isolate (test after 3 days. InformationSp ecimen code = 58593-5) Source: Tiss ueSpecimen Site: Thigh: in fected right thigh wou nd [facility] fwimp3122-18-04 20:24:42 Test Item Value Reference Range Interpretation Comments AFB stain No acid fast Specimen (test code = bacilli (AFB) InformationSpe cimen 676-7) seen. Source: Drainag eSpecimen Site: Thigh: in fected wound right [facility] xrfjg2084-45-44 20:24:42 Test Item Value Reference Range Interpretation Comments AFB stain No acid fast Specimen (test code = bacilli (AFB) InformationSpe cimen 676-7) seen. Source: Drainag eSpecimen Site: Thigh: in fected wound right [facility] ephrpte0192-40-42 09:49:57 Test Item Value Reference Range Interpretation Comments Urine culture No growth Specimen isolate (test after 24 InformationSpe cimen code = 62209-8) hours Source: Urin eSpecimen Site: Clean cat [facility] lyccqvy8275-63-25 09:49:57 Test Item Value Reference Range Interpretation Comments Urine culture No growth Specimen isolate (test after 24 InformationSpe cimen code = 11105-3) hours Source: Urin eSpecimen Site: [facility] kmhmlqubgocz0912-51-92 12:52:00 Test Item Value Reference Range Interpretation Comments ABO grouping (test code = 883-9) B Rh type (test code = 15273-3) [facility] and fqkzakkqgpzg7616-66-38 12:52:00 Test Item Value Reference Range Interpretation Comments ABO grouping (test code = 883-9) B Rh type (test code = 55398-1) [facility] RNA [Presence] in Respiratory specimen by EMANUEL with probe chgxjnlwu8143-26-48 03:04:32 Test Item Value Reference Range Interpretation Comments SARS-CoV-2 (COVID-19) RNA Not detected Not-Detected [Presence] in Respiratory specimen by EMANUEL with probe detection (test code = 88364-9) 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 (test code = 95719-8) Whether the patient has symptoms related to condition of interest (test code = 39097-5) Patient was hospitalized because of this condition (test code = 01177-2) Whether the patient was admitted to intensive care unit (ICU) for condition of interest (test code = 47846-4) Whether patient resides in a congregate care setting (test code = 07074-5) Prepare RBC, 1 Ttwsk1163-01-06 22:22:00 Test Item Value Reference Range Interpretation Comments Product name (test code Red Blood Cells -1, = 25) Leukored Unit number (test code = [id number] 7166331) Product code (test code P6781Y29 = 3092) Dispense status (test Transfused code = 24) Blood expiration date (test code = 302) Blood type code (test code = 308) Blood type (test code = B POSITIVE 1314) Compatibility (test code Compatible = 6400) [facility], 1 Rlylh2400-15-66 22:22:00 Test Item Value Reference Range Interpretation Comments Product name (test code Red Blood Cells -1, = 25) Leukored Unit number (test code = [id number] 0466274) Product code (test code W0177X12 = 3092) Dispense status (test Transfused code = 24) Blood expiration date (test code = 302) Blood type code (test code = 308) Blood type (test code = B POSITIVE 1314) Compatibility (test code Compatible = 6400) [facility] hmxtjse2403-86-38 20:10:46 Test Item Value Reference Range Interpretation Comments Case number (test code = [id number]) Surgical pathology See link below for report (test code = PDF Lab Report 2255) Result status (test code This is Final Report = [id number]) for [id number] [facility] pathology gnvefea1164-00-38 20:10:46 Test Item Value Reference Range Interpretation Comments Case number (test code = [id number]) Surgical pathology See link below for report (test code = PDF Lab Report 2255) Result status (test code This is Final Report = [id number]) for [id number] [facility] platelet pheresis, 1 Tliei5303-05-03 15:35:00 Test Item Value Reference Range Interpretation Comments Product name (test code Bogdan Fraire LR, Path = 25) Red cont3 Unit number (test code = [id number] 3198915) Product code (test code U5611N26 = 3092) Dispense status (test Transfused code = 24) Blood expiration date (test code = 302) Blood type code (test code = 308) Blood type (test code = O POSITIVE 1314) Compatibility (test code Not required = 6400) [facility] platelet pheresis, 1 Wykgk2141-40-55 15:35:00 Test Item Value Reference Range Interpretation Comments Product name (test code Bogdan GARDINER, Path = 25) Red cont3 Unit number (test code = [id number] 7691842) Product code (test code B4257Z92 = 3092) Dispense status (test Transfused code = 24) Blood expiration date (test code = 302) Blood type code (test code = 308) Blood type (test code = O POSITIVE 1314) Compatibility (test code Not required = 6400) [facility] clotting rpmh2677-21-29 12:13:24 Test Item Value Reference Range Interpretation Comments Activated clotting time See_Comment H Oper ator Name: (test code = 5298) Bryn Shorevice ID: [id number] [Automated mess age] The system [employer] generated this result transmitted ref erence range: 96 - 152 sec. The reference r leo was not used to interpret this result as normal/abnor mal. Lab Interpretation (test Abnormal code = 62427-8) [facility] clot[facility] mkco7610-86-76 12:13:24 Test Item Value Reference Range Interpretation Comments Activated clotting time See_Comment H Oper ator Name: (test code = 5298) Bryn Denny eneaDevice ID: [id number] [Automated mess age] The system [employer] generated this result transmitted ref erence range: 96 - 152 sec. The reference r leo was not used to interpret this result as normal/abnor mal. Lab Interpretation (test Abnormal code = 24683-7) [facility] Texas[facility] tjdxe5409-86-49 14:37:48 Test Item Value Reference Range Interpretation Comments POC sodium (test code = 138 mmol/L 398-227 7754-0) POC potassium (test 5.5 mmol/L 3.5-5.0 H code = 6298-4) POC glucose (test code 295 mg/dL 65-99 H = 2339-0) POC creatinine (test 5.3 mg/dl 0.5-0.9 H Operato r Name: Pugne code = 39098-1) AileenDevice ID: [id number] POC hemoglobin (test 18.4 g/dL 12.0-16.0 H code = 718-7) POC hematocrit (test 54 % 37-47 H code = 4544-3) Lab Interpretation Abnormal (test code = 76832-9) [facility] adahl8682-92-14 14:37:48 Test Item Value Reference Range Interpretation Comments POC sodium (test code = 138 mmol/L 954-510 2058-0) POC potassium (test 5.5 mmol/L 3.5-5 H code = 6298-4) POC glucose (test code 295 mg/dL 65-99 H = 2339-0) POC creatinine (test 5.3 mg/dl 0.5-0.9 H Operato r Name: Pat code = 19570-2) AileenDevice ID: [id number] POC hemoglobin (test 18.4 g/dL 12-16 H code = 718-7) POC hematocrit (test 54 % 37-47 H code = 4544-3) Lab Interpretation Abnormal (test code = 94619-8) [facility] RNA [Presence] in Respiratory specimen by EMANUEL with probe xcudsdpov1328-20-56 07:53:49 Test Item Value Reference Range Interpretation Comments SARS-CoV-2 (COVID-19) RNA Not detected Not-Detected [Presence] in Respiratory specimen by EMANUEL with probe detection (test code = 44163-8) 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 (test code = 24386-7) Whether the patient has symptoms related to condition of interest (test code = 27308-1) Patient was hospitalized because of this condition (test code = 25397-7) Whether the patient was admitted to intensive care unit (ICU) for condition of interest (test code = 20281-3) Whether patient resides in a congregate care setting (test code = 57106-6) CHEM CLQVE8796-56-20 08:17:00 Test Item Value Reference Range Interpretation Comments Glucose Lvl (test code = Glucose Lvl) 94 70-99 [facility] YLOMA3301-63-39 08:17:00 Test Item Value Reference Range Interpretation Comments BUN (test code = BUN) 27 7-22 [place] 038761-08-11 08:17:00 Test Item Value Reference Range Interpretation Comments Creatinine Lvl (test code = Creatinine 4.95 0.50-1.40 Lvl) [place] 038761-08-11 08:17:00 Test Item Value Reference Range Interpretation Comments Sodium Lvl (test code = Sodium Lvl) 136 135-145 [place] 038761-08-11 08:17:00 Test Item Value Reference Range Interpretation Comments Potassium Lvl (test code = Potassium 3.9 3.5-5.1 Lvl) [place] 038761-08-11 08:17:00 Test Item Value Reference Range Interpretation Comments Chloride Lvl (test code = Chloride Lvl) 103 95-109 [place] 038761-08-11 08:17:00 Test Item Value Reference Range Interpretation Comments CO2 (test code = CO2) 30 24-32 [place] 038761-08-11 08:17:00 Test Item Value Reference Range Interpretation Comments AGAP (test code = AGAP) 6.9 10.0-20.0 [place] 038761-08-11 08:17:00 Test Item Value Reference Range Interpretation Comments Calcium Lvl (test code = Calcium Lvl) 8.5 8.5-10.5 [place] 038761-08-11 08:17:00 Test Item Value Reference Range Interpretation Comments eGFR (test code = eGFR) 10 [place] 038761-08-11 08:17:00 Test Item Value Reference Range Interpretation Comments Phosphorus (test code = Phosphorus) 3.0 2.5-4.5 [place] 038761-08-11 08:17:00 Test Item Value Reference Range Interpretation Comments Magnesium Lvl (test code = Magnesium 2.4 1.8-2.4 Lvl) [place] 407651-08-11 08:17:00 Test Item Value Reference Range Interpretation Comments WBC (test code = WBC) 2.3 3.7-10.4 [place] 407651-08-11 08:17:00 Test Item Value Reference Range Interpretation Comments RBC (test code = RBC) 2.65 4.20-5.40 [place] 407651-08-11 08:17:00 Test Item Value Reference Range Interpretation Comments Hgb (test code = Hgb) 7.9 12.0-16.0 [place] 407651-08-11 08:17:00 Test Item Value Reference Range Interpretation Comments Hct (test code = Hct) 24.0 36.0-48.0 [place] 407651-08-11 08:17:00 Test Item Value Reference Range Interpretation Comments MCV (test code = MCV) 90.6 80.0-98.[address] [facility] CenterGueqknjKHZCZMJICC0845-36-91 08:17:00 Test Item Value Reference Range Interpretation Comments MCH (test code = MCH) 29.7 pg 27.0-31.0 [place] 407651-08-11 08:17:00 Test Item Value Reference Range Interpretation Comments MCHC (test code = MCHC) 32.7 32.0-36.[address] [facility] CenterFqzjmibWAPYDHYRBE4618-78-96 08:17:00 Test Item Value Reference Range Interpretation Comments RDW (test code = RDW) 19.1 11.5-14.[address] [facility] CenterHvrfclnOGXKTQNBHH9431-47-79 08:17:00 Test Item Value Reference Range Interpretation Comments Platelet (test code = Platelet) 71 133-[address] [facility] CenterYyzuduwDMKKOUWYYV6452-45-17 08:17:00 Test Item Value Reference Range Interpretation Comments MPV (test code = MPV) 9.9 7.4-10.4 [place] 407651-08-11 08:17:00 Test Item Value Reference Range Interpretation Comments Segs (test code = Segs) 56.1 45.0-75.0 [place] 407651-08-11 08:17:00 Test Item Value Reference Range Interpretation Comments Lymphocytes (test code = Lymphocytes) 28.9 20.0-40.[address] [facility] CenterQqipqczDGZGFANFIH3116-99-05 08:17:00 Test Item Value Reference Range Interpretation Comments Monocytes (test code = Monocytes) 8.1 2.0-12.0 [place] 407651-08-11 08:17:00 Test Item Value Reference Range Interpretation Comments Eosinophils (test code = 5.9 See_Comment [A utomated message] The Eosinophils) system which ge nerated this result tra nsmitted reference range : <=4.0. The reference r leo was not used to int erpret this result as normal/abnormal . [facility] CenterWwnmybrJIEWWAGNLE8910-33-29 08:17:00 Test Item Value Reference Range Interpretation Comments Basophils (test code = 1.0 See_Comment [Aut omated message] The Basophils) system which ge nerated this result tra nsmitted reference range : <=1.0. The reference r leo was not used to int erpret this result as normal/abnormal . [place] 407651-08-11 08:17:00 Test Item Value Reference Range Interpretation Comments Neutrophils # (test code = Neutrophils 1.3 1.5-8.1 #) [facility] CenterKqjsbwlRXPCZPNDQN5588-53-06 08:17:00 Test Item Value Reference Range Interpretation Comments Lymphocytes # (test code = Lymphocytes 0.7 1.0-5.5 #) [facility] CenterDfdnymaKOPYEAOXQD2589-16-09 08:17:00 Test Item Value Reference Range Interpretation Comments Monocytes # (test code 0.2 See_Comment [Aut omated message] The = Monocytes #) system which generated this result tra nsmitted reference range : <=0.8. The reference r leo was not used to int erpret this result as normal/abnormal . [facility] CenterFglkgitGTXLXRSOOC6040-98-14 08:17:00 Test Item Value Reference Range Interpretation Comments Eosinophils # (test code 0.1 See_Comment [A utomated message] The = Eosinophils #) system whic h generated this result tra nsmitted reference range : <=0.5. The reference r leo was not used to int erpret this result as normal/abnormal . [facility]2021-08-10 09:30:00 Test Item Value Reference Range Interpretation Comments Glucose Lvl (test code = Glucose Lvl) 61 70-99 [facility] XHWFM2450-78-62 09:30:00 Test Item Value Reference Range Interpretation Comments BUN (test code = BUN) 13 7-22 [facility]2021-08-10 09:30:00 Test Item Value Reference Range Interpretation Comments Creatinine Lvl (test code = Creatinine 3.71 0.50-1.40 Lvl) [facility]2021-08-10 09:30:00 Test Item Value Reference Range Interpretation Comments Sodium Lvl (test code = Sodium Lvl) 136 135-145 [facility] [place] 460451-08-10 09:30:00 Test Item Value Reference Range Interpretation Comments Potassium Lvl (test code = Potassium 4.3 3.5-5.1 Lvl) [place] [address]220-08-10 09:30:00 Test Item Value Reference Range Interpretation Comments Chloride Lvl (test code = Chloride Lvl) 103 95-109 [place] 038761-08-10 09:30:00 Test Item Value Reference Range Interpretation Comments CO2 (test code = CO2) 27 24-32 [place] 038761-08-10 09:30:00 Test Item Value Reference Range Interpretation Comments Calcium Lvl (test code = Calcium Lvl) 7.9 8.5-10.5 [place] 28220-08-10 09:30:00 Test Item Value Reference Range Interpretation Comments AGAP (test code = AGAP) 10.3 10.0-20.0 [place] 038761-08-10 09:30:00 Test Item Value Reference Range Interpretation Comments eGFR (test code = eGFR) 15 [place] 038761-08-10 09:30:00 Test Item Value Reference Range Interpretation Comments Magnesium Lvl (test code = Magnesium 2.3 1.8-2.4 Lvl) [place] 038761-08-10 09:30:00 Test Item Value Reference Range Interpretation Comments Phosphorus (test code = Phosphorus) 3.1 2.5-4.5 [place] 407651-08-10 09:30:00 Test Item Value Reference Range Interpretation Comments Segs (test code = Segs) 61.5 45.0-75.0 [place] 407651-08-10 09:30:00 Test Item Value Reference Range Interpretation Comments Lymphocytes (test code = Lymphocytes) 24.6 20.0-40.0 [place] [address]-08-10 09:30:00 Test Item Value Reference Range Interpretation Comments Monocytes (test code = Monocytes) 7.4 2.0-12.0 [place] [address]-08-10 09:30:00 Test Item Value Reference Range Interpretation Comments Eosinophils (test code = 5.5 See_Comment [A utomated message] The Eosinophils) system which ge nerated this result tra nsmitted reference range : <=4.0. The reference r leo was not used to int erpret this result as normal/abnormal . [facility] CenterUixfconXJRITWZFWQ6022-26-72 09:30:00 Test Item Value Reference Range Interpretation Comments Basophils (test code = 1.0 See_Comment [Aut omated message] The Basophils) system which ge nerated this result tra nsmitted reference range : <=1.0. The reference r leo was not used to int erpret this result as normal/abnormal . [facility] CenterPqvolxqPNIJXREPBU2150-91-90 09:30:00 Test Item Value Reference Range Interpretation Comments Neutrophils # (test code = Neutrophils 1.6 1.5-8.1 #) [facility] CenterUqetrmgLNVGUVDDEY5375-23-56 09:30:00 Test Item Value Reference Range Interpretation Comments Lymphocytes # (test code = Lymphocytes 0.6 1.0-5.5 #) [facility] CenterDsgyejrOQPKUTGHPM3543-29-80 09:30:00 Test Item Value Reference Range Interpretation Comments Monocytes # (test code 0.2 See_Comment [Aut omated message] The = Monocytes #) system which generated this result tra nsmitted reference range : <=0.8. The reference r leo was not used to int erpret this result as normal/abnormal . [facility] CenterZulphcwTOJXLLBQJU4861-52-30 09:30:00 Test Item Value Reference Range Interpretation Comments Eosinophils # (test code 0.1 See_Comment [A utomated message] The = Eosinophils #) system whic h generated this result tra nsmitted reference range : <=0.5. The reference r leo was not used to int erpret this result as normal/abnormal . [facility] CenterNcsarmqHYHDCUGASN0475-13-62 09:30:00 Test Item Value Reference Range Interpretation [...] studies, if clinically indicated, are recommended. CPT: 98342 [place] 407651-08-10 09:30:00 Test Item Value Reference Range Interpretation Comments WBC (test code = WBC) 2.5 3.7-10.[address] [facility] CenterYjdadtxDOAZYRLMPU3492-29-42 09:30:00 Test Item Value Reference Range Interpretation Comments RBC (test code = RBC) 2.68 4.20-5.[address] [facility] CenterIbjugrgUWYTQLIYLQ1153-97-92 09:30:00 Test Item Value Reference Range Interpretation Comments Hgb (test code = Hgb) 8.2 12.0-16.[address] [facility] CenterZlkowimHQHINRNQWU1996-31-27 09:30:00 Test Item Value Reference Range Interpretation Comments Hct (test code = Hct) 24.3 36.0-48.[address] [facility] CenterBtavslkBOKMEMSJGC9278-96-95 09:30:00 Test Item Value Reference Range Interpretation Comments MCV (test code = MCV) 90.9 80.0-98.[address] [facility] CenterZdpsbdaZSHZXZJJCK2453-77-53 09:30:00 Test Item Value Reference Range Interpretation Comments MCH (test code = MCH) 30.5 pg 27.0-31.[address] [facility] CenterYsfiguzQGKMOKLRRJ0896-72-35 09:30:00 Test Item Value Reference Range Interpretation Comments MCHC (test code = MCHC) 33.6 32.0-36.[address] [facility] CenterVlczndrLGZWGXLGHK1373-93-36 09:30:00 Test Item Value Reference Range Interpretation Comments RDW (test code = RDW) 19.4 11.5-14.[address] [facility] CenterOgmupvmDRBXAHMTXA6441-83-85 09:30:00 Test Item Value Reference Range Interpretation Comments Platelet (test code = Platelet) 70 133-[address] [facility] CenterYxcdvjiTIOROJPYEL7281-90-95 09:30:00 Test Item Value Reference Range Interpretation Comments MPV (test code = MPV) 10.7 7.4-10.4 [facility]2021-08-09 05:10:00 Test Item Value Reference Range Interpretation Comments Glucose Lvl (test code = Glucose Lvl) 69 70-99 [facility]2021-08-09 05:10:00 Test Item Value Reference Range Interpretation Comments BUN (test code = BUN) 29 7-22 [place] 038761-08-09 05:10:00 Test Item Value Reference Range Interpretation Comments Creatinine Lvl (test code = Creatinine 5.14 0.50-1.40 Lvl) [place] 038761-08-09 05:10:00 Test Item Value Reference Range Interpretation Comments Sodium Lvl (test code = Sodium Lvl) 134 135-145 [place] 038761-08-09 05:10:00 Test Item Value Reference Range Interpretation Comments Potassium Lvl (test code = Potassium 5.1 3.5-5.1 Lvl) [place] 038761-08-09 05:10:00 Test Item Value Reference Range Interpretation Comments Chloride Lvl (test code = Chloride Lvl) 98 95-109 [place] 038761-08-09 05:10:00 Test Item Value Reference Range Interpretation Comments CO2 (test code = CO2) 29 24-32 [place] 038761-08-09 05:10:00 Test Item Value Reference Range Interpretation Comments Calcium Lvl (test code = Calcium Lvl) 7.6 8.5-10.5 [place] 038761-08-09 05:10:00 Test Item Value Reference Range Interpretation Comments AGAP (test code = AGAP) 12.1 10.0-20.0 [place] 038761-08-09 05:10:00 Test Item Value Reference Range Interpretation Comments eGFR (test code = eGFR) 10 [place] 038761-08-09 05:10:00 Test Item Value Reference Range Interpretation Comments Magnesium Lvl (test code = Magnesium 2.3 1.8-2.4 Lvl) [place] 038761-08-09 05:10:00 Test Item Value Reference Range Interpretation Comments Phosphorus (test code = Phosphorus) 5.0 2.5-4.5 [place] 407651-08-09 05:10:00 Test Item Value Reference Range Interpretation Comments WBC (test code = WBC) 2.7 3.7-10.4 [place] 407651-08-09 05:10:00 Test Item Value Reference Range Interpretation Comments RBC (test code = RBC) 2.80 4.20-5.40 [place] 407651-08-09 05:10:00 Test Item Value Reference Range Interpretation Comments Hgb (test code = Hgb) 8.5 12.0-16.0 [place] 407651-08-09 05:10:00 Test Item Value Reference Range Interpretation Comments Hct (test code = Hct) 25.7 36.0-48.0 [place] 407651-08-09 05:10:00 Test Item Value Reference Range Interpretation Comments MCV (test code = MCV) 91.7 80.0-98.0 [place] 407651-08-09 05:10:00 Test Item Value Reference Range Interpretation Comments MCH (test code = MCH) 30.4 pg 27.0-31.0 [place] 407651-08-09 05:10:00 Test Item Value Reference Range Interpretation Comments MCHC (test code = MCHC) 33.1 32.0-36.[address] [facility] CenterTurvscfYOUVKPRJEX7973-74-44 05:10:00 Test Item Value Reference Range Interpretation Comments RDW (test code = RDW) 19.2 11.5-14.5 [place] 407651-08-09 05:10:00 Test Item Value Reference Range Interpretation Comments Platelet (test code = Platelet) 72 133-[address] [facility] CenterBacfgsmTEKVEXNURV0456-82-87 05:10:00 Test Item Value Reference Range Interpretation Comments MPV (test code = MPV) 9.9 7.4-10.[address] [facility] CenterPdaexatCGPSXKFIVF0961-20-57 05:10:00 Test Item Value Reference Range Interpretation Comments Segs (test code = Segs) 72.6 45.0-75.[address] [facility] CenterMjyhwlwFKRRHNATTQ9763-93-70 05:10:00 Test Item Value Reference Range Interpretation Comments Lymphocytes (test code = Lymphocytes) 15.9 20.0-40.0 [place] 407651-08-09 05:10:00 Test Item Value Reference Range Interpretation Comments Monocytes (test code = Monocytes) 7.3 2.0-12.0 [place] 407651-08-09 05:10:00 Test Item Value Reference Range Interpretation Comments Eosinophils (test code = 3.4 See_Comment [A utomated message] The Eosinophils) system which ge nerated this result tra nsmitted reference range : <=4.0. The reference r leo was not used to int erpret this result as normal/abnormal . [facility] CenterFfslsbsWGWRZQEYXK4238-78-69 05:10:00 Test Item Value Reference Range Interpretation Comments Basophils (test code = 0.8 See_Comment [Aut omated message] The Basophils) system which ge nerated this result tra nsmitted reference range : <=1.0. The reference r leo was not used to int erpret this result as normal/abnormal . [facility] CenterDsvtyukVILNGXJPFP1579-20-24 05:10:00 Test Item Value Reference Range Interpretation Comments Neutrophils # (test code = Neutrophils 1.9 1.5-8.1 #) [facility]MB[facility]RN[facility]72[facility]93 05:10:00 Test Item Value Reference Range Interpretation Comments Lymphocytes # (test code = Lymphocytes 0.4 1.0-5.5 #) [facility] CenterHgtcrczTCEEPWZDIA6743-38-53 05:10:00 Test Item Value Reference Range Interpretation Comments Monocytes # (test code 0.2 See_Comment [Aut omated message] The = Monocytes #) system which generated this result tra nsmitted reference range : <=0.8. The reference r leo was not used to int erpret this result as normal/abnormal . [facility] CenterTstqrhdUWBDSRHQFV6043-09-75 05:10:00 Test Item Value Reference Range Interpretation Comments Eosinophils # (test code 0.1 See_Comment [A utomated message] The = Eosinophils #) system whic h generated this result tra nsmitted reference range : <=0.5. The reference r leo was not used to int erpret this result as normal/abnormal . [facility]2021-08-09 05:10:00 Test Item Value Reference Range Interpretation Comments Ca Ion WB (test code = Ca Ion WB) 1.10 1.05-1.25 [facility]2021-08-09 05:10:00 Test Item Value Reference Range Interpretation Comments Ca Norm WB (test code = Ca Norm WB) 1.06 1.05-1.25 [facility] Temple[facility]LE[facility] KMPYVSXDVV9913-99-95 18:36:00 Test Item Value Reference Range Interpretation Comments C difficile DNA (test Negative (01/26/21 1:36 code = C difficile DNA) PM) [facility]2021-08-08 07:33:00 Test Item Value Reference Range Interpretation Comments Ca Ion WB (test code = Ca Ion WB) 1.12 1.05-1.25 [facility]2021-08-08 07:33:00 Test Item Value Reference Range Interpretation Comments Ca Norm WB (test code = Ca Norm WB) 1.07 1.05-1.25 [place] 038761-08-08 07:30:00 Test Item Value Reference Range Interpretation Comments Glucose Lvl (test code = Glucose Lvl) 65 70-99 [place] 038761-08-08 07:30:00 Test Item Value Reference Range Interpretation Comments BUN (test code = BUN) 21 7-22 [place] 038761-08-08 07:30:00 Test Item Value Reference Range Interpretation Comments Creatinine Lvl (test code = Creatinine 4.18 0.50-1.40 Lvl) [place] 038761-08-08 07:30:00 Test Item Value Reference Range Interpretation Comments Sodium Lvl (test code = Sodium Lvl) 136 135-145 [place] 038761-08-08 07:30:00 Test Item Value Reference Range Interpretation Comments Potassium Lvl (test code = Potassium 4.5 3.5-5.1 Lvl) [place] 038761-08-08 07:30:00 Test Item Value Reference Range Interpretation Comments Chloride Lvl (test code = Chloride Lvl) 99 95-109 [place] 038761-08-08 07:30:00 Test Item Value Reference Range Interpretation Comments CO2 (test code = CO2) 31 24-32 [place] 038761-08-08 07:30:00 Test Item Value Reference Range Interpretation Comments AGAP (test code = AGAP) 10.5 10.0-20.0 [place] 038761-08-08 07:30:00 Test Item Value Reference Range Interpretation Comments Calcium Lvl (test code = Calcium Lvl) 7.9 8.5-10.5 [place] 038761-08-08 07:30:00 Test Item Value Reference Range Interpretation Comments eGFR (test code = eGFR) 13 [place] 038761-08-08 07:30:00 Test Item Value Reference Range Interpretation Comments Magnesium Lvl (test code = Magnesium 2.2 1.8-2.4 Lvl) [place] 038761-08-08 07:30:00 Test Item Value Reference Range Interpretation Comments Phosphorus (test code = Phosphorus) 4.4 2.5-4.[address] [facility] CenterZtlosnhJNWGBRIJRZ2196-38-22 07:30:00 Test Item Value Reference Range Interpretation Comments WBC (test code = WBC) 2.3 3.7-10.[address] [facility] CenterJhoysrnFPAABXJJZZ5770-09-60 07:30:00 Test Item Value Reference Range Interpretation Comments RBC (test code = RBC) 2.88 4.20-5.[address] [facility] CenterUbjzrofRCASPPXBIS1795-82-23 07:30:00 Test Item Value Reference Range Interpretation Comments Hgb (test code = Hgb) 8.6 12.0-16.[address] [facility] CenterJmbfuouKNPWXEELII0383-68-35 07:30:00 Test Item Value Reference Range Interpretation Comments Hct (test code = Hct) 26.6 36.0-48.[address] [facility] CenterNizrlgbVGPAFIYFQR6641-94-99 07:30:00 Test Item Value Reference Range Interpretation Comments MCV (test code = MCV) 92.2 80.0-98.[address] [facility] CenterVtgmbkgLPRBXOIAON6858-83-20 07:30:00 Test Item Value Reference Range Interpretation Comments MCH (test code = MCH) 29.8 pg 27.0-31.[address] [facility] CenterQpnnzqrPEVZCRASGU4420-37-02 07:30:00 Test Item Value Reference Range Interpretation Comments MCHC (test code = MCHC) 32.4 32.0-36.[address] [facility] CenterYljyqnvJOLRUMZFNV0053-89-39 07:30:00 Test Item Value Reference Range Interpretation Comments RDW (test code = RDW) 19.7 11.5-14.[address] [facility] CenterRpdsdyqQSJISYYYAB0578-20-12 07:30:00 Test Item Value Reference Range Interpretation Comments Platelet (test code = Platelet) 83 133-[address] [facility] CenterPfaghtpJBDTIRUTGU7647-69-34 07:30:00 Test Item Value Reference Range Interpretation Comments MPV (test code = MPV) 10.2 7.4-10.[address] [facility] CenterPjcaotbNJSSRZMUEG9997-97-16 07:30:00 Test Item Value Reference Range Interpretation Comments Segs (test code = Segs) 64.0 45.0-75.[address] [facility] CenterBlmcstyMIUIFMCITQ1013-33-02 07:30:00 Test Item Value Reference Range Interpretation Comments Lymphocytes (test code = Lymphocytes) 24.1 20.0-40.[address] [facility] CenterCsmghwyHZKNLYFGFI9173-29-90 07:30:00 Test Item Value Reference Range Interpretation Comments Monocytes (test code = Monocytes) 7.0 2.0-12.0 [place] 407651-08-08 07:30:00 Test Item Value Reference Range Interpretation Comments Eosinophils (test code = 3.7 See_Comment [A utomated message] The Eosinophils) system which ge nerated this result tra nsmitted reference range : <=4.0. The reference r leo was not used to int erpret this result as normal/abnormal . [place] 407651-08-08 07:30:00 Test Item Value Reference Range Interpretation Comments Basophils (test code = 1.2 See_Comment [Aut omated message] The Basophils) system which ge nerated this result tra nsmitted reference range : <=1.0. The reference r leo was not used to int erpret this result as normal/abnormal . [place] 407651-08-08 07:30:00 Test Item Value Reference Range Interpretation Comments Neutrophils # (test code = Neutrophils 1.5 1.5-8.1 #) [facility] CenterZznmkdiMOLRKFMNUW5750-70-31 07:30:00 Test Item Value Reference Range Interpretation Comments Lymphocytes # (test code = Lymphocytes 0.6 1.0-5.5 #) [facility] CenterQvwgcbfUZDDJCBOQM9077-35-76 07:30:00 Test Item Value Reference Range Interpretation Comments Monocytes # (test code 0.2 See_Comment [Aut omated message] The = Monocytes #) system which generated this result tra nsmitted reference range : <=0.8. The reference r leo was not used to int erpret this result as normal/abnormal . [place] 407651-08-08 07:30:00 Test Item Value Reference Range Interpretation Comments Eosinophils # (test code 0.1 See_Comment [A utomated message] The = Eosinophils #) system whic h generated this result tra nsmitted reference range : <=0.5. The reference r leo was not used to int erpret this result as normal/abnormal . [place] 038761-08-07 09:32:00 Test Item Value Reference Range Interpretation Comments Glucose Lvl (test code = Glucose Lvl) 59 70-99 [place] 038761-08-07 09:32:00 Test Item Value Reference Range Interpretation Comments BUN (test code = BUN) 11 7-22 [place] 038761-08-07 09:32:00 Test Item Value Reference Range Interpretation Comments Creatinine Lvl (test code = Creatinine 2.75 0.50-1.40 Lvl) [place] 038761-08-07 09:32:00 Test Item Value Reference Range Interpretation Comments Sodium Lvl (test code = Sodium Lvl) 138 135-145 [place] 038761-08-07 09:32:00 Test Item Value Reference Range Interpretation Comments Potassium Lvl (test code = Potassium 4.1 3.5-5.1 Lvl) [place] 038761-08-07 09:32:00 Test Item Value Reference Range Interpretation Comments Chloride Lvl (test code = Chloride Lvl) 104 95-109 [place] 038761-08-07 09:32:00 Test Item Value Reference Range Interpretation Comments CO2 (test code = CO2) 29 24-32 [place] 038761-08-07 09:32:00 Test Item Value Reference Range Interpretation Comments Calcium Lvl (test code = Calcium Lvl) 8.3 8.5-10.5 [place] 038761-08-07 09:32:00 Test Item Value Reference Range Interpretation Comments AGAP (test code = AGAP) 9.1 10.0-20.0 [place] 038761-08-07 09:32:00 Test Item Value Reference Range Interpretation Comments eGFR (test code = eGFR) 21 [place] 038761-08-07 09:32:00 Test Item Value Reference Range Interpretation Comments Magnesium Lvl (test code = Magnesium 2.2 1.8-2.4 Lvl) [place] 038761-08-07 09:32:00 Test Item Value Reference Range Interpretation Comments Phosphorus (test code = Phosphorus) 3.9 2.5-4.5 [place] 407651-08-07 09:32:00 Test Item Value Reference Range Interpretation Comments WBC (test code = WBC) 2.3 3.7-10.4 [place] 407651-08-07 09:32:00 Test Item Value Reference Range Interpretation Comments RBC (test code = RBC) 2.78 4.20-5.40 [place] 50136-08-07 09:32:00 Test Item Value Reference Range Interpretation Comments Hgb (test code = Hgb) 8.4 12.0-16.0 [facility] TempleBcnnmzwMKBVCORPZE4240-11-10 09:32:00 Test Item Value Reference Range Interpretation Comments Hct (test code = Hct) 25.2 36.0-48.[address] [facility] CenterYpudsveXLTMUPDGLP6472-39-35 09:32:00 Test Item Value Reference Range Interpretation Comments MCV (test code = MCV) 90.5 80.0-98.[address] [facility] CenterWbvthxzUAMEWKRJBR3548-92-34 09:32:00 Test Item Value Reference Range Interpretation Comments MCH (test code = MCH) 30.4 pg 27.0-31.0 [facility] TempleVzhcbyvUHXDSFEJJR6321-98-15 09:32:00 Test Item Value Reference Range Interpretation Comments MCHC (test code = MCHC) 33.5 32.0-36.[address] [facility] CenterFixhnwkPOQLOCDBBL5712-32-62 09:32:00 Test Item Value Reference Range Interpretation Comments RDW (test code = RDW) 19.0 11.5-14.[address] [facility] CenterSyfuzytKIICYFQZAP4282-86-16 09:32:00 Test Item Value Reference Range Interpretation Comments Platelet (test code = Platelet) 87 133-450 [facility] TempleHwjzgeaZKUPVJMSUQ8727-80-59 09:32:00 Test Item Value Reference Range Interpretation Comments MPV (test code = MPV) 10.0 7.4-10.4 [facility] CGEUJKN1558-47-01 05:33:00 Test Item Value Reference Range Interpretation Comments ABO/Rh (test code = ABO/Rh) B POS [facility] [employer] RXROXVU9231-28-31 05:33:00 Test Item Value Reference Range Interpretation Comments Antibody Scrn (test Negative (01/24/21 12:33 code = Antibody Scrn) AM) [facility] CenterImxrkxsCGWOBAHUUG1411-54-42 05:33:00 Test Item Value Reference Range Interpretation Comments Segs (test code = Segs) 60.2 45.0-75.[address] [facility] CenterMyofzamRYIWGHMBUH4620-96-70 05:33:00 Test Item Value Reference Range Interpretation Comments Lymphocytes (test code = Lymphocytes) 28.6 20.0-40.0 [facility] TempleXfaeivjQABIMIXAZX7519-18-44 05:33:00 Test Item Value Reference Range Interpretation Comments Monocytes (test code = Monocytes) 5.8 2.0-12.0 [place] 407651-08-06 05:33:00 Test Item Value Reference Range Interpretation Comments Eosinophils (test code = 4.2 See_Comment [A utomated message] The Eosinophils) system which ge nerated this result tra nsmitted reference range : <=4.0. The reference r leo was not used to int erpret this result as normal/abnormal . [facility] CenterYkxrowmYEDRQPQNBM4475-00-48 05:33:00 Test Item Value Reference Range Interpretation Comments Basophils (test code = 1.2 See_Comment [Aut omated message] The Basophils) system which ge nerated this result tra nsmitted reference range : <=1.0. The reference r leo was not used to int erpret this result as normal/abnormal . [facility] CenterYzuqggsLCZUUZGBQW8628-22-39 05:33:00 Test Item Value Reference Range Interpretation Comments Neutrophils # (test code = Neutrophils 2.2 1.5-8.1 #) [facility] CenterSpwfdodICOFZSBINW7154-10-29 05:33:00 Test Item Value Reference Range Interpretation Comments Lymphocytes # (test code = Lymphocytes 1.1 1.0-5.5 #) [facility] CenterZukwwknFCTYLLGUMY4419-76-62 05:33:00 Test Item Value Reference Range Interpretation Comments Monocytes # (test code 0.2 See_Comment [Aut omated message] The = Monocytes #) system which generated this result tra nsmitted reference range : <=0.8. The reference r leo was not used to int erpret this result as normal/abnormal . [facility] CenterGiwkahpSXPUIOPYXY3456-95-93 05:33:00 Test Item Value Reference Range Interpretation Comments Eosinophils # (test code 0.2 See_Comment [A utomated message] The = Eosinophils #) system whic h generated this result tra nsmitted reference range : <=0.5. The reference r leo was not used to int erpret this result as normal/abnormal . [facility] CenterBmrphitGLAENXIRXL0878-20-18 05:53:00 Test Item Value Reference Range Interpretation Comments PT (test code = PT) 14.4 s 12.0-14.[address] CenterLkdahauFYLLKOSQBZ6026-97-55 05:53:00 Test Item Value Reference Range Interpretation Comments INR (test code = INR) 1.13 1 0.85-1.17 [place] 407651-08-05 05:53:00 Test Item Value Reference Range Interpretation Comments Fibrinogen Lvl (test code = Fibrinogen 319 230-510 Lvl) [place] 407651-08-05 05:53:00 Test Item Value Reference Range Interpretation Comments Thrombin Time (test code = Thrombin 15.9 s 15.0-21.2 Time) [place] 407651-08-05 05:53:00 Test Item Value Reference Range Interpretation Comments PTT (test code = PTT) 47.0 s 22.9-35.8 [place] 407651-08-05 05:53:00 Test Item Value Reference Range Interpretation Comments D-Dimer (test code = D-Dimer) 0.91 [place] 501[address]-08-05 05:53:00 Test Item Value Reference Range Interpretation Comments Basophils # (test code 0.1 See_Comment [Aut omated message] The = Basophils #) system which generated this result tra nsmitted reference range : <=0.2. The reference r leo was not used to int erpret this result as normal/abnormal . [facility] [id number] 05:53:00 Test Item Value Reference Range Interpretation Comments Ca Ion WB (test code = Ca Ion WB) 1.24 1.05-1.25 [facility] [id number] 05:53:00 Test Item Value Reference Range Interpretation Comments Ca Norm WB (test code = Ca Norm WB) 1.25 1.05-1.25 [facility] [id number] 10:09:00 Test Item Value Reference Range Interpretation Comments ALT (test code = ALT) 49 See_Comment [Auto mated message] The system which ge nerated this result transmit rohit reference range : <=65. The reference range was not used to interpr et this result as reji l/abnormal. [facility] [id number] 10:09:00 Test Item Value Reference Range Interpretation Comments Albumin Lvl (test code = Albumin Lvl) 2.8 3.5-5.0 [facility] [id number] 10:09:00 Test Item Value Reference Range Interpretation Comments Alk Phos (test code = Alk Phos) 41 39-136 [facility] [id number] 10:09:00 Test Item Value Reference Range Interpretation Comments Bili Direct (test code 0.2 See_Comment [Aut omated message] The = Bili Direct) system which generated this result tra nsmitted reference range : <=0.3. The reference r elo was not used to int erpret this result as reji l/abnormal. [facility] [id number] 10:09:00 Test Item Value Reference Range Interpretation Comments Bili Total (test code = Bili Total) 0.6 0.2-1.3 [facility] [id number] 10:09:00 Test Item Value Reference Range Interpretation Comments Bili Indirect (test 0.4 See_Comment [Automa rohit message] The code = Bili Indirect) system which generated this result tra nsmitted reference range : <=1.0. The reference r leo was not used to int erpret this result as normal/abnormal . [facility] [id number] 10:09:00 Test Item Value Reference Range Interpretation Comments Total Protein (test code = Total 5.6 6.4-8.4 Protein) [facility] [id number] 10:09:00 Test Item Value Reference Range Interpretation Comments AST (test code = AST) 33 See_Comment [Auto mated message] The system which ge nerated this result transmit rohit reference range : <=37. The reference range was not used to interpr et this result as reji l/abnormal. [facility] [employer] [id number] 10:09:00 Test Item Value Reference Range Interpretation Comments Globulin (test code = Globulin) 2.8 2.7-4.2 [facility] [id number] 10:09:00 Test Item Value Reference Range Interpretation Comments A/G Ratio (test code = A/G Ratio) 1.0 1 0.7-1.6 [facility] [id number] 10:09:00 Test Item Value Reference Range Interpretation Comments Amylase Lvl (test code = Amylase Lvl) 19 25-115 [facility] [id number] 10:09:00 Test Item Value Reference Range Interpretation Comments Lipase Lvl (test code = Lipase Lvl) no gt 73-[address] [address] CenterFdkcixaOYNLHOABXX6018-71-98 10:09:00 Test Item Value Reference Range Interpretation Comments PTT (test code = PTT) 41.4 s 22.9-35.[address] [facility] HospitalBjwtnhiVIJBVDXJQU0961-41-90 10:09:00 Test Item Value Reference Range Interpretation Comments PT (test code = PT) 15.4 s 12.0-14.[address] [address] CenterIdjvquiFOHVTFAZBC0971-88-28 10:09:00 Test Item Value Reference Range Interpretation Comments INR (test code = INR) 1.24 1 0.85-1.[address] [address] CenterThliborCHDWAVKLJG2789-70-55 10:09:00 Test Item Value Reference Range Interpretation Comments Fibrinogen Lvl (test code = Fibrinogen 312 230-510 Lvl) [facility] HospitalDlzrrnqDMKKMWTXHL7741-28-14 10:09:00 Test Item Value Reference Range Interpretation Comments Thrombin Time (test code = Thrombin 16.6 s 15.0-21.2 Time) [facility] CenterThspknpQLAZTVPJVQ0943-33-40 10:09:00 Test Item Value Reference Range Interpretation Comments D-Dimer (test code = D-Dimer) 4.[address] [facility] CenterSafpclqEZJWNYFIMJ0472-08-14 10:09:00 Test Item Value Reference Range Interpretation Comments Basophils # (test code 0.1 See_Comment [Aut omated message] The = Basophils #) system which generated this result tra nsmitted reference range : <=0.2. The reference r leo was not used to int erpret this result as normal/abnormal . [facility] [id number] 10:09:00 Test Item Value Reference Range Interpretation Comments Hgb A1C (test code = Hgb A1C) 5.6 [facility] [id number] 09:07:00 Test Item Value Reference Range Interpretation Comments Amylase Lvl (test code = Amylase Lvl) 4 25-115 [facility] TempleTcngjloHLZDCRQBNQ9264-26-33 09:07:00 Test Item Value Reference Range Interpretation Comments Thrombin Time (test code = Thrombin 18.0 s 15.0-21.2 Time) [facility] CenterUaccihiAEADCJDJPQ2767-71-17 09:07:00 Test Item Value Reference Range Interpretation Comments PT (test code = PT) 24.6 s 12.0-14.[address] [facility] CenterGjwsmiaMFZDEFCAPN4726-02-21 09:07:00 Test Item Value Reference Range Interpretation Comments INR (test code = INR) 2.31 1 0.85-1.17 [facility] HospitalRysrxrpPSWRTJVCXT6998-25-38 09:07:00 Test Item Value Reference Range Interpretation Comments PTT (test code = PTT) 57.5 s 22.9-35.8 [facility] TempleIzyezymHPUAHUULRG2554-26-12 09:07:00 Test Item Value Reference Range Interpretation Comments Fibrinogen Lvl (test code = Fibrinogen 125 230-510 Lvl) [facility] TempleQznacmdWEZXHDXWTP5526-28-86 09:07:00 Test Item Value Reference Range Interpretation Comments D-Dimer (test code = D-Dimer) 2.28 [facility] CJJMCSY3057-73-05 04:52:00 Test Item Value Reference Range Interpretation Comments RBC product (test code Product available = RBC product) (01/21/21 11:52 PM) [facility] [id number] 00:38:00 Test Item Value Reference Range Interpretation Comments Troponin-I (test code no gt See_Comment [Auto mated message] The = Troponin-I) system which g enerated this result transmit rohit reference range : <=0.40. The reference r leo was not used to interpr et this result as reji l/abnormal. [facility] [id number] 17:47:00 Test Item Value Reference Range Interpretation Comments BNP (test code = BNP) 2324 [facility] [id number] 17:47:00 Test Item Value Reference Range Interpretation Comments Troponin-I (test code 0.02 See_Comment [Auto mated message] The = Troponin-I) system which g enerated this result transmit rohit reference range : <=0.40. The reference r leo was not used to interpr et this result as reji l/abnormal. [facility] CrduwhdSMQLAVZNBR0388-58-87 17:47:00 Test Item Value Reference Range Interpretation Comments Hep Bs Ag (test code Negative *NA*(01/21/21 = Hep Bs Ag) 12:47 PM) [facility] [employer] [id number] 17:43:00 Test Item Value Reference Range Interpretation Comments B/C Ratio (test code = B/C Ratio) 5 1 6-25 [facility] [employer] [id number] 17:43:00 Test Item Value Reference Range Interpretation Comments ALT (test code = ALT) 66 See_Comment [Auto mated message] The system which ge nerated this result transmit rohit reference range : <=65. The reference range was not used to interpr et this result as reji l/abnormal. [employer]2021-08-03 17:43:00 Test Item Value Reference Range Interpretation Comments Albumin Lvl (test code = Albumin Lvl) 3.0 3.5-5.0 [employer]2021-08-03 17:43:00 Test Item Value Reference Range Interpretation Comments Alk Phos (test code = Alk Phos) 40 39-136 [facility] Naytev2021-08-03 17:43:00 Test Item Value Reference Range Interpretation Comments Bili Total (test code = Bili Total) 0.5 0.2-1.3 [facility] [employer] [id number] 17:43:00 Test Item Value Reference Range Interpretation Comments Total Protein (test code = Total 5.7 6.4-8.4 Protein) [employer]2021-08-03 17:43:00 Test Item Value Reference Range Interpretation Comments AST (test code = AST) 52 See_Comment [Auto mated message] The system which ge nerated this result transmit rohit reference range : <=37. The reference range was not used to interpr et this result as reji l/abnormal. [employer] [id number] 17:43:00 Test Item Value Reference Range Interpretation Comments Globulin (test code = Globulin) 2.7 2.7-4.2 [employer]2021-08-03 17:43:00 Test Item Value Reference Range Interpretation Comments A/G Ratio (test code = A/G Ratio) 1.1 1 0.7-1.6 [employer]2021-08-03 17:43:00 Test Item Value Reference Range Interpretation Comments Lactic Acid Lvl (test code = Lactic 1.1 0.5-2.2 Acid Lvl) [employer] KGNTRWT1432-05-29 16:20:00 Test Item Value Reference Range Interpretation Comments ABO/Rh (test code = ABO/Rh) B POS [facility] [employer] [id number] 16:20:00 Test Item Value Reference Range Interpretation Comments Antibody Scrn (test Negative (8/3/21 11:20 code = Antibody Scrn) AM) [facility] TempleOtltvlsTEPCWIOGLP3192-67-01 16:20:00 Test Item Value Reference Range Interpretation Comments Anisocyte (test code = 1+ *ABN*(01/21/21 Anisocyte) 11:20 AM) [facility] [id number] 15:35:00 Test Item Value Reference Range Interpretation Comments Lactase Lvl (test code = Lactase Lvl) 2.0 [facility] [id number] 15:35:00 Test Item Value Reference Range Interpretation Comments Sucrase Lvl (test code = Sucrase Lvl) 38.6 [facility] LAB [id number] 15:35:00 Test Item Value Reference Range Interpretation Comments Maltase Lvl (test code = Maltase Lvl) 177.2 [facility] [id number] 15:35:00 Test Item Value Reference Range Interpretation Comments Palatinase Lvl (test code = Palatinase 13.8 Lvl) [facility] HospitalCgkamzzOTXNVVXLVIDS8836-86-88 13:21:00 Test Item Value Reference Range Interpretation Comments Potassium WB (test code = Potassium WB) 5.1 3.5-5.1 [facility] TempleAzbdijrRUPAYXINNQOMC6161-41-65 13:21:00 Test Item Value Reference Range Interpretation Comments S Preg (test code = S Negative 8*NA*(01/21/21 Preg) 8:21 AM) [facility] TempleTursxdkANOAVFASTW7685-16-31 11:19:00 Test Item Value Reference Range Interpretation Comments Coronavirus (COVID-19) Not Detected (01/21/21 EMANUEL (test code = 6:19 AM) Coronavirus (COVID-19) EMANUEL) [facility] Pdgkjek4535-61-11 16:39:05 Test Item Value Reference Range Interpretation Comments Glucose POC (test 183 mg/dL 70-115 H If you con security rep your code = Glucose POC) patient critically ill, the Merlin-Accu Check Infrom II meter should not be used for Glucose determination. Draw a venous Glucose and send to the main Lab for analysis. Urine Reecflb0288-16-23 11:32:13 Test Item Value Reference Range Interpretation [...] Escherichia coli C Urine Added by GL_SJM_UA_CUL_INDPOC Jpvvgpp1311-18-84 07:52:10 Test Item Value Reference Range Interpretation Comments Glucose POC (test 160 mg/dL 70-115 H If you con security rep your code = Glucose POC) patient critically ill, the Merlin-Accu Check Infrom II meter should not be used for Glucose determination. Draw a venous Glucose and send to the main Lab for analysis. POC Mqexbga6671-97-14 19:32:05 Test Item Value Reference Range Interpretation Comments Glucose POC (test 184 mg/dL 70-115 H If you con security rep your code = Glucose POC) patient critically ill, the Merlin-Accu Check Infrom II meter should not be used for Glucose determination. Draw a venous Glucose and send to the main Lab for analysis. POC Cbyxzxw8964-77-35 17:16:35 Test Item Value Reference Range Interpretation Comments Glucose POC (test 281 mg/dL 70-115 H Notify RN or MDIf you code = Glucose POC) consider your patient critically ill, the Merlin-Accu Chec k Infrom II meter should not be used for Glucos e determination. Draw a venous Glucose and send to the main Lab for analysis. POC Mkpseyd2985-12-17 12:00:38 Test Item Value Reference Range Interpretation Comments Glucose POC (test 138 mg/dL 70-115 H Notify RN or MDIf you code = Glucose POC) consider your patient critically ill, the Merlin-Accu Chec k Infrom II meter should not be used for Glucos e determination. Draw a venous Glucose and send to the main Lab for analysis. POC Fpcclxv5611-23-81 07:41:32 Test Item Value Reference Range Interpretation Comments Glucose POC (test 206 mg/dL 70-115 H Notify RN or MDIf you code = Glucose POC) consider your patient critically ill, the Merlin-Accu Chec k Infrom II meter should not be used for Glucos e determination. Draw a venous Glucose and send to the main Lab for analysis. Urinalysis Otvslhyakzw1931-72-03 21:07:21 Test Item Value Reference Range Interpretation Comments UA WBC (test code = UA WBC) TNTC 0-5 A UA RBC (test code = UA RBC) 6-10 0-5 A UA Bacteria (test code = UA Bacteria) Profuse A UA Squam Epithelial (test code = UA 6-10 A Squam Epithelial) Urinalysis with Culture, if [id number] 20:35:14 Test Item Value Reference Range Interpretation [...] Micro Indicated Not Indicated A Ind?) POC [id number] 19:06:34 Test Item Value Reference Range Interpretation Comments Glucose POC (test 207 mg/dL 70-115 H If you con security rep your code = Glucose POC) patient critically ill, the Merlin-Accu Check Infrom II meter should not be used for Glucose determination. Draw a venous Glucose and send to the main Lab for analysis. POC [id number] 17:12:03 Test Item Value Reference Range Interpretation Comments Glucose POC (test 173 mg/dL 70-115 H Notify RN or MDIf you code = Glucose POC) consider your patient critically ill, the Merlin-Accu Chec k Infrom II meter should not be used for Glucos e determination. Draw a venous Glucose and send to the main Lab for analysis. POC [id number] 11:58:01 Test Item Value Reference Range Interpretation Comments Glucose POC (test 289 mg/dL 70-115 H Notify RN or MDIf you code = Glucose POC) consider your patient critically ill, the Merlin-Accu Chec k Infrom II meter should not be used for Glucos e determination. Draw a venous Glucose and send to the main Lab for analysis. POC [id number] 08:19:37 Test Item Value Reference Range Interpretation Comments Glucose POC (test 201 mg/dL 70-115 H Notify RN or MDIf you code = Glucose POC) consider your patient critically ill, the Merlin-Accu Chec k Infrom II meter should not be used for Glucos e determination. Draw a venous Glucose and send to the main Lab for analysis. POC [id number] 20:37:35 Test Item Value Reference Range Interpretation Comments Glucose POC (test 272 mg/dL 70-115 H If you con security rep your code = Glucose POC) patient critically ill, the Merlin-Accu Check Infrom II meter should not be used for Glucose determination. Draw a venous Glucose and send to the main Lab for analysis. POC [id number] 17:23:05 Test Item Value Reference Range Interpretation Comments Glucose POC (test 229 mg/dL 70-115 H If you con security rep your code = Glucose POC) patient critically ill, the Merlin-Accu Check Infrom II meter should not be used for Glucose determination. Draw a venous Glucose and send to the main Lab for analysis. POC [id number] 12:01:01 Test Item Value Reference Range Interpretation Comments Glucose POC (test 155 mg/dL 70-115 H If you con security rep your code = Glucose POC) patient critically ill, the Merlin-Accu Check Infrom II meter should not be used for Glucose determination. Draw a venous Glucose and send to the main Lab for analysis. POC [id number] 08:07:32 Test Item Value Reference Range Interpretation Comments Glucose POC (test 248 mg/dL 70-115 H If you con security rep your code = Glucose POC) patient critically ill, the Merlin-Accu Check Infrom II meter should not be used for Glucose determination. Draw a venous Glucose and send to the main Lab for analysis. IG [id number] 06:50:39 Test Item Value Reference Range Interpretation Comments IG (test code = IG) 0.7 % 0.0-5.0 IG Abs (test code = IG Abs) 0 x10 N Complete Blood Count with [id number] 06:50:38 Test Item Value Reference Range Interpretation [...] code = IPF) 0 % N Automated Wbkccbbdwcuy4573-08-55 06:50:38 Test Item Value Reference Range Interpretation Comments Neutro Auto (test code = Neutro 50.3 % 36.0-70.0 Auto) Lymph Auto (test code = Lymph Auto) 38.6 % 12.0-44.0 Waller Auto (test code = Waller Auto) 7.3 % 0.0-11.0 Eos, Auto (test code = Eos, Auto) 2.4 % 0.0-7.0 Basophil Auto (test code = Basophil 0.7 % 0.0-2.0 Auto) Neutro Absolute (test code = Neutro 3.0 x10 1.6-7.4 Absolute) Lymph Absolute (test code = Lymph 2.28 x10 .50-4.60 Absolute) Waller Absolute (test code = Waller .43 x10 .00-1.20 Absolute) Eos Absolute (test code = Eos 0.14 x10 0.00-0.74 Absolute) Baso Absolute (test code = Baso 0.04 x10 0.00-0.21 Absolute) Basic Metabolic [id number] 05:38:20 Test Item Value Reference Range Interpretation [...] = Lipemia) 0 mg/dL 8-11 Basic Metabolic [id number] 05:38:20 Test Item Value Reference Range Interpretation [...] = 0 mg/dL 8-11 Lipemia) Basic Metabolic Sddyl2522-00-05 05:38:20 Test Item Value Reference Range Interpretation [...] code = 0 mg/dL 8-11 Lipemia) POC [id number] 20:28:33 Test Item Value Reference Range Interpretation Comments Glucose POC (test 169 mg/dL 70-115 H If you con security rep your code = Glucose POC) patient critically ill, the Merlin-Accu Check Infrom II meter should not be used for Glucose determination. Draw a venous Glucose and send to the main Lab for analysis. POC [id number] 16:39:30 Test Item Value Reference Range Interpretation Comments Glucose POC (test 103 mg/dL 70-115 If you con security rep your code = Glucose POC) patient critically ill, the Merlin-Accu Check Infrom II meter should not be used for Glucose determination. Draw a venous Glucose and send to the main Lab for analysis. RPR [id number] 12:08:56 Test Item Value Reference Range Interpretation Comments RPR Qual (test code = RPR Qual) Non-Reactive Non-Reactive Reactive Control (test code = Reactive Reactive Control) Weak Reactive Control (test Weak Reactive code = Weak Reactive Control) Non-Reactive Control (test code Non-Reactive = Non-Reactive Control) Lot # (test code = Lot #) [id number] Expiration Dt (test code = 03-20-2021 N Expiration Dt) POC [id number] 11:52:31 Test Item Value Reference Range Interpretation Comments Glucose POC (test 250 mg/dL 70-115 H If you con security rep your code = Glucose POC) patient critically ill, the Merlin-Accu Check Infrom II meter should not be used for Glucose determination. Draw a venous Glucose and send to the main Lab for analysis. POC [id number] 07:55:29 Test Item Value Reference Range Interpretation Comments Glucose POC (test 205 mg/dL 70-115 H If you con security rep your code = Glucose POC) patient critically ill, the Merlin-Accu Check Infrom II meter should not be used for Glucose determination. Draw a venous Glucose and send to the main Lab for analysis. Lipid [id number] 05:46:04 Test Item Value Reference Range Interpretation [...] LDL/HDL Ratio=L DL Calc/HDL Chol Thyroid Stimulating [id number] 05:46:04 Test Item Value Reference Range Interpretation Comments TSH (test code = TSH) 3.274 mcIU/mL 0.550-4.780 Hemoglobin [id number] 05:41:08 Test Item Value Reference Range Interpretation Comments Hemoglobin A1c (test code 7.6 % 4.0-5.8 H Di abetic >=6.5 = Hemoglobin A1c) %Prediabet es 5.7-6.4 %Normal <5.7 % Hepatitis B Surface [id number] 21:19:36 Test Item Value Reference Range Interpretation Comments Hep Bs Ag (test code = Hep Bs Non-Reactive Non-Reactive Ag) Novel Coronavirus SARS-CoV-2, [id number] 11:16:16 Test Item Value Reference Range Interpretation Comments SARS-CoV-2 PCR NEGATIVE Negative Positive resu lts are (test code = indicative of a ctive SARS-CoV-2 PCR) infection wi th SARS-CoV-2; clinical correl ation with patient history and other diagnostic info rmation is necessary to de termine patient infecti on status.Presumpt mnotse positive result s -INTERPRET WITH CAUTION: Result may not reflect if mason ent is [...] Emergency Use Authorization." Novel Coronavirus (COVID-19), EMANUEL [id number] 11:11:24TNPTest not sent and performed at [facility].Rapid was perfomed in Microbiology.Wrong covid test was ord ered.Urine DOA [id number] 00:17:49 Test Item Value Reference Range Interpretation [...] positive result is desired, please order Opiate Confirma tion, Urine within 7 days. U PCP Scrn [...] Propoxyphene Confirmation wi thin 7 days. Alcohol [id number] 00:17:29 Test Item Value Reference Range Interpretation Comments Ethanol Level 9.0 mg/dL N The pharmacolo gical (test code = response to blo od alcohol Ethanol Level) levels may va ry from individual to i ndividual. The fatal omkar ntration has been report ed to be >400 mg/dl. Comprehensive Metabolic [id number] 00:17:28 Test Item Value Reference Range Interpretation [...] = Lipemia) 0 g/dL 1-2 Comprehensive Metabolic [id number] 00:17:28 Test Item Value Reference Range Interpretation [...] = 0 g/dL 1-2 Lipemia) Comprehensive Metabolic [id number] 00:17:28 Test Item Value Reference Range Interpretation [...] ag e have not been validated by [facility] MDRD study and should be [...] ag e have not been validated by [facility] MDRD study and should be [...] g/dL 1-2 Lipemia) Complete Blood Count with [id number] 23:26:28 Test Item Value Reference Range Interpretation [...] code = IPF) 0 % N Automated [id number] 23:26:28 Test Item Value Reference Range Interpretation Comments Neutro Auto (test code = Neutro 67.1 % 36.0-70.0 Auto) Lymph Auto (test code = Lymph Auto) 23.3 % 12.0-44.0 Waller Auto (test code = Waller Auto) 5.8 % 0.0-11.0 Eos, Auto (test code = Eos, Auto) 2.3 % 0.0-7.0 Basophil Auto (test code = Basophil 0.8 % 0.0-2.0 Auto) Neutro Absolute (test code = Neutro 6.0 x10 1.6-7.4 Absolute) Lymph Absolute (test code = Lymph 2.10 x10 .50-4.60 Absolute) Waller Absolute (test code = Waller .52 x10 .00-1.20 Absolute) Eos Absolute (test code = Eos 0.21 x10 0.00-0.74 Absolute) Baso Absolute (test code = Baso 0.07 x10 0.00-0.21 Absolute) IG [id number] 23:26:28 Test Item Value Reference Range Interpretation Comments IG (test code = IG) 0.7 % 0.0-5.0 IG Abs (test code = IG Abs) 0 x10 N HERPES VIRUS ANTIBODY, [id number] 21:46:00 Test Item Value Reference Range Interpretation Comments HERPES VIRUS IGM (BEAKER) Negative SE E ATTACHMENT (test code = 1808) BLOOD [id number] 06:00:00 Test Item Value Reference Range Interpretation Comments CULTURE (BEAKER) (test No growth in 5 days code = 1095) BLOOD [id number] 06:00:00 Test Item Value Reference Range Interpretation Comments CULTURE (BEAKER) (test No growth in 5 days code = 1095) POCT-GLUCOSE [id number] 12:11:00 Test Item Value Reference Range Interpretation Comments POC-GLUCOSE METER 154 mg/dL 70-110 H TESTED AT [place] [address] ([facility]) (test code = [facility] 1538) [address] POCT-GLUCOSE [id number] 07:53:00 Test Item Value Reference Range Interpretation Comments POC-GLUCOSE METER 87 mg/dL 70-110 TESTED AT [place] [address] ([facility]) (test code = [facility] [address] 1538) POCT-GLUCOSE [id number] 06:49:00 Test Item Value Reference Range Interpretation Comments POC-GLUCOSE METER 79 mg/dL 70-110 TESTED AT [place] [address] ([facility]) (test code = [facility] [address] 1538) COMPREHENSIVE METABOLIC [id number] 06:15:00 Test Item Value Reference Range Interpretation Comments TOTAL PROTEIN 5.1 gm/dL 6.0-8.3 L (AKER) (test code = 770) ALBUMIN ([facility]) 2.2 g/dL 3.5-5.0 L (test code = 1145) ALKALINE PHOSPHATASE 78 U/L 40-150 ([facility]) (test code = 346) BILIRUBIN TOTAL 1.1 [...] S NOT APPLICABLE FOR DIALYSIS PATIEN TS. [id number] 06:11:00 Test Item Value Reference Range Interpretation Comments MAGNESIUM (BEAKER) (test code = 2.1 mg/dL 1.6-2.6 627) HEPATIC FUNCTION [id number] 06:11:00 Test Item Value Reference Range Interpretation [...] code = 513 U/L 6-55 H 347) [id number] 05:30:00 Test Item Value Reference Range Interpretation Comments FIBRINOGEN LEVEL ([facility]) (test 368 mg/dl 225-434 code = 658) [id number] 05:30:00 Test Item Value Reference Range Interpretation Comments PARTIAL THROMBOPLASTIN TIME 42.2 seconds 22.5-36.0 H ([facility]) (test code = 760) PROTHROMBIN [id number] 05:29:00 Test Item Value Reference Range Interpretation Comments PROTIME ([facility]) (test code = 14.8 seconds 11.7-14.7 H 759) INR ([facility]) (test code = 370) 1.2 <=5.9 RECOMMENDED COUMADIN/WARFARIN INR THERAPY RANGESSTANDARD DOSE: 2.0 - 3.0 Includes: PROPHYLAXIS for venous thrombosis, systemic embolization; TREATMENT for venous thrombosis and/or pulmonary embolus.HIGH RISK: Target INR is 2.5-3.5 for patients with mechanical heart valves.POCT-GLUCOSE [id number] 21:09:00 Test Item Value Reference Range Interpretation Comments POC-GLUCOSE METER 178 mg/dL 70-110 H TESTED AT [place] [address] ([facility]) (test code = [place] [facility] 1538) [address] POCT-GLUCOSE [id number] 17:18:00 Test Item Value Reference Range Interpretation Comments POC-GLUCOSE METER 178 mg/dL 70-110 H TESTED AT [place] [address] ([facility]) (test code = [place] [facility] 1538) [address] POCT-GLUCOSE [id number] 13:48:00 Test Item Value Reference Range Interpretation Comments POC-GLUCOSE METER 150 mg/dL 70-110 H TESTED AT [place] [address] ([facility]) (test code = [place] [facility] 1538) [address] FACTOR 5 ACTIVITY (BLEEDING RISK)2017-01-06 10:04:00 Test Item Value Reference Range Interpretation Comments FACTOR V ACTIVITY ([facility]) (test code 90.0 % 60.0-150.0 = 665) Effective 10/24/2013: Reference Range Change-Adult onlyNew: 60.0-150.0 Previous: 50.0-150.0CYTOMEGALOVIRUS ANTIBODY, [id number] 09:42:00 Test Item Value Reference Range Interpretation Comments CYTOMEGALOVIRUS IGM ANTIBODY Negative (BEAKER) (test code = 816) HERPES VIRUS ANTIBODY, [id number] 08:59:00 Test Item Value Reference Range Interpretation Comments 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 G 1807) CYTOMEGALOVIRUS ANTIBODY, [id number] 08:59:00 Test Item Value Reference Range Interpretation Comments CYTOMEGALOVIRUS IGG ANTIBODY Positive (BEAKER) (test code = 790) EBV-VCA ANTIBODY, [id number] 08:59:00 Test Item Value Reference Range Interpretation Comments JASE-WALL VCA IGG (BEAKER) (test Positive code = 983) EBV-VCA ANTIBODY, [id number] 08:59:00 Test Item Value Reference Range Interpretation Comments JASE-WALL VCA IGM (BEAKER) (test Negative code = 984) POCT-GLUCOSE [id number] 07:59:00 Test Item Value Reference Range Interpretation Comments POC-GLUCOSE METER 81 mg/dL 70-[address] [facility] [facility] (test code = [place] [facility] [address] 1538) COMPREHENSIVE METABOLIC [id number] 06:23:00 Test Item Value Reference Range Interpretation [...] S NOT APPLICABLE FOR DIALYSIS PATIEN TS. [id number] 06:17:00 Test Item Value Reference Range Interpretation Comments MAGNESIUM (BEAKER) (test code = 1.8 mg/dL 1.6-2.6 627) HEPATIC FUNCTION [id number] 06:17:00 Test Item Value Reference Range Interpretation [...] code = 779 U/L 6-55 H 347) [id number] 06:00:00 Test Item Value Reference Range Interpretation Comments FIBRINOGEN LEVEL (BEAKER) (test 390 mg/dl 225-434 code = 658) [id number] 06:00:00 Test Item Value Reference Range Interpretation Comments PARTIAL THROMBOPLASTIN TIME 40.2 seconds 22.5-36.0 H (BEAKER) (test code = 760) PROTHROMBIN [id number] 05:59:00 Test Item Value Reference Range Interpretation Comments PROTIME (BEAKER) (test code = 14.6 seconds 11.7-14.7 759) INR (BEAKER) (test code = 370) 1.2 <=5.9 RECOMMENDED COUMADIN/WARFARIN INR THERAPY RANGESSTANDARD DOSE: 2.0 - 3.0 Includes: PROPHYLAXIS for venous thrombosis, systemic embolization; TREATMENT for venous thrombosis and/or pulmonary embolus.HIGH RISK: Target INR is 2.5-3.5 for patients with mechanical heart valves.POCT-GLUCOSE [id number] 21:46:00 Test Item Value Reference Range Interpretation Comments POC-GLUCOSE METER 153 mg/dL 70-110 H TESTED AT [place] [address] ([facility]) (test code = [facility] 1538) [address] POCT-GLUCOSE [id number] 18:47:00 Test Item Value Reference Range Interpretation Comments POC-GLUCOSE METER 181 mg/dL 70-110 H TESTED AT [place] [address] ([facility]) (test code = [facility] 1538) [address] POCT-GLUCOSE [id number] 12:40:00 Test Item Value Reference Range Interpretation Comments POC-GLUCOSE METER 178 mg/dL 70-110 H TESTED AT [place] [address] ([facility]) (test code = [facility] 1538) [address] POCT-GLUCOSE [id number] 07:51:00 Test Item Value Reference Range Interpretation Comments POC-GLUCOSE METER 166 mg/dL 70-110 H TESTED AT [place] [address] ([facility]) (test code = [facility] 1538) [address] COMPREHENSIVE METABOLIC [id number] 03:26:00 Test Item Value Reference Range Interpretation Comments TOTAL PROTEIN 5.2 gm/dL 6.0-8.3 L ([facility]) (test code = 770) ALBUMIN (BEAKER) 2.3 g/dL 3.5-5.0 L (test code = 1145) ALKALINE PHOSPHATASE 72 U/L 40-150 (AKER) (test code = 346) BILIRUBIN TOTAL 2.0 mg/dL 0.2-1.2 H (AKER) (test code = 377) SODIUM (BEAKER) (test [...] S NOT APPLICABLE FOR DIALYSIS PATIEN TS. [id number] 03:22:00 Test Item Value Reference Range Interpretation Comments MAGNESIUM (BEAKER) (test code = 1.4 mg/dL 1.6-2.6 L 627) HEPATIC FUNCTION [id number] 03:22:00 Test Item Value Reference Range Interpretation [...] code = 1009 U/L 6-55 H 347) [id number] 03:12:00 Test Item Value Reference Range Interpretation Comments AMMONIA (BEAKER) (test code = 348) 29 mol/L 18-72 [id number] 03:10:00 Test Item Value Reference Range Interpretation Comments PARTIAL THROMBOPLASTIN TIME 42.3 seconds 22.5-36.0 H (BEAKER) (test code = 760) PROTHROMBIN [id number] 03:09:00 Test Item Value Reference Range Interpretation Comments PROTIME (BEAKER) (test code = 16.4 seconds 11.7-14.7 H 759) INR (BEAKER) (test code = 370) 1.3 <=5.9 RECOMMENDED COUMADIN/WARFARIN INR THERAPY RANGESSTANDARD DOSE: 2.0 - 3.0 Includes: PROPHYLAXIS for venous thrombosis, systemic embolization; TREATMENT for venous thrombosis and/or pulmonary embolus.HIGH RISK: Target INR is 2.5-3.5 for patients with mechanical heart valves.[id number] 03:09:00 Test Item Value Reference Range Interpretation Comments FIBRINOGEN LEVEL (BEAKER) (test 413 mg/dl 225-434 code = 658) CBC W/PLT COUNT & AUTO [id number] 03:09:00 Test Item Value Reference Range Interpretation [...] L 0.00-0.20 (test code = 417) 0.00POCT-GLUCOSE [id number] 22:33:00 Test Item Value Reference Range Interpretation Comments POC-GLUCOSE METER 230 mg/dL 70-[address] [facility] 67[address] [facility] (test code = [facility] 1538) [address] POCT-GLUCOSE [id number] 18:17:00 Test Item Value Reference Range Interpretation Comments POC-GLUCOSE METER 222 mg/dL 70-[address] [facility] 67[address] [facility] (test code = [facility] 1538) [address] COMPREHENSIVE METABOLIC [id number] 16:59:00 Test Item Value Reference Range Interpretation [...] PATIEN TS. PERIPHERAL BLOOD SMEAR - PATHOLOGIST [id number] 15:30:00 Test Item Value Reference Range Interpretation Comments RBC MORPHOLOGY Polychromasia (BEAKER) (test code = 2846) RBC MORPHOLOGY Anisocytosis (BEAKER) (test code = 62524) PERIPHERAL SMR REVIEW Cell counts confirmed (BEAKER) (test code = 2640) [id number] Josefina Lara M.D. (BEAKER) (test code = (electronic signature) 6155) PROTHROMBIN [id number] 15:12:00 Test Item Value Reference Range Interpretation Comments PROTIME (BEAKER) (test code = 16.6 seconds 11.7-14.7 H 759) INR (BEAKER) (test code = 370) 1.4 <=5.9 RECOMMENDED COUMADIN/WARFARIN INR THERAPY RANGESSTANDARD DOSE: 2.0 - 3.0 Includes: PROPHYLAXIS for venous thrombosis, systemic embolization; TREATMENT for venous thrombosis and/or pulmonary embolus.HIGH RISK: Target INR is 2.5-3.5 for patients with mechanical heart valves.ANTI-NUCLEAR ANTIBODY (IVETTE)2017-01-04 14:32:00 Test Item Value Reference Range Interpretation Comments ANTI-NUCLEAR ANTIBODY (IVETTE) (BEAKER) Negative Negative (test code = 418) POCT-GLUCOSE [id number] 12:47:00 Test Item Value Reference Range Interpretation Comments POC-GLUCOSE METER 212 mg/dL 70-[address] [facility] 67[address] (MADIE) (test code = [place] 1538) [address] [id number] 12:34:00 Test Item Value Reference Range Interpretation Comments RPR SCREEN (MADIE) (test code = Nonreactive Nonreactive 420) CLOSTRIDIUM DIFFICILE TOXIN [id number] 10:12:00 Test Item Value Reference Range Interpretation [...] formed stools will be rejected unless ileus ispresent (i.e., specified when ordering). Patients may be colonized with toxigenic C.difficile strains not causing active disease; therefore, clinical correlation is needed when deciding how to manage patients with a positive test result.The assay has not been validated as a test of cure as amplifiablenucleic acid may persist after effective treatment; therefore, [...] Reference Range Change-Adult onlyNew: 60.0-150.0 Previous: 50.0-150.0POCT-GLUCOSE [id number] 06:40:00 Test Item Value Reference Range Interpretation Comments POC-GLUCOSE METER 167 mg/dL 70-[address] [facility] 6720 (BEAKER) (test code = [place] 1538) [address] COMPREHENSIVE METABOLIC [id number] 04:08:00 Test Item Value Reference Range Interpretation [...] ESTIM ATED GFR. Specimen slightly ictericHEPATIC FUNCTION [id number] 04:06:00 Test Item Value Reference Range Interpretation [...] 1091 U/L 6-55 H 347) Specimen slightly [id number] 04:01:00 Test Item Value Reference Range Interpretation Comments FIBRINOGEN LEVEL (BEAKER) (test 379 mg/dl 225-434 code = 658) [id number] 04:01:00 Test Item Value Reference Range Interpretation Comments PARTIAL THROMBOPLASTIN TIME 40.7 seconds 22.5-36.0 H (BEAKER) (test code = 760) PROTHROMBIN [id number] 04:00:00 Test Item Value Reference Range Interpretation Comments PROTIME (BEAKER) (test code = 18.7 seconds 11.7-14.7 H 759) INR (BEAKER) (test code = 370) 1.6 <=5.9 RECOMMENDED COUMADIN/WARFARIN INR THERAPY RANGESSTANDARD DOSE: 2.0 - 3.0 Includes: PROPHYLAXIS for venous thrombosis, systemic embolization; TREATMENT for venous thrombosis and/or pulmonary embolus.HIGH RISK: Target INR is 2.5-3.5 for patients with mechanical heart valves.CBC W/PLT COUNT & AUTO [id number] 03:56:00 Test Item Value Reference Range Interpretation [...] L 0.00-0.20 (test code = 417) 0.00POCT-GLUCOSE [id number] 00:19:00 Test Item Value Reference Range Interpretation Comments POC-GLUCOSE METER 159 mg/dL 70-[address] [facility] 67 ([facility]) (test code = [place] 1538) [address] POCT-GLUCOSE [id number] 18:56:00 Test Item Value Reference Range Interpretation Comments POC-GLUCOSE METER 192 mg/dL 70-[address] [facility] 67[address] [facility] (test code = [place] 1538) [address] COMPREHENSIVE METABOLIC [id number] 16:55:00 Test Item Value Reference Range Interpretation [...] CALCULATE ESTIM ATED GFR. Specimen slightly ictericPROTHROMBIN [id number] 16:37:00 Test Item Value Reference Range Interpretation Comments PROTIME (BEAKER) (test code = 20.9 seconds 11.7-14.7 H 759) INR (BEAKER) (test code = 370) 1.8 <=5.9 RECOMMENDED COUMADIN/WARFARIN INR THERAPY RANGESSTANDARD DOSE: 2.0 - 3.0 Includes: PROPHYLAXIS for venous thrombosis, systemic embolization; TREATMENT for venous thrombosis and/or pulmonary embolus.HIGH RISK: Target INR is 2.5-3.5 for patients with mechanical heart valves.HEPATITIS B SURFACE [id number] 14:05:00 Test Item Value Reference Range Interpretation Comments HEPATITIS B SURFACE ANTIBODY < mIU/mL <8.0 (BEAKER) (test code = 647) HEPATITIS B CORE ANTIBODY, [id number] 13:43:00 Test Item Value Reference Range Interpretation Comments HEPATITIS B CORE TOTAL ANTIBODY Nonreactive Nonreactive (BEAKER) (test code = 497) BLOOD GAS, [id number] 13:35:00 Test Item Value Reference Range Interpretation [...] code = 1819) 28.0 % URINALYSIS W/ [id number] 13:16:00 Test Item Value Reference Range Interpretation [...] 1584) SOURCE(BEAKER) (test code = Urine, [place] 8699) VITAMIN D, [id number] 13:14:00 Test Item Value Reference Range Interpretation Comments VITAMIN D 25-OH (BEAKER) (test code = < ng/mL 13.0-47.8 L 2764) ALPHA FETOPROTEIN (AFP), TUMOR [id number] 13:06:00 Test Item Value Reference Range Interpretation Comments ALPHA-FETOPROTEIN (BEAKER) (test code < ng/mL <10.0 = 1094) Effective 05/08/2014: Reference Range ChangeNew: <10.0 Previous: 0.0-8.0 HEMOGLOBIN [id number] 13:05:00 Test Item Value Reference Range Interpretation Comments HEMOGLOBIN A1C (BEAKER) (test code = 7.6 % 4.3-6.1 H 368) CARCINOEMBRYONIC ANTIGEN (CEA)2017-01-03 12:59:00 Test Item Value Reference Range Interpretation Comments CARCINOEMBRYONIC ANTIGEN (BEAKER) 2.0 ng/mL 0.0-5.0 (test code = 685) [id number] 12:59:00 Test Item Value Reference Range Interpretation Comments FERRITIN (BEAKER) (test code = 1841 ng/mL 5-275 H 361) Effective 05/08/2014: Reference Range ChangeNew: Male 5-275 Previous: Male 22- 322 Female 5-275 Female [id number] 12:58:00 Test Item Value Reference Range Interpretation Comments T4 TOTAL (BEAKER) (test code = 895) 4.5 ug/dL 4.9-11.7 L [id number] 12:58:00 Test Item Value Reference Range Interpretation Comments THYROID STIMULATING HORMONE 1.79 uIU/mL 0.35-4.94 (BEAKER) (test code = 772) [id number] 12:58:00 Test Item Value Reference Range Interpretation Comments T3 TOTAL (BEAKER) (test code = 656) 34 ng/dL 48-159 L Effective 05/08/2014: Reference Range ChangeNew: 48-159 Previous: 60-181CALCIUM, [id number] 12:47:00 Test Item Value Reference Range Interpretation Comments CALCIUM IONIZED (BEAKER) (test 1.05 mmol/L 1.12-1.27 L code = 698) PH, BLOOD (BEAKER) (test code = 7.43 1810) [id number] 12:42:00 Test Item Value Reference Range Interpretation [...] % 20-55 (test code = 2590) URIC [id number] 12:40:00 Test Item Value Reference Range Interpretation Comments URIC ACID (BEAKER) (test code = 16.0 mg/dL 2.6-7.2 H 773) Specimen slightly ictericLIPID [id number] 12:40:00 Test Item Value Reference Range Interpretation Comments TRIGLYCERIDES (BEAKER) (test code = 134 mg/dL 540) CHOLESTEROL (BEAKER) (test code = 120 mg/dL 631) HDL CHOLESTEROL (BEAKER) (test code 7 mg/dL = 976) LDL CHOLESTEROL CALCULATED (BEAKER) 86 mg/dL (test code = 633) Triglyceride Reference Range: Low Risk <150 Borderline 150-199 High Risk 200- 499 Very High Risk >=500Cholesterol Reference Range: Low Risk <200 Borderline 200-239 High Risk >240HDL Cholesterol Reference Range: Low Risk >=60 High Risk <40LDL Cholesterol Reference Range: Optimal <100 Near Optimal 100-129 Borderline 130-159 High 160-189 Very High >=190 Specimen slightly ictericBILIRUBIN, [id number] 12:40:00 Test Item Value Reference Range Interpretation Comments BILIRUBIN DIRECT (MADIE) (test 2.4 mg/dL 0.1-0.5 H code = 706) GAMMA GLUTAMYL TRANSFERASE (GGT)2017-01-03 12:40:00 Test Item Value Reference Range Interpretation Comments GAMMA GLUTAMYL TRANSFERASE (MADIE) 53 U/L 9-64 (test code = 364) Specimen slightly [id number] 12:39:00 Test Item Value Reference Range Interpretation Comments ETHANOL (MADIE) (test code = 400) < mg/dL <=10 SCREEN, [id number] 12:36:00 Test Item Value Reference Range Interpretation Comments TEST URINE (MADIE) (test Negative code = 583) POCT-GLUCOSE [id number] 12:34:00 Test Item Value Reference Range Interpretation Comments POC-GLUCOSE METER 189 mg/dL 70-[address] [facility] 6720 (MADIE) (test code = [place] 1538) [address] HIV-1 ANTIGEN WITH HIV-1/2 [id number] 11:58:00 Test Item Value Reference Range Interpretation Comments HIV-1 ANTIGEN WITH HIV 1\\T\\2 Nonreactive Nonreactive ANTIBODY (2) (MADIE) (test code = 2586) TROPONIN [id number] 09:44:00 Test Item Value Reference Range Interpretation Comments TROPONIN I (MADIE) (test code = 0.34 ng/mL 0.00-0.03 397) Effective 05/08/2014: Reference Range ChangeNew: 0.00-0.03 Previous 0.00- 0.15Troponin I (TnI) levelsmust be interpreted in the context of the [...] failure, acidosis, acute neurological disease, and persistent tachyarrhythmia.CREATINE [...] 0.0-6.6 Previous: 0.0-4.9CK-MB Reference Range:<6.7 Normal6.7-10.0 Borderline>10.0 Abnormal ACETAMINOPHEN [id number] 08:31:00 Test Item Value Reference Range Interpretation Comments ACETAMINOPHEN LEVEL (BEAKER) (test < ug/mL 10.0-30.0 L code = 344) TROPONIN [id number] 05:53:00 Test Item Value Reference Range Interpretation Comments TROPONIN I (BEAKER) (test code = 0.33 ng/mL 0.00-0.03 HH 397) Effective 05/08/2014: Reference Range ChangeNew: 0.00-0.03 Previous 0.00- 0.15Troponin I (TnI) levelsmust be interpreted in the context of the [...] failure, acidosis, acute neurological disease, and persistent tachyarrhythmia.BASIC METABOLIC [id number] 05:53:00 Test Item Value Reference Range Interpretation [...] TO CALCULA TE ESTIMATED GFR. Specimen slightly [id number] 05:52:00 Test Item Value Reference Range Interpretation Comments PHOSPHORUS (BEAKER) (test code = 5.7 mg/dL 2.3-4.7 H 604) HEPATIC FUNCTION [id number] 05:52:00 Test Item Value Reference Range Interpretation [...] Specimen slightly ictericCREATINE KINASE (CK), TOTAL AND [id number] 05:52:00 Test Item Value Reference Range Interpretation Comments CREATINE KINASE TOTAL (BEAKER) 341 U/L 29-200 H (test code = 380) CREATINE KINASE-MB (BEAKER) (test 5.4 ng/mL 0.0-6.6 code = 750) CREATINE KINASE-MB INDEX (BEAKER) 1.6 % (test code = 395) Effective 05/08/2014: CK-MB Reference Range ChangeNew: 0.0-6.6 Previous: 0.0-4.9CK-MB Reference Range:<6.7 Normal6.7-10.0 Borderline>10.0 Abnormal CBC W/PLT COUNT & AUTO [id number] 05:48:00 Test Item Value Reference Range Interpretation [...] K/ L 0.00-0.20 (test code = 417) [id number] 05:09:00 Test Item Value Reference Range Interpretation Comments FIBRINOGEN LEVEL (BEAKER) (test 427 mg/dl 225-434 code = 658) [id number] 05:09:00 Test Item Value Reference Range Interpretation Comments PARTIAL THROMBOPLASTIN TIME 36.2 seconds 22.5-36.0 H (BEAKER) (test code = 760) PROTHROMBIN [id number] 05:08:00 Test Item Value Reference Range Interpretation Comments PROTIME (BEAKER) (test code = 22.8 seconds 11.7-14.7 H 759) INR (BEAKER) (test code = 370) 2.0 <=5.9 RECOMMENDED COUMADIN/WARFARIN INR THERAPY RANGESSTANDARD DOSE: 2.0 - 3.0 Includes: PROPHYLAXIS for venous thrombosis, systemic embolization; TREATMENT for venous thrombosis and/or pulmonary embolus.HIGH RISK: Target INR is 2.5-3.5 for patients with mechanical heart valves.HEPATITIS PANEL, [id number] 03:40:00 Test Item Value Reference Range Interpretation Comments HEPATITIS A IGM ANTIBODY (BEAKER) Nonreactive Nonreactive (test code = 498) HEPATITIS B CORE IGM ANTIBODY Nonreactive Nonreactive (BEAKER) (test code = 645) HEPATITIS C ANTIBODY (BEAKER) Nonreactive Nonreactive (test code = 367) HEPATITIS B SURFACE ANTIGEN (2) Nonreactive Nonreactive (BEAKER) (test code = 2585) CREATININE, RANDOM [id number] 03:18:00 Test Item Value Reference Range Interpretation Comments CREATININE URINE (BEAKER) (test 118.7 mg/dL code = 375) Reference Range: No NormalsSODIUM, RANDOM [id number] 03:18:00 Test Item Value Reference Range Interpretation Comments SODIUM URINE (BEAKER) (test code = 60 meq/L 243) Reference Range: No NormalsUREA NITROGEN, RANDOM [id number] 03:18:00 Test Item Value Reference Range Interpretation Comments UREA NITROGEN URINE (BEAKER) (test 303 mg/dL code = 538) Reference Range: No [id number] 03:07:00 Test Item Value Reference Range Interpretation Comments AMMONIA (BEAKER) (test code = 348) 48 mol/L 18-72 [id number] 02:57:00 Test Item Value Reference Range Interpretation [...] within 95-100% range. URINALYSIS W/ REFLEX URINE [id number] 02:53:00 Test Item Value Reference Range Interpretation [...] = 514) SOURCE(BEAKER) (test code = 2795) [id number] 02:49:00 Test Item Value Reference Range Interpretation Comments PARTIAL THROMBOPLASTIN TIME 39.4 seconds 22.5-36.0 H (BEAKER) (test code = 760) PROTHROMBIN TIME/[id number] 02:48:00 Test Item Value Reference Range Interpretation Comments PROTIME (BEAKER) (test code = 22.0 seconds 11.7-14.7 H 759) INR (BEAKER) (test code = 370) 1.9 <=5.9 RECOMMENDED COUMADIN/WARFARIN INR THERAPY RANGESSTANDARD DOSE: 2.0 - 3.0 Includes: PROPHYLAXIS for venous thrombosis, systemic embolization; TREATMENT for venous thrombosis and/or pulmonary embolus.HIGH RISK: Target INR is 2.5-3.5 for patients with mechanical heart valves.[id number] 02:48:00 Test Item Value Reference Range Interpretation Comments FIBRINOGEN LEVEL (BEAKER) (test 421 mg/dl 225-434 code = 658) BLOOD GAS, [id number] 02:43:00 Test Item Value Reference Range Interpretation [...] 21.0 % CBC W/PLT COUNT & AUTO [id number] 02:43:00 Test Item Value Reference Range Interpretation [...] code = 417) 0.00LACTIC ACID, VENOUS, WHOLE [id number] 02:35:00 Test Item Value Reference Range Interpretation Comments LACTATE BLOOD VENOUS (2) (BEAKER) 0.8 mmol/L 0.5-2.2 (test code = 2872) Effective 10/23/2015: Units/Reference Range ChangeNew: 0.5-2.2 mmol/L Previous: 5- 20 mg/dLSpecimen slightly scpbekgCSRRQVUNSGSO2561-35-08 11:32:00 Test Item Value Reference Range Interpretation Comments AGAP (test code = AGAP) 14.6 10.0-20.0 [facility] NfjhrlyANYKEOKFPTHJ0608-99-40 11:32:00 Test Item Value Reference Range Interpretation Comments eGFR (test code = eGFR) [address] [facility] HospitalVyalqcfUUEBGDAVQYMU4145-57-00 11:32:00 Test Item Value Reference Range Interpretation Comments Calcium Lvl (test code = Calcium Lvl) 8.3 8.5-10.[address] [facility] HospitalYawrfdxCELACQHVDEBB2291-23-59 11:32:00 Test Item Value Reference Range Interpretation Comments Glucose Lvl (test code = Glucose Lvl) 81 70-[address] [facility] HospitalRivuxwwRHYIJSJGOFYG7357-92-29 11:32:00 Test Item Value Reference Range Interpretation Comments Creatinine Lvl (test code = Creatinine 1.95 0.50-1.40 Lvl) [facility] HospitalOndmzvvPANPXVCNJZFB2961-16-85 11:32:00 Test Item Value Reference Range Interpretation Comments BUN (test code = BUN) 55 7-[address] [facility] HospitalJvkgzwqEFURWFPVPDHR3690-86-75 11:32:00 Test Item Value Reference Range Interpretation Comments CO2 (test code = CO2) 19 24-[address] [facility] HospitalOkepkaaUZNUAILZEMYN5138-31-98 11:32:00 Test Item Value Reference Range Interpretation Comments Chloride Lvl (test code = Chloride Lvl) 110 95-[address] [facility] HospitalOquiwsfDNAEFAIMYXWB8111-63-87 11:32:00 Test Item Value Reference Range Interpretation Comments Sodium Lvl (test code = Sodium Lvl) 139 135-[address] [facility] HospitalOqtezdfWZFZLUHSUPUY6180-74-12 11:32:00 Test Item Value Reference Range Interpretation Comments Potassium Lvl (test code = Potassium 4.6 3.5-5.1 Lvl) [facility] CenterNjzhytiIJQCROAMZV8956-84-08 11:32:00 Test Item Value Reference Range Interpretation Comments Lymphocytes (test code = Lymphocytes) 30.4 20.0-40.[address] [facility] CenterWeyolnaLSQSHRAFOM6811-40-56 11:32:00 Test Item Value Reference Range Interpretation Comments Eosinophils (test code = 4.5 See_Comment [A utomated message] The Eosinophils) system which ge nerated this result tra nsmitted reference range : <=4.0. The reference r leo was not used to int erpret this result as normal/abnormal . [facility] CenterSkrdezyXMWGFALIBO3232-02-38 11:32:00 Test Item Value Reference Range Interpretation Comments Monocytes (test code = Monocytes) 13.7 2.0-12.[address] [facility] CenterJpacmcnMLQMETLPUE9159-76-92 11:32:00 Test Item Value Reference Range Interpretation Comments Segs-Bands # (test code = Segs-Bands #) 2.6 1.5-8.[address] [facility] CenterWgowapsGBNEDPZHFK5086-62-00 11:32:00 Test Item Value Reference Range Interpretation Comments Basophils (test code = 0.7 See_Comment [Aut omated message] The Basophils) system which ge nerated this result tra nsmitted reference range : <=1.0. The reference r leo was not used to int erpret this result as normal/abnormal . [facility] CenterIedhqhgXDXKFDTLNA6405-57-83 11:32:00 Test Item Value Reference Range Interpretation Comments Monocytes # (test code 0.7 See_Comment [Aut omated message] The = Monocytes #) system which generated this result tra nsmitted reference range : <=0.8. The reference r leo was not used to int erpret this result as normal/abnormal . [facility] CenterNrhsgwfJGBJVQGQNS9766-87-09 11:32:00 Test Item Value Reference Range Interpretation Comments Lymphocytes # (test code = Lymphocytes 1.6 1.0-5.5 #) [facility] CenterOlvglxtPSJCCFICKY6293-89-22 11:32:00 Test Item Value Reference Range Interpretation Comments Eosinophils # (test code 0.2 See_Comment [A utomated message] The = Eosinophils #) system whic h generated this result tra nsmitted reference range : <=0.5. The reference r leo was not used to int erpret this result as normal/abnormal . [facility] CenterEignxrsMMBQEVAMPQ8539-67-11 11:32:00 Test Item Value Reference Range Interpretation Comments Segs (test code = Segs) 50.7 45.0-75.[address] [facility] CenterZwpryqmQTUTLDLGHC5532-52-64 11:32:00 Test Item Value Reference Range Interpretation [...] iron deficiency anemia, and renal disease. CPT: [address] [facility] CenterYgfagydSVUVWQQCPN4237-26-14 11:32:00 Test Item Value Reference Range Interpretation Comments Hct (test code = Hct) 28.1 36.0-48.[address] [facility] CenterWzhbzgkPFNKTAOSZL4562-70-90 11:32:00 Test Item Value Reference Range Interpretation Comments RBC (test code = RBC) 3.39 4.20-5.[address] [facility] CenterDtoylloJLFJWOIGQY4912-93-60 11:32:00 Test Item Value Reference Range Interpretation Comments Hgb (test code = Hgb) 8.9 12.0-16.[address] [facility] CenterUvfupqwAEENFLRWDE1916-65-84 11:32:00 Test Item Value Reference Range Interpretation Comments WBC (test code = WBC) 5.1 3.7-10.[address] [facility] CenterAnzllplHWQMAGNUBO5078-47-66 11:32:00 Test Item Value Reference Range Interpretation Comments MPV (test code = MPV) 11.3 7.4-10.[address] [facility] CenterPeuavyvEQWIUHBPXR0965-35-28 11:32:00 Test Item Value Reference Range Interpretation Comments Platelet (test code = Platelet) 118 133-[address] [facility] CenterCuampueAOTZAZYUBD6666-83-34 11:32:00 Test Item Value Reference Range Interpretation Comments MCHC (test code = MCHC) 31.8 32.0-36.[address] [facility] CenterExuaexkUGPWUOTEBZ9721-24-06 11:32:00 Test Item Value Reference Range Interpretation Comments RDW (test code = RDW) 18.0 11.5-14.[address] [facility] CenterGivsrzfAXWWQMXHBK8197-51-04 11:32:00 Test Item Value Reference Range Interpretation Comments MCV (test code = MCV) 83.0 80.0-98.[address] [facility] CenterHdqygxtSUUXIWRLWG5504-31-03 11:32:00 Test Item Value Reference Range Interpretation Comments MCH (test code = MCH) 26.4 pg 27.0-31.0 [facility] DallasIubvezfWNFCTTZXDR8408-80-18 11:32:00 Test Item Value Reference Range Interpretation Comments C3 Complement (test code = C3 137 88-201 Complement) [facility] DallasJahgmpkPODMCOFOXS1683-67-66 11:32:00 Test Item Value Reference Range Interpretation Comments HIV. (test code = Negative *NA*(07/30/16 HIV.) 5:32 AM) [facility] CenterBmshpoxFYDJRJDCET6480-99-40 11:05:00 Test Item Value Reference Range Interpretation [...] iron deficiency anemia, and renal disease. CPT: 77215 [facility] DallasYptjqnnSEQAQKMCMB1004-77-88 11:05:00 Test Item Value Reference Range Interpretation Comments HIV. (test code = Negative *NA*(07/29/16 HIV.) 5:05 AM) [facility] DallasZahesleEKGWRXEPZL9370-08-84 11:05:00 Test Item Value Reference Range Interpretation Comments C3 Complement (test code = C3 92 88-201 Complement) [facility]2017-02-07 15:50:00 Test Item Value Reference Range Interpretation Comments eGFR (test code = eGFR) 25 [facility]2017-02-07 15:50:00 Test Item Value Reference Range Interpretation Comments BUN (test code = BUN) 55 7-22 [facility]2017-02-07 15:50:00 Test Item Value Reference Range Interpretation Comments CO2 (test code = CO2) 23 24-32 [facility]2017-02-07 15:50:00 Test Item Value Reference Range Interpretation Comments Chloride Lvl (test code = Chloride Lvl) 109 95-109 [facility]2017-02-07 15:50:00 Test Item Value Reference Range Interpretation Comments Glucose Lvl (test code = Glucose Lvl) 101 70-99 [facility]2017-02-07 15:50:00 Test Item Value Reference Range Interpretation Comments Potassium Lvl (test code = Potassium 4.0 3.5-5.1 Lvl) [facility]2017-02-07 15:50:00 Test Item Value Reference Range Interpretation Comments Sodium Lvl (test code = Sodium Lvl) 141 135-145 [facility]2017-02-07 15:50:00 Test Item Value Reference Range Interpretation Comments AGAP (test code = AGAP) 13.0 10.0-20.0 [facility]2017-02-07 15:50:00 Test Item Value Reference Range Interpretation Comments Calcium Lvl (test code = Calcium Lvl) 7.7 8.5-10.5 [facility]CHE[facility] ETKRI5881-94-26 15:50:00 Test Item Value Reference Range Interpretation Comments Creatinine Lvl (test code = Creatinine 2.49 0.50-1.40 Lvl) [facility] CenterFdzuwivJBMEEDEAOV8824-76-51 15:50:00 Test Item Value Reference Range Interpretation Comments PT (test code = PT) 14.8 s 12.0-14.[address] [facility] CenterUnihnxaZEKBPEYWSU5697-73-63 15:50:00 Test Item Value Reference Range Interpretation Comments PTT (test code = PTT) 40.8 s 22.9-35.[address] [facility] CenterBxmhhxfOTKRMHOACF5379-49-55 15:50:00 Test Item Value Reference Range Interpretation Comments INR (test code = INR) 1.14 0.85-1.17 [facility] TemplePuhwfjkJCJSTFTUKC1510-88-67 15:50:00 Test Item Value Reference Range Interpretation Comments C3 Complement (test code = C3 94 88-201 Complement) [facility] CenterFznzdxgOKFAJGODMS5395-43-92 10:35:00 Test Item Value Reference Range Interpretation Comments Lymphocytes # (test code = Lymphocytes 1.7 1.0-5.5 #) [facility] CenterCevjdwtLHANLOVSHS2486-23-85 10:35:00 Test Item Value Reference Range Interpretation Comments Segs-Bands # (test code = Segs-Bands #) 2.7 1.5-8.[address] [facility] CenterHgdkbyvSAOPLTRQWG5740-31-06 10:35:00 Test Item Value Reference Range Interpretation Comments Eosinophils # (test code 0.1 See_Comment [A utomated message] The = Eosinophils #) system whic h generated this result tra nsmitted reference range : <=0.5. The reference r leo was not used to int erpret this result as normal/abnormal . [facility] CenterPiawianOWRZFKWVUA3057-53-98 10:35:00 Test Item Value Reference Range Interpretation Comments Monocytes # (test code 0.7 See_Comment [Aut omated message] The = Monocytes #) system which generated this result tra nsmitted reference range : <=0.8. The reference r leo was not used to int erpret this result as normal/abnormal . [facility] CenterXogqhkoJGNRHXGAXL0996-85-24 10:35:00 Test Item Value Reference Range Interpretation Comments Segs (test code = Segs) 51.3 45.0-75.[address] [facility] CenterPsbovzcWHCXDAFMFV4665-17-64 10:35:00 Test Item Value Reference Range Interpretation Comments Lymphocytes (test code = Lymphocytes) 31.6 20.0-40.[address] [facility] CenterDidzydtEVXXTBEQKP0773-14-76 10:35:00 Test Item Value Reference Range Interpretation Comments Monocytes (test code = Monocytes) 14.1 2.0-12.[address] [facility] CenterNwlfceaBGPMVYCOTW1267-17-72 10:35:00 Test Item Value Reference Range Interpretation Comments Eosinophils (test code = 2.6 See_Comment [A utomated message] The Eosinophils) system which ge nerated this result tra nsmitted reference range : <=4.0. The reference r leo was not used to int erpret this result as normal/abnormal . [facility] CenterYgarpnvDTSTLTBZIP6284-90-12 10:35:00 Test Item Value Reference Range Interpretation Comments Basophils (test code = 0.4 See_Comment [Aut omated message] The Basophils) system which ge nerated this result tra nsmitted reference range : <=1.0. The reference r leo was not used to int erpret this result as normal/abnormal . [facility] CenterIccekguQEGMVOEMQK4198-95-24 10:35:00 Test Item Value Reference Range Interpretation Comments PB Smear Path Peripheral blood smear shows (test code = PB hypochromic normocytic Smear Path) anemia with anisopoikilocytsosis, no increase in schistocytes, slight polychromasia, a few estella cells, moderate thrombocytopenia. Impression: (1) no evidence of microangiopathic hemolysis, (2) RBC morphology is suggestive of anemia of chronic disease or iron deficiency anemia, and renal disease. CPT: [address] [facility] CenterPcyyezaEZSYHFTMAL9094-64-62 10:35:00 Test Item Value Reference Range Interpretation Comments Hct (test code = Hct) 29.3 36.0-48.[address] [facility] CenterWbhuowyUBIUYAGCYV1219-58-07 10:35:00 Test Item Value Reference Range Interpretation Comments Hgb (test code = Hgb) 9.2 12.0-16.[address] [facility] CenterFnuxnvqFEUAMIPMEN8813-85-12 10:35:00 Test Item Value Reference Range Interpretation Comments RBC (test code = RBC) 3.54 4.20-5.40 [facility] TempleYgmdeoxTCUIWUBQZX7731-87-34 10:35:00 Test Item Value Reference Range Interpretation Comments WBC (test code = WBC) 5.3 3.7-10.4 [facility] TempleRdrmmqjFPVCWSYJSF6084-98-44 10:35:00 Test Item Value Reference Range Interpretation Comments Platelet (test code = Platelet) 87 133-450 [facility] TempleMdqzqdaHKNVSDXVYF0081-57-54 10:35:00 Test Item Value Reference Range Interpretation Comments MCHC (test code = MCHC) 31.4 32.0-36.0 [facility] TtbymujDDLAKQDEAL4737-80-62 10:35:00 Test Item Value Reference Range Interpretation Comments RDW (test code = RDW) 17.9 11.5-14.5 [facility] TempleUigrissTTIZADRUZD8360-58-36 10:35:00 Test Item Value Reference Range Interpretation Comments MPV (test code = MPV) 10.9 7.4-10.[address] [facility] HospitalFcooeuuDAUGKMGQUH7663-78-90 10:35:00 Test Item Value Reference Range Interpretation Comments MCH (test code = MCH) 26.0 pg 27.0-31.0 [facility] TempleIbvpifhORFUQWZYBZ8245-21-31 10:35:00 Test Item Value Reference Range Interpretation Comments MCV (test code = MCV) 82.8 80.0-98.0 [facility] TempleCjhxyujXIPZNKBPPB5942-68-05 10:35:00 Test Item Value Reference Range Interpretation Comments HIV. (test code = Negative *NA*(07/28/16 HIV.) 4:35 AM) [facility] HospitalMelody ManagementCARDIAC NPJCNFA1476-64-92 10:22:00 Test Item Value Reference Range Interpretation Comments Total CK (test code = Total CK) 190 12-191 [facility] [employer]CHE[employer] VVXGM2888-38-61 10:22:00 Test Item Value Reference Range Interpretation Comments Calcium Lvl (test code = Calcium Lvl) 7.8 8.5-10.5 [facility] [employer] LYDMN5822-14-84 10:22:00 Test Item Value Reference Range Interpretation Comments CO2 (test code = CO2) 21 24-32 [facility] HospitalVeros Systems WPBYV8626-11-33 10:22:00 Test Item Value Reference Range Interpretation Comments Sodium Lvl (test code = Sodium Lvl) 140 135-145 [facility] [employer] WYWBO2209-45-43 10:22:00 Test Item Value Reference Range Interpretation Comments Potassium Lvl (test code = Potassium 3.8 3.5-5.1 Lvl) [facility]2017-02-06 10:22:00 Test Item Value Reference Range Interpretation Comments Chloride Lvl (test code = Chloride Lvl) 106 95-109 [facility]2017-02-06 10:22:00 Test Item Value Reference Range Interpretation Comments Bili Total (test code = Bili Total) 0.4 0.2-1.3 [facility]2017-02-06 10:22:00 Test Item Value Reference Range Interpretation Comments Alk Phos (test code = Alk Phos) 74 39-136 [facility]2017-02-06 10:22:00 Test Item Value Reference Range Interpretation Comments eGFR (test code = eGFR) 19 [facility]2017-02-06 10:22:00 Test Item Value Reference Range Interpretation Comments Total Protein (test code = Total 5.2 6.4-8.4 Protein) [facility]2017-02-06 10:22:00 Test Item Value Reference Range Interpretation Comments ALT (test code = ALT) 822 See_Comment [Auto mated message] The system which ge nerated this result transmit rohit reference range : <=65. The reference range was not used to interpr et this result as reji l/abnormal. [facility]2017-02-06 10:22:00 Test Item Value Reference Range Interpretation Comments AST (test code = AST) 205 See_Comment [Auto mated message] The system which ge nerated this result transmit rohit reference range : <=37. The reference range was not used to interpr et this result as reji l/abnormal. [facility]2017-02-06 10:22:00 Test Item Value Reference Range Interpretation Comments Albumin Lvl (test code = Albumin Lvl) 1.8 3.5-5.0 [facility]2017-02-06 10:22:00 Test Item Value Reference Range Interpretation Comments BUN (test code = BUN) 54 7-22 [facility]2017-02-06 10:22:00 Test Item Value Reference Range Interpretation Comments Glucose Lvl (test code = Glucose Lvl) 143 70-99 [facility]2017-02-06 10:22:00 Test Item Value Reference Range Interpretation Comments Creatinine Lvl (test code = Creatinine 3.11 0.50-1.40 Lvl) [facility]2017-02-06 10:22:00 Test Item Value Reference Range Interpretation Comments B/C Ratio (test code = B/C Ratio) 17 6-25 [facility]2017-02-06 10:22:00 Test Item Value Reference Range Interpretation Comments AGAP (test code = AGAP) 16.8 10.0-20.0 [facility]2017-02-06 10:22:00 Test Item Value Reference Range Interpretation Comments Globulin (test code = Globulin) 3.4 2.7-4.2 [facility]2017-02-06 10:22:00 Test Item Value Reference Range Interpretation Comments A/G Ratio (test code = A/G Ratio) 0.5 0.7-1.6 [facility]2017-02-06 10:22:00 Test Item Value Reference Range Interpretation Comments Magnesium Lvl (test code = Magnesium 2.0 1.8-2.4 Lvl) [facility]2017-02-06 10:22:00 Test Item Value Reference Range Interpretation Comments Phosphorus (test code = Phosphorus) 3.7 2.5-4.[address] [facility] CenterEkfmamcKHLMXKANOC6774-86-48 10:22:00 Test Item Value Reference Range Interpretation Comments RDW (test code = RDW) 17.7 11.5-14.[address] [facility] CenterVqcjczzNQILCJYPXW1317-34-42 10:22:00 Test Item Value Reference Range Interpretation Comments MCHC (test code = MCHC) 32.9 32.0-36.[address] [facility] CenterBendonvEXPELTHSTY0918-53-34 10:22:00 Test Item Value Reference Range Interpretation Comments Hct (test code = Hct) 25.4 36.0-48.[address] [facility] CenterTxealogGCEZSDYMNC2968-01-26 10:22:00 Test Item Value Reference Range Interpretation Comments MCH (test code = MCH) 26.4 pg 27.0-31.[address] [facility] CenterRgtmmkdHBQPCUKUGH6183-35-60 10:22:00 Test Item Value Reference Range Interpretation Comments MCV (test code = MCV) 80.3 80.0-98.[address] [facility] CenterYionwdnOVTATCURKF8145-37-99 10:22:00 Test Item Value Reference Range Interpretation Comments MPV (test code = MPV) 11.4 7.4-10.[address] [facility] CenterMfrplcgSWQITGFCJF2850-52-44 10:22:00 Test Item Value Reference Range Interpretation Comments Platelet (test code = Platelet) 74 133-[address] [facility] CenterEfoiihrMVZERPZXNR0855-41-11 10:22:00 Test Item Value Reference Range Interpretation Comments RBC (test code = RBC) 3.16 4.20-5.[address] [facility] CenterYkyujquIPUURUJJBJ7638-16-05 10:22:00 Test Item Value Reference Range Interpretation Comments WBC (test code = WBC) 5.3 3.7-10.[address] [facility] CenterPfuokuiKYSKCBADLA8278-39-89 10:22:00 Test Item Value Reference Range Interpretation Comments Hgb (test code = Hgb) 8.4 12.0-16.[address] [facility] CenterReevsiyCCXPBNJAFN8491-57-48 10:22:00 Test Item Value Reference Range Interpretation Comments Monocytes (test code = Monocytes) 14.5 2.0-12.[address] [facility] CenterDwivqbmKTBKKDVHVK0469-09-20 10:22:00 Test Item Value Reference Range Interpretation Comments Lymphocytes (test code = Lymphocytes) 29.8 20.0-40.[address] [facility] CenterStdirabLRVZQSIYKR9494-76-67 10:22:00 Test Item Value Reference Range Interpretation Comments Eosinophils # (test code 0.1 See_Comment [A utomated message] The = Eosinophils #) system whic h generated this result tra nsmitted reference range : <=0.5. The reference r leo was not used to int erpret this result as normal/abnormal . [facility] CenterDxqymgzCIAUROEUCN2579-16-35 10:22:00 Test Item Value Reference Range Interpretation Comments Monocytes # (test code 0.8 See_Comment [Aut omated message] The = Monocytes #) system which generated this result tra nsmitted reference range : <=0.8. The reference r leo was not used to int erpret this result as normal/abnormal . [facility] CenterFiafcwlGDACREHMJB3719-73-14 10:22:00 Test Item Value Reference Range Interpretation Comments Segs-Bands # (test code = Segs-Bands #) 2.9 1.5-8.[address] [facility] CenterEbyassiVUDDDTIZQV1231-91-12 10:22:00 Test Item Value Reference Range Interpretation Comments Lymphocytes # (test code = Lymphocytes 1.6 1.0-5.5 #) [facility] TempleJpjhvvsTDQLHIGDTN2052-93-95 10:22:00 Test Item Value Reference Range Interpretation Comments Basophils (test code = 0.4 See_Comment [Aut omated message] The Basophils) system which ge nerated this result tra nsmitted reference range : <=1.0. The reference r leo was not used to int erpret this result as normal/abnormal . [facility] CenterFinutpaDMRKSPFWYD2081-00-72 10:22:00 Test Item Value Reference Range Interpretation Comments Eosinophils (test code = 1.2 See_Comment [A utomated message] The Eosinophils) system which ge nerated this result tra nsmitted reference range : <=4.0. The reference r leo was not used to int erpret this result as normal/abnormal . [facility] HospitalDmxornlDBUDFQBLWK0408-41-30 10:22:00 Test Item Value Reference Range Interpretation Comments Segs (test code = Segs) 54.1 45.0-75.0 [facility] [facility] [id number] 10:22:00 Test Item Value Reference Range Interpretation Comments Hgb A1C (test code = Hgb A1C) 8.9 [facility] [id number] 17:40:00 Test Item Value Reference Range Interpretation Comments Total CK (test code = Total CK) 344 12-191 [facility] HospitalBkcryxzIVZHOZJSUF0313-38-79 17:40:00 Test Item Value Reference Range Interpretation Comments IVETTE (test code = IVETTE) Positive *ABN*(07/26/16 11:40 AM) [facility] HospitalUvzijxfJSZMSJOTWS5250-63-85 17:40:00 Test Item Value Reference Range Interpretation Comments CASHIER CHECKER Ab (test code = CASHIER CHECKER Ab) no gt [facility] HospitalXvldspnKQPBCJJBZQ9814-20-68 17:40:00 Test Item Value Reference Range Interpretation Comments Sm Ab (test code = Sm Ab) no [facility] HospitalHjoectwJKANLKPHDN8827-55-21 17:40:00 Test Item Value Reference Range Interpretation Comments IVETTE Interp (test code Pattern appears = IVETTE Interp) Nucleolar. [facility] HospitalNylisgvVFSWJOBTGU8658-15-38 17:40:00 Test Item Value Reference Range Interpretation Comments SS-B (La) Ab (test code = SS-B (La) Ab) no [facility] HospitalOwkkwqzKDHGBHAICA5272-94-52 17:40:00 Test Item Value Reference Range Interpretation Comments SS-A (Ro) Ab (test code = SS-A (Ro) Ab) no gt [facility] HospitalItvkgvmFWYEDBTFHW9416-56-34 17:40:00 Test Item Value Reference Range Interpretation Comments DNA Ab (DS) (test Negative (07/26/16 11:40 code = DNA Ab (DS)) AM) [facility] HospitalNxvtqcuUDSEHLEBHA0763-54-64 17:40:00 Test Item Value Reference Range Interpretation Comments IVETTE Titer (test code = 1:40 *ABN*(07/26/16 IVETTE Titer) 11:40 AM) [facility] HospitalannURINE [id number] 17:40:00 Test Item Value Reference Range Interpretation Comments U Sodium (test code = U Sodium) 21 [facility] TempleVseeekfCLVGWDQBRB2970-10-32 14:00:00 Test Item Value Reference Range Interpretation Comments INR (test code = INR) 1.11 0.85-1.17 [facility] HospitalOwyxiegQSUXYEWSVY9742-19-49 14:00:00 Test Item Value Reference Range Interpretation Comments PT (test code = PT) 14.5 s 12.0-14.7 [facility] HospitalRqzqgwzULNSVESKES0855-74-89 14:00:00 Test Item Value Reference Range Interpretation Comments Hep A IgM (test code Negative *NA*(07/26/16 = Hep A IgM) 8:00 AM) [facility] HospitalFvmxrosOAJEHMZGMQ5101-65-59 14:00:00 Test Item Value Reference Range Interpretation Comments Hep B Core IgM (test Negative *NA*(07/26/16 code = Hep B Core 8:00 AM) IgM) [facility] HospitalRalujslKKSBGCDYIG4084-84-79 14:00:00 Test Item Value Reference Range Interpretation Comments Hep C Ab (test code = Negative *NA*(07/26/16 Hep C Ab) 8:00 AM) [facility] HospitalWtrpoigFMZMQDMDUU5492-03-23 14:00:00 Test Item Value Reference Range Interpretation Comments Hep Bs Ag (test code Negative *NA*(07/26/16 = Hep Bs Ag) 8:00 AM) [facility] HospitalannCHEM [id number] 10:42:00 Test Item Value Reference Range Interpretation Comments B/C Ratio (test code = B/C Ratio) 17 6-25 [facility]2017-02-05 10:42:00 Test Item Value Reference Range Interpretation Comments ALT (test code = ALT) 1232 See_Comment [Auto mated message] The system which ge nerated this result transmit rohit reference range : <=65. The reference range was not used to interpr et this result as reji l/abnormal. [facility]2017-02-05 10:42:00 Test Item Value Reference Range Interpretation Comments A/G Ratio (test code = A/G Ratio) 0.5 0.7-1.6 [facility]2017-02-05 10:42:00 Test Item Value Reference Range Interpretation Comments Bili Total (test code = Bili Total) 0.3 0.2-1.3 [facility]2017-02-05 10:42:00 Test Item Value Reference Range Interpretation Comments Alk Phos (test code = Alk Phos) 79 39-136 [facility]2017-02-05 10:42:00 Test Item Value Reference Range Interpretation Comments AST (test code = AST) 586 See_Comment [Auto mated message] The system which ge nerated this result transmit rohit reference range : <=37. The reference range was not used to interpr et this result as reji l/abnormal. [facility]2017-02-05 10:42:00 Test Item Value Reference Range Interpretation Comments Total Protein (test code = Total 5.5 6.4-8.4 Protein) [facility]2017-02-05 10:42:00 Test Item Value Reference Range Interpretation Comments Globulin (test code = Globulin) 3.7 2.7-4.2 [facility]2017-02-05 10:42:00 Test Item Value Reference Range Interpretation Comments Albumin Lvl (test code = Albumin Lvl) 1.8 3.5-5.0 [facility]2017-02-05 10:42:00 Test Item Value Reference Range Interpretation Comments Magnesium Lvl (test code = Magnesium 2.1 1.8-2.4 Lvl) [facility] CenterVcctvboQTVQTNFFGO7363-82-26 10:42:00 Test Item Value Reference Range Interpretation Comments Acanthocyte (test code = Acanthocyte) Slight [facility] CenterAvuunatBVJVEMFYZL8891-85-90 10:42:00 Test Item Value Reference Range Interpretation Comments Rouleaux (test code = Present *ABN*(07/26/16 Rouleaux) 4:42 AM) [facility]YzzkxeuFILAQOYVMJ4367-13-57 10:42:00 Test Item Value Reference Range Interpretation Comments Anisocyte (test code = 1+ *ABN*(07/26/16 4:42 Anisocyte) AM) [facility] CenterHeeqqccFELCNQOYCF2557-95-56 10:42:00 Test Item Value Reference Range Interpretation Comments Basophils # (test code 0.1 See_Comment [Aut omated message] The = Basophils #) system which generated this result tra nsmitted reference range : <=0.2. The reference r leo was not used to int erpret this result as normal/abnormal . [facility] HospitalZkiighyXBAAMGULNR4661-38-34 10:42:00 Test Item Value Reference Range Interpretation Comments Large Plt (test code Moderate *ABN*(07/26/16 = Large Plt) 4:42 AM) [facility] Temp[id number] 10:42:00 Test Item Value Reference Range Interpretation Comments C4 Complement (test code = C4 42 16-47 Complement) [facility] AND [id number] 16:34:00 Test Item Value Reference Range Interpretation Comments UA Sq Epi (test code = UA Sq Epi) None Seen [facility] AND [id number] 16:34:00 Test Item Value Reference Range Interpretation Comments UA Waxy Cast (test code = UA Waxy Cast) 1 [facility] AND [id number] 16:34:00 Test Item Value Reference Range Interpretation Comments UA Hyal Cast (test 4 See_Comment [Automat ed message] The code = UA Hyal Cast) system which generated this result transmit rohit reference range : <=2. The reference range was not used to interpr et this result as reji l/abnormal. [facility] AND [id number] 16:34:00 Test Item Value Reference Range Interpretation Comments UA Bacteria (test code = UA Occasional /HPF Bacteria) [facility] AND [id number] 16:34:00 Test Item Value Reference Range Interpretation Comments UA Mucus (test code = UA Mucus) Few /LPF [facility] AND [id number] 16:34:00 Test Item Value Reference Range Interpretation Comments UA Amorph Destiny (test code = Occasional /HPF UA Amorph Destiny) [facility] AND [id number] 16:34:00 Test Item Value Reference Range Interpretation Comments UA Leuk Est (test Negative (07/25/16 10:34 code = UA Leuk Est) AM) [facility] AND [id number] 16:34:00 Test Item Value Reference Range Interpretation Comments UA Nitrite (test code Negative (07/25/16 10:34 = UA Nitrite) AM) [facility] AND [id number] 16:34:00 Test Item Value Reference Range Interpretation Comments UA RBC (test code = 2 See_Comment [Automa rohit message] The UA RBC) system which ge nerated this result transmit rohit reference range : <=2. The reference range was not used to interpr et this result as reji l/abnormal. [facility] AND [id number] 16:34:00 Test Item Value Reference Range Interpretation Comments UA WBC (test code = 6 See_Comment [Automa rohit message] The UA WBC) system which ge nerated this result transmit rohit reference range : <=5. The reference range was not used to interpr et this result as reji l/abnormal. [facility] AND [id number] 16:34:00 Test Item Value Reference Range Interpretation Comments UA Urobilinogen (test code = UA 2.0 0.1-1.0 Urobilinogen) [facility] AND [id number] 16:34:00 Test Item Value Reference Range Interpretation Comments UA Ketones (test code = UA Negative mg/dL Ketones) [facility] AND [id number] 16:34:00 Test Item Value Reference Range Interpretation Comments UA Glucose (test code = UA Glucose) 70 mg/dL [facility] AND [id number] 16:34:00 Test Item Value Reference Range Interpretation Comments UA Blood (test code = Negative (07/25/16 10:34 UA Blood) AM) [facility] AND [id number] 16:34:00 Test Item Value Reference Range Interpretation Comments UA Bili (test code = Negative *NA*(07/25/16 UA Bili) 10:34 AM) [facility] AND [id number] 16:34:00 Test Item Value Reference Range Interpretation Comments UA Protein (test code = UA >=300 mg/dL Protein) [facility] AND [id number] 16:34:00 Test Item Value Reference Range Interpretation Comments UA Spec Grav (test code = UA Spec Grav) 1.012 [facility] AND [id number] 16:34:00 Test Item Value Reference Range Interpretation Comments UA pH (test code = UA pH) 5.5 5.0-8.0 [facility] AND [id number] 16:34:00 Test Item Value Reference Range Interpretation Comments UA Turbidity (test code Slight *ABN*(07/25/16 = UA Turbidity) 10:34 AM) [facility] AND [id number] 16:34:00 Test Item Value Reference Range Interpretation Comments UA Color (test code = Dark Yellow *NA*(07/25/16 UA Color) 10:34 AM) [facility] AND [id number] 16:34:00 Test Item Value Reference Range Interpretation Comments UA Gran Cast (test code = UA Gran Cast) 9 [facility] [id number] 16:34:00 Test Item Value Reference Range Interpretation Comments U Sodium (test code = U Sodium) 30 [facility] [id number] 16:34:00 Test Item Value Reference Range Interpretation Comments U Prot/Creat (test code = U Prot/Creat) 3.1 [facility] [id number] 16:34:00 Test Item Value Reference Range Interpretation Comments U Protein (test code = U Protein) 420.9 [facility] [id number] 16:34:00 Test Item Value Reference Range Interpretation Comments U Creatinine (test code = U 136.00 Creatinine) [facility] [id number] 08:55:00 Test Item Value Reference Range Interpretation Comments Magnesium Lvl (test code = Magnesium 2.0 1.8-2.4 Lvl) [facility] [id number] 08:55:00 Test Item Value Reference Range Interpretation Comments Phosphorus (test code = Phosphorus) 5.2 2.5-4.5 [facility]annCARDIAC [id number] 17:29:00 Test Item Value Reference Range Interpretation Comments Troponin-I (test code 0.28 See_Comment [Auto mated message] The = Troponin-I) system which g enerated this result transmit rohit reference range : <=0.40. The reference r leo was not used to interpr et this result as reji l/abnormal. [facility] Hospit[email or web address] 17:29:00 Test Item Value Reference Range Interpretation Comments Total CK (test code = Total CK) 2616 12-191 [facility] TempleAllyAlign HealthR[facility] [id number] 17:29:00 Test Item Value Reference Range Interpretation Comments Troponin-T (test code 0.144 See_Comment [Auto mated message] The = Troponin-T) system which g enerated this result transmit rohit reference range : <=0.100. The reference r leo was not used to interpr et this result as reji l/abnormal. [facility] TempleKipu Systems [id number] 17:29:00 Test Item Value Reference Range Interpretation Comments CK MB Index (test 0.2 See_Comment [Automate d message] The code = CK MB Index) system w [facility] generated this result transmit rohit reference range : <=2.5. The reference range was not used to interpr et this result as reji l/abnormal. [facility] HospitalMineralRightsWorldwide.com2017-02-03 17:29:00 Test Item Value Reference Range Interpretation Comments CK MB (test code = CK MB) 6.3 0.5-3.6 [facility] TempleAllyAlign HealthR[facility] [id number] 11:20:00 Test Item Value Reference Range Interpretation Comments Troponin-I (test code 0.38 See_Comment [Auto mated message] The = Troponin-I) system which g enerated this result transmit rohit reference range : <=0.40. The reference r leo was not used to interpr et this result as reji l/abnormal. [facility] Hospit[email or web address] 11:20:00 Test Item Value Reference Range Interpretation Comments Troponin-T (test code 0.173 See_Comment [Auto mated message] The = Troponin-T) system which g enerated this result transmit rohit reference range : <=0.100. The reference r leo was not used to interpr et this result as reji l/abnormal. [facility] Hospit[email or web address] 11:20:00 Test Item Value Reference Range Interpretation Comments CK MB Index (test 0.2 See_Comment [Automate d message] The code = CK MB Index) system w [facility] generated this result transmit rohit reference range : <=2.5. The reference range was not used to interpr et this result as reji l/abnormal. [facility] [employer]2017-02-03 11:20:00 Test Item Value Reference Range Interpretation Comments CK MB (test code = CK MB) 5.6 0.5-3.6 [facility] [employer] [id number] 11:20:00 Test Item Value Reference Range Interpretation Comments Phosphorus (test code = Phosphorus) 5.5 2.5-4.5 [facility] [employer] [id number] 06:18:00 Test Item Value Reference Range Interpretation Comments BNP (test code = BNP) 701 [facility] Hospit[email or web address] 04:59:27 Test Item Value Reference Range Interpretation Comments Troponin-I (test code 0.57 See_Comment [Auto mated message] The = Troponin-I) system which g enerated this result transmit rohit reference range : <=0.40. The reference r leo was not used to interpr et this result as reji l/abnormal. [facility] [employer]2016-12-26 10:22:00 Test Item Value Reference Range Interpretation Comments BNP (test code = BNP) 526 [facility] Naytev2016-12-26 10:22:00 Test Item Value Reference Range Interpretation Comments Magnesium Lvl (test code = Magnesium 2.1 1.8-2.4 Lvl) [facility] Naytev2016-12-26 10:22:00 Test Item Value Reference Range Interpretation Comments Glucose Lvl (test code = Glucose Lvl) 117 70-99 [facility] Nay[employer]v2016-12-26 10:22:00 Test Item Value Reference Range Interpretation Comments BUN (test code = BUN) 41 7-22 [facility] Naytev2016-12-26 10:22:00 Test Item Value Reference Range Interpretation Comments Creatinine Lvl (test code = Creatinine 2.00 0.50-1.40 Lvl) [facility] Naytev2016-12-26 10:22:00 Test Item Value Reference Range Interpretation Comments Calcium Lvl (test code = Calcium Lvl) 9.0 8.5-10.5 [facility]2016-12-26 10:22:00 Test Item Value Reference Range Interpretation Comments Chloride Lvl (test code = Chloride Lvl) 102 95-109 [facility]2016-12-26 10:22:00 Test Item Value Reference Range Interpretation Comments CO2 (test code = CO2) 33 24-32 [facility]2016-12-26 10:22:00 Test Item Value Reference Range Interpretation Comments Sodium Lvl (test code = Sodium Lvl) 144 135-145 [facility]2016-12-26 10:22:00 Test Item Value Reference Range Interpretation Comments Potassium Lvl (test code = Potassium 4.0 3.5-5.1 Lvl) [facility]2016-12-26 10:22:00 Test Item Value Reference Range Interpretation Comments eGFR (test code = eGFR) 32 [facility]2016-12-26 10:22:00 Test Item Value Reference Range Interpretation Comments AGAP (test code = AGAP) 13.0 10.0-20.0 [facility]2016-12-26 10:22:00 Test Item Value Reference Range Interpretation Comments Phosphorus (test code = Phosphorus) 4.6 2.5-4.[address] [facility] CenterX[id number] 10:22:00 Test Item Value Reference Range Interpretation Comments RBC (test code = RBC) 3.68 4.20-5.[address] [facility] [id number] 10:22:00 Test Item Value Reference Range Interpretation Comments Hgb (test code = Hgb) 9.9 12.0-16.[address] [facility] CenterSqtdcsvZEIYXXDUCK6095-37-50 10:22:00 Test Item Value Reference Range Interpretation Comments MCH (test code = MCH) 26.8 pg 27.0-31.[address] [facility] [id number] 10:22:00 Test Item Value Reference Range Interpretation Comments MCHC (test code = MCHC) 34.2 32.0-36.[address] [facility] CenterMvnhnriUZKPGBEBJF6642-91-72 10:22:00 Test Item Value Reference Range Interpretation Comments MCV (test code = MCV) 78.3 80.0-98.[address] [facility] CenterExlrdwqOJHCVYRGJB4063-37-10 10:22:00 Test Item Value Reference Range Interpretation Comments Hct (test code = Hct) 28.8 36.0-48.[address] [facility] CenterWbszzwmZTOKDTUPWP9374-77-96 10:22:00 Test Item Value Reference Range Interpretation Comments Platelet (test code = Platelet) 191 133-[address] [facility] CenterFvowdsvXBPUPMFKKT7817-72-06 10:22:00 Test Item Value Reference Range Interpretation Comments MPV (test code = MPV) 9.5 7.4-10.[address] [facility] CenterOwxxgekTJOQVWSZOF6282-08-26 10:22:00 Test Item Value Reference Range Interpretation Comments RDW (test code = RDW) 15.3 11.5-14.[address] [facility] CenterSvlcudjBTTUCHSZBA6262-86-71 10:22:00 Test Item Value Reference Range Interpretation Comments WBC (test code = WBC) 5.6 3.7-10.[address] [facility] CenterNxkatvxZHQAFIZBSZ3945-86-01 10:22:00 Test Item Value Reference Range Interpretation Comments Eosinophils # (test code 0.5 See_Comment [A utomated message] The = Eosinophils #) system whic h generated this result tra nsmitted reference range : <=0.5. The reference r leo was not used to int erpret this result as normal/abnormal . [facility] CenterTjjfuxeDBLUWLQWVN5714-29-11 10:22:00 Test Item Value Reference Range Interpretation Comments Microcyte (test code = 1+ *ABN*(06/15/16 Microcyte) 4:22 AM) [facility] CenterFodnpwwBMTOBWINNL4464-24-67 10:22:00 Test Item Value Reference Range Interpretation Comments Basophils # (test code 0.1 See_Comment [Aut omated message] The = Basophils #) system which generated this result tra nsmitted reference range : <=0.2. The reference r leo was not used to int erpret this result as normal/abnormal . [facility] CenterWietbzeNCLBTKDXIA7288-64-85 10:22:00 Test Item Value Reference Range Interpretation Comments Lymphocytes (test code = Lymphocytes) 33.5 20.0-40.[address] [facility] CenterBkyxuwxGQYVSMBIDA9376-00-09 10:22:00 Test Item Value Reference Range Interpretation Comments Segs (test code = Segs) 47.6 45.0-75.[address] [facility] CenterOrzrellWWUBHENLDY3561-20-43 10:22:00 Test Item Value Reference Range Interpretation Comments Monocytes (test code = Monocytes) 8.4 2.0-12.[address] [facility] CenterRxucuniVVVNBQCSZC4086-03-96 10:22:00 Test Item Value Reference Range Interpretation Comments Eosinophils (test code = 9.4 See_Comment [A utomated message] The Eosinophils) system which ge nerated this result tra nsmitted reference range : <=4.0. The reference r leo was not used to int erpret this result as normal/abnormal . [facility] CenterFsoewuaBZSOWERKFU4370-33-27 10:22:00 Test Item Value Reference Range Interpretation Comments Segs-Bands # (test code = Segs-Bands #) 2.6 1.5-8.[address] [facility] CenterAqardzrLZYPSCZRMJ9172-36-42 10:22:00 Test Item Value Reference Range Interpretation Comments Lymphocytes # (test code = Lymphocytes 1.9 1.0-5.5 #) [facility] CenterHgecvtnUWRZUJVTWH6777-10-73 10:22:00 Test Item Value Reference Range Interpretation Comments Basophils (test code = 1.1 See_Comment [Aut omated message] The Basophils) system which ge nerated this result tra nsmitted reference range : <=1.0. The reference r leo was not used to int erpret this result as normal/abnormal . [facility] CenterVqpjrbyYAVPLYTRVI9736-86-74 10:22:00 Test Item Value Reference Range Interpretation Comments Monocytes # (test code 0.5 See_Comment [Aut omated message] The = Monocytes #) system which generated this result tra nsmitted reference range : <=0.8. The reference r leo was not used to int erpret this result as normal/abnormal . [facility]2016-12-25 11:03:00 Test Item Value Reference Range Interpretation Comments Phosphorus (test code = Phosphorus) 4.8 2.5-4.5 [facility]2016-12-25 11:03:00 Test Item Value Reference Range Interpretation Comments Magnesium Lvl (test code = Magnesium 2.0 1.8-2.4 Lvl) [facility]2016-12-25 11:03:00 Test Item Value Reference Range Interpretation Comments eGFR (test code = eGFR) 32 [facility]2016-12-25 11:03:00 Test Item Value Reference Range Interpretation Comments Chloride Lvl (test code = Chloride Lvl) 101 95-109 [facility]2016-12-25 11:03:00 Test Item Value Reference Range Interpretation Comments Potassium Lvl (test code = Potassium 4.4 3.5-5.1 Lvl) [facility]2016-12-25 11:03:00 Test Item Value Reference Range Interpretation Comments BUN (test code = BUN) 37 7-22 [facility]2016-12-25 11:03:00 Test Item Value Reference Range Interpretation Comments Glucose Lvl (test code = Glucose Lvl) 119 70-99 [facility]2016-12-25 11:03:00 Test Item Value Reference Range Interpretation Comments Creatinine Lvl (test code = Creatinine 2.00 0.50-1.40 Lvl) [facility]2016-12-25 11:03:00 Test Item Value Reference Range Interpretation Comments Sodium Lvl (test code = Sodium Lvl) 142 135-145 [facility]2016-12-25 11:03:00 Test Item Value Reference Range Interpretation Comments Calcium Lvl (test code = Calcium Lvl) 8.7 8.5-10.5 [facility]2016-12-25 11:03:00 Test Item Value Reference Range Interpretation Comments CO2 (test code = CO2) 32 24-32 [facility]2016-12-25 11:03:00 Test Item Value Reference Range Interpretation Comments AGAP (test code = AGAP) 13.4 10.0-20.[address] [facility] CenterNselizsASQAMZHXVD7712-97-92 11:03:00 Test Item Value Reference Range Interpretation Comments Eosinophils (test code = 10.3 See_Comment [A utomated message] The Eosinophils) system which ge nerated this result tra nsmitted reference range : <=4.0. The reference r leo was not used to int erpret this result as normal/abnormal . [place] [id number] 11:03:00 Test Item Value Reference Range Interpretation Comments Basophils # (test code 0.1 See_Comment [Aut omated message] The = Basophils #) system which generated this result tra nsmitted reference range : <=0.2. The reference r leo was not used to int erpret this result as normal/abnormal . [place] [id number] 11:03:00 Test Item Value Reference Range Interpretation Comments Eosinophils # (test code 0.5 See_Comment [A utomated message] The = Eosinophils #) system whic h generated this result tra nsmitted reference range : <=0.5. The reference r leo was not used to int erpret this result as normal/abnormal . [facility] CenterPosnxtqXMMGMLNHUI6323-79-37 11:03:00 Test Item Value Reference Range Interpretation Comments Monocytes # (test code 0.5 See_Comment [Aut omated message] The = Monocytes #) system which generated this result tra nsmitted reference range : <=0.8. The reference r leo was not used to int erpret this result as normal/abnormal . [facility] CenterNjlrvrjDDFQSIAWNO7873-30-47 11:03:00 Test Item Value Reference Range Interpretation Comments Segs-Bands # (test code = Segs-Bands #) 2.1 1.5-8.[address] [facility] CenterTuczupiUETVWEQUYX5495-51-17 11:03:00 Test Item Value Reference Range Interpretation Comments Basophils (test code = 1.2 See_Comment [Aut omated message] The Basophils) system which ge nerated this result tra nsmitted reference range : <=1.0. The reference r leo was not used to int erpret this result as normal/abnormal . [facility] CenterAipslhqNRVHGPCYUL8999-70-87 11:03:00 Test Item Value Reference Range Interpretation Comments Lymphocytes # (test code = Lymphocytes 1.9 1.0-5.5 #) [facility] CenterAuoocxfLQKMOKFFOW0442-62-59 11:03:00 Test Item Value Reference Range Interpretation Comments Segs (test code = Segs) 42.5 45.0-75.[address] [facility] CenterRmurkqnTVECOQBCWP6298-21-89 11:03:00 Test Item Value Reference Range Interpretation Comments Lymphocytes (test code = Lymphocytes) 37.0 20.0-40.[address] [facility] CenterCcpqrakSRBFCIZUBR3818-38-52 11:03:00 Test Item Value Reference Range Interpretation Comments Monocytes (test code = Monocytes) 9.0 2.0-12.[address] [facility] CenterJygjygiHHIJKQMKKV8517-19-00 11:03:00 Test Item Value Reference Range Interpretation Comments MPV (test code = MPV) 9.8 7.4-10.[address] CenterHnvbvphZHYNAFBZNH7680-61-92 11:03:00 Test Item Value Reference Range Interpretation Comments WBC (test code = WBC) 5.0 3.7-10.[address] CenterZdcopvnHRDBNPHZBF3261-30-27 11:03:00 Test Item Value Reference Range Interpretation Comments RBC (test code = RBC) 3.57 4.20-5.[address] [facility] CenterCnkxrtnJZIJMOZGKW4968-59-95 11:03:00 Test Item Value Reference Range Interpretation Comments Hgb (test code = Hgb) 9.4 12.0-16.[address] [facility] CenterJftvqcpVIVFTHWZEL5970-34-52 11:03:00 Test Item Value Reference Range Interpretation Comments Hct (test code = Hct) 28.5 36.0-48.[address] CenterGmwcrvpYXRBWUXFOL3013-38-53 11:03:00 Test Item Value Reference Range Interpretation Comments Platelet (test code = Platelet) 183 133-[address] [facility] CenterGgyqijfXKZXZROXOU0842-78-24 11:03:00 Test Item Value Reference Range Interpretation Comments MCV (test code = MCV) 79.9 80.0-98.[address] CenterFhaszenGBYAZEPRXC4210-80-95 11:03:00 Test Item Value Reference Range Interpretation Comments MCH (test code = MCH) 26.3 pg 27.0-31.[address] CenterWutsmerQSEUKDEWKG2311-81-51 11:03:00 Test Item Value Reference Range Interpretation Comments MCHC (test code = MCHC) 33.0 32.0-36.[address] CenterHuzpwoqXWMYATSIFF4599-04-55 11:03:00 Test Item Value Reference Range Interpretation Comments RDW (test code = RDW) 15.9 11.5-14.5 [facility]2016-12-24 10:26:00 Test Item Value Reference Range Interpretation Comments U Prot/Creat (test code = U Prot/Creat) 6.9 [facility]2016-12-24 10:26:00 Test Item Value Reference Range Interpretation Comments U Creatinine (test code = U Creatinine) 19.30 [facility]2016-12-24 10:26:00 Test Item Value Reference Range Interpretation Comments U Protein (test code = U Protein) 133.[address] CenterNqpgzygRWRKDCEBGI2388-43-65 09:20:00 Test Item Value Reference Range Interpretation Comments MPV (test code = MPV) 9.7 7.4-10.[address] [facility] CenterHhqseoyNEFLMKPASP1215-20-33 09:20:00 Test Item Value Reference Range Interpretation Comments Platelet (test code = Platelet) 184 133-[address] [facility] CenterQapzbdjHIWNSRSEID8635-80-42 09:20:00 Test Item Value Reference Range Interpretation Comments RDW (test code = RDW) 15.9 11.5-14.[address] [facility] CenterNjfxkxzCOYFHMGZFN2219-50-83 09:20:00 Test Item Value Reference Range Interpretation Comments MCV (test code = MCV) 79.3 80.0-98.[address] CenterHjanpwyHGUMVHJRAK4707-60-77 09:20:00 Test Item Value Reference Range Interpretation Comments MCHC (test code = MCHC) 33.0 32.0-36.[address] [facility] CenterRjqtbwjCUXLULEQSY2908-58-72 09:20:00 Test Item Value Reference Range Interpretation Comments MCH (test code = MCH) 26.2 pg 27.0-31.[address] CenterBnzlsreQGESOMPPZJ6826-78-86 09:20:00 Test Item Value Reference Range Interpretation Comments Hct (test code = Hct) 29.4 36.0-48.[address] [facility] CenterTrbfrziQLNOVPJBOY9166-24-86 09:20:00 Test Item Value Reference Range Interpretation Comments Hgb (test code = Hgb) 9.7 12.0-16.[address] [facility] CenterVwhbepaNNMHGHLLDX8747-48-14 09:20:00 Test Item Value Reference Range Interpretation Comments RBC (test code = RBC) 3.70 4.20-5.[address] CenterSmqjvegRXCJECNAEY6068-43-10 09:20:00 Test Item Value Reference Range Interpretation Comments WBC (test code = WBC) 5.7 3.7-10.[address] CenterQfgkdfeATBTTPOGBF2755-90-25 09:20:00 Test Item Value Reference Range Interpretation Comments Basophils # (test code 0.1 See_Comment [Aut omated message] The = Basophils #) system which generated this result tra nsmitted reference range : <=0.2. The reference r leo was not used to int erpret this result as normal/abnormal . [facility] CenterMvrobpmTLYCNQHGDO1205-49-28 09:20:00 Test Item Value Reference Range Interpretation Comments Lymphocytes # (test code = Lymphocytes 2.2 1.0-5.5 #) [facility] CenterCnrskkxCUCMCXGKRL2496-50-42 09:20:00 Test Item Value Reference Range Interpretation Comments Eosinophils # (test code 0.5 See_Comment [A utomated message] The = Eosinophils #) system whic h generated this result tra nsmitted reference range : <=0.5. The reference r leo was not used to int erpret this result as normal/abnormal . [facility] CenterWocdudmAZBBGHBXIE1223-25-23 09:20:00 Test Item Value Reference Range Interpretation Comments Monocytes # (test code 0.5 See_Comment [Aut omated message] The = Monocytes #) system which generated this result tra nsmitted reference range : <=0.8. The reference r leo was not used to int erpret this result as normal/abnormal . [facility] CenterOowwbumBDVABQZUHP2771-52-69 09:20:00 Test Item Value Reference Range Interpretation Comments Basophils (test code = 1.1 See_Comment [Aut omated message] The Basophils) system which ge nerated this result tra nsmitted reference range : <=1.0. The reference r leo was not used to int erpret this result as normal/abnormal . [facility] CenterWankntdPYEVNUQVHC7299-73-16 09:20:00 Test Item Value Reference Range Interpretation Comments Segs-Bands # (test code = Segs-Bands #) 2.3 1.5-8.[address] CenterKyiaebnOOBUKVPFBY7124-80-66 09:20:00 Test Item Value Reference Range Interpretation Comments Eosinophils (test code = 9.5 See_Comment [A utomated message] The Eosinophils) system which ge nerated this result tra nsmitted reference range : <=4.0. The reference r leo was not used to int erpret this result as normal/abnormal . [facility] CenterRzufrkrTFHESZWWEU7460-11-30 09:20:00 Test Item Value Reference Range Interpretation Comments Monocytes (test code = Monocytes) 9.0 2.0-12.[address] CenterKkopdesHGUZEQNQCC8611-49-15 09:20:00 Test Item Value Reference Range Interpretation Comments Lymphocytes (test code = Lymphocytes) 38.9 20.0-40.[address] CenterYteshvnBTRDFDFZMX2366-73-78 09:20:00 Test Item Value Reference Range Interpretation Comments Segs (test code = Segs) 41.5 45.0-75.0 [facility]2016-12-24 06:34:00 Test Item Value Reference Range Interpretation Comments Magnesium Lvl (test code = Magnesium 1.7 1.8-2.4 Lvl) [facility] [id number] 06:34:00 Test Item Value Reference Range Interpretation Comments Phosphorus (test code = Phosphorus) 4.2 2.5-4.[address] [facility]XudrdtjHMEZDUUUZYTK7101-43-53 06:34:00 Test Item Value Reference Range Interpretation Comments AGAP (test code = AGAP) 14.3 10.0-20.[address] [facility] HospitalOxqfsjaLRRDOXQTRQSK8549-66-44 06:34:00 Test Item Value Reference Range Interpretation Comments eGFR (test code = eGFR) [address] [facility] HospitalSgdncvjZFZOZAEXREMB7835-39-35 06:34:00 Test Item Value Reference Range Interpretation Comments Chloride Lvl (test code = Chloride Lvl) 103 95-[address] [facility] HospitalVqtovkiLQYBHFDVENKX6324-64-70 06:34:00 Test Item Value Reference Range Interpretation Comments Calcium Lvl (test code = Calcium Lvl) 8.5 8.5-10.[address] [facility] HospitalLgpxfmpDAWUUIUQAUFG9920-11-95 06:34:00 Test Item Value Reference Range Interpretation Comments CO2 (test code = CO2) 32 24-[address] [facility] HospitalHbnofwxGNQPLPMBRBHW3762-84-07 06:34:00 Test Item Value Reference Range Interpretation Comments Glucose Lvl (test code = Glucose Lvl) 173 70-[address] [facility] HospitalUkmepgaRNCYZWMBKLYE3652-93-31 06:34:00 Test Item Value Reference Range Interpretation Comments BUN (test code = BUN) 37 7-[address] [facility] HospitalHvcpqxhHPJYXLHDANJD5898-67-82 06:34:00 Test Item Value Reference Range Interpretation Comments Creatinine Lvl (test code = Creatinine 1.63 0.50-1.40 Lvl) [facility] HospitalDrrojhtXLVHIUPLQGMN0574-74-70 06:34:00 Test Item Value Reference Range Interpretation Comments Potassium Lvl (test code = Potassium 4.3 3.5-5.1 Lvl) [facility] HospitalBzxbedpTJEMMUHHLDTB4521-89-66 06:34:00 Test Item Value Reference Range Interpretation Comments Sodium Lvl (test code = Sodium Lvl) 145 135-145 [facility] HPMDS4428-60-68 16:21:00 Test Item Value Reference Range Interpretation Comments Ammonia (test code = Ammonia) 48.0 [facility] TempleTzxjcgwPDXANGGPCK0219-94-08 14:56:00 Test Item Value Reference Range Interpretation Comments IVETTE Interp (test code Pattern appears = IVETTE Interp) Nucleolar. [facility] TempleDmjqoklCSROQNLYVX7346-52-30 14:56:00 Test Item Value Reference Range Interpretation Comments IVETTE Titer (test code = 1:40 *ABN*(06/11/16 IVETTE Titer) 8:56 AM) [facility] TempleFgxedrmUNCPLMCSYY7407-39-15 14:56:00 Test Item Value Reference Range Interpretation Comments Hep Bs Ag (test code Negative *NA*(06/11/16 = Hep Bs Ag) 8:56 AM) [facility] TempleCnnrttmBPMJSAKWLH0723-22-75 14:56:00 Test Item Value Reference Range Interpretation Comments Hep C Ab (test code = Negative *NA*(06/11/16 Hep C Ab) 8:56 AM) [facility] TempleQqnxpvqOUIJHPHDLF4790-71-28 14:56:00 Test Item Value Reference Range Interpretation Comments Hep B Core IgM (test Negative *NA*(06/11/16 code = Hep B Core 8:56 AM) IgM) [facility] TempleQvdhyenWWYGCZMTJG6470-19-21 14:56:00 Test Item Value Reference Range Interpretation Comments Hep A IgM (test code Negative *NA*(06/11/16 = Hep A IgM) 8:56 AM) [facility] TempleDswoxioRULZPGYSUK3468-17-28 14:56:00 Test Item Value Reference Range Interpretation Comments HIV Ag/Ab 4th Gen Negative *NA*(06/11/16 (test code = HIV 8:56 AM) Ag/Ab 4th Gen) [facility] TempleJstknfdSTWLMGCTNX2297-03-11 14:56:00 Test Item Value Reference Range Interpretation Comments IVETTE (test code = IVETTE) Positive *ABN*(06/11/16 8:56 AM) [facility] [id number] 10:42:00 Test Item Value Reference Range Interpretation Comments Bili Total (test code = Bili Total) 0.1 0.2-1.3 [facility] WAPTW9525-77-77 10:42:00 Test Item Value Reference Range Interpretation Comments Total Protein (test code = Total 5.2 6.4-8.4 Protein) [facility] [id number] 10:42:00 Test Item Value Reference Range Interpretation Comments Albumin Lvl (test code = Albumin Lvl) 1.6 3.5-5.0 [facility] [id number] 10:42:00 Test Item Value Reference Range Interpretation Comments B/C Ratio (test code = B/C Ratio) 20 6-25 [facility] [id number] 10:42:00 Test Item Value Reference Range Interpretation Comments Globulin (test code = Globulin) 3.6 2.7-4.2 [facility] [id number] 10:42:00 Test Item Value Reference Range Interpretation Comments A/G Ratio (test code = A/G Ratio) 0.4 0.7-1.6 [facility] RNJWC8876-75-71 10:42:00 Test Item Value Reference Range Interpretation Comments Alk Phos (test code = Alk Phos) 74 39-136 [facility] [id number] 10:42:00 Test Item Value Reference Range Interpretation Comments ALT (test code = ALT) 14 See_Comment [Auto mated message] The system which ge nerated this result transmit rohit reference range : <=65. The reference range was not used to interpr et this result as reji l/abnormal. [facility] [id number] 10:42:00 Test Item Value Reference Range Interpretation Comments AST (test code = AST) 13 See_Comment [Auto mated message] The system which ge nerated this result transmit rohit reference range : <=37. The reference range was not used to interpr et this result as reji l/abnormal. [facility] TempleNykisvwRLWOPCYOEC1604-14-93 10:42:00 Test Item Value Reference Range Interpretation Comments INR (test code = INR) 1.06 0.85-1.17 [facility] TempleAnxcszhNGVDPMKYXR1304-90-59 10:42:00 Test Item Value Reference Range Interpretation Comments PT (test code = PT) 14.0 s 12.0-14.7 [facility] TempleAmfgjzoVALWZAUVPM7253-95-17 10:42:00 Test Item Value Reference Range Interpretation Comments PTT (test code = PTT) 36.4 s 22.9-35.8 [facility] TempleSPECIAL MYZDJALUX8668-61-10 10:42:00 Test Item Value Reference Range Interpretation Comments Hgb A1C (test code = Hgb A1C) 10.5 [facility]annCARDIAC RGZKLUD9953-34-04 02:08:00 Test Item Value Reference Range Interpretation Comments CK MB Index (test 1.8 See_Comment [Automate d message] The code = CK MB Index) system w [facility] generated this result transmit rohit reference range : <=2.5. The reference range was not used to interpr et this result as reji l/abnormal. [facility] [employer]2016-12-22 02:08:00 Test Item Value Reference Range Interpretation Comments CK MB (test code = CK MB) 2.9 0.5-3.6 [facility] HospitalWiN MS OXLXQCY2315-41-69 02:08:00 Test Item Value Reference Range Interpretation Comments Troponin-T (test code 0.061 See_Comment [Auto mated message] The = Troponin-T) system which g enerated this result transmit rohit reference range : <=0.100. The reference r leo was not used to interpr et this result as reji l/abnormal. [facility] HospitalWiN MS FZITYXO8915-49-40 02:08:00 Test Item Value Reference Range Interpretation Comments Total CK (test code = Total CK) 159 12-191 [facility] HospitalWiN MS [id number] 02:08:00 Test Item Value Reference Range Interpretation Comments Troponin-I (test code no gt See_Comment [Auto mated message] The = Troponin-I) system which g enerated this result transmit rohit reference range : <=0.40. The reference r leo was not used to interpr et this result as reji l/abnormal. [facility] Naytev2016-12-22 02:08:00 Test Item Value Reference Range Interpretation Comments Bili Total (test code = Bili Total) 0.2 0.2-1.3 [facility] Naytev2016-12-22 02:08:00 Test Item Value Reference Range Interpretation Comments Bili Direct (test code 0.1 See_Comment [Aut omated message] The = Bili Direct) system which generated this result tra nsmitted reference range : <=0.3. The reference r leo was not used to int erpret this result as reji l/abnormal. [facility] Naytev2016-12-22 02:08:00 Test Item Value Reference Range Interpretation Comments Bili Indirect (test 0.1 See_Comment [Automa rohit message] The code = Bili Indirect) system which generated this result tra nsmitted reference range : <=1.0. The reference r leo was not used to int erpret this result as normal/abnormal . [facility] Hospital[facility] [id number] 02:08:00 Test Item Value Reference Range Interpretation Comments Total Protein (test code = Total 5.7 6.4-8.4 Protein) [facility]2016-12-22 02:08:00 Test Item Value Reference Range Interpretation Comments A/G Ratio (test code = A/G Ratio) 0.5 0.7-1.6 [facility] [id number] 02:08:00 Test Item Value Reference Range Interpretation Comments Albumin Lvl (test code = Albumin Lvl) 1.8 3.5-5.0 [facility] [id number] 02:08:00 Test Item Value Reference Range Interpretation Comments Globulin (test code = Globulin) 3.9 2.7-4.2 [facility] [id number] 02:08:00 Test Item Value Reference Range Interpretation Comments Alk Phos (test code = Alk Phos) 99 39-136 [facility] [id number] 02:08:00 Test Item Value Reference Range Interpretation Comments AST (test code = AST) 21 See_Comment [Auto mated message] The system which ge nerated this result transmit rohit reference range : <=37. The reference range was not used to interpr et this result as reji l/abnormal. [facility] [id number] 02:08:00 Test Item Value Reference Range Interpretation Comments ALT (test code = ALT) 17 See_Comment [Auto mated message] The system which ge nerated this result transmit rohit reference range : <=65. The reference range was not used to interpr et this result as reji l/abnormal. [facility]Pic[facility] [id number] 02:08:00 Test Item Value Reference Range Interpretation Comments UDS Note (test code = See Note *NA*(06/10/16 UDS Note) 8:08 PM) [facility] [id number] 02:08:00 Test Item Value Reference Range Interpretation Comments U Propoxyph Scr (test Negative *NA*(06/10/16 code = U Propoxyph Scr) 8:08 PM) [facility] [id number] 02:08:00 Test Item Value Reference Range Interpretation Comments U Opiate Scr (test Negative *NA*(06/10/16 code = U Opiate Scr) 8:08 PM) [facility] [id number] 02:08:00 Test Item Value Reference Range Interpretation Comments U Methadone Scr (test Negative *NA*(06/10/16 code = U Methadone Scr) 8:08 PM) [facility] [id number] 02:08:00 Test Item Value Reference Range Interpretation Comments U Phencyc Scr (test Negative *NA*(06/10/16 code = U Phencyc Scr) 8:08 PM) [facility] [id number] 02:08:00 Test Item Value Reference Range Interpretation Comments U Cannab Scr (test Negative *NA*(06/10/16 code = U Cannab Scr) 8:08 PM) [facility] [id number] 02:08:00 Test Item Value Reference Range Interpretation Comments U Amph Scr (test code Negative *NA*(06/10/16 = U Amph Scr) 8:08 PM) [facility] [id number] 02:08:00 Test Item Value Reference Range Interpretation Comments U Kelly Scr (test code Negative *NA*(06/10/16 = U Kelly Scr) 8:08 PM) [facility] [id number] 02:08:00 Test Item Value Reference Range Interpretation Comments U Benzodia Scr (test Negative *NA*(06/10/16 code = U Benzodia Scr) 8:08 PM) [facility] [id number] 02:08:00 Test Item Value Reference Range Interpretation Comments U Cocaine Scr (test Negative *NA*(06/10/16 code = U Cocaine Scr) 8:08 PM) [facility] CjwwjheCHXVOH0239-48-52 02:08:00 Test Item Value Reference Range Interpretation Comments LDL (Calculated) (test code = LDL 75 (Calculated)) [facility] WljnjedDYRKOX7353-60-80 02:08:00 Test Item Value Reference Range Interpretation Comments VLDL (test code = VLDL) 27 [facility] YjqrujaBPCAMV3373-47-37 02:08:00 Test Item Value Reference Range Interpretation Comments Chol (test code = Chol) 133 [facility] IciwisuUSBRCQ5071-47-61 02:08:00 Test Item Value Reference Range Interpretation Comments Trig (test code = Trig) 133 [facility] TempleLsiyebkEBEXQS1401-91-25 02:08:00 Test Item Value Reference Range Interpretation Comments CHD Risk (test code = CHD Risk) 4.29 3.90-5.80 [facility] TempleUhzvvtyCYPLDA7283-50-54 02:08:00 Test Item Value Reference Range Interpretation Comments HDL (test code = HDL) 31 [facility] AND [id number] 02:08:00 Test Item Value Reference Range Interpretation Comments UA Urobilinogen (test code = UA <=1.0 mg/dL 0.1-1.0 Urobilinogen) [facility] AND [id number] 02:08:00 Test Item Value Reference Range Interpretation Comments UA Ketones (test code = UA Negative mg/dL Ketones) [facility] AND [id number] 02:08:00 Test Item Value Reference Range Interpretation Comments UA Glucose (test code = UA Glucose) 300 mg/dL [facility] AND [id number] 02:08:00 Test Item Value Reference Range Interpretation Comments UA Protein (test code = UA >=300 mg/dL Protein) [facility] AND [id number] 02:08:00 Test Item Value Reference Range Interpretation Comments UA pH (test code = UA pH) 6.0 5.0-8.0 [facility] AND [id number] 02:08:00 Test Item Value Reference Range Interpretation Comments UA Nitrite (test code Negative (06/10/16 8:08 = UA Nitrite) PM) [facility] AND [id number] 02:08:00 Test Item Value Reference Range Interpretation Comments UA Blood (test code = Trace *ABN*(06/10/16 UA Blood) 8:08 PM) [facility] AND [id number] 02:08:00 Test Item Value Reference Range Interpretation Comments UA Bili (test code = Negative *NA*(06/10/16 UA Bili) 8:08 PM) [facility] AND [id number] 02:08:00 Test Item Value Reference Range Interpretation Comments UA Mucus (test code = UA Mucus) Few /LPF [facility] AND [id number] 02:08:00 Test Item Value Reference Range Interpretation Comments UA RBC (test code = 4 See_Comment [Automa rohit message] The UA RBC) system which ge nerated this result transmit rohit reference range : <=2. The reference range was not used to interpr et this result as reji l/abnormal. [facility] AND [id number] 02:08:00 Test Item Value Reference Range Interpretation Comments UA Sq Epi (test code = UA Sq Epi) Few /LPF [facility] AND [id number] 02:08:00 Test Item Value Reference Range Interpretation Comments UA WBC (test code = 5 See_Comment [Automa rohit message] The UA WBC) system which ge nerated this result transmit rohit reference range : <=5. The reference range was not used to interpr et this result as reji l/abnormal. [facility] AND [id number] 02:08:00 Test Item Value Reference Range Interpretation Comments UA Leuk Est (test code Small *ABN*(06/10/16 = UA Leuk Est) 8:08 PM) [facility] AND [id number] 02:08:00 Test Item Value Reference Range Interpretation Comments UA Hyal Cast (test 1 See_Comment [Automat ed message] The code = UA Hyal Cast) system which generated this result transmit rohit reference range : <=2. The reference range was not used to interpr et this result as reji l/abnormal. [facility] AND [id number] 02:08:00 Test Item Value Reference Range Interpretation Comments UA Spec Grav (test code = UA Spec Grav) 1.009 [facility] AND [id number] 02:08:00 Test Item Value Reference Range Interpretation Comments UA Color (test code = Yellow *NA*(06/10/16 UA Color) 8:08 PM) [facility] AND [id number] 02:08:00 Test Item Value Reference Range Interpretation Comments UA Turbidity (test code = Clear (06/10/16 8:08 UA Turbidity) PM) [facility]2016-12-22 02:08:00 Test Item Value Reference Range Interpretation Comments U Preg (test code = U Negative (06/10/16 8:08 Preg) PM) [facility]2016-12-22 02:08:00 Test Item Value Reference Range Interpretation Comments U Protein (test code = U Protein) 375.4 [facility] [id number] 02:08:00 Test Item Value Reference Range Interpretation Comments U Prot/Creat (test code = U Prot/Creat) 5.4 [facility] [id number] 02:08:00 Test Item Value Reference Range Interpretation Comments U Creatinine (test code = U Creatinine) 69.80 [facility] [id number] 16:53:00 Test Item Value Reference Range Interpretation Comments BNP (test code = BNP) 1135 [facility] [id number] 16:53:00 Test Item Value Reference Range Interpretation Comments Troponin-I (test code no gt See_Comment [Auto mated message] The = Troponin-I) system which g enerated this result transmit rohit reference range : <=0.40. The reference r leo was not used to interpr et this result as reji l/abnormal. [facility] [id number] 13:02:00 Test Item Value Reference Range Interpretation Comments Lactic Acid WB (test code = Lactic Acid 0.9 0.5-2.2 WB) [facility] TempleByggkziLYUAMWNTOG8757-96-44 12:29:44 Test Item Value Reference Range Interpretation Comments Valproic Acid Lvl (test code = Valproic 10 50-100 Acid Lvl) [facility] TempleMnqfokiXAZOYQJFXZWZV9453-55-20 11:21:27 Test Item Value Reference Range Interpretation Comments hCG Tot (test code = hCG Tot) 1 [facility] [id number] 11:21:00 Test Item Value Reference Range Interpretation Comments Albumin Lvl (test code = Albumin Lvl) 3.2 3.5-5.0 [facility] [id number] 11:21:00 Test Item Value Reference Range Interpretation Comments Total Protein (test code = Total 6.6 6.4-8.4 Protein) [facility] [id number] 11:21:00 Test Item Value Reference Range Interpretation Comments Bili Total (test code = Bili Total) 0.6 0.2-1.3 [facility] [id number] 11:21:00 Test Item Value Reference Range Interpretation Comments Alk Phos (test code = Alk Phos) 59 39-136 [facility]2015-01-06 11:21:00 Test Item Value Reference Range Interpretation Comments AST (test code = AST) 11 See_Comment [Auto mated message] The system which ge nerated this result transmit rohit reference range : <=37. The reference range was not used to interpr et this result as reji l/abnormal. [facility]2015-01-06 11:21:00 Test Item Value Reference Range Interpretation Comments ALT (test code = ALT) 17 See_Comment [Auto mated message] The system which ge nerated this result transmit rohit reference range : <=65. The reference range was not used to interpr et this result as reji l/abnormal. [facility]2015-01-06 11:21:00 Test Item Value Reference Range Interpretation Comments eGFR (test code = eGFR) 99 [facility]2015-01-06 11:21:00 Test Item Value Reference Range Interpretation Comments Glucose Lvl (test code = Glucose Lvl) 314 70-99 [facility]2015-01-06 11:21:00 Test Item Value Reference Range Interpretation Comments Potassium Lvl (test code = Potassium 3.4 3.5-5.1 Lvl) [facility]2015-01-06 11:21:00 Test Item Value Reference Range Interpretation Comments BUN (test code = BUN) 11 7-22 [facility]2015-01-06 11:21:00 Test Item Value Reference Range Interpretation Comments Creatinine Lvl (test code = Creatinine 0.8 0.5-1.4 Lvl) [facility]2015-01-06 11:21:00 Test Item Value Reference Range Interpretation Comments Sodium Lvl (test code = Sodium Lvl) 134 135-145 [facility]2015-01-06 11:21:00 Test Item Value Reference Range Interpretation Comments Chloride Lvl (test code = Chloride Lvl) 94 95-109 [facility]2015-01-06 11:21:00 Test Item Value Reference Range Interpretation Comments Calcium Lvl (test code = Calcium Lvl) 9.1 8.5-10.5 [facility]2015-01-06 11:21:00 Test Item Value Reference Range Interpretation Comments CO2 (test code = CO2) 24 24-32 [facility]2015-01-06 11:21:00 Test Item Value Reference Range Interpretation Comments A/G Ratio (test code = A/G Ratio) 0.9 0.7-1.6 [facility]2015-01-06 11:21:00 Test Item Value Reference Range Interpretation Comments Globulin (test code = Globulin) 3.4 2.0-4.0 [facility]2015-01-06 11:21:00 Test Item Value Reference Range Interpretation Comments B/C Ratio (test code = B/C Ratio) 14 6-25 [facility]2015-01-06 11:21:00 Test Item Value Reference Range Interpretation Comments AGAP (test code = AGAP) 19.4 10.0-20.0 [facility]2015-01-06 11:21:00 Test Item Value Reference Range Interpretation Comments Lipase Lvl (test code = Lipase Lvl) 81 73-[address] [facility] CenterStidrhgGYUWCPPIOG4272-46-56 11:21:00 Test Item Value Reference Range Interpretation Comments Large Plt (test code = Large Plt) Slight [facility] CenterHvcprlkZCQNNJKZUX2973-79-66 11:21:00 Test Item Value Reference Range Interpretation Comments Basophils # (test code 0.0 See_Comment [Aut omated message] The = Basophils #) system which generated this result tra nsmitted reference range : <=0.2. The reference r leo was not used to int erpret this result as normal/abnormal . [facility] CenterIrkhrejDYODLYJCRZ6846-45-13 11:21:00 Test Item Value Reference Range Interpretation Comments Anisocyte (test code = 1+ *ABN*(06/26/14 5:21 Anisocyte) AM) [facility] CenterTkppufbJGFNXDTNFW8994-57-36 11:21:00 Test Item Value Reference Range Interpretation Comments Monocytes # (test code 0.6 See_Comment [Aut omated message] The = Monocytes #) system which generated this result tra nsmitted reference range : <=0.8. The reference r leo was not used to int erpret this result as normal/abnormal . [facility] CenterRzsdzsiTEYIOAVWTO3237-86-65 11:21:00 Test Item Value Reference Range Interpretation Comments Eosinophils # (test code 0.1 See_Comment [A utomated message] The = Eosinophils #) system whic h generated this result tra nsmitted reference range : <=0.5. The reference r leo was not used to int erpret this result as normal/abnormal . [facility] CenterVaxipmxSTAKNIJQDM5908-00-61 11:21:00 Test Item Value Reference Range Interpretation Comments Lymphocytes # (test code = Lymphocytes 2.5 1.0-5.5 #) [facility] CenterVlfuhqoDAFTJZHULS3120-34-54 11:21:00 Test Item Value Reference Range Interpretation Comments Segs (test code = Segs) 63.3 45.0-75.[address] [facility] CenterWtffdgmVRGEMOTKGY0737-29-14 11:21:00 Test Item Value Reference Range Interpretation Comments Segs-Bands # (test code = Segs-Bands #) 5.6 1.5-8.[address] [facility] CenterMfcnwnzEOHWAEQBOL6197-50-51 11:21:00 Test Item Value Reference Range Interpretation Comments Basophils (test code = 0.0 See_Comment [Aut omated message] The Basophils) system which ge nerated this result tra nsmitted reference range : <=1.0. The reference r leo was not used to int erpret this result as normal/abnormal . [facility] CenterXlurccnIDMAOUICQY8714-30-29 11:21:00 Test Item Value Reference Range Interpretation Comments Eosinophils (test code = 0.9 See_Comment [A utomated message] The Eosinophils) system which ge nerated this result tra nsmitted reference range : <=4.0. The reference r leo was not used to int erpret this result as normal/abnormal . [facility] CenterAvuyockVJGZGGZEPW7325-26-02 11:21:00 Test Item Value Reference Range Interpretation Comments Monocytes (test code = Monocytes) 7.0 2.0-12.[address] [facility] CenterJnxouqdIDIUMOMRZS9596-32-40 11:21:00 Test Item Value Reference Range Interpretation Comments Lymphocytes (test code = Lymphocytes) 28.8 20.0-40.[address] [facility] CenterTmxkkgwYGIIXRQNUS3350-68-99 11:21:00 Test Item Value Reference Range Interpretation Comments WBC (test code = WBC) 8.8 3.7-10.[address] CenterDlisnddRFPTGYNDTU8619-64-89 11:21:00 Test Item Value Reference Range Interpretation Comments RBC (test code = RBC) 5.19 4.20-5.[address] [facility] CenterRfelizlEBBHSCCXBH2582-30-68 11:21:00 Test Item Value Reference Range Interpretation Comments Hgb (test code = Hgb) 14.4 12.0-16.[address] [facility] CenterZkoscwoMKEXGDWRTH2867-21-63 11:21:00 Test Item Value Reference Range Interpretation Comments Hct (test code = Hct) 43.1 36.0-48.[address] [facility] CenterAklfqgoVJUKFUVMSK5629-87-30 11:21:00 Test Item Value Reference Range Interpretation Comments MCV (test code = MCV) 83.1 80.0-98.[address] [facility] CenterNwjdpdrFNUNBWEDEF5785-23-15 11:21:00 Test Item Value Reference Range Interpretation Comments MCH (test code = MCH) 27.8 pg 27.0-31.[address] [facility] CenterMvswlnqIKHUVWKYHA4547-58-74 11:21:00 Test Item Value Reference Range Interpretation Comments RDW (test code = RDW) 13.1 11.5-14.[address] [facility] CenterIqitqoxIQKBWJCZGX3932-10-78 11:21:00 Test Item Value Reference Range Interpretation Comments MCHC (test code = MCHC) 33.5 32.0-36.[address] [facility] CenterZwvwjlfBWUOXBHOQW7461-11-77 11:21:00 Test Item Value Reference Range Interpretation Comments Platelet (test code = Platelet) 201 133-[address] [facility] CenterYhecmgsBQNQMSYEMW5508-11-51 11:21:00 Test Item Value Reference Range Interpretation Comments MPV (test code = MPV) 10.4 7.4-10.4 [facility]VedbqdqVXXRQWUIZV6403-36-53 04:48:55 Test Item Value Reference Range Interpretation Comments UA [place] Yeast (test code = UA Occasional /HPF A [place] Yeast) [facility] HospitalLkbyquvZMNAYTHJMO5307-63-59 04:48:55 Test Item Value Reference Range Interpretation Comments UA Mucus (test code = UA Mucus) Few /LPF N [facility] HospitalFuqssmrYYQCGEPJXM3694-47-36 04:48:55 Test Item Value Reference Range Interpretation Comments UA Sq Epi (test code = UA Sq Moderate /LPF A Epi) [facility] HospitalRdszjceQZZZFYXIRU9439-86-22 04:48:55 Test Item Value Reference Range Interpretation Comments Micro? (test code = Performed (04/14/2013 N Micro?) 23:48:55) [facility] HospitalBafnjkjSOLDFPRPRY2554-01-55 04:48:55 Test Item Value Reference Range Interpretation Comments UA WBC (test code = UA WBC) 0-2 /HPF N [facility] HospitalQifwzayMMNQKOKWOB2259-24-00 04:48:55 Test Item Value Reference Range Interpretation Comments UA Bacteria (test code = UA Occasional /HPF N Bacteria) [facility] HospitalUbdoiviOJNGSKRNKS8073-47-80 04:48:55 Test Item Value Reference Range Interpretation Comments UA Glucose (test code = UA Glucose) 500 mg/dL A [facility] HospitalDqzuveeXXRROXUDPP6934-78-52 04:48:55 Test Item Value Reference Range Interpretation Comments UA Bili (test code = Negative *NA*(04/14/2013 UA Bili) 23:48:55) [facility] HospitalNczcufeLQCRRWCYHT0026-95-02 04:48:55 Test Item Value Reference Range Interpretation Comments UA Ketones (test code = Trace A UA Ketones) *ABN*(04/14/2013 23:48:55) [facility] HospitalHqoxaplVIBCQEZWSV5274-41-90 04:48:55 Test Item Value Reference Range Interpretation Comments UA Blood (test code = Negative (04/14/2013 N UA Blood) 23:48:55) [facility] HospitalDomowrkVDZVRWTBGS1714-66-63 04:48:55 Test Item Value Reference Range Interpretation Comments UA Urobilinogen (test code = UA 0.2 0.1-1.0 N Urobilinogen) [facility] HospitalSxnduutSIRFIAUJJT2512-31-18 04:48:55 Test Item Value Reference Range Interpretation Comments UA Nitrite (test code Negative (04/14/2013 N = UA Nitrite) 23:48:55) [facility] HospitalJlsmuumZDYYIXPVAJ5392-54-23 04:48:55 Test Item Value Reference Range Interpretation Comments UA Leuk Est (test Negative (04/14/2013 N code = UA Leuk Est) 23:48:55) [facility] HospitalHnjzywuQEPOEYIATS7386-70-94 04:48:55 Test Item Value Reference Range Interpretation Comments UA Turbidity (test code = Clear (04/14/2013 N UA Turbidity) 23:48:55) [facility] HospitalXtpniiyVASEGBZCOS8600-43-64 04:48:55 Test Item Value Reference Range Interpretation Comments UA Color (test code = Yellow *NA*(04/14/2013 UA Color) 23:48:55) [facility] HospitalHuekuerJPHMYIYSIH0329-23-92 04:48:55 Test Item Value Reference Range Interpretation Comments UA pH (test code = UA pH) 7.0 1 5.0-8.0 N [facility] TempleXcwncdyMBPVQJHMEQ9864-02-93 04:48:55 Test Item Value Reference Range Interpretation Comments UA Spec Grav (test code = UA Spec 1.025 1 N Grav) [facility] HospitalSecyifgXYOKPCOAMY4819-90-18 04:48:55 Test Item Value Reference Range Interpretation Comments UA Protein (test code = Trace A UA Protein) *ABN*(04/14/2013 23:48:55) [facility] CenterMzudrucKMYQQAKMA2529-93-65 04:28:00 Test Item Value Reference Range Interpretation Comments S Preg (test code = S Negative *NA*(04/14/2013 Preg) 23:28:00) [facility] CenterZzbbumaLGRORBMXL1346-46-03 04:28:00 Test Item Value Reference Range Interpretation Comments Lipase Lvl (test code = Lipase Lvl) 233 73-393 N [facility] CenterVhibeuwFWAVACNNA6128-23-72 04:28:00 Test Item Value Reference Range Interpretation Comments Globulin (test code = Globulin) 4.1 2.0-4.0 H [facility] CenterSirqmghXVZEBJJXW2169-20-59 04:28:00 Test Item Value Reference Range Interpretation Comments AGAP (test code = AGAP) 10.5 10.0-20.0 N [facility] CenterOwcafkrTYZAVAMSS2102-46-75 04:28:00 Test Item Value Reference Range Interpretation Comments B/C Ratio (test code = B/C Ratio) 6 6-25 N [facility] CenterNuuktdgDZNVOOHUH7528-03-44 04:28:00 Test Item Value Reference Range Interpretation Comments A/G Ratio (test code = A/G Ratio) 0.7 0.7-1.6 N [facility] CenterAqmyaiaWMGECVUQY8020-59-20 04:28:00 Test Item Value Reference Range Interpretation Comments eGFR (test code = eGFR) 130 [facility] CenterTgfyrgiMXDUOTMLM9398-89-06 04:28:00 Test Item Value Reference Range Interpretation Comments Albumin Lvl (test code = Albumin Lvl) 2.9 3.5-5.0 L [facility] CenterBwbidzsLKSXCZCIC5472-56-98 04:28:00 Test Item Value Reference Range Interpretation Comments ASPARTATE TRANSAMINASE 20 See_Comment N [Aut omated message] (test code = ASPARTATE The s ystem which TRANSAMINASE) generated this result transmitted ref erence range: <=37. Th e reference range was not used to interpr et this result as normal/abnormal . [facility] CenterPunivjqPPBNHFQLI2627-63-74 04:28:00 Test Item Value Reference Range Interpretation Comments Bili Total (test code = Bili Total) 0.5 0.2-1.3 N [facility] CenterJxbtdpwOZTATIKTR4981-06-86 04:28:00 Test Item Value Reference Range Interpretation Comments Alk Phos (test code = Alk Phos) 89 39-136 N [facility] CenterVetfiwvIXMTLNYTV1642-76-83 04:28:00 Test Item Value Reference Range Interpretation Comments ALANINE AMINOTRANSFERASE 11 See_Comment N [A utomated message] (test code = ALANINE The sys tem which AMINOTRANSFERASE) generated this result transmitted ref erence range: <=65. Th e reference range was not used to int erpret this result as normal/abnormal . [facility] CenterPrvpnnxURTUWZNGM4956-83-91 04:28:00 Test Item Value Reference Range Interpretation Comments Creatinine Lvl (test code = Creatinine 0.5 0.5-1.4 N Lvl) [facility] CenterEaorsbcUVZHBSQAG5230-19-40 04:28:00 Test Item Value Reference Range Interpretation Comments BUN (test code = BUN) 3 7-22 L [facility] CenterFwufgtaYWNRFRNZN8463-89-84 04:28:00 Test Item Value Reference Range Interpretation Comments Glucose Lvl (test code = Glucose Lvl) 255 70-99 H [facility] CenterRubfwgrQTSWPCJTP5274-12-02 04:28:00 Test Item Value Reference Range Interpretation Comments Total Protein (test code = Total 7.0 6.4-8.4 N Protein) [facility] CenterRalvyiwFOCYDCHPY0720-71-18 04:28:00 Test Item Value Reference Range Interpretation Comments Calcium Lvl (test code = Calcium Lvl) 8.7 8.5-10.5 N [facility] CenterOcoapdjTBCPCVWTC1709-99-75 04:28:00 Test Item Value Reference Range Interpretation Comments CO2 (test code = CO2) 29 24-32 N [facility] CenterTfrfhouFAJHAAHNJ6462-77-86 04:28:00 Test Item Value Reference Range Interpretation Comments Chloride Lvl (test code = Chloride Lvl) 104 95-109 N [facility] CenterZembiqoQNIFNNFPX6101-40-15 04:28:00 Test Item Value Reference Range Interpretation Comments Potassium Lvl (test code = Potassium 3.5 3.5-5.1 N Lvl) [facility] CenterHjaihdyXDBULTITS3950-86-29 04:28:00 Test Item Value Reference Range Interpretation Comments Sodium Lvl (test code = Sodium Lvl) 140 135-[address] [facility] CenterDqeigmcYSMVSILOKX9502-74-93 04:28:00 Test Item Value Reference Range Interpretation Comments PROTIME (test code = PROTIME) 12.1 s 12.0-14.[address] [facility] CenterVqshupeXSWGTZGYGL9374-36-24 04:28:00 Test Item Value Reference Range Interpretation Comments aPTT (test code = aPTT) 39.0 s 22.9-35.[address] CenterMmdgqylWTSKDYGJIN7251-25-80 04:28:00 Test Item Value Reference Range Interpretation Comments INR (test code = INR) 0.90 0.85-1.[address] [facility] CenterOclzjetFEVFMMADXS5856-39-48 04:28:00 Test Item Value Reference Range Interpretation Comments MCH (test code = MCH) 29.4 pg 27.0-31.[address] [facility] CenterRzptwbwZGKOBZBWEB9996-52-37 04:28:00 Test Item Value Reference Range Interpretation Comments MCV (test code = MCV) 86.1 81.0-99.[address] [facility] CenterKbrqatjCZZGUUJSKU5101-53-57 04:28:00 Test Item Value Reference Range Interpretation Comments Hct (test code = Hct) 29.4 36.0-48.[address] [facility] CenterQlarhftBDDPCYTEMC5347-59-64 04:28:00 Test Item Value Reference Range Interpretation Comments RDW (test code = RDW) 14.0 11.5-14.[address] CenterGomkxxnJFFBSFLPNH9991-41-92 04:28:00 Test Item Value Reference Range Interpretation Comments WBC X 10x3 (test code = WBC X 10x3) 6.2 3.7-10.[address] [facility] CenterRbwujhsCLLHTEFTLQ2702-67-00 04:28:00 Test Item Value Reference Range Interpretation Comments Platelet (test code = Platelet) 178 133-[address] [facility] CenterAtbkdgxHJVRZMAZRW6566-65-33 04:28:00 Test Item Value Reference Range Interpretation Comments MCHC (test code = MCHC) 34.1 32.0-36.[address] [facility] CenterPowrqtdJKDINQXEWN1679-29-41 04:28:00 Test Item Value Reference Range Interpretation Comments RBC X 10x6 (test code = RBC X 10x6) 3.41 4.20-5.[address] [facility] CenterDtrdbkbOMWXNTUTSL2156-07-94 04:28:00 Test Item Value Reference Range Interpretation Comments Hgb (test code = Hgb) 10.0 12.0-16.[address] [facility] CenterCsfsihxGUTPNTRRHC6971-54-24 04:28:00 Test Item Value Reference Range Interpretation Comments MPV (test code = MPV) 10.1 7.4-10.[address] [facility] CenterJyqqjmeXNKJHAMBYA1204-83-72 04:28:00 Test Item Value Reference Range Interpretation Comments Segs-Bands # (test code = Segs-Bands #) 4.4 1.5-8.[address] [facility] CenterBbzgddfJKNRQVAIDS2233-74-41 04:28:00 Test Item Value Reference Range Interpretation Comments Basophils (test code = 0.7 See_Comment N [Aut omated message] The Basophils) system which ge nerated this result tra nsmitted reference range : <=1.0. The reference r leo was not used to int erpret this result as normal/abnormal . [facility] CenterKojrrqxMIUXAXJYTE5003-21-56 04:28:00 Test Item Value Reference Range Interpretation Comments Segs (test code = Segs) 70.7 45.0-75.[address] [facility] CenterXstlmncFRCARNCDYI3904-42-09 04:28:00 Test Item Value Reference Range Interpretation Comments Monocytes # (test code 0.3 See_Comment N [Aut omated message] The = Monocytes #) system which generated this result tra nsmitted reference range : <=0.8. The reference r leo was not used to int erpret this result as normal/abnormal . [facility] CenterImuqoveMAFOHJZTXB2416-66-56 04:28:00 Test Item Value Reference Range Interpretation Comments Lymphocytes # (test code = Lymphocytes 1.2 1.0-5.5 N #) [facility] CenterKoocgjvVVZNKKXHWX7819-80-67 04:28:00 Test Item Value Reference Range Interpretation Comments Monocytes (test code = Monocytes) 4.5 2.0-12.[address] [facility] CenterIstxbuqMTVNGENKUB9598-01-26 04:28:00 Test Item Value Reference Range Interpretation Comments Eosinophils (test code = 4.1 See_Comment H [A utomated message] The Eosinophils) system which ge nerated this result tra nsmitted reference range : <=4.0. The reference r leo was not used to int erpret this result as normal/abnormal . [facility] CenterReihpdzTCPHWVVWHM5011-94-35 04:28:00 Test Item Value Reference Range Interpretation Comments Lymphocytes (test code = Lymphocytes) 20.0 20.0-40.[address] [facility] CenterEcnxbxkRFOZGTPYXI2116-04-70 04:28:00 Test Item Value Reference Range Interpretation Comments Basophils # (test code 0.0 See_Comment N [Aut omated message] The = Basophils #) system which generated this result tra nsmitted reference range : <=0.2. The reference r leo was not used to int erpret this result as normal/abnormal . [facility] CenterWzsenhzCBHJLQTTKD8235-70-23 04:28:00 Test Item Value Reference Range Interpretation Comments Eosinophils # (test code 0.3 See_Comment N [A utomated message] The = Eosinophils #) system whic h generated this result tra nsmitted reference range : <=0.5. The reference r leo was not used to int erpret this result as normal/abnormal . [facility] GLUCOSE [id number] 01:12:00 Test Item Value Reference Range Interpretation Comments Gluc POC Lifscn (test code = Gluc POC 260 70-99 H Lifscn) [facility] GLUCOSE AANMIHR2815-12-00 01:12:00 Test Item Value Reference Range Interpretation Comments Comment1 (test code = Comment1) Notify RN/MD [facility] TempleDlpkjxrOSTYTGLNUW9130-83-29 23:40:00 Test Item Value Reference Range Interpretation Comments UA Protein (test code = Trace A UA Protein) *ABN*(03/14/2012 18:40:00) [facility] TempleStcbropVDGWOZRAAO6310-00-09 23:40:00 Test Item Value Reference Range Interpretation Comments UA pH (test code = UA pH) 6.0 1 5.0-8.0 N [facility] WorthXvrfpvkMMYYXJISOW5429-69-14 23:40:00 Test Item Value Reference Range Interpretation Comments UA Ketones (test code = >=80 mg/dL UA Ketones) *NA*(03/14/2012 18:40:00) [facility] TempleFsmtirgVKGNLDOXGW2272-46-19 23:40:00 Test Item Value Reference Range Interpretation Comments UA Glucose (test code = >=1000 mg/dL A UA Glucose) *ABN*(03/14/2012 18:40:00) [facility]UwdqxhfGAURJBDNZE2933-30-98 23:40:00 Test Item Value Reference Range Interpretation Comments UA Blood (test code = Negative (03/14/2012 N UA Blood) 18:40:00) [facility] HospitalYvanhgbIWBVSFYWMA7675-41-23 23:40:00 Test Item Value Reference Range Interpretation Comments UA Nitrite (test code Negative (03/14/2012 N = UA Nitrite) 18:40:00) [facility] HospitalVwahhtdADYXOZCSZV3824-80-48 23:40:00 Test Item Value Reference Range Interpretation Comments UA Urobilinogen (test code = UA 0.2 0.1-1.0 N Urobilinogen) [facility] HospitalGrdaudmYPBTJKEQTA7979-34-77 23:40:00 Test Item Value Reference Range Interpretation Comments UA Leuk Est (test Negative (03/14/2012 N code = UA Leuk Est) 18:40:00) [facility] HospitalXbnpuquEZASYZKSUX4825-71-66 23:40:00 Test Item Value Reference Range Interpretation Comments UA Bili (test code = Negative *NA*(03/14/2012 UA Bili) 18:40:00) [facility] HospitalSvdebtjWUJJODUTKD2677-24-19 23:40:00 Test Item Value Reference Range Interpretation Comments UA Turbidity (test code = Clear (03/14/2012 N UA Turbidity) 18:40:00) [facility] HospitalZfrjpkoRGNIFKETFL0264-87-81 23:40:00 Test Item Value Reference Range Interpretation Comments UA Color (test code = Yellow *NA*(03/14/2012 UA Color) 18:40:00) [facility] HospitalWplkzobDUBJZEXZAI6249-00-60 23:40:00 Test Item Value Reference Range Interpretation Comments UA Spec Grav (test >=1.030 A code = UA Spec Grav) *ABN*(03/14/2012 18:40:00) [facility] HospitalBkpywtbYJIQUCFPUU3534-51-29 23:40:00 Test Item Value Reference Range Interpretation Comments UA Sq Epi (test code Occasional /LPF N = UA Sq Epi) (03/14/2012 18:40:00) [facility] HospitalSedjsxhBDMDGFYSWO4139-34-82 23:40:00 Test Item Value Reference Range Interpretation Comments UA WBC (test code = UA 3-5 /HPF (03/14/2012 N WBC) 18:40:00) [facility] TempleQhrcyroWZCQVOFACJ7531-33-93 23:40:00 Test Item Value Reference Range Interpretation Comments UA Bacteria (test code Occasional /HPF N = UA Bacteria) (03/14/2012 18:40:00) [facility] CenterBfmclhlFZJXXECIA5688-25-48 22:50:00 Test Item Value Reference Range Interpretation Comments S Preg (test code = S Negative *NA*(03/14/2012 Preg) 17:50:00) [facility] CenterQfvglvyFRPNKYOCJ7333-20-89 22:50:00 Test Item Value Reference Range Interpretation Comments Lipase Lvl (test code = Lipase Lvl) 45 73-393 L [facility] CenterLehqaymJUAUVOSHN2705-11-16 22:50:00 Test Item Value Reference Range Interpretation Comments A/G Ratio (test code = A/G Ratio) 1.2 0.7-1.6 N [facility] CenterTabwjynXFAWZHDFX2738-27-41 22:50:00 Test Item Value Reference Range Interpretation Comments Globulin (test code = Globulin) 3.8 2.0-4.0 N [facility] CenterAcfudidMDSOMZTXU3122-35-24 22:50:00 Test Item Value Reference Range Interpretation Comments B/C Ratio (test code = B/C Ratio) 21 6-25 N [facility] CenterUluslnsRSSTVERTB5463-93-53 22:50:00 Test Item Value Reference Range Interpretation Comments AGAP (test code = AGAP) 16.8 10.0-20.0 N [facility] CenterKelvdcsQNDZWJNDB0712-79-09 22:50:00 Test Item Value Reference Range Interpretation Comments Bili Total (test code = Bili Total) 1.1 0.2-1.3 N [facility] CenterRsuhvibQMAHFGNLP4933-03-64 22:50:00 Test Item Value Reference Range Interpretation Comments Total Protein (test code = Total 8.2 6.4-8.4 N Protein) [facility] CenterMvvaxchCANKBLUYS9122-35-47 22:50:00 Test Item Value Reference Range Interpretation Comments Potassium Lvl (test code = Potassium 3.8 3.5-5.1 N Lvl) [facility] CenterNhxsoibAGPFSTXTM0512-19-66 22:50:00 Test Item Value Reference Range Interpretation Comments Creatinine Lvl (test code = Creatinine 0.7 0.5-1.4 N Lvl) [facility] CenterRucdseoZRWNJPOUE7516-48-71 22:50:00 Test Item Value Reference Range Interpretation Comments Sodium Lvl (test code = Sodium Lvl) 139 135-145 N [facility] CenterQatmmfiOTYIDRYBH4623-91-59 22:50:00 Test Item Value Reference Range Interpretation Comments Chloride Lvl (test code = Chloride Lvl) 99 95-109 N [facility] CenterLdpdtfzEPMHOAYUM7913-61-00 22:50:00 Test Item Value Reference Range Interpretation Comments CO2 (test code = CO2) 27 24-32 N [facility] CenterWbzagvnUQUTUGUXO7073-37-44 22:50:00 Test Item Value Reference Range Interpretation Comments Glucose Lvl (test code = Glucose Lvl) 301 70-99 H [facility] CenterMfgiihjBOPTCISEO6969-68-52 22:50:00 Test Item Value Reference Range Interpretation Comments BUN (test code = BUN) 15 7-22 N [facility] CenterLmogavgICCEKIVAS3325-17-49 22:50:00 Test Item Value Reference Range Interpretation Comments ALT (test code = ALT) 24 See_Comment N [Auto mated message] The system which ge nerated this result transmit rohit reference range : <=65. The reference range was not used to interpr et this result as reji l/abnormal. [facility] CenterAdbocqpCQNUBHKPQ9918-77-72 22:50:00 Test Item Value Reference Range Interpretation Comments AST (test code = AST) 20 See_Comment N [Auto mated message] The system which ge nerated this result transmit rohit reference range : <=37. The reference range was not used to interpr et this result as reji l/abnormal. [facility] CenterTlfwdezTEXUHURHI7673-81-77 22:50:00 Test Item Value Reference Range Interpretation Comments Alk Phos (test code = Alk Phos) 67 39-136 N [facility] CenterAqjbkmgJXWRHKRXJ2305-64-31 22:50:00 Test Item Value Reference Range Interpretation Comments Albumin Lvl (test code = Albumin Lvl) 4.4 3.5-5.0 N [facility] CenterHlnksiaJQJYMURQU8448-70-49 22:50:00 Test Item Value Reference Range Interpretation Comments Calcium Lvl (test code = Calcium Lvl) 9.9 8.5-10.[address] [facility] CenterAqlyyuaYZSBNJCLZO2839-94-22 22:50:00 Test Item Value Reference Range Interpretation Comments MPV (test code = MPV) 11.8 7.4-10.[address] [facility] CenterVshniprOWNYZJDTWC2382-93-88 22:50:00 Test Item Value Reference Range Interpretation Comments MCHC (test code = MCHC) 35.9 32.0-36.[address] [facility] CenterRaeasqzBCLSUTNDFB8236-84-90 22:50:00 Test Item Value Reference Range Interpretation Comments MCH (test code = MCH) 31.2 pg 27.0-31.[address] [facility] CenterZqvemurDEZLQOSELU4150-87-51 22:50:00 Test Item Value Reference Range Interpretation Comments Platelet (test code = Platelet) 189 133-[address] [facility] CenterHwvtpfgXIHLBNKWYA0687-17-33 22:50:00 Test Item Value Reference Range Interpretation Comments RDW (test code = RDW) 13.1 11.5-14.[address] [facility] CenterSfmzmozYJBHWGMMUX0682-30-42 22:50:00 Test Item Value Reference Range Interpretation Comments Hct (test code = Hct) 40.7 36.0-48.[address] [facility] CenterJbnzxudORWYUQWDJT5215-33-48 22:50:00 Test Item Value Reference Range Interpretation Comments Hgb (test code = Hgb) 14.6 12.0-16.[address] [facility] CenterZcimxoxOXRSKYNISC8183-73-79 22:50:00 Test Item Value Reference Range Interpretation Comments MCV (test code = MCV) 87.0 81.0-99.[address] [facility] CenterGxyoqnoDJOKPZGWDY3770-25-44 22:50:00 Test Item Value Reference Range Interpretation Comments WBC (test code = WBC) 11.7 3.7-10.[address] [facility] CenterEdrrvekDVSAKZTJOZ5325-90-49 22:50:00 Test Item Value Reference Range Interpretation Comments RBC (test code = RBC) 4.68 4.20-5.[address] [facility] CenterCpehjejNYTEPSOIKF3650-87-67 22:50:00 Test Item Value Reference Range Interpretation Comments Basophils # (test code 0.0 See_Comment N [Aut omated message] The = Basophils #) system which generated this result tra nsmitted reference range : <=0.2. The reference r leo was not used to int erpret this result as normal/abnormal . [facility] CenterXqenizfMKZBDKZBUV4269-50-88 22:50:00 Test Item Value Reference Range Interpretation Comments Basophils (test code = 0.2 See_Comment N [Aut omated message] The Basophils) system which ge nerated this result tra nsmitted reference range : <=1.0. The reference r leo was not used to int erpret this result as normal/abnormal . [facility] CenterDgcxmduQPUQVQULHA1866-96-07 22:50:00 Test Item Value Reference Range Interpretation Comments Eosinophils # (test code 0.0 See_Comment N [A utomated message] The = Eosinophils #) system whic h generated this result tra nsmitted reference range : <=0.5. The reference r leo was not used to int erpret this result as normal/abnormal . [facility] CenterDegrstuBENPZHWZNA6577-84-31 22:50:00 Test Item Value Reference Range Interpretation Comments Monocytes # (test code 0.4 See_Comment N [Aut omated message] The = Monocytes #) system which generated this result tra nsmitted reference range : <=0.8. The reference r leo was not used to int erpret this result as normal/abnormal . [facility] CenterMqnaphaBFEDDCQIYT5968-07-37 22:50:00 Test Item Value Reference Range Interpretation Comments Segs-Bands # (test code = Segs-Bands #) 10.6 1.5-8.[address] [facility] CenterBobiiczHFXPXJIJGQ7467-02-03 22:50:00 Test Item Value Reference Range Interpretation Comments Lymphocytes # (test code = Lymphocytes 0.7 1.0-5.5 L #) [facility] CenterZpncixtFVYXWVNHRR3613-93-50 22:50:00 Test Item Value Reference Range Interpretation Comments Monocytes (test code = Monocytes) 3.4 2.0-12.[address] [facility] CenterBftfjjdQGUBNBAAKO5175-88-28 22:50:00 Test Item Value Reference Range Interpretation Comments Plt Morph (test code = Normal (03/14/2012 N Plt Morph) 17:50:00) [facility] CenterTbolcsgNJXJREIVIN8649-68-46 22:50:00 Test Item Value Reference Range Interpretation Comments Lymphocytes (test code = Lymphocytes) 6.0 20.0-40.[address] [facility] CenterVgpczxnVSLONWLTIK3454-28-95 22:50:00 Test Item Value Reference Range Interpretation Comments Eosinophils (test code = 0.0 See_Comment N [A utomated message] The Eosinophils) system which ge nerated this result tra nsmitted reference range : <=4.0. The reference r leo was not used to int erpret this result as normal/abnormal . [facility] TempleXoguyosSLACEHDRBP7550-82-58 22:50:00 Test Item Value Reference Range Interpretation Comments Segs (test code = Segs) 90.4 45.0-75.0 H [facility] TempleNtxsuvdVGHNDLCEEK4219-47-92 22:50:00 Test Item Value Reference Range Interpretation Comments RBC Morph (test code = Normal (03/14/2012 N RBC Morph) 17:50:00) [facility] GLUCOSE DWWDEDG5773-11-55 23:43:00 Test Item Value Reference Range Interpretation Comments Gluc POC Lifscn (test code = Gluc POC 167 70-99 H Lifscn) [facility] GLUCOSE JQYPPLK7705-08-28 23:43:00 Test Item Value Reference Range Interpretation Comments Comment1 (test code = Comment1) Notify RN/ [facility] GLUCOSE MKIREPH3226-51-45 23:43:00 Test Item Value Reference Range Interpretation Comments Comment2 (test code = Comment2) Sliding Scale [facility] GLUCOSE IMOLYVT6741-68-14 17:40:00 Test Item Value Reference Range Interpretation Comments Gluc POC Lifscn (test code = Gluc POC 189 70-99 H Lifscn) [facility] GLUCOSE HGTHPFF4332-01-96 17:40:00 Test Item Value Reference Range Interpretation Comments Comment1 (test code = Comment1) Notify RN/ [facility] GLUCOSE UYUQGEZ6404-60-37 17:40:00 Test Item Value Reference Range Interpretation Comments Comment2 (test code = Comment2) [facility] Scale [facility] AGGFAJJ6973-95-59 13:34:00 Test Item Value Reference Range Interpretation Comments Comment2 (test code = Comment2) Sliding Scale [facility] GLUCOSE WWRMXYU6018-76-16 13:34:00 Test Item Value Reference Range Interpretation Comments Gluc POC Lifscn (test code = Gluc POC 110 70-99 H Lifscn) [facility] GLUCOSE PQNZEVI4099-63-91 13:34:00 Test Item Value Reference Range Interpretation Comments Comment1 (test code = Comment1) Notify TABATHA/ [facility] HospitalYyjziyrIUKXPLDAF5257-09-44 00:00:00 Test Item Value Reference Range Interpretation Comments U Preg (test code = U Negative (11/28/2011 N Preg) 19:00:00) [facility] TempleRwwdwzcGPUGOHNQJI2485-17-84 00:00:00 Test Item Value Reference Range Interpretation Comments Micro? (test code = Performed (11/28/2011 N Micro?) 19:00:00) [facility] WorthUayicqjSJKPWXXGXT4974-01-25 00:00:00 Test Item Value Reference Range Interpretation Comments UA Sq Epi (test code Occasional /LPF N = UA Sq Epi) (11/28/2011 19:00:00) [facility] TempleTmjjeatJYYCYMERRE5176-36-05 00:00:00 Test Item Value Reference Range Interpretation Comments UA RBC (test None Seen See_Comment N [Automated mes pastor] code = UA RBC) (11/28/2011 The system ich 19:00:00) generated this result transmitted ref erence range: <=2. The reference range was not used to int erpret this result as normal/abnormal . [facility] TempleZthxbsfUVSGSNRUEE1675-00-86 00:00:00 Test Item Value Reference Range Interpretation Comments UA WBC (test code Occasional See_Comment [Automate d message] The = UA WBC) system which ge nerated this result tra nsmitted reference range : <=5. The reference range was not used to interpr et this result as normal/abnormal . [facility] WorthHbrbuudITCIIXWRZH4255-42-92 00:00:00 Test Item Value Reference Range Interpretation Comments UA Protein (test code Negative mg/dL N = UA Protein) (11/28/2011 19:00:00) [facility] TempleIiwvnnfAETUGVWNRY6029-23-97 00:00:00 Test Item Value Reference Range Interpretation Comments UA pH (test code = UA pH) 7.0 1 5.0-8.0 N [facility] TempleXvspkgoLDDYSGAETW7013-24-83 00:00:00 Test Item Value Reference Range Interpretation Comments UA Spec Grav (test code = UA Spec 1.020 1 N Grav) [facility] WorthOucehhuYEUFWXBNPA0765-40-38 00:00:00 Test Item Value Reference Range Interpretation Comments UA Turbidity (test code = Clear (11/28/2011 N UA Turbidity) 19:00:00) [facility] WorthMpaotqbTJLEUJOOZS2727-17-59 00:00:00 Test Item Value Reference Range Interpretation Comments UA Color (test code = Yellow *NA*(11/28/2011 UA Color) 19:00:00) [facility] HospitalDfpxkkvHLHKIEVMZP8699-00-49 00:00:00 Test Item Value Reference Range Interpretation Comments UA Urobilinogen (test code = UA 0.2 0.1-1.0 N Urobilinogen) [facility] HospitalMikpgrvWCBUCVYXMK6125-38-28 00:00:00 Test Item Value Reference Range Interpretation Comments UA Blood (test code = Negative (11/28/2011 N UA Blood) 19:00:00) [facility] WorthZgcraokNVHTJSDNSZ7437-82-35 00:00:00 Test Item Value Reference Range Interpretation Comments UA Bili (test code = Negative *NA*(11/28/2011 UA Bili) 19:00:00) [facility] HospitalWkfcxwdJMGCJNRDAE7800-76-24 00:00:00 Test Item Value Reference Range Interpretation Comments UA Ketones (test code = >=80 mg/dL A UA Ketones) *ABN*(11/28/2011 19:00:00) [facility] HospitalTxcuhgdPDDZKBIORX5996-21-14 00:00:00 Test Item Value Reference Range Interpretation Comments UA Glucose (test code = >=1000 mg/dL A UA Glucose) *ABN*(11/28/2011 19:00:00) [facility] HospitalWsjczawTNXRJFMEHL7932-94-88 00:00:00 Test Item Value Reference Range Interpretation Comments UA Nitrite (test code Negative (11/28/2011 N = UA Nitrite) 19:00:00) [facility] HospitalOqhazmcQJGLFGRRFO7705-85-25 00:00:00 Test Item Value Reference Range Interpretation Comments UA Leuk Est (test Negative (11/28/2011 N code = UA Leuk Est) 19:00:00) [facility] CenterUvoktanJYYEFTVFG5525-38-31 20:41:00 Test Item Value Reference Range Interpretation Comments pO2 Roberth (test code = pO2 Roberth) 60 20-49 H [facility] CenterUavsolhXKQJWCUTQ3033-01-44 20:41:00 Test Item Value Reference Range Interpretation Comments pCO2 Roberth (test code = pCO2 Roberth) 41 38-52 N [facility] CenterBczvvkqSXZNDHBBT3620-00-77 20:41:00 Test Item Value Reference Range Interpretation Comments pH Roberth (test code = pH Roberth) 7.45 7.28-7.42 H [facility] CenterBryueqiTXNDQQBDB4849-48-42 20:41:00 Test Item Value Reference Range Interpretation Comments Temp Roberth (test code = Temp Roberth) 37.0 [facility] CenterUdfkqgaWUDMNKMJZ1816-05-44 20:41:00 Test Item Value Reference Range Interpretation Comments O2 Sat Roberth (test code = O2 Sat Roberth) 92.0 40.0-70.0 H [facility] CenterXrspxhtMMLCCRPVO1973-47-55 20:41:00 Test Item Value Reference Range Interpretation Comments BE Roberth (test code = 4 See_Comment H [Automa rohit message] The BE Roberth) system which ge nerated this result transmit rohit reference range : <=2. The reference range was not used to interpr et this result as reji l/abnormal. [facility] CenterEqkxbttEITFNCYDL4183-19-83 20:41:00 Test Item Value Reference Range Interpretation Comments HCO3 Roberth (test code = HCO3 Roberth) 28.5 22.0-26.0 H [facility] CenterGblwkubJPXBKWJVO1037-53-84 20:00:00 Test Item Value Reference Range Interpretation Comments Lactic Acid Lvl (test code = Lactic 1.6 0.5-2.2 N Acid Lvl) [facility] CenterWiohkplCCHGHOEKG0615-61-10 20:00:00 Test Item Value Reference Range Interpretation Comments Lipase Lvl (test code = Lipase Lvl) 125 73-393 N [facility] CenterHtgshflTCMKIWJGX1900-91-92 20:00:00 Test Item Value Reference Range Interpretation Comments Albumin Lvl (test code = Albumin Lvl) 4.2 3.5-5.0 N [facility] CenterOvgefceWJGVSYVCS1409-16-76 20:00:00 Test Item Value Reference Range Interpretation Comments CO2 (test code = CO2) 23 24-32 L [facility] CenterWaoybvwOQMUNNGJG2512-33-47 20:00:00 Test Item Value Reference Range Interpretation Comments Chloride Lvl (test code = Chloride Lvl) 98 95-109 N [facility] CenterNakphswSEJKPWQQP6285-06-49 20:00:00 Test Item Value Reference Range Interpretation Comments Potassium Lvl (test code = Potassium 3.8 3.5-5.1 N Lvl) [facility] CenterTeozxwvOVMSJSKHB2186-20-70 20:00:00 Test Item Value Reference Range Interpretation Comments Sodium Lvl (test code = Sodium Lvl) 138 135-145 N [facility] CenterInhqpzlOFRYYLPDY1313-92-11 20:00:00 Test Item Value Reference Range Interpretation Comments Creatinine Lvl (test code = Creatinine 0.7 0.5-1.4 N Lvl) [facility] CenterLehznotTDVQSBFHB5299-88-26 20:00:00 Test Item Value Reference Range Interpretation Comments BUN (test code = BUN) 9 7-22 N [facility] CenterPfphbqoGENXJFDAS4863-29-78 20:00:00 Test Item Value Reference Range Interpretation Comments Glucose Lvl (test code = Glucose Lvl) 269 70-99 H [facility] CenterYnuvfhjLLPSSOWIQ6568-60-93 20:00:00 Test Item Value Reference Range Interpretation Comments B/C Ratio (test code = B/C Ratio) 13 6-25 N [facility] CenterPdxayqcIRSEUIIIH0226-82-88 20:00:00 Test Item Value Reference Range Interpretation Comments AGAP (test code = AGAP) 20.8 10.0-20.0 H [facility] CenterXobdtkeFVAHFKWFM3496-49-16 20:00:00 Test Item Value Reference Range Interpretation Comments Calcium Lvl (test code = Calcium Lvl) 9.3 8.5-10.5 N [facility] CenterOgivfwsHELFCUGKU4690-61-69 20:00:00 Test Item Value Reference Range Interpretation Comments Total Protein (test code = Total 6.7 6.4-8.4 N Protein) [facility] CenterQzlwmwcWBPXEJQTV8668-95-08 20:00:00 Test Item Value Reference Range Interpretation Comments A/G Ratio (test code = A/G Ratio) 1.7 0.7-1.6 H [facility] CenterAyzjksmEDUOPQUTW1048-15-74 20:00:00 Test Item Value Reference Range Interpretation Comments Globulin (test code = Globulin) 2.5 2.0-4.0 N [facility] CenterBmmbnhdAXMXZBEBJ0471-62-37 20:00:00 Test Item Value Reference Range Interpretation Comments AST (test code = AST) 18 See_Comment N [Auto mated message] The system which ge nerated this result transmit rohit reference range : <=37. The reference range was not used to interpr et this result as reji l/abnormal. [facility] CenterNetdcgoZBEOBNNHD8645-38-61 20:00:00 Test Item Value Reference Range Interpretation Comments Alk Phos (test code = Alk Phos) 62 39-136 N [facility] CenterFqrzeydFITNKXCFH6966-08-71 20:00:00 Test Item Value Reference Range Interpretation Comments ALT (test code = ALT) 32 See_Comment N [Auto mated message] The system which ge nerated this result transmit rohit reference range : <=65. The reference range was not used to interpr et this result as reji l/abnormal. [facility] CenterEujxafhBRQETVLZQ7490-63-95 20:00:00 Test Item Value Reference Range Interpretation Comments Bili Total (test code = Bili Total) 0.7 0.2-1.[address] [facility] CenterPgsokevGPMBTASXVL4402-53-95 20:00:00 Test Item Value Reference Range Interpretation Comments Anisocyte (test code = 1+ *ABN*(11/28/2011 A Anisocyte) 15:00:00) [facility] CenterChhhfocHAFGBNFMLY0584-35-74 20:00:00 Test Item Value Reference Range Interpretation Comments Monocytes # (test code 0.1 See_Comment N [Aut omated message] The = Monocytes #) system which generated this result tra nsmitted reference range : <=0.8. The reference r leo was not used to int erpret this result as normal/abnormal . [facility] CenterJdbdkkePFOCRWKYMQ0346-63-83 20:00:00 Test Item Value Reference Range Interpretation Comments Eosinophils # (test code 0.0 See_Comment N [A utomated message] The = Eosinophils #) system whic h generated this result tra nsmitted reference range : <=0.5. The reference r leo was not used to int erpret this result as normal/abnormal . [facility] CenterCyardkzSIHYMYVXPP4559-90-04 20:00:00 Test Item Value Reference Range Interpretation Comments Basophils # (test code 0.0 See_Comment N [Aut omated message] The = Basophils #) system which generated this result tra nsmitted reference range : <=0.2. The reference r leo was not used to int erpret this result as normal/abnormal . [facility] CenterPsogoneRMVMBXFIQQ7902-64-18 20:00:00 Test Item Value Reference Range Interpretation Comments Neut Vac (test code = Slight *ABN*(11/28/2011 A Neut Vac) 15:00:00) [facility] CenterOxcigkiVEIICSLTFF5049-57-21 20:00:00 Test Item Value Reference Range Interpretation Comments Large Plt (test code = Slight *ABN*(11/28/2011 A Large Plt) 15:00:00) [facility] CenterKjalixrDZYWVUGBHS3341-21-46 20:00:00 Test Item Value Reference Range Interpretation Comments Segs-Bands # (test code = Segs-Bands #) 5.7 1.5-8.[address] [facility] CenterByuuzfrXNULTMVRVD0744-41-82 20:00:00 Test Item Value Reference Range Interpretation Comments Lymphocytes # (test code = Lymphocytes 0.8 1.0-5.5 L #) [facility] CenterXuksnytYUZRXJTGML2275-69-68 20:00:00 Test Item Value Reference Range Interpretation Comments Eosinophils (test code = 0.2 See_Comment N [A utomated message] The Eosinophils) system which ge nerated this result tra nsmitted reference range : <=4.0. The reference r leo was not used to int erpret this result as normal/abnormal . [facility] CenterFoycjheQXVLTWTXUM1990-49-90 20:00:00 Test Item Value Reference Range Interpretation Comments Basophils (test code = 0.0 See_Comment N [Aut omated message] The Basophils) system which ge nerated this result tra nsmitted reference range : <=1.0. The reference r leo was not used to int erpret this result as normal/abnormal . [facility] CenterWybbyhdQGIRPHFVSS7614-82-31 20:00:00 Test Item Value Reference Range Interpretation Comments Monocytes (test code = Monocytes) 1.9 2.0-12.[address] [facility] CenterCnlybxqPLPUYKLAFG0817-39-32 20:00:00 Test Item Value Reference Range Interpretation Comments Segs (test code = Segs) 86.2 45.0-75.[address] CenterIuuunjtMIHRHBDLRP0667-96-58 20:00:00 Test Item Value Reference Range Interpretation Comments Lymphocytes (test code = Lymphocytes) 11.7 20.0-40.[address] CenterOfhntujUHFMGEGZOY4960-32-69 20:00:00 Test Item Value Reference Range Interpretation Comments MPV (test code = MPV) 10.8 7.4-10.[address] [facility] CenterSkgybkkJRVKGIDAUW5896-01-31 20:00:00 Test Item Value Reference Range Interpretation Comments Platelet (test code = Platelet) 161 133-[address] CenterDzsimixBYSHLOHYIO4248-18-03 20:00:00 Test Item Value Reference Range Interpretation Comments MCHC (test code = MCHC) 35.6 32.0-36.[address] CenterBzmriwdQCXRSATVZM3220-48-87 20:00:00 Test Item Value Reference Range Interpretation Comments RDW (test code = RDW) 12.4 11.5-14.[address] [facility] CenterCgxplzdCKARNQSEAV5807-79-95 20:00:00 Test Item Value Reference Range Interpretation Comments MCH (test code = MCH) 30.7 pg 27.0-31.[address] CenterLiwokfnCXHRESBHTA7770-42-35 20:00:00 Test Item Value Reference Range Interpretation Comments MCV (test code = MCV) 86.1 81.0-99.[address] [facility] CenterTqlcfjpYRRSHNCPAJ7812-70-70 20:00:00 Test Item Value Reference Range Interpretation Comments Hct (test code = Hct) 33.6 36.0-48.[address] CenterSzgyyquDOKUEFZVQS2980-87-53 20:00:00 Test Item Value Reference Range Interpretation Comments Hgb (test code = Hgb) 12.0 12.0-16.[address] CenterEjdvrpdXVRLRFXNZA8839-19-08 20:00:00 Test Item Value Reference Range Interpretation Comments RBC (test code = RBC) 3.90 4.20-5.[address] CenterTeubpgyZHCSRQVSEO3208-31-49 20:00:00 Test Item Value Reference Range Interpretation Comments WBC (test code = WBC) 6.6 3.7-10.4 N [facility] CenterBdduesnDXDMLPDUM8670-94-88 19:51:00 Test Item Value Reference Range Interpretation Comments UDS Note (test code = See Note UDS Note) 5*NA*(11/28/2011 14:51:00) [facility] CenterOyyulirUKJVKJPXO9591-93-13 19:51:00 Test Item Value Reference Range Interpretation Comments U Phencyc Scr (test Negative code = U Phencyc Scr) *NA*(11/28/2011 14:51:00) [facility] CenterIdfqgefTUPPNBRPK2308-95-15 19:51:00 Test Item Value Reference Range Interpretation Comments U Kelly Scr (test code Negative *NA*(11/28/2011 = U Kelly Scr) 14:51:00) [facility] CenterHpxwhciJJMQZUFYK9637-87-41 19:51:00 Test Item Value Reference Range Interpretation Comments U Amph Scr (test code Negative *NA*(11/28/2011 = U Amph Scr) 14:51:00) [facility]BmxhfoaISODNPYFA0494-85-39 19:51:00 Test Item Value Reference Range Interpretation Comments U Opiate Scr (test Negative code = U Opiate Scr) *NA*(11/28/2011 14:51:00) [facility] CenterEqzwwmgSWOTYWEMQ3545-56-04 19:51:00 Test Item Value Reference Range Interpretation Comments U Cocaine Scr (test Negative code = U Cocaine Scr) *NA*(11/28/2011 14:51:00) [facility] CenterKeiycfwEVSFXYTKU5982-46-72 19:51:00 Test Item Value Reference Range Interpretation Comments U Cannab Scr (test Negative code = U Cannab Scr) *NA*(11/28/2011 14:51:00) [facility] CenterHtmybxpSSVHEBZJW2356-13-14 19:51:00 Test Item Value Reference Range Interpretation Comments U Benzodia Scr (test Negative code = U Benzodia Scr) *NA*(11/28/2011 14:51:00) [facility] GLUCOSE WNNSTAE0177-44-75 16:20:00 Test Item Value Reference Range Interpretation Comments Comment1 (test code = Comment1) Notify RN/MD [facility] GLUCOSE ZEYBSKE4704-38-78 16:20:00 Test Item Value Reference Range Interpretation Comments Gluc POC Lifscn (test code = Gluc POC 328 70-99 H Lifscn) [facility] CenterPlwbwvrTIMPNZRQC4603-38-50 15:30:00 Test Item Value Reference Range Interpretation Comments U Preg (test code = U Negative (09/18/2011 N Preg) 10:30:00) [facility]JnsvdgeTKQCEVGZHD8969-05-13 15:30:00 Test Item Value Reference Range Interpretation Comments UA WBC (test code = UA None Seen (09/18/2011 N WBC) 10:30:00) [facility] TempleGxvkkrzZLFTCKPVKY6977-28-85 15:30:00 Test Item Value Reference Range Interpretation Comments UA RBC (test None Seen See_Comment N [Automated mes pastor] code = UA RBC) (09/18/2011 The system wh ich 10:30:00) generated this result transmitted ref erence range: <=2. The reference range was not used to int erpret this result as normal/abnormal . [facility] TempleZojcykyMRRFBYYMPB7871-46-50 15:30:00 Test Item Value Reference Range Interpretation Comments UA Bacteria (test code = None Seen (09/18/2011 N UA Bacteria) 10:30:00) [facility] WorthYzjtkyyRKUIMFLGJL4013-90-38 15:30:00 Test Item Value Reference Range Interpretation Comments UA Amorph Destiny (test Few /HPF A code = UA Amorph Destiny) *ABN*(09/18/2011 10:30:00) [facility] WorthUtqpfwhUATDIQNKXF1724-34-10 15:30:00 Test Item Value Reference Range Interpretation Comments Micro? (test code = Performed (09/18/2011 N Micro?) 10:30:00) [facility] WorthEjzoeooSVQXICSUQB5856-59-72 15:30:00 Test Item Value Reference Range Interpretation Comments UA Sq Epi (test code = Rare /LPF (09/18/2011 N UA Sq Epi) 10:30:00) [facility]gczrvpYYFEVJUBON1787-27-96 15:30:00 Test Item Value Reference Range Interpretation Comments UA Ketones (test code = 15 mg/dL A UA Ketones) *ABN*(09/18/2011 10:30:00) [facility] WorthMowivimGTMUTXZSEF4962-25-40 15:30:00 Test Item Value Reference Range Interpretation Comments UA Glucose (test code = >=1000 mg/dL A UA Glucose) *ABN*(09/18/2011 10:30:00) [facility] HospitalDaurljsHSLUTCNKRL9291-37-50 15:30:00 Test Item Value Reference Range Interpretation Comments UA Protein (test code = Trace A UA Protein) *ABN*(09/18/2011 10:30:00) [facility] WorthWxqmlzlGYCZFAXBMA8612-36-64 15:30:00 Test Item Value Reference Range Interpretation Comments UA Urobilinogen (test code = UA 0.2 0.1-1.0 N Urobilinogen) [facility] WorthCjcjznzZDIUKSQLMB8300-73-77 15:30:00 Test Item Value Reference Range Interpretation Comments UA Blood (test code = Negative (09/18/2011 N UA Blood) 10:30:00) [facility] WorthMsbrnupDLMOVHXRMV1357-00-23 15:30:00 Test Item Value Reference Range Interpretation Comments UA Bili (test code = Negative *NA*(09/18/2011 UA Bili) 10:30:00) [facility]UsvsauwWWTUWZAOUE4294-03-30 15:30:00 Test Item Value Reference Range Interpretation Comments UA Leuk Est (test Negative (09/18/2011 N code = UA Leuk Est) 10:30:00) [facility] TempleTewezxpHKHGHTZNMQ1243-83-55 15:30:00 Test Item Value Reference Range Interpretation Comments UA Nitrite (test code Negative (09/18/2011 N = UA Nitrite) 10:30:00) [facility] WorthQmtudbgGPAYWAZPFE5789-23-70 15:30:00 Test Item Value Reference Range Interpretation Comments UA pH (test code = UA pH) 7.5 1 5.0-8.0 N [facility] WorthJgudiwfWXLMCFDXKI4429-21-57 15:30:00 Test Item Value Reference Range Interpretation Comments UA Spec Grav (test code = UA Spec 1.010 1 N Grav) [facility] WorthJpnyvttBUQORUXPPX8330-66-53 15:30:00 Test Item Value Reference Range Interpretation Comments UA Turbidity (test code Slight Cloudy N = UA Turbidity) (09/18/2011 10:30:00) [facility] HospitalCnlezmaQNVLIXSPMZ9020-82-40 15:30:00 Test Item Value Reference Range Interpretation Comments UA Color (test code = Yellow *NA*(09/18/2011 UA Color) 10:30:00) [facility] CenterVrmguslKUMLIEIFZ7544-71-34 14:07:00 Test Item Value Reference Range Interpretation Comments Phosphorus (test code = Phosphorus) 4.4 2.5-4.5 N [facility] CenterYjqbjmkMOFAGLTFG8420-33-46 14:07:00 Test Item Value Reference Range Interpretation Comments Magnesium Lvl (test code = Magnesium 1.6 1.8-2.4 L Lvl) [facility] GLUCOSE FFTEDYT9079-88-62 14:01:00 Test Item Value Reference Range Interpretation Comments Gluc POC Lifscn (test code = Gluc POC no gt 70-99 A Lifscn) [facility] CenterConjmbxSXVYAEXUV8286-71-32 13:52:00 Test Item Value Reference Range Interpretation Comments pO2 Roberth (test code = pO2 Roberth) 24 20-49 N [facility] CenterOiekvwaRORDODEXE1323-92-30 13:52:00 Test Item Value Reference Range Interpretation Comments HCO3 Roberth (test code = HCO3 Roberth) 32.0 22.0-26.0 H [facility] CenterAumxnhiETTFHSGGR2368-23-13 13:52:00 Test Item Value Reference Range Interpretation Comments pCO2 Roberth (test code = pCO2 Roberth) 44 38-52 N [facility] CenterEnriddhHABYZYWOO9118-38-13 13:52:00 Test Item Value Reference Range Interpretation Comments BE Roberth (test code = 7 See_Comment H [Automa rohit message] The BE Roberth) system which ge nerated this result transmit rohit reference range : <=2. The reference range was not used to interpr et this result as reji l/abnormal. [facility] CenterOwnrhjlUORPXJXDZ8515-54-67 13:52:00 Test Item Value Reference Range Interpretation Comments O2 Sat Roberth (test code = O2 Sat Roberth) 48.0 40.0-70.0 N [facility] CenterNyasrznJIWOGCFRP8153-98-44 13:52:00 Test Item Value Reference Range Interpretation Comments Temp Roberth (test code = Temp Roberth) 37.0 [facility] CenterHmzeisaIMUZHCWLZ3098-14-98 13:52:00 Test Item Value Reference Range Interpretation Comments pH Roberth (test code = pH Roberth) 7.47 7.28-7.42 H [facility] CenterDhbhwvcJBLGEFHUH2034-90-62 13:52:00 Test Item Value Reference Range Interpretation Comments Calcium Lvl (test code = Calcium Lvl) 10.1 8.5-10.5 N [facility] CenterOyxkpfgNYKXBNMKW4110-40-84 13:52:00 Test Item Value Reference Range Interpretation Comments Chloride Lvl (test code = Chloride Lvl) 92 95-109 L [facility] CenterCmoodkeJYGIIUZDE7484-64-04 13:52:00 Test Item Value Reference Range Interpretation Comments CO2 (test code = CO2) 30 24-32 N [facility] CenterJsbzestVEOVUBSWX5778-92-17 13:52:00 Test Item Value Reference Range Interpretation Comments Potassium Lvl (test code = Potassium 3.5 3.5-5.1 N Lvl) [facility] CenterUrzjruhZZAUFQOPL1931-58-21 13:52:00 Test Item Value Reference Range Interpretation Comments Sodium Lvl (test code = Sodium Lvl) 133 135-145 L [facility] CenterYnvbbcaATZQTPMEK8477-84-99 13:52:00 Test Item Value Reference Range Interpretation Comments Creatinine Lvl (test code = Creatinine 1.3 0.5-1.4 N Lvl) [facility] CenterHzboiglPZYCTYOZX2522-27-74 13:52:00 Test Item Value Reference Range Interpretation Comments Glucose Lvl (test code = Glucose Lvl) 383 70-99 H [facility] CenterOhfetecCUGESFLHW4514-20-73 13:52:00 Test Item Value Reference Range Interpretation Comments BUN (test code = BUN) 17 7-22 N [facility] CenterMmeuaegETVORACXA0171-53-65 13:52:00 Test Item Value Reference Range Interpretation Comments AGAP (test code = AGAP) 14.5 10.0-20.[address] CenterHccsvrwXONUPMIXTP4072-40-30 13:52:00 Test Item Value Reference Range Interpretation Comments MPV (test code = MPV) 12.0 7.4-10.[address] [facility] CenterCqgxwpvRGSWLALVXQ0491-46-09 13:52:00 Test Item Value Reference Range Interpretation Comments Platelet (test code = Platelet) 226 133-[address] [facility] CenterRxgbohnYRSMTTWHYP7939-46-24 13:52:00 Test Item Value Reference Range Interpretation Comments MCHC (test code = MCHC) 33.7 32.0-36.[address] CenterJeohxqsLFHIXQYMGJ9524-37-81 13:52:00 Test Item Value Reference Range Interpretation Comments MCH (test code = MCH) 28.5 pg 27.0-31.[address] CenterEocliyuXLRPMCPSFY0583-90-04 13:52:00 Test Item Value Reference Range Interpretation Comments RDW (test code = RDW) 15.1 11.5-14.[address] [facility] CenterCcmxlfiNSVLOGOORO2220-97-87 13:52:00 Test Item Value Reference Range Interpretation Comments MCV (test code = MCV) 84.6 81.0-99.[address] CenterJkluhwqYHGCCXBZMG4491-84-23 13:52:00 Test Item Value Reference Range Interpretation Comments Hct (test code = Hct) 36.4 36.0-48.[address] CenterAdrquumFVYSPIJNZR9227-66-71 13:52:00 Test Item Value Reference Range Interpretation Comments Hgb (test code = Hgb) 12.3 12.0-16.[address] [facility] CenterYklqhaxXNIGEENECL3378-62-68 13:52:00 Test Item Value Reference Range Interpretation Comments RBC (test code = RBC) 4.30 4.20-5.[address] CenterCqumusbHZEEUFNLXF7836-87-70 13:52:00 Test Item Value Reference Range Interpretation Comments WBC (test code = WBC) 11.7 3.7-10.[address] CenterLfodrbsPOISUFHPZU8409-53-58 13:52:00 Test Item Value Reference Range Interpretation Comments Monocytes (test code = Monocytes) 2.9 2.0-12.[address] [facility] CenterSmzrxueIFFSVPWYLL8844-98-64 13:52:00 Test Item Value Reference Range Interpretation Comments Eosinophils (test code = 0.2 See_Comment N [A utomated message] The Eosinophils) system which ge nerated this result tra nsmitted reference range : <=4.0. The reference r leo was not used to int erpret this result as normal/abnormal . [facility] CenterWdbgdilPHBDPUGKJY5268-46-43 13:52:00 Test Item Value Reference Range Interpretation Comments Basophils (test code = 0.0 See_Comment N [Aut omated message] The Basophils) system which ge nerated this result tra nsmitted reference range : <=1.0. The reference r leo was not used to int erpret this result as normal/abnormal . [facility] CenterLrcxwvzAGLLPYXRUU0483-06-32 13:52:00 Test Item Value Reference Range Interpretation Comments Eosinophils # (test code 0.0 See_Comment N [A utomated message] The = Eosinophils #) system whic h generated this result tra nsmitted reference range : <=0.5. The reference r leo was not used to int erpret this result as normal/abnormal . [facility] CenterIecyomsWOKRKIYXTG5669-74-84 13:52:00 Test Item Value Reference Range Interpretation Comments Monocytes # (test code 0.3 See_Comment N [Aut omated message] The = Monocytes #) system which generated this result tra nsmitted reference range : <=0.8. The reference r leo was not used to int erpret this result as normal/abnormal . [facility] CenterZozavnqBPUVYVMMLW3725-45-65 13:52:00 Test Item Value Reference Range Interpretation Comments Segs (test code = Segs) 92.0 45.0-75.[address] [facility] CenterKigmdfhKVEOLIGPHK3424-17-37 13:52:00 Test Item Value Reference Range Interpretation Comments Lymphocytes (test code = Lymphocytes) 4.9 20.0-40.[address] [facility] CenterNonyylxVCBAEJMBKF9958-84-95 13:52:00 Test Item Value Reference Range Interpretation Comments Spherocyte (test code = Rare A Spherocyte) *ABN*(09/18/2011 08:52:00) [facility] CenterHfwfdciIPLXHGLCGV8807-03-49 13:52:00 Test Item Value Reference Range Interpretation Comments Large Plt (test code = Slight *ABN*(09/18/2011 A Large Plt) 08:52:00) [facility] CenterAzcwrvsLAGJRYKYRK8527-03-21 13:52:00 Test Item Value Reference Range Interpretation Comments Microcyte (test code = 1+ *ABN*(09/18/2011 A Microcyte) 08:52:00) [facility] CenterZyothkqGOFODIZEWT3734-91-33 13:52:00 Test Item Value Reference Range Interpretation Comments Schistocyte (test code = Schistocyte) Rare [facility] CenterKhrytarZXIRTZJOFB4905-30-38 13:52:00 Test Item Value Reference Range Interpretation Comments Macrocyte (test code = 1+ *ABN*(09/18/2011 A Macrocyte) 08:52:00) [facility] CenterZdszmwbQZUWZMMJBG8638-21-17 13:52:00 Test Item Value Reference Range Interpretation Comments Lymphocytes # (test code = Lymphocytes 0.6 1.0-5.5 L #) [facility] CenterSynfutvRIGSYPWEQL9822-12-43 13:52:00 Test Item Value Reference Range Interpretation Comments Segs-Bands # (test code = Segs-Bands #) 10.8 1.5-8.[address] CenterWtsznvaHZMHEEANXA0145-42-95 13:52:00 Test Item Value Reference Range Interpretation Comments Basophils # (test code 0.0 See_Comment N [Aut omated message] The = Basophils #) system which generated this result tra nsmitted reference range : <=0.2. The reference r leo was not used to int erpret this result as normal/abnormal . [facility] CenterUrqkpqgQKTHXCYAEV9093-36-50 13:52:00 Test Item Value Reference Range Interpretation Comments Anisocyte (test code = 1+ *ABN*(09/18/2011 A Anisocyte) 08:52:00) [facility] TempleWczknphEUAIJFYHUX0181-47-48 13:52:00 Test Item Value Reference Range Interpretation Comments CDC-HIV 1/2 Ab (test Negative *NA*(09/18/2011 code = CDC-HIV 1/2 08:52:00) Ab) [facility] QVVBJPL9266-60-56 17:34:00 Test Item Value Reference Range Interpretation Comments Gluc POC Lifscn (test code = Gluc POC 215 70-99 H Lifscn) [facility] GLUCOSE DGHURLQ8821-38-46 17:34:00 Test Item Value Reference Range Interpretation Comments Comment1 (test code = Comment1) Notify RN/ [facility] GLUCOSE EWSIUYL6280-14-86 11:43:00 Test Item Value Reference Range Interpretation Comments Comment1 (test code = Comment1) Notify RN/ [facility] GLUCOSE SFUDIBT4344-63-92 11:43:00 Test Item Value Reference Range Interpretation Comments Gluc POC Lifscn (test code = Gluc POC 91 65-110 N Lifscn) [facility] GLUCOSE JJDPBSR9226-16-75 02:45:00 Test Item Value Reference Range Interpretation Comments Comment1 (test code = Comment1) Notify RN/ [facility] GLUCOSE TVKDRKV3353-57-56 02:45:00 Test Item Value Reference Range Interpretation Comments Gluc POC Lifscn (test code = Gluc POC 148 65-110 H Lifscn) [facility] CenterQvcdrtbOOBBHSSKW6481-67-31 08:47:00 Test Item Value Reference Range Interpretation Comments Sodium Lvl (test code = Sodium Lvl) 143 135-145 N [facility] CenterIbfipgnSVJGREWKE5110-32-51 08:47:00 Test Item Value Reference Range Interpretation Comments Glucose Lvl (test code = Glucose Lvl) 105 [facility] CenterPqtxmalJFWDWHVLD0942-68-48 08:47:00 Test Item Value Reference Range Interpretation Comments CO2 (test code = CO2) 29 24-32 N [facility] CenterUggzgkaMWAJIBNBI7504-77-97 08:47:00 Test Item Value Reference Range Interpretation Comments Chloride Lvl (test code = Chloride Lvl) 103 95-109 N [facility] CenterHjxdmpcFWQUCTCJS0952-65-19 08:47:00 Test Item Value Reference Range Interpretation Comments BUN (test code = BUN) 10 7-22 N [facility] CenterWpxkyygKYTWBSQDN4997-84-02 08:47:00 Test Item Value Reference Range Interpretation Comments Potassium Lvl (test code = Potassium 3.8 3.5-5.1 N Lvl) [facility] CenterOyiobldRXKNARDSN0724-01-45 08:47:00 Test Item Value Reference Range Interpretation Comments Creatinine Lvl (test code = Creatinine 0.6 0.5-1.4 N Lvl) [facility] CenterFjgyqxxOUZQXZIYP6505-70-20 08:47:00 Test Item Value Reference Range Interpretation Comments Calcium Lvl (test code = Calcium Lvl) 8.5 8.5-10.5 N [facility] CenterYisbgxpOJXPLNMAM4712-41-29 08:47:00 Test Item Value Reference Range Interpretation Comments AGAP (test code = AGAP) 14.8 10.0-20.[address] [facility] CenterLoyhnckBMNGFVSAMN9892-52-35 08:47:00 Test Item Value Reference Range Interpretation Comments MCH (test code = MCH) 28.9 pg 27.0-31.[address] [facility] CenterRljhmkqGKGNDTAGEH2564-81-64 08:47:00 Test Item Value Reference Range Interpretation Comments MCV (test code = MCV) 82.1 81.0-99.[address] [facility] CenterFikxdioXQRKUHROKZ7291-18-08 08:47:00 Test Item Value Reference Range Interpretation Comments Hct (test code = Hct) 25.9 36.0-48.[address] CenterLpqnuzuWPCXLXNNVP5598-91-50 08:47:00 Test Item Value Reference Range Interpretation Comments Platelet (test code = Platelet) 233 133-[address] [facility] CenterAschapvNCJIVKJKJD9043-36-80 08:47:00 Test Item Value Reference Range Interpretation Comments RDW (test code = RDW) 14.5 11.5-14.[address] [facility] CenterWxrodymHNMVLQQESU0780-72-29 08:47:00 Test Item Value Reference Range Interpretation Comments MCHC (test code = MCHC) 35.2 32.0-36.[address] CenterPniulauQHIKKJWTVT4275-74-85 08:47:00 Test Item Value Reference Range Interpretation Comments Hgb (test code = Hgb) 9.1 12.0-16.[address] [facility] CenterWfkpgioCVXDTMJHYM2404-50-93 08:47:00 Test Item Value Reference Range Interpretation Comments RBC (test code = RBC) 3.15 4.20-5.[address] CenterOthomijQGHNHKIKZM8219-66-04 08:47:00 Test Item Value Reference Range Interpretation Comments MPV (test code = MPV) 9.0 7.4-10.[address] CenterXbnsqsuSXWYNZXOAX5613-78-05 08:47:00 Test Item Value Reference Range Interpretation Comments WBC (test code = WBC) 6.3 3.7-10.[address] CenterHshxdjgBLGACNUBEF9125-94-20 08:47:00 Test Item Value Reference Range Interpretation Comments Eosinophils # (test code 0.0 See_Comment N [A utomated message] The = Eosinophils #) system whic h generated this result tra nsmitted reference range : <=0.5. The reference r leo was not used to int erpret this result as normal/abnormal . [facility] CenterLtllkphMUKLGWIPRM8364-40-10 08:47:00 Test Item Value Reference Range Interpretation Comments Basophils # (test code 0.0 See_Comment N [Aut omated message] The = Basophils #) system which generated this result tra nsmitted reference range : <=0.2. The reference r leo was not used to int erpret this result as normal/abnormal . [facility] CenterXqgkpcyYASVRMNSTQ2265-07-50 08:47:00 Test Item Value Reference Range Interpretation Comments Segs-Bands # (test code = Segs-Bands #) 3.8 1.5-8.[address] [facility] CenterGgehhguPUHBHAZWRR9463-02-61 08:47:00 Test Item Value Reference Range Interpretation Comments Lymphocytes # (test code = Lymphocytes 2.0 1.0-5.5 N #) [facility] CenterWxnbynmDYTKEHNICB2719-83-77 08:47:00 Test Item Value Reference Range Interpretation Comments Basophils (test code = 0.5 See_Comment N [Aut omated message] The Basophils) system which ge nerated this result tra nsmitted reference range : <=1.0. The reference r leo was not used to int erpret this result as normal/abnormal . [facility] CenterNxkzdlrHOJVCOQWVU5457-04-59 08:47:00 Test Item Value Reference Range Interpretation Comments Eosinophils (test code = 0.7 See_Comment N [A utomated message] The Eosinophils) system which ge nerated this result tra nsmitted reference range : <=4.0. The reference r leo was not used to int erpret this result as normal/abnormal . [facility] CenterIrnazlkAQLNNLHMHB4911-21-64 08:47:00 Test Item Value Reference Range Interpretation Comments Monocytes (test code = Monocytes) 6.2 2.0-12.[address] [facility] CenterZflnbtlOQUFDQZBUG6731-24-14 08:47:00 Test Item Value Reference Range Interpretation Comments Segs (test code = Segs) 61.1 45.0-75.[address] CenterThjbhrqPQPLXNBTZY0301-33-56 08:47:00 Test Item Value Reference Range Interpretation Comments Lymphocytes (test code = Lymphocytes) 31.5 20.0-40.[address] CenterJhoxrqoRNRMBUPOPT3561-73-96 08:47:00 Test Item Value Reference Range Interpretation Comments Monocytes # (test code 0.4 See_Comment N [Aut omated message] The = Monocytes #) system which generated this result tra nsmitted reference range : <=0.8. The reference r leo was not used to int erpret this result as normal/abnormal . [facility] CenterVxwwywxCMOKSQTZU1328-57-86 10:54:00 Test Item Value Reference Range Interpretation Comments CO2 (test code = CO2) 27 24-32 N [facility] CenterJodacuaMTRIBBVOE5574-35-60 10:54:00 Test Item Value Reference Range Interpretation Comments Chloride Lvl (test code = Chloride Lvl) 104 95-109 N [facility] CenterYmbynrtZVRUQCVRJ1092-41-77 10:54:00 Test Item Value Reference Range Interpretation Comments Creatinine Lvl (test code = Creatinine 0.5 0.5-1.4 N Lvl) [facility] CenterOcitajiXWVPDLXLN3104-79-50 10:54:00 Test Item Value Reference Range Interpretation Comments BUN (test code = BUN) 10 7-22 N [facility] CenterIeacbhwITYXDTHTD4793-91-54 10:54:00 Test Item Value Reference Range Interpretation Comments Potassium Lvl (test code = Potassium 4.1 3.5-5.1 N Lvl) [facility] CenterRgxuzuwBMYJNKOFL3689-17-04 10:54:00 Test Item Value Reference Range Interpretation Comments Sodium Lvl (test code = Sodium Lvl) 141 135-145 N [facility] CenterGowusnaNMUOFDNHV8326-16-23 10:54:00 Test Item Value Reference Range Interpretation Comments Glucose Lvl (test code = Glucose Lvl) 83 [facility] CenterKjnnqpcLNDUDGQFL6782-28-57 10:54:00 Test Item Value Reference Range Interpretation Comments Calcium Lvl (test code = Calcium Lvl) 8.4 8.5-10.5 L [facility] CenterKmcschrOQNGCMUGK7060-58-59 10:54:00 Test Item Value Reference Range Interpretation Comments AGAP (test code = AGAP) 14.1 10.0-20.[address] [facility] CenterPssivalNOHEVAFXOM3450-65-86 10:54:00 Test Item Value Reference Range Interpretation Comments Hct (test code = Hct) 35.5 36.0-48.[address] [facility] CenterHaukxtvWTLEGSFOFV1665-88-70 10:54:00 Test Item Value Reference Range Interpretation Comments WBC (test code = WBC) 4.7 3.7-10.[address] [facility] CenterBwwribuEOXEYTKZWQ1879-91-37 10:54:00 Test Item Value Reference Range Interpretation Comments MCV (test code = MCV) 92.6 81.0-99.[address] [facility] CenterUgisvijXLXXHLZVMC6750-87-65 10:54:00 Test Item Value Reference Range Interpretation Comments MCH (test code = MCH) 31.4 pg 27.0-31.[address] CenterQpdyqzmQCCDQPIOVF2996-88-35 10:54:00 Test Item Value Reference Range Interpretation Comments RBC (test code = RBC) 3.84 4.20-5.[address] [facility] CenterXankwauTTZACVEIKY6775-29-79 10:54:00 Test Item Value Reference Range Interpretation Comments Hgb (test code = Hgb) 12.1 12.0-16.[address] [facility] CenterSckwatlLDNNHMFHFW6204-83-16 10:54:00 Test Item Value Reference Range Interpretation Comments Platelet (test code = Platelet) 287 133-[address] [facility] CenterOxulfzxONGNLYGHJA7549-74-46 10:54:00 Test Item Value Reference Range Interpretation Comments RDW (test code = RDW) 12.7 11.5-14.[address] [facility] CenterQjoftjvHTVYVQTUWS1451-02-34 10:54:00 Test Item Value Reference Range Interpretation Comments MCHC (test code = MCHC) 33.9 32.0-36.[address] [facility] CenterBpophwuXPQGNTKKIP4666-80-37 10:54:00 Test Item Value Reference Range Interpretation Comments MPV (test code = MPV) 7.2 7.4-10.[address] [facility] CenterAaumtqdRMMFKAXXLQ3739-95-73 10:54:00 Test Item Value Reference Range Interpretation Comments INR (test code = INR) 0.95 0.85-1.[address] [facility] CenterNmovdsgXBGQKJRIAX5241-26-65 10:54:00 Test Item Value Reference Range Interpretation Comments PT (test code = PT) 12.7 s 12.0-14.[address] CenterZjihqftQBFXSTDOZH8188-57-07 10:54:00 Test Item Value Reference Range Interpretation Comments PTT (test code = PTT) 28.5 s 22.9-35.[address] [facility] CenterCqysgjrRTDAJQLGSV0807-15-66 10:54:00 Test Item Value Reference Range Interpretation Comments Eosinophils # (test code 0.1 See_Comment N [A utomated message] The = Eosinophils #) system whic h generated this result tra nsmitted reference range : <=0.5. The reference r leo was not used to int erpret this result as normal/abnormal . [facility] CenterNxutpglLVJYJGWCGF5893-58-72 10:54:00 Test Item Value Reference Range Interpretation Comments Basophils # (test code 0.0 See_Comment N [Aut omated message] The = Basophils #) system which generated this result tra nsmitted reference range : <=0.2. The reference r leo was not used to int erpret this result as normal/abnormal . [facility] CenterHfxuvbiTZBHPTFVFY0145-56-24 10:54:00 Test Item Value Reference Range Interpretation Comments Basophils (test code = 0.4 See_Comment N [Aut omated message] The Basophils) system which ge nerated this result tra nsmitted reference range : <=1.0. The reference r leo was not used to int erpret this result as normal/abnormal . [facility] CenterXcbmhjtMQZNMHVKZA3625-38-39 10:54:00 Test Item Value Reference Range Interpretation Comments Segs-Bands # (test code = Segs-Bands #) 2.1 1.5-8.[address] [facility] CenterVoqocyyNTGLIJVSIA9721-04-33 10:54:00 Test Item Value Reference Range Interpretation Comments Monocytes (test code = Monocytes) 9.0 2.0-12.[address] [facility] CenterRwpjknwAWWWPHVDRL2436-11-57 10:54:00 Test Item Value Reference Range Interpretation Comments Eosinophils (test code = 2.4 See_Comment N [A utomated message] The Eosinophils) system which ge nerated this result tra nsmitted reference range : <=4.0. The reference r leo was not used to int erpret this result as normal/abnormal . [facility] CenterKreovcsVXMXMGIFHV9835-55-31 10:54:00 Test Item Value Reference Range Interpretation Comments Monocytes # (test code 0.4 See_Comment N [Aut omated message] The = Monocytes #) system which generated this result tra nsmitted reference range : <=0.8. The reference r leo was not used to int erpret this result as normal/abnormal . [facility] CenterVrucodoGENPPBOMRL0172-10-52 10:54:00 Test Item Value Reference Range Interpretation Comments Lymphocytes # (test code = Lymphocytes 2.0 1.0-5.5 N #) [facility] CenterWkatxijQMSUPDFGPG0715-58-62 10:54:00 Test Item Value Reference Range Interpretation Comments Lymphocytes (test code = Lymphocytes) 42.8 20.0-40.[address] CenterBbpazskNHASQJVKIZ5334-47-43 10:54:00 Test Item Value Reference Range Interpretation Comments Segs (test code = Segs) 45.4 45.0-75.0 N [facility] CenterJzargsoATDOIQEQY0792-47-77 10:02:00 Test Item Value Reference Range Interpretation Comments Chloride Lvl (test code = Chloride Lvl) 105 95-109 N [facility] CenterOjzmqzsZUZGMZFJR2056-54-77 10:02:00 Test Item Value Reference Range Interpretation Comments Potassium Lvl (test code = Potassium 4.1 3.5-5.1 N Lvl) [facility] CenterRmjxxdkRIRJJBBWE3393-42-22 10:02:00 Test Item Value Reference Range Interpretation Comments Sodium Lvl (test code = Sodium Lvl) 143 135-145 N [facility] CenterLbnjshpQKVKLLYIK0632-78-95 10:02:00 Test Item Value Reference Range Interpretation Comments CO2 (test code = CO2) 29 24-32 N [facility] CenterPmkipafMBHVRHLTJ3234-26-03 10:02:00 Test Item Value Reference Range Interpretation Comments Calcium Lvl (test code = Calcium Lvl) 8.7 8.5-10.5 N [facility] CenterRmjqfymBQRQPIWJH2352-18-54 10:02:00 Test Item Value Reference Range Interpretation Comments BUN (test code = BUN) 6 7-22 L [facility] CenterAlvwsltLOXEMKEID5216-48-98 10:02:00 Test Item Value Reference Range Interpretation Comments Creatinine Lvl (test code = Creatinine 0.6 0.5-1.4 N Lvl) [facility] CenterMafqysnCBYTZBNCD9759-64-00 10:02:00 Test Item Value Reference Range Interpretation Comments Glucose Lvl (test code = Glucose Lvl) 118 [facility] CenterZkqmfytJQJXLFNPK6714-13-82 10:02:00 Test Item Value Reference Range Interpretation Comments AGAP (test code = AGAP) 13.1 10.0-20.[address] [facility] CenterTpklmhkUOFRAOUGJA2834-01-40 10:02:00 Test Item Value Reference Range Interpretation Comments Basophils # (test code 0.0 See_Comment N [Aut omated message] The = Basophils #) system which generated this result tra nsmitted reference range : <=0.2. The reference r leo was not used to int erpret this result as normal/abnormal . [facility] CenterAxzglrrQUPHXNMIDK5876-19-30 10:02:00 Test Item Value Reference Range Interpretation Comments Monocytes # (test code 0.3 See_Comment N [Aut omated message] The = Monocytes #) system which generated this result tra nsmitted reference range : <=0.8. The reference r leo was not used to int erpret this result as normal/abnormal . [facility] CenterSragogeAJMXNGNDII9192-67-84 10:02:00 Test Item Value Reference Range Interpretation Comments Eosinophils # (test code 0.1 See_Comment N [A utomated message] The = Eosinophils #) system whic h generated this result tra nsmitted reference range : <=0.5. The reference r leo was not used to int erpret this result as normal/abnormal . [facility] CenterFduwpinMNZZWSRVVG9132-74-82 10:02:00 Test Item Value Reference Range Interpretation Comments Segs-Bands # (test code = Segs-Bands #) 2.8 1.5-8.[address] CenterAxapytvSIIFJYBRCD0046-75-60 10:02:00 Test Item Value Reference Range Interpretation Comments Lymphocytes # (test code = Lymphocytes 1.7 1.0-5.5 N #) [facility] CenterAefzkmiXKJWYDHGOC0941-13-41 10:02:00 Test Item Value Reference Range Interpretation Comments Basophils (test code = 0.6 See_Comment N [Aut omated message] The Basophils) system which ge nerated this result tra nsmitted reference range : <=1.0. The reference r leo was not used to int erpret this result as normal/abnormal . [facility] CenterUcwqysqWDBJNGYDOD8611-65-35 10:02:00 Test Item Value Reference Range Interpretation Comments Monocytes (test code = Monocytes) 6.9 2.0-12.[address] [facility] CenterZaxqlafZTXNKFZGVF2762-79-42 10:02:00 Test Item Value Reference Range Interpretation Comments Eosinophils (test code = 2.0 See_Comment N [A utomated message] The Eosinophils) system which ge nerated this result tra nsmitted reference range : <=4.0. The reference r leo was not used to int erpret this result as normal/abnormal . [facility] CenterBmpoyvbFMDDGBOGWA5474-15-99 10:02:00 Test Item Value Reference Range Interpretation Comments Segs (test code = Segs) 55.8 45.0-75.[address] [facility] CenterGubbzquCCHUYESTQV7582-29-72 10:02:00 Test Item Value Reference Range Interpretation Comments Lymphocytes (test code = Lymphocytes) 34.7 20.0-40.[address] [facility] CenterVvtumenCIHKIOYRLW9503-08-66 10:02:00 Test Item Value Reference Range Interpretation Comments PTT (test code = PTT) 32.2 s 22.9-35.[address] [facility] CenterYtsghzwREQETJWOOE3679-93-31 10:02:00 Test Item Value Reference Range Interpretation Comments PT (test code = PT) 13.3 s 12.0-14.[address] [facility] CenterNgqbbirYYYZZCSVSI6931-13-62 10:02:00 Test Item Value Reference Range Interpretation Comments INR (test code = INR) 1.01 0.85-1.[address] [facility] CenterVupdjjrSERXJULIKT1711-64-28 10:02:00 Test Item Value Reference Range Interpretation Comments Hct (test code = Hct) 27.5 36.0-48.[address] [facility] CenterKlvujpfDKRODSCFQR0671-48-66 10:02:00 Test Item Value Reference Range Interpretation Comments RBC (test code = RBC) 3.34 4.20-5.[address] [facility] CenterBgphnlmOYIQXGDPZD5454-52-73 10:02:00 Test Item Value Reference Range Interpretation Comments Hgb (test code = Hgb) 9.7 12.0-16.[address] [facility] CenterTzagwgqVLAJZYCNZO5431-75-02 10:02:00 Test Item Value Reference Range Interpretation Comments WBC (test code = WBC) 5.0 3.7-10.[address] [facility] CenterHvufmfvVEVGFAOTAB1238-44-46 10:02:00 Test Item Value Reference Range Interpretation Comments MPV (test code = MPV) 9.2 7.4-10.[address] [facility] CenterUqwmzoxMFSEZOJNLP6027-64-61 10:02:00 Test Item Value Reference Range Interpretation Comments Platelet (test code = Platelet) 240 133-[address] [facility] CenterPztlexkVEFNJUVLVN1853-39-84 10:02:00 Test Item Value Reference Range Interpretation Comments RDW (test code = RDW) 14.3 11.5-14.[address] [facility] CenterUeuiebnFQWUDMMAYF6505-79-73 10:02:00 Test Item Value Reference Range Interpretation Comments MCHC (test code = MCHC) 35.2 32.0-36.[address] [facility] CenterCjycfqjAAIHDLKRLB8306-50-92 10:02:00 Test Item Value Reference Range Interpretation Comments MCH (test code = MCH) 28.9 pg 27.0-31.[address] CenterEmyrijzFCTPAHYJJQ1988-19-37 10:02:00 Test Item Value Reference Range Interpretation Comments MCV (test code = MCV) 82.1 81.0-99.0 N [facility] CenterPguxfheVQVUJKOCQ7554-19-47 09:24:00 Test Item Value Reference Range Interpretation Comments Magnesium Lvl (test code = Magnesium 2.1 1.8-2.4 N Lvl) [facility]TezxtudHfvfywqhjehm0377-99-13 00:32:00 Test Item Value Reference Range Interpretation Comments Culture: Aspirate/Body Fluid/Tissue (test code = Culture: Aspirate/Body Fluid/Tissue) [facility] HospitalDlvvkidEvufyzmyewcp5218-25-17 00:32:00 Test Item Value Reference Range Interpretation Comments Culture: Anaerobic (test code = Culture: Anaerobic) [facility] CenterWgjmnukIYTEOZFFV1469-10-44 17:10:00 Test Item Value Reference Range Interpretation Comments Temp Roberth (test code = Temp Roberth) 37.0 [facility] CenterYjcjwrwHSDJHXNKW9509-40-80 17:10:00 Test Item Value Reference Range Interpretation Comments O2 Sat Roberth (test code = O2 Sat Roberth) 27.0 40.0-70.0 L [facility] CenterPsazxlhHSQAKPBRO8843-91-62 17:10:00 Test Item Value Reference Range Interpretation Comments pCO2 Roberth (test code = pCO2 Roberth) 47 38-52 N [facility] CenterMrhkamfEBQWKMLGT2882-40-09 17:10:00 Test Item Value Reference Range Interpretation Comments pH Roberth (test code = pH Roberth) 7.37 7.28-7.42 N [facility] CenterOkvqlmlSJYJIFWIP4899-52-84 17:10:00 Test Item Value Reference Range Interpretation Comments BE Roberth (test code = 1 See_Comment N [Automa rohit message] The BE Roberth) system which ge nerated this result transmit rohit reference range : <=2. The reference range was not used to interpr et this result as reji l/abnormal. [facility] CenterWiaapvsTBOPUXFNZ9635-58-85 17:10:00 Test Item Value Reference Range Interpretation Comments HCO3 Roberth (test code = HCO3 Roberth) 27.2 22.0-26.0 H [facility] CenterDcfgofaKSJCCSRHU5884-47-07 17:10:00 Test Item Value Reference Range Interpretation Comments pO2 Roberth (test code = pO2 Roberth) 19 20-49 L [facility] HospitalJwlkncfNddoalvcezao8002-55-72 14:18:00 Test Item Value Reference Range Interpretation Comments Culture: Blood (test code = Culture: Blood) [facility] HospitalYitwpfaQywwtqbrlyeo4384-63-96 14:18:00 Test Item Value Reference Range Interpretation Comments Culture: Wound/Abscess w/Gram Stain (test code = Culture: Wound/Abscess w/Gram Stain) [facility] CenterDjhxqxnZCGLGERTO0957-63-02 13:09:00 Test Item Value Reference Range Interpretation Comments Lactic Acid Lvl (test code = Lactic 1.0 0.5-2.2 N Acid Lvl) [facility] CenterJoffxzmUQWBTUQSU0235-29-20 12:20:00 Test Item Value Reference Range Interpretation Comments U Preg (test code = U Negative (09/01/2011 N Preg) 07:20:00) [facility]AslkvxfPWIYUKDMFP9132-44-76 12:20:00 Test Item Value Reference Range Interpretation Comments UA Sq Epi (test code Occasional /LPF N = UA Sq Epi) (09/01/2011 07:20:00) [facility]RrpdnmiYUPUIVSKRW1751-00-22 12:20:00 Test Item Value Reference Range Interpretation Comments UA Leuk Est (test Negative (09/01/2011 N code = UA Leuk Est) 07:20:00) [facility] TempleYjvmuafIMWCIXPAXK9975-62-79 12:20:00 Test Item Value Reference Range Interpretation Comments UA Nitrite (test code Negative (09/01/2011 N = UA Nitrite) 07:20:00) [facility] WorthFirpftmABGELWYKOS2088-79-97 12:20:00 Test Item Value Reference Range Interpretation Comments UA Urobilinogen (test code = UA 0.2 0.1-1.0 N Urobilinogen) [facility] WorthCxdrorpDSJRYTPEJY6657-39-69 12:20:00 Test Item Value Reference Range Interpretation Comments UA Blood (test code = Negative (09/01/2011 N UA Blood) 07:20:00) [facility] WorthWwfdeihBGOFURVVXF9362-80-97 12:20:00 Test Item Value Reference Range Interpretation Comments UA Ketones (test code = >=80 mg/dL A UA Ketones) *ABN*(09/01/2011 07:20:00) [facility] WorthUwimlbbHOLVEGQFGN0022-83-20 12:20:00 Test Item Value Reference Range Interpretation Comments UA Protein (test code Negative (09/01/2011 N = UA Protein) 07:20:00) [facility] WorthFtmbxieROYTFNJWPZ5293-24-23 12:20:00 Test Item Value Reference Range Interpretation Comments UA pH (test code = UA pH) 6.0 1 5.0-8.0 N [facility] WorthZuwrhegDRDXCNTBKS7480-19-91 12:20:00 Test Item Value Reference Range Interpretation Comments UA Bili (test code = Negative (09/01/2011 N UA Bili) 07:20:00) [facility] WorthKkxbmprTGSKIXGFPF1262-95-52 12:20:00 Test Item Value Reference Range Interpretation Comments UA Glucose (test code = >=1000 mg/dL A UA Glucose) *ABN*(09/01/2011 07:20:00) [facility] WorthPgjeblsTGVINBQBNH9716-43-95 12:20:00 Test Item Value Reference Range Interpretation Comments UA Spec Grav (test code = UA Spec 1.035 1 H Grav) [facility] WorthVydwxtePNXMWPPIKE5038-89-77 12:20:00 Test Item Value Reference Range Interpretation Comments UA Turbidity (test code = Clear (09/01/2011 N UA Turbidity) 07:20:00) [facility] WorthIidsqejUEKMWJTIDR4044-23-56 12:20:00 Test Item Value Reference Range Interpretation Comments UA Color (test code = Yellow *NA*(09/01/2011 UA Color) 07:20:00) [facility] CenterFoncvllQJQMCLZJS9424-19-59 08:00:00 Test Item Value Reference Range Interpretation Comments Lactic Acid Lvl (test code = Lactic 2.8 0.5-2.2 H Acid Lvl) [facility] CenterOztijvtKVLNTQSQV7920-41-27 07:47:00 Test Item Value Reference Range Interpretation Comments Magnesium Lvl (test code = Magnesium 1.5 1.8-2.4 L Lvl) [facility] CenterIsteyagGZZXQGCQBA4449-90-59 07:47:00 Test Item Value Reference Range Interpretation Comments Polychrom (test code = Slight (09/01/2011 N Polychrom) 02:47:00) [facility] CenterNthtifnAKDWGGWTOM7644-64-75 07:47:00 Test Item Value Reference Range Interpretation Comments Anisocyte (test code = 1+ *ABN*(09/01/2011 A Anisocyte) 02:47:00) [facility] CenterWhsphjgYEPXAKGMNT0815-86-02 07:47:00 Test Item Value Reference Range Interpretation Comments Large Plt (test code = Slight *ABN*(09/01/2011 A Large Plt) 02:47:00) [facility] CenterOagehwbHORWTXXZSS1369-80-04 07:47:00 Test Item Value Reference Range Interpretation Comments Tear Cell (test code = Tear Cell) Occasional [facility] CenterHgbdetuCWLQBJDPEY9934-43-80 07:47:00 Test Item Value Reference Range Interpretation Comments Elliptocyte (test code = Slight A Elliptocyte) *ABN*(09/01/2011 02:47:00) [facility] GLUCOSE OTXICWW4874-93-53 17:02:00 Test Item Value Reference Range Interpretation Comments Comment1 (test code = Comment1) Notify TABATHA/ [facility] GLUCOSE LEBGUYI0269-66-28 17:02:00 Test Item Value Reference Range Interpretation Comments Gluc POC Lifscn (test code = Gluc POC 134 65-110 H Lifscn) [facility] GLUCOSE EHNAAMM6409-81-80 13:45:00 Test Item Value Reference Range Interpretation Comments Gluc POC Lifscn (test code = Gluc POC 182 65-110 H Lifscn) [facility] GLUCOSE GIJBSDA5682-50-33 13:45:00 Test Item Value Reference Range Interpretation Comments Comment1 (test code = Comment1) Notify TABATHA/ [facility] CenterChdhhtfEBEFXXNMM9023-37-95 10:22:00 Test Item Value Reference Range Interpretation Comments Phosphorus (test code = Phosphorus) 3.0 2.5-4.5 N [facility] CenterSaerdsnDOGABOUUX2600-35-75 10:22:00 Test Item Value Reference Range Interpretation Comments Magnesium Lvl (test code = Magnesium 1.8 1.8-2.4 N Lvl) [facility] CenterUwjniznKCABSMQXG6783-33-52 10:22:00 Test Item Value Reference Range Interpretation Comments Chloride Lvl (test code = Chloride Lvl) 107 95-109 N [facility] CenterXpaidxxDEVVWUYYB4788-53-69 10:22:00 Test Item Value Reference Range Interpretation Comments Potassium Lvl (test code = Potassium 3.0 3.5-5.1 A Lvl) [facility] CenterXtczsbcKMUJQFIHD0423-66-59 10:22:00 Test Item Value Reference Range Interpretation Comments Sodium Lvl (test code = Sodium Lvl) 141 135-145 N [facility] CenterXfsythtONRQHMGNV1484-14-10 10:22:00 Test Item Value Reference Range Interpretation Comments Creatinine Lvl (test code = Creatinine 0.6 0.5-1.4 N Lvl) [facility] CenterFrdkkqxCQTUHWQQE5408-40-65 10:22:00 Test Item Value Reference Range Interpretation Comments CO2 (test code = CO2) 23 24-32 L [facility] CenterVfonzzbRWHYSSOVA2866-27-43 10:22:00 Test Item Value Reference Range Interpretation Comments Calcium Lvl (test code = Calcium Lvl) 7.3 8.5-10.5 L [facility] [facility]WnliurbQXIZFSDWF4527-17-18 10:22:00 Test Item Value Reference Range Interpretation Comments Glucose Lvl (test code = Glucose Lvl) 136 [facility] CenterUxjjsswHIMQDQPQK9333-28-76 10:22:00 Test Item Value Reference Range Interpretation Comments AGAP (test code = AGAP) 14.0 10.0-20.0 N [facility] CenterZjmynapAYLGIOMXP2833-26-01 10:22:00 Test Item Value Reference Range Interpretation Comments BUN (test code = BUN) 5 7-[address] [facility] CenterIejjjjhZQMHYLNHUP2793-47-78 10:22:00 Test Item Value Reference Range Interpretation Comments Segs (test code = Segs) 69.6 45.0-75.[address] [facility] CenterFkaqvvyTXGGFYWAKC9969-29-14 10:22:00 Test Item Value Reference Range Interpretation Comments Lymphocytes (test code = Lymphocytes) 21.5 20.0-40.[address] [facility] CenterEbcxymcZVCNTUVGZT8544-92-23 10:22:00 Test Item Value Reference Range Interpretation Comments Monocytes (test code = Monocytes) 7.6 2.0-12.[address] [facility] CenterXcthpvkDSYVTXKRHT9664-38-40 10:22:00 Test Item Value Reference Range Interpretation Comments Eosinophils (test code = 1.0 See_Comment N [A utomated message] The Eosinophils) system which ge nerated this result tra nsmitted reference range : <=4.0. The reference r leo was not used to int erpret this result as normal/abnormal . [facility] CenterXnsfkolNSSVHZZDDW8041-60-72 10:22:00 Test Item Value Reference Range Interpretation Comments Basophils (test code = 0.3 See_Comment N [Aut omated message] The Basophils) system which ge nerated this result tra nsmitted reference range : <=1.0. The reference r leo was not used to int erpret this result as normal/abnormal . [facility] CenterYyzplilJSUKGWOMFS9973-69-94 10:22:00 Test Item Value Reference Range Interpretation Comments Segs-Bands # (test code = Segs-Bands #) 4.8 1.5-8.[address] [facility] CenterYkycvmrBKGHFBVIQB6377-54-34 10:22:00 Test Item Value Reference Range Interpretation Comments Eosinophils # (test code 0.1 See_Comment N [A utomated message] The = Eosinophils #) system wh h generated this result tra nsmitted reference range : <=0.5. The reference r leo was not used to int erpret this result as normal/abnormal . [facility] CenterJnljtquXSUKZWQHZQ5987-76-47 10:22:00 Test Item Value Reference Range Interpretation Comments Lymphocytes # (test code = Lymphocytes 1.5 1.0-5.5 N #) [facility] CenterEwnojpkEZLGDKOPQZ1913-49-58 10:22:00 Test Item Value Reference Range Interpretation Comments Monocytes # (test code 0.5 See_Comment N [Aut omated message] The = Monocytes #) system which generated this result tra nsmitted reference range : <=0.8. The reference r leo was not used to int erpret this result as normal/abnormal . [facility] CenterMazagraMDENQWWLGI5088-46-21 10:22:00 Test Item Value Reference Range Interpretation Comments Basophils # (test code 0.0 See_Comment N [Aut omated message] The = Basophils #) system which generated this result tra nsmitted reference range : <=0.2. The reference r leo was not used to int erpret this result as normal/abnormal . [facility] CenterFikvybuAJLNPCQGFA5562-44-99 10:22:00 Test Item Value Reference Range Interpretation Comments MPV (test code = MPV) 11.0 7.4-10.[address] [facility] CenterAwntpahQQOFFUXNIF1389-95-59 10:22:00 Test Item Value Reference Range Interpretation Comments Platelet (test code = Platelet) 161 133-[address] [facility] CenterWytgbtzOLOIVSNGJF5529-37-42 10:22:00 Test Item Value Reference Range Interpretation Comments MCH (test code = MCH) 29.6 pg 27.0-31.[address] [facility] CenterQoxlvbqINHPBJYMVY8313-60-49 10:22:00 Test Item Value Reference Range Interpretation Comments MCHC (test code = MCHC) 35.4 32.0-36.[address] [facility] CenterYuosotsTMOHVEMSCO7162-39-48 10:22:00 Test Item Value Reference Range Interpretation Comments RDW (test code = RDW) 14.1 11.5-14.[address] [facility] CenterMdeeiynCRVHBRAEZL6788-62-75 10:22:00 Test Item Value Reference Range Interpretation Comments WBC (test code = WBC) 6.8 3.7-10.[address] [facility] CenterDnukotmTKPGTNBUEZ0466-66-93 10:22:00 Test Item Value Reference Range Interpretation Comments MCV (test code = MCV) 83.5 81.0-99.[address] [facility] CenterCtkpemrUTAWNDPBMQ6890-74-38 10:22:00 Test Item Value Reference Range Interpretation Comments RBC (test code = RBC) 4.44 4.20-5.[address] [facility] CenterYnmtphjOSUMHEFEVB9121-42-35 10:22:00 Test Item Value Reference Range Interpretation Comments Hgb (test code = Hgb) 13.1 12.0-16.[address] [facility] CenterDnzazhyDTWXRHLKZV0551-30-67 10:22:00 Test Item Value Reference Range Interpretation Comments Hct (test code = Hct) 37.1 36.0-48.0 N [facility] GLUCOSE DODABNT9433-89-23 02:20:00 Test Item Value Reference Range Interpretation Comments Comment1 (test code = Comment1) Notify RN/MD [facility] GLUCOSE OKVISTW9053-35-25 02:20:00 Test Item Value Reference Range Interpretation Comments Gluc POC Lifscn (test code = Gluc POC 332 65-110 H Lifscn) [facility] CenterGggtprqWMSJTGQYG0008-46-25 09:47:00 Test Item Value Reference Range Interpretation Comments Phosphorus (test code = Phosphorus) 2.5 2.5-4.5 N [facility] CenterMeesgcjPCXCOUKJT6744-17-94 09:47:00 Test Item Value Reference Range Interpretation Comments Glucose Lvl (test code = Glucose Lvl) 201 [facility] CenterBrutxvoDYDJOJEJC3294-96-48 09:47:00 Test Item Value Reference Range Interpretation Comments BUN (test code = BUN) 7 7-22 N [facility] CenterUkkxyufMJQFPEUPM5120-50-30 09:47:00 Test Item Value Reference Range Interpretation Comments CO2 (test code = CO2) 19 24-32 L [facility] CenterAjfplflMPQKTYKZK5953-39-97 09:47:00 Test Item Value Reference Range Interpretation Comments Creatinine Lvl (test code = Creatinine 0.3 0.5-1.4 L Lvl) [facility] CenterBpqpppdJJOMYYYQS5714-51-16 09:47:00 Test Item Value Reference Range Interpretation Comments Sodium Lvl (test code = Sodium Lvl) 137 135-145 N [facility] CenterGrjisxtOWBONERNR2016-11-69 09:47:00 Test Item Value Reference Range Interpretation Comments Chloride Lvl (test code = Chloride Lvl) 103 95-109 N [facility] CenterXchsuxeGOFEXCHDA7808-54-22 09:47:00 Test Item Value Reference Range Interpretation Comments Potassium Lvl (test code = Potassium 3.6 3.5-5.1 N Lvl) [facility] CenterDxserpbUERHCCXJK0288-32-36 09:47:00 Test Item Value Reference Range Interpretation Comments Calcium Lvl (test code = Calcium Lvl) 7.9 8.5-10.5 L [facility] CenterLhlbuceQOFBURVQX2833-43-33 09:47:00 Test Item Value Reference Range Interpretation Comments AGAP (test code = AGAP) 18.6 10.0-20.0 N [facility] CenterNtqtftcUUAQUBAEH8506-58-67 09:47:00 Test Item Value Reference Range Interpretation Comments Magnesium Lvl (test code = Magnesium 1.6 1.8-2.4 L Lvl) [facility] CenterRnzxbawPYIJMNLDMA4102-97-40 09:47:00 Test Item Value Reference Range Interpretation Comments Basophils # (test code 0.0 See_Comment N [Aut omated message] The = Basophils #) system which generated this result tra nsmitted reference range : <=0.2. The reference r leo was not used to int erpret this result as normal/abnormal . [facility] CenterCupdngdVEIQAKQYZK6719-96-91 09:47:00 Test Item Value Reference Range Interpretation Comments Eosinophils (test code = 0.4 See_Comment N [A utomated message] The Eosinophils) system which ge nerated this result tra nsmitted reference range : <=4.0. The reference r leo was not used to int erpret this result as normal/abnormal . [facility] CenterDdgorzuTUROYRSHKA7781-33-29 09:47:00 Test Item Value Reference Range Interpretation Comments Basophils (test code = 0.5 See_Comment N [Aut omated message] The Basophils) system which ge nerated this result tra nsmitted reference range : <=1.0. The reference r leo was not used to int erpret this result as normal/abnormal . [facility] CenterKscmmrkVKDYNWJTZT3984-47-33 09:47:00 Test Item Value Reference Range Interpretation Comments Segs-Bands # (test code = Segs-Bands #) 5.9 1.5-8.[address] [facility] CenterGeozeysBYPSYPCLQL3153-93-22 09:47:00 Test Item Value Reference Range Interpretation Comments Lymphocytes # (test code = Lymphocytes 1.2 1.0-5.5 N #) [facility] CenterTtygmwwEBCTFRGZDD8936-18-36 09:47:00 Test Item Value Reference Range Interpretation Comments Monocytes # (test code 0.5 See_Comment N [Aut omated message] The = Monocytes #) system which generated this result tra nsmitted reference range : <=0.8. The reference r leo was not used to int erpret this result as normal/abnormal . [facility] CenterWzxirkoKTETTYNMSQ5125-25-36 09:47:00 Test Item Value Reference Range Interpretation Comments Eosinophils # (test code 0.0 See_Comment N [A utomated message] The = Eosinophils #) system whic h generated this result tra nsmitted reference range : <=0.5. The reference r leo was not used to int erpret this result as normal/abnormal . [facility] CenterGdwttfzRGLUQFNRZF6883-71-49 09:47:00 Test Item Value Reference Range Interpretation Comments Segs (test code = Segs) 76.9 45.0-75.[address] [facility] CenterOdonesgEEALOKPVYN2248-42-33 09:47:00 Test Item Value Reference Range Interpretation Comments Lymphocytes (test code = Lymphocytes) 15.9 20.0-40.[address] [facility] CenterOaudkdrHRSMEHSTOT7543-49-09 09:47:00 Test Item Value Reference Range Interpretation Comments Monocytes (test code = Monocytes) 6.3 2.0-12.[address] [facility] CenterCynjjgpFCAAFOTRYZ9340-92-89 09:47:00 Test Item Value Reference Range Interpretation Comments MCV (test code = MCV) 82.8 81.0-99.[address] [facility] CenterXwrysiwCEODOXSHOV9066-43-64 09:47:00 Test Item Value Reference Range Interpretation Comments Hct (test code = Hct) 39.7 36.0-48.[address] [facility] CenterKbhmftgAXHTTZQMFU1934-07-29 09:47:00 Test Item Value Reference Range Interpretation Comments MCH (test code = MCH) 29.1 pg 27.0-31.[address] [facility] CenterUexqnliUCIOJJLPTU3767-52-43 09:47:00 Test Item Value Reference Range Interpretation Comments Hgb (test code = Hgb) 14.0 12.0-16.[address] [facility] CenterNcftulqBFJHLWZGCD5000-39-65 09:47:00 Test Item Value Reference Range Interpretation Comments MCHC (test code = MCHC) 35.2 32.0-36.[address] [facility] CenterSdypyesQXOSPBUWJM8488-71-76 09:47:00 Test Item Value Reference Range Interpretation Comments RDW (test code = RDW) 13.9 11.5-14.[address] [facility] CenterGduycsdYZAKBIPCLZ5650-35-42 09:47:00 Test Item Value Reference Range Interpretation Comments Platelet (test code = Platelet) 160 133-[address] [facility] CenterLgrddwkOGQJNHKELV9580-96-00 09:47:00 Test Item Value Reference Range Interpretation Comments MPV (test code = MPV) 11.9 7.4-10.[address] [facility] CenterQmmdrpuUKYBGZVOSJ6718-98-02 09:47:00 Test Item Value Reference Range Interpretation Comments WBC (test code = WBC) 7.7 3.7-10.[address] [facility] CenterDndetxjBVKLRVMZIY5923-24-25 09:47:00 Test Item Value Reference Range Interpretation Comments RBC (test code = RBC) 4.80 4.20-5.40 N [facility] CenterYfvoksvFEJAUZGLB8596-66-54 10:28:00 Test Item Value Reference Range Interpretation Comments Phosphorus (test code = Phosphorus) 2.6 2.5-4.5 N [facility] CenterYnmwdnyBMWUKXWLJ8319-49-20 10:28:00 Test Item Value Reference Range Interpretation Comments Magnesium Lvl (test code = Magnesium 1.8 1.8-2.4 N Lvl) [facility] CenterBtjyxtuIDPDHWKHZ1778-94-01 10:28:00 Test Item Value Reference Range Interpretation Comments Potassium Lvl (test code = Potassium 3.7 3.5-5.1 N Lvl) [facility] CenterRffdhbjSSIHATICM6427-99-71 10:28:00 Test Item Value Reference Range Interpretation Comments Sodium Lvl (test code = Sodium Lvl) 137 135-145 N [facility] CenterYpjhxpoIZJCTQYLU7160-78-39 10:28:00 Test Item Value Reference Range Interpretation Comments Creatinine Lvl (test code = Creatinine 0.6 0.5-1.4 N Lvl) [facility] CenterPyttitkSYOBNRHGH7730-62-84 10:28:00 Test Item Value Reference Range Interpretation Comments BUN (test code = BUN) 16 7-22 N [facility] CenterUcjjmmnOQZDBEXYY8781-20-44 10:28:00 Test Item Value Reference Range Interpretation Comments Glucose Lvl (test code = Glucose Lvl) 200 [facility] CenterCgtdsboVLCFAASFD4821-11-06 10:28:00 Test Item Value Reference Range Interpretation Comments Calcium Lvl (test code = Calcium Lvl) 8.3 8.5-10.5 L [facility] CenterFuajcyoMHZPDYGHQ7991-21-92 10:28:00 Test Item Value Reference Range Interpretation Comments AGAP (test code = AGAP) 19.7 10.0-20.0 N [facility] CenterArkxhycKAWDNOWDT2709-89-48 10:28:00 Test Item Value Reference Range Interpretation Comments Chloride Lvl (test code = Chloride Lvl) 99 95-109 N [facility] CenterDxmvxbwPTYFSZHXY5025-29-04 10:28:00 Test Item Value Reference Range Interpretation Comments CO2 (test code = CO2) 22 24-[address] [facility] CenterLqsuqstKMZUMKSMQO9265-65-16 10:28:00 Test Item Value Reference Range Interpretation Comments Platelet (test code = Platelet) 172 133-[address] [facility] CenterTxfabvuZKSGFJOCXV6951-02-17 10:28:00 Test Item Value Reference Range Interpretation Comments MPV (test code = MPV) 12.0 7.4-10.[address] [facility] CenterCkylyqbPCTBTMMOWR8368-76-84 10:28:00 Test Item Value Reference Range Interpretation Comments WBC (test code = WBC) 7.3 3.7-10.[address] [facility] CenterKzdhogiPKWBLMPTMI1825-05-60 10:28:00 Test Item Value Reference Range Interpretation Comments RDW (test code = RDW) 14.6 11.5-14.[address] [facility] CenterLthdmyaIQFYBHJAIT6763-15-81 10:28:00 Test Item Value Reference Range Interpretation Comments MCHC (test code = MCHC) 35.0 32.0-36.[address] [facility] CenterRnluytiEZYBKBGOOT4239-01-42 10:28:00 Test Item Value Reference Range Interpretation Comments RBC (test code = RBC) 4.54 4.20-5.[address] [facility] CenterZesboxkGGGEEZMVGN5009-40-20 10:28:00 Test Item Value Reference Range Interpretation Comments Hct (test code = Hct) 37.6 36.0-48.[address] [facility] CenterHycxnkrDSNPMCEAZO3962-81-92 10:28:00 Test Item Value Reference Range Interpretation Comments MCV (test code = MCV) 82.9 81.0-99.[address] [facility] CenterTlcrnapIWFTBSKCLX5609-27-39 10:28:00 Test Item Value Reference Range Interpretation Comments MCH (test code = MCH) 29.0 pg 27.0-31.[address] [facility] CenterQncnlwaTZFJMZURKL7181-86-26 10:28:00 Test Item Value Reference Range Interpretation Comments Hgb (test code = Hgb) 13.2 12.0-16.[address] [facility] CenterZtaaileRGBEZGAOCZ1889-86-28 10:28:00 Test Item Value Reference Range Interpretation Comments Elliptocyte (test code = Slight A Elliptocyte) *ABN*(08/21/2011 04:28:00) [facility] CenterLczbajlGLNIQZSZRH3100-49-78 10:28:00 Test Item Value Reference Range Interpretation Comments Polychrom (test code = Slight (08/21/2011 N Polychrom) 04:28:00) [facility] CenterGobjrzcYTEFMRWBQL1837-64-07 10:28:00 Test Item Value Reference Range Interpretation Comments Basophils # (test code 0.0 See_Comment N [Aut omated message] The = Basophils #) system which generated this result tra nsmitted reference range : <=0.2. The reference r leo was not used to int erpret this result as normal/abnormal . [facility] CenterLqcdxgpEURKORNIEH1702-63-56 10:28:00 Test Item Value Reference Range Interpretation Comments Hypochrom (test code = Slight (08/21/2011 N Hypochrom) 04:28:00) [facility] CenterDmxkmhmUZVLFXPRQD5008-46-31 10:28:00 Test Item Value Reference Range Interpretation Comments Monocytes # (test code 0.6 See_Comment N [Aut omated message] The = Monocytes #) system which generated this result tra nsmitted reference range : <=0.8. The reference r leo was not used to int erpret this result as normal/abnormal . [facility] CenterClobtorRRFGBSAXZU2499-88-41 10:28:00 Test Item Value Reference Range Interpretation Comments Eosinophils # (test code 0.0 See_Comment N [A utomated message] The = Eosinophils #) system whic h generated this result tra nsmitted reference range : <=0.5. The reference r leo was not used to int erpret this result as normal/abnormal . [facility] CenterRiprkoiZFFLNVDLBH5509-96-20 10:28:00 Test Item Value Reference Range Interpretation Comments Segs-Bands # (test code = Segs-Bands #) 5.3 1.5-8.[address] [facility] CenterYvxdlxeMMCSDWGFRW1117-02-58 10:28:00 Test Item Value Reference Range Interpretation Comments Lymphocytes # (test code = Lymphocytes 1.3 1.0-5.5 N #) [facility] CenterKyveobxKOKYAKAKAI1968-13-82 10:28:00 Test Item Value Reference Range Interpretation Comments Basophils (test code = 0.5 See_Comment N [Aut omated message] The Basophils) system which ge nerated this result tra nsmitted reference range : <=1.0. The reference r leo was not used to int erpret this result as normal/abnormal . [facility] CenterCrdornvFKDWWIHOYL4803-50-82 10:28:00 Test Item Value Reference Range Interpretation Comments Monocytes (test code = Monocytes) 8.5 2.0-12.[address] [facility] CenterHywxsygLMRBVKWYRG8535-27-17 10:28:00 Test Item Value Reference Range Interpretation Comments Eosinophils (test code = 0.3 See_Comment N [A utomated message] The Eosinophils) system which ge nerated this result tra nsmitted reference range : <=4.0. The reference r leo was not used to int erpret this result as normal/abnormal . [facility] CenterYrdemzqDQOZBDPQSB6251-25-53 10:28:00 Test Item Value Reference Range Interpretation Comments Lymphocytes (test code = Lymphocytes) 17.3 20.0-40.[address] [facility] CenterMbeybpwNQBIEYVKXK8968-93-31 10:28:00 Test Item Value Reference Range Interpretation Comments Segs (test code = Segs) 73.4 45.0-75.0 N [facility] GLUCOSE CUZUUUT9367-13-80 07:47:00 Test Item Value Reference Range Interpretation Comments Comment2 (test code = Comment2) Verify w/Lab [facility] CenterFzljfjbDIYEBKXJI0666-59-47 21:58:00 Test Item Value Reference Range Interpretation Comments S Preg (test code = S Negative (08/19/2011 N Preg) 15:58:00) [facility] CenterCllokonBARHMSTWR6428-49-20 21:58:00 Test Item Value Reference Range Interpretation Comments Lipase Lvl (test code = Lipase Lvl) 169 73-393 N [facility] CenterOqxkojzWYJHQIRJL5553-31-78 21:58:00 Test Item Value Reference Range Interpretation Comments ALT (test code = ALT) 54 See_Comment N [Auto mated message] The system which ge nerated this result transmit rohit reference range : <=65. The reference range was not used to interpr et this result as reji l/abnormal. [facility] CenterKpiyxmxRBEMUGZVN4907-68-03 21:58:00 Test Item Value Reference Range Interpretation Comments Alk Phos (test code = Alk Phos) 110 39-136 N [facility] CenterGazdxagKYGGPJJLG6809-11-00 21:58:00 Test Item Value Reference Range Interpretation Comments Bili Direct (test code 0.1 See_Comment N [Aut omated message] The = Bili Direct) system which generated this result tra nsmitted reference range : <=0.3. The reference r leo was not used to int erpret this result as reji l/abnormal. [facility] CenterWeddpebRQBOEPMEF7104-69-15 21:58:00 Test Item Value Reference Range Interpretation Comments Bili Total (test code = Bili Total) 0.9 0.2-1.3 N [facility]DwwoafpCXVQXLFFH2723-09-86 21:58:00 Test Item Value Reference Range Interpretation Comments Albumin Lvl (test code = Albumin Lvl) 4.4 3.5-5.0 N [facility] CenterXdlxdfzLOESLANSR4688-72-40 21:58:00 Test Item Value Reference Range Interpretation Comments Total Protein (test code = Total 8.8 6.4-8.4 H Protein) [facility] CenterEotddlpJICVEKRWR7498-31-22 21:58:00 Test Item Value Reference Range Interpretation Comments Bili Indirect (test 0.8 See_Comment N [Automa rohit message] The code = Bili Indirect) system which generated this result tra nsmitted reference range : <=1.0. The reference r leo was not used to int erpret this result as normal/abnormal . [facility] CenterQhxhbynDFBGVTYFP0222-57-78 21:58:00 Test Item Value Reference Range Interpretation Comments AST (test code = AST) 36 See_Comment N [Auto mated message] The system which ge nerated this result transmit rohit reference range : <=37. The reference range was not used to interpr et this result as reji l/abnormal. [facility] CenterLmwfpwkCRZQMFCOA9790-44-31 21:58:00 Test Item Value Reference Range Interpretation Comments Globulin (test code = Globulin) 4.4 2.0-4.0 H [facility] CenterLkdtdfzSPAWSBOSD4908-30-41 21:58:00 Test Item Value Reference Range Interpretation Comments A/G Ratio (test code = A/G Ratio) 1.0 0.7-1.6 N [facility] HospitalDdunbcfWWCTRUBSKL8443-69-58 21:58:00 Test Item Value Reference Range Interpretation Comments UA Bacteria (test code Occasional /HPF N = UA Bacteria) (08/19/2011 15:58:00) [facility]tfxmduSBDNZKQAEJ6905-57-17 21:58:00 Test Item Value Reference Range Interpretation Comments UA RBC (test 3-5 /HPF See_Comment A [Automated mes pastor] code = UA RBC) *ABN*(08/19/2011 The syste m which 15:58:00) generated this result transmitted ref erence range: <=2. The reference range was not used to int erpret this result as normal/abnormal . [facility] WorthMgsatewFKMFCWYEYT0456-42-90 21:58:00 Test Item Value Reference Range Interpretation Comments UA WBC (test code = 3 See_Comment [Automa rohit message] The UA WBC) system which ge nerated this result transmit rohit reference range : <=5. The reference range was not used to interpr et this result as reji l/abnormal. [facility]DgosjkrREKNCPFMNE6251-77-23 21:58:00 Test Item Value Reference Range Interpretation Comments UA Mucus (test code = Few /LPF (08/19/2011 N UA Mucus) 15:58:00) [facility] WorthQwvytqiKNDPSHRSMF0713-46-43 21:58:00 Test Item Value Reference Range Interpretation Comments UA Amorph Destiny (test Occasional /HPF A code = UA Amorph *ABN*(08/19/2011 Destiny) 15:58:00) [facility] HospitalYhcqxrvQPYTWAFYML4819-64-88 21:58:00 Test Item Value Reference Range Interpretation Comments UA Urobilinogen (test code = UA 0.2 0.1-1.0 N Urobilinogen) [facility] WorthTspkpvrKUADTEDPPO6872-58-21 21:58:00 Test Item Value Reference Range Interpretation Comments UA Sq Epi (test code = Rare /LPF (08/19/2011 N UA Sq Epi) 15:58:00) [facility] WorthElqdcnjYTRRUNOUQH6796-15-72 21:58:00 Test Item Value Reference Range Interpretation Comments Micro? (test code = Performed (08/19/2011 N Micro?) 15:58:00) [facility] WorthRpwxyenJWWNIJHMIP7506-80-85 21:58:00 Test Item Value Reference Range Interpretation Comments UA Leuk Est (test Negative (08/19/2011 N code = UA Leuk Est) 15:58:00) [facility] TempleDcxigbxEIIXEUOQYL2563-22-96 21:58:00 Test Item Value Reference Range Interpretation Comments UA Nitrite (test code Negative (08/19/2011 N = UA Nitrite) 15:58:00) [id number] 21:58:00 Test Item Value Reference Range Interpretation Comments UA pH (test code = UA pH) 5.5 1 5.0-8.0 N [facility] Wor[id number] 21:58:00 Test Item Value Reference Range Interpretation Comments UA Blood (test code = Trace *ABN*(08/19/2011 A UA Blood) 15:58:00) [id number] 21:58:00 Test Item Value Reference Range Interpretation Comments UA Bili (test code = Negative (08/19/2011 N UA Bili) 15:58:00) [id number] 21:58:00 Test Item Value Reference Range Interpretation Comments UA Ketones (test code = 80 mg/dL A UA Ketones) *ABN*(08/19/2011 15:58:00) [facility]ArqkpzqXJTWBNGKXY7272-83-90 21:58:00 Test Item Value Reference Range Interpretation Comments UA Glucose (test code = >=1000 mg/dL A UA Glucose) *ABN*(08/19/2011 15:58:00) [facility] HospitalXbhdlhwAZLFUPGNEC7468-89-05 21:58:00 Test Item Value Reference Range Interpretation Comments UA Protein (test code Negative (08/19/2011 N = UA Protein) 15:58:00) [facility] Hospit[id number] 21:58:00 Test Item Value Reference Range Interpretation Comments UA Turbidity (test code Slight Cloudy N = UA Turbidity) (08/19/2011 15:58:00) [facility] Hospit[id number] 21:58:00 Test Item Value Reference Range Interpretation Comments UA Spec Grav (test code = UA Spec 1.025 1 Grav) [facility] H[id number] 21:58:00 Test Item Value Reference Range Interpretation Comments UA Color (test code = Yellow (08/19/2011 N UA Color) 15:58:00) [id number] 21:13:00 Test Item Value Reference Range Interpretation Comments AST (test code = AST) 23 See_Comment N [Auto mated message] The system which ge nerated this result transmit rohit reference range : <=37. The reference range was not used to interpr et this result as reji l/abnormal. [facility] Cen[id number] 21:13:00 Test Item Value Reference Range Interpretation Comments Bili Total (test code = Bili Total) 1.0 0.2-1.3 N [facility] CenterNpkhlthOHUCOEDER9790-45-60 21:13:00 Test Item Value Reference Range Interpretation Comments Alk Phos (test code = Alk Phos) 115 39-136 N [facility] Cen[id number] 21:13:00 Test Item Value Reference Range Interpretation Comments ALT (test code = ALT) 56 See_Comment N [Auto mated message] The system which ge nerated this result transmit rohit reference range : <=65. The reference range was not used to interpr et this result as reji l/abnormal. [facility] CenterXwqkulvILKWLTMYO0884-48-53 21:13:00 Test Item Value Reference Range Interpretation Comments Total Protein (test code = Total 9.0 6.4-8.4 H Protein) [facility] CenterMlnnlzxPYORNTZGM5048-76-93 21:13:00 Test Item Value Reference Range Interpretation Comments Albumin Lvl (test code = Albumin Lvl) 4.8 3.5-5.0 N [facility] CenterBrrazmgCGDFWFYMP5240-57-70 21:13:00 Test Item Value Reference Range Interpretation Comments Globulin (test code = Globulin) 4.2 2.0-4.0 H [facility] CenterFbsnsoqQCMVJCVKU9471-20-31 21:13:00 Test Item Value Reference Range Interpretation Comments A/G Ratio (test code = A/G Ratio) 1.1 0.7-1.6 N [facility] CenterQpiytnsQEHLXWPLD1690-24-47 21:13:00 Test Item Value Reference Range Interpretation Comments B/C Ratio (test code = B/C Ratio) 30 6-[address] [facility] CenterWrlhhiuEKCCSNMYKO4847-25-23 21:13:00 Test Item Value Reference Range Interpretation Comments RBC Morph (test code = Normal (08/19/2011 N RBC Morph) 15:13:00) [facility] Cent[id number] 21:13:00 Test Item Value Reference Range Interpretation Comments Large Plt (test code = Slight *ABN*(08/19/2011 A Large Plt) 15:13:00) [facility] Cent[id number] 21:13:00 Test Item Value Reference Range Interpretation Comments Atypical Lymphs (test code = Atypical 0.0 N Lymphs) [facility] CenterQfwbekpVHYFBBWIRJ9644-13-88 21:13:00 Test Item Value Reference Range Interpretation Comments Bands (test code = 0.0 See_Comment N [Automat ed message] The Bands) system which ge nerated this result transmit rohit reference range : <=11.0. The reference r leo was not used to interpr et this result as reji l/abnormal. [facility] Cen[id number] 21:10:00 Test Item Value Reference Range Interpretation Comments O2 Sat Roberth (test code = O2 Sat Roberth) 74.0 40.0-70.0 H [facility] Cen[id number] 21:10:00 Test Item Value Reference Range Interpretation Comments Temp Roberth (test code = Temp Roberth) 37.0 [facility] Cen[id number] 21:10:00 Test Item Value Reference Range Interpretation Comments pO2 Roberth (test code = pO2 Roebrth) 42 20-49 N [facility] Cen[id number] 21:10:00 Test Item Value Reference Range Interpretation Comments HCO3 Roberth (test code = HCO3 Roberth) 17.3 22.0-26.0 L [facility] Cen[id number] 21:10:00 Test Item Value Reference Range Interpretation Comments pH Roberth (test code = pH Roberth) 7.34 7.28-7.42 N [facility] CenterAuafuylHKGNDHIAT8609-29-91 21:10:00 Test Item Value Reference Range Interpretation Comments pCO2 Roberth (test code = pCO2 Roberth) 32 38-52 L [facility] CenterNsskgxiMAVXNSZKN7785-09-66 21:10:00 Test Item Value Reference Range Interpretation Comments BE Roberth (test code = -7 See_Comment L [Automa rohit message] The BE Roberth) system which ge nerated this result transmit rohit reference range : <=2. The reference range was not used to interpr et this result as reji l/abnormal. [id number] 20:34:00 Test Item Value Reference Range Interpretation Comments CDC-HIV 1/2 Ab (test Negative *NA*(08/19/2011 code = CDC-HIV 1/2 14:34:00) Ab) [facility]
[2022-03-15 17:26] LABS: Urine Blood Trace-intact (Negative); Urine Glucose 1+ (Negative); Urine Protein 3+ (Negative); Urine pH 8.5 (5.0-7.0)
[2022-03-15 17:48] LABS: Absolute Lymphocytes (CBC) 1.3 K/uL (0.7-4.9); Hematocrit 37.5 % (36.0-45.0); Lymphocytes % 21.4 % (15.3-44.8); MCV 88.6 fL (80-100); MPV 9.3 fL (7.6-11.3); RBC Red Blood Cell Count 4.23 M/uL (3.86-4.86)
[2022-03-15] MEDS ORDERED: MEPERIDINE HCL 50 MG/ML ONE (17:56)
[2022-03-15] MEDS ORDERED: NA CHLORIDE 0.9% 250 ML ONE (17:57)
[2022-03-15] MEDS ORDERED: ONDANSETRON 4 MG/2 ML VIAL ONE ×2 (17:58→18:42)
[2022-03-15 18:04] LABS: Albumin 3.5 g/dL (3.4-5.0); Bilirubin Total 0.4 mg/dL (0.2-1.0); Protein, Total 7.4 g/dL (6.4-8.2)
[2022-03-15 18:07] LABS: Potassium 5.6 mmol/L (3.5-5.1)
--- NOTE | 2022-03-15 18:26 | EDPHYS ---
Physician Documentation [facility] Name: Cathi Zaldivar Age: 41 yrs Sex: Female : 1980 Arrival Date: 03/15/2022 Time: 16:48 Bed 18 Private MD: Jose Miguel Morin ED Physician Dinesh Stallworth HPI: 03/15 17:11 This 41 yrs old Female presents to ER via Wheelchair with complaints of rn Abdominal Pain, Vomiting. 17:11 The patient presents to the emergency department with nausea, vomiting, abdominal pain. rn Onset: The symptoms/episode began/occurred 2 day(s) ago. Possible causes: flare up of bowel problem, gastroparesis. The symptoms are aggravated by food , The symptoms are alleviated by nothing. Associated signs and symptoms: Pertinent positives: abdominal pain, nausea, vomiting, Pertinent negatives: fever. Severity of symptoms: At their worst the symptoms were moderate in the emergency department the symptoms are unchanged. The patient has experienced similar episodes in the past. The patient has not recently seen a physician. Pt reports feels like having gastroparesis problem again, having nausea/vomiting/abd pain. Feels identical to previous gastroparesis episodes. States latest plan is to get gastric bypass surgery because her friend had it done and fixed her gastroparesis. . Historical: - Allergies: 16:52 ambien; hb 16:52 Codeine; hb 16:52 GUAIFENESIN; hb 16:52 Lisinopril; hb 16:52 Morphine; hb 16:52 Nitrofurantoin Macrocrystal; hb 16:52 PENICILLINS; hb 16:52 Prolixin; hb 16:52 zolpidem tartrate; hb - PMHx: 16:52 "mental problems"; CHF; chronic kidney disease; cyclic vomiting syndrome; Diabetes - hb NIDDM; Dialysis; m-w-f; ENCEPHALOPATHY; Gastroparesis; Hypertension; ibs; liver failure; PERIPHERAL NEUROPATHY; pseudo aneurysm R groin; Seizures; - PSHx: 16:52 section; dialysis catheter R chest wall; eye removed; hb - Immunization history:: Adult Immunizations up to date. - Social history:: Smoking status: Patient reports the use of cigarette tobacco products, denies chronic smoking, but will smoke occasionally. - Family history:: not pertinent. - Hospitalizations: : No recent hospitalization is reported. ROS: 17:11 Constitutional: Negative for fever, chills, and weight loss, Eyes: Negative for injury, rn pain, redness, and discharge, Neck: Negative for injury, pain, and swelling, Cardiovascular: Negative for chest pain, palpitations, and edema, Respiratory: Negative for shortness of breath, cough, wheezing, and pleuritic chest pain, Abdomen/GI: Negative for constipation Back: Negative for injury and pain, MS/Extremity: Negative for injury and deformity, Skin: Negative for injury, rash, and discoloration, Neuro: Negative for headache, weakness, numbness, tingling, and seizure. Exam: 17:11 Constitutional: This is a well developed, well nourished patient who is awake, alert, rn and in no acute distress. Head/Face: Normocephalic, atraumatic. ENT: dry MM Cardiovascular: Regular rate and rhythm. No pulse deficits. Respiratory: No increased work of breathing, no retractions or nasal flaring. Abdomen/GI: soft, + mild LUQ tenderness, no rebound, no peritoneal signs. Skin: Warm, dry MS/ Extremity: Pulses equal, no cyanosis. Neuro: Awake and alert, GCS 15 Vital Signs: 16:50 BP 292 / 96; Pulse 77; Resp 18; Temp 98.9; Pulse Ox 100% on R/A; Weight 72.9 kg; Height hb 5 ft. 1 in. (154.94 cm); Pain 8/10; 18:06 BP 211 / 88; Pulse 86; Resp 16; mb8 18:36 BP 234 / 71; Pulse 94; Resp 16; Pain 6/10; mb8 16:50 Body Mass Index 30.37 (72.90 kg, 154.94 cm) hb MDM: 17:02 Patient medically screened. rn 18:24 Differential diagnosis: gastritis, viral gastroenteritis, gastroenteritis, rn gastroparesis. Data reviewed: vital signs, nurses notes, lab test result(s), and as a result, I will discharge patient. Counseling: I had a detailed discussion with the patient and/or guardian regarding: the historical points, exam findings, and any diagnostic results supporting the discharge/admit diagnosis, lab results, the need for outpatient follow up, to return to the emergency department if symptoms worsen or persist or if there are any questions or concerns that arise at home. Response to treatment: the patient's symptoms have markedly improved after treatment, and as a result, I will discharge patient. Special discussion: I discussed with the patient/guardian in detail that at this point there is no indication for admission to the hospital. It is understood, however, that if the symptoms persist or worsen the patient needs to return immediately for re-evaluation. ED course: Pt states has dialysis in AM, mild elevation of potassium, will give kayexalate and dc home with return precautions. Pt states feels much better. No arrhythmia on monitor. 03/15 17:07 Order name: CBC with Diff; Complete Time: 18:07 rn 03/15 17:07 Order name: CMP; Complete Time: 18:18 rn 03/15 17:07 Order name: Lipase; Complete Time: 18:18 rn 03/15 17:27 Order name: Urine Dipstick-Ancillary; Complete Time: 17:30 EDMS 03/15 17:07 Order name: IV Saline Lock; Complete Time: 17:28 rn 03/15 17:07 Order name: Labs collected and sent; Complete Time: 17:39 rn Administered Medications: 17:53 Drug: Zofran (Ondansetron) 4 mg Route: IVP; Site: left antecubital; mb8 17:53 Drug: Demerol (meperidine) 50 mg Route: IVP; Site: left antecubital; mb8 18:43 Follow up: Response: Pain is decreased mb8 17:53 Drug: NS 0.9% 250 ml Route: IV; Rate: bolus; Site: left antecubital; mb8 18:34 Drug: Kayexalate (polystyrene) 45 grams Route: PO; mb8 18:34 Drug: Demerol (meperidine) 25 mg Route: IVP; Site: left antecubital; mb8 18:43 Drug: Phenergan (promethazine) 12.5 mg Route: IVP; Site: left antecubital; mb8 Disposition Summary: 03/15/22 18:26 Discharge Ordered Location: Home rn Problem: chronic rn Symptoms: have improved rn Condition: Stable rn Diagnosis - Gastroparesis rn - End stage renal disease rn - Hyperkalemia rn Followup: rn - With: Jose Miguel Morin DO - When: Tomorrow - Reason: Recheck today's complaints, Re-evaluation by your physician Discharge Instructions: - Discharge Summary Sheet rn - Hyperkalemia rn - End-Stage Kidney Disease rn - Gastroparesis rn Forms: - Medication Reconciliation Form rn - Thank You Letter rn - Antibiotic internal sales engineer - Prescription Opioid Use rn Signatures: Dispatcher [employer] Dinesh Allen MD MD rn Baxter, Heather, RN RN hb Bates, Michael RN RN mb8
--- NOTE | 2022-03-15 18:26 | ER ---
Nurse's Notes [facility] Name: Cathi Zaldivar Age: 41 yrs Sex: Female : 1980 Arrival Date: 03/15/2022 Time: 16:48 Bed 18 Private MD: Jose Miguel Morin Diagnosis: Gastroparesis;End stage renal disease;Hyperkalemia Presentation: 03/15 16:50 Chief complaint: Diffuse abdominal pain and N/V x 3 days. Not tolerating fluids. Denies hb fever. Last HD was Wednesday. Coronavirus screen: At this time, the client does not indicate any symptoms associated with coronavirus-19. Ebola Screen: No symptoms or risks identified at this time. Risk Assessment: Do you want to hurt yourself or someone else? Patient reports no desire to harm self or others. Onset of symptoms was March 13, 2022. 16:50 Method Of Arrival: Wheelchair hb 16:50 Acuity: JESSICA 3 hb Historical: - Allergies: 16:52 ambien; hb 16:52 Codeine; hb 16:52 GUAIFENESIN; hb 16:52 Lisinopril; hb 16:52 Morphine; hb 16:52 Nitrofurantoin Macrocrystal; hb 16:52 PENICILLINS; hb 16:52 Prolixin; hb 16:52 zolpidem tartrate; hb - PMHx: 16:52 "mental problems"; CHF; chronic kidney disease; cyclic vomiting syndrome; Diabetes - hb NIDDM; Dialysis; m-w-f; ENCEPHALOPATHY; Gastroparesis; Hypertension; ibs; liver failure; PERIPHERAL NEUROPATHY; pseudo aneurysm R groin; Seizures; - PSHx: 16:52 section; dialysis catheter R chest wall; eye removed; hb - Immunization history:: Adult Immunizations up to date. - Social history:: Smoking status: Patient reports the use of cigarette tobacco products, denies chronic smoking, but will smoke occasionally. - Family history:: not pertinent. - Hospitalizations: : No recent hospitalization is reported. Screenin:27 Abuse screen: Denies threats or abuse. Denies injuries from another. Nutritional mb8 screening: No deficits noted. Tuberculosis screening: No symptoms or risk factors identified. Fall Risk None identified. Assessment: 17:26 Pain: Complains of pain in abdomen Pain does not radiate. Pain currently is 8 out of 10 mb8 on a pain scale. GI: Bowel sounds present X 4 quads. Abd is soft and non tender Reports lower abdominal pain, upper abdominal pain, nausea, vomiting. Vital Signs: 16:50 BP 292 / 96; Pulse 77; Resp 18; Temp 98.9; Pulse Ox 100% on R/A; Weight 72.9 kg; Height hb 5 ft. 1 in. (154.94 cm); Pain 8/10; 18:06 BP 211 / 88; Pulse 86; Resp 16; mb8 18:36 BP 234 / 71; Pulse 94; Resp 16; Pain 6/10; mb8 16:50 Body Mass Index 30.37 (72.90 kg, 154.94 cm) hb ED Course: 16:48 Patient arrived in ED. mr 16:48 Jose Miguel Morin DO is Private Physician. mr 16:52 Triage completed. hb 16:52 Arm band placed on. hb 17:01 Dinesh Stallworth MD is Attending Physician. rn 17:26 Yury Do RN is Primary Nurse. mb8 17:27 Patient has correct armband on for positive identification. Bed in low position. Call mb8 light in reach. Side rails up X2. Client placed on continuous cardiac and pulse oximetry monitoring. NIBP monitoring applied. cafeteria monitor on. 17:27 No provider procedures requiring assistance completed. mb8 17:39 Inserted saline lock: 20 gauge in left upper arm, using aseptic technique. ,using ss aseptic technique. US guided. 18:25 Jose Miguel Morin DO is Referral Physician. rn 19:04 IV discontinued, intact, bleeding controlled, No redness/swelling at site. Pressure mb8 dressing applied. Administered Medications: 17:53 Drug: Zofran (Ondansetron) 4 mg Route: IVP; Site: left antecubital; mb8 17:53 Drug: Demerol (meperidine) 50 mg Route: IVP; Site: left antecubital; mb8 18:43 Follow up: Response: Pain is decreased mb8 17:53 Drug: NS 0.9% 250 ml Route: IV; Rate: bolus; Site: left antecubital; mb8 18:34 Drug: Kayexalate (polystyrene) 45 grams Route: PO; mb8 18:34 Drug: Demerol (meperidine) 25 mg Route: IVP; Site: left antecubital; mb8 18:43 Drug: Phenergan (promethazine) 12.5 mg Route: IVP; Site: left antecubital; mb8 Medication: 17:27 VIS not applicable for this client. mb8 Outcome: 18:26 Discharge ordered by . rn 19:04 Discharged to home ambulatory. mb8 19:04 Discharged to home ambulatory. 19:04 Condition: stable 19:04 Discharge instructions given to patient, Instructed on discharge instructions, follow up and referral plans. Demonstrated understanding of instructions, follow-up care. 19:04 Patient left the ED. mb8 Signatures: Adela Reyes Dinesh Stallworth MD MD rn Smirch, Shelby, RN RN ss Baxter, Heather, RN RN hb Bates, Michael, RN RN mb8
[2022-03-15] MEDS ORDERED: SOD POLYSTYREN SUL 15 GM/60 ML UCUP ONE (18:37)
[2022-03-15] MEDS ORDERED: MEPERIDINE HCL 25 MG/ML SYR ONE (18:37)
[2022-03-15] MEDS ORDERED: PROMETHAZINE INJ 25 MG/ML AMP ONE (18:50)
[2022-03-17 13:12] VITALS: BP 234/71
== END 2022-03-15 19:04 | disposition home or self-care (01) ==
LOC: ER 16:45
DX: K31.84 Gastroparesis (principal); E87.5 Hyperkalemia; E11.22 Type 2 diabetes mellitus with diabetic chronic kidney disease; I13.2 Hypertensive heart and chronic kidney disease with heart failure and with stage 5 chronic kidney disease, or end stage renal disease; I50.9 Heart failure, unspecified; N18.6 End stage renal disease; Z99.2 Dependence on renal dialysis; Z88.0 Allergy status to penicillin; Z88.5 Allergy status to narcotic agent; Z88.8 Allergy status to other drugs, medicaments and biological substances
CPT/HCPCS: 85025; 36415; 81003; 83690; 80053; 96375; 96374; 99284; J2550; J2175 ×2; J7050; J2405 ×2

== ENCOUNTER 2022-03-16 18:02 | Emergency (ER) | payer OTHER ==
[2012-03-12 04:40] VITALS: BP 144/89
--- OUTSIDE RECORDS SUMMARY | 2022-03-16 18:32 | XMS REPORT | Continuity of Care Document ---
:1980 Author Organization [facility] t Address [address] [place] [address] Care Team Providers Name Role Phone SHARPLESS Primary Care Physician Unavailable Guillaume_Dinah Attending Clinician Unavailable RAJ WEST Attending Clinician Unavailable Jose Miguel Morin DO Attending Clinician Rosy BURNS, Brooke Ricci Attending Clinician [phone] Seth HOGUEC, Bessie Parks Attending Clinician Forrest Cruz Attending Clinician Unavailable Melany Gilbert Attending Clinician Pat BURNS, Sivan Brand Attending Clinician Isra BURNS, Rachel Lew Attending Clinician [phone] Robe BURNS, Holden Elmore Attending Clinician Magaly BURNS, Shanda Higuera Attending Clinician Endy BURNS, Aurelio Attending Clinician Alesia Dodd Attending Clinician Joe BURNS, Mando Raphael Attending Clinician [phone] Jose Carlos BURNS, Veto Vincent Attending Clinician Kenyatta BURNS, Juwan Attending Clinician Dco BURNS, Sofi Juárez Attending Clinician [phone] Robert MAYS, Gayle Attending Clinician Unavailable Luciana BURNS, Frankie Baig Attending Clinician Chandler Silverman Attending Clinician MD RACHEL BRASHER Attending Clinician Unavailable MD SHANDA SHAHID Attending Clinician Unavailable Leah Ureña MA Attending Clinician Unavailable Ba Attending Clinician Unavailable Maria M Turcios RN Attending Clinician Unavailable Anila Boles MA Attending Clinician Unavailable Sheikh KATY, Kye Attending Clinician August BURNS, Marilu Sheridan Attending Clinician Sukhjinder Medina MD Attending Clinician Hanane Hernandes Attending Clinician MD JUWAN YOU Attending Clinician Unavailable Elodia Coombs RN Attending Clinician Unavailable Doctor Unassigned, [place] Attending Clinician Unavailable MONISHA BAJWA Attending Clinician Unavailable Monisha Bajwa Attending Clinician Alexandr Diane MD Attending Clinician MARVIN WRIGHT Attending Clinician Unavailable Marvin Wright Attending Clinician Lamin BURNS, Sendil K.H. Attending Clinician Carlos BURNS, Jose Luis Attending Clinician Earl Sanchez DO Attending Clinician Deja Cleaning DPM Attending Clinician [phone] OZ KIMBLE.H. Attending Clinician Unavailable Rei Waldron Attending Clinician Unavailable Rei Waldron Attending Clinician Unavailable LY DORADO Attending Clinician Unavailable MOISE BHAKTA Attending Clinician Unavailable Luna Jamison Attending Clinician Joe Juárez Attending Clinician Atul Vadlez Attending Clinician Deshazo_T Admitting Clinician Unavailable RACHEL BRASHER Admitting Clinician Unavailable MD RACHEL BRASHER Admitting Clinician Unavailable Adams_R Admitting Clinician Unavailable KYE BARBER Admitting Clinician Unavailable MD JUWAN YOU Admitting Clinician Unavailable MARVIN WRIGHT Admitting Clinician Unavailable Marvin Wright Admitting Clinician Rei Waldron Admitting Clinician Unavailable MOISE BHAKTA Admitting Clinician Unavailable Danae Cha Admitting Clinician Joe Juárez Admitting Clinician Payers Payer Name Policy Type Policy Number Effective Date Expiration Date S karla [employer] [facility] [id number] 2020 00:00:00 MEDICARE PART A AND [id number] 2014 B 00:00:00 [employer] [id number] 2021 (MEDICARE 00:00:00 REPLACEMENT HMO) MEDICARE A B [id number] 2014 00:00:00 MEDICAID OF [place] [id number] 2016 00:00:00 Problems Condition Condition Condition Status Onset Resolution Last Treating Co mments Source Name Details Category Date Date Treatment Clinician Date AVF AVF Disease Active Univers (arteriove (arteriove 03-19 it y of nous nous 00:00: [place] [...] 00 GASTROPARE Diagnosis Active 2021-02-10 Memoria HELENA/IBS-D GASTROPARE 7-16 21:41:00 l /ANEMIA HELENA/IBS-D 00:00: Nidia nn /ANEMIA 00 Active 01/03/2021 [facility] NEW NEW Diagnosis Active 2020-12-24 Mem oria PATIENT GI PATIENT GI 10-14 10:39:00 l CONSULT CONSULT 00:00: Vin REFRACTORY REFRACTORY 00 GASTRO GASTRO Active 10/14/2020 [facility] Malfunctio Malfunctio Disease Active Overview : Univers n of n of 6-03 Formattin ity of arterioven arterioven 00:00: g of this [place] ous ous 00 note Medical dialysis dialysis might be Bran ch fistula, fistula, different initial initial from the encounter encounter original. Added automatic ally from request for surgery [id number] Candidiasi Candidiasi Disease Active U nivers s of vulva s of vulva 2-18 it y of and vagina [place] Screening Screening Disease Active Uni vers for breast for breast 2-18 it y of cancer cancer 00:00: [place] 00 Medical Branch NEW NEW Diagnosis Active 2018-07-26 Mem oria EVALUATION EVALUATION 07-12 09:39:00 l Active 00:00: Vin 07/12/2018 [facility] Pyogenic Pyogenic Disease Active 2017-06 Overview: Un lori granuloma granuloma 0-17 Formattin i ty of of of 00:00: g of this [place] conjunctiv conjunctiv 00 note Me dical a, right a, right might be Bran ch different from the original. Added automatic ally from request for surgery [id number] Right eye Right eye Disease Active Overview: Univers affected affected 02-22 Formattin ity of by by 00:00: g of this [place] proliferat proliferat 00 note Me dical montse montse might be Branch diabetic diabetic different retinopath retinopath from the y with y with original. traction traction Added retinal retinal automatic detachment detachment ally from not not request involving involving for macula, macula, surgery associated associated [id number] with type with type 1 diabetes 1 diabetes mellitus mellitus Pain Pain Disease Active Univers management management 01-18 it y of 00:00: [place] 00 Medical Branch Blind Blind Disease Active Overview: Univer s painful painful 12-16 Formattin ity o f eye eye 00:00: g of this [place] 00 note Medical might be Branch different from the original. Eviscerat ion OS on 8 - Dr. 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 Added automatic ally from request for surgery [id number] ESRD (end ESRD (end Disease Active Overview: Univers stage stage 6-12 Formattin ity of renal renal 00:00: g of this [place] disease) disease) 00 note Medica l on on might be Branch dialysis dialysis different from the original. Added automatic ally from request for surgery [id number] Diabetes Diabetes Disease Active Metho di mellitus mellitus - st 00:00: Hospita 00 l LUQ pain LUQ pain Disease Active Unive rs 2-05 ity of 00:00: [place] 00 Medical Branch Glaucoma Glaucoma Disease Active Overview: Un lori due to due to 07-22 Formattin ity of silicone silicone 00:00: g of this Baljinder as oil oil 00 note Medical might be Branch different from the original. Added automatic ally from request for surgery [id number] Neovascula Neovascula Disease Active U nivers r r 1-18 ity of glaucoma, glaucoma, [place] left [place] left eye [place] Medica [place] Branch Increased Increased Disease Active Uni vers intraocula intraocula 1-18 it y of r pressure r pressure [place] Fall Fall Disease Active 2016-06 Univers 0-13 ity of 00:00: [place] [facility] Pneumonia Pneumonia Disease Active 2016-06 Uni vers 0-11 ity of 00:00: [place] [facility] Diabetes Diabetes Disease Active 2016-06 Overview: Un lori mellitus mellitus 0-05 Formattin ity of 00:00: g of this [place] 00 note Medical might be Branch different from the original. Added automatic ally from request for surgery [id number] Pseudotumo Pseudotumo Disease Active U nivers r cerebri r cerebri 9-25 ity of 00:00: [place] [facility] Liver Liver Disease Active [facility] failure, failure[facility] acute 00:[facility]: [facility] 00 Center SANJUANA (acute SANJUANA (acute Disease Active [facility] kidney kidney [facility]16 [facility] injury) injury) 00:00: Medical 00 Center CKD CKD Disease Active [facility] (chronic (chronic [facility] kidney kidney 00:00: Medical disease) disease) 00 Center Acute Acute Disease Active [facility] encephalop encephalop 7-16 Kenyatta kes athy athy 00:00: Medical 00 Center Ulcer of Ulcer of Disease [facility] toe [facility] toe [facility] left foot left foot 00:00: [facility] 00 Center Peripheral Peripheral Disease Active [facility] neuropathy neuropathy 7-16 Kenyatta kes 00:00: Medical 00 Center Hyperglyce Hyperglyce Disease Active [facility] 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 7-16 Kenyatta kes type 2 type 2 00:00: Medical diabetes diabetes 00 Center mellitus mellitus Gastropare Gastropare Disease Active [facility] sis due to sis due to 7-16 Kenyatta kes DM DM 00:00: Medical 00 Center Cyclic Cyclic Disease Active [facility] vomiting vomiting [facility]16 [facility] syndrome syndrome 00:00: Medica l 00 Center Anxiety Anxiety Disease Active [facility] 7[facility]16 [facility] Bipolar Bipolar Disease Active [facility] disorder disorder 7[facility]16 [facility] Center Hypertensi Hypertensi Disease Active [facility] ve ve 7-16 [facility] emergency emergency 00:00: [facility] Center ACUTE RESP ACUTE Diagnosis Active 2016-09-09 Memoria FAILURE RESP 2-02 09:11:00 l FAILURE 00:00: Vin Active 00 07/23/2016 [facility] CONGESTION CONGESTIO Diagnosis Active 2016-07-24 Margi AMD N AMD 07-23 01:49:00 l DIARRHEA DIARRHEA 00:00: Jake gonzalez Active 00 07/23/2016 [facility] Congestive Congestive Disease Active 2015-06 U T heart heart 08-11 Health failure failure 00:00: (CHF) (CHF) 00 SOB/SWELLI SOB/SWELL Diagnosis Active 2015-062016-06-10 Memoria NG ING Active 08-11 15:48:00 l 06/10/2016 00:00: Jake gonzalez [address] CHF/RENAL CHF/RENAL Diagnosis Active 2015-062016-06-24 Memoria DISEASE DISEASE 08-11 15:35:00 l Active 00:00: Vin 06/10/2016 00 [facility] Obesity Obesity Disease Active 2015-06 Univers (BMI (BMI 0-12 ity of 30-39.9) 30-39.9) 00:00: [place] [address] Medical Branch Hyperosmol Hyperosmol Disease Active 2015-06 U jessicaers ar ar 0-12 ity of non-ketoti non-ketoti [place] c state in 00 Me dical patient patient Branch with 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 Hyperglyce Hyperglyce Disease Active 2015-06 U jessicaers maryam maryam 0-11 ity of 00:00: [place] [address] Medical Branch Diabetic Diabetic Disease Active Unive rs ulcer of ulcer of 5-07 ity of both feet [place] associated associated 00 Me dical with type with type Bran ch 2 diabetes 2 diabetes mellitus mellitus SANJUANA (acute SANJUANA (acute Disease Active U nivers kidney kidney 5-07 ity of injury) injury) 00:00: [place] [facility] Depression Depression Disease Active U nivers 5-07 ity of 00:00: [place] [address] Medical Branch Bipolar 1 Bipolar 1 Disease Active Uni vers disorder disorder 5-07 ity of 00:00: [place] [address] Medical Branch Suicidal Suicidal Disease Active Unive rs ideation ideation 5-05 ity of 00:00: [place] [facility] Diabetes Diabetes Disease Active 2016-0 Unive rs 1.5, 1.5, 3-29 ity of [...] cancer in cancer in 00 [facility] female female Branch Family Family Disease Active [...] ABDOMINAL Diagnosis Active 2014-06-26 Memoria PAIN, PAIN, 106 05:44:00 l SEIZURES SEIZURES 00:00: Jake gonzalez Active 00 06/26/2013 [facility] ABD PAIN ABD PAIN Diagnosis Active 2012-062013-04-19 Memoria Active 0 21:51:00 l 04/14/2013 19:00: Jake gonzalez [address] GASTROPERI GASTROPER Diagnosis Active 2012-09-13 Memoria SIS DAISY 2-12 15:17:00 l Active 00:00: Vin 08/02/2012 00 [facility] ABDOMINAL ABDOMINAL Diagnosis Active 2012-03-14 Memoria PAIN PAIN 9- 16:56:00 l Active 14:00: Vin 03/14/2012 00 [facility] NAUSEA, NAUSEA, Diagnosis Active 2012-03-14 Memoria VOMITING VOMITING 03-14 13:25:00 l Active 08:00: Vin 03/14/2012 00 [facility] N/V N/V Diagnosis Active 2011-12-08 Mem oria INABILITY INABILITY 11-27 11:14:00 l TO TO 00:00: Vin TOLERATE TOLERATE 00 PO PO Active 11/28/2011 [facility] VOMITTING VOMITTING Diagnosis Active 2011-11-28 Memoria Active 11-27 16:28:00 l 11/28/2011 00:00: Jake n [address] VOMITTING, VOMITTING Diagnosis Active 2011-09-18 Memoria HIGH BLOOD , HIGH 09-17 09:45:00 l SUGAR BLOOD 00:00: Vin SUGAR 00 Active 09/18/2011 [facility] Methicilli Methicill Problem Active 2021-01-31 Memoria n in 08-31 22:29:25 l resistant resistant 00:00: Herm naeem Staphyloco Staphyloco 00 ccus ccus aureus aureus (organism) (organism) Active 09/01/2011 Problem 01/31/2021 09/01/11 - Elbow woundProbl em added by Discern Expert. [facility] MRSA MRSA Problem Active 2012-03-16 Memor ia Active 08-31 09:11:30 l 09/01/2011 00:00: Jake n Problem 00 03/16/2012 - Elbow [id number] emily added by Discern Expert. [facility] VOMITING, VOMITING, Diagnosis Active 2011-09-01 Memoria BLOOD BLOOD 08-30 03:19:00 l SUGAR SUGAR 00:00: Delevan READINGS READINGS 00 HIGH HIGH Active 08/31/2011 [facility] ELBOW ELBOW Diagnosis Active 2011-09-10 Mem oria ABSCESS/HY ABSCESS/HY 08-30 16:26:00 l PERGLYCEMI PERGLYCEMI 00:00: Tyrel canales A A Active 00 08/31/2011 [facility] Hypokalemi Hypokalem Problem Active 2012-03-16 Memoria a ia Active 08-22 09:11:30 l 08/23/2011 00:00: Jake n Problem 00 03/16/2012 [facility] DKA DKA Diagnosis Active 2011-08-24 Mem oria Active 11:27:00 l 08/19/2011 00:00: Jake gonzalez [address] VOMITING VOMITING Diagnosis Active 2011-08-19 Memoria Active 16:21:00 l 08/19/2011 00:00: Jake gonzaelz [address] Final: Final: Problem 2016-08-02 Mendoza janice Acute Acute 02:46:22 l respirator respirator He rmann y failure, y failure, unspecifie unspecifie d whether d whether with with hypoxia or hypoxia or hypercapni hypercapni a a 08/02/2016 [facility] Hypoglycem Hypoglyce Problem Inactiv 2012-03-16 Memoria ia maryam e 09:11:30 l Inactive Delevan Problem 03/16/2012 [facility] Hypoglycem Hypoglyce Problem Inactiv 2013-04-22 Memoria ia maryam e 04:46:33 l (disorder) (disorder) He rmann Inactive Problem 04/22/2013 [facility] Gastropare Problem Resolve 2021-01-31 Memoria sis Gastropare d 22:29:25 l (disorder) sis Jake n (disorder) Resolved Problem 01/31/2021 [facility] Hypertensi Hypertens Problem Resolve 2021-01-31 Memoria ve montse d 22:29:25 l disorder, disorder, Herm naeem systemic systemic arterial arterial (disorder) (disorder) Resolved Problem 01/31/2021 [facility] Psychiatri Psychiatr Problem Resolve 2021-01-31 Memoria c ic d 22:29:25 l behavioral behavioral He rmann disability disability (finding) (finding) Resolved Problem 01/31/2021 [facility] Seizure Seizure Problem Resolve 2021-01-31 M emoria (finding) (finding) d 22:29:25 l Resolved Delevan Problem 01/31/2021 [facility] Hypertensi Hypertens Problem Active 2012-03-16 Memoria on ion Active 09:11:30 l Problem Vin 03/16/2012 [facility] Hypomagnes Hypomagne Problem Active 2013-04-22 Memoria emia semia 04:46:33 l Active Vin Problem 04/22/2013 [facility] Nausea and Nausea Problem Active 2012-03-16 Memoria vomiting and 09:11:30 l vomiting Delevan Active Problem 03/16/2012 [facility] ENCNTR FOR ENCNTR Diagnosis Active 2020-12-24 Memoria GENERAL FOR 10:39:00 l ADULT GENERAL Vin MEDICAL ADULT EXAM W/ MEDICAL EXAM W/ Active [facility] DMI DMI Diagnosis Active 2011-08-24 Mem oria KETOACD KETOACD 11:27:00 l UNCONTROLD UNCONTROLD He rmann Active [facility] OTHER OTHER Diagnosis Active 2011-09-10 Me moria GENERAL GENERAL 16:26:00 l SYMPTOMS SYMPTOMS Jake n Active [facility] HEART HEART Diagnosis Active 2016-06-24 Mem oria FAILURE, FAILURE, 15:35:00 l UNSPECIFIE UNSPECIFIE He rmnaeem D D Active [facility] ACUTE ACUTE Diagnosis Active 2016-09-09 Mem oria RESPIRATOR RESPIRATOR 09:11:00 l Y FAILURE, Y FAILURE, He ally UNSP W UNSP W HYPOXI HYPOXI Active [facility] Nausea and Nausea Problem Resolve 2021-01-31 2021-01-31 Memoria vomiting and d - 22:29:25 22:29:25 l (disorder) vomiting 00:00: Herm naeem (disorder) 00 Resolved 11/29/2011 Problem 01/31/2021 [facility] Hypokalemi Hypokalem Problem Resolve 2021-01-31 2021-01-31 Memoria a ia d 08-22 22:29:25 22:29:25 l (disorder) (disorder) 00:00: He rmann Resolved 00 08/23/2011 Problem 01/31/2021 [facility] Disorder Disorder Problem Resolve 2021-01-31 2021-01-31 Memoria of of d 08-22 22:29:25 22:29:25 l magnesium magnesium 00:00: Herm naeem metabolism metabolism 00 (disorder) (disorder) Resolved 08/23/2011 Problem 01/31/2021 [facility] Hyperglyce Hyperglyc Problem Resolve 2021-01-31 2021-01-31 Memoria maryam emia d - 22:29:25 22:29:25 l (disorder) (disorder) 00:00: He jagdishann Resolved 00 08/20/2011 Problem 01/31/2021 [facility] Ketoacidos Ketoacido Problem Resolve 2021-01-31 2021-01-31 Memoria is in sis in d 22:29:25 22:29:25 l diabetes diabetes 00:00: Jake gonzalez mellitus mellitus 00 (disorder) (disorder) Resolved 08/19/2011 Problem 01/31/2021 [facility] DKA DKA Problem Resolve 2013-04-22 2013-04-22 Memoria (diabetic (diabetic d 04:46:33 04:46:33 l ketoacidos ketoacidos 00:00: Tyrel thompson) es) 00 Resolved 08/19/2011 Problem 04/22/2013 [facility] History of Past Illness Condition Condition Condition Status Onset Resolution Last Treating Co mments Source Name Details Category Date Date Treatment Clinician Date Discharge Discharge Problem 2014-06-28 2014-06-28 Memoria Diagnosis: Diagnosis: 06-26 16:34:37 16:34:37 l Gastropare Gastropare 06:00: Tyrel canales sis sis 00 06/26/2014 5 [facility] Hyperglyce Hyperglyc Problem Inactiv 2012-03-16 2012-03-16 Memoria maryam emia e 08-19 09:11:30 09:11:30 l Inactive 00:00: Vin 08/20/2011 00 Problem 03/16/2012 [facility] Allergies, Adverse Reactions, Alerts Allergy Allergy [...] 00:00: 00 ADHESIVE DRUG Active Med Rash 2017 Univers TAPE-KERLINE 2-14 ity of ICONES 00:00: [place] 00 [facility] Branch Adhesive Propensi Active Swelling 2016- Tears off M ethodi Tape-Kerline ty to [...] ity of 00:00: [place] 00 [facility] Branch GUAIFENE Allergy Active Other [facility] 01-03 [...] [facility]-03 [facility] Nitrofur Propensi Active [...] Reports transient liver disease with nitrofura ntoin NITROFUR Allergy Active High Anaphylaxis SL [facility] ANTOIN 01-03 MONOHYD/ 00:00: M-CRYST 00 PENICILL Allergy Active High Sob [facility] INS 01-03 00:00: 00 ZOLPIDEM Allergy Active Other [facility] 01-03 00:00: 00 LISINOPR Allergy Active Other [facility] [place] 01-03 00:00: 00 Ketorola Allergy Active Swelling throatthr [place] c to 12-13 [facility] Trometha substanc 00:00: mine e 00 KETOROLA DRUG Active High Swelling Univer s C INGREDI 12-13 ity of TROMETHA 00:00: [place] MINE 00 [...] Other-Cmnt Univer s 12-30 ity of 00:00: [address] Guaifene Propensi Active Other (See Other [...] Adhesive Active Memori a Tape Tape l [place] Ambien Ambien Active Memoria l [place] Prolex Prolex Active Memoria DM DM l Vin penicill Drug Active [facility] lisinopr Drug Active [facility] Ambien Drug Active [facility] Prolixin Drug Active [facility] penicill Drug Active [facility] lisinopr Drug Active [facility] Ambien [facility] Active [facility] Prolixin Drug Active [facility] Tape Other Active [facility] penicill Drug Active [facility] lisinopr Drug Active [facility] Ambien Drug Active [facility] Prolixin Drug Active [facility] codeine Drug Active [facility] penicill Drug Active [facility] lisinopr Drug Active [facility] Ambien Drug Active [facility] Prolixin Drug Active [facility] codeine Drug Active [facility] penicill Drug Active [facility] lisinopr Drug Active [facility] Ambien Drug Active [facility] Prolixin Drug Active [facility] penicill Drug Active [facility] lisinopr Drug Active [facility] Ambien Drug [facility] Prolixin Drug Active [facility] penicill Drug Active [facility] in [facility] lisinopr Drug Active . il [facility] Ambien Drug Active [facility] Prolixin Drug Active [facility] Social History Social Habit Start Date Stop Date Quantity Comments Source History of tobacco Cigarette Smoker [facility] Exposure to Yes [facility] SARS-CoV-2 (event) Hospit al Alcohol intake 2021-06-18 2021-06-18 Ex-drinker [facility] 00:00:00 00:00:00 (finding) Hospital Tobacco use and 2021-05-14 2021-05-14 Smokeless tobacco [facility] exposure 00:00:00 00:00:00 non-user Hospital Cigarettes smoked 2021-05-14 2021-05-[facility] 00:[facility] 00:00:00 Hospita l day) - Reported Cigarette 2021-05-14 2021-05-14 [facility] pack-years 00:00:00 00:00:00 Hospital Social History 2020-12-24 2020-12-24 [facility] 15:49:37 15:49:37 Tobacco Comment 2017-11-12 2017-11-12 5 cigarettes per [facility] 00:00:00 00:00:00 day Hospital Sex Assigned At [birth year] [facility] 00:00:00 00:00:00 Hospital Smoking Status Start Date Stop Date Source Smokes tobacco daily 2021-05-14 00:00:00 [facility] Former smoker 2020-06-27 00:00:00 2020-06-27 00:00:00 [facility] Medications Ordered Filled Start Stop Current Ordering Indication Dosage Frequency Signature Comments Components Source Medication Medication Date Date Medication? Clinician (SIG) Name Name glipiZIDE Yes 5mg Take 5 mg Met hodi (GLUCOTROL) 1-[address] 5 MG tablet 13:02: daily. Hosp jo-ann 39 l calcium 2021- Yes 667mg Q.[id number] Take 667 Method[facility] acetate 1-[id number] (PHOSLO) 13:02: 3D mouth 3 Hospit a 667 mg 39 (three) l capsule times a day with meals. Takes 7 pills with every meal and snack. Patient States meal or snack per day. sertraline 2-0 Yes 50mg QD Take 50 mg M ethodi (ZOLOFT) 50 1-[address] MG tablet 13:02: daily. Hospit a 39 l furosemide 2022-0 Yes 80mg Q.5D Take 80 mg M ethodi (LASIX) 80 1-[address] mg tablet 13:02: (two) Hospita 39 times a l day. folic 2022-0 Yes 800mg Take 800 [facility] acid/vit B 1-[address] complex and 13:02: mouth Hospi ta C 39 daily. l (DIALYVITE 800 ORAL) cyanocobala 2022-0 Yes 1000ug Q.5D Take 1,000 Methodi min [...] 39 (two) l times a day. pravastatin 2-0 Yes 40mg QD Take 40 mg Methodi (PRAVACHOL) 1-[address] 40 MG 13:02: daily. Hospita tablet 39 l busPIRone 2022-0 Yes 15mg Q.5D Take 15 mg Me thodi (BUSPAR) 1-[address] 7.5 MG 13:02: (two) Hospita tablet 39 times a l day. 2 traZODone 2022-0 Yes 150mg QD Take 150 Met hodi (DESYREL) 1-[address] 150 MG 13:02: mouth Hospita tablet 39 nightly. l calcium 2021-0 Yes 1334mg Q.[id number] Take 1,334 Method[facility] acetate,domingo 1-18 [id number] mg by s t sphat bind, 13:02: 3D mouth 3 Hos whit (Phoslyra) 39 (three) l 667 mg (169 times a mg day. calcium)/5 mL solution cyproheptad 2021-0 Yes 4mg Q.[id number] Take 4 mg Methodi ine 1-18 [id number] mouth [address] (PERIACTIN) 13:02: 3D (three) Hos whit 4 mg tablet 39 times a l day as needed for allergies. buPROPion 2021-0 Yes 300mg QD Take 300 Met hodi XL 1-[address] (WELLBUTRIN 13:02: mouth Hospi ta XL) 300 MG 39 daily. l 24 hr tablet ascorbic 2021-0 Yes 500mg Q.[id number] Take 500 [facility] acid, 1-[id number] vitamin C, 13:02: 3D [...] 13:02: daily. Hosp jo-ann 39 l calcium 2021-0 Yes 667mg Q.[id number] Take 667 [facility]i acetate 1-[id number] (PHOSLO) 13:02: 3D mouth 3 Hospit a 667 mg 39 (three) l capsule times a day with meals. Takes 7 pills with every meal and snack. Patient States meal or snack per day. sertraline 2021-0 Yes 50mg QD Take 50 mg M ethodi (ZOLOFT) 50 1-[address] MG tablet 13:02: daily. Hospit a 39 l furosemide 2021-0 Yes 80mg Q.5D Take 80 mg M [...] 39 nightly. l calcium 2021-0 Yes 1334mg Q.[id number] Take 1,334 Methodi acetate,domingo 1-18 [id number] mg by s t sphat bind, 13:02: 3D mouth 3 Hos whit (Phoslyra) 39 (three) l 667 mg (169 times a mg day. calcium)/5 mL solution cyproheptad 2021-0 Yes 4mg Q.[id number] Take 4 mg Methodi ine 1-18 [id number] by mouth [address] (PERIACTIN) 13:02: 3D (three) Hos whit 4 mg tablet 39 times a l day as needed for allergies. buPROPion 2021-0 Yes 300mg QD Take 300 Met hodi XL 1-[address] (WELLBUTRIN 13:02: mouth Hospi ta XL) 300 MG 39 daily. l 24 hr tablet ascorbic 2021-0 Yes 500mg Q.[id number] Take 500 [facility] acid, 1-[id number] vitamin C, 13:02: 3D [...] 13:02: daily. Hosp [facility]-ann 39 l calcium 2021-0 Yes 667mg Q.[id number] Take 667 [facility] acetate 1-[id number] (PHOSLO) 13:02: 3D mouth 3 Hospit a 667 mg 39 (three) l capsule times a day with meals. Takes 7 pills with every meal and snack. Patient States meal or snack per day. sertraline 2021-0 Yes 50mg QD Take 50 mg M ethodi (ZOLOFT) 50 1-[address] MG tablet 13:02: daily. Hospit a 39 l furosemide 2022-0 Yes 80mg Q.5D Take 80 mg M ethodi (LASIX) 80 1-[address] mg tablet 13:02: (two) Hospita 39 times a l day. folic 2022-0 Yes 800mg Take 800 [facility] acid/vit B 1-[address] complex and 13:02: mouth Hospi ta C 39 daily. l (DIALYVITE 800 ORAL) cyanocobala 202-0 Yes 1000ug Q.5D Take 1,000 Methodi min [...] 39 nightly. l calcium 2021-0 Yes 1334mg Q.52660815 Take 1,334 Methodi acetate,domingo 1-18 [id number] mg by s t sphat bind, 13:02: 3D mouth 3 Hos whit (Phoslyra) 39 (three) l 667 mg (169 times a mg day. calcium)/5 mL solution cyproheptad 2021-0 Yes 4mg Q.10958777 Take 4 mg Methodi ine 1-18 [id number] [address] mouth [address] (PERIACTIN) 13:02: 3D (three) Hos whit 4 mg tablet 39 times a l day as needed for allergies. buPROPion 2021-0 Yes 300mg QD Take 300 Met hodi XL 1-[address] (WELLBUTRIN 13:02: mouth Hospi ta XL) 300 MG 39 daily. l 24 hr tablet ascorbic 2021-0 Yes 500mg Q.[id number] Take 500 [facility] acid, 1-[id number] vitamin C, 13:02: 3D [...] 39 (two) l times a day. pravastatin 2-0 Yes 40mg QD Take 40 mg Methodi [...] 39 nightly. l calcium 2021-0 Yes 1334mg Q.[id number] Take 1,334 Methodi acetate,domingo 1-18 [id number] mg by s t sphat bind, 13:02: 3D mouth 3 Hos whit (Phoslyra) 39 (three) l 667 mg (169 times a mg day. calcium)/5 mL solution cyproheptad 2021-0 Yes 4mg Q.[id number] Take 4 mg [facility]i ine 1-18 [id number] [address] mouth [address] (PERIACTIN) 13:02: 3D (three) Hos whit 4 mg tablet 39 times a l day as needed for allergies. buPROPion 2021-0 Yes 300mg QD Take 300 Met hodi XL 1-[address] (WELLBUTRIN 13:02: mouth Hospi ta XL) 300 MG 39 daily. l 24 hr tablet ascorbic 2021-0 Yes 500mg Q.81624622 Take 500 [facility] acid, 1-[id number] vitamin C, 13:02: 3D [...] 13:02: daily. Hosp jo-ann 39 l calcium 2021-0 Yes 667mg Q.[id number] Take 667 [facility] acetate 1-[id number] (PHOSLO) 13:02: 3D mouth [...] morning and 5 mg at night apixaban 2020-06 No 10mg Q.5D Take 10 mg Me [...] mg at night vancomycin 2020-06- No 750mg Q.50490817 Infuse 750 [facility] 750 mg in 07-08 [id number] mg [address] a [address] sodium 00:00: 05:59 3W venous Hospita chloride 00 :00 catheter 3 l 0.9% 250 mL (three) IVPB times a week for 19 days. Administer 3 times weekly in dialysis vancomycin 2020-06- No 750mg Q.30294964 Infuse 750 [facility] 750 mg in 07-08 [id number] mg [address] a [address] sodium 00:00: 05:59 3W venous Hospita chloride 00 :00 catheter 3 l 0.9% 250 mL (three) IVPB times a week for 19 days. Administer 3 times weekly in dialysis vancomycin 2020-06- No 750mg Q.59300652 Infuse 750 [facility] 750 mg in 07-08 [id number] mg into a [facility] sodium 00:00: 05:59 3W venous Hospita chloride 00 :00 catheter 3 l 0.9% 250 mL (three) IVPB times a week for 19 days. Administer 3 times weekly in dialysis vancomycin 2020-06- No 750mg Q.66745672 Infuse 750 [facility] 750 mg in 07-08 [id number] mg into a [address] sodium 00:00: 05:59 3W venous Hospita chloride 00 :00 catheter 3 l 0.9% 250 mL (three) IVPB times a week for 19 days. Administer 3 times weekly in dialysis HYDROcodone 2020-06 1{tbl} Q6H Take 1 Methodi -acetaminop -06-24 tablet by [facility] ([employer]) 00:00: 05:59 mouth Hosp jo-ann 5-325 mg 00 :00 every 6 l per tablet (six) hours as needed for severe pain for up to 5 days .acute pain. Max Daily Amount: 4 tablets HYDROcodone 2020-06 1{tbl} Q6H Take 1 Methodi -acetaminop 2-19 07- tablet by st [employer] ([employer]) 00:00: 05:59 mouth [facility]osp jo-[facility] 5-325 mg 00 :00 every 6 l per tablet (six) hours as needed for severe pain for up to 5 days .acute pain. Max Daily Amount: 4 tablets HYDROcodone 2020-06 1{tbl} Q6H Take 1 [facility] -acetaminop 2-19 07- tablet by [facility] ([employer]) 00:00: 05:59 mouth [facility]osp jo[facility]ann 5-325 mg 00 :00 every 6 l per tablet (six) hours as needed for severe pain for up to 5 days .acute pain. Max Daily Amount: 4 tablets HYDROcodone 2020-06 1{tbl} Q6H Take 1 [facility]i -acetaminop 2-29 -[address] hen (NORCO) 00:00: 05:59 mouth [facility]osp jo-ann 5-325 mg 00 :00 every 6 l per tablet (six) hours as needed for severe pain for up to 5 days .acute pain. Max Daily Amount: 4 tablets spironolact 2020-06 No 50mg QD Take 50 mg [facility]i one 2-16 12-[address] (ALDACTONE) 10:21: 00:00 daily. Hos whit 50 MG 19 :00 l tablet spironolact 2020-06 No 50mg QD Take 50 mg [facility]i one 2-16 12-[address] (ALDACTONE) 10:21: 00:00 daily. Hos whit 50 MG 19 :00 l tablet spironolact 2020-06 No 50mg QD Take 50 mg [facility]i one 2-16 12-[address] (ALDACTONE) 10:21: 00:00 daily. Hos whit 50 MG 19 :00 l tablet spironolact 2020-06 No 50mg QD Take 50 mg Methodi one 2-16 12-[address] (ALDACTONE) 10:21: 00:00 daily. Hos whit 50 MG 19 :00 l tablet clopidogreL 2020-06 No 75mg QD Take 1 [...] mouth l daily for 30 days. clopidogreL 2020-06- No 75mg QD Take 1 Met hodi (PLAVIX) 75 07-27- tablet (75 s t mg tablet 00:00: 05:59 mg total) Ho spita 00 :00 by mouth l daily for 30 days. clopidogreL 2020-06- No 75mg QD Take 1 Met hodi (PLAVIX) 75 07-27- tablet (75 s t mg tablet 00:00: 05:59 mg total) Ho spita 00 :00 by mouth l daily for 30 days. gabapentin 2020-06 No 300mg QD Take 1 Met hodi (NEURONTIN) 206-[address] 300 mg 00:00: 05:59 (300 mg Hospita capsule 00 :00 total) by l mouth daily for 30 days. sennosides- 2020-06 No 1{tbl} QD Take 1 M ethodi docusate 2-06-[address] sodium 00:00: 05:59 mouth Hospita (SENOKOT-S) 00 :00 nightly l 8.6-50 mg for 30 per tablet days. gabapentin 2020-06 No 300mg QD Take 1 Met hodi (NEURONTIN) 206-[address] 300 mg 00:00: 05:59 (300 mg Hospita capsule 00 :00 total) by l mouth daily for 30 days. sennosides- 2020-06 No 1{tbl} QD Take 1 M ethodi docusate 206-[address] sodium 00:00: 05:59 mouth Hospita (SENOKOT-S) 00 :00 nightly l 8.6-50 mg for 30 per tablet days. gabapentin 2020-06 300mg QD Take 1 Met hodi (NEURONTIN) 206-[address] 300 mg 00:00: 05:59 (300 mg Hospita capsule 00 :00 total) by l mouth daily for 30 days. sennosides- 2020-06 No 1{tbl} QD Take 1 M ethodi docusate [address] sodium 00:00: 05:59 mouth Hospita (SENOKOT-S) 00 :00 nightly l 8.6-50 mg for 30 per tablet days. gabapentin 2020-06 300mg QD Take 1 Met hodi (NEURONTIN) 2-06-[address] 300 mg 00:00: 05:59 (300 mg Hospita capsule 00 :00 total) by l mouth daily for 30 days. sennosides- 2020-06 No 1{tbl} QD Take 1 M ethodi docusate 2-05 01-[address] sodium 00:00: 05:59 mouth Hospita (SENOKOT-S) 00 :00 nightly l 8.6-50 mg for 30 per tablet days. HYDROcodone 2020-06 2{tbl} Q8H Take 2 Methodi -acetaminop 2-05 12-13 tablets by s t hen ([employer]) 00:00: 05:59 mouth Hosp jo-ann 5-325 mg 00 :00 every 8 l per tablet (eight) hours as needed for severe pain for up to 7 days .acute pain. Max Daily Amount: 6 tablets HYDROcodone 2020-06 2{tbl} Q8H Take 2 Methodi -acetaminop 2-05 12-13 tablets by s t hen ([employer]) 00:00: 05:59 mouth Hosp jo-ann 5-325 mg 00 :00 every 8 l per tablet (eight) hours as needed for severe pain for up to 7 days .acute pain. Max Daily Amount: 6 tablets HYDROcodone 2020-06 2{tbl} Q8H Take 2 Methodi -acetaminop 2-05 12-13 tablets by s t hen ([employer]) 00:00: 05:59 mouth [facility]osp jo-ann 5-325 mg 00 :00 every 8 l per tablet (eight) hours as needed for severe pain for up to 7 days .acute pain. Max Daily Amount: 6 tablets HYDROcodone 2020-06 2{tbl} Q8H Take 2 Methodi -acetaminop 2-05 12-13 tablets by s t hen ([employer]) 00:00: 05:59 mouth [facility]osp jo-ann 5-325 mg 00 :00 every 8 l per tablet (eight) hours as needed for severe pain for up to 7 days .acute pain. Max Daily Amount: 6 tablets predniSONE 2020-06- No [id number] Take M ethodi (DELTASONE) 07-18 Prednisone s t 50 mg 00:00: 00:00 50mg 13 Hospita tablet 00 :00 hours, 7 l hours, and 1 hour prior to scheduled procedure on 05/19/2021 for contrast allergy prophylaxi s. predniSONE 2020-06 No [id number] Take M ethodi (DELTASONE) 07-18 Prednisone s t 50 mg 00:00: 00:00 50mg 13 Hospita tablet 00 :00 hours, 7 l hours, and 1 hour prior to scheduled procedure on 05/19/2021 for contrast allergy prophylaxi s. predniSONE 2020-06- No [id number] Take M ethodi (DELTASONE) 07-18 12- Prednisone s t 50 mg 00:00: 00:00 50mg 13 Hospita tablet 00 :00 hours, 7 l hours, and 1 hour prior to scheduled procedure on 05/19/2021 for contrast allergy prophylaxi s. predniSONE 2020-06- No [id number] Take M ethodi (DELTASONE) 07-18 12 Prednisone s t 50 mg 00:00: 00:00 [...] daily. Hos whit 30 :00 l linaGLIPtin 2020-06- No 5mg QD Take 5 mg Methodi (TRADJENTA) 1-24 11-[address] 5 mg tablet 15:20: 00:00 daily. Hos whit 30 :00 l linaGLIPtin 2020-06- No 5mg QD Take 5 mg Methodi (TRADJENTA) 1-24 11-[address] 5 mg tablet 15:20: 00:00 daily. Hos whit 30 :00 l buPROPion 2020-06- No 150mg Take 150 Me thodi SR 1-24 11-[address] (WELLBUTRIN 15:19: 00:00 mouth Hosp jo-ann SR) 150 MG 17 :00 daily. l 12 hr tablet buPROPion 2020-06- No 150mg Take 150 Me thodi SR 1-24 11-[address] (WELLBUTRIN 15:19: 00:00 mouth Hosp jo-ann SR) 150 MG 17 :00 daily. l 12 hr tablet buPROPion 2020-06- No 150mg Take 150 Me [...] by mouth ity of (PROTONIX) 11:08: daily. [place] 20 mg EC 01 Medical tablet Branch Cholecalcif 2020-06 Yes 5000U Take 5,000 Univers mansi, 0-03 Units by ity of Vitamin D3, 11:08: mouth. [facility] s 125 mcg 01 Medical (5,000 Branch unit) tablet proMETHazin 2020-06 Yes 25mg Take 25 mg Univers e 25 mg 0-03 by mouth. ity of tablet 11:08: [place] Medical Branch aspirin 81 2020-06 Yes 81mg Take 1 Unive rs mg chewable 0-03 tablet by ity of tablet 11:08: mouth [place] [address] daily. Medical Branch divalproex 2020-06 Yes 500mg Take 500 Un lori ER 0-01 mg by ity of (DEPAKOTE 23:08: mouth 2 [place] ER) 500 mg 36 (two) Medical 24 hr times Branch tablet daily. gabapentin 2020-06 Yes 100mg Take 100 Un lori 100 mg 0-01 mg by ity of capsule 23:08: mouth 2 [place] 36 (two) Medical times Branch daily. vitamin C 2020-06 Yes 2000mg Take 2,000 Univers with sia 0-01 mg by ity of hips 23:08: mouth 2 [place] (VITAMIN C) 36 (two) Medical 1,000 mg times Branch tablet daily. metoprolol 2020-06 Yes 50mg Take 50 mg U nivers tartrate 50 0-01 by mouth ity of mg tablet 23:08: daily. [place] [address] Medical Branch folic 2020-06 Yes 800mg Take 800 Univers acid/vit B 0-01 mg by ity of complex and 23:08: mouth [place] C 36 daily. Medical (DIALYVITE Branch 800 ORAL) linagliptin 2020-06 Yes Take by Uni vers (TRADJENTA) 0-01 mouth. ity of 5 mg tablet 23:08: [place] [address] Medical Branch spironolact 2020-06 Yes 50mg Take 50 mg Univers one 50 mg 0-01 by mouth ity of tablet 23:08: daily. [place] [address] Medical Branch pravastatin 2020-06 Yes 40mg Take 40 mg Univers 40 mg 0-01 by mouth ity of tablet 23:08: daily. [address] Branch mv-mn/iron/ 2020-06 Yes 1{capsu Take 1 U nivers folic 0-01 le} capsule by ity of acid/herb 23:08: mouth [place] 190 36 daily. Medical (VITAMIN D3 Branch COMPLETE ORAL) SERTraline 2020-06 Yes 50mg Take 50 mg U nivers 50 mg 0-01 by mouth ity of tablet 23:08: daily. [place] [address] Medical Branch calcium 2020-06 Yes 667mg Take 667 Unive rs acetate 667 0-01 mg by ity of mg capsule 23:08: mouth 3 [place] (three) Medical times Branch daily with meals. cetirizine 2020-06 Yes 1{tbl} Take 1 Uni vers HCl/pseudoe 0-01 tablet by ity of phedrine 23:08: mouth [place] (ZYRTEC-D 36 daily. Medical ORAL) Branch furosemide 2020-06 Yes 40mg Take 40 mg U nivers 40 mg 0-01 by mouth 2 ity of tablet 23:08: (two) [place] [address] times Medical daily. Branch divalproex 2020-06 Yes 500mg Take 500 Un lori ER 0-01 mg by ity of (DEPAKOTE 23:08: mouth 2 [place] ER) 500 mg 36 (two) Medical 24 [...] mouth ity of mg tablet 23:08: daily. [place] [address] Medical Branch folic 2020-06 Yes 800mg Take 800 Univers acid/vit B 0-01 mg by ity of complex and 23:08: mouth [place] C 36 daily. Medical (DIALYVITE Branch 800 ORAL) linagliptin 2020-06 Yes Take by Uni vers (TRADJENTA) 0-01 mouth. ity of 5 mg tablet 23:08: [address] Branch spironolact 2020-06 Yes 50mg Take 50 mg Univers one 50 mg 0-01 by mouth ity of tablet 23:08: daily. [address] Branch pravastatin 2020-06 Yes 40mg Take 40 mg Univers 40 mg 0-01 by mouth ity of tablet 23:08: daily. [address] Branch mv-mn/iron/ 2020-06 Yes 1{capsu Take 1 U nivers folic 0-01 le} capsule by ity of acid/herb 23:08: mouth [place] 190 36 daily. Medical (VITAMIN D3 Branch COMPLETE ORAL) SERTraline 2020-06 Yes 50mg Take 50 mg U nivers 50 mg 0-01 by mouth ity of tablet 23:08: daily. [address] Branch calcium 2020-06 Yes 667mg Take 667 Unive rs acetate 667 0-01 mg by ity of mg capsule 23:08: mouth 3 [place] (three) Medical times Branch daily with meals. cetirizine 2020-06 Yes 1{tbl} Take 1 Uni vers HCl/pseudoe 0-01 tablet by ity of phedrine 23:08: mouth [place] (ZYRTEC-D 36 daily. Medical ORAL) Branch furosemide 2020-06 Yes 40mg Take 40 mg U nivers 40 mg 0-01 by mouth 2 ity of tablet 23:08: (two) [place] [address] times Medical daily. Branch BUPROPION 2020-06- No [...] l 1999 19:37: IV, Vin units/mL 00 Q---, preservativ to be e-free given at injectable [...] tab, PO, l tablet 19:33: BID, 0 [place] 00 Refill(s) buPROPion Yes 75 mg = 1 Mem oria 75 mg oral 8-10 tab, PO, l tablet 19:33: Daily, # [place] 00 14 tab, 0 Refill(s) Norvasc No [...] 01-27 not exceed l 09:29: 4 gm/day. [place] (Same as: Tylenol) tramadol No Notes: Not Mem oria hydrochlori 01-27 to exceed l de 50 MG 09:29: 400mg/day. Her braden Oral Tablet 00 (Same As: Ultram) heparin No Notes: Memoria 01-27 porcine l 02:00: heparin Magnesium No Notes: Memori a Oxide 01-23 (Same as: l 22:54: Mag-Ox 400) Magnesium oxide [id number] g elemental magnesium Dose=____m g magnesium oxide (___mg elemental magnesium) Coreg No Notes: Memoria 01-23 Give with l 02:00: food. [place] 00 (Same As: Coreg) Buspar No Notes: Memoria 01-22 (Same As: l 22:00: BuSpar) Vin 00 Fentanyl No Notes: Memoria 01-22 (Same as: l 21:06: Sublimaze) Preservati ve free. Norvasc No Notes: Memoria 8- (Same as: l 16:47: Norvasc) [place] 00 Wellbutrin No Notes: Memor ia 01-22 [...] (Same as: l Tablet 14:00: Lasix) May Nidia nn 00 cause GI upset. Give with food [...] Zoloft) Tramadol No Notes: Not Mem oria - to exceed l 09:44: 400mg/day. (Same As: Ultram) Tylenol No Notes: Do Memor ia 8- not exceed l 09:44: 4 gm/day. Vin 00 (Same as: Tylenol) Fentanyl No Notes: Memoria 8-04 (Same as: l 09:44: Sublimaze) Vin 00 Preservati ve free. Fentanyl No Notes: Memoria 8-04 (Same as: l 04:46: Sublimaze) Vin 00 Preservati ve free. Fentanyl No Notes: Memoria 8-04 (Same as: l 02:01: Sublimaze) [place] 00 Preservati ve free. Coreg No Notes: Memoria [...] Me moria 01-21 RT l 17:49: DOCUMENTAT [place] ION (Same as: Proventil) albuterol No 180 [...] 0.9% 01-21 Same as: l 17:31: BD [place] Posiflush Sterile propofol 10 No Notes: If M emoria mg/mL 01-21 Diprivan - l (Titrate.) 17:31: change Nidia nn IV 1,000 mg 00 bottle & tubing every 12 hr Per state nursing law propofol can only be given by a nurse if patient is intubated or being intubated (unless the nurse is a WELDING 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 RESISTANCE). Same as: Diprivan midazolam No Route: IV, [...] n [XIFAXAN] 00 tab, 2 Refill(s), Pharmacy: [facility], 154.94, cm, 12/24/20 10:43:00 CDT, Height, 71.818, kg, 12/24/20 10:43:00 CDT, Weight {2 (480 ML Yes See Memoria Magnesium 7-06 Instructio l Sulfate 18:12: ns, take Jake n 0.0277 00 as MEQ/ML / directed, potassium give sulfate clenpiq if 0.0374 not MEQ/ML / covered by sodium insurance, sulfate # 1 ea, 0 0.257 Refill(s), MEQ/ML Oral Pharmacy: Solution) } [facility] [Suprep 808, Bowel Prep 154.94, [...] day, # 90 tab, 3 Refill(s), Pharmacy: [id number], 154.94, cm, 12/24/20 10:43:00 CDT, Height, 71.818, kg, 12/24/20 10:43:00 CDT, Weight Zinc 0 Yes 140 mg, Memoria 7-06 PO, Daily, l 15:54: 0 [place] 00 Refill(s) Elderberry 0 Yes 0 Memoria [...] Take 100 [facility] (Neurontin) 6-19 mg by [facility] 100 MG 00:00: mouth 1 capsule 00 (one) time each day. divalproex 2020-0 Yes 500mg Q.5D Take 500 [facility] (Depakote 6-19 mg by [facility] ER) 500 MG 00:00: mouth 2 24 hr 00 (two) tablet times a day. busPIRone 0 Yes 7.5mg Q.5D Take 7.5 UT (Buspar) 6-19 mg by [facility] 7.5 MG 00:00: mouth 2 tablet 00 (two) times a day. buPROPion Yes 300mg Take 300 [facility] XL 6-19 mg by [facility] (Wellbutrin 00:00: mouth 1 XL) 300 MG 00 (one) time 24 hr each day tablet in the morning. busPIRone Yes 7.5mg Take 7.5 Uni vers 7.5 mg 6-19 mg by ity of tablet 00:00: mouth 2 [place] 00 (two) Medical times Branch daily. metoprolol Yes 1{tbl} QD Take 1 [facility] mouth 1 (Toprol-XL) 00 (one) time 50 MG 24 hr each day. tablet ascorbic 0 Yes 500mg Q.95494206 Take 500 UT acid 5-15 [id number] mg by [facility] (Vitamin C) 00:00: 3D mouth 3 500 MG 00 (three) tablet times a day. sucralfate Yes 1{tbl} QD Take 1 [facility] (Carafate) 5-10 tablet by [facility] th 1 g tablet 00:00: mouth 1 00 (one) time each day. zinc 2020-0 Yes DAILY Univers sulfate 50 5-10 ity of mg zinc 00:00: [place] (220 mg) 00 Medical capsule Branch ondansetron 2020-0 Yes 4mg Take 4 mg U nivers 4 mg 4-13 by mouth ity of disintegrat 00:00: [place]. [place] tablet 00 Medical Branch GLIPIZIDE 5 Yes [id number] TAKE 1 Univers mg tablet -06 TABLET BY ity o f 00:00: MOUTH [place] 00 TWICE Medical DAILY Branch BEFORE BREAKFAST AND BEFORE SUPPER doxazosin 4 2020- No 4mg Take 4 mg Univers mg tablet 06-27 by mouth 2 ity of 10:52: 00:00 (two) [place] 22 :00 times Medical daily. Branch doxazosin 4 Yes 4mg Take 1 Univ ers mg tablet -07 tablet by ity o f 00:00: mouth at [place] 00 bedtime. Medical Branch doxazosin 4 Yes 4mg Take 1 Univ ers mg tablet - tablet by ity o f 00:00: mouth at [place] 00 bedtime. Medical Branch glipiZIDE 5 2019-06- No [id number] 5mg Take 1 Univers mg tablet 07-01- tablet by ity of 00:00: 00:00 mouth [...] by ity of tablet 00:00: mouth at [place] [address] bedtime. Medical Branch traZODone 0 Yes 150mg Take 150 Uni vers 150 mg 8-13 mg by ity of tablet 00:00: mouth at [place] [address] bedtime. Medical Branch erythromyci 2020- No [id number] .5[in_u Place 0.5 Univers n 5 mg/gram [...] as ophthalmic needed for drops Dry eyes. magnesium Yes 400mg QD Take [address] [facility] oxide 7-20 mg by [facility] (MAG-OX) 15:20: mouth Medical 400 mg 59 daily. Center tablet metoclopram Yes 10mg Q.29113673 Take [address] [facility] gadiel HCl 7-20 [id number] by mouth 3 [facility] (REGLAN) 10 15:20: [...] l 59 Center hydrALAZINE 2017-0 Yes 100mg Q.[id number] Take [address] [facility] (APRESOLINE 7-20 [id number] mg by L ukes ) 100 MG 15:20: 3D mouth 3 Medica l tablet 59 (three) Center times daily. magnesium 2017-0 Yes 400mg QD Take [address] oxide 7-20 mg by [facility] (MAG-OX) 15:20: mouth Medical 400 mg 59 daily. Center tablet metoclopram 2017-0 Yes 10mg Q.06772711 Take [address] [facility] gadiel HCl 7-20 [id number] by mouth 3 [facility] (REGLAN) 10 15:20: [...] l 59 Center hydrALAZINE 2017-0 Yes 100mg Q.23724832 Take [address] [facility] (APRESOLINE 7-20 [id number] mg by Misbah grayes ) 100 MG 15:20: 3D mouth 3 Medica l tablet 59 (three) Center times daily. magnesium 2017-0 Yes 400mg QD Take [address] oxide 7-20 mg by [facility] (MAG-OX) 15:20: mouth Medical 400 mg 59 daily. Center tablet metoclopram 2017-0 Yes 10mg Q.05175899 Take [address] [facility] gadiel HCl 7-20 [id number] by mouth 3 [facility] (REGLAN) 10 15:20: [...] l 59 Center hydrALAZINE 2017-0 Yes 100mg Q.12015142 Take [address] [facility] (APRESOLINE 7-20 [id number] mg by L ukes ) 100 MG 15:20: 3D mouth 3 Medica l tablet 59 (three) Center times daily. magnesium 2017-0 Yes 400mg QD Take [address] oxide 7-20 mg by [facility] (MAG-OX) 15:20: mouth Medical 400 mg 59 daily. Center tablet metoclopram 2017-0 Yes 10mg Q.22257375 Take [address] [facility] gadiel HCl 7-20 [id number] by mouth 3 [facility] (REGLAN) 10 15:20: [...] l 59 Center hydrALAZINE 2017-0 Yes 100mg Q.[id number] Take [address] [facility] (APRESOLINE 7-20 [id number] mg by L ukes ) 100 MG 15:20: 3D mouth 3 Medica l tablet 59 (three) Center times daily. magnesium 2017-0 Yes 400mg QD Take [address] oxide 7-20 mg by [facility] (MAG-OX) 15:20: mouth Medical 400 mg 59 daily. Center tablet metoclopram 2017-0 Yes 10mg Q.86265782 Take [address] [facility] gadiel HCl 7-20 [id number] by mouth 3 [facility] (REGLAN) 10 15:20: [...] l 59 Center hydrALAZINE 2017-0 Yes 100mg Q.[id number] Take [address] [facility] (APRESOLINE 7-20 [id number] mg by L ukes ) 100 MG 15:20: 3D mouth 3 Medica l tablet 59 (three) Center times daily. magnesium 2017-0 Yes 400mg QD Take [address] oxide 7-20 mg by [facility] (MAG-OX) 15:20: mouth Medical 400 mg 59 daily. Center tablet metoclopram 2017-0 Yes 10mg Q.[id number] Take [address] [facility] gadiel HCl 7-20 [id number] by mouth 3 [facility] (REGLAN) 10 15:20: [...] daily. Med ical tablet 59 Center medroxyPROG 2017- Yes Inject [facility] ESTERone 7-20 intramuscu [...] l 59 Center hydrALAZINE 2017-0 Yes 100mg Q.[id number] Take [address] (APRESOLINE 7-20 [id number] mg by L ukes ) 100 MG 15:20: 3D mouth 3 Medica l tablet 59 (three) Center times daily. insulin 2017-0 Yes 5U QD Inject 5 [...] = 1 Me moria 40 MG Oral 209 tab, PO, l Tablet 15:07: Daily, # Vin 00 30 tab, 0 Refill(s), Pharmacy: [id number] Bumex No 0.5 mg, Memoria 2 Route: PO, l 15:00: Drug form: Vin 00 TAB, Daily, Dosing Weight 92.273, kg, Start date: 07/30/16 9:00:00 OFFC SPEC, Duration: 30 day, Stop date: 08/28/16 9:00:00 OFFC SPEC Lasix No Notes: Memoria 2-08 (Same as: l 20:05: Lasix) October cause GI upset. Give with food or milk. Hydralazine No Notes: Mendoza janice 2-08 (Same as: l 06:05: Apresoline [place] 00 ) Push over 5 minutes sodium 2017-0 No 1,000 mL, Memori a chloride 2-05 Rate: 125 l 0.9% 1000 18:26: ml/hr, Jake n ml INJ 00 Infuse 1,000 mL over: 8 hr, Route: IV, Dosing Weight 92.273 kg, Total Volume: 1,000, Start date: 07/26/16 12:26:00 OFFC SPEC, Duration: 30 day, Stop date: 08/25/16 12:25:00 OFFC SPEC Sodium 2017-0 No 500 mL, Memoria Chloride 2-05 500 ml/hr, l 0.154 13:30: Infuse Vin MEQ/ML 00 Over: 1 Injectable hr, Route: Solution IV, 500, Drug form: INJ, ONCE, Priority: STAT, Dosing Weight 92.273 kg, Start date: 07/26/16 7:30:00 OFFC SPEC, Duration: 1 doses or times, Stop date: 07/26/16 7:30:00 OFFC SPEC Insulin 2016- No 60 units) Mendoza janice regular 2-04 WASTE: F/P l 08:39: - Black; E Vin 00 - Municipal Trash Bin Stable for 28 days at room temperatur e Expires in days from ____Date Insulin, No Notes: Memoria Aspart, 2-04 Roll in l Human 07:31: palms of [place] 00 hands gently; Do not shake vigorously . (Same as: NovoLOG) "single patient use only" WASTE: F/P - Black; E - Municipal Trash Bin Stable for 28 days at room temperatur e. Expires in days from ____Date Insulin, No Notes: Memoria Aspart, 2-04 Roll in l Human 05:42: palms of [place] 00 hands gently; Do not shake vigorously [...] Weight 92.273, kg, Start date: 07/24/16 9:00:00 OFFC SPEC, Duration: 30 day, Stop date: 08/22/16 9:00:00 OFFC SPEC 24 HR No Notes: Memoria Divalproex 2-03 [...] Memoria 2-03 Tablet l 15:00: should not [place] be chewed or crushed. (Same as: Protonix) metoprolol No 100 mg, 2 Me moria extended 2-03 tab, l release 15:00: Route: PO, Herm naeem Drug form: ERTAB, Daily, Start date: 07/24/16 9:00:00 OFFC SPEC, Duration: 30 day, Stop date: 08/22/16 9:00:00 OFFC SPEC Insulin No Notes: Memoria Glargine 2-03 Same [...] Roll in l Human 13:30: palms of Delevan 00 hands gently; Do not shake vigorously . (Same as: NovoLOG) "single patient use only" WASTE: F/P - Black; E - Municipal Trash Bin Stable for 28 days at room temperatur e. Expires in days from ____Date Dilaudid No Notes: Memoria 2-03 Same as l 11:28: Dilaudid Delevan 00 Insulin, 2017-0 No Notes: Memoria Aspart, 2-03 [...] Blood Glucose Results, Start date: 07/24/16 2:40:00 OFFC SPEC, Duration: 30 day, Stop date: 08/23/16 2:39:00 OFFC SPEC Dextrose No 25 gm, 50 Mendoza janice 50% Syringe 2-03 mL, Route: l 08:40: IVP, Drug Form: INJ, Dosing Weight 92.273, kg, PRN, PRN Blood Glucose Results, Start date: 07/24/16 2:40:00 OFFC SPEC, Duration: 30 day, Stop date: 08/23/16 2:39:00 OFFC SPEC Docusate No Notes: Memoria 2-03 (Same as: [...] Memori a 0.833 MG/ML - (Same as: 04:09: Duoneb) Vin Ipratropium 00 [place] 0.167 MG/ML Inhalant Solution [DuoNeb] Furosemide 2015-06 [...] INHALATION l 0.09 16:34: , PRN, PRN Delevan MG/ACTUAT 00 as needed Metered for Dose [...] Memoria 2-26 (Same as: l 15:00: Lasix) May Vin 00 cause GI upset. Give with food or milk. Magnesium 2015-06 No Notes: Memori a Oxide 2-24 (Same as: l 13:36: Mag-Ox Vin 00 400) Magnesium oxide 162ph=683m g elemental magnesium Dose=____m g magnesium oxide (___mg elemental magnesium) Magnesium 2015-06 No Notes: Memori a Oxide 2-24 (Same as: l 09:47: Mag-Ox Vin 00 400) Magnesium oxide 554hp=269k g elemental magnesium Dose=____m g magnesium oxide [...] XL 2-24 (Same as: l 00:00: Wellbutrin Delevan 00 XL) "Do Not Crush" Norvasc 2015-06 No Notes: Memoria 2-24 (Same as: l 00:00: Norvasc) Delevan 00 Insulin 2015-06 No Notes: Memoria Glargine [...] tab, PO, l tablet 15:35: Daily, 0 Dele[place] 00 Refill(s) pravastatin 2015-06 No 40 mg = 1 M emoria 40 mg oral 2-23 tab, PO, l tablet 15:35: Daily, 0 [place] 00 Refill(s) Sertraline 2015-06 Yes 200 mg [...] Weight 86.364, kg, Start date: 06/11/16 9:00:00 OFFC SPEC, Duration: 30 day, Stop date: 07/10/16 9:00:00 OFFC SPEC Insulin 2015-06 No Notes: Memoria Glargine 2-22 [...] -22 (Same as: l / 03:00: Duoneb) Delevan Ipratropium 00 [place] 0.167 MG/ML Inhalant Solution [DuoNeb] gabapentin 2015-06 No 300 mg, Mendoza janice 300 MG Oral 2-22 Route: PO, l Capsule 03:00: Drug form: Herm naeem 00 CAP, Q12H, Dosing Weight 86.364, kg, (CrCl 30 - 59 ml/min), Start date: 06/10/16 21:00:00 OFFC SPEC, Duration: 30 day, Stop date: 07/10/16 9:00:00 OFFC SPEC divalproex 2015-06 No Notes: Memor ia sodium 2-22 (Same as: l 03:00: Depakote Delevan 00 ER) Once daily dosing; indicated for migraines. Divalproex sodium extended-r elease tab. Do not chew or crush. "Do Not Crush" Losartan 2015-06 No Notes: Memoria 2-22 (Same as: l 03:00: Cozaar) [place] 00 Insulin, 2015-06 No Notes: Memoria Aspart, [...] Blood Glucose Results, Start date: 06/10/16 18:50:00 OFFC SPEC, Duration: 30 day, Stop date: 07/10/16 18:49:00 OFFC SPEC Glucagon 2015-06 No 1 mg, Memoria 2-22 Route: IM, l 00:50: Drug form: Delevan 00 PDR/INJ, PRN, Dosing Weight 86.364, kg, PRN Blood Glucose Results, Start date: 06/10/16 18:50:00 OFFC SPEC, Duration: 30 day, Stop date: 07/10/16 18:49:00 OFFC SPEC Hydralazine 2015-06 No Notes: Mendoza janice 2-22 [...] janice 2-22 Route: IV, l 00:06: ONCE, Delevan 00 Dosing Weight 86.364, kg, Start date: 06/10/16 18:06:00 OFFC SPEC, Stop date: 06/10/16 18:06:00 OFFC SPEC hydrOXYzine 2015-06 No Notes: Mendoza janice pamoate -21 (Same as: l 23:00: Vistaril) Furosemide 2015-06 No 60 mg, Memor ia -21 Route: l 22:32: IVP, Drug form: INJ, ONCE, Dosing Weight 86.364, kg, Start date: 06/10/16 16:32:00 OFFC SPEC, Stop date: 06/10/16 16:32:00 OFFC SPEC Lasix 2015-06 No Notes: Memoria 2-21 (Same as: l 17:22: Lasix) MEDICATION WASTE Product Size: 40 mg Product Wasted: _0__ mg Albuterol 2015-06 No Notes: Memori a 0.833 MG/ML -21 (Same as: l / 17:22: Duoneb) Ipratropium 00 [place] 0.167 MG/ML Inhalant Solution [DuoNeb] Promethazin Yes 25 mg = 1 M emoria e 1-06 supp, VT, l Hydrochlori 14:45: Q6H, Jake n de [...] Yes 0 Memoria 1-06 Refill(s) l 11:16: Vin 00 Sodium No 2,000 mL, Memori a Chloride [...] Rate: 125 l 0.9% IV 04:10: ml/hr, Delevan 1,000 mL 00 Infuse over: 8 hr, [...] Marx Rate: 500 l 0.9% 23:45: ml/hr, Delevan (Bolus) IV 00 Infuse 500 mL over: [...] insulin No Blake 10 unit, Mem oria isophane-LOGISTICS ADMINISTRATOR 6-11 Deangelo 0.1 mL, l H 02:00: [...] 6-10 Omidvar Route: l 21:33: IVP, ONCE, Delevan 00 Start date: 11/29/11 16:33:00, Stop date: 11/29/11 16:33:00 morphine No Bismark 2 mg, 0.5 Me moria Sulfate 6-10 Omidvar mL, Route: l 21:32: IVP, Drug form: INJ, ONCE, Start date: 11/29/11 16:32:00, Stop date: 11/29/11 16:32:00 Tylenol No Bismark 650 mg, 2 Mem oria 6-10 Omidvar tab, l 19:16: Route: PO, Delevan 00 Drug form: TAB, Q4H, PRN Pain, Start date: 11/29/11 14:16:00, Duration: 30 day, Stop date: 12/29/11 14:15:00 insulin 2011-0 No Blake 14 unit, Mem oria isophane-LOGISTICS ADMINISTRATOR 6-10 Deangelo 0.14 mL, l H 14:00: Brisa Route: Delevan SUB-Q, Drug form: INJ, Daily, Start date: [...] 30 day, Stop date: 12/28/11 17:00:00 amLODipine 2011- No Blake 5 mg, 1 M emoria 6-10 Deaneglo tab, l 14:00: Brisa Route: PO, Her braden 00 Drug form: TAB, Daily, Start date: 11/29/11 9:00:00, Duration: 30 day, Stop date: 12/28/11 9:00:00 insulin 2011-0 No Blake 10 unit, Mem oria aspart 6-10 Deangelo 0.1 mL, l 06:30: Brisa Route: Delevan 00 SUB-Q, Drug form: SOLN, TID-Before Meals, [...] mL, Route: l 04:01: Brown IVP, Drug Delevan 00 form: INJ, ONCE, Priority: STAT, Start date: 11/28/11 23:01:00, Stop date: 11/28/11 23:01:00 Zofran 2011-0 No Nikki 4 mg, 2 Mendoza janice 6-10 Sarah mL, Route: l 02:31: Brown IVP, Drug Delevan 00 form: INJ, ONCE, Priority: STAT, Start [...] 6-09 mL, Route: l 20:35: IVP, Drug Delevan 00 form: INJ, ONCE, Priority: STAT, Start date: 11/28/11 15:35:00, Stop date: 11/28/11 15:35:00 Novolin R 2011-0 Yes Hughes-Jason 8 unit, M emoria 100 3-30 [place] SUB-Q, l units/mL 17:47: Eunice Q12H, 2 He rmann injectable 42 Pu vial, solution Substituti on Allowed, SOLN Novolin N 0 Yes Hughes-Jason 10 unit, Memoria 100 3-30 [place] SUB-Q, l units/mL 17:46: Eunice Bedtime, H ermann subcutaneou 27 Pu 10 ml, s injection Substituti on Allowed, SUSP Novolin N Yes Hughes-Jason 14 unit, Memoria 100 3-30 [place] SUB-Q, l units/mL 17:44: Eunice QAM, 1 Her braden subcutaneou 37 Pu vial, s injection Substituti on Allowed, SUSP magnesium 2011- No Hughes-Jason 400 mg, 1 Memoria oxide 3-30 [place] tab, l 14:55: Eunice Route: PO, Her braden 00 Pu Drug form: TAB, ONCE, Priority: STAT, Start date: 09/18/11 9:55:00, Stop date: 09/18/11 9:55:00 Insulin 2011-0 No Hughes-Jason 8 unit, Mem oria regular 3-30 [place] 0.08 mL, l 14:22: Eunice Route: Vin 00 Pu SUB-Q, Drug form: SOLN, ONCE, Priority: STAT, Start date: 09/18/11 9:22:00, Stop date: 09/18/11 9:22:00 Lactated 2011-0 No Hughes-Jason 1,000 mL, Memoria Ringers 3-30 [place] Rate: l (Bolus) IV 14:16: Eunice 1,000 He rmann 1,000 mL 00 Pu ml/hr, Infuse over: 1 hr, Route: IV, Total Volume: 1,000, Bolus Dose, Priority: STAT, Start date: 09/18/11 9:16:00, Duration: 1 doses or times, Stop date: 09/18/11 10:15:00 Sodium 2011-0 No Hughes-Jason 1,000 mL, Me moria Chloride 3-30 [place] Rate: l 0.9% 14:06: Eunice 1,000 Vin (Bolus) IV 00 Pu ml/hr, 1000 mL Infuse over: 1 hr, Route: IV, kg, Total Volume: 1,000, Bolus Dose, Priority: STAT, Start date: 09/18/11 9:06:00, Duration: 1 doses or times, Stop date: 09/18/11 10:05:00 sulfamethox 2011- Yes Substituti Memoria azole 3-30 on Allowed l 14:04: Delevan 58 Sodium No Hughes-Jason 1,000 mL, Me moria Chloride 3-30 [place] Rate: l 0.9% 13:56: Dawson 1,000 Vin (Bolus) IV 00 Pu ml/hr, 1000 mL Infuse over: 1 hr, Route: IV, kg, Total Volume: 1,000, Bolus Dose, Priority: STAT, Start date: 09/18/11 8:56:00, Duration: 1 doses or times, Stop date: 09/18/11 9:55:00 clindamycin No Eber L 300 mg, 2 Memoria 3-21 Anabelle cap, l 21:00: Route: PO, Delevan 00 Drug form: CAP, Q8H, Start date: 09/09/11 16:00:00, Duration: 30 day, Stop date: 10/09/11 8:00:00 Colace 100 2011- Yes Luna 100 mg, 1 Memoria mg oral 3-21 Amelia cap, PO, l capsule 18:47: [place] BID, 60 Her braden 19 cap, Substituti on Allowed, CAP clindamycin Yes Luna 300 mg, 2 Memoria 150 mg oral 3-21 Amelia cap, PO, l capsule 18:46: Zeeshan Q8H, 30 Her braden 55 cap, Substituti on Allowed, CAP [place] Yes Luna 1 tab, PO, Memoria 10/325 oral 3-21 Amelia Q4H, PRN, l tablet 18:46: [place] 30 tab, Herm naeem 36 Pain, Substituti on Allowed, Maintenanc e, TAB [place] No Hollie Donavan 1 tab, Mendoza janice [...] Memoria 3-19 Josefina mL, Route: l 14:19: Edcouch IVP, Drug Jake n 00 form: INJ, PRN, PRN Benzodiaze pine Reversal, Initial dose, Start date: 09/07/11 9:19:00, Duration: 1 day, Stop date: 09/08/11 9:18:00 naloxone No Gayle 0.04 mg, Me moria 3-19 Josefina 0.1 mL, l 14:19: Edcouch Route: Vin 00 IVP, Drug form: INJ, [...] Josefina Route: PO, l one 325 14:19: Edcouch Drug Form: Tyrel rmnaeem mg-10 mg/15 00 SOLN, Q4H, mL oral PRN Pain solution Score 4-6, Start date: 09/07/11 9:19:00, Duration: 1 day, Stop date: 09/08/11 8:00:00 Lactated No Bismark 1,000 mL, Me moria Ringers IV 09-06 Omidvar Rate: 125 l 1,000 mL 14:06: ml/hr, Delevan 00 Infuse over: 8 hr, Route: IV, [...] 3-17 Omidvar tab, l 14:11: Route: PO, Delevan 00 Drug form: ERTAB, ONCE, Start date: 09/05/11 9:11:00, Stop date: 09/05/11 9:11:00 Dulcolax 2012-0 No Charbel A 10 mg, 2 M emoria Laxative 3-17 Wong tab, l 04:00: Route: PO, Vin 00 Drug form: ECTAB, Daily, PRN Constipati on, Priority: NOW, Start date: 09/04/11 23:00:00, Duration: 30 day, Stop date: 10/04/11 22:59:00 Zofran 2012-0 No Hecotr 4 mg, 2 Memori a 3-16 Hissam mL, Route: l 23:11: Peg IV, Drug Jake n 00 form: INJ, Q4H, PRN as needed for nausea/vom iting, Priority: NOW, Start date: 09/04/11 18:11:00, Duration: 30 day, Stop date: 10/04/11 18:10:00 [place] 2012-0 No Mahammad 1 tab, Memori a [...] Duration: 30 day, Stop date: 10/04/11 9:49:00 [place] 2011-0 No Bismark 1 tab, Memoria 10/325 oral 3-16 Omidvar Route: PO, l tablet 14:49: Drug Form: Nidia nn 00 TAB, Q4H, PRN Pain, Start date: 09/04/11 9:49:00, Stop date: 10/04/11 9:48:00 labetalol 2011-0 No Gregory F 5 mg, Mendoza janice 3-16 Puga Route: IV, l 14:40: ONCE, Delevan 00 Start date: 09/04/11 9:40:00, Stop date: [...] 3-15 Anabelle mL, Route: l 16:00: IVPB, Delevan 00 ABXQ8H, Start date: 09/03/11 11:00:00, Duration: 30 day, Stop date: 10/03/11 8:00:00 potassium 2011-0 No Bismark 40 mEq, 2 M emoria chloride 3-15 Omidvar tab, l 13:39: Route: PO, Delevan 00 Drug form: ERTAB, ONCE, Start date: 09/03/11 8:39:00, Stop date: 09/03/11 8:39:00 [place] 5/325 2011-0 No Rosalino 1 tab, M emoria oral tablet 3-15 Kavon Route: PO, l 05:00: Drug Form: Vin 00 TAB, Q4H, Start date: 09/03/11 0:00:00, Duration: 30 day, Stop date: 10/02/11 20:00:00 Geodon 2011-0 No Eber L 120 mg, 3 Memoria 3-15 Anabelle cap, l 02:00: Route: PO, Delevan 00 Drug form: CAP, Bedtime, Start date: [...] Duration: 30 day, Stop date: 10/02/11 9:00:00 [place] 5/325 2011-0 No Rosalino 1 tab, M [...] 3-14 Movva mL, Route: l 14:00: SUB-Q, Delevan 00 Drug form: INJ, Daily, Start date: 09/02/11 9:00:00, Duration: 30 day, Stop date: 10/01/11 9:00:00 vancomycin 2011-0 No Eber L 1 gm, Memoria 3-14 Anabelle Route: l 14:00: IVPB, Drug form: INJ, [id number], Start date: 09/02/11 9:00:00, Duration: 30 day, [...] 2011-0 No Bismark 15 unit, Mendoza janice isophane-LOGISTICS ADMINISTRATOR 3-14 Omidvar 0.15 mL, l H 02:00: Route: Delevan 00 SUB-Q, Drug form: INJ, Q12H, Start date: 09/01/11 21:00:00, Stop date: 10/01/11 9:00:00 labetalol 0 No Mariaelena-Corea 5 mg, Me moria 3-14 Barbra Route: l 01:07: Feliciano IVP, Vin 00 Q5Min, PRN Elevated BP, Start date: 09/01/11 20:07:00, Duration: 5 doses or times, Stop date: Limited # of times hydrALAZINE No Mariaelena-Corea 5 mg, Memoria 3-14 Barbra Route: l 01:07: Feliciano IVP, Delevan 00 Q5Min, PRN Elevated BP, Start date: 09/01/11 20:07:00, Duration: 4 doses or times, Stop date: Limited # of times hydromorpho No Mariaelena-Corea 0.5 mg, Memoria ne 3-14 Barbra Route: l 01:07: Feliciano IVP, Delevan 00 Q5Min, PRN Pain Score 4-6, Start date: 09/01/11 20:07:00, Duration: 5 doses or times, Stop date: Limited # of times naloxone No Mariaelena-Corea 0.04 mg, Memoria 3-14 Barbra Route: l 01:07: Feliciano IVP, Delevan 00 Q2MIN, PRN Narcotic Reversal, Start date: [...] 3-14 Gauvain Route: l 01:00: IVPB, Drug Delevan 00 form: INJ, [id number], Start date: 09/01/11 20:00:00, Duration: 30 day, [...] Route: l 00:00: IVPB, Drug form: INJ, [id number], Start date: 09/01/11 19:00:00, Duration: 30 day, Stop date: 10/01/11 7:00:00 insulin 2011- No Missael 6 unit, Memori a aspart 3-13 Movva 0.06 mL, l 23:23: Route: Delevan 00 SUB-Q, Drug form: SOLN, TID-Before Meals, PRN Blood Glucose Results, Start date: 09/01/11 18:23:00, Duration: 30 day, Stop date: 10/01/11 18:22:00 glucagon 2011- No Missael 1 mg, Memoria 3-13 Movva Route: IM, l 23:23: Drug form: PDR/INJ, PRN, PRN Blood Glucose Results, Start date: 09/01/11 18:23:00, Duration: 30 day, Stop date: 10/01/11 18:22:00 Dextrose No Missael 25 gm, 50 Mem oria [...] mL, Me moria Ringers IV 3-13 Manuel Los Alvarez Rate: 100 l 1,000 mL 19:03: ml/hr, Delevan 00 Infuse over: 10 hr, Route: IV, Dosing Weight 68.182 kg, Total Volume: 1,000, Start date: 09/01/11 14:03:00, Duration: 30 day, Stop date: 10/01/11 14:02:00 morphine 2011-0 No [place] 4 mg, 1 Memori a Sulfate 3-13 Madedn mL, Route: l 17:13: Gurinder IVP, Drug Jaek n 00 form: INJ, ONCE, Start date: [...] Madden 0.08 mL, l 15:28: Gurinder Route: Delevan 00 SUB-Q, Drug form: SOLN, ONCE, Priority: [...] 08-31 [place] Rate: l 0.9% 10:41: 1,000 Delevan (Bolus) IV 00 ml/hr, 1000 mL Infuse [...] 08-31 Cruzito Route: l 09:06: IVP, ONCE, Delevan 00 Priority: STAT, Start date: 09/01/11 4:06:00, Stop date: 09/01/11 4:06:00 Sodium 2011-0 No Bee L 1,000 mL, M emoria Chloride 08-31 [place] Rate: l 0.9% 08:42: 1,000 Delevan (Bolus) IV 00 ml/hr, 1000 mL Infuse over: 1 hr, Route: IV, Dosing Weight 68.182 kg, Total Volume: 1,000, Bolus Dose, Priority: STAT, Start date: 09/01/11 3:42:00, Duration: 1 doses or times, Stop date: 09/01/11 4:41:00 Insulin 2011-0 No Bee L 8 unit, Me moria regular 08-31 [place] 0.08 mL, l 08:30: Route: Vin 00 IVP, Drug form: SOLN, ONCE, Priority: STAT, Start date: 09/01/11 3:30:00, Stop date: 09/01/11 3:30:00 Sodium 2011-0 No Bee L 1,000 mL, M emoria Chloride 3-13 [place] Rate: l 0.9% 07:29: 1,000 Delevan (Bolus) IV 00 ml/hr, 1,000 mL Infuse over: 1 hr, Route: IV, Dosing Weight 68.182 kg, Total Volume: 1,000, Bolus Dose, Priority: STAT, Start date: 09/01/11 2:29:00, Duration: 1 doses or times, Stop date: 09/01/11 3:28:00 potassium No Velásquez Noam 40 mEq, 2 Memoria chloride 3-04 Akmal tab, l 15:00: Route: PO, Delevan 00 Drug form: ERTAB, BID, Start date: [...] 3-04 Akmal 100 mL, l 14:00: Route: Delevan 00 IVPB, Drug form: INJ, Q2H, Start [...] Rodriguez 10 mL, l 16:25: Ahmed Route: Delevan 00 IVPB, ONCE, Start date: 08/22/11 10:25:00, [...] Akmal mL, Route: l 13:26: IVPB, Drug Delevan 00 form: INJ, ONCE, Total dose = [...] Yury 20 mEq, Me moria chloride 3-02 [place] 100 mL, l 15:12: Rivero Route: Nidia [...] mL, Route: l 17:15: Ahmed IVP, Drug Delevan form: INJ, Q8H, PRN Nausea, Start date: 08/20/11 11:15:00, Duration: 30 day, Stop date: 09/19/11 11:14:00 insulin 2012-0 No Yury 10 unit, Mem oria isophane-LOGISTICS ADMINISTRATOR 3- Gato Route: l H 16:00: Rivero [...] tab, PO, l tablet 15:35: BID, 60 Delevan 25 tab, Substituti on Allowed, TAB Geodon 60 2011- Yes 120 mg, 2 Mem oria mg oral 3- cap, PO, l capsule 15:35: Bedtime, Jake n 12 60 cap, Substituti on Allowed, CAP insulin No Yury 10 unit, Mem oria isophane-LOGISTICS ADMINISTRATOR 3- G[place] Route: l H 15:00: Rivero [...] Allowed insulin No 10 unit, Memori a isophane-LOGISTICS ADMINISTRATOR 3 SUB-Q, l H 09:26: BID, Vin [...] enoxaparin No Yury 40 mg, 0.4 Memoria 08-19 [place] mL, Route: l 09:00: Rivero SUB-Q, Nidia nn 00 Drug form: INJ, Daily, Priority: Routine, Start date: 08/20/11 3:00:00, Duration: 30 day, Stop date: 09/18/11 9:00:00 insulin 2011- No Yury 18 unit, Mem oria isophane-LOGISTICS ADMINISTRATOR - [place] 0.18 mL, l H 08:58: [...] 2011- No Yury 1 mg, Memor ia - G[place] Route: IM, l 08:48: Rivero Drug form: H ermann 00 PDR/INJ, PRN, PRN Blood Glucose Results, Start date: 08/20/11 2:48:00, Duration: 30 day, Stop date: 09/19/11 3:47:00 Dextrose No [facility] 25 g[facility], [facility] Syringe 08-19 Gato mL, Route: l [...] 2011-0 No Yury 25 gm, 50 M emori 50% Syringe 3 [place] ml, Route: l 08:46: Rivero IVP, Drug He rmann 00 Form: INJ, PRN, PRN Blood Glucose Results, Start date: 08/20/11 2:46:00, Duration: 30 day, Stop date: 09/19/11 3:45:00 ondansetron 2011-0 No [facility] [place] Route: l 07:42: Eunice IVP, Drug Herm naeem 00 Pu form: INJ, ONCE, Priority: STAT, Start date: 08/20/11 1:42:00, Stop date: 08/20/11 1:42:00 GI cocktail 2011-0 No Hughes-Jason 30 ml, Memoria 08-19 [place] Route: PO, l 05:12: Dawson Drug Form: Her braden 00 Pu SUSP, ONCE, STAT, Start date: 08/19/11 23:12:00, Stop date: 08/19/11 23:12:00 ondansetron No Hughes-Jason 4 mg, [facility] 08-19 [place] Route: PO, l 05:10: Dawson Drug form: Her braden 00 Pu TABDIS, ONCE, Priority: STAT, Start date: 08/19/11 23:10:00, Stop date: 08/19/11 23:10:00 Lactated 2011-0 No Hughes-Jason 1,000 mL, Memoria Ringers 08-19 [place] Rate: l (Bolus) IV 05:10: Eunice 1,000 He rmann 1000 mL 00 Pu ml/hr, Infuse over: 1 hr, Route: IV, Total Volume: 1,000, Bolus Dose, Priority: STAT, Start date: 08/19/11 23:10:00, Duration: 1 doses or times, Stop date: 08/20/11 0:09:00 Insulin 2011-0 No Hughes-Jason 7 unit, Mem oria regular 08-19 [place] 0.07 mL, l 04:15: Eunice Route: Delevan 00 Pu SUB-Q, Drug form: SOLN, ONCE, Priority: STAT, Start date: 08/19/11 22:15:00, Stop date: 08/19/11 22:15:00 Geodon 60 No Yury 60 mg, 1 M emoria mg oral - [place] cap, PO, l capsule 23:24: Rivero BID, 180 Vin 43 cap, Substituti on Allowed, CAP trazodone No 300 mg, 1 Mem oria 300 mg oral 2-29 tab, PO, l tablet 23:23: Bedtime, Delevan 58 15 tab, Substituti on Allowed, TAB Effexor XR Yes Yury 75 mg, 1 Memoria 75 mg oral - Gato cap, PO, l capsule, 23:22: Rivero [...] 2020-02-20 Completed [facility] 00:00:00 [facility] Influenza Virus 2020-02-20 Completed [facility] Vaccine 00:00:00 [facility] TDAP (ADACEL) VACCINE 2019-07-25 Completed Uni versity of 00:00:00 [facility] Meningococcal B, OMV 2019-07-25 Completed Univ ersity of 00:00:00 [facility] Meningococcal 2019-07-25 Completed [facility] 00:00:00 [facility] tawnya (groups A, C, Y and Branc h W-135) conjugate vaccine (MCV4P) TDAP (ADACEL) VACCINE 2019-07-25 Completed Uni versity of 00:00:00 [facility] Meningococcal B, OMV 2019-07-25 Completed Univ ersity of 00:00:00 [facility] Meningococcal 2019-07-25 Completed [facility] of Polysaccharide 00:00:00 [facility] tawnya (groups A, C, Y and Branc h W-135) conjugate vaccine (MCV4P) Influenza Virus 2019-02-27 Completed [facility] Vaccine Quad .5 mL IM 00:00:00 [facility] 6[facility] Influenza Virus 2019-02-27 Completed [facility] Vaccine Quad .5 mL IM 00:00:00 [facility] 6+ [facility] hepatitis B vaccine 2018-04-07 Completed Memor ial Delevan 00:00:00 influenza virus 2018-03-29 Completed [facility] vaccine, inactivated 00:00:00 hepatitis B vaccine 2017-11-26 Completed Memor ial Vin 00:00:00 influenza virus 2017-10-25 [facility], inactivated 00:00:00 pneumococcal 2017-10-[address] [facility] 23-valent vaccine 00:00:00 Influenza Virus 2017-06-22 Completed [facility] Vaccine Quad IM 3+ 00:00:00 [facility] Influenza Virus 2017-06-22 Completed [facility] Vaccine Quad IM 3+ 00:00:00 [facility] Influenza Virus 2016-04-02 Completed [facility] Vaccine Quad IM 3+ 00:00:00 [facility] Influenza Virus 2016-04-02 Completed [facility] of Vaccine Quad IM 3+ 00:00:00 [facility] Influenza Virus 2015-10-28 Completed [facility] Vaccine Quad IM 3+ 00:00:00 [facility] Influenza Virus 2015-10-28 Completed [facility] Vaccine Quad IM 3+ 00:00:00 [facility] Vital Signs Vital Name Observation Time Observation Value Comments Source Systolic blood 2021-01-03 12:57:00 201 mm[Hg] [facility] Diastolic blood 2021-01-03 12:57:00 104 mm[Hg] [facility] Heart rate 2021-01-03 12:57:00 73 [facility] Body temperature 2021-01-03 12:57:00 36 [facility] height 2021-01-03 12:57:00 [facility] weight 2021-01-03 12:57:00 72.122 kg [...] h BMI 2021-01-03 12:57:00 28.17 kg/m2 [facility] Systolic blood 2020-06-27 16:33:00 171 mm[Hg] [facility] Diastolic blood 2020-06-27 16:33:00 98 mm[Hg] [facility] Heart rate 2020-06-27 16:33:00 71 /min [facility] Respiratory rate 2020-06-27 16:29:00 19 /min [facility] Body height 2020-06-27 16:29:[address] [facility] Body weight 2020-06-27 16:29:[address] [facility] BMI 2020-06-27 16:29:00 32.20 kg/m2 [facility] Oxygen saturation in 2020-06-27 16:29:00 99 /min [facility] Arterial blood by [facility] Pulse oximetry Branch Height/Length 2021-07-08 11:50:13 154.9 cm Measured Weight Dosing 2021-07-08 11:50:13 85.00 kg Height/Length 2021-07-08 11:47:31 154.9 cm Measured Weight Dosing 2021-07-08 11:47:31 85.00 kg Height/Length 2021-07-08 11:47:20 154.9 cm Measured Weight Dosing 2021-07-08 11:47:20 85.00 kg Systolic blood 2021-07-08 19:43:00 189 mm[Hg] Method [facility] pressure Diastolic blood 2021-07-08 19:43:00 104 mm[Hg] [facility] pressure Heart rate 2021-07-08 18:56:00 74 /min [facility] Body temperature 2021-07-08 18:56:00 36.39 Cathleen [facility] Body height 2021-07-08 18:56:00 157.5 cm [facility] Body weight 2021-07-08 18:56:00 72.938 kg [facility] BMI 2021-07-08 18:56:00 29.41 kg/m2 [facility] Oxygen saturation in 2021-07-08 18:56:00 100 /min [facility] Arterial blood by Pulse oximetry Respiratory rate 2021-06-18 16:36:00 11 /min [facility] Systolic (mm Hg) 2021-01-29 20:03:00 Mendoza rial Vin Diastolic (mm Hg) 2021-01-29 20:03:00 Mem orial Vin Systolic (mm Hg) 2021-01-29 19:40:00 Mendoza rial Vin Diastolic (mm Hg) 2021-01-29 19:40:00 Mem orial Vin Systolic (mm Hg) 2021-01-29 18:05:00 Mendoza rial [place] Diastolic (mm Hg) 2021-01-29 18:05:00 Mem orial Vin Respitory Rate 2021-01-29 16:55:00 Memori al [place] Temperature Oral (F) 2021-01-29 16:45:00 97.3 F [facility] [place] Respitory Rate 2021-01-29 16:45:00 Memori al Vin Respitory Rate 2021-01-29 16:30:00 [facility] [place] Temperature Oral (F) 2021-01-29 13:10:00 97.6 F [facility] [place] Systolic (mm Hg) 2021-01-27 05:00:00 Mendoza rial [place] Diastolic (mm Hg) 2021-01-27 05:00:00 Mem orial [place] Systolic (mm Hg) 2021-01-27 04:00:00 Mendoza rial Vin Diastolic (mm Hg) 2021-01-27 04:00:00 Mem orial [place] Systolic (mm Hg) 2021-01-27 03:00:00 Mendoza rial Vin Diastolic (mm Hg) 2021-01-27 03:00:00 Mem orial [place] Respitory Rate 2021-01-26 19:00:00 [facility] [place] Respitory Rate 2021-01-26 18:00:00 [facility] [place] Respitory Rate 2021-01-26 17:00:00 [facility] [place] Temperature Oral (F) 2021-01-22 13:00:00 97.6 F [facility] [place] Height 2021-01-21 18:25:00 149.86 cm [facility] Weight 2021-01-21 18:25:00 [facility] BMI Calculated 2021-01-21 18:25:00 [facility] Height 2021-01-21 17:09:00 157.48 cm [facility] Height 2021-01-21 13:09:00 157.48 cm [facility] Weight 2021-01-21 13:09:00 [facility] BMI Calculated 2021-01-21 13:09:00 [facility] Heart Rate 2021-01-21 12:50:00 [facility] Systolic (mm Hg) 2020-12-24 15:43:00 [facility] Diastolic (mm Hg) 2020-12-24 15:43:00 [facility] Heart Rate 2020-12-24 15:43:00 [facility] Height 2020-12-24 15:43:00 154.94 cm [facility] Weight 2020-12-24 15:43:00 [facility] BMI Calculated 2020-12-24 15:43:00 [facility] Systolic (mm Hg) 2016-07-30 14:00:00 [facility] Diastolic (mm Hg) 2016-07-30 14:00:00 [facility] Respitory Rate 2016-07-30 14:00:00 [facility] Heart Rate 2016-07-30 14:00:00 [facility] Temperature Oral (F) 2016-07-30 14:00:00 97.4 F [facility] Systolic (mm Hg) 2016-07-30 10:45:00 [facility] Vin Diastolic (mm Hg) 2016-07-30 10:45:00 [facility] Heart Rate 2016-07-30 10:45:00 [facility] Temperature Oral (F) 2016-07-30 10:45:00 97.2 F [facility] Respitory Rate 2016-07-30 10:45:00 [facility] Heart Rate 2016-07-30 06:35:00 [facility] Temperature Oral (F) 2016-07-30 06:35:00 97.0 F [facility] Respitory Rate 2016-07-30 06:35:00 [facility] Systolic (mm Hg) 2016-07-30 06:35:00 [facility] Diastolic (mm Hg) 2016-07-30 06:35:00 [facility] Weight 2016-07-24 02:13:00 [facility] BMI Calculated 2016-07-24 02:13:00 [facility] Height 2016-07-24 02:13:00 160.02 cm [facility] Respitory Rate 2016-06-15 15:00:00 [facility] Systolic (mm Hg) 2016-06-15 15:00:00 [facility] Diastolic (mm Hg) 2016-06-15 15:00:00 [facility] Respitory Rate 2016-06-15 14:00:00 [facility] Systolic (mm Hg) 2016-06-15 14:00:00 [facility] Diastolic (mm Hg) 2016-06-15 14:00:00 [facility] Respitory Rate 2016-06-15 13:29:00 [facility] Systolic (mm Hg) 2016-06-15 13:29:00 [facility] Diastolic (mm Hg) 2016-06-15 13:29:00 [facility] Temperature Oral (F) 2016-06-14 10:56:00 97.1 F [facility] Temperature Oral (F) 2016-06-14 06:55:00 97.1 F [facility] Temperature Oral (F) 2016-06-12 10:00:00 96.8 F [facility] Weight 2016-06-11 04:25:00 [facility] Height 2016-06-11 04:25:00 160.02 cm [facility] BMI Calculated 2016-06-11 04:25:00 [facility] Heart Rate 2016-06-11 02:04:00 [facility] Heart Rate 2016-06-11 00:00:00 [facility] Heart Rate 2016-06-10 20:30:00 [facility] Weight 2016-06-10 16:04:00 [facility] BMI Calculated 2016-06-10 16:04:00 [facility] Height 2016-06-10 16:04:00 160.02 cm [facility] Temperature Oral (F) 2014-06-26 15:12:00 98.0 F [facility] Systolic (mm Hg) 2014-06-26 15:12:00 [facility] Heart Rate 2014-06-26 15:12:00 [facility] Diastolic (mm Hg) 2014-06-26 15:12:00 [facility] Respitory Rate 2014-06-26 15:12:00 [facility] Systolic (mm Hg) 2014-06-26 13:53:00 [facility] Diastolic (mm Hg) 2014-06-26 13:53:00 [facility] Respitory Rate 2014-06-26 13:53:00 [facility] Temperature Oral (F) 2014-06-26 13:53:00 98.0 F [facility] Temperature Oral (F) 2014-06-26 12:37:00 98.2 F [facility] Respitory Rate 2014-06-26 12:37:00 [facility] Systolic (mm Hg) 2014-06-26 12:37:00 [facility] Diastolic (mm Hg) 2014-06-26 12:37:00 [facility] Heart Rate 2014-06-26 09:21:00 [facility] Heart Rate 2014-06-26 06:08:00 [facility] Height 2014-06-26 05:35:00 154.94 cm [facility] Weight 2014-06-26 05:35:00 [facility] BMI Calculated 2014-06-26 05:35:00 [facility] Respitory Rate 2013-04-15 06:10:00 [facility] Diastolic (mm Hg) 2013-04-15 06:10:00 [facility] Heart Rate 2013-04-15 06:10:00 [facility] Systolic (mm Hg) 2013-04-15 06:10:00 [facility] Temperature Oral (F) 2013-04-15 06:10:00 98.7 F [facility] Respitory Rate 2013-04-15 05:37:00 [facility] Diastolic (mm Hg) 2013-04-15 05:37:00 [facility] Systolic (mm Hg) 2013-04-15 05:37:00 [facility] Temperature Oral (F) 2013-04-15 05:37:00 98.2 F [facility] Heart Rate 2013-04-15 05:37:00 [facility] Height 2013-04-15 02:06:00 160.02 cm [facility] Weight 2013-04-15 02:06:00 [facility] Temperature Oral (F) 2013-04-15 02:06:00 98.6 F [facility] Respitory Rate 2013-04-15 02:06:00 [facility] Heart Rate 2013-04-15 02:06:00 [facility] Diastolic (mm Hg) 2013-04-15 02:06:00 [facility] Systolic (mm Hg) 2013-04-15 02:06:00 [facility] Weight 2012-03-14 21:33:00 [facility] Systolic (mm Hg) 2011-12-01 00:33:00 [facility] Respitory Rate 2011-12-01 00:33:00 [facility] Heart Rate 2011-12-01 00:33:00 [facility] Diastolic (mm Hg) 2011-12-01 00:33:00 [facility] Temperature Oral (F) 2011-12-01 00:33:00 99.6 F [facility] Diastolic (mm Hg) 2011-11-30 21:00:00 [facility] Heart Rate 2011-11-30 21:00:00 [facility] Respitory Rate 2011-11-30 21:00:00 [facility] Systolic (mm Hg) 2011-11-30 21:00:00 [facility] Temperature Oral (F) 2011-11-30 21:00:00 99.8 F [facility] Respitory Rate 2011-11-30 16:30:00 [facility] Systolic (mm Hg) 2011-11-30 16:30:00 [facility] Diastolic (mm Hg) 2011-11-30 16:30:00 [facility] Heart Rate 2011-11-30 16:30:00 [facility] Temperature Oral (F) 2011-11-30 16:30:00 99.8 F [facility] Weight 2011-11-29 11:40:00 [facility] Height 2011-11-29 11:40:00 157.48 cm [facility] Weight 2011-11-28 17:16:00 [facility] Weight 2011-09-18 13:30:00 [facility] Height 2011-09-18 13:30:00 154.94 cm [facility] Heart Rate 2011-09-09 13:31:00 [facility] Systolic (mm Hg) 2011-09-09 13:02:00 [facility] Diastolic (mm Hg) 2011-09-09 13:02:00 [facility] Respitory Rate 2011-09-09 13:02:00 [facility] Temperature Oral (F) 2011-09-09 13:02:00 97.5 F [facility] Diastolic (mm Hg) 2011-09-09 08:00:00 [facility] Heart Rate 2011-09-09 08:00:00 [facility] Temperature Oral (F) 2011-09-09 08:00:00 98.6 F [facility] Respitory Rate 2011-09-09 08:00:00 [facility] Systolic (mm Hg) 2011-09-09 08:00:00 [facility] Respitory Rate 2011-09-09 04:55:00 [facility] Diastolic (mm Hg) 2011-09-09 04:55:00 [facility] Systolic (mm Hg) 2011-09-09 04:55:00 [facility] Heart Rate 2011-09-09 04:55:00 [facility] Temperature Oral (F) 2011-09-09 00:55:00 98.7 F [facility] Weight 2011-09-01 19:59:00 [facility] Height 2011-09-01 19:59:00 154.94 cm [facility] Height 2011-09-01 07:01:00 154.94 cm [facility] Weight 2011-09-01 07:01:00 [facility] Respitory Rate 2011-08-23 18:00:00 [facility] Heart Rate 2011-08-23 18:00:00 [facility] Systolic (mm Hg) 2011-08-23 18:00:00 [facility] Diastolic (mm Hg) 2011-08-23 18:00:00 [facility] Temperature Oral (F) 2011-08-23 18:00:00 97.7 F [facility] Heart Rate 2011-08-23 14:24:00 [facility] Temperature Oral (F) 2011-08-23 14:24:00 98.2 F [facility] Diastolic (mm Hg) 2011-08-23 14:24:00 [facility] Systolic (mm Hg) 2011-08-23 14:24:00 [facility] Respitory Rate 2011-08-23 14:24:00 [facility] Systolic (mm Hg) 2011-08-23 11:15:00 [facility] Diastolic (mm Hg) 2011-08-23 11:15:00 [facility] Temperature Oral (F) 2011-08-23 11:00:00 98.3 F [facility] Heart Rate 2011-08-23 11:00:00 [facility] Respitory Rate 2011-08-22 22:00:00 [facility] Height 2011-08-20 09:12:00 154.94 cm [facility] Weight 2011-08-20 09:12:00 [facility] Height 2011-08-19 20:28:00 154.94 cm [facility] Weight 2011-08-19 20:28:00 [facility] Procedures Procedure Date / Time Performing Clinician Source Performed POC GLUCOSE 2021-06-18 17:00:00 Aurelio Schumacher HEPATITIS B SURFACE 2021-06-18 14:07:00 Bill Cooper [facility] ANTIGEN VANCOMYCIN LEVEL, RANDOM 2021-06-18 13:44:00 Char Viramontes [facility] HC COMPLETE BLD COUNT 2021-06-18 13:44:00 Endy [facility] W/AUTO DIFF BASIC METABOLIC PANEL 2021-06-18 11:27:00 Endy [facility] ESTIMATED GFR 2021-06-18 11:27:00 Aurelio Schumacher POC GLUCOSE 2021-06-18 08:07:00 Aurelio Schumacher spital HEMODIALYSIS 2021-06-18 06:16:53 Kenneth Bill [facility]ist spital POC GLUCOSE 2021-06-18 01:26:00 Endy Aurelio [facility] spital POC GLUCOSE 2021-06-17 21:58:00 Faiza Schumacherpallavi [facility] Ho spital HEMODIALYSIS 2021-06-17 18:25:45 Kenneth Bill Whyte spital POC GLUCOSE 2021-06-17 17:36:00 Endy Aurelio [facility] POC GLUCOSE 2021-06-17 13:51:00 Aurelio Schumacher spital BASIC METABOLIC PANEL 2021-06-17 11:16:00 [facility] HC COMPLETE BLD COUNT 2021-06-17 11:16:00 [facility] W/AUTO DIFF ESTIMATED GFR 2021-06-17 11:16:00 [facility] POC GLUCOSE 2021-06-17 02:50:00 [facility] CONSULT TO OSTOMY CARE 2021-06-17 00:31:48 [facility] NURSE HC COMPLETE BLD COUNT 2021-06-16 23:31:00 [facility] W/AUTO DIFF BASIC METABOLIC PANEL 2021-06-16 23:31:00 [facility] ESTIMATED GFR 2021-06-16 23:31:00 [facility] POC GLUCOSE 2021-06-16 23:19:00 [facility] [place] < 1 HOUR 2021-06-16 22:49:00 [facility] 2021-06-16 22:36:00 [facility]US [facility] 2021-06-16 22:36:00 [facility] 2021-06-16 22:36:00 Mando Diaz [facility] GRAM STAIN 2021-06-16 22:36:00 Mando Diaz [facility] [place] AN ELECTIVE 2021-06-16 21:30:00 Jocelyne Zepeda [facility] SUPRAGLOTTIC AIRWAY AORTOGRAPHY, POSSIBLE 2021-06-16 21:17:00 Mando Diaz [facility] ANGIOPLASTY [facility] POC , URINE 2021-06-16 20:46:00 [facility] POTASSIUM LEVEL 2021-06-16 17:28:00 Isabell Dickerson [facility] Larry Romero POC GLUCOSE 2021-06-16 11:39:00 [facility] BASIC METABOLIC PANEL 2021-06-16 10:08:00 [facility] HC COMPLETE BLD COUNT 2021-06-16 10:08:00 [facility] W/AUTO DIFF PROTHROMBIN TIME WITH INR 2021-06-16 10:08:00 [facility] PARTIAL THROMBOPLASTIN 2021-06-16 10:08:00 [facility] TIME (PTT) TYPE AND SCREEN 2021-06-16 10:08:00 [facility] ESTIMATED GFR 2021-06-16 10:08:00 [facility] POC GLUCOSE 2021-06-16 01:59:00 [facility] POC GLUCOSE 2021-06-15 22:58:00 [facility] COVID-19 QUALITATIVE 2021-06-15 19:29:[address] [facility] [facility]SE 2021-06-15 17:42:00 [facility] HEMODIALYSIS 2021-06-15 16:17:54 Delfino Akbar [facility] POC GLUCOSE 2021-06-15 15:41:00 [facility] POC GLUCOSE 2021-06-15 13:44:00 [facility] POC GLUCOSE 2021-06-15 13:00:00 [facility] ECG 12-LEAD 2021-06-15 12:48:21 Leni Barkergabe HC COMPLETE BLD COUNT 2021-06-15 11:42:00 [facility] W/AUTO DIFF BASIC METABOLIC PANEL 2021-06-15 11:42:00 [facility] ESTIMATED GFR 2021-06-15 11:42:00 [facility] POC GLUCOSE 2021-06-15 01:31:00 [facility] US DUPLEX ARTERIAL LOWER 2021-06-14 21:55:33 [facility] EXTREMITY RIGHT POC GLUCOSE 2021-06-14 21:51:00 [facility] POC GLUCOSE 2021-06-14 17:36:00 [facility] POC GLUCOSE 2021-06-14 13:30:00 [facility] POC GLUCOSE 2021-06-14 13:29:00 [facility] HC COMPLETE BLD COUNT 2021-06-14 10:13:00 [facility] W/AUTO DIFF BASIC METABOLIC PANEL 2021-06-14 10:13:00 [facility] ESTIMATED GFR 2021-06-14 10:13:00 [facility] POC GLUCOSE 2021-06-14 02:45:00 [facility] POC GLUCOSE 2021-06-13 21:47:00 [facility] POC GLUCOSE 2021-06-13 20:46:00 [facility] CBC WITH PLATELET AND 2021-06-13 16:10:00 [facility] DIFFERENTIAL COMPREHENSIVE METABOLIC 2021-06-13 16:10:00 [facility] PANEL ESTIMATED GFR 2021-06-13 16:10:00 [facility] HEMODIALYSIS 2021-06-13 15:26:[facility]SE 2021-06-13 14:30:00 [facility] VANCOMYCIN LEVEL, RANDOM 2021-06-13 10:59:00 Juwan You [facility] POC GLUCOSE 2021-06-13 10:40:00 [facility] POC GLUCOSE 2021-06-13 02:28:00 [facility] POC GLUCOSE 2021-06-13 00:16:00 [facility] POC GLUCOSE 2021-06-12 23:31:00 [facility] POC GLUCOSE 2021-06-12 23:14:00 [facility] POC GLUCOSE 2021-06-12 18:19:00 [facility] POC GLUCOSE 2021-06-12 14:37:00 [facility] POC GLUCOSE 2021-06-12 14:01:00 [facility] POC GLUCOSE 2021-06-12 03:03:00 Holden Nagel spital [facility] CT HEAD WO CONTRAST 2021-06-12 00:53:00 [facility] P[facility] 2021-06-11 18:08:00 Holden Nagel spital [place] POC GLUCOSE 2021-06-11 13:39:00 Holden Nagel Ho spital [place] HEMODIALYSIS 2021-06-11 12:38:38 [facility] 2021-06-11 02:01:00 Holden Nagel Ho spital [place] POC GLUCOSE 2021-06-10 22:15:00 Holden Nagel Ho spital [place] POC GLUCOSE 2021-06-10 17:39:00 Holden Nagel Ho spital [place] POC GLUCOSE 2021-06-10 16:05:00 Holden Nagel Ho spital [place] TISSUE CULTURE 2021-06-10 15:08:00 Juwan Youist spital GRAM STAIN 2021-06-10 15:08:00 Kenyatta, Juwancaron HolmanL[facility] ANAEROBIC C[facility] 2021-06-10 15:04:00 [facility] FUNGUS CULTURE 2021-06-10 15:04:00 Kenyatta, Juwancaron Whyte spital AEROBIC CULTURE 2021-06-10 15:04:00 Kenyatta, Juwan [facility] sp[facility] [employer] CULTURE 2021-06-10 15:04:00 Kenyatta, [place] [facility] GRAM STAIN 2021-06-10 15:04:00 Kenyatta, [place] [facility] sp[facility] [employer] STAIN 2021-06-10 15:04:00 Kenyatta, [place] [facility] [place] AN ELECTIVE 2021-06-10 14:26:00 Sofi Roach spital SUPRAGLOTTIC AIRWAY Marquita INCISION AND DRAINAGE, 2021-06-10 14:26:00 Kenyatta, [facility] LOWER EXTREMITY HC COMPLETE BLD COUNT 2021-06-10 10:20:00 , [facility] W/AUTO DIFF BASIC METABOLIC PANEL 2021-06-10 10:20:00 , [facility] PROTHROMBIN TIME WITH INR 2021-06-10 10:20:00 , [facility] PARTIAL THROMBOPLASTIN 2021-06-10 10:20:00 , [facility] TIME (PTT) TYPE AND SCREEN 2021-06-10 10:20:00 Holden Nagel spital [place] ESTIMATED GFR 2021-06-10 10:20:00 Kenyatta Juwancaron Whyte spital POC GLUCOSE 2021-06-10 03:11:00 Holden Nagel spital [place] POC GLUCOSE 2021-06-10 01:30:00 Holden Nagel spital [place] POC GLUCOSE 2021-06-09 22:22:00 Holden Nagel spital [place] POC GLUCOSE 2021-06-09 13:55:00 Jin Nagelash [facility] [place] HEMODIALYSIS 2021-06-09 13:20:01 Delfino Akbar [facility] VANCOMYCIN LEVEL, RANDOM 2021-06-09 11:46:[address] [facility] POC GLUCOSE 2021-06-09 02:06:00 Holden Nagel spital [place] POC GLUCOSE 2021-06-08 22:23:00 Holden Nagel spital [place] POC GLUCOSE 2021-06-08 17:53:00 Holden Nagel spital [place] HC COMPLETE BLD COUNT 2021-06-08 16:06:00 [facility] W/AUTO DIFF POC GLUCOSE 2021-06-08 13:56:00 Holden Nagel spigabe [place] URINE CULTURE 2021-06-08 03:56:00 Holden Nagel spital [place] URINALYSIS SCREEN AND 2021-06-08 03:32:00 [facility] MICROSCOPY, WITH REFLEX TO CULTURE POC GLUCOSE 2021-06-08 01:15:00 Holden Nagel spital [place] POC GLUCOSE 2021-06-07 22:07:00 Holden Nagel spital [place] POC GLUCOSE 2021-06-07 18:01:00 Holden Nagel spital [place] BASIC METABOLIC PANEL 2021-06-07 14:15:00 [facility] ESTIMATED GFR 2021-06-07 14:15:00 Holden Nagel spital [place] POC GLUCOSE 2021-06-07 13:56:00 Holden Nagel spital [place] POC GLUCOSE 2021-06-07 02:54:00 Holden Nagel spital [facility] CT LOWER EXTREMITY W 2021-06-07 01:22:[address] [facility] CONTRAST RIGHT POC GLUCOSE 2021-06-06 23:50:00 Holden Nagel spital [place] POC GLUCOSE 2021-06-06 17:31:00 Holden Nagel spital [place] HEMODIALYSIS 2021-06-06 15:05:52 Delfino Akbar [facility] POC GLUCOSE 2021-06-06 14:03:00 Holden Nagel spital [place] HC COMPLETE BLD COUNT 2021-06-06 10:31:00 [facility] W/AUTO DIFF BASIC METABOLIC PANEL 2021-06-06 10:31:00 [facility] ESTIMATED GFR 2021-06-06 10:31:00 Holden Nagel spital [place] POC GLUCOSE 2021-06-06 10:14:00 Nagel, Holden Whyte spital [place] POC GLUCOSE 2021-06-06 06:26:00 Nagel, Holden Whyte spital [place] POC GLUCOSE 2021-06-06 02:41:00 Robe [facility] spital [place] POC GLUCOSE 2021-06-05 19:51:00 Robe [facility] spital [place] BASIC METABOLIC PANEL 2021-06-05 18:06:00 [facility] HC COMPLETE BLD COUNT 2021-06-05 18:06:00 [facility] W/AUTO DIFF ESTIMATED GFR 2021-06-05 18:06:00 Holden Nagel spital [place] POC GLUCOSE 2021-06-05 17:48:00 Holden Nagel spital [place] ANAEROBIC CULTURE 2021-06-05 17:10:00 [facility] ANAEROBIC CULTURE 2021-06-05 16:59:00 [facility] FUNGUS CULTURE 2021-06-05 16:59:00 Juwan You spital AEROBIC CULTURE 2021-06-05 16:59:00 Kenyatta Juwancaron HolmanLatter-Day Ho spital [employer] CULTURE 2021-06-05 16:59:00 Juwan You spital FUNGUS SMEAR 2021-06-05 16:59:00 Kenyatta Juwancaron HolmanLatter-Day Ho spital [employer] STAIN 2021-06-05 16:59:00 Juwan You spital [place] AN ELECTIVE 2021-06-05 16:52:08 Chandler Silverman [facility] SUPRAGLOTTIC AIRWAY TISSUE CULTURE 2021-06-05 16:50:00 Juwan Youtal GRAM STAIN 2021-06-05 16:50:00 Juwan You spital DEBRIDEMENT, LOWER 2021-06-05 16:16:00 Juwan You [facility] EXTREMITY POC GLUCOSE 2021-06-05 13:32:00 Holden Nagel spital [place] TROPONIN T 2021-06-05 10:58:00 [facility] ospital ABO AND RH CONFIRMATION BY 2021-06-05 10:54:00 [facility] PR[facility] Vipin BASIC METABOLIC PANEL 2021-06-05 10:53:00 [facility] HC COMPLETE BLD COUNT 2021-06-05 10:53:00 [facility] W/AUTO DIFF ESTIMATED GFR 2021-06-05 10:53:00 [facility] PROTHROMBIN TIME WITH INR 2021-06-05 10:52:00 [facility] PARTIAL THROMBOPLASTIN 2021-06-05 10:52:00 [facility] TIME (PTT) HCG QUALITATIVE, SERUM 2021-06-05 10:52:00 Myron Fernandes [facility] SCREEN POC GLUCOSE 2021-06-05 09:40:00 Rachel Brasher spital [place]ip[place] BLOOD CULTURE, AEROBIC & 2021-06-05 08:27:00 Rachel Brasher [facility] ANAEROBIC Vipin POC GLUCOSE 2021-06-05 07:42:00 Rachel Brasher Ho spital [place] POC GLUCOSE 2021-06-05 06:57:00 Rachel Brasher Ho spital [place] POC GLUCOSE 2021-06-05 06:10:00 Holden Nagel spital [place] BLOOD CULTURE, AEROBIC & 2021-06-05 04:31:00 Rachel Brasher [facility] ANAEROBIC Vipin POC GLUCOSE 2021-06-05 04:04:00 Rachel Brasher Ho spital [place] POC GLUCOSE 2021-06-05 03:51:00 Rachel Brasher Ho spital [place] TYPE AND SCREEN 2021-06-05 03:40:00 Rachel Brasher Ho spital Viipn POC GLUCOSE 2021-06-05 03:05:00 Rachel Brasher Ho spital [place] POC GLUCOSE 2021-06-05 02:23:00 Rachel Brahser spital [place] COVID-19 QUALITATIVE 2021-06-05 02:08:00 [facility] RT-PCR HC COMPLETE BLD COUNT 2021-06-05 01:24:00 [facility] W/AUTO DIFF PROTHROMBIN TIME WITH INR 2021-06-05 01:24:00 [facility] PARTIAL THROMBOPLASTIN 2021-06-05 01:24:00 [facility] TIME (PTT) COMPREHENSIVE METABOLIC 2021-06-05 01:24:00 [facility] PANEL CREATINE KINASE, TOTAL 2021-06-05 01:24:00 [facility] (CPK) B NATRIURETIC PEPTIDE 2021-06-05 01:24:00 [facility] TROPONIN T 2021-06-05 01:24:00 [facility] ESTIMATED GFR 2021-06-05 01:24:00 [facility] ECG ED PRELIMINARY 2021-06-05 00:31:28 [facility] INTERPRETATION ECG 12-LEAD 2021-06-05 00:19:17 Rachel Brasher spital [place]ip[place] POC GLUCOSE 2021-05-25 18:04:00 Awe [facility] POC GLUCOSE 2021-05-25 14:00:00 Awe, [facility] CBC HEMOGRAM 2021-05-25 10:12:00 Awe, [facility] BASIC METABOLIC PANEL 2021-05-25 10:12:00 Awe, [facility] ESTIMATED GFR 2021-05-25 10:12:00 Awe, [facility] POC GLUCOSE 2021-05-25 02:49:00 Awe, [facility] POC GLUCOSE 2021-05-24 23:33:00 Awe, [facility] POC GLUCOSE 2021-05-24 17:56:00 Awe, [facility] POC GLUCOSE 2021-05-24 13:59:00 Awe, [facility] CBC HEMOGRAM 2021-05-24 10:12:00 Awe, [facility] BASIC METABOLIC PANEL 2021-05-24 10:12:00 Awe, [facility] ESTIMATED GFR 2021-05-24 10:12:00 Awe, [facility] POC GLUCOSE 2021-05-24 09:59:00 Awe, [facility] POC GLUCOSE 2021-05-24 02:26:00 Awe, [facility] POC GLUCOSE 2021-05-24 00:03:00 Awe, [facility] TRANSFUSE RED BLOOD CELLS 2021-05-23 22:30:00 [facility] RED BLOOD CELLS 2021-05-23 21:30:00 [facility] POC GLUCOSE 2021-05-23 19:03:00 Awe, [facility] TYPE AND SCREEN 2021-05-23 14:38:00 [facility] HC COMPLETE BLD COUNT 2021-05-23 14:38:00 Char Viramontes [facility] W/AUTO DIFF PREPARE RBC 2021-05-23 14:38:00 [facility] PLATELET PHERESIS 2021-05-23 14:38:00 Char Viramontes [facility] POC GLUCOSE 2021-05-23 14:35:00 Awe, [facility] HEMODIALYSIS 2021-05-23 13:42:30 [facility] CBC HEMOGRAM 2021-05-23 12:31:00 [facility]OLIC PANEL 2021-05-23 12:31:00 Awe, [facility] ESTIMATED GFR 2021-05-23 12:31:00 Awe, [facility] POC GLUCOSE 2021-05-23 11:22:00 Awe, [facility] POC GLUCOSE 2021-05-23 03:30:00 Awe, [facility] POC GLUCOSE 2021-05-22 23:20:00 Awe, [facility] POC GLUCOSE 2021-05-22 17:20:00 Awe, [facility] POC GLUCOSE 2021-05-22 13:27:00 [facility], [facility] [facility] BASIC METABOLIC PANEL 2021-05-22 12:31:00 Nikki Haynes [facility] Rahel MAGNESIUM LEVEL 2021-05-22 12:31:00 Nikki Haynes ospital Rahel CBC HEMOGRAM 2021-05-22 12:31:00 Nikki Haynes osgio Rahel ESTIMATED GFR 2021-05-22 12:31:[facility] POC GLUCOSE 2021-05-22 10:54:00 Awe, [facility] POC GLUCOSE 2021-05-22 07:28:00 Awe, [facility] POC GLUCOSE 2021-05-22 01:11:00 Awe, [facility] HEPATITIS B SURFACE 2021-05-21 21:08:00 [facility] ANTIBODY HEMODIALYSIS 2021-05-21 20:57:40 Delfino Akbar [facility] POC GLUCOSE 2021-05-21 17:57:00 [facility] 2021-05-21 13:55:00 Awe [facility] POC GLUCOSE 2021-05-21 10:41:00 Kye Barber spital COVID-19 ANTI-SPIKE IGG 2021-05-21 07:43:00 Ishan [facility] ANTIBODY TITER Esa BASIC METABOLIC PANEL 2021-05-21 07:43:00 [facility] Rahel MAGNESIUM LEVEL 2021-05-21 07:43:00 [place] [facility] ospital Rahel CBC HEMOGRAM 2021-05-21 07:43:00 Haynes [facility] ospital Rahel COVID-19 SEROLOGY PATIENT 2021-05-21 07:43:00 Ishan [facility] SURVEILLANCE Esa ESTIMATED GFR 2021-05-21 07:43:00 Andre Sofia marilyn [place] LACTIC ACID LEVEL 2021-05-21 07:43:00 Leodan Stevenson [facility] POC GLUCOSE 2021-05-21 06:35:00 Kye Barber [facility] HC COMPLETE BLD COUNT 2021-05-21 02:49:00 [facility] W/AUTO DIFF BASIC METABOLIC PANEL 2021-05-21 02:49:00 [facility] LACTIC ACID LEVEL 2021-05-21 02:49:00 [facility] OSMOLALITY, SERUM 2021-05-21 02:49:00 [facility] BETA HYDROXYBUTYRATE 2021-05-21 02:49:00 [facility] PROCALCITONIN 2021-05-21 02:49:00 [facility] ESTIMATED GFR 2021-05-21 02:49:00 [facility] 2021-05-21 02:34:00 Kye Barber Ho spital HC COMPLETE BLD COUNT 2021-05-21 00:28:00 [facility] W/AUTO DIFF POC GLUCOSE 2021-05-20 23:57:00 Kye Barber Ho spital BASIC METABOLIC PANEL 2021-05-20 23:20:00 Andre Sofia [facility] [place] LACTIC ACID LEVEL 2021-05-20 23:20:00 [facility] [place] ESTIMATED GFR 2021-05-20 23:20:00 Andre [...] RED BLOOD CELLS 2021-05-20 17:21:00 Andre Sofia [facility] [place] TRANSFUSE PLATELET 2021-05-20 15:52:00 [facility] PHERESIS BASIC METABOLIC PANEL 2021-05-20 15:25:00 Andre Sofia [facility] [place] ESTIMATED GFR 2021-05-20 15:25:00 Andre Sofia spital [place] POC GLUCOSE 2021-05-20 14:48:00 Kye Barber spital HEMODIALYSIS 2021-05-20 11:31:20 [facility] POC GLUCOSE 2021-05-20 10:44:00 Kye Barber Ho spital HEPATITIS B SURFACE 2021-05-20 08:49:00 [facility] ANTIGEN HEPATITIS B SURFACE AB, 2021-05-20 08:49:00 [facility] QUANTITATIVE HC COMPLETE BLD COUNT 2021-05-20 08:25:00 [facility] W/AUTO DIFF BASIC METABOLIC PANEL 2021-05-20 08:25:00 [facility] MAGNESIUM LEVEL 2021-05-20 08:25:00 [facility] ospital PHOSPHORUS LEVEL 2021-05-20 08:25:00 [facility] PROTHROMBIN TIME WITH INR 2021-05-20 08:25:00 [facility] ESTIMATED GFR 2021-05-20 08:25:00 Juwan You spital HEMOGLOBIN A1C 2021-05-20 08:25:00 Nikki Haynes ospital Rahel POC GLUCOSE 2021-05-20 06:34:00 Kye Barber spital ARTERIAL BLOOD GAS 2021-05-20 04:36:00 Graham [facility] ECG 12-LEAD 2021-05-20 03:42:[address] [facility] spital PROTHROMBIN TIME WITH INR 2021-05-20 02:54:00 [facility] HC COMPLETE BLD COUNT 2021-05-20 02:54:00 Graham [facility] W/AUTO DIFF BASIC METABOLIC PANEL 2021-05-20 02:54:00 Graham [facility] LACTIC ACID LEVEL 2021-05-20 02:54:00 Graham [facility] VENOUS BLOOD GAS 2021-05-20 02:54:00 [facility] ESTIMATED GFR 2021-05-20 02:54:[address] [facility] spital POC GLUCOSE 2021-05-20 02:54:00 Kye Barber spital XR CHEST 1 VW PORTABLE 2021-05-20 02:51:13 Leodan Stevenson [facility] [place] < 1 HOUR 2021-05-20 01:30:15 Juwan You spital TRANSFUSE RED BLOOD CELLS 2021-05-20 00:59:00 Juwan You [facility] [place] AN ELECTIVE 2021-05-20 00:53:01 Sukhjinder Medina spital SUPRAGLOTTIC AIRWAY [place] INCISION AND DRAINAGE, 2021-05-20 00:45:00 Kenyatta [facility] HEMATOMA HC COMPLETE BLD COUNT 2021-05-19 22:13:00 [facility] W/AUTO DIFF BASIC METABOLIC PANEL 2021-05-19 22:13:00 [facility] PROTHROMBIN TIME WITH INR 2021-05-19 22:13:00 [facility] PARTIAL THROMBOPLASTIN 2021-05-19 22:13:00 [facility] TIME (PTT) MAGNESIUM LEVEL 2021-05-19 22:13:00 [facility] ospital ESTIMATED GFR 2021-05-19 22:13:00 Juwan You spital POC GLUCOSE 2021-05-19 22:00:00 Errol Luther [facility] SURGICAL PATHOLOGY REQUEST 2021-05-19 21:47:00 Errol Luther [facility] POC GLUCOSE 2021-05-19 21:17:00 Juwan You spital ACTIVATED CLOTTING TIME 2021-05-19 19:12:00 Kye Barber [facility] [place] AN ELECTIVE 2021-05-19 18:11:04 Sukhjinder Medina spital SUPRAGLOTTIC AIRWAY [place] LOWER EXTREMITY 2021-05-19 17:59:00 Juwan You spital ANGIOGRAM,POSSIBLE ANGIOPLASTY,POSSIBLE STENT XR CHEST 1 VW PORTABLE 2021-05-19 15:47:37 Kenyatta [facility] ESTIMATED GFR 2021-05-19 14:34:00 Juwan You spital POC PANEL 2021-05-19 14:34:00 Juwan You spital TYPE AND SCREEN 2021-05-19 14:05:00 Isabell Dickerson marilyn Romero PREPARE RBC 2021-05-19 14:05:00 [facility] ospital PREPARE FRESH FROZEN 2021-05-19 14:05:00 [facility] PLASMA PREPARE PLATELET PHERESIS 2021-05-19 14:05:00 [facility] BASIC METABOLIC PANEL 2021-05-19 14:00:00 [facility] Larry Romero PROTHROMBIN TIME WITH INR 2021-05-19 14:00:00 Jayla [facility] Larry Romero HC COMPLETE BLD COUNT 2021-05-19 14:00:00 [facility] Larry Romero ABO AND RH CONFIRMATION BY 2021-05-19 14:00:00 Kenyatta [facility] PROTOCOL ESTIMATED GFR 2021-05-19 14:00:00 Isabell Dickerson marilyn Romero COVID-19 QUALITATIVE 2021-05-19 12:40:00 [facility] MEDICAL RELEASE/CLEARANCE 2021-05-13 06:01:00 Doctor Unassigned, [facility] FORMS [facility] US DUPLEX ARTERIAL LOWER 2021-05-12 15:21:31 Juwan You [facility] EXTREMITY BILATERAL Emergency department visit 2013-04-15 05:00:00 Deepali Banuelos for the evaluation and management of [...] procedure) Therapeutic, prophylactic, 2013-04-15 05:00:00 [facility] Dele[facility] or diagnostic injection (specify substance or drug); each additional sequential intravenous push of a new substance/drug (List separately in addition to code for primary procedure) Therapeutic, prophylactic, 2013-04-15 05:00:00 [facility] Vin or diagnostic injection (specify substance or drug); intravenous push, single or initial substance/drug Eye procedure [facility] Colonoscopy [facility] EGD [facility] (esophagogastroduodenoscop y) gastric outlet [facility] 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 Plan of Care Planned Activity Planned Date Details Comments Source Future Scheduled 2022-02-27 HEPATITIS B VACCINES [facility] Test 05:24:42 (1 of 3 - 3-dose series) [code = HEPATITIS B VACCINES (1 of 3 - 3-dose series)] Future Scheduled 2022-02-27 COVID-19 VACCINE (#1) [facility] Test 05:24:42 [code = COVID-19 VACCINE (#1)] Future Scheduled 2022-02-27 Pneumococcal Vaccine: [facility] Test 05:24:42 Pediatrics (0 to 5 Years) and At-Risk Patients (6 to 64 Years) (1 - PCV) [code = Pneumococcal Vaccine: Pediatrics (0 to 5 Years) and At-Risk Patients (6 to 64 Years) (1 - PCV)] Future Scheduled 2022-02-27 Hepatitis C screening [facility] Test 05:24:42 (procedure) [code = 049545129] Future Scheduled 2022-02-27 Screening for [facility] Test 05:24:42 malignant neoplasm of cervix (procedure) [code = 243385964] Future Scheduled 2022-02-27 INFLUENZA VACCINE Method [facility] Test 05:24:42 [code = INFLUENZA VACCINE] Future Scheduled 2022-02-27 HEPATITIS B VACCINES [facility] Test 05:24:42 (1 of 3 - 3-dose series) [code = HEPATITIS B VACCINES (1 of 3 - 3-dose series)] Future Scheduled 2022-02-27 COVID-19 VACCINE (#1) [facility] Test 05:24:42 [code = COVID-19 VACCINE (#1)] Future Scheduled 2022-02-27 Pneumococcal Vaccine: [facility] Test 05:24:42 Pediatrics (0 to 5 Years) and At-Risk Patients (6 to 64 Years) (1 - PCV) [code = Pneumococcal Vaccine: Pediatrics (0 to 5 Years) and At-Risk Patients (6 to 64 Years) (1 - PCV)] Future Scheduled 2022-02-27 Hepatitis C screening [facility] Test 05:24:42 (procedure) [code = 565099491] Future Scheduled 2022-02-27 [facility] Test 05:24:42 malignant neoplasm of cervix (procedure) [code = 351282312] Future Scheduled 2022-02-27 [facility]FLUENZA VACCINE [facility] Test 05:24:42 [code = INFLUENZA VACCINE] Future Scheduled 2022-02-27 [facility] 05:24:42 (1 of 3 - 3-dose series) [code = HEPATITIS B VACCINES (1 of 3 - 3-dose series)] Future Scheduled 2022-02-27 COVID-19 VACCINE (#1) [facility] Test 05:24:42 [code = COVID-19 VACCINE (#1)] Future Scheduled 2022-02-27 Pneumococcal Vaccine: [facility] Test 05:24:42 Pediatrics (0 to 5 Years) and At-Risk Patients (6 to 64 Years) (1 - PCV) [code = Pneumococcal Vaccine: Pediatrics (0 to 5 Years) and At-Risk Patients (6 to 64 Years) (1 - PCV)] Future Scheduled 2022-02-27 Hepatitis C screening [facility] Test 05:24:42 (procedure) [code = 753812113] Future Scheduled 2022-02-27 [facility] Test 05:24:42 malignant neoplasm of cervix (procedure) [code = 533236858] Future Scheduled 2022-02-27 INFLUENZA VACCINE [facility] Test 05:24:42 [code = INFLUENZA VACCINE] Future Scheduled 2021-07-22 COVID-19 [facility] ([facility] 13:11:04 [code = COVID-19 VACCINE (1)] Future Scheduled 2021-07-22 Hepatitis C screening [facility] Test 13:11:04 (procedure) [code = 086977216] Future Scheduled 2021-07-22 [facility] Test 13:11:04 malignant neoplasm of cervix (procedure) [code = 915415194] Future Scheduled 2021-07-22 INFLUENZA VACCINE [facility] Test 13:11:04 [code = INFLUENZA VACCINE] Encounters Start End Encounter Admission Attending Care Care Encounter Source Date/Time Date/Time Type Type Clinicians Facility Department ID 2021-12-29 Outpatient [facility] [id number] [place] 11:56:31 [id number] [facility] 2021-12-19 Outpatient [facility] [id number] [place] 14:05:12 [id number] [facility] 2021-12-12 Outpatient [facility] [id number] [place] 12:11:07 [id number] [facility] 2021-12-05 Outpatient [facility] [id number] [place] 20:09:51 [id number] [facility] 2021-10-28 Outpatient [facility] [id number] [place] 17:04:22 [id number] [facility] 2021-07-22 Outpatient nullFlavo [facility] [id number] Memoria 00:10:30 r Medical 05 l [facility] 2021-07-22 Preadmit nullFlavo [id number] Memoria 00:10:30 r [facility] 68 l Delevan 2021-07-22 Outpatient nullFlavo [facility] [id number] Memoria 00:10:30 r Medical 06 l [facility] 2022-01-02 2022-01-02 Outpatient Deshazo_T [facility] [id number] -2021 Devoted 03:37:00 03:37:00 0715 Medica l Group 2021-12-15 2021-12-15 Outpatient [facility] [id number] [place] 08:00:00 08:00:00 [facility] 2021-12-02 2021-12-02 Travel 1.2.840.1 1.2.240.773 [id number] Methodi 00:00:00 00:00:[address] 3.430.2.7 0.2.7.3.698 Ho spita .3.369081 084.8 l .8 2021-12-02 2021-12-02 Travel 1.2.840.1 1.2.531.386 8371 [id number] Methodi 00:00:00 00:00:[address] 3.430.2.7 0.2.7.3.698 Ho spita .3.627219 084.8 l .8 2021-11-13 2021-11-13 Transcribe [place], 1.2.840.1 [id number] Methodi 00:00:00 00:00:00 Orders Jose Miguel G. 42906.1.[address] 3.430.2.7 Hospit a .3.363505 l .8 2021-11-13 2021-11-13 Transcribe [place], 1.2.840.1 [id number] Methodi 00:00:00 00:00:00 Orders Jose Miguel G. 73007.1.[address] 3.430.2.7 Hospit a .3.322634 l .8 2021-11-05 2021-11-05 [facility] [id number] -2021 Devoted 12:00:00 12:00:00 0518 Medica l Group 2021-10-29 2021-10-29 Telephone Rosy, 1.2.840.1 [id number] Methodi 00:00:00 00:00:[address] Mohamed 3.430.2.7 Hospit a .3.105406 l .8 2021-10-29 2021-10-29 Telephone Rosy, 1.2.840.1 [id number] Methodi 00:00:00 00:00:[address] Mohamed 3.430.2.7 Hospit a .3.538350 l .8 2021-08-20 2021-08-20 Outpatient Deshazo_T [facility] [id number] -2021 Devoted 12:30:00 12:30:00 0302 Medica l Group 2021-07-08 2021-07-08 Office Seth, 1.2.840.1 [id number] Methodi 13:00:00 14:25:36 Visit Bessie 98583.1.[address] [place] 3.430.2.7 Hosp jo-ann .3.329255 l .8 2021-07-08 2021-07-08 Office Ann, 1.2.840.1 [id number] Methodi 13:00:00 14:25:36 Visit Bessie 85630.1.[address] [place] 3.430.2.7 Hosp jo-ann .3.060093 l .8 2021-07-08 2021-07-08 Telephone Anthony, 1.2.840.1 [id number] 2099 [id number] Methodi 00:00:00 00:00:[address] 3.430.2.7 Hospit a .3.590593 l .8 2021-07-08 2021-07-08 Travel 1.2.840.1 1.2.426.716 9857 [id number] Methodi 00:00:00 00:00:[address] 3.430.2.7 0.2.7.3.698 Ho spita .3.415907 084.8 l .8 2021-07-08 2021-07-08 Telephone Anthony, 1.2.840.1 [id number] 2099 [id number] Methodi 00:00:00 00:00:[address] 3.430.2.7 Hospit a .3.816034 l .8 2021-07-08 2021-07-08 Travel 1.2.840.1 1.2.008.890 7808 [id number] Methodi 00:00:00 00:00:[address] 3.430.2.7 0.2.7.3.698 Ho spita .3.847594 084.8 l .8 2021-07-03 2021-07-03 CAV Melany 2.16.840. 2.16.840.1. CLAC [id number] Devoted 19:00:00 20:00:00 Guillaume 1.218920. 397931.4.6. [address] [place] [address].6.70174 [id number] 2021-07-03 2021-07-03 Telephone Seth, 1.2.840.1 [id number] [id number] Methodi 00:00:00 00:00:[address] [place] 3.430.2.7 Hosp jo-ann .3.347235 l .8 2021-07-03 2021-07-03 Telephone Seth, 1.2.840.1 [id number] 2099 [id number] Methodi 00:00:00 00:00:[address] [place] 3.430.2.7 Hosp jo-ann .3.867313 l .8 2021-06-24 2021-06-24 Outpatient Deshazo_T [facility] [id number] -2021 Devoted 05:31:00 05:31:00 0104 Medica l Group 2021-06-23 2021-06-23 Telephone Anthony, 1.2.840.1 [id number] 2100 [id number] Methodi 00:00:00 00:00:[address] 3.430.2.7 Hospit a .3.474482 l .8 2021-06-23 2021-06-23 Telephone Anthony, 1.2.840.1 [id number] 2099 [id number] Methodi 00:00:00 00:00:[address] 3.430.2.7 Hospit a .3.327824 l .8 2021-06-04 2021-06-18 [facility] Sivan Doshi. 1.2.840.1 [id number] Methodi 18:20:00 18:13:00 Rachel Sky 62069.1.[address] [facility] 3.430.2.7 Hospita Shanda Shahid .3.312497 l Aurelio Schumacher .8 2021-06-04 2021-06-18 Hospital Sivan Stewart 1.2.840.1 [id number] Methodi 18:20:00 18:13:00 Encounter Rachel Brasher 16217.1.[address] [facility] [place] [facility]ra 3.430.2.7 Hospita Shanda Shahid Kalen .3.304481 l Aurelio Schumacher .8 2021-06-16 2021-06-16 Anesthesia Yousif, 1.2.840.1 [id number] Methodi 23:59:59 23:59:59 Event Alesia Coelho 70579.1.[address] 3.430.2.7 Hospit a .3.623071 l .8 2021-06-16 2021-06-16 Surgery Diaz, 1.2.840.1 [id number] Methodi 13:30:00 17:45:[address] [facility] 3.430.2.7 Hosp jo-ann .3.094563 l .8 2021-06-16 2021-06-16 Surgery Diaz, 1.2.840.1 [id number] Methodi 13:30:00 17:45:00 Mando 68604.1.1 582 [facility] 3.430.2.7 Hosp jo-ann .3.460632 l .8 2021-06-16 2021-06-16 Anesthesia Jose Carlos, 1.2.840.1 [id number] 091 [id number] Methodi 15:19:00 17:19:00 Event Veto 03440.1.1 309 s t V. 3.430.2.7 Hospit a .3.941565 l .8 2021-06-16 2021-06-16 Anesthesia Jose Carlos, 1.2.840.1 [id number] Methodi 15:19:00 17:19:00 Event Sarlachellewathi 81018.1.1 309 s t V. 3.430.2.7 Hospit a .3.182694 l .8 2021-06-10 2021-06-10 Surgery Kenyatta, Juwan 1.2.840.1 [id number] Methodi 08:00:00 10:30:[address] 3.430.2.7 Hospit a .3.355213 l .8 2021-06-10 2021-06-10 Surgery Juwan You 1.2.840.1 [id number] Methodi 08:00:00 10:30:[address] 3.430.2.7 Hospit a .3.720616 l .8 2021-06-10 2021-06-10 Anesthesia Doc, 1.2.840.1 [id number] 093 [id number] Methodi 08:26:00 09:40:00 Event Sofi 60338.1.[address] Marquita 3.430.2.7 Hosp jo-ann .3.696084 l .8 2021-06-10 2021-06-10 Anesthesia Doc, 1.2.840.1 [id number] Methodi 08:26:00 09:40:00 Event Sofi 12682.1.[address] Marquita 3.430.2.7 Hosp jo-ann .3.794024 l .8 2021-06-09 2021-06-09 Prep for Jones, 1.2.840.1 [id number] [id number] Methodi 00:00:00 00:00:00 Surgery Gayle 51665.1.[address] 3.430.2.7 Hospit a .3.173210 l .8 2021-06-09 2021-06-09 Prep for Jones, 1.2.840.1 [id number] Methodi 00:00:00 00:00:00 Surgery Gayle 58705.1.[address] 3.430.2.7 Hospit a .3.823350 l .8 2021-06-09 2021-06-09 Prep for Jones, 1.2.840.1 [id number] Methodi 00:00:00 00:00:00 Surgery Gayle 65966.1.[address] 3.430.2.7 Hospit a .3.253706 l .8 2021-06-09 2021-06-09 Prep for Jones, 1.2.840.1 [id number] Methodi 00:00:00 00:00:00 Surgery Gayle 76476.1.[address] 3.430.2.7 Hospit a .3.569531 l .8 2021-06-05 2021-06-05 Anesthesia Frankie Chowdhury 1.2.840.1 [id number] Methodi 10:16:00 11:41:00 Event Chandler Silverman 25492.1.[address] 3.430.2.7 Hospit a .3.270081 l .8 2021-06-05 2021-06-05 Anesthesia Frankie Chowdhury 1.2.840.1 [id number] Methodi 10:16:00 11:41:00 Event Chandler Silverman 31023.1.[address] 3.430.2.7 Hospit a .3.110293 l .8 2021-06-05 2021-06-05 Surgery Juwan You 1.2.840.1 [id number] Methodi 09:30:00 11:05:[address] 3.430.2.7 Hospit a .3.666910 l .8 2021-06-05 2021-06-05 Surgery Juwan You 1.2.840.1 [id number] [id number] Methodi 09:30:00 11:05:[address] 3.430.2.7 Hospit a .3.533480 l .8 2021-06-03 2021-06-03 Prep for Anthony, 1.2.840.1 [id number] Methodi 00:00:00 00:00:00 Surgery Forrest 92027.1.[address] 3.430.2.7 Hospit a .3.089250 l .8 2021-06-03 2021-06-03 Telephone Adelita 1.2.840.1 [id number] Methodi 00:00:00 00:00:00 Crysandria 22077.1.1 218 s t 3.430.2.7 Hospit a .3.568677 l .8 2021-06-03 2021-06-03 Prep for Anthony, 1.2.840.1 [id number] Methodi 00:00:00 00:00:00 Surgery Forrest 11642.1.[address] 3.430.2.7 Hospit a .3.990411 l .8 2021-06-03 2021-06-03 Telephone Adelita, 1.2.840.1 [id number] [id number] Methodi 00:00:00 00:00:00 Crysandria 37975.1.1 218 s t 3.430.2.7 Hospit a .3.244079 l .8 2021-05-28 2021-05-28 Outpatient Adams_R [facility] [id number] 021 Devoted 05:00:00 05:00:00 1208 Medica l Group 2021-05-27 2021-05-27 Patient Tam, 1.2.840.1 [id number] Methodi 00:00:00 00:00:00 Outreach Maria M 18292.1.[address] 3.430.2.7 Hospit a .3.641463 l .8 2021-05-27 2021-05-27 Travel 1.2.840.1 1.2.869.230 3626 [id number] Methodi 00:00:00 00:00:[address] 3.430.2.7 0.2.7.3.698 Ho spita .3.000929 084.8 l .8 2021-05-27 2021-05-27 Orders Boles, 1.2.840.1 [id number] 2099 [id number] Methodi 00:00:00 00:00:00 Only Anila 44885.1.[address] 3.430.2.7 Hospit a .3.451687 l .8 2021-05-27 2021-05-27 Patient Tam, 1.2.840.1 [id number] [id number] Methodi 00:00:00 00:00:00 Outreach Maria M 10777.1.[address] 3.430.2.7 Hospit a .3.971847 l .8 2021-05-27 2021-05-27 Travel 1.2.840.1 1.2.115.251 5774 [id number] Methodi 00:00:00 00:00:[address] 3.430.2.7 0.2.7.3.698 Ho spita .3.242491 084.8 l .8 2021-05-27 2021-05-27 Orders Boles, 1.2.840.1 [id number] 2099 [id number] Methodi 00:00:00 00:00:00 Only Anila 87624.1.[address] 3.430.2.7 Hospit a .3.436902 l .8 2021-05-26 2021-05-26 Outpatient Adams_R [facility]G [id number] 021 [facility] 03:30:00 03:30:00 1206 Medica l Group 2021-05-26 2021-05-26 Telephone Anthony, 1.2.840.1 [id number] 2099 [id number] Methodi 00:00:00 00:00:[address] 3.430.2.7 Hospit a .3.250247 l .8 2021-05-26 2021-05-26 Telephone Anthony, 1.2.840.1 [id number] 2099 [id number] Methodi 00:00:00 00:00:[address] 3.430.2.7 Hospit a .3.065339 l .8 2021-05-19 2021-05-25 [facility] Juwan You 1.2.840.1 [id number] 2099 [id number] Methodi 06:00:00 15:59:00 Encounter Kye Barber 99270.1.[address] Marilu Koch 3.430.2.7 Hospita .3.515129 l .8 2021-05-19 2021-05-25 [facility] Juwan You 1.2.840.1 [id number] 2100 [id number] Methodi 06:00:00 15:59:00 Encounter Kye Barber 83674.1.[address] Marilu Koch 3.430.2.7 Hospita .3.278059 l .8 2021-05-21 2021-05-21 [id number] 03:30:00 03:30:00 1201 Medica l Group 2021-05-19 2021-05-19 Anesthesia Adam, 1.2.840.1 [id number] Methodi 18:45:00 20:31:00 Event Sukhjinder 69970.1.[address] [place] 3.430.2.7 Hospit a .3.630045 l .8 2021-05-19 2021-05-19 Anesthesia Adam, 1.2.840.1 [id number] Methodi 18:45:00 20:31:00 Event Sukhjinder 00223.1.[address] [place] 3.430.2.7 Hospit a .3.243317 l .8 2021-05-19 2021-05-19 Surgery Juwan You 1.2.840.1 [id number] Methodi 18:50:00 19:55:[address] 3.430.2.7 Hospit a .3.659402 l .8 2021-05-19 2021-05-19 Surgery Juwan You 1.2.840.1 [id number] Methodi 18:50:00 19:55:[address] 3.430.2.7 Hospit a .3.279209 l .8 2021-05-19 2021-05-19 Anesthesia Adam, Sukhjinder Argueta 1.2.840.1 [id number] Methodi 12:00:00 15:14:00 Event Hanane Ledezma 11874.1.[address] 3.430.2.7 Hospit a .3.939052 l .8 2021-05-19 2021-05-19 Anesthesia Sukhjinder Medina 1.2.840.1 [id number] Methodi 12:00:00 15:14:00 Event Hanane Ledezma 81858.1.[address] 3.430.2.7 Hospit a .3.459211 l .8 2021-05-19 2021-05-19 Surgery Juwan You 1.2.840.1 [id number] 95616 Methodi 12:05:00 14:45:[address] 3.430.2.7 Hospit a .3.480501 l .8 2021-05-19 2021-05-19 Surgery Juwan You 1.2.840.1 [id number] 89209 Methodi 12:05:00 14:45:[address] 3.430.2.7 Hospit a .3.760009 l .8 2021-05-19 2021-05-19 Travel 1.2.840.1 1.2.245.018 8147 197045 Methodi 00:00:00 00:00:[address] 3.430.2.7 0.2.7.3.698 Ho spita .3.173299 084.8 l .8 2021-05-19 2021-05-19 Travel 1.2.840.1 1.2.239.749 3393 858112 Methodi 00:00:00 00:00:00 38846.1.1 350.1.13.43 022 st 3.430.2.7 0.2.7.3.698 Ho spita .3.256295 084.8 l .8 2021-05-14 2021-05-14 Telephone Corin, 1.2.840.1 [id number] Methodi 00:00:00 00:00:[address] 3.430.2.7 Hospit a .3.187614 l .8 2021-05-14 2021-05-14 Prep for Anthony, 1.2.840.1 [id number] Methodi 00:00:00 00:00:00 Surgery Forrest [address]29.1.[address] 3.430.2.7 Hospit a .3.111681 l .8 2021-05-14 2021-05-14 Telephone Romeljosé luissantosha, 1.2.840.1 [id number] Methodi 00:00:00 00:00:[address] 3.430.2.7 Hospit a .3.747082 l .8 2021-05-14 2021-05-14 Prep for Anthony, 1.2.840.1 [id number] Methodi 00:00:00 00:00:00 Surgery Forrest 91382.1.[address] 3.430.2.7 Hospit a .3.273196 l .8 2021-05-13 2021-05-13 Orders Doctor JOANNA 1.2.840.114 [id number] Univers 00:00:00 00:00:00 Only Unassigned, MAGDALENO 350.1.13.10 ity of [place] [facility] 4.2.7.2.686 Baljinder as [phone] [address] 2021-05-12 2021-05-12 Office Juwan You 1.2.840.1 [id number] Methodi 09:00:00 09:32:[address] 3.430.2.7 Hospit a .3.265820 l .8 2021-05-12 2021-05-12 Office Juwan You 1.2.840.1 Methodi 09:00:00 09:32:[address] 3.430.2.7 Hospit a .3.875208 l .8 2021-05-12 2021-05-12 Telephone Anthony, 1.2.840.1 [id number] Methodi 00:00:00 00:00:[address] 3.430.2.7 Hospit a .3.302068 l .8 2021-05-12 2021-05-12 Travel 1.2.840.1 1.2.230.407 3669 035315 Methodi 00:00:00 00:00:[address] 3.430.2.7 0.2.7.3.698 Ho spita .3.286448 084.8 l .8 2021-05-12 2021-05-12 Outpatient KENYATTA JUWAN [facility] [id number] [place] 00:00:00 00:00:[address] 2021-05-12 2021-05-12 Telephone Anthony, 1.2.840.1 [id number] Methodi 00:00:00 00:00:[address] 3.430.2.7 Hospit a .3.708598 l .8 2021-05-12 2021-05-12 Travel 1.2.840.1 1.2.479.851 5946 366409 Methodi 00:00:00 00:00:[address] 3.430.2.7 0.2.7.3.698 Ho spita .3.687604 084.8 l .8 2021-05-08 2021-05-08 Orders Anthony, 1.2.840.1 [id number] 6568 Methodi 00:00:00 00:00:00 Only Forrest [address]7558.1.[address] 3.430.2.7 Hospit a .3.716347 l .8 2021-05-08 2021-05-08 Telephone Boles, 1.2.840.1 [id number] Methodi 00:00:00 00:00:[address] 3.430.2.7 Hospit a .3.075100 l .8 2021-05-08 2021-05-08 Orders Anthony, 1.2.840.1 [id number] 1466 Methodi 00:00:00 00:00:00 Only Forrest 66130.1.[address] 3.430.2.7 Hospit a .3.038009 l .8 2021-05-08 2021-05-08 Telephone Ramana, 1.2.840.1 [id number] Methodi 00:00:00 00:00:[address] 3.430.2.7 Hospit a .3.791089 l .8 2021-05-05 2021-05-05 Office Kenyatta Juwan 1.2.840.1 [id number] 60 Methodi 14:00:00 15:41:[address] 3.430.2.7 Hospit a .3.402333 l .8 2021-05-05 2021-05-05 Office Kenyatta Juwan 1.2.840.1 60 Methodi 14:00:00 15:41:[address] 3.430.2.7 Hospit a .3.642830 l .8 2021-05-05 2021-05-05 Travel 1.2.840.1 1.2.121.259 3016 [id number] Methodi 00:00:00 00:00:[address] 3.430.2.7 0.2.7.3.698 Ho spita .3.493496 084.8 l .8 2021-05-05 2021-05-05 Travel 1.2.840.1 1.2.370.367 0788 [id number] Methodi 00:00:00 00:00:[address] 3.430.2.7 0.2.7.3.698 Ho spita .3.771936 084.8 l .8 2021-05-01 2021-05-01 Telephone Joe, 1.2.840.1 [id number] Methodi 00:00:00 00:00:00 Mando 89935.1.1 602 [facility]-i 3.430.2.7 Hosp jo-ann .3.355353 l .8 2021-05-01 2021-05-01 Peg Diaz, 1.2.840.1 [id number] 2100 625722 Methodi 00:00:00 00:00:00 Mando 35191.1.1 602 [facility]-i 3.430.2.7 Hosp jo-ann .3.183918 l .8 2021-03-21 2021-03-21 Outpatient DMG [facility] 69114-9 021 [facility] 08:01:00 08:01:00 1001 Medica l Group 2021-01-21 2021-01-29 Inpatient [facility] [id number] [facility] 15:50:00 20:14:[address] 2021-01-21 2021-01-29 [facility] 7512 [facility] 10:50:00 15:14:00 MONISHA 2021-01-21 2021-01-29 Outpatient [facility] [id number] 10:50:00 15:14:00 Monisha 2021-01-24 2021-01-24 [facility] 59134[facility]9 021 [facility] 08:00:00 08:00:00 0806 Medica l Group 2021-01-21 2021-01-21 Outpatient [facility] [id number] 10:50:00 10:50:00 Monisha 12 2021-01-03 2021-01-03 Office DOMINIQUE Diane 1.2.840.114 [id number] 07:44:43 09:30:54 Visit Alexandr ALTMAN 350.1.13.58 MEDICAL 9.2.7.2.686 [facility] [id number] 1 2021-01-03 2021-01-03 Office DOMINIQUE Diane 1.2.840.114 [id number] [place] 07:44:43 09:30:54 Visit Alexandr ALTMAN 350.1.13.58 H [facility] MEDICAL 9.2.7.2.686 [facility] [id number] 1 2020-12-24 2020-12-25 Outpatient nullFlavo [facility] 210 [id number] Memoria 15:32:00 04:59:00 r Disease 11 l Center Vin 2020-12-24 2020-12-24 Outpatient WRIGHT, [facility] 7511 [facility] 10:32:00 23:59:00 AMES 2020-12-24 2020-12-24 Outpatient Wright, [facility] [id number] 10:32:00 23:59:00 [place] Clark Madden 2020-10-27 2020-10-27 Letter Lamin [facility] 1.2.840.114 [id number] 00:00:00 00:00:00 (Out) Oz Lehman 350.1.13.10 [place] 4.2.7.2.686 Professio [phone] community health [address] [place] [address] 2020-10-24 2020-10-24 Orders Doctor JOANNA 1.2.840.114 [id number] 00:00:00 00:00:00 Only Unassigned, MAGDALENO 350.1.13.10 [place] [facility] 4.2.7.2.686 [id number] 009 2020-09-24 2020-09-24 [facility] 1.2.840.114 [id number] 00:00:00 00:00:00 Jose Luis Lehman 350.1.13.10 [place] 4.2.7.2.686 Professio [phone] community health 220 [facility] 2020-09-09 2020-09-09 [facility] 1.2.840.114 [id number] 00:00:00 00:00:00 Outreach Earl PRIMARY 350.1.13.10 Manuel CARE 4.2.7.2.686 PAVILLION [id number] 2020-07-23 2020-07-23 Office Black [facility] 1.2.353.077 4127 [id number] 13:31:20 14:37:36 Visit Deja PRIMARY 350.1.13.10 A CARE 4.2.7.2.686 PAVILLION [id number] 198 2020-06-27 2020-06-27 [facility] 1.2.840.114 [id number] Univers 10:05:43 11:00:00 Visit Oz LEHMAN 350.1.13.10 itcaron [facility] 4.2.7.2.686 Amisha CANNON [id number] [place] 319099 [facility] 2020-06-27 2020-06-27 [facility] [id number] Univers 09:30:00 11:00:00 SENDIL ity [facility] 2020-01-25 2020-01-31 Inpatient 1 Chivo Rei [facility] GPY [id number] 21:31:00 18:15:00 Rei Waldron [facility] 2018-05-24 2018-05-24 Outpatient SARAHY DORADO, SLE [facility] [id number] [facility] 00:00:00 00:00:00 LY 2016-07-24 2016-07-30 Inpatient [facility] [id number] Mem[facility] 02:04:00 16:20:00 r Vin [address] [place] [address] 2016-07-23 2016-07-30 Outpatient Yaquelin [facility] [id number] 20:04:00 10:20:00 Luna 10 2016-06-10 2016-06-15 [facility] [id number] Memoria 16:02:00 18:23:00 [facility] UCLADelevan [address] [place] [address] 2016-06-10 2016-06-15 Outpatient Franck [facility] [id number] 10:02:00 12:23:00 Joe W 09 2014-06-26 2014-06-26 EC nullFlavo [facility] [id number] Memoria 05:25:00 15:14:00 Emergency r Vin [address] [place] [address] 2014-06-25 2014-06-26 Outpatient Courtney, 2.16.840. 2.16.840. 1. [id number] 23:25:00 09:14:00 Atul 1.059284. 980739.3.61 08 Cem 3.615.0.1 5.0.757 85 2824-10-25 2013-04-15 Emergency nullFlavo [id number] Memoria 21:04:00 01:45:00 r [facility] 07 l Vin 2013-04-14 2013-04-15 Outpatient 2.16.840. 2.16.840.1. 4 [id number] Memoria 21:04:00 01:45:00 1.689887. 078960.3.61 07 l 3.615.0.1 5.0.101 Jake n [facility] 2013-04-14 2013-04-15 Outpatient 2.16.840. 2.16.840.1. 4 [id number] [facility] 21:04:00 01:45:00 1.818011. 803043.3.61 07 l 3.615.0.1 5.0.101 Jake n [facility] 2013-04-14 2013-04-15 Outpatient 2.16.840. 2.16.840.1. 4 [id number] Mem[facility] 21:04:00 01:45:00 1.988527. 983981.3.61 07 l 3.615.0.1 5.0.101 Jake n [facility] 2013-04-14 2013-04-15 Outpatient 2.16.840. 2.16.840.1. 4 [id number] Memoria 21:04:00 01:45:00 1.452916. 352017.3.61 07 l 3.615.0.1 5.0.101 Jake n [facility] 2013-04-14 2013-04-15 Outpatient 2.16.840. 2.16.840.1. 4 [id number] [facility] 21:04:00 01:45:00 1.441492. 467369.3.61 07 l 3.615.0.1 5.0.101 Jake n [facility] 2012-03-14 2012-03-14 Emergency nullFlavo [id number] [facility] 16:32:00 22:39:00 r [facility] 04 l Vin 2011-11-28 2011-11-30 OU nullFlavo [facility] [id number] Memoria 12:16:00 20:40:00 r Medical 03 l [facility] 2011-09-18 2011-09-18 Emergency nullFlavo [facility] [id number] Memoria 08:23:00 13:34:00 r Medical 02 l [facility] 2011-09-01 2011-09-09 Inpatient nullFlavo [facility] 02389 94205 Memoria 01:40:00 15:00:00 r Medical 01 [facility] 2011-08-19 2011-08-23 Inpatient nullFlavo [facility] [id number] Memoria 14:25:00 15:28:00 r Medical 00 [facility] Results Test Description Test Time Test Comments Results Result Comments Source AFB culture 2021-07-22 18:13:19 Test Item Value Reference Range Interpretation Comme nts AFB culture isolate No growth after 6 weeks of Specimen InformationSpecimen (test code = 543-9) incubation. Source: DrainageSpecimen Site: Thigh: infected wound right thigh [facility] [id number] 18:13:19 Test Item Value Reference Range Interpretation Comments AFB culture No growth Specimen isolate (test after 6 weeks InformationSp ecimen code = 543-9) of Source: [place] geSpecimen incubation. Site: Thigh: in fected wound right [facility] [id number] 18:13:19 Test Item Value Reference Range Interpretation Comments AFB culture No growth Specimen isolate (test after 6 weeks InformationSp ecimen code = 543-9) of Source: [place] geSpecimen incubation. Site: Thigh: [facility] [id number] 18:13:19 Test Item Value Reference Range Interpretation Comments AFB culture No growth Specimen isolate (test after 6 weeks InformationSp ecimen code = 543-9) of Source: [place] geSpecimen incubation. Site: Thigh: in fected wound right [facility] [id number] 18:15:13 Test Item Value Reference Range Interpretation Comments Fungus culture No growth Specimen isolate (test after 4 weeks InformationSp ecimen code = 1441) of Source: TissueS pecimen incubation. [facility] [id number] 18:15:13 Test Item Value Reference Range Interpretation Comments Fungus culture No growth Specimen isolate (test after 4 weeks InformationSp ecimen code = 1441) of Source: TissueS pecimen incubation. Site: [facility] [id number] 18:15:13 Test Item Value Reference Range Interpretation Comments Fungus culture No growth Specimen isolate (test after 4 weeks InformationSp ecimen code = 1441) of Source: TissueS pecimen incubation. Site: [facility] offzsgp0905-13-05 18:15:13 Test Item Value Reference Range Interpretation Comments Fungus culture No growth Specimen isolate (test after 4 weeks InformationSp ecimen code = 1441) of Source: TissueS pecimen incubation. Site: [facility] [id number] 14:31:13 Test Item Value Reference Range Interpretation Comments Anaerobic No anaerobic Specimen culture isolate organisms InformationS pecimen (test code = isolated. Source: TissueS pecimen 552) Site: [facility]2022-01-01 14:31:13 Test Item Value Reference Range Interpretation Comments Anaerobic No anaerobic Specimen culture isolate organisms InformationS pecimen (test code = isolated. Source: TissueS pecimen 552) Site: [facility] [id number] 14:31:13 Test Item Value Reference Range Interpretation Comments Anaerobic No anaerobic Specimen culture isolate organisms InformationS pecimen (test code = isolated. Source: TissueS pecimen 552) Site: [facility] [id number] 14:31:13 Test Item Value Reference Range Interpretation Comments Anaerobic No anaerobic Specimen culture isolate organisms InformationS pecimen (test code = isolated. Source: TissueS pecimen 552) [facility] [id number] 16:51:58 Test Item Value Reference Range Interpretation Comments Gram stain No WBC's or Specimen isolate (test organisms seen. Information Specimen code = 1469) Source: TissueS pecimen [facility]: [facility] wvjrjwf5036-12-94 16:51:58 Test Item Value Reference Range Interpretation Comments Aerobic culture No growth Specimen isolate (test after 3 days. InformationSp ecimen code = 498) Source: TissueS pecimen [facility] [id number] 16:51:58 Test Item Value Reference Range Interpretation Comments Fungus smear No fungi Specimen (test code = observed. InformationSpec imen Source: 1443) [facility] [id number] 16:51:58 Test Item Value Reference Range Interpretation Comments Gram stain No WBC's or Specimen isolate (test organisms seen. Information Specimen code = 1469) Source: [facility] Site: [facility] [id number] 16:51:58 Test Item Value Reference Range Interpretation Comments Aerobic culture No growth Specimen isolate (test after 3 days. InformationSp ecimen code = 498) Source: [facility]: [facility] [id number] 16:51:58 Test Item Value Reference Range Interpretation Comments Fungus smear No fungi Specimen (test code = observed. InformationSpec imen Source: 1443) [facility] Site: [facility]2021-12-31 16:51:58 Test Item Value Reference Range Interpretation Comments Gram stain No WBC's or Specimen isolate (test organisms seen. Information Specimen code = 1469) Source: [facility] Site: [facility] [id number] 16:51:58 Test Item Value Reference Range Interpretation Comments Aerobic culture No growth Specimen isolate (test after 3 days. InformationSp ecimen code = 498) Source: [facility] Site: [facility]2021-12-31 16:51:58 Test Item Value Reference Range Interpretation Comments Fungus smear No fungi Specimen (test code = observed. InformationSpec imen Source: 1443) [facility] Site: [facility]2021-12-31 16:51:58 Test Item Value Reference Range Interpretation Comments Gram stain No WBC's or Specimen isolate (test organisms seen. Information Specimen code = 1469) Source: [facility] Site: [facility] [id number] 16:51:58 Test Item Value Reference Range Interpretation Comments Aerobic culture No growth Specimen isolate (test after 3 days. InformationSp ecimen code = 498) Source: [facility] ewgso5733-26-78 16:51:58 Test Item Value Reference Range Interpretation Comments Fungus smear No fungi Specimen (test code = observed. InformationSpec imen Source: 2472) TissueSpecimen Site: Thigh [facility]2021-12-29 17:00:57 Test Item Value Reference Range Interpretation Comments POC glucose (test code 79 mg/dL 65-99 Opera tor Name: Eboni = 62135-2) AmiDevice ID: [id number] [facility] [id number] 17:00:57 Test Item Value Reference Range Interpretation Comments POC glucose (test code 79 mg/dL 65-99 Opera tor Name: Eboni = 33548-2) AmiDevice ID: [id number] [facility]2021-12-29 17:00:57 Test Item Value Reference Range Interpretation Comments POC glucose (test code 79 mg/dL 65-99 Opera tor Name: Eboni = 36337-5) AmiDevice ID: [id number] [facility]2021-12-29 17:00:57 Test Item Value Reference Range Interpretation Comments POC glucose (test code 79 mg/dL 65-99 Opera tor Name: Eboni = 20460-4) AmiDevice ID: [id number] [facility] , [id number] 20:46:00 Test Item Value Reference Range Interpretation Comments test urine, POC (test Negative code = 5554214) Internal QC (test code = 257) QC acceptable [facility] , rsrnu4926-78-16 20:46:00 Test Item Value Reference Range Interpretation Comments test urine, POC (test Negative code = 0257784) Internal QC (test code = 257) QC acceptable [facility] , [id number] 20:46:00 Test Item Value Reference Range Interpretation Comments test urine, POC (test Negative code = 0623442) Internal QC (test code = 257) QC acceptable [facility] , [id number] 20:46:00 Test Item Value Reference Range Interpretation Comments test urine, POC (test Negative code = 8984372) Internal QC (test code = 257) QC acceptable [facility] 12 [id number] 17:27:33 Test Item Value Reference Range Interpretation Comments Ventricular rate (test code = 253) Atrial rate (test code = 255) VT interval (test code = 266) QRSD interval [...] of 04-JUN-2021 18:19,-No significant change was found- [address]2021-12-27 17:27:33 Test Item Value Reference Range Interpretation Comments Ventricular rate (test code = 253) Atrial rate (test code = 255) VT interval (test code = 266) QRSD interval [...] of 04-JUN-2021 18:19,-No significant change was found- [address]2021-12-27 17:27:33 Test Item Value Reference Range Interpretation Comments Ventricular rate (test code = 253) Atrial rate (test code = 255) VT interval (test code = 266) QRSD interval [...] of 04-JUN-2021 18:19,-No significant change was found- [address]2021-12-27 17:27:33 Test Item Value Reference Range Interpretation Comments Ventricular rate (test code = 253) Atrial rate (test code = 255) VT interval (test code = 266) QRSD interval [...] of 04-JUN-2021 18:19,-No significant change was found- [facility] and fkkecz4594-63-46 11:06:00 Test Item Value Reference Range Interpretation Comments ABO grouping (test code = 883-9) B Rh type (test code = 73844-3) POS Antibody screen (gel) (test code = NEG 890-4) [facility] and [id number] 11:06:00 Test Item Value Reference Range Interpretation Comments ABO grouping (test code = 883-9) B Rh type (test code = 63285-6) POS Antibody screen (gel) (test code = NEG 890-4) [facility] [id number] 11:06:00 Test Item Value Reference Range Interpretation Comments ABO grouping (test code = 883-9) B Rh type (test code = 03669-8) POS Antibody screen (gel) (test code = NEG 890-4) [facility] [id number] 11:06:00 Test Item Value Reference Range Interpretation Comments ABO grouping (test code = 883-9) B Rh type (test code = 43782-4) POS Antibody screen (gel) (test code = NEG 890-4) [facility] RNA [Presence] in Respiratory specimen by EMANUEL with probe [id number] 19:37:44 Test Item Value Reference Range Interpretation Comments SARS-CoV-2 (COVID-19) RNA Not detected Not-Detected [Presence] in Respiratory specimen by EMANUEL with probe detection (test code = 00895-0) 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 (test code = 03248-9) Whether the patient has symptoms related to condition of interest (test code = 81329-3) Patient was hospitalized because of this condition (test code = 04156-2) Whether the patient was admitted to intensive care unit (ICU) for condition of interest (test code = 13538-1) Whether patient resides in a congregate care setting (test code = 49082-9) Tissue [id number] 20:18:46 Test Item Value Reference Range Interpretation Comments Tissue culture No growth Specimen isolate (test after 3 days. InformationSp ecimen code = 37086-7) Source: Tiss ueSpecimen Site: Thigh: in fected right thigh wou [facility] [id number] 20:18:46 Test Item Value Reference Range Interpretation Comments Tissue culture No growth Specimen isolate (test after 3 days. InformationSp ecimen code = 81582-7) Source: Tiss ueSpecimen Site: Thigh: in fected right thigh wou [facility] [id number] 20:18:46 Test Item Value Reference Range Interpretation Comments Tissue culture No growth Specimen isolate (test after 3 days. InformationSp ecimen code = 61927-7) Source: Tiss ueSpecimen Site: Thigh: in fected right thigh wou [facility] [id number] 20:18:46 Test Item Value Reference Range Interpretation Comments Tissue culture No growth Specimen isolate (test after 3 days. InformationSp ecimen code = 43401-0) Source: Tiss ueSpecimen Site: Thigh: in fected right thigh wou [facility] [id number] 20:24:42 Test Item Value Reference Range Interpretation Comments AFB stain No acid fast Specimen (test code = bacilli (AFB) [facility]Spe [facility] 6[facility]-7) seen. Source: Drainag eSpecimen Site: Thigh: in fected wound right [facility] [id number] 20:24:42 Test Item Value Reference Range Interpretation Comments AFB stain No acid fast Specimen (test code = bacilli (AFB) InformationSpe [facility] 676-7) seen. Source: Drainag eSpecimen Site: Thigh: in fected wound right [facility] rgluz1646-20-46 20:24:42 Test Item Value Reference Range Interpretation Comments AFB stain No acid fast Specimen (test code = bacilli (AFB) InformationSpe cimen 676-7) seen. Source: Drainag eSpecimen Site: Thigh: in fected wound right [facility] Hospital[facility] [id number] 20:24:42 Test Item Value Reference Range Interpretation Comments AFB stain No acid fast Specimen (test code = bacilli (AFB) InformationSpe cimen 676-7) seen. Source: Drainag eSpecimen Site: Thigh: in fected wound right [facility] [id number] 09:49:57 Test Item Value Reference Range Interpretation Comments Urine culture No growth Specimen isolate (test after 24 InformationSpe cimen code = 90640-3) hours Source: Urin eSpecimen Site: Clean [facility] hfjlfwu1748-81-49 09:49:57 Test Item Value Reference Range Interpretation Comments Urine culture No growth Specimen isolate (test after 24 InformationSpe cimen code = 93951-8) hours Source: Urin eSpecimen Site: Clean cat [facility] folfdpr6711-30-67 09:49:57 Test Item Value Reference Range Interpretation Comments Urine culture No growth Specimen isolate (test after 24 InformationSpe cimen code = 43373-9) hours Source: Urin eSpecimen Site: [facility] [id number] 09:49:57 Test Item Value Reference Range Interpretation Comments Urine culture No growth Specimen isolate (test after 24 InformationSpe cimen code = 62119-8) hours Source: Urin eSpecaffinity health partnersn Site: [facility] ubbfwrmnnedu1529-37-18 12:52:00 Test Item Value Reference Range Interpretation Comments ABO grouping (test code = 883-9) B Rh type (test code = 71689-2) POS [facility] and iowerwurierl1742-11-50 12:52:00 Test Item Value Reference Range Interpretation Comments ABO grouping (test code = 883-9) B Rh type (test code = 04623-6) POS [facility] and Rh yewunepghioe1187-32-65 12:52:00 Test Item Value Reference Range Interpretation Comments ABO grouping (test code = 883-9) B Rh type (test code = 73982-4) [facility] tonsrdrewlon0146-72-48 12:52:00 Test Item Value Reference Range Interpretation Comments ABO grouping (test code = 883-9) B Rh type (test code = 32594-5) [facility] RNA [Presence] in Respiratory specimen by EMANUEL with probe [id number] 03:04:32 Test Item Value Reference Range Interpretation Comments SARS-CoV-2 (COVID-19) RNA Not detected Not-Detected [Presence] in Respiratory specimen by EMANUEL with probe detection (test code = 37883-8) 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 (test code = 42470-6) Whether the patient has symptoms related to condition of interest (test code = 00178-9) Patient was hospitalized because of this condition (test code = 52974-9) Whether the patient was admitted to intensive care unit (ICU) for condition of interest (test code = 00942-4) Whether patient resides in a congregate care setting (test code = 43251-0) Prepare RBC, 1 [id number] 22:22:00 Test Item Value Reference Range Interpretation Comments Product name (test code Red Blood Cells -1, = 25) Leukored Unit number (test code = [id number]) Product code (test code V4080Y66 = 3092) Dispense status (test Transfused code = 24) Blood expiration date (test code = 302) Blood type code (test code = 308) Blood type (test code = B POSITIVE 1314) Compatibility (test code Compatible = 6400) [facility] [id number] 22:22:00 Test Item Value Reference Range Interpretation Comments Product name (test code Red Blood Cells -1, = 25) Leukored Unit number (test code = [id number]) Product code (test code Z3783P84 = 3092) Dispense status (test Transfused code = 24) Blood expiration date (test code = 302) Blood type code (test code = 308) Blood type (test code = B POSITIVE 1314) Compatibility (test code Compatible = 6400) [facility] [id number] 22:22:00 Test Item Value Reference Range Interpretation Comments Product name (test code Red Blood Cells -1, = 25) Leukored Unit number (test code = [id number]) Product code (test code V2292T12 = 3092) Dispense status (test Transfused code = 24) Blood expiration date (test code = 302) Blood type code (test code = 308) Blood type (test code = B POSITIVE 1314) Compatibility (test code Compatible = 6400) [facility] RBC, 1 Alpme5416-26-15 22:22:00 Test Item Value Reference Range Interpretation Comments Product name (test code Red Blood Cells -1, = 25) Leukored Unit number (test code = [id number]) Product code (test code Z1476I32 = 3092) Dispense status (test Transfused code = 24) Blood expiration date (test code = 302) Blood type code (test code = 308) Blood type (test code = B POSITIVE 1314) Compatibility (test code Compatible = 6400) [facility] pathology mglvbaq4322-09-66 20:10:46 Test Item Value Reference Range Interpretation Comments Case number (test code = [id number]) Surgical pathology See link below for report (test code = PDF Lab Report 2255) Result status (test code This is Final Report = [id number]) for [address] pathology [id number] 20:10:46 Test Item Value Reference Range Interpretation Comments Case number (test code = [id number]) Surgical pathology See link below for report (test code = PDF Lab Report 2255) Result status (test code This is Final Report = [id number]) for [id number] [place] [address] pathology ozcjcyh9264-19-99 20:10:46 Test Item Value Reference Range Interpretation Comments Case number (test code = [id number]) Surgical pathology See link below for report (test code = PDF Lab Report 2255) Result status (test code This is Final Report = [id number]) for [id number] [place] [address] pathology [id number] 20:10:46 Test Item Value Reference Range Interpretation Comments Case number (test code = [id number]) Surgical pathology See link below for report (test code = PDF Lab Report 2255) Result status (test code This is Final Report = [id number]) for [id number] [facility], 1 [id number] 15:35:00 Test Item Value Reference Range Interpretation Comments Product name (test code Platerick tAph LR, Path = 25) Red cont3 Unit number (test code = [id number]) Product code (test code O2832K24 = 3092) Dispense status (test Transfused code = 24) Blood expiration date (test code = 302) Blood type code (test code = 308) Blood type (test code = O POSITIVE 1314) Compatibility (test code Not required = 6400) [facility], 1 [id number] 15:35:00 Test Item Value Reference Range Interpretation Comments Product name (test code Platerick tAph LR, Path = 25) Red cont3 Unit number (test code = [id number]) Product code (test code E5943F94 = 3092) Dispense status (test Transfused code = 24) Blood expiration date (test code = 302) Blood type code (test code = 308) Blood type (test code = O POSITIVE 1314) Compatibility (test code Not required = 6400) [facility], 1 [id number] 15:35:00 Test Item Value Reference Range Interpretation Comments Product name (test code Platerick [place] LR, Path = 25) Red cont3 Unit number (test code = [id number] 0857016) Product code (test code H0919T74 = 3092) Dispense status (test Transfused code = 24) Blood expiration date (test code = 302) Blood type code (test code = 308) Blood type (test code = O POSITIVE 1314) Compatibility (test code Not required = 6400) [facility], 1 [id number] 15:35:00 Test Item Value Reference Range Interpretation Comments Product name (test code Platerick tAph LR, Path = 25) Red cont3 Unit number (test code = [id number] 3122530) Product code (test code T4903P32 = 3092) Dispense status (test Transfused code = 24) Blood expiration date (test code = 302) Blood type code (test code = 308) Blood type (test code = O POSITIVE 1314) Compatibility (test code Not required = 6400) [facility] [id number] 12:13:24 Test Item Value Reference Range Interpretation Comments Activated clotting time See_Comment H Oper ator Name: (test code = 5298) Bryn Eduin thorntoneaDevice ID: [id number] [Automated mess age] The system [employer] generated this result transmitted ref erence range: 96 - 152 sec. The reference r leo was not used to interpret this result as normal/abnor mal. Lab Interpretation (test Abnormal code = 07046-8) [facility] tutk8832-09-83 12:13:24 Test Item Value Reference Range Interpretation Comments Activated clotting time See_Comment H Oper ator Name: (test code = 5298) Bryn Eduin eneaDevice ID: [id number] [Automated mess age] The system [employer] generated this result transmitted ref erence range: 96 - 152 sec. The reference r leo was not used to interpret this result as normal/abnor mal. Lab Interpretation (test Abnormal code = 41550-8) [facility] [id number] 12:13:24 Test Item Value Reference Range Interpretation Comments Activated clotting time See_Comment H Oper ator Name: (test code = 5298) Bryn Eduin thorntoneaDevice ID: [id number] [Automated mess age] The system [employer] generated this result transmitted ref erence range: 96 - 152 sec. The reference r leo was not used to interpret this result as normal/abnor mal. Lab Interpretation (test Abnormal code = 59347-0) [facility] [id number] 12:13:24 Test Item Value Reference Range Interpretation Comments Activated clotting time See_Comment H Oper ator Name: (test code = 5298) Bryn Eduin eneaDevice ID: [id number] [Automated mess age] The system [employer] h generated this result transmitted ref erence range: 96 - 152 sec. The reference r leo was not used to interpret this result as normal/abnor mal. Lab Interpretation (test Abnormal code = 82841-8) [facility] [id number] 14:37:48 Test Item Value Reference Range Interpretation Comments POC sodium (test code = 138 mmol/L 760-727 6569-0) POC potassium (test 5.5 mmol/L 3.5-5.0 H code = 6298-4) POC glucose (test code 295 mg/dL 65-99 H = 2339-0) POC creatinine (test 5.3 mg/dl 0.5-0.9 H Operato r Name: Pugne code = 72432-8) AilBharat ID: [id number] POC hemoglobin (test 18.4 g/dL 12.0-16.0 H code = 718-7) POC hematocrit (test 54 % 37-47 H code = 4544-3) Lab Interpretation Abnormal (test code = 82197-6) [facility]2021-11-29 14:37:48 Test Item Value Reference Range Interpretation Comments POC sodium (test code = 138 mmol/L 971-962 7521-0) POC potassium (test 5.5 mmol/L 3.5-5 H code = 6298-4) POC glucose (test code 295 mg/dL 65-99 H = 2339-0) POC creatinine (test 5.3 mg/dl 0.5-0.9 H Operato r Name: Pugne code = 39503-6) AilBharat ID: [id number] POC hemoglobin (test 18.4 g/dL 12-16 H code = 718-7) POC hematocrit (test 54 % 37-47 H code = 4544-3) Lab Interpretation Abnormal (test code = 32495-4) [facility]2021-11-29 14:37:48 Test Item Value Reference Range Interpretation Comments POC sodium (test code = 138 mmol/L 379-845 8592-0) POC potassium (test 5.5 mmol/L 3.5-5 H code = 6298-4) POC glucose (test code 295 mg/dL 65-99 H = 2339-0) POC creatinine (test 5.3 mg/dl 0.5-0.9 H Operato r Name: Pugne code = 06392-8) AiljoshDevice ID: [id number] POC hemoglobin (test 18.4 g/dL 12-16 H code = 718-7) POC hematocrit (test 54 % 37-47 H code = 4544-3) Lab Interpretation Abnormal (test code = 91016-5) [facility] [id number] 14:37:48 Test Item Value Reference Range Interpretation Comments POC sodium (test code = 138 mmol/L 291-499 5000-0) POC potassium (test 5.5 mmol/L 3.5-5 H code = 6298-4) POC glucose (test code 295 mg/dL 65-99 H = 2339-0) POC creatinine (test 5.3 mg/dl 0.5-0.9 H Operato r Name: Pat code = 40101-1) AilWinstone ID: [id number] POC hemoglobin (test 18.4 g/dL 12-16 H code = 718-7) POC hematocrit (test 54 % 37-47 H code = 4544-3) Lab Interpretation Abnormal (test code = 00237-5) [facility] RNA [Presence] in Respiratory specimen by EMANUEL with probe [id number] 07:53:49 Test Item Value Reference Range Interpretation Comments SARS-CoV-2 (COVID-19) RNA Not detected Not-Detected [Presence] in Respiratory specimen by EMANUEL with probe detection (test code = 89162-3) 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 (test code = 79118-7) Whether the patient has symptoms related to condition of interest (test code = 78214-8) Patient was hospitalized because of this condition (test code = 61757-7) Whether the patient was admitted to intensive care unit (ICU) for condition of interest (test code = 58257-8) Whether patient resides in a congregate care setting (test code = 13461-6) CHEM [id number] 08:17:00 Test Item Value Reference Range Interpretation Comments Glucose Lvl (test code = Glucose Lvl) 94 70-99 [facility] RXNOM4545-08-28 08:17:00 Test Item Value Reference Range Interpretation Comments BUN (test code = BUN) 27 7-22 [facility] [id number] 08:17:00 Test Item Value Reference Range Interpretation Comments Creatinine Lvl (test code = Creatinine 4.95 0.50-1.40 Lvl) [place] 320381-08-11 08:17:00 Test Item Value Reference Range Interpretation Comments Sodium Lvl (test code = Sodium Lvl) 136 135-145 [place] 320381-08-11 08:17:00 Test Item Value Reference Range Interpretation Comments Potassium Lvl (test code = Potassium 3.9 3.5-5.1 Lvl) [place] 320381-08-11 08:17:00 Test Item Value Reference Range Interpretation Comments Chloride Lvl (test code = Chloride Lvl) 103 95-109 [place] 320381-08-11 08:17:00 Test Item Value Reference Range Interpretation Comments CO2 (test code = CO2) 30 24-32 [place] 320381-08-11 08:17:00 Test Item Value Reference Range Interpretation Comments AGAP (test code = AGAP) 6.9 10.0-20.0 [place] 320381-08-11 08:17:00 Test Item Value Reference Range Interpretation Comments Calcium Lvl (test code = Calcium Lvl) 8.5 8.5-10.5 [place] 320381-08-11 08:17:00 Test Item Value Reference Range Interpretation Comments eGFR (test code = eGFR) 10 [place] 320381-08-11 08:17:00 Test Item Value Reference Range Interpretation Comments Phosphorus (test code = Phosphorus) 3.0 2.5-4.5 [place] 320381-08-11 08:17:00 Test Item Value Reference Range Interpretation Comments Magnesium Lvl (test code = Magnesium 2.4 1.8-2.4 Lvl) [place] 143201-08-11 08:17:00 Test Item Value Reference Range Interpretation Comments WBC (test code = WBC) 2.3 3.7-10.4 [place] [address]-08-11 08:17:00 Test Item Value Reference Range Interpretation Comments RBC (test code = RBC) 2.65 4.20-5.40 [place] 143201-08-11 08:17:00 Test Item Value Reference Range Interpretation Comments Hgb (test code = Hgb) 7.9 12.0-16.0 [place] [address]-08-11 08:17:00 Test Item Value Reference Range Interpretation Comments Hct (test code = Hct) 24.0 36.0-48.0 [facility]qtsijYXRWJRBBIS0593-23-27 08:17:00 Test Item Value Reference Range Interpretation Comments MCV (test code = MCV) 90.6 80.0-98.0 [facility] HospitalLeaqiqwBNMHSUWIPZ5440-25-26 08:17:00 Test Item Value Reference Range Interpretation Comments MCH (test code = MCH) 29.7 pg 27.0-31.0 [facility] HospitalLloufqoZYSZUZFNDQ4698-58-76 08:17:00 Test Item Value Reference Range Interpretation Comments MCHC (test code = MCHC) 32.7 32.0-36.0 [facility] HospitalEjisthgQJVSNTSOCX3483-89-22 08:17:00 Test Item Value Reference Range Interpretation Comments RDW (test code = RDW) 19.1 11.5-14.5 [facility] HospitalXgxreniJJLGHCPFPL0750-46-24 08:17:00 Test Item Value Reference Range Interpretation Comments Platelet (test code = Platelet) 71 133-450 [facility] HospitalObrovojBSAMIYTGNI4336-98-53 08:17:00 Test Item Value Reference Range Interpretation Comments MPV (test code = MPV) 9.9 7.4-10.4 [facility] HospitalJeiavocXRYQCEFCKY2023-41-96 08:17:00 Test Item Value Reference Range Interpretation Comments Segs (test code = Segs) 56.1 45.0-75.0 [facility] HospitalIxkonomSZKHIIKLCG7584-14-57 08:17:00 Test Item Value Reference Range Interpretation Comments Lymphocytes (test code = Lymphocytes) 28.9 20.0-40.0 [facility] HospitalInrzwosRFZKHBRRSJ1963-79-13 08:17:00 Test Item Value Reference Range Interpretation Comments Monocytes (test code = Monocytes) 8.1 2.0-12.0 [place] 143201-08-11 08:17:00 Test Item Value Reference Range Interpretation Comments Eosinophils (test code = 5.9 See_Comment [A utomated message] The Eosinophils) system which ge nerated this result tra nsmitted reference range : <=4.0. The reference r leo was not used to int erpret this result as normal/abnormal . [place] 143201-08-11 08:17:00 Test Item Value Reference Range Interpretation Comments Basophils (test code = 1.0 See_Comment [Aut omated message] The Basophils) system which ge nerated this result tra nsmitted reference range : <=1.0. The reference r leo was not used to int erpret this result as normal/abnormal . [place] 143201-08-11 08:17:00 Test Item Value Reference Range Interpretation Comments Neutrophils # (test code = Neutrophils 1.3 1.5-8.1 #) [place] 143201-08-11 08:17:00 Test Item Value Reference Range Interpretation Comments Lymphocytes # (test code = Lymphocytes 0.7 1.0-5.5 #) [place] 143201-08-11 08:17:00 Test Item Value Reference Range Interpretation Comments Monocytes # (test code 0.2 See_Comment [Aut omated message] The = Monocytes #) system which generated this result tra nsmitted reference range : <=0.8. The reference r leo was not used to int erpret this result as normal/abnormal . [place] 143201-08-11 08:17:00 Test Item Value Reference Range Interpretation Comments Eosinophils # (test code 0.1 See_Comment [A utomated message] The = Eosinophils #) system whic h generated this result tra nsmitted reference range : <=0.5. The reference r leo was not used to int erpret this result as normal/abnormal . [facility] [id number] 09:30:00 Test Item Value Reference Range Interpretation Comments Glucose Lvl (test code = Glucose Lvl) 61 70-99 [facility] [id number] 09:30:00 Test Item Value Reference Range Interpretation Comments BUN (test code = BUN) 13 7-22 [facility] [id number] 09:30:00 Test Item Value Reference Range Interpretation Comments Creatinine Lvl (test code = Creatinine 3.71 0.50-1.40 Lvl) [facility] [id number] 09:30:00 Test Item Value Reference Range Interpretation Comments Sodium Lvl (test code = Sodium Lvl) 136 135-145 [facility] [id number] 09:30:00 Test Item Value Reference Range Interpretation Comments Potassium Lvl (test code = Potassium 4.3 3.5-5.1 Lvl) [facility] [id number] 09:30:00 Test Item Value Reference Range Interpretation Comments Chloride Lvl (test code = Chloride Lvl) 103 95-109 [place] [address]-08-10 09:30:00 Test Item Value Reference Range Interpretation Comments CO2 (test code = CO2) 27 24-32 [place] [address]-08-10 09:30:00 Test Item Value Reference Range Interpretation Comments Calcium Lvl (test code = Calcium Lvl) 7.9 8.5-10.5 [place] [address]-08-10 09:30:00 Test Item Value Reference Range Interpretation Comments AGAP (test code = AGAP) 10.3 10.0-20.0 [place] [address]-08-10 09:30:00 Test Item Value Reference Range Interpretation Comments eGFR (test code = eGFR) 15 [place] 320381-08-10 09:30:00 Test Item Value Reference Range Interpretation Comments Magnesium Lvl (test code = Magnesium 2.3 1.8-2.4 Lvl) [place] [address]-08-10 09:30:00 Test Item Value Reference Range Interpretation Comments Phosphorus (test code = Phosphorus) 3.1 2.5-4.5 [place] [address]-08-10 09:30:00 Test Item Value Reference Range Interpretation Comments Segs (test code = Segs) 61.5 45.0-75.0 [place] 143201-08-10 09:30:00 Test Item Value Reference Range Interpretation Comments Lymphocytes (test code = Lymphocytes) 24.6 20.0-40.0 [place] [address]-08-10 09:30:00 Test Item Value Reference Range Interpretation Comments Monocytes (test code = Monocytes) 7.4 2.0-12.0 [place] [address]-08-10 09:30:00 Test Item Value Reference Range Interpretation Comments Eosinophils (test code = 5.5 See_Comment [A utomated message] The Eosinophils) system which ge nerated this result tra nsmitted reference range : <=4.0. The reference r leo was not used to int erpret this result as normal/abnormal . [place] [address]-08-10 09:30:00 Test Item Value Reference Range Interpretation Comments Basophils (test code = 1.0 See_Comment [Aut omated message] The Basophils) system which ge nerated this result tra nsmitted reference range : <=1.0. The reference r leo was not used to int erpret this result as normal/abnormal . [place] 143201-08-10 09:30:00 Test Item Value Reference Range Interpretation Comments Neutrophils # (test code = Neutrophils 1.6 1.5-8.1 #) [place] [address]-08-10 09:30:00 Test Item Value Reference Range Interpretation Comments Lymphocytes # (test code = Lymphocytes 0.6 1.0-5.5 #) [place] [address]-08-10 09:30:00 Test Item Value Reference Range Interpretation Comments Monocytes # (test code 0.2 See_Comment [Aut omated message] The = Monocytes #) system which generated this result tra nsmitted reference range : <=0.8. The reference r leo was not used to int erpret this result as normal/abnormal . [place] [address]-08-10 09:30:00 Test Item Value Reference Range Interpretation Comments Eosinophils # (test code 0.1 See_Comment [A utomated message] The = Eosinophils #) system whic h generated this result tra nsmitted reference range : <=0.5. The reference r leo was not used to int erpret this result as normal/abnormal . [place] 143201-08-10 09:30:00 Test Item Value Reference Range Interpretation [...] studies, if clinically indicated, are recommended. CPT: 61603 [place] [address]-08-10 09:30:00 Test Item Value Reference Range Interpretation Comments WBC (test code = WBC) 2.5 3.7-10.4 [place] [address]-08-10 09:30:00 Test Item Value Reference Range Interpretation Comments RBC (test code = RBC) 2.68 4.20-5.40 [place] 143201-08-10 09:30:00 Test Item Value Reference Range Interpretation Comments Hgb (test code = Hgb) 8.2 12.0-16.0 [place] [address]-08-10 09:30:00 Test Item Value Reference Range Interpretation Comments Hct (test code = Hct) 24.3 36.0-48.0 [place] 143201-08-10 09:30:00 Test Item Value Reference Range Interpretation Comments MCV (test code = MCV) 90.9 80.0-98.0 [place] 143201-08-10 09:30:00 Test Item Value Reference Range Interpretation Comments MCH (test code = MCH) 30.5 pg 27.0-31.0 [place] 143201-08-10 09:30:00 Test Item Value Reference Range Interpretation Comments MCHC (test code = MCHC) 33.6 32.0-36.0 [place] 143201-08-10 09:30:00 Test Item Value Reference Range Interpretation Comments RDW (test code = RDW) 19.4 11.5-14.5 [place] 143201-08-10 09:30:00 Test Item Value Reference Range Interpretation Comments Platelet (test code = Platelet) 70 133-450 [place] 143201-08-10 09:30:00 Test Item Value Reference Range Interpretation Comments MPV (test code = MPV) 10.7 7.4-10.4 [place] 320381-08-09 05:10:00 Test Item Value Reference Range Interpretation Comments Glucose Lvl (test code = Glucose Lvl) 69 70-99 [place] 320381-08-09 05:10:00 Test Item Value Reference Range Interpretation Comments BUN (test code = BUN) 29 7-22 [place] 320381-08-09 05:10:00 Test Item Value Reference Range Interpretation Comments Creatinine Lvl (test code = Creatinine 5.14 0.50-1.40 Lvl) [place] 320381-08-09 05:10:00 Test Item Value Reference Range Interpretation Comments Sodium Lvl (test code = Sodium Lvl) 134 135-145 [place] 320381-08-09 05:10:00 Test Item Value Reference Range Interpretation Comments Potassium Lvl (test code = Potassium 5.1 3.5-5.1 Lvl) [place] 320381-08-09 05:10:00 Test Item Value Reference Range Interpretation Comments Chloride Lvl (test code = Chloride Lvl) 98 95-109 [place] 320381-08-09 05:10:00 Test Item Value Reference Range Interpretation Comments CO2 (test code = CO2) 29 24-32 [place] 320381-08-09 05:10:00 Test Item Value Reference Range Interpretation Comments Calcium Lvl (test code = Calcium Lvl) 7.6 8.5-10.5 [place] 320381-08-09 05:10:00 Test Item Value Reference Range Interpretation Comments AGAP (test code = AGAP) 12.1 10.0-20.0 [place] 320381-08-09 05:10:00 Test Item Value Reference Range Interpretation Comments eGFR (test code = eGFR) 10 [place] 320381-08-09 05:10:00 Test Item Value Reference Range Interpretation Comments Magnesium Lvl (test code = Magnesium 2.3 1.8-2.4 Lvl) [place] 320381-08-09 05:10:00 Test Item Value Reference Range Interpretation Comments Phosphorus (test code = Phosphorus) 5.0 2.5-4.5 [place] 143201-08-09 05:10:00 Test Item Value Reference Range Interpretation Comments WBC (test code = WBC) 2.7 3.7-10.4 [place] 143201-08-09 05:10:00 Test Item Value Reference Range Interpretation Comments RBC (test code = RBC) 2.80 4.20-5.40 [place] 143201-08-09 05:10:00 Test Item Value Reference Range Interpretation Comments Hgb (test code = Hgb) 8.5 12.0-16.0 [place] 143201-08-09 05:10:00 Test Item Value Reference Range Interpretation Comments Hct (test code = Hct) 25.7 36.0-48.0 [place] 143201-08-09 05:10:00 Test Item Value Reference Range Interpretation Comments MCV (test code = MCV) 91.7 80.0-98.0 [facility]IhocmxnLWZULWJJYA4147-85-20 05:10:00 Test Item Value Reference Range Interpretation Comments MCH (test code = MCH) 30.4 pg 27.0-31.0 [facility] HospitalLwaiohgZXFFETTESR3276-87-81 05:10:00 Test Item Value Reference Range Interpretation Comments MCHC (test code = MCHC) 33.1 32.0-36.0 [facility] HospitalGdcsdftYRUVPIXUTV0448-38-78 05:10:00 Test Item Value Reference Range Interpretation Comments RDW (test code = RDW) 19.2 11.5-14.5 [facility] HospitalVlfhpkqDOSENVNJZF6621-12-02 05:10:00 Test Item Value Reference Range Interpretation Comments Platelet (test code = Platelet) 72 133-450 [facility] HospitalBwbutktVTYAPMSTJO8590-59-51 05:10:00 Test Item Value Reference Range Interpretation Comments MPV (test code = MPV) 9.9 7.4-10.4 [facility] HospitalLfkfvrzCFOVHVJYOW8100-32-38 05:10:00 Test Item Value Reference Range Interpretation Comments Segs (test code = Segs) 72.6 45.0-75.0 [facility] HospitalEaorlygATCHVGJGMF4942-56-11 05:10:00 Test Item Value Reference Range Interpretation Comments Lymphocytes (test code = Lymphocytes) 15.9 20.0-40.0 [facility] HospitalKvjdddjJJUUPQFPOL7143-90-90 05:10:00 Test Item Value Reference Range Interpretation Comments Monocytes (test code = Monocytes) 7.3 2.0-12.0 [place] 143201-08-09 05:10:00 Test Item Value Reference Range Interpretation Comments Eosinophils (test code = 3.4 See_Comment [A utomated message] The Eosinophils) system which ge nerated this result tra nsmitted reference range : <=4.0. The reference r leo was not used to int erpret this result as normal/abnormal . [place] 143201-08-09 05:10:00 Test Item Value Reference Range Interpretation Comments Basophils (test code = 0.8 See_Comment [Aut omated message] The Basophils) system which ge nerated this result tra nsmitted reference range : <=1.0. The reference r leo was not used to int erpret this result as normal/abnormal . [facility] HospitalPofkgltHAHCEGNULY9456-74-82 05:10:00 Test Item Value Reference Range Interpretation Comments Neutrophils # (test code = Neutrophils 1.9 1.5-8.1 #) [facility] HospitalJdjincwMSARBIBLDE2607-97-68 05:10:00 Test Item Value Reference Range Interpretation Comments Lymphocytes # (test code = Lymphocytes 0.4 1.0-5.5 #) [facility] HospitalFrpbusqGZPXEMFQLT9203-98-23 05:10:00 Test Item Value Reference Range Interpretation Comments Monocytes # (test code 0.2 See_Comment [Aut omated message] The = Monocytes #) system which generated this result tra nsmitted reference range : <=0.8. The reference r leo was not used to int erpret this result as normal/abnormal . [facility] HospitalXtljcxfKTJPZUOQOZ6614-88-57 05:10:00 Test Item Value Reference Range Interpretation Comments Eosinophils # (test code 0.1 See_Comment [A utomated message] The = Eosinophils #) system whic h generated this result tra nsmitted reference range : <=0.5. The reference r leo was not used to int erpret this result as normal/abnormal . [facility]2021-08-09 05:10:00 Test Item Value Reference Range Interpretation Comments Ca Ion WB (test code = Ca Ion WB) 1.10 1.05-1.25 [facility]2021-08-09 05:10:00 Test Item Value Reference Range Interpretation Comments Ca Norm WB (test code = Ca Norm WB) 1.06 1.05-1.25 [facility] BTJIFGEJGS0977-23-16 18:36:00 Test Item Value Reference Range Interpretation Comments C difficile DNA (test Negative (01/26/21 1:36 code = C difficile DNA) PM) [facility]2021-08-08 07:33:00 Test Item Value Reference Range Interpretation Comments Ca Ion WB (test code = Ca Ion WB) 1.12 1.05-1.25 [facility] [id number] 07:33:00 Test Item Value Reference Range Interpretation Comments Ca Norm WB (test code = Ca Norm WB) 1.07 1.05-1.25 [facility] [id number] 07:30:00 Test Item Value Reference Range Interpretation Comments Glucose Lvl (test code = Glucose Lvl) 65 70-99 [place] 320381-08-08 07:30:00 Test Item Value Reference Range Interpretation Comments BUN (test code = BUN) 21 7-22 [place] 320381-08-08 07:30:00 Test Item Value Reference Range Interpretation Comments Creatinine Lvl (test code = Creatinine 4.18 0.50-1.40 Lvl) [place] 320381-08-08 07:30:00 Test Item Value Reference Range Interpretation Comments Sodium Lvl (test code = Sodium Lvl) 136 135-145 [place] 320381-08-08 07:30:00 Test Item Value Reference Range Interpretation Comments Potassium Lvl (test code = Potassium 4.5 3.5-5.1 Lvl) [place] 320381-08-08 07:30:00 Test Item Value Reference Range Interpretation Comments Chloride Lvl (test code = Chloride Lvl) 99 95-109 [place] 320381-08-08 07:30:00 Test Item Value Reference Range Interpretation Comments CO2 (test code = CO2) 31 24-32 [place] 320381-08-08 07:30:00 Test Item Value Reference Range Interpretation Comments AGAP (test code = AGAP) 10.5 10.0-20.0 [place] 320381-08-08 07:30:00 Test Item Value Reference Range Interpretation Comments Calcium Lvl (test code = Calcium Lvl) 7.9 8.5-10.5 [place] 320381-08-08 07:30:00 Test Item Value Reference Range Interpretation Comments eGFR (test code = eGFR) 13 [place] 320381-08-08 07:30:00 Test Item Value Reference Range Interpretation Comments Magnesium Lvl (test code = Magnesium 2.2 1.8-2.4 Lvl) [place] 320381-08-08 07:30:00 Test Item Value Reference Range Interpretation Comments Phosphorus (test code = Phosphorus) 4.4 2.5-4.5 [place] 143201-08-08 07:30:00 Test Item Value Reference Range Interpretation Comments WBC (test code = WBC) 2.3 3.7-10.4 [place] 143201-08-08 07:30:00 Test Item Value Reference Range Interpretation Comments RBC (test code = RBC) 2.88 4.20-5.40 [place] 143201-08-08 07:30:00 Test Item Value Reference Range Interpretation Comments Hgb (test code = Hgb) 8.6 12.0-16.0 [place] 143201-08-08 07:30:00 Test Item Value Reference Range Interpretation Comments Hct (test code = Hct) 26.6 36.0-48.0 [facility] HospitalRhwrhhpKVYJVVPSFM4367-31-38 07:30:00 Test Item Value Reference Range Interpretation Comments MCV (test code = MCV) 92.2 80.0-98.0 [place] 143201-08-08 07:30:00 Test Item Value Reference Range Interpretation Comments MCH (test code = MCH) 29.8 pg 27.0-31.0 [facility] HospitalWahnbgkWHLHIJJGQV4079-74-99 07:30:00 Test Item Value Reference Range Interpretation Comments MCHC (test code = MCHC) 32.4 32.0-36.0 [facility] HospitalVdtrswxUNZKMAWJYI3099-60-48 07:30:00 Test Item Value Reference Range Interpretation Comments RDW (test code = RDW) 19.7 11.5-14.5 [facility] HospitalBlqpqnuUSUFWIMEGW9907-49-88 07:30:00 Test Item Value Reference Range Interpretation Comments Platelet (test code = Platelet) 83 133-450 [facility] HospitalUagnkvwIKPFTJXMEO3718-02-51 07:30:00 Test Item Value Reference Range Interpretation Comments MPV (test code = MPV) 10.2 7.4-10.4 [place] 143201-08-08 07:30:00 Test Item Value Reference Range Interpretation Comments Segs (test code = Segs) 64.0 45.0-75.0 [place] 143201-08-08 07:30:00 Test Item Value Reference Range Interpretation Comments Lymphocytes (test code = Lymphocytes) 24.1 20.0-40.0 [place] 143201-08-08 07:30:00 Test Item Value Reference Range Interpretation Comments Monocytes (test code = Monocytes) 7.0 2.0-12.0 [place] 143201-08-08 07:30:00 Test Item Value Reference Range Interpretation Comments Eosinophils (test code = 3.7 See_Comment [A utomated message] The Eosinophils) system which ge nerated this result tra nsmitted reference range : <=4.0. The reference r leo was not used to int erpret this result as normal/abnormal . [place] 143201-08-08 07:30:00 Test Item Value Reference Range Interpretation Comments Basophils (test code = 1.2 See_Comment [Aut omated message] The Basophils) system which ge nerated this result tra nsmitted reference range : <=1.0. The reference r leo was not used to int erpret this result as normal/abnormal . [place] 143201-08-08 07:30:00 Test Item Value Reference Range Interpretation Comments Neutrophils # (test code = Neutrophils 1.5 1.5-8.1 #) [place] 143201-08-08 07:30:00 Test Item Value Reference Range Interpretation Comments Lymphocytes # (test code = Lymphocytes 0.6 1.0-5.5 #) [place] 143201-08-08 07:30:00 Test Item Value Reference Range Interpretation Comments Monocytes # (test code 0.2 See_Comment [Aut omated message] The = Monocytes #) system which generated this result tra nsmitted reference range : <=0.8. The reference r leo was not used to int erpret this result as normal/abnormal . [place] 143201-08-08 07:30:00 Test Item Value Reference Range Interpretation Comments Eosinophils # (test code 0.1 See_Comment [A utomated message] The = Eosinophils #) system whic h generated this result tra nsmitted reference range : <=0.5. The reference r leo was not used to int erpret this result as normal/abnormal . [facility] [id number] 09:32:00 Test Item Value Reference Range Interpretation Comments Glucose Lvl (test code = Glucose Lvl) 59 70-99 [facility] [id number] 09:32:00 Test Item Value Reference Range Interpretation Comments BUN (test code = BUN) 11 7-22 [facility] [id number] 09:32:00 Test Item Value Reference Range Interpretation Comments Creatinine Lvl (test code = Creatinine 2.75 0.50-1.40 Lvl) [place] 320381-08-07 09:32:00 Test Item Value Reference Range Interpretation Comments Sodium Lvl (test code = Sodium Lvl) 138 135-145 [place] 320381-08-07 09:32:00 Test Item Value Reference Range Interpretation Comments Potassium Lvl (test code = Potassium 4.1 3.5-5.1 Lvl) [place] 320381-08-07 09:32:00 Test Item Value Reference Range Interpretation Comments Chloride Lvl (test code = Chloride Lvl) 104 95-109 [place] 320381-08-07 09:32:00 Test Item Value Reference Range Interpretation Comments CO2 (test code = CO2) 29 24-32 [place] 320381-08-07 09:32:00 Test Item Value Reference Range Interpretation Comments Calcium Lvl (test code = Calcium Lvl) 8.3 8.5-10.5 [place] 320381-08-07 09:32:00 Test Item Value Reference Range Interpretation Comments AGAP (test code = AGAP) 9.1 10.0-20.0 [place] 320381-08-07 09:32:00 Test Item Value Reference Range Interpretation Comments eGFR (test code = eGFR) 21 [place] 320381-08-07 09:32:00 Test Item Value Reference Range Interpretation Comments Magnesium Lvl (test code = Magnesium 2.2 1.8-2.4 Lvl) [place] 320381-08-07 09:32:00 Test Item Value Reference Range Interpretation Comments Phosphorus (test code = Phosphorus) 3.9 2.5-4.5 [place] 143201-08-07 09:32:00 Test Item Value Reference Range Interpretation Comments WBC (test code = WBC) 2.3 3.7-10.4 [place] [address]-08-07 09:32:00 Test Item Value Reference Range Interpretation Comments RBC (test code = RBC) 2.78 4.20-5.40 [place] [address]-08-07 09:32:00 Test Item Value Reference Range Interpretation Comments Hgb (test code = Hgb) 8.4 12.0-16.0 [place] [address]-08-07 09:32:00 Test Item Value Reference Range Interpretation Comments Hct (test code = Hct) 25.2 36.0-48.0 [facility]valeGbdokuaOIHIDQHYLR0476-68-24 09:32:00 Test Item Value Reference Range Interpretation Comments MCV (test code = MCV) 90.5 80.0-98.0 [facility] HospitalBhnnabnKOSESWNSIT7868-63-72 09:32:00 Test Item Value Reference Range Interpretation Comments MCH (test code = MCH) 30.4 pg 27.0-31.0 [facility] HospitalNjczbguAFXAQDXBQF3987-38-59 09:32:00 Test Item Value Reference Range Interpretation Comments MCHC (test code = MCHC) 33.5 32.0-36.0 [facility] SunnyvaleCaqphyqLJNDHYNERC5476-43-44 09:32:00 Test Item Value Reference Range Interpretation Comments RDW (test code = RDW) 19.0 11.5-14.5 [facility] HospitalTyhviflHUFRSLJMAR7280-08-83 09:32:00 Test Item Value Reference Range Interpretation Comments Platelet (test code = Platelet) 87 133-450 [facility] HospitalIkgripyLAFXPZDSQT9414-84-43 09:32:00 Test Item Value Reference Range Interpretation Comments MPV (test code = MPV) 10.0 7.4-10.4 [facility] [employer] [id number] 05:33:00 Test Item Value Reference Range Interpretation Comments ABO/Rh (test code = ABO/Rh) B POS [facility] [employer] [id number] 05:33:00 Test Item Value Reference Range Interpretation Comments Antibody Scrn (test Negative (01/24/21 12:33 code = Antibody Scrn) AM) [facility] HospitalApnkwjeCKTRTXSGUJ4219-19-00 05:33:00 Test Item Value Reference Range Interpretation Comments Segs (test code = Segs) 60.2 45.0-75.0 [facility] HospitalJxocktcLWTZTZKCLW0160-31-62 05:33:00 Test Item Value Reference Range Interpretation Comments Lymphocytes (test code = Lymphocytes) 28.6 20.0-40.0 [facility] HospitalBwrvbwuGPYCZUEMTC9705-13-45 05:33:00 Test Item Value Reference Range Interpretation Comments Monocytes (test code = Monocytes) 5.8 2.0-12.0 [facility]valeSxormkqSVISKOKPSO4897-62-56 05:33:00 Test Item Value Reference Range Interpretation Comments Eosinophils (test code = 4.2 See_Comment [A utomated message] The Eosinophils) system which ge nerated this result tra nsmitted reference range : <=4.0. The reference r leo was not used to int erpret this result as normal/abnormal . [facility] HospitalQicvzekMDNCEYKQWU3909-83-96 05:33:00 Test Item Value Reference Range Interpretation Comments Basophils (test code = 1.2 See_Comment [Aut omated message] The Basophils) system which ge nerated this result tra nsmitted reference range : <=1.0. The reference r leo was not used to int erpret this result as normal/abnormal . [facility] HospitalIwlvylbJEZGZTJXKH1033-80-76 05:33:00 Test Item Value Reference Range Interpretation Comments Neutrophils # (test code = Neutrophils 2.2 1.5-8.1 #) [facility] HospitalQkabepbJWRYQQMYZO9596-84-08 05:33:00 Test Item Value Reference Range Interpretation Comments Lymphocytes # (test code = Lymphocytes 1.1 1.0-5.5 #) [facility] HospitalIcnmqwmWOOOLTLLCF5179-60-48 05:33:00 Test Item Value Reference Range Interpretation Comments Monocytes # (test code 0.2 See_Comment [Aut omated message] The = Monocytes #) system which generated this result tra nsmitted reference range : <=0.8. The reference r leo was not used to int erpret this result as normal/abnormal . [facility] HospitalSpcccwjWZCZHGZURY3995-69-73 05:33:00 Test Item Value Reference Range Interpretation Comments Eosinophils # (test code 0.2 See_Comment [A utomated message] The = Eosinophils #) system whic h generated this result tra nsmitted reference range : <=0.5. The reference r leo was not used to int erpret this result as normal/abnormal . [facility] HospitalHmdxetaCHJBAOBVWY1652-56-19 05:53:00 Test Item Value Reference Range Interpretation Comments PT (test code = PT) 14.4 s 12.0-14.7 [facility] HospitalArrntlfADFIUIKSSQ4106-17-79 05:53:00 Test Item Value Reference Range Interpretation Comments INR (test code = INR) 1.13 1 0.85-1.17 [facility] HospitalCkazapsRMBHENWSZF9238-30-52 05:53:00 Test Item Value Reference Range Interpretation Comments Fibrinogen Lvl (test code = Fibrinogen 319 230-510 Lvl) [place] 143201-08-05 05:53:00 Test Item Value Reference Range Interpretation Comments Thrombin Time (test code = Thrombin 15.9 s 15.0-21.2 Time) [place] 143201-08-05 05:53:00 Test Item Value Reference Range Interpretation Comments PTT (test code = PTT) 47.0 s 22.9-35.8 [facility] HospitalWxihvzxAOTTYOCTXE7087-96-32 05:53:00 Test Item Value Reference Range Interpretation Comments D-Dimer (test code = D-Dimer) 0.91 [place] 143201-08-05 05:53:00 Test Item Value Reference Range Interpretation Comments Basophils # (test code 0.1 See_Comment [Aut omated message] The = Basophils #) system which generated this result tra nsmitted reference range : <=0.2. The reference r leo was not used to int erpret this result as normal/abnormal . [facility]iusRO[facility] [id number] 05:53:00 Test Item Value Reference Range Interpretation Comments Ca Ion WB (test code = Ca Ion WB) 1.24 1.05-1.25 [facility]MeeGeniusROID [id number] 05:53:00 Test Item Value Reference Range Interpretation Comments Ca Norm WB (test code = Ca Norm WB) 1.25 1.05-1.25 [facility] [id number] 10:09:00 Test Item Value Reference Range Interpretation Comments ALT (test code = ALT) 49 See_Comment [Auto mated message] The system which ge nerated this result transmit rohit reference range : <=65. The reference range was not used to interpr et this result as reji l/abnormal. [facility] [employer] [id number] 10:09:00 Test Item Value Reference Range Interpretation Comments Albumin Lvl (test code = Albumin Lvl) 2.8 3.5-5.0 [facility] [id number] 10:09:00 Test Item Value Reference Range Interpretation Comments Alk Phos (test code = Alk Phos) 41 39-136 [facility] [id number] 10:09:00 Test Item Value Reference Range Interpretation Comments Bili Direct (test code 0.2 See_Comment [Aut omated message] The = Bili Direct) system which generated this result tra nsmitted reference range : <=0.3. The reference r leo was not used to int erpret this result as reji l/abnormal. [facility] [id number] 10:09:00 Test Item Value Reference Range Interpretation Comments Bili Total (test code = Bili Total) 0.6 0.2-1.3 [facility] [id number] 10:09:00 Test Item Value Reference Range Interpretation Comments Bili Indirect (test 0.4 See_Comment [Automa rohit message] The code = Bili Indirect) system which generated this result tra nsmitted reference range : <=1.0. The reference r leo was not used to int erpret this result as normal/abnormal . [facility] [id number] 10:09:00 Test Item Value Reference Range Interpretation Comments Total Protein (test code = Total 5.6 6.4-8.4 Protein) [facility] [id number] 10:09:00 Test Item Value Reference Range Interpretation Comments AST (test code = AST) 33 See_Comment [Auto mated message] The system which ge nerated this result transmit rohit reference range : <=37. The reference range was not used to interpr et this result as reji l/abnormal. [facility] [id number] 10:09:00 Test Item Value Reference Range Interpretation Comments Globulin (test code = Globulin) 2.8 2.7-4.2 [facility] [id number] 10:09:00 Test Item Value Reference Range Interpretation Comments A/G Ratio (test code = A/G Ratio) 1.0 1 0.7-1.6 [facility] [id number] 10:09:00 Test Item Value Reference Range Interpretation Comments Amylase Lvl (test code = Amylase Lvl) 19 25-115 [facility] [id number] 10:09:00 Test Item Value Reference Range Interpretation Comments Lipase Lvl (test code = [place] [address] [facility] SunnyvaleBcuvtzpLANAUUMETD3978-01-98 10:09:00 Test Item Value Reference Range Interpretation Comments PTT (test code = PTT) 41.4 s 22.9-35.8 [facility] SunnyvaleZlyzygzMDAZPIZIHP4305-09-13 10:09:00 Test Item Value Reference Range Interpretation Comments PT (test code = PT) 15.4 s 12.0-14.7 [facility] SunnyvaleInzybfeLWZYOXYBKN5903-14-90 10:09:00 Test Item Value Reference Range Interpretation Comments INR (test code = INR) 1.24 1 0.85-1.17 [facility]QTJIXXGPUL8836-51-86 10:09:00 Test Item Value Reference Range Interpretation Comments Fibrinogen Lvl (test code = Fibrinogen 312 230-510 Lvl) [facility] SunnyvaleQzzhlfzIKKKCNXQAJ0055-60-52 10:09:00 Test Item Value Reference Range Interpretation Comments Thrombin Time (test code = Thrombin 16.6 s 15.0-21.2 Time) [facility] HospitalGyxqpihHCFRZHWAKT8833-95-04 10:09:00 Test Item Value Reference Range Interpretation Comments D-Dimer (test code = D-Dimer) 4.91 [facility] HospitalRzzjbxkVQQOEEPSCM8187-90-90 10:09:00 Test Item Value Reference Range Interpretation Comments Basophils # (test code 0.1 See_Comment [Aut omated message] The = Basophils #) system which generated this result tra nsmitted reference range : <=0.2. The reference r leo was not used to int erpret this result as normal/abnormal . [facility] [place] MDDZDYMII7622-86-70 10:09:00 Test Item Value Reference Range Interpretation Comments Hgb A1C (test code = Hgb A1C) 5.6 [facility]valeCHEM [id number] 09:07:00 Test Item Value Reference Range Interpretation Comments Amylase Lvl (test code = Amylase Lvl) 4 25-115 [facility] SunnyvaleSovtmtgMZQVIRMKEL7001-32-53 09:07:00 Test Item Value Reference Range Interpretation Comments Thrombin Time (test code = Thrombin 18.0 s 15.0-21.2 Time) [facility]TpdqwgsZJQYOGSHOM9163-17-32 09:07:00 Test Item Value Reference Range Interpretation Comments PT (test code = PT) 24.6 s 12.0-14.7 [facility] HospitalMsmwzqnJKXNENPIOE6797-60-04 09:07:00 Test Item Value Reference Range Interpretation Comments INR (test code = INR) 2.31 1 0.85-1.17 [facility] SunnyvaleSgsdadoPHMEABQZBI7657-56-67 09:07:00 Test Item Value Reference Range Interpretation Comments PTT (test code = PTT) 57.5 s 22.9-35.8 [facility] SunnyvaleQxflyfnUHDWAAROHR4158-35-10 09:07:00 Test Item Value Reference Range Interpretation Comments Fibrinogen Lvl (test code = Fibrinogen 125 230-510 Lvl) [facility] SunnyvaleLexyihsXDQDGUGDNI8770-48-62 09:07:00 Test Item Value Reference Range Interpretation Comments D-Dimer (test code = D-Dimer) 2.28 [facility]aleBL[facility] [id number] 04:52:00 Test Item Value Reference Range Interpretation Comments RBC product (test code Product available = RBC product) (01/21/21 11:52 PM) [facility] SunnyvaleCARDIAC [id number] 00:38:00 Test Item Value Reference Range Interpretation Comments Troponin-I (test code no gt See_Comment [Auto mated message] The = Troponin-I) system which g enerated this result transmit rohit reference range : <=0.40. The reference r leo was not used to interpr et this result as reji l/abnormal. [facility]landStretchr [id number] 17:47:00 Test Item Value Reference Range Interpretation Comments BNP (test code = BNP) 2324 [facility] Sunny[facility]aleSeldar PharmaAC [id number] 17:47:00 Test Item Value Reference Range Interpretation Comments Troponin-I (test code 0.02 See_Comment [Auto mated message] The = Troponin-I) system which g enerated this result transmit rohit reference range : <=0.40. The reference r leo was not used to interpr et this result as reji l/abnormal. [facility] MainlandBzomlvkGEUVNDUJSZ3774-33-00 17:47:00 Test Item Value Reference Range Interpretation Comments Hep Bs Ag (test code Negative *NA*(01/21/21 = Hep Bs Ag) 12:47 PM) [facility]21GRAMSCHEM [id number] 17:43:00 Test Item Value Reference Range Interpretation Comments B/C Ratio (test code = B/C Ratio) 5 1 6-25 [facility] [id number] 17:43:00 Test Item Value Reference Range Interpretation Comments ALT (test code = ALT) 66 See_Comment [Auto mated message] The system which ge nerated this result transmit rohit reference range : <=65. The reference range was not used to interpr et this result as reji l/abnormal. [facility] [employer] [id number] 17:43:00 Test Item Value Reference Range Interpretation Comments Albumin Lvl (test code = Albumin Lvl) 3.0 3.5-5.0 [facility] [employer] [id number] 17:43:00 Test Item Value Reference Range Interpretation Comments Alk Phos (test code = Alk Phos) 40 39-136 [facility] [employer] [id number] 17:43:00 Test Item Value Reference Range Interpretation Comments Bili Total (test code = Bili Total) 0.5 0.2-1.3 [facility] [id number] 17:43:00 Test Item Value Reference Range Interpretation Comments Total Protein (test code = Total 5.7 6.4-8.4 Protein) [facility] [id number] 17:43:00 Test Item Value Reference Range Interpretation Comments AST (test code = AST) 52 See_Comment [Auto mated message] The system which ge nerated this result transmit rohit reference range : <=37. The reference range was not used to interpr et this result as reji l/abnormal. [employer] [id number] 17:43:00 Test Item Value Reference Range Interpretation Comments Globulin (test code = Globulin) 2.7 2.7-4.2 [facility] [id number] 17:43:00 Test Item Value Reference Range Interpretation Comments A/G Ratio (test code = A/G Ratio) 1.1 1 0.7-1.6 [facility] [id number] 17:43:00 Test Item Value Reference Range Interpretation Comments Lactic Acid Lvl (test code = Lactic 1.1 0.5-2.2 Acid Lvl) [facility] [id number] 16:20:00 Test Item Value Reference Range Interpretation Comments ABO/Rh (test code = ABO/Rh) B POS [facility] [id number] 16:20:00 Test Item Value Reference Range Interpretation Comments Antibody Scrn (test Negative (01/21/21 11:20 code = Antibody Scrn) AM) [id number] 16:20:00 Test Item Value Reference Range Interpretation Comments Anisocyte (test code = 1+ *ABN*(01/21/21 Anisocyte) 11:20 AM) [facility] [id number] 15:35:00 Test Item Value Reference Range Interpretation Comments Lactase Lvl (test code = Lactase Lvl) 2.0 [facility] [id number] 15:35:00 Test Item Value Reference Range Interpretation Comments Sucrase Lvl (test code = Sucrase Lvl) 38.6 [facility] [id number] 15:35:00 Test Item Value Reference Range Interpretation Comments Maltase Lvl (test code = Maltase Lvl) 177.2 [facility] [id number] 15:35:00 Test Item Value Reference Range Interpretation Comments Palatinase Lvl (test code = Palatinase 13.8 Lvl) [id number] 13:21:00 Test Item Value Reference Range Interpretation Comments Potassium WB (test code = Potassium WB) 5.1 3.5-5.1 [id number] 13:21:00 Test Item Value Reference Range Interpretation Comments S Preg (test code = S Negative 8*NA*(01/21/21 Preg) 8:21 AM) [id number] 11:19:00 Test Item Value Reference Range Interpretation Comments Coronavirus (COVID-19) Not Detected (01/21/21 EMANUEL (test code = 6:19 AM) Coronavirus (COVID-19) EMANUEL) [facility] [id number] 16:39:05 Test Item Value Reference Range Interpretation Comments Glucose POC (test 183 mg/dL 70-115 H If you con director of financial aid your code = Glucose POC) patient critically ill, the Merlin-Accu Check Infrom II meter should not be used for Glucose determination. Draw a venous Glucose and send to the main Lab for analysis. Urine [id number] 11:32:13 Test Item Value Reference Range Interpretation [...] Escherichia coli C Urine Added by GL_SJM_UA_CUL_INDPOC [id number] 07:52:10 Test Item Value Reference Range Interpretation Comments Glucose POC (test 160 mg/dL 70-115 H If you con director of financial aid your code = Glucose POC) patient critically ill, the Merlin-Accu Check Infrom II meter should not be used for Glucose determination. Draw a venous Glucose and send to the main Lab for analysis. POC [id number] 19:32:05 Test Item Value Reference Range Interpretation Comments Glucose POC (test 184 mg/dL 70-115 H If you con director of financial aid your code = Glucose POC) patient critically ill, the Merlin-Accu Check Infrom II meter should not be used for Glucose determination. Draw a venous Glucose and send to the main Lab for analysis. POC [id number] 17:16:35 Test Item Value Reference Range Interpretation Comments Glucose POC (test 281 mg/dL 70-115 H Notify RN or MDIf you code = Glucose POC) consider your patient critically ill, the Merlin-Accu Chec k Infrom II meter should not be used for Glucos e determination. Draw a venous Glucose and send to the main Lab for analysis. POC [id number] 12:00:38 Test Item Value Reference Range Interpretation Comments Glucose POC (test 138 mg/dL 70-115 H Notify RN or MDIf you code = Glucose POC) consider your patient critically ill, the Merlin-Accu Chec k Infrom II meter should not be used for Glucos e determination. Draw a venous Glucose and send to the main Lab for analysis. POC [id number] 07:41:32 Test Item Value Reference Range Interpretation Comments Glucose POC (test 206 mg/dL 70-115 H Notify RN or MDIf you code = Glucose POC) consider your patient critically ill, the Merlin-Accu Chec k Infrom II meter should not be used for Glucos e determination. Draw a venous Glucose and send to the main Lab for analysis. Urinalysis [id number] 21:07:21 Test Item Value Reference Range Interpretation Comments UA WBC (test code = UA WBC) TNTC 0-5 A UA RBC (test code = UA RBC) 6-10 0-5 A UA Bacteria (test code = UA Bacteria) Profuse A UA Squam Epithelial (test code = UA 6-10 A Squam Epithelial) Urinalysis with Culture, if [id number] 20:35:14 Test Item Value Reference Range Interpretation [...] Micro Indicated Not Indicated A Ind?) POC [id number] 19:06:34 Test Item Value Reference Range Interpretation Comments Glucose POC (test 207 mg/dL 70-115 H If you con director of financial aid your code = Glucose POC) patient critically ill, the Merlin-Accu Check Infrom II meter should not be used for Glucose determination. Draw a venous Glucose and send to the main Lab for analysis. POC [id number] 17:12:03 Test Item Value Reference Range Interpretation Comments Glucose POC (test 173 mg/dL 70-115 H Notify RN or MDIf you code = Glucose POC) consider your patient critically ill, the Merlin-Accu Chec k Infrom II meter should not be used for Glucos e determination. Draw a venous Glucose and send to the main Lab for analysis. POC [id number] 11:58:01 Test Item Value Reference Range Interpretation Comments Glucose POC (test 289 mg/dL 70-115 H Notify RN or MDIf you code = Glucose POC) consider your patient critically ill, the Merlin-Accu Chec k Infrom II meter should not be used for Glucos e determination. Draw a venous Glucose and send to the main Lab for analysis. POC [id number] 08:19:37 Test Item Value Reference Range Interpretation Comments Glucose POC (test 201 mg/dL 70-115 H Notify RN or MDIf you code = Glucose POC) consider your patient critically ill, the Merlin-Accu Chec k Infrom II meter should not be used for Glucos e determination. Draw a venous Glucose and send to the main Lab for analysis. POC [id number] 20:37:35 Test Item Value Reference Range Interpretation Comments Glucose POC (test 272 mg/dL 70-115 H If you con director of financial aid your code = Glucose POC) patient critically ill, the Merlin-Accu Check Infrom II meter should not be used for Glucose determination. Draw a venous Glucose and send to the main Lab for analysis. POC [id number] 17:23:05 Test Item Value Reference Range Interpretation Comments Glucose POC (test 229 mg/dL 70-115 H If you con director of financial aid your code = Glucose POC) patient critically ill, the Merlin-Accu Check Infrom II meter should not be used for Glucose determination. Draw a venous Glucose and send to the main Lab for analysis. POC [id number] 12:01:01 Test Item Value Reference Range Interpretation Comments Glucose POC (test 155 mg/dL 70-115 H If you con director of financial aid your code = Glucose POC) patient critically ill, the Merlin-Accu Check Infrom II meter should not be used for Glucose determination. Draw a venous Glucose and send to the main Lab for analysis. POC [id number] 08:07:32 Test Item Value Reference Range Interpretation Comments Glucose POC (test 248 mg/dL 70-115 H If you con director of financial aid your code = Glucose POC) patient critically ill, the Merlin-Accu Check Infrom II meter should not be used for Glucose determination. Draw a venous Glucose and send to the main Lab for analysis. IG [id number] 06:50:39 Test Item Value Reference Range Interpretation Comments IG (test code = IG) 0.7 % 0.0-5.0 IG Abs (test code = IG Abs) 0 x10 N Complete Blood Count with [id number] 06:50:38 Test Item Value Reference Range Interpretation [...] code = IPF) 0 % N Automated [id number] 06:50:38 Test Item Value Reference Range Interpretation Comments Neutro Auto (test code = Neutro 50.3 % 36.0-70.0 Auto) Lymph Auto (test code = Lymph Auto) 38.6 % 12.0-44.0 Trinity Auto (test code = Trinity Auto) 7.3 % 0.0-11.0 Eos, Auto (test code = Eos, Auto) 2.4 % 0.0-7.0 Basophil Auto (test code = Basophil 0.7 % 0.0-2.0 Auto) Neutro Absolute (test code = Neutro 3.0 x10 1.6-7.4 Absolute) Lymph Absolute (test code = Lymph 2.28 x10 .50-4.60 Absolute) Trinity Absolute (test code = Trinity .43 x10 .00-1.20 Absolute) Eos Absolute (test code = Eos 0.14 x10 0.00-0.74 Absolute) Baso Absolute (test code = Baso 0.04 x10 0.00-0.21 Absolute) Basic Metabolic [id number] 05:38:20 Test Item Value Reference Range Interpretation [...] = Lipemia) 0 mg/dL 8-11 Basic Metabolic [id number] 05:38:20 Test Item Value Reference Range Interpretation [...] = 0 mg/dL 8-11 Lipemia) Basic Metabolic [id number] 05:38:20 Test Item Value Reference Range Interpretation [...] code = 0 mg/dL 8-11 Lipemia) POC [id number] 20:28:33 Test Item Value Reference Range Interpretation Comments Glucose POC (test 169 mg/dL 70-115 H If you con director of financial aid your code = Glucose POC) patient critically ill, the Merlin-Accu Check Infrom II meter should not be used for Glucose determination. Draw a venous Glucose and send to the main Lab for analysis. POC [id number] 16:39:30 Test Item Value Reference Range Interpretation Comments Glucose POC (test 103 mg/dL 70-115 If you con director of financial aid your code = Glucose POC) patient critically ill, the Merlin-Accu Check Infrom II meter should not be used for Glucose determination. Draw a venous Glucose and send to the main Lab for analysis. RPR [id number] 12:08:56 Test Item Value Reference Range Interpretation Comments RPR Qual (test code = RPR Qual) Non-Reactive Non-Reactive Reactive Control (test code = Reactive Reactive Control) Weak Reactive Control (test Weak Reactive code = Weak Reactive Control) Non-Reactive Control (test code Non-Reactive = Non-Reactive Control) Lot # (test code = Lot #) [id number] N Expiration Dt (test code = 03-20-2021 N Expiration Dt) POC [id number] 11:52:31 Test Item Value Reference Range Interpretation Comments Glucose POC (test 250 mg/dL 70-115 H If you con director of financial aid your code = Glucose POC) patient critically ill, the Merlin-Accu Check Infrom II meter should not be used for Glucose determination. Draw a venous Glucose and send to the main Lab for analysis. POC [id number] 07:55:29 Test Item Value Reference Range Interpretation Comments Glucose POC (test 205 mg/dL 70-115 H If you con director of financial aid your code = Glucose POC) patient critically ill, the Merlin-Accu Check Infrom II meter should not be used for Glucose determination. Draw a venous Glucose and send to the main Lab for analysis. Lipid [id number] 05:46:04 Test Item Value Reference Range Interpretation [...] LDL/HDL Ratio=L DL Calc/HDL Chol Thyroid Stimulating [id number] 05:46:04 Test Item Value Reference Range Interpretation Comments TSH (test code = TSH) 3.274 mcIU/mL 0.550-4.780 Hemoglobin [id number] 05:41:08 Test Item Value Reference Range Interpretation Comments Hemoglobin A1c (test code 7.6 % 4.0-5.8 H Di abetic >=6.5 = Hemoglobin A1c) %Prediabet es 5.7-6.4 %Normal <5.7 % Hepatitis B Surface [id number] 21:19:36 Test Item Value Reference Range Interpretation Comments Hep Bs Ag (test code = Hep Bs Non-Reactive Non-Reactive Ag) Novel Coronavirus SARS-CoV-2, [id number] 11:16:16 Test Item Value Reference Range Interpretation Comments SARS-CoV-2 PCR NEGATIVE Negative Positive resu lts are (test code = indicative of a ctive SARS-CoV-2 PCR) infection wi th SARS-CoV-2; clinical correl ation with patient history and other diagnostic info rmation is necessary to de termine patient infecti on status.Presumpt montse positive result s -INTERPRET WITH CAUTION: Result [...] Emergency Use Authorization." Novel Coronavirus (COVID-19), EMANUEL [id number] 11:11:24TNPTest not sent and performed at [facility].Rapid was perfomed in Microbiology.Wrong covid test was ord ered.Urine DOA [id number] 00:17:49 Test Item Value Reference Range Interpretation [...] Propoxyphene Confirmation wi thin 7 days. Alcohol [id number] 00:17:29 Test Item Value Reference Range Interpretation Comments Ethanol Level 9.0 mg/dL N The pharmacolo gical (test code = response to blo od alcohol Ethanol Level) levels may va ry from individual to i ndividual. The fatal omkar ntration has been report ed to be >400 mg/dl. Comprehensive Metabolic [id number] 00:17:28 Test Item Value Reference Range Interpretation [...] = Lipemia) 0 g/dL 1-2 Comprehensive Metabolic [id number] 00:17:28 Test Item Value Reference Range Interpretation [...] = 0 g/dL 1-2 Lipemia) Comprehensive Metabolic [id number] 00:17:28 Test Item Value Reference Range Interpretation [...] g/dL 1-2 Lipemia) Complete Blood Count with [id number] 23:26:28 Test Item Value Reference Range Interpretation [...] code = IPF) 0 % N Automated [id number] 23:26:28 Test Item Value Reference Range Interpretation Comments Neutro Auto (test code = Neutro 67.1 % 36.0-70.0 Auto) Lymph Auto (test code = Lymph Auto) 23.3 % 12.0-44.0 Trinity Auto (test code = Trinity Auto) 5.8 % 0.0-11.0 Eos, Auto (test code = Eos, Auto) 2.3 % 0.0-7.0 Basophil Auto (test code = Basophil 0.8 % 0.0-2.0 Auto) Neutro Absolute (test code = Neutro 6.0 x10 1.6-7.4 Absolute) Lymph Absolute (test code = Lymph 2.10 x10 .50-4.60 Absolute) Trinity Absolute (test code = Trinity .52 x10 .00-1.20 Absolute) Eos Absolute (test code = Eos 0.21 x10 0.00-0.74 Absolute) Baso Absolute (test code = Baso 0.07 x10 0.00-0.21 Absolute) IG [id number] 23:26:28 Test Item Value Reference Range Interpretation Comments IG (test code = IG) 0.7 % 0.0-5.0 IG Abs (test code = IG Abs) 0 x10 N HERPES VIRUS ANTIBODY, [id number] 21:46:00 Test Item Value Reference Range Interpretation Comments HERPES VIRUS IGM (BEAKER) Negative SE E ATTACHMENT (test code = 1808) BLOOD [id number] 06:00:00 Test Item Value Reference Range Interpretation Comments CULTURE (BEAKER) (test No growth in 5 days code = 1095) BLOOD [id number] 06:00:00 Test Item Value Reference Range Interpretation Comments CULTURE (BEAKER) (test No growth in 5 days code = 1095) POCT-GLUCOSE [id number] 12:11:00 Test Item Value Reference Range Interpretation Comments POC-GLUCOSE METER 154 mg/dL 70-110 H TESTED AT [place] [address] [facility] (test code = [facility] 1538) [id number] POCT-GLUCOSE [id number] 07:53:00 Test Item Value Reference Range Interpretation Comments POC-GLUCOSE METER 87 mg/dL 70-110 TESTED AT [place] [address] ([facility] (test code = [facility] [address]38) POCT-GLUCOSE [id number] 06:49:00 Test Item Value Reference Range Interpretation Comments POC-GLUCOSE METER 79 mg/dL 70-110 TESTED AT [place] [address] ([facility] (test code = [facility] [address] 1538) COMPREHENSIVE METABOLIC [id number] 06:15:00 Test Item Value Reference Range Interpretation [...] S NOT APPLICABLE FOR DIALYSIS PATIEN TS. [id number] 06:11:00 Test Item Value Reference Range Interpretation Comments MAGNESIUM (BEAKER) (test code = 2.1 mg/dL 1.6-2.6 627) HEPATIC FUNCTION [id number] 06:11:00 Test Item Value Reference Range Interpretation [...] code = 513 U/L 6-55 H 347) [id number] 05:30:00 Test Item Value Reference Range Interpretation Comments FIBRINOGEN LEVEL (BEAKER) (test 368 mg/dl 225-434 code = 658) [id number] 05:30:00 Test Item Value Reference Range Interpretation Comments PARTIAL THROMBOPLASTIN TIME 42.2 seconds 22.5-36.0 H ([facility]) (test code = 760) PROTHROMBIN [id number] 05:29:00 Test Item Value Reference Range Interpretation Comments PROTIME ([facility]) (test code = 14.8 seconds 11.7-14.7 H 759) INR ([facility]) (test code = 370) 1.2 <=5.9 RECOMMENDED COUMADIN/WARFARIN INR THERAPY RANGESSTANDARD DOSE: 2.0 - 3.0 Includes: PROPHYLAXIS for venous thrombosis, systemic embolization; TREATMENT for venous thrombosis and/or pulmonary embolus.HIGH RISK: Target INR is 2.5-3.5 for patients with mechanical heart valves.POCT-GLUCOSE [id number] 21:09:00 Test Item Value Reference Range Interpretation Comments POC-GLUCOSE METER 178 mg/dL 70-110 H TESTED AT [place] [address] ([facility]) (test code = [place] [facility] 1538) [address] POCT-GLUCOSE [id number] 17:18:00 Test Item Value Reference Range Interpretation Comments POC-GLUCOSE METER 178 mg/dL 70-110 H TESTED AT [place] [address] ([facility]) (test code = [place] [facility] 1538) [address] POCT-GLUCOSE [id number] 13:48:00 Test Item Value Reference Range Interpretation Comments POC-GLUCOSE METER 150 mg/dL 70-110 H TESTED AT [place] [address] ([facility]) (test code = [place] [facility] 1538) [address] FACTOR 5 ACTIVITY (BLEEDING RISK)2017-01-06 10:04:00 Test Item Value Reference Range Interpretation Comments FACTOR V ACTIVITY ([facility]) (test code 90.0 % 60.0-150.0 = 665) Effective 10/24/2013: Reference Range Change-Adult onlyNew: 60.0-150.0 Previous: 50.0-150.0CYTOMEGALOVIRUS ANTIBODY, [id number] 09:42:00 Test Item Value Reference Range Interpretation Comments CYTOMEGALOVIRUS IGM ANTIBODY Negative ([facility]) (test code = 816) HERPES VIRUS ANTIBODY, [id number] 08:59:00 Test Item Value Reference Range Interpretation Comments 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[facility]) (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 G 1807) CYTOMEGALOVIRUS ANTIBODY, [id number] 08:59:00 Test Item Value Reference Range Interpretation Comments CYTOMEGALOVIRUS IGG ANTIBODY Positive (BEAKER) (test code = 790) EBV-VCA ANTIBODY, [id number] 08:59:00 Test Item Value Reference Range Interpretation Comments JASE-WALL VCA IGG (BEAKER) (test Positive code = 983) EBV-VCA ANTIBODY, [id number] 08:59:00 Test Item Value Reference Range Interpretation Comments JASE-WALL VCA IGM (BEAKER) (test Negative code = 984) POCT-GLUCOSE [id number] 07:59:00 Test Item Value Reference Range Interpretation Comments POC-GLUCOSE METER 81 mg/dL 70-110 TESTED AT [facility] 6720 (BEAKER) (test code = [place] [address] 1538) COMPREHENSIVE METABOLIC [id number] 06:23:00 Test Item Value Reference Range Interpretation [...] S NOT APPLICABLE FOR DIALYSIS PATIEN TS. [id number] 06:17:00 Test Item Value Reference Range Interpretation Comments MAGNESIUM (BEAKER) (test code = 1.8 mg/dL 1.6-2.6 627) HEPATIC FUNCTION [id number] 06:17:00 Test Item Value Reference Range Interpretation [...] code = 779 U/L 6-55 H 347) [id number] 06:00:00 Test Item Value Reference Range Interpretation Comments FIBRINOGEN LEVEL (BEAKER) (test 390 mg/dl 225-434 code = 658) [id number] 06:00:00 Test Item Value Reference Range Interpretation Comments PARTIAL THROMBOPLASTIN TIME 40.2 seconds 22.5-36.0 H (BEAKER) (test code = 760) PROTHROMBIN [id number] 05:59:00 Test Item Value Reference Range Interpretation Comments PROTIME (BEAKER) (test code = 14.6 seconds 11.7-14.7 759) INR (BEAKER) (test code = 370) 1.2 <=5.9 RECOMMENDED COUMADIN/WARFARIN INR THERAPY RANGESSTANDARD DOSE: 2.0 - 3.0 Includes: PROPHYLAXIS for venous thrombosis, systemic embolization; TREATMENT for venous thrombosis and/or pulmonary embolus.HIGH RISK: Target INR is 2.5-3.5 for patients with mechanical heart valves.POCT-GLUCOSE [id number] 21:46:00 Test Item Value Reference Range Interpretation Comments POC-GLUCOSE METER 153 mg/dL 70-110 H TESTED AT [place] [address] ([facility]) (test code = [facility] 1538) [address] POCT-GLUCOSE [id number] 18:47:00 Test Item Value Reference Range Interpretation Comments POC-GLUCOSE METER 181 mg/dL 70-110 H TESTED AT [place] [address] ([facility]) (test code = [facility] 1538) [address] POCT-GLUCOSE [id number] 12:40:00 Test Item Value Reference Range Interpretation Comments POC-GLUCOSE METER 178 mg/dL 70-110 H TESTED AT [place] [address] ([facility]) (test code = [facility] 1538) [address] POCT-GLUCOSE [id number] 07:51:00 Test Item Value Reference Range Interpretation Comments POC-GLUCOSE METER 166 mg/dL 70-110 H TESTED AT [place] [address] ([facility]) (test code = [facility] 1538) [address] COMPREHENSIVE METABOLIC [id number] 03:26:00 Test Item Value Reference Range Interpretation [...] S NOT APPLICABLE FOR DIALYSIS PATIEN TS. [id number] 03:22:00 Test Item Value Reference Range Interpretation Comments MAGNESIUM (BEAKER) (test code = 1.4 mg/dL 1.6-2.6 L 627) HEPATIC FUNCTION [id number] 03:22:00 Test Item Value Reference Range Interpretation [...] code = 1009 U/L 6-55 H 347) [id number] 03:12:00 Test Item Value Reference Range Interpretation Comments AMMONIA (BEAKER) (test code = 348) 29 mol/L 18-72 [id number] 03:10:00 Test Item Value Reference Range Interpretation Comments PARTIAL THROMBOPLASTIN TIME 42.3 seconds 22.5-36.0 H (BEAKER) (test code = 760) PROTHROMBIN [id number] 03:09:00 Test Item Value Reference Range Interpretation Comments PROTIME (BEAKER) (test code = 16.4 seconds 11.7-14.7 H 759) INR (BEAKER) (test code = 370) 1.3 <=5.9 RECOMMENDED COUMADIN/WARFARIN INR THERAPY RANGESSTANDARD DOSE: 2.0 - 3.0 Includes: PROPHYLAXIS for venous thrombosis, systemic embolization; TREATMENT for venous thrombosis and/or pulmonary embolus.HIGH RISK: Target INR is 2.5-3.5 for patients with mechanical heart valves.[id number] 03:09:00 Test Item Value Reference Range Interpretation Comments FIBRINOGEN LEVEL (BEAKER) (test 413 mg/dl 225-434 code = 658) CBC W/PLT COUNT & AUTO [id number] 03:09:00 Test Item Value Reference Range Interpretation [...] L 0.00-0.20 (test code = 417) 0.00POCT-GLUCOSE [id number] 22:33:00 Test Item Value Reference Range Interpretation Comments POC-GLUCOSE METER 230 mg/dL 70-110 H TESTED AT [facility] (test code = [facility] 1538) [address] POCT-GLUCOSE [id number] 18:17:00 Test Item Value Reference Range Interpretation Comments POC-GLUCOSE METER 222 mg/dL 70-110 H TESTED AT [place] [address] ([facility] [facility]) (test code = [facility] 1538) [address] COMPREHENSIVE METABOLIC [id number] 16:59:00 Test Item Value Reference Range Interpretation [...] PATIEN TS. PERIPHERAL BLOOD SMEAR - PATHOLOGIST [id number] 15:30:00 Test Item Value Reference Range Interpretation Comments RBC MORPHOLOGY Polychromasia (BEAKER) (test code = 2846) RBC MORPHOLOGY Anisocytosis (BEAKER) (test code = 42835) PERIPHERAL SMR REVIEW Cell counts confirmed (BEAKER) (test code = 2640) [id number] Josefina Lara M.D. (BEAKER) (test code = (electronic signature) 7763) PROTHROMBIN TIME/[id number] 15:12:00 Test Item Value Reference Range Interpretation [...] Negative Negative (test code = 418) POCT-GLUCOSE [id number] 12:47:00 Test Item Value Reference Range Interpretation Comments POC-GLUCOSE METER 212 mg/dL 70-110 H TESTED AT [facility] 6720 (BEAKER) (test code = [place] 1538) [address] [id number] 12:34:00 Test Item Value Reference Range Interpretation Comments RPR SCREEN (MADIE) (test code = Nonreactive Nonreactive 420) CLOSTRIDIUM DIFFICILE TOXIN [id number] 10:12:00 Test Item Value Reference Range Interpretation [...] Reference Range Change-Adult onlyNew: 60.0-150.0 Previous: 50.0-150.0POCT-GLUCOSE [id number] 06:40:00 Test Item Value Reference Range Interpretation Comments POC-GLUCOSE METER 167 mg/dL 70-110 H TESTED AT [facility] 6720 (MADIE) (test code = [place] [facility] 1538) [address] COMPREHENSIVE METABOLIC [id number] 04:08:00 Test Item Value Reference Range Interpretation [...] ESTIM ATED GFR. Specimen slightly ictericHEPATIC FUNCTION [id number] 04:06:00 Test Item Value Reference Range Interpretation [...] 1091 U/L 6-55 H 347) Specimen slightly axhtxehWXZZACJAFC5066-65-33 04:01:00 Test Item Value Reference Range Interpretation Comments FIBRINOGEN LEVEL (BEAKER) (test 379 mg/dl 225-434 code = 658) [id number] 04:01:00 Test Item Value Reference Range Interpretation Comments PARTIAL THROMBOPLASTIN TIME 40.7 seconds 22.5-36.0 H (BEAKER) (test code = 760) PROTHROMBIN TIME/[id number] 04:00:00 Test Item Value Reference Range Interpretation [...] mechanical heart valves.CBC W/PLT COUNT & AUTO [id number] 03:56:00 Test Item Value Reference Range Interpretation [...] L 0.00-0.20 (test code = 417) 0.00POCT-GLUCOSE [id number] 00:19:00 Test Item Value Reference Range Interpretation Comments POC-GLUCOSE METER 159 mg/dL 70-110 H TESTED AT [place] [address] ([facility]) (test code = [facility] 1538) [address] POCT-GLUCOSE [id number] 18:56:00 Test Item Value Reference Range Interpretation Comments POC-GLUCOSE METER 192 mg/dL 70-110 H TESTED AT [facility] 6720 ([facility]) (test code = [facility] 1538) [address] COMPREHENSIVE METABOLIC [id number] 16:55:00 Test Item Value Reference Range Interpretation [...] CALCULATE ESTIM ATED GFR. Specimen slightly ictericPROTHROMBIN [id number] 16:37:00 Test Item Value Reference Range Interpretation Comments PROTIME (BEAKER) (test code = 20.9 seconds 11.7-14.7 H 759) INR (BEAKER) (test code = 370) 1.8 <=5.9 RECOMMENDED COUMADIN/WARFARIN INR THERAPY RANGESSTANDARD DOSE: 2.0 - 3.0 Includes: PROPHYLAXIS for venous thrombosis, systemic embolization; TREATMENT for venous thrombosis and/or pulmonary embolus.HIGH RISK: Target INR is 2.5-3.5 for patients with mechanical heart valves.HEPATITIS B SURFACE [id number] 14:05:00 Test Item Value Reference Range Interpretation Comments HEPATITIS B SURFACE ANTIBODY < mIU/mL <8.0 (BEAKER) (test code = 647) HEPATITIS B CORE ANTIBODY, [id number] 13:43:00 Test Item Value Reference Range Interpretation Comments HEPATITIS B CORE TOTAL ANTIBODY Nonreactive Nonreactive (BEAKER) (test code = 497) BLOOD GAS, [id number] 13:35:00 Test Item Value Reference Range Interpretation [...] code = 1819) 28.0 % URINALYSIS W/ [id number] 13:16:00 Test Item Value Reference Range Interpretation [...] 1584) SOURCE(BEAKER) (test code = Urine, [place] 9289) VITAMIN D, 87-[id number] 13:14:00 Test Item Value Reference Range Interpretation Comments VITAMIN D 25-OH (BEAKER) (test code = < ng/mL 13.0-47.8 L 2764) ALPHA FETOPROTEIN (AFP), TUMOR [id number] 13:06:00 Test Item Value Reference Range Interpretation Comments ALPHA-FETOPROTEIN (BEAKER) (test code < ng/mL <10.0 = 1094) Effective 05/08/2014: Reference Range ChangeNew: <10.0 Previous: 0.0-8.0 HEMOGLOBIN [id number] 13:05:00 Test Item Value Reference Range Interpretation Comments HEMOGLOBIN A1C (BEAKER) (test code = 7.6 % 4.3-6.1 H 368) CARCINOEMBRYONIC ANTIGEN (CEA)2017-01-03 12:59:00 Test Item Value Reference Range Interpretation Comments CARCINOEMBRYONIC ANTIGEN (BEAKER) 2.0 ng/mL 0.0-5.0 (test code = 685) [id number] 12:59:00 Test Item Value Reference Range Interpretation Comments FERRITIN (BEAKER) (test code = 1841 ng/mL 5-275 H 361) Effective 05/08/2014: Reference Range ChangeNew: Male 5-275 Previous: Male 22- 322 Female 5-275 Female [id number] 12:58:00 Test Item Value Reference Range Interpretation Comments T4 TOTAL (BEAKER) (test code = 895) 4.5 ug/dL 4.9-11.7 L [id number] 12:58:00 Test Item Value Reference Range Interpretation Comments THYROID STIMULATING HORMONE 1.79 uIU/mL 0.35-4.94 (BEAKER) (test code = 772) [id number] 12:58:00 Test Item Value Reference Range Interpretation Comments T3 TOTAL (BEAKER) (test code = 656) 34 ng/dL 48-159 L Effective 05/08/2014: Reference Range ChangeNew: 48-159 Previous: 60-181CALCIUM, [id number] 12:47:00 Test Item Value Reference Range Interpretation Comments CALCIUM IONIZED (BEAKER) (test 1.05 mmol/L 1.12-1.27 L code = 698) PH, BLOOD (BEAKER) (test code = 7.43 1810) [id number] 12:42:00 Test Item Value Reference Range Interpretation [...] % 20-55 (test code = 2590) URIC [id number] 12:40:00 Test Item Value Reference Range Interpretation Comments URIC ACID (BEAKER) (test code = 16.0 mg/dL 2.6-7.2 H 773) Specimen slightly ictericLIPID [id number] 12:40:00 Test Item Value Reference Range Interpretation [...] 160-189 Very High >=190 Specimen slightly ictericBILIRUBIN, [id number] 12:40:00 Test Item Value Reference Range Interpretation Comments BILIRUBIN DIRECT (BEAKER) (test 2.4 mg/dL 0.1-0.5 H code = 706) GAMMA GLUTAMYL TRANSFERASE (GGT)2017-01-03 12:40:00 Test Item Value Reference Range Interpretation Comments GAMMA GLUTAMYL TRANSFERASE (MADIE) 53 U/L 9-64 (test code = 364) Specimen slightly [id number] 12:39:00 Test Item Value Reference Range Interpretation Comments ETHANOL (MADIE) (test code = 400) < mg/dL <=10 SCREEN, [id number] 12:36:00 Test Item Value Reference Range Interpretation Comments TEST URINE (MADIE) (test Negative code = 583) POCT-GLUCOSE [id number] 12:34:00 Test Item Value Reference Range Interpretation Comments POC-GLUCOSE METER 189 mg/dL 70-110 H TESTED AT [facility] 6720 (MADIE) (test code = [place] 1538) [address] HIV-1 ANTIGEN WITH HIV-1/2 [id number] 11:58:00 Test Item Value Reference Range Interpretation Comments HIV-1 ANTIGEN WITH HIV 1\\T\\2 Nonreactive Nonreactive ANTIBODY (2) (MADIE) (test code = 2586) TROPONIN [id number] 09:44:00 Test Item Value Reference Range Interpretation [...] 0.0-4.9CK-MB Reference Range:<6.7 Normal6.7-10.0 Borderline>10.0 Abnormal ACETAMINOPHEN [id number] 08:31:00 Test Item Value Reference Range Interpretation Comments ACETAMINOPHEN LEVEL (BEAKER) (test < ug/mL 10.0-30.0 L code = 344) TROPONIN [id number] 05:53:00 Test Item Value Reference Range Interpretation [...] acute neurological disease, and persistent tachyarrhythmia.BASIC METABOLIC [id number] 05:53:00 Test Item Value Reference Range Interpretation [...] TO CALCULA TE ESTIMATED GFR. Specimen slightly [id number] 05:52:00 Test Item Value Reference Range Interpretation Comments PHOSPHORUS (BEAKER) (test code = 5.7 mg/dL 2.3-4.7 H 604) HEPATIC FUNCTION [id number] 05:52:00 Test Item Value Reference Range Interpretation [...] Specimen slightly ictericCREATINE KINASE (CK), TOTAL AND [id number] 05:52:00 Test Item Value Reference Range Interpretation Comments CREATINE KINASE TOTAL (BEAKER) 341 U/L 29-200 H (test code = 380) CREATINE KINASE-MB (BEAKER) (test 5.4 ng/mL 0.0-6.6 code = 750) CREATINE KINASE-MB INDEX (BEAKER) 1.6 % (test code = 395) Effective 05/08/2014: CK-MB Reference Range ChangeNew: 0.0-6.6 Previous: 0.0-4.9CK-MB Reference Range:<6.7 Normal6.7-10.0 Borderline>10.0 Abnormal CBC W/PLT COUNT & AUTO [id number] 05:48:00 Test Item Value Reference Range Interpretation [...] K/ L 0.00-0.20 (test code = 417) 0.84KEJFCTEHQZ7877-87-05 05:09:00 Test Item Value Reference Range Interpretation Comments FIBRINOGEN LEVEL (BEAKER) (test 427 mg/dl 225-434 code = 658) [id number] 05:09:00 Test Item Value Reference Range Interpretation Comments PARTIAL THROMBOPLASTIN TIME 36.2 seconds 22.5-36.0 H (BEAKER) (test code = 760) PROTHROMBIN TIME/[id number] 05:08:00 Test Item Value Reference Range Interpretation Comments PROTIME (BEAKER) (test code = 22.8 seconds 11.7-14.7 H 759) INR (BEAKER) (test code = 370) 2.0 <=5.9 RECOMMENDED COUMADIN/WARFARIN INR THERAPY RANGESSTANDARD DOSE: 2.0 - 3.0 Includes: PROPHYLAXIS for venous thrombosis, systemic embolization; TREATMENT for venous thrombosis and/or pulmonary embolus.HIGH RISK: Target INR is 2.5-3.5 for patients with mechanical heart valves.HEPATITIS PANEL, [id number] 03:40:00 Test Item Value Reference Range Interpretation Comments HEPATITIS A IGM ANTIBODY (BEAKER) Nonreactive Nonreactive (test code = 498) HEPATITIS B CORE IGM ANTIBODY Nonreactive Nonreactive (BEAKER) (test code = 645) HEPATITIS C ANTIBODY (BEAKER) Nonreactive Nonreactive (test code = 367) HEPATITIS B SURFACE ANTIGEN (2) Nonreactive Nonreactive (BEAKER) (test code = 2585) CREATININE, RANDOM [id number] 03:18:00 Test Item Value Reference Range Interpretation Comments CREATININE URINE (BEAKER) (test 118.7 mg/dL code = 375) Reference Range: No NormalsSODIUM, RANDOM [id number] 03:18:00 Test Item Value Reference Range Interpretation Comments SODIUM URINE (BEAKER) (test code = 60 meq/L 243) Reference Range: No NormalsUREA NITROGEN, RANDOM [id number] 03:18:00 Test Item Value Reference Range Interpretation Comments UREA NITROGEN URINE (BEAKER) (test 303 mg/dL code = 538) Reference Range: No [id number] 03:07:00 Test Item Value Reference Range Interpretation Comments AMMONIA (BEAKER) (test code = 348) 48 mol/L 18-72 [id number] 02:57:00 Test Item Value Reference Range Interpretation [...] within 95-100% range. URINALYSIS W/ REFLEX URINE [id number] 02:53:00 Test Item Value Reference Range Interpretation [...] /LPF = 514) SOURCE(BEAKER) (test code = 6305) [id number] 02:49:00 Test Item Value Reference Range Interpretation Comments PARTIAL THROMBOPLASTIN TIME 39.4 seconds 22.5-36.0 H (BEAKER) (test code = 760) PROTHROMBIN TIME/[id number] 02:48:00 Test Item Value Reference Range Interpretation Comments PROTIME (BEAKER) (test code = 22.0 seconds 11.7-14.7 H 759) INR (BEAKER) (test code = 370) 1.9 <=5.9 RECOMMENDED COUMADIN/WARFARIN INR THERAPY RANGESSTANDARD DOSE: 2.0 - 3.0 Includes: PROPHYLAXIS for venous thrombosis, systemic embolization; TREATMENT for venous thrombosis and/or pulmonary embolus.HIGH RISK: Target INR is 2.5-3.5 for patients with mechanical heart valves.[id number] 02:48:00 Test Item Value Reference Range Interpretation Comments FIBRINOGEN LEVEL (BEAKER) (test 421 mg/dl 225-434 code = 658) BLOOD GAS, [id number] 02:43:00 Test Item Value Reference Range Interpretation [...] 21.0 % CBC W/PLT COUNT & AUTO [id number] 02:43:00 Test Item Value Reference Range Interpretation [...] code = 417) 0.00LACTIC ACID, VENOUS, WHOLE [id number] 02:35:00 Test Item Value Reference Range Interpretation Comments LACTATE BLOOD VENOUS (2) (BEAKER) 0.8 mmol/L 0.5-2.2 (test code = 2872) Effective 10/23/2015: Units/Reference Range ChangeNew: 0.5-2.2 mmol/L Previous: 5- 20 mg/dLSpecimen slightly [id number] 11:32:00 Test Item Value Reference Range Interpretation Comments AGAP (test code = AGAP) 14.6 10.0-20.0 [facility]IsyajgmZTJPXGXWSRFC9077-62-73 11:32:00 Test Item Value Reference Range Interpretation Comments eGFR (test code = eGFR) 33 [facility]DERIGJNBVCFR9259-32-16 11:32:00 Test Item Value Reference Range Interpretation Comments Calcium Lvl (test code = Calcium Lvl) 8.3 8.5-10.5 [facility]CsuzfjmPACEYYNWDDLX4200-11-16 11:32:00 Test Item Value Reference Range Interpretation Comments Glucose Lvl (test code = Glucose Lvl) 81 70-99 [facility] HospitalQzarhkyRUWYYVAUPJYS7369-65-11 11:32:00 Test Item Value Reference Range Interpretation Comments Creatinine Lvl (test code = Creatinine 1.95 0.50-1.40 Lvl) [facility] HospitalOwzsbzmNPHFPNENDKRW6464-14-73 11:32:00 Test Item Value Reference Range Interpretation Comments BUN (test code = BUN) 55 7-22 [facility] HospitalGtezhytHCAPAYWCQILP0582-44-53 11:32:00 Test Item Value Reference Range Interpretation Comments CO2 (test code = CO2) 19 24-32 [facility] HospitalBuulkyfNVKVDOWQSWTR3881-20-14 11:32:00 Test Item Value Reference Range Interpretation Comments Chloride Lvl (test code = Chloride Lvl) 110 95-109 [facility] HospitalFscjgboFCVLJETPTHWD0627-88-66 11:32:00 Test Item Value Reference Range Interpretation Comments Sodium Lvl (test code = Sodium Lvl) 139 135-145 [facility] HospitalMkktygnSUONYWANJJQE2335-40-91 11:32:00 Test Item Value Reference Range Interpretation Comments Potassium Lvl (test code = Potassium 4.6 3.5-5.1 Lvl) [facility] HospitalCcxyliwNOXCOWCCCC0073-78-64 11:32:00 Test Item Value Reference Range Interpretation Comments Lymphocytes (test code = Lymphocytes) 30.4 20.0-40.0 [facility] HospitalJcpvvjrVQAXURFISI2287-26-62 11:32:00 Test Item Value Reference Range Interpretation Comments Eosinophils (test code = 4.5 See_Comment [A utomated message] The Eosinophils) system which ge nerated this result tra nsmitted reference range : <=4.0. The reference r leo was not used to int erpret this result as normal/abnormal . [facility] HospitalBoscavyJTKNPPDNOM6005-71-19 11:32:00 Test Item Value Reference Range Interpretation Comments Monocytes (test code = Monocytes) 13.7 2.0-12.0 [facility] HospitalPxbwjxaCUAEXREUZC4692-54-88 11:32:00 Test Item Value Reference Range Interpretation Comments Segs-Bands # (test code = Segs-Bands #) 2.6 1.5-8.1 [facility] HospitalCtonsfmLKGIPINLRQ6660-70-08 11:32:00 Test Item Value Reference Range Interpretation Comments Basophils (test code = 0.7 See_Comment [Aut omated message] The Basophils) system which ge nerated this result tra nsmitted reference range : <=1.0. The reference r leo was not used to int erpret this result as normal/abnormal . [facility] HospitalBmyxwmpJCQBCPGVJA6281-22-07 11:32:00 Test Item Value Reference Range Interpretation Comments Monocytes # (test code 0.7 See_Comment [Aut omated message] The = Monocytes #) system which generated this result tra nsmitted reference range : <=0.8. The reference r leo was not used to int erpret this result as normal/abnormal . [facility] HospitalReydxkwTYNFEBRJUL6216-20-49 11:32:00 Test Item Value Reference Range Interpretation Comments Lymphocytes # (test code = Lymphocytes 1.6 1.0-5.5 #) [facility] HospitalEplugkhJBNFJFQHCP7395-74-42 11:32:00 Test Item Value Reference Range Interpretation Comments Eosinophils # (test code 0.2 See_Comment [A utomated message] The = Eosinophils #) system whic h generated this result tra nsmitted reference range : <=0.5. The reference r leo was not used to int erpret this result as normal/abnormal . [facility] HospitalHmcinvtTGVMTRKWWC8872-25-77 11:32:00 Test Item Value Reference Range Interpretation Comments Segs (test code = Segs) 50.7 45.0-75.0 [facility] HospitalKiyaxlxLZQOUWFMHG1429-91-27 11:32:00 Test Item Value Reference Range Interpretation [...] iron deficiency anemia, and renal disease. CPT: 28390 [facility] HospitalCbzhvetMYXQIXUZVX1697-03-61 11:32:00 Test Item Value Reference Range Interpretation Comments Hct (test code = Hct) 28.1 36.0-48.0 [facility] HospitalVbjtsepADQPMBHECR7466-99-83 11:32:00 Test Item Value Reference Range Interpretation Comments RBC (test code = RBC) 3.39 4.20-5.40 [facility] HospitalMtmfngpPYPFEEONLE0983-44-08 11:32:00 Test Item Value Reference Range Interpretation Comments Hgb (test code = Hgb) 8.9 12.0-16.0 [facility] HospitalTioxvxyHKODZGWKVS4205-38-40 11:32:00 Test Item Value Reference Range Interpretation Comments WBC (test code = WBC) 5.1 3.7-10.4 [facility] HospitalWtqmiodCWKMSQCQCL9114-20-08 11:32:00 Test Item Value Reference Range Interpretation Comments MPV (test code = MPV) 11.3 7.4-10.4 [facility] HospitalSlsqslwKHCZDLAKXT9615-19-38 11:32:00 Test Item Value Reference Range Interpretation Comments Platelet (test code = Platelet) 118 133-450 [facility] HospitalIdryjsdIHZDHUAPMP8729-11-07 11:32:00 Test Item Value Reference Range Interpretation Comments MCHC (test code = MCHC) 31.8 32.0-36.0 [facility] HospitalWizqshzODIIBDJJYN0792-74-96 11:32:00 Test Item Value Reference Range Interpretation Comments RDW (test code = RDW) 18.0 11.5-14.5 [facility] HospitalIcppudrPPYFDVADBB8869-45-91 11:32:00 Test Item Value Reference Range Interpretation Comments MCV (test code = MCV) 83.0 80.0-98.0 [facility] HospitalCygrsypGSGPPSQMWD6197-36-14 11:32:00 Test Item Value Reference Range Interpretation Comments MCH (test code = MCH) 26.4 pg 27.0-31.0 [facility] AllianceDkxiiqsYQSSFAQKFQ4944-62-22 11:32:00 Test Item Value Reference Range Interpretation Comments C3 Complement (test code = C3 137 88-201 Complement) [facility] AllianceZrrlicaYPVXXZHOSB6275-15-90 11:32:00 Test Item Value Reference Range Interpretation Comments HIV. (test code = Negative *NA*(07/30/16 HIV.) 5:32 AM) [facility] HospitalFurnvhtMKRVYELESF7114-93-00 11:05:00 Test Item Value Reference Range Interpretation [...] iron deficiency anemia, and renal disease. CPT: 84736 [facility] AllianceLmeynnnOVLOCZGKPQ7811-47-47 11:05:00 Test Item Value Reference Range Interpretation Comments HIV. (test code = Negative *NA*(07/29/16 HIV.) 5:05 AM) [facility] AllianceKneakwdWAASHAHPAQ3252-27-33 11:05:00 Test Item Value Reference Range Interpretation Comments C3 Complement (test code = C3 92 88-201 Complement) [facility]2017-02-07 15:50:00 Test Item Value Reference Range Interpretation Comments eGFR (test code = eGFR) 25 [facility]2017-02-07 15:50:00 Test Item Value Reference Range Interpretation Comments BUN (test code = BUN) 55 7-22 [facility]2017-02-07 15:50:00 Test Item Value Reference Range Interpretation Comments CO2 (test code = CO2) 23 24-32 [facility]2017-02-07 15:50:00 Test Item Value Reference Range Interpretation Comments Chloride Lvl (test code = Chloride Lvl) 109 95-109 [facility]2017-02-07 15:50:00 Test Item Value Reference Range Interpretation Comments Glucose Lvl (test code = Glucose Lvl) 101 70-99 [facility]2017-02-07 15:50:00 Test Item Value Reference Range Interpretation Comments Potassium Lvl (test code = Potassium 4.0 3.5-5.1 Lvl) [facility]2017-02-07 15:50:00 Test Item Value Reference Range Interpretation Comments Sodium Lvl (test code = Sodium Lvl) 141 135-145 [facility]2017-02-07 15:50:00 Test Item Value Reference Range Interpretation Comments AGAP (test code = AGAP) 13.0 10.0-20.0 [facility]2017-02-07 15:50:00 Test Item Value Reference Range Interpretation Comments Calcium Lvl (test code = Calcium Lvl) 7.7 8.5-10.5 [facility]2017-02-07 15:50:00 Test Item Value Reference Range Interpretation Comments Creatinine Lvl (test code = Creatinine 2.49 0.50-1.40 Lvl) [facility] HospitalRbonvrtANKERSFQIY0471-73-17 15:50:00 Test Item Value Reference Range Interpretation Comments PT (test code = PT) 14.8 s 12.0-14.7 [facility] HospitalXeqrnhgQALWDETXXG7316-85-60 15:50:00 Test Item Value Reference Range Interpretation Comments PTT (test code = PTT) 40.8 s 22.9-35.8 [facility] HospitalMwewdicUOCCITVVRH7173-32-27 15:50:00 Test Item Value Reference Range Interpretation Comments INR (test code = INR) 1.14 0.85-1.17 [facility]CrmgsqgYWEACAZKAK6787-75-25 15:50:00 Test Item Value Reference Range Interpretation Comments C3 Complement (test code = C3 94 88-201 Complement) [facility] HospitalJzzxyowMJNOOEFDZB5462-94-96 10:35:00 Test Item Value Reference Range Interpretation Comments Lymphocytes # (test code = Lymphocytes 1.7 1.0-5.5 #) [facility] HospitalItsvstkMHPLGTJAOE2624-51-12 10:35:00 Test Item Value Reference Range Interpretation Comments Segs-Bands # (test code = Segs-Bands #) 2.7 1.5-8.1 [facility] HospitalBcpdcpyGJGYJSBNSZ2502-41-74 10:35:00 Test Item Value Reference Range Interpretation Comments Eosinophils # (test code 0.1 See_Comment [A utomated message] The = Eosinophils #) system whic h generated this result tra nsmitted reference range : <=0.5. The reference r leo was not used to int erpret this result as normal/abnormal . [facility] HospitalYiaxpktTQDUZPPLJZ3663-57-16 10:35:00 Test Item Value Reference Range Interpretation Comments Monocytes # (test code 0.7 See_Comment [Aut omated message] The = Monocytes #) system which generated this result tra nsmitted reference range : <=0.8. The reference r leo was not used to int erpret this result as normal/abnormal . [facility] HospitalYohpwoyCUWNIBBYRN7380-91-53 10:35:00 Test Item Value Reference Range Interpretation Comments Segs (test code = Segs) 51.3 45.0-75.0 [facility] HospitalVemqtbmMCCYDLGLKU4658-82-69 10:35:00 Test Item Value Reference Range Interpretation Comments Lymphocytes (test code = Lymphocytes) 31.6 20.0-40.0 [facility] HospitalVibbochSCNWHCEUTO8917-31-64 10:35:00 Test Item Value Reference Range Interpretation Comments Monocytes (test code = Monocytes) 14.1 2.0-12.0 [facility] HospitalWeybgjhSPSAHERRXS3742-31-84 10:35:00 Test Item Value Reference Range Interpretation Comments Eosinophils (test code = 2.6 See_Comment [A utomated message] The Eosinophils) system which ge nerated this result tra nsmitted reference range : <=4.0. The reference r leo was not used to int erpret this result as normal/abnormal . [facility] HospitalMooxdhkHAPCZMXUUX6799-47-26 10:35:00 Test Item Value Reference Range Interpretation Comments Basophils (test code = 0.4 See_Comment [Aut omated message] The Basophils) system which ge nerated this result tra nsmitted reference range : <=1.0. The reference r leo was not used to int erpret this result as normal/abnormal . [facility] HospitalViygrrzCZKJSCVPDN6734-26-50 10:35:00 Test Item Value Reference Range Interpretation Comments PB Smear Path Peripheral blood smear shows (test code = PB hypochromic normocytic Smear Path) anemia with anisopoikilocytsosis, no increase in schistocytes, slight polychromasia, a few estella cells, moderate thrombocytopenia. Impression: (1) no evidence of microangiopathic hemolysis, (2) RBC morphology is suggestive of anemia of chronic disease or iron deficiency anemia, and renal disease. CPT: 17765 [facility] HospitalDvmoojpPBNLVLUARZ2357-37-66 10:35:00 Test Item Value Reference Range Interpretation Comments Hct (test code = Hct) 29.3 36.0-48.0 [facility] HospitalLezcjvdVUCATEDOMY7116-00-00 10:35:00 Test Item Value Reference Range Interpretation Comments Hgb (test code = Hgb) 9.2 12.0-16.0 [facility] HospitalDuhwiblJSZKJKQJAE9843-88-31 10:35:00 Test Item Value Reference Range Interpretation Comments RBC (test code = RBC) 3.54 4.20-5.40 [facility] HospitalLpejvokEZXLRPGBJH8835-75-64 10:35:00 Test Item Value Reference Range Interpretation Comments WBC (test code = WBC) 5.3 3.7-10.4 [facility] HospitalAfzxqafCFVUMEQJBD1894-59-26 10:35:00 Test Item Value Reference Range Interpretation Comments Platelet (test code = Platelet) 87 133-450 [facility] KnqodvvNOUCJZLWZX3719-59-07 10:35:00 Test Item Value Reference Range Interpretation Comments MCHC (test code = MCHC) 31.4 32.0-36.0 [facility] KzihabmNHQCJENMKX2612-83-82 10:35:00 Test Item Value Reference Range Interpretation Comments RDW (test code = RDW) 17.9 11.5-14.5 [facility] JhewbrlHXVEEDKFNQ7025-50-76 10:35:00 Test Item Value Reference Range Interpretation Comments MPV (test code = MPV) 10.9 7.4-10.4 [facility]landRtzkbsyQZRYOKTRCH0241-56-01 10:35:00 Test Item Value Reference Range Interpretation Comments MCH (test code = MCH) 26.0 pg 27.0-31.0 [facility]DLMUBCUSRV2586-[facility] 10:35:00 Test Item Value Reference Range Interpretation Comments MCV (test code = MCV) 82.8 80.0-98.0 [facility]aleQxxsxjrHURLTKATOX9242-80-38 10:35:00 Test Item Value Reference Range Interpretation Comments HIV. (test code = Negative *NA*(07/28/16 HIV.) 4:35 AM) [facility]aleCARDIAC [id number] 10:22:00 Test Item Value Reference Range Interpretation Comments Total CK (test code = Total CK) 190 12-191 [facility]aleCHEM [id number] 10:22:00 Test Item Value Reference Range Interpretation Comments Calcium Lvl (test code = Calcium Lvl) 7.8 8.5-10.5 [facility]annCHEM [id number] 10:22:00 Test Item Value Reference Range Interpretation Comments CO2 (test code = CO2) 21 24-32 [facility]annCHEM [id number] 10:22:00 Test Item Value Reference Range Interpretation Comments Sodium Lvl (test code = Sodium Lvl) 140 135-145 [facility]aleCHE[facility] [id number] 10:22:00 Test Item Value Reference Range Interpretation Comments Potassium Lvl (test code = Potassium 3.8 3.5-5.1 Lvl) [facility]annCHEM [id number] 10:22:00 Test Item Value Reference Range Interpretation Comments Chloride Lvl (test code = Chloride Lvl) 106 95-109 [facility]2017-02-06 10:22:00 Test Item Value Reference Range Interpretation Comments Bili Total (test code = Bili Total) 0.4 0.2-1.3 [facility]2017-02-06 10:22:00 Test Item Value Reference Range Interpretation Comments Alk Phos (test code = Alk Phos) 74 39-136 [facility]2017-02-06 10:22:00 Test Item Value Reference Range Interpretation Comments eGFR (test code = eGFR) 19 [facility]2017-02-06 10:22:00 Test Item Value Reference Range Interpretation Comments Total Protein (test code = Total 5.2 6.4-8.4 Protein) [facility]2017-02-06 10:22:00 Test Item Value Reference Range Interpretation Comments ALT (test code = ALT) 822 See_Comment [Auto mated message] The system which ge nerated this result transmit rohit reference range : <=65. The reference range was not used to interpr et this result as reji l/abnormal. [facility]2017-02-06 10:22:00 Test Item Value Reference Range Interpretation Comments AST (test code = AST) 205 See_Comment [Auto mated message] The system which ge nerated this result transmit rohit reference range : <=37. The reference range was not used to interpr et this result as reji l/abnormal. [facility]2017-02-06 10:22:00 Test Item Value Reference Range Interpretation Comments Albumin Lvl (test code = Albumin Lvl) 1.8 3.5-5.0 [facility]2017-02-06 10:22:00 Test Item Value Reference Range Interpretation Comments BUN (test code = BUN) 54 7-22 [facility]2017-02-06 10:22:00 Test Item Value Reference Range Interpretation Comments Glucose Lvl (test code = Glucose Lvl) 143 70-99 [facility]2017-02-06 10:22:00 Test Item Value Reference Range Interpretation Comments Creatinine Lvl (test code = Creatinine 3.11 0.50-1.40 Lvl) [facility]2017-02-06 10:22:00 Test Item Value Reference Range Interpretation Comments B/C Ratio (test code = B/C Ratio) 17 6-25 [facility]2017-02-06 10:22:00 Test Item Value Reference Range Interpretation Comments AGAP (test code = AGAP) 16.8 10.0-20.0 [facility]2017-02-06 10:22:00 Test Item Value Reference Range Interpretation Comments Globulin (test code = Globulin) 3.4 2.7-4.2 [facility]2017-02-06 10:22:00 Test Item Value Reference Range Interpretation Comments A/G Ratio (test code = A/G Ratio) 0.5 0.7-1.6 [facility]2017-02-06 10:22:00 Test Item Value Reference Range Interpretation Comments Magnesium Lvl (test code = Magnesium 2.0 1.8-2.4 Lvl) [facility]2017-02-06 10:22:00 Test Item Value Reference Range Interpretation Comments Phosphorus (test code = Phosphorus) 3.7 2.5-4.5 [facility] HospitalYmsbekcKNGUMJVATZ7779-90-45 10:22:00 Test Item Value Reference Range Interpretation Comments RDW (test code = RDW) 17.7 11.5-14.5 [facility] HospitalIdtroyxKPCIZVIXFQ4630-56-92 10:22:00 Test Item Value Reference Range Interpretation Comments MCHC (test code = MCHC) 32.9 32.0-36.0 [facility] HospitalCktuxfeNLYIUJUWAB4750-27-96 10:22:00 Test Item Value Reference Range Interpretation Comments Hct (test code = Hct) 25.4 36.0-48.0 [facility] HospitalVwqnojxKSPQAHJYBR3194-56-29 10:22:00 Test Item Value Reference Range Interpretation Comments MCH (test code = MCH) 26.4 pg 27.0-31.0 [facility] HospitalXwjcnlpTPEXELBYYM1668-59-22 10:22:00 Test Item Value Reference Range Interpretation Comments MCV (test code = MCV) 80.3 80.0-98.0 [facility] HospitalJaywpreQPYUHACWGA4037-05-33 10:22:00 Test Item Value Reference Range Interpretation Comments MPV (test code = MPV) 11.4 7.4-10.4 [facility] HospitalOvytrlwHHRWYPHMDY8952-66-02 10:22:00 Test Item Value Reference Range Interpretation Comments Platelet (test code = Platelet) 74 133-450 [facility] HospitalXqhaqmmJEGOPBXGRC0606-57-49 10:22:00 Test Item Value Reference Range Interpretation Comments RBC (test code = RBC) 3.16 4.20-5.40 [facility] HospitalWixqocoAPYBHXBMMQ7869-99-84 10:22:00 Test Item Value Reference Range Interpretation Comments WBC (test code = WBC) 5.3 3.7-10.4 [facility] HospitalUrwhierSEWUBUUZKZ7748-96-63 10:22:00 Test Item Value Reference Range Interpretation Comments Hgb (test code = Hgb) 8.4 12.0-16.0 [facility] HospitalJgxyrnmGPCHCDPUKT0436-04-61 10:22:00 Test Item Value Reference Range Interpretation Comments Monocytes (test code = Monocytes) 14.5 2.0-12.0 [facility] HospitalOkqvpvaKXRCXCNLEB0468-53-12 10:22:00 Test Item Value Reference Range Interpretation Comments Lymphocytes (test code = Lymphocytes) 29.8 20.0-40.0 [facility] HospitalDesktrnXIDFPRTGHB1307-76-91 10:22:00 Test Item Value Reference Range Interpretation Comments Eosinophils # (test code 0.1 See_Comment [A utomated message] The = Eosinophils #) system whic h generated this result tra nsmitted reference range : <=0.5. The reference r leo was not used to int erpret this result as normal/abnormal . [facility] HospitalKsdidezDWKPZSAZUH0357-76-60 10:22:00 Test Item Value Reference Range Interpretation Comments Monocytes # (test code 0.8 See_Comment [Aut omated message] The = Monocytes #) system which generated this result tra nsmitted reference range : <=0.8. The reference r leo was not used to int erpret this result as normal/abnormal . [facility] HospitalTxpqqhtHROPVDOXWO0250-76-39 10:22:00 Test Item Value Reference Range Interpretation Comments Segs-Bands # (test code = Segs-Bands #) 2.9 1.5-8.1 [facility] HospitalUtddnzoNXHMKSCQWI2443-16-11 10:22:00 Test Item Value Reference Range Interpretation Comments Lymphocytes # (test code = Lymphocytes 1.6 1.0-5.5 #) [facility] HospitalSumnfxfIBHIIBORZY8908-19-65 10:22:00 Test Item Value Reference Range Interpretation Comments Basophils (test code = 0.4 See_Comment [Aut omated message] The Basophils) system which ge nerated this result tra nsmitted reference range : <=1.0. The reference r leo was not used to int erpret this result as normal/abnormal . [facility]SxmaikmDSHYOAVIHU2219-61-09 10:22:00 Test Item Value Reference Range Interpretation Comments Eosinophils (test code = 1.2 See_Comment [A utomated message] The Eosinophils) system which ge nerated this result tra nsmitted reference range : <=4.0. The reference r leo was not used to int erpret this result as normal/abnormal . [facility]aleVxzxtmoEUXDDAJEDX4933-05-81 10:22:00 Test Item Value Reference Range Interpretation Comments Segs (test code = Segs) 54.1 45.0-75.0 [facility]aleSPECIAL RFCNGGFLA9405-88-78 10:22:00 Test Item Value Reference Range Interpretation Comments Hgb A1C (test code = Hgb A1C) 8.9 [facility]aleCARDIAC [id number] 17:40:00 Test Item Value Reference Range Interpretation Comments Total CK (test code = Total CK) 344 12-191 [facility]landQidhhhyOWKTFAGTEI9686-14-01 17:40:00 Test Item Value Reference Range Interpretation Comments IVETTE (test code = IVETTE) Positive *ABN*(07/26/16 11:40 AM) [facility]aleQbvqjlqJECGEGNCNE9443-99-63 17:40:00 Test Item Value Reference Range Interpretation Comments SHIPMASTER Ab (test code = SHIPMASTER Ab) no [facility]NznieveJHNZMQVMTI8108-60-40 17:40:00 Test Item Value Reference Range Interpretation Comments Sm Ab (test code = Sm Ab) no [facility] HospitalLzyszgqTEJMLKJIQB1852-85-09 17:40:00 Test Item Value Reference Range Interpretation Comments IVETTE Interp (test code Pattern appears = IVETTE Interp) Nucleolar. [facility]landJhmsxfsHNOQJVKAEZ5967-30-31 17:40:00 Test Item Value Reference Range Interpretation Comments SS-B (La) Ab (test code = SS-B (La) Ab) no [facility] HospitalEuttqtkOPYNUBDQYB5498-45-19 17:40:00 Test Item Value Reference Range Interpretation Comments SS-A (Ro) Ab (test code = SS-A (Ro) Ab) no [facility] HospitalKuwhsdkDXTZADHPME8014-39-62 17:40:00 Test Item Value Reference Range Interpretation Comments DNA Ab (DS) (test Negative (07/26/16 11:40 code = DNA Ab (DS)) AM) [facility]landPkrtxdlPXZNVLYCUG6789-88-89 17:40:00 Test Item Value Reference Range Interpretation Comments IVETTE Titer (test code = 1:40 *ABN*(07/26/16 IVETTE Titer) 11:40 AM) [facility] [id number] 17:40:00 Test Item Value Reference Range Interpretation Comments U Sodium (test code = U Sodium) 21 [facility]aleFhbslvaOKDFWHLURD9000-77-26 14:00:00 Test Item Value Reference Range Interpretation Comments INR (test code = INR) 1.11 0.85-1.17 [facility]valeJlkkwxxUOHHBNJMSC8709-38-96 14:00:00 Test Item Value Reference Range Interpretation Comments PT (test code = PT) 14.5 s 12.0-14.7 [facility]valeXzisrsmILTCITYCBH4105-56-93 14:00:00 Test Item Value Reference Range Interpretation Comments Hep A IgM (test code Negative *NA*(07/26/16 = Hep A IgM) 8:00 AM) [facility]landGeesmpvPXTZUJXVWG4382-97-25 14:00:00 Test Item Value Reference Range Interpretation Comments Hep B Core IgM (test Negative *NA*(07/26/16 code = Hep B Core 8:00 AM) IgM) [facility]aleXskbqbtBSWAIFXNBJ2264-52-98 14:00:00 Test Item Value Reference Range Interpretation Comments Hep C Ab (test code = Negative *NA*(07/26/16 Hep C Ab) 8:00 AM) [facility]landOfskqvbBSTMXKXUCV2485-65-31 14:00:00 Test Item Value Reference Range Interpretation Comments Hep Bs Ag (test code Negative *NA*(07/26/16 = Hep Bs Ag) 8:00 AM) [facility]aleCHEM [id number] 10:42:00 Test Item Value Reference Range Interpretation Comments B/C Ratio (test code = B/C Ratio) 17 12-13 [facility]aleCHEM [id number] 10:42:00 Test Item Value Reference Range Interpretation Comments ALT (test code = ALT) 1232 See_Comment [Auto mated message] The system which ge nerated this result transmit rohit reference range : <=65. The reference range was not used to interpr et this result as reji l/abnormal. [facility]2017-02-05 10:42:00 Test Item Value Reference Range Interpretation Comments A/G Ratio (test code = A/G Ratio) 0.5 0.7-1.6 [facility]2017-02-05 10:42:00 Test Item Value Reference Range Interpretation Comments Bili Total (test code = Bili Total) 0.3 0.2-1.3 [facility]2017-02-05 10:42:00 Test Item Value Reference Range Interpretation Comments Alk Phos (test code = Alk Phos) 79 39-136 [facility]2017-02-05 10:42:00 Test Item Value Reference Range Interpretation Comments AST (test code = AST) 586 See_Comment [Auto mated message] The system which ge nerated this result transmit rohit reference range : <=37. The reference range was not used to interpr et this result as reji l/abnormal. [facility]2017-02-05 10:42:00 Test Item Value Reference Range Interpretation Comments Total Protein (test code = Total 5.5 6.4-8.4 Protein) [facility]2017-02-05 10:42:00 Test Item Value Reference Range Interpretation Comments Globulin (test code = Globulin) 3.7 2.7-4.2 [facility]2017-02-05 10:42:00 Test Item Value Reference Range Interpretation Comments Albumin Lvl (test code = Albumin Lvl) 1.8 3.5-5.0 [facility]2017-02-05 10:42:00 Test Item Value Reference Range Interpretation Comments Magnesium Lvl (test code = Magnesium 2.1 1.8-2.4 Lvl) [facility] HospitalHtwwfrkESISTYEAYQ5020-93-28 10:42:00 Test Item Value Reference Range Interpretation Comments Acanthocyte (test code = Acanthocyte) Slight [facility] HospitalDhmoiyfUJYDVCVOOZ7486-83-08 10:42:00 Test Item Value Reference Range Interpretation Comments Rouleaux (test code = Present *ABN*(07/26/16 Rouleaux) 4:42 AM) [facility] HospitalPkbharcTZNZKTOYUV4302-10-52 10:42:00 Test Item Value Reference Range Interpretation Comments Anisocyte (test code = 1+ *ABN*(07/26/16 4:42 Anisocyte) AM) [facility]aleHljzmqoYETPPWYCHZ4598-05-33 10:42:00 Test Item Value Reference Range Interpretation Comments Basophils # (test code 0.1 See_Comment [Aut omated message] The = Basophils #) system which generated this result tra nsmitted reference range : <=0.2. The reference r leo was not used to int erpret this result as normal/abnormal . [facility]valeTtluhtrUXMBDSNRLR5801-32-03 10:42:00 Test Item Value Reference Range Interpretation Comments Large Plt (test code Moderate *ABN*(07/26/16 = Large Plt) 4:42 AM) [facility]aleIxduwxpBRQQXPQNYN8926-32-03 10:42:00 Test Item Value Reference Range Interpretation Comments C4 Complement (test code = C4 42 16-47 Complement) [facility] AND [id number] 16:34:00 Test Item Value Reference Range Interpretation Comments UA Sq Epi (test code = UA Sq Epi) None Seen [facility] AND [id number] 16:34:00 Test Item Value Reference Range Interpretation Comments UA Waxy Cast (test code = UA Waxy Cast) 1 [facility] AND [id number] 16:34:00 Test Item Value Reference Range Interpretation Comments UA Hyal Cast (test 4 See_Comment [Automat ed message] The code = UA Hyal Cast) system which generated this result transmit rohit reference range : <=2. The reference range was not used to interpr et this result as reji l/abnormal. [facility] AND [id number] 16:34:00 Test Item Value Reference Range Interpretation Comments UA Bacteria (test code = UA Occasional /HPF Bacteria) [facility] AND [id number] 16:34:00 Test Item Value Reference Range Interpretation Comments UA Mucus (test code = UA Mucus) Few /LPF [facility] AND [id number] 16:34:00 Test Item Value Reference Range Interpretation Comments UA Amorph Destiny (test code = Occasional /HPF UA Amorph Destiny) [facility] AND [id number] 16:34:00 Test Item Value Reference Range Interpretation Comments UA Leuk Est (test Negative (07/25/16 10:34 code = UA Leuk Est) AM) [facility] AND [id number] 16:34:00 Test Item Value Reference Range Interpretation Comments UA Nitrite (test code Negative (07/25/16 10:34 = UA Nitrite) AM) [facility] AND [id number] 16:34:00 Test Item Value Reference Range Interpretation Comments UA RBC (test code = 2 See_Comment [Automa rohit message] The UA RBC) system which ge nerated this result transmit rohit reference range : <=2. The reference range was not used to interpr et this result as reji l/abnormal. [facility] AND [id number] 16:34:00 Test Item Value Reference Range Interpretation Comments UA WBC (test code = 6 See_Comment [Automa rohit message] The UA WBC) system which ge nerated this result transmit rohit reference range : <=5. The reference range was not used to interpr et this result as reji l/abnormal. [facility] AND [id number] 16:34:00 Test Item Value Reference Range Interpretation Comments UA Urobilinogen (test code = UA 2.0 0.1-1.0 Urobilinogen) [facility] AND [id number] 16:34:00 Test Item Value Reference Range Interpretation Comments UA Ketones (test code = UA Negative mg/dL Ketones) [facility] AND [id number] 16:34:00 Test Item Value Reference Range Interpretation Comments UA Glucose (test code = UA Glucose) 70 mg/dL [facility] AND [id number] 16:34:00 Test Item Value Reference Range Interpretation Comments UA Blood (test code = Negative (07/25/16 10:34 UA Blood) AM) [facility] AND [id number] 16:34:00 Test Item Value Reference Range Interpretation Comments UA Bili (test code = Negative *NA*(07/25/16 UA Bili) 10:34 AM) [facility] AND [id number] 16:34:00 Test Item Value Reference Range Interpretation Comments UA Protein (test code = UA >=300 mg/dL Protein) [facility] AND [id number] 16:34:00 Test Item Value Reference Range Interpretation Comments UA Spec Grav (test code = UA Spec Grav) 1.012 [facility] AND [id number] 16:34:00 Test Item Value Reference Range Interpretation Comments UA pH (test code = UA pH) 5.5 5.0-8.0 [facility] AND [id number] 16:34:00 Test Item Value Reference Range Interpretation Comments UA Turbidity (test code Slight *ABN*(07/25/16 = UA Turbidity) 10:34 AM) [facility] AND [id number] 16:34:00 Test Item Value Reference Range Interpretation Comments UA Color (test code = Dark Yellow *NA*(07/25/16 UA Color) 10:34 AM) [facility] AND [id number] 16:34:00 Test Item Value Reference Range Interpretation Comments UA Gran Cast (test code = UA Gran Cast) 9 [facility] [id number] 16:34:00 Test Item Value Reference Range Interpretation Comments U Sodium (test code = U Sodium) 30 [facility] [id number] 16:34:00 Test Item Value Reference Range Interpretation Comments U Prot/Creat (test code = U Prot/Creat) 3.1 [facility] [id number] 16:34:00 Test Item Value Reference Range Interpretation Comments U Protein (test code = U Protein) 420.9 [facility] [id number] 16:34:00 Test Item Value Reference Range Interpretation Comments U Creatinine (test code = U 136.00 Creatinine) [facility]landGoSave [id number] 08:55:00 Test Item Value Reference Range Interpretation Comments Magnesium Lvl (test code = Magnesium 2.0 1.8-2.4 Lvl) [facility]21GRAMSCHEM HABBO2401-14-03 08:55:00 Test Item Value Reference Range Interpretation Comments Phosphorus (test code = Phosphorus) 5.2 2.5-4.5 [facility]21GRAMSCARMinteosAC [id number] 17:29:00 Test Item Value Reference Range Interpretation Comments Troponin-I (test code 0.28 See_Comment [Auto mated message] The = Troponin-I) system which g enerated this result transmit rohit reference range : <=0.40. The reference r leo was not used to interpr et this result as reji l/abnormal. [facility] [email or web address] [id number] 17:29:00 Test Item Value Reference Range Interpretation Comments Total CK (test code = Total CK) 2616 12-191 [facility] MainlandnaeemSeldar PharmaLAURA [id number] 17:29:00 Test Item Value Reference Range Interpretation Comments Troponin-T (test code 0.144 See_Comment [Auto mated message] The = Troponin-T) system which g enerated this result transmit rohit reference range : <=0.100. The reference r leo was not used to interpr et this result as reji l/abnormal. [facility] MainlandnaeemiLink [id number] 17:29:00 Test Item Value Reference Range Interpretation Comments CK MB Index (test 0.2 See_Comment [Automate d message] The code = CK MB Index) system w [facility] generated this result transmit rohit reference range : <=2.5. The reference range was not used to interpr et this result as reji l/abnormal. [facility] MainlandnaeemiLink [id number] 17:29:00 Test Item Value Reference Range Interpretation Comments CK MB (test code = CK MB) 6.3 0.5-3.6 [facility] [id number] 11:20:00 Test Item Value Reference Range Interpretation Comments Troponin-I (test code 0.38 See_Comment [Auto mated message] The = Troponin-I) system which g enerated this result transmit rohit reference range : <=0.40. The reference r leo was not used to interpr et this result as reji l/abnormal. [facility] MainlandOmicia2017-02-03 11:20:00 Test Item Value Reference Range Interpretation Comments Troponin-T (test code 0.173 See_Comment [Auto mated message] The = Troponin-T) system which g enerated this result transmit rohit reference range : <=0.100. The reference r leo was not used to interpr et this result as reji l/abnormal. [facility]landOmicia2017-02-03 11:20:00 Test Item Value Reference Range Interpretation Comments CK MB Index (test 0.2 See_Comment [Automate d message] The code = CK MB Index) system w [facility] generated this result transmit rohit reference range : <=2.5. The reference range was not used to interpr et this result as reji l/abnormal. [facility] [employer] [id number] 11:20:00 Test Item Value Reference Range Interpretation Comments CK MB (test code = CK MB) 5.6 0.5-3.6 [facility] [employer] [id number] 11:20:00 Test Item Value Reference Range Interpretation Comments Phosphorus (test code = Phosphorus) 5.5 2.5-4.5 [facility] [employer] [id number] 06:18:00 Test Item Value Reference Range Interpretation Comments BNP (test code = BNP) 701 [facility] W[employer]AC [id number] 04:59:27 Test Item Value Reference Range Interpretation Comments Troponin-I (test code 0.57 See_Comment [Auto mated message] The = Troponin-I) system which g enerated this result transmit rohit reference range : <=0.40. The reference r leo was not used to interpr et this result as reji l/abnormal. [facility] [employer] [id number] 10:22:00 Test Item Value Reference Range Interpretation Comments BNP (test code = BNP) 526 [facility] [id number] 10:22:00 Test Item Value Reference Range Interpretation Comments Magnesium Lvl (test code = Magnesium 2.1 1.8-2.4 Lvl) [facility] [id number] 10:22:00 Test Item Value Reference Range Interpretation Comments Glucose Lvl (test code = Glucose Lvl) 117 70-99 [facility] [id number] 10:22:00 Test Item Value Reference Range Interpretation Comments BUN (test code = BUN) 41 7-22 [facility] [id number] 10:22:00 Test Item Value Reference Range Interpretation Comments Creatinine Lvl (test code = Creatinine 2.00 0.50-1.40 Lvl) [facility] [id number] 10:22:00 Test Item Value Reference Range Interpretation Comments Calcium Lvl (test code = Calcium Lvl) 9.0 8.5-10.5 [facility] [id number] 10:22:00 Test Item Value Reference Range Interpretation Comments Chloride Lvl (test code = Chloride Lvl) 102 95-109 [facility] [id number] 10:22:00 Test Item Value Reference Range Interpretation Comments CO2 (test code = CO2) 33 24-32 [facility]2016-12-26 10:22:00 Test Item Value Reference Range Interpretation Comments Sodium Lvl (test code = Sodium Lvl) 144 135-145 [facility]2016-12-26 10:22:00 Test Item Value Reference Range Interpretation Comments Potassium Lvl (test code = Potassium 4.0 3.5-5.1 Lvl) [facility]2016-12-26 10:22:00 Test Item Value Reference Range Interpretation Comments eGFR (test code = eGFR) 32 [facility]2016-12-26 10:22:00 Test Item Value Reference Range Interpretation Comments AGAP (test code = AGAP) 13.0 10.0-20.0 [facility]2016-12-26 10:22:00 Test Item Value Reference Range Interpretation Comments Phosphorus (test code = Phosphorus) 4.6 2.5-4.5 [facility]JxxgvkqBWBPNXAQCF5392-32-22 10:22:00 Test Item Value Reference Range Interpretation Comments RBC (test code = RBC) 3.68 4.20-5.40 [facility] HospitalFweymzjHLZURXJJVO3184-66-44 10:22:00 Test Item Value Reference Range Interpretation Comments Hgb (test code = Hgb) 9.9 12.0-16.0 [facility] HospitalNruzmdgOFYOYOBYGQ7646-86-34 10:22:00 Test Item Value Reference Range Interpretation Comments MCH (test code = MCH) 26.8 pg 27.0-31.0 [facility] HospitalRelgcerEIUBCDESBY9625-10-54 10:22:00 Test Item Value Reference Range Interpretation Comments MCHC (test code = MCHC) 34.2 32.0-36.0 [facility] HospitalUegkeqoGCNMXWZZAW2212-46-44 10:22:00 Test Item Value Reference Range Interpretation Comments MCV (test code = MCV) 78.3 80.0-98.0 [facility] HospitalLivorddAVPPDZVVFD5652-27-24 10:22:00 Test Item Value Reference Range Interpretation Comments Hct (test code = Hct) 28.8 36.0-48.0 [facility] HospitalDabxouxXCTCGGYRCK6118-22-01 10:22:00 Test Item Value Reference Range Interpretation Comments Platelet (test code = Platelet) 191 133-450 [facility] HospitalOqcndfxSONVNWFXFK9837-39-80 10:22:00 Test Item Value Reference Range Interpretation Comments MPV (test code = MPV) 9.5 7.4-10.4 [facility] HospitalCartxgwVKCMCGYJKH7063-60-50 10:22:00 Test Item Value Reference Range Interpretation Comments RDW (test code = RDW) 15.3 11.5-14.5 [facility] HospitalOiwwzdhICRMARXJNR7072-01-89 10:22:00 Test Item Value Reference Range Interpretation Comments WBC (test code = WBC) 5.6 3.7-10.4 [facility] HospitalKinfmtxDFUKGBDALY2284-54-47 10:22:00 Test Item Value Reference Range Interpretation Comments Eosinophils # (test code 0.5 See_Comment [A utomated message] The = Eosinophils #) system whic h generated this result tra nsmitted reference range : <=0.5. The reference r leo was not used to int erpret this result as normal/abnormal . [facility] HospitalDzafkowPJTIKOFHHQ0356-66-93 10:22:00 Test Item Value Reference Range Interpretation Comments Microcyte (test code = 1+ *ABN*(06/15/16 Microcyte) 4:22 AM) [facility] HospitalPhmvadkAWMKKCAJLV4514-97-84 10:22:00 Test Item Value Reference Range Interpretation Comments Basophils # (test code 0.1 See_Comment [Aut omated message] The = Basophils #) system which generated this result tra nsmitted reference range : <=0.2. The reference r leo was not used to int erpret this result as normal/abnormal . [facility] HospitalNwslkfoJBOTQRUPRK9080-15-41 10:22:00 Test Item Value Reference Range Interpretation Comments Lymphocytes (test code = Lymphocytes) 33.5 20.0-40.0 [facility] HospitalWcxpdavKBUPRVMBSP2563-45-85 10:22:00 Test Item Value Reference Range Interpretation Comments Segs (test code = Segs) 47.6 45.0-75.0 [facility] HospitalVpqpucgEEGGHYIDPQ9739-47-57 10:22:00 Test Item Value Reference Range Interpretation Comments Monocytes (test code = Monocytes) 8.4 2.0-12.0 [facility] HospitalPkhtcibYHRYTEBMOT4066-60-18 10:22:00 Test Item Value Reference Range Interpretation Comments Eosinophils (test code = 9.4 See_Comment [A utomated message] The Eosinophils) system which ge nerated this result tra nsmitted reference range : <=4.0. The reference r leo was not used to int erpret this result as normal/abnormal . [facility] HospitalAvulqghAIFZZXWCMY0839-75-42 10:22:00 Test Item Value Reference Range Interpretation Comments Segs-Bands # (test code = Segs-Bands #) 2.6 1.5-8.1 [facility] HospitalJkwkrjlKHRBXKDUEW7638-35-75 10:22:00 Test Item Value Reference Range Interpretation Comments Lymphocytes # (test code = Lymphocytes 1.9 1.0-5.5 #) [facility] HospitalLhqtdsbCINAELUNGG6420-35-59 10:22:00 Test Item Value Reference Range Interpretation Comments Basophils (test code = 1.1 See_Comment [Aut omated message] The Basophils) system which ge nerated this result tra nsmitted reference range : <=1.0. The reference r leo was not used to int erpret this result as normal/abnormal . [facility] HospitalQjxruzdYCMBJADECP9749-34-27 10:22:00 Test Item Value Reference Range Interpretation Comments Monocytes # (test code 0.5 See_Comment [Aut omated message] The = Monocytes #) system which generated this result tra nsmitted reference range : <=0.8. The reference r leo was not used to int erpret this result as normal/abnormal . [facility]2016-12-25 11:03:00 Test Item Value Reference Range Interpretation Comments Phosphorus (test code = Phosphorus) 4.8 2.5-4.5 [facility]2016-12-25 11:03:00 Test Item Value Reference Range Interpretation Comments Magnesium Lvl (test code = Magnesium 2.0 1.8-2.4 Lvl) [facility]2016-12-25 11:03:00 Test Item Value Reference Range Interpretation Comments eGFR (test code = eGFR) 32 [facility]2016-12-25 11:03:00 Test Item Value Reference Range Interpretation Comments Chloride Lvl (test code = Chloride Lvl) 101 95-109 [facility]2016-12-25 11:03:00 Test Item Value Reference Range Interpretation Comments Potassium Lvl (test code = Potassium 4.4 3.5-5.1 Lvl) [facility]2016-12-25 11:03:00 Test Item Value Reference Range Interpretation Comments BUN (test code = BUN) 37 7-22 [facility]2016-12-25 11:03:00 Test Item Value Reference Range Interpretation Comments Glucose Lvl (test code = Glucose Lvl) 119 70-99 [facility]2016-12-25 11:03:00 Test Item Value Reference Range Interpretation Comments Creatinine Lvl (test code = Creatinine 2.00 0.50-1.40 Lvl) [facility]2016-12-25 11:03:00 Test Item Value Reference Range Interpretation Comments Sodium Lvl (test code = Sodium Lvl) 142 135-145 [facility]2016-12-25 11:03:00 Test Item Value Reference Range Interpretation Comments Calcium Lvl (test code = Calcium Lvl) 8.7 8.5-10.5 [facility]2016-12-25 11:03:00 Test Item Value Reference Range Interpretation Comments CO2 (test code = CO2) 32 24-32 [facility]2016-12-25 11:03:00 Test Item Value Reference Range Interpretation Comments AGAP (test code = AGAP) 13.4 10.0-20.0 [facility] HospitalBntmrmwDQBGQIISPB3471-13-23 11:03:00 Test Item Value Reference Range Interpretation Comments Eosinophils (test code = 10.3 See_Comment [A utomated message] The Eosinophils) system which ge nerated this result tra nsmitted reference range : <=4.0. The reference r leo was not used to int erpret this result as normal/abnormal . [facility] HospitalGljcropTEXADAPYBM1744-15-73 11:03:00 Test Item Value Reference Range Interpretation Comments Basophils # (test code 0.1 See_Comment [Aut omated message] The = Basophils #) system which generated this result tra nsmitted reference range : <=0.2. The reference r leo was not used to int erpret this result as normal/abnormal . [facility] HospitalBcqwzgeOLRGHXPGFC6599-91-40 11:03:00 Test Item Value Reference Range Interpretation Comments Eosinophils # (test code 0.5 See_Comment [A utomated message] The = Eosinophils #) system whic h generated this result tra nsmitted reference range : <=0.5. The reference r leo was not used to int erpret this result as normal/abnormal . [facility] HospitalQlkfvwwNGDXNWBYIZ4074-16-12 11:03:00 Test Item Value Reference Range Interpretation Comments Monocytes # (test code 0.5 See_Comment [Aut omated message] The = Monocytes #) system which generated this result tra nsmitted reference range : <=0.8. The reference r leo was not used to int erpret this result as normal/abnormal . [facility] HospitalGmymbezANKFVLXWQD4551-53-35 11:03:00 Test Item Value Reference Range Interpretation Comments Segs-Bands # (test code = Segs-Bands #) 2.1 1.5-8.1 [facility] HospitalUrqwjfbMRRQICVJYG0689-80-01 11:03:00 Test Item Value Reference Range Interpretation Comments Basophils (test code = 1.2 See_Comment [Aut omated message] The Basophils) system which ge nerated this result tra nsmitted reference range : <=1.0. The reference r leo was not used to int erpret this result as normal/abnormal . [facility] HospitalGylsyieIMIWHHGNYB5975-71-65 11:03:00 Test Item Value Reference Range Interpretation Comments Lymphocytes # (test code = Lymphocytes 1.9 1.0-5.5 #) [facility] HospitalOwxfzduNLFJAYXBKE1087-42-74 11:03:00 Test Item Value Reference Range Interpretation Comments Segs (test code = Segs) 42.5 45.0-75.0 [facility] HospitalWbcuktpCCGCDQHSYF0386-15-45 11:03:00 Test Item Value Reference Range Interpretation Comments Lymphocytes (test code = Lymphocytes) 37.0 20.0-40.0 [facility] HospitalDhmdvfqHKKYIECGVN5728-66-93 11:03:00 Test Item Value Reference Range Interpretation Comments Monocytes (test code = Monocytes) 9.0 2.0-12.0 [facility] HospitalQkgekocRYHTSSYGCI5808-63-85 11:03:00 Test Item Value Reference Range Interpretation Comments MPV (test code = MPV) 9.8 7.4-10.4 [facility] HospitalEtffichQABKOGEHTV5407-02-96 11:03:00 Test Item Value Reference Range Interpretation Comments WBC (test code = WBC) 5.0 3.7-10.4 [facility] HospitalWwnhlolQHUGTXIHPW7618-47-99 11:03:00 Test Item Value Reference Range Interpretation Comments RBC (test code = RBC) 3.57 4.20-5.40 [facility] HospitalFlghidjUMWNHLBZYT9237-15-20 11:03:00 Test Item Value Reference Range Interpretation Comments Hgb (test code = Hgb) 9.4 12.0-16.0 [facility] HospitalQuivyccCQQZOUTIDI4829-28-24 11:03:00 Test Item Value Reference Range Interpretation Comments Hct (test code = Hct) 28.5 36.0-48.0 [facility] HospitalJidcqsrBKAFTQFJNM8444-92-72 11:03:00 Test Item Value Reference Range Interpretation Comments Platelet (test code = Platelet) 183 133-450 [facility] HospitalGvfarpnQIVDZGJTKY1518-00-68 11:03:00 Test Item Value Reference Range Interpretation Comments MCV (test code = MCV) 79.9 80.0-98.0 [facility] HospitalQvvakmoZGXITKCASI0914-36-95 11:03:00 Test Item Value Reference Range Interpretation Comments MCH (test code = MCH) 26.3 pg 27.0-31.0 [facility] HospitalLaeeilqTNLQJURRRL7175-82-98 11:03:00 Test Item Value Reference Range Interpretation Comments MCHC (test code = MCHC) 33.0 32.0-36.0 [facility] HospitalNmysslsRGJNKAHKHI0900-61-12 11:03:00 Test Item Value Reference Range Interpretation Comments RDW (test code = RDW) 15.9 11.5-14.5 [facility]2016-12-24 10:26:00 Test Item Value Reference Range Interpretation Comments U Prot/Creat (test code = U Prot/Creat) 6.9 [facility]2016-12-24 10:26:00 Test Item Value Reference Range Interpretation Comments U Creatinine (test code = U Creatinine) 19.30 [facility]2016-12-24 10:26:00 Test Item Value Reference Range Interpretation Comments U Protein (test code = U Protein) 133.1 [facility] HospitalUwaukdkILUUMXSPLM3222-85-02 09:20:00 Test Item Value Reference Range Interpretation Comments MPV (test code = MPV) 9.7 7.4-10.4 [facility] HospitalOmktqxaMTAZRUUPFB0845-61-91 09:20:00 Test Item Value Reference Range Interpretation Comments Platelet (test code = Platelet) 184 133-450 [facility] HospitalFgszczaIYIKEZVXHN7163-47-06 09:20:00 Test Item Value Reference Range Interpretation Comments RDW (test code = RDW) 15.9 11.5-14.5 [facility] HospitalXtbljfsXPIMOKDUXB7749-90-64 09:20:00 Test Item Value Reference Range Interpretation Comments MCV (test code = MCV) 79.3 80.0-98.0 [facility] HospitalKgbybqjIPZPBZXNID8180-11-39 09:20:00 Test Item Value Reference Range Interpretation Comments MCHC (test code = MCHC) 33.0 32.0-36.0 [facility] HospitalQpcjbrkVGWQJPHKGC6068-02-50 09:20:00 Test Item Value Reference Range Interpretation Comments MCH (test code = MCH) 26.2 pg 27.0-31.0 [facility] HospitalGlqspctXLCJQDROUN5177-55-17 09:20:00 Test Item Value Reference Range Interpretation Comments Hct (test code = Hct) 29.4 36.0-48.0 [facility] HospitalApuwkluFYSFYPIJTL7201-97-02 09:20:00 Test Item Value Reference Range Interpretation Comments Hgb (test code = Hgb) 9.7 12.0-16.0 [facility] HospitalQflogwdQOKGXOBAJY8828-26-98 09:20:00 Test Item Value Reference Range Interpretation Comments RBC (test code = RBC) 3.70 4.20-5.40 [facility] HospitalTjclfqvIUEEWJHJNZ2158-32-71 09:20:00 Test Item Value Reference Range Interpretation Comments WBC (test code = WBC) 5.7 3.7-10.4 [facility] HospitalDglhnvgPDQATHLWBS5657-88-98 09:20:00 Test Item Value Reference Range Interpretation Comments Basophils # (test code 0.1 See_Comment [Aut omated message] The = Basophils #) system which generated this result tra nsmitted reference range : <=0.2. The reference r leo was not used to int erpret this result as normal/abnormal . [facility] HospitalCfuqaebBBKJTIEOFA3400-26-18 09:20:00 Test Item Value Reference Range Interpretation Comments Lymphocytes # (test code = Lymphocytes 2.2 1.0-5.5 #) [facility] HospitalTezbearEOPQLXUDGA6593-29-70 09:20:00 Test Item Value Reference Range Interpretation Comments Eosinophils # (test code 0.5 See_Comment [A utomated message] The = Eosinophils #) system whic h generated this result tra nsmitted reference range : <=0.5. The reference r leo was not used to int erpret this result as normal/abnormal . [facility] HospitalYricokgWLOFVWNESJ7323-20-71 09:20:00 Test Item Value Reference Range Interpretation Comments Monocytes # (test code 0.5 See_Comment [Aut omated message] The = Monocytes #) system which generated this result tra nsmitted reference range : <=0.8. The reference r leo was not used to int erpret this result as normal/abnormal . [facility] HospitalAswnmjuCXMYVQESLQ1354-58-24 09:20:00 Test Item Value Reference Range Interpretation Comments Basophils (test code = 1.1 See_Comment [Aut omated message] The Basophils) system which ge nerated this result tra nsmitted reference range : <=1.0. The reference r leo was not used to int erpret this result as normal/abnormal . [facility] HospitalWvendotEZGTWWCXDN4600-53-75 09:20:00 Test Item Value Reference Range Interpretation Comments Segs-Bands # (test code = Segs-Bands #) 2.3 1.5-8.1 [facility] HospitalJexlpgcMOEAUMZVOE1702-97-04 09:20:00 Test Item Value Reference Range Interpretation Comments Eosinophils (test code = 9.5 See_Comment [A utomated message] The Eosinophils) system which ge nerated this result tra nsmitted reference range : <=4.0. The reference r leo was not used to int erpret this result as normal/abnormal . [facility] HospitalNqyuazjHRWWOMMVOG2946-50-53 09:20:00 Test Item Value Reference Range Interpretation Comments Monocytes (test code = Monocytes) 9.0 2.0-12.0 [facility] HospitalQbxdcrqKDKGOJKQDD1427-42-67 09:20:00 Test Item Value Reference Range Interpretation Comments Lymphocytes (test code = Lymphocytes) 38.9 20.0-40.0 [facility] HospitalWfzhancFBRMZWMFXD0772-45-48 09:20:00 Test Item Value Reference Range Interpretation Comments Segs (test code = Segs) 41.5 45.0-75.0 [facility]2016-12-24 06:34:00 Test Item Value Reference Range Interpretation Comments Magnesium Lvl (test code = Magnesium 1.7 1.8-2.4 Lvl) [facility]2016-12-24 06:34:00 Test Item Value Reference Range Interpretation Comments Phosphorus (test code = Phosphorus) 4.2 2.5-4.5 [facility]EbaardrBXXRLYAKECOS7457-53-23 06:34:00 Test Item Value Reference Range Interpretation Comments AGAP (test code = AGAP) 14.3 10.0-20.0 [facility] HospitalHqcmedbDFJPQWVTRTEB5327-83-35 06:34:00 Test Item Value Reference Range Interpretation Comments eGFR (test code = eGFR) 41 [facility] HospitalIdqdxfhFRZIWGJQTADH6058-46-11 06:34:00 Test Item Value Reference Range Interpretation Comments Chloride Lvl (test code = Chloride Lvl) 103 95-109 [facility] HospitalFsiafkbGYTFXBVYXZAO4415-71-72 06:34:00 Test Item Value Reference Range Interpretation Comments Calcium Lvl (test code = Calcium Lvl) 8.5 8.5-10.5 [facility] HospitalAhiqwwmGYZKTWSAALWR9156-69-90 06:34:00 Test Item Value Reference Range Interpretation Comments CO2 (test code = CO2) 32 24-32 [facility] HospitalDaxdamiZCSEIFTSNLXB5444-08-51 06:34:00 Test Item Value Reference Range Interpretation Comments Glucose Lvl (test code = Glucose Lvl) 173 70-99 [facility] HospitalHvjqemvBWVNTEOBYJOW6616-27-45 06:34:00 Test Item Value Reference Range Interpretation Comments BUN (test code = BUN) 37 7-22 [facility] HospitalPjfsszyESVHKTTQLONV3173-90-62 06:34:00 Test Item Value Reference Range Interpretation Comments Creatinine Lvl (test code = Creatinine 1.63 0.50-1.40 Lvl) [facility] HospitalNiycmgvEISSMSJKBGYK3056-85-35 06:34:00 Test Item Value Reference Range Interpretation Comments Potassium Lvl (test code = Potassium 4.3 3.5-5.1 Lvl) [facility] HospitalTzpvvqyEEGPGHGHZGMH7115-61-38 06:34:00 Test Item Value Reference Range Interpretation Comments Sodium Lvl (test code = Sodium Lvl) 145 135-145 [facility]2016-12-22 16:21:00 Test Item Value Reference Range Interpretation Comments Ammonia (test code = Ammonia) 48.0 [facility] AllianceInrkotcBBCCQOFNLA6719-52-97 14:56:00 Test Item Value Reference Range Interpretation Comments IVETTE Interp (test code Pattern appears = IVETTE Interp) Nucleolar. [facility]MdhtxjcNNWOCPNKYM0304-83-45 14:56:00 Test Item Value Reference Range Interpretation Comments IVETTE Titer (test code = 1:40 *ABN*(06/11/16 IVETTE Titer) 8:56 AM) [facility] AllianceZxhypylYZUCWHCCZQ7939-92-11 14:56:00 Test Item Value Reference Range Interpretation Comments Hep Bs Ag (test code Negative *NA*(06/11/16 = Hep Bs Ag) 8:56 AM) [facility] AllianceMfgkhcmSDEKNUCHGH0826-42-35 14:56:00 Test Item Value Reference Range Interpretation Comments Hep C Ab (test code = Negative *NA*(06/11/16 Hep C Ab) 8:56 AM) [facility] AllianceXdocnwhMNOKAZWUHW0146-29-44 14:56:00 Test Item Value Reference Range Interpretation Comments Hep B Core IgM (test Negative *NA*(06/11/16 code = Hep B Core 8:56 AM) IgM) [facility] AllianceGtezicsBYNEVIODHX3045-98-09 14:56:00 Test Item Value Reference Range Interpretation Comments Hep A IgM (test code Negative *NA*(06/11/16 = Hep A IgM) 8:56 AM) [facility] AllianceDidzhocFWYNDSURAO6013-03-46 14:56:00 Test Item Value Reference Range Interpretation Comments HIV Ag/Ab 4th Gen Negative *NA*(06/11/16 (test code = HIV 8:56 AM) Ag/Ab 4th Gen) [facility] AllianceCdcueduNKSNHNHKWS9499-84-63 14:56:00 Test Item Value Reference Range Interpretation Comments IVETTE (test code = IVETTE) Positive *ABN*(06/11/16 8:56 AM) [facility]2016-12-22 10:42:00 Test Item Value Reference Range Interpretation Comments Bili Total (test code = Bili Total) 0.1 0.2-1.3 [facility]2016-12-22 10:42:00 Test Item Value Reference Range Interpretation Comments Total Protein (test code = Total 5.2 6.4-8.4 Protein) [facility]2016-12-22 10:42:00 Test Item Value Reference Range Interpretation Comments Albumin Lvl (test code = Albumin Lvl) 1.6 3.5-5.0 [facility]2016-12-22 10:42:00 Test Item Value Reference Range Interpretation Comments B/C Ratio (test code = B/C Ratio) 20 6-25 [facility]2016-12-22 10:42:00 Test Item Value Reference Range Interpretation Comments Globulin (test code = Globulin) 3.6 2.7-4.2 [facility] [id number] 10:42:00 Test Item Value Reference Range Interpretation Comments A/G Ratio (test code = A/G Ratio) 0.4 0.7-1.6 [facility] AIFZA0628-16-96 10:42:00 Test Item Value Reference Range Interpretation Comments Alk Phos (test code = Alk Phos) 74 39-136 [facility] ROKDH4559-97-47 10:42:00 Test Item Value Reference Range Interpretation Comments ALT (test code = ALT) 14 See_Comment [Auto mated message] The system which ge nerated this result transmit rohit reference range : <=65. The reference range was not used to interpr et this result as reji l/abnormal. [facility] MHXXK0557-35-00 10:42:00 Test Item Value Reference Range Interpretation Comments AST (test code = AST) 13 See_Comment [Auto mated message] The system which ge nerated this result transmit rohit reference range : <=37. The reference range was not used to interpr et this result as reji l/abnormal. [facility]aleIxghpnbZDAXRSMDRU3125-19-40 10:42:00 Test Item Value Reference Range Interpretation Comments INR (test code = INR) 1.06 0.85-1.17 [facility]valeUuuljycXLVISPWORB3678-47-68 10:42:00 Test Item Value Reference Range Interpretation Comments PT (test code = PT) 14.0 s 12.0-14.7 [facility]CpfathtFEGZMWCVTL0155-28-29 10:42:00 Test Item Value Reference Range Interpretation Comments PTT (test code = PTT) 36.4 s 22.9-35.8 [facility]aleSPECIAL JAUQESYPX5622-29-80 10:42:00 Test Item Value Reference Range Interpretation Comments Hgb A1C (test code = Hgb A1C) 10.5 [facility]landannCARDIAC HQCRGDO4743-65-05 02:08:00 Test Item Value Reference Range Interpretation Comments CK MB Index (test 1.8 See_Comment [Automate d message] The code = CK MB Index) system w [facility] generated this result transmit rohit reference range : <=2.5. The reference range was not used to interpr et this result as reji l/abnormal. [facility]2016-12-22 02:08:00 Test Item Value Reference Range Interpretation Comments CK MB (test code = CK MB) 2.9 0.5-3.6 [facility] [id number] 02:08:00 Test Item Value Reference Range Interpretation Comments Troponin-T (test code 0.061 See_Comment [Auto mated message] The = Troponin-T) system which g enerated this result transmit rohit reference range : <=0.100. The reference r leo was not used to interpr et this result as reji l/abnormal. [facility] [employer]book [id number] 02:08:00 Test Item Value Reference Range Interpretation Comments Total CK (test code = Total CK) 159 12-191 [facility] [id number] 02:08:00 Test Item Value Reference Range Interpretation Comments Troponin-I (test code no gt See_Comment [Auto mated message] The = Troponin-I) system which g enerated this result transmit rohit reference range : <=0.40. The reference r leo was not used to interpr et this result as reji l/abnormal. [facility] Cymbet2016-12-22 02:08:00 Test Item Value Reference Range Interpretation Comments Bili Total (test code = Bili Total) 0.2 0.2-1.3 [facility] [employer]2016-12-22 02:08:00 Test Item Value Reference Range Interpretation Comments Bili Direct (test code 0.1 See_Comment [Aut omated message] The = Bili Direct) system which generated this result tra nsmitted reference range : <=0.3. The reference r leo was not used to int erpret this result as reji l/abnormal. [facility] [employer]2016-12-22 02:08:00 Test Item Value Reference Range Interpretation Comments Bili Indirect (test 0.1 See_Comment [Automa rohit message] The code = Bili Indirect) system which generated this result tra nsmitted reference range : <=1.0. The reference r elo was not used to int erpret this result as normal/abnormal . [facility] [employer]2016-12-22 02:08:00 Test Item Value Reference Range Interpretation Comments Total Protein (test code = Total 5.7 6.4-8.4 Protein) [facility] [id number] 02:08:00 Test Item Value Reference Range Interpretation Comments A/G Ratio (test code = A/G Ratio) 0.5 0.7-1.6 [facility] [id number] 02:08:00 Test Item Value Reference Range Interpretation Comments Albumin Lvl (test code = Albumin Lvl) 1.8 3.5-5.0 [facility] [id number] 02:08:00 Test Item Value Reference Range Interpretation Comments Globulin (test code = Globulin) 3.9 2.7-4.2 [facility] [id number] 02:08:00 Test Item Value Reference Range Interpretation Comments Alk Phos (test code = Alk Phos) 99 39-136 [facility] [id number] 02:08:00 Test Item Value Reference Range Interpretation Comments AST (test code = AST) 21 See_Comment [Auto mated message] The system which ge nerated this result transmit rohit reference range : <=37. The reference range was not used to interpr et this result as reji l/abnormal. [facility] [id number] 02:08:00 Test Item Value Reference Range Interpretation Comments ALT (test code = ALT) 17 See_Comment [Auto mated message] The system which ge nerated this result transmit rohit reference range : <=65. The reference range was not used to interpr et this result as reji l/abnormal. [facility] [employer] [id number] 02:08:00 Test Item Value Reference Range Interpretation Comments UDS Note (test code = See Note *NA*(06/10/16 UDS Note) 8:08 PM) [facility] TAPP2016-12-22 02:08:00 Test Item Value Reference Range Interpretation Comments U Propoxyph Scr (test Negative *NA*(06/10/16 code = U Propoxyph Scr) 8:08 PM) [facility]ie/[id number] 02:08:00 Test Item Value Reference Range Interpretation Comments U Opiate Scr (test Negative *NA*(06/10/16 code = U Opiate Scr) 8:08 PM) [facility]/[id number] 02:08:00 Test Item Value Reference Range Interpretation Comments U Methadone Scr (test Negative *NA*(06/10/16 code = U Methadone Scr) 8:08 PM) [facility] [id number] 02:08:00 Test Item Value Reference Range Interpretation Comments U Phencyc Scr (test Negative *NA*(06/10/16 code = U Phencyc Scr) 8:08 PM) [facility]annDR[facility] [id number] 02:08:00 Test Item Value Reference Range Interpretation Comments U Cannab Scr (test Negative *NA*(06/10/16 code = U Cannab Scr) 8:08 PM) [facility] [id number] 02:08:00 Test Item Value Reference Range Interpretation Comments U Amph Scr (test code Negative *NA*(06/10/16 = U Amph Scr) 8:08 PM) [facility]annDR[facility] [id number] 02:08:00 Test Item Value Reference Range Interpretation Comments U Kelly Scr (test code Negative *NA*(06/10/16 = U Kelly Scr) 8:08 PM) [facility]annDR[facility] [id number] 02:08:00 Test Item Value Reference Range Interpretation Comments U Benzodia Scr (test Negative *NA*(06/10/16 code = U Benzodia Scr) 8:08 PM) [facility]annDR[facility] [id number] 02:08:00 Test Item Value Reference Range Interpretation Comments U Cocaine Scr (test Negative *NA*(06/10/16 code = U Cocaine Scr) 8:08 PM) [facility] [id number] 02:08:00 Test Item Value Reference Range Interpretation Comments LDL (Calculated) (test code = LDL 75 (Calculated)) [facility] Ma[id number] 02:08:00 Test Item Value Reference Range Interpretation Comments VLDL (test code = VLDL) 27 [facility] [id number] 02:08:00 Test Item Value Reference Range Interpretation Comments Chol (test code = Chol) 133 [facility] ZyfdwdrZQVQQL2941-14-57 02:08:00 Test Item Value Reference Range Interpretation Comments Trig (test code = Trig) 133 [facility] [id number] 02:08:00 Test Item Value Reference Range Interpretation Comments CHD Risk (test code = CHD Risk) 4.29 3.90-5.80 [facility]aleMomgabqMFWWDB7738-07-12 02:08:00 Test Item Value Reference Range Interpretation Comments HDL (test code = HDL) 31 [facility] AND [id number] 02:08:00 Test Item Value Reference Range Interpretation Comments UA Urobilinogen (test code = UA <=1.0 mg/dL 0.1-1.0 Urobilinogen) [facility] AND [id number] 02:08:00 Test Item Value Reference Range Interpretation Comments UA Ketones (test code = UA Negative mg/dL Ketones) [facility] AND [id number] 02:08:00 Test Item Value Reference Range Interpretation Comments UA Glucose (test code = UA Glucose) 300 mg/dL [facility] AND [id number] 02:08:00 Test Item Value Reference Range Interpretation Comments UA Protein (test code = UA >=300 mg/dL Protein) [facility] AND [id number] 02:08:00 Test Item Value Reference Range Interpretation Comments UA pH (test code = UA pH) 6.0 5.0-8.0 [facility] AND [id number] 02:08:00 Test Item Value Reference Range Interpretation Comments UA Nitrite (test code Negative (06/10/16 8:08 = UA Nitrite) PM) [facility] AND [id number] 02:08:00 Test Item Value Reference Range Interpretation Comments UA Blood (test code = Trace *ABN*(06/10/16 UA Blood) 8:08 PM) [facility] AND [id number] 02:08:00 Test Item Value Reference Range Interpretation Comments UA Bili (test code = Negative *NA*(06/10/16 UA Bili) 8:08 PM) [facility] AND [id number] 02:08:00 Test Item Value Reference Range Interpretation Comments UA Mucus (test code = UA Mucus) Few /LPF [facility] AND [id number] 02:08:00 Test Item Value Reference Range Interpretation Comments UA RBC (test code = 4 See_Comment [Automa rohit message] The UA RBC) system which ge nerated this result transmit rohit reference range : <=2. The reference range was not used to interpr et this result as reji l/abnormal. [facility] [id number] 02:08:00 Test Item Value Reference Range Interpretation Comments UA Sq Epi (test code = UA Sq Epi) Few /LPF [facility] [id number] 02:08:00 Test Item Value Reference Range Interpretation Comments UA WBC (test code = 5 See_Comment [Automa rohit message] The UA WBC) system which ge nerated this result transmit rohit reference range : <=5. The reference range was not used to interpr et this result as reji l/abnormal. [facility] [id number] 02:08:00 Test Item Value Reference Range Interpretation Comments UA Leuk Est (test code Small *ABN*(06/10/16 = UA Leuk Est) 8:08 PM) [facility] AND [id number] 02:08:00 Test Item Value Reference Range Interpretation Comments UA Hyal Cast (test 1 See_Comment [Automat ed message] The code = UA Hyal Cast) system which generated this result transmit rohit reference range : <=2. The reference range was not used to interpr et this result as reji l/abnormal. [facility] [id number] 02:08:00 Test Item Value Reference Range Interpretation Comments UA Spec Grav (test code = UA Spec Grav) 1.009 [facility] AND [id number] 02:08:00 Test Item Value Reference Range Interpretation Comments UA Color (test code = Yellow *NA*(06/10/16 UA Color) 8:08 PM) [facility] AND [id number] 02:08:00 Test Item Value Reference Range Interpretation Comments UA Turbidity (test code = Clear (06/10/16 8:08 UA Turbidity) PM) [facility]2016-12-22 02:08:00 Test Item Value Reference Range Interpretation Comments U Preg (test code = U Negative (06/10/16 8:08 Preg) PM) [facility]2016-12-22 02:08:00 Test Item Value Reference Range Interpretation Comments U Protein (test code = U Protein) 375.4 [facility]2016-12-22 02:08:00 Test Item Value Reference Range Interpretation Comments U Prot/Creat (test code = U Prot/Creat) 5.4 [facility]aleURINE [id number] 02:08:00 Test Item Value Reference Range Interpretation Comments U Creatinine (test code = U Creatinine) 69.80 [facility]annCARDIAC [id number] 16:53:00 Test Item Value Reference Range Interpretation Comments BNP (test code = BNP) 1135 [facility]aleCARDIAC [id number] 16:53:00 Test Item Value Reference Range Interpretation Comments Troponin-I (test code no gt See_Comment [Auto mated message] The = Troponin-I) system which g enerated this result transmit rohit reference range : <=0.40. The reference r leo was not used to interpr et this result as reji l/abnormal. [facility] [id number] 13:02:00 Test Item Value Reference Range Interpretation Comments Lactic Acid WB (test code = Lactic Acid 0.9 0.5-2.2 WB) [id number] 12:29:44 Test Item Value Reference Range Interpretation Comments Valproic Acid Lvl (test code = Valproic 10 50-100 Acid Lvl) [facility] MainlandQzalxftDBDTPMHCIOPWA6860-03-99 11:21:27 Test Item Value Reference Range Interpretation Comments hCG Tot (test code = hCG Tot) 1 [facility] [id number] 11:21:00 Test Item Value Reference Range Interpretation Comments Albumin Lvl (test code = Albumin Lvl) 3.2 3.5-5.0 [facility] [id number] 11:21:00 Test Item Value Reference Range Interpretation Comments Total Protein (test code = Total 6.6 6.4-8.4 Protein) [facility] [id number] 11:21:00 Test Item Value Reference Range Interpretation Comments Bili Total (test code = Bili Total) 0.6 0.2-1.3 [facility] [id number] 11:21:00 Test Item Value Reference Range Interpretation Comments Alk Phos (test code = Alk Phos) 59 39-136 [facility] MainlandGoSave [id number] 11:21:00 Test Item Value Reference Range Interpretation Comments AST (test code = AST) 11 See_Comment [Auto mated message] The system which ge nerated this result transmit rohit reference range : <=37. The reference range was not used to interpr et this result as reji l/abnormal. [facility]2015-01-06 11:21:00 Test Item Value Reference Range Interpretation Comments ALT (test code = ALT) 17 See_Comment [Auto mated message] The system which ge nerated this result transmit rohit reference range : <=65. The reference range was not used to interpr et this result as reji l/abnormal. [facility]2015-01-06 11:21:00 Test Item Value Reference Range Interpretation Comments eGFR (test code = eGFR) 99 [facility]2015-01-06 11:21:00 Test Item Value Reference Range Interpretation Comments Glucose Lvl (test code = Glucose Lvl) 314 70-99 [facility]2015-01-06 11:21:00 Test Item Value Reference Range Interpretation Comments Potassium Lvl (test code = Potassium 3.4 3.5-5.1 Lvl) [facility]2015-01-06 11:21:00 Test Item Value Reference Range Interpretation Comments BUN (test code = BUN) 11 7-22 [facility]2015-01-06 11:21:00 Test Item Value Reference Range Interpretation Comments Creatinine Lvl (test code = Creatinine 0.8 0.5-1.4 Lvl) [facility]2015-01-06 11:21:00 Test Item Value Reference Range Interpretation Comments Sodium Lvl (test code = Sodium Lvl) 134 135-145 [facility]2015-01-06 11:21:00 Test Item Value Reference Range Interpretation Comments Chloride Lvl (test code = Chloride Lvl) 94 95-109 [facility]2015-01-06 11:21:00 Test Item Value Reference Range Interpretation Comments Calcium Lvl (test code = Calcium Lvl) 9.1 8.5-10.5 [facility]2015-01-06 11:21:00 Test Item Value Reference Range Interpretation Comments CO2 (test code = CO2) 24 24-32 [facility]2015-01-06 11:21:00 Test Item Value Reference Range Interpretation Comments A/G Ratio (test code = A/G Ratio) 0.9 0.7-1.6 [facility]2015-01-06 11:21:00 Test Item Value Reference Range Interpretation Comments Globulin (test code = Globulin) 3.4 2.0-4.0 [facility]2015-01-06 11:21:00 Test Item Value Reference Range Interpretation Comments B/C Ratio (test code = B/C Ratio) 14 6-25 [facility]2015-01-06 11:21:00 Test Item Value Reference Range Interpretation Comments AGAP (test code = AGAP) 19.4 10.0-20.0 [facility]2015-01-06 11:21:00 Test Item Value Reference Range Interpretation Comments Lipase Lvl (test code = Lipase Lvl) 81 73-393 [facility]IpryiwpXBZQNYSCFI9892-25-70 11:21:00 Test Item Value Reference Range Interpretation Comments Large Plt (test code = Large Plt) Slight [facility] HospitalGihewfpKTTERVPUYX2200-70-71 11:21:00 Test Item Value Reference Range Interpretation Comments Basophils # (test code 0.0 See_Comment [Aut omated message] The = Basophils #) system which generated this result tra nsmitted reference range : <=0.2. The reference r leo was not used to int erpret this result as normal/abnormal . [facility] HospitalDjtncduOWDHLSTTMQ5071-81-01 11:21:00 Test Item Value Reference Range Interpretation Comments Anisocyte (test code = 1+ *ABN*(06/26/14 5:21 Anisocyte) AM) [facility] Hos[id number] 11:21:00 Test Item Value Reference Range Interpretation Comments Monocytes # (test code 0.6 See_Comment [Aut omated message] The = Monocytes #) system which generated this result tra nsmitted reference range : <=0.8. The reference r leo was not used to int erpret this result as normal/abnormal . [facility] HospitalSmzlggiFISMNDDMFF4008-86-17 11:21:00 Test Item Value Reference Range Interpretation Comments Eosinophils # (test code 0.1 See_Comment [A utomated message] The = Eosinophils #) system whic h generated this result tra nsmitted reference range : <=0.5. The reference r leo was not used to int erpret this result as normal/abnormal . [facility] HospitalMpcxlasUGPEAVMKNM9019-21-41 11:21:00 Test Item Value Reference Range Interpretation Comments Lymphocytes # (test code = Lymphocytes 2.5 1.0-5.5 #) [facility] HospitalVtmbowoOOYLZCZRQC0555-18-08 11:21:00 Test Item Value Reference Range Interpretation Comments Segs (test code = Segs) 63.3 45.0-75.0 [facility] HospitalFgfmvsiPNMOULZKPM4264-69-84 11:21:00 Test Item Value Reference Range Interpretation Comments Segs-Bands # (test code = Segs-Bands #) 5.6 1.5-8.1 [facility] HospitalOfpqhjvRGAMVDODXB4262-67-25 11:21:00 Test Item Value Reference Range Interpretation Comments Basophils (test code = 0.0 See_Comment [Aut omated message] The Basophils) system which ge nerated this result tra nsmitted reference range : <=1.0. The reference r leo was not used to int erpret this result as normal/abnormal . [facility] HospitalMjsamriRKYQGGIKYR3248-14-83 11:21:00 Test Item Value Reference Range Interpretation Comments Eosinophils (test code = 0.9 See_Comment [A utomated message] The Eosinophils) system which ge nerated this result tra nsmitted reference range : <=4.0. The reference r leo was not used to int erpret this result as normal/abnormal . [facility] HospitalZhoyymqGPXOOFUSXY4750-37-78 11:21:00 Test Item Value Reference Range Interpretation Comments Monocytes (test code = Monocytes) 7.0 2.0-12.0 [facility] HospitalVkyzetdGNPSKBNPME5746-49-53 11:21:00 Test Item Value Reference Range Interpretation Comments Lymphocytes (test code = Lymphocytes) 28.8 20.0-40.0 [facility] HospitalEcvvebzMDNSAGVSQR6535-33-66 11:21:00 Test Item Value Reference Range Interpretation Comments WBC (test code = WBC) 8.8 3.7-10.4 [facility] HospitalWavrbnuWWVMWMBHFM0202-50-27 11:21:00 Test Item Value Reference Range Interpretation Comments RBC (test code = RBC) 5.19 4.20-5.40 [facility] HospitalVpapvatOBJAJGVHYU5238-31-27 11:21:00 Test Item Value Reference Range Interpretation Comments Hgb (test code = Hgb) 14.4 12.0-16.0 [facility] HospitalEsgtfmnDTHPTPBVUG2459-24-97 11:21:00 Test Item Value Reference Range Interpretation Comments Hct (test code = Hct) 43.1 36.0-48.0 [facility] HospitalTaqaerzWAFYVNLPVG2017-90-98 11:21:00 Test Item Value Reference Range Interpretation Comments MCV (test code = MCV) 83.1 80.0-98.0 [facility] HospitalZomearvCNXWALBMSO7471-38-90 11:21:00 Test Item Value Reference Range Interpretation Comments MCH (test code = MCH) 27.8 pg 27.0-31.0 [facility] HospitalFutehfkLJPUFAFOJZ9806-39-27 11:21:00 Test Item Value Reference Range Interpretation Comments RDW (test code = RDW) 13.1 11.5-14.5 [facility] HospitalBvfqvyjYWTDTEHYFH1642-08-01 11:21:00 Test Item Value Reference Range Interpretation Comments MCHC (test code = MCHC) 33.5 32.0-36.0 [facility] HospitalDeespeeSKDWVSXUPE7923-77-92 11:21:00 Test Item Value Reference Range Interpretation Comments Platelet (test code = Platelet) 201 133-450 [facility] HospitalQpjgzstRQWLGUVFVD7114-78-25 11:21:00 Test Item Value Reference Range Interpretation Comments MPV (test code = MPV) 10.4 7.4-10.4 [facility]AodanpsMPRWAHXLPJ4421-61-95 04:48:55 Test Item Value Reference Range Interpretation Comments UA [place] Yeast (test code = UA Occasional /HPF A [place] Yeast) [facility]anoSxfhietZHFLAFCJGC5132-18-09 04:48:55 Test Item Value Reference Range Interpretation Comments UA Mucus (test code = UA Mucus) Few /LPF N [facility]anoWaryvnqZMKDSMAKFL4918-70-51 04:48:55 Test Item Value Reference Range Interpretation Comments UA Sq Epi (test code = UA Sq Moderate /LPF A Epi) [facility]anoQhoiwqsHGJNPJKKFI8810-35-89 04:48:55 Test Item Value Reference Range Interpretation Comments Micro? (test code = Performed (04/14/2013 N Micro?) 23:48:55) [facility]anoNbwbtldBDSZAHNYTZ4247-81-46 04:48:55 Test Item Value Reference Range Interpretation Comments UA WBC (test code = UA WBC) 0-2 /HPF N [facility]anoOiipcyrHWUVLPKWOY1257-06-25 04:48:55 Test Item Value Reference Range Interpretation Comments UA Bacteria (test code = UA Occasional /HPF N Bacteria) [facility]anoXglafzgJRINEQETVE4129-74-87 04:48:55 Test Item Value Reference Range Interpretation Comments UA Glucose (test code = UA Glucose) 500 mg/dL A [facility]anoIpusiedCUREJETRCI7227-73-51 04:48:55 Test Item Value Reference Range Interpretation Comments UA Bili (test code = Negative *NA*(04/14/2013 UA Bili) 23:48:55) [facility]anoRrcygmxAIAGQCLYEB8620-86-94 04:48:55 Test Item Value Reference Range Interpretation Comments UA Ketones (test code = Trace A UA Ketones) *ABN*(04/14/2013 23:48:55) [facility]anoWqzpxrrHYVXKLMWPJ8358-16-82 04:48:55 Test Item Value Reference Range Interpretation Comments UA Blood (test code = Negative (04/14/2013 N UA Blood) 23:48:55) [facility]anoZwugppiSRVNYJICEF2254-03-67 04:48:55 Test Item Value Reference Range Interpretation Comments UA Urobilinogen (test code = UA 0.2 0.1-1.0 N Urobilinogen) [facility]anoZhxsckuEJFOCNUNTP5495-41-75 04:48:55 Test Item Value Reference Range Interpretation Comments UA Nitrite (test code Negative (04/14/2013 N = UA Nitrite) 23:48:55) [facility]anoKuvhxiaBLTXYLQRBZ5557-18-46 04:48:55 Test Item Value Reference Range Interpretation Comments UA Leuk Est (test Negative (04/14/2013 N code = UA Leuk Est) 23:48:55) [facility]anoTnkbpmuCASLWVGKTK5106-79-73 04:48:55 Test Item Value Reference Range Interpretation Comments UA Turbidity (test code = Clear (04/14/2013 N UA Turbidity) 23:48:55) [facility]anoNfcxijsECFENOYRDA6209-96-66 04:48:55 Test Item Value Reference Range Interpretation Comments UA Color (test code = Yellow *NA*(04/14/2013 UA Color) 23:48:55) [facility]anoKwljsbdCARHYHTJBE5807-87-06 04:48:55 Test Item Value Reference Range Interpretation Comments UA pH (test code = UA pH) 7.0 1 5.0-8.0 N [facility]anoSuqsjjbIVAGTNMQAY5350-64-26 04:48:55 Test Item Value Reference Range Interpretation Comments UA Spec Grav (test code = UA Spec 1.025 1 N Grav) [facility]aleJzvzfbeFNFDBDDDHT0053-47-67 04:48:55 Test Item Value Reference Range Interpretation Comments UA Protein (test code = Trace A UA Protein) *ABN*(04/14/2013 23:48:55) [facility]HkaogpjVYEILAHIW9218-40-43 04:28:00 Test Item Value Reference Range Interpretation Comments S Preg (test code = S Negative *NA*(04/14/2013 Preg) 23:28:00) [facility] HospitalYsevucoWAVPVPQPN8606-91-15 04:28:00 Test Item Value Reference Range Interpretation Comments Lipase Lvl (test code = Lipase Lvl) 233 73-393 N [facility] HospitalWlrmtamHIOHBOLQL4271-94-52 04:28:00 Test Item Value Reference Range Interpretation Comments Globulin (test code = Globulin) 4.1 2.0-4.0 H [facility] HospitalXfaijcmOWCQJLEQV5817-49-04 04:28:00 Test Item Value Reference Range Interpretation Comments AGAP (test code = AGAP) 10.5 10.0-20.0 N [facility] HospitalBcemmeaGAWHMYPUR8780-95-31 04:28:00 Test Item Value Reference Range Interpretation Comments B/C Ratio (test code = B/C Ratio) 6 6-25 N [facility] HospitalFwpzvcuXTTXNZVAJ8373-42-21 04:28:00 Test Item Value Reference Range Interpretation Comments A/G Ratio (test code = A/G Ratio) 0.7 0.7-1.6 N [facility] HospitalXszjaszYUTQWJEHV2810-37-14 04:28:00 Test Item Value Reference Range Interpretation Comments eGFR (test code = eGFR) 130 [facility] HospitalOgxlcowGPSVEMTWQ0874-86-76 04:28:00 Test Item Value Reference Range Interpretation Comments Albumin Lvl (test code = Albumin Lvl) 2.9 3.5-5.0 L [facility]KbgjvmvMSUNILVCY7362-44-83 04:28:00 Test Item Value Reference Range Interpretation Comments ASPARTATE TRANSAMINASE 20 See_Comment N [Aut omated message] (test code = ASPARTATE The s ystem which TRANSAMINASE) generated this result transmitted ref erence range: <=37. Th e reference range was not used to interpr et this result as normal/abnormal . [facility] HospitalQvvfupzRUBBRZNUJ0662-16-02 04:28:00 Test Item Value Reference Range Interpretation Comments Bili Total (test code = Bili Total) 0.5 0.2-1.3 N [facility] HospitalHtlbnltLJTXLDSAV0642-13-45 04:28:00 Test Item Value Reference Range Interpretation Comments Alk Phos (test code = Alk Phos) 89 39-136 N [facility] HospitalGwsbjruBWFEBTAPZ8225-75-77 04:28:00 Test Item Value Reference Range Interpretation Comments ALANINE AMINOTRANSFERASE 11 See_Comment N [A utomated message] (test code = ALANINE The sys tem which AMINOTRANSFERASE) generated this result transmitted ref erence range: <=65. Th e reference range was not used to int erpret this result as normal/abnormal . [facility] HospitalJcnlsndBAPKAZMCS4844-56-80 04:28:00 Test Item Value Reference Range Interpretation Comments Creatinine Lvl (test code = Creatinine 0.5 0.5-1.4 N Lvl) [facility] HospitalHdxivccMTWRLYUVM3290-67-87 04:28:00 Test Item Value Reference Range Interpretation Comments BUN (test code = BUN) 3 7-22 L [facility] HospitalOqczgrqSRAVYFXMA9305-96-96 04:28:00 Test Item Value Reference Range Interpretation Comments Glucose Lvl (test code = Glucose Lvl) 255 70-99 H [facility] HospitalUjlmwbhSXFGSARTA3991-51-66 04:28:00 Test Item Value Reference Range Interpretation Comments Total Protein (test code = Total 7.0 6.4-8.4 N Protein) [facility] HospitalQlpzipzXODQMNJLL2978-34-28 04:28:00 Test Item Value Reference Range Interpretation Comments Calcium Lvl (test code = Calcium Lvl) 8.7 8.5-10.5 N [facility] HospitalIrxkufwWSOJMQUJO7090-88-79 04:28:00 Test Item Value Reference Range Interpretation Comments CO2 (test code = CO2) 29 24-32 N [facility] HospitalDtjggjiYSTQGDDNQ3639-31-42 04:28:00 Test Item Value Reference Range Interpretation Comments Chloride Lvl (test code = Chloride Lvl) 104 95-109 N [facility] HospitalYuyeovoHBTANHRMK3935-46-67 04:28:00 Test Item Value Reference Range Interpretation Comments Potassium Lvl (test code = Potassium 3.5 3.5-5.1 N Lvl) [facility] HospitalHytcqdwUFTYKTAJL1815-73-21 04:28:00 Test Item Value Reference Range Interpretation Comments Sodium Lvl (test code = Sodium Lvl) 140 135-145 N [facility] HospitalDtpledxRYWACJWIXB4611-04-63 04:28:00 Test Item Value Reference Range Interpretation Comments PROTIME (test code = PROTIME) 12.1 s 12.0-14.7 N [facility] HospitalAjnuwjwDXGZFNZNNN0142-99-77 04:28:00 Test Item Value Reference Range Interpretation Comments aPTT (test code = aPTT) 39.0 s 22.9-35.8 H [facility] HospitalEutuanySQSYSDZUUL1674-46-74 04:28:00 Test Item Value Reference Range Interpretation Comments INR (test code = INR) 0.90 0.85-1.17 N [facility] HospitalQxxdvkqLMGGQPVJMY2021-74-08 04:28:00 Test Item Value Reference Range Interpretation Comments MCH (test code = MCH) 29.4 pg 27.0-31.0 N [facility] HospitalGzdkpqqCOHCLTRGJG9576-39-04 04:28:00 Test Item Value Reference Range Interpretation Comments MCV (test code = MCV) 86.1 81.0-99.0 N [facility] HospitalEuqhsgxJHPBMQQNHL0590-42-15 04:28:00 Test Item Value Reference Range Interpretation Comments Hct (test code = Hct) 29.4 36.0-48.0 L [facility] HospitalQzkpzsyUAXWIDCCSL5276-62-40 04:28:00 Test Item Value Reference Range Interpretation Comments RDW (test code = RDW) 14.0 11.5-14.5 N [facility] HospitalZdseppdQYISCYRTUR0693-63-06 04:28:00 Test Item Value Reference Range Interpretation Comments WBC X 10x3 (test code = WBC X 10x3) 6.2 3.7-10.4 N [facility] HospitalHrofybcYFYKVTNHEO9014-67-45 04:28:00 Test Item Value Reference Range Interpretation Comments Platelet (test code = Platelet) 178 133-450 N [facility] HospitalTwbtqlrFWQNXVPGNV7372-13-83 04:28:00 Test Item Value Reference Range Interpretation Comments MCHC (test code = MCHC) 34.1 32.0-36.0 N [facility] HospitalApwepvePXYLHMDYTZ7883-67-59 04:28:00 Test Item Value Reference Range Interpretation Comments RBC X 10x6 (test code = RBC X 10x6) 3.41 4.20-5.40 L [facility] HospitalFyiotrlAGFWYYSOEK0083-32-19 04:28:00 Test Item Value Reference Range Interpretation Comments Hgb (test code = Hgb) 10.0 12.0-16.0 L [facility] HospitalKwhybbpIQMRNPPZKB4447-03-73 04:28:00 Test Item Value Reference Range Interpretation Comments MPV (test code = MPV) 10.1 7.4-10.4 N [facility] HospitalVnkvcssYZQKWWUDUS2931-79-39 04:28:00 Test Item Value Reference Range Interpretation Comments Segs-Bands # (test code = Segs-Bands #) 4.4 1.5-8.1 N [facility] HospitalRehxlidFTHYHLSWLJ0440-30-41 04:28:00 Test Item Value Reference Range Interpretation Comments Basophils (test code = 0.7 See_Comment N [Aut omated message] The Basophils) system which ge nerated this result tra nsmitted reference range : <=1.0. The reference r leo was not used to int erpret this result as normal/abnormal . [facility] HospitalAytlteqGAEPDYKAQY7797-18-70 04:28:00 Test Item Value Reference Range Interpretation Comments Segs (test code = Segs) 70.7 45.0-75.0 N [facility] HospitalLkpwlrvBBSCZZTNOK8369-17-03 04:28:00 Test Item Value Reference Range Interpretation Comments Monocytes # (test code 0.3 See_Comment N [Aut omated message] The = Monocytes #) system which generated this result tra nsmitted reference range : <=0.8. The reference r leo was not used to int erpret this result as normal/abnormal . [facility] HospitalNnewehrSIBTBSGWNP8920-87-95 04:28:00 Test Item Value Reference Range Interpretation Comments Lymphocytes # (test code = Lymphocytes 1.2 1.0-5.5 N #) [facility] HospitalXsvxktjMTACLLBJDU1108-63-20 04:28:00 Test Item Value Reference Range Interpretation Comments Monocytes (test code = Monocytes) 4.5 2.0-12.0 N [facility] HospitalCqerkzjAHVGNNFIOE8734-30-59 04:28:00 Test Item Value Reference Range Interpretation Comments Eosinophils (test code = 4.1 See_Comment H [A utomated message] The Eosinophils) system which ge nerated this result tra nsmitted reference range : <=4.0. The reference r leo was not used to int erpret this result as normal/abnormal . [facility] HospitalDvfcxmgHQDYRRKVWU1162-55-07 04:28:00 Test Item Value Reference Range Interpretation Comments Lymphocytes (test code = Lymphocytes) 20.0 20.0-40.0 N [facility] HospitalInwvdwyIQBMBSIJGP8336-24-54 04:28:00 Test Item Value Reference Range Interpretation Comments Basophils # (test code 0.0 See_Comment N [Aut omated message] The = Basophils #) system which generated this result tra nsmitted reference range : <=0.2. The reference r leo was not used to int erpret this result as normal/abnormal . [facility] HospitalGcfzcoqVREJXZQMNO9384-07-80 04:28:00 Test Item Value Reference Range Interpretation Comments Eosinophils # (test code 0.3 See_Comment N [A utomated message] The = Eosinophils #) system whic h generated this result tra nsmitted reference range : <=0.5. The reference r leo was not used to int erpret this result as normal/abnormal . [facility] GLUCOSE ZPFAMMW8789-20-31 01:12:00 Test Item Value Reference Range Interpretation Comments Gluc POC Lifscn (test code = Gluc POC 260 70-99 H Lifscn) [facility] GLUCOSE OPGQFHR3984-26-65 01:12:00 Test Item Value Reference Range Interpretation Comments Comment1 (test code = Comment1) [facility]XedtdmxENZIVXUKAZ8905-44-29 23:40:00 Test Item Value Reference Range Interpretation Comments UA Protein (test code = Trace A UA Protein) *ABN*(03/14/2012 18:40:00) [facility]PrdrffrDQSIIPFZCO0669-44-14 23:40:00 Test Item Value Reference Range Interpretation Comments UA pH (test code = UA pH) 6.0 1 5.0-8.0 N [facility]UtqbrmtXCCGJTUDBM8826-27-37 23:40:00 Test Item Value Reference Range Interpretation Comments UA Ketones (test code = >=80 mg/dL UA Ketones) *NA*(03/14/2012 18:40:00) [facility]KekdekuTNRBFLXRBS6701-62-54 23:40:00 Test Item Value Reference Range Interpretation Comments UA Glucose (test code = >=1000 mg/dL A UA Glucose) *ABN*(03/14/2012 18:40:00) [facility] AustinFfgobshMFSAAKHBCK0200-36-38 23:40:00 Test Item Value Reference Range Interpretation Comments UA Blood (test code = Negative (03/14/2012 N UA Blood) 18:40:00) [facility]HmsxawtHKSNNPDIPZ7548-79-94 23:40:00 Test Item Value Reference Range Interpretation Comments UA Nitrite (test code Negative (03/14/2012 N = UA Nitrite) 18:40:00) [facility]PtqjfwzRPXTAEXUHN5926-07-13 23:40:00 Test Item Value Reference Range Interpretation Comments UA Urobilinogen (test code = UA 0.2 0.1-1.0 N Urobilinogen) [facility]anoZzwfmjgGMTDZWOMWP7037-82-16 23:40:00 Test Item Value Reference Range Interpretation Comments UA Leuk Est (test Negative (03/14/2012 N code = UA Leuk Est) 18:40:00) [facility]MlnhvfhXDFYOKIVRG7614-44-09 23:40:00 Test Item Value Reference Range Interpretation Comments UA Bili (test code = Negative *NA*(03/14/2012 UA Bili) 18:40:00) [facility]SnklsgjQPAWLCAMPH7961-73-32 23:40:00 Test Item Value Reference Range Interpretation Comments UA Turbidity (test code = Clear (03/14/2012 N UA Turbidity) 18:40:00) [facility]anoDnyfomxKGMUNKHKKY7253-54-19 23:40:00 Test Item Value Reference Range Interpretation Comments UA Color (test code = Yellow *NA*(03/14/2012 UA Color) 18:40:00) [facility]anoRsnswsjPQLKWCENTR8558-36-27 23:40:00 Test Item Value Reference Range Interpretation Comments UA Spec Grav (test >=1.030 A code = UA Spec Grav) *ABN*(03/14/2012 18:40:00) [facility]QfeejwmHMNDJTQKFH0605-75-11 23:40:00 Test Item Value Reference Range Interpretation Comments UA Sq Epi (test code Occasional /LPF N = UA Sq Epi) (03/14/2012 18:40:00) [facility]anoUxilneyFYCJGCFXUW9601-61-15 23:40:00 Test Item Value Reference Range Interpretation Comments UA WBC (test code = UA 3-5 /HPF (03/14/2012 N WBC) 18:40:00) [facility]DsqyjkmSTWMFDBXME2175-90-88 23:40:00 Test Item Value Reference Range Interpretation Comments UA Bacteria (test code Occasional /HPF N = UA Bacteria) (03/14/2012 18:40:00) [facility] HospitalMnsiqvlKTQQWWBLO1572-87-39 22:50:00 Test Item Value Reference Range Interpretation Comments S Preg (test code = S Negative *NA*(03/14/2012 Preg) 17:50:00) [facility] HospitalEmolhdcEMNVLDXNL3488-33-53 22:50:00 Test Item Value Reference Range Interpretation Comments Lipase Lvl (test code = Lipase Lvl) 45 73-393 L [facility] HospitalBhdpdndNLJVFQYNN1939-61-87 22:50:00 Test Item Value Reference Range Interpretation Comments A/G Ratio (test code = A/G Ratio) 1.2 0.7-1.6 N [facility] HospitalGehgvwnQUNFZJJWG1600-25-03 22:50:00 Test Item Value Reference Range Interpretation Comments Globulin (test code = Globulin) 3.8 2.0-4.0 N [facility] HospitalBeztuhmMYDPLDPFH7155-76-08 22:50:00 Test Item Value Reference Range Interpretation Comments B/C Ratio (test code = B/C Ratio) 21 6-25 N [facility] HospitalZpxnmfzWDTEJHJNX5034-01-34 22:50:00 Test Item Value Reference Range Interpretation Comments AGAP (test code = AGAP) 16.8 10.0-20.0 N [facility] HospitalPnqhcnxXCMJYVVCL1620-38-58 22:50:00 Test Item Value Reference Range Interpretation Comments Bili Total (test code = Bili Total) 1.1 0.2-1.3 N [facility] HospitalZcbwzalZHZTPHOXG6141-06-73 22:50:00 Test Item Value Reference Range Interpretation Comments Total Protein (test code = Total 8.2 6.4-8.4 N Protein) [facility] HospitalMcsgndxLVZQHKISU5316-28-61 22:50:00 Test Item Value Reference Range Interpretation Comments Potassium Lvl (test code = Potassium 3.8 3.5-5.1 N Lvl) [facility] HospitalUnvddonBMXBUDTFG9910-86-29 22:50:00 Test Item Value Reference Range Interpretation Comments Creatinine Lvl (test code = Creatinine 0.7 0.5-1.4 N Lvl) [facility] HospitalNcsuzlpWRVPRQCSS9549-09-17 22:50:00 Test Item Value Reference Range Interpretation Comments Sodium Lvl (test code = Sodium Lvl) 139 135-145 N [facility] HospitalTyxblwoRETCARGJO3392-29-73 22:50:00 Test Item Value Reference Range Interpretation Comments Chloride Lvl (test code = Chloride Lvl) 99 95-109 N [facility] HospitalFqhpavtRRSFINQEN5770-58-92 22:50:00 Test Item Value Reference Range Interpretation Comments CO2 (test code = CO2) 27 24-32 N [facility] HospitalPqrpeknIOTDOSCCL9509-69-59 22:50:00 Test Item Value Reference Range Interpretation Comments Glucose Lvl (test code = Glucose Lvl) 301 70-99 H [facility] HospitalPkenmqgZHYPQSKIS0875-55-52 22:50:00 Test Item Value Reference Range Interpretation Comments BUN (test code = BUN) 15 7-22 N [facility] HospitalImgdbzzHZJDNIXFZ1572-54-46 22:50:00 Test Item Value Reference Range Interpretation Comments ALT (test code = ALT) 24 See_Comment N [Auto mated message] The system which ge nerated this result transmit rohit reference range : <=65. The reference range was not used to interpr et this result as reji l/abnormal. [facility] HospitalDsebcnvXMNETZEJI3609-97-14 22:50:00 Test Item Value Reference Range Interpretation Comments AST (test code = AST) 20 See_Comment N [Auto mated message] The system which ge nerated this result transmit rohit reference range : <=37. The reference range was not used to interpr et this result as reji l/abnormal. [facility] HospitalWhcoersFKLEKQVQO4463-52-01 22:50:00 Test Item Value Reference Range Interpretation Comments Alk Phos (test code = Alk Phos) 67 39-136 N [facility] HospitalNrpobldHDZSUHALQ4198-84-70 22:50:00 Test Item Value Reference Range Interpretation Comments Albumin Lvl (test code = Albumin Lvl) 4.4 3.5-5.0 N [facility] HospitalStjovgjBGWDPILYE6468-58-63 22:50:00 Test Item Value Reference Range Interpretation Comments Calcium Lvl (test code = Calcium Lvl) 9.9 8.5-10.5 N [facility] HospitalXqdhdayPYUGHGXTCN4328-79-96 22:50:00 Test Item Value Reference Range Interpretation Comments MPV (test code = MPV) 11.8 7.4-10.4 H [facility] HospitalCoxpjpgRIMRQALZFS6629-82-20 22:50:00 Test Item Value Reference Range Interpretation Comments MCHC (test code = MCHC) 35.9 32.0-36.0 N [facility] HospitalGrqbvusWXGQHLTAEE2709-59-16 22:50:00 Test Item Value Reference Range Interpretation Comments MCH (test code = MCH) 31.2 pg 27.0-31.0 H [facility] HospitalYhsubxiDMOYAQLJKU3777-68-88 22:50:00 Test Item Value Reference Range Interpretation Comments Platelet (test code = Platelet) 189 133-450 N [facility] HospitalVeajotrZCJRVVCUAL0302-31-26 22:50:00 Test Item Value Reference Range Interpretation Comments RDW (test code = RDW) 13.1 11.5-14.5 N [facility] HospitalHywwerlBJOFRZYOTJ0234-87-52 22:50:00 Test Item Value Reference Range Interpretation Comments Hct (test code = Hct) 40.7 36.0-48.0 N [facility] HospitalUcjfqdhSBSEORLRGG4970-76-71 22:50:00 Test Item Value Reference Range Interpretation Comments Hgb (test code = Hgb) 14.6 12.0-16.0 N [facility] HospitalYyjaavgICSTHTQSDU8170-94-87 22:50:00 Test Item Value Reference Range Interpretation Comments MCV (test code = MCV) 87.0 81.0-99.0 N [facility] HospitalLwydimnDAABKSWGUM3132-52-81 22:50:00 Test Item Value Reference Range Interpretation Comments WBC (test code = WBC) 11.7 3.7-10.4 H [facility] HospitalTbgjtjhCKPXNAZXOS8951-51-30 22:50:00 Test Item Value Reference Range Interpretation Comments RBC (test code = RBC) 4.68 4.20-5.40 N [facility] HospitalNtnelxbWAEKRYZOBN5464-62-46 22:50:00 Test Item Value Reference Range Interpretation Comments Basophils # (test code 0.0 See_Comment N [Aut omated message] The = Basophils #) system which generated this result tra nsmitted reference range : <=0.2. The reference r leo was not used to int erpret this result as normal/abnormal . [facility] HospitalTdyawqjSQJHPYMYEV0361-03-50 22:50:00 Test Item Value Reference Range Interpretation Comments Basophils (test code = 0.2 See_Comment N [Aut omated message] The Basophils) system which ge nerated this result tra nsmitted reference range : <=1.0. The reference r leo was not used to int erpret this result as normal/abnormal . [facility] HospitalCkqujaiTSFZQJTSMN1698-89-10 22:50:00 Test Item Value Reference Range Interpretation Comments Eosinophils # (test code 0.0 See_Comment N [A utomated message] The = Eosinophils #) system whic h generated this result tra nsmitted reference range : <=0.5. The reference r leo was not used to int erpret this result as normal/abnormal . [facility] HospitalHblkbpiYDPJDNCLHP3058-83-35 22:50:00 Test Item Value Reference Range Interpretation Comments Monocytes # (test code 0.4 See_Comment N [Aut omated message] The = Monocytes #) system which generated this result tra nsmitted reference range : <=0.8. The reference r leo was not used to int erpret this result as normal/abnormal . [facility] HospitalZglblbzBATLKATXMM4016-30-15 22:50:00 Test Item Value Reference Range Interpretation Comments Segs-Bands # (test code = Segs-Bands #) 10.6 1.5-8.1 H [facility] HospitalPgcaenzREYQUWDHEJ8017-76-35 22:50:00 Test Item Value Reference Range Interpretation Comments Lymphocytes # (test code = Lymphocytes 0.7 1.0-5.5 L #) [facility] HospitalIepofpcAYLMQCELGQ6752-19-01 22:50:00 Test Item Value Reference Range Interpretation Comments Monocytes (test code = Monocytes) 3.4 2.0-12.0 N [facility] HospitalAqbrxkcDVCODOIXQO3826-04-93 22:50:00 Test Item Value Reference Range Interpretation Comments Plt Morph (test code = Normal (03/14/2012 N Plt Morph) 17:50:00) [facility] HospitalAfhlbreUWNZXQYYPZ6659-81-23 22:50:00 Test Item Value Reference Range Interpretation Comments Lymphocytes (test code = Lymphocytes) 6.0 20.0-40.0 L [facility] HospitalJlqzidjKEMOZFDGAT7681-57-11 22:50:00 Test Item Value Reference Range Interpretation Comments Eosinophils (test code = 0.0 See_Comment N [A utomated message] The Eosinophils) system which ge nerated this result tra nsmitted reference range : <=4.0. The reference r leo was not used to int erpret this result as normal/abnormal . [facility] HospitalFdjgkujKFSWBKXWZQ4328-97-73 22:50:00 Test Item Value Reference Range Interpretation Comments Segs (test code = Segs) 90.4 45.0-75.0 H [facility]YsctuesYPFKCPNPWR3078-70-21 22:50:00 Test Item Value Reference Range Interpretation Comments RBC Morph (test code = Normal (03/14/2012 N RBC Morph) 17:50:00) [facility] GLUCOSE YHKXTJE1274-77-25 23:43:00 Test Item Value Reference Range Interpretation Comments Gluc POC Lifscn (test code = Gluc POC 167 70-99 H Lifscn) [facility] GLUCOSE WOGENLR3079-89-92 23:43:00 Test Item Value Reference Range Interpretation Comments Comment1 (test code = Comment1) Notify TABATHA/ [facility] GLUCOSE KKXURTU8564-96-16 23:43:00 Test Item Value Reference Range Interpretation Comments Comment2 (test code = Comment2) Sliding Scale [facility] GLUCOSE SDWLDOY2529-99-01 17:40:00 Test Item Value Reference Range Interpretation Comments Gluc POC Lifscn (test code = Gluc POC 189 70-99 H Lifscn) [facility] GLUCOSE DEOWQUU1960-93-02 17:40:00 Test Item Value Reference Range Interpretation Comments Comment1 (test code = Comment1) Notify RN/ [facility] GLUCOSE IBWDBVC0710-65-10 17:40:00 Test Item Value Reference Range Interpretation Comments Comment2 (test code = Comment2) Sliding Scale [facility] GLUCOSE UHOPAGC0763-37-01 13:34:00 Test Item Value Reference Range Interpretation Comments Comment2 (test code = Comment2) Sliding Scale [facility] GLUCOSE FYABRPT7622-80-08 13:34:00 Test Item Value Reference Range Interpretation Comments Gluc POC Lifscn (test code = Gluc POC 110 70-99 H Lifscn) [facility] GLUCOSE ZGCVOWG7491-67-28 13:34:00 Test Item Value Reference Range Interpretation Comments Comment1 (test code = Comment1) Not[facility] TABATHA/ [facility]GryybipSLQEUQRQU2035-68-51 00:00:00 Test Item Value Reference Range Interpretation Comments U Preg (test code = U Negative (11/28/2011 N Preg) 19:00:00) [facility]landQrxovjyDJKXOOJJII5672-11-93 00:00:00 Test Item Value Reference Range Interpretation Comments Micro? (test code = Performed (11/28/2011 N Micro?) 19:00:00) [facility]VmjxvbkQJRGRJZPVH0105-66-05 00:00:00 Test Item Value Reference Range Interpretation Comments UA Sq Epi (test code Occasional /LPF N = UA Sq Epi) (11/28/2011 19:00:00) [facility]UndidkgKDATLOQRFU4704-78-92 00:00:00 Test Item Value Reference Range Interpretation Comments UA RBC (test None Seen See_Comment N [Automated mes pastor] code = UA RBC) (11/28/2011 The system wh ich 19:00:00) generated this result transmitted ref erence range: <=2. The reference range was not used to int erpret this result as normal/abnormal . [facility]anoSixerxaTZGVEBPFSG5583-92-82 00:00:00 Test Item Value Reference Range Interpretation Comments UA WBC (test code Occasional See_Comment [Automate d message] The = UA WBC) system which ge nerated this result tra nsmitted reference range : <=5. The reference range was not used to interpr et this result as normal/abnormal . [facility] AustinDrrutpqMFUHWIIMRL4514-11-78 00:00:00 Test Item Value Reference Range Interpretation Comments UA Protein (test code Negative mg/dL N = UA Protein) (11/28/2011 19:00:00) [facility]anoOacdaufREHVXRVRPZ4439-06-31 00:00:00 Test Item Value Reference Range Interpretation Comments UA pH (test code = UA pH) 7.0 1 5.0-8.0 N [facility] AustinIqxbrcwSKAESNLIZQ4203-54-44 00:00:00 Test Item Value Reference Range Interpretation Comments UA Spec Grav (test code = UA Spec 1.020 1 N Grav) [facility] AustinReorttcXHKEGMVICN8761-23-33 00:00:00 Test Item Value Reference Range Interpretation Comments UA Turbidity (test code = Clear (11/28/2011 N UA Turbidity) 19:00:00) [facility]anoJbjoqoeNKMPDAMIFQ2299-47-56 00:00:00 Test Item Value Reference Range Interpretation Comments UA Color (test code = Yellow *NA*(11/28/2011 UA Color) 19:00:00) [facility] AustinSeovfoxROKQOXFAPQ1312-90-00 00:00:00 Test Item Value Reference Range Interpretation Comments UA Urobilinogen (test code = UA 0.2 0.1-1.0 N Urobilinogen) [facility] AustinOriqgvyTHNGKKUMYH1935-12-60 00:00:00 Test Item Value Reference Range Interpretation Comments UA Blood (test code = Negative (11/28/2011 N UA Blood) 19:00:00) [facility] AustinKfgmsjoKLHTPNGEXJ8951-50-44 00:00:00 Test Item Value Reference Range Interpretation Comments UA Bili (test code = Negative *NA*(11/28/2011 UA Bili) 19:00:00) [facility]FoqdtxvYVJXLTBDWP7104-67-35 00:00:00 Test Item Value Reference Range Interpretation Comments UA Ketones (test code = >=80 mg/dL A UA Ketones) *ABN*(11/28/2011 19:00:00) [facility] AustinYrcgnpsNAXPSECLES7967-98-09 00:00:00 Test Item Value Reference Range Interpretation Comments UA Glucose (test code = >=1000 mg/dL A UA Glucose) *ABN*(11/28/2011 19:00:00) [facility]DoapllvTLYDZXXVZH7631-41-95 00:00:00 Test Item Value Reference Range Interpretation Comments UA Nitrite (test code Negative (11/28/2011 N = UA Nitrite) 19:00:00) [facility]aleYhuqbaxKNZRNDQFXQ4044-70-06 00:00:00 Test Item Value Reference Range Interpretation Comments UA Leuk Est (test Negative (11/28/2011 N code = UA Leuk Est) 19:00:00) [facility]VgvhuzrNJWQZPCBI4973-81-70 20:41:00 Test Item Value Reference Range Interpretation Comments pO2 Roberth (test code = pO2 Roberth) 60 20-49 H [facility] HospitalDyhjrlcUPLLVBJDJ6495-53-67 20:41:00 Test Item Value Reference Range Interpretation Comments pCO2 Roberth (test code = pCO2 Roberth) 41 38-52 N [facility] HospitalAknooupOVXADPXVB1994-11-35 20:41:00 Test Item Value Reference Range Interpretation Comments pH Roberth (test code = pH Roberth) 7.45 7.28-7.42 H [facility] HospitalZmkjenzZWSEGMNHQ0540-35-78 20:41:00 Test Item Value Reference Range Interpretation Comments Temp Roberth (test code = Temp Roberth) 37.0 [facility] HospitalYhbirtpITQPXPVEA4191-90-33 20:41:00 Test Item Value Reference Range Interpretation Comments O2 Sat Roberth (test code = O2 Sat Roberth) 92.0 40.0-70.0 H [facility] HospitalSfyawyfXQKJQIHSE2450-51-23 20:41:00 Test Item Value Reference Range Interpretation Comments BE Roberth (test code = 4 See_Comment H [Automa rohit message] The BE Roberth) system which ge nerated this result transmit rohit reference range : <=2. The reference range was not used to interpr et this result as reji l/abnormal. [facility] HospitalWsrdgvuNNLFWGZTD0848-28-66 20:41:00 Test Item Value Reference Range Interpretation Comments HCO3 Roberth (test code = HCO3 Roberth) 28.5 22.0-26.0 H [facility] HospitalDuxevcdNWBEIHPKE0367-15-13 20:00:00 Test Item Value Reference Range Interpretation Comments Lactic Acid Lvl (test code = Lactic 1.6 0.5-2.2 N Acid Lvl) [facility] HospitalCcebtjmGOKUCPITN4278-58-49 20:00:00 Test Item Value Reference Range Interpretation Comments Lipase Lvl (test code = Lipase Lvl) 125 73-393 N [facility] HospitalVtdrpwaWKPHTRERA0388-80-78 20:00:00 Test Item Value Reference Range Interpretation Comments Albumin Lvl (test code = Albumin Lvl) 4.2 3.5-5.0 N [facility] HospitalDuktcpvHDHGULTYW9267-63-05 20:00:00 Test Item Value Reference Range Interpretation Comments CO2 (test code = CO2) 23 24-32 L [facility] HospitalUzrpqrzPFDREAHDI0296-85-54 20:00:00 Test Item Value Reference Range Interpretation Comments Chloride Lvl (test code = Chloride Lvl) 98 95-109 N [facility] HospitalSeuhsneEBNWZVUHI2114-57-58 20:00:00 Test Item Value Reference Range Interpretation Comments Potassium Lvl (test code = Potassium 3.8 3.5-5.1 N Lvl) [facility] HospitalOgdomurFSXDZGCLT6054-29-55 20:00:00 Test Item Value Reference Range Interpretation Comments Sodium Lvl (test code = Sodium Lvl) 138 135-145 N [facility] HospitalAusgrihKMMPEMNZD0287-98-71 20:00:00 Test Item Value Reference Range Interpretation Comments Creatinine Lvl (test code = Creatinine 0.7 0.5-1.4 N Lvl) [facility] HospitalUyvpmbrRCEDSFNMH7777-79-25 20:00:00 Test Item Value Reference Range Interpretation Comments BUN (test code = BUN) 9 7-22 N [facility] HospitalOhtrextLKOSUIANG4855-57-01 20:00:00 Test Item Value Reference Range Interpretation Comments Glucose Lvl (test code = Glucose Lvl) 269 70-99 H [facility] HospitalYhefoieDCRTTHAEP7541-15-32 20:00:00 Test Item Value Reference Range Interpretation Comments B/C Ratio (test code = B/C Ratio) 13 6-25 N [facility] HospitalKmwujuaYPPHDHRZO4812-87-27 20:00:00 Test Item Value Reference Range Interpretation Comments AGAP (test code = AGAP) 20.8 10.0-20.0 H [facility] HospitalPpukgxfMKIRZGXSV7004-89-75 20:00:00 Test Item Value Reference Range Interpretation Comments Calcium Lvl (test code = Calcium Lvl) 9.3 8.5-10.5 N [facility] HospitalGcapakyFXDCSJPJZ5649-79-38 20:00:00 Test Item Value Reference Range Interpretation Comments Total Protein (test code = Total 6.7 6.4-8.4 N Protein) [facility] HospitalIxowhvhGWIQWIRYQ0600-86-54 20:00:00 Test Item Value Reference Range Interpretation Comments A/G Ratio (test code = A/G Ratio) 1.7 0.7-1.6 H [facility] HospitalRvzozqgCHVHTOTIS3988-24-91 20:00:00 Test Item Value Reference Range Interpretation Comments Globulin (test code = Globulin) 2.5 2.0-4.0 N [facility] HospitalJduesgxKQDNKALBW1206-89-48 20:00:00 Test Item Value Reference Range Interpretation Comments AST (test code = AST) 18 See_Comment N [Auto mated message] The system which ge nerated this result transmit rohit reference range : <=37. The reference range was not used to interpr et this result as reji l/abnormal. [facility] HospitalFvxdwsmIRZWMQSJG6404-19-38 20:00:00 Test Item Value Reference Range Interpretation Comments Alk Phos (test code = Alk Phos) 62 39-136 N [facility] HospitalTttjucgCSYJNOJBR5270-53-57 20:00:00 Test Item Value Reference Range Interpretation Comments ALT (test code = ALT) 32 See_Comment N [Auto mated message] The system which ge nerated this result transmit rohit reference range : <=65. The reference range was not used to interpr et this result as reji l/abnormal. [facility] HospitalCqfeiggBCQMNTZTI8528-73-00 20:00:00 Test Item Value Reference Range Interpretation Comments Bili Total (test code = Bili Total) 0.7 0.2-1.3 N [facility] HospitalGskqfclGQTYYHLSKK2372-67-03 20:00:00 Test Item Value Reference Range Interpretation Comments Anisocyte (test code = 1+ *ABN*(11/28/2011 A Anisocyte) 15:00:00) [facility] HospitalVayvfleVXBASMHSSL6910-60-56 20:00:00 Test Item Value Reference Range Interpretation Comments Monocytes # (test code 0.1 See_Comment N [Aut omated message] The = Monocytes #) system which generated this result tra nsmitted reference range : <=0.8. The reference r leo was not used to int erpret this result as normal/abnormal . [facility] HospitalOphgsrhWOFWLNGUFI3587-39-93 20:00:00 Test Item Value Reference Range Interpretation Comments Eosinophils # (test code 0.0 See_Comment N [A utomated message] The = Eosinophils #) system whic h generated this result tra nsmitted reference range : <=0.5. The reference r leo was not used to int erpret this result as normal/abnormal . [facility] HospitalBzxyxcmMGKIQMEFYB6431-75-90 20:00:00 Test Item Value Reference Range Interpretation Comments Basophils # (test code 0.0 See_Comment N [Aut omated message] The = Basophils #) system which generated this result tra nsmitted reference range : <=0.2. The reference r leo was not used to int erpret this result as normal/abnormal . [facility] HospitalAxffbhiFSSJGQYDGT3440-61-36 20:00:00 Test Item Value Reference Range Interpretation Comments Neut Vac (test code = Slight *ABN*(11/28/2011 A Neut Vac) 15:00:00) [facility] HospitalKetpglvVIPCOCAYKO8785-94-40 20:00:00 Test Item Value Reference Range Interpretation Comments Large Plt (test code = Slight *ABN*(11/28/2011 A Large Plt) 15:00:00) [facility] HospitalKvxrkkkVFXCWZPTHJ9978-07-68 20:00:00 Test Item Value Reference Range Interpretation Comments Segs-Bands # (test code = Segs-Bands #) 5.7 1.5-8.1 N [facility] HospitalHeugftmQGRFCVMCAY9523-20-89 20:00:00 Test Item Value Reference Range Interpretation Comments Lymphocytes # (test code = Lymphocytes 0.8 1.0-5.5 L #) [facility] HospitalCskqmywJFEMNHXNUS0982-74-69 20:00:00 Test Item Value Reference Range Interpretation Comments Eosinophils (test code = 0.2 See_Comment N [A utomated message] The Eosinophils) system which ge nerated this result tra nsmitted reference range : <=4.0. The reference r leo was not used to int erpret this result as normal/abnormal . [facility] HospitalRjtbcckVSVGJKNCWL1133-04-83 20:00:00 Test Item Value Reference Range Interpretation Comments Basophils (test code = 0.0 See_Comment N [Aut omated message] The Basophils) system which ge nerated this result tra nsmitted reference range : <=1.0. The reference r leo was not used to int erpret this result as normal/abnormal . [facility] HospitalEthoowxSRETADAFQQ6952-42-36 20:00:00 Test Item Value Reference Range Interpretation Comments Monocytes (test code = Monocytes) 1.9 2.0-12.0 L [facility] HospitalYkifjngXSLXRCVLTM2787-90-86 20:00:00 Test Item Value Reference Range Interpretation Comments Segs (test code = Segs) 86.2 45.0-75.0 H [facility] HospitalDrvvifrEMTQRYQENL0033-24-98 20:00:00 Test Item Value Reference Range Interpretation Comments Lymphocytes (test code = Lymphocytes) 11.7 20.0-40.0 L [facility] HospitalEhhpsekAAIHECYFML9964-03-54 20:00:00 Test Item Value Reference Range Interpretation Comments MPV (test code = MPV) 10.8 7.4-10.4 H [facility] HospitalBmqhqbgYWXXTFCHLX1944-11-09 20:00:00 Test Item Value Reference Range Interpretation Comments Platelet (test code = Platelet) 161 133-450 N [facility] HospitalZhexywfSNVPLDXCJE8816-93-07 20:00:00 Test Item Value Reference Range Interpretation Comments MCHC (test code = MCHC) 35.6 32.0-36.0 N [facility] HospitalIinohmaXYEUXXHLXG1022-55-30 20:00:00 Test Item Value Reference Range Interpretation Comments RDW (test code = RDW) 12.4 11.5-14.5 N [facility] HospitalFqioelnWKZBYXYEHK0979-56-70 20:00:00 Test Item Value Reference Range Interpretation Comments MCH (test code = MCH) 30.7 pg 27.0-31.0 N [facility] HospitalLpxhstxYKHKHOMDHI6242-72-39 20:00:00 Test Item Value Reference Range Interpretation Comments MCV (test code = MCV) 86.1 81.0-99.0 N [facility] HospitalMviqbwjDWZECQQRNJ0554-24-81 20:00:00 Test Item Value Reference Range Interpretation Comments Hct (test code = Hct) 33.6 36.0-48.0 L [facility] HospitalVrdfkisAHJVUOKEOB8829-84-58 20:00:00 Test Item Value Reference Range Interpretation Comments Hgb (test code = Hgb) 12.0 12.0-16.0 N [facility] HospitalYxodoqtDXHAJZJSOA5120-46-63 20:00:00 Test Item Value Reference Range Interpretation Comments RBC (test code = RBC) 3.90 4.20-5.40 L [facility] HospitalYyaziwxFLDOLMVYIV7083-86-86 20:00:00 Test Item Value Reference Range Interpretation Comments WBC (test code = WBC) 6.6 3.7-10.4 N [facility] HospitalDhxdtckZIHTKCEPG9329-95-49 19:51:00 Test Item Value Reference Range Interpretation Comments UDS Note (test code = See Note UDS Note) 5*NA*(11/28/2011 14:51:00) [facility] HospitalWdifdkiVFAHETUKO7121-53-56 19:51:00 Test Item Value Reference Range Interpretation Comments U Phencyc Scr (test Negative code = U Phencyc Scr) *NA*(11/28/2011 14:51:00) [facility] HospitalKnrzlhdEESOMKSDV7425-95-75 19:51:00 Test Item Value Reference Range Interpretation Comments U Kelly Scr (test code Negative *NA*(11/28/2011 = U Kelly Scr) 14:51:00) [facility] HospitalYdoeegwKAZHPFYJI2320-33-72 19:51:00 Test Item Value Reference Range Interpretation Comments U Amph Scr (test code Negative *NA*(11/28/2011 = U Amph Scr) 14:51:00) [facility] HospitalRoycpgeAOKXWBFNA0386-65-33 19:51:00 Test Item Value Reference Range Interpretation Comments U Opiate Scr (test Negative code = U Opiate Scr) *NA*(11/28/2011 14:51:00) [facility]aleBnmbnngWXCTXRXDD2840-20-15 19:51:00 Test Item Value Reference Range Interpretation Comments U Cocaine Scr (test Negative code = U Cocaine Scr) *NA*(11/28/2011 14:51:00) [facility] HospitalSvmakpnTOCGPQPLN8917-82-15 19:51:00 Test Item Value Reference Range Interpretation Comments U Cannab Scr (test Negative code = U Cannab Scr) *NA*(11/28/2011 14:51:00) [facility] HospitalKznswtjCFMSLGVLF5533-58-81 19:51:00 Test Item Value Reference Range Interpretation Comments U Benzodia Scr (test Negative code = U Benzodia Scr) *NA*(11/28/2011 14:51:00) [facility] GLUCOSE AVMIUDH3402-91-92 16:20:00 Test Item Value Reference Range Interpretation Comments Comment1 (test code = Comment1) Notify RN/MD [facility] GLUCOSE QHFJRWL7597-83-37 16:20:00 Test Item Value Reference Range Interpretation Comments Gluc POC Lifscn (test code = Gluc POC 328 70-99 H Lifscn) [facility] HospitalGhfimdpOKLUYIOWB4519-67-09 15:30:00 Test Item Value Reference Range Interpretation Comments U Preg (test code = U Negative (09/18/2011 N Preg) 10:30:00) [facility]aleGjmuurwVJJINVLEPG0836-34-04 15:30:00 Test Item Value Reference Range Interpretation Comments UA WBC (test code = UA None Seen (09/18/2011 N WBC) 10:30:00) [facility]aleSufhcugPSZRXSLQFQ7057-99-48 15:30:00 Test Item Value Reference Range Interpretation Comments UA RBC (test None Seen See_Comment N [Automated mes pastor] code = UA RBC) (09/18/2011 The system ich 10:30:00) generated this result transmitted ref erence range: <=2. The reference range was not used to int erpret this result as normal/abnormal . [facility]VfqpqmoRBORFLVXBZ8403-44-38 15:30:00 Test Item Value Reference Range Interpretation Comments UA Bacteria (test code = None Seen (09/18/2011 N UA Bacteria) 10:30:00) [facility]aleBdfrfpfWZWMWXJQCD4602-28-13 15:30:00 Test Item Value Reference Range Interpretation Comments UA Amorph Destiny (test Few /HPF A code = UA Amorph Destiny) *ABN*(09/18/2011 10:30:00) [facility]RwyrsecABSODANCRJ3379-04-84 15:30:00 Test Item Value Reference Range Interpretation Comments Micro? (test code = Performed (09/18/2011 N Micro?) 10:30:00) [facility]anoNyigayjMXEIPVBJDI8956-14-49 15:30:00 Test Item Value Reference Range Interpretation Comments UA Sq Epi (test code = Rare /LPF (09/18/2011 N UA Sq Epi) 10:30:00) [facility]JeluxkbETYAAOEXJE0996-89-46 15:30:00 Test Item Value Reference Range Interpretation Comments UA Ketones (test code = 15 mg/dL A UA Ketones) *ABN*(09/18/2011 10:30:00) [facility]anoTmkflwkOLSCIDTWEC8887-90-04 15:30:00 Test Item Value Reference Range Interpretation Comments UA Glucose (test code = >=1000 mg/dL A UA Glucose) *ABN*(09/18/2011 10:30:00) [facility]anoPelnwgzGXLUVHLOWP4109-63-08 15:30:00 Test Item Value Reference Range Interpretation Comments UA Protein (test code = Trace A UA Protein) *ABN*(09/18/2011 10:30:00) [facility]anoVxoiuycLAKHHWVIGD7236-41-00 15:30:00 Test Item Value Reference Range Interpretation Comments UA Urobilinogen (test code = UA 0.2 0.1-1.0 N Urobilinogen) [facility]anoGuysffjPLQAGUSZDZ5034-67-79 15:30:00 Test Item Value Reference Range Interpretation Comments UA Blood (test code = Negative (09/18/2011 N UA Blood) 10:30:00) [facility] AustinLomqsogREQBLUXEKX7772-94-29 15:30:00 Test Item Value Reference Range Interpretation Comments UA Bili (test code = Negative *NA*(09/18/2011 UA Bili) 10:30:00) [facility]anoBsuzgvfMJOTVSUXWK6645-87-82 15:30:00 Test Item Value Reference Range Interpretation Comments UA Leuk Est (test Negative (09/18/2011 N code = UA Leuk Est) 10:30:00) [facility]anoPoeifcqOOXTALVZKD9906-55-97 15:30:00 Test Item Value Reference Range Interpretation Comments UA Nitrite (test code Negative (09/18/2011 N = UA Nitrite) 10:30:00) [facility] AustinJmdprooNCVCSMOGYB2236-10-03 15:30:00 Test Item Value Reference Range Interpretation Comments UA pH (test code = UA pH) 7.5 1 5.0-8.0 N [facility] AustinPudcuwtRAZHUNZAHQ5729-39-58 15:30:00 Test Item Value Reference Range Interpretation Comments UA Spec Grav (test code = UA Spec 1.010 1 N Grav) [facility] AustinTrlhybzOJDWOXAEOC7218-67-53 15:30:00 Test Item Value Reference Range Interpretation Comments UA Turbidity (test code Slight Cloudy N = UA Turbidity) (09/18/2011 10:30:00) [facility]anoYdvgdzlNULKYCUQMI8026-96-79 15:30:00 Test Item Value Reference Range Interpretation Comments UA Color (test code = Yellow *NA*(09/18/2011 UA Color) 10:30:00) [facility] HospitalTfvnoghCFPOAPQJI7030-59-52 14:07:00 Test Item Value Reference Range Interpretation Comments Phosphorus (test code = Phosphorus) 4.4 2.5-4.5 N [facility] HospitalHtisltmNLEWDJYSE3570-93-40 14:07:00 Test Item Value Reference Range Interpretation Comments Magnesium Lvl (test code = Magnesium 1.6 1.8-2.4 L Lvl) [facility] GLUCOSE UAVRJLF5048-42-93 14:01:00 Test Item Value Reference Range Interpretation Comments Gluc POC Lifscn (test code = Gluc POC no gt 70-99 A Lifscn) [facility] HospitalYasstbsEDGGFFZCK1448-52-82 13:52:00 Test Item Value Reference Range Interpretation Comments pO2 Roberth (test code = pO2 Roberth) 24 20-49 N [facility] HospitalQpllkklCNXKYIMNR4012-11-54 13:52:00 Test Item Value Reference Range Interpretation Comments HCO3 Roberth (test code = HCO3 Roberth) 32.0 22.0-26.0 H [facility] HospitalVricitrZIAUUKBEC9765-15-47 13:52:00 Test Item Value Reference Range Interpretation Comments pCO2 Roberth (test code = pCO2 Roberth) 44 38-52 N [facility] HospitalUbpiybrJCTNJIGPQ2289-33-04 13:52:00 Test Item Value Reference Range Interpretation Comments BE Roberth (test code = 7 See_Comment H [Automa rohit message] The BE Roberth) system which ge nerated this result transmit rohit reference range : <=2. The reference range was not used to interpr et this result as reji l/abnormal. [facility] HospitalGhwifoxBRFVPZZGI8161-95-82 13:52:00 Test Item Value Reference Range Interpretation Comments O2 Sat Roberth (test code = O2 Sat Roberth) 48.0 40.0-70.0 N [facility] HospitalZsowgohMFHVAHXKA0786-86-01 13:52:00 Test Item Value Reference Range Interpretation Comments Temp Roberth (test code = Temp Roberth) 37.0 [facility] HospitalNzpyyjmYIGEPPTUS3550-74-61 13:52:00 Test Item Value Reference Range Interpretation Comments pH Roberth (test code = pH Roberth) 7.47 7.28-7.42 H [facility] HospitalFcbwhqlVGWLQOFNF0643-39-59 13:52:00 Test Item Value Reference Range Interpretation Comments Calcium Lvl (test code = Calcium Lvl) 10.1 8.5-10.5 N [facility] HospitalOcnjwbaPQVWZJYDF7927-72-42 13:52:00 Test Item Value Reference Range Interpretation Comments Chloride Lvl (test code = Chloride Lvl) 92 95-109 L [facility] HospitalCmnfajiIWNKBFWER9008-43-49 13:52:00 Test Item Value Reference Range Interpretation Comments CO2 (test code = CO2) 30 24-32 N [facility] HospitalOwxzqltRYYOMEXRN3278-04-79 13:52:00 Test Item Value Reference Range Interpretation Comments Potassium Lvl (test code = Potassium 3.5 3.5-5.1 N Lvl) [facility] HospitalQzudzphEXAJMBOED3096-14-41 13:52:00 Test Item Value Reference Range Interpretation Comments Sodium Lvl (test code = Sodium Lvl) 133 135-145 L [facility] HospitalQdajgioLRTMPFLSQ1922-92-73 13:52:00 Test Item Value Reference Range Interpretation Comments Creatinine Lvl (test code = Creatinine 1.3 0.5-1.4 N Lvl) [facility] HospitalYbhmnhqYTVBXQLZN5987-29-16 13:52:00 Test Item Value Reference Range Interpretation Comments Glucose Lvl (test code = Glucose Lvl) 383 70-99 H [facility] HospitalAeudjjrEDXOMXEAP3033-37-80 13:52:00 Test Item Value Reference Range Interpretation Comments BUN (test code = BUN) 17 7-22 N [facility] HospitalAgbyfapPZSNSXOTX7464-72-52 13:52:00 Test Item Value Reference Range Interpretation Comments AGAP (test code = AGAP) 14.5 10.0-20.0 N [facility] HospitalUgfygejYWQBECOLCP8720-82-62 13:52:00 Test Item Value Reference Range Interpretation Comments MPV (test code = MPV) 12.0 7.4-10.4 H [facility] HospitalFzqlaowRWYRNRRYLP4442-95-33 13:52:00 Test Item Value Reference Range Interpretation Comments Platelet (test code = Platelet) 226 133-450 N [facility] HospitalXxysrhzHXIXWVEGCT1015-71-50 13:52:00 Test Item Value Reference Range Interpretation Comments MCHC (test code = MCHC) 33.7 32.0-36.0 N [facility] HospitalXxrokykMIRLLYUQYA0670-22-04 13:52:00 Test Item Value Reference Range Interpretation Comments MCH (test code = MCH) 28.5 pg 27.0-31.0 N [facility] HospitalNikvwwsFNHZZWGOIA5512-31-37 13:52:00 Test Item Value Reference Range Interpretation Comments RDW (test code = RDW) 15.1 11.5-14.5 H [facility] HospitalCqvkzxfFZICIEMDHY9509-84-40 13:52:00 Test Item Value Reference Range Interpretation Comments MCV (test code = MCV) 84.6 81.0-99.0 N [facility] HospitalJgobaamDDNMHNPEVZ8150-43-03 13:52:00 Test Item Value Reference Range Interpretation Comments Hct (test code = Hct) 36.4 36.0-48.0 N [facility] HospitalPlothlkRVZVCGXCMX8815-68-92 13:52:00 Test Item Value Reference Range Interpretation Comments Hgb (test code = Hgb) 12.3 12.0-16.0 N [facility] HospitalHuemuhdLRRQRWSKIG8897-14-62 13:52:00 Test Item Value Reference Range Interpretation Comments RBC (test code = RBC) 4.30 4.20-5.40 N [facility] HospitalJvkzpwyJFBKGYSZFB2414-30-96 13:52:00 Test Item Value Reference Range Interpretation Comments WBC (test code = WBC) 11.7 3.7-10.4 H [facility] HospitalIpvedraKHTBIWHAUR9922-06-94 13:52:00 Test Item Value Reference Range Interpretation Comments Monocytes (test code = Monocytes) 2.9 2.0-12.0 N [facility] HospitalYzokogbGSFBVUQBEI8153-29-81 13:52:00 Test Item Value Reference Range Interpretation Comments Eosinophils (test code = 0.2 See_Comment N [A utomated message] The Eosinophils) system which ge nerated this result tra nsmitted reference range : <=4.0. The reference r leo was not used to int erpret this result as normal/abnormal . [facility] HospitalWcynlndKFRSZOJLYP8711-71-28 13:52:00 Test Item Value Reference Range Interpretation Comments Basophils (test code = 0.0 See_Comment N [Aut omated message] The Basophils) system which ge nerated this result tra nsmitted reference range : <=1.0. The reference r leo was not used to int erpret this result as normal/abnormal . [facility] HospitalZaulybaXABHLKZMFF5881-87-24 13:52:00 Test Item Value Reference Range Interpretation Comments Eosinophils # (test code 0.0 See_Comment N [A utomated message] The = Eosinophils #) system wh h generated this result tra nsmitted reference range : <=0.5. The reference r leo was not used to int erpret this result as normal/abnormal . [facility] HospitalEkmnurhAPLRTWJHKK3190-29-08 13:52:00 Test Item Value Reference Range Interpretation Comments Monocytes # (test code 0.3 See_Comment N [Aut omated message] The = Monocytes #) system which generated this result tra nsmitted reference range : <=0.8. The reference r leo was not used to int erpret this result as normal/abnormal . [facility] HospitalSnrjvweIQJXXARTBO3527-15-26 13:52:00 Test Item Value Reference Range Interpretation Comments Segs (test code = Segs) 92.0 45.0-75.0 H [facility] HospitalPdignfrGRFSUMNQKB8503-07-58 13:52:00 Test Item Value Reference Range Interpretation Comments Lymphocytes (test code = Lymphocytes) 4.9 20.0-40.0 L [facility] HospitalUoamoetUHDFNLCVMA3508-94-95 13:52:00 Test Item Value Reference Range Interpretation Comments Spherocyte (test code = Rare A Spherocyte) *ABN*(09/18/2011 08:52:00) [facility] HospitalIjqtxieHMEIWHZYVY2898-09-66 13:52:00 Test Item Value Reference Range Interpretation Comments Large Plt (test code = Slight *ABN*(09/18/2011 A Large Plt) 08:52:00) [facility] HospitalGhpjnyuGBFTOKMLLA6330-99-62 13:52:00 Test Item Value Reference Range Interpretation Comments Microcyte (test code = 1+ *ABN*(09/18/2011 A Microcyte) 08:52:00) [facility]RtvxjnhKMUEEFPNPX1450-73-91 13:52:00 Test Item Value Reference Range Interpretation Comments Schistocyte (test code = Schistocyte) Rare [facility] HospitalTuvgrtjBFTICYVPZH9710-26-00 13:52:00 Test Item Value Reference Range Interpretation Comments Macrocyte (test code = 1+ *ABN*(09/18/2011 A Macrocyte) 08:52:00) [facility] HospitalSksjplzLRVBOVWQNW2870-25-37 13:52:00 Test Item Value Reference Range Interpretation Comments Lymphocytes # (test code = Lymphocytes 0.6 1.0-5.5 L #) [facility] HospitalUfksufaXMNWPCSBBH7077-80-16 13:52:00 Test Item Value Reference Range Interpretation Comments Segs-Bands # (test code = Segs-Bands #) 10.8 1.5-8.1 H [facility] HospitalWwlutsuKSCMCHTHBM4787-97-82 13:52:00 Test Item Value Reference Range Interpretation Comments Basophils # (test code 0.0 See_Comment N [Aut omated message] The = Basophils #) system which generated this result tra nsmitted reference range : <=0.2. The reference r leo was not used to int erpret this result as normal/abnormal . [facility] HospitalFzgrhsfUQFFATRPQY4589-80-19 13:52:00 Test Item Value Reference Range Interpretation Comments Anisocyte (test code = 1+ *ABN*(09/18/2011 A Anisocyte) 08:52:00) [facility]qhcamxVLBUCRFCXD6265-89-76 13:52:00 Test Item Value Reference Range Interpretation Comments CDC-HIV 1/2 Ab (test Negative *NA*(09/18/2011 code = CDC-HIV 1/2 08:52:00) Ab) [facility] GLUCOSE [id number] 17:34:00 Test Item Value Reference Range Interpretation Comments Gluc POC Lifscn (test code = Gluc POC 215 70-99 H Lifscn) [facility] GLUCOSE WBDYFLZ0860-91-25 17:34:00 Test Item Value Reference Range Interpretation Comments Comment1 (test code = Comment1) Notify RN/ [facility] GLUCOSE RWSHUDD2954-39-62 11:43:00 Test Item Value Reference Range Interpretation Comments Comment1 (test code = Comment1) Notify RN/ [facility] GLUCOSE MAFWPCG0876-09-27 11:43:00 Test Item Value Reference Range Interpretation Comments Gluc POC Lifscn (test code = Gluc POC 91 65-110 N Lifscn) [facility] GLUCOSE JTZVDBJ3558-74-28 02:45:00 Test Item Value Reference Range Interpretation Comments Comment1 (test code = Comment1) Notify RN/ [facility] GLUCOSE IRHBUUK6207-20-81 02:45:00 Test Item Value Reference Range Interpretation Comments Gluc POC Lifscn (test code = Gluc POC 148 65-110 H Lifscn) [facility]VwnpgtlKHKRPWKDN0002-25-75 08:47:00 Test Item Value Reference Range Interpretation Comments Sodium Lvl (test code = Sodium Lvl) 143 135-145 N [facility] HospitalCmbbckyYIQGYREFA9800-62-50 08:47:00 Test Item Value Reference Range Interpretation Comments Glucose Lvl (test code = Glucose Lvl) 105 [facility] HospitalSitwmkjGDZUGFYXW2081-27-26 08:47:00 Test Item Value Reference Range Interpretation Comments CO2 (test code = CO2) 29 24-32 N [facility] HospitalHaazupnFLOLAOYHV4791-91-92 08:47:00 Test Item Value Reference Range Interpretation Comments Chloride Lvl (test code = Chloride Lvl) 103 95-109 N [facility] HospitalZbekahoUYJVFQHBJ4029-51-17 08:47:00 Test Item Value Reference Range Interpretation Comments BUN (test code = BUN) 10 7-22 N [facility] HospitalAutrbphCBELFWEUP8908-59-34 08:47:00 Test Item Value Reference Range Interpretation Comments Potassium Lvl (test code = Potassium 3.8 3.5-5.1 N Lvl) [facility] HospitalIaosafcKYHVGYGPQ8483-42-14 08:47:00 Test Item Value Reference Range Interpretation Comments Creatinine Lvl (test code = Creatinine 0.6 0.5-1.4 N Lvl) [facility] HospitalAtzgizuDRDKPREBI7560-56-87 08:47:00 Test Item Value Reference Range Interpretation Comments Calcium Lvl (test code = Calcium Lvl) 8.5 8.5-10.5 N [facility] HospitalOthzqyaOGYDBIUHU1824-34-55 08:47:00 Test Item Value Reference Range Interpretation Comments AGAP (test code = AGAP) 14.8 10.0-20.0 N [facility] HospitalEiodjpwOYZBJITALK9975-75-83 08:47:00 Test Item Value Reference Range Interpretation Comments MCH (test code = MCH) 28.9 pg 27.0-31.0 N [facility] HospitalFqjddctUTVXSVQMGM2348-53-99 08:47:00 Test Item Value Reference Range Interpretation Comments MCV (test code = MCV) 82.1 81.0-99.0 N [facility] HospitalGymmupyCPQSNEOXWS2723-88-03 08:47:00 Test Item Value Reference Range Interpretation Comments Hct (test code = Hct) 25.9 36.0-48.0 L [facility] HospitalZaabcdnAEFPVRDFIA3320-22-58 08:47:00 Test Item Value Reference Range Interpretation Comments Platelet (test code = Platelet) 233 133-450 N [facility] HospitalYiuvtupLXWYREZYTH6532-20-17 08:47:00 Test Item Value Reference Range Interpretation Comments RDW (test code = RDW) 14.5 11.5-14.5 N [facility] HospitalOuqwdooQJAVKIBXPV1840-06-41 08:47:00 Test Item Value Reference Range Interpretation Comments MCHC (test code = MCHC) 35.2 32.0-36.0 N [facility] HospitalEnmfmkxCKANBJNYTS1035-55-78 08:47:00 Test Item Value Reference Range Interpretation Comments Hgb (test code = Hgb) 9.1 12.0-16.0 L [facility] HospitalKxrnrwkRFDJLMIOCC8058-52-36 08:47:00 Test Item Value Reference Range Interpretation Comments RBC (test code = RBC) 3.15 4.20-5.40 L [facility] HospitalBfuekekHYESFHLZUV5668-97-43 08:47:00 Test Item Value Reference Range Interpretation Comments MPV (test code = MPV) 9.0 7.4-10.4 N [facility] HospitalOrsiqibPFZZKTFLEU9202-43-93 08:47:00 Test Item Value Reference Range Interpretation Comments WBC (test code = WBC) 6.3 3.7-10.4 N [facility] HospitalIzlirmcHEEABFHRWA7884-76-29 08:47:00 Test Item Value Reference Range Interpretation Comments Eosinophils # (test code 0.0 See_Comment N [A utomated message] The = Eosinophils #) system whic h generated this result tra nsmitted reference range : <=0.5. The reference r leo was not used to int erpret this result as normal/abnormal . [facility] HospitalNjxtgwuOQKDUWTCDU9369-59-62 08:47:00 Test Item Value Reference Range Interpretation Comments Basophils # (test code 0.0 See_Comment N [Aut omated message] The = Basophils #) system which generated this result tra nsmitted reference range : <=0.2. The reference r leo was not used to int erpret this result as normal/abnormal . [facility] HospitalMpwlainGUMIQGNXJP0224-82-26 08:47:00 Test Item Value Reference Range Interpretation Comments Segs-Bands # (test code = Segs-Bands #) 3.8 1.5-8.1 N [facility] HospitalGzfjpibXZMONKFNXJ5189-62-57 08:47:00 Test Item Value Reference Range Interpretation Comments Lymphocytes # (test code = Lymphocytes 2.0 1.0-5.5 N #) [facility] HospitalYqnxerxGVMDBVSSPG9478-18-45 08:47:00 Test Item Value Reference Range Interpretation Comments Basophils (test code = 0.5 See_Comment N [Aut omated message] The Basophils) system which ge nerated this result tra nsmitted reference range : <=1.0. The reference r leo was not used to int erpret this result as normal/abnormal . [facility] HospitalLsfhkroPXYMKPDNSZ4286-55-94 08:47:00 Test Item Value Reference Range Interpretation Comments Eosinophils (test code = 0.7 See_Comment N [A utomated message] The Eosinophils) system which ge nerated this result tra nsmitted reference range : <=4.0. The reference r leo was not used to int erpret this result as normal/abnormal . [facility] HospitalWlixizqMAGTKYQJMS1556-18-29 08:47:00 Test Item Value Reference Range Interpretation Comments Monocytes (test code = Monocytes) 6.2 2.0-12.0 N [facility] HospitalJxwltvnFDJTJURTZB1272-00-57 08:47:00 Test Item Value Reference Range Interpretation Comments Segs (test code = Segs) 61.1 45.0-75.0 N [facility] HospitalJtjmaxzXBJKAJIWEX0246-88-14 08:47:00 Test Item Value Reference Range Interpretation Comments Lymphocytes (test code = Lymphocytes) 31.5 20.0-40.0 N [facility] HospitalWzzkgicEPDCWOJWVG4548-46-58 08:47:00 Test Item Value Reference Range Interpretation Comments Monocytes # (test code 0.4 See_Comment N [Aut omated message] The = Monocytes #) system which generated this result tra nsmitted reference range : <=0.8. The reference r leo was not used to int erpret this result as normal/abnormal . [facility] HospitalJoprwyqXFMVBHNUQ3238-66-38 10:54:00 Test Item Value Reference Range Interpretation Comments CO2 (test code = CO2) 27 24-32 N [facility] HospitalOhzlvknJTPBEWJFV2178-41-36 10:54:00 Test Item Value Reference Range Interpretation Comments Chloride Lvl (test code = Chloride Lvl) 104 95-109 N [facility] HospitalZzuacjpZBQBMPKSD2663-55-62 10:54:00 Test Item Value Reference Range Interpretation Comments Creatinine Lvl (test code = Creatinine 0.5 0.5-1.4 N Lvl) [facility] HospitalItumwfrSKIKPDYUZ0546-64-39 10:54:00 Test Item Value Reference Range Interpretation Comments BUN (test code = BUN) 10 7-22 N [facility] HospitalMtankycENXCMFDCN2068-50-53 10:54:00 Test Item Value Reference Range Interpretation Comments Potassium Lvl (test code = Potassium 4.1 3.5-5.1 N Lvl) [facility] HospitalFivxgehOZOWEHFIX9392-75-96 10:54:00 Test Item Value Reference Range Interpretation Comments Sodium Lvl (test code = Sodium Lvl) 141 135-145 N [facility] HospitalOfprbdbPCTPCLULN9706-34-34 10:54:00 Test Item Value Reference Range Interpretation Comments Glucose Lvl (test code = Glucose Lvl) 83 [facility] HospitalHkbzcoeMDTJOIMZA5598-56-83 10:54:00 Test Item Value Reference Range Interpretation Comments Calcium Lvl (test code = Calcium Lvl) 8.4 8.5-10.5 L [facility] HospitalDzahecuWRZWGRDIT2101-78-51 10:54:00 Test Item Value Reference Range Interpretation Comments AGAP (test code = AGAP) 14.1 10.0-20.0 N [facility] HospitalZstlinzASWGAQUHRV5728-98-25 10:54:00 Test Item Value Reference Range Interpretation Comments Hct (test code = Hct) 35.5 36.0-48.0 L [facility] HospitalLplobyvQTPOYXLLWF9200-81-68 10:54:00 Test Item Value Reference Range Interpretation Comments WBC (test code = WBC) 4.7 3.7-10.4 N [facility] HospitalRncwfuwRFSUTJKYAT8999-94-94 10:54:00 Test Item Value Reference Range Interpretation Comments MCV (test code = MCV) 92.6 81.0-99.0 N [facility] HospitalRsqxpcrCZHMVGPWZS1158-09-02 10:54:00 Test Item Value Reference Range Interpretation Comments MCH (test code = MCH) 31.4 pg 27.0-31.0 H [facility] HospitalUttygujSLWANRLKLT4076-08-81 10:54:00 Test Item Value Reference Range Interpretation Comments RBC (test code = RBC) 3.84 4.20-5.40 L [facility] HospitalMmtxivkYAVQOERXHK5223-08-25 10:54:00 Test Item Value Reference Range Interpretation Comments Hgb (test code = Hgb) 12.1 12.0-16.0 N [facility] HospitalBysxqjzWXKHOIARDO7570-95-76 10:54:00 Test Item Value Reference Range Interpretation Comments Platelet (test code = Platelet) 287 133-450 N [facility] HospitalAxszqlkNUTNXDZNPE4344-24-62 10:54:00 Test Item Value Reference Range Interpretation Comments RDW (test code = RDW) 12.7 11.5-14.5 N [facility] HospitalDjeuodkOBZDSVITNA1504-38-02 10:54:00 Test Item Value Reference Range Interpretation Comments MCHC (test code = MCHC) 33.9 32.0-36.0 N [facility] HospitalDcbktzjANMKANKYJB7971-35-56 10:54:00 Test Item Value Reference Range Interpretation Comments MPV (test code = MPV) 7.2 7.4-10.4 L [facility] HospitalIjojojmQTHRWKNDLO1964-45-18 10:54:00 Test Item Value Reference Range Interpretation Comments INR (test code = INR) 0.95 0.85-1.17 N [facility] HospitalMzzfzwxSLVLKXFREZ8907-22-53 10:54:00 Test Item Value Reference Range Interpretation Comments PT (test code = PT) 12.7 s 12.0-14.7 N [facility] HospitalWikskzmAEHLVIXCCZ8149-38-04 10:54:00 Test Item Value Reference Range Interpretation Comments PTT (test code = PTT) 28.5 s 22.9-35.8 N [facility] HospitalLbbcxfuVTQDKFDDMY3945-35-60 10:54:00 Test Item Value Reference Range Interpretation Comments Eosinophils # (test code 0.1 See_Comment N [A utomated message] The = Eosinophils #) system whic h generated this result tra nsmitted reference range : <=0.5. The reference r leo was not used to int erpret this result as normal/abnormal . [facility] HospitalBarhfhzUINSBNXEXG5958-29-14 10:54:00 Test Item Value Reference Range Interpretation Comments Basophils # (test code 0.0 See_Comment N [Aut omated message] The = Basophils #) system which generated this result tra nsmitted reference range : <=0.2. The reference r leo was not used to int erpret this result as normal/abnormal . [facility] HospitalUwczffcUBONQTHEWR3391-19-06 10:54:00 Test Item Value Reference Range Interpretation Comments Basophils (test code = 0.4 See_Comment N [Aut omated message] The Basophils) system which ge nerated this result tra nsmitted reference range : <=1.0. The reference r leo was not used to int erpret this result as normal/abnormal . [facility] HospitalVsgkvycLRZQDRAOJW6063-00-14 10:54:00 Test Item Value Reference Range Interpretation Comments Segs-Bands # (test code = Segs-Bands #) 2.1 1.5-8.1 N [facility] HospitalSbtnrezWIMIMBEBTZ9571-22-22 10:54:00 Test Item Value Reference Range Interpretation Comments Monocytes (test code = Monocytes) 9.0 2.0-12.0 N [facility] HospitalBffidbfTWRKOBHKBJ4890-34-53 10:54:00 Test Item Value Reference Range Interpretation Comments Eosinophils (test code = 2.4 See_Comment N [A utomated message] The Eosinophils) system which ge nerated this result tra nsmitted reference range : <=4.0. The reference r leo was not used to int erpret this result as normal/abnormal . [facility] HospitalKavmghsTEVOLDWHCT2499-08-40 10:54:00 Test Item Value Reference Range Interpretation Comments Monocytes # (test code 0.4 See_Comment N [Aut omated message] The = Monocytes #) system which generated this result tra nsmitted reference range : <=0.8. The reference r leo was not used to int erpret this result as normal/abnormal . [facility] HospitalArpinfxVIDVQONIAM5788-15-66 10:54:00 Test Item Value Reference Range Interpretation Comments Lymphocytes # (test code = Lymphocytes 2.0 1.0-5.5 N #) [facility] HospitalEicvtgjSBYINFQZBS7347-94-96 10:54:00 Test Item Value Reference Range Interpretation Comments Lymphocytes (test code = Lymphocytes) 42.8 20.0-40.0 H [facility] HospitalNmbeoseJATXUXGUJR0633-49-53 10:54:00 Test Item Value Reference Range Interpretation Comments Segs (test code = Segs) 45.4 45.0-75.0 N [facility] HospitalKfwmqdoRSUEMGYVO8500-21-98 10:02:00 Test Item Value Reference Range Interpretation Comments Chloride Lvl (test code = Chloride Lvl) 105 95-109 N [facility] HospitalHpqfewxSBGZXIRCZ9222-74-12 10:02:00 Test Item Value Reference Range Interpretation Comments Potassium Lvl (test code = Potassium 4.1 3.5-5.1 N Lvl) [facility] HospitalEuszukrOJEEMXCIH1439-20-99 10:02:00 Test Item Value Reference Range Interpretation Comments Sodium Lvl (test code = Sodium Lvl) 143 135-145 N [facility] HospitalRoymuxlAUKPQJEYE6964-97-49 10:02:00 Test Item Value Reference Range Interpretation Comments CO2 (test code = CO2) 29 24-32 N [facility] HospitalFjtykahOAYXDVQME9041-03-70 10:02:00 Test Item Value Reference Range Interpretation Comments Calcium Lvl (test code = Calcium Lvl) 8.7 8.5-10.5 N [facility] HospitalXmnqpysEXJLYSGIS4948-95-22 10:02:00 Test Item Value Reference Range Interpretation Comments BUN (test code = BUN) 6 7-22 L [facility] HospitalOrylxgfVVWEPIWPC0557-50-67 10:02:00 Test Item Value Reference Range Interpretation Comments Creatinine Lvl (test code = Creatinine 0.6 0.5-1.4 N Lvl) [facility] HospitalWhmppclZPKZPUTFX9666-35-55 10:02:00 Test Item Value Reference Range Interpretation Comments Glucose Lvl (test code = Glucose Lvl) 118 [facility] HospitalDrepvktRYVZLFYSJ5725-14-81 10:02:00 Test Item Value Reference Range Interpretation Comments AGAP (test code = AGAP) 13.1 10.0-20.0 N [facility] HospitalWgeonmlLRCJJKDFRJ9007-25-71 10:02:00 Test Item Value Reference Range Interpretation Comments Basophils # (test code 0.0 See_Comment N [Aut omated message] The = Basophils #) system which generated this result tra nsmitted reference range : <=0.2. The reference r leo was not used to int erpret this result as normal/abnormal . [facility] HospitalInombfiFXKBSNDUVY1796-98-03 10:02:00 Test Item Value Reference Range Interpretation Comments Monocytes # (test code 0.3 See_Comment N [Aut omated message] The = Monocytes #) system which generated this result tra nsmitted reference range : <=0.8. The reference r leo was not used to int erpret this result as normal/abnormal . [facility] HospitalVmfedwqFBNOWGFWBI8001-57-68 10:02:00 Test Item Value Reference Range Interpretation Comments Eosinophils # (test code 0.1 See_Comment N [A utomated message] The = Eosinophils #) system whic h generated this result tra nsmitted reference range : <=0.5. The reference r leo was not used to int erpret this result as normal/abnormal . [facility] HospitalCudgyokPPMFFEOCGO3862-50-49 10:02:00 Test Item Value Reference Range Interpretation Comments Segs-Bands # (test code = Segs-Bands #) 2.8 1.5-8.1 N [facility] HospitalMvjhfosGACJLXRLBA9194-48-72 10:02:00 Test Item Value Reference Range Interpretation Comments Lymphocytes # (test code = Lymphocytes 1.7 1.0-5.5 N #) [facility] HospitalOihwqcoDEGMXVGIPN3870-18-95 10:02:00 Test Item Value Reference Range Interpretation Comments Basophils (test code = 0.6 See_Comment N [Aut omated message] The Basophils) system which ge nerated this result tra nsmitted reference range : <=1.0. The reference r leo was not used to int erpret this result as normal/abnormal . [facility] HospitalZlyfejgSSHKMDEXRR9422-47-84 10:02:00 Test Item Value Reference Range Interpretation Comments Monocytes (test code = Monocytes) 6.9 2.0-12.0 N [facility] HospitalPvlkfauHMIMWOOERR5330-85-59 10:02:00 Test Item Value Reference Range Interpretation Comments Eosinophils (test code = 2.0 See_Comment N [A utomated message] The Eosinophils) system which ge nerated this result tra nsmitted reference range : <=4.0. The reference r leo was not used to int erpret this result as normal/abnormal . [facility] HospitalZqhqndcMPQLVSQBSP8482-70-12 10:02:00 Test Item Value Reference Range Interpretation Comments Segs (test code = Segs) 55.8 45.0-75.0 N [facility] HospitalQyjexowKHPLSKEVYO4687-35-87 10:02:00 Test Item Value Reference Range Interpretation Comments Lymphocytes (test code = Lymphocytes) 34.7 20.0-40.0 N [facility] HospitalVqszysiKLRBQKYEIU2208-47-39 10:02:00 Test Item Value Reference Range Interpretation Comments PTT (test code = PTT) 32.2 s 22.9-35.8 N [facility] HospitalWnkbyeuBRZSORHKFP2479-94-98 10:02:00 Test Item Value Reference Range Interpretation Comments PT (test code = PT) 13.3 s 12.0-14.7 N [facility] HospitalZoxrrpqNYYFKSDIUX7644-23-31 10:02:00 Test Item Value Reference Range Interpretation Comments INR (test code = INR) 1.01 0.85-1.17 N [facility] HospitalYvvfpuaXJFJTSMTEO2067-36-04 10:02:00 Test Item Value Reference Range Interpretation Comments Hct (test code = Hct) 27.5 36.0-48.0 L [facility] HospitalQnbjdadQEPXLTLJAC8662-89-72 10:02:00 Test Item Value Reference Range Interpretation Comments RBC (test code = RBC) 3.34 4.20-5.40 L [facility] HospitalKedjvlvVLDBGWHPOJ3454-15-83 10:02:00 Test Item Value Reference Range Interpretation Comments Hgb (test code = Hgb) 9.7 12.0-16.0 L [facility] HospitalNqijlwlQQYJXXVVSN2749-75-92 10:02:00 Test Item Value Reference Range Interpretation Comments WBC (test code = WBC) 5.0 3.7-10.4 N [facility] HospitalEfpgvqsARULJULBOR0614-64-43 10:02:00 Test Item Value Reference Range Interpretation Comments MPV (test code = MPV) 9.2 7.4-10.4 N [facility] HospitalDtnhjcyVYMNPXJWBE4861-39-04 10:02:00 Test Item Value Reference Range Interpretation Comments Platelet (test code = Platelet) 240 133-450 N [facility] HospitalJnvlhaeZTURGHJTHR4557-99-41 10:02:00 Test Item Value Reference Range Interpretation Comments RDW (test code = RDW) 14.3 11.5-14.5 N [facility] HospitalHtemjbcMGGHFVLHTZ0759-80-51 10:02:00 Test Item Value Reference Range Interpretation Comments MCHC (test code = MCHC) 35.2 32.0-36.0 N [facility] HospitalOcoluhzDGCAEYXOCK3391-96-34 10:02:00 Test Item Value Reference Range Interpretation Comments MCH (test code = MCH) 28.9 pg 27.0-31.0 N [facility] HospitalTdmtejzGWMRHFUDKU2641-98-94 10:02:00 Test Item Value Reference Range Interpretation Comments MCV (test code = MCV) 82.1 81.0-99.0 N [facility] HospitalLbzbhwxWJQOZFTOK6102-66-15 09:24:00 Test Item Value Reference Range Interpretation Comments Magnesium Lvl (test code = Magnesium 2.1 1.8-2.4 N Lvl) [facility] CenterXzuxyixOmqcjivlgzst5083-20-38 00:32:00 Test Item Value Reference Range Interpretation Comments Culture: Aspirate/Body Fluid/Tissue (test code = Culture: Aspirate/Body Fluid/Tissue) [facility] CenterZazgnydRvqmuiipxvmh0551-89-32 00:32:00 Test Item Value Reference Range Interpretation Comments Culture: Anaerobic (test code = Culture: Anaerobic) [facility] HospitalIwfxvpuTUDQDSFBY2916-56-07 17:10:00 Test Item Value Reference Range Interpretation Comments Temp Roberth (test code = Temp Roberth) 37.0 [facility] HospitalQcaqbflYCTOKWEUW0464-24-88 17:10:00 Test Item Value Reference Range Interpretation Comments O2 Sat Roberth (test code = O2 Sat Roberth) 27.0 40.0-70.0 L [facility] HospitalRvobxpzJPADXVZSX8150-34-38 17:10:00 Test Item Value Reference Range Interpretation Comments pCO2 Roberth (test code = pCO2 Roberth) 47 38-52 N [facility] HospitalYrqgutrULNILROEX6924-90-77 17:10:00 Test Item Value Reference Range Interpretation Comments pH Roberth (test code = pH Roberth) 7.37 7.28-7.42 N [facility] HospitalUorvpwxHVRRDHDKP1868-33-39 17:10:00 Test Item Value Reference Range Interpretation Comments BE Roberth (test code = 1 See_Comment N [Automa rohit message] The BE Roberth) system which ge nerated this result transmit rohit reference range : <=2. The reference range was not used to interpr et this result as reji l/abnormal. [facility] HospitalObfxwdjIEVVHOEXY6545-92-43 17:10:00 Test Item Value Reference Range Interpretation Comments HCO3 Roberth (test code = HCO3 Roberth) 27.2 22.0-26.0 H [facility] HospitalSvkoqpvKYJHYQUEP3481-16-10 17:10:00 Test Item Value Reference Range Interpretation Comments pO2 Roberth (test code = pO2 Roberth) 19 20-[address] [facility] CenterCbjkmibAbyrumqzvoon2337-93-52 14:18:00 Test Item Value Reference Range Interpretation Comments Culture: Blood (test code = Culture: Blood) [facility] CenterWccajahWfbrnqknhwti9499-10-28 14:18:00 Test Item Value Reference Range Interpretation Comments Culture: Wound/Abscess w/Gram Stain (test code = Culture: Wound/Abscess w/Gram Stain) [facility] HospitalBvqruylWTMPETZCF2470-73-50 13:09:00 Test Item Value Reference Range Interpretation Comments Lactic Acid Lvl (test code = Lactic 1.0 0.5-2.2 N Acid Lvl) [facility] HospitalReoykynQXZLRTRIF9637-60-28 12:20:00 Test Item Value Reference Range Interpretation Comments U Preg (test code = U Negative (09/01/2011 N Preg) 07:20:00) [facility]MqjufxuTRULJXJTRF1238-22-27 12:20:00 Test Item Value Reference Range Interpretation Comments UA Sq Epi (test code Occasional /LPF N = UA Sq Epi) (09/01/2011 07:20:00) [facility]ylldslQTCBNTZNVF5830-72-02 12:20:00 Test Item Value Reference Range Interpretation Comments UA Leuk Est (test Negative (09/01/2011 N code = UA Leuk Est) 07:20:00) [facility]TyhewwtFQWFGMHKVK8149-71-31 12:20:00 Test Item Value Reference Range Interpretation Comments UA Nitrite (test code Negative (09/01/2011 N = UA Nitrite) 07:20:00) [facility] AustinMyhuashDGNBPSAEWB5982-62-36 12:20:00 Test Item Value Reference Range Interpretation Comments UA Urobilinogen (test code = UA 0.2 0.1-1.0 N Urobilinogen) [facility] AustinBzxucmqTHCTDJDDDW7437-01-73 12:20:00 Test Item Value Reference Range Interpretation Comments UA Blood (test code = Negative (09/01/2011 N UA Blood) 07:20:00) [facility] AustinFrmcigmMBAMMVZIMG2423-29-54 12:20:00 Test Item Value Reference Range Interpretation Comments UA Ketones (test code = >=80 mg/dL A UA Ketones) *ABN*(09/01/2011 07:20:00) [facility] AustinWghhjwvJOFGUBAVOA0655-64-00 12:20:00 Test Item Value Reference Range Interpretation Comments UA Protein (test code Negative (09/01/2011 N = UA Protein) 07:20:00) [facility] AustinMcrnjjlKLPUDCLPTJ6588-74-81 12:20:00 Test Item Value Reference Range Interpretation Comments UA pH (test code = UA pH) 6.0 1 5.0-8.0 N [facility] AustinCvcdeqoTXOEVXLLFO6140-04-91 12:20:00 Test Item Value Reference Range Interpretation Comments UA Bili (test code = Negative (09/01/2011 N UA Bili) 07:20:00) [facility] AustinLrjprluTHMVPFFITV2350-45-25 12:20:00 Test Item Value Reference Range Interpretation Comments UA Glucose (test code = >=1000 mg/dL A UA Glucose) *ABN*(09/01/2011 07:20:00) [facility] AustinHqgluoyHXQUGMIDVW8006-76-96 12:20:00 Test Item Value Reference Range Interpretation Comments UA Spec Grav (test code = UA Spec 1.035 1 H Grav) [facility] AustinWmuqxpvIPKFAZATQZ5778-32-87 12:20:00 Test Item Value Reference Range Interpretation Comments UA Turbidity (test code = Clear (09/01/2011 N UA Turbidity) 07:20:00) [facility] AustinJfnzordXVNKVFYLUK2166-92-34 12:20:00 Test Item Value Reference Range Interpretation Comments UA Color (test code = Yellow *NA*(09/01/2011 UA Color) 07:20:00) [facility]OhmvvmbHIHTWXRSZ4034-40-16 08:00:00 Test Item Value Reference Range Interpretation Comments Lactic Acid Lvl (test code = Lactic 2.8 0.5-2.2 H Acid Lvl) [facility]aleYdbnwpsRUUJPYMBK7490-02-37 07:47:00 Test Item Value Reference Range Interpretation Comments Magnesium Lvl (test code = Magnesium 1.5 1.8-2.4 L Lvl) [facility]MilirfqCEGNUHFPHD0271-44-88 07:47:00 Test Item Value Reference Range Interpretation Comments Polychrom (test code = Slight (09/01/2011 N Polychrom) 02:47:00) [facility] HospitalFkbgjzwLHKNVLPRIE0151-83-06 07:47:00 Test Item Value Reference Range Interpretation Comments Anisocyte (test code = 1+ *ABN*(09/01/2011 A Anisocyte) 02:47:00) [facility] HospitalWsauwzgEDHZTIYUQF9175-61-06 07:47:00 Test Item Value Reference Range Interpretation Comments Large Plt (test code = Slight *ABN*(09/01/2011 A Large Plt) 02:47:00) [facility] HospitalZmoaxhbDSCKGOKHHN1932-83-68 07:47:00 Test Item Value Reference Range Interpretation Comments Tear Cell (test code = Tear Cell) [facility] HospitalOooocpuCCXCWUCKKK8671-77-27 07:47:00 Test Item Value Reference Range Interpretation Comments Elliptocyte (test code = Slight A Elliptocyte) *ABN*(09/01/2011 02:47:00) [facility] GLUCOSE XQGBEVS7541-51-54 17:02:00 Test Item Value Reference Range Interpretation Comments Comment1 (test code = Comment1) Notify RN/ [facility] GLUCOSE RFKFNBP4524-12-44 17:02:00 Test Item Value Reference Range Interpretation Comments Gluc POC Lifscn (test code = Gluc POC 134 65-110 H Lifscn) [facility] GLUCOSE KNLFZGE2992-20-46 13:45:00 Test Item Value Reference Range Interpretation Comments Gluc POC Lifscn (test code = Gluc POC 182 65-110 H Lifscn) [facility] GLUCOSE WKBDDFN6251-17-24 13:45:00 Test Item Value Reference Range Interpretation Comments Comment1 (test code = Comment1) [facility] RN/ [facility]alePxmeejrTIHETLNVS8646-26-84 10:22:00 Test Item Value Reference Range Interpretation Comments Phosphorus (test code = Phosphorus) 3.0 2.5-4.5 N [facility] CenterIzbncgmVMIWSCKAY0831-83-50 10:22:00 Test Item Value Reference Range Interpretation Comments Magnesium Lvl (test code = Magnesium 1.8 1.8-2.4 N Lvl) [facility] HospitalKyfiakzARQBXIUWW7676-13-25 10:22:00 Test Item Value Reference Range Interpretation Comments Chloride Lvl (test code = Chloride Lvl) 107 95-109 N [facility] HospitalFhgdyoiUYJEMFCAS5843-57-09 10:22:00 Test Item Value Reference Range Interpretation Comments Potassium Lvl (test code = Potassium 3.0 3.5-5.1 A Lvl) [facility] HospitalAoqtudsGHHTFCLXY5260-78-87 10:22:00 Test Item Value Reference Range Interpretation Comments Sodium Lvl (test code = Sodium Lvl) 141 135-145 N [facility] HospitalGxuvpmmYGBYPNKVO3844-51-81 10:22:00 Test Item Value Reference Range Interpretation Comments Creatinine Lvl (test code = Creatinine 0.6 0.5-1.4 N Lvl) [facility] HospitalStzqdjaQBPDJJCDZ5987-55-24 10:22:00 Test Item Value Reference Range Interpretation Comments CO2 (test code = CO2) 23 24-32 L [facility] HospitalCqmmipqRWXLFNTWY3970-08-06 10:22:00 Test Item Value Reference Range Interpretation Comments Calcium Lvl (test code = Calcium Lvl) 7.3 8.5-10.5 L [facility] HospitalEhhdgngRNUOJZUZO4603-00-30 10:22:00 Test Item Value Reference Range Interpretation Comments Glucose Lvl (test code = Glucose Lvl) 136 [facility] HospitalXrwzpdyHERBEVECU6187-17-10 10:22:00 Test Item Value Reference Range Interpretation Comments AGAP (test code = AGAP) 14.0 10.0-20.0 N [facility] HospitalHveuvxbGDHARPNGB3627-31-48 10:22:00 Test Item Value Reference Range Interpretation Comments BUN (test code = BUN) 5 7-22 L [facility] HospitalPaftyqkXQGFBBISLE5057-71-13 10:22:00 Test Item Value Reference Range Interpretation Comments Segs (test code = Segs) 69.6 45.0-75.0 N [facility] HospitalMkzzpjtXXOFZYIZRR2625-09-47 10:22:00 Test Item Value Reference Range Interpretation Comments Lymphocytes (test code = Lymphocytes) 21.5 20.0-40.0 N [facility] HospitalJflqrohGSXLMNJEIR8580-62-89 10:22:00 Test Item Value Reference Range Interpretation Comments Monocytes (test code = Monocytes) 7.6 2.0-12.0 N [facility] HospitalNtwynvxSOGBCQJZIP1170-66-01 10:22:00 Test Item Value Reference Range Interpretation Comments Eosinophils (test code = 1.0 See_Comment N [A utomated message] The Eosinophils) system which ge nerated this result tra nsmitted reference range : <=4.0. The reference r leo was not used to int erpret this result as normal/abnormal . [facility] HospitalJdviikyQVTWPLKXFO1664-78-94 10:22:00 Test Item Value Reference Range Interpretation Comments Basophils (test code = 0.3 See_Comment N [Aut omated message] The Basophils) system which ge nerated this result tra nsmitted reference range : <=1.0. The reference r leo was not used to int erpret this result as normal/abnormal . [facility] HospitalOcwlauyCAMNDMLKKY7531-48-64 10:22:00 Test Item Value Reference Range Interpretation Comments Segs-Bands # (test code = Segs-Bands #) 4.8 1.5-8.1 N [facility] HospitalLzhbjwgXGLUCVWGYX9906-63-32 10:22:00 Test Item Value Reference Range Interpretation Comments Eosinophils # (test code 0.1 See_Comment N [A utomated message] The = Eosinophils #) system whic h generated this result tra nsmitted reference range : <=0.5. The reference r leo was not used to int erpret this result as normal/abnormal . [facility] HospitalPkgtekyTEFHQKGZDT2612-62-26 10:22:00 Test Item Value Reference Range Interpretation Comments Lymphocytes # (test code = Lymphocytes 1.5 1.0-5.5 N #) [facility] HospitalUhzkdgfTUSYATUYNP6493-53-65 10:22:00 Test Item Value Reference Range Interpretation Comments Monocytes # (test code 0.5 See_Comment N [Aut omated message] The = Monocytes #) system which generated this result tra nsmitted reference range : <=0.8. The reference r leo was not used to int erpret this result as normal/abnormal . [facility] HospitalLquainkBITQVTUXAJ2256-53-17 10:22:00 Test Item Value Reference Range Interpretation Comments Basophils # (test code 0.0 See_Comment N [Aut omated message] The = Basophils #) system which generated this result tra nsmitted reference range : <=0.2. The reference r leo was not used to int erpret this result as normal/abnormal . [facility] HospitalLhwzwxaXOSQLAWZTF0326-39-20 10:22:00 Test Item Value Reference Range Interpretation Comments MPV (test code = MPV) 11.0 7.4-10.4 H [facility] HospitalAfgttgiMJWDTATFWV6805-95-99 10:22:00 Test Item Value Reference Range Interpretation Comments Platelet (test code = Platelet) 161 133-450 N [facility] HospitalKdqydmkULVDBTVGYS6212-29-02 10:22:00 Test Item Value Reference Range Interpretation Comments MCH (test code = MCH) 29.6 pg 27.0-31.0 N [facility] HospitalKfrnzxrEMOZUPTQFN7672-84-40 10:22:00 Test Item Value Reference Range Interpretation Comments MCHC (test code = MCHC) 35.4 32.0-36.0 N [facility] HospitalFklqlwzNZYJEDVQDC5350-13-19 10:22:00 Test Item Value Reference Range Interpretation Comments RDW (test code = RDW) 14.1 11.5-14.5 N [facility] HospitalAjfycsmWDUJMHSWGL6493-37-19 10:22:00 Test Item Value Reference Range Interpretation Comments WBC (test code = WBC) 6.8 3.7-10.4 N [facility] HospitalZkjennaUEVIYWKACE4917-69-38 10:22:00 Test Item Value Reference Range Interpretation Comments MCV (test code = MCV) 83.5 81.0-99.0 N [facility] HospitalWntlztjVPMRWVGGEM2157-15-20 10:22:00 Test Item Value Reference Range Interpretation Comments RBC (test code = RBC) 4.44 4.20-5.40 N [facility] HospitalNknghruQNPGWDLXQO8657-78-68 10:22:00 Test Item Value Reference Range Interpretation Comments Hgb (test code = Hgb) 13.1 12.0-16.0 N [facility] HospitalLpdvdqxJAIOUAQHQC7417-86-20 10:22:00 Test Item Value Reference Range Interpretation Comments Hct (test code = Hct) 37.1 36.0-48.[address] [facility] GLUCOSE GMVRBIQ8951-05-87 02:20:00 Test Item Value Reference Range Interpretation Comments Comment1 (test code = Comment1) Notify RN/MD [facility] GLUCOSE MWBOOGU0427-09-29 02:20:00 Test Item Value Reference Range Interpretation Comments Gluc POC Lifscn (test code = Gluc POC 332 65-110 H Lifscn) [facility]aleGaqqtyfLTKRZQPMA4437-35-37 09:47:00 Test Item Value Reference Range Interpretation Comments Phosphorus (test code = Phosphorus) 2.5 2.5-4.5 N [facility] HospitalEhsefkxSNLMTZQKB0350-73-21 09:47:00 Test Item Value Reference Range Interpretation Comments Glucose Lvl (test code = Glucose Lvl) 201 [facility] HospitalAbfdyxzYNSFZFNSR0003-33-40 09:47:00 Test Item Value Reference Range Interpretation Comments BUN (test code = BUN) 7 7-22 N [facility] HospitalQghpqugBZBETXALJ1051-92-71 09:47:00 Test Item Value Reference Range Interpretation Comments CO2 (test code = CO2) 19 24-32 L [facility] HospitalFkjfcxfZBSHBLMUD8696-48-88 09:47:00 Test Item Value Reference Range Interpretation Comments Creatinine Lvl (test code = Creatinine 0.3 0.5-1.4 L Lvl) [facility] HospitalWhimzgpTRRJXCOVO4197-41-62 09:47:00 Test Item Value Reference Range Interpretation Comments Sodium Lvl (test code = Sodium Lvl) 137 135-145 N [facility] HospitalNqvlpiuHUVIIONQM9979-28-48 09:47:00 Test Item Value Reference Range Interpretation Comments Chloride Lvl (test code = Chloride Lvl) 103 95-109 N [facility] HospitalPdkmadgVYJCKODJA6247-11-64 09:47:00 Test Item Value Reference Range Interpretation Comments Potassium Lvl (test code = Potassium 3.6 3.5-5.1 N Lvl) [facility] HospitalIvkrmhnNWJAXMCEJ9044-94-63 09:47:00 Test Item Value Reference Range Interpretation Comments Calcium Lvl (test code = Calcium Lvl) 7.9 8.5-10.5 L [facility] HospitalIslroufREMSUPCDW9536-39-20 09:47:00 Test Item Value Reference Range Interpretation Comments AGAP (test code = AGAP) 18.6 10.0-20.0 N [facility] HospitalMkiepyuMCCXKMVYC7538-23-39 09:47:00 Test Item Value Reference Range Interpretation Comments Magnesium Lvl (test code = Magnesium 1.6 1.8-2.4 L Lvl) [facility] HospitalUjebpvmYRKUGVXXTJ7713-27-52 09:47:00 Test Item Value Reference Range Interpretation Comments Basophils # (test code 0.0 See_Comment N [Aut omated message] The = Basophils #) system which generated this result tra nsmitted reference range : <=0.2. The reference r leo was not used to int erpret this result as normal/abnormal . [facility] HospitalVquqfivGVFBEUKDDN3087-18-80 09:47:00 Test Item Value Reference Range Interpretation Comments Eosinophils (test code = 0.4 See_Comment N [A utomated message] The Eosinophils) system which ge nerated this result tra nsmitted reference range : <=4.0. The reference r leo was not used to int erpret this result as normal/abnormal . [facility] HospitalWonhewwFXAALSQLDE3896-73-67 09:47:00 Test Item Value Reference Range Interpretation Comments Basophils (test code = 0.5 See_Comment N [Aut omated message] The Basophils) system which ge nerated this result tra nsmitted reference range : <=1.0. The reference r leo was not used to int erpret this result as normal/abnormal . [facility] HospitalDhobcvfBSZDWVFVWA8932-63-78 09:47:00 Test Item Value Reference Range Interpretation Comments Segs-Bands # (test code = Segs-Bands #) 5.9 1.5-8.1 N [facility] HospitalBqehlcvQMYNGBOREL9785-72-96 09:47:00 Test Item Value Reference Range Interpretation Comments Lymphocytes # (test code = Lymphocytes 1.2 1.0-5.5 N #) [facility] HospitalAlipcteGSZICIINXB2376-13-52 09:47:00 Test Item Value Reference Range Interpretation Comments Monocytes # (test code 0.5 See_Comment N [Aut omated message] The = Monocytes #) system which generated this result tra nsmitted reference range : <=0.8. The reference r leo was not used to int erpret this result as normal/abnormal . [facility] HospitalPfxorfwYWUHMWSKGC2918-44-51 09:47:00 Test Item Value Reference Range Interpretation Comments Eosinophils # (test code 0.0 See_Comment N [A utomated message] The = Eosinophils #) system whic h generated this result tra nsmitted reference range : <=0.5. The reference r leo was not used to int erpret this result as normal/abnormal . [facility] HospitalFkybyuyVLNEADPLZF6516-40-01 09:47:00 Test Item Value Reference Range Interpretation Comments Segs (test code = Segs) 76.9 45.0-75.0 H [facility] HospitalXnkuqykAQTGAVVAII5007-94-39 09:47:00 Test Item Value Reference Range Interpretation Comments Lymphocytes (test code = Lymphocytes) 15.9 20.0-40.0 L [facility] HospitalIzwxsxgAVXRVFSAON5543-78-37 09:47:00 Test Item Value Reference Range Interpretation Comments Monocytes (test code = Monocytes) 6.3 2.0-12.0 N [facility] HospitalKludfzyMPXABLYGFM9062-11-09 09:47:00 Test Item Value Reference Range Interpretation Comments MCV (test code = MCV) 82.8 81.0-99.0 N [facility] HospitalNtdljtxDRFNFXVXDP3142-94-74 09:47:00 Test Item Value Reference Range Interpretation Comments Hct (test code = Hct) 39.7 36.0-48.0 N [facility] HospitalCnkzoghAWRXKBZFUT5124-87-41 09:47:00 Test Item Value Reference Range Interpretation Comments MCH (test code = MCH) 29.1 pg 27.0-31.0 N [facility] HospitalYgjshmfVSXUWUBJZC8058-04-85 09:47:00 Test Item Value Reference Range Interpretation Comments Hgb (test code = Hgb) 14.0 12.0-16.0 N [facility] HospitalBxfadqiXXVEDKTHKE3202-25-58 09:47:00 Test Item Value Reference Range Interpretation Comments MCHC (test code = MCHC) 35.2 32.0-36.0 N [facility] HospitalNszxnjsWZAHPQTXQN3660-94-87 09:47:00 Test Item Value Reference Range Interpretation Comments RDW (test code = RDW) 13.9 11.5-14.5 N [facility] HospitalDxtzgwiNIVJGRGHNN3491-56-86 09:47:00 Test Item Value Reference Range Interpretation Comments Platelet (test code = Platelet) 160 133-450 N [facility] HospitalQrnunnmDMFUFICOCE6648-77-42 09:47:00 Test Item Value Reference Range Interpretation Comments MPV (test code = MPV) 11.9 7.4-10.4 H [facility] HospitalYlfinqaZMCFVEJUYG4485-09-45 09:47:00 Test Item Value Reference Range Interpretation Comments WBC (test code = WBC) 7.7 3.7-10.4 N [facility] HospitalUflhxorOWXJPEUGST3258-65-32 09:47:00 Test Item Value Reference Range Interpretation Comments RBC (test code = RBC) 4.80 4.20-5.40 N [facility] HospitalGrsjolcTNVNKFXIC4594-83-56 10:28:00 Test Item Value Reference Range Interpretation Comments Phosphorus (test code = Phosphorus) 2.6 2.5-4.5 N [facility] HospitalVpfztbrIBDRQAJWY1386-65-27 10:28:00 Test Item Value Reference Range Interpretation Comments Magnesium Lvl (test code = Magnesium 1.8 1.8-2.4 N Lvl) [facility] HospitalWethbaxXQOQDDNZE5631-11-78 10:28:00 Test Item Value Reference Range Interpretation Comments Potassium Lvl (test code = Potassium 3.7 3.5-5.1 N Lvl) [facility] HospitalXqllrbjYOWRZUWAY0547-05-16 10:28:00 Test Item Value Reference Range Interpretation Comments Sodium Lvl (test code = Sodium Lvl) 137 135-145 N [facility] HospitalIffawhuGOUVVJOLP6052-43-84 10:28:00 Test Item Value Reference Range Interpretation Comments Creatinine Lvl (test code = Creatinine 0.6 0.5-1.4 N Lvl) [facility] HospitalVabdawhFHXCWAZHI7208-72-66 10:28:00 Test Item Value Reference Range Interpretation Comments BUN (test code = BUN) 16 7-22 N [facility] HospitalJutmejbIHRGCFWKB0029-25-09 10:28:00 Test Item Value Reference Range Interpretation Comments Glucose Lvl (test code = Glucose Lvl) 200 [facility] HospitalUlgpdbeJTUDWZIEY5968-73-93 10:28:00 Test Item Value Reference Range Interpretation Comments Calcium Lvl (test code = Calcium Lvl) 8.3 8.5-10.5 L [facility] HospitalNazsiqsRDKYGSVQA4094-91-44 10:28:00 Test Item Value Reference Range Interpretation Comments AGAP (test code = AGAP) 19.7 10.0-20.0 N [facility] HospitalTgwisikTLXQFPAQP1601-24-09 10:28:00 Test Item Value Reference Range Interpretation Comments Chloride Lvl (test code = Chloride Lvl) 99 95-109 N [facility] HospitalAgyyosfXVZIJMYRW7574-13-58 10:28:00 Test Item Value Reference Range Interpretation Comments CO2 (test code = CO2) 22 24-32 L [facility] HospitalOrioqplGXLVPLTFDA1201-79-89 10:28:00 Test Item Value Reference Range Interpretation Comments Platelet (test code = Platelet) 172 133-450 N [facility] HospitalWalwahqTFZGYWLBOC9035-11-38 10:28:00 Test Item Value Reference Range Interpretation Comments MPV (test code = MPV) 12.0 7.4-10.4 H [facility] HospitalIfwdfjoFUJRGLJNTT9591-59-72 10:28:00 Test Item Value Reference Range Interpretation Comments WBC (test code = WBC) 7.3 3.7-10.4 N [facility] HospitalSraclhuZYEVJYPGQP8103-69-06 10:28:00 Test Item Value Reference Range Interpretation Comments RDW (test code = RDW) 14.6 11.5-14.5 H [facility] HospitalWstfiwdWTPJKGYARS9543-13-25 10:28:00 Test Item Value Reference Range Interpretation Comments MCHC (test code = MCHC) 35.0 32.0-36.0 N [facility] HospitalHvdtcghFYSZPVYNCD8643-50-81 10:28:00 Test Item Value Reference Range Interpretation Comments RBC (test code = RBC) 4.54 4.20-5.40 N [facility] HospitalXazbvfdCZUOFYOFIF0150-96-49 10:28:00 Test Item Value Reference Range Interpretation Comments Hct (test code = Hct) 37.6 36.0-48.0 N [facility] HospitalFzozxgkJCCDZHNIOH3727-68-71 10:28:00 Test Item Value Reference Range Interpretation Comments MCV (test code = MCV) 82.9 81.0-99.0 N [facility] HospitalApojgceOAPLLCJWHG3836-97-29 10:28:00 Test Item Value Reference Range Interpretation Comments MCH (test code = MCH) 29.0 pg 27.0-31.0 N [facility] HospitalDypiesrUAWPWQRWJS9168-83-36 10:28:00 Test Item Value Reference Range Interpretation Comments Hgb (test code = Hgb) 13.2 12.0-16.0 N [facility] HospitalHdkniumYREEAUNQWN5695-50-04 10:28:00 Test Item Value Reference Range Interpretation Comments Elliptocyte (test code = Slight A Elliptocyte) *ABN*(08/21/2011 04:28:00) [facility] HospitalVycqsqdFOIORXNIHK1381-58-51 10:28:00 Test Item Value Reference Range Interpretation Comments Polychrom (test code = Slight (08/21/2011 N Polychrom) 04:28:00) [facility] HospitalTnuincdJRFSXZBRZN8049-09-59 10:28:00 Test Item Value Reference Range Interpretation Comments Basophils # (test code 0.0 See_Comment N [Aut omated message] The = Basophils #) system which generated this result tra nsmitted reference range : <=0.2. The reference r leo was not used to int erpret this result as normal/abnormal . [facility] HospitalGmmoytcFONOSGXBVE5019-01-14 10:28:00 Test Item Value Reference Range Interpretation Comments Hypochrom (test code = Slight (08/21/2011 N Hypochrom) 04:28:00) [facility] HospitalEnhatjcKQLWPRUMLG2080-65-86 10:28:00 Test Item Value Reference Range Interpretation Comments Monocytes # (test code 0.6 See_Comment N [Aut omated message] The = Monocytes #) system which generated this result tra nsmitted reference range : <=0.8. The reference r leo was not used to int erpret this result as normal/abnormal . [facility] HospitalCopswkrKFLOZPGEHB1473-95-30 10:28:00 Test Item Value Reference Range Interpretation Comments Eosinophils # (test code 0.0 See_Comment N [A utomated message] The = Eosinophils #) system whic h generated this result tra nsmitted reference range : <=0.5. The reference r leo was not used to int erpret this result as normal/abnormal . [facility] HospitalSjytiljLYNQPMCVTG7673-45-22 10:28:00 Test Item Value Reference Range Interpretation Comments Segs-Bands # (test code = Segs-Bands #) 5.3 1.5-8.1 N [facility] HospitalRjwatnuDPGJYTBXGO9669-07-42 10:28:00 Test Item Value Reference Range Interpretation Comments Lymphocytes # (test code = Lymphocytes 1.3 1.0-5.5 N #) [facility] HospitalRaxmjljDUBCKDZHEZ2163-64-62 10:28:00 Test Item Value Reference Range Interpretation Comments Basophils (test code = 0.5 See_Comment N [Aut omated message] The Basophils) system which ge nerated this result tra nsmitted reference range : <=1.0. The reference r leo was not used to int erpret this result as normal/abnormal . [facility] HospitalBbnrdrjNASULDZSYI3960-50-52 10:28:00 Test Item Value Reference Range Interpretation Comments Monocytes (test code = Monocytes) 8.5 2.0-12.0 N [facility] HospitalWpsfjonCOLGCESKDK2529-96-88 10:28:00 Test Item Value Reference Range Interpretation Comments Eosinophils (test code = 0.3 See_Comment N [A utomated message] The Eosinophils) system which ge nerated this result tra nsmitted reference range : <=4.0. The reference r leo was not used to int erpret this result as normal/abnormal . [facility] HospitalUaljpxnETJFEOQRZI7688-79-84 10:28:00 Test Item Value Reference Range Interpretation Comments Lymphocytes (test code = Lymphocytes) 17.3 20.0-40.0 L [facility] HospitalWxkibgeMGBWEIWSUS0145-66-75 10:28:00 Test Item Value Reference Range Interpretation Comments Segs (test code = Segs) 73.4 45.0-75.[address] [facility] GLUCOSE WMZFGAC1605-69-87 07:47:00 Test Item Value Reference Range Interpretation Comments Comment2 (test code = Comment2) Verify w[facility] HospitalOutpwakLKCLNOZJQ5766-43-17 21:58:00 Test Item Value Reference Range Interpretation Comments S Preg (test code = S Negative (08/19/2011 N Preg) 15:58:00) [facility]SobzczsJQDKLTVQB2792-24-20 21:58:00 Test Item Value Reference Range Interpretation Comments Lipase Lvl (test code = Lipase Lvl) 169 73-393 N [facility] HospitalCnrzdnaYLRDOXWFP3752-13-71 21:58:00 Test Item Value Reference Range Interpretation Comments ALT (test code = ALT) 54 See_Comment N [Auto mated message] The system which ge nerated this result transmit rohit reference range : <=65. The reference range was not used to interpr et this result as reji l/abnormal. [facility] HospitalRfptgszGUNMQRJFO0901-89-98 21:58:00 Test Item Value Reference Range Interpretation Comments Alk Phos (test code = Alk Phos) 110 39-136 N [facility] HospitalDmjxhtkADYUJQBQO3034-62-69 21:58:00 Test Item Value Reference Range Interpretation Comments Bili Direct (test code 0.1 See_Comment N [Aut omated message] The = Bili Direct) system which generated this result tra nsmitted reference range : <=0.3. The reference r leo was not used to int erpret this result as reji l/abnormal. [facility] HospitalBwkcbuzVNWQGKZBZ4590-76-17 21:58:00 Test Item Value Reference Range Interpretation Comments Bili Total (test code = Bili Total) 0.9 0.2-1.3 N [facility] HospitalKcqtyjeLEURJLMVL4451-79-93 21:58:00 Test Item Value Reference Range Interpretation Comments Albumin Lvl (test code = Albumin Lvl) 4.4 3.5-5.0 N [facility] HospitalRhktkxjTFYYPZJAP8699-68-79 21:58:00 Test Item Value Reference Range Interpretation Comments Total Protein (test code = Total 8.8 6.4-8.4 H Protein) [facility] HospitalQumnatjVTPZHSSLC8921-54-35 21:58:00 Test Item Value Reference Range Interpretation Comments Bili Indirect (test 0.8 See_Comment N [Automa rohit message] The code = Bili Indirect) system which generated this result tra nsmitted reference range : <=1.0. The reference r leo was not used to int erpret this result as normal/abnormal . [facility] HospitalQuokbfmPBHOTPPHJ2252-07-45 21:58:00 Test Item Value Reference Range Interpretation Comments AST (test code = AST) 36 See_Comment N [Auto mated message] The system which ge nerated this result transmit rohit reference range : <=37. The reference range was not used to interpr et this result as reji l/abnormal. [facility] HospitalNijqfyfJJDQITHCR0011-20-30 21:58:00 Test Item Value Reference Range Interpretation Comments Globulin (test code = Globulin) 4.4 2.0-4.0 H [facility] HospitalIybpivqHANMJBNKN2413-42-64 21:58:00 Test Item Value Reference Range Interpretation Comments A/G Ratio (test code = A/G Ratio) 1.0 0.7-1.6 N [facility]JxbdzuwDYKIMSXHTZ6410-83-04 21:58:00 Test Item Value Reference Range Interpretation Comments UA Bacteria (test code Occasional /HPF N = UA Bacteria) (08/19/2011 15:58:00) [facility]HlmhpfvOBWBKKOJKV6459-83-06 21:58:00 Test Item Value Reference Range Interpretation Comments UA RBC (test 3-5 /HPF See_Comment A [Automated mes pastor] code = UA RBC) *ABN*(08/19/2011 The syste m which 15:58:00) generated this result transmitted ref erence range: <=2. The reference range was not used to int erpret this result as normal/abnormal . [facility]SrkhppvKCYAETFSBU8994-00-85 21:58:00 Test Item Value Reference Range Interpretation Comments UA WBC (test code = 3 See_Comment [Automa rohit message] The UA WBC) system which ge nerated this result transmit rohit reference range : <=5. The reference range was not used to interpr et this result as reji l/abnormal. [facility]NrjupkpDTWTJQXUNB6067-48-55 21:58:00 Test Item Value Reference Range Interpretation Comments UA Mucus (test code = Few /LPF (08/19/2011 N UA Mucus) 15:58:00) [facility]RbntyehJLKYBZQAUM2541-82-45 21:58:00 Test Item Value Reference Range Interpretation Comments UA Amorph Destiny (test Occasional /HPF A code = UA Amorph *ABN*(08/19/2011 Destiny) 15:58:00) [facility] AustinLcxjaawWNNPXZTSWN6100-86-15 21:58:00 Test Item Value Reference Range Interpretation Comments UA Urobilinogen (test code = UA 0.2 0.1-1.0 N Urobilinogen) [facility] AustinLfzurmnMAIUNECOEI3769-45-29 21:58:00 Test Item Value Reference Range Interpretation Comments UA Sq Epi (test code = Rare /LPF (08/19/2011 N UA Sq Epi) 15:58:00) [facility] AustinFctvnjxOQSAKRUZYT2767-36-89 21:58:00 Test Item Value Reference Range Interpretation Comments Micro? (test code = Performed (08/19/2011 N Micro?) 15:58:00) [facility] AustinTlatvjpRGUNYWAJEP8367-88-36 21:58:00 Test Item Value Reference Range Interpretation Comments UA Leuk Est (test Negative (08/19/2011 N code = UA Leuk Est) 15:58:00) [facility] AustinXwvzdenZJPJJFPLPC9759-06-11 21:58:00 Test Item Value Reference Range Interpretation Comments UA Nitrite (test code Negative (08/19/2011 N = UA Nitrite) 15:58:00) [facility] AustinJygdyanJYIVESYLEU4537-97-66 21:58:00 Test Item Value Reference Range Interpretation Comments UA pH (test code = UA pH) 5.5 1 5.0-8.0 N [facility] AustinHjokiobVDAMJGKHQG0855-33-54 21:58:00 Test Item Value Reference Range Interpretation Comments UA Blood (test code = Trace *ABN*(08/19/2011 A UA Blood) 15:58:00) [facility] AustinNobeqxrNDHGWQFXBR4716-24-97 21:58:00 Test Item Value Reference Range Interpretation Comments UA Bili (test code = Negative (08/19/2011 N UA Bili) 15:58:00) [facility]VwnutmlCNRXCVZVLH2085-78-36 21:58:00 Test Item Value Reference Range Interpretation Comments UA Ketones (test code = 80 mg/dL A UA Ketones) *ABN*(08/19/2011 15:58:00) [facility]XhllytfSIQNITBZYK2841-13-07 21:58:00 Test Item Value Reference Range Interpretation Comments UA Glucose (test code = >=1000 mg/dL A UA Glucose) *ABN*(08/19/2011 15:58:00) [facility]anoDzckwtcLWTUOYADXV5615-66-65 21:58:00 Test Item Value Reference Range Interpretation Comments UA Protein (test code Negative (08/19/2011 N = UA Protein) 15:58:00) [facility]EpvyzgmQVBDRBRECE9325-40-23 21:58:00 Test Item Value Reference Range Interpretation Comments UA Turbidity (test code Slight Cloudy N = UA Turbidity) (08/19/2011 15:58:00) [facility]KkpswdzRNUPBMACTB1836-93-25 21:58:00 Test Item Value Reference Range Interpretation Comments UA Spec Grav (test code = UA Spec 1.025 1 Grav) [facility]anoHjtlimfIPPKYLSJSM8507-80-05 21:58:00 Test Item Value Reference Range Interpretation Comments UA Color (test code = Yellow (08/19/2011 N UA Color) 15:58:00) [facility] HospitalDyvxbkdNCJTUGJNO1650-99-17 21:13:00 Test Item Value Reference Range Interpretation Comments AST (test code = AST) 23 See_Comment N [Auto mated message] The system which ge nerated this result transmit rohit reference range : <=37. The reference range was not used to interpr et this result as reji l/abnormal. [facility] HospitalGybtgvrQGTBWLRSX0645-48-20 21:13:00 Test Item Value Reference Range Interpretation Comments Bili Total (test code = Bili Total) 1.0 0.2-1.3 N [facility] HospitalZspxyjmXVXWKGZYD7982-68-84 21:13:00 Test Item Value Reference Range Interpretation Comments Alk Phos (test code = Alk Phos) 115 39-136 N [facility] HospitalQpbuyytMYNDFHDPW3068-12-56 21:13:00 Test Item Value Reference Range Interpretation Comments ALT (test code = ALT) 56 See_Comment N [Auto mated message] The system which ge nerated this result transmit rohit reference range : <=65. The reference range was not used to interpr et this result as reji l/abnormal. [facility] HospitalEyglthxSCYTCPXKX7562-25-55 21:13:00 Test Item Value Reference Range Interpretation Comments Total Protein (test code = Total 9.0 6.4-8.4 H Protein) [facility] HospitalFljnyalFHPPINZGT4936-73-11 21:13:00 Test Item Value Reference Range Interpretation Comments Albumin Lvl (test code = Albumin Lvl) 4.8 3.5-5.0 N [facility] HospitalYcnpmkyPWEFFNUKW8509-17-74 21:13:00 Test Item Value Reference Range Interpretation Comments Globulin (test code = Globulin) 4.2 2.0-4.0 H [facility] HospitalCguyvdxWVZUVMRMI1937-90-48 21:13:00 Test Item Value Reference Range Interpretation Comments A/G Ratio (test code = A/G Ratio) 1.1 0.7-1.6 N [facility] HospitalKlicdvqYMLNDZYZK0025-56-41 21:13:00 Test Item Value Reference Range Interpretation Comments B/C Ratio (test code = B/C Ratio) 30 6-25 H [facility]EsomaduDIQFXZOVTR9816-12-96 21:13:00 Test Item Value Reference Range Interpretation Comments RBC Morph (test code = Normal (08/19/2011 N RBC Morph) 15:13:00) [facility] HospitalGopawzsFOGMTLAAFZ5812-46-51 21:13:00 Test Item Value Reference Range Interpretation Comments Large Plt (test code = Slight *ABN*(08/19/2011 A Large Plt) 15:13:00) [facility] HospitalUussxppXUGERBRQYD8792-67-73 21:13:00 Test Item Value Reference Range Interpretation Comments Atypical Lymphs (test code = Atypical 0.0 N Lymphs) [facility] HospitalSonpmpeDARYIEQIIX5194-47-18 21:13:00 Test Item Value Reference Range Interpretation Comments Bands (test code = 0.0 See_Comment N [Automat ed message] The Bands) system which ge nerated this result transmit rohit reference range : <=11.0. The reference r leo was not used to interpr et this result as reji l/abnormal. [facility] HospitalLbowwfoWKJBFEYZZ6046-45-15 21:10:00 Test Item Value Reference Range Interpretation Comments O2 Sat Roberth (test code = O2 Sat Roberth) 74.0 40.0-70.0 H [facility] HospitalYfguqroXMZJRSBES0999-76-05 21:10:00 Test Item Value Reference Range Interpretation Comments Temp Roberth (test code = Temp Roberth) 37.0 [facility] HospitalSqkgkkoQAVISCDYI2121-71-78 21:10:00 Test Item Value Reference Range Interpretation Comments pO2 Roberth (test code = pO2 Roberth) 42 20-49 N [facility] HospitalLwslebiQDJUQEUCV8090-00-98 21:10:00 Test Item Value Reference Range Interpretation Comments HCO3 Roberth (test code = HCO3 Roberth) 17.3 22.0-26.0 L [facility] HospitalCskkhpwRSKENJVPI8839-81-54 21:10:00 Test Item Value Reference Range Interpretation Comments pH Roberth (test code = pH Roberth) 7.34 7.28-7.42 N [facility] HospitalSxnksikNLUYWOWUA2399-20-84 21:10:00 Test Item Value Reference Range Interpretation Comments pCO2 Roberth (test code = pCO2 Roberth) 32 38-52 L [facility] HospitalPhxqkzgLKVWSVGGZ6048-98-52 21:10:00 Test Item Value Reference Range Interpretation Comments BE Roberth (test code = -7 See_Comment L [Automa rohit message] The BE Roberth) system which ge nerated this result transmit rohit reference range : <=2. The reference range was not used to interpr et this result as reji l/abnormal. [facility]aleXngbhyqLGCSNVRZAO2767-21-50 20:34:00 Test Item Value Reference Range Interpretation Comments CDC-HIV 1/2 Ab (test Negative *NA*(08/19/2011 code = CDC-HIV 1/2 14:34:00) Ab) [facility]
[2022-03-16] MEDS ORDERED: METOCLOPRAMIDE 10 MG/2mL INJ ONE (18:49)
[2022-03-16 19:52] LABS: Hematocrit 37.7 % (36.0-45.0); Lymphocytes % 20.8 % (15.3-44.8); MCV 87.6 fL (80-100); MPV 9.2 fL (7.6-11.3); RBC Red Blood Cell Count 4.31 M/uL (3.86-4.86)
[2022-03-16] MEDS ORDERED: FAMOTIDINE 20 MG/2 ML VIAL IV ONE (19:58)
[2022-03-16] MEDS ORDERED: MEPERIDINE HCL 50 MG/ML ONE (20:06)
[2022-03-16 20:14] LABS: Albumin 3.4 g/dL (3.4-5.0); Bilirubin Total 0.5 mg/dL (0.2-1.0); Magnesium 1.9 mg/dL (1.8-2.4); Potassium 4.4 mmol/L (3.5-5.1); Protein, Total 7.4 g/dL (6.4-8.2)
[2022-03-16] MEDS ORDERED: HYDRALAZINE HCL 20 MG/ML VIAL ONE (22:11)
[2022-03-16 23:01] LABS: Urine Blood Trace-lysed (Negative); Urine Glucose Trace (Negative); Urine Protein 3+ (Negative); Urine Specific Gravity 1.015 (1.005-1.030); Urine pH 8.5 (5.0-7.0)
--- NOTE | 2022-03-16 23:01 | EDPHYS ---
Physician Documentation [facility] Name: Cathi Zaldivar Age: 41 yrs Sex: Female : 1980 Arrival Date: 03/16/2022 Time: 18:04 Bed 4 Private MD: ED Physician José Miguel Saleh HPI: 03/16 19:00 This 41 yrs old Female presents to ER via Wheelchair with complaints of cp Abdominal Pain. 19:00 The patient presents with abdominal pain that is diffuse. cp 19:00 Onset: The symptoms/episode began/occurred today, last week. cp 19:00 The symptoms do not radiate. Associated signs and symptoms: Pertinent positives: nausea cp and vomiting, Pertinent negatives: constipation, diarrhea, vomiting blood. 19:00 Severity of pain: in the emergency department the pain is unchanged despite home cp interventions. The patient has been recently seen at the [facility] Emergency Department, for similar complaints chronically. 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 jl7 Historical: - Allergies: 18:29 ambien; jl7 18:29 Codeine; jl7 18:29 GUAIFENESIN; jl7 18:29 Lisinopril; jl7 18:29 Morphine; jl7 18:29 Nitrofurantoin Macrocrystal; jl7 18:29 PENICILLINS; jl7 18:29 Prolixin; jl7 18:29 zolpidem tartrate; jl7 - PMHx: 18:29 "mental problems"; CHF; chronic kidney disease; cyclic vomiting syndrome; Diabetes - jl7 NIDDM; Dialysis; m-w-f; ENCEPHALOPATHY; Gastroparesis; Hypertension; ibs; liver failure; PERIPHERAL NEUROPATHY; pseudo aneurysm R groin; Seizures; - PSHx: 18:29 section; dialysis catheter R chest wall; eye removed; jl7 - Immunization history:: Client reports having NOT received the Covid vaccine. - Social history:: Smoking status: Patient/guardian denies using tobacco. ROS: 19:05 Constitutional: Negative for body aches, chills, fever. cp 19:05 Eyes: Negative for injury, pain, redness, and discharge. cp 19:05 ENT: Negative for drainage from ear(s), ear pain, sore throat, difficulty swallowing, difficulty handling secretions. 19:05 Cardiovascular: Negative for chest pain, palpitations. 19:05 Respiratory: Negative for cough, shortness of breath, wheezing. 19:05 Abdomen/GI: Positive for abdominal pain, nausea and vomiting, Negative for diarrhea, constipation, hematemesis. 19:05 Back: Negative for pain at rest, pain with movement. 19:05 Skin: Negative for cellulitis, rash. 19:05 Neuro: Negative for altered mental status, headache, weakness. 19:05 All other systems are negative. Exam: 19:10 Constitutional: The patient appears in no acute distress, alert, awake, cp non-diaphoretic, non-toxic, well developed, well nourished. 19:10 Head/Face: Normocephalic, atraumatic. cp 19:10 Eyes: Periorbital structures: appear normal, Conjunctiva: normal, no exudate, no injection, Sclera: no appreciated abnormality, Lids and lashes: appear normal, bilaterally. 19:10 ENT: External ear(s): are unremarkable, Nose: is normal, Mouth: Lips: moist, Oral mucosa: pink and intact, moist, Posterior pharynx: is normal, airway is patent, no erythema, no exudate. 19:10 Chest/axilla: Inspection: normal, Palpation: is normal, no crepitus, no tenderness. 19:10 Cardiovascular: Rate: normal, Rhythm: regular, Edema: is not appreciated, JVD: is not appreciated. 19:10 Respiratory: the patient does not display signs of respiratory distress, Respirations: normal, no use of accessory muscles, no retractions, labored breathing, is not present, Breath sounds: are clear throughout, no decreased breath sounds, no stridor, no wheezing. 19:10 Abdomen/GI: Inspection: abdomen appears normal, Bowel sounds: active, all quadrants, Palpation: soft, in all quadrants, severe abdominal tenderness, in all quadrants, rebound tenderness, is not appreciated. 19:10 Back: CVA tenderness, is absent. 19:10 Skin: no rash present. 19:10 Neuro: Orientation: to person, place \\T\\ time. Mentation: is normal, Motor: moves all fours, strength is normal, Sensation: is normal. Vital Signs: 18:27 BP 163 / 107; Pulse 78; Resp 17; Temp 98.4; Pulse Ox 100% ; Weight 72.4 kg; Height 5 [facility] ft. 1 in. (154.94 cm); Pain 8/10; 20:14 BP 218 / 107; Pulse 76; Resp 20; Pulse Ox 99% ; ll3 22:00 BP 185 / 86; Pulse 65; Resp 20; Pulse Ox 99% on R/A; jb4 22:30 BP 158 / 81; Pulse 72; Resp 18; Pulse Ox 99% ; ll3 18:27 Body Mass Index 30.16 (72.40 kg, 154.94 cm) [facility] MDM: 18:34 Patient medically screened. cp 23:00 Data reviewed: vital signs, nurses notes, lab test result(s). cp 23:00 Counseling: I had a detailed discussion with the patient and/or guardian regarding: the cp historical points, exam findings, and any diagnostic results supporting the discharge/admit diagnosis, lab results, to return to the emergency department if symptoms worsen or persist or if there are any questions or concerns that arise at home. Response to treatment: the patient's symptoms have markedly improved after treatment, and as a result, I will discharge patient. Special discussion: Based on the patient's Hx, exam, and Dx evaluation, there is no indication for emergent surgery or inpatient Tx. It is understood by the patient/guardian that if the Sx's persist or worsen they need to return immediately for re-evaluation. 03/16 18:37 Order name: CBC with Diff; Complete Time: 20:02 03/16 22:01 Interpretation: Normal except: EOSINOPHIL % 5.9; RDW 19.0. 03/16 18:37 Order name: CMP; Complete Time: 22:00 03/16 22:00 Interpretation: Normal except: K 4.4; GLUC 170; BUN 28; CRE 5.40; GFR 10; GLOB 4.0; A/G cp 0.9. 03/16 18:37 Order name: Lipase; Complete Time: 22:00 cp 03/16 18:37 Order name: Urine Microscopic Only 03/16 19:44 Order name: Magnesium; Complete Time: 22:00 EDMS 03/16 22:21 Order name: Glucose, Ancillary Testing EDNJ 03/16 23:01 Order name: Urine Dipstick-Ancillary EDNJ 03/16 23:04 Order name: Urine --Ancillary (enter results) ds4 03/16 18:37 Order name: IV Saline Lock; Complete Time: 19:42 cp 03/16 18:37 Order name: Labs collected and sent; Complete Time: 19:42 cp 03/16 18:37 Order name: Urine Test (obtain specimen); Complete Time: 22:50 cp 03/16 22:01 Order name: PO challenge; Complete Time: 22:44 cp Administered Medications: 20:04 Drug: Reglan (metoCLOPramide) 10 mg Route: IVP; Site: left forearm; ll3 23:18 Follow up: Response: No adverse reaction; Marked relief of symptoms ll3 20:05 Drug: Pepcid (famotidine) 20 mg Route: IVP; Site: left forearm; ll3 23:18 Follow up: Response: No adverse reaction; Marked relief of symptoms ll3 20:12 Drug: Demerol (meperidine) 50 mg Route: IVP; Site: left forearm; ll3 23:18 Follow up: Response: No adverse reaction; Marked relief of symptoms ll3 22:17 Drug: hydrALAZINE 10 mg Route: IVP; Site: left forearm; ll3 22:30 Follow up: BP 158 / 81; Pulse 72 bpm; Resp 18 bpm; Pulse Ox 99% ; Response: No adverse ll3 reaction; Blood pressure is lowered 22:26 Not Given (Physician Discretion): Demerol (meperidine) 25 mg IVP once jb4 Disposition Summary: 03/16/22 23:00 Discharge Ordered Location: Home cp Problem: chronic cp Symptoms: have improved cp Condition: Stable cp Diagnosis - Nausea with vomiting, unspecified cp - Abdominal pain, unspecified cp - Hypertensive heart and chronic kidney disease without heart failure, with stage 5 cp chronic kidney disease, or end stage renal disease Followup: cp - With: Private Physician - When: 1 - 2 days - Reason: Recheck today's complaints Discharge Instructions: - Discharge Summary Sheet cp - Abdominal Pain, Adult cp - Nausea and Vomiting, Adult cp - Food Basics for Chronic Kidney Disease cp Forms: - Medication Reconciliation Form cp - Thank You Letter cp - Antibiotic Education cp - Prescription Opioid Use cp Prescriptions: - promethazine 12.5 mg Rectal suppository - insert 2 suppository by RECTAL route every 6 hours As needed; 20 suppository; cp Refills: 0, Product Selection Permitted - Reglan 10 mg Oral Tablet - take 1 tablet by ORAL route every 6 hours take 30 minutes before meals and at cp bedtime; 30 tablet; Refills: 0, Product Selection Permitted Signatures: Dispatcher [employer] EDNJ Luis Ruvalcaba PA PA cp Leal, Jahala RN RN jl7 Ryann Hogan RN RN ll3 Silverio Macias RN jb4 Corrections: (The following items were deleted from the chart) 19:44 19:11 MAGNESIUM+C.LAB.BRZ ordered. [facility] EDNJ 03/17 22:55 03/16 19:00 Onset: The symptoms/episode began/occurred today, cp cp
--- NOTE | 2022-03-16 23:01 | ER ---
Nurse's Notes [facility] Name: Cathi Zaldivar Age: 41 yrs Sex: Female : 1980 Arrival Date: 03/16/2022 Time: 18:04 Bed 4 Private MD: Diagnosis: Nausea with vomiting, unspecified;Abdominal pain, unspecified;Hypertensive heart and chronic kidney disease without heart failure, with stage 5 chronic kidney disease, or end stage renal disease Presentation: 03/16 18:27 Chief complaint: Patient states: Diffuse Abdominal pains since Wednesday with N/V/D, jl7 dialysis today, took 2 liters off. Coronavirus screen: Vaccine status: Patient reports being unvaccinated. At this time, the client does not indicate any symptoms associated with coronavirus-19. Ebola Screen: No symptoms or risks identified at this time. Initial Sepsis Screen: Does the patient meet any 2 criteria? No. Patient's initial sepsis screen is negative. Does the patient have a suspected source of infection? No. Patient's initial sepsis screen is negative. Risk Assessment: Do you want to hurt yourself or someone else? Patient reports no desire to harm self or others. Onset of symptoms was March 13, 2022. 18:27 Method Of Arrival: Wheelchair 7 18:27 Acuity: JESSICA 3 jl7 Triage Assessment: 18:29 General: Appears in no apparent distress. uncomfortable, Behavior is cooperative, jl7 anxious, crying. Pain: Complains of pain in abdomen Pain currently is 8 out of 10 on a pain scale. GI: Reports diarrhea, nausea, vomiting. 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 jl7 Historical: - Allergies: 18:29 ambien; jl7 18:29 Codeine; jl7 18:29 GUAIFENESIN; jl7 18:29 Lisinopril; jl7 18:29 Morphine; jl7 18:29 Nitrofurantoin Macrocrystal; jl 18:29 PENICILLINS; jl 18:29 Prolixin; jl 18:29 zolpidem tartrate; jl7 - PMHx: 18:29 "mental problems"; CHF; chronic kidney disease; cyclic vomiting syndrome; Diabetes - jl7 NIDDM; Dialysis; m-w-f; ENCEPHALOPATHY; Gastroparesis; Hypertension; ibs; liver failure; PERIPHERAL NEUROPATHY; pseudo aneurysm R groin; Seizures; - PSHx: 18:29 section; dialysis catheter R chest wall; eye removed; jl7 - Immunization history:: Client reports having NOT received the Covid vaccine. - Social history:: Smoking status: Patient/guardian denies using tobacco. Screenin:45 Abuse screen: Denies threats or abuse. Nutritional screening: No deficits noted. em6 Tuberculosis screening: No symptoms or risk factors identified. 23:19 Fall Risk None identified. ll3 Assessment: 18:45 General: Appears in no apparent distress. Behavior is cooperative. Pain: Complains of em6 pain in abdomen Pain does not radiate. Pain currently is 8 out of 10 on a pain scale. Quality of pain is described as crampy, sharp, Pain began 2-3 days ago. Is continuous, Alleviated by medications, repositioning. Neuro: Grant Agitation-Sedation Scale (RASS): 0 - Alert and Calm Level of Consciousness is awake, alert, obeys commands, Oriented to person, place, time, situation. Cardiovascular: Heart tones present Patient's skin is warm and dry. Respiratory: Airway is patent Respiratory effort is even, unlabored, Respiratory pattern is regular, symmetrical, Breath sounds are clear bilaterally. GI: Abdomen is non-distended, Abd is soft and non tender X 4 quads. Reports nausea, vomiting. GI: Bowel sounds present X 4 quads. : No signs and/or symptoms were reported regarding the genitourinary system. EENT: No signs and/or symptoms were reported regarding the EENT system. Derm: No signs and/or symptoms reported regarding the dermatologic system. Musculoskeletal: Circulation, motion, and sensation intact. 19:00 Reassessment: No changes from previously documented assessment. Patient and/or family ll3 updated on plan of care and expected duration. Pain level reassessed. Patient is alert, oriented x 3, equal unlabored respirations, skin warm/dry/pink. 20:00 Reassessment: Pt c/o abdominal pain 9/10, Luis Page notified. ll3 21:30 Reassessment: Patient and/or family updated on plan of care and expected duration. Pain ll3 level reassessed. Patient is alert, oriented x 3, equal unlabored respirations, skin warm/dry/pink. States pain has improved to 5/10. Vital Signs: 18:27 BP 163 / 107; Pulse 78; Resp 17; Temp 98.4; Pulse Ox 100% ; Weight 72.4 kg; Height 5 jl7 ft. 1 in. (154.94 cm); Pain 8/10; 20:14 BP 218 / 107; Pulse 76; Resp 20; Pulse Ox 99% ; ll3 22:00 BP 185 / 86; Pulse 65; Resp 20; Pulse Ox 99% on R/A; jb4 22:30 BP 158 / 81; Pulse 72; Resp 18; Pulse Ox 99% ; ll3 18:27 Body Mass Index 30.16 (72.40 kg, 154.94 cm) jl7 ED Course: 18:04 Patient arrived in ED. rg4 18:23 Luis Ruvalcaba PA is PHCP. cp 18:23 José Miguel Saleh DO is Attending Physician. cp 18:29 Triage completed. jl7 18:29 Arm band placed on right wrist. jl7 18:34 Peyman Negron, RN is Primary Nurse. jd3 19:02 Bed in low position. Call light in reach. Side rails up X2. Pulse ox on. NIBP on. Warm em6 blanket given. 19:42 Inserted saline lock: 24 gauge in left forearm, using aseptic technique. Blood ds4 collected. 23:19 No provider procedures requiring assistance completed. IV discontinued, intact, ll3 bleeding controlled, No redness/swelling at site. Pressure dressing applied. Administered Medications: 20:04 Drug: Reglan (metoCLOPramide) 10 mg Route: IVP; Site: left forearm; ll3 23:18 Follow up: Response: No adverse reaction; Marked relief of symptoms ll3 20:05 Drug: Pepcid (famotidine) 20 mg Route: IVP; Site: left forearm; ll3 23:18 Follow up: Response: No adverse reaction; Marked relief of symptoms ll3 20:12 Drug: Demerol (meperidine) 50 mg Route: IVP; Site: left forearm; ll3 23:18 Follow up: Response: No adverse reaction; Marked relief of symptoms ll3 22:17 Drug: hydrALAZINE 10 mg Route: IVP; Site: left forearm; ll3 22:30 Follow up: BP 158 / 81; Pulse 72 bpm; Resp 18 bpm; Pulse Ox 99% ; Response: No adverse ll3 reaction; Blood pressure is lowered 22:26 Not Given (Physician Discretion): Demerol (meperidine) 25 mg IVP once jb4 Medication: 23:19 VIS not applicable for this client. ll3 Outcome: 23:00 Discharge ordered by . cp 23:19 Discharged to home ambulatory, with family. ll3 23:19 Condition: stable 23:19 Discharge instructions given to patient, family, Instructed on discharge instructions, follow up and referral plans. medication usage, Demonstrated understanding of instructions, follow-up care, medications, Prescriptions given X 2. 23:19 Patient left the ED. ll3 Signatures: Mohit Boland ds4 Luis Ruvalcaba PA PA Mari Roper rg4 Silverio Macias, RN RN jb4 Sophie Rubio RN RN jl7 Peyman Negron, RN RN jd3 Ryann Hogan, RN RN ll3 Monica Maddox, RN RN em6
[2022-03-16 23:19] LABS: Urine Bacteria <20 /HPF (<20)
[2022-03-16 23:21] LABS: Urine Specific Gravity/Preg 1.015 (1.005-1.030)
== END 2022-03-16 23:19 | disposition home or self-care (01) ==
LOC: ER 18:02
DX: R11.2 Nausea with vomiting, unspecified (principal); R10.9 Unspecified abdominal pain; I13.2 Hypertensive heart and chronic kidney disease with heart failure and with stage 5 chronic kidney disease, or end stage renal disease; N18.5 Chronic kidney disease, stage 5; I50.9 Heart failure, unspecified; Z99.2 Dependence on renal dialysis; Z88.0 Allergy status to penicillin; Z88.5 Allergy status to narcotic agent; Z88.8 Allergy status to other drugs, medicaments and biological substances
CPT/HCPCS: 85025; 36415; 83735; 81025; 82947; 83690; 80053; J0360; J2765; J2175; 81003; 81015; 96374; 96375; 99284

== ENCOUNTER 2022-03-23 13:49 | Emergency (ER) | payer OTHER ==
--- OUTSIDE RECORDS SUMMARY | 2022-03-23 14:24 | XMS REPORT | Continuity of Care Document ---
:1980 Author Organization [facility] t Address [address] [place] [address] Care Team Providers Name Role Phone Jose Miguel Morin DO Primary Care Physician Peg Attending Clinician Unavailable RAJ WEST Attending Clinician Unavailable Jose Miguel Morin DO Attending Clinician Rosy BURNS, Brooke Ricci Attending Clinician [phone] Bessie Peace Attending Clinician [phone] Forrest Cruz Attending Clinician Unavailable Melany Gilbert Attending Clinician Pat BURNS, Rajeeb K. Attending Clinician Isra BURNS, Rachel Lew Attending Clinician [phone] Robe BURNS, Holden Elmore Attending Clinician Magaly BURNS, Shanda Higuera Attending Clinician Endy BURNS, Aurelio Attending Clinician Alesia Dodd Attending Clinician Joe BURNS, Mando Raphael Attending Clinician [phone] Jose Carlos BURNS, Veto Vincent Attending Clinician Kenyatta BURNS, Juwan Attending Clinician Doc BURNS, Sofi Juárez Attending Clinician [phone] Robert MAYS, Gayle Attending Clinician Unavailable [...] Coombs RN Attending Clinician Unavailable Doctor Unassigned, Moenkopi Attending Clinician Unavailable MONISHA BAJWA Attending Clinician Unavailable Monisha Bajwa Attending Clinician Alexandr Diane MD Attending Clinician MARVIN WRIGHT Attending Clinician Unavailable Marvin Wright Attending Clinician Lamin BURNS, Sendil K.H. Attending Clinician Carlos BURNS, Jose Luis Attending Clinician Earl Sanchez DO Attending Clinician Deja Cleaning DPM Attending Clinician [phone] OZ KIMBLE K.H. Attending Clinician Unavailable Rei Waldron Attending Clinician Unavailable Rei Waldron Attending Clinician Unavailable LY DORADO Attending Clinician Unavailable MOISE BHAKTA Attending Clinician Unavailable Luna Jamison Attending Clinician Joe Juárez Attending Clinician Atul Valdez Attending Clinician Deshazo_T [...] Number Effective Date Expiration Date S [employer] [facility] [id number] 2020 00:00:00 MEDICARE PART A AND [id number] 2014 B 00:00:00 [employer] [id number] 2021 (MEDICARE 00:00:00 REPLACEMENT HMO) MEDICARE A B [id number] 2014 00:00:00 MEDICAID OF [place] [id number] 2016 00:00:00 Problems Condition Condition Condition Status [...] ESISI/IBS- 01-03 21:41:00 l /ANEMIA D/ANEMIA 00:00: [place] Active 01/03/2021 [facility] NEW NEW Diagnosis Active 2020-12-24 Mem oria PATIENT GI PATIENT GI 10-14 10:39:00 l CONSULT CONSULT 00:00: Vin REFRACTORY REFRACTORY 00 GASTRO GASTRO Active 10/14/2020 [facility] Malfunctio Malfunctio Disease Active Overview : Univers n of n of 6-03 Formattin ity of arterioven arterioven 00:00: g of this [place] ous ous 00 note Medical dialysis dialysis might be Bran ch fistula, fistula, different initial initial from the encounter encounter original. Added automatic ally from request for surgery [id number] Candidiasi Candidiasi Disease Active U nivers s of vulva s of vulva 2-18 it y of and vagina [place] [facility] [place] Screening Screening Disease Active Uni vers for breast for breast 2-18 it y of cancer cancer 00:00: [place] 00 Medical Branch NEW NEW Diagnosis Active 2018-07-26 Mem oria EVALUATION EVALUATION - 09:39:00 l Active 00:00: Vin 07/12/2018 [facility] Pyogenic Pyogenic Disease Active 2017-06 Overview: Un lori granuloma granuloma 0-17 Formattin i ty of of of 00:00: g of this [place] conjunctiv conjunctiv 00 note Me dical a, right a, right might be Bran ch different from the original. Added automatic ally from request for surgery [id number] Right eye Right eye Disease Active Overview: Univers affected affected 9-04 Formattin ity of by by 00:00: g of this [place] proliferat proliferat 00 note Me dical montse montse might be Branch diabetic diabetic different retinopath retinopath from the y with y with original. traction traction Added retinal retinal automatic detachment detachment ally from not not request involving involving for macula, macula, surgery associated associated [id number] with type with type 1 diabetes 1 [...] Added automatic ally from request for surgery [id number] ESRD (end ESRD (end Disease Active Overview: Univers stage stage -12 Formattin ity of renal renal 00:00: g of this [place] disease) disease) 00 note Medica l on on might be Branch dialysis dialysis different from the original. Added automatic ally from request for surgery [id number] Diabetes Diabetes Disease Active Metho di mellitus [...] Added automatic ally from request for surgery [id number] Neovascula Neovascula Disease Active U nivers r r 1-18 it[place] of glaucoma, [place], [place] left [place] Medica l Branch Increased Increased Disease Active Uni vers intraocula intraocula 1-18 it y of r pressure r pressure [place] Fall Fall Disease Active 2016-06 Univers 0-13 ity of 00:00: [place] [address] Medical Branch Pneumonia Pneumonia Disease Active 2016-06 Uni vers 0-11 ity of 00:00: [place] [address] Medical Branch Diabetes Diabetes Disease Active 2016-06 Overview: Un lori mellitus mellitus 0-05 Formattin ity of 00:00: g of this [place] 00 note Medical might be Branch different from the original. Added automatic ally from request for surgery [id number] Pseudotumo Pseudotumo Disease Active U nivers r cerebri r cerebri 9-25 ity of 00:00: [place] [address] Medical Branch Peripheral Peripheral Disease Active U nivers neuropathy neuropathy 7-16 it y of 00:00: [address] Branch Liver Liver Disease Active [facility] [...] l FAILURE 00:00: Vin Active 00 07/23/2016 [facility] CONGESTION CONGESTIO Diagnosis Active 2016-07-24 Blasmarin AMD N AMD 07-23 01:49:00 l DIARRHEA DIARRHEA 00:00: Jake gonzalez Active 00 07/23/2016 [facility] Congestive Congestive Disease Active 2015-06 U T heart heart 08-11 Health failure failure 00:00: (CHF) (CHF) 00 SOB/SWELLI SOB/SWELL Diagnosis Active 2015-062016-06-10 Memoria NG ING Active 08-11 15:48:00 l 06/10/2016 00:00: Jake gonzalez [address] CHF/RENAL CHF/RENAL Diagnosis Active 2015-062016-06-24 Memoria DISEASE DISEASE 08-11 15:35:00 l Active 00:00: Vin 06/10/2016 00 [facility] Obesity Obesity Disease Active 2015-06 Univers (BMI (BMI 0-12 ity of 30-39.9) 30-39.9) 00:00: [place] [address] Medical Branch Hyperosmol Hyperosmol Disease Active 2015-06 U viviana ar ar 0-12 ity of non-ketoti non-ketoti 00:[place] c state in c state in 00 Me dical patient patient Branch with 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 Hyperglyce Hyperglyce Disease Active 2015-06 U viviana maryam maryam 0-11 ity of 00:00: [place] [address] Medical Branch Diabetic Diabetic Disease Active Unive rs ulcer of ulcer of 5-07 ity of both feet [place] 00:[place] associated associated 00 Me dical with type with type Bran ch 2 diabetes 2 diabetes mellitus mellitus SANJUANA (acute SANJUANA (acute Disease Active U viviana kidney kidney 5-07 ity of injury) injury) 00:00: [place] [facility] Depression Depression Disease Active U jessicaers 5-07 ity of 00:00: [place] [address] Medical Branch Bipolar 1 Bipolar 1 Disease Active Uni vers disorder disorder 5-07 ity of 00:00: [place] [address] Medical Branch Suicidal Suicidal Disease Active Unive rs ideation ideation 5-05 ity of 00:00: [place] [address] Medical Branch 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, 1.5, 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 00 Medical Branch Hematuria, Hematuria, Disease Active U nivsilvia undiagnose undiagnose 2-16 it y of d [...] 00:00: [place] cancer in cancer in 00 [facility] tawnya female female Branch Family Family Disease Active 2014-06 Univers history of history of 1-13 it y of ovarian ovarian 00:00: [place] cancer cancer 00 Medical Branch Galactorrh Galactorrh Disease Active 2014-06 U viviana ea ea 1-13 ity of 00:00: [place] [address] Medical Branch History of History of Disease Active 2014-06 U viviana tubal tubal 1-13 ity of ligation ligation 00:00: [place] [address] Medical Branch Excessive Excessive Disease Active 2014-06 Uni vers or or 1-13 ity of frequent frequent 00:00: [place] menstruati menstruati 00 Me dical on on Branch Tobacco Tobacco Disease Active 2014-06 Univers use use 1-13 ity of disorder disorder 00:00: [place] 00 Medical Branch ABDOMINAL ABDOMINAL Diagnosis Active 2014-06-26 Memoria PAIN, PAIN, 06-26 05:44:00 l SEIZURES SEIZURES 00:00: Jake gonzalez Active 00 06/26/2013 [facility] ABD PAIN ABD PAIN Diagnosis Active 2012-062013-04-19 Memoria Active 0 21:51:00 l 04/14/2013 19:00: Jake gonzalez [address] GASTROPERI GASTROPER Diagnosis Active 2012-09-13 Memoria SIS DAISY 2-12 15:17:00 l Active 00:00: Vin 08/02/2012 [facility] ABDOMINAL Diagnosis Active 2012-03-14 Memoria PAIN ABDOMINAL 03-14 16:56:00 l PAIN 14:00: Vin Active 03/14/2012 [facility] NAUSEA, NAUSEA, Diagnosis Active 2012-03-14 Memoria VOMITING VOMITING 03-14 13:25:00 l Active 08:00: [place] 03/14/2012 00 [facility] N/V N/V Diagnosis Active 2011-12-08 Mem oria INABILITY INABILITY 11-27 11:14:00 l TO TO 00:00: Vin TOLERATE TOLERATE 00 PO PO Active 11/28/2011 [facility] VOMITTING VOMITTING Diagnosis Active 2011-11-28 Memoria Active 11-27 16:28:00 l 11/28/2011 00:00: Jake n [address] VOMITTING, Diagnosis Active 2011-09-18 Memoria HIGH BLOOD VOMITTING, 09-17 09:45:00 l SUGAR HIGH BLOOD 00:00: Jake n SUGAR 00 Active 09/18/2011 [facility] Methicilli Problem Active 2021-01-31 M emorijovita n Methicilli 08-31 22:29:25 l resistant n 00:00: Vin 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 [facility] MRSA MRSA Problem Active 2012-03-16 Memor ia Active 08-31 09:11:30 l 09/01/2011 00:00: Jake n Problem 00 03/16/2012 - Elbow [id number] emily added by Discern Expert. [facility] VOMITING, VOMITING, Diagnosis Active 2011-09-01 [facility] BLOOD BLOOD 08-30 03:19:00 l SUGAR SUGAR 00:00: Vin READINGS READINGS 00 HIGH HIGH Active 08/31/2011 [facility] ELBOW ELBOW Diagnosis Active 2011-09-10 Mem oria ABSCESS/HY ABSCESS/HY 08-30 16:26:00 l PERGLYCEMI PERGLYCEMI 00:00: Tyrel canales A A Active 00 08/31/2011 [facility] Hypokalemi Hypokalem Problem Active 2012-03-16 Memoria a ia Active 08-22 09:11:30 l 08/23/2011 00:00: Jake n Problem 00 03/16/2012 [facility] DKA DKA Diagnosis Active 2011-08-24 Mem oria Active 11:27:00 l 08/19/2011 00:00: Jake gonzalez [address] VOMITING VOMITING Diagnosis Active 2011-08-19 Memoria Active 16:21:00 l 08/19/2011 00:00: Jake gonzalez [address] Final: Final: Problem 2016-08-02 Mendoza janice Acute Acute 02:46:22 l respirator respirator He rmann y failure, y failure, unspecifie unspecifie d whether d whether with with hypoxia or hypoxia or hypercapni hypercapni a a 08/02/2016 [facility] Hypoglycem Hypoglyce Problem Inactiv 2012-03-16 Memoria ia maryam e 09:11:30 l Inactive Vin Problem 03/16/2012 [facility] Hypoglycem Hypoglyce Problem Inactiv 2013-04-22 Memoria ia maryam e 04:46:33 l (disorder) (disorder) He rmann Inactive Problem 04/22/2013 [facility] Gastropare Gastropar Problem Resolve 2021-01-31 Memoria sis esis d 22:29:25 l (disorder) (disorder) He rmann Resolved Problem 01/31/2021 [facility] Hypertensi Hypertens Problem Resolve 2021-01-31 Memoria ve montse d 22:29:25 l disorder, disorder, Herm naeem systemic systemic arterial arterial (disorder) (disorder) Resolved Problem 01/31/2021 [facility] Psychiatri Psychiatr Problem Resolve 2021-01-31 Memoria c ic d 22:29:25 l behavioral behavioral He rmann disability disability (finding) (finding) Resolved Problem 01/31/2021 [facility] Seizure Seizure Problem Resolve 2021-01-31 M emoria (finding) (finding) d 22:29:25 l Resolved Vin Problem 01/31/2021 [facility] Hypertensi Hypertens Problem Active 2012-03-16 Memoria on ion Active 09:11:30 l Problem [place] 03/16/2012 [facility] Hypomagnes Hypomagne Problem Active 2013-04-22 Memoria emia semia 04:46:33 l Active Vin Problem 04/22/2013 [facility] Nausea and Nausea Problem Active 2012-03-16 Memoria vomiting and 09:11:30 l vomiting Vin Active Problem 03/16/2012 [facility] ENCNTR FOR ENCNTR Diagnosis Active 2020-12-24 Memoria GENERAL FOR 10:39:00 l ADULT GENERAL Vin MEDICAL ADULT EXAM W/ MEDICAL EXAM W/ Active [facility] DMI DMI Diagnosis Active 2011-08-24 Mem oria KETOACD KETOACD 11:27:00 l UNCONTROLD UNCONTROLD He rmann Active [facility] OTHER OTHER Diagnosis Active 2011-09-10 Mem oria GENERAL GENERAL 16:26:00 l SYMPTOMS SYMPTOMS Jake n Active [facility] HEART HEART Diagnosis Active 2016-06-24 Mem oria FAILURE, FAILURE, 15:35:00 l UNSPECIFIE UNSPECIFIE He ally D D Active [facility] ACUTE ACUTE Diagnosis Active 2016-09-09 Mem oria RESPIRATOR RESPIRATOR 09:11:00 l Y FAILURE, Y FAILURE, He ally UNSP W UNSP W HYPOXI HYPOXI Active [facility] Nausea and Nausea Problem Resolve 2021-01-31 2021-01-31 Memoria vomiting and d 6-10 22:29:25 22:29:25 l (disorder) vomiting 00:00: Herm naeem (disorder) 00 Resolved 11/29/2011 Problem 01/31/2021 [facility] Hypokalemi Hypokalem Problem Resolve 2021-01-31 2021-01-31 Memoria a ia d 3- 22:29:25 22:29:25 l (disorder) (disorder) 00:00: He rmann Resolved 00 08/23/2011 Problem 01/31/2021 [facility] Disorder Disorder Problem Resolve 2021-01-31 2021-01-31 Memoria of of d 3- 22:29:25 22:29:25 l magnesium magnesium 00:00: Herm naeem metabolism metabolism 00 (disorder) (disorder) Resolved 08/23/2011 Problem 01/31/2021 [facility] Hyperglyce Hyperglyc Problem Resolve 2021-01-31 2021-01-31 Memoria maryam emia d 3- 22:29:25 22:29:25 l (disorder) (disorder) 00:00: He jagdishann Resolved 00 08/20/2011 Problem 01/31/2021 [facility] Ketoacidos Ketoacido Problem Resolve 2021-01-31 2021-01-31 Memoria is in sis in d 22:29:25 22:29:25 l diabetes diabetes 00:00: Jake gonzalez mellitus mellitus 00 (disorder) (disorder) Resolved 08/19/2011 Problem 01/31/2021 [facility] DKA DKA Problem Resolve 2013-04-22 2013-04-22 Memoria (diabetic (diabetic d 04:46:33 04:46:33 l ketoacidos ketoacidos 00:00: He ally thompson) es) 00 Resolved 08/19/2011 Problem 04/22/2013 [facility] History of Past Illness Condition Condition Condition Status Onset Resolution Last Treating Co mments Source Name Details Category Date Date Treatment Clinician Date Discharge Discharge Problem 2014-06-28 2014-06-28 Memoria Diagnosis: Diagnosis: 06-26 16:34:37 16:34:37 l Gastropare Gastropare 06:00: Tyrel canales sis sis 00 06/26/2014 06/28/2014 [facility] Hyperglyce Hyperglyc Problem Inactiv 2012-03-16 2012-03-16 Memoria maryam live e 08-19 09:11:30 09:11:30 l Inactive 00:00: Vin 08/20/2011 00 Problem 03/16/2012 [facility] Allergies, Adverse [...] 00 Medical Branch Cephalex Propensi Active Hives Method i in ty to 01-18 st adverse 00:00: Hospita reaction 00 l s to drug Cephalex Allergy Active Hives [place] in to 01-18 Health substanc 00:00: e 00 ADHESIVE DRUG Active Med Rash 2016-06 Univers TAPE-KERLINE 2- ity of ICONES 00:00: [place] 00 Medical Branch Adhesive Propensi Active Swelling 2016-06 Tears off M ethodi Tape-Kerline ty to 2-[address] icones adverse 00:00: Hospita reaction 00 l s to drug Adhesive Drug Active Swelling 2016-06 [facility] Tape Allergy [facility] 00:00: 00 Nitrofur Propensi Active Other [...] (See confusion C [facility] Allergy Comments) [facility] Lisinopr Drug [...] Comments) [facility] PENICILL Allergy Active High [facility] ZOLPIDEM Allergy [facility] LISINOPR Allergy Active Other [facility] [place] [facility] GUAIFENE Allergy Active Other [facility] Nitrofur [...] with nitrofura ntoinLive r failure Liver failure NITROFUR Allergy Active High Anaphylaxis [facility] ANTOIN 01-03 MONOHYD/ 00:00: M-CRYST 00 KETOROLA DRUG Active High Swelling Univer s C INGREDI 12-13 ity of TROMETHA 00:00: [facility] 00 Medical Branch Ketorola Propensi Active Swelling [...] angioede m Univers il ty to comments 011 a ity of adverse 00:00: [place] reaction 00 Medical s Branch LISINOPR DRUG Active Other-Cmnt 2015-06 Univ ers [place] INGREDI 0 ity of 00:00: [place] 00 Medical Branch [...] Other (See forgetful Methodi ty to Comments) [address] adverse 00:00: reaction( Hospit a [...] Univer s 12-30 ity of 00:00: [place] [facility] Branch Guaifene Propensi Active Other (See Other [...] nessnumbn essnumbne ssnumbnes s Penicill Propensi Active Shortness Of 2010-06 Airway Methodi ins ty to Breath 2- closureOt st adverse 00:00: her Hospita reaction 00 reaction( l s to s): drug HivesAirw ay closure Penicill Propensi Active Anaphylaxis [...] l Vin codeine codeine Active Memoria l [place] morphine morphine Active Memori a l Vin lisinopr lisinopr Active Memori a il il l Vin Adhesive Adhesive Active Memori a Tape Tape l [place] Ambien Ambien Active Memoria l [place] Prolex Prolex Active Memoria DM DM l [place] penicill Drug Active [facility] lisinopr Drug Active [facility] Ambien Drug Active [facility] Prolixin Drug Active [facility] penicill Drug Active [facility] lisinopr Drug Active [facility] Ambien Drug Active [facility] Prolixin Drug Active [facility] Tape Other Active [facility] penicill Drug Active [facility] lisinopr Drug Active [facility] Ambien Drug Active [facility] Prolixin Drug Active [facility] codeine Drug Active [facility] penicill Drug Active [facility] in [facility] lisinopr Drug Active [facility] Ambien Drug Active [facility] Prolixin Drug Active [facility] codeine Drug Active [facility] penicill Drug Active [facility] lisinopr Drug Active [facility] Ambien Drug Active [facility] Prolixin Drug Active [facility] penicill Drug Active [facility] lisinopr Drug Active [facility] Ambien Drug Active [facility] Prolixin Drug Active [facility] penicill Drug Active . in [facility] lisinopr Drug Active [facility] Ambien Drug Active [facility] Prolixin Drug Active [facility] Social History Social Habit Start Date Stop Date Quantity Comments Source History of tobacco Cigarette Smoker [facility] Exposure to Yes [facility] SARS-CoV-2 (event) Hospit al Alcohol intake 2021-06-18 2021-06-18 Ex-drinker [facility] 00:00:00 00:00:00 (finding) Hospital Tobacco use and 2021-05-14 2021-05-14 Smokeless tobacco [facility] exposure 00:00:00 00:00:00 non-user Hospital Cigarettes smoked 2021-05-14 2021-05-14 [facility] current (pack per 00:00:00 00:00:00 Hospita l day) - Reported Cigarette 2021-05-14 2021-05-14 [facility] pack-years 00:00:00 00:00:00 Hospital Social History 2020-12-24 2020-12-24 [facility] 15:49:37 15:49:37 Tobacco Comment 2017-11-12 2017-11-12 5 cigarettes per Met [facility]ist 00:00:00 00:00:00 day Hospital Sex [facility]igned At [birth year] [facility] 00:[facility] Hospital Smoking Status Start Date Stop Date Source Smokes tobacco daily 2021-05-14 00:00:00 [facility] Former smoker 2020-06-27 00:00:00 2020-06-27 00:00:00 [facility] Medications Ordered Filled Start Stop Current Ordering Indication Dosage Frequency Signature Comments Components Source Medication Medication Date Date Medication? Clinician (SIG) Name Name calcium Yes 1334mg Q.[id number] Take 1,334 Methodi acetate,domingo 1-18 [id number] mg by s t sphat bind, 13:02: 3D mouth 3 Hos whit (Phoslyra) 39 (three) l 667 mg (169 times a mg day. calcium)/5 mL solution cyproheptad Yes 4mg Q.[id number] Take 4 mg Methodi ine 1-18 [id number] by mouth [address] (PERIACTIN) 13:02: 3D (three) Hos whit 4 mg tablet 39 times a l day as needed for allergies. buPROPion 202-0 Yes 300mg QD Take 300 Met hodi XL 1-[address] (WELLBUTRIN 13:02: mouth Hospi ta XL) 300 MG 39 daily. l 24 hr tablet ascorbic 2022-0 Yes 500mg Q.[id number] Take 500 Methodi acid, 1-[id number] vitamin C, 13:02: 3D [...] jo-ann 39 l calcium 2021-0 Yes 667mg Q.[id number] Take 667 Methodi acetate 1-[id number] (PHOSLO) 13:02: 3D mouth [...] 39 nightly. l calcium 2021-0 Yes 1334mg Q.[id number] Take 1,334 Methodi acetate,domingo 1-18 [id number] mg by s t sphat bind, 13:02: 3D mouth 3 Hos whit (Phoslyra) 39 (three) l 667 mg (169 times a mg day. calcium)/5 mL solution cyproheptad 2021-0 Yes 4mg Q.[id number] Take 4 mg Methodi ine 1-18 [id number] by mouth [address] (PERIACTIN) 13:02: 3D (three) Hos whit 4 mg tablet 39 times a l day as needed for allergies. buPROPion 2021-0 Yes 300mg QD Take 300 Met hodi XL 1-[address] (WELLBUTRIN 13:02: mouth Hospi ta XL) 300 MG 39 daily. l 24 hr tablet ascorbic 2022-0 Yes 500mg Q.[id number] Take 500 Methodi acid, 1-[id number] vitamin C, 13:02: 3D mouth 3 Hosp jo-ann (ascorbic 39 (three) l acid with times a sia hips) day. 500 MG tablet clonAZEPAM 2022-0 Yes .5mg Take 0.5 Met hodi (KlonoPIN) 1-[address] 0.5 MG 13:02: mouth as Hospita tablet 39 needed for l anxiety. glipiZIDE 2022-0 Yes 5mg Take 5 mg Met hodi (GLUCOTROL) 1-[address] 5 MG tablet 13:02: daily. Hosp jo-ann 39 l calcium 2-0 Yes 667mg Q.[id number] Take 667 Methodi acetate 1-[id number] (PHOSLO) 13:02: 3D mouth [...] l MCG tablet times a day. doxazosin 2022-0 Yes 4mg QD Take 4 mg Met hodi (CARDURA) 4 1-[address] MG tablet 13:02: nightly. Hosp jo-ann 39 l cholecalcif 2022-0 Yes 5000U Take 5,000 Methodi mansi, 1-[address] vitamin D3, 13:02: mouth Hospi ta (VITAMIN 39 daily. l D3) 5,000 unit tablet metoprolol 0 Yes 50mg QD Take 50 mg M ethodi succinate -[address] XL 13:02: daily. Hospita [...] Q.5D Take 15 mg Me thodi (BUSPAR) -[address] 7.5 MG 13:02: (two) Hospita tablet 39 times a l day. 2 traZODone 0 Yes 150mg QD Take 150 Met hodi (DESYREL) 1-[address] 150 MG 13:02: mouth Hospita tablet 39 nightly. l calcium 2021-0 Yes 1334mg Q.[id number] Take 1,334 Methodi acetate,domingo 1-18 [id number] mg by s t sphat bind, 13:02: 3D mouth 3 Hos whit (Phoslyra) 39 (three) l 667 mg (169 times a mg day. calcium)/5 mL solution cyproheptad 0 Yes 4mg Q.[id number] Take 4 mg Methodi ine -18 [id number] mouth [address] (PERIACTIN) 13:02: 3D (three) Hos whit 4 mg tablet 39 times a l day as needed for allergies. buPROPion 0 Yes 300mg QD Take 300 Met hodi XL 1-[address] (WELLBUTRIN 13:02: mouth Hospi ta XL) 300 MG 39 daily. l 24 hr tablet ascorbic 2021-0 Yes 500mg Q.[id number] Take 500 Methodi acid, 1-[id number] vitamin C, 13:02: 3D [...] jo-ann 39 l calcium 2021-0 Yes 667mg Q.[id number] Take 667 Methodi acetate 1-[id number] (PHOSLO) 13:02: 3D mouth [...] l 50 mg 24 hr tablet divalproex 2022-0 Yes 500mg Q.5D Take 500 Me thodi [...] 39 nightly. l calcium 2021-0 Yes 1334mg Q.[id number] Take 1,334 Methodi acetate,domingo 1-18 [id number] mg by s t sphat bind, 13:02: 3D mouth 3 Hos whit (Phoslyra) 39 (three) l 667 mg (169 times a mg day. calcium)/5 mL solution cyproheptad 2021-0 Yes 4mg Q.[id number] Take 4 mg [facility] ine 1-18 [id number] [address] mouth [address] (PERIACTIN) 13:02: 3D (three) Hos whit 4 mg tablet 39 times a l day as needed for allergies. buPROPion 2021-0 Yes 300mg QD Take 300 Met hodi XL 1-[address] (WELLBUTRIN 13:02: mouth Hospi ta XL) 300 MG 39 daily. l 24 hr tablet ascorbic 2021-0 Yes 500mg Q.[id number] Take 500 [facility] acid, 1-[id number] vitamin C, 13:02: 3D [...] jo-ann 39 l calcium 2022-0 Yes 667mg Q.[id number] Take 667 [facility] acetate 1-[id number] (PHOSLO) 13:02: 3D mouth [...] l 50 mg 24 hr tablet divalproex 2022-0 Yes 500mg Q.5D Take 500 Me thodi [...] 39 nightly. l calcium 2021-0 Yes 1334mg Q.05890804 Take 1,334 [facility] acetate,domingo 1-18 [id number] mg by s t sphat bind, 13:02: 3D mouth 3 Hos whit (Phoslyra) 39 (three) l 667 mg (169 times a mg day. calcium)/5 mL solution cyproheptad 2021-0 Yes 4mg Q.00621300 Take 4 mg [facility] ine 1-18 [id number] [address] mouth [address] (PERIACTIN) 13:02: 3D (three) Hos whit 4 mg tablet 39 times a l day as needed for allergies. buPROPion 2021-0 Yes 300mg QD Take 300 Met hodi XL 1-[address] (WELLBUTRIN 13:02: mouth Hospi ta XL) 300 MG 39 daily. l 24 hr tablet ascorbic 2021-0 Yes 500mg Q.50416245 Take 500 [facility] acid, 1-[id number] vitamin C, 13:02: 3D mouth 3 Hosp jo-ann (ascorbic 39 (three) l acid with times a sia hips) day. 500 MG tablet clonAZEPAM 2021-0 Yes .5mg Take 0.5 Met hodi (KlonoPIN) 1-[address] 0.5 MG 13:02: mouth as Hospita tablet 39 needed for l anxiety. glipiZIDE 2-0 Yes 5mg Take 5 mg Met hodi (GLUCOTROL) 1-[address] 5 MG tablet 13:02: daily. Hosp jo-ann 39 l calcium 2022-0 Yes 667mg Q.49057879 Take 667 [facility] acetate 1-[id number] (PHOSLO) 13:02: 3D mouth [...] 39 nightly. l calcium 2021-0 Yes 1334mg Q.31139142 Take 1,334 [facility] acetate,domingo 1-18 [id number] mg by s t sphat bind, 13:02: 3D mouth 3 Hos whit (Phoslyra) 39 (three) l 667 mg (169 times a mg day. calcium)/5 mL solution cyproheptad 2021-0 Yes 4mg Q.04196053 Take 4 mg [facility] ine 1-18 [id number] [address] mouth [address] (PERIACTIN) 13:02: 3D (three) Hos whit 4 mg tablet 39 times a l day as needed for allergies. buPROPion 2021-0 Yes 300mg QD Take 300 Met hodi XL 1-[address] (WELLBUTRIN 13:02: mouth Hospi ta XL) 300 MG 39 daily. l 24 hr tablet ascorbic 2021-0 Yes 500mg Q.24714453 Take 500 [facility] acid, 1-[id number] vitamin C, 13:02: 3D mouth 3 Hosp jo-ann (ascorbic 39 (three) l acid with times a sia hips) day. 500 MG tablet clonAZEPAM 0 Yes .5mg Take 0.5 Met hodi (KlonoPIN) 1-[address] 0.5 MG 13:02: mouth as Hospita tablet 39 needed for l anxiety. glipiZIDE 0 Yes 5mg Take 5 mg Met hodi (GLUCOTROL) 1-[address] 5 MG tablet 13:02: daily. Hosp jo-ann 39 l calcium 2021-0 Yes 667mg Q.16398711 Take 667 [facility] acetate 1-[id number] (PHOSLO) 13:02: 3D mouth 3 Hospit a 667 mg 39 (three) l capsule times a day with meals. Takes 7 pills with every meal and snack. Patient States meal or snack per day. sertraline 0 Yes 50mg QD Take 50 mg M [...] mouth Hospita tablet 39 nightly. l calcium 2022-0 Yes 1334mg Q.05622900 Take 1,334 [facility] acetate,domingo 1-18 [id number] mg by s t sphat bind, 13:02: 3D mouth 3 Hos whit (Phoslyra) 39 (three) l 667 mg (169 times a mg day. calcium)/5 mL solution cyproheptad 2021-0 Yes 4mg Q.00446610 Take 4 mg [facility] ine 1-18 [id number] [address] mouth [address] (PERIACTIN) 13:02: 3D (three) Hos whit 4 mg tablet 39 times a l day as needed for allergies. buPROPion 2021-0 Yes 300mg QD Take 300 Met hodi XL 1-[address] (WELLBUTRIN 13:02: mouth Hospi ta XL) 300 MG 39 daily. l 24 hr tablet ascorbic 2021-0 Yes 500mg Q.17827795 Take 500 [facility] acid, 1-[address] vitamin C, 13:02: 3D [...] jo-ann 39 l calcium 2021-0 Yes 667mg Q.58837055 Take 667 [facility] acetate 1-[id number] (PHOSLO) 13:02: 3D mouth [...] l MCG tablet times a day. doxazosin 2-0 Yes 4mg QD Take 4 mg Met hodi (CARDURA) 4 1-[address] MG tablet 13:02: nightly. Hosp jo-ann 39 l cholecalcif 2022-0 Yes 5000U Take 5,000 Methodi mansi, 1-18 [...] 13:02: mouth Hospita tablet 39 nightly. l cyanocobala 2022-0 Yes 1000ug Q.5D Take 1,000 [facility] min 1-[address] (VITAMIN 13:02: mouth 2 Hospit a B-12) 1000 39 (two) l MCG tablet times a day. doxazosin 2022-0 Yes 4mg QD Take 4 mg Met hodi (CARDURA) 4 1-[address] MG tablet 13:02: nightly. Hosp jo-ann 39 l cholecalcif 2022-0 Yes 5000U Take 5,000 [facility] mansi, 1-[address] vitamin D3, 13:02: mouth Hospi ta (VITAMIN 39 daily. l D3) 5,000 unit tablet metoprolol 2021-0 Yes 50mg QD Take 50 mg M ethodi succinate -[address] XL 13:02: daily. Hospita [...] Q.5D Take 15 mg Me thodi (BUSPAR) -[address] 7.5 MG 13:02: (two) Hospita tablet 39 times a l day. 2 traZODone 0 Yes 150mg QD Take 150 Met hodi (DESYREL) 1-[address] 150 MG 13:02: mouth Hospita tablet 39 nightly. l calcium 2021-0 Yes 1334mg Q.49105268 Take 1,334 [facility] acetate,domingo 1-18 [id number] mg by s t sphat bind, 13:02: 3D mouth 3 Hos whit (Phoslyra) 39 (three) l 667 mg (169 times a mg day. calcium)/5 mL solution cyproheptad 2021-0 Yes 4mg Q.47995775 Take 4 mg [facility] ine 1-18 [id number] [address] mouth [address] (PERIACTIN) 13:02: 3D (three) Hos whit 4 mg tablet 39 times a l day as needed for allergies. buPROPion 2021-0 Yes 300mg QD Take 300 Met hodi XL 1-[address] (WELLBUTRIN 13:02: mouth Hospi ta XL) 300 MG 39 daily. l 24 hr tablet ascorbic 2021-0 Yes 500mg Q.44815386 Take 500 [facility] acid, 1-[id number] vitamin C, 13:02: 3D mouth 3 Hosp jo-ann (ascorbic 39 (three) l acid with times a sia hips) day. 500 MG tablet clonAZEPAM 0 Yes .5mg Take 0.5 Met hodi (KlonoPIN) 1-[address] 0.5 MG 13:02: mouth as Hospita tablet 39 needed for l anxiety. glipiZIDE 0 Yes 5mg Take 5 mg Met hodi (GLUCOTROL) 1-[address] 5 MG tablet 13:02: daily. Hosp jo-ann 39 l calcium 2021-0 Yes 667mg Q.20664560 Take 667 [facility] acetate 1-[id number] (PHOSLO) 13:02: 3D mouth 3 Hospit a 667 mg 39 (three) l capsule times a day with meals. Takes 7 pills with every meal and snack. Patient States meal or snack per day. sertraline 0 Yes 50mg QD Take 50 mg M ethodi (ZOLOFT) 50 1-[address] MG tablet 13:02: daily. Hospit a 39 l furosemide 0 Yes 80mg Q.5D Take 80 mg M ethodi (LASIX) 80 1-[address] mg tablet 13:02: (two) Hospita 39 times a l day. folic 0 Yes 800mg Take 800 [facility] acid/vit B 1-[address] complex and 13:02: mouth Hospi ta C 39 daily. l (DIALYVITE 800 ORAL) apixaban 2020-06- No 10mg Q.5D Take 10 mg Me th[facility] (ELIQUIS) 5 -18 06- by mouth 2 s t mg tablet 18:13: 00:00 (two) Hospit a 51 :00 times a l day. Takes 10 mg in morning and 5 mg at night apixaban 2020-06- No 10mg Q.5D Take 10 mg Me th[facility] (ELIQUIS) 5 -18 06- by mouth 2 s t mg tablet 18:13: 00:00 (two) Hospit a 51 :00 times a l day. Takes 10 mg in morning and 5 mg at night apixaban 2020-06- No 10mg Q.5D Take 10 mg Me th[facility] (ELIQUIS) 5 -18 06- by mouth 2 s t mg tablet [...] mg at night vancomycin 2020-06- No 750mg Q.84424739 Infuse 750 [facility] 750 mg in 07-08 [id number] mg [address] a [address] sodium 00:00: 05:59 3W venous Hospita chloride 00 :00 catheter 3 l 0.9% 250 mL (three) IVPB times a week for 19 days. Administer 3 times weekly in dialysis vancomycin 2020-06- No 750mg Q.70761033 Infuse 750 [facility] 750 mg in 07-08 [id number] mg [address] a [address] sodium 00:00: 05:59 3W venous Hospita chloride 00 :00 catheter 3 l 0.9% 250 mL (three) IVPB times a week for 19 days. Administer 3 times weekly in dialysis vancomycin 2020-06- No 750mg Q.38201776 Infuse 750 [facility] 750 mg in 07-08 [id number] mg [address] a [address] sodium 00:00: 05:59 3W venous Hospita chloride 00 :00 catheter 3 l 0.9% 250 mL (three) IVPB times a week for 19 days. Administer 3 times weekly in dialysis vancomycin 2020-06- No 750mg Q.89996344 Infuse 750 [facility] 750 mg in 07-08 [id number] mg into a [address] sodium 00:00: 05:59 3W venous Hospita chloride 00 :00 catheter 3 l 0.9% 250 mL (three) IVPB times a week for 19 days. Administer 3 times weekly in dialysis vancomycin 2020-06- No 750mg Q.91039510 Infuse 750 [facility] 750 mg in 07-08 [id number] mg into a [address] sodium 00:00: 05:59 3W venous Hospita chloride 00 :00 catheter 3 l 0.9% 250 mL (three) IVPB times a week for 19 days. Administer 3 times weekly in dialysis vancomycin 2020-06- No 750mg Q.01215716 Infuse 750 [facility] 750 mg in 07-08 [id number] mg [address] a [address] sodium 00:00: 05:59 3W venous Hospita chloride 00 :00 catheter 3 l 0.9% 250 mL (three) IVPB times a week for 19 days. Administer 3 times weekly in dialysis vancomycin 2020-06- No 750mg Q.11600336 Infuse 750 [facility] 750 mg in 07-08 [id number] mg into a [address] sodium 00:00: 05:59 3W venous Hospita chloride 00 :00 catheter 3 l 0.9% 250 mL (three) IVPB times a week for 19 days. Administer 3 times weekly in dialysis vancomycin 2020-06- No 750mg Q.74378561 Infuse 750 [facility] 750 mg in 07-08 [id number] mg into a [address] sodium 00:00: 05:59 3W venous Hospita chloride 00 :00 catheter 3 l 0.9% 250 mL (three) IVPB times a week for 19 days. Administer 3 times weekly in dialysis HYDROcodone 2020-06 1{tbl} Q6H Take 1 [facility] -acetaminop 2-19 07- tablet by [facility] hen ([facility]) 00:00: 05:59 mouth Hosp jo-ann 5-325 mg 00 :00 every 6 l per tablet (six) hours as needed for severe pain for up to 5 days .acute pain. Max Daily Amount: 4 tablets HYDROcodone 2020-06 1{tbl} Q6H Take 1 [facility] -acetaminop 2-06-[address] hen ([facility]) 00:00: 05:59 mouth Hosp jo-ann 5-325 mg 00 :00 every 6 l per tablet (six) hours as needed for severe pain for up to 5 days .acute pain. Max Daily Amount: 4 tablets HYDROcodone 2020-06 1{tbl} Q6H Take 1 [facility] -acetaminop 2-19 07-[address] hen ([facility]) 00:00: 05:59 mouth Hosp jo-ann 5-325 mg 00 :00 every 6 l per tablet (six) hours as needed for severe pain for up to 5 days .acute pain. Max Daily Amount: 4 tablets HYDROcodone 2020-06 1{tbl} Q6H Take 1 [facility] -acetaminop 2-19 07-[address] hen ([facility]) 00:00: 05:59 mouth Hosp jo-ann 5-325 mg 00 :00 every 6 l per tablet (six) hours as needed for severe pain for up to 5 days .acute pain. Max Daily Amount: 4 tablets HYDROcodone 2020-06 1{tbl} Q6H Take 1 [facility] -acetaminop 2-29 -[address] hen ([facility]) 00:00: 05:59 mouth [facility]osp jo-ann 5-325 mg 00 :00 every 6 l per tablet (six) hours as needed for severe pain for up to 5 days .acute pain. Max Daily Amount: 4 tablets HYDROcodone 2020-06 No [id number] 1{tbl} Q6H Take 1 [facility] -acetaminop 2-29 -[address] hen ([facility]) 00:00: 05:59 mouth [facility]osp jo-ann 5-325 mg 00 :00 every 6 l per tablet (six) hours as needed for severe pain for up to 5 days .acute pain. Max Daily Amount: 4 tablets HYDROcodone 2020-06- No [id number] 1{tbl} Q6H Take 1 [facility] -acetaminop 2-29 -[address] hen ([employer]) 00:00: 05:59 mouth Hosp jo-ann 5-325 mg 00 :00 every 6 l per tablet (six) hours as needed for severe pain for up to 5 days .acute pain. Max Daily Amount: 4 tablets HYDROcodone 2020-06 No [id number] 1{tbl} Q6H Take 1 [facility] -acetaminop 2-19 07- tablet by [employer] ([employer]) 00:00: 05:59 mouth Hosp jo-ann 5-325 mg 00 :00 every 6 l per tablet (six) hours as needed for severe pain for up to 5 days .acute pain. Max Daily Amount: 4 tablets spironolact 2020-06- No 50mg QD Take 50 mg [facility] one 2-16 12-[address] (ALDACTONE) 10:21: 00:00 daily. Hos whit 50 MG 19 :00 l tablet spironolact 2020-06- No 50mg QD Take 50 mg [facility] one 2-16 12-[address] (ALDACTONE) 10:21: 00:00 daily. Hos whit 50 MG 19 :00 l tablet spironolact 2020-06- No 50mg QD Take 50 mg [facility] one 2-16 12-[address] (ALDACTONE) 10:21: 00:00 daily. Hos whit 50 MG 19 :00 l tablet spironolact 2020-06- No 50mg QD Take 50 mg [facility] one 2-16 12-[address] (ALDACTONE) 10:21: 00:00 daily. Hos whit 50 MG 19 :00 l tablet spironolact 2020-06- No 50mg QD Take 50 mg [facility] one 2-16 12-[address] (ALDACTONE) 10:21: 00:00 daily. Hos whit 50 MG 19 :00 l tablet spironolact 2020-06- No 50mg QD Take 50 mg [facility] one 2-16 12-[address] (ALDACTONE) 10:21: 00:00 daily. Hos whit 50 MG 19 :00 l tablet spironolact 2020-06- No 50mg QD Take 50 mg [facility] one 2-16 12-[address] (ALDACTONE) 10:21: 00:00 daily. Hos whit 50 MG 19 :00 l tablet spironolact 2020-06- No 50mg QD Take 50 mg [facility] one 2- 12-[address] (ALDACTONE) 10:21: 00:00 daily. Hos whit 50 MG 19 :00 l tablet clopidogreL 2020-06- No 75mg QD Take 1 [...] QD Take 1 M ethodi docusate 2-[address] sodium 00:00: 05:59 mouth Hospita (SENOKOT-S) 00 :00 nightly l 8.6-50 mg for 30 per tablet days. gabapentin 2020-06 No 300mg QD Take 1 Met hodi (NEURONTIN) 2-10 19-[address] 300 mg 00:00: 05:59 (300 mg Hospita capsule 00 :00 total) by l mouth daily for 30 days. sennosides- 2021-1 2022- No 1{tbl} QD Take 1 M ethodi docusate 2-05 -[address] sodium 00:00: 05:59 mouth Hospita (SENOKOT-S) 00 :00 nightly l 8.6-50 mg for 30 per tablet days. gabapentin 2020-06- No 300mg QD Take 1 Met hodi (NEURONTIN) 2-05 -[address] 300 mg 00:00: 05:59 (300 mg Hospita capsule 00 :00 total) by l mouth daily for 30 days. sennosides- 2020-06- No 1{tbl} QD Take 1 M ethodi docusate 2-05 -[address] sodium 00:00: 05:59 mouth Hospita (SENOKOT-S) 00 :00 nightly l 8.6-50 mg for 30 per tablet days. gabapentin 2020-06- No 300mg QD Take 1 Met hodi (NEURONTIN) 2-05 -[address] 300 mg 00:00: 05:59 (300 mg Hospita capsule 00 :00 total) by l mouth daily for 30 days. sennosides- 2020-06- No 1{tbl} QD Take 1 M ethodi docusate 2-10 19-[address] sodium 00:00: 05:59 mouth Hospita (SENOKOT-S) 00 :00 nightly l 8.6-50 mg for 30 per tablet days. gabapentin 2020-06- No 300mg QD Take 1 Met hodi (NEURONTIN) 2-05 -[address] 300 mg 00:00: 05:59 (300 mg Hospita capsule 00 :00 total) by l mouth daily for 30 days. sennosides- 2020-06- No 1{tbl} QD Take 1 M ethodi docusate 2-05 -[address] sodium 00:00: 05:59 mouth Hospita (SENOKOT-S) 00 :00 nightly l 8.6-50 mg for 30 per tablet days. gabapentin 2020-06- No 300mg QD Take 1 Met hodi (NEURONTIN) 2-05 01-[address] 300 mg 00:00: 05:59 (300 mg Hospita capsule 00 :00 total) by l mouth daily for 30 days. sennosides- 2020-06- No 1{tbl} QD Take 1 M ethodi docusate 2-10 19- tablet by st sodium 00:00: 05:59 mouth Hospita (SENOKOT-S) 00 :00 nightly l 8.6-50 mg for 30 per tablet days. gabapentin 2020-06 300mg QD Take 1 Met hodi (NEURONTIN) 2-10 19- capsule st 300 mg 00:00: 05:59 (300 mg Hospita capsule 00 :00 total) by l mouth daily for 30 days. sennosides- 2020-06 1{tbl} QD Take 1 M ethodi docusate 2-10 19- tablet by st sodium 00:00: 05:59 mouth Hospita (SENOKOT-S) 00 :00 nightly l 8.6-50 mg for 30 per tablet days. HYDROcodone 2020-06 2{tbl} Q8H Take 2 [facility] -acetaminop 2-05 12-13 tablets by s t hen ([facility]arm[facility]) 00:00: 05:59 mouth Hosp jo-ann 5-325 mg 00 :00 every 8 l per tablet (eight) hours as needed for severe pain for up to 7 days .acute pain. Max Daily Amount: 6 tablets HYDROcodone 2020-0628 2{tbl} Q8H Take 2 [facility] -acetaminop 2-05 12-13 tablets by s t hen ([facility]arm[facility]) 00:00: 05:59 mouth Hosp jo-ann 5-325 mg 00 :00 every 8 l per tablet (eight) hours as needed for severe pain for up to 7 days .acute pain. Max Daily Amount: 6 tablets HYDROcodone 2020-0628 2{tbl} Q8H Take 2 [facility] -acetaminop 2-05 12-13 tablets by s t hen (Farm[facility]) 00:00: 05:59 mouth Hosp jo-ann 5-325 mg 00 :00 every 8 l per tablet (eight) hours as needed for severe pain for up to 7 days .acute pain. Max Daily Amount: 6 tablets HYDROcodone 2020-0628 2{tbl} Q8H Take 2 [facility] -acetaminop 2-05 12-13 tablets by s t hen (Farm[facility]) 00:00: 05:59 mouth Hosp jo-ann 5-325 mg 00 :00 every 8 l per tablet (eight) hours as needed for severe pain for up to 7 days .acute pain. Max Daily Amount: 6 tablets HYDROcodone 2020-06 2{tbl} Q8H Take 2 [facility] -acetaminop 2-05 12-13 tablets by s t hen (Farm[facility]) 00:00: 05:59 mouth Hosp jo-ann 5-325 mg 00 :00 every 8 l per tablet (eight) hours as needed for severe pain for up to 7 days .acute pain. Max Daily Amount: 6 tablets HYDROcodone 2020-06 2{tbl} Q8H Take 2 [facility] -acetaminop 2-05 12-13 tablets by s t hen (Farm[facility]) 00:00: 05:59 mouth Hosp jo-ann 5-325 mg 00 :00 every 8 l per tablet (eight) hours as needed for severe pain for up to 7 days .acute pain. Max Daily Amount: 6 tablets HYDROcodone 2020-06 2{tbl} Q8H Take 2 [facility] -acetaminop 2-05 12-13 tablets by s t hen ([facility]arm[facility]) 00:00: 05:59 mouth Hosp jo-ann 5-325 mg 00 :00 every 8 l per tablet (eight) hours as needed for severe pain for up to 7 days .acute pain. Max Daily Amount: 6 tablets HYDROcodone 2020-06 2{tbl} Q8H Take 2 [facility] -acetaminop 2-05 12-13 tablets by s t hen ([facility]arm[facility]) 00:00: 05:59 mouth Hosp jo-ann 5-325 mg 00 :00 every 8 l per tablet (eight) hours as needed for severe pain for up to 7 days .acute pain. Max Daily Amount: 6 tablets predniSONE 2020-06 No [id number] Take M ethodi (DELTASONE) 07-18 Prednisone s t 50 mg 00:00: 00:00 50mg 13 Hospita tablet 00 :00 hours, 7 l hours, and 1 hour prior to scheduled procedure on 05/19/2021 for contrast allergy prophylaxi s. predniSONE 2020-06- No [id number] Take M ethodi (DELTASONE) 07-18 12-05 Prednisone s t 50 mg 00:00: 00:00 50mg 13 Hospita tablet 00 :00 hours, 7 l hours, and 1 hour prior to scheduled procedure on 05/19/2021 for contrast allergy prophylaxi s. predniSONE 2020-06- No [id number] Take M ethodi (DELTASONE) 07-18 12-05 Prednisone s t 50 mg 00:00: 00:00 50mg 13 Hospita tablet 00 :00 hours, 7 l hours, and 1 hour prior to scheduled procedure on 05/19/2021 for contrast allergy prophylaxi s. predniSONE 2020-06- No [id number] Take M ethodi (DELTASONE) 07-18 12-05 Prednisone s t 50 mg 00:00: 00:00 50mg 13 Hospita tablet 00 :00 hours, 7 l hours, and 1 hour prior to scheduled procedure on 05/19/2021 for contrast allergy prophylaxi s. predniSONE 2020-06- No [id number] Take M ethodi (DELTASONE) 07-18 12-05 Prednisone s t 50 mg 00:00: 00:00 50mg 13 Hospita tablet 00 :00 hours, 7 l hours, and 1 hour prior to scheduled procedure on 05/19/2021 for contrast allergy prophylaxi s. predniSONE 2020-06- No [id number] Take M ethodi (DELTASONE) 07-18 12-05 Prednisone s t 50 mg 00:00: 00:00 50mg 13 Hospita tablet 00 :00 hours, 7 l hours, and 1 hour prior to scheduled procedure on 05/19/2021 for contrast allergy prophylaxi s. predniSONE 2020-06- No [id number] Take M ethodi (DELTASONE) 07-18 12-05 Prednisone s t 50 mg 00:00: 00:00 50mg 13 Hospita tablet 00 :00 hours, 7 l hours, and 1 hour prior to scheduled procedure on 05/19/2021 for contrast allergy prophylaxi s. predniSONE 2020-06- No [id number] Take M ethodi (DELTASONE) 07-18 12-05 Prednisone [...] 0-03 by mouth. ity of tablet 11:08: [address] Branch aspirin 81 2020-06 Yes 81mg Take 1 Unive rs mg chewable 0-03 tablet by ity of tablet 11:08: mouth [place] 01 daily. Medical Branch divalproex 2020-06 Yes 500mg Take 500 Un lori ER 0-01 mg by ity of (DEPAKOTE 23:08: mouth 2 [place] ER) 500 mg 36 (two) Medical 24 hr times Branch tablet daily. gabapentin 2020-06 Yes 100mg Take 100 Un lori 100 mg 0-01 mg by ity of capsule 23:08: mouth 2 [place] 36 (two) Medical times Branch daily. vitamin C 2020-06 Yes 2000mg Take 2,000 [facility] with sia 0-01 mg by ity of hips 23:08: mouth 2 [place] (VITAMIN C) 36 (two) Medical 1,000 mg times Branch tablet daily. metoprolol 2020-06 Yes 50mg Take 50 mg U nivers tartrate 50 0-01 by mouth ity of mg tablet 23:08: daily. [address] Branch folic 2020-06 Yes 800mg Take 800 Univers acid/vit B 0-01 mg by ity of complex and 23:08: mouth [place] C 36 daily. Medical (DIALYVITE Branch 800 ORAL) linagliptin 2020-06 Yes Take by Uni vers (TRADJENTA) 0-01 mouth. ity of 5 mg tablet 23:08: [address] Branch spironolact 2020-06 Yes 50mg Take 50 mg Univers one 50 mg 0-01 by mouth ity of tablet 23:08: daily. [address] Branch pravastatin 2020-06 Yes 40mg Take 40 mg Univers 40 mg 0-01 by mouth ity of tablet 23:08: daily. [address] mv-mn/iron/ 2020-06 Yes 1{capsu Take 1 U nivers folic 0-01 le} capsule by ity of acid/herb 23:08: mouth [place] 190 36 daily. Medical (VITAMIN D3 Branch COMPLETE ORAL) SERTraline 2020-06 Yes 50mg Take 50 mg U nivers 50 mg 0-01 by mouth ity of tablet 23:08: daily. [address] Branch calcium 2020-06 Yes 667mg Take 667 Unive rs acetate 667 0-01 mg by ity of mg capsule 23:08: mouth [place] (three) Medical times Branch daily with meals. cetirizine 2020-06 Yes 1{tbl} Take 1 Uni vers HCl/pseudoe 0-01 tablet by ity of phedrine 23:08: mouth [place] (ZYRTEC-D 36 daily. Medical ORAL) Branch furosemide 2020-06 Yes 40mg Take 40 mg U nivers 40 mg 0-01 by mouth 2 ity of tablet 23:08: (two) [place] [address] times Medical daily. Branch divalproex 2020-06 Yes 500mg Take 500 Un lori ER 0-01 mg by ity of (DEPAKOTE 23:08: mouth 2 [place] ER) 500 mg 36 (two) Medical 24 hr times Branch tablet daily. gabapentin 2020-06 Yes 100mg Take 100 Un lori 100 mg 0-01 mg by ity of capsule 23:08: mouth 2 [place] [address] (two) Medical times Branch daily. vitamin C 2020-06 Yes 2000mg Take 2,000 Univers with sia 0-01 mg by ity of hips 23:08: mouth 2 [place] (VITAMIN C) 36 (two) Medical 1,000 mg times Branch tablet daily. metoprolol 2020-06 Yes 50mg Take 50 mg U nivers tartrate 50 0-01 by mouth ity of mg tablet 23:08: daily. [place] [address] Medical Branch folic 2020-06 Yes 800mg Take 800 Univers acid/vit B 0-01 mg by ity of complex and 23:08: mouth [place] C 36 daily. Medical (DIALYVITE Branch 800 ORAL) linagliptin 2020-06 Yes Take by Uni vers (TRADJENTA) 0-01 mouth. ity of 5 mg tablet 23:08: [address] Branch spironolact 2020-06 Yes 50mg Take 50 mg Univers one 50 mg 0-01 by mouth ity of tablet 23:08: daily. [address] Branch pravastatin 2020-06 Yes 40mg Take 40 mg Univers 40 mg 0-01 by mouth ity of tablet 23:08: daily. [address] Branch mv-mn/iron/ 2020-06 Yes 1{capsu Take 1 U nivers folic 0-01 le} capsule by ity of acid/herb 23:08: mouth [place] 190 daily. Medical (VITAMIN D3 Branch COMPLETE ORAL) SERTraline 2020-06 Yes 50mg Take 50 mg U nivers 50 mg 0-01 by mouth ity of tablet 23:08: daily. [place] 36 Medical Branch calcium 2020-06 Yes 667mg Take [...] [place] 36 times Medical daily. Branch BUPROPION 2020-06 No 300mg Take 300 Un lori HCL [...] 8 = 1 mL, l 1999 19:37: IVVin units/mL 00 Q---, preservativ to be e-free given at injectable post solution Dialysis sessions, 0 Refill(s) gabapentin Yes 300 mg = 1 M emoria 300 MG Oral 8-10 cap, PO, l Capsule 19:34: Q---, # [facility] naeem 00 13 cap, 0 Refill(s) amLODIPine Yes 10 mg = 1 Me moria 10 mg oral 8-10 tab, PO, l tablet 19:33: Daily, # [place] 00 30 tab, 2 Refill(s) busPIRone Yes 7.5 mg = 1 Me moria 7.5 mg oral 8-10 tab, PO, l tablet 19:33: BID, 0 Refill(s) buPROPion Yes 75 mg = 1 Mem oria 75 mg oral 8-10 tab, PO, l tablet 19:33: Daily, # [place] 00 14 tab, 0 Refill(s) Norvasc No Notes: Memoria 10 (Same as: l 17:35: Norvasc) [place] Dextrose No 25 gm, 50 [place] janice [...] 01-27 not exceed l 09:29: 4 gm/day. [place] (Same as: Tylenol) tramadol No Notes: Not Mem oria hydrochlori 01-27 to exceed l de 50 MG 09:29: 400mg/day. Her braden Oral Tablet 00 (Same As: Ultram) heparin No Notes: Memoria 01-27 porcine l 02:00: heparin Vin 00 Magnesium No Notes: Memori a Oxide 8-05 (Same as: l 22:54: Mag-Ox 400) Magnesium oxide 189zg=111t g elemental magnesium Dose=____m g magnesium oxide (___mg elemental magnesium) Coreg No Notes: [facility]oria 8-05 Give with l 02:00: food. (Same As: Coreg) Buspar No Notes: [facility] 8-04 (Same As: l 22:00: BuSpar) Fentanyl No Notes: [facility] 8-04 (Same as: l 21:06: Sublimaze) Preservati ve free. Norvasc No Notes: [facility] 8-04 (Same as: l 16:47: Norvasc) Wellbutrin No Notes: Memor ia 8- (Same As: l 16:00: Wellbutrin ) pantoprazol No Notes: For Memoria e 8- IV push l 14:00: reconstitu te with 10 ml 0.9% sodium chloride and push over 2 minutes. (Same as: Protonix) Aspirin 81 No Notes: Memor ia MG Chewable - Take with l Tablet 14:00: food. Vitamin D3 No Notes: Memor ia 5000 intl - Same as : l units oral 14:00: [...] upset. Give with food or milk. Tradjenta 2021-0 No 5 mg, 1 Memor ia 8-04 tab, l 14:00: Route: PO, Drug form: TAB, Daily, Dosing Weight 72, kg, Start date: 01/22/21 9:00:00 CDT Metoprolol No Notes: Memor ia Succinate 8-04 (Same as: l ER 100 mg 14:00: Toprol XL) He rm oral May split tablet, tab, but extended do not release crush. Pravastatin No Notes: Mendoza janice 8-04 (Same as: l 14:00: Pravachol) Zoloft No Notes: Memoria 8-04 (Same as: l 14:00: Zoloft) Tramadol No Notes: Not Mem oria 8-04 to exceed l 09:44: 400mg/day. (Same As: Ultram) Tylenol No Notes: Do Memor ia 8-04 not exceed l 09:44: 4 gm/day. [place] 00 (Same as: Tylenol) Fentanyl No Notes: Memoria 8-04 (Same as: l 09:44: Sublimaze) Preservati ve free. Fentanyl No Notes: Memoria 8-04 (Same as: l 04:46: Sublimaze) Preservati ve free. Fentanyl No Notes: Memoria 8-04 (Same as: l 02:01: Sublimaze) Preservati ve free. Coreg No Notes: Memoria 8-04 Give with l 02:00: food. (Same As: Coreg) Saline No Notes: Memoria Flush 0.9% 8- Same as: l 02:00: BD Posiflush Sterile Valproate No 1,000 mg, Mem oria 8-04 2 tab, l 02:00: Route: PO, Drug form: ERTAB, Bedtime, Start date: 01/21/21 21:00:00 CDT, Duration: 30 day, Stop date: 02/19/21 21:00:00 CDT, 0 heparin 2021-0 No Notes: Memoria 8-03 porcine l 21:00: heparin Dextrose No 12.5 [...] ine 01-21 tab, l 18:00: Route: PO, Drug form: TAB, TID, Dosing Weight 72, kg, Start date: 01/21/21 13:00:00 CDT, Duration: 30 day, Stop date: 02/20/21 9:00:00 CDT Albuterol No Notes: SEE Me nuñez 01-21 RT l 17:49: DOCUMENTAT ION (Same as: Proventil) albuterol No 180 [...] 0.9% 01-21 Same as: l 17:31: BD [place] Posiflush Sterile propofol 10 No Notes: If M emoria mg/mL 01-21 Diprivan - l (Titrate.) 17:31: change Nidia nn IV 1,000 mg 00 bottle & tubing every 12 hr Per state nursing law propofol can only be given by a nurse if patient is intubated or being intubated (unless the nurse is a QUALITY SYSTEMS TECHNICIAN). Same as: Diprivan midazolam No Route: IV, Me moria (ANES) 01-21 Drug form: l 17:18: SOLN, ONCE, Stop date: 01/21/21 12:18:00 CDT fentaNYL No Route: IV, Mem oria (ANES) 01-21 Drug form: l 17:18: INJ, ONCE, Stop date: 01/21/21 12:18:00 CDT niCARdipine No Route: IV, Memoria (ANES) 01-21 Drug form: l 17:18: INJ, ONCE, [place] 00 Stop date: 01/21/21 12:18:00 CDT glycopyrrol No [...] 10:17:00 CDT Hydralazine No Notes: Mendoza janice - (Same as: l 13:16: Apresoline ) Push [...] U T (TRADJENTA 7-16 by mouth 1 a lt PO) 13:03: (one) time 11 each day. Xifaxan 550 Yes 1{tbl} QD Take 1 UT MG tablet 12-25 tablet by Healt h 00:00: mouth 1 00 (one) time each day. rifaximin Yes 550 mg = 1 Me moria 550 MG Oral -06 tab, PO, l Tablet 18:46: TID, # 42 Jake n [XIFAXAN] 00 tab, 2 Refill(s), Pharmacy: [facility], 154.94, cm, 12/24/20 10:43:00 CDT, Height, 71.818, kg, 12/24/20 10:43:00 CDT, Weight {2 (480 ML Yes See Memoria Magnesium 12-24 Instructio l Sulfate 18:12: ns, take Jake n 0.0277 00 as MEQ/ML / directed, potassium give sulfate clenpiq if 0.0374 not MEQ/ML / covered by sodium insurance, sulfate # 1 ea, 0 0.257 Refill(s), MEQ/ML Oral Pharmacy: Solution) } [facility] [Suprep 808, Bowel Prep 154.94, [...] day, # 90 tab, 3 Refill(s), Pharmacy: [id number], 154.94, cm, 12/24/20 10:43:00 CDT, Height, 71.818, kg, 12/24/20 10:43:00 CDT, Weight Zinc Yes 140 mg, Memoria 7-06 PO, Daily, l 15:54: 0 Refill(s) Elderberry 0 Yes 0 Memoria preparation 06 Refill(s) l 15:54: Buspar Yes PO, BID, [...] hr each day. tablet ascorbic Yes 500mg Q.[id number] Take 500 UT acid 5-15 [id number] mg by Health (Vitamin C) 00:00: 3D [...] tablet 00 Medical Branch GLIPIZIDE 5 Yes [id number] TAKE 1 [facility] mg tablet 4-06 TABLET BY ity o f 00:00: MOUTH [place] 00 TWICE Medical DAILY Branch BEFORE BREAKFAST AND BEFORE SUPPER doxazosin 4 2020- No 4mg Take 4 mg Univers mg tablet 06-27- by mouth 2 ity of 10:52: 00:00 (two) [place] 22 :00 times Medical daily. Branch doxazosin 4 0 Yes 4mg Take 1 Univ ers mg tablet 1-07 tablet by ity o f 00:00: mouth at [place] 00 bedtime. Medical Branch doxazosin 4 0 Yes 4mg Take 1 Univ ers mg tablet 1-07 tablet by ity o f 00:00: mouth at [place] 00 bedtime. Medical Branch glipiZIDE 5 2019-06- No [id number] 5mg Take 1 [facility] mg tablet 1-11 [...] by ity of tablet 00:00: mouth at [place] 00 bedtime. Medical Branch traZODone Yes 150mg Take 150 Uni vers 150 mg 8-13 mg by ity of tablet 00:00: mouth at [place] 00 bedtime. Medical Branch erythromyci 2020- No [id number] .5[in_u Place 0.5 Univers n 5 mg/gram [...] ophthalmic needed for drops Dry eyes. artificial 2017- Yes 1[drp] Place 1 Un lori tears,hypro 2-08 Drop in ity o f mellose, 00:00: left eye 4 Baljinder as (ISOPTO 00 (four) Medical TEARS) 0.5 times Branch % daily as ophthalmic needed for drops Dry eyes. sertraline Yes anxiety QD Take by [facility] (ZOLOFT) 7-20 with mouth [facility] 100 MG 15:20: depression daily. Med ical tablet 59 Center medroxyPROG Yes Inject [facility] ESTERone 7-20 intramuscu [facility] (DEPO-PROVE 15:20: larly Medic al RA) 150 59 every 3 Center mg/mL (three) injection months. divalproex Yes depression 500mg QD Take 500 [...] 15:20: daily. Medica l 59 Center hydrALAZINE 2016- Yes 100mg Q.[id number] Take [address] [facility] (APRESOLINE 7-20 [id number] mg by L ukes ) 100 MG 15:20: 3D mouth 3 Medica l tablet 59 (three) Center times daily. magnesium 2017- Yes 400mg QD Take [address] [facility] oxide 7-20 mg by [facility] (MAG-OX) 15:20: mouth Medical 400 mg 59 daily. Center tablet metoclopram 2017-0 Yes 10mg Q.58771309 Take [address] [facility] gadiel HCl 7-20 [id number] by mouth 3 [facility] (REGLAN) 10 15:20: [...] daily. Med ical tablet 59 Center medroxyPROG [address] [facility] ESTERone 7-20 intramuscu [...] l 59 Center hydrALAZINE 2017-0 Yes 100mg Q.18980716 Take [address] [facility] [address] (APRESOLINE 7-20 [id number] mg by L ukes ) 100 MG 15:20: 3D mouth 3 Medica l tablet 59 (three) Center times daily. magnesium 2017-0 Yes 400mg QD Take [address] [facility] oxide 7-20 mg by [facility] (MAG-OX) 15:20: mouth Medical 400 mg 59 daily. Center tablet metoclopram 2017-0 Yes 10mg Q.74085422 Take [address] [facility] gadiel HCl 7-20 [id number] by mouth 3 [facility] (REGLAN) 10 15:20: [...] l 59 Center hydrALAZINE 2017-0 Yes 100mg Q.[id number] Take [address] [facility] (APRESOLINE 7-20 [id number] mg by L ukes ) 100 MG 15:20: 3D mouth 3 Medica l tablet 59 (three) Center times daily. magnesium 2017-0 Yes 400mg QD Take [address] [facility] [address] oxide 7-20 mg by [facility] (MAG-OX) 15:20: mouth Medical 400 mg 59 daily. Center tablet metoclopram 2017-0 Yes 10mg Q.[id number] Take [address] [facility] gadiel HCl 7-20 [id number] by mouth 3 [facility] (REGLAN) 10 15:20: [...] daily. Med ical tablet 59 Center medroxyPROG [address] [facility] ESTERone 7-20 intramuscu [...] l 59 Center hydrALAZINE 2017-0 Yes 100mg Q.91240559 Take [address] [facility] [address] (APRESOLINE 7-20 [id number] mg by L ukes ) 100 MG 15:20: 3D mouth 3 Medica l tablet 59 (three) Center times daily. magnesium 2017-0 Yes 400mg QD Take [address] [facility] [address] oxide 7-20 mg by [facility] (MAG-OX) 15:20: mouth Medical 400 mg 59 daily. Center tablet metoclopram 2017-0 Yes 10mg Q.76919273 Take [address] [facility] gadiel HCl 7-20 [id number] by mouth 3 [facility] (REGLAN) 10 15:20: [...] l 59 Center hydrALAZINE 2017- Yes 100mg Q.74771103 Take [address] [facility] [address] (APRESOLINE 7-20 [id number] mg by Iván jc ) 100 MG 15:20: 3D mouth 3 Medica l tablet 59 (three) Center times daily. magnesium 2017- Yes 400mg QD Take [address] oxide 7-20 mg by [facility] (MAG-OX) 15:20: mouth Medical 400 mg 59 daily. Center tablet metoclopram 2017- Yes 10mg Q.33209952 Take [address] [facility] gadiel HCl 7-20 [id number] by mouth 3 [facility] (REGLAN) 10 15:20: [...] l 59 Center hydrALAZINE 2017-0 Yes 100mg Q.[id number] Take [address] [facility] [address] (APRESOLINE 7-20 [id number] mg by L ukes ) 100 MG 15:20: 3D mouth 3 Medica l tablet 59 (three) Center times daily. magnesium 2017-0 Yes 400mg QD Take [address] oxide 7-20 mg by [facility] (MAG-OX) 15:20: mouth Medical 400 mg 59 daily. Center tablet metoclopram 2017-0 Yes 10mg Q.[id number] Take [address] [facility] [address] gadiel HCl 7-20 [id number] by mouth 3 [facility] (REGLAN) 10 15:20: 3D (three) Med ical MG tablet 59 times Center daily. meclizine 2017-0 Yes 12.5mg Take 12.[address] (ANTIVERT) 7-20 mg by [facility] 25 MG 15:20: mouth 3 Medical tablet 59 (three) Center times daily as needed. insulin 2017-0 Yes 5U QD Inject 5 [...] tab, PO, l Tablet 15:07: Daily, # [place] 00 30 tab, 0 Refill(s), Pharmacy: [facility] Bumex No 0.5 mg, Memoria 2 Route: PO, l 15:00: Drug form: [place] 00 TAB, Daily, Dosing Weight 92.273, kg, Start date: 07/30/16 9:00:00 MISSION ANALYST, Duration: 30 day, Stop date: 08/28/16 9:00:00 MISSION ANALYST Lasix No Notes: Memoria 2-08 (Same as: l 20:05: Lasix) October cause GI upset. Give with food or milk. Hydralazine No Notes: Mendoza janice 2-08 (Same as: l 06:05: Apresoline [place] 00 ) Push over 5 minutes sodium 2016- No 1,000 mL, Memori a chloride 2-05 Rate: 125 l 0.9% 1000 18:26: ml/hr, Jake n ml INJ 00 Infuse 1,000 mL over: 8 hr, Route: IV, Dosing Weight 92.273 kg, Total Volume: 1,000, Start date: 07/26/16 12:26:00 MISSION ANALYST, Duration: 30 day, Stop date: 08/25/16 12:25:00 MISSION ANALYST Sodium 2017- No 500 mL, Memoria Chloride 2-05 500 ml/hr, l 0.154 13:30: Infuse [place] MEQ/ML 00 Over: 1 Injectable hr, Route: Solution IV, 500, Drug form: INJ, ONCE, Priority: STAT, Dosing Weight 92.273 kg, Start date: 07/26/16 7:30:00 MISSION ANALYST, Duration: 1 doses or times, Stop date: 07/26/16 7:30:00 MISSION ANALYST Insulin No 60 units) Mendoza janice regular [...] Weight 92.273, kg, Start date: 07/24/16 9:00:00 MISSION ANALYST, Duration: 30 day, Stop date: 08/22/16 9:00:00 MISSION ANALYST 24 HR No Notes: Memoria Divalproex 2-03 (Same as: l Sodium 500 15:00: Depakote Her braden MG Extended 00 ER) Release Tablet [Depakote] gabapentin No Notes: Memor ia 300 MG Oral 2-03 (Same as: l Capsule 15:00: Neurontin) Herm Aspirin 81 No Notes: Memor ia MG [...] form: ERTAB, Daily, Start date: 07/24/16 9:00:00 MISSION ANALYST, Duration: 30 day, Stop date: 08/22/16 9:00:00 MISSION ANALYST Insulin No Notes: Memoria Glargine 2-03 Same as: l 100 UNT/ML 15:00: Lantus) Do H erm Injectable 00 not hold Solution insulin [Lantus] without contacting prescriber WASTE: F/P - Black; E - Municipal Trash Bin Hydralazine No Notes: Mendoza janice Hydrochlori 2-03 (Same as: l de 100 MG 15:00: Apresoline He rmann Oral Tablet 00 ) May interfere w/enteral feedings Take With Food Ondansetron No Notes: Mendoza janice 2-03 (Same as: l 14:50: Zofran) [place] 00 MEDICATION WASTE Product Size: 4 mg Product Wasted: ___ mg Morphine No Notes: Memoria 2-03 (Same l 14:50: as:MORPhin [place] 00 e Sulfate) Insulin, No Notes: Memoria Aspart, 2- Roll in l Human 13:30: palms of [place] 00 hands gently; Do not shake vigorously . (Same as: NovoLOG) "single patient use only" WASTE: F/P - Black; E - Municipal Trash Bin Stable for 28 days at room temperatur e. Expires in days from ____Date Dilaudid No Notes: Memoria 2-03 Same as l 11:28: Dilaudid Vin 00 Insulin, No Notes: Memoria Aspart, 2-03 Roll in l Human 08:40: palms of [place] 00 hands gently; Do not shake vigorously . (Same as: NovoLOG) "single patient use only" WASTE: F/P - Black; E - Municipal Trash Bin Stable for 28 days at room temperatur e. Expires in days from ____Date Glucagon No 1 mg, Memoria 2-03 Route: IM, l 08:40: Drug form: PDR/INJ, PRN, Dosing Weight 92.273, kg, PRN Blood Glucose Results, Start date: 07/24/16 2:40:00 MISSION ANALYST, Duration: 30 day, Stop date: 08/23/16 2:39:00 MISSION ANALYST Dextrose No 25 gm, 50 Mendoza janice 50% Syringe 2-03 mL, Route: l 08:40: IVP, Drug Form: INJ, Dosing Weight 92.273, kg, PRN, PRN Blood Glucose Results, Start date: 07/24/16 2:40:00 MISSION ANALYST, Duration: 30 day, Stop date: 08/23/16 2:39:00 MISSION ANALYST Docusate No Notes: Memoria 2- (Same as: [...] (Same as: 04:09: Duoneb) Vin Ipratropium 00 Grant 0.167 MG/ML Inhalant Solution [DuoNeb] Furosemide 2015-06 [...] INHALATION l 0.09 16:34: , PRN, PRN [place] MG/ACTUAT 00 as needed Metered for Dose wheezing, Inhaler use as needed for shortness of breath or wheezing, # 8 gm, 0 Refill(s) Aspirin 81 2015-06 Yes 81 mg = 1 Me moria MG Chewable 2-26 tab, PO, l Tablet 16:34: Daily, # [place] 00 30 tab, 0 Refill(s) Hydroxyzine 2015-06 Yes 50 mg = 1 M emoria Hydrochlori 2-26 cap, PO, l de 50 MG 16:34: TID, X 30 Herm naeem Oral 00 day, # 90 Capsule cap, 0 Refill(s) losartan 25 2015-06 Yes 25 mg = 1 M emoria mg oral 2-26 tab, PO, l tablet 16:34: Daily, # [place] 00 30 tab, 0 Refill(s) Lasix 2015-06 No Notes: Memoria 2-26 (Same as: l 15:00: Lasix) May [place] 00 cause GI upset. Give with food or milk. Magnesium 2015-06 No Notes: Memori a Oxide 2-24 (Same as: l 13:36: Mag-Ox [place] 00 400) Magnesium oxide [id number] g elemental magnesium Dose=____m g magnesium oxide (___mg elemental magnesium) Magnesium 2015-06 No Notes: Memori a Oxide 2-24 (Same as: l 09:47: Mag-Ox [place] 00 400) Magnesium oxide 851fp=109k g elemental magnesium Dose=____m g magnesium oxide [...] XL 2-24 (Same as: l 00:00: Wellbutrin [place] 00 XL) "Do Not Crush" Norvasc 2015-06 [...] tab, PO, l tablet 15:35: Daily, 0 [place] 00 Refill(s) pravastatin 2015-06 No 40 mg = 1 M emoria 40 mg oral 2-23 tab, PO, l tablet 15:35: Daily, 0 [place] 00 Refill(s) Sertraline 2015-06 Yes 200 mg [...] AND 1 l Capsule 15:27: CAP AT [place] 00 BEDTIME, 0 Refill(s) Insulin, 2015-06 No [...] 2-22 Route: PO, l 15:00: Drug form: [place] 00 ECTAB, Daily, Dosing Weight 86.364, kg, Start date: 06/11/16 9:00:00 MISSION ANALYST, Duration: 30 day, Stop date: 07/10/16 9:00:00 MISSION ANALYST Insulin 2015-06 No Notes: Memoria Glargine 2-22 Same as: l 100 UNT/ML 15:00: Lantus) Do H ermann Injectable 00 not hold Solution insulin [Lantus] without contacting prescriber WASTE: F/P - Black; E - Municipal Trash Bin Zoloft 2015-06 No Notes: Memoria 2-22 (Same as: l 15:00: Zoloft) Vin 00 Insulin, 2015-06 No Notes: Memoria Aspart, 2- Roll in l Human 12:55: palms of [place] 00 hands gently; Do not shake vigorously [...] - (Same as: l / 03:00: Duoneb) [place] Ipratropium 00 Grant 0.167 MG/ML Inhalant Solution [DuoNeb] gabapentin 2015-06 No 300 mg, Mendoza janice 300 MG Oral - Route: PO, l Capsule 03:00: Drug form: Herm naeem 00 CAP, Q12H, Dosing Weight 86.364, kg, (CrCl 30 - 59 ml/min), Start date: 06/10/16 21:00:00 MISSION ANALYST, Duration: 30 day, Stop date: 07/10/16 9:00:00 MISSION ANALYST divalproex 2015-06 No Notes: Memor ia sodium -22 (Same as: l 03:00: Depakote [place] 00 ER) Once daily dosing; indicated for [...] Blood Glucose Results, Start date: 06/10/16 18:50:00 MISSION ANALYST, Duration: 30 day, Stop date: 07/10/16 18:49:00 MISSION ANALYST Glucagon 2015-06 No 1 mg, Memoria 2-22 Route: IM, l 00:50: Drug form: PDR/INJ, PRN, Dosing Weight 86.364, kg, PRN Blood Glucose Results, Start date: 06/10/16 18:50:00 MISSION ANALYST, Duration: 30 day, Stop date: 07/10/16 18:49:00 MISSION ANALYST Hydralazine 2015-06 No Notes: Mendoza janice 2-22 [...] Weight 86.364, kg, Start date: 06/10/16 18:06:00 MISSION ANALYST, Stop date: 06/10/16 18:06:00 MISSION ANALYST hydrOXYzine 2015-06 No Notes: Mendoza janice pamoate 08-11 (Same as: l 23:00: Vistaril) Furosemide 2015-06 No 60 mg, Memor ia 08-11 Route: l 22:32: IVP, Drug form: INJ, ONCE, Dosing Weight 86.364, kg, Start date: 06/10/16 16:32:00 MISSION ANALYST, Stop date: 06/10/16 16:32:00 MISSION ANALYST Lasix 2015-06 No Notes: Memoria 08-11 (Same as: l 17:22: Lasix) MEDICATION WASTE Product Size: 40 mg Product Wasted: _0__ mg Albuterol 2015-06 No Notes: Memori a 0.833 MG/ML 08-11 (Same as: 17:22: Duoneb) Ipratropium 00 Grant 0.167 MG/ML Inhalant Solution [DuoNeb] Promethazin Yes 25 mg = 1 M emoria e 06 supp, SD, l Hydrochlori 14:45: Q6H, Jake gonzalez de [...] Chloride - 1,000 l 0.154 10:56: ml/hr, [place] MEQ/ML 00 Infuse Injectable Over: 2 Solution hr, Route: IV, 2,000, Drug form: INJ, ONCE, Priority: STAT, Dosing Weight 75 kg, Start date: 06/26/14 4:56:00, Duration: 1 doses or times, Stop date: 06/26/14 4:56:00 Lorazepam No Notes: Memori a -06 (Same as: l 10:56: Ativan) Metoclopram No Notes: Mendoza janice gadiel -06 (Same as: l 10:55: Reglan) Zofran ODT [...] Hung Murillo 5 mg, Me moria Sulfate 9- Marx Route: l 01:15: IVP, ONCE, Dosing Weight 58.636, kg, Priority: STAT, Start date: 03/14/12 20:15:00, Stop date: 03/14/12 20:15:00 Sodium 2011-0 No Hung Murillo 500 mL, Me moria Chloride -24 Marx Rate: 500 l 0.9% 23:45: ml/hr, [...] insulin No Blake 10 unit, Mem oria 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 6-11 Deangelo 0.1 mL, l H 02:00: Route: Vin SUB-Q, Drug form: INJ, Bedtime, Start date: 11/29/11 21:00:00, Duration: 30 day, Stop date: 12/28/11 21:00:00 Insulin No Blake 8 unit, Mendoza janice regular 6-11 Deangelo 0.08 mL, l 02:00: Route: [place] 00 SUB-Q, Drug form: SOLN, Bedtime, Start [...] Omidvar Route: l 21:33: IVP, ONCE, Vin Start date: 11/29/11 16:33:00, Stop date: 11/29/11 16:33:00 morphine 2011- No [place] 2 mg, 0.5 Me moria Sulfate 6-10 Omidvar mL, Route: l 21:32: IVP, Drug form: INJ, ONCE, Start date: 11/29/11 16:32:00, Stop date: 11/29/11 16:32:00 Tylenol No [place] 650 mg, 2 Mem oria 6-10 Omidvar tab, l 19:16: Route: PO, [place] 00 Drug form: TAB, Q4H, PRN Pain, Start date: 11/29/11 14:16:00, Duration: 30 day, Stop date: 12/29/11 14:15:00 insulin No Blake 14 unit, Mem oria 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 6-10 Deangelo 0.14 mL, l H 14:00: Brisa Route: Vin 00 SUB-Q, Drug form: INJ, Daily, Start date: 11/29/11 9:00:00, Duration: 30 day, Stop date: 12/28/11 9:00:00 Insulin No Blake 10 unit, Mem oria regular 6-10 Deangelo 0.1 mL, l 14:00: Brisa Route: [place] 00 SUB-Q, Drug form: SOLN, Daily, Start [...] Route: l 06:30: IVP, Drug Herm naeem Form: INJ, PRN, PRN Blood Glucose Results, Start date: 11/29/11 1:30:00, Duration: 30 day, Stop date: 12/29/11 1:29:00 glucagon 2011- No Blake 1 mg, Memor ia 6-10 Deangelo Route: IM, l 06:30: Drug form: Her braden PDR/INJ, PRN, PRN Blood Glucose Results, Start [...] 30 day, Stop date: 12/29/11 0:00:00 Protonix 2011- No Blake 40 mg, Mendoza janice 6-10 Deangelo Route: IV, l 06:28: [facility] Drug form: Her braden 00 [...] mL, Route: l 02:31: Brown IVP, Drug [place] 00 form: INJ, ONCE, Priority: STAT, Start date: 11/28/11 21:31:00, Stop date: 11/28/11 21:31:00 NS (Bolus) 0 No Arif Domenico 1,000 [...] Hughes-Jason 8 unit, M emoria 100 3-30 [place] SUB-Q, l units/mL 17:47: Eunice Q12H, 2 He rmann injectable 42 Pu vial, solution Substituti on Allowed, SOLN Novolin N Yes Hughes-Jason 10 unit, Memoria 100 3-30 [place] SUB-Q, l units/mL 17:46: Eunice Bedtime, H ermann subcutaneou 27 Pu 10 ml, s injection Substituti on Allowed, SUSP Novolin N Yes Hughes-Jason 14 unit, Memoria 100 3-30 [place] SUB-Q, l units/mL 17:44: Eunice QAM, 1 Her braden subcutaneou 37 Pu vial, s injection Substituti on Allowed, SUSP magnesium No Hughes-Jason 400 mg, 1 Memoria oxide 3-30 [place] tab, l 14:55: Eunice Route: PO, Her braden 00 Pu Drug form: TAB, ONCE, Priority: STAT, Start date: 09/18/11 9:55:00, Stop date: 09/18/11 9:55:00 Insulin 2012-0 No Hughes-Jason 8 unit, Mem oria regular 3-30 [place] 0.08 mL, l 14:22: Dawson Route: Vin 00 Pu SUB-Q, Drug form: SOLN, ONCE, Priority: STAT, Start date: 09/18/11 9:22:00, Stop date: 09/18/11 9:22:00 Lactated 2011-0 No Hughes-Jason 1,000 mL, Memoria Ringers 3-30 [place] Rate: l (Bolus) IV 14:16: [place] 1,000 He rmann 1,000 mL 00 Pu ml/hr, Infuse over: 1 hr, Route: IV, Total Volume: 1,000, Bolus Dose, Priority: STAT, Start date: 09/18/11 9:16:00, Duration: 1 doses or times, Stop date: 09/18/11 10:15:00 Sodium 2011-0 No Hughes-Jason 1,000 mL, Me moria Chloride 3-30 [place] Rate: l 0.9% 14:06: [place] 1,000 [place] (Bolus) IV 00 Pu ml/hr, 1000 mL Infuse over: 1 hr, Route: IV, kg, Total Volume: 1,000, Bolus Dose, Priority: STAT, Start date: 09/18/11 9:06:00, Duration: 1 doses or times, Stop date: 09/18/11 10:05:00 sulfamethox 2011-0 Yes Substituti Memoria azole 3-30 on Allowed l 14:04: Vin 58 Sodium 2011-0 No Hughes-Jason 1,000 mL, Me moria Chloride 3-30 [place] Rate: l 0.9% 13:56: Dawson 1,000 [place] (Bolus) IV 00 Pu ml/hr, 1000 mL Infuse over: 1 hr, Route: IV, kg, Total Volume: 1,000, Bolus Dose, Priority: STAT, Start date: 09/18/11 8:56:00, Duration: 1 doses or times, Stop date: 09/18/11 9:55:00 clindamycin 2011-0 No Eber L 300 mg, 2 Memoria 3-21 Anabelle cap, l 21:00: Route: PO, [place] 00 Drug form: CAP, Q8H, Start date: 09/09/11 16:00:00, Duration: 30 day, Stop date: 10/09/11 8:00:00 Colace 100 2011- Yes Luna 100 mg, 1 Memoria mg oral - Amelia cap, PO, l capsule 18:47: [place] BID, 60 Her braden 19 cap, Substituti on Allowed, CAP clindamycin Yes Luna 300 mg, 2 Memoria 150 mg oral 3-21 Amelia cap, PO, l capsule 18:46: [place] Q8H, 30 Her braden 55 cap, Substituti on Allowed, CAP [place] Yes Luna 1 tab, PO, Memoria 10/325 oral - Amelia Q4H, PRN, l tablet 18:46: [place] 30 tab, Herm naeem 36 Pain, Substituti on Allowed, Maintenanc e, TAB [place] No Hollie Donavan 1 tab, Mendoza janice 10/325 oral 09-08 Mahi Route: PO, l tablet 09:00: Drug [...] 3-19 Omidvar tab, l 15:30: Route: PO, [place] 00 Drug form: TAB, Daily, Start date: 09/07/11 10:30:00, Duration: 30 day, Stop date: 10/07/11 9:00:00 flumazenil No Gayle 0.2 mg, 2 Memoria 3-19 Josefina mL, Route: l 14:19: Marion IVP, Drug Jake n 00 form: INJ, PRN, PRN Benzodiaze pine Reversal, Initial dose, Start date: 09/07/11 9:19:00, Duration: 1 day, Stop date: 09/08/11 9:18:00 naloxone No Gayle 0.04 mg, Me moria 3- Josefina 0.1 mL, l 14:19: Marion Route: Vin IVP, Drug form: INJ, Q2MIN, PRN Narcotic Reversal, Start date: 09/07/11 9:19:00, Duration: 8 doses or times, Stop date: Limited # of times ondansetron No Agyle 4 mg, 2 Memoria 3- Josefina mL, Route: l 14:19: [place] IVP, Drug Jake n 00 form: INJ, ONCE, PRN Nausea & Vomiting, Start date: 09/07/11 9:19:00 hydromorpho No Gayle 0.5 mg, Memoria ne 09-06 Josefina 0.25 mL, l 14:19: Gavin Route: Ivn 00 IVP, Drug form: INJ, Q5Min, PRN Pain Score 4-6, Start date: 09/07/11 9:19:00, Duration: 5 doses or times, Stop date: Limited # of times acetaminoph No Gayle 15 mL, M emoria en-hydrocod 09-06 Josefina Route: PO, l one 325 14:19: Marion Drug Form: He rmann mg-10 mg/15 00 [...] Memoria 3-19 Arias Route: l 13:31: IVPB, [place] 00 ONCE, Start date: 09/07/11 8:31:00, Stop [...] 3-17 Wong tab, l 04:00: Route: PO, [place] 00 Drug form: ECTAB, Daily, PRN Constipati [...] Duration: 30 day, Stop date: 10/04/11 18:10:00 [place] 2011-0 No Mahammad 1 tab, Memori a [...] 10cc/hr, l - site 1 14:50: Route: [place] 400 mL 00 NERVE BLOCK, Start date: 09/04/11 9:50:00 400 mL, Duration: 30 day, Stop date: 10/04/11 9:49:00 naloxone 2011-0 No Rosalino 0.04 mg, Me moria 3-16 Kavon 0.1 mL, l 14:50: Route: [place] IVP, Drug form: INJ, Q2MIN, PRN Narcotic Reversal, Start date: 09/04/11 9:50:00, Duration: 30 day, Stop date: 10/04/11 9:49:00 [place] 2011-0 No [place] 1 tab, Memoria 10/325 [...] mL, Route: l 13:37: [place] IVP, Drug [place] nn 00 form: INJ, ONCE, PRN Nausea & Vomiting, Start date: 09/04/11 8:37:00 naloxone 0 No Hollie 0.04 mg, Mendoza janice 3-16 Beck 0.1 mL, l 13:37: [place] Route: [place] IVP, Drug form: INJ, Q2MIN, PRN Narcotic Reversal, Start date: 09/04/11 8:37:00, Duration: 8 doses or times, Stop date: Limited # of times meperidine 0 No Hollie 12.5 mg, Me moria 3-16 Beck 0.5 mL, l 13:37: Hayden Route: [place] IVP, Drug form: INJ, Q30Min, PRN Other [...] 3-15 Omidvar tab, l 13:39: Route: PO, [place] 00 Drug form: ERTAB, ONCE, Start date: 09/03/11 8:39:00, Stop date: 09/03/11 8:39:00 [place] 5/325 2011-0 No Rosalino 1 tab, M emoria oral tablet 3-15 Kavon Route: PO, l 05:00: Drug Form: [place] 00 TAB, Q4H, Start date: 09/03/11 0:00:00, Duration: 30 day, Stop date: 10/02/11 20:00:00 Geodon 2011-0 No Eber L 120 mg, 3 Memoria 3-15 Anabelle cap, l 02:00: Route: PO, [place] 00 Drug form: CAP, Bedtime, Start date: [...] 3-14 Anabelle cap, l 17:00: Route: PO, [place] Drug form: ERCAP, Daily, Give qAM after today's dose., Start date: 09/02/11 12:00:00, Duration: 30 day, Stop date: 10/02/11 9:00:00 [place] 5/325 2011- No Rosalino 1 tab, M [...] 09/02/11 11:15:00, Stop date: 09/02/11 11:15:00 Lovenox 2011- No Missael 40 mg, 0.4 Mem oria 3-14 Movva mL, Route: l 14:00: SUB-Q, [place] 00 Drug form: INJ, Daily, Start date: 09/02/11 9:00:00, Duration: 30 day, Stop date: 10/01/11 9:00:00 vancomycin 2011-0 No Eber L 1 gm, Memoria 3-14 Anabelle Route: l 14:00: IVPB, Drug form: INJ, [id number], Start date: 09/02/11 9:00:00, Duration: 30 day, [...] or times, Stop date: 09/02/11 15:00:00 insulin 0 No [place] 15 unit, Mendoza janice 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 3-14 Omidvar 0.15 mL, l H 02:00: Route: [place] 00 SUB-Q, Drug form: INJ, Q12H, Start date: 09/01/11 21:00:00, Stop date: 10/01/11 9:00:00 labetalol No Mariaelena-Corea 5 mg, Me moria 3-14 Barbra Route: l 01:07: Feliciano IVP, [place] 00 Q5Min, PRN Elevated BP, Start date: 09/01/11 20:07:00, Duration: 5 doses or times, Stop date: Limited # of times hydrALAZINE No Mariaelena-Corea 5 mg, Memoria 3-14 Barbra Route: l 01:07: Feliciano IVP, Vin 00 Q5Min, PRN Elevated BP, Start date: 09/01/11 20:07:00, Duration: 4 doses or times, Stop date: Limited # of times hydromorpho No Mraiaelena-Corea 0.5 mg, Memoria ne 3-14 Barbra Route: [...] Route: l 01:00: IVPB, Drug form: INJ, [id number], Start date: 09/01/11 20:00:00, Duration: 30 day, [...] Route: l 00:00: IVPB, Drug form: INJ, [id number], Start date: 09/01/11 19:00:00, Duration: 30 day, Stop date: 10/01/11 7:00:00 insulin No Missael 6 unit, Memori a aspart 3-13 Movva 0.06 mL, l 23:23: Route: Vin 00 SUB-Q, Drug form: SOLN, TID-Before Meals, PRN Blood Glucose Results, Start date: 09/01/11 18:23:00, Duration: 30 day, Stop date: 10/01/11 18:22:00 glucagon 2011-0 No Missael 1 mg, Memoria 3-13 Movva Route: IM, l 23:23: Drug form: [place] 00 PDR/INJ, PRN, PRN Blood Glucose Results, [...] Stop date: 10/01/11 16:13:00 Lactated 2011-0 No Csear 1,000 mL, Me moria Ringers IV 3-13 Manuel Yznaga Rate: 100 l 1,000 mL 19:03: ml/hr, [...] L 1,000 mL, M emoria Chloride 3-13 [place] Rate: l 0.9% 10:41: 1,000 Vin (Bolus) IV 00 ml/hr, 1000 mL Infuse over: 1 hr, Route: IV, Dosing Weight 68.182 kg, Total Volume: 1,000, Bolus Dose, Priority: STAT, Start date: 09/01/11 5:41:00, Duration: 1 doses or times, Stop date: 09/01/11 6:40:00 ondansetron 2011-0 No Bee L 4 mg, Memoria 3-13 Cruzito Route: l 09:06: IVP, Drug form: INJ, [...] 08-31 Cruzito Rate: l 0.9% 08:42: 1,000 [place] (Bolus) IV 00 ml/hr, 1000 mL Infuse over: 1 hr, Route: IV, Dosing Weight 68.182 kg, Total Volume: 1,000, Bolus Dose, Priority: STAT, Start date: 09/01/11 3:42:00, Duration: 1 doses or times, Stop date: 09/01/11 4:41:00 Insulin 2011- No Bee L 8 unit, Me moria regular 08-31 Cruzito 0.08 mL, l 08:30: Route: Vin IVP, Drug form: SOLN, ONCE, Priority: STAT, Start date: 09/01/11 3:30:00, Stop date: 09/01/11 3:30:00 Sodium 2011-0 No Bee L 1,000 mL, M emoria Chloride 08-31 [place] Rate: l 0.9% 07:29: 1,000 [place] (Bolus) IV 00 ml/hr, 1,000 mL Infuse over: 1 hr, Route: IV, Dosing Weight 68.182 kg, Total Volume: 1,000, Bolus Dose, Priority: STAT, Start date: 09/01/11 2:29:00, Duration: 1 doses or times, Stop date: 09/01/11 3:28:00 potassium 2011-0 No Velásquez Noam 40 mEq, 2 Memoria chloride 3-04 Akmal tab, l 15:00: Route: PO, [place] 00 Drug form: ERTAB, BID, Start date: [...] Akmal SUB-Q, l units/mL 14:42: BID, 3 [place] subcutaneou 04 vial, 3, s injection 3, Substituti on Allowed, SUSP insulin Yes Velásquez Noam 5 Units, Memoria regular 3-04 Akmal SUB-Q, l human 14:40: TID, 30 [place] recombinant 10 vial, 3, 100 3, units/mL Substituti injectable on solution Allowed, before breakfast lunch and dinner, SOLNbefore breakfast lunch and dinner potassium No Velásquez Noam 20 mEq, Memoria chloride 3-04 Akmal 100 mL, l 14:00: Route: Vin IVPB, Drug form: INJ, Q2H, Start date: 08/23/11 8:00:00, Duration: 2 doses or times, Stop date: 08/23/11 10:00:00 calcium 2011- No Velásquez Noam 1 gm, Mem oria chloride 3-04 Akmal Route: l 13:28: IVPB, [place] 00 ONCE, Priority: STAT, Start date: 08/23/11 [...] Rodriguez 10 mL, l 16:25: Ahmed Route: [place] 00 IVPB, ONCE, Start date: 08/22/11 10:25:00, [...] l 15:00: Route: PO, Vin Drug form: TAB, Daily, Start date: 08/21/11 [...] mL, Route: l 17:15: Ahmed IVP, Drug [place] 00 form: INJ, Q8H, PRN Nausea, Start date: 08/20/11 11:15:00, Duration: 30 day, Stop date: 09/19/11 11:14:00 insulin 2011-0 No Yury 10 unit, Mem oria 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 08-19 Gato Route: l H 16:00: Rivero [...] tab, PO, l tablet 15:35: BID, 60 [place] 25 tab, Substituti on Allowed, TAB Geodon 60 2011-0 Yes 120 mg, 2 Mem oria mg oral 3-01 cap, PO, l capsule 15:35: Bedtime, Jake n 12 60 cap, Substituti on Allowed, CAP insulin 2011-0 No Yury 10 unit, Mem oria 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 08-19 Gato Route: l H 15:00: Rivero [...] 2011- No Yury 75 mg, 1 Memoria 3- Gato cap, l 15:00: Rivero Route: PO, H erm Drug form: ERCAP, Daily, Start date: 08/20/11 9:00:00, Duration: 30 day, Stop date: 09/18/11 9:00:00 potassium 2011- No Yury 15 mmol, 5 Memoria phosphate 3- Gato mL, Route: l 14:30: Rivero IV, ONCE, Start date: 08/20/11 8:30:00, Stop date: [...] Gato Route: l 12:47: Rivero IVPB, PRN, PRN Abnormal Lab Result, Start date: 08/20/11 6:47:00, Duration: 30 day, Stop date: 09/19/11 7:46:00 Insulin 2011-0 No Yury 6 unit, Mendoza janice regular 3- Gato 0.06 mL, l 09:38: Rivero Route: Nidia nn 00 SUB-Q, Drug form: SOLN, ONCE, Start date: 08/20/11 3:38:00, Stop date: 08/20/11 3:38:00 Insulin 2011-0 No Didier Noam 10 unit, Memoria regular 3-01 Akmal SUB-Q, l 09:28: BID, Vin 23 Substituti on Allowed insulin 2011- No 10 unit, Memori a 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 3- SUB-Q, l H 09:26: BID, [place] 18 Substituti on Allowed NS 1,000 mL No Didier Santacruz 1,000 mL, Memoria 3- Akmal Rate: 150 l 09:06: ml/hr, [place] 00 Infuse over: 6.7 hr, Route: IV, [...] 2011- No Yury 18 unit, Mem oria 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 3- Gato 0.18 mL, l H 08:58: [...] No Hughes-Jason 4 mg, M emoria 08-19 [place] Route: l 07:42: Dawson IVP, Drug Herm naeem 00 Pu form: INJ, ONCE, Priority: STAT, Start date: 08/20/11 1:42:00, Stop date: 08/20/11 1:42:00 GI cocktail No Hughes-Jason 30 ml, Memoria 08-19 [place] Route: PO, l 05:12: Eunice Drug Form: Her braden 00 Pu SUSP, ONCE, STAT, Start date: 08/19/11 23:12:00, Stop date: 08/19/11 23:12:00 ondansetron 2012-0 No Hughes-Jason 4 mg, M emoria 3-01 [place] Route: PO, l 05:10: Dawson Drug form: Her braden 00 Pu TABDIS, ONCE, Priority: STAT, Start date: 08/19/11 23:10:00, Stop date: 08/19/11 23:10:00 Lactated 2011-0 No Hughes-Jason 1,000 mL, Memoria Ringers 3-01 [place] Rate: l (Bolus) IV 05:10: Dawson 1,000 He rmann 1000 mL 00 Pu ml/hr, Infuse over: 1 hr, Route: IV, Total Volume: 1,000, Bolus Dose, Priority: STAT, Start date: 08/19/11 23:10:00, Duration: 1 doses or times, Stop date: 08/20/11 0:09:00 Insulin 2011- No Hughes-Jason 7 unit, Mem oria regular 08-19 [place] 0.07 mL, l 04:15: Dawson Route: Vin [...] PO, l capsule, 23:22: Rivero Daily, 30 [place] extended 24 cap, release Substituti on Allowed [...] 08/19/11 15:57:00, Stop date: 08/19/11 15:57:00 morphine 2011- No William 4 mg, Memori a Sulfate [...] 2020-02-20 Completed [facility] Vaccine 00:00:00 [facility] Influenza Virus 2020-02-20 Completed Universit y of Vaccine 00:00:00 [facility] TDAP (ADACEL) VACCINE 2019-07-25 Completed Uni versity of 00:00:00 [facility] Meningococcal B, OMV 2019-07-25 Completed Univ ersity of 00:00:00 [facility] Meningococcal 2019-07-25 Completed University of Polysaccharide 00:00:00 [facility] (groups A, C, Y and Branc h W-135) conjugate vaccine (MCV4P) TDAP (ADACEL) VACCINE 2019-07-25 Completed Uni versity of 00:00:00 [facility] Meningococcal B, OMV 2019-07-25 Completed Univ ersity of 00:00:00 [facility] Meningococcal 2019-07-25 Completed University of Polysaccharide 00:00:00 [facility] (groups A, C, Y and Branc h W-135) conjugate vaccine (MCV4P) Influenza Virus 2019-02-27 Completed Universit y of Vaccine Quad .5 mL IM 00:00:00 [facility] 6[facility] Influenza Virus 2019-02-27 Completed Universit y of Vaccine Quad .5 mL IM 00:00:00 [facility] 6[facility] hepatitis B vaccine 2018-04-07 Completed [facility] [place] 00:00:00 influenza virus 2018-03-29 Completed [facility] [place] vaccine, inactivated 00:00:00 hepatitis B vaccine 2017-11-26 Completed Memor ial [place] 00:00:00 influenza virus 2017-10-25 Completed [facility] [place] vaccine, inactivated 00:00:00 pneumococcal 2017-10-25 Completed Shahid [facility] braden 23-valent vaccine 00:00:00 Influenza Virus 2017-06-22 Completed Universit y of Vaccine Quad IM 3+ 00:00:[address] [facility] Influenza Virus 2017-06-22 Completed Universit y of Vaccine Quad IM 3+ 00:00:[address] [facility] Influenza Virus 2016-04-02 Completed Universit y of Vaccine Quad IM 3+ 00:00:[address] [facility] Influenza Virus 2016-04-02 Completed Universit y of Vaccine Quad IM 3+ 00:00:[address] [facility] Influenza Virus 2015-10-28 Completed Universit y of Vaccine Quad IM 3+ 00:00:[address] [facility] Influenza Virus 2015-10-28 Completed Universit y of Vaccine Quad IM 3+ 00:00:[address] [facility] Vital Signs Vital Name Observation Time Observation [...] 16:33:00 171 mm[Hg] Univer sity of pressure [facility] Diastolic blood 2020-06-27 16:33:00 98 mm[Hg] Unive rsity of pressure [facility] Heart rate 2020-06-27 16:33:00 71 /min [facility] Respiratory rate 2020-06-27 16:29:00 19 /min [facility] Body height 2020-06-27 16:29:00 154.9 cm [facility] Body weight 2020-06-27 16:29:00 77.293 kg Universi [facility] BMI 2020-06-27 16:29:00 32.20 kg/m2 [facility] Oxygen saturation in 2020-06-27 16:29:00 99 /min University Arterial blood by [facility] Pulse oximetry Branch Height/Length 2021-07-08 11:50:13 154.9 cm Measured Weight Dosing 2021-07-08 11:50:13 85.00 kg Height/Length 2021-07-08 11:47:31 154.9 cm Measured Weight Dosing 2021-07-08 11:47:31 85.00 kg Height/Length 2021-07-08 11:47:20 154.9 cm Measured Weight Dosing 2021-07-08 11:47:20 85.00 kg Systolic blood 2021-07-08 19:43:00 189 mm[Hg] [facility] pressure Diastolic blood 2021-07-08 19:43:00 104 mm[Hg] [facility] pressure Heart rate 2021-07-08 18:56:00 74 /min [facility] Body temperature 2021-07-08 18:56:00 36.39 Cathleen [facility] Body height 2021-07-08 18:56:00 157.5 cm [facility] Body weight 2021-07-08 18:56:00 72.938 kg [facility] BMI 2021-07-08 18:56:00 29.41 kg/m2 [facility] Oxygen saturation in 2021-07-08 18:56:00 100 /min [facility] Arterial blood by Pulse oximetry Respiratory rate 2021-06-18 16:36:00 11 /min [facility] Systolic (mm Hg) 2021-01-29 20:03:00 Mendoza ria Vin Diastolic (mm Hg) 2021-01-29 20:03:00 Mem orial Vni Systolic (mm Hg) 2021-01-29 19:40:00 Mendoza rial [place] Diastolic (mm Hg) 2021-01-29 19:40:00 Mem orial [place] Systolic (mm Hg) 2021-01-29 18:05:00 Mendoza rial [place] Diastolic (mm Hg) 2021-01-29 18:05:00 Mem orial [place] Respitory Rate 2021-01-29 16:55:00 Memori al Vin Temperature Oral (F) 2021-01-29 16:45:00 97.3 F [facility] [place] Respitory Rate 2021-01-29 16:45:00 Memori al [place] Respitory Rate 2021-01-29 16:30:00 Memori al Vin Temperature Oral (F) 2021-01-29 13:10:00 97.6 F Memorial Vin Systolic (mm Hg) 2021-01-27 05:00:00 Mendoza rial [place] Diastolic (mm Hg) 2021-01-27 05:00:00 Mem orial [place] Systolic (mm Hg) 2021-01-27 04:00:00 Mendoza rial Vin Diastolic (mm Hg) 2021-01-27 04:00:00 Mem orial [place] Systolic (mm Hg) 2021-01-27 03:00:00 Mendoza rial Vin Diastolic (mm Hg) 2021-01-27 03:00:00 Mem orial Vin Respitory Rate 2021-01-26 19:00:00 Memori al Vin Respitory Rate 2021-01-26 18:00:00 Memori al [place] Respitory Rate 2021-01-26 17:00:00 Memori al Vin Temperature Oral (F) 2021-01-22 13:00:00 97.6 F [facility] [place] Height 2021-01-21 18:25:00 149.86 cm Memorial Vin Weight 2021-01-21 18:25:00 Memorial Vin BMI Calculated 2021-01-21 18:25:00 Memori al Vin Height 2021-01-21 17:09:00 157.48 cm [facility] [place] Height 2021-01-21 13:09:00 157.48 cm [facility] Vin Weight 2021-01-21 13:09:00 [facility] [place] BMI Calculated 2021-01-21 13:09:00 Memori al [place] Heart Rate 2021-01-21 12:50:00 [facility] [place] Systolic (mm Hg) 2020-12-24 15:43:00 Mendoza rial [place] Diastolic (mm Hg) 2020-12-24 15:43:00 Mem orial [place] Heart Rate 2020-12-24 15:43:00 Memorial Vin Height 2020-12-24 15:43:00 154.94 cm [facility] Vin Weight 2020-12-24 15:43:00 [facility] [place] BMI Calculated 2020-12-24 15:43:00 Memori al [place] Systolic (mm Hg) 2016-07-30 14:00:00 Mendoza rial [place] Diastolic (mm Hg) 2016-07-30 14:00:00 Mem orial Vin Respitory Rate 2016-07-30 14:00:00 Memori al [place] Heart Rate 2016-07-30 14:00:00 [facility] [place] Temperature Oral (F) 2016-07-30 14:00:00 97.4 F [facility] Vin Systolic (mm Hg) 2016-07-30 10:45:00 Mendoza rial Vin Diastolic (mm Hg) 2016-07-30 10:45:00 Mem orial [place] Heart Rate 2016-07-30 10:45:00 [facility] [place] Temperature Oral (F) 2016-07-30 10:45:00 97.2 F [facility] Vin Respitory Rate 2016-07-30 10:45:00 Memori al Vin Heart Rate 2016-07-30 06:35:00 Memorial Vin Temperature Oral (F) 2016-07-30 06:35:00 97.0 F Memorial Vin Respitory Rate 2016-07-30 06:35:00 Memori al Vin Systolic (mm Hg) 2016-07-30 06:35:00 Mendoza rial Vin Diastolic (mm Hg) 2016-07-30 06:35:00 Mem orial [place] Weight 2016-07-24 02:13:00 [facility] [place] BMI Calculated 2016-07-24 02:13:00 Memori al Vin Height 2016-07-24 02:13:00 160.02 cm [facility] [place] Respitory Rate 2016-06-15 15:00:00 Memori al [place] Systolic (mm Hg) 2016-06-15 15:00:00 Mendoza rial Vin Diastolic (mm Hg) 2016-06-15 15:00:00 Mem orial Vin Respitory Rate 2016-06-15 14:00:00 Memori al Vin Systolic (mm Hg) 2016-06-15 14:00:00 Mendoza rial [place] Diastolic (mm Hg) 2016-06-15 14:00:00 Mem orial [place] Respitory Rate 2016-06-15 13:29:00 Memori al Vin Systolic (mm Hg) 2016-06-15 13:29:00 Mendoza rial Vin Diastolic (mm Hg) 2016-06-15 13:29:00 Mem orial [place] Temperature Oral (F) 2016-06-14 10:56:00 97.1 F [facility] [place] Temperature Oral (F) 2016-06-14 06:55:00 97.1 F [facility] [place] Temperature Oral (F) 2016-06-12 10:00:00 96.8 F [facility] [place] Weight 2016-06-11 04:25:00 Memorial Vin Height 2016-06-11 04:25:00 160.02 cm [facility] [place] BMI Calculated 2016-06-11 04:25:00 Memori al [place] Heart Rate 2016-06-11 02:04:00 [facility] [place] Heart Rate 2016-06-11 00:00:00 [facility] [place] Heart Rate 2016-06-10 20:30:00 [facility] [place] Weight 2016-06-10 16:04:00 [facility] Vin BMI Calculated 2016-06-10 16:04:00 Memori al [place] Height 2016-06-10 16:04:00 160.02 cm [facility] Vin Temperature Oral (F) 2014-06-26 15:12:00 98.0 F [facility] [place] Systolic (mm Hg) 2014-06-26 15:12:00 Mendoza rial Vin Heart Rate 2014-06-26 15:12:00 [facility] [place] Diastolic (mm Hg) 2014-06-26 15:12:00 Mem orial Vin Respitory Rate 2014-06-26 15:12:00 Memori al Vin Systolic (mm Hg) 2014-06-26 13:53:00 Mendoza rial [place] Diastolic (mm Hg) 2014-06-26 13:53:00 Mem orial Vin Respitory Rate 2014-06-26 13:53:00 Memori al [place] Temperature Oral (F) 2014-06-26 13:53:00 98.0 F Memorial Vin Temperature Oral (F) 2014-06-26 12:37:00 98.2 F [facility] [place] Respitory Rate 2014-06-26 12:37:00 Memori al Vin Systolic (mm Hg) 2014-06-26 12:37:00 Mendoza rial [place] Diastolic (mm Hg) 2014-06-26 12:37:00 Mem orial Vin Heart Rate 2014-06-26 09:21:00 [facility] [place] Heart Rate 2014-06-26 06:08:00 [facility] [place] Height 2014-06-26 05:35:00 154.94 cm [facility] [place] Weight 2014-06-26 05:35:00 [facility] Vin BMI Calculated 2014-06-26 05:35:00 Memori al [place] Respitory Rate 2013-04-15 06:10:00 Memori al [place] Diastolic (mm Hg) 2013-04-15 06:10:00 Mem orial Vin Heart Rate 2013-04-15 06:10:00 [facility] [place] Systolic (mm Hg) 2013-04-15 06:10:00 Mendoza rial [place] Temperature Oral (F) 2013-04-15 06:10:00 98.7 F Memorial Vin Respitory Rate 2013-04-15 05:37:00 Memori al [place] Diastolic (mm Hg) 2013-04-15 05:37:00 Mem orial [place] Systolic (mm Hg) 2013-04-15 05:37:00 Mendoza rial Vin Temperature Oral (F) 2013-04-15 05:37:00 98.2 F [facility] [place] Heart Rate 2013-04-15 05:37:00 [facility] [place] Height 2013-04-15 02:06:00 160.02 cm [facility] Vin Weight 2013-04-15 02:06:00 Memorial Vin Temperature Oral (F) 2013-04-15 02:06:00 98.6 F Memorial Vin Respitory Rate 2013-04-15 02:06:00 Memori al [place] Heart Rate 2013-04-15 02:06:00 [facility] [place] Diastolic (mm Hg) 2013-04-15 02:06:00 Mem orial [place] Systolic (mm Hg) 2013-04-15 02:06:00 Mendoza rial [place] Weight 2012-03-14 21:33:00 [facility] [place] Systolic (mm Hg) 2011-12-01 00:33:00 Mendoza rial Vin Respitory Rate 2011-12-01 00:33:00 Memori al [place] Heart Rate 2011-12-01 00:33:00 [facility] [place] Diastolic (mm Hg) 2011-12-01 00:33:00 Mem orial [place] Temperature Oral (F) 2011-12-01 00:33:00 99.6 F Memorial Vin Diastolic (mm Hg) 2011-11-30 21:00:00 Mem orial [place] Heart Rate 2011-11-30 21:00:00 [facility] [place] Respitory Rate 2011-11-30 21:00:00 Memori al Vin Systolic (mm Hg) 2011-11-30 21:00:00 Mendoza rial [place] Temperature Oral (F) 2011-11-30 21:00:00 99.8 F Memorial Vin Respitory Rate 2011-11-30 16:30:00 Memori al [place] Systolic (mm Hg) 2011-11-30 16:30:00 Mendoza rial Vin Diastolic (mm Hg) 2011-11-30 16:30:00 Mem orial [place] Heart Rate 2011-11-30 16:30:00 Memorial Vin Temperature Oral (F) 2011-11-30 16:30:00 99.8 F [facility] [place] Weight 2011-11-29 11:40:00 [facility] [place] Height 2011-11-29 11:40:00 157.48 cm [facility] [place] Weight 2011-11-28 17:16:00 [facility] [place] Weight 2011-09-18 13:30:00 [facility] [place] Height 2011-09-18 13:30:00 154.94 cm [facility] [place] Heart Rate 2011-09-09 13:31:00 [facility] [place] Systolic (mm Hg) 2011-09-09 13:02:00 Mendoza rial [place] Diastolic (mm Hg) 2011-09-09 13:02:00 Mem orial [place] Respitory Rate 2011-09-09 13:02:00 Memori al Vin Temperature Oral (F) 2011-09-09 13:02:00 97.5 F [facility] Vin Diastolic (mm Hg) 2011-09-09 08:00:00 Mem orial [place] Heart Rate 2011-09-09 08:00:00 [facility] Vin Temperature Oral (F) 2011-09-09 08:00:00 98.6 F [facility] Vin Respitory Rate 2011-09-09 08:00:00 Memori al [place] Systolic (mm Hg) 2011-09-09 08:00:00 Mendoza rial Vin Respitory Rate 2011-09-09 04:55:00 Memori al [place] Diastolic (mm Hg) 2011-09-09 04:55:00 Mem orial Vin Systolic (mm Hg) 2011-09-09 04:55:00 Mendoza rial [place] Heart Rate 2011-09-09 04:55:00 [facility] [place] Temperature Oral (F) 2011-09-09 00:55:00 98.7 F [facility] [place] Weight 2011-09-01 19:59:00 [facility] Vin Height 2011-09-01 19:59:00 154.94 cm [facility] [place] Height 2011-09-01 07:01:00 154.94 cm [facility] Vin Weight 2011-09-01 07:01:00 [facility] [place] Respitory Rate 2011-08-23 18:00:00 Memori al [place] Heart Rate 2011-08-23 18:00:00 [facility] [place] Systolic (mm Hg) 2011-08-23 18:00:00 Mendoza rial Vin Diastolic (mm Hg) 2011-08-23 18:00:00 Mem orial [place] Temperature Oral (F) 2011-08-23 18:00:00 97.7 F [facility] [place] Heart Rate 2011-08-23 14:24:00 [facility] [place] Temperature Oral (F) 2011-08-23 14:24:00 98.2 F [facility] Vin Diastolic (mm Hg) 2011-08-23 14:24:00 Mem orial Vin Systolic (mm Hg) 2011-08-23 14:24:00 Mendoza rial Vin Respitory Rate 2011-08-23 14:24:00 Memori al [place] Systolic (mm Hg) 2011-08-23 11:15:00 Mendoza rial [place] Diastolic (mm Hg) 2011-08-23 11:15:00 Mem orial Vin Temperature Oral (F) 2011-08-23 11:00:00 98.3 F Memorial Ivn Heart Rate 2011-08-23 11:00:00 [facility] Vin Respitory Rate 2011-08-22 22:00:00 Brandon Chase Height 2011-08-20 09:12:00 154.94 cm [facility] [place] Weight 2011-08-20 09:12:00 [facility] 2011-08-19 20:28:[address] [facility] 2011-08-19 20:28:00 [facility] Procedures Procedure Date / Time Performing Clinician Source Performed POC GLUCOSE 2021-06-18 17:00:00 Aurelio Schumacher [facility] HEPATITIS B SURFACE 2021-06-18 14:07:00 Bill Cooper [facility] ANTIGEN VANCOMYCIN LEVEL, RANDOM 2021-06-18 13:44:00 [facility] HC COMPLETE BLD COUNT 2021-06-18 13:44:00 [facility] W/AUTO DIFF BASIC METABOLIC PANEL 2021-06-18 11:27:00 [facility] ESTIMATED GFR 2021-06-18 11:27:00 [facility] POC GLUCOSE 2021-06-18 08:07:00 RenettaAurelio [facility] HEMODIALYSIS 2021-06-18 06:16:53 Bill Cooper [facility] POC GLUCOSE 2021-06-18 01:26:00 [facility] POC GLUCOSE 2021-06-17 21:58:00 RenettaAurelio [facility] HEMODIALYSIS 2021-06-17 18:25:45 [facility] Cooper [facility] POC GLUCOSE 2021-06-17 17:36:00 RenettaAurelio [facility] POC GLUCOSE 2021-06-17 13:51:00 RenettaAurelio [facility] BASIC METABOLIC PANEL 2021-06-17 11:16:00 [facility] HC COMPLETE BLD COUNT 2021-06-17 11:16:00 [facility] W/AUTO DIFF ESTIMATED GFR 2021-06-17 11:16[facility]00 [facility] POC GLUCOSE 2021-06-17 02:50:00 [facility] CONSULT TO OSTOMY CARE 2021-06-17 00:31:48 [facility] NURSE HC COMPLETE BLD COUNT 2021-06-16 23:31:00 [facility] W/AUTO DIFF BASIC METABOLIC PANEL 2021-06-16 23:31:00 [facility] ESTIMATED GFR 2021-06-16 23:31:00 [facility] POC GLUCOSE 2021-06-16 23:19:00 [facility] OR FL < 1 HOUR 2021-06-16 22:49:00 Mando Diaz [facility] ANAEROBIC CULTURE 2021-06-16 22:36:00 [facility] FUNGUS CULTURE 2021-06-16 22:36:00 [facility] 2021-06-16 22:36:00 [facility] 2021-06-16 22:36:00 [facility] AN ELECTIVE 2021-06-16 21:30:00 Jocelyne Zepeda [facility] SUPRAGLOTTIC AIRWAY AORTOGRAPHY, POSSIBLE 2021-06-16 21:17:00 [facility] , URINE 2021-06-16 20:46:00 [facility] POTASSIUM LEVEL 2021-06-16 17:28:00 Isabell Dickerson marilyn Romero POC GLUCOSE 2021-06-16 11:39:00 [facility] BASIC METABOLIC PANEL 2021-06-16 10:08:00 [facility] HC COMPLETE BLD COUNT 2021-06-16 10:08:00 [facility] W/AUTO DIFF PROTHROMBIN TIME WITH INR 2021-06-16 10:08:00 [facility] PARTIAL THROMBOPLASTIN 2021-06-16 10:08:00 Char Viramontes [facility] TIME (PTT) TYPE AND SCREEN 2021-06-16 10:08:00 [facility] ESTIMATED GFR 2021-06-16 10:08:00 [facility] POC GLUCOSE 2021-06-16 01:59:00 [facility] POC GLUCOSE 2021-06-15 22:58:00 [facility] COVID-19 QUALITATIVE 2021-06-15 19:29:00 Char Viramontes [facility] RT-PCR POC GLUCOSE 2021-06-15 17:42:00 [facility] HEMODIALYSIS 2021-06-15 16:17:54 [facility] POC GLUCOSE 2021-06-15 15:41:00 [facility] POC GLUCOSE 2021-06-15 13:44:00 [facility] POC GLUCOSE 2021-06-15 13:00:00 [facility] ECG 12-LEAD 2021-06-15 12:48:21 [facility] COMPLETE BLD COUNT 2021-06-15 11:42:[address] [facility] W/AUTO DIFF BASIC METABOLIC PANEL 2021-06-15 11:42:[address] [facility] ESTIMATED GFR 2021-06-15 11:42:00 [facility] POC GLUCOSE 2021-06-15 01:31:00 [facility] US DUPLEX ARTERIAL LOWER 2021-06-14 21:55:33 [facility] EXTREMITY RIGHT POC GLUCOSE 2021-06-14 21:51:00 [facility] POC GLUCOSE 2021-06-14 17:36:00 [facility] POC GLUCOSE 2021-06-14 13:30:00 [facility] POC GLUCOSE 2021-06-14 13:29:00 [facility] HC COMPLETE BLD COUNT 2021-06-14 10:13:[address] [facility] W/AUTO DIFF BASIC METABOLIC PANEL 2021-06-14 10:13:[address] [facility] ESTIMATED GFR 2021-06-14 10:13:00 [facility] POC GLUCOSE 2021-06-14 02:45:00 [facility] POC GLUCOSE 2021-06-13 21:47:00 [facility] POC GLUCOSE 2021-06-13 20:46:00 [facility] CBC WITH PLATELET AND 2021-06-13 16:10:00 [facility] DIFFERENTIAL COMPREHENSIVE METABOLIC 2021-06-13 16:10:00 [facility] PANEL ESTIMATED GFR 2021-06-13 16:10:00 [facility] HEMODIALYSIS 2021-06-13 15:26:35 [facility] POC GLUCOSE 2021-06-13 14:30:00 [facility] VANCOMYCIN LEVEL, RANDOM 2021-06-13 10:59:00 Juwan You [facility] POC GLUCOSE 2021-06-13 10:40:00 [facility] POC GLUCOSE 2021-06-13 02:28:00 [facility] POC GLUCOSE 2021-06-13 00:16:00 [facility] POC GLUCOSE 2021-06-12 23:31:00 [facility] POC GLUCOSE 2021-06-12 23:14:00 [facility] POC GLUCOSE 2021-06-12 18:19:00 [facility] POC GLUCOSE 2021-06-12 14:37:00 [facility] POC GLUCOSE 2021-06-12 14:01:00 Shanda Shahid [facility] POC GLUCOSE 2021-06-12 03:03:00 Holden Nagel spital [facility] CT HEAD WO CONTRAST 2021-06-12 00:53:00 Robe [facility] Ramírez POC GLUCOSE 2021-06-11 18:08:00 Nagel, Holden Whyte spital Ramírez POC GLUCOSE 2021-06-11 13:39:00 Nagel, Holden Whyte spital Ramírez HEMODIALYSIS 2021-06-11 12:38:38 Naomie [facility] POC GLUCOSE 2021-06-11 02:01:00 Robe, Holden Whyte spital Ramírez POC GLUCOSE 2021-06-10 22:15:00 Holden Nagel spital Ramírez POC GLUCOSE 2021-06-10 17:39:00 Robe Holdentrip Whyte spital Ramírez POC GLUCOSE 2021-06-10 16:05:00 Holden Nagel spital Ramírez TISSUE CULTURE 2021-06-10 15:08:00 Juwan You spital GRAM STAIN 2021-06-10 15:08:00 Juwan You spital ANAEROBIC CULTURE 2021-06-10 15:04:00 Kenyatta [facility] FUNGUS CULTURE 2021-06-10 15:04:00 Juwan You spital AEROBIC CULTURE 2021-06-10 15:04:00 Juwan You spital AFB CULTURE 2021-06-10 15:04:00 Juwan You spital GRAM STAIN 2021-06-10 15:04:00 Juwan You spital AFB STAIN 2021-06-10 15:04:00 Juwan You spital SD AN ELECTIVE 2021-06-10 14:26:00 Sofi Roach spital SUPRAGLOTTIC AIRWAY Marquita INCISION AND DRAINAGE, 2021-06-10 14:26:00 [facility] HC COMPLETE BLD COUNT 2021-06-10 10:20:00 [facility] W/AUTO DIFF BASIC METABOLIC PANEL 2021-06-10 10:20:00 [facility] PROTHROMBIN TIME WITH INR 2021-06-10 10:20:00 [facility] PARTIAL THROMBOPLASTIN 2021-06-10 10:20:00 [facility] TIME (PTT) TYPE AND SCREEN 2021-06-10 10:20:00 Holden Nagel spital Ramírez ESTIMATED GFR 2021-06-10 10:20:00 Kenyatta [facility] Isabell Ferrara spital POC GLUCOSE 2021-06-10 03:11:00 Nagel, Holden Ferrara spital Ramírez POC GLUCOSE 2021-06-10 01:30:00 Holden Nagel spital Ramírez POC GLUCOSE 2021-06-09 22:22:00 Holden Nagel spital Ramírez POC GLUCOSE 2021-06-09 13:55:00 Holden Nagel spital Ramírez HEMODIALYSIS 2021-06-09 13:20:01 [facility] VANCOMYCIN LEVEL, RANDOM 2021-06-09 11:46:00 [facility] POC GLUCOSE 2021-06-09 02:06:00 Holden Nagel spital Ramírez POC GLUCOSE 2021-06-08 22:23:00 Robe Holdentrip Whyte spital Ramírez POC GLUCOSE 2021-06-08 17:53:00 Holden Nagel spital Ramírez HC COMPLETE BLD COUNT 2021-06-08 16:06:00 [facility] W/AUTO DIFF POC GLUCOSE 2021-06-08 13:56:00 Holden Nagel spital Ramírez URINE CULTURE 2021-06-08 03:56:00 Holden Nagel spital Ramírez URINALYSIS SCREEN AND 2021-06-08 03:32:00 [facility] MICROSCOPY, WITH REFLEX TO CULTURE POC GLUCOSE 2021-06-08 01:15:00 Nagel, Holden [facility] Ramírez POC GLUCOSE 2021-06-07 22:07:00 Holden Nagel [facility] Ram[facility]rez POC GLUCOSE 2021-06-07 18:01:00 Holden Nagelist Ho spital Ramírez BASIC METABOLIC PANEL 2021-06-07 14:15:00 [facility] ESTIMATED GFR 2021-06-07 14:15:00 Holden Nagel [facility] Ram[facility]rez POC GLUCOSE 2021-06-07 13:56:00 NagelHolden rodriguez [facility] Ramírez POC GLUCOSE 2021-06-07 02:54:00 Holden Nagel Ho spital [place] CT LOWER EXTREMITY W 2021-06-07 01:22:59 [facility] CONTRAST RIGHT POC GLUCOSE 2021-06-06 23:50:00 Holden Nagel Ho spital Ramírez POC GLUCOSE 2021-06-06 17:31:00 Holden Nagel Ho spital Ramírez HEMODIALYSIS 2021-06-06 [facility]:05[facility] 2021-06-06 14:03:00 Holden Nagel Ho spital Ramírez HC COMPLETE BLD COUNT 2021-06-06 10:31:00 [facility] W/AUTO DIFF BASIC METABOLIC PANEL 2021-06-06 10:31:00 [facility] ESTIMATED GFR 2021-06-06 10:31:00 Holden Nagel Ho spital Ramírez POC GLUCOSE 2021-06-06 10:14:00 Holden Nagel Ho spital Ramírez POC GLUCOSE 2021-06-06 06:26:00 Holden Nagel Ho spital Ramírez POC GLUCOSE 2021-06-06 02:41:00 Holden Nagel Ho spital Ramírez POC GLUCOSE 2021-06-05 19:51:00 Holden Nagel Ho spital Ramírez BASIC METABOLIC PANEL 2021-06-05 18:06:00 [facility] HC COMPLETE BLD COUNT 2021-06-05 18:06:00 [facility] W/AUTO DIFF ESTIMATED GFR 2021-06-05 18:06:00 Holden Nagel spital Ramírez POC GLUCOSE 2021-06-05 17:48:00 Jin Nagelash [facility] Ram[facility]rez ANAEROBIC CULTURE 2021-06-05 17:10:00 Kenyatta, [facility] ANAEROBIC CULTURE 2021-06-05 16:59:00 Kenyatta, [facility] FUNGUS CULTURE 2021-06-05 16:59:00 Kenyatta, [facility] spital AEROBIC CULTURE 2021-06-05 16:59:00 Kenyatta, [facility] spital AFB CULTURE 2021-06-05 16:59:00 Kenyatta, [facility]ital FUNGUS SMEAR 2021-06-05 16:59:00 Kenyatta, Juwan [facility] spital AF[employer] STAIN 2021-06-05 16:59:00 Kenyatta, [facility] spital SD AN ELECTIVE 2021-06-05 16:52:08 Chandler Silverman [facility] SUPRAGLOTTIC AIRWAY TISSUE CULTURE 2021-06-05 16:50:00 Kenyatta, [facility] spital GRAM STAIN 2021-06-05 16:50:00 Kenyatta, Juwan [facility] spital DEBRIDEMENT, LOWER 2021-06-05 16:16:00 Kenyatta, [facility] EXTREMITY POC GLUCOSE 2021-06-05 13:32:00 [facility] TROPONIN T 2021-06-05 10:58:00 [facility] ospital ABO AND RH CONFIRMATION BY 2021-06-05 10:54:00 Rachel Brasher [facility] PROTOCOL Vipin BASIC METABOLIC PANEL 2021-06-05 10:53:00 [facility] HC COMPLETE BLD COUNT 2021-06-05 10:53:00 [facility] W/AUTO DIFF ESTIMATED GFR 2021-06-05 10:53:00 [facility]OT[facility] TIME WITH INR 2021-06-05 10:52:00 [facility] PARTIAL THROMBOPLASTIN 2021-06-05 10:52:00 Wander [facility] TIME (PTT) HCG QUALITATIVE, SERUM 2021-06-05 10:52:00 Myron Fernandes [facility] SCREEN POC GLUCOSE 2021-06-05 09:40:00 Rachel Brasher Ho spital Vipin BLOOD CULTURE, AEROBIC & 2021-06-05 08:27:00 Rachel Brasher [facility] ANAEROBIC Vipin POC GLUCOSE 2021-06-05 07:42:00 Rachel Brasher Ho spital [place]ip[place] POC GLUCOSE 2021-06-05 06:57:00 Rachel Brasher Ho spital [place]ip[place] POC GLUCOSE 2021-06-05 06:10:00 Holden Nagel Ho spital Ramírez BLOOD CULTURE, AEROBIC & 2021-06-05 04:31:00 Rachel Brasher [facility] ANAEROBIC Vipin POC GLUCOSE 2021-06-05 04:04:00 Rachel Brasher Ho spital [place] POC GLUCOSE 2021-06-05 03:51:00 Rachel Brasher Ho spital [place] TYPE AND SCREEN 2021-06-05 03:40:00 Rachel Brasher Ho spital [place] POC GLUCOSE 2021-06-05 03:05:00 Rachel Brasher Ho spital [place] POC GLUCOSE 2021-06-05 02:23:00 Rachel Brasher Ho spital Vipin COVID-19 QUALITATIVE 2021-06-05 02:08:00 Sivan Stewart [facility] RT-PCR HC COMPLETE BLD COUNT 2021-06-05 01:24:00 Sivan Stewart [facility] W/AUTO DIFF PROTHROMBIN TIME WITH INR 2021-06-05 01:24:00 SamantaSivan [facility] PARTIAL THROMBOPLASTIN 2021-06-05 01:24:00 Sivan Stewart [facility] TIME (PTT) COMPREHENSIVE METABOLIC 2021-06-05 01:24[facility]00 [facility] PANEL CREATINE KINASE, TOTAL 2021-06-05 01:24:00 hollySivan [facility] (CPK) B NATRIURETIC PEPTIDE 2021-06-05 01:24:00 Sivan Stewart [facility] TROPONIN T 2021-06-05 01:24:00 Char Viramontes ospigabe ESTIMATED GFR 2021-06-05 01:24:00 [facility] ECG ED PRELIMINARY 2021-06-05 00:31:28 [facility] INTERPRETATION ECG 12-LEAD 2021-06-05 00:19:17 Rachel Brasher Ho spital [facility] POC GLUCOSE 2021-05-25 18:04:00 A[facility], [facility]OC [facility] 2021-05-25 14:00:00 [facility] 2021-05-25 10:12:00 [facility] BASIC METABOLIC PANEL 2021-05-25 10:12:00 Awe, [facility] ESTIMATED GFR 2021-05-25 10:12:00 [facility] P[facility]SE 2021-05-25 02:49:00 [facility] P[facility]SE 2021-05-24 23:33:00 Awe, Marilu Arvin [facility] POC GLUCOSE 2021-05-24 17:56:00 Awe, Marilu Arvin [facility] POC GLUCOSE 2021-05-24 13:59:00 [facility] 2021-05-24 10:12:00 [facility] BASIC METABOLIC PANEL 2021-05-24 10:12:00 Awe, [facility] ESTIMATED GFR 2021-05-24 10:12:00 [facility] POC [facility]SE 2021-05-24 09:59:00 Awe, [facility] POC GLUCOSE 2021-05-24 02:26:00 Awe, [facility] POC GLUCOSE 2021-05-24 00:03:00 Awe, [facility] TRANSFUSE RED BLOOD CELLS 2021-05-23 22:30:00 [facility] TRANSFUSE RED BLOOD CELLS 2021-05-23 21:30:00 [facility] POC GLUCOSE 2021-05-23 19:03:00 Awe, [facility] TYPE AND SCREEN 2021-05-23 14:38:00 [facility] HC COMPLETE BLD COUNT 2021-05-23 14:38:00 [facility] W/AUTO DIFF PREPARE RBC 2021-05-23 14:38:00 [facility] ospital PREPARE PLATELET PHERESIS 2021-05-23 14:38:00 [facility] POC GLUCOSE 2021-05-23 14:35:00 Awe, [facility] HEMODIALYSIS 2021-05-23 13:42:30 [facility] CBC HEMOGRAM 2021-05-23 12:31:00 Awe, [facility] BASIC METABOLIC PANEL 2021-05-23 12:31:00 [facility] 2021-05-23 12:31:00 Awe, [facility] POC GLUCOSE 2021-05-23 11:22:00 Awe, [facility] POC GLUCOSE 2021-05-23 03:30:00 Awe, [facility] POC GLUCOSE 2021-05-22 23:20:00 Awe, [facility] POC GLUCOSE 2021-05-22 17:20:00 Awe, [facility] POC GLUCOSE 2021-05-22 13:27:00 Awe, [facility] BASIC METABOLIC PANEL 2021-05-22 12:31:00 [facility] MAGNESI[facility] LEV[facility] 2021-05-22 12:31:00 [facility] ospigabe Mcginnis CBC HEMOGRAM 2021-05-22 12:31:00 Nikki Haynes [facility] ospital Rahel ESTIMATED GFR 2021-05-22 12:31:00 Nikki Haynes [facility] ospital Rahel POC GLUCOSE 2021-05-22 10:54:00 Awe, [facility] POC GLUCOSE 2021-05-22 07:28:00 Awe, [facility] POC GLUCOSE 2021-05-22 01:11:00 Awe, [facility] HEPATITIS B SURFACE 2021-05-21 21:08:00 [facility] ANTIBODY HEMODIALYSIS 2021-05-21 20:57:40 [facility] POC GLUCOSE 2021-05-21 17:57:00 Awe, [facility] POC GLUCOSE 2021-05-21 13:55:00 Awe, [facility] POC GLUCOSE 2021-05-21 10:41:00 Kye Barber [facility] spital COVID-19 ANTI-SPIKE IGG 2021-05-21 07:43:00 Clyde Olmstead [facility] ANTIBODY TITER Esa BASIC METABOLIC PANEL 2021-05-21 07:43:00 [facility] MAGNESIUM LEVEL 2021-05-21 07:43:00 Nikki Haynes ospital [place] CBC HEMOGRAM 2021-05-21 07:43:00 [facility] Ra[facility] COVID-19 SEROLOGY PATIENT 2021-05-21 07:43:00 Clyde Olmstead [facility] SURVEILLANCE Esa ESTIMATED GFR 2021-05-21 07:43:00 Andre Sofia spital [place] LACTIC ACID LEVEL 2021-05-21 07:43:00 Leodan Stevenson [facility] POC GLUCOSE 2021-05-21 06:35:00 Kye Barber spital HC COMPLETE BLD COUNT 2021-05-21 02:49:00 [facility] W/AUTO DIFF BASIC METABOLIC PANEL 2021-05-21 02:49:00 [facility] LACTIC ACID LEVEL 2021-05-21 02:49:00 [facility] OSMOLALITY, SERUM 2021-05-21 02:49:00 [facility] BETA HYDROXYBUTYRATE 2021-05-21 02:49:00 [facility] PROCALCITONIN 2021-05-21 02:49:00 [facility] ESTIMATED GFR 2021-05-21 02:49:00 [facility] POC GLUCOSE 2021-05-21 02:34:00 Kye Barber spital HC COMPLETE BLD COUNT 2021-05-21 00:28:00 Char Viramontes [facility] W/AUTO DIFF POC GLUCOSE 2021-05-20 23:57:00 Kye Barber spital BASIC METABOLIC PANEL 2021-05-20 23:20:00 Andre Sofia [facility] [place] LACTIC ACID LEVEL 2021-05-20 23:20:00 Andre Sofia [facility] [place] ESTIMATED GFR 2021-05-20 23:20:00 Andre Sofia rajeshtal [place] VENOUS BLOOD GAS 2021-05-20 23:19:00 Andre [...] TRANSFUSE RED BLOOD CELLS 2021-05-20 17:21:00 [facility] [place] TRANSFUSE PLATELET 2021-05-20 15:52:00 [facility] PHERESIS BASIC METABOLIC PANEL 2021-05-20 15:25:00 Andre Sofia [facility] [place] ESTIMATED GFR 2021-05-20 15:25:00 Andre Sofia spital [place] POC GLUCOSE 2021-05-20 14:48:00 Kye Barber Ho spital HEMODIALYSIS 2021-05-20 11:31:20 [facility] POC GLUCOSE 2021-05-20 10:44:00 Kye Barber spital HEPATITIS B SURFACE 2021-05-20 08:49:00 [facility] ANTIGEN HEPATITIS B SURFACE AB, 2021-05-20 08:49:00 [facility] QUANTITATIVE HC COMPLETE BLD COUNT 2021-05-20 08:25:00 [facility] W/AUTO DIFF BASIC METABOLIC PANEL 2021-05-20 08:25:00 [facility] MAGNESIUM LEVEL 2021-05-20 08:25:00 [facility] ospital PHOSPHORUS LEVEL 2021-05-20 08:25:00 [facility] PROTHROMBIN TIME WITH INR 2021-05-20 08:25:00 Stevenson, Alcocer [facility] ESTIMATED GFR 2021-05-20 08:25:00 Juwan You spital HEMOGLOBIN A1C 2021-05-20 08:25:00 Nikki Haynes ospital [place] POC GLUCOSE 2021-05-20 06:34:00 Kye Barber spital ARTERIAL BLOOD GAS 2021-05-20 04:36:00 [facility] 12-LEAD 2021-05-20 03:42:28 [facility] spital PROTHROMBIN TIME WITH INR 2021-05-20 02:54:00 [facility] HC COMPLETE BLD COUNT 2021-05-20 02:54:00 [facility] W/[facility]O DIFF BASIC METABOLIC PANEL 2021-05-20 02:54:00 Graham [facility] LACTIC ACID LEVEL 2021-05-20 02:54:00 Graham [facility] VENOUS BLOOD GAS 2021-05-20 02:54:00 Graham [facility] ospital ESTIMATED GFR 2021-05-20 02:54:00 Graham [facility] spital POC GLUCOSE 2021-05-20 02:54:00 Kye Barber spital XR CHEST 1 VW PORTABLE 2021-05-20 02:51:13 Graham [facility] [place] < 1 HOUR 2021-05-20 01:30:15 Juwan You spital TRANSFUSE RED BLOOD CELLS 2021-05-20 00:59:00 Juwan You [facility] SD AN ELECTIVE 2021-05-20 00:53:01 Sukhjinder Medina spital SUPRAGLOTTIC AIRWAY Kendall INCISION AND DRAINAGE, 2021-05-20 00:45:00 Juwan You [facility] HEMATOMA HC COMPLETE BLD COUNT 2021-05-19 22:13:00 [facility] W/AUTO DIFF BASIC METABOLIC PANEL 2021-05-19 22:13:00 [facility] PROTHROMBIN TIME WITH INR 2021-05-19 22:13:00 [facility] PARTIAL THROMBOPLASTIN 2021-05-19 22:13:00 Char Viramontes [facility] TIME (PTT) MAGNESIUM LEVEL 2021-05-19 22:13:00 Char Viramontes H ospital ESTIMATED GFR 2021-05-19 22:13:00 Juwan You spital POC GLUCOSE 2021-05-19 22:00:00 Errol [facility] SURGICAL PATHOLOGY REQUEST 2021-05-19 21:47:00 Errol Luther [facility] POC GLUCOSE 2021-05-19 21:17:00 Juwan You spital ACTIVATED CLOTTING TIME 2021-05-19 19:12:00 Kye Barber [facility] SD AN ELECTIVE 2021-05-19 18:11:04 Sukhjinder Medina spital SUPRAGLOTTIC AIRWAY [place] LOWER EXTREMITY 2021-05-19 17:59:00 Juwan You spital ANGIOGRAM,POSSIBLE ANGIOPLASTY,POSSIBLE STENT XR CHEST 1 VW PORTABLE 2021-05-19 15:47:37 Juwan You [facility] ESTIMATED GFR 2021-05-19 14:34:00 Juwan You spital POC PANEL 2021-05-19 14:34:00 Juwan You spital TYPE AND SCREEN 2021-05-19 14:05:00 Isabell Dickerson spital Larry Romero PREPARE RBC 2021-05-19 14:05:00 Char Viramontes ospital PREPARE FRESH FROZEN 2021-05-19 14:05:00 Char Viramontes [facility] PLASMA PREPARE PLATELET PHERESIS 2021-05-19 14:05:00 Char Viramontes [facility] BASIC METABOLIC PANEL 2021-05-19 14:00:00 Jayla [facility] Larry Romero PROTHROMBIN TIME WITH INR 2021-05-19 14:00:00 Jayla [facility] Larry Romero HC COMPLETE BLD COUNT 2021-05-19 14:00:00 Jayla [facility] W/AUTO DIFF Larry Romero ABO AND RH CONFIRMATION BY 2021-05-19 14:00:00 Juwan You [facility] PROTOCOL ESTIMATED GFR 2021-05-19 14:00:00 Isabell Dickerson COVID-19 QUALITATIVE 2021-05-19 12:40:[address] [facility] RT-PCR MEDICAL RELEASE/CLEARANCE 2021-05-13 06:01:00 Doctor Unassigned, [facility] FORMS [facility] US DUPLEX ARTERIAL LOWER 2021-05-12 15:21:31 Juwan You [facility] EXTREMITY BILATERAL Emergency department visit 2013-04-15 05:00:00 [facility] for the evaluation and management of a patient, which requires these 3 kamara components within the constraints imposed by the urgency of the patient's clinical condition and/or mental status: A comprehensive history; A comprehensi Injection or Infusion of 2013-04-15 05:00:00 Mem orikatya Banueols Other Therapeutic or Prophylactic Substance Intravenous infusion, 2013-04-15 05:00:00 Memori al Vin hydration; each additional hour (List separately in addition to code for primary procedure) Therapeutic, prophylactic, 2013-04-15 05:00:00 [facility] or diagnostic injection (specify substance or drug); each additional sequential intravenous push of a new substance/drug (List separately in addition to code for primary procedure) Therapeutic, prophylactic, 2013-04-15 05:00:00 [facility] or diagnostic injection (specify substance or drug); intravenous push, single or initial substance/drug Eye procedure [facility] Colonoscopy 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 Plan of Care Planned Activity Planned Date Details Comments Source Future Scheduled 2022-02-27 HEPATITIS B VACCINES [facility] Test 05:24:42 (1 of 3 - 3-dose series) [code = HEPATITIS B VACCINES (1 of 3 - 3-dose series)] Future Scheduled 2022-02-27 COVID-19 VACCINE (#1) [facility] Test 05:24:42 [code = COVID-19 VACCINE (#1)] Future Scheduled 2022-02-27 Pneumococcal Vaccine: [facility] Test 05:24:42 Pediatrics (0 to 5 Years) and At-Risk Patients (6 to 64 Years) (1 - PCV) [code = Pneumococcal Vaccine: Pediatrics (0 to 5 Years) and At-Risk Patients (6 to 64 Years) (1 - PCV)] Future Scheduled 2022-02-27 Hepatitis C screening [facility] Test 05:24:42 (procedure) [code = 854969678] Future Scheduled 2022-02-27 [facility] Test 05:24:42 malignant neoplasm of cervix (procedure) [code = 529556153] Future Scheduled 2022-02-27 INFLUENZA VACCINE Method [facility] Test 05:24:42 [code = INFLUENZA VACCINE] Future Scheduled 2022-02-27 HEPATITIS B VACCINES Met [facility] Test 05:24:42 (1 of 3 - 3-dose series) [code = HEPATITIS B VACCINES (1 of 3 - 3-dose series)] Future Scheduled 2022-02-27 COVID-19 VACCINE (#1) [facility] Test 05:24:42 [code = COVID-19 VACCINE (#1)] Future Scheduled 2022-02-27 Pneumococcal Vaccine: [facility] Test 05:24:42 Pediatrics (0 to 5 Years) and At-Risk Patients (6 to 64 Years) (1 - PCV) [code = Pneumococcal Vaccine: Pediatrics (0 to 5 Years) and At-Risk Patients (6 to 64 Years) (1 - PCV)] Future Scheduled 2022-02-27 Hepatitis C screening [facility] Test 05:24:42 (procedure) [code = [id number]] Future Scheduled 2022-02-27 [facility] Test 05:24:42 malignant neoplasm of cervix (procedure) [code = [id number]] Future Scheduled 2022-02-27 INFLUENZA VACCINE [facility] Test 05:24:42 [code = INFLUENZA VACCINE] Future Scheduled 2022-02-27 HEPATITIS B VACCINES Met [facility] Test 05:24:42 (1 of 3 - 3-dose series) [code = HEPATITIS B VACCINES (1 of 3 - 3-dose series)] Future Scheduled 2022-02-27 COVID-19 [facility] (#[facility] Test 05:24:42 [code = COVID-19 VACCINE (#1)] Future Scheduled 2022-02-27 Pneumococcal Vaccine: [facility] Test 05:24:42 Pediatrics (0 to 5 Years) and At-Risk Patients (6 to 64 Years) (1 - PCV) [code = Pneumococcal Vaccine: Pediatrics (0 to 5 Years) and At-Risk Patients (6 to 64 Years) (1 - PCV)] Future Scheduled 2022-02-27 Hepatitis C screening [facility] Test 05:24:42 (procedure) [code = [id number]] Future Scheduled 2022-02-27 Screening for [facility] Test 05:24:42 malignant neoplasm of cervix (procedure) [code = [id number]] Future Scheduled 2022-02-27 INFLUENZA VACCINE [facility] Test 05:24:42 [code = INFLUENZA VACCINE] Future Scheduled 2022-02-27 HEPATITIS B VACCINES Met [facility] Test 05:24:42 (1 of 3 - 3-dose series) [code = HEPATITIS B VACCINES (1 of 3 - 3-dose series)] Future Scheduled 2022-02-27 COVID-19 VACCINE (#1) [facility] Test 05:24:42 [code = COVID-19 VACCINE (#1)] Future Scheduled 2022-02-27 Pneumococcal Vaccine: [facility] Test 05:24:42 Pediatrics (0 to 5 Years) and At-Risk Patients (6 to 64 Years) (1 - PCV) [code = Pneumococcal Vaccine: Pediatrics (0 to 5 Years) and At-Risk Patients (6 to 64 Years) (1 - PCV)] Future Scheduled 2022-02-27 Hepatitis C screening [facility] Test 05:24:42 (procedure) [code = 941672758] Future Scheduled 2022-02-27 Screening for [facility] Test 05:24:42 malignant neoplasm of cervix (procedure) [code = 297752310] Future Scheduled 2022-02-27 INFLUENZA VACCINE Method [facility] Test 05:24:42 [code = INFLUENZA VACCINE] Future Scheduled 2022-02-27 HEPATITIS B VACCINES Met [facility] Test 05:24:42 (1 of 3 - 3-dose series) [code = HEPATITIS B VACCINES (1 of 3 - 3-dose series)] Future Scheduled 2022-02-27 COVID-19 VACCINE (#1) [facility] Test 05:24:42 [code = COVID-19 VACCINE (#1)] Future Scheduled 2022-02-27 Pneumococcal Vaccine: [facility] Test 05:24:42 Pediatrics (0 to 5 Years) and At-Risk Patients (6 to 64 Years) (1 - PCV) [code = Pneumococcal Vaccine: Pediatrics (0 to 5 Years) and At-Risk Patients (6 to 64 Years) (1 - PCV)] Future Scheduled 2022-02-27 Hepatitis C screening [facility] Test 05:24:42 (procedure) [code = 213968906] Future Scheduled 2022-02-27 Screening for [facility] Test 05:24:42 malignant neoplasm of cervix (procedure) [code = 431627309] Future Scheduled 2022-02-27 INFLUENZA VACCINE Method [facility] Test 05:24:42 [code = INFLUENZA VACCINE] Future Scheduled 2022-02-27 HEPATITIS B VACCINES Met [facility] Test 05:24:42 (1 of 3 - 3-dose series) [code = HEPATITIS B VACCINES (1 of 3 - 3-dose series)] Future Scheduled 2022-02-27 COVID-19 VACCINE (#1) [facility] Test 05:24:42 [code = COVID-19 VACCINE (#1)] Future Scheduled 2022-02-27 Pneumococcal Vaccine: [facility] Test 05:24:42 Pediatrics (0 to 5 Years) and At-Risk Patients (6 to 64 Years) (1 - PCV) [code = Pneumococcal Vaccine: Pediatrics (0 to 5 Years) and At-Risk Patients (6 to 64 Years) (1 - PCV)] Future Scheduled 2022-02-27 Hepatitis C screening [facility] Test 05:24:42 (procedure) [code = 833494250] Future Scheduled 2022-02-27 Screening for [facility] Test 05:24:42 malignant neoplasm of cervix (procedure) [code = 201707270] Future Scheduled 2022-02-27 INFLUENZA VACCINE Method [facility] Test 05:24:42 [code = INFLUENZA VACCINE] Future Scheduled 2022-02-27 HEPATITIS B VACCINES Met [facility] Test 05:24:42 (1 of 3 - 3-dose series) [code = HEPATITIS B VACCINES (1 of 3 - 3-dose series)] Future Scheduled 2022-02-27 COVID-19 VACCINE (#1) [facility] Test 05:24:42 [code = COVID-19 VACCINE (#1)] Future Scheduled 2022-02-27 Pneumococcal Vaccine: [facility] Test 05:24:42 Pediatrics (0 to 5 Years) and At-Risk Patients (6 to 64 Years) (1 - PCV) [code = Pneumococcal Vaccine: Pediatrics (0 to 5 Years) and At-Risk Patients (6 to 64 Years) (1 - PCV)] Future Scheduled 2022-02-27 Hepatitis C screening [facility] Test 05:24:42 (procedure) [code = 359654940] Future Scheduled 2022-02-27 Screening for [facility] Test 05:24:42 malignant neoplasm of cervix (procedure) [code = 263632925] Future Scheduled 2022-02-27 [facility]UENZA VACCINE [facility] Test 05:24:42 [code = INFLUENZA VACCINE] Future Scheduled 2021-07-22 COVID-19 VACCINE (1) [facility] Test 13:11:04 [code = COVID-19 VACCINE (1)] Future Scheduled 2021-07-22 Hepatitis C screening [facility] Test 13:11:04 (procedure) [code = 898587550] Future Scheduled 2021-07-22 Screening for [facility] Test 13:11:04 malignant neoplasm of cervix (procedure) [code = 891679480] Future Scheduled 2021-07-22 INFLUENZA VACCINE [facility] Test 13:11:04 [code = INFLUENZA VACCINE] Encounters Start End Encounter Admission Attending Care Care Encounter Source Date/Time Date/Time Type Type Clinicians Facility Department ID 2021-12-29 Outpatient [facility] [id number] [place] 11:56:[id number] [facility] 2021-12-19 Outpatient [facility] [id number] [place] 14:05:12 [id number] Health 2021-12-12 Outpatient [facility] [id number] [place] 12:11:[id number] [facility] 2021-12-05 Outpatient [facility] [id number] [place] 20:09:[id number] [facility] 2021-10-28 Outpatient [facility] [id number] [place] 17:04:[id number] [facility] 2021-07-22 Outpatient nullFlavo [facility] [id number] Memoria 00:10:30 r Medical 05 l [facility] 2021-07-22 Preadmit nullFlavo [id number] Memoria 00:10:[address] [facility] 68 l [place] 2021-07-22 Outpatient nullFlavo [facility] [id number] Memoria 00:10:30 r Medical 06 l [facility] 2022-01-02 2022-01-02 Outpatient Deshazo_T [facility] [id number] [facility] 03:37:00 03:37:00 0715 [facility] l Group 2021-12-15 2021-12-15 Outpatient [facility] [id number] [place] 08:00:00 08:00:00 [facility] 2021-12-02 2021-12-02 Travel 1.2.840.1 1.2.092.050 2021 [id number] Methodi 00:00:00 00:00:[address] 3.430.2.7 0.2.7.3.698 Ho spita .3.654146 084.8 l .8 2021-12-02 2021-12-02 Travel 1.2.840.1 1.2.159.056 4241 [id number] Methodi 00:00:00 00:00:[address] 3.430.2.7 0.2.7.3.698 Ho spita .3.056217 084.8 l .8 2021-11-13 2021-11-13 Transcribe [place], 1.2.840.1 [id number] 21 [id number] Methodi 00:00:00 00:00:00 Orders Jose Miguel G. 02135.1.[address] 3.430.2.7 Hospit a .3.549283 l .8 2021-11-13 2021-11-13 Transcribe [place], 1.2.840.1 [id number] 21 [id number] Methodi 00:00:00 00:00:00 Orders Jose Miguel G. 41430.1.[address] 3.430.2.7 Hospit a .3.749239 l .8 2021-11-05 2021-11-05 Outpatient Deshazo_T [facility] 00102 -2021 [facility] 12:00:00 12:00:00 0518 Medica l Group 2021-10-29 2021-10-29 Telephone Rosy, 1.2.840.1 [id number] 258 [id number] Methodi 00:00:00 00:00:[address] Mohamed 3.430.2.7 Hospit a .3.394379 l .8 2021-10-29 2021-10-29 Telephone Rosy, 1.2.840.1 [id number] 226 [id number] Methodi 00:00:00 00:00:[address] Mohamed 3.430.2.7 Hospit a .3.670206 l .8 2021-08-20 2021-08-20 Outpatient Deshazo_T [facility] [id number] -2021 Devoted 12:30:00 12:30:00 0302 Medica l Group 2021-07-08 2021-07-08 Office Ann, 1.2.840.1 [id number] 9344 Methodi 13:00:00 14:25:36 Visit Bessie 84279.1.[address] [place] 3.430.2.7 Hosp jo-ann .3.404591 l .8 2021-07-08 2021-07-08 Office Ann, 1.2.840.1 [id number] 0254 Methodi 13:00:00 14:25:36 Visit Bessie 95448.1.[address] [place] 3.430.2.7 Hosp jo-ann .3.414097 l .8 2021-07-08 2021-07-08 Telephone Anthony, 1.2.840.1 [id number] 2100 [id number] Methodi 00:00:00 00:00:[address] 3.430.2.7 Hospit a .3.407704 l .8 2021-07-08 2021-07-08 Travel 1.2.840.1 1.2.960.601 9661 776040 Methodi 00:00:00 00:00:[address] 3.430.2.7 0.2.7.3.698 Ho spita .3.369963 084.8 l .8 2021-07-08 2021-07-08 Telephone Anthony, 1.2.840.1 [id number] 2099 [id number] Methodi 00:00:00 00:00:[address] 3.430.2.7 Hospit a .3.544037 l .8 2021-07-08 2021-07-08 Travel 1.2.840.1 1.2.153.472 6535 192263 Methodi 00:00:00 00:00:[address] 3.430.2.7 0.2.7.3.698 Ho spita .3.420278 084.8 l .8 2021-07-03 2021-07-03 CAV Melany 2.16.840. 2.16.840.1. CLAC [id number] Devoted 19:00:00 20:00:00 Vladimir 1.328072. 373614.4.6. 467 [facility] 4.6.06490 [id number] 2021-07-03 2021-07-03 Telephone Seth, 1.2.840.1 [id number] 2099 [id number] Methodi 00:00:00 00:00:[address] [place] 3.430.2.7 Hosp jo-ann .3.735092 l .8 2021-07-03 2021-07-03 Telephone Seth, 1.2.840.1 [id number] 2099 [id number] Methodi 00:00:00 00:00:[address] [place] 3.430.2.7 Hosp jo-ann .3.603686 l .8 2021-06-24 2021-06-24 Outpatient Deshazo_T [facility] 95[address] Devoted 05:31:00 05:31:00 0104 Medica l Group 2021-06-23 2021-06-23 Telephone Anthony, 1.2.840.1 [id number] 2099 [id number] Methodi 00:00:00 00:00:[address] 3.430.2.7 Hospit a .3.856217 l .8 2021-06-23 2021-06-23 Telephone Anthony, 1.2.840.1 [id number] 2099 [id number] Methodi 00:00:00 00:00:[address] 3.430.2.7 Hospit a .3.373619 l .8 2021-06-04 2021-06-18 [facility]. 1.2.840.1 1041 04642 [id number] Methodi 18:20:00 18:13:00 Encounter Rachel Brasher 36405.1.[address] [facility] 3.430.2.7 [facility] .3.125582 l [facility] .8 2021-06-04 2021-06-18 [facility] [place]. 1.2.840.1 1041 31256 [id number] Methodi 18:20:00 18:13:00 Encounter Rachel Brasher 26389.1.[address] [facility] 3.430.2.7 [facility] .3.683248 l [facility] .8 2021-06-16 2021-06-16 Anesthesia Yousif, 1.2.840.1 [id number] Methodi 23:59:59 23:59:59 Event Alesia Coelho 87759.1.[address] 3.430.2.7 Hospit a .3.641715 l .8 2021-06-16 2021-06-16 Surgery Joe, 1.2.840.1 [id number] 9582 Methodi 13:30:00 17:45:[address] [facility] 3.430.2.7 Hosp jo-ann .3.825587 l .8 2021-06-16 2021-06-16 Surgery Diaz, 1.2.840.1 [id number] 474913 5693 Methodi 13:30:00 17:45:[address] [facility] 3.430.2.7 Hosp jo-ann .3.469939 l .8 2021-06-16 2021-06-16 Anesthesia Jose Carlos, 1.2.840.1 [id number] 914 5618912 Methodi 15:19:00 17:19:00 Event Veto 14242.1.1 309 s t V. 3.430.2.7 Hospit a .3.172520 l .8 2021-06-16 2021-06-16 Anesthesia Jose Carlos, 1.2.840.1 [id number] 962 [id number] Methodi 15:19:00 17:19:00 Event Veto 99241.1.1 309 s t V. 3.430.2.7 Hospit a .3.822101 l .8 2021-06-10 2021-06-10 Surgery Juwan You 1.2.840.1 [id number] 21001 12992 Methodi 08:00:00 10:30:[address] 3.430.2.7 Hospit a .3.089684 l .8 2021-06-10 2021-06-10 Surgery Juwan You 1.2.840.1 [id number] 21001 63535 Methodi 08:00:00 10:30:[address] 3.430.2.7 Hospit a .3.514926 l .8 2021-06-10 2021-06-10 Anesthesia Doc, 1.2.840.1 [id number] 852 [id number] Methodi 08:26:00 09:40:00 Event Sofi 39507.1.[address] Marquita 3.430.2.7 Hosp jo-ann .3.101727 l .8 2021-06-10 2021-06-10 Anesthesia Doc, 1.2.840.1 [id number] 533 [id number] Methodi 08:26:00 09:40:00 Event Sofi 01045.1.[address] Marquita 3.430.2.7 Hosp jo-ann .3.814399 l .8 2021-06-09 2021-06-09 Prep for Robert, 1.2.840.1 [id number] 463 [id number] Methodi 00:00:00 00:00:00 Surgery Gayle 64000.1.[address] 3.430.2.7 Hospit a .3.543530 l .8 2021-06-09 2021-06-09 Prep for Robert, 1.2.840.1 [id number] 033 [id number] Methodi 00:00:00 00:00:00 Surgery Gayle 00248.1.[address] 3.430.2.7 Hospit a .3.452656 l .8 2021-06-09 2021-06-09 Prep for Robert, 1.2.840.1 [id number] 165 8783319 Methodi 00:00:00 00:00:00 Surgery Gayle 02785.1.[address] 3.430.2.7 Hospit a .3.364328 l .8 2021-06-09 2021-06-09 Prep for Robert, 1.2.840.1 [id number] 764 [id number] Methodi 00:00:00 00:00:00 Surgery Gayle 71619.1.[address] 3.430.2.7 Hospit a .3.917390 l .8 2021-06-05 2021-06-05 Anesthesia Frankie Chowdhury 1.2.840.1 [id number] Methodi 10:16:00 11:41:00 Event Chandler Silverman 45986.1.[address] 3.430.2.7 Hospit a .3.459762 l .8 2021-06-05 2021-06-05 Anesthesia Frankie Chowdhury 1.2.840.1 [id number] Methodi 10:16:00 11:41:00 Event Chandler Silverman 31561.1.[address] 3.430.2.7 Hospit a .3.235956 l .8 2021-06-05 2021-06-05 Surgery Juwan You 1.2.840.1 [id number] 15132 Methodi 09:30:00 11:05:[address] 3.430.2.7 Hospit a .3.397807 l .8 2021-06-05 2021-06-05 Surgery Juwan You 1.2.840.1 [id number] 45332 Methodi 09:30:00 11:05:[address] 3.430.2.7 Hospit a .3.910645 l .8 2021-06-03 2021-06-03 Prep for Anthony, 1.2.840.1 [id number] 55883 Methodi 00:00:00 00:00:00 Surgery Forrest 84011.1.[address] 3.430.2.7 Hospit a .3.180461 l .8 2021-06-03 2021-06-03 Telephone Adelita, 1.2.840.1 [id number] 041 [id number] Methodi 00:00:00 00:00:00 Crysandria 72288.1.1 218 s t 3.430.2.7 Hospit a .3.979950 l .8 2021-06-03 2021-06-03 Prep for Anthony, 1.2.840.1 [id number] 41221 Methodi 00:00:00 00:00:00 Surgery Forrest 63078.1.[address] 3.430.2.7 Hospit a .3.172748 l .8 2021-06-03 2021-06-03 Telephone Adelita, 1.2.840.1 [id number] 821 [id number] Methodi 00:00:00 00:00:00 Crysandria 58089.1.1 218 s t 3.430.2.7 Hospit a .3.099483 l .8 2021-05-28 2021-05-28 Outpatient Adams_R [facility] 46305-5 021 [facility] 05:00:00 05:00:00 1208 Medica l Group 2021-05-27 2021-05-27 Patient Tam, 1.2.840.1 [id number] 607 [id number] Methodi 00:00:00 00:00:00 Outreach Maria M 32330.1.[address] 3.430.2.7 Hospit a .3.443707 l .8 2021-05-27 2021-05-27 Travel 1.2.840.1 1.2.236.421 9848 876977 Methodi 00:00:00 00:00:[address] 3.430.2.7 0.2.7.3.698 Ho spita .3.382544 084.8 l .8 2021-05-27 2021-05-27 Orders Ramana, 1.2.840.1 [id number] 2099 [id number] Methodi 00:00:00 00:00:00 Only Anila 89444.1.[address] 3.430.2.7 Hospit a .3.756184 l .8 2021-05-27 2021-05-27 Patient Tam, 1.2.840.1 [id number] 103 [id number] Methodi 00:00:00 00:00:00 Outreach Maria M 04583.1.[address] 3.430.2.7 Hospit a .3.873848 l .8 2021-05-27 2021-05-27 Travel 1.2.840.1 1.2.315.163 4483 329668 Methodi 00:00:00 00:00:[address] 3.430.2.7 0.2.7.3.698 Ho spita .3.674592 084.8 l .8 2021-05-27 2021-05-27 Orders Boles, 1.2.840.1 [id number] 2099 112396 Methodi 00:00:00 00:00:00 Only Anila 98415.1.[address] 3.430.2.7 Hospit a .3.941006 l .8 2021-05-26 2021-05-26 Outpatient Adams_R [facility] 72806-8 021 [facility] 03:30:00 03:30:00 1206 Medica l Group 2021-05-26 2021-05-26 Telephone Anthony, 1.2.840.1 [id number] 2099 229822 Methodi 00:00:00 00:00:[address] 3.430.2.7 Hospit a .3.797059 l .8 2021-05-26 2021-05-26 Telephone Anthony, 1.2.840.1 [id number] 2099 574221 Methodi 00:00:00 00:00:[address] 3.430.2.7 Hospit a .3.589750 l .8 2021-05-19 2021-05-25 [facility] Juwan You 1.2.840.1 [id number] 2099 343314 Methodi 06:00:00 15:59:00 Encounter Kye Barber 47846.1.[address] [facility], Marilu Arvin 3.430.2.7 Hospita .3.536356 l .8 2021-05-19 [facility] [id number] 2099 169352 Methodi 06:00:00 15:59:00 Encounter Kye Barber 12543.1.[address] [place], Marilu Arvin 3.430.2.7 Hospita .3.837020 l .8 2021-05-21 2021-05-21 Outpatient DMG DMG 92037-6 021 [facility] 03:30:00 03:30:00 1201 Medica l Group 2021-05-19 2021-05-19 Anesthesia Adam, 1.2.840.1 [id number] 21 [id number] Methodi 18:45:00 20:31:00 Event Sukhjinder 76030.1.[address] [place]all 3.430.2.7 Hospit a .3.154438 l .8 2021-05-19 2021-05-19 Anesthesia Adam 1.2.840.1 [id number] 21 [id number] Methodi 18:45:00 20:31:00 Event Sukhjinder 94801.1.[address] [place]all 3.430.2.7 Hospit a .3.091250 l .8 2021-05-19 2021-05-19 Surgery Juwan You 1.2.840.1 [id number] Methodi 18:50:00 19:55:[address] 3.430.2.7 Hospit a .3.637920 l .8 2021-05-19 2021-05-19 Surgery Juwan You 1.2.840.1 [id number] Methodi 18:50:00 19:55:[address] 3.430.2.7 Hospit a .3.625659 l .8 2021-05-19 2021-05-19 Anesthesia Sukhjinder Medina 1.2.840.1 [id number] Methodi 12:00:00 15:14:00 Event Brisa, Hanane 30515.1.[address] 3.430.2.7 Hospit a .3.925410 l .8 2021-05-19 2021-05-19 Anesthesia Sukhjinder Medina 1.2.840.1 [id number] Methodi 12:00:00 15:14:00 Event Brisa, Hanane 30380.1.[address] 3.430.2.7 Hospit a .3.852648 l .8 2021-05-19 2021-05-19 Surgery Juwan You 1.2.840.1 [id number] Methodi 12:05:00 14:45:[address] 3.430.2.7 Hospit a .3.133682 l .8 2021-05-19 2021-05-19 Surgery Juwan You 1.2.840.1 [id number] Methodi 12:05:00 14:45:[address] 3.430.2.7 Hospit a .3.204334 l .8 2021-05-19 2021-05-19 Travel 1.2.840.1 1.2.051.427 0440 353908 Methodi 00:00:00 00:00:[address] 3.430.2.7 0.2.7.3.698 Ho spita .3.761919 084.8 l .8 2021-05-19 2021-05-19 Travel 1.2.840.1 1.2.827.421 2884 058912 Methodi 00:00:00 00:00:[address] 3.430.2.7 0.2.7.3.698 Ho spita .3.553651 084.8 l .8 2021-05-14 2021-05-14 [facility].2.840[facility]1 [id number] Methodi 00:00:00 00:00:[address] 3.430.2.7 Hospit a .3.522250 l .8 2021-05-14 2021-05-14 Prep for Anthony, 1.2.840.1 [id number] 76588 Methodi 00:00:00 00:00:00 Surgery Forrest 50534.1.[address] 3.430.2.7 Hospit a .3.210141 l .8 2021-05-14 2021-05-14 Telephone andlaa, 1.2.840.1 [id number] Methodi 00:00:00 00:00:[address] 3.430.2.7 Hospit a .3.896190 l .8 2021-05-14 2021-05-14 Prep for Anthony, 1.2.840.1 [id number] 55186 Methodi 00:00:00 00:00:00 Surgery Forrest 25193.1.[address] 3.430.2.7 Hospit a .3.940663 l .8 2021-05-13 2021-05-13 Orders Doctor JOANNA 1.2.840.114 068506 92 [facility] 00:00:00 00:00:00 Only Unassigned, MAGDALENO 350.1.13.10 [facility] of [place] [facility] 4.2.7.2.686 Baljinder as 216.2948502 [address] 2021-05-12 2021-05-12 Office KenyattaJuwan 1.2.840.1 [id number] 84 Methodi 09:00:00 09:32:[address] 3.430.2.7 Hospit a .3.125236 l .8 2021-05-12 2021-05-12 Office KenyattaJuwan 1.2.840.1 [id number] Methodi 09:00:00 09:32:[address] 3.430.2.7 Hospit a .3.443015 l .8 2021-05-12 2021-05-12 Outpatient KENYATTAJUWAN [facility] [id number] 4162 [place] 00:00:00 00:00:[address] 2021-05-12 2021-05-12 Telephone Anthony, 1.2.840.1 [id number] Methodi 00:00:00 00:00:[address] 3.430.2.7 Hospit a .3.618949 l .8 2021-05-12 2021-05-12 Travel 1.2.840.1 1.2.385.784 9780 086863 Methodi 00:00:00 00:00:[address] 3.430.2.7 0.2.7.3.698 Ho spita .3.814503 084.8 l .8 2021-05-12 2021-05-12 Telephone Anthony, 1.2.840.1 [id number] 2099 616757 Methodi 00:00:00 00:00:[address] 3.430.2.7 Hospit a .3.595538 l .8 2021-05-12 2021-05-12 Travel 1.2.840.1 1.2.547.662 7435 288670 Methodi 00:00:00 00:00:[address] 3.430.2.7 0.2.7.3.698 Ho spita .3.675471 084.8 l .8 2021-05-08 2021-05-08 Orders Anthony, 1.2.840.1 [id number] 805903 2154 Methodi 00:00:00 00:00:00 Only Forrest 07298.1.[address] 3.430.2.7 Hospit a .3.048545 l .8 2021-05-08 2021-05-08 Telephone Boles, 1.2.840.1 [id number] Methodi 00:00:00 00:00:[address] 3.430.2.7 Hospit a .3.167930 l .8 2021-05-08 2021-05-08 Orders Anthony, 1.2.840.1 [id number] 848984 7342 Methodi 00:00:00 00:00:00 Only Forrest 49601.1.[address] 3.430.2.7 Hospit a .3.287195 l .8 2021-05-08 2021-05-08 Telephone Boles, 1.2.840.1 [id number] Methodi 00:00:00 00:00:[address] 3.430.2.7 Hospit a .3.571987 l .8 2021-05-05 2021-05-05 Office Juwan You 1.2.840.1 [id number] 16328 Methodi 14:00:00 15:41:[address] 3.430.2.7 Hospit a .3.028331 l .8 2021-05-05 2021-05-05 Office Juwan You 1.2.840.1 [id number] 91671 Methodi 14:00:00 15:41:[address] 3.430.2.7 Hospit a .3.347494 l .8 2021-05-05 2021-05-05 Travel 1.2.840.1 1.2.076.209 1190 589777 Methodi 00:00:00 00:00:[address] 3.430.2.7 0.2.7.3.698 Ho spita .3.560145 084.8 l .8 2021-05-05 2021-05-05 Travel 1.2.840.1 1.2.424.614 0008 588960 Methodi 00:00:00 00:00:[address] 3.430.2.7 0.2.7.3.698 Ho spita .3.645240 084.8 l .8 2021-05-01 2021-05-01 Telephone Diaz, 1.2.840.1 [id number] 2099 015789 Methodi 00:00:00 00:00:[address] [facility] 3.430.2.7 Hosp jo-ann .3.573566 l .8 2021-05-01 2021-05-01 Telephone Diaz, 1.2.840.1 [id number] 2099 [id number] Methodi 00:00:00 00:00:[address] [facility] 3.430.2.7 Hosp jo-ann .3.100797 l .8 2021-03-21 2021-03-21 Outpatient DMG DMG 46849-8 021 [facility] 08:01:00 08:01:00 1001 Medica iván Dillard 2021-01-21 2021-01-29 Inpatient [facility] [id number] [facility] 15:50:00 20:14:[address] 2021-01-21 2021-01-29 Inpatient U AYDEE, [facility] CAR 7512 [facility] 10:50:00 15:14:00 MONISHA 2021-01-21 2021-01-29 Outpatient Aydee [facility] [id number] 10:50:00 15:14:00 Monisha 12 2021-01-24 2021-01-24 Outpatient DMG DMG [id number] [facility] 08:00:00 08:00:00 0806 [facility] 2021-01-21 2021-01-21 Outpatient Aydee [facility] [id number] 10:50:00 10:50:00 Monisha 12 2021-01-03 2021-01-03 Office DOMINIQUE Diane 1.2.840.114 [id number] 07:44:43 09:30:54 Visit Alexandr ALTMAN 350.1.13.58 MEDICAL 9.2.7.2.686 [facility] [id number] 1 2021-01-03 2021-01-03 Office DOMINIQUE Diane 1.2.840.114 [id number] [place] 07:44:43 09:30:54 Visit Alexandr ALTMAN [facility].1.13.[address] [facility] 9.2.7.2.686 [facility] [id number] 1 2020-12-24 2020-12-25 Outpatient nullFlavo [facility] 249 [id number] [facility] 15:32:00 04:59:00 r Disease 11 l [facility] 2020-12-24 2020-12-24 Outpatient WRIGHT, [facility] [id number] [facility] 10:32:00 23:59:00 HUGUENOT 2020-12-24 2020-12-24 Outpatient Wright, [facility] [id number] 10:32:00 23:59:00 Marvin Madden 2020-10-27 2020-10-27 Keyona Kimble [facility] 1.2.840.114 [id number] 00:00:00 00:00:00 (Out) Oz Lehman 350.1.13.10 Sesser 4.2.7.2.686 Professio [id number] [address] 2020-10-24 2020-10-24 Orders Doctor JOANNA 1.2.840.114 [id number] 00:00:00 00:00:00 Only Unassigned, MAGDALENO 350.1.13.10 [facility] 4.2.7.2.686 [id number] [id number] 2020-09-24 2020-09-24 [facility] 1.2.840.114 [id number] 00:00:00 00:00:00 Jose Luis Lehman 350.1.13.10 Sesser 4.2.7.2.686 Professio [id number] community health 220 [facility] 2020-09-09 2020-09-09 Patient [facility] 1.2.840.114 [id number] 00:00:00 00:00:00 Outreach Earl PRIMARY 350.1.13.10 Manuel CARE 4.2.7.2.686 [facility] [id number] 2020-07-23 2020-07-23 Office [facility]NEW [facility] 1.2.520.594 [id number] 13:31:20 14:37:36 Visit Deja PRIMARY 350.1.13.10 A CARE 4.2.7.2.686 PAVILLION [id number] 198 2020-06-27 2020-06-27 Office Lamin [facility] 1.2.840.114 [id number] Univers 10:05:43 11:00:00 Visit Oz LEHMAN 350.1.13.10 itRigoberto 4.2.7.2.686 Amisha lombardo PROFESSIO [id number] [facility] 059 [facility] 2020-06-27 2020-06-27 Outpatient R LAMIN [facility] [id number] Univers 09:30:00 11:00:00 OZ low [facility] 2020-01-25 2020-01-31 Inpatient 1 Rei Waldron [facility] [id number] 21:31:00 18:15:00 Rei Waldron [facility] 2018-05-24 2018-05-24 Outpatient [facility] [id number] [facility] 00:00:00 00:00:00 BHAMIDIPASUSAN 2016-07-24 2016-07-30 Inpatient nullFlavo [facility] [id number] Memoria 02:04:00 16:20:00 r [place] 10 [facility] 2016-07-23 2016-07-30 Outpatient Yaquelin [facility] [id number] 20:04:00 10:20:00 Luna 10 2016-06-10 2016-06-15 Inpatient nullFlavo [facility] [id number] Memoria 16:02:00 18:23:[address] 2016-06-10 2016-06-15 Outpatient Franck, [facility] [id number] 10:02:00 12:23:00 Joe Yan 09 2014-06-26 2014-06-26 EC nullFlavo [facility] [id number] Memoria 05:25:00 15:14:00 Emergency r [place] 08 [facility] 2014-06-25 2014-06-26 Outpatient Ostermayer, 2.16.840. 2.16.840. 1. [id number] 23:25:00 09:14:00 Atul [id number]. 580312.3.61 08 Cem 3.615.0.1 5.0.411 94 2275-10-25 2013-04-15 [id number] 21:04:00 01:45:[address] 2013-04-14 2013-04-15 Outpatient 2.16.840. 2.16.840.1. 4 [id number] [facility] 21:04:00 01:45:00 [id number]. [id number] 07 l 3.615.0.1 5.0.101 Jake n [facility] 2013-04-14 2013-04-15 Outpatient 2.16.840. 2.16.840.1. 4 [id number] [facility] 21:04:00 01:45:00 1.588554. 248982.3.61 07 l 3.615.0.1 5.0.101 Jake n [facility] 2013-04-14 2013-04-15 Outpatient 2.16.840. 2.16.840.1. 4 [id number] [facility] 21:04:00 01:45:00 [id number] 07 l 3.615.0.1 5.0.101 Jake n 01 [facility] 2013-04-14 2013-04-15 Outpatient [id number]. [id number] Memoria 21:04:00 01:45:00 [id number] 07 l 3.615.0.1 5.0.101 Jake n 01 [facility] 2013-04-14 2013-04-15 Outpatient 2.16.840. [id number]. 4 [id number] [facility] 21:04:00 01:45:00 [id number] 07 l 3.615.0.1 5.0.101 Jake n [facility] 2012-03-14 2012-03-14 Emergency nullFlavo [id number] Memoria 16:32:00 22:39:[address] [facility] 04 [facility] 2011-11-28 2011-11-30 OU nullFlavo [facility] [id number] Memoria 12:16:00 20:40:00 [facility] 03 [facility] 2011-09-18 2011-09-18 Emergency nullFlavo [facility] [id number] Memoria 08:23:00 13:34:00 [facility] 02 [facility] 2011-09-01 2011-09-09 Inpatient nullFlavo [facility] [id number] Memoria 01:40:00 15:00:00 [facility] 01 [facility] 2011-08-19 2011-08-23 Inpatient nullFlavo [facility] [id number] Memoria 14:25:00 15:28:00 [facility] 00 [facility] Results Test Description Test Time Test Comments Results Result Comments Source AFB culture 2021-07-22 18:13:19 Test Item Value Reference Range Interpretation Comme nts AFB culture isolate No growth after 6 weeks of Specimen InformationSpecimen (test code = 543-9) incubation. Source: DrainageSpecimen Site: Thigh: [facility] [id number] 18:13:19 Test Item Value Reference Range Interpretation Comments AFB culture No growth Specimen isolate (test after 6 weeks InformationSp ecimen code = 543-9) of Source: [place] geSpecimen incubation. Site: Thigh: in fected wound right [facility]2022-02-01 18:13:19 Test Item Value Reference Range Interpretation Comments AFB culture No growth Specimen isolate (test after 6 weeks InformationSp ecimen code = 543-9) of Source: [place] geSpecimen incubation. Site: Thigh: in fected wound right [facility] [id number] 18:13:19 Test Item Value Reference Range Interpretation Comments AFB culture No growth Specimen isolate (test after 6 weeks InformationSp ecimen code = 543-9) of Source: [place] geSpecimen incubation. Site: Thigh: in fected wound right [facility] [id number] 18:13:19 Test Item Value Reference Range Interpretation Comments AFB culture No growth Specimen isolate (test after 6 weeks InformationSp ecimen code = 543-9) of Source: [place] geSpecimen incubation. Site: Thigh: in fected wound right [facility] [id number] 18:13:19 Test Item Value Reference Range Interpretation Comments AFB culture No growth Specimen isolate (test after 6 weeks InformationSp ecimen code = 543-9) of Source: [place] geSpecimen incubation. Site: Thigh: in fected wound right [facility]2022-02-01 18:13:19 Test Item Value Reference Range Interpretation Comments AFB culture No growth Specimen isolate (test after 6 weeks InformationSp ecimen code = 543-9) of Source: [place] geSpecimen incubation. Site: Thigh: in fected wound right [facility]2022-02-01 18:13:19 Test Item Value Reference Range Interpretation Comments AFB culture No growth Specimen isolate (test after 6 weeks InformationSp ecimen code = 543-9) of Source: [place] geSpecimen incubation. Site: Thigh: in fected wound right [facility] [id number] 18:15:13 Test Item Value Reference Range Interpretation Comments Fungus culture No growth Specimen isolate (test after 4 weeks InformationSp ecimen code = 1441) of Source: TissueS pecimen incubation. Site: [facility]2022-01-25 18:15:13 Test Item Value Reference Range Interpretation Comments Fungus culture No growth Specimen isolate (test after 4 weeks InformationSp ecimen code = 1441) of Source: TissueS pecimen incubation. Site: [facility]2022-01-25 18:15:13 Test Item Value Reference Range Interpretation Comments Fungus culture No growth Specimen isolate (test after 4 weeks InformationSp ecimen code = 1441) of Source: TissueS pecimen incubation. Site: [facility]2022-01-25 18:15:13 Test Item Value Reference Range Interpretation Comments Fungus culture No growth Specimen isolate (test after 4 weeks InformationSp ecimen code = 1441) of Source: TissueS pecimen incubation. Site: [facility]2022-01-25 18:15:13 Test Item Value Reference Range Interpretation Comments Fungus culture No growth Specimen isolate (test after 4 weeks InformationSp ecimen code = 1441) of Source: TissueS pecimen incubation. Site: [facility]2022-01-25 18:15:13 Test Item Value Reference Range Interpretation Comments Fungus culture No growth Specimen isolate (test after 4 weeks InformationSp ecimen code = 1441) of Source: TissueS pecimen incubation. Site: [facility]2022-01-25 18:15:13 Test Item Value Reference Range Interpretation Comments Fungus culture No growth Specimen isolate (test after 4 weeks InformationSp ecimen code = 1441) of Source: TissueS pecimen incubation. Site: [facility]2022-01-25 18:15:13 Test Item Value Reference Range Interpretation Comments Fungus culture No growth Specimen isolate (test after 4 weeks InformationSp ecimen code = 1441) of Source: TissueS pecimen incubation. Site: [facility]2022-01-01 14:31:13 Test Item Value Reference Range Interpretation Comments Anaerobic No anaerobic Specimen culture isolate organisms InformationS pecimen (test code = isolated. Source: TissueS pecimen 552) Site: [place] 399982-01-01 14:31:13 Test Item Value Reference Range Interpretation Comments Anaerobic No anaerobic Specimen culture isolate organisms InformationS pecimen (test code = isolated. Source: TissueS pecimen 552) Site: [place] 399982-01-01 14:31:13 Test Item Value Reference Range Interpretation Comments Anaerobic No anaerobic Specimen culture isolate organisms InformationS pecimen (test code = isolated. Source: TissueS pecimen 552) Site: [place] [id number] 14:31:13 Test Item Value Reference Range Interpretation Comments Anaerobic No anaerobic Specimen culture isolate organisms InformationS pecimen (test code = isolated. Source: TissueS pecimen 552) Site: [place] 399982-01-01 14:31:13 Test Item Value Reference Range Interpretation Comments Anaerobic No anaerobic Specimen culture isolate organisms InformationS pecimen (test code = isolated. Source: TissueS pecimen 552) Site: [place] 399982-01-01 14:31:13 Test Item Value Reference Range Interpretation Comments Anaerobic No anaerobic Specimen culture isolate organisms InformationS pecimen (test code = isolated. Source: TissueS pecimen 552) Site: [facility]2022-01-01 14:31:13 Test Item Value Reference Range Interpretation Comments Anaerobic No anaerobic Specimen culture isolate organisms InformationS pecimen (test code = isolated. Source: TissueS pecimen 552) Site: [facility]2022-01-01 14:31:13 Test Item Value Reference Range Interpretation Comments Anaerobic No anaerobic Specimen culture isolate organisms InformationS pecimen (test code = isolated. Source: TissueS pecimen 552) [facility] [id number] 16:51:58 Test Item Value Reference Range Interpretation Comments Gram stain No WBC's or Specimen isolate (test organisms seen. Information Specimen code = 1469) Source: TissueS pecimen [facility] [id number] 16:51:58 Test Item Value Reference Range Interpretation Comments Aerobic culture No growth Specimen isolate (test after 3 days. InformationSp ecimen code = 498) Source: TissueS pecimen [facility] [id number] 16:51:58 Test Item Value Reference Range Interpretation Comments Fungus smear No fungi Specimen (test code = observed. InformationSpec imen Source: 1443) [facility] Site: [facility]2021-12-31 16:51:58 Test Item Value Reference Range Interpretation Comments Gram stain No WBC's or Specimen isolate (test organisms seen. Information Specimen code = 1469) Source: [facility] Site: [facility]2021-12-31 16:51:58 Test Item Value Reference Range Interpretation Comments Aerobic culture No growth Specimen isolate (test after 3 days. InformationSp ecimen code = 498) Source: [facility] Site: [facility]2021-12-31 16:51:58 Test Item Value Reference Range Interpretation Comments Fungus smear No fungi Specimen (test code = observed. InformationSpec imen Source: 1443) [facility] Site: [facility]2021-12-31 16:51:58 Test Item Value Reference Range Interpretation Comments Gram stain No WBC's or Specimen isolate (test organisms seen. Information Specimen code = 1469) Source: [facility] Site: [facility]2021-12-31 16:51:58 Test Item Value Reference Range Interpretation Comments Aerobic culture No growth Specimen isolate (test after 3 days. InformationSp ecimen code = 498) Source: [facility] Site: [facility]2021-12-31 16:51:58 Test Item Value Reference Range Interpretation Comments Fungus smear No fungi Specimen (test code = observed. InformationSpec imen Source: 1443) [facility] Site: [facility]2021-12-31 16:51:58 Test Item Value Reference Range Interpretation Comments Gram stain No WBC's or Specimen isolate (test organisms seen. Information Specimen code = 1469) Source: [facility] Site: [facility] [id number] 16:51:58 Test Item Value Reference Range Interpretation Comments Aerobic culture No growth Specimen isolate (test after 3 days. InformationSp ecimen code = 498) Source: [facility] Site: [facility] [id number] 16:51:58 Test Item Value Reference Range Interpretation Comments Fungus smear No fungi Specimen (test code = observed. InformationSpec imen Source: 1443) TissueSpecimen Site: [facility] [id number] 16:51:58 Test Item Value Reference Range Interpretation Comments Gram stain No WBC's or Specimen isolate (test organisms seen. Information Specimen code = 1469) Source: [facility] [id number] 16:51:58 Test Item Value Reference Range Interpretation Comments Aerobic culture No growth Specimen isolate (test after 3 days. InformationSp ecimen code = 498) Source: [facility] Site: [facility] [id number] 16:51:58 Test Item Value Reference Range Interpretation Comments Fungus smear No fungi Specimen (test code = observed. InformationSpec imen [facility]: 1443[facility]2021-12-31 16:51:58 Test Item Value Reference Range Interpretation Comments Gram stain No WBC's or Specimen isolate (test organisms seen. Information Specimen code = 1469) Source: [facility] Site: [facility] [id number] 16:51:58 Test Item Value Reference Range Interpretation Comments Aerobic culture No growth Specimen isolate (test after 3 days. InformationSp ecimen code = 498) Source: [facility] Site: [facility]2021-12-31 16:51:58 Test Item Value Reference Range Interpretation Comments Fungus smear No fungi Specimen (test code = observed. InformationSpec imen Source: 1443) TissueSpecime Site: [facility] [id number] 16:51:58 Test Item Value Reference Range Interpretation Comments Gram stain No WBC's or Specimen isolate (test organisms seen. Information Specimen code = 1469) Source: [facility] Site: [facility] [id number] 16:51:58 Test Item Value Reference Range Interpretation Comments Aerobic culture No growth Specimen isolate (test after 3 days. InformationSp ecimen code = 498) Source: [facility] Site: [facility] [id number] 16:51:58 Test Item Value Reference Range Interpretation Comments Fungus smear No fungi Specimen (test code = observed. InformationSpec imen Source: 1443) TissueSlegacy healthimen [facility] [id number] 16:51:58 Test Item Value Reference Range Interpretation Comments Gram stain No WBC's or Specimen isolate (test organisms seen. Information Specimen code = 1469) Source: TissueS pecimen [facility] [id number] 16:51:58 Test Item Value Reference Range Interpretation Comments Aerobic culture No growth Specimen isolate (test after 3 days. InformationSp ecimen code = 498) Source: TissueS pecimen [facility] [id number] 16:51:58 Test Item Value Reference Range Interpretation Comments Fungus smear No fungi Specimen (test code = observed. InformationSpec imen Source: 1443) TissueSpecimen Site: Thigh [facility] [id number] 17:00:57 Test Item Value Reference Range Interpretation Comments POC glucose (test code 79 mg/dL 65-99 Opera tor Name: Eboni = 51341-4) AmiDevice ID: [id number] [facility] [id number] 17:00:57 Test Item Value Reference Range Interpretation Comments POC glucose (test code 79 mg/dL 65-99 Opera tor Name: Eboni = 85295-2) AmiDevice ID: [id number] [facility] [id number] 17:00:57 Test Item Value Reference Range Interpretation Comments POC glucose (test code 79 mg/dL 65-99 Opera tor Name: Eboni = 26319-6) AmiDevice ID: [id number] [facility] [id number] 17:00:57 Test Item Value Reference Range Interpretation Comments POC glucose (test code 79 mg/dL 65-99 Opera tor Name: Eboni = 27456-1) AmiDevice ID: [id number] [facility] [id number] 17:00:57 Test Item Value Reference Range Interpretation Comments POC glucose (test code 79 mg/dL 65-99 Opera tor Name: Eboni = 11793-4) AmiDevice ID: [id number] [facility] [id number] 17:00:57 Test Item Value Reference Range Interpretation Comments POC glucose (test code 79 mg/dL 65-99 Opera tor Name: Eboni = 92577-1) AmiDevice ID: [id number] [facility] [id number] 17:00:57 Test Item Value Reference Range Interpretation Comments POC glucose (test code 79 mg/dL 65-99 Opera tor Name: Eboni = 58031-9) AmiDevice ID: [id number] [facility] [id number] 17:00:57 Test Item Value Reference Range Interpretation Comments POC glucose (test code 79 mg/dL 65-99 Opera tor Name: Eboni = 34613-2) AmiDevice ID: [id number] [facility] , [id number] 20:46:00 Test Item Value Reference Range Interpretation Comments test urine, POC (test Negative code = 7688411) Internal QC (test code = 257) QC acceptable [facility] , [id number] 20:46:00 Test Item Value Reference Range Interpretation Comments test urine, POC (test Negative code = 3524419) Internal QC (test code = 257) QC acceptable [facility] , [id number] 20:46:00 Test Item Value Reference Range Interpretation Comments test urine, POC (test Negative code = 4929869) Internal QC (test code = 257) QC acceptable [facility] , [id number] 20:46:00 Test Item Value Reference Range Interpretation Comments test urine, POC (test Negative code = 8422768) Internal QC (test code = 257) QC acceptable [facility] , [id number] 20:46:00 Test Item Value Reference Range Interpretation Comments test urine, POC (test Negative code = 7680399) Internal QC (test code = 257) QC acceptable [facility] , [id number] 20:46:00 Test Item Value Reference Range Interpretation Comments test urine, POC (test Negative code = 0601913) Internal QC (test code = 257) QC acceptable [facility] , [id number] 20:46:00 Test Item Value Reference Range Interpretation Comments test urine, POC (test Negative code = 4819807) Internal QC (test code = 257) QC acceptable [facility] , [id number] 20:46:00 Test Item Value Reference Range Interpretation Comments test urine, POC (test Negative code = 7639418) Internal QC (test code = 257) QC acceptable [address]2021-12-27 17:27:33 Test Item Value Reference Range Interpretation Comments Ventricular rate (test code = 253) Atrial rate (test code = 255) SD interval (test code = 266) QRSD interval [...] of 04-JUN-2021 18:19,-No significant change was found- [address]2021-12-27 17:27:33 Test Item Value Reference Range Interpretation Comments Ventricular rate (test code = 253) Atrial rate (test code = 255) SD interval (test code = 266) QRSD interval [...] of 04-JUN-2021 18:19,-No significant change was found- [address]2021-12-27 17:27:33 Test Item Value Reference Range Interpretation Comments Ventricular rate (test code = 253) Atrial rate (test code = 255) SD interval (test code = 266) QRSD interval [...] of 04-JUN-2021 18:19,-No significant change was found- [address]2021-12-27 17:27:33 Test Item Value Reference Range Interpretation Comments Ventricular rate (test code = 253) Atrial rate (test code = 255) SD interval (test code = 266) QRSD interval [...] of 04-JUN-2021 18:19,-No significant change was found- [address]2021-12-27 17:27:33 Test Item Value Reference Range Interpretation Comments Ventricular rate (test code = 253) Atrial rate (test code = 255) SD interval (test code = 266) QRSD interval [...] of 04-JUN-2021 18:19,-No significant change was found- [address]2021-12-27 17:27:33 Test Item Value Reference Range Interpretation Comments Ventricular rate (test code = 253) Atrial rate (test code = 255) SD interval (test code = 266) QRSD interval [...] of 04-JUN-2021 18:19,-No significant change was found- [address]2021-12-27 17:27:33 Test Item Value Reference Range Interpretation Comments Ventricular rate (test code = 253) Atrial rate (test code = 255) SD interval (test code = 266) QRSD interval [...] of 04-JUN-2021 18:19,-No significant change was found- [address]2021-12-27 17:27:33 Test Item Value Reference Range Interpretation Comments Ventricular rate (test code = 253) Atrial rate (test code = 255) SD interval (test code = 266) QRSD interval [...] of 04-JUN-2021 18:19,-No significant change was found- [facility] and [id number] 11:06:00 Test Item Value Reference Range Interpretation Comments ABO grouping (test code = 883-9) B Rh type (test code = 80917-7) POS Antibody screen (gel) (test code = NEG 890-4) [facility] and [id number] 11:06:00 Test Item Value Reference Range Interpretation Comments ABO grouping (test code = 883-9) B Rh type (test code = 50943-6) POS Antibody screen (gel) (test code = NEG 890-4) [facility] [id number] 11:06:00 Test Item Value Reference Range Interpretation Comments ABO grouping (test code = 883-9) B Rh type (test code = 99826-1) POS Antibody screen (gel) (test code = NEG 890-4) [facility] [id number] 11:06:00 Test Item Value Reference Range Interpretation Comments ABO grouping (test code = 883-9) B Rh type (test code = 22184-3) POS Antibody screen (gel) (test code = NEG 890-4) [facility] [id number] 11:06:00 Test Item Value Reference Range Interpretation Comments ABO grouping (test code = 883-9) B Rh type (test code = 60356-6) POS Antibody screen (gel) (test code = NEG 890-4) [facility] and [id number] 11:06:00 Test Item Value Reference Range Interpretation Comments ABO grouping (test code = 883-9) B Rh type (test code = 08680-4) POS Antibody screen (gel) (test code = NEG 890-4) [facility] [id number] 11:06:00 Test Item Value Reference Range Interpretation Comments ABO grouping (test code = 883-9) B Rh type (test code = 73392-3) POS Antibody screen (gel) (test code = NEG 890-4) [facility] [id number] 11:06:00 Test Item Value Reference Range Interpretation Comments ABO grouping (test code = 883-9) B Rh type (test code = 03881-6) POS Antibody screen (gel) (test code = NEG 890-4) [facility] RNA [Presence] in Respiratory specimen by EMANUEL with probe [id number] 19:37:44 Test Item Value Reference Range Interpretation Comments SARS-CoV-2 (COVID-19) RNA Not detected Not-Detected [Presence] in Respiratory specimen by EMANUEL with probe detection (test code = 42072-6) 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 (test code = 09554-4) Whether the patient has symptoms related to condition of interest (test code = 47279-2) Patient was hospitalized because of this condition (test code = 05109-4) Whether the patient was admitted to intensive care unit (ICU) for condition of interest (test code = 38571-2) Whether patient resides in a congregate care setting (test code = 11150-7) Tissue [id number] 20:18:46 Test Item Value Reference Range Interpretation Comments Tissue culture No growth Specimen isolate (test after 3 days. InformationSp ecimen code = 27700-8) Source: Tiss ueSpecimen Site: Thigh: in fected right thigh wou [facility] [id number] 20:18:46 Test Item Value Reference Range Interpretation Comments Tissue culture No growth Specimen isolate (test after 3 days. InformationSp ecimen code = 75451-2) Source: Tiss ueSpecimen Site: Thigh: in fected right thigh wou [facility] [id number] 20:18:46 Test Item Value Reference Range Interpretation Comments Tissue culture No growth Specimen isolate (test after 3 days. InformationSp ecimen code = 79361-0) Source: Tiss ueSpecimen Site: Thigh: in fected right thigh wou [facility] [id number] 20:18:46 Test Item Value Reference Range Interpretation Comments Tissue culture No growth Specimen isolate (test after 3 days. InformationSp ecimen code = 52627-5) Source: Tiss ueSpecimen Site: Thigh: in fected right thigh wou [facility] [id number] 20:18:46 Test Item Value Reference Range Interpretation Comments Tissue culture No growth Specimen isolate (test after 3 days. InformationSp ecimen code = 29817-2) Source: Tiss ueSpecimen Site: Thigh: in fected right thigh wou [facility] [id number] 20:18:46 Test Item Value Reference Range Interpretation Comments Tissue culture No growth Specimen isolate (test after 3 days. InformationSp ecimen code = 83861-0) Source: Tiss ueSpecimen Site: Thigh: in fected right thigh wou [facility] [id number] 20:18:46 Test Item Value Reference Range Interpretation Comments Tissue culture No growth Specimen isolate (test after 3 days. InformationSp ecimen code = 90037-7) Source: [facility] [place] Hospitalecimen Site: Thigh: in fected right [facility] [id number] 20:18:46 Test Item Value Reference Range Interpretation Comments Tissue culture No growth Specimen isolate (test after 3 days. InformationSp ecimen code = 56794-8) Source: Tiss ueSpecimen Site: Thigh: [facility]ected [facility] [id number] 20:24:42 Test Item Value Reference Range Interpretation Comments AFB stain No acid fast Specimen (test code = bacilli (AFB) InformationSpe cimen 676-7) seen. Source: Drainag eSpecimen Site: Thigh: [facility]ect[facility] wound [facility] [id number] 20:24:42 Test Item Value Reference Range Interpretation Comments AFB stain No acid fast Specimen (test code = bacilli (AFB) InformationSpe cimen 676-7) seen. Source: Drainag eSpecimen Site: Thigh: [facility] fected wound right [facility] [id number] 20:24:42 Test Item Value Reference Range Interpretation Comments AFB stain No acid fast Specimen (test code = bacilli (AFB) InformationSpe cimen 676-7) seen. Source: [place] eSpecimen Site: Thigh: [facility]ect[facility] [id number] 20:24:42 Test Item Value Reference Range Interpretation Comments AFB stain No acid fast Specimen (test code = bacilli (AFB) InformationSpe cimen 676-7) seen. Source: [place] eSpecimen Site: Thigh: [facility]ect[facility] [id number] 20:24:42 Test Item Value Reference Range Interpretation Comments AFB stain No acid fast Specimen (test code = bacilli (AFB) InformationSpe cimen 676-7) seen. Source: Drainag eSpecimen Site: Thigh: [facility]ect[facility] [id number] 20:24:42 Test Item Value Reference Range Interpretation Comments AFB stain No acid fast Specimen (test code = bacilli (AFB) InformationSpe cimen 676-7) seen. Source: Drainag eSpecimen Site: Thigh: [facility]ected wound [facility] [id number] 20:24:42 Test Item Value Reference Range Interpretation Comments AFB stain No acid fast Specimen (test code = bacilli (AFB) InformationSpe cimen 676-7) seen. Source: [place] eSpecimen Site: Thigh: [facility]ected wound right [facility] [id number] 20:24:42 Test Item Value Reference Range Interpretation Comments AFB stain No acid fast Specimen (test code = bacilli (AFB) InformationSpe cimen 676-7) seen. Source: Drainag eSpecimen Site: Thigh: in fected wound right [facility] [id number] 09:49:57 Test Item Value Reference Range Interpretation Comments Urine culture No growth Specimen isolate (test after 24 InformationSpe cimen code = 07791-9) hours Source: Urin eSpecimen Site: [facility]2021-12-20 09:49:57 Test Item Value Reference Range Interpretation Comments Urine culture No growth Specimen isolate (test after 24 InformationSpe cimen code = 89006-0) hours Source: Urin eSpecimen Site: [facility]2021-12-20 09:49:57 Test Item Value Reference Range Interpretation Comments Urine culture No growth Specimen isolate (test after 24 InformationSpe cimen code = 22518-6) hours Source: Urin eSpecimen Site: [facility]2021-12-20 09:49:57 Test Item Value Reference Range Interpretation Comments Urine culture No growth Specimen isolate (test after 24 InformationSpe cimen code = 51059-0) hours Source: [facility] eSpecimen Site: [facility]2021-12-20 09:49:57 Test Item Value Reference Range Interpretation Comments Urine culture No growth Specimen isolate (test after 24 InformationSpe cimen code = 36372-5) hours Source: [facility] eSpecimen Site: [facility]2021-12-20 09:49:57 Test Item Value Reference Range Interpretation Comments Urine culture No growth Specimen isolate (test after 24 InformationSpe cimen code = 01825-4) hours Source: [facility] vemucpb4631[facility]-47 09:49:57 Test Item Value Reference Range Interpretation Comments Urine culture No growth Specimen isolate (test after 24 InformationSpe cimen code = 27894-5) hours Source: [facility] bsyzcyf3178-42-84 09:49:57 Test Item Value Reference Range Interpretation Comments Urine culture No growth Specimen isolate (test after 24 InformationSpe cimen code = 83494-8) hours Source: [facility] Site: [facility] cat [facility] sxsugbiiwbwb6455-79-62 12:52:00 Test Item Value Reference Range Interpretation Comments ABO grouping (test code = 883-9) B Rh type (test code = 96201-0) POS [facility] napohuwhjgwr4783-08-78 12:52:00 Test Item Value Reference Range Interpretation Comments ABO grouping (test code = 883-9) B Rh type (test code = 61824-5) POS [facility] zyltsdxufkyk6351-87-26 12:52:00 Test Item Value Reference Range Interpretation Comments ABO grouping (test code = 883-9) B Rh type (test code = 87620-4) [facility] mrngkeqxjjqm0170-61-09 12:52:00 Test Item Value Reference Range Interpretation Comments ABO grouping (test code = 883-9) B Rh type (test code = 40603-1) [facility] bcqfrbshuhoh5464-18-81 12:52:00 Test Item Value Reference Range Interpretation Comments ABO grouping (test code = 883-9) B Rh type (test code = 95342-6) [facility] bdeombnzjmqi8608-01-30 12:52:00 Test Item Value Reference Range Interpretation Comments ABO grouping (test code = 883-9) B Rh type (test code = 69481-3) POS [facility] aivgyhfmtqvu0011-21-70 12:52:00 Test Item Value Reference Range Interpretation Comments ABO grouping (test code = 883-9) B Rh type (test code = 46299-2) POS [facility] moenmyrzpyxm8357-51-69 12:52:00 Test Item Value Reference Range Interpretation Comments ABO grouping (test code = 883-9) B Rh type (test code = 84924-1) [facility] RNA [Presence] in Respiratory specimen by EMANUEL with probe gduwqgbic4287-16-93 03:04:32 Test Item Value Reference Range Interpretation Comments SARS-CoV-2 (COVID-19) RNA Not detected Not-Detected [Presence] in Respiratory specimen by EMANUEL with probe detection (test code = 38117-2) 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 (test code = 58502-9) Whether the patient has symptoms related to condition of interest (test code = 01763-5) Patient was hospitalized because of this condition (test code = 28678-8) Whether the patient was admitted to intensive care unit (ICU) for condition of interest (test code = 54656-9) Whether patient resides in a congregate care setting (test code = 33633-2) Prepare RBC, 1 [id number] 22:22:00 Test Item Value Reference Range Interpretation Comments Product name (test code Red Blood Cells -1, = 25) Leukored Unit number (test code = [id number] 1015058) Product code (test code P3885K61 = 3092) Dispense status (test Transfused code = 24) Blood expiration date (test code = 302) Blood type code (test code = 308) Blood type (test code = B POSITIVE 1314) Compatibility (test code Compatible = 6400) [facility] Iwdyp8257-62-99 22:22:00 Test Item Value Reference Range Interpretation Comments Product name (test code Red Blood Cells -1, = 25) Leukored Unit number (test code = [id number] 2870993) Product code (test code V4610I21 = 3092) Dispense status (test Transfused code = 24) Blood expiration date (test code = 302) Blood type code (test code = 308) Blood type (test code = B POSITIVE 1314) Compatibility (test code Compatible = 6400) [facility], 1 Tyumq0387-17-22 22:22:00 Test Item Value Reference Range Interpretation Comments Product name (test code Red Blood Cells -1, = 25) Leukored Unit number (test code = [id number] 2322829) Product code (test code O3099K47 = 3092) Dispense status (test Transfused code = 24) Blood expiration date (test code = 302) Blood type code (test code = 308) Blood type (test code = B POSITIVE 1314) Compatibility (test code Compatible = 6400) [facility], 1 [id number] 22:22:00 Test Item Value Reference Range Interpretation Comments Product name (test code Red Blood Cells -1, = 25) Leukored Unit number (test code = [id number] 1037379) Product code (test code D5539O89 = 3092) Dispense status (test Transfused code = 24) Blood expiration date (test code = 302) Blood type code (test code = 308) Blood type (test code = B POSITIVE 1314) Compatibility (test code Compatible = 6400) [facility] Imzqs2822-35-42 22:22:00 Test Item Value Reference Range Interpretation Comments Product name (test code Red Blood Cells -1, = 25) Leukored Unit number (test code = [id number] 5379248) Product code (test code E7405F17 = 3092) Dispense status (test Transfused code = 24) Blood expiration date (test code = 302) Blood type code (test code = 308) Blood type (test code = B POSITIVE 1314) Compatibility (test code Compatible = 6400) [facility], 1 Onqrs9204-40-15 22:22:00 Test Item Value Reference Range Interpretation Comments Product name (test code Red Blood Cells -1, = 25) Leukored Unit number (test code = [id number] 6036323) Product code (test code U4788H17 = 3092) Dispense status (test Transfused code = 24) Blood expiration date (test code = 302) Blood type code (test code = 308) Blood type (test code = B POSITIVE 1314) Compatibility (test code Compatible = 6400) [facility], 1 Efmqf0106-99-41 22:22:00 Test Item Value Reference Range Interpretation Comments Product name (test code Red Blood Cells -1, = 25) Leukored Unit number (test code = [id number] 0908743) Product code (test code K4671W44 = 3092) Dispense status (test Transfused code = 24) Blood expiration date (test code = 302) Blood type code (test code = 308) Blood type (test code = B POSITIVE 1314) Compatibility (test code Compatible = 6400) [facility] RBC, 1 [id number] 22:22:00 Test Item Value Reference Range Interpretation Comments Product name (test code Red Blood Cells -1, = 25) Leukored Unit number (test code = [id number] 2218542) Product code (test code Q1787W04 = 3092) Dispense status (test Transfused code = 24) Blood expiration date (test code = 302) Blood type code (test code = 308) Blood type (test code = B POSITIVE 1314) Compatibility (test code Compatible = 6400) [facility] pathology sqpmahe2228-37-34 20:10:46 Test Item Value Reference Range Interpretation Comments Case number (test code = [id number]) Surgical pathology See link below for report (test code = PDF Lab Report 2255) Result status (test code This is Final Report = [id number]) for [address] pathology lceexbp6868-67-61 20:10:46 Test Item Value Reference Range Interpretation Comments Case number (test code = [id number]) Surgical pathology See link below for report (test code = PDF Lab Report 2255) Result status (test code This is Final Report = [id number]) for [address] pathology dwxsyyj0500-38-00 20:10:46 Test Item Value Reference Range Interpretation Comments Case number (test code = [id number]) Surgical pathology See link below for report (test code = PDF Lab Report 2255) Result status (test code This is Final Report = [id number]) for [address] pathology lqqyfld6491-36-69 20:10:46 Test Item Value Reference Range Interpretation Comments Case number (test code = [id number]) Surgical pathology See link below for report (test code = PDF Lab Report 2255) Result status (test code This is Final Report = 8846432) for [address] pathology rjiinga8921-78-09 20:10:46 Test Item Value Reference Range Interpretation Comments Case number (test code = [id number]) Surgical pathology See link below for report (test code = PDF Lab Report 2255) Result status (test code This is Final Report = 7494578) for [address] pathology [id number] 20:10:46 Test Item Value Reference Range Interpretation Comments Case number (test code = [id number]) Surgical pathology See link below for report (test code = PDF Lab Report 2255) Result status (test code This is Final Report = 9864059) for [address] pathology hrwmoyq6966-32-48 20:10:46 Test Item Value Reference Range Interpretation Comments Case number (test code = [id number]) Surgical pathology See link below for report (test code = PDF Lab Report 2255) Result status (test code This is Final Report = 9996519) for [address] pathology ycmspee1877-42-56 20:10:46 Test Item Value Reference Range Interpretation Comments Case number (test code = [id number]) Surgical pathology See link below for report (test code = PDF Lab Report 2255) Result status (test code This is Final Report = 1503635) [facility] [address] [facility], 1 Zjuzr1087-17-94 15:35:00 Test Item Value Reference Range Interpretation Comments Product name (test code Platele tAph LR, Path = 25) Red cont3 Unit number (test code = [id number] 8576187) Product code (test code B1453B68 = 3092) Dispense status (test Transfused code = 24) Blood expiration date (test code = 302) Blood type code (test code = 308) Blood type (test code = O POSITIVE 1314) Compatibility (test code Not required = 6400) [facility], 1 Socdx6790-55-07 15:35:00 Test Item Value Reference Range Interpretation Comments Product name (test code Platele tAph LR, Path = 25) Red cont3 Unit number (test code = [id number] 0610871) Product code (test code Q7384D17 = 3092) Dispense status (test Transfused code = 24) Blood expiration date (test code = 302) Blood type code (test code = 308) Blood type (test code = O POSITIVE 1314) Compatibility (test code Not required = 6400) [facility] 1 Adhoh5368-27-55 15:35:00 Test Item Value Reference Range Interpretation Comments Product name (test code Platerick tAp LR, Path = 25) Red cont3 Unit number (test code = [id number] 8710543) Product code (test code I6681C35 = 3092) Dispense status (test Transfused code = 24) Blood expiration date (test code = 302) Blood type code (test code = 308) Blood type (test code = O POSITIVE 1314) Compatibility (test code Not required = 6400) [facility], 1 Tgjzm6525-63-72 15:35:00 Test Item Value Reference Range Interpretation Comments Product name (test code Platerick tAp LR, Path = 25) Red cont3 Unit number (test code = [id number] 9463375) Product code (test code W7717C82 = 3092) Dispense status (test Transfused code = 24) Blood expiration date (test code = 302) Blood type code (test code = 308) Blood type (test code = O POSITIVE 1314) Compatibility (test code Not required = 6400) [facility], 1 Zucec5142-39-43 15:35:00 Test Item Value Reference Range Interpretation Comments Product name (test code Platerick tAp LR, Path = 25) Red cont3 Unit number (test code = [id number] 3939799) Product code (test code M7512T43 = 3092) Dispense status (test Transfused code = 24) Blood expiration date (test code = 302) Blood type code (test code = 308) Blood type (test code = O POSITIVE 1314) Compatibility (test code Not required = 6400) [facility], 1 Ulzvt4151-26-40 15:35:00 Test Item Value Reference Range Interpretation Comments Product name (test code Platele tAph LR, Path = 25) Red cont3 Unit number (test code = [id number] 2099544) Product code (test code B3376A88 = 3092) Dispense status (test Transfused code = 24) Blood expiration date (test code = 302) Blood type code (test code = 308) Blood type (test code = O POSITIVE 1314) Compatibility (test code Not required = 6400) [facility], 1 Vfrbf5159-45-67 15:35:00 Test Item Value Reference Range Interpretation Comments Product name (test [facility] = [facility]) Red cont3 Unit number (test code = [id number] 7825340) Product code (test code L3555P03 = 3092) Dispense status (test Transfused code = 24) Blood expiration date (test code = 302) Blood type code (test code = 308) Blood type (test code = O POSITIVE 1314) Compatibility (test code Not required = 6400) [facility], 1 Aovzd7841-85-64 15:35:00 Test Item Value Reference Range Interpretation Comments Product name (test code [facility] = 25) Red cont3 Unit number (test code = [id number] 8585306) Product code (test code D2203Q63 = 3092) Dispense status (test Transfused code = 24) Blood expiration date (test code = 302) Blood type code (test code = 308) Blood type (test code = O POSITIVE 1314) Compatibility (test code Not required = 6400) [facility] fjgn5205-12-15 12:13:24 Test Item Value Reference Range Interpretation Comments Activated clotting time See_Comment H Oper ator Name: (test code = 5298) Bryn Morales ID: [id number] [Automated mess age] The system Tum[employer] generated this result transmitted ref erence range: 96 - 152 sec. The reference r leo was not used to interpret this result as normal/abnor mal. Lab Interpretation (test Abnormal code = 79428-4) [facility] dzaj6375-67-75 12:13:24 Test Item Value Reference Range Interpretation Comments Activated clotting time See_Comment H Oper ator Name: (test code = 5298) Joswiak R eneaDevice ID: [id number] [Automated mess age] The system [employer] h generated this result transmitted ref erence range: 96 - 152 sec. The reference r leo was not used to interpret this result as normal/abnor mal. Lab Interpretation (test Abnormal code = 61320-9) [facility] kasf7209-74-62 12:13:24 Test Item Value Reference Range Interpretation Comments Activated clotting time See_Comment H Oper ator Name: (test code = 5298) Bryn R eneaDevice ID: [id number] [Automated mess age] The system [employer] h generated this result transmitted ref erence range: 96 - 152 sec. The reference r leo was not used to interpret this result as normal/abnor mal. Lab Interpretation (test Abnormal code = 87643-7) [facility] hckg7447-58-15 12:13:24 Test Item Value Reference Range Interpretation Comments Activated clotting time See_Comment H Oper ator Name: (test code = 5298) Bryn R eneaDevice ID: [id number] [Automated mess age] The system [employer] h generated this result transmitted ref erence range: 96 - 152 sec. The reference r leo was not used to interpret this result as normal/abnor mal. Lab Interpretation (test Abnormal code = 45700-0) [facility] idpm0168-79-38 12:13:24 Test Item Value Reference Range Interpretation Comments Activated clotting time See_Comment H Oper ator Name: (test code = 5298) Bryn R eneaDevice ID: [id number] [Automated mess age] The system [employer] h generated this result transmitted ref erence range: 96 - 152 sec. The reference r leo was not used to interpret this result as normal/abnor mal. Lab Interpretation (test Abnormal code = 66921-1) [facility] iyic1264-66-43 12:13:24 Test Item Value Reference Range Interpretation Comments Activated clotting time See_Comment H Oper ator Name: (test code = 5298) Bryn R eneaDevice ID: [id number] [Automated mess age] The system [employer] h generated this result transmitted ref erence range: 96 - 152 sec. The reference r leo was not used to interpret this result as normal/abnor mal. Lab Interpretation (test Abnormal code = 96138-0) [facility] kwre0814-05-36 12:13:24 Test Item Value Reference Range Interpretation Comments Activated clotting time See_Comment H Oper ator Name: (test code = 5298) Bryn Denny norbertoeaDevice ID: [id number] [Automated mess age] The system [employer] generated this result transmitted ref erence range: 96 - 152 sec. The reference r leo was not used to interpret this result as normal/abnor mal. Lab Interpretation (test Abnormal code = 57884-2) [facility] gchl9455-54-54 12:13:24 Test Item Value Reference Range Interpretation Comments Activated clotting time See_Comment H Oper ator Name: (test code = 5298) Bryn Denny norbertoeaDevice ID: [id number] [Automated mess age] The system [employer] generated this result transmitted ref erence range: 96 - 152 sec. The reference r leo was not used to interpret this result as normal/abnor mal. Lab Interpretation (test Abnormal code = 63083-5) [facility] xvcmw5553-13-20 14:37:48 Test Item Value Reference Range Interpretation Comments POC sodium (test code = 138 mmol/L 768-390 6776-0) POC potassium (test 5.5 mmol/L 3.5-5 H code = 6298-4) POC glucose (test code 295 mg/dL 65-99 H = 2339-0) POC creatinine (test 5.3 mg/dl 0.5-0.9 H Operato r Name: Pugne code = 00934-9) Viridiana ID: [id number] POC hemoglobin (test 18.4 g/dL 12-16 H code = 718-7) POC hematocrit (test 54 % 37-47 H code = 4544-3) Lab Interpretation Abnormal (test code = 76348-9) [facility] eqdhh0755-54-70 14:37:48 Test Item Value Reference Range Interpretation Comments POC sodium (test code = 138 mmol/L 683-188 0053-0) POC potassium (test 5.5 mmol/L 3.5-5 H code = 6298-4) POC glucose (test code 295 mg/dL 65-99 H = 2339-0) POC creatinine (test 5.3 mg/dl 0.5-0.9 H Operato r Name: Johannae code = 31719-4) AileenDevice ID: [id number] POC hemoglobin (test 18.4 g/dL 12-16 H code = 718-7) POC hematocrit (test 54 % 37-47 H code = 4544-3) Lab Interpretation Abnormal (test code = 34653-4) [facility]2021-11-29 14:37:48 Test Item Value Reference Range Interpretation Comments POC sodium (test code = 138 mmol/L 815-996 0773-0) POC potassium (test 5.5 mmol/L 3.5-5 H code = 6298-4) POC glucose (test code 295 mg/dL 65-99 H = 2339-0) POC creatinine (test 5.3 mg/dl 0.5-0.9 H Operato r Name: Johannae code = 78744-2) AileenDevice ID: [id number] POC hemoglobin (test 18.4 g/dL 12-16 H code = 718-7) POC hematocrit (test 54 % 37-47 H code = 4544-3) Lab Interpretation Abnormal (test code = 39112-7) [facility]2021-11-29 14:37:48 Test Item Value Reference Range Interpretation Comments POC sodium (test code = 138 mmol/L 327-413 9666-0) POC potassium (test 5.5 mmol/L 3.5-5.0 H code = 6298-4) POC glucose (test code 295 mg/dL 65-99 H = 2339-0) POC creatinine (test 5.3 mg/dl 0.5-0.9 H Operato r Name: Carminagne code = 78531-4) AileenDevice ID: [id number] POC hemoglobin (test 18.4 g/dL 12.0-16.0 H code = 718-7) POC hematocrit (test 54 % 37-47 H code = 4544-3) Lab Interpretation Abnormal (test code = 76065-5) [facility]2021-11-29 14:37:48 Test Item Value Reference Range Interpretation Comments POC sodium (test code = 138 mmol/L 878-022 7175-0) POC potassium (test 5.5 mmol/L 3.5-5 H code = 6298-4) POC glucose (test code 295 mg/dL 65-99 H = 2339-0) POC creatinine (test 5.3 mg/dl 0.5-0.9 H Operato r Name: Pugne code = 02787-6) AileenDevice ID: [id number] POC hemoglobin (test 18.4 g/dL 12-16 H code = 718-7) POC hematocrit (test 54 % 37-47 H code = 4544-3) Lab Interpretation Abnormal (test code = 15238-3) [facility]2021-11-29 14:37:48 Test Item Value Reference Range Interpretation Comments POC sodium (test code = 138 mmol/L 772-494 3717-0) POC potassium (test 5.5 mmol/L 3.5-5 H code = 6298-4) POC glucose (test code 295 mg/dL 65-99 H = 2339-0) POC creatinine (test 5.3 mg/dl 0.5-0.9 H Operato r Name: Pugne code = 04230-2) AileenDevice ID: [id number] POC hemoglobin (test 18.4 g/dL 12-16 H code = 718-7) POC hematocrit (test 54 % 37-47 H code = 4544-3) Lab Interpretation Abnormal (test code = 60760-1) [facility]2021-11-29 14:37:48 Test Item Value Reference Range Interpretation Comments POC sodium (test code = 138 mmol/L 738-713 8503-0) POC potassium (test 5.5 mmol/L 3.5-5 H code = 6298-4) POC glucose (test code 295 mg/dL 65-99 H = 2339-0) POC creatinine (test 5.3 mg/dl 0.5-0.9 H Operato r Name: Pugne code = 11712-8) AileenDevice ID: [id number] POC hemoglobin (test 18.4 g/dL 12-16 H code = 718-7) POC hematocrit (test 54 % 37-47 H code = 4544-3) Lab Interpretation Abnormal (test code = 37602-2) [facility] qaduq1283-48-95 14:37:48 Test Item Value Reference Range Interpretation Comments POC sodium (test code = 138 mmol/L 655-647 9418-0) POC potassium (test 5.5 mmol/L 3.5-5 H code = 6298-4) POC glucose (test code 295 mg/dL 65-99 H = 2339-0) POC creatinine (test 5.3 mg/dl 0.5-0.9 H Operato r Name: Pat code = 88052-1) Viridiana ID: [id number] POC hemoglobin (test 18.4 g/dL 12-16 H code = 718-7) POC hematocrit (test 54 % 37-47 H code = 4544-3) Lab Interpretation Abnormal (test code = 86204-2) [facility] RNA [Presence] in Respiratory specimen by EMANUEL with probe fssgygstn3499-80-74 07:53:49 Test Item Value Reference Range Interpretation Comments SARS-CoV-2 (COVID-19) RNA Not detected Not-Detected [Presence] in Respiratory specimen by EMANUEL with probe detection (test code = 59279-7) 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 [id number] 08:17:00 Test Item Value Reference Range Interpretation Comments BUN (test code = BUN) 27 7-22 [facility] [employer] [id number] 08:17:00 Test Item Value Reference Range Interpretation Comments Creatinine Lvl (test code = Creatinine 4.95 0.50-1.40 Lvl) [facility] [employer] [id number] 08:17:00 Test Item Value Reference Range Interpretation Comments Sodium Lvl (test code = Sodium Lvl) 136 135-145 [place] 401531-08-11 08:17:00 Test Item Value Reference Range Interpretation Comments Potassium Lvl (test code = Potassium 3.9 3.5-5.1 Lvl) [place] 401531-08-11 08:17:00 Test Item Value Reference Range Interpretation Comments Chloride Lvl (test code = Chloride Lvl) 103 95-109 [place] 401531-08-11 08:17:00 Test Item Value Reference Range Interpretation Comments CO2 (test code = CO2) 30 24-32 [place] 401531-08-11 08:17:00 Test Item Value Reference Range Interpretation Comments AGAP (test code = AGAP) 6.9 10.0-20.0 [place] 401531-08-11 08:17:00 Test Item Value Reference Range Interpretation Comments Calcium Lvl (test code = Calcium Lvl) 8.5 8.5-10.5 [place] 401531-08-11 08:17:00 Test Item Value Reference Range Interpretation Comments eGFR (test code = eGFR) 10 [place] 401531-08-11 08:17:00 Test Item Value Reference Range Interpretation Comments Phosphorus (test code = Phosphorus) 3.0 2.5-4.5 [place] 401531-08-11 08:17:00 Test Item Value Reference Range Interpretation Comments Magnesium Lvl (test code = Magnesium 2.4 1.8-2.4 Lvl) [place] 868961-08-11 08:17:00 Test Item Value Reference Range Interpretation Comments WBC (test code = WBC) 2.3 3.7-10.4 [place] [address]-08-11 08:17:00 Test Item Value Reference Range Interpretation Comments RBC (test code = RBC) 2.65 4.20-5.40 [place] [address]-08-11 08:17:00 Test Item Value Reference Range Interpretation Comments Hgb (test code = Hgb) 7.9 12.0-16.0 [place] [address]-08-11 08:17:00 Test Item Value Reference Range Interpretation Comments Hct (test code = Hct) 24.0 36.0-48.0 [place] [address]-08-11 08:17:00 Test Item Value Reference Range Interpretation Comments MCV (test code = MCV) 90.6 80.0-98.0 [facility]bpMZECVSQZZN4566[facility]77-16 08:17:00 Test Item Value Reference Range Interpretation Comments MCH (test code = MCH) 29.7 pg 27.0-31.0 [facility] CenterSpfrlbpKKKWPTESUO9646-79-85 08:17:00 Test Item Value Reference Range Interpretation Comments MCHC (test code = MCHC) 32.7 32.0-36.0 [facility] CenterSufwzjdVKUOCEOMFE2909-20-99 08:17:00 Test Item Value Reference Range Interpretation Comments RDW (test code = RDW) 19.1 11.5-14.5 [facility] CenterXjrxsebRYNAJMSUSQ6592-63-59 08:17:00 Test Item Value Reference Range Interpretation Comments Platelet (test code = Platelet) 71 133-450 [facility] CenterWegbjpvEAINNWQGKS9427-39-32 08:17:00 Test Item Value Reference Range Interpretation Comments MPV (test code = MPV) 9.9 7.4-10.4 [facility] CenterYtxvyecLPCZRRIPAB7619-27-12 08:17:00 Test Item Value Reference Range Interpretation Comments Segs (test code = Segs) 56.1 45.0-75.0 [facility] CenterLghwentZLEJAWZGOG0278-83-06 08:17:00 Test Item Value Reference Range Interpretation Comments Lymphocytes (test code = Lymphocytes) 28.9 20.0-40.0 [facility] CenterEewqgmtUDHSHMYDJQ0465-32-45 08:17:00 Test Item Value Reference Range Interpretation Comments Monocytes (test code = Monocytes) 8.1 2.0-12.0 [facility] CenterBdyxselYTXDZQWVFH2997-39-85 08:17:00 Test Item Value Reference Range Interpretation Comments Eosinophils (test code = 5.9 See_Comment [A utomated message] The Eosinophils) system which ge nerated this result tra nsmitted reference range : <=4.0. The reference r leo was not used to int erpret this result as normal/abnormal . [facility] CenterCzercreDGJFFFVIFZ5084-92-38 08:17:00 Test Item Value Reference Range Interpretation Comments Basophils (test code = 1.0 See_Comment [Aut omated message] The Basophils) system which ge nerated this result tra nsmitted reference range : <=1.0. The reference r leo was not used to int erpret this result as normal/abnormal . [place] 868961-08-11 08:17:00 Test Item Value Reference Range Interpretation Comments Neutrophils # (test code = Neutrophils 1.3 1.5-8.1 #) [place] 868961-08-11 08:17:00 Test Item Value Reference Range Interpretation Comments Lymphocytes # (test code = Lymphocytes 0.7 1.0-5.5 #) [place] [address]-08-11 08:17:00 Test Item Value Reference Range Interpretation Comments Monocytes # (test code 0.2 See_Comment [Aut omated message] The = Monocytes #) system which generated this result tra nsmitted reference range : <=0.8. The reference r leo was not used to int erpret this result as normal/abnormal . [place] [address]-08-11 08:17:00 Test Item Value Reference Range Interpretation Comments Eosinophils # (test code 0.1 See_Comment [A utomated message] The = Eosinophils #) system whic h generated this result tra nsmitted reference range : <=0.5. The reference r leo was not used to int erpret this result as normal/abnormal . [place] 401531-08-10 09:30:00 Test Item Value Reference Range Interpretation Comments Glucose Lvl (test code = Glucose Lvl) 61 70-99 [place] 401531-08-10 09:30:00 Test Item Value Reference Range Interpretation Comments BUN (test code = BUN) 13 7-22 [place] 401531-08-10 09:30:00 Test Item Value Reference Range Interpretation Comments Creatinine Lvl (test code = Creatinine 3.71 0.50-1.40 Lvl) [place] 401531-08-10 09:30:00 Test Item Value Reference Range Interpretation Comments Sodium Lvl (test code = Sodium Lvl) 136 135-145 [place] 401531-08-10 09:30:00 Test Item Value Reference Range Interpretation Comments Potassium Lvl (test code = Potassium 4.3 3.5-5.1 Lvl) [place] 401531-08-10 09:30:00 Test Item Value Reference Range Interpretation Comments Chloride Lvl (test code = Chloride Lvl) 103 95-109 [place] [address]-08-10 09:30:00 Test Item Value Reference Range Interpretation Comments CO2 (test code = CO2) 27 24-[address]08-10 09:30:00 Test Item Value Reference Range Interpretation Comments Calcium Lvl (test code = Calcium Lvl) 7.9 8.5-10.5 [place] [address]-08-10 09:30:00 Test Item Value Reference Range Interpretation Comments AGAP (test code = AGAP) 10.3 10.0-20.0 [address]08-10 09:30:00 Test Item Value Reference Range Interpretation Comments eGFR (test code = eGFR) 15 [place] [address]-08-10 09:30:00 Test Item Value Reference Range Interpretation Comments Magnesium Lvl (test code = Magnesium 2.3 1.8-2.4 Lvl) [place] 401531-08-10 09:30:00 Test Item Value Reference Range Interpretation Comments Phosphorus (test code = Phosphorus) 3.1 2.5-4.5 [place] [address]-08-10 09:30:00 Test Item Value Reference Range Interpretation Comments Segs (test code = Segs) 61.5 45.0-75.0 [place] [address]-08-10 09:30:00 Test Item Value Reference Range Interpretation Comments Lymphocytes (test code = Lymphocytes) 24.6 20.0-40.0 [place] [address]-08-10 09:30:00 Test Item Value Reference Range Interpretation Comments Monocytes (test code = Monocytes) 7.4 2.0-12.0 [place] [address]-08-10 09:30:00 Test Item Value Reference Range Interpretation Comments Eosinophils (test code = 5.5 See_Comment [A utomated message] The Eosinophils) system which ge nerated this result tra nsmitted reference range : <=4.0. The reference r leo was not used to int erpret this result as normal/abnormal . [place] [address]-08-10 09:30:00 Test Item Value Reference Range Interpretation Comments Basophils (test code = 1.0 See_Comment [Aut omated message] The Basophils) system which ge nerated this result tra nsmitted reference range : <=1.0. The reference r leo was not used to int erpret this result as normal/abnormal . [place] 868961-08-10 09:30:00 Test Item Value Reference Range Interpretation Comments Neutrophils # (test code = Neutrophils 1.6 1.5-8.1 #) [place] 868961-08-10 09:30:00 Test Item Value Reference Range Interpretation Comments Lymphocytes # (test code = Lymphocytes 0.6 1.0-5.5 #) [place] 868961-08-10 09:30:00 Test Item Value Reference Range Interpretation Comments Monocytes # (test code 0.2 See_Comment [Aut omated message] The = Monocytes #) system which generated this result tra nsmitted reference range : <=0.8. The reference r leo was not used to int erpret this result as normal/abnormal . [place] 868961-08-10 09:30:00 Test Item Value Reference Range Interpretation Comments Eosinophils # (test code 0.1 See_Comment [A utomated message] The = Eosinophils #) system whic h generated this result tra nsmitted reference range : <=0.5. The reference r leo was not used to int erpret this result as normal/abnormal . [facility] CenterIdxffgjIOQWTSVSQK8263-76-86 09:30:00 Test Item Value Reference Range Interpretation [...] studies, if clinically indicated, are recommended. CPT: 85367 [place] 868961-08-10 09:30:00 Test Item Value Reference Range Interpretation Comments WBC (test code = WBC) 2.5 3.7-10.4 [place] 868961-08-10 09:30:00 Test Item Value Reference Range Interpretation Comments RBC (test code = RBC) 2.68 4.20-5.40 [place] [address]-08-10 09:30:00 Test Item Value Reference Range Interpretation Comments Hgb (test code = Hgb) 8.2 12.0-16.0 [place] 868961-08-10 09:30:00 Test Item Value Reference Range Interpretation Comments Hct (test code = Hct) 24.3 36.0-48.0 [place] 868961-08-10 09:30:00 Test Item Value Reference Range Interpretation Comments MCV (test code = MCV) 90.9 80.0-98.0 [place] 868961-08-10 09:30:00 Test Item Value Reference Range Interpretation Comments MCH (test code = MCH) 30.5 pg 27.0-31.0 [place] 868961-08-10 09:30:00 Test Item Value Reference Range Interpretation Comments MCHC (test code = MCHC) 33.6 32.0-36.0 [place] 868961-08-10 09:30:00 Test Item Value Reference Range Interpretation Comments RDW (test code = RDW) 19.4 11.5-14.5 [place] 868961-08-10 09:30:00 Test Item Value Reference Range Interpretation Comments Platelet (test code = Platelet) 70 133-450 [facility] CenterTdmcohwVYKVRTWUKO2986-96-03 09:30:00 Test Item Value Reference Range Interpretation Comments MPV (test code = MPV) 10.7 7.4-10.4 [facility]2021-08-09 05:10:00 Test Item Value Reference Range Interpretation Comments Glucose Lvl (test code = Glucose Lvl) 69 70-99 [place] 401531-08-09 05:10:00 Test Item Value Reference Range Interpretation Comments BUN (test code = BUN) 29 7-22 [place] 401531-08-09 05:10:00 Test Item Value Reference Range Interpretation Comments Creatinine Lvl (test code = Creatinine 5.14 0.50-1.40 Lvl) [place] 401531-08-09 05:10:00 Test Item Value Reference Range Interpretation Comments Sodium Lvl (test code = Sodium Lvl) 134 135-145 [place] 401531-08-09 05:10:00 Test Item Value Reference Range Interpretation Comments Potassium Lvl (test code = Potassium 5.1 3.5-5.1 Lvl) [place] 401531-08-09 05:10:00 Test Item Value Reference Range Interpretation Comments Chloride Lvl (test code = Chloride Lvl) 98 95-109 [place] 401531-08-09 05:10:00 Test Item Value Reference Range Interpretation Comments CO2 (test code = CO2) 29 24-32 [place] 401531-08-09 05:10:00 Test Item Value Reference Range Interpretation Comments Calcium Lvl (test code = Calcium Lvl) 7.6 8.5-10.5 [place] 401531-08-09 05:10:00 Test Item Value Reference Range Interpretation Comments AGAP (test code = AGAP) 12.1 10.0-20.0 [place] 401531-08-09 05:10:00 Test Item Value Reference Range Interpretation Comments eGFR (test code = eGFR) 10 [place] 401531-08-09 05:10:00 Test Item Value Reference Range Interpretation Comments Magnesium Lvl (test code = Magnesium 2.3 1.8-2.4 Lvl) [place] 401531-08-09 05:10:00 Test Item Value Reference Range Interpretation Comments Phosphorus (test code = Phosphorus) 5.0 2.5-4.5 [place] 868961-08-09 05:10:00 Test Item Value Reference Range Interpretation Comments WBC (test code = WBC) 2.7 3.7-10.4 [place] 868961-08-09 05:10:00 Test Item Value Reference Range Interpretation Comments RBC (test code = RBC) 2.80 4.20-5.40 [place] 868961-08-09 05:10:00 Test Item Value Reference Range Interpretation Comments Hgb (test code = Hgb) 8.5 12.0-16.0 [place] 868961-08-09 05:10:00 Test Item Value Reference Range Interpretation Comments Hct (test code = Hct) 25.7 36.0-48.0 [place] 868961-08-09 05:10:00 Test Item Value Reference Range Interpretation Comments MCV (test code = MCV) 91.7 80.0-98.0 [place] 868961-08-09 05:10:00 Test Item Value Reference Range Interpretation Comments MCH (test code = MCH) 30.4 pg 27.0-31.0 [facility] CenterPlomqbqRXIARLUOEF6538-38-83 05:10:00 Test Item Value Reference Range Interpretation Comments MCHC (test code = MCHC) 33.1 32.0-36.0 [facility] CenterMrfftstAZMBBGTGDR3661-07-97 05:10:00 Test Item Value Reference Range Interpretation Comments RDW (test code = RDW) 19.2 11.5-14.5 [facility] CenterLvxblnlHQMANAHQCD3496-72-03 05:10:00 Test Item Value Reference Range Interpretation Comments Platelet (test code = Platelet) 72 133-450 [facility] CenterGylsrqnTSJTNMAJQY4188-01-20 05:10:00 Test Item Value Reference Range Interpretation Comments MPV (test code = MPV) 9.9 7.4-10.4 [facility] CenterHoxepcdVLSIIQHLDX3890-36-36 05:10:00 Test Item Value Reference Range Interpretation Comments Segs (test code = Segs) 72.6 45.0-75.0 [facility] CenterOonyommMDPURPPIME0717-11-98 05:10:00 Test Item Value Reference Range Interpretation Comments Lymphocytes (test code = Lymphocytes) 15.9 20.0-40.0 [facility] CenterHhkcwexIBPUWSMYDJ4773-11-22 05:10:00 Test Item Value Reference Range Interpretation Comments Monocytes (test code = Monocytes) 7.3 2.0-12.0 [facility] CenterOpzyuxjOOHPNJEMVM1167-36-98 05:10:00 Test Item Value Reference Range Interpretation Comments Eosinophils (test code = 3.4 See_Comment [A utomated message] The Eosinophils) system which ge nerated this result tra nsmitted reference range : <=4.0. The reference r leo was not used to int erpret this result as normal/abnormal . [facility] CenterVexmsewCNFJGHJWXK0644-60-08 05:10:00 Test Item Value Reference Range Interpretation Comments Basophils (test code = 0.8 See_Comment [Aut omated message] The Basophils) system which ge nerated this result tra nsmitted reference range : <=1.0. The reference r leo was not used to int erpret this result as normal/abnormal . [facility] CenterLhpmkozJVCRYSLJTL3309-92-74 05:10:00 Test Item Value Reference Range Interpretation Comments Neutrophils # (test code = Neutrophils 1.9 1.5-8.1 #) [facility]AL[facility]39[facility]58[facility]48 05:10:00 Test Item Value Reference Range Interpretation Comments Lymphocytes # (test code = Lymphocytes 0.4 1.0-5.5 #) [facility] CenterLgtqpbjOJIUDHKIJC1215-51-67 05:10:00 Test Item Value Reference Range Interpretation Comments Monocytes # (test code 0.2 See_Comment [Aut omated message] The = Monocytes #) system which generated this result tra nsmitted reference range : <=0.8. The reference r leo was not used to int erpret this result as normal/abnormal . [facility] CenterLtkxnwoFVWILQXOSS7297-38-33 05:10:00 Test Item Value Reference Range Interpretation Comments Eosinophils # (test code 0.1 See_Comment [A utomated message] The = Eosinophils #) system whic h generated this result tra nsmitted reference range : <=0.5. The reference r leo was not used to int erpret this result as normal/abnormal . [facility]2021-08-09 05:10:00 Test Item Value Reference Range Interpretation Comments Ca Ion WB (test code = Ca Ion WB) 1.10 1.05-1.25 [facility]2021-08-09 05:10:00 Test Item Value Reference Range Interpretation Comments Ca Norm WB (test code = Ca Norm WB) 1.06 1.05-1.25 [facility] VTHMZEYSZQ7985-49-01 18:36:00 Test Item Value Reference Range Interpretation Comments C difficile DNA (test Negative (01/26/21 1:36 code = C difficile DNA) PM) [facility]2021-08-08 07:33:00 Test Item Value Reference Range Interpretation Comments Ca Ion WB (test code = Ca Ion WB) 1.12 1.05-1.25 [facility]2021-08-08 07:33:00 Test Item Value Reference Range Interpretation Comments Ca Norm WB (test code = Ca Norm WB) 1.07 1.05-1.25 [facility]2021-08-08 07:30:00 Test Item Value Reference Range Interpretation Comments Glucose Lvl (test code = Glucose Lvl) 65 70-99 [place] 401531-08-08 07:30:00 Test Item Value Reference Range Interpretation Comments BUN (test code = BUN) 21 7-22 [place] 401531-08-08 07:30:00 Test Item Value Reference Range Interpretation Comments Creatinine Lvl (test code = Creatinine 4.18 0.50-1.40 Lvl) [place] 401531-08-08 07:30:00 Test Item Value Reference Range Interpretation Comments Sodium Lvl (test code = Sodium Lvl) 136 135-145 [place] 401531-08-08 07:30:00 Test Item Value Reference Range Interpretation Comments Potassium Lvl (test code = Potassium 4.5 3.5-5.1 Lvl) [place] 401531-08-08 07:30:00 Test Item Value Reference Range Interpretation Comments Chloride Lvl (test code = Chloride Lvl) 99 95-109 [place] 401531-08-08 07:30:00 Test Item Value Reference Range Interpretation Comments CO2 (test code = CO2) 31 24-32 [place] 401531-08-08 07:30:00 Test Item Value Reference Range Interpretation Comments AGAP (test code = AGAP) 10.5 10.0-20.0 [place] 401531-08-08 07:30:00 Test Item Value Reference Range Interpretation Comments Calcium Lvl (test code = Calcium Lvl) 7.9 8.5-10.5 [place] 401531-08-08 07:30:00 Test Item Value Reference Range Interpretation Comments eGFR (test code = eGFR) 13 [place] 401531-08-08 07:30:00 Test Item Value Reference Range Interpretation Comments Magnesium Lvl (test code = Magnesium 2.2 1.8-2.4 Lvl) [place] 401531-08-08 07:30:00 Test Item Value Reference Range Interpretation Comments Phosphorus (test code = Phosphorus) 4.4 2.5-4.5 [place] 868961-08-08 07:30:00 Test Item Value Reference Range Interpretation Comments WBC (test code = WBC) 2.3 3.7-10.4 [place] 868961-08-08 07:30:00 Test Item Value Reference Range Interpretation Comments RBC (test code = RBC) 2.88 4.20-5.40 [facility] CenterKtsbxdhRFZZTUDZIP0818-20-19 07:30:00 Test Item Value Reference Range Interpretation Comments Hgb (test code = Hgb) 8.6 12.0-16.0 [facility] CenterGaxpccxUPFFBRNTGY5840-85-88 07:30:00 Test Item Value Reference Range Interpretation Comments Hct (test code = Hct) 26.6 36.0-48.0 [facility] CenterJqwjokjZGVABEZAYM1384-33-37 07:30:00 Test Item Value Reference Range Interpretation Comments MCV (test code = MCV) 92.2 80.0-98.0 [facility] CenterCigrynaMVSEOHLMDA5217-46-22 07:30:00 Test Item Value Reference Range Interpretation Comments MCH (test code = MCH) 29.8 pg 27.0-31.0 [facility] CenterQtvfyaqBVACZVYMHJ5564-38-61 07:30:00 Test Item Value Reference Range Interpretation Comments MCHC (test code = MCHC) 32.4 32.0-36.0 [facility] CenterAlyhxeeLEVMXHHHXY8021-94-60 07:30:00 Test Item Value Reference Range Interpretation Comments RDW (test code = RDW) 19.7 11.5-14.5 [facility] CenterSpnvfqqSBAYCMQVYN4801-37-89 07:30:00 Test Item Value Reference Range Interpretation Comments Platelet (test code = Platelet) 83 133-450 [facility] CenterWkvqbnfXPUXSVSASG9356-57-33 07:30:00 Test Item Value Reference Range Interpretation Comments MPV (test code = MPV) 10.2 7.4-10.4 [facility] CenterCcxivreICXFXHWENC4901-82-60 07:30:00 Test Item Value Reference Range Interpretation Comments Segs (test code = Segs) 64.0 45.0-75.0 [facility] CenterJteawdwSYUZFLDPZW8766-50-26 07:30:00 Test Item Value Reference Range Interpretation Comments Lymphocytes (test code = Lymphocytes) 24.1 20.0-40.0 [facility] CenterTelsyczZPXWHOPFTH5237-22-20 07:30:00 Test Item Value Reference Range Interpretation Comments Monocytes (test code = Monocytes) 7.0 2.0-12.0 [facility] CenterRbcdkjnIMAGWECTHH3249-71-21 07:30:00 Test Item Value Reference Range Interpretation Comments Eosinophils (test code = 3.7 See_Comment [A utomated message] The Eosinophils) system which ge nerated this result tra nsmitted reference range : <=4.0. The reference r leo was not used to int erpret this result as normal/abnormal . [place] 868961-08-08 07:30:00 Test Item Value Reference Range Interpretation Comments Basophils (test code = 1.2 See_Comment [Aut omated message] The Basophils) system which ge nerated this result tra nsmitted reference range : <=1.0. The reference r leo was not used to int erpret this result as normal/abnormal . [place] 868961-08-08 07:30:00 Test Item Value Reference Range Interpretation Comments Neutrophils # (test code = Neutrophils 1.5 1.5-8.1 #) [place] 868961-08-08 07:30:00 Test Item Value Reference Range Interpretation Comments Lymphocytes # (test code = Lymphocytes 0.6 1.0-5.5 #) [place] 868961-08-08 07:30:00 Test Item Value Reference Range Interpretation Comments Monocytes # (test code 0.2 See_Comment [Aut omated message] The = Monocytes #) system which generated this result tra nsmitted reference range : <=0.8. The reference r leo was not used to int erpret this result as normal/abnormal . [place] 868961-08-08 07:30:00 Test Item Value Reference Range Interpretation Comments Eosinophils # (test code 0.1 See_Comment [A utomated message] The = Eosinophils #) system whic h generated this result tra nsmitted reference range : <=0.5. The reference r leo was not used to int erpret this result as normal/abnormal . [place] 401531-08-07 09:32:00 Test Item Value Reference Range Interpretation Comments Glucose Lvl (test code = Glucose Lvl) 59 70-99 [place] 401531-08-07 09:32:00 Test Item Value Reference Range Interpretation Comments BUN (test code = BUN) 11 7-22 [place] 401531-08-07 09:32:00 Test Item Value Reference Range Interpretation Comments Creatinine Lvl (test code = Creatinine 2.75 0.50-1.40 Lvl) [place] 401531-08-07 09:32:00 Test Item Value Reference Range Interpretation Comments Sodium Lvl (test code = Sodium Lvl) 138 135-145 [place] 401531-08-07 09:32:00 Test Item Value Reference Range Interpretation Comments Potassium Lvl (test code = Potassium 4.1 3.5-5.1 Lvl) [place] 401531-08-07 09:32:00 Test Item Value Reference Range Interpretation Comments Chloride Lvl (test code = Chloride Lvl) 104 95-109 [place] 401531-08-07 09:32:00 Test Item Value Reference Range Interpretation Comments CO2 (test code = CO2) 29 24-32 [place] 401531-08-07 09:32:00 Test Item Value Reference Range Interpretation Comments Calcium Lvl (test code = Calcium Lvl) 8.3 8.5-10.5 [place] 401531-08-07 09:32:00 Test Item Value Reference Range Interpretation Comments AGAP (test code = AGAP) 9.1 10.0-20.0 [place] 401531-08-07 09:32:00 Test Item Value Reference Range Interpretation Comments eGFR (test code = eGFR) 21 [place] 401531-08-07 09:32:00 Test Item Value Reference Range Interpretation Comments Magnesium Lvl (test code = Magnesium 2.2 1.8-2.4 Lvl) [place] 401531-08-07 09:32:00 Test Item Value Reference Range Interpretation Comments Phosphorus (test code = Phosphorus) 3.9 2.5-4.5 [place] 868961-08-07 09:32:00 Test Item Value Reference Range Interpretation Comments WBC (test code = WBC) 2.3 3.7-10.4 [place] 868961-08-07 09:32:00 Test Item Value Reference Range Interpretation Comments RBC (test code = RBC) 2.78 4.20-5.40 [place] [id number] 09:32:00 Test Item Value Reference Range Interpretation Comments Hgb (test code = Hgb) 8.4 12.0-16.0 [place] [id number] 09:32:00 Test Item Value Reference Range Interpretation Comments Hct (test code = Hct) 25.2 36.0-48.0 [facility]IhwvjnaCNVDZJSDBR7744-30-89 09:32:00 Test Item Value Reference Range Interpretation Comments MCV (test code = MCV) 90.5 80.0-98.[address] [facility]ZucvkhuUADPWUYDPE6233-57-68 09:32:00 Test Item Value Reference Range Interpretation Comments MCH (test code = MCH) 30.4 pg 27.0-31.0 [facility] CenterIlfbizaGCMSWHOOUB4179-89-42 09:32:00 Test Item Value Reference Range Interpretation Comments MCHC (test code = MCHC) 33.5 32.0-36.0 [facility] CenterEwhvjttDTVULGANZR5951-39-14 09:32:00 Test Item Value Reference Range Interpretation Comments RDW (test code = RDW) 19.0 11.5-14.5 [facility]XgvtsymHAKDUTPJEY0310-66-35 09:32:00 Test Item Value Reference Range Interpretation Comments Platelet (test code = Platelet) 87 133-450 [facility] CenterDfciwuzYDQHDSBFJE7398-02-96 09:32:00 Test Item Value Reference Range Interpretation Comments MPV (test code = MPV) 10.0 7.4-10.4 [facility] CenterOutrig[facility] [id number] 05:33:00 Test Item Value Reference Range Interpretation Comments ABO/Rh (test code = ABO/Rh) B POS [facility] [place] [id number] 05:33:00 Test Item Value Reference Range Interpretation Comments Antibody Scrn (test Negative (01/24/21 12:33 code = Antibody Scrn) AM) [facility] CenterLbmozfpVBESJZJPFE5606-97-29 05:33:00 Test Item Value Reference Range Interpretation Comments Segs (test code = Segs) 60.2 45.0-75.0 [facility] CenterMlxkalxUQPGISSCDN8434-32-40 05:33:00 Test Item Value Reference Range Interpretation Comments Lymphocytes (test code = Lymphocytes) 28.6 20.0-40.0 [facility] CenterUvhokoyUSRHKIACRI2296-39-41 05:33:00 Test Item Value Reference Range Interpretation Comments Monocytes (test code = Monocytes) 5.8 2.0-12.0 [facility] HospitalMybflpuVPHFZGCODT9313-09-55 05:33:00 Test Item Value Reference Range Interpretation Comments Eosinophils (test code = 4.2 See_Comment [A utomated message] The Eosinophils) system which ge nerated this result tra nsmitted reference range : <=4.0. The reference r leo was not used to int erpret this result as normal/abnormal . [facility] CenterXchotroDYNCUPFPJC2507-50-22 05:33:00 Test Item Value Reference Range Interpretation Comments Basophils (test code = 1.2 See_Comment [Aut omated message] The Basophils) system which ge nerated this result tra nsmitted reference range : <=1.0. The reference r leo was not used to int erpret this result as normal/abnormal . [facility] CenterIxofqbmHOIAYZULGZ0277-43-52 05:33:00 Test Item Value Reference Range Interpretation Comments Neutrophils # (test code = Neutrophils 2.2 1.5-8.1 #) [facility] CenterNfdzaisCNNEPSGAWB5421-42-38 05:33:00 Test Item Value Reference Range Interpretation Comments Lymphocytes # (test code = Lymphocytes 1.1 1.0-5.5 #) [facility] CenterEukoeilLHSXRIVGFX0617-64-93 05:33:00 Test Item Value Reference Range Interpretation Comments Monocytes # (test code 0.2 See_Comment [Aut omated message] The = Monocytes #) system which generated this result tra nsmitted reference range : <=0.8. The reference r leo was not used to int erpret this result as normal/abnormal . [facility] CenterKvwxfpiINECRCTSQQ3633-15-55 05:33:00 Test Item Value Reference Range Interpretation Comments Eosinophils # (test code 0.2 See_Comment [A utomated message] The = Eosinophils #) system whic h generated this result tra nsmitted reference range : <=0.5. The reference r leo was not used to int erpret this result as normal/abnormal . [facility] CenterJnyshsoDXFEIXIMIQ9671-22-39 05:53:00 Test Item Value Reference Range Interpretation Comments PT (test code = PT) 14.4 s 12.0-14.7 [facility] CenterIgiueccKGTHHBKSHS0939-88-95 05:53:00 Test Item Value Reference Range Interpretation Comments INR (test code = INR) 1.13 1 0.85-1.17 [facility] CenterQkrtawdMOJKWFOAUY2306-85-75 05:53:00 Test Item Value Reference Range Interpretation Comments Fibrinogen Lvl (test code = Fibrinogen 319 230-510 Lvl) [facility] Cent[id number] 05:53:00 Test Item Value Reference Range Interpretation Comments Thrombin Time (test code = Thrombin 15.9 s 15.0-21.2 Time) [address]08-05 05:53:00 Test Item Value Reference Range Interpretation Comments PTT (test code = PTT) 47.0 s 22.9-35.[address]08-05 05:53:00 Test Item Value Reference Range Interpretation Comments D-Dimer (test code = D-Dimer) 0.[address]08-05 05:53:00 Test Item Value Reference Range Interpretation Comments Basophils # (test code 0.1 See_Comment [Aut omated message] The = Basophils #) system which generated this result tra nsmitted reference range : <=0.2. The reference r leo was not used to int erpret this result as normal/abnormal . [place] [id number] 05:53:00 Test Item Value Reference Range Interpretation Comments Ca Ion WB (test code = Ca Ion WB) 1.24 1.05-1.25 [place] [id number] 05:53:00 Test Item Value Reference Range Interpretation Comments Ca Norm WB (test code = Ca Norm WB) 1.25 1.05-1.25 [facility] CenterTaboola [id number] 10:09:00 Test Item Value Reference Range Interpretation Comments ALT (test code = ALT) 49 See_Comment [Auto mated message] The system which ge nerated this result transmit rohit reference range : <=65. The reference range was not used to interpr et this result as reji l/abnormal. [facility] CenterTab[facility]a [id number] 10:09:00 Test Item Value Reference Range Interpretation Comments Albumin Lvl (test code = Albumin Lvl) 2.8 3.5-5.0 [facility] CenterTab[facility] [id number] 10:09:00 Test Item Value Reference Range Interpretation Comments Alk Phos (test code = Alk Phos) 41 39-136 [facility] HospitalIdea Village [id number] 10:09:00 Test Item Value Reference Range Interpretation Comments Bili Direct (test code 0.2 See_Comment [Aut omated message] The = Bili Direct) system which generated this result tra nsmitted reference range : <=0.3. The reference r leo was not used to int erpret this result as reji l/abnormal. [facility] CenterTab[facility] [id number] 10:09:00 Test Item Value Reference Range Interpretation Comments Bili Total (test code = Bili Total) 0.6 0.2-1.3 [facility] [id number] 10:09:00 Test Item Value Reference Range Interpretation Comments Bili Indirect (test 0.4 See_Comment [Automa rohit message] The code = Bili Indirect) system which generated this result tra nsmitted reference range : <=1.0. The reference r leo was not used to int erpret this result as normal/abnormal . [facility] CenterTab[facility] [id number] 10:09:00 Test Item Value Reference Range Interpretation Comments Total Protein (test code = Total 5.6 6.4-8.4 Protein) [facility] CenterTab[facility] [id number] 10:09:00 Test Item Value Reference Range Interpretation Comments AST (test code = AST) 33 See_Comment [Auto mated message] The system which ge nerated this result transmit rohit reference range : <=37. The reference range was not used to interpr et this result as reji l/abnormal. [facility] CenterTab[facility] [id number] 10:09:00 Test Item Value Reference Range Interpretation Comments Globulin (test code = Globulin) 2.8 2.7-4.2 [facility] CenterTab[facility] [id number] 10:09:00 Test Item Value Reference Range Interpretation Comments A/G Ratio (test code = A/G Ratio) 1.0 1 0.7-1.6 [facility] CenterTab[facility] [id number] 10:09:00 Test Item Value Reference Range Interpretation Comments Amylase Lvl (test code = Amylase Lvl) 19 25-115 [facility] CenterTab[facility] [id number] 10:09:00 Test Item Value Reference Range Interpretation Comments Lipase Lvl (test code = Lipase Lvl) no gt 73-393 [facility] HospitalQqvbiwjBMDPWLQYSQ3764-52-42 10:09:00 Test Item Value Reference Range Interpretation Comments PTT (test code = PTT) 41.4 s 22.9-35.8 [facility] CenterJkuefmoKIZLETOZRP9770-04-05 10:09:00 Test Item Value Reference Range Interpretation Comments PT (test code = PT) 15.4 s 12.0-14.7 [facility] HospitalDnankibAXISMDYZKJ9373-58-48 10:09:00 Test Item Value Reference Range Interpretation Comments INR (test code = INR) 1.24 1 0.85-1.[address] [facility] HospitalImipmstIDWMEEDOKE0719-55-36 10:09:00 Test Item Value Reference Range Interpretation Comments Fibrinogen Lvl (test code = Fibrinogen 312 230-510 Lvl) [facility] HospitalH[id number] 10:09:00 Test Item Value Reference Range Interpretation Comments Thrombin Time (test code = Thrombin 16.6 s 15.0-21.2 Time) [facility] CenterRjiwvgmCRARLFUUTE7320-57-49 10:09:00 Test Item Value Reference Range Interpretation Comments D-Dimer (test code = D-Dimer) 4.[address] [facility] Hospit[id number] 10:09:00 Test Item Value Reference Range Interpretation Comments Basophils # (test code 0.1 See_Comment [Aut omated message] The = Basophils #) system which generated this result tra nsmitted reference range : <=0.2. The reference r leo was not used to int erpret this result as normal/abnormal . [facility] [id number] 10:09:00 Test Item Value Reference Range Interpretation Comments Hgb A1C (test code = Hgb A1C) 5.6 [facility] HospitalCHEM [id number] 09:07:00 Test Item Value Reference Range Interpretation Comments Amylase Lvl (test code = Amylase Lvl) 4 25-[address] [facility] HospitalDbalnqfWXNBVGIGUE3618-27-30 09:07:00 Test Item Value Reference Range Interpretation Comments Thrombin Time (test code = Thrombin 18.0 s 15.0-21.2 Time) [facility] HospitalAouvyxbMAQKOZCHVL3042-74-72 09:07:00 Test Item Value Reference Range Interpretation Comments PT (test code = PT) 24.6 s 12.0-14.[address] [facility] HospitalSdoblkeWLIQIFFNFX8445-16-00 09:07:00 Test Item Value Reference Range Interpretation Comments INR (test code = INR) 2.31 1 0.85-1.[address] [facility] HospitalSebnupoPZSZGDLFLW1374-30-78 09:07:00 Test Item Value Reference Range Interpretation Comments PTT (test code = PTT) 57.5 s 22.9-35.8 [facility] HospitalZbxkauvQMRQXXAJJD2615-08-06 09:07:00 Test Item Value Reference Range Interpretation Comments Fibrinogen Lvl (test code = Fibrinogen 125 230-510 Lvl) [facility] Hos[id number] 09:07:00 Test Item Value Reference Range Interpretation Comments D-Dimer (test code = D-Dimer) 2.28 [facility] [id number] 04:52:00 Test Item Value Reference Range Interpretation Comments RBC product (test code Product available = RBC product) (01/21/21 11:52 PM) [facility] HospitalCARUnlimited ConceptsAC [id number] 00:38:00 Test Item Value Reference Range Interpretation Comments Troponin-I (test code no gt See_Comment [Auto mated message] The = Troponin-I) system which g enerated this result transmit rohit reference range : <=0.40. The reference r leo was not used to interpr et this result as reji l/abnormal. [facility] CenteraWhere [id number] 17:47:00 Test Item Value Reference Range Interpretation Comments BNP (test code = BNP) 2[address] [facility] CenterEnteGreat [id number] 17:47:00 Test Item Value Reference Range Interpretation Comments Troponin-I (test code 0.02 See_Comment [Auto mated message] The = Troponin-I) system which g enerated this result transmit rohit reference range : <=0.40. The reference r leo was not used to interpr et this result as reji l/abnormal. [facility] CenterW[id number] 17:47:00 Test Item Value Reference Range Interpretation Comments Hep Bs Ag (test code Negative *NA*(01/21/21 = Hep Bs Ag) 12:47 PM) [facility] CenterTab[facility] [id number] 17:43:00 Test Item Value Reference Range Interpretation Comments B/C Ratio (test code = B/C Ratio) 5 1 6-25 [facility] [employer] [id number] 17:43:00 Test Item Value Reference Range Interpretation Comments ALT (test code = ALT) 66 See_Comment [Auto mated message] The system which ge nerated this result transmit rohit reference range : <=65. The reference range was not used to interpr et this result as reji l/abnormal. [facility] [employer] [id number] 17:43:00 Test Item Value Reference Range Interpretation Comments Albumin Lvl (test code = Albumin Lvl) 3.0 3.5-5.0 [facility] [employer]2021-08-03 17:43:00 Test Item Value Reference Range Interpretation Comments Alk Phos (test code = Alk Phos) 40 39-136 [facility] [employer] [id number] 17:43:00 Test Item Value Reference Range Interpretation Comments Bili Total (test code = Bili Total) 0.5 0.2-1.3 [facility] [employer]2021-08-03 17:43:00 Test Item Value Reference Range Interpretation Comments Total Protein (test code = Total 5.7 6.4-8.4 Protein) [facility] [employer]2021-08-03 17:43:00 Test Item Value Reference Range Interpretation Comments AST (test code = AST) 52 See_Comment [Auto mated message] The system which ge nerated this result transmit rohit reference range : <=37. The reference range was not used to interpr et this result as reji l/abnormal. [employer]2021-08-03 17:43:00 Test Item Value Reference Range Interpretation Comments Globulin (test code = Globulin) 2.7 2.7-4.2 [facility] [employer]2021-08-03 17:43:00 Test Item Value Reference Range Interpretation Comments A/G Ratio (test code = A/G Ratio) 1.1 1 0.7-1.6 [facility] [employer] [id number] 17:43:00 Test Item Value Reference Range Interpretation Comments Lactic Acid Lvl (test code = Lactic 1.1 0.5-2.2 Acid Lvl) [employer] [id number] 16:20:00 Test Item Value Reference Range Interpretation Comments ABO/Rh (test code = ABO/Rh) B POS [facility] [employer] [id number] 16:20:00 Test Item Value Reference Range Interpretation Comments Antibody Scrn (test Negative (01/21/21 11:20 code = Antibody Scrn) AM) [facility] [id number] 16:20:00 Test Item Value Reference Range Interpretation Comments Anisocyte (test code = 1+ *ABN*(01/21/21 Anisocyte) 11:20 AM) [facility] CenterannREFERENCE LAB [id number] 15:35:00 Test Item Value Reference Range Interpretation Comments Lactase Lvl (test code = Lactase Lvl) 2.0 [facility]REF[facility] [id number] 15:35:00 Test Item Value Reference Range Interpretation Comments Sucrase Lvl (test code = Sucrase Lvl) 38.6 [facility]REF[facility] [id number] 15:35:00 Test Item Value Reference Range Interpretation Comments Maltase Lvl (test code = Maltase Lvl) 177.2 [facility] LAB [id number] 15:35:00 Test Item Value Reference Range Interpretation Comments Palatinase Lvl (test code = Palatinase 13.8 Lvl) [facility] CenterQterxdfAUDRJXHCXJYM4230-73-60 13:21:00 Test Item Value Reference Range Interpretation Comments Potassium WB (test code = Potassium WB) 5.1 3.5-5.1 [facility] HospitalPfojfnpBICVJSRQHJGYL2572-67-30 13:21:00 Test Item Value Reference Range Interpretation Comments S Preg (test code = S Negative 8*NA*(01/21/21 Preg) 8:21 AM) [facility] HospitalFazaaxmTIJILYKOMC6536-30-63 11:19:00 Test Item Value Reference Range Interpretation Comments Coronavirus (COVID-19) Not Detected (01/21/21 EMANUEL (test code = 6:19 AM) Coronavirus (COVID-19) EMANUEL) [facility] [id number] 16:39:05 Test Item Value Reference Range Interpretation Comments Glucose POC (test 183 mg/dL 70-115 H If you con registered dental assistant rda your code = Glucose POC) patient critically ill, the [facility]-Accu Check Infrom II meter should not be used for Glucose determination. Draw a venous Glucose and send to the main Lab for analysis. Urine [id number] 11:32:13 Test Item Value Reference Range Interpretation [...] Escherichia coli C Urine Added by GL_SJM_UA_CUL_INDPOC Qieuyeu8046-24-42 07:52:10 Test Item Value Reference Range Interpretation Comments Glucose POC (test 160 mg/dL 70-115 H If you con registered dental assistant rda your code = Glucose POC) patient critically ill, the [facility]-Accu Check Infrom II meter should not be used for Glucose determination. Draw a venous Glucose and send to the main Lab for analysis. POC [id number] 19:32:05 Test Item Value Reference Range Interpretation Comments Glucose POC (test 184 mg/dL 70-115 H If you con registered dental assistant rda your code = Glucose POC) patient critically ill, the [facility]-Accu Check Infrom II meter should not be used for Glucose determination. Draw a venous Glucose and send to the main Lab for analysis. POC [id number] 17:16:35 Test Item Value Reference Range Interpretation Comments Glucose POC (test 281 mg/dL 70-115 H Notify RN or MDIf you code = Glucose POC) consider your patient critically ill, the [place]-Accu Chec k Infrom II meter should not be used for Glucos e determination. Draw a venous Glucose and send to the main Lab for analysis. POC [id number] 12:00:38 Test Item Value Reference Range Interpretation Comments Glucose POC (test 138 mg/dL 70-115 H Notify RN or MDIf you code = Glucose POC) consider your patient critically ill, the [employer]-Accu Chec k Infrom II meter should not be used for Glucos e determination. Draw a venous Glucose and send to the main Lab for analysis. POC Wvyirbr1538-74-08 07:41:32 Test Item Value Reference Range Interpretation Comments Glucose POC (test 206 mg/dL 70-115 H Notify RN or MDIf you code = Glucose POC) consider your patient critically ill, the [employer]-Accu Chec k Infrom II meter should not be used for Glucos e determination. Draw a venous Glucose and send to the main Lab for analysis. Urinalysis Xkfqionfolc1095-23-79 21:07:21 Test Item Value Reference Range Interpretation Comments UA WBC (test code = UA WBC) TNTC 0-5 A UA RBC (test code = UA RBC) 6-10 0-5 A UA Bacteria (test code = UA Bacteria) Profuse A UA Squam Epithelial (test code = UA 6-10 A Squam Epithelial) Urinalysis with Culture, if [id number] 20:35:14 Test Item Value Reference Range Interpretation [...] Micro Indicated Not Indicated A Ind?) POC [id number] 19:06:34 Test Item Value Reference Range Interpretation Comments Glucose POC (test 207 mg/dL 70-115 H If you con registered dental assistant rda your code = Glucose POC) patient critically ill, the [employer]-Accu Check Infrom II meter should not be used for Glucose determination. Draw a venous Glucose and send to the main Lab for analysis. POC Invnruj4079-27-01 17:12:03 Test Item Value Reference Range Interpretation Comments Glucose POC (test 173 mg/dL 70-115 H Notify RN or MDIf you code = Glucose POC) consider your patient critically ill, the [employer]-Accu Chec k Infrom II meter should not be used for Glucos e determination. Draw a venous Glucose and send to the main Lab for analysis. POC Owwmeok6671-02-09 11:58:01 Test Item Value Reference Range Interpretation Comments Glucose POC (test 289 mg/dL 70-115 H Notify RN or MDIf you code = Glucose POC) consider your patient critically ill, the [employer]-Accu Chec k Infrom II meter should not be used for Glucos e determination. Draw a venous Glucose and send to the main Lab for analysis. POC [id number] 08:19:37 Test Item Value Reference Range Interpretation Comments Glucose POC (test 201 mg/dL 70-115 H Notify RN or MDIf you code = Glucose POC) consider your patient critically ill, the [employer]u Chec k Infrom II meter should not be used for Glucos e determination. Draw a venous Glucose and send to the main Lab for analysis. POC [id number] 20:37:35 Test Item Value Reference Range Interpretation Comments Glucose POC (test 272 mg/dL 70-115 H If you con registered dental assistant rda your code = Glucose POC) patient critically ill, the [employer]-Accu Check Infrom II meter should not be used for Glucose determination. Draw a venous Glucose and send to the main Lab for analysis. POC [id number] 17:23:05 Test Item Value Reference Range Interpretation Comments Glucose POC (test 229 mg/dL 70-115 H If you con registered dental assistant rda your code = Glucose POC) patient critically ill, the [employer]-Accu Check Infrom II meter should not be used for Glucose determination. Draw a venous Glucose and send to the main Lab for analysis. POC [id number] 12:01:01 Test Item Value Reference Range Interpretation Comments Glucose POC (test 155 mg/dL 70-115 H If you con registered dental assistant rda your code = Glucose POC) patient critically ill, the [facility]-Accu Check Infrom II meter should not be used for Glucose determination. Draw a venous Glucose and send to the main Lab for analysis. POC [id number] 08:07:32 Test Item Value Reference Range Interpretation Comments Glucose POC (test 248 mg/dL 70-115 H If you con registered dental assistant rda your code = Glucose POC) patient critically ill, the [place]-Accu Check Infrom II meter should not be used for Glucose determination. Draw a venous Glucose and send to the main Lab for analysis. IG [id number] 06:50:39 Test Item Value Reference Range Interpretation Comments IG (test code = IG) 0.7 % 0.0-5.0 IG Abs (test code = IG Abs) 0 x10 N Complete Blood Count with Nzlurrttotcq7563-03-62 06:50:38 Test Item Value Reference Range Interpretation [...] code = IPF) 0 % N Automated [id number] 06:50:38 Test Item Value Reference Range Interpretation Comments Neutro Auto (test code = Neutro 50.3 % 36.0-70.0 Auto) Lymph Auto (test code = Lymph Auto) 38.6 % 12.0-44.0 [place] Auto (test code = [place] Auto) 7.3 % 0.0-11.0 Eos, Auto (test code = Eos, Auto) 2.4 % 0.0-7.0 Basophil Auto (test code = Basophil 0.7 % 0.0-2.0 Auto) Neutro Absolute (test code = Neutro 3.0 x10 1.6-7.4 Absolute) Lymph Absolute (test code = Lymph 2.28 x10 .50-4.60 Absolute) [place] Absolute (test code = [place] .43 x10 .00-1.20 Absolute) Eos Absolute (test code = Eos 0.14 x10 0.00-0.74 Absolute) Baso Absolute (test code = Baso 0.04 x10 0.00-0.21 Absolute) Basic Metabolic [id number] 05:38:20 Test Item Value Reference Range Interpretation [...] = Lipemia) 0 mg/dL 8-11 Basic Metabolic [id number] 05:38:20 Test Item Value Reference Range Interpretation [...] = 0 mg/dL 8-11 Lipemia) Basic Metabolic [id number] 05:38:20 Test Item Value Reference Range Interpretation [...] code = 0 mg/dL 8-11 Lipemia) POC [id number] 20:28:33 Test Item Value Reference Range Interpretation Comments Glucose POC (test 169 mg/dL 70-115 H If you con registered dental assistant rda your code = Glucose POC) patient critically ill, the [employer]-Accu Check Infrom II meter should not be used for Glucose determination. Draw a venous Glucose and send to the main Lab for analysis. POC [id number] 16:39:30 Test Item Value Reference Range Interpretation Comments Glucose POC (test 103 mg/dL 70-115 If you con registered dental assistant rda your code = Glucose POC) patient critically ill, the [facility]-Accu Check Infrom II meter should not be used for Glucose determination. Draw a venous Glucose and send to the main Lab for analysis. RPR [id number] 12:08:56 Test Item Value Reference Range Interpretation Comments RPR Qual (test code = RPR Qual) Non-Reactive Non-Reactive Reactive Control (test code = Reactive Reactive Control) Weak Reactive Control (test Weak Reactive code = Weak Reactive Control) Non-Reactive Control (test code Non-Reactive = Non-Reactive Control) Lot # (test code = Lot #) [id number] N Expiration Dt (test code = 03-20-2021 N Expiration Dt) POC [id number] 11:52:31 Test Item Value Reference Range Interpretation Comments Glucose POC (test 250 mg/dL 70-115 H If you con registered dental assistant rda your code = Glucose POC) patient critically ill, the Merlin-Accu Check Infrom II meter should not be used for Glucose determination. Draw a venous Glucose and send to the main Lab for analysis. POC [id number] 07:55:29 Test Item Value Reference Range Interpretation Comments Glucose POC (test 205 mg/dL 70-115 H If you con registered dental assistant rda your code = Glucose POC) patient critically ill, the Merlin-Accu Check Infrom II meter should not be used for Glucose determination. Draw a venous Glucose and send to the main Lab for analysis. Lipid [id number] 05:46:04 Test Item Value Reference Range Interpretation [...] LDL/HDL Ratio=L DL Calc/HDL Chol Thyroid Stimulating [id number] 05:46:04 Test Item Value Reference Range Interpretation Comments TSH (test code = TSH) 3.274 mcIU/mL 0.550-4.780 Hemoglobin [id number] 05:41:08 Test Item Value Reference Range Interpretation Comments Hemoglobin A1c (test code 7.6 % 4.0-5.8 H Di abetic >=6.5 = Hemoglobin A1c) %Prediabet es 5.7-6.4 %Normal <5.7 % Hepatitis B Surface [id number] 21:19:36 Test Item Value Reference Range Interpretation Comments Hep Bs Ag (test code = Hep Bs Non-Reactive Non-Reactive Ag) Novel Coronavirus SARS-CoV-2, [id number] 11:16:16 Test Item Value Reference Range Interpretation [...] Emergency Use Authorization." Novel Coronavirus (COVID-19), EMANUEL [id number] 11:11:24TNPTest not sent and performed at [facility].Rapid was perfomed in Microbiology.Wrong covid test was ord ered.Urine DOA [id number] 00:17:49 Test Item Value Reference Range Interpretation [...] Propoxyphene Confirmation wi thin 7 days. Alcohol [id number] 00:17:29 Test Item Value Reference Range Interpretation Comments Ethanol Level 9.0 mg/dL N The pharmacolo gical (test code = response to blo od alcohol Ethanol Level) levels may va ry from individual to i ndividual. The fatal omkar ntration has been report ed to be >400 mg/dl. Comprehensive Metabolic [id number] 00:17:28 Test Item Value Reference Range Interpretation [...] = Lipemia) 0 g/dL 1-2 Comprehensive Metabolic [id number] 00:17:28 Test Item Value Reference Range Interpretation [...] = 0 g/dL 1-2 Lipemia) Comprehensive Metabolic [id number] 00:17:28 Test Item Value Reference Range Interpretation [...] ag e have not been validated by [facility] MDRD study and should be [...] ag e have not been validated by [facility] MDRD study and should be [...] g/dL 1-2 Lipemia) Complete Blood Count with [id number] 23:26:28 Test Item Value Reference Range Interpretation [...] code = IPF) 0 % N Automated [id number] 23:26:28 Test Item Value Reference Range Interpretation Comments Neutro Auto (test code = Neutro 67.1 % 36.0-70.0 Auto) Lymph Auto (test code = Lymph Auto) 23.3 % 12.0-44.0 [place] Auto (test code = [place] Auto) 5.8 % 0.0-11.0 Eos, Auto (test code = Eos, Auto) 2.3 % 0.0-7.0 Basophil Auto (test code = Basophil 0.8 % 0.0-2.0 Auto) Neutro Absolute (test code = Neutro 6.0 x10 1.6-7.4 Absolute) Lymph Absolute (test code = Lymph 2.10 x10 .50-4.60 Absolute) [place] Absolute (test code = [place] .52 x10 .00-1.20 Absolute) Eos Absolute (test code = Eos 0.21 x10 0.00-0.74 Absolute) Baso Absolute (test code = Baso 0.07 x10 0.00-0.21 Absolute) IG [id number] 23:26:28 Test Item Value Reference Range Interpretation Comments IG (test code = IG) 0.7 % 0.0-5.0 IG Abs (test code = IG Abs) 0 x10 N HERPES VIRUS ANTIBODY, [id number] 21:46:00 Test Item Value Reference Range Interpretation Comments HERPES VIRUS IGM (BEAKER) Negative SE E ATTACHMENT (test code = 1808) BLOOD [id number] 06:00:00 Test Item Value Reference Range Interpretation Comments CULTURE (BEAKER) (test No growth in 5 days code = 1095) BLOOD [id number] 06:00:00 Test Item Value Reference Range Interpretation Comments CULTURE (BEAKER) (test No growth in 5 days code = 1095) POCT-GLUCOSE [id number] 12:11:00 Test Item Value Reference Range Interpretation Comments POC-GLUCOSE METER 154 mg/dL 70-110 H TESTED AT [place] [address] ([facility]) (test code = [facility] 1538) [address] POCT-GLUCOSE [id number] 07:53:00 Test Item Value Reference Range Interpretation Comments POC-GLUCOSE METER 87 mg/dL 70-110 TESTED AT [place] [address] ([facility]) (test code = [facility] [address] 1538) POCT-GLUCOSE [id number] 06:49:00 Test Item Value Reference Range Interpretation Comments POC-GLUCOSE METER 79 mg/dL 70-110 TESTED AT [place] [address] ([facility]) (test code = [facility] [address] 1538) COMPREHENSIVE METABOLIC [id number] 06:15:00 Test Item Value Reference Range Interpretation [...] S NOT APPLICABLE FOR DIALYSIS PATIEN TS. [id number] 06:11:00 Test Item Value Reference Range Interpretation Comments MAGNESIUM (BEAKER) (test code = 2.1 mg/dL 1.6-2.6 627) HEPATIC FUNCTION [id number] 06:11:00 Test Item Value Reference Range Interpretation [...] code = 513 U/L 6-55 H 347) [id number] 05:30:00 Test Item Value Reference Range Interpretation Comments FIBRINOGEN LEVEL (BEAKER) (test 368 mg/dl 225-434 code = 658) [id number] 05:30:00 Test Item Value Reference Range Interpretation Comments PARTIAL THROMBOPLASTIN TIME 42.2 seconds 22.5-36.0 H ([facility]) (test code = 760) PROTHROMBIN TIME/[id number] 05:29:00 Test Item Value Reference Range Interpretation Comments PROTIME ([facility]) (test code = 14.8 seconds 11.7-14.7 H 759) INR ([facility]) (test code = 370) 1.2 <=5.9 RECOMMENDED COUMADIN/WARFARIN INR THERAPY RANGESSTANDARD DOSE: 2.0 - 3.0 Includes: PROPHYLAXIS for venous thrombosis, systemic embolization; TREATMENT for venous thrombosis and/or pulmonary embolus.HIGH RISK: Target INR is 2.5-3.5 for patients with mechanical heart valves.POCT-GLUCOSE [id number] 21:09:00 Test Item Value Reference Range Interpretation Comments POC-GLUCOSE METER 178 mg/dL 70-110 H TESTED AT [place] [address] ([facility]) (test code = [facility] 1538) [address] POCT-GLUCOSE [id number] 17:18:00 Test Item Value Reference Range Interpretation Comments POC-GLUCOSE METER 178 mg/dL 70-110 H TESTED AT [place] [address] ([facility]) (test code = [facility] Eduin [facility] 1538) [address] POCT-GLUCOSE [id number] 13:48:00 Test Item Value Reference Range Interpretation Comments POC-GLUCOSE METER 150 mg/dL 70-110 H TESTED AT [place] [address] ([facility]) (test code = [facility] Eduin [facility] 1538) [address] FACTOR 5 ACTIVITY (BLEEDING RISK)2017-01-06 10:04:00 Test Item Value Reference Range Interpretation Comments FACTOR V ACTIVITY ([facility]) (test code 90.0 % 60.0-150.0 = 665) Effective 10/24/2013: Reference Range Change-Adult onlyNew: 60.0-150.0 Previous: 50.0-150.0CYTOMEGALOVIRUS ANTIBODY, [id number] 09:42:00 Test Item Value Reference Range Interpretation Comments CYTOMEGALOVIRUS IGM ANTIBODY Negative ([facility]) (test code = 816) HERPES VIRUS ANTIBODY, [id number] 08:59:00 Test Item Value Reference Range Interpretation Comments 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[facility]) (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=DENZEL Puga 1807) CYTOMEGALOVIRUS ANTIBODY, [id number] 08:59:00 Test Item Value Reference Range Interpretation Comments CYTOMEGALOVIRUS IGG ANTIBODY Positive (BEAKER) (test code = 790) EBV-VCA ANTIBODY, [id number] 08:59:00 Test Item Value Reference Range Interpretation Comments JASE-WALL VCA IGG (BEAKER) (test Positive code = 983) EBV-VCA ANTIBODY, [id number] 08:59:00 Test Item Value Reference Range Interpretation Comments JASE-WALL VCA IGM (BEAKER) (test Negative code = 984) POCT-GLUCOSE [id number] 07:59:00 Test Item Value Reference Range Interpretation Comments POC-GLUCOSE METER 81 mg/dL 70-[address] [facility] 6720 (BEAKER) (test code = [place] [address] 1538) COMPREHENSIVE METABOLIC [id number] 06:23:00 Test Item Value Reference Range Interpretation [...] I S NOT APPLICABLE FOR DIALYSIS PATIEN MARIBETH. [id number] 06:17:00 Test Item Value Reference Range Interpretation Comments MAGNESIUM (BEAKER) (test code = 1.8 mg/dL 1.6-2.6 627) HEPATIC FUNCTION [id number] 06:17:00 Test Item Value Reference Range Interpretation [...] code = 779 U/L 6-55 H 347) [id number] 06:00:00 Test Item Value Reference Range Interpretation Comments FIBRINOGEN LEVEL (BEAKER) (test 390 mg/dl 225-434 code = 658) [id number] 06:00:00 Test Item Value Reference Range Interpretation Comments PARTIAL THROMBOPLASTIN TIME 40.2 seconds 22.5-36.0 H (BEAKER) (test code = 760) PROTHROMBIN [id number] 05:59:00 Test Item Value Reference Range Interpretation Comments PROTIME (BEAKER) (test code = 14.6 seconds 11.7-14.7 759) INR (BEAKER) (test code = 370) 1.2 <=5.9 RECOMMENDED COUMADIN/WARFARIN INR THERAPY RANGESSTANDARD DOSE: 2.0 - 3.0 Includes: PROPHYLAXIS for venous thrombosis, systemic embolization; TREATMENT for venous thrombosis and/or pulmonary embolus.HIGH RISK: Target INR is 2.5-3.5 for patients with mechanical heart valves.POCT-GLUCOSE [id number] 21:46:00 Test Item Value Reference Range Interpretation Comments POC-GLUCOSE METER 153 mg/dL 70-110 H TESTED AT [place] [address] ([facility]) (test code = [facility]ARY[facility]ENZEL D[facility] 1538) [address] POCT-GLUCOSE [id number] 18:47:00 Test Item Value Reference Range Interpretation Comments POC-GLUCOSE METER 181 mg/dL 70-110 H TESTED AT [place] [address] ([facility]) (test code = [facility] 1538) [address] POCT-GLUCOSE [id number] 12:40:00 Test Item Value Reference Range Interpretation Comments POC-GLUCOSE METER 178 mg/dL 70-110 H TESTED AT [place] [address] ([facility]) (test code = [facility] 1538) [address] POCT-GLUCOSE [id number] 07:51:00 Test Item Value Reference Range Interpretation Comments POC-GLUCOSE METER 166 mg/dL 70-110 H TESTED AT [place] [address] ([facility]) (test code = [facility] 1538) [address] COMPREHENSIVE METABOLIC [id number] 03:26:00 Test Item Value Reference Range Interpretation [...] S NOT APPLICABLE FOR DIALYSIS PATIEN TS. [id number] 03:22:00 Test Item Value Reference Range Interpretation Comments MAGNESIUM (BEAKER) (test code = 1.4 mg/dL 1.6-2.6 L 627) HEPATIC FUNCTION [id number] 03:22:00 Test Item Value Reference Range Interpretation [...] code = 1009 U/L 6-55 H 347) [id number] 03:12:00 Test Item Value Reference Range Interpretation Comments AMMONIA (BEAKER) (test code = 348) 29 mol/L 18-72 [id number] 03:10:00 Test Item Value Reference Range Interpretation Comments PARTIAL THROMBOPLASTIN TIME 42.3 seconds 22.5-36.0 H (BEAKER) (test code = 760) PROTHROMBIN TIME/[id number] 03:09:00 Test Item Value Reference Range Interpretation Comments PROTIME (BEAKER) (test code = 16.4 seconds 11.7-14.7 H 759) INR (BEAKER) (test code = 370) 1.3 <=5.9 RECOMMENDED COUMADIN/WARFARIN INR THERAPY RANGESSTANDARD DOSE: 2.0 - 3.0 Includes: PROPHYLAXIS for venous thrombosis, systemic embolization; TREATMENT for venous thrombosis and/or pulmonary embolus.HIGH RISK: Target INR is 2.5-3.5 for patients with mechanical heart valves.[id number] 03:09:00 Test Item Value Reference Range Interpretation Comments FIBRINOGEN LEVEL (BEAKER) (test 413 mg/dl 225-434 code = 658) CBC W/PLT COUNT & AUTO [id number] 03:09:00 Test Item Value Reference Range Interpretation [...] L 0.00-0.20 (test code = 417) 0.00POCT-GLUCOSE [id number] 22:33:00 Test Item Value Reference Range Interpretation Comments POC-GLUCOSE METER 230 mg/dL 70-110 H TESTED AT [place] [address] ([facility]) (test code = [place] 1538) [address] POCT-GLUCOSE [id number] 18:17:00 Test Item Value Reference Range Interpretation Comments POC-GLUCOSE METER 222 mg/dL 70-110 H TESTED AT [place] [address] ([facility]) (test code = [facility] Edu[facility] 1538) [address] COMPREHENSIVE METABOLIC [id number] 16:59:00 Test Item Value Reference Range Interpretation [...] PATIEN TS. PERIPHERAL BLOOD SMEAR - PATHOLOGIST [id number] 15:30:00 Test Item Value Reference Range Interpretation Comments RBC MORPHOLOGY Polychromasia (BEAKER) (test code = 2846) RBC MORPHOLOGY Anisocytosis (BEAKER) (test code = 58967) PERIPHERAL SMR REVIEW Cell counts confirmed (BEAKER) (test code = 2660) [id number] [facility]. [facility] (test code = (electronic signature) 9797) PROTHROMBIN [id number] 15:12:00 Test Item Value Reference Range Interpretation [...] Reference Range Interpretation Comments ANTI-NUCLEAR ANTIBODY (IVETTE) [facility] Negative Negative (test code = 418) POCT-GLUCOSE [id number] 12:47:00 Test Item Value Reference Range Interpretation Comments POC-GLUCOSE METER 212 mg/dL 70-[address] [facility] 6720 ([facility]) (test code = [place] 1538) [address] [id number] 12:34:00 Test Item Value Reference Range Interpretation Comments RPR SCREEN (MADIE) (test code = Nonreactive Nonreactive 420) CLOSTRIDIUM DIFFICILE TOXIN [id number] 10:12:00 Test Item Value Reference Range Interpretation [...] Reference Range Change-Adult onlyNew: 60.0-150.0 Previous: 50.0-150.0POCT-GLUCOSE [id number] 06:40:00 Test Item Value Reference Range Interpretation Comments POC-GLUCOSE METER 167 mg/dL 70-[address] [facility] 6720 (MADIE) (test code = [place] 1538) [address] COMPREHENSIVE METABOLIC [id number] 04:08:00 Test Item Value Reference Range Interpretation [...] ESTIM ATED GFR. Specimen slightly ictericHEPATIC FUNCTION [id number] 04:06:00 Test Item Value Reference Range Interpretation [...] 1091 U/L 6-55 H 347) Specimen slightly [id number] 04:01:00 Test Item Value Reference Range Interpretation Comments FIBRINOGEN LEVEL (BEAKER) (test 379 mg/dl 225-434 code = 658) [id number] 04:01:00 Test Item Value Reference Range Interpretation Comments PARTIAL THROMBOPLASTIN TIME 40.7 seconds 22.5-36.0 H (BEAKER) (test code = 760) PROTHROMBIN TIME/[id number] 04:00:00 Test Item Value Reference Range Interpretation [...] mechanical heart valves.CBC W/PLT COUNT & AUTO [id number] 03:56:00 Test Item Value Reference Range Interpretation [...] L 0.00-0.20 (test code = 417) 0.00POCT-GLUCOSE [id number] 00:19:00 Test Item Value Reference Range Interpretation Comments POC-GLUCOSE METER 159 mg/dL 70-[address] [facility] 67 ([facility]) (test code = [facility] Eduin [facility] 1538) [address] POCT-GLUCOSE [id number] 18:56:00 Test Item Value Reference Range Interpretation Comments POC-GLUCOSE METER 192 mg/dL 70-[address] [facility] 6720 ([facility]) (test code = [facility] 1538) [address] COMPREHENSIVE METABOLIC [id number] 16:55:00 Test Item Value Reference Range Interpretation [...] CALCULATE ESTIM ATED GFR. Specimen slightly ictericPROTHROMBIN [id number] 16:37:00 Test Item Value Reference Range Interpretation Comments PROTIME (BEAKER) (test code = 20.9 seconds 11.7-14.7 H 759) INR (BEAKER) (test code = 370) 1.8 <=5.9 RECOMMENDED COUMADIN/WARFARIN INR THERAPY RANGESSTANDARD DOSE: 2.0 - 3.0 Includes: PROPHYLAXIS for venous thrombosis, systemic embolization; TREATMENT for venous thrombosis and/or pulmonary embolus.HIGH RISK: Target INR is 2.5-3.5 for patients with mechanical heart valves.HEPATITIS B SURFACE [id number] 14:05:00 Test Item Value Reference Range Interpretation Comments HEPATITIS B SURFACE ANTIBODY < mIU/mL <8.0 (BEAKER) (test code = 647) HEPATITIS B CORE ANTIBODY, [id number] 13:43:00 Test Item Value Reference Range Interpretation Comments HEPATITIS B CORE TOTAL ANTIBODY Nonreactive Nonreactive (BEAKER) (test code = 497) BLOOD GAS, [id number] 13:35:00 Test Item Value Reference Range Interpretation [...] code = 1819) 28.0 % URINALYSIS W/ [id number] 13:16:00 Test Item Value Reference Range Interpretation [...] 1584) SOURCE(BEAKER) (test code = Urine, [place] 8324) VITAMIN D, 41-[id number] 13:14:00 Test Item Value Reference Range Interpretation Comments VITAMIN D 25-OH (BEAKER) (test code = < ng/mL 13.0-47.8 L 2764) ALPHA FETOPROTEIN (AFP), TUMOR [id number] 13:06:00 Test Item Value Reference Range Interpretation Comments ALPHA-FETOPROTEIN (BEAKER) (test code < ng/mL <10.0 = 1094) Effective 05/08/2014: Reference Range ChangeNew: <10.0 Previous: 0.0-8.0 HEMOGLOBIN [id number] 13:05:00 Test Item Value Reference Range Interpretation Comments HEMOGLOBIN A1C (BEAKER) (test code = 7.6 % 4.3-6.1 H 368) CARCINOEMBRYONIC ANTIGEN (CEA)2017-01-03 12:59:00 Test Item Value Reference Range Interpretation Comments CARCINOEMBRYONIC ANTIGEN (BEAKER) 2.0 ng/mL 0.0-5.0 (test code = 685) [id number] 12:59:00 Test Item Value Reference Range Interpretation Comments FERRITIN (BEAKER) (test code = 1841 ng/mL 5-275 H 361) Effective 05/08/2014: Reference Range ChangeNew: Male 5-275 Previous: Male 22- 322 Female 5-275 Female [id number] 12:58:00 Test Item Value Reference Range Interpretation Comments T4 TOTAL (BEAKER) (test code = 895) 4.5 ug/dL 4.9-11.7 L [id number] 12:58:00 Test Item Value Reference Range Interpretation Comments THYROID STIMULATING HORMONE 1.79 uIU/mL 0.35-4.94 (BEAKER) (test code = 772) [id number] 12:58:00 Test Item Value Reference Range Interpretation Comments T3 TOTAL (BEAKER) (test code = 656) 34 ng/dL 48-159 L Effective 05/08/2014: Reference Range ChangeNew: 48-159 Previous: 60-181CALCIUM, [id number] 12:47:00 Test Item Value Reference Range Interpretation Comments CALCIUM IONIZED (BEAKER) (test 1.05 mmol/L 1.12-1.27 L code = 698) PH, BLOOD (BEAKER) (test code = 7.43 1810) [id number] 12:42:00 Test Item Value Reference Range Interpretation [...] % 20-55 (test code = 2590) URIC [id number] 12:40:00 Test Item Value Reference Range Interpretation Comments URIC ACID (BEAKER) (test code = 16.0 mg/dL 2.6-7.2 H 773) Specimen slightly ictericLIPID [id number] 12:40:00 Test Item Value Reference Range Interpretation [...] 160-189 Very High >=190 Specimen slightly ictericBILIRUBIN, [id number] 12:40:00 Test Item Value Reference Range Interpretation Comments BILIRUBIN DIRECT (BEAKER) (test 2.4 mg/dL 0.1-0.5 H code = 706) GAMMA GLUTAMYL TRANSFERASE (GGT)2017-01-03 12:40:00 Test Item Value Reference Range Interpretation Comments GAMMA GLUTAMYL TRANSFERASE (BEAKER) 53 U/L 9-64 (test code = 364) Specimen slightly [id number] 12:39:00 Test Item Value Reference Range Interpretation Comments ETHANOL (MADIE) (test code = 400) < mg/dL <=10 SCREEN, [id number] 12:36:00 Test Item Value Reference Range Interpretation Comments TEST URINE (MADIE) (test Negative code = 583) POCT-GLUCOSE [id number] 12:34:00 Test Item Value Reference Range Interpretation Comments POC-GLUCOSE METER 189 mg/dL 70-[address] [facility] 6720 (MADIE) (test code = [place] 1538) [address] HIV-1 ANTIGEN WITH HIV-1/2 [id number] 11:58:00 Test Item Value Reference Range Interpretation Comments HIV-1 ANTIGEN WITH HIV 1\\T\\2 Nonreactive Nonreactive ANTIBODY (2) (MADIE) (test code = 2586) TROPONIN [id number] 09:44:00 Test Item Value Reference Range Interpretation [...] 0.0-6.6 code = 750) CREATINE KINASE-MB INDEX (MADIE) 1.9 % (test code = 395) Effective 05/08/2014: CK-MB Reference Range ChangeNew: 0.0-6.6 Previous: 0.0-4.9CK-MB Reference Range:<6.7 Normal6.7-10.0 Borderline>10.0 Abnormal ACETAMINOPHEN [id number] 08:31:00 Test Item Value Reference Range Interpretation Comments ACETAMINOPHEN LEVEL (BEAKER) (test < ug/mL 10.0-30.0 L code = 344) TROPONIN [id number] 05:53:00 Test Item Value Reference Range Interpretation [...] acute neurological disease, and persistent tachyarrhythmia.BASIC METABOLIC [id number] 05:53:00 Test Item Value Reference Range Interpretation [...] TO CALCULA TE ESTIMATED GFR. Specimen slightly [id number] 05:52:00 Test Item Value Reference Range Interpretation Comments PHOSPHORUS (BEAKER) (test code = 5.7 mg/dL 2.3-4.7 H 604) HEPATIC FUNCTION [id number] 05:52:00 Test Item Value Reference Range Interpretation [...] Specimen slightly ictericCREATINE KINASE (CK), TOTAL AND [id number] 05:52:00 Test Item Value Reference Range Interpretation Comments CREATINE KINASE TOTAL (BEAKER) 341 U/L 29-200 H (test code = 380) CREATINE KINASE-MB (BEAKER) (test 5.4 ng/mL 0.0-6.6 code = 750) CREATINE KINASE-MB INDEX (BEAKER) 1.6 % (test code = 395) Effective 05/08/2014: CK-MB Reference Range ChangeNew: 0.0-6.6 Previous: 0.0-4.9CK-MB Reference Range:<6.7 Normal6.7-10.0 Borderline>10.0 Abnormal CBC W/PLT COUNT & AUTO [id number] 05:48:00 Test Item Value Reference Range Interpretation [...] K/ L 0.00-0.20 (test code = 417) [id number] 05:09:00 Test Item Value Reference Range Interpretation Comments FIBRINOGEN LEVEL (BEAKER) (test 427 mg/dl 225-434 code = 658) [id number] 05:09:00 Test Item Value Reference Range Interpretation Comments PARTIAL THROMBOPLASTIN TIME 36.2 seconds 22.5-36.0 H (BEAKER) (test code = 760) PROTHROMBIN [id number] 05:08:00 Test Item Value Reference Range Interpretation Comments PROTIME (BEAKER) (test code = 22.8 seconds 11.7-14.7 H 759) INR (BEAKER) (test code = 370) 2.0 <=5.9 RECOMMENDED COUMADIN/WARFARIN INR THERAPY RANGESSTANDARD DOSE: 2.0 - 3.0 Includes: PROPHYLAXIS for venous thrombosis, systemic embolization; TREATMENT for venous thrombosis and/or pulmonary embolus.HIGH RISK: Target INR is 2.5-3.5 for patients with mechanical heart valves.HEPATITIS PANEL, [id number] 03:40:00 Test Item Value Reference Range Interpretation Comments HEPATITIS A IGM ANTIBODY (BEAKER) Nonreactive Nonreactive (test code = 498) HEPATITIS B CORE IGM ANTIBODY Nonreactive Nonreactive (BEAKER) (test code = 645) HEPATITIS C ANTIBODY (BEAKER) Nonreactive Nonreactive (test code = 367) HEPATITIS B SURFACE ANTIGEN (2) Nonreactive Nonreactive (BEAKER) (test code = 2585) CREATININE, RANDOM [id number] 03:18:00 Test Item Value Reference Range Interpretation Comments CREATININE URINE (BEAKER) (test 118.7 mg/dL code = 375) Reference Range: No NormalsSODIUM, RANDOM [id number] 03:18:00 Test Item Value Reference Range Interpretation Comments SODIUM URINE (BEAKER) (test code = 60 meq/L 243) Reference Range: No NormalsUREA NITROGEN, RANDOM [id number] 03:18:00 Test Item Value Reference Range Interpretation Comments UREA NITROGEN URINE (BEAKER) (test 303 mg/dL code = 538) Reference Range: No [id number] 03:07:00 Test Item Value Reference Range Interpretation Comments AMMONIA (BEAKER) (test code = 348) 48 mol/L 18-72 [id number] 02:57:00 Test Item Value Reference Range Interpretation [...] within 95-100% range. URINALYSIS W/ REFLEX URINE [id number] 02:53:00 Test Item Value Reference Range Interpretation [...] /LPF = 514) SOURCE(BEAKER) (test code = 8535) [id number] 02:49:00 Test Item Value Reference Range Interpretation Comments PARTIAL THROMBOPLASTIN TIME 39.4 seconds 22.5-36.0 H (BEAKER) (test code = 760) PROTHROMBIN [id number] 02:48:00 Test Item Value Reference Range Interpretation Comments PROTIME (BEAKER) (test code = 22.0 seconds 11.7-14.7 H 759) INR (BEAKER) (test code = 370) 1.9 <=5.9 RECOMMENDED COUMADIN/WARFARIN INR THERAPY RANGESSTANDARD DOSE: 2.0 - 3.0 Includes: PROPHYLAXIS for venous thrombosis, systemic embolization; TREATMENT for venous thrombosis and/or pulmonary embolus.HIGH RISK: Target INR is 2.5-3.5 for patients with mechanical heart valves.[id number] 02:48:00 Test Item Value Reference Range Interpretation Comments FIBRINOGEN LEVEL (BEAKER) (test 421 mg/dl 225-434 code = 658) BLOOD GAS, [id number] 02:43:00 Test Item Value Reference Range Interpretation [...] 21.0 % CBC W/PLT COUNT & AUTO GZNJHSUEEGUU9222-77-30 02:43:00 Test Item Value Reference Range Interpretation [...] code = 417) 0.00LACTIC ACID, VENOUS, WHOLE [id number] 02:35:00 Test Item Value Reference Range Interpretation Comments LACTATE BLOOD VENOUS (2) (BEAKER) 0.8 mmol/L 0.5-2.2 (test code = 2872) Effective 10/23/2015: Units/Reference Range ChangeNew: 0.5-2.2 mmol/L Previous: 5- 20 mg/dLSpecimen slightly vakdiatACFQGGCNODDV5768-85-30 11:32:00 Test Item Value Reference Range Interpretation Comments AGAP (test code = AGAP) 14.6 10.0-20.0 [facility] CenterEioafifHNUVKSBKZKKF7926-85-94 11:32:00 Test Item Value Reference Range Interpretation Comments eGFR (test code = eGFR) 33 [facility]KSLSYEFNOYUE8619-[facility] 11:32:00 Test Item Value Reference Range Interpretation Comments Calcium Lvl (test code = Calcium Lvl) 8.3 8.5-10.5 [facility] CenterFdrqoazMTAIUJXDLMEU0008-33-49 11:32:00 Test Item Value Reference Range Interpretation Comments Glucose Lvl (test code = Glucose Lvl) 81 70-99 [facility]RektginPQXMNDVWJWNY0809-99-23 11:32:00 Test Item Value Reference Range Interpretation Comments Creatinine Lvl (test code = Creatinine 1.95 0.50-1.40 Lvl) [facility] HospitalYvomruhMOQOAZIJCCOU1356-26-58 11:32:00 Test Item Value Reference Range Interpretation Comments BUN (test code = BUN) 55 7-22 [facility] HospitalMttavhaQQYNDZTSRLTP1120-40-36 11:32:00 Test Item Value Reference Range Interpretation Comments CO2 (test code = CO2) 19 24-32 [facility] HospitalBwktxbgGKQFMPEWXDJS1918-52-95 11:32:00 Test Item Value Reference Range Interpretation Comments Chloride Lvl (test code = Chloride Lvl) 110 95-109 [facility] HospitalVxhevfhMGPYEXEJVPCY6566-53-52 11:32:00 Test Item Value Reference Range Interpretation Comments Sodium Lvl (test code = Sodium Lvl) 139 135-145 [facility] HospitalJsafyzdLVDXBMTEJGPG3962-95-81 11:32:00 Test Item Value Reference Range Interpretation Comments Potassium Lvl (test code = Potassium 4.6 3.5-5.1 Lvl) [facility]GjylwkqBJGPIMYCJK4845-29-43 11:32:00 Test Item Value Reference Range Interpretation Comments Lymphocytes (test code = Lymphocytes) 30.4 20.0-40.0 [facility] CenterWzpmmprWICPCFPCWQ6443-13-49 11:32:00 Test Item Value Reference Range Interpretation Comments Eosinophils (test code = 4.5 See_Comment [A utomated message] The Eosinophils) system which ge nerated this result tra nsmitted reference range : <=4.0. The reference r leo was not used to int erpret this result as normal/abnormal . [facility] CenterCwsetikQELFEUWNON8686-50-82 11:32:00 Test Item Value Reference Range Interpretation Comments Monocytes (test code = Monocytes) 13.7 2.0-12.0 [facility] CenterXjvxkfnQAVEAIIJNB9929-70-92 11:32:00 Test Item Value Reference Range Interpretation Comments Segs-Bands # (test code = Segs-Bands #) 2.6 1.5-8.1 [facility] CenterEuwouhuWXMEYMOIQJ0723-34-68 11:32:00 Test Item Value Reference Range Interpretation Comments Basophils (test code = 0.7 See_Comment [Aut omated message] The Basophils) system which ge nerated this result tra nsmitted reference range : <=1.0. The reference r leo was not used to int erpret this result as normal/abnormal . [facility] CenterOwogdiiHUPGTTUROU9198-07-86 11:32:00 Test Item Value Reference Range Interpretation Comments Monocytes # (test code 0.7 See_Comment [Aut omated message] The = Monocytes #) system which generated this result tra nsmitted reference range : <=0.8. The reference r leo was not used to int erpret this result as normal/abnormal . [facility] CenterMkyfolxFZHINYUASM0453-89-65 11:32:00 Test Item Value Reference Range Interpretation Comments Lymphocytes # (test code = Lymphocytes 1.6 1.0-5.5 #) [facility] CenterSaaljtjCFJNEKTOFP0061-70-82 11:32:00 Test Item Value Reference Range Interpretation Comments Eosinophils # (test code 0.2 See_Comment [A utomated message] The = Eosinophils #) system whic h generated this result tra nsmitted reference range : <=0.5. The reference r leo was not used to int erpret this result as normal/abnormal . [facility] CenterHhktnvuXLNXZHXCFS3155-95-49 11:32:00 Test Item Value Reference Range Interpretation Comments Segs (test code = Segs) 50.7 45.0-75.0 [facility] CenterPozzsfnCVPOUKWYVP6975-57-34 11:32:00 Test Item Value Reference Range Interpretation [...] iron deficiency anemia, and renal disease. CPT: 16580 [facility] CenterAwraoqvQNATGDEHIZ5930-03-84 11:32:00 Test Item Value Reference Range Interpretation Comments Hct (test code = Hct) 28.1 36.0-48.0 [facility] CenterXmmfubsFRVLLXSGGJ0316-95-25 11:32:00 Test Item Value Reference Range Interpretation Comments RBC (test code = RBC) 3.39 4.20-5.40 [facility] CenterDttykfrUXJTYURYCG2539-05-01 11:32:00 Test Item Value Reference Range Interpretation Comments Hgb (test code = Hgb) 8.9 12.0-16.0 [facility] CenterZwwopuoYYGZAORDOK7688-01-53 11:32:00 Test Item Value Reference Range Interpretation Comments WBC (test code = WBC) 5.1 3.7-10.4 [facility] CenterBxdxkawMVSFBFYAVE6893-58-68 11:32:00 Test Item Value Reference Range Interpretation Comments MPV (test code = MPV) 11.3 7.4-10.4 [facility] CenterNmyslcoCIDOETQFEW9224-55-72 11:32:00 Test Item Value Reference Range Interpretation Comments Platelet (test code = Platelet) 118 133-450 [facility] CenterFrowavyBANFLDUGIV5944-05-60 11:32:00 Test Item Value Reference Range Interpretation Comments MCHC (test code = MCHC) 31.8 32.0-36.0 [facility] CenterJcpzdpvQOWWKGKDNF7730-87-31 11:32:00 Test Item Value Reference Range Interpretation Comments RDW (test code = RDW) 18.0 11.5-14.5 [facility] CenterKqpwwqeGTOKXIDJYY1279-54-71 11:32:00 Test Item Value Reference Range Interpretation Comments MCV (test code = MCV) 83.0 80.0-98.0 [facility] CenterXufazjrEFDSXAXVWT3794-71-66 11:32:00 Test Item Value Reference Range Interpretation Comments MCH (test code = MCH) 26.4 pg 27.0-31.0 [facility] CenterBrnznuzVGTTQLIDIX7840-65-35 11:32:00 Test Item Value Reference Range Interpretation Comments C3 Complement (test code = C3 137 88-201 Complement) [facility] CenterNksizbeVAIOEOSDGS2913-25-42 11:32:00 Test Item Value Reference Range Interpretation Comments HIV. (test code = Negative *NA*(07/30/16 HIV.) 5:32 AM) [facility] CenterLsvbxlbLZUVEFJSND9693-09-90 11:05:00 Test Item Value Reference Range Interpretation [...] iron deficiency anemia, and renal disease. CPT: 83701 [facility] CenterLdsnbwbBEHHJTRSMU3261-40-46 11:05:00 Test Item Value Reference Range Interpretation Comments HIV. (test code = Negative *NA*(07/29/16 HIV.) 5:05 AM) [facility] CenterPmegxjcKFAZYVBIVC9738-20-81 11:05:00 Test Item Value Reference Range Interpretation Comments C3 Complement (test code = C3 92 88-201 Complement) [facility]2017-02-07 15:50:00 Test Item Value Reference Range Interpretation Comments eGFR (test code = eGFR) 25 [facility]2017-02-07 15:50:00 Test Item Value Reference Range Interpretation Comments BUN (test code = BUN) 55 7-22 [facility]2017-02-07 15:50:00 Test Item Value Reference Range Interpretation Comments CO2 (test code = CO2) 23 24-32 [facility]2017-02-07 15:50:00 Test Item Value Reference Range Interpretation Comments Chloride Lvl (test code = Chloride Lvl) 109 95-109 [facility]2017-02-07 15:50:00 Test Item Value Reference Range Interpretation Comments Glucose Lvl (test code = Glucose Lvl) 101 70-99 [facility]2017-02-07 15:50:00 Test Item Value Reference Range Interpretation Comments Potassium Lvl (test code = Potassium 4.0 3.5-5.1 Lvl) [facility]2017-02-07 15:50:00 Test Item Value Reference Range Interpretation Comments Sodium Lvl (test code = Sodium Lvl) 141 135-145 [facility]2017-02-07 15:50:00 Test Item Value Reference Range Interpretation Comments AGAP (test code = AGAP) 13.0 10.0-20.0 [facility]2017-02-07 15:50:00 Test Item Value Reference Range Interpretation Comments Calcium Lvl (test code = Calcium Lvl) 7.7 8.5-10.5 [facility]2017-02-07 15:50:00 Test Item Value Reference Range Interpretation Comments Creatinine Lvl (test code = Creatinine 2.49 0.50-1.40 Lvl) [facility] CenterEahwwugBJPVTTSGPW1585-15-50 15:50:00 Test Item Value Reference Range Interpretation Comments PT (test code = PT) 14.8 s 12.0-14.7 [facility] CenterDztgsvfFQEIBPDHCM4901-22-49 15:50:00 Test Item Value Reference Range Interpretation Comments PTT (test code = PTT) 40.8 s 22.9-35.8 [facility] CenterPdkxhwgAQZFFZNUBC9692-56-29 15:50:00 Test Item Value Reference Range Interpretation Comments INR (test code = INR) 1.14 0.85-1.17 [facility]UagzspiUDFZBCYEXT9680-25-10 15:50:00 Test Item Value Reference Range Interpretation Comments C3 Complement (test code = C3 94 88-201 Complement) [facility] CenterHvznozeIQBXJVBNXO9368-68-73 10:35:00 Test Item Value Reference Range Interpretation Comments Lymphocytes # (test code = Lymphocytes 1.7 1.0-5.5 #) [facility] CenterQkgqbtlDKORATREHL2689-85-04 10:35:00 Test Item Value Reference Range Interpretation Comments Segs-Bands # (test code = Segs-Bands #) 2.7 1.5-8.1 [facility] CenterAmwalqgSPVXRMIMVT4123-36-45 10:35:00 Test Item Value Reference Range Interpretation Comments Eosinophils # (test code 0.1 See_Comment [A utomated message] The = Eosinophils #) system whic h generated this result tra nsmitted reference range : <=0.5. The reference r leo was not used to int erpret this result as normal/abnormal . [facility] CenterAkmxdxuTMZYBBVEOQ4397-35-73 10:35:00 Test Item Value Reference Range Interpretation Comments Monocytes # (test code 0.7 See_Comment [Aut omated message] The = Monocytes #) system which generated this result tra nsmitted reference range : <=0.8. The reference r leo was not used to int erpret this result as normal/abnormal . [facility] CenterHodsizfKYQSIYMSEP4590-12-57 10:35:00 Test Item Value Reference Range Interpretation Comments Segs (test code = Segs) 51.3 45.0-75.0 [facility] CenterLjmaxptJIBSDZLKEL2159-85-95 10:35:00 Test Item Value Reference Range Interpretation Comments Lymphocytes (test code = Lymphocytes) 31.6 20.0-40.0 [facility] CenterPxojgriHBPBSUZWIX7122-00-76 10:35:00 Test Item Value Reference Range Interpretation Comments Monocytes (test code = Monocytes) 14.1 2.0-12.0 [facility] CenterYimwxohHGHWSTQIOM6604-43-01 10:35:00 Test Item Value Reference Range Interpretation Comments Eosinophils (test code = 2.6 See_Comment [A utomated message] The Eosinophils) system which ge nerated this result tra nsmitted reference range : <=4.0. The reference r leo was not used to int erpret this result as normal/abnormal . [facility] CenterGwnginzOZODXHFRUL3012-64-73 10:35:00 Test Item Value Reference Range Interpretation Comments Basophils (test code = 0.4 See_Comment [Aut omated message] The Basophils) system which ge nerated this result tra nsmitted reference range : <=1.0. The reference r leo was not used to int erpret this result as normal/abnormal . [facility] CenterIyjecadOVMBFMZVFK4837-26-34 10:35:00 Test Item Value Reference Range Interpretation Comments PB Smear Path Peripheral blood smear shows (test code = PB hypochromic normocytic Smear Path) anemia with anisopoikilocytsosis, no increase in schistocytes, slight polychromasia, a few estella cells, moderate thrombocytopenia. Impression: (1) no evidence of microangiopathic hemolysis, (2) RBC morphology is suggestive of anemia of chronic disease or iron deficiency anemia, and renal disease. CPT: 91764 [facility] CenterSeukogtHCBEYTTNZN1627-49-33 10:35:00 Test Item Value Reference Range Interpretation Comments Hct (test code = Hct) 29.3 36.0-48.0 [facility] CenterEkxumyeROXVXUHZIV4640-38-16 10:35:00 Test Item Value Reference Range Interpretation Comments Hgb (test code = Hgb) 9.2 12.0-16.0 [facility] CenterWgdijwbJVUYKUIOFL4711-58-02 10:35:00 Test Item Value Reference Range Interpretation Comments RBC (test code = RBC) 3.54 4.20-5.40 [facility] CenterExvvxikPILSYEELEM8286-87-06 10:35:00 Test Item Value Reference Range Interpretation Comments WBC (test code = WBC) 5.3 3.7-10.4 [facility] CenterRgphaffHGQQORZPSV7640-21-20 10:35:00 Test Item Value Reference Range Interpretation Comments Platelet (test code = Platelet) 87 133-450 [facility] HospitalUddbafkETXORBBZVQ5207-52-90 10:35:00 Test Item Value Reference Range Interpretation Comments MCHC (test code = MCHC) 31.4 32.0-36.0 [facility] HospitalQsxkfghPHOIVZVMYL6281-66-43 10:35:00 Test Item Value Reference Range Interpretation Comments RDW (test code = RDW) 17.9 11.5-14.5 [facility] HospitalWbjnhvzEPYYRYVFVH2439-74-30 10:35:00 Test Item Value Reference Range Interpretation Comments MPV (test code = MPV) 10.9 7.4-10.4 [facility] HospitalZbdcqkyGGNAZFFZVI0450-81-46 10:35:00 Test Item Value Reference Range Interpretation Comments MCH (test code = MCH) 26.0 pg 27.0-31.0 [facility] HospitalTqjlpirGMAZAVVUUG4612-48-98 10:35:00 Test Item Value Reference Range Interpretation Comments MCV (test code = MCV) 82.8 80.0-98.0 [facility] CenterSkkytrfHYWEZOYBTL2196-35-19 10:35:00 Test Item Value Reference Range Interpretation Comments HIV. (test code = Negative *NA*(07/28/16 HIV.) 4:35 AM) [facility] HospitalCARDIAC YYXQRKH5848-19-72 10:22:00 Test Item Value Reference Range Interpretation Comments Total CK (test code = Total CK) 190 12-191 [facility] HospitalCHEM XGTEX0071-16-94 10:22:00 Test Item Value Reference Range Interpretation Comments Calcium Lvl (test code = Calcium Lvl) 7.8 8.5-10.5 [facility] CenterannIdea Village GPXZL8576-29-63 10:22:00 Test Item Value Reference Range Interpretation Comments CO2 (test code = CO2) 21 24-32 [facility] HospitalCHEM OSIMZ6267-98-39 10:22:00 Test Item Value Reference Range Interpretation Comments Sodium Lvl (test code = Sodium Lvl) 140 135-145 [facility] CenterTaboola IMBTX3082-24-24 10:22:00 Test Item Value Reference Range Interpretation Comments Potassium Lvl (test code = Potassium 3.8 3.5-5.1 Lvl) [facility] HospitalIdea [facility] MYJAX0084-16-01 10:22:00 Test Item Value Reference Range Interpretation Comments Chloride Lvl (test code = Chloride Lvl) 106 95-109 [facility] CenterannCRAWLEY MEMORIAL HOSPITALSGYIU6642-88-66 10:22:00 Test Item Value Reference Range Interpretation Comments Bili Total (test code = Bili Total) 0.4 0.2-1.3 [facility]2017-02-06 10:22:00 Test Item Value Reference Range Interpretation Comments Alk Phos (test code = Alk Phos) 74 39-136 [facility]2017-02-06 10:22:00 Test Item Value Reference Range Interpretation Comments eGFR (test code = eGFR) 19 [facility]2017-02-06 10:22:00 Test Item Value Reference Range Interpretation Comments Total Protein (test code = Total 5.2 6.4-8.4 Protein) [facility]2017-02-06 10:22:00 Test Item Value Reference Range Interpretation Comments ALT (test code = ALT) 822 See_Comment [Auto mated message] The system which ge nerated this result transmit rohit reference range : <=65. The reference range was not used to interpr et this result as reji l/abnormal. [facility]2017-02-06 10:22:00 Test Item Value Reference Range Interpretation Comments AST (test code = AST) 205 See_Comment [Auto mated message] The system which ge nerated this result transmit rohit reference range : <=37. The reference range was not used to interpr et this result as reji l/abnormal. [facility]2017-02-06 10:22:00 Test Item Value Reference Range Interpretation Comments Albumin Lvl (test code = Albumin Lvl) 1.8 3.5-5.0 [facility]2017-02-06 10:22:00 Test Item Value Reference Range Interpretation Comments BUN (test code = BUN) 54 7-22 [facility]2017-02-06 10:22:00 Test Item Value Reference Range Interpretation Comments Glucose Lvl (test code = Glucose Lvl) 143 70-99 [facility]2017-02-06 10:22:00 Test Item Value Reference Range Interpretation Comments Creatinine Lvl (test code = Creatinine 3.11 0.50-1.40 Lvl) [facility]2017-02-06 10:22:00 Test Item Value Reference Range Interpretation Comments B/C Ratio (test code = B/C Ratio) 17 6-25 [place] 186867-02-06 10:22:00 Test Item Value Reference Range Interpretation Comments AGAP (test code = AGAP) 16.8 10.0-20.0 [facility]2017-02-06 10:22:00 Test Item Value Reference Range Interpretation Comments Globulin (test code = Globulin) 3.4 2.7-4.2 [facility]2017-02-06 10:22:00 Test Item Value Reference Range Interpretation Comments A/G Ratio (test code = A/G Ratio) 0.5 0.7-1.6 [facility]2017-02-06 10:22:00 Test Item Value Reference Range Interpretation Comments Magnesium Lvl (test code = Magnesium 2.0 1.8-2.4 Lvl) [facility]2017-02-06 10:22:00 Test Item Value Reference Range Interpretation Comments Phosphorus (test code = Phosphorus) 3.7 2.5-4.5 [facility] CenterHrrcxyyAQJVKNNWKX7220-39-22 10:22:00 Test Item Value Reference Range Interpretation Comments RDW (test code = RDW) 17.7 11.5-14.5 [facility] CenterXaastgeBUJXTRKQDS7624-31-58 10:22:00 Test Item Value Reference Range Interpretation Comments MCHC (test code = MCHC) 32.9 32.0-36.0 [facility] CenterVbjgydbQZRNGFDVSQ0643-63-23 10:22:00 Test Item Value Reference Range Interpretation Comments Hct (test code = Hct) 25.4 36.0-48.0 [facility] CenterOmgaahwFXDKOLSDCI2175-15-97 10:22:00 Test Item Value Reference Range Interpretation Comments MCH (test code = MCH) 26.4 pg 27.0-31.0 [facility] CenterWrbecfxUPVHBGMTEK7839-08-73 10:22:00 Test Item Value Reference Range Interpretation Comments MCV (test code = MCV) 80.3 80.0-98.0 [facility] CenterRdgouevWJCJZRGHCW8613-16-54 10:22:00 Test Item Value Reference Range Interpretation Comments MPV (test code = MPV) 11.4 7.4-10.4 [facility] CenterFizdpylOIGETPTTSK5713-61-12 10:22:00 Test Item Value Reference Range Interpretation Comments Platelet (test code = Platelet) 74 133-450 [facility] CenterZgsszpdIVACPRCJYY2681-12-27 10:22:00 Test Item Value Reference Range Interpretation Comments RBC (test code = RBC) 3.16 4.20-5.40 [facility] CenterUhnxmaqONWNRCAXAH5644-87-79 10:22:00 Test Item Value Reference Range Interpretation Comments WBC (test code = WBC) 5.3 3.7-10.4 [facility] CenterXkpfrudTYWRBTIAHO0995-29-82 10:22:00 Test Item Value Reference Range Interpretation Comments Hgb (test code = Hgb) 8.4 12.0-16.0 [facility] CenterIcmqteiZLWALYSKGM7205-57-90 10:22:00 Test Item Value Reference Range Interpretation Comments Monocytes (test code = Monocytes) 14.5 2.0-12.0 [facility] CenterWxoqjtpJZGVHUZDMB2699-59-24 10:22:00 Test Item Value Reference Range Interpretation Comments Lymphocytes (test code = Lymphocytes) 29.8 20.0-40.0 [facility] CenterFghknemMZVEGMQGLV7415-96-67 10:22:00 Test Item Value Reference Range Interpretation Comments Eosinophils # (test code 0.1 See_Comment [A utomated message] The = Eosinophils #) system whic h generated this result tra nsmitted reference range : <=0.5. The reference r leo was not used to int erpret this result as normal/abnormal . [facility] CenterKbehexuKELXCWACUT2028-55-88 10:22:00 Test Item Value Reference Range Interpretation Comments Monocytes # (test code 0.8 See_Comment [Aut omated message] The = Monocytes #) system which generated this result tra nsmitted reference range : <=0.8. The reference r leo was not used to int erpret this result as normal/abnormal . [facility] CenterUzfpwcrIGGZADIBYE2224-91-59 10:22:00 Test Item Value Reference Range Interpretation Comments Segs-Bands # (test code = Segs-Bands #) 2.9 1.5-8.1 [facility] CenterKvlrwwsXJOXDKENEE3407-77-34 10:22:00 Test Item Value Reference Range Interpretation Comments Lymphocytes # (test code = Lymphocytes 1.6 1.0-5.5 #) [facility] CenterZgneeefGXCRXFGSQN8600-93-40 10:22:00 Test Item Value Reference Range Interpretation Comments Basophils (test code = 0.4 See_Comment [Aut omated message] The Basophils) system which ge nerated this result tra nsmitted reference range : <=1.0. The reference r leo was not used to int erpret this result as normal/abnormal . [facility] HospitalCblaivcFDRKMZPKFV1931-44-91 10:22:00 Test Item Value Reference Range Interpretation Comments Eosinophils (test code = 1.2 See_Comment [A utomated message] The Eosinophils) system which ge nerated this result tra nsmitted reference range : <=4.0. The reference r leo was not used to int erpret this result as normal/abnormal . [facility] CenterEnaliejIDAWOLAOTT2714-36-64 10:22:00 Test Item Value Reference Range Interpretation Comments Segs (test code = Segs) 54.1 45.0-75.0 [facility] HospitalSPECIAL JNKMGTISF7650-62-25 10:22:00 Test Item Value Reference Range Interpretation Comments Hgb A1C (test code = Hgb A1C) 8.9 [facility] HospitalCARDIAC MJWAUID1733-75-31 17:40:00 Test Item Value Reference Range Interpretation Comments Total CK (test code = Total CK) 344 12-191 [facility] CenterXjodkxdWMPJXIGZJZ6347-00-86 17:40:00 Test Item Value Reference Range Interpretation Comments IVETTE (test code = IVETTE) Positive *ABN*(07/26/16 11:40 AM) [facility] CenterIltstkoWGBBGSLNRN4173-93-73 17:40:00 Test Item Value Reference Range Interpretation Comments SERVICE TRAINER Ab (test code = SERVICE TRAINER Ab) no [facility] CenterUklzsiyDSJLMFWLBK2421-79-19 17:40:00 Test Item Value Reference Range Interpretation Comments Sm Ab (test code = Sm Ab) no [facility] CenterMujmiztUORJSFTVXI6912-11-78 17:40:00 Test Item Value Reference Range Interpretation Comments IVETTE Interp (test code Pattern appears = IVETTE Interp) Nucleolar. [facility] CenterFatylyqANKJDOYQPG0119-66-71 17:40:00 Test Item Value Reference Range Interpretation Comments SS-B (La) Ab (test code = SS-B (La) Ab) no [facility] CenterVbaqmpdUVWLMGMSIK2692-93-65 17:40:00 Test Item Value Reference Range Interpretation Comments SS-A (Ro) Ab (test code = SS-A (Ro) Ab) no [facility] CenterPyemyngZJGIJXNQCB1568-82-63 17:40:00 Test Item Value Reference Range Interpretation Comments DNA Ab (DS) (test Negative (07/26/16 11:40 code = DNA Ab (DS)) AM) [facility]ihajLDSUATSGBI0665-04-67 17:40:00 Test Item Value Reference Range Interpretation Comments IVETTE Titer (test code = 1:40 *ABN*(07/26/16 IVETTE Titer) 11:40 AM) [facility] [id number] 17:40:00 Test Item Value Reference Range Interpretation Comments U Sodium (test code = U Sodium) 21 [facility] HospitalKkcxwsbDLPHOXWUPB7742-73-11 14:00:00 Test Item Value Reference Range Interpretation Comments INR (test code = INR) 1.11 0.85-1.17 [facility] HospitalPhnjxneELFTQNNYCY2661-38-38 14:00:00 Test Item Value Reference Range Interpretation Comments PT (test code = PT) 14.5 s 12.0-14.7 [facility] HospitalTqpoorkJVTTEOYMSZ3220-76-30 14:00:00 Test Item Value Reference Range Interpretation Comments Hep A IgM (test code Negative *NA*(07/26/16 = Hep A IgM) 8:00 AM) [facility] CenterYvniuqiERJFPSMXII0995-07-59 14:00:00 Test Item Value Reference Range Interpretation Comments Hep B Core IgM (test Negative *NA*(07/26/16 code = Hep B Core 8:00 AM) IgM) [facility] CenterQwbrgiyYLWFUZKQIT3704-01-44 14:00:00 Test Item Value Reference Range Interpretation Comments Hep C Ab (test code = Negative *NA*(07/26/16 Hep C Ab) 8:00 AM) [facility] CenterUamgxzzGXQOJWMMWJ6551-14-06 14:00:00 Test Item Value Reference Range Interpretation Comments Hep Bs Ag (test code Negative *NA*(07/26/16 = Hep Bs Ag) 8:00 AM) [facility] CenterannCHEM [id number] 10:42:00 Test Item Value Reference Range Interpretation Comments B/C Ratio (test code = B/C Ratio) 17 6-25 [facility]annCHEM [id number] 10:42:00 Test Item Value Reference Range Interpretation Comments ALT (test code = ALT) 1232 See_Comment [Auto mated message] The system which ge nerated this result transmit rohit reference range : <=65. The reference range was not used to interpr et this result as reji l/abnormal. [facility]2017-02-05 10:42:00 Test Item Value Reference Range Interpretation Comments A/G Ratio (test code = A/G Ratio) 0.5 0.7-1.6 [facility]2017-02-05 10:42:00 Test Item Value Reference Range Interpretation Comments Bili Total (test code = Bili Total) 0.3 0.2-1.3 [facility]2017-02-05 10:42:00 Test Item Value Reference Range Interpretation Comments Alk Phos (test code = Alk Phos) 79 39-136 [facility]2017-02-05 10:42:00 Test Item Value Reference Range Interpretation Comments AST (test code = AST) 586 See_Comment [Auto mated message] The system which ge nerated this result transmit rohit reference range : <=37. The reference range was not used to interpr et this result as reji l/abnormal. [facility]2017-02-05 10:42:00 Test Item Value Reference Range Interpretation Comments Total Protein (test code = Total 5.5 6.4-8.4 Protein) [facility]2017-02-05 10:42:00 Test Item Value Reference Range Interpretation Comments Globulin (test code = Globulin) 3.7 2.7-4.2 [facility]2017-02-05 10:42:00 Test Item Value Reference Range Interpretation Comments Albumin Lvl (test code = Albumin Lvl) 1.8 3.5-5.0 [facility]2017-02-05 10:42:00 Test Item Value Reference Range Interpretation Comments Magnesium Lvl (test code = Magnesium 2.1 1.8-2.4 Lvl) [facility]UdrubvcROYOVCZYQT2737-11-59 10:42:00 Test Item Value Reference Range Interpretation Comments Acanthocyte (test code = Acanthocyte) Slight [facility] CenterNiqkroiYISJGBNVGN7208-04-42 10:42:00 Test Item Value Reference Range Interpretation Comments Rouleaux (test code = Present *ABN*(07/26/16 Rouleaux) 4:42 AM) [facility] CenterZjbsuxcKRVQCFLUOS9376-65-54 10:42:00 Test Item Value Reference Range Interpretation Comments Anisocyte (test code = 1+ *ABN*(07/26/16 4:42 Anisocyte) AM) [place] [id number] 10:42:00 Test Item Value Reference Range Interpretation Comments Basophils # (test code 0.1 See_Comment [Aut omated message] The = Basophils #) system which generated this result tra nsmitted reference range : <=0.2. The reference r leo was not used to int erpret this result as normal/abnormal . [facility]boXLCDSKBAAH8209-[facility]-50 10:42:00 Test Item Value Reference Range Interpretation Comments Large Plt (test code Moderate *ABN*(07/26/16 = Large Plt) 4:42 AM) [facility] HospitalPhdhpkyCGLDRKWNFY8439-21-39 10:42:00 Test Item Value Reference Range Interpretation Comments C4 Complement (test code = C4 42 16-47 Complement) [facility] AND [id number] 16:34:00 Test Item Value Reference Range Interpretation Comments UA Sq Epi (test code = UA Sq Epi) None Seen [facility] AND [id number] 16:34:00 Test Item Value Reference Range Interpretation Comments UA Waxy Cast (test code = UA Waxy Cast) 1 [facility] AND [id number] 16:34:00 Test Item Value Reference Range Interpretation Comments UA Hyal Cast (test 4 See_Comment [Automat ed message] The code = UA Hyal Cast) system which generated this result transmit rohit reference range : <=2. The reference range was not used to interpr et this result as reji l/abnormal. [facility] AND [id number] 16:34:00 Test Item Value Reference Range Interpretation Comments UA Bacteria (test code = UA Occasional /HPF Bacteria) [facility] AND [id number] 16:34:00 Test Item Value Reference Range Interpretation Comments UA Mucus (test code = UA Mucus) Few /LPF [facility] AND [id number] 16:34:00 Test Item Value Reference Range Interpretation Comments UA Amorph Destiny (test code = Occasional /HPF UA Amorph Destiny) [facility] AND [id number] 16:34:00 Test Item Value Reference Range Interpretation Comments UA Leuk Est (test Negative (07/25/16 10:34 code = UA Leuk Est) AM) [facility] AND [id number] 16:34:00 Test Item Value Reference Range Interpretation Comments UA Nitrite (test code Negative (07/25/16 10:34 = UA Nitrite) AM) [facility] AND [id number] 16:34:00 Test Item Value Reference Range Interpretation Comments UA RBC (test code = 2 See_Comment [Automa rohit message] The UA RBC) system which ge nerated this result transmit rohit reference range : <=2. The reference range was not used to interpr et this result as reji l/abnormal. [facility] AND [id number] 16:34:00 Test Item Value Reference Range Interpretation Comments UA WBC (test code = 6 See_Comment [Automa rohit message] The UA WBC) system which ge nerated this result transmit rohit reference range : <=5. The reference range was not used to interpr et this result as reji l/abnormal. [facility] AND [id number] 16:34:00 Test Item Value Reference Range Interpretation Comments UA Urobilinogen (test code = UA 2.0 0.1-1.0 Urobilinogen) [facility] AND [id number] 16:34:00 Test Item Value Reference Range Interpretation Comments UA Ketones (test code = UA Negative mg/dL Ketones) [facility] AND [id number] 16:34:00 Test Item Value Reference Range Interpretation Comments UA Glucose (test code = UA Glucose) 70 mg/dL [facility] AND [id number] 16:34:00 Test Item Value Reference Range Interpretation Comments UA Blood (test code = Negative (07/25/16 10:34 UA Blood) AM) [facility] AND [id number] 16:34:00 Test Item Value Reference Range Interpretation Comments UA Bili (test code = Negative *NA*(07/25/16 UA Bili) 10:34 AM) [facility] AND [id number] 16:34:00 Test Item Value Reference Range Interpretation Comments UA Protein (test code = UA >=300 mg/dL Protein) [facility] AND [id number] 16:34:00 Test Item Value Reference Range Interpretation Comments UA Spec Grav (test code = UA Spec Grav) 1.012 [facility] AND [id number] 16:34:00 Test Item Value Reference Range Interpretation Comments UA pH (test code = UA pH) 5.5 5.0-8.0 [facility] AND [id number] 16:34:00 Test Item Value Reference Range Interpretation Comments UA Turbidity (test code Slight *ABN*(07/25/16 = UA Turbidity) 10:34 AM) [facility] AND [id number] 16:34:00 Test Item Value Reference Range Interpretation Comments UA Color (test code = Dark Yellow *NA*(07/25/16 UA Color) 10:34 AM) [facility] AND [id number] 16:34:00 Test Item Value Reference Range Interpretation Comments UA Gran Cast (test code = UA Gran Cast) 9 [facility] [id number] 16:34:00 Test Item Value Reference Range Interpretation Comments U Sodium (test code = U Sodium) 30 [facility] [id number] 16:34:00 Test Item Value Reference Range Interpretation Comments U Prot/Creat (test code = U Prot/Creat) 3.1 [facility] [id number] 16:34:00 Test Item Value Reference Range Interpretation Comments U Protein (test code = U Protein) 420.9 [facility] [id number] 16:34:00 Test Item Value Reference Range Interpretation Comments U Creatinine (test code = U 136.00 Creatinine) [facility] [id number] 08:55:00 Test Item Value Reference Range Interpretation Comments Magnesium Lvl (test code = Magnesium 2.0 1.8-2.4 Lvl) [facility] [id number] 08:55:00 Test Item Value Reference Range Interpretation Comments Phosphorus (test code = Phosphorus) 5.2 2.5-4.5 [facility]annCARDIAC [id number] 17:29:00 Test Item Value Reference Range Interpretation Comments Troponin-I (test code 0.28 See_Comment [Auto mated message] The = Troponin-I) system which g enerated this result transmit rohit reference range : <=0.40. The reference r leo was not used to interpr et this result as reji l/abnormal. [facility]annCARDIAC [id number] 17:29:00 Test Item Value Reference Range Interpretation Comments Total CK (test code = Total CK) 2616 12-191 [facility] CenterSnap[facility]2017[facility] 17:29:00 Test Item Value Reference Range Interpretation Comments Troponin-T (test code 0.144 See_Comment [Auto mated message] The = Troponin-T) system which g enerated this result transmit rohit reference range : <=0.100. The reference r leo was not used to interpr et this result as reji l/abnormal. [facility] 17:29:00 Test Item Value Reference Range Interpretation Comments CK MB Index (test 0.2 See_Comment [Automate d message] The code = CK MB Index) system w [facility] generated this result transmit rohit reference range : <=2.5. The reference range was not used to interpr et this result as reji l/abnormal. [facility] [employer]2017-02-03 17:29:00 Test Item Value Reference Range Interpretation Comments CK MB (test code = CK MB) 6.3 0.5-3.6 [facility] 11:20:00 Test Item Value Reference Range Interpretation Comments Troponin-I (test code 0.38 See_Comment [Auto mated message] The = Troponin-I) system which g enerated this result transmit rohit reference range : <=0.40. The reference r leo was not used to interpr et this result as reji l/abnormal. [facility] [employer]2017-02-03 11:20:00 Test Item Value Reference Range Interpretation Comments Troponin-T (test code 0.173 See_Comment [Auto mated message] The = Troponin-T) system which g enerated this result transmit rohit reference range : <=0.100. The reference r leo was not used to interpr et this result as reji l/abnormal. [facility] [employer]2017-02-03 11:20:00 Test Item Value Reference Range Interpretation Comments CK MB Index (test 0.2 See_Comment [Automate d message] The code = CK MB Index) system w [facility] generated this result transmit rohit reference range : <=2.5. The reference range was not used to interpr et this result as reji l/abnormal. [facility] [employer]2017-02-03 11:20:00 Test Item Value Reference Range Interpretation Comments CK MB (test code = CK MB) 5.6 0.5-3.6 [facility] [employer] [id number] 11:20:00 Test Item Value Reference Range Interpretation Comments Phosphorus (test code = Phosphorus) 5.5 2.5-4.5 [facility] [employer] [id number] 06:18:00 Test Item Value Reference Range Interpretation Comments BNP (test code = BNP) 701 [facility] [employer]CAR[employer]AC [id number] 04:59:27 Test Item Value Reference Range Interpretation Comments Troponin-I (test code 0.57 See_Comment [Auto mated message] The = Troponin-I) system which g enerated this result transmit rohit reference range : <=0.40. The reference r leo was not used to interpr et this result as reji l/abnormal. [facility] [employer] [id number] 10:22:00 Test Item Value Reference Range Interpretation Comments BNP (test code = BNP) 526 [facility] [employer] [id number] 10:22:00 Test Item Value Reference Range Interpretation Comments Magnesium Lvl (test code = Magnesium 2.1 1.8-2.4 Lvl) [facility] [employer] [id number] 10:22:00 Test Item Value Reference Range Interpretation Comments Glucose Lvl (test code = Glucose Lvl) 117 70-99 [facility] [employer] [id number] 10:22:00 Test Item Value Reference Range Interpretation Comments BUN (test code = BUN) 41 7-22 [facility] [employer] [id number] 10:22:00 Test Item Value Reference Range Interpretation Comments Creatinine Lvl (test code = Creatinine 2.00 0.50-1.40 Lvl) [facility] [employer] [id number] 10:22:00 Test Item Value Reference Range Interpretation Comments Calcium Lvl (test code = Calcium Lvl) 9.0 8.5-10.5 [facility] [employer] [id number] 10:22:00 Test Item Value Reference Range Interpretation Comments Chloride Lvl (test code = Chloride Lvl) 102 95-109 [facility] [employer] [id number] 10:22:00 Test Item Value Reference Range Interpretation Comments CO2 (test code = CO2) 33 24-32 [facility]2016-12-26 10:22:00 Test Item Value Reference Range Interpretation Comments Sodium Lvl (test code = Sodium Lvl) 144 135-145 [facility]2016-12-26 10:22:00 Test Item Value Reference Range Interpretation Comments Potassium Lvl (test code = Potassium 4.0 3.5-5.1 Lvl) [facility]2016-12-26 10:22:00 Test Item Value Reference Range Interpretation Comments eGFR (test code = eGFR) 32 [facility]2016-12-26 10:22:00 Test Item Value Reference Range Interpretation Comments AGAP (test code = AGAP) 13.0 10.0-20.0 [facility]2016-12-26 10:22:00 Test Item Value Reference Range Interpretation Comments Phosphorus (test code = Phosphorus) 4.6 2.5-4.5 [facility] [id number] 10:22:00 Test Item Value Reference Range Interpretation Comments RBC (test code = RBC) 3.68 4.20-5.40 [facility] CenterSwbmbxbVHVSEZVFNH3479-39-13 10:22:00 Test Item Value Reference Range Interpretation Comments Hgb (test code = Hgb) 9.9 12.0-16.0 [facility] CenterTwqzpthJPABPSFKUL8541-61-82 10:22:00 Test Item Value Reference Range Interpretation Comments MCH (test code = MCH) 26.8 pg 27.0-31.0 [facility] CenterAtbtllcKJOTRSPXQN6774-17-02 10:22:00 Test Item Value Reference Range Interpretation Comments MCHC (test code = MCHC) 34.2 32.0-36.0 [facility] CenterSucmvuaOTBPZMHLBL6815-57-74 10:22:00 Test Item Value Reference Range Interpretation Comments MCV (test code = MCV) 78.3 80.0-98.0 [facility] CenterGiizybgBFGPYCVJKA7773-25-09 10:22:00 Test Item Value Reference Range Interpretation Comments Hct (test code = Hct) 28.8 36.0-48.0 [facility] CenterAcasmbsCWMUFKFZQO4181-48-78 10:22:00 Test Item Value Reference Range Interpretation Comments Platelet (test code = Platelet) 191 133-450 [facility] CenterCdlxhvtTOGAMTRWJD2379-99-39 10:22:00 Test Item Value Reference Range Interpretation Comments MPV (test code = MPV) 9.5 7.4-10.4 [facility] CenterUyauzhkABTTREIZMW1085-18-67 10:22:00 Test Item Value Reference Range Interpretation Comments RDW (test code = RDW) 15.3 11.5-14.5 [facility] CenterVbwlmugHEOWXOYXNW7476-02-75 10:22:00 Test Item Value Reference Range Interpretation Comments WBC (test code = WBC) 5.6 3.7-10.4 [facility] CenterSvagnoeWWJSVEEIRL6251-50-80 10:22:00 Test Item Value Reference Range Interpretation Comments Eosinophils # (test code 0.5 See_Comment [A utomated message] The = Eosinophils #) system whic h generated this result tra nsmitted reference range : <=0.5. The reference r leo was not used to int erpret this result as normal/abnormal . [facility] CenterBavwbknIQPRMJFSTU3031-88-71 10:22:00 Test Item Value Reference Range Interpretation Comments Microcyte (test code = 1+ *ABN*(06/15/16 Microcyte) 4:22 AM) [facility] CenterTncxnvgTRQZQGBGMH7613-42-05 10:22:00 Test Item Value Reference Range Interpretation Comments Basophils # (test code 0.1 See_Comment [Aut omated message] The = Basophils #) system which generated this result tra nsmitted reference range : <=0.2. The reference r leo was not used to int erpret this result as normal/abnormal . [facility] CenterVrkruehINZFJPRDUK8555-46-60 10:22:00 Test Item Value Reference Range Interpretation Comments Lymphocytes (test code = Lymphocytes) 33.5 20.0-40.0 [facility] CenterVlbspfzGKJOCGGGNU4831-96-43 10:22:00 Test Item Value Reference Range Interpretation Comments Segs (test code = Segs) 47.6 45.0-75.0 [facility] CenterRhslapsDRTYVYMXWP7969-90-40 10:22:00 Test Item Value Reference Range Interpretation Comments Monocytes (test code = Monocytes) 8.4 2.0-12.0 [facility] CenterLdiwrtsPUZUWISVSN9747-25-49 10:22:00 Test Item Value Reference Range Interpretation Comments Eosinophils (test code = 9.4 See_Comment [A utomated message] The Eosinophils) system which ge nerated this result tra nsmitted reference range : <=4.0. The reference r leo was not used to int erpret this result as normal/abnormal . [facility] CenterTfasoklOZLUTKJVMR0140-06-79 10:22:00 Test Item Value Reference Range Interpretation Comments Segs-Bands # (test code = Segs-Bands #) 2.6 1.5-8.1 [facility] CenterFzmedixUQJPABQVWB0154-46-09 10:22:00 Test Item Value Reference Range Interpretation Comments Lymphocytes # (test code = Lymphocytes 1.9 1.0-5.5 #) [facility] CenterSbrwzxxNPDDOZNGXY3033-17-09 10:22:00 Test Item Value Reference Range Interpretation Comments Basophils (test code = 1.1 See_Comment [Aut omated message] The Basophils) system which ge nerated this result tra nsmitted reference range : <=1.0. The reference r leo was not used to int erpret this result as normal/abnormal . [facility] CenterBibmkonJEFXOXZMRV2813-54-84 10:22:00 Test Item Value Reference Range Interpretation Comments Monocytes # (test code 0.5 See_Comment [Aut omated message] The = Monocytes #) system which generated this result tra nsmitted reference range : <=0.8. The reference r leo was not used to int erpret this result as normal/abnormal . [facility]2016-12-25 11:03:00 Test Item Value Reference Range Interpretation Comments Phosphorus (test code = Phosphorus) 4.8 2.5-4.5 [facility]2016-12-25 11:03:00 Test Item Value Reference Range Interpretation Comments Magnesium Lvl (test code = Magnesium 2.0 1.8-2.4 Lvl) [facility]2016-12-25 11:03:00 Test Item Value Reference Range Interpretation Comments eGFR (test code = eGFR) 32 [facility]2016-12-25 11:03:00 Test Item Value Reference Range Interpretation Comments Chloride Lvl (test code = Chloride Lvl) 101 95-109 [facility]2016-12-25 11:03:00 Test Item Value Reference Range Interpretation Comments Potassium Lvl (test code = Potassium 4.4 3.5-5.1 Lvl) [facility]2016-12-25 11:03:00 Test Item Value Reference Range Interpretation Comments BUN (test code = BUN) 37 7-22 [place] [id number] 11:03:00 Test Item Value Reference Range Interpretation Comments Glucose Lvl (test code = Glucose Lvl) 119 70-99 [facility]2016-12-25 11:03:00 Test Item Value Reference Range Interpretation Comments Creatinine Lvl (test code = Creatinine 2.00 0.50-1.40 Lvl) [facility]2016-12-25 11:03:00 Test Item Value Reference Range Interpretation Comments Sodium Lvl (test code = Sodium Lvl) 142 135-145 [facility]2016-12-25 11:03:00 Test Item Value Reference Range Interpretation Comments Calcium Lvl (test code = Calcium Lvl) 8.7 8.5-10.5 [facility]2016-12-25 11:03:00 Test Item Value Reference Range Interpretation Comments CO2 (test code = CO2) 32 24-32 [facility]2016-12-25 11:03:00 Test Item Value Reference Range Interpretation Comments AGAP (test code = AGAP) 13.4 10.0-20.0 [facility] CenterClumvpvXKPKGJIZFR4252-37-00 11:03:00 Test Item Value Reference Range Interpretation Comments Eosinophils (test code = 10.3 See_Comment [A utomated message] The Eosinophils) system which ge nerated this result tra nsmitted reference range : <=4.0. The reference r leo was not used to int erpret this result as normal/abnormal . [facility] CenterLjfouqdEVKFVCFJWD3905-96-68 11:03:00 Test Item Value Reference Range Interpretation Comments Basophils # (test code 0.1 See_Comment [Aut omated message] The = Basophils #) system which generated this result tra nsmitted reference range : <=0.2. The reference r leo was not used to int erpret this result as normal/abnormal . [facility] CenterHjqgvflOTUIKCYFET9370-33-18 11:03:00 Test Item Value Reference Range Interpretation Comments Eosinophils # (test code 0.5 See_Comment [A utomated message] The = Eosinophils #) system whic h generated this result tra nsmitted reference range : <=0.5. The reference r leo was not used to int erpret this result as normal/abnormal . [facility] CenterSexjftcJLMCOZAGAK8239-85-59 11:03:00 Test Item Value Reference Range Interpretation Comments Monocytes # (test code 0.5 See_Comment [Aut omated message] The = Monocytes #) system which generated this result tra nsmitted reference range : <=0.8. The reference r leo was not used to int erpret this result as normal/abnormal . [facility] CenterAxfcnwxFLLYCUSJQO1939-92-26 11:03:00 Test Item Value Reference Range Interpretation Comments Segs-Bands # (test code = Segs-Bands #) 2.1 1.5-8.1 [facility] CenterCrhjyngZHHBXKDVYH4128-32-65 11:03:00 Test Item Value Reference Range Interpretation Comments Basophils (test code = 1.2 See_Comment [Aut omated message] The Basophils) system which ge nerated this result tra nsmitted reference range : <=1.0. The reference r leo was not used to int erpret this result as normal/abnormal . [facility] CenterLtcmnxlLMRBJFUHST5275-01-32 11:03:00 Test Item Value Reference Range Interpretation Comments Lymphocytes # (test code = Lymphocytes 1.9 1.0-5.5 #) [facility] CenterMiyshifWCYYRHWZOQ8902-39-05 11:03:00 Test Item Value Reference Range Interpretation Comments Segs (test code = Segs) 42.5 45.0-75.0 [facility] CenterWgnzdvnPJCEIGMCTH2371-52-14 11:03:00 Test Item Value Reference Range Interpretation Comments Lymphocytes (test code = Lymphocytes) 37.0 20.0-40.0 [facility] CenterOznahpjYXNBPHCOGU6737-92-82 11:03:00 Test Item Value Reference Range Interpretation Comments Monocytes (test code = Monocytes) 9.0 2.0-12.0 [facility] CenterVejsqcxTPPFQLGZKB6758-96-19 11:03:00 Test Item Value Reference Range Interpretation Comments MPV (test code = MPV) 9.8 7.4-10.4 [facility] CenterQgricwlXIZATNMROT1023-45-96 11:03:00 Test Item Value Reference Range Interpretation Comments WBC (test code = WBC) 5.0 3.7-10.4 [facility] CenterKaqiajzMXTOGNGVJD4316-94-97 11:03:00 Test Item Value Reference Range Interpretation Comments RBC (test code = RBC) 3.57 4.20-5.40 [facility] CenterUsniwyxRGOBMOPDZY5161-75-50 11:03:00 Test Item Value Reference Range Interpretation Comments Hgb (test code = Hgb) 9.4 12.0-16.0 [facility] CenterLnzqmwmTZMURRQDEF4775-26-99 11:03:00 Test Item Value Reference Range Interpretation Comments Hct (test code = Hct) 28.5 36.0-48.0 [facility] CenterJbmqdnqNKFFNLDAVW7736-72-21 11:03:00 Test Item Value Reference Range Interpretation Comments Platelet (test code = Platelet) 183 133-450 [facility] CenterDmzjjgsHLDSHCSCWR5859-38-92 11:03:00 Test Item Value Reference Range Interpretation Comments MCV (test code = MCV) 79.9 80.0-98.0 [facility] CenterWmxutxkYJIERUSEMQ3615-73-90 11:03:00 Test Item Value Reference Range Interpretation Comments MCH (test code = MCH) 26.3 pg 27.0-31.0 [id number] 11:03:00 Test Item Value Reference Range Interpretation Comments MCHC (test code = MCHC) 33.0 32.0-36.0 [facility] CenterYpdfkmhZJYIJFHCBK3498-02-16 11:03:00 Test Item Value Reference Range Interpretation Comments RDW (test code = RDW) 15.9 11.5-14.5 [facility]2016-12-24 10:26:00 Test Item Value Reference Range Interpretation Comments U Prot/Creat (test code = U Prot/Creat) 6.9 [facility]2016-12-24 10:26:00 Test Item Value Reference Range Interpretation Comments U Creatinine (test code = U Creatinine) 19.30 [facility]2016-12-24 10:26:00 Test Item Value Reference Range Interpretation Comments U Protein (test code = U Protein) 133.1 [facility] CenterAupueprYGMCRMUMWD5471-58-12 09:20:00 Test Item Value Reference Range Interpretation Comments MPV (test code = MPV) 9.7 7.4-10.4 [facility] CenterJzyrylmJTIOGRPIFZ2408-88-41 09:20:00 Test Item Value Reference Range Interpretation Comments Platelet (test code = Platelet) 184 133-450 [facility] CenterLcgdvpwXIRSWQGDDG0525-44-35 09:20:00 Test Item Value Reference Range Interpretation Comments RDW (test code = RDW) 15.9 11.5-14.5 [facility] CenterSpstkbiRQRGGACZYV2674-27-75 09:20:00 Test Item Value Reference Range Interpretation Comments MCV (test code = MCV) 79.3 80.0-98.0 [facility] CenterSowofsaOBCZJDKNCV5434-06-76 09:20:00 Test Item Value Reference Range Interpretation Comments MCHC (test code = MCHC) 33.0 32.0-36.0 [facility] CenterXmvntmyLBLOLICERZ0816-01-81 09:20:00 Test Item Value Reference Range Interpretation Comments MCH (test code = MCH) 26.2 pg 27.0-31.0 [facility] CenterLcrcwasYIADMNGETW8067-66-53 09:20:00 Test Item Value Reference Range Interpretation Comments Hct (test code = Hct) 29.4 36.0-48.0 [facility] CenterCtsynhuZUYOWHEQYN3413-19-01 09:20:00 Test Item Value Reference Range Interpretation Comments Hgb (test code = Hgb) 9.7 12.0-16.0 [facility] CenterCkrxvdvEKCCLBHUQF7013-03-97 09:20:00 Test Item Value Reference Range Interpretation Comments RBC (test code = RBC) 3.70 4.20-5.40 [facility] CenterVzdbxfuHNBUZBZVXH5894-87-04 09:20:00 Test Item Value Reference Range Interpretation Comments WBC (test code = WBC) 5.7 3.7-10.4 [facility] CenterVsbvbqpSDALMWWMHR2102-24-95 09:20:00 Test Item Value Reference Range Interpretation Comments Basophils # (test code 0.1 See_Comment [Aut omated message] The = Basophils #) system which generated this result tra nsmitted reference range : <=0.2. The reference r leo was not used to int erpret this result as normal/abnormal . [facility] CenterVskpehjBDPOFKSVTX5147-74-54 09:20:00 Test Item Value Reference Range Interpretation Comments Lymphocytes # (test code = Lymphocytes 2.2 1.0-5.5 #) [facility] CenterIqfnavgFHKXSITYMJ8611-35-48 09:20:00 Test Item Value Reference Range Interpretation Comments Eosinophils # (test code 0.5 See_Comment [A utomated message] The = Eosinophils #) system whic h generated this result tra nsmitted reference range : <=0.5. The reference r leo was not used to int erpret this result as normal/abnormal . [facility] CenterIvebzoeIGRMAXCIOJ2930-31-20 09:20:00 Test Item Value Reference Range Interpretation Comments Monocytes # (test code 0.5 See_Comment [Aut omated message] The = Monocytes #) system which generated this result tra nsmitted reference range : <=0.8. The reference r leo was not used to int erpret this result as normal/abnormal . [facility] CenterWdtffxiTSQWXMKLSM4658-53-53 09:20:00 Test Item Value Reference Range Interpretation Comments Basophils (test code = 1.1 See_Comment [Aut omated message] The Basophils) system which ge nerated this result tra nsmitted reference range : <=1.0. The reference r leo was not used to int erpret this result as normal/abnormal . [facility] CenterKtfliskJJEFWOVHDZ9111-84-57 09:20:00 Test Item Value Reference Range Interpretation Comments Segs-Bands # (test code = Segs-Bands #) 2.3 1.5-8.1 [facility] CenterUptigvtILNZISEORQ4315-61-17 09:20:00 Test Item Value Reference Range Interpretation Comments Eosinophils (test code = 9.5 See_Comment [A utomated message] The Eosinophils) system which ge nerated this result tra nsmitted reference range : <=4.0. The reference r leo was not used to int erpret this result as normal/abnormal . [facility] CenterGaplwbwLSWAIMMHUK9457-53-51 09:20:00 Test Item Value Reference Range Interpretation Comments Monocytes (test code = Monocytes) 9.0 2.0-12.0 [facility] CenterTpipklaLKDYCRDBWA3685-58-28 09:20:00 Test Item Value Reference Range Interpretation Comments Lymphocytes (test code = Lymphocytes) 38.9 20.0-40.0 [facility] CenterWksmozmYIPNUXYVNK8842-43-53 09:20:00 Test Item Value Reference Range Interpretation Comments Segs (test code = Segs) 41.5 45.0-75.0 [facility] [id number] 06:34:00 Test Item Value Reference Range Interpretation Comments Magnesium Lvl (test code = Magnesium 1.7 1.8-2.4 Lvl) [facility] [id number] 06:34:00 Test Item Value Reference Range Interpretation Comments Phosphorus (test code = Phosphorus) 4.2 2.5-4.5 [facility] CenterRglmrcqZDGHPNFXEWZW1146-55-05 06:34:00 Test Item Value Reference Range Interpretation Comments AGAP (test code = AGAP) 14.3 10.0-20.0 [facility]CpnitsuXFQJLZYQMMJK0655-64-49 06:34:00 Test Item Value Reference Range Interpretation Comments eGFR (test code = eGFR) 41 [facility] HospitalDmeqpzxBTCXAZGKEFGM7046-29-01 06:34:00 Test Item Value Reference Range Interpretation Comments Chloride Lvl (test code = Chloride Lvl) 103 95-109 [facility] HospitalDojyuyhOJFJGELCPLIU4193-45-33 06:34:00 Test Item Value Reference Range Interpretation Comments Calcium Lvl (test code = Calcium Lvl) 8.5 8.5-10.5 [facility] HospitalMlrxmceNIGNORAJXIAG5081-19-54 06:34:00 Test Item Value Reference Range Interpretation Comments CO2 (test code = CO2) 32 24-32 [facility] HospitalIzrgkfzWWWSPUSPZRYR6073-76-16 06:34:00 Test Item Value Reference Range Interpretation Comments Glucose Lvl (test code = Glucose Lvl) 173 70-99 [facility] HospitalCeqmhwkRBIHAJMZAKLX0975-78-31 06:34:00 Test Item Value Reference Range Interpretation Comments BUN (test code = BUN) 37 7-22 [facility] HospitalEbvyvytYEHXDNHMJVOX8179-74-66 06:34:00 Test Item Value Reference Range Interpretation Comments Creatinine Lvl (test code = Creatinine 1.63 0.50-1.40 Lvl) [facility] HospitalCcukhhtOUVDFTZHLXGM4559-36-46 06:34:00 Test Item Value Reference Range Interpretation Comments Potassium Lvl (test code = Potassium 4.3 3.5-5.1 Lvl) [facility] HospitalMzkfgkqQVLQILBJHJTR4461-47-65 06:34:00 Test Item Value Reference Range Interpretation Comments Sodium Lvl (test code = Sodium Lvl) 145 135-145 [facility] HospitalCHEM [id number] 16:21:00 Test Item Value Reference Range Interpretation Comments Ammonia (test code = Ammonia) 48.0 [facility] HospitalWvqncvfXFUYBUCHXB8722-65-81 14:56:00 Test Item Value Reference Range Interpretation Comments VIETTE Interp (test code Pattern appears = IVETTE Interp) Nucleolar. [facility] CenterMlepixaRBXATTAGAO0277-10-86 14:56:00 Test Item Value Reference Range Interpretation Comments IVETTE Titer (test code = 1:40 *ABN*(06/11/16 IVETTE Titer) 8:56 AM) [facility] CenterJgryeebATTQQLSMRK0943-30-27 14:56:00 Test Item Value Reference Range Interpretation Comments Hep Bs Ag (test code Negative *NA*(06/11/16 = Hep Bs Ag) 8:56 AM) [facility] CenterYfturcwKKLTWBNCGP0392-32-96 14:56:00 Test Item Value Reference Range Interpretation Comments Hep C Ab (test code = Negative *NA*(06/11/16 Hep C Ab) 8:56 AM) [facility] CenterTqfvmauCPWHUFHJCD5703-14-11 14:56:00 Test Item Value Reference Range Interpretation Comments Hep B Core IgM (test Negative *NA*(06/11/16 code = Hep B Core 8:56 AM) IgM) [facility] CenterJpsnlxrYKIIKCZSUD8095-91-46 14:56:00 Test Item Value Reference Range Interpretation Comments Hep A IgM (test code Negative *NA*(06/11/16 = Hep A IgM) 8:56 AM) [facility] CenterZmssdncYZJFYGHTMH1691-48-57 14:56:00 Test Item Value Reference Range Interpretation Comments HIV Ag/Ab 4th Gen Negative *NA*(06/11/16 (test code = HIV 8:56 AM) Ag/Ab 4th Gen) [facility] CenterKntzxokCREUDJITLE2707-78-23 14:56:00 Test Item Value Reference Range Interpretation Comments IVETTE (test code = IVETTE) Positive *ABN*(06/11/16 8:56 AM) [facility]2016-12-22 10:42:00 Test Item Value Reference Range Interpretation Comments Bili Total (test code = Bili Total) 0.1 0.2-1.3 [facility]2016-12-22 10:42:00 Test Item Value Reference Range Interpretation Comments Total Protein (test code = Total 5.2 6.4-8.4 Protein) [facility]2016-12-22 10:42:00 Test Item Value Reference Range Interpretation Comments Albumin Lvl (test code = Albumin Lvl) 1.6 3.5-5.0 [facility]2016-12-22 10:42:00 Test Item Value Reference Range Interpretation Comments B/C Ratio (test code = B/C Ratio) 20 6-25 [facility]2016-12-22 10:42:00 Test Item Value Reference Range Interpretation Comments Globulin (test code = Globulin) 3.6 2.7-4.2 [facility] [id number] 10:42:00 Test Item Value Reference Range Interpretation Comments A/G Ratio (test code = A/G Ratio) 0.4 0.7-1.6 [facility] [id number] 10:42:00 Test Item Value Reference Range Interpretation Comments Alk Phos (test code = Alk Phos) 74 39-136 [facility] [id number] 10:42:00 Test Item Value Reference Range Interpretation Comments ALT (test code = ALT) 14 See_Comment [Auto mated message] The system which ge nerated this result transmit rohit reference range : <=65. The reference range was not used to interpr et this result as reji l/abnormal. [facility] [id number] 10:42:00 Test Item Value Reference Range Interpretation Comments AST (test code = AST) 13 See_Comment [Auto mated message] The system which ge nerated this result transmit rohit reference range : <=37. The reference range was not used to interpr et this result as reji l/abnormal. [facility] HospitalKizfloaBUJVFQUCPJ6334-82-71 10:42:00 Test Item Value Reference Range Interpretation Comments INR (test code = INR) 1.06 0.85-1.17 [facility] HospitalEidtnwoRURXAFMEQG2819-81-64 10:42:00 Test Item Value Reference Range Interpretation Comments PT (test code = PT) 14.0 s 12.0-14.7 [facility] HospitalWawvuehLBVBVZGVMB0343-63-60 10:42:00 Test Item Value Reference Range Interpretation Comments PTT (test code = PTT) 36.4 s 22.9-35.8 [facility] HospitalSPECIAL [id number] 10:42:00 Test Item Value Reference Range Interpretation Comments Hgb A1C (test code = Hgb A1C) 10.5 [facility] CenterannCARDIAC [id number] 02:08:00 Test Item Value Reference Range Interpretation Comments CK MB Index (test 1.8 See_Comment [Automate d message] The code = CK MB Index) system w [facility] generated this result transmit rohit reference range : <=2.5. The reference range was not used to interpr et this result as reji l/abnormal. [facility] HospitalCARDIAC [id number] 02:08:00 Test Item Value Reference Range Interpretation Comments CK MB (test code = CK MB) 2.9 0.5-3.6 [facility] [employer] [id number] 02:08:00 Test Item Value Reference Range Interpretation Comments Troponin-T (test code 0.061 See_Comment [Auto mated message] The = Troponin-T) system which g enerated this result transmit rohit reference range : <=0.100. The reference r leo was not used to interpr et this result as reji l/abnormal. [facility] [employer] [id number] 02:08:00 Test Item Value Reference Range Interpretation Comments Total CK (test code = Total CK) 159 12-191 [facility] [employer]2016-12-22 02:08:00 Test Item Value Reference Range Interpretation Comments Troponin-I (test code no gt See_Comment [Auto mated message] The = Troponin-I) system which g enerated this result transmit rohit reference range : <=0.40. The reference r leo was not used to interpr et this result as reji l/abnormal. [facility] [employer]2016-12-22 02:08:00 Test Item Value Reference Range Interpretation Comments Bili Total (test code = Bili Total) 0.2 0.2-1.3 [facility] [employer]2016-12-22 02:08:00 Test Item Value Reference Range Interpretation Comments Bili Direct (test code 0.1 See_Comment [Aut omated message] The = Bili Direct) system which generated this result tra nsmitted reference range : <=0.3. The reference r leo was not used to int erpret this result as reji l/abnormal. [facility] [employer]2016-12-22 02:08:00 Test Item Value Reference Range Interpretation Comments Bili Indirect (test 0.1 See_Comment [Automa rohit message] The code = Bili Indirect) system which generated this result tra nsmitted reference range : <=1.0. The reference r leo was not used to int erpret this result as normal/abnormal . [facility] [employer]2016-12-22 02:08:00 Test Item Value Reference Range Interpretation Comments Total Protein (test code = Total 5.7 6.4-8.4 Protein) [facility] [employer]2016-12-22 02:08:00 Test Item Value Reference Range Interpretation Comments A/G Ratio (test code = A/G Ratio) 0.5 0.7-1.6 [facility] CenterTab[facility] [id number] 02:08:00 Test Item Value Reference Range Interpretation Comments Albumin Lvl (test code = Albumin Lvl) 1.8 3.5-5.0 [facility] CenterTab[facility] [id number] 02:08:00 Test Item Value Reference Range Interpretation Comments Globulin (test code = Globulin) 3.9 2.7-4.2 [facility] CenterTab[facility] [id number] 02:08:00 Test Item Value Reference Range Interpretation Comments Alk Phos (test code = Alk Phos) 99 39-136 [facility] CenterTab[facility] [id number] 02:08:00 Test Item Value Reference Range Interpretation Comments AST (test code = AST) 21 See_Comment [Auto mated message] The system which ge nerated this result transmit rohit reference range : <=37. The reference range was not used to interpr et this result as reji l/abnormal. [facility] CenterTab[facility] [id number] 02:08:00 Test Item Value Reference Range Interpretation Comments ALT (test code = ALT) 17 See_Comment [Auto mated message] The system which ge nerated this result transmit rohit reference range : <=65. The reference range was not used to interpr et this result as reji l/abnormal. [facility] HospitalLadies Who Launch [id number] 02:08:00 Test Item Value Reference Range Interpretation Comments UDS Note (test code = See Note *NA*(06/10/16 UDS Note) 8:08 PM) [facility] CenterSpeed[facility] [id number] 02:08:00 Test Item Value Reference Range Interpretation Comments U Propoxyph Scr (test Negative *NA*(06/10/16 code = U Propoxyph Scr) 8:08 PM) [facility] CenterSpeed[facility] [id number] 02:08:00 Test Item Value Reference Range Interpretation Comments U Opiate Scr (test Negative *NA*(06/10/16 code = U Opiate Scr) 8:08 PM) [facility] CenterSpeed[facility] [id number] 02:08:00 Test Item Value Reference Range Interpretation Comments U Methadone Scr (test Negative *NA*(06/10/16 code = U Methadone Scr) 8:08 PM) [facility] [id number] 02:08:00 Test Item Value Reference Range Interpretation Comments U Phencyc Scr (test Negative *NA*(06/10/16 code = U Phencyc Scr) 8:08 PM) [facility] [id number] 02:08:00 Test Item Value Reference Range Interpretation Comments U Cannab Scr (test Negative *NA*(06/10/16 code = U Cannab Scr) 8:08 PM) [facility] [id number] 02:08:00 Test Item Value Reference Range Interpretation Comments U Amph Scr (test code Negative *NA*(06/10/16 = U Amph Scr) 8:08 PM) [facility] [id number] 02:08:00 Test Item Value Reference Range Interpretation Comments U Kelly Scr (test code Negative *NA*(06/10/16 = U Kelly Scr) 8:08 PM) [facility] CenterannDRUG [id number] 02:08:00 Test Item Value Reference Range Interpretation Comments U Benzodia Scr (test Negative *NA*(06/10/16 code = U Benzodia Scr) 8:08 PM) [facility] [id number] 02:08:00 Test Item Value Reference Range Interpretation Comments U Cocaine Scr (test Negative *NA*(06/10/16 code = U Cocaine Scr) 8:08 PM) [facility] [id number] 02:08:00 Test Item Value Reference Range Interpretation Comments LDL (Calculated) (test code = LDL 75 (Calculated)) [facility] [id number] 02:08:00 Test Item Value Reference Range Interpretation Comments VLDL (test code = VLDL) 27 [facility] [id number] 02:08:00 Test Item Value Reference Range Interpretation Comments Chol (test code = Chol) 133 [facility] VgnbpsmXQBVYZ4602-65-61 02:08:00 Test Item Value Reference Range Interpretation Comments Trig (test code = Trig) 133 [facility] [id number] 02:08:00 Test Item Value Reference Range Interpretation Comments CHD Risk (test code = CHD Risk) 4.29 3.90-5.80 [facility] [id number] 02:08:00 Test Item Value Reference Range Interpretation Comments HDL (test code = HDL) 31 [facility] AND [id number] 02:08:00 Test Item Value Reference Range Interpretation Comments UA Urobilinogen (test code = UA <=1.0 mg/dL 0.1-1.0 Urobilinogen) [facility] AND [id number] 02:08:00 Test Item Value Reference Range Interpretation Comments UA Ketones (test code = UA Negative mg/dL Ketones) [facility] AND [id number] 02:08:00 Test Item Value Reference Range Interpretation Comments UA Glucose (test code = UA Glucose) 300 mg/dL [facility] AND [id number] 02:08:00 Test Item Value Reference Range Interpretation Comments UA Protein (test code = UA >=300 mg/dL Protein) [facility] AND [id number] 02:08:00 Test Item Value Reference Range Interpretation Comments UA pH (test code = UA pH) 6.0 5.0-8.0 [facility] AND [id number] 02:08:00 Test Item Value Reference Range Interpretation Comments UA Nitrite (test code Negative (06/10/16 8:08 = UA Nitrite) PM) [facility] AND [id number] 02:08:00 Test Item Value Reference Range Interpretation Comments UA Blood (test code = Trace *ABN*(06/10/16 UA Blood) 8:08 PM) [facility] AND [id number] 02:08:00 Test Item Value Reference Range Interpretation Comments UA Bili (test code = Negative *NA*(06/10/16 UA Bili) 8:08 PM) [facility] AND [id number] 02:08:00 Test Item Value Reference Range Interpretation Comments UA Mucus (test code = UA Mucus) Few /LPF [facility] AND [id number] 02:08:00 Test Item Value Reference Range Interpretation Comments UA RBC (test code = 4 See_Comment [Automa rohit message] The UA RBC) system which ge nerated this result transmit rohit reference range : <=2. The reference range was not used to interpr et this result as reji l/abnormal. [facility] AND [id number] 02:08:00 Test Item Value Reference Range Interpretation Comments UA Sq Epi (test code = UA Sq Epi) Few /LPF [facility] [id number] 02:08:00 Test Item Value Reference Range Interpretation Comments UA WBC (test code = 5 See_Comment [Automa rohit message] The UA WBC) system which ge nerated this result transmit rohit reference range : <=5. The reference range was not used to interpr et this result as reji l/abnormal. [facility] [id number] 02:08:00 Test Item Value Reference Range Interpretation Comments UA Leuk Est (test code Small *ABN*(06/10/16 = UA Leuk Est) 8:08 PM) [facility] [id number] 02:08:00 Test Item Value Reference Range Interpretation Comments UA Hyal Cast (test 1 See_Comment [Automat ed message] The code = UA Hyal Cast) system which generated this result transmit rohit reference range : <=2. The reference range was not used to interpr et this result as reji l/abnormal. [facility] [id number] 02:08:00 Test Item Value Reference Range Interpretation Comments UA Spec Grav (test code = UA Spec Grav) 1.009 [facility] [id number] 02:08:00 Test Item Value Reference Range Interpretation Comments UA Color (test code = Yellow *NA*(06/10/16 UA Color) 8:08 PM) [facility] [id number] 02:08:00 Test Item Value Reference Range Interpretation Comments UA Turbidity (test code = Clear (06/10/16 8:08 UA Turbidity) PM) [facility]2016-12-22 02:08:00 Test Item Value Reference Range Interpretation Comments U Preg (test code = U Negative (06/10/16 8:08 Preg) PM) [facility] [id number] 02:08:00 Test Item Value Reference Range Interpretation Comments U Protein (test code = U Protein) 375.4 [facility] [id number] 02:08:00 Test Item Value Reference Range Interpretation Comments U Prot/Creat (test code = U Prot/Creat) 5.4 [facility] [id number] 02:08:00 Test Item Value Reference Range Interpretation Comments U Creatinine (test code = U Creatinine) 69.80 [facility] CenterBeakerCARDIAC [id number] 16:53:00 Test Item Value Reference Range Interpretation Comments BNP (test code = BNP) 1135 [facility] HospitalCARUnlimited ConceptsAC [id number] 16:53:00 Test Item Value Reference Range Interpretation Comments Troponin-I (test code no gt See_Comment [Auto mated message] The = Troponin-I) system which g enerated this result transmit rohti reference range : <=0.40. The reference r leo was not used to interpr et this result as reji l/abnormal. [facility] [employer] [id number] 13:02:00 Test Item Value Reference Range Interpretation Comments Lactic Acid WB (test code = Lactic Acid 0.9 0.5-2.2 WB) [facility] [id number] 12:29:44 Test Item Value Reference Range Interpretation Comments Valproic Acid Lvl (test code = Valproic 10 50-100 Acid Lvl) [facility] HospitalXalvvxdYSFVESBMWYOOD4980-21-13 11:21:27 Test Item Value Reference Range Interpretation Comments hCG Tot (test code = hCG Tot) 1 [facility] [employer] [id number] 11:21:00 Test Item Value Reference Range Interpretation Comments Albumin Lvl (test code = Albumin Lvl) 3.2 3.5-5.0 [facility] [employer] [id number] 11:21:00 Test Item Value Reference Range Interpretation Comments Total Protein (test code = Total 6.6 6.4-8.4 Protein) [facility] CenterTab[facility]a [id number] 11:21:00 Test Item Value Reference Range Interpretation Comments Bili Total (test code = Bili Total) 0.6 0.2-1.3 [facility] [employer] [id number] 11:21:00 Test Item Value Reference Range Interpretation Comments Alk Phos (test code = Alk Phos) 59 39-136 [facility] CenterTab[facility]a [id number] 11:21:00 Test Item Value Reference Range Interpretation Comments AST (test code = AST) 11 See_Comment [Auto mated message] The system which ge nerated this result transmit rohit reference range : <=37. The reference range was not used to interpr et this result as reji l/abnormal. [facility]2015-01-06 11:21:00 Test Item Value Reference Range Interpretation Comments ALT (test code = ALT) 17 See_Comment [Auto mated message] The system which ge nerated this result transmit rohit reference range : <=65. The reference range was not used to interpr et this result as reji l/abnormal. [facility]2015-01-06 11:21:00 Test Item Value Reference Range Interpretation Comments eGFR (test code = eGFR) 99 [facility]2015-01-06 11:21:00 Test Item Value Reference Range Interpretation Comments Glucose Lvl (test code = Glucose Lvl) 314 70-99 [facility]2015-01-06 11:21:00 Test Item Value Reference Range Interpretation Comments Potassium Lvl (test code = Potassium 3.4 3.5-5.1 Lvl) [facility]2015-01-06 11:21:00 Test Item Value Reference Range Interpretation Comments BUN (test code = BUN) 11 7-22 [facility]2015-01-06 11:21:00 Test Item Value Reference Range Interpretation Comments Creatinine Lvl (test code = Creatinine 0.8 0.5-1.4 Lvl) [facility]2015-01-06 11:21:00 Test Item Value Reference Range Interpretation Comments Sodium Lvl (test code = Sodium Lvl) 134 135-145 [facility]2015-01-06 11:21:00 Test Item Value Reference Range Interpretation Comments Chloride Lvl (test code = Chloride Lvl) 94 95-109 [facility]2015-01-06 11:21:00 Test Item Value Reference Range Interpretation Comments Calcium Lvl (test code = Calcium Lvl) 9.1 8.5-10.5 [facility]2015-01-06 11:21:00 Test Item Value Reference Range Interpretation Comments CO2 (test code = CO2) 24 24-32 [facility]2015-01-06 11:21:00 Test Item Value Reference Range Interpretation Comments A/G Ratio (test code = A/G Ratio) 0.9 0.7-1.6 [facility]2015-01-06 11:21:00 Test Item Value Reference Range Interpretation Comments Globulin (test code = Globulin) 3.4 2.0-4.0 [facility]2015-01-06 11:21:00 Test Item Value Reference Range Interpretation Comments B/C Ratio (test code = B/C Ratio) 14 6-25 [facility]2015-01-06 11:21:00 Test Item Value Reference Range Interpretation Comments AGAP (test code = AGAP) 19.4 10.0-20.0 [facility]2015-01-06 11:21:00 Test Item Value Reference Range Interpretation Comments Lipase Lvl (test code = Lipase Lvl) 81 73-393 [facility]IbxsbuwZYFAGGGTRQ2483-96-59 11:21:00 Test Item Value Reference Range Interpretation Comments Large Plt (test code = Large Plt) Slight [facility] CenterPakjkmkXTKAJFNOQB6436-40-74 11:21:00 Test Item Value Reference Range Interpretation Comments Basophils # (test code 0.0 See_Comment [Aut omated message] The = Basophils #) system which generated this result tra nsmitted reference range : <=0.2. The reference r leo was not used to int erpret this result as normal/abnormal . [facility] CenterAauxwubEVTLCJGRFP1653-55-53 11:21:00 Test Item Value Reference Range Interpretation Comments Anisocyte (test code = 1+ *ABN*(06/26/14 5:21 Anisocyte) AM) [facility] CenterLnoyslnXECWHYSJGG8359-62-42 11:21:00 Test Item Value Reference Range Interpretation Comments Monocytes # (test code 0.6 See_Comment [Aut omated message] The = Monocytes #) system which generated this result tra nsmitted reference range : <=0.8. The reference r leo was not used to int erpret this result as normal/abnormal . [facility] CenterJyyttujOCIQJGJXUX2269-50-60 11:21:00 Test Item Value Reference Range Interpretation Comments Eosinophils # (test code 0.1 See_Comment [A utomated message] The = Eosinophils #) system whic h generated this result tra nsmitted reference range : <=0.5. The reference r leo was not used to int erpret this result as normal/abnormal . [facility] CenterQcfhjvdRFHXZXWJAF7470-54-38 11:21:00 Test Item Value Reference Range Interpretation Comments Lymphocytes # (test code = Lymphocytes 2.5 1.0-5.5 #) [facility] CenterUigvrsoQMHZETXICS2003-03-43 11:21:00 Test Item Value Reference Range Interpretation Comments Segs (test code = Segs) 63.3 45.0-75.0 [facility] CenterFttusfgDJKPHRNREV0146-14-17 11:21:00 Test Item Value Reference Range Interpretation Comments Segs-Bands # (test code = Segs-Bands #) 5.6 1.5-8.1 [facility] CenterPvgclhtBVRJTGBTJU5887-32-96 11:21:00 Test Item Value Reference Range Interpretation Comments Basophils (test code = 0.0 See_Comment [Aut omated message] The Basophils) system which ge nerated this result tra nsmitted reference range : <=1.0. The reference r leo was not used to int erpret this result as normal/abnormal . [facility] CenterLrzqhjrDOTBCBFPMQ4048-10-68 11:21:00 Test Item Value Reference Range Interpretation Comments Eosinophils (test code = 0.9 See_Comment [A utomated message] The Eosinophils) system which ge nerated this result tra nsmitted reference range : <=4.0. The reference r leo was not used to int erpret this result as normal/abnormal . [facility] CenterIlcfmfvDKBMBWAVCW7760-15-98 11:21:00 Test Item Value Reference Range Interpretation Comments Monocytes (test code = Monocytes) 7.0 2.0-12.0 [facility] CenterMfwuxfdQFKUJJFEQQ0644-68-55 11:21:00 Test Item Value Reference Range Interpretation Comments Lymphocytes (test code = Lymphocytes) 28.8 20.0-40.0 [facility] CenterElzjbkoEXKMTGHGRF6572-64-54 11:21:00 Test Item Value Reference Range Interpretation Comments WBC (test code = WBC) 8.8 3.7-10.4 [facility] CenterEliywanREOMTTQDRD4466-60-78 11:21:00 Test Item Value Reference Range Interpretation Comments RBC (test code = RBC) 5.19 4.20-5.40 [facility] CenterSatdbltRIBGIZRWUT9844-41-34 11:21:00 Test Item Value Reference Range Interpretation Comments Hgb (test code = Hgb) 14.4 12.0-16.0 [facility] CenterWuaqsdiSSJEKVNKRQ0130-70-25 11:21:00 Test Item Value Reference Range Interpretation Comments Hct (test code = Hct) 43.1 36.0-48.0 [facility] CenterGpcqmvcHDPKVXUDTT5817-62-87 11:21:00 Test Item Value Reference Range Interpretation Comments MCV (test code = MCV) 83.1 80.0-98.0 [facility] CenterIrvwcrkZHHCKIXNTD2287-37-52 11:21:00 Test Item Value Reference Range Interpretation Comments MCH (test code = MCH) 27.8 pg 27.0-31.0 [facility] CenterWkmnlmsPHLMNOZSPS1393-26-38 11:21:00 Test Item Value Reference Range Interpretation Comments RDW (test code = RDW) 13.1 11.5-14.5 [facility] CenterLdfmdfaRCPAHOZPKK0329-30-33 11:21:00 Test Item Value Reference Range Interpretation Comments MCHC (test code = MCHC) 33.5 32.0-36.0 [facility] CenterDkrfiveBTEKOLSMOS8904-22-12 11:21:00 Test Item Value Reference Range Interpretation Comments Platelet (test code = Platelet) 201 133-450 [facility] CenterNepyjazHYXJCXYVFW9535-94-08 11:21:00 Test Item Value Reference Range Interpretation Comments MPV (test code = MPV) 10.4 7.4-10.4 [facility]HcltqaxHTBHMUCPBX3245-10-47 04:48:55 Test Item Value Reference Range Interpretation Comments UA [place] Yeast (test code = UA Occasional /HPF A [place] Yeast) [facility] TexasLcnqwdlAVGMGTQNGU1434-57-09 04:48:55 Test Item Value Reference Range Interpretation Comments UA Mucus (test code = UA Mucus) Few /LPF N [facility] TexasLbfwegkVCUDVNFHIP8137-21-17 04:48:55 Test Item Value Reference Range Interpretation Comments UA Sq Epi (test code = UA Sq Moderate /LPF A Epi) [facility] TexasJokzbxwPFVVCUEMVR5783-18-36 04:48:55 Test Item Value Reference Range Interpretation Comments Micro? (test code = Performed (04/14/2013 N Micro?) 23:48:55) [facility] TexasUrjlcxnDCAPSSBQDY2474-58-47 04:48:55 Test Item Value Reference Range Interpretation Comments UA WBC (test code = UA WBC) 0-2 /HPF N [facility] TexasEdyeasnKLSCJSSONX3674-85-38 04:48:55 Test Item Value Reference Range Interpretation Comments UA Bacteria (test code = UA Occasional /HPF N Bacteria) [facility] TexasGvxnzmlJBUJJSPEHB3674-23-89 04:48:55 Test Item Value Reference Range Interpretation Comments UA Glucose (test code = UA Glucose) 500 mg/dL A [facility] TexasZdgomapHOCQRFIFMC9469-35-41 04:48:55 Test Item Value Reference Range Interpretation Comments UA Bili (test code = Negative *NA*(04/14/2013 UA Bili) 23:48:55) [facility] TexasEkduukiIXKOGWAOWF2706-06-04 04:48:55 Test Item Value Reference Range Interpretation Comments UA Ketones (test code = Trace A UA Ketones) *ABN*(04/14/2013 23:48:55) [facility] TexasLizjldtHYMBINMYWQ9565-84-67 04:48:55 Test Item Value Reference Range Interpretation Comments UA Blood (test code = Negative (04/14/2013 N UA Blood) 23:48:55) [facility] TexasBmzgmzvGSMVZNOJWW9122-35-22 04:48:55 Test Item Value Reference Range Interpretation Comments UA Urobilinogen (test code = UA 0.2 0.1-1.0 N Urobilinogen) [facility] TexasLktctivTJFHQSPJFD9192-49-93 04:48:55 Test Item Value Reference Range Interpretation Comments UA Nitrite (test code Negative (04/14/2013 N = UA Nitrite) 23:48:55) [facility] TexasXswycqeMPYBRGQBKW5206-41-51 04:48:55 Test Item Value Reference Range Interpretation Comments UA Leuk Est (test Negative (04/14/2013 N code = UA Leuk Est) 23:48:55) [facility] TexasUdtkpskUXPMCWTXFH8470-28-47 04:48:55 Test Item Value Reference Range Interpretation Comments UA Turbidity (test code = Clear (04/14/2013 N UA Turbidity) 23:48:55) [facility] TexasXqzzersKNCKDLVMET5988-05-28 04:48:55 Test Item Value Reference Range Interpretation Comments UA Color (test code = Yellow *NA*(04/14/2013 UA Color) 23:48:55) [facility] TexasZskmlfcZPXKILXNVF9245-78-66 04:48:55 Test Item Value Reference Range Interpretation Comments UA pH (test code = UA pH) 7.0 1 5.0-8.0 N [facility] TexasGhtibfmLNAAKNZLFE2849-61-49 04:48:55 Test Item Value Reference Range Interpretation Comments UA Spec Grav (test code = UA Spec 1.025 1 N Grav) [facility] TexasFudkdkeXPULBCEKSJ0600-05-30 04:48:55 Test Item Value Reference Range Interpretation Comments UA Protein (test code = Trace A UA Protein) *ABN*(04/14/2013 23:48:55) [facility]OfxpcfaXPRMSKYZZ0935-41-79 04:28:00 Test Item Value Reference Range Interpretation Comments S Preg (test code = S Negative *NA*(04/14/2013 Preg) 23:28:00) [facility] HospitalSnbsgsxVLUHQTNGF9102-42-36 04:28:00 Test Item Value Reference Range Interpretation Comments Lipase Lvl (test code = Lipase Lvl) 233 73-393 N [facility] HospitalGgsufhwHTPHNWNKN3831-19-18 04:28:00 Test Item Value Reference Range Interpretation Comments Globulin (test code = Globulin) 4.1 2.0-4.0 H [facility] HospitalWfkjnjhZXKPWGRMV4271-73-90 04:28:00 Test Item Value Reference Range Interpretation Comments AGAP (test code = AGAP) 10.5 10.0-20.0 N [facility] HospitalRlhfrusCKWEYQDWJ7428-97-00 04:28:00 Test Item Value Reference Range Interpretation Comments B/C Ratio (test code = B/C Ratio) 6 6-25 N [facility] HospitalJkbrjeqAFWWRSTZO6569-98-66 04:28:00 Test Item Value Reference Range Interpretation Comments A/G Ratio (test code = A/G Ratio) 0.7 0.7-1.6 N [facility] HospitalUgstbriUJSBYYDFR5522-29-25 04:28:00 Test Item Value Reference Range Interpretation Comments eGFR (test code = eGFR) 130 [facility] HospitalZmpkjdxFQAHSUPZZ1727-49-65 04:28:00 Test Item Value Reference Range Interpretation Comments Albumin Lvl (test code = Albumin Lvl) 2.9 3.5-5.0 L [facility] HospitalEficdsfNJTMIAFBR4567-57-08 04:28:00 Test Item Value Reference Range Interpretation Comments ASPARTATE TRANSAMINASE 20 See_Comment N [Aut omated message] (test code = ASPARTATE The s ystem which TRANSAMINASE) generated this result transmitted ref erence range: <=37. Th e reference range was not used to interpr et this result as normal/abnormal . [facility] HospitalJydsibxILZFOASWB7188-51-78 04:28:00 Test Item Value Reference Range Interpretation Comments Bili Total (test code = Bili Total) 0.5 0.2-1.3 N [facility] HospitalNqadjxyQKQRQFAGQ7827-26-50 04:28:00 Test Item Value Reference Range Interpretation Comments Alk Phos (test code = Alk Phos) 89 39-136 N [facility] HospitalCtlnmflTNOJIROBI0882-16-38 04:28:00 Test Item Value Reference Range Interpretation Comments ALANINE AMINOTRANSFERASE 11 See_Comment N [A utomated message] (test code = ALANINE The sys tem which AMINOTRANSFERASE) generated this result transmitted ref erence range: <=65. Th e reference range was not used to int erpret this result as normal/abnormal . [facility] HospitalGvzhblmOECAAGMBW9694-79-30 04:28:00 Test Item Value Reference Range Interpretation Comments Creatinine Lvl (test code = Creatinine 0.5 0.5-1.4 N Lvl) [facility] HospitalPozumgiQAIAQJHHU0872-26-21 04:28:00 Test Item Value Reference Range Interpretation Comments BUN (test code = BUN) 3 7-22 L [facility] HospitalIsnbbgcQPJDJJLXH4028-47-71 04:28:00 Test Item Value Reference Range Interpretation Comments Glucose Lvl (test code = Glucose Lvl) 255 70-99 H [facility] HospitalIylwgdbGARFSHRZE0069-57-32 04:28:00 Test Item Value Reference Range Interpretation Comments Total Protein (test code = Total 7.0 6.4-8.4 N Protein) [facility] HospitalPuzivznCIQXQJVGP9003-53-86 04:28:00 Test Item Value Reference Range Interpretation Comments Calcium Lvl (test code = Calcium Lvl) 8.7 8.5-10.5 N [facility] HospitalIczuxvtTBVXUHXHF0526-91-54 04:28:00 Test Item Value Reference Range Interpretation Comments CO2 (test code = CO2) 29 24-32 N [facility] HospitalHqjmgjjHNOPVMEBR2974-70-47 04:28:00 Test Item Value Reference Range Interpretation Comments Chloride Lvl (test code = Chloride Lvl) 104 95-109 N [facility] HospitalSerrkafGRZNGKPQT8320-84-16 04:28:00 Test Item Value Reference Range Interpretation Comments Potassium Lvl (test code = Potassium 3.5 3.5-5.1 N Lvl) [facility] HospitalKtdjanwRLHVFWMEK0880-64-64 04:28:00 Test Item Value Reference Range Interpretation Comments Sodium Lvl (test code = Sodium Lvl) 140 135-[address] [facility] HospitalSabvjwfXSJKCNSYLV5858-57-68 04:28:00 Test Item Value Reference Range Interpretation Comments PROTIME (test code = PROTIME) 12.1 s 12.0-14.7 N [facility] CenterOhjhtxtPZRABPDZCH5880-90-16 04:28:00 Test Item Value Reference Range Interpretation Comments aPTT (test code = aPTT) 39.0 s 22.9-35.8 H [facility] CenterWioggezYKPQYESNTJ6009-53-73 04:28:00 Test Item Value Reference Range Interpretation Comments INR (test code = INR) 0.90 0.85-1.17 N [facility] CenterExtnvfyCFGQSDLIVI6780-71-34 04:28:00 Test Item Value Reference Range Interpretation Comments MCH (test code = MCH) 29.4 pg 27.0-31.0 N [facility] CenterQjtlaxpYJVWCPOFFY7501-58-15 04:28:00 Test Item Value Reference Range Interpretation Comments MCV (test code = MCV) 86.1 81.0-99.0 N [facility] CenterQfokwlkDHTJUFIGIY0277-23-19 04:28:00 Test Item Value Reference Range Interpretation Comments Hct (test code = Hct) 29.4 36.0-48.0 L [facility] CenterPfkhnkiANCQAUDUTE1177-26-41 04:28:00 Test Item Value Reference Range Interpretation Comments RDW (test code = RDW) 14.0 11.5-14.5 N [facility] CenterJexbkzjDMNVCWVJTT6187-58-46 04:28:00 Test Item Value Reference Range Interpretation Comments WBC X 10x3 (test code = WBC X 10x3) 6.2 3.7-10.4 N [facility] CenterLzjcsepOZTYEYZUCH0375-79-73 04:28:00 Test Item Value Reference Range Interpretation Comments Platelet (test code = Platelet) 178 133-450 N [facility] CenterNownqoxEZRUJWODTX1943-55-37 04:28:00 Test Item Value Reference Range Interpretation Comments MCHC (test code = MCHC) 34.1 32.0-36.0 N [facility] CenterGuaqzzpGGCZRYPVAF5903-18-43 04:28:00 Test Item Value Reference Range Interpretation Comments RBC X 10x6 (test code = RBC X 10x6) 3.41 4.20-5.40 L [facility] CenterOpbjuseLGTMFYFJYM1706-12-58 04:28:00 Test Item Value Reference Range Interpretation Comments Hgb (test code = Hgb) 10.0 12.0-16.0 L [facility] CenterLtegeisWUSAJKHZRL9814-62-22 04:28:00 Test Item Value Reference Range Interpretation Comments MPV (test code = MPV) 10.1 7.4-10.4 N [facility] CenterJhgcubaMYICHJRWJE7575-78-78 04:28:00 Test Item Value Reference Range Interpretation Comments Segs-Bands # (test code = Segs-Bands #) 4.4 1.5-8.1 N [facility] CenterOinksxlRGCNOHGGPD0974-80-91 04:28:00 Test Item Value Reference Range Interpretation Comments Basophils (test code = 0.7 See_Comment N [Aut omated message] The Basophils) system which ge nerated this result tra nsmitted reference range : <=1.0. The reference r leo was not used to int erpret this result as normal/abnormal . [facility] CenterJbpjrrxVYXKWPXNIW9613-09-74 04:28:00 Test Item Value Reference Range Interpretation Comments Segs (test code = Segs) 70.7 45.0-75.0 N [facility] CenterEvsvveaQTVKATSWEW9527-10-55 04:28:00 Test Item Value Reference Range Interpretation Comments Monocytes # (test code 0.3 See_Comment N [Aut omated message] The = Monocytes #) system which generated this result tra nsmitted reference range : <=0.8. The reference r leo was not used to int erpret this result as normal/abnormal . [facility] CenterHejywhhYPCXTVFMLB3284-82-04 04:28:00 Test Item Value Reference Range Interpretation Comments Lymphocytes # (test code = Lymphocytes 1.2 1.0-5.5 N #) [facility] CenterMmwfnliIXRKVUGNLU8950-71-02 04:28:00 Test Item Value Reference Range Interpretation Comments Monocytes (test code = Monocytes) 4.5 2.0-12.0 N [facility] CenterFtiuweyABROZJKLES3496-81-29 04:28:00 Test Item Value Reference Range Interpretation Comments Eosinophils (test code = 4.1 See_Comment H [A utomated message] The Eosinophils) system which ge nerated this result tra nsmitted reference range : <=4.0. The reference r leo was not used to int erpret this result as normal/abnormal . [facility] CenterHeaztvkVCEZXDELZZ8453-96-36 04:28:00 Test Item Value Reference Range Interpretation Comments Lymphocytes (test code = Lymphocytes) 20.0 20.0-40.[address] [facility] HospitalZkdqarqCLJUWLJYBX4439-60-18 04:28:00 Test Item Value Reference Range Interpretation Comments Basophils # (test code 0.0 See_Comment N [Aut omated message] The = Basophils #) system which generated this result tra nsmitted reference range : <=0.2. The reference r leo was not used to int erpret this result as normal/abnormal . [facility] CenterIzmiliyDWIZLNKMJU4099-28-03 04:28:00 Test Item Value Reference Range Interpretation Comments Eosinophils # (test code 0.3 See_Comment N [A utomated message] The = Eosinophils #) system whic h generated this result tra nsmitted reference range : <=0.5. The reference r leo was not used to int erpret this result as normal/abnormal . [facility] GLUCOSE TAAEBYJ9719-72-49 01:12:00 Test Item Value Reference Range Interpretation Comments Gluc POC Lif[facility] (test code = Gluc POC 260 70-99 H [facility]) [facility] GLUCOSE JXGDTRX6622-19-98 01:12:00 Test Item Value Reference Range Interpretation Comments Comment1 (test code = Comment1) Not[facility]WyfqihoYLJRCPJQWZ4048-34-20 23:40:00 Test Item Value Reference Range Interpretation Comments UA Protein (test code = Trace A UA Protein) *ABN*(03/14/2012 18:40:00) [facility]ZncubaqWBBERRGTLR3294-19-15 23:40:00 Test Item Value Reference Range Interpretation Comments UA pH (test code = UA pH) 6.0 1 5.0-8.0 N [facility] HospitalXkxygnrJGELGVOSEC8679-87-41 23:40:00 Test Item Value Reference Range Interpretation Comments UA Ketones (test code = >=80 mg/dL UA Ketones) *NA*(03/14/2012 18:40:00) [facility]villeFqzzeqzTKMKCOWOYV7391-00-69 23:40:00 Test Item Value Reference Range Interpretation Comments UA Glucose (test code = >=1000 mg/dL A UA Glucose) *ABN*(03/14/2012 18:40:00) [facility] HospitalNhjjmugWCBVFREFED7269-67-92 23:40:00 Test Item Value Reference Range Interpretation Comments UA Blood (test code = Negative (03/14/2012 N UA Blood) 18:40:00) [facility]villeRapvlqqQBMRZAVTYJ8087-60-92 23:40:00 Test Item Value Reference Range Interpretation Comments UA Nitrite (test code Negative (03/14/2012 N = UA Nitrite) 18:40:00) [facility]BibhxthXIDDSEVFNZ2420-10-44 23:40:00 Test Item Value Reference Range Interpretation Comments UA Urobilinogen (test code = UA 0.2 0.1-1.0 N Urobilinogen) [facility] TexasSaauqwsNQRAXKXOTV3806-54-37 23:40:00 Test Item Value Reference Range Interpretation Comments UA Leuk Est (test Negative (03/14/2012 N code = UA Leuk Est) 18:40:00) [facility]WvzksrmEUYAROMFAB9862-49-06 23:40:00 Test Item Value Reference Range Interpretation Comments UA Bili (test code = Negative *NA*(03/14/2012 UA Bili) 18:40:00) [facility] TexasVhudycsUSFRFDNYMM1581-04-25 23:40:00 Test Item Value Reference Range Interpretation Comments UA Turbidity (test code = Clear (03/14/2012 N UA Turbidity) 18:40:00) [facility] TexasMljgwwsOOIXZSYPHS2423-03-69 23:40:00 Test Item Value Reference Range Interpretation Comments UA Color (test code = Yellow *NA*(03/14/2012 UA Color) 18:40:00) [facility] TexasReboncjYAFKMJJEPF7849-58-86 23:40:00 Test Item Value Reference Range Interpretation Comments UA Spec Grav (test >=1.030 A code = UA Spec Grav) *ABN*(03/14/2012 18:40:00) [facility] TexasZpyymmkCHURFFETUE5265-29-40 23:40:00 Test Item Value Reference Range Interpretation Comments UA Sq Epi (test code Occasional /LPF N = UA Sq Epi) (03/14/2012 18:40:00) [facility] TexasZtnxbsrKKSJADJMKB7719-32-40 23:40:00 Test Item Value Reference Range Interpretation Comments UA WBC (test code = UA 3-5 /HPF (03/14/2012 N WBC) 18:40:00) [facility]villeVhrvbwnFAEPMAZLFR8918-40-78 23:40:00 Test Item Value Reference Range Interpretation Comments UA Bacteria (test code Occasional /HPF N = UA Bacteria) (03/14/2012 18:40:00) [facility] HospitalXvtlejhFVXDOGYSH2726-39-64 22:50:00 Test Item Value Reference Range Interpretation Comments S Preg (test code = S Negative *NA*(03/14/2012 Preg) 17:50:00) [facility] HospitalRfdrrcqGINCWHHOT7792-27-97 22:50:00 Test Item Value Reference Range Interpretation Comments Lipase Lvl (test code = Lipase Lvl) 45 73-393 L [facility] HospitalVopuegtAIEQJTJXU9108-40-97 22:50:00 Test Item Value Reference Range Interpretation Comments A/G Ratio (test code = A/G Ratio) 1.2 0.7-1.6 N [facility] HospitalQcsfgmqNOCYRXLVX0629-50-30 22:50:00 Test Item Value Reference Range Interpretation Comments Globulin (test code = Globulin) 3.8 2.0-4.0 N [facility] HospitalRxyvkxwLPIUDTZDG0755-52-46 22:50:00 Test Item Value Reference Range Interpretation Comments B/C Ratio (test code = B/C Ratio) 21 6-25 N [facility] HospitalEzxeaprKEWQFTNGL3441-79-31 22:50:00 Test Item Value Reference Range Interpretation Comments AGAP (test code = AGAP) 16.8 10.0-20.0 N [facility] HospitalQaxodylAFSLLYBMF9549-73-74 22:50:00 Test Item Value Reference Range Interpretation Comments Bili Total (test code = Bili Total) 1.1 0.2-1.3 N [facility] HospitalHcxdxqwELGMQEBMM1376-55-96 22:50:00 Test Item Value Reference Range Interpretation Comments Total Protein (test code = Total 8.2 6.4-8.4 N Protein) [facility] HospitalGkkhnvdYYZFDFSWB8577-05-39 22:50:00 Test Item Value Reference Range Interpretation Comments Potassium Lvl (test code = Potassium 3.8 3.5-5.1 N Lvl) [facility] HospitalDqsuduoEBZIANSZM5549-70-80 22:50:00 Test Item Value Reference Range Interpretation Comments Creatinine Lvl (test code = Creatinine 0.7 0.5-1.4 N Lvl) [facility] HospitalQaanzfrGRYXDOIYD2029-93-98 22:50:00 Test Item Value Reference Range Interpretation Comments Sodium Lvl (test code = Sodium Lvl) 139 135-145 N [facility] HospitalScrvvjeLNQXTQLSA3526-67-10 22:50:00 Test Item Value Reference Range Interpretation Comments Chloride Lvl (test code = Chloride Lvl) 99 95-[address] [facility]GcrxrdjYBJKPAUGR4231-23-57 22:50:00 Test Item Value Reference Range Interpretation Comments CO2 (test code = CO2) 27 24-32 N [facility] HospitalGgotmthSOHVUHQHN9087-66-37 22:50:00 Test Item Value Reference Range Interpretation Comments Glucose Lvl (test code = Glucose Lvl) 301 70-99 H [facility] [facility]tb[facility]oyEHTGROQTS3467-00-62 22:50:00 Test Item Value Reference Range Interpretation Comments BUN (test code = BUN) 15 7-22 N [facility]QteikpzQQAFFDFUG5625-37-73 22:50:00 Test Item Value Reference Range Interpretation Comments ALT (test code = ALT) 24 See_Comment N [Auto mated message] The system which ge nerated this result transmit rohit reference range : <=65. The reference range was not used to interpr et this result as reji l/abnormal. [facility] HospitalLeiswhgMBJJUKBBR8649-36-55 22:50:00 Test Item Value Reference Range Interpretation Comments AST (test code = AST) 20 See_Comment N [Auto mated message] The system which ge nerated this result transmit rohit reference range : <=37. The reference range was not used to interpr et this result as reji l/abnormal. [facility] HospitalNocponwJRDBZOHWI9917-24-47 22:50:00 Test Item Value Reference Range Interpretation Comments Alk Phos (test code = Alk Phos) 67 39-[address] [facility] CenterEgphvmxOTVPVZLAZ8660-51-39 22:50:00 Test Item Value Reference Range Interpretation Comments Albumin Lvl (test code = Albumin Lvl) 4.4 3.5-5.[address] [facility] CenterRqgehywJKYLFPIYM5754-48-91 22:50:00 Test Item Value Reference Range Interpretation Comments Calcium Lvl (test code = Calcium Lvl) 9.9 8.5-10.5 N [facility]BysbjdcAMFEIUCBIX0012-24-36 22:50:00 Test Item Value Reference Range Interpretation Comments MPV (test code = MPV) 11.8 7.4-10.4 H [facility] CenterIpqeprvGOPDQCXZWJ2951-30-24 22:50:00 Test Item Value Reference Range Interpretation Comments MCHC (test code = MCHC) 35.9 32.0-36.0 N [facility] CenterGbsljpiTHXCYSBDFC5913-18-87 22:50:00 Test Item Value Reference Range Interpretation Comments MCH (test code = MCH) 31.2 pg 27.0-31.0 H [facility] CenterMaizzuoUVSLAGUWTL9716-03-00 22:50:00 Test Item Value Reference Range Interpretation Comments Platelet (test code = Platelet) 189 133-450 N [facility] CenterQmitofgYBYEJHMRDB8412-91-92 22:50:00 Test Item Value Reference Range Interpretation Comments RDW (test code = RDW) 13.1 11.5-14.5 N [facility] CenterFywwteqUCUPAVFYLK5307-45-29 22:50:00 Test Item Value Reference Range Interpretation Comments Hct (test code = Hct) 40.7 36.0-48.0 N [facility] CenterZbsogqqOFTSLAIISN9593-01-24 22:50:00 Test Item Value Reference Range Interpretation Comments Hgb (test code = Hgb) 14.6 12.0-16.0 N [facility] CenterMewweyeFWOZFVMPEJ7263-23-56 22:50:00 Test Item Value Reference Range Interpretation Comments MCV (test code = MCV) 87.0 81.0-99.0 N [facility] CenterHyqkerlZDIWBNRZAR3742-79-48 22:50:00 Test Item Value Reference Range Interpretation Comments WBC (test code = WBC) 11.7 3.7-10.4 H [facility] CenterHjzjznxRCFEZRVJHR4059-77-20 22:50:00 Test Item Value Reference Range Interpretation Comments RBC (test code = RBC) 4.68 4.20-5.40 N [facility] CenterXvxepjoJKZJEZJOJW1773-30-52 22:50:00 Test Item Value Reference Range Interpretation Comments Basophils # (test code 0.0 See_Comment N [Aut omated message] The = Basophils #) system which generated this result tra nsmitted reference range : <=0.2. The reference r leo was not used to int erpret this result as normal/abnormal . [facility] CenterVxxysokMBTPTYRNBR3763-72-42 22:50:00 Test Item Value Reference Range Interpretation Comments Basophils (test code = 0.2 See_Comment N [Aut omated message] The Basophils) system which ge nerated this result tra nsmitted reference range : <=1.0. The reference r leo was not used to int erpret this result as normal/abnormal . [place] [id number] 22:50:00 Test Item Value Reference Range Interpretation Comments Eosinophils # (test code 0.0 See_Comment N [A utomated message] The = Eosinophils #) system whic h generated this result tra nsmitted reference range : <=0.5. The reference r leo was not used to int erpret this result as normal/abnormal . [facility] CenterKkuxcmlOAHFNGQBTC7676-02-60 22:50:00 Test Item Value Reference Range Interpretation Comments Monocytes # (test code 0.4 See_Comment N [Aut omated message] The = Monocytes #) system which generated this result tra nsmitted reference range : <=0.8. The reference r leo was not used to int erpret this result as normal/abnormal . [facility] CenterJidkknbZFIDUMXADQ3127-90-51 22:50:00 Test Item Value Reference Range Interpretation Comments Segs-Bands # (test code = Segs-Bands #) 10.6 1.5-8.1 H [facility] CenterLjvblgcKAAYFIAVXH8713-95-20 22:50:00 Test Item Value Reference Range Interpretation Comments Lymphocytes # (test code = Lymphocytes 0.7 1.0-5.5 L #) [facility] CenterHndtxbmNJOHOYDIMW8503-74-85 22:50:00 Test Item Value Reference Range Interpretation Comments Monocytes (test code = Monocytes) 3.4 2.0-12.0 N [facility] CenterZrssipjSEQMUCJFXW5435-90-83 22:50:00 Test Item Value Reference Range Interpretation Comments Plt Morph (test code = Normal (03/14/2012 N Plt Morph) 17:50:00) [facility] CenterVparlqtSXJPEKRVDJ2257-30-39 22:50:00 Test Item Value Reference Range Interpretation Comments Lymphocytes (test code = Lymphocytes) 6.0 20.0-40.0 L [facility] CenterMkywjwaYHWZWTTTHA3944-57-31 22:50:00 Test Item Value Reference Range Interpretation Comments Eosinophils (test code = 0.0 See_Comment N [A utomated message] The Eosinophils) system which ge nerated this result tra nsmitted reference range : <=4.0. The reference r leo was not used to int erpret this result as normal/abnormal . [facility] CenterUikahenPBZZCZPCWX0625-10-36 22:50:00 Test Item Value Reference Range Interpretation Comments Segs (test code = Segs) 90.4 45.0-75.[address] [facility] CenterUqawtjbENVNMCEBGQ0070-12-97 22:50:00 Test Item Value Reference Range Interpretation Comments RBC Morph (test code = Normal (03/14/2012 N RBC Morph) 17:50:00) [facility] GLUCOSE HCTYTWE7717-90-33 23:43:00 Test Item Value Reference Range Interpretation Comments Gluc POC Lifscn (test code = Gluc POC 167 70-99 H Lifscn) [facility] GLUCOSE CXHGKZC3867-06-92 23:43:00 Test Item Value Reference Range Interpretation Comments Comment1 (test code = Comment1) Notify RN/ [facility] GLUCOSE JELVYAP3738-89-53 23:43:00 Test Item Value Reference Range Interpretation Comments Comment2 (test code = Comment2) Sliding Scale [facility] GLUCOSE URJCONF4291-92-25 17:40:00 Test Item Value Reference Range Interpretation Comments Gluc POC Lifscn (test code = Gluc POC 189 70-99 H Lifscn) [facility] GLUCOSE WSJETNU9603-33-69 17:40:00 Test Item Value Reference Range Interpretation Comments Comment1 (test code = Comment1) Notify RN/ [facility] GLUCOSE LWHCFJS5933-24-47 17:40:00 Test Item Value Reference Range Interpretation Comments Comment2 (test code = Comment2) Sliding Scale [facility] GLUCOSE ACQXAJI8071-83-82 13:34:00 Test Item Value Reference Range Interpretation Comments Comment2 (test code = Comment2) Sliding Scale [facility] GLUCOSE DTKGDGD5599-77-58 13:34:00 Test Item Value Reference Range Interpretation Comments Gluc POC Lifscn (test code = Gluc POC 110 70-99 H Lifscn) [facility] GLUCOSE PHFXFEM3760-44-53 13:34:00 Test Item Value Reference Range Interpretation Comments Comment1 (test code = Comment1) [facility] RN/ [facility] CenterHoxaeypJVQZYGZPA8808-13-64 00:00:00 Test Item Value Reference Range Interpretation Comments U Preg (test code = U Negative (11/28/2011 N Preg) 19:00:00) [facility] CenterHwysjkkWCYQTFFMMN7684-89-33 00:00:00 Test Item Value Reference Range Interpretation Comments Micro? (test code = Performed (11/28/2011 N Micro?) 19:00:00) [facility]villeTogewzdTXTYYLEAXV0075-58-81 00:00:00 Test Item Value Reference Range Interpretation Comments UA Sq Epi (test code Occasional /LPF N = UA Sq Epi) (11/28/2011 19:00:00) [facility]villeFtaqlgpHUZHETBLYK9847-21-39 00:00:00 Test Item Value Reference Range Interpretation Comments UA RBC (test None Seen See_Comment N [Automated mes pastor] code = UA RBC) (11/28/2011 The system wh ich 19:00:00) generated this result transmitted ref erence range: <=2. The reference range was not used to int erpret this result as normal/abnormal . [facility]QrqusowEXDWDCIDUL7587-58-77 00:00:00 Test Item Value Reference Range Interpretation Comments UA WBC (test code Occasional See_Comment [Automate d message] The = UA WBC) system which ge nerated this result tra nsmitted reference range : <=5. The reference range was not used to interpr et this result as normal/abnormal . [facility]AznnksrWOKCZSPNDO9823-84-53 00:00:00 Test Item Value Reference Range Interpretation Comments UA Protein (test code Negative mg/dL N = UA Protein) (11/28/2011 19:00:00) [facility]villeBhnxjdqODRARMTADD0642-72-60 00:00:00 Test Item Value Reference Range Interpretation Comments UA pH (test code = UA pH) 7.0 1 5.0-8.0 N [facility]villeChaeulqRNZEUEWHSR3438-93-61 00:00:00 Test Item Value Reference Range Interpretation Comments UA Spec Grav (test code = UA Spec 1.020 1 N Grav) [facility]villeKkwkkapWYSLONMQHZ6258-77-20 00:00:00 Test Item Value Reference Range Interpretation Comments UA Turbidity (test code = Clear (11/28/2011 N UA Turbidity) 19:00:00) [facility]villeXxqovkpRACJMKOQBO0261-68-81 00:00:00 Test Item Value Reference Range Interpretation Comments UA Color (test code = Yellow *NA*(11/28/2011 UA Color) 19:00:00) [facility] GreenvilleLrqqueyJJULYOWSBW3951-46-42 00:00:00 Test Item Value Reference Range Interpretation Comments UA Urobilinogen (test code = UA 0.2 0.1-1.0 N Urobilinogen) [facility]ZpjixfpFKLTBFTWMT0912-53-98 00:00:00 Test Item Value Reference Range Interpretation Comments UA Blood (test code = Negative (11/28/2011 N UA Blood) 19:00:00) [facility] HospitalMxmkixhJFGXUIDQBH2591-27-83 00:00:00 Test Item Value Reference Range Interpretation Comments UA Bili (test code = Negative *NA*(11/28/2011 UA Bili) 19:00:00) [facility]villeCcqnoyiTXAAOJGWHP0682-04-14 00:00:00 Test Item Value Reference Range Interpretation Comments UA Ketones (test code = >=80 mg/dL A UA Ketones) *ABN*(11/28/2011 19:00:00) [facility] GreenvilleIbseloxQDBTURBPLE7620-18-25 00:00:00 Test Item Value Reference Range Interpretation Comments UA Glucose (test code = >=1000 mg/dL A UA Glucose) *ABN*(11/28/2011 19:00:00) [facility]villeGdgmawbQNCRBGJVQU0788-97-59 00:00:00 Test Item Value Reference Range Interpretation Comments UA Nitrite (test code Negative (11/28/2011 N = UA Nitrite) 19:00:00) [facility] HospitalZwpqyjqVBYWAQLMGB6358-22-74 00:00:00 Test Item Value Reference Range Interpretation Comments UA Leuk Est (test Negative (11/28/2011 N code = UA Leuk Est) 19:00:00) [facility]RslehhjKAPQXMAVJ2990-64-78 20:41:00 Test Item Value Reference Range Interpretation Comments pO2 Roberth (test code = pO2 Roberth) 60 20-49 H [facility] HospitalFfevlypKUKLQPZQP3469-98-12 20:41:00 Test Item Value Reference Range Interpretation Comments pCO2 Roberth (test code = pCO2 Roberth) 41 38-52 N [facility] HospitalCdwafimUDZQTGNJY7396-33-35 20:41:00 Test Item Value Reference Range Interpretation Comments pH Roberth (test code = pH Roberth) 7.45 7.28-7.42 H [facility] HospitalQiihzmqMGKCGKBRC4416-32-33 20:41:00 Test Item Value Reference Range Interpretation Comments Temp Roberth (test code = Temp Roberth) 37.0 [facility] HospitalHnsilztBJKKIIMPH7316-90-18 20:41:00 Test Item Value Reference Range Interpretation Comments O2 Sat Roberth (test code = O2 Sat Roberth) 92.0 40.0-70.0 H [facility] HospitalHldvsyuDLSPYTHTM7469-41-16 20:41:00 Test Item Value Reference Range Interpretation Comments BE Roberth (test code = 4 See_Comment H [Automa rohit message] The BE Roberth) system which ge nerated this result transmit rohit reference range : <=2. The reference range was not used to interpr et this result as reji l/abnormal. [facility] HospitalYvrxjubMPUHNWCRL7580-47-19 20:41:00 Test Item Value Reference Range Interpretation Comments HCO3 Roberth (test code = HCO3 Roberth) 28.5 22.0-26.0 H [facility] HospitalZjktnkqUSMFBJIVW4284-42-33 20:00:00 Test Item Value Reference Range Interpretation Comments Lactic Acid Lvl (test code = Lactic 1.6 0.5-2.2 N Acid Lvl) [facility] HospitalQklrgybYRUYLPOUX9222-67-34 20:00:00 Test Item Value Reference Range Interpretation Comments Lipase Lvl (test code = Lipase Lvl) 125 73-393 N [facility] HospitalJdxmiftKQCBSVYHL9317-38-40 20:00:00 Test Item Value Reference Range Interpretation Comments Albumin Lvl (test code = Albumin Lvl) 4.2 3.5-5.0 N [facility] HospitalGqtzxvoIVRCHASGB1033-41-21 20:00:00 Test Item Value Reference Range Interpretation Comments CO2 (test code = CO2) 23 24-32 L [facility] HospitalOjzqudqKBEXKZMLE6330-24-82 20:00:00 Test Item Value Reference Range Interpretation Comments Chloride Lvl (test code = Chloride Lvl) 98 95-109 N [facility] HospitalQsobrmgVNNOWRSRT3221-07-06 20:00:00 Test Item Value Reference Range Interpretation Comments Potassium Lvl (test code = Potassium 3.8 3.5-5.1 N Lvl) [facility] HospitalKazhxwyVKSYDSSLM2343-21-03 20:00:00 Test Item Value Reference Range Interpretation Comments Sodium Lvl (test code = Sodium Lvl) 138 135-145 N [facility] HospitalRroojfbVAMIHWMVY7089-11-93 20:00:00 Test Item Value Reference Range Interpretation Comments Creatinine Lvl (test code = Creatinine 0.7 0.5-1.4 N Lvl) [facility] HospitalKwwkmhlVXWWUGKWD3583-55-01 20:00:00 Test Item Value Reference Range Interpretation Comments BUN (test code = BUN) 9 7-22 N [facility] HospitalHffizmcJKHLTODAX4065-84-89 20:00:00 Test Item Value Reference Range Interpretation Comments Glucose Lvl (test code = Glucose Lvl) 269 70-99 H [facility] HospitalZyaymwtAJTANVXPA8311-78-25 20:00:00 Test Item Value Reference Range Interpretation Comments B/C Ratio (test code = B/C Ratio) 13 6-25 N [facility] HospitalRwtlsdbBWZQREQDI0761-68-18 20:00:00 Test Item Value Reference Range Interpretation Comments AGAP (test code = AGAP) 20.8 10.0-20.0 H [facility] HospitalRdofhraRHIMRONHF1498-73-52 20:00:00 Test Item Value Reference Range Interpretation Comments Calcium Lvl (test code = Calcium Lvl) 9.3 8.5-10.5 N [facility] HospitalTwwkzbjPSSXHLVHX3538-99-50 20:00:00 Test Item Value Reference Range Interpretation Comments Total Protein (test code = Total 6.7 6.4-8.4 N Protein) [facility] HospitalBricvmvIZKMJAEZJ9134-76-08 20:00:00 Test Item Value Reference Range Interpretation Comments A/G Ratio (test code = A/G Ratio) 1.7 0.7-1.6 H [facility] HospitalZnwregjMUCARKORA8774-86-04 20:00:00 Test Item Value Reference Range Interpretation Comments Globulin (test code = Globulin) 2.5 2.0-4.0 N [facility] HospitalRiwpaepVIHXQSYJG8040-78-22 20:00:00 Test Item Value Reference Range Interpretation Comments AST (test code = AST) 18 See_Comment N [Auto mated message] The system which ge nerated this result transmit rohit reference range : <=37. The reference range was not used to interpr et this result as reji l/abnormal. [facility] HospitalWoguvgxMRNFVOGJZ8586-20-92 20:00:00 Test Item Value Reference Range Interpretation Comments Alk Phos (test code = Alk Phos) 62 39-136 N [facility] HospitalKsmwxncACQYZICPV0824-06-25 20:00:00 Test Item Value Reference Range Interpretation Comments ALT (test code = ALT) 32 See_Comment N [Auto mated message] The system which ge nerated this result transmit rohit reference range : <=65. The reference range was not used to interpr et this result as reji l/abnormal. [place] 483322-06-09 20:00:00 Test Item Value Reference Range Interpretation Comments Bili Total (test code = Bili Total) 0.7 0.2-1.3 N [facility] CenterMpjxbniLJNALUBWYM5470-88-34 20:00:00 Test Item Value Reference Range Interpretation Comments Anisocyte (test code = 1+ *ABN*(11/28/2011 A Anisocyte) 15:00:00) [facility] CenterJnbtpltBCUGGNOZHY7073-44-89 20:00:00 Test Item Value Reference Range Interpretation Comments Monocytes # (test code 0.1 See_Comment N [Aut omated message] The = Monocytes #) system which generated this result tra nsmitted reference range : <=0.8. The reference r leo was not used to int erpret this result as normal/abnormal . [facility] CenterQzhdqxtNESNAYUIJK6956-86-72 20:00:00 Test Item Value Reference Range Interpretation Comments Eosinophils # (test code 0.0 See_Comment N [A utomated message] The = Eosinophils #) system whic h generated this result tra nsmitted reference range : <=0.5. The reference r leo was not used to int erpret this result as normal/abnormal . [facility] CenterEzdqvdxMBKCQDFUJV9098-28-74 20:00:00 Test Item Value Reference Range Interpretation Comments Basophils # (test code 0.0 See_Comment N [Aut omated message] The = Basophils #) system which generated this result tra nsmitted reference range : <=0.2. The reference r leo was not used to int erpret this result as normal/abnormal . [facility] CenterHozjkqpXFHPEYALWB0917-42-99 20:00:00 Test Item Value Reference Range Interpretation Comments Neut Vac (test code = Slight *ABN*(11/28/2011 A Neut Vac) 15:00:00) [facility] CenterTnsthuaKXASCUCXPL0179-07-36 20:00:00 Test Item Value Reference Range Interpretation Comments Large Plt (test code = Slight *ABN*(11/28/2011 A Large Plt) 15:00:00) [facility] CenterLxfjbzpNNNNTODYQL5773-58-62 20:00:00 Test Item Value Reference Range Interpretation Comments Segs-Bands # (test code = Segs-Bands #) 5.7 1.5-8.1 N [facility] CenterDovotfwQAKRLFENWI4861-70-69 20:00:00 Test Item Value Reference Range Interpretation Comments Lymphocytes # (test code = Lymphocytes 0.8 1.0-5.5 L #) [facility] CenterUcdnrxmGLNXQPFXWP0156-41-90 20:00:00 Test Item Value Reference Range Interpretation Comments Eosinophils (test code = 0.2 See_Comment N [A utomated message] The Eosinophils) system which ge nerated this result tra nsmitted reference range : <=4.0. The reference r leo was not used to int erpret this result as normal/abnormal . [facility] CenterGoswfjnAQDXSOLPON5169-78-71 20:00:00 Test Item Value Reference Range Interpretation Comments Basophils (test code = 0.0 See_Comment N [Aut omated message] The Basophils) system which ge nerated this result tra nsmitted reference range : <=1.0. The reference r leo was not used to int erpret this result as normal/abnormal . [facility] CenterKunujdiBESCLDHHWP1241-59-63 20:00:00 Test Item Value Reference Range Interpretation Comments Monocytes (test code = Monocytes) 1.9 2.0-12.0 L [facility] CenterBwdoxjuHWYQWWTSEB7788-59-13 20:00:00 Test Item Value Reference Range Interpretation Comments Segs (test code = Segs) 86.2 45.0-75.0 H [facility] CenterNlgavfqXSBVUXZEWQ5818-00-77 20:00:00 Test Item Value Reference Range Interpretation Comments Lymphocytes (test code = Lymphocytes) 11.7 20.0-40.0 L [facility] CenterWggojwySCVKFFZTCE8310-98-69 20:00:00 Test Item Value Reference Range Interpretation Comments MPV (test code = MPV) 10.8 7.4-10.4 H [facility] CenterNluvfjfVFUPJMSSWI3810-61-13 20:00:00 Test Item Value Reference Range Interpretation Comments Platelet (test code = Platelet) 161 133-450 N [facility] CenterFacvzpmVYUZHZVIAE9371-87-63 20:00:00 Test Item Value Reference Range Interpretation Comments MCHC (test code = MCHC) 35.6 32.0-36.0 N [facility] CenterYutqmuePLXHBKZWRV5970-94-91 20:00:00 Test Item Value Reference Range Interpretation Comments RDW (test code = RDW) 12.4 11.5-14.5 N [facility] CenterOxhryoaWTKLHDFBCO1358-67-35 20:00:00 Test Item Value Reference Range Interpretation Comments MCH (test code = MCH) 30.7 pg 27.0-31.0 N [facility] CenterXyqcrxdMGLTLNSDSF2593-85-80 20:00:00 Test Item Value Reference Range Interpretation Comments MCV (test code = MCV) 86.1 81.0-99.0 N [facility] CenterPusdqfwIUYBLMQJSB7726-22-72 20:00:00 Test Item Value Reference Range Interpretation Comments Hct (test code = Hct) 33.6 36.0-48.0 L [facility] CenterVofuuwtTPXCCSQNJO7128-72-49 20:00:00 Test Item Value Reference Range Interpretation Comments Hgb (test code = Hgb) 12.0 12.0-16.0 N [facility] CenterGmbyveqVPKWSVZNJH0432-82-21 20:00:00 Test Item Value Reference Range Interpretation Comments RBC (test code = RBC) 3.90 4.20-5.40 L [facility] CenterLwqbjhmPBULRZYKGI8961-46-42 20:00:00 Test Item Value Reference Range Interpretation Comments WBC (test code = WBC) 6.6 3.7-10.4 N [facility] HospitalOujsqhhYDXLAWMYJ7762-48-15 19:51:00 Test Item Value Reference Range Interpretation Comments UDS Note (test code = See Note UDS Note) 5*NA*(11/28/2011 14:51:00) [facility] HospitalMpjadetOOJKFDANJ8155-73-44 19:51:00 Test Item Value Reference Range Interpretation Comments U Phencyc Scr (test Negative code = U Phencyc Scr) *NA*(11/28/2011 14:51:00) [facility] HospitalFyvdjxlPLAPLVWZW7877-83-56 19:51:00 Test Item Value Reference Range Interpretation Comments U Kelly Scr (test code Negative *NA*(11/28/2011 = U Kelly Scr) 14:51:00) [facility] HospitalUezdlrvDHPMXDYMG1954-53-81 19:51:00 Test Item Value Reference Range Interpretation Comments U Amph Scr (test code Negative *NA*(11/28/2011 = U Amph Scr) 14:51:00) [facility] HospitalMlvuvxtTRGVQGSFT0658-79-79 19:51:00 Test Item Value Reference Range Interpretation Comments U Opiate Scr (test Negative code = U Opiate Scr) *NA*(11/28/2011 14:51:00) [facility] HospitalMgjwhysVCZIAYUDB2694-28-60 19:51:00 Test Item Value Reference Range Interpretation Comments U Cocaine Scr (test Negative code = U Cocaine Scr) *NA*(11/28/2011 14:51:00) [facility] HospitalRsljylsIMVLZGHEX4410-58-33 19:51:00 Test Item Value Reference Range Interpretation Comments U Cannab Scr (test Negative code = U Cannab Scr) *NA*(11/28/2011 14:51:00) [facility] HospitalLeijgmmSBHCQJRWO1171-46-74 19:51:00 Test Item Value Reference Range Interpretation Comments U Benzodia Scr (test Negative code = U Benzodia Scr) *NA*(11/28/2011 14:51:00) [facility] GLUCOSE OTULRLU8179-27-65 16:20:00 Test Item Value Reference Range Interpretation Comments Comment1 (test code = Comment1) Ravi RN/MD [facility] GLUCOSE MIMQPGD8437-02-81 16:20:00 Test Item Value Reference Range Interpretation Comments Gluc POC Lifscn (test code = Gluc POC 328 70-99 H Lifscn) [facility] HospitalXntbqceGLFUJWAWK2085-39-94 15:30:00 Test Item Value Reference Range Interpretation Comments U Preg (test code = U Negative (09/18/2011 N Preg) 10:30:00) [facility] HospitalYlyeacnAEUNUXDCWB1297-84-02 15:30:00 Test Item Value Reference Range Interpretation Comments UA WBC (test code = UA None Seen (09/18/2011 N WBC) 10:30:00) [facility]villeEmjgnlqGADECJBAYB8690-95-34 15:30:00 Test Item Value Reference Range Interpretation Comments UA RBC (test None Seen See_Comment N [Automated mes pastor] code = UA RBC) (09/18/2011 The system ich 10:30:00) generated this result transmitted ref erence range: <=2. The reference range was not used to int erpret this result as normal/abnormal . [facility] HospitalVruvoznTSIZRLWBIQ2377-36-04 15:30:00 Test Item Value Reference Range Interpretation Comments UA Bacteria (test code = None Seen (09/18/2011 N UA Bacteria) 10:30:00) [facility] HospitalCkikcfqPSGUMODXJO4227-49-43 15:30:00 Test Item Value Reference Range Interpretation Comments UA Amorph Destiny (test Few /HPF A code = UA Amorph Destiny) *ABN*(09/18/2011 10:30:00) [facility]villeHjhupzaINKHSSHLWL2864-50-13 15:30:00 Test Item Value Reference Range Interpretation Comments Micro? (test code = Performed (09/18/2011 N Micro?) 10:30:00) [facility]SxvlokfWFZVUQZTPC8643-27-83 15:30:00 Test Item Value Reference Range Interpretation Comments UA Sq Epi (test code = Rare /LPF (09/18/2011 N UA Sq Epi) 10:30:00) [facility] TexasNgxpniiPJZZWISPKM9670-87-15 15:30:00 Test Item Value Reference Range Interpretation Comments UA Ketones (test code = 15 mg/dL A UA Ketones) *ABN*(09/18/2011 10:30:00) [facility] TexasPoufwojMZYNIAKHPT9538-12-67 15:30:00 Test Item Value Reference Range Interpretation Comments UA Glucose (test code = >=1000 mg/dL A UA Glucose) *ABN*(09/18/2011 10:30:00) [facility] TexasDyzifncLQORWZIFTC6922-62-39 15:30:00 Test Item Value Reference Range Interpretation Comments UA Protein (test code = Trace A UA Protein) *ABN*(09/18/2011 10:30:00) [facility] TexasIkskrbuUYVDRHUFNX4415-60-61 15:30:00 Test Item Value Reference Range Interpretation Comments UA Urobilinogen (test code = UA 0.2 0.1-1.0 N Urobilinogen) [facility] TexasRotznsxLWRUKBPPIV7556-17-92 15:30:00 Test Item Value Reference Range Interpretation Comments UA Blood (test code = Negative (09/18/2011 N UA Blood) 10:30:00) [facility] TexasDwyfwdpBHKKZZDYLT8133-58-46 15:30:00 Test Item Value Reference Range Interpretation Comments UA Bili (test code = Negative *NA*(09/18/2011 UA Bili) 10:30:00) [facility] TexasVnthgcgJTQGEWPAUL9378-46-62 15:30:00 Test Item Value Reference Range Interpretation Comments UA Leuk Est (test Negative (09/18/2011 N code = UA Leuk Est) 10:30:00) [facility] TexasMxvjewvQMTMAACDJV6927-44-95 15:30:00 Test Item Value Reference Range Interpretation Comments UA Nitrite (test code Negative (09/18/2011 N = UA Nitrite) 10:30:00) [facility]XhvnvimSOSLRJMBMZ6653-65-16 15:30:00 Test Item Value Reference Range Interpretation Comments UA pH (test code = UA pH) 7.5 1 5.0-8.0 N [facility]IeijficKNKETRGNTF4708-67-82 15:30:00 Test Item Value Reference Range Interpretation Comments UA Spec Grav (test code = UA Spec 1.010 1 N Grav) [facility]villeWeimvqwHZUBZZBYYP3505-07-16 15:30:00 Test Item Value Reference Range Interpretation Comments UA Turbidity (test code Slight Cloudy N = UA Turbidity) (09/18/2011 10:30:00) [facility] TexasMufekzrQIVBWUXYIC3623-91-10 15:30:00 Test Item Value Reference Range Interpretation Comments UA Color (test code = Yellow *NA*(09/18/2011 UA Color) 10:30:00) [facility]TkhezceYNBIXVGUS1631-32-09 14:07:00 Test Item Value Reference Range Interpretation Comments Phosphorus (test code = Phosphorus) 4.4 2.5-4.5 N [facility] HospitalCclenxqYMXIDODEG0482-97-75 14:07:00 Test Item Value Reference Range Interpretation Comments Magnesium Lvl (test code = Magnesium 1.6 1.8-2.4 L Lvl) [facility] GLUCOSE PGUUQAR0840-26-24 14:01:00 Test Item Value Reference Range Interpretation Comments Gluc POC Lifscn (test code = Gluc POC no gt 70-99 A Lifscn) [facility] HospitalGpkdbanMEAJTWQMV2132-79-94 13:52:00 Test Item Value Reference Range Interpretation Comments pO2 Roberth (test code = pO2 Roberth) 24 20-49 N [facility] HospitalKxhyiehGZNIVZVME6635-75-62 13:52:00 Test Item Value Reference Range Interpretation Comments HCO3 Roberth (test code = HCO3 Roberth) 32.0 22.0-26.0 H [facility] HospitalUvvspytRHWAKZBIX1329-13-05 13:52:00 Test Item Value Reference Range Interpretation Comments pCO2 Roberth (test code = pCO2 Roberth) 44 38-52 N [facility] HospitalIdvfckcDGAZAEJAW6708-02-31 13:52:00 Test Item Value Reference Range Interpretation Comments BE Roberth (test code = 7 See_Comment H [Automa rohit message] The BE Roberth) system which ge nerated this result transmit rohit reference range : <=2. The reference range was not used to interpr et this result as reji l/abnormal. [facility] HospitalNqhgiiaVXOLEJKHC0437-68-73 13:52:00 Test Item Value Reference Range Interpretation Comments O2 Sat Roberth (test code = O2 Sat Roberth) 48.0 40.0-70.0 N [facility] HospitalTkebrwkHMSFOIWLW6382-96-10 13:52:00 Test Item Value Reference Range Interpretation Comments Temp Roberth (test code = Temp Roberth) 37.0 [facility] HospitalImwhxbzSYOEVXUZL6788-28-35 13:52:00 Test Item Value Reference Range Interpretation Comments pH Roberth (test code = pH Roberth) 7.47 7.28-7.42 H [facility] HospitalPefimhvYPNLAWOBW3699-11-22 13:52:00 Test Item Value Reference Range Interpretation Comments Calcium Lvl (test code = Calcium Lvl) 10.1 8.5-10.5 N [facility] HospitalTlbjkdoYBNBPHWOP0339-93-97 13:52:00 Test Item Value Reference Range Interpretation Comments Chloride Lvl (test code = Chloride Lvl) 92 95-109 L [facility] HospitalWqdeleeTUJAWCPBO0696-87-20 13:52:00 Test Item Value Reference Range Interpretation Comments CO2 (test code = CO2) 30 24-32 N [facility] HospitalFvfgdjlUSMLVHYXM2471-05-19 13:52:00 Test Item Value Reference Range Interpretation Comments Potassium Lvl (test code = Potassium 3.5 3.5-5.1 N Lvl) [facility] HospitalNvcasumOFGRXQSSY2682-50-32 13:52:00 Test Item Value Reference Range Interpretation Comments Sodium Lvl (test code = Sodium Lvl) 133 135-145 L [facility] HospitalQoongrdZFCROVCSO0936-52-83 13:52:00 Test Item Value Reference Range Interpretation Comments Creatinine Lvl (test code = Creatinine 1.3 0.5-1.4 N Lvl) [facility] HospitalQwcgitpZCCLTJJTE9233-34-91 13:52:00 Test Item Value Reference Range Interpretation Comments Glucose Lvl (test code = Glucose Lvl) 383 70-99 H [facility] HospitalWkykuwvVWXFYFODO3895-25-43 13:52:00 Test Item Value Reference Range Interpretation Comments BUN (test code = BUN) 17 7-22 N [facility] HospitalCglntdfCHLRZKDSG1547-51-29 13:52:00 Test Item Value Reference Range Interpretation Comments AGAP (test code = AGAP) 14.5 10.0-20.0 N [facility]ZiowoezMWWRHETCJB6892-00-23 13:52:00 Test Item Value Reference Range Interpretation Comments MPV (test code = MPV) 12.0 7.4-10.4 H [facility] CenterBtagujyCFWNMCAVRQ7606-57-82 13:52:00 Test Item Value Reference Range Interpretation Comments Platelet (test code = Platelet) 226 133-450 N [facility] CenterTuplyxuRJIDKPZKSU1772-16-59 13:52:00 Test Item Value Reference Range Interpretation Comments MCHC (test code = MCHC) 33.7 32.0-36.0 N [facility] CenterWuaicrcZQQRLGUJDT5536-23-24 13:52:00 Test Item Value Reference Range Interpretation Comments MCH (test code = MCH) 28.5 pg 27.0-31.0 N [facility] CenterNdqdgzeCDEVXSXZRB4182-74-24 13:52:00 Test Item Value Reference Range Interpretation Comments RDW (test code = RDW) 15.1 11.5-14.5 H [facility] CenterXjccgquCLRNKJBWES4326-67-61 13:52:00 Test Item Value Reference Range Interpretation Comments MCV (test code = MCV) 84.6 81.0-99.0 N [facility] CenterCcvnsgmJFDLFNUWNJ1831-81-51 13:52:00 Test Item Value Reference Range Interpretation Comments Hct (test code = Hct) 36.4 36.0-48.0 N [facility] CenterYcfzyftRPSRBBUYRF7179-12-20 13:52:00 Test Item Value Reference Range Interpretation Comments Hgb (test code = Hgb) 12.3 12.0-16.0 N [facility] CenterAcwawarQKPHZNTJJT5173-80-83 13:52:00 Test Item Value Reference Range Interpretation Comments RBC (test code = RBC) 4.30 4.20-5.40 N [facility] CenterCdmowwwBDMGWEPZNR0324-48-98 13:52:00 Test Item Value Reference Range Interpretation Comments WBC (test code = WBC) 11.7 3.7-10.4 H [facility] CenterPrqonjfEPTCFOAEPL6228-76-48 13:52:00 Test Item Value Reference Range Interpretation Comments Monocytes (test code = Monocytes) 2.9 2.0-12.0 N [facility] CenterGmnukzbIONAXBCXSJ2759-26-72 13:52:00 Test Item Value Reference Range Interpretation Comments Eosinophils (test code = 0.2 See_Comment N [A utomated message] The Eosinophils) system which ge nerated this result tra nsmitted reference range : <=4.0. The reference r leo was not used to int erpret this result as normal/abnormal . [facility] CenterMrbtejdHSDSSXMYEF8862-93-55 13:52:00 Test Item Value Reference Range Interpretation Comments Basophils (test code = 0.0 See_Comment N [Aut omated message] The Basophils) system which ge nerated this result tra nsmitted reference range : <=1.0. The reference r leo was not used to int erpret this result as normal/abnormal . [facility] CenterWomdhgeJRCZONHPJI3545-97-99 13:52:00 Test Item Value Reference Range Interpretation Comments Eosinophils # (test code 0.0 See_Comment N [A utomated message] The = Eosinophils #) system whic h generated this result tra nsmitted reference range : <=0.5. The reference r leo was not used to int erpret this result as normal/abnormal . [facility] CenterVclxmqjGZAXRUUWQM6366-06-32 13:52:00 Test Item Value Reference Range Interpretation Comments Monocytes # (test code 0.3 See_Comment N [Aut omated message] The = Monocytes #) system which generated this result tra nsmitted reference range : <=0.8. The reference r leo was not used to int erpret this result as normal/abnormal . [facility] CenterAcfijfsMYQBAIMTIU2396-52-67 13:52:00 Test Item Value Reference Range Interpretation Comments Segs (test code = Segs) 92.0 45.0-75.0 H [facility] CenterFpjhgckNKUZQCLSTC2966-91-26 13:52:00 Test Item Value Reference Range Interpretation Comments Lymphocytes (test code = Lymphocytes) 4.9 20.0-40.0 L [facility] CenterGqzcjyaPANPYTRUAY8998-74-23 13:52:00 Test Item Value Reference Range Interpretation Comments Spherocyte (test code = Rare A Spherocyte) *ABN*(09/18/2011 08:52:00) [facility] CenterYzktquyXNESASAXSU2741-79-24 13:52:00 Test Item Value Reference Range Interpretation Comments Large Plt (test code = Slight *ABN*(09/18/2011 A Large Plt) 08:52:00) [facility] CenterUxmgrlvDLWIPPKILA9242-59-87 13:52:00 Test Item Value Reference Range Interpretation Comments Microcyte (test code = 1+ *ABN*(09/18/2011 A Microcyte) 08:52:00) [facility] CenterLurbhpdUEHJXPSQMO2411-57-85 13:52:00 Test Item Value Reference Range Interpretation Comments Schistocyte (test code = Schistocyte) Rare [facility] CenterNyoibbpANSBYUWQCI9942-97-24 13:52:00 Test Item Value Reference Range Interpretation Comments Macrocyte (test code = 1+ *ABN*(09/18/2011 A Macrocyte) 08:52:00) [facility] CenterOsggkceJHSLEYCOEP5175-82-55 13:52:00 Test Item Value Reference Range Interpretation Comments Lymphocytes # (test code = Lymphocytes 0.6 1.0-5.5 L #) [facility] CenterWpmdtliRVGXLHPHPJ2567-14-59 13:52:00 Test Item Value Reference Range Interpretation Comments Segs-Bands # (test code = Segs-Bands #) 10.8 1.5-8.1 H [facility] CenterPvtemtnCWXLLBXGSE7305-01-26 13:52:00 Test Item Value Reference Range Interpretation Comments Basophils # (test code 0.0 See_Comment N [Aut omated message] The = Basophils #) system which generated this result tra nsmitted reference range : <=0.2. The reference r leo was not used to int erpret this result as normal/abnormal . [facility] CenterJupoebqUZTYXCLVAZ2137-99-04 13:52:00 Test Item Value Reference Range Interpretation Comments Anisocyte (test code = 1+ *ABN*(09/18/2011 A Anisocyte) 08:52:00) [facility]WkxxlkeATBGXKWMBB6136-66-77 13:52:00 Test Item Value Reference Range Interpretation Comments CDC-HIV 1/2 Ab (test Negative *NA*(09/18/2011 code = CDC-HIV 1/2 08:52:00) Ab) [facility] GLUCOSE HZMPEFP7518-59-81 17:34:00 Test Item Value Reference Range Interpretation Comments Gluc POC Lifscn (test code = Gluc POC 215 70-99 H Lifscn) [facility] GLUCOSE TYEIJMJ7194-53-36 17:34:00 Test Item Value Reference Range Interpretation Comments Comment1 (test code = Comment1) Notify RN/MD [facility] GLUCOSE FPWCFXF6306-52-30 11:43:00 Test Item Value Reference Range Interpretation Comments Comment1 (test code = Comment1) Notify RN/MD [facility] GLUCOSE DSRHNNI9795-95-53 11:43:00 Test Item Value Reference Range Interpretation Comments Gluc POC Lifscn (test code = Gluc POC 91 65-110 N Lifscn) [facility] GLUCOSE ULFVZRO0902-58-51 02:45:00 Test Item Value Reference Range Interpretation Comments Comment1 (test code = Comment1) Notify RN/MD [facility] GLUCOSE ZPSTOAM4096-37-48 02:45:00 Test Item Value Reference Range Interpretation Comments Gluc POC Lifscn (test code = Gluc POC 148 65-110 H Lifscn) [facility] HospitalPbzzpkiOHEDKHQVC3824-27-91 08:47:00 Test Item Value Reference Range Interpretation Comments Sodium Lvl (test code = Sodium Lvl) 143 135-145 N [facility] HospitalBghfewiQQVCNNUWR9011-98-42 08:47:00 Test Item Value Reference Range Interpretation Comments Glucose Lvl (test code = Glucose Lvl) 105 [facility] HospitalIvpxnwoYBSJXGDEH7104-38-40 08:47:00 Test Item Value Reference Range Interpretation Comments CO2 (test code = CO2) 29 24-32 N [facility] HospitalOjyknjiMEARBLHBG7800-32-92 08:47:00 Test Item Value Reference Range Interpretation Comments Chloride Lvl (test code = Chloride Lvl) 103 95-109 N [facility] HospitalJsvmsokSQNYMYVXZ3115-52-21 08:47:00 Test Item Value Reference Range Interpretation Comments BUN (test code = BUN) 10 7-22 N [facility] HospitalYqzefdwBSGMJDORJ0660-72-57 08:47:00 Test Item Value Reference Range Interpretation Comments Potassium Lvl (test code = Potassium 3.8 3.5-5.1 N Lvl) [facility] HospitalYjjkjgcRKURWKCKQ7200-18-74 08:47:00 Test Item Value Reference Range Interpretation Comments Creatinine Lvl (test code = Creatinine 0.6 0.5-1.4 N Lvl) [facility] HospitalRhmzorwLLLTOVLND3427-25-03 08:47:00 Test Item Value Reference Range Interpretation Comments Calcium Lvl (test code = Calcium Lvl) 8.5 8.5-10.5 N [facility] HospitalDhliarvUYXGATYDN3218-45-64 08:47:00 Test Item Value Reference Range Interpretation Comments AGAP (test code = AGAP) 14.8 10.0-20.0 N [facility] CenterXlvdstwCVONWEGSND2801-54-07 08:47:00 Test Item Value Reference Range Interpretation Comments MCH (test code = MCH) 28.9 pg 27.0-31.0 N [facility] CenterIbevozvVQHFQGWLXA1690-28-76 08:47:00 Test Item Value Reference Range Interpretation Comments MCV (test code = MCV) 82.1 81.0-99.0 N [facility] CenterVbcvoneXQFKWXKXPK1877-21-73 08:47:00 Test Item Value Reference Range Interpretation Comments Hct (test code = Hct) 25.9 36.0-48.0 L [facility] CenterJjcfylbUSUGPOVRSM3741-08-76 08:47:00 Test Item Value Reference Range Interpretation Comments Platelet (test code = Platelet) 233 133-450 N [facility] CenterAvbrmohWJXMZPBKWY9591-38-33 08:47:00 Test Item Value Reference Range Interpretation Comments RDW (test code = RDW) 14.5 11.5-14.5 N [facility] CenterLggrnynVUNCSHCXGP0167-70-07 08:47:00 Test Item Value Reference Range Interpretation Comments MCHC (test code = MCHC) 35.2 32.0-36.0 N [facility] CenterJvyakscSNXSVMKHJU5081-54-60 08:47:00 Test Item Value Reference Range Interpretation Comments Hgb (test code = Hgb) 9.1 12.0-16.0 L [facility] CenterHubqekcDXBFBTBKFW2169-40-00 08:47:00 Test Item Value Reference Range Interpretation Comments RBC (test code = RBC) 3.15 4.20-5.40 L [facility] CenterNoahnpqTKHJCCIZFZ9984-04-03 08:47:00 Test Item Value Reference Range Interpretation Comments MPV (test code = MPV) 9.0 7.4-10.4 N [facility] CenterLjsrwlqNBYEQTRGXC6493-29-63 08:47:00 Test Item Value Reference Range Interpretation Comments WBC (test code = WBC) 6.3 3.7-10.4 N [facility] CenterTvulaglTOEKZGXPRL9325-86-35 08:47:00 Test Item Value Reference Range Interpretation Comments Eosinophils # (test code 0.0 See_Comment N [A utomated message] The = Eosinophils #) system [facility] h generated this result tra nsmitted reference range : <=0.5. The reference r leo was not used to int erpret this result as normal/abnormal . [facility] CenterEbtrmphAVTHUFYLHQ1847-06-26 08:47:00 Test Item Value Reference Range Interpretation Comments Basophils # (test code 0.0 See_Comment N [Aut omated message] The = Basophils #) system which generated this result tra nsmitted reference range : <=0.2. The reference r leo was not used to int erpret this result as normal/abnormal . [facility] CenterXvexvmkVWUDUTCVHS4255-55-05 08:47:00 Test Item Value Reference Range Interpretation Comments Segs-Bands # (test code = Segs-Bands #) 3.8 1.5-8.1 N [facility] CenterKcfkkszWBDBXDCBKO5018-51-33 08:47:00 Test Item Value Reference Range Interpretation Comments Lymphocytes # (test code = Lymphocytes 2.0 1.0-5.5 N #) [facility] CenterSnwtgqyYGHRVSRSCD3382-40-88 08:47:00 Test Item Value Reference Range Interpretation Comments Basophils (test code = 0.5 See_Comment N [Aut omated message] The Basophils) system which ge nerated this result tra nsmitted reference range : <=1.0. The reference r leo was not used to int erpret this result as normal/abnormal . [facility] CenterZikeccfJWHNLIHTNY2979-75-10 08:47:00 Test Item Value Reference Range Interpretation Comments Eosinophils (test code = 0.7 See_Comment N [A utomated message] The Eosinophils) system which ge nerated this result tra nsmitted reference range : <=4.0. The reference r leo was not used to int erpret this result as normal/abnormal . [facility] CenterYbrwiltBERALWWJNR7429-85-16 08:47:00 Test Item Value Reference Range Interpretation Comments Monocytes (test code = Monocytes) 6.2 2.0-12.0 N [facility] CenterUnpbhpeQWCKNWBLZX1237-79-25 08:47:00 Test Item Value Reference Range Interpretation Comments Segs (test code = Segs) 61.1 45.0-75.0 N [facility] CenterAxlcdwpVBSWMAXZJW0284-51-51 08:47:00 Test Item Value Reference Range Interpretation Comments Lymphocytes (test code = Lymphocytes) 31.5 20.0-40.0 N [facility] CenterHsdjspyPNEKGQHZMC5403-84-03 08:47:00 Test Item Value Reference Range Interpretation Comments Monocytes # (test code 0.4 See_Comment N [Aut omated message] The = Monocytes #) system which generated this result tra nsmitted reference range : <=0.8. The reference r leo was not used to int erpret this result as normal/abnormal . [facility] HospitalPasxlzpCXDNBOTPR3176-52-22 10:54:00 Test Item Value Reference Range Interpretation Comments CO2 (test code = CO2) 27 24-32 N [facility] HospitalJlteuazCOKFQTFPQ3532-02-89 10:54:00 Test Item Value Reference Range Interpretation Comments Chloride Lvl (test code = Chloride Lvl) 104 95-109 N [facility] HospitalOercnecMSDAABMAT7276-56-87 10:54:00 Test Item Value Reference Range Interpretation Comments Creatinine Lvl (test code = Creatinine 0.5 0.5-1.4 N Lvl) [facility] HospitalOcaugkoAGDWQYQQA6250-53-12 10:54:00 Test Item Value Reference Range Interpretation Comments BUN (test code = BUN) 10 7-22 N [facility] HospitalDmgfkilKWLDOHIAQ7883-28-28 10:54:00 Test Item Value Reference Range Interpretation Comments Potassium Lvl (test code = Potassium 4.1 3.5-5.1 N Lvl) [facility] HospitalIgazayzJMSPDEZNR5981-50-06 10:54:00 Test Item Value Reference Range Interpretation Comments Sodium Lvl (test code = Sodium Lvl) 141 135-145 N [facility] HospitalSargodhXXBZCRWBM6191-91-23 10:54:00 Test Item Value Reference Range Interpretation Comments Glucose Lvl (test code = Glucose Lvl) 83 [facility] HospitalAyjdlvuAZNQTLIEW5983-03-62 10:54:00 Test Item Value Reference Range Interpretation Comments Calcium Lvl (test code = Calcium Lvl) 8.4 8.5-10.5 L [facility] HospitalSppwiesRAMTZLUUJ0471-51-85 10:54:00 Test Item Value Reference Range Interpretation Comments AGAP (test code = AGAP) 14.1 10.0-20.0 N [facility] CenterAyqlpgxJCDBZLSGLK3106-53-22 10:54:00 Test Item Value Reference Range Interpretation Comments Hct (test code = Hct) 35.5 36.0-48.0 L [facility] CenterDkkcpujNBOBBXZJQR7069-12-18 10:54:00 Test Item Value Reference Range Interpretation Comments WBC (test code = WBC) 4.7 3.7-10.4 N [facility] CenterQgdfzroRTKTJGGLTC2210-20-72 10:54:00 Test Item Value Reference Range Interpretation Comments MCV (test code = MCV) 92.6 81.0-99.0 N [facility] CenterJivaozpBIFCUDVKOG4914-83-68 10:54:00 Test Item Value Reference Range Interpretation Comments MCH (test code = MCH) 31.4 pg 27.0-31.0 H [facility] CenterAhdwnwrWOGSHXDTFB2404-95-16 10:54:00 Test Item Value Reference Range Interpretation Comments RBC (test code = RBC) 3.84 4.20-5.40 L [facility] CenterSlqhnwgBQEIFZOZPP1889-84-75 10:54:00 Test Item Value Reference Range Interpretation Comments Hgb (test code = Hgb) 12.1 12.0-16.0 N [facility] CenterGgppeamZECBGFHUCI8014-47-19 10:54:00 Test Item Value Reference Range Interpretation Comments Platelet (test code = Platelet) 287 133-450 N [facility] CenterJxojesaYKAUEWJRPR3820-95-33 10:54:00 Test Item Value Reference Range Interpretation Comments RDW (test code = RDW) 12.7 11.5-14.5 N [facility] CenterFobiiixFIKUFPJNXF8129-90-30 10:54:00 Test Item Value Reference Range Interpretation Comments MCHC (test code = MCHC) 33.9 32.0-36.0 N [facility] CenterAdqvnbpFBQMUZNLAN2755-31-35 10:54:00 Test Item Value Reference Range Interpretation Comments MPV (test code = MPV) 7.2 7.4-10.4 L [facility] CenterWniflkwJCMLJIJMYZ9683-41-86 10:54:00 Test Item Value Reference Range Interpretation Comments INR (test code = INR) 0.95 0.85-1.17 N [facility] CenterQnbuypcIXIDWDCMIB5798-40-72 10:54:00 Test Item Value Reference Range Interpretation Comments PT (test code = PT) 12.7 s 12.0-14.7 N [facility] CenterNhgbeorYZTMUIKCNN5647-68-55 10:54:00 Test Item Value Reference Range Interpretation Comments PTT (test code = PTT) 28.5 s 22.9-35.8 N [facility] CenterSwygifyRJYNGEYWDL8715-32-21 10:54:00 Test Item Value Reference Range Interpretation Comments Eosinophils # (test code 0.1 See_Comment N [A utomated message] The = Eosinophils #) system whic h generated this result tra nsmitted reference range : <=0.5. The reference r leo was not used to int erpret this result as normal/abnormal . [facility] CenterEunrrwnKXZHIRVHBG3309-30-35 10:54:00 Test Item Value Reference Range Interpretation Comments Basophils # (test code 0.0 See_Comment N [Aut omated message] The = Basophils #) system which generated this result tra nsmitted reference range : <=0.2. The reference r leo was not used to int erpret this result as normal/abnormal . [facility] CenterGoonqvkDFUABONSOQ0893-42-10 10:54:00 Test Item Value Reference Range Interpretation Comments Basophils (test code = 0.4 See_Comment N [Aut omated message] The Basophils) system which ge nerated this result tra nsmitted reference range : <=1.0. The reference r leo was not used to int erpret this result as normal/abnormal . [facility] CenterWsafvriTFTKJZYDIT7758-04-53 10:54:00 Test Item Value Reference Range Interpretation Comments Segs-Bands # (test code = Segs-Bands #) 2.1 1.5-8.1 N [facility] CenterYukcmjjSVZHAVGFPE9641-24-73 10:54:00 Test Item Value Reference Range Interpretation Comments Monocytes (test code = Monocytes) 9.0 2.0-12.0 N [facility] CenterKuqsdwtHGZLGJRZNH1562-01-43 10:54:00 Test Item Value Reference Range Interpretation Comments Eosinophils (test code = 2.4 See_Comment N [A utomated message] The Eosinophils) system which ge nerated this result tra nsmitted reference range : <=4.0. The reference r leo was not used to int erpret this result as normal/abnormal . [facility] CenterFvmpuhrMEDDXWIZNE4940-92-38 10:54:00 Test Item Value Reference Range Interpretation Comments Monocytes # (test code 0.4 See_Comment N [Aut omated message] The = Monocytes #) system which generated this result tra nsmitted reference range : <=0.8. The reference r leo was not used to int erpret this result as normal/abnormal . [facility] CenterKdiquvnJKDUNUOCPI2436-50-57 10:54:00 Test Item Value Reference Range Interpretation Comments Lymphocytes # (test code = Lymphocytes 2.0 1.0-5.5 N #) [facility] CenterWdeheomXVNIVFIXMA2632-08-71 10:54:00 Test Item Value Reference Range Interpretation Comments Lymphocytes (test code = Lymphocytes) 42.8 20.0-40.0 [facility] CenterHcqqkkrHUZWFESKBX6711-98-85 10:54:00 Test Item Value Reference Range Interpretation Comments Segs (test code = Segs) 45.4 45.0-75.0 N [facility]GxkpddyNKWENDWHJ3551-81-89 10:02:00 Test Item Value Reference Range Interpretation Comments Chloride Lvl (test code = Chloride Lvl) 105 95-109 N [facility] HospitalJfsiqukIXDMLCRDC2624-64-14 10:02:00 Test Item Value Reference Range Interpretation Comments Potassium Lvl (test code = Potassium 4.1 3.5-5.1 N Lvl) [facility] HospitalIlzgjgxQNMMOBDID1854-12-29 10:02:00 Test Item Value Reference Range Interpretation Comments Sodium Lvl (test code = Sodium Lvl) 143 135-145 N [facility] HospitalYfdhqdiOACYXRUOU1857-60-22 10:02:00 Test Item Value Reference Range Interpretation Comments CO2 (test code = CO2) 29 24-32 N [facility] HospitalLxecjvjZASHARZAC7005-76-94 10:02:00 Test Item Value Reference Range Interpretation Comments Calcium Lvl (test code = Calcium Lvl) 8.7 8.5-10.5 N [facility] HospitalCluvwgrYIBXFFIBC3323-09-10 10:02:00 Test Item Value Reference Range Interpretation Comments BUN (test code = BUN) 6 7-22 L [facility] HospitalRtvxtfhURDKGEIDF8690-25-84 10:02:00 Test Item Value Reference Range Interpretation Comments Creatinine Lvl (test code = Creatinine 0.6 0.5-1.4 N Lvl) [facility] HospitalAsepsepQGHFKLSQB2186-45-59 10:02:00 Test Item Value Reference Range Interpretation Comments Glucose Lvl (test code = Glucose Lvl) 118 [facility] HospitalZllymaaCGFFICWFR3137-95-64 10:02:00 Test Item Value Reference Range Interpretation Comments AGAP (test code = AGAP) 13.1 10.0-20.0 N [facility]NofhgniNJFVUOMRWU4678-28-71 10:02:00 Test Item Value Reference Range Interpretation Comments Basophils # (test code 0.0 See_Comment N [Aut omated message] The = Basophils #) system which generated this result tra nsmitted reference range : <=0.2. The reference r leo was not used to int erpret this result as normal/abnormal . [facility] CenterNiouxizBJOJXTCQIP9821-27-31 10:02:00 Test Item Value Reference Range Interpretation Comments Monocytes # (test code 0.3 See_Comment N [Aut omated message] The = Monocytes #) system which generated this result tra nsmitted reference range : <=0.8. The reference r leo was not used to int erpret this result as normal/abnormal . [facility] CenterBkaxozsBLGVDBDYRI8395-60-35 10:02:00 Test Item Value Reference Range Interpretation Comments Eosinophils # (test code 0.1 See_Comment N [A utomated message] The = Eosinophils #) system whic h generated this result tra nsmitted reference range : <=0.5. The reference r leo was not used to int erpret this result as normal/abnormal . [facility] CenterAjfibruUXJNZKDLMS1284-09-81 10:02:00 Test Item Value Reference Range Interpretation Comments Segs-Bands # (test code = Segs-Bands #) 2.8 1.5-8.1 N [facility] CenterXpmwglvGVYMHDTUJC4340-99-86 10:02:00 Test Item Value Reference Range Interpretation Comments Lymphocytes # (test code = Lymphocytes 1.7 1.0-5.5 N #) [facility] CenterPeyitnwBDVYVILVEL9159-40-17 10:02:00 Test Item Value Reference Range Interpretation Comments Basophils (test code = 0.6 See_Comment N [Aut omated message] The Basophils) system which ge nerated this result tra nsmitted reference range : <=1.0. The reference r leo was not used to int erpret this result as normal/abnormal . [facility] CenterGagmxbvTPVWFBBDRO3146-95-30 10:02:00 Test Item Value Reference Range Interpretation Comments Monocytes (test code = Monocytes) 6.9 2.0-12.0 N [facility] CenterDrvkschBCGXHRNPZN7638-28-38 10:02:00 Test Item Value Reference Range Interpretation Comments Eosinophils (test code = 2.0 See_Comment N [A utomated message] The Eosinophils) system which ge nerated this result tra nsmitted reference range : <=4.0. The reference r leo was not used to int erpret this result as normal/abnormal . [facility] CenterQnxctvoPWGPYOWCZC5041-08-91 10:02:00 Test Item Value Reference Range Interpretation Comments Segs (test code = Segs) 55.8 45.0-75.0 N [facility] CenterTifjvxvHILCUJZWAB4296-76-81 10:02:00 Test Item Value Reference Range Interpretation Comments Lymphocytes (test code = Lymphocytes) 34.7 20.0-40.0 N [facility] CenterRsktzhaRXWQYYHVAY3813-96-14 10:02:00 Test Item Value Reference Range Interpretation Comments PTT (test code = PTT) 32.2 s 22.9-35.8 N [facility] CenterBjofbozQYYOELLDHA8794-52-21 10:02:00 Test Item Value Reference Range Interpretation Comments PT (test code = PT) 13.3 s 12.0-14.7 N [facility] CenterRtnjkicFIKKIRYIWJ2855-79-25 10:02:00 Test Item Value Reference Range Interpretation Comments INR (test code = INR) 1.01 0.85-1.17 N [facility] CenterFcogholTVDCWUALNZ9443-31-49 10:02:00 Test Item Value Reference Range Interpretation Comments Hct (test code = Hct) 27.5 36.0-48.0 L [facility] CenterHzvmxupCVEZWTAYXF9254-51-32 10:02:00 Test Item Value Reference Range Interpretation Comments RBC (test code = RBC) 3.34 4.20-5.40 L [facility] CenterEprdxpuPJSKSIBJCA2187-16-09 10:02:00 Test Item Value Reference Range Interpretation Comments Hgb (test code = Hgb) 9.7 12.0-16.0 L [facility] CenterXojnahmPOFWTJLUZB4435-82-86 10:02:00 Test Item Value Reference Range Interpretation Comments WBC (test code = WBC) 5.0 3.7-10.4 N [facility] CenterEtrjnnmOQRKDOGNXF0458-28-67 10:02:00 Test Item Value Reference Range Interpretation Comments MPV (test code = MPV) 9.2 7.4-10.4 N [facility] CenterAhdsotrBFCJNQSQZO9041-43-65 10:02:00 Test Item Value Reference Range Interpretation Comments Platelet (test code = Platelet) 240 133-450 N [facility] CenterUkvgmfeMHDOZWTSYX4453-92-72 10:02:00 Test Item Value Reference Range Interpretation Comments RDW (test code = RDW) 14.3 11.5-14.5 N [place] 540182-03-19 10:02:00 Test Item Value Reference Range Interpretation Comments MCHC (test code = MCHC) 35.2 32.0-36.0 N [facility] CenterFpfebojPDETTVRWJB8403-27-55 10:02:00 Test Item Value Reference Range Interpretation Comments MCH (test code = MCH) 28.9 pg 27.0-31.0 N [facility] CenterBpwvlrhUZKFTBYZBL5770-46-00 10:02:00 Test Item Value Reference Range Interpretation Comments MCV (test code = MCV) 82.1 81.0-99.0 N [facility] HospitalTodjwmyAJWQSZUJT7872-57-07 09:24:00 Test Item Value Reference Range Interpretation Comments Magnesium Lvl (test code = Magnesium 2.1 1.8-2.4 N Lvl) [facility] HospitalLhqfudqVflsgplmlmqf6952-22-01 00:32:00 Test Item Value Reference Range Interpretation Comments Culture: Aspirate/Body Fluid/Tissue (test code = Culture: Aspirate/Body Fluid/Tissue) [facility] HospitalMidfwnwXxbhtivzvpye2911-73-67 00:32:00 Test Item Value Reference Range Interpretation Comments Culture: Anaerobic (test code = Culture: Anaerobic) [facility] HospitalYscajlzATPZVOBVG4334-38-36 17:10:00 Test Item Value Reference Range Interpretation Comments Temp Roberth (test code = Temp Roberth) 37.0 [facility] HospitalEosebphTXKKGYHFM4946-10-12 17:10:00 Test Item Value Reference Range Interpretation Comments O2 Sat Roberth (test code = O2 Sat Roberth) 27.0 40.0-70.0 L [facility] HospitalFpgdpsiVNWHNJMGN3684-63-36 17:10:00 Test Item Value Reference Range Interpretation Comments pCO2 Roberth (test code = pCO2 Roberth) 47 38-52 N [facility] HospitalBneofgwGYYDHJLAM5702-78-23 17:10:00 Test Item Value Reference Range Interpretation Comments pH Roberth (test code = pH Roberth) 7.37 7.28-7.42 N [facility] HospitalLnefvebQNZJYJJPA2991-68-98 17:10:00 Test Item Value Reference Range Interpretation Comments BE Roberth (test code = 1 See_Comment N [Automa rohit message] The BE Roberth) system which ge nerated this result transmit rohit reference range : <=2. The reference range was not used to interpr et this result as reji l/abnormal. [facility] HospitalCmdcivfQHKDUIJPO4677-47-26 17:10:00 Test Item Value Reference Range Interpretation Comments HCO3 Roberth (test code = HCO3 Roberth) 27.2 22.0-26.0 H [facility] HospitalZfffgzkHEYNECGPC3780-98-57 17:10:00 Test Item Value Reference Range Interpretation Comments pO2 Roberth (test code = pO2 Roberth) 19 20-49 L [facility] HospitalRlhcievTkfqevzwzwcn8837-42-05 14:18:00 Test Item Value Reference Range Interpretation Comments Culture: Blood (test code = Culture: Blood) [facility] HospitalHmfflkuZtfansiozzax9283-03-78 14:18:00 Test Item Value Reference Range Interpretation Comments Culture: Wound/Abscess w/Gram Stain (test code = Culture: Wound/Abscess w/Gram Stain) [facility] HospitalItqztetFFZOWXMKT9157-82-64 13:09:00 Test Item Value Reference Range Interpretation Comments Lactic Acid Lvl (test code = Lactic 1.0 0.5-2.2 N Acid Lvl) [facility] HospitalZzfvjnfSZVOVZOIZ4117-86-30 12:20:00 Test Item Value Reference Range Interpretation Comments U Preg (test code = U Negative (09/01/2011 N Preg) 07:20:00) [facility]PgcwvjwPTYQSYPQLO8549-98-54 12:20:00 Test Item Value Reference Range Interpretation Comments UA Sq Epi (test code Occasional /LPF N = UA Sq Epi) (09/01/2011 07:20:00) [facility]PgqtiopUHAPKZBYMQ3047-83-69 12:20:00 Test Item Value Reference Range Interpretation Comments UA Leuk Est (test Negative (09/01/2011 N code = UA Leuk Est) 07:20:00) [facility]villeYixcouzJLUCBNBSJO6112-28-22 12:20:00 Test Item Value Reference Range Interpretation Comments UA Nitrite (test code Negative (09/01/2011 N = UA Nitrite) 07:20:00) [facility]GlthtnqDDMNJAVWOT8757-90-31 12:20:00 Test Item Value Reference Range Interpretation Comments UA Urobilinogen (test code = UA 0.2 0.1-1.0 N Urobilinogen) [facility]villeRteepibTSXTMBZWHW7293-60-85 12:20:00 Test Item Value Reference Range Interpretation Comments UA Blood (test code = Negative (09/01/2011 N UA Blood) 07:20:00) [facility]villeFcvlvclFDBSGIBIOU4898-88-17 12:20:00 Test Item Value Reference Range Interpretation Comments UA Ketones (test code = >=80 mg/dL A UA Ketones) *ABN*(09/01/2011 07:20:00) [facility]villeFrwslzsNLAOSTPENI0872-04-65 12:20:00 Test Item Value Reference Range Interpretation Comments UA Protein (test code Negative (09/01/2011 N = UA Protein) 07:20:00) [facility]villeDstytdzQSWVBZRZST0241-36-82 12:20:00 Test Item Value Reference Range Interpretation Comments UA pH (test code = UA pH) 6.0 1 5.0-8.0 N [facility]villeIyavsddDTFXRKTGEI2162-19-46 12:20:00 Test Item Value Reference Range Interpretation Comments UA Bili (test code = Negative (09/01/2011 N UA Bili) 07:20:00) [facility]villeGvnxbdqGZPVOJPDAN9867-88-46 12:20:00 Test Item Value Reference Range Interpretation Comments UA Glucose (test code = >=1000 mg/dL A UA Glucose) *ABN*(09/01/2011 07:20:00) [facility]villeFcdsjzbFEEQGJCQQW7437-29-07 12:20:00 Test Item Value Reference Range Interpretation Comments UA Spec Grav (test code = UA Spec 1.035 1 H Grav) [facility]villeBymqvxbJVBFFQLSOL3620-77-14 12:20:00 Test Item Value Reference Range Interpretation Comments UA Turbidity (test code = Clear (09/01/2011 N UA Turbidity) 07:20:00) [facility]XujmvjfVQGZQESKEV2553-46-57 12:20:00 Test Item Value Reference Range Interpretation Comments UA Color (test code = Yellow *NA*(09/01/2011 UA Color) 07:20:00) [facility] HospitalEgfgzthVFCYLHDAO5494-94-59 08:00:00 Test Item Value Reference Range Interpretation Comments Lactic Acid Lvl (test code = Lactic 2.8 0.5-2.2 H Acid Lvl) [facility]UhcfvupQAKVJJKWD8756-34-24 07:47:00 Test Item Value Reference Range Interpretation Comments Magnesium Lvl (test code = Magnesium 1.5 1.8-2.4 L Lvl) [facility] HospitalNpgyjlsFTOLQPBODF4579-95-22 07:47:00 Test Item Value Reference Range Interpretation Comments Polychrom (test code = Slight (09/01/2011 N Polychrom) 02:47:00) [facility] CenterLytrksfIEGTFTWOZC7023-59-08 07:47:00 Test Item Value Reference Range Interpretation Comments Anisocyte (test code = 1+ *ABN*(09/01/2011 A Anisocyte) 02:47:00) [facility] CenterQoyqiamHRMMHBXUHL4805-65-07 07:47:00 Test Item Value Reference Range Interpretation Comments Large Plt (test code = Slight *ABN*(09/01/2011 A Large Plt) 02:47:00) [facility] CenterDprkmirNLIHGZCYMT8827-17-16 07:47:00 Test Item Value Reference Range Interpretation Comments Tear Cell (test code = Tear Cell) Occasional [facility] CenterTedlyrvFWRPEQLIGE4062-25-07 07:47:00 Test Item Value Reference Range Interpretation Comments Elliptocyte (test code = Slight A Elliptocyte) *ABN*(09/01/2011 02:47:00) [facility] GLUCOSE YDWTLDZ0963-29-37 17:02:00 Test Item Value Reference Range Interpretation Comments Comment1 (test code = Comment1) Notify RN/ [facility] GLUCOSE BICVIZI1382-64-28 17:02:00 Test Item Value Reference Range Interpretation Comments Gluc POC Lifscn (test code = Gluc POC 134 65-110 H Lifscn) [facility] GLUCOSE QYSYYVA6561-00-54 13:45:00 Test Item Value Reference Range Interpretation Comments Gluc POC Lifscn (test code = Gluc POC 182 65-110 H Lifscn) [facility] GLUCOSE YJXATMB1133-71-50 13:45:00 Test Item Value Reference Range Interpretation Comments Comment1 (test code = Comment1) [facility] RN/ [facility] HospitalUrghlrgPLMVRHBUY8946-98-53 10:22:00 Test Item Value Reference Range Interpretation Comments Phosphorus (test code = Phosphorus) 3.0 2.5-4.5 N [facility]JelnuymGCTMZCTQC4348-82-93 10:22:00 Test Item Value Reference Range Interpretation Comments Magnesium Lvl (test code = Magnesium 1.8 1.8-2.4 N Lvl) [facility] HospitalQyatvfbJTWCYVMIU2370-68-68 10:22:00 Test Item Value Reference Range Interpretation Comments Chloride Lvl (test code = Chloride Lvl) 107 95-109 N [facility] HospitalUhjizedHUKUCAQSD7220-26-90 10:22:00 Test Item Value Reference Range Interpretation Comments Potassium Lvl (test code = Potassium 3.0 3.5-5.1 A Lvl) [facility] HospitalSmvwhujGKKGSQGGB0525-22-80 10:22:00 Test Item Value Reference Range Interpretation Comments Sodium Lvl (test code = Sodium Lvl) 141 135-145 N [facility] HospitalLaraisgYYEYEBTLI2769-62-59 10:22:00 Test Item Value Reference Range Interpretation Comments Creatinine Lvl (test code = Creatinine 0.6 0.5-1.4 N Lvl) [facility] HospitalPoghnbxWZVGHDBEM1725-06-17 10:22:00 Test Item Value Reference Range Interpretation Comments CO2 (test code = CO2) 23 24-32 L [facility] HospitalMzpewrvPVXLUCMMQ0503-03-73 10:22:00 Test Item Value Reference Range Interpretation Comments Calcium Lvl (test code = Calcium Lvl) 7.3 8.5-10.5 L [facility] HospitalJyikmvaPUJMBZBJR7321-92-75 10:22:00 Test Item Value Reference Range Interpretation Comments Glucose Lvl (test code = Glucose Lvl) 136 [facility] HospitalYfvzaxlABNXLKMBR0839-45-69 10:22:00 Test Item Value Reference Range Interpretation Comments AGAP (test code = AGAP) 14.0 10.0-20.0 N [facility] HospitalPqmetetEMQQPJRCD5224-93-04 10:22:00 Test Item Value Reference Range Interpretation Comments BUN (test code = BUN) 5 7-22 L [facility] CenterFauhcybRUSXZNZBQW1817-87-00 10:22:00 Test Item Value Reference Range Interpretation Comments Segs (test code = Segs) 69.6 45.0-75.0 N [facility] CenterHuytehaEMLSNAXJTW9342-27-57 10:22:00 Test Item Value Reference Range Interpretation Comments Lymphocytes (test code = Lymphocytes) 21.5 20.0-40.0 N [facility] CenterXpksnlkRKLQHGXSLQ2493-63-95 10:22:00 Test Item Value Reference Range Interpretation Comments Monocytes (test code = Monocytes) 7.6 2.0-12.0 N [facility] CenterHltyyzdJFVYTAULUR6323-73-63 10:22:00 Test Item Value Reference Range Interpretation Comments Eosinophils (test code = 1.0 See_Comment N [A utomated message] The Eosinophils) system which ge nerated this result tra nsmitted reference range : <=4.0. The reference r leo was not used to int erpret this result as normal/abnormal . [facility] CenterBzzoemaFKSAGVMYHU9529-52-24 10:22:00 Test Item Value Reference Range Interpretation Comments Basophils (test code = 0.3 See_Comment N [Aut omated message] The Basophils) system which ge nerated this result tra nsmitted reference range : <=1.0. The reference r leo was not used to int erpret this result as normal/abnormal . [facility] CenterUurmtyqHBJTKBZDQQ2029-58-94 10:22:00 Test Item Value Reference Range Interpretation Comments Segs-Bands # (test code = Segs-Bands #) 4.8 1.5-8.1 N [facility] CenterCkibbxgZWZJPBMDGD9822-44-67 10:22:00 Test Item Value Reference Range Interpretation Comments Eosinophils # (test code 0.1 See_Comment N [A utomated message] The = Eosinophils #) system whic h generated this result tra nsmitted reference range : <=0.5. The reference r leo was not used to int erpret this result as normal/abnormal . [facility] CenterCrnvhuzCGLFROHWUP8180-54-77 10:22:00 Test Item Value Reference Range Interpretation Comments Lymphocytes # (test code = Lymphocytes 1.5 1.0-5.5 N #) [facility] CenterApgxjtuCHOSWCFSKM1966-82-03 10:22:00 Test Item Value Reference Range Interpretation Comments Monocytes # (test code 0.5 See_Comment N [Aut omated message] The = Monocytes #) system which generated this result tra nsmitted reference range : <=0.8. The reference r leo was not used to int erpret this result as normal/abnormal . [facility] CenterIhaqqnsNQBCSGBCHF4738-21-69 10:22:00 Test Item Value Reference Range Interpretation Comments Basophils # (test code 0.0 See_Comment N [Aut omated message] The = Basophils #) system which generated this result tra nsmitted reference range : <=0.2. The reference r leo was not used to int erpret this result as normal/abnormal . [facility] CenterZiyuudfAMXKYTYSZL3539-63-44 10:22:00 Test Item Value Reference Range Interpretation Comments MPV (test code = MPV) 11.0 7.4-10.4 H [facility] CenterStxicrgFPHLGSAADX2901-50-43 10:22:00 Test Item Value Reference Range Interpretation Comments Platelet (test code = Platelet) 161 133-450 N [facility] CenterJdemdxoYKSSZADRUN4754-51-96 10:22:00 Test Item Value Reference Range Interpretation Comments MCH (test code = MCH) 29.6 pg 27.0-31.0 N [facility] CenterAjznnttTMIKCQFFLM9851-52-66 10:22:00 Test Item Value Reference Range Interpretation Comments MCHC (test code = MCHC) 35.4 32.0-36.0 N [facility] CenterVvqobuhUMDOWCMXNN3014-12-22 10:22:00 Test Item Value Reference Range Interpretation Comments RDW (test code = RDW) 14.1 11.5-14.5 N [facility] CenterUkclorgMNUKVEGZIZ9427-04-84 10:22:00 Test Item Value Reference Range Interpretation Comments WBC (test code = WBC) 6.8 3.7-10.4 N [facility] CenterEopltbxDGMQRCDIJT0075-37-65 10:22:00 Test Item Value Reference Range Interpretation Comments MCV (test code = MCV) 83.5 81.0-99.0 N [facility] CenterHhewsszIOHEYTHMZJ7194-81-30 10:22:00 Test Item Value Reference Range Interpretation Comments RBC (test code = RBC) 4.44 4.20-5.40 N [facility] CenterEizsifgCKPTTBYYUO7666-47-84 10:22:00 Test Item Value Reference Range Interpretation Comments Hgb (test code = Hgb) 13.1 12.0-16.0 N [facility] CenterSfdakcaRAWHRUMXLZ9009-31-48 10:22:00 Test Item Value Reference Range Interpretation Comments Hct (test code = Hct) 37.1 36.0-48.0 N [facility] GLUCOSE JLNOYON2496-81-33 02:20:00 Test Item Value Reference Range Interpretation Comments Comment1 (test code = Comment1) Notify RN/MD [facility] GLUCOSE JWXKGZN0341-21-01 02:20:00 Test Item Value Reference Range Interpretation Comments Gluc POC Lifscn (test code = Gluc POC 332 65-110 H Lifscn) [facility] HospitalMxokzvsOJEMRBTXZ7713-21-76 09:47:00 Test Item Value Reference Range Interpretation Comments Phosphorus (test code = Phosphorus) 2.5 2.5-4.5 N [facility] HospitalTycoepnXRKPPEXWM0263-68-71 09:47:00 Test Item Value Reference Range Interpretation Comments Glucose Lvl (test code = Glucose Lvl) 201 [facility] HospitalBuvmoqrNXYOHBIBO5852-39-14 09:47:00 Test Item Value Reference Range Interpretation Comments BUN (test code = BUN) 7 7-22 N [facility] HospitalZvyorvjMHJXNDDLN5141-78-09 09:47:00 Test Item Value Reference Range Interpretation Comments CO2 (test code = CO2) 19 24-32 L [facility] HospitalFeuxcpnQYZAAQBGM5636-13-52 09:47:00 Test Item Value Reference Range Interpretation Comments Creatinine Lvl (test code = Creatinine 0.3 0.5-1.4 L Lvl) [facility] HospitalDuqasjcLQTFYUZZV2922-74-07 09:47:00 Test Item Value Reference Range Interpretation Comments Sodium Lvl (test code = Sodium Lvl) 137 135-145 N [facility] HospitalNdwmfavICJEMPJZP3142-86-96 09:47:00 Test Item Value Reference Range Interpretation Comments Chloride Lvl (test code = Chloride Lvl) 103 95-109 N [facility] HospitalEwrbktvGWMSBJYHL1983-95-53 09:47:00 Test Item Value Reference Range Interpretation Comments Potassium Lvl (test code = Potassium 3.6 3.5-5.1 N Lvl) [facility] HospitalAzcccwuCIKONBCQA2538-98-55 09:47:00 Test Item Value Reference Range Interpretation Comments Calcium Lvl (test code = Calcium Lvl) 7.9 8.5-10.5 L [facility] HospitalSkdidvxBFIONOOWD8046-17-20 09:47:00 Test Item Value Reference Range Interpretation Comments AGAP (test code = AGAP) 18.6 10.0-20.0 N [facility] HospitalUkmuoisGJVXRQMYP8625-42-09 09:47:00 Test Item Value Reference Range Interpretation Comments Magnesium Lvl (test code = Magnesium 1.6 1.8-2.4 L Lvl) [facility] CenterVdzknejPYKZRGIAGG7984-05-76 09:47:00 Test Item Value Reference Range Interpretation Comments Basophils # (test code 0.0 See_Comment N [Aut omated message] The = Basophils #) system which generated this result tra nsmitted reference range : <=0.2. The reference r leo was not used to int erpret this result as normal/abnormal . [facility] CenterQtbrwqsGHXVXFPZOI8104-40-67 09:47:00 Test Item Value Reference Range Interpretation Comments Eosinophils (test code = 0.4 See_Comment N [A utomated message] The Eosinophils) system which ge nerated this result tra nsmitted reference range : <=4.0. The reference r leo was not used to int erpret this result as normal/abnormal . [facility] CenterSawydxtPXKWSZKIUY5140-08-88 09:47:00 Test Item Value Reference Range Interpretation Comments Basophils (test code = 0.5 See_Comment N [Aut omated message] The Basophils) system which ge nerated this result tra nsmitted reference range : <=1.0. The reference r leo was not used to int erpret this result as normal/abnormal . [facility] CenterDmorkeaSWMFQJINOT6683-32-87 09:47:00 Test Item Value Reference Range Interpretation Comments Segs-Bands # (test code = Segs-Bands #) 5.9 1.5-8.1 N [facility] CenterWncqjatWZJSMQRLRH0189-96-42 09:47:00 Test Item Value Reference Range Interpretation Comments Lymphocytes # (test code = Lymphocytes 1.2 1.0-5.5 N #) [facility] CenterBwmzowjNDCPYYSPIV1164-35-99 09:47:00 Test Item Value Reference Range Interpretation Comments Monocytes # (test code 0.5 See_Comment N [Aut omated message] The = Monocytes #) system which generated this result tra nsmitted reference range : <=0.8. The reference r leo was not used to int erpret this result as normal/abnormal . [facility] CenterVoxcgovNSURXPUSUR0651-62-82 09:47:00 Test Item Value Reference Range Interpretation Comments Eosinophils # (test code 0.0 See_Comment N [A utomated message] The = Eosinophils #) system whic h generated this result tra nsmitted reference range : <=0.5. The reference r leo was not used to int erpret this result as normal/abnormal . [facility] CenterCafufoeQRQGEAKWRU5125-23-96 09:47:00 Test Item Value Reference Range Interpretation Comments Segs (test code = Segs) 76.9 45.0-75.0 H [facility] CenterDyrytfsNBVFQLWEYZ7806-65-35 09:47:00 Test Item Value Reference Range Interpretation Comments Lymphocytes (test code = Lymphocytes) 15.9 20.0-40.0 [facility]AhtosdfNYGOOTLJID2337-79-50 09:47:00 Test Item Value Reference Range Interpretation Comments Monocytes (test code = Monocytes) 6.3 2.0-12.0 N [facility] CenterBaewpgtSMBISRJJTO3832-04-10 09:47:00 Test Item Value Reference Range Interpretation Comments MCV (test code = MCV) 82.8 81.0-99.0 N [place] 540182-03-03 09:47:00 Test Item Value Reference Range Interpretation Comments Hct (test code = Hct) 39.7 36.0-48.0 N [facility] CenterVhafksnXPFHUXMQFI4671-31-67 09:47:00 Test Item Value Reference Range Interpretation Comments MCH (test code = MCH) 29.1 pg 27.0-31.0 N [facility] CenterYdjandqJKEZVSQLCM3201-07-23 09:47:00 Test Item Value Reference Range Interpretation Comments Hgb (test code = Hgb) 14.0 12.0-16.0 N [facility] CenterFaihtxkQAUKBPXJSG5241-35-79 09:47:00 Test Item Value Reference Range Interpretation Comments MCHC (test code = MCHC) 35.2 32.0-36.0 N [facility] CenterTmzscjaECTFBLWLKD3145-11-60 09:47:00 Test Item Value Reference Range Interpretation Comments RDW (test code = RDW) 13.9 11.5-14.5 N [facility] CenterHlqzdjnMSLPNHBERJ8192-77-69 09:47:00 Test Item Value Reference Range Interpretation Comments Platelet (test code = Platelet) 160 133-450 N [facility] CenterQrfrspdRDZBWHLGSW7483-80-88 09:47:00 Test Item Value Reference Range Interpretation Comments MPV (test code = MPV) 11.9 7.4-10.4 H [facility] CenterHchinjmADXXMUSPVX0455-54-36 09:47:00 Test Item Value Reference Range Interpretation Comments WBC (test code = WBC) 7.7 3.7-10.4 N [facility] CenterWgzhcquJFYZCPZVYA3305-33-60 09:47:00 Test Item Value Reference Range Interpretation Comments RBC (test code = RBC) 4.80 4.20-5.40 N [facility]WsuqcsdMUZAIXHZV2430-47-03 10:28:00 Test Item Value Reference Range Interpretation Comments Phosphorus (test code = Phosphorus) 2.6 2.5-4.5 N [facility] HospitalXqcvintLKTIBCILX9775-09-32 10:28:00 Test Item Value Reference Range Interpretation Comments Magnesium Lvl (test code = Magnesium 1.8 1.8-2.4 N Lvl) [facility] HospitalRqoippeOYUANKWSZ7136-57-16 10:28:00 Test Item Value Reference Range Interpretation Comments Potassium Lvl (test code = Potassium 3.7 3.5-5.1 N Lvl) [facility] HospitalRbdiweoWZBOVNQRM6289-27-79 10:28:00 Test Item Value Reference Range Interpretation Comments Sodium Lvl (test code = Sodium Lvl) 137 135-145 N [facility] HospitalHiwbfkySYAOTQAUZ5799-57-63 10:28:00 Test Item Value Reference Range Interpretation Comments Creatinine Lvl (test code = Creatinine 0.6 0.5-1.4 N Lvl) [facility] HospitalYiesxreATRJBIMQA8710-92-51 10:28:00 Test Item Value Reference Range Interpretation Comments BUN (test code = BUN) 16 7-22 N [facility] HospitalFwxvjeqGRWGFPOVX2143-54-77 10:28:00 Test Item Value Reference Range Interpretation Comments Glucose Lvl (test code = Glucose Lvl) 200 [facility] HospitalFfrljgwATKFALRDE6507-32-76 10:28:00 Test Item Value Reference Range Interpretation Comments Calcium Lvl (test code = Calcium Lvl) 8.3 8.5-10.5 L [facility] HospitalDnvgpkdFKNEEHDIO8018-88-21 10:28:00 Test Item Value Reference Range Interpretation Comments AGAP (test code = AGAP) 19.7 10.0-20.0 N [facility] HospitalNonlkzxLQXPYPKAB2060-72-56 10:28:00 Test Item Value Reference Range Interpretation Comments Chloride Lvl (test code = Chloride Lvl) 99 95-109 N [facility] HospitalQbkkwcnRJEFFCRSU3013-68-10 10:28:00 Test Item Value Reference Range Interpretation Comments CO2 (test code = CO2) 22 24-32 L [facility] CenterPufliitVHUCULDGML7833-92-80 10:28:00 Test Item Value Reference Range Interpretation Comments Platelet (test code = Platelet) 172 133-450 N [facility] CenterShkyeluPCTFZXFTLX4430-06-36 10:28:00 Test Item Value Reference Range Interpretation Comments MPV (test code = MPV) 12.0 7.4-10.4 H [facility] CenterDupauxgKQNKOJGZKS3871-84-29 10:28:00 Test Item Value Reference Range Interpretation Comments WBC (test code = WBC) 7.3 3.7-10.4 N [facility] CenterZgemsqqVPBJRSQOTA2941-31-53 10:28:00 Test Item Value Reference Range Interpretation Comments RDW (test code = RDW) 14.6 11.5-14.5 H [facility] CenterIxqpiwjYOCWIEBFSQ1449-69-37 10:28:00 Test Item Value Reference Range Interpretation Comments MCHC (test code = MCHC) 35.0 32.0-36.0 N [facility] CenterAghhhstAFKRSVZTFJ8340-52-84 10:28:00 Test Item Value Reference Range Interpretation Comments RBC (test code = RBC) 4.54 4.20-5.40 N [facility] CenterBtnttpdRQLEJTUGMQ2934-53-38 10:28:00 Test Item Value Reference Range Interpretation Comments Hct (test code = Hct) 37.6 36.0-48.0 N [facility] CenterAfvhsgzSREDATOIIB1718-83-44 10:28:00 Test Item Value Reference Range Interpretation Comments MCV (test code = MCV) 82.9 81.0-99.0 N [facility] CenterMtzstzeVUIWQMQDZC3106-25-88 10:28:00 Test Item Value Reference Range Interpretation Comments MCH (test code = MCH) 29.0 pg 27.0-31.0 N [facility] CenterBkyngkxBEBYDZMFRB1288-90-50 10:28:00 Test Item Value Reference Range Interpretation Comments Hgb (test code = Hgb) 13.2 12.0-16.0 N [facility] CenterSuxvwhcWYOJUFGWWK0660-16-90 10:28:00 Test Item Value Reference Range Interpretation Comments Elliptocyte (test code = Slight A Elliptocyte) *ABN*(08/21/2011 04:28:00) [facility] CenterPaydsluHACAGJHSGJ1545-76-45 10:28:00 Test Item Value Reference Range Interpretation Comments Polychrom (test code = Slight (08/21/2011 N Polychrom) 04:28:00) [facility] CenterEyjhyktOLNHPUWQCB8222-44-22 10:28:00 Test Item Value Reference Range Interpretation Comments Basophils # (test code 0.0 See_Comment N [Aut omated message] The = Basophils #) system which generated this result tra nsmitted reference range : <=0.2. The reference r leo was not used to int erpret this result as normal/abnormal . [facility] CenterQrwekalRJRQYTBKLR6110-88-68 10:28:00 Test Item Value Reference Range Interpretation Comments Hypochrom (test code = Slight (08/21/2011 N Hypochrom) 04:28:00) [facility] CenterBgvaapkITTMVPSQEN3767-94-08 10:28:00 Test Item Value Reference Range Interpretation Comments Monocytes # (test code 0.6 See_Comment N [Aut omated message] The = Monocytes #) system which generated this result tra nsmitted reference range : <=0.8. The reference r leo was not used to int erpret this result as normal/abnormal . [facility] CenterDxfzltnJDTBCHCAMC5211-18-44 10:28:00 Test Item Value Reference Range Interpretation Comments Eosinophils # (test code 0.0 See_Comment N [A utomated message] The = Eosinophils #) system whic h generated this result tra nsmitted reference range : <=0.5. The reference r leo was not used to int erpret this result as normal/abnormal . [facility] CenterVkczhtgBQSSRAXDDX8858-23-40 10:28:00 Test Item Value Reference Range Interpretation Comments Segs-Bands # (test code = Segs-Bands #) 5.3 1.5-8.1 N [facility] CenterDunutflXIQIHAKKGC9008-75-42 10:28:00 Test Item Value Reference Range Interpretation Comments Lymphocytes # (test code = Lymphocytes 1.3 1.0-5.5 N #) [facility] CenterHxzygxvHFSJYNKPVJ6950-81-79 10:28:00 Test Item Value Reference Range Interpretation Comments Basophils (test code = 0.5 See_Comment N [Aut omated message] The Basophils) system which ge nerated this result tra nsmitted reference range : <=1.0. The reference r leo was not used to int erpret this result as normal/abnormal . [facility] CenterRnpdwijDLMPOOKYQC1173-32-73 10:28:00 Test Item Value Reference Range Interpretation Comments Monocytes (test code = Monocytes) 8.5 2.0-12.0 N [facility] CenterKnhjrlgOERTKZZFUB9775-25-12 10:28:00 Test Item Value Reference Range Interpretation Comments Eosinophils (test code = 0.3 See_Comment N [A utomated message] The Eosinophils) system which ge nerated this result tra nsmitted reference range : <=4.0. The reference r leo was not used to int erpret this result as normal/abnormal . [facility] CenterZcgkwykHJZEBSZEBT7509-97-14 10:28:00 Test Item Value Reference Range Interpretation Comments Lymphocytes (test code = Lymphocytes) 17.3 20.0-40.0 L [facility]YzyjrjxZDFBBBCAZN2374-54-63 10:28:00 Test Item Value Reference Range Interpretation Comments Segs (test code = Segs) 73.4 45.0-75.0 N [facility] GLUCOSE RSQXARB3541-02-90 07:47:00 Test Item Value Reference Range Interpretation Comments Comment2 (test code = Comment2) Verify w/Lab [facility] HospitalXgmggkuLNORIXFFD3836-86-25 21:58:00 Test Item Value Reference Range Interpretation Comments S Preg (test code = S Negative (08/19/2011 N Preg) 15:58:00) [facility] HospitalGemfsjmDJEQLHBHJ1625-79-41 21:58:00 Test Item Value Reference Range Interpretation Comments Lipase Lvl (test code = Lipase Lvl) 169 73-393 N [facility] HospitalIjojnkqLPSCZUZXP2520-72-47 21:58:00 Test Item Value Reference Range Interpretation Comments ALT (test code = ALT) 54 See_Comment N [Auto mated message] The system which ge nerated this result transmit rohit reference range : <=65. The reference range was not used to interpr et this result as reji l/abnormal. [facility] HospitalYoxftkuVXYBWJKKL3581-12-70 21:58:00 Test Item Value Reference Range Interpretation Comments Alk Phos (test code = Alk Phos) 110 39-136 N [facility] HospitalVybmfafMHCQEYFWQ4423-95-02 21:58:00 Test Item Value Reference Range Interpretation Comments Bili Direct (test code 0.1 See_Comment N [Aut omated message] The = Bili Direct) system which generated this result tra nsmitted reference range : <=0.3. The reference r leo was not used to int erpret this result as reji l/abnormal. [facility] HospitalQyozungROWVRORIV2147-83-23 21:58:00 Test Item Value Reference Range Interpretation Comments Bili Total (test code = Bili Total) 0.9 0.2-1.3 N [facility] HospitalFofjopvGCIEOHCHG7606-13-18 21:58:00 Test Item Value Reference Range Interpretation Comments Albumin Lvl (test code = Albumin Lvl) 4.4 3.5-5.0 N [facility] HospitalOrtjbbbXUJEFGAEG2953-13-34 21:58:00 Test Item Value Reference Range Interpretation Comments Total Protein (test code = Total 8.8 6.4-8.4 H Protein) [facility] HospitalPxtwpmyOLBTWFZIZ2346-73-27 21:58:00 Test Item Value Reference Range Interpretation Comments Bili Indirect (test 0.8 See_Comment N [Automa rohit message] The code = Bili Indirect) system which generated this result tra nsmitted reference range : <=1.0. The reference r leo was not used to int erpret this result as normal/abnormal . [facility] HospitalAjewotgSQALCQADT4418-35-41 21:58:00 Test Item Value Reference Range Interpretation Comments AST (test code = AST) 36 See_Comment N [Auto mated message] The system which ge nerated this result transmit rohit reference range : <=37. The reference range was not used to interpr et this result as reji l/abnormal. [facility] HospitalPctffrcSCIEUDQLF3883-73-33 21:58:00 Test Item Value Reference Range Interpretation Comments Globulin (test code = Globulin) 4.4 2.0-4.0 H [facility] HospitalVbhiyrdVWGSAPVBK7711-31-17 21:58:00 Test Item Value Reference Range Interpretation Comments A/G Ratio (test code = A/G Ratio) 1.0 0.7-1.6 N [facility]PxppregMHGLMQBFKH6872-78-84 21:58:00 Test Item Value Reference Range Interpretation Comments UA Bacteria (test code Occasional /HPF N = UA Bacteria) (08/19/2011 15:58:00) [facility]HtojaqqQUSIHMWRGV9499-57-08 21:58:00 Test Item Value Reference Range Interpretation Comments UA RBC (test 3-5 /HPF See_Comment A [Automated mes pastor] code = UA RBC) *ABN*(08/19/2011 The syste m which 15:58:00) generated this result transmitted ref erence range: <=2. The reference range was not used to int erpret this result as normal/abnormal . [facility] TexasGupclcsLEVNJCFDZX6539-39-19 21:58:00 Test Item Value Reference Range Interpretation Comments UA WBC (test code = 3 See_Comment [Automa rohit message] The UA WBC) system which ge nerated this result transmit rohit reference range : <=5. The reference range was not used to interpr et this result as reji l/abnormal. [facility] HospitalIvvwsbkLLYVUUKLSK9215-36-85 21:58:00 Test Item Value Reference Range Interpretation Comments UA Mucus (test code = Few /LPF (08/19/2011 N UA Mucus) 15:58:00) [facility]NcfhbxiDOZGUACNRX8081-75-95 21:58:00 Test Item Value Reference Range Interpretation Comments UA Amorph Destiny (test Occasional /HPF A code = UA Amorph *ABN*(08/19/2011 Destiny) 15:58:00) [facility]villeNqpsolmXNDIATUPMH2920-97-49 21:58:00 Test Item Value Reference Range Interpretation Comments UA Urobilinogen (test code = UA 0.2 0.1-1.0 N Urobilinogen) [facility]villeKjlwukoVDJVMXJFDW2089-83-13 21:58:00 Test Item Value Reference Range Interpretation Comments UA Sq Epi (test code = Rare /LPF (08/19/2011 N UA Sq Epi) 15:58:00) [facility]villeUhbtvatLDLAFPSZUL7096-87-57 21:58:00 Test Item Value Reference Range Interpretation Comments Micro? (test code = Performed (08/19/2011 N Micro?) 15:58:00) [facility] HospitalIepopluESCYAIDGGA3422-67-93 21:58:00 Test Item Value Reference Range Interpretation Comments UA Leuk Est (test Negative (08/19/2011 N code = UA Leuk Est) 15:58:00) [facility] HospitalClmoaxtDVGJPZZOSH5392-95-11 21:58:00 Test Item Value Reference Range Interpretation Comments UA Nitrite (test code Negative (08/19/2011 N = UA Nitrite) 15:58:00) [facility] HospitalCutgfovZNBXHOMRQO7009-98-00 21:58:00 Test Item Value Reference Range Interpretation Comments UA pH (test code = UA pH) 5.5 1 5.0-8.0 N [facility] HospitalKrioevbNPHSNOECPD2676-49-50 21:58:00 Test Item Value Reference Range Interpretation Comments UA Blood (test code = Trace *ABN*(08/19/2011 A UA Blood) 15:58:00) [facility] HospitalUexeplmWYJSPHUHOZ3974-96-16 21:58:00 Test Item Value Reference Range Interpretation Comments UA Bili (test code = Negative (08/19/2011 N UA Bili) 15:58:00) [facility] TexasGjgpntiARBKEZKBEK4241-66-54 21:58:00 Test Item Value Reference Range Interpretation Comments UA Ketones (test code = 80 mg/dL A UA Ketones) *ABN*(08/19/2011 15:58:00) [facility] TexasCuzxlrcWQCRXYDKLV7906-31-76 21:58:00 Test Item Value Reference Range Interpretation Comments UA Glucose (test code = >=1000 mg/dL A UA Glucose) *ABN*(08/19/2011 15:58:00) [facility] TexasRaxrzrrMIQREKOOHN2012-41-31 21:58:00 Test Item Value Reference Range Interpretation Comments UA Protein (test code Negative (08/19/2011 N = UA Protein) 15:58:00) [facility] TexasWnvfhnbCUCRORSWXL1778-38-18 21:58:00 Test Item Value Reference Range Interpretation Comments UA Turbidity (test code Slight Cloudy N = UA Turbidity) (08/19/2011 15:58:00) [facility] TexasUfijdilJEYSCCIQSH0730-50-98 21:58:00 Test Item Value Reference Range Interpretation Comments UA Spec Grav (test code = UA Spec 1.025 1 Grav) [facility] TexasZrdddqnBOAQOPNENE3626-61-32 21:58:00 Test Item Value Reference Range Interpretation Comments UA Color (test code = Yellow (08/19/2011 N UA Color) 15:58:00) [facility] HospitalEngxagsOHMUTQHMQ9984-87-97 21:13:00 Test Item Value Reference Range Interpretation Comments AST (test code = AST) 23 See_Comment N [Auto mated message] The system which ge nerated this result transmit rohit reference range : <=37. The reference range was not used to interpr et this result as reji l/abnormal. [facility] HospitalPvgxqrmZVNVNTEAE8554-94-20 21:13:00 Test Item Value Reference Range Interpretation Comments Bili Total (test code = Bili Total) 1.0 0.2-1.3 N [facility] HospitalDneqnvsIANULZBYH0248-33-37 21:13:00 Test Item Value Reference Range Interpretation Comments Alk Phos (test code = Alk Phos) 115 39-136 N [facility] HospitalLyxalhuLMNMPLOPY9895-09-83 21:13:00 Test Item Value Reference Range Interpretation Comments ALT (test code = ALT) 56 See_Comment N [Auto mated message] The system which ge nerated this result transmit rohit reference range : <=65. The reference range was not used to interpr et this result as reji l/abnormal. [facility] HospitalKbaqtccPAHBYPKWK4448-83-32 21:13:00 Test Item Value Reference Range Interpretation Comments Total Protein (test code = Total 9.0 6.4-8.4 H Protein) [facility] HospitalCoeydwmSOPUFKEKU5744-48-81 21:13:00 Test Item Value Reference Range Interpretation Comments Albumin Lvl (test code = Albumin Lvl) 4.8 3.5-5.0 N [facility] HospitalVpwcdxmIRYTHPZSV5622-56-37 21:13:00 Test Item Value Reference Range Interpretation Comments Globulin (test code = Globulin) 4.2 2.0-4.0 H [facility] HospitalFgfurmoSBLCEGKCP2570-66-53 21:13:00 Test Item Value Reference Range Interpretation Comments A/G Ratio (test code = A/G Ratio) 1.1 0.7-1.6 N [facility] HospitalYumtqayDEOOICIYO5182-34-57 21:13:00 Test Item Value Reference Range Interpretation Comments B/C Ratio (test code = B/C Ratio) 30 6-25 H [facility] CenterAdeglolBIGNCLFPNJ9790-86-98 21:13:00 Test Item Value Reference Range Interpretation Comments RBC Morph (test code = Normal (08/19/2011 N RBC Morph) 15:13:00) [facility] CenterCptuwzeUGQWJLKNLL5018-05-50 21:13:00 Test Item Value Reference Range Interpretation Comments Large Plt (test code = Slight *ABN*(08/19/2011 A Large Plt) 15:13:00) [facility] CenterZrhohdvDXWHYVSSPA4528-12-48 21:13:00 Test Item Value Reference Range Interpretation Comments Atypical Lymphs (test code = Atypical 0.0 N Lymphs) [facility] CenterCbymboiVLBAFLVWRO2532-27-08 21:13:00 Test Item Value Reference Range Interpretation Comments Bands (test code = 0.0 See_Comment N [Automat ed message] The Bands) system which ge nerated this result transmit rohit reference range : <=11.0. The reference r leo was not used to interpr et this result as reji l/abnormal. [facility] HospitalApzncsoVXSGHSFEG0241-08-00 21:10:00 Test Item Value Reference Range Interpretation Comments O2 Sat Roberth (test code = O2 Sat Roberth) 74.0 40.0-70.0 H [facility] HospitalEmmyfpfQIGYIDKUX5612-96-34 21:10:00 Test Item Value Reference Range Interpretation Comments Temp Roberth (test code = Temp Roberth) 37.0 [facility] HospitalBcylwonQAMVCQQGH7106-48-92 21:10:00 Test Item Value Reference Range Interpretation Comments pO2 Roberth (test code = pO2 Roberth) 42 20-49 N [facility] HospitalMyldezsHHEWXJDYH3082-68-36 21:10:00 Test Item Value Reference Range Interpretation Comments HCO3 Roberth (test code = HCO3 Roberth) 17.3 22.0-26.0 L [facility] HospitalQheunmrYZCTKJVHC5659-21-78 21:10:00 Test Item Value Reference Range Interpretation Comments pH Roberth (test code = pH Roberth) 7.34 7.28-7.42 N [facility] HospitalPykjapuYTBPCWICY4501-93-39 21:10:00 Test Item Value Reference Range Interpretation Comments pCO2 Roberth (test code = pCO2 Roberth) 32 38-52 L [facility] HospitalBtcllbiNYXBSVCTQ3912-10-38 21:10:00 Test Item Value Reference Range Interpretation Comments BE Roberth (test code = -7 See_Comment L [Automa rohit message] The BE Roberth) system which ge nerated this result transmit rohit reference range : <=2. The reference range was not used to interpr et this result as reji l/abnormal. [facility] HospitalYxchodlNNWNPWJRQQ7039-13-89 20:34:00 Test Item Value Reference Range Interpretation Comments CDC-HIV 1/2 Ab (test Negative *NA*(08/19/2011 code = CDC-HIV 1/2 14:34:00) Ab) [facility]
[2022-03-23] MEDS ORDERED: PROMETHAZINE 25 MG/SUPP PR ONE (14:44)
[2022-03-23] MEDS ORDERED: ERYTHROMYCIN BASE 250 MG TAB PO ONE (15:00)
--- NOTE | 2022-03-23 15:26 | EDPHYS ---
Physician Documentation [facility] Name: Cathi Zaldivar Age: 41 yrs Sex: Female : 1980 Arrival Date: 03/23/2022 Time: 13:52 Bed 23 Private MD: ED Physician Rasta Diaz HPI: 03/23 14:53 This 41 yrs old Female presents to ER via Wheelchair with complaints of snw Abdominal Pain. 14:53 The patient presents with abdominal pain in the upper abdomen. Onset: The snw symptoms/episode began/occurred acutely. The symptoms do not radiate. Associated signs and symptoms: Pertinent positives: vomiting, Pertinent negatives: blood in stools, diarrhea, vomiting blood. The symptoms are described as burning, crampy. Severity of pain: At its worst the pain was moderate in the emergency department the pain is unchanged. The patient has experienced similar episodes in the past, chronically. MANAGER ACQUISITION: 14:10 LMP N/A - Irregular menses ap3 Historical: - Allergies: 14:08 ambien; ap3 14:08 Codeine; ap3 14:08 GUAIFENESIN; ap3 14:08 Lisinopril; ap3 14:08 Morphine; ap3 14:08 Nitrofurantoin Macrocrystal; ap3 14:08 PENICILLINS; ap3 14:08 Prolixin; ap3 14:08 zolpidem tartrate; ap3 - PMHx: 14:08 "mental problems"; CHF; chronic kidney disease; cyclic vomiting syndrome; Diabetes - ap3 NIDDM; Dialysis; m-w-f; ENCEPHALOPATHY; Gastroparesis; Hypertension; ibs; liver failure; PERIPHERAL NEUROPATHY; pseudo aneurysm R groin; Seizures; - PSHx: 14:08 section; dialysis catheter R chest wall; eye removed; ap3 - Immunization history:: Client reports having NOT received the Covid vaccine. Flu vaccine is up to date. - Social history:: Smoking status: Patient reports the use of cigarette tobacco products, denies chronic smoking, but will smoke occasionally. ROS: 14:52 Eyes: Negative for injury, pain, redness, and discharge, ENT: Negative for injury, snw pain, and discharge, Neck: Negative for injury, pain, and swelling, Cardiovascular: Negative for chest pain, palpitations, and edema, Respiratory: Negative for shortness of breath, cough, wheezing, and pleuritic chest pain. 14:52 Back: Negative for injury and pain, : Negative for injury, bleeding, discharge, and swelling, MS/Extremity: Negative for injury and deformity, Skin: Negative for injury, rash, and discoloration, Neuro: Negative for headache, weakness, numbness, tingling, and seizure. 14:52 Constitutional: Positive for malaise, poor PO intake. 14:52 Abdomen/GI: Positive for abdominal pain, vomiting. Exam: 14:52 Constitutional: This is a well developed, well nourished patient who is awake, alert, snw and in no acute distress. Head/Face: Normocephalic, atraumatic. Eyes: Pupils equal round and reactive to light, extra-ocular motions intact. Lids and lashes normal. Conjunctiva and sclera are non-icteric and not injected. Cornea within normal limits. Periorbital areas with no swelling, redness, or edema. ENT: Nares patent. No nasal discharge, no septal abnormalities noted. Tympanic membranes are normal and external auditory canals are clear. Oropharynx with no redness, swelling, or masses, exudates, or evidence of obstruction, uvula midline. Mucous membranes moist. Neck: Trachea midline, no thyromegaly or masses palpated, and no cervical lymphadenopathy. Supple, full range of motion without nuchal rigidity, or vertebral point tenderness. No Meningismus. Chest/axilla: Normal chest wall appearance and motion. Nontender with no deformity. No lesions are appreciated. Cardiovascular: Regular rate and rhythm with a normal S1 and S2. No gallops, murmurs, or rubs. Normal PMI, no JVD. No pulse deficits. Respiratory: Lungs have equal breath sounds bilaterally, clear to auscultation and percussion. No rales, rhonchi or wheezes noted. No increased work of breathing, no retractions or nasal flaring. Back: No spinal tenderness. No costovertebral tenderness. Full range of motion. 14:52 Skin: Warm, dry with normal turgor. Normal color with no rashes, no lesions, and no evidence of cellulitis. MS/ Extremity: Pulses equal, no cyanosis. Neurovascular intact. Full, normal range of motion. Neuro: Awake and alert, GCS 15, oriented to person, place, time, and situation. Cranial nerves II-XII grossly intact. Motor strength 5/5 in all extremities. Sensory grossly intact. Cerebellar exam normal. Normal gait. 14:52 Abdomen/GI: Inspection: abdomen appears normal, Bowel sounds: normal, Palpation: mild abdominal tenderness, moderate abdominal tenderness, in the right upper quadrant and left upper quadrant. Vital Signs: 14:06 BP 223 / 106; Pulse 79; Resp 17; Temp 97.8(O); Pulse Ox 100% ; Weight 74.7 kg; Height 5 ap3 ft. 1 in. (154.94 cm); 15:00 BP 225 / 89; Pulse 80; Resp 18; Pulse Ox 100% ; kb3 14:06 Body Mass Index 31.12 (74.70 kg, 154.94 cm) ap3 MDM: 14:20 Patient medically screened. snw 14:53 Data reviewed: vital signs, nurses notes. Data interpreted: Pulse oximetry: on room air snw is 100 %. Interpretation: normal. ED course: Pt missed dialysis today . 15:20 Counseling: I had a detailed discussion with the patient and/or guardian regarding: the snw historical points, exam findings, and any diagnostic results supporting the discharge/admit diagnosis, the presence of at least one elevated blood pressure reading (>120/80) during this emergency department visit. 03/23 14:29 Order name: Flu snw 03/23 14:29 Order name: SARS RAPID snw 03/23 15:29 Order name: Influenza Screen (A ; Complete Time: 15:31 EDMS 03/23 15:29 Order name: SARS-COV-2 Antigen Rapid; Complete Time: 15:31 EDMS Administered Medications: 14:55 Drug: Phenergan (promethazine) Suppository 50 mg Route: IL; kb3 15:38 Follow up: Response: No adverse reaction; Nausea is decreased; Vomiting decreased kb3 15:15 Drug: ERYTHromycin 500 mg Route: PO; kb3 15:39 Follow up: Response: No adverse reaction kb3 15:38 Drug: Valium (diazepam) 5 mg Route: IM; Site: left ventrogluteal; kb3 16:00 Follow up: Response: No adverse reaction; Pain is decreased; Anxiety decreased kb3 Disposition: 17:26 PA/CONSULTING PRACTICE DIRECTOR's history reviewed, patient interviewed, and examined. I agree with assessment [id number] and care plan and confirm the diagnosis (es) above. Attestation: The patient's history, exam findings, diagnostics, and a summary of any interventions or procedures was reviewed in detail with Analia PRETTY. Disposition Summary: 03/23/22 15:26 Discharge Ordered Location: Home snw Condition: Stable snw Diagnosis - Patient's noncompliance with renal dialysis snw - Gastroparesis snw Followup: snw - With: Emergency Department - When: As needed - Reason: Worsening of condition Followup: snw - With: Private Physician - When: Today - Reason: Recheck today's complaints, Continuance of care, Re-evaluation by your physician Discharge Instructions: - Discharge Summary Sheet snw - Gastroparesis snw - Eating Plan for Dialysis snw Forms: - Medication Reconciliation Form snw - Thank You Letter snw - Antibiotic Education snw - Prescription Opioid Use snw Prescriptions: - promethazine 25 mg Rectal suppository - insert 1 suppository by RECTAL route 2 times per day; 6 suppository; Refills: snw 0, Product Selection Permitted - Erythromycin 500 mg Oral Tablet - take 1 tablet by ORAL route At bedtime for 30 days; 30 tablet; Refills: 0, snw Product Selection Permitted Signatures: Dispatcher [employer] Analia Gonzáles FNP-C [employer] SUPERVISOR-Csnw Radha Florez, RN RN ap3 Rasta Diaz MD MD [id number] Olga Landers RN RN kb3
--- NOTE | 2022-03-23 15:26 | ER ---
Nurse's Notes [facility] Name: Cathi Zaldivar Age: 41 yrs Sex: Female : 1980 Arrival Date: 03/23/2022 Time: 13:52 Bed 23 Private MD: Diagnosis: Patient's noncompliance with renal dialysis;Gastroparesis Presentation: 03/23 14:06 Chief complaint: Patient states: she is having a "flare up of her gastroparesis". ap3 Patient reports that she started having abdominal pain yesterday, 03/22/2022 along with nausea and vomiting. Coronavirus screen: At this time, the client does not indicate any symptoms associated with coronavirus-19. Ebola Screen: No symptoms or risks identified at this time. Initial Sepsis Screen: Does the patient meet any 2 criteria? No. Patient's initial sepsis screen is negative. Does the patient have a suspected source of infection? No. Patient's initial sepsis screen is negative. Risk Assessment: Do you want to hurt yourself or someone else? Patient reports no desire to harm self or others. Onset of symptoms was March 22, 2022. 14:06 Method Of Arrival: Wheelchair ap3 14:06 Acuity: JESSICA 2 ap3 Triage Assessment: 14:08 General: Appears uncomfortable, Behavior is crying. Pain: Complains of pain in abdomen ap3 Pain began gradually, 1 day ago. Also complains of nausea. Neuro: Level of Consciousness is awake, alert, obeys commands, Oriented to person, place, time, situation, Speech is normal. Cardiovascular: Patient's skin is warm and dry. Cardiovascular: Dialysis shunt: in the right arm. Respiratory: Airway is patent Respiratory effort is even, unlabored, Respiratory pattern is regular, symmetrical. GI: Reports lower abdominal pain, upper abdominal pain, nausea, vomiting. :. Derm:. 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: 14:10 LMP N/A - Irregular menses ap3 Historical: - Allergies: 14:08 ambien; ap3 14:08 Codeine; ap3 14:08 GUAIFENESIN; ap3 14:08 Lisinopril; ap3 14:08 Morphine; ap3 14:08 Nitrofurantoin Macrocrystal; ap3 14:08 PENICILLINS; ap3 14:08 Prolixin; ap3 14:08 zolpidem tartrate; ap3 - PMHx: 14:08 "mental problems"; CHF; chronic kidney disease; cyclic vomiting syndrome; Diabetes - ap3 NIDDM; Dialysis; m-w-f; ENCEPHALOPATHY; Gastroparesis; Hypertension; ibs; liver failure; PERIPHERAL NEUROPATHY; pseudo aneurysm R groin; Seizures; - PSHx: 14:08 section; dialysis catheter R chest wall; eye removed; ap3 - Immunization history:: Client reports having NOT received the Covid vaccine. Flu vaccine is up to date. - Social history:: Smoking status: Patient reports the use of cigarette tobacco products, denies chronic smoking, but will smoke occasionally. Screenin:10 Abuse screen: Denies threats or abuse. Nutritional screening: No deficits noted. ap3 Tuberculosis screening: No symptoms or risk factors identified. 15:00 Fall Risk None identified. kb3 Assessment: 14:30 General: Appears distressed, Behavior is cooperative, anxious, crying, Pt reports kb3 abdominal pain x2 days with associated nausea, history of gastroparesis. Pt reports she skipped dialysis today because of the vomiting. No vomiting noted since arrival. 14:30 GI: Abdomen is round non-distended, Bowel sounds diminished in right upper quadrant, kb3 left upper quadrant, right lower quadrant and left lower quadrant Abd is soft X 4 quads. Vital Signs: 14:06 BP 223 / 106; Pulse 79; Resp 17; Temp 97.8(O); Pulse Ox 100% ; Weight 74.7 kg; Height 5 ap3 ft. 1 in. (154.94 cm); 15:00 BP 225 / 89; Pulse 80; Resp 18; Pulse Ox 100% ; kb3 14:06 Body Mass Index 31.12 (74.70 kg, 154.94 cm) ap3 ED Course: 13:52 Patient arrived in ED. rg4 13:52 Analia Soto [facility]-C [facility]. snw 13:52 Rasta Diaz MD is Attending Physician. snw 14:08 Triage completed. ap3 14:10 Arm band placed on right wrist. ap3 14:16 Olga Landers, TABATHA is Primary Nurse. kb3 14:46 Flu Sent. dh3 14:46 SARS RAPID Sent. dh3 15:00 Patient has correct armband on for positive identification. Bed in low position. Call kb3 light in reach. Side rails up X 1. Client placed on continuous cardiac and pulse oximetry monitoring. NIBP monitoring applied. 15:00 No provider procedures requiring assistance completed. kb3 16:00 Patient did not have IV access during this emergency room visit. kb3 Administered Medications: 14:55 Drug: Phenergan (promethazine) Suppository 50 mg Route: NH; kb3 15:38 Follow up: Response: No adverse reaction; Nausea is decreased; Vomiting decreased kb3 15:15 Drug: ERYTHromycin 500 mg Route: PO; kb3 15:39 Follow up: Response: No adverse reaction kb3 15:38 Drug: Valium (diazepam) 5 mg Route: IM; Site: left ventrogluteal; kb3 16:00 Follow up: Response: No adverse reaction; Pain is decreased; Anxiety decreased kb3 Medication: 15:00 VIS not applicable for this client. kb3 Outcome: 15:26 Discharge ordered by . snw 16:00 Discharged to home ambulatory. kb3 16:00 Condition: stable 16:00 Discharge instructions given to patient, Instructed on discharge instructions, follow up and referral plans. medication usage, Demonstrated understanding of instructions, follow-up care, medications, Prescriptions given X 2. 16:11 Patient left the ED. kb3 Signatures: nAalia Soto, CAN OPERATOR-C CAN OPERATOR-Csnw Mari Antonio rg4 Stefania Dorman 3 Radha Florez, RN RN ap3 Olga Landers, RN RN kb3 Corrections: (The following items were deleted from the chart) 15:26 14:00 General: Appears distressed, Behavior is cooperative, anxious, crying, Pt reports kb3 abdominal pain x3 days with associated nausea, history of gastroparesis. Pt reports she skipped dialysis today because of the vomiting. No vomiting noted since arrival. kb3 15:27 14:30 General: Appears distressed, Behavior is cooperative, anxious, crying, Pt reports kb3 abdominal pain x3 days with associated nausea, history of gastroparesis. Pt reports she skipped dialysis today because of the vomiting. No vomiting noted since arrival. kb3 15:27 15:26 GI: Abdomen is round non-distended, Bowel sounds diminished in right upper kb3 quadrant, left upper quadrant, right lower quadrant and left lower quadrant Abd is soft X 4 quads kb3
[2022-03-23 15:29] LABS: SARS-CoV-2 Antigen Rapid Res Negative (Negative)
[2022-03-23] MEDS ORDERED: DIAZEPAM 10 MG/2 ML INJ SYRINGE ONE (15:34)
[2022-03-23 17:09] VITALS: TEMP 97.8; O2SAT 100
[2022-03-23 17:10] VITALS: BP 225/89
== END 2022-03-23 16:11 | disposition home or self-care (01) ==
LOC: ER 13:49
DX: K31.84 Gastroparesis (principal); E11.22 Type 2 diabetes mellitus with diabetic chronic kidney disease; I13.0 Hypertensive heart and chronic kidney disease with heart failure and stage 1 through stage 4 chronic kidney disease, or unspecified chronic kidney disease; N18.9 Chronic kidney disease, unspecified; I50.9 Heart failure, unspecified; Z91.15 Patient's noncompliance with renal dialysis; F17.210 Nicotine dependence, cigarettes, uncomplicated; Z20.822 Contact with and (suspected) exposure to COVID-19
CPT/HCPCS: 36415; 87804 ×2; 96372; 99283; 87811; J3360

== ENCOUNTER 2022-05-18 15:10 | Emergency (ER) | payer MEDICARE, OTHER ==
--- OUTSIDE RECORDS SUMMARY | 2022-05-18 15:41 | XMS REPORT | Continuity of Care Document ---
:1980 Author Organization [facility] t Address [address] [place] [address] Care Team Providers Name Role Phone SHARPLESS Primary Care Physician Unavailable Nodal_J Attending Clinician Unavailable Deshazo_T Attending Clinician Unavailable RAJ WEST Attending Clinician Unavailable Jose Miguel Morin DO Attending Clinician Rosy BURNS, Brooke Ricci Attending Clinician [phone] Bessie Phillips Attending Clinician [phone] Forrest Cruz Attending Clinician Unavailable Melany Gilbert Attending Clinician Pat BURNS, Sivan Brand Attending Clinician Isra BURNS, Rachel Lew Attending Clinician [phone] Robe BURNS, Holden Elmore Attending Clinician Magaly BURNS, Shanda Higuera Attending Clinician Endy BURNS, Aurelio Attending Clinician Alesia Dodd Attending Clinician Joe BURNS, Mando Raphael Attending Clinician [phone] Jose Carlos BURNS, Veto Vincent Attending Clinician Pati BURNS, Juwan Attending Clinician Doc BURNS, Sofi Juárez Attending Clinician [phone] Robert MAYS, Gayle Attending Clinician Unavailable Luciana BURNS, Frankie Baig Attending Clinician Chandler Silverman Attending Clinician MD RACHEL BRASHER Attending Clinician Unavailable MD SHANDA SHAHID Attending Clinician Unavailable Adelita SAPP, Leah Attending Clinician Unavailable Ba Attending Clinician Unavailable Tam MAYS, Maria M Attending Clinician Unavailable Anila Boles MA Attending Clinician Unavailable Sheikh KATY, Tom Attending Clinician August BURNS, Marilu Sheridan Attending Clinician Adam BURNS, Sukhjinder Argueta Attending Clinician Brisa JARRETT, Hanane Attending Clinician MD JUWAN YOU Attending Clinician Unavailable Corin MAYS, Elodia Attending Clinician Unavailable Doctor Unassigned, [place]ge Attending Clinician Unavailable MONA BHAT Attending Clinician Unavailable Missy Garcia RN Attending Clinician Unavailable Jimena Easton DO Attending Clinician Arun BURNS, Eze Vail Attending Clinician Obed Gray MD Attending Clinician MONISHA BAJWA Attending Clinician Unavailable Monisha Bajwa Attending Clinician Alexandr Diane MD Attending Clinician OZ KIMBLE Attending Clinician Unavailable HUI WRIGHT Attending Clinician Unavailable Hui Wright Attending Clinician JOSE LUIS GONZALEZ Attending Clinician Unavailable Lamin BURNS, Oz Bolaños Attending Clinician Jose Luis Gonzalez MD Attending Clinician Earl Sanchez DO Attending Clinician DEJA CLEANING Attending Clinician Unavailable Deja Cleaning DPM Attending Clinician [phone] P[facility], [facility] Echo Room 1 - Attending Clinician Unavailable Visit, Adc Nurse Attending Clinician Unavailable 2, [facility] Lab Attending Clinician Unavailable Mona Bhat MD Attending Clinician Marlin Garay Attending Clinician Yury Marie MD Attending Clinician LIMA SAWYER Attending Clinician Unavailable Lima Sawyer MD Attending Clinician BRANDON JOHN Attending Clinician Unavailable Brandon John MD Attending Clinician Rei Waldron Attending Clinician Unavailable Rei Waldron Attending Clinician Unavailable RACHEL BROOKS Attending Clinician Unavailable YISSEL RUST Attending Clinician Unavailable Yissel Rust MD Attending Clinician Stacie Edgar Attending Clinician ZEKE RUVALCABA Attending Clinician Unavailable Adán Horn MD Attending Clinician Aimee Frederick Attending Clinician Unavailable Gary Manrique MD Attending Clinician Brandon Holt MD Attending Clinician LY DORADO Attending Clinician Unavailable MOISE BHAKTA Attending Clinician Unavailable Luan Jamison Attending Clinician Joe Juárez Attending Clinician Atul Valdez Attending Clinician Nodal_J Admitting Clinician Unavailable Deshazo_T Admitting Clinician Unavailable RACHEL BRASHER Admitting Clinician Unavailable MD RACHEL BRASHER Admitting Clinician Unavailable Adams_R Admitting Clinician Unavailable TOM BARBER Admitting Clinician Unavailable MD JUWAN YOU Admitting Clinician Unavailable Arun Espitia MD, Victor J Admitting Clinician [phone] HIU WRIGHT Admitting Clinician Unavailable Hui Wright Admitting Clinician Rei Waldron Admitting Clinician Unavailable MOISE BHAKTA Admitting Clinician Unavailable Danae Cha Admitting Clinician Joe Juárez Admitting Clinician Payers Payer Name Policy Type Policy Number Effective Date Expiration Date S karla MEDICARE PART A AND [id number] 2014 2021 B 00:00:00 00:00:00 [employer] [id number] 2020 00:00:00 MEDICARE PART A \\T\\ [id number] 2014 B 00:00:00 MEDICAID OF [place] [id number] 2020 00:00:00 [employer] [facility] [id number] 2021 (MEDICARE 00:00:00 REPLACEMENT HMO) MEDICARE A B [id number] 2014 00:00:00 [place]ICA[place] [id number] 2016 00:00:00 Problems Condition Condition Condition Status [...] Irritable Irritable Disease Active [place] bowel bowel - Health syndrome syndrome 00:00: (IBS) (IBS) 00 GASTROPARE GASTROPAR Diagnosis Active 2021-02-10 Memoria HELENA/IBS-D ESISI/IBS- 01-03 21:41:00 l /ANEMIA D/ANEMIA 00:00: [place] Active 00 01/03/2021 [facility] NEW NEW Diagnosis Active 2020-12-24 Mem oria PATIENT GI PATIENT GI 10-14 10:39:00 l CONSULT CONSULT 00:00: Vin REFRACTORY REFRACTORY 00 GASTRO GASTRO Active 10/14/2020 [facility] Malfunctio Malfunctio Disease Active Overview : Univers n of n of 6-03 Formattin ity of arterioven arterioven 00:00: g of this [place] ous ous 00 note Medical dialysis dialysis might be Bran ch fistula, fistula, different initial initial from the encounter encounter original. Added automatic ally from request for surgery [id number] Candidiasi Candidiasi Disease Active U nivers s of vulva s of vulva 2-18 it y of and vagina [place] [facility] Branch Screening Screening Disease Active Uni vers for breast for breast 2-18 it y of cancer cancer 00:00: [place] 00 Medical Branch NEW NEW Diagnosis Active 2018-07-26 Mem oria EVALUATION EVALUATION 07-12 09:39:00 l Active 00:00: Vin 07/12/2018 00 [facility] Pyogenic Pyogenic Disease Active 2017-06 Overview: Un lori granuloma granuloma 0-17 Formattin i ty of of of 00:00: g of this [place] conjunctiv conjunctiv 00 note Me dical a, right a, right might be Bran ch different from the original. Added automatic ally from request for surgery [id number] Right eye Right eye Disease Active Overview: Univers affected affected 9-04 Formattin ity of by by 00:00: g of this [place] proliferat proliferat 00 note Me dical montse montse might be Branch diabetic diabetic different retinopath retinopath from the y with y with original. traction traction Added retinal retinal automatic detachment detachment ally from not not request involving involving for macula, macula, surgery associated associated [id number] with type with type 1 diabetes 1 diabetes mellitus mellitus Pain Pain Disease Active Univers management management 01-18 it y of 00:00: Medical Branch Blind Blind Disease Active Overview: Univer s painful painful 12-16 Formattin ity o f eye eye 00:00: g of this [place] 00 note Medical might be Branch different from the original. Eviscerat ion OS on 8 - Dr. 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 Added automatic ally from request for surgery [id number] ESRD (end ESRD (end Disease Active Overview: Univers stage stage 6-12 Formattin ity of renal renal 00:00: g of this [place] disease) disease) 00 note Medica l on on might be Branch dialysis dialysis different from the original. Added automatic ally from request for surgery [id number] Diabetes Diabetes Disease Active Metho di mellitus mellitus 11-12 st 00:00: Hospita 00 l LUQ pain LUQ pain Disease Active Unive rs 2-05 ity of 00:00: Medical Branch Glaucoma Glaucoma Disease Active Overview: Un lori due to due to 2 Formattin ity of silicone silicone 00:00: g of this [place] as oil oil 00 note Medical might be Branch different from the original. Added automatic ally from request for surgery [id number] Neovascula Neovascula Disease Active U nivers r r 1-18 ity of glaucoma, glaucoma, [place] left eye left eye 00 Medica l Branch Increased Increased Disease Active Uni vers intraocula intraocula 1-18 it y of r pressure r pressure [place] Fall Fall Disease Active 2016-06 Univers 0-13 ity of 00:00: [place] [facility] Pneumonia Pneumonia Disease Active 2016-06 Uni vers 0-11 ity of 00:00: [place] 00 Medical Branch Diabetes Diabetes Disease Active 2016-06 Overview: Un lori mellitus mellitus 0-05 Formattin ity of 00:00: g of this [place] 00 note Medical might be Branch different from the original. Added automatic ally from request for surgery [id number] Pseudotumo Pseudotumo Disease Active U nivers r cerebri r cerebri 9-25 ity of 00:00: [place] [address] Medical Branch Liver Liver Disease Active [facility] left foot left foot 00:00: Medi [...] disorder disorder 7[facility]16 [facility] Medical 00 [place] Hypertensi Hypertensi Disease Active C [facility] ve ve 7[facility]16 [facility] emergency emergency 00:00: Medi ta[place] 00 [place] ACUTE RESP ACUTE Diagnosis Active 2016-09-09 Memoria FAILURE RESP 2- 09:11:00 l FAILURE 00:00: [place] Active 00 07/23/2016 [facility] CONGESTION Diagnosis Active 2016-07-24 Memoria AMD CONGESTION 2-02 01:49:00 l DIARRHEA AMD 00:00: [place] DIARRHEA 00 Active 07/23/2016 [facility] Congestive Congestive Disease Active 2015-06 U T heart heart 08-11 Health failure failure 00:00: (CHF) (CHF) 00 SOB/SWELLI SOB/SWELL Diagnosis Active 2015-062016-06-10 Memoria NG ING Active 08-11 15:48:00 l 06/10/2016 00:00: Jake n [address] CHF/RENAL Diagnosis Active 2015-062016-06-24 Memoria DISEASE CHF/RENAL 08-11 15:35:00 l DISEASE 00:00: [place] Active 00 06/10/2016 [facility] Obesity Obesity Disease Active 2015-06 Univers (BMI (BMI 0-12 ity of 30-39.9) 30-39.9) 00:00: [place] [address] Medical Branch Hyperosmol Hyperosmol Disease Active 2015-06 U nivers ar ar 0-12 ity of non-ketoti non-ketoti 00:00: [place] c state in c state in 00 Me dical patient patient Branch with 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 Hyperglyce Hyperglyce Disease Active 2015-06 U nivers maryam maryam 0-11 ity of 00:00: [place] [address] Medical Branch Diabetic Diabetic Disease Active Unive rs ulcer of ulcer of 5-07 ity of both feet [place] 00:[place] associated associated 00 Me dical with type with type Bran ch 2 diabetes 2 diabetes mellitus mellitus SANJUANA (acute SANJUANA (acute Disease Active U nivers kidney kidney 5-07 ity of injury) injury) 00:00: [place] [address] Medical Branch Depression Depression Disease Active U nivers 5-07 ity of 00:00: [place] [address] Medical Branch Bipolar 1 Bipolar 1 Disease Active Uni vers disorder disorder 5-07 ity of 00:00: [place] [address] Medical Branch Suicidal Suicidal Disease Active Unive rs ideation ideation 5-05 ity of 00:00: [place] [address] Medical Branch Diabetes Diabetes Disease Active Unive [...] 00:00: [place] cancer in cancer in 00 [facility] tawnya female female Branch Family Family Disease [...] SEIZURES 00:00: Jake gonzalez Active 00 06/26/2013 [facility] ABD PAIN ABD PAIN Diagnosis Active 2012-062013-04-19 Memoria Active 0 21:51:00 l 04/14/2013 19:00: [place] gonzalez [address] [place] GASTROPERI Diagnosis Active 2012-09-13 Memoria SIS GASTROPERI -12 15:17:00 l SIS Active 00:00: Jake gonzalez 08/02/2012 00 [facility] ABDOMINAL ABDOMINAL Diagnosis Active 2012-03-14 Memoria PAIN PAIN 03-14 16:56:00 l Active 14:00: Vin 03/14/2012 00 [facility] NAUSEA, NAUSEA, Diagnosis Active 2012-03-14 Memoria VOMITING VOMITING 03-14 13:25:00 l Active 08:00: Vin 03/14/2012 00 [facility] N/V N/V Diagnosis Active 2011-12-08 Mem oria INABILITY INABILITY 11-27 11:14:00 l TO TO 00:00: [place] TOLERATE TOLERATE 00 PO PO Active 11/28/2011 [facility] VOMITTING VOMITTING Diagnosis Active 2011-11-28 Memoria Active 11-27 16:28:00 l 11/28/2011 00:00: Jake n [address] VOMITTING, VOMITTING Diagnosis Active 2011-09-18 Memoria HIGH BLOOD , HIGH 09-17 09:45:00 l SUGAR BLOOD 00:00: [place] SUGAR 00 Active 09/18/2011 [facility] Methicilli Methicill Problem Active 2021-01-31 Memmarin n in 08-31 22:29:25 l resistant resistant 00:00: Herm naeem Staphyloco Staphyloco 00 ccus ccus aureus aureus (organism) (organism) Active 09/01/2011 Problem 01/31/2021 09/01/11 - Elbow woundProbl em added by Discern Expert. [facility] MRSA MRSA Problem Active 2012-03-16 Memor ia Active 08-31 09:11:30 l 09/01/2011 00:00: Jake n Problem 00 03/16/2012 - Elbow [id number] emiyl added by Discern Expert. [facility] VOMITING, VOMITING, Diagnosis Active 2011-09-01 [facility] BLOOD BLOOD 08-30 03:19:00 l SUGAR SUGAR 00:00: Vin READINGS READINGS 00 HIGH HIGH Active 08/31/2011 [facility] ELBOW ELBOW Diagnosis Active 2011-09-10 Me moria ABSCESS/HY ABSCESS/HY 08-30 16:26:00 l PERGLYCEMI PERGLYCEMI 00:00: He rmann A A Active 00 08/31/2011 [facility] Hypokalemi Hypokalem Problem Active 2012-03-16 Memoria a ia Active 08-22 09:11:30 l 08/23/2011 00:00: Jake n Problem 00 03/16/2012 [facility] DKA DKA Diagnosis Active 2011-08-24 Mem oria Active 11:27:00 l 08/19/2011 00:00: Jake gonzalez [address] VOMITING VOMITING Diagnosis Active 2011-08-19 Memoria Active 16:21:00 l 08/19/2011 00:00: Jake gonzalez [address] Final: Final: Problem 2016-08-02 [place] janice Acute Acute 02:46:22 l respirator respirator He rmann y failure, y failure, unspecifie unspecifie d whether d whether with with hypoxia or hypoxia or hypercapni hypercapni a a 08/02/2016 [facility] Hypoglycem Hypoglyce Problem Inactiv 2012-03-16 Memoria ia maryam e 09:11:30 l Inactive Vin Problem 03/16/2012 [facility] Hypoglycem Hypoglyce Problem Inactiv 2013-04-22 Memoria ia maryam e 04:46:33 l (disorder) (disorder) He rmann Inactive Problem 04/22/2013 [facility] Gastropare Gastropar Problem Resolve 2021-01-31 Memoria sis esis d 22:29:25 l (disorder) (disorder) He rmann Resolved Problem 01/31/2021 [facility] Hypertensi Hypertens Problem Resolve 2021-01-31 Memoria ve montse d 22:29:25 l disorder, disorder, Herm naeem systemic systemic arterial arterial (disorder) (disorder) Resolved Problem 01/31/2021 [facility] Psychiatri Psychiatr Problem Resolve 2021-01-31 Memoria c ic d 22:29:25 l behavioral behavioral He rmann disability disability (finding) (finding) Resolved Problem 01/31/2021 [facility] Seizure Seizure Problem Resolve 2021-01-31 M emoria (finding) (finding) d 22:29:25 l Resolved [place] Problem 01/31/2021 [facility] Hypertensi Hypertens Problem Active 2012-03-16 Memoria on ion Active 09:11:30 l Problem [place] 03/16/2012 [facility] Hypomagnes Hypomagne Problem Active 2013-04-22 Memoria emia semia 04:46:33 l Active Vin Problem 04/22/2013 [facility] Nausea and Nausea Problem Active 2012-03-16 Memoria vomiting and 09:11:30 l vomiting Vin Active Problem 03/16/2012 [facility] ENCNTR FOR ENCNTR Diagnosis Active 2020-12-24 Memoria GENERAL FOR 10:39:00 l ADULT GENERAL [place] MEDICAL ADULT EXAM W/ MEDICAL EXAM W/ Active [facility] DMI DMI Diagnosis Active 2011-08-24 Mem oria KETOACD KETOACD 11:27:00 l UNCONTROLD UNCONTROLD He rmann Active [facility] OTHER OTHER Diagnosis Active 2011-09-10 Mem oria GENERAL GENERAL 16:26:00 l SYMPTOMS SYMPTOMS Jake n Active [facility] HEART HEART Diagnosis Active 2016-06-24 Mem oria FAILURE, FAILURE, 15:35:00 l UNSPECIFIE UNSPECIFIE He rmann D D Active [facility] ACUTE ACUTE Diagnosis Active 2016-09-09 Mem oria RESPIRATOR RESPIRATOR 09:11:00 l Y FAILURE, Y FAILURE, He rmann UNSP W UNSP W HYPOXI HYPOXI Active [facility] Nausea and Nausea Problem Resolve 2021-01-31 2021-01-31 Memoria vomiting and d - 22:29:25 22:29:25 l (disorder) vomiting 00:00: Herm naeem (disorder) 00 Resolved 11/29/2011 Problem 01/31/2021 [facility] Hypokalemi Hypokalem Problem Resolve 2021-01-31 2021-01-31 Memoria a ia d 08-22 22:29:25 22:29:25 l (disorder) (disorder) 00:00: He rmann Resolved 00 08/23/2011 Problem 01/31/2021 [facility] Disorder Disorder Problem Resolve 2021-01-31 2021-01-31 Memoria of of d 08-22 22:29:25 22:29:25 l magnesium magnesium 00:00: Herm naeem metabolism metabolism 00 (disorder) (disorder) Resolved 08/23/2011 Problem 01/31/2021 [facility] Hyperglyce Hyperglyc Problem Resolve 2021-01-31 2021-01-31 Memoria maryam emia d 08-19 22:29:25 22:29:25 l (disorder) (disorder) 00:00: He rmann Resolved 00 08/20/2011 Problem 01/31/2021 [facility] Ketoacidos Ketoacido Problem Resolve 2021-01-31 2021-01-31 Memoria is in sis in d 22:29:25 22:29:25 l diabetes diabetes 00:00: Jake gonzalez mellitus mellitus 00 (disorder) (disorder) Resolved 08/19/2011 Problem 01/31/2021 [facility] DKA DKA Problem Resolve 2013-04-22 2013-04-22 Memoria (diabetic (diabetic d 04:46:33 04:46:33 l ketoacidos ketoacidos 00:00: Tyrel thompson) es) 00 Resolved 08/19/2011 Problem 04/22/2013 [facility] History of Past Illness Condition Condition Condition Status Onset Resolution Last Treating Co mments Source Name Details Category Date Date Treatment Clinician Date Discharge Discharge Problem 2014-06-28 2014-06-28 Memoria Diagnosis: Diagnosis: 06-26 16:34:37 16:34:37 l Gastropare Gastropare 06:00: Tyrel canales sis sis 00 06/26/2014 06/28/2014 [facility] Hyperglyce Hyperglyc Problem Inactiv 2012-03-16 2012-03-16 Memoria maryam emia e 3- 09:11:30 09:11:30 l Inactive 00:00: Vin 08/20/2011 00 Problem 03/16/2012 [facility] Allergies, Adverse Reactions, Alerts Allergy Allergy [...] s to drug Cephalex Propensi Active Hives Method i in ty to 7 st adverse 00:00: Hospita reaction 00 l s to drug Cephalex Propensi Active Hives Univer s in ty to 01-18 ity of adverse 00:00: [place] reaction 00 Medical s Branch CEPHALEX DRUG Active Hives Univers IN INGREDI 01-18 ity of 00:00: [place] 00 Medical Branch Cephalex Allergy Active Hives [facility] in to 01-18 Health substanc 00:00: e 00 Adhesive Drug Active Swelling 2016-06 [facility] Tape Allergy 2-14 Health 00:00: 00 Adhesive Propensi Active Swelling 2016-06 Tears off M ethodi Tape-Eric ty to 2-[address] icones adverse 00:00: Hospita reaction 00 l s to drug ADHESIVE DRUG Active Med Rash 2016-06 Univers TAPE-ERIC 2-14 ity of ICONES 00:00: [place] 00 [...] 00:00: 00 Zolpidem Drug Active Other (See 2017 confusion [...] Reports transient liver disease with nitrofura ntoin Guaifene Propensi Active Other - See numbness [...] mine reaction 00 l s to drug KETOROLA DRUG Active High Swelling Univer [...] s to drug Lisinopr Propensi Active Other (See 2015-06 Tongue [...] nable to rememberU nable to remembera ngioedema Lisinopr Propensi Active Other - See 2015-06 angioede m Univers il ty to comments 0 a ity of adverse 00:00: [place] reaction 00 Medical s Branch LISINOPR DRUG Active Other-Cmnt 2015-06 Univ ers [place] INGREDI 0-11 ity of 00:00: [place] 00 Medical Branch Zolpidem Propensi Active Other (See forgetful Methodi ty to Comments) 1- Other st adverse 00:00: reaction( Hospit a reaction 00 s): l s to Itching/H drug anoop/Rash , Other (See Comments) , Other (see comments) , Other (See Comments) , Other (See Comments) , Other - See commentsc onfusionf orgetfulS leep walkingSl eep walkingco nfusionco nfusionco nfusionSl eep walking Zolpidem Propensi Active Other - See Sleep U nivers Tartrate ty to comments 1 walking ity o f adverse 00:00: [place] reaction 00 Medical s to Branch drug ZOLPIDEM DRUG Active Med Other-Cmnt Univ ers TARTRATE INGREDI 06-23 ity of 00:00: [place] [facility] Codeine Propensi Active Other (See Other Met [...] Hospita reaction 00 l s to drug PROLEX [...] drug HivesAirw ay closure Penicill Propensi Active Shortness [...] l Vin codeine codeine Active Memoria l [place] morphine morphine Active Memori a l Vin lisinopr lisinopr Active Memori a il il l Vin Adhesive Adhesive Active Memori a Tape Tape l Vin Ambien Ambien Active Memoria l [place] Prolex Prolex Active Memoria DM DM l Vin penicill Drug Active [facility] lisinopr Drug Active [facility] Ambien Drug Active [facility] Prolixin Drug Active [facility] penicill Drug Active [facility] lisinopr Drug Active [facility] Ambien Drug Active [facility] Prolixin Drug Active [facility] Tape Other Active [facility] penicill Drug Active [facility] lisinopr Drug Active [facility] Ambien Drug Active [facility] Prolixin Drug Active [facility] codeine Drug Active [facility] penicill Drug Active [facility] lisinopr Drug Active [facility] Ambien Drug Active [facility] Prolixin Drug Active [facility] codeine Drug Active [facility] penicill Drug Active [facility] lisinopr Drug Active [facility] Ambien Drug Active [facility] Prolixin Drug Active [facility] penicill Drug Active [facility] lisinopr Drug Active [facility] Ambien Drug Active [facility] Prolixin Drug Active [facility] penicill Drug Active [facility] lisinopr Drug Active [facility] Ambien Drug Active [facility] Prolixin Drug Active [facility] Social History Social Habit Start Date Stop Date Quantity Comments Source History of tobacco Cigarette Smoker [facility] Exposure to Yes [facility] SARS-CoV-2 (event) Hospit al Alcohol intake 2021-06-18 2021-06-18 Ex-drinker [facility] 00:00:00 00:00:00 (finding) Hospital Tobacco use and 2021-05-14 2021-05-14 Smokeless tobacco [facility] exposure 00:00:00 00:00:00 non-user Hospital Cigarettes smoked 2021-05-14 2021-05-14 [facility] current (pack per 00:00:00 00:00:00 Hospita l day) - Reported Cigarette 2021-05-14 2021-05-14 [facility] pack-years 00:00:00 00:00:00 Hospital Social History 2020-12-24 2020-12-24 [facility] 15:49:37 15:49:37 Tobacco Comment 2017-11-12 2017-11-12 5 cigarettes per [facility] 00:00:00 00:00:00 day Hospital Sex [facility]igned At [birth year] [facility] 00:00:[facility]:00 Hospital Smoking Status Start Date Stop Date Source Smokes tobacco daily 2021-05-14 00:00:00 [facility] Former smoker 2020-06-27 00:00:00 2020-06-27 00:00:00 [facility] Medications Ordered Filled Start Stop Current Ordering Indication Dosage Frequency Signature Comments Components Source Medication Medication Date Date Medication? Clinician (SIG) Name Name calcium Yes 1334mg [id number] Take 1,334 Methodi acetate,domingo 1-18 [id number] mg by s t sphat bind, 13:02: 3D mouth 3 Hos whit (Phoslyra) 39 (three) l 667 mg (169 times a mg day. calcium)/5 mL solution cyproheptad Yes 4mg [id number] Take 4 mg Methodi ine 1-18 [id number] by mouth [address] (PERIACTIN) 13:02: 3D (three) Hos whit 4 mg tablet 39 times a l day as needed for allergies. buPROPion Yes 300mg QD Take 300 Met hodi XL 1-[address] (WELLBUTRIN 13:02: mouth Hospi ta XL) 300 MG 39 daily. l 24 hr tablet ascorbic 2022-0 Yes 500mg [id number] Take 500 Methodi acid, 1-[id number] vitamin C, 13:02: 3D mouth 3 Hosp jo-ann (ascorbic 39 (three) l acid with times a sia hips) day. 500 MG tablet clonAZEPAM 2-0 Yes .5mg Take 0.5 [facility] (KlonoPIN) 1-[address] 0.5 MG 13:02: mouth as [facility] tablet 39 needed for l anxiety. glipiZIDE 2021-0 Yes 5mg Take 5 mg [facility] (GLUCOTROL) 1-[address] 5 MG tablet 13:02: daily. [facility] 39 l calcium 2022-0 Yes 667mg Q.[id number] Take 667 [facility] acetate 1-[id number] (PHOSLO) 13:02: 3D mouth [...] 39 (two) l times a day. pravastatin 0 Yes 40mg QD Take 40 mg [facility] [...] 39 nightly. l calcium 2021-0 Yes 1334mg Q.[id number] Take 1,334 [facility] acetate,domingo 1-18 [id number] mg by s t sphat bind, 13:02: 3D mouth 3 Hos whit (Phoslyra) 39 (three) l 667 mg (169 times a mg day. calcium)/5 mL solution cyproheptad 0 Yes 4mg Q.12628346 Take 4 mg [facility] ine 1-18 [id number] by mouth [address] (PERIACTIN) 13:02: 3D (three) Hos whit 4 mg tablet 39 times a l day as needed for allergies. buPROPion 2021-0 Yes 300mg QD Take 300 [facility] XL 1-[address] (WELLBUTRIN 13:02: mouth Hospi ta XL) 300 MG 39 daily. l 24 hr tablet ascorbic 2021-0 Yes 500mg Q.17915618 Take 500 [facility] acid, 1-[id number] vitamin C, 13:02: 3D [...] jo-ann 39 l calcium 2021-0 Yes 667mg Q.[id number] Take 667 [facility] acetate 1-[id number] (PHOSLO) 13:02: 3D mouth [...] 13:02: nightly. Hosp [facility] 39 l cholecalcif 202-0 Yes 5000U Take 5,000 [facility] mansi, 1-18 [...] 39 nightly. l calcium 2021-0 Yes 1334mg Q.31692924 Take 1,334 [facility] acetate,domingo 1-18 [id number] mg by s t sphat bind, 13:02: 3D mouth 3 Hos whit (Phoslyra) 39 (three) l 667 mg (169 times a mg day. calcium)/5 mL solution cyproheptad 2021-0 Yes 4mg Q.24505592 Take 4 mg [facility] ine 1-18 [id number] by mouth [address] (PERIACTIN) 13:02: 3D (three) Hos whit 4 mg tablet 39 times a l day as needed for allergies. buPROPion 2021-0 Yes 300mg QD Take 300 [facility] XL 1-[address] (WELLBUTRIN 13:02: mouth Hospi ta XL) 300 MG 39 daily. l 24 hr tablet ascorbic 2021-0 Yes 500mg Q.62486029 Take 500 [facility] acid, 1-[id number] vitamin C, 13:02: 3D mouth 3 [facility]osp [facility] (ascorbic 39 (three) l acid with times a sai hips) day. 500 MG tablet clonAZEPAM 2021-0 Yes .5mg Take 0.5 [facility] (KlonoPIN) 1-[address] 0.5 MG 13:02: mouth [facility] tablet 39 needed for l anxiety. glipiZIDE 2021-0 Yes 5mg Take 5 mg [facility] (GLUCOTROL) 1-[address] 5 MG tablet 13:02: daily. [facility] 39 l calcium 2021-0 Yes 667mg Q.16248352 Take 667 [facility] acetate 1-[id number] (PHOSLO) 13:02: 3D mouth [...] Take 80 mg M [facility] (LASIX) 80 -[address] mg tablet 13:02: [...] 39 nightly. l calcium 2021-0 Yes 1334mg Q.81087631 Take 1,334 [facility] acetate,domingo 1-18 [id number] mg by s t sphat bind, 13:02: 3D mouth 3 Hos whit (Phoslyra) 39 (three) l 667 mg (169 times a mg day. calcium)/5 mL solution cyproheptad 2021-0 Yes 4mg Q.87769261 Take 4 mg [facility] ine 1-18 [id number] [address] mouth [address] (PERIACTIN) 13:02: 3D (three) Hos whit 4 mg tablet 39 times a l day as needed for allergies. buPROPion 2021-0 Yes 300mg QD Take 300 [facility] XL 1-[address] (WELLBUTRIN 13:02: mouth Hospi ta XL) 300 MG 39 daily. l 24 hr tablet ascorbic 2021-0 Yes 500mg Q.46841366 Take 500 [facility] acid, 1-[id number] vitamin C, 13:02: 3D [...] jo-ann 39 l calcium 2022-0 Yes 667mg Q.12637318 Take 667 [facility] acetate 1-[id number] (PHOSLO) 13:02: 3D mouth [...] 39 nightly. l calcium 2021-0 Yes 1334mg Q.80005861 Take 1,334 [facility] acetate,domingo 1-18 [id number] mg by s t sphat bind, 13:02: 3D mouth 3 Hos whit (Phoslyra) 39 (three) l 667 mg (169 times a mg day. calcium)/5 mL solution cyproheptad 2021-0 Yes 4mg Q.65624743 Take 4 mg [facility] ine 1-18 [id number] [address] mouth [address] (PERIACTIN) 13:02: 3D (three) Hos whit 4 mg tablet 39 times a l day as needed for allergies. buPROPion 2021-0 Yes 300mg QD Take 300 [facility] XL 1-[address] (WELLBUTRIN 13:02: mouth Hospi ta XL) 300 MG 39 daily. l 24 hr tablet ascorbic 2021-0 Yes 500mg Q.77952228 Take 500 [facility] acid, 1-[id number] vitamin C, 13:02: 3D [...] jo-ann 39 l calcium 2021-0 Yes 667mg Q.15023173 Take 667 [facility] acetate 1-[id number] (PHOSLO) 13:02: 3D mouth [...] mouth Hospita tablet 39 nightly. l calcium 2-0 Yes 1334mg Q.51351267 Take 1,334 [facility] acetate,domingo 1-18 [id number] mg by s t sphat bind, 13:02: 3D mouth 3 Hos whit (Phoslyra) 39 (three) l 667 mg (169 times a mg day. calcium)/5 mL solution cyproheptad 202-0 Yes 4mg Q.80502158 Take 4 mg [facility] ine 1-18 [id number] [address] mouth [address] (PERIACTIN) 13:02: 3D (three) Hos whit 4 mg tablet 39 times a l day as needed for allergies. buPROPion 202-0 Yes 300mg QD Take 300 [facility] XL 1-[address] (WELLBUTRIN 13:02: mouth Hospi ta XL) 300 MG 39 daily. l 24 hr tablet ascorbic 2021-0 Yes 500mg Q.[id number] Take 500 [facility] acid, 1-[id number] vitamin C, 13:02: 3D [...] jo-ann 39 l calcium 2021-0 Yes 667mg Q.81880295 Take 667 [facility] acetate 1-[id number] (PHOSLO) 13:02: 3D mouth [...] 39 nightly. l calcium 2021-0 Yes 1334mg Q.08180052 Take 1,334 [facility] acetate,domingo 1-18 [id number] mg by s t sphat bind, 13:02: 3D mouth 3 Hos whit (Phoslyra) 39 (three) l 667 mg (169 times a mg day. calcium)/5 mL solution cyproheptad 2021-0 Yes 4mg Q.[id number] Take 4 mg [facility] ine 1-18 [id number] [address] mouth [address] (PERIACTIN) 13:02: 3D (three) Hos whit 4 mg tablet 39 times a l day as needed for allergies. buPROPion 2021-0 Yes 300mg QD Take 300 [facility] XL 1-[address] (WELLBUTRIN 13:02: mouth Hospi ta XL) 300 MG 39 daily. l 24 hr tablet ascorbic 2021-0 Yes 500mg Q.85293772 Take 500 [facility] acid, 1-[id number] vitamin C, 13:02: 3D [...] jo-ann 39 l calcium 2021-0 Yes 667mg Q.[id number] Take 667 [facility] acetate 1-[id number] (PHOSLO) 13:02: 3D mouth [...] 39 nightly. l calcium 2021-0 Yes 1334mg Q.21781733 Take 1,334 [facility] acetate,domingo 1-18 [id number] mg by s t sphat bind, 13:02: 3D mouth 3 Hos whit (Phoslyra) 39 (three) l 667 mg (169 times a mg day. calcium)/5 mL solution cyproheptad 2-0 Yes 4mg Q.13117318 Take 4 mg [facility] ine 1-18 [id number] [address] mouth [address] (PERIACTIN) 13:02: 3D (three) Hos whit 4 mg tablet 39 times a l day as needed for allergies. buPROPion 2021-0 Yes 300mg QD Take 300 [facility] XL 1-[address] (WELLBUTRIN 13:02: mouth Hospi ta XL) 300 MG 39 daily. l 24 hr tablet ascorbic 2022-0 Yes 500mg Q.72322606 Take 500 [facility] acid, 1-[id number] vitamin C, 13:02: 3D mouth 3 [facility]osp [facility] (ascorbic 39 (three) l acid with times a sia hips) day. 500 MG tablet clonAZEPAM 2-0 Yes .5mg Take 0.5 [facility] (KlonoPIN) 1-[address] 0.5 MG 13:02: mouth as [facility] tablet 39 needed for l anxiety. glipiZIDE 2021-0 Yes 5mg Take 5 mg [facility] (GLUCOTROL) 1-[address] 5 MG tablet 13:02: daily. [facility]osp [facility] 39 l calcium 2021-0 Yes 667mg Q.01669005 Take 667 [facility] acetate 1-[id number] (PHOSLO) 13:02: 3D mouth [...] 39 nightly. l calcium 2021-0 Yes 1334mg Q.[id number] Take 1,334 [facility] acetate,domingo 1-18 [id number] mg by s t sphat bind, 13:02: 3D mouth 3 Hos whit (Phoslyra) 39 (three) l 667 mg (169 times a mg day. calcium)/5 mL solution cyproheptad 2021-0 Yes 4mg Q.04568294 Take 4 mg [facility] ine 1-18 [id number] by mouth [address] (PERIACTIN) 13:02: 3D (three) Hos whit 4 mg tablet 39 times a l day as needed for allergies. buPROPion 2021-0 Yes 300mg QD Take 300 [facility] XL 1-[address] (WELLBUTRIN 13:02: mouth Hospi ta XL) 300 MG 39 daily. l 24 hr tablet ascorbic 2021-0 Yes 500mg Q.56997112 Take 500 [facility] acid, 1-[id number] vitamin C, 13:02: 3D [...] jo-ann 39 l calcium 2021-0 Yes 667mg Q.14802426 Take 667 [facility] acetate 1-[id number] (PHOSLO) 13:02: 3D mouth [...] 13:02: nightly. [facility]osp [facility] 39 l cholecalcif 202-0 Yes 5000U Take 5,000 [facility] mansi, 1-18 [...] 39 nightly. l calcium 2021-0 Yes 1334mg Q.20763536 Take 1,334 [facility] acetate,domingo 1-18 [id number] mg by s t sphat bind, 13:02: 3D mouth 3 Hos whit (Phoslyra) 39 (three) l 667 mg (169 times a mg day. calcium)/5 mL solution cyproheptad 0 Yes 4mg Q.[id number] Take 4 mg [facility] ine 1-18 [id number] mouth [address] (PERIACTIN) 13:02: 3D (three) Hos whit 4 mg tablet 39 times a l day as needed for allergies. buPROPion 0 Yes 300mg QD Take 300 [facility] XL 1-[address] (WELLBUTRIN 13:02: mouth Hospi ta XL) 300 MG 39 daily. l 24 hr tablet ascorbic 2021-0 Yes 500mg Q.73975789 Take 500 [facility] acid, 1-[id number] vitamin C, 13:02: 3D [...] jo-ann 39 l calcium 2021-0 Yes 667mg Q.[id number] Take 667 [facility] acetate 1-[id number] (PHOSLO) 13:02: 3D mouth [...] 13:02: mouth Hospita tablet 39 nightly. l apixaban 2020-06- No 10mg Q.5D Take 10 mg [facility] (ELIQUIS) 5 - 12-29 by mouth 2 s t mg tablet 18:13: 00:00 (two) Hospit a 51 :00 times a l day. Takes 10 mg in morning and 5 mg at night apixaban 2020-06- No 10mg Q.5D Take 10 mg [facility] (ELIQUIS) 5 - 12- by mouth 2 s t mg tablet 18:13: 00:00 (two) Hospit a 51 :00 times a l day. Takes 10 mg in morning and 5 mg at night apixaban 2020-06- No 10mg Q.5D Take 10 mg [facility] (ELIQUIS) 5 - 12-29 by mouth 2 s t mg tablet 18:13: 00:00 (two) Hospit a 51 :00 times a l day. Takes 10 mg in morning and 5 mg at night apixaban 2020-06 No 10mg Q.5D Take 10 mg [facility] (ELIQUIS) 5 - 12-29 by mouth 2 s t mg tablet 18:13: 00:00 (two) Hospit a 51 :00 times a l day. Takes 10 mg in morning and 5 mg at night apixaban 2020-06- No 10mg Q.5D Take 10 mg [facility] (ELIQUIS) 5 - 12-29 by mouth 2 s t mg tablet 18:13: 00:00 (two) Hospit a 51 :00 times a l day. Takes 10 mg in morning and 5 mg at night apixaban 2020-06- No 10mg Q.5D Take 10 mg [facility] (ELIQUIS) 5 2- 12-29 by mouth 2 s t mg tablet [...] mg at night vancomycin 2020-06- No 750mg Q.36137136 Infuse 750 [facility] 750 mg in 07-08 [id number] mg [address] sodium 00:00: 05:59 3W venous [facility]ospita chloride 00 :00 catheter 3 l 0.9% 250 mL (three) IVPB times a week for 19 days. Administer 3 times weekly in dialysis vancomycin 2020-06- No 750mg Q.52392389 Infuse 750 [facility] 750 mg in 07-08 [id number] mg into a [address] sodium 00:00: 05:59 3W venous [facility] chloride 00 :00 catheter 3 l 0.9% 250 mL (three) IVPB times a week for 19 days. Administer 3 times weekly in dialysis vancomycin 2020-06- No 750mg Q.78955348 Infuse 750 [facility] 750 mg in 07-08 [id number] mg into a [address] sodium 00:00: 05:59 3W venous [facility] chloride 00 :00 catheter 3 l 0.9% 250 mL (three) IVPB times a week for 19 days. Administer 3 times weekly in dialysis vancomycin 2020-06- No 750mg Q.91004869 Infuse 750 [facility] 750 mg in 07-08 [id number] mg [address] a [address] sodium 00:00: 05:59 3W venous [facility] chloride 00 :00 catheter 3 l 0.9% 250 mL (three) IVPB times a week for 19 days. Administer 3 times weekly in dialysis vancomycin 2020-06- No 750mg Q.80515240 Infuse 750 [facility] 750 mg in 07-08 [id number] mg into a [address] sodium 00:00: 05:59 3[facility] venous [facility] chloride 00 :00 catheter 3 l 0.9% 250 mL (three) IVPB times a week for 19 days. Administer 3 times weekly in dialysis vancomycin 2020-06- No 750mg Q.05042921 Infuse 750 [facility] 750 mg in 07-08 [id number] mg into a [facility] sodium 00:00: 05:59 3W venous [facility] chloride 00 :00 catheter 3 l 0.9% 250 mL (three) IVPB times a week for 19 days. Administer 3 times weekly in dialysis vancomycin 2020-06- No 750mg Q.25343119 Infuse 750 [facility] 750 mg in 07-08 [id number] mg into a [facility] sodium 00:00: 05:59 3W venous [facility] chloride 00 :00 catheter 3 l 0.9% 250 mL (three) IVPB times a week for 19 days. Administer 3 times weekly in dialysis vancomycin 2020-06- No 750mg Q.65403499 Infuse 750 [facility] 750 mg in 07-08 [id number] mg into a [address] sodium 00:00: 05:59 3W venous [facility] chloride 00 :00 catheter 3 l 0.9% 250 mL (three) IVPB times a week for 19 days. Administer 3 times weekly in dialysis vancomycin 2020-06- No 750mg Q.09101435 Infuse 750 [facility] 750 mg in 07-08 [id number] mg into a [address] sodium 00:00: 05:59 3W venous [facility] chloride 00 :00 catheter 3 l 0.9% 250 mL (three) IVPB times a week for 19 days. Administer 3 times weekly in dialysis vancomycin 2020-06- No 750mg Q.22359801 Infuse 750 [facility] 750 mg in 07-08 [id number] mg into a [address] sodium 00:00: 05:59 3W venous [facility] chloride 00 :00 catheter 3 l 0.9% 250 mL (three) IVPB times a week for 19 days. Administer 3 times weekly in dialysis HYDROcodone 2020-06 1{tbl} Q6H Take 1 [facility] -acetaminop 2-06-[address] [facility] ([employer]) 00:00: 05:59 mouth [facility]osp [facility] 5-325 mg 00 :00 every 6 l per tablet (six) hours as needed for severe pain for up to 5 days .acute pain. Max Daily Amount: 4 tablets HYDROcodone 2020-06 1{tbl} Q6H Take 1 [facility] -acetaminop 2-19 07- tablet by [facility] ([employer]) 00:00: 05:59 mouth [facility] 5-325 mg 00 :00 every 6 l per tablet (six) hours as needed for severe pain for up to 5 days .acute pain. Max Daily Amount: 4 tablets HYDROcodone 2020-06 1{tbl} Q6H Take 1 [facility] -acetaminop 2-19 07- tablet by [facility] ([employer]) 00:00: 05:59 mouth [facility] 5-325 mg 00 :00 every 6 l per tablet (six) hours as needed for severe pain for up to 5 days .acute pain. Max Daily Amount: 4 tablets HYDROcodone 2020-06 1{tbl} Q6H Take 1 [facility] -acetaminop 2-19 07- tablet by [facility] ([employer]) 00:00: 05:59 mouth [facility] 5-325 mg 00 :00 every 6 l per tablet (six) hours as needed for severe pain for up to 5 days .acute pain. Max Daily Amount: 4 tablets HYDROcodone 2020-06 1{tbl} Q6H Take 1 [facility] -acetaminop 2-29 -[address] [facility] ([employer]) 00:00: 05:59 mouth [facility] 5-325 mg 00 :00 every 6 l per tablet (six) hours as needed for severe pain for up to 5 days .acute pain. Max Daily Amount: 4 tablets HYDROcodone 2020-06 1{tbl} Q6H Take 1 [facility] -acetaminop 2-29 -[address] [facility] ([employer]) 00:00: 05:59 mouth [facility] 5-325 mg 00 :00 every 6 l per tablet (six) hours as needed for severe pain for up to 5 days .acute pain. Max Daily Amount: 4 tablets HYDROcodone 2020-06 1{tbl} Q6H Take 1 [facility] -acetaminop 2-29 -[address] [facility] ([employer]) 00:00: 05:59 mouth [facility] 5-325 mg 00 :00 every 6 l per tablet (six) hours as needed for severe pain for up to 5 days .acute pain. Max Daily Amount: 4 tablets HYDROcodone 2020-06 1{tbl} Q6H Take 1 [facility] -acetaminop 2-29 -[address] [facility] ([employer]) 00:00: 05:59 mouth [facility] 5-325 mg 00 :00 every 6 l per tablet (six) hours as needed for severe pain for up to 5 days .acute pain. Max Daily Amount: 4 tablets HYDROcodone 2020-06 1{tbl} Q6H Take 1 [facility] -acetaminop 2-29 01-[address] [facility] ([employer]) 00:00: 05:59 mouth [facility] 5-325 mg 00 :00 every 6 l per tablet (six) hours as needed for severe pain for up to 5 days .acute pain. Max Daily Amount: 4 tablets HYDROcodone 2020-06 1{tbl} Q6H Take 1 [facility] -acetaminop 2-29 - tablet by [facility] hen (NORCO) 00:00: 05:59 [...] QD Take 50 mg [facility] one 08-[address] (ALDACTONE) 10:21: 00:00 daily. Hos whit 50 MG 19 :00 l tablet spironolact 2020-06 No 50mg QD Take 50 mg [facility] one 08-[address] (ALDACTONE) 10:21: 00:00 daily. Hos whit 50 MG 19 :00 l tablet clopidogreL 2020-06- No 75mg QD Take 1 [facility] (PLAVIX) 75 07-27- tablet (75 s t mg tablet 00:00: 05:59 mg total) Ho spita 00 :00 by mouth l daily for 30 days. clopidogreL 2020-2021- No 75mg QD Take 1 Met [facility] [...] QD Take 1 [facility] (PLAVIX) 75 2-11 19-06 tablet (75 s t mg tablet 00:00: [...] QD Take 1 [facility] (NEURONTIN) 2-[address] 300 mg 00:00: 05:59 (300 mg Hospita capsule 00 :00 total) by l mouth daily for 30 days. sennosides- 2020-06 No 1{tbl} QD Take 1 M [facility]i docusate 2-[address] sodium 00:00: 05:59 mouth Hospita (SENOKOT-S) 00 :00 nightly l 8.6-50 mg for 30 per tablet days. gabapentin 2020-06 No 300mg QD Take 1 [facility] (NEURONTIN) 2-[address] 300 mg 00:00: 05:59 (300 [...] QD Take 1 [facility] (NEURONTIN) 2-[address] 300 mg 00:00: 05:59 (300 mg Hospita capsule 00 :00 total) by l mouth daily for 30 days. sennosides- 2020-06- No 1{tbl} QD Take 1 M [facility]i docusate 2-10 19-[address] sodium 00:00: 05:59 mouth Hospita (SENOKOT-S) 00 :00 nightly l 8.6-50 mg for 30 per tablet days. gabapentin 2020-06 No 300mg QD Take 1 [facility] (NEURONTIN) [address] 300 mg 00:00: 05:59 (300 mg Hospita capsule 00 :00 total) by l mouth daily for 30 days. sennosides- 2020-06 No 1{tbl} QD Take 1 M [facility]i docusate [address] sodium 00:00: 05:59 mouth Hospita (SENOKOT-S) 00 :00 nightly l 8.6-50 mg for 30 per tablet days. gabapentin 2020-06 No 300mg QD Take 1 [facility] (NEURONTIN) [address] 300 mg 00:00: 05:59 (300 [...] 8.6-50 mg for 30 per tablet days. sennosides- 2020-06- No 1{tbl} QD Take 1 M [facility]i docusate 206-[address] sodium 00:00: 05:59 mouth Hospita (SENOKOT-S) 00 :00 nightly l 8.6-50 mg for 30 per tablet days. gabapentin 2020-06 No 300mg QD Take 1 [facility] (NEURONTIN) 206-[address] 300 mg 00:00: 05:59 (300 mg Hospita capsule 00 :00 total) by l mouth daily for 30 days. [place]DRO[place]one 2020-06- [place] [address]61 2{tbl} Q8H Take 2 [facility] -acetaminop 2-05 12-13 tablets by s t hen ([employer]) 00:00: 05:59 mouth [facility] 5-325 mg 00 :00 every 8 l per tablet (eight) hours as needed for severe pain for up to 7 days .acute pain. Max Daily Amount: 6 tablets HYDROcodone 2020-0628 2{tbl} Q8H Take 2 [facility] -acetaminop 2-05 12-13 tablets by s t hen ([employer]) 00:00: 05:59 mouth [facility] 5-325 mg 00 :00 every 8 l per tablet (eight) hours as needed for severe pain for up to 7 days .acute pain. Max Daily Amount: 6 tablets HYDROcodone 2020-0628 2{tbl} Q8H Take 2 [facility] -acetaminop 2-05 12-13 tablets by s t hen ([employer]) 00:00: 05:59 mouth [facility] 5-325 mg 00 :00 every 8 l per tablet (eight) hours as needed for severe pain for up to 7 days .acute pain. Max Daily Amount: 6 tablets HYDROcodone 2020-0628 2{tbl} Q8H Take 2 [facility] -acetaminop 2-05 12-13 tablets by s t hen ([employer]) 00:00: 05:59 mouth [facility] 5-325 mg 00 :00 every 8 l per tablet (eight) hours as needed for severe pain for up to 7 days .acute pain. Max Daily Amount: 6 tablets HYDROcodone 2020-0628 2{tbl} Q8H Take 2 [facility] -acetaminop 2-05 12-13 tablets by s t hen ([employer]) 00:00: 05:59 mouth [facility] 5-325 mg 00 :00 every 8 l per tablet (eight) hours as needed for severe pain for up to 7 days .acute pain. Max Daily Amount: 6 tablets HYDROcodone 2020-0628 2{tbl} Q8H Take 2 [facility] -acetaminop 2-05 12-13 tablets by s t hen ([employer]) 00:00: 05:59 mouth [facility] 5-325 mg 00 :00 every 8 l per tablet (eight) hours as needed for severe pain for up to 7 days .acute pain. Max Daily Amount: 6 tablets HYDROcodone 2020-06 2{tbl} Q8H Take 2 [facility] -acetaminop 2-05 12-13 tablets by s t hen ([employer]) 00:00: 05:59 mouth [facility] 5-325 mg 00 :00 every 8 l per tablet (eight) hours as needed for severe pain for up to 7 days .acute pain. Max Daily Amount: 6 tablets HYDROcodone 2020-06 2{tbl} Q8H Take 2 [facility] -acetaminop 2-05 12-13 tablets by s t hen ([employer]) 00:00: 05:59 mouth [facility] 5-325 mg 00 :00 every 8 l per tablet (eight) hours as needed for severe pain for up to 7 days .acute pain. Max Daily Amount: 6 tablets HYDROcodone 2020-06 2{tbl} Q8H Take 2 [facility] -acetaminop 2-05 12-13 tablets by s t hen ([employer]) 00:00: 05:59 mouth [facility] 5-325 mg 00 :00 every 8 l per tablet (eight) hours as needed for severe pain for up to 7 days .acute pain. Max Daily Amount: 6 tablets HYDROcodone 2020-06 2{tbl} Q8H Take 2 [facility] -acetaminop 2-05 12-13 tablets by s t hen ([employer]) 00:00: 05:59 mouth [facility] 5-325 mg 00 :00 every 8 l per tablet (eight) hours as needed for severe pain for up to 7 days .acute pain. Max Daily Amount: 6 tablets predniSONE 2020-06- No [id number] Take M ethodi (DELTASONE) 07-18 Prednisone s t 50 mg 00:00: 00:00 50mg 13 Hospita tablet 00 :00 hours, 7 l hours, and 1 hour prior to scheduled procedure on 05/19/2021 for contrast allergy prophylaxi s. predniSONE 2020-06 No [id number] Take M ethodi (DELTASONE) 07-1805 Prednisone s t 50 mg 00:00: 00:00 50mg 13 Hospita tablet 00 :00 hours, 7 l hours, and 1 hour prior to scheduled procedure on 05/19/2021 for contrast allergy prophylaxi s. predniSONE 2020-06- No [id number] Take M ethodi (DELTASONE) 07-18 12-05 Prednisone s t 50 mg 00:00: 00:00 50mg 13 Hospita tablet 00 :00 hours, 7 l hours, and 1 hour prior to scheduled procedure on 05/19/2021 for contrast allergy prophylaxi s. predniSONE 2020-06- No [id number] Take M ethodi (DELTASONE) 07-18 12-05 Prednisone s t 50 mg 00:00: 00:00 50mg 13 Hospita tablet 00 :00 hours, 7 l hours, and 1 hour prior to scheduled procedure on 05/19/2021 for contrast allergy prophylaxi s. predniSONE 2020-06- No [id number] Take M ethodi (DELTASONE) 07-18 12-05 Prednisone s t 50 mg 00:00: 00:00 50mg 13 Hospita tablet 00 :00 hours, 7 l hours, and 1 hour prior to scheduled procedure on 05/19/2021 for contrast allergy prophylaxi s. predniSONE 2020-06- No [id number] Take M ethodi (DELTASONE) 07-18 12-05 Prednisone s t 50 mg 00:00: 00:00 50mg 13 Hospita tablet 00 :00 hours, 7 l hours, and 1 hour prior to scheduled procedure on 05/19/2021 for contrast allergy prophylaxi s. predniSONE 2020-06- No [id number] Take M ethodi (DELTASONE) 07-18 12-05 Prednisone s t 50 mg 00:00: 00:00 50mg 13 Hospita tablet 00 :00 hours, 7 l hours, and 1 hour prior to scheduled procedure on 05/19/2021 for contrast allergy prophylaxi s. predniSONE 2020-06- No [id number] Take M ethodi (DELTASONE) 07-18 12-05 Prednisone s t 50 mg 00:00: 00:00 50mg 13 Hospita tablet 00 :00 hours, 7 l hours, and 1 hour prior to scheduled procedure on 05/19/2021 for contrast allergy prophylaxi s. predniSONE 2020-06- No [id number] Take M ethodi (DELTASONE) 07-18 12-05 Prednisone s t 50 mg 00:00: 00:00 50mg 13 Hospita tablet 00 :00 hours, 7 l hours, and 1 hour prior to scheduled procedure on 05/19/2021 for contrast allergy prophylaxi s. predniSONE 2020-06- No [id number] Take M ethodi (DELTASONE) 07-18 12-05 Prednisone [...] by mouth. ity of tablet 11:08: [place] [facility] aspirin 81 2020-06 Yes 81mg Take 1 Unive rs mg chewable 0-03 tablet by ity of tablet 11:08: mouth [place] [id number] daily. Medical Branch divalproex 2020-06 Yes 500mg [...] mouth ity of mg tablet 23:08: daily. [place] [address] Medical Branch folic 2020-06 Yes 800mg Take 800 [facility] acid/vit B 0-01 mg by ity of complex and 23:08: mouth [place] C 36 daily. Medical (DIALYVITE Branch 800 ORAL) linagliptin 2020-06 Yes Take by Uni vers (TRADJENTA) 0-01 mouth. ity of 5 mg tablet 23:08: [address] Branch spironolact 2020-06 Yes 50mg Take 50 mg [facility] one 50 mg 0-01 by mouth ity of tablet 23:08: daily. [address] Branch pravastatin 2020-06 Yes 40mg Take 40 mg [facility] 40 mg 0-01 by mouth ity of tablet 23:08: daily. [address] Branch mv-mn/iron/ 2020-06 Yes 1{capsu Take 1 U nivers folic 0-01 le} capsule by ity of acid/herb 23:08: mouth [place] 190 36 daily. Medical (VITAMIN D3 Branch COMPLETE ORAL) SERTraline 2020-06 Yes 50mg Take 50 mg U nivers 50 mg 0-01 by mouth ity of tablet 23:08: daily. [address] Branch calcium 2020-06 Yes 667mg Take 667 Unive rs acetate 667 0-01 mg by ity of mg capsule 23:08: mouth [place] (three) Medical times Branch daily with meals. cetirizine 2020-06 Yes 1{tbl} Take 1 Uni vers HCl/pseudoe 0-01 tablet by ity of phedrine 23:08: mouth [place] (ZYRTEC-D 36 daily. Medical ORAL) Branch furosemide 2020-06 Yes 40mg Take 40 mg U nivers 40 mg 0-01 by mouth 2 ity of tablet 23:08: (two) [place] [address] times Medical daily. Branch divalproex 2020-06 Yes 500mg Take 500 Un lori ER 0-01 mg by ity of (DEPAKOTE 23:08: mouth 2 [place] ER) 500 mg 36 (two) Medical 24 hr times Branch tablet daily. gabapentin 2020-06 Yes 100mg Take 100 Un lori 100 mg 0-01 mg by ity of capsule 23:08: mouth 2 [place] [address] (two) Medical times Branch daily. vitamin C 2020-06 Yes 2000mg Take 2,000 [facility] with sia 0-01 mg by ity of hips 23:08: mouth 2 [place] (VITAMIN C) 36 (two) Medical 1,000 mg times Branch tablet daily. metoprolol 2020-06 Yes 50mg Take 50 mg U nivers tartrate 50 0-01 by mouth ity of mg tablet 23:08: daily. [place] [address] Medical Branch folic 2020-06 Yes 800mg Take 800 [facility] acid/vit B 0-01 mg by ity of complex and 23:08: mouth [place] C 36 daily. Medical (DIALYVITE Branch 800 ORAL) linagliptin 2020-06 Yes Take by Uni vers (TRADJENTA) 0-01 mouth. ity of 5 mg tablet 23:08: [address] Branch spironolact 2020-06 Yes 50mg Take 50 mg Univers one 50 mg 0-01 by mouth ity of tablet 23:08: daily. [address] Branch pravastatin 2020-06 Yes 40mg Take 40 mg Univers 40 mg 0-01 by mouth ity of tablet 23:08: daily. [address] Branch mv-mn/iron/ 2020-06 Yes 1{capsu Take 1 U nivers folic 0-01 le} capsule by ity of acid/herb 23:08: mouth [place] 190 36 daily. Medical (VITAMIN D3 Branch COMPLETE ORAL) SERTraline 2020-06 Yes 50mg Take 50 mg U nivers 50 mg 0-01 by mouth ity of tablet 23:08: daily. [address] Branch calcium 2020-06 Yes 667mg Take 667 Unive rs acetate 667 0-01 mg by ity of mg capsule 23:08: mouth 3 [place] (three) Medical times Branch daily with meals. cetirizine 2020-06 Yes 1{tbl} Take 1 Uni vers HCl/pseudoe 0-01 tablet by ity of phedrine 23:08: mouth [place] (ZYRTEC-D 36 daily. Medical ORAL) Branch [...] = 1 mL, l 1999 19:37: IV, [place] units/mL 00 Q--, preservativ to be e-free given at injectable [...] as: l 22:54: Mag-Ox 400) Magnesium oxide 544ig=419a g elemental magnesium Dose=____m g magnesium oxide [...] 01-22 Take with l Tablet 14:00: food. Vitamin [...] (Same as: l Tablet 14:00: Lasix) May nn 00 cause GI upset. Give with [...] l 14:00: Pravachol) Zoloft No Notes: Memoria 8- (Same as: l 14:00: Zoloft) Tramadol No Notes: Not Mem oria - to exceed l 09:44: 400mg/day. (Same As: Ultram) Tylenol No Notes: Do Memor ia 8- not exceed l 09:44: 4 gm/day. [place] 00 (Same as: Tylenol) Fentanyl No Notes: Memoria 8- (Same as: l 09:44: Sublimaze) Preservati ve free. Fentanyl No Notes: Memoria 8-04 (Same as: l 04:46: Sublimaze) Preservati ve free. Fentanyl No Notes: Memoria 8-04 (Same as: l 02:01: Sublimaze) Preservati ve free. Coreg No Notes: Memoria 8- Give with l 02:00: food. (Same As: [...] Me nuñez 01-21 RT l 17:49: DOCUMENTAT [place] ION (Same as: Proventil) albuterol No 180 [...] being intubated (unless the nurse is a MULE DRIVER). Same as: Diprivan midazolam No Route: IV, Ks moria (ANES) 01-21 Drug form: l 17:18: [...] 01-21 not give l 13:16: IV push. [place] 00 (Same as: Phenergan) Simethicone No Notes: Mendoza janice 01-21 (Same as: l 13:16: Vin Jolley 00 [...] 00 tab, 2 Refill(s), Pharmacy: [facility], 154.94, cm, 12/24/20 10:43:00 CDT, Height, 71.818, kg, 12/24/20 10:43:00 CDT, Weight {2 (480 ML Yes See Memoria Magnesium 7-06 Instructio l Sulfate 18:12: ns, take Jake n 0.0277 00 as MEQ/ML / directed, potassium give sulfate clenpiq if 0.0374 not MEQ/ML / covered by sodium insurance, sulfate # 1 ea, 0 0.257 Refill(s), MEQ/ML Oral Pharmacy: Solution) } [facility] [Sup[facility] 808, Bowel Prep 154.94, [...] day, # 90 tab, 3 Refill(s), Pharmacy: [id number], 154.94, cm, 12/24/20 10:43:00 CDT, Height, 71.818, kg, 12/24/20 10:43:00 CDT, Weight Zinc 2020-0 Yes 140 mg, Memoria 7-06 PO, Daily, l 15:54: 0 Vin 00 Refill(s) Elderberry 0 Yes 0 Memoria preparation 7-06 Refill(s) l 15:54: [place] 00 Buspar 0 Yes PO, BID, 0 Memor ia 7-06 Refill(s) l 15:53: Dialyvite 0 Yes 0 Memoria 5000 7-06 Refill(s) l 15:53: [place] 00 busPIRone 0 Yes 7.5mg Take 7.5 Uni vers 7.5 mg 6-19 mg by ity of tablet 00:00: mouth 2 [place] 00 (two) Medical times Branch daily. traZODone 0 Yes 200mg QD Take 200 [facility] (Desyrel) 6-19 mg by [facility] 100 MG 00:00: mouth at tablet 00 night if needed. NEEDED sertraline Yes 50mg Take 50 mg U T (Zoloft) 50 6-19 by mouth 1 He alth MG tablet 00:00: (one) time 00 each day in the morning. gabapentin 0 Yes 100mg QD Take 100 UT (Neurontin) 6-19 mg by [facility] 100 MG 00:00: mouth 1 capsule 00 (one) time each day. divalproex 0 Yes 500mg Q.5D Take 500 UT (Depakote 6-19 mg by [facility] ER) 500 MG 00:00: mouth 2 24 hr 00 (two) tablet times a day. busPIRone Yes 7.5mg Q.5D Take 7.5 UT (Buspar) 6-19 mg by [facility] 7.5 MG 00:00: mouth 2 tablet 00 (two) times a day. buPROPion Yes 300mg Take 300 UT XL 6-19 mg by [facility] (Wellbutrin 00:00: mouth 1 XL) 300 MG 00 (one) time 24 hr each day tablet in the morning. metoprolol Yes 1{tbl} QD Take 1 UT succinate 5-25 tablet by [facility] h XL 00:00: mouth 1 (Toprol-XL) 00 (one) time 50 MG 24 hr each day. tablet ascorbic Yes 500mg Q.16319515 Take 500 UT acid 5-15 [id number] mg by [facility] (Vitamin C) 00:00: 3D mouth 3 500 MG 00 (three) tablet times a day. zinc Yes DAILY Univers sulfate 50 5-10 ity of mg zinc 00:00: [place] (220 mg) 00 Medical capsule Branch sucralfate Yes 1{tbl} QD Take 1 UT (Carafate) 5-10 tablet by [facility] th 1 g tablet 00:00: mouth 1 00 (one) time each day. ondansetron Yes 4mg Take 4 mg U nivers 4 mg 4-13 by mouth ity of disintegrat 00:00: [place]. [place] tablet 00 Medical Branch GLIPIZIDE 5 Yes [id number] TAKE 1 Univers mg tablet 4-06 TABLET [...] by ity o f 00:00: mouth at [place] 00 bedtime. Medical Branch doxazosin 4 Yes 4mg Take 1 Univ ers mg tablet -07 tablet by ity o f 00:00: mouth at [place] 00 bedtime. Medical Branch glipiZIDE 5 2019-06- No [id number] 5mg Take 1 Univers mg tablet 07-01-06 [...] by ity of tablet 00:00: mouth at [place] [address] bedtime. Medical Branch traZODone 0 Yes 150mg Take 150 Uni vers 150 mg 8-13 mg by ity of tablet 00:00: mouth at [place] [address] bedtime. Medical Branch erythromyci 2020- No [id number] .5[in_u Place 0.5 Univers n 5 mg/gram 01-14 s] Inches in it y of (0.5 %) 00:00: 00:00 left eye 3 Baljinder as ophthalmic 00 :00 (three) Medica l ointment times Branch daily. Continue until you follow up with eye doctor. diphenhydrA 2020- No 50mg Take 1 Uni vers MINE 50 mg 01-21 tablet by ity of tablet 00:00: 00:00 [...] l 59 Center hydrALAZINE 2017-0 Yes 100mg Q.61560893 Take [address] [facility] (APRESOLINE 7-20 [id number] mg by L ukes ) 100 MG 15:20: 3D mouth 3 Medica l tablet 59 (three) Center times daily. magnesium 2017- Yes 400mg QD Take [address] [facility] oxide 7-20 mg by [facility] (MAG-OX) 15:20: mouth Medical 400 mg 59 daily. Center tablet metoclopram 2017- Yes 10mg Q.61592176 Take [address] [facility] gadiel HCl 7-20 [id number] by mouth 3 [facility] (REGLAN) 10 15:20: [...] every 3 Center mg/mL (three) injection months. sertraline 2017 Yes anxiety QD Take by [...] l 59 Center hydrALAZINE 2017-0 Yes 100mg Q.06176023 Take [address] [facility] (APRESOLINE 7-20 [id number] mg by L ukes ) 100 MG 15:20: 3D mouth 3 Medica l tablet 59 (three) Center times daily. magnesium 2017 Yes 400mg QD Take [address] [facility] oxide 7-20 mg by [facility] (MAG-OX) 15:20: mouth Medical 400 mg 59 daily. Center tablet metoclopram 2017 Yes 10mg Q.28130609 Take [address] [facility] gadiel HCl 7-20 [id number] by mouth 3 [facility] (REGLAN) 10 15:20: [...] l 59 Center hydrALAZINE 2017-0 Yes 100mg Q.19252570 Take [address] [facility] (APRESOLINE 7-20 [id number] mg by L ukes ) 100 MG 15:20: 3D mouth 3 Medica l tablet 59 (three) Center times daily. magnesium 2017-0 Yes 400mg QD Take [address] [facility] oxide 7-20 mg by [facility] (MAG-OX) 15:20: mouth Medical 400 mg 59 daily. Center tablet metoclopram 2017-0 Yes 10mg Q.92369498 Take [address] [facility] gadiel HCl 7-20 [id number] by mouth 3 [facility] (REGLAN) 10 15:20: [...] l 59 Center hydrALAZINE 2017-0 Yes 100mg Q.11450480 Take [address] [facility] (APRESOLINE 7-20 [id number] mg by L ukes ) 100 MG 15:20: 3D mouth 3 Medica l tablet 59 (three) Center times daily. magnesium 2017-0 Yes 400mg QD Take [address] [facility] [address] oxide 7-20 mg by [facility] (MAG-OX) 15:20: mouth Medical 400 mg 59 daily. Center tablet metoclopram 2017-0 Yes 10mg Q.26126940 Take [address] [facility] gadiel HCl 7-20 [id number] by mouth 3 [facility] (REGLAN) 10 15:20: [...] l 59 Center hydrALAZINE 2017-0 Yes 100mg Q.16259365 Take [address] [facility] [address] (APRESOLINE 7-20 [id number] mg by Misbah grayes ) 100 MG 15:20: 3D mouth 3 Medica l tablet 59 (three) Center times daily. magnesium 2017-0 Yes 400mg QD Take [address] [facility] [address] oxide 7-20 mg by [facility] (MAG-OX) 15:20: mouth Medical 400 mg 59 daily. Center tablet metoclopram 2017-0 Yes 10mg Q.50274777 Take [address] [facility] gadiel HCl 7-20 [id number] by mouth 3 [facility] (REGLAN) 10 15:20: [...] l 59 Center hydrALAZINE 2017-0 Yes 100mg Q.95619053 Take [address] [facility] [address] (APRESOLINE 7-20 [id number] mg by L ukes ) 100 MG 15:20: 3D mouth 3 Medica l tablet 59 (three) Center times daily. magnesium 2017-0 Yes 400mg QD Take [address] [facility] [address] oxide 7-20 mg by [facility] (MAG-OX) 15:20: mouth Medical 400 mg 59 daily. Center tablet metoclopram 2017-0 Yes 10mg Q.03951877 Take [address] [facility] gadiel HCl 7-20 [id number] by mouth 3 [facility] (REGLAN) 10 15:20: [...] l 59 Center hydrALAZINE 2017-0 Yes 100mg Q.49973735 Take [address] [facility] [address] (APRESOLINE 7-20 [id number] mg by L ukes ) 100 MG 15:20: 3D mouth 3 Medica l tablet 59 (three) Center times daily. magnesium 2017-0 Yes 400mg QD Take [address] oxide 7-20 mg by [facility] (MAG-OX) 15:20: mouth Medical 400 mg 59 daily. Center tablet metoclopram 2017-0 Yes 10mg Q.49445729 Take [address] [facility] gadiel HCl 7-20 [id number] by mouth 3 [facility] (REGLAN) 10 15:20: [...] injection morning Use as directed . Furosemide 2017-0 Yes 40 mg = 1 Me moria 40 MG Oral 2-09 tab, PO, l Tablet 15:07: Daily, # Vin 00 30 tab, 0 Refill(s), Pharmacy: [id number] Bumex No 0.5 mg, Memoria 2 Route: PO, l 15:00: Drug form: [place] 00 TAB, Daily, Dosing Weight 92.273, kg, Start date: 07/30/16 9:00:00 NUTRITIONAL SERVICES HOST, Duration: 30 day, Stop date: 08/28/16 9:00:00 NUTRITIONAL SERVICES HOST Lasix 2016-0 No Notes: Memoria 2-08 (Same [...] Total Volume: 1,000, Start date: 07/26/16 12:26:00 NUTRITIONAL SERVICES HOST, Duration: 30 day, Stop date: 08/25/16 12:25:00 NUTRITIONAL SERVICES HOST Sodium 2016-0 No 500 mL, Memoria Chloride 2-05 500 ml/hr, l 0.154 13:30: Infuse Vin MEQ/ML 00 Over: 1 Injectable hr, Route: Solution IV, 500, Drug form: INJ, ONCE, Priority: STAT, Dosing Weight 92.273 kg, Start date: 07/26/16 7:30:00 NUTRITIONAL SERVICES HOST, Duration: 1 doses or times, Stop date: 07/26/16 7:30:00 NUTRITIONAL SERVICES HOST Insulin No 60 units) Mendoza janice regular 2-04 WASTE: F/P l 08:39: - Black; E Vin 00 - Municipal Trash Bin Stable for 28 days at room temperatur e Expires in days from ____Date Insulin, No Notes: Memoria Aspart, 2-04 Roll in l Human 07:31: palms of [place] 00 hands gently; Do not shake vigorously [...] ____Date atorvastati No Notes: Mendoza janice n 2- (Same as: l 03:00: Lipitor) divalproex No Notes: Memor ia sodium - (Same as: l 03:00: Depakote Vin 00 [...] Weight 92.273, kg, Start date: 07/24/16 9:00:00 NUTRITIONAL SERVICES HOST, Duration: 30 day, Stop date: 08/22/16 9:00:00 NUTRITIONAL SERVICES HOST 24 HR No Notes: Memoria Divalproex - (Same as: l Sodium 500 15:00: Depakote Her braden MG Extended 00 ER) Release Tablet [Depakote] gabapentin No Notes: Memor ia 300 MG Oral - (Same as: l Capsule 15:00: Neurontin) Aspirin 81 No Notes: Memor ia MG Chewable 2-03 Take with l Tablet 15:00: food. Vin Lasix No Notes: Memoria 2-03 (Same as: l 15:00: Lasix) [place] 00 MEDICATION WASTE Product Size: 40 mg Product Wasted: ___ mg Zoloft No Notes: Memoria 2-03 (Same as: l 15:00: Zoloft) [place] Protonix No Notes: Memoria 2-03 Tablet l 15:00: should not [place] 00 be chewed or crushed. (Same as: Protonix) metoprolol No 100 mg, 2 Me moria extended 2-03 tab, l release 15:00: Route: PO, Herm naeem Drug form: ERTAB, Daily, Start date: 07/24/16 9:00:00 NUTRITIONAL SERVICES HOST, Duration: 30 day, Stop date: 08/22/16 9:00:00 NUTRITIONAL SERVICES HOST Insulin No Notes: Memoria Glargine 2-03 Same [...] Roll in l Human 13:30: palms of [place] hands gently; Do not shake vigorously . (Same as: NovoLOG) "single patient use only" WASTE: F/P - Black; E - Municipal Trash Bin Stable for 28 days at room temperatur e. Expires in days from ____Date Dilaudid No Notes: Memoria 2-03 Same as l 11:28: Dilaudid Insulin, No Notes: Memoria Aspart, 2- Roll in l Human 08:40: palms of [...] Blood Glucose Results, Start date: 07/24/16 2:40:00 NUTRITIONAL SERVICES HOST, Duration: 30 day, Stop date: 08/23/16 2:39:00 NUTRITIONAL SERVICES HOST Dextrose No 25 gm, 50 Mendoza janice 50% Syringe 2-03 mL, Route: l 08:40: IVP, Drug Form: INJ, Dosing Weight 92.273, kg, PRN, PRN Blood Glucose Results, Start date: 07/24/16 2:40:00 NUTRITIONAL SERVICES HOST, Duration: 30 day, Stop date: 08/23/16 2:39:00 NUTRITIONAL SERVICES HOST Docusate No Notes: Memoria 2-03 (Same as: [...] Memoria 2-03 Take with l 05:48: food. [place] 00 Prednisone No Notes: Memor ia 2-03 Take with l 05:02: food. Albuterol No Notes: Memori a 0.833 MG/ML - (Same as: l / 04:09: Duoneb) Vin Ipratropium 00 [place] 0.167 MG/ML Inhalant Solution [DuoNeb] Furosemide 2015-06 Yes 80 mg = 2 Me moria 40 MG Oral 2-26 tab, PO, l Tablet 16:34: BID, # 120 Nidia nn 00 tab, 0 Refill(s) atorvastati 2015-06 Yes 40 mg = 1 M emoria n 40 mg 2-26 tab, PO, l oral tablet 16:34: Bedtime, # [place] 00 30 tab, 0 Refill(s) Insulin 2015-06 [...] INHALATION l 0.09 16:34: , PRN, PRN [place] MG/ACTUAT 00 as needed Metered for Dose [...] Oxide 2-24 (Same as: l 13:36: Mag-Ox [place] 00 400) Magnesium oxide 369nj=154v g elemental magnesium Dose=____m g magnesium oxide (___mg elemental magnesium) Magnesium 2015-06 No Notes: Memori a Oxide 2-24 (Same as: l 09:47: Mag-Ox Vin 00 400) Magnesium oxide 277kf=097q g elemental magnesium Dose=____m g magnesium oxide [...] tab, PO, l tablet 15:35: Daily, 0 [place] 00 Refill(s) pravastatin 2015-06 No 40 mg = 1 M emoria 40 mg oral 2-23 tab, PO, l tablet 15:35: Daily, 0 [place] 00 Refill(s) Sertraline 2015-06 Yes 200 mg = 2 M emoria 100 MG Oral 2-23 tab, PO, l Tablet 15:27: Daily, 0 [place] [Zoloft] 00 Refill(s) pantoprazol 2015-06 Yes 40 mg = 1 M emoria e 40 MG 2-23 tab, PO, l Enteric 15:27: Daily, 0 Jake n Coated 00 Refill(s) Tablet [Protonix] gabapentin 2015-06 Yes 1 CAP PO Mem oria 300 MG Oral 2-23 BID AND 1 l Capsule 15:27: CAP AT [place] 00 BEDTIME, 0 Refill(s) Insulin, 2015-06 No [...] Weight 86.364, kg, Start date: 06/11/16 9:00:00 NUTRITIONAL SERVICES HOST, Duration: 30 day, Stop date: 07/10/16 9:00:00 NUTRITIONAL SERVICES HOST Insulin 2015-06 No Notes: Memoria Glargine 2-22 Same as: l 100 UNT/ML 15:00: Lantus) Do H ermann Injectable 00 not hold Solution insulin [Lantus] without contacting prescriber WASTE: F/P - Black; E - Municipal Trash Bin Zoloft 2015-06 No Notes: Memoria 2-22 (Same as: l 15:00: Zoloft) Insulin, 2015-06 No Notes: Memoria Aspart, 2-22 Roll in l Human 12:55: palms of [place] 00 hands gently; Do not shake vigorously [...] 08-12 (Same as: l / 03:00: Duoneb) [place] Ipratropium 00 [place] 0.167 MG/ML Inhalant Solution [DuoNeb] gabapentin 2015-06 No 300 mg, Mendoza janice 300 MG Oral 08-12 Route: PO, l Capsule 03:00: Drug form: Herm naeem 00 CAP, Q12H, Dosing Weight 86.364, kg, (CrCl 30 - 59 ml/min), Start date: 06/10/16 21:00:00 NUTRITIONAL SERVICES HOST, Duration: 30 day, Stop date: 07/10/16 9:00:00 NUTRITIONAL SERVICES HOST divalproex 2015-06 No Notes: Memor ia sodium -22 (Same as: l 03:00: Depakote Vin 00 ER) Once daily dosing; indicated for migraines. Divalproex sodium extended-r elease tab. Do not chew or crush. "Do Not Crush" Losartan 2015-06 No Notes: Memoria 2-22 (Same as: l 03:00: Cozaar) [place] 00 Insulin, 2015-06 No Notes: Memoria Aspart, [...] Blood Glucose Results, Start date: 06/10/16 18:50:00 NUTRITIONAL SERVICES HOST, Duration: 30 day, Stop date: 07/10/16 18:49:00 NUTRITIONAL SERVICES HOST Glucagon 2015-06 No 1 mg, Memoria 2-22 Route: IM, l 00:50: Drug form: [place] 00 PDR/INJ, PRN, Dosing Weight 86.364, kg, PRN Blood Glucose Results, Start date: 06/10/16 18:50:00 NUTRITIONAL SERVICES HOST, Duration: 30 day, Stop date: 07/10/16 18:49:00 NUTRITIONAL SERVICES HOST Hydralazine 2015-06 No Notes: Mendoza janice 2-22 [...] Weight 86.364, kg, Start date: 06/10/16 18:06:00 NUTRITIONAL SERVICES HOST, Stop date: 06/10/16 18:06:00 NUTRITIONAL SERVICES HOST hydrOXYzine 2015-06 No Notes: Mendoza janice pamoate -21 (Same as: l 23:00: Vistaril) Furosemide 2015-06 No 60 mg, Memor ia 2-21 Route: l 22:32: IVP, Drug form: INJ, ONCE, Dosing Weight 86.364, kg, Start date: 06/10/16 16:32:00 NUTRITIONAL SERVICES HOST, Stop date: 06/10/16 16:32:00 NUTRITIONAL SERVICES HOST Lasix 2015-06 No Notes: Memoria 2-21 (Same as: l 17:22: Lasix) [place] 00 MEDICATION WASTE Product Size: 40 mg Product Wasted: _0__ mg Albuterol 2015-06 No Notes: Memori a 0.833 MG/ML 2-21 (Same as: l / 17:22: Duoneb) Ipratropium 00 [place] 0.167 MG/ML Inhalant Solution [DuoNeb] Promethazin Yes 25 mg = 1 M emoria e 06 supp, CO, l Hydrochlori 14:45: Q6H, Jake n de [...] Rate: 125 l 0.9% IV 04:10: ml/hr, [place] 1,000 mL 00 Infuse over: 8 hr, [...] Stop date: 03/14/12 17:19:00 Sodium 2011- No Hung Murillo 500 mL, [...] insulin No Blake 10 unit, Mem oria isophane-CIVIL CAD TECH 6-11 Deangelo 0.1 mL, l H 02:00: [...] 6-10 Omidvar tab, l 19:16: Route: PO, [place] 00 Drug form: TAB, Q4H, PRN Pain, Start date: 11/29/11 14:16:00, Duration: 30 day, Stop date: 12/29/11 14:15:00 insulin 2011-0 No Blake 14 unit, Mem oria isophane-CIVIL CAD TECH 6-10 Deangelo 0.14 mL, l H 14:00: Brisa Route: [place] 00 SUB-Q, Drug form: INJ, Daily, Start [...] Deangelo 0.1 mL, l 06:30: Brisa Route: [place] 00 SUB-Q, Drug form: SOLN, TID-Before Meals, PRN Blood Glucose Results, Start date: 11/29/11 1:30:00, Duration: 30 day, Stop date: 12/29/11 1:29:00 Dextrose 2011- No Blake 25 gm, 50 M emoria [...] l IV 1,000 mL 06:29: Brisa ml/hr, [place] 00 Infuse over: 5 hr, Route: IV, [...] 30 day, Stop date: 12/29/11 1:27:00 Reglan 0 No Blake 10 mg, 2 Mendoza janice [...] mL, Route: l 04:01: Brayan IVP, Drug Vin 00 form: INJ, ONCE, [...] 1,000 mL 11-27 Rate: l 22:48: 1,000 [place] 00 ml/hr, Infuse over: 1 hr, Route: IV, Dosing Weight 57.273 kg, Total Volume: 1,000, Start date: 11/28/11 17:48:00, Duration: 30 day, Stop date: 12/28/11 17:47:00 NS (Bolus) No Arif Domenico 1,000 mL, Memoria IV 1,000 mL 11-27 Rate: l 20:36: 1,000 [place] 00 ml/hr, Infuse over: 1 hr, Route: IV, Dosing Weight 57.273 kg, Total Volume: 1,000, Start date: 11/28/11 15:36:00, Duration: 30 day, Stop date: 12/28/11 15:35:00 Ativan 2011-0 No Arif Domenico 2 mg, 1 Mem oria 6-09 mL, Route: l 20:35: IVP, Drug Vin 00 form: INJ, ONCE, Priority: STAT, Start date: 11/28/11 15:35:00, Stop date: 11/28/11 15:35:00 Novolin R 2012-0 Yes Hughes-Jason 8 unit, M emoria 100 3-30 [place] SUB-Q, l units/mL 17:47: [place] Q12H, 2 He rmann injectable 42 Pu vial, solution Substituti on Allowed, SOLN Novolin N 2011-0 Yes Hughes-Jason 10 unit, Memoria 100 3-30 [place] SUB-Q, l units/mL 17:46: [place] Bedtime, H ermann subcutaneou 27 Pu 10 ml, s injection Substituti on Allowed, SUSP Novolin N Yes Hughes-Jason 14 unit, Memoria 100 3-30 [place] SUB-Q, l units/mL 17:44: Eunice QAM, 1 Her braden subcutaneou 37 Pu vial, s injection Substituti on Allowed, SUSP magnesium No Hughes-Jason 400 mg, 1 Memoria oxide 3-30 [place] tab, l 14:55: Route: PO, Her braden 00 Pu Drug form: TAB, ONCE, Priority: STAT, Start date: 09/18/11 9:55:00, Stop date: 09/18/11 9:55:00 Insulin 2011-0 No Hughes-Jason 8 unit, Mem oria regular 3-30 [place] 0.08 mL, l 14:22: Route: Vin 00 Pu SUB-Q, Drug form: SOLN, ONCE, Priority: STAT, Start date: 09/18/11 9:22:00, Stop date: 09/18/11 9:22:00 Lactated 2011-0 No Hughes-Jason 1,000 mL, Memoria Ringers 3-30 [place] Rate: l (Bolus) IV 14:16: [place] 1,000 He rmann 1,000 mL 00 Pu ml/hr, Infuse over: 1 hr, Route: IV, Total Volume: 1,000, Bolus Dose, Priority: STAT, Start date: 09/18/11 9:16:00, Duration: 1 doses or times, Stop date: 09/18/11 10:15:00 Sodium 2011-0 No Hughes-Jason 1,000 mL, Me moria Chloride 3-30 [place] Rate: l 0.9% 14:06: Daswon 1,000 Vin (Bolus) IV 00 Pu ml/hr, 1000 mL Infuse over: 1 hr, Route: IV, kg, Total Volume: 1,000, Bolus Dose, Priority: STAT, Start date: 09/18/11 9:06:00, Duration: 1 doses or times, Stop date: 09/18/11 10:05:00 sulfamethox 2011-0 Yes Substituti Memoria azole 3-30 on Allowed l 14:04: [place] 58 Sodium 2011- No Hughes-Jason 1,000 mL, Me moria Chloride 3-30 [place] Rate: l 0.9% 13:56: [place] 1,000 Vin (Bolus) IV 00 Pu ml/hr, 1000 mL Infuse over: 1 hr, Route: IV, kg, Total Volume: 1,000, Bolus Dose, Priority: STAT, Start date: 09/18/11 8:56:00, Duration: 1 doses or times, Stop date: 09/18/11 9:55:00 clindamycin No Eber L 300 mg, 2 Memoria 3-21 Anabelle cap, l 21:00: Route: PO, [place] 00 Drug form: CAP, Q8H, Start date: 09/09/11 16:00:00, Duration: 30 day, Stop date: 10/09/11 8:00:00 Colace 100 2011- Yes Luna 100 mg, 1 Memoria mg oral 3-21 Amelia cap, PO, l capsule 18:47: [place] BID, 60 Her braden 19 cap, Substituti on Allowed, CAP clindamycin Yes [place] 300 mg, 2 Memoria 150 mg oral 3-21 Amelia cap, PO, l capsule 18:46: Zeeshan Q8H, 30 Her braden 55 cap, Substituti on Allowed, CAP [place] Yes Luna 1 tab, PO, Memoria 10/325 oral 3-21 Amelia Q4H, PRN, l tablet 18:46: [place] 30 tab, Herm naeem 36 Pain, Substituti on Allowed, Maintenanc e, TAB [place] No Hollie Donavan 1 tab, Mendoza janice [...] Josefina 0.1 mL, l 14:19: Gavin Route: [place] 00 IVP, Drug form: INJ, Q2MIN, PRN Narcotic Reversal, Start date: 09/07/11 9:19:00, Duration: 8 doses or times, Stop date: Limited # of times ondansetron No Gayle 4 mg, 2 Memoria 3-19 Josefina mL, Route: l 14:19: Fate IVP, Drug Jake n 00 form: INJ, ONCE, PRN Nausea & Vomiting, Start date: 09/07/11 9:19:00 hydromorpho 0 No Gayle 0.5 mg, Memoria ne 3-19 Josefina 0.25 mL, l 14:19: Gavin Route: [place] 00 IVP, Drug form: INJ, Q5Min, PRN Pain Score 4-6, Start date: 09/07/11 9:19:00, Duration: 5 doses or times, Stop date: Limited # of times acetaminoph No Gayle 15 mL, M emoria en-hydrocod 09-06 Josefina Route: PO, l one 325 14:19: Fate Drug Form: He rmann mg-10 mg/15 00 SOLN, Q4H, mL oral PRN Pain solution Score 4-6, Start date: 09/07/11 9:19:00, Duration: 1 day, Stop date: 09/08/11 8:00:00 Lactated No [place] 1,000 mL, Me moria Ringers IV 09-06 Omidvar Rate: 125 l 1,000 mL 14:06: ml/hr, [place] 00 Infuse over: 8 hr, Route: IV, Dosing Weight 68.182 kg, Total Volume: 1,000, Start date: 09/07/11 9:06:00, Duration: 30 day, Stop date: 10/07/11 9:05:00 clindamycin No Maximo R 600 mg, Memoria 09-06 Arias Route: l 13:31: IVPB, Vin 00 ONCE, Start date: 09/07/11 8:31:00, Stop date: 09/07/11 8:31:00 normal No Yury Yan 1,000 mL, M emoria saline 0.9% 09-06 [...] 3-17 Omidvar tab, l 14:11: Route: PO, [place] 00 Drug form: ERTAB, ONCE, Start date: [...] Duration: 30 day, Stop date: 10/04/11 18:10:00 [place] 2011-0 No Mahammad 1 tab, Memori a [...] Kavon mL, Route: l 14:50: IVP, Drug [place] 00 form: INJ, ONCE, PRN Nausea & Vomiting, Start date: 09/04/11 9:50:00, Duration: 1 doses or times, Stop date: Limited # of times ropivacaine 2011- No Rosalino Dosing: Memoria 0.2% in NS 3-16 Kavon 10cc/hr, l - site 1 14:50: Route: [place] 400 mL 00 NERVE BLOCK, Start date: 09/04/11 9:50:00 400 mL, Duration: 30 day, Stop date: 10/04/11 9:49:00 naloxone 2011- No Rosalino 0.04 mg, Me moria 3-16 Kavon 0.1 mL, l 14:50: Route: Vin 00 IVP, Drug form: INJ, Q2MIN, PRN Narcotic Reversal, Start date: 09/04/11 9:50:00, Duration: 30 day, Stop date: 10/04/11 9:49:00 [place] 2011-0 No [place] 1 tab, Memoria 10/325 oral 3-16 Omidvar Route: PO, l tablet 14:49: Drug Form: Nidia nn 00 TAB, Q4H, PRN Pain, Start date: 09/04/11 9:49:00, Stop date: 10/04/11 9:48:00 labetalol 2012-0 No Gregory F 5 mg, Mendoza janice [...] Beck 0.1 mL, l 13:37: Hayden Route: [place] IVP, Drug form: INJ, Q2MIN, PRN Narcotic Reversal, Start date: 09/04/11 8:37:00, Duration: 8 doses or times, Stop date: Limited # of times meperidine No Hollie 12.5 mg, Me moria 3-16 Beck 0.5 mL, l 13:37: Hayden Route: [place] 00 IVP, Drug form: INJ, Q30Min, PRN [...] 3-16 Kavon 0.25 mL, l 13:37: Route: [place] 00 IVP, Drug form: INJ, Q5Min, PRN Pain Score 4-6, Start date: 09/04/11 8:37:00, Duration: 5 doses or times, Stop date: Limited # of times clindamycin No Eber L 600 mg, 4 Memoria 3-15 Anabelle mL, Route: l 16:00: IVPB, [place] 00 [id number], Start date: 09/03/11 11:00:00, Duration: 30 day, Stop date: 10/03/11 8:00:00 potassium 2011-0 No [place] 40 mEq, 2 M emoria chloride 3-15 Omidvar tab, l 13:39: Route: PO, Vin 00 Drug form: ERTAB, ONCE, Start date: 09/03/11 8:39:00, Stop date: 09/03/11 8:39:00 [place] 5/325 2011-0 No Rosalino 1 tab, M emoria oral tablet -15 Kavon Route: PO, l 05:00: Drug Form: [place] 00 TAB, Q4H, Start date: 09/03/11 0:00:00, Duration: 30 day, Stop date: 10/02/11 20:00:00 Geodon 2011-0 No Eber L 120 mg, 3 Memoria 3-15 Anabelle cap, l 02:00: Route: PO, [place] 00 Drug form: CAP, Bedtime, Start date: [...] 3-14 Anabelle cap, l 17:00: Route: PO, [place] 00 Drug form: ERCAP, Daily, Give qAM after today's dose., Start date: 09/02/11 12:00:00, Duration: 30 day, Stop date: 10/02/11 9:00:00 [place] 5/325 2011-0 No Rosalino 1 tab, M emoria oral tablet -14 Kavon Route: PO, l 16:25: Drug Form: [...] Route: l 14:00: IVPB, Drug form: INJ, [id number], Start date: 09/02/11 9:00:00, Duration: 30 day, Stop date: 10/01/11 21:00:00 clindamycin 2011-0 No Eber L 600 mg, 4 Memoria (SCIP) 3-14 Anabelle mL, Route: l 10:00: IVPB, [place] 00 [id number], Start date: 09/02/11 5:00:00, Duration: 3 doses or times, Stop date: 09/02/11 21:00:00 clindamycin 2011-0 No Yury 600 mg, 4 Memoria (SCIP) 3-14 Brandon mL, Route: l 04:00: Connally IVPB, Vin 00 [id number], Start date: 09/01/11 23:00:00, Duration: 3 doses or times, Stop date: 09/02/11 15:00:00 insulin 2011-0 No [place] 15 unit, Mendoza janice isophane-CIVIL CAD TECH 3-14 Omidvar 0.15 mL, l H 02:00: [...] 3-14 Barbra Route: l 01:07: Feliciano IVP, [place] 00 Q5Min, PRN Elevated BP, Start date: [...] 3-14 Barbra Route: l 01:07: Feliciano IVP, [place] 00 Q2MIN, PRN Narcotic Reversal, Start date: 09/01/11 20:07:00, Duration: 8 doses or times, Stop date: Limited # of times flumazenil No Mariaelena-Corea 0.2 mg, Memoria 3-14 Barbra Route: l 01:07: Feliciano IVP, PRN, [place] 00 PRN Benzodiaze pine Reversal, Initial dose, Start date: 09/01/11 20:07:00, Duration: 30 day, Stop date: 10/01/11 20:06:00 ondansetron No Mariaelena-Corea 4 mg, Memoria 3-14 Barbra Route: l 01:07: Feliciano IVP, ONCE, [place] 00 PRN Nausea & Vomiting, Start date: 09/01/11 20:07:00 vancomycin 0 No Mele 1 gm, Mem oria 3-14 Gauvain Route: l 01:00: IVPB, Drug [place] 00 form: INJ, [id number], Start date: 09/01/11 20:00:00, Duration: 30 day, [...] Route: l 00:00: IVPB, Drug form: INJ, [id number], Start date: 09/01/11 19:00:00, Duration: 30 day, Stop date: 10/01/11 7:00:00 insulin 2011-0 No Missael 6 unit, Memori a aspart 3-13 Movva 0.06 mL, l 23:23: Route: [place] SUB-Q, Drug form: SOLN, TID-Before Meals, PRN [...] mL, Me moria Ringers IV 3-13 Manuel Ragland Rate: 100 l 1,000 mL 19:03: ml/hr, [...] Madden 0.08 mL, l 15:28: Gurinder Route: [place] 00 SUB-Q, Drug form: SOLN, ONCE, Priority: [...] L 1,000 mL, M emoria Chloride 3- Eldridge Rate: l 0.9% 10:41: 1,000 [place] (Bolus) IV 00 ml/hr, 1000 mL Infuse over: 1 hr, Route: IV, Dosing Weight 68.182 kg, Total Volume: 1,000, Bolus Dose, Priority: STAT, Start date: 09/01/11 5:41:00, Duration: 1 doses or times, Stop date: 09/01/11 6:40:00 ondansetron 2011-0 No Bee L 4 mg, Memoria 3-13 Cruzito Route: l 09:06: IVP, Drug [place] 00 form: INJ, ONCE, Priority: STAT, Start date: 09/01/11 4:06:00, Stop date: 09/01/11 4:06:00 morphine 2011-0 No Bee L 4 mg, Mem oria Sulfate - Cruzito Route: l 09:06: IVP, ONCE, [place] 00 Priority: STAT, Start date: 09/01/11 4:06:00, Stop date: 09/01/11 4:06:00 Sodium 2011-0 No Bee L 1,000 mL, M emoria Chloride 3- Cruzito Rate: l 0.9% 08:42: 1,000 [place] (Bolus) IV 00 ml/hr, 1000 mL Infuse over: 1 hr, Route: IV, Dosing Weight 68.182 kg, Total Volume: 1,000, Bolus Dose, Priority: STAT, Start date: 09/01/11 3:42:00, Duration: 1 doses or times, Stop date: 09/01/11 4:41:00 Insulin 2011- No Bee L 8 unit, Me moria regular 08-31 Cruzito 0.08 mL, l 08:30: Route: [place] 00 IVP, Drug form: SOLN, ONCE, Priority: [...] Stop date: 09/01/11 3:28:00 potassium 2011- No Rbooks Noam 40 mEq, 2 Memoria chloride 3-04 Akmal tab, l 15:00: Route: PO, Vin 00 Drug form: ERTAB, BID, Start date: 08/23/11 9:00:00, Duration: 2 doses or times, Stop date: 08/23/11 17:00:00 amLODipine Yes Brooks Noam 5 mg, 1 Memoria 5 mg oral 3-04 Akmal tab, PO, l tablet 14:45: Daily, 30 Jake n 36 tab, 3, 3, Substituti on Allowed, TAB lisinopril Yes Brooks Noam 40 mg, 2 Memoria 20 mg oral 3-04 Akmal tab, PO, l tablet 14:44: Daily, 60 Jake n 39 tab, 3, 3, Substituti on Allowed, TAB Novolin N Yes Brooks Noam 18 Units, Memoria 100 3-04 Akmal SUB-Q, l units/mL 14:42: BID, 3 Vin subcutaneou 04 vial, 3, s injection 3, Substituti on Allowed, SUSP insulin Yes Brooks Noam 5 Units, Memoria regular 3-04 Akmal SUB-Q, l human 14:40: TID, 30 [place] recombinant 10 vial, 3, 100 3, units/mL Substituti injectable on solution Allowed, before breakfast lunch and dinner, [facility] breakfast lunch and dinner potassium 2011-0 No Brooks Noam 20 mEq, Memoria chloride 3-04 Akmal 100 mL, l 14:00: Route: Vin 00 IVPB, Drug form: INJ, Q2H, Start date: 08/23/11 8:00:00, Duration: 2 doses or times, Stop date: 08/23/11 10:00:00 calcium 2011-0 No Brooks Noam 1 gm, Mem oria chloride 3-04 Akmal Route: l 13:28: IVPB, [place] 00 ONCE, Priority: STAT, Start date: 08/23/11 7:28:00, Stop date: 08/23/11 7:28:00 potassium 2011-0 No Brooks Noam 40 mEq, Memoria chloride 3-04 Akmal Route: IV, l 12:29: ONCE, Vin Start date: 08/23/11 6:29:00, Stop date: 08/23/11 6:29:00 potassium 2011-0 No Brooks Noam 60 mEq, 3 Memoria chloride 20 3-04 Akmal tab, l mEq oral 12:27: Route: PO, Her braden tablet, 00 Drug form: extended ERTAB, release ONCE, Start date: 08/23/11 6:27:00, Stop date: 08/23/11 6:27:00 magnesium 2011-0 No Brooks Noam 2 gm, 50 Memoria sulfate 3-04 [...] Stop date: 08/22/11 10:25:00 potassium 2011-0 No Brooks Noam 40 mEq, 2 Memoria chloride 20 3-03 Akmal tab, l mEq oral 15:00: Route: PO, Her braden tablet, 00 Drug form: extended ERTAB, release Daily, Start date: 08/22/11 9:00:00, Duration: 30 day, Stop date: 08/22/11 12:00:00 magnesium 2011- No Brooks Noam 2 gm, 50 Memoria sulfate 3-03 Akmal mL, Route: l 13:26: IVPB, Drug Vin 00 form: INJ, ONCE, Total dose = 2 gm, Start date: 08/22/11 7:26:00, Duration: 1 doses or times, Stop date: 08/22/11 7:26:00 Geodon 2011- No Yury 120 mg, 3 Mem oria [...] Stop date: 08/21/11 9:12:00 lisinopril 2011-0 No Brooks Noam 40 mg, 2 Memoria 3-02 Akmal [...] 2011-0 No Yury 10 unit, Mem oria isophane-CIVIL CAD TECH 3- Gato Route: l H 16:00: Rivero SUB-Q, Nidia nn 00 ONCE, Start date: 08/20/11 10:00:00, Stop date: 08/20/11 10:00:00 trazodone 2011-0 Yes 200 mg, 2 Mem oria 100 mg oral 3-01 tab, PO, l tablet 15:37: Bedtime, [place] 27 90 tab, Substituti on Allowed, TAB [...] 2011-0 No Yury 10 unit, Mem oria isophane-CIVIL CAD TECH 3- Gato Route: l H 15:00: Rivero [...] 3:38:00, Stop date: 08/20/11 3:38:00 Insulin No Brooks Noam 10 unit, Memoria regular 08-19 Akmal SUB-Q, l 09:28: BID, Vin 23 Substituti on Allowed insulin No 10 unit, Memori a isophane-CIVIL CAD TECH 08-19 SUB-Q, l H 09:26: BID, Vin 18 Substituti on Allowed NS 1,000 mL No Brooks Noam 1,000 mL, Memoria 08-19 Akmal Rate: [...] 2011- No Yury 40 mg, 0.4 Memoria - Gato mL, Route: l 09:00: Rivero SUB-Q, Nidia nn 00 Drug form: INJ, Daily, Priority: Routine, Start date: 08/20/11 3:00:00, Duration: 30 day, Stop date: 09/18/11 9:00:00 insulin 2011- No Yury 18 unit, Mem oria isophane-CIVIL CAD TECH - [place] 0.18 mL, l H 08:58: [...] 25 gm, 50 M emoria 50% Syringe - Gato mL, Route: l 08:48: Rivero IVP, [...] Dextrose No Yury 25 gm, 50 M [facility] 50% Syringe 08-19 Gato ml, Route: l 08:46: Rivero IVP, Drug He rmann 00 Form: INJ, PRN, PRN Blood Glucose Results, Start date: 08/20/11 2:46:00, Duration: 30 day, Stop date: 09/19/11 3:45:00 ondansetron No [facility] [place] Route: l 07:42: Eunice IVP, Drug Herm naeem 00 Pu form: INJ, ONCE, Priority: STAT, Start date: 08/20/11 1:42:00, Stop date: 08/20/11 1:42:00 GI cocktail No Hughes-Jason 30 ml, Memoria 08-19 [place] Route: PO, l 05:12: Eunice Drug Form: Her braden 00 Pu SUSP, ONCE, STAT, Start date: 08/19/11 23:12:00, Stop date: 08/19/11 23:12:00 ondansetron No Hughes-Jason 4 mg, [facility] 08-19 [place] Route: PO, l 05:10: Eunice Drug form: Her braden 00 Pu TABDIS, ONCE, Priority: STAT, Start date: 08/19/11 23:10:00, Stop date: 08/19/11 23:10:00 Lactated No Hughes-Jason 1,000 mL, Memoria Ringers 08-19 [place] Rate: l (Bolus) IV 05:10: Eunice 1,000 He rmann 1000 mL 00 Pu ml/hr, Infuse over: 1 hr, Route: IV, Total Volume: 1,000, Bolus Dose, Priority: STAT, Start date: 08/19/11 23:10:00, Duration: 1 doses or times, Stop date: 08/20/11 0:09:00 Insulin No Hughes-Jason 7 unit, Mem oria regular 08-19 [place] 0.07 mL, l 04:15: Dawson Route: Vin 00 Pu SUB-Q, Drug form: SOLN, ONCE, Priority: STAT, Start date: 08/19/11 22:15:00, Stop date: 08/19/11 22:15:00 Geodon 60 2011-0 No Yury 60 mg, 1 M emoria mg oral Gato cap, PO, l capsule 23:24: Rivero BID, 180 [place] 43 cap, Substituti on Allowed, CAP trazodone No 300 mg, 1 Mem oria 300 mg oral 2-29 tab, PO, l tablet 23:23: Bedtime, [place] 58 15 tab, Substituti on Allowed, TAB [...] 08/19/11 16:04:00, Stop date: 08/19/11 16:04:00 ondansetron 2011- No William 8 mg, Mem oria 2- Wong Route: l 21:57: Pooja IVP, Drug Jake n 00 form: INJ, ONCE, Priority: STAT, Start date: 08/19/11 15:57:00, Stop date: 08/19/11 15:57:00 morphine 2011- No William 4 mg, Memori a Sulfate - Wong Route: l 21:57: Pooja IVP, ONCE, Nidia nn 00 Priority: STAT, Start date: 08/19/11 15:57:00, Stop date: 08/19/11 15:57:00 Reglan 2011- No William 10 mg, Memoria 2- Wong [...] Ordered Immunization Filled Immunization Date Status Commen Source Name Name Influenza Virus 2020-02-20 Completed [facility] 00:00[facility]00 [facility] Influenza Virus 2020-02-20 Completed [facility] Vaccine 00:00:00 [facility] TDAP (ADACEL) VACCINE 2019-07-25 Completed Uni versity of 00:00:00 [facility] Meningococcal B, OMV 2019-07-25 Completed Univ ersity of 00:00:00 [facility] Meningococcal 2019-07-25 Completed [facility] 00:00:00 [facility] tawnya (groups A, C, Y and Branc h W-135) conjugate vaccine (MCV4P) TDAP (ADACEL) VACCINE 2019-07-25 Completed Uni versity of 00:00:00 [facility] Meningococcal B, OMV 2019-07-25 Completed Univ ersity of 00:00:00 [facility] Meningococcal 2019-07-25 Completed University of Polysaccharide 00:00:00 [facility] tawnya (groups A, C, Y and Branc h W-135) conjugate vaccine (MCV4P) Influenza Virus 2019-02-27 Completed Universit [facility] of Vaccine Quad .5 mL IM 00:00:00 [facility] 6+ [facility] Influenza Virus 2019-02-27 Completed [facility]it [facility] of Vaccine Quad .5 mL IM 00:00:00 [facility] 6+ [facility] hepatitis B vaccine 2018-04-07 Completed Memor iamisbah KeitaVin 00:00:00 influenza virus 2018-03-[address] [facility] Vin vaccine, inactivated 00:00:00 hepatitis B vaccine 2017-11-26 Completed Memor ial Vin 00:00:00 influenza virus 2017-10-[address] [facility] Vin vaccine, inactivated 00:00:00 pneumococcal 2017-10-25 Completed [facility] braden 23-valent vaccine 00:00:00 Influenza Virus 2017-06-22 Completed Universit y of Vaccine Quad IM 3+ 00:00:00 [facility] Influenza Virus 2017-06-22 Completed Universit y of Vaccine Quad IM 3+ 00:00:00 [facility] Influenza Virus 2016-04-02 Completed Universit y of Vaccine Quad IM 3+ 00:00:00 [facility] Influenza Virus 2016-04-02 Completed Universit y of Vaccine Quad IM 3+ 00:00:00 [facility] Influenza Virus 2015-10-28 Completed Universit y of Vaccine Quad IM 3+ 00:00:00 [facility] Influenza Virus 2015-10-28 Completed Universit y of Vaccine Quad IM 3+ 00:00:00 [facility] Vital Signs Vital Name Observation Time [...] 2020-06-27 16:33:00 171 mm[Hg] [facility] of [facility] Diastolic blood 2020-06-27 16:33:00 98 mm[Hg] Unive rsity of [facility] Heart rate 2020-06-27 16:33:00 71 /min [facility] Respiratory rate 2020-06-27 16:29:00 19 /min [facility] height 2020-06-27 16:29:00 154.9 cm [facility] Body weight 2020-06-27 16:29:00 [facility] 2020-06-27 16:29:00 32.20 kg/m2 [facility] Oxygen saturation in 2020-06-27 16:29:00 99 /min [facility] Arterial blood by [facility] Pulse oximetry Branch Systolic blood 2020-06-27 16:33:00 171 mm[Hg] [facility]iver s[facility] of [facility] Diastolic blood 2020-06-27 16:33:00 98 mm[Hg] Unive rsity of [facility] Heart rate 2020-06-27 16:33:00 71 /min Universi ty [facility] Respiratory rate 2020-06-27 16:29:00 19 /min [facility] Body height 2020-06-27 16:29:00 [facility] Body weight 2020-06-27 16:29:00 77.293 kg [facility] BMI 2020-06-27 16:29:00 32.20 kg/m2 [facility] Oxygen saturation in 2020-06-27 16:29:00 99 /min University of Arterial blood by [facility] Pulse oximetry Branch Height/Length 2021-07-08 11:50:13 154.9 cm Measured Weight Dosing 2021-07-08 11:50:13 85.00 kg Height/Length 2021-07-08 11:47:31 154.9 cm Measured Weight Dosing 2021-07-08 11:47:31 85.00 kg Height/Length 2021-07-08 11:47:20 154.9 cm Measured Weight Dosing 2021-07-08 11:47:20 85.00 kg Systolic blood 2021-07-08 19:43:00 189 mm[Hg] [facility] pressure Diastolic blood 2021-07-08 19:43:00 104 mm[Hg] [facility] pressure Heart rate 2021-07-08 18:56:00 74 /min [facility] Body temperature 2021-07-08 18:56:00 36.39 Cathleen [facility] Body height 2021-07-08 18:56:00 157.5 cm [facility] Body weight 2021-07-08 18:56:00 72.938 kg [facility] BMI 2021-07-08 18:56:00 29.41 kg/m2 [facility] Oxygen saturation in 2021-07-08 18:56:00 100 /min [facility] Arterial blood by Pulse oximetry Respiratory rate 2021-06-18 16:36:00 11 /min [facility] Systolic (mm Hg) 2021-01-29 20:03:00 [facility] Diastolic (mm Hg) 2021-01-29 20:03:00 [facility] orial Vin Systolic (mm Hg) 2021-01-29 19:40:00 Mendoza rial Vin Diastolic (mm Hg) 2021-01-29 19:40:00 Mem orial Vin Systolic (mm Hg) 2021-01-29 18:05:00 Mendoza rial Vin Diastolic (mm Hg) 2021-01-29 18:05:00 Mem orial [place] Respitory Rate 2021-01-29 16:55:00 Memori al Vin Temperature Oral (F) 2021-01-29 16:45:00 97.3 F Memorial Vin Respitory Rate 2021-01-29 16:45:00 Memori al [place] Respitory Rate 2021-01-29 16:30:00 Memori al [place] Temperature Oral (F) 2021-01-29 13:10:00 97.6 F Memorial [place] Systolic (mm Hg) 2021-01-27 05:00:00 Mendoza rial Vin Diastolic (mm Hg) 2021-01-27 05:00:00 Mem orial Vin Systolic (mm Hg) 2021-01-27 04:00:00 Mendoza rial [place] Diastolic (mm Hg) 2021-01-27 04:00:00 Mem orial [place] Systolic (mm Hg) 2021-01-27 03:00:00 Mendoza rial [place] Diastolic (mm Hg) 2021-01-27 03:00:00 Mem orial [place] Respitory Rate 2021-01-26 19:00:00 Memori al Vin Respitory Rate 2021-01-26 18:00:00 Memori al [place] Respitory Rate 2021-01-26 17:00:00 Memori al [place] Temperature Oral (F) 2021-01-22 13:00:00 97.6 F Memorial [place] Height 2021-01-21 18:25:00 149.86 cm Memorial Vin Weight 2021-01-21 18:25:00 Memorial Vin BMI Calculated 2021-01-21 18:25:00 Memori al [place] Height 2021-01-21 17:09:00 157.48 cm Memorial Vin Height 2021-01-21 13:09:00 157.48 cm Memorial [place] Weight 2021-01-21 13:09:00 Memorial Vin BMI Calculated 2021-01-21 13:09:00 Memori al Vin Heart Rate 2021-01-21 12:50:00 Memorial Vin Systolic (mm Hg) 2020-12-24 15:43:00 Mendoza rial Vin Diastolic (mm Hg) 2020-12-24 15:43:00 Mem orial [place] Heart Rate 2020-12-24 15:43:00 Memorial [place] Height 2020-12-24 15:43:00 154.94 cm Memorial Vin Weight 2020-12-24 15:43:00 Memorial Vin BMI Calculated 2020-12-24 15:43:00 Memori al Vin Systolic (mm Hg) 2016-07-30 14:00:00 Mendoza rial [place] Diastolic (mm Hg) 2016-07-30 14:00:00 Mem orial [place] Respitory Rate 2016-07-30 14:00:00 Memori al [place] Heart Rate 2016-07-30 14:00:00 Memorial Vin Temperature Oral (F) 2016-07-30 14:00:00 97.4 F Memorial Vin Systolic (mm Hg) 2016-07-30 10:45:00 Mendoza rial [place] Diastolic (mm Hg) 2016-07-30 10:45:00 Mem orial Vin Heart Rate 2016-07-30 10:45:00 Memorial Vin Temperature Oral (F) 2016-07-30 10:45:00 97.2 F Memorial [place] Respitory Rate 2016-07-30 10:45:00 Memori al Vni Heart Rate 2016-07-30 06:35:00 [facility] [place] Temperature Oral (F) 2016-07-30 06:35:00 97.0 F Memorial Vin Respitory Rate 2016-07-30 06:35:00 Memori al Vin Systolic (mm Hg) 2016-07-30 06:35:00 Mendoza rial [place] Diastolic (mm Hg) 2016-07-30 06:35:00 Mem orial Vin Weight 2016-07-24 02:13:00 Memorial Vin BMI Calculated 2016-07-24 02:13:00 Memori al [place] Height 2016-07-24 02:13:00 160.02 cm Memorial Vin Respitory Rate 2016-06-15 15:00:00 Memori al [place] Systolic (mm Hg) 2016-06-15 15:00:00 Mendoza rial Vin Diastolic (mm Hg) 2016-06-15 15:00:00 Mem orial Vin Respitory Rate 2016-06-15 14:00:00 Memori al [place] Systolic (mm Hg) 2016-06-15 14:00:00 Mendoza rial Vin Diastolic (mm Hg) 2016-06-15 14:00:00 Mem orial Vin Respitory Rate 2016-06-15 13:29:00 Memori al Vin Systolic (mm Hg) 2016-06-15 13:29:00 Mendoza rial [place] Diastolic (mm Hg) 2016-06-15 13:29:00 Mem orial [place] Temperature Oral (F) 2016-06-14 10:56:00 97.1 F [facility] [place] Temperature Oral (F) 2016-06-14 06:55:00 97.1 F [facility] [place] Temperature Oral (F) 2016-06-12 10:00:00 96.8 F [facility] [place] Weight 2016-06-11 04:25:00 [facility] [place] Height 2016-06-11 04:25:00 160.02 cm [facility] [place] BMI Calculated 2016-06-11 04:25:00 Memori al Vin Heart Rate 2016-06-11 02:04:00 Memorial Vin Heart Rate 2016-06-11 00:00:00 Memorial Vin Heart Rate 2016-06-10 20:30:00 Memorial Vin Weight 2016-06-10 16:04:00 Memorial Vin BMI Calculated 2016-06-10 16:04:00 Memori al [place] Height 2016-06-10 16:04:00 160.02 cm [facility] [place] Temperature Oral (F) 2014-06-26 15:12:00 98.0 F [facility] [place] Systolic (mm Hg) 2014-06-26 15:12:00 Mendoza rial [place] Heart Rate 2014-06-26 15:12:00 [facility] [place] Diastolic (mm Hg) 2014-06-26 15:12:00 Mem orial [place] Respitory Rate 2014-06-26 15:12:00 Memori al [place] Systolic (mm Hg) 2014-06-26 13:53:00 Mendoza rial [place] Diastolic (mm Hg) 2014-06-26 13:53:00 Mem orial Vin Respitory Rate 2014-06-26 13:53:00 Memori al [place] Temperature Oral (F) 2014-06-26 13:53:00 98.0 F Memorial Vin Temperature Oral (F) 2014-06-26 12:37:00 98.2 F Memorial Vin Respitory Rate 2014-06-26 12:37:00 Memori al Vin Systolic (mm Hg) 2014-06-26 12:37:00 Mendoza rial [place] Diastolic (mm Hg) 2014-06-26 12:37:00 Mem orial [place] Heart Rate 2014-06-26 09:21:00 Memorial [place] Heart Rate 2014-06-26 06:08:00 [facility] [place] Height 2014-06-26 05:35:00 154.94 cm Memorial Vin Weight 2014-06-26 05:35:00 [facility] [place] BMI Calculated 2014-06-26 05:35:00 Memori al Vin Respitory Rate 2013-04-15 06:10:00 Memori al Vin Diastolic (mm Hg) 2013-04-15 06:10:00 Mem orial [place] Heart Rate 2013-04-15 06:10:00 [facility] [place] Systolic (mm Hg) 2013-04-15 06:10:00 Mendoza rial [place] Temperature Oral (F) 2013-04-15 06:10:00 98.7 F Memorial [place] Respitory Rate 2013-04-15 05:37:00 Memori al Vin Diastolic (mm Hg) 2013-04-15 05:37:00 Mem orial Vin Systolic (mm Hg) 2013-04-15 05:37:00 Mendoza rial [place] Temperature Oral (F) 2013-04-15 05:37:00 98.2 F Memorial [place] Heart Rate 2013-04-15 05:37:00 Memorial Vin Height 2013-04-15 02:06:00 160.02 cm Memorial Vin Weight 2013-04-15 02:06:00 [facility] [place] Temperature Oral (F) 2013-04-15 02:06:00 98.6 F [facility] [place] Respitory Rate 2013-04-15 02:06:00 Memori al Vin Heart Rate 2013-04-15 02:06:00 Memorial Vin Diastolic (mm Hg) 2013-04-15 02:06:00 Mem orial Vin Systolic (mm Hg) 2013-04-15 02:06:00 Mendoza rial Vin Weight 2012-03-14 21:33:00 [facility] [place] Systolic (mm Hg) 2011-12-01 00:33:00 Mendoza rial Vin Respitory Rate 2011-12-01 00:33:00 Memori al [place] Heart Rate 2011-12-01 00:33:00 [facility] [place] Diastolic (mm Hg) 2011-12-01 00:33:00 Mem orial Vin Temperature Oral (F) 2011-12-01 00:33:00 99.6 F [facility] [place] Diastolic (mm Hg) 2011-11-30 21:00:00 Mem orial [place] Heart Rate 2011-11-30 21:00:00 [facility] [place] Respitory Rate 2011-11-30 21:00:00 Memori al Vin Systolic (mm Hg) 2011-11-30 21:00:00 Mendoza rial Vin Temperature Oral (F) 2011-11-30 21:00:00 99.8 F [facility] [place] Respitory Rate 2011-11-30 16:30:00 Memori al [place] Systolic (mm Hg) 2011-11-30 16:30:00 Mendoza rial [place] Diastolic (mm Hg) 2011-11-30 16:30:00 Mem orial Vin Heart Rate 2011-11-30 16:30:00 Memorial Vin Temperature Oral (F) 2011-11-30 16:30:00 99.8 F Memorial Vin Weight 2011-11-29 11:40:00 Memorial Vin Height 2011-11-29 11:40:00 157.48 cm Memorial Vin Weight 2011-11-28 17:16:00 [facility] [place] Weight 2011-09-18 13:30:00 [facility] [place] Height 2011-09-18 13:30:00 154.94 cm Memorial Vin Heart Rate 2011-09-09 13:31:00 Memorial Vin Systolic (mm Hg) 2011-09-09 13:02:00 Mendoza rial [place] Diastolic (mm Hg) 2011-09-09 13:02:00 Mem orial Vin Respitory Rate 2011-09-09 13:02:00 Memori al Vin Temperature Oral (F) 2011-09-09 13:02:00 97.5 F [facility] [place] Diastolic (mm Hg) 2011-09-09 08:00:00 Mem orial [place] Heart Rate 2011-09-09 08:00:00 [facility] [place] Temperature Oral (F) 2011-09-09 08:00:00 98.6 F Memorial Vin Respitory Rate 2011-09-09 08:00:00 Memori al [place] Systolic (mm Hg) 2011-09-09 08:00:00 Mendoza rial Vin Respitory Rate 2011-09-09 04:55:00 Memori al [place] Diastolic (mm Hg) 2011-09-09 04:55:00 Mem orial Vin Systolic (mm Hg) 2011-09-09 04:55:00 Mendoza rial Vin Heart Rate 2011-09-09 04:55:00 Memorial Vin Temperature Oral (F) 2011-09-09 00:55:00 98.7 F [facility] [place] Weight 2011-09-01 19:59:00 Memorial Vin Height 2011-09-01 19:59:00 154.94 cm [facility] [place] Height 2011-09-01 07:01:00 154.94 cm Memorial Vin Weight 2011-09-01 07:01:00 Memorial Vin Respitory Rate 2011-08-23 18:00:00 Memori al [place] Heart Rate 2011-08-23 18:00:00 [facility] [place] Systolic (mm Hg) 2011-08-23 18:00:00 Mendoza rial [place] Diastolic (mm Hg) 2011-08-23 18:00:00 Mem orial Vin Temperature Oral (F) 2011-08-23 18:00:00 97.7 F Memorial Vin Heart Rate 2011-08-23 14:24:00 [facility] [place] Temperature Oral (F) 2011-08-23 14:24:00 98.2 F Memorial Vin Diastolic (mm Hg) 2011-08-23 14:24:00 Mem orial Vin Systolic (mm Hg) 2011-08-23 14:24:00 Mendoza rial [place] Respitory Rate 2011-08-23 14:24:00 Memori al Vin Systolic (mm Hg) 2011-08-23 11:15:00 Mendoza rial Vin Diastolic (mm Hg) 2011-08-23 11:15:00 Mem orial [place] Temperature Oral (F) 2011-08-23 11:00:00 98.3 F Memorial Vin Heart Rate 2011-08-23 11:00:00 Memorial Vin Respitory Rate 2011-08-22 22:00:00 Brandon aldana Vin Height 2011-08-20 09:12:00 154.94 cm [facility] [place] [facility] 2011-08-20 09:12:00 [facility] 2011-08-19 20:28:00 [facility] 2011-08-19 20:28:00 [facility] Procedures Procedure Date / Time Performing Clinician Source Performed POC GLUCOSE 2021-06-18 17:00:00 [facility] HEPATITIS B SURFACE 2021-06-18 14:07:00 Kenneth [facility] ANTIGEN VANCOMYCIN LEVEL, RANDOM 2021-06-18 13:44:00 [facility] HC COMPLETE BLD COUNT 2021-06-18 13:44:00 [facility] W/AUTO DIFF BASIC METABOLIC PANEL 2021-06-18 11:27:00 [facility] ESTIMATED GFR 2021-06-18 11:27:00 [facility] POC GLUCOSE 2021-06-18 08:07:00 [facility] HEMODIALYSIS 2021-06-18 06:16:53 [facility] POC GLUCOSE 2021-06-18 01:26:00 [facility]Faiza [facility] POC GLUCOSE 2021-06-17 21:58:00 [facility] HEMODIALYSIS 2021-06-17 18:25:45 Bill [facility] POC GLUCOSE 2021-06-17 17:36:00 RenettaFaiza [facility] POC GLUCOSE 2021-06-17 13:51:00 [facility] BASIC METABOLIC PANEL 2021-06-17 11:16:00 [facility] HC COMPLETE BLD COUNT 2021-06-17 11:16:00 [facility] W/AUTO DIFF ESTIMATED GFR 2021-06-17 11:16:00 [facility] POC GLUCOSE 2021-06-17 02:50:00 [facility] CONSULT TO OSTOMY CARE 2021-06-17 00:31:48 [facility] NURSE HC COMPLETE BLD COUNT 2021-06-16 23:31:00 [facility] W/AUTO DIFF BASIC METABOLIC PANEL 2021-06-16 23:31:00 [facility] ESTIMATED GFR 2021-06-16 23:31:00 [facility] POC GLUCOSE 2021-06-16 23:19:00 [facility] [place] < 1 HOUR 2021-06-16 22:49:00 Kaci Diazlie [facility] ANAEROBIC CULTURE 2021-06-16 22:36:00 [facility] [place] FUNGUS CULTURE 2021-06-16 22:36:00 Mando Diaz [facility] AEROBIC CULTURE 2021-06-16 22:36:00 Kaci Diazlicarlos alberto Whyte [facility] GRAM STAIN 2021-06-16 22:36:00 [facility] AN ELECTIVE 2021-06-16 21:30:00 Jocelyne Zepeda [facility] SUPRAGLOTTIC AIRWAY AORTOGRAPHY, POSSIBLE 2021-06-16 21:17:00 [facility] POC , URINE 2021-06-16 20:46:00 [facility] POTASSIUM LEVEL 2021-06-16 17:28:00 Isabell Dickerson [facility] Larry Romero POC GLUCOSE 2021-06-16 11:39:00 [facility] BASIC METABOLIC PANEL 2021-06-16 10:08:00 [facility] HC COMPLETE BLD COUNT 2021-06-16 10:08:00 [facility] W/AUTO DIFF PROTHROMBIN TIME WITH INR 2021-06-16 10:08:00 [facility] PARTIAL THROMBOPLASTIN 2021-06-16 10:08:00 Char Viramontes [facility] TIME (PTT) TYPE AND SCREEN 2021-06-16 10:08:00 [facility] ESTIMATED GFR 2021-06-16 10:08:00 [facility] POC GLUCOSE 2021-06-16 01:59:00 [facility] POC GLUCOSE 2021-06-15 22:58:00 [facility] COVID-19 QUALITATIVE 2021-06-15 19:29:00 Char Viramontes [facility] RT-PCR POC GLUCOSE 2021-06-15 17:42:00 [facility] HEMODIALYSIS 2021-06-15 16:17:54 Delfino Akbar [facility] POC GLUCOSE 2021-06-15 15:41:00 [facility] POC GLUCOSE 2021-06-15 13:44:00 [facility] POC GLUCOSE 2021-06-15 13:00:00 [facility] ECG 12-LEAD 2021-06-15 12:48:21 Leni Barker HC COMPLETE BLD COUNT 2021-06-15 11:42:00 [facility] W/AUTO DIFF BASIC METABOLIC PANEL 2021-06-15 11:42:00 [facility] ESTIMATED GFR 2021-06-15 11:42:00 [facility] POC GLUCOSE 2021-06-15 01:31:00 [facility] US DUPLEX ARTERIAL LOWER 2021-06-14 21:55:33 [facility] EXTREMITY RIGHT POC GLUCOSE 2021-06-14 21:51:00 [facility] POC GLUCOSE 2021-06-14 17:36:00 [facility] POC GLUCOSE 2021-06-14 13:30:00 [facility] POC GLUCOSE 2021-06-14 13:29:00 [facility] HC COMPLETE BLD COUNT 2021-06-14 10:13:00 [facility] W/AUTO DIFF BASIC METABOLIC PANEL 2021-06-14 10:13:00 [facility] ESTIMATED GFR 2021-06-14 10:13:00 [facility] POC GLUCOSE 2021-06-14 02:45:00 [facility] POC GLUCOSE 2021-06-13 21:47:00 [facility] POC GLUCOSE 2021-06-13 20:46:00 [facility] CBC WITH PLATELET AND 2021-06-13 16:10:00 [facility] DIFFERENTIAL COMPREHENSIVE METABOLIC 2021-06-13 16:10:00 [facility] PANEL ESTIMATED GFR 2021-06-13 16:10:00 [facility] HEMODIALYSIS 2021-06-13 15:26:35 [facility] POC GLUCOSE 2021-06-13 14:30:00 [facility] VANCOMYCIN LEVEL, RANDOM 2021-06-13 10:59:00 Juwan You [facility] POC GLUCOSE 2021-06-13 10:40:00 [facility] POC GLUCOSE 2021-06-13 02:28:00 [facility] POC GLUCOSE 2021-06-13 00:16:00 [facility] POC GLUCOSE 2021-06-12 23:31:00 [facility] POC GLUCOSE 2021-06-12 23:14:00 [facility] POC GLUCOSE 2021-06-12 18:19:00 [facility] POC GLUCOSE 2021-06-12 14:37:00 [facility] POC GLUCOSE 2021-06-12 14:01:00 [facility] 2021-06-12 03:03:00 Holden Nagel spital [facility] CT HEAD WO CONTRAST 2021-06-12 00:53:00 [facility] Ram[facility]rez POC GLUCOSE 2021-06-11 18:08:00 Holden Nagel spital [place] POC GLUCOSE 2021-06-11 13:39:00 Holden Nagel spital [place] HEMODIALYSIS 2021-06-11 12:38:38 [facility] POC GLUCOSE 2021-06-11 02:01:00 Holden Nagel spital Ramírez POC GLUCOSE 2021-06-10 22:15:00 Holden Nagel spital Ramírez POC GLUCOSE 2021-06-10 17:39:00 Holden Nagel spital Ramírez POC GLUCOSE 2021-06-10 16:05:00 Holden Nagel spital Ramí[place] TISSUE CULTURE 2021-06-10 15:08:00 Juwan You spital GRAM STAIN 2021-06-10 15:08:00 Juwan You spital ANAEROBIC CULTURE 2021-06-10 15:04:00 Pati [facility] FUNGUS CULTURE 2021-06-10 15:04:00 Juwan You spital AEROBIC CULTURE 2021-06-10 15:04:00 Juwan You spital AFB CULTURE 2021-06-10 15:04:00 Juwan You spital GRAM STAIN 2021-06-10 15:04:00 Juwan You spital AFB STAIN 2021-06-10 15:04:00 Juwan You spital CO AN ELECTIVE 2021-06-10 14:26:00 Sofi Roach spital SUPRAGLOTTIC AIRWAY Marquita INCISION AND DRAINAGE, 2021-06-10 14:26:00 Juwan You [facility] LOWER EXTREMITY HC COMPLETE BLD COUNT 2021-06-10 10:20:00 Juwan You [facility] W/AUTO DIFF BASIC METABOLIC PANEL 2021-06-10 10:20:00 Pati [facility] PROTHROMBIN TIME WITH INR 2021-06-10 10:20:00 Pati [facility] PARTIAL THROMBOPLASTIN 2021-06-10 10:20:00 [facility] TIME (PTT) TYPE AND SCREEN 2021-06-10 10:20:00 Holden Nagel spital Ramírez ESTIMATED GFR 2021-06-10 10:20:00 Juwan You spital POC GLUCOSE 2021-06-10 03:11:00 Nagel, Holden Ferrara spital Ramírez POC GLUCOSE 2021-06-10 01:30:00 Holden Nagel spital [place] POC GLUCOSE 2021-06-09 22:22:00 Holden Nagel spital [place] POC GLUCOSE 2021-06-09 13:55:00 Holden Nagel spital [place] HEMODIALYSIS 2021-06-09 13:20:01 [facility] VANCOMYCIN LEVEL, RANDOM 2021-06-09 11:46:00 [facility] POC GLUCOSE 2021-06-09 02:06:00 Holden Nagel spital Ramírez POC GLUCOSE 2021-06-08 22:23:00 Holden Nagel spital [place] POC GLUCOSE 2021-06-08 17:53:00 Holden Nagel spital [place]írez HC COMPLETE BLD COUNT 2021-06-08 16:06:00 [facility] W/AUTO DIFF POC GLUCOSE 2021-06-08 13:56:00 Holden Nagel spital [place] URINE CULTURE 2021-06-08 03:56:00 Holden Nagel spital [place] URINALYSIS SCREEN AND 2021-06-08 03:32:00 [facility] MICROSCOPY, WITH REFLEX TO CULTURE POC GLUCOSE 2021-06-08 01:15:00 Holden Nagel spital Ramírez POC GLUCOSE 2021-06-07 22:07:00 Holden [facility] [place] POC GLUCOSE 2021-06-07 18:01:00 Holden [facility] [place] BASIC METABOLIC PANEL 2021-06-07 14:15:00 [facility] ESTIMATED GFR 2021-06-07 14:15:00 Holden Nagel [facility] [place] POC GLUCOSE 2021-06-07 13:56:00 Nagel, Holden [facility] [place] POC GLUCOSE 2021-06-07 02:54:00 Holden Nagel Ho spital [facility] CT LOWER EXTREMITY W 2021-06-07 01:22:59 [facility] CONTRAST RIGHT POC GLUCOSE 2021-06-06 23:50:00 Holden Nagel [facility] [place] POC GLUCOSE 2021-06-06 17:31:00 Holden Nagel [facility] [place] HEMODIALYSIS 2021-06-06 15:05:52 Delfino Akbar [facility] POC GLUCOSE 2021-06-06 14:03:00 Holden Nagel [facility] [place] HC COMPLETE BLD COUNT 2021-06-06 10:31:00 [facility] W/AUTO DIFF BASIC METABOLIC PANEL 2021-06-06 10:31:00 [facility] ESTIMATED GFR 2021-06-06 10:31:00 Holden Nagel Ho [facility] [place] POC GLUCOSE 2021-06-06 10:14:00 Holden Nagel [facility] [place] POC GLUCOSE 2021-06-06 06:26:00 Holden Nagel [facility] [place] POC GLUCOSE 2021-06-06 02:41:00 Holden Nagel Ho [facility] [place] POC GLUCOSE 2021-06-05 19:51:00 Holden Nagel Ho spital [place] BASIC METABOLIC PANEL 2021-06-05 18:06:00 [facility] HC COMPLETE BLD COUNT 2021-06-05 18:06:00 [facility] W/AUTO DIFF ESTIMATED GFR 2021-06-05 18:06:00 [facility] [place] POC GLUCOSE 2021-06-05 17:48:00 [facility] [place] ANAEROBIC CULTURE 2021-06-05 17:10:00 Pati, [facility] ANAEROBIC CULTURE 2021-06-05 16:59:00 Pati, [facility] FUNGUS CULTURE 2021-06-05 16:59:00 Pati, [facility] spital AEROBIC CULTURE 2021-06-05 16:59:00 Pati, [facility] spital AFB CULTURE 2021-06-05 16:59:00 Pati, [facility] spital FUNGUS SMEAR 2021-06-05 16:59:00 Pati, [facility] spital AFB STAIN 2021-06-05 16:59:00 Pati, [facility] spital CO AN ELECTIVE 2021-06-05 16:52:08 Chandler Silverman [facility] SUPRAGLOTTIC AIRWAY TISSUE CULTURE 2021-06-05 16:50:00 Pati, [facility] spital GRAM STAIN 2021-06-05 16:50:00 Pati, [facility] spital DEBRIDEMENT, LOWER 2021-06-05 16:16:00 Pati [facility] EXTREMITY POC GLUCOSE 2021-06-05 13:32:00 Holden Nagel [facility] [place] TROPONIN T 2021-06-05 10:58:00 [facility] ospital ABO AND RH CONFIRMATION BY 2021-06-05 10:54:00 Rachel Brasher [facility] PROTOCOL Vipin BASIC METABOLIC PANEL 2021-06-05 10:53:00 [facility] HC COMPLETE BLD COUNT 2021-06-05 10:53:00 [facility] W/AUTO DIFF ESTIMATED GFR 2021-06-05 10:53:00 [facility] PROT[facility]OM[facility] TIME WITH INR 2021-06-05 10:52:00 [facility] PARTIAL THROMBOPLASTIN 2021-06-05 10:52:00 Wander Elizabethmaria luisa [facility] TIME (PTT) HCG QUALITATIVE, SERUM 2021-06-05 10:52:00 Myron Fernandes [facility] SCREEN POC GLUCOSE 2021-06-05 09:40:00 Rachel Brasher Ho spital Vipin BLOOD CULTURE, AEROBIC & 2021-06-05 08:27:00 Rachel Brasher [facility] ANAEROBIC Vipin POC GLUCOSE 2021-06-05 07:42:00 Rcahel Brasher Ho spital [place] POC GLUCOSE 2021-06-05 06:57:00 Rachel Brasher Ho spital [place]ipin POC GLUCOSE 2021-06-05 06:10:00 Holden Nagel Ho spital Ramírez BLOOD CULTURE, AEROBIC & 2021-06-05 04:31:00 Rachel Brasher [facility] ANAEROBIC Vipin POC GLUCOSE 2021-06-05 04:04:00 Rachel Brasher Ho spital [place] POC GLUCOSE 2021-06-05 03:51:00 Rachel Brasher Ho [facility] [place] TYPE AND SCREEN 2021-06-05 03:40:00 Rachel Brasher Ho spital [place] POC GLUCOSE 2021-06-05 03:05:00 Rachel Brasher Ho spital [place] POC GLUCOSE 2021-06-05 02:23:00 Rachel Brasher Ho spital Vipin COVID-19 QUALITATIVE 2021-06-05 02:08:00 Sivan Stewart [facility] RT-PCR HC COMPLETE BLD COUNT 2021-06-05 01:24:00 Sivan Stewart [facility] W/AUTO DIFF PROTHROMBIN TIME WITH INR 2021-06-05 01:24:00 Sivan Stewart [facility] PARTIAL THROMBOPLASTIN 2021-06-05 01:24:00 Sivan Stewart [facility] TIME (PTT) COMPREHENSIVE METABOLIC 2021-06-05 01:24:00 [facility] PANEL CREATINE KINASE, TOTAL 2021-06-05 01:24:00 Sivan Stewart [facility] (CPK) B NATRIURETIC PEPTIDE 2021-06-05 01:24:00 Sivan Stewart [facility] TROPONIN T 2021-06-05 01:24:00 Char Viramontes H ospigabe ESTIMATED GFR 2021-06-05 01:24:00 Sivan Stewart [facility] ECG ED PRELIMINARY 2021-06-05 00:31:28 Sivan Stewart [facility] INTERPRETATION ECG 12-LEAD 2021-06-05 00:19:17 Rachel Brasher POC GLUCOSE 2021-05-25 18:04:00 Awe, Marilu Arvin [facility] POC GLUCOSE 2021-05-25 14:00:00 [facility], [facility]EM[facility] 2021-05-25 10:12:00 Awe, Marilu Arvin [facility] BASIC METABOLIC PANEL 2021-05-25 10:12:00 Awe, [facility] ESTIMATED GFR 2021-05-25 10:12:00 Awe, Marilu Arvin [facility] POC GLUCOSE 2021-05-25 02:49:00 Awe, Marilu Arvin [facility] POC GLUCOSE 2021-05-24 23:33:00 Awe, Marilu Arvin [facility] POC GLUCOSE 2021-05-24 17:56:00 Awe, Marilu Arvin [facility] POC GLUCOSE 2021-05-24 13:59:00 Awe, [facility] 2021-05-24 10:12:00 Awe, Marilu Arvin [facility] BASIC METABOLIC PANEL 2021-05-24 10:12:00 Awe, [facility] ESTIMATED GFR 2021-05-24 10:12:00 Awe, [facility] POC GLUCOSE 2021-05-24 09:59:00 Awe, [facility] POC GLUCOSE 2021-05-24 02:26:00 Awe, [facility] POC GLUCOSE 2021-05-24 00:03:00 Awe, [facility] TRANSFUSE RED BLOOD CELLS 2021-05-23 22:30:00 [facility] TRANSFUSE RED BLOOD CELLS 2021-05-23 21:30:00 [facility] POC GLUCOSE 2021-05-23 19:03:00 Awe, [facility] TYPE AND SCREEN 2021-05-23 14:38:00 [facility] HC COMPLETE BLD COUNT 2021-05-23 14:38:00 [facility] W/AUTO DIFF PREPARE RBC 2021-05-23 14:38:00 [facility] ospital PREPARE PLATELET PHERESIS 2021-05-23 14:38:00 [facility] POC GLUCOSE 2021-05-23 14:35:00 Awe, [facility] 2021-05-23 13:42:30 [facility] CBC HEMOGRAM 2021-05-23 12:31:00 Awe, [facility] BASIC METABOLIC PANEL 2021-05-23 12:31:00 [facility] ESTIM[facility] GFR 2021-05-23 12:31:00 Awe, [facility] POC GLUCOSE 2021-05-23 11:22:00 Awe, [facility] POC GLUCOSE 2021-05-23 03:30:00 Awe, [facility] POC GLUCOSE 2021-05-22 23:20:00 Awe, [facility] POC GLUCOSE 2021-05-22 17:20:00 Awe, [facility] POC GLUCOSE 2021-05-22 13:27:00 Awe, [facility] BASIC METABOLIC PANEL 2021-05-22 12:31:00 [facility] MAGNESI[facility] L[facility] 2021-05-22 12:31:00 Nikki Haynes ospital Rahel CBC HEMOGRAM 2021-05-22 12:31:00 Nikki Haynes [facility] ospital Rahel ESTIMATED GFR 2021-05-22 12:31:00 Nikki Haynes [facility] ospital Rahel POC GLUCOSE 2021-05-22 10:54:00 Awe, [facility] POC GLUCOSE 2021-05-22 07:28:00 Awe, [facility] POC GLUCOSE 2021-05-22 01:11:00 Awe, [facility] HEPATITIS B SURFACE 2021-05-21 21:08:00 [facility] ANTIBODY HEMODIALYSIS 2021-05-21 20:57:40 [facility] POC GLUCOSE 2021-05-21 17:57:00 Awe, [facility] POC GLUCOSE 2021-05-21 13:55:00 Awe, [facility] POC GLUCOSE 2021-05-21 10:41:00 Tom Barber [facility] spital COVID-19 ANTI-SPIKE IGG 2021-05-21 07:43:00 Clyde Olmstead [facility] ANTIBODY TITER Esa BASIC METABOLIC PANEL 2021-05-21 07:43:00 [facility] MAGNESIUM LEVEL 2021-05-21 07:43:00 Nikki Haynes osgio Mcginnis CBC HEMOGRAM 2021-05-21 07:43:00 Nikki Haynes viky Mcginnis COVID-19 SEROLOGY PATIENT 2021-05-21 07:43:00 Clyde Olmstead [facility] SURVEILLANCE Esa ESTIMATED GFR 2021-05-21 07:43:00 Andre Sofia spital [place] LACTIC ACID LEVEL 2021-05-21 07:43:00 Graham Alcocer Raj [facility] POC GLUCOSE 2021-05-21 06:35:00 Tom Barber spital HC COMPLETE BLD COUNT 2021-05-21 02:49:00 [facility] W/AUTO DIFF BASIC METABOLIC PANEL 2021-05-21 02:49:00 [facility] LACTIC ACID LEVEL 2021-05-21 02:49:00 [facility] OSMOLALITY, SERUM 2021-05-21 02:49:00 [facility] BETA HYDROXYBUTYRATE 2021-05-21 02:49:00 [facility] PROCALCITONIN 2021-05-21 02:49:00 [facility] ESTIMATED GFR 2021-05-21 02:49:00 [facility] POC GLUCOSE 2021-05-21 02:34:00 Tom Barbertal HC COMPLETE BLD COUNT 2021-05-21 00:28:00 Char Viramontes [facility] W/AUTO DIFF POC GLUCOSE 2021-05-20 23:57:00 Tom Barber spital BASIC METABOLIC PANEL 2021-05-20 23:20:00 Andre Sofia [facility] [place] LACTIC ACID LEVEL 2021-05-20 23:20:00 Andre Sofia [facility] [place] ESTIMATED GFR 2021-05-20 23:20:00 Andre Sofia [place] VENOUS BLOOD GAS 2021-05-20 23:19:00 Andre Sofia ospital [place] POC GLUCOSE 2021-05-20 23:16:00 Tom Barber spital POC GLUCOSE 2021-05-20 22:16:00 Tom Barber Ho spital POC GLUCOSE 2021-05-20 21:37:00 Tom Barber Ho spital POC GLUCOSE 2021-05-20 20:29:00 Tom Barber Ho spital POC GLUCOSE 2021-05-20 20:26:00 Tom Barber Ho spital POC GLUCOSE 2021-05-20 17:49:00 Tom Barber Ho spital POC GLUCOSE 2021-05-20 17:46:00 Tom Barber spital TRANSFUSE RED BLOOD CELLS 2021-05-20 17:21:00 Kimberlyn [facility] [place] TRANSFUSE PLATELET 2021-05-20 15:52:00 [facility] PHERESIS BASIC METABOLIC PANEL 2021-05-20 15:25:00 Angel [facility] [place] ESTIMATED GFR 2021-05-20 15:25:00 Andre Sofia spital [place] POC GLUCOSE 2021-05-20 14:48:00 Tom Barber Ho spital HEMODIALYSIS 2021-05-20 11:31:20 [facility] POC GLUCOSE 2021-05-20 10:44:00 Tom Barber spital HEPATITIS B SURFACE 2021-05-20 08:49:00 [facility] ANTIGEN HEPATITIS B SURFACE AB, 2021-05-20 08:49:00 [facility] QUANTITATIVE HC COMPLETE BLD COUNT 2021-05-20 08:25:00 [facility] W/AUTO DIFF BASIC METABOLIC PANEL 2021-05-20 08:25:00 [facility] MAGNESIUM LEVEL 2021-05-20 08:25:00 [facility] ospital PHOSPHORUS LEVEL 2021-05-20 08:25:00 [facility] PROTHROMBIN TIME WITH INR 2021-05-20 08:25:00 Leodan Stevenson [facility] ESTIMATED GFR 2021-05-20 08:25:00 Juwan You spital HEMOGLOBIN A1C 2021-05-20 08:25:00 Nikki Haynes ospital Rahel POC GLUCOSE 2021-05-20 06:34:00 Tom Barber spital ARTERIAL BLOOD GAS 2021-05-20 04:36[facility]00 [facility] 2021-05-20 03:42:28 Graham [facility] spital PROTHROMBIN TIME WITH INR 2021-05-20 02:54:00 [facility] HC COMPLETE BLD COUNT 2021-05-20 02:54:00 [facility] DIFF BASIC METABOLIC PANEL 2021-05-20 02:54:00 [facility] LACTIC ACID LEVEL 2021-05-20 02:54:00 [facility]LO[facility] GAS 2021-05-20 02:54:00 Graham [facility] ESTIMATED GFR 2021-05-20 02:54:00 Graham [facility] spital POC GLUCOSE 2021-05-20 02:54:00 Tom Barber spital XR CHEST 1 VW PORTABLE 2021-05-20 02:51:[address] [facility] [place] < 1 HOUR 2021-05-20 01:30:15 Juwan You spital TRANSFUSE RED BLOOD CELLS 2021-05-20 00:59:00 Juwan You [facility] CO AN ELECTIVE 2021-05-20 00:53:01 Sukhjinder Medina spital SUPRAGLOTTIC AIRWAY [place] INCISION AND DRAINAGE, 2021-05-20 00:45:00 Juwan You [facility] HEMATOMA HC COMPLETE BLD COUNT 2021-05-19 22:13:00 [facility] W/AUTO DIFF BASIC METABOLIC PANEL 2021-05-19 22:13:00 [facility] PROTHROMBIN TIME WITH INR 2021-05-19 22:13:00 [facility] PARTIAL THROMBOPLASTIN 2021-05-19 22:13:00 Char Viramontes [facility] TIME (PTT) MAGNESIUM LEVEL 2021-05-19 22:13:00 Char Viramontesist H ospital ESTIMATED GFR 2021-05-19 22:13:00 Juwan You Ho spital POC GLUCOSE 2021-05-19 22:00:00 Errol Luther [facility] SURGICAL PATHOLOGY REQUEST 2021-05-19 21:47:00 Errol Luther [facility] POC GLUCOSE 2021-05-19 21:17:00 Juwan You spital ACTIVATED CLOTTING TIME 2021-05-19 19:12:00 Tom Barber [facility] CO AN ELECTIVE 2021-05-19 18:11:04 Sukhjinder Medina spital SUPRAGLOTTIC AIRWAY [place] LOWER EXTREMITY 2021-05-19 17:59:00 Juwan You spital ANGIOGRAM,POSSIBLE ANGIOPLASTY,POSSIBLE STENT XR CHEST 1 VW PORTABLE 2021-05-19 15:47:37 Juwan You [facility] ESTIMATED GFR 2021-05-19 14:34:00 Juwan You spital POC PANEL 2021-05-19 14:34:00 Juwan You spital TYPE AND SCREEN 2021-05-19 14:05:00 Isabell Dickerson rajeshtal Larry Romero PREPARE RBC 2021-05-19 14:05:00 Char Viramontes ospital PREPARE FRESH FROZEN 2021-05-19 14:05:00 Char Viramontes [facility] PLASMA PREPARE PLATELET PHERESIS 2021-05-19 14:05:00 Char Viramontes [facility] BASIC METABOLIC PANEL 2021-05-19 14:00:00 Jayla [facility] Larry Romero PROTHROMBIN TIME WITH INR 2021-05-19 14:00:00 Jayla [facility] Larry Romero HC COMPLETE BLD COUNT 2021-05-19 14:00:00 [facility] Larry Romero ABO AND RH CONFIRMATION BY 2021-05-19 14:00:00 Juwan You [facility] PROTOCOL ESTIMATED GFR 2021-05-19 14:00:00 Isabell Dickesron COVID-19 QUALITATIVE 2021-05-19 12:40:00 Juwan You [facility] RT-PCR MEDICAL RELEASE/CLEARANCE 2021-05-13 06:01:00 Doctor Unassigned, [facility] FORMS [facility] US DUPLEX ARTERIAL LOWER 2021-05-12 15:21:31 Juwan You [facility] EXTREMITY BILATERAL Emergency department visit 2013-04-15 05:00:00 [facility] for the evaluation and management of a patient, which requires these 3 kamara components within the constraints imposed by the urgency of the patient's clinical condition and/or mental status: A comprehensive history; A comprehensi Injection or Infusion of 2013-04-15 05:00:00 Mem orikatya Banuelos Other Therapeutic or Prophylactic Substance Intravenous infusion, 2013-04-15 05:00:00 Brandon al Vin hydration; each additional hour (List [...] initial substance/drug Eye [facility] EGD [facility] (esophagogastroduodenoscop y) gastric outlet reduction section [facility] Tubal ligation [facility] 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 Plan of Care Planned Activity Planned Date Details Comments Source Future Scheduled 2022-04-25 HEPATITIS B VACCINES [facility] Test 12:43:16 (1 of 3 - 3-dose series) [code = HEPATITIS B VACCINES (1 of 3 - 3-dose series)] Future Scheduled 2022-04-25 COVID-19 VACCINE (#1) [facility] Test 12:43:16 [code = COVID-19 VACCINE (#1)] Future Scheduled 2022-04-25 Pneumococcal Vaccine: [facility] Test 12:43:16 Pediatrics (0 to 5 Years) and At-Risk Patients (6 to 64 Years) (1 - PCV) [code = Pneumococcal Vaccine: Pediatrics (0 to 5 Years) and At-Risk Patients (6 to 64 Years) (1 - PCV)] Future Scheduled 2022-04-25 Hepatitis C screening [facility] Test 12:43:16 (procedure) [code = 016383923] Future Scheduled 2022-04-25 Screening for [facility] Test 12:43:16 malignant neoplasm of cervix (procedure) [code = 652817429] Future Scheduled 2022-04-25 INFLUENZA VACCINE [facility] Test 12:43:16 [code = INFLUENZA VACCINE] Future Scheduled 2022-02-27 HEPATITIS B VACCINES Met [facility] Test 05:24:42 (1 of 3 - 3-dose series) [code = HEPATITIS B VACCINES (1 of 3 - 3-dose series)] Future Scheduled 2022-02-27 COVID-19 VACCINE (#1) [facility] Test 05:24:42 [code = COVID-19 VACCINE (#1)] Future Scheduled 2022-02-27 Pneumococcal Vaccine: [facility] Test 05:24:42 Pediatrics (0 to 5 Years) and At-Risk Patients (6 to 64 Years) (1 - PCV) [code = Pneumococcal Vaccine: Pediatrics (0 to 5 Years) and At-Risk Patients (6 to 64 Years) (1 - PCV)] Future Scheduled 2022-02-27 Hepatitis C screening [facility] Test 05:24:42 (procedure) [code = 306078039] Future Scheduled 2022-02-27 Screening for [facility] Test 05:24:42 malignant neoplasm of cervix (procedure) [code = 482052581] Future Scheduled 2022-02-27 INFLUENZA VACCINE Method [facility] Test 05:24:42 [code = INFLUENZA VACCINE] Future Scheduled 2022-02-27 HEPATITIS B VACCINES [facility] Test 05:24:42 (1 of 3 - 3-dose series) [code = HEPATITIS B VACCINES (1 of 3 - 3-dose series)] Future Scheduled 2022-02-27 COVID-19 VACCINE (#1) [facility] Test 05:24:42 [code = COVID-19 VACCINE (#1)] Future Scheduled 2022-02-27 Pneumococcal Vaccine: [facility] Test 05:24:42 Pediatrics (0 to 5 Years) and At-Risk Patients (6 to 64 Years) (1 - PCV) [code = Pneumococcal Vaccine: Pediatrics (0 to 5 Years) and At-Risk Patients (6 to 64 Years) (1 - PCV)] Future Scheduled 2022-02-27 Hepatitis C screening [facility] Test 05:24:42 (procedure) [code = 728006051] Future Scheduled 2022-02-27 Screening for [facility] Test 05:24:42 malignant neoplasm of cervix (procedure) [code = 711430393] Future Scheduled 2022-02-27 INFLUENZA VACCINE Method [facility] Test 05:24:42 [code = INFLUENZA VACCINE] Future Scheduled 2022-02-27 HEPATITIS B VACCINES [facility] Test 05:24:42 (1 of 3 - 3-dose series) [code = HEPATITIS B VACCINES (1 of 3 - 3-dose series)] Future Scheduled 2022-02-27 COVID-19 VACCINE (#1) [facility] Test 05:24:42 [code = COVID-19 VACCINE (#1)] Future Scheduled 2022-02-27 Pneumococcal Vaccine: [facility] Test 05:24:42 Pediatrics (0 to 5 Years) and At-Risk Patients (6 to 64 Years) (1 - PCV) [code = Pneumococcal Vaccine: Pediatrics (0 to 5 Years) and At-Risk Patients (6 to 64 Years) (1 - PCV)] Future Scheduled 2022-02-27 Hepatitis C screening [facility] Test 05:24:42 (procedure) [code = 489497655] Future Scheduled 2022-02-27 Screening for [facility] Test 05:24:42 malignant neoplasm of cervix (procedure) [code = 174765161] Future Scheduled 2022-02-27 INFLUENZA VACCINE Method [facility] Test 05:24:42 [code = INFLUENZA VACCINE] Future Scheduled 2022-02-27 HEPATITIS B VACCINES [facility] Test 05:24:42 (1 of 3 - 3-dose series) [code = HEPATITIS B VACCINES (1 of 3 - 3-dose series)] Future Scheduled 2022-02-27 COVID-19 VACCINE (#1) [facility] Test 05:24:42 [code = COVID-19 VACCINE (#1)] Future Scheduled 2022-02-27 Pneumococcal Vaccine: [facility] Test 05:24:42 Pediatrics (0 to 5 Years) and At-Risk Patients (6 to 64 Years) (1 - PCV) [code = Pneumococcal Vaccine: Pediatrics (0 to 5 Years) and At-Risk Patients (6 to 64 Years) (1 - PCV)] Future Scheduled 2022-02-27 Hepatitis C screening [facility] Test 05:24:42 (procedure) [code = 632306680] Future Scheduled 2022-02-27 Screening for [facility] Test 05:24:42 malignant neoplasm of cervix (procedure) [code = 259872999] Future Scheduled 2022-02-27 INFLUENZA VACCINE Method [facility] Test 05:24:42 [code = INFLUENZA VACCINE] Future Scheduled 2022-02-27 HEPATITIS B VACCINES [facility] Test 05:24:42 (1 of 3 - 3-dose series) [code = HEPATITIS B VACCINES (1 of 3 - 3-dose series)] Future Scheduled 2022-02-27 COVID-19 VACCINE (#1) [facility] Test 05:24:42 [code = COVID-19 VACCINE (#1)] Future Scheduled 2022-02-27 Pneumococcal Vaccine: [facility] Test 05:24:42 Pediatrics (0 to 5 Years) and At-Risk Patients (6 to 64 Years) (1 - PCV) [code = Pneumococcal Vaccine: Pediatrics (0 to 5 Years) and At-Risk Patients (6 to 64 Years) (1 - PCV)] Future Scheduled 2022-02-27 Hepatitis C screening [facility] Test 05:24:42 (procedure) [code = 989609105] Future Scheduled 2022-02-27 Screening for [facility] Test 05:24:42 malignant neoplasm of cervix (procedure) [code = 327387450] Future Scheduled 2022-02-27 INFLUENZA VACCINE Method [facility] Test 05:24:42 [code = INFLUENZA VACCINE] Future Scheduled 2022-02-27 HEPATITIS B VACCINES [facility] Test 05:24:42 (1 of 3 - 3-dose series) [code = HEPATITIS B VACCINES (1 of 3 - 3-dose series)] Future Scheduled 2022-02-27 COVID-19 VACCINE (#1) [facility] Test 05:24:42 [code = COVID-19 VACCINE (#1)] Future Scheduled 2022-02-27 Pneumococcal Vaccine: [facility] Test 05:24:42 Pediatrics (0 to 5 Years) and At-Risk Patients (6 to 64 Years) (1 - PCV) [code = Pneumococcal Vaccine: Pediatrics (0 to 5 Years) and At-Risk Patients (6 to 64 Years) (1 - PCV)] Future Scheduled 2022-02-27 Hepatitis C screening [facility] Test 05:24:42 (procedure) [code = 336085052] Future Scheduled 2022-02-27 Screening for [facility] Test 05:24:42 malignant neoplasm of cervix (procedure) [code = 944572202] Future Scheduled 2022-02-27 INFLUENZA VACCINE Method [facility] Test 05:24:42 [code = INFLUENZA VACCINE] Future Scheduled 2022-02-27 HEPATITIS B VACCINES [facility] Test 05:24:42 (1 of 3 - 3-dose series) [code = HEPATITIS B VACCINES (1 of 3 - 3-dose series)] Future Scheduled 2022-02-27 COVID-19 VACCINE (#1) [facility] Test 05:24:42 [code = COVID-19 VACCINE (#1)] Future Scheduled 2022-02-27 Pneumococcal Vaccine: [facility] Test 05:24:42 Pediatrics (0 to 5 Years) and At-Risk Patients (6 to 64 Years) (1 - PCV) [code = Pneumococcal Vaccine: Pediatrics (0 to 5 Years) and At-Risk Patients (6 to 64 Years) (1 - PCV)] Future Scheduled 2022-02-27 Hepatitis C screening [facility] Test 05:24:42 (procedure) [code = 047580742] Future Scheduled 2022-02-27 Screening for [facility] Test 05:24:42 malignant neoplasm of cervix (procedure) [code = 491342199] Future Scheduled 2022-02-27 INFLUENZA VACCINE Method [facility] Test 05:24:42 [code = INFLUENZA VACCINE] Future Scheduled 2022-02-27 HEPATITIS B VACCINES [facility] Test 05:24:42 (1 of 3 - 3-dose series) [code = HEPATITIS B VACCINES (1 of 3 - 3-dose series)] Future Scheduled 2022-02-27 COVID-19 VACCINE (#1) [facility] Test 05:24:42 [code = COVID-19 VACCINE (#1)] Future Scheduled 2022-02-27 Pneumococcal Vaccine: [facility] Test 05:24:42 Pediatrics (0 to 5 Years) and At-Risk Patients (6 to 64 Years) (1 - PCV) [code = Pneumococcal Vaccine: Pediatrics (0 to 5 Years) and At-Risk Patients (6 to 64 Years) (1 - PCV)] Future Scheduled 2022-02-27 Hepatitis C screening [facility] Test 05:24:42 (procedure) [code = 938689091] Future Scheduled 2022-02-27 Screening for [facility] Test 05:24:42 malignant neoplasm of cervix (procedure) [code = 079996078] Future Scheduled 2022-02-27 [facility]ACC[facility] 05:24:42 [code = INFLUENZA VACCINE] Future Scheduled 2021-07-22 COVID-19 VACCINE (1) [facility] Test 13:11:04 [code = COVID-19 VACCINE (1)] Future Scheduled 2021-07-22 Hepatitis C screening [facility] Test 13:11:04 (procedure) [code = 539144117] Future Scheduled 2021-07-22 Screening for [facility] Test 13:11:04 malignant neoplasm of cervix (procedure) [code = 586141999] Future Scheduled 2021-07-22 [facility]ACCINE [facility] Test 13:11:04 [code = INFLUENZA VACCINE] Encounters Start End Encounter Admission Attending Care Care Encounter Source Date/Time Date/Time Type Type Clinicians Facility Department ID 2022-04-29 Outpatient [facility] [id number] [place] 09:02:27 [id number] [facility] 2022-04-28 Outpatient [facility] [id number] [place] 12:17:07 [id number] [facility] 2021-12-29 Outpatient [facility] [id number] [place] 11:56:31 [id number] [facility] 2021-12-19 Outpatient [facility] [id number] [place] 14:05:12 [id number] [facility] 2021-12-12 Outpatient [facility] [id number] [place] 12:11:07 [id number] [facility] 2021-12-05 Outpatient [facility] [id number] [place] 20:09:51 [id number] [facility] 2021-10-28 Outpatient [facility] [id number] [place] 17:04:22 [id number] [facility] 2021-07-22 Outpatient nullFlavo [facility] [id number] Memoria 00:10:30 r Medical 05 l [facility] 2021-07-22 Preadmit nullFlavo [id number] Memoria 00:10:30 r [place] [facility] [place] 2021-07-22 Outpatient nullFlavo [facility] [id number] Memoria 00:10:30 r Medical 06 l [facility] 2021-04-22 Emergency [facility] [id number] Univers 02:13:[address] [facility] 2021-04-18 Emergency [facility] [id number] Univers 22:32:23 [facility] 2021-04-17 Emergency [facility] [id number] Univers 17:46:08 [facility] 2022-04-09 2022-04-09 Outpatient Nodal_J G G [id number] [facility] 00:00:00 00:00:00 1020 [facility] 2022-01-02 2022-01-02 [facility] [id number] -2021 [facility] 03:37:00 03:37:00 0715 [facility] 2021-12-15 2021-12-15 Outpatient [facility] [id number] [place] 08:00:00 08:00:00 [facility] 2021-12-02 2021-12-02 Travel 1.2.840.1 1.2.451.837 [id number] Methodi 00:00:00 00:00:[address] 3.430.2.7 0.2.7.3.698 Ho spita .3.130672 084.8 l .8 2021-12-02 2021-12-02 Travel 1.2.840.1 1.2.527.844 4170 [id number] Methodi 00:00:00 00:00:[address] 3.430.2.7 0.2.7.3.698 Ho spita .3.934339 084.8 l .8 2021-11-13 2021-11-13 Transcribe [place], 1.2.840.1 [id number] 21 [id number] Methodi 00:00:00 00:00:00 Orders Jose Miguel G. 59734.1.[address] 3.430.2.7 Hospit a .3.556674 l .8 2021-11-13 2021-11-13 Transcribe [place], 1.2.840.1 [id number] 21 [id number] Methodi 00:00:00 00:00:00 Orders Jose Miguel G. 90396.1.[address] 3.430.2.7 Hospit a .3.862849 l .8 2021-11-05 2021-11-05 [id number] 12:00:00 12:00:00 0518 [facility] l [facility] 2021-10-29 2021-10-29 Telephone Rosy, 1.2.840.1 [id number] 045 [id number] Methodi 00:00:00 00:00:[address] Mohamed 3.430.2.7 Hospit a .3.324299 l .8 2021-10-29 2021-10-29 Telephone Rosy, 1.2.840.1 [id number] 208 [id number] Methodi 00:00:00 00:00:[address] Mohamed 3.430.2.7 Hospit a .3.788435 l .8 2021-08-20 2021-08-20 Outpatient Deshazo_T [facility] [id number] -2021 [facility] 12:30:00 12:30:00 0302 Medica l Group 2021-07-08 2021-07-08 Office Ann, 1.2.840.1 [id number] 4323 Methodi 13:00:00 14:25:36 Visit Bessie 91234.1.[address] [place] 3.430.2.7 Hosp jo-ann .3.722003 l .8 2021-07-08 2021-07-08 Office Ann, 1.2.840.1 [id number] Methodi 13:00:00 14:25:36 Visit Bessie 12531.1.[address] [place] 3.430.2.7 Hosp jo-ann .3.560590 l .8 2021-07-08 2021-07-08 Telephone Anthony, 1.2.840.1 [id number] 2099 [id number] Methodi 00:00:00 00:00:[address] 3.430.2.7 Hospit a .3.593582 l .8 2021-07-08 2021-07-08 Travel 1.2.840.1 1.2.548.285 1708 [id number] Methodi 00:00:00 00:00:[address] 3.430.2.7 0.2.7.3.698 Ho spita .3.697004 084.8 l .8 2021-07-08 2021-07-08 Telephone Anthony, 1.2.840.1 [id number] 2099 [id number] Methodi 00:00:00 00:00:[address] 3.430.2.7 Hospit a .3.943574 l .8 2021-07-08 2021-07-08 Travel 1.2.840.1 1.2.067.646 1602 [id number] Methodi 00:00:00 00:00:[address] 3.430.2.7 0.2.7.3.698 Ho spita .3.701882 084.8 l .8 2021-07-03 2021-07-03 CAV Melany 2.16.840. 2.16.840.1. CLAC [id number] [facility] 19:00:00 20:00:00 Vladimir 1.389134. 610466.4.6. 467 [facility] 4.6.50539 [id number] 2021-07-03 2021-07-03 Telephone Seth, 1.2.840.1 [id number] 2099 [id number] Methodi 00:00:00 00:00:[address] [place] 3.430.2.7 Hosp jo-ann .3.664218 l .8 2021-07-03 2021-07-03 Telephone Seth, 1.2.840.1 [id number] 2099 [id number] Methodi 00:00:00 00:00:[address] [place] 3.430.2.7 Hosp jo-ann .3.926613 l .8 2021-06-24 2021-06-24 [id number] -[facility] 05:31:00 05:31:00 0104 Medica l Group 2021-06-23 2021-06-23 Telephone Anthony, 1.2.840.1 [id number] 2099 [id number] Methodi 00:00:00 00:00:[address] 3.430.2.7 Hospit a .3.859188 l .8 2021-06-23 2021-06-23 Telephone Anthony, 1.2.840.1 [id number] 2099 [id number] Methodi 00:00:00 00:00:[address] 3.430.2.7 Hospit a .3.995651 l .8 2021-06-04 [facility]1 1 90467 [id number] Methodi 18:20:00 18:13:00 Encounter Rachel Brasher 07848.1.[address] [facility] 3.430.2.7 Hospita Shanda Shahid .3.312874 l Aurelio Schumacher .8 2021-06-04 2021-06-18 [facility] 1.2.840.1 1 2099 [id number] Methodi 18:20:00 18:13:00 Encounter Gregorio Brashern Vipin 46428.1.[address] [facility] 3.430.2.7 Hospita CorrieJuan C rutherfordal Kalen .3.434831 l Endy Aurelio .8 2021-06-16 2021-06-16 Anesthesia Yousif, 1.2.840.1 [id number] Methodi 23:59:59 23:59:59 Event Alesia Coelho 60995.1.[address] 3.430.2.7 Hospit a .3.917836 l .8 2021-06-16 2021-06-16 Surgery Joe, 1.2.840.1 [id number] 3567 Methodi 13:30:00 17:45:00 Mando 35262.1.1 582 [facility] 3.430.2.7 Hosp jo-ann .3.205270 l .8 2021-06-16 2021-06-16 Surgery Diaz, 1.2.840.1 [id number] 3713 Methodi 13:30:00 17:45:00 Mando 33829.1.1 582 [facility] 3.430.2.7 Hosp jo-ann .3.298524 l .8 2021-06-16 2021-06-16 Anesthesia Jose Carlos, 1.2.840.1 [id number] 687 [id number] Methodi 15:19:00 17:19:00 Event Veto 64079.1.1 309 [address] V. 3.430.2.7 Hospit a .3.579430 l .8 2021-06-16 2021-06-16 Anesthesia Jose Carlos, 1.2.840.1 [id number] 848 [id number] Methodi 15:19:00 17:19:00 Event Modestothi 49369.1.1 309 s t V. 3.430.2.7 Hospit a .3.904486 l .8 2021-06-10 2021-06-10 Surgery PatiJuwan 1.2.840.1 [id number] 87470 Methodi 08:00:00 10:30:[address] 3.430.2.7 Hospit a .3.805389 l .8 2021-06-10 2021-06-10 Surgery Juwan You 1.2.840.1 [id number] 96301 79280 Methodi 08:00:00 10:30:[address] 3.430.2.7 Hospit a .3.624750 l .8 2021-06-10 2021-06-10 Anesthesia Doc, 1.2.840.1 [id number] 580 [id number] Methodi 08:26:00 09:40:00 Event Sofi 52428.1.[address] Marquita 3.430.2.7 Hosp jo-ann .3.445276 l .8 2021-06-10 2021-06-10 Anesthesia Doc, 1.2.840.1 [id number] 032 [id number] Methodi 08:26:00 09:40:00 Event Sofi 40195.1.[address] Marquita 3.430.2.7 Hosp jo-ann .3.253869 l .8 2021-06-09 2021-06-09 Prep for Robert, 1.2.840.1 [id number] 030 [id number] Methodi 00:00:00 00:00:00 Surgery Gayle 53511.1.[address] 3.430.2.7 Hospit a .3.954609 l .8 2021-06-09 2021-06-09 Prep for Robert, 1.2.840.1 [id number] 871 [id number] Methodi 00:00:00 00:00:00 Surgery Gayle 29914.1.[address] 3.430.2.7 Hospit a .3.677076 l .8 2021-06-09 2021-06-09 Prep for Robert, 1.2.840.1 [id number] 497 [id number] Methodi 00:00:00 00:00:00 Surgery Gayle 83097.1.[address] 3.430.2.7 Hospit a .3.229472 l .8 2021-06-09 2021-06-09 Prep for Robert, 1.2.840.1 [id number] 205 [id number] Methodi 00:00:00 00:00:00 Surgery Gayle 59742.1.[address] 3.430.2.7 Hospit a .3.772773 l .8 2021-06-05 2021-06-05 Anesthesia Frankie Chowdhury Jovanni 1.2.840.1 [id number] Methodi 10:16:00 11:41:00 Event Chandler Silverman 96973.1.[address] 3.430.2.7 Hospit a .3.221394 l .8 2021-06-05 2021-06-05 Anesthesia Frankie Chowdhury 1.2.840.1 [id number] Methodi 10:16:00 11:41:00 Event Chandler Silverman 42366.1.[address] 3.430.2.7 Hospit a .3.402964 l .8 2021-06-05 2021-06-05 Surgery Pati Juwan 1.2.840.1 [id number] 33559 Methodi 09:30:00 11:05:[address] 3.430.2.7 Hospit a .3.680902 l .8 2021-06-05 2021-06-05 Surgery PatiTory 1.2.840.1 [id number] 21001 78117 Methodi 09:30:00 11:05:[address] 3.430.2.7 Hospit a .3.132034 l .8 2021-06-03 2021-06-03 Prep for Anthony, 1.2.840.1 [id number] 90278 09519 Methodi 00:00:00 00:00:00 Surgery Forrest 08459.1.[address] 3.430.2.7 Hospit a .3.142892 l .8 2021-06-03 2021-06-03 Telephone Adelita, 1.2.840.1 [id number] 446 [id number] Methodi 00:00:00 00:00:00 Crysandria 11510.1.1 218 s t 3.430.2.7 Hospit a .3.317366 l .8 2021-06-03 2021-06-03 Prep for Anthony, 1.2.840.1 [id number] 15030 04723 Methodi 00:00:00 00:00:00 Surgery Forrest 16878.1.[address] 3.430.2.7 Hospit a .3.415183 l .8 2021-06-03 2021-06-03 Telephone Ureña, 1.2.840.1 [id number] 534 [id number] Methodi 00:00:00 00:00:00 Crysandria 07604.1.1 218 s t 3.430.2.7 Hospit a .3.800105 l .8 2021-05-28 2021-05-28 Outpatient Adams_R [facility] [id number] 021 [facility] 05:00:00 05:00:00 1208 Medica l Group 2021-05-27 2021-05-27 Patient Tam, 1.2.840.1 [id number] 960 [id number] Methodi 00:00:00 00:00:00 Outreach Maria M [address]8425.1.[address] 3.430.2.7 Hospit a .3.600956 l .8 2021-05-27 2021-05-27 Travel 1.2.840.1 1.2.623.828 3847 164099 Methodi 00:00:00 00:00:[address] 3.430.2.7 0.2.7.3.698 Ho spita .3.471777 084.8 l .8 2021-05-27 2021-05-27 Orders Boles, 1.2.840.1 [id number] 2100 [id number] Methodi 00:00:00 00:00:00 Only Anila 96796.1.[address] 3.430.2.7 Hospit a .3.142999 l .8 2021-05-27 2021-05-27 Patient Tam, 1.2.840.1 [id number] 468 [id number] Methodi 00:00:00 00:00:00 Outreach Maria M 04308.1.[address] 3.430.2.7 Hospit a .3.061446 l .8 2021-05-27 2021-05-27 Travel 1.2.840.1 1.2.828.002 6527 821510 Methodi 00:00:00 00:00:[address] 3.430.2.7 0.2.7.3.698 Ho spita .3.525752 084.8 l .8 2021-05-27 2021-05-27 Orders Boles, 1.2.840.1 [id number] 2100 754039 Methodi 00:00:00 00:00:00 Only Anila 27707.1.[address] 3.430.2.7 Hospit a .3.118132 l .8 2021-05-26 2021-05-26 Outpatient Adams_R DM [facility] [id number] 021 [facility] 03:30:00 03:30:00 1206 Medica l Group 2021-05-26 2021-05-26 Telephone Anthony, 1.2.840.1 [id number] 2100 [id number] Methodi 00:00:00 00:00:[address] 3.430.2.7 Hospit a .3.304220 l .8 2021-05-26 2021-05-26 Telephone Anthony, 1.2.840.1 [id number] 2100 [id number] Methodi 00:00:00 00:00:[address] 3.430.2.7 Hospit a .3.278739 l .8 2021-05-19 2021-05-25 [facility] Juwan You 1.2.840.1 [id number] 2100 [id number] Methodi 06:00:00 15:59:00 Tom Peres 86133.1.[address] Marilu Kochun 3.430.2.7 Hospita .3.763964 l .8 2021-05-19 2021-05-25 [facility] Juwan You 1.2.840.1 [id number] 2100 [id number] Methodi 06:00:00 15:59:00 Encounter Tom Barber 51429.1.[address] Marilu Koch 3.430.2.7 Hospita .3.585004 l .8 2021-05-21 2021-05-21 Outpatient DMG DM [id number] 021 [facility] 03:30:00 03:30:00 1201 Medica l Group 2021-05-19 2021-05-19 Anesthesia Adam, 1.2.840.1 [id number] 21 [id number] Methodi 18:45:00 20:31:00 Event Sukhjinder 27448.1.[address] [place] 3.430.2.7 Hospit a .3.752534 l .8 2021-05-19 2021-05-19 Anesthesia Adam, 1.2.840.1 [id number] Methodi 18:45:00 20:31:00 Event Sukhjinder 73105.1.[address] [place] 3.430.2.7 Hospit a .3.507242 l .8 2021-05-19 2021-05-19 Surgery Juwan You 1.2.840.1 [id number] Methodi 18:50:00 19:55:[address] 3.430.2.7 Hospit a .3.488683 l .8 2021-05-19 2021-05-19 Surgery Juwan You 1.2.840.1 [id number] Methodi 18:50:00 19:55:[address] 3.430.2.7 Hospit a .3.325598 l .8 2021-05-19 2021-05-19 Anesthesia Sukhjinder Medina 1.2.840.1 [id number] Methodi 12:00:00 15:14:00 Event Hanane Ledezma 21721.1.[address] 3.430.2.7 Hospit a .3.135021 l .8 2021-05-19 2021-05-19 Anesthesia Sukhjinder Medina 1.2.840.1 [id number] Methodi 12:00:00 15:14:00 Event Hanane Ledezma 78675.1.[address] 3.430.2.7 Hospit a .3.826470 l .8 2021-05-19 2021-05-19 Surgery Juwan You 1.2.840.1 [id number] Methodi 12:05:00 14:45:[address] 3.430.2.7 Hospit a .3.723999 l .8 2021-05-19 2021-05-19 Surgery Juwan You 1.2.840.1 [id number] Methodi 12:05:00 14:45:[address] 3.430.2.7 Hospit a .3.945824 l .8 2021-05-19 2021-05-19 Travel 1.2.840.1 1.2.063.560 7961 699219 Methodi 00:00:00 00:00:[address] 3.430.2.7 0.2.7.3.698 Ho spita .3.187501 084.8 l .8 2021-05-19 2021-05-19 Travel 1.2.840.1 1.2.008.350 9960 373838 Methodi 00:00:00 00:00:[address] 3.430.2.7 0.2.7.3.698 Ho spita .3.881243 084.8 l .8 2021-05-14 2021-05-14 Telephone Corin, 1.2.840.1 [id number] Methodi 00:00:00 00:00:[address] 3.430.2.7 Hospit a .3.558051 l .8 2021-05-14 2021-05-14 Prep for Anthony, 1.2.840.1 [id number] 11395 80926 Methodi 00:00:00 00:00:00 Surgery Forrest 45371.1.[address] 3.430.2.7 Hospit a .3.829283 l .8 2021-05-13 2021-05-13 Orders Doctor JOANNA 1.2.840.114 [id number] [address] [facility] 00:00:00 00:00:00 Only Unassigned, MAGDALENO 350.1.13.10 [facility] [place] [facility] 4.2.7.2.686 Baljinder as [id number] [address] 2021-05-12 2021-05-12 Office Pati Juwan 1.2.840.1 [id number] Methodi 09:00:00 09:32:[address] 3.430.2.7 Hospit a .3.917154 l .8 2021-05-12 2021-05-12 Outpatient JUWAN YOU [facility] [id number] [address] [place] 00:00:00 00:00:[address] 2021-05-12 2021-05-12 Telephone Anthony, 1.2.840.1 [id number] 2100 846043 Methodi 00:00:00 00:00:[address] 3.430.2.7 Hospit a .3.644976 l .8 2021-05-12 2021-05-12 Travel 1.2.840.1 1.2.235.888 2802 948637 Methodi 00:00:00 00:00:[address] 3.430.2.7 0.2.7.3.698 Ho spita .3.969896 084.8 l .8 2021-05-08 2021-05-08 Orders Anthony, 1.2.840.1 [id number] 199126 3710 Methodi 00:00:00 00:00:00 Only Forrest 93242.1.[address] 3.430.2.7 Hospit a .3.524074 l .8 2021-05-08 2021-05-08 Telephone Ramana, 1.2.840.1 [id number] 21 [id number] Methodi 00:00:00 00:00:[address] 3.430.2.7 Hospit a .3.068623 l .8 2021-05-05 2021-05-05 Office Juwan You 1.2.840.1 [id number] 58433 73994 Methodi 14:00:00 15:41:[address] 3.430.2.7 Hospit a .3.579848 l .8 2021-05-05 2021-05-05 Travel 1.2.840.1 1.2.615.132 6154 731057 Methodi 00:00:00 00:00:[address] 3.430.2.7 0.2.7.3.698 Ho spita .3.180767 084.8 l .8 2021-05-01 2021-05-01 Telephone Joe, 1.2.840.1 [id number] 2100 305313 Methodi 00:00:00 00:00:00 Mando 85153.1.1 602 [facility] 3.430.2.7 Hosp jo-ann .3.515318 l .8 2021-04-08 2021-04-08 [facility] [id number] Univers 09:00:00 09:00:00 MONA low of [facility] 2021-03-24 2021-03-24 Transition Misha Garcia 1.2.840.114 [id number] Univers 00:00:00 00:00:00 of Care Missy Guzman 350.1.13.10 it y of [place] 4.2.7.2.686 [place] [phone] [address] 2021-03-19 2021-03-21 [facility] Jimena Easton 1.2.840.1 [id number] Univers 08:24:00 23:08:00 Encounter Eze Dias 62131.1.1 ity of [place], Obed A 3.104.2.7 [place] .3.721847 Medica l .8 Branch 2021-03-21 2021-03-21 [id number] Devoted 08:01:00 08:01:00 1001 Medica l Group 2021-03-19 2021-03-19 Orders Doctor 1.2.840.8 [id number] Univers 00:00:00 00:00:00 Only Unassigned, 71665.1.1 ity of [place] 3.104.2.7 [place] .3.397494 Medica l .8 Branch 2021-03-19 2021-03-19 Travel 1.2.840.1 1.2.309.685 [id number] Univers 00:00:00 00:00:00 15372.1.1 350.1.13.10 ity of 3.104.2.7 4.[place].7.3.698 [place] .3.472625 084.8 Medica l .8 [place] 2021-01-21 2021-01-29 Inpatient [facility] [id number] [facility] 15:50:00 20:14:[address] 2021-01-21 2021-01-29 Inpatient U [facility] 7512 [facility] 10:50:00 15:14:00 MONISHA 2021-01-21 2021-01-29 Outpatient [facility] [id number] 10:50:00 15:14:00 Monisha 2021-01-24 2021-01-24 Outpatient [facility] [id number] Devoted 08:00:00 08:00:00 0806 Medica l Group 2021-01-21 2021-01-21 Outpatient [facility] [id number] 10:50:00 10:50:00 Monisha 2021-01-03 2021-01-03 Office DOMINIQUE Diane 1.2.840.114 [id number] 07:44:43 09:30:54 Visit Alexandr ALTMAN 350.1.13.58 MEDICAL 9.2.7.2.686 [facility] [phone] 1 2021-01-03 2021-01-03 Office Benedicto DOMINIQUE 1.2.840.114 [id number] [place] 07:44:43 09:30:54 Visit Alexandr ALTMAN 350.1.13.58 H [facility] 9.2.7.2.686 [facility] [id number] 1 2020-12-26 2020-12-26 [facility] [id number] Univers 10:30:00 10:30:00 SENDIL [facility] 2020-12-24 2020-12-25 Outpatient nullFlavo Digestive [id number] Memoria 15:32:00 04:59:00 r Disease 11 l [facility] [place] 2020-12-24 2020-12-24 Outpatient WRIGHT, [facility] 7511 [facility] 10:32:00 23:59:00 HUI 2020-12-24 2020-12-24 Outpatient Wright, [facility] [id number] 10:32:00 23:59:00 Hui Madden 2020-11-12 2020-11-12 [facility] [id number] Univers 09:00:00 09:00:00 JOSE LUIS [facility] 2020-10-27 2020-10-27 [facility] 1.2.840.114 [id number] 00:00:00 00:00:00 (Out) Oz Lehman 350.1.13.10 [place] 4.2.7.2.686 Professio [phone] [address] 2020-10-27 2020-10-27 [facility]an [facility] 1.2.840.114 [id number] Univers 00:00:00 00:00:00 (Out) Oz Lehman 350.1.13.10 maranda [facility] 4.2.7.2.686 Baljinder[place] s Professio [phone] Ks dical [address] 2020-10-24 2020-10-24 Orders Doctor MARSHALL 1.2.840.114 [id number] 00:00:00 00:00:00 Only Unassigned, MAGDALENO 350.1.13.10 [place] [facility] [id number] 009 2020-10-24 2020-10-24 Orders Doctor JOANNA 1.2.840.114 [id number] Univers 00:00:00 00:00:00 Only Unassigned, MAGDALENO 350.1.13.10 ity of [place] [facility] 4.2.7.2.686 Baljinder as [phone] [address] 2020-09-24 2020-09-24 Refill [facility] 1.2.840.114 [id number] 00:00:00 00:00:00 [facility] 350.1.13.10 [place] 4.2.7.2.686 Professio [phone] [address] 2020-09-24 2020-09-24 Refill [facility] 1.2.840.114 [id number] Univers 00:00:00 00:00:00 [facility] 350.1.13.10 i ty of [place].2.[place] [phone] Ks dical [facility] 220 [facility] 2020-09-09 2020-09-09 Patient [facility] 1.2.840.114 [id number] 00:00:00 00:00:00 Outreach Earl PRIMARY 350.1.13.10 Manuel CARE 4.2.7.2.686 PAVILLION [id number] 388 2020-09-09 2020-09-09 [facility] 1.2.840.114 [id number] Univers 00:00:00 00:00:00 Outreach Earl PRIMARY 350.1.13.10 i ty of [facility] 4.2.7.2.686 [place] [phone] [place]s dical 388 [place] 2020-08-06 2020-08-06 Outpatient R CARLOS [facility] [id number] Univers 14:30:00 14:30:00 JOSE LUIS low [facility] 2020-08-05 2020-08-05 Outpatient R JAIME [facility] [id number] Univers 13:30:00 13:30:00 DEJA ity of [facility] 2020-07-23 2020-07-23 [facility] 1.2.840.114 [id number] [facility] 13:39:08 23:59:00 Encounter Deja PRIMARY 350.1.13.10 ity of A CARE 4.2.7.2.686 [place] [phone] [place] dical 807 [place] 2020-07-23 2020-07-23 Office [facility] 1.2.732.487 [id number] 13:31:20 14:37:36 Visit Deja PRIMARY 350.1.13.10 A CARE 4.2.7.2.686 PAVILLION [phone] [facility] 2020-07-23 2020-07-23 Office [facility] 1.2.524.348 [id number] [facility] 13:31:20 14:37:36 Visit Deja PRIMARY 350.1.13.10 ity of [place] 4.2.7.2.[place] [phone] Ks dical 198 [place] 2020-07-23 2020-07-23 Outpatient R [facility] [id number] Univers 13:30:00 13:30:00 DEJA ity of [facility] 2020-07-09 2020-07-09 Outpatient R [facility] [id number] Univers 09:00:00 09:00:00 ity of [facility] 2020-07-03 2020-07-03 Telephone [facility] 1.2.877.940 [id number] Univers 00:00:00 00:00:00 Oz Lehman 350.1.13.10 ity of [place]2.7.2.[place] [phone] Ks dical nal 059 [facility] 2020-06-27 2020-06-27 [facility] 1.2.840.114 [id number] Univers 10:05:43 11:00:00 Visit Oz Lehman 350.1.13.10 ity of [place].2.7.2.[place] [phone] K[place] dical nal [address] [place] [address] 2020-06-27 2020-06-27 Office Lamin RUST 1.2.840.114 [id number] Univers 10:05:43 11:00:00 Visit Oz LEHMAN 350.1.13.10 ity [facility] 4.2.7.2.[place]ESS[place] [phone] [facility] NAL [address] [place] [address] 2020-06-27 2020-06-27 Outpatient R LAMIN [facility] [id number] Univers 09:30:00 11:00:[address] [facility] 2020-06-27 2020-06-27 Outpatient R LAMIN [facility] [id number] Univers 09:30:00 09:30:[address] [facility] 2020-05-28 2020-05-28 Laboratory Pc, Adc Echo Room 1 - RUST 1 .2.840.114 [id number] Univers 08:01:11 08:48:06 Only Oz Kimble 350.1.13. 10 ity of [place] 4.2.7.2.[place] [phone] [address] 2020-05-28 2020-05-28 Outpatient R [facility] [id number] Univers 08:00:00 08:00:00 ity of [facility] 2020-05-10 2020-05-10 Nurse Visit, Adc Nurse RUST 1.2.840.1 14 [id number] Univers 08:31:07 08:43:46 Visit Oz Kimble 350.1.13. 10 ity of [place]2.7.2.[place] [phone] [address] 2020-05-10 2020-05-10 [facility] [id number] Univers 08:30:00 08:30:[address] [facility] 2020-05-07 2020-05-07 Outpatient R [facility] [id number] Univers 08:00:00 08:00:00 ity of [facility] 2020-05-01 2020-05-01 Office [facility] 1.2.840.114 [id number] Univers 11:02:55 12:04:48 Visit Jose Luis Lehman 350.1.13.10 i ty of [place] 4.2.7.2.[place] [phone] Ks dical nal 220 [facility] 2020-05-01 2020-05-01 Outpatient R CARLOS [facility] [id number] Univers 10:30:00 10:30:[address] [facility] 2020-04-25 2020-04-25 Office [facility] 1.2.840.114 [id number] Univers 10:07:58 10:48:50 Visit Carlosil Mami Lehman 350.1.13.10 ity of [place] 4.2.7.2.[place] [phone] Ks dical nal 059 [facility] 2020-04-25 2020-04-25 Outpatient R LAMIN [facility] [id number] Univers 10:00:00 10:00:[address] [facility] 2020-04-25 2020-04-25 Orders Doctor JOANNA 1.2.840.114 [id number] Univers 00:00:00 00:00:00 Only Unassigned, MAGDALENO 350.1.13.10 ity of [place] [facility] 4.2.7.2.686 Baljinder as [phone] [address] 2020-04-05 2020-04-05 Outpatient R LAMIN [facility] [id number] Univers 09:30:00 09:30:[address] [facility] 2020-04-03 2020-04-[address] 2, Adc Lab RUST 1.2.840.114 [id number] Univers 13:13:38 13:28:38 Visit Mona Bhat 350.1.13.10 ity of [place].7.2.[place] [phone] [place] dical nal 353 [facility] 2020-04-03 2020-04-03 [facility] [id number] Univers 13:00:00 13:00:[address] [facility] 2020-04-02 2020-04-02 [facility] 1.2.840.114 [id number] Univers 09:00:33 09:54:22 Visit Mona Centenoton 350.1.13.10 ity of [place] 4.2.7.2.686 [place] [phone] Ks dic[address] 2020-04-02 2020-04-02 Outpatient R [facility] [id number] Univers 08:30:00 08:30:[address] [facility] 2020-04-02 2020-04-02 Outpatient R [facility] [id number] Univers 08:30:00 08:30:00 [facility] 2020-04-02 2020-04-02 Emergency [facility] 1.2.840.114 [id number] Univers 00:24:00 01:09:00 Marlin Lehman 350.1.13.10 i ty of [place].2.7.2.686 [place] [phone] [facility] 084 [place] 2020-04-02 2020-04-02 Orders Doctor JOANNA 1.2.840.114 [id number] Univers 00:00:00 00:00:00 Only Unassigned, MAGDALENO 350.1.13.10 ity of [place] [facility] 4.2.7.2.[phone] [facility] 009 [place] 2020-03-16 2020-03-16 [facility] 1.2.840.114 [id number] Univers 00:00:00 00:00:00 Yury Lehman 350.1.13.10 i ty of [place].2.[place] [phone] [facility] 134 [facility] 2020-03-08 2020-03-08 Outpatient R [facility] [id number] Univers 11:00:00 11:00:00 LIMA currie [facility] 2020-03-07 2020-03-07 Telephone [facility] 1.2.840.114 [id number] Univers 00:00:00 00:00:00 Lima Levi 350.1.13.10 ity of [place] 4.2.7.2.686 [place] Profess[place] [phone] Ks dical nal 188 [facility] 2020-02-06 2020-02-06 [facility] [id number] Univers 09:30:00 09:30:00 [facility] 2020-02-06 2020-02-06 Office [facility] 1.2.840.114 [id number] Univers 08:57:01 09:24:05 Visit Brandon Levi 350.1.13.10 i ty of [place] 4.2.7.2.686 [place] Profess[place] [phone] [place] dical nal 044 [facility] 2020-01-25 2020-01-31 Inpatient 1 Chivo Rei [facility] GPY [id number] 21:31:00 18:15:00 Rei Waldron [facility] 2020-01-24 2020-01-24 [facility] [id number] Univers 09:45:00 09:45:[address] [facility] 2020-01-23 2020-01-23 Outpatient [facility] [id number] Univers 10:30:00 10:30:[address] [facility] 2019-12-18 2019-12-18 Outpatient R BARRERA [facility] [id number] Univers 08:00:00 08:00:[address] [facility] 2019-12-04 2019-12-04 Outpatient R DORA [facility] [id number] Univers 14:15:00 14:15:00 BRANDON [facility] 2019-11-06 2019-11-06 TelemedicMAGDY Ayala 1.2.840.114 [id number] Univers 07:49:37 08:46:52 ne Visit Yissel Parr 350.1.13.10 ity of [facility] 4.2.7.2.686 Baljinder [phone] [facility] BLDG. 136 [place] 2019-11-06 2019-11-06 Outpatient R BARRERA, [facility] [id number] Univers 08:00:00 08:00:[address] [facility] 2019-10-01 2019-10-01 Emergency [facility] 1.2.939.775 [id number] Univers 15:47:29 19:01:00 Stacie Lehman 350.1.13.10 i ty cecily [place]2.[place].2.[place] [phone] [address] 2019-09-05 2019-09-05 Outpatient R DORA, [facility] [id number] Univers 13:30:00 13:30:00 BRANDON [facility] 2019-08-28 2019-08-28 Outpatient R PEG ZEKE [facility] [id number] Univers 15:00:00 15:00[facility] 2019-02-27 2019-02-27 Telephone [facility] 1.2.840.114 [id number] Univers 00:00:00 00:00:00 Adán T SPECIALTY 350.1.13.10 ity of [facility] 4.2.7.2.[place] C[place] AT [phone] [facility] [place] 188 [facility] 2019-02-25 2019-02-25 Telephone [facility] 1.2.840.114 [id number] Univers 00:00:00 00:00:00 Adán T SPECIALTY 350.1.13.10 ity of C[place]2.7.2.[place] C[place] AT [phone] [facility] [place] 205 [facility] 2019-02-22 2019-02-22 [facility] Oz Kimble 1.2.8 40.114 [id number] Univers 09:19:22 23:59:00 Encounter Aimee Frederick 350.1.13.10 ity of [facility] 4.2.7.2.686 Baljinder as [phone] [address] 2019-02-22 2019-02-22 [facility] Oz Kimble 1.2.8 40.114 [id number] Univers 08:00:00 09:18:00 Encounter Outpt-Josy, [facility] 350.1.13.10 ity of Hospital 4.2.7.2.[phone] [facility] 247 [place] 2019-02-17 2019-02-17 Office Alexarah RUST 1.2.840.114 [id number] Univers 13:09:08 13:54:39 Visit Gary gray [facility] 350.1.13.10 ity of [place]2.7.2.[place] [address] [phone] [facility] [address] [place] 2019-02-17 2019-02-17 Orders Doctor JOANNA 1.2.840.114 [id number] Univers 00:00:00 00:00:00 Only Unassigned, MAGDALENO 350.1.13.10 ity of [place] [facility] 4.2.7.2.[phone] [facility] 009 [place] 2019-01-25 2019-01-25 Telephone Traci Kimble 1.2.294.610 [id number] Univers 00:00:00 00:00:00 Sendbhavana [place] 350.1.13.10 ity of Hospital 4.2.7.2.686 Baljinder as [phone] [address] 2019-01-25 2019-01-25 Telephone Traci Kimble 1.2.116.186 [id number] Univers 00:00:00 00:00:00 Oz [place] 350.1.13.10 ity of Hospital 4.2.7.2.686 Baljinder as [phone] [address] 2019-01-20 2019-01-20 Office Lamin RUST 1.2.840.114 [id number] Univers 08:55:54 09:56:43 Visit Oz Lehman 350.1.13.10 ity of [place].2.[place] Profess[place] [phone] [facility] 059 [address] [facility] 2019-01-14 2019-01-15 Emergency [place], TRAUMA 1.2.840.114 [id number] Univers 18:20:35 00:24:00 Brandon [facility] 350.1.13.10 it y of [place]2.7.2.686 [place] [phone] [place] [address] [place] 2019-01-13 2019-01-13 Office Digna RUST 1.2.840.114 [id number] [facility] 08:10:44 09:19:41 Visit Lima Lehman 350.1.13.10 ity of [place]2.7.2.686 [place] Brittany[place] [phone] Ks dical nal 205 [address] [facility] 2018-05-24 2018-05-24 Outpatient SARAHY DORADO, [facility] [id number] [facility] 00:00:00 00:00:00 LY 2016-07-24 2016-07-30 Inpatient [facility] [id number] Memoria 02:04:00 16:20:00 r Vin [address] [place] [address] 2016-07-23 2016-07-30 Outpatient Yaquelin [facility] [id number] 20:04:00 10:20:00 Luna 10 2016-06-10 2016-06-15 Inpatient [facility] [id number] Memoria 16:02:00 18:23:[address] r Vin [address] [place] [address] 2016-06-10 2016-06-15 Outpatient Franck [facility] [id number] 10:02:00 12:23:00 Joe Yan 09 2014-06-26 2014[facility] [id number] Memoria 05:25:00 15:14:00 Emergency r [address] 2014-06-25 2014-06-26 Outpatient [place], 2.16.840. 2.16.840. 1. [id number] 23:25:00 09:14:00 Atul 1.179159. [id number] 08 Cem 3.615.0.1 5.0.656 02 7154-10-25 2013-04-15 Outpatient 2.16.840. 2.16.840.1. 4 [id number] Memoria 21:04:00 01:45:00 1.354895. [id number] 07 l 3.615.0.1 5.0.101 Jake n [facility] 2013-04-14 2013-04-15 Outpatient 2.16.840. 2.16.840.1. 4 [id number] Memoria 21:04:00 01:45:00 1.543512. [id number] 07 l 3.615.0.1 5.0.101 Jake n [facility] 2013-04-14 2013-04-15 Outpatient 2.16.840. 2.16.840.1. 4 [id number] Memoria 21:04:00 01:45:00 1.004641. [id number] 07 l 3.615.0.1 5.0.101 Jake n [facility] 2013-04-14 2013-04-15 Outpatient 2.16.840. 2.16.840.1. 4 [id number] Memoria 21:04:00 01:45:00 1.617681. [id number] 07 l 3.615.0.1 5.0.101 Jake n [facility] 2013-04-14 2013-04-15 Outpatient 2.16.840. 2.16.840.1. 4 [id number] Memoria 21:04:00 01:45:00 1.062404. [id number] 07 l 3.615.0.1 5.0.101 Jake n [facility] 2013-04-14 2013-04-15 Emergency nullFlavo [id number] Memoria 21:04:00 01:45:00 r [facility] 07 [facility] 2012-03-14 2012-03-14 Emergency nullFlavo [id number] Memoria 16:32:00 22:39:00 r [facility] 04 [facility] 2011-11-28 2011-11-30 OU nullFlavo [facility] [id number] Memoria 12:16:00 20:40:00 r [facility] 03 [facility] 2011-09-18 2011-09-18 Emergency nullFlavo [facility] [id number] Memoria 08:23:00 13:34:00 r [facility] 02 [facility] 2011-09-01 2011-09-09 Inpatient nullFlavo [facility] [id number] Memoria 01:40:00 15:00:00 r Medical [facility] 2011-08-19 2011-08-23 Inpatient nullFlavo [facility] [id number] Memoria 14:25:00 15:28:00 r Medical l [facility] Results Test Description Test Time Test Comments Results Result Comments Source AFB culture 2021-07-22 18:13:19 Test Item Value Reference Range Interpretation Comme nts AFB culture isolate No growth after 6 weeks of Specimen InformationSpecimen (test code = 543-9) incubation. Source: DrainageSpecimen Site: Thigh: infected wound right thigh [facility] [id number] 18:13:19 Test Item Value Reference Range Interpretation Comments AFB culture No growth Specimen isolate (test after 6 weeks InformationSp ecimen code = 543-9) of Source: [place] geSpecimen incubation. Site: Thigh: in fected wound right [facility] [id number] 18:13:19 Test Item Value Reference Range Interpretation Comments AFB culture No growth Specimen isolate (test after 6 weeks InformationSp ecimen code = 543-9) of Source: [place] geSpecimen incubation. Site: Thigh: in fected wound right [facility] [id number] 18:13:19 Test Item Value Reference Range Interpretation Comments AFB culture No growth Specimen isolate (test after 6 weeks InformationSp ecimen code = 543-9) of Source: [place] geSpecimen incubation. Site: Thigh: in fected wound right [facility] [id number] 18:13:19 Test Item Value Reference Range Interpretation Comments AFB culture No growth Specimen isolate (test after 6 weeks InformationSp ecimen code = 543-9) of Source: [place] geSpecimen incubation. Site: Thigh: in fected wound right [facility] [id number] 18:13:19 Test Item Value Reference Range Interpretation Comments AFB culture No growth Specimen isolate (test after 6 weeks InformationSp ecimen code = 543-9) of Source: [place] geSpecimen incubation. Site: Thigh: in fected wound right [facility] [id number] 18:13:19 Test Item Value Reference Range Interpretation Comments AFB culture No growth Specimen isolate (test after 6 weeks InformationSp ecimen code = 543-9) of Source: [place] geSpecimen incubation. Site: Thigh: in fected wound right [facility]2022-02-01 18:13:19 Test Item Value Reference Range Interpretation Comments AFB culture No growth Specimen isolate (test after 6 weeks InformationSp ecimen code = 543-9) of Source: [place] geSpecimen incubation. Site: Thigh: in fected wound right [facility] [id number] 18:13:19 Test Item Value Reference Range Interpretation Comments AFB culture No growth Specimen isolate (test after 6 weeks InformationSp ecimen code = 543-9) of Source: [place] geSpecimen incubation. Site: Thigh: in fected wound right [facility]2022-02-01 18:13:19 Test Item Value Reference Range Interpretation Comments AFB culture No growth Specimen isolate (test after 6 weeks InformationSp ecimen code = 543-9) of Source: [place] geSpecimen incubation. Site: Thigh: in fected wound right [facility]2022-01-25 18:15:13 Test Item Value Reference Range Interpretation Comments Fungus culture No growth Specimen isolate (test after 4 weeks InformationSp ecimen code = 1441) of Source: TissueS pecimen incubation. Site: Thigh [facility]2022-01-25 18:15:13 Test Item Value Reference Range Interpretation Comments Fungus culture No growth Specimen isolate (test after 4 weeks InformationSp ecimen code = 1441) of Source: TissueS pecimen incubation. Site: Thigh [facility]2022-01-25 18:15:13 Test Item Value Reference Range Interpretation Comments Fungus culture No growth Specimen isolate (test after 4 weeks InformationSp ecimen code = 1441) of Source: TissueS pecimen incubation. Site: Thigh [facility]2022-01-25 18:15:13 Test Item Value Reference Range Interpretation Comments Fungus culture No growth Specimen isolate (test after 4 weeks InformationSp ecimen code = 1441) of Source: TissueS pecimen incubation. Site: Thigh [facility]2022-01-25 18:15:13 Test Item Value Reference Range Interpretation Comments Fungus culture No growth Specimen isolate (test after 4 weeks InformationSp ecimen code = 1441) of Source: TissueS pecimen incubation. Site: [place] 367812-01-25 18:15:13 Test Item Value Reference Range Interpretation Comments Fungus culture No growth Specimen isolate (test after 4 weeks InformationSp ecimen code = 1441) of Source: TissueS pecimen incubation. Site: [place] 367812-01-25 18:15:13 Test Item Value Reference Range Interpretation Comments Fungus culture No growth Specimen isolate (test after 4 weeks InformationSp ecimen code = 1441) of Source: TissueS pecimen incubation. Site: [facility]2022-01-25 18:15:13 Test Item Value Reference Range Interpretation Comments Fungus culture No growth Specimen isolate (test after 4 weeks InformationSp ecimen code = 1441) of Source: TissueS pecimen incubation. Site: [facility]2022-01-25 18:15:13 Test Item Value Reference Range Interpretation Comments Fungus culture No growth Specimen isolate (test after 4 weeks InformationSp ecimen code = 1441) of Source: TissueS pecimen incubation. Site: [facility]2022-01-25 18:15:13 Test Item Value Reference Range Interpretation Comments Fungus culture No growth Specimen isolate (test after 4 weeks InformationSp ecimen code = 1441) of Source: TissueS pecimen incubation. Site: [facility]2022-01-01 14:31:13 Test Item Value Reference Range Interpretation Comments Anaerobic No anaerobic Specimen culture isolate organisms InformationS pecimen (test code = isolated. Source: TissueS pecimen 552) Site: [place] [id number] 14:31:13 Test Item Value Reference Range Interpretation Comments Anaerobic No anaerobic Specimen culture isolate organisms InformationS pecimen (test code = isolated. Source: TissueS pecimen 552) Site: [facility]2022-01-01 14:31:13 Test Item Value Reference Range Interpretation Comments Anaerobic No anaerobic Specimen culture isolate organisms InformationS pecimen (test code = isolated. Source: TissueS pecimen 552) Site: [place] [id number] 14:31:13 Test Item Value Reference Range Interpretation Comments Anaerobic No anaerobic Specimen culture isolate organisms InformationS pecimen (test code = isolated. Source: TissueS pecimen 552) Site: [place] [address]-01-01 14:31:13 Test Item Value Reference Range Interpretation Comments Anaerobic No anaerobic Specimen culture isolate organisms InformationS pecimen (test code = isolated. Source: TissueS pecimen 552) Site: [place] [id number] 14:31:13 Test Item Value Reference Range Interpretation Comments Anaerobic No anaerobic Specimen culture isolate organisms InformationS pecimen (test code = isolated. Source: TissueS pecimen 552) Site: [place] [id number] 14:31:13 Test Item Value Reference Range Interpretation Comments Anaerobic No anaerobic Specimen culture isolate organisms InformationS pecimen (test code = isolated. Source: TissueS pecimen 552) Site: [facility]2022-01-01 14:31:13 Test Item Value Reference Range Interpretation Comments Anaerobic No anaerobic Specimen culture isolate organisms InformationS pecimen (test code = isolated. Source: TissueS pecimen 552) Site: [place] [id number] 14:31:13 Test Item Value Reference Range Interpretation Comments Anaerobic No anaerobic Specimen culture isolate organisms InformationS pecimen (test code = isolated. Source: TissueS pecimen 552) Site: [place] 990142-01-01 14:31:13 Test Item Value Reference Range Interpretation Comments Anaerobic No anaerobic Specimen culture isolate organisms InformationS pecimen (test code = isolated. Source: TissueS pecimen 552) [facility] [id number] 16:51:58 Test Item Value Reference Range Interpretation Comments Gram stain No WBC's or Specimen isolate (test organisms seen. Information Specimen code = 1469) Source: TissueS pecimen [facility] [id number] 16:51:58 Test Item Value Reference Range Interpretation Comments Aerobic culture No growth Specimen isolate (test after 3 days. InformationSp ecimen code = 498) Source: TissueS pecimen [facility] [id number] 16:51:58 Test Item Value Reference Range Interpretation Comments Fungus smear No fungi Specimen (test code = observed. InformationSpec imen Source: 1443) TissueSpecimen Site: [facility]2021-12-31 16:51:58 Test Item Value Reference Range Interpretation Comments Gram stain No WBC's or Specimen isolate (test organisms seen. Information Specimen code = 1469) Source: [facility] Site: [facility]2021-12-31 16:51:58 Test Item Value Reference Range Interpretation Comments Aerobic culture No growth Specimen isolate (test after 3 days. InformationSp ecimen code = 498) Source: [facility] Site: [facility]2021-12-31 16:51:58 Test Item Value Reference Range Interpretation Comments Fungus smear No fungi Specimen (test code = observed. InformationSpec imen [facility]: 1443) [facility]2021-12-31 16:51:58 Test Item Value Reference Range Interpretation Comments Gram stain No WBC's or Specimen isolate (test organisms seen. Information Specimen code = 1469) Source: [facility] Site: [facility]2021-12-31 16:51:58 Test Item Value Reference Range Interpretation Comments Aerobic culture No growth Specimen isolate (test after 3 days. InformationSp ecimen code = 498) Source: [facility] Site: [facility]2021-12-31 16:51:58 Test Item Value Reference Range Interpretation Comments Fungus smear No fungi Specimen (test code = observed. InformationSpec imen Source: 1443) TissueSpecime Site: [facility]2021-12-31 16:51:58 Test Item Value Reference Range Interpretation Comments Gram stain No WBC's or Specimen isolate (test organisms seen. Information Specimen code = 1469) Source: [facility] Site: [facility]2021-12-31 16:51:58 Test Item Value Reference Range Interpretation Comments Aerobic culture No growth Specimen isolate (test after 3 days. InformationSp ecimen code = 498) Source: [facility] Site: [facility]2021-12-31 16:51:58 Test Item Value Reference Range Interpretation Comments Fungus smear No fungi Specimen (test code = observed. InformationSpec imen Source: 1443) TissueSpecimen Site: [facility] [id number] 16:51:58 Test Item Value Reference Range Interpretation Comments Gram stain No WBC's or Specimen isolate (test organisms seen. Information Specimen code = 1469) Source: [facility] [id number] 16:51:58 Test Item Value Reference Range Interpretation Comments Aerobic culture No growth Specimen isolate (test after 3 days. InformationSp ecimen code = 498) Source: [facility] [id number] 16:51:58 Test Item Value Reference Range Interpretation Comments Fungus smear No fungi Specimen (test code = observed. InformationSpec imen [facility]: 1443) [facility]2021-12-31 16:51:58 Test Item Value Reference Range Interpretation Comments Gram stain No WBC's or Specimen isolate (test organisms seen. Information Specimen code = 1469) Source: [facility] Site: [facility] [id number] 16:51:58 Test Item Value Reference Range Interpretation Comments Aerobic culture No growth Specimen isolate (test after 3 days. InformationSp ecimen code = 498) Source: [facility] [id number] 16:51:58 Test Item Value Reference Range Interpretation Comments Fungus smear No fungi Specimen (test code = observed. InformationSpec imen Source: 1443) [facility] [id number] 16:51:58 Test Item Value Reference Range Interpretation Comments Gram stain No WBC's or Specimen isolate (test organisms seen. Information Specimen code = 1469) Source: [facility]: [facility] [id number] 16:51:58 Test Item Value Reference Range Interpretation Comments Aerobic culture No growth Specimen isolate (test after 3 days. InformationSp ecimen code = 498) Source: [facility] [id number] 16:51:58 Test Item Value Reference Range Interpretation Comments Fungus smear No fungi Specimen (test code = observed. InformationSpec imen Source: 1443) [facility] Site: [facility] [id number] 16:51:58 Test Item Value Reference Range Interpretation Comments Gram stain No WBC's or Specimen isolate (test organisms seen. Information Specimen code = 1469) Source: [facility] Site: [facility] [id number] 16:51:58 Test Item Value Reference Range Interpretation Comments Aerobic culture No growth Specimen isolate (test after 3 days. InformationSp ecimen code = 498) Source: [facility] Site: [facility] [id number] 16:51:58 Test Item Value Reference Range Interpretation Comments Fungus smear No fungi Specimen (test code = observed. InformationSpec imen Source: 1443) [facility] Site: [facility]2021-12-31 16:51:58 Test Item Value Reference Range Interpretation Comments Gram stain No WBC's or Specimen isolate (test organisms seen. Information Specimen code = 1469) Source: [facility] Site: [facility] [id number] 16:51:58 Test Item Value Reference Range Interpretation Comments Aerobic culture No growth Specimen isolate (test after 3 days. InformationSp ecimen code = 498) Source: [facility] Site: [facility] [id number] 16:51:58 Test Item Value Reference Range Interpretation Comments Fungus smear No fungi Specimen (test code = observed. InformationSpec imen Source: 1443) [facility] Site: [facility] [id number] 16:51:58 Test Item Value Reference Range Interpretation Comments Gram stain No WBC's or Specimen isolate (test organisms seen. Information Specimen code = 1469) Source: [facility] Site: [facility] [id number] 16:51:58 Test Item Value Reference Range Interpretation Comments Aerobic culture No growth Specimen isolate (test after 3 days. InformationSp ecimen code = 498) Source: [facility] Site: [facility] [id number] 16:51:58 Test Item Value Reference Range Interpretation Comments Fungus smear No fungi Specimen (test code = observed. InformationSpec imen Source: 1443) TissueSpecime Site: [facility]2021-12-29 17:00:57 Test Item Value Reference Range Interpretation Comments POC glucose (test code 79 mg/dL 65-99 Opera tor Name: Eboni = 11631-9) AmiDevice ID: [id number] [facility]2021-12-29 17:00:57 Test Item Value Reference Range Interpretation Comments POC glucose (test code 79 mg/dL 65-99 Opera tor Name: E[place]i = 25788-6) AmiDevice ID: [id number] [facility]2021-12-29 17:00:57 Test Item Value Reference Range Interpretation Comments POC glucose (test code 79 mg/dL 65-99 Opera tor Name: Eboni = 51164-9) AmiDevice ID: [id number] [facility]2021-12-29 17:00:57 Test Item Value Reference Range Interpretation Comments POC glucose (test code 79 mg/dL 65-99 Opera tor Name: Eboni = 14854-7) AmiDevice ID: [id number] [facility]2021-12-29 17:00:57 Test Item Value Reference Range Interpretation Comments POC glucose (test code 79 mg/dL 65-99 Opera tor Name: Eboni = 78031-9) AmiDevice ID: [id number] [facility]2021-12-29 17:00:57 Test Item Value Reference Range Interpretation Comments POC glucose (test code 79 mg/dL 65-99 Opera tor Name: Eboni = 42324-1) AmiDevice ID: [id number] [facility]2021-12-29 17:00:57 Test Item Value Reference Range Interpretation Comments POC glucose (test code 79 mg/dL 65-99 Opera tor Name: E[place]i = 24791-1) AmiDevice ID: [id number] [facility]2021-12-29 17:00:57 Test Item Value Reference Range Interpretation Comments POC glucose (test code 79 mg/dL 65-99 Opera tor Name: E[place]i = 24884-7) AmiDevice ID: [id number] [facility]2021-12-29 17:00:57 Test Item Value Reference Range Interpretation Comments POC glucose (test code 79 mg/dL 65-99 Opera tor Name: E[place]i = 96633-7) AmiDevice ID: [id number] [facility] [id number] 17:00:57 Test Item Value Reference Range Interpretation Comments POC glucose (test code 79 mg/dL 65-99 Opera tor Name: [place]i = 27401-7) AmiDevice ID: [id number] [facility] , [id number] 20:46:00 Test Item Value Reference Range Interpretation Comments test urine, POC (test Negative code = 5531957) Internal QC (test code = 257) QC acceptable [facility] , [id number] 20:46:00 Test Item Value Reference Range Interpretation Comments test urine, POC (test Negative code = 0899172) Internal QC (test code = 257) QC acceptable [facility] , [id number] 20:46:00 Test Item Value Reference Range Interpretation Comments test urine, POC (test Negative code = 2756909) Internal QC (test code = 257) QC acceptable [facility] , [id number] 20:46:00 Test Item Value Reference Range Interpretation Comments test urine, POC (test Negative code = 6844528) Internal QC (test code = 257) QC acceptable [facility] , [id number] 20:46:00 Test Item Value Reference Range Interpretation Comments test urine, POC (test Negative code = 1524429) Internal QC (test code = 257) QC acceptable [facility] , [id number] 20:46:00 Test Item Value Reference Range Interpretation Comments test urine, POC (test Negative code = 8732346) Internal QC (test code = 257) QC acceptable [facility] , [id number] 20:46:00 Test Item Value Reference Range Interpretation Comments test urine, POC (test Negative code = 4480583) Internal QC (test code = 257) QC acceptable [facility] , [id number] 20:46:00 Test Item Value Reference Range Interpretation Comments test urine, POC (test Negative code = 8535087) Internal QC (test code = 257) QC acceptable [facility] , [id number] 20:46:00 Test Item Value Reference Range Interpretation Comments test urine, POC (test Negative code = 6166409) Internal QC (test code = 257) QC acceptable [facility] , [id number] 20:46:00 Test Item Value Reference Range Interpretation Comments test urine, POC (test Negative code = 9582792) Internal QC (test code = 257) QC acceptable [address]2021-12-27 17:27:33 Test Item Value Reference Range Interpretation Comments Ventricular rate (test code = 253) Atrial rate (test code = 255) CO interval (test code = 266) QRSD interval [...] of 04-JUN-2021 18:19,-No significant change was found- [address]2021-12-27 17:27:33 Test Item Value Reference Range Interpretation Comments Ventricular rate (test code = 253) Atrial rate (test code = 255) CO interval (test code = 266) QRSD interval [...] of 04-JUN-2021 18:19,-No significant change was found- [address]2021-12-27 17:27:33 Test Item Value Reference Range Interpretation Comments Ventricular rate (test code = 253) Atrial rate (test code = 255) CO interval (test code = 266) QRSD interval [...] of 04-JUN-2021 18:19,-No significant change was found- [address]2021-12-27 17:27:33 Test Item Value Reference Range Interpretation Comments Ventricular rate (test code = 253) Atrial rate (test code = 255) CO interval (test code = 266) QRSD interval [...] of 04-JUN-2021 18:19,-No significant change was found- [address]2021-12-27 17:27:33 Test Item Value Reference Range Interpretation Comments Ventricular rate (test code = 253) Atrial rate (test code = 255) CO interval (test code = 266) QRSD interval (test code = 260) QT interval (test code = 264) QTC interval (test code = 265) P axis 1 (test code = 267) QRS axis 1 (test code = 268) T wave axis (test code = 270) EKG impression (test Normal sinus code = 273) rhythm-Normal ECG-In automated comparison with ECG of 04-JUN-2021 18:,-No significant change was found- [address]2021-12-27 17:27:33 Test Item Value Reference Range Interpretation Comments Ventricular rate (test code = 253) Atrial rate (test code = 255) CO interval (test code = 266) QRSD interval [...] of 04-JUN-2021 18:19,-No significant change was found- [address]2021-12-27 17:27:33 Test Item Value Reference Range Interpretation Comments Ventricular rate (test code = 253) Atrial rate (test code = 255) CO interval (test code = 266) QRSD interval [...] of 04-JUN-2021 18:19,-No significant change was found- [address]2021-12-27 17:27:33 Test Item Value Reference Range Interpretation Comments Ventricular rate (test code = 253) Atrial rate (test code = 255) CO interval (test code = 266) QRSD interval (test code = 260) QT interval (test code = 264) QTC interval (test code = 265) P axis 1 (test code = 267) QRS axis 1 (test code = 268) T wave axis (test code = 270) EKG impression (test Normal sinus code = 273) rhythm-Normal ECG-In automated comparison with ECG of 04-JUN-2021 18:,-No significant change was found- [address]2021-12-27 17:27:33 Test Item Value Reference Range Interpretation Comments Ventricular rate (test code = 253) Atrial rate (test code = 255) CO interval (test code = 266) QRSD interval [...] of 04-JUN-2021 18:19,-No significant change was found- [facility] 12 [id number] 17:27:33 Test Item Value Reference Range Interpretation Comments Ventricular rate (test code = 253) Atrial rate (test code = 255) CO interval (test code = 266) QRSD interval [...] 18:19,-No significant change was found- [facility] and [id number] 11:06:00 Test Item Value Reference Range Interpretation Comments ABO grouping (test code = 883-9) B Rh type (test code = 95890-2) POS Antibody screen (gel) (test code = NEG 890-4) [facility] and [id number] 11:06:00 Test Item Value Reference Range Interpretation Comments ABO grouping (test code = 883-9) B Rh type (test code = 26598-4) POS Antibody screen (gel) (test code = NEG 890-4) [facility] and [id number] 11:06:00 Test Item Value Reference Range Interpretation Comments ABO grouping (test code = 883-9) B Rh type (test code = 63871-5) POS Antibody screen (gel) (test code = NEG 890-4) [facility] and [id number] 11:06:00 Test Item Value Reference Range Interpretation Comments ABO grouping (test code = 883-9) B Rh type (test code = 89213-3) POS Antibody screen (gel) (test code = NEG 890-4) [facility] [id number] 11:06:00 Test Item Value Reference Range Interpretation Comments ABO grouping (test code = 883-9) B Rh type (test code = 02213-5) POS Antibody screen (gel) (test code = NEG 890-4) [facility] [id number] 11:06:00 Test Item Value Reference Range Interpretation Comments ABO grouping (test code = 883-9) B Rh type (test code = 99671-7) POS Antibody screen (gel) (test code = NEG 890-4) [facility] [id number] 11:06:00 Test Item Value Reference Range Interpretation Comments ABO grouping (test code = 883-9) B Rh type (test code = 43184-4) POS Antibody screen (gel) (test code = NEG 890-4) [facility] and [id number] 11:06:00 Test Item Value Reference Range Interpretation Comments ABO grouping (test code = 883-9) B Rh type (test code = 70097-0) POS Antibody screen (gel) (test code = NEG 890-4) [facility] [id number] 11:06:00 Test Item Value Reference Range Interpretation Comments ABO grouping (test code = 883-9) B Rh type (test code = 41836-4) POS Antibody screen (gel) (test code = NEG 890-4) [facility] [id number] 11:06:00 Test Item Value Reference Range Interpretation Comments ABO grouping (test code = 883-9) B Rh type (test code = 18530-4) POS Antibody screen (gel) (test code = NEG 890-4) [facility] [Presence] in Respiratory specimen by EMANUEL with probe [id number] 19:37:44 Test Item Value Reference Range Interpretation Comments SARS-CoV-2 (COVID-19) RNA Not detected Not-Detected [Presence] in Respiratory specimen by EMANUEL with probe detection (test code = 28775-4) 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 (test code = 27277-7) Whether the patient has symptoms related to condition of interest (test code = 51825-2) Patient was hospitalized because of this condition (test code = 78608-4) Whether the patient was admitted to intensive care unit (ICU) for condition of interest (test code = 29730-2) Whether patient resides in a congregate care setting (test code = 26606-8) [facility]2021-12-24 20:18:46 Test Item Value Reference Range Interpretation Comments Tissue culture No growth Specimen isolate (test after 3 days. InformationSp ecimen code = 69735-1) Source: Tiss ueSpecimen Site: Thigh: in fected right thigh wou [facility]2021-12-24 20:18:46 Test Item Value Reference Range Interpretation Comments Tissue culture No growth Specimen isolate (test after 3 days. InformationSp ecimen code = 10375-1) Source: Tiss ueSpecimen Site: Thigh: in fected right thigh wou [facility]2021-12-24 20:18:46 Test Item Value Reference Range Interpretation Comments Tissue culture No growth Specimen isolate (test after 3 days. InformationSp ecimen code = 41906-7) Source: Tiss ueSpecimen Site: Thigh: in fected right thigh wou [facility]2021-12-24 20:18:46 Test Item Value Reference Range Interpretation Comments Tissue culture No growth Specimen isolate (test after 3 days. InformationSp ecimen code = 56009-4) Source: Tiss ueSpecimen Site: Thigh: in fected right thigh wou [facility]2021-12-24 20:18:46 Test Item Value Reference Range Interpretation Comments Tissue culture No growth Specimen isolate (test after 3 days. InformationSp ecimen code = 02342-2) Source: Tiss ueSpecimen Site: Thigh: in fected right thigh wou [facility]2021-12-24 20:18:46 Test Item Value Reference Range Interpretation Comments Tissue culture No growth Specimen isolate (test after 3 days. InformationSp ecimen code = 93154-9) Source: Tiss ueSpecimen Site: [id number] 20:18:46 Test Item Value Reference Range Interpretation Comments Tissue culture No growth Specimen isolate (test after 3 days. InformationSp ecimen code = 05132-6) Source: Tiss ueSpecimen Site: Thigh: [facility] [id number] 20:18:46 Test Item Value Reference Range Interpretation Comments Tissue culture No growth Specimen isolate (test after 3 days. InformationSp ecimen code = 04274-3) Source: Tiss ueSpecimen Site: Thigh: [facility] [id number] 20:18:46 Test Item Value Reference Range Interpretation Comments Tissue culture No growth Specimen isolate (test after 3 days. InformationSp ecimen code = 45305-6) Source: Tiss ueSpecimen Site: Thigh: [facility]ected [facility] [id number] 20:18:46 Test Item Value Reference Range Interpretation Comments Tissue culture No growth Specimen isolate (test after 3 days. InformationSp ecimen code = 32453-8) Source: Tiss ueSpecimen Site: Thigh: in fected right thigh wou [facility] [id number] 20:24:42 Test Item Value Reference Range Interpretation Comments AFB stain No acid fast Specimen (test code = bacilli (AFB) InformationSpe cimen 676-7) seen. Source: [place] eSpecimen Site: Th[facility]: [facility] [id number] 20:24:42 Test Item Value Reference Range Interpretation Comments AFB stain No acid fast Specimen (test code = bacilli (AFB) InformationSpe cimen 676-7) seen. Source: [place] eSpecimen Site: Thigh: [facility] [id number] 20:24:42 Test Item Value Reference Range Interpretation Comments AFB stain No acid fast Specimen (test code = bacilli (AFB) InformationSpe cimen 676-7) seen. Source: [place] eSpecimen Site: Thigh: [facility] [id number] 20:24:42 Test Item Value Reference Range Interpretation Comments AFB stain No acid fast Specimen (test code = bacilli (AFB) InformationSpe cimen 676-7) seen. Source: [place] eSpecimen Site: [facility]: [facility] [id number] 20:24:42 Test Item Value Reference Range Interpretation Comments AFB stain No acid fast Specimen (test code = bacilli (AFB) InformationSpe cimen 676-7) seen. Source: Drainag eSpecimen Site: Thigh: in fected wound right [facility] [id number] 20:24:42 Test Item Value Reference Range Interpretation Comments AFB stain No acid fast Specimen (test code = bacilli (AFB) InformationSpe cimen 676-7) seen. Source: Drainag eSpecimen Site: Thigh: in fected wound right [facility] [id number] 20:24:42 Test Item Value Reference Range Interpretation Comments AFB stain No acid fast Specimen (test code = bacilli (AFB) InformationSpe cimen 676-7) seen. Source: Drainag eSpecimen Site: Thigh: in fected wound right [facility] [id number] 20:24:42 Test Item Value Reference Range Interpretation Comments AFB stain No acid fast Specimen (test code = bacilli (AFB) InformationSpe cimen 676-7) seen. Source: Drainag eSpecimen Site: Thigh: in fected wound right [facility] [id number] 20:24:42 Test Item Value Reference Range Interpretation Comments AFB stain No acid fast Specimen (test code = bacilli (AFB) InformationSpe cimen 676-7) seen. Source: Drainag eSpecimen Site: Thigh: in fected wound right [facility] [id number] 20:24:42 Test Item Value Reference Range Interpretation Comments AFB stain No acid fast Specimen (test code = bacilli (AFB) InformationSpe cimen 676-7) seen. Source: Drainag eSpecimen Site: [facility]: [facility]:49:57 Test Item Value Reference Range Interpretation Comments Urine culture No growth Specimen isolate (test after 24 InformationSpe cimen code = 98564-5) hours Source: Urin eSpecimen Site: [facility]2021-12-20 09:49:57 Test Item Value Reference Range Interpretation Comments Urine culture No growth Specimen isolate (test after 24 InformationSpe cimen code = 08594-7) hours Source: Urin eSpecimen Site: [facility]2021-12-20 09:49:57 Test Item Value Reference Range Interpretation Comments Urine culture No growth Specimen isolate (test after 24 InformationSpe cimen code = 97238-7) hours Source: Urin eSpecimen Site: [facility]2021-12-20 09:49:57 Test Item Value Reference Range Interpretation Comments Urine culture No growth Specimen isolate (test after 24 InformationSpe cimen code = 21835-6) hours Source: Urin eSpecimen Site: [facility]2021-12-20 09:49:57 Test Item Value Reference Range Interpretation Comments Urine culture No growth Specimen isolate (test after 24 InformationSpe cimen code = 45090-0) hours Source: Urin eSpecimen Site: [facility]2021-12-20 09:49:57 Test Item Value Reference Range Interpretation Comments Urine culture No growth Specimen isolate (test after 24 InformationSpe cimen code = 68033-1) hours Source: Urin eSpecimen Site: [facility]2021-12-20 09:49:57 Test Item Value Reference Range Interpretation Comments Urine culture No growth Specimen isolate (test after 24 InformationSpe cimen code = 88015-4) hours Source: Urin eSpecimen Site: [facility]2021-12-20 09:49:57 Test Item Value Reference Range Interpretation Comments Urine culture No growth Specimen isolate (test after 24 InformationSpe cimen code = 38728-3) hours Source: Urin eSpecimen Site: [facility]2021-12-20 09:49:57 Test Item Value Reference Range Interpretation Comments Urine culture No growth Specimen isolate (test after 24 InformationSpe cimen code = 69957-2) hours Source: Urin eSpecimen Site: [facility]2021-12-20 09:49:57 Test Item Value Reference Range Interpretation Comments Urine culture No growth Specimen isolate (test after 24 [facility] 58969-3) hours Source: Urin eSpecimen [facility] fokmmhclzfbc5176-26-99 12:52:00 Test Item Value Reference Range Interpretation Comments ABO grouping (test code = 883-9) B Rh type (test code = 36597-1) [facility] unbzjvjwhkzm4845-11-81 12:52:00 Test Item Value Reference Range Interpretation Comments ABO grouping (test code = 883-9) B Rh type (test code = 66530-1) [facility] eqcordufkeet1935-45-34 12:52:00 Test Item Value Reference Range Interpretation Comments ABO grouping (test code = 883-9) B Rh type (test code = 19232-9) POS [facility] and Rh ouzcywkniiqp9529-23-55 12:52:00 Test Item Value Reference Range Interpretation Comments ABO grouping (test code = 883-9) B Rh type (test code = 15641-6) [facility] pyhwwplsfjex0485-61-67 12:52:00 Test Item Value Reference Range Interpretation Comments ABO grouping (test code = 883-9) B Rh type (test code = 92640-4) [facility] stbcxsnxaaut9235-56-76 12:52:00 Test Item Value Reference Range Interpretation Comments ABO grouping (test code = 883-9) B Rh type (test code = 82408-0) [facility] nhpbevgrxohc8570-26-03 12:52:00 Test Item Value Reference Range Interpretation Comments ABO grouping (test code = 883-9) B Rh type (test code = 48601-5) [facility] bblqxzciatax3147-79-98 12:52:00 Test Item Value Reference Range Interpretation Comments ABO grouping (test code = 883-9) B Rh type (test code = 07629-8) [facility] and vvasykticyha8157-75-83 12:52:00 Test Item Value Reference Range Interpretation Comments ABO grouping (test code = 883-9) B Rh type (test code = 10430-7) [facility] mojvqxnjhybw4691-01-98 12:52:00 Test Item Value Reference Range Interpretation Comments ABO grouping (test code = 883-9) B Rh type (test code = 01514-9) [facility] [Presence] in Respiratory specimen by EMANUEL with probe ksjfmxapj4245-69-68 03:04:32 Test Item Value Reference Range Interpretation Comments SARS-CoV-2 (COVID-19) RNA Not detected Not-Detected [Presence] in Respiratory specimen by EMANUEL with probe detection (test code = 38799-1) 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 (test code = 01426-9) Whether the patient has symptoms related to condition of interest (test code = 30436-6) Patient was hospitalized because of this condition (test code = 63562-3) Whether the patient was admitted to intensive care unit (ICU) for condition of interest (test code = 28519-2) Whether patient resides in a congregate care setting (test code = 53814-9) [facility] RBC, 1 [id number] 22:22:00 Test Item Value Reference Range Interpretation Comments Product name (test code Red Blood Cells -1, = 25) Leukored Unit number (test code = [id number]) Product code (test code W2124I60 = 3092) Dispense status (test Transfused code = 24) Blood expiration date (test code = 302) Blood type code (test code = 308) Blood type (test code = B POSITIVE 1314) Compatibility (test code Compatible = 6400) [facility] RBC, 1 Lwzhe1155-85-47 22:22:00 Test Item Value Reference Range Interpretation Comments Product name (test code Red Blood Cells -1, = 25) Leukored Unit number (test code = [id number]) Product code (test code A3548D90 = 3092) Dispense status (test Transfused code = 24) Blood expiration date (test code = 302) Blood type code (test code = 308) Blood type (test code = B POSITIVE 1314) Compatibility (test code Compatible = 6400) [facility] RBC, 1 Ngqff1732-05-41 22:22:00 Test Item Value Reference Range Interpretation Comments Product name (test code Red Blood Cells -1, = 25) Leukored Unit number (test code = [id number] 8222916) Product code (test code T3596B59 = 3092) Dispense status (test Transfused code = 24) Blood expiration date (test code = 302) Blood type code (test code = 308) Blood type (test code = B POSITIVE 1314) Compatibility (test code Compatible = 6400) [facility], 1 Rkzir7888-84-56 22:22:00 Test Item Value Reference Range Interpretation Comments Product name (test code Red Blood Cells -1, = 25) Leukored Unit number (test code = [id number]) Product code (test code Y1209W50 = 3092) Dispense status (test Transfused code = 24) Blood expiration date (test code = 302) Blood type code (test code = 308) Blood type (test code = B POSITIVE 1314) Compatibility (test code Compatible = 6400) [facility], 1 Mqplr9953-01-87 22:22:00 Test Item Value Reference Range Interpretation Comments Product name (test code Red Blood Cells -1, = 25) Leukored Unit number (test code = [id number] 9524996) Product code (test code Q3783S51 = 3092) Dispense status (test Transfused code = 24) Blood expiration date (test code = 302) Blood type code (test code = 308) Blood type (test code = B POSITIVE 1314) Compatibility (test code Compatible = 6400) [facility], 1 Eqrlj0884-76-70 22:22:00 Test Item Value Reference Range Interpretation Comments Product name (test code Red Blood Cells -1, = 25) Leukored Unit number (test code = [id number] 4168940) Product code (test code B8322K23 = 3092) Dispense status (test Transfused code = 24) Blood expiration date (test code = 302) Blood type code (test code = 308) Blood type (test code = B POSITIVE 1314) Compatibility (test code Compatible = 6400) [facility], 1 Lyusi2945-38-82 22:22:00 Test Item Value Reference Range Interpretation Comments Product name (test code Red Blood Cells -1, = 25) Leukored Unit number (test code = [id number] 6041177) Product code (test code W4205H46 = 3092) Dispense status (test Transfused code = 24) Blood expiration date (test code = 302) Blood type code (test code = 308) Blood type (test code = B POSITIVE 1314) Compatibility (test code Compatible = 6400) [facility] RBC, 1 [id number] 22:22:00 Test Item Value Reference Range Interpretation Comments Product name (test code Red Blood Cells -1, = 25) Leukored Unit number (test code = [id number] 6487558) Product code (test code S5745K54 = 3092) Dispense status (test Transfused code = 24) Blood expiration date (test code = 302) Blood type code (test code = 308) Blood type (test code = B POSITIVE 1314) Compatibility (test code Compatible = 6400) [facility] RBC, 1 [id number] 22:22:00 Test Item Value Reference Range Interpretation Comments Product name (test code Red Blood Cells -1, = 25) Leukored Unit number (test code = [id number] 1775132) Product code (test code I9254C28 = 3092) Dispense status (test Transfused code = 24) Blood expiration date (test code = 302) Blood type code (test code = 308) Blood type (test code = B POSITIVE 1314) Compatibility (test code Compatible = 6400) [facility] RBC, 1 [id number] 22:22:00 Test Item Value Reference Range Interpretation Comments Product name (test code Red Blood Cells -1, = 25) Leukored Unit number (test code = [id number] 4976646) Product code (test code N5022H69 = 3092) Dispense status (test Transfused code = 24) Blood expiration date (test code = 302) Blood type code (test code = 308) Blood type (test code = B POSITIVE 1314) Compatibility (test code Compatible = 6400) [facility] ymvlhry5359-51-45 20:10:46 Test Item Value Reference Range Interpretation Comments Case number (test code = [id number]) Surgical pathology See link below for report (test code = PDF Lab Report 2255) Result status (test code This is Final Report = 3526279) for [address] pathology islytxl4075-98-34 20:10:46 Test Item Value Reference Range Interpretation Comments Case number (test code = [id number]) Surgical pathology See link below for report (test code = PDF Lab Report 2255) Result status (test code This is Final Report = 7751788) for [address] pathology [id number] 20:10:46 Test Item Value Reference Range Interpretation Comments Case number (test code = [id number]) Surgical pathology See link below for report (test code = PDF Lab Report 2255) Result status (test code This is Final Report = 8286917) for [address] pathology shybvdx6612-19-23 20:10:46 Test Item Value Reference Range Interpretation Comments Case number (test code = [id number]) Surgical pathology See link below for report (test code = PDF Lab Report 2255) Result status (test code This is Final Report = 7992396) for [address] pathology vrrvxjq1906-59-08 20:10:46 Test Item Value Reference Range Interpretation Comments Case number (test code = [id number]) Surgical pathology See link below for report (test code = PDF Lab Report 2255) Result status (test code This is Final Report = 6540129) for [address] pathology trfcrur2955-20-28 20:10:46 Test Item Value Reference Range Interpretation Comments Case number (test code = [id number]) Surgical pathology See link below for report (test code = PDF Lab Report 2255) Result status (test code This is Final Report = 3027225) for [address] pathology [id number] 20:10:46 Test Item Value Reference Range Interpretation Comments Case number (test code = [id number]) Surgical pathology See link below for report (test code = PDF Lab Report 2255) Result status (test code This is Final Report = 6258560) for [address] pathology esukkbq3189-11-48 20:10:46 Test Item Value Reference Range Interpretation Comments Case number (test code = [id number]) Surgical pathology See link below for report (test code = PDF Lab Report 2255) Result status (test code This is Final Report = 2613167) for [address] pathology qomzxbz2829-79-75 20:10:46 Test Item Value Reference Range Interpretation Comments Case number (test code = [id number]) Surgical pathology See link below for report (test code = PDF Lab Report 2255) Result status (test code This is Final Report = [id number]) for [address] pathology fgccldx0551-89-03 20:10:46 Test Item Value Reference Range Interpretation Comments Case number (test code = [id number]) Surgical pathology See link below for report (test code = PDF Lab Report 2255) Result status (test code This is Final Report = 6646681) [address] [facility]heres[address], 1 [id number] 15:35:00 Test Item Value Reference Range Interpretation Comments Product name (test code Platerick tAph LR, Path = 25) Red cont3 Unit number (test code = [id number] 3748466) Product code (test code S4550R45 = 3092) Dispense status (test Transfused code = 24) Blood expiration date (test code = 302) Blood type code (test code = 308) Blood type (test code = O POSITIVE 1314) Compatibility (test code Not required = 6400) [facility] Tfdob5636-96-38 15:35:00 Test Item Value Reference Range Interpretation Comments Product name (test code Platerick tAph LR, Path = 25) Red cont3 Unit number (test code = [id number] 8258298) Product code (test code K9332T73 = 3092) Dispense status (test Transfused code = 24) Blood expiration date (test code = 302) Blood type code (test code = 308) Blood type (test code = O POSITIVE 1314) Compatibility (test code Not required = 6400) [facility] Yjoez7690-54-21 15:35:00 Test Item Value Reference Range Interpretation Comments Product name (test code Bogdan tApgina LR, Path = 25) Red cont3 Unit number (test code = [id number] 0748360) Product code (test code N0411M23 = 3092) Dispense status (test Transfused code = 24) Blood expiration date (test code = 302) Blood type code (test code = 308) Blood type (test code = O POSITIVE 1314) Compatibility (test code Not required = 6400) [facility] 1 Sbweb1781-40-10 15:35:00 Test Item Value Reference Range Interpretation Comments Product name (test code Bogdan Fraire LR, Path = 25) Red cont3 Unit number (test code = [id number] 5144876) Product code (test code V1738Z77 = 3092) Dispense status (test Transfused code = 24) Blood expiration date (test code = 302) Blood type code (test code = 308) Blood type (test code = O POSITIVE 1314) Compatibility (test code Not required = 6400) [facility] 1 Zalwc1963-72-70 15:35:00 Test Item Value Reference Range Interpretation Comments Product name (test code Bogdan GARDINER, Path = 25) Red cont3 Unit number (test code = [id number] 0143602) Product code (test code H2305H67 = 3092) Dispense status (test Transfused code = 24) Blood expiration date (test code = 302) Blood type code (test code = 308) Blood type (test code = O POSITIVE 1314) Compatibility (test code Not required = 6400) [facility], 1 Zyfzj4830-40-95 15:35:00 Test Item Value Reference Range Interpretation Comments Product name (test code Bogdan Fraire LR, Path = 25) Red cont3 Unit number (test code = [id number] 4623108) Product code (test code Z3963G96 = 3092) Dispense status (test Transfused code = 24) Blood expiration date (test code = 302) Blood type code (test code = 308) Blood type (test code = O POSITIVE 1314) Compatibility (test code Not required = 6400) [facility], 1 Rnxmi7631-53-10 15:35:00 Test Item Value Reference Range Interpretation Comments Product name (test code Bogdan tApgina LR, Path = 25) Red cont3 Unit number (test code = [id number] 4698079) Product code (test code N6007V73 = 3092) Dispense status (test Transfused code = 24) Blood expiration date (test code = 302) Blood type code (test code = 308) Blood type (test code = O POSITIVE 1314) Compatibility (test code Not required = 6400) [facility] 1 Lvvsk7650-80-55 15:35:00 Test Item Value Reference Range Interpretation Comments Product name (test code Bogdan Fraire LR, Path = 25) Red cont3 Unit number (test code = [id number] 7831210) Product code (test code I7507R26 = 3092) Dispense status (test Transfused code = 24) Blood expiration date (test code = 302) Blood type code (test code = 308) Blood type (test code = O POSITIVE 1314) Compatibility (test code Not required = 6400) [facility], 1 Vccfj5136-79-32 15:35:00 Test Item Value Reference Range Interpretation Comments Product name (test code Bogdan Fraire LR, Path = 25) Red cont3 Unit number (test code = [id number] 6812450) Product code (test code L3012Y84 = 3092) Dispense status (test Transfused code = 24) Blood expiration date (test code = 302) Blood type code (test code = 308) Blood type (test code = O POSITIVE 1314) Compatibility (test code Not required = 6400) [facility], 1 Jvvxz5306-99-45 15:35:00 Test Item Value Reference Range Interpretation Comments Product name (test code Bogdan Fraire LR, Path = 25) Red cont3 Unit number (test code = [id number] 3182313) Product code (test code Z3521D41 = 3092) Dispense status (test Transfused code = 24) Blood expiration date (test code = 302) Blood type code (test code = 308) Blood type (test code = O POSITIVE 1314) Compatibility (test code Not required = 6400) [facility] gwqz9923-08-71 12:13:24 Test Item Value Reference Range Interpretation Comments Activated clotting time See_Comment H Oper ator Name: (test code = 5298) Bryn Denny norbertoeaDevice ID: [id number] [Automated mess age] The system [employer] h generated this result transmitted ref erence range: 96 - 152 sec. The reference r leo was not used to interpret this result as normal/abnor mal. Lab Interpretation (test Abnormal code = 90315-4) [facility] yvve3634-03-57 12:13:24 Test Item Value Reference Range Interpretation Comments Activated clotting time See_Comment H Oper ator Name: (test code = 5298) Bryn Denny eneaDevice ID: [id number] [Automated mess age] The system [employer] generated this result transmitted ref erence range: 96 - 152 sec. The reference r leo was not used to interpret this result as normal/abnor mal. Lab Interpretation (test Abnormal code = 76384-8) [facility] buem5129-85-79 12:13:24 Test Item Value Reference Range Interpretation Comments Activated clotting time See_Comment H Oper ator Name: (test code = 5298) Bryn Denny norbertoeaDevice ID: [id number] [Automated mess age] The system [employer] h generated this result transmitted ref erence range: 96 - 152 sec. The reference r leo was not used to interpret this result as normal/abnor mal. Lab Interpretation (test Abnormal code = 86482-3) [facility] atzg6091-26-43 12:13:24 Test Item Value Reference Range Interpretation Comments Activated clotting time See_Comment H Oper ator Name: (test code = 5298) Bryn Denny eneaDevice ID: [id number] [Automated mess age] The system [employer] h generated this result transmitted ref erence range: 96 - 152 sec. The reference r leo was not used to interpret this result as normal/abnor mal. Lab Interpretation (test Abnormal code = 76562-4) [facility] dzvc0301-74-24 12:13:24 Test Item Value Reference Range Interpretation Comments Activated clotting time See_Comment H Oper ator Name: (test code = 5298) Bryn R eneaDevice ID: [id number] [Automated mess age] The system [employer] h generated this result transmitted ref erence range: 96 - 152 sec. The reference r leo was not used to interpret this result as normal/abnor mal. Lab Interpretation (test Abnormal code = 01676-1) [facility] bcao8877-42-79 12:13:24 Test Item Value Reference Range Interpretation Comments Activated clotting time See_Comment H Oper ator Name: (test code = 5298) Bryn R eneaDevice ID: [id number] [Automated mess age] The system [employer] generated this result transmitted ref erence range: 96 - 152 sec. The reference r leo was not used to interpret this result as normal/abnor mal. Lab Interpretation (test Abnormal code = 45475-5) [facility] pugr0428-39-35 12:13:24 Test Item Value Reference Range Interpretation Comments Activated clotting time See_Comment H Oper ator Name: (test code = 5298) Bryn R eneaDevice ID: [id number] [Automated mess age] The system [employer] generated this result transmitted ref erence range: 96 - 152 sec. The reference r leo was not used to interpret this result as normal/abnor mal. Lab Interpretation (test Abnormal code = 43174-2) [facility] rhqf8691-22-40 12:13:24 Test Item Value Reference Range Interpretation Comments Activated clotting time See_Comment H Oper ator Name: (test code = 5298) Bryn R eneaDevice ID: [id number] [Automated mess age] The system [employer] generated this result transmitted ref erence range: 96 - 152 sec. The reference r leo was not used to interpret this result as normal/abnor mal. Lab Interpretation (test Abnormal code = 06305-3) [facility] rlbb6555-99-92 12:13:24 Test Item Value Reference Range Interpretation Comments Activated clotting time See_Comment H Oper ator Name: (test code = 5298) Bryn R eneaDevice ID: [id number] [Automated mess age] The system [employer] generated this result transmitted ref erence range: 96 - 152 sec. The reference r leo was not used to interpret this result as normal/abnor mal. Lab Interpretation (test Abnormal code = 69536-7) [facility] wuzq8588-49-38 12:13:24 Test Item Value Reference Range Interpretation Comments Activated clotting time See_Comment H Oper ator Name: (test code = 5298) Bryn Denny Carmen ID: [id number] [Automated mess age] The system [employer] generated this result transmitted ref erence range: 96 - 152 sec. The reference r leo was not used to interpret this result as normal/abnor mal. Lab Interpretation (test Abnormal code = 80655-9) [facility] lykvy6556-71-23 14:37:48 Test Item Value Reference Range Interpretation Comments POC sodium (test code = 138 mmol/L 308-743 3705-0) POC potassium (test 5.5 mmol/L 3.5-5 H code = 6298-4) POC glucose (test code 295 mg/dL 65-99 H = 2339-0) POC creatinine (test 5.3 mg/dl 0.5-0.9 H Operato r Name: Pugne code = 92548-1) AileenDevice ID: [id number] POC hemoglobin (test 18.4 g/dL 12-16 H code = 718-7) POC hematocrit (test 54 % 37-47 H code = 4544-3) Lab Interpretation Abnormal (test code = 82445-6) [facility] [id number] 14:37:48 Test Item Value Reference Range Interpretation Comments POC sodium (test code = 138 mmol/L 846-264 2384-0) POC potassium (test 5.5 mmol/L 3.5-5 H code = 6298-4) POC glucose (test code 295 mg/dL 65-99 H = 2339-0) POC creatinine (test 5.3 mg/dl 0.5-0.9 H Operato r Name: Pugne code = 04689-7) AileenDevice ID: [id number] POC hemoglobin (test 18.4 g/dL 12-16 H code = 718-7) POC hematocrit (test 54 % 37-47 H code = 4544-3) Lab Interpretation Abnormal (test code = 01884-7) [facility]2021-11-29 14:37:48 Test Item Value Reference Range Interpretation Comments POC sodium (test code = 138 mmol/L 888-087 9897-0) POC potassium (test 5.5 mmol/L 3.5-5 H code = 6298-4) POC glucose (test code 295 mg/dL 65-99 H = 2339-0) POC creatinine (test 5.3 mg/dl 0.5-0.9 H Operato r Name: Pugne code = 24656-0) AileenDevice ID: [id number] POC hemoglobin (test 18.4 g/dL 12-16 H code = 718-7) POC hematocrit (test 54 % 37-47 H code = 4544-3) Lab Interpretation Abnormal (test code = 26328-2) [facility]2021-11-29 14:37:48 Test Item Value Reference Range Interpretation Comments POC sodium (test code = 138 mmol/L 919-476 1548-0) POC potassium (test 5.5 mmol/L 3.5-5 H code = 6298-4) POC glucose (test code 295 mg/dL 65-99 H = 2339-0) POC creatinine (test 5.3 mg/dl 0.5-0.9 H Operato r Name: Pugne code = 58676-2) AileenDevice ID: [id number] POC hemoglobin (test 18.4 g/dL 12-16 H code = 718-7) POC hematocrit (test 54 % 37-47 H code = 4544-3) Lab Interpretation Abnormal (test code = 72901-0) [place] 720701-11-29 14:37:48 Test Item Value Reference Range Interpretation Comments POC sodium (test code = 138 mmol/L 508-292 0936-0) POC potassium (test 5.5 mmol/L 3.5-5 H code = 6298-4) POC glucose (test code 295 mg/dL 65-99 H = 2339-0) POC creatinine (test 5.3 mg/dl 0.5-0.9 H Operato r Name: Pugne code = 80829-2) [employer]ileenDevice ID: [id number] POC hemoglobin (test 18.4 g/dL 12-16 H code = 718-7) POC hematocrit (test 54 % 37-47 H code = 4544-3) Lab Interpretation Abnormal (test code = 17799-5) [place] 720701-11-29 14:37:48 Test Item Value Reference Range Interpretation Comments POC sodium (test code = 138 mmol/L 043-235 7967-0) POC potassium (test 5.5 mmol/L 3.5-5.0 H code = 6298-4) POC glucose (test code 295 mg/dL 65-99 H = 2339-0) POC creatinine (test 5.3 mg/dl 0.5-0.9 H Operato r Name: Pugne code = 15300-5) LisbethDe ID: [id number] POC hemoglobin (test 18.4 g/dL 12.0-16.0 H code = 718-7) POC hematocrit (test 54 % 37-47 H code = 4544-3) Lab Interpretation Abnormal (test code = 89724-1) [facility]2021-11-29 14:37:48 Test Item Value Reference Range Interpretation Comments POC sodium (test code = 138 mmol/L 436-580 2696-0) POC potassium (test 5.5 mmol/L 3.5-5 H code = 6298-4) POC glucose (test code 295 mg/dL 65-99 H = 2339-0) POC creatinine (test 5.3 mg/dl 0.5-0.9 H Operato r Name: Pugne code = 38559-4) AiljoshDevice ID: [id number] POC hemoglobin (test 18.4 g/dL 12-16 H code = 718-7) POC hematocrit (test 54 % 37-47 H code = 4544-3) Lab Interpretation Abnormal (test code = 83087-0) [facility]2021-11-29 14:37:48 Test Item Value Reference Range Interpretation Comments POC sodium (test code = 138 mmol/L 882-847 9220-0) POC potassium (test 5.5 mmol/L 3.5-5 H code = 6298-4) POC glucose (test code 295 mg/dL 65-99 H = 2339-0) POC creatinine (test 5.3 mg/dl 0.5-0.9 H Operato r Name: Johannae code = 68213-1) AileenDevice ID: [id number] POC hemoglobin (test 18.4 g/dL 12-16 H code = 718-7) POC hematocrit (test 54 % 37-47 H code = 4544-3) Lab Interpretation Abnormal (test code = 31293-0) [facility] cwfhi3023-10-33 14:37:48 Test Item Value Reference Range Interpretation Comments POC sodium (test code = 138 mmol/L 037-166 0909-0) POC potassium (test 5.5 mmol/L 3.5-5 H code = 6298-4) POC glucose (test code 295 mg/dL 65-99 H = 2339-0) POC creatinine (test 5.3 mg/dl 0.5-0.9 H Operato r Name: Pat code = 20564-6) AileenDevice ID: [id number] POC hemoglobin (test 18.4 g/dL 12-16 H code = 718-7) POC hematocrit (test 54 % 37-47 H code = 4544-3) Lab Interpretation Abnormal (test code = 27461-8) [facility] clwnl7772-52-47 14:37:48 Test Item Value Reference Range Interpretation Comments POC sodium (test code = 138 mmol/L 470-167 1385-0) POC potassium (test 5.5 mmol/L 3.5-5.0 H code = 6298-4) POC glucose (test code 295 mg/dL 65-99 H = 2339-0) POC creatinine (test 5.3 mg/dl 0.5-0.9 H Operato r Name: Pat code = 85971-8) AileenDevice ID: [id number] POC hemoglobin (test 18.4 g/dL 12.0-16.0 H code = 718-7) POC hematocrit (test 54 % 37-47 H code = 4544-3) Lab Interpretation Abnormal (test code = 42490-2) [facility] [Presence] in Respiratory specimen by EMANUEL with probe mzivebnva6220-13-67 07:53:49 Test Item Value Reference Range Interpretation Comments SARS-CoV-2 (COVID-19) RNA Not detected Not-Detected [Presence] in Respiratory specimen by EMANUEL with probe detection (test code = 99258-0) 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 (test code = 15656-2) Whether the patient has symptoms related to condition of interest (test code = 98017-9) Patient was hospitalized because of this condition (test code = 72631-8) Whether the patient was admitted to intensive care unit (ICU) for condition of interest (test code = 00902-5) Whether patient resides in a congregate care setting (test code = 85543-4) [facility]2021-08-11 08:17:00 Test Item Value Reference Range Interpretation Comments Glucose Lvl (test code = Glucose Lvl) 94 70-99 [place] 980501-08-11 08:17:00 Test Item Value Reference Range Interpretation Comments BUN (test code = BUN) 27 7-22 [place] 980501-08-11 08:17:00 Test Item Value Reference Range Interpretation Comments Creatinine Lvl (test code = Creatinine 4.95 0.50-1.40 Lvl) [place] 980501-08-11 08:17:00 Test Item Value Reference Range Interpretation Comments Sodium Lvl (test code = Sodium Lvl) 136 135-145 [place] 980501-08-11 08:17:00 Test Item Value Reference Range Interpretation Comments Potassium Lvl (test code = Potassium 3.9 3.5-5.1 Lvl) [place] 980501-08-11 08:17:00 Test Item Value Reference Range Interpretation Comments Chloride Lvl (test code = Chloride Lvl) 103 95-109 [place] 980501-08-11 08:17:00 Test Item Value Reference Range Interpretation Comments CO2 (test code = CO2) 30 24-32 [place] 980501-08-11 08:17:00 Test Item Value Reference Range Interpretation Comments AGAP (test code = AGAP) 6.9 10.0-20.0 [place] 980501-08-11 08:17:00 Test Item Value Reference Range Interpretation Comments Calcium Lvl (test code = Calcium Lvl) 8.5 8.5-10.5 [place] 980501-08-11 08:17:00 Test Item Value Reference Range Interpretation Comments eGFR (test code = eGFR) 10 [facility] DYZUK5564-84-28 08:17:00 Test Item Value Reference Range Interpretation Comments Phosphorus (test code = Phosphorus) 3.0 2.5-4.5 [facility] [id number] 08:17:00 Test Item Value Reference Range Interpretation Comments Magnesium Lvl (test code = Magnesium 2.4 1.8-2.4 Lvl) [facility]PE[facility]IP[facility]FIY7110[facility] 08:17:00 Test Item Value Reference Range Interpretation Comments WBC (test code = WBC) 2.3 3.7-10.4 [facility] CenterQrekkziZINHUSJDTB2752-04-95 08:17:00 Test Item Value Reference Range Interpretation Comments RBC (test code = RBC) 2.65 4.20-5.40 [place] 078471-08-11 08:17:00 Test Item Value Reference Range Interpretation Comments Hgb (test code = Hgb) 7.9 12.0-16.0 [facility] CenterZflosgnHYQJBBBYTQ7165-47-18 08:17:00 Test Item Value Reference Range Interpretation Comments Hct (test code = Hct) 24.0 36.0-48.0 [facility] CenterZbrjalyIKFOYIFJVU8250-60-32 08:17:00 Test Item Value Reference Range Interpretation Comments MCV (test code = MCV) 90.6 80.0-98.0 [facility] CenterLnjoclcSDYMLSBAFU0114-95-21 08:17:00 Test Item Value Reference Range Interpretation Comments MCH (test code = MCH) 29.7 pg 27.0-31.0 [facility] CenterVlgcvezZPEFPKEWYY4436-40-75 08:17:00 Test Item Value Reference Range Interpretation Comments MCHC (test code = MCHC) 32.7 32.0-36.0 [facility] CenterUxphowySJZFTBSCXX8956-90-35 08:17:00 Test Item Value Reference Range Interpretation Comments RDW (test code = RDW) 19.1 11.5-14.5 [place] 078471-08-11 08:17:00 Test Item Value Reference Range Interpretation Comments Platelet (test code = Platelet) 71 133-450 [facility] CenterXydalcvQXKCMKYRBY7752-88-21 08:17:00 Test Item Value Reference Range Interpretation Comments MPV (test code = MPV) 9.9 7.4-10.4 [place] 078471-08-11 08:17:00 Test Item Value Reference Range Interpretation Comments Segs (test code = Segs) 56.1 45.0-75.0 [place] 078471-08-11 08:17:00 Test Item Value Reference Range Interpretation Comments Lymphocytes (test code = Lymphocytes) 28.9 20.0-40.0 [place] 078471-08-11 08:17:00 Test Item Value Reference Range Interpretation Comments Monocytes (test code = Monocytes) 8.1 2.0-12.0 [place] 078471-08-11 08:17:00 Test Item Value Reference Range Interpretation Comments Eosinophils (test code = 5.9 See_Comment [A utomated message] The Eosinophils) system which ge nerated this result tra nsmitted reference range : <=4.0. The reference r leo was not used to int erpret this result as normal/abnormal . [facility] CenterTkmqoepKOPMOFWFQJ3652-03-09 08:17:00 Test Item Value Reference Range Interpretation Comments Basophils (test code = 1.0 See_Comment [Aut omated message] The Basophils) system which ge nerated this result tra nsmitted reference range : <=1.0. The reference r leo was not used to int erpret this result as normal/abnormal . [facility] CenterGrvbxvnGKLGPWNPHX3005-06-43 08:17:00 Test Item Value Reference Range Interpretation Comments Neutrophils # (test code = Neutrophils 1.3 1.5-8.1 #) [facility] CenterDxirlkdTVQPFPTSPB2270-09-31 08:17:00 Test Item Value Reference Range Interpretation Comments Lymphocytes # (test code = Lymphocytes 0.7 1.0-5.5 #) [place] 078471-08-11 08:17:00 Test Item Value Reference Range Interpretation Comments Monocytes # (test code 0.2 See_Comment [Aut omated message] The = Monocytes #) system which generated this result tra nsmitted reference range : <=0.8. The reference r leo was not used to int erpret this result as normal/abnormal . [place] 078471-08-11 08:17:00 Test Item Value Reference Range Interpretation Comments Eosinophils # (test code 0.1 See_Comment [A utomated message] The = Eosinophils #) system whic h generated this result tra nsmitted reference range : <=0.5. The reference r leo was not used to int erpret this result as normal/abnormal . [place] 980501-08-10 09:30:00 Test Item Value Reference Range Interpretation Comments Glucose Lvl (test code = Glucose Lvl) 61 70-99 [place] 980501-08-10 09:30:00 Test Item Value Reference Range Interpretation Comments BUN (test code = BUN) 13 7-22 [place] 980501-08-10 09:30:00 Test Item Value Reference Range Interpretation Comments Creatinine Lvl (test code = Creatinine 3.71 0.50-1.40 Lvl) [place] 980501-08-10 09:30:00 Test Item Value Reference Range Interpretation Comments Sodium Lvl (test code = Sodium Lvl) 136 135-145 [place] 980501-08-10 09:30:00 Test Item Value Reference Range Interpretation Comments Potassium Lvl (test code = Potassium 4.3 3.5-5.1 Lvl) [place] 980501-08-10 09:30:00 Test Item Value Reference Range Interpretation Comments Chloride Lvl (test code = Chloride Lvl) 103 95-109 [place] 980501-08-10 09:30:00 Test Item Value Reference Range Interpretation Comments CO2 (test code = CO2) 27 24-32 [place] 980501-08-10 09:30:00 Test Item Value Reference Range Interpretation Comments Calcium Lvl (test code = Calcium Lvl) 7.9 8.5-10.5 [place] 980501-08-10 09:30:00 Test Item Value Reference Range Interpretation Comments AGAP (test code = AGAP) 10.3 10.0-20.0 [place] 980501-08-10 09:30:00 Test Item Value Reference Range Interpretation Comments eGFR (test code = eGFR) 15 [place] 980501-08-10 09:30:00 Test Item Value Reference Range Interpretation Comments Magnesium Lvl (test code = Magnesium 2.3 1.8-2.4 Lvl) [place] 980501-08-10 09:30:00 Test Item Value Reference Range Interpretation Comments Phosphorus (test code = Phosphorus) 3.1 2.5-4.5 [place] 078471-08-10 09:30:00 Test Item Value Reference Range Interpretation Comments Segs (test code = Segs) 61.5 45.0-75.0 [facility] CenterDezvizlRAPRRLURCK8000-98-51 09:30:00 Test Item Value Reference Range Interpretation Comments Lymphocytes (test code = Lymphocytes) 24.6 20.0-40.0 [facility] CenterFdnsczvJYXRWQRIPO7926-18-12 09:30:00 Test Item Value Reference Range Interpretation Comments Monocytes (test code = Monocytes) 7.4 2.0-12.0 [place] 078471-08-10 09:30:00 Test Item Value Reference Range Interpretation Comments Eosinophils (test code = 5.5 See_Comment [A utomated message] The Eosinophils) system which ge nerated this result tra nsmitted reference range : <=4.0. The reference r leo was not used to int erpret this result as normal/abnormal . [facility] CenterQwkyotwLPBRCOIHMU4700-02-38 09:30:00 Test Item Value Reference Range Interpretation Comments Basophils (test code = 1.0 See_Comment [Aut omated message] The Basophils) system which ge nerated this result tra nsmitted reference range : <=1.0. The reference r leo was not used to int erpret this result as normal/abnormal . [facility] CenterKqvffliGUZLXLSOHE9303-92-54 09:30:00 Test Item Value Reference Range Interpretation Comments Neutrophils # (test code = Neutrophils 1.6 1.5-8.1 #) [facility] CenterMnjezmjQASDGIIWKJ1214-77-02 09:30:00 Test Item Value Reference Range Interpretation Comments Lymphocytes # (test code = Lymphocytes 0.6 1.0-5.5 #) [place] 078471-08-10 09:30:00 Test Item Value Reference Range Interpretation Comments Monocytes # (test code 0.2 See_Comment [Aut omated message] The = Monocytes #) system which generated this result tra nsmitted reference range : <=0.8. The reference r leo was not used to int erpret this result as normal/abnormal . [facility] CenterCudbkimZZTLAFQZYZ0384-33-69 09:30:00 Test Item Value Reference Range Interpretation Comments Eosinophils # (test code 0.1 See_Comment [A utomated message] The = Eosinophils #) system whic h generated this result tra nsmitted reference range : <=0.5. The reference r leo was not used to int erpret this result as normal/abnormal . [facility] CenterDplvfavYLUJGPGGOG9741-73-46 09:30:00 Test Item Value Reference Range Interpretation [...] studies, if clinically indicated, are recommended. CPT: 57900 [place] 078471-08-10 09:30:00 Test Item Value Reference Range Interpretation Comments WBC (test code = WBC) 2.5 3.7-10.4 [place] 078471-08-10 09:30:00 Test Item Value Reference Range Interpretation Comments RBC (test code = RBC) 2.68 4.20-5.40 [place] [address]-08-10 09:30:00 Test Item Value Reference Range Interpretation Comments Hgb (test code = Hgb) 8.2 12.0-16.0 [place] 84[address]-08-10 09:30:00 Test Item Value Reference Range Interpretation Comments Hct (test code = Hct) 24.3 36.0-48.0 [place] [address]-08-10 09:30:00 Test Item Value Reference Range Interpretation Comments MCV (test code = MCV) 90.9 80.0-98.0 [place] [address]-08-10 09:30:00 Test Item Value Reference Range Interpretation Comments MCH (test code = MCH) 30.5 pg 27.0-31.0 [place] [address]-08-10 09:30:00 Test Item Value Reference Range Interpretation Comments MCHC (test code = MCHC) 33.6 32.0-36.0 [place] 84[address]-08-10 09:30:00 Test Item Value Reference Range Interpretation Comments RDW (test code = RDW) 19.4 11.5-14.5 [place] 078471-08-10 09:30:00 Test Item Value Reference Range Interpretation Comments Platelet (test code = Platelet) 70 133-450 [facility] CenterOliezxxZKKYGPBYIN5429-44-81 09:30:00 Test Item Value Reference Range Interpretation Comments MPV (test code = MPV) 10.7 7.4-10.4 [place] 980501-08-09 05:10:00 Test Item Value Reference Range Interpretation Comments Glucose Lvl (test code = Glucose Lvl) 69 70-99 [place] 980501-08-09 05:10:00 Test Item Value Reference Range Interpretation Comments BUN (test code = BUN) 29 7-22 [place] 980501-08-09 05:10:00 Test Item Value Reference Range Interpretation Comments Creatinine Lvl (test code = Creatinine 5.14 0.50-1.40 Lvl) [place] 980501-08-09 05:10:00 Test Item Value Reference Range Interpretation Comments Sodium Lvl (test code = Sodium Lvl) 134 135-145 [place] 980501-08-09 05:10:00 Test Item Value Reference Range Interpretation Comments Potassium Lvl (test code = Potassium 5.1 3.5-5.1 Lvl) [facility]2021-08-09 05:10:00 Test Item Value Reference Range Interpretation Comments Chloride Lvl (test code = Chloride Lvl) 98 95-109 [place] 980501-08-09 05:10:00 Test Item Value Reference Range Interpretation Comments CO2 (test code = CO2) 29 24-32 [place] 980501-08-09 05:10:00 Test Item Value Reference Range Interpretation Comments Calcium Lvl (test code = Calcium Lvl) 7.6 8.5-10.5 [place] 980501-08-09 05:10:00 Test Item Value Reference Range Interpretation Comments AGAP (test code = AGAP) 12.1 10.0-20.0 [place] 980501-08-09 05:10:00 Test Item Value Reference Range Interpretation Comments eGFR (test code = eGFR) 10 [place] 980501-08-09 05:10:00 Test Item Value Reference Range Interpretation Comments Magnesium Lvl (test code = Magnesium 2.3 1.8-2.4 Lvl) [facility]2021-08-09 05:10:00 Test Item Value Reference Range Interpretation Comments Phosphorus (test code = Phosphorus) 5.0 2.5-4.5 [place] 078471-08-09 05:10:00 Test Item Value Reference Range Interpretation Comments WBC (test code = WBC) 2.7 3.7-10.4 [facility] CenterAvwogsoHWDSRGUGJW9091-28-27 05:10:00 Test Item Value Reference Range Interpretation Comments RBC (test code = RBC) 2.80 4.20-5.40 [place] 078471-08-09 05:10:00 Test Item Value Reference Range Interpretation Comments Hgb (test code = Hgb) 8.5 12.0-16.0 [place] 078471-08-09 05:10:00 Test Item Value Reference Range Interpretation Comments Hct (test code = Hct) 25.7 36.0-48.0 [facility] CenterQbuvywzNRPSZBANUQ9832-12-53 05:10:00 Test Item Value Reference Range Interpretation Comments MCV (test code = MCV) 91.7 80.0-98.0 [place] 078471-08-09 05:10:00 Test Item Value Reference Range Interpretation Comments MCH (test code = MCH) 30.4 pg 27.0-31.0 [facility] CenterMfdpulyRHFNLWNOBB0608-47-78 05:10:00 Test Item Value Reference Range Interpretation Comments MCHC (test code = MCHC) 33.1 32.0-36.0 [facility] CenterQbovadsHSEEKFNPOG5601-89-63 05:10:00 Test Item Value Reference Range Interpretation Comments RDW (test code = RDW) 19.2 11.5-14.5 [place] 078471-08-09 05:10:00 Test Item Value Reference Range Interpretation Comments Platelet (test code = Platelet) 72 133-450 [facility] CenterFdahfzzXXDPEEEGQC3075-13-75 05:10:00 Test Item Value Reference Range Interpretation Comments MPV (test code = MPV) 9.9 7.4-10.4 [facility] CenterYlzjtqpMJDBULZTFI6953-98-03 05:10:00 Test Item Value Reference Range Interpretation Comments Segs (test code = Segs) 72.6 45.0-75.0 [facility] CenterGagfnewFLAWCNORCS1828-13-61 05:10:00 Test Item Value Reference Range Interpretation Comments Lymphocytes (test code = Lymphocytes) 15.9 20.0-40.0 [facility] CenterLwwxomgPLNJJFRPJV2326-80-33 05:10:00 Test Item Value Reference Range Interpretation Comments Monocytes (test code = Monocytes) 7.3 2.0-12.0 [facility] CenterEqdxlodPPBNRQBZFX5893-70-42 05:10:00 Test Item Value Reference Range Interpretation Comments Eosinophils (test code = 3.4 See_Comment [A utomated message] The Eosinophils) system which ge nerated this result tra nsmitted reference range : <=4.0. The reference r leo was not used to int erpret this result as normal/abnormal . [facility] CenterUgfqjngHARHPNMWNJ0618-83-31 05:10:00 Test Item Value Reference Range Interpretation Comments Basophils (test code = 0.8 See_Comment [Aut omated message] The Basophils) system which ge nerated this result tra nsmitted reference range : <=1.0. The reference r leo was not used to int erpret this result as normal/abnormal . [facility] CenterUldnzpdEJUUDPJRQV8471-42-86 05:10:00 Test Item Value Reference Range Interpretation Comments Neutrophils # (test code = Neutrophils 1.9 1.5-8.1 #) [facility] CenterWcizoesTUDELVPFPB5244-93-87 05:10:00 Test Item Value Reference Range Interpretation Comments Lymphocytes # (test code = Lymphocytes 0.4 1.0-5.5 #) [facility] CenterHyydvduBBJUTNOUBL7932-90-12 05:10:00 Test Item Value Reference Range Interpretation Comments Monocytes # (test code 0.2 See_Comment [Aut omated message] The = Monocytes #) system which generated this result tra nsmitted reference range : <=0.8. The reference r leo was not used to int erpret this result as normal/abnormal . [facility] CenterUvgxrleERFZSICFXJ8927-00-83 05:10:00 Test Item Value Reference Range Interpretation Comments Eosinophils # (test code 0.1 See_Comment [A utomated message] The = Eosinophils #) system whic h generated this result tra nsmitted reference range : <=0.5. The reference r leo was not used to int erpret this result as normal/abnormal . [facility]2021-08-09 05:10:00 Test Item Value Reference Range Interpretation Comments Ca Ion WB (test code = Ca Ion WB) 1.10 1.05-1.25 [place] 787541-08-09 05:10:00 Test Item Value Reference Range Interpretation Comments Ca Norm WB (test code = Ca Norm WB) 1.06 1.05-1.25 [facility] RCKPVRCXNJ9095-85-68 18:36:00 Test Item Value Reference Range Interpretation Comments C difficile DNA (test Negative (01/26/21 1:36 code = C difficile DNA) PM) [facility]2021-08-08 07:33:00 Test Item Value Reference Range Interpretation Comments Ca Ion WB (test code = Ca Ion WB) 1.12 1.05-1.25 [place] 787541-08-08 07:33:00 Test Item Value Reference Range Interpretation Comments Ca Norm WB (test code = Ca Norm WB) 1.07 1.05-1.25 [place] 980501-08-08 07:30:00 Test Item Value Reference Range Interpretation Comments Glucose Lvl (test code = Glucose Lvl) 65 70-99 [facility]2021-08-08 07:30:00 Test Item Value Reference Range Interpretation Comments BUN (test code = BUN) 21 7-22 [facility]2021-08-08 07:30:00 Test Item Value Reference Range Interpretation Comments Creatinine Lvl (test code = Creatinine 4.18 0.50-1.40 Lvl) [facility]2021-08-08 07:30:00 Test Item Value Reference Range Interpretation Comments Sodium Lvl (test code = Sodium Lvl) 136 135-145 [place] 980501-08-08 07:30:00 Test Item Value Reference Range Interpretation Comments Potassium Lvl (test code = Potassium 4.5 3.5-5.1 Lvl) [facility]2021-08-08 07:30:00 Test Item Value Reference Range Interpretation Comments Chloride Lvl (test code = Chloride Lvl) 99 95-109 [place] 980501-08-08 07:30:00 Test Item Value Reference Range Interpretation Comments CO2 (test code = CO2) 31 24-32 [place] 980501-08-08 07:30:00 Test Item Value Reference Range Interpretation Comments AGAP (test code = AGAP) 10.5 10.0-20.0 [place] 980501-08-08 07:30:00 Test Item Value Reference Range Interpretation Comments Calcium Lvl (test code = Calcium Lvl) 7.9 8.5-10.5 [place] 980501-08-08 07:30:00 Test Item Value Reference Range Interpretation Comments eGFR (test code = eGFR) 13 [place] 980501-08-08 07:30:00 Test Item Value Reference Range Interpretation Comments Magnesium Lvl (test code = Magnesium 2.2 1.8-2.4 Lvl) [place] 980501-08-08 07:30:00 Test Item Value Reference Range Interpretation Comments Phosphorus (test code = Phosphorus) 4.4 2.5-4.5 [place] 078471-08-08 07:30:00 Test Item Value Reference Range Interpretation Comments WBC (test code = WBC) 2.3 3.7-10.4 [place] 078471-08-08 07:30:00 Test Item Value Reference Range Interpretation Comments RBC (test code = RBC) 2.88 4.20-5.40 [place] 078471-08-08 07:30:00 Test Item Value Reference Range Interpretation Comments Hgb (test code = Hgb) 8.6 12.0-16.0 [place] 078471-08-08 07:30:00 Test Item Value Reference Range Interpretation Comments Hct (test code = Hct) 26.6 36.0-48.0 [place] 078471-08-08 07:30:00 Test Item Value Reference Range Interpretation Comments MCV (test code = MCV) 92.2 80.0-98.0 [place] 078471-08-08 07:30:00 Test Item Value Reference Range Interpretation Comments MCH (test code = MCH) 29.8 pg 27.0-31.0 [place] 078471-08-08 07:30:00 Test Item Value Reference Range Interpretation Comments MCHC (test code = MCHC) 32.4 32.0-36.0 [place] 078471-08-08 07:30:00 Test Item Value Reference Range Interpretation Comments RDW (test code = RDW) 19.7 11.5-14.5 [place] 078471-08-08 07:30:00 Test Item Value Reference Range Interpretation Comments Platelet (test code = Platelet) 83 133-450 [place] 078471-08-08 07:30:00 Test Item Value Reference Range Interpretation Comments MPV (test code = MPV) 10.2 7.4-10.4 [place] 078471-08-08 07:30:00 Test Item Value Reference Range Interpretation Comments Segs (test code = Segs) 64.0 45.0-75.0 [place] 078471-08-08 07:30:00 Test Item Value Reference Range Interpretation Comments Lymphocytes (test code = Lymphocytes) 24.1 20.0-40.0 [place] 078471-08-08 07:30:00 Test Item Value Reference Range Interpretation Comments Monocytes (test code = Monocytes) 7.0 2.0-12.0 [place] 078471-08-08 07:30:00 Test Item Value Reference Range Interpretation Comments Eosinophils (test code = 3.7 See_Comment [A utomated message] The Eosinophils) system which ge nerated this result tra nsmitted reference range : <=4.0. The reference r leo was not used to int erpret this result as normal/abnormal . [place] 078471-08-08 07:30:00 Test Item Value Reference Range Interpretation Comments Basophils (test code = 1.2 See_Comment [Aut omated message] The Basophils) system which ge nerated this result tra nsmitted reference range : <=1.0. The reference r leo was not used to int erpret this result as normal/abnormal . [facility]bec[facility]bLVCAVHUJAK3206-[facility] 07:30:00 Test Item Value Reference Range Interpretation Comments Neutrophils # (test code = Neutrophils 1.5 1.5-8.1 #) [place] 078471-08-08 07:30:00 Test Item Value Reference Range Interpretation Comments Lymphocytes # (test code = Lymphocytes 0.6 1.0-5.5 #) [place] 078471-08-08 07:30:00 Test Item Value Reference Range Interpretation Comments Monocytes # (test code 0.2 See_Comment [Aut omated message] The = Monocytes #) system which generated this result tra nsmitted reference range : <=0.8. The reference r leo was not used to int erpret this result as normal/abnormal . [place] 078471-08-08 07:30:00 Test Item Value Reference Range Interpretation Comments Eosinophils # (test code 0.1 See_Comment [A utomated message] The = Eosinophils #) system whic h generated this result tra nsmitted reference range : <=0.5. The reference r leo was not used to int erpret this result as normal/abnormal . [place] 980501-08-07 09:32:00 Test Item Value Reference Range Interpretation Comments Glucose Lvl (test code = Glucose Lvl) 59 70-99 [place] 980501-08-07 09:32:00 Test Item Value Reference Range Interpretation Comments BUN (test code = BUN) 11 7-22 [place] 980501-08-07 09:32:00 Test Item Value Reference Range Interpretation Comments Creatinine Lvl (test code = Creatinine 2.75 0.50-1.40 Lvl) [place] 980501-08-07 09:32:00 Test Item Value Reference Range Interpretation Comments Sodium Lvl (test code = Sodium Lvl) 138 135-145 [place] 980501-08-07 09:32:00 Test Item Value Reference Range Interpretation Comments Potassium Lvl (test code = Potassium 4.1 3.5-5.1 Lvl) [place] 980501-08-07 09:32:00 Test Item Value Reference Range Interpretation Comments Chloride Lvl (test code = Chloride Lvl) 104 95-109 [place] 980501-08-07 09:32:00 Test Item Value Reference Range Interpretation Comments CO2 (test code = CO2) 29 24-32 [place] 980501-08-07 09:32:00 Test Item Value Reference Range Interpretation Comments Calcium Lvl (test code = Calcium Lvl) 8.3 8.5-10.5 [place] 980501-08-07 09:32:00 Test Item Value Reference Range Interpretation Comments AGAP (test code = AGAP) 9.1 10.0-20.0 [place] 980501-08-07 09:32:00 Test Item Value Reference Range Interpretation Comments eGFR (test code = eGFR) 21 [place] 980501-08-07 09:32:00 Test Item Value Reference Range Interpretation Comments Magnesium Lvl (test code = Magnesium 2.2 1.8-2.4 Lvl) [place] 980501-08-07 09:32:00 Test Item Value Reference Range Interpretation Comments Phosphorus (test code = Phosphorus) 3.9 2.5-4.5 [place] 078471-08-07 09:32:00 Test Item Value Reference Range Interpretation Comments WBC (test code = WBC) 2.3 3.7-10.4 [place] [address]107-08-07 09:32:00 Test Item Value Reference Range Interpretation Comments RBC (test code = RBC) 2.78 4.20-5.40 [place] 84[address]-08-07 09:32:00 Test Item Value Reference Range Interpretation Comments Hgb (test code = Hgb) 8.4 12.0-16.0 [place] 84107-08-07 09:32:00 Test Item Value Reference Range Interpretation Comments Hct (test code = Hct) 25.2 36.0-48.0 [place] 84107-08-07 09:32:00 Test Item Value Reference Range Interpretation Comments MCV (test code = MCV) 90.5 80.0-98.0 [place] 078471-08-07 09:32:00 Test Item Value Reference Range Interpretation Comments MCH (test code = MCH) 30.4 pg 27.0-31.0 [place] 078471-08-07 09:32:00 Test Item Value Reference Range Interpretation Comments MCHC (test code = MCHC) 33.5 32.0-36.0 [place] 078471-08-07 09:32:00 Test Item Value Reference Range Interpretation Comments RDW (test code = RDW) 19.0 11.5-14.5 [place] 078471-08-07 09:32:00 Test Item Value Reference Range Interpretation Comments Platelet (test code = Platelet) 87 133-450 [place] 078471-08-07 09:32:00 Test Item Value Reference Range Interpretation Comments MPV (test code = MPV) 10.0 7.4-10.4 [facility] [id number] 05:33:00 Test Item Value Reference Range Interpretation Comments ABO/Rh (test code = ABO/Rh) B POS [facility] [id number] 05:33:00 Test Item Value Reference Range Interpretation Comments Antibody Scrn (test Negative (01/24/21 12:33 code = Antibody Scrn) AM) [facility] CenterYyjonuwECZGNNYMXW4670-59-14 05:33:00 Test Item Value Reference Range Interpretation Comments Segs (test code = Segs) 60.2 45.0-75.0 [facility] CenterXikhkfjEYONNQXIQL8312-28-49 05:33:00 Test Item Value Reference Range Interpretation Comments Lymphocytes (test code = Lymphocytes) 28.6 20.0-40.0 [facility] CenterRinwsbmYMGIIOZJZW6056-92-28 05:33:00 Test Item Value Reference Range Interpretation Comments Monocytes (test code = Monocytes) 5.8 2.0-12.0 [facility] CenterAumhmwgRHVOGJAAUR0362-21-71 05:33:00 Test Item Value Reference Range Interpretation Comments Eosinophils (test code = 4.2 See_Comment [A utomated message] The Eosinophils) system which ge nerated this result tra nsmitted reference range : <=4.0. The reference r leo was not used to int erpret this result as normal/abnormal . [facility] CenterDksyztjGREUWKMCFD1801-28-05 05:33:00 Test Item Value Reference Range Interpretation Comments Basophils (test code = 1.2 See_Comment [Aut omated message] The Basophils) system which ge nerated this result tra nsmitted reference range : <=1.0. The reference r leo was not used to int erpret this result as normal/abnormal . [facility] CenterPzzdfyoGNVNAAJHJE3943-11-01 05:33:00 Test Item Value Reference Range Interpretation Comments Neutrophils # (test code = Neutrophils 2.2 1.5-8.1 #) [facility] CenterAcnzdgrUSWNESNINB1950-29-61 05:33:00 Test Item Value Reference Range Interpretation Comments Lymphocytes # (test code = Lymphocytes 1.1 1.0-5.5 #) [facility] CenterKwebhemQDBPILEACF1671-83-99 05:33:00 Test Item Value Reference Range Interpretation Comments Monocytes # (test code 0.2 See_Comment [Aut omated message] The = Monocytes #) system which generated this result tra nsmitted reference range : <=0.8. The reference r leo was not used to int erpret this result as normal/abnormal . [facility] CenterBfxtgynAJRCYTNIHE2738-12-91 05:33:00 Test Item Value Reference Range Interpretation Comments Eosinophils # (test code 0.2 See_Comment [A utomated message] The = Eosinophils #) system whic h generated this result tra nsmitted reference range : <=0.5. The reference r leo was not used to int erpret this result as normal/abnormal . [facility] CenterTwkdqwhKCAWOUCKMA0203-23-62 05:53:00 Test Item Value Reference Range Interpretation Comments PT (test code = PT) 14.4 s 12.0-14.7 [facility] CenterKmyzmewKCNTVTNMJV0598-82-97 05:53:00 Test Item Value Reference Range Interpretation Comments INR (test code = INR) 1.13 1 0.85-1.17 [facility] CenterFlwxaerZTZYTVKUHJ2918-83-05 05:53:00 Test Item Value Reference Range Interpretation Comments Fibrinogen Lvl (test code = Fibrinogen 319 230-510 Lvl) [facility]OmhtxoaMGSXYNOIME8358-59-03 05:53:00 Test Item Value Reference Range Interpretation Comments Thrombin Time (test code = Thrombin 15.9 s 15.0-21.2 Time) [facility] CenterIwjhofeAWCNUMRLAS7429-98-48 05:53:00 Test Item Value Reference Range Interpretation Comments PTT (test code = PTT) 47.0 s 22.9-35.8 [facility] CenterDsnehdsMEAYYZJUFX9977-50-43 05:53:00 Test Item Value Reference Range Interpretation Comments D-Dimer (test code = D-Dimer) 0.91 [facility] CenterGezcqdxZSSNZUXSFA6578-96-04 05:53:00 Test Item Value Reference Range Interpretation Comments Basophils # (test code 0.1 See_Comment [Aut omated message] The = Basophils #) system which generated this result tra nsmitted reference range : <=0.2. The reference r leo was not used to int erpret this result as normal/abnormal . [facility]PARATHYROID [id number] 05:53:00 Test Item Value Reference Range Interpretation Comments Ca Ion WB (test code = Ca Ion WB) 1.24 1.05-1.25 [facility] [id number] 05:53:00 Test Item Value Reference Range Interpretation Comments Ca Norm WB (test code = Ca Norm WB) 1.25 1.05-1.25 [facility] LakeAdvanced In Vitro Cell TechnologiesCAROLINAS CONTINUECARE HOSPITAL AT UNIVERSITYXOYTK5321-12-02 10:09:00 Test Item Value Reference Range Interpretation Comments ALT (test code = ALT) 49 See_Comment [Auto mated message] The system which ge nerated this result transmit rohit reference range : <=65. The reference range was not used to interpr et this result as reji l/abnormal. [facility] LakeModular Robotics [id number] 10:09:00 Test Item Value Reference Range Interpretation Comments Albumin Lvl (test code = Albumin Lvl) 2.8 3.5-5.0 [facility] [id number] 10:09:00 Test Item Value Reference Range Interpretation Comments Alk Phos (test code = Alk Phos) 41 39-136 [facility] [id number] 10:09:00 Test Item Value Reference Range Interpretation Comments Bili Direct (test code 0.2 See_Comment [Aut omated message] The = Bili Direct) system which generated this result tra nsmitted reference range : <=0.3. The reference r leo was not used to int erpret this result as reji l/abnormal. [facility] Lake[facility] [id number] 10:09:00 Test Item Value Reference Range Interpretation Comments Bili Total (test code = Bili Total) 0.6 0.2-1.3 [facility] LakeMod[facility] [id number] 10:09:00 Test Item Value Reference Range Interpretation Comments Bili Indirect (test 0.4 See_Comment [Automa rohit message] The code = Bili Indirect) system which generated this result tra nsmitted reference range : <=1.0. The reference r leo was not used to int erpret this result as normal/abnormal . [facility] [id number] 10:09:00 Test Item Value Reference Range Interpretation Comments Total Protein (test code = Total 5.6 6.4-8.4 Protein) [facility] [id number] 10:09:00 Test Item Value Reference Range Interpretation Comments AST (test code = AST) 33 See_Comment [Auto mated message] The system which ge nerated this result transmit rohit reference range : <=37. The reference range was not used to interpr et this result as reji l/abnormal. [facility] HospitalBozuko [id number] 10:09:00 Test Item Value Reference Range Interpretation Comments Globulin (test code = Globulin) 2.8 2.7-4.2 [facility] HospitalBozuko [id number] 10:09:00 Test Item Value Reference Range Interpretation Comments A/G Ratio (test code = A/G Ratio) 1.0 1 0.7-1.6 [facility] HospitalBozuko [id number] 10:09:00 Test Item Value Reference Range Interpretation Comments Amylase Lvl (test code = Amylase Lvl) 19 25-115 [facility] [id number] 10:09:00 Test Item Value Reference Range Interpretation Comments Lipase Lvl (test code = Lipase Lvl) no gt 73-393 [facility] CenterJfeldxgNQTKGXUMUK1262-89-01 10:09:00 Test Item Value Reference Range Interpretation Comments PTT (test code = PTT) 41.4 s 22.9-35.8 [facility] CenterHifiiuiMHBFQJLWAM5169-57-89 10:09:00 Test Item Value Reference Range Interpretation Comments PT (test code = PT) 15.4 s 12.0-14.7 [facility] CenterGdgusabDBTXFWMHDN3572-79-19 10:09:00 Test Item Value Reference Range Interpretation Comments INR (test code = INR) 1.24 1 0.85-1.17 [facility] CenterOlifearTKOWSVPIIT8002-19-64 10:09:00 Test Item Value Reference Range Interpretation Comments Fibrinogen Lvl (test code = Fibrinogen 312 230-510 Lvl) [facility] CenterXnawsdaUJHOOVQRAJ6948-64-11 10:09:00 Test Item Value Reference Range Interpretation Comments Thrombin Time (test code = Thrombin 16.6 s 15.0-21.2 Time) [facility] CenterYvmavdrUHPLXPSICU6311-07-68 10:09:00 Test Item Value Reference Range Interpretation Comments D-Dimer (test code = D-Dimer) 4.91 [place] 078471-08-04 10:09:00 Test Item Value Reference Range Interpretation Comments Basophils # (test code 0.1 See_Comment [Aut omated message] The = Basophils #) system which generated this result tra nsmitted reference range : <=0.2. The reference r leo was not used to int erpret this result as normal/abnormal . [facility]IAL [id number] 10:09:00 Test Item Value Reference Range Interpretation Comments Hgb A1C (test code = Hgb A1C) 5.6 [facility] HospitalCHEM [id number] 09:07:00 Test Item Value Reference Range Interpretation Comments Amylase Lvl (test code = Amylase Lvl) 4 25-115 [facility] Hos[id number] 09:07:00 Test Item Value Reference Range Interpretation Comments Thrombin Time (test code = Thrombin 18.0 s 15.0-21.2 Time) [facility] HospitalEvzxhjlTSWQWDVXXM0738-24-71 09:07:00 Test Item Value Reference Range Interpretation Comments PT (test code = PT) 24.6 s 12.0-14.7 [facility] HospitalGzpxydjXZVKHIEYPM9389-08-35 09:07:00 Test Item Value Reference Range Interpretation Comments INR (test code = INR) 2.31 1 0.85-1.17 [facility] HospitalKhpgdcuHJYFJMUZTK6883-64-66 09:07:00 Test Item Value Reference Range Interpretation Comments PTT (test code = PTT) 57.5 s 22.9-35.8 [facility] HospitalMvnushqCUFNGFYSPG0157-63-13 09:07:00 Test Item Value Reference Range Interpretation Comments Fibrinogen Lvl (test code = Fibrinogen 125 230-510 Lvl) [facility] HospitalLmhpehfLOGAKKJIHK5004-66-84 09:07:00 Test Item Value Reference Range Interpretation Comments D-Dimer (test code = D-Dimer) 2.28 [facility] [id number] 04:52:00 Test Item Value Reference Range Interpretation Comments RBC product (test code Product available = RBC product) (01/21/21 11:52 PM) [facility] HospitalCARAC [id number] 00:38:00 Test Item Value Reference Range Interpretation Comments Troponin-I (test code no gt See_Comment [Auto mated message] The = Troponin-I) system which g enerated this result transmit rohit reference range : <=0.40. The reference r leo was not used to interpr et this result as reji l/abnormal. [facility] [id number] 17:47:00 Test Item Value Reference Range Interpretation Comments BNP (test code = BNP) 4 [facility] MichiganDIAC [id number] 17:47:00 Test Item Value Reference Range Interpretation Comments Troponin-I (test code 0.02 See_Comment [Auto mated message] The = Troponin-I) system which g enerated this result transmit rohit reference range : <=0.40. The reference r leo was not used to interpr et this result as reji l/abnormal. [facility] [id number] 17:47:00 Test Item Value Reference Range Interpretation Comments Hep Bs Ag (test code Negative *NA*(01/21/21 = Hep Bs Ag) 12:47 PM) [facility] LakeMod[facility] [id number] 17:43:00 Test Item Value Reference Range Interpretation Comments B/C Ratio (test code = B/C Ratio) 5 1 6-25 [facility]Mod[facility] [id number] 17:43:00 Test Item Value Reference Range Interpretation Comments ALT (test code = ALT) 66 See_Comment [Auto mated message] The system which ge nerated this result transmit rohit reference range : <=65. The reference range was not used to interpr et this result as reji l/abnormal. [facility] AMS VariCode [id number] 17:43:00 Test Item Value Reference Range Interpretation Comments Albumin Lvl (test code = Albumin Lvl) 3.0 3.5-5.0 [facility] [id number] 17:43:00 Test Item Value Reference Range Interpretation Comments Alk Phos (test code = Alk Phos) 40 39-[address] [facility] AMS VariCode [id number] 17:43:00 Test Item Value Reference Range Interpretation Comments Bili Total (test code = Bili Total) 0.5 0.2-1.[address] [facility] AMS VariCode [id number] 17:43:00 Test Item Value Reference Range Interpretation Comments Total Protein (test code = Total 5.7 6.4-8.4 Protein) [facility] [id number] 17:43:00 Test Item Value Reference Range Interpretation Comments AST (test code = AST) 52 See_Comment [Auto mated message] The system which ge nerated this result transmit rohit reference range : <=37. The reference range was not used to interpr et this result as reji l/abnormal. [facility] AMS VariCode [id number] 17:43:00 Test Item Value Reference Range Interpretation Comments Globulin (test code = Globulin) 2.7 2.7-4.2 [facility] [id number] 17:43:00 Test Item Value Reference Range Interpretation Comments A/G Ratio (test code = A/G Ratio) 1.1 1 0.7-1.6 [facility] [id number] 17:43:00 Test Item Value Reference Range Interpretation Comments Lactic Acid Lvl (test code = Lactic 1.1 0.5-2.2 Acid Lvl) [facility] HospitalHow[facility] [id number] 16:20:00 Test Item Value Reference Range Interpretation Comments ABO/Rh (test code = ABO/Rh) B POS [facility] LakeAdvanced In Vitro Cell TechnologiesHowGood [facility] [id number] 16:20:00 Test Item Value Reference Range Interpretation Comments Antibody Scrn (test Negative (01/21/21 11:20 code = Antibody Scrn) AM) [facility] H[id number] 16:20:00 Test Item Value Reference Range Interpretation Comments Anisocyte (test code = 1+ *ABN*(01/21/21 Anisocyte) 11:20 AM) [facility] LakeASLAN Pharmaceuticals LAB [id number] 15:35:00 Test Item Value Reference Range Interpretation Comments Lactase Lvl (test code = Lactase Lvl) 2.0 [facility] LakeApplication [facility]UNC [facility] [id number] 15:35:00 Test Item Value Reference Range Interpretation Comments Sucrase Lvl (test code = Sucrase Lvl) 38.6 [facility] Lake[facility]UNC [facility] [id number] 15:35:00 Test Item Value Reference Range Interpretation Comments Maltase Lvl (test code = Maltase Lvl) 177.2 [facility] LakeASL[facility] LAB [id number] 15:35:00 Test Item Value Reference Range Interpretation Comments Palatinase Lvl (test code = Palatinase 13.8 Lvl) [facility] LakeLyybvcfNVRYUKWYXOKG3910-41-11 13:21:00 Test Item Value Reference Range Interpretation Comments Potassium WB (test code = Potassium WB) 5.1 3.5-5.1 [facility] HospitalKuycvkkMBQJICHUHHEIK5429-60-44 13:21:00 Test Item Value Reference Range Interpretation Comments S Preg (test code = S Negative 8*NA*(01/21/21 Preg) 8:21 AM) [facility] HospitalWihaoogKPBIADEEZV4949-25-25 11:19:00 Test Item Value Reference Range Interpretation Comments Coronavirus (COVID-19) Not Detected (01/21/21 EMANUEL (test code = 6:19 AM) Coronavirus (COVID-19) EMANUEL) [facility] [id number] 16:39:05 Test Item Value Reference Range Interpretation Comments Glucose POC (test 183 mg/dL 70-115 H If you con retail grocer your code = Glucose POC) patient critically ill, the Merlin-Accu Check Infrom II meter should not be used for Glucose determination. Draw a venous Glucose and send to the main Lab for analysis. Urine [id number] 11:32:13 Test Item Value Reference Range Interpretation [...] Report) Escherichia coli C Urine Added by GL[facility] [id number] 07:52:10 Test Item Value Reference Range Interpretation Comments Glucose POC (test 160 mg/dL 70-115 H If you con retail grocer your code = Glucose POC) patient critically ill, the Merlin-Accu Check Infrom II meter should not be used for Glucose determination. Draw a venous Glucose and send to the main Lab for analysis. POC [id number] 19:32:05 Test Item Value Reference Range Interpretation Comments Glucose POC (test 184 mg/dL 70-115 H If you con retail grocer your code = Glucose POC) patient critically ill, the Merlin-Accu Check Infrom II meter should not be used for Glucose determination. Draw a venous Glucose and send to the main Lab for analysis. POC [id number] 17:16:35 Test Item Value Reference Range Interpretation Comments Glucose POC (test 281 mg/dL 70-115 H Notify RN or MDIf you code = Glucose POC) consider your patient critically ill, the Merlin-Accu Chec k Infrom II meter should not be used for Glucos e determination. Draw a venous Glucose and send to the main Lab for analysis. POC [id number] 12:00:38 Test Item Value Reference Range Interpretation Comments Glucose POC (test 138 mg/dL 70-115 H Notify RN or MDIf you code = Glucose POC) consider your patient critically ill, the Merlin-Accu Chec k Infrom II meter should not be used for Glucos e determination. Draw a venous Glucose and send to the main Lab for analysis. POC [id number] 07:41:32 Test Item Value Reference Range Interpretation Comments Glucose POC (test 206 mg/dL 70-115 H Notify RN or MDIf you code = Glucose POC) consider your patient critically ill, the Merlin-Accu Chec k Infrom II meter should not be used for Glucos e determination. Draw a venous Glucose and send to the main Lab for analysis. Urinalysis [id number] 21:07:21 Test Item Value Reference Range Interpretation Comments UA WBC (test code = UA WBC) TNTC 0-5 A UA RBC (test code = UA RBC) 6-10 0-5 A UA Bacteria (test code = UA Bacteria) Profuse A UA Squam Epithelial (test code = UA 6-10 A Squam Epithelial) Urinalysis with Culture, if [id number] 20:35:14 Test Item Value Reference Range Interpretation [...] Micro Indicated Not Indicated A Ind?) POC [id number] 19:06:34 Test Item Value Reference Range Interpretation Comments Glucose POC (test 207 mg/dL 70-115 H If you con retail grocer your code = Glucose POC) patient critically ill, the Merlin-Accu Check Infrom II meter should not be used for Glucose determination. Draw a venous Glucose and send to the main Lab for analysis. POC [id number] 17:12:03 Test Item Value Reference Range Interpretation Comments Glucose POC (test 173 mg/dL 70-115 H Notify RN or MDIf you code = Glucose POC) consider your patient critically ill, the Merlin-Accu Chec k Infrom II meter should not be used for Glucos e determination. Draw a venous Glucose and send to the main Lab for analysis. POC [id number] 11:58:01 Test Item Value Reference Range Interpretation Comments Glucose POC (test 289 mg/dL 70-115 H Notify RN or MDIf you code = Glucose POC) consider your patient critically ill, the Merlin-Accu Chec k Infrom II meter should not be used for Glucos e determination. Draw a venous Glucose and send to the main Lab for analysis. POC [id number] 08:19:37 Test Item Value Reference Range Interpretation Comments Glucose POC (test 201 mg/dL 70-115 H Notify RN or MDIf you code = Glucose POC) consider your patient critically ill, the Merlin-Accu Chec k Infrom II meter should not be used for Glucos e determination. Draw a venous Glucose and send to the main Lab for analysis. POC [id number] 20:37:35 Test Item Value Reference Range Interpretation Comments Glucose POC (test 272 mg/dL 70-115 H If you con retail grocer your code = Glucose POC) patient critically ill, the Merlin-Accu Check Infrom II meter should not be used for Glucose determination. Draw a venous Glucose and send to the main Lab for analysis. POC [id number] 17:23:05 Test Item Value Reference Range Interpretation Comments Glucose POC (test 229 mg/dL 70-115 H If you con retail grocer your code = Glucose POC) patient critically ill, the Merlin-Accu Check Infrom II meter should not be used for Glucose determination. Draw a venous Glucose and send to the main Lab for analysis. POC [id number] 12:01:01 Test Item Value Reference Range Interpretation Comments Glucose POC (test 155 mg/dL 70-115 H If you con retail grocer your code = Glucose POC) patient critically ill, the Merlin-Accu Check Infrom II meter should not be used for Glucose determination. Draw a venous Glucose and send to the main Lab for analysis. POC [id number] 08:07:32 Test Item Value Reference Range Interpretation Comments Glucose POC (test 248 mg/dL 70-115 H If you con retail grocer your code = Glucose POC) patient critically ill, the Merlin-Accu Check Infrom II meter should not be used for Glucose determination. Draw a venous Glucose and send to the main Lab for analysis. IG [id number] 06:50:39 Test Item Value Reference Range Interpretation Comments IG (test code = IG) 0.7 % 0.0-5.0 IG Abs (test code = IG Abs) 0 x10 N Complete Blood Count with [id number] 06:50:38 Test Item Value Reference Range Interpretation [...] code = IPF) 0 % N Automated [id number] 06:50:38 Test Item Value Reference Range Interpretation Comments Neutro Auto (test code = Neutro 50.3 % 36.0-70.0 Auto) Lymph Auto (test code = Lymph Auto) 38.6 % 12.0-44.0 [place] Auto (test code = [place] Auto) 7.3 % 0.0-11.0 Eos, Auto (test code = Eos, Auto) 2.4 % 0.0-7.0 Basophil Auto (test code = Basophil 0.7 % 0.0-2.0 Auto) Neutro Absolute (test code = Neutro 3.0 x10 1.6-7.4 Absolute) Lymph Absolute (test code = Lymph 2.28 x10 .50-4.60 Absolute) [place] Absolute (test code = [place] .43 x10 .00-1.20 Absolute) Eos Absolute (test code = Eos 0.14 x10 0.00-0.74 Absolute) Baso Absolute (test code = Baso 0.04 x10 0.00-0.21 Absolute) Basic Metabolic [id number] 05:38:20 Test Item Value Reference Range Interpretation [...] = Lipemia) 0 mg/dL 8-11 Basic Metabolic [id number] 05:38:20 Test Item Value Reference Range Interpretation [...] = 0 mg/dL 8-11 Lipemia) Basic Metabolic [id number] 05:38:20 Test Item Value Reference Range Interpretation [...] ag e have not been validated by [facility] MDRD study and should be interpreted [...] ag e have not been validated by [facility] MDRD study and should be interpreted [...] code = 0 mg/dL 8-11 Lipemia) POC [id number] 20:28:33 Test Item Value Reference Range Interpretation Comments Glucose POC (test 169 mg/dL 70-115 H If you con retail grocer your code = Glucose POC) patient critically ill, the Merlin-Accu Check Infrom II meter should not be used for Glucose determination. Draw a venous Glucose and send to the main Lab for analysis. POC [id number] 16:39:30 Test Item Value Reference Range Interpretation Comments Glucose POC (test 103 mg/dL 70-115 If you con retail grocer your code = Glucose POC) patient critically ill, the Merlin-Accu Check Infrom II meter should not be used for Glucose determination. Draw a venous Glucose and send to the main Lab for analysis. RPR [id number] 12:08:56 Test Item Value Reference Range Interpretation Comments RPR Qual (test code = RPR Qual) Non-Reactive Non-Reactive Reactive Control (test code = Reactive Reactive Control) Weak Reactive Control (test Weak Reactive code = Weak Reactive Control) Non-Reactive Control (test code Non-Reactive = Non-Reactive Control) Lot # (test code = Lot #) [id number] N Expiration Dt (test code = 03-20-2021 N Expiration Dt) POC [id number] 11:52:31 Test Item Value Reference Range Interpretation Comments Glucose POC (test 250 mg/dL 70-115 H If you con retail grocer your code = Glucose POC) patient critically ill, the Merlin-Accu Check Infrom II meter should not be used for Glucose determination. Draw a venous Glucose and send to the main Lab for analysis. POC [id number] 07:55:29 Test Item Value Reference Range Interpretation Comments Glucose POC (test 205 mg/dL 70-115 H If you con retail grocer your code = Glucose POC) patient critically ill, the Merlin-Accu Check Infrom II meter should not be used for Glucose determination. Draw a venous Glucose and send to the main Lab for analysis. Lipid [id number] 05:46:04 Test Item Value Reference Range Interpretation [...] LDL/HDL Ratio=L DL Calc/HDL Chol Thyroid Stimulating [id number] 05:46:04 Test Item Value Reference Range Interpretation Comments TSH (test code = TSH) 3.274 mcIU/mL 0.550-4.780 Hemoglobin [id number] 05:41:08 Test Item Value Reference Range Interpretation Comments Hemoglobin A1c (test code 7.6 % 4.0-5.8 H Di abetic >=6.5 = Hemoglobin A1c) %Prediabet es 5.7-6.4 %Normal <5.7 % Hepatitis B Surface [id number] 21:19:36 Test Item Value Reference Range Interpretation Comments Hep Bs Ag (test code = Hep Bs Non-Reactive Non-Reactive Ag) Novel Coronavirus SARS-CoV-2, [id number] 11:16:16 Test Item Value Reference Range Interpretation [...] Emergency Use Authorization." Novel Coronavirus (COVID-19), EMANUEL [id number] 11:11:24TNPTest not sent and performed at [facility].Rapid was perfomed in Microbiology.Wrong covid test was ord ered.Urine DOA [id number] 00:17:49 Test Item Value Reference Range Interpretation [...] Propoxyphene Confirmation wi thin 7 days. Alcohol [id number] 00:17:29 Test Item Value Reference Range Interpretation Comments Ethanol Level 9.0 mg/dL N The pharmacolo gical (test code = response to blo od alcohol Ethanol Level) levels may va ry from individual to i ndividual. The fatal omkar ntration has been report ed to be >400 mg/dl. Comprehensive Metabolic [id number] 00:17:28 Test Item Value Reference Range Interpretation [...] = Lipemia) 0 g/dL 1-2 Comprehensive Metabolic [id number] 00:17:28 Test Item Value Reference Range Interpretation [...] = 0 g/dL 1-2 Lipemia) Comprehensive Metabolic [id number] 00:17:28 Test Item Value Reference Range Interpretation [...] g/dL 1-2 Lipemia) Complete Blood Count with [id number] 23:26:28 Test Item Value Reference Range Interpretation [...] code = IPF) 0 % N Automated Amcjoovwpuie3141-07-03 23:26:28 Test Item Value Reference Range Interpretation Comments Neutro Auto (test code = Neutro 67.1 % 36.0-70.0 Auto) Lymph Auto (test code = Lymph Auto) 23.3 % 12.0-44.0 [place] Auto (test code = [place] Auto) 5.8 % 0.0-11.0 Eos, Auto (test code = Eos, Auto) 2.3 % 0.0-7.0 Basophil Auto (test code = Basophil 0.8 % 0.0-2.0 Auto) Neutro Absolute (test code = Neutro 6.0 x10 1.6-7.4 Absolute) Lymph Absolute (test code = Lymph 2.10 x10 .50-4.60 Absolute) [place] Absolute (test code = [place] .52 x10 .00-1.20 Absolute) Eos Absolute (test code = Eos 0.21 x10 0.00-0.74 Absolute) Baso Absolute (test code = Baso 0.07 x10 0.00-0.21 Absolute) IG [id number] 23:26:28 Test Item Value Reference Range Interpretation Comments IG (test code = IG) 0.7 % 0.0-5.0 IG Abs (test code = IG Abs) 0 x10 N HERPES VIRUS ANTIBODY, [id number] 21:46:00 Test Item Value Reference Range Interpretation Comments HERPES VIRUS IGM (BEAKER) Negative SE E ATTACHMENT (test code = 1808) BLOOD [id number] 06:00:00 Test Item Value Reference Range Interpretation Comments CULTURE (BEAKER) (test No growth in 5 days code = 1095) BLOOD [id number] 06:00:00 Test Item Value Reference Range Interpretation Comments CULTURE (BEAKER) (test No growth in 5 days code = 1095) POCT-GLUCOSE [id number] 12:11:00 Test Item Value Reference Range Interpretation Comments POC-GLUCOSE METER 154 mg/dL 70-110 H TESTED AT [place] [address] (BEAKER) (test code = [place] 1538) [address] POCT-GLUCOSE [id number] 07:53:00 Test Item Value Reference Range Interpretation Comments POC-GLUCOSE METER 87 mg/dL 70-110 TESTED AT [facility] [address] (BEAKER) (test code = [place] [address] 1538) POCT-GLUCOSE [id number] 06:49:00 Test Item Value Reference Range Interpretation Comments POC-GLUCOSE METER 79 mg/dL 70-110 TESTED AT [facility] [address] (BEAKER) (test code = [facility] [place] [address] 1538) COMPREHENSIVE METABOLIC [id number] 06:15:00 Test Item Value Reference Range Interpretation [...] S NOT APPLICABLE FOR DIALYSIS PATIEN TS. [id number] 06:11:00 Test Item Value Reference Range Interpretation Comments MAGNESIUM (BEAKER) (test code = 2.1 mg/dL 1.6-2.6 627) HEPATIC FUNCTION [id number] 06:11:00 Test Item Value Reference Range Interpretation [...] code = 513 U/L 6-55 H 347) [id number] 05:30:00 Test Item Value Reference Range Interpretation Comments FIBRINOGEN LEVEL (BEAKER) (test 368 mg/dl 225-434 code = 658) [id number] 05:30:00 Test Item Value Reference Range Interpretation Comments PARTIAL THROMBOPLASTIN TIME 42.2 seconds 22.5-36.0 H (BEAKER) (test code = 760) PROTHROMBIN [id number] 05:29:00 Test Item Value Reference Range Interpretation Comments PROTIME (BEAKER) (test code = 14.8 seconds 11.7-14.7 H 759) INR (BEAKER) (test code = 370) 1.2 <=5.9 RECOMMENDED COUMADIN/WARFARIN INR THERAPY RANGESSTANDARD DOSE: 2.0 - 3.0 Includes: PROPHYLAXIS for venous thrombosis, systemic embolization; TREATMENT for venous thrombosis and/or pulmonary embolus.HIGH RISK: Target INR is 2.5-3.5 for patients with mechanical heart valves.POCT-GLUCOSE [id number] 21:09:00 Test Item Value Reference Range Interpretation Comments POC-GLUCOSE METER 178 mg/dL 70-110 H TESTED AT [facility] [address] ([facility]) (test code = [place] 1538) [id number] POCT-GLUCOSE [id number] 17:18:00 Test Item Value Reference Range Interpretation Comments POC-GLUCOSE METER 178 mg/dL 70-110 H TESTED AT [facility] [address] ([facility]) (test code = [facility] 1538) [address] POCT-GLUCOSE [id number] 13:48:00 Test Item Value Reference Range Interpretation Comments POC-GLUCOSE METER 150 mg/dL 70-110 H TESTED AT [facility] [address] ([facility]) (test code = [facility] 1538) [address] FACTOR 5 ACTIVITY (BLEEDING RISK)2017-01-06 10:04:00 Test Item Value Reference Range Interpretation Comments FACTOR V ACTIVITY ([facility]) (test code 90.0 % 60.0-150.0 = 665) Effective 10/24/2013: Reference Range Change-Adult onlyNew: 60.0-150.0 Previous: 50.0-150.0CYTOMEGALOVIRUS ANTIBODY, [id number] 09:42:00 Test Item Value Reference Range Interpretation Comments CYTOMEGALOVIRUS IGM ANTIBODY Negative ([facility]) (test code = 816) HERPES VIRUS ANTIBODY, [id number] 08:59:00 Test Item Value Reference Range Interpretation Comments 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[facility]) (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 G 1807) CYTOMEGALOVIRUS ANTIBODY, [id number] 08:59:00 Test Item Value Reference Range Interpretation Comments CYTOMEGALOVIRUS IGG ANTIBODY Positive ([facility]) (test code = 790) EBV-VCA ANTIBODY, [id number] 08:59:00 Test Item Value Reference Range Interpretation Comments JASE-WALL VCA IGG ([facility]) (test Positive code = 983) EBV-VCA ANTIBODY, [id number] 08:59:00 Test Item Value Reference Range Interpretation Comments JASE-WALL VCA IGM ([facility]) (test Negative code = 984) POCT-GLUCOSE [id number] 07:59:00 Test Item Value Reference Range Interpretation Comments POC-GLUCOSE METER 81 mg/dL 70-110 TESTED AT [facility] [address] ([facility]) (test code = [facility] [address] 1538) COMPREHENSIVE METABOLIC [id number] 06:23:00 Test Item Value Reference Range Interpretation Comments TOTAL PROTEIN 5.3 gm/dL 6.0-8.3 L ([facility]) (test code = 770) ALBUMIN ([facility]) 2.4 g/dL 3.5-5.0 L (test code = [...] S NOT APPLICABLE FOR DIALYSIS PATIEN TS. [id number] 06:17:00 Test Item Value Reference Range Interpretation Comments MAGNESIUM (BEAKER) (test code = 1.8 mg/dL 1.6-2.6 627) HEPATIC FUNCTION [id number] 06:17:00 Test Item Value Reference Range Interpretation [...] 346) AST (SGOT) (AKER) (test code = 364 U/L 5-34 H 353) ALT (SGPT) ([facility]) (test code = 779 U/L 6-55 H 347) [id number] 06:00:00 Test Item Value Reference Range Interpretation Comments FIBRINOGEN LEVEL ([facility]) (test 390 mg/dl 225-434 code = 658) [id number] 06:00:00 Test Item Value Reference Range Interpretation Comments PARTIAL THROMBOPLASTIN TIME 40.2 seconds 22.5-36.0 H ([facility]) (test code = 760) PROTHROMBIN [id number] 05:59:00 Test Item Value Reference Range Interpretation Comments PROTIME ([facility]) (test code = 14.6 seconds 11.7-14.7 759) INR ([facility]) (test code = 370) 1.2 <=5.9 RECOMMENDED COUMADIN/WARFARIN INR THERAPY RANGESSTANDARD DOSE: 2.0 - 3.0 Includes: PROPHYLAXIS for venous thrombosis, systemic embolization; TREATMENT for venous thrombosis and/or pulmonary embolus.HIGH RISK: Target INR is 2.5-3.5 for patients with mechanical heart valves.POCT-GLUCOSE [id number] 21:46:00 Test Item Value Reference Range Interpretation Comments POC-GLUCOSE METER 153 mg/dL 70-110 H TESTED AT [place] [address] ([facility]) (test code = [facility] 1538) [address] POCT-GLUCOSE [id number] 18:47:00 Test Item Value Reference Range Interpretation Comments POC-GLUCOSE METER 181 mg/dL 70-110 H TESTED AT [place] [address] ([facility]) (test code = [place] 1538) [address] POCT-GLUCOSE [id number] 12:40:00 Test Item Value Reference Range Interpretation Comments POC-GLUCOSE METER 178 mg/dL 70-110 H TESTED AT [place] [address] ([facility]) (test code = [facility] 1538) [address] POCT-GLUCOSE [id number] 07:51:00 Test Item Value Reference Range Interpretation Comments POC-GLUCOSE METER 166 mg/dL 70-110 H TESTED AT [facility] [address] (BEAKER) (test code = [place] 1538) [address] COMPREHENSIVE METABOLIC [id number] 03:26:00 Test Item Value Reference Range Interpretation [...] S NOT APPLICABLE FOR DIALYSIS PATIEN TS. [id number] 03:22:00 Test Item Value Reference Range Interpretation Comments MAGNESIUM (BEAKER) (test code = 1.4 mg/dL 1.6-2.6 L 627) HEPATIC FUNCTION [id number] 03:22:00 Test Item Value Reference Range Interpretation [...] code = 1009 U/L 6-55 H 347) [id number] 03:12:00 Test Item Value Reference Range Interpretation Comments AMMONIA (BEAKER) (test code = 348) 29 mol/L 18-72 [id number] 03:10:00 Test Item Value Reference Range Interpretation Comments PARTIAL THROMBOPLASTIN TIME 42.3 seconds 22.5-36.0 H (BEAKER) (test code = 760) PROTHROMBIN [id number] 03:09:00 Test Item Value Reference Range Interpretation Comments PROTIME (BEAKER) (test code = 16.4 seconds 11.7-14.7 H 759) INR (BEAKER) (test code = 370) 1.3 <=5.9 RECOMMENDED COUMADIN/WARFARIN INR THERAPY RANGESSTANDARD DOSE: 2.0 - 3.0 Includes: PROPHYLAXIS for venous thrombosis, systemic embolization; TREATMENT for venous thrombosis and/or pulmonary embolus.HIGH RISK: Target INR is 2.5-3.5 for patients with mechanical heart valves.[id number] 03:09:00 Test Item Value Reference Range Interpretation Comments FIBRINOGEN LEVEL (BEAKER) (test 413 mg/dl 225-434 code = 658) CBC W/PLT COUNT & AUTO [id number] 03:09:00 Test Item Value Reference Range Interpretation [...] L 0.00-0.20 (test code = 417) 0.00POCT-GLUCOSE [id number] 22:33:00 Test Item Value Reference Range Interpretation Comments POC-GLUCOSE METER 230 mg/dL 70-110 H TESTED AT [facility] [address] (BEAKER) (test code = [place] 1538) [address] POCT-GLUCOSE [id number] 18:17:00 Test Item Value Reference Range Interpretation Comments POC-GLUCOSE METER 222 mg/dL 70-110 H TESTED AT [facility] [address] (BEAKER) (test code = [place] 1538) [address] COMPREHENSIVE METABOLIC [id number] 16:59:00 Test Item Value Reference Range Interpretation [...] PATIEN TS. PERIPHERAL BLOOD SMEAR - PATHOLOGIST [id number] 15:30:00 Test Item Value Reference Range Interpretation Comments RBC MORPHOLOGY Polychromasia (BEAKER) (test code = 2846) RBC MORPHOLOGY Anisocytosis (BEAKER) (test code = 76082) PERIPHERAL SMR REVIEW Cell counts confirmed (BEAKER) (test code = 9418) [id number] Josefina Lara M.D. ([facility]) (test code = (electronic signature) 2454) PROTHROMBIN [id number] 15:12:00 Test Item Value Reference Range Interpretation Comments PROTIME (MADIE) (test code = 16.6 seconds 11.7-14.7 H 759) INR ([facility]) (test code = 370) 1.4 <=5.9 RECOMMENDED COUMADIN/WARFARIN INR THERAPY RANGESSTANDARD DOSE: 2.0 - 3.0 Includes: PROPHYLAXIS for venous thrombosis, systemic embolization; TREATMENT for venous thrombosis and/or pulmonary embolus.HIGH RISK: Target INR is 2.5-3.5 for patients with mechanical heart valves.ANTI-NUCLEAR ANTIBODY (IVETTE)2017-01-04 14:32:00 Test Item Value Reference Range Interpretation Comments ANTI-NUCLEAR ANTIBODY (IVETTE) ([facility]) Negative Negative (test code = 418) POCT-GLUCOSE [id number] 12:47:00 Test Item Value Reference Range Interpretation Comments POC-GLUCOSE METER 212 mg/dL 70-110 H TESTED AT [facility] [address] ([facility]) (test code = [facility] 1538) [address] [id number] 12:34:00 Test Item Value Reference Range Interpretation Comments RPR SCREEN ([facility]) (test code = Nonreactive Nonreactive 420) CLOSTRIDIUM DIFFICILE TOXIN [id number] 10:12:00 Test Item Value Reference Range Interpretation Comments CLOSTRIDIUM DIFFICILE TOXIN, PCR Not Detected Not Detected ([facility]) (test code = 1525) This qualitative real-time [...] Reference Range Change-Adult onlyNew: 60.0-150.0 Previous: 50.0-150.0POCT-GLUCOSE [id number] 06:40:00 Test Item Value Reference Range Interpretation Comments POC-GLUCOSE METER 167 mg/dL 70-110 H TESTED AT [facility] [address] ([facility]) (test code = [place] 1538) [address] COMPREHENSIVE METABOLIC [id number] 04:08:00 Test Item Value Reference Range Interpretation [...] ESTIM ATED GFR. Specimen slightly ictericHEPATIC FUNCTION [id number] 04:06:00 Test Item Value Reference Range Interpretation [...] 1091 U/L 6-55 H 347) Specimen slightly [id number] 04:01:00 Test Item Value Reference Range Interpretation Comments FIBRINOGEN LEVEL (BEAKER) (test 379 mg/dl 225-434 code = 658) [id number] 04:01:00 Test Item Value Reference Range Interpretation Comments PARTIAL THROMBOPLASTIN TIME 40.7 seconds 22.5-36.0 H (BEAKER) (test code = 760) PROTHROMBIN [id number] 04:00:00 Test Item Value Reference Range Interpretation [...] mechanical heart valves.CBC W/PLT COUNT & AUTO [id number] 03:56:00 Test Item Value Reference Range Interpretation [...] L 0.00-0.20 (test code = 417) 0.00POCT-GLUCOSE [id number] 00:19:00 Test Item Value Reference Range Interpretation Comments POC-GLUCOSE METER 159 mg/dL 70-110 H TESTED AT [facility] [address] ([facility]) (test code = [facility] [place] 1538) [address] POCT-GLUCOSE [id number] 18:56:00 Test Item Value Reference Range Interpretation Comments POC-GLUCOSE METER 192 mg/dL 70-110 H TESTED AT [place] [address] ([facility]) (test code = [facility] 1538) [address] COMPREHENSIVE METABOLIC [id number] 16:55:00 Test Item Value Reference Range Interpretation [...] CALCULATE ESTIM ATED GFR. Specimen slightly ictericPROTHROMBIN [id number] 16:37:00 Test Item Value Reference Range Interpretation Comments PROTIME (BEAKER) (test code = 20.9 seconds 11.7-14.7 H 759) INR (BEAKER) (test code = 370) 1.8 <=5.9 RECOMMENDED COUMADIN/WARFARIN INR THERAPY RANGESSTANDARD DOSE: 2.0 - 3.0 Includes: PROPHYLAXIS for venous thrombosis, systemic embolization; TREATMENT for venous thrombosis and/or pulmonary embolus.HIGH RISK: Target INR is 2.5-3.5 for patients with mechanical heart valves.HEPATITIS B SURFACE [id number] 14:05:00 Test Item Value Reference Range Interpretation Comments HEPATITIS B SURFACE ANTIBODY < mIU/mL <8.0 (BEAKER) (test code = 647) HEPATITIS B CORE ANTIBODY, [id number] 13:43:00 Test Item Value Reference Range Interpretation Comments HEPATITIS B CORE TOTAL ANTIBODY Nonreactive Nonreactive (BEAKER) (test code = 497) BLOOD GAS, [id number] 13:35:00 Test Item Value Reference Range Interpretation [...] code = 1819) 28.0 % URINALYSIS W/ [id number] 13:16:00 Test Item Value Reference Range Interpretation [...] 1584) SOURCE(BEAKER) (test code = Urine, [place] 2795) VITAMIN D, [id number] 13:14:00 Test Item Value Reference Range Interpretation Comments VITAMIN D 25-OH (BEAKER) (test code = < ng/mL 13.0-47.8 L 2764) ALPHA FETOPROTEIN (AFP), TUMOR [id number] 13:06:00 Test Item Value Reference Range Interpretation Comments ALPHA-FETOPROTEIN (BEAKER) (test code < ng/mL <10.0 = 1094) Effective 05/08/2014: Reference Range ChangeNew: <10.0 Previous: 0.0-8.0 HEMOGLOBIN [id number] 13:05:00 Test Item Value Reference Range Interpretation Comments HEMOGLOBIN A1C (BEAKER) (test code = 7.6 % 4.3-6.1 H 368) CARCINOEMBRYONIC ANTIGEN (CEA)2017-01-03 12:59:00 Test Item Value Reference Range Interpretation Comments CARCINOEMBRYONIC ANTIGEN (BEAKER) 2.0 ng/mL 0.0-5.0 (test code = 685) [id number] 12:59:00 Test Item Value Reference Range Interpretation Comments FERRITIN (BEAKER) (test code = 1841 ng/mL 5-275 H 361) Effective 05/08/2014: Reference Range ChangeNew: Male 5-275 Previous: Male 22- 322 Female 5-275 Female [id number] 12:58:00 Test Item Value Reference Range Interpretation Comments T4 TOTAL (BEAKER) (test code = 895) 4.5 ug/dL 4.9-11.7 L [id number] 12:58:00 Test Item Value Reference Range Interpretation Comments THYROID STIMULATING HORMONE 1.79 uIU/mL 0.35-4.94 (BEAKER) (test code = 772) [id number] 12:58:00 Test Item Value Reference Range Interpretation Comments T3 TOTAL (BEAKER) (test code = 656) 34 ng/dL 48-159 L Effective 05/08/2014: Reference Range ChangeNew: 48-159 Previous: 60-181CALCIUM, [id number] 12:47:00 Test Item Value Reference Range Interpretation Comments CALCIUM IONIZED (BEAKER) (test 1.05 mmol/L 1.12-1.27 L code = 698) PH, BLOOD (BEAKER) (test code = 7.43 1810) [id number] 12:42:00 Test Item Value Reference Range Interpretation [...] % 20-55 (test code = 2590) URIC [id number] 12:40:00 Test Item Value Reference Range Interpretation Comments URIC ACID (BEAKER) (test code = 16.0 mg/dL 2.6-7.2 H 773) Specimen slightly ictericLIPID [id number] 12:40:00 Test Item Value Reference Range Interpretation [...] 160-189 Very High >=190 Specimen slightly ictericBILIRUBIN, [id number] 12:40:00 Test Item Value Reference Range Interpretation Comments BILIRUBIN DIRECT (BEAKER) (test 2.4 mg/dL 0.1-0.5 H code = 706) GAMMA GLUTAMYL TRANSFERASE (GGT)2017-01-03 12:40:00 Test Item Value Reference Range Interpretation Comments GAMMA GLUTAMYL TRANSFERASE (BEAKER) 53 U/L 9-64 (test code = 364) Specimen slightly [id number] 12:39:00 Test Item Value Reference Range Interpretation Comments ETHANOL (BEAKER) (test code = 400) < mg/dL <=10 SCREEN, [id number] 12:36:00 Test Item Value Reference Range Interpretation Comments TEST URINE (BEAKER) (test Negative code = 583) POCT-GLUCOSE [id number] 12:34:00 Test Item Value Reference Range Interpretation Comments POC-GLUCOSE METER 189 mg/dL 70-110 H TESTED AT [facility] [address] (BEAKER) (test code = [place] 1538) [address] HIV-1 ANTIGEN WITH HIV-1/2 [id number] 11:58:00 Test Item Value Reference Range Interpretation Comments HIV-1 ANTIGEN WITH HIV 1\\T\\2 Nonreactive Nonreactive ANTIBODY (2) (BEAKER) (test code = 2586) TROPONIN [id number] 09:44:00 Test Item Value Reference Range Interpretation [...] 0.0-4.9CK-MB Reference Range:<6.7 Normal6.7-10.0 Borderline>10.0 Abnormal ACETAMINOPHEN [id number] 08:31:00 Test Item Value Reference Range Interpretation Comments ACETAMINOPHEN LEVEL (BEAKER) (test < ug/mL 10.0-30.0 L code = 344) TROPONIN [id number] 05:53:00 Test Item Value Reference Range Interpretation [...] acute neurological disease, and persistent tachyarrhythmia.BASIC METABOLIC [id number] 05:53:00 Test Item Value Reference Range Interpretation [...] TO CALCULA TE ESTIMATED GFR. Specimen slightly yowuafnHZBGFCPAJI4894-20-25 05:52:00 Test Item Value Reference Range Interpretation Comments PHOSPHORUS (BEAKER) (test code = 5.7 mg/dL 2.3-4.7 H 604) HEPATIC FUNCTION [id number] 05:52:00 Test Item Value Reference Range Interpretation [...] Specimen slightly ictericCREATINE KINASE (CK), TOTAL AND [id number] 05:52:00 Test Item Value Reference Range Interpretation Comments CREATINE KINASE TOTAL (BEAKER) 341 U/L 29-200 H (test code = 380) CREATINE KINASE-MB (BEAKER) (test 5.4 ng/mL 0.0-6.6 code = 750) CREATINE KINASE-MB INDEX (BEAKER) 1.6 % (test code = 395) Effective 05/08/2014: CK-MB Reference Range ChangeNew: 0.0-6.6 Previous: 0.0-4.9CK-MB Reference Range:<6.7 Normal6.7-10.0 Borderline>10.0 Abnormal CBC W/PLT COUNT & AUTO [id number] 05:48:00 Test Item Value Reference Range Interpretation [...] K/ L 0.00-0.20 (test code = 417) 0.33LMUONDAQWR1372-85-84 05:09:00 Test Item Value Reference Range Interpretation Comments FIBRINOGEN LEVEL (BEAKER) (test 427 mg/dl 225-434 code = 658) [id number] 05:09:00 Test Item Value Reference Range Interpretation Comments PARTIAL THROMBOPLASTIN TIME 36.2 seconds 22.5-36.0 H (BEAKER) (test code = 760) PROTHROMBIN TIME/[id number] 05:08:00 Test Item Value Reference Range Interpretation Comments PROTIME (BEAKER) (test code = 22.8 seconds 11.7-14.7 H 759) INR (BEAKER) (test code = 370) 2.0 <=5.9 RECOMMENDED COUMADIN/WARFARIN INR THERAPY RANGESSTANDARD DOSE: 2.0 - 3.0 Includes: PROPHYLAXIS for venous thrombosis, systemic embolization; TREATMENT for venous thrombosis and/or pulmonary embolus.HIGH RISK: Target INR is 2.5-3.5 for patients with mechanical heart valves.HEPATITIS PANEL, [id number] 03:40:00 Test Item Value Reference Range Interpretation Comments HEPATITIS A IGM ANTIBODY (BEAKER) Nonreactive Nonreactive (test code = 498) HEPATITIS B CORE IGM ANTIBODY Nonreactive Nonreactive (BEAKER) (test code = 645) HEPATITIS C ANTIBODY (BEAKER) Nonreactive Nonreactive (test code = 367) HEPATITIS B SURFACE ANTIGEN (2) Nonreactive Nonreactive (BEAKER) (test code = 2585) CREATININE, RANDOM [id number] 03:18:00 Test Item Value Reference Range Interpretation Comments CREATININE URINE (BEAKER) (test 118.7 mg/dL code = 375) Reference Range: No NormalsSODIUM, RANDOM [id number] 03:18:00 Test Item Value Reference Range Interpretation Comments SODIUM URINE (BEAKER) (test code = 60 meq/L 243) Reference Range: No NormalsUREA NITROGEN, RANDOM [id number] 03:18:00 Test Item Value Reference Range Interpretation Comments UREA NITROGEN URINE (BEAKER) (test 303 mg/dL code = 538) Reference Range: No [id number] 03:07:00 Test Item Value Reference Range Interpretation Comments AMMONIA (BEAKER) (test code = 348) 48 mol/L 18-72 [id number] 02:57:00 Test Item Value Reference Range Interpretation [...] within 95-100% range. URINALYSIS W/ REFLEX URINE [id number] 02:53:00 Test Item Value Reference Range Interpretation [...] = 514) SOURCE(BEAKER) (test code = 2795) [id number] 02:49:00 Test Item Value Reference Range Interpretation Comments PARTIAL THROMBOPLASTIN TIME 39.4 seconds 22.5-36.0 H (BEAKER) (test code = 760) PROTHROMBIN TIME/[id number] 02:48:00 Test Item Value Reference Range Interpretation Comments PROTIME (BEAKER) (test code = 22.0 seconds 11.7-14.7 H 759) INR (BEAKER) (test code = 370) 1.9 <=5.9 RECOMMENDED COUMADIN/WARFARIN INR THERAPY RANGESSTANDARD DOSE: 2.0 - 3.0 Includes: PROPHYLAXIS for venous thrombosis, systemic embolization; TREATMENT for venous thrombosis and/or pulmonary embolus.HIGH RISK: Target INR is 2.5-3.5 for patients with mechanical heart valves.[id number] 02:48:00 Test Item Value Reference Range Interpretation Comments FIBRINOGEN LEVEL (BEAKER) (test 421 mg/dl 225-434 code = 658) BLOOD GAS, [id number] 02:43:00 Test Item Value Reference Range Interpretation [...] 21.0 % CBC W/PLT COUNT & AUTO [id number] 02:43:00 Test Item Value Reference Range Interpretation [...] code = 417) 0.00LACTIC ACID, VENOUS, WHOLE [id number] 02:35:00 Test Item Value Reference Range Interpretation Comments LACTATE BLOOD VENOUS (2) (BEAKER) 0.8 mmol/L 0.5-2.2 (test code = 2872) Effective 10/23/2015: Units/Reference Range ChangeNew: 0.5-2.2 mmol/L Previous: 5- 20 mg/dLSpecimen slightly ngeazckJBJIGSRKELFS5596-05-52 11:32:00 Test Item Value Reference Range Interpretation Comments AGAP (test code = AGAP) 14.6 10.0-20.0 [facility]NvjtfakPSIPZBGYUWBM7479-55-30 11:32:00 Test Item Value Reference Range Interpretation Comments eGFR (test code = eGFR) 33 [facility] HospitalIrkxnkxFHCCGRMTAUPP9282-21-82 11:32:00 Test Item Value Reference Range Interpretation Comments Calcium Lvl (test code = Calcium Lvl) 8.3 8.5-10.5 [facility] HospitalCgfjkasORJVLMWRTBTB0320-67-47 11:32:00 Test Item Value Reference Range Interpretation Comments Glucose Lvl (test code = Glucose Lvl) 81 70-99 [facility] HospitalUokehesRREWWHDUECIQ3211-79-28 11:32:00 Test Item Value Reference Range Interpretation Comments Creatinine Lvl (test code = Creatinine 1.95 0.50-1.40 Lvl) [facility] HospitalSuzmhpxLHCPVASOUJLS8775-40-84 11:32:00 Test Item Value Reference Range Interpretation Comments BUN (test code = BUN) 55 7-22 [facility] HospitalSravnakSTUQOJXNFQKH3253-45-31 11:32:00 Test Item Value Reference Range Interpretation Comments CO2 (test code = CO2) 19 24-32 [facility] HospitalOeatlauTRBQYHNDJNVL2857-49-88 11:32:00 Test Item Value Reference Range Interpretation Comments Chloride Lvl (test code = Chloride Lvl) 110 95-109 [facility] HospitalOczopaiJRORZKXFGQQJ3441-51-75 11:32:00 Test Item Value Reference Range Interpretation Comments Sodium Lvl (test code = Sodium Lvl) 139 135-145 [facility] HospitalUocwirgHFGQYKXYWJQC3185-12-52 11:32:00 Test Item Value Reference Range Interpretation Comments Potassium Lvl (test code = Potassium 4.6 3.5-5.1 Lvl) [facility]CaxomvtCXCWHXKISU9732-33-31 11:32:00 Test Item Value Reference Range Interpretation Comments Lymphocytes (test code = Lymphocytes) 30.4 20.0-40.0 [facility] CenterJnpdizrLPPMDSBLZU5017-66-88 11:32:00 Test Item Value Reference Range Interpretation Comments Eosinophils (test code = 4.5 See_Comment [A utomated message] The Eosinophils) system which ge nerated this result tra nsmitted reference range : <=4.0. The reference r leo was not used to int erpret this result as normal/abnormal . [facility] CenterIjgetkzWNNUUIXNJL3116-89-34 11:32:00 Test Item Value Reference Range Interpretation Comments Monocytes (test code = Monocytes) 13.7 2.0-12.0 [facility] CenterUnlbhgpBXEMPVOADF0338-24-58 11:32:00 Test Item Value Reference Range Interpretation Comments Segs-Bands # (test code = Segs-Bands #) 2.6 1.5-8.1 [facility] CenterUvbqvscGTDRFDVQCM2298-97-52 11:32:00 Test Item Value Reference Range Interpretation Comments Basophils (test code = 0.7 See_Comment [Aut omated message] The Basophils) system which ge nerated this result tra nsmitted reference range : <=1.0. The reference r leo was not used to int erpret this result as normal/abnormal . [facility] CenterYfeagdeUSAZYFCTMX3887-09-58 11:32:00 Test Item Value Reference Range Interpretation Comments Monocytes # (test code 0.7 See_Comment [Aut omated message] The = Monocytes #) system which generated this result tra nsmitted reference range : <=0.8. The reference r leo was not used to int erpret this result as normal/abnormal . [facility] CenterCvcmhatNNXBTAVGJN4331-93-87 11:32:00 Test Item Value Reference Range Interpretation Comments Lymphocytes # (test code = Lymphocytes 1.6 1.0-5.5 #) [facility] CenterVojrseaPYQKSWGWHO8646-38-18 11:32:00 Test Item Value Reference Range Interpretation Comments Eosinophils # (test code 0.2 See_Comment [A utomated message] The = Eosinophils #) system [facility] generated this result tra nsmitted reference range : <=0.5. The reference r leo was not used to int erpret this result as normal/abnormal . [facility] CenterApmlmykFNVWRJVRYI7198-15-93 11:32:00 Test Item Value Reference Range Interpretation Comments Segs (test code = Segs) 50.7 45.0-75.0 [facility] CenterJkckpllYAQRVGCYOO1545-48-50 11:32:00 Test Item Value Reference Range Interpretation [...] iron deficiency anemia, and renal disease. CPT: 43013 [facility] CenterXomrstuGDOUGEVGCW4591-32-11 11:32:00 Test Item Value Reference Range Interpretation Comments Hct (test code = Hct) 28.1 36.0-48.0 [facility] CenterCguudhfHSQSABYXFN3353-63-32 11:32:00 Test Item Value Reference Range Interpretation Comments RBC (test code = RBC) 3.39 4.20-5.40 [facility] CenterGvihlafUGLQDGKAGS1057-92-00 11:32:00 Test Item Value Reference Range Interpretation Comments Hgb (test code = Hgb) 8.9 12.0-16.0 [facility] CenterWfxjnjdETVHHCLKTG5148-28-10 11:32:00 Test Item Value Reference Range Interpretation Comments WBC (test code = WBC) 5.1 3.7-10.4 [facility] CenterJwglxkmUDLHHOJKEK6809-72-65 11:32:00 Test Item Value Reference Range Interpretation Comments MPV (test code = MPV) 11.3 7.4-10.4 [facility] CenterCoefsxbCUQVMHPHLR2411-57-18 11:32:00 Test Item Value Reference Range Interpretation Comments Platelet (test code = Platelet) 118 133-450 [facility] CenterIgorveqAIXXTRUZNI9420-45-93 11:32:00 Test Item Value Reference Range Interpretation Comments MCHC (test code = MCHC) 31.8 32.0-36.0 [facility] CenterLcgxzasMVELZTKQEJ0072-13-94 11:32:00 Test Item Value Reference Range Interpretation Comments RDW (test code = RDW) 18.0 11.5-14.5 [facility] CenterGzrcxbnROUKCRAODX6702-37-05 11:32:00 Test Item Value Reference Range Interpretation Comments MCV (test code = MCV) 83.0 80.0-98.0 [facility] CenterAwvcqodCRFBUVYIPT1912-88-97 11:32:00 Test Item Value Reference Range Interpretation Comments MCH (test code = MCH) 26.4 pg 27.0-31.0 [facility]KzpictjBOTLVCTRWI0229-04-16 11:32:00 Test Item Value Reference Range Interpretation Comments C3 Complement (test code = C3 137 88-201 Complement) [facility] HospitalJjtmjebUYZVICQYLR0190-47-09 11:32:00 Test Item Value Reference Range Interpretation Comments HIV. (test code = Negative *NA*(07/30/16 HIV.) 5:32 AM) [facility] CenterMegqmsgZYZSHGWXQL9717-90-08 11:05:00 Test Item Value Reference Range Interpretation [...] iron deficiency anemia, and renal disease. CPT: 27922 [facility] HospitalOgkurhsBIEKUDKUEW1386-07-81 11:05:00 Test Item Value Reference Range Interpretation Comments HIV. (test code = Negative *NA*(07/29/16 HIV.) 5:05 AM) [facility] HospitalOrwuhunMOCOXWXXXR6788-32-41 11:05:00 Test Item Value Reference Range Interpretation Comments C3 Complement (test code = C3 92 88-201 Complement) [facility]2017-02-07 15:50:00 Test Item Value Reference Range Interpretation Comments eGFR (test code = eGFR) 25 [facility]2017-02-07 15:50:00 Test Item Value Reference Range Interpretation Comments BUN (test code = BUN) 55 7-22 [facility]2017-02-07 15:50:00 Test Item Value Reference Range Interpretation Comments CO2 (test code = CO2) 23 24-32 [facility]2017-02-07 15:50:00 Test Item Value Reference Range Interpretation Comments Chloride Lvl (test code = Chloride Lvl) 109 95-109 [facility]2017-02-07 15:50:00 Test Item Value Reference Range Interpretation Comments Glucose Lvl (test code = Glucose Lvl) 101 70-99 [facility]2017-02-07 15:50:00 Test Item Value Reference Range Interpretation Comments Potassium Lvl (test code = Potassium 4.0 3.5-5.1 Lvl) [facility]2017-02-07 15:50:00 Test Item Value Reference Range Interpretation Comments Sodium Lvl (test code = Sodium Lvl) 141 135-145 [facility]2017-02-07 15:50:00 Test Item Value Reference Range Interpretation Comments AGAP (test code = AGAP) 13.0 10.0-20.0 [facility]2017-02-07 15:50:00 Test Item Value Reference Range Interpretation Comments Calcium Lvl (test code = Calcium Lvl) 7.7 8.5-10.5 [facility]2017-02-07 15:50:00 Test Item Value Reference Range Interpretation Comments Creatinine Lvl (test code = Creatinine 2.49 0.50-1.40 Lvl) [facility] CenterDwfkaqrLTMUJHJCOI1126-71-74 15:50:00 Test Item Value Reference Range Interpretation Comments PT (test code = PT) 14.8 s 12.0-14.7 [facility] CenterEbhnhzhMSEZLOHJGH2978-35-29 15:50:00 Test Item Value Reference Range Interpretation Comments PTT (test code = PTT) 40.8 s 22.9-35.8 [facility]RlpgcvxAFFFVMKEYL7631-37-35 15:50:00 Test Item Value Reference Range Interpretation Comments INR (test code = INR) 1.14 0.85-1.17 [facility] HospitalUsqcvrbIQSVSPZIKB1163-77-29 15:50:00 Test Item Value Reference Range Interpretation Comments C3 Complement (test code = C3 94 88-201 Complement) [facility] CenterWedntrbBVVNFTFOTC1419-77-89 10:35:00 Test Item Value Reference Range Interpretation Comments Lymphocytes # (test code = Lymphocytes 1.7 1.0-5.5 #) [facility] CenterCdnaizhUPZFHHXJGS1344-46-11 10:35:00 Test Item Value Reference Range Interpretation Comments Segs-Bands # (test code = Segs-Bands #) 2.7 1.5-8.1 [facility] CenterGckjojpYSRCFHCKSU2137-75-01 10:35:00 Test Item Value Reference Range Interpretation Comments Eosinophils # (test code 0.1 See_Comment [A utomated message] The = Eosinophils #) system [facility] h generated this result tra nsmitted reference range : <=0.5. The reference r leo was not used to int erpret this result as normal/abnormal . [facility] CenterWywptrpHECPSFZHRX7751-47-98 10:35:00 Test Item Value Reference Range Interpretation Comments Monocytes # (test code 0.7 See_Comment [Aut omated message] The = Monocytes #) system which generated this result tra nsmitted reference range : <=0.8. The reference r leo was not used to int erpret this result as normal/abnormal . [facility] CenterBcryoyfZGJTIRNWZK6341-43-96 10:35:00 Test Item Value Reference Range Interpretation Comments Segs (test code = Segs) 51.3 45.0-75.0 [facility] CenterQbxaaqdDSLSDXPLIV5031-47-72 10:35:00 Test Item Value Reference Range Interpretation Comments Lymphocytes (test code = Lymphocytes) 31.6 20.0-40.0 [facility] CenterPnubrxgVRVJIELWZP1820-26-33 10:35:00 Test Item Value Reference Range Interpretation Comments Monocytes (test code = Monocytes) 14.1 2.0-12.0 [facility] CenterKieworaUHUXOHEEJI0156-75-10 10:35:00 Test Item Value Reference Range Interpretation Comments Eosinophils (test code = 2.6 See_Comment [A utomated message] The Eosinophils) system which ge nerated this result tra nsmitted reference range : <=4.0. The reference r leo was not used to int erpret this result as normal/abnormal . [facility] CenterEldpqcfLTBFOHMEMP7987-17-89 10:35:00 Test Item Value Reference Range Interpretation Comments Basophils (test code = 0.4 See_Comment [Aut omated message] The Basophils) system which ge nerated this result tra nsmitted reference range : <=1.0. The reference r leo was not used to int erpret this result as normal/abnormal . [facility] CenterTtaleorDIJCFYYEYV1889-16-59 10:35:00 Test Item Value Reference Range Interpretation Comments PB Smear Path Peripheral blood smear shows (test code = PB hypochromic normocytic Smear Path) anemia with anisopoikilocytsosis, no increase in schistocytes, slight polychromasia, a few estella cells, moderate thrombocytopenia. Impression: (1) no evidence of microangiopathic hemolysis, (2) RBC morphology is suggestive of anemia of chronic disease or iron deficiency anemia, and renal disease. CPT: 26772 [facility] CenterQhvkcjiIQCIGCDFFC6283-79-01 10:35:00 Test Item Value Reference Range Interpretation Comments Hct (test code = Hct) 29.3 36.0-48.0 [facility] CenterLfnymaxKIHZKKNHOZ2491-86-58 10:35:00 Test Item Value Reference Range Interpretation Comments Hgb (test code = Hgb) 9.2 12.0-16.0 [facility] CenterUkyicujLHBLDVGITU9468-91-05 10:35:00 Test Item Value Reference Range Interpretation Comments RBC (test code = RBC) 3.54 4.20-5.40 [facility] CenterFoffornFZFLILFTEG1853-61-77 10:35:00 Test Item Value Reference Range Interpretation Comments WBC (test code = WBC) 5.3 3.7-10.4 [facility] CenterVssaohzESQMZZMSIJ9106-16-52 10:35:00 Test Item Value Reference Range Interpretation Comments Platelet (test code = Platelet) 87 133-450 [facility] CenterKhkimhsDSGWUQFFIL0060-04-71 10:35:00 Test Item Value Reference Range Interpretation Comments MCHC (test code = MCHC) 31.4 32.0-36.0 [facility] CenterZltbizmPOWPYLGEKM7947-10-62 10:35:00 Test Item Value Reference Range Interpretation Comments RDW (test code = RDW) 17.9 11.5-14.5 [facility] CenterCytldwwKAWWDTXSMD6806-68-59 10:35:00 Test Item Value Reference Range Interpretation Comments MPV (test code = MPV) 10.9 7.4-10.4 [facility] CenterQeuufrqQQPJHODMSX5397-19-64 10:35:00 Test Item Value Reference Range Interpretation Comments MCH (test code = MCH) 26.0 pg 27.0-31.0 [facility] CenterKokqtpyTGIJQEKKWS8142-76-92 10:35:00 Test Item Value Reference Range Interpretation Comments MCV (test code = MCV) 82.8 80.0-98.0 [facility] HospitalBtrbnjoLXHRSZQCDF5065-70-72 10:35:00 Test Item Value Reference Range Interpretation Comments HIV. (test code = Negative *NA*(07/28/16 HIV.) 4:35 AM) [facility] CZMKVAJ6638-30-74 10:22:00 Test Item Value Reference Range Interpretation Comments Total CK (test code = Total CK) 190 12-191 [facility] RKQTJ8792-06-57 10:22:00 Test Item Value Reference Range Interpretation Comments Calcium Lvl (test code = Calcium Lvl) 7.8 8.5-10.5 [facility] BLIHK3150-16-86 10:22:00 Test Item Value Reference Range Interpretation Comments CO2 (test code = CO2) 21 24-32 [facility] HACHQ5817-20-59 10:22:00 Test Item Value Reference Range Interpretation Comments Sodium Lvl (test code = Sodium Lvl) 140 135-145 [facility] LKJIQ7790-42-11 10:22:00 Test Item Value Reference Range Interpretation Comments Potassium Lvl (test code = Potassium 3.8 3.5-5.1 Lvl) [facility] NHBNX3411-98-77 10:22:00 Test Item Value Reference Range Interpretation Comments Chloride Lvl (test code = Chloride Lvl) 106 95-109 [facility] [id number] 10:22:00 Test Item Value Reference Range Interpretation Comments Bili Total (test code = Bili Total) 0.4 0.2-1.3 [facility] HospitalB[facility] TKHOF4994-97-20 10:22:00 Test Item Value Reference Range Interpretation Comments Alk Phos (test code = Alk Phos) 74 39-136 [facility] BAIZT5285-30-76 10:22:00 Test Item Value Reference Range Interpretation Comments eGFR (test code = eGFR) 19 [facility] MXBJL6030-83-27 10:22:00 Test Item Value Reference Range Interpretation Comments Total Protein (test code = Total 5.2 6.4-8.4 Protein) [facility]2017-02-06 10:22:00 Test Item Value Reference Range Interpretation Comments ALT (test code = ALT) 822 See_Comment [Auto mated message] The system which ge nerated this result transmit rohit reference range : <=65. The reference range was not used to interpr et this result as reji l/abnormal. [facility] HospitalEKKCW6898-72-79 10:22:00 Test Item Value Reference Range Interpretation Comments AST (test code = AST) 205 See_Comment [Auto mated message] The system which ge nerated this result transmit rohit reference range : <=37. The reference range was not used to interpr et this result as reji l/abnormal. [facility]2017-02-06 10:22:00 Test Item Value Reference Range Interpretation Comments Albumin Lvl (test code = Albumin Lvl) 1.8 3.5-5.0 [facility]2017-02-06 10:22:00 Test Item Value Reference Range Interpretation Comments BUN (test code = BUN) 54 7-22 [facility]2017-02-06 10:22:00 Test Item Value Reference Range Interpretation Comments Glucose Lvl (test code = Glucose Lvl) 143 70-99 [facility]2017-02-06 10:22:00 Test Item Value Reference Range Interpretation Comments Creatinine Lvl (test code = Creatinine 3.11 0.50-1.40 Lvl) [facility]2017-02-06 10:22:00 Test Item Value Reference Range Interpretation Comments B/C Ratio (test code = B/C Ratio) 17 6-25 [facility]2017-02-06 10:22:00 Test Item Value Reference Range Interpretation Comments AGAP (test code = AGAP) 16.8 10.0-20.0 [facility]2017-02-06 10:22:00 Test Item Value Reference Range Interpretation Comments Globulin (test code = Globulin) 3.4 2.7-4.2 [facility]2017-02-06 10:22:00 Test Item Value Reference Range Interpretation Comments A/G Ratio (test code = A/G Ratio) 0.5 0.7-1.6 [facility]2017-02-06 10:22:00 Test Item Value Reference Range Interpretation Comments Magnesium Lvl (test code = Magnesium 2.0 1.8-2.4 Lvl) [facility]2017-02-06 10:22:00 Test Item Value Reference Range Interpretation Comments Phosphorus (test code = Phosphorus) 3.7 2.5-4.5 [facility]QkuqyfeWPRUXOPXHC5595-20-98 10:22:00 Test Item Value Reference Range Interpretation Comments RDW (test code = RDW) 17.7 11.5-14.5 [facility] CenterPexnpjlHRZGVTDTXX9774-78-20 10:22:00 Test Item Value Reference Range Interpretation Comments MCHC (test code = MCHC) 32.9 32.0-36.0 [facility] CenterSsmgzjjKTMESDCAEG8204-97-97 10:22:00 Test Item Value Reference Range Interpretation Comments Hct (test code = Hct) 25.4 36.0-48.0 [facility] CenterNuxojllLZOXQXOUMG5449-77-56 10:22:00 Test Item Value Reference Range Interpretation Comments MCH (test code = MCH) 26.4 pg 27.0-31.0 [facility] CenterRhvbughTHKADJJZMK2796-61-04 10:22:00 Test Item Value Reference Range Interpretation Comments MCV (test code = MCV) 80.3 80.0-98.0 [facility] CenterLnwmmgdPTFQSCMTPJ4015-73-38 10:22:00 Test Item Value Reference Range Interpretation Comments MPV (test code = MPV) 11.4 7.4-10.4 [facility] CenterJmugtqmVDFZCKLIVF2045-62-30 10:22:00 Test Item Value Reference Range Interpretation Comments Platelet (test code = Platelet) 74 133-450 [facility] CenterLafhhlaAKTBATEFVW0248-35-11 10:22:00 Test Item Value Reference Range Interpretation Comments RBC (test code = RBC) 3.16 4.20-5.40 [facility] CenterYturvlgPHPYEOVFTF9332-38-99 10:22:00 Test Item Value Reference Range Interpretation Comments WBC (test code = WBC) 5.3 3.7-10.4 [facility] CenterYilddlxZNESQWMZGL0170-57-96 10:22:00 Test Item Value Reference Range Interpretation Comments Hgb (test code = Hgb) 8.4 12.0-16.0 [facility] CenterLunirfhNXLUJTJXQW5588-00-67 10:22:00 Test Item Value Reference Range Interpretation Comments Monocytes (test code = Monocytes) 14.5 2.0-12.0 [facility] CenterTuqnqbwZVTSREVYDB9266-40-94 10:22:00 Test Item Value Reference Range Interpretation Comments Lymphocytes (test code = Lymphocytes) 29.8 20.0-40.0 [facility] CenterMcyhtcxIBXKJRMOAG5103-32-62 10:22:00 Test Item Value Reference Range Interpretation Comments Eosinophils # (test code 0.1 See_Comment [A utomated message] The = Eosinophils #) system whic h generated this result tra nsmitted reference range : <=0.5. The reference r leo was not used to int erpret this result as normal/abnormal . [facility] CenterHwsbrlhZMAZUSVHPT4273-78-49 10:22:00 Test Item Value Reference Range Interpretation Comments Monocytes # (test code 0.8 See_Comment [Aut omated message] The = Monocytes #) system which generated this result tra nsmitted reference range : <=0.8. The reference r leo was not used to int erpret this result as normal/abnormal . [facility] CenterCqnyhtwYLOGRXMYQL7900-38-63 10:22:00 Test Item Value Reference Range Interpretation Comments Segs-Bands # (test code = Segs-Bands #) 2.9 1.5-8.1 [facility] CenterBgybwwmPKRYUSOWVT5862-50-43 10:22:00 Test Item Value Reference Range Interpretation Comments Lymphocytes # (test code = Lymphocytes 1.6 1.0-5.5 #) [facility] CenterWktphayKZKWKHARZR8814-06-55 10:22:00 Test Item Value Reference Range Interpretation Comments Basophils (test code = 0.4 See_Comment [Aut omated message] The Basophils) system which ge nerated this result tra nsmitted reference range : <=1.0. The reference r leo was not used to int erpret this result as normal/abnormal . [facility] CenterTqtenznVCVREPUHMW6062-82-14 10:22:00 Test Item Value Reference Range Interpretation Comments Eosinophils (test code = 1.2 See_Comment [A utomated message] The Eosinophils) system which ge nerated this result tra nsmitted reference range : <=4.0. The reference r leo was not used to int erpret this result as normal/abnormal . [facility]YCMVN0543-30-60 10:22:00 Test Item Value Reference Range Interpretation Comments Segs (test code = Segs) 54.1 45.0-75.0 [facility] VAAEDIKFY0302-29-78 10:22:00 Test Item Value Reference Range Interpretation Comments Hgb A1C (test code = Hgb A1C) 8.9 [facility] HospitalCARDIAC [id number] 17:40:00 Test Item Value Reference Range Interpretation Comments Total CK (test code = Total CK) 344 12-191 [facility] HospitalHrnocnpFVKDKASQXT7624-52-76 17:40:00 Test Item Value Reference Range Interpretation Comments IVETTE (test code = IVETTE) Positive *ABN*(07/26/16 11:40 AM) [facility] LakeOazttajECBTVOQDJV7144-11-34 17:40:00 Test Item Value Reference Range Interpretation Comments 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 UwbbnvvGNRPXZINGT1327-69-37 17:40:00 Test Item Value Reference Range Interpretation Comments IVETTE Interp (test code Pattern appears = IVETTE Interp) Nucleolar. [facility] LakeCugyeasKGBYZRXHOQ8834-13-04 17:40:00 Test Item Value Reference Range Interpretation Comments SS-B (La) Ab (test code = SS-B (La) Ab) no gt [facility] LakeMoftskmOJGMKGFAFS8597-60-78 17:40:00 Test Item Value Reference Range Interpretation Comments SS-A (Ro) Ab (test code = SS-A (Ro) Ab) no gt [facility] FuovptmQTGLPYRSMJ9366-69-08 17:40:00 Test Item Value Reference Range Interpretation Comments DNA Ab (DS) (test Negative (07/26/16 11:40 code = DNA Ab (DS)) AM) [facility] LakeRevdkecUMBVQMTKVO0780-02-52 17:40:00 Test Item Value Reference Range Interpretation Comments IVETTE Titer (test code = 1:40 *ABN*(07/26/16 IVETTE Titer) 11:40 AM) [facility] [id number] 17:40:00 Test Item Value Reference Range Interpretation Comments U Sodium (test code = U Sodium) 21 [facility] LakePrdlqaeRSASNLQVEU7314-62-76 14:00:00 Test Item Value Reference Range Interpretation Comments INR (test code = INR) 1.11 0.85-1.17 [facility] LakeEmxtqxrTLASRGEDLS6460-93-39 14:00:00 Test Item Value Reference Range Interpretation Comments PT (test code = PT) 14.5 s 12.0-14.7 [facility] LakeCyuxjnzRJNZBFKZYM5844-66-40 14:00:00 Test Item Value Reference Range Interpretation Comments Hep A IgM (test code Negative *NA*(07/26/16 = Hep A IgM) 8:00 AM) [facility] HospitalEvxuyyyYYTSVNIGIP1912-26-94 14:00:00 Test Item Value Reference Range Interpretation Comments Hep B Core IgM (test Negative *NA*(07/26/16 code = Hep B Core 8:00 AM) IgM) [facility]lip[facility]MFYTDUPKX9412-48-97 14:00:00 Test Item Value Reference Range Interpretation Comments Hep C Ab (test code = Negative *NA*(07/26/16 Hep C Ab) 8:00 AM) [facility] HospitalBdpchcqBYYTQUVOPX7913-03-42 14:00:00 Test Item Value Reference Range Interpretation Comments Hep Bs Ag (test code Negative *NA*(07/26/16 = Hep Bs Ag) 8:00 AM) [facility]2017-02-05 10:42:00 Test Item Value Reference Range Interpretation Comments B/C Ratio (test code = B/C Ratio) 17 6-25 [facility]2017-02-05 10:42:00 Test Item Value Reference Range Interpretation Comments ALT (test code = ALT) 1232 See_Comment [Auto mated message] The system which ge nerated this result transmit rohit reference range : <=65. The reference range was not used to interpr et this result as reji l/abnormal. [facility]2017-02-05 10:42:00 Test Item Value Reference Range Interpretation Comments A/G Ratio (test code = A/G Ratio) 0.5 0.7-1.6 [facility]2017-02-05 10:42:00 Test Item Value Reference Range Interpretation Comments Bili Total (test code = Bili Total) 0.3 0.2-1.3 [facility]2017-02-05 10:42:00 Test Item Value Reference Range Interpretation Comments Alk Phos (test code = Alk Phos) 79 39-136 [facility]2017-02-05 10:42:00 Test Item Value Reference Range Interpretation Comments AST (test code = AST) 586 See_Comment [Auto mated message] The system which ge nerated this result transmit rohit reference range : <=37. The reference range was not used to interpr et this result as reji l/abnormal. [facility] HospitalBozuko [id number] 10:42:00 Test Item Value Reference Range Interpretation Comments Total Protein (test code = Total 5.5 6.4-8.4 Protein) [facility] [id number] 10:42:00 Test Item Value Reference Range Interpretation Comments Globulin (test code = Globulin) 3.7 2.7-4.2 [facility] [id number] 10:42:00 Test Item Value Reference Range Interpretation Comments Albumin Lvl (test code = Albumin Lvl) 1.8 3.5-5.0 [facility] [id number] 10:42:00 Test Item Value Reference Range Interpretation Comments Magnesium Lvl (test code = Magnesium 2.1 1.8-2.4 Lvl) [facility]EorunljIDFQXPVDZO2992-49-60 10:42:00 Test Item Value Reference Range Interpretation Comments Acanthocyte (test code = Acanthocyte) Slight [facility] CenterGxvtarjNXMCBUIMFB4400-57-26 10:42:00 Test Item Value Reference Range Interpretation Comments Rouleaux (test code = Present *ABN*(07/26/16 Rouleaux) 4:42 AM) [facility] CenterXepzajvXKQIAMPUIX9534-99-94 10:42:00 Test Item Value Reference Range Interpretation Comments Anisocyte (test code = 1+ *ABN*(07/26/16 4:42 Anisocyte) AM) [facility] CenterIxjlmbfPTQNNJYTXG1084-77-39 10:42:00 Test Item Value Reference Range Interpretation Comments Basophils # (test code 0.1 See_Comment [Aut omated message] The = Basophils #) system which generated this result tra nsmitted reference range : <=0.2. The reference r leo was not used to int erpret this result as normal/abnormal . [facility] HospitalYqxcjnvWJUETVUADY2807-28-62 10:42:00 Test Item Value Reference Range Interpretation Comments Large Plt (test code Moderate *ABN*(07/26/16 = Large Plt) 4:42 AM) [facility] HospitalXdsmpmfJMEZZTJPOV5283-49-77 10:42:00 Test Item Value Reference Range Interpretation Comments C4 Complement (test code = C4 42 16-47 Complement) [facility] AND [id number] 16:34:00 Test Item Value Reference Range Interpretation Comments UA Sq Epi (test code = UA Sq Epi) None Seen [facility] AND [id number] 16:34:00 Test Item Value Reference Range Interpretation Comments UA Waxy Cast (test code = UA Waxy Cast) 1 [facility] AND [id number] 16:34:00 Test Item Value Reference Range Interpretation Comments UA Hyal Cast (test 4 See_Comment [Automat ed message] The code = UA Hyal Cast) system which generated this result transmit rohit reference range : <=2. The reference range was not used to interpr et this result as reji l/abnormal. [facility] AND [id number] 16:34:00 Test Item Value Reference Range Interpretation Comments UA Bacteria (test code = UA Occasional /HPF Bacteria) [facility] AND [id number] 16:34:00 Test Item Value Reference Range Interpretation Comments UA Mucus (test code = UA Mucus) Few /LPF [facility] AND [id number] 16:34:00 Test Item Value Reference Range Interpretation Comments UA Amorph Destiny (test code = Occasional /HPF UA Amorph Destiny) [facility] AND [id number] 16:34:00 Test Item Value Reference Range Interpretation Comments UA Leuk Est (test Negative (07/25/16 10:34 code = UA Leuk Est) AM) [facility] AND [id number] 16:34:00 Test Item Value Reference Range Interpretation Comments UA Nitrite (test code Negative (07/25/16 10:34 = UA Nitrite) AM) [facility] AND [id number] 16:34:00 Test Item Value Reference Range Interpretation Comments UA RBC (test code = 2 See_Comment [Automa rohit message] The UA RBC) system which ge nerated this result transmit rohit reference range : <=2. The reference range was not used to interpr et this result as reji l/abnormal. [facility] AND [id number] 16:34:00 Test Item Value Reference Range Interpretation Comments UA WBC (test code = 6 See_Comment [Automa rohit message] The UA WBC) system which ge nerated this result transmit rohit reference range : <=5. The reference range was not used to interpr et this result as reji l/abnormal. [facility] AND [id number] 16:34:00 Test Item Value Reference Range Interpretation Comments UA Urobilinogen (test code = UA 2.0 0.1-1.0 Urobilinogen) [facility] AND [id number] 16:34:00 Test Item Value Reference Range Interpretation Comments UA Ketones (test code = UA Negative mg/dL Ketones) [facility] AND [id number] 16:34:00 Test Item Value Reference Range Interpretation Comments UA Glucose (test code = UA Glucose) 70 mg/dL [facility] AND [id number] 16:34:00 Test Item Value Reference Range Interpretation Comments UA Blood (test code = Negative (07/25/16 10:34 UA Blood) AM) [facility] AND [id number] 16:34:00 Test Item Value Reference Range Interpretation Comments UA Bili (test code = Negative *NA*(07/25/16 UA Bili) 10:34 AM) [facility] AND [id number] 16:34:00 Test Item Value Reference Range Interpretation Comments UA Protein (test code = UA >=300 mg/dL Protein) [facility] AND [id number] 16:34:00 Test Item Value Reference Range Interpretation Comments UA Spec Grav (test code = UA Spec Grav) 1.012 [facility] AND [id number] 16:34:00 Test Item Value Reference Range Interpretation Comments UA pH (test code = UA pH) 5.5 5.0-8.0 [facility] AND [id number] 16:34:00 Test Item Value Reference Range Interpretation Comments UA Turbidity (test code Slight *ABN*(07/25/16 = UA Turbidity) 10:34 AM) [facility] AND [id number] 16:34:00 Test Item Value Reference Range Interpretation Comments UA Color (test code = Dark Yellow *NA*(07/25/16 UA Color) 10:34 AM) [facility] AND [id number] 16:34:00 Test Item Value Reference Range Interpretation Comments UA Gran Cast (test code = UA Gran Cast) 9 [facility] [id number] 16:34:00 Test Item Value Reference Range Interpretation Comments U Sodium (test code = U Sodium) 30 [facility] [id number] 16:34:00 Test Item Value Reference Range Interpretation Comments U Prot/Creat (test code = U Prot/Creat) 3.1 [facility] [id number] 16:34:00 Test Item Value Reference Range Interpretation Comments U Protein (test code = U Protein) 420.9 [facility]2017-02-04 16:34:00 Test Item Value Reference Range Interpretation Comments U Creatinine (test code = U 136.00 Creatinine) [facility] [id number] 08:55:00 Test Item Value Reference Range Interpretation Comments Magnesium Lvl (test code = Magnesium 2.0 1.8-2.4 Lvl) [facility] [id number] 08:55:00 Test Item Value Reference Range Interpretation Comments Phosphorus (test code = Phosphorus) 5.2 2.5-4.5 [facility] HospitalAp[facility]a [id number] 17:29:00 Test Item Value Reference Range Interpretation Comments Troponin-I (test code 0.28 See_Comment [Auto mated message] The = Troponin-I) system which g enerated this result transmit rohit reference range : <=0.40. The reference r leo was not used to interpr et this result as reji l/abnormal. [facility] 17:29:00 Test Item Value Reference Range Interpretation Comments Total CK (test code = Total CK) 2616 12-191 [facility]Ap[facility] [id number] 17:29:00 Test Item Value Reference Range Interpretation Comments Troponin-T (test code 0.144 See_Comment [Auto mated message] The = Troponin-T) system which g enerated this result transmit rohit reference range : <=0.100. The reference r leo was not used to interpr et this result as reji l/abnormal. [facility]2017-[facility] 17:29:00 Test Item Value Reference Range Interpretation Comments CK MB Index (test 0.2 See_Comment [Automate d message] The code = CK MB Index) system w [facility] generated this result transmit rohit reference range : <=2.5. The reference range was not used to interpr et this result as reji l/abnormal. [facility] [employer]2017-02-03 17:29:00 Test Item Value Reference Range Interpretation Comments CK MB (test code = CK MB) 6.3 0.5-3.[address] [facility] [employer]2017-02-03 11:20:00 Test Item Value Reference Range Interpretation Comments Troponin-I (test code 0.38 See_Comment [Auto mated message] The = Troponin-I) system which g enerated this result transmit rohit reference range : <=0.40. The reference r leo was not used to interpr et this result as reji l/abnormal. [facility] [employer]2017-02-03 11:20:00 Test Item Value Reference Range Interpretation Comments Troponin-T (test code 0.173 See_Comment [Auto mated message] The = Troponin-T) system which g enerated this result transmit rohit reference range : <=0.100. The reference r leo was not used to interpr et this result as reji l/abnormal. [facility] [employer]2017-02-03 11:20:00 Test Item Value Reference Range Interpretation Comments CK MB Index (test 0.2 See_Comment [Automate d message] The code = CK MB Index) system [facility] generated this result transmit rohit reference range : <=2.5. The reference range was not used to interpr et this result as reji l/abnormal. [facility] [employer]2017-02-03 11:20:00 Test Item Value Reference Range Interpretation Comments CK MB (test code = CK MB) 5.6 0.5-3.[address] [facility] [employer]2017-02-03 11:20:00 Test Item Value Reference Range Interpretation Comments Phosphorus (test code = Phosphorus) 5.5 2.5-4.[address] [facility] [employer]2017-02-03 06:18:00 Test Item Value Reference Range Interpretation Comments BNP (test code = BNP) [address] [facility] [employer]2017-02-03 04:59:27 Test Item Value Reference Range Interpretation Comments Troponin-I (test code 0.57 See_Comment [Auto mated message] The = Troponin-I) system which g enerated this result transmit rohit reference range : <=0.40. The reference r leo was not used to interpr et this result as reji l/abnormal. [facility] [employer]2016-12-26 10:22:00 Test Item Value Reference Range Interpretation Comments BNP (test code = BNP) [address] [facility] [employer]2016-12-26 10:22:00 Test Item Value Reference Range Interpretation Comments Magnesium Lvl (test code = Magnesium 2.1 1.8-2.4 Lvl) [facility]2016-12-26 10:22:00 Test Item Value Reference Range Interpretation Comments Glucose Lvl (test code = Glucose Lvl) 117 70-99 [facility]2016-12-26 10:22:00 Test Item Value Reference Range Interpretation Comments BUN (test code = BUN) 41 7-22 [facility]2016-12-26 10:22:00 Test Item Value Reference Range Interpretation Comments Creatinine Lvl (test code = Creatinine 2.00 0.50-1.40 Lvl) [facility]2016-12-26 10:22:00 Test Item Value Reference Range Interpretation Comments Calcium Lvl (test code = Calcium Lvl) 9.0 8.5-10.5 [facility]2016-12-26 10:22:00 Test Item Value Reference Range Interpretation Comments Chloride Lvl (test code = Chloride Lvl) 102 95-109 [facility]2016-12-26 10:22:00 Test Item Value Reference Range Interpretation Comments CO2 (test code = CO2) 33 24-32 [facility]2016-12-26 10:22:00 Test Item Value Reference Range Interpretation Comments Sodium Lvl (test code = Sodium Lvl) 144 135-145 [facility]2016-12-26 10:22:00 Test Item Value Reference Range Interpretation Comments Potassium Lvl (test code = Potassium 4.0 3.5-5.1 Lvl) [facility]2016-12-26 10:22:00 Test Item Value Reference Range Interpretation Comments eGFR (test code = eGFR) 32 [facility]2016-12-26 10:22:00 Test Item Value Reference Range Interpretation Comments AGAP (test code = AGAP) 13.0 10.0-20.0 [facility]2016-12-26 10:22:00 Test Item Value Reference Range Interpretation Comments Phosphorus (test code = Phosphorus) 4.6 2.5-4.5 [facility]YudknqsSIXXWSUYBM1617-14-92 10:22:00 Test Item Value Reference Range Interpretation Comments RBC (test code = RBC) 3.68 4.20-5.40 [facility] CenterScddbmcEFAGNRLTDD0004-94-91 10:22:00 Test Item Value Reference Range Interpretation Comments Hgb (test code = Hgb) 9.9 12.0-16.0 [facility] CenterVwinxldIZDDYNGQUL0293-08-27 10:22:00 Test Item Value Reference Range Interpretation Comments MCH (test code = MCH) 26.8 pg 27.0-31.0 [facility] CenterTazhwqdKKMJMKHHRH5028-27-52 10:22:00 Test Item Value Reference Range Interpretation Comments MCHC (test code = MCHC) 34.2 32.0-36.0 [facility] CenterAtgtcziTLJXBIURLR3489-95-29 10:22:00 Test Item Value Reference Range Interpretation Comments MCV (test code = MCV) 78.3 80.0-98.0 [facility] CenterZjkemcbFBWFJEYOIO0970-69-98 10:22:00 Test Item Value Reference Range Interpretation Comments Hct (test code = Hct) 28.8 36.0-48.0 [facility] CenterIigvnzoHVZICFDCEV0381-06-90 10:22:00 Test Item Value Reference Range Interpretation Comments Platelet (test code = Platelet) 191 133-450 [facility] CenterYnxwdonUXSFIURBBZ8442-89-75 10:22:00 Test Item Value Reference Range Interpretation Comments MPV (test code = MPV) 9.5 7.4-10.4 [facility] CenterVfubbmbPVBTPTVYQX4115-49-21 10:22:00 Test Item Value Reference Range Interpretation Comments RDW (test code = RDW) 15.3 11.5-14.5 [facility] CenterBpdotbmTRVUHEASIX5074-82-96 10:22:00 Test Item Value Reference Range Interpretation Comments WBC (test code = WBC) 5.6 3.7-10.4 [facility] CenterEluymiiRVQWDMZGFH1425-72-59 10:22:00 Test Item Value Reference Range Interpretation Comments Eosinophils # (test code 0.5 See_Comment [A utomated message] The = Eosinophils #) system whic h generated this result tra nsmitted reference range : <=0.5. The reference r leo was not used to int erpret this result as normal/abnormal . [facility] CenterMvfkvozWULPDSUNNR1662-48-77 10:22:00 Test Item Value Reference Range Interpretation Comments Microcyte (test code = 1+ *ABN*(06/15/16 Microcyte) 4:22 AM) [facility] CenterFhyxxzhYAFWITJCLG6032-67-08 10:22:00 Test Item Value Reference Range Interpretation Comments Basophils # (test code 0.1 See_Comment [Aut omated message] The = Basophils #) system which generated this result tra nsmitted reference range : <=0.2. The reference r leo was not used to int erpret this result as normal/abnormal . [facility] CenterVmcblelPDKFUVWTFG2610-13-30 10:22:00 Test Item Value Reference Range Interpretation Comments Lymphocytes (test code = Lymphocytes) 33.5 20.0-40.0 [facility] CenterMavakibDSDMMDZCPF1664-82-89 10:22:00 Test Item Value Reference Range Interpretation Comments Segs (test code = Segs) 47.6 45.0-75.0 [facility] CenterBwxjppdPBZOBXWPTZ2323-72-27 10:22:00 Test Item Value Reference Range Interpretation Comments Monocytes (test code = Monocytes) 8.4 2.0-12.0 [facility] CenterYtoefieMQNZETSPTM4465-02-70 10:22:00 Test Item Value Reference Range Interpretation Comments Eosinophils (test code = 9.4 See_Comment [A utomated message] The Eosinophils) system which ge nerated this result tra nsmitted reference range : <=4.0. The reference r leo was not used to int erpret this result as normal/abnormal . [facility]WkzqlheBOGXCVYIVQ8907-40-31 10:22:00 Test Item Value Reference Range Interpretation Comments Segs-Bands # (test code = Segs-Bands #) 2.6 1.5-8.1 [facility] CenterGacvnrxTJHKOGXYAT8573-65-38 10:22:00 Test Item Value Reference Range Interpretation Comments Lymphocytes # (test code = Lymphocytes 1.9 1.0-5.5 #) [facility] CenterWmguwdyJWCUZZNVCI5454-20-27 10:22:00 Test Item Value Reference Range Interpretation Comments Basophils (test code = 1.1 See_Comment [Aut omated message] The Basophils) system which ge nerated this result tra nsmitted reference range : <=1.0. The reference r leo was not used to int erpret this result as normal/abnormal . [facility] CenterJcmtelpDIVXZTLXYW7689-27-18 10:22:00 Test Item Value Reference Range Interpretation Comments Monocytes # (test code 0.5 See_Comment [Aut omated message] The = Monocytes #) system which generated this result tra nsmitted reference range : <=0.8. The reference r leo was not used to int erpret this result as normal/abnormal . [facility]2016-12-25 11:03:00 Test Item Value Reference Range Interpretation Comments Phosphorus (test code = Phosphorus) 4.8 2.5-4.5 [facility]2016-12-25 11:03:00 Test Item Value Reference Range Interpretation Comments Magnesium Lvl (test code = Magnesium 2.0 1.8-2.4 Lvl) [facility]2016-12-25 11:03:00 Test Item Value Reference Range Interpretation Comments eGFR (test code = eGFR) 32 [facility]2016-12-25 11:03:00 Test Item Value Reference Range Interpretation Comments Chloride Lvl (test code = Chloride Lvl) 101 95-109 [facility]2016-12-25 11:03:00 Test Item Value Reference Range Interpretation Comments Potassium Lvl (test code = Potassium 4.4 3.5-5.1 Lvl) [facility]2016-12-25 11:03:00 Test Item Value Reference Range Interpretation Comments BUN (test code = BUN) 37 7-22 [facility]2016-12-25 11:03:00 Test Item Value Reference Range Interpretation Comments Glucose Lvl (test code = Glucose Lvl) 119 70-99 [facility]2016-12-25 11:03:00 Test Item Value Reference Range Interpretation Comments Creatinine Lvl (test code = Creatinine 2.00 0.50-1.40 Lvl) [facility]2016-12-25 11:03:00 Test Item Value Reference Range Interpretation Comments Sodium Lvl (test code = Sodium Lvl) 142 135-145 [facility]2016-12-25 11:03:00 Test Item Value Reference Range Interpretation Comments Calcium Lvl (test code = Calcium Lvl) 8.7 8.5-10.5 [facility]2016-12-25 11:03:00 Test Item Value Reference Range Interpretation Comments CO2 (test code = CO2) 32 24-32 [facility]2016-12-25 11:03:00 Test Item Value Reference Range Interpretation Comments AGAP (test code = AGAP) 13.4 10.0-20.0 [facility] CenterPpnrgvfTOPFNFPGBX7344-53-39 11:03:00 Test Item Value Reference Range Interpretation Comments Eosinophils (test code = 10.3 See_Comment [A utomated message] The Eosinophils) system which ge nerated this result tra nsmitted reference range : <=4.0. The reference r leo was not used to int erpret this result as normal/abnormal . [facility] CenterWmgxetyBZWDCMHKYH1354-02-37 11:03:00 Test Item Value Reference Range Interpretation Comments Basophils # (test code 0.1 See_Comment [Aut omated message] The = Basophils #) system which generated this result tra nsmitted reference range : <=0.2. The reference r leo was not used to int erpret this result as normal/abnormal . [facility] CenterZldejgrGMZKJAUQDH9373-97-66 11:03:00 Test Item Value Reference Range Interpretation Comments Eosinophils # (test code 0.5 See_Comment [A utomated message] The = Eosinophils #) system whic h generated this result tra nsmitted reference range : <=0.5. The reference r leo was not used to int erpret this result as normal/abnormal . [facility] CenterFtmqzrfCLPHRBFNTJ5322-39-10 11:03:00 Test Item Value Reference Range Interpretation Comments Monocytes # (test code 0.5 See_Comment [Aut omated message] The = Monocytes #) system which generated this result tra nsmitted reference range : <=0.8. The reference r leo was not used to int erpret this result as normal/abnormal . [facility] CenterFeigofkRUDQYDJBKN8919-50-29 11:03:00 Test Item Value Reference Range Interpretation Comments Segs-Bands # (test code = Segs-Bands #) 2.1 1.5-8.1 [facility] CenterLhrhybgKPFCFIZTYP0291-02-08 11:03:00 Test Item Value Reference Range Interpretation Comments Basophils (test code = 1.2 See_Comment [Aut omated message] The Basophils) system which ge nerated this result tra nsmitted reference range : <=1.0. The reference r leo was not used to int erpret this result as normal/abnormal . [facility] CenterHdwiyodDMOYRIWUYV3441-67-56 11:03:00 Test Item Value Reference Range Interpretation Comments Lymphocytes # (test code = Lymphocytes 1.9 1.0-5.5 #) [facility] CenterPimwpjzDUBXABHUAA3015-89-75 11:03:00 Test Item Value Reference Range Interpretation Comments Segs (test code = Segs) 42.5 45.0-75.0 [facility] CenterWjakudmKIPDMNJKHL1664-44-23 11:03:00 Test Item Value Reference Range Interpretation Comments Lymphocytes (test code = Lymphocytes) 37.0 20.0-40.0 [facility] CenterJecwmrxTRXTVMHDOE8444-16-08 11:03:00 Test Item Value Reference Range Interpretation Comments Monocytes (test code = Monocytes) 9.0 2.0-12.0 [facility] CenterNiaocoxEACLJALQDX7665-39-80 11:03:00 Test Item Value Reference Range Interpretation Comments MPV (test code = MPV) 9.8 7.4-10.4 [facility] CenterSnbsommMZTMBXPQZB2651-15-64 11:03:00 Test Item Value Reference Range Interpretation Comments WBC (test code = WBC) 5.0 3.7-10.4 [facility] CenterCyyhnucWWVZIVNAUB5683-89-77 11:03:00 Test Item Value Reference Range Interpretation Comments RBC (test code = RBC) 3.57 4.20-5.40 [facility] CenterUjtaxjrJBQVDYWZRH0512-14-09 11:03:00 Test Item Value Reference Range Interpretation Comments Hgb (test code = Hgb) 9.4 12.0-16.0 [facility] CenterWxqfsbzAPOUSSTGKG5828-78-47 11:03:00 Test Item Value Reference Range Interpretation Comments Hct (test code = Hct) 28.5 36.0-48.0 [facility] CenterEphckgwSUWLTFJZPJ6044-44-36 11:03:00 Test Item Value Reference Range Interpretation Comments Platelet (test code = Platelet) 183 133-450 [facility] CenterUjlagywUEWFCACICA0523-31-06 11:03:00 Test Item Value Reference Range Interpretation Comments MCV (test code = MCV) 79.9 80.0-98.0 [facility] CenterZlmeazrSXXZYAJGGS3727-21-08 11:03:00 Test Item Value Reference Range Interpretation Comments MCH (test code = MCH) 26.3 pg 27.0-31.0 [facility] CenterUtlmetcLUIESBTXWB3443-77-48 11:03:00 Test Item Value Reference Range Interpretation Comments MCHC (test code = MCHC) 33.0 32.0-36.0 [facility] CenterEyatqrhEEZZYLPKMI8540-66-54 11:03:00 Test Item Value Reference Range Interpretation Comments RDW (test code = RDW) 15.9 11.5-14.5 [facility]2016-12-24 10:26:00 Test Item Value Reference Range Interpretation Comments U Prot/Creat (test code = U Prot/Creat) 6.9 [facility]2016-12-24 10:26:00 Test Item Value Reference Range Interpretation Comments U Creatinine (test code = U Creatinine) 19.30 [facility]2016-12-24 10:26:00 Test Item Value Reference Range Interpretation Comments U Protein (test code = U Protein) 133.1 [facility] CenterLrjzccoEOYEPQBMOR6053-71-89 09:20:00 Test Item Value Reference Range Interpretation Comments MPV (test code = MPV) 9.7 7.4-10.4 [facility] CenterHnfcfpfKHXJLFDEGH7571-63-93 09:20:00 Test Item Value Reference Range Interpretation Comments Platelet (test code = Platelet) 184 133-450 [facility] CenterKxdweyrICMVUSYSUO3761-21-94 09:20:00 Test Item Value Reference Range Interpretation Comments RDW (test code = RDW) 15.9 11.5-14.5 [facility] CenterRnelqboQYKOUTRLUF3753-26-09 09:20:00 Test Item Value Reference Range Interpretation Comments MCV (test code = MCV) 79.3 80.0-98.0 [facility] CenterFjqfenhKFQNZZZYGI2923-64-65 09:20:00 Test Item Value Reference Range Interpretation Comments MCHC (test code = MCHC) 33.0 32.0-36.0 [facility] CenterDytszeuHYWSQWETHE1148-99-14 09:20:00 Test Item Value Reference Range Interpretation Comments MCH (test code = MCH) 26.2 pg 27.0-31.0 [facility] CenterYyrzzcsQFTRKXNPZN3394-25-40 09:20:00 Test Item Value Reference Range Interpretation Comments Hct (test code = Hct) 29.4 36.0-48.0 [facility] CenterIafukkjGCONUSCXWK7194-58-81 09:20:00 Test Item Value Reference Range Interpretation Comments Hgb (test code = Hgb) 9.7 12.0-16.0 [facility] CenterVjjuwntVHZWRSAMQK5696-50-61 09:20:00 Test Item Value Reference Range Interpretation Comments RBC (test code = RBC) 3.70 4.20-5.40 [facility] CenterDqaszqrYMAFYLRKUV3003-00-11 09:20:00 Test Item Value Reference Range Interpretation Comments WBC (test code = WBC) 5.7 3.7-10.4 [facility] CenterFceggmgHVQGXUENVB7690-53-10 09:20:00 Test Item Value Reference Range Interpretation Comments Basophils # (test code 0.1 See_Comment [Aut omated message] The = Basophils #) system which generated this result tra nsmitted reference range : <=0.2. The reference r leo was not used to int erpret this result as normal/abnormal . [facility] CenterXvjywabRNVRUDAEDI9824-80-24 09:20:00 Test Item Value Reference Range Interpretation Comments Lymphocytes # (test code = Lymphocytes 2.2 1.0-5.5 #) [facility] CenterIeaknpkBFZMOEOLHK6325-56-21 09:20:00 Test Item Value Reference Range Interpretation Comments Eosinophils # (test code 0.5 See_Comment [A utomated message] The = Eosinophils #) system wh h generated this result tra nsmitted reference range : <=0.5. The reference r leo was not used to int erpret this result as normal/abnormal . [facility] CenterNpzyrolURUHDKLPKE4860-55-55 09:20:00 Test Item Value Reference Range Interpretation Comments Monocytes # (test code 0.5 See_Comment [Aut omated message] The = Monocytes #) system which generated this result tra nsmitted reference range : <=0.8. The reference r leo was not used to int erpret this result as normal/abnormal . [facility] CenterMzzhocvOASDYZBDTH7197-55-08 09:20:00 Test Item Value Reference Range Interpretation Comments Basophils (test code = 1.1 See_Comment [Aut omated message] The Basophils) system which ge nerated this result tra nsmitted reference range : <=1.0. The reference r leo was not used to int erpret this result as normal/abnormal . [facility] CenterWegeavnXDDFLWJKBE5286-56-62 09:20:00 Test Item Value Reference Range Interpretation Comments Segs-Bands # (test code = Segs-Bands #) 2.3 1.5-8.1 [facility] CenterRdamocwEVDLTHYXTO1831-12-04 09:20:00 Test Item Value Reference Range Interpretation Comments Eosinophils (test code = 9.5 See_Comment [A utomated message] The Eosinophils) system which ge nerated this result tra nsmitted reference range : <=4.0. The reference r leo was not used to int erpret this result as normal/abnormal . [facility] CenterVkgsooxMCSXNRYCLR7616-45-60 09:20:00 Test Item Value Reference Range Interpretation Comments Monocytes (test code = Monocytes) 9.0 2.0-12.0 [facility] CenterLszjcwcZZDMPPVLAA6867-35-04 09:20:00 Test Item Value Reference Range Interpretation Comments Lymphocytes (test code = Lymphocytes) 38.9 20.0-40.0 [facility] CenterOujvatmZHCGAWOKLU2664-49-96 09:20:00 Test Item Value Reference Range Interpretation Comments Segs (test code = Segs) 41.5 45.0-75.0 [facility]2016-12-24 06:34:00 Test Item Value Reference Range Interpretation Comments Magnesium Lvl (test code = Magnesium 1.7 1.8-2.4 Lvl) [facility]2016-12-24 06:34:00 Test Item Value Reference Range Interpretation Comments Phosphorus (test code = Phosphorus) 4.2 2.5-4.5 [facility]RhewruxCBOLFEGJZDUT3889-47-72 06:34:00 Test Item Value Reference Range Interpretation Comments AGAP (test code = AGAP) 14.3 10.0-20.0 [facility] HospitalYpseybdMIQJSLUFMCGV5243-70-65 06:34:00 Test Item Value Reference Range Interpretation Comments eGFR (test code = eGFR) 41 [facility] HospitalSxzabyvYLRAJGKHYGLO7489-26-34 06:34:00 Test Item Value Reference Range Interpretation Comments Chloride Lvl (test code = Chloride Lvl) 103 95-109 [facility] HospitalQrtiaiaGRJEOOMLZKGN8033-68-86 06:34:00 Test Item Value Reference Range Interpretation Comments Calcium Lvl (test code = Calcium Lvl) 8.5 8.5-10.5 [facility] HospitalIjvesfhHPOATFCMXOBS8928-34-53 06:34:00 Test Item Value Reference Range Interpretation Comments CO2 (test code = CO2) 32 24-32 [facility] HospitalNiulixaUXAPSFDXGJXX4892-75-96 06:34:00 Test Item Value Reference Range Interpretation Comments Glucose Lvl (test code = Glucose Lvl) 173 70-99 [facility] HospitalWbdquwcVWEPMDHNTXNZ2401-26-77 06:34:00 Test Item Value Reference Range Interpretation Comments BUN (test code = BUN) 37 7-22 [facility] HospitalLftfxthQGULGVOPSRZO0461-44-82 06:34:00 Test Item Value Reference Range Interpretation Comments Creatinine Lvl (test code = Creatinine 1.63 0.50-1.40 Lvl) [facility] HospitalEezyyceNPDMQSGTEQWN5421-89-97 06:34:00 Test Item Value Reference Range Interpretation Comments Potassium Lvl (test code = Potassium 4.3 3.5-5.1 Lvl) [facility] HospitalWdpbgsdLLUNWTFYTJJH9686-81-77 06:34:00 Test Item Value Reference Range Interpretation Comments Sodium Lvl (test code = Sodium Lvl) 145 135-145 [facility] IGVXD4874-65-32 16:21:00 Test Item Value Reference Range Interpretation Comments Ammonia (test code = Ammonia) 48.0 [facility]SipoeexRECUBIOODN0944-72-69 14:56:00 Test Item Value Reference Range Interpretation Comments IVETTE Interp (test code Pattern appears = IVETTE Interp) Nucleolar. [facility] HospitalQejmhovOLGMLINOEV5504-11-38 14:56:00 Test Item Value Reference Range Interpretation Comments IVETTE Titer (test code = 1:40 *ABN*(06/11/16 IVETTE Titer) 8:56 AM) [facility] HospitalVwjkxxxWSMEIQEDUN5043-51-74 14:56:00 Test Item Value Reference Range Interpretation Comments Hep Bs Ag (test code Negative *NA*(06/11/16 = Hep Bs Ag) 8:56 AM) [facility] HospitalNgaiuatZGAZLYKDNS0149-40-41 14:56:00 Test Item Value Reference Range Interpretation Comments Hep C Ab (test code = Negative *NA*(06/11/16 Hep C Ab) 8:56 AM) [facility] HospitalQbawbusSPNBJBEQVJ5369-87-82 14:56:00 Test Item Value Reference Range Interpretation Comments Hep B Core IgM (test Negative *NA*(06/11/16 code = Hep B Core 8:56 AM) IgM) [facility] HospitalDuesywaZKRUOWUGLW7903-67-40 14:56:00 Test Item Value Reference Range Interpretation Comments Hep A IgM (test code Negative *NA*(06/11/16 = Hep A IgM) 8:56 AM) [facility] HospitalGazqjihYZNEIYQRBG3324-81-16 14:56:00 Test Item Value Reference Range Interpretation Comments HIV Ag/Ab 4th Gen Negative *NA*(06/11/16 (test code = HIV 8:56 AM) Ag/Ab 4th Gen) [facility] HospitalJxpnqsrURVHXTICFD5740-38-61 14:56:00 Test Item Value Reference Range Interpretation Comments IVETTE (test code = IVETTE) Positive *ABN*(06/11/16 8:56 AM) [facility]2016-12-22 10:42:00 Test Item Value Reference Range Interpretation Comments Bili Total (test code = Bili Total) 0.1 0.2-1.3 [place] 775656-12-22 10:42:00 Test Item Value Reference Range Interpretation Comments Total Protein (test code = Total 5.2 6.4-8.4 Protein) [facility]2016-12-22 10:42:00 Test Item Value Reference Range Interpretation Comments Albumin Lvl (test code = Albumin Lvl) 1.6 3.5-5.0 [facility]2016-12-22 10:42:00 Test Item Value Reference Range Interpretation Comments B/C Ratio (test code = B/C Ratio) 20 6-25 [facility]2016-12-22 10:42:00 Test Item Value Reference Range Interpretation Comments Globulin (test code = Globulin) 3.6 2.7-4.2 [facility]2016-12-22 10:42:00 Test Item Value Reference Range Interpretation Comments A/G Ratio (test code = A/G Ratio) 0.4 0.7-1.6 [facility]2016-12-22 10:42:00 Test Item Value Reference Range Interpretation Comments Alk Phos (test code = Alk Phos) 74 39-136 [facility]2016-12-22 10:42:00 Test Item Value Reference Range Interpretation Comments ALT (test code = ALT) 14 See_Comment [Auto mated message] The system which ge nerated this result transmit rohit reference range : <=65. The reference range was not used to interpr et this result as reji l/abnormal. [facility]2016-12-22 10:42:00 Test Item Value Reference Range Interpretation Comments AST (test code = AST) 13 See_Comment [Auto mated message] The system which ge nerated this result transmit rohit reference range : <=37. The reference range was not used to interpr et this result as reji l/abnormal. [facility] HospitalTwrpvctRLVYAGEPAY3055-41-99 10:42:00 Test Item Value Reference Range Interpretation Comments INR (test code = INR) 1.06 0.85-1.17 [facility]EhbaoadSEAWVBEGNR2751-29-38 10:42:00 Test Item Value Reference Range Interpretation Comments PT (test code = PT) 14.0 s 12.0-14.7 [facility] HospitalRljwxumEEAJJBTGAF0223-28-46 10:42:00 Test Item Value Reference Range Interpretation Comments PTT (test code = PTT) 36.4 s 22.9-35.8 [facility] ZMHRXIMNR5537-85-62 10:42:00 Test Item Value Reference Range Interpretation Comments Hgb A1C (test code = Hgb A1C) 10.5 [facility] HospitalCARAC QXLWYLB3225-91-46 02:08:00 Test Item Value Reference Range Interpretation Comments CK MB Index (test 1.8 See_Comment [Automate d message] The code = CK MB Index) system [facility] generated this result transmit rohit reference range : <=2.5. The reference range was not used to interpr et this result as reji l/abnormal. [facility] CPEIBZU2823-76-43 02:08:00 Test Item Value Reference Range Interpretation Comments CK MB (test code = CK MB) 2.9 0.5-3.6 [facility] NDVRFRH0594-36-98 02:08:00 Test Item Value Reference Range Interpretation Comments Troponin-T (test code 0.061 See_Comment [Auto mated message] The = Troponin-T) system which g enerated this result transmit rohit reference range : <=0.100. The reference r leo was not used to interpr et this result as reji l/abnormal. [facility] ZXSTYIT7987-34-97 02:08:00 Test Item Value Reference Range Interpretation Comments Total CK (test code = Total CK) 159 12-191 [facility] WHRRJTK8611-39-23 02:08:00 Test Item Value Reference Range Interpretation Comments Troponin-I (test code no gt See_Comment [Auto mated message] The = Troponin-I) system which g enerated this result transmit rohit reference range : <=0.40. The reference r leo was not used to interpr et this result as reji l/abnormal. [place] 775656-12-22 02:08:00 Test Item Value Reference Range Interpretation Comments Bili Total (test code = Bili Total) 0.2 0.2-1.3 [place] 775656-12-22 02:08:00 Test Item Value Reference Range Interpretation Comments Bili Direct (test code 0.1 See_Comment [Aut omated message] The = Bili Direct) system which generated this result tra nsmitted reference range : <=0.3. The reference r leo was not used to int erpret this result as reji l/abnormal. [place] 775656-12-22 02:08:00 Test Item Value Reference Range Interpretation Comments Bili Indirect (test 0.1 See_Comment [Automa rohit message] The code = Bili Indirect) system which generated this result tra nsmitted reference range : <=1.0. The reference r leo was not used to int erpret this result as normal/abnormal . [place] 775656-12-22 02:08:00 Test Item Value Reference Range Interpretation Comments Total Protein (test code = Total 5.7 6.4-8.4 Protein) [place] 775656-12-22 02:08:00 Test Item Value Reference Range Interpretation Comments A/G Ratio (test code = A/G Ratio) 0.5 0.7-1.6 [place] 775656-12-22 02:08:00 Test Item Value Reference Range Interpretation Comments Albumin Lvl (test code = Albumin Lvl) 1.8 3.5-5.0 [place] 775656-12-22 02:08:00 Test Item Value Reference Range Interpretation Comments Globulin (test code = Globulin) 3.9 2.7-4.2 [place] 775656-12-22 02:08:00 Test Item Value Reference Range Interpretation Comments Alk Phos (test code = Alk Phos) 99 39-136 [place] 775656-12-22 02:08:00 Test Item Value Reference Range Interpretation Comments AST (test code = AST) 21 See_Comment [Auto mated message] The system which ge nerated this result transmit rohit reference range : <=37. The reference range was not used to interpr et this result as reji l/abnormal. [facility] [id number] 02:08:00 Test Item Value Reference Range Interpretation Comments ALT (test code = ALT) 17 See_Comment [Auto mated message] The system which ge nerated this result transmit rohit reference range : <=65. The reference range was not used to interpr et this result as reji l/abnormal. [facility] [id number] 02:08:00 Test Item Value Reference Range Interpretation Comments UDS Note (test code = See Note *NA*(06/10/16 UDS Note) 8:08 PM) [facility] [id number] 02:08:00 Test Item Value Reference Range Interpretation Comments U Propoxyph Scr (test Negative *NA*(06/10/16 code = U Propoxyph Scr) 8:08 PM) [facility] [id number] 02:08:00 Test Item Value Reference Range Interpretation Comments U Opiate Scr (test Negative *NA*(06/10/16 code = U Opiate Scr) 8:08 PM) [facility] [id number] 02:08:00 Test Item Value Reference Range Interpretation Comments U Methadone Scr (test Negative *NA*(06/10/16 code = U Methadone Scr) 8:08 PM) [facility] [id number] 02:08:00 Test Item Value Reference Range Interpretation Comments U Phencyc Scr (test Negative *NA*(06/10/16 code = U Phencyc Scr) 8:08 PM) [facility] [id number] 02:08:00 Test Item Value Reference Range Interpretation Comments U Cannab Scr (test Negative *NA*(06/10/16 code = U Cannab Scr) 8:08 PM) [facility] [id number] 02:08:00 Test Item Value Reference Range Interpretation Comments U Amph Scr (test code Negative *NA*(06/10/16 = U Amph Scr) 8:08 PM) [facility] SXEKMO9849-17-10 02:08:00 Test Item Value Reference Range Interpretation Comments U Kelly Scr (test code Negative *NA*(06/10/16 = U Kelly Scr) 8:08 PM) [facility] EEJKUG8421-51-84 02:08:00 Test Item Value Reference Range Interpretation Comments U Benzodia Scr (test Negative *NA*(06/10/16 code = U Benzodia Scr) 8:08 PM) [facility] [id number] 02:08:00 Test Item Value Reference Range Interpretation Comments U Cocaine Scr (test Negative *NA*(06/10/16 code = U Cocaine Scr) 8:08 PM) [facility] WiimvxhUENKPE1400-71-90 02:08:00 Test Item Value Reference Range Interpretation Comments LDL (Calculated) (test code = LDL 75 (Calculated)) [facility] CszomcnHBABAQ9636-34-22 02:08:00 Test Item Value Reference Range Interpretation Comments VLDL (test code = VLDL) 27 [facility] EviunoaKQAFCE9084-09-36 02:08:00 Test Item Value Reference Range Interpretation Comments Chol (test code = Chol) 133 [facility] HqvqacxWVAEJG8878-64-30 02:08:00 Test Item Value Reference Range Interpretation Comments Trig (test code = Trig) 133 [facility] XnmrkrlFGSVXL8581-23-94 02:08:00 Test Item Value Reference Range Interpretation Comments CHD Risk (test code = CHD Risk) 4.29 3.90-5.80 [facility] KcmlaeqJWHGYH4373-33-63 02:08:00 Test Item Value Reference Range Interpretation Comments HDL (test code = HDL) 31 [facility] [facility] [id number] 02:08:00 Test Item Value Reference Range Interpretation Comments UA Urobilinogen (test code = UA <=1.0 mg/dL 0.1-1.0 Urobilinogen) [facility] [id number] 02:08:00 Test Item Value Reference Range Interpretation Comments UA Ketones (test code = UA Negative mg/dL Ketones) [facility] [id number] 02:08:00 Test Item Value Reference Range Interpretation Comments UA Glucose (test code = UA Glucose) 300 mg/dL [facility] [id number] 02:08:00 Test Item Value Reference Range Interpretation Comments UA Protein (test code = UA >=300 mg/dL Protein) [facility] [id number] 02:08:00 Test Item Value Reference Range Interpretation Comments UA pH (test code = UA pH) 6.0 5.0-8.0 [facility] [id number] 02:08:00 Test Item Value Reference Range Interpretation Comments UA Nitrite (test code Negative (06/10/16 8:08 = UA Nitrite) PM) [facility] AND [id number] 02:08:00 Test Item Value Reference Range Interpretation Comments UA Blood (test code = Trace *ABN*(06/10/16 UA Blood) 8:08 PM) [facility] AND [id number] 02:08:00 Test Item Value Reference Range Interpretation Comments UA Bili (test code = Negative *NA*(06/10/16 UA Bili) 8:08 PM) [facility] AND [id number] 02:08:00 Test Item Value Reference Range Interpretation Comments UA Mucus (test code = UA Mucus) Few /LPF [facility] AND [id number] 02:08:00 Test Item Value Reference Range Interpretation Comments UA RBC (test code = 4 See_Comment [Automa rohit message] The UA RBC) system which ge nerated this result transmit rohit reference range : <=2. The reference range was not used to interpr et this result as reji l/abnormal. [facility] AND [id number] 02:08:00 Test Item Value Reference Range Interpretation Comments UA Sq Epi (test code = UA Sq Epi) Few /LPF [facility] AND [id number] 02:08:00 Test Item Value Reference Range Interpretation Comments UA WBC (test code = 5 See_Comment [Automa rohit message] The UA WBC) system which ge nerated this result transmit rohit reference range : <=5. The reference range was not used to interpr et this result as reji l/abnormal. [facility] AND [id number] 02:08:00 Test Item Value Reference Range Interpretation Comments UA Leuk Est (test code Small *ABN*(06/10/16 = UA Leuk Est) 8:08 PM) [facility] AND [id number] 02:08:00 Test Item Value Reference Range Interpretation Comments UA Hyal Cast (test 1 See_Comment [Automat ed message] The code = UA Hyal Cast) system which generated this result transmit rohit reference range : <=2. The reference range was not used to interpr et this result as reji l/abnormal. [facility] AND [id number] 02:08:00 Test Item Value Reference Range Interpretation Comments UA Spec Grav (test code = UA Spec Grav) 1.009 [facility] AND [id number] 02:08:00 Test Item Value Reference Range Interpretation Comments UA Color (test code = Yellow *NA*(06/10/16 UA Color) 8:08 PM) [facility] AND [id number] 02:08:00 Test Item Value Reference Range Interpretation Comments UA Turbidity (test code = Clear (06/10/16 8:08 UA Turbidity) PM) [facility] [id number] 02:08:00 Test Item Value Reference Range Interpretation Comments U Preg (test code = U Negative (06/10/16 8:08 Preg) PM) [facility] [id number] 02:08:00 Test Item Value Reference Range Interpretation Comments U Protein (test code = U Protein) 375.4 [facility] [id number] 02:08:00 Test Item Value Reference Range Interpretation Comments U Prot/Creat (test code = U Prot/Creat) 5.4 [facility] [id number] 02:08:00 Test Item Value Reference Range Interpretation Comments U Creatinine (test code = U Creatinine) 69.80 [facility] [id number] 16:53:00 Test Item Value Reference Range Interpretation Comments BNP (test code = BNP) 1135 [facility] [id number] 16:53:00 Test Item Value Reference Range Interpretation Comments Troponin-I (test code no gt See_Comment [Auto mated message] The = Troponin-I) system which g enerated this result transmit rohit reference range : <=0.40. The reference r leo was not used to interpr et this result as reji l/abnormal. [facility] [id number] 13:02:00 Test Item Value Reference Range Interpretation Comments Lactic Acid WB (test code = Lactic Acid 0.9 0.5-2.2 WB) [facility] HospitalLnzclmyLHTBHSYDNE5375-28-24 12:29:44 Test Item Value Reference Range Interpretation Comments Valproic Acid Lvl (test code = Valproic 10 50-100 Acid Lvl) [facility]qegbmkXJRKFHDDFFYZC9084-66-64 11:21:27 Test Item Value Reference Range Interpretation Comments hCG Tot (test code = hCG Tot) 1 [facility]2015-01-06 11:21:00 Test Item Value Reference Range Interpretation Comments Albumin Lvl (test code = Albumin Lvl) 3.2 3.5-5.0 [facility]2015-01-06 11:21:00 Test Item Value Reference Range Interpretation Comments Total Protein (test code = Total 6.6 6.4-8.4 Protein) [facility]2015-01-06 11:21:00 Test Item Value Reference Range Interpretation Comments Bili Total (test code = Bili Total) 0.6 0.2-1.3 [facility]2015-01-06 11:21:00 Test Item Value Reference Range Interpretation Comments Alk Phos (test code = Alk Phos) 59 39-136 [facility]2015-01-06 11:21:00 Test Item Value Reference Range Interpretation Comments AST (test code = AST) 11 See_Comment [Auto mated message] The system which ge nerated this result transmit rohit reference range : <=37. The reference range was not used to interpr et this result as reji l/abnormal. [facility]2015-01-06 11:21:00 Test Item Value Reference Range Interpretation Comments ALT (test code = ALT) 17 See_Comment [Auto mated message] The system which ge nerated this result transmit rohit reference range : <=65. The reference range was not used to interpr et this result as reji l/abnormal. [facility]2015-01-06 11:21:00 Test Item Value Reference Range Interpretation Comments eGFR (test code = eGFR) 99 [facility]2015-01-06 11:21:00 Test Item Value Reference Range Interpretation Comments Glucose Lvl (test code = Glucose Lvl) 314 70-99 [facility]2015-01-06 11:21:00 Test Item Value Reference Range Interpretation Comments Potassium Lvl (test code = Potassium 3.4 3.5-5.1 Lvl) [facility]2015-01-06 11:21:00 Test Item Value Reference Range Interpretation Comments BUN (test code = BUN) 11 7-22 [facility]2015-01-06 11:21:00 Test Item Value Reference Range Interpretation Comments Creatinine Lvl (test code = Creatinine 0.8 0.5-1.4 Lvl) [facility]2015-01-06 11:21:00 Test Item Value Reference Range Interpretation Comments Sodium Lvl (test code = Sodium Lvl) 134 135-145 [facility]2015-01-06 11:21:00 Test Item Value Reference Range Interpretation Comments Chloride Lvl (test code = Chloride Lvl) 94 95-109 [facility]2015-01-06 11:21:00 Test Item Value Reference Range Interpretation Comments Calcium Lvl (test code = Calcium Lvl) 9.1 8.5-10.5 [facility]2015-01-06 11:21:00 Test Item Value Reference Range Interpretation Comments CO2 (test code = CO2) 24 24-32 [facility]2015-01-06 11:21:00 Test Item Value Reference Range Interpretation Comments A/G Ratio (test code = A/G Ratio) 0.9 0.7-1.6 [facility]2015-01-06 11:21:00 Test Item Value Reference Range Interpretation Comments Globulin (test code = Globulin) 3.4 2.0-4.0 [facility]2015-01-06 11:21:00 Test Item Value Reference Range Interpretation Comments B/C Ratio (test code = B/C Ratio) 14 6-25 [facility]2015-01-06 11:21:00 Test Item Value Reference Range Interpretation Comments AGAP (test code = AGAP) 19.4 10.0-20.0 [facility]2015-01-06 11:21:00 Test Item Value Reference Range Interpretation Comments Lipase Lvl (test code = Lipase Lvl) 81 73-393 [facility] CenterDrelzplRNBYEPPTPP8673-43-64 11:21:00 Test Item Value Reference Range Interpretation Comments Large Plt (test code = Large Plt) Slight [facility] CenterWptykjgXXERGUVRSN0562-19-07 11:21:00 Test Item Value Reference Range Interpretation Comments Basophils # (test code 0.0 See_Comment [Aut omated message] The = Basophils #) system which generated this result tra nsmitted reference range : <=0.2. The reference r leo was not used to int erpret this result as normal/abnormal . [facility] CenterXlzjoyvPXQQQNNKAH3045-73-34 11:21:00 Test Item Value Reference Range Interpretation Comments Anisocyte (test code = 1+ *ABN*(06/26/14 5:21 Anisocyte) AM) [facility] CenterLgjeplrBSPPKLDVTJ4067-14-96 11:21:00 Test Item Value Reference Range Interpretation Comments Monocytes # (test code 0.6 See_Comment [Aut omated message] The = Monocytes #) system which generated this result tra nsmitted reference range : <=0.8. The reference r leo was not used to int erpret this result as normal/abnormal . [facility] CenterYqqstpzECVTSCJBLR0485-97-85 11:21:00 Test Item Value Reference Range Interpretation Comments Eosinophils # (test code 0.1 See_Comment [A utomated message] The = Eosinophils #) system whic h generated this result tra nsmitted reference range : <=0.5. The reference r leo was not used to int erpret this result as normal/abnormal . [facility] CenterVlwxgtkDVGOYVXXZK9024-65-25 11:21:00 Test Item Value Reference Range Interpretation Comments Lymphocytes # (test code = Lymphocytes 2.5 1.0-5.5 #) [facility] CenterBcbzjicABSIPNPSAY6076-82-91 11:21:00 Test Item Value Reference Range Interpretation Comments Segs (test code = Segs) 63.3 45.0-75.0 [facility] CenterXdgrjqxWMPVEQCVYM5543-20-92 11:21:00 Test Item Value Reference Range Interpretation Comments Segs-Bands # (test code = Segs-Bands #) 5.6 1.5-8.1 [facility] CenterTjkozbrYOYRVVNWBB1978-54-96 11:21:00 Test Item Value Reference Range Interpretation Comments Basophils (test code = 0.0 See_Comment [Aut omated message] The Basophils) system which ge nerated this result tra nsmitted reference range : <=1.0. The reference r leo was not used to int erpret this result as normal/abnormal . [facility] CenterNuofjnyAEUTOYGGAS8220-51-16 11:21:00 Test Item Value Reference Range Interpretation Comments Eosinophils (test code = 0.9 See_Comment [A utomated message] The Eosinophils) system which ge nerated this result tra nsmitted reference range : <=4.0. The reference r leo was not used to int erpret this result as normal/abnormal . [facility] CenterLawaefwRWKDYKNVAE1302-95-43 11:21:00 Test Item Value Reference Range Interpretation Comments Monocytes (test code = Monocytes) 7.0 2.0-12.0 [facility] CenterHvlxkivTXDCZOBZRY1260-48-24 11:21:00 Test Item Value Reference Range Interpretation Comments Lymphocytes (test code = Lymphocytes) 28.8 20.0-40.0 [facility] CenterZuabfybVQCQIMGDSZ1374-22-25 11:21:00 Test Item Value Reference Range Interpretation Comments WBC (test code = WBC) 8.8 3.7-10.4 [facility] CenterXeokafcNRVUHWSNKW5078-58-54 11:21:00 Test Item Value Reference Range Interpretation Comments RBC (test code = RBC) 5.19 4.20-5.40 [facility] CenterLszsspcHFOTBHLOOG0543-98-12 11:21:00 Test Item Value Reference Range Interpretation Comments Hgb (test code = Hgb) 14.4 12.0-16.0 [facility] CenterClitnjfDCLUXAOPMN3586-93-42 11:21:00 Test Item Value Reference Range Interpretation Comments Hct (test code = Hct) 43.1 36.0-48.0 [facility] CenterTopwmrmOGACWRXKZU7769-76-26 11:21:00 Test Item Value Reference Range Interpretation Comments MCV (test code = MCV) 83.1 80.0-98.0 [facility] CenterHtxhiacMEXBFCWSAX7254-07-99 11:21:00 Test Item Value Reference Range Interpretation Comments MCH (test code = MCH) 27.8 pg 27.0-31.0 [facility] CenterMooecdqTFQCKECMXH0504-84-46 11:21:00 Test Item Value Reference Range Interpretation Comments RDW (test code = RDW) 13.1 11.5-14.5 [facility] CenterCokzzstJIUPWWNEEC4384-48-28 11:21:00 Test Item Value Reference Range Interpretation Comments MCHC (test code = MCHC) 33.5 32.0-36.0 [facility] CenterLuvtjzvBDSBWDTCAD3771-85-48 11:21:00 Test Item Value Reference Range Interpretation Comments Platelet (test code = Platelet) 201 133-450 [facility] CenterVykjsyaLXITWONUHY9560-39-24 11:21:00 Test Item Value Reference Range Interpretation Comments MPV (test code = MPV) 10.4 7.4-10.4 [facility] HospitalHigjqkoHEHECGXGGX5421-32-84 04:48:55 Test Item Value Reference Range Interpretation Comments UA Holman Yeast (test code = UA Occasional /HPF A Holman Yeast) [facility] HospitalQmawfnkRSZRRIOCTD3842-97-04 04:48:55 Test Item Value Reference Range Interpretation Comments UA Mucus (test code = UA Mucus) Few /LPF N [facility] HospitalGrkmmllMZLMSWWSXW7155-22-81 04:48:55 Test Item Value Reference Range Interpretation Comments UA Sq Epi (test code = UA Sq Moderate /LPF A Epi) [facility] HospitalFseixrmPUIMFNXURO9315-65-89 04:48:55 Test Item Value Reference Range Interpretation Comments Micro? (test code = Performed (04/14/2013 N Micro?) 23:48:55) [facility] HospitalShyvamaLIWILEVICE7766-59-88 04:48:55 Test Item Value Reference Range Interpretation Comments UA WBC (test code = UA WBC) 0-2 /HPF N [facility] HospitalNxywbaiKJFIPMBUCD4632-52-88 04:48:55 Test Item Value Reference Range Interpretation Comments UA Bacteria (test code = UA Occasional /HPF N Bacteria) [facility] HospitalAzxavapRMHVSRVFEN9758-42-40 04:48:55 Test Item Value Reference Range Interpretation Comments UA Glucose (test code = UA Glucose) 500 mg/dL A [facility] HospitalWqrqwyyAADOAXNMIL9387-81-24 04:48:55 Test Item Value Reference Range Interpretation Comments UA Bili (test code = Negative *NA*(04/14/2013 UA Bili) 23:48:55) [facility] HospitalXlltcjeWRMTXFMMQW8519-14-95 04:48:55 Test Item Value Reference Range Interpretation Comments UA Ketones (test code = Trace A UA Ketones) *ABN*(04/14/2013 23:48:55) [facility] HospitalJefgmalLIAAAHADLB5541-10-76 04:48:55 Test Item Value Reference Range Interpretation Comments UA Blood (test code = Negative (04/14/2013 N UA Blood) 23:48:55) [facility] HospitalCssipisCCRTTSEMYD1476-41-58 04:48:55 Test Item Value Reference Range Interpretation Comments UA Urobilinogen (test code = UA 0.2 0.1-1.0 N Urobilinogen) [facility] HospitalYdkctfmXHGEMCREZI4028-63-51 04:48:55 Test Item Value Reference Range Interpretation Comments UA Nitrite (test code Negative (04/14/2013 N = UA Nitrite) 23:48:55) [facility] HospitalLrapndxETJDSPGLZP6693-65-13 04:48:55 Test Item Value Reference Range Interpretation Comments UA Leuk Est (test Negative (04/14/2013 N code = UA Leuk Est) 23:48:55) [facility] HospitalJockeacITDUCVYOXD6307-51-57 04:48:55 Test Item Value Reference Range Interpretation Comments UA Turbidity (test code = Clear (04/14/2013 N UA Turbidity) 23:48:55) [facility] HospitalNesozxvQVJNLPUUKQ7107-07-33 04:48:55 Test Item Value Reference Range Interpretation Comments UA Color (test code = Yellow *NA*(04/14/2013 UA Color) 23:48:55) [facility] HospitalNbpunxrKXHZLSBAWH0431-38-05 04:48:55 Test Item Value Reference Range Interpretation Comments UA pH (test code = UA pH) 7.0 1 5.0-8.[address] [facility] HospitalMpzojgqFXIEQLZRPD0517-72-43 04:48:55 Test Item Value Reference Range Interpretation Comments UA Spec Grav (test code = UA Spec 1.[address]) [facility] HospitalPjnnpguJUOQEALZFZ0485-02-12 04:48:55 Test Item Value Reference Range Interpretation Comments UA Protein (test code = Trace A UA Protein) *ABN*(04/14/2013 23:48:55) [facility]PrevumoOZQYWBAKN6351-70-59 04:28:00 Test Item Value Reference Range Interpretation Comments S Preg (test code = S Negative *NA*(04/14/2013 Preg) 23:28:00) [facility]cosHxmtgznBCIKYXYFU9410-36-58 04:28:00 Test Item Value Reference Range Interpretation Comments Lipase Lvl (test code = Lipase Lvl) 233 73-393 N [facility]cosOrrqiexYAMVSQEWE0621-08-94 04:28:00 Test Item Value Reference Range Interpretation Comments Globulin (test code = Globulin) 4.1 2.0-4.0 H [facility]cosNuibnckDWOPIEEDO8983-02-48 04:28:00 Test Item Value Reference Range Interpretation Comments AGAP (test code = AGAP) 10.5 10.0-20.0 N [facility]cosVhzgzzkNWPXTVBNA0615-49-84 04:28:00 Test Item Value Reference Range Interpretation Comments B/C Ratio (test code = B/C Ratio) 6 6-25 N [facility]cosKpllpgxFERSZPRBV6298-32-12 04:28:00 Test Item Value Reference Range Interpretation Comments A/G Ratio (test code = A/G Ratio) 0.7 0.7-1.6 N [facility]cosYsyvbsvJXREWKUVT7253-90-67 04:28:00 Test Item Value Reference Range Interpretation Comments eGFR (test code = eGFR) 130 [facility]cosZcxiifrYQUANDPDB2545-23-84 04:28:00 Test Item Value Reference Range Interpretation Comments Albumin Lvl (test code = Albumin Lvl) 2.9 3.5-5.0 L [facility]cosYizzmzkQAEUBOYGR4066-66-15 04:28:00 Test Item Value Reference Range Interpretation Comments ASPARTATE TRANSAMINASE 20 See_Comment N [Aut omated message] (test code = ASPARTATE The s ystem which TRANSAMINASE) generated this result transmitted ref erence range: <=37. Th e reference range was not used to interpr et this result as normal/abnormal . [facility]cosPpldsnuEOXVWBEZN7349-37-55 04:28:00 Test Item Value Reference Range Interpretation Comments Bili Total (test code = Bili Total) 0.5 0.2-1.3 N [facility]cosFkypnjcNXEDAYIGJ7639-60-30 04:28:00 Test Item Value Reference Range Interpretation Comments Alk Phos (test code = Alk Phos) 89 39-136 N [facility]cosFxkjccxKLCRQDFBH9453-59-04 04:28:00 Test Item Value Reference Range Interpretation Comments ALANINE AMINOTRANSFERASE 11 See_Comment N [A utomated message] (test code = ALANINE The sys tem which AMINOTRANSFERASE) generated this result transmitted ref erence range: <=65. Th e reference range was not used to int erpret this result as normal/abnormal . [facility]cosArbvxfbJNWFEPGRH5533-71-30 04:28:00 Test Item Value Reference Range Interpretation Comments Creatinine Lvl (test code = Creatinine 0.5 0.5-1.4 N Lvl) [facility]cosGqjruqwVDMTSCXEI7302-34-00 04:28:00 Test Item Value Reference Range Interpretation Comments BUN (test code = BUN) 3 7-22 L [facility]cosGrqqobeCGFKSNOMG4370-24-58 04:28:00 Test Item Value Reference Range Interpretation Comments Glucose Lvl (test code = Glucose Lvl) 255 70-99 H [facility]cosJpdkyxwBFCCVVCDC3467-31-62 04:28:00 Test Item Value Reference Range Interpretation Comments Total Protein (test code = Total 7.0 6.4-8.4 N Protein) [facility]cosAtjxxluEQPBXFKTU8478-08-76 04:28:00 Test Item Value Reference Range Interpretation Comments Calcium Lvl (test code = Calcium Lvl) 8.7 8.5-10.5 N [facility]cosXfemneaWQGBDHNVL3636-94-15 04:28:00 Test Item Value Reference Range Interpretation Comments CO2 (test code = CO2) 29 24-32 N [facility]cosWyzchgtOLADAGDAK3841-01-01 04:28:00 Test Item Value Reference Range Interpretation Comments Chloride Lvl (test code = Chloride Lvl) 104 95-109 N [facility] MarcosRcwtaysVVEEKOFAQ2558-05-43 04:28:00 Test Item Value Reference Range Interpretation Comments Potassium Lvl (test code = Potassium 3.5 3.5-5.1 N Lvl) [facility]cosPjxcwjgPCZXJSLML2358-23-28 04:28:00 Test Item Value Reference Range Interpretation Comments Sodium Lvl (test code = Sodium Lvl) 140 135-145 N [facility] CenterQbsslqvFDANPPXCSM2048-54-10 04:28:00 Test Item Value Reference Range Interpretation Comments PROTIME (test code = PROTIME) 12.1 s 12.0-14.7 N [facility] CenterCelajqoMDOFRSXYEX8479-54-53 04:28:00 Test Item Value Reference Range Interpretation Comments aPTT (test code = aPTT) 39.0 s 22.9-35.8 H [facility] CenterGjygexqMUOFCDOROX5550-44-41 04:28:00 Test Item Value Reference Range Interpretation Comments INR (test code = INR) 0.90 0.85-1.17 N [facility] CenterBdxsvoyGAMMCFWPEY5915-89-52 04:28:00 Test Item Value Reference Range Interpretation Comments MCH (test code = MCH) 29.4 pg 27.0-31.0 N [facility] CenterFksxxkbRIFKFKTPVY4488-14-42 04:28:00 Test Item Value Reference Range Interpretation Comments MCV (test code = MCV) 86.1 81.0-99.0 N [facility] CenterMkueqzcURQNUMRCKL7266-74-74 04:28:00 Test Item Value Reference Range Interpretation Comments Hct (test code = Hct) 29.4 36.0-48.0 L [facility] CenterLlpvpsgUTNCXMOTSF9183-89-51 04:28:00 Test Item Value Reference Range Interpretation Comments RDW (test code = RDW) 14.0 11.5-14.5 N [facility] CenterZrsydezHMBMOEKSCG8587-89-76 04:28:00 Test Item Value Reference Range Interpretation Comments WBC X 10x3 (test code = WBC X 10x3) 6.2 3.7-10.4 N [facility] CenterOfpwyzlBHXHDSLARF1567-80-27 04:28:00 Test Item Value Reference Range Interpretation Comments Platelet (test code = Platelet) 178 133-450 N [facility] CenterIvgkjruXPRAGCGIBZ3775-45-52 04:28:00 Test Item Value Reference Range Interpretation Comments MCHC (test code = MCHC) 34.1 32.0-36.0 N [facility] CenterFljbqcrVYWTGLGERZ6099-00-79 04:28:00 Test Item Value Reference Range Interpretation Comments RBC X 10x6 (test code = RBC X 10x6) 3.41 4.20-5.40 L [facility] CenterJmswjihMPXEEMKZWC4995-15-57 04:28:00 Test Item Value Reference Range Interpretation Comments Hgb (test code = Hgb) 10.0 12.0-16.0 L [facility] CenterMgvfwemCSENBQXDNW9376-47-82 04:28:00 Test Item Value Reference Range Interpretation Comments MPV (test code = MPV) 10.1 7.4-10.4 N [facility] CenterEhsofnrRIWQRPXTZN2771-11-26 04:28:00 Test Item Value Reference Range Interpretation Comments Segs-Bands # (test code = Segs-Bands #) 4.4 1.5-8.1 N [facility] CenterFnprjhwTHIMOZYUCO6271-32-03 04:28:00 Test Item Value Reference Range Interpretation Comments Basophils (test code = 0.7 See_Comment N [Aut omated message] The Basophils) system which ge nerated this result tra nsmitted reference range : <=1.0. The reference r leo was not used to int erpret this result as normal/abnormal . [facility] CenterNwjqpraIUCYFRPIFU5854-19-87 04:28:00 Test Item Value Reference Range Interpretation Comments Segs (test code = Segs) 70.7 45.0-75.0 N [facility] CenterRkootuoFZSYTGFEPV1564-88-07 04:28:00 Test Item Value Reference Range Interpretation Comments Monocytes # (test code 0.3 See_Comment N [Aut omated message] The = Monocytes #) system which generated this result tra nsmitted reference range : <=0.8. The reference r leo was not used to int erpret this result as normal/abnormal . [facility]PnmjnyyGVTDZKFMRU9945-85-27 04:28:00 Test Item Value Reference Range Interpretation Comments Lymphocytes # (test code = Lymphocytes 1.2 1.0-5.5 N #) [facility] CenterFeqgfmzISHUQHBIMS3406-20-78 04:28:00 Test Item Value Reference Range Interpretation Comments Monocytes (test code = Monocytes) 4.5 2.0-12.0 N [facility] CenterUmdrxmjLPSFOKTTGM4657-22-70 04:28:00 Test Item Value Reference Range Interpretation Comments Eosinophils (test code = 4.1 See_Comment H [A utomated message] The Eosinophils) system which ge nerated this result tra nsmitted reference range : <=4.0. The reference r leo was not used to int erpret this result as normal/abnormal . [facility] CenterHzfjurrYYMFYLKRUU7349-37-77 04:28:00 Test Item Value Reference Range Interpretation Comments Lymphocytes (test code = Lymphocytes) 20.0 20.0-40.0 N [facility] CenterUzzjocoFDDNUHNLIL2400-71-99 04:28:00 Test Item Value Reference Range Interpretation Comments Basophils # (test code 0.0 See_Comment N [Aut omated message] The = Basophils #) system which generated this result tra nsmitted reference range : <=0.2. The reference r leo was not used to int erpret this result as normal/abnormal . [facility] CenterPrnoqdfNXPWIAEZEI0772-92-76 04:28:00 Test Item Value Reference Range Interpretation Comments Eosinophils # (test code 0.3 See_Comment N [A utomated message] The = Eosinophils #) system whic h generated this result tra nsmitted reference range : <=0.5. The reference r leo was not used to int erpret this result as normal/abnormal . [facility] GLUCOSE [id number] 01:12:00 Test Item Value Reference Range Interpretation Comments Gluc POC Lifscn (test code = Gluc POC 260 70-99 H Lifscn) [facility] [id number] 01:12:00 Test Item Value Reference Range Interpretation Comments Comment1 (test code = Comment1) [facility]MgkuwkyBLGYNQIUQW3937-13-82 23:40:00 Test Item Value Reference Range Interpretation Comments UA Protein (test code = Trace A UA Protein) *ABN*(03/14/2012 18:40:00) [facility]ZkbznljWFEKPPUIGE8839-08-39 23:40:00 Test Item Value Reference Range Interpretation Comments UA pH (test code = UA pH) 6.0 1 5.0-8.0 N [facility] HospitalDtyiqsaRGRVNBMOIT9980-40-26 23:40:00 Test Item Value Reference Range Interpretation Comments UA Ketones (test code = >=80 mg/dL UA Ketones) *NA*(03/14/2012 18:40:00) [facility] HospitalGajsielLNOAFOGFZP8548-09-55 23:40:00 Test Item Value Reference Range Interpretation Comments UA Glucose (test code = >=1000 mg/dL A UA Glucose) *ABN*(03/14/2012 18:40:00) [facility] HospitalPdlpxvwQSITDNSPJF8957-05-53 23:40:00 Test Item Value Reference Range Interpretation Comments UA Blood (test code = Negative (03/14/2012 N UA Blood) 18:40:00) [facility] HospitalUqldiuqBXFOWHGSWJ9480-84-65 23:40:00 Test Item Value Reference Range Interpretation Comments UA Nitrite (test code Negative (03/14/2012 N = UA Nitrite) 18:40:00) [facility] HospitalLoolkpbGMRWCQVBYX1557-24-68 23:40:00 Test Item Value Reference Range Interpretation Comments UA Urobilinogen (test code = UA 0.2 0.1-1.0 N Urobilinogen) [facility] HospitalVgvfmpnBKDYMQLUQF6559-02-48 23:40:00 Test Item Value Reference Range Interpretation Comments UA Leuk Est (test Negative (03/14/2012 N code = UA Leuk Est) 18:40:00) [facility] HospitalOaamnghURYFBMCKLT2637-24-71 23:40:00 Test Item Value Reference Range Interpretation Comments UA Bili (test code = Negative *NA*(03/14/2012 UA Bili) 18:40:00) [facility] HospitalIawldrnXPNPKUSGIB3454-62-75 23:40:00 Test Item Value Reference Range Interpretation Comments UA Turbidity (test code = Clear (03/14/2012 N UA Turbidity) 18:40:00) [facility] HospitalOvrqzsiKBXLKLBRWT9795-37-32 23:40:00 Test Item Value Reference Range Interpretation Comments UA Color (test code = Yellow *NA*(03/14/2012 UA Color) 18:40:00) [facility] HospitalUbmhznzOVIYCPXPMH4086-77-29 23:40:00 Test Item Value Reference Range Interpretation Comments UA Spec Grav (test >=1.030 A code = UA Spec Grav) *ABN*(03/14/2012 18:40:00) [facility] HospitalBrilqmtMCTUPQMSSO5880-02-49 23:40:00 Test Item Value Reference Range Interpretation Comments UA Sq Epi (test code Occasional /LPF N = UA Sq Epi) (03/14/2012 18:40:00) [facility] HospitalLwvyzcpKVYFBWGJIT5497-24-61 23:40:00 Test Item Value Reference Range Interpretation Comments UA WBC (test code = UA 3-5 /HPF (03/14/2012 N WBC) 18:40:00) [facility] HospitalJwjpsviMGZMZUPINI2182-30-84 23:40:00 Test Item Value Reference Range Interpretation Comments UA Bacteria (test code Occasional /HPF N = UA Bacteria) (03/14/2012 18:40:00) [facility]IidocggNAJOCILDH2667-70-43 22:50:00 Test Item Value Reference Range Interpretation Comments S Preg (test code = S Negative *NA*(03/14/2012 Preg) 17:50:00) [facility]cosOecwqswNGLFVHVQP9627-18-77 22:50:00 Test Item Value Reference Range Interpretation Comments Lipase Lvl (test code = Lipase Lvl) 45 73-393 L [facility]cosGncurayBDVVBUVWZ2911-30-85 22:50:00 Test Item Value Reference Range Interpretation Comments A/G Ratio (test code = A/G Ratio) 1.2 0.7-1.6 N [facility]cosYosptszTVQFDJWQJ7061-60-90 22:50:00 Test Item Value Reference Range Interpretation Comments Globulin (test code = Globulin) 3.8 2.0-4.0 N [facility]cosNdgslbxYRPNQGCGG8133-16-75 22:50:00 Test Item Value Reference Range Interpretation Comments B/C Ratio (test code = B/C Ratio) 21 6-25 N [facility]cosDytjettKHDTSNHKL5081-06-08 22:50:00 Test Item Value Reference Range Interpretation Comments AGAP (test code = AGAP) 16.8 10.0-20.0 N [facility]cosRkbdiswBUPQTUKSP7756-64-97 22:50:00 Test Item Value Reference Range Interpretation Comments Bili Total (test code = Bili Total) 1.1 0.2-1.3 N [facility]cosThjnowoRQRSFJJNO9020-31-94 22:50:00 Test Item Value Reference Range Interpretation Comments Total Protein (test code = Total 8.2 6.4-8.4 N Protein) [facility]cosDzaudsrIEOGOQXJR4916-07-97 22:50:00 Test Item Value Reference Range Interpretation Comments Potassium Lvl (test code = Potassium 3.8 3.5-5.1 N Lvl) [facility]cosBqjvtzzKGIOAHFZS0409-82-46 22:50:00 Test Item Value Reference Range Interpretation Comments Creatinine Lvl (test code = Creatinine 0.7 0.5-1.4 N Lvl) [facility]cosKxwyvwkCECQSIIWN3428-35-99 22:50:00 Test Item Value Reference Range Interpretation Comments Sodium Lvl (test code = Sodium Lvl) 139 135-145 N [facility]cosVnbbbmwREGWRBJYS1227-52-08 22:50:00 Test Item Value Reference Range Interpretation Comments Chloride Lvl (test code = Chloride Lvl) 99 95-109 N [facility]cosAeftwwgCYVKQFXTA6303-60-48 22:50:00 Test Item Value Reference Range Interpretation Comments CO2 (test code = CO2) 27 24-32 N [facility]cosMrcvwokQYLBCHJXE0896-27-93 22:50:00 Test Item Value Reference Range Interpretation Comments Glucose Lvl (test code = Glucose Lvl) 301 70-99 H [facility]cosCifhrxvJRYCMFVJV6434-46-95 22:50:00 Test Item Value Reference Range Interpretation Comments BUN (test code = BUN) 15 7-22 N [facility]cosNkedmneSCALAPOZT0381-82-61 22:50:00 Test Item Value Reference Range Interpretation Comments ALT (test code = ALT) 24 See_Comment N [Auto mated message] The system which ge nerated this result transmit rohit reference range : <=65. The reference range was not used to interpr et this result as reji l/abnormal. [facility]cosPfehqtiXITGFOSEM3660-23-44 22:50:00 Test Item Value Reference Range Interpretation Comments AST (test code = AST) 20 See_Comment N [Auto mated message] The system which ge nerated this result transmit rohit reference range : <=37. The reference range was not used to interpr et this result as reji l/abnormal. [facility]cosAvbenpaESRBSECYR8726-28-03 22:50:00 Test Item Value Reference Range Interpretation Comments Alk Phos (test code = Alk Phos) 67 39-136 N [facility]cosQfneccfZZUIWVZVU3188-43-21 22:50:00 Test Item Value Reference Range Interpretation Comments Albumin Lvl (test code = Albumin Lvl) 4.4 3.5-5.0 N [facility]cosVbgclexQDFOLEEIL7825-89-07 22:50:00 Test Item Value Reference Range Interpretation Comments Calcium Lvl (test code = Calcium Lvl) 9.9 8.5-10.5 N [facility] CenterIttnyjhHTFNZKRQBK1233-44-19 22:50:00 Test Item Value Reference Range Interpretation Comments MPV (test code = MPV) 11.8 7.4-10.4 H [facility] CenterHbghhgyNKLAGLXIPA0486-30-35 22:50:00 Test Item Value Reference Range Interpretation Comments MCHC (test code = MCHC) 35.9 32.0-36.0 N [facility] CenterVyugoavDZKCRXMHYQ9643-58-61 22:50:00 Test Item Value Reference Range Interpretation Comments MCH (test code = MCH) 31.2 pg 27.0-31.0 H [facility] CenterUlkhyvwTCFMEVWTHB6569-24-28 22:50:00 Test Item Value Reference Range Interpretation Comments Platelet (test code = Platelet) 189 133-450 N [facility] CenterDsxkwxgQZOJHSCBMX0279-82-38 22:50:00 Test Item Value Reference Range Interpretation Comments RDW (test code = RDW) 13.1 11.5-14.5 N [facility] CenterDwtaojcJIYTPFFUAT3122-77-62 22:50:00 Test Item Value Reference Range Interpretation Comments Hct (test code = Hct) 40.7 36.0-48.0 N [facility] CenterKioiwlfDGHVEBTYYR4136-35-09 22:50:00 Test Item Value Reference Range Interpretation Comments Hgb (test code = Hgb) 14.6 12.0-16.0 N [facility] CenterJdpjoicAKVQILHPMM4158-10-29 22:50:00 Test Item Value Reference Range Interpretation Comments MCV (test code = MCV) 87.0 81.0-99.0 N [facility] CenterLwnhpxwWSYNNNLRXZ5621-91-53 22:50:00 Test Item Value Reference Range Interpretation Comments WBC (test code = WBC) 11.7 3.7-10.4 H [facility] CenterJfzzvvmPILOSBGYEK3408-73-48 22:50:00 Test Item Value Reference Range Interpretation Comments RBC (test code = RBC) 4.68 4.20-5.40 N [facility] CenterClpffvfYYEDXJTFEG8146-43-06 22:50:00 Test Item Value Reference Range Interpretation Comments Basophils # (test code 0.0 See_Comment N [Aut omated message] The = Basophils #) system which generated this result tra nsmitted reference range : <=0.2. The reference r leo was not used to int erpret this result as normal/abnormal . [facility] CenterWgoirjmSKOPHTJYMM0428-30-47 22:50:00 Test Item Value Reference Range Interpretation Comments Basophils (test code = 0.2 See_Comment N [Aut omated message] The Basophils) system which ge nerated this result tra nsmitted reference range : <=1.0. The reference r leo was not used to int erpret this result as normal/abnormal . [facility] CenterTjllwigSCDQCXRCNW4735-05-36 22:50:00 Test Item Value Reference Range Interpretation Comments Eosinophils # (test code 0.0 See_Comment N [A utomated message] The = Eosinophils #) system whic h generated this result tra nsmitted reference range : <=0.5. The reference r leo was not used to int erpret this result as normal/abnormal . [facility] CenterXboglydXXVABUJTTS5264-57-98 22:50:00 Test Item Value Reference Range Interpretation Comments Monocytes # (test code 0.4 See_Comment N [Aut omated message] The = Monocytes #) system which generated this result tra nsmitted reference range : <=0.8. The reference r leo was not used to int erpret this result as normal/abnormal . [facility] CenterIohcovfDRUSNAOZSK4840-59-66 22:50:00 Test Item Value Reference Range Interpretation Comments Segs-Bands # (test code = Segs-Bands #) 10.6 1.5-8.1 H [facility] CenterWwmeubtMBXIQTQTKN9553-68-43 22:50:00 Test Item Value Reference Range Interpretation Comments Lymphocytes # (test code = Lymphocytes 0.7 1.0-5.5 L #) [facility] CenterOmtbyntXJHXQGAJCG7410-08-54 22:50:00 Test Item Value Reference Range Interpretation Comments Monocytes (test code = Monocytes) 3.4 2.0-12.0 N [facility] CenterZwprcsfCNJOSSLDPX2558-79-39 22:50:00 Test Item Value Reference Range Interpretation Comments Plt Morph (test code = Normal (03/14/2012 N Plt Morph) 17:50:00) [facility] CenterRijqybqNXTQNRIIQO9909-23-29 22:50:00 Test Item Value Reference Range Interpretation Comments Lymphocytes (test code = Lymphocytes) 6.0 20.0-40.0 L [facility] CenterYnuhbvrSCEJUWBRAG3881-46-48 22:50:00 Test Item Value Reference Range Interpretation Comments Eosinophils (test code = 0.0 See_Comment N [A utomated message] The Eosinophils) system which ge nerated this result tra nsmitted reference range : <=4.0. The reference r leo was not used to int erpret this result as normal/abnormal . [facility] CenterVegbmlrNINVHRNPBP6797-94-99 22:50:00 Test Item Value Reference Range Interpretation Comments Segs (test code = Segs) 90.4 45.0-75.0 H [facility] CenterBsqvkkhURXKTYATVS4094-52-83 22:50:00 Test Item Value Reference Range Interpretation Comments RBC Morph (test code = Normal (03/14/2012 N RBC Morph) 17:50:00) [facility] GLUCOSE [id number] 23:43:00 Test Item Value Reference Range Interpretation Comments Gluc POC Lifscn (test code = Gluc POC 167 70-99 H Lifscn) [facility] GLUCOSE [id number] 23:43:00 Test Item Value Reference Range Interpretation Comments Comment1 (test code = Comment1) Notify RN/MD [facility] GLUCOSE KLLPUSX8524-98-57 23:43:00 Test Item Value Reference Range Interpretation Comments Comment2 (test code = Comment2) Sliding Scale [facility] GLUCOSE QSKCTBV9135-05-41 17:40:00 Test Item Value Reference Range Interpretation Comments Gluc POC Lifscn (test code = Gluc POC 189 70-99 H Lifscn) [facility] GLUCOSE [id number] 17:40:00 Test Item Value Reference Range Interpretation Comments Comment1 (test code = Comment1) Notify RN/ [facility] GLUCOSE GLINBQL1785-72-30 17:40:00 Test Item Value Reference Range Interpretation Comments Comment2 (test code = Comment2) Sliding Scale [facility] GLUCOSE [id number] 13:34:00 Test Item Value Reference Range Interpretation Comments Comment2 (test code = Comment2) Sliding Scale [facility] GLUCOSE [id number] 13:34:00 Test Item Value Reference Range Interpretation Comments Gluc POC Lifscn (test code = Gluc POC 110 70-99 H Lifscn) [facility] GLUCOSE [id number] 13:34:00 Test Item Value Reference Range Interpretation Comments Comment1 (test code = Comment1) [facility]/ [facility]VlyvfvzYAEGIZMQB2849-54-48 00:00:00 Test Item Value Reference Range Interpretation Comments U Preg (test code = U Negative (11/28/2011 N Preg) 19:00:00) [facility] LakeJtpefrnNRBQEZIMED9971-32-50 00:00:00 Test Item Value Reference Range Interpretation Comments Micro? (test code = Performed (11/28/2011 N Micro?) 19:00:00) [facility]PqabuacHNMRODAQFI2447-79-58 00:00:00 Test Item Value Reference Range Interpretation Comments UA Sq Epi (test code Occasional /LPF N = UA Sq Epi) (11/28/2011 19:00:00) [facility] HospitalPlahrycUFQHHDNAKB2662-79-68 00:00:00 Test Item Value Reference Range Interpretation Comments UA RBC (test None Seen See_Comment N [Automated mes pastor] code = UA RBC) (11/28/2011 The system wh ich 19:00:00) generated this result transmitted ref erence range: <=2. The reference range was not used to int erpret this result as normal/abnormal . [facility] HospitalRzsstntTMELHDUEHW7012-51-26 00:00:00 Test Item Value Reference Range Interpretation Comments UA WBC (test code Occasional See_Comment [Automate d message] The = UA WBC) system which ge nerated this result tra nsmitted reference range : <=5. The reference range was not used to interpr et this result as normal/abnormal . [facility] HospitalGqvcqwmAECRBNCZQG1442-75-20 00:00:00 Test Item Value Reference Range Interpretation Comments UA Protein (test code Negative mg/dL N = UA Protein) (11/28/2011 19:00:00) [facility] HospitalJgvankoLYMVKSVOAR3022-16-78 00:00:00 Test Item Value Reference Range Interpretation Comments UA pH (test code = UA pH) 7.0 1 5.0-8.[address] [facility] HospitalWtoxsraYONCUSYOHS5865-11-80 00:00:00 Test Item Value Reference Range Interpretation Comments UA Spec Grav (test code = UA Spec 1.020 [address] [facility] HospitalBbyxqvdDROYKXJNJT4377-77-74 00:00:00 Test Item Value Reference Range Interpretation Comments UA Turbidity (test code = Clear (11/28/2011 N UA Turbidity) 19:00:00) [facility] HospitalLdtqxfnSHBAOIVWII7839-62-34 00:00:00 Test Item Value Reference Range Interpretation Comments UA Color (test code = Yellow *NA*(11/28/2011 UA Color) 19:00:00) [facility] HospitalVkrvmfaXBUBLNYYDI6142-26-43 00:00:00 Test Item Value Reference Range Interpretation Comments UA Urobilinogen (test code = UA 0.2 0.1-1.0 N Urobilinogen) [facility] HospitalMbdnqalMJYLDEKHLH9986-63-76 00:00:00 Test Item Value Reference Range Interpretation Comments UA Blood (test code = Negative (11/28/2011 N UA Blood) 19:00:00) [facility] HospitalOfghiebHHMLOHWRVY5383-64-64 00:00:00 Test Item Value Reference Range Interpretation Comments UA Bili (test code = Negative *NA*(11/28/2011 UA Bili) 19:00:00) [facility] HospitalJlhhhbdHICTDURMFJ8291-86-64 00:00:00 Test Item Value Reference Range Interpretation Comments UA Ketones (test code = >=80 mg/dL A UA Ketones) *ABN*(11/28/2011 19:00:00) [facility] HospitalBovgbxoXXBVZSWFNJ3723-83-35 00:00:00 Test Item Value Reference Range Interpretation Comments UA Glucose (test code = >=1000 mg/dL A UA Glucose) *ABN*(11/28/2011 19:00:00) [facility] HospitalEydbkuwIXJNKXCNXG0806-10-62 00:00:00 Test Item Value Reference Range Interpretation Comments UA Nitrite (test code Negative (11/28/2011 N = UA Nitrite) 19:00:00) [facility] LakeGlayxsnOSQLTFQWWW7872-62-07 00:00:00 Test Item Value Reference Range Interpretation Comments UA Leuk Est (test Negative (11/28/2011 N code = UA Leuk Est) 19:00:00) [facility] HospitalQinhwcyDUVIRMQPS0579-48-20 20:41:00 Test Item Value Reference Range Interpretation Comments pO2 Roberth (test code = pO2 Roberth) 60 20-49 H [facility]cosKujbvorQKGHFHXVW7950-75-67 20:41:00 Test Item Value Reference Range Interpretation Comments pCO2 Roberth (test code = pCO2 Roberth) 41 38-52 N [facility]cosFpcioghFRMMCFWNJ9655-58-93 20:41:00 Test Item Value Reference Range Interpretation Comments pH Roberth (test code = pH Roberth) 7.45 7.28-7.42 H [facility]cosJnilchpBYWIIGVJV3660-07-71 20:41:00 Test Item Value Reference Range Interpretation Comments Temp Roberth (test code = Temp Roberth) 37.0 [facility]cosSipehpkLQIJIXMMP3968-58-36 20:41:00 Test Item Value Reference Range Interpretation Comments O2 Sat Roberth (test code = O2 Sat Roberth) 92.0 40.0-70.0 H [facility]cosLxfedjsPYTMQNRLC7265-60-41 20:41:00 Test Item Value Reference Range Interpretation Comments BE Roberth (test code = 4 See_Comment H [Automa rohit message] The BE Roberth) system which ge nerated this result transmit rohit reference range : <=2. The reference range was not used to interpr et this result as reji l/abnormal. [facility]cosBewqzklEUHDNXKSF9577-25-01 20:41:00 Test Item Value Reference Range Interpretation Comments HCO3 Roberth (test code = HCO3 Roberth) 28.5 22.0-26.0 H [facility]cosPudbxuiUXHAUHVGH0820-03-91 20:00:00 Test Item Value Reference Range Interpretation Comments Lactic Acid Lvl (test code = Lactic 1.6 0.5-2.2 N Acid Lvl) [facility]cosQeixzvtBEZGOUAMO6042-89-04 20:00:00 Test Item Value Reference Range Interpretation Comments Lipase Lvl (test code = Lipase Lvl) 125 73-393 N [facility]cosPnycpqzSYQXTCYPO6553-53-51 20:00:00 Test Item Value Reference Range Interpretation Comments Albumin Lvl (test code = Albumin Lvl) 4.2 3.5-5.0 N [facility]cosOijqfbwHBOVVOADT1050-57-50 20:00:00 Test Item Value Reference Range Interpretation Comments CO2 (test code = CO2) 23 24-32 L [facility]cosAnwgmhgPNFZCTJEI9916-13-62 20:00:00 Test Item Value Reference Range Interpretation Comments Chloride Lvl (test code = Chloride Lvl) 98 95-109 N [facility]cosEvpnotpFPCULCQNF3572-94-28 20:00:00 Test Item Value Reference Range Interpretation Comments Potassium Lvl (test code = Potassium 3.8 3.5-5.1 N Lvl) [facility]cosAcyzdieEOHULPMLW7696-98-89 20:00:00 Test Item Value Reference Range Interpretation Comments Sodium Lvl (test code = Sodium Lvl) 138 135-145 N [facility]cosNqtseipBCUFTEXRZ3848-65-25 20:00:00 Test Item Value Reference Range Interpretation Comments Creatinine Lvl (test code = Creatinine 0.7 0.5-1.4 N Lvl) [facility]cosFzgilgyFNITCQRCK5754-76-13 20:00:00 Test Item Value Reference Range Interpretation Comments BUN (test code = BUN) 9 7-22 N [facility]cosDlxypakCCPWNWWPT1538-61-94 20:00:00 Test Item Value Reference Range Interpretation Comments Glucose Lvl (test code = Glucose Lvl) 269 70-99 H [facility]cosJvvpmspMEQCLHIFO1958-78-12 20:00:00 Test Item Value Reference Range Interpretation Comments B/C Ratio (test code = B/C Ratio) 13 6-25 N [facility] MarcosWheketfIEQHFMUXH4375-97-44 20:00:00 Test Item Value Reference Range Interpretation Comments AGAP (test code = AGAP) 20.8 10.0-20.0 H [facility]cosEfvkwqfWCFBSBKKO9055-38-19 20:00:00 Test Item Value Reference Range Interpretation Comments Calcium Lvl (test code = Calcium Lvl) 9.3 8.5-10.5 N [facility] MarcosCukgyqsSBDXNONTV0050-51-94 20:00:00 Test Item Value Reference Range Interpretation Comments Total Protein (test code = Total 6.7 6.4-8.4 N Protein) [facility] MarcosDbjukquNURLWPFNY5849-96-25 20:00:00 Test Item Value Reference Range Interpretation Comments A/G Ratio (test code = A/G Ratio) 1.7 0.7-1.6 H [facility] MarcosSgzxgpgEHZTJSRGJ3445-19-71 20:00:00 Test Item Value Reference Range Interpretation Comments Globulin (test code = Globulin) 2.5 2.0-4.0 N [facility]cosGgqpcrhHALFZUQOL9694-31-29 20:00:00 Test Item Value Reference Range Interpretation Comments AST (test code = AST) 18 See_Comment N [Auto mated message] The system which ge nerated this result transmit rohit reference range : <=37. The reference range was not used to interpr et this result as reji l/abnormal. [facility] MarcosLynndsiMVHIPXNAA3848-64-25 20:00:00 Test Item Value Reference Range Interpretation Comments Alk Phos (test code = Alk Phos) 62 39-136 N [facility]cosMbxvyceQXDTMVSIW1044-22-58 20:00:00 Test Item Value Reference Range Interpretation Comments ALT (test code = ALT) 32 See_Comment N [Auto mated message] The system which ge nerated this result transmit rohit reference range : <=65. The reference range was not used to interpr et this result as reji l/abnormal. [facility] MarcosNugmvcgGRKZQXAMF6284-70-91 20:00:00 Test Item Value Reference Range Interpretation Comments Bili Total (test code = Bili Total) 0.7 0.2-1.3 N [facility] CenterDndqajjYIGQSGOCJC8573-18-18 20:00:00 Test Item Value Reference Range Interpretation Comments Anisocyte (test code = 1+ *ABN*(11/28/2011 A Anisocyte) 15:00:00) [facility]LloqzvvGCATIQOLFV7153-12-44 20:00:00 Test Item Value Reference Range Interpretation Comments Monocytes # (test code 0.1 See_Comment N [Aut omated message] The = Monocytes #) system which generated this result tra nsmitted reference range : <=0.8. The reference r leo was not used to int erpret this result as normal/abnormal . [facility] CenterHvyixeySGBCQRVTNQ5429-65-25 20:00:00 Test Item Value Reference Range Interpretation Comments Eosinophils # (test code 0.0 See_Comment N [A utomated message] The = Eosinophils #) system whic h generated this result tra nsmitted reference range : <=0.5. The reference r leo was not used to int erpret this result as normal/abnormal . [facility] CenterHrlbrrbKIJJENSUBL3006-00-67 20:00:00 Test Item Value Reference Range Interpretation Comments Basophils # (test code 0.0 See_Comment N [Aut omated message] The = Basophils #) system which generated this result tra nsmitted reference range : <=0.2. The reference r leo was not used to int erpret this result as normal/abnormal . [facility] CenterYxusmmpHYAZAFKELM7393-25-12 20:00:00 Test Item Value Reference Range Interpretation Comments Neut Vac (test code = Slight *ABN*(11/28/2011 A Neut Vac) 15:00:00) [facility] CenterKfgpnunTGWEETVYQV2023-18-73 20:00:00 Test Item Value Reference Range Interpretation Comments Large Plt (test code = Slight *ABN*(11/28/2011 A Large Plt) 15:00:00) [facility] CenterCdkxjdbRXCFPCIEMD6017-94-30 20:00:00 Test Item Value Reference Range Interpretation Comments Segs-Bands # (test code = Segs-Bands #) 5.7 1.5-8.1 N [facility] CenterJidrjljNUMLPPSIHL8726-79-02 20:00:00 Test Item Value Reference Range Interpretation Comments Lymphocytes # (test code = Lymphocytes 0.8 1.0-5.5 L #) [facility] CenterAcklcheJJWHFHVWGW9878-96-12 20:00:00 Test Item Value Reference Range Interpretation Comments Eosinophils (test code = 0.2 See_Comment N [A utomated message] The Eosinophils) system which ge nerated this result tra nsmitted reference range : <=4.0. The reference r leo was not used to int erpret this result as normal/abnormal . [facility] CenterHnjriuuRNWBEEBEYL3535-65-52 20:00:00 Test Item Value Reference Range Interpretation Comments Basophils (test code = 0.0 See_Comment N [Aut omated message] The Basophils) system which ge nerated this result tra nsmitted reference range : <=1.0. The reference r leo was not used to int erpret this result as normal/abnormal . [facility] CenterMlqazbjALRVRTXGEY4383-43-29 20:00:00 Test Item Value Reference Range Interpretation Comments Monocytes (test code = Monocytes) 1.9 2.0-12.0 L [facility] CenterWklqefkEIRVFPRLOD8664-70-36 20:00:00 Test Item Value Reference Range Interpretation Comments Segs (test code = Segs) 86.2 45.0-75.0 H [facility] CenterLpmpyzkUHZXMRSBFB7831-66-12 20:00:00 Test Item Value Reference Range Interpretation Comments Lymphocytes (test code = Lymphocytes) 11.7 20.0-40.0 L [facility] CenterWnourxgGHQILQYCXD0330-85-35 20:00:00 Test Item Value Reference Range Interpretation Comments MPV (test code = MPV) 10.8 7.4-10.4 H [facility] CenterErcxbcnGLOIDUKLKJ9380-90-50 20:00:00 Test Item Value Reference Range Interpretation Comments Platelet (test code = Platelet) 161 133-450 N [facility] CenterGragupbFHWVUWLUBM9157-02-06 20:00:00 Test Item Value Reference Range Interpretation Comments MCHC (test code = MCHC) 35.6 32.0-36.0 N [facility] CenterEunosjyVSAEQAXYXJ1222-04-53 20:00:00 Test Item Value Reference Range Interpretation Comments RDW (test code = RDW) 12.4 11.5-14.5 N [facility] CenterAtfcuhaUYRZEIKAKD8322-78-56 20:00:00 Test Item Value Reference Range Interpretation Comments MCH (test code = MCH) 30.7 pg 27.0-31.0 N [facility] CenterJjeowvjVATXRVTIIT1245-90-63 20:00:00 Test Item Value Reference Range Interpretation Comments MCV (test code = MCV) 86.1 81.0-99.0 N [facility] CenterVuidaeyFXDIJSWHHZ4962-71-89 20:00:00 Test Item Value Reference Range Interpretation Comments Hct (test code = Hct) 33.6 36.0-48.0 L [facility] CenterUcszsxqIMCFTYZKKI6048-12-53 20:00:00 Test Item Value Reference Range Interpretation Comments Hgb (test code = Hgb) 12.0 12.0-16.0 N [facility] CenterBlblqubBFSIZHDHJK2469-07-25 20:00:00 Test Item Value Reference Range Interpretation Comments RBC (test code = RBC) 3.90 4.20-5.40 L [facility] CenterUjwtdavPKIBVEUJSG2158-97-50 20:00:00 Test Item Value Reference Range Interpretation Comments WBC (test code = WBC) 6.6 3.7-10.4 N [facility]LjbspfeLTKBBOLSG5580-55-28 19:51:00 Test Item Value Reference Range Interpretation Comments UDS Note (test code = See Note UDS Note) 5*NA*(11/28/2011 14:51:00) [facility]cosLbvigroWLOFOQDZU0290-47-10 19:51:00 Test Item Value Reference Range Interpretation Comments U Phencyc Scr (test Negative code = U Phencyc Scr) *NA*(11/28/2011 14:51:00) [facility]cosQldnlhyEMWTDMNCB9221-21-68 19:51:00 Test Item Value Reference Range Interpretation Comments U Kelly Scr (test code Negative *NA*(11/28/2011 = U Kelly Scr) 14:51:00) [facility]cosEmakipiVTACGYTXG3681-83-92 19:51:00 Test Item Value Reference Range Interpretation Comments U Amph Scr (test code Negative *NA*(11/28/2011 = U Amph Scr) 14:51:00) [facility]cosDflbrdfJQSLLSWDS3131-29-61 19:51:00 Test Item Value Reference Range Interpretation Comments U Opiate Scr (test Negative code = U Opiate Scr) *NA*(11/28/2011 14:51:00) [facility]cosWqkkegmGBOATUHYS9680-62-36 19:51:00 Test Item Value Reference Range Interpretation Comments U Cocaine Scr (test Negative code = U Cocaine Scr) *NA*(11/28/2011 14:51:00) [facility]cosEsnzherAVQSQTBXR9775-26-68 19:51:00 Test Item Value Reference Range Interpretation Comments U Cannab Scr (test Negative code = U Cannab Scr) *NA*(11/28/2011 14:51:00) [facility]cosJltthjnXYQLDCIRQ1354-03-98 19:51:00 Test Item Value Reference Range Interpretation Comments U Benzodia Scr (test Negative code = U Benzodia Scr) *NA*(11/28/2011 14:51:00) [facility] GLUCOSE PMZJQBP4581-37-00 16:20:00 Test Item Value Reference Range Interpretation Comments Comment1 (test code = Comment1) Ravi MAYS/ [facility] GLUCOSE DEFSTSF3937-71-10 16:20:00 Test Item Value Reference Range Interpretation Comments Gluc POC Lifscn (test code = Gluc POC 328 70-99 H Lifscn) [facility]cosDfokmxxROVYQUPWT8309-43-92 15:30:00 Test Item Value Reference Range Interpretation Comments U Preg (test code = U Negative (09/18/2011 N Preg) 10:30:00) [facility]ZjlkxvaLULTRNDCXK7541-57-82 15:30:00 Test Item Value Reference Range Interpretation Comments UA WBC (test code = UA None Seen (09/18/2011 N WBC) 10:30:00) [facility]DqidadcZNSWBCVBTA2036-30-68 15:30:00 Test Item Value Reference Range Interpretation Comments UA RBC (test None Seen See_Comment N [Automated mes pastor] code = UA RBC) (09/18/2011 The system wh ich 10:30:00) generated this result transmitted ref erence range: <=2. The reference range was not used to int erpret this result as normal/abnormal . [facility] HospitalSpxpiexZYVXBCTVPR8225-48-21 15:30:00 Test Item Value Reference Range Interpretation Comments UA Bacteria (test code = None Seen (09/18/2011 N UA Bacteria) 10:30:00) [facility] HospitalBuelsafGCOKDBDJTF7133-53-63 15:30:00 Test Item Value Reference Range Interpretation Comments UA Amorph Destiny (test Few /HPF A code = UA Amorph Destiny) *ABN*(09/18/2011 10:30:00) [facility] HospitalRoggrixQOYXZPXXWF6872-90-16 15:30:00 Test Item Value Reference Range Interpretation Comments Micro? (test code = Performed (09/18/2011 N Micro?) 10:30:00) [facility] HospitalOuuqrhvGLDYIGEDIA5633-53-78 15:30:00 Test Item Value Reference Range Interpretation Comments UA Sq Epi (test code = Rare /LPF (09/18/2011 N UA Sq Epi) 10:30:00) [facility] HospitalLmmsyhgYJUPNZZIDX9913-89-32 15:30:00 Test Item Value Reference Range Interpretation Comments UA Ketones (test code = 15 mg/dL A UA Ketones) *ABN*(09/18/2011 10:30:00) [facility] HospitalYttofjjFHSPNNVWED2697-55-81 15:30:00 Test Item Value Reference Range Interpretation Comments UA Glucose (test code = >=1000 mg/dL A UA Glucose) *ABN*(09/18/2011 10:30:00) [facility] HospitalJkpruriFLAQESYIIH3316-03-25 15:30:00 Test Item Value Reference Range Interpretation Comments UA Protein (test code = Trace A UA Protein) *ABN*(09/18/2011 10:30:00) [facility] HospitalAejnbnlCDHYBMSXUL1071-47-79 15:30:00 Test Item Value Reference Range Interpretation Comments UA Urobilinogen (test code = UA 0.2 0.1-1.0 N Urobilinogen) [facility] HospitalQtlxswrBQUHAOUZME0342-04-23 15:30:00 Test Item Value Reference Range Interpretation Comments UA Blood (test code = Negative (09/18/2011 N UA Blood) 10:30:00) [facility] HospitalRlrbwvzUPLJVNCASO4145-25-72 15:30:00 Test Item Value Reference Range Interpretation Comments UA Bili (test code = Negative *NA*(09/18/2011 UA Bili) 10:30:00) [facility] HospitalEkawrcoYJDAPLCCFH3340-68-79 15:30:00 Test Item Value Reference Range Interpretation Comments UA Leuk Est (test Negative (09/18/2011 N code = UA Leuk Est) 10:30:00) [facility] HospitalNrxyrwwKNFFQTSIGK3223-27-18 15:30:00 Test Item Value Reference Range Interpretation Comments UA Nitrite (test code Negative (09/18/2011 N = UA Nitrite) 10:30:00) [facility] HospitalBnljzziOOXHMVKRXR5630-21-34 15:30:00 Test Item Value Reference Range Interpretation Comments UA pH (test code = UA pH) 7.5 1 5.0-8.0 N [facility] HospitalWbesjimRKGTHOTVEC0405-35-43 15:30:00 Test Item Value Reference Range Interpretation Comments UA Spec Grav (test code = UA Spec 1.010 1 N Grav) [facility] HospitalVpvqgveCZBZPQLIYH2878-32-46 15:30:00 Test Item Value Reference Range Interpretation Comments UA Turbidity (test code Slight Cloudy N = UA Turbidity) (09/18/2011 10:30:00) [facility] HospitalCwfqmezVMTIVBQUKJ3407-36-92 15:30:00 Test Item Value Reference Range Interpretation Comments UA Color (test code = Yellow *NA*(09/18/2011 UA Color) 10:30:00) [facility] HospitalOuvzalzNAHHCXOFC3874-61-78 14:07:00 Test Item Value Reference Range Interpretation Comments Phosphorus (test code = Phosphorus) 4.4 2.5-4.5 N [facility]cosFavwftlANQLFUEBF3467-19-12 14:07:00 Test Item Value Reference Range Interpretation Comments Magnesium Lvl (test code = Magnesium 1.6 1.8-2.4 L Lvl) [facility] TCWOCFP1424-61-82 14:01:00 Test Item Value Reference Range Interpretation Comments Gluc POC Lifscn (test code = Gluc POC no gt 70-99 A Lifscn) [facility]cosHlvcgxrLHKXMCYVY5029-67-26 13:52:00 Test Item Value Reference Range Interpretation Comments pO2 Roberth (test code = pO2 Roberth) 24 20-49 N [facility]cosUleesrzHNZMHHIMT3630-77-62 13:52:00 Test Item Value Reference Range Interpretation Comments HCO3 Roberth (test code = HCO3 Roberth) 32.0 22.0-26.0 H [facility]cosLyvpxziZFQKXPMCA1912-47-35 13:52:00 Test Item Value Reference Range Interpretation Comments pCO2 Roberth (test code = pCO2 Roberth) 44 38-52 N [facility]cosLdgguwuFYHUSFFSZ8464-46-26 13:52:00 Test Item Value Reference Range Interpretation Comments BE Roberth (test code = 7 See_Comment H [Automa rohit message] The BE Roberth) system which ge nerated this result transmit rohit reference range : <=2. The reference range was not used to interpr et this result as reji l/abnormal. [facility]cosVacnjnhUAPHAYUWY8125-29-16 13:52:00 Test Item Value Reference Range Interpretation Comments O2 Sat Roberth (test code = O2 Sat Roberth) 48.0 40.0-70.0 N [facility]cosZtppqvdJEDEQBDYH7627-60-01 13:52:00 Test Item Value Reference Range Interpretation Comments Temp Roberth (test code = Temp Roberth) 37.0 [facility]cosKzcbwqbYGEUFFOTY8660-23-02 13:52:00 Test Item Value Reference Range Interpretation Comments pH Roberth (test code = pH Roberth) 7.47 7.28-7.42 H [facility]cosZphwavhOIBFOQNTS0880-09-71 13:52:00 Test Item Value Reference Range Interpretation Comments Calcium Lvl (test code = Calcium Lvl) 10.1 8.5-10.5 N [facility]cosYgskqfuIGLMACFHZ5449-15-79 13:52:00 Test Item Value Reference Range Interpretation Comments Chloride Lvl (test code = Chloride Lvl) 92 95-109 L [facility]cosUoahnaaVZLWXVDSX0200-06-54 13:52:00 Test Item Value Reference Range Interpretation Comments CO2 (test code = CO2) 30 24-32 N [facility]cosKwkcodzZKPGOWEUA3185-42-85 13:52:00 Test Item Value Reference Range Interpretation Comments Potassium Lvl (test code = Potassium 3.5 3.5-5.1 N Lvl) [facility]cosQkwoxndBQDUBPENW5273-09-02 13:52:00 Test Item Value Reference Range Interpretation Comments Sodium Lvl (test code = Sodium Lvl) 133 135-145 L [facility]cosEilagbhXRQVVVSEG0673-71-66 13:52:00 Test Item Value Reference Range Interpretation Comments Creatinine Lvl (test code = Creatinine 1.3 0.5-1.4 N Lvl) [facility]cosBzatktsTUBXQZXPC4119-04-17 13:52:00 Test Item Value Reference Range Interpretation Comments Glucose Lvl (test code = Glucose Lvl) 383 70-99 H [facility]cosBkfdbwlDCKYKXHIK6833-56-65 13:52:00 Test Item Value Reference Range Interpretation Comments BUN (test code = BUN) 17 7-22 N [facility]cosKebvsnwKZUNUADCG9064-39-81 13:52:00 Test Item Value Reference Range Interpretation Comments AGAP (test code = AGAP) 14.5 10.0-20.0 N [facility] CenterCcsamydNCWUTKRWUX5390-79-69 13:52:00 Test Item Value Reference Range Interpretation Comments MPV (test code = MPV) 12.0 7.4-10.4 H [facility] CenterQhamoubTBCGUHHMQN7670-71-15 13:52:00 Test Item Value Reference Range Interpretation Comments Platelet (test code = Platelet) 226 133-450 N [facility] CenterTfzdcaiDCSNHSAMAM2987-40-74 13:52:00 Test Item Value Reference Range Interpretation Comments MCHC (test code = MCHC) 33.7 32.0-36.0 N [facility] CenterAmbbenrQBOQTTBHYS9815-18-82 13:52:00 Test Item Value Reference Range Interpretation Comments MCH (test code = MCH) 28.5 pg 27.0-31.0 N [facility] CenterSgpvrsmCYXNMRZXKE5249-00-91 13:52:00 Test Item Value Reference Range Interpretation Comments RDW (test code = RDW) 15.1 11.5-14.5 H [facility] CenterTtwwoobBCYWYZZNUZ6592-80-29 13:52:00 Test Item Value Reference Range Interpretation Comments MCV (test code = MCV) 84.6 81.0-99.0 N [facility] CenterYkyosovOBAMMGRNWC2505-97-71 13:52:00 Test Item Value Reference Range Interpretation Comments Hct (test code = Hct) 36.4 36.0-48.0 N [facility] CenterQintykqVVGORVWURN3832-22-31 13:52:00 Test Item Value Reference Range Interpretation Comments Hgb (test code = Hgb) 12.3 12.0-16.0 N [facility] CenterToyxeyaISBSEGLJQG2365-82-87 13:52:00 Test Item Value Reference Range Interpretation Comments RBC (test code = RBC) 4.30 4.20-5.40 N [facility] CenterVooglkwKSFLGVLYAD1420-97-13 13:52:00 Test Item Value Reference Range Interpretation Comments WBC (test code = WBC) 11.7 3.7-10.4 H [facility] CenterBfoefghLOQOKJFNJK9599-67-43 13:52:00 Test Item Value Reference Range Interpretation Comments Monocytes (test code = Monocytes) 2.9 2.0-12.0 N [facility] CenterLolwxupFWCSZHMEGO4417-27-33 13:52:00 Test Item Value Reference Range Interpretation Comments Eosinophils (test code = 0.2 See_Comment N [A utomated message] The Eosinophils) system which ge nerated this result tra nsmitted reference range : <=4.0. The reference r leo was not used to int erpret this result as normal/abnormal . [facility] CenterOdsfxctCKMDKIKVKZ6704-25-10 13:52:00 Test Item Value Reference Range Interpretation Comments Basophils (test code = 0.0 See_Comment N [Aut omated message] The Basophils) system which ge nerated this result tra nsmitted reference range : <=1.0. The reference r leo was not used to int erpret this result as normal/abnormal . [facility] CenterYgvfmfmUKSPLIVTMT3319-99-23 13:52:00 Test Item Value Reference Range Interpretation Comments Eosinophils # (test code 0.0 See_Comment N [A utomated message] The = Eosinophils #) system wh h generated this result tra nsmitted reference range : <=0.5. The reference r leo was not used to int erpret this result as normal/abnormal . [facility] CenterBxwgttoNGQQFRUJYO1398-88-34 13:52:00 Test Item Value Reference Range Interpretation Comments Monocytes # (test code 0.3 See_Comment N [Aut omated message] The = Monocytes #) system which generated this result tra nsmitted reference range : <=0.8. The reference r leo was not used to int erpret this result as normal/abnormal . [facility] CenterQmmvdtbOCJCUSCEYC1024-85-68 13:52:00 Test Item Value Reference Range Interpretation Comments Segs (test code = Segs) 92.0 45.0-75.0 H [facility] CenterSrrpakxBDLVTEMLNH9561-07-15 13:52:00 Test Item Value Reference Range Interpretation Comments Lymphocytes (test code = Lymphocytes) 4.9 20.0-40.0 L [facility] CenterWxzwzroICGHBIKWGF8533-53-02 13:52:00 Test Item Value Reference Range Interpretation Comments Spherocyte (test code = Rare A Spherocyte) *ABN*(09/18/2011 08:52:00) [facility] CenterEszabuqWKSLBYMHCK7964-49-40 13:52:00 Test Item Value Reference Range Interpretation Comments Large Plt (test code = Slight *ABN*(09/18/2011 A Large Plt) 08:52:00) [facility] CenterZjfatpnZTVNIWTQRN3742-70-68 13:52:00 Test Item Value Reference Range Interpretation Comments Microcyte (test code = 1+ *ABN*(09/18/2011 A Microcyte) 08:52:00) [facility] CenterWeftldzSLIJJBJAJP4976-01-09 13:52:00 Test Item Value Reference Range Interpretation Comments Schistocyte (test code = Schistocyte) Rare [facility] CenterLkqedznWJSGESZMBV2180-44-94 13:52:00 Test Item Value Reference Range Interpretation Comments Macrocyte (test code = 1+ *ABN*(09/18/2011 A Macrocyte) 08:52:00) [facility] CenterShtdoboCKWIXXUUQW2608-22-68 13:52:00 Test Item Value Reference Range Interpretation Comments Lymphocytes # (test code = Lymphocytes 0.6 1.0-5.5 L #) [facility] CenterPdodoszHFVOLQRWLT5931-28-89 13:52:00 Test Item Value Reference Range Interpretation Comments Segs-Bands # (test code = Segs-Bands #) 10.8 1.5-8.1 H [facility] CenterFmqppwmWYQRXHDBYJ9116-95-75 13:52:00 Test Item Value Reference Range Interpretation Comments Basophils # (test code 0.0 See_Comment N [Aut omated message] The = Basophils #) system which generated this result tra nsmitted reference range : <=0.2. The reference r leo was not used to int erpret this result as normal/abnormal . [facility] HospitalZusqilcNANNDDLSXW0611-09-55 13:52:00 Test Item Value Reference Range Interpretation Comments Anisocyte (test code = 1+ *ABN*(09/18/2011 A Anisocyte) 08:52:00) [facility] HospitalKbenrjhNEOKDMLMTW6434-52-64 13:52:00 Test Item Value Reference Range Interpretation Comments CDC-HIV 1/2 Ab (test Negative *NA*(09/18/2011 code = CDC-HIV 1/2 08:52:00) Ab) [facility] GLUCOSE QGLRYWU2085-37-18 17:34:00 Test Item Value Reference Range Interpretation Comments Gluc POC Lifscn (test code = Gluc POC 215 70-99 H Lifscn) [facility] GLUCOSE BTMRBZP6365-69-57 17:34:00 Test Item Value Reference Range Interpretation Comments Comment1 (test code = Comment1) Notify RN/ [facility] GLUCOSE HTMXEZR8386-18-00 11:43:00 Test Item Value Reference Range Interpretation Comments Comment1 (test code = Comment1) Notify RN/ [facility] GLUCOSE MEXWRLC1826-12-04 11:43:00 Test Item Value Reference Range Interpretation Comments Gluc POC Lifscn (test code = Gluc POC 91 65-110 N Lifscn) [facility] GLUCOSE RUFXLAN0610-41-29 02:45:00 Test Item Value Reference Range Interpretation Comments Comment1 (test code = Comment1) Notify RN/ [facility] GLUCOSE DNIGTXK9221-42-12 02:45:00 Test Item Value Reference Range Interpretation Comments Gluc POC Lifscn (test code = Gluc POC 148 65-110 H Lifscn) [facility]cosKapmjrsSMZOFONKB0444-47-20 08:47:00 Test Item Value Reference Range Interpretation Comments Sodium Lvl (test code = Sodium Lvl) 143 135-145 N [facility]YxhjrhpWXDROMIBI2364-58-32 08:47:00 Test Item Value Reference Range Interpretation Comments Glucose Lvl (test code = Glucose Lvl) 105 [facility]cosZofznivILCUCUMQW3244-48-91 08:47:00 Test Item Value Reference Range Interpretation Comments CO2 (test code = CO2) 29 24-32 N [facility]cosDrskxzfMGNIKKMTC6343-60-68 08:47:00 Test Item Value Reference Range Interpretation Comments Chloride Lvl (test code = Chloride Lvl) 103 95-109 N [facility]cosCkqdiemEILMHFPCX7416-09-65 08:47:00 Test Item Value Reference Range Interpretation Comments BUN (test code = BUN) 10 7-22 N [facility]cosXvkekxmIXXTPTCPT0626-38-31 08:47:00 Test Item Value Reference Range Interpretation Comments Potassium Lvl (test code = Potassium 3.8 3.5-5.1 N Lvl) [facility]cosMdyazylAMWUOLHGK1916-09-49 08:47:00 Test Item Value Reference Range Interpretation Comments Creatinine Lvl (test code = Creatinine 0.6 0.5-1.4 N Lvl) [facility]cosNysufxwOQAVUCCKR5183-91-87 08:47:00 Test Item Value Reference Range Interpretation Comments Calcium Lvl (test code = Calcium Lvl) 8.5 8.5-10.5 N [facility]cosGtqbmpoGQRRLDJUY8755-94-17 08:47:00 Test Item Value Reference Range Interpretation Comments AGAP (test code = AGAP) 14.8 10.0-20.0 N [facility] CenterSmqrzsqVQHZWRNHKS3008-83-20 08:47:00 Test Item Value Reference Range Interpretation Comments MCH (test code = MCH) 28.9 pg 27.0-31.0 N [facility] CenterYwgcqjiASXOINWTHR3307-18-03 08:47:00 Test Item Value Reference Range Interpretation Comments MCV (test code = MCV) 82.1 81.0-99.0 N [facility] CenterUkhvvhkDGKPFKVLVN2723-59-11 08:47:00 Test Item Value Reference Range Interpretation Comments Hct (test code = Hct) 25.9 36.0-48.0 L [facility] CenterHvfprtrYKSXKKAGOZ2733-57-33 08:47:00 Test Item Value Reference Range Interpretation Comments Platelet (test code = Platelet) 233 133-450 N [facility] CenterJevvoozANMDEVLYOV5452-81-21 08:47:00 Test Item Value Reference Range Interpretation Comments RDW (test code = RDW) 14.5 11.5-14.5 N [facility] CenterUeqhavvMYKHGNEQVE4907-33-63 08:47:00 Test Item Value Reference Range Interpretation Comments MCHC (test code = MCHC) 35.2 32.0-36.0 N [facility] CenterJamhldzUJYMSRWTMS3974-06-84 08:47:00 Test Item Value Reference Range Interpretation Comments Hgb (test code = Hgb) 9.1 12.0-16.0 L [facility] CenterNemtydhCXYUPLSGST2333-44-91 08:47:00 Test Item Value Reference Range Interpretation Comments RBC (test code = RBC) 3.15 4.20-5.40 L [facility] CenterJacjbjbRFJQFCOIAS8749-04-92 08:47:00 Test Item Value Reference Range Interpretation Comments MPV (test code = MPV) 9.0 7.4-10.4 N [facility] CenterNynjaptHRZLDEVEMK4197-07-53 08:47:00 Test Item Value Reference Range Interpretation Comments WBC (test code = WBC) 6.3 3.7-10.4 N [facility] CenterPvtzqkhOMUILTWDFH9643-84-20 08:47:00 Test Item Value Reference Range Interpretation Comments Eosinophils # (test code 0.0 See_Comment N [A utomated message] The = Eosinophils #) system whic h generated this result tra nsmitted reference range : <=0.5. The reference r leo was not used to int erpret this result as normal/abnormal . [facility] CenterUuimppjBSNPIDEYPT4097-45-87 08:47:00 Test Item Value Reference Range Interpretation Comments Basophils # (test code 0.0 See_Comment N [Aut omated message] The = Basophils #) system which generated this result tra nsmitted reference range : <=0.2. The reference r leo was not used to int erpret this result as normal/abnormal . [facility] CenterVmrgpyzRCSLRRNPHJ3681-63-66 08:47:00 Test Item Value Reference Range Interpretation Comments Segs-Bands # (test code = Segs-Bands #) 3.8 1.5-8.1 N [facility] CenterCkekhnfJGUDFNNRSM5552-97-59 08:47:00 Test Item Value Reference Range Interpretation Comments Lymphocytes # (test code = Lymphocytes 2.0 1.0-5.5 N #) [facility] CenterHmqhgxcZKJPNAFVHT7526-45-83 08:47:00 Test Item Value Reference Range Interpretation Comments Basophils (test code = 0.5 See_Comment N [Aut omated message] The Basophils) system which ge nerated this result tra nsmitted reference range : <=1.0. The reference r leo was not used to int erpret this result as normal/abnormal . [facility] CenterXslkqduIVDLKXEEUX3932-73-10 08:47:00 Test Item Value Reference Range Interpretation Comments Eosinophils (test code = 0.7 See_Comment N [A utomated message] The Eosinophils) system which ge nerated this result tra nsmitted reference range : <=4.0. The reference r leo was not used to int erpret this result as normal/abnormal . [facility] CenterBpdeukaJLHPIENKMP9600-21-10 08:47:00 Test Item Value Reference Range Interpretation Comments Monocytes (test code = Monocytes) 6.2 2.0-12.0 N [facility] CenterJsifbkuSKDQSDTMSG6807-39-30 08:47:00 Test Item Value Reference Range Interpretation Comments Segs (test code = Segs) 61.1 45.0-75.0 N [facility] CenterNmrzihmLAEAYFFZYK7639-36-35 08:47:00 Test Item Value Reference Range Interpretation Comments Lymphocytes (test code = Lymphocytes) 31.5 20.0-40.0 N [facility] CenterRjcvczjJMCTJLQBVC7061-98-81 08:47:00 Test Item Value Reference Range Interpretation Comments Monocytes # (test code 0.4 See_Comment N [Aut omated message] The = Monocytes #) system which generated this result tra nsmitted reference range : <=0.8. The reference r leo was not used to int erpret this result as normal/abnormal . [facility]IqkyufgDSNNXYQZI5238-70-04 10:54:00 Test Item Value Reference Range Interpretation Comments CO2 (test code = CO2) 27 24-32 N [facility]cosNwxxmahNROLAWNTL7439-65-87 10:54:00 Test Item Value Reference Range Interpretation Comments Chloride Lvl (test code = Chloride Lvl) 104 95-109 N [facility]cosVsnjtrdHXAXWVQOR8699-55-90 10:54:00 Test Item Value Reference Range Interpretation Comments Creatinine Lvl (test code = Creatinine 0.5 0.5-1.4 N Lvl) [facility]cosLazdpcoAHSRGVNRB9312-25-48 10:54:00 Test Item Value Reference Range Interpretation Comments BUN (test code = BUN) 10 7-22 N [facility]cosJbfhnwlKYUPTXOMG0334-14-88 10:54:00 Test Item Value Reference Range Interpretation Comments Potassium Lvl (test code = Potassium 4.1 3.5-5.1 N Lvl) [facility]cosTsqeyyqQQQPPDWIK6755-43-48 10:54:00 Test Item Value Reference Range Interpretation Comments Sodium Lvl (test code = Sodium Lvl) 141 135-145 N [facility]cosVzwkrbkVPYALLIBC2797-07-68 10:54:00 Test Item Value Reference Range Interpretation Comments Glucose Lvl (test code = Glucose Lvl) 83 [facility]cosHbajtohYMKANRPCY3392-06-74 10:54:00 Test Item Value Reference Range Interpretation Comments Calcium Lvl (test code = Calcium Lvl) 8.4 8.5-10.5 L [facility]cosUosfkdkHYVCRAGBB3366-61-95 10:54:00 Test Item Value Reference Range Interpretation Comments AGAP (test code = AGAP) 14.1 10.0-20.0 N [facility] CenterEcbvcgzOJCXSVCCCT5135-84-67 10:54:00 Test Item Value Reference Range Interpretation Comments Hct (test code = Hct) 35.5 36.0-48.0 L [facility] CenterEiuezfsXEYISOHLZQ8379-04-54 10:54:00 Test Item Value Reference Range Interpretation Comments WBC (test code = WBC) 4.7 3.7-10.4 N [facility] CenterKehhvmnDXKHDUGKEI2647-63-42 10:54:00 Test Item Value Reference Range Interpretation Comments MCV (test code = MCV) 92.6 81.0-99.0 N [facility] CenterPcedtjaRHLKFOZFHZ9944-15-38 10:54:00 Test Item Value Reference Range Interpretation Comments MCH (test code = MCH) 31.4 pg 27.0-31.0 H [facility] CenterRvczdfbNBLUSJVDFD1700-13-93 10:54:00 Test Item Value Reference Range Interpretation Comments RBC (test code = RBC) 3.84 4.20-5.40 L [facility] CenterAdjfoznPVICLHKZPW5357-89-00 10:54:00 Test Item Value Reference Range Interpretation Comments Hgb (test code = Hgb) 12.1 12.0-16.0 N [facility] CenterMfdbzgtUKDMCEFNMR3361-90-46 10:54:00 Test Item Value Reference Range Interpretation Comments Platelet (test code = Platelet) 287 133-450 N [facility] CenterLhlzydqCXWVOKUZLN4155-53-10 10:54:00 Test Item Value Reference Range Interpretation Comments RDW (test code = RDW) 12.7 11.5-14.5 N [facility] CenterStstnooLFSZTEAYOI9575-31-46 10:54:00 Test Item Value Reference Range Interpretation Comments MCHC (test code = MCHC) 33.9 32.0-36.0 N [facility] CenterAuafcfhWLYFOWVTHB4158-52-95 10:54:00 Test Item Value Reference Range Interpretation Comments MPV (test code = MPV) 7.2 7.4-10.4 L [facility] CenterNkyfakmOKHULLQFXQ9570-28-26 10:54:00 Test Item Value Reference Range Interpretation Comments INR (test code = INR) 0.95 0.85-1.17 N [facility] CenterMhankhnEQSTJNNWAZ1027-82-19 10:54:00 Test Item Value Reference Range Interpretation Comments PT (test code = PT) 12.7 s 12.0-14.7 N [facility] CenterSppuvkmIQGTNGHKJP2426-61-30 10:54:00 Test Item Value Reference Range Interpretation Comments PTT (test code = PTT) 28.5 s 22.9-35.8 N [facility] CenterIclboqlZEAWHFDVID7241-39-16 10:54:00 Test Item Value Reference Range Interpretation Comments Eosinophils # (test code 0.1 See_Comment N [A utomated message] The = Eosinophils #) system whic h generated this result tra nsmitted reference range : <=0.5. The reference r leo was not used to int erpret this result as normal/abnormal . [facility] CenterWzvvcmnQOYOBLWHLB6284-41-35 10:54:00 Test Item Value Reference Range Interpretation Comments Basophils # (test code 0.0 See_Comment N [Aut omated message] The = Basophils #) system which generated this result tra nsmitted reference range : <=0.2. The reference r leo was not used to int erpret this result as normal/abnormal . [facility] CenterJipaenoGKJEHZGJPC3175-52-30 10:54:00 Test Item Value Reference Range Interpretation Comments Basophils (test code = 0.4 See_Comment N [Aut omated message] The Basophils) system which ge nerated this result tra nsmitted reference range : <=1.0. The reference r leo was not used to int erpret this result as normal/abnormal . [facility] CenterBbmtjezMONOQSRAUP3744-71-49 10:54:00 Test Item Value Reference Range Interpretation Comments Segs-Bands # (test code = Segs-Bands #) 2.1 1.5-8.1 N [facility] CenterAxgykflKIADVMXVTX1230-29-42 10:54:00 Test Item Value Reference Range Interpretation Comments Monocytes (test code = Monocytes) 9.0 2.0-12.0 N [facility] CenterSagsjunOPGVGCGRYG2920-85-61 10:54:00 Test Item Value Reference Range Interpretation Comments Eosinophils (test code = 2.4 See_Comment N [A utomated message] The Eosinophils) system which ge nerated this result tra nsmitted reference range : <=4.0. The reference r leo was not used to int erpret this result as normal/abnormal . [facility] CenterCveohotQZYJEBJGHL1756-74-15 10:54:00 Test Item Value Reference Range Interpretation Comments Monocytes # (test code 0.4 See_Comment N [Aut omated message] The = Monocytes #) system which generated this result tra nsmitted reference range : <=0.8. The reference r leo was not used to int erpret this result as normal/abnormal . [facility] CenterYmcqfexOGJSHZXNIJ8815-74-65 10:54:00 Test Item Value Reference Range Interpretation Comments Lymphocytes # (test code = Lymphocytes 2.0 1.0-5.5 N #) [facility] CenterOmhgwfzGMVUGGELFW3318-55-74 10:54:00 Test Item Value Reference Range Interpretation Comments Lymphocytes (test code = Lymphocytes) 42.8 20.0-40.0 H [facility] CenterOlasbgfWLIURNVAMC9371-56-12 10:54:00 Test Item Value Reference Range Interpretation Comments Segs (test code = Segs) 45.4 45.0-75.0 N [facility]cosZmmpiwxVZPLTHBYK3562-22-03 10:02:00 Test Item Value Reference Range Interpretation Comments Chloride Lvl (test code = Chloride Lvl) 105 95-109 N [facility]cosDhkfchnFLSIWUOWQ1795-10-98 10:02:00 Test Item Value Reference Range Interpretation Comments Potassium Lvl (test code = Potassium 4.1 3.5-5.1 N Lvl) [facility]cosZtmvlqtJNIKDZLQY5555-12-37 10:02:00 Test Item Value Reference Range Interpretation Comments Sodium Lvl (test code = Sodium Lvl) 143 135-145 N [facility]cosRbdzktsMLEXNWGHA7361-78-60 10:02:00 Test Item Value Reference Range Interpretation Comments CO2 (test code = CO2) 29 24-32 N [facility]cosQmjtdovSLFXXEHRQ6783-42-97 10:02:00 Test Item Value Reference Range Interpretation Comments Calcium Lvl (test code = Calcium Lvl) 8.7 8.5-10.5 N [facility]cosKcusnnkUTHXORGWU5964-27-92 10:02:00 Test Item Value Reference Range Interpretation Comments BUN (test code = BUN) 6 7-22 L [facility]cosJdlxrxdRIKQBHWPK7513-32-83 10:02:00 Test Item Value Reference Range Interpretation Comments Creatinine Lvl (test code = Creatinine 0.6 0.5-1.4 N Lvl) [facility]cosSkapjqiAKEZWNQNC2014-18-23 10:02:00 Test Item Value Reference Range Interpretation Comments Glucose Lvl (test code = Glucose Lvl) 118 [facility]cosXgupakmVOYAAYLGR5605-24-95 10:02:00 Test Item Value Reference Range Interpretation Comments AGAP (test code = AGAP) 13.1 10.0-20.0 N [facility] CenterHirirudDYGSGOAFRO2743-35-90 10:02:00 Test Item Value Reference Range Interpretation Comments Basophils # (test code 0.0 See_Comment N [Aut omated message] The = Basophils #) system which generated this result tra nsmitted reference range : <=0.2. The reference r leo was not used to int erpret this result as normal/abnormal . [facility] CenterKfuctgbNOJFWVLSCB2824-19-76 10:02:00 Test Item Value Reference Range Interpretation Comments Monocytes # (test code 0.3 See_Comment N [Aut omated message] The = Monocytes #) system which generated this result tra nsmitted reference range : <=0.8. The reference r leo was not used to int erpret this result as normal/abnormal . [facility] CenterKizgxulDUMNKISUIP9224-03-56 10:02:00 Test Item Value Reference Range Interpretation Comments Eosinophils # (test code 0.1 See_Comment N [A utomated message] The = Eosinophils #) system whic h generated this result tra nsmitted reference range : <=0.5. The reference r leo was not used to int erpret this result as normal/abnormal . [facility] CenterJnpeadhCNGWGHXUPY2266-73-97 10:02:00 Test Item Value Reference Range Interpretation Comments Segs-Bands # (test code = Segs-Bands #) 2.8 1.5-8.1 N [facility] CenterMwfcnnxRZPUDOSKDS4294-44-80 10:02:00 Test Item Value Reference Range Interpretation Comments Lymphocytes # (test code = Lymphocytes 1.7 1.0-5.5 N #) [facility] CenterWkpfxlbGGLMDIJZPG8970-79-88 10:02:00 Test Item Value Reference Range Interpretation Comments Basophils (test code = 0.6 See_Comment N [Aut omated message] The Basophils) system which ge nerated this result tra nsmitted reference range : <=1.0. The reference r leo was not used to int erpret this result as normal/abnormal . [facility] CenterIucguzgUNHUUOUASZ1871-09-44 10:02:00 Test Item Value Reference Range Interpretation Comments Monocytes (test code = Monocytes) 6.9 2.0-12.0 N [facility] CenterKgjogjgQSMZRYVQCR8818-23-13 10:02:00 Test Item Value Reference Range Interpretation Comments Eosinophils (test code = 2.0 See_Comment N [A utomated message] The Eosinophils) system which ge nerated this result tra nsmitted reference range : <=4.0. The reference r leo was not used to int erpret this result as normal/abnormal . [facility] CenterYxewazaNHJNSDPJAN0879-20-74 10:02:00 Test Item Value Reference Range Interpretation Comments Segs (test code = Segs) 55.8 45.0-75.0 N [facility] CenterTgcquttCKHBVGUVIW3857-13-80 10:02:00 Test Item Value Reference Range Interpretation Comments Lymphocytes (test code = Lymphocytes) 34.7 20.0-40.0 N [facility] CenterDsdwujsDUQTLWTZHT0542-52-86 10:02:00 Test Item Value Reference Range Interpretation Comments PTT (test code = PTT) 32.2 s 22.9-35.8 N [facility] CenterUrgoqojJZAEXTMTDO3938-89-97 10:02:00 Test Item Value Reference Range Interpretation Comments PT (test code = PT) 13.3 s 12.0-14.7 N [facility] CenterRhgqvtdSMPXQRUHJQ4211-55-30 10:02:00 Test Item Value Reference Range Interpretation Comments INR (test code = INR) 1.01 0.85-1.17 N [facility] CenterPagzawrZVAQSHHMOC9125-94-29 10:02:00 Test Item Value Reference Range Interpretation Comments Hct (test code = Hct) 27.5 36.0-48.0 L [facility] CenterCfhfttyNFZIBQCPWN7278-68-23 10:02:00 Test Item Value Reference Range Interpretation Comments RBC (test code = RBC) 3.34 4.20-5.40 L [facility] CenterOozmrseLZYQDVDVTM8761-87-68 10:02:00 Test Item Value Reference Range Interpretation Comments Hgb (test code = Hgb) 9.7 12.0-16.0 L [facility] CenterSzjxycyVXCFNEOTDZ3136-88-17 10:02:00 Test Item Value Reference Range Interpretation Comments WBC (test code = WBC) 5.0 3.7-10.4 N [facility] CenterLycstjzCQSJZZSPSW2312-16-25 10:02:00 Test Item Value Reference Range Interpretation Comments MPV (test code = MPV) 9.2 7.4-10.4 N [facility] CenterFzmammcAMJEAVLWBP2686-00-00 10:02:00 Test Item Value Reference Range Interpretation Comments Platelet (test code = Platelet) 240 133-450 N [facility] CenterJeodtrzAWTKSCTORV2877-45-55 10:02:00 Test Item Value Reference Range Interpretation Comments RDW (test code = RDW) 14.3 11.5-14.5 N [facility] CenterEjoyduaNJFMKASFSM3262-04-51 10:02:00 Test Item Value Reference Range Interpretation Comments MCHC (test code = MCHC) 35.2 32.0-36.0 N [facility] CenterZdbcuhjWPPVTXVPKQ2799-72-94 10:02:00 Test Item Value Reference Range Interpretation Comments MCH (test code = MCH) 28.9 pg 27.0-31.0 N [facility] CenterHyucieaYHHQFZIXHI5353-00-31 10:02:00 Test Item Value Reference Range Interpretation Comments MCV (test code = MCV) 82.1 81.0-99.0 N [facility]cosRpmnbseNACVDIAAJ4978-97-19 09:24:00 Test Item Value Reference Range Interpretation Comments Magnesium Lvl (test code = Magnesium 2.1 1.8-2.4 N Lvl) [facility]SzvrnrfUqkoilcwytkn7942-00-74 00:32:00 Test Item Value Reference Range Interpretation Comments Culture: Aspirate/Body Fluid/Tissue (test code = Culture: Aspirate/Body Fluid/Tissue) [facility]KboretwIzvcjfmxmdgz4335-76-35 00:32:00 Test Item Value Reference Range Interpretation Comments Culture: Anaerobic (test code = Culture: Anaerobic) [facility]cosFotoinlTARWECSKQ8774-26-99 17:10:00 Test Item Value Reference Range Interpretation Comments Temp Roberth (test code = Temp Roberth) 37.0 [facility]cosAlfxeeqRZUQXYFVL2503-03-61 17:10:00 Test Item Value Reference Range Interpretation Comments O2 Sat Roberth (test code = O2 Sat Roberth) 27.0 40.0-70.0 L [facility]cosErcgnwcZPCRMXZMF2147-69-04 17:10:00 Test Item Value Reference Range Interpretation Comments pCO2 Roberth (test code = pCO2 Roberth) 47 38-52 N [facility]cosLpvnrzbKDFUSJBWL3906-36-10 17:10:00 Test Item Value Reference Range Interpretation Comments pH Roberth (test code = pH Roberth) 7.37 7.28-7.42 N [facility]cosPegzvoaPKCCPBKRF6433-69-15 17:10:00 Test Item Value Reference Range Interpretation Comments BE Roberth (test code = 1 See_Comment N [Automa rohit message] The BE Roberth) system which ge nerated this result transmit rohit reference range : <=2. The reference range was not used to interpr et this result as reji l/abnormal. [facility]cosBygqoxgEXHHENAFV3407-70-64 17:10:00 Test Item Value Reference Range Interpretation Comments HCO3 Roberth (test code = HCO3 Roberth) 27.2 22.0-26.0 H [facility]cosDmotnhdSKXCBIKHW3340-63-47 17:10:00 Test Item Value Reference Range Interpretation Comments pO2 Roberth (test code = pO2 Roberth) 19 20-49 L [facility]BfwtmalUlbdrfdtuzdy1839-51-70 14:18:00 Test Item Value Reference Range Interpretation Comments Culture: Blood (test code = Culture: Blood) [facility]YwwqmzwBieldepnpnkt2311-94-23 14:18:00 Test Item Value Reference Range Interpretation Comments Culture: Wound/Abscess w/Gram Stain (test code = Culture: Wound/Abscess w/Gram Stain) [facility]cosJlczmlaPAQLFLTTW4973-26-57 13:09:00 Test Item Value Reference Range Interpretation Comments Lactic Acid Lvl (test code = Lactic 1.0 0.5-2.2 N Acid Lvl) [facility]cosKgdllwoWGYMZQQCC1877-23-34 12:20:00 Test Item Value Reference Range Interpretation Comments U Preg (test code = U Negative (09/01/2011 N Preg) 07:20:00) [facility]AtcakwtSUXOWROMXS7631-08-68 12:20:00 Test Item Value Reference Range Interpretation Comments UA Sq Epi (test code Occasional /LPF N = UA Sq Epi) (09/01/2011 07:20:00) [facility] HospitalZivnsowOZSDFSOWSE0917-09-57 12:20:00 Test Item Value Reference Range Interpretation Comments UA Leuk Est (test Negative (09/01/2011 N code = UA Leuk Est) 07:20:00) [facility] HospitalEzvxtthBZDDXJVVDA4032-25-67 12:20:00 Test Item Value Reference Range Interpretation Comments UA Nitrite (test code Negative (09/01/2011 N = UA Nitrite) 07:20:00) [facility] HospitalAfmstpuDWCFGSEAST7063-84-66 12:20:00 Test Item Value Reference Range Interpretation Comments UA Urobilinogen (test code = UA 0.2 0.1-1.0 N Urobilinogen) [facility] HospitalEgsqksgERHJYXXCDR0826-35-12 12:20:00 Test Item Value Reference Range Interpretation Comments UA Blood (test code = Negative (09/01/2011 N UA Blood) 07:20:00) [facility] HospitalRcpoccqEWPMCWCEFJ0373-43-75 12:20:00 Test Item Value Reference Range Interpretation Comments UA Ketones (test code = >=80 mg/dL A UA Ketones) *ABN*(09/01/2011 07:20:00) [facility] HospitalBhrkmrjXREHEWSHVY6618-33-65 12:20:00 Test Item Value Reference Range Interpretation Comments UA Protein (test code Negative (09/01/2011 N = UA Protein) 07:20:00) [facility] HospitalYlbnmwiOQDUBIZUGP6993-12-66 12:20:00 Test Item Value Reference Range Interpretation Comments UA pH (test code = UA pH) 6.0 1 5.0-8.0 N [facility] HospitalHmulhtsWINCAAKWHR9177-44-34 12:20:00 Test Item Value Reference Range Interpretation Comments UA Bili (test code = Negative (09/01/2011 N UA Bili) 07:20:00) [facility] HospitalAlvoxviTJCFAKVVUH2324-37-63 12:20:00 Test Item Value Reference Range Interpretation Comments UA Glucose (test code = >=1000 mg/dL A UA Glucose) *ABN*(09/01/2011 07:20:00) [facility]OmzhmwlRGTYXZNOAX6667-91-59 12:20:00 Test Item Value Reference Range Interpretation Comments UA Spec Grav (test code = UA Spec 1.035 1 H Grav) [facility] HospitalUdrudtdTMDACHJTKV5031-68-92 12:20:00 Test Item Value Reference Range Interpretation Comments UA Turbidity (test code = Clear (09/01/2011 N UA Turbidity) 07:20:00) [facility] HospitalQhpzfouLAIASEEKNF4577-33-88 12:20:00 Test Item Value Reference Range Interpretation Comments UA Color (test code = Yellow *NA*(09/01/2011 UA Color) 07:20:00) [facility] HospitalDxznoboKNTWZDPLG8966-37-67 08:00:00 Test Item Value Reference Range Interpretation Comments Lactic Acid Lvl (test code = Lactic 2.8 0.5-2.2 H Acid Lvl) [facility]ANJSZVLVD5335-31-53 07:47:00 Test Item Value Reference Range Interpretation Comments Magnesium Lvl (test code = Magnesium 1.5 1.8-2.4 L Lvl) [facility] HospitalXjenehlOGQDCPXPDD8962-63-40 07:47:00 Test Item Value Reference Range Interpretation Comments Polychrom (test code = Slight (09/01/2011 N Polychrom) 02:47:00) [facility] HospitalZzfdhbzPVMDNCBVHC3572-17-50 07:47:00 Test Item Value Reference Range Interpretation Comments Anisocyte (test code = 1+ *ABN*(09/01/2011 A Anisocyte) 02:47:00) [facility] CenterJzngitjDIMLPZSCVP8754-54-18 07:47:00 Test Item Value Reference Range Interpretation Comments Large Plt (test code = Slight *ABN*(09/01/2011 A Large Plt) 02:47:00) [facility] HospitalNlztlktXLGSXMPHKU9972-01-42 07:47:00 Test Item Value Reference Range Interpretation Comments Tear Cell (test code = Tear Cell) [facility] HospitalOksfoxjOESKMGIWET8551-96-04 07:47:00 Test Item Value Reference Range Interpretation Comments Elliptocyte (test code = Slight A Elliptocyte) *ABN*(09/01/2011 02:47:00) [facility] HospitalBEDSIDE GLUCOSE ZJFXSZQ4154-64-35 17:02:00 Test Item Value Reference Range Interpretation Comments Comment1 (test code = Comment1) Notify RN/MD [facility] GLUCOSE BTGNUES3976-76-50 17:02:00 Test Item Value Reference Range Interpretation Comments Gluc POC Lifscn (test code = Gluc POC 134 65-110 H Lifscn) [facility] GLUCOSE XNXJZHL1291-06-46 13:45:00 Test Item Value Reference Range Interpretation Comments Gluc POC Lifscn (test code = Gluc POC 182 65-110 H Lifscn) [facility] GLUCOSE OXVJZWZ4665-16-64 13:45:00 Test Item Value Reference Range Interpretation Comments Comment1 (test code = Comment1) Notify RN/ [facility]cosRiuiteoEQOIVYMON2606-77-89 10:22:00 Test Item Value Reference Range Interpretation Comments Phosphorus (test code = Phosphorus) 3.0 2.5-4.5 N [facility]cosSfhkokqRHCZSLLHQ7958-00-42 10:22:00 Test Item Value Reference Range Interpretation Comments Magnesium Lvl (test code = Magnesium 1.8 1.8-2.4 N Lvl) [facility]cosXylsxtfTAVLIIHNP1989-53-93 10:22:00 Test Item Value Reference Range Interpretation Comments Chloride Lvl (test code = Chloride Lvl) 107 95-109 N [facility]cosTpnhymsNTIDOVVIM0053-45-12 10:22:00 Test Item Value Reference Range Interpretation Comments Potassium Lvl (test code = Potassium 3.0 3.5-5.1 A Lvl) [facility]cosJavunczXIBZMWKHF5427-70-50 10:22:00 Test Item Value Reference Range Interpretation Comments Sodium Lvl (test code = Sodium Lvl) 141 135-145 N [facility]cosGwoccbxHBKUETBWM5210-37-77 10:22:00 Test Item Value Reference Range Interpretation Comments Creatinine Lvl (test code = Creatinine 0.6 0.5-1.4 N Lvl) [facility]cosFvnrmqzEHIOEMTFG3393-50-39 10:22:00 Test Item Value Reference Range Interpretation Comments CO2 (test code = CO2) 23 24-32 L [facility]cosPohsixzPQIUPZIJI4762-79-43 10:22:00 Test Item Value Reference Range Interpretation Comments Calcium Lvl (test code = Calcium Lvl) 7.3 8.5-10.5 L [facility]cosZowwjziTFRQGAIFT1994-14-89 10:22:00 Test Item Value Reference Range Interpretation Comments Glucose Lvl (test code = Glucose Lvl) 136 [facility]cosMurbhqwQEDAVSPCR9752-94-08 10:22:00 Test Item Value Reference Range Interpretation Comments AGAP (test code = AGAP) 14.0 10.0-20.0 N [facility]cosXdtfvdzSQKHMCHNL9371-82-68 10:22:00 Test Item Value Reference Range Interpretation Comments BUN (test code = BUN) 5 7-22 L [facility] [facility]PizuzneNMCXXGWPLN1198-86-96 10:22:00 Test Item Value Reference Range Interpretation Comments Segs (test code = Segs) 69.6 45.0-75.0 N [facility] CenterRwpfobbAYCAEGEEJT5370-83-58 10:22:00 Test Item Value Reference Range Interpretation Comments Lymphocytes (test code = Lymphocytes) 21.5 20.0-40.0 N [facility] CenterYuqdfoaAKSAUUROYZ8953-04-59 10:22:00 Test Item Value Reference Range Interpretation Comments Monocytes (test code = Monocytes) 7.6 2.0-12.0 N [facility] CenterQewlimuVFXZCRRHHG8455-57-09 10:22:00 Test Item Value Reference Range Interpretation Comments Eosinophils (test code = 1.0 See_Comment N [A utomated message] The Eosinophils) system which ge nerated this result tra nsmitted reference range : <=4.0. The reference r leo was not used to int erpret this result as normal/abnormal . [facility] CenterJtzsdolSVKRRKWGUI2954-05-94 10:22:00 Test Item Value Reference Range Interpretation Comments Basophils (test code = 0.3 See_Comment N [Aut omated message] The Basophils) system which ge nerated this result tra nsmitted reference range : <=1.0. The reference r leo was not used to int erpret this result as normal/abnormal . [facility] CenterUoqmmhdYJERTBKOGA1728-91-26 10:22:00 Test Item Value Reference Range Interpretation Comments Segs-Bands # (test code = Segs-Bands #) 4.8 1.5-8.1 N [facility] CenterIsdyisnQLTGJPUYRI2318-34-25 10:22:00 Test Item Value Reference Range Interpretation Comments Eosinophils # (test code 0.1 See_Comment N [A utomated message] The = Eosinophils #) system whic h generated this result tra nsmitted reference range : <=0.5. The reference r leo was not used to int erpret this result as normal/abnormal . [facility] CenterCssdztbIXZMDRSECC9023-07-64 10:22:00 Test Item Value Reference Range Interpretation Comments Lymphocytes # (test code = Lymphocytes 1.5 1.0-5.5 N #) [facility] CenterOxwqzfzTNKLVMEXXS3538-63-30 10:22:00 Test Item Value Reference Range Interpretation Comments Monocytes # (test code 0.5 See_Comment N [Aut omated message] The = Monocytes #) system which generated this result tra nsmitted reference range : <=0.8. The reference r leo was not used to int erpret this result as normal/abnormal . [facility] CenterZdtmptjEKMTKSQAFZ8163-93-73 10:22:00 Test Item Value Reference Range Interpretation Comments Basophils # (test code 0.0 See_Comment N [Aut omated message] The = Basophils #) system which generated this result tra nsmitted reference range : <=0.2. The reference r leo was not used to int erpret this result as normal/abnormal . [facility] CenterSwuxeshDMZNIMRNHI1167-41-71 10:22:00 Test Item Value Reference Range Interpretation Comments MPV (test code = MPV) 11.0 7.4-10.4 H [facility] CenterUiyhmeoZYPIAPDCKJ1693-37-73 10:22:00 Test Item Value Reference Range Interpretation Comments Platelet (test code = Platelet) 161 133-450 N [facility] CenterRvysgrxDJFCCBPDOH6681-27-64 10:22:00 Test Item Value Reference Range Interpretation Comments MCH (test code = MCH) 29.6 pg 27.0-31.0 N [facility] CenterBolfmwlSUUMUMLQEI9619-36-56 10:22:00 Test Item Value Reference Range Interpretation Comments MCHC (test code = MCHC) 35.4 32.0-36.0 N [facility] CenterCzhittnLSBQGZMLHQ2402-48-70 10:22:00 Test Item Value Reference Range Interpretation Comments RDW (test code = RDW) 14.1 11.5-14.5 N [facility] CenterXbjjoabZEMSMUMWYI4198-55-84 10:22:00 Test Item Value Reference Range Interpretation Comments WBC (test code = WBC) 6.8 3.7-10.4 N [facility] CenterKvxrlimUJDLFHCUPA8982-91-90 10:22:00 Test Item Value Reference Range Interpretation Comments MCV (test code = MCV) 83.5 81.0-99.0 N [facility] CenterVabztjrUEQEPWZLMG2123-89-27 10:22:00 Test Item Value Reference Range Interpretation Comments RBC (test code = RBC) 4.44 4.20-5.40 N [facility] CenterAqebcerQFFIAJTPAM3487-03-97 10:22:00 Test Item Value Reference Range Interpretation Comments Hgb (test code = Hgb) 13.1 12.0-16.0 N [facility] CenterZfbgeygUOPOSAXNXQ1550-73-23 10:22:00 Test Item Value Reference Range Interpretation Comments Hct (test code = Hct) 37.1 36.0-48.0 N [facility] GLUCOSE CRTMGXP4486-06-02 02:20:00 Test Item Value Reference Range Interpretation Comments Comment1 (test code = Comment1) Notify RN/MD [facility] GLUCOSE SEMXAQZ2753-15-18 02:20:00 Test Item Value Reference Range Interpretation Comments Gluc POC Lifscn (test code = Gluc POC 332 65-110 H Lifscn) [facility]cosFlevnqtEKEEJMTNW5720-39-29 09:47:00 Test Item Value Reference Range Interpretation Comments Phosphorus (test code = Phosphorus) 2.5 2.5-4.5 N [facility]cosEclfphnAEWGOLAGL6400-17-70 09:47:00 Test Item Value Reference Range Interpretation Comments Glucose Lvl (test code = Glucose Lvl) 201 [facility]cosBosgqctNSKYXQHDD2607-94-15 09:47:00 Test Item Value Reference Range Interpretation Comments BUN (test code = BUN) 7 7-22 N [facility]cosRzigtrkBWKXIKISB3621-53-26 09:47:00 Test Item Value Reference Range Interpretation Comments CO2 (test code = CO2) 19 24-32 L [facility]cosYyvpzghAMNGMXMJB6116-15-64 09:47:00 Test Item Value Reference Range Interpretation Comments Creatinine Lvl (test code = Creatinine 0.3 0.5-1.4 L Lvl) [facility]cosZuaqykgETJAJFDAQ3825-29-93 09:47:00 Test Item Value Reference Range Interpretation Comments Sodium Lvl (test code = Sodium Lvl) 137 135-145 N [facility] MarcosZinliudKICXGCBTZ5481-14-90 09:47:00 Test Item Value Reference Range Interpretation Comments Chloride Lvl (test code = Chloride Lvl) 103 95-109 N [facility]cosOixrbmcJJUCDLSOP5686-07-52 09:47:00 Test Item Value Reference Range Interpretation Comments Potassium Lvl (test code = Potassium 3.6 3.5-5.1 N Lvl) [facility]cosGjnfxunOVBHTETIT6334-44-74 09:47:00 Test Item Value Reference Range Interpretation Comments Calcium Lvl (test code = Calcium Lvl) 7.9 8.5-10.5 L [facility]cosKkgqvpeUNUNFMSHS3644-69-65 09:47:00 Test Item Value Reference Range Interpretation Comments AGAP (test code = AGAP) 18.6 10.0-20.0 N [facility]cosXjpdzgnMOWZPGFDD7439-75-79 09:47:00 Test Item Value Reference Range Interpretation Comments Magnesium Lvl (test code = Magnesium 1.6 1.8-2.4 L Lvl) [facility] CenterDcfxyqkXTSSEAXSEE8443-15-15 09:47:00 Test Item Value Reference Range Interpretation Comments Basophils # (test code 0.0 See_Comment N [Aut omated message] The = Basophils #) system which generated this result tra nsmitted reference range : <=0.2. The reference r leo was not used to int erpret this result as normal/abnormal . [facility] CenterBohhupqVNGTXCZDYQ1792-28-15 09:47:00 Test Item Value Reference Range Interpretation Comments Eosinophils (test code = 0.4 See_Comment N [A utomated message] The Eosinophils) system which ge nerated this result tra nsmitted reference range : <=4.0. The reference r leo was not used to int erpret this result as normal/abnormal . [facility] CenterVlecbpaWHCXINHBOM8614-97-38 09:47:00 Test Item Value Reference Range Interpretation Comments Basophils (test code = 0.5 See_Comment N [Aut omated message] The Basophils) system which ge nerated this result tra nsmitted reference range : <=1.0. The reference r leo was not used to int erpret this result as normal/abnormal . [facility] CenterXpqgsoaECSTKOOQPS9527-35-33 09:47:00 Test Item Value Reference Range Interpretation Comments Segs-Bands # (test code = Segs-Bands #) 5.9 1.5-8.1 N [facility] CenterCwmvhxyBAFSJEXDNS9836-36-89 09:47:00 Test Item Value Reference Range Interpretation Comments Lymphocytes # (test code = Lymphocytes 1.2 1.0-5.5 N #) [facility] CenterSyvedfgQJMOTHGDFN7690-56-51 09:47:00 Test Item Value Reference Range Interpretation Comments Monocytes # (test code 0.5 See_Comment N [Aut omated message] The = Monocytes #) system which generated this result tra nsmitted reference range : <=0.8. The reference r leo was not used to int erpret this result as normal/abnormal . [facility] CenterVgpxntrSLJNERLWVY1432-52-94 09:47:00 Test Item Value Reference Range Interpretation Comments Eosinophils # (test code 0.0 See_Comment N [A utomated message] The = Eosinophils #) system whic h generated this result tra nsmitted reference range : <=0.5. The reference r leo was not used to int erpret this result as normal/abnormal . [facility] CenterPzwuwwfUIZIUVTVWJ9021-84-25 09:47:00 Test Item Value Reference Range Interpretation Comments Segs (test code = Segs) 76.9 45.0-75.0 H [facility] CenterSppzuvzMINVPLQYYQ8946-45-07 09:47:00 Test Item Value Reference Range Interpretation Comments Lymphocytes (test code = Lymphocytes) 15.9 20.0-40.0 L [facility] CenterMsknsxnIQFDGLXMQI8084-00-94 09:47:00 Test Item Value Reference Range Interpretation Comments Monocytes (test code = Monocytes) 6.3 2.0-12.0 N [facility] CenterDkkygjsIKKSNHDMJR6623-73-27 09:47:00 Test Item Value Reference Range Interpretation Comments MCV (test code = MCV) 82.8 81.0-99.0 N [facility] CenterUnwxztxJCFTPMRFPC3620-33-60 09:47:00 Test Item Value Reference Range Interpretation Comments Hct (test code = Hct) 39.7 36.0-48.0 N [facility] CenterSuxovyaTBYYASEYLK3396-28-72 09:47:00 Test Item Value Reference Range Interpretation Comments MCH (test code = MCH) 29.1 pg 27.0-31.0 N [facility] CenterTfjyiuvJEPKHAJRYC2185-68-23 09:47:00 Test Item Value Reference Range Interpretation Comments Hgb (test code = Hgb) 14.0 12.0-16.0 N [facility] CenterBiqcwyvDZSDYMRBDK4756-94-10 09:47:00 Test Item Value Reference Range Interpretation Comments MCHC (test code = MCHC) 35.2 32.0-36.0 N [facility] CenterObrhmzrPBZHKZIBYS0634-21-70 09:47:00 Test Item Value Reference Range Interpretation Comments RDW (test code = RDW) 13.9 11.5-14.5 N [facility] CenterOonayznPMVRDHVVPK4150-17-09 09:47:00 Test Item Value Reference Range Interpretation Comments Platelet (test code = Platelet) 160 133-450 N [facility] CenterGhauocjTSAENBRSAW5150-58-35 09:47:00 Test Item Value Reference Range Interpretation Comments MPV (test code = MPV) 11.9 7.4-10.4 H [facility] CenterLgexutaGHFFUZCYXF7043-47-06 09:47:00 Test Item Value Reference Range Interpretation Comments WBC (test code = WBC) 7.7 3.7-10.4 N [facility] CenterCiattedFYXYZTASYY4000-29-48 09:47:00 Test Item Value Reference Range Interpretation Comments RBC (test code = RBC) 4.80 4.20-5.40 N [facility]cosKgdrqluAKMRUSCIV5161-75-57 10:28:00 Test Item Value Reference Range Interpretation Comments Phosphorus (test code = Phosphorus) 2.6 2.5-4.5 N [facility]cosTzqgpicZCHGBGPUF5070-41-93 10:28:00 Test Item Value Reference Range Interpretation Comments Magnesium Lvl (test code = Magnesium 1.8 1.8-2.4 N Lvl) [facility]cosBboztkxPFAOSWHZJ3097-96-28 10:28:00 Test Item Value Reference Range Interpretation Comments Potassium Lvl (test code = Potassium 3.7 3.5-5.1 N Lvl) [facility]cosUjdbcpsXMAKGFRGM9896-95-00 10:28:00 Test Item Value Reference Range Interpretation Comments Sodium Lvl (test code = Sodium Lvl) 137 135-145 N [facility]cosJrhowanPJWMCEHJH6939-43-64 10:28:00 Test Item Value Reference Range Interpretation Comments Creatinine Lvl (test code = Creatinine 0.6 0.5-1.4 N Lvl) [facility]cosKagnqioWONFVABCR1188-85-98 10:28:00 Test Item Value Reference Range Interpretation Comments BUN (test code = BUN) 16 7-22 N [facility]cosFyvnhxvAGHAVPMXJ6797-33-07 10:28:00 Test Item Value Reference Range Interpretation Comments Glucose Lvl (test code = Glucose Lvl) 200 [facility]cosUtrlturYFPBDSQBX7117-40-35 10:28:00 Test Item Value Reference Range Interpretation Comments Calcium Lvl (test code = Calcium Lvl) 8.3 8.5-10.5 L [facility]cosAughhjoNKXEHAJKS3910-78-95 10:28:00 Test Item Value Reference Range Interpretation Comments AGAP (test code = AGAP) 19.7 10.0-20.0 N [facility]cosRsbaptlYHLMMVACL7911-55-85 10:28:00 Test Item Value Reference Range Interpretation Comments Chloride Lvl (test code = Chloride Lvl) 99 95-109 N [facility]cosOnheetiXHMZRHVDT1541-15-92 10:28:00 Test Item Value Reference Range Interpretation Comments CO2 (test code = CO2) 22 24-32 L [facility] CenterYppenaqFJLDXWCRMW8987-63-92 10:28:00 Test Item Value Reference Range Interpretation Comments Platelet (test code = Platelet) 172 133-450 N [facility] CenterUugqlmmRUORKCMJVP8033-05-07 10:28:00 Test Item Value Reference Range Interpretation Comments MPV (test code = MPV) 12.0 7.4-10.4 H [facility] CenterLwxkygjNAILNQURHS6130-01-15 10:28:00 Test Item Value Reference Range Interpretation Comments WBC (test code = WBC) 7.3 3.7-10.4 N [facility] CenterWlxvinwXCJHQXLKFF5364-87-64 10:28:00 Test Item Value Reference Range Interpretation Comments RDW (test code = RDW) 14.6 11.5-14.5 H [facility] CenterEsxjcozWQBYCANZAE7131-29-62 10:28:00 Test Item Value Reference Range Interpretation Comments MCHC (test code = MCHC) 35.0 32.0-36.0 N [facility] CenterHmexpugLQAFBIBELN9274-28-30 10:28:00 Test Item Value Reference Range Interpretation Comments RBC (test code = RBC) 4.54 4.20-5.40 N [facility] CenterOeiobmlBPPMYRWQQS8858-61-27 10:28:00 Test Item Value Reference Range Interpretation Comments Hct (test code = Hct) 37.6 36.0-48.0 N [facility] CenterLwtgkyzURABPUSLFO8795-37-06 10:28:00 Test Item Value Reference Range Interpretation Comments MCV (test code = MCV) 82.9 81.0-99.0 N [facility] CenterHbtixrsPVJCCSWFGT5819-38-11 10:28:00 Test Item Value Reference Range Interpretation Comments MCH (test code = MCH) 29.0 pg 27.0-31.0 N [facility] CenterTwlftvaLHOROYDHKM3482-26-89 10:28:00 Test Item Value Reference Range Interpretation Comments Hgb (test code = Hgb) 13.2 12.0-16.0 N [facility] CenterLmfsexlTRTBAQUFDA2910-98-20 10:28:00 Test Item Value Reference Range Interpretation Comments Elliptocyte (test code = Slight A Elliptocyte) *ABN*(08/21/2011 04:28:00) [facility] CenterWqzqlznNIGOOAODCM1427-03-14 10:28:00 Test Item Value Reference Range Interpretation Comments Polychrom (test code = Slight (08/21/2011 N Polychrom) 04:28:00) [facility] CenterZwhitdcZRKPJPDROQ2863-56-82 10:28:00 Test Item Value Reference Range Interpretation Comments Basophils # (test code 0.0 See_Comment N [Aut omated message] The = Basophils #) system which generated this result tra nsmitted reference range : <=0.2. The reference r leo was not used to int erpret this result as normal/abnormal . [facility] CenterWtgovzgCFZQJWQRAB3379-66-32 10:28:00 Test Item Value Reference Range Interpretation Comments Hypochrom (test code = Slight (08/21/2011 N Hypochrom) 04:28:00) [facility] CenterXvphysvMSHPTXSRFM8391-26-66 10:28:00 Test Item Value Reference Range Interpretation Comments Monocytes # (test code 0.6 See_Comment N [Aut omated message] The = Monocytes #) system which generated this result tra nsmitted reference range : <=0.8. The reference r leo was not used to int erpret this result as normal/abnormal . [facility] CenterPjmfnerKUJFIJVMBD9297-64-62 10:28:00 Test Item Value Reference Range Interpretation Comments Eosinophils # (test code 0.0 See_Comment N [A utomated message] The = Eosinophils #) system whic h generated this result tra nsmitted reference range : <=0.5. The reference r leo was not used to int erpret this result as normal/abnormal . [facility] CenterLayprbtIFSFEFAMOD6154-91-03 10:28:00 Test Item Value Reference Range Interpretation Comments Segs-Bands # (test code = Segs-Bands #) 5.3 1.5-8.1 N [facility] CenterLqsilyuYKJBEBKIBG5573-70-23 10:28:00 Test Item Value Reference Range Interpretation Comments Lymphocytes # (test code = Lymphocytes 1.3 1.0-5.5 N #) [facility] CenterJiaxexdBMRGUBKGRY3481-05-91 10:28:00 Test Item Value Reference Range Interpretation Comments Basophils (test code = 0.5 See_Comment N [Aut omated message] The Basophils) system which ge nerated this result tra nsmitted reference range : <=1.0. The reference r leo was not used to int erpret this result as normal/abnormal . [facility] CenterYmbbhpyEEDIHGKZUK3206-24-42 10:28:00 Test Item Value Reference Range Interpretation Comments Monocytes (test code = Monocytes) 8.5 2.0-12.0 N [facility] CenterKqaxxpnDQOIGCOROM3155-39-89 10:28:00 Test Item Value Reference Range Interpretation Comments Eosinophils (test code = 0.3 See_Comment N [A utomated message] The Eosinophils) system which ge nerated this result tra nsmitted reference range : <=4.0. The reference r leo was not used to int erpret this result as normal/abnormal . [facility] CenterVzqbeaqRTNQVECQKK3179-94-38 10:28:00 Test Item Value Reference Range Interpretation Comments Lymphocytes (test code = Lymphocytes) 17.3 20.0-40.0 L [facility] CenterCtdrdtiGWWWADORJA4713-12-76 10:28:00 Test Item Value Reference Range Interpretation Comments Segs (test code = Segs) 73.4 45.0-75.0 N [facility] GLUCOSE HXXWYED5928-18-31 07:47:00 Test Item Value Reference Range Interpretation Comments Comment2 (test code = Comment2) Verify w/Lab [facility]cosVavlromFBRYVMCTH1671-94-09 21:58:00 Test Item Value Reference Range Interpretation Comments S Preg (test code = S Negative (08/19/2011 N Preg) 15:58:00) [facility]cosCeqdyldNFBKXALJQ8997-91-77 21:58:00 Test Item Value Reference Range Interpretation Comments Lipase Lvl (test code = Lipase Lvl) 169 73-393 N [facility] MarcosJydrwyrWEUODGGWV6819-05-52 21:58:00 Test Item Value Reference Range Interpretation Comments ALT (test code = ALT) 54 See_Comment N [Auto mated message] The system which ge nerated this result transmit rohit reference range : <=65. The reference range was not used to interpr et this result as reji l/abnormal. [facility] LakeDehojtjULNRWDOFU3231-33-48 21:58:00 Test Item Value Reference Range Interpretation Comments Alk Phos (test code = Alk Phos) 110 39-136 N [facility]cosIvrmrwmOQAEMWKQN8363-64-33 21:58:00 Test Item Value Reference Range Interpretation Comments Bili Direct (test code 0.1 See_Comment N [Aut omated message] The = Bili Direct) system which generated this result tra nsmitted reference range : <=0.3. The reference r leo was not used to int erpret this result as reji l/abnormal. [facility] LakeCgdhhxiGCWIOSEKC1798-19-11 21:58:00 Test Item Value Reference Range Interpretation Comments Bili Total (test code = Bili Total) 0.9 0.2-1.3 N [facility] LakeGagbxboXYVWWWKPL5064-06-25 21:58:00 Test Item Value Reference Range Interpretation Comments Albumin Lvl (test code = Albumin Lvl) 4.4 3.5-5.0 N [facility] LakeXsovwywHNDFWILPF2808-26-88 21:58:00 Test Item Value Reference Range Interpretation Comments Total Protein (test code = Total 8.8 6.4-8.4 H Protein) [facility]cosBvdqmjbSGPYGKOTF9558-26-31 21:58:00 Test Item Value Reference Range Interpretation Comments Bili Indirect (test 0.8 See_Comment N [Automa rohit message] The code = Bili Indirect) system which generated this result tra nsmitted reference range : <=1.0. The reference r leo was not used to int erpret this result as normal/abnormal . [facility] LakeIfslibwXHKOYQLSC9058-42-00 21:58:00 Test Item Value Reference Range Interpretation Comments AST (test code = AST) 36 See_Comment N [Auto mated message] The system which ge nerated this result transmit rohit reference range : <=37. The reference range was not used to interpr et this result as reji l/abnormal. [facility] LakeMioffhpRXPCNQDHW1292-38-23 21:58:00 Test Item Value Reference Range Interpretation Comments Globulin (test code = Globulin) 4.4 2.0-4.0 H [facility]MpbscyvYWGORAJWE7796-85-23 21:58:00 Test Item Value Reference Range Interpretation Comments A/G Ratio (test code = A/G Ratio) 1.0 0.7-1.6 N [facility] LakeMkckfxaCSZKUIMNDZ3318-20-62 21:58:00 Test Item Value Reference Range Interpretation Comments UA Bacteria (test code Occasional /HPF N = UA Bacteria) (08/19/2011 15:58:00) [facility] HospitalDjwwmceODUSHDQNNF8522-38-79 21:58:00 Test Item Value Reference Range Interpretation Comments UA RBC (test 3-5 /HPF See_Comment A [Automated mes pastor] code = UA RBC) *ABN*(08/19/2011 The syste m which 15:58:00) generated this result transmitted ref erence range: <=2. The reference range was not used to int erpret this result as normal/abnormal . [facility]MqpxgwvJRQOYCHQFU5693-64-95 21:58:00 Test Item Value Reference Range Interpretation Comments UA WBC (test code = 3 See_Comment [Automa rohit message] The UA WBC) system which ge nerated this result transmit rohit reference range : <=5. The reference range was not used to interpr et this result as reji l/abnormal. [facility] HospitalQbgosjrPSDRIUBIDM8242-41-42 21:58:00 Test Item Value Reference Range Interpretation Comments UA Mucus (test code = Few /LPF (08/19/2011 N UA Mucus) 15:58:00) [facility] HospitalVyhrrckFEPVYWDEUF2734-35-54 21:58:00 Test Item Value Reference Range Interpretation Comments UA Amorph Destiny (test Occasional /HPF A code = UA Amorph *ABN*(08/19/2011 Destiny) 15:58:00) [facility] HospitalVkzpcriZYAHKGTCCF8308-01-21 21:58:00 Test Item Value Reference Range Interpretation Comments UA Urobilinogen (test code = UA 0.2 0.1-1.0 N Urobilinogen) [facility] HospitalOqvqzkgNJXNXWXEQY9169-60-55 21:58:00 Test Item Value Reference Range Interpretation Comments UA Sq Epi (test code = Rare /LPF (08/19/2011 N UA Sq Epi) 15:58:00) [facility] HospitalZmvuidfLBMLREMUHA4527-81-46 21:58:00 Test Item Value Reference Range Interpretation Comments Micro? (test code = Performed (08/19/2011 N Micro?) 15:58:00) [facility] HospitalShxkhysFLYESUXTCW9458-92-94 21:58:00 Test Item Value Reference Range Interpretation Comments UA Leuk Est (test Negative (08/19/2011 N code = UA Leuk Est) 15:58:00) [facility] HospitalPmbhbxkFFDWDGFOMX9402-80-82 21:58:00 Test Item Value Reference Range Interpretation Comments UA Nitrite (test code Negative (08/19/2011 N = UA Nitrite) 15:58:00) [facility] HospitalOqmegroQNPJLSERFR8484-57-92 21:58:00 Test Item Value Reference Range Interpretation Comments UA pH (test code = UA pH) 5.5 1 5.0-8.[address] [facility] HospitalFvhebdmCYEQGXRFLD7402-04-73 21:58:00 Test Item Value Reference Range Interpretation Comments UA Blood (test code = Trace *ABN*(08/19/2011 A UA Blood) 15:58:00) [facility] HospitalFragsvoJOOQOMOAVG3601-67-37 21:58:00 Test Item Value Reference Range Interpretation Comments UA Bili (test code = Negative (08/19/2011 N UA Bili) 15:58:00) [facility] HospitalZgngwvgACVGHJVHAA7151-12-78 21:58:00 Test Item Value Reference Range Interpretation Comments UA Ketones (test code = 80 mg/dL A UA Ketones) *ABN*(08/19/2011 15:58:00) [facility] HospitalGbrvknwGJIRSTIULW5364-84-00 21:58:00 Test Item Value Reference Range Interpretation Comments UA Glucose (test code = >=1000 mg/dL A UA Glucose) *ABN*(08/19/2011 15:58:00) [facility] HospitalZzupraeFZVAQEXTTJ8696-12-05 21:58:00 Test Item Value Reference Range Interpretation Comments UA Protein (test code Negative (08/19/2011 N = UA Protein) 15:58:00) [facility] HospitalKzaxhjbEBDQVZQUPR9046-53-64 21:58:00 Test Item Value Reference Range Interpretation Comments UA Turbidity (test code Slight Cloudy N = UA Turbidity) (08/19/2011 15:58:00) [facility] [facility] H[id number] 21:58:00 Test Item Value Reference Range Interpretation Comments UA Spec Grav (test code = UA Spec 1.025 1 Grav) [id number] 21:58:00 Test Item Value Reference Range Interpretation Comments UA Color (test code = Yellow (08/19/2011 N UA Color) 15:58:00) [id number] 21:13:00 Test Item Value Reference Range Interpretation Comments AST (test code = AST) 23 See_Comment N [Auto mated message] The system which ge nerated this result transmit rohit reference range : <=37. The reference range was not used to interpr et this result as reji l/abnormal. [id number] 21:13:00 Test Item Value Reference Range Interpretation Comments Bili Total (test code = Bili Total) 1.0 0.2-1.3 N [id number] 21:13:00 Test Item Value Reference Range Interpretation Comments Alk Phos (test code = Alk Phos) 115 39-136 N [id number] 21:13:00 Test Item Value Reference Range Interpretation Comments ALT (test code = ALT) 56 See_Comment N [Auto mated message] The system which ge nerated this result transmit rohit reference range : <=65. The reference range was not used to interpr et this result as reji l/abnormal. [id number] 21:13:00 Test Item Value Reference Range Interpretation Comments Total Protein (test code = Total 9.0 6.4-8.4 H Protein) [id number] 21:13:00 Test Item Value Reference Range Interpretation Comments Albumin Lvl (test code = Albumin Lvl) 4.8 3.5-5.0 N [id number] 21:13:00 Test Item Value Reference Range Interpretation Comments Globulin (test code = Globulin) 4.2 2.0-4.0 H [facility]cosLcgepyoXNUDODLDO8400-31-00 21:13:00 Test Item Value Reference Range Interpretation Comments A/G Ratio (test code = A/G Ratio) 1.1 0.7-1.6 N [facility][id number] 21:13:00 Test Item Value Reference Range Interpretation Comments B/C Ratio (test code = B/C Ratio) 30 6-25 [facility]ir[facility]guaJTZDJVQKVM0386-42-19 21:13:00 Test Item Value Reference Range Interpretation Comments RBC Morph (test code = Normal (08/19/2011 N RBC Morph) 15:13:00) [id number] 21:13:00 Test Item Value Reference Range Interpretation Comments Large Plt (test code = Slight *ABN*(08/19/2011 A Large Plt) 15:13:00) [id number] 21:13:00 Test Item Value Reference Range Interpretation Comments Atypical Lymphs (test code = Atypical 0.0 N Lymphs) [facility] [id number] 21:13:00 Test Item Value Reference Range Interpretation Comments Bands (test code = 0.0 See_Comment N [Automat ed message] The Bands) system which ge nerated this result transmit rohit reference range : <=11.0. The reference r leo was not used to interpr et this result as reji l/abnormal. [id number] 21:10:00 Test Item Value Reference Range Interpretation Comments O2 Sat Roberth (test code = O2 Sat Roberth) 74.0 40.0-70.0 H [id number] 21:10:00 Test Item Value Reference Range Interpretation Comments Temp Roberth (test code = Temp Roberth) 37.0 [facility]cosMciaypeTEZDDMABI0919-10-77 21:10:00 Test Item Value Reference Range Interpretation Comments pO2 Roberth (test code = pO2 Roberth) 42 20-49 N [id number] 21:10:00 Test Item Value Reference Range Interpretation Comments HCO3 Roberth (test code = HCO3 Roberth) 17.3 22.0-26.0 L [id number] 21:10:00 Test Item Value Reference Range Interpretation Comments pH Roberth (test code = pH Roberth) 7.34 7.28-7.42 N [facility]cosWssooxoIKWOPLRIR0826-35-10 21:10:00 Test Item Value Reference Range Interpretation Comments pCO2 Roberth (test code = pCO2 Roberth) 32 38-52 L [id number] 21:10:00 Test Item Value Reference Range Interpretation Comments BE Roberth (test code = -7 See_Comment L [Automa rohit message] The BE Roberth) system which ge nerated this result transmit rohit reference range : <=2. The reference range was not used to interpr et this result as reji l/abnormal. [facility] H[id number] 20:34:00 Test Item Value Reference Range Interpretation Comments CDC-HIV 1/2 Ab (test Negative *NA*(08/19/2011 code = CDC-HIV 1/2 14:34:00) Ab) [facility]
[2022-05-18] MEDS ORDERED: FAMOTIDINE 20 MG TAB ONE (18:01)
[2022-05-18] MEDS ORDERED: METOCLOPRAMIDE 5 MG TAB ONE (18:01)
[2022-05-18] MEDS ORDERED: DIAZEPAM 10 MG/2 ML INJ SYRINGE ONE (18:32)
[2022-05-18 18:36] LABS: Hematocrit 33.1 % (36.0-45.0); Lymphocytes % 24.1 % (15.3-44.8); MCV 89.5 fL (80-100)
[2022-05-18 18:47] LABS: MPV 9.9 fL (7.6-11.3)
[2022-05-18] MEDS ORDERED: PROMETHAZINE 25 MG/SUPP PR ONE (19:01)
[2022-05-18 19:49] LABS: White Blood Cell Scan OK (OK)
[2022-05-18 19:50] LABS: Anisocytosis 1+; Blood Morphology Comment NOTED (NOT SEEN); Platelet Estimate DECR
[2022-05-18 20:07] LABS: Albumin 3.7 g/dL (3.4-5.0); Bilirubin Total 0.6 mg/dL (0.2-1.0); Magnesium 1.7 mg/dL (1.8-2.4); Protein, Total 7.7 g/dL (6.4-8.2)
[2022-05-18 20:13] LABS: Potassium 4.6 mmol/L (3.5-5.1)
[2022-05-18] MEDS ORDERED: cloNIDine HCL 0.1 MG TAB ONE (20:19)
--- NOTE | 2022-05-18 20:44 | ER ---
Nurse's Notes [facility] Name: Cathi Zaldivar Age: 41 yrs Sex: Female : 1980 Arrival Date: 05/18/2022 Time: 15:13 Bed 9 Private MD: Jose Miguel Morin Diagnosis: Nausea with vomiting, unspecified;Abdominal pain, unspecified;Hypertensive heart and chronic kidney disease without heart failure, with stage 5 chronic kidney disease, or end stage renal disease Presentation: 05/18 16:12 Chief complaint: Patient states: N/V and abd pain that began last night. Coronavirus ss screen: Client denies travel out of the [place] in the last 14 days. Ebola Screen: Patient denies exposure to infectious person. Patient denies travel to an Ebola-affected area in the 21 days before illness onset. Initial Sepsis Screen: Does the patient meet any 2 criteria? No. Patient's initial sepsis screen is negative. Does the patient have a suspected source of infection? No. Patient's initial sepsis screen is negative. Risk Assessment: Do you want to hurt yourself or someone else? Patient reports no desire to harm self or others. Onset of symptoms was May 17, 2022. 16:12 Method Of Arrival: Ambulatory ss 16:12 Acuity: JESSICA 2 ss Historical: - Allergies: 16:14 ambien; ss 16:14 Codeine; ss 16:14 GUAIFENESIN; ss 16:14 Lisinopril; ss 16:14 Morphine; ss 16:14 Nitrofurantoin Macrocrystal; ss 16:14 PENICILLINS; ss 16:14 Prolixin; ss 16:14 zolpidem tartrate; ss - PMHx: 16:14 "mental problems"; CHF; chronic kidney disease; cyclic vomiting syndrome; Diabetes - ss NIDDM; Dialysis; m-w-f; ENCEPHALOPATHY; Gastroparesis; Hypertension; ibs; liver failure; PERIPHERAL NEUROPATHY; pseudo aneurysm R groin; Seizures; - PSHx: 16:14 section; dialysis catheter R chest wall; eye removed; ss - Immunization history:: Client reports having NOT received the Covid vaccine. - Social history:: Smoking status: Patient reports the use of cigarette tobacco products, smokes one-half pack cigarettes per day. Screenin:58 Abuse screen: Denies threats or abuse. Nutritional screening: No deficits noted. em6 Nutritional screening: No deficits noted. Tuberculosis screening: No symptoms or risk factors identified. Fall Risk Total Rios Fall Scale indicates No Risk (0-24 pts). Assessment: 17:57 General: Appears uncomfortable, Behavior is cooperative. Pain: Complains of pain in em6 abdomen Pain does not radiate. Pain currently is 9 out of 10 on a pain scale. Quality of pain is described as sharp. Neuro: Level of Consciousness is awake, alert, obeys commands, Oriented to person, place, time, situation. Cardiovascular: Patient's skin is warm and dry. Respiratory: Airway is patent Respiratory effort is even, unlabored, Respiratory pattern is regular, symmetrical, Breath sounds are clear bilaterally. GI: Abdomen is non-distended, Bowel sounds present X 4 quads. Abd is soft and non tender X 4 quads. Reports nausea, vomiting. : No signs and/or symptoms were reported regarding the genitourinary system. EENT: No signs and/or symptoms were reported regarding the EENT system. Derm: No signs and/or symptoms reported regarding the dermatologic system. Musculoskeletal: Circulation, motion, and sensation intact. Range of motion: intact in all extremities. 18:11 Reassessment: fistula noted in the right lower arm. em6 19:00 Reassessment: Patient and/or family updated on plan of care and expected duration. Pain em6 level reassessed. Patient is alert, oriented x 3, equal unlabored respirations, skin warm/dry/pink. patient has nausea and vomiting. provider notified. new orders given. 20:00 Reassessment: No changes from previously documented assessment. Patient and/or family em6 updated on plan of care and expected duration. Pain level reassessed. Patient is alert, oriented x 3, equal unlabored respirations, skin warm/dry/pink. 21:02 Reassessment: No changes from previously documented assessment. Patient and/or family em6 updated on plan of care and expected duration. Pain level reassessed. Patient is alert, oriented x 3, equal unlabored respirations, skin warm/dry/pink. Vital Signs: 16:12 BP 193 / 95; Pulse 84; Resp 16; Temp 97.3(TE); Pulse Ox 100% on R/A; Weight 76.66 kg; ss Height 5 ft. 1 in. (154.94 cm); Pain 9/10; 18:06 BP 214 / 84; Pulse 80; Resp 20; Pulse Ox 100% on R/A; em6 19:29 BP 187 / 82; Pulse 86; Resp 18; Pulse Ox 100% on R/A; em6 20:24 BP 187 / 81; Pulse 85; Resp 20; Pulse Ox 98% on R/A; em6 21:06 BP 150 / 83; Pulse 84; Resp 18; Pulse Ox 99% on R/A; em6 16:12 Body Mass Index 31.93 (76.66 kg, 154.94 cm) ss 18:06 provider notified of bp. no new orders em6 ED Course: 15:13 Patient arrived in ED. mr 15:13 Jose Miguel Morin DO is Private Physician. mr 15:18 Luis Ruvalcaba PA is PHCP. cp 15:18 José Mgiuel Saleh DO is Attending Physician. cp 16:14 Triage completed. ss 16:14 Arm band placed on right wrist. ss 17:56 Monica Maddox, RN is Primary Nurse. em6 17:59 Bed in low position. Call light in reach. Side rails up X2. Pulse ox on. NIBP on. Warm em6 blanket given. 18:34 Initial lab(s) drawn, by me, sent to lab. Missed attempt(s): 24 gauge in left hand. ss Bleeding controlled, band aid applied, catheter tip intact. 21:02 No provider procedures requiring assistance completed. em6 21:07 Patient did not have IV access during this emergency room visit. em6 Administered Medications: 18:12 Drug: Pepcid (famotidine) 20 mg Route: PO; em6 19:00 Follow up: Response: No adverse reaction em6 18:12 Drug: Reglan (metoCLOPramide) 10 mg Route: PO; em6 19:00 Follow up: Response: No adverse reaction em6 18:35 Drug: Diazepam 5 mg Route: IM; Site: left gluteus; iw 19:13 Follow up: Response: No adverse reaction em6 19:06 Drug: Phenergan (promethazine) Suppository 50 mg {Note: only given 25 mg suppository em6 per Peg villalobos order .} Route: IA; 20:00 Follow up: Response: No adverse reaction em6 20:23 Drug: cloNIDine 0.1 mg Route: PO; em6 21:07 Follow up: Response: No adverse reaction em6 Medication: 21:02 VIS not applicable for this client. em6 Outcome: 20:44 Discharge ordered by . cp 21:06 Discharged to home ambulatory, with family. em6 21:06 Condition: stable 21:06 Discharge instructions given to patient, Instructed on discharge instructions, follow up and referral plans. medication usage, Demonstrated understanding of instructions, follow-up care, medications, Prescriptions given X 2. 21:07 Patient left the ED. em6 Signatures: Eric Adela rice Corinne Easton, RN RN iw Shannan Lynch RN RN ss Page, Corey, PA PA cp Martinez, Erika RN RN em6 Corrections: (The following items were deleted from the chart) 18:11 17:57 GI: Abdomen is non-distended, Bowel sounds present X 4 quads. Abd is soft and non em6 tender X 4 quads. em6 18:13 18:06 BP 214 / 84; Pulse 80bpm; Resp 20bpm; Pulse Ox 100% RA; em6 em6 19:14 18:06 BP 214 / 84; Pulse 80bpm; Resp 20bpm; Pulse Ox 100% RA; provider notified of bp. em6 ; em6
--- NOTE | 2022-05-18 20:44 | EDPHYS ---
Physician Documentation [facility] Name: Cathi Zaldivar Age: 41 yrs Sex: Female : 1980 Arrival Date: 05/18/2022 Time: 15:13 Bed 9 Private MD: Jose Miguel Morin ED Physician José Miguel Saleh HPI: 05/18 16:50 This 41 yrs old Female presents to ER via Ambulatory with complaints of cp Vomiting, Abdominal Pain. 16:50 The patient presents with abdominal pain that is diffuse. Onset: The symptoms/episode cp began/occurred last night. Associated signs and symptoms: Pertinent positives: anorexia, nausea, vomiting, Pertinent negatives: constipation, diarrhea. The symptoms are described as constant. Severity of pain: in the emergency department the pain is unchanged despite home interventions. The patient has experienced similar episodes in the past, chronically, today's symptoms are similar, to previous episodes of gastroparesis. Historical: - Allergies: 16:14 ambien; ss 16:14 Codeine; ss 16:14 GUAIFENESIN; ss 16:14 Lisinopril; ss 16:14 Morphine; ss 16:14 Nitrofurantoin Macrocrystal; ss 16:14 PENICILLINS; ss 16:14 Prolixin; ss 16:14 zolpidem tartrate; ss - PMHx: 16:14 "mental problems"; CHF; chronic kidney disease; cyclic vomiting syndrome; Diabetes - ss NIDDM; Dialysis; m-w-f; ENCEPHALOPATHY; Gastroparesis; Hypertension; ibs; liver failure; PERIPHERAL NEUROPATHY; pseudo aneurysm R groin; Seizures; - PSHx: 16:14 section; dialysis catheter R chest wall; eye removed; ss - Immunization history:: Client reports having NOT received the Covid vaccine. - Social history:: Smoking status: Patient reports the use of cigarette tobacco products, smokes one-half pack cigarettes per day. ROS: 16:55 Constitutional: Positive for poor PO intake, Negative for body aches, chills, fever. cp 16:55 Eyes: Negative for injury, pain, redness, and discharge. cp 16:55 ENT: Negative for drainage from ear(s), ear pain, sore throat, difficulty swallowing, difficulty handling secretions. 16:55 Cardiovascular: Negative for chest pain, edema, palpitations. 16:55 Respiratory: Negative for cough, shortness of breath, wheezing. 16:55 Abdomen/GI: Positive for abdominal pain, nausea and vomiting, anorexia, Negative for diarrhea, constipation, hematemesis, black/tarry stool, rectal bleeding. 16:55 Back: Negative for pain at rest, pain with movement. 16:55 Neuro: Negative for altered mental status, dizziness, headache, weakness. 16:55 All other systems are negative. Exam: 17:00 Constitutional: The patient appears in no acute distress, alert, awake, cp non-diaphoretic, non-toxic, well developed, well nourished, uncomfortable. 17:00 Head/Face: Normocephalic, atraumatic. cp 17:00 Eyes: Periorbital structures: appear normal, Conjunctiva: normal, no exudate, no injection, Sclera: no appreciated abnormality, Lids and lashes: appear normal, bilaterally. 17:00 ENT: External ear(s): are unremarkable, Nose: is normal, Mouth: Lips: moist, Oral mucosa: pink and intact, moist, Posterior pharynx: is normal, airway is patent, no erythema, no exudate. 17:00 Chest/axilla: Inspection: normal. 17:00 Cardiovascular: Rate: normal, Rhythm: regular. 17:00 Respiratory: the patient does not display signs of respiratory distress, Respirations: normal, no use of accessory muscles, no retractions, labored breathing, is not present, Breath sounds: are clear throughout, no decreased breath sounds, no stridor, no wheezing. 17:00 Abdomen/GI: Inspection: abdomen appears normal, Bowel sounds: active, all quadrants, Palpation: soft, in all quadrants, severe abdominal tenderness, in all quadrants, rebound tenderness, is not appreciated, voluntary guarding, is elicited in all quadrants, involuntary guarding, is not appreciated. 17:00 Back: CVA tenderness, is absent. 17:00 Neuro: Orientation: to person, place \\T\\ time. Mentation: is normal, Motor: moves all fours, strength is normal, Sensation: is normal. Vital Signs: 16:12 BP 193 / 95; Pulse 84; Resp 16; Temp 97.3(TE); Pulse Ox 100% on R/A; Weight 76.66 kg; ss Height 5 ft. 1 in. (154.94 cm); Pain 9/10; 18:06 BP 214 / 84; Pulse 80; Resp 20; Pulse Ox 100% on R/A; em6 19:29 BP 187 / 82; Pulse 86; Resp 18; Pulse Ox 100% on R/A; em6 20:24 BP 187 / 81; Pulse 85; Resp 20; Pulse Ox 98% on R/A; em6 21:06 BP 150 / 83; Pulse 84; Resp 18; Pulse Ox 99% on R/A; em6 16:12 Body Mass Index 31.93 (76.66 kg, 154.94 cm) ss 18:06 provider notified of bp. no new orders em6 MDM: 16:19 Patient medically screened. cp 17:00 Differential diagnosis: bowel obstruction, gastritis, non-specific abd pain, cp pancreatitis. 20:44 Data reviewed: vital signs, nurses notes, lab test result(s). 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 Response to treatment: the patient's symptoms have markedly improved after treatment, Vomiting resolved. Pain and blood pressure improved. Will discharge to home for continued monitoring. 05/18 16:46 Order name: CBC with Diff; Complete Time: 20:09 cp 05/18 20:09 Interpretation: Normal except: WBC 4.10; RBC 3.70; HGB 11.1; HCT 33.1; RDW 19.2; cp EOSINOPHIL % 5.5. 05/18 16:46 Order name: CMP; Complete Time: 20:27 cp 05/18 20:11 Interpretation: Normal except: BUN 20; CRE 4.43; GFR 12; GLOB 4.0; A/G 0.9. cp 05/18 16:46 Order name: Lipase; Complete Time: 20:27 cp 05/18 16:47 Order name: Magnesium; Complete Time: 20:27 cp 05/18 20:11 Interpretation: Abnormal: MG 1.7. 05/18 19:48 Order name: CBC Smear Scan; Complete Time: 20:09 EDMS 05/18 16:46 Order name: Labs collected and sent; Complete Time: 18:25 cp 05/18 20:13 Order name: PO challenge; Complete Time: 20:23 cp Administered Medications: 18:12 Drug: Pepcid (famotidine) 20 mg Route: PO; em6 19:00 Follow up: Response: No adverse reaction em6 18:12 Drug: Reglan (metoCLOPramide) 10 mg Route: PO; em6 19:00 Follow up: Response: No adverse reaction em6 18:35 Drug: Diazepam 5 mg Route: IM; Site: left gluteus; iw 19:13 Follow up: Response: No adverse reaction em6 19:06 Drug: Phenergan (promethazine) Suppository 50 mg {Note: only given 25 mg suppository em6 per Page luis order .} Route: VA; 20:00 Follow up: Response: No adverse reaction em6 20:23 Drug: cloNIDine 0.1 mg Route: PO; em6 21:07 Follow up: Response: No adverse reaction em6 Disposition Summary: 05/18/22 20:44 Discharge Ordered Location: Home cp Problem: an ongoing problem cp Symptoms: have improved cp Condition: Stable cp Diagnosis - Nausea with vomiting, unspecified cp - Abdominal pain, unspecified cp - Hypertensive heart and chronic kidney disease without heart failure, with stage 5 cp chronic kidney disease, or end stage renal disease Followup: cp - With: Private Physician - When: 1 - 2 days - Reason: Recheck today's complaints Discharge Instructions: - Discharge Summary Sheet cp - Abdominal Pain, Adult cp - Hypertension, Adult cp - Nausea and Vomiting, Adult cp Forms: - Medication Reconciliation Form cp - Thank You Letter cp - Antibiotic Education cp - Prescription Opioid Use cp Prescriptions: - promethazine 25 mg Rectal suppository - insert 1 suppository by RECTAL route every 6 hours As needed; 20 suppository; cp Refills: 0, Product Selection Permitted - ondansetron 8 mg Oral tablet,disintegrating - take 1 tablet by ORAL route every 12 hours; 20 tablet; Refills: 0, Product cp Selection Permitted Addendum: 05/22/2022 02:40 Co-signature as Attending Physician, José Miguel BRITTON was immediately available onsite m s3 in the emergency department for consultation in the care of the patient. Signatures: Dispatcher [employer] Corinne Marshall, RN RN iw Shannan Lynch, RN RN ss Luis Ruvalcaba PA PA cp Sims, Marcus, DO ms3 Monica Maddox, RN RN em6
[2022-05-18 22:49] VITALS: TEMP 97.3
[2022-05-18 22:54] VITALS: BP 150/83; O2SAT 99
== END 2022-05-18 21:07 | disposition home or self-care (01) ==
LOC: ER 15:10
DX: R11.2 Nausea with vomiting, unspecified (principal); R10.9 Unspecified abdominal pain; E11.22 Type 2 diabetes mellitus with diabetic chronic kidney disease; I13.2 Hypertensive heart and chronic kidney disease with heart failure and with stage 5 chronic kidney disease, or end stage renal disease; N18.5 Chronic kidney disease, stage 5; I50.9 Heart failure, unspecified; Z99.2 Dependence on renal dialysis; Z88.0 Allergy status to penicillin; Z88.5 Allergy status to narcotic agent; Z88.8 Allergy status to other drugs, medicaments and biological substances
CPT/HCPCS: 85025; 36415; 83735; 83690; 80053; 96372; 99284; J3360

== ENCOUNTER 2022-06-01 16:13 | Inpatient (IN) | payer MEDICARE, OTHER ==
--- OUTSIDE RECORDS SUMMARY | 2022-06-01 16:43 | XMS REPORT | Continuity of Care Document ---
:1980 Author Organization [facility] t Address [address] [place] [address] Care Team Providers Name Role Phone SHARPLESS Primary Care Physician Unavailable Nodal_J Attending Clinician Unavailable Deshazo_T Attending Clinician Unavailable RAJ WEST Attending Clinician Unavailable Jose Miguel Morin DO Attending Clinician Rosy BURNS, Brooke Ricci Attending Clinician [phone] Bessie Phillips Attending Clinician [phone] Forrest Cruz Attending Clinician Unavailable Melany Gilbert Attending Clinician Pat BURNS, Sivan Brand Attending Clinician Isra BURNS, Rachel Lew Attending Clinician [phone] Robe BURNS, Holden Elmore Attending Clinician Magaly BURNS, Shanda Higuera Attending Clinician Endy BURNS, Aurelio Attending Clinician Alesia Dodd Attending Clinician Joe BURNS, Mando Raphael Attending Clinician [phone] Jose Carlos BURNS, Veto Vincent Attending Clinician Pati BURNS, Juwan Attending Clinician Doc BURNS, Sofi Juárez Attending Clinician [phone] Robert MAYS, Gayle Attending Clinician Unavailable Luciana BURNS, Frankie Baig Attending Clinician Chandler Silverman Attending Clinician MD RACHEL BRASHER Attending Clinician Unavailable MD SHANDA SHAHID Attending Clinician Unavailable Leah Ureña MA Attending Clinician Unavailable Ba Attending Clinician Unavailable Tam MAYS, aMria M Attending Clinician Unavailable Anila Boles MA Attending Clinician Unavailable Sheikh KATY, Tom Attending Clinician August BURNS, Marilu Sheridan Attending Clinician Adam BURNS, Sukhjinder Argueta Attending Clinician Brisa JARRETT, Hanane Attending Clinician MD JUWAN YOU Attending Clinician Unavailable Corin MAYS, Elodia Attending Clinician Unavailable Doctor Unassigned, Lyndon Attending Clinician Unavailable MONA BHAT Attending Clinician Unavailable Missy Garcia RN Attending Clinician Unavailable Jimena Easton DO Attending Clinician Arun BURNS, Eze Vail Attending Clinician Obed Gray MD Attending Clinician Monisha Bajwa Attending Clinician MONISHA BAJWA Attending Clinician Unavailable Alexandr Diane MD Attending Clinician OZ KIMBLE Attending Clinician Unavailable Hui Wrigth Attending Clinician HUI WRIGHT Attending Clinician Unavailable JOSE LUIS GONZALEZ Attending Clinician Unavailable Lamin BURNS, Oz Bolaños Attending Clinician Jose Luis Gonzalez MD Attending Clinician Earl Sanchez DO Attending Clinician DEJA CLEANING Attending Clinician Unavailable Deja Cleaning DPM Attending Clinician [phone] Pc, [facility] Echo Room 1 - Attending Clinician Unavailable Visit, Adc Nurse Attending Clinician Unavailable 2, [facility] Attending Clinician Unavailable Mona Bhat MD [...] Arun Espitia MD, Victor J Admitting Clinician [phone] Hui Wright Admitting Clinician HUI WRIGHT Admitting Clinician Unavailable Rei Waldron Admitting Clinician Unavailable MOISE BHAKTA Admitting Clinician Unavailable Danae Cha Admitting Clinician Joe Juárez Admitting Clinician Payers Payer Name Policy Type Policy Number Effective Date Expiration Date S karla MEDICARE PART A AND [id number] 2014 2021 B 00:00:00 00:00:[id number] 2020 00:00:00 MEDICARE PART A \\T\\ [id number] 2014 B 00:00:00 [place]ID [place] [id number] 2020 00:00:00 Videostir [facility] 9ASAURAV 2021 (MEDICARE 00:00:00 REPLACEMENT HMO) MEDICARE A B [id number] 2014 00:00:00 [place] [id number] 2016 00:00:00 Problems Condition Condition Condition Status [...] ESISI/IBS- 01-03 21:41:00 l /ANEMIA D/ANEMIA 00:00: [place] Active 00 01/03/2021 [facility] NEW NEW Diagnosis Active 2020-12-24 Mem oria PATIENT GI PATIENT GI 10-14 10:39:00 l CONSULT CONSULT 00:00: Vin REFRACTORY REFRACTORY 00 GASTRO GASTRO Active 10/14/2020 [facility] Malfunctio Malfunctio Disease Active Overview : Univers n of n of 6-03 Formattin ity of arterioven arterioven 00:00: g of this [place] ous ous 00 note Medical dialysis dialysis might be Bran ch fistula, fistula, different initial initial from the encounter encounter original. Added automatic ally from request for surgery [id number] Candidiasi Candidiasi Disease Active U nivers s of vulva s of vulva 2-18 it y of and vagina and [place] [facility] Branch Screening Screening Disease Active Uni vers for breast for breast 2-18 it y of cancer cancer 00:00: [place] 00 [facility] NEW NEW Diagnosis Active 2018-07-26 Mem oria EVALUATION EVALUATION 07-12 09:39:00 l Active 00:00: Vin 07/12/2018 00 [facility] Pyogenic Pyogenic Disease Active 2017-06 Overview: Un lori granuloma granuloma 0-17 Formattin i ty of of of 00:00: g of this [place] conjunctiv conjunctiv 00 note Me dical a, right a, right might be Bran ch different from the original. Added automatic ally from request for surgery [id number] Right eye Right eye Disease Active Overview: [...] involving for macula, macula, surgery associated associated [id number] with type with type 1 diabetes 1 [...] Added automatic ally from request for surgery [id number] ESRD (end ESRD (end Disease Active Overview: Univers stage stage 6-12 Formattin ity of renal renal 00:00: g of this [place] disease) disease) 00 note Medica l on on might be Branch dialysis dialysis different from the original. Added automatic ally from request for surgery [id number] Diabetes Diabetes Disease Active Metho di mellitus [...] Added automatic ally from request for surgery [id number] Neovascula Neovascula Disease Active U nivers r [...] Added automatic ally from request for surgery [id number] Pseudotumo Pseudotumo Disease Active U nivers r cerebri r cerebri 9-25 ity of 00:00: [place] [address] Medical Branch Liver Liver Disease Active [facility] [...] [facility] [place] Hypertensi Hypertensi Disease Active C [facility] ve ve 7[facility]16 [facility] emergency emergency 00:00: Medi [place] ACUTE RESP ACUTE Diagnosis Active 2016-09-09 Memoria FAILURE RESP 2- 09:11:00 l FAILURE 00:00: Vin Active 00 07/23/2016 [facility] CONGESTION Diagnosis Active 2016-07-24 Memoria AMD CONGESTION 2-02 01:49:00 l DIARRHEA AMD 00:00: [place] DIARRHEA 00 Active 07/23/2016 [facility] Congestive Congestive Disease Active 2015-06 U T heart heart 08-11 Health failure failure 00:00: (CHF) (CHF) 00 SOB/SWELLI SOB/SWELL Diagnosis Active 2015-062016-06-10 Memoria NG ING Active 08-11 15:48:00 l 06/10/2016 00:00: Jake n [address] CHF/RENAL Diagnosis Active 2015-062016-06-24 Memoria DISEASE CHF/RENAL 08-11 15:35:00 l DISEASE 00:00: [place] Active 00 06/10/2016 [facility] Obesity Obesity Disease Active 2015-06 Univers (BMI (BMI 0-12 ity of 30-39.9) 30-39.9) 00:00: [place] [address] Medical Branch Hyperosmol Hyperosmol Disease Active 2015-06 U nivers ar ar 0-12 ity of non-ketoti non-ketoti 00:00: [place] c state in c state in 00 Me dical patient patient Branch with 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 Hyperglyce Hyperglyce Disease Active 2015-06 U nivers maryam maryam 0-11 ity of 00:00: [place] [address] Medical Branch Diabetic Diabetic Disease Active Unive rs ulcer of ulcer of 5-07 ity of both feet both [place] 00:[place] associated associated 00 Me dical with type with type Bran ch 2 diabetes 2 diabetes mellitus mellitus SANJUANA (acute SANJUANA (acute Disease Active U nivers kidney kidney 5-07 ity of injury) injury) 00:00: [place] [address] Medical Branch Depression Depression Disease Active U nivers 5-07 ity of 00:00: [place] [address] Medical Branch Bipolar 1 Bipolar 1 Disease Active Uni vers disorder disorder 5-07 ity of 00:00: [place] [address] Medical Branch Suicidal Suicidal Disease Active Unive rs ideation ideation 5-05 ity of 00:00: [place] [address] Medical Branch Diabetes Diabetes Disease Active Unive [...] cancer in cancer in 00 [facility] tawnya female female Branch Family Family Disease [...] SEIZURES 00:00: Jake gonzalez Active 00 06/26/2013 [facility] ABD PAIN ABD PAIN Diagnosis Active 2012-062013-04-19 Memoria Active 0 21:51:00 l 04/14/2013 19:00: [place] gonzalez [address] [place] GASTROPERI Diagnosis Active 2012-09-13 Memoria SIS GASTROPERI -12 15:17:00 l SIS Active 00:00: Jake gonzalez 08/02/2012 00 [facility] ABDOMINAL ABDOMINAL Diagnosis Active 2012-03-14 Memoria PAIN PAIN 03-14 16:56:00 l Active 14:00: Vin 03/14/2012 00 [facility] NAUSEA, NAUSEA, Diagnosis Active 2012-03-14 Memoria VOMITING VOMITING 03-14 13:25:00 l Active 08:00: Vin 03/14/2012 00 [facility] N/V N/V Diagnosis Active 2011-12-08 Mem oria INABILITY INABILITY 11-27 11:14:00 l TO TO 00:00: Vin TOLERATE TOLERATE 00 PO PO Active 11/28/2011 [facility] VOMITTING VOMITTING Diagnosis Active 2011-11-28 Memoria Active 11-27 16:28:00 l 11/28/2011 00:00: Jake n [address] VOMITTING, VOMITTING Diagnosis Active 2011-09-18 Memoria HIGH BLOOD , HIGH 09-17 09:45:00 l SUGAR BLOOD 00:00: Vin SUGAR 00 Active 09/18/2011 [facility] Methicilli Methicill Problem Active 2021-01-31 Memmarin n in 08-31 22:29:25 l resistant resistant 00:00: Herm naeem Staphyloco Staphyloco 00 ccus ccus aureus aureus (organism) (organism) Active 09/01/2011 Problem 01/31/2021 09/01/11 - Elbow woundProbl em added by Discern Expert. [facility] MRSA MRSA Problem Active 2012-03-16 Memor ia Active 08-31 09:11:30 l 09/01/2011 00:00: Jake n Problem 00 03/16/2012 - Elbow [id number] emily added by Discern Expert. [facility] VOMITING, VOMITING, Diagnosis Active 2011-09-01 [facility] BLOOD BLOOD 08-30 03:19:00 l SUGAR SUGAR 00:00: Vin READINGS READINGS 00 HIGH HIGH Active 08/31/2011 [facility] ELBOW ELBOW Diagnosis Active 2011-09-10 Me moria ABSCESS/HY ABSCESS/HY 08-30 16:26:00 l PERGLYCEMI PERGLYCEMI 00:00: He rmann A A Active 00 08/31/2011 [facility] Hypokalemi Hypokalem Problem Active 2012-03-16 Memoria a ia Active 08-22 09:11:30 l 08/23/2011 00:00: Jake n Problem 00 03/16/2012 [facility] DKA DKA Diagnosis Active 2011-08-24 Mem oria Active 11:27:00 l 08/19/2011 00:00: Jake gonzalez [address] VOMITING VOMITING Diagnosis Active 2011-08-19 Memoria Active 16:21:00 l 08/19/2011 00:00: Jake gonzalez [address] Final: Final: Problem 2016-08-02 [facility] janice Acute Acute 02:46:22 l respirator respirator He rmann y failure, y failure, unspecifie unspecifie d whether d whether with with hypoxia or hypoxia or hypercapni hypercapni a a 08/02/2016 [facility] Hypoglycem Hypoglyce Problem Inactiv 2012-03-16 Memoria ia maryam e 09:11:30 l Inactive Vin Problem 03/16/2012 [facility] Hypoglycem Hypoglyce Problem Inactiv 2013-04-22 Memoria ia maryam e 04:46:33 l (disorder) (disorder) He rmann Inactive Problem 04/22/2013 [facility] Gastropare Gastropar Problem Resolve 2021-01-31 Memoria sis esis d 22:29:25 l (disorder) (disorder) He rmann Resolved Problem 01/31/2021 [facility] Hypertensi Hypertens Problem Resolve 2021-01-31 Memoria ve montse d 22:29:25 l disorder, disorder, Herm naeem systemic systemic arterial arterial (disorder) (disorder) Resolved Problem 01/31/2021 [facility] Psychiatri Psychiatr Problem Resolve 2021-01-31 Memoria c ic d 22:29:25 l behavioral behavioral He rmann disability disability (finding) (finding) Resolved Problem 01/31/2021 [facility] Seizure Seizure Problem Resolve 2021-01-31 M emoria (finding) (finding) d 22:29:25 l Resolved [place] Problem 01/31/2021 [facility] Hypertensi Hypertens Problem Active 2012-03-16 Memoria on ion Active 09:11:30 l Problem [place] 03/16/2012 [facility] Hypomagnes Hypomagne Problem Active 2013-04-22 Memoria emia semia 04:46:33 l Active Vin Problem 04/22/2013 [facility] Nausea and Nausea Problem Active 2012-03-16 Memoria vomiting and 09:11:30 l vomiting Vin Active Problem 03/16/2012 [facility] ENCNTR FOR ENCNTR Diagnosis Active 2020-12-24 Memoria GENERAL FOR 10:39:00 l ADULT GENERAL [place] MEDICAL ADULT EXAM W/ MEDICAL EXAM W/ Active [facility] DMI DMI Diagnosis Active 2011-08-24 Mem oria KETOACD KETOACD 11:27:00 l UNCONTROLD UNCONTROLD He rmann Active [facility] OTHER OTHER Diagnosis Active 2011-09-10 Mem oria GENERAL GENERAL 16:26:00 l SYMPTOMS SYMPTOMS Jake n Active [facility] HEART HEART Diagnosis Active 2016-06-24 Mem oria FAILURE, FAILURE, 15:35:00 l UNSPECIFIE UNSPECIFIE He rmann D D Active [facility] ACUTE ACUTE Diagnosis Active 2016-09-09 Me moria RESPIRATOR RESPIRATOR 09:11:00 l Y FAILURE, Y FAILURE, He rmann UNSP W UNSP W HYPOXI HYPOXI Active [facility] Nausea and Nausea Problem Resolve 2021-01-31 2021-01-31 Memoria vomiting and d - 22:29:25 22:29:25 l (disorder) vomiting 00:00: Herm naeem (disorder) 00 Resolved 11/29/2011 Problem 01/31/2021 [facility] Hypokalemi Hypokalem Problem Resolve 2021-01-31 2021-01-31 Memoria a ia d 08-22 22:29:25 22:29:25 l (disorder) (disorder) 00:00: He rmann Resolved 00 08/23/2011 Problem 01/31/2021 [facility] Disorder Disorder Problem Resolve 2021-01-31 2021-01-31 Memoria of of d 08-22 22:29:25 22:29:25 l magnesium magnesium 00:00: Herm naeem metabolism metabolism 00 (disorder) (disorder) Resolved 08/23/2011 Problem 01/31/2021 [facility] Hyperglyce Hyperglyc Problem Resolve 2021-01-31 2021-01-31 Memoria maryam emia d 08-19 22:29:25 22:29:25 l (disorder) (disorder) 00:00: He rmann Resolved 00 08/20/2011 Problem 01/31/2021 [facility] Ketoacidos Ketoacido Problem Resolve 2021-01-31 2021-01-31 Memoria is in sis in d 22:29:25 22:29:25 l diabetes diabetes 00:00: Jake gonzalez mellitus mellitus 00 (disorder) (disorder) Resolved 08/19/2011 Problem 01/31/2021 [facility] DKA DKA Problem Resolve 2013-04-22 2013-04-22 Memoria (diabetic (diabetic d 04:46:33 04:46:33 l ketoacidos ketoacidos 00:00: Tyrel thompson) es) 00 Resolved 08/19/2011 Problem 04/22/2013 [facility] History of Past Illness Condition Condition Condition Status Onset Resolution Last Treating Co mments Source Name Details Category Date Date Treatment Clinician Date Discharge Discharge Problem 2014-06-28 2014-06-28 Memoria Diagnosis: Diagnosis: 06-26 16:34:37 16:34:37 l Gastropare Gastropare 06:00: Tyrel canales sis sis 00 06/26/2014 06/28/2014 [facility] Hyperglyce Hyperglyc Problem Inactiv 2012-03-16 2012-03-16 Memoria maryam emia e 3- 09:11:30 09:11:30 l Inactive 00:00: Vin 08/20/2011 00 Problem 03/16/2012 [facility] Allergies, Adverse Reactions, Alerts Allergy Allergy Status [...] [place] Tape Allergy [facility] 00:00: 00 Adhesive Propensi Active Swelling 2016-06 Tears off M ethodi Tape-Eric ty to [address] icones adverse 00:00: Hospita reaction [...] ity of 00:00: [place] 00 [facility] Branch LISINOPR Allergy Active Other [facility] [place] 01-03 [...] Reports transient liver disease with nitrofura ntoin Penicill Drug Active Shortness Of [facility] Allergy Breath [facility]03 [facility] NITROFUR Allergy Active High Anaphylaxis SL EH ANTOIN 01-03 MONOHYD/ 00:00: M-CRYST 00 PENICILL Allergy Active High Sob [facility] INS 01-03 00:00: 00 ZOLPIDEM Allergy Active Other [facility] 01-03 00:00: 00 Guaifene Propensi Active Other - See [...] Other (See forgetful Methodi ty to Comments) 1-[address] adverse 00:00: reaction( Hospit a [...] ity of 00:00: [place] 00 [facility] Codeine Propensi Active Other (See Other Met hodi ty to Comments) 01-13 reaction( st adverse 00:00: s): Other Hospit a reaction 00 (see l s to comments) drug Hydrocod Propensi Active Other (See Me thodi one-Pota ty to Comments) 01-13 st ssium adverse 00:00: Hospita Guaiaco reaction 00 l s to drug Guaifene Propensi Active Other (See Other Me thodi sin ty to Comments) 12-30 reaction( st adverse 00:00: s): Other Hospit a reaction 00 (See l s to Comments) drug , Other (see comments) , Other (See Comments) , Other (See Comments) , Other - See commentsn umbliana Prolex Propensi Active Other (See Meth frantz ty to Comments) 12-30 st adverse 00:00: Hospita reaction 00 l s to drug Guaifene Allergy Active Hives Other [place] sin to 12-30 reaction( Health substanc 00:00: s): Other e 00 (See Comments) , Other (see comments) , Other (See Comments) , Other (See Comments) , Other - See commentsn apu mbnessnum bnessnumb nessnumbn essnumbne ssnumbnes s PROLEX [...] T ins to breath 2-27 reaction( Health substan 00:00: s): e 00 HivesAirw ay closure [...] Adhesive Active Memori a Tape Tape l [place] Ambien Ambien Active Memoria l [place] Prolex Prolex Active Memoria DM DM l Vin penicill Drug Active [facility] lisinopr Drug Active [facility] Ambien Drug Active [facility] Prolixin Drug Active [facility] penicill Drug Active [facility] lisinopr Drug Active [facility] Ambien Drug Active [facility] Prolixin Drug Active [facility] Tape Other Active [facility] penicill Drug Active [facility] lisinopr Drug Active [facility] Ambien Drug Active [facility] Prolixin Drug Active [facility] codeine Drug Active [facility] penicill Drug Active [facility] lisinopr Drug Active [facility] Ambien Drug Active [facility] Prolixin Drug Active [facility] codeine Drug Active [facility] penicill Drug Active [facility] lisinopr Drug Active [facility] Ambien Drug Active [facility] Prolixin Drug Active [facility] penicill Drug Active [facility] lisinopr Drug Active [facility] Ambien Drug Active [facility] Prolixin Drug Active [facility] penicill Drug Active [facility] lisinopr Drug Active [facility] Ambien Drug Active [facility] Prolixin Drug Active [facility] Social History Social Habit Start Date Stop Date Quantity Comments Source History of tobacco Cigarette Smoker [facility] use Hospital Exposure to Yes S[facility]ism SARS-CoV-2 (event) Hospit al Alcohol intake 2021-06-18 2021-06-18 Ex-drinker [facility] 00:00:00 00:00:00 (finding) Hospital Tobacco use and 2021-05-14 2021-05-14 Smokeless tobacco Me thodist exposure 00:00:00 00:00:00 non-user Hospital Cigarettes smoked 2021-05-14 2021-05-14 [facility] current (pack per 00:00:00 00:00:00 Hospita l day) - Reported Cigarette 2021-05-14 2021-05-14 [facility] pack-years 00:00:00 00:00:00 Hospital Social History 2020-12-24 2020-12-24 [facility] 15:49:37 15:49:37 Tobacco Comment 2017-11-12 2017-11-12 5 cigarettes per Met hodist 00:00:00 00:00:00 day Hospital Sex Ass[birth year] At [birth year] [facility]ism 00:00:00 00:00:00 Hospital Smoking Status Start Date Stop Date Source Smokes tobacco daily 2021-05-14 00:00:00 [facility] Former smoker 2020-06-27 00:00:00 2020-06-27 00:00:00 [facility] Medications Ordered Filled Start Stop Current Ordering Indication Dosage Frequency Signature Comments Components Source Medication Medication Date Date Medication? Clinician (SIG) Name Name calcium Yes 1334mg Q.[id number] Take 1,334 Methodi acetate,domingo 1-18 [id number] mg by s t sphat bind, 13:02: 3D mouth 3 Hos whit (Phoslyra) 39 (three) l 667 mg (169 times a mg day. calcium)/5 mL solution cyproheptad Yes 4mg Q.[id number] Take 4 mg Methodi ine 1-18 [id number] [address] mouth [address] (PERIACTIN) 13:02: 3D (three) Hos wiht 4 mg tablet 39 times a l day as needed for allergies. buPROPion 2022-0 Yes 300mg QD Take 300 Met hodi XL 1-[address] (WELLBUTRIN 13:02: mouth Hospi ta XL) 300 MG 39 daily. l 24 hr tablet ascorbic 2022-0 Yes 500mg Q.[id number] Take 500 Methodi acid, 1-[id number] vitamin C, 13:02: 3D [...] jo-ann 39 l calcium 2021-0 Yes 667mg Q.[id number] Take 667 Methodi acetate 1-[id number] (PHOSLO) 13:02: 3D mouth [...] 39 nightly. l calcium 2021-0 Yes 1334mg Q.[id number] Take 1,334 Methodi acetate,domingo 1-18 [id number] mg by s t sphat bind, 13:02: 3D mouth 3 Hos whit (Phoslyra) 39 (three) l 667 mg (169 times a mg day. calcium)/5 mL solution cyproheptad 2021-0 Yes 4mg Q.[id number] Take 4 mg Methodi ine 1-18 [id number] [address] mouth [address] (PERIACTIN) 13:02: 3D (three) Hos whit 4 mg tablet 39 times a l day as needed for allergies. buPROPion 2021-0 Yes 300mg QD Take 300 Met hodi XL 1-[address] (WELLBUTRIN 13:02: mouth Hospi ta XL) 300 MG 39 daily. l 24 hr tablet ascorbic 2021-0 Yes 500mg Q.[id number] Take 500 Methodi acid, 1-[id number] vitamin C, 13:02: 3D [...] jo-ann 39 l calcium 2021-0 Yes 667mg Q.[id number] Take 667 Methodi acetate 1-[id number] (PHOSLO) 13:02: 3D mouth [...] daily. l D3) 5,000 unit tablet metoprolol 2022-0 Yes 50mg QD Take 50 mg M ethodi succinate -[address] XL 13:02: daily. Hospita (TOPROL-XL) 39 l 50 mg 24 hr tablet divalproex 0 Yes 500mg Q.5D Take 500 Me thodi (DEPAKOTE) 1-[address] 500 MG EC 13:02: mouth 2 Hospi ta tablet 39 (two) l times a day. pravastatin 0 Yes 40mg QD Take 40 mg Methodi (PRAVACHOL) 1-[address] 40 MG 13:02: daily. Hospita tablet 39 l busPIRone 0 Yes 15mg Q.5D Take 15 mg Me thodi (BUSPAR) 1-[address] 7.5 MG 13:02: (two) Hospita tablet 39 times a l day. 2 traZODone 0 Yes 150mg QD Take 150 Met hodi (DESYREL) 1-[address] 150 MG 13:02: mouth Hospita tablet 39 nightly. l calcium 0 Yes 1334mg Q.[id number] Take 1,334 Methodi acetate,domingo 1-18 [id number] mg by s t sphat bind, 13:02: 3D mouth 3 Hos whit (Phoslyra) 39 (three) l 667 mg (169 times a mg day. calcium)/5 mL solution cyproheptad 0 Yes 4mg Q.[id number] Take 4 mg Methodi ine 1-[id number] mouth [address] (PERIACTIN) 13:02: 3D (three) Hos whit 4 mg tablet 39 times a l day as needed for allergies. buPROPion 0 Yes 300mg QD Take 300 Met hodi XL 1-[address] (WELLBUTRIN 13:02: mouth Hospi ta XL) 300 MG 39 daily. l 24 hr tablet ascorbic 2021-0 Yes 500mg Q.[id number] Take 500 Methodi acid, 1-[id number] vitamin C, 13:02: 3D [...] jo-ann 39 l calcium 2021-0 Yes 667mg Q.[id number] Take 667 Methodi acetate 1-[id number] (PHOSLO) 13:02: 3D mouth [...] 39 nightly. l calcium 2021-0 Yes 1334mg Q.[id number] Take 1,334 Methodi acetate,domingo 1-18 [id number] mg by s t sphat bind, 13:02: 3D mouth 3 Hos whit (Phoslyra) 39 (three) l 667 mg (169 times a mg day. calcium)/5 mL solution cyproheptad 2021-0 Yes 4mg Q.[id number] Take 4 mg Methodi ine 1-18 [id number] mouth [address] (PERIACTIN) 13:02: 3D (three) Hos whit 4 mg tablet 39 times a l day as needed for allergies. buPROPion 2021-0 Yes 300mg QD Take 300 Met hodi XL 1-[address] (WELLBUTRIN 13:02: mouth Hospi ta XL) 300 MG 39 daily. l 24 hr tablet ascorbic 2021-0 Yes 500mg Q.[id number] Take 500 Methodi acid, 1-[id number] vitamin C, 13:02: 3D [...] jo-ann 39 l calcium 2021-0 Yes 667mg Q.[id number] Take 667 Methodi acetate 1-[id number] (PHOSLO) 13:02: 3D mouth [...] 39 nightly. l calcium 2021-0 Yes 1334mg Q.[id number] Take 1,334 Methodi acetate,domingo 1-18 [id number] mg by s t sphat bind, 13:02: 3D mouth 3 Hos whit (Phoslyra) 39 (three) l 667 mg (169 times a mg day. calcium)/5 mL solution cyproheptad 2021-0 Yes 4mg Q.[id number] Take 4 mg Methodi ine 1-[id number] mouth [address] (PERIACTIN) 13:02: 3D (three) Hos whit 4 mg tablet 39 times a l day as needed for allergies. buPROPion 2021-0 Yes 300mg QD Take 300 Met hodi XL 1-[address] (WELLBUTRIN 13:02: mouth Hospi ta XL) 300 MG 39 daily. l 24 hr tablet ascorbic 2021-0 Yes 500mg Q.[id number] Take 500 Methodi acid, 1-[id number] vitamin C, 13:02: 3D [...] jo-ann 39 l calcium 2021-0 Yes 667mg Q.[id number] Take 667 [facility] acetate 1-[id number] (PHOSLO) 13:02: 3D mouth [...] 39 nightly. l calcium 2021-0 Yes 1334mg Q.99328168 Take 1,334 [facility] acetate,domingo 1-18 [id number] mg by s t sphat bind, 13:02: 3D mouth 3 Hos whit (Phoslyra) 39 (three) l 667 mg (169 times a mg day. calcium)/5 mL solution cyproheptad 2021-0 Yes 4mg Q.56371767 Take 4 mg [facility] ine 1-18 [id number] by mouth [address] (PERIACTIN) 13:02: 3D (three) Hos whit 4 mg tablet 39 times a l day as needed for allergies. buPROPion 2021-0 Yes 300mg QD Take 300 Met hodi XL 1-[address] (WELLBUTRIN 13:02: mouth Hospi ta XL) 300 MG 39 daily. l 24 hr tablet ascorbic 2021-0 Yes 500mg Q.18362381 Take 500 [facility] acid, 1-[id number] vitamin C, 13:02: 3D [...] jo-ann 39 l calcium 2021-0 Yes 667mg Q.28859411 Take 667 [facility] acetate 1-[id number] (PHOSLO) 13:02: 3D mouth [...] Hospita 39 times a l day. folic 202-0 Yes 800mg Take 800 [facility] acid/vit B [...] 39 nightly. l calcium 2022-0 Yes 1334mg Q.94239778 Take 1,334 [facility] acetate,domingo 1-18 [id number] mg by s t sphat bind, 13:02: 3D mouth 3 Hos whit (Phoslyra) 39 (three) l 667 mg (169 times a mg day. calcium)/5 mL solution cyproheptad 2021-0 Yes 4mg Q.02675685 Take 4 mg [facility] ine 1-18 [id number] mouth [address] (PERIACTIN) 13:02: 3D (three) Hos whit 4 mg tablet 39 times a l day as needed for allergies. buPROPion 2021-0 Yes 300mg QD Take 300 Met hodi XL 1-[address] (WELLBUTRIN 13:02: mouth Hospi ta XL) 300 MG 39 daily. l 24 hr tablet ascorbic 2021-0 Yes 500mg Q.52890708 Take 500 [facility] acid, 1-[id number] vitamin C, 13:02: 3D [...] jo-ann 39 l calcium 2021-0 Yes 667mg Q.68911910 Take 667 [facility] acetate 1-[id number] (PHOSLO) 13:02: 3D mouth [...] 39 nightly. l calcium 2021-0 Yes 1334mg Q.51479048 Take 1,334 [facility] acetate,domingo 1-18 [id number] mg by s t sphat bind, 13:02: 3D mouth 3 Hos whit (Phoslyra) 39 (three) l 667 mg (169 times a mg day. calcium)/5 mL solution cyproheptad 0 Yes 4mg Q.15024254 Take 4 mg [facility] ine 1-18 [id number] [address] mouth [address] (PERIACTIN) 13:02: 3D (three) Hos whit 4 mg tablet 39 times a l day as needed for allergies. buPROPion 2022-0 Yes 300mg QD Take 300 Met hodi XL 1-[address] (WELLBUTRIN 13:02: mouth Hospi ta XL) 300 MG 39 daily. l 24 hr tablet ascorbic 2-0 Yes 500mg Q.79778316 Take 500 [facility] acid, 1-[id number] vitamin C, 13:02: 3D [...] jo-ann 39 l calcium 2021-0 Yes 667mg Q.24970178 Take 667 [facility] acetate 1-[id number] (PHOSLO) 13:02: 3D mouth [...] l 50 mg 24 hr tablet divalproex 0 Yes 500mg Q.5D Take 500 Me thodi [...] 39 nightly. l calcium 2021-0 Yes 1334mg Q.61109167 Take 1,334 [facility] acetate,domingo 1-18 [id number] mg by s t sphat bind, 13:02: 3D mouth 3 Hos whit (Phoslyra) 39 (three) l 667 mg (169 times a mg day. calcium)/5 mL solution cyproheptad 0 Yes 4mg Q.72824967 Take 4 mg [facility] ine 1-18 [id number] [address] mouth [address] (PERIACTIN) 13:02: 3D (three) Hos whit 4 mg tablet 39 times a l day as needed for allergies. buPROPion 0 Yes 300mg QD Take 300 Met hodi XL 1-[address] (WELLBUTRIN 13:02: mouth Hospi ta XL) 300 MG 39 daily. l 24 hr tablet ascorbic 2021-0 Yes 500mg Q.06530504 Take 500 [facility] acid, 1-[id number] vitamin C, 13:02: 3D [...] jo-ann 39 l calcium 2021-0 Yes 667mg Q.23768049 Take 667 [facility] acetate 1-[id number] (PHOSLO) 13:02: 3D mouth [...] 39 nightly. l calcium 2021-0 Yes 1334mg Q.18256552 Take 1,334 [facility]i acetate,domingo 1-18 [id number] mg by s t sphat bind, 13:02: 3D mouth 3 Hos whit (Phoslyra) 39 (three) l 667 mg (169 times a mg day. calcium)/5 mL solution cyproheptad 0 Yes 4mg Q.40270003 Take 4 mg Methodi ine 1-18 [id number] by mouth [address] (PERIACTIN) 13:02: 3D (three) Hos whit 4 mg tablet 39 times a l day as needed for allergies. buPROPion 2021-0 Yes 300mg QD Take 300 Met hodi XL 1-[address] (WELLBUTRIN 13:02: mouth Hospi ta XL) 300 MG 39 daily. l 24 hr tablet ascorbic 2021-0 Yes 500mg Q.[id number] Take 500 [facility] acid, 1-[id number] vitamin C, 13:02: 3D [...] jo-ann 39 l calcium 2021-0 Yes 667mg Q.33199821 Take 667 [facility] acetate 1-[id number] (PHOSLO) 13:02: 3D mouth [...] mouth st MG tablet 13:02: nightly. Hosp jo-nan 39 l cholecalcif 2021-0 Yes 5000U Take [...] 13:02: mouth Hospita tablet 39 nightly. l glipiZIDE 2-0 Yes 5mg Take 5 mg Met hodi (GLUCOTROL) 1-[address] 5 MG tablet 13:02: daily. Hosp jo-ann 39 l calcium 2-0 Yes 667mg Q.[id number] Take 667 [facility] acetate 1-[id number] (PHOSLO) 13:02: 3D mouth [...] 39 nightly. l calcium 2021-0 Yes 1334mg Q.31488805 Take 1,334 [facility]i acetate,domingo 1-18 [id number] mg by s t sphat bind, 13:02: 3D mouth 3 Hos whit (Phoslyra) 39 (three) l 667 mg (169 times a mg day. calcium)/5 mL solution cyproheptad 0 Yes 4mg Q.[id number] Take 4 mg [facility] ine 1-18 [id number] [address] mouth [address] (PERIACTIN) 13:02: 3D (three) Hos whit 4 mg tablet 39 times a l day as needed for allergies. buPROPion 2021-0 Yes 300mg QD Take 300 Met hodi XL 1-[address] (WELLBUTRIN 13:02: mouth Hospi ta XL) 300 MG 39 daily. l 24 hr tablet ascorbic 2021-0 Yes 500mg Q.84803020 Take 500 [facility] acid, 1-[id number] vitamin C, 13:02: 3D mouth 3 Hosp jo-ann (ascorbic 39 (three) l acid with times a sia hips) day. 500 MG tablet clonAZEPAM Yes .5mg Take 0.5 Met hodi (KlonoPIN) 1-[address] 0.5 MG 13:02: mouth as Hospita tablet 39 needed for l anxiety. apixaban 2020-06- No 10mg Q.5D Take 10 mg Me thodi (ELIQUIS) 5 2- 12- by mouth 2 s t mg tablet 18:13: 00:00 (two) Hospit a 51 :00 times a l day. Takes 10 mg in morning and 5 mg at night apixaban 2020-06 No 10mg Q.5D Take 10 mg Me thodi (ELIQUIS) 5 2- 12- by mouth 2 s t mg tablet 18:13: 00:00 (two) Hospit a 51 :00 times a l day. Takes 10 mg in morning and 5 mg at night apixaban 2020-06 No 10mg Q.5D Take 10 mg Me thodi (ELIQUIS) 5 2- 12- by mouth 2 s t mg tablet 18:13: 00:00 (two) Hospit a 51 :00 times a l day. Takes 10 mg in morning and 5 mg at night apixaban 2020-06 No 10mg Q.5D Take 10 mg Me thodi (ELIQUIS) 5 2- 12- by mouth 2 s t mg tablet 18:13: 00:00 (two) Hospit a 51 :00 times a l day. Takes 10 mg in morning and 5 mg at night apixaban 2020-06- No 10mg Q.5D Take 10 mg Me thodi (ELIQUIS) 5 2- 12- by mouth 2 s t mg [...] mg at night vancomycin 2020-06- No 750mg Q.64572100 Infuse 750 [facility] 750 mg in 07-08 [id number] mg [address] a [address] sodium 00:00: 05:59 3W venous Hospita chloride 00 :00 catheter 3 l 0.9% 250 mL (three) IVPB times a week for 19 days. Administer 3 times weekly in dialysis vancomycin 2020-06- No 750mg Q.75246576 Infuse 750 [facility] 750 mg in 07-08 [id number] mg [address] a [address] sodium 00:00: 05:59 3W venous Hospita chloride 00 :00 catheter 3 l 0.9% 250 mL (three) IVPB times a week for 19 days. Administer 3 times weekly in dialysis vancomycin 2020-06- No 750mg Q.29041185 Infuse 750 [facility] 750 mg in 07-08 [id number] mg into a [address] sodium 00:00: 05:59 3W venous Hospita chloride 00 :00 catheter 3 l 0.9% 250 mL (three) IVPB times a week for 19 days. Administer 3 times weekly in dialysis vancomycin 2020-06- No 750mg Q.50722044 Infuse 750 [facility] 750 mg in 07-08 [id number] mg into a [address] sodium 00:00: 05:59 3W venous Hospita chloride 00 :00 catheter 3 l 0.9% 250 mL (three) IVPB times a week for 19 days. Administer 3 times weekly in dialysis vancomycin 2020-06- No 750mg Q.21664032 Infuse 750 [facility] 750 mg in 07-08 [id number] mg into a [facility] sodium 00:00: 05:59 3W venous Hospita chloride 00 :00 catheter 3 l 0.9% 250 mL (three) IVPB times a week for 19 days. Administer 3 times weekly in dialysis vancomycin 2020-06- No 750mg Q.51759348 Infuse 750 [facility] 750 mg in 07-08 [id number] mg into a [address] sodium 00:00: 05:59 3W venous Hospita chloride 00 :00 catheter 3 l 0.9% 250 mL (three) IVPB times a week for 19 days. Administer 3 times weekly in dialysis vancomycin 2020-06- No 750mg Q.48633809 Infuse 750 [facility] 750 mg in 07-08 [id number] mg into a [address] sodium 00:00: 05:59 3W venous Hospita chloride 00 :00 catheter 3 l 0.9% 250 mL (three) IVPB times a week for 19 days. Administer 3 times weekly in dialysis vancomycin 2020-06- No 750mg Q.92244323 Infuse 750 [facility] 750 mg in 07-08 [id number] mg into a [address] sodium 00:00: 05:59 3W venous Hospita chloride 00 :00 catheter 3 l 0.9% 250 mL (three) IVPB times a week for 19 days. Administer 3 times weekly in dialysis vancomycin 2020-06- No 750mg Q.92331471 Infuse 750 [facility] 750 mg in 07-08 [id number] mg into a [address] sodium 00:00: 05:59 3W venous Hospita chloride 00 :00 catheter 3 l 0.9% 250 mL (three) IVPB times a week for 19 days. Administer 3 times weekly in dialysis vancomycin 2020-06- No 750mg Q.78283287 Infuse 750 [facility] 750 mg in 07-08 [id number] mg into a [address] sodium 00:00: 05:59 3W venous Hospita chloride 00 :00 catheter 3 l 0.9% 250 mL (three) IVPB times a week for 19 days. Administer 3 times weekly in dialysis vancomycin 2020-06- No 750mg Q.29097455 Infuse 750 [facility] 750 mg in 07-08 [id number] mg into a [address] sodium 00:00: 05:59 3W venous Hospita chloride 00 :00 catheter 3 l 0.9% 250 mL (three) IVPB times a week for 19 days. Administer 3 times weekly in dialysis HYDROcodone 2020-06 1{tbl} Q6H Take 1 [facility] -acetaminop 06-[address] [place] ([facility]) 00:00: 05:59 mouth Hosp jo-ann 5-325 mg 00 :00 every 6 l per tablet (six) hours as needed for severe pain for up to 5 days .acute pain. Max Daily Amount: 4 tablets HYDROcodone 2020-06 1{tbl} Q6H Take 1 [facility] -acetaminop -19 07- tablet by [facility] [place] ([facility]) 00:00: 05:59 mouth Hosp jo-ann 5-325 mg 00 :00 every 6 l per tablet (six) hours as needed for severe pain for up to 5 days .acute pain. Max Daily Amount: 4 tablets HYDROcodone 2020-06 1{tbl} Q6H Take 1 [facility] -acetaminop - tablet by [facility] ([facility]) 00:00: 05:59 mouth Hosp jo-ann 5-325 mg 00 :00 every 6 l per tablet (six) hours as needed for severe pain for up to 5 days .acute pain. Max Daily Amount: 4 tablets HYDROcodone 2020-06 1{tbl} Q6H Take 1 [facility] -acetaminop 2-29 -[address] hen (Bloomz) 00:00: 05:59 mouth Hosp jo-ann 5-325 mg 00 :00 every 6 l per tablet (six) hours as needed for severe pain for up to 5 days .acute pain. Max Daily Amount: 4 tablets HYDROcodone 2020-0628 1{tbl} Q6H Take 1 [facility] -acetaminop 2-29 -[address] hen (Bloomz) 00:00: 05:59 mouth Hosp jo-ann 5-325 mg 00 :00 every 6 l per tablet (six) hours as needed for severe pain for up to 5 days .acute pain. Max Daily Amount: 4 tablets HYDROcodone 2020-0628 1{tbl} Q6H Take 1 [facility]i -acetaminop 2-29 -[address] [place] ([facility]) 00:00: 05:59 mouth Hosp jo-ann 5-325 mg 00 :00 every 6 l per tablet (six) hours as needed for severe pain for up to 5 days .acute pain. Max Daily Amount: 4 tablets HYDROcodone 2020-06 1{tbl} Q6H Take 1 [facility]i -acetaminop 2-29 -[address] hen (Bloomz) 00:00: 05:59 mouth Hosp jo-ann 5-325 mg 00 :00 every 6 l per tablet (six) hours as needed for severe pain for up to 5 days .acute pain. Max Daily Amount: 4 tablets HYDROcodone 2020-0628 1{tbl} Q6H Take 1 [facility]i -acetaminop 2-29 01-[address] hen (Bloomz) 00:00: 05:59 mouth Hosp jo-ann 5-325 mg 00 :00 every 6 l per tablet (six) hours as needed for severe pain for up to 5 days .acute pain. Max Daily Amount: 4 tablets HYDROcodone 2020-06 [id number] 1{tbl} Q6H Take 1 [facility]i -acetaminop 2-29 -[address] hen (Bloomz) 00:00: 05:59 mouth Hosp jo-ann 5-325 mg 00 :00 every 6 l per tablet (six) hours as needed for severe pain for up to 5 days .acute pain. Max Daily Amount: 4 tablets HYDROcodone 2020-06 No [id number] 1{tbl} Q6H Take 1 [facility] -acetaminop 2-29 -[address] hen (Bloomz) 00:00: 05:59 mouth Hosp jo-ann 5-325 mg 00 :00 every 6 l per tablet (six) hours as needed for severe pain for up to 5 days .acute pain. Max Daily Amount: 4 tablets HYDROcodone 2020-06 No [id number] 1{tbl} Q6H Take 1 [facility]i -acetaminop 2-29 -[address] hen (Bloomz) 00:00: 05:59 mouth Hosp jo-ann 5-325 mg [...] mouth l daily for 30 days. gabapentin 2020-06- No 300mg QD Take [...] mg for 30 per tablet days. gabapentin 2020-2021- No 300mg QD Take 1 Met hodi [...] mg for 30 per tablet days. gabapentin 2020-2021- No 300mg QD Take 1 Met hodi [...] 30 per tablet days. HYDROcodone 2020-06 No [id number] 2{tbl} Q8H Take 2 Methodi -acetaminop 2- 12-13 tablets by [facility] ([facility]CO) 00:00: 05:59 mouth Hosp jo-ann 5-325 mg 00 :00 every 8 l per tablet (eight) hours as needed for severe pain for up to 7 days .acute pain. Max Daily Amount: 6 tablets HYDROcodone 2020-0628 2{tbl} Q8H Take 2 Methodi -acetaminop 2-05 12-13 tablets by s t hen (Bloomz) 00:00: 05:59 mouth Hosp jo-ann 5-325 mg 00 :00 every 8 l per tablet (eight) hours as needed for severe pain for up to 7 days .acute pain. Max Daily Amount: 6 tablets HYDROcodone 2020-0628 2{tbl} Q8H Take 2 Methodi -acetaminop 2-05 12-13 tablets by s t hen (Bloomz) 00:00: 05:59 mouth Hosp jo-ann 5-325 mg 00 :00 every 8 l per tablet (eight) hours as needed for severe pain for up to 7 days .acute pain. Max Daily Amount: 6 tablets HYDROcodone 2020-06 2{tbl} Q8H Take 2 Methodi -acetaminop 2-05 12-13 tablets by s t hen (Bloomz) 00:00: 05:59 mouth Hosp jo-ann 5-325 mg 00 :00 every 8 l per tablet (eight) hours as needed for severe pain for up to 7 days .acute pain. Max Daily Amount: 6 tablets HYDROcodone 2020-06 2{tbl} Q8H Take 2 Methodi -acetaminop 2-05 12-13 tablets by s t hen (Bloomz) 00:00: 05:59 mouth Hosp jo-ann 5-325 mg 00 :00 every 8 l per tablet (eight) hours as needed for severe pain for up to 7 days .acute pain. Max Daily Amount: 6 tablets HYDROcodone 2020-0628 2{tbl} Q8H Take 2 Methodi -acetaminop 2-05 12-13 tablets by s t hen (Bloomz) 00:00: 05:59 mouth Hosp jo-ann 5-325 mg 00 :00 every 8 l per tablet (eight) hours as needed for severe pain for up to 7 days .acute pain. Max Daily Amount: 6 tablets HYDROcodone 2020-06 2{tbl} Q8H Take 2 Methodi -acetaminop 2-05 12-13 tablets by s t hen (Bloomz) 00:00: 05:59 mouth Hosp jo-ann 5-325 mg 00 :00 every 8 l per tablet (eight) hours as needed for severe pain for up to 7 days .acute pain. Max Daily Amount: 6 tablets HYDROcodone 2020-06 2{tbl} Q8H Take 2 Methodi -acetaminop 2-05 12-13 tablets by s t hen (Bloomz) 00:00: 05:59 mouth Hosp jo-ann 5-325 mg 00 :00 every 8 l per tablet (eight) hours as needed for severe pain for up to 7 days .acute pain. Max Daily Amount: 6 tablets HYDROcodone 2020-0628 2{tbl} Q8H Take 2 Methodi -acetaminop 2-05 12-13 tablets by s t hen (Bloomz) 00:00: 05:59 mouth Hosp jo-ann 5-325 mg 00 :00 every 8 l per tablet (eight) hours as needed for severe pain for up to 7 days .acute pain. Max Daily Amount: 6 tablets HYDROcodone 2020-0628 2{tbl} Q8H Take 2 Methodi -acetaminop 2-05 12-13 tablets by s t hen (Bloomz) 00:00: 05:59 mouth Hosp jo-ann 5-325 mg 00 :00 every 8 l per tablet (eight) hours as needed for severe pain for up to 7 days .acute pain. Max Daily Amount: 6 tablets HYDROcodone 2020-06 2{tbl} Q8H Take 2 Methodi -acetaminop 2-05 12-13 tablets by s t hen (Bloomz) 00:00: 05:59 mouth Hosp jo-ann 5-325 mg 00 :00 every 8 l per tablet (eight) hours as needed for severe pain for up to 7 days .acute pain. Max Daily Amount: 6 tablets predniSONE 2020-06- No [id number] Take M ethodi (DELTASONE) 07-18 Prednisone s t 50 mg 00:00: 00:00 50mg 13 Hospita tablet 00 :00 hours, 7 l hours, and 1 hour prior to scheduled procedure on 05/19/2021 for contrast allergy prophylaxi s. predniSONE 2020-06 No [id number] Take M ethodi (DELTASONE) 07-18 12-05 Prednisone s t 50 mg 00:00: 00:00 50mg 13 Hospita tablet 00 :00 hours, 7 l hours, and 1 hour prior to scheduled procedure on 05/19/2021 for contrast allergy prophylaxi s. predniSONE 2020-06- No [id number] Take M ethodi (DELTASONE) 07-18 12-05 Prednisone s t 50 mg 00:00: 00:00 50mg 13 Hospita tablet 00 :00 hours, 7 l hours, and 1 hour prior to scheduled procedure on 05/19/2021 for contrast allergy prophylaxi s. predniSONE 2020-06- No [id number] Take M ethodi (DELTASONE) 07-18 12-05 Prednisone s t 50 mg 00:00: 00:00 50mg 13 Hospita tablet 00 :00 hours, 7 l hours, and 1 hour prior to scheduled procedure on 05/19/2021 for contrast allergy prophylaxi s. predniSONE 2020-06- No [id number] Take M ethodi (DELTASONE) 07-18 12-05 Prednisone s t 50 mg 00:00: 00:00 50mg 13 Hospita tablet 00 :00 hours, 7 l hours, and 1 hour prior to scheduled procedure on 05/19/2021 for contrast allergy prophylaxi s. predniSONE 2020-06- No [id number] Take M ethodi (DELTASONE) 07-18 12-05 Prednisone s t 50 mg 00:00: 00:00 50mg 13 Hospita tablet 00 :00 hours, 7 l hours, and 1 hour prior to scheduled procedure on 05/19/2021 for contrast allergy prophylaxi s. predniSONE 2020-06- No [id number] Take M ethodi (DELTASONE) 07-18 12-05 Prednisone s t 50 mg 00:00: 00:00 50mg 13 Hospita tablet 00 :00 hours, 7 l hours, and 1 hour prior to scheduled procedure on 05/19/2021 for contrast allergy prophylaxi s. predniSONE 2020-06- No [id number] Take M ethodi (DELTASONE) 07-18 12-05 Prednisone s t 50 mg 00:00: 00:00 50mg 13 Hospita tablet 00 :00 hours, 7 l hours, and 1 hour prior to scheduled procedure on 05/19/2021 for contrast allergy prophylaxi s. predniSONE 2020-06- No [id number] Take M ethodi (DELTASONE) 07-18 12-05 Prednisone s t 50 mg 00:00: 00:00 50mg 13 Hospita tablet 00 :00 hours, 7 l hours, and 1 hour prior to scheduled procedure on 05/19/2021 for contrast allergy prophylaxi s. predniSONE 2020-06- No [id number] Take M ethodi (DELTASONE) 07-18 12-05 Prednisone [...] by mouth ity of (PROTONIX) 11:08: daily. [place] 20 mg EC 01 Medical tablet Branch Cholecalcif 2020-06 Yes 5000U Take 5,000 Univers mansi, 0-03 Units by ity of Vitamin D3, 11:08: mouth. [facility] s 125 mcg 01 Medical (5,000 Branch unit) tablet proMETHazin 2020-06 Yes 25mg Take 25 mg Univers e 25 mg 0-03 by mouth. ity of tablet 11:08: [place] [address] Medical Branch aspirin 81 2020-06 Yes 81mg Take 1 Unive rs mg chewable 0-03 tablet by ity of tablet 11:08: mouth [place] [address] daily. Medical Branch divalproex 2020-06 Yes 500mg Take 500 Un lori ER 0-01 mg by ity of (DEPAKOTE 23:08: mouth 2 [place] ER) 500 mg 36 (two) Medical 24 hr times Branch tablet daily. gabapentin 2020-06 Yes 100mg Take 100 Un lori 100 mg 0-01 mg by ity of capsule 23:08: mouth 2 [place] 36 (two) Medical times Branch daily. vitamin C 2020-06 Yes 2000mg Take 2,000 Univers with sia 0-01 mg by ity of hips 23:08: mouth 2 [place] (VITAMIN C) 36 (two) Medical 1,000 mg times Branch tablet daily. metoprolol 2020-06 Yes 50mg Take 50 mg U nivers tartrate 50 0-01 by mouth ity of mg tablet 23:08: daily. [place] [address] Medical Branch folic 2020-06 Yes 800mg Take 800 Univers acid/vit B 0-01 mg by ity of complex and 23:08: mouth [place] C 36 daily. Medical (DIALYVITE Branch 800 ORAL) linagliptin 2020-06 Yes Take by Uni vers (TRADJENTA) 0-01 mouth. ity of 5 mg tablet 23:08: [place] [address] Medical Branch spironolact 2020-06 Yes 50mg Take 50 mg Univers one 50 mg 0-01 by mouth ity of tablet 23:08: daily. [address] Branch pravastatin 2020-06 Yes 40mg Take 40 mg Univers 40 mg 0-01 by mouth ity of tablet 23:08: daily. [address] Branch mv-mn/iron/ 2020-06 Yes 1{capsu Take 1 U nivers folic 0-01 le} capsule by ity of acid/herb 23:08: mouth [place] [address] 36 daily. Medical (VITAMIN D3 Branch COMPLETE ORAL) SERTraline 2020-06 Yes 50mg Take 50 mg U nivers 50 mg 0-01 by mouth ity of tablet 23:08: daily. [address] Branch calcium 2020-06 Yes 667mg Take [...] mouth 2 ity of tablet 23:08: (two) [place] [address] times Medical daily. Branch divalproex 2020-06 Yes [...] mouth ity of mg tablet 23:08: daily. [address] Branch folic 2020-06 Yes 800mg Take 800 Univers acid/vit B 0-01 mg by ity of complex and 23:08: mouth [place] C 36 daily. Medical (DIALYVITE Branch 800 ORAL) linagliptin 2020-06 Yes Take by Uni vers (TRADJENTA) 0-01 mouth. ity of 5 mg tablet 23:08: [address] Branch spironolact 2020-06 Yes 50mg Take 50 mg Univers one 50 mg 0-01 by mouth ity of tablet 23:08: daily. [address] Branch pravastatin 2020-06 Yes 40mg Take 40 mg Univers 40 mg 0-01 by mouth ity of tablet 23:08: daily. [address] mv-mn/iron/ 2020-06 Yes 1{capsu Take 1 U nivers folic 0-01 le} capsule by ity of acid/herb 23:08: mouth [place] 190 36 daily. Medical (VITAMIN D3 Branch COMPLETE ORAL) SERTraline 2020-06 Yes 50mg Take 50 mg U nivers 50 mg 0-01 by mouth ity of tablet 23:08: daily. [address] Branch calcium 2020-06 Yes 667mg Take [...] mouth 2 ity of tablet 23:08: (two) [place] [address] times Medical daily. Branch BUPROPION 2020-06- No 300mg Take 300 Un lori HCL ORAL 0-01 10-01 mg by ity of 16:33: 00:00 mouth [place] 14 :00 every Medical morning. Branch Wellbutrin XL tramadol No Notes: Not Mem oria hydrochlori 8-11 to exceed l de 50 MG 11:14: 400mg/day. Her braden Oral Tablet 00 (Same As: Ultram) Simethicone No Notes: [place] janice 11 (Same as: l 01:36: Mylicon) epoetin Yes 2,000 unit M[place]za janice giovanny-epbx 8-10 = 1 mL, l 1999 19:37: IV, [place] units/mL 00 Q--, preservativ to be e-free given at injectable post solution Dialysis sessions, 0 Refill(s) gabapentin Yes 300 mg = 1 M emoria 300 MG Oral 8-10 cap, PO, l Capsule 19:34: , # Herm naeem 00 13 cap, 0 Refill(s) amLODIPine Yes 10 mg = 1 Me moria 10 mg oral 8-10 tab, PO, l tablet 19:33: Daily, # [place] 00 30 tab, 2 Refill(s) busPIRone Yes 7.5 mg = 1 Me moria 7.5 mg oral 8-10 tab, PO, l tablet 19:33: BID, 0 [place] 00 Refill(s) buPROPion Yes 75 mg = [...] Oxide 01-23 (Same as: l 22:54: Mag-Ox [place] 00 400) Magnesium oxide 137em=361r g elemental magnesium Dose=____m g magnesium oxide (___mg elemental magnesium) Coreg No Notes: Memoria 01-23 Give with l 02:00: food. Vni 00 (Same As: Coreg) Buspar No Notes: Memoria 01-22 (Same As: l 22:00: BuSpar) Vin 00 Fentanyl No Notes: Memoria 01-22 (Same as: l 21:06: Sublimaze) [place] 00 Preservati ve free. Norvasc No Notes: [...] Memoria 8-04 (Same as: l 04:46: Sublimaze) [place] 00 Preservati ve free. Fentanyl No Notes: Memoria 8-04 (Same as: l 02:01: Sublimaze) Vin 00 Preservati ve free. Coreg No Notes: [...] ine 01-21 tab, l 18:00: Route: PO, [place] 00 Drug form: TAB, TID, Dosing Weight [...] 0.9% 01-21 Same as: l 17:31: BD [place] Posiflush Sterile propofol 10 No Notes: If M emoria mg/mL 01-21 Diprivan - l (Titrate.) 17:31: change Nidia nn IV 1,000 mg 00 bottle & tubing every 12 hr Per state nursing law propofol can only be given by a nurse if patient is intubated or being intubated (unless the nurse is a [employer] DIST[employer]OR OPERATOR). Same as: Diprivan midazolam No Route: IV, [...] No Route: IV, Me moria PH 7.4 8 Total l (ANES) 1000 14:17: Volume: Her [...] Mendoza janice 8-03 (Same as: l 13:16: [place] Jolleyann 00 Phazyme, Genasyme) calcium No See Memoria [...] n [XIFAXAN] 00 tab, 2 Refill(s), Pharmacy: [facility], 154.94, cm, 12/24/20 10:43:00 CDT, Height, 71.818, kg, 12/24/20 10:43:00 CDT, Weight {2 (480 ML Yes See Memoria Magnesium 7-06 Instructio l Sulfate 18:12: ns, take Jake n 0.0277 00 as MEQ/ML / directed, potassium give sulfate clenpiq if 0.0374 not MEQ/ML / covered by sodium insurance, sulfate # 1 ea, 0 0.257 Refill(s), MEQ/ML Oral Pharmacy: Solution) } [facility] [Suprep 808, Bowel Prep [...] day, # 90 tab, 3 Refill(s), Pharmacy: [facility] 808, 154.94, cm, 12/24/20 10:43:00 CDT, Height, 71.818, kg, 12/24/20 10:43:00 CDT, Weight Zinc 2020-0 Yes 140 mg, Memoria 7-06 PO, Daily, l 15:54: 0 [place] 00 Refill(s) Elderberry 0 Yes 0 Memoria preparation 7-06 Refill(s) l 15:54: Buspar 2020-0 Yes PO, BID, 0 Memor ia 7-06 Refill(s) l 15:53: Dialyvite 0 Yes 0 Memoria 5000 7-06 Refill(s) l 15:53: divalproex 0 Yes 500mg Q.5D Take 500 UT (Depakote 6-19 mg by Health ER) 500 MG 00:00: mouth 2 24 hr 00 (two) tablet times a day. busPIRone 2020-0 Yes 7.5mg Q.5D Take 7.5 UT (Buspar) 6-19 mg by Health 7.5 MG 00:00: mouth 2 tablet 00 (two) times a day. buPROPion 2020-0 Yes 300mg Take 300 UT XL 6-19 mg by Health (Wellbutrin 00:00: mouth 1 XL) 300 MG 00 (one) time 24 hr each day tablet in the morning. busPIRone 2020-0 Yes 7.5mg Take 7.5 Uni vers 7.5 mg 6-19 mg by ity of tablet 00:00: mouth 2 [place] 00 (two) Medical times Branch daily. traZODone 2020-0 Yes 200mg QD Take 200 UT (Desyrel) 6-19 mg by [facility] 100 MG 00:00: mouth at tablet 00 night if needed. NEEDED sertraline 0 Yes 50mg Take 50 mg U T (Zoloft) 50 6-19 by mouth 1 He alth MG tablet 00:00: (one) time 00 each day in the morning. gabapentin 0 Yes 100mg QD Take 100 UT (Neurontin) 6-19 mg by [facility] 100 MG 00:00: mouth 1 capsule 00 (one) time each day. metoprolol 0 Yes 1{tbl} QD Take 1 UT [facility] 1 (Toprol-XL) 00 (one) time 50 MG 24 hr each day. tablet ascorbic 0 Yes 500mg Q.[id number] Take 500 UT acid 5-15 [id number] mg by [facility] (Vitamin C) 00:00: 3D mouth 3 500 MG 00 (three) tablet times a day. zinc 2020-0 Yes DAILY [facility] sulfate 50 5-10 ity of mg zinc 00:00: [place] (220 mg) Medical capsule Branch sucralfate 2020-0 Yes 1{tbl} QD Take 1 UT (Carafate) 5-10 tablet by Heal th 1 g tablet 00:00: mouth 1 00 (one) time each day. ondansetron 2020-0 Yes 4mg Take 4 mg U nivers 4 mg 4-13 by mouth ity of disintegrat [place] tablet 00 [facility] GLIPIZIDE 5 Yes [id number] TAKE 1 Univers mg tablet 4-06 TABLET BY ity o f 00:00: MOUTH [place] 00 TWICE Medical DAILY Branch BEFORE BREAKFAST AND BEFORE SUPPER doxazosin 4 2020- No 4mg Take 4 mg Univers mg tablet 06-27- by mouth 2 ity of 10:52: 00:00 (two) [place] 22 :00 times Medical daily. Branch doxazosin 4 Yes 4mg Take 1 Univ ers mg tablet 1-07 tablet by ity o f 00:00: mouth at [place] 00 bedtime. Medical Branch doxazosin 4 Yes 4mg Take 1 Univ ers mg tablet -07 tablet by ity o f 00:00: mouth at [place] 00 bedtime. Medical Branch glipiZIDE 5 2019-06- No [id number] 5mg Take 1 Univers mg tablet 07-01-06 [...] by ity of tablet 00:00: mouth at [place] [address] bedtime. Medical Branch traZODone 0 Yes 150mg Take 150 Uni vers 150 mg 8-13 mg by ity of tablet 00:00: mouth at [place] [address] bedtime. Medical Branch erythromyci 2020- No [id number] .5[in_u Place 0.5 Univers n 5 mg/gram [...] l 59 Center hydrALAZINE 2017-0 Yes 100mg Q.[id number] Take [address] [facility] (APRESOLINE 7-20 [id number] mg by L ukes ) 100 MG 15:20: 3D mouth 3 Medica l tablet 59 (three) Center times daily. magnesium 2017- Yes 400mg QD Take [address] [facility] oxide 7-20 mg by [facility] (MAG-OX) 15:20: mouth Medical 400 mg 59 daily. Center tablet metoclopram 2017- Yes 10mg Q.11552147 Take [address] [facility] gadiel HCl 7-20 [id number] by mouth 3 [facility] (REGLAN) 10 15:20: [...] 3 Center mg/mL (three) injection months. sertraline 20170 Yes anxiety QD Take by C HI [...] l 59 Center hydrALAZINE 2017-0 Yes 100mg Q.72262930 Take [address] [facility] (APRESOLINE 7-20 [id number] mg by L ukes ) 100 MG 15:20: 3D mouth 3 Medica l tablet 59 (three) Center times daily. magnesium 2017-0 Yes 400mg QD Take [address] [facility] [address] oxide 7-20 mg by [facility] (MAG-OX) 15:20: mouth Medical 400 mg 59 daily. Center tablet metoclopram 2017-0 Yes 10mg Q.[id number] Take [address] [facility] gadiel HCl 7-20 [id number] by mouth 3 [facility] (REGLAN) 10 15:20: [...] l 59 Center hydrALAZINE 2017-0 Yes 100mg Q.[id number] Take [address] [facility] (APRESOLINE 7-20 [id number] mg by L ukes ) 100 MG 15:20: 3D mouth 3 Medica l tablet 59 (three) Center times daily. magnesium 2017-0 Yes 400mg QD Take [address] [facility] [address] oxide 7-20 mg by [facility] (MAG-OX) 15:20: mouth Medical 400 mg 59 daily. Center tablet metoclopram 2017-0 Yes 10mg Q.05824386 Take [address] [facility] gadiel HCl 7-20 [id number] by mouth 3 [facility] (REGLAN) 10 15:20: [...] l 59 Center hydrALAZINE 2017-0 Yes 100mg Q.75006075 Take [address] [facility] [address] (APRESOLINE 7-20 [id number] mg by L ukes ) 100 MG 15:20: 3D mouth 3 Medica l tablet 59 (three) Center times daily. magnesium 2017-0 Yes 400mg QD Take [address] [facility] [address] oxide 7-20 mg by [facility] (MAG-OX) 15:20: mouth Medical 400 mg 59 daily. Center tablet metoclopram 2017-0 Yes 10mg Q.79573457 Take [address] [facility] gadiel HCl 7-20 [id number] by mouth 3 [facility] (REGLAN) 10 15:20: [...] 15:20: daily. Medica l 59 Center hydrALAZINE 20170 Yes 100mg Q.[id number] Take [address] [facility] [address] (APRESOLINE 7-20 [id number] mg by L es ) 100 MG 15:20: 3D mouth 3 Medica l tablet 59 (three) Center times daily. magnesium 2017-0 Yes 400mg QD Take [address] [facility] [address] oxide 7-20 mg by [facility] (MAG-OX) 15:20: mouth Medical 400 mg 59 daily. Center tablet metoclopram 2017-0 Yes 10mg Q.[id number] Take [address] [facility] gadiel HCl 7-20 [id number] by mouth 3 [facility] (REGLAN) 10 15:20: [...] l 59 Center hydrALAZINE 2017-0 Yes 100mg Q.[id number] Take [address] [facility] [address] (APRESOLINE 7-20 [id number] mg by L ukes ) 100 MG 15:20: 3D mouth 3 Medica l tablet 59 (three) Center times daily. magnesium 2017- Yes 400mg QD Take [address] [facility] [address] oxide 7-20 mg by [facility] (MAG-OX) 15:20: mouth Medical 400 mg 59 daily. Center tablet metoclopram 2017-0 Yes 10mg Q.64633704 Take [address] [facility] gadiel HCl 7-20 [id number] by mouth 3 [facility] (REGLAN) 10 15:20: [...] l 59 Center hydrALAZINE 2017-0 Yes 100mg Q.48033217 Take [address] [facility] [address] (APRESOLINE 7-20 [id number] mg by L hosea ) 100 MG 15:20: 3D mouth 3 Medica l tablet 59 (three) Center times daily. magnesium 2017-0 Yes 400mg QD Take [address] [facility] oxide 7-20 mg by [facility] (MAG-OX) 15:20: mouth Medical 400 mg 59 daily. Center tablet metoclopram 2017-0 Yes 10mg Q.[id number] Take [address] [facility] gadiel HCl 7-20 [id number] by mouth 3 [facility] (REGLAN) 10 15:20: [...] l 59 Center hydrALAZINE 2017-0 Yes 100mg Q.[id number] Take [address] [facility] [address] (APRESOLINE 7-20 [id number] mg by L ukes ) 100 MG 15:20: 3D mouth 3 Medica l tablet 59 (three) Center times daily. magnesium 2017-0 Yes 400mg QD Take [address] [facility] oxide 7-20 mg by [facility] (MAG-OX) 15:20: mouth Medical 400 mg 59 daily. Center tablet metoclopram 2017-0 Yes 10mg Q.[id number] Take [address] [facility] gadiel HCl 7-20 [id number] by mouth 3 [facility] (REGLAN) 10 15:20: [...] Vin 00 30 tab, 0 Refill(s), Pharmacy: [facility] [id number] Bumex No 0.5 mg, Memoria 2- Route: PO, l 15:00: Drug form: [place] 00 TAB, Daily, Dosing Weight 92.273, kg, Start date: 07/30/16 9:00:00 ROUTE MANAGER, Duration: 30 day, Stop date: 08/28/16 9:00:00 ROUTE MANAGER Lasix No Notes: Memoria 2-08 (Same as: [...] Total Volume: 1,000, Start date: 07/26/16 12:26:00 ROUTE MANAGER, Duration: 30 day, Stop date: 08/25/16 12:25:00 ROUTE MANAGER Sodium 2016-0 No 500 mL, Memoria Chloride 2-05 500 ml/hr, l 0.154 13:30: Infuse [place] MEQ/ML 00 Over: 1 Injectable hr, Route: Solution IV, 500, Drug form: INJ, ONCE, Priority: STAT, Dosing Weight 92.273 kg, Start date: 07/26/16 7:30:00 ROUTE MANAGER, Duration: 1 doses or times, Stop date: 07/26/16 7:30:00 ROUTE MANAGER Insulin 2016-0 No 60 units) Mendoza janice regular 2- WASTE: F/P l 08:39: - Black; E Vin - Municipal Trash Bin Stable for 28 days at room temperatur e Expires in days from ____Date Insulin, No Notes: Memoria Aspart, 2-04 Roll in l Human 07:31: palms of Vin hands gently; Do not shake vigorously . (Same as: NovoLOG) "single patient use only" WASTE: F/P - Black; E - Municipal Trash Bin Stable for 28 days at room temperatur e. Expires in days from ____Date Insulin, No Notes: Memoria Aspart, 2-04 Roll in l Human 05:42: palms of [place] 00 hands gently; Do not shake vigorously . (Same as: NovoLOG) "single patient use only" WASTE: F/P - Black; E - Municipal Trash Bin Stable for 28 days at room temperatur e. Expires in days from ____Date Insulin, No Notes: Memoria Aspart, 2-04 Roll in l Human 03:28: palms of [place] 00 hands gently; Do not shake vigorously [...] Weight 92.273, kg, Start date: 07/24/16 9:00:00 ROUTE MANAGER, Duration: 30 day, Stop date: 08/22/16 9:00:00 ROUTE MANAGER 24 HR No Notes: Memoria Divalproex 2-03 [...] form: ERTAB, Daily, Start date: 07/24/16 9:00:00 ROUTE MANAGER, Duration: 30 day, Stop date: 08/22/16 9:00:00 ROUTE MANAGER Insulin No Notes: Memoria Glargine 2-03 Same [...] Notes: Memoria 2-03 (Same l 14:50: as:MORPhin [place] 00 e Sulfate) Insulin, No Notes: Memoria Aspart, 2-03 Roll in l Human 13:30: palms of [place] 00 hands gently; Do not shake vigorously . (Same as: NovoLOG) "single patient use only" WASTE: F/P - Black; E - Municipal Trash Bin Stable for 28 days at room temperatur e. Expires in days from ____Date Dilaudid No Notes: Memoria 2-03 Same as l 11:28: Dilaudid Vin 00 Insulin, No Notes: Memoria Aspart, 2- Roll in l Human 08:40: palms of Vin 00 hands gently; Do not shake vigorously . (Same as: NovoLOG) "single patient use only" WASTE: F/P - Black; E - Municipal Trash Bin Stable for 28 days at room temperatur e. Expires in days from ____Date Glucagon No 1 mg, Memoria 2- Route: IM, l 08:40: Drug form: [place] 00 PDR/INJ, PRN, Dosing Weight 92.273, kg, PRN Blood Glucose Results, Start date: 07/24/16 2:40:00 ROUTE MANAGER, Duration: 30 day, Stop date: 08/23/16 2:39:00 ROUTE MANAGER Dextrose No 25 gm, 50 Mendoza janice 50% Syringe 2-03 mL, Route: l 08:40: IVP, Drug [place] 00 Form: INJ, Dosing Weight 92.273, kg, PRN, PRN Blood Glucose Results, Start date: 07/24/16 2:40:00 ROUTE MANAGER, Duration: 30 day, Stop date: 08/23/16 2:39:00 ROUTE MANAGER Docusate No Notes: Memoria 2-03 (Same as: l 07:20: Colace) [place] 00 (Do Not Crush) Ondansetron No Notes: Mendoza janice 2-03 (Same as: l 07:20: Zofran) [place] MEDICATION WASTE Product Size: 4 mg Product Wasted: ___ mg Lasix No Notes: Memoria 07-24 (Same as: l 06:01: Lasix) Vin 00 MEDICATION WASTE Product Size: 40 mg Product Wasted: ___ mg Aspirin No Notes: Memoria 2- Take with l 05:48: food. Vin 00 Prednisone No Notes: Memor ia - Take with l 05:02: food. Albuterol No Notes: Memori a 0.833 MG/ML 07-24 (Same as: l / 04:09: Duoneb) [place] Ipratropium 00 [place] 0.167 MG/ML Inhalant Solution [DuoNeb] Furosemide 2015-06 Yes 80 mg = 2 Me moria 40 MG Oral 2-26 tab, PO, l Tablet 16:34: BID, # 120 Nidia nn 00 tab, 0 Refill(s) atorvastati 2015-06 Yes 40 mg = 1 M emoria n 40 mg 2-26 tab, PO, l oral tablet 16:34: Bedtime, # [place] 00 30 tab, 0 Refill(s) Insulin 2015-06 [...] INHALATION l 0.09 16:34: , PRN, PRN [place] MG/ACTUAT 00 as needed Metered for Dose wheezing, Inhaler use as needed for shortness of breath or wheezing, # 8 gm, 0 Refill(s) Aspirin 81 2015-06 Yes 81 mg = 1 Me moria MG Chewable 2-26 tab, PO, l Tablet 16:34: Daily, # [place] 00 30 tab, 0 Refill(s) Hydroxyzine 2015-06 [...] 2-26 (Same as: l 15:00: Lasix) October cause GI upset. Give with food or milk. Magnesium 2015-06 No Notes: Memori a Oxide 2-24 (Same as: l 13:36: Mag-Ox [place] 00 400) Magnesium oxide 988je=950u g elemental magnesium Dose=____m g magnesium oxide (___mg elemental magnesium) Magnesium 2015-06 No Notes: Memori a Oxide 2-24 (Same as: l 09:47: Mag-Ox [place] 00 400) Magnesium oxide 867io=122p g elemental magnesium Dose=____m g magnesium oxide [...] tab, PO, l tablet 15:35: Daily, 0 [place] 00 Refill(s) pravastatin 2015-06 No 40 mg = 1 M emoria 40 mg oral 2-23 tab, PO, l tablet 15:35: Daily, 0 Vin 00 Refill(s) Sertraline 2015-06 Yes 200 mg = 2 M emoria 100 MG Oral 2-23 tab, PO, l Tablet 15:27: Daily, 0 [place] [Zoloft] 00 Refill(s) pantoprazol 2015-06 Yes 40 [...] Weight 86.364, kg, Start date: 06/11/16 9:00:00 ROUTE MANAGER, Duration: 30 day, Stop date: 07/10/16 9:00:00 ROUTE MANAGER Insulin 2015-06 No Notes: Memoria Glargine 2-22 Same as: l 100 UNT/ML 15:00: Lantus) Do H ermann Injectable 00 not hold Solution insulin [Lantus] without contacting prescriber WASTE: F/P - Black; E - Municipal Trash Bin Zoloft 2015-06 No Notes: Memoria 2-22 (Same as: l 15:00: Zoloft) [place] 00 Insulin, 2015-06 No Notes: Memoria Aspart, [...] sodium, 2-22 porcine l porcine 06:00: heparin [place] 2500 UNT/ML 00 Injectable Solution Albuterol 2015-06 No Notes: Memori a 0.833 MG/ML - (Same as: l / 03:00: Duoneb) Vin Ipratropium 00 [place] 0.167 MG/ML Inhalant Solution [DuoNeb] gabapentin 2015-06 No 300 mg, Mendoza janice 300 MG Oral - Route: PO, l Capsule 03:00: Drug form: Herm naeem 00 CAP, Q12H, Dosing Weight 86.364, kg, (CrCl 30 - 59 ml/min), Start date: 06/10/16 21:00:00 ROUTE MANAGER, Duration: 30 day, Stop date: 07/10/16 9:00:00 ROUTE MANAGER divalproex 2015-06 No Notes: Memor ia sodium -22 (Same as: l 03:00: Depakote [place] 00 ER) Once daily dosing; indicated for migraines. Divalproex sodium extended-r elease tab. Do not chew or crush. "Do Not Crush" Losartan 2015-06 No Notes: Memoria 2-22 (Same as: l 03:00: Cozaar) [place] 00 Insulin, 2015-06 No Notes: Memoria Aspart, [...] Syringe 2-22 25 mL, l 00:50: Route: [place] IVP, Drug Form: INJ, Dosing Weight 86.364, kg, PRN, PRN Blood Glucose Results, Start date: 06/10/16 18:50:00 ROUTE MANAGER, Duration: 30 day, Stop date: 07/10/16 18:49:00 ROUTE MANAGER Glucagon 2015-06 No 1 mg, Memoria 2-22 Route: IM, l 00:50: Drug form: [place] 00 PDR/INJ, PRN, Dosing Weight 86.364, kg, PRN Blood Glucose Results, Start date: 06/10/16 18:50:00 ROUTE MANAGER, Duration: 30 day, Stop date: 07/10/16 18:49:00 ROUTE MANAGER Hydralazine 2015-06 No Notes: Mendoza janice 2-22 [...] Weight 86.364, kg, Start date: 06/10/16 18:06:00 ROUTE MANAGER, Stop date: 06/10/16 18:06:00 ROUTE MANAGER hydrOXYzine 2015-06 No Notes: Mendoza janice pamoate 2-21 (Same as: l 23:00: Vistaril) Furosemide 2015-06 No 60 mg, Memor ia 2-21 Route: l 22:32: IVP, Drug form: INJ, ONCE, Dosing Weight 86.364, kg, Start date: 06/10/16 16:32:00 ROUTE MANAGER, Stop date: 06/10/16 16:32:00 ROUTE MANAGER Lasix 2015-06 No Notes: Memoria 08-11 (Same as: l 17:22: Lasix) MEDICATION WASTE Product Size: 40 mg Product Wasted: _0__ mg Albuterol 2015-06 No Notes: Memori a 0.833 MG/ML 08-11 (Same as: l / 17:22: Duoneb) Ipratropium 00 [place] 0.167 MG/ML Inhalant Solution [DuoNeb] Promethazin Yes 25 mg = 1 M emoria e 06 supp, [place], l Hydrochlori 14:45: Q6H, Jake gonzalez de [...] ne 06-26 Same as: l 11:48: Dilaudid 00 hydrOXYzine Yes 0 Memori a pamoate -06 Refill(s) l 11:18: [place] 00 Dicyclomine Yes 0 Memori a 1-06 Refill(s) l 11:18: [place] 00 Ondansetron Yes 0 Memori a 1-06 Refill(s) l 11:17: Vin 00 Benztropine Yes 0 Memori a 1-06 Refill(s) l 11:17: [place] 00 Clonidine Yes 0 Memoria 1-06 Refill(s) l [...] 06/26/14 4:56:00 Lorazepam No Notes: Memori a 1- (Same as: l 10:56: Ativan) Metoclopram No [...] ondansetron No Hung Murillo 4 mg, Memoria 03-14 Marx Route: l 22:19: IVP, ONCE, [...] insulin No Blake 10 unit, 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 oria 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 6-11 Deangelo 0.1 mL, l H 02:00: Brisa Route: [place] 00 SUB-Q, Drug form: INJ, Bedtime, Start date: 11/29/11 21:00:00, Duration: 30 day, Stop date: 12/28/11 21:00:00 Insulin 2011-0 No Blake 8 unit, Mednoza janice regular 6-11 Deangelo 0.08 mL, l [...] Omidvar mL, Route: l 21:32: IVP, Drug [place] 00 form: INJ, ONCE, Start date: 11/29/11 16:32:00, Stop date: 11/29/11 16:32:00 Tylenol 2011-0 No [place] 650 mg, 2 Mem oria 6-10 Omidvar tab, l 19:16: Route: PO, Vin Drug form: TAB, Q4H, PRN Pain, Start date: 11/29/11 14:16:00, Duration: 30 day, Stop date: 12/29/11 14:15:00 insulin 2011-0 No Blake 14 unit, Mem oria 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 6-10 Deangelo 0.14 mL, l H 14:00: Brisa Route: Vin SUB-Q, Drug form: INJ, Daily, Start date: 11/29/11 9:00:00, Duration: 30 day, Stop date: 12/28/11 9:00:00 Insulin 2011-0 No Blake 10 unit, Mem oria regular 6-10 Deangelo 0.1 mL, l 14:00: Brisa Route: Vni SUB-Q, Drug form: SOLN, Daily, Start date: [...] 11/29/11 1:28:00, Stop date: 11/29/11 1:28:00 metoclopram 2011- No Nikki 10 mg, 2 Memoria gadiel 6-10 Sarah mL, Route: l 04:01: Brown IVP, Drug [place] 00 form: INJ, ONCE, Priority: STAT, Start [...] 1,000 mL - Rate: l 20:36: 1,000 [place] 00 ml/hr, Infuse over: 1 hr, Route: [...] Hughes-Jason 8 unit, M emoria 100 3-30 Vevay SUB-Q, l units/mL 17:47: Dawson Q12H, 2 He rmann injectable 42 Pu vial, solution Substituti on Allowed, SOLN Novolin N Yes Hughes-Jason 10 unit, Memoria 100 3-30 Vevay SUB-Q, l units/mL 17:46: Dawson Bedtime, H ermann subcutaneou 27 Pu 10 ml, s injection Substituti on Allowed, SUSP Novolin N Yes Hughes-Jason 14 unit, Memoria 100 3-30 Vevay SUB-Q, l units/mL 17:44: Dawson QAM, 1 Her braden subcutaneou 37 Pu vial, s injection Substituti on Allowed, SUSP magnesium No Hughes-Jason 400 mg, 1 Memoria oxide 3-30 Vevay tab, l 14:55: Dawson Route: PO, Her braden 00 Pu Drug form: TAB, ONCE, Priority: STAT, Start date: 09/18/11 9:55:00, Stop date: 09/18/11 9:55:00 Insulin No Hughes-Jason 8 unit, Mem oria regular 3-30 Vevay 0.08 mL, l 14:22: Dawson Route: Vin 00 Pu SUB-Q, Drug form: SOLN, ONCE, Priority: STAT, Start date: 09/18/11 9:22:00, Stop date: 09/18/11 9:22:00 Lactated 2012-0 No Hughes-Jason 1,000 mL, Memoria Ringers 3-30 Vevay Rate: l (Bolus) IV 14:16: Dawson 1,000 He rmann 1,000 mL 00 Pu ml/hr, Infuse over: 1 hr, Route: IV, Total Volume: 1,000, Bolus Dose, Priority: STAT, Start date: 09/18/11 9:16:00, Duration: 1 doses or times, Stop date: 09/18/11 10:15:00 Sodium 2012-0 No Hughes-Jason 1,000 mL, Me moria Chloride 3-30 Vevay Rate: l 0.9% 14:06: Dawson 1,000 Vin [...] Hughes-Jason 1,000 mL, Me moria Chloride 3-30 Vevay Rate: l 0.9% 13:56: Dawson 1,000 [place] (Bolus) IV 00 Pu ml/hr, 1000 mL Infuse over: 1 hr, Route: IV, kg, Total Volume: 1,000, Bolus Dose, Priority: STAT, Start date: 09/18/11 8:56:00, Duration: 1 doses or times, Stop date: 09/18/11 9:55:00 clindamycin 2011-0 No Eber L 300 mg, 2 Memoria 3-21 Anabelle cap, l 21:00: Route: PO, [place] 00 Drug form: CAP, Q8H, Start date: 09/09/11 16:00:00, Duration: 30 day, Stop date: 10/09/11 8:00:00 Colace 100 2011-0 Yes Luna 100 mg, 1 Memoria mg oral 3-21 Amelia cap, PO, l capsule 18:47: Zeeshan BID, 60 Her braden 19 cap, Substituti on Allowed, CAP clindamycin Yes Luna 300 mg, 2 Memoria 150 mg oral 3-21 Amelia cap, PO, l capsule 18:46: [place] Q8H, 30 Her braden 55 cap, Substituti on Allowed, CAP Friendly Yes Luna 1 tab, PO, Memoria 10/325 oral 3- Amelia Q4H, PRN, l tablet 18:46: Zeeshan 30 tab, Herm naeem 36 Pain, Substituti on Allowed, Maintenanc e, TAB Friendly No Hollie Donavan 1 tab, Mendoza janice 10/325 oral 3- Mahi Route: PO, l tablet 09:00: Drug Form: Nidia nn 00 TAB, Q4H, Start date: 09/09/11 4:00:00, Duration: 30 day, Stop date: 10/09/11 0:00:00 Colace 100 2011- No Bism[place] 100 mg, 1 Memoria mg oral 3-19 Omidvar cap, l capsule 22:00: Route: PO, Herm naeem 00 Drug form: CAP, BID, Start date: 09/07/11 17:00:00, Duration: 30 day, Stop date: 10/07/11 9:00:00 enalapril No [place] 5 mg, 1 Mem oria 3-19 Omidvar tab, l 15:30: Route: PO, [place] 00 Drug form: TAB, Daily, Start date: [...] Josefina 0.1 mL, l 14:19: Gavin Route: [place] 00 IVP, Drug form: INJ, Q2MIN, PRN [...] ne 09-06 Josefina 0.25 mL, l 14:19: [place] Route: [place] 00 IVP, Drug form: INJ, Q5Min, PRN [...] Rate: 125 l 1,000 mL 14:06: ml/hr, [place] 00 Infuse over: 8 hr, Route: IV, Dosing Weight 68.182 kg, Total Volume: 1,000, Start date: 09/07/11 9:06:00, Duration: 30 day, Stop date: 10/07/11 9:05:00 clindamycin No Maximo R 600 mg, Memoria 09-06 Arias Route: l 13:31: IVPB, [place] 00 ONCE, Start date: 09/07/11 8:31:00, Stop [...] l IV 1000 mL 13:25: ml/hr, Nidia Infuse over: 10 hr, Route: IV, kg, [...] 3-17 Omidvar tab, l 14:11: Route: PO, [place] Drug form: ERTAB, ONCE, Start date: 09/05/11 [...] Duration: 30 day, Stop date: 10/04/11 18:10:00 Friendly 2012-0 No Mahammad 1 tab, Memori a [...] 10cc/hr, l - site 1 14:50: Route: [place] 400 mL 00 NERVE BLOCK, Start date: 09/04/11 9:50:00 400 mL, Duration: 30 day, Stop date: 10/04/11 9:49:00 naloxone 2011-0 No Rosalino 0.04 mg, Me moria 3-16 Kavon 0.1 mL, l 14:50: Route: [place] 00 IVP, Drug form: INJ, Q2MIN, PRN Narcotic Reversal, Start date: 09/04/11 9:50:00, Duration: 30 day, Stop date: 10/04/11 9:49:00 Friendly 2011-0 No [place]ism[place] 1 tab, Memoria 10/325 [...] 3-15 Omidvar tab, l 13:39: Route: PO, [place] Drug form: ERTAB, ONCE, Start date: 09/03/11 8:39:00, Stop date: 09/03/11 8:39:00 Friendly 5/325 2011-0 No Rosalino 1 tab, M emoria oral tablet 3-15 Kavon Route: PO, l 05:00: Drug Form: [place] 00 TAB, Q4H, Start date: 09/03/11 0:00:00, [...] Duration: 30 day, Stop date: 10/02/11 9:00:00 Friendly 5/325 2011-0 No Rosalino 1 tab, M [...] Route: l 14:00: IVPB, Drug form: INJ, [id number], Start date: 09/02/11 9:00:00, Duration: 30 day, Stop date: 10/01/11 21:00:00 clindamycin 2011-0 No Eber L 600 mg, 4 Memoria (SCIP) 3-14 Anabelle mL, Route: l 10:00: IVPB, Vin [id number], Start date: 09/02/11 5:00:00, Duration: 3 doses or times, Stop date: 09/02/11 21:00:00 clindamycin 2011-0 No Yury 600 mg, 4 Memoria (SCIP) 3-14 Brandon mL, Route: l 04:00: Connally IVPB, Vin [id number], Start date: 09/01/11 23:00:00, Duration: 3 doses or times, Stop date: 09/02/11 15:00:00 insulin 2011- No [place] 15 unit, Mendoza janice 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 -14 Omidvar 0.15 mL, l H 02:00: Route: [...] 3-14 Barbra Route: l 01:07: Feliciano IVP, [place] 00 Q2MIN, PRN Narcotic Reversal, Start date: 09/01/11 20:07:00, Duration: 8 doses or times, Stop date: Limited # of times flumazenil No Mariaelena-Corea 0.2 mg, Memoria 3-14 Barbra Route: l 01:07: Feliciano IVP, PRN, [place] 00 PRN Benzodiaze pine Reversal, Initial dose, Start date: 09/01/11 20:07:00, Duration: 30 day, Stop date: 10/01/11 20:06:00 ondansetron 2011- No Mariaelena-Corea 4 mg, Memoria 3-14 Barbra Route: l 01:07: Feliciano IVP, ONCE, Vin 00 PRN Nausea & Vomiting, Start date: 09/01/11 20:07:00 vancomycin 2011-0 No Mele 1 gm, Mem oria 3-14 Gauvain Route: l 01:00: IVPB, Drug form: INJ, [id number], Start date: 09/01/11 20:00:00, Duration: 30 day, [...] Route: l 00:00: IVPB, Drug form: INJ, [id number], Start date: 09/01/11 19:00:00, Duration: 30 day, [...] Beni mL, Route: l 21:14: IVP, Drug [place] form: INJ, Q4H, PRN Severe Pain, Start date: 09/01/11 16:14:00, Stop date: 10/01/11 16:13:00 Lactated 2011-0 No Cesar 1,000 mL, Me moria Ringers IV 3-13 Manuel Peacham Rate: 100 l 1,000 mL 19:03: ml/hr, [place] 00 Infuse over: 10 hr, Route: IV, [...] Madden 0.08 mL, l 15:28: Gurinder Route: [place] 00 SUB-Q, Drug form: SOLN, ONCE, Priority: STAT, Start date: 09/01/11 10:28:00, Stop date: 09/01/11 10:28:00 Sodium 2011-0 No [place] 1,000 mL, Memori a Chloride 3-13 Madden Rate: l 0.9% 14:53: Gurinder 1,000 [place] (Bolus) IV 00 ml/hr, 1,000 mL Infuse [...] 09/01/11 8:20:00, Stop date: 09/01/11 8:20:00 Sodium 2012-0 No Bee L 1,000 mL, M emoria Chloride 3-13 Cruzito Rate: l 0.9% 10:41: 1,000 Vin (Bolus) IV 00 ml/hr, 1000 mL Infuse over: 1 hr, Route: IV, Dosing Weight 68.182 kg, Total Volume: 1,000, Bolus Dose, Priority: STAT, Start date: 09/01/11 5:41:00, Duration: 1 doses or times, Stop date: 09/01/11 6:40:00 ondansetron 2012-0 No Bee L 4 mg, [...] L 1,000 mL, M emoria Chloride 08-31 [place] Rate: l 0.9% 08:42: 1,000 Vin (Bolus) IV 00 ml/hr, 1000 mL Infuse over: 1 hr, Route: IV, Dosing Weight 68.182 kg, Total Volume: 1,000, Bolus Dose, Priority: STAT, Start date: 09/01/11 3:42:00, Duration: 1 doses or times, Stop date: 09/01/11 4:41:00 Insulin No Bee L 8 unit, Me moria [...] Stop date: 09/01/11 3:28:00 potassium 2011- No Brooks Noam 40 mEq, 2 Memoria chloride 3-04 [...] SOLNbefore breakfast lunch and dinner potassium No Brooks Noam 20 mEq, Memoria chloride 3-04 Akmal 100 mL, l 14:00: Route: [place] 00 IVPB, Drug form: INJ, Q2H, Start date: 08/23/11 8:00:00, Duration: 2 doses or times, Stop date: 08/23/11 10:00:00 calcium No Brooks Noam 1 gm, Mem oria chloride 3-04 Akmal Route: l 13:28: IVPB, ONCE, Priority: STAT, Start date: 08/23/11 7:28:00, Stop date: 08/23/11 7:28:00 potassium No Brooks Noam 40 mEq, Memoria chloride 3-04 Akmal Route: IV, l 12:29: ONCE, Start date: 08/23/11 6:29:00, Stop date: 08/23/11 6:29:00 potassium No Brooks Noam 60 mEq, 3 Memoria [...] Rodriguez 10 mL, l 16:25: Ahmed Route: [place] 00 IVPB, ONCE, Start date: 08/22/11 10:25:00, Stop date: 08/22/11 10:25:00 potassium 2011-0 No Brooks Noam 40 mEq, 2 Memoria chloride 20 3-03 Akmal tab, l mEq oral 15:00: Route: PO, Her braden tablet, 00 Drug form: extended ERTAB, release Daily, Start date: 08/22/11 9:00:00, Duration: 30 day, Stop date: 08/22/11 12:00:00 magnesium 2011-0 No Brooks Noam 2 gm, [...] 3-02 Akmal tab, l 15:00: Route: PO, [place] 00 Drug form: TAB, Daily, Start date: [...] mL, Route: l 17:15: Ahmed IVP, Drug [place] 00 form: INJ, Q8H, PRN Nausea, Start date: 08/20/11 11:15:00, Duration: 30 day, Stop date: 09/19/11 11:14:00 insulin 2011- No Yury 10 unit, 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 [place] Route: l H 16:00: River[place] SUB-Q, Nidia nn 00 ONCE, Start date: 08/20/11 10:00:00, Stop date: 08/20/11 10:00:00 trazodone 2011- Yes 200 mg, 2 Mem oria 100 mg oral 3 tab, PO, l tablet 15:37: Bedtime, Vin 27 90 tab, Substituti on Allowed, TAB benztropine Yes 1 mg, 1 Mem oria 1 mg oral 3- tab, PO, l tablet 15:35: BID, 60 Vin 25 tab, Substituti on Allowed, TAB Geodon 60 Yes 120 mg, 2 Mem oria mg oral 3 cap, PO, l capsule 15:35: Bedtime, Jake n 12 60 cap, Substituti on Allowed, CAP insulin 2011- No Yury 10 unit, 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 Gato Route: l H 15:00: Rivero [...] XR No Yury 75 mg, 1 Memoria 3-01 [...] l 12:47: Rivero IVPB, PRN, H erm 00 PRN Abnormal Lab Result, Start date: 08/20/11 6:47:00, Duration: 30 day, Stop date: 09/19/11 7:46:00 Insulin 2011- No Yury 6 unit, Mendoza janice regular - Gato 0.06 mL, l 09:38: Rivero Route: Nidia nn 00 SUB-Q, Drug form: SOLN, ONCE, Start date: 08/20/11 3:38:00, Stop date: 08/20/11 3:38:00 Insulin No Brooks Noam 10 unit, Memoria regular 3- Akmal SUB-Q, l 09:28: BID, Vin 23 Substituti on Allowed insulin 2011- No 10 unit, Memori a 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 3-01 SUB-Q, l H 09:26: BID, Vin 18 Substituti on Allowed NS 1,000 mL No Brooks Noam 1,000 mL, Memoria 3- Akmal Rate: [...] 2011- No Yury 18 unit, Mem oria 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 3- Gato 0.18 mL, l H [...] 2011- No Yury 1 mg, Memor ia 3-01 [...] l 08:46: Rivero IVP, Drug He rm 00 Form: INJ, PRN, PRN Blood Glucose Results, Start date: 08/20/11 2:46:00, Duration: 30 day, Stop date: 09/19/11 3:45:00 ondansetron No Hughes-Jason 4 mg, M emoria 08-19 Vevay Route: l 07:42: Dawson IVP, Drug Herm naeem 00 Pu form: INJ, ONCE, Priority: STAT, Start date: 08/20/11 1:42:00, Stop date: 08/20/11 1:42:00 GI cocktail 2011-0 No Hughes-Jason 30 ml, Memoria 08-19 Vevay Route: PO, l 05:12: Eunice Drug Form: Her braden 00 Pu SUSP, ONCE, STAT, Start date: 08/19/11 23:12:00, Stop date: 08/19/11 23:12:00 ondansetron 0 No Hughes-Jason 4 mg, M emoria 08-19 Vevay Route: PO, l 05:10: Eunice Drug form: Her braden 00 Pu TABDIS, ONCE, Priority: STAT, Start date: 08/19/11 23:10:00, Stop date: 08/19/11 23:10:00 Lactated 2011-0 No Hughes-Jason 1,000 mL, Memoria Ringers 08-19 Vevay Rate: l (Bolus) IV 05:10: Dawson 1,000 He rmann 1000 mL 00 Pu ml/hr, Infuse over: 1 hr, Route: IV, Total Volume: 1,000, Bolus Dose, Priority: STAT, Start date: 08/19/11 23:10:00, Duration: 1 doses or times, Stop date: 08/20/11 0:09:00 Insulin 2011-0 No Hughes-Jason 7 unit, Mem oria regular 3-01 Vevay 0.07 mL, l 04:15: Dawson Route: [place] 00 Pu SUB-Q, Drug form: SOLN, ONCE, Priority: STAT, Start date: 08/19/11 22:15:00, Stop date: 08/19/11 22:15:00 Geodon 60 2011-0 No Yury 60 mg, 1 M emoria mg oral 2-29 Gato cap, PO, l capsule 23:24: Rivero BID, 180 Vin 43 cap, Substituti on Allowed, CAP trazodone No 300 mg, 1 Mem oria 300 mg oral 2-29 tab, PO, l tablet 23:23: Bedtime, [place] 58 15 tab, Substituti on Allowed, TAB [...] Wong Route: IV, l 21:57: Pooja ONCE, [place] 00 Start date: 08/19/11 15:57:00, Stop date: [...] 2020-02-20 Completed Universit [facility] of Vaccine 00:00:00 [facility] Influenza Virus 2020-02-20 Completed Universit y of Vaccine 00:00:00 [facility] TDAP (ADACEL) VACCINE 2019-07-25 Completed Uni versity of 00:00:00 [facility] Meningococcal B, OMV 2019-07-25 Completed Univ ersity of 00:00:00 [facility] Meningococcal 2019-07-25 Completed [facility] of Polysaccharide 00:00:00 [facility] (groups A, C, Y and Branc h W-135) conjugate vaccine (MCV4P) TDAP (ADACEL) VACCINE 2019-07-25 Completed Uni versity of 00:00:00 [facility] Meningococcal B, OMV 2019-07-25 Completed Univ ersity of 00:00:00 [facility] Meningococcal 2019-07-25 Completed University of Polysaccharide 00:00:00 [...] ial Vin 00:00:00 influenza virus 2018-03-29 Completed [facility] Vin vaccine, inactivated 00:00:00 hepatitis B vaccine 2017-11-26 Completed Memor ial Vin 00:00:00 influenza virus 2017-10-25 Completed [facility] Vin vaccine, inactivated 00:00:00 pneumococcal 2017-10-25 Completed [facility] braden 23-valent vaccine 00:00:00 Influenza Virus 2017-06-22 Completed Universit y of Vaccine Quad IM 3+ 00:00:00 [facility] Influenza Virus 2017-06-22 Completed Universit y of Vaccine Quad IM 3+ 00:00:00 [facility] Influenza Virus 2016-04-02 Completed Universit y of Vaccine Quad IM 3+ 00:00:00 [facility] Influenza Virus 2016-04-02 Completed Universit y of Vaccine Quad IM 3+ 00:00:00 [facility] Influenza Virus 2015-10-28 Completed Universit y of Vaccine Quad IM 3+ 00:00:00 [facility] Influenza Virus 2015-10-28 Completed Universit y of Vaccine Quad IM 3+ 00:00:00 [facility] Vital Signs Vital Name Observation Time Observation [...] 2020-06-27 16:33:00 171 mm[Hg] Univer sity of [facility] Diastolic blood 2020-06-27 16:33:00 98 mm[Hg] Unive rsity of [facility] Heart rate 2020-06-27 16:33:00 71 /min Universi ty [facility] Respiratory rate 2020-06-27 16:29:00 19 /min Univ ersity of [facility] Body height 2020-06-27 16:29:00 154.9 cm Universi ty [facility] Body weight 2020-06-27 16:29:00 77.293 kg Universi ty [facility] BMI 2020-06-27 16:29:00 32.20 [facility]m2 [facility] saturation in 2020-06-27 16:29:00 99 /min University of Arterial blood by [facility] Pulse oximetry Branch Systolic blood 2020-06-27 16:33:00 171 mm[Hg] Univer sity of pressure [facility] Diastolic blood 2020-06-27 16:33:00 98 mm[Hg] Unive rsity of pressure [facility] Heart rate 2020-06-27 16:33:00 71 /min Universi ty of [facility] Respiratory rate 2020-06-27 16:29:00 19 /min Univ ersity of [facility] Body height 2020-06-27 16:29:00 154.9 cm Universi ty of [facility] Body weight 2020-06-27 16:29:00 77.293 kg Universi ty of [facility] BMI 2020-06-27 16:29:00 32.20 kg/m2 Universi ty [facility] Oxygen saturation in 2020-06-27 16:29:00 99 /min University of Arterial blood by [facility] Pulse oximetry Branch Height/Length 2021-07-08 11:50:13 154.9 cm Measured Weight Dosing 2021-07-08 11:50:13 85.00 kg Height/Length 2021-07-08 11:47:31 154.9 cm Measured Weight Dosing 2021-07-08 11:47:31 85.00 kg Height/Length 2021-07-08 11:47:20 154.9 cm Measured Weight Dosing 2021-07-08 11:47:20 85.00 kg Systolic blood 2021-07-08 19:43:00 189 mm[Hg] Method [facility] pressure Diastolic blood 2021-07-08 19:43:00 104 mm[Hg] [facility] pressure Heart rate 2021-07-08 18:56:00 74 /min [facility] Body temperature 2021-07-08 18:56:00 36.39 [facility] Body height 2021-07-08 18:56:00 157.5 cm [facility] Body weight 2021-07-08 18:56:00 72.938 kg [facility] BMI 2021-07-08 18:56:00 29.41 kg/m2 [facility] Oxygen saturation in 2021-07-08 18:56:00 100 /min [facility] Arterial blood by Pulse oximetry Respiratory rate 2021-06-18 16:36:00 11 /min Meth [facility] Systolic (mm Hg) 2021-01-29 20:03:00 Mendoza rial Vin Diastolic (mm Hg) 2021-01-29 20:03:00 Mem orial Vin Systolic (mm Hg) 2021-01-29 19:40:00 Mendoza rial [place] Diastolic (mm Hg) 2021-01-29 19:40:00 Mem orial [place] Systolic (mm Hg) 2021-01-29 18:05:00 Mendoza rial Vin Diastolic (mm Hg) 2021-01-29 18:05:00 Mem orial Vin Respitory Rate 2021-01-29 16:55:00 Memori al Vin Temperature Oral (F) 2021-01-29 16:45:00 97.3 F [facility] [place] Respitory Rate 2021-01-29 16:45:00 Memori al [place] Respitory Rate 2021-01-29 16:30:00 Memori al Vin Temperature Oral (F) 2021-01-29 13:10:00 97.6 F [facility] [place] Systolic (mm Hg) 2021-01-27 05:00:00 Mendoza rial [place] Diastolic (mm Hg) 2021-01-27 05:00:00 Mem orial Vin Systolic (mm Hg) 2021-01-27 04:00:00 Mendoza rial [place] Diastolic (mm Hg) 2021-01-27 04:00:00 Mem orial [place] Systolic (mm Hg) 2021-01-27 03:00:00 Mendoza rial [place] Diastolic (mm Hg) 2021-01-27 03:00:00 Mem orial Vin Respitory Rate 2021-01-26 19:00:00 Memori al Vin Respitory Rate 2021-01-26 18:00:00 Memori al Vin Respitory Rate 2021-01-26 17:00:00 Memori al [place] Temperature Oral (F) 2021-01-22 13:00:00 97.6 F [facility] [place] Height 2021-01-21 18:25:00 149.86 cm [facility] [place] Weight 2021-01-21 18:25:00 Memorial Vin BMI Calculated 2021-01-21 18:25:00 Memori al [place] Height 2021-01-21 17:09:00 157.48 cm Memorial Vin Height 2021-01-21 13:09:00 157.48 cm Memorial Vin Weight 2021-01-21 13:09:00 [facility] [place] BMI Calculated 2021-01-21 13:09:00 Memori al [place] Heart Rate 2021-01-21 12:50:00 [facility] Vin Systolic (mm Hg) 2020-12-24 15:43:00 Mendoza rial Vin Diastolic (mm Hg) 2020-12-24 15:43:00 Mem orial Vin Heart Rate 2020-12-24 15:43:00 Memorial Vin Height 2020-12-24 15:43:00 154.94 cm [facility] [place] Weight 2020-12-24 15:43:00 [facility] Vin BMI Calculated 2020-12-24 15:43:00 Memori al Vin Systolic (mm Hg) 2016-07-30 14:00:00 Mendoza rial Vin Diastolic (mm Hg) 2016-07-30 14:00:00 Mem orial [place] Respitory Rate 2016-07-30 14:00:00 Memori al [place] Heart Rate 2016-07-30 14:00:00 Memorial Vin Temperature Oral (F) 2016-07-30 14:00:00 97.4 F [facility] [place] Systolic (mm Hg) 2016-07-30 10:45:00 Mendoza rial Vin Diastolic (mm Hg) 2016-07-30 10:45:00 Mem orial Vin Heart Rate 2016-07-30 10:45:00 Memorial Vin Temperature Oral (F) 2016-07-30 10:45:00 97.2 F [facility] Vin Respitory Rate 2016-07-30 10:45:00 Memori al Vin Heart Rate 2016-07-30 06:35:00 [facility] [place] Temperature Oral (F) 2016-07-30 06:35:00 97.0 F [facility] [place] Respitory Rate 2016-07-30 06:35:00 Memori al Vin Systolic (mm Hg) 2016-07-30 06:35:00 Mendoza rial Vin Diastolic (mm Hg) 2016-07-30 06:35:00 Mem orial [place] Weight 2016-07-24 02:13:00 [facility] Vin BMI Calculated 2016-07-24 02:13:00 Memori al Vin Height 2016-07-24 02:13:00 160.02 cm [facility] Vin Respitory Rate 2016-06-15 15:00:00 Memori al Vin Systolic (mm Hg) 2016-06-15 15:00:00 Mendoza rial [place] Diastolic (mm Hg) 2016-06-15 15:00:00 Mem orial [place] Respitory Rate 2016-06-15 14:00:00 Memori al Vin Systolic (mm Hg) 2016-06-15 14:00:00 Mendoza rial Vin Diastolic (mm Hg) 2016-06-15 14:00:00 Mem orial [place] Respitory Rate 2016-06-15 13:29:00 Memori al [place] Systolic (mm Hg) 2016-06-15 13:29:00 Mendoza rial [place] Diastolic (mm Hg) 2016-06-15 13:29:00 Mem orial [place] Temperature Oral (F) 2016-06-14 10:56:00 97.1 F [facility] [place] Temperature Oral (F) 2016-06-14 06:55:00 97.1 F [facility] [place] Temperature Oral (F) 2016-06-12 10:00:00 96.8 F [facility] Vin Weight 2016-06-11 04:25:00 [facility] [place] Height 2016-06-11 04:25:00 160.02 cm [facility] Vin BMI Calculated 2016-06-11 04:25:00 Memori al [place] Heart Rate 2016-06-11 02:04:00 [facility] Vin Heart Rate 2016-06-11 00:00:00 [facility] [place] Heart Rate 2016-06-10 20:30:00 [facility] Vin Weight 2016-06-10 16:04:00 [facility] Vin BMI Calculated 2016-06-10 16:04:00 Memori al [place] Height 2016-06-10 16:04:00 160.02 cm [facility] Vin Temperature Oral (F) 2014-06-26 15:12:00 98.0 F [facility] [place] Systolic (mm Hg) 2014-06-26 15:12:00 Mendoza rial [place] Heart Rate 2014-06-26 15:12:00 [facility] [place] Diastolic (mm Hg) 2014-06-26 15:12:00 Mem orial Vin Respitory Rate 2014-06-26 15:12:00 Memori al [place] Systolic (mm Hg) 2014-06-26 13:53:00 Mendoza rial Vin Diastolic (mm Hg) 2014-06-26 13:53:00 Mem orial Vin Respitory Rate 2014-06-26 13:53:00 Memori al Vin Temperature Oral (F) 2014-06-26 13:53:00 98.0 F [facility] Vin Temperature Oral (F) 2014-06-26 12:37:00 98.2 F [facility] [place] Respitory Rate 2014-06-26 12:37:00 Memori al [place] Systolic (mm Hg) 2014-06-26 12:37:00 Mendoza rial [place] Diastolic (mm Hg) 2014-06-26 12:37:00 Mem orial Vin Heart Rate 2014-06-26 09:21:00 [facility] Vin Heart Rate 2014-06-26 06:08:00 [facility] Vin Height 2014-06-26 05:35:00 154.94 cm [facility] [place] Weight 2014-06-26 05:35:00 [facility] Vin BMI Calculated 2014-06-26 05:35:00 Memori al Vin Respitory Rate 2013-04-15 06:10:00 Memori al [place] Diastolic (mm Hg) 2013-04-15 06:10:00 Mem orial Vin Heart Rate 2013-04-15 06:10:00 [facility] Vin Systolic (mm Hg) 2013-04-15 06:10:00 Mendoza rial [place] Temperature Oral (F) 2013-04-15 06:10:00 98.7 F [facility] Vin Respitory Rate 2013-04-15 05:37:00 Memori al Vin Diastolic (mm Hg) 2013-04-15 05:37:00 Mem orial Vin Systolic (mm Hg) 2013-04-15 05:37:00 Mendoza rial Vin Temperature Oral (F) 2013-04-15 05:37:00 98.2 F [facility] Vin Heart Rate 2013-04-15 05:37:00 [facility] Vin Height 2013-04-15 02:06:00 160.02 cm [facility] Vin Weight 2013-04-15 02:06:00 [facility] [place] Temperature Oral (F) 2013-04-15 02:06:00 98.6 F [facility] [place] Respitory Rate 2013-04-15 02:06:00 Memori al [place] Heart Rate 2013-04-15 02:06:00 [facility] [place] Diastolic (mm Hg) 2013-04-15 02:06:00 Mem orial Vin Systolic (mm Hg) 2013-04-15 02:06:00 Mendoza rial Vin Weight 2012-03-14 21:33:00 [facility] [place] Systolic (mm Hg) 2011-12-01 00:33:00 Mendoza rial [place] Respitory Rate 2011-12-01 00:33:00 Memori al Vin Heart Rate 2011-12-01 00:33:00 [facility] [place] Diastolic (mm Hg) 2011-12-01 00:33:00 Mem orial Vin Temperature Oral (F) 2011-12-01 00:33:00 99.6 F [facility] [place] Diastolic (mm Hg) 2011-11-30 21:00:00 Mem orial [place] Heart Rate 2011-11-30 21:00:00 [facility] [place] Respitory Rate 2011-11-30 21:00:00 Memori al Vin Systolic (mm Hg) 2011-11-30 21:00:00 Mendoza rial Vin Temperature Oral (F) 2011-11-30 21:00:00 99.8 F [facility] Vin Respitory Rate 2011-11-30 16:30:00 Memori al [place] Systolic (mm Hg) 2011-11-30 16:30:00 Mendoza rial [place] Diastolic (mm Hg) 2011-11-30 16:30:00 Mem orial Vin Heart Rate 2011-11-30 16:30:00 [facility] Vin Temperature Oral (F) 2011-11-30 16:30:00 99.8 F [facility] Vin Weight 2011-11-29 11:40:00 [facility] Height 2011-11-29 11:40:00 157.48 cm [facility] [place] Weight 2011-11-28 17:16:00 [facility] [place] Weight 2011-09-18 13:30:00 [facility] [place] Height 2011-09-18 13:30:00 154.94 cm [facility] [place] Heart Rate 2011-09-09 13:31:00 [facility] [place] Systolic (mm Hg) 2011-09-09 13:02:00 Mendoza rial [place] Diastolic (mm Hg) 2011-09-09 13:02:00 Mem orial Vin Respitory Rate 2011-09-09 13:02:00 Memori al [place] Temperature Oral (F) 2011-09-09 13:02:00 97.5 F [facility] [place] Diastolic (mm Hg) 2011-09-09 08:00:00 Mem orial [place] Heart Rate 2011-09-09 08:00:00 [facility] [place] Temperature Oral (F) 2011-09-09 08:00:00 98.6 F Memorial Vni Respitory Rate 2011-09-09 08:00:00 Memori al Vin Systolic (mm Hg) 2011-09-09 08:00:00 Mendoza rial [place] Respitory Rate 2011-09-09 04:55:00 Memori al [place] Diastolic (mm Hg) 2011-09-09 04:55:00 Mem orial [place] Systolic (mm Hg) 2011-09-09 04:55:00 Mendoza rial [place] Heart Rate 2011-09-09 04:55:00 [facility] Vin Temperature Oral (F) 2011-09-09 00:55:00 98.7 F [facility] [place] Weight 2011-09-01 19:59:00 [facility] [place] Height 2011-09-01 19:59:00 154.94 cm [facility] [place] Height 2011-09-01 07:01:00 154.94 cm [facility] [place] Weight 2011-09-01 07:01:00 [facility] Vin Respitory Rate 2011-08-23 18:00:00 Memori al [place] Heart Rate 2011-08-23 18:00:00 [facility] Vin Systolic (mm Hg) 2011-08-23 18:00:00 Mendoza rial [place] Diastolic (mm Hg) 2011-08-23 18:00:00 Mem orial [place] Temperature Oral (F) 2011-08-23 18:00:00 97.7 F [facility] [place] Heart Rate 2011-08-23 14:24:00 [facility] [place] Temperature Oral (F) 2011-08-23 14:24:00 98.2 F [facility] [place] Diastolic (mm Hg) 2011-08-23 14:24:00 Mem orial Vin Systolic (mm Hg) 2011-08-23 14:24:00 Mendoza rial [place] Respitory Rate 2011-08-23 14:24:00 Brandon al Vin Systolic (mm Hg) 2011-08-23 11:15:00 Mendoza mariah [place] Diastolic (mm Hg) 2011-08-23 11:15:00 Mem orial [place] Temperature Oral (F) 2011-08-23 11:00:00 98.3 F [facility] [place] Heart Rate 2011-08-23 11:00:00 [facility] Vin Respitory Rate 2011-08-22 22:00:00 Memori al [place] Height 2011-08-20 09:12:00 154.94 cm [facility] Vin Weight 2011-08-20 09:12:00 [facility] [place] Height 2011-08-19 20:28:00 154.94 cm [facility] [place] Weight 2011-08-19 20:28:00 [facility] Vin Procedures Procedure Date / Time Performing Clinician Source Performed POC GLUCOSE 2021-06-18 17:00:00 Aurelio Schumacher spital HEPATITIS B SURFACE 2021-06-18 14:07[facility]00 [facility]TIGEN VANCOMYCIN LEVEL, RANDOM 2021-06-18 13:44[facility]00 [facility] 2021-06-18 13:44:00 [facility] W/AUTO DIFF BASIC METABOLIC PANEL 2021-06-18 11:27:00 [facility] ESTIMATED GFR 2021-06-18 11:27:00 Aurelio Schumacher spital POC GLUCOSE 2021-06-18 08:07:00 Aurelio Schumacher Ho spital HEMODIALYSIS 2021-06-18 06:16:53 Bill Cooper Ho spital POC GLUCOSE 2021-06-18 01:26:00 Aurelio Schumacher spital POC GLUCOSE 2021-06-17 21:58:00 Aurelio Schumacher spital HEMODIALYSIS 2021-06-17 18:25:45 Bill Cooper Ho spital POC GLUCOSE 2021-06-17 17:36:00 Aurelio Schumacher Ho spital POC GLUCOSE 2021-06-17 13:51:00 Aurelio Schumacher BASIC METABOLIC PANEL 2021-06-17 11:16:00 [facility] HC COMPLETE BLD COUNT 2021-06-17 11:16:00 [facility] W/AUTO DIFF ESTIMATED GFR 2021-06-17 11:16:00 [facility] POC GLUCOSE 2021-06-17 02:50:00 [facility] CONSULT TO OSTOMY CARE 2021-06-17 00:31:48 [facility] NURSE HC COMPLETE BLD COUNT 2021-06-16 23:31:00 [facility] W/AUTO DIFF BASIC METABOLIC PANEL 2021-06-16 23:31:00 [facility] ESTIMATED GFR 2021-06-16 23:31:00 [facility] POC GLUCOSE 2021-06-16 23:19:00 [facility] OR [place] < 1 HOUR 2021-06-16 22:49:00 Mando Diaz [facility] ANAEROBIC CULTURE 2021-06-16 22:36:00 Kaci Diazlie [facility] FUNGUS CULTURE 2021-06-16 22:36:00 Mando Diaz [facility] AEROBIC CULTURE 2021-06-16 22:36:00 Mando Diaz [facility] GRAM STAIN 2021-06-16 22:36:00 Mando Diaz [facility] [place] AN ELECTIVE 2021-06-16 21:30:00 Jocelyne Zepeda [facility] SUPRAGLOTTIC AIRWAY AORTOGRAPHY, POSSIBLE 2021-06-16 21:17:00 Mando Diaz [facility] POC , URINE 2021-06-16 20:46:00 [facility] POTASSIUM LEVEL 2021-06-16 17:28:00 Isabell Dickerson marilyn Romero POC GLUCOSE 2021-06-16 11:39:00 [facility] BASIC METABOLIC PANEL 2021-06-16 10:08:00 [facility] HC COMPLETE BLD COUNT 2021-06-16 10:08:00 [facility] W/AUTO DIFF PROTHROMBIN TIME WITH INR 2021-06-16 10:08:00 [facility] PART[facility] THROMBOPLASTIN 2021-06-16 10:08:00 [facility] TIME (PTT) TYPE AND SCREEN 2021-06-16 10:08:00 [facility] ospital ESTIMATED GFR 2021-06-16 10:08:00 [facility] POC GLUCOSE 2021-06-16 01:59:00 [facility] POC GLUCOSE 2021-06-15 22:58:00 [facility] COVID-19 QUALITATIVE 2021-06-15 19:29[facility]SE 2021-06-15 17:42:00 [facility] HEMODIALYSIS 2021-06-15 16:17:54 Delfino Akbar [facility] POC GLUCOSE 2021-06-15 15:41:00 [facility] POC GLUCOSE 2021-06-15 13:44:00 [facility] POC GLUCOSE 2021-06-15 13:00:00 [facility] ECG 12-LEAD 2021-06-15 12:48:21 Leni Barker Ho spital HC COMPLETE BLD COUNT 2021-06-15 11:42:00 [facility] W/AUTO DIFF BASIC METABOLIC PANEL 2021-06-15 11:42:00 [facility] ESTIMATED GFR 2021-06-15 11:42:00 [facility] POC GLUCOSE 2021-06-15 01:31:00 [facility] US DUPLEX ARTERIAL LOWER 2021-06-14 21:55:33 [facility] EXTREMITY RIGHT POC GLUCOSE 2021-06-14 21:51:00 [facility] POC GLUCOSE 2021-06-14 17:36:00 [facility] POC GLUCOSE 2021-06-14 13:30:00 [facility] POC GLUCOSE 2021-06-14 13:29:00 [facility] HC COMPLETE BLD COUNT 2021-06-14 10:13:00 [facility] W/AUTO DIFF BASIC METABOLIC PANEL 2021-06-14 10:13:00 [facility] ESTIMATED GFR 2021-06-14 10:13:00 [facility] POC GLUCOSE 2021-06-14 02:45:00 [facility] POC GLUCOSE 2021-06-13 21:47:00 [facility] POC GLUCOSE 2021-06-13 20:46:00 [facility] CBC WITH PLATELET AND 2021-06-13 16:10:00 [facility] DIFFERENTIAL COMPREHENSIVE METABOLIC 2021-06-13 16:10:00 [facility] PANEL ESTIMATED GFR 2021-06-13 16:10:00 [facility] HEMODIALYSIS 2021-06-13 15:26:35 [facility] POC GLUCOSE 2021-06-13 14:30:00 [facility] VANCOMYCIN LEVEL, RANDOM 2021-06-13 10:59:00 Juwan You [facility] POC GLUCOSE 2021-06-13 10:40:00 [facility] POC GLUCOSE 2021-06-13 02:28:00 [facility] POC GLUCOSE 2021-06-13 00:16:00 [facility] POC GLUCOSE 2021-06-12 23:31:00 [facility] POC GLUCOSE 2021-06-12 23:14:00 [facility] POC GLUCOSE 2021-06-12 18:19:00 [facility] POC GLUCOSE 2021-06-12 14:37:00 [facility] POC GLUCOSE 2021-06-12 14:01:00 [facility] POC GLUCOSE 2021-06-12 03:03:00 Nagel, Holden Ferrara spital [facility] CT HEAD WO CONTRAST 2021-06-12 00:53:00 Rboe, Holden [facility] Ram[facility]rez POC GLUCOSE 2021-06-11 18:08:00 Nagel, Holden Whyte Ho spital [place] POC GLUCOSE 2021-06-11 13:39:00 Nagel, Holden Whyte Ho spital [place] HEMODIALYSIS 2021-06-11 12:38:38 Delfino Akbar [facility] POC GLUCOSE 2021-06-11 02:01:00 Nagel, Holden Whyte Ho spital [place] POC GLUCOSE 2021-06-10 22:15:00 Nagel, Holden Whyte Ho spital [place] POC GLUCOSE 2021-06-10 17:39:00 Nagel, Holden Whyte Ho spital [place] POC GLUCOSE 2021-06-10 16:05:00 Nagel, Holden Ferrara spital [place] TISSUE CULTURE 2021-06-10 15:08:00 Juwan You spital GRAM STAIN 2021-06-10 15:08:00 Juwan You spital ANAEROBIC CULTURE 2021-06-10 15:04:00 Juwan You [facility] FUNGUS CULTURE 2021-06-10 15:04:00 Juwan You spital AEROBIC CULTURE 2021-06-10 15:04:00 Juwan You spital AFB CULTURE 2021-06-10 15:04:00 Juwan You spital GRAM STAIN 2021-06-10 15:04:00 Juwan You spital AFB STAIN 2021-06-10 15:04:00 Juwan You spital [place] AN ELECTIVE 2021-06-10 14:26:00 Sofi Roach spital SUPRAGLOTTIC AIRWAY Marquita INCISION AND DRAINAGE, 2021-06-10 14:26:00 Pati [facility] LOWER EXTREMITY HC COMPLETE BLD COUNT 2021-06-10 10:20:00 , [facility] W/AUTO DIFF BASIC METABOLIC PANEL 2021-06-10 10:20:00 , [facility] PROTHROMBIN TIME WITH INR 2021-06-10 10:20:00 [facility] PARTIAL THROMBOPLASTIN 2021-06-10 10:20:00 [facility] TIME (PTT) TYPE AND SCREEN 2021-06-10 10:20:00 Holden Nagel spital [place] ESTIMATED GFR 2021-06-10 10:20:00 Juwan You spital POC GLUCOSE 2021-06-10 03:11:00 Holden Nagel spital [place] POC GLUCOSE 2021-06-10 01:30:00 Holden Nagel spital [place] POC GLUCOSE 2021-06-09 22:22:00 Holden Nagel spital [place] POC GLUCOSE 2021-06-09 13:55:00 Holden Nagel spital [place] HEMODIALYSIS 2021-06-09 13:20:01 Delfino Abkar [facility] VANCOMYCIN LEVEL, RANDOM 2021-06-09 11:46:00 [facility] POC GLUCOSE 2021-06-09 02:06:00 Holden Nagel spital Ramírez POC GLUCOSE 2021-06-08 22:23:00 Holden Nagel spital Ramírez POC GLUCOSE 2021-06-08 17:53:00 Holden Nagel spital Ramírez HC COMPLETE BLD COUNT 2021-06-08 16:06:00 [facility] W/AUTO DIFF POC GLUCOSE 2021-06-08 13:56:00 Holden Nagel spigabe Ramírez URINE CULTURE 2021-06-08 03:56:00 Holden Nagel spital Ramírez URINALYSIS SCREEN AND 2021-06-08 03:32:00 [facility] MICROSCOPY, WITH REFLEX TO CULTURE POC GLUCOSE 2021-06-08 01:15:00 Holden Nagel spital Ramírez POC GLUCOSE 2021-06-07 22:07:00 Holden Nagel spital Ramírez POC GLUCOSE 2021-06-07 18:01:00 Holden Nagel spital Ramírez BASIC METABOLIC PANEL 2021-06-07 14:15:00 [facility] ESTIMATED GFR 2021-06-07 14:15:00 Holden Nagel spital Ramírez POC GLUCOSE 2021-06-07 13:56:00 Holden Nagel spital Ramírez POC GLUCOSE 2021-06-07 02:54:00 Holden Nagel spital Ramírez CT LOWER EXTREMITY W 2021-06-07 01:22:59 [facility] CONTRAST RIGHT POC GLUCOSE 2021-06-06 23:50:00 Holden Nagel spital Ramírez POC GLUCOSE 2021-06-06 17:31:00 Holden Nagel spital Ramírez HEMODIALYSIS 2021-06-06 15:05:52 Delfino Akbar [facility] POC GLUCOSE 2021-06-06 14:03:00 Holden Nagel spital Ramírez HC COMPLETE BLD COUNT 2021-06-06 10:31:00 [facility] W/AUTO DIFF BASIC METABOLIC PANEL 2021-06-06 10:31:00 [facility] ESTIMATED GFR 2021-06-06 10:31:00 Holden Nagel spital Ramírez POC GLUCOSE 2021-06-06 10:14:00 Holden Nagel spital Ramírez POC GLUCOSE 2021-06-06 06:26:00 Holden Nagel spital Ramírez POC GLUCOSE 2021-06-06 02:41:00 Holden Nagel spital Ramírez POC GLUCOSE 2021-06-05 19:51:00 Holden Nagel spital Ramírez BASIC METABOLIC PANEL 2021-06-05 18:06:00 [facility] HC COMPLETE BLD COUNT 2021-06-05 18:06:00 [facility] W/AUTO DIFF ESTIMATED GFR 2021-06-05 18:06:00 Holden Nagel spital Ramírez POC GLUCOSE 2021-06-05 17:48:00 Holden Nagel spital Ramírez ANAEROBIC CULTURE 2021-06-05 17:10:00 Pati, [facility] ANAEROBIC CULTURE 2021-06-05 16:59:00 Pati, [facility] FUNGUS CULTURE 2021-06-05 16:59:00 Pati [facility] AEROBIC CULTURE 2021-06-05 16:59:00 Pati, [place] [facility] AFB CULTURE 2021-06-05 16:59:00 Pati, Juwan [facility] FUNGUS SMEAR 2021-06-05 16:59:00 Pati, Juwancaron Whyte spital [employer] STAIN 2021-06-05 16:59:00 Pati, [facility] spital [place] AN ELECTIVE 2021-06-05 16:52:08 Herrera [facility] SUPRAGLOTTIC AIRWAY TISSUE CULTURE 2021-06-05 16:50:00 Pati [facility] GRAM STAIN 2021-06-05 16:50:00 Pati Juwan [facility] DEBRIDEMENT, LOWER 2021-06-05 16:16:[address] [facility] EXTREMITY POC GLUCOSE 2021-06-05 13:32:00 Holden Nagel spital Ramírez TROPONIN T 2021-06-05 10:58:00 WanderFormerly [facility] ospital ABO AND RH CONFIRMATION BY 2021-06-05 10:54:[address] [facility] PROTOCOL Vipin BASIC METABOLIC PANEL 2021-06-05 10:53:00 [facility] HC COMPLETE BLD COUNT 2021-06-05 10:53:00 [facility] W/AUTO DIFF ESTIMATED GFR 2021-06-05 10:53:00 [facility] PROTHROMBIN TIME WITH INR 2021-06-05 10:52:00 [facility] PARTIAL THROMBOPLASTIN 2021-06-05 10:52:00 [facility] TIME (PTT) HCG QUALITATIVE, SERUM 2021-06-05 10:52:00 Myron Fernandes [facility] SCREEN POC GLUCOSE 2021-06-05 09:40:00 Rachel Brasher Ho spital Vipin BLOOD CULTURE, AEROBIC & 2021-06-05 08:27:00 Rachel Brasher [facility] ANAEROBIC Vipin POC GLUCOSE 2021-06-05 07:42:00 Rachel Brasher Ho spital Vipin POC GLUCOSE 2021-06-05 06:57:00 Rachel Brasher Ho spital Vipin POC GLUCOSE 2021-06-05 06:10:00 Holden Nagel Ho spigabe Ramírez BLOOD CULTURE, AEROBIC & 2021-06-05 04:31:00 Rachel Brasher [facility] ANAEROBIC Vipin POC GLUCOSE 2021-06-05 04:04:00 Rachel Brasher Ho spital Vipin POC GLUCOSE 2021-06-05 03:51:00 Rachel Brasher spigabe Vipin TYPE AND SCREEN 2021-06-05 03:40:00 Rachel Brasher Ho spital Vipin POC GLUCOSE 2021-06-05 03:05:00 Rachel Brasher Ho spital Vipin POC GLUCOSE 2021-06-05 02:23:00 Rachel Brasher spigabe Vipin COVID-19 QUALITATIVE 2021-06-05 02:08:00 [facility] HC COMPLETE BLD COUNT 2021-06-05 01:24:00 Sivan Stewart [facility] W/AUTO DIFF PROTHROMBIN TIME WITH INR 2021-06-05 01:24:00 [facility] PARTIAL THROMBOPLASTIN 2021-06-05 01:24:00 [facility] TIME (PTT) COMPREHENSIVE METABOLIC 2021-06-05 01:24:00 [facility] PANEL CREATINE KINASE, TOTAL 2021-06-05 01:24:00 [facility] ([facility] B NATRIURETIC PEPTIDE 2021-06-05 01:24:00 SamantaSivan [facility] TROPONIN T 2021-06-05 01:24:00 [facility] ESTIMATED GFR 2021-06-05 01:24:00 [facility] ECG ED PRELIMINARY 2021-06-05 00:31:28 [facility] 12-LEAD 2021-06-05 00:19:17 Rachel Brasherenan POC GLUCOSE 2021-05-25 18:04:00 Awe, [facility] POC GLUCOSE 2021-05-25 14:00:00 Awe, [facility] CBC HEMOGRAM 2021-05-25 10:12:00 Awe, [facility] BASIC METABOLIC PANEL 2021-05-25 10:12:00 Awe, [facility] ESTIMATED GFR 2021-05-25 10:12:00 Awe, [facility] POC GLUCOSE 2021-05-25 02:49:00 Awe, [facility] POC GLUCOSE 2021-05-24 23:33:00 Awe, [facility] POC GLUCOSE 2021-05-24 17:56:00 Awe, [facility] POC GLUCOSE 2021-05-24 13:59:00 [facility], [facility]EM[facility] 2021-05-24 10:12:00 [facility]we, [facility] BASIC METABOLIC PANEL 2021-05-24 10:12:00 Awe, [facility] ESTIMATED GFR 2021-05-24 10:12:00 Awe, [facility] POC GLUCOSE 2021-05-24 09:59:00 Awe, [facility] POC GLUCOSE 2021-05-24 02:26:00 Awe, [facility] POC GLUCOSE 2021-05-24 00:03:00 Awe, [facility] TRANSFUSE RED BLOOD CELLS 2021-05-23 22:30:00 [facility] TRANSFUSE RED BLOOD CELLS 2021-05-23 21:30:00 [facility] POC GLUCOSE 2021-05-23 19:03:00 Awe, [facility] TYPE AND SCREEN 2021-05-23 14:38:00 [facility] HC COMPLETE BLD COUNT 2021-05-23 14:38:00 [facility] W/AUTO DIFF PREPARE RBC 2021-05-23 14:38:00 [facility] ospital PREPARE PLATELET PHERESIS 2021-05-23 14:38:00 [facility] POC GLUCOSE 2021-05-23 14:35:00 Awe, [facility] HEMODIALYSIS 2021-05-23 13:42:30 [facility] CBC HEMOGRAM 2021-05-23 12:31:00 Awe, [facility] BASIC METABOLIC PANEL 2021-05-23 12:31:00 Awe, [facility] ESTIMATED GFR 2021-05-23 12:31:00 [facility], [facility] 2021-05-23 11:22:00 [facility] POC [facility]UCOSE 2021-05-23 03:30:00 [facility] POC GLUCOSE 2021-05-22 23:20:00 [facility], [facility] POC [facility]UCOSE 2021-05-22 17:20:00 [facility], [facility] POC [facility]UCOSE 2021-05-22 13:27:00 [facility], [facility] BASIC METABOLIC PANEL 2021-05-22 12:31:00 Nikki Haynes [facility] Rahel MAGNESIUM LEVEL 2021-05-22 12:31:00 Nikki Haynes osgio Mcginnis CBC HEMOGRAM 2021-05-22 12:31:00 Nikki Haynes ospigabe Rahel ESTIMATED GFR 2021-05-22 12:31:00 Nikki Haynes ospigabe Rahel POC GLUCOSE 2021-05-22 10:54:00 Awe, [facility] POC GLUCOSE 2021-05-22 07:28:00 Awe, [facility] POC GLUCOSE 2021-05-22 01:11:00 Awe, [facility] HEPATITIS B SURFACE 2021-05-21 21:08:00 [facility] ANTIBODY HEMODIALYSIS 2021-05-21 20:57:40 [facility] POC GLUCOSE 2021-05-21 17:57:00 Awe, [facility] POC GLUCOSE 2021-05-21 13:55:00 Awe, [facility] POC GLUCOSE 2021-05-21 10:41:00 Tom Barber marilyn ZZCOVID-19 ANTI-SPIKE IGG 2021-05-21 07:43:00 Clyde Olmstead [facility] ANTIBODY TITER Esa BASIC METABOLIC PANEL 2021-05-21 07:43:00 [facility] Rahel MAGNESIUM LEVEL 2021-05-21 07:43:00 Haynes Nikki [facility] Rahel CBC HEMOGRAM 2021-05-21 07:43:00 [facility] Rahel ZZCOVID-19 SEROLOGY 2021-05-21 07:43:00 Clyde Olmstead [facility] PATIENT SURVEILLANCE Esa ESTIMATED GFR 2021-05-21 07:43:00 [facility] [place] LACTIC ACID LEVEL 2021-05-21 07:43:00 Leodan Stevenson [facility] POC GLUCOSE 2021-05-21 06:35:00 Tom Barber spital HC COMPLETE BLD COUNT 2021-05-21 02:49:00 [facility] W/AUTO DIFF BASIC METABOLIC PANEL 2021-05-21 02:49:00 [facility] LACTIC ACID LEVEL 2021-05-21 02:49:00 [facility] OSMOLALITY, SERUM 2021-05-21 02:49:00 [facility] BETA HYDROXYBUTYRATE 2021-05-21 02:49:00 [facility] PROCALCITONIN 2021-05-21 02:49:00 [facility] ESTIMATED GFR 2021-05-21 02:49:00 [facility] POC GLUCOSE 2021-05-21 02:34:00 Tom Barbertal HC COMPLETE BLD COUNT 2021-05-21 00:28:00 Char Viramontes [facility] W/AUTO DIFF POC GLUCOSE 2021-05-20 23:57:00 Tom Barber spital BASIC METABOLIC PANEL 2021-05-20 23:20:00 Andre Sofia [facility] [place] LACTIC ACID LEVEL 2021-05-20 23:20:00 Andre Sofia [facility] [place] ESTIMATED GFR 2021-05-20 23:20:00 Andre Sofia spital [place] VENOUS BLOOD GAS 2021-05-20 23:19:00 Andre Sofia ospital [place] POC GLUCOSE 2021-05-20 23:16:00 Tom Barber Ho spital POC GLUCOSE 2021-05-20 22:16:00 Tom Barber Ho spital POC GLUCOSE 2021-05-20 21:37:00 Tom Barber Ho spital POC GLUCOSE 2021-05-20 20:29:00 Tom Barber spital POC GLUCOSE 2021-05-20 20:26:00 Tom Barber spital POC GLUCOSE 2021-05-20 17:49:00 Tom Barber spital POC GLUCOSE 2021-05-20 17:46:00 Tom Barber spital TRANSFUSE RED BLOOD CELLS 2021-05-20 17:21:00 [facility] [place] TRANSFUSE PLATELET 2021-05-20 15:52:00 Char Viramontes [facility] PHERESIS BASIC METABOLIC PANEL 2021-05-20 15:25:00 Andre Sofia [facility] [place] ESTIMATED GFR 2021-05-20 15:25:00 Andre Sofia spital [place] POC GLUCOSE 2021-05-20 14:48:00 Tom Barber Ho spital HEMODIALYSIS 2021-05-20 11:31:20 [facility] POC [facility] 2021-05-20 10:44:00 Tom Barber spital HEPATITIS B SURFACE 2021-05-20 08:49:00 [facility] ANTIGEN HEPATITIS B SURFACE AB, 2021-05-20 08:49:00 [facility] QUANTITATIVE HC COMPLETE BLD COUNT 2021-05-20 08:25:00 [facility] W/AUTO DIFF BASIC METABOLIC PANEL 2021-05-20 08:25:00 [facility] MAGNESIUM LEVEL 2021-05-20 08:25:00 [facility] ospital PHOSPHORUS LEVEL 2021-05-20 08:25:00 [facility] PROTHROMBIN TIME WITH INR 2021-05-20 08:25:00 [facility] ESTIMATED GFR 2021-05-20 08:25:00 Juwan You spital HEMOGLOBIN A1C 2021-05-20 08:25:00 Nikki Haynes ospital Rahel POC GLUCOSE 2021-05-20 06:34:00 Tom Barber spital ARTERIAL BLOOD GAS 2021-05-20 04:36:00 [facility] 12-LEAD 2021-05-20 03:42:28 Graham [facility] spital PROTHROMBIN TIME WITH INR 2021-05-20 02:54:00 [facility] HC COMPLETE BLD COUNT 2021-05-20 02:54:00 [facility] W/AUTO DIFF BASIC METABOLIC PANEL 2021-05-20 02:54:00 [facility] LACTIC ACID LEVEL 2021-05-20 02:54:00 [facility] VENOUS BLOOD GAS 2021-05-20 02:54:00 Graham [facility] ospital ESTIMATED GFR 2021-05-20 02:54:[address] [facility] spital POC GLUCOSE 2021-05-20 02:54:00 Tom Barber spital XR CHEST 1 VW PORTABLE 2021-05-20 02:51:13 [facility] [place] [facility] HOUR 2021-05-20 01:30:15 Juwan You spital TRANSFUSE RED BLOOD CELLS 2021-05-20 00:59:00 Juwan You [facility] [place] AN ELECTIVE 2021-05-20 00:53:01 Sukhjinder Medina spital SUPRAGLOTTIC AIRWAY [place] INCISION AND DRAINAGE, 2021-05-20 00:45:00 Juwan You [facility] HEMATOMA HC COMPLETE BLD COUNT 2021-05-19 22:13:00 [facility] W/AUTO DIFF BASIC METABOLIC PANEL 2021-05-19 22:13:00 [facility] PROTHROMBIN TIME WITH INR 2021-05-19 22:13:00 [facility] luisa [facility] PARTIAL THROMBOPLASTIN 2021-05-19 22:13:00 [facility] TIME (PTT) MAGNESIUM LEVEL 2021-05-19 22:13:00 [facility] ESTIMATED GFR 2021-05-19 22:13:00 Juwan You spital POC GLUCOSE 2021-05-19 22:00:00 Errol Luther [facility] SURGICAL PATHOLOGY REQUEST 2021-05-19 21:47:00 Errol Luther [facility] POC GLUCOSE 2021-05-19 21:17:00 Juwan You spital ACTIVATED CLOTTING TIME 2021-05-19 19:12:00 [facility] [place] AN ELECTIVE 2021-05-19 18:11:04 Sukhjinder Medina spital SUPRAGLOTTIC AIRWAY [place] LOWER EXTREMITY 2021-05-19 17:59:00 Juwan You spital ANGIOGRAM,POSSIBLE ANGIOPLASTY,POSSIBLE STENT XR CHEST 1 VW PORTABLE 2021-05-19 15:47:37 Pati Juwan [facility] ESTIMATED GFR 2021-05-19 14:34:00 Juwan You spital POC PANEL 2021-05-19 14:34:00 Juwan You spital TYPE AND SCREEN 2021-05-19 14:05:00 Isabell Dickerson PREPARE RBC 2021-05-19 14:05:00 Char Viramontes ospital PREPARE FRESH FROZEN 2021-05-19 14:05:00 Char Viramontes [facility] PLASMA PREPARE PLATELET PHERESIS 2021-05-19 14:05:00 Char Viramontes [facility] BASIC METABOLIC PANEL 2021-05-19 14:00:00 Jayla [facility] Larry Romero PROTHROMBIN TIME WITH INR 2021-05-19 14:00:00 Me Jayla [facility] Larry Romero HC COMPLETE BLD COUNT 2021-05-19 14:00:00 Jayla [facility] W/AUTO DIFF Larry Romero ABO AND RH CONFIRMATION BY 2021-05-19 14:00:[address] [facility] PROTOCOL ESTIMATED GFR 2021-05-19 14:00:00 Isabell Dickerson spigabe Romero COVID-19 QUALITATIVE 2021-05-19 12:40:00 Juwan You [facility] RT-PCR MEDICAL RELEASE/CLEARANCE 2021-05-13 06:01:00 Doctor Unassigned, [facility] FORMS [facility] US DUPLEX ARTERIAL LOWER 2021-05-12 15:21:31 Juwan You [facility] EXTREMITY BILATERAL Emergency department visit 2013-04-15 [...] procedure) Therapeutic, prophylactic, 2013-04-15 05:00:00 [facility] or diagnostic injection (specify substance or drug); each additional sequential intravenous push of a new substance/drug (List separately in addition to code for primary procedure) Therapeutic, prophylactic, 2013-04-15 05:00:00 [facility] or diagnostic injection (specify substance or drug); intravenous push, single or initial substance/drug Eye procedure Shahid Banuelos Colonoscopy Shahid Banuelos EGD Shahid Banuelos (esophagogastroduodenoscop y) gastric outlet reduction section Shahid Joseph n Tubal ligation [facility] 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 Plan of Care Planned Activity Planned Date Details Comments Source Future Scheduled 2022-06-01 HEPATITIS B VACCINES Met [facility] Test 16:17:59 (1 of 3 - 3-dose series) [code = HEPATITIS B VACCINES (1 of 3 - 3-dose series)] Future Scheduled 2022-06-01 COVID-19 VACCINE (#1) [facility] Test 16:17:59 [code = COVID-19 VACCINE (#1)] Future Scheduled 2022-06-01 Pneumococcal Vaccine: [facility] Test 16:17:59 Pediatrics (0 to 5 Years) and At-Risk Patients (6 to 64 Years) (1 - PCV) [code = Pneumococcal Vaccine: Pediatrics (0 to 5 Years) and At-Risk Patients (6 to 64 Years) (1 - PCV)] Future Scheduled 2022-06-01 Hepatitis C screening [facility] Test 16:17:59 (procedure) [code = 068526292] Future Scheduled 2022-06-01 Screening for [facility] Test 16:17:59 malignant neoplasm of cervix (procedure) [code = 041181987] Future Scheduled 2022-06-01 INFLUENZA VACCINE Method [facility] Test 16:17:59 [code = INFLUENZA VACCINE] Future Scheduled 2022-04-25 HEPATITIS B VACCINES Met [facility] Test 12:43:16 (1 of 3 - 3-dose series) [code = HEPATITIS B VACCINES (1 of 3 - 3-dose series)] Future Scheduled 2022-04-25 COVID-19 VACCINE (#1) [facility] Test 12:43:16 [code = COVID-19 VACCINE (#1)] Future Scheduled 2022-04-25 Pneumococcal Vaccine: [facility] Test 12:43:16 Pediatrics (0 to 5 Years) and At-Risk Patients (6 to 64 Years) (1 - PCV) [code = Pneumococcal Vaccine: Pediatrics (0 to 5 Years) and At-Risk Patients (6 to 64 Years) (1 - PCV)] Future Scheduled 2022-04-25 Hepatitis C screening [facility] Test 12:43:16 (procedure) [code = 180448583] Future Scheduled 2022-04-25 Screening for [facility] Test 12:43:16 malignant neoplasm of cervix (procedure) [code = 101878814] Future Scheduled 2022-04-25 INFLUENZA VACCINE [facility] Test 12:43:16 [code = INFLUENZA VACCINE] Future Scheduled 2022-02-27 HEPATITIS B VACCINES Met [facility] Test 05:24:42 (1 of 3 - 3-dose series) [code = HEPATITIS B VACCINES (1 of 3 - 3-dose series)] Future Scheduled 2022-02-27 COVID-19 VACCINE (#1) [facility] Test 05:24:42 [code = COVID-19 VACCINE (#1)] Future Scheduled 2022-02-27 Pneumococcal Vaccine: [facility] Test 05:24:42 Pediatrics (0 to 5 Years) and At-Risk Patients (6 to 64 Years) (1 - PCV) [code = Pneumococcal Vaccine: Pediatrics (0 to 5 Years) and At-Risk Patients (6 to 64 Years) (1 - PCV)] Future Scheduled 2022-02-27 Hepatitis C screening [facility] Test 05:24:42 (procedure) [code = [id number]] Future Scheduled 2022-02-27 Screening for [facility] Test 05:24:42 malignant neoplasm of cervix (procedure) [code = 589963934] Future Scheduled 2022-02-27 INFLUENZA VACCINE Method [facility] Test 05:24:42 [code = INFLUENZA VACCINE] Future Scheduled 2022-02-27 HEPATITIS B VACCINES Met [facility] Test 05:24:42 (1 of 3 - 3-dose series) [code = HEPATITIS B VACCINES (1 of 3 - 3-dose series)] Future Scheduled 2022-02-27 COVID-19 VACCINE (#1) [facility] Test 05:24:42 [code = COVID-19 VACCINE (#1)] Future Scheduled 2022-02-27 Pneumococcal Vaccine: [facility] Test 05:24:42 Pediatrics (0 to 5 Years) and At-Risk Patients (6 to 64 Years) (1 - PCV) [code = Pneumococcal Vaccine: Pediatrics (0 to 5 Years) and At-Risk Patients (6 to 64 Years) (1 - PCV)] Future Scheduled 2022-02-27 Hepatitis C screening [facility] Test 05:24:42 (procedure) [code = 593057585] Future Scheduled 2022-02-27 Screening for [facility] Test 05:24:42 malignant neoplasm of cervix (procedure) [code = [id number]] Future Scheduled 2022-02-27 INFLUENZA VACCINE Method [facility] Test 05:24:42 [code = INFLUENZA VACCINE] Future Scheduled 2022-02-27 HEPATITIS B VACCINES Met [facility] Test 05:24:42 (1 of 3 - 3-dose series) [code = HEPATITIS B VACCINES (1 of 3 - 3-dose series)] Future Scheduled 2022-02-27 COVID-19 VACCINE (#1) [facility] Test 05:24:42 [code = COVID-19 VACCINE (#1)] Future Scheduled 2022-02-27 Pneumococcal Vaccine: [facility] Test 05:24:42 Pediatrics (0 to 5 Years) and At-Risk Patients (6 to 64 Years) (1 - PCV) [code = Pneumococcal Vaccine: Pediatrics (0 to 5 Years) and At-Risk Patients (6 to 64 Years) (1 - PCV)] Future Scheduled 2022-02-27 Hepatitis C screening [facility] Test 05:24:42 (procedure) [code = 626466052] Future Scheduled 2022-02-27 [facility] Test 05:24:42 malignant neoplasm of cervix (procedure) [code = 247280910] Future Scheduled 2022-02-27 INFLUENZA VACCINE Method [facility] Test 05:24:42 [code = INFLUENZA VACCINE] Future Scheduled 2022-02-27 HEPATITIS B VACCINES Met [facility] Test 05:24:42 (1 of 3 - 3-dose series) [code = HEPATITIS B VACCINES (1 of 3 - 3-dose series)] Future Scheduled 2022-02-27 COVID-19 VACCINE (#1) [facility] Test 05:24:42 [code = COVID-19 VACCINE (#1)] Future Scheduled 2022-02-27 Pneumococcal Vaccine: [facility] Test 05:24:42 Pediatrics (0 to 5 Years) and At-Risk Patients (6 to 64 Years) (1 - PCV) [code = Pneumococcal Vaccine: Pediatrics (0 to 5 Years) and At-Risk Patients (6 to 64 Years) (1 - PCV)] Future Scheduled 2022-02-27 Hepatitis C screening [facility] Test 05:24:42 (procedure) [code = 973227454] Future Scheduled 2022-02-27 [facility] Test 05:24:42 malignant neoplasm of cervix (procedure) [code = [id number]] Future Scheduled 2022-02-27 INFLUENZA VACCINE [facility] Test 05:24:42 [code = INFLUENZA VACCINE] Future Scheduled 2022-02-27 HEPATITIS B VACCINES Met [facility] Test 05:24:42 (1 of 3 - 3-dose series) [code = HEPATITIS B VACCINES (1 of 3 - 3-dose series)] Future Scheduled 2022-02-27 COVID-19 VACCINE (#1) [facility] Test 05:24:42 [code = COVID-19 VACCINE (#1)] Future Scheduled 2022-02-27 Pneumococcal Vaccine: [facility] Test 05:24:42 Pediatrics (0 to 5 Years) and At-Risk Patients (6 to 64 Years) (1 - PCV) [code = Pneumococcal Vaccine: Pediatrics (0 to 5 Years) and At-Risk Patients (6 to 64 Years) (1 - PCV)] Future Scheduled 2022-02-27 Hepatitis C screening [facility] Test 05:24:42 (procedure) [code = 935953226] Future Scheduled 2022-02-27 Screening for [facility] Test 05:24:42 malignant neoplasm of cervix (procedure) [code = 359349983] Future Scheduled 2022-02-27 INFLUENZA VACCINE [facility] Test 05:24:42 [code = INFLUENZA VACCINE] Future Scheduled 2022-02-27 HEPATITIS B VACCINES Met [facility] Test 05:24:42 (1 of 3 - 3-dose series) [code = HEPATITIS B VACCINES (1 of 3 - 3-dose series)] Future Scheduled 2022-02-27 COVID-19 VACCINE (#1) [facility] Test 05:24:42 [code = COVID-19 VACCINE (#1)] Future Scheduled 2022-02-27 Pneumococcal Vaccine: [facility] Test 05:24:42 Pediatrics (0 to 5 Years) and At-Risk Patients (6 to 64 Years) (1 - PCV) [code = Pneumococcal Vaccine: Pediatrics (0 to 5 Years) and At-Risk Patients (6 to 64 Years) (1 - PCV)] Future Scheduled 2022-02-27 Hepatitis C screening [facility] Test 05:24:42 (procedure) [code = 645206848] Future Scheduled 2022-02-27 [facility] Test 05:24:42 malignant neoplasm of cervix (procedure) [code = 015982343] Future Scheduled 2022-02-27 INFLUENZA VACCINE Method [facility] Test 05:24:42 [code = INFLUENZA VACCINE] Future Scheduled 2022-02-27 HEPATITIS B VACCINES Met [facility] Test 05:24:42 (1 of 3 - 3-dose series) [code = HEPATITIS B VACCINES (1 of 3 - 3-dose series)] Future Scheduled 2022-02-27 COVID-19 VACCINE (#1) [facility] Test 05:24:42 [code = COVID-19 VACCINE (#1)] Future Scheduled 2022-02-27 Pneumococcal Vaccine: [facility] Test 05:24:42 Pediatrics (0 to 5 Years) and At-Risk Patients (6 to 64 Years) (1 - PCV) [code = Pneumococcal Vaccine: Pediatrics (0 to 5 Years) and At-Risk Patients (6 to 64 Years) (1 - PCV)] Future Scheduled 2022-02-27 Hepatitis C screening [facility] Test 05:24:42 (procedure) [code = 723918937] Future Scheduled 2022-02-27 [facility] Test 05:24:42 malignant neoplasm of cervix (procedure) [code = 521778341] Future Scheduled 2022-02-27 INFLUENZA VACCINE Method [facility] Test 05:24:42 [code = INFLUENZA VACCINE] Future Scheduled 2022-02-27 HEPATITIS B VACCINES Met [facility] Test 05:24:42 (1 of 3 - 3-dose series) [code = HEPATITIS B VACCINES (1 of 3 - 3-dose series)] Future Scheduled 2022-02-27 COVID-19 VACCINE (#1) [facility] Test 05:24:42 [code = COVID-19 VACCINE (#1)] Future Scheduled 2022-02-27 Pneumococcal Vaccine: [facility] Test 05:24:42 Pediatrics (0 to 5 Years) and At-Risk Patients (6 to 64 Years) (1 - PCV) [code = Pneumococcal Vaccine: Pediatrics (0 to 5 Years) and At-Risk Patients (6 to 64 Years) (1 - PCV)] Future Scheduled 2022-02-27 Hepatitis C screening [facility] Test 05:24:42 (procedure) [code = 388819881] Future Scheduled 2022-02-27 [facility] Test 05:24:42 malignant neoplasm of cervix (procedure) [code = 130731467] Future Scheduled 2022-02-27 INFLUENZA VACCINE [facility] Test 05:24:42 [code = INFLUENZA VACCINE] Future Scheduled 2021-07-22 COVID-19 VACCINE (1) Met [facility] Test 13:11:04 [code = COVID-19 VACCINE (1)] Future Scheduled 2021-07-22 Hepatitis C screening [facility] Test 13:11:04 (procedure) [code = 729547437] Future Scheduled 2021-07-22 [facility] Test 13:11:04 malignant neoplasm of cervix (procedure) [code = 968670816] Future Scheduled 2021-07-22 INFLUENZA VACCINE [facility] Test 13:11:04 [code = INFLUENZA VACCINE] Encounters Start End Encounter Admission Attending Care Care Encounter Source Date/Time Date/Time Type Type Clinicians Facility Department ID 2022-04-29 Outpatient [facility] [id number] [place] 09:02:27 [id number] [facility] 2022-04-28 Outpatient [facility] [id number] [place] 12:17:07 [id number] [facility] 2021-12-29 Outpatient [facility] [id number] [place] 11:56:31 [id number] [facility] 2021-12-19 Outpatient [facility] [id number] [place] 14:05:12 [id number] [facility] 2021-12-12 Outpatient [facility] [id number] [place] 12:11:07 [id number] [facility] 2021-12-05 Outpatient [facility] [id number] [place] 20:09:51 [id number] [facility] 2021-10-28 Outpatient [facility] [id number] [place] 17:04:22 [id number] [facility] 2021-07-22 Outpatient nullFlavo [facility] [id number] Memoria 00:10:30 r Medical 05 [facility] 2021-07-22 Preadmit nullFlavo [id number] Memoria 00:10:30 r [facility] 68 [facility] 2021-07-22 Outpatient nullFlavo [facility] [id number] Memoria 00:10:30 r Medical 06 l [facility] 2021-04-22 Emergency [facility] [id number] Univers 02:13:03 ity of [facility] 2021-04-18 Emergency [facility] [id number] Univers 22:32:23 ity of [facility] 2021-04-17 Emergency [facility] [id number] Univers 17:46:08 ity [facility] 2022-04-09 2022-04-09 Outpatient Nodal_J [facility] [id number] Devoted 00:00:00 00:00:00 1020 Medica l Group 2022-01-02 2022-01-02 Outpatient Deshazo_T [facility] [id number] -2021 Devoted 03:37:00 03:37:00 0715 Medica l Group 2021-12-15 2021-12-15 Outpatient [facility] [id number] [place] 08:00:00 08:00:00 RAJ SafedoX 2021-12-02 2021-12-02 Travel 1.2.840.1 1.2.476.271 1166 [id number] Methodi 00:00:00 00:00:[address] 3.430.2.7 0.2.7.3.698 Ho spita .3.136798 084.8 l .8 2021-12-02 2021-12-02 Travel 1.2.840.1 1.2.679.510 5991 159580 Methodi 00:00:00 00:00:[address] 3.430.2.7 0.2.7.3.698 Ho spita .3.444865 084.8 l .8 2021-11-13 2021-11-13 Transcribe [place], 1.2.840.1 [id number] 21 [id number] Methodi 00:00:00 00:00:00 Orders Jose Miguel Hearn 17193.1.[address] 3.430.2.7 Hospit a .3.335574 l .8 2021-11-13 2021-11-13 Transcribe [place], 1.2.840.1 [id number] 21 [id number] Methodi 00:00:00 00:00:00 Orders Jose Miguel Hearn 75633.1.[address] 3.430.2.7 Hospit a .3.427011 l .8 2021-11-05 2021-11-05 Outpatient Deshazo_T [facility] [id number] -2021 Devoted 12:00:00 12:00:00 0518 Medica l Group 2021-10-29 2021-10-29 Telephone Rosy, 1.2.840.1 [id number] Methodi 00:00:00 00:00:[address] Mohamed 3.430.2.7 Hospit a .3.597435 l .8 2021-10-29 2021-10-29 Telephone Rosy, 1.2.840.1 [id number] 780 [id number] Methodi 00:00:00 00:00:[address] Mohamed 3.430.2.7 Hospit a .3.817715 l .8 2021-08-20 2021-08-20 Outpatient Deshazo_T [facility] G [id number] -2021 Devoted 12:30:00 12:30:00 0302 Medica l Group 2021-07-08 2021-07-08 Office Seth, 1.2.840.1 [id number] 4165 Methodi 13:00:00 14:25:36 Visit Bessie 56274.1.[address] [place] 3.430.2.7 Hosp jo-ann .3.977707 l .8 2021-07-08 2021-07-08 Office Seth, 1.2.840.1 [id number] 4797 Methodi 13:00:00 14:25:36 Visit Bessie 52458.1.[address] [place] 3.430.2.7 Hosp jo-ann .3.908502 l .8 2021-07-08 2021-07-08 Telephone Anthony, 1.2.840.1 [id number] 2100 884122 Methodi 00:00:00 00:00:[address] 3.430.2.7 Hospit a .3.479333 l .8 2021-07-08 2021-07-08 Travel 1.2.840.1 1.2.917.244 9834 546868 Methodi 00:00:00 00:00:[address] 3.430.2.7 0.2.7.3.698 Ho spita .3.406418 084.8 l .8 2021-07-08 2021-07-08 Telephone Anthony, 1.2.840.1 [id number] 2099 [id number] Methodi 00:00:00 00:00:[address] 3.430.2.7 Hospit a .3.624864 l .8 2021-07-08 2021-07-08 Travel 1.2.840.1 1.2.574.611 3116 601287 Methodi 00:00:00 00:00:[address] 3.430.2.7 0.2.7.3.698 Ho spita .3.446890 084.8 l .8 2021-07-03 2021-07-03 CAV Melany 2.16.840. 2.16.840.1. CLAC [id number] Devoted 19:00:00 20:00:[address] Vladimir [address] 654652.4.[address]. [address] [facility] 4.6.13600 [id number] 2021-07-03 2021-07-03 Telephone Ann, 1.2.840.1 [id number] 2099 [id number] Methodi 00:00:00 00:00:[address] [place] 3.430.2.7 Hosp jo-ann .3.518453 l .8 2021-07-03 2021-07-03 Telephone Ann, 1.2.840.1 [id number] 2099 [id number] Methodi 00:00:00 00:00:[address] [place] 3.430.2.7 Hosp jo-ann .3.101532 l .8 2021-06-24 2021-06-24 Outpatient Deshazo_T [facility] [place] [place] [id number] -2021 [facility] 05:31:00 05:31:00 0104 Medica l Group 2021-06-23 2021-06-23 Telephone Anthony, 1.2.840.1 [id number] 2099 [id number] Methodi 00:00:00 00:00:[address] 3.430.2.7 Hospit a .3.460876 l .8 2021-06-23 2021-06-23 Telephone Anthony, 1.2.840.1 [id number] 2099 573134 Methodi 00:00:00 00:00:[address] 3.430.2.7 Hospit a .3.120143 l .8 2021-06-04 2021-06-18 [facility] [place]. 1.2.840.1 1041 23062 [id number] Methodi 18:20:00 18:13:00 Encounter Rachel Brasher 53158.1.[address] [facility] 3.430.2.7 [facility] Kalen .3.763189 l [facility], ad .8 2021-06-04 2021-06-18 [facility] [place]. 1.2.840.1 1041 02941 [id number] Methodi 18:20:00 18:13:00 Encounter Rachel Brasher 82850.1.[address] [facility] 3.430.2.7 H[facility]ita [facility], Shanda Kalen .3.086969 l [facility], ad .8 2021-06-16 2021-06-16 Anesthesia Yousif, 1.2.840.1 [id number] Methodi 23:59:59 23:59:59 Event Alesia Coehlo 98630.1.[address] 3.430.2.7 Hospit a .3.906380 l .8 2021-06-16 2021-06-16 Surgery Joe, 1.2.840.1 [id number] 257220 4561 Methodi 13:30:00 17:45:00 Mando 36114.1.1 582 [facility]-i 3.430.2.7 Hosp jo-ann .3.324435 l .8 2021-06-16 2021-06-16 Surgery Joe, 1.2.840.1 [id number] 148801 1910 Methodi 13:30:00 17:45:00 Mando 15561.1.1 582 [facility]-i 3.430.2.7 Hosp jo-ann .3.611385 l .8 2021-06-16 2021-06-16 Anesthesia Jose Carlos, 1.2.840.1 [id number] 987 [id number] Methodi 15:19:00 17:19:00 Event Modestothi 73279.1.1 309 s t V. 3.430.2.7 Hospit a .3.799494 l .8 2021-06-16 2021-06-16 Anesthesia Jose Carlos, 1.2.840.1 [id number] 064 6508868 Methodi 15:19:00 17:19:00 Event Modestothi 53274.1.1 309 s t V. 3.430.2.7 Hospit a .3.431775 l .8 2021-06-10 2021-06-10 Surgery PatiTory 1.2.840.1 [id number] Methodi 08:00:00 10:30:[address] 3.430.2.7 Hospit a .3.113370 l .8 2021-06-10 2021-06-10 Surgery PatiJuwan 1.2.840.1 [id number] Methodi 08:00:00 10:30:[address] 3.430.2.7 Hospit a .3.495227 l .8 2021-06-10 2021-06-10 Anesthesia Doc, 1.2.840.1 [id number] 331 [id number] Methodi 08:26:00 09:40:00 Event Sofi 02902.1.[address] Marquita 3.430.2.7 Hosp jo-ann .3.903750 l .8 2021-06-10 2021-06-10 Anesthesia Doc, 1.2.840.1 [id number] 602 [id number] Methodi 08:26:00 09:40:00 Event Sofi 23959.1.[address] Marquita 3.430.2.7 Hosp jo-ann .3.892592 l .8 2021-06-09 2021-06-09 Prep for Robert, 1.2.840.1 [id number] 558 [id number] Methodi 00:00:00 00:00:00 Surgery Gayle 43794.1.[address] 3.430.2.7 Hospit a .3.433281 l .8 2021-06-09 2021-06-09 Prep for Robert, 1.2.840.1 [id number] 434 2076767 Methodi 00:00:00 00:00:00 Surgery Gayle 29623.1.[address] 3.430.2.7 Hospit a .3.796988 l .8 2021-06-09 2021-06-09 Prep for Robert, 1.2.840.1 [id number] 009 [id number] Methodi 00:00:00 00:00:00 Surgery Gayle 32943.1.[address] 3.430.2.7 Hospit a .3.383501 l .8 2021-06-09 2021-06-09 Prep for Robert, 1.2.840.1 [id number] 666 [id number] Methodi 00:00:00 00:00:00 Surgery Gayle 97259.1.[address] 3.430.2.7 Hospit a .3.566831 l .8 2021-06-05 2021-06-05 Anesthesia Frankie Chowdhury 1.2.840.1 [id number] Methodi 10:16:00 11:41:00 Event Chandler Silverman 07459.1.[address] 3.430.2.7 Hospit a .3.683755 l .8 2021-06-05 2021-06-05 Anesthesia EdyFrankie bills Mandysherie 1.2.840.1 [id number] Methodi 10:16:00 11:41:00 Event Chandler Silverman 26387.1.[address] 3.430.2.7 Hospit a .3.997256 l .8 2021-06-05 2021-06-05 Surgery PatiJuwan 1.2.840.1 [id number] 21001 26452 Methodi 09:30:00 11:05:[address] 3.430.2.7 Hospit a .3.822868 l .8 2021-06-05 2021-06-05 Surgery PatiJuwan 1.2.840.1 [id number] 21001 01882 Methodi 09:30:00 11:05:[address] 3.430.2.7 Hospit a .3.386124 l .8 2021-06-03 2021-06-03 Prep for Anthony, 1.2.840.1 [id number] 51129 Methodi 00:00:00 00:00:00 Surgery Forrest 97389.1.[address] 3.430.2.7 Hospit a .3.545724 l .8 2021-06-03 2021-06-03 Telephone Adelita, 1.2.840.1 [id number] 565 6873775 Methodi 00:00:00 00:00:00 Crysandria 65213.1.1 218 s t 3.430.2.7 Hospit a .3.742370 l .8 2021-06-03 2021-06-03 Prep for Anthony, 1.2.840.1 [id number] 88694 Methodi 00:00:00 00:00:00 Surgery Forrest 97941.1.[address] 3.430.2.7 Hospit a .3.250639 l .8 2021-06-03 2021-06-03 Telephone Ureña, 1.2.840.1 [id number] 504 0286509 Methodi 00:00:00 00:00:00 Crysandria 46387.1.1 218 s t 3.430.2.7 Hospit a .3.972849 l .8 2021-05-28 2021-05-28 Outpatient Adams_R [facility] [place] [address]-7 021 [facility] 05:00:00 05:00:00 1208 Medica l Group 2021-05-27 2021-05-27 Patient Tam, 1.2.840.1 [id number] 909 [id number] Methodi 00:00:00 00:00:00 Outreach Maria M 95281.1.[address] 3.430.2.7 Hospit a .3.657971 l .8 2021-05-27 2021-05-27 Travel 1.2.840.1 1.2.633.343 1724 936856 Methodi 00:00:00 00:00:[address] 3.430.2.7 0.2.7.3.698 Ho spita .3.352465 084.8 l .8 2021-05-27 2021-05-27 Orders Boles, 1.2.840.1 [id number] 2100 717238 Methodi 00:00:00 00:00:00 Only Anila 57547.1.[address] 3.430.2.7 Hospit a .3.942701 l .8 2021-05-26 2021-05-26 Outpatient Adams_R DMG G 68985-9 021 Devoted 03:30:00 03:30:00 1206 Medica l Group 2021-05-26 2021-05-26 Telephone Anthony, 1.2.840.1 [id number] 2099 [id number] Methodi 00:00:00 00:00:[address] 3.430.2.7 Hospit a .3.262951 l .8 2021-05-19 2021-05-25 Hospital Juwan You 1.2.840.1 [id number] 2099 595690 Methodi 06:00:00 15:59:00 Tom Peres 81640.1.[address] Marilu Koch 3.430.2.7 Hospita .3.694667 l .8 2021-05-21 2021-05-21 Outpatient [facility] 02133-7 021 Devoted 03:30:00 03:30:00 1201 Medica l Group 2021-05-19 2021-05-19 Anesthesia Adam, 1.2.840.1 [id number] Methodi 18:45:00 20:31:00 Event Sukhjinder 85173.1.[address] Kendall 3.430.2.7 Hospit a .3.552944 l .8 2021-05-19 2021-05-19 Surgery PatiJuwan 1.2.840.1 [id number] 36881 Methodi 18:50:00 19:55:[address] 3.430.2.7 Hospit a .3.007077 l .8 2021-05-19 2021-05-19 Anesthesia Sukhjinder Medina 1.2.840.1 [id number] Methodi 12:00:00 15:14:00 Event Hanane Ledezma 88904.1.[address] 3.430.2.7 Hospit a .3.508698 l .8 2021-05-19 2021-05-19 Surgery Juwan You 1.2.840.1 [id number] 80126 Methodi 12:05:00 14:45:[address] 3.430.2.7 Hospit a .3.443914 l .8 2021-05-19 2021-05-19 Travel 1.2.840.1 1.2.622.538 6560 825553 Methodi 00:00:00 00:00:[address] 3.430.2.7 0.2.7.3.698 Ho spita .3.500298 084.8 l .8 2021-05-14 2021-05-14 Telephone Corin 1.2.840.1 [id number] Methodi 00:00:00 00:00:[address] 3.430.2.7 Hospit a .3.445371 l .8 2021-05-14 2021-05-14 Prep for Anthony, 1.2.840.1 [id number] Methodi 00:00:00 00:00:00 Surgery Forrest 00629.1.[address] 3.430.2.7 Hospit a .3.594305 l .8 2021-05-13 2021-05-13 Orders Doctor JOANNA 1.2.840.114 [id number] Univers 00:00:00 00:00:00 Only Unassigned, BEKA 350.1.13.10 ity of [place] [facility] 4.2.7.2.686 Baljinder as 497.8316423 [address] 2021-05-12 2021-05-12 Office Juwan You 1.2.840.1 [id number] Methodi 09:00:00 09:32:[address] 3.430.2.7 Hospit a .3.390705 l .8 2021-05-12 2021-05-12 Outpatient JUWAN YOU [facility] [id number] [place] 00:00:00 00:00:[address] 2021-05-12 2021-05-12 Telephone Anthony, 1.2.840.1 [id number] 2100 920292 Methodi 00:00:00 00:00:[address] 3.430.2.7 Hospit a .3.921135 l .8 2021-05-12 2021-05-12 Travel 1.2.840.1 1.2.048.665 1913 735698 Methodi 00:00:00 00:00:[address] 3.430.2.7 0.2.7.3.698 Ho spita .3.067722 084.8 l .8 2021-05-08 2021-05-08 Orders Anthony, 1.2.840.1 [id number] 832986 1078 Methodi 00:00:00 00:00:00 Only Forrest 16601.1.[address] 3.430.2.7 Hospit a .3.780260 l .8 2021-05-08 2021-05-08 Telephone Ramana 1.2.840.1 [id number] 21 [id number] Methodi 00:00:00 00:00:[address] 3.430.2.7 Hospit a .3.439744 l .8 2021-05-05 2021-05-05 Office Juwan You 1.2.840.1 [id number] 60 Methodi 14:00:00 15:41:[address] 3.430.2.7 Hospit a .3.588823 l .8 2021-05-05 2021-05-05 Travel 1.2.840.1 1.2.826.805 0015 161388 Methodi 00:00:00 00:00:[address] 3.430.2.7 0.2.7.3.698 Ho spita .3.750915 084.8 l .8 2021-05-01 2021-05-01 Telephone Joe, 1.2.840.1 [id number] 2100 741939 Methodi 00:00:00 00:00:[address] Diaz-H[facility] 3.430.2.7 Hosp jo-ann .3.522895 l .8 2021-04-08 2021-04-08 Outpatient R CASEY, [facility] [id number] 799 Univers 09:00:00 09:00:00 MONA low of [facility] 2021-03-24 2021-03-24 Transition Misha Garcia 1.2.840.114 878 97812 Univers 00:00:00 00:00:00 of Care Missy Guzman 350.1.13.10 it y [phone] [address] [place] 2021-03-192021-03-21 [facility] Jimena Easton 1.2.840.1 1007 869043 [id number] Univers 08:24:00 23:08:00 Encounter DiasEze lombardo 22119.1.1 ity of [place] 3.104.2.7 [place] .3.820028 Medica l .8 [place] 2021-03-21 2021-03-21 Outpatient [facility] 24352-4 021 Devoted 08:01:00 08:01:00 1001 Medica l Group 2021-03-19 2021-03-19 Orders Doctor 1.2.840.5 [id number] 235 Univers 00:00:00 00:00:00 Only Unassigned, 55253.1.1 ity of [place] 3.104.2.7 [place] .3.635381 Medica l .8 [place] 2021-03-19 2021-03-19 Travel 1.2.840.1 1.2.521.382 3960 4264 Univers 00:00:00 00:00:00 06914.1.1 350.1.13.10 ity of 3.104.2.7 4[place]7.3.698 [place] .3.501293 084.8 Medica l .8 [place] 2021-01-21 2021-01-29 Inpatient [facility] 67303 [id number] [facility] 15:50:00 20:14:[address] 2021-01-21 2021-01-29 Outpatient Aydee [facility] [id number] 10:50:00 15:14:00 Monisha 2021-01-21 2021-01-29 [facility] 7512 [facility] 10:50:00 15:14:00 MONISHA 2021-01-24 2021-01-24 Outpatient [facility] 85722-8 021 [facility] 08:00:00 08:00:00 0806 Medica l Group 2021-01-21 2021-01-21 Outpatient Aydee [facility] 79977 62209 10:50:00 10:50:00 Monisha 12 2021-01-03 2021-01-03 Office DOMINIQUE Diane 1.2.840.114 [id number] [place] 07:44:43 09:30:54 Visit Alexandr ALTMAN 350.1.13.58 [facility] MED[facility] 9.2.7.2.686 [facility] [id number] 1 2021-01-03 2021-01-03 Office DOMINIQUE Diane 1.2.840.114 [id number] 903 07:44:43 09:30:54 Visit Alxeandr ALTMAN 350.1.13.58 MEDICAL 9.2.7.2.686 [facility] [id number] 1 2020-12-26 2020-12-26 Outpatient R LAMIN [facility] [id number] Univers 10:30:00 10:30:00 OZ [facility] 2020-12-24 2020-12-25 Outpatient nullFlavo Dig[facility] 453 [id number] Memoria 15:32:00 04:59:00 r Disease 11 l Center Vin 2020-12-24 2020-12-24 Outpatient Wright, [facility] [id number] 175 10:32:00 23:59:00 Hui Madden 2020-12-24 2020-12-24 Outpatient WRIGHT, [facility] 7511 [facility] 10:32:00 23:59:00 HUI 2020-11-12 2020-11-12 Outpatient R CARLOS [facility] [id number] 657 Univers 09:00:00 09:00:00 JOSE LUIS caron [facility] 2020-10-27 2020-10-27 [facility] 1.2.840.114 [id number] 98 00:00:00 00:00:00 (Out) Oz Lehman 350.1.13.10 [place] 4.2.7.2.686 Professio [phone] [facility] 059 [facility] 2020-10-27 2020-10-27 [facility] 1.2.840.114 [id number] 98 Univers 00:00:00 00:00:00 (Out) Oz Lehman 350.1.13.10 caron [place] Profess[place] [phone] Me dical nal 059 [facility] 2020-10-24 2020-10-24 Orders Doctor JOANNA 1.2.840.114 [id number] 42 00:00:00 00:00:00 Only Unassigned, BEKA 350.1.13.10 [place] [facility] 4.2.7.2.686 [id number] 009 2020-10-24 2020-10-24 Orders Doctor JOANNA 1.2.840.114 [id number] 42 Univers 00:00:00 00:00:00 Only Unassigned, BEKA 350.1.13.10 ity of [place] [facility] 4.2.7.2.686 Baljinder as [phone] [facility] 009 [place] 2020-09-24 2020-09-24 Refill Carlos [facility] 1.2.840.114 [id number] 24 00:00:00 00:00:00 [place] 350.1.13.10 [place] 4.2.7.2.686 Professio [phone] [facility] 220 [facility] 2020-09-24 2020-09-24 [facility] 1.2.840.114 [id number] 24 Univers 00:00:00 00:00:00 Jose Luis [place] 350.1.13.10 i [place] [phone] [place] dical nal 220 [facility] 2020-09-09 2020-09-09 Patient Daniel NJIMELDA 1.2.840.114 [id number] 44 00:00:00 00:00:00 Outreach Earl PRIMARY [id number] Manuel CARE [id number] PAVILLION [phone] 388 2020-09-09 2020-09-09 Patient Daniel NJIMELDA 1.2.840.114 [id number] Univers 00:00:00 00:00:00 Outreach Earl PRIMARY [id number] i ty [id number] [phone] [place]ical [address] [place] 2020-08-06 2020-08-06 Outpatient R [facility] [id number] [facility] 14:30:00 14:30:00 WENTONG ity of [facility] 2020-08-05 2020-08-05 Outpatient R JA[facility]AULTMAN [facility] [id number] Univers 13:30:00 13:30:00 DEJA ity of [facility] 2020-07-23 2020-07-23 [facility] 1.2.840.114 [id number] [facility] 13:39:08 23:59:00 Encounter Deja PRIMARY [id number] [id number] [phone] [place]ical 807 [place] 2020-07-23 2020-07-23 Office [facility] [id number] 13:31:20 14:37:36 Visit Deja PRIMARY [id number] A CARE [id number] PAVILLION [phone] [facility] 2020-07-23 2020-07-23 Office [facility] [id number] [facility] 13:31:20 14:37:36 Visit Deja PRIMARY [id number] [id number] [phone] [place] [address] [place] 2020-07-23 2020-07-23 Outpatient R [facility] [id number] [facility] 13:30:00 13:30:00 DEJA ity of [facility] 2020-07-09 2020-07-09 Outpatient R [facility] [id number] Univers 09:00:00 09:00:00 ity of [facility] 2020-07-03 2020-07-03 Peg Kimble [facility] [id number] Univers 00:00:00 00:00:00 Oz Lehman [id number] [id number] [phone] [place] 059 [facility] 2020-06-27 2020-06-27 Office [facility] 1.2.840.114 [id number] Univers 10:05:43 11:00:00 Visit Oz Lehman [id number] [id number] [phone] [facility] nal [address] [place] [address] 2020-06-27 2020-06-27 Office Lamin [facility] 1.2.840.114 [id number] Univers 10:05:43 11:00:00 Visit Oz LEHMAN [id number] ity [facility] [id number] [phone] [address] 2020-06-27 2020-06-27 Outpatient R LAMINAULTMAN [facility] [id number] Univers 09:30:00 11:00:00 SENDIL ity [facility] 2020-06-27 2020-06-27 Outpatient R LAMIN [facility] [id number] Univers 09:30:00 09:30:00 SENDIL ity [facility] 2020-05-28 2020-05-28 Laboratory Pc, Adc Echo Room 1 - [facility] 1 .2.840.114 [id number] Univers 08:01:11 08:48:06 Only Oz Kimble 350.1.13. 10 [id number] [phone] [address] 2020-05-28 2020-05-28 Outpatient R [facility] [id number] Univers 08:00:00 08:00:00 ity of [facility] 2020-05-10 2020-05-10 Nurse Visit, Adc Nurse [facility] 1.2.840.1 [id number] Univers 08:31:07 08:43:46 Visit Oz Kimble 350.1.13. 10 [id number] [phone] [address] 2020-05-10 2020-05-10 Outpatient R [facility]ULTMAN [facility] [id number] Univers 08:30:00 08:30:00 SENDIL ity of [facility] 2020-05-07 2020-05-07 Outpatient R [facility] [id number] Univers 08:00:00 08:00:00 ity of [facility] 2020-05-01 2020-05-01 [facility] 1.2.840.114 [id number] Univers 11:02:55 12:04:48 Visit Jose Luis Lehman 350.1.13.10 [place] [phone] [place] 220 [facility] 2020-05-01 2020-05-01 Outpatient R CARLOS [facility] [id number] Univers 10:30:00 10:30:00 WENTONG ity [facility] 2020-04-25 2020-04-25 Office [facility] 1.2.840.114 [id number] Univers 10:07:58 10:48:50 Visit Sendbhavana Lehman 350.1.13.10 [place] [phone] [place] 059 [facility] 2020-04-25 2020-04-25 Outpatient R LAMINAULTMAN [facility] [id number] Univers 10:00:00 10:00:00 SENDIL ity of [facility] 2020-04-25 2020-04-25 Orders Doctor MARSHALL 1.2.840.114 [id number] Univers 00:00:00 00:00:00 Only Unassigned, BEKA 350.1.13.10 ity of [place] [facility] 4.2.7.2.686 Baljinder as [phone] [address] 2020-04-05 2020-04-05 Outpatient R LAMINAULTMAN [facility] [id number] Univers 09:30:00 09:30:00 SENDIL ity [facility] 2020-04-03 2020-04-03 Regulatory Attorney 2, Adc Lab [facility] 1.2.840.114 [id number] Univers 13:13:38 13:28:38 Visit Mona Bhatton 350.1.13.10 [place] [phone] [place]al 353 [facility] 2020-04-03 2020-04-03 Outpatient R ADUM, [facility] [id number] Univers 13:00:00 13:00:00 MONA caron [facility] 2020-04-02 2020-04-02 Office [facility] 1.2.840.114 [id number] Univers 09:00:33 09:54:22 Visit Mona Lehman 350.1.13.10 [place] [phone] [place] 134 [facility] 2020-04-02 2020-04-02 Outpatient R AD, [facility] [id number] Univers 08:30:00 08:30:00 [facility] 2020-04-02 2020-04-02 Outpatient R AD, [facility] [id number] Univers 08:30:00 08:30:00 [facility] 2020-04-02 2020-04-02 Emergency [facility] 1.2.840.114 [id number] Univers 00:24:00 01:09:00 Marlin Lehman 350.1.13.10 [place] [phone] [facility] [address] [place] 2020-04-02 2020-04-02 Orders Doctor JOANNA 1.2.840.114 [id number] Univers 00:00:00 00:00:00 Only Unassigned, BEKA 350.1.13.10 ity of [place] [facility] 4.2.7.2.686 Baljinder as [phone] [facility] 00[address] [place] 2020-03-16 2020-03-16 Telephone [facility] 1.2.840.114 [id number] Univers 00:00:00 00:00:00 Yury Lehman 350.1.13.10 [place] [phone] [place] dical nal 134 [facility] 2020-03-08 2020-03-08 Outpatient R DIGNA [facility] [id number] Univers 11:00:00 11:00:00 LIMA terry f [facility] 2020-03-07 2020-03-07 Telephone Digna [facility] .2.840.114 [id number] Univers 00:00:00 00:00:00 Lima Levi 350.1.13.10 [id number] [phone] [place] dical nal 188 [facility] 2020-02-06 2020-02-06 Outpatient R DORA [facility] [id number] Univers 09:30:00 09:30:00 BRANDON [facility] 2020-02-06 2020-02-06 Office [facility] 1.2.840.114 [id number] Univers 08:57:01 09:24:05 Visit Brandon Lehmna 350.1.13.10 i ty of [place] [phone] [place] dical nal 044 [facility] 2020-01-25 2020-01-31 Inpatient 1 Rei Waldron [facility] [id number] 21:31:00 18:15:00 Rei Waldron [facility] 2020-01-24 2020-01-24 Outpatient R TODD [facility] [id number] Univers 09:45:00 09:45:00 HUMAIR itcaron [facility] 2020-01-23 2020-01-23 Outpatient R TODD [facility] [id number] Univers 10:30:00 10:30:00 RACHEL low [facility] 2019-12-18 2019-12-18 Outpatient R BARRERA [facility] [id number] Univers 08:00:00 08:00:00 YISSEL low [facility] 2019-12-04 2019-12-04 Outpatient R DORA [facility] [id number] Univers 14:15:00 14:15:00 BRANDON low [facility] 2019-11-06 2019-11-06 TelemedicMAGDY Ayala 1.2.840.114 [id number] Univers 07:49:37 08:46:52 ne Visit Yissel Parr 350.1.13.10 ity [facility] [id number] [facility] [phone] [facility] BLDG. [address] [place] 2019-11-06 2019-11-06 Outpatient R BARRERA [facility] [id number] Univers 08:00:00 08:00:00 YISSEL ity [facility] 2019-10-01 2019-10-01 Emergency [facility] [id number] Univers 15:47:29 19:01:00 Stacie Lehman 350.1.13.10 i ty [facility] 4.2.7.2.686 [facility] [phone] [place] [address] [place] 2019-09-05 2019-09-05 Outpatient Eduin JOHN [facility] [id number] Univers 13:30:00 13:30:00 BRANDON ity [facility] 2019-08-28 2019-08-28 Outpatient R ZEKE RUVALCABA [facility] [id number] Univers 15:00:00 15:00:00 ity [facility] 2019-02-27 2019-02-27 Telephone [facility] 1.2.840.114 [id number] Univers 00:00:00 00:00:00 Adán T SPECIALTY 350.1.13.10 ity of [facility] [id number] [facility] s CENTER AT [phone] Va jim MORALES 188 [facility] 2019-02-25 2019-02-25 Telephone [facility] 1.2.840.114 [id number] Univers 00:00:00 00:00:00 Adán T SPECIALTY 350.1.13.10 ity of CARE 4.2.7.2.686 [facility] CENTER AT [phone] Va jim MORALES 205 [facility] 2019-02-22 2019-02-22 [facility] Oz Kimble 1.2.8 40.114 [id number] Univers 09:19:22 23:59:00 Encounter Outpt-Josy, Ccl [place] 350.1.13.10 ity of Hospital 4.2.7.2.686 Baljinder as [phone] [facility] [address] 2019-02-22 2019-02-22 Hospital Oz Kimble 1.2.8 40.114 [id number] Univers 08:00:00 09:18:00 Encounter Outpt-Josy, Ccl Beka 350.1.13.10 ity of Hospital 4.2.7.2.686 Baljinder as [phone] [facility] [address] 2019-02-17 2019-02-17 Office Germán [facility] 1.2.840.114 [id number] Univers 13:09:08 13:54:39 Visit Gary gray [facility] 350.1.13.10 it[place] [phone] [facility] [address] 2019-02-17 2019-02-17 Orders Doctor JOANNA 1.2.840.114 [id number] Univers 00:00:00 00:00:00 Only Unassigned, BEKA 350.1.13.10 ity of [place] HOSPITAL 4.2.7.2.686 Baljinder as [phone] [facility] [address] 2019-01-25 2019-01-25 Telephone Traci Kimble 1.2.932.216 [id number] Univers 00:00:00 00:00:00 Oz [place] 350.1.13.10 ity of Hospital 4.2.7.2.686 Baljinder as [phone] [place] [address] [address] 2019-01-25 2019-01-25 Telephone Traci Kimble 1.2.937.921 [id number] Univers 00:00:00 00:00:00 Oz [place] 350.1.13.10 ity of Hospital 4.2.7.2.686 Baljinder as [phone] [place] [address] [address] 2019-01-20 2019-01-20 Office Lamin, [facility] 1.2.840.114 [id number] Univers 08:55:54 09:56:43 Visit Oz Lehman 350.1.13.10 [place] [phone] Va dical nal [address] [facility] 2019-01-14 2019-01-15 Emergency [place], TRAUMA 1.2.840.114 [id number] Univers 18:20:35 00:24:00 [facility] 350.1.13.10 [place] [phone] [address] 2019-01-13 2019-01-13 Office [facility] 1.2.840.114 [id number] Univers 08:10:44 09:19:41 Visit Lima Lehman 350.1.13.10 it[place] [phone] Va dical nal 205 [facility] 2018-05-24 2018-05-24 Outpatient SARAHY DORADO, SLEClaudia [facility] [id number] [facility] 00:00:00 00:00:00 LY 2016-07-24 2016-07-30 Inpatient nullFlavo [facility] [id number] Memoria 02:04:00 16:20:[address] 2016-07-23 2016-07-30 Outpatient Yaquelin [facility] [id number] 20:04:00 10:20:00 Luna 10 2016-06-10 2016-06-15 Inpatient nullFlavo [facility] [id number] Memoria 16:02:00 18:23:[address] 2016-06-10 2016-06-15 Outpatient Franck [facility] [id number] 10:02:00 12:23:00 Joe W 09 2014-06-26 2014-06-26 nullFlavo [facility] [id number] Memoria 05:25:00 15:14:00 Emergency r [address] 2014-06-25 2014-06-26 Outpatient Courtney, 2.16.840. 2.16.840. 1. [id number] 23:25:00 09:14:00 Atul [id number]. [id number] Cem 3.615.0.1 5.0.224 60 0674-10-25 2013-04-15 Emergency nullFlavo [id number] Memoria 21:04:00 01:45:00 r [facility] 07 l [place] 2013-04-14 2013-04-15 Outpatient 2.16.840. 2.16.840.1. 4 [id number] Memoria 21:04:00 01:45:00 [id number]. [id number] 07 l 3.615.0.1 5.0.101 Jake n [facility] 2013-04-14 2013-04-15 Outpatient 2.16.840. 2.16.840.1. 4 [id number] Memoria 21:04:00 01:45:00 [id number]. [id number] 07 l 3.615.0.1 5.0.101 Jake n [facility] 2013-04-14 2013-04-15 Outpatient 2.16.840. 2.16.840.1. 4 [id number] Memoria 21:04:00 01:45:00 [id number]. [id number] 07 l 3.615.0.1 5.0.101 Jake n [facility] 2013-04-14 2013-04-15 Outpatient 2.16.840. 2.16.840.1. 4 [id number] Memoria 21:04:00 01:45:00 [id number]. [id number] 07 l 3.615.0.1 5.0.101 Jake n [facility] 2013-04-14 2013-04-15 Outpatient 2.16.840. 2.16.840.1. 4 [id number] Memoria 21:04:00 01:45:00 1.137838. [id number] 07 l 3.615.0.1 5.0.101 Jake n [facility] 2012-03-14 2012-03-14 Emergency nullFlavo [id number] Memoria 16:32:00 22:39:00 r [facility] 04 l [place] 2011-11-28 2011-11-30 OU nullFlavo [facility] [id number] Memoria 12:16:00 20:40:00 r Medical 03 l [facility] 2011-09-18 2011-09-18 Emergency nullFlavo [facility] [id number] Memoria 08:23:00 13:34:[address] [facility] 02 [facility] 2011-09-01 2011-09-09 Inpatient nullFlavo [facility] [id number] Memoria 01:40:00 15:00:00 [facility] 01 [facility] 2011-08-19 2011-08-23 Inpatient nullFlavo [facility] [id number] Memoria 14:25:00 15:28:00 r Medical 00 [facility] Results Test Description Test Time Test Comments Results Result Comments Source AFB culture 2021-07-22 18:13:19 Test Item Value Reference Range Interpretation Comme nts AFB culture isolate No growth after 6 weeks of Specimen InformationSpecimen (test code = 543-9) incubation. Source: DrainageSpecimen Site: Thigh: infected wound right thigh [facility] [id number] 18:13:19 Test Item Value Reference Range Interpretation Comments AFB culture No growth Specimen isolate (test after 6 weeks InformationSp ecimen code = 543-9) of Source: [place] geSpecimen incubation. Site: Thigh: in fected wound right [facility] [id number] 18:13:19 Test Item Value Reference Range Interpretation Comments AFB culture No growth Specimen isolate (test after 6 weeks InformationSp ecimen code = 543-9) of Source: [place] geSpecimen incubation. Site: Thigh: in fected wound right [facility] [id number] 18:13:19 Test Item Value Reference Range Interpretation Comments AFB culture No growth Specimen isolate (test after 6 weeks InformationSp ecimen code = 543-9) of Source: [place] geSpecimen incubation. Site: Thigh: in fected wound right [facility] [id number] 18:13:19 Test Item Value Reference Range Interpretation Comments AFB culture No growth Specimen isolate (test after 6 weeks InformationSp ecimen code = 543-9) of Source: [place] geSpecimen incubation. Site: Thigh: in fected wound right [facility] [id number] 18:13:19 Test Item Value Reference Range Interpretation Comments AFB culture No growth Specimen isolate (test after 6 weeks InformationSp ecimen code = 543-9) of Source: [place] geSpecimen incubation. Site: Thigh: in fected wound right [facility] [id number] 18:13:19 Test Item Value Reference Range Interpretation Comments AFB culture No growth Specimen isolate (test after 6 weeks InformationSp ecimen code = 543-9) of Source: [place] geSpecimen incubation. Site: Thigh: in fected wound right [facility] [id number] 18:13:19 Test Item Value Reference Range Interpretation Comments AFB culture No growth Specimen isolate (test after 6 weeks InformationSp ecimen code = 543-9) of Source: [place] geSpecimen incubation. Site: Thigh: in fected wound right [facility]2022-02-01 18:13:19 Test Item Value Reference Range Interpretation Comments AFB culture No growth Specimen isolate (test after 6 weeks InformationSp ecimen code = 543-9) of Source: [place] geSpecimen incubation. Site: Thigh: in fected wound right [facility] [id number] 18:13:19 Test Item Value Reference Range Interpretation Comments AFB culture No growth Specimen isolate (test after 6 weeks InformationSp ecimen code = 543-9) of Source: [place] geSpecimen incubation. Site: Thigh: in fected wound right [facility] [id number] 18:13:19 Test Item Value Reference Range Interpretation Comments AFB culture No growth Specimen isolate (test after 6 weeks InformationSp ecimen code = 543-9) of Source: [place] geSpecimen incubation. Site: Thigh: in fected wound right [facility] [id number] 18:15:13 Test Item Value Reference Range Interpretation Comments Fungus culture No growth Specimen isolate (test after 4 weeks InformationSp ecimen code = 1441) of Source: TissueS pecimen incubation. Site: [facility]2022-01-25 18:15:13 Test Item Value Reference Range Interpretation Comments Fungus culture No growth Specimen isolate (test after 4 weeks InformationSp ecimen code = 1441) of Source: TissueS pecimen incubation. Site: [facility]2022-01-25 18:15:13 Test Item Value Reference Range Interpretation Comments Fungus culture No growth Specimen isolate (test after 4 weeks InformationSp ecimen code = 1441) of Source: TissueS pecimen incubation. Site: [place] 563332-01-25 18:15:13 Test Item Value Reference Range Interpretation Comments Fungus culture No growth Specimen isolate (test after 4 weeks InformationSp ecimen code = 1441) of Source: TissueS pecimen incubation. Site: [facility]2022-01-25 18:15:13 Test Item Value Reference Range Interpretation Comments Fungus culture No growth Specimen isolate (test after 4 weeks InformationSp ecimen code = 1441) of Source: TissueS pecimen incubation. Site: [place] 563332-01-25 18:15:13 Test Item Value Reference Range Interpretation Comments Fungus culture No growth Specimen isolate (test after 4 weeks InformationSp ecimen code = 1441) of Source: TissueS pecimen incubation. Site: [facility]2022-01-25 18:15:13 Test Item Value Reference Range Interpretation Comments Fungus culture No growth Specimen isolate (test after 4 weeks InformationSp ecimen code = 1441) of Source: TissueS pecimen incubation. Site: [facility]2022-01-25 18:15:13 Test Item Value Reference Range Interpretation Comments Fungus culture No growth Specimen isolate (test after 4 weeks InformationSp ecimen code = 1441) of Source: TissueS pecimen incubation. Site: [facility]2022-01-25 18:15:13 Test Item Value Reference Range Interpretation Comments Fungus culture No growth Specimen isolate (test after 4 weeks InformationSp ecimen code = 1441) of Source: TissueS pecimen incubation. Site: [place] 563332-01-25 18:15:13 Test Item Value Reference Range Interpretation Comments Fungus culture No growth Specimen isolate (test after 4 weeks InformationSp ecimen code = 1441) of Source: TissueS pecimen incubation. Site: [facility]2022-01-25 18:15:13 Test Item Value Reference Range Interpretation Comments Fungus culture No growth Specimen isolate (test after 4 weeks InformationSp ecimen code = 1441) of Source: TissueS pecimen incubation. Site: [place] 362712-01-01 14:31:13 Test Item Value Reference Range Interpretation Comments Anaerobic No anaerobic Specimen culture isolate organisms InformationS pecimen (test code = isolated. Source: TissueS pecimen 552) Site: [place] [address]-01-01 14:31:13 Test Item Value Reference Range Interpretation Comments Anaerobic No anaerobic Specimen culture isolate organisms InformationS pecimen (test code = isolated. Source: TissueS pecimen 552) Site: [address]01[address]01 14:31:13 Test Item Value Reference Range Interpretation Comments Anaerobic No anaerobic Specimen culture isolate organisms InformationS pecimen (test code = isolated. Source: TissueS pecimen 552) Site: [place] 362712-01-01 14:31:13 Test Item Value Reference Range Interpretation Comments Anaerobic No anaerobic Specimen culture isolate organisms InformationS pecimen (test code = isolated. Source: TissueS pecimen 552) Site: [place] 362712-01-01 14:31:13 Test Item Value Reference Range Interpretation Comments Anaerobic No anaerobic Specimen culture isolate organisms InformationS pecimen (test code = isolated. Source: TissueS pecimen 552) Site: [place] 362712-01-01 14:31:13 Test Item Value Reference Range Interpretation Comments Anaerobic No anaerobic Specimen culture isolate organisms InformationS pecimen (test code = isolated. Source: TissueS pecimen 552) Site: [place] 362712-01-01 14:31:13 Test Item Value Reference Range Interpretation Comments Anaerobic No anaerobic Specimen culture isolate organisms InformationS pecimen (test code = isolated. Source: TissueS pecimen 552) Site: [place] [address]-01-01 14:31:13 Test Item Value Reference Range Interpretation Comments Anaerobic No anaerobic Specimen culture isolate organisms InformationS pecimen (test code = isolated. Source: TissueS pecimen 552) Site: [place] 362712-01-01 14:31:13 Test Item Value Reference Range Interpretation Comments Anaerobic No anaerobic Specimen culture isolate organisms InformationS pecimen (test code = isolated. Source: [facility] Site: [facility] [id number] 14:31:13 Test Item Value Reference Range Interpretation Comments Anaerobic No anaerobic Specimen culture isolate organisms InformationS pecimen (test code = isolated. Source: [facility] 552) Site: [facility]2022-01-01 14:31:13 Test Item Value Reference Range Interpretation Comments Anaerobic No anaerobic Specimen culture isolate organisms InformationS pecimen (test code = isolated. Source: TissueS pecimen 552) Site: [facility] [id number] 16:51:58 Test Item Value Reference Range Interpretation Comments Gram stain No WBC's or Specimen isolate (test organisms seen. Information Specimen code = 1469) Source: [facility] [id number] 16:51:58 Test Item Value Reference Range Interpretation Comments Aerobic culture No growth Specimen isolate (test after 3 days. InformationSp ecimen code = 498) Source: [facility] Site: [facility] [id number] 16:51:58 Test Item Value Reference Range Interpretation Comments Fungus smear No fungi Specimen (test code = observed. InformationSpec imen Source: 1443) [facility] Site: [facility]2021-12-31 16:51:58 Test Item Value Reference Range Interpretation Comments Gram stain No WBC's or Specimen isolate (test organisms seen. Information Specimen code = 1469) Source: [facility] [id number] 16:51:58 Test Item Value Reference Range Interpretation Comments Aerobic culture No growth Specimen isolate (test after 3 days. InformationSp ecimen code = 498) Source: [facility] [id number] 16:51:58 Test Item Value Reference Range Interpretation Comments Fungus smear No fungi Specimen (test code = observed. InformationSpec imen Source: 1443) TissueSpecime Site: [facility] [id number] 16:51:58 Test Item Value Reference Range Interpretation Comments Gram stain No WBC's or Specimen isolate (test organisms seen. Information Specimen code = 1469) Source: [facility] [id number] 16:51:58 Test Item Value Reference Range Interpretation Comments Aerobic culture No growth Specimen isolate (test after 3 days. InformationSp ecimen code = 498) Source: [facility]: [facility] [id number] 16:51:58 Test Item Value Reference Range Interpretation Comments Fungus smear No fungi Specimen (test code = observed. InformationSpec imen Source: 1443) TissueSpecimen Site: [facility] [id number] 16:51:58 Test Item Value Reference Range Interpretation Comments Gram stain No WBC's or Specimen isolate (test organisms seen. Information Specimen code = 1469) Source: [facility] Site: [facility] [id number] 16:51:58 Test Item Value Reference Range Interpretation Comments Aerobic culture No growth Specimen isolate (test after 3 days. InformationSp ecimen code = 498) Source: [facility] [id number] 16:51:58 Test Item Value Reference Range Interpretation Comments Fungus smear No fungi Specimen (test code = observed. InformationSpec imen Source: 1443) [facility] [id number] 16:51:58 Test Item Value Reference Range Interpretation Comments Gram stain No WBC's or Specimen isolate (test organisms seen. Information Specimen code = 1469) Source: [facility] Site: [facility] [id number] 16:51:58 Test Item Value Reference Range Interpretation Comments Aerobic culture No growth Specimen isolate (test after 3 days. InformationSp ecimen code = 498) Source: [facility]: [facility] [id number] 16:51:58 Test Item Value Reference Range Interpretation Comments Fungus smear No fungi Specimen (test code = observed. InformationSpec imen Source: 1443) [facility] Site: [facility] [id number] 16:51:58 Test Item Value Reference Range Interpretation Comments Gram stain No WBC's or Specimen isolate (test organisms seen. Information Specimen code = 1469) Source: TissueS pecimen [facility]: [facility] [id number] 16:51:58 Test Item Value Reference Range Interpretation Comments Aerobic culture No growth Specimen isolate (test after 3 days. InformationSp ecimen code = 498) Source: [facility] [id number] 16:51:58 Test Item Value Reference Range Interpretation Comments Fungus smear No fungi Specimen (test code = observed. InformationSpec imen Source: 1443) [facility] [id number] 16:51:58 Test Item Value Reference Range Interpretation Comments Gram stain No WBC's or Specimen isolate (test organisms seen. Information Specimen code = 1469) Source: [facility] Site: [facility] [id number] 16:51:58 Test Item Value Reference Range Interpretation Comments Aerobic culture No growth Specimen isolate (test after 3 days. InformationSp ecimen code = 498) Source: [facility] Site: [facility] [id number] 16:51:58 Test Item Value Reference Range Interpretation Comments Fungus smear No fungi Specimen (test code = observed. InformationSpec imen Source: 1443) [facility] [id number] 16:51:58 Test Item Value Reference Range Interpretation Comments Gram stain No WBC's or Specimen isolate (test organisms seen. Information Specimen code = 1469) Source: [facility] [id number] 16:51:58 Test Item Value Reference Range Interpretation Comments Aerobic culture No growth Specimen isolate (test after 3 days. InformationSp ecimen code = 498) Source: [facility] Site: [facility] [id number] 16:51:58 Test Item Value Reference Range Interpretation Comments Fungus smear No fungi Specimen (test code = observed. InformationSpec imen Source: 1443) [facility] [id number] 16:51:58 Test Item Value Reference Range Interpretation Comments Gram stain No WBC's or Specimen isolate (test organisms seen. Information Specimen code = 1469) [facility] [id number] 16:51:58 Test Item Value Reference Range Interpretation Comments Aerobic culture No growth Specimen isolate (test after 3 days. InformationSp ecimen code = 498) Source: [facility] Site: [facility] [id number] 16:51:58 Test Item Value Reference Range Interpretation Comments Fungus smear No fungi Specimen (test code = observed. InformationSpec imen Source: 1443) TissueSpecime Site: [facility] zjkpn7482-18-27 16:51:58 Test Item Value Reference Range Interpretation Comments Gram stain No WBC's or Specimen isolate (test organisms seen. Information Specimen code = 1469) [facility]: [facility] yngqjxo5797-96-44 16:51:58 Test Item Value Reference Range Interpretation Comments Aerobic culture No growth Specimen isolate (test after 3 days. InformationSp ecimen code = 498) Source: [facility] Site: [facility] [id number] 16:51:58 Test Item Value Reference Range Interpretation Comments Fungus smear No fungi Specimen (test code = observed. InformationSpec imen Source: 1443) [facility] [id number] 16:51:58 Test Item Value Reference Range Interpretation Comments Gram stain No WBC's or Specimen isolate (test organisms seen. Information Specimen code = 1469) Source: [facility] Site: [facility] [id number] 16:51:58 Test Item Value Reference Range Interpretation Comments Aerobic culture No growth Specimen isolate (test after 3 days. InformationSp ecimen code = 498) Source: [facility] Site: [facility] pejjo8380-69-12 16:51:58 Test Item Value Reference Range Interpretation Comments Fungus smear No fungi Specimen (test code = observed. InformationSpec imen Source: 1443) [facility] Site: [facility] [id number] 17:00:57 Test Item Value Reference Range Interpretation Comments POC glucose (test code 79 mg/dL 65-99 Opera tor Name: Eboni = 66465-6) AmiDevice ID: [id number] [facility] [id number] 17:00:57 Test Item Value Reference Range Interpretation Comments POC glucose (test code 79 mg/dL 65-99 Opera tor Name: Eboni = 98695-2) AmiDevice ID: [id number] [facility] [id number] 17:00:57 Test Item Value Reference Range Interpretation Comments POC glucose (test code 79 mg/dL 65-99 Opera tor Name: Eboni = 89696-3) AmiDevice ID: [id number] [facility] [id number] 17:00:57 Test Item Value Reference Range Interpretation Comments POC glucose (test code 79 mg/dL 65-99 Opera tor Name: Eboni = 60530-5) AmiDevice ID: [id number] [facility]2021-12-29 17:00:57 Test Item Value Reference Range Interpretation Comments POC glucose (test code 79 mg/dL 65-99 Christophera tor Name: Eboni = 14249-4) AmiDevice ID: [id number] [facility]2021-12-29 17:00:57 Test Item Value Reference Range Interpretation Comments POC glucose (test code 79 mg/dL 65-99 Christophera tor Name: Eboni = 35840-1) AmiDevice ID: [id number] [facility]2021-12-29 17:00:57 Test Item Value Reference Range Interpretation Comments POC glucose (test code 79 mg/dL 65-99 Christophera syeda Name: Eboni = 28961-0) AmiDevice ID: [id number] [facility]2021-12-29 17:00:57 Test Item Value Reference Range Interpretation Comments POC glucose (test code 79 mg/dL 65-99 Opera tor Name: Eboni = 39139-0) AmiDevice ID: [id number] [facility]2021-12-29 17:00:57 Test Item Value Reference Range Interpretation Comments POC glucose (test code 79 mg/dL 65-99 Opera tor Name: Eboni = 90689-4) AmiDevice ID: [id number] [facility]2021-12-29 17:00:57 Test Item Value Reference Range Interpretation Comments POC glucose (test code 79 mg/dL 65-99 Opera tor Name: Eboni = 28971-7) AmiDevice ID: [id number] [facility] [id number] 17:00:57 Test Item Value Reference Range Interpretation Comments POC glucose (test code 79 mg/dL 65-99 Opera tor Name: Eboni = 99824-7) AmiDevice ID: [id number] [facility] , myidg1572-23-72 20:46:00 Test Item Value Reference Range Interpretation Comments test urine, POC (test Negative code = 0279730) Internal QC (test code = 257) QC acceptable [facility] , [id number] 20:46:00 Test Item Value Reference Range Interpretation Comments test urine, POC (test Negative code = 5585856) Internal QC (test code = 257) QC acceptable [facility] , [id number] 20:46:00 Test Item Value Reference Range Interpretation Comments test urine, POC (test Negative code = 2804186) Internal QC (test code = 257) QC acceptable [facility] , [id number] 20:46:00 Test Item Value Reference Range Interpretation Comments test urine, POC (test Negative code = 7477301) Internal QC (test code = 257) QC acceptable [facility] , [id number] 20:46:00 Test Item Value Reference Range Interpretation Comments test urine, POC (test Negative code = 8004278) Internal QC (test code = 257) QC acceptable [facility] , [id number] 20:46:00 Test Item Value Reference Range Interpretation Comments test urine, POC (test Negative code = 6276499) Internal QC (test code = 257) QC acceptable [facility] , [id number] 20:46:00 Test Item Value Reference Range Interpretation Comments test urine, POC (test Negative code = 4721619) Internal QC (test code = 257) QC acceptable [facility] , [id number] 20:46:00 Test Item Value Reference Range Interpretation Comments test urine, POC (test Negative code = 0993340) Internal QC (test code = 257) QC acceptable [facility] , [id number] 20:46:00 Test Item Value Reference Range Interpretation Comments test urine, POC (test Negative code = 1123470) Internal QC (test code = 257) QC acceptable [facility] , [id number] 20:46:00 Test Item Value Reference Range Interpretation Comments test urine, POC (test Negative code = 2378698) Internal QC (test code = 257) QC acceptable [facility] , [id number] 20:46:00 Test Item Value Reference Range Interpretation Comments test urine, POC (test Negative code = 5775119) Internal QC (test code = 257) QC acceptable [address]2021-12-27 17:27:33 Test Item Value Reference Range Interpretation Comments Ventricular rate (test code = 253) Atrial rate (test code = 255) [place] interval (test code = 266) QRSD interval [...] 04-JUN-2021 18:19,-No significant change was found- [address]2021-12-27 17:27:33 Test Item Value Reference Range Interpretation Comments Ventricular rate (test code = 253) Atrial rate (test code = 255) [place] interval (test code = 266) QRSD interval [...] 04-JUN-2021 18:19,-No significant change was found- [address]2021-12-27 17:27:33 Test Item Value Reference Range Interpretation Comments Ventricular rate (test code = 253) Atrial rate (test code = 255) [place] interval (test code = 266) QRSD interval [...] 04-JUN-2021 18:19,-No significant change was found- [address]2021-12-27 17:27:33 Test Item Value Reference Range Interpretation Comments Ventricular rate (test code = 253) Atrial rate (test code = 255) [place] interval (test code = 266) QRSD interval [...] 04-JUN-2021 18:19,-No significant change was found- [address]2021-12-27 17:27:33 Test Item Value Reference Range Interpretation Comments Ventricular rate (test code = 253) Atrial rate (test code = 255) [place] interval (test code = 266) QRSD interval [...] 04-JUN-2021 18:19,-No significant change was found- [address]2021-12-27 17:27:33 Test Item Value Reference Range Interpretation Comments Ventricular rate (test code = 253) Atrial rate (test code = 255) [place] interval (test code = 266) QRSD interval [...] 04-JUN-2021 18:19,-No significant change was found- [address]2021-12-27 17:27:33 Test Item Value Reference Range Interpretation Comments Ventricular rate (test code = 253) Atrial rate (test code = 255) [place] interval (test code = 266) QRSD interval [...] 04-JUN-2021 18:19,-No significant change was found- [address]2021-12-27 17:27:33 Test Item Value Reference Range Interpretation Comments Ventricular rate (test code = 253) Atrial rate (test code = 255) [place] interval (test code = 266) QRSD interval [...] 04-JUN-2021 18:19,-No significant change was found- [address]2021-12-27 17:27:33 Test Item Value Reference Range Interpretation Comments Ventricular rate (test code = 253) Atrial rate (test code = 255) [place] interval (test code = 266) QRSD interval [...] 04-JUN-2021 18:19,-No significant change was found- [address]2021-12-27 17:27:33 Test Item Value Reference Range Interpretation Comments Ventricular rate (test code = 253) Atrial rate (test code = 255) [place] interval (test code = 266) QRSD interval [...] 04-JUN-2021 18:19,-No significant change was found- [address]2021-12-27 17:27:33 Test Item Value Reference Range Interpretation Comments Ventricular rate (test code = 253) Atrial rate (test code = 255) [place] interval (test code = 266) QRSD interval [...] of 04-JUN-2021 18:19,-No significant [facility] was found- [facility] [id number] 11:06:00 Test Item Value Reference Range Interpretation Comments ABO grouping (test code = 883-9) B Rh type (test code = 64376-2) POS Antibody screen (gel) (test code = NEG 890-4) [facility] utkgoa7622-18-67 11:06:00 Test Item Value Reference Range Interpretation Comments ABO grouping (test code = 883-9) B Rh type (test code = 75619-9) POS Antibody screen (gel) (test code = NEG 890-4) [facility] and pdtcar5077-72-59 11:06:00 Test Item Value Reference Range Interpretation Comments ABO grouping (test code = 883-9) B Rh type (test code = 42102-1) POS Antibody screen (gel) (test code = NEG 890-4) [facility] and cioale8681-09-75 11:06:00 Test Item Value Reference Range Interpretation Comments ABO grouping (test code = 883-9) B Rh type (test code = 78515-1) POS Antibody screen (gel) (test code = NEG 890-4) [facility] and twrric6877-29-82 11:06:00 Test Item Value Reference Range Interpretation Comments ABO grouping (test code = 883-9) B Rh type (test code = 59985-0) POS Antibody screen (gel) (test code = NEG 890-4) [facility] bikttk0668-18-81 11:06:00 Test Item Value Reference Range Interpretation Comments ABO grouping (test code = 883-9) B Rh type (test code = 04207-1) POS Antibody screen (gel) (test code = NEG 890-4) [facility] rcbizl2839-47-08 11:06:00 Test Item Value Reference Range Interpretation Comments ABO grouping (test code = 883-9) B Rh type (test code = 89592-2) POS Antibody screen (gel) (test code = NEG 890-4) [facility] afsirf3875-96-43 11:06:00 Test Item Value Reference Range Interpretation Comments ABO grouping (test code = 883-9) B Rh type (test code = 62952-1) POS Antibody screen (gel) (test code = NEG 890-4) [facility] hzzcmj5366-82-43 11:06:00 Test Item Value Reference Range Interpretation Comments ABO grouping (test code = 883-9) B Rh type (test code = 49787-1) POS Antibody screen (gel) (test code = NEG 890-4) [facility] ecydtz0087-85-39 11:06:00 Test Item Value Reference Range Interpretation Comments ABO grouping (test code = 883-9) B Rh type (test code = 66193-7) POS Antibody screen (gel) (test code = NEG 890-4) [facility] ufnyfz4537-98-39 11:06:00 Test Item Value Reference Range Interpretation Comments ABO grouping (test code = 883-9) B Rh type (test code = 00407-9) POS Antibody screen (gel) (test code = NEG 890-4) [facility] RNA [Presence] in Respiratory specimen by EMANUEL with probe fdpfazggf2951-31-03 19:37:44 Test Item Value Reference Range Interpretation Comments SARS-CoV-2 (COVID-19) RNA Not detected Not-Detected [Presence] in Respiratory specimen by EMANUEL with probe detection (test code = 86788-1) 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 InformationSp ecimen code = 01041-7) Source: [place] ueSpecimen Site: Thigh: in fected right thigh wou nd [facility] txnends5233-17-54 20:18:46 Test Item Value Reference Range Interpretation Comments Tissue culture No growth Specimen isolate (test after 3 days. InformationSp ecimen code = 53264-1) Source: [place] ueSpecimen Site: Thigh: in fected right thigh wou nd [facility] dhryubw1251-44-44 20:18:46 Test Item Value Reference Range Interpretation Comments Tissue culture No growth Specimen isolate (test after 3 days. InformationSp ecimen code = 80145-6) Source: [place] ueSpecimen Site: Thigh: in fected right thigh wou [facility] [id number] 20:18:46 Test Item Value Reference Range Interpretation Comments Tissue culture No growth Specimen isolate (test after 3 days. InformationSp ecimen code = 80652-3) Source: [place] ueSpecimen Site: Thigh: in fected right thigh wou [facility]2021-12-24 20:18:46 Test Item Value Reference Range Interpretation Comments Tissue culture No growth Specimen isolate (test after 3 days. InformationSp ecimen code = 01040-3) Source: [place] ueSpecimen Site: Thigh: in fected right thigh wou [facility]2021-12-24 20:18:46 Test Item Value Reference Range Interpretation Comments Tissue culture No growth Specimen isolate (test after 3 days. InformationSp ecimen code = 49654-1) Source: [place] ueSpecimen Site: Thigh: in fected right thigh wou [facility]2021-12-24 20:18:46 Test Item Value Reference Range Interpretation Comments Tissue culture No growth Specimen isolate (test after 3 days. InformationSp ecimen code = 46192-0) Source: [place] ueSpecimen Site: Thigh: in fected right thigh wou [facility] [id number] 20:18:46 Test Item Value Reference Range Interpretation Comments Tissue culture No growth Specimen isolate (test after 3 days. InformationSp ecimen code = 43534-6) Source: Tiss ueSpecimen Site: Thigh: in fected right thigh wou [facility] tlxzhdz9585-88-51 20:18:46 Test Item Value Reference Range Interpretation Comments Tissue culture No growth Specimen isolate (test after 3 days. InformationSp ecimen code = 75598-5) Source: Tiss ueSpecimen Site: Thigh: in fected right thigh wou [facility] alscdox9168-42-38 20:18:46 Test Item Value Reference Range Interpretation Comments Tissue culture No growth Specimen isolate (test after 3 days. InformationSp ecimen code = 34126-1) Source: Tiss ueSpecimen Site: Thigh: in fected right [facility] wou [facility] HospitalT[facility] [id number] 20:18:46 Test Item Value Reference Range Interpretation Comments Tissue culture No growth Specimen isolate (test after 3 days. InformationSp athol hospitaln code = 87189-1) Source: [facility] ueSpecimen Site: Thigh: in fected right thigh wou [facility] HospitalAFB kajde3976-49-28 20:24:42 Test Item Value Reference Range Interpretation Comments AFB stain No acid fast Specimen (test code = bacilli (AFB) InformationSpe cimen 676-7) seen. Source: [place] eSpecimen Site: Thigh: in fected wound right [facility] [id number] 20:24:42 Test Item Value Reference Range Interpretation Comments AFB stain No acid fast Specimen (test code = bacilli (AFB) InformationSpe cimen 676-7) seen. Source: [place] eSpecimen Site: Thigh: [facility] [id number] 20:24:42 Test Item Value Reference Range Interpretation Comments AFB stain No acid fast Specimen (test code = bacilli (AFB) InformationSpe cimen 676-7) seen. Source: [place] eSpecimen Site: Thigh: in fected wound right [facility] [id number] 20:24:42 Test Item Value Reference Range Interpretation Comments AFB stain No acid fast Specimen (test code = bacilli (AFB) InformationSpe cimen 676-7) seen. Source: [place] eSpecimen Site: Thigh: in fected wound [facility] [id number] 20:24:42 Test Item Value Reference Range Interpretation Comments AFB stain No acid fast Specimen (test code = bacilli (AFB) InformationSpe cimen 676-7) seen. Source: [place] eSpecimen Site: Thigh: [facility]ect[facility] [id number] 20:24:42 Test Item Value Reference Range Interpretation Comments AFB stain No acid fast Specimen (test code = bacilli (AFB) InformationSpe cimen 676-7) seen. Source: [place] eSpecimen Site: Thigh: in fected wound [facility] [id number] 20:24:42 Test Item Value Reference Range Interpretation Comments AFB stain No acid fast Specimen (test code = bacilli (AFB) InformationSpe cimen 676-7) seen. Source: [place] eSpecimen Site: Thigh: in fected wound [facility] [id number] 20:24:42 Test Item Value Reference Range Interpretation Comments AFB stain No acid fast Specimen (test code = bacilli (AFB) InformationSpe cimen 676-7) seen. Source: [place] eSpecimen Site: Thigh: in fected wound right [facility] [id number] 20:24:42 Test Item Value Reference Range Interpretation Comments AFB stain No acid fast Specimen (test code = bacilli (AFB) InformationSpe cimen 676-7) seen. Source: [place] eSpecimen Site: Thigh: [facility] [id number] 20:24:42 Test Item Value Reference Range Interpretation Comments AFB stain No acid fast Specimen (test code = bacilli (AFB) InformationSpe cimen 676-7) seen. Source: [place] eSpecimen Site: Thigh: in fected wound right [facility] [id number] 20:24:42 Test Item Value Reference Range Interpretation Comments AFB stain No acid fast Specimen (test code = bacilli (AFB) InformationSpe cimen 676-7) seen. Source: [place] eSpecimen Site: Thigh: in fected wound right [facility] vgkipzm5615-45-30 09:49:57 Test Item Value Reference Range Interpretation Comments Urine culture No growth Specimen isolate (test after 24 InformationSpe cimen code = 18020-5) hours Source: Urin eSpecimen Site: Clean cat [facility] xidyibi4545-72-57 09:49:57 Test Item Value Reference Range Interpretation Comments Urine culture No growth Specimen isolate (test after 24 InformationSpe cimen code = 52202-0) hours Source: [place]rin eSpecimen Site: Clean cat [facility] ffttjqg4670-64-27 09:49:57 Test Item Value Reference Range Interpretation Comments Urine culture No growth Specimen isolate (test after 24 InformationSpe cimen code = 08234-2) hours Source: Urin eSpecimen Site: [facility]2021-12-20 09:49:57 Test Item Value Reference Range Interpretation Comments Urine culture No growth Specimen isolate (test after 24 InformationSpe cimen code = 90513-1) hours Source: Urin eSpecimen Site: [facility]2021-12-20 09:49:57 Test Item Value Reference Range Interpretation Comments Urine culture No growth Specimen isolate (test after 24 InformationSpe cimen code = 42271-5) hours Source: Urin eSpecimen Site: [facility]2021-12-20 09:49:57 Test Item Value Reference Range Interpretation Comments Urine culture No growth Specimen isolate (test after 24 InformationSpe cimen code = 24227-4) hours Source: Urin eSpecimen Site: [facility]2021-12-20 09:49:57 Test Item Value Reference Range Interpretation Comments Urine culture No growth Specimen isolate (test after 24 InformationSpe cimen code = 14591-4) hours Source: Urin eSpecimen Site: [facility]2021-12-20 09:49:57 Test Item Value Reference Range Interpretation Comments Urine culture No growth Specimen isolate (test after 24 InformationSpe cimen code = 79405-2) hours Source: Urin eSpecimen Site: [facility]2021-12-20 09:49:57 Test Item Value Reference Range Interpretation Comments Urine culture No growth Specimen isolate (test after 24 InformationSpe cimen code = 74137-1) hours Source: Urin eSpecimen Site: [facility]2021-12-20 09:49:57 Test Item Value Reference Range Interpretation Comments Urine culture No growth Specimen isolate (test after 24 InformationSpe cimen code = 97456-3) hours Source: Urin eSpecimen Site: [facility]2021-12-20 09:49:57 Test Item Value Reference Range Interpretation Comments Urine culture No growth Specimen isolate (test after 24 InformationSpe cimen code = 06099-4) hours Source: [facility]Specimen [facility] vzmbfgyjcpod3200-93-48 12:52:00 Test Item Value Reference Range Interpretation Comments ABO grouping (test code = 883-9) B Rh type (test code = 27061-5) POS [facility] riixxbhqsozz2592-17-19 12:52:00 Test Item Value Reference Range Interpretation Comments ABO grouping (test code = 883-9) B Rh type (test code = 65019-4) POS [facility] sftfgpwdskiq0790-39-66 12:52:00 Test Item Value Reference Range Interpretation Comments ABO grouping (test code = 883-9) B Rh type (test code = 37100-9) POS [facility] ftkxzpnvabav5071-57-99 12:52:00 Test Item Value Reference Range Interpretation Comments ABO grouping (test code = 883-9) B Rh type (test code = 65163-5) POS [facility] Rh zpmkirkxrtdf2840-85-64 12:52:00 Test Item Value Reference Range Interpretation Comments ABO grouping (test code = 883-9) B Rh type (test code = 87308-7) POS [facility] uiuizqhmtweo7047-20-26 12:52:00 Test Item Value Reference Range Interpretation Comments ABO grouping (test code = 883-9) B Rh type (test code = 71481-9) POS [facility] Rh zsvcbxzchlcy4925-48-65 12:52:00 Test Item Value Reference Range Interpretation Comments ABO grouping (test code = 883-9) B Rh type (test code = 24837-0) POS [facility] zpzdpmmfrofk8868-24-86 12:52:00 Test Item Value Reference Range Interpretation Comments ABO grouping (test code = 883-9) B Rh type (test code = 82404-8) POS [facility] Rh qkmfzgigghef4404-65-44 12:52:00 Test Item Value Reference Range Interpretation Comments ABO grouping (test code = 883-9) B Rh type (test code = 24773-0) POS [facility] jbondpmfsaet5970-66-46 12:52:00 Test Item Value Reference Range Interpretation Comments ABO grouping (test code = 883-9) B Rh type (test code = 87463-6) POS [facility] orlespqepzko4065-94-16 12:52:00 Test Item Value Reference Range Interpretation Comments ABO grouping (test code = 883-9) B Rh type (test code = 32476-6) [place] [facility] [Presence] in Respiratory specimen by EMANUEL with probe [id number] 03:04:32 Test Item Value Reference Range Interpretation Comments SARS-CoV-2 (COVID-19) RNA Not detected Not-Detected [Presence] in Respiratory specimen by EMANUEL with probe detection (test code = 95609-0) 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 (test code = 82031-3) Whether the patient has symptoms related to condition of interest (test code = 23899-1) Patient was hospitalized because of this condition (test code = 96433-1) Whether the patient was admitted to intensive care unit (ICU) for condition of interest (test code = 75795-0) Whether patient resides in a congregate care setting (test code = 62854-1) [facility], 1 [id number] 22:22:00 Test Item Value Reference Range Interpretation Comments Product name (test code Red Blood Cells -1, = 25) Leukored Unit number (test code = [id number]) Product code (test code T0576W88 = 3092) Dispense status (test Transfused code = 24) Blood expiration date (test code = 302) Blood type code (test code = 308) Blood type (test code = B POSITIVE 1314) Compatibility (test code Compatible = 6400) [facility] RBC, 1 [id number] 22:22:00 Test Item Value Reference Range Interpretation Comments Product name (test code Red Blood Cells -1, = 25) Leukored Unit number (test code = [id number] 2686302) Product code (test code W7159M79 = 3092) Dispense status (test Transfused code = 24) Blood expiration date (test code = 302) Blood type code (test code = 308) Blood type (test code = B POSITIVE 1314) Compatibility (test code Compatible = 6400) [facility] RBC, 1 [id number] 22:22:00 Test Item Value Reference Range Interpretation Comments Product name (test code Red Blood Cells -1, = 25) Leukored Unit number (test code = [id number] 0304581) Product code (test code W5893Q26 = 3092) Dispense status (test Transfused code = 24) Blood expiration date (test code = 302) Blood type code (test code = 308) Blood type (test code = B POSITIVE 1314) Compatibility (test code Compatible = 6400) [facility] [id number] 22:22:00 Test Item Value Reference Range Interpretation Comments Product name (test code Red Blood Cells -1, = 25) Leukored Unit number (test code = [id number]) Product code (test code J4429E99 = 3092) Dispense status (test Transfused code = 24) Blood expiration date (test code = 302) Blood type code (test code = 308) Blood type (test code = B POSITIVE 1314) Compatibility (test code Compatible = 6400) [facility], 1 [id number] 22:22:00 Test Item Value Reference Range Interpretation Comments Product name (test code Red Blood Cells -1, = 25) Leukored Unit number (test code = [id number] 9212520) Product code (test code Y8839V50 = 3092) Dispense status (test Transfused code = 24) Blood expiration date (test code = 302) Blood type code (test code = 308) Blood type (test code = B POSITIVE 1314) Compatibility (test code Compatible = 6400) [facility], 1 [id number] 22:22:00 Test Item Value Reference Range Interpretation Comments Product name (test code Red Blood Cells -1, = 25) Leukored Unit number (test code = [id number] 2735545) Product code (test code Q4439H35 = 3092) Dispense status (test Transfused code = 24) Blood expiration date (test code = 302) Blood type code (test code = 308) Blood type (test code = B POSITIVE 1314) Compatibility (test code Compatible = 6400) [facility], 1 [id number] 22:22:00 Test Item Value Reference Range Interpretation Comments Product name (test code Red Blood Cells -1, = 25) Leukored Unit number (test code = [id number] 3218030) Product code (test code I6327M07 = 3092) Dispense status (test Transfused code = 24) Blood expiration date (test code = 302) Blood type code (test code = 308) Blood type (test code = B POSITIVE 1314) Compatibility (test code Compatible = 6400) [facility] RBC, 1 [id number] 22:22:00 Test Item Value Reference Range Interpretation Comments Product name (test code Red Blood Cells -1, = 25) Leukored Unit number (test code = [id number] 2943026) Product code (test code Q9310K55 = 3092) Dispense status (test Transfused code = 24) Blood expiration date (test code = 302) Blood type code (test code = 308) Blood type (test code = B POSITIVE 1314) Compatibility (test code Compatible = 6400) [facility] RBC, 1 [id number] 22:22:00 Test Item Value Reference Range Interpretation Comments Product name (test code Red Blood Cells -1, = 25) Leukored Unit number (test code = [id number] 4640454) Product code (test code F5029U04 = 3092) Dispense status (test Transfused code = 24) Blood expiration date (test code = 302) Blood type code (test code = 308) Blood type (test code = B POSITIVE 1314) Compatibility (test code Compatible = 6400) [facility] RBC, 1 [id number] 22:22:00 Test Item Value Reference Range Interpretation Comments Product name (test code Red Blood Cells -1, = 25) Leukored Unit number (test code = [id number] 0806124) Product code (test code E2010L84 = 3092) Dispense status (test Transfused code = 24) Blood expiration date (test code = 302) Blood type code (test code = 308) Blood type (test code = B POSITIVE 1314) Compatibility (test code Compatible = 6400) [facility] [id number] 20:10:46 Test Item Value Reference Range Interpretation Comments Case number (test code = [id number]) Surgical pathology See link below for report (test code = PDF Lab Report 2255) Result status (test code This is Final Report = [id number]) for [address] pathology [id number] 20:10:46 Test Item Value Reference Range Interpretation Comments Case number (test code = [id number]) Surgical pathology See link below for report (test code = PDF Lab Report 2255) Result status (test code This is Final Report = [id number]) for [address] pathology [id number] 20:10:46 Test Item Value Reference Range Interpretation Comments Case number (test code = [id number]) Surgical pathology See link below for report (test code = PDF Lab Report 2255) Result status (test code This is Final Report = [id number]) for [address] pathology [id number] 20:10:46 Test Item Value Reference Range Interpretation Comments Case number (test code = [id number]) Surgical pathology See link below for report (test code = PDF Lab Report 2255) Result status (test code This is Final Report = [id number]) for [address] pathology eiekdod6779-42-33 20:10:46 Test Item Value Reference Range Interpretation Comments Case number (test code = [id number]) Surgical pathology See link below for report (test code = PDF Lab Report 2255) Result status (test code This is Final Report = [id number]) for [address] pathology rrmwgkv2810-75-22 20:10:46 Test Item Value Reference Range Interpretation Comments Case number (test code = [id number]) Surgical pathology See link below for report (test code = PDF Lab Report 2255) Result status (test code This is Final Report = [id number]) for [address] pathology ndjqslw5077-38-48 20:10:46 Test Item Value Reference Range Interpretation Comments Case number (test code = [id number]) Surgical pathology See link below for report (test code = PDF Lab Report 2255) Result status (test code This is Final Report = 0920680) for [id number] [facility] pathology [id number] 20:10:46 Test Item Value Reference Range Interpretation Comments Case number (test code = [id number]) Surgical pathology See link below for report (test code = PDF Lab Report 2255) Result status (test code This is Final Report = 8151084) for [id number] [facility] pathology [id number] 20:10:46 Test Item Value Reference Range Interpretation Comments Case number (test code = [id number]) Surgical pathology See link below for report (test code = PDF Lab Report 2255) Result status (test code This is Final Report = 1106492) for [id number] [facility] pathology [id number] 20:10:46 Test Item Value Reference Range Interpretation Comments Case number (test code = [id number]) Surgical pathology See link below for report (test code = PDF Lab Report 2255) Result status (test code This is Final Report = 3979737) for [id number] [facility], 1 Qrtla0511-92-20 15:35:00 Test Item Value Reference Range Interpretation Comments Product name (test code Platele tAph LR, Path = 25) Red cont3 Unit number (test code = [id number] 0941980) Product code (test code J1673P02 = 3092) Dispense status (test Transfused code = 24) Blood expiration date (test code = 302) Blood type code (test code = 308) Blood type (test code = O POSITIVE 1314) Compatibility (test code Not required = 6400) [facility], 1 Jitzf1121-80-08 15:35:00 Test Item Value Reference Range Interpretation Comments Product name (test code Platele tAph LR, Path = 25) Red cont3 Unit number (test code = [id number] 7370299) Product code (test code X4626S71 = 3092) Dispense status (test Transfused code = 24) Blood expiration date (test code = 302) Blood type code (test code = 308) Blood type (test code = O POSITIVE 1314) Compatibility (test code Not required = 6400) [facility] Ivcba3032-52-51 15:35:00 Test Item Value Reference Range Interpretation Comments Product name (test code Platerick tApclaudia LR, Path = 25) Red cont3 Unit number (test code = [id number] 5611108) Product code (test code C9807W87 = 3092) Dispense status (test Transfused code = 24) Blood expiration date (test code = 302) Blood type code (test code = 308) Blood type (test code = O POSITIVE 1314) Compatibility (test code Not required = 6400) [facility], 1 [id number] 15:35:00 Test Item Value Reference Range Interpretation Comments Product name (test code Bogdan tApclaudia LR, Path = 25) Red cont3 Unit number (test code = [id number] 3336274) Product code (test code X6300G04 = 3092) Dispense status (test Transfused code = 24) Blood expiration date (test code = 302) Blood type code (test code = 308) Blood type (test code = O POSITIVE 1314) Compatibility (test code Not required = 6400) [facility], 1 Fgils2427-36-70 15:35:00 Test Item Value Reference Range Interpretation Comments Product name (test code Bogdan Fraire LR, Path = 25) Red cont3 Unit number (test code = [id number] 0332555) Product code (test code W2918W89 = 3092) Dispense status (test Transfused code = 24) Blood expiration date (test code = 302) Blood type code (test code = 308) Blood type (test code = O POSITIVE 1314) Compatibility (test code Not required = 6400) [facility] 1 [id number] 15:35:00 Test Item Value Reference Range Interpretation Comments Product name (test code Platerick tApclaudia LR, Path = 25) Red cont3 Unit number (test code = [id number] 2986076) Product code (test code P4751U98 = 3092) Dispense status (test Transfused code = 24) Blood expiration date (test code = 302) Blood type code (test code = 308) Blood type (test code = O POSITIVE 1314) Compatibility (test code Not required = 6400) [facility], 1 [id number] 15:35:00 Test Item Value Reference Range Interpretation Comments Product name (test code Platerick tApclaudia LR, Path = 25) Red cont3 Unit number (test code = [id number] 4448027) Product code (test code S4994L23 = 3092) Dispense status (test Transfused code = 24) Blood expiration date (test code = 302) Blood type code (test code = 308) Blood type (test code = O POSITIVE 1314) Compatibility (test code Not required = 6400) [facility], 1 Wuivx2752-53-36 15:35:00 Test Item Value Reference Range Interpretation Comments Product name (test code Bogdan Fraire LR, Path = 25) Red cont3 Unit number (test code = [id number] 7429153) Product code (test code E8909C96 = 3092) Dispense status (test Transfused code = 24) Blood expiration date (test code = 302) Blood type code (test code = 308) Blood type (test code = O POSITIVE 1314) Compatibility (test code Not required = 6400) [facility], 1 [id number] 15:35:00 Test Item Value Reference Range Interpretation Comments Product name (test code Bogdan Fraire LR, Path = 25) Red cont3 Unit number (test code = [id number] 4699091) Product code (test code D9095K26 = 3092) Dispense status (test Transfused code = 24) Blood expiration date (test code = 302) Blood type code (test code = 308) Blood type (test code = O POSITIVE 1314) Compatibility (test code Not required = 6400) [facility], 1 Iturs8425-27-36 15:35:00 Test Item Value Reference Range Interpretation Comments Product name (test code Platerick tApclaudia LR, Path = 25) Red cont3 Unit number (test code = [id number] 4733715) Product code (test code O7924I97 = 3092) Dispense status (test Transfused code = 24) Blood expiration date (test code = 302) Blood type code (test code = 308) Blood type (test code = O POSITIVE 1314) Compatibility (test code Not required = 6400) [facility] vffi0803-98-63 12:13:24 Test Item Value Reference Range Interpretation Comments Activated clotting time See_Comment H Oper ator Name: (test code = 5298) Bryn Denny norbertoeaDevice ID: [id number] [Automated mess age] The system [employer] generated this result transmitted ref erence range: 96 - 152 sec. The reference r leo was not used to interpret this result as normal/abnor mal. Lab Interpretation (test Abnormal code = 40053-8) [facility] zuap3691-16-84 12:13:24 Test Item Value Reference Range Interpretation Comments Activated clotting time See_Comment H Oper ator Name: (test code = 5298) Bryn Denny norbertoeaDevice ID: [id number] [Automated mess age] The system [employer] generated this result transmitted ref erence range: 96 - 152 sec. The reference r leo was not used to interpret this result as normal/abnor mal. Lab Interpretation (test Abnormal code = 56332-4) [facility] wgsf5984-05-70 12:13:24 Test Item Value Reference Range Interpretation Comments Activated clotting time See_Comment H Oper ator Name: (test code = 5298) Bryn Denny norbertoeaDevice ID: [id number] [Automated mess age] The system [employer] generated this result transmitted ref erence range: 96 - 152 sec. The reference r leo was not used to interpret this result as normal/abnor mal. Lab Interpretation (test Abnormal code = 49721-3) [facility] lfox0577-19-22 12:13:24 Test Item Value Reference Range Interpretation Comments Activated clotting time See_Comment H Oper ator Name: (test code = 5298) Bryn Eduin eneaDevice ID: [id number] [Automated mess age] The system [employer] generated this result transmitted ref erence range: 96 - 152 sec. The reference r leo was not used to interpret this result as normal/abnor mal. Lab Interpretation (test Abnormal code = 88709-1) [facility] rwos7701-20-72 12:13:24 Test Item Value Reference Range Interpretation Comments Activated clotting time See_Comment H Oper ator Name: (test code = 5298) Bryn R eneaDevice ID: [id number] [Automated mess age] The system [employer] generated this result transmitted ref erence range: 96 - 152 sec. The reference r leo was not used to interpret this result as normal/abnor mal. Lab Interpretation (test Abnormal code = 62007-5) [facility] qoom4850-17-83 12:13:24 Test Item Value Reference Range Interpretation Comments Activated clotting time See_Comment H Oper ator Name: (test code = 5298) Bryn R eneaDevice ID: [id number] [Automated mess age] The system [employer] generated this result transmitted ref erence range: 96 - 152 sec. The reference r leo was not used to interpret this result as normal/abnor mal. Lab Interpretation (test Abnormal code = 28743-5) [facility] poli2067-91-66 12:13:24 Test Item Value Reference Range Interpretation Comments Activated clotting time See_Comment H Oper ator Name: (test code = 5298) Bryn R eneaDevice ID: [id number] [Automated mess age] The system [employer] generated this result transmitted ref erence range: 96 - 152 sec. The reference r leo was not used to interpret this result as normal/abnor mal. Lab Interpretation (test Abnormal code = 72058-3) [facility] aozf5228-64-90 12:13:24 Test Item Value Reference Range Interpretation Comments Activated clotting time See_Comment H Oper ator Name: (test code = 5298) Bryn R eneaDevice ID: [id number] [Automated mess age] The system [employer] generated this result transmitted ref erence range: 96 - 152 sec. The reference r leo was not used to interpret this result as normal/abnor mal. Lab Interpretation (test Abnormal code = 87725-8) [facility] cuko9007-09-36 12:13:24 Test Item Value Reference Range Interpretation Comments Activated clotting time See_Comment H Oper ator Name: (test code = 5298) Bryn R eneaDevice ID: [id number] [Automated mess age] The system [employer] generated this result transmitted ref erence range: 96 - 152 sec. The reference r leo was not used to interpret this result as normal/abnor mal. Lab Interpretation (test Abnormal code = 16125-7) [facility] henh8625-04-49 12:13:24 Test Item Value Reference Range Interpretation Comments Activated clotting time See_Comment H Oper ator Name: (test code = 5298) Bryn Denny Carmen ID: [id number] [Automated mess age] The system [employer] generated this result transmitted ref erence range: 96 - 152 sec. The reference r leo was not used to interpret this result as normal/abnor mal. Lab Interpretation (test Abnormal code = 69879-6) [facility] ciguo6326-35-28 14:37:48 Test Item Value Reference Range Interpretation Comments POC sodium (test code = 138 mmol/L 985-538 4672-0) POC potassium (test 5.5 mmol/L 3.5-5 H code = 6298-4) POC glucose (test code 295 mg/dL 65-99 H = 2339-0) POC creatinine (test 5.3 mg/dl 0.5-0.9 H Operato r Name: Pugne code = 97582-0) AileenDevice ID: [id number] POC hemoglobin (test 18.4 g/dL 12-16 H code = 718-7) POC hematocrit (test 54 % 37-47 H code = 4544-3) Lab Interpretation Abnormal (test code = 11420-9) [facility] obfcy0735-01-95 14:37:48 Test Item Value Reference Range Interpretation Comments POC sodium (test code = 138 mmol/L 423-654 8142-0) POC potassium (test 5.5 mmol/L 3.5-5 H code = 6298-4) POC glucose (test code 295 mg/dL 65-99 H = 2339-0) POC creatinine (test 5.3 mg/dl 0.5-0.9 H Operato r Name: Pugne code = 90558-1) [employer]enDevice ID: [id number] POC hemoglobin (test 18.4 g/dL 12-16 H code = 718-7) POC hematocrit (test 54 % 37-47 H code = 4544-3) Lab Interpretation Abnormal (test code = 21217-1) [facility]2021-11-29 14:37:48 Test Item Value Reference Range Interpretation Comments POC sodium (test code = 138 mmol/L 397-306 0170-0) POC potassium (test 5.5 mmol/L 3.5-5 H code = 6298-4) POC glucose (test code 295 mg/dL 65-99 H = 2339-0) POC creatinine (test 5.3 mg/dl 0.5-0.9 H Operato r Name: Pugne code = 61263-6) AileenDevice ID: [id number] POC hemoglobin (test 18.4 g/dL 12-16 H code = 718-7) POC hematocrit (test 54 % 37-47 H code = 4544-3) Lab Interpretation Abnormal (test code = 18050-3) [place] [id number] 14:37:48 Test Item Value Reference Range Interpretation Comments POC sodium (test code = 138 mmol/L 911-748 4725-0) POC potassium (test 5.5 mmol/L 3.5-5 H code = 6298-4) POC glucose (test code 295 mg/dL 65-99 H = 2339-0) POC creatinine (test 5.3 mg/dl 0.5-0.9 H Operato r Name: Pugne code = 17365-9) [employer]ileenDevice ID: [id number] POC hemoglobin (test 18.4 g/dL 12-16 H code = 718-7) POC hematocrit (test 54 % 37-47 H code = 4544-3) Lab Interpretation Abnormal (test code = 38756-0) [facility]2021-11-29 14:37:48 Test Item Value Reference Range Interpretation Comments POC sodium (test code = 138 mmol/L 775-443 4130-0) POC potassium (test 5.5 mmol/L 3.5-5 H code = 6298-4) POC glucose (test code 295 mg/dL 65-99 H = 2339-0) POC creatinine (test 5.3 mg/dl 0.5-0.9 H Operato r Name: Pugne code = 61187-6) AileenDevice ID: [id number] POC hemoglobin (test 18.4 g/dL 12-16 H code = 718-7) POC hematocrit (test 54 % 37-47 H code = 4544-3) Lab Interpretation Abnormal (test code = 49773-3) [facility]2021-11-29 14:37:48 Test Item Value Reference Range Interpretation Comments POC sodium (test code = 138 mmol/L 559-528 0114-0) POC potassium (test 5.5 mmol/L 3.5-5.0 H code = 6298-4) POC glucose (test code 295 mg/dL 65-99 H = 2339-0) POC creatinine (test 5.3 mg/dl 0.5-0.9 H Operato r Name: Johannae code = 52851-6) AiljoshDevice ID: [id number] POC hemoglobin (test 18.4 g/dL 12.0-16.0 H code = 718-7) POC hematocrit (test 54 % 37-47 H code = 4544-3) Lab Interpretation Abnormal (test code = 30255-1) [facility]2021-11-29 14:37:48 Test Item Value Reference Range Interpretation Comments POC sodium (test code = 138 mmol/L 753-101 9800-0) POC potassium (test 5.5 mmol/L 3.5-5.0 H code = 6298-4) POC glucose (test code 295 mg/dL 65-99 H = 2339-0) POC creatinine (test 5.3 mg/dl 0.5-0.9 H Operato r Name: Johannae code = 16086-9) AiljoshDevice ID: [id number] POC hemoglobin (test 18.4 g/dL 12.0-16.0 H code = 718-7) POC hematocrit (test 54 % 37-47 H code = 4544-3) Lab Interpretation Abnormal (test code = 12918-1) [facility]2021-11-29 14:37:48 Test Item Value Reference Range Interpretation Comments POC sodium (test code = 138 mmol/L 719-644 5267-0) POC potassium (test 5.5 mmol/L 3.5-5 H code = 6298-4) POC glucose (test code 295 mg/dL 65-99 H = 2339-0) POC creatinine (test 5.3 mg/dl 0.5-0.9 H Operato r Name: Carminagne code = 39212-3) AileenDevice ID: [id number] POC hemoglobin (test 18.4 g/dL 12-16 H code = 718-7) POC hematocrit (test 54 % 37-47 H code = 4544-3) Lab Interpretation Abnormal (test code = 48013-3) [facility] lezle2039-86-82 14:37:48 Test Item Value Reference Range Interpretation Comments POC sodium (test code = 138 mmol/L 935-657 5373-0) POC potassium (test 5.5 mmol/L 3.5-5 H code = 6298-4) POC glucose (test code 295 mg/dL 65-99 H = 2339-0) POC creatinine (test 5.3 mg/dl 0.5-0.9 H Operato r Name: Johannae code = 66751-5) AileenDevice ID: [id number] POC hemoglobin (test 18.4 g/dL 12-16 H code = 718-7) POC hematocrit (test 54 % 37-47 H code = 4544-3) Lab Interpretation Abnormal (test code = 91188-3) [facility] accrz1536-62-85 14:37:48 Test Item Value Reference Range Interpretation Comments POC sodium (test code = 138 mmol/L 240-091 3857-0) POC potassium (test 5.5 mmol/L 3.5-5 H code = 6298-4) POC glucose (test code 295 mg/dL 65-99 H = 2339-0) POC creatinine (test 5.3 mg/dl 0.5-0.9 H Operato r Name: Johannae code = 35104-9) [employer]ileenDevice ID: [id number] POC hemoglobin (test 18.4 g/dL 12-16 H code = 718-7) POC hematocrit (test 54 % 37-47 H code = 4544-3) Lab Interpretation Abnormal (test code = 80435-4) [facility] [Presence] in Respiratory specimen by EMANUEL with probe nlzbiazjh0638-44-59 07:53:49 Test Item Value Reference Range Interpretation Comments SARS-CoV-2 (COVID-19) RNA Not detected Not-Detected [Presence] in Respiratory specimen by EMANUEL with probe detection (test code = 09411-0) 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2021-08-11 08:17:00 Test Item Value Reference Range Interpretation Comments Glucose Lvl (test code = Glucose Lvl) 94 70-99 [place] 326471-08-11 08:17:00 Test Item Value Reference Range Interpretation Comments BUN (test code = BUN) 27 7-22 [place] 326471-08-11 08:17:00 Test Item Value Reference Range Interpretation Comments Creatinine Lvl (test code = Creatinine 4.95 0.50-1.40 Lvl) [place] 326471-08-11 08:17:00 Test Item Value Reference Range Interpretation Comments Sodium Lvl (test code = Sodium Lvl) 136 135-145 [place] 326471-08-11 08:17:00 Test Item Value Reference Range Interpretation Comments Potassium Lvl (test code = Potassium 3.9 3.5-5.1 Lvl) [place] 326471-08-11 08:17:00 Test Item Value Reference Range Interpretation Comments Chloride Lvl (test code = Chloride Lvl) 103 95-109 [place] 326471-08-11 08:17:00 Test Item Value Reference Range Interpretation Comments CO2 (test code = CO2) 30 24-32 [place] 326471-08-11 08:17:00 Test Item Value Reference Range Interpretation Comments AGAP (test code = AGAP) 6.9 10.0-20.0 [place] 326471-08-11 08:17:00 Test Item Value Reference Range Interpretation Comments Calcium Lvl (test code = Calcium Lvl) 8.5 8.5-10.5 [place] 326471-08-11 08:17:00 Test Item Value Reference Range Interpretation Comments eGFR (test code = eGFR) 10 [facility] [id number] 08:17:00 Test Item Value Reference Range Interpretation Comments Phosphorus (test code = Phosphorus) 3.0 2.5-4.5 [facility] [id number] 08:17:00 Test Item Value Reference Range Interpretation Comments Magnesium Lvl (test code = Magnesium 2.4 1.8-2.4 Lvl) [facility]EhvgatmALWPXNISAR2096-43-21 08:17:00 Test Item Value Reference Range Interpretation Comments WBC (test code = WBC) 2.3 3.7-10.4 [facility] LakewayOalxbtmGTKALSRZXS2769-26-55 08:17:00 Test Item Value Reference Range Interpretation Comments RBC (test code = RBC) 2.65 4.20-5.40 [facility] LakewayEvfmhqtWBIOOOATXG8019-17-68 08:17:00 Test Item Value Reference Range Interpretation Comments Hgb (test code = Hgb) 7.9 12.0-16.0 [facility] LakewayZzsiepaSBZBUGMWXX5306-41-19 08:17:00 Test Item Value Reference Range Interpretation Comments Hct (test code = Hct) 24.0 36.0-48.0 [facility] LakewayMfaxkxmWBOPEDUTEM9765-78-13 08:17:00 Test Item Value Reference Range Interpretation Comments MCV (test code = MCV) 90.6 80.0-98.0 [facility] LakewayEctmtaaVZLEETZQMP3293-65-05 08:17:00 Test Item Value Reference Range Interpretation Comments MCH (test code = MCH) 29.7 pg 27.0-31.0 [facility] LakewayFdhpadlINHIHJALVI6623-55-50 08:17:00 Test Item Value Reference Range Interpretation Comments MCHC (test code = MCHC) 32.7 32.0-36.0 [facility] LakewayXhjnagtZEQZNMTWRZ0264-29-87 08:17:00 Test Item Value Reference Range Interpretation Comments RDW (test code = RDW) 19.1 11.5-14.5 [facility] LakewayNlhcppiZKYWBNKCOA7860-84-93 08:17:00 Test Item Value Reference Range Interpretation Comments Platelet (test code = Platelet) 71 133-450 [facility] LakewayRslmccyYHZYBSZNOX8108-51-94 08:17:00 Test Item Value Reference Range Interpretation Comments MPV (test code = MPV) 9.9 7.4-10.4 [place] 489031-08-11 08:17:00 Test Item Value Reference Range Interpretation Comments Segs (test code = Segs) 56.1 45.0-75.0 [place] 489031-08-11 08:17:00 Test Item Value Reference Range Interpretation Comments Lymphocytes (test code = Lymphocytes) 28.9 20.0-40.0 [place] 489031-08-11 08:17:00 Test Item Value Reference Range Interpretation Comments Monocytes (test code = Monocytes) 8.1 2.0-12.0 [place] 489031-08-11 08:17:00 Test Item Value Reference Range Interpretation Comments Eosinophils (test code = 5.9 See_Comment [A utomated message] The Eosinophils) system which ge nerated this result tra nsmitted reference range : <=4.0. The reference r leo was not used to int erpret this result as normal/abnormal . [place] 489031-08-11 08:17:00 Test Item Value Reference Range Interpretation Comments Basophils (test code = 1.0 See_Comment [Aut omated message] The Basophils) system which ge nerated this result tra nsmitted reference range : <=1.0. The reference r leo was not used to int erpret this result as normal/abnormal . [facility] LakewayBbcytjhKMHQQQLZYX0002-43-84 08:17:00 Test Item Value Reference Range Interpretation Comments Neutrophils # (test code = Neutrophils 1.3 1.5-8.1 #) [facility] LakewayIkxixgqJFZYKXTWVL0956-19-85 08:17:00 Test Item Value Reference Range Interpretation Comments Lymphocytes # (test code = Lymphocytes 0.7 1.0-5.5 #) [place] 489031-08-11 08:17:00 Test Item Value Reference Range Interpretation Comments Monocytes # (test code 0.2 See_Comment [Aut omated message] The = Monocytes #) system which generated this result tra nsmitted reference range : <=0.8. The reference r leo was not used to int erpret this result as normal/abnormal . [place] 489031-08-11 08:17:00 Test Item Value Reference Range Interpretation Comments Eosinophils # (test code 0.1 See_Comment [A utomated message] The = Eosinophils #) system whic h generated this result tra nsmitted reference range : <=0.5. The reference r leo was not used to int erpret this result as normal/abnormal . [place] 326471-08-10 09:30:00 Test Item Value Reference Range Interpretation Comments Glucose Lvl (test code = Glucose Lvl) 61 70-99 [place] 326471-08-10 09:30:00 Test Item Value Reference Range Interpretation Comments BUN (test code = BUN) 13 7-22 [place] 326471-08-10 09:30:00 Test Item Value Reference Range Interpretation Comments Creatinine Lvl (test code = Creatinine 3.71 0.50-1.40 Lvl) [place] 326471-08-10 09:30:00 Test Item Value Reference Range Interpretation Comments Sodium Lvl (test code = Sodium Lvl) 136 135-145 [place] 326471-08-10 09:30:00 Test Item Value Reference Range Interpretation Comments Potassium Lvl (test code = Potassium 4.3 3.5-5.1 Lvl) [place] 326471-08-10 09:30:00 Test Item Value Reference Range Interpretation Comments Chloride Lvl (test code = Chloride Lvl) 103 95-109 [place] 326471-08-10 09:30:00 Test Item Value Reference Range Interpretation Comments CO2 (test code = CO2) 27 24-32 [place] 326471-08-10 09:30:00 Test Item Value Reference Range Interpretation Comments Calcium Lvl (test code = Calcium Lvl) 7.9 8.5-10.5 [place] 326471-08-10 09:30:00 Test Item Value Reference Range Interpretation Comments AGAP (test code = AGAP) 10.3 10.0-20.0 [place] 326471-08-10 09:30:00 Test Item Value Reference Range Interpretation Comments eGFR (test code = eGFR) 15 [place] 326471-08-10 09:30:00 Test Item Value Reference Range Interpretation Comments Magnesium Lvl (test code = Magnesium 2.3 1.8-2.4 Lvl) [place] 326471-08-10 09:30:00 Test Item Value Reference Range Interpretation Comments Phosphorus (test code = Phosphorus) 3.1 2.5-4.5 [place] 489031-08-10 09:30:00 Test Item Value Reference Range Interpretation Comments Segs (test code = Segs) 61.5 45.0-75.0 [place] 489031-08-10 09:30:00 Test Item Value Reference Range Interpretation Comments Lymphocytes (test code = Lymphocytes) 24.6 20.0-40.0 [place] 489031-08-10 09:30:00 Test Item Value Reference Range Interpretation Comments Monocytes (test code = Monocytes) 7.4 2.0-12.0 [place] [address]-08-10 09:30:00 Test Item Value Reference Range Interpretation Comments Eosinophils (test code = 5.5 See_Comment [A utomated message] The Eosinophils) system which ge nerated this result tra nsmitted reference range : <=4.0. The reference r leo was not used to int erpret this result as normal/abnormal . [place] 489031-08-10 09:30:00 Test Item Value Reference Range Interpretation Comments Basophils (test code = 1.0 See_Comment [Aut omated message] The Basophils) system which ge nerated this result tra nsmitted reference range : <=1.0. The reference r leo was not used to int erpret this result as normal/abnormal . [place] 489031-08-10 09:30:00 Test Item Value Reference Range Interpretation Comments Neutrophils # (test code = Neutrophils 1.6 1.5-8.1 #) [place] 489031-08-10 09:30:00 Test Item Value Reference Range Interpretation Comments Lymphocytes # (test code = Lymphocytes 0.6 1.0-5.5 #) [place] 489031-08-10 09:30:00 Test Item Value Reference Range Interpretation Comments Monocytes # (test code 0.2 See_Comment [Aut omated message] The = Monocytes #) system which generated this result tra nsmitted reference range : <=0.8. The reference r leo was not used to int erpret this result as normal/abnormal . [place] 489031-08-10 09:30:00 Test Item Value Reference Range Interpretation Comments Eosinophils # (test code 0.1 See_Comment [A utomated message] The = Eosinophils #) system whic h generated this result tra nsmitted reference range : <=0.5. The reference r leo was not used to int erpret this result as normal/abnormal . [place] 489031-08-10 09:30:00 Test Item Value Reference Range Interpretation [...] studies, if clinically indicated, are recommended. CPT: 65309 [place] 489031-08-10 09:30:00 Test Item Value Reference Range Interpretation Comments WBC (test code = WBC) 2.5 3.7-10.4 [place] [address]-08-10 09:30:00 Test Item Value Reference Range Interpretation Comments RBC (test code = RBC) 2.68 4.20-5.40 [place] [address]-08-10 09:30:00 Test Item Value Reference Range Interpretation Comments Hgb (test code = Hgb) 8.2 12.0-16.0 [place] [address]-08-10 09:30:00 Test Item Value Reference Range Interpretation Comments Hct (test code = Hct) 24.3 36.0-48.0 [place] [address]-08-10 09:30:00 Test Item Value Reference Range Interpretation Comments MCV (test code = MCV) 90.9 80.0-98.0 [place] 27[address]-08-10 09:30:00 Test Item Value Reference Range Interpretation Comments MCH (test code = MCH) 30.5 pg 27.0-31.0 [place] [address]-08-10 09:30:00 Test Item Value Reference Range Interpretation Comments MCHC (test code = MCHC) 33.6 32.0-36.0 [place] 27[address]-08-10 09:30:00 Test Item Value Reference Range Interpretation Comments RDW (test code = RDW) 19.4 11.5-14.5 [place] 489031-08-10 09:30:00 Test Item Value Reference Range Interpretation Comments Platelet (test code = Platelet) 70 133-450 [facility] LakewayJsohyksOLCIOSQYOD2053-20-19 09:30:00 Test Item Value Reference Range Interpretation Comments MPV (test code = MPV) 10.7 7.4-10.4 [place] 326471-08-09 05:10:00 Test Item Value Reference Range Interpretation Comments Glucose Lvl (test code = Glucose Lvl) 69 70-99 [place] 326471-08-09 05:10:00 Test Item Value Reference Range Interpretation Comments BUN (test code = BUN) 29 7-22 [place] 326471-08-09 05:10:00 Test Item Value Reference Range Interpretation Comments Creatinine Lvl (test code = Creatinine 5.14 0.50-1.40 Lvl) [place] 326471-08-09 05:10:00 Test Item Value Reference Range Interpretation Comments Sodium Lvl (test code = Sodium Lvl) 134 135-145 [place] 326471-08-09 05:10:00 Test Item Value Reference Range Interpretation Comments Potassium Lvl (test code = Potassium 5.1 3.5-5.1 Lvl) [facility]2021-08-09 05:10:00 Test Item Value Reference Range Interpretation Comments Chloride Lvl (test code = Chloride Lvl) 98 95-109 [place] 326471-08-09 05:10:00 Test Item Value Reference Range Interpretation Comments CO2 (test code = CO2) 29 24-32 [place] 326471-08-09 05:10:00 Test Item Value Reference Range Interpretation Comments Calcium Lvl (test code = Calcium Lvl) 7.6 8.5-10.5 [place] 326471-08-09 05:10:00 Test Item Value Reference Range Interpretation Comments AGAP (test code = AGAP) 12.1 10.0-20.0 [place] 326471-08-09 05:10:00 Test Item Value Reference Range Interpretation Comments eGFR (test code = eGFR) 10 [place] 326471-08-09 05:10:00 Test Item Value Reference Range Interpretation Comments Magnesium Lvl (test code = Magnesium 2.3 1.8-2.4 Lvl) [facility]2021-08-09 05:10:00 Test Item Value Reference Range Interpretation Comments Phosphorus (test code = Phosphorus) 5.0 2.5-4.5 [facility] LakewayPjoakpvRQIYSQAAWD1406-95-41 05:10:00 Test Item Value Reference Range Interpretation Comments WBC (test code = WBC) 2.7 3.7-10.4 [facility] LakewayXrktyzyZZSPKQOKUU9485-18-72 05:10:00 Test Item Value Reference Range Interpretation Comments RBC (test code = RBC) 2.80 4.20-5.40 [facility] LakewayXtscuafXXDBRWYDDI6913-12-23 05:10:00 Test Item Value Reference Range Interpretation Comments Hgb (test code = Hgb) 8.5 12.0-16.0 [facility] LakewayAnuddqtEOSWDSBFKS3053-16-36 05:10:00 Test Item Value Reference Range Interpretation Comments Hct (test code = Hct) 25.7 36.0-48.0 [facility] LakewayXhxxdcuDOXFANOPNF2064-73-56 05:10:00 Test Item Value Reference Range Interpretation Comments MCV (test code = MCV) 91.7 80.0-98.0 [facility] LakewayQvrfmiqOMOQEMHPIK4611-99-45 05:10:00 Test Item Value Reference Range Interpretation Comments MCH (test code = MCH) 30.4 pg 27.0-31.0 [facility] LakewayIarjuriUBFBXYZERE1600-16-85 05:10:00 Test Item Value Reference Range Interpretation Comments MCHC (test code = MCHC) 33.1 32.0-36.0 [facility] LakewayMlxfxjhYGACSOAQFE6896-60-27 05:10:00 Test Item Value Reference Range Interpretation Comments RDW (test code = RDW) 19.2 11.5-14.5 [place] 489031-08-09 05:10:00 Test Item Value Reference Range Interpretation Comments Platelet (test code = Platelet) 72 133-450 [facility] LakewayXmhbbseTXNAJMENIN2342-46-70 05:10:00 Test Item Value Reference Range Interpretation Comments MPV (test code = MPV) 9.9 7.4-10.4 [facility] LakewayTyrvobyCXXUKCYWGU8459-63-60 05:10:00 Test Item Value Reference Range Interpretation Comments Segs (test code = Segs) 72.6 45.0-75.0 [place] 489031-08-09 05:10:00 Test Item Value Reference Range Interpretation Comments Lymphocytes (test code = Lymphocytes) 15.9 20.0-40.0 [facility] LakewayNntpkkeHXSUCECSHH1925-55-82 05:10:00 Test Item Value Reference Range Interpretation Comments Monocytes (test code = Monocytes) 7.3 2.0-12.0 [facility] LakewayYjguaeiSMNPOOLIEK6916-38-92 05:10:00 Test Item Value Reference Range Interpretation Comments Eosinophils (test code = 3.4 See_Comment [A utomated message] The Eosinophils) system which ge nerated this result tra nsmitted reference range : <=4.0. The reference r leo was not used to int erpret this result as normal/abnormal . [facility] LakewayEmfhdcaSUYQOSQNBN1426-48-57 05:10:00 Test Item Value Reference Range Interpretation Comments Basophils (test code = 0.8 See_Comment [Aut omated message] The Basophils) system which ge nerated this result tra nsmitted reference range : <=1.0. The reference r leo was not used to int erpret this result as normal/abnormal . [facility] LakewayFpblehaMUYTINUVPS5776-31-06 05:10:00 Test Item Value Reference Range Interpretation Comments Neutrophils # (test code = Neutrophils 1.9 1.5-8.1 #) [facility] LakewayPqcixerKMFCRCKONE9837-41-19 05:10:00 Test Item Value Reference Range Interpretation Comments Lymphocytes # (test code = Lymphocytes 0.4 1.0-5.5 #) [facility] LakewayZupirvlSTURYGTBWH4725-94-00 05:10:00 Test Item Value Reference Range Interpretation Comments Monocytes # (test code 0.2 See_Comment [Aut omated message] The = Monocytes #) system which generated this result tra nsmitted reference range : <=0.8. The reference r leo was not used to int erpret this result as normal/abnormal . [facility] LakewayVsuwhabLPAMGGPRKT1717-79-51 05:10:00 Test Item Value Reference Range Interpretation Comments Eosinophils # (test code 0.1 See_Comment [A utomated message] The = Eosinophils #) system whic h generated this result tra nsmitted reference range : <=0.5. The reference r leo was not used to int erpret this result as normal/abnormal . [facility]ITALCXCIHCW2673-30-30 05:10:00 Test Item Value Reference Range Interpretation Comments Ca Ion WB (test code = Ca Ion WB) 1.10 1.05-1.25 [facility]2021-08-09 05:10:00 Test Item Value Reference Range Interpretation Comments Ca Norm WB (test code = Ca Norm WB) 1.06 1.05-1.25 [facility]LE[facility] NTYWRFZUOL2535-91-68 18:36:00 Test Item Value Reference Range Interpretation Comments C difficile DNA (test Negative (01/26/21 1:36 code = C difficile DNA) PM) [facility]2021-08-08 07:33:00 Test Item Value Reference Range Interpretation Comments Ca Ion WB (test code = Ca Ion WB) 1.12 1.05-1.25 [facility]2021-08-08 07:33:00 Test Item Value Reference Range Interpretation Comments Ca Norm WB (test code = Ca Norm WB) 1.07 1.05-1.25 [place] 326471-08-08 07:30:00 Test Item Value Reference Range Interpretation Comments Glucose Lvl (test code = Glucose Lvl) 65 70-99 [facility]2021-08-08 07:30:00 Test Item Value Reference Range Interpretation Comments BUN (test code = BUN) 21 7-22 [facility]2021-08-08 07:30:00 Test Item Value Reference Range Interpretation Comments Creatinine Lvl (test code = Creatinine 4.18 0.50-1.40 Lvl) [facility]2021-08-08 07:30:00 Test Item Value Reference Range Interpretation Comments Sodium Lvl (test code = Sodium Lvl) 136 135-145 [facility]2021-08-08 07:30:00 Test Item Value Reference Range Interpretation Comments Potassium Lvl (test code = Potassium 4.5 3.5-5.1 Lvl) [facility]2021-08-08 07:30:00 Test Item Value Reference Range Interpretation Comments Chloride Lvl (test code = Chloride Lvl) 99 95-109 [place] 326471-08-08 07:30:00 Test Item Value Reference Range Interpretation Comments CO2 (test code = CO2) 31 24-32 [place] 326471-08-08 07:30:00 Test Item Value Reference Range Interpretation Comments AGAP (test code = AGAP) 10.5 10.0-20.0 [place] 326471-08-08 07:30:00 Test Item Value Reference Range Interpretation Comments Calcium Lvl (test code = Calcium Lvl) 7.9 8.5-10.5 [place] 326471-08-08 07:30:00 Test Item Value Reference Range Interpretation Comments eGFR (test code = eGFR) 13 [place] 326471-08-08 07:30:00 Test Item Value Reference Range Interpretation Comments Magnesium Lvl (test code = Magnesium 2.2 1.8-2.4 Lvl) [place] 326471-08-08 07:30:00 Test Item Value Reference Range Interpretation Comments Phosphorus (test code = Phosphorus) 4.4 2.5-4.5 [place] 489031-08-08 07:30:00 Test Item Value Reference Range Interpretation Comments WBC (test code = WBC) 2.3 3.7-10.4 [place] 489031-08-08 07:30:00 Test Item Value Reference Range Interpretation Comments RBC (test code = RBC) 2.88 4.20-5.40 [place] 489031-08-08 07:30:00 Test Item Value Reference Range Interpretation Comments Hgb (test code = Hgb) 8.6 12.0-16.0 [place] 489031-08-08 07:30:00 Test Item Value Reference Range Interpretation Comments Hct (test code = Hct) 26.6 36.0-48.0 [place] 489031-08-08 07:30:00 Test Item Value Reference Range Interpretation Comments MCV (test code = MCV) 92.2 80.0-98.0 [place] 489031-08-08 07:30:00 Test Item Value Reference Range Interpretation Comments MCH (test code = MCH) 29.8 pg 27.0-31.0 [place] 489031-08-08 07:30:00 Test Item Value Reference Range Interpretation Comments MCHC (test code = MCHC) 32.4 32.0-36.0 [place] 489031-08-08 07:30:00 Test Item Value Reference Range Interpretation Comments RDW (test code = RDW) 19.7 11.5-14.5 [place] 489031-08-08 07:30:00 Test Item Value Reference Range Interpretation Comments Platelet (test code = Platelet) 83 133-450 [place] 489031-08-08 07:30:00 Test Item Value Reference Range Interpretation Comments MPV (test code = MPV) 10.2 7.4-10.4 [facility] LakewaySwlyfrpHLECZXAVUE1885-06-43 07:30:00 Test Item Value Reference Range Interpretation Comments Segs (test code = Segs) 64.0 45.0-75.0 [place] 489031-08-08 07:30:00 Test Item Value Reference Range Interpretation Comments Lymphocytes (test code = Lymphocytes) 24.1 20.0-40.0 [place] 489031-08-08 07:30:00 Test Item Value Reference Range Interpretation Comments Monocytes (test code = Monocytes) 7.0 2.0-12.0 [place] 489031-08-08 07:30:00 Test Item Value Reference Range Interpretation Comments Eosinophils (test code = 3.7 See_Comment [A utomated message] The Eosinophils) system which ge nerated this result tra nsmitted reference range : <=4.0. The reference r leo was not used to int erpret this result as normal/abnormal . [facility] LakewayShcswonIERDXNFMZW6081-19-63 07:30:00 Test Item Value Reference Range Interpretation Comments Basophils (test code = 1.2 See_Comment [Aut omated message] The Basophils) system which ge nerated this result tra nsmitted reference range : <=1.0. The reference r leo was not used to int erpret this result as normal/abnormal . [facility] LakewayRistjpzTKTFQHSCHS6588-71-91 07:30:00 Test Item Value Reference Range Interpretation Comments Neutrophils # (test code = Neutrophils 1.5 1.5-8.1 #) [facility] LakewayPimuwivLCTYZSJMVL0283-81-61 07:30:00 Test Item Value Reference Range Interpretation Comments Lymphocytes # (test code = Lymphocytes 0.6 1.0-5.5 #) [place] 489031-08-08 07:30:00 Test Item Value Reference Range Interpretation Comments Monocytes # (test code 0.2 See_Comment [Aut omated message] The = Monocytes #) system which generated this result tra nsmitted reference range : <=0.8. The reference r leo was not used to int erpret this result as normal/abnormal . [place] 489031-08-08 07:30:00 Test Item Value Reference Range Interpretation Comments Eosinophils # (test code 0.1 See_Comment [A utomated message] The = Eosinophils #) system whic h generated this result tra nsmitted reference range : <=0.5. The reference r leo was not used to int erpret this result as normal/abnormal . [facility] HospitalTyro PaymentsMARIA [facility]ILLE [id number] 09:32:00 Test Item Value Reference Range Interpretation Comments Glucose Lvl (test code = Glucose Lvl) 59 70-99 [place] 326471-08-07 09:32:00 Test Item Value Reference Range Interpretation Comments BUN (test code = BUN) 11 7-22 [facility] HospitalTyro PaymentsMARIA [facility]LE [id number] 09:32:00 Test Item Value Reference Range Interpretation Comments Creatinine Lvl (test code = Creatinine 2.75 0.50-1.40 Lvl) [place] 9[address]-08-07 09:32:00 Test Item Value Reference Range Interpretation Comments Sodium Lvl (test code = Sodium Lvl) 138 135-145 [facility] HospitalTyro PaymentsMARIA VILLE [id number] 09:32:00 Test Item Value Reference Range Interpretation Comments Potassium Lvl (test code = Potassium 4.1 3.5-5.1 Lvl) [facility] HospitalTyro PaymentsMARIA VILLE [id number] 09:32:00 Test Item Value Reference Range Interpretation Comments Chloride Lvl (test code = Chloride Lvl) 104 95-109 [facility] HospitalTyro PaymentsMARIA VILLE [id number] 09:32:00 Test Item Value Reference Range Interpretation Comments CO2 (test code = CO2) 29 24-32 [facility] HospitalVidit [id number] 09:32:00 Test Item Value Reference Range Interpretation Comments Calcium Lvl (test code = Calcium Lvl) 8.3 8.5-10.5 [facility] HospitalTyro PaymentsRANDY VILLE [id number] 09:32:00 Test Item Value Reference Range Interpretation Comments AGAP (test code = AGAP) 9.1 10.0-20.0 [facility] HospitalVidit [id number] 09:32:00 Test Item Value Reference Range Interpretation Comments eGFR (test code = eGFR) 21 [facility] [facility] 09:32:00 Test Item Value Reference Range Interpretation Comments Magnesium Lvl (test code = Magnesium 2.2 1.8-2.4 Lvl) [place] 326471-08-07 09:32:00 Test Item Value Reference Range Interpretation Comments Phosphorus (test code = Phosphorus) 3.9 2.5-4.5 [place] 489031-08-07 09:32:00 Test Item Value Reference Range Interpretation Comments WBC (test code = WBC) 2.3 3.7-10.4 [place] 489031-08-07 09:32:00 Test Item Value Reference Range Interpretation Comments RBC (test code = RBC) 2.78 4.20-5.40 [place] [address]-08-07 09:32:00 Test Item Value Reference Range Interpretation Comments Hgb (test code = Hgb) 8.4 12.0-16.0 [place] 489031-08-07 09:32:00 Test Item Value Reference Range Interpretation Comments Hct (test code = Hct) 25.2 36.0-48.0 [place] [address]-08-07 09:32:00 Test Item Value Reference Range Interpretation Comments MCV (test code = MCV) 90.5 80.0-98.0 [place] 489031-08-07 09:32:00 Test Item Value Reference Range Interpretation Comments MCH (test code = MCH) 30.4 pg 27.0-31.0 [place] 489031-08-07 09:32:00 Test Item Value Reference Range Interpretation Comments MCHC (test code = MCHC) 33.5 32.0-36.0 [place] 489031-08-07 09:32:00 Test Item Value Reference Range Interpretation Comments RDW (test code = RDW) 19.0 11.5-14.5 [place] 489031-08-07 09:32:00 Test Item Value Reference Range Interpretation Comments Platelet (test code = Platelet) 87 133-450 [place] 489031-08-07 09:32:00 Test Item Value Reference Range Interpretation Comments MPV (test code = MPV) 10.0 7.4-10.4 [facility] [id number] 05:33:00 Test Item Value Reference Range Interpretation Comments ABO/Rh (test code = ABO/Rh) B POS [facility] [id number] 05:33:00 Test Item Value Reference Range Interpretation Comments Antibody Scrn (test Negative (01/24/21 12:33 code = Antibody Scrn) AM) [facility]BpcsszhXLXIBHDYMH2872-19-63 05:33:00 Test Item Value Reference Range Interpretation Comments Segs (test code = Segs) 60.2 45.0-75.0 [facility] LakewayUjjdzorVESLRFYLLN0273-04-97 05:33:00 Test Item Value Reference Range Interpretation Comments Lymphocytes (test code = Lymphocytes) 28.6 20.0-40.0 [facility] LakewayKjzhvxiNYTWZCEHEQ0677-57-06 05:33:00 Test Item Value Reference Range Interpretation Comments Monocytes (test code = Monocytes) 5.8 2.0-12.0 [facility] LakewayZnjtypcPVVDSIEKOV9755-43-75 05:33:00 Test Item Value Reference Range Interpretation Comments Eosinophils (test code = 4.2 See_Comment [A utomated message] The Eosinophils) system which ge nerated this result tra nsmitted reference range : <=4.0. The reference r leo was not used to int erpret this result as normal/abnormal . [facility] LakewayFadlrcvCLIOLWKTGN0653-95-71 05:33:00 Test Item Value Reference Range Interpretation Comments Basophils (test code = 1.2 See_Comment [Aut omated message] The Basophils) system which ge nerated this result tra nsmitted reference range : <=1.0. The reference r leo was not used to int erpret this result as normal/abnormal . [facility] LakewayGvxmyybJTXFKEYYPR4246-32-19 05:33:00 Test Item Value Reference Range Interpretation Comments Neutrophils # (test code = Neutrophils 2.2 1.5-8.1 #) [facility] LakewayHhqnfngMYNMZTMRIO6602-31-60 05:33:00 Test Item Value Reference Range Interpretation Comments Lymphocytes # (test code = Lymphocytes 1.1 1.0-5.5 #) [facility] LakewayLiddlmqXSRTFVYFWT3748-68-19 05:33:00 Test Item Value Reference Range Interpretation Comments Monocytes # (test code 0.2 See_Comment [Aut omated message] The = Monocytes #) system which generated this result tra nsmitted reference range : <=0.8. The reference r leo was not used to int erpret this result as normal/abnormal . [facility] LakewayItzrxauXADOMLTUZX5594-82-24 05:33:00 Test Item Value Reference Range Interpretation Comments Eosinophils # (test code 0.2 See_Comment [A utomated message] The = Eosinophils #) system whic h generated this result tra nsmitted reference range : <=0.5. The reference r leo was not used to int erpret this result as normal/abnormal . [facility] LakewayUwyewycXGXFHZAAOR8884-34-23 05:53:00 Test Item Value Reference Range Interpretation Comments PT (test code = PT) 14.4 s 12.0-14.7 [facility] LakewayKjeyebiBIXMCVUNJV9908-05-40 05:53:00 Test Item Value Reference Range Interpretation Comments INR (test code = INR) 1.13 1 0.85-1.17 [facility] LakewayScqlkxsNBQGJIOTVR2882-51-44 05:53:00 Test Item Value Reference Range Interpretation Comments Fibrinogen Lvl (test code = Fibrinogen 319 230-510 Lvl) [facility] LakewayBbtpcbzXFJEDBBXLD5221-40-35 05:53:00 Test Item Value Reference Range Interpretation Comments Thrombin Time (test code = Thrombin 15.9 s 15.0-21.2 Time) [facility] LakewayQcnlpwbJKZLGOTNXP0126-26-65 05:53:00 Test Item Value Reference Range Interpretation Comments PTT (test code = PTT) 47.0 s 22.9-35.8 [facility] LakewayOzbjmbzWHJXTFOHMJ5397-84-18 05:53:00 Test Item Value Reference Range Interpretation Comments D-Dimer (test code = D-Dimer) 0.91 [place] 489031-08-05 05:53:00 Test Item Value Reference Range Interpretation Comments Basophils # (test code 0.1 See_Comment [Aut omated message] The = Basophils #) system which generated this result tra nsmitted reference range : <=0.2. The reference r leo was not used to int erpret this result as normal/abnormal . [facility] CenterPARATHYROID IQVFHKS9897-80-31 05:53:00 Test Item Value Reference Range Interpretation Comments Ca Ion WB (test code = Ca Ion WB) 1.24 1.05-1.25 [facility]ATH[facility]SMZGUJH1194-24-17 05:53:00 Test Item Value Reference Range Interpretation Comments Ca Norm WB (test code = Ca Norm WB) 1.25 1.05-1.25 [facility]2021-08-04 10:09:00 Test Item Value Reference Range Interpretation Comments ALT (test code = ALT) 49 See_Comment [Auto mated message] The system which ge nerated this result transmit rohit reference range : <=65. The reference range was not used to interpr et this result as reji l/abnormal. [facility]2021-08-04 10:09:00 Test Item Value Reference Range Interpretation Comments Albumin Lvl (test code = Albumin Lvl) 2.8 3.5-5.0 [facility]2021-08-04 10:09:00 Test Item Value Reference Range Interpretation Comments Alk Phos (test code = Alk Phos) 41 39-136 [facility]2021-08-04 10:09:00 Test Item Value Reference Range Interpretation Comments Bili Direct (test code 0.2 See_Comment [Aut omated message] The = Bili Direct) system which generated this result tra nsmitted reference range : <=0.3. The reference r leo was not used to int erpret this result as reji l/abnormal. [facility] CenterT[facility] Card [id number] 10:09:00 Test Item Value Reference Range Interpretation Comments Bili Total (test code = Bili Total) 0.6 0.2-1.3 [facility]2021-08-04 10:09:00 Test Item Value Reference Range Interpretation Comments Bili Indirect (test 0.4 See_Comment [Automa rohit message] The code = Bili Indirect) system which generated this result tra nsmitted reference range : <=1.0. The reference r leo was not used to int erpret this result as normal/abnormal . [facility] CenterT[facility] Card [id number] 10:09:00 Test Item Value Reference Range Interpretation Comments Total Protein (test code = Total 5.6 6.4-8.4 Protein) [facility]2021-08-04 10:09:00 Test Item Value Reference Range Interpretation Comments AST (test code = AST) 33 See_Comment [Auto mated message] The system which ge nerated this result transmit rohit reference range : <=37. The reference range was not used to interpr et this result as reji l/abnormal. [facility] CenterT[facility] [id number] 10:09:00 Test Item Value Reference Range Interpretation Comments Globulin (test code = Globulin) 2.8 2.7-4.2 [place] 326471-08-04 10:09:00 Test Item Value Reference Range Interpretation Comments A/G Ratio (test code = A/G Ratio) 1.0 1 0.7-1.6 [facility]2021-08-04 10:09:00 Test Item Value Reference Range Interpretation Comments Amylase Lvl (test code = Amylase Lvl) 19 25-115 [place] 326471-08-04 10:09:00 Test Item Value Reference Range Interpretation Comments Lipase Lvl (test code = Lipase Lvl) no gt 73-393 [facility] LakewayWoslgunNDESFHGRTH4186-01-23 10:09:00 Test Item Value Reference Range Interpretation Comments PTT (test code = PTT) 41.4 s 22.9-35.8 [facility] LakewayOstcmvlJVBDDVNJIY7129-18-07 10:09:00 Test Item Value Reference Range Interpretation Comments PT (test code = PT) 15.4 s 12.0-14.7 [facility] LakewayOtznqbkXNQBGRXXCN7283-27-25 10:09:00 Test Item Value Reference Range Interpretation Comments INR (test code = INR) 1.24 1 0.85-1.17 [facility] LakewayXsbmiwiGTCWZFMLUI4121-76-96 10:09:00 Test Item Value Reference Range Interpretation Comments Fibrinogen Lvl (test code = Fibrinogen 312 230-510 Lvl) [facility] LakewayXdwglsqFMBHEHOOQJ4501-83-69 10:09:00 Test Item Value Reference Range Interpretation Comments Thrombin Time (test code = Thrombin 16.6 s 15.0-21.2 Time) [facility] LakewayPvulhdjNHFBJXEIIZ3732-44-08 10:09:00 Test Item Value Reference Range Interpretation Comments D-Dimer (test code = D-Dimer) 4.91 [facility] LakewayNiuihicTKEVFLJWGB6460-19-55 10:09:00 Test Item Value Reference Range Interpretation Comments Basophils # (test code 0.1 See_Comment [Aut omated message] The = Basophils #) system which generated this result tra nsmitted reference range : <=0.2. The reference r leo was not used to int erpret this result as normal/abnormal . [facility] CenterSPECIAL TACBMSUPU9793-95-44 10:09:00 Test Item Value Reference Range Interpretation Comments Hgb A1C (test code = Hgb A1C) 5.6 [facility] CenterCHEM STKSZ6351-48-20 09:07:00 Test Item Value Reference Range Interpretation Comments Amylase Lvl (test code = Amylase Lvl) 4 25-115 [facility] CenterRbnlyqgXTWTKWNAET4057-34-05 09:07:00 Test Item Value Reference Range Interpretation Comments Thrombin Time (test code = Thrombin 18.0 s 15.0-21.2 Time) [facility] CenterQojtewfZIFCZAWLGN5132-21-12 09:07:00 Test Item Value Reference Range Interpretation Comments PT (test code = PT) 24.6 s 12.0-14.7 [facility] HospitalZikjqqfDZXKTTHTRL7583-40-95 09:07:00 Test Item Value Reference Range Interpretation Comments INR (test code = INR) 2.31 1 0.85-1.17 [facility] CenterQgsosdvDOGTIWWRDQ3386-12-34 09:07:00 Test Item Value Reference Range Interpretation Comments PTT (test code = PTT) 57.5 s 22.9-35.8 [facility] CenterKajnzjxHAGDYIQQPH9890-59-11 09:07:00 Test Item Value Reference Range Interpretation Comments Fibrinogen Lvl (test code = Fibrinogen 125 230-510 Lvl) [facility] CenterOcsklfmTYSEREJUXY6628-21-57 09:07:00 Test Item Value Reference Range Interpretation Comments D-Dimer (test code = D-Dimer) 2.28 [facility] CenterBL[facility] BANK [id number] 04:52:00 Test Item Value Reference Range Interpretation Comments RBC product (test code Product available = RBC product) (01/21/21 11:52 PM) [facility] CenterCARDIAC [id number] 00:38:00 Test Item Value Reference Range Interpretation Comments Troponin-I (test code no gt See_Comment [Auto mated message] The = Troponin-I) system which g enerated this result transmit rohit reference range : <=0.40. The reference r leo was not used to interpr et this result as reji l/abnormal. [facility] HospitalTyro PaymentsCARDIAC [id number] 17:47:00 Test Item Value Reference Range Interpretation Comments BNP (test code = BNP) [address] [facility]ARD[facility] JJWFORL1319-27-80 17:47:00 Test Item Value Reference Range Interpretation Comments Troponin-I (test code 0.02 See_Comment [Auto mated message] The = Troponin-I) system which g enerated this result transmit rohit reference range : <=0.40. The reference r leo was not used to interpr et this result as reji l/abnormal. [facility] HospitalUpxgdztCMLLEKTDFZ3006-70-96 17:47:00 Test Item Value Reference Range Interpretation Comments Hep Bs Ag (test code Negative *NA*(01/21/21 = Hep Bs Ag) 12:47 PM) [facility] [place] [id number] 17:43:00 Test Item Value Reference Range Interpretation Comments B/C Ratio (test code = B/C Ratio) 5 1 6-25 [facility] HospitalVidit [id number] 17:43:00 Test Item Value Reference Range Interpretation Comments ALT (test code = ALT) 66 See_Comment [Auto mated message] The system which ge nerated this result transmit rohit reference range : <=65. The reference range was not used to interpr et this result as reji l/abnormal. [facility] [place] [id number] 17:43:00 Test Item Value Reference Range Interpretation Comments Albumin Lvl (test code = Albumin Lvl) 3.0 3.5-5.0 [facility] [place] [id number] 17:43:00 Test Item Value Reference Range Interpretation Comments Alk Phos (test code = Alk Phos) 40 39-136 [facility] [place] [id number] 17:43:00 Test Item Value Reference Range Interpretation Comments Bili Total (test code = Bili Total) 0.5 0.2-1.3 [facility] [place] [id number] 17:43:00 Test Item Value Reference Range Interpretation Comments Total Protein (test code = Total 5.7 6.4-8.4 Protein) [facility] [place] [id number] 17:43:00 Test Item Value Reference Range Interpretation Comments AST (test code = AST) 52 See_Comment [Auto mated message] The system which ge nerated this result transmit rohit reference range : <=37. The reference range was not used to interpr et this result as reji l/abnormal. [facility] [place] [id number] 17:43:00 Test Item Value Reference Range Interpretation Comments Globulin (test code = Globulin) 2.7 2.7-4.2 [facility] CenterTango Card [id number] 17:43:00 Test Item Value Reference Range Interpretation Comments A/G Ratio (test code = A/G Ratio) 1.1 1 0.7-1.6 [facility] CenterTango Card [id number] 17:43:00 Test Item Value Reference Range Interpretation Comments Lactic Acid Lvl (test code = Lactic 1.1 0.5-2.2 Acid Lvl) [facility] [id number] 16:20:00 Test Item Value Reference Range Interpretation Comments ABO/Rh (test code = ABO/Rh) B POS [facility] HospitalTyro Paymentsi.Meter [facility] [id number] 16:20:00 Test Item Value Reference Range Interpretation Comments Antibody Scrn (test Negative (01/21/21 11:20 code = Antibody Scrn) AM) [facility] CenterCswwcdzCAREHBEURE5504-22-52 16:20:00 Test Item Value Reference Range Interpretation Comments Anisocyte (test code = 1+ *ABN*(01/21/21 Anisocyte) 11:20 AM) [facility] HospitalAntegrin TherapeuticsCEN[facility] [id number] 15:35:00 Test Item Value Reference Range Interpretation Comments Lactase Lvl (test code = Lactase Lvl) 2.0 [facility] HospitalAntegrin TherapeuticsCEN[facility] [id number] 15:35:00 Test Item Value Reference Range Interpretation Comments Sucrase Lvl (test code = Sucrase Lvl) 38.6 [facility] CenterKisstixxCEN[facility] [id number] 15:35:00 Test Item Value Reference Range Interpretation Comments Maltase Lvl (test code = Maltase Lvl) 177.2 [facility] CenterKisstixxCEN[facility] [id number] 15:35:00 Test Item Value Reference Range Interpretation Comments Palatinase Lvl (test code = Palatinase 13.8 Lvl) [facility] HospitalRyagkjwDAHOGRMKYMYH5636-04-87 13:21:00 Test Item Value Reference Range Interpretation Comments Potassium WB (test code = Potassium WB) 5.1 3.5-5.1 [facility] CenterHqmjbbfEXWNQRXVGGGYT9232-83-78 13:21:00 Test Item Value Reference Range Interpretation Comments S Preg (test code = S Negative 8*NA*(01/21/21 Preg) 8:21 AM) [facility] CenterOnkwkzzEQDZRQLZVN8967-01-24 11:19:00 Test Item Value Reference Range Interpretation Comments Coronavirus (COVID-19) Not Detected (01/21/21 EMANUEL (test code = 6:19 AM) Coronavirus (COVID-19) EMANUEL) [facility] [id number] 16:39:05 Test Item Value Reference Range Interpretation Comments Glucose POC (test 183 mg/dL 70-115 H If you con remote sensing technologist your code = Glucose POC) patient critically ill, the Merlin-Accu Check Infrom II meter should not be used for Glucose determination. Draw a venous Glucose and send to the main Lab for analysis. Urine Pzztouf2664-41-50 11:32:13 Test Item Value Reference Range Interpretation [...] Escherichia coli C Urine Added by [email or web address]_CUL_INDPOC Iruzlrx6609-55-17 07:52:10 Test Item Value Reference Range Interpretation Comments Glucose POC (test 160 mg/dL 70-115 H If you con remote sensing technologist your code = Glucose POC) patient critically ill, the Merlin-Accu Check Infrom II meter should not be used for Glucose determination. Draw a venous Glucose and send to the main Lab for analysis. POC [id number] 19:32:05 Test Item Value Reference Range Interpretation Comments Glucose POC (test 184 mg/dL 70-115 H If you con remote sensing technologist your code = Glucose POC) patient critically ill, the Merlin-Accu Check Infrom II meter should not be used for Glucose determination. Draw a venous Glucose and send to the main Lab for analysis. POC [id number] 17:16:35 Test Item Value Reference Range Interpretation Comments Glucose POC (test 281 mg/dL 70-115 H Notify RN or MDIf you code = Glucose POC) consider your patient critically ill, the Merlin-Accu Chec k Infrom II meter should not be used for Glucos e determination. Draw a venous Glucose and send to the main Lab for analysis. POC [id number] 12:00:38 Test Item Value Reference Range Interpretation Comments Glucose POC (test 138 mg/dL 70-115 H Notify RN or MDIf you code = Glucose POC) consider your patient critically ill, the Merlin-Accu Chec k Infrom II meter should not be used for Glucos e determination. Draw a venous Glucose and send to the main Lab for analysis. POC [id number] 07:41:32 Test Item Value Reference Range Interpretation Comments Glucose POC (test 206 mg/dL 70-115 H Notify RN or MDIf you code = Glucose POC) consider your patient critically ill, the Merlin-Accu Chec k Infrom II meter should not be used for Glucos e determination. Draw a venous Glucose and send to the main Lab for analysis. Urinalysis [id number] 21:07:21 Test Item Value Reference Range Interpretation Comments UA WBC (test code = UA WBC) TNTC 0-5 A UA RBC (test code = UA RBC) 6-10 0-5 A UA Bacteria (test code = UA Bacteria) Profuse A UA Squam Epithelial (test code = UA 6-10 A Squam Epithelial) Urinalysis with Culture, if [id number] 20:35:14 Test Item Value Reference Range Interpretation [...] Micro Indicated Not Indicated A Ind?) POC [id number] 19:06:34 Test Item Value Reference Range Interpretation Comments Glucose POC (test 207 mg/dL 70-115 H If you con remote sensing technologist your code = Glucose POC) patient critically ill, the Merlin-Accu Check Infrom II meter should not be used for Glucose determination. Draw a venous Glucose and send to the main Lab for analysis. POC [id number] 17:12:03 Test Item Value Reference Range Interpretation Comments Glucose POC (test 173 mg/dL 70-115 H Notify RN or MDIf you code = Glucose POC) consider your patient critically ill, the Merlin-Accu Chec k Infrom II meter should not be used for Glucos e determination. Draw a venous Glucose and send to the main Lab for analysis. POC [id number] 11:58:01 Test Item Value Reference Range Interpretation Comments Glucose POC (test 289 mg/dL 70-115 H Notify RN or MDIf you code = Glucose POC) consider your patient critically ill, the Merlin-Accu Chec k Infrom II meter should not be used for Glucos e determination. Draw a venous Glucose and send to the main Lab for analysis. POC [id number] 08:19:37 Test Item Value Reference Range Interpretation Comments Glucose POC (test 201 mg/dL 70-115 H Notify RN or MDIf you code = Glucose POC) consider your patient critically ill, the Merlin-Accu Chec k Infrom II meter should not be used for Glucos e determination. Draw a venous Glucose and send to the main Lab for analysis. POC [id number] 20:37:35 Test Item Value Reference Range Interpretation Comments Glucose POC (test 272 mg/dL 70-115 H If you con remote sensing technologist your code = Glucose POC) patient critically ill, the Merlin-Accu Check Infrom II meter should not be used for Glucose determination. Draw a venous Glucose and send to the main Lab for analysis. POC [id number] 17:23:05 Test Item Value Reference Range Interpretation Comments Glucose POC (test 229 mg/dL 70-115 H If you con remote sensing technologist your code = Glucose POC) patient critically ill, the Merlin-Accu Check Infrom II meter should not be used for Glucose determination. Draw a venous Glucose and send to the main Lab for analysis. POC [id number] 12:01:01 Test Item Value Reference Range Interpretation Comments Glucose POC (test 155 mg/dL 70-115 H If you con remote sensing technologist your code = Glucose POC) patient critically ill, the Merlin-Accu Check Infrom II meter should not be used for Glucose determination. Draw a venous Glucose and send to the main Lab for analysis. POC [id number] 08:07:32 Test Item Value Reference Range Interpretation Comments Glucose POC (test 248 mg/dL 70-115 H If you con remote sensing technologist your code = Glucose POC) patient critically ill, the Merlin-Accu Check Infrom II meter should not be used for Glucose determination. Draw a venous Glucose and send to the main Lab for analysis. IG [id number] 06:50:39 Test Item Value Reference Range Interpretation Comments IG (test code = IG) 0.7 % 0.0-5.0 IG Abs (test code = IG Abs) 0 x10 N Complete Blood Count with [id number] 06:50:38 Test Item Value Reference Range Interpretation [...] code = IPF) 0 % N Automated Ektbpnwsaduk1536-26-44 06:50:38 Test Item Value Reference Range Interpretation Comments Neutro Auto (test code = Neutro 50.3 % 36.0-70.0 Auto) Lymph Auto (test code = Lymph Auto) 38.6 % 12.0-44.0 Appling Auto (test code = Appling Auto) 7.3 % 0.0-11.0 Eos, Auto (test code = Eos, Auto) 2.4 % 0.0-7.0 Basophil Auto (test code = Basophil 0.7 % 0.0-2.0 Auto) Neutro Absolute (test code = Neutro 3.0 x10 1.6-7.4 Absolute) Lymph Absolute (test code = Lymph 2.28 x10 .50-4.60 Absolute) Appling Absolute (test code = Appling .43 x10 .00-1.20 Absolute) Eos Absolute (test code = Eos 0.14 x10 0.00-0.74 Absolute) Baso Absolute (test code = Baso 0.04 x10 0.00-0.21 Absolute) Basic Metabolic [id number] 05:38:20 Test Item Value Reference Range Interpretation [...] Level) Hemolysis (test code = 0 mg/dL 811 Hemolysis) Icterus (test code = Icterus) 0 mg/dL 8-11 Lipemia (test code = Lipemia) 0 mg/dL 8-11 Basic Metabolic [id number] 05:38:20 Test Item Value Reference Range Interpretation [...] = 0 mg/dL 8-11 Lipemia) Basic Metabolic [id number] 05:38:20 Test Item Value Reference Range Interpretation [...] ag e have not been validated by [facility] MDRD study and should be interpreted [...] ag e have not been validated by [facility] MDRD study and should be interpreted [...] code = 0 mg/dL 8-11 Lipemia) POC [id number] 20:28:33 Test Item Value Reference Range Interpretation Comments Glucose POC (test 169 mg/dL 70-115 H If you con remote sensing technologist your code = Glucose POC) patient critically ill, the Merlin-Accu Check Infrom II meter should not be used for Glucose determination. Draw a venous Glucose and send to the main Lab for analysis. POC [id number] 16:39:30 Test Item Value Reference Range Interpretation Comments Glucose POC (test 103 mg/dL 70-115 If you con remote sensing technologist your code = Glucose POC) patient critically ill, the Merlin-Accu Check Infrom II meter should not be used for Glucose determination. Draw a venous Glucose and send to the main Lab for analysis. RPR Sawpjdeozxm6085-03-29 12:08:56 Test Item Value Reference Range Interpretation Comments RPR Qual (test code = RPR Qual) Non-Reactive Non-Reactive Reactive Control (test code = Reactive Reactive Control) Weak Reactive Control (test Weak Reactive code = Weak Reactive Control) Non-Reactive Control (test code Non-Reactive = Non-Reactive Control) Lot # (test code = Lot #) [id number] N Expiration Dt (test code = 03-20-2021 N Expiration Dt) POC [id number] 11:52:31 Test Item Value Reference Range Interpretation Comments Glucose POC (test 250 mg/dL 70-115 H If you con remote sensing technologist your code = Glucose POC) patient critically ill, the Merlin-Accu Check Infrom II meter should not be used for Glucose determination. Draw a venous Glucose and send to the main Lab for analysis. POC [id number] 07:55:29 Test Item Value Reference Range Interpretation Comments Glucose POC (test 205 mg/dL 70-115 H If you con remote sensing technologist your code = Glucose POC) patient critically ill, the Merlin-Accu Check Infrom II meter should not be used for Glucose determination. Draw a venous Glucose and send to the main Lab for analysis. Lipid [id number] 05:46:04 Test Item Value Reference Range Interpretation [...] LDL/HDL Ratio=L DL Calc/HDL Chol Thyroid Stimulating [id number] 05:46:04 Test Item Value Reference Range Interpretation Comments TSH (test code = TSH) 3.274 mcIU/mL 0.550-4.780 Hemoglobin [id number] 05:41:08 Test Item Value Reference Range Interpretation Comments Hemoglobin A1c (test code 7.6 % 4.0-5.8 H Di abetic >=6.5 = Hemoglobin A1c) %Prediabet es 5.7-6.4 %Normal <5.7 % Hepatitis B Surface [id number] 21:19:36 Test Item Value Reference Range Interpretation Comments Hep Bs Ag (test code = Hep Bs Non-Reactive Non-Reactive Ag) Novel Coronavirus SARS-CoV-2, [id number] 11:16:16 Test Item Value Reference Range Interpretation [...] Emergency Use Authorization." Novel Coronavirus (COVID-19), EMANUEL [id number] 11:11:24TNPTest not sent and performed at [facility].Rapid was perfomed in Microbiology.Wrong covid test was ord ered.Urine [id number] 00:17:49 Test Item Value Reference Range Interpretation [...] i s equal to or greater t csott 300 ng/ml.If confir mation of positive res [...] Propoxyphene Confirmation wi thin 7 days. Alcohol [id number] 00:17:29 Test Item Value Reference Range Interpretation Comments Ethanol Level 9.0 mg/dL N The pharmacolo gical (test code = response to blo od alcohol Ethanol Level) levels may va ry from individual to i ndividual. The fatal omkar ntration has been report ed to be >400 mg/dl. Comprehensive Metabolic [id number] 00:17:28 Test Item Value Reference Range Interpretation [...] = Lipemia) 0 g/dL 1-2 Comprehensive Metabolic [id number] 00:17:28 Test Item Value Reference Range Interpretation [...] = 0 g/dL 1-2 Lipemia) Comprehensive Metabolic [id number] 00:17:28 Test Item Value Reference Range Interpretation [...] g/dL 1-2 Lipemia) Complete Blood Count with [id number] 23:26:28 Test Item Value Reference Range Interpretation [...] code = IPF) 0 % N Automated Tjbdrbjlzxuy1504-96-54 23:26:28 Test Item Value Reference Range Interpretation Comments Neutro Auto (test code = Neutro 67.1 % 36.0-70.0 Auto) Lymph Auto (test code = Lymph Auto) 23.3 % 12.0-44.0 Appling Auto (test code = Appling Auto) 5.8 % 0.0-11.0 Eos, Auto (test code = Eos, Auto) 2.3 % 0.0-7.0 Basophil Auto (test code = Basophil 0.8 % 0.0-2.0 Auto) Neutro Absolute (test code = Neutro 6.0 x10 1.6-7.4 Absolute) Lymph Absolute (test code = Lymph 2.10 x10 .50-4.60 Absolute) Appling Absolute (test code = Appling .52 x10 .00-1.20 Absolute) Eos Absolute (test code = Eos 0.21 x10 0.00-0.74 Absolute) Baso Absolute (test code = Baso 0.07 x10 0.00-0.21 Absolute) IG [id number] 23:26:28 Test Item Value Reference Range Interpretation Comments IG (test code = IG) 0.7 % 0.0-5.0 IG Abs (test code = IG Abs) 0 x10 N HERPES VIRUS ANTIBODY, [id number] 21:46:00 Test Item Value Reference Range Interpretation Comments HERPES VIRUS IGM (BEAKER) Negative SE E ATTACHMENT (test code = 1808) BLOOD [id number] 06:00:00 Test Item Value Reference Range Interpretation Comments CULTURE (BEAKER) (test No growth in 5 days code = 1095) BLOOD [id number] 06:00:00 Test Item Value Reference Range Interpretation Comments CULTURE (BEAKER) (test No growth in 5 days code = 1095) POCT-GLUCOSE [id number] 12:11:00 Test Item Value Reference Range Interpretation Comments POC-GLUCOSE METER 154 mg/dL 70-110 H TESTED AT [place] [address] ([facility]) (test code = [place] 1538) [address] POCT-GLUCOSE [id number] 07:53:00 Test Item Value Reference Range Interpretation Comments POC-GLUCOSE METER 87 mg/dL 70-110 TESTED AT [facility] 6720 (BEAKER) (test code = [place] Denny [facility] [address] 1538) POCT-GLUCOSE [id number] 06:49:00 Test Item Value Reference Range Interpretation Comments POC-GLUCOSE METER 79 mg/dL 70-[address] [facility] 67[facility] (BEAKER) (test code = [place] [facility] [address] 1538) COMPREHENSIVE METABOLIC [id number] 06:15:00 Test Item Value Reference Range Interpretation [...] S NOT APPLICABLE FOR DIALYSIS PATIEN TS. [id number] 06:11:00 Test Item Value Reference Range Interpretation Comments MAGNESIUM (BEAKER) (test code = 2.1 mg/dL 1.6-2.6 627) HEPATIC FUNCTION [id number] 06:11:00 Test Item Value Reference Range Interpretation [...] code = 513 U/L 6-55 H 347) [id number] 05:30:00 Test Item Value Reference Range Interpretation Comments FIBRINOGEN LEVEL (BEAKER) (test 368 mg/dl 225-434 code = 658) [id number] 05:30:00 Test Item Value Reference Range Interpretation Comments PARTIAL THROMBOPLASTIN TIME 42.2 seconds 22.5-36.0 H (BEAKER) (test code = 760) PROTHROMBIN [id number] 05:29:00 Test Item Value Reference Range Interpretation Comments PROTIME (BEAKER) (test code = 14.8 seconds 11.7-14.7 H 759) INR (BEAKER) (test code = 370) 1.2 <=5.9 RECOMMENDED COUMADIN/WARFARIN INR THERAPY RANGESSTANDARD DOSE: 2.0 - 3.0 Includes: PROPHYLAXIS for venous thrombosis, systemic embolization; TREATMENT for venous thrombosis and/or pulmonary embolus.HIGH RISK: Target INR is 2.5-3.5 for patients with mechanical heart valves.POCT-GLUCOSE [id number] 21:09:00 Test Item Value Reference Range Interpretation Comments POC-GLUCOSE METER 178 mg/dL 70-[address] [facility] [address] ([facility]) (test code = [place] 1538) [address] POCT-GLUCOSE [id number] 17:18:00 Test Item Value Reference Range Interpretation Comments POC-GLUCOSE METER 178 mg/dL 70-110 H TESTED AT [place] [address] ([facility]) (test code = [place] 1538) [address] POCT-GLUCOSE [id number] 13:48:00 Test Item Value Reference Range Interpretation Comments POC-GLUCOSE METER 150 mg/dL 70-110 H TESTED AT [place] [address] ([facility]) (test code = [place] 1538) [address] FACTOR 5 ACTIVITY (BLEEDING RISK)2017-01-06 10:04:00 Test Item Value Reference Range Interpretation Comments FACTOR V ACTIVITY ([facility]) (test code 90.0 % 60.0-150.0 = 665) Effective 10/24/2013: Reference Range Change-Adult onlyNew: 60.0-150.0 Previous: 50.0-150.0CYTOMEGALOVIRUS ANTIBODY, [id number] 09:42:00 Test Item Value Reference Range Interpretation Comments CYTOMEGALOVIRUS IGM ANTIBODY Negative (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) (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 G 1807) CYTOMEGALOVIRUS ANTIBODY, [id number] 08:59:00 Test Item Value Reference Range Interpretation Comments CYTOMEGALOVIRUS IGG ANTIBODY Positive ([facility]) (test code = 790) EBV-VCA ANTIBODY, [id number] 08:59:00 Test Item Value Reference Range Interpretation Comments JASE-WALL VCA IGG ([facility]) (test Positive code = 983) EBV-VCA ANTIBODY, [id number] 08:59:00 Test Item Value Reference Range Interpretation Comments JASE-WALL VCA IGM ([facility]) (test Negative code = 984) POCT-GLUCOSE [id number] 07:59:00 Test Item Value Reference Range Interpretation Comments POC-GLUCOSE METER 81 mg/dL 70-110 TESTED AT [place] [address] ([facility]) (test code = [place] [facility] [address] 1538) COMPREHENSIVE METABOLIC [id number] 06:23:00 Test Item Value Reference Range Interpretation Comments TOTAL PROTEIN 5.3 gm/dL 6.0-8.3 L ([facility]) (test code = 770) ALBUMIN ([facility]) 2.4 g/dL 3.5-5.0 L (test code [...] S NOT APPLICABLE FOR DIALYSIS PATIEN TS. [id number] 06:17:00 Test Item Value Reference Range Interpretation Comments MAGNESIUM (BEAKER) (test code = 1.8 mg/dL 1.6-2.6 627) HEPATIC FUNCTION [id number] 06:17:00 Test Item Value Reference Range Interpretation Comments TOTAL PROTEIN (BEAKER) (test code = 5.3 gm/dL 6.0-8.3 L 770) ALBUMIN (BEAKER) (test code = 1145) 2.4 g/dL 3.5-5.0 L BILIRUBIN TOTAL (BEAKER) (test code 1.5 mg/dL 0.2-1.2 H = 377) BILIRUBIN DIRECT (BEAKER) (test 1.0 mg/dL 0.1-0.5 H code = 706) ALKALINE PHOSPHATASE (BEAKER) (test 85 U/L 40-150 code = 346) AST (SGOT) ([facility]) (test code = 364 U/L 5-34 H 353) ALT (SGPT) ([facility]) (test code = 779 U/L 6-55 H 347) [id number] 06:00:00 Test Item Value Reference Range Interpretation Comments FIBRINOGEN LEVEL ([facility]) (test 390 mg/dl 225-434 code = 658) [id number] 06:00:00 Test Item Value Reference Range Interpretation Comments PARTIAL THROMBOPLASTIN TIME 40.2 seconds 22.5-36.0 H (AKER) (test code = 760) PROTHROMBIN [id number] 05:59:00 Test Item Value Reference Range Interpretation Comments PROTIME (ILIANA) (test code = 14.6 seconds 11.7-14.7 759) INR ([facility]) (test code = 370) 1.2 <=5.9 RECOMMENDED COUMADIN/WARFARIN INR THERAPY RANGESSTANDARD DOSE: 2.0 - 3.0 Includes: PROPHYLAXIS for venous thrombosis, systemic embolization; TREATMENT for venous thrombosis and/or pulmonary embolus.HIGH RISK: Target INR is 2.5-3.5 for patients with mechanical heart valves.POCT-GLUCOSE [id number] 21:46:00 Test Item Value Reference Range Interpretation Comments POC-GLUCOSE METER 153 mg/dL 70-110 H TESTED AT [place] [address] ([facility]) ([facility] = [facility] 1538) [address] POCT-GLUCOSE [id number] 18:47:00 Test Item Value Reference Range Interpretation Comments POC-GLUCOSE METER 181 mg/dL 70-110 H TESTED AT [place] [address] ([facility]) (test code = [place] [facility] 1538) [address] POCT-GLUCOSE [id number] 12:40:00 Test Item Value Reference Range Interpretation Comments POC-GLUCOSE METER 178 mg/dL 70-110 H TESTED AT [place] [address] ([facility]) (test code = [facility] Eduin [facility] 1538) [address] POCT-GLUCOSE [id number] 07:51:00 Test Item Value Reference Range Interpretation Comments POC-GLUCOSE METER 166 mg/dL 70-110 H TESTED AT [place] [address] ([facility]) (test code = [place] 1538) [address] COMPREHENSIVE METABOLIC [id number] 03:26:00 Test Item Value Reference Range Interpretation [...] S NOT APPLICABLE FOR DIALYSIS PATIEN TS. [id number] 03:22:00 Test Item Value Reference Range Interpretation Comments MAGNESIUM (BEAKER) (test code = 1.4 mg/dL 1.6-2.6 L 627) HEPATIC FUNCTION [id number] 03:22:00 Test Item Value Reference Range Interpretation [...] code = 1009 U/L 6-55 H 347) [id number] 03:12:00 Test Item Value Reference Range Interpretation Comments AMMONIA (BEAKER) (test code = 348) 29 mol/L 18-72 [id number] 03:10:00 Test Item Value Reference Range Interpretation Comments PARTIAL THROMBOPLASTIN TIME 42.3 seconds 22.5-36.0 H (BEAKER) (test code = 760) PROTHROMBIN [id number] 03:09:00 Test Item Value Reference Range Interpretation Comments PROTIME (BEAKER) (test code = 16.4 seconds 11.7-14.7 H 759) INR (BEAKER) (test code = 370) 1.3 <=5.9 RECOMMENDED COUMADIN/WARFARIN INR THERAPY RANGESSTANDARD DOSE: 2.0 - 3.0 Includes: PROPHYLAXIS for venous thrombosis, systemic embolization; TREATMENT for venous thrombosis and/or pulmonary embolus.HIGH RISK: Target INR is 2.5-3.5 for patients with mechanical heart valves.[id number] 03:09:00 Test Item Value Reference Range Interpretation Comments FIBRINOGEN LEVEL (BEAKER) (test 413 mg/dl 225-434 code = 658) CBC W/PLT COUNT & AUTO [id number] 03:09:00 Test Item Value Reference Range Interpretation [...] L 0.00-0.20 (test code = 417) 0.00POCT-GLUCOSE [id number] 22:33:00 Test Item Value Reference Range Interpretation Comments POC-GLUCOSE METER 230 mg/dL 70-[address] [facility] 67[address] (BEAKER) (test code = [place] 1538) [address] POCT-GLUCOSE [id number] 18:17:00 Test Item Value Reference Range Interpretation Comments POC-GLUCOSE METER 222 mg/dL 70-[address] [facility] 67[address] (BEAKER) (test code = [place] 1538) [address] COMPREHENSIVE METABOLIC [id number] 16:59:00 Test Item Value Reference Range Interpretation [...] PATIEN TS. PERIPHERAL BLOOD SMEAR - PATHOLOGIST [id number] 15:30:00 Test Item Value Reference Range Interpretation Comments RBC MORPHOLOGY Polychromasia (BEAKER) (test code = 2846) RBC MORPHOLOGY Anisocytosis (BEAKER) (test code = 62598) PERIPHERAL SMR REVIEW Cell counts confirmed (BEAKER) (test code = 8903) [id number] Josefina Lara M.D. (BEAKER) (test code = (electronic signature) 3929) PROTHROMBIN [id number] 15:12:00 Test Item Value Reference Range Interpretation Comments PROTIME ([facility]) (test code = 16.6 seconds 11.7-14.7 H 759) INR ([employer]) (test code = 370) 1.4 <=5.9 RECOMMENDED COUMADIN/WARFARIN INR THERAPY RANGESSTANDARD DOSE: 2.0 - 3.0 Includes: PROPHYLAXIS for venous thrombosis, systemic embolization; TREATMENT for venous thrombosis and/or pulmonary embolus.HIGH RISK: Target INR is 2.5-3.5 for patients with mechanical heart valves.ANTI-NUCLEAR ANTIBODY (IVETTE)2017-01-04 14:32:00 Test Item Value Reference Range Interpretation Comments ANTI-NUCLEAR ANTIBODY (IVETTE) ([employer]) Negative Negative (test code = 418) POCT-GLUCOSE [id number] 12:47:00 Test Item Value Reference Range Interpretation Comments POC-GLUCOSE METER 212 mg/dL 70-[address] [facility] [address] ([employer]) (test code = [place] 1538) [address] [id number] 12:34:00 Test Item Value Reference Range Interpretation Comments RPR SCREEN ([employer]) (test code = Nonreactive Nonreactive 420) CLOSTRIDIUM DIFFICILE TOXIN [id number] 10:12:00 Test Item Value Reference Range Interpretation Comments CLOSTRIDIUM DIFFICILE TOXIN, PCR Not Detected Not Detected ([employer]) (test code = 1525) This qualitative real-time [...] Reference Range Change-Adult onlyNew: 60.0-150.0 Previous: 50.0-150.0POCT-GLUCOSE [id number] 06:40:00 Test Item Value Reference Range Interpretation Comments POC-GLUCOSE METER 167 mg/dL 70-[address] [facility] (test code = [place] 1538) [address] COMPREHENSIVE METABOLIC [id number] 04:08:00 Test Item Value Reference Range Interpretation [...] ESTIM ATED GFR. Specimen slightly ictericHEPATIC FUNCTION [id number] 04:06:00 Test Item Value Reference Range Interpretation [...] 1091 U/L 6-55 H 347) Specimen slightly [id number] 04:01:00 Test Item Value Reference Range Interpretation Comments FIBRINOGEN LEVEL (BEAKER) (test 379 mg/dl 225-434 code = 658) [id number] 04:01:00 Test Item Value Reference Range Interpretation Comments PARTIAL THROMBOPLASTIN TIME 40.7 seconds 22.5-36.0 H (BEAKER) (test code = 760) PROTHROMBIN [id number] 04:00:00 Test Item Value Reference Range Interpretation [...] mechanical heart valves.CBC W/PLT COUNT & AUTO [id number] 03:56:00 Test Item Value Reference Range Interpretation [...] L 0.00-0.20 (test code = 417) 0.00POCT-GLUCOSE [id number] 00:19:00 Test Item Value Reference Range Interpretation Comments POC-GLUCOSE METER 159 mg/dL 70-[address] [facility] (test code = [place] 1538) [address] POCT-GLUCOSE [id number] 18:56:00 Test Item Value Reference Range Interpretation Comments POC-GLUCOSE METER 192 mg/dL 70-[address] [facility] [address] ([facility]) (test code = [facility] 1538) [address] COMPREHENSIVE METABOLIC [id number] 16:55:00 Test Item Value Reference Range Interpretation [...] CALCULATE ESTIM ATED GFR. Specimen slightly ictericPROTHROMBIN [id number] 16:37:00 Test Item Value Reference Range Interpretation Comments PROTIME (BEAKER) (test code = 20.9 seconds 11.7-14.7 H 759) INR (BEAKER) (test code = 370) 1.8 <=5.9 RECOMMENDED COUMADIN/WARFARIN INR THERAPY RANGESSTANDARD DOSE: 2.0 - 3.0 Includes: PROPHYLAXIS for venous thrombosis, systemic embolization; TREATMENT for venous thrombosis and/or pulmonary embolus.HIGH RISK: Target INR is 2.5-3.5 for patients with mechanical heart valves.HEPATITIS B SURFACE [id number] 14:05:00 Test Item Value Reference Range Interpretation Comments HEPATITIS B SURFACE ANTIBODY < mIU/mL <8.0 (BEAKER) (test code = 647) HEPATITIS B CORE ANTIBODY, [id number] 13:43:00 Test Item Value Reference Range Interpretation Comments HEPATITIS B CORE TOTAL ANTIBODY Nonreactive Nonreactive (BEAKER) (test code = 497) BLOOD GAS, [id number] 13:35:00 Test Item Value Reference Range Interpretation [...] code = 1819) 28.0 % URINALYSIS W/ [id number] 13:16:00 Test Item Value Reference Range Interpretation [...] 1584) SOURCE(BEAKER) (test code = Urine, [place] 0895) VITAMIN D, 09-[id number] 13:14:00 Test Item Value Reference Range Interpretation Comments VITAMIN D 25-OH (BEAKER) (test code = < ng/mL 13.0-47.8 L 2764) ALPHA FETOPROTEIN (AFP), TUMOR [id number] 13:06:00 Test Item Value Reference Range Interpretation Comments ALPHA-FETOPROTEIN (BEAKER) (test code < ng/mL <10.0 = 1094) Effective 05/08/2014: Reference Range ChangeNew: <10.0 Previous: 0.0-8.0 HEMOGLOBIN [id number] 13:05:00 Test Item Value Reference Range Interpretation Comments HEMOGLOBIN A1C (BEAKER) (test code = 7.6 % 4.3-6.1 H 368) CARCINOEMBRYONIC ANTIGEN (CEA)2017-01-03 12:59:00 Test Item Value Reference Range Interpretation Comments CARCINOEMBRYONIC ANTIGEN (BEAKER) 2.0 ng/mL 0.0-5.0 (test code = 685) [id number] 12:59:00 Test Item Value Reference Range Interpretation Comments FERRITIN (BEAKER) (test code = 1841 ng/mL 5-275 H 361) Effective 05/08/2014: Reference Range ChangeNew: Male 5-275 Previous: Male 22- 322 Female 5-275 Female [id number] 12:58:00 Test Item Value Reference Range Interpretation Comments T4 TOTAL (BEAKER) (test code = 895) 4.5 ug/dL 4.9-11.7 L [id number] 12:58:00 Test Item Value Reference Range Interpretation Comments THYROID STIMULATING HORMONE 1.79 uIU/mL 0.35-4.94 (BEAKER) (test code = 772) [id number] 12:58:00 Test Item Value Reference Range Interpretation Comments T3 TOTAL (BEAKER) (test code = 656) 34 ng/dL 48-159 L Effective 05/08/2014: Reference Range ChangeNew: 48-159 Previous: 60-181CALCIUM, [id number] 12:47:00 Test Item Value Reference Range Interpretation Comments CALCIUM IONIZED (BEAKER) (test 1.05 mmol/L 1.12-1.27 L code = 698) PH, BLOOD (BEAKER) (test code = 7.43 1810) [id number] 12:42:00 Test Item Value Reference Range Interpretation [...] % 20-55 (test code = 2590) URIC [id number] 12:40:00 Test Item Value Reference Range Interpretation Comments URIC ACID (BEAKER) (test code = 16.0 mg/dL 2.6-7.2 H 773) Specimen slightly ictericLIPID [id number] 12:40:00 Test Item Value Reference Range Interpretation [...] 160-189 Very High >=190 Specimen slightly ictericBILIRUBIN, [id number] 12:40:00 Test Item Value Reference Range Interpretation Comments BILIRUBIN DIRECT (BEAKER) (test 2.4 mg/dL 0.1-0.5 H code = 706) GAMMA GLUTAMYL TRANSFERASE (GGT)2017-01-03 12:40:00 Test Item Value Reference Range Interpretation Comments GAMMA GLUTAMYL TRANSFERASE (BEAKER) 53 U/L 9-64 (test code = 364) Specimen slightly [id number] 12:39:00 Test Item Value Reference Range Interpretation Comments ETHANOL (BEAKER) (test code = 400) < mg/dL <=10 SCREEN, [id number] 12:36:00 Test Item Value Reference Range Interpretation Comments TEST URINE (BEAKER) (test Negative code = 583) POCT-GLUCOSE [id number] 12:34:00 Test Item Value Reference Range Interpretation Comments POC-GLUCOSE METER 189 mg/dL 70-[address] [facility] [address] (BEAKER) (test code = [place] 1538) [address] HIV-1 ANTIGEN WITH HIV-1/2 [id number] 11:58:00 Test Item Value Reference Range Interpretation Comments HIV-1 ANTIGEN WITH HIV 1\\T\\2 Nonreactive Nonreactive ANTIBODY (2) (BEAKER) (test code = 2586) TROPONIN [id number] 09:44:00 Test Item Value Reference Range Interpretation [...] 0.0-4.9CK-MB Reference Range:<6.7 Normal6.7-10.0 Borderline>10.0 Abnormal ACETAMINOPHEN [id number] 08:31:00 Test Item Value Reference Range Interpretation Comments ACETAMINOPHEN LEVEL (BEAKER) (test < ug/mL 10.0-30.0 L code = 344) TROPONIN [id number] 05:53:00 Test Item Value Reference Range Interpretation [...] acute neurological disease, and persistent tachyarrhythmia.BASIC METABOLIC [id number] 05:53:00 Test Item Value Reference Range Interpretation [...] TO CALCULA TE ESTIMATED GFR. Specimen slightly [id number] 05:52:00 Test Item Value Reference Range Interpretation Comments PHOSPHORUS (BEAKER) (test code = 5.7 mg/dL 2.3-4.7 H 604) HEPATIC FUNCTION [id number] 05:52:00 Test Item Value Reference Range Interpretation [...] Specimen slightly ictericCREATINE KINASE (CK), TOTAL AND [id number] 05:52:00 Test Item Value Reference Range Interpretation Comments CREATINE KINASE TOTAL (BEAKER) 341 U/L 29-200 H (test code = 380) CREATINE KINASE-MB (BEAKER) (test 5.4 ng/mL 0.0-6.6 code = 750) CREATINE KINASE-MB INDEX (BEAKER) 1.6 % (test code = 395) Effective 05/08/2014: CK-MB Reference Range ChangeNew: 0.0-6.6 Previous: 0.0-4.9CK-MB Reference Range:<6.7 Normal6.7-10.0 Borderline>10.0 Abnormal CBC W/PLT COUNT & AUTO [id number] 05:48:00 Test Item Value Reference Range Interpretation [...] K/ L 0.00-0.20 (test code = 417) [id number] 05:09:00 Test Item Value Reference Range Interpretation Comments FIBRINOGEN LEVEL (BEAKER) (test 427 mg/dl 225-434 code = 658) [id number] 05:09:00 Test Item Value Reference Range Interpretation Comments PARTIAL THROMBOPLASTIN TIME 36.2 seconds 22.5-36.0 H (BEAKER) (test code = 760) PROTHROMBIN [id number] 05:08:00 Test Item Value Reference Range Interpretation Comments PROTIME (BEAKER) (test code = 22.8 seconds 11.7-14.7 H 759) INR (BEAKER) (test code = 370) 2.0 <=5.9 RECOMMENDED COUMADIN/WARFARIN INR THERAPY RANGESSTANDARD DOSE: 2.0 - 3.0 Includes: PROPHYLAXIS for venous thrombosis, systemic embolization; TREATMENT for venous thrombosis and/or pulmonary embolus.HIGH RISK: Target INR is 2.5-3.5 for patients with mechanical heart valves.HEPATITIS PANEL, [id number] 03:40:00 Test Item Value Reference Range Interpretation Comments HEPATITIS A IGM ANTIBODY (BEAKER) Nonreactive Nonreactive (test code = 498) HEPATITIS B CORE IGM ANTIBODY Nonreactive Nonreactive (BEAKER) (test code = 645) HEPATITIS C ANTIBODY (BEAKER) Nonreactive Nonreactive (test code = 367) HEPATITIS B SURFACE ANTIGEN (2) Nonreactive Nonreactive (BEAKER) (test code = 2585) CREATININE, RANDOM [id number] 03:18:00 Test Item Value Reference Range Interpretation Comments CREATININE URINE (BEAKER) (test 118.7 mg/dL code = 375) Reference Range: No NormalsSODIUM, RANDOM [id number] 03:18:00 Test Item Value Reference Range Interpretation Comments SODIUM URINE (BEAKER) (test code = 60 meq/L 243) Reference Range: No NormalsUREA NITROGEN, RANDOM [id number] 03:18:00 Test Item Value Reference Range Interpretation Comments UREA NITROGEN URINE (BEAKER) (test 303 mg/dL code = 538) Reference Range: No XsrosbnTTCOZPE0820-68-95 03:07:00 Test Item Value Reference Range Interpretation Comments AMMONIA (BEAKER) (test code = 348) 48 mol/L 18-72 [id number] 02:57:00 Test Item Value Reference Range Interpretation [...] within 95-100% range. URINALYSIS W/ REFLEX URINE [id number] 02:53:00 Test Item Value Reference Range Interpretation [...] = 514) SOURCE(BEAKER) (test code = 2795) [id number] 02:49:00 Test Item Value Reference Range Interpretation Comments PARTIAL THROMBOPLASTIN TIME 39.4 seconds 22.5-36.0 H (BEAKER) (test code = 760) PROTHROMBIN TIME/[id number] 02:48:00 Test Item Value Reference Range Interpretation Comments PROTIME (BEAKER) (test code = 22.0 seconds 11.7-14.7 H 759) INR (BEAKER) (test code = 370) 1.9 <=5.9 RECOMMENDED COUMADIN/WARFARIN INR THERAPY RANGESSTANDARD DOSE: 2.0 - 3.0 Includes: PROPHYLAXIS for venous thrombosis, systemic embolization; TREATMENT for venous thrombosis and/or pulmonary embolus.HIGH RISK: Target INR is 2.5-3.5 for patients with mechanical heart valves.[id number] 02:48:00 Test Item Value Reference Range Interpretation Comments FIBRINOGEN LEVEL (BEAKER) (test 421 mg/dl 225-434 code = 658) BLOOD GAS, [id number] 02:43:00 Test Item Value Reference Range Interpretation [...] 21.0 % CBC W/PLT COUNT & AUTO [id number] 02:43:00 Test Item Value Reference Range Interpretation [...] code = 417) 0.00LACTIC ACID, VENOUS, WHOLE [id number] 02:35:00 Test Item Value Reference Range Interpretation Comments LACTATE BLOOD VENOUS (2) (BEAKER) 0.8 mmol/L 0.5-2.2 (test code = 2872) Effective 10/23/2015: Units/Reference Range ChangeNew: 0.5-2.2 mmol/L Previous: 5- 20 mg/dLSpecimen slightly kxclvoyPMTJOHHSZRDN1914-89-52 11:32:00 Test Item Value Reference Range Interpretation Comments AGAP (test code = AGAP) 14.6 10.0-20.0 [facility]WoenvxaZWWYUIZROYWE7984-80-96 11:32:00 Test Item Value Reference Range Interpretation Comments eGFR (test code = eGFR) 33 [facility] HospitalRhhhjbnAWRGSHLZELTP3991-41-77 11:32:00 Test Item Value Reference Range Interpretation Comments Calcium Lvl (test code = Calcium Lvl) 8.3 8.5-10.5 [facility] HospitalLgemrtzVHKDBAWUHGGR9731-25-85 11:32:00 Test Item Value Reference Range Interpretation Comments Glucose Lvl (test code = Glucose Lvl) 81 70-99 [facility] HospitalZlxgbthHAOIDWHVLMIX4902-16-07 11:32:00 Test Item Value Reference Range Interpretation Comments Creatinine Lvl (test code = Creatinine 1.95 0.50-1.40 Lvl) [facility] HospitalKtxpinhYTSFJKXKRRVN5456-42-97 11:32:00 Test Item Value Reference Range Interpretation Comments BUN (test code = BUN) 55 7-22 [facility] HospitalRcmayurHKKSQNBAYZIQ4877-09-52 11:32:00 Test Item Value Reference Range Interpretation Comments CO2 (test code = CO2) 19 24-32 [facility] HospitalLjmoqpoYZYLKMWLIDIJ1290-42-95 11:32:00 Test Item Value Reference Range Interpretation Comments Chloride Lvl (test code = Chloride Lvl) 110 95-109 [facility] HospitalYmeseohGFRTBLFAPFAI0202-67-30 11:32:00 Test Item Value Reference Range Interpretation Comments Sodium Lvl (test code = Sodium Lvl) 139 135-145 [facility] HospitalLchwluiLOCDNLEOTPTT4706-13-38 11:32:00 Test Item Value Reference Range Interpretation Comments Potassium Lvl (test code = Potassium 4.6 3.5-5.1 Lvl) [facility]wayYbqufibEIQBVUUVZI5874-66-40 11:32:00 Test Item Value Reference Range Interpretation Comments Lymphocytes (test code = Lymphocytes) 30.4 20.0-40.0 [facility] LakewaySxmxsdbTIRSVKLOKF0027-17-48 11:32:00 Test Item Value Reference Range Interpretation Comments Eosinophils (test code = 4.5 See_Comment [A utomated message] The Eosinophils) system which ge nerated this result tra nsmitted reference range : <=4.0. The reference r leo was not used to int erpret this result as normal/abnormal . [facility] LakewayCkgasgfACVZTSZCNT7259-17-86 11:32:00 Test Item Value Reference Range Interpretation Comments Monocytes (test code = Monocytes) 13.7 2.0-12.0 [facility] LakewayDiyajyoQCHZJEHWCM0831-54-70 11:32:00 Test Item Value Reference Range Interpretation Comments Segs-Bands # (test code = Segs-Bands #) 2.6 1.5-8.1 [facility] LakewayQemvzeuWWRGYBTDQO1666-44-11 11:32:00 Test Item Value Reference Range Interpretation Comments Basophils (test code = 0.7 See_Comment [Aut omated message] The Basophils) system which ge nerated this result tra nsmitted reference range : <=1.0. The reference r leo was not used to int erpret this result as normal/abnormal . [facility] LakewayKjpwmfuLYEVNZDYUT7045-48-34 11:32:00 Test Item Value Reference Range Interpretation Comments Monocytes # (test code 0.7 See_Comment [Aut omated message] The = Monocytes #) system which generated this result tra nsmitted reference range : <=0.8. The reference r leo was not used to int erpret this result as normal/abnormal . [facility] LakewayYbuocffCTUROIYQHX3943-38-99 11:32:00 Test Item Value Reference Range Interpretation Comments Lymphocytes # (test code = Lymphocytes 1.6 1.0-5.5 #) [facility] LakewayIhblszxPMOXBANKZO5688-78-62 11:32:00 Test Item Value Reference Range Interpretation Comments Eosinophils # (test code 0.2 See_Comment [A utomated message] The = Eosinophils #) system ic h generated this result tra nsmitted reference range : <=0.5. The reference r leo was not used to int erpret this result as normal/abnormal . [facility] LakewayOvfnuysVXPKHLRSQQ0543-84-34 11:32:00 Test Item Value Reference Range Interpretation Comments Segs (test code = Segs) 50.7 45.0-75.0 [facility] LakewayQoyxffkGGYOTCHKDV3650-50-11 11:32:00 Test Item Value Reference Range Interpretation [...] iron deficiency anemia, and renal disease. CPT: 55828 [facility] LakewayYxztutaXHMBXIYGHX6999-79-74 11:32:00 Test Item Value Reference Range Interpretation Comments Hct (test code = Hct) 28.1 36.0-48.0 [facility] LakewayXhlybvxOTTHHOIHNP4779-95-53 11:32:00 Test Item Value Reference Range Interpretation Comments RBC (test code = RBC) 3.39 4.20-5.40 [facility] LakewayVgimxeyZBLMXYMEIZ8812-07-26 11:32:00 Test Item Value Reference Range Interpretation Comments Hgb (test code = Hgb) 8.9 12.0-16.0 [facility] LakewayLkvyjklXFKHRFNRLC2064-39-92 11:32:00 Test Item Value Reference Range Interpretation Comments WBC (test code = WBC) 5.1 3.7-10.4 [facility] LakewayJlnbbwkPEYENEIJFR7173-37-10 11:32:00 Test Item Value Reference Range Interpretation Comments MPV (test code = MPV) 11.3 7.4-10.4 [facility] LakewayNqnkpgmZLJYLGCFCE1669-75-20 11:32:00 Test Item Value Reference Range Interpretation Comments Platelet (test code = Platelet) 118 133-450 [facility] LakewaySapavddBGMFBAJBUB9586-73-63 11:32:00 Test Item Value Reference Range Interpretation Comments MCHC (test code = MCHC) 31.8 32.0-36.0 [facility] LakewayAclfyhbQMGOOGLKYP0214-77-87 11:32:00 Test Item Value Reference Range Interpretation Comments RDW (test code = RDW) 18.0 11.5-14.5 [facility] LakewayQmilgexAFDZRJDTWL5347-50-78 11:32:00 Test Item Value Reference Range Interpretation Comments MCV (test code = MCV) 83.0 80.0-98.0 [facility] LakewayRrhuiluIGVDTKEDRI2035-47-45 11:32:00 Test Item Value Reference Range Interpretation Comments MCH (test code = MCH) 26.4 pg 27.0-31.0 [facility]NdthmhdPXWERKYYLI7429-75-77 11:32:00 Test Item Value Reference Range Interpretation Comments C3 Complement (test code = C3 137 88-201 Complement) [facility] HospitalRcqmfkaETAIAGEFAP0147-60-07 11:32:00 Test Item Value Reference Range Interpretation Comments HIV. (test code = Negative *NA*(07/30/16 HIV.) 5:32 AM) [facility] LakewayUhsbftvIXRYRRRRCS7889-51-62 11:05:00 Test Item Value Reference Range Interpretation [...] iron deficiency anemia, and renal disease. CPT: 54628 [facility] HospitalKzcfqriXJPZXSZSUN4037-96-24 11:05:00 Test Item Value Reference Range Interpretation Comments HIV. (test code = Negative *NA*(07/29/16 HIV.) 5:05 AM) [facility] HospitalDgydzhqNVJZOCGXLM0528-76-75 11:05:00 Test Item Value Reference Range Interpretation Comments C3 Complement (test code = C3 92 88-201 Complement) [facility]2017-02-07 15:50:00 Test Item Value Reference Range Interpretation Comments eGFR (test code = eGFR) 25 [facility]2017-02-07 15:50:00 Test Item Value Reference Range Interpretation Comments BUN (test code = BUN) 55 7-22 [facility]2017-02-07 15:50:00 Test Item Value Reference Range Interpretation Comments CO2 (test code = CO2) 23 24-32 [facility]2017-02-07 15:50:00 Test Item Value Reference Range Interpretation Comments Chloride Lvl (test code = Chloride Lvl) 109 95-109 [facility]2017-02-07 15:50:00 Test Item Value Reference Range Interpretation Comments Glucose Lvl (test code = Glucose Lvl) 101 70-99 [facility]2017-02-07 15:50:00 Test Item Value Reference Range Interpretation Comments Potassium Lvl (test code = Potassium 4.0 3.5-5.1 Lvl) [facility]2017-02-07 15:50:00 Test Item Value Reference Range Interpretation Comments Sodium Lvl (test code = Sodium Lvl) 141 135-145 [facility]2017-02-07 15:50:00 Test Item Value Reference Range Interpretation Comments AGAP (test code = AGAP) 13.0 10.0-20.0 [facility]2017-02-07 15:50:00 Test Item Value Reference Range Interpretation Comments Calcium Lvl (test code = Calcium Lvl) 7.7 8.5-10.5 [facility]2017-02-07 15:50:00 Test Item Value Reference Range Interpretation Comments Creatinine Lvl (test code = Creatinine 2.49 0.50-1.40 Lvl) [facility] LakewayUusbiqdWVCKHZDWTK1198-90-93 15:50:00 Test Item Value Reference Range Interpretation Comments PT (test code = PT) 14.8 s 12.0-14.7 [facility] LakewayVhwueltCOXXNPKTLG5765-32-94 15:50:00 Test Item Value Reference Range Interpretation Comments PTT (test code = PTT) 40.8 s 22.9-35.8 [facility] LakewayBvbgpbcWIZSBAFWBV0624-28-30 15:50:00 Test Item Value Reference Range Interpretation Comments INR (test code = INR) 1.14 0.85-1.17 [facility]LnvayokECXOKAMAHS8625-05-58 15:50:00 Test Item Value Reference Range Interpretation Comments C3 Complement (test code = C3 94 88-201 Complement) [facility] LakewayDdmiviwQWSVAFATAA3993-17-91 10:35:00 Test Item Value Reference Range Interpretation Comments Lymphocytes # (test code = Lymphocytes 1.7 1.0-5.5 #) [facility] LakewayZmjobhcOURZDMXDIX5376-31-16 10:35:00 Test Item Value Reference Range Interpretation Comments Segs-Bands # (test code = Segs-Bands #) 2.7 1.5-8.1 [facility] LakewayGutrensLDAMGVGZHF6952-93-92 10:35:00 Test Item Value Reference Range Interpretation Comments Eosinophils # (test code 0.1 See_Comment [A utomated message] The = Eosinophils #) system whic h generated this result tra nsmitted reference range : <=0.5. The reference r leo was not used to int erpret this result as normal/abnormal . [facility] LakewayRskqkdnKLMTDHRGOB7880-23-44 10:35:00 Test Item Value Reference Range Interpretation Comments Monocytes # (test code 0.7 See_Comment [Aut omated message] The = Monocytes #) system which generated this result tra nsmitted reference range : <=0.8. The reference r leo was not used to int erpret this result as normal/abnormal . [facility] LakewayIgcxfngDCAPOWCHJB5658-92-04 10:35:00 Test Item Value Reference Range Interpretation Comments Segs (test code = Segs) 51.3 45.0-75.0 [facility] LakewayYnnazffLTOBSYOHJU8454-03-87 10:35:00 Test Item Value Reference Range Interpretation Comments Lymphocytes (test code = Lymphocytes) 31.6 20.0-40.0 [facility] LakewayIbcpqqbSWGPMWHVKL1819-69-99 10:35:00 Test Item Value Reference Range Interpretation Comments Monocytes (test code = Monocytes) 14.1 2.0-12.0 [facility] LakewayYntexybGTHZVNWTSI5586-30-19 10:35:00 Test Item Value Reference Range Interpretation Comments Eosinophils (test code = 2.6 See_Comment [A utomated message] The Eosinophils) system which ge nerated this result tra nsmitted reference range : <=4.0. The reference r leo was not used to int erpret this result as normal/abnormal . [facility] LakewayNtzvywkKPLHFFVWET9986-16-94 10:35:00 Test Item Value Reference Range Interpretation Comments Basophils (test code = 0.4 See_Comment [Aut omated message] The Basophils) system which ge nerated this result tra nsmitted reference range : <=1.0. The reference r leo was not used to int erpret this result as normal/abnormal . [facility] LakewayMlejhjqINMMJAGHPP1919-99-24 10:35:00 Test Item Value Reference Range Interpretation Comments PB Smear Path Peripheral blood smear shows (test code = PB hypochromic normocytic Smear Path) anemia with anisopoikilocytsosis, no increase in schistocytes, slight polychromasia, a few estella cells, moderate thrombocytopenia. Impression: (1) no evidence of microangiopathic hemolysis, (2) RBC morphology is suggestive of anemia of chronic disease or iron deficiency anemia, and renal disease. CPT: 56955 [facility] LakewayLexkkuaJGGKYIEQHW4145-40-06 10:35:00 Test Item Value Reference Range Interpretation Comments Hct (test code = Hct) 29.3 36.0-48.0 [facility] LakewayOvllalkDUMOOZVBMJ6318-75-90 10:35:00 Test Item Value Reference Range Interpretation Comments Hgb (test code = Hgb) 9.2 12.0-16.0 [facility] LakewayIdmmbfcFBZRKYPSYP8987-15-99 10:35:00 Test Item Value Reference Range Interpretation Comments RBC (test code = RBC) 3.54 4.20-5.40 [facility] LakewayAgkvblsBLYDSPSILH7905-91-36 10:35:00 Test Item Value Reference Range Interpretation Comments WBC (test code = WBC) 5.3 3.7-10.4 [facility] LakewayLenggfrVGSCANILZD4348-71-03 10:35:00 Test Item Value Reference Range Interpretation Comments Platelet (test code = Platelet) 87 133-450 [facility] LakewayKhpayqmGKPZTOUXBC0008-73-30 10:35:00 Test Item Value Reference Range Interpretation Comments MCHC (test code = MCHC) 31.4 32.0-36.0 [facility] LakewayTdwbkllIPUCYPTIUM2250-95-64 10:35:00 Test Item Value Reference Range Interpretation Comments RDW (test code = RDW) 17.9 11.5-14.5 [facility] LakewayWihzoqvCUMOQBPKGX4755-23-12 10:35:00 Test Item Value Reference Range Interpretation Comments MPV (test code = MPV) 10.9 7.4-10.4 [facility] LakewayCmwlyslQMNJKWRGWC8873-44-60 10:35:00 Test Item Value Reference Range Interpretation Comments MCH (test code = MCH) 26.0 pg 27.0-31.0 [facility] LakewayLwmfludHZWUEINXLX2199-72-79 10:35:00 Test Item Value Reference Range Interpretation Comments MCV (test code = MCV) 82.8 80.0-98.0 [facility] HospitalZfppbkxYCVESONPLS5937-56-06 10:35:00 Test Item Value Reference Range Interpretation Comments HIV. (test code = Negative *NA*(07/28/16 HIV.) 4:35 AM) [facility] CenterCARDIAC TRXZJTS2050-01-44 10:22:00 Test Item Value Reference Range Interpretation Comments Total CK (test code = Total CK) 190 12-191 [facility] PSQOI9809-91-31 10:22:00 Test Item Value Reference Range Interpretation Comments Calcium Lvl (test code = Calcium Lvl) 7.8 8.5-10.5 [facility]2017-02-06 10:22:00 Test Item Value Reference Range Interpretation Comments CO2 (test code = CO2) 21 24-32 [facility]2017-02-06 10:22:00 Test Item Value Reference Range Interpretation Comments Sodium Lvl (test code = Sodium Lvl) 140 135-145 [facility]2017-02-06 10:22:00 Test Item Value Reference Range Interpretation Comments Potassium Lvl (test code = Potassium 3.8 3.5-5.1 Lvl) [facility]2017-02-06 10:22:00 Test Item Value Reference Range Interpretation Comments Chloride Lvl (test code = Chloride Lvl) 106 95-109 [facility]2017-02-06 10:22:00 Test Item Value Reference Range Interpretation Comments Bili Total (test code = Bili Total) 0.4 0.2-1.3 [facility]2017-02-06 10:22:00 Test Item Value Reference Range Interpretation Comments Alk Phos (test code = Alk Phos) 74 39-136 [facility]2017-02-06 10:22:00 Test Item Value Reference Range Interpretation Comments eGFR (test code = eGFR) 19 [facility]2017-02-06 10:22:00 Test Item Value Reference Range Interpretation Comments Total Protein (test code = Total 5.2 6.4-8.4 Protein) [facility]2017-02-06 10:22:00 Test Item Value Reference Range Interpretation Comments ALT (test code = ALT) 822 See_Comment [Auto mated message] The system which ge nerated this result transmit rohit reference range : <=65. The reference range was not used to interpr et this result as reji l/abnormal. [facility] CenterTango Card VNXQZ3319-51-37 10:22:00 Test Item Value Reference Range Interpretation Comments AST (test code = AST) 205 See_Comment [Auto mated message] The system which ge nerated this result transmit rohit reference range : <=37. The reference range was not used to interpr et this result as reji l/abnormal. [facility]2017-02-06 10:22:00 Test Item Value Reference Range Interpretation Comments Albumin Lvl (test code = Albumin Lvl) 1.8 3.5-5.0 [facility]2017-02-06 10:22:00 Test Item Value Reference Range Interpretation Comments BUN (test code = BUN) 54 7-22 [facility]2017-02-06 10:22:00 Test Item Value Reference Range Interpretation Comments Glucose Lvl (test code = Glucose Lvl) 143 70-99 [facility]2017-02-06 10:22:00 Test Item Value Reference Range Interpretation Comments Creatinine Lvl (test code = Creatinine 3.11 0.50-1.40 Lvl) [facility]2017-02-06 10:22:00 Test Item Value Reference Range Interpretation Comments B/C Ratio (test code = B/C Ratio) 17 6-25 [facility]2017-02-06 10:22:00 Test Item Value Reference Range Interpretation Comments AGAP (test code = AGAP) 16.8 10.0-20.0 [facility]2017-02-06 10:22:00 Test Item Value Reference Range Interpretation Comments Globulin (test code = Globulin) 3.4 2.7-4.2 [facility]2017-02-06 10:22:00 Test Item Value Reference Range Interpretation Comments A/G Ratio (test code = A/G Ratio) 0.5 0.7-1.6 [facility]2017-02-06 10:22:00 Test Item Value Reference Range Interpretation Comments Magnesium Lvl (test code = Magnesium 2.0 1.8-2.4 Lvl) [facility]2017-02-06 10:22:00 Test Item Value Reference Range Interpretation Comments Phosphorus (test code = Phosphorus) 3.7 2.5-4.5 [facility] LakewayIytzjmiIPPCPMVVZR5594-86-62 10:22:00 Test Item Value Reference Range Interpretation Comments RDW (test code = RDW) 17.7 11.5-14.5 [facility] LakewayTvhyohuVGOEPUOVLC6995-59-00 10:22:00 Test Item Value Reference Range Interpretation Comments MCHC (test code = MCHC) 32.9 32.0-36.0 [facility] LakewayFjjyjcmHHSPRIYBIK6107-12-20 10:22:00 Test Item Value Reference Range Interpretation Comments Hct (test code = Hct) 25.4 36.0-48.0 [facility] LakewayQtetxtgTVFULGCYAG8386-81-20 10:22:00 Test Item Value Reference Range Interpretation Comments MCH (test code = MCH) 26.4 pg 27.0-31.0 [facility] LakewayRkqnqpmDPFVLRSDNM7760-56-06 10:22:00 Test Item Value Reference Range Interpretation Comments MCV (test code = MCV) 80.3 80.0-98.0 [facility] LakewayWwcuyzzNVDXJWPBZT6578-30-44 10:22:00 Test Item Value Reference Range Interpretation Comments MPV (test code = MPV) 11.4 7.4-10.4 [facility] LakewayIwxoulfHYYVRIIDOY7510-54-50 10:22:00 Test Item Value Reference Range Interpretation Comments Platelet (test code = Platelet) 74 133-450 [facility] LakewaySvkpnpaPRANMYOREQ1632-70-83 10:22:00 Test Item Value Reference Range Interpretation Comments RBC (test code = RBC) 3.16 4.20-5.40 [facility] LakewayZjvuivfPLYEDFCUSP2274-06-49 10:22:00 Test Item Value Reference Range Interpretation Comments WBC (test code = WBC) 5.3 3.7-10.4 [facility] LakewayAgrsvglFLABOWORFL0849-46-82 10:22:00 Test Item Value Reference Range Interpretation Comments Hgb (test code = Hgb) 8.4 12.0-16.0 [facility] LakewayZiyeoyvLKYGGHEFIS0079-88-57 10:22:00 Test Item Value Reference Range Interpretation Comments Monocytes (test code = Monocytes) 14.5 2.0-12.0 [facility] LakewayYwkuqszAOGXYMQPEW5377-82-10 10:22:00 Test Item Value Reference Range Interpretation Comments Lymphocytes (test code = Lymphocytes) 29.8 20.0-40.0 [facility] LakewayZquztgkGHDKYJCJMK5039-29-35 10:22:00 Test Item Value Reference Range Interpretation Comments Eosinophils # (test code 0.1 See_Comment [A utomated message] The = Eosinophils #) system whic h generated this result tra nsmitted reference range : <=0.5. The reference r leo was not used to int erpret this result as normal/abnormal . [facility] LakewayYxwuynvVJUWWMGLUV7543-46-91 10:22:00 Test Item Value Reference Range Interpretation Comments Monocytes # (test code 0.8 See_Comment [Aut omated message] The = Monocytes #) system which generated this result tra nsmitted reference range : <=0.8. The reference r leo was not used to int erpret this result as normal/abnormal . [facility] LakewayDucccuiRAFLXJQWLU9667-35-99 10:22:00 Test Item Value Reference Range Interpretation Comments Segs-Bands # (test code = Segs-Bands #) 2.9 1.5-8.1 [facility] LakewayAnxgwbbEDLSKUXYRT3042-28-43 10:22:00 Test Item Value Reference Range Interpretation Comments Lymphocytes # (test code = Lymphocytes 1.6 1.0-5.5 #) [facility] LakewayPnamqziXASZTXOLVQ1985-00-07 10:22:00 Test Item Value Reference Range Interpretation Comments Basophils (test code = 0.4 See_Comment [Aut omated message] The Basophils) system which ge nerated this result tra nsmitted reference range : <=1.0. The reference r leo was not used to int erpret this result as normal/abnormal . [facility] LakewayUjydqukXKCSYUDRJH3662-34-23 10:22:00 Test Item Value Reference Range Interpretation Comments Eosinophils (test code = 1.2 See_Comment [A utomated message] The Eosinophils) system which ge nerated this result tra nsmitted reference range : <=4.0. The reference r leo was not used to int erpret this result as normal/abnormal . [facility]wayBjwluetMEXOZXBWVH1133-32-12 10:22:00 Test Item Value Reference Range Interpretation Comments Segs (test code = Segs) 54.1 45.0-75.0 [facility] [id number] 10:22:00 Test Item Value Reference Range Interpretation Comments Hgb A1C (test code = Hgb A1C) 8.9 [facility] CenterCARDIAC [id number] 17:40:00 Test Item Value Reference Range Interpretation Comments Total CK (test code = Total CK) 344 12-191 [facility]KgbxubdYQQSDJYPBE3907-65-16 17:40:00 Test Item Value Reference Range Interpretation Comments IVETTE (test code = IVETTE) Positive *ABN*(07/26/16 11:40 AM) [facility] HospitalThlmjciRYCROHTHXO0707-82-93 17:40:00 Test Item Value Reference Range Interpretation Comments [employer]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 [facility] HospitalAltnbruYGVRPBQGNH1694-24-35 17:40:00 Test Item Value Reference Range Interpretation Comments SS-B (La) Ab (test code = SS-B (La) Ab) no gt [facility] HospitalGzksdmgOUEOMFEZZX4920-23-15 17:40:00 Test Item Value Reference Range Interpretation Comments SS-A (Ro) Ab (test code = SS-A (Ro) Ab) no gt [facility] RxqhessCODWFNGSCE5042-55-87 17:40:00 Test Item Value Reference Range Interpretation Comments DNA Ab (DS) (test Negative (07/26/16 11:40 code = DNA Ab (DS)) AM) [facility] HospitalAsxqiztOSTMOGHXEG1890-57-18 17:40:00 Test Item Value Reference Range Interpretation Comments IVETTE Titer (test code = 1:40 *ABN*(07/26/16 IVETTE Titer) 11:40 AM) [facility] [id number] 17:40:00 Test Item Value Reference Range Interpretation Comments U Sodium (test code = U Sodium) 21 [facility] HospitalItfgguzTWGELCLWIS1402-09-43 14:00:00 Test Item Value Reference Range Interpretation Comments INR (test code = INR) 1.11 0.85-1.17 [facility] HospitalJvkxnhmUCUZTACZZW5869-17-84 14:00:00 Test Item Value Reference Range Interpretation Comments PT (test code = PT) 14.5 s 12.0-14.7 [facility] HospitalDzwvikdGEWUFBCKUG2040-84-69 14:00:00 Test Item Value Reference Range Interpretation Comments Hep A IgM (test code Negative *NA*(07/26/16 = Hep A IgM) 8:00 AM) [facility] NhmoptuZUFVFIKRTF6396-43-56 14:00:00 Test Item Value Reference Range Interpretation Comments Hep B Core IgM (test Negative *NA*(07/26/16 code = Hep B Core 8:00 AM) IgM) [facility]jhud[facility]sLDSUXZXGDP2317-59-90 14:00:00 Test Item Value Reference Range Interpretation Comments Hep C Ab (test code = Negative *NA*(07/26/16 Hep C Ab) 8:00 AM) [facility] HospitalFvmhzrrHPQBRYPIJC8373-52-48 14:00:00 Test Item Value Reference Range Interpretation Comments Hep Bs Ag (test code Negative *NA*(07/26/16 = Hep Bs Ag) 8:00 AM) [facility]2017-02-05 10:42:00 Test Item Value Reference Range Interpretation Comments B/C Ratio (test code = B/C Ratio) 17 6-25 [facility]2017-02-05 10:42:00 Test Item Value Reference Range Interpretation Comments ALT (test code = ALT) 1232 See_Comment [Auto mated message] The system which ge nerated this result transmit rohit reference range : <=65. The reference range was not used to interpr et this result as reji l/abnormal. [facility]2017-02-05 10:42:00 Test Item Value Reference Range Interpretation Comments A/G Ratio (test code = A/G Ratio) 0.5 0.7-1.6 [facility]2017-02-05 10:42:00 Test Item Value Reference Range Interpretation Comments Bili Total (test code = Bili Total) 0.3 0.2-1.3 [facility]2017-02-05 10:42:00 Test Item Value Reference Range Interpretation Comments Alk Phos (test code = Alk Phos) 79 39-136 [facility]2017-02-05 10:42:00 Test Item Value Reference Range Interpretation Comments AST (test code = AST) 586 See_Comment [Auto mated message] The system which ge nerated this result transmit rohit reference range : <=37. The reference range was not used to interpr et this result as reji l/abnormal. [facility]2017-02-05 10:42:00 Test Item Value Reference Range Interpretation Comments Total Protein (test code = Total 5.5 6.4-8.4 Protein) [facility] [id number] 10:42:00 Test Item Value Reference Range Interpretation Comments Globulin (test code = Globulin) 3.7 2.7-4.2 [facility] [id number] 10:42:00 Test Item Value Reference Range Interpretation Comments Albumin Lvl (test code = Albumin Lvl) 1.8 3.5-5.0 [facility] [id number] 10:42:00 Test Item Value Reference Range Interpretation Comments Magnesium Lvl (test code = Magnesium 2.1 1.8-2.4 Lvl) [facility] CenterOrlganbWGMRZZMYYF6728-17-16 10:42:00 Test Item Value Reference Range Interpretation Comments Acanthocyte (test code = Acanthocyte) Slight [facility]wayAcuqrnzDBGDWNKYXT2967-34-65 10:42:00 Test Item Value Reference Range Interpretation Comments Rouleaux (test code = Present *ABN*(07/26/16 Rouleaux) 4:42 AM) [facility] LakewayMidstglWHRTVWKLBA1677-22-78 10:42:00 Test Item Value Reference Range Interpretation Comments Anisocyte (test code = 1+ *ABN*(07/26/16 4:42 Anisocyte) AM) [facility] LakewayGlfqdveFIREALOMHZ0476-77-63 10:42:00 Test Item Value Reference Range Interpretation Comments Basophils # (test code 0.1 See_Comment [Aut omated message] The = Basophils #) system which generated this result tra nsmitted reference range : <=0.2. The reference r leo was not used to int erpret this result as normal/abnormal . [facility] CenterGhlxxhrOUMCQCFPJX0919-53-11 10:42:00 Test Item Value Reference Range Interpretation Comments Large Plt (test code Moderate *ABN*(07/26/16 = Large Plt) 4:42 AM) [facility] CenterXnlitusXPGDVHWDDP8862-88-14 10:42:00 Test Item Value Reference Range Interpretation Comments C4 Complement (test code = C4 42 16-47 Complement) [facility] AND [id number] 16:34:00 Test Item Value Reference Range Interpretation Comments UA Sq Epi (test code = UA Sq Epi) None Seen [facility] AND [id number] 16:34:00 Test Item Value Reference Range Interpretation Comments UA Waxy Cast (test code = UA Waxy Cast) 1 [facility] AND [id number] 16:34:00 Test Item Value Reference Range Interpretation Comments UA Hyal Cast (test 4 See_Comment [Automat ed message] The code = UA Hyal Cast) system which generated this result transmit rohit reference range : <=2. The reference range was not used to interpr et this result as reji l/abnormal. [facility] AND [id number] 16:34:00 Test Item Value Reference Range Interpretation Comments UA Bacteria (test code = UA Occasional /HPF Bacteria) [facility] AND [id number] 16:34:00 Test Item Value Reference Range Interpretation Comments UA Mucus (test code = UA Mucus) Few /LPF [facility] AND [id number] 16:34:00 Test Item Value Reference Range Interpretation Comments UA Amorph Destiny (test code = Occasional /HPF UA Amorph Destiny) [facility] AND [id number] 16:34:00 Test Item Value Reference Range Interpretation Comments UA Leuk Est (test Negative (07/25/16 10:34 code = UA Leuk Est) AM) [facility] AND [id number] 16:34:00 Test Item Value Reference Range Interpretation Comments UA Nitrite (test code Negative (07/25/16 10:34 = UA Nitrite) AM) [facility] AND [id number] 16:34:00 Test Item Value Reference Range Interpretation Comments UA RBC (test code = 2 See_Comment [Automa rohit message] The UA RBC) system which ge nerated this result transmit rohit reference range : <=2. The reference range was not used to interpr et this result as reji l/abnormal. [facility] AND [id number] 16:34:00 Test Item Value Reference Range Interpretation Comments UA WBC (test code = 6 See_Comment [Automa rohit message] The UA WBC) system which ge nerated this result transmit rohit reference range : <=5. The reference range was not used to interpr et this result as reji l/abnormal. [facility] AND [id number] 16:34:00 Test Item Value Reference Range Interpretation Comments UA Urobilinogen (test code = UA 2.0 0.1-1.0 Urobilinogen) [facility] AND [id number] 16:34:00 Test Item Value Reference Range Interpretation Comments UA Ketones (test code = UA Negative mg/dL Ketones) [facility] AND [id number] 16:34:00 Test Item Value Reference Range Interpretation Comments UA Glucose (test code = UA Glucose) 70 mg/dL [facility] AND [id number] 16:34:00 Test Item Value Reference Range Interpretation Comments UA Blood (test code = Negative (07/25/16 10:34 UA Blood) AM) [facility] AND [id number] 16:34:00 Test Item Value Reference Range Interpretation Comments UA Bili (test code = Negative *NA*(07/25/16 UA Bili) 10:34 AM) [facility] AND [id number] 16:34:00 Test Item Value Reference Range Interpretation Comments UA Protein (test code = UA >=300 mg/dL Protein) [facility] AND [id number] 16:34:00 Test Item Value Reference Range Interpretation Comments UA Spec Grav (test code = UA Spec Grav) 1.012 [facility] AND [id number] 16:34:00 Test Item Value Reference Range Interpretation Comments UA pH (test code = UA pH) 5.5 5.0-8.0 [facility] AND [id number] 16:34:00 Test Item Value Reference Range Interpretation Comments UA Turbidity (test code Slight *ABN*(07/25/16 = UA Turbidity) 10:34 AM) [facility] AND [id number] 16:34:00 Test Item Value Reference Range Interpretation Comments UA Color (test code = Dark Yellow *NA*(07/25/16 UA Color) 10:34 AM) [facility] AND [id number] 16:34:00 Test Item Value Reference Range Interpretation Comments UA Gran Cast (test code = UA Gran Cast) 9 [facility] [id number] 16:34:00 Test Item Value Reference Range Interpretation Comments U Sodium (test code = U Sodium) 30 [facility] [id number] 16:34:00 Test Item Value Reference Range Interpretation Comments U Prot/Creat (test code = U Prot/Creat) 3.1 [facility] [id number] 16:34:00 Test Item Value Reference Range Interpretation Comments U Protein (test code = U Protein) 420.9 [facility] BossmanannURINE [id number] 16:34:00 Test Item Value Reference Range Interpretation Comments U Creatinine (test code = U 136.00 Creatinine) [facility]annCHE[facility] [id number] 08:55:00 Test Item Value Reference Range Interpretation Comments Magnesium Lvl (test code = Magnesium 2.0 1.8-2.4 Lvl) [facility]annCHEM [id number] 08:55:00 Test Item Value Reference Range Interpretation Comments Phosphorus (test code = Phosphorus) 5.2 2.5-4.5 [facility] [employer] [id number] 17:29:00 Test Item Value Reference Range Interpretation Comments Troponin-I (test code 0.28 See_Comment [Auto mated message] The = Troponin-I) system which g enerated this result transmit rohit reference range : <=0.40. The reference r leo was not used to interpr et this result as reji l/abnormal. [facility] [employer]2017-02-03 17:29:00 Test Item Value Reference Range Interpretation Comments Total CK (test code = Total CK) 2616 12-191 [facility] [employer]2017-02-03 17:29:00 Test Item Value Reference Range Interpretation Comments Troponin-T (test code 0.144 See_Comment [Auto mated message] The = Troponin-T) system which g enerated this result transmit rohit reference range : <=0.100. The reference r leo was not used to interpr et this result as reji l/abnormal. [facility] [employer]2017-02-03 17:29:00 Test Item Value Reference Range Interpretation Comments CK MB Index (test 0.2 See_Comment [Automate d message] The code = CK MB Index) system w [facility] generated this result transmit rohit reference range : <=2.5. The reference range was not used to interpr et this result as reji l/abnormal. [facility] [employer]2017-02-03 17:29:00 Test Item Value Reference Range Interpretation Comments CK MB (test code = CK MB) 6.3 0.5-3.6 [facility] [employer] [id number] 11:20:00 Test Item Value Reference Range Interpretation Comments Troponin-I (test code 0.38 See_Comment [Auto mated message] The = Troponin-I) system which g enerated this result transmit rohit reference range : <=0.40. The reference r leo was not used to interpr et this result as reji l/abnormal. [email or web address] 11:20:00 Test Item Value Reference Range Interpretation Comments Troponin-T (test code 0.173 See_Comment [Auto mated message] The = Troponin-T) system which g enerated this result transmit rohit reference range : <=0.100. The reference r leo was not used to interpr et this result as reji l/abnormal. [facility] [employer]2017-02-03 11:20:00 Test Item Value Reference Range Interpretation Comments CK MB Index (test 0.2 See_Comment [Automate d message] The code = CK MB Index) system w [facility] generated this result transmit rohit reference range : <=2.5. The reference range was not used to interpr et this result as reji l/abnormal. [facility] [employer]2017-02-03 11:20:00 Test Item Value Reference Range Interpretation Comments CK MB (test code = CK MB) 5.6 0.5-3.6 [facility] [employer]2017-02-03 11:20:00 Test Item Value Reference Range Interpretation Comments Phosphorus (test code = Phosphorus) 5.5 2.5-4.5 [facility] [employer]2017-02-03 06:18:00 Test Item Value Reference Range Interpretation Comments BNP (test code = BNP) 701 [facility] [employer]2017-02-03 04:59:27 Test Item Value Reference Range Interpretation Comments Troponin-I (test code 0.57 See_Comment [Auto mated message] The = Troponin-I) system which g enerated this result transmit rohit reference range : <=0.40. The reference r leo was not used to interpr et this result as reji l/abnormal. [email or web address] 10:22:00 Test Item Value Reference Range Interpretation Comments BNP (test code = BNP) 526 [employer]2016-12-26 10:22:00 Test Item Value Reference Range Interpretation Comments Magnesium Lvl (test code = Magnesium 2.1 1.8-2.4 Lvl) [facility]2016-12-26 10:22:00 Test Item Value Reference Range Interpretation Comments Glucose Lvl (test code = Glucose Lvl) 117 70-99 [facility]2016-12-26 10:22:00 Test Item Value Reference Range Interpretation Comments BUN (test code = BUN) 41 7-22 [facility]2016-12-26 10:22:00 Test Item Value Reference Range Interpretation Comments Creatinine Lvl (test code = Creatinine 2.00 0.50-1.40 Lvl) [facility]2016-12-26 10:22:00 Test Item Value Reference Range Interpretation Comments Calcium Lvl (test code = Calcium Lvl) 9.0 8.5-10.5 [facility]2016-12-26 10:22:00 Test Item Value Reference Range Interpretation Comments Chloride Lvl (test code = Chloride Lvl) 102 95-109 [facility]2016-12-26 10:22:00 Test Item Value Reference Range Interpretation Comments CO2 (test code = CO2) 33 24-32 [facility]2016-12-26 10:22:00 Test Item Value Reference Range Interpretation Comments Sodium Lvl (test code = Sodium Lvl) 144 135-145 [facility]2016-12-26 10:22:00 Test Item Value Reference Range Interpretation Comments Potassium Lvl (test code = Potassium 4.0 3.5-5.1 Lvl) [facility]2016-12-26 10:22:00 Test Item Value Reference Range Interpretation Comments eGFR (test code = eGFR) 32 [facility]2016-12-26 10:22:00 Test Item Value Reference Range Interpretation Comments AGAP (test code = AGAP) 13.0 10.0-20.0 [facility]2016-12-26 10:22:00 Test Item Value Reference Range Interpretation Comments Phosphorus (test code = Phosphorus) 4.6 2.5-4.5 [facility]wayVakujltDFIUPTHJLN5136-73-68 10:22:00 Test Item Value Reference Range Interpretation Comments RBC (test code = RBC) 3.68 4.20-5.40 [place] 502976-12-26 10:22:00 Test Item Value Reference Range Interpretation Comments Hgb (test code = Hgb) 9.9 12.0-16.0 [facility] LakewayTpsamtiNAHJRORWFJ7064-08-42 10:22:00 Test Item Value Reference Range Interpretation Comments MCH (test code = MCH) 26.8 pg 27.0-31.0 [facility] LakewayFdfptrqLKMDTHHILH0853-23-93 10:22:00 Test Item Value Reference Range Interpretation Comments MCHC (test code = MCHC) 34.2 32.0-36.0 [facility] LakewayEgeyefgQDKTPIVGQW0522-63-14 10:22:00 Test Item Value Reference Range Interpretation Comments MCV (test code = MCV) 78.3 80.0-98.0 [facility] LakewayMzdpogyKGMUOMQIBK9478-97-50 10:22:00 Test Item Value Reference Range Interpretation Comments Hct (test code = Hct) 28.8 36.0-48.0 [facility] LakewayTbgpjlxMIOPMXZXMP8456-60-25 10:22:00 Test Item Value Reference Range Interpretation Comments Platelet (test code = Platelet) 191 133-450 [facility] LakewayIztlgirFOJQOVLCIH7200-28-63 10:22:00 Test Item Value Reference Range Interpretation Comments MPV (test code = MPV) 9.5 7.4-10.4 [facility] LakewayXzlpgnfEECXLTERSL0929-82-71 10:22:00 Test Item Value Reference Range Interpretation Comments RDW (test code = RDW) 15.3 11.5-14.5 [facility] LakewayDhkjvapOYEVYNPGII7573-24-17 10:22:00 Test Item Value Reference Range Interpretation Comments WBC (test code = WBC) 5.6 3.7-10.4 [facility] LakewayGiquzkuJPCGCKJRBV5295-07-70 10:22:00 Test Item Value Reference Range Interpretation Comments Eosinophils # (test code 0.5 See_Comment [A utomated message] The = Eosinophils #) system whic h generated this result tra nsmitted reference range : <=0.5. The reference r leo was not used to int erpret this result as normal/abnormal . [facility] LakewayBrwdlhgFQBOMHMPPY6876-81-85 10:22:00 Test Item Value Reference Range Interpretation Comments Microcyte (test code = 1+ *ABN*(06/15/16 Microcyte) 4:22 AM) [facility] LakewayGttinmqESHEEAXDOP0059-63-01 10:22:00 Test Item Value Reference Range Interpretation Comments Basophils # (test code 0.1 See_Comment [Aut omated message] The = Basophils #) system which generated this result tra nsmitted reference range : <=0.2. The reference r leo was not used to int erpret this result as normal/abnormal . [facility] LakewayMmcqlpwVZEZPZYDSE2165-25-45 10:22:00 Test Item Value Reference Range Interpretation Comments Lymphocytes (test code = Lymphocytes) 33.5 20.0-40.0 [facility] LakewayOkapjkrWRFQCIHDLC6412-91-86 10:22:00 Test Item Value Reference Range Interpretation Comments Segs (test code = Segs) 47.6 45.0-75.0 [facility] LakewayTdfvmhoGJDPXYUELY1402-30-76 10:22:00 Test Item Value Reference Range Interpretation Comments Monocytes (test code = Monocytes) 8.4 2.0-12.0 [facility] LakewayIbyfdtdQTGSEOLEJF9001-29-11 10:22:00 Test Item Value Reference Range Interpretation Comments Eosinophils (test code = 9.4 See_Comment [A utomated message] The Eosinophils) system which ge nerated this result tra nsmitted reference range : <=4.0. The reference r leo was not used to int erpret this result as normal/abnormal . [facility] LakewayMeqficaQSHMMDQIDY0429-81-01 10:22:00 Test Item Value Reference Range Interpretation Comments Segs-Bands # (test code = Segs-Bands #) 2.6 1.5-8.1 [facility] LakewayQjiklvfKCYDPDKEXW4302-03-55 10:22:00 Test Item Value Reference Range Interpretation Comments Lymphocytes # (test code = Lymphocytes 1.9 1.0-5.5 #) [facility] LakewayEksyisoBDDCZTPIHH0295-26-24 10:22:00 Test Item Value Reference Range Interpretation Comments Basophils (test code = 1.1 See_Comment [Aut omated message] The Basophils) system which ge nerated this result tra nsmitted reference range : <=1.0. The reference r leo was not used to int erpret this result as normal/abnormal . [facility] LakewayEjtglcfSRHKOOMWGJ9445-95-64 10:22:00 Test Item Value Reference Range Interpretation Comments Monocytes # (test code 0.5 See_Comment [Aut omated message] The = Monocytes #) system which generated this result tra nsmitted reference range : <=0.8. The reference r leo was not used to int erpret this result as normal/abnormal . [facility]2016-12-25 11:03:00 Test Item Value Reference Range Interpretation Comments Phosphorus (test code = Phosphorus) 4.8 2.5-4.5 [facility]2016-12-25 11:03:00 Test Item Value Reference Range Interpretation Comments Magnesium Lvl (test code = Magnesium 2.0 1.8-2.4 Lvl) [facility]2016-12-25 11:03:00 Test Item Value Reference Range Interpretation Comments eGFR (test code = eGFR) 32 [facility]2016-12-25 11:03:00 Test Item Value Reference Range Interpretation Comments Chloride Lvl (test code = Chloride Lvl) 101 95-109 [facility]2016-12-25 11:03:00 Test Item Value Reference Range Interpretation Comments Potassium Lvl (test code = Potassium 4.4 3.5-5.1 Lvl) [facility]2016-12-25 11:03:00 Test Item Value Reference Range Interpretation Comments BUN (test code = BUN) 37 7-22 [facility]2016-12-25 11:03:00 Test Item Value Reference Range Interpretation Comments Glucose Lvl (test code = Glucose Lvl) 119 70-99 [facility]2016-12-25 11:03:00 Test Item Value Reference Range Interpretation Comments Creatinine Lvl (test code = Creatinine 2.00 0.50-1.40 Lvl) [facility]2016-12-25 11:03:00 Test Item Value Reference Range Interpretation Comments Sodium Lvl (test code = Sodium Lvl) 142 135-145 [facility]2016-12-25 11:03:00 Test Item Value Reference Range Interpretation Comments Calcium Lvl (test code = Calcium Lvl) 8.7 8.5-10.5 [facility]2016-12-25 11:03:00 Test Item Value Reference Range Interpretation Comments CO2 (test code = CO2) 32 24-32 [facility]2016-12-25 11:03:00 Test Item Value Reference Range Interpretation Comments AGAP (test code = AGAP) 13.4 10.0-20.0 [facility] LakewayBbaxaqmNPXZMXWPBL8514-95-03 11:03:00 Test Item Value Reference Range Interpretation Comments Eosinophils (test code = 10.3 See_Comment [A utomated message] The Eosinophils) system which ge nerated this result tra nsmitted reference range : <=4.0. The reference r leo was not used to int erpret this result as normal/abnormal . [facility] LakewayGywwyspUSDPVIDCAQ0219-31-27 11:03:00 Test Item Value Reference Range Interpretation Comments Basophils # (test code 0.1 See_Comment [Aut omated message] The = Basophils #) system which generated this result tra nsmitted reference range : <=0.2. The reference r leo was not used to int erpret this result as normal/abnormal . [facility] LakewayGieffvfXCFZTPCYWJ2273-65-80 11:03:00 Test Item Value Reference Range Interpretation Comments Eosinophils # (test code 0.5 See_Comment [A utomated message] The = Eosinophils #) system whic h generated this result tra nsmitted reference range : <=0.5. The reference r leo was not used to int erpret this result as normal/abnormal . [facility]waySbdagvvBOTMFBKPTF2177-06-43 11:03:00 Test Item Value Reference Range Interpretation Comments Monocytes # (test code 0.5 See_Comment [Aut omated message] The = Monocytes #) system which generated this result tra nsmitted reference range : <=0.8. The reference r leo was not used to int erpret this result as normal/abnormal . [facility] LakewayWiwocoxQSWFGFCEPF1112-05-36 11:03:00 Test Item Value Reference Range Interpretation Comments Segs-Bands # (test code = Segs-Bands #) 2.1 1.5-8.1 [facility] LakewayVuplircNNQKAXHOXO2258-78-77 11:03:00 Test Item Value Reference Range Interpretation Comments Basophils (test code = 1.2 See_Comment [Aut omated message] The Basophils) system which ge nerated this result tra nsmitted reference range : <=1.0. The reference r leo was not used to int erpret this result as normal/abnormal . [facility] LakewayQxbeaicWTGTTFEJZR2601-68-54 11:03:00 Test Item Value Reference Range Interpretation Comments Lymphocytes # (test code = Lymphocytes 1.9 1.0-5.5 #) [facility] LakewayQvuixnlHKVKBGPULG1243-82-42 11:03:00 Test Item Value Reference Range Interpretation Comments Segs (test code = Segs) 42.5 45.0-75.0 [facility] LakewayDymvmizSPWRVZFCIY1345-92-59 11:03:00 Test Item Value Reference Range Interpretation Comments Lymphocytes (test code = Lymphocytes) 37.0 20.0-40.0 [facility] LakewayTmhzeewGCAKJFRYNN6460-13-28 11:03:00 Test Item Value Reference Range Interpretation Comments Monocytes (test code = Monocytes) 9.0 2.0-12.0 [facility] LakewayVxvmzpuRSATYGCWZS6304-54-77 11:03:00 Test Item Value Reference Range Interpretation Comments MPV (test code = MPV) 9.8 7.4-10.4 [facility] LakewayYigalhiEEKKBFYOVU9031-05-06 11:03:00 Test Item Value Reference Range Interpretation Comments WBC (test code = WBC) 5.0 3.7-10.4 [facility] LakewayQwehrddWLSJLYFKYG2443-55-90 11:03:00 Test Item Value Reference Range Interpretation Comments RBC (test code = RBC) 3.57 4.20-5.40 [facility] LakewayXpgbslkLGDNBXAHGZ3803-42-40 11:03:00 Test Item Value Reference Range Interpretation Comments Hgb (test code = Hgb) 9.4 12.0-16.0 [facility] LakewayHpdipcxSXBYESFRAW9448-00-65 11:03:00 Test Item Value Reference Range Interpretation Comments Hct (test code = Hct) 28.5 36.0-48.0 [facility] LakewayGpgqesqRRBKVSWRGJ2359-53-17 11:03:00 Test Item Value Reference Range Interpretation Comments Platelet (test code = Platelet) 183 133-450 [facility] LakewayQwymjzjPQYMYABODP7890-82-83 11:03:00 Test Item Value Reference Range Interpretation Comments MCV (test code = MCV) 79.9 80.0-98.0 [facility] LakewayDxtpltrLNXITBQOFI1367-27-56 11:03:00 Test Item Value Reference Range Interpretation Comments MCH (test code = MCH) 26.3 pg 27.0-31.0 [facility] LakewayXuimwxoLQLWYMKWRW2752-02-14 11:03:00 Test Item Value Reference Range Interpretation Comments MCHC (test code = MCHC) 33.0 32.0-36.0 [facility] LakewayRcwrhpzYMAKITVDOU9244-47-68 11:03:00 Test Item Value Reference Range Interpretation [...] Protein (test code = U Protein) 133.1 [facility] LakewayKzstmcsAXBQOEMJNQ8001-06-62 09:20:00 Test Item Value Reference Range Interpretation Comments MPV (test code = MPV) 9.7 7.4-10.4 [facility] LakewayJsganyaDJEBZYHSIX0125-50-53 09:20:00 Test Item Value Reference Range Interpretation Comments Platelet (test code = Platelet) 184 133-450 [facility] LakewayDfpqascBVKHLWLQVX8952-82-47 09:20:00 Test Item Value Reference Range Interpretation Comments RDW (test code = RDW) 15.9 11.5-14.5 [facility] LakewayRvarkyoXOXANLRKSA4554-53-50 09:20:00 Test Item Value Reference Range Interpretation Comments MCV (test code = MCV) 79.3 80.0-98.0 [facility] LakewayUvmszexAQEDDZLWJD8989-73-97 09:20:00 Test Item Value Reference Range Interpretation Comments MCHC (test code = MCHC) 33.0 32.0-36.0 [facility] LakewayRshlrejJWKXBFTLJI4273-02-97 09:20:00 Test Item Value Reference Range Interpretation Comments MCH (test code = MCH) 26.2 pg 27.0-31.0 [facility] LakewayOwakhvnXDGBUQSWXX4867-46-63 09:20:00 Test Item Value Reference Range Interpretation Comments Hct (test code = Hct) 29.4 36.0-48.0 [facility] LakewayNzudvidURUEQXXTFC0048-86-27 09:20:00 Test Item Value Reference Range Interpretation Comments Hgb (test code = Hgb) 9.7 12.0-16.0 [facility] LakewayUxnofufQWJBSZXLUD8788-20-49 09:20:00 Test Item Value Reference Range Interpretation Comments RBC (test code = RBC) 3.70 4.20-5.40 [facility] LakewaySdbgeuwAVBHYZPVWN4561-16-65 09:20:00 Test Item Value Reference Range Interpretation Comments WBC (test code = WBC) 5.7 3.7-10.4 [facility] LakewayEgbfgcoWLLQEZEZME6577-19-32 09:20:00 Test Item Value Reference Range Interpretation Comments Basophils # (test code 0.1 See_Comment [Aut omated message] The = Basophils #) system which generated this result tra nsmitted reference range : <=0.2. The reference r leo was not used to int erpret this result as normal/abnormal . [facility] LakewayTcatmpvBPXFIDIRIA9256-37-82 09:20:00 Test Item Value Reference Range Interpretation Comments Lymphocytes # (test code = Lymphocytes 2.2 1.0-5.5 #) [facility] LakewayKrvozvhNJRFWJYXIU7076-00-30 09:20:00 Test Item Value Reference Range Interpretation Comments Eosinophils # (test code 0.5 See_Comment [A utomated message] The = Eosinophils #) system wh h generated this result tra nsmitted reference range : <=0.5. The reference r leo was not used to int erpret this result as normal/abnormal . [facility] LakewayEdnkyzhSTZZPGNAEM2911-29-09 09:20:00 Test Item Value Reference Range Interpretation Comments Monocytes # (test code 0.5 See_Comment [Aut omated message] The = Monocytes #) system which generated this result tra nsmitted reference range : <=0.8. The reference r leo was not used to int erpret this result as normal/abnormal . [facility] LakewayXxxggdpSFSUSQHJGP6053-23-69 09:20:00 Test Item Value Reference Range Interpretation Comments Basophils (test code = 1.1 See_Comment [Aut omated message] The Basophils) system which ge nerated this result tra nsmitted reference range : <=1.0. The reference r leo was not used to int erpret this result as normal/abnormal . [facility] LakewayIkqdnjeJUHVKJKZFJ5638-78-26 09:20:00 Test Item Value Reference Range Interpretation Comments Segs-Bands # (test code = Segs-Bands #) 2.3 1.5-8.1 [facility] LakewayVwyeiccNPKZSJNRCG9938-47-08 09:20:00 Test Item Value Reference Range Interpretation Comments Eosinophils (test code = 9.5 See_Comment [A utomated message] The Eosinophils) system which ge nerated this result tra nsmitted reference range : <=4.0. The reference r leo was not used to int erpret this result as normal/abnormal . [facility] LakewayHargivrHLACZYKNPZ5315-32-56 09:20:00 Test Item Value Reference Range Interpretation Comments Monocytes (test code = Monocytes) 9.0 2.0-12.0 [facility] LakewayNzfdbuoUVYXNZOIUP0524-49-69 09:20:00 Test Item Value Reference Range Interpretation Comments Lymphocytes (test code = Lymphocytes) 38.9 20.0-40.0 [facility] LakewayXqiutxqIZPJQHPXHK5169-48-75 09:20:00 Test Item Value Reference Range Interpretation Comments Segs (test code = Segs) 41.5 45.0-75.0 [facility]2016-12-24 06:34:00 Test Item Value Reference Range Interpretation Comments Magnesium Lvl (test code = Magnesium 1.7 1.8-2.4 Lvl) [facility]2016-12-24 06:34:00 Test Item Value Reference Range Interpretation Comments Phosphorus (test code = Phosphorus) 4.2 2.5-4.5 [facility]EdkftdgFBVNMOQYCFVG9784-91-01 06:34:00 Test Item Value Reference Range Interpretation Comments AGAP (test code = AGAP) 14.3 10.0-20.0 [facility] HospitalTkbrdgzKIJJHTFXPVAO7536-53-79 06:34:00 Test Item Value Reference Range Interpretation Comments eGFR (test code = eGFR) 41 [facility] HospitalTfqhmmtYUWULZRLKETU7799-88-76 06:34:00 Test Item Value Reference Range Interpretation Comments Chloride Lvl (test code = Chloride Lvl) 103 95-109 [facility] HospitalTpbsddtXNEXGAOCXLXI1989-30-94 06:34:00 Test Item Value Reference Range Interpretation Comments Calcium Lvl (test code = Calcium Lvl) 8.5 8.5-10.5 [facility] HospitalBsmaelyZJZNDBQKXNSV0614-28-18 06:34:00 Test Item Value Reference Range Interpretation Comments CO2 (test code = CO2) 32 24-32 [facility] HospitalAyfwspcFNTVKFAODULM0670-22-10 06:34:00 Test Item Value Reference Range Interpretation Comments Glucose Lvl (test code = Glucose Lvl) 173 70-99 [facility] HospitalIznadkzWASHKLFUZQHH7611-45-21 06:34:00 Test Item Value Reference Range Interpretation Comments BUN (test code = BUN) 37 7-22 [facility]YwbwzuvNNODCGWGEBAO7308-04-07 06:34:00 Test Item Value Reference Range Interpretation Comments Creatinine Lvl (test code = Creatinine 1.63 0.50-1.40 Lvl) [facility] HospitalVanmiyzPBZWQWLJIPWV1981-22-49 06:34:00 Test Item Value Reference Range Interpretation Comments Potassium Lvl (test code = Potassium 4.3 3.5-5.1 Lvl) [facility] HospitalHizuphlMTAQZHNIVVCT6762-78-35 06:34:00 Test Item Value Reference Range Interpretation Comments Sodium Lvl (test code = Sodium Lvl) 145 135-145 [facility]CHE[facility] CJEPY0172-15-04 16:21:00 Test Item Value Reference Range Interpretation Comments Ammonia (test code = Ammonia) 48.0 [facility] CenterRxkfgfbIBFFRMULOF1244-62-09 14:56:00 Test Item Value Reference Range Interpretation Comments IVETTE Interp (test code Pattern appears = IVETTE Interp) Nucleolar. [facility] CenterLdmcjimJZOLAELQEX8374-48-58 14:56:00 Test Item Value Reference Range Interpretation Comments IVETTE Titer (test code = 1:40 *ABN*(06/11/16 IVETTE Titer) 8:56 AM) [facility] CenterFeyhsqlCHIMWDXDWF3319-17-17 14:56:00 Test Item Value Reference Range Interpretation Comments Hep Bs Ag (test code Negative *NA*(06/11/16 = Hep Bs Ag) 8:56 AM) [facility]UvnqeluSCHWCDWLAG3026-96-79 14:56:00 Test Item Value Reference Range Interpretation Comments Hep C Ab (test code = Negative *NA*(06/11/16 Hep C Ab) 8:56 AM) [facility] CenterCjtpvrsKCTQLZVZDM0614-56-72 14:56:00 Test Item Value Reference Range Interpretation Comments Hep B Core IgM (test Negative *NA*(06/11/16 code = Hep B Core 8:56 AM) IgM) [facility] HospitalFegcesqSRWNIPCRHO4992-93-02 14:56:00 Test Item Value Reference Range Interpretation Comments Hep A IgM (test code Negative *NA*(06/11/16 = Hep A IgM) 8:56 AM) [facility] CenterWppjjjtVVXFOLSXRM1601-44-86 14:56:00 Test Item Value Reference Range Interpretation Comments HIV Ag/Ab 4th Gen Negative *NA*(06/11/16 (test code = HIV 8:56 AM) Ag/Ab 4th Gen) [facility] CenterUsrqazmUTDNWXSKJQ4622-56-31 14:56:00 Test Item Value Reference Range Interpretation Comments IVETTE (test code = IVETTE) Positive *ABN*(06/11/16 8:56 AM) [facility]2016-12-22 10:42:00 Test Item Value Reference Range Interpretation Comments Bili Total (test code = Bili Total) 0.1 0.2-1.3 [facility]2016-12-22 10:42:00 Test Item Value Reference Range Interpretation Comments Total Protein (test code = Total 5.2 6.4-8.4 Protein) [facility]2016-12-22 10:42:00 Test Item Value Reference Range Interpretation Comments Albumin Lvl (test code = Albumin Lvl) 1.6 3.5-5.0 [facility]2016-12-22 10:42:00 Test Item Value Reference Range Interpretation Comments B/C Ratio (test code = B/C Ratio) 20 6-25 [facility]2016-12-22 10:42:00 Test Item Value Reference Range Interpretation Comments Globulin (test code = Globulin) 3.6 2.7-4.2 [facility]2016-12-22 10:42:00 Test Item Value Reference Range Interpretation Comments A/G Ratio (test code = A/G Ratio) 0.4 0.7-1.6 [facility]2016-12-22 10:42:00 Test Item Value Reference Range Interpretation Comments Alk Phos (test code = Alk Phos) 74 39-136 [facility]2016-12-22 10:42:00 Test Item Value Reference Range Interpretation Comments ALT (test code = ALT) 14 See_Comment [Auto mated message] The system which ge nerated this result transmit rohit reference range : <=65. The reference range was not used to interpr et this result as reji l/abnormal. [facility]2016-12-22 10:42:00 Test Item Value Reference Range Interpretation Comments AST (test code = AST) 13 See_Comment [Auto mated message] The system which ge nerated this result transmit rohit reference range : <=37. The reference range was not used to interpr et this result as reji l/abnormal. [facility] HospitalFovwlqzNKXCMOLNKZ5825-94-75 10:42:00 Test Item Value Reference Range Interpretation Comments INR (test code = INR) 1.06 0.85-1.17 [facility] HospitalGftlxmhGDWBXFRNKW5458-39-10 10:42:00 Test Item Value Reference Range Interpretation Comments PT (test code = PT) 14.0 s 12.0-14.7 [facility] HospitalGfyjrasNHUIBCSZCZ6332-55-52 10:42:00 Test Item Value Reference Range Interpretation Comments PTT (test code = PTT) 36.4 s 22.9-35.8 [facility]IAL NHEOFIVSK0266-15-24 10:42:00 Test Item Value Reference Range Interpretation Comments Hgb A1C (test code = Hgb A1C) 10.5 [facility] CenterCARAC FPHMVQO2762-90-38 02:08:00 Test Item Value Reference Range Interpretation Comments CK MB Index (test 1.8 See_Comment [Automate d message] The code = CK MB Index) system w [facility] generated this result transmit rohit reference range : <=2.5. The reference range was not used to interpr et this result as reji l/abnormal. [facility] CenterSalsa Bear StudiosHEALTHS[facility] [id number] 02:08:00 Test Item Value Reference Range Interpretation Comments CK MB (test code = CK MB) 2.9 0.5-3.6 [facility] HGOKVZJ1748-20-63 02:08:00 Test Item Value Reference Range Interpretation Comments Troponin-T (test code 0.061 See_Comment [Auto mated message] The = Troponin-T) system which g enerated this result transmit rohit reference range : <=0.100. The reference r leo was not used to interpr et this result as reji l/abnormal. [facility] CenterSalsa Bear StudiosHEALTHS[facility] ILKAKFJ1583-25-98 02:08:00 Test Item Value Reference Range Interpretation Comments Total CK (test code = Total CK) 159 12-191 [facility] CenterSalsa Bear StudiosHEALTHS[facility] FXFWHIW8044-45-55 02:08:00 Test Item Value Reference Range Interpretation Comments Troponin-I (test code no gt See_Comment [Auto mated message] The = Troponin-I) system which g enerated this result transmit rohit reference range : <=0.40. The reference r leo was not used to interpr et this result as reji l/abnormal. [place] 109756-12-22 02:08:00 Test Item Value Reference Range Interpretation Comments Bili Total (test code = Bili Total) 0.2 0.2-1.3 [facility]2016-12-22 02:08:00 Test Item Value Reference Range Interpretation Comments Bili Direct (test code 0.1 See_Comment [Aut omated message] The = Bili Direct) system which generated this result tra nsmitted reference range : <=0.3. The reference r leo was not used to int erpret this result as reji l/abnormal. [facility]2016-12-22 02:08:00 Test Item Value Reference Range Interpretation Comments Bili Indirect (test 0.1 See_Comment [Automa rohit message] The code = Bili Indirect) system which generated this result tra nsmitted reference range : <=1.0. The reference r leo was not used to int erpret this result as normal/abnormal . [facility]2016-12-22 02:08:00 Test Item Value Reference Range Interpretation Comments Total Protein (test code = Total 5.7 6.4-8.4 Protein) [facility]2016-12-22 02:08:00 Test Item Value Reference Range Interpretation Comments A/G Ratio (test code = A/G Ratio) 0.5 0.7-1.6 [place] [id number] 02:08:00 Test Item Value Reference Range Interpretation Comments Albumin Lvl (test code = Albumin Lvl) 1.8 3.5-5.0 [place] 109756-12-22 02:08:00 Test Item Value Reference Range Interpretation Comments Globulin (test code = Globulin) 3.9 2.7-4.2 [place] 109756-12-22 02:08:00 Test Item Value Reference Range Interpretation Comments Alk Phos (test code = Alk Phos) 99 39-136 [facility]2016-12-22 02:08:00 Test Item Value Reference Range Interpretation Comments AST (test code = AST) 21 See_Comment [Auto mated message] The system which ge nerated this result transmit rohit reference range : <=37. The reference range was not used to interpr et this result as reji l/abnormal. [facility] CenterCHEM [id number] 02:08:00 Test Item Value Reference Range Interpretation Comments ALT (test code = ALT) 17 See_Comment [Auto mated message] The system which ge nerated this result transmit rohit reference range : <=65. The reference range was not used to interpr et this result as reji l/abnormal. [facility] [id number] 02:08:00 Test Item Value Reference Range Interpretation Comments UDS Note (test code = See Note *NA*(06/10/16 UDS Note) 8:08 PM) [facility] [id number] 02:08:00 Test Item Value Reference Range Interpretation Comments U Propoxyph Scr (test Negative *NA*(06/10/16 code = U Propoxyph Scr) 8:08 PM) [facility] [id number] 02:08:00 Test Item Value Reference Range Interpretation Comments U Opiate Scr (test Negative *NA*(06/10/16 code = U Opiate Scr) 8:08 PM) [facility] IPIMEE6366-07-27 02:08:00 Test Item Value Reference Range Interpretation Comments U Methadone Scr (test Negative *NA*(06/10/16 code = U Methadone Scr) 8:08 PM) [facility] [id number] 02:08:00 Test Item Value Reference Range Interpretation Comments U Phencyc Scr (test Negative *NA*(06/10/16 code = U Phencyc Scr) 8:08 PM) [facility] [id number] 02:08:00 Test Item Value Reference Range Interpretation Comments U Cannab Scr (test Negative *NA*(06/10/16 code = U Cannab Scr) 8:08 PM) [facility] [id number] 02:08:00 Test Item Value Reference Range Interpretation Comments U Amph Scr (test code Negative *NA*(06/10/16 = U Amph Scr) 8:08 PM) [facility] [id number] 02:08:00 Test Item Value Reference Range Interpretation Comments U Kelly Scr (test code Negative *NA*(06/10/16 = U Kelly Scr) 8:08 PM) [facility] [id number] 02:08:00 Test Item Value Reference Range Interpretation Comments U Benzodia Scr (test Negative *NA*(06/10/16 code = U Benzodia Scr) 8:08 PM) [facility] [id number] 02:08:00 Test Item Value Reference Range Interpretation Comments U Cocaine Scr (test Negative *NA*(06/10/16 code = U Cocaine Scr) 8:08 PM) [facility] PybcgnnWCTAGD1121-99-91 02:08:00 Test Item Value Reference Range Interpretation Comments LDL (Calculated) (test code = LDL 75 (Calculated)) [facility] FnkejgrBTEVOO9654-44-05 02:08:00 Test Item Value Reference Range Interpretation Comments VLDL (test code = VLDL) 27 [facility] BtvkfaaRFNLHS0434-81-60 02:08:00 Test Item Value Reference Range Interpretation Comments Chol (test code = Chol) 133 [facility] CvgmsorGTWIKU0849-68-24 02:08:00 Test Item Value Reference Range Interpretation Comments Trig (test code = Trig) 133 [facility] TcgjxouJTIVBH6550-92-47 02:08:00 Test Item Value Reference Range Interpretation Comments CHD Risk (test code = CHD Risk) 4.29 3.90-5.80 [facility] UnprndfFKALQA2599-83-54 02:08:00 Test Item Value Reference Range Interpretation Comments HDL (test code = HDL) 31 [facility]annUR[facility] AND [id number] 02:08:00 Test Item Value Reference Range Interpretation Comments UA Urobilinogen (test code = UA <=1.0 mg/dL 0.1-1.0 Urobilinogen) [facility]ann[facility] AND [id number] 02:08:00 Test Item Value Reference Range Interpretation Comments UA Ketones (test code = UA Negative mg/dL Ketones) [facility] [id number] 02:08:00 Test Item Value Reference Range Interpretation Comments UA Glucose (test code = UA Glucose) 300 mg/dL [facility] AND [id number] 02:08:00 Test Item Value Reference Range Interpretation Comments UA Protein (test code = UA >=300 mg/dL Protein) [facility] [id number] 02:08:00 Test Item Value Reference Range Interpretation Comments UA pH (test code = UA pH) 6.0 5.0-8.0 [facility] [id number] 02:08:00 Test Item Value Reference Range Interpretation Comments UA Nitrite (test code Negative (06/10/16 8:08 = UA Nitrite) PM) [facility] AND [id number] 02:08:00 Test Item Value Reference Range Interpretation Comments UA Blood (test code = Trace *ABN*(06/10/16 UA Blood) 8:08 PM) [facility] AND [id number] 02:08:00 Test Item Value Reference Range Interpretation Comments UA Bili (test code = Negative *NA*(06/10/16 UA Bili) 8:08 PM) [facility] AND [id number] 02:08:00 Test Item Value Reference Range Interpretation Comments UA Mucus (test code = UA Mucus) Few /LPF [facility] AND [id number] 02:08:00 Test Item Value Reference Range Interpretation Comments UA RBC (test code = 4 See_Comment [Automa rohit message] The UA RBC) system which ge nerated this result transmit rohit reference range : <=2. The reference range was not used to interpr et this result as reji l/abnormal. [facility] [id number] 02:08:00 Test Item Value Reference Range Interpretation Comments UA Sq Epi (test code = UA Sq Epi) Few /LPF [facility] AND [id number] 02:08:00 Test Item Value Reference Range Interpretation Comments UA WBC (test code = 5 See_Comment [Automa rohit message] The UA WBC) system which ge nerated this result transmit rohit reference range : <=5. The reference range was not used to interpr et this result as reji l/abnormal. [facility] [id number] 02:08:00 Test Item Value Reference Range Interpretation Comments UA Leuk Est (test code Small *ABN*(06/10/16 = UA Leuk Est) 8:08 PM) [facility] AND [id number] 02:08:00 Test Item Value Reference Range Interpretation Comments UA Hyal Cast (test 1 See_Comment [Automat ed message] The code = UA Hyal Cast) system which generated this result transmit rohit reference range : <=2. The reference range was not used to interpr et this result as reji l/abnormal. [facility] AND [id number] 02:08:00 Test Item Value Reference Range Interpretation Comments UA Spec Grav (test code = UA Spec Grav) 1.009 [facility]ann[facility] [id number] 02:08:00 Test Item Value Reference Range Interpretation Comments UA Color (test code = Yellow *NA*(06/10/16 UA Color) 8:08 PM) [facility] AND [id number] 02:08:00 Test Item Value Reference Range Interpretation Comments UA Turbidity (test code = Clear (06/10/16 8:08 UA Turbidity) PM) [facility] [id number] 02:08:00 Test Item Value Reference Range Interpretation Comments U Preg (test code = U Negative (06/10/16 8:08 Preg) PM) [facility] [id number] 02:08:00 Test Item Value Reference Range Interpretation Comments U Protein (test code = U Protein) 375.4 [facility] [id number] 02:08:00 Test Item Value Reference Range Interpretation Comments U Prot/Creat (test code = U Prot/Creat) 5.4 [facility] [id number] 02:08:00 Test Item Value Reference Range Interpretation Comments U Creatinine (test code = U Creatinine) [facility].80 [id number] 16:53:00 Test Item Value Reference Range Interpretation Comments BNP (test code = BNP) 1135 [facility] [id number] 16:53:00 Test Item Value Reference Range Interpretation Comments Troponin-I (test code no gt See_Comment [Auto mated message] The = Troponin-I) system which g enerated this result transmit rohit reference range : <=0.40. The reference r leo was not used to interpr et this result as reji l/abnormal. [facility] [id number] 13:02:00 Test Item Value Reference Range Interpretation Comments Lactic Acid WB (test code = Lactic Acid 0.9 0.5-2.2 WB) [facility] CenterTlqxxgcPSVOFRWVCN9867-80-90 12:29:44 Test Item Value Reference Range Interpretation Comments Valproic Acid Lvl (test code = Valproic 10 50-100 Acid Lvl) [place] [id number] 11:21:27 Test Item Value Reference Range Interpretation Comments hCG Tot (test code = hCG Tot) 1 [facility]2015-01-06 11:21:00 Test Item Value Reference Range Interpretation Comments Albumin Lvl (test code = Albumin Lvl) 3.2 3.5-5.0 [facility]2015-01-06 11:21:00 Test Item Value Reference Range Interpretation Comments Total Protein (test code = Total 6.6 6.4-8.4 Protein) [facility]2015-01-06 11:21:00 Test Item Value Reference Range Interpretation Comments Bili Total (test code = Bili Total) 0.6 0.2-1.3 [facility]2015-01-06 11:21:00 Test Item Value Reference Range Interpretation Comments Alk Phos (test code = Alk Phos) 59 39-136 [facility]2015-01-06 11:21:00 Test Item Value Reference Range Interpretation Comments AST (test code = AST) 11 See_Comment [Auto mated message] The system which ge nerated this result transmit rohit reference range : <=37. The reference range was not used to interpr et this result as rjei l/abnormal. [facility]2015-01-06 11:21:00 Test Item Value Reference Range Interpretation Comments ALT (test code = ALT) 17 See_Comment [Auto mated message] The system which ge nerated this result transmit rohit reference range : <=65. The reference range was not used to interpr et this result as reji l/abnormal. [facility]2015-01-06 11:21:00 Test Item Value Reference Range Interpretation Comments eGFR (test code = eGFR) 99 [facility]2015-01-06 11:21:00 Test Item Value Reference Range Interpretation Comments Glucose Lvl (test code = Glucose Lvl) 314 70-99 [facility]2015-01-06 11:21:00 Test Item Value Reference Range Interpretation Comments Potassium Lvl (test code = Potassium 3.4 3.5-5.1 Lvl) [facility]2015-01-06 11:21:00 Test Item Value Reference Range Interpretation Comments BUN (test code = BUN) 11 7-22 [place] [id number] 11:21:00 Test Item Value Reference Range Interpretation Comments Creatinine Lvl (test code = Creatinine 0.8 0.5-1.4 Lvl) [facility]2015-01-06 11:21:00 Test Item Value Reference Range Interpretation Comments Sodium Lvl (test code = Sodium Lvl) 134 135-145 [facility]2015-01-06 11:21:00 Test Item Value Reference Range Interpretation Comments Chloride Lvl (test code = Chloride Lvl) 94 95-109 [facility]2015-01-06 11:21:00 Test Item Value Reference Range Interpretation Comments Calcium Lvl (test code = Calcium Lvl) 9.1 8.5-10.5 [facility]2015-01-06 11:21:00 Test Item Value Reference Range Interpretation Comments CO2 (test code = CO2) 24 24-32 [facility]2015-01-06 11:21:00 Test Item Value Reference Range Interpretation Comments A/G Ratio (test code = A/G Ratio) 0.9 0.7-1.6 [facility]2015-01-06 11:21:00 Test Item Value Reference Range Interpretation Comments Globulin (test code = Globulin) 3.4 2.0-4.0 [facility]2015-01-06 11:21:00 Test Item Value Reference Range Interpretation Comments B/C Ratio (test code = B/C Ratio) 14 6-25 [facility]2015-01-06 11:21:00 Test Item Value Reference Range Interpretation Comments AGAP (test code = AGAP) 19.4 10.0-20.0 [facility]2015-01-06 11:21:00 Test Item Value Reference Range Interpretation Comments Lipase Lvl (test code = Lipase Lvl) 81 73-393 [facility]wayPqnukkgLMYJAGUDYL7563-08-62 11:21:00 Test Item Value Reference Range Interpretation Comments Large Plt (test code = Large Plt) Slight [facility] LakewayGfyhpgeNRDKOHWMKJ6669-43-18 11:21:00 Test Item Value Reference Range Interpretation Comments Basophils # (test code 0.0 See_Comment [Aut omated message] The = Basophils #) system which generated this result tra nsmitted reference range : <=0.2. The reference r leo was not used to int erpret this result as normal/abnormal . [facility] LakewayDqodzaqPRGMGEFCQJ2050-40-34 11:21:00 Test Item Value Reference Range Interpretation Comments Anisocyte (test code = 1+ *ABN*(06/26/14 5:21 Anisocyte) AM) [facility] LakewayFbcxtbhTZAMASQGRF3330-61-66 11:21:00 Test Item Value Reference Range Interpretation Comments Monocytes # (test code 0.6 See_Comment [Aut omated message] The = Monocytes #) system which generated this result tra nsmitted reference range : <=0.8. The reference r leo was not used to int erpret this result as normal/abnormal . [facility] LakewayVwwdyhlMTLDDRQEFZ3899-42-00 11:21:00 Test Item Value Reference Range Interpretation Comments Eosinophils # (test code 0.1 See_Comment [A utomated message] The = Eosinophils #) system whic h generated this result tra nsmitted reference range : <=0.5. The reference r leo was not used to int erpret this result as normal/abnormal . [facility] LakewayZahukjvMUYGAKAFVC3932-25-09 11:21:00 Test Item Value Reference Range Interpretation Comments Lymphocytes # (test code = Lymphocytes 2.5 1.0-5.5 #) [facility] LakewayAmfzifdWDGIHDKVYG0466-43-02 11:21:00 Test Item Value Reference Range Interpretation Comments Segs (test code = Segs) 63.3 45.0-75.0 [facility] LakewayCppbikdRDDDHMBGVX9373-10-30 11:21:00 Test Item Value Reference Range Interpretation Comments Segs-Bands # (test code = Segs-Bands #) 5.6 1.5-8.1 [facility] LakewayFglwyprNETXEQUZDB8991-19-19 11:21:00 Test Item Value Reference Range Interpretation Comments Basophils (test code = 0.0 See_Comment [Aut omated message] The Basophils) system which ge nerated this result tra nsmitted reference range : <=1.0. The reference r leo was not used to int erpret this result as normal/abnormal . [facility] LakewaySzoerclQXQRDIYLAQ7571-82-47 11:21:00 Test Item Value Reference Range Interpretation Comments Eosinophils (test code = 0.9 See_Comment [A utomated message] The Eosinophils) system which ge nerated this result tra nsmitted reference range : <=4.0. The reference r leo was not used to int erpret this result as normal/abnormal . [facility] LakewayBrhqxgnCJPKVUXZKB5098-72-56 11:21:00 Test Item Value Reference Range Interpretation Comments Monocytes (test code = Monocytes) 7.0 2.0-12.0 [facility] LakewayFhpwvywGGZRVGIJIK3095-55-56 11:21:00 Test Item Value Reference Range Interpretation Comments Lymphocytes (test code = Lymphocytes) 28.8 20.0-40.0 [facility] LakewayPljpdsqAEMAFQGYYX3221-21-19 11:21:00 Test Item Value Reference Range Interpretation Comments WBC (test code = WBC) 8.8 3.7-10.4 [facility] LakewayXhqxtzjATWODQBBRM8756-68-38 11:21:00 Test Item Value Reference Range Interpretation Comments RBC (test code = RBC) 5.19 4.20-5.40 [facility] LakewayRyudalwMERYEJJNSS4364-67-73 11:21:00 Test Item Value Reference Range Interpretation Comments Hgb (test code = Hgb) 14.4 12.0-16.0 [facility] LakewayYjphebmTJWQTZXUKW8845-83-55 11:21:00 Test Item Value Reference Range Interpretation Comments Hct (test code = Hct) 43.1 36.0-48.0 [facility] LakewayRyhfaqzQBIVGZMQUE5426-49-63 11:21:00 Test Item Value Reference Range Interpretation Comments MCV (test code = MCV) 83.1 80.0-98.0 [facility] LakewayFoxesmfEBWHCNJIFI2994-11-31 11:21:00 Test Item Value Reference Range Interpretation Comments MCH (test code = MCH) 27.8 pg 27.0-31.0 [facility] LakewayWoxpvykTDIADKCIWC1394-05-03 11:21:00 Test Item Value Reference Range Interpretation Comments RDW (test code = RDW) 13.1 11.5-14.5 [facility] LakewayOjvkafnXNMTVJWMYB3694-01-14 11:21:00 Test Item Value Reference Range Interpretation Comments MCHC (test code = MCHC) 33.5 32.0-36.0 [facility] LakewayEowktdoANJTEMGSJT2644-57-99 11:21:00 Test Item Value Reference Range Interpretation Comments Platelet (test code = Platelet) 201 133-450 [facility] LakewayRzovqdrOSANYQQCOU9523-39-71 11:21:00 Test Item Value Reference Range Interpretation Comments MPV (test code = MPV) 10.4 7.4-10.4 [facility]GnsegnbMBNIVROIYV1497-11-23 04:48:55 Test Item Value Reference Range Interpretation Comments UA [place] Yeast (test code = UA Occasional /HPF A [place] Yeast) [facility] HospitalGhkpuvpDWCDNERKDU8058-64-76 04:48:55 Test Item Value Reference Range Interpretation Comments UA Mucus (test code = UA Mucus) Few /LPF N [facility] HospitalZhniagsMPIRHTJMAM9050-48-61 04:48:55 Test Item Value Reference Range Interpretation Comments UA Sq Epi (test code = UA Sq Moderate /LPF A Epi) [facility] HospitalGwdmmypDKWOIDRQYP7700-36-46 04:48:55 Test Item Value Reference Range Interpretation Comments Micro? (test code = Performed (04/14/2013 N Micro?) 23:48:55) [facility] HospitalHmlrgqoNXMPNHBSRV7649-32-66 04:48:55 Test Item Value Reference Range Interpretation Comments UA WBC (test code = UA WBC) 0-2 /HPF N [facility] HospitalEwsiweyGHXCKMTGOY3319-74-38 04:48:55 Test Item Value Reference Range Interpretation Comments UA Bacteria (test code = UA Occasional /HPF N Bacteria) [facility] HospitalFwmwltnMGPPFZJNCH2347-92-26 04:48:55 Test Item Value Reference Range Interpretation Comments UA Glucose (test code = UA Glucose) 500 mg/dL A [facility] HospitalKkpqwlhAJOIVYXWXZ8491-48-38 04:48:55 Test Item Value Reference Range Interpretation Comments UA Bili (test code = Negative *NA*(04/14/2013 UA Bili) 23:48:55) [facility] HospitalBegwpkzLZGEYOQBKH2836-00-02 04:48:55 Test Item Value Reference Range Interpretation Comments UA Ketones (test code = Trace A UA Ketones) *ABN*(04/14/2013 23:48:55) [facility] HospitalCbtjnjsWXSSSIVJAW5562-25-62 04:48:55 Test Item Value Reference Range Interpretation Comments UA Blood (test code = Negative (04/14/2013 N UA Blood) 23:48:55) [facility] HospitalHwjkfzgNAXXRLOFYS3827-68-68 04:48:55 Test Item Value Reference Range Interpretation Comments UA Urobilinogen (test code = UA 0.2 0.1-1.0 N Urobilinogen) [facility] HospitalFkvssgvIYHQCIPIQW3754-83-53 04:48:55 Test Item Value Reference Range Interpretation Comments UA Nitrite (test code Negative (04/14/2013 N = UA Nitrite) 23:48:55) [facility]IrcvxwpFLGWHQXTIS5180-11-01 04:48:55 Test Item Value Reference Range Interpretation Comments UA Leuk Est (test Negative (04/14/2013 N code = UA Leuk Est) 23:48:55) [facility] HospitalPzeihuwTRERTISQXC2694-57-45 04:48:55 Test Item Value Reference Range Interpretation Comments UA Turbidity (test code = Clear (04/14/2013 N UA Turbidity) 23:48:55) [facility] HospitalZkehcdjVCDXQKDFPG0403-57-96 04:48:55 Test Item Value Reference Range Interpretation Comments UA Color (test code = Yellow *NA*(04/14/2013 UA Color) 23:48:55) [facility] HospitalSarurgrULURIRYHVG5053-73-68 04:48:55 Test Item Value Reference Range Interpretation Comments UA pH (test code = UA pH) 7.0 1 5.0-8.0 N [facility] HospitalLphxofgTAQNDJAGHQ3792-58-89 04:48:55 Test Item Value Reference Range Interpretation Comments UA Spec Grav (test code = UA Spec 1.025 1 N Grav) [facility] HospitalWprgkhpXUOBQQOJPE4135-00-45 04:48:55 Test Item Value Reference Range Interpretation Comments UA Protein (test code = Trace A UA Protein) *ABN*(04/14/2013 23:48:55) [facility] HospitalTaznmbyTEEADRUBE5380-74-30 04:28:00 Test Item Value Reference Range Interpretation Comments S Preg (test code = S Negative *NA*(04/14/2013 Preg) 23:28:00) [facility] HospitalDusmvfoLXRKGMNKL8320-50-75 04:28:00 Test Item Value Reference Range Interpretation Comments Lipase Lvl (test code = Lipase Lvl) 233 73-393 N [facility] HospitalDlsckjgMWXHVVSLR9282-86-42 04:28:00 Test Item Value Reference Range Interpretation Comments Globulin (test code = Globulin) 4.1 2.0-4.0 H [facility] HospitalRgfkzscGPGKFTRSZ6852-58-63 04:28:00 Test Item Value Reference Range Interpretation Comments AGAP (test code = AGAP) 10.5 10.0-20.0 N [facility] HospitalJrqdpvqZIPRIQWIK1396-54-50 04:28:00 Test Item Value Reference Range Interpretation Comments B/C Ratio (test code = B/C Ratio) 6 6-25 N [facility] HospitalAxxmhurTZUGOUIMS8995-02-45 04:28:00 Test Item Value Reference Range Interpretation Comments A/G Ratio (test code = A/G Ratio) 0.7 0.7-1.6 N [facility] HospitalDaxyzvbINAJVRKCH8111-90-98 04:28:00 Test Item Value Reference Range Interpretation Comments eGFR (test code = eGFR) 130 [facility] HospitalRrhfbneVCHIPNGHW2445-92-46 04:28:00 Test Item Value Reference Range Interpretation Comments Albumin Lvl (test code = Albumin Lvl) 2.9 3.5-5.0 L [facility] HospitalFdbrejwZHIBTEGIE3575-72-31 04:28:00 Test Item Value Reference Range Interpretation Comments ASPARTATE TRANSAMINASE 20 See_Comment N [Aut omated message] (test code = ASPARTATE The s ystem which TRANSAMINASE) generated this result transmitted ref erence range: <=37. Th e reference range was not used to interpr et this result as normal/abnormal . [facility] HospitalJhcfwhsUUNHTPNQR1290-79-08 04:28:00 Test Item Value Reference Range Interpretation Comments Bili Total (test code = Bili Total) 0.5 0.2-1.3 N [facility] HospitalQelktuaFCGVOYRWP0265-95-23 04:28:00 Test Item Value Reference Range Interpretation Comments Alk Phos (test code = Alk Phos) 89 39-136 N [facility] HospitalJjscuppQWLLIOWYM5303-33-96 04:28:00 Test Item Value Reference Range Interpretation Comments ALANINE AMINOTRANSFERASE 11 See_Comment N [A utomated message] (test code = ALANINE The sys tem which AMINOTRANSFERASE) generated this result transmitted ref erence range: <=65. Th e reference range was not used to int erpret this result as normal/abnormal . [facility] HospitalRicnzlgARAIAHLNK9094-83-34 04:28:00 Test Item Value Reference Range Interpretation Comments Creatinine Lvl (test code = Creatinine 0.5 0.5-1.4 N Lvl) [facility] HospitalFukliyxIOQYBHTGV7177-40-56 04:28:00 Test Item Value Reference Range Interpretation Comments BUN (test code = BUN) 3 7-22 L [facility] HospitalBrsmwmmANYURUGTT9559-07-23 04:28:00 Test Item Value Reference Range Interpretation Comments Glucose Lvl (test code = Glucose Lvl) 255 70-99 H [facility] HospitalMbtdngaRFSGNFMBR5128-55-96 04:28:00 Test Item Value Reference Range Interpretation Comments Total Protein (test code = Total 7.0 6.4-8.4 N Protein) [facility] HospitalPzirztpCGEGKYYZT0266-31-09 04:28:00 Test Item Value Reference Range Interpretation Comments Calcium Lvl (test code = Calcium Lvl) 8.7 8.5-10.5 N [facility] HospitalLkiuqcnMENHJPTXO0619-54-79 04:28:00 Test Item Value Reference Range Interpretation Comments CO2 (test code = CO2) 29 24-32 N [facility] HospitalLjdoflfFYUOPNQNK9896-20-57 04:28:00 Test Item Value Reference Range Interpretation Comments Chloride Lvl (test code = Chloride Lvl) 104 95-109 N [facility] HospitalHstbfhlIRCJISNFX5538-11-00 04:28:00 Test Item Value Reference Range Interpretation Comments Potassium Lvl (test code = Potassium 3.5 3.5-5.1 N Lvl) [facility] HospitalNixdrruIJCQGHQJY6041-18-24 04:28:00 Test Item Value Reference Range Interpretation Comments Sodium Lvl (test code = Sodium Lvl) 140 135-145 N [facility]wayVhdlbmjTWLHIFOMDK5376-23-70 04:28:00 Test Item Value Reference Range Interpretation Comments PROTIME (test code = PROTIME) 12.1 s 12.0-14.7 N [facility] LakewayNyiietzSOFUZLLGBL3040-37-34 04:28:00 Test Item Value Reference Range Interpretation Comments aPTT (test code = aPTT) 39.0 s 22.9-35.8 H [facility] LakewayRonnisbQGXQLSPGWE3737-26-14 04:28:00 Test Item Value Reference Range Interpretation Comments INR (test code = INR) 0.90 0.85-1.17 N [facility] LakewayUvohexmJXWLIENMTT9686-04-54 04:28:00 Test Item Value Reference Range Interpretation Comments MCH (test code = MCH) 29.4 pg 27.0-31.0 N [facility] LakewayImtgqrfOUGILWIHPK9436-41-11 04:28:00 Test Item Value Reference Range Interpretation Comments MCV (test code = MCV) 86.1 81.0-99.0 N [facility] LakewayZjrdqyhJTRUAHXDJA0860-04-01 04:28:00 Test Item Value Reference Range Interpretation Comments Hct (test code = Hct) 29.4 36.0-48.0 L [facility] LakewayNjdqoerFKTKCRGHYQ2197-87-06 04:28:00 Test Item Value Reference Range Interpretation Comments RDW (test code = RDW) 14.0 11.5-14.5 N [facility] LakewayEbuekjhLBEACISJAO3121-82-39 04:28:00 Test Item Value Reference Range Interpretation Comments WBC X 10x3 (test code = WBC X 10x3) 6.2 3.7-10.4 N [facility] LakewayMdtmmrqJVZZKIEKLK0467-71-95 04:28:00 Test Item Value Reference Range Interpretation Comments Platelet (test code = Platelet) 178 133-450 N [facility] LakewaySfudllrZNJRLRDVKX0832-99-74 04:28:00 Test Item Value Reference Range Interpretation Comments MCHC (test code = MCHC) 34.1 32.0-36.0 N [facility] LakewayVpbphenZZAJAUPACB2631-31-47 04:28:00 Test Item Value Reference Range Interpretation Comments RBC X 10x6 (test code = RBC X 10x6) 3.41 4.20-5.40 L [facility] LakewayZohnbqaHHLFWYBUDC2446-20-62 04:28:00 Test Item Value Reference Range Interpretation Comments Hgb (test code = Hgb) 10.0 12.0-16.0 L [facility] LakewayVttkpxfFNSCBJTAPZ2092-80-54 04:28:00 Test Item Value Reference Range Interpretation Comments MPV (test code = MPV) 10.1 7.4-10.4 N [facility] LakewayZefsnabPIOJTVWHBC7822-93-89 04:28:00 Test Item Value Reference Range Interpretation Comments Segs-Bands # (test code = Segs-Bands #) 4.4 1.5-8.1 N [facility] LakewayZtwkakvOYIHKSETNS0736-15-00 04:28:00 Test Item Value Reference Range Interpretation Comments Basophils (test code = 0.7 See_Comment N [Aut omated message] The Basophils) system which ge nerated this result tra nsmitted reference range : <=1.0. The reference r leo was not used to int erpret this result as normal/abnormal . [facility] LakewayZnyhgbzDWYFNOSAZK5609-58-96 04:28:00 Test Item Value Reference Range Interpretation Comments Segs (test code = Segs) 70.7 45.0-75.0 N [facility] LakewayTubmmzzIDIBOXCTIR8396-73-86 04:28:00 Test Item Value Reference Range Interpretation Comments Monocytes # (test code 0.3 See_Comment N [Aut omated message] The = Monocytes #) system which generated this result tra nsmitted reference range : <=0.8. The reference r leo was not used to int erpret this result as normal/abnormal . [facility] LakewayHttigbdRRNDLJYMFC2158-25-44 04:28:00 Test Item Value Reference Range Interpretation Comments Lymphocytes # (test code = Lymphocytes 1.2 1.0-5.5 N #) [facility] LakewayEinmyyrZDPOLSJCGU5236-37-99 04:28:00 Test Item Value Reference Range Interpretation Comments Monocytes (test code = Monocytes) 4.5 2.0-12.0 N [facility] LakewayKcdwjckATDZNBZFJJ9061-99-04 04:28:00 Test Item Value Reference Range Interpretation Comments Eosinophils (test code = 4.1 See_Comment H [A utomated message] The Eosinophils) system which ge nerated this result tra nsmitted reference range : <=4.0. The reference r leo was not used to int erpret this result as normal/abnormal . [facility] LakewayRohaiohGNUPXOEXLM3155-77-49 04:28:00 Test Item Value Reference Range Interpretation Comments Lymphocytes (test code = Lymphocytes) 20.0 20.0-40.0 N [facility] LakewayAntreqkFAXYJGHNHH0106-19-75 04:28:00 Test Item Value Reference Range Interpretation Comments Basophils # (test code 0.0 See_Comment N [Aut omated message] The = Basophils #) system which generated this result tra nsmitted reference range : <=0.2. The reference r leo was not used to int erpret this result as normal/abnormal . [facility] LakewayWsntkchIZFVHMVXUV8283-71-60 04:28:00 Test Item Value Reference Range Interpretation Comments Eosinophils # (test code 0.3 See_Comment N [A utomated message] The = Eosinophils #) system whic h generated this result tra nsmitted reference range : <=0.5. The reference r leo was not used to int erpret this result as normal/abnormal . [facility] GLUCOSE XZIEWWD0917-82-02 01:12:00 Test Item Value Reference Range Interpretation Comments Gluc POC Lifscn (test code = Gluc POC 260 70-99 H Lifscn) [facility] GLUCOSE CVNLJYV6115-39-27 01:12:00 Test Item Value Reference Range Interpretation Comments Comment1 (test code = Comment1) Riccoy RN/MD [facility] HospitalHrwrnayUYGCSEPJLX5793-36-16 23:40:00 Test Item Value Reference Range Interpretation Comments UA Protein (test code = Trace A UA Protein) *ABN*(03/14/2012 18:40:00) [facility] HospitalEzhdogsXFANTFUNXA1618-42-99 23:40:00 Test Item Value Reference Range Interpretation Comments UA pH (test code = UA pH) 6.0 1 5.0-8.0 N [facility] HospitalZavpksoYOWFQVMOBJ9727-83-53 23:40:00 Test Item Value Reference Range Interpretation Comments UA Ketones (test code = >=80 mg/dL UA Ketones) *NA*(03/14/2012 18:40:00) [facility] HospitalGttsesmYXMAVVMAOZ3892-17-98 23:40:00 Test Item Value Reference Range Interpretation Comments UA Glucose (test code = >=1000 mg/dL A UA Glucose) *ABN*(03/14/2012 18:40:00) [facility] HospitalPjtiaihTEWGKBCWDT8559-72-66 23:40:00 Test Item Value Reference Range Interpretation Comments UA Blood (test code = Negative (03/14/2012 N UA Blood) 18:40:00) [facility] HospitalNgsrqxqIOXDNSMPRS3834-22-95 23:40:00 Test Item Value Reference Range Interpretation Comments UA Nitrite (test code Negative (03/14/2012 N = UA Nitrite) 18:40:00) [facility] HospitalRfqkrqgXMZGLJDQZO5527-95-60 23:40:00 Test Item Value Reference Range Interpretation Comments UA Urobilinogen (test code = UA 0.2 0.1-1.0 N Urobilinogen) [facility]IgvblqlCMDBZTQLDJ2456-51-34 23:40:00 Test Item Value Reference Range Interpretation Comments UA Leuk Est (test Negative (03/14/2012 N code = UA Leuk Est) 18:40:00) [facility] HospitalFyondypNJOVYSPJDM4028-90-45 23:40:00 Test Item Value Reference Range Interpretation Comments UA Bili (test code = Negative *NA*(03/14/2012 UA Bili) 18:40:00) [facility] HospitalOzqwkjiTSVFLVJQQY5335-39-63 23:40:00 Test Item Value Reference Range Interpretation Comments UA Turbidity (test code = Clear (03/14/2012 N UA Turbidity) 18:40:00) [facility]qdlimcNZRWZRZSAM9408-91-74 23:40:00 Test Item Value Reference Range Interpretation Comments UA Color (test code = Yellow *NA*(03/14/2012 UA Color) 18:40:00) [facility] HospitalVrvqnqeEPRJVJFVEG9046-10-93 23:40:00 Test Item Value Reference Range Interpretation Comments UA Spec Grav (test >=1.030 A code = UA Spec Grav) *ABN*(03/14/2012 18:40:00) [facility] HospitalRekamlbGXQGDDLZCL9559-97-53 23:40:00 Test Item Value Reference Range Interpretation Comments UA Sq Epi (test code Occasional /LPF N = UA Sq Epi) (03/14/2012 18:40:00) [facility] HospitalClndermWGFIBIEEUP7259-59-88 23:40:00 Test Item Value Reference Range Interpretation Comments UA WBC (test code = UA 3-5 /HPF (03/14/2012 N WBC) 18:40:00) [facility] HospitalFezchgjWFLAAMMQIP0626-59-87 23:40:00 Test Item Value Reference Range Interpretation Comments UA Bacteria (test code Occasional /HPF N = UA Bacteria) (03/14/2012 18:40:00) [facility] HospitalFdfwzpnSMNEVQQBY9040-23-73 22:50:00 Test Item Value Reference Range Interpretation Comments S Preg (test code = S Negative *NA*(03/14/2012 Preg) 17:50:00) [facility] HospitalRwnktbmJTLTATPIZ0410-91-39 22:50:00 Test Item Value Reference Range Interpretation Comments Lipase Lvl (test code = Lipase Lvl) 45 73-393 L [facility] HospitalGuewyxoFZVKTTUDX2250-70-46 22:50:00 Test Item Value Reference Range Interpretation Comments A/G Ratio (test code = A/G Ratio) 1.2 0.7-1.6 N [facility] HospitalDzpcebdNIIUTQMVX4312-65-28 22:50:00 Test Item Value Reference Range Interpretation Comments Globulin (test code = Globulin) 3.8 2.0-4.0 N [facility] HospitalOppmwrvZNKOCZRAW0883-28-41 22:50:00 Test Item Value Reference Range Interpretation Comments B/C Ratio (test code = B/C Ratio) 21 6-25 N [facility] HospitalQiedrrkOLCEBDYEE9784-88-00 22:50:00 Test Item Value Reference Range Interpretation Comments AGAP (test code = AGAP) 16.8 10.0-20.0 N [facility] HospitalIgycdncXEPLGLZFZ3948-67-59 22:50:00 Test Item Value Reference Range Interpretation Comments Bili Total (test code = Bili Total) 1.1 0.2-1.3 N [facility] HospitalZbivequPUFLWNAXG7602-25-43 22:50:00 Test Item Value Reference Range Interpretation Comments Total Protein (test code = Total 8.2 6.4-8.4 N Protein) [facility] HospitalAgrkezqDPPQRAKRC1349-91-39 22:50:00 Test Item Value Reference Range Interpretation Comments Potassium Lvl (test code = Potassium 3.8 3.5-5.1 N Lvl) [facility] HospitalQtpmenzLJUXPNZBT8975-31-98 22:50:00 Test Item Value Reference Range Interpretation Comments Creatinine Lvl (test code = Creatinine 0.7 0.5-1.4 N Lvl) [facility] HospitalAsfcmmmWKDGMSVFP1716-09-19 22:50:00 Test Item Value Reference Range Interpretation Comments Sodium Lvl (test code = Sodium Lvl) 139 135-145 N [facility] HospitalBuglgzbPSLICPXHX5277-73-94 22:50:00 Test Item Value Reference Range Interpretation Comments Chloride Lvl (test code = Chloride Lvl) 99 95-109 N [facility] HospitalKcuggrrRRHFKUBNN2102-66-66 22:50:00 Test Item Value Reference Range Interpretation Comments CO2 (test code = CO2) 27 24-32 N [facility] HospitalRnfyjakUNTLGEVYG2066-59-13 22:50:00 Test Item Value Reference Range Interpretation Comments Glucose Lvl (test code = Glucose Lvl) 301 70-99 H [facility] HospitalOxtiqtcPOPGJGJHU9654-02-29 22:50:00 Test Item Value Reference Range Interpretation Comments BUN (test code = BUN) 15 7-22 N [facility] HospitalWurjcvuJWJIXHQSG3482-92-46 22:50:00 Test Item Value Reference Range Interpretation Comments ALT (test code = ALT) 24 See_Comment N [Auto mated message] The system which ge nerated this result transmit rohit reference range : <=65. The reference range was not used to interpr et this result as reji l/abnormal. [facility] HospitalWybiovlCRAZDZREM9078-22-82 22:50:00 Test Item Value Reference Range Interpretation Comments AST (test code = AST) 20 See_Comment N [Auto mated message] The system which ge nerated this result transmit rohit reference range : <=37. The reference range was not used to interpr et this result as reji l/abnormal. [facility] HospitalBzuzaqbGSHKAODEY2889-89-95 22:50:00 Test Item Value Reference Range Interpretation Comments Alk Phos (test code = Alk Phos) 67 39-136 N [facility] HospitalGdvejztDCRMVAXJC6774-66-91 22:50:00 Test Item Value Reference Range Interpretation Comments Albumin Lvl (test code = Albumin Lvl) 4.4 3.5-5.0 N [facility] HospitalErnixouBIEPRZKPR2013-10-02 22:50:00 Test Item Value Reference Range Interpretation Comments Calcium Lvl (test code = Calcium Lvl) 9.9 8.5-10.5 N [facility]wayEqhtvjeTCMYXMBLAS1519-20-88 22:50:00 Test Item Value Reference Range Interpretation Comments MPV (test code = MPV) 11.8 7.4-10.4 H [facility] LakewayHjbsiiiWCPAFDQVKO6260-83-91 22:50:00 Test Item Value Reference Range Interpretation Comments MCHC (test code = MCHC) 35.9 32.0-36.0 N [facility] LakewayIbarcoqSWYBULBJQI2076-56-39 22:50:00 Test Item Value Reference Range Interpretation Comments MCH (test code = MCH) 31.2 pg 27.0-31.0 H [facility] LakewayQamudmnCMKKBVYVHX4952-08-01 22:50:00 Test Item Value Reference Range Interpretation Comments Platelet (test code = Platelet) 189 133-450 N [facility] LakewaySgxcdlfNQUMBYVPRW8688-22-44 22:50:00 Test Item Value Reference Range Interpretation Comments RDW (test code = RDW) 13.1 11.5-14.5 N [facility] LakewayLfqicexLJXWLRCUDY1737-14-80 22:50:00 Test Item Value Reference Range Interpretation Comments Hct (test code = Hct) 40.7 36.0-48.0 N [facility] LakewayArrijetXYBCDMZHNV6410-94-89 22:50:00 Test Item Value Reference Range Interpretation Comments Hgb (test code = Hgb) 14.6 12.0-16.0 N [facility] LakewayEegzdhfUUEYBWEOMY7661-05-11 22:50:00 Test Item Value Reference Range Interpretation Comments MCV (test code = MCV) 87.0 81.0-99.0 N [facility] LakewayCmjlaxzTSOIMRCIJH1468-63-12 22:50:00 Test Item Value Reference Range Interpretation Comments WBC (test code = WBC) 11.7 3.7-10.4 H [facility] LakewaySbsdsmhAIAEWUMKBQ5672-54-52 22:50:00 Test Item Value Reference Range Interpretation Comments RBC (test code = RBC) 4.68 4.20-5.40 N [facility] LakewayCwomycpHAPHAWKFEX2109-83-13 22:50:00 Test Item Value Reference Range Interpretation Comments Basophils # (test code 0.0 See_Comment N [Aut omated message] The = Basophils #) system which generated this result tra nsmitted reference range : <=0.2. The reference r leo was not used to int erpret this result as normal/abnormal . [facility] LakewayFshnmujVQFLGLFMXS7149-27-04 22:50:00 Test Item Value Reference Range Interpretation Comments Basophils (test code = 0.2 See_Comment N [Aut omated message] The Basophils) system which ge nerated this result tra nsmitted reference range : <=1.0. The reference r leo was not used to int erpret this result as normal/abnormal . [facility] LakewayPhrmpqcSKNTETPROP2196-02-85 22:50:00 Test Item Value Reference Range Interpretation Comments Eosinophils # (test code 0.0 See_Comment N [A utomated message] The = Eosinophils #) system whic h generated this result tra nsmitted reference range : <=0.5. The reference r leo was not used to int erpret this result as normal/abnormal . [facility] LakewayDyrioawZALMTWRGMO2827-52-29 22:50:00 Test Item Value Reference Range Interpretation Comments Monocytes # (test code 0.4 See_Comment N [Aut omated message] The = Monocytes #) system which generated this result tra nsmitted reference range : <=0.8. The reference r leo was not used to int erpret this result as normal/abnormal . [facility] LakewayQuzwjjhYURTYWOXMV9113-20-85 22:50:00 Test Item Value Reference Range Interpretation Comments Segs-Bands # (test code = Segs-Bands #) 10.6 1.5-8.1 H [facility] LakewayCgfumaxQXQMESBEMX4190-31-81 22:50:00 Test Item Value Reference Range Interpretation Comments Lymphocytes # (test code = Lymphocytes 0.7 1.0-5.5 L #) [facility] LakewayAqyzcfmERKZEDUIDX3489-19-95 22:50:00 Test Item Value Reference Range Interpretation Comments Monocytes (test code = Monocytes) 3.4 2.0-12.0 N [facility] LakewayQozqvvxQGSWZYKOET5531-62-08 22:50:00 Test Item Value Reference Range Interpretation Comments Plt Morph (test code = Normal (03/14/2012 N Plt Morph) 17:50:00) [facility] LakewayQafbfizXEHDTGKBGT9954-05-08 22:50:00 Test Item Value Reference Range Interpretation Comments Lymphocytes (test code = Lymphocytes) 6.0 20.0-40.0 L [facility] LakewayRtalwukRHNMQWKDWA1740-02-74 22:50:00 Test Item Value Reference Range Interpretation Comments Eosinophils (test code = 0.0 See_Comment N [A utomated message] The Eosinophils) system which ge nerated this result tra nsmitted reference range : <=4.0. The reference r leo was not used to int erpret this result as normal/abnormal . [facility] LakewayRiyakswTLDQJVWVJS1763-27-52 22:50:00 Test Item Value Reference Range Interpretation Comments Segs (test code = Segs) 90.4 45.0-75.0 H [facility] LakewayBewsuzfXMJQAUUMAJ9646-44-59 22:50:00 Test Item Value Reference Range Interpretation Comments RBC Morph (test code = Normal (03/14/2012 N RBC Morph) 17:50:00) [facility] GLUCOSE BPCGPMI6444-78-88 23:43:00 Test Item Value Reference Range Interpretation Comments Gluc POC Lifscn (test code = Gluc POC 167 70-99 H Lifscn) [facility] GLUCOSE PVWDWGC5751-53-16 23:43:00 Test Item Value Reference Range Interpretation Comments Comment1 (test code = Comment1) Notify RN/MD [facility] GLUCOSE VPXKTHN0502-55-57 23:43:00 Test Item Value Reference Range Interpretation Comments Comment2 (test code = Comment2) Sliding Scale [facility] GLUCOSE RJAKDBW0683-58-48 17:40:00 Test Item Value Reference Range Interpretation Comments Gluc POC Lifscn (test code = Gluc POC 189 70-99 H Lifscn) [facility] GLUCOSE RPGXWSA2117-95-95 17:40:00 Test Item Value Reference Range Interpretation Comments Comment1 (test code = Comment1) Notify RN/ [facility] GLUCOSE DEMVRKP2772-56-61 17:40:00 Test Item Value Reference Range Interpretation Comments Comment2 (test code = Comment2) Sliding Scale [facility] GLUCOSE RTIOOTA1941-73-51 13:34:00 Test Item Value Reference Range Interpretation Comments Comment2 (test code = Comment2) Sliding Scale [facility] GLUCOSE LIHSERO8079-02-91 13:34:00 Test Item Value Reference Range Interpretation Comments Gluc POC Lifscn (test code = Gluc POC 110 70-99 H Lifscn) [facility] GLUCOSE CCVIRGI1967-13-08 13:34:00 Test Item Value Reference Range Interpretation Comments Comment1 (test code = Comment1) [facility]ATHA[facility]FfldcqxXDMPVJLGX4144-33-92 00:00:00 Test Item Value Reference Range Interpretation Comments U Preg (test code = U Negative (11/28/2011 N Preg) 19:00:00) [facility]YjkwmmtNHORXLCWGP2386-11-40 [facility]:00:00 Test Item Value Reference Range Interpretation Comments Micro? (test code = Performed (11/28/2011 N Micro?) 19:00:00) [facility] CenterOxedvjkQGZQSYJOGI5339-25-73 00:00:00 Test Item Value Reference Range Interpretation Comments UA Sq Epi (test code Occasional /LPF N = UA Sq Epi) (11/28/2011 19:00:00) [facility] HospitalYiqqzrlLVSPGCMJFA6119-40-95 00:00:00 Test Item Value Reference Range Interpretation Comments UA RBC (test None Seen See_Comment N [Automated mes pastor] code = UA RBC) (11/28/2011 The system wh ich 19:00:00) generated this result transmitted ref erence range: <=2. The reference range was not used to int erpret this result as normal/abnormal . [facility] CenterDomjogvETVIZHRMLK7314-45-19 00:00:00 Test Item Value Reference Range Interpretation Comments UA WBC (test code Occasional See_Comment [Automate d message] The = UA WBC) system which ge nerated this result tra nsmitted reference range : <=5. The reference range was not used to interpr et this result as normal/abnormal . [facility] HospitalNpwsaqsQBKCIWGPKW5933-83-20 00:00:00 Test Item Value Reference Range Interpretation Comments UA Protein (test code Negative mg/dL N = UA Protein) (11/28/2011 19:00:00) [facility] HospitalRkbzdzzHNMQZESKAY4398-34-80 00:00:00 Test Item Value Reference Range Interpretation Comments UA pH (test code = UA pH) 7.0 1 5.0-8.0 N [facility] HospitalTwsadftGRLTQQWPXE6592-94-83 00:00:00 Test Item Value Reference Range Interpretation Comments UA Spec Grav (test code = UA Spec 1.020 1 N Grav) [facility] HospitalPhgwcmxVVADYUIMRW9149-41-31 00:00:00 Test Item Value Reference Range Interpretation Comments UA Turbidity (test code = Clear (11/28/2011 N UA Turbidity) 19:00:00) [facility] HospitalUopoqlrUARXBIACEY7346-14-94 00:00:00 Test Item Value Reference Range Interpretation Comments UA Color (test code = Yellow *NA*(11/28/2011 UA Color) 19:00:00) [facility] HospitalQqvmpwjQRYVRJYNIG9635-14-52 00:00:00 Test Item Value Reference Range Interpretation Comments UA Urobilinogen (test code = UA 0.2 0.1-1.0 N Urobilinogen) [facility] HospitalAqsbbuzDYYCBZQTHI7240-64-71 00:00:00 Test Item Value Reference Range Interpretation Comments UA Blood (test code = Negative (11/28/2011 N UA Blood) 19:00:00) [facility] HospitalWsbxeylJYOXTCEUSC7163-27-01 00:00:00 Test Item Value Reference Range Interpretation Comments UA Bili (test code = Negative *NA*(11/28/2011 UA Bili) 19:00:00) [facility] HospitalQwximcvBBFGCGKRQD8900-13-62 00:00:00 Test Item Value Reference Range Interpretation Comments UA Ketones (test code = >=80 mg/dL A UA Ketones) *ABN*(11/28/2011 19:00:00) [facility] HospitalDvupcduDAILZKEJRI0268-94-90 00:00:00 Test Item Value Reference Range Interpretation Comments UA Glucose (test code = >=1000 mg/dL A UA Glucose) *ABN*(11/28/2011 19:00:00) [facility] HospitalAhaoqpnYEDHCQQCFJ2265-65-37 00:00:00 Test Item Value Reference Range Interpretation Comments UA Nitrite (test code Negative (11/28/2011 N = UA Nitrite) 19:00:00) [facility] CenterZogcldfOOIDUQUWCM1811-91-99 00:00:00 Test Item Value Reference Range Interpretation Comments UA Leuk Est (test Negative (11/28/2011 N code = UA Leuk Est) 19:00:00) [facility] HospitalGdvmnojZMEGQNLLV8180-90-77 20:41:00 Test Item Value Reference Range Interpretation Comments pO2 Roberth (test code = pO2 Roberth) 60 20-49 H [facility] HospitalZwfapyyMJHODWDDA8047-54-02 20:41:00 Test Item Value Reference Range Interpretation Comments pCO2 Roberth (test code = pCO2 Roberth) 41 38-52 N [facility] HospitalKphheemILIGTFPAV3583-06-36 20:41:00 Test Item Value Reference Range Interpretation Comments pH Roberth (test code = pH Roberth) 7.45 7.28-7.42 H [facility] HospitalGawgejyJMGTSMWGO4809-20-09 20:41:00 Test Item Value Reference Range Interpretation Comments Temp Roberth (test code = Temp Roberth) 37.0 [facility] HospitalPyntqbmDEARMCOMG1142-20-80 20:41:00 Test Item Value Reference Range Interpretation Comments O2 Sat Roberth (test code = O2 Sat Roberth) 92.0 40.0-70.0 H [facility] HospitalVwaozkoMNVRDRQEV9218-46-08 20:41:00 Test Item Value Reference Range Interpretation Comments BE Roberth (test code = 4 See_Comment H [Automa rohit message] The BE Roberth) system which ge nerated this result transmit rohit reference range : <=2. The reference range was not used to interpr et this result as reji l/abnormal. [facility] HospitalBrdpqckRJXYLBESM1813-19-91 20:41:00 Test Item Value Reference Range Interpretation Comments HCO3 Roberth (test code = HCO3 Roberth) 28.5 22.0-26.0 H [facility] HospitalVdssijjIHKPDMVLC7772-91-70 20:00:00 Test Item Value Reference Range Interpretation Comments Lactic Acid Lvl (test code = Lactic 1.6 0.5-2.2 N Acid Lvl) [facility] HospitalVojouzxGAGEMKFMP8296-75-15 20:00:00 Test Item Value Reference Range Interpretation Comments Lipase Lvl (test code = Lipase Lvl) 125 73-393 N [facility] HospitalYywaglyUCQDHVUEZ0245-42-00 20:00:00 Test Item Value Reference Range Interpretation Comments Albumin Lvl (test code = Albumin Lvl) 4.2 3.5-5.0 N [facility] HospitalSorswbgZPTLHKWBC2928-67-28 20:00:00 Test Item Value Reference Range Interpretation Comments CO2 (test code = CO2) 23 24-32 L [facility] HospitalVrtxtocWCQZUGFYG5475-56-42 20:00:00 Test Item Value Reference Range Interpretation Comments Chloride Lvl (test code = Chloride Lvl) 98 95-109 N [facility] HospitalHgafzmjIFOMHRDZS4859-41-64 20:00:00 Test Item Value Reference Range Interpretation Comments Potassium Lvl (test code = Potassium 3.8 3.5-5.1 N Lvl) [facility] HospitalFcqchrbBICWJQQSA3326-61-01 20:00:00 Test Item Value Reference Range Interpretation Comments Sodium Lvl (test code = Sodium Lvl) 138 135-145 N [facility] HospitalUbcrimzYRVZFMQXR3575-36-20 20:00:00 Test Item Value Reference Range Interpretation Comments Creatinine Lvl (test code = Creatinine 0.7 0.5-1.4 N Lvl) [facility] HospitalBcalcqzCEWQQMTDN3394-82-42 20:00:00 Test Item Value Reference Range Interpretation Comments BUN (test code = BUN) 9 7-22 N [facility] HospitalZbohildZLEFMCBOE1600-29-63 20:00:00 Test Item Value Reference Range Interpretation Comments Glucose Lvl (test code = Glucose Lvl) 269 70-99 H [facility] HospitalTpdhhonNYOGUDCQZ5702-18-59 20:00:00 Test Item Value Reference Range Interpretation Comments B/C Ratio (test code = B/C Ratio) 13 6-25 N [facility] HospitalHzwoyefPPQGOTQDD6321-00-48 20:00:00 Test Item Value Reference Range Interpretation Comments AGAP (test code = AGAP) 20.8 10.0-20.0 H [facility] HospitalGarunwcPTIVXMHYJ9790-01-80 20:00:00 Test Item Value Reference Range Interpretation Comments Calcium Lvl (test code = Calcium Lvl) 9.3 8.5-10.5 N [facility] HospitalJseuhhlNMCMZOIUA6112-41-13 20:00:00 Test Item Value Reference Range Interpretation Comments Total Protein (test code = Total 6.7 6.4-8.4 N Protein) [facility] HospitalSysjhzaCACZTAWQG4810-63-44 20:00:00 Test Item Value Reference Range Interpretation Comments A/G Ratio (test code = A/G Ratio) 1.7 0.7-1.6 H [facility] HospitalDypumqtWYOYMNZSH1391-69-35 20:00:00 Test Item Value Reference Range Interpretation Comments Globulin (test code = Globulin) 2.5 2.0-4.0 N [facility] HospitalFwcwgkiNLMCBBETW9891-23-35 20:00:00 Test Item Value Reference Range Interpretation Comments AST (test code = AST) 18 See_Comment N [Auto mated message] The system which ge nerated this result transmit rohit reference range : <=37. The reference range was not used to interpr et this result as reji l/abnormal. [facility] HospitalHcijkosSCFZJRWVZ9159-08-84 20:00:00 Test Item Value Reference Range Interpretation Comments Alk Phos (test code = Alk Phos) 62 39-136 N [facility] HospitalDcavrokYLPSXRDPI0438-11-01 20:00:00 Test Item Value Reference Range Interpretation Comments ALT (test code = ALT) 32 See_Comment N [Auto mated message] The system which ge nerated this result transmit rohit reference range : <=65. The reference range was not used to interpr et this result as reji l/abnormal. [facility] HospitalUewblwlSRXDBWVFB3547-16-80 20:00:00 Test Item Value Reference Range Interpretation Comments Bili Total (test code = Bili Total) 0.7 0.2-1.3 N [facility]wayQouppasSQTRTYQRUN8386-32-87 20:00:00 Test Item Value Reference Range Interpretation Comments Anisocyte (test code = 1+ *ABN*(11/28/2011 A Anisocyte) 15:00:00) [facility]wayQqhkcpzQMDSOKFYRR0170-39-99 20:00:00 Test Item Value Reference Range Interpretation Comments Monocytes # (test code 0.1 See_Comment N [Aut omated message] The = Monocytes #) system which generated this result tra nsmitted reference range : <=0.8. The reference r leo was not used to int erpret this result as normal/abnormal . [facility] LakewayUworkjpOJFLQDKIRR3270-26-55 20:00:00 Test Item Value Reference Range Interpretation Comments Eosinophils # (test code 0.0 See_Comment N [A utomated message] The = Eosinophils #) system whic h generated this result tra nsmitted reference range : <=0.5. The reference r leo was not used to int erpret this result as normal/abnormal . [facility] LakewayAebrnheDTZMKMYZJL6325-35-53 20:00:00 Test Item Value Reference Range Interpretation Comments Basophils # (test code 0.0 See_Comment N [Aut omated message] The = Basophils #) system which generated this result tra nsmitted reference range : <=0.2. The reference r leo was not used to int erpret this result as normal/abnormal . [facility] LakewayHkbftguEJGMMAAOYH4997-91-68 20:00:00 Test Item Value Reference Range Interpretation Comments Neut Vac (test code = Slight *ABN*(11/28/2011 A Neut Vac) 15:00:00) [facility] LakewayMmukxyuGXCGUESJBM5869-01-27 20:00:00 Test Item Value Reference Range Interpretation Comments Large Plt (test code = Slight *ABN*(11/28/2011 A Large Plt) 15:00:00) [facility] LakewayMtlocxlVAWUMEOFTU3215-24-58 20:00:00 Test Item Value Reference Range Interpretation Comments Segs-Bands # (test code = Segs-Bands #) 5.7 1.5-8.1 N [facility] LakewayXjvhoqhVENKXBREAX5178-21-09 20:00:00 Test Item Value Reference Range Interpretation Comments Lymphocytes # (test code = Lymphocytes 0.8 1.0-5.5 L #) [facility] LakewayTfqiflyTDYOYFQZDD5000-05-53 20:00:00 Test Item Value Reference Range Interpretation Comments Eosinophils (test code = 0.2 See_Comment N [A utomated message] The Eosinophils) system which ge nerated this result tra nsmitted reference range : <=4.0. The reference r leo was not used to int erpret this result as normal/abnormal . [facility] LakewayBvlfpchJRHGXVLGKN8512-77-44 20:00:00 Test Item Value Reference Range Interpretation Comments Basophils (test code = 0.0 See_Comment N [Aut omated message] The Basophils) system which ge nerated this result tra nsmitted reference range : <=1.0. The reference r leo was not used to int erpret this result as normal/abnormal . [facility] LakewayWxrhkslKQKUXUADAW3841-87-15 20:00:00 Test Item Value Reference Range Interpretation Comments Monocytes (test code = Monocytes) 1.9 2.0-12.0 L [facility] [place]XhrlrhdHDDEBTXPBT1067-98-28 20:00:00 Test Item Value Reference Range Interpretation Comments Segs (test code = Segs) 86.2 45.0-75.0 H [facility] LakewayIdilpkuZHZTIQEXWU3188-93-23 20:00:00 Test Item Value Reference Range Interpretation Comments Lymphocytes (test code = Lymphocytes) 11.7 20.0-40.0 L [facility] LakewayAxosobbHAVBBAHAZF9009-81-56 20:00:00 Test Item Value Reference Range Interpretation Comments MPV (test code = MPV) 10.8 7.4-10.4 H [facility] LakewayRdggaldDIFITEHDZJ5054-42-86 20:00:00 Test Item Value Reference Range Interpretation Comments Platelet (test code = Platelet) 161 133-450 N [facility] LakewayUjdhdvjKSWVGHEWZL6991-10-19 20:00:00 Test Item Value Reference Range Interpretation Comments MCHC (test code = MCHC) 35.6 32.0-36.0 N [facility] LakewayItsnbbyVASKMLZBQL3192-13-32 20:00:00 Test Item Value Reference Range Interpretation Comments RDW (test code = RDW) 12.4 11.5-14.5 N [facility] LakewayAaornzpKFIUTDUCMC8348-37-33 20:00:00 Test Item Value Reference Range Interpretation Comments MCH (test code = MCH) 30.7 pg 27.0-31.0 N [facility] LakewayLgosnlzFBAKTSQRVD8264-03-90 20:00:00 Test Item Value Reference Range Interpretation Comments MCV (test code = MCV) 86.1 81.0-99.0 N [facility] LakewayFeijwfrLJOJWFPMNX8575-99-03 20:00:00 Test Item Value Reference Range Interpretation Comments Hct (test code = Hct) 33.6 36.0-48.0 L [facility] LakewayQtlweubFOFIEXZURQ3834-24-31 20:00:00 Test Item Value Reference Range Interpretation Comments Hgb (test code = Hgb) 12.0 12.0-16.0 N [facility] LakewayZnduxwgZUXYSSIZGK1411-71-28 20:00:00 Test Item Value Reference Range Interpretation Comments RBC (test code = RBC) 3.90 4.20-5.40 L [facility] LakewayJxidqzpKNJERZWGEC0832-75-40 20:00:00 Test Item Value Reference Range Interpretation Comments WBC (test code = WBC) 6.6 3.7-10.4 N [facility] HospitalUokktrkKKTMUZMAU2613-02-66 19:51:00 Test Item Value Reference Range Interpretation Comments UDS Note (test code = See Note UDS Note) 5*NA*(11/28/2011 14:51:00) [facility] HospitalZkhgeqeGSJZKPQUC0400-23-67 19:51:00 Test Item Value Reference Range Interpretation Comments U Phencyc Scr (test Negative code = U Phencyc Scr) *NA*(11/28/2011 14:51:00) [facility] HospitalPzvasolTOEZTPHMI1202-21-59 19:51:00 Test Item Value Reference Range Interpretation Comments U Kelly Scr (test code Negative *NA*(11/28/2011 = U Kelly Scr) 14:51:00) [facility] HospitalBzlkldqKQWGYKFGA5477-04-37 19:51:00 Test Item Value Reference Range Interpretation Comments U Amph Scr (test code Negative *NA*(11/28/2011 = U Amph Scr) 14:51:00) [facility] HospitalOubicwzTTKVZFDZG2921-81-49 19:51:00 Test Item Value Reference Range Interpretation Comments U Opiate Scr (test Negative code = U Opiate Scr) *NA*(11/28/2011 14:51:00) [facility] HospitalCrytsonCCUGDVAMK5350-84-62 19:51:00 Test Item Value Reference Range Interpretation Comments U Cocaine Scr (test Negative code = U Cocaine Scr) *NA*(11/28/2011 14:51:00) [facility] HospitalLzxfqafYKNWJAXFH7882-91-33 19:51:00 Test Item Value Reference Range Interpretation Comments U Cannab Scr (test Negative code = U Cannab Scr) *NA*(11/28/2011 14:51:00) [facility] HospitalNrdckwpGBTOCMQVJ2855-99-55 19:51:00 Test Item Value Reference Range Interpretation Comments U Benzodia Scr (test Negative code = U Benzodia Scr) *NA*(11/28/2011 14:51:00) [facility] GLUCOSE GCYYBHR0881-80-75 16:20:00 Test Item Value Reference Range Interpretation Comments Comment1 (test code = Comment1) Ravi RN/ [facility] GLUCOSE [id number] 16:20:00 Test Item Value Reference Range Interpretation Comments Gluc POC Lifscn (test code = Gluc POC 328 70-99 H Lifscn) [facility] HospitalHignuxzPAZUVFZIT6339-33-46 15:30:00 Test Item Value Reference Range Interpretation Comments U Preg (test code = U Negative (09/18/2011 N Preg) 10:30:00) [facility] CenterEhblmynBUZRCFIAPS3495-17-40 15:30:00 Test Item Value Reference Range Interpretation Comments UA WBC (test code = UA None Seen (09/18/2011 N WBC) 10:30:00) [facility] CenterVcfjziaNRGPFGKZPU8622-35-20 15:30:00 Test Item Value Reference Range Interpretation Comments UA RBC (test None Seen See_Comment N [Automated mes pastor] code = UA RBC) (09/18/2011 The system [employer] ich 10:30:00) generated this result transmitted ref erence range: <=2. The reference range was not used to int erpret this result as normal/abnormal . [facility] HospitalYtdfjmoBCACJBKEKL8827-48-06 15:30:00 Test Item Value Reference Range Interpretation Comments UA Bacteria (test code = None Seen (09/18/2011 N UA Bacteria) 10:30:00) [facility] CenterNrqirkpRCFUTVLZGX2208-35-18 15:30:00 Test Item Value Reference Range Interpretation Comments UA Amorph Destiny (test Few /HPF A code = UA Amorph Destiny) *ABN*(09/18/2011 10:30:00) [facility] HospitalEoolbovVHUUVWNWAU4996-02-98 15:30:00 Test Item Value Reference Range Interpretation Comments Micro? (test code = Performed (09/18/2011 N Micro?) 10:30:00) [facility] HospitalWgyamggWJTEQDYELM1197-37-42 15:30:00 Test Item Value Reference Range Interpretation Comments UA Sq Epi (test code = Rare /LPF (09/18/2011 N UA Sq Epi) 10:30:00) [facility] CenterRsdxjppFZLGHMALBE8454-51-33 15:30:00 Test Item Value Reference Range Interpretation Comments UA Ketones (test code = 15 mg/dL A UA Ketones) *ABN*(09/18/2011 10:30:00) [facility] HospitalFtslnysHJELIFKVII1431-09-66 15:30:00 Test Item Value Reference Range Interpretation Comments UA Glucose (test code = >=1000 mg/dL A UA Glucose) *ABN*(09/18/2011 10:30:00) [facility] HospitalObpdbeqWQSYMOQNBR1983-82-40 15:30:00 Test Item Value Reference Range Interpretation Comments UA Protein (test code = Trace A UA Protein) *ABN*(09/18/2011 10:30:00) [facility] HospitalXtlqdilGBYYSXAVIU4605-08-04 15:30:00 Test Item Value Reference Range Interpretation Comments UA Urobilinogen (test code = UA 0.2 0.1-1.0 N Urobilinogen) [facility] HospitalXazsjhyWKHJBAUQFA0423-14-66 15:30:00 Test Item Value Reference Range Interpretation Comments UA Blood (test code = Negative (09/18/2011 N UA Blood) 10:30:00) [facility] HospitalDgwkhncVORMXVGKJT8051-82-92 15:30:00 Test Item Value Reference Range Interpretation Comments UA Bili (test code = Negative *NA*(09/18/2011 UA Bili) 10:30:00) [facility] HospitalRwcpingDATGBGUCZA5464-79-32 15:30:00 Test Item Value Reference Range Interpretation Comments UA Leuk Est (test Negative (09/18/2011 N code = UA Leuk Est) 10:30:00) [facility] CenterThpmywwTJOWZUVORO7332-66-10 15:30:00 Test Item Value Reference Range Interpretation Comments UA Nitrite (test code Negative (09/18/2011 N = UA Nitrite) 10:30:00) [facility] HospitalOuvfkotLDALIXNABO5602-62-73 15:30:00 Test Item Value Reference Range Interpretation Comments UA pH (test code = UA pH) 7.5 1 5.0-8.0 N [facility] HospitalSuestsbTFEKMBDQCZ6952-20-80 15:30:00 Test Item Value Reference Range Interpretation Comments UA Spec Grav (test code = UA Spec 1.010 1 N Grav) [facility] CenterWiczsmeSBIMOMWYFU5619-12-00 15:30:00 Test Item Value Reference Range Interpretation Comments UA Turbidity (test code Slight Cloudy N = UA Turbidity) (09/18/2011 10:30:00) [facility] HospitalPzoxzwwOEVLQKDFHX6137-75-21 15:30:00 Test Item Value Reference Range Interpretation Comments UA Color (test code = Yellow *NA*(09/18/2011 UA Color) 10:30:00) [facility] CenterZsvjwmgYBQMCKCCK4289-17-41 14:07:00 Test Item Value Reference Range Interpretation Comments Phosphorus (test code = Phosphorus) 4.4 2.5-4.5 N [facility] HospitalOellgsnIMFOLHFEV9511-08-73 14:07:00 Test Item Value Reference Range Interpretation Comments Magnesium Lvl (test code = Magnesium 1.6 1.8-2.4 L Lvl) [facility] CenterS[facility] GLU[facility] QDWUXXY7225-97-47 14:01:00 Test Item Value Reference Range Interpretation Comments Gluc POC Lifscn (test code = Gluc POC no gt 70-99 A Lifscn) [facility] HospitalEmacyhjFAVPNMYYS5189-76-22 13:52:00 Test Item Value Reference Range Interpretation Comments pO2 Roberth (test code = pO2 Roberth) 24 20-49 N [facility] HospitalQievbwoPZONMPPTH3240-81-94 13:52:00 Test Item Value Reference Range Interpretation Comments HCO3 Roberth (test code = HCO3 Roberth) 32.0 22.0-26.0 H [facility] HospitalRonlnrrXKKVJSYMY0684-63-97 13:52:00 Test Item Value Reference Range Interpretation Comments pCO2 Roberth (test code = pCO2 Roberth) 44 38-52 N [facility] HospitalVprigubKXZQQCJHD4082-40-78 13:52:00 Test Item Value Reference Range Interpretation Comments BE Roberth (test code = 7 See_Comment H [Automa rohit message] The BE Roberth) system which ge nerated this result transmit rohit reference range : <=2. The reference range was not used to interpr et this result as reji l/abnormal. [facility] HospitalIsnyvxhBJFCPJMQN0082-38-34 13:52:00 Test Item Value Reference Range Interpretation Comments O2 Sat Roberth (test code = O2 Sat Roberth) 48.0 40.0-70.0 N [facility] HospitalEpfzchrXIQLNQRLD3614-64-66 13:52:00 Test Item Value Reference Range Interpretation Comments Temp Roberth (test code = Temp Roberth) 37.0 [facility] HospitalQmqylswMFAPKPUWN9554-24-12 13:52:00 Test Item Value Reference Range Interpretation Comments pH Roberth (test code = pH Roberth) 7.47 7.28-7.42 H [facility] HospitalJawvxwuXOSKTSAFQ0025-81-37 13:52:00 Test Item Value Reference Range Interpretation Comments Calcium Lvl (test code = Calcium Lvl) 10.1 8.5-10.5 N [facility] HospitalPemzslbJMUQWZBEV8612-27-58 13:52:00 Test Item Value Reference Range Interpretation Comments Chloride Lvl (test code = Chloride Lvl) 92 95-109 L [facility] HospitalXtyjvrsEAXGLVAQT7323-66-93 13:52:00 Test Item Value Reference Range Interpretation Comments CO2 (test code = CO2) 30 24-32 N [facility] HospitalXdvzzywGEFKWWEXP5569-63-18 13:52:00 Test Item Value Reference Range Interpretation Comments Potassium Lvl (test code = Potassium 3.5 3.5-5.1 N Lvl) [facility] HospitalCmuoupfPCTNLQVHY1229-28-32 13:52:00 Test Item Value Reference Range Interpretation Comments Sodium Lvl (test code = Sodium Lvl) 133 135-145 L [facility] HospitalUuehpgnGLQIKFUDA9196-68-08 13:52:00 Test Item Value Reference Range Interpretation Comments Creatinine Lvl (test code = Creatinine 1.3 0.5-1.4 N Lvl) [facility] HospitalRlbsjetSFNZODOSL5693-36-43 13:52:00 Test Item Value Reference Range Interpretation Comments Glucose Lvl (test code = Glucose Lvl) 383 70-99 H [facility] HospitalYtwkpcgLIKJYMFIG7019-19-51 13:52:00 Test Item Value Reference Range Interpretation Comments BUN (test code = BUN) 17 7-22 N [facility] HospitalDxhciaxQTTZKBGLK5578-09-21 13:52:00 Test Item Value Reference Range Interpretation Comments AGAP (test code = AGAP) 14.5 10.0-20.0 N [facility] LakewayYjnmpwiYVRFNPAIOS6225-02-53 13:52:00 Test Item Value Reference Range Interpretation Comments MPV (test code = MPV) 12.0 7.4-10.4 H [facility] LakewayTqvjubbNHJSODURRN6896-29-18 13:52:00 Test Item Value Reference Range Interpretation Comments Platelet (test code = Platelet) 226 133-450 N [facility] LakewayXnwdnmtSJSXULHEWA3147-27-32 13:52:00 Test Item Value Reference Range Interpretation Comments MCHC (test code = MCHC) 33.7 32.0-36.0 N [facility] LakewayGrorzgpQHMLQZOPLZ0220-42-18 13:52:00 Test Item Value Reference Range Interpretation Comments MCH (test code = MCH) 28.5 pg 27.0-31.0 N [facility] LakewayCqqxmnhSAPHWPEUYF6157-63-55 13:52:00 Test Item Value Reference Range Interpretation Comments RDW (test code = RDW) 15.1 11.5-14.5 H [facility] LakewayFfzycspIKSNLJNRFP6279-02-37 13:52:00 Test Item Value Reference Range Interpretation Comments MCV (test code = MCV) 84.6 81.0-99.0 N [facility] LakewayLqpqfxbKSKAFYDKAM3127-04-75 13:52:00 Test Item Value Reference Range Interpretation Comments Hct (test code = Hct) 36.4 36.0-48.0 N [facility] LakewayJsytmmaTVBOECSUIR9825-66-75 13:52:00 Test Item Value Reference Range Interpretation Comments Hgb (test code = Hgb) 12.3 12.0-16.0 N [facility] LakewayGmfrmmhADRECBXEYI5493-88-86 13:52:00 Test Item Value Reference Range Interpretation Comments RBC (test code = RBC) 4.30 4.20-5.40 N [facility] LakewayGobbzlvBJMTSYGEPF1938-81-79 13:52:00 Test Item Value Reference Range Interpretation Comments WBC (test code = WBC) 11.7 3.7-10.4 H [facility] LakewaySaooylvVTSRUBQQRL7702-12-45 13:52:00 Test Item Value Reference Range Interpretation Comments Monocytes (test code = Monocytes) 2.9 2.0-12.0 N [facility] LakewayOhlzhecPXNKQEIKMW4748-60-79 13:52:00 Test Item Value Reference Range Interpretation Comments Eosinophils (test code = 0.2 See_Comment N [A utomated message] The Eosinophils) system which ge nerated this result tra nsmitted reference range : <=4.0. The reference r leo was not used to int erpret this result as normal/abnormal . [facility] LakewayJvkaemqFPQPOONUHR8912-79-84 13:52:00 Test Item Value Reference Range Interpretation Comments Basophils (test code = 0.0 See_Comment N [Aut omated message] The Basophils) system which ge nerated this result tra nsmitted reference range : <=1.0. The reference r leo was not used to int erpret this result as normal/abnormal . [facility] LakewayEdbkydxGOHKUXVQSD4855-49-64 13:52:00 Test Item Value Reference Range Interpretation Comments Eosinophils # (test code 0.0 See_Comment N [A utomated message] The = Eosinophils #) system whic h generated this result tra nsmitted reference range : <=0.5. The reference r leo was not used to int erpret this result as normal/abnormal . [facility] LakewayBqcqvvuQBACNVUHHB7588-29-44 13:52:00 Test Item Value Reference Range Interpretation Comments Monocytes # (test code 0.3 See_Comment N [Aut omated message] The = Monocytes #) system which generated this result tra nsmitted reference range : <=0.8. The reference r leo was not used to int erpret this result as normal/abnormal . [facility] LakewayDjrlpqvLMXJCVTTDY8382-41-14 13:52:00 Test Item Value Reference Range Interpretation Comments Segs (test code = Segs) 92.0 45.0-75.0 H [facility] LakewayJfixfqgLJYLIKHASY8701-95-46 13:52:00 Test Item Value Reference Range Interpretation Comments Lymphocytes (test code = Lymphocytes) 4.9 20.0-40.0 L [facility] LakewayMvunugcANJFMYYVZI1947-64-29 13:52:00 Test Item Value Reference Range Interpretation Comments Spherocyte (test code = Rare A Spherocyte) *ABN*(09/18/2011 08:52:00) [facility] LakewayLsvdzrpUTFWVTFVCN1004-30-76 13:52:00 Test Item Value Reference Range Interpretation Comments Large Plt (test code = Slight *ABN*(09/18/2011 A Large Plt) 08:52:00) [facility] LakewayZfctqxbFYHLCSXNPM9252-53-20 13:52:00 Test Item Value Reference Range Interpretation Comments Microcyte (test code = 1+ *ABN*(09/18/2011 A Microcyte) 08:52:00) [facility] LakewayMltvjyxLYHJGYOLJB7460-89-98 13:52:00 Test Item Value Reference Range Interpretation Comments Schistocyte (test code = Schistocyte) Rare [facility] LakewayOrroqreOYPOBBSDLY0583-08-23 13:52:00 Test Item Value Reference Range Interpretation Comments Macrocyte (test code = 1+ *ABN*(09/18/2011 A Macrocyte) 08:52:00) [facility] LakewayAdjmldiAOLRIXXDQR2101-66-75 13:52:00 Test Item Value Reference Range Interpretation Comments Lymphocytes # (test code = Lymphocytes 0.6 1.0-5.5 L #) [facility] LakewayEmarkwiJJAEBCXCWS1857-96-56 13:52:00 Test Item Value Reference Range Interpretation Comments Segs-Bands # (test code = Segs-Bands #) 10.8 1.5-8.1 H [facility] LakewayTcpfpnxLZOESEKGMO9399-75-93 13:52:00 Test Item Value Reference Range Interpretation Comments Basophils # (test code 0.0 See_Comment N [Aut omated message] The = Basophils #) system which generated this result tra nsmitted reference range : <=0.2. The reference r leo was not used to int erpret this result as normal/abnormal . [facility] CenterSywnlobIWAPMMHIER9852-26-00 13:52:00 Test Item Value Reference Range Interpretation Comments Anisocyte (test code = 1+ *ABN*(09/18/2011 A Anisocyte) 08:52:00) [facility]YoefinuENAOKUMCYH8830-05-06 13:52:00 Test Item Value Reference Range Interpretation Comments CDC-HIV 1/2 Ab (test Negative *NA*(09/18/2011 code = CDC-HIV 1/2 08:52:00) Ab) [facility] GLUCOSE QJQFNDP0603-79-44 17:34:00 Test Item Value Reference Range Interpretation Comments Gluc POC Lifscn (test code = Gluc POC 215 70-99 H Lifscn) [facility] GLUCOSE IELBDCI0634-97-95 17:34:00 Test Item Value Reference Range Interpretation Comments Comment1 (test code = Comment1) Notify RN/MD [facility] GLUCOSE EHNOLXR1806-84-35 11:43:00 Test Item Value Reference Range Interpretation Comments Comment1 (test code = Comment1) Notify RN/MD [facility] GLUCOSE TTJZHSO9844-59-18 11:43:00 Test Item Value Reference Range Interpretation Comments Gluc POC Lifscn (test code = Gluc POC 91 65-110 N Lifscn) [facility] GLUCOSE DBLXIOL8677-83-26 02:45:00 Test Item Value Reference Range Interpretation Comments Comment1 (test code = Comment1) Notify RN/MD [facility] GLUCOSE EWFNDRM3564-16-44 02:45:00 Test Item Value Reference Range Interpretation Comments Gluc POC Lifscn (test code = Gluc POC 148 65-110 H Lifscn) [facility] CenterWkepmjmBEKJUQGNW9830-40-01 08:47:00 Test Item Value Reference Range Interpretation Comments Sodium Lvl (test code = Sodium Lvl) 143 135-145 N [facility] HospitalAtxnqdcQOUAFKWSL1417-86-34 08:47:00 Test Item Value Reference Range Interpretation Comments Glucose Lvl (test code = Glucose Lvl) 105 [facility] HospitalZaodiojNQQZZUTGL2920-35-43 08:47:00 Test Item Value Reference Range Interpretation Comments CO2 (test code = CO2) 29 24-32 N [facility] HospitalEiokjdrUQFEBFEFC8542-49-32 08:47:00 Test Item Value Reference Range Interpretation Comments Chloride Lvl (test code = Chloride Lvl) 103 95-109 N [facility] HospitalTllrbkeDGRTFPPOW3020-18-07 08:47:00 Test Item Value Reference Range Interpretation Comments BUN (test code = BUN) 10 7-22 N [facility] HospitalKumrjbsNQZKKKBLV0897-58-49 08:47:00 Test Item Value Reference Range Interpretation Comments Potassium Lvl (test code = Potassium 3.8 3.5-5.1 N Lvl) [facility] HospitalEqkvgcdTFXSCHVKQ0917-57-42 08:47:00 Test Item Value Reference Range Interpretation Comments Creatinine Lvl (test code = Creatinine 0.6 0.5-1.4 N Lvl) [facility] HospitalQvdkglqPZOXDZRTZ2179-65-81 08:47:00 Test Item Value Reference Range Interpretation Comments Calcium Lvl (test code = Calcium Lvl) 8.5 8.5-10.5 N [facility] HospitalGckfuuzAMZWLWOXL2339-46-09 08:47:00 Test Item Value Reference Range Interpretation Comments AGAP (test code = AGAP) 14.8 10.0-20.0 N [facility] LakewayKltbrbnOFKTTWWGOP0226-81-02 08:47:00 Test Item Value Reference Range Interpretation Comments MCH (test code = MCH) 28.9 pg 27.0-31.0 N [facility] LakewayCxttwwcOCPMNBFWLL7623-56-26 08:47:00 Test Item Value Reference Range Interpretation Comments MCV (test code = MCV) 82.1 81.0-99.0 N [facility] LakewayBukqmepGOCFDHJBJQ5914-57-55 08:47:00 Test Item Value Reference Range Interpretation Comments Hct (test code = Hct) 25.9 36.0-48.0 L [facility] LakewayAsapipuLALKDJZMQB6117-84-57 08:47:00 Test Item Value Reference Range Interpretation Comments Platelet (test code = Platelet) 233 133-450 N [facility] LakewayMnwfbmrZEWVNAWHHF8322-92-56 08:47:00 Test Item Value Reference Range Interpretation Comments RDW (test code = RDW) 14.5 11.5-14.5 N [facility] LakewayTqzhailYXTGFHUHMO7861-18-39 08:47:00 Test Item Value Reference Range Interpretation Comments MCHC (test code = MCHC) 35.2 32.0-36.0 N [facility] LakewayQtdnajzACGBQDMCQX9824-98-41 08:47:00 Test Item Value Reference Range Interpretation Comments Hgb (test code = Hgb) 9.1 12.0-16.0 L [facility] LakewayCsqrsycEKAOVPABHF6063-35-39 08:47:00 Test Item Value Reference Range Interpretation Comments RBC (test code = RBC) 3.15 4.20-5.40 L [facility] LakewayRgpkddhPUWILJBOQD8767-11-13 08:47:00 Test Item Value Reference Range Interpretation Comments MPV (test code = MPV) 9.0 7.4-10.4 N [facility] LakewayFjmwdkiSNCWQJIXGW7253-37-29 08:47:00 Test Item Value Reference Range Interpretation Comments WBC (test code = WBC) 6.3 3.7-10.4 N [facility] LakewayPgtoehsCSKPNTVOXJ2510-60-83 08:47:00 Test Item Value Reference Range Interpretation Comments Eosinophils # (test code 0.0 See_Comment N [A utomated message] The = Eosinophils #) system whic h generated this result tra nsmitted reference range : <=0.5. The reference r leo was not used to int erpret this result as normal/abnormal . [facility] LakewayDnqddetNYRFTUYYUT5730-61-90 08:47:00 Test Item Value Reference Range Interpretation Comments Basophils # (test code 0.0 See_Comment N [Aut omated message] The = Basophils #) system which generated this result tra nsmitted reference range : <=0.2. The reference r leo was not used to int erpret this result as normal/abnormal . [facility] LakewayDwsoapoUONHFIPZXP1148-99-36 08:47:00 Test Item Value Reference Range Interpretation Comments Segs-Bands # (test code = Segs-Bands #) 3.8 1.5-8.1 N [facility] LakewayDrsniwcOKWLLBGAHA1484-27-77 08:47:00 Test Item Value Reference Range Interpretation Comments Lymphocytes # (test code = Lymphocytes 2.0 1.0-5.5 N #) [facility] LakewayKvjhgqsYULETTCGWB4211-46-95 08:47:00 Test Item Value Reference Range Interpretation Comments Basophils (test code = 0.5 See_Comment N [Aut omated message] The Basophils) system which ge nerated this result tra nsmitted reference range : <=1.0. The reference r leo was not used to int erpret this result as normal/abnormal . [facility] LakewayXipldlgYUCOYVDOCV9873-88-50 08:47:00 Test Item Value Reference Range Interpretation Comments Eosinophils (test code = 0.7 See_Comment N [A utomated message] The Eosinophils) system which ge nerated this result tra nsmitted reference range : <=4.0. The reference r leo was not used to int erpret this result as normal/abnormal . [facility] LakewayBmcanyoISAGDUALIW5685-98-27 08:47:00 Test Item Value Reference Range Interpretation Comments Monocytes (test code = Monocytes) 6.2 2.0-12.0 N [facility] LakewaySygtbsfXZFLNFFXKH2921-58-10 08:47:00 Test Item Value Reference Range Interpretation Comments Segs (test code = Segs) 61.1 45.0-75.0 N [facility]wayQtroemaMSZSQCBXSU1265-79-27 08:47:00 Test Item Value Reference Range Interpretation Comments Lymphocytes (test code = Lymphocytes) 31.5 20.0-40.0 N [facility]wayQfcccjvIHPQXTWCNT3095-10-79 08:47:00 Test Item Value Reference Range Interpretation Comments Monocytes # (test code 0.4 See_Comment N [Aut omated message] The = Monocytes #) system which generated this result tra nsmitted reference range : <=0.8. The reference r leo was not used to int erpret this result as normal/abnormal . [facility] HospitalHcpysekRSRQOOYVP1008-74-36 10:54:00 Test Item Value Reference Range Interpretation Comments CO2 (test code = CO2) 27 24-32 N [facility] HospitalDkkxmvkNEZRPGTXP0697-65-87 10:54:00 Test Item Value Reference Range Interpretation Comments Chloride Lvl (test code = Chloride Lvl) 104 95-109 N [facility] HospitalJommhwrGWPESHTJZ5049-85-69 10:54:00 Test Item Value Reference Range Interpretation Comments Creatinine Lvl (test code = Creatinine 0.5 0.5-1.4 N Lvl) [facility] HospitalOiwfictUIDDDJSBB2159-44-87 10:54:00 Test Item Value Reference Range Interpretation Comments BUN (test code = BUN) 10 7-22 N [facility] HospitalSlpigodYIKBPBIIK7680-61-06 10:54:00 Test Item Value Reference Range Interpretation Comments Potassium Lvl (test code = Potassium 4.1 3.5-5.1 N Lvl) [facility] HospitalCjwgxcwQJJEYXHRH2414-18-18 10:54:00 Test Item Value Reference Range Interpretation Comments Sodium Lvl (test code = Sodium Lvl) 141 135-145 N [facility] HospitalBslnrvaJTBRICFMZ6433-33-01 10:54:00 Test Item Value Reference Range Interpretation Comments Glucose Lvl (test code = Glucose Lvl) 83 [facility] HospitalYljpsqwRJYNSHVSF0645-90-16 10:54:00 Test Item Value Reference Range Interpretation Comments Calcium Lvl (test code = Calcium Lvl) 8.4 8.5-10.5 L [facility] HospitalIgsvrexBMHUGRNVV1452-01-77 10:54:00 Test Item Value Reference Range Interpretation Comments AGAP (test code = AGAP) 14.1 10.0-20.0 N [facility]wayTqqdzusQGMSKWQDGA7789-71-30 10:54:00 Test Item Value Reference Range Interpretation Comments Hct (test code = Hct) 35.5 36.0-48.0 L [facility] LakewayNqqwmkjHIOKMQXQMY7978-77-76 10:54:00 Test Item Value Reference Range Interpretation Comments WBC (test code = WBC) 4.7 3.7-10.4 N [facility] LakewayStdygiuWMLCQFVKLJ9203-44-83 10:54:00 Test Item Value Reference Range Interpretation Comments MCV (test code = MCV) 92.6 81.0-99.0 N [facility]wayXvwqwviXIKFZWHKCU4156-36-37 10:54:00 Test Item Value Reference Range Interpretation Comments MCH (test code = MCH) 31.4 pg 27.0-31.0 H [facility] LakewayRcbrcdjPAPVINSNKB9627-24-34 10:54:00 Test Item Value Reference Range Interpretation Comments RBC (test code = RBC) 3.84 4.20-5.40 L [facility] LakewayKkriynwZEVLMCTCAU4733-96-31 10:54:00 Test Item Value Reference Range Interpretation Comments Hgb (test code = Hgb) 12.1 12.0-16.0 N [facility] LakewayPopcrpmGLZJMIRILH4105-38-30 10:54:00 Test Item Value Reference Range Interpretation Comments Platelet (test code = Platelet) 287 133-450 N [facility] LakewayQylhhjiMIHVPNFSBA3174-51-40 10:54:00 Test Item Value Reference Range Interpretation Comments RDW (test code = RDW) 12.7 11.5-14.5 N [facility] LakewayCenxhivIWRXLKZJOH4882-78-43 10:54:00 Test Item Value Reference Range Interpretation Comments MCHC (test code = MCHC) 33.9 32.0-36.0 N [facility] LakewayHmgqgzxACLYLLLYTR0758-47-85 10:54:00 Test Item Value Reference Range Interpretation Comments MPV (test code = MPV) 7.2 7.4-10.4 L [facility] LakewayFmtlcywQAKUKQWGEB6828-81-97 10:54:00 Test Item Value Reference Range Interpretation Comments INR (test code = INR) 0.95 0.85-1.17 N [facility] LakewayJdeqgeuXUEULEGFZR8673-88-69 10:54:00 Test Item Value Reference Range Interpretation Comments PT (test code = PT) 12.7 s 12.0-14.7 N [facility] LakewayNlmuahlESJJSIJSNX3521-90-30 10:54:00 Test Item Value Reference Range Interpretation Comments PTT (test code = PTT) 28.5 s 22.9-35.8 N [facility] LakewayXibgxnpNVDEUFQUXB9488-30-72 10:54:00 Test Item Value Reference Range Interpretation Comments Eosinophils # (test code 0.1 See_Comment N [A utomated message] The = Eosinophils #) system whic h generated this result tra nsmitted reference range : <=0.5. The reference r leo was not used to int erpret this result as normal/abnormal . [facility] LakewayGnusfvyOEIBQIYMRM5901-90-45 10:54:00 Test Item Value Reference Range Interpretation Comments Basophils # (test code 0.0 See_Comment N [Aut omated message] The = Basophils #) system which generated this result tra nsmitted reference range : <=0.2. The reference r leo was not used to int erpret this result as normal/abnormal . [facility] LakewayXtphbihODGXBEFIHT6479-10-23 10:54:00 Test Item Value Reference Range Interpretation Comments Basophils (test code = 0.4 See_Comment N [Aut omated message] The Basophils) system which ge nerated this result tra nsmitted reference range : <=1.0. The reference r leo was not used to int erpret this result as normal/abnormal . [facility] LakewayXhuwcdsFFQSVICITC0585-51-95 10:54:00 Test Item Value Reference Range Interpretation Comments Segs-Bands # (test code = Segs-Bands #) 2.1 1.5-8.1 N [facility] LakewayVunprtfHXRABUSMGM1159-98-65 10:54:00 Test Item Value Reference Range Interpretation Comments Monocytes (test code = Monocytes) 9.0 2.0-12.0 N [facility] LakewayTaknqfwXFONVQETFE6687-98-51 10:54:00 Test Item Value Reference Range Interpretation Comments Eosinophils (test code = 2.4 See_Comment N [A utomated message] The Eosinophils) system which ge nerated this result tra nsmitted reference range : <=4.0. The reference r leo was not used to int erpret this result as normal/abnormal . [facility] LakewayEtffpzxRCYHQKZGYY5658-49-12 10:54:00 Test Item Value Reference Range Interpretation Comments Monocytes # (test code 0.4 See_Comment N [Aut omated message] The = Monocytes #) system which generated this result tra nsmitted reference range : <=0.8. The reference r leo was not used to int erpret this result as normal/abnormal . [facility] LakewayJacpytbJDUZEMIXCE4481-66-42 10:54:00 Test Item Value Reference Range Interpretation Comments Lymphocytes # (test code = Lymphocytes 2.0 1.0-5.5 N #) [facility] LakewaySnxcvduDZQLXUJLPO9432-29-45 10:54:00 Test Item Value Reference Range Interpretation Comments Lymphocytes (test code = Lymphocytes) 42.8 20.0-40.0 H [facility] LakewayBdgrwtcCKCQUJOPZA9106-61-96 10:54:00 Test Item Value Reference Range Interpretation Comments Segs (test code = Segs) 45.4 45.0-75.0 N [facility] HospitalUbambamNUVZHFGAC6566-77-58 10:02:00 Test Item Value Reference Range Interpretation Comments Chloride Lvl (test code = Chloride Lvl) 105 95-109 N [facility] HospitalVusgveuDYDJTKUPE5372-72-28 10:02:00 Test Item Value Reference Range Interpretation Comments Potassium Lvl (test code = Potassium 4.1 3.5-5.1 N Lvl) [facility] HospitalVetsmuiVKZDUGIPF9291-03-84 10:02:00 Test Item Value Reference Range Interpretation Comments Sodium Lvl (test code = Sodium Lvl) 143 135-145 N [facility] HospitalRkyvtpvRQMYMUYNC0488-17-06 10:02:00 Test Item Value Reference Range Interpretation Comments CO2 (test code = CO2) 29 24-32 N [facility] HospitalQrsfoziYPMMELOJG4935-47-29 10:02:00 Test Item Value Reference Range Interpretation Comments Calcium Lvl (test code = Calcium Lvl) 8.7 8.5-10.5 N [facility] HospitalHyrydbeRPVGLXAFW4621-47-47 10:02:00 Test Item Value Reference Range Interpretation Comments BUN (test code = BUN) 6 7-22 L [facility] HospitalZuxcpyoPIWFGTLRK0553-52-42 10:02:00 Test Item Value Reference Range Interpretation Comments Creatinine Lvl (test code = Creatinine 0.6 0.5-1.4 N Lvl) [facility] HospitalFvatrosUKSQQXXWG3939-02-02 10:02:00 Test Item Value Reference Range Interpretation Comments Glucose Lvl (test code = Glucose Lvl) 118 [facility] HospitalXtatbhiREXJGKVVF9995-31-43 10:02:00 Test Item Value Reference Range Interpretation Comments AGAP (test code = AGAP) 13.1 10.0-20.0 N [facility]wayEzckdscYWZLMZTZLW0512-76-69 10:02:00 Test Item Value Reference Range Interpretation Comments Basophils # (test code 0.0 See_Comment N [Aut omated message] The = Basophils #) system which generated this result tra nsmitted reference range : <=0.2. The reference r leo was not used to int erpret this result as normal/abnormal . [facility] LakewaySlilhxnBQEFPVMDHV2367-48-06 10:02:00 Test Item Value Reference Range Interpretation Comments Monocytes # (test code 0.3 See_Comment N [Aut omated message] The = Monocytes #) system which generated this result tra nsmitted reference range : <=0.8. The reference r leo was not used to int erpret this result as normal/abnormal . [facility] LakewayAadvrlsYKSCCQLPWL9500-13-55 10:02:00 Test Item Value Reference Range Interpretation Comments Eosinophils # (test code 0.1 See_Comment N [A utomated message] The = Eosinophils #) system whic h generated this result tra nsmitted reference range : <=0.5. The reference r leo was not used to int erpret this result as normal/abnormal . [facility] LakewayNgxwixqVXBPKPRMPN0784-60-01 10:02:00 Test Item Value Reference Range Interpretation Comments Segs-Bands # (test code = Segs-Bands #) 2.8 1.5-8.1 N [facility] LakewayGhrihhqKXTXNDGKDQ8412-07-37 10:02:00 Test Item Value Reference Range Interpretation Comments Lymphocytes # (test code = Lymphocytes 1.7 1.0-5.5 N #) [facility] LakewayWynjeriYMECDXTHVW3687-64-42 10:02:00 Test Item Value Reference Range Interpretation Comments Basophils (test code = 0.6 See_Comment N [Aut omated message] The Basophils) system which ge nerated this result tra nsmitted reference range : <=1.0. The reference r leo was not used to int erpret this result as normal/abnormal . [facility] LakewayLnlairwIAHFGTDZKA7098-13-17 10:02:00 Test Item Value Reference Range Interpretation Comments Monocytes (test code = Monocytes) 6.9 2.0-12.0 N [facility] LakewayWxmdqxfOUIGSHXPGX7998-67-78 10:02:00 Test Item Value Reference Range Interpretation Comments Eosinophils (test code = 2.0 See_Comment N [A utomated message] The Eosinophils) system which ge nerated this result tra nsmitted reference range : <=4.0. The reference r leo was not used to int erpret this result as normal/abnormal . [facility] LakewayVtcyzsfULSRWHATHA0910-85-07 10:02:00 Test Item Value Reference Range Interpretation Comments Segs (test code = Segs) 55.8 45.0-75.0 N [facility] LakewayIuyufdlCXVTTYAWWO7921-52-35 10:02:00 Test Item Value Reference Range Interpretation Comments Lymphocytes (test code = Lymphocytes) 34.7 20.0-40.0 N [facility] LakewayRtdjynwXXTUSILVVC6438-30-73 10:02:00 Test Item Value Reference Range Interpretation Comments PTT (test code = PTT) 32.2 s 22.9-35.8 N [facility] LakewayVosafguSKXLCKFZVB9793-52-10 10:02:00 Test Item Value Reference Range Interpretation Comments PT (test code = PT) 13.3 s 12.0-14.7 N [facility] LakewayZhspheaVVFIFPGMBZ5892-49-86 10:02:00 Test Item Value Reference Range Interpretation Comments INR (test code = INR) 1.01 0.85-1.17 N [facility] LakewayVwruligZWGVRDYNFB9762-05-29 10:02:00 Test Item Value Reference Range Interpretation Comments Hct (test code = Hct) 27.5 36.0-48.0 L [facility] LakewayUefofpzKWQNEKTMFL1651-88-83 10:02:00 Test Item Value Reference Range Interpretation Comments RBC (test code = RBC) 3.34 4.20-5.40 L [facility] LakewayJdnlwqtABWRDVTEFB4819-90-37 10:02:00 Test Item Value Reference Range Interpretation Comments Hgb (test code = Hgb) 9.7 12.0-16.0 L [facility] LakewayZrwbploCRJMXHHZKK1610-68-71 10:02:00 Test Item Value Reference Range Interpretation Comments WBC (test code = WBC) 5.0 3.7-10.4 N [facility] LakewayPgdghxgADVAWAMHGY8776-03-33 10:02:00 Test Item Value Reference Range Interpretation Comments MPV (test code = MPV) 9.2 7.4-10.4 N [facility] LakewayZpkvyddMREDJQWTEX4966-90-30 10:02:00 Test Item Value Reference Range Interpretation Comments Platelet (test code = Platelet) 240 133-450 N [facility] LakewayNiqhumzERANMQUHRN5157-04-99 10:02:00 Test Item Value Reference Range Interpretation Comments RDW (test code = RDW) 14.3 11.5-14.5 N [facility] LakewayMfpqailZWSRWKCLGI7319-75-95 10:02:00 Test Item Value Reference Range Interpretation Comments MCHC (test code = MCHC) 35.2 32.0-36.0 N [facility] LakewayVfrdzgtLECVWRAYMS2944-15-16 10:02:00 Test Item Value Reference Range Interpretation Comments MCH (test code = MCH) 28.9 pg 27.0-31.0 N [facility] LakewayStfrfxpRJRUYLURIJ9979-41-17 10:02:00 Test Item Value Reference Range Interpretation Comments MCV (test code = MCV) 82.1 81.0-99.0 N [facility] HospitalVcvxadlIPFHNFWEU8908-29-26 09:24:00 Test Item Value Reference Range Interpretation Comments Magnesium Lvl (test code = Magnesium 2.1 1.8-2.4 N Lvl) [facility]DxuabwfWnqrukzgktmu9121-80-91 00:32:00 Test Item Value Reference Range Interpretation Comments Culture: Aspirate/Body Fluid/Tissue (test code = Culture: Aspirate/Body Fluid/Tissue) [facility]AllenSgchrapPvhwtanofxey3324-79-30 00:32:00 Test Item Value Reference Range Interpretation Comments Culture: Anaerobic (test code = Culture: Anaerobic) [facility] HospitalJfgboqnAUQISYDOQ4544-00-80 17:10:00 Test Item Value Reference Range Interpretation Comments Temp Roberth (test code = Temp Roberth) 37.0 [facility] HospitalUtznchdZUQQFVICS1729-44-05 17:10:00 Test Item Value Reference Range Interpretation Comments O2 Sat Roberth (test code = O2 Sat Roberth) 27.0 40.0-70.0 L [facility] HospitalLijjxkfIMMQRCTAD3062-68-84 17:10:00 Test Item Value Reference Range Interpretation Comments pCO2 Roberth (test code = pCO2 Roberth) 47 38-52 N [facility] HospitalIiwwfogABZIBVSUV6946-35-21 17:10:00 Test Item Value Reference Range Interpretation Comments pH Roberth (test code = pH Roberth) 7.37 7.28-7.42 N [facility] HospitalLnnyraoFHJSRXTAZ6896-44-66 17:10:00 Test Item Value Reference Range Interpretation Comments BE Roberth (test code = 1 See_Comment N [Automa rohit message] The BE Roberth) system which ge nerated this result transmit rohit reference range : <=2. The reference range was not used to interpr et this result as reji l/abnormal. [facility] HospitalDkkhsxnSOJDUFWFB1358-63-78 17:10:00 Test Item Value Reference Range Interpretation Comments HCO3 Roberth (test code = HCO3 Roberth) 27.2 22.0-26.0 H [facility] HospitalGklvnsrTXCIQQRSD3242-73-99 17:10:00 Test Item Value Reference Range Interpretation Comments pO2 Roberth (test code = pO2 Roberth) 19 20-49 L [facility]AllenZuownjuLnkpwwjdjhra8752-21-83 14:18:00 Test Item Value Reference Range Interpretation Comments Culture: Blood (test code = Culture: Blood) [facility]AllenMljwtvoFpcwnpkbsemt0318-23-32 14:18:00 Test Item Value Reference Range Interpretation Comments Culture: Wound/Abscess w/Gram Stain (test code = Culture: Wound/Abscess w/Gram Stain) [facility] HospitalXuwrcaxENDCWZPSX0778-24-03 13:09:00 Test Item Value Reference Range Interpretation Comments Lactic Acid Lvl (test code = Lactic 1.0 0.5-2.2 N Acid Lvl) [facility] HospitalCnypbfeLMVDAZUTE0237-49-98 12:20:00 Test Item Value Reference Range Interpretation Comments U Preg (test code = U Negative (09/01/2011 N Preg) 07:20:00) [facility]RcappzzLAMNVJKOBV6561-32-15 12:20:00 Test Item Value Reference Range Interpretation Comments UA Sq Epi (test code Occasional /LPF N = UA Sq Epi) (09/01/2011 07:20:00) [facility]ZjqtqyvFLEWGQTFNN8428-88-98 12:20:00 Test Item Value Reference Range Interpretation Comments UA Leuk Est (test Negative (09/01/2011 N code = UA Leuk Est) 07:20:00) [facility] HospitalMdoilipIQHZWMRLOW5311-44-10 12:20:00 Test Item Value Reference Range Interpretation Comments UA Nitrite (test code Negative (09/01/2011 N = UA Nitrite) 07:20:00) [facility] HospitalJymcjwmKRFGGYIYPL6050-66-83 12:20:00 Test Item Value Reference Range Interpretation Comments UA Urobilinogen (test code = UA 0.2 0.1-1.0 N Urobilinogen) [facility] HospitalFmqssgwKSSTWGESFH3760-90-30 12:20:00 Test Item Value Reference Range Interpretation Comments UA Blood (test code = Negative (09/01/2011 N UA Blood) 07:20:00) [facility] HospitalNuhusbyDQTVJAVEBZ0334-33-94 12:20:00 Test Item Value Reference Range Interpretation Comments UA Ketones (test code = >=80 mg/dL A UA Ketones) *ABN*(09/01/2011 07:20:00) [facility] HospitalXgmavjmENCAWVGSMA7474-36-91 12:20:00 Test Item Value Reference Range Interpretation Comments UA Protein (test code Negative (09/01/2011 N = UA Protein) 07:20:00) [facility] HospitalXipxmmnSMKNQRQWZO0747-86-97 12:20:00 Test Item Value Reference Range Interpretation Comments UA pH (test code = UA pH) 6.0 1 5.0-8.0 N [facility] HospitalDjrwxsrPUCEVRCAMN7348-56-23 12:20:00 Test Item Value Reference Range Interpretation Comments UA Bili (test code = Negative (09/01/2011 N UA Bili) 07:20:00) [facility] HospitalCzyrhxnCGIHIMCBVL2505-96-46 12:20:00 Test Item Value Reference Range Interpretation Comments UA Glucose (test code = >=1000 mg/dL A UA Glucose) *ABN*(09/01/2011 07:20:00) [facility] CenterZxrsskdYCGQOMXRNI7162-83-65 12:20:00 Test Item Value Reference Range Interpretation Comments UA Spec Grav (test code = UA Spec 1.035 1 H Grav) [facility] CenterOhnkrfsLVSUVKODVH0903-59-71 12:20:00 Test Item Value Reference Range Interpretation Comments UA Turbidity (test code = Clear (09/01/2011 N UA Turbidity) 07:20:00) [facility] CenterErckdaoWMELQHTXTX1701-71-99 12:20:00 Test Item Value Reference Range Interpretation Comments UA Color (test code = Yellow *NA*(09/01/2011 UA Color) 07:20:00) [facility] HospitalBgpakhxASXATJPUA9020-75-85 08:00:00 Test Item Value Reference Range Interpretation Comments Lactic Acid Lvl (test code = Lactic 2.8 0.5-2.2 H Acid Lvl) [facility] CenterTxuqyxjDJUJKSJKO0550-31-44 07:47:00 Test Item Value Reference Range Interpretation Comments Magnesium Lvl (test code = Magnesium 1.5 1.8-2.4 L Lvl) [facility] CenterMbqqfrwSZLBKRJQPL8199-53-65 07:47:00 Test Item Value Reference Range Interpretation Comments Polychrom (test code = Slight (09/01/2011 N Polychrom) 02:47:00) [facility] CenterPrhycqqQHTCJIOGYB9369-52-78 07:47:00 Test Item Value Reference Range Interpretation Comments Anisocyte (test code = 1+ *ABN*(09/01/2011 A Anisocyte) 02:47:00) [facility] CenterNhnxcwbOUCQYNKVRS2461-96-08 07:47:00 Test Item Value Reference Range Interpretation Comments Large Plt (test code = Slight *ABN*(09/01/2011 A Large Plt) 02:47:00) [facility] HospitalNrfsezcQHLKWZZOZS3250-29-66 07:47:00 Test Item Value Reference Range Interpretation Comments Tear Cell (test code = Tear Cell) Occasional [facility] CenterWeinzhwERYEROYREH4163-12-89 07:47:00 Test Item Value Reference Range Interpretation Comments Elliptocyte (test code = Slight A Elliptocyte) *ABN*(09/01/2011 02:47:00) [facility] CenterBEDSIDE GLUCOSE EJIVVWP4525-30-90 17:02:00 Test Item Value Reference Range Interpretation Comments Comment1 (test code = Comment1) Notify RN/MD [facility] GLUCOSE YBINKHH1541-45-91 17:02:00 Test Item Value Reference Range Interpretation Comments Gluc POC Lifscn (test code = Gluc POC 134 65-110 H Lifscn) [facility] GLUCOSE YNJDWSP5278-52-69 13:45:00 Test Item Value Reference Range Interpretation Comments Gluc POC Lifscn (test code = Gluc POC 182 65-110 H Lifscn) [facility] GLUCOSE MVNRKDR0120-56-45 13:45:00 Test Item Value Reference Range Interpretation Comments Comment1 (test code = Comment1) Notify RN/ [facility] HospitalXnuuevzAWMIRDKCU8000-21-07 10:22:00 Test Item Value Reference Range Interpretation Comments Phosphorus (test code = Phosphorus) 3.0 2.5-4.5 N [facility] HospitalRyhefkpVZLCIRGVG5971-27-33 10:22:00 Test Item Value Reference Range Interpretation Comments Magnesium Lvl (test code = Magnesium 1.8 1.8-2.4 N Lvl) [facility] HospitalMecbrlgGLKVWLTSG0005-15-27 10:22:00 Test Item Value Reference Range Interpretation Comments Chloride Lvl (test code = Chloride Lvl) 107 95-109 N [facility] HospitalTpyafmeNLIRDHYWX4113-93-87 10:22:00 Test Item Value Reference Range Interpretation Comments Potassium Lvl (test code = Potassium 3.0 3.5-5.1 A Lvl) [facility] HospitalPanqvpwZULCDMSSU6761-63-55 10:22:00 Test Item Value Reference Range Interpretation Comments Sodium Lvl (test code = Sodium Lvl) 141 135-145 N [facility] HospitalBtcsjwhATUELHEII7530-94-52 10:22:00 Test Item Value Reference Range Interpretation Comments Creatinine Lvl (test code = Creatinine 0.6 0.5-1.4 N Lvl) [facility] HospitalXmhpidhEEEHIACYF7114-34-94 10:22:00 Test Item Value Reference Range Interpretation Comments CO2 (test code = CO2) 23 24-32 L [facility] HospitalIhzniryXAOBCYKGI0393-69-37 10:22:00 Test Item Value Reference Range Interpretation Comments Calcium Lvl (test code = Calcium Lvl) 7.3 8.5-10.5 L [facility] HospitalMdxcckeRRUEKLHOA9380-21-37 10:22:00 Test Item Value Reference Range Interpretation Comments Glucose Lvl (test code = Glucose Lvl) 136 [facility] HospitalGdodbbfMLXSBZOTO3239-02-07 10:22:00 Test Item Value Reference Range Interpretation Comments AGAP (test code = AGAP) 14.0 10.0-20.0 N [facility] HospitalNfbtkhnMVWLHUIHE1103-35-21 10:22:00 Test Item Value Reference Range Interpretation Comments BUN (test code = BUN) 5 7-22 L [facility]wayKyjmpbuLQTZLAWKHD7668-22-71 10:22:00 Test Item Value Reference Range Interpretation Comments Segs (test code = Segs) 69.6 45.0-75.0 N [facility] LakewayHytxbzrCONEHMRXAF0625-67-41 10:22:00 Test Item Value Reference Range Interpretation Comments Lymphocytes (test code = Lymphocytes) 21.5 20.0-40.0 N [facility] LakewayMtyslttEGRESQJLQU4381-53-80 10:22:00 Test Item Value Reference Range Interpretation Comments Monocytes (test code = Monocytes) 7.6 2.0-12.0 N [facility] LakewayEybztuhGDHCSJZBCD4879-34-39 10:22:00 Test Item Value Reference Range Interpretation Comments Eosinophils (test code = 1.0 See_Comment N [A utomated message] The Eosinophils) system which ge nerated this result tra nsmitted reference range : <=4.0. The reference r leo was not used to int erpret this result as normal/abnormal . [facility]wayGnusnfsPIWUMJUVUT6843-30-40 10:22:00 Test Item Value Reference Range Interpretation Comments Basophils (test code = 0.3 See_Comment N [Aut omated message] The Basophils) system which ge nerated this result tra nsmitted reference range : <=1.0. The reference r leo was not used to int erpret this result as normal/abnormal . [facility] LakewayHvljpxuJSCXVRTSBP8775-27-28 10:22:00 Test Item Value Reference Range Interpretation Comments Segs-Bands # (test code = Segs-Bands #) 4.8 1.5-8.1 N [facility] LakewayPbqzpktBYPORCYDMS9526-33-07 10:22:00 Test Item Value Reference Range Interpretation Comments Eosinophils # (test code 0.1 See_Comment N [A utomated message] The = Eosinophils #) system whic h generated this result tra nsmitted reference range : <=0.5. The reference r leo was not used to int erpret this result as normal/abnormal . [facility] LakewayIycsyodJXATKUOVUB8514-56-49 10:22:00 Test Item Value Reference Range Interpretation Comments Lymphocytes # (test code = Lymphocytes 1.5 1.0-5.5 N #) [facility] LakewayRegxgaqSCCUOEOSGQ3987-81-59 10:22:00 Test Item Value Reference Range Interpretation Comments Monocytes # (test code 0.5 See_Comment N [Aut omated message] The = Monocytes #) system which generated this result tra nsmitted reference range : <=0.8. The reference r leo was not used to int erpret this result as normal/abnormal . [facility] LakewayMfqlnefYLYYQIELEJ3316-56-86 10:22:00 Test Item Value Reference Range Interpretation Comments Basophils # (test code 0.0 See_Comment N [Aut omated message] The = Basophils #) system which generated this result tra nsmitted reference range : <=0.2. The reference r leo was not used to int erpret this result as normal/abnormal . [facility] LakewayVoxmdztZZNWEGDPOT7591-73-78 10:22:00 Test Item Value Reference Range Interpretation Comments MPV (test code = MPV) 11.0 7.4-10.4 H [facility] LakewayAebfulyCTTQCIEUFU2077-00-13 10:22:00 Test Item Value Reference Range Interpretation Comments Platelet (test code = Platelet) 161 133-450 N [facility] LakewayXjyfkptXUXKTSWGPC0457-88-12 10:22:00 Test Item Value Reference Range Interpretation Comments MCH (test code = MCH) 29.6 pg 27.0-31.0 N [facility] LakewayJskjsgvXMLJJJHYOL2050-66-59 10:22:00 Test Item Value Reference Range Interpretation Comments MCHC (test code = MCHC) 35.4 32.0-36.0 N [facility] LakewayJiagfenASNJBAGESY9549-57-82 10:22:00 Test Item Value Reference Range Interpretation Comments RDW (test code = RDW) 14.1 11.5-14.5 N [facility] LakewayEnlliiuAXUUEEPCEV6842-43-24 10:22:00 Test Item Value Reference Range Interpretation Comments WBC (test code = WBC) 6.8 3.7-10.4 N [facility] LakewayZaslxvdXDLEAWYENO7473-76-55 10:22:00 Test Item Value Reference Range Interpretation Comments MCV (test code = MCV) 83.5 81.0-99.0 N [facility] LakewayBaykqziMAYBVUKTTD6038-18-88 10:22:00 Test Item Value Reference Range Interpretation Comments RBC (test code = RBC) 4.44 4.20-5.40 N [facility] LakewayZxgfjxoCKFUFRZBSZ1745-29-74 10:22:00 Test Item Value Reference Range Interpretation Comments Hgb (test code = Hgb) 13.1 12.0-16.0 N [facility] LakewayBpgzgfcJYNRNJIFCR7917-93-07 10:22:00 Test Item Value Reference Range Interpretation Comments Hct (test code = Hct) 37.1 36.0-48.0 N [facility] GLUCOSE RJHPGUX7918-96-32 02:20:00 Test Item Value Reference Range Interpretation Comments Comment1 (test code = Comment1) Notify RN/MD [facility] GLUCOSE XROQXLG7111-59-44 02:20:00 Test Item Value Reference Range Interpretation Comments Gluc POC Lifscn (test code = Gluc POC 332 65-110 H Lifscn) [facility] HospitalJiiggsjTGBWXOSFZ5148-49-77 09:47:00 Test Item Value Reference Range Interpretation Comments Phosphorus (test code = Phosphorus) 2.5 2.5-4.5 N [facility] HospitalTihnysaNBQAVXGBG5635-17-71 09:47:00 Test Item Value Reference Range Interpretation Comments Glucose Lvl (test code = Glucose Lvl) 201 [facility] HospitalCswgcxiFXEIPJWDV8174-61-59 09:47:00 Test Item Value Reference Range Interpretation Comments BUN (test code = BUN) 7 7-22 N [facility] HospitalJseplvkKPRGBVCAG5866-15-30 09:47:00 Test Item Value Reference Range Interpretation Comments CO2 (test code = CO2) 19 24-32 L [facility] HospitalDmbputdAGPGMQZDZ1724-00-03 09:47:00 Test Item Value Reference Range Interpretation Comments Creatinine Lvl (test code = Creatinine 0.3 0.5-1.4 L Lvl) [facility] HospitalWvuynmeOSXIEJXWS5763-25-88 09:47:00 Test Item Value Reference Range Interpretation Comments Sodium Lvl (test code = Sodium Lvl) 137 135-145 N [facility] HospitalWmhfatjDDQJLJGEE0209-80-82 09:47:00 Test Item Value Reference Range Interpretation Comments Chloride Lvl (test code = Chloride Lvl) 103 95-109 N [facility] HospitalRemjatgIRXAKUVQR2969-02-88 09:47:00 Test Item Value Reference Range Interpretation Comments Potassium Lvl (test code = Potassium 3.6 3.5-5.1 N Lvl) [facility] HospitalAnexjdbUVIGIZSRP6507-22-41 09:47:00 Test Item Value Reference Range Interpretation Comments Calcium Lvl (test code = Calcium Lvl) 7.9 8.5-10.5 L [facility] HospitalEmcxyygNMSHGWQUA3146-72-68 09:47:00 Test Item Value Reference Range Interpretation Comments AGAP (test code = AGAP) 18.6 10.0-20.0 N [facility] HospitalWvpbrhpXQZODSZZT0761-29-44 09:47:00 Test Item Value Reference Range Interpretation Comments Magnesium Lvl (test code = Magnesium 1.6 1.8-2.4 L Lvl) [facility] LakewayNstoxwbFBNAIRXLBC8257-07-68 09:47:00 Test Item Value Reference Range Interpretation Comments Basophils # (test code 0.0 See_Comment N [Aut omated message] The = Basophils #) system which generated this result tra nsmitted reference range : <=0.2. The reference r leo was not used to int erpret this result as normal/abnormal . [facility] LakewayAbueqwoJUCHPXNLAB8945-15-27 09:47:00 Test Item Value Reference Range Interpretation Comments Eosinophils (test code = 0.4 See_Comment N [A utomated message] The Eosinophils) system which ge nerated this result tra nsmitted reference range : <=4.0. The reference r leo was not used to int erpret this result as normal/abnormal . [facility] LakewayXccdvqpVFTKPHCMRN6941-35-32 09:47:00 Test Item Value Reference Range Interpretation Comments Basophils (test code = 0.5 See_Comment N [Aut omated message] The Basophils) system which ge nerated this result tra nsmitted reference range : <=1.0. The reference r leo was not used to int erpret this result as normal/abnormal . [facility] LakewayVqylqatMQSMLLKSNR3718-60-97 09:47:00 Test Item Value Reference Range Interpretation Comments Segs-Bands # (test code = Segs-Bands #) 5.9 1.5-8.1 N [facility] LakewayVdraqetSTFCMQXAEH3467-64-87 09:47:00 Test Item Value Reference Range Interpretation Comments Lymphocytes # (test code = Lymphocytes 1.2 1.0-5.5 N #) [facility] LakewayGudamofIKIVFCPFJC6130-14-96 09:47:00 Test Item Value Reference Range Interpretation Comments Monocytes # (test code 0.5 See_Comment N [Aut omated message] The = Monocytes #) system which generated this result tra nsmitted reference range : <=0.8. The reference r leo was not used to int erpret this result as normal/abnormal . [facility] LakewayTtywdvpVAUCMLBUDE9361-09-51 09:47:00 Test Item Value Reference Range Interpretation Comments Eosinophils # (test code 0.0 See_Comment N [A utomated message] The = Eosinophils #) system whic h generated this result tra nsmitted reference range : <=0.5. The reference r leo was not used to int erpret this result as normal/abnormal . [facility] LakewayXnjdfbqXKCBFSZSDL6178-90-66 09:47:00 Test Item Value Reference Range Interpretation Comments Segs (test code = Segs) 76.9 45.0-75.0 H [facility] LakewayGuuqzonUEKNIPYJWQ3389-31-54 09:47:00 Test Item Value Reference Range Interpretation Comments Lymphocytes (test code = Lymphocytes) 15.9 20.0-40.0 L [facility] LakewayClfackgMGRTPTROTI2041-14-99 09:47:00 Test Item Value Reference Range Interpretation Comments Monocytes (test code = Monocytes) 6.3 2.0-12.0 N [facility] LakewayDmncpyiFLOXWYGNTU7088-65-32 09:47:00 Test Item Value Reference Range Interpretation Comments MCV (test code = MCV) 82.8 81.0-99.0 N [facility] LakewayDmjbwtkXGNAJLGRMK8824-07-31 09:47:00 Test Item Value Reference Range Interpretation Comments Hct (test code = Hct) 39.7 36.0-48.0 N [facility] LakewayJlhmbwhNXTDNFUPPA5786-11-24 09:47:00 Test Item Value Reference Range Interpretation Comments MCH (test code = MCH) 29.1 pg 27.0-31.0 N [facility] LakewayWqcmspcEXNTQACCAC6432-88-78 09:47:00 Test Item Value Reference Range Interpretation Comments Hgb (test code = Hgb) 14.0 12.0-16.0 N [facility] LakewayNkqpryjJREPBLRWQZ8350-58-72 09:47:00 Test Item Value Reference Range Interpretation Comments MCHC (test code = MCHC) 35.2 32.0-36.0 N [facility] LakewayScnuqloUIIXZZLTOX4027-16-45 09:47:00 Test Item Value Reference Range Interpretation Comments RDW (test code = RDW) 13.9 11.5-14.5 N [facility] LakewayByxqlywAJAYQEOWAJ3635-98-13 09:47:00 Test Item Value Reference Range Interpretation Comments Platelet (test code = Platelet) 160 133-450 N [facility] LakewayQirzqbbKWYJTYQKFA0781-11-39 09:47:00 Test Item Value Reference Range Interpretation Comments MPV (test code = MPV) 11.9 7.4-10.4 H [facility] LakewayLxiahwqQKWRYEEYIY1604-65-23 09:47:00 Test Item Value Reference Range Interpretation Comments WBC (test code = WBC) 7.7 3.7-10.4 N [facility] LakewayBswvcotUXMQDBOZWT1413-30-79 09:47:00 Test Item Value Reference Range Interpretation Comments RBC (test code = RBC) 4.80 4.20-5.40 N [facility] HospitalTigywbjTDOMVXXAD9041-65-57 10:28:00 Test Item Value Reference Range Interpretation Comments Phosphorus (test code = Phosphorus) 2.6 2.5-4.5 N [facility] HospitalNmtweolVAOGNFUZO9538-30-33 10:28:00 Test Item Value Reference Range Interpretation Comments Magnesium Lvl (test code = Magnesium 1.8 1.8-2.4 N Lvl) [facility] HospitalYjzkosnCMAHTEKYC3807-30-35 10:28:00 Test Item Value Reference Range Interpretation Comments Potassium Lvl (test code = Potassium 3.7 3.5-5.1 N Lvl) [facility] HospitalVbcmaddDVOKAYLAO1919-38-38 10:28:00 Test Item Value Reference Range Interpretation Comments Sodium Lvl (test code = Sodium Lvl) 137 135-145 N [facility] HospitalMeinmgbNOJADQGNW2247-19-85 10:28:00 Test Item Value Reference Range Interpretation Comments Creatinine Lvl (test code = Creatinine 0.6 0.5-1.4 N Lvl) [facility] HospitalIrplbctVUPIWWEUP6167-15-42 10:28:00 Test Item Value Reference Range Interpretation Comments BUN (test code = BUN) 16 7-22 N [facility] HospitalHahghimCSPERAAFR0833-81-11 10:28:00 Test Item Value Reference Range Interpretation Comments Glucose Lvl (test code = Glucose Lvl) 200 [facility] HospitalCwmpmuwISFRGXCBC3439-15-55 10:28:00 Test Item Value Reference Range Interpretation Comments Calcium Lvl (test code = Calcium Lvl) 8.3 8.5-10.5 L [facility] HospitalJyfpjcwXCMEBMSGD8723-00-15 10:28:00 Test Item Value Reference Range Interpretation Comments AGAP (test code = AGAP) 19.7 10.0-20.0 N [facility] HospitalPutfrqxVJQOYUUZW2424-39-98 10:28:00 Test Item Value Reference Range Interpretation Comments Chloride Lvl (test code = Chloride Lvl) 99 95-109 N [facility] HospitalJeeuxykWDHGYGYLP4195-31-33 10:28:00 Test Item Value Reference Range Interpretation Comments CO2 (test code = CO2) 22 24-32 L [facility] LakewayXbjvozaHWGEFDTLML3138-25-63 10:28:00 Test Item Value Reference Range Interpretation Comments Platelet (test code = Platelet) 172 133-450 N [facility] LakewayVzfuibiEUBQBMGFAP7415-38-89 10:28:00 Test Item Value Reference Range Interpretation Comments MPV (test code = MPV) 12.0 7.4-10.4 H [facility] LakewayUrujgccLCMAMTPTMS1542-87-47 10:28:00 Test Item Value Reference Range Interpretation Comments WBC (test code = WBC) 7.3 3.7-10.4 N [facility] LakewayZycsdccOZGFNVJVDS8236-09-71 10:28:00 Test Item Value Reference Range Interpretation Comments RDW (test code = RDW) 14.6 11.5-14.5 H [facility] LakewayUvxhxxlYQQBBWGGDU4059-14-22 10:28:00 Test Item Value Reference Range Interpretation Comments MCHC (test code = MCHC) 35.0 32.0-36.0 N [facility] LakewayWdiaqdvQDGKMWQOQQ7829-79-95 10:28:00 Test Item Value Reference Range Interpretation Comments RBC (test code = RBC) 4.54 4.20-5.40 N [facility] LakewayPruomtzGTFQEOXKGX7614-44-71 10:28:00 Test Item Value Reference Range Interpretation Comments Hct (test code = Hct) 37.6 36.0-48.0 N [facility] LakewayPwywwghTZFSXBTMFB1497-49-94 10:28:00 Test Item Value Reference Range Interpretation Comments MCV (test code = MCV) 82.9 81.0-99.0 N [facility] LakewayTxcisesFIXLOKCWOR3909-64-85 10:28:00 Test Item Value Reference Range Interpretation Comments MCH (test code = MCH) 29.0 pg 27.0-31.0 N [facility] LakewayUavcadxKSZPPZMJUD3202-69-74 10:28:00 Test Item Value Reference Range Interpretation Comments Hgb (test code = Hgb) 13.2 12.0-16.0 N [facility] LakewayZrnhvwgMPSEBRVSEM2150-77-16 10:28:00 Test Item Value Reference Range Interpretation Comments Elliptocyte (test code = Slight A Elliptocyte) *ABN*(08/21/2011 04:28:00) [facility] LakewayFkfmfbsDXJZWKOJGC9416-45-99 10:28:00 Test Item Value Reference Range Interpretation Comments Polychrom (test code = Slight (08/21/2011 N Polychrom) 04:28:00) [facility] LakewayPcxeqxcVMQHEQAGBC4177-19-42 10:28:00 Test Item Value Reference Range Interpretation Comments Basophils # (test code 0.0 See_Comment N [Aut omated message] The = Basophils #) system which generated this result tra nsmitted reference range : <=0.2. The reference r leo was not used to int erpret this result as normal/abnormal . [facility] LakewayStcxvftVCVZPCXTPL3309-10-40 10:28:00 Test Item Value Reference Range Interpretation Comments Hypochrom (test code = Slight (08/21/2011 N Hypochrom) 04:28:00) [facility] LakewayBtvzzudQXIUKYLEFH3654-08-79 10:28:00 Test Item Value Reference Range Interpretation Comments Monocytes # (test code 0.6 See_Comment N [Aut omated message] The = Monocytes #) system which generated this result tra nsmitted reference range : <=0.8. The reference r leo was not used to int erpret this result as normal/abnormal . [facility] LakewayPcfclbjIIBUKFVOYN5196-35-11 10:28:00 Test Item Value Reference Range Interpretation Comments Eosinophils # (test code 0.0 See_Comment N [A utomated message] The = Eosinophils #) system whic h generated this result tra nsmitted reference range : <=0.5. The reference r leo was not used to int erpret this result as normal/abnormal . [facility] LakewayIfhognyRLITSIDIKE5127-90-85 10:28:00 Test Item Value Reference Range Interpretation Comments Segs-Bands # (test code = Segs-Bands #) 5.3 1.5-8.1 N [facility] LakewayTfqrshdRJOOQACGZI8603-86-13 10:28:00 Test Item Value Reference Range Interpretation Comments Lymphocytes # (test code = Lymphocytes 1.3 1.0-5.5 N #) [facility] LakewayOidugjkCVRJJMNKLP1369-93-17 10:28:00 Test Item Value Reference Range Interpretation Comments Basophils (test code = 0.5 See_Comment N [Aut omated message] The Basophils) system which ge nerated this result tra nsmitted reference range : <=1.0. The reference r leo was not used to int erpret this result as normal/abnormal . [facility] LakewayVtncmuxJHPYGKGFRO3898-73-96 10:28:00 Test Item Value Reference Range Interpretation Comments Monocytes (test code = Monocytes) 8.5 2.0-12.0 N [facility] LakewayKzljnnwMZLLGQXJWA3428-20-79 10:28:00 Test Item Value Reference Range Interpretation Comments Eosinophils (test code = 0.3 See_Comment N [A utomated message] The Eosinophils) system which ge nerated this result tra nsmitted reference range : <=4.0. The reference r leo was not used to int erpret this result as normal/abnormal . [facility] LakewayCllietpVUERIMDOTY4658-94-23 10:28:00 Test Item Value Reference Range Interpretation Comments Lymphocytes (test code = Lymphocytes) 17.3 20.0-40.0 L [facility] LakewayJruhrvrUWFPYBIGNG7352-95-25 10:28:00 Test Item Value Reference Range Interpretation Comments Segs (test code = Segs) 73.4 45.0-75.0 N [facility] GLUCOSE RUSTCBW8986-57-83 07:47:00 Test Item Value Reference Range Interpretation Comments Comment2 (test code = Comment2) Verify w/Lab [facility] HospitalSmwabeyDIXTJHDGD1371-02-52 21:58:00 Test Item Value Reference Range Interpretation Comments S Preg (test code = S Negative (08/19/2011 N Preg) 15:58:00) [facility] HospitalGldeqkuLXULPAAHU4659-33-14 21:58:00 Test Item Value Reference Range Interpretation Comments Lipase Lvl (test code = Lipase Lvl) 169 73-393 N [facility] HospitalFsovbntCKTFNBBPV6043-86-31 21:58:00 Test Item Value Reference Range Interpretation Comments ALT (test code = ALT) 54 See_Comment N [Auto mated message] The system which ge nerated this result transmit rohit reference range : <=65. The reference range was not used to interpr et this result as reji l/abnormal. [facility] HospitalFxerhdyNUOQOBJBY0276-90-66 21:58:00 Test Item Value Reference Range Interpretation Comments Alk Phos (test code = Alk Phos) 110 39-136 N [facility] HospitalZbwqfeoUFDPFAYVJ2450-65-67 21:58:00 Test Item Value Reference Range Interpretation Comments Bili Direct (test code 0.1 See_Comment N [Aut omated message] The = Bili Direct) system which generated this result tra nsmitted reference range : <=0.3. The reference r leo was not used to int erpret this result as erji l/abnormal. [facility] HospitalMumdykcRODYPKIHM2527-60-53 21:58:00 Test Item Value Reference Range Interpretation Comments Bili Total (test code = Bili Total) 0.9 0.2-1.3 N [facility] HospitalTqjjecnUXNEYQXOY2514-85-62 21:58:00 Test Item Value Reference Range Interpretation Comments Albumin Lvl (test code = Albumin Lvl) 4.4 3.5-5.0 N [facility] HospitalWceglliXIXNLRDUO2724-98-99 21:58:00 Test Item Value Reference Range Interpretation Comments Total Protein (test code = Total 8.8 6.4-8.4 H Protein) [facility] HospitalObjudopNMOBZVMCW5268-32-58 21:58:00 Test Item Value Reference Range Interpretation Comments Bili Indirect (test 0.8 See_Comment N [Automa rohit message] The code = Bili Indirect) system which generated this result tra nsmitted reference range : <=1.0. The reference r leo was not used to int erpret this result as normal/abnormal . [facility] HospitalWiumsvbCKPCZCACI5798-22-50 21:58:00 Test Item Value Reference Range Interpretation Comments AST (test code = AST) 36 See_Comment N [Auto mated message] The system which ge nerated this result transmit rohit reference range : <=37. The reference range was not used to interpr et this result as reji l/abnormal. [facility] HospitalYteshlxLFNPCZBRO9830-35-92 21:58:00 Test Item Value Reference Range Interpretation Comments Globulin (test code = Globulin) 4.4 2.0-4.0 H [facility] HospitalJmxjmlmHMDPWFZAE2577-10-04 21:58:00 Test Item Value Reference Range Interpretation Comments A/G Ratio (test code = A/G Ratio) 1.0 0.7-1.6 N [facility] HospitalJlqfusyTRQRGRRHSS6047-77-54 21:58:00 Test Item Value Reference Range Interpretation Comments UA Bacteria (test code Occasional /HPF N = UA Bacteria) (08/19/2011 15:58:00) [facility]IvdvgioQUJSGPUABL4986-72-20 21:58:00 Test Item Value Reference Range Interpretation Comments UA RBC (test 3-5 /HPF See_Comment A [Automated mes pastor] code = UA RBC) *ABN*(08/19/2011 The syste m which 15:58:00) generated this result transmitted ref erence range: <=2. The reference range was not used to int erpret this result as normal/abnormal . [facility] CenterYwxoglcIYUNTDFOSG2725-62-63 21:58:00 Test Item Value Reference Range Interpretation Comments UA WBC (test code = 3 See_Comment [Automa rohit message] The UA WBC) system which ge nerated this result transmit rohit reference range : <=5. The reference range was not used to interpr et this result as reji l/abnormal. [facility] CenterAgtnoqoTDYMFLUJQT5258-76-86 21:58:00 Test Item Value Reference Range Interpretation Comments UA Mucus (test code = Few /LPF (08/19/2011 N UA Mucus) 15:58:00) [facility] CenterFfjabbjMTASCFPQIX1176-85-58 21:58:00 Test Item Value Reference Range Interpretation Comments UA Amorph Destiny (test Occasional /HPF A code = UA Amorph *ABN*(08/19/2011 Destiny) 15:58:00) [facility] CenterYuypgzhSOAXTPVNXZ6543-45-51 21:58:00 Test Item Value Reference Range Interpretation Comments UA Urobilinogen (test code = UA 0.2 0.1-1.0 N Urobilinogen) [facility] CenterQlhpaokHHHOLVIORV1466-74-99 21:58:00 Test Item Value Reference Range Interpretation Comments UA Sq Epi (test code = Rare /LPF (08/19/2011 N UA Sq Epi) 15:58:00) [facility] CenterKhwjdvfRMQIBYNXQC4653-60-59 21:58:00 Test Item Value Reference Range Interpretation Comments Micro? (test code = Performed (08/19/2011 N Micro?) 15:58:00) [facility]PvmaigpFWUAJNPEEV8414-24-50 21:58:00 Test Item Value Reference Range Interpretation Comments UA Leuk Est (test Negative (08/19/2011 N code = UA Leuk Est) 15:58:00) [facility]WrtklllNJEEGWAHPX0658-14-91 21:58:00 Test Item Value Reference Range Interpretation Comments UA Nitrite (test code Negative (08/19/2011 N = UA Nitrite) 15:58:00) [facility] HospitalWcjbaylXPUREQICAJ3391-69-75 21:58:00 Test Item Value Reference Range Interpretation Comments UA pH (test code = UA pH) 5.5 1 5.0-8.0 N [facility] HospitalWksorodCSDGPKVJWF0682-05-72 21:58:00 Test Item Value Reference Range Interpretation Comments UA Blood (test code = Trace *ABN*(08/19/2011 A UA Blood) 15:58:00) [facility] HospitalXyxgdmuPLXYYATEFO6048-81-94 21:58:00 Test Item Value Reference Range Interpretation Comments UA Bili (test code = Negative (08/19/2011 N UA Bili) 15:58:00) [facility] HospitalUawjruxMSRTSZNWEM3653-60-52 21:58:00 Test Item Value Reference Range Interpretation Comments UA Ketones (test code = 80 mg/dL A UA Ketones) *ABN*(08/19/2011 15:58:00) [facility] HospitalYczhvwoKPGLPYCUJW1295-07-94 21:58:00 Test Item Value Reference Range Interpretation Comments UA Glucose (test code = >=1000 mg/dL A UA Glucose) *ABN*(08/19/2011 15:58:00) [id number] 21:58:00 Test Item Value Reference Range Interpretation Comments UA Protein (test code Negative (08/19/2011 N = UA Protein) 15:58:00) [id number] 21:58:00 Test Item Value Reference Range Interpretation Comments UA Turbidity (test code Slight Cloudy N = UA Turbidity) (08/19/2011 15:58:00) [id number] 21:58:00 Test Item Value Reference Range Interpretation Comments UA Spec Grav (test code = UA Spec 1.025 1 Grav) [id number] 21:58:00 Test Item Value Reference Range Interpretation Comments UA Color (test code = Yellow (08/19/2011 N UA Color) 15:58:00) [facility] Hospital[id number] 21:13:00 Test Item Value Reference Range Interpretation Comments AST (test code = AST) 23 See_Comment N [Auto mated message] The system which ge nerated this result transmit rohit reference range : <=37. The reference range was not used to interpr et this result as reji l/abnormal. [facility] Hospi[id number] 21:13:00 Test Item Value Reference Range Interpretation Comments Bili Total (test code = Bili Total) 1.0 0.2-1.3 N [facility] H[id number] 21:13:00 Test Item Value Reference Range Interpretation Comments Alk Phos (test code = Alk Phos) 115 39-136 N [facility] H[id number] 21:13:00 Test Item Value Reference Range Interpretation Comments ALT (test code = ALT) 56 See_Comment N [Auto mated message] The system which ge nerated this result transmit rohit reference range : <=65. The reference range was not used to interpr et this result as reji l/abnormal. [facility] HospitalLhodijfUHPBLVCSO3600-19-11 21:13:00 Test Item Value Reference Range Interpretation Comments Total Protein (test code = Total 9.0 6.4-8.4 H Protein) [facility] Hospi[id number] 21:13:00 Test Item Value Reference Range Interpretation Comments Albumin Lvl (test code = Albumin Lvl) 4.8 3.5-5.0 N [facility] Hospital[id number] 21:13:00 Test Item Value Reference Range Interpretation Comments Globulin (test code = Globulin) 4.2 2.0-4.0 H [facility] HospitalSnzegxnAYFBQGTVZ2345-45-87 21:13:00 Test Item Value Reference Range Interpretation Comments A/G Ratio (test code = A/G Ratio) 1.1 0.7-1.6 N [facility] HospitalPtphsrhQBCELOWMT4313-99-51 21:13:00 Test Item Value Reference Range Interpretation Comments B/C Ratio (test code = B/C Ratio) 30 6-25 H [facility]doeqzaZZHRDBYVZI7049-14-88 21:13:00 Test Item Value Reference Range Interpretation Comments RBC Morph (test code = Normal (08/19/2011 N RBC Morph) 15:13:00) [facility]wayYvummhuAGUGDKEAIZ0141-18-04 21:13:00 Test Item Value Reference Range Interpretation Comments Large Plt (test code = Slight *ABN*(08/19/2011 A Large Plt) 15:13:00) [facility]wayBnsyhyzSVZCLPZLNC5920-61-11 21:13:00 Test Item Value Reference Range Interpretation Comments Atypical Lymphs (test code = Atypical 0.0 N Lymphs) [facility]w[id number] 21:13:00 Test Item Value Reference Range Interpretation Comments Bands (test code = 0.0 See_Comment N [Automat ed message] The Bands) system which ge nerated this result transmit rohit reference range : <=11.0. The reference r leo was not used to interpr et this result as reji l/abnormal. [facility] HospitalJjktgkhYAJTLOMPG0607-26-71 21:10:00 Test Item Value Reference Range Interpretation Comments O2 Sat Roberth (test code = O2 Sat Roberth) 74.0 40.0-70.0 H [facility] HospitalSzuodmlFEJMTUDUB4425-51-31 21:10:00 Test Item Value Reference Range Interpretation Comments Temp Roberth (test code = Temp Roberth) 37.0 [facility] Hospi[id number] 21:10:00 Test Item Value Reference Range Interpretation Comments pO2 Roberth (test code = pO2 Roberth) 42 20-49 N [facility] H[id number] 21:10:00 Test Item Value Reference Range Interpretation Comments HCO3 Roberth (test code = HCO3 Roberth) 17.3 22.0-26.0 L [facility] HospitalWradrlvDKQASCVNI8804-15-43 21:10:00 Test Item Value Reference Range Interpretation Comments pH Roberth (test code = pH Roberth) 7.34 7.28-7.42 N [facility] HospitalTtmxeqaUBKWJROVW7314-00-57 21:10:00 Test Item Value Reference Range Interpretation Comments pCO2 Roberth (test code = pCO2 Roberth) 32 38-52 L [facility] Hospi[id number] 21:10:00 Test Item Value Reference Range Interpretation Comments BE Roberth (test code = -7 See_Comment L [Automa rohit message] The BE Roberth) system which ge nerated this result transmit rohit reference range : <=2. The reference range was not used to interpr et this result as reji l/abnormal. [facility] Cent[id number] 20:34:00 Test Item Value Reference Range Interpretation Comments CDC-HIV 1/2 Ab (test Negative *NA*(08/19/2011 code = CDC-HIV 1/2 14:34:00) Ab) [facility]
[2022-06-01] MEDS ORDERED: ONDANSETRON 4 MG (ODT) TAB ONE (19:43)
[2022-06-01] MEDS ORDERED: LORazepam 2 MG/ML VIAL ONE (20:11)
[2022-06-01 20:20] LABS: Absolute Lymphocytes (CBC) 1.3 K/uL (0.7-4.9); Hematocrit 29.3 % (36.0-45.0); Lymphocytes % 23.5 % (15.3-44.8); MCV 91.6 fL (80-100); MPV 9.9 fL (7.6-11.3)
[2022-06-01 21:47] LABS: Albumin 3.4 g/dL (3.4-5.0); Bilirubin Total 0.6 mg/dL (0.2-1.0); Protein, Total 6.7 g/dL (6.4-8.2)
[2022-06-01 21:52] LABS: Potassium 5.8 mmol/L (3.5-5.1)
[2022-06-01] MEDS ORDERED: ALBUTEROL 2.5 MG/3 ML NEB SOL ONE (22:14)
[2022-06-01] MEDS ORDERED: INSULIN -REGULAR HUMAN 50 UNIT/0.5 ML ML ONE (22:14)
[2022-06-01] MEDS ORDERED: SOD POLYSTYREN SUL 15 GM/60 ML UCUP ONE (22:15)
[2022-06-01] MEDS ORDERED: D10W 250 ML IV ONE (22:15)
[2022-06-01] MEDS ORDERED: MORPHINE 4 MG/ML SYR ONE (22:57)
--- NOTE | 2022-06-02 01:57 | EDPHYS ---
Physician Documentation [facility] Name: Cathi Zaldivar Age: 41 yrs Sex: Female : 1980 Arrival Date: 06/01/2022 Time: 16:18 Bed 4 Private MD: ED Physician Dinesh Stallworth HPI: 06/01 17:10 This 41 yrs old Female presents to ER via Wheelchair with complaints of cp Abdominal Pain. 17:10 The patient presents with abdominal pain left side of abdomen. Onset: The cp symptoms/episode began/occurred 3 day(s) ago. Associated signs and symptoms: Pertinent positives: nausea and vomiting, Pertinent negatives: chest pain, constipation, diarrhea, vomiting blood. Severity of pain: in the emergency department the pain is unchanged despite home interventions. Historical: - Allergies: 16:40 ambien; ld1 16:40 Codeine; ld1 16:40 GUAIFENESIN; ld1 16:40 Lisinopril; ld1 16:40 Morphine; ld1 16:40 Nitrofurantoin Macrocrystal; ld1 16:40 PENICILLINS; ld1 16:40 Prolixin; ld1 16:40 zolpidem tartrate; ld1 - PMHx: 16:40 "mental problems"; CHF; chronic kidney disease; cyclic vomiting syndrome; Diabetes - ld1 NIDDM; Dialysis; m-w-f; ENCEPHALOPATHY; Gastroparesis; Hypertension; ibs; liver failure; PERIPHERAL NEUROPATHY; pseudo aneurysm R groin; Seizures; 06/02 07:00 Cardiac Arrest; mb9 - PSHx: 06/01 16:40 section; dialysis catheter R chest wall; eye removed; ld1 - Immunization history:: Adult Immunizations up to date, Client reports receiving the 2nd dose of the Covid vaccine. - Social history:: Smoking status: Patient denies any tobacco usage or history of. Patient/guardian denies using alcohol. ROS: 17:15 Constitutional: Negative for body aches, chills, fever. cp 17:15 Eyes: Negative for injury, pain, redness, and discharge. cp 17:15 ENT: Negative for drainage from ear(s), ear pain, sore throat, difficulty swallowing, difficulty handling secretions. 17:15 Cardiovascular: Negative for chest pain, palpitations. 17:15 Respiratory: Negative for cough, shortness of breath, wheezing. 17:15 Abdomen/GI: Positive for abdominal pain, nausea and vomiting, Negative for diarrhea, constipation, hematemesis. 17:15 Neuro: Negative for altered mental status, headache. 17:15 All other systems are negative. Exam: 17:20 Head/Face: Normocephalic, atraumatic. cp 17:20 Constitutional: The patient appears in no acute distress, alert, awake, non-diaphoretic, non-toxic, well developed, well nourished, uncomfortable. 17:20 Eyes: Periorbital structures: appear normal, Conjunctiva: normal, no exudate, no injection, Sclera: no appreciated abnormality, Lids and lashes: appear normal, bilaterally. 17:20 ENT: External ear(s): are unremarkable, Nose: is normal, Mouth: Lips: moist, Oral mucosa: moist, Posterior pharynx: Airway: no evidence of obstruction, patent. 17:20 Chest/axilla: Inspection: normal. 17:20 Cardiovascular: Rate: normal, Rhythm: regular. 17:20 Respiratory: the patient does not display signs of respiratory distress, Respirations: normal, no use of accessory muscles, no retractions, labored breathing, is not present, Breath sounds: are clear throughout, no decreased breath sounds, no stridor, no wheezing. 17:20 Abdomen/GI: Inspection: abdomen appears normal, Bowel sounds: active, all quadrants, Palpation: soft, in all quadrants, moderate abdominal tenderness, in all quadrants, rebound tenderness, is not appreciated, involuntary guarding, is not appreciated. 17:20 Back: pain, is absent, ROM is normal. 17:20 Neuro: Orientation: to person, place \\T\\ time. Mentation: is normal. Vital Signs: 16:37 Pulse 85; Resp 18; Temp 97.9(TE); Pulse Ox 100% on R/A; Weight 78 kg; Height 5 ft. 1 ld1 in. (154.94 cm); Pain 10/10; 16:41 BP 223 / 96; ld1 16:42 BP 221 / 99; ld1 20:16 BP 192 / 82; Pulse 85; Pulse Ox 90% ; vc1 21:50 BP 171 / 77; Pulse 84; Pulse Ox 90% ; vc1 22:30 BP 152 / 90; Pulse 92; Resp 20; Pulse Ox 100% on R/A; em6 23:30 BP 136 / 74; Pulse 100; Resp 20; Pulse Ox 100% on R/A; em6 06/02 00:45 BP 161 / 79; Pulse 94; Resp 14; Pulse Ox 94% ; jb4 01:30 BP 154 / 72; Pulse 92; Resp 22; Pulse Ox 96% on R/A; jb4 02:53 BP 140 / 74; Pulse 90; Resp 18; Pulse Ox 90% on R/A; ll3 08:00 BP 164 / 72; Pulse 83; Resp 18 S; Temp 97.6(TE); Pulse Ox 95% on R/A; aa5 06/01 16:37 Body Mass Index 32.49 (78.00 kg, 154.94 cm) ld1 MDM: 06/01 16:54 Patient medically screened. 06/02 01:45 Data reviewed: vital signs, nurses notes, lab test result(s), EKG. 01:45 Test interpretation: by ED physician or midlevel provider: ECG. Physician consultation: citlali Schmidt PA-C was contacted at 01:45, regarding admission, to the telemetry unit. patient's condition. 06/01 17:49 Order name: CBC with Diff; Complete Time: 20:26 06/01 20:51 Interpretation: Normal except: RBC 3.20; HGB 9.7; HCT 29.3; PLT 86; RDW 18.7; cp EOSINOPHIL % 5.1. 06/01 17:49 Order name: CMP; Complete Time: 21:54 06/01 21:54 Interpretation: Normal except: NA 135; K 5.8; ANION GAP 16.8; GLUC 123; BUN 85; CRE cp 10.90; GFR 4; A/G 1.0. 06/01 17:49 Order name: Lipase; Complete Time: 21:54 cp 06/01 17:49 Order name: Urine Microscopic Only 06/01 19:49 Order name: Magnesium; Complete Time: 20:51 06/01 23:18 Order name: Glucose, Ancillary Testing; Complete Time: 23:23 EDMS 06/02 00:15 Order name: Potassium; Complete Time: 01:32 cp 06/02 02:02 Order name: SARS RAPID ll3 06/02 06:31 Order name: Urine --Ancillary (enter results) mw2 12/13 06:31 Order name: Urine Dipstick-Ancillary EDMS 06/02 07:14 Order name: Urine --Ancillary EDID 06/02 07:44 Order name: Glucose, Ancillary Testing EDID 06/01 17:49 Order name: IV Saline Lock; Complete Time: 20:06 cp 06/01 17:49 Order name: Labs collected and sent; Complete Time: 20:06 cp 06/01 17:49 Order name: Urine Dipstick-Ancillary (obtain specimen); Complete Time: 06:31 cp 06/01 17:49 Order name: Urine Test (obtain specimen); Complete Time: 06:31 cp 06/01 21:56 Order name: EKG; Complete Time: 21:57 cp 06/01 21:56 Order name: EKG - Nurse/Tech; Complete Time: 23:18 cp Administered Medications: 06/01 19:41 Drug: Ondansetron 4 mg Route: PO; em6 20:00 Follow up: Response: No adverse reaction em6 20:12 Drug: Ativan (LORazepam) 0.5 mg Route: IVP; Site: Other; ph 21:00 Follow up: Response: No adverse reaction; RASS: Alert and Calm (0) em6 22:00 CANCELLED (Physician Discretion): Insulin Regular Human 7 units IVP once cp 22:25 Drug: D50W 50 ml Route: IVP; Site: Other; em6 23:00 Follow up: Response: No adverse reaction em6 22:25 Drug: Albuterol 2.5 mg Route: Inhalation; em6 22:25 Drug: Kayexalate (polystyrene) 15 grams Route: PO; em6 23:00 Follow up: Response: No adverse reaction em6 22:52 Drug: Albuterol 2.5 mg Route: Inhalation; em6 23:00 Drug: morphine 4 mg Route: IVP; Infused Over: 4 mins; Site: Other; em6 23:27 Follow up: Response: No adverse reaction; RASS: Alert and Calm (0) em6 23:06 Drug: Insulin Regular Human 10 units {Co-Signature: vc1 (Maria M Gonzalez RN).} Route: em6 IVP; Site: Other; 23:27 Follow up: Response: No adverse reaction em6 23:28 Drug: Albuterol 2.5 mg Route: Inhalation; em6 23:41 Follow up: Response: No adverse reaction em6 06/02 02:50 Drug: morphine 4 mg Route: IVP; Infused Over: 4 mins; Site: Other; 3 03:29 Not Given (Hemodynamic Parameters): cloNIDine 0.1 mg PO once; if systolic pressure >185 jb4 Point of Care Testing: Blood Glucose: 08:00 Blood Glucose: 84 mg/dL; aa5 Ranges: Critical Glucose Levels:Adult <50 mg/dl or >400 mg/dl <40 mg/dl or >180 mg/dl Disposition: 06/03 05:35 Co-signature as Attending Physician, Dinesh Stallworth MD. rn Disposition Summary: 06/02/22 01:57 Hospitalization Ordered Hospitalization Status: Observation cp Provider: Jose De Jesus Velásquez cp Condition: Stable cp Problem: new cp Symptoms: have improved cp Bed/Room Type: Standard cp Location: Telemetry/MedSurg (observation)(06/02/22 07:21) ja1 Room Assignment: 430(06/02/22 07:21) ja Diagnosis - End stage renal disease cp - Nausea with vomiting, unspecified cp - Abdominal pain, unspecified cp Forms: - Medication Reconciliation Form cp - SBAR form cp Signatures: Dispatcher [employer] EDMS Dinesh Stallworth MD MD rn Hall, Patricia, RN RN Luis Kat PA PA cp Garcia, Cindy, RN RN Rasta Jimenez RN RN ja1 Sarah Clark RN RN amrit1 Ryann Hogan RN RN ll3 Monica Maddox RN RN 6 Svetlana Schmidt PA-C PAAdela Pelaez RN RN mb9 Silverio Macias RN jb4 Maria M Gonzalez RN vc1 Corrections: (The following items were deleted from the chart) 06/01 22:00 21:56 Insulin Regular Human 7 units IVP once ordered. cp cp 06/02 02:22 01:57 Telemetry/MedSurg (observation) cp cg 02: 01:57 cp cg 07: 02:22 [facility] ER HOLD cg ja1 07 02:22 ERHOLD- cg ja1 06/03 05:21 06/02 17:20 Constitutional: The patient appears in no acute distress, alert, awake, cp non-diaphoretic, non-toxic, well developed, well nourished, uncomfortable, cp 06/03 05:06/02 17:20 Head/Face: Normocephalic, atraumatic. cp cp 06/03 05:06/02 17:20 Eyes: Periorbital structures: appear normal, Conjunctiva: normal, no cp exudate, no injection, Sclera: no appreciated abnormality, Lids and lashes: appear normal, bilaterally, cp 06/03 05:06/02 17:20 ENT: External ear(s): are unremarkable, Nose: is normal, Mouth: Lips: cp moist, Oral mucosa: moist, Posterior pharynx: Airway: no evidence of obstruction, patent, cp 06/03 05:06/02 17:20 Chest/axilla: Inspection: normal, cp cp 06/03 05:06/02 17:20 Cardiovascular: Rate: normal, Rhythm: regular, cp cp 06/03 05:06/02 17:20 Respiratory: the patient does not display signs of respiratory distress, cp Respirations: normal, no use of accessory muscles, no retractions, labored breathing, is not present, Breath sounds: are clear throughout, no decreased breath sounds, no stridor, no wheezing, cp 06/03 05:06/02 17:20 Abdomen/GI: Inspection: abdomen appears normal, Bowel sounds: active, all cp quadrants, Palpation: soft, in all quadrants, moderate abdominal tenderness, in all quadrants, rebound tenderness, is not appreciated, involuntary guarding, is not appreciated, cp 06/03 05:06/02 17:20 Back: pain, is absent, ROM is normal, cp cp 06/03 05:06/02 17:20 Neuro: Orientation: to person, place \\T\\ time. Mentation: is normal, cp cp
--- NOTE | 2022-06-02 01:57 | ER ---
Nurse's Notes [facility] Name: Cathi Zaldivar Age: 41 yrs Sex: Female : 1980 Arrival Date: 06/01/2022 Time: 16:18 Bed 4 Private MD: Diagnosis: End stage renal disease;Nausea with vomiting, unspecified;Abdominal pain, unspecified Presentation: 06/01 16:37 Chief complaint: Patient states: Left sided abdominal pain X 3 days. N/V. Coronavirus ld1 screen: At this time, the client does not indicate any symptoms associated with coronavirus-19. Ebola Screen: No symptoms or risks identified at this time. Initial Sepsis Screen: Does the patient meet any 2 criteria? No. Patient's initial sepsis screen is negative. Does the patient have a suspected source of infection? No. Patient's initial sepsis screen is negative. Risk Assessment: Do you want to hurt yourself or someone else? Patient reports no desire to harm self or others. Onset of symptoms was June 01, 2022. 16:37 Method Of Arrival: Wheelchair ld1 16:37 Acuity: JESSICA 3 ld1 Triage Assessment: 16:40 General: Appears in no apparent distress. uncomfortable, Behavior is calm, cooperative, ld1 appropriate for age. Pain: Complains of pain in abdomen Pain does not radiate. Pain currently is 10 out of 10 on a pain scale. Quality of pain is described as throbbing. EENT: No signs and/or symptoms were reported regarding the EENT system. Neuro: Level of Consciousness is awake, alert, obeys commands, Oriented to person, place, time, situation. Cardiovascular: Capillary refill < 3 seconds Patient's skin is warm and dry. Respiratory: Airway is patent Respiratory effort is even, unlabored. GI: Abdomen is round non-distended. GI: Reports lower abdominal pain, upper abdominal pain, nausea, vomiting. : No signs and/or symptoms were reported regarding the genitourinary system. Derm: No signs and/or symptoms reported regarding the dermatologic system. Musculoskeletal: No signs and/or symptoms reported regarding the musculoskeletal system. Historical: - Allergies: 16:40 ambien; ld1 16:40 Codeine; ld1 16:40 GUAIFENESIN; ld1 16:40 Lisinopril; ld1 16:40 Morphine; ld1 16:40 Nitrofurantoin Macrocrystal; ld1 16:40 PENICILLINS; ld1 16:40 Prolixin; ld1 16:40 zolpidem tartrate; ld1 - PMHx: 16:40 "mental problems"; CHF; chronic kidney disease; cyclic vomiting syndrome; Diabetes - ld1 NIDDM; Dialysis; m-w-f; ENCEPHALOPATHY; Gastroparesis; Hypertension; ibs; liver failure; PERIPHERAL NEUROPATHY; pseudo aneurysm R groin; Seizures; 06/02 07:00 Cardiac Arrest; mb9 - PSHx: 06/01 16:40 section; dialysis catheter R chest wall; eye removed; ld1 - Immunization history:: Adult Immunizations up to date, Client reports receiving the 2nd dose of the Covid vaccine. - Social history:: Smoking status: Patient denies any tobacco usage or history of. Patient/guardian denies using alcohol. Screenin:00 Abuse screen: Denies threats or abuse. Nutritional screening: No deficits noted. em6 Tuberculosis screening: No symptoms or risk factors identified. 20:00 Fall Risk Total Rios Fall Scale indicates No Risk (0-24 pts). em6 Assessment: 20:06 Reassessment: Pt is anuric; dialysis patient. ph 21:41 Reassessment: notified Luis ESQUEDA pt c/o pain no new orders received. bb 21:57 Reassessment: No changes from previously documented assessment. Patient and/or family vc1 updated on plan of care and expected duration. Pain level reassessed. 22:50 Reassessment: Patient appears in no apparent distress at this time. No changes from em6 previously documented assessment. Patient and/or family updated on plan of care and expected duration. Pain level reassessed. Patient is alert, oriented x 3, equal unlabored respirations, skin warm/dry/pink. 06/02 00:00 Reassessment: Patient appears in no apparent distress at this time. Patient and/or jb4 family updated on plan of care and expected duration. Pain level reassessed. Patient is alert, oriented x 3, equal unlabored respirations, skin warm/dry/pink. 01:00 Reassessment: Patient appears in no apparent distress at this time. Patient and/or jb4 family updated on plan of care and expected duration. Pain level reassessed. Patient is alert, oriented x 3, equal unlabored respirations, skin warm/dry/pink. 01:50 Reassessment: Patient appears in no apparent distress at this time. Patient and/or jb4 family updated on plan of care and expected duration. Pain level reassessed. Patient is alert, oriented x 3, equal unlabored respirations, skin warm/dry/pink. 07:00 Reassessment: Patient is alert, oriented x 3, equal unlabored respirations, skin aa5 warm/dry/pink. 07:38 Reassessment: Unsuccessful attempt to call report to admitting nurse, will attempt aa5 later. . 08:00 Reassessment: Patient is alert, oriented x 3, equal unlabored respirations, skin aa5 warm/dry/pink. Vital Signs: 06/01 16:37 Pulse 85; Resp 18; Temp 97.9(TE); Pulse Ox 100% on R/A; Weight 78 kg; Height 5 ft. 1 ld1 in. (154.94 cm); Pain 10/10; 16:41 BP 223 / 96; ld1 16:42 BP 221 / 99; ld1 20:16 BP 192 / 82; Pulse 85; Pulse Ox 90% ; vc1 21:50 BP 171 / 77; Pulse 84; Pulse Ox 90% ; vc1 22:30 BP 152 / 90; Pulse 92; Resp 20; Pulse Ox 100% on R/A; em6 23:30 BP 136 / 74; Pulse 100; Resp 20; Pulse Ox 100% on R/A; em6 12/13 00:45 BP 161 / 79; Pulse 94; Resp 14; Pulse Ox 94% ; jb4 01:30 BP 154 / 72; Pulse 92; Resp 22; Pulse Ox 96% on R/A; jb4 02:53 BP 140 / 74; Pulse 90; Resp 18; Pulse Ox 90% on R/A; ll3 08:00 BP 164 / 72; Pulse 83; Resp 18 S; Temp 97.6(TE); Pulse Ox 95% on R/A; aa5 06/01 16:37 Body Mass Index 32.49 (78.00 kg, 154.94 cm) ld1 ED Course: 06/01 16:18 Patient arrived in ED. rg4 16:35 Luis Ruvalcaba PA is PHCP. cp 16:35 José Miguel Saleh DO is Attending Physician. cp 16:40 Triage completed. ld1 16:40 Arm band placed on right wrist. ld1 20:00 Placed in gown. Bed in low position. Call light in reach. Side rails up X 1. Cardiac em6 monitor on. Pulse ox on. NIBP on. Warm blanket given. 20:10 Inserted saline lock: 22 gauge Blood collected. right upper breast. administered by em6 zain. 20:16 Maria M Gonzalez, RN is Primary Nurse. vc1 06/02 01:56 Jose De Jesus Velásquez MD is Hospitalizing Provider. cp 06:43 Attending Physician role handed off by José Miguel Saleh DO rn 06:43 Dinesh Stallworth MD is Attending Physician. rn 08:28 No provider procedures requiring assistance completed. Patient admitted, IV remains in aa5 place. Administered Medications: 06/01 19:41 Drug: Ondansetron 4 mg Route: PO; em6 20:00 Follow up: Response: No adverse reaction em6 20:12 Drug: Ativan (LORazepam) 0.5 mg Route: IVP; Site: Other; ph 21:00 Follow up: Response: No adverse reaction; RASS: Alert and Calm (0) em6 22:00 CANCELLED (Physician Discretion): Insulin Regular Human 7 units IVP once cp 22:25 Drug: D50W 50 ml Route: IVP; Site: Other; em6 23:00 Follow up: Response: No adverse reaction em6 22:25 Drug: Albuterol 2.5 mg Route: Inhalation; em6 22:25 Drug: Kayexalate (polystyrene) 15 grams Route: PO; em6 23:00 Follow up: Response: No adverse reaction em6 22:52 Drug: Albuterol 2.5 mg Route: Inhalation; em6 23:00 Drug: morphine 4 mg Route: IVP; Infused Over: 4 mins; Site: Other; em6 23:27 Follow up: Response: No adverse reaction; RASS: Alert and Calm (0) em6 23:06 Drug: Insulin Regular Human 10 units {Co-Signature: vc1 (Maria M Gonzalez RN).} Route: em6 IVP; Site: Other; 23:27 Follow up: Response: No adverse reaction em6 23:28 Drug: Albuterol 2.5 mg Route: Inhalation; em6 23:41 Follow up: Response: No adverse reaction em6 06/02 02:50 Drug: morphine 4 mg Route: IVP; Infused Over: 4 mins; Site: Other; 3 03:29 Not Given (Hemodynamic Parameters): cloNIDine 0.1 mg PO once; if systolic pressure >185 jb4 Medication: 06/01 20:00 VIS not applicable for this client. em6 Point of Care Testing: Blood Glucose: 06/02 08:00 Blood Glucose: 84 mg/dL; aa5 Ranges: Outcome: 01:57 Decision to Hospitalize by Provider. cp 08:25 Admitted to Tele accompanied by tech, via wheelchair, with chart, Report called to aa5 TABATHA Barker 08:25 Condition: stable 08:25 Instructed on the need for admit, Demonstrated understanding of instructions. 08:28 Patient left the ED. aa5 Signatures: Hawa Bustillos, RN RN Dinesh Cook MD MD rn Calderon, Audri RN RN aa5 Darleen Tucker RN RN ph Peg, Luis, PA PA Mari Roper rg4 Silverio Macias, RN TABATHA jb4 Sarah Clark RN RN ld1 Ryann Hogan RN RN ll3 Maria M Gonzalez RN RN vc1 Monica Maddox RN RN em6 Adela Decker RN RN mb9 Maria M Gonzalez RN vc1 Corrections: (The following items were deleted from the chart) 08:46 08:37 Patient left the ED. aa5 aa5
--- NOTE | 2022-06-02 02:14 | P.HP ---
Certification for Inpatient Patient admitted to: Observation With expected LOS: <2 Midnights Patient will require the following post-hospital care: None Practitioner: I am a practitioner with admitting privileges, knowledge of patient current condition, hospital course, and medical plan of care. Services: Services provided to patient in accordance with Admission requirements found in Title 42 Section 412.3 of the Code of Federal Regulations Patient History Date of Service: 06/02/22 Reason for admission: ESRD, Hyperkalemia History of Present Illness: Patient is a 41-year-old female with history of ESRD on HD, diabetes mellitus type 2insulin-dependent, gastroparesis, chronic diastolic congestive heart failure, hypertension, and seizure disorder who presented to the emergency department with complaints abdominal pain, nausea, and vomiting fpr 3 days. Patient reports this episode very similar to previous with gastroparesis. Her labs were significant for hyperkalemia with a potassium 5.8 with slightly peaked T waves. she has thrombocytopenia chronically her platelets are 86 and hemoglobin 9.7. ED provider wishes to admit for further evaluation and management, dialysis. Allergies zolpidem tartrate [From Ambien] Allergy (Intermediate, Verified 10/17/16 23:08) Itching/Hives/Rash codeine [Codeine] Allergy (Verified 10/17/16 23:08) Hives fluphenazine enanthate [From Prolixin] Allergy (Verified 10/17/16 23:08) ARM NUMBNESS fluphenazine HCl [From Prolixin] Allergy (Verified 10/17/16 23:08) ARM NUMBNESS guaifenesin [From Prolex D] Allergy (Verified 10/17/16 23:08) Hives lisinopril Allergy (Verified 04/21/17 10:26) Anaphylaxis morphine Allergy (Verified 10/01/20 10:03) Itching Penicillins Allergy (Verified 10/17/16 23:08) Hives phenylephrine HCl [From Prolex D] Allergy (Verified 10/17/16 23:08) Hives nitrofurantoin Adverse Reaction (Verified 08/07/17 23:41) liver failure Home Medications: Furosemide [Lasix*] 80 mg PO BID 09/30/20 Metoclopramide [Reglan*] 5 ml PO TID PRN 07/31/21 Buspirone HCl [Buspar] 1 tab PO BID 08/22/21 Divalproex Sodium [Depakote] 1 tab PO BID 08/22/21 Ascorbate Calcium [Vitamin C] 500 mg PO BID 09/08/21 Diphenhydramine [Benadryl*] 25 mg PO Q6HP PRN #30 tab 09/10/21 Quetiapine Fumarate [Seroquel] 100 mg PO BEDTIME 10/09/21 Losartan Potassium [Cozaar*] 50 mg PO BID #60 tablet 10/10/21 Metoprolol Succinate [Toprol Xl*] 25 mg PO BID #60 tab 10/10/21 Clopidogrel Bisulfate [Plavix*] 75 mg PO DAILY 03/25/22 Folic Acid/Vit B Complex and C [Dialyvite 800 Chewable Wafer] 800 mcg PO DAILY 03/25/22 Hydralazine HCl 50 mg PO TID 03/25/22 Metoclopramide HCl [Reglan] 5 mg PO AC #90 03/25/22 Metoclopramide HCl [Reglan] 5 mg PO AC #90 tab 03/25/22 Nepro Shake [Nepro*] 237 ml PO TID #90 can 03/25/22 Olanzapine [Zyprexa] 5 mg PO DAILY 03/25/22 Pantoprazole [Protonix Tab*] 40 mg PO DAILY #30 tab 03/25/22 Pregabalin 25 mg PO DAILY 03/25/22 Valsartan 160 mg PO DAILY 03/25/22 - Past Medical/Surgical History Diabetic: Yes -: Chronic Diastolic CHF -: ESRD on HD -: Gastroporesis -: DM -: Obesity -: Schizoaffective Disorder -: HTN -: Post Traumatic Stress Disorder -: x 2 -: Tubal ligation -: Stents RUE, RLE & subclavian -: Right groin "aneurysm" -: RUE fistula for dialysis Psychosocial/ Personal History: She is , she has 2 children, she does not work. She lives with her boyfriend and daughter. - Family History Mother -: Hypertension, Diabetes, Cancer, Other (see notes) Notes: hypothyroid, asthma, breast cancer Father -: Diabetes, Cancer Notes: - stomach/ lung/ prostate cancer, diabetes - Social History Smoking Status: Never smoker Alcohol use: No CD- Drugs: No Caffeine use: No Place of Residence: Home Review of Systems Gastrointestinal: Nausea, Vomiting, Abdominal Pain Physical Examination - Vital Signs Temperature: 97.9 F Blood Pressure: 154/72 Pulse: 92 Respirations: 20 Pulse Ox (%): 96 (room air) - Physical Exam General: Alert, In no apparent distress, Obese HEENT: Atraumatic, PERRLA, EOMI, Sclerae nonicteric Neck: Supple, 2+ carotid pulse no bruit Respiratory: Clear to auscultation bilaterally, Normal air movement Cardiovascular: Regular rate/rhythm, Normal S1 S2 Gastrointestinal: Normal bowel sounds, No tenderness Musculoskeletal: No tenderness Integumentary: No rashes Neurological: Normal speech, Normal affect - Studies Laboratory Data (last 24 hrs) 06/02/22 01:07: Potassium 4.5 D 06/01/22 20:00: Magnesium 1.9 06/01/22 20:00: Sodium 135 L, Potassium 5.8 H*, BUN 85 H, Creatinine 10.90 H*, Glucose 123 H, Total Bilirubin 0.6, AST 19, ALT 13, Alkaline Phosphatase 73, Lipase 159 06/01/22 20:00: WBC 5.50, Hgb 9.7 L, Hct 29.3 L, Plt Count 86 L* Assessment and Plan - Problems (Diagnosis) (1) Gastroparesis Current Visit: Yes Status: Chronic (2) Hyperkalemia Current Visit: Yes Status: Acute (3) CHF (congestive heart failure) Current Visit: Yes Status: Chronic Qualifiers: Heart failure type: diastolic Heart failure chronicity: chronic Qualified Code(s): I50.32 - Chronic diastolic (congestive) heart failure (4) Chronic kidney disease, stage 5, kidney failure Current Visit: Yes Status: Chronic (5) Diabetes mellitus Current Visit: Yes Status: Chronic Qualifiers: Diabetes mellitus type: type 2 Diabetes mellitus snf insulin use: without snf use Diabetes mellitus complication status: with kidney complications Diabetes mellitus complication detail: with chronic kidney disease Chronic kidney disease stage: on chronic dialysis Qualified Code(s): E11.22 - Type 2 diabetes mellitus with diabetic chronic kidney disease; N18.6 - End stage renal disease; Z99.2 - Dependence on renal dialysis - Plan Patient is admitted for observation. Nephrology consulted as patient will need HD. Potassium down to 4.5 from 5.8 after albuterol, insulin, kayexalate. ACHS accu checks with moderate sliding scale. Thrombocytopenia and anemia are chronic, appear stable per chart review. Monitor and replete electrolytes per protocol. Reconcile and continue home medications. SCDs for VTE prophylaxis. Full code. Discharge Plan: Home Plan to discharge in: 24 Hours - Advance Directives Does patient have a Living Will: No Does patient have a Durable POA for Healthcare: Yes - Code Status/Comfort Care Code Status Assessed: Yes Code Status: Full Code Physician Review: Patient Assessed, Agree with Above Assessment and Plan Critical Care: No Time Spent Managing Pts Care (In Minutes): 50
[2022-06-02] MEDS ORDERED: MORPHINE 4 MG/ML SYR ONE (02:49)
[2022-06-02 03:31] LABS: SARS-CoV-2 Antigen Rapid Res Negative (Negative)
[2022-06-02] MEDS ORDERED: ACETAMINOPHEN 325 MG TABLET PO PRN (03:51)
[2022-06-02 04:20] VITALS: BMI 32.3
[2022-06-02 06:31] LABS: Urine Blood 2+ (Negative); Urine Glucose Trace (Negative); Urine Protein 3+ (Negative); Urine pH 7.5 (5.0-7.0)
[2022-06-02] MEDS: INSULIN -REGULAR HUMAN 50 UNIT/0.5 ML ML SQ SCH ×4 (07:30→21:00)
[2022-06-02] MEDS: ONDANSETRON 4 MG/2 ML VIAL IV PRN ×2 (09:35→14:35)
[2022-06-02] MEDS ORDERED: METOCLOPRAMIDE 5 MG TAB PO PRN (10:13)
[2022-06-02] MEDS ORDERED: DIPHENHYDRAMINE 25 MG TAB/CAP PO PRN (10:13)
[2022-06-02] MEDS ORDERED: HYDROCODONE/APAP 10/325 TAB PO PRN (10:15)
[2022-06-02] MEDS: HYDRALAZINE HCL 25 MG TABLET PO SCH ×2 (14:08→21:40)
[2022-06-02] MEDS: NEPRO SHAKE 237 ML CAN PO SCH ×2 (14:09→21:00)
--- NOTE | 2022-06-02 14:35 | EKG ---
Test Date: 2022-06-01 Test Time: 23:13:42 Data Steward: MEASUREMENT RESULTS: Intervals: Rate: 103 MA: 158 QRSD: 86 QT: 368 QTc: 482 Morris: P: 71 MA: 158 QRS: 59 T: 65 INTERPRETIVE STATEMENTS: Sinus tachycardia Possible Left atrial enlargement Borderline ECG Compared to ECG 12/05/2021 16:45:43 Accelerated junctional rhythm no longer present Right-axis deviation no longer present Electronically Signed On 06-02-22 14:34:01 [employer] by Maximilian Mcnally
[2022-06-02] MEDS ORDERED: HYDRALAZINE HCL 20 MG/ML VIAL IV ONE ×2 (16:12→17:00)
[2022-06-02] MEDS: FUROSEMIDE 40 MG TABLET PO SCH (17:00)
[2022-06-02] MEDS ORDERED: HYDROMORPHONE HCL 0.5 MG/0.5 ML INJ IV PRN (17:45)
[2022-06-02] MEDS ORDERED: LORazepam 2 MG/ML VIAL IV ONE (17:51)
[2022-06-02] MEDS: METOCLOPRAMIDE 10 MG/2mL INJ IV SCH (18:29)
[2022-06-02] MEDS ORDERED: LORazepam 2 MG/ML VIAL IV PRN (20:00)
[2022-06-02] MEDS ORDERED: LOSARTAN POTASSIUM 50 MG TABLET PO SCH (21:00)
[2022-06-02] MEDS ORDERED: LABETALOL 20 MG/4ML SYRINGE IV PRN (21:13)
--- NOTE | 2022-06-02 21:15 | P.CNS ---
Date of Consult: 06/02/22 Reason for Consult: ESRD Requesting Physician: Jose De Jesus Velásquez Chief Complaint: ESRD, Hyperkalemia History of Present Illness: Patient is a 41-year-old female with history of ESRD on HD, diabetes mellitus type 2insulin-dependent, gastroparesis, chronic diastolic congestive heart failure, hypertension, and seizure disorder who presented to the emergency department with complaints abdominal pain, nausea, and vomiting fpr 3 days. Patient reports this episode very similar to previous with gastroparesis. Her labs were significant for hyperkalemia with a potassium 5.8 with slightly peaked T waves. she has thrombocytopenia chronically her platelets are 86 and hemoglobin 9.7. ED provider wishes to admit for further evaluation and management, dialysis. [facility] 16:37 Chief complaint: Patient states: Left sided abdominal pain X 3 days. N/V. Coronavirus ld1 screen: At this time, the client does not indicate any symptoms associated with coronavirus-19. Ebola Screen: No symptoms or risks identified at this time. Initial Sepsis Screen: Does the patient meet any 2 criteria? No. Patient's initial sepsis screen is negative. Does the patient have a suspected source of infection? No. Patient's initial sepsis screen is negative. Risk Assessment: Do you want to hurt yourself or someone else? Patient reports no desire to harm self or others. Onset of symptoms was June 01, 2022. Allergies zolpidem tartrate [From Ambien] Allergy (Intermediate, Verified 10/17/16 23:08) Itching/Hives/Rash codeine [Codeine] Allergy (Verified 10/17/16 23:08) Hives fluphenazine enanthate [From Prolixin] Allergy (Verified 10/17/16 23:08) ARM NUMBNESS fluphenazine HCl [From Prolixin] Allergy (Verified 10/17/16 23:08) ARM NUMBNESS guaifenesin [From Prolex D] Allergy (Verified 10/17/16 23:08) Hives lisinopril Allergy (Verified 04/21/17 10:26) Anaphylaxis morphine Allergy (Verified 10/01/20 10:03) Itching Penicillins Allergy (Verified 10/17/16 23:08) Hives phenylephrine HCl [From Prolex D] Allergy (Verified 10/17/16 23:08) Hives nitrofurantoin Adverse Reaction (Verified 08/07/17 23:41) liver failure Home medications list reviewed: Yes Home Medications: Furosemide [Lasix*] 80 mg PO BID 09/30/20 Metoclopramide [Reglan*] 5 ml PO TID PRN 07/31/21 Buspirone HCl [Buspar] 1 tab PO BID 08/22/21 Divalproex Sodium [Depakote] 1 tab PO BID 08/22/21 Ascorbate Calcium [Vitamin C] 500 mg PO BID 09/08/21 Diphenhydramine [Benadryl*] 25 mg PO Q6HP PRN #30 tab 09/10/21 Quetiapine Fumarate [Seroquel] 100 mg PO BEDTIME 10/09/21 Losartan Potassium [Cozaar*] 50 mg PO BID #60 tablet 10/10/21 Metoprolol Succinate [Toprol Xl*] 25 mg PO BID #60 tab 10/10/21 Clopidogrel Bisulfate [Plavix*] 75 mg PO DAILY 03/25/22 Folic Acid/Vit B Complex and C [Dialyvite 800 Chewable Wafer] 800 mcg PO DAILY 03/25/22 Hydralazine HCl 50 mg PO TID 03/25/22 Nepro Shake [Nepro*] 237 ml PO TID #90 can 03/25/22 Olanzapine [Zyprexa] 5 mg PO DAILY 03/25/22 Pantoprazole [Protonix Tab*] 40 mg PO DAILY #30 tab 03/25/22 Pregabalin 25 mg PO DAILY 03/25/22 Valsartan 160 mg PO DAILY 03/25/22 - Past Medical/Surgical History Diabetic: Yes -: Chronic Diastolic CHF -: ESRD on HD (Dr. Morin) -: Gastroporesis -: DM II with CKD, Polyneuropathy, Gastroparesis -: Obesity -: Schizoaffective Disorder -: HTN -: Post Traumatic Stress Disorder -: x 2 -: Tubal ligation -: Stents RUE, RLE & subclavian -: Right groin "aneurysm" -: RUE fistula for dialysis -: RUE fistula for dialysis Psychosocial/ Personal History: She is , she has 2 children, she does not work. She lives with her boyfriend and daughter. - Family History Mother Medical History: Hypertension, Diabetes, Cancer, Other (see notes) Notes: hypothyroid, asthma, breast cancer Father Medical History: Diabetes, Cancer Notes: - stomach/ lung/ prostate cancer, diabetes - Social History Smoking Status: Current every day smoker Alcohol use: No CD- Drugs: No Caffeine use: No Place of Residence: Home Review of Systems 10-point ROS is otherwise unremarkable General: Weakness, Malaise Gastrointestinal: Nausea, Vomiting, Abdominal Pain Neurological: Weakness Physical Examination Temp Pulse Resp BP Pulse Ox 97.3 F 78 16 210/98 H 90 L 06/02/22 16:00 06/02/22 16:00 06/02/22 16:00 06/02/22 16:00 06/02/22 16:00 General: Oriented x3, Cooperative HEENT: Atraumatic Neck: Supple Respiratory: Clear to auscultation bilaterally, Diminished Cardiovascular: Regular rate/rhythm Gastrointestinal: Non-distended, Tenderness Musculoskeletal: No clubbing, No contractures Integumentary: No rashes Neurological: Normal speech Laboratory Data (last 24 hrs) 06/02/22 01:07: Potassium 4.5 D 06/01/22 20:00: Sodium 135 L, Potassium 5.8 H*, BUN 85 H, Creatinine 10.90 H*, Glucose 123 H, Total Bilirubin 0.6, AST 19, ALT 13, Alkaline Phosphatase 73, Lipase 159 Conclusions/Impression: ESRD on HD Proteinuria -HD TIW Hyponatremia Hyperkalemia -HD TIW HTN with CKD/ CHF -Hydralazine and Labetolol PRN -Continue Hydralazine Diastolic CHF, chronic -Low sodium diet -HD with UF DM II with CKD, Polyneuropathy & Gastroparesis -RISS Anemia in CKD -Monitor H&H -Start Retacrit CKD MBD -Start Ergo Gastroenteritis of unclear etiology Reports eating oysters on Wednesday -Continue supportive care Case reviewed with Dr. Velásquez Thank you kindly for the consultation
[2022-06-02] MEDS ORDERED: HYDRALAZINE HCL 20 MG/ML VIAL IV PRN (21:16)
[2022-06-02] MEDS ORDERED: NA CHLORIDE 0.9% 1,000 ML IV PRN (21:31)
[2022-06-02] MEDS ORDERED: MANNITOL 25% 12.5 GM/50 ML VIAL IV PRN (21:31)
[2022-06-02] MEDS: ASCORBIC ACID 500 MG TABLET PO SCH (21:40)
[2022-06-02] MEDS: METOPROLOL XL 25 MG TAB PO SCH (21:40)
[2022-06-02] MEDS: DIVALPROEX DR 500MG TAB PO SCH (21:40)
[2022-06-02] MEDS: BUSPIRONE HCL 15 MG TABLET PO SCH (21:40)
[2022-06-02] MEDS: LOSARTAN POTASSIUM 50 MG TABLET PO SCH (21:40)
[2022-06-02] MEDS: QUETIAPINE 100MG TAB PO SCH (21:40)
[2022-06-02] MEDS ORDERED: ALBUMIN HUMAN 25% 50 ML IV SCH (22:00)
[2022-06-03] MEDS: METOCLOPRAMIDE 10 MG/2mL INJ IV SCH ×3 (03:00→17:00)
[2022-06-03 04:22] LABS: Lymphocytes % 31.9 % (15.3-44.8); MCV 91.2 fL (80-100); MPV 10.8 fL (7.6-11.3); RBC Red Blood Cell Count 3.17 M/uL (3.86-4.86)
[2022-06-03 04:31] LABS: AST/SGOT 11 U/L (15-37); Alkaline Phosphatase 62 U/L (45-117); BUN Blood Urea Nitrogen 102 mg/dL (7-18); Bicarbonate 23 mmol/L (21-32); Bilirubin Total 0.6 mg/dL (0.2-1.0); Glomerular Filtration Rate 4 ml/min (=/>90); Glucose Level 92 mg/dL (74-106); Phosphorus 8.3 mg/dL (2.5-4.9); Sodium Level 134 mmol/L (136-145)
[2022-06-03 04:33] LABS: ALT/SGPT < 10 U/L (13-56)
[2022-06-03 04:34] LABS: Potassium 7.6 mmol/L (3.5-5.1)
[2022-06-03] MEDS ORDERED: SOD POLYSTYREN SUL 15 GM/60 ML UCUP PO ONE (04:46)
[2022-06-03] MEDS ORDERED: D50W 25 GM/50 ML SYRINGE IV PRN (04:46)
[2022-06-03] MEDS ORDERED: GLUCAGON 1 MG/VIAL IM PRN (04:46)
[2022-06-03] MEDS ORDERED: ALBUTEROL 2.5 MG/3 ML NEB SOL NEB ONE (04:46)
[2022-06-03] MEDS ORDERED: INSULIN -REGULAR HUMAN 50 UNIT/0.5 ML ML IV ONE (04:47)
[2022-06-03] MEDS: D10W 250 ML IV SCH ×2 (05:09→07:35)
[2022-06-03] MEDS ORDERED: WATER FOR INJ,STERILE 10 ML ONE (07:24)
[2022-06-03] MEDS: INSULIN -REGULAR HUMAN 50 UNIT/0.5 ML ML SQ SCH ×3 (07:30→16:30)
[2022-06-03] MEDS ORDERED: D10W 250 ML IV ONE ×2 (07:34→09:00)
[2022-06-03] MEDS ORDERED: D50W 25 GM/50 ML SYRINGE IV ONE (08:22)
[2022-06-03] MEDS: DEXTROSE 10%-WATER 500 ML IV ONE ×2 (08:27→08:47)
[2022-06-03] MEDS: clonazePAM 0.5 MG TAB PO SCH ×3 (09:00→20:10)
[2022-06-03] MEDS ORDERED: DRISDOL (VITAMIN D=ERGOCALCIFEROL) 50000 UNIT CAP PO SCH (09:00)
[2022-06-03] MEDS ORDERED: VALSARTAN 160 MG TAB PO SCH (09:00)
[2022-06-03] MEDS: METOPROLOL XL 25 MG TAB PO SCH ×2 (09:00→20:11)
[2022-06-03] MEDS: NEPRO SHAKE 237 ML CAN PO SCH ×3 (09:00→20:10)
[2022-06-03] MEDS: FUROSEMIDE 40 MG TABLET PO SCH ×2 (09:00→17:51)
[2022-06-03] MEDS: LOSARTAN POTASSIUM 50 MG TABLET PO SCH ×2 (09:00→20:10)
[2022-06-03] MEDS: PREGABALIN 50 MG CAP PO SCH (09:00)
[2022-06-03] MEDS: HYDRALAZINE HCL 25 MG TABLET PO SCH ×3 (09:00→20:10)
[2022-06-03] MEDS ORDERED: EPOETIN ALFA-EPBX 10,000 UNIT/ML VIAL SQ SCH (09:00)
[2022-06-03] MEDS: BUSPIRONE HCL 15 MG TABLET PO SCH ×2 (09:00→20:10)
[2022-06-03 09:02] LABS: Blood Morphology Comment NOTED (NOT SEEN); Platelet Estimate DECR; White Blood Cell Scan OK (OK)
[2022-06-03 09:03] LABS: Anisocytosis SLIGHT
[2022-06-03] MEDS: MULTIVITAMINS,THERAPEUT 1 TAB PO SCH (09:41)
[2022-06-03] MEDS: DIVALPROEX DR 500MG TAB PO SCH ×2 (09:41→20:10)
[2022-06-03] MEDS: CLOPIDOGREL 75 MG TABLET PO SCH (09:41)
[2022-06-03] MEDS: ASCORBIC ACID 500 MG TABLET PO SCH ×2 (09:41→20:11)
[2022-06-03] MEDS: OLANZapine 2.5 MG TAB PO SCH (09:41)
[2022-06-03] MEDS: PANTOPRAZOLE 40MG TABLET PO SCH (09:42)
--- NOTE | 2022-06-03 10:58 | P.PN ---
Nephrology note: (S) Pt has missed two HD sessions, last HD last Wed, not able to give a good explanation for why she has missed so many treatments. Received Insulin/dextrose early this AM for severe hyperkalemia on labs, pt did experience hypoglycemia afterwards but has recovered although does appear mildly confused. General: NAD HEENT: Atraumatic, sclera anicteric, facial edema, NC Neck: Supple Respiratory: b/l air entry, reduced at bases Cardiovascular: Regular rate/rhythm Gastrointestinal: Soft, obese, ND, NT Musculoskeletal: No clubbing, No contractures, no sig LE edema Integumentary: No rashes, shins are non tender Neurological: A bit lethargic, responds but is only partially oriented, no tremors or myoclonus Laboratory Data (last 24 hrs) Reviewed in the EMR Conclusions/Impression: ESRD on HD 2nd to DM/HTN -Missed HD sessions, emergent HD for metab clearance and UF today. Marked azotemia, monitor for any dialysis disequlibrium with clearance Severe hyperkalemia Will dialyze with 1K bath for 1st hr and then 2K for the remainder and recheck K level 2h post HD HTN with CKD/ CHF. Chronic diastolic CHF -Seek to restore EDW, UF goal of 3L ordered, f/u post HD BP Hyperphosphatemia -Will clear some with HD, will order home phos binders. Walker Yusuf MD, [facility]
[2022-06-03] MEDS: CALCIUM ACETATE 667 MG TAB PO SCH ×2 (12:00→17:51)
[2022-06-03] MEDS: QUETIAPINE 100MG TAB PO SCH (20:10)
[2022-06-04] MEDS: METOCLOPRAMIDE 10 MG/2mL INJ IV SCH ×3 (01:00→16:23)
[2022-06-04 07:26] LABS: Absolute Lymphocytes (CBC) 0.9 K/uL (0.7-4.9); Hematocrit 26.6 % (36.0-45.0); Lymphocytes % 25.6 % (15.3-44.8); MCV 90.7 fL (80-100); MPV 10.6 fL (7.6-11.3); RBC Red Blood Cell Count 2.94 M/uL (3.86-4.86)
[2022-06-04 07:59] LABS: Albumin 2.8 g/dL (3.4-5.0); Bilirubin Total 0.7 mg/dL (0.2-1.0)
[2022-06-04] MEDS: NEPRO SHAKE 237 ML CAN PO SCH ×2 (08:30→13:38)
[2022-06-04] MEDS: HYDRALAZINE HCL 25 MG TABLET PO SCH ×2 (08:31→13:38)
[2022-06-04] MEDS: OLANZapine 2.5 MG TAB PO SCH (08:31)
[2022-06-04] MEDS: PANTOPRAZOLE 40MG TABLET PO SCH (08:31)
[2022-06-04] MEDS: METOPROLOL XL 25 MG TAB PO SCH (08:31)
[2022-06-04] MEDS: CALCIUM ACETATE 667 MG TAB PO SCH ×3 (08:31→16:22)
[2022-06-04] MEDS: MULTIVITAMINS,THERAPEUT 1 TAB PO SCH (08:31)
[2022-06-04] MEDS: LOSARTAN POTASSIUM 50 MG TABLET PO SCH (08:31)
[2022-06-04] MEDS: BUSPIRONE HCL 15 MG TABLET PO SCH (08:32)
[2022-06-04] MEDS: CLOPIDOGREL 75 MG TABLET PO SCH (08:32)
[2022-06-04] MEDS: FUROSEMIDE 40 MG TABLET PO SCH ×2 (08:32→16:22)
[2022-06-04] MEDS: ASCORBIC ACID 500 MG TABLET PO SCH (08:32)
[2022-06-04] MEDS: PREGABALIN 50 MG CAP PO SCH (08:32)
[2022-06-04] MEDS: clonazePAM 0.5 MG TAB PO SCH ×2 (08:32→13:38)
[2022-06-04] MEDS: DIVALPROEX DR 500MG TAB PO SCH (08:32)
[2022-06-04 10:34] VITALS: O2SAT 96
[2022-06-04 12:52] VITALS: TEMP 97.7
[2022-06-04 16:46] VITALS: BP 194/85
--- NOTE | 2022-06-04 20:52 | P.PN ---
Date of Service: 06/04/22 Vital Signs Temp Pulse Resp BP Pulse Ox 97.7 F 73 18 194/85 H 95 06/04/22 16:00 06/04/22 16:00 06/04/22 16:00 06/04/22 16:00 06/04/22 16:00 Assessment/ Plan: Nephrology No dyspnea No chest pain Her GI symptoms have improved No acute events overnight Vitals, medications, blood work and imaging reviewed in the chart. General: Oriented x3, Cooperative HEENT: Atraumatic Neck: Supple Respiratory: Clear to auscultation bilaterally, Diminished Cardiovascular: Regular rate/rhythm Gastrointestinal: Non-distended, Tenderness Musculoskeletal: No clubbing, No contractures Integumentary: No rashes Neurological: Normal speech Laboratory Data (last 24 hrs) 06/02/22 01:07: Potassium 4.5 D 06/01/22 20:00: Sodium 135 L, Potassium 5.8 H*, BUN 85 H, Creatinine 10.90 H*, Glucose 123 H, Total Bilirubin 0.6, AST 19, ALT 13, Alkaline Phosphatase 73, Lipase 159 Conclusions/Impression: ESRD on HD Proteinuria -HD TIW; Next HD on Wednesday Hyponatremia Hyperkalemia -HD TIW HTN with CKD/ CHF -Hydralazine and Labetolol PRN -Continue Hydralazine Diastolic CHF, chronic -Low sodium diet -HD with UF DM II with CKD, Polyneuropathy & Gastroparesis -RISS Anemia in CKD -Monitor H&H -Continue Retacrit CKD MBD -Continue Ergo Gastroenteritis may be norovirus Reports eating oysters on Wednesday -Continue supportive care Case reviewed with Dr. Velásquez
[2022-06-04] MEDS ORDERED: ENSURE HIGH PROTEIN 237 ML CAN PO SCH (21:00)
== END 2022-06-04 19:14 | disposition left against medical advice (07) | DRG 291 ==
LOC: ER 16:13 → ERHOLD 06-02 02:08 → 4TH 06-02 08:06 → OBSVTOIN 06-03 12:15
PROVIDERS: ADMIT Hospitalist; ATTEND Hospitalist
PROC: 5A1D70Z Performance of Urinary Filtration, Intermittent, Less than 6 Hours Per Day (ICD-10-PCS; principal; 2022-06-03)
DX: I13.2 Hypertensive heart and chronic kidney disease with heart failure and with stage 5 chronic kidney disease, or end stage renal disease (principal); N18.6 End stage renal disease; A08.11 Acute gastroenteropathy due to Norwalk agent; E87.1 Hypo-osmolality and hyponatremia; E87.5 Hyperkalemia; I50.32 Chronic diastolic (congestive) heart failure; E11.22 Type 2 diabetes mellitus with diabetic chronic kidney disease; Z99.2 Dependence on renal dialysis; Z91.15 Patient's noncompliance with renal dialysis; D63.1 Anemia in chronic kidney disease; Z53.29 Procedure and treatment not carried out because of patient's decision for other reasons; E11.43 Type 2 diabetes mellitus with diabetic autonomic (poly)neuropathy; K31.84 Gastroparesis; D69.6 Thrombocytopenia, unspecified; G40.909 Epilepsy, unspecified, not intractable, without status epilepticus; F25.9 Schizoaffective disorder, unspecified; E16.2 Hypoglycemia, unspecified; E83.39 Other disorders of phosphorus metabolism; R80.9 Proteinuria, unspecified; F43.10 Post-traumatic stress disorder, unspecified; E66.9 Obesity, unspecified; Z68.32 Body mass index [BMI] 32.0-32.9, adult; F17.200 Nicotine dependence, unspecified, uncomplicated; Z20.822 Contact with and (suspected) exposure to COVID-19; Z79.4 Long term (current) use of insulin; Z79.02 Long term (current) use of antithrombotics/antiplatelets; Z79.899 Other long term (current) drug therapy; Z88.0 Allergy status to penicillin; Z88.5 Allergy status to narcotic agent; Z88.8 Allergy status to other drugs, medicaments and biological substances; Z95.828 Presence of other vascular implants and grafts; Z82.49 Family history of ischemic heart disease and other diseases of the circulatory system; Z83.3 Family history of diabetes mellitus; Z82.5 Family history of asthma and other chronic lower respiratory diseases; Z80.0 Family history of malignant neoplasm of digestive organs; Z80.1 Family history of malignant neoplasm of trachea, bronchus and lung; Z80.3 Family history of malignant neoplasm of breast; Z80.42 Family history of malignant neoplasm of prostate
CPT/HCPCS: 36415; 80053; 81003; 81025; 82947; 83036; 83690; 83735; 84100; 84132; 85025; 87811; 90935; 93005; 94760; 96374; 96375; 99285; G0378; J0360; J1610; J1815; J2405; J2765; J7613; Q0162; Q5106

== ENCOUNTER 2022-06-14 17:47 | Emergency (ER) | payer MEDICARE, OTHER ==
--- OUTSIDE RECORDS SUMMARY | 2022-06-14 18:18 | XMS REPORT | Continuity of Care Document ---
:1980 Author Organization [facility] t Address [address] [place] [address] Care Team Providers Name Role Phone SHARPLESS Primary Care Physician Unavailable Nodal_J Attending Clinician Unavailable Deshazo_T Attending Clinician Unavailable RAJ WEST Attending Clinician Unavailable Jose Miguel Morin DO Attending Clinician Brooke Gallegos MD Attending Clinician Bessie Phillips Attending Clinician Forrest Cruz Attending Clinician Unavailable Melany Gilbert Attending Clinician Pat BURNS, Sivan Brand Attending Clinician Isra BURNS, Rachel Lew Attending Clinician [phone] Robe BURNS, Holden Elmore Attending Clinician Magaly BURNS, Shanda Higuera Attending Clinician Endy BURNS, Aurelio Attending Clinician Alesia Dodd Attending Clinician Joe BURNS, Mando Raphael Attending Clinician [phone] Jose Carlos BURNS, Veto Vincent Attending Clinician Pati BURNS, Juwan Attending Clinician Doc BURNS, Sofi Juárez Attending Clinician [phone] Robert MAYS, Gayle Attending Clinician Unavailable [...] MAYS, Elodia Attending Clinician Unavailable Doctor Unassigned, Salvo Attending Clinician Unavailable MONA BHAT Attending Clinician Unavailable Missy Garcia RN Attending Clinician Unavailable Jimena Easton DO Attending Clinician Arun BURNS, Eze Vail Attending Clinician Laforte MD, Obed A Attending Clinician Monisha Bajwa Attending Clinician MONISHA BAJWA Attending Clinician Unavailable Alexandr Diane MD Attending Clinician OZ KIMBLE Attending Clinician Unavailable Hui Wright Attending Clinician HUI WRIGHT Attending Clinician Unavailable JOSE LUIS GONZALEZ Attending Clinician Unavailable Oz Kimble MD Attending Clinician Jose Luis Gonzalez MD Attending Clinician Earl Sanchez DO Attending Clinician DEJA CLEANING Attending Clinician Unavailable Deja Cleaning DPM Attending Clinician [phone] Pc, [facility] Echo Room 1 - Attending Clinician Unavailable Visit, Adc Nurse Attending Clinician Unavailable 2, [facility] Lab Attending Clinician Unavailable Mona Bhat MD [...] Arun Espitia MD, Victor J Admitting Clinician [phone] Hui Wright Admitting Clinician HUI WRIGHT Admitting Clinician Unavailable Rei Waldron Admitting Clinician Unavailable MOISE BHAKTA Admitting Clinician Unavailable Danae Cha Admitting Clinician Joe Juárez Admitting Clinician Payers Payer Name Policy Type Policy Number Effective Date Expiration Date S karla MEDICARE PART A AND [id number] 2014 2021 B 00:00:00 00:00:00 [employer] [facility] [id number] 2020 00:00:00 MEDICARE PART A \\T\\ [id number] 2014 B 00:00:00 MEDICAID OF [place] [id number] 2020 00:00:00 [employer] [facility] [id number] 2021 (MEDICARE 00:00:00 REPLACEMENT HMO) MEDICARE A B [id number] 2014 00:00:00 [place] [id number] 2016 00:00:00 Problems Condition Condition Condition Status [...] 21:41:00 l /ANEMIA D/ANEMIA 00:00: Vin Active 00 01/03/2021 [facility] NEW NEW Diagnosis Active 2020-12-24 Mem oria PATIENT GI PATIENT GI 10-14 10:39:00 l CONSULT CONSULT 00:00: Vin REFRACTORY REFRACTORY 00 GASTRO GASTRO Active 10/14/2020 [facility] Malfunctio Malfunctio Disease Active Overview : Univers n of n of 6-03 Formattin ity of arterioven arterioven 00:00: g of this [place] ous ous 00 note Medical dialysis dialysis might be Bran ch fistula, fistula, different initial initial from the encounter encounter original. Added automatic ally from request for surgery [id number] Candidiasi Candidiasi Disease Active U nivers s of vulva s of vulva 2-18 it y of and vagina [place] [facility] Branch Screening Screening Disease Active Uni vers for breast for breast 2-18 it y of cancer cancer 00:00: [place] 00 [facility] Branch NEW NEW Diagnosis Active 2018-07-26 Mem oria EVALUATION EVALUATION 07-12 09:39:00 l Active 00:00: Vin 07/12/2018 00 [facility] Pyogenic Pyogenic Disease Active 2017-06 Overview: Un lori granuloma granuloma 0-17 Formattin i ty of of of 00:00: g of this [place] conjunctiv conjunctiv 00 note Me dical a, right a, right might be Bran ch different from the original. Added automatic ally from request for surgery [id number] Right eye Right eye Disease Active Overview: Univers affected affected 9-04 Formattin ity of by by 00:00: g of this [place] proliferat proliferat 00 note Me dical montse montse might be Branch diabetic diabetic different retinopath retinopath from the y with y with original. traction traction Added retinal retinal automatic detachment detachment ally from not not request involving involving for macula, macula, surgery associated associated [id number] with type with type 1 diabetes 1 diabetes mellitus mellitus Pain Pain Disease Active Univers management management 01-18 it y of 00:00: [place] 00 Medical Branch Blind Blind Disease Active Overview: Univer s painful painful 12-16 Formattin ity o f eye eye 00:00: g of this [place] 00 note Medical might be Branch different from the original. Eviscerat ion OS on 8 - Dr. 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 Added automatic ally from request for surgery [id number] ESRD (end ESRD (end Disease Active Overview: Univers stage stage 6-12 Formattin ity of renal renal 00:00: g of this [place] disease) disease) 00 note Medica l on on might be Branch dialysis dialysis different from the original. Added automatic ally from request for surgery [id number] Diabetes Diabetes Disease Active Metho di mellitus [...] Added automatic ally from request for surgery [id number] Neovascula Neovascula Disease Active U nivers r [...] Formattin ity of 00:00: g of this [place] [address] note Medical might be Branch different from the original. Added automatic ally from request for surgery [id number] Pseudotumo Pseudotumo Disease Active U nivers r cerebri r cerebri 9-25 ity of 00:00: [place] [address] Medical Branch Liver Liver Disease Active [facility] [...] Pati kes athy athy 00:00: Medical 00 [place] Ulcer of Ulcer of Disease [facility] left foot left foot 00:00: Medi [place] 00 Center Peripheral Peripheral Disease Active [facility] neuropathy neuropathy 7-16 Pati kes 00:00: Medical 00 [place] Hyperglyce Hyperglyce Disease Active [facility] 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 7-16 Pati kes type 2 type 2 00:00: Medical diabetes diabetes 00 Center mellitus mellitus Gastropare Gastropare Disease Active [facility] sis due to sis due to 7-16 Pati kes DM DM 00:00: Medical 00 [place] Cyclic Cyclic Disease Active [facility] vomiting vomiting 7[facility] syndrome syndrome 00:00: Medica l 00 Center Anxiety Anxiety Disease [facility] Bipolar Bipolar Disease Active [facility] disorder disorder [facility] 00:[facility]: Medical 00 [place] Hypertensi Hypertensi Disease Active [facility] ve ve 7[facility]16 [facility] emergency emergency 00:00: Medi [place] 00 [place] ACUTE RESP ACUTE Diagnosis Active 2016-09-09 Memoria FAILURE RESP 2- 09:11:00 l FAILURE 00:00: Vin Active 00 07/23/2016 [facility] CONGESTION Diagnosis Active 2016-07-24 Memoria AMD CONGESTION 07-23 01:49:00 l DIARRHEA AMD 00:00: Vin DIARRHEA 00 Active 07/23/2016 [facility] Congestive Congestive Disease Active 2015-06 U T heart heart 08-11 Health failure failure 00:00: (CHF) (CHF) 00 SOB/SWELLI SOB/SWELL Diagnosis Active 2015-062016-06-10 Memoria NG ING Active 08-11 15:48:00 l 06/10/2016 00:00: Jake n [address] CHF/RENAL Diagnosis Active 2015-062016-06-24 Memoria DISEASE CHF/RENAL 08-11 15:35:00 l DISEASE 00:00: [place] Active 00 06/10/2016 [facility] Obesity Obesity Disease Active 2015-06 Univers (BMI (BMI 0-12 ity of 30-39.9) 30-39.9) 00:00: [place] [address] Medical Branch Hyperosmol Hyperosmol Disease Active 2015-06 U nivers ar ar 0-12 ity of non-ketoti non-ketoti 00:00: [place] state in c state in 00 Me dical patient patient Branch with 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 Hyperglyce Hyperglyce Disease Active 2015-06 U nivers maryam maryam 0-11 ity of 00:00: [place] [address] Medical Branch Diabetic Diabetic Disease Active Unive rs ulcer of ulcer of 5-07 ity of both feet both [place] 00:[place] associated associated 00 Me dical with type with type Bran ch 2 diabetes 2 diabetes mellitus mellitus SANJUANA (acute SANJUANA (acute Disease Active U nivers kidney kidney 5-07 ity of injury) injury) 00:00: [place] Medical Branch Depression Depression Disease Active U nivers 5-07 ity of 00:00: [place] [address] Medical Branch Bipolar 1 Bipolar 1 Disease Active Uni vers disorder disorder 5-07 ity of 00:: [place] [address] Medical Branch Suicidal Suicidal Disease Active Unive rs ideation ideation 5-05 ity of 00:00: [place] [address] Medical Branch Diabetes Diabetes Disease Active Unive [...] 00:00: [place] cancer in cancer in 00 [facility] tawnya female female Branch Family [...] SEIZURES 00:00: Jake gonzalez Active 00 06/26/2013 [facility] ABD PAIN ABD PAIN Diagnosis Active 2012-062013-04-19 Memoria Active 0 21:51:00 l 04/14/2013 19:00: Jake gonzalez [address] [place] GASTROPERI Diagnosis Active 2012-09-13 Memoria SIS GASTROPERI 08-02 15:17:00 l SIS Active 00:00: Jake gonzalez 08/02/2012 00 [facility] ABDOMINAL ABDOMINAL Diagnosis Active 2012-03-14 Memoria PAIN PAIN 03-14 16:56:00 l Active 14:00: Vin 03/14/2012 00 [facility] NAUSEA, NAUSEA, Diagnosis Active 2012-03-14 Memoria VOMITING VOMITING 03-14 13:25:00 l Active 08:00: Vin 03/14/2012 00 [facility] N/V N/V Diagnosis Active 2011-12-08 Mem oria INABILITY INABILITY 11-27 11:14:00 l TO TO 00:00: [place] TOLERATE TOLERATE 00 PO PO Active 11/28/2011 [facility] VOMITTING Diagnosis Active 2011-11-28 Memoria VOMITTING 11-27 16:28:00 l Active 00:00: Vin 11/28/2011 00 [facility] VOMITTING, VOMITTING Diagnosis Active 2011-09-18 Memoria HIGH BLOOD , HIGH 09-17 09:45:00 l SUGAR BLOOD 00:00: Vin SUGAR 00 Active 09/18/2011 [facility] Methicilli Methicill Problem Active 2021-01-31 Memoria n in 08-31 22:29:25 l resistant resistant 00:00: Herm naeem Staphyloco Staphyloco 00 ccus ccus aureus aureus (organism) (organism) Active 09/01/2011 Problem 01/31/2021 09/01/11 - Elbow woundProbl em added by Discern Expert. [facility] MRSA MRSA Problem Active 2012-03-16 Memor ia Active 08-31 09:11:30 l 09/01/2011 00:00: Jake n Problem 00 03/16/2012 - Elbow [id number] emily added by Discern Expert. [facility] VOMITING, VOMITING, Diagnosis [facility] 08-30 03:19:00 l SUGAR SUGAR 00:00: [place] READINGS READINGS 00 HIGH HIGH Active 08/31/2011 [facility] ELBOW ELBOW Diagnosis Active 2011-09-10 Me moria ABSCESS/HY ABSCESS/HY 08-30 16:26:00 l PERGLYCEMI PERGLYCEMI 00:00: He rmann A A Active 00 08/31/2011 [facility] Hypokalemi Hypokalem Problem Active 2012-03-16 Memoria a ia Active 08-22 09:11:30 l 08/23/2011 00:00: Jake n Problem 00 03/16/2012 [facility] DKA DKA Diagnosis Active 2011-08-24 Mem oria Active 11:27:00 l 08/19/2011 00:00: Jake n [address] VOMITING VOMITING Diagnosis Active 2011-08-19 Memoria Active 16:21:00 l 08/19/2011 00:00: Jake gonzalez [address] Final: Final: Problem 2016-08-02 Mendoza janice Acute Acute 02:46:22 l respirator respirator He rmann y failure, y failure, unspecifie unspecifie d whether d whether with with hypoxia or hypoxia or hypercapni hypercapni a a 08/02/2016 [facility] Hypoglycem Hypoglyce Problem Inactiv 2012-03-16 Memoria ia maryam e 09:11:30 l Inactive Vin Problem 03/16/2012 [facility] Hypoglycem Hypoglyce Problem Inactiv 2013-04-22 Memoria ia maryam e 04:46:33 l (disorder) (disorder) He rmann Inactive Problem 04/22/2013 [facility] Gastropare Gastropar Problem Resolve 2021-01-31 Memoria sis esis d 22:29:25 l (disorder) (disorder) He rmann Resolved Problem 01/31/2021 [facility] Hypertensi Hypertens Problem Resolve 2021-01-31 Memoria ve montse d 22:29:25 l disorder, disorder, Herm naeem systemic systemic arterial arterial (disorder) (disorder) Resolved Problem 01/31/2021 [facility] Psychiatri Psychiatr Problem Resolve 2021-01-31 Memoria c ic d 22:29:25 l behavioral behavioral He rmann disability disability (finding) (finding) Resolved Problem 01/31/2021 [facility] Seizure Seizure Problem Resolve 2021-01-31 M emoria (finding) (finding) d 22:29:25 l Resolved Vin Problem 01/31/2021 [facility] Hypertensi Problem Active 2012-03-16 M emoria on Hypertensi 09:11:30 l on Active [place] Problem 03/16/2012 [facility] Hypomagnes Hypomagne Problem Active 2013-04-22 Memoria emia semia 04:46:33 l Active [place] Problem 04/22/2013 [facility] Nausea and Nausea Problem Active 2012-03-16 Memoria vomiting and 09:11:30 l vomiting [place] Active Problem 03/16/2012 [facility] ENCNTR FOR ENCNTR Diagnosis Active 2020-12-24 Memoria GENERAL FOR 10:39:00 l ADULT GENERAL Vin MEDICAL ADULT EXAM W/ MEDICAL EXAM W/ Active [facility] DMI DMI Diagnosis Active 2011-08-24 Mem oria KETOACD KETOACD 11:27:00 l UNCONTROLD UNCONTROLD He rmann Active [facility] OTHER OTHER Diagnosis Active 2011-09-10 Mem oria GENERAL GENERAL 16:26:00 l SYMPTOMS SYMPTOMS Jake n Active [facility] HEART HEART Diagnosis Active 2016-06-24 Mem oria FAILURE, FAILURE, 15:35:00 l UNSPECIFIE UNSPECIFIE He rmann D D Active [facility] ACUTE ACUTE Diagnosis Active 2016-09-09 Me moria RESPIRATOR RESPIRATOR 09:11:00 l Y FAILURE, Y FAILURE, He rmann UNSP W UNSP W HYPOXI HYPOXI Active [facility] Nausea and Nausea Problem Resolve 2021-01-31 2021-01-31 Memoria vomiting and d - 22:29:25 22:29:25 l (disorder) vomiting 00:00: Herm naeem (disorder) 00 Resolved 11/29/2011 Problem 01/31/2021 [facility] Hypokalemi Hypokalem Problem Resolve 2021-01-31 2021-01-31 Memoria a ia d 08-22 22:29:25 22:29:25 l (disorder) (disorder) 00:00: He rmann Resolved 00 08/23/2011 Problem 01/31/2021 [facility] Disorder Disorder Problem Resolve 2021-01-31 2021-01-31 Memoria of of d 08-22 22:29:25 22:29:25 l magnesium magnesium 00:00: Herm naeem metabolism metabolism 00 (disorder) (disorder) Resolved 08/23/2011 Problem 01/31/2021 [facility] Hyperglyce Hyperglyc Problem Resolve 2021-01-31 2021-01-31 Memoria maryam emia d 08-19 22:29:25 22:29:25 l (disorder) (disorder) 00:00: He rmann Resolved 00 08/20/2011 Problem 01/31/2021 [facility] Ketoacidos Ketoacido Problem Resolve 2021-01-31 2021-01-31 Memoria is in sis in d 22:29:25 22:29:25 l diabetes diabetes 00:00: Jake gonzalez mellitus mellitus 00 (disorder) (disorder) Resolved 08/19/2011 Problem 01/31/2021 [facility] DKA DKA Problem Resolve 2013-04-22 2013-04-22 Memoria (diabetic (diabetic d 04:46:33 04:46:33 l ketoacidos ketoacidos 00:00: Tyrel thompson) es) 00 Resolved 08/19/2011 Problem 04/22/2013 [facility] History of Past Illness Condition Condition Condition Status Onset Resolution Last Treating Co mments Source Name Details Category Date Date Treatment Clinician Date Discharge Discharge Problem 2014-06-28 2014-06-28 Memoria Diagnosis: Diagnosis: 06-26 16:34:37 16:34:37 l Gastropare Gastropare 06:00: Tyrel canales sis sis 00 06/26/2014 06/28/2014 [facility] Hyperglyce Hyperglyc Problem Inactiv 2012-03-16 2012-03-16 Memoria maryam emia e 08-19 09:11:30 09:11:30 l Inactive 00:00: Vin 08/20/2011 00 Problem 03/16/2012 [facility] Allergies, Adverse Reactions, Alerts Allergy [...] Active Other [facility] SIN 01-03 00:00: 00 Penicill Drug Active [facility] Allergy Breath [facility]03 [facility] Zolpidem Drug Active Other (See confusion C [...] SL EH ANTOIN 01-03 MONOHYD/ 00:00: M-CRYST Guaifene Propensi Active Other - See numbness Univers sin ty to comments 01-03 ity of adverse 00:00: [place] reaction 00 Medical s Branch GUAIFENE DRUG Active Other-Cmnt Univ ers SIN INGREDI 01-03 ity of 00:00: [place] 00 Medical Branch Ketorola Propensi Active Swelling THROAT Meth frantz c ty to [address] Trometha adverse 00:00: Hospita mine reaction 00 l s to drug Ketorola Allergy Active Swelling throatthr UT c to 6 oatthroat Health Trometha substanc 00:00: mine e 00 KETOROLA DRUG Active High Swelling Univer s C INGREDI 6-25 ity of TROMETHA 00:00: [place] MINE 00 Medical Branch Fluphena Propensi Active Other (See Other Me thodi zine ty to Comments) 4-29 reaction( st adverse 00:00: s): ARM Hospita reaction 00 NUMBNESS l s to drug Phenylep Propensi Active Hives Other Method i hrine ty to 4- reaction( st adverse 00:00: s): Hives Hospit a reaction 00 l s to drug Phenylep Allergy Active Other UT hrine to 4- reaction( Health substanc 00:00: s): Hives e 00 Fluphena Allergy Active Other UT zine to 4 reaction( Health substanc 00:00: s): ARM e 00 NUMBNESS Lisinopr Propensi Active Other (See 2015-06 Tongue [...] ers TARTRATE INGREDI 06-23 ity of 00:00: 00 Medical Branch Codeine Propensi Active Other [...] (See Comments) , Other - See commentsn kim Prolex Propensi Active Other (See Meth frantz [...] Vin morphine morphine Active Memori a l [place] lisinopr lisinopr Active Memori a il il l Vin Adhesive Adhesive Active Memori a Tape Tape l [place] Ambien Ambien Active Memoria l Vin Prolex Prolex Active Memoria DM DM l Vin penicill Drug Active [facility] lisinopr Drug Active [facility] Ambien Drug Active [facility] Prolixin Drug Active [facility] penicill Drug Active [facility] lisinopr Drug Active [facility] Ambien Drug Active [facility] Prolixin Drug Active [facility] Tape Other Active [facility] penicill Drug Active [facility] lisinopr Drug Active [facility] Ambien Drug Active [facility] Prolixin Drug Active [facility] codeine Drug Active [facility] penicill Drug Active [facility] lisinopr Drug Active [facility] Ambien Drug Active [facility] Prolixin Drug Active [facility] codeine Drug Active [facility] penicill Drug Active [facility] lisinopr Drug Active [facility] Ambien Drug Active [facility] Prolixin Drug Active [facility] penicill Drug Active [facility] lisinopr Drug Active [facility] Ambien Drug Active [facility] Prolixin Drug Active [facility] penicill Drug Active [facility] lisinopr Drug Active [facility] Ambien Drug Active [facility] Prolixin Drug Active [facility] Social History Social Habit Start Date Stop Date Quantity Comments Source History of tobacco Cigarette Smoker [facility] use Hospital Exposure to Yes [facility] SARS-CoV-2 (event) Hospit al Alcohol intake 2021-06-18 2021-06-18 Ex-drinker [facility] 00:00:00 00:00:00 (finding) Hospital Tobacco use and 2021-05-14 2021-05-14 Smokeless tobacco Me thodist exposure 00:00:00 00:00:00 non-user Hospital Cigarettes smoked 2021-05-14 2021-05-14 [facility] current (pack per 00:00:00 00:00:00 Hospita l day) - Reported Cigarette 2021-05-14 2021-05-14 [facility] pack-years 00:00:00 00:00:00 Hospital Social History 2020-12-24 2020-12-24 [facility] 15:49:37 15:49:37 Tobacco Comment 2017-11-12 2017-11-12 5 cigarettes per Met hodist 00:00:00 00:00:00 day Hospital Sex Ass[birth year] At [birth year] [facility] 00:00:00 00:00:00 Hospital Smoking Status Start Date Stop Date Source Smokes tobacco daily 2021-05-14 00:00:00 [facility] Former smoker 2020-06-27 00:00:00 2020-06-27 00:00:00 [facility] Medications Ordered Filled Start Stop Current Ordering Indication Dosage Frequency Signature Comments Components Source Medication Medication Date Date Medication? Clinician (SIG) Name Name calcium Yes 1334mg [id number] Take 1,334 Methodi acetate,domingo 1-18 [id number] mg by s t sphat bind, 13:02: 3D mouth 3 Hos whit (Phoslyra) 39 (three) l 667 mg (169 times a mg day. calcium)/5 mL solution cyproheptad Yes 4mg Q.[id number] Take 4 mg Methodi ine 1-18 [id number] by mouth [address] (PERIACTIN) 13:02: 3D (three) Hos whit 4 mg tablet 39 times a l day as needed for allergies. buPROPion 2022-0 Yes 300mg QD Take 300 Met hodi XL 1-[address] (WELLBUTRIN 13:02: mouth Hospi ta XL) 300 MG 39 daily. l 24 hr tablet ascorbic 2022-0 Yes 500mg Q.[id number] Take 500 Methodi acid, 1-[id number] vitamin C, 13:02: 3D [...] jo-ann 39 l calcium 2021-0 Yes 667mg Q.[id number] Take 667 Methodi acetate 1-[id number] (PHOSLO) 13:02: 3D mouth [...] 39 nightly. l calcium 2021-0 Yes 1334mg Q.[id number] Take 1,334 Methodi acetate,domingo 1-18 [id number] mg by s t sphat bind, 13:02: 3D mouth 3 Hos whit (Phoslyra) 39 (three) l 667 mg (169 times a mg day. calcium)/5 mL solution cyproheptad 2021-0 Yes 4mg Q.[id number] Take 4 mg Methodi ine 1-18 [id number] by mouth [address] (PERIACTIN) 13:02: 3D (three) Hos whit 4 mg tablet 39 times a l day as needed for allergies. buPROPion 2021-0 Yes 300mg QD Take 300 Met hodi XL 1-[address] (WELLBUTRIN 13:02: mouth Hospi ta XL) 300 MG 39 daily. l 24 hr tablet ascorbic 2021-0 Yes 500mg Q.[id number] Take 500 Methodi acid, 1-[id number] vitamin C, 13:02: 3D [...] jo-ann 39 l calcium 2021-0 Yes 667mg Q.[id number] Take 667 Methodi acetate 1-[id number] (PHOSLO) 13:02: 3D mouth [...] 39 nightly. l calcium 0 Yes 1334mg Q.[id number] Take 1,334 Methodi acetate,domingo 1-18 [id number] mg by s t sphat bind, 13:02: 3D mouth 3 Hos whit (Phoslyra) 39 (three) l 667 mg (169 times a mg day. calcium)/5 mL solution cyproheptad 0 Yes 4mg Q.[id number] Take 4 mg Methodi ine 1-18 [id number] mouth [address] (PERIACTIN) 13:02: 3D (three) Hos whit 4 mg tablet 39 times a l day as needed for allergies. buPROPion 0 Yes 300mg QD Take 300 Met hodi XL 1-[address] (WELLBUTRIN 13:02: mouth Hospi ta XL) 300 MG 39 daily. l 24 hr tablet ascorbic 2021-0 Yes 500mg Q.[id number] Take 500 Methodi acid, 1-[id number] vitamin C, 13:02: 3D [...] jo-ann 39 l calcium 2021-0 Yes 667mg Q.[id number] Take 667 Methodi acetate 1-[id number] (PHOSLO) 13:02: 3D mouth [...] 39 times a l day. 2 traZODone 202-0 Yes 150mg QD Take 150 Met hodi (DESYREL) 1-[address] 150 MG 13:02: mouth Hospita tablet 39 nightly. l calcium 2-0 Yes 1334mg Q.[id number] Take 1,334 Methodi acetate,domingo 1-18 [id number] mg by s t sphat bind, 13:02: 3D mouth 3 Hos whit (Phoslyra) 39 (three) l 667 mg (169 times a mg day. calcium)/5 mL solution cyproheptad 2021-0 Yes 4mg Q.[id number] Take 4 mg Methodi ine 1-18 [id number] [address] mouth [address] (PERIACTIN) 13:02: 3D (three) Hos whit 4 mg tablet 39 times a l day as needed for allergies. buPROPion 2021-0 Yes 300mg QD Take 300 Met hodi XL 1-[address] (WELLBUTRIN 13:02: mouth Hospi ta XL) 300 MG 39 daily. l 24 hr tablet ascorbic 2021-0 Yes 500mg Q.[id number] Take 500 Methodi acid, 1-[id number] vitamin C, 13:02: 3D [...] jo-ann 39 l calcium 2022-0 Yes 667mg Q.[id number] Take 667 [facility] acetate 1-[id number] (PHOSLO) 13:02: 3D mouth [...] 39 nightly. l calcium 2021-0 Yes 1334mg Q.75490710 Take 1,334 [facility] acetate,domingo 1-18 [id number] mg by s t sphat bind, 13:02: 3D mouth 3 Hos whit (Phoslyra) 39 (three) l 667 mg (169 times a mg day. calcium)/5 mL solution cyproheptad 2021-0 Yes 4mg Q.27244822 Take 4 mg [facility] ine 1-18 [id number] [address] mouth [address] (PERIACTIN) 13:02: 3D (three) Hos whit 4 mg tablet 39 times a l day as needed for allergies. buPROPion 2021-0 Yes 300mg QD Take 300 Met hodi XL 1-[address] (WELLBUTRIN 13:02: mouth Hospi ta XL) 300 MG 39 daily. l 24 hr tablet ascorbic 2021-0 Yes 500mg Q.26255401 Take 500 [facility] acid, 1-[id number] vitamin C, 13:02: 3D [...] jo-ann 39 l calcium 2021-0 Yes 667mg Q.92587065 Take 667 [facility] acetate 1-[id number] (PHOSLO) 13:02: 3D mouth [...] Hospita 39 times a l day. folic 2-0 Yes 800mg Take 800 [facility] acid/vit B [...] 39 nightly. l calcium 2021-0 Yes 1334mg Q.[id number] Take 1,334 [facility] acetate,domingo 1-18 2514050752 mg by s t sphat bind, 13:02: 3D mouth 3 Hos whit (Phoslyra) 39 (three) l 667 mg (169 times a mg day. calcium)/5 mL solution cyproheptad 2021-0 Yes 4mg Q.54921092 Take 4 mg [facility] ine 1-18 [id number] by mouth [address] (PERIACTIN) 13:02: 3D (three) Hos whit 4 mg tablet 39 times a l day as needed for allergies. buPROPion 2021-0 Yes 300mg QD Take 300 Met hodi XL 1-[address] (WELLBUTRIN 13:02: mouth Hospi ta XL) 300 MG 39 daily. l 24 hr tablet ascorbic 2021-0 Yes 500mg Q.31418221 Take 500 [facility] acid, 1-[id number] vitamin C, 13:02: 3D [...] jo-ann 39 l calcium 2021-0 Yes 667mg Q.64474104 Take 667 [facility] acetate 1-[id number] (PHOSLO) 13:02: 3D mouth [...] 39 nightly. l calcium 2022-0 Yes 1334mg Q.03904984 Take 1,334 [facility] acetate,domingo 1-18 [id number] mg by s t sphat bind, 13:02: 3D mouth 3 Hos whit (Phoslyra) 39 (three) l 667 mg (169 times a mg day. calcium)/5 mL solution cyproheptad 2021-0 Yes 4mg Q.[id number] Take 4 mg [facility] ine 1-18 [id number] [address] mouth [address] (PERIACTIN) 13:02: 3D (three) Hos whit 4 mg tablet 39 times a l day as needed for allergies. buPROPion 2021-0 Yes 300mg QD Take 300 Met hodi XL 1-[address] (WELLBUTRIN 13:02: mouth Hospi ta XL) 300 MG 39 daily. l 24 hr tablet ascorbic 2021-0 Yes 500mg Q.39372598 Take 500 [facility] acid, 1-[id number] vitamin C, 13:02: 3D [...] jo-ann 39 l calcium 2021-0 Yes 667mg Q.[id number] Take 667 [facility] acetate 1-[id number] (PHOSLO) 13:02: 3D mouth [...] 39 nightly. l calcium 2021-0 Yes 1334mg Q.99770254 Take 1,334 [facility] acetate,domingo 1-18 [id number] mg by s t sphat bind, 13:02: 3D mouth 3 Hos whit (Phoslyra) 39 (three) l 667 mg (169 times a mg day. calcium)/5 mL solution cyproheptad 2021-0 Yes 4mg Q.82217563 Take 4 mg [facility] ine 1-18 [id number] [address] mouth [address] (PERIACTIN) 13:02: 3D (three) Hos whit 4 mg tablet 39 times a l day as needed for allergies. buPROPion 2021-0 Yes 300mg QD Take 300 Met hodi XL 1-[address] (WELLBUTRIN 13:02: mouth Hospi ta XL) 300 MG 39 daily. l 24 hr tablet ascorbic 2021-0 Yes 500mg Q.80726513 Take 500 [facility] acid, 1-[id number] vitamin C, 13:02: 3D [...] jo-ann 39 l calcium 2021-0 Yes 667mg Q.68882536 Take 667 [facility] acetate 1-[id number] (PHOSLO) 13:02: 3D mouth [...] 39 nightly. l calcium 2021-0 Yes 1334mg Q.53377581 Take 1,334 [facility] acetate,domingo 1-18 [id number] mg by s t sphat bind, 13:02: 3D mouth 3 Hos whit (Phoslyra) 39 (three) l 667 mg (169 times a mg day. calcium)/5 mL solution cyproheptad 2021-0 Yes 4mg Q.76563890 Take 4 mg [facility] ine 1-18 [id number] [address] mouth [address] (PERIACTIN) 13:02: 3D (three) Hos whit 4 mg tablet 39 times a l day as needed for allergies. buPROPion 2021-0 Yes 300mg QD Take 300 Met hodi XL 1-[address] (WELLBUTRIN 13:02: mouth Hospi ta XL) 300 MG 39 daily. l 24 hr tablet ascorbic 2021-0 Yes 500mg Q.81312799 Take 500 [facility] acid, 1-[id number] vitamin C, 13:02: 3D [...] jo-ann 39 l calcium 2021-0 Yes 667mg Q.30926706 Take 667 [facility] acetate 1-[id number] (PHOSLO) 13:02: 3D mouth [...] 39 nightly. l calcium 2021-0 Yes 1334mg Q.[id number] Take 1,334 [facility] acetate,domingo 1-18 [id number] mg by s t sphat bind, 13:02: 3D mouth 3 Hos whit (Phoslyra) 39 (three) l 667 mg (169 times a mg day. calcium)/5 mL solution cyproheptad 2021-0 Yes 4mg Q.[id number] Take 4 mg [facility] ine 1-18 [id number] by mouth [address] (PERIACTIN) 13:02: 3D (three) Hos whit 4 mg tablet 39 times a l day as needed for allergies. buPROPion 2021-0 Yes 300mg QD Take 300 Met hodi XL 1-[address] (WELLBUTRIN 13:02: mouth Hospi ta XL) 300 MG 39 daily. l 24 hr tablet ascorbic 2021-0 Yes 500mg Q.65108093 Take 500 [facility] acid, 1-[id number] vitamin C, 13:02: 3D [...] jo-ann 39 l calcium 2-0 Yes 667mg Q.31025829 Take 667 [facility] acetate 1-[id number] (PHOSLO) 13:02: 3D mouth [...] 39 nightly. l calcium 2021-0 Yes 1334mg Q.91603178 Take 1,334 [facility] acetate,domingo 1-18 [id number] mg by s t sphat bind, 13:02: 3D mouth 3 Hos whit (Phoslyra) 39 (three) l 667 mg (169 times a mg day. calcium)/5 mL solution cyproheptad 2021-0 Yes 4mg Q.43740631 Take 4 mg [facility] ine 1-18 [id number] [address] mouth [address] (PERIACTIN) 13:02: 3D (three) Hos whit 4 mg tablet 39 times a l day as needed for allergies. buPROPion 2021-0 Yes 300mg QD Take 300 Met hodi XL 1-[address] (WELLBUTRIN 13:02: mouth Hospi ta XL) 300 MG 39 daily. l 24 hr tablet ascorbic 2021-0 Yes 500mg Q.71455947 Take 500 [facility] acid, 1-[id number] vitamin C, 13:02: 3D [...] jo-ann 39 l calcium 2-0 Yes 667mg Q.[id number] Take 667 [facility] acetate 1-[id number] (PHOSLO) 13:02: 3D mouth [...] mouth Hospita tablet 39 nightly. l glipiZIDE 2021-0 Yes 5mg Take 5 mg Met hodi (GLUCOTROL) 1-[address] 5 MG tablet 13:02: daily. Hosp jo-ann 39 l calcium 2021-0 Yes 667mg Q.93341805 Take 667 [facility] acetate 1-[id number] (PHOSLO) 13:02: 3D mouth [...] 39 nightly. l calcium 0 Yes 1334mg Q.31637852 Take 1,334 [facility] acetate,domingo -18 [id number] mg by s t sphat bind, 13:02: 3D mouth 3 Hos whit (Phoslyra) 39 (three) l 667 mg (169 times a mg day. calcium)/5 mL solution cyproheptad 0 Yes 4mg Q.23619535 Take 4 mg [facility] ine -18 [id number] [address] mouth [address] (PERIACTIN) 13:02: 3D (three) Hos whit 4 mg tablet 39 times a l day as needed for allergies. buPROPion 0 Yes 300mg QD Take 300 Met hodi XL 1-[address] (WELLBUTRIN 13:02: mouth Hospi ta XL) 300 MG 39 daily. l 24 hr tablet ascorbic 2021-0 Yes 500mg Q.[id number] Take 500 [facility] acid, 1-[address] vitamin C, 13:02: 3D [...] mg at night vancomycin 2020-06- No 750mg Q.76406428 Infuse 750 [facility] 750 mg in 07-08 [id number] mg [address] a [address] sodium 00:00: 05:59 3W venous Hospita chloride 00 :00 catheter 3 l 0.9% 250 mL (three) IVPB times a week for 19 days. Administer 3 times weekly in dialysis vancomycin 2020-06- No 750mg Q.54251789 Infuse 750 [facility] 750 mg in 07-08 [id number] mg [address] a [address] sodium 00:00: 05:59 3W venous Hospita chloride 00 :00 catheter 3 l 0.9% 250 mL (three) IVPB times a week for 19 days. Administer 3 times weekly in dialysis vancomycin 2020-06- No 750mg Q.51442965 Infuse 750 [facility] 750 mg in 07-08 [id number] mg into a [address] sodium 00:00: 05:59 3W venous Hospita chloride 00 :00 catheter 3 l 0.9% 250 mL (three) IVPB times a week for 19 days. Administer 3 times weekly in dialysis vancomycin 2020-06- No 750mg Q.50377090 Infuse 750 [facility] 750 mg in 07-08 [id number] mg into a [address] sodium 00:00: 05:59 3W venous [facility]ospita chloride 00 :00 catheter 3 l 0.9% 250 mL (three) IVPB times a week for 19 days. Administer 3 times weekly in dialysis vancomycin 2020-06- No 750mg Q.57027017 Infuse 750 [facility] 750 mg in 07-08 [id number] mg [address] a [address] sodium 00:00: 05:59 3W venous [facility]ospita chloride 00 :00 catheter 3 l 0.9% 250 mL (three) IVPB times a week for 19 days. Administer 3 times weekly in dialysis vancomycin 2020-06- No 750mg Q.98342194 Infuse 750 [facility] 750 mg in 07-08 [id number] mg into a [address] sodium 00:00: 05:59 3W venous Hospita chloride 00 :00 catheter 3 l 0.9% 250 mL (three) IVPB times a week for 19 days. Administer 3 times weekly in dialysis vancomycin 2020-06- No 750mg Q.45323865 Infuse 750 [facility] 750 mg in 07-08 [id number] mg into a [address] sodium 00:00: 05:59 3W venous Hospita chloride 00 :00 catheter 3 l 0.9% 250 mL (three) IVPB times a week for 19 days. Administer 3 times weekly in dialysis vancomycin 2020-06- No 750mg Q.80869423 Infuse 750 [facility] 750 mg in 07-08 [id number] mg into a [address] sodium 00:00: 05:59 3W venous [facility]ospita chloride 00 :00 catheter 3 l 0.9% 250 mL (three) IVPB times a week for 19 days. Administer 3 times weekly in dialysis vancomycin 2020-06- No 750mg Q.36101577 Infuse 750 [facility] 750 mg in 07-08 [id number] mg into a [address] sodium 00:00: 05:59 3W venous Hospita chloride 00 :00 catheter 3 l 0.9% 250 mL (three) IVPB times a week for 19 days. Administer 3 times weekly in dialysis vancomycin 2020-06- No 750mg Q.04176651 Infuse 750 [facility] 750 mg in 07-08 [id number] mg into a [address] sodium 00:00: 05:59 3W venous Hospita chloride 00 :00 catheter 3 l 0.9% 250 mL (three) IVPB times a week for 19 days. Administer 3 times weekly in dialysis vancomycin 2020-06- No 750mg Q.85261994 Infuse 750 [facility] 750 mg in 07-08 [id number] mg into a [address] sodium 00:00: 05:59 3W venous Hospita chloride 00 :00 catheter 3 l 0.9% 250 mL (three) IVPB times a week for 19 days. Administer 3 times weekly in dialysis vancomycin 2020-06- No 750mg Q.66271751 Infuse 750 [facility] 750 mg in 07-08 [id number] mg into a [address] sodium 00:00: 05:59 3W venous Hospita chloride 00 :00 catheter 3 l 0.9% 250 mL (three) IVPB times a week for 19 days. Administer 3 times weekly in dialysis HYDROcodone 2020-06 1{tbl} Q6H Take 1 [facility] -acetaminop 06-[address] [facility] ([facility]) 00:00: 05:59 mouth Hosp jo-ann 5-325 mg 00 :00 every 6 l per tablet (six) hours as needed for severe pain for up to 5 days .acute pain. Max Daily Amount: 4 tablets HYDROcodone 2020-06 1{tbl} Q6H Take 1 [facility] -acetaminop 06-[address] [facility] ([facility]) 00:00: 05:59 mouth Hosp jo-ann 5-325 mg 00 :00 every 6 l per tablet (six) hours as needed for severe pain for up to 5 days .acute pain. Max Daily Amount: 4 tablets HYDROcodone 2020-06 1{tbl} Q6H Take 1 [facility] -acetaminop 2-29 -[address] hen ([facility]) 00:00: 05:59 mouth Hosp jo-ann 5-325 mg 00 :00 every 6 l per tablet (six) hours as needed for severe pain for up to 5 days .acute pain. Max Daily Amount: 4 tablets HYDROcodone 2020-0628 1{tbl} Q6H Take 1 [facility] -acetaminop 2-29 -[address] [facility] ([facility]) 00:00: 05:59 mouth Hosp jo-ann 5-325 mg 00 :00 every 6 l per tablet (six) hours as needed for severe pain for up to 5 days .acute pain. Max Daily Amount: 4 tablets HYDROcodone 2020-06 1{tbl} Q6H Take 1 [facility] -acetaminop 2-29 -[address] [facility] (MMITNC) 00:00: 05:59 mouth Hosp jo-ann 5-325 mg 00 :00 every 6 l per tablet (six) hours as needed for severe pain for up to 5 days .acute pain. Max Daily Amount: 4 tablets HYDROcodone 2020-06 1{tbl} Q6H Take 1 [facility] -acetaminop 2-29 -[address] [facility] ([facility]) 00:00: 05:59 mouth Hosp jo-ann 5-325 mg 00 :00 every 6 l per tablet (six) hours as needed for severe pain for up to 5 days .acute pain. Max Daily Amount: 4 tablets HYDROcodone 2020-06 1{tbl} Q6H Take 1 [facility] -acetaminop 2-29 -[address] [facility] ([facility]) 00:00: 05:59 mouth Hosp jo-ann 5-325 mg 00 :00 every 6 l per tablet (six) hours as needed for severe pain for up to 5 days .acute pain. Max Daily Amount: 4 tablets HYDROcodone 2020-06 1{tbl} Q6H Take 1 [facility] -acetaminop 2-29 -[address] hen ([facility]) 00:00: 05:59 mouth Hosp jo-ann 5-325 mg 00 :00 every 6 l per tablet (six) hours as needed for severe pain for up to 5 days .acute pain. Max Daily Amount: 4 tablets HYDROcodone 2020-06 No 1{tbl} Q6H Take 1 [facility] -acetaminop 2-29 -[address] hen ([facility]) 00:00: 05:59 mouth Hosp jo-ann 5-325 mg 00 :00 every 6 l per tablet (six) hours as needed for severe pain for up to 5 days .acute pain. Max Daily Amount: 4 tablets HYDROcodone 2020-06 1{tbl} Q6H Take 1 [facility] -acetaminop 2-29 - tablet by [facility] hen ([facility]) 00:00: 05:59 mouth Hosp jo-ann 5-325 mg 00 :00 every 6 l per tablet (six) hours as needed for severe pain for up to 5 days .acute pain. Max Daily Amount: 4 tablets HYDROcodone 2020-06 No 1{tbl} Q6H Take 1 [facility] -acetaminop 2-29 - tablet by [facility] hen ([facility]) 00:00: 05:59 mouth Hosp jo-ann 5-325 mg 00 :00 every 6 l per tablet (six) hours as needed for severe pain for up to 5 days .acute pain. Max Daily Amount: 4 tablets HYDROcodone 2020-06 No [id number] 1{tbl} Q6H Take 1 [facility] -acetaminop 2-29 -[address] hen ([facility]) 00:00: 05:59 mouth Hosp jo-ann 5-325 mg [...] 50 MG 19 :00 l tablet clopidogreL 2020-2021- No 75mg QD Take 1 [...] l mouth daily for 30 days. sennosides- 2020-2021- No 1{tbl} QD Take 1 M ethodi docusate 2-05 -[address] sodium 00:00: 05:59 mouth Hospita (SENOKOT-S) 00 :00 nightly l 8.6-50 mg for 30 per tablet days. gabapentin 2020-2021- No 300mg QD Take 1 Met hodi (NEURONTIN) 2-10 19-[address] 300 mg 00:00: 05:59 (300 mg Hospita capsule 00 :00 total) by l mouth daily for 30 days. sennosides- 2020-2021- No 1{tbl} QD Take 1 M ethodi docusate 2-10 19-[address] sodium 00:00: 05:59 mouth Hospita (SENOKOT-S) 00 :00 nightly l 8.6-50 mg for 30 per tablet days. gabapentin 2020-2021- No 300mg QD Take 1 Met hodi (NEURONTIN) 2-10 19-[address] 300 mg 00:00: 05:59 (300 mg Hospita capsule 00 :00 total) by l mouth daily for 30 days. sennosides- 2020-2021- No 1{tbl} QD Take 1 M ethodi docusate 2-10 19-[address] sodium 00:00: 05:59 mouth Hospita (SENOKOT-S) 00 :00 nightly l 8.6-50 mg for 30 per tablet days. gabapentin 2020-2021- No 300mg QD Take 1 Met hodi (NEURONTIN) 2-05 -[address] 300 mg 00:00: 05:59 (300 mg Hospita capsule 00 :00 total) by l mouth daily for 30 days. sennosides- 2020-2021- No 1{tbl} QD Take 1 M ethodi [...] 2-05 12-13 tablets by s t hen ([facility]) 00:00: 05:59 mouth Hosp jo-ann 5-325 mg 00 :00 every 8 l per tablet (eight) hours as needed for severe pain for up to 7 days .acute pain. Max Daily Amount: 6 tablets HYDROcodone 2020-0628 2{tbl} Q8H Take 2 Methodi -acetaminop 2-05 12-13 tablets by s t hen ([facility]) 00:00: 05:59 mouth Hosp jo-ann 5-325 mg 00 :00 every 8 l per tablet (eight) hours as needed for severe pain for up to 7 days .acute pain. Max Daily Amount: 6 tablets HYDROcodone 2020-06 2{tbl} Q8H Take 2 Methodi -acetaminop 2-05 12-13 tablets by s t hen ([facility]) 00:00: 05:59 mouth Hosp jo-ann 5-325 mg 00 :00 every 8 l per tablet (eight) hours as needed for severe pain for up to 7 days .acute pain. Max Daily Amount: 6 tablets HYDROcodone 2020-06 2{tbl} Q8H Take 2 Methodi -acetaminop 2-05 12-13 tablets by s t hen ([facility]) 00:00: 05:59 mouth Hosp jo-ann 5-325 mg 00 :00 every 8 l per tablet (eight) hours as needed for severe pain for up to 7 days .acute pain. Max Daily Amount: 6 tablets HYDROcodone 2020-0628 2{tbl} Q8H Take 2 Methodi -acetaminop 2-05 12-13 tablets by s t hen ([facility]) 00:00: 05:59 mouth Hosp jo-ann 5-325 mg 00 :00 every 8 l per tablet (eight) hours as needed for severe pain for up to 7 days .acute pain. Max Daily Amount: 6 tablets HYDROcodone 2020-0628 2{tbl} Q8H Take 2 Methodi -acetaminop 2-05 12-13 tablets by s t hen ([facility]) 00:00: 05:59 mouth Hosp jo-ann 5-325 mg 00 :00 every 8 l per tablet (eight) hours as needed for severe pain for up to 7 days .acute pain. Max Daily Amount: 6 tablets HYDROcodone 2020-0628 2{tbl} Q8H Take 2 Methodi -acetaminop 2-05 12-13 tablets by s t hen ([facility]) 00:00: 05:59 mouth Hosp jo-ann 5-325 mg 00 :00 every 8 l per tablet (eight) hours as needed for severe pain for up to 7 days .acute pain. Max Daily Amount: 6 tablets HYDROcodone 2020-0628 2{tbl} Q8H Take 2 Methodi -acetaminop 2-05 12-13 tablets by s t hen ([facility]) 00:00: 05:59 mouth Hosp jo-ann 5-325 mg 00 :00 every 8 l per tablet (eight) hours as needed for severe pain for up to 7 days .acute pain. Max Daily Amount: 6 tablets HYDROcodone 2020-06 2{tbl} Q8H Take 2 Methodi -acetaminop 2-05 12-13 tablets by s t hen ([facility]) 00:00: 05:59 mouth Hosp jo-ann 5-325 mg 00 :00 every 8 l per tablet (eight) hours as needed for severe pain for up to 7 days .acute pain. Max Daily Amount: 6 tablets HYDROcodone 2020-06 2{tbl} Q8H Take 2 Methodi -acetaminop 2-05 12-13 tablets by s t hen ([facility]) 00:00: 05:59 mouth Hosp jo-ann 5-325 mg 00 :00 every 8 l per tablet (eight) hours as needed for severe pain for up to 7 days .acute pain. Max Daily Amount: 6 tablets HYDROcodone 2020-06 2{tbl} Q8H Take 2 Methodi -acetaminop 2-05 12-13 tablets by s t hen ([facility]) 00:00: 05:59 mouth Hosp jo-ann 5-325 mg 00 :00 every 8 l per tablet (eight) hours as needed for severe pain for up to 7 days .acute pain. Max Daily Amount: 6 tablets predniSONE 2020-06- No [id number] Take M ethodi (DELTASONE) 07-18 Prednisone s t 50 mg 00:00: 00:00 50mg 13 Hospita tablet 00 :00 hours, 7 l hours, and 1 hour prior to scheduled procedure on 05/19/2021 for contrast allergy prophylaxi s. predniSONE 2020-06- No [id number] Take M ethodi (DELTASONE) 07-18 Prednisone s t 50 mg 00:00: 00:00 50mg 13 Hospita tablet 00 :00 hours, 7 l hours, and 1 hour prior to scheduled procedure on 05/19/2021 for contrast allergy prophylaxi s. predniSONE 2020-06- No [id number] Take M ethodi (DELTASONE) 07-18 Prednisone s t 50 mg 00:00: 00:00 50mg 13 Hospita tablet 00 :00 hours, 7 l hours, and 1 hour prior to scheduled procedure on 05/19/2021 for contrast allergy prophylaxi s. predniSONE 2020-06- No [id number] Take M ethodi (DELTASONE) 07-18 12-05 Prednisone s t 50 mg 00:00: 00:00 50mg 13 Hospita tablet 00 :00 hours, 7 l hours, and 1 hour prior to scheduled procedure on 05/19/2021 for contrast allergy prophylaxi s. predniSONE 2020-06- No [id number] Take M ethodi (DELTASONE) 07-18 12-05 Prednisone s t 50 mg 00:00: 00:00 50mg 13 Hospita tablet 00 :00 hours, 7 l hours, and 1 hour prior to scheduled procedure on 05/19/2021 for contrast allergy prophylaxi s. predniSONE 2020-06- No [id number] Take M ethodi (DELTASONE) 07-18 12-05 Prednisone s t 50 mg 00:00: 00:00 50mg 13 Hospita tablet 00 :00 hours, 7 l hours, and 1 hour prior to scheduled procedure on 05/19/2021 for contrast allergy prophylaxi s. predniSONE 2020-06- No [id number] Take M ethodi (DELTASONE) 07-18 12-05 Prednisone s t 50 mg 00:00: 00:00 50mg 13 Hospita tablet 00 :00 hours, 7 l hours, and 1 hour prior to scheduled procedure on 05/19/2021 for contrast allergy prophylaxi s. predniSONE 2020-06- No [id number] Take M ethodi (DELTASONE) 07-18 12-05 Prednisone s t 50 mg 00:00: 00:00 50mg 13 Hospita tablet 00 :00 hours, 7 l hours, and 1 hour prior to scheduled procedure on 05/19/2021 for contrast allergy prophylaxi s. predniSONE 2020-06- No [id number] Take M ethodi (DELTASONE) 07-18 12-05 Prednisone s t 50 mg 00:00: 00:00 50mg 13 Hospita tablet 00 :00 hours, 7 l hours, and 1 hour prior to scheduled procedure on 05/19/2021 for contrast allergy prophylaxi s. predniSONE 2020-06- No [id number] Take M ethodi (DELTASONE) 07-18 12-05 Prednisone [...] daily. l 12 hr tablet buPROPion 2020-06 150mg Take 150 Me thodi SR 1-24 [...] by ity of Vitamin D3, 11:08: mouth. [facility] s 125 mcg Medical (5,000 Branch unit) tablet proMETHazin 2020-06 Yes 25mg Take 25 mg Univers e 25 mg 0-03 by mouth. ity of tablet 11:08: [place] [address] Medical Branch aspirin 81 2020-06 Yes 81mg Take 1 Unive rs mg chewable 0-03 tablet by ity of tablet 11:08: mouth [place] [address] daily. Medical Branch divalproex 2020-06 Yes 500mg Take 500 Un lori ER 0-01 mg by ity of (DEPAKOTE 23:08: mouth 2 [place] ER) 500 mg 36 (two) Medical 24 hr times Branch tablet daily. gabapentin 2020-06 Yes 100mg Take 100 Un lori 100 mg 0-01 mg by ity of capsule 23:08: mouth 2 [place] [address] (two) Medical times Branch daily. vitamin C 2020-06 Yes 2000mg Take 2,000 Univers with sia 0-01 mg by ity of hips 23:08: mouth 2 [place] (VITAMIN C) 36 (two) Medical 1,000 mg times Branch tablet daily. metoprolol 2020-06 Yes 50mg Take 50 mg U nivers tartrate 50 0-01 by mouth ity of mg tablet 23:08: daily. [address] Branch folic 2020-06 Yes 800mg Take 800 Univers acid/vit B 0-01 mg by ity of complex and 23:08: mouth [place] C 36 daily. Medical (DIALYVITE Branch 800 ORAL) linagliptin 2020-06 Yes Take by Uni vers (TRADJENTA) 0-01 mouth. ity of 5 mg tablet 23:08: [address] Branch spironolact 2020-06 Yes 50mg Take 50 mg Univers one 50 mg 0-01 by mouth ity of tablet 23:08: daily. [address] Branch pravastatin 2020-06 Yes 40mg Take [...] by mouth ity of tablet 23:08: daily. [place] [address] Medical Branch calcium 2020-06 Yes 667mg Take 667 Unive rs acetate 667 0-01 mg by ity of mg capsule 23:08: mouth [place] (three) Medical times Branch daily with meals. cetirizine 2020-06 Yes 1{tbl} Take 1 Uni vers HCl/pseudoe 0-01 tablet by ity of phedrine 23:08: mouth [place] (ZYRTEC-D 36 daily. Medical ORAL) Branch furosemide 2020-06 Yes 40mg Take 40 mg U nivers 40 mg 0-01 by mouth 2 ity of tablet 23:08: (two) [place] [address] times Medical daily. Branch divalproex 2020-06 Yes 500mg Take 500 Un lori ER 0-01 mg by ity of (DEPAKOTE 23:08: mouth 2 [place] ER) 500 mg (two) Medical 24 hr times Branch tablet daily. gabapentin 2020-06 Yes 100mg Take 100 Un lori 100 mg 0-01 mg by ity of capsule 23:08: mouth 2 [place] [address] (two) Medical times Branch daily. vitamin C 2020-06 Yes 2000mg Take 2,000 Univers with sia 0-01 mg by ity of hips 23:08: mouth 2 [place] (VITAMIN C) (two) Medical 1,000 mg times Branch tablet daily. metoprolol 2020-06 Yes 50mg Take 50 mg U nivers tartrate 50 0-01 by mouth ity of mg tablet 23:08: daily. [place] [address] Medical Branch folic 2020-06 Yes 800mg Take 800 Univers acid/vit B 0-01 mg by ity of complex and 23:08: mouth [place] C 36 daily. Medical (DIALYVITE Branch 800 ORAL) linagliptin 2020-06 Yes Take by Uni vers (TRADJENTA) 0-01 mouth. ity of 5 mg tablet 23:08: [place] [address] Medical Branch spironolact 2020-06 Yes 50mg Take 50 mg Univers one 50 mg 0-01 by mouth ity of tablet 23:08: daily. [place] [address] Medical Branch pravastatin 2020-06 Yes 40mg Take 40 mg Univers 40 mg 0-01 by mouth ity of tablet 23:08: daily. [place] [address] Medical Branch mv-mn/iron/ 2020-06 Yes 1{capsu Take 1 U nivers folic 0-01 le} capsule by ity of acid/herb 23:08: mouth [place] 190 36 daily. Medical (VITAMIN D3 Branch COMPLETE ORAL) SERTraline 2020-06 Yes 50mg Take 50 mg U nivers 50 mg 0-01 by mouth ity of tablet 23:08: daily. [address] Branch calcium 2020-06 Yes 667mg Take [...] = 1 mL, l 1999 19:37: IV, [place] units/mL 00 Q-M-W-F, preservativ to be e-free [...] tab, PO, l tablet 19:33: Daily, # [place] 00 14 tab, 0 Refill(s) Norvasc No [...] 01-27 not exceed l 09:29: 4 gm/day. [place] (Same as: Tylenol) tramadol No Notes: Not Mem oria hydrochlori 01-27 to exceed l de 50 MG 09:29: 400mg/day. Her braden Oral Tablet 00 (Same As: Ultram) heparin No Notes: Memoria 01-27 porcine l 02:00: heparin Magnesium No Notes: Memori a Oxide 01-23 (Same as: l 22:54: Mag-Ox Vin 00 400) Magnesium oxide 278rt=730v g elemental magnesium Dose=____m g magnesium oxide (___mg elemental magnesium) Coreg No Notes: Memoria 01-23 Give with l 02:00: food. Ivn 00 (Same As: Coreg) Buspar No Notes: Memoria 01-22 (Same As: l 22:00: BuSpar) Fentanyl No Notes: Memoria 01-22 (Same as: l 21:06: Sublimaze) [place] 00 Preservati ve free. Norvasc No Notes: Memoria 01-22 (Same as: l 16:47: Norvasc) Vin 00 Wellbutrin No Notes: Memor ia 01-22 (Same As: l 16:00: Wellbutrin ) pantoprazol No Notes: For Memoria e 01-22 IV push l 14:00: reconstitu te with 10 ml 0.9% sodium chloride and push over 2 minutes. (Same as: Protonix) Aspirin 81 No Notes: Memor ia MG Chewable 01-22 Take with l Tablet 14:00: food. [place] 00 Vitamin D3 No Notes: Memor ia [...] Same as: l 200 mL 18:26: Cardene [place] (Titrate.) 00 Concentrat IV 40 mg ion: (0.2 mg /1 ml ) Cyproheptad No 4 mg, 1 Mem oria ine 01-21 tab, l 18:00: Route: PO, [place] Drug form: TAB, TID, Dosing Weight 72, kg, Start date: 01/21/21 13:00:00 CDT, Duration: 30 day, Stop date: 02/20/21 9:00:00 CDT Albuterol No Notes: SEE Me moria 01-21 RT l 17:49: DOCUMENTAT [place] ION (Same as: Proventil) albuterol No 180 [...] being intubated (unless the nurse is a WINDOW ASSEMBLER). Same as: Diprivan midazolam No Route: IV, Me moria (ANES) 01-21 Drug form: l 17:18: SOLN, Vin 00 ONCE, Stop date: 01/21/21 12:18:00 CDT fentaNYL No Route: IV, Mem oria (ANES) 01-21 Drug form: l 17:18: INJ, ONCE, [place] Stop date: 01/21/21 12:18:00 CDT niCARdipine No [...] 1 UT [facility] 1 00 (one) time each day. rifaximin Yes 550 mg = 1 Me moria 550 MG Oral 06 tab, PO, l Tablet 18:46: TID, # 42 Jake n [XIFAXAN] 00 tab, 2 Refill(s), Pharmacy: [facility], 154.94, cm, [...] 0.257 Refill(s), MEQ/ML Oral Pharmacy: Solution) } [facility] [Suprep 808, Bowel Prep 154.94, Kit] cm, 12/24/20 10:43:00 CDT, Height, 71.818, kg, 12/24/20 10:43:00 CDT, Weight Citric Acid Yes 160 mL, Mem oria 75 MG/ML / 7-06 PO, PRE l Magnesium 18:11: OP, # 1 Nidia nn Oxide 21.9 00 ea, 0 MG/ML / Refill(s), picosulfate Pharmacy: [facility] 0.0625 Pharmacy MG/ML Oral 808, Solution 154.94, [...] Memoria 7-06 PO, Daily, l 15:54: 0 [place] 00 Refill(s) Elderberry 0 Yes 0 Memoria preparation 7-06 Refill(s) l 15:54: Vin 00 Buspar 0 Yes PO, BID, 0 Memor ia 7-06 Refill(s) l 15:53: Vin 00 Dialyvite 0 Yes 0 Memoria 5000 7-06 Refill(s) l 15:53: Vin 00 busPIRone 0 Yes 7.5mg Take 7.5 [...] 6-19 mg by [facility] 7.5 MG 00:00: mouth 2 tablet 00 (two) times a day. buPROPion Yes 300mg Take 300 UT XL 6-19 mg by [facility] (Wellbutrin 00:00: mouth 1 XL) 300 MG 00 (one) time 24 hr each day tablet in the morning. metoprolol Yes 1{tbl} QD Take 1 UT succinate 5-25 tablet by [facility] h XL 00:00: mouth 1 (Toprol-XL) 00 (one) time 50 MG 24 hr each day. tablet ascorbic Yes 500mg Q.[id number] Take 500 UT acid 5-15 [id number] mg by [facility] (Vitamin C) 00:00: 3D mouth 3 500 MG 00 (three) tablet times a day. sucralfate Yes 1{tbl} QD Take 1 UT (Carafate) 5-10 tablet by [facility] th 1 g tablet 00:00: mouth 1 00 (one) time each day. zinc Yes DAILY [facility] sulfate 50 5-10 ity of mg zinc 00:00: [place] (220 mg) 00 Medical capsule Branch ondansetron Yes 4mg Take 4 mg U nivers 4 mg 4-13 by mouth ity of disintegrat [place] tablet 00 [place] [facility] GLIPIZIDE 5 0 Yes [id number] TAKE 1 Univers mg tablet -06 TABLET BY ity o f 00:00: MOUTH [place] 00 TWICE Medical DAILY Branch BEFORE BREAKFAST AND BEFORE SUPPER doxazosin 4 0 2020- No 4mg Take 4 mg Univers mg tablet 06-27 by mouth 2 ity of 10:52: 00:00 (two) [place] 22 :00 times Medical daily. Branch doxazosin 4 0 Yes 4mg Take 1 Univ ers mg tablet 06-27 tablet by ity o f 00:00: mouth at [place] [address] bedtime. Medical Branch doxazosin 4 Yes 4mg Take 1 Univ ers mg tablet -07 tablet by ity o f 00:00: mouth at [place] [address] bedtime. Medical Branch glipiZIDE 5 2019-06- No [id number] 5mg Take 1 Univers mg tablet 1-04 24-06 tablet by ity of 00:00: 00:00 mouth [...] by ity of tablet 00:00: mouth at [place] [address] bedtime. Medical Branch traZODone Yes 150mg Take 150 Uni vers 150 mg 8-13 mg by ity of tablet 00:00: mouth at [place] [address] bedtime. Medical Branch erythromyci 2020- No [id number] .5[in_u Place 0.5 Univers n 5 mg/gram [...] for Wheezing or Shortness of Breath. albuterol 2018-0 Yes 2{puff} Inhale 2 U nivers 90 5-06 Puffs ity of mcg/actuati 00:00: every 4 Baljinder as on inhaler 00 (four) Medical hours as Branch needed for Wheezing or Shortness of Breath. artificial 2018-0 Yes 1[drp] Place 1 Un lori tears,hypro [...] l 59 Center hydrALAZINE 2017-0 Yes 100mg Q.[id number] Take [address] [facility] (APRESOLINE 7-20 [id number] mg by L ukes ) 100 MG 15:20: 3D mouth 3 Medica l tablet 59 (three) Center times daily. magnesium 2017-0 Yes 400mg QD Take [address] [facility] oxide 7-20 mg by [facility] (MAG-OX) 15:20: mouth Medical 400 mg 59 daily. Center tablet metoclopram 2017- Yes 10mg Q.50071485 Take [address] [facility] gadiel HCl 7-20 [id number] by mouth 3 [facility] (REGLAN) 10 15:20: [...] l 59 Center hydrALAZINE 2017-0 Yes 100mg Q.[id number] Take [address] [facility] (APRESOLINE 7-20 [id number] mg by L ukes ) 100 MG 15:20: 3D mouth 3 Medica l tablet 59 (three) Center times daily. magnesium 2017-0 Yes 400mg QD Take [address] [facility] oxide 7-20 mg by [facility] (MAG-OX) 15:20: mouth Medical 400 mg 59 daily. Center tablet metoclopram 2017- Yes 10mg Q.07691703 Take [address] [facility] gadiel HCl 7-20 [id number] by mouth 3 [facility] (REGLAN) 10 15:20: [...] l 59 Center hydrALAZINE 2017-0 Yes 100mg Q.[id number] Take [address] [facility] [address] (APRESOLINE 7-20 [id number] mg by L ukes ) 100 MG 15:20: 3D mouth 3 Medica l tablet 59 (three) Center times daily. magnesium 2017-0 Yes 400mg QD Take [address] [facility] [address] oxide 7-20 mg by [facility] (MAG-OX) 15:20: mouth Medical 400 mg 59 daily. Center tablet metoclopram 2017- Yes 10mg Q.58699345 Take [address] [facility] gadiel HCl 7-20 [id number] by mouth 3 [facility] (REGLAN) 10 15:20: [...] l 59 Center hydrALAZINE 2017-0 Yes 100mg Q.[id number] Take [address] [facility] [address] (APRESOLINE 7-20 [id number] mg by L ukes ) 100 MG 15:20: 3D mouth 3 Medica l tablet 59 (three) Center times daily. magnesium 2017-0 Yes 400mg QD Take [address] [facility] [address] oxide 7-20 mg by [facility] (MAG-OX) 15:20: mouth Medical 400 mg 59 daily. Center tablet metoclopram 2017-0 Yes 10mg Q.[id number] Take [address] [facility] gadiel HCl 7-20 [id number] by mouth 3 [facility] (REGLAN) 10 15:20: [...] l 59 Center hydrALAZINE 2017-0 Yes 100mg Q.[id number] Take [address] [facility] [address] (APRESOLINE 7-20 [id number] mg by L ukes ) 100 MG 15:20: 3D mouth 3 Medica l tablet 59 (three) Center times daily. magnesium 2017-0 Yes 400mg QD Take [address] [facility] [address] oxide 7-20 mg by [facility] (MAG-OX) 15:20: mouth Medical 400 mg 59 daily. Center tablet metoclopram 2017- Yes 10mg Q.04107807 Take [address] [facility] gadiel HCl 7-20 [id number] by mouth 3 [facility] (REGLAN) 10 15:20: [...] l 59 Center hydrALAZINE 2017-0 Yes 100mg Q.[id number] Take [address] [facility] [address] (APRESOLINE 7-20 [id number] mg by L ukes ) 100 MG 15:20: 3D mouth 3 Medica l tablet 59 (three) Center times daily. magnesium 2017- Yes 400mg QD Take [address] [facility] [address] oxide 7-20 mg by [facility] (MAG-OX) 15:20: mouth Medical 400 mg 59 daily. Center tablet metoclopram 2017- Yes 10mg Q.02239675 Take [address] [facility] gadiel HCl 7-20 [id number] by mouth 3 [facility] (REGLAN) 10 15:20: [...] l 59 Center hydrALAZINE 2017-0 Yes 100mg Q.[id number] Take [address] [facility] [address] (APRESOLINE 7-20 [id number] mg by L ukes ) 100 MG 15:20: 3D mouth 3 Medica l tablet 59 (three) Center times daily. magnesium 2017 Yes 400mg QD Take [address] [facility] [address] oxide 7-20 mg by [facility] (MAG-OX) 15:20: mouth Medical 400 mg 59 daily. Center tablet metoclopram 2017 Yes 10mg Q.24026344 Take [address] [facility] gadiel HCl 7-20 [id number] by mouth 3 [facility] (REGLAN) 10 15:20: [...] l 59 Center hydrALAZINE 2017-0 Yes 100mg Q.[id number] Take [address] [facility] [address] (APRESOLINE 7-20 [id number] mg by L ukes ) 100 MG 15:20: 3D mouth 3 Medica l tablet 59 (three) Center times daily. magnesium 2017-0 Yes 400mg QD Take [address] [facility] oxide 7-20 mg by [facility] (MAG-OX) 15:20: mouth Medical 400 mg 59 daily. Center tablet metoclopram 2017-0 Yes 10mg Q.[id number] Take [address] [facility] gadiel HCl 7-20 [id number] by mouth 3 [facility] (REGLAN) 10 15:20: [...] l 59 Center hydrALAZINE 2017-0 Yes 100mg Q.[id number] Take [address] [facility] [address] (APRESOLINE 7-20 [id number] mg by L ukes ) 100 MG 15:20: 3D mouth 3 Medica l tablet 59 (three) Center times daily. magnesium 2017-0 Yes 400mg QD Take [address] [facility] [address] oxide 7-20 mg by [facility] (MAG-OX) 15:20: mouth Medical 400 mg 59 daily. Center tablet metoclopram 2017-0 Yes 10mg Q.[id number] Take [address] [facility] gadiel HCl 7-20 [id number] by mouth 3 [facility] (REGLAN) 10 15:20: [...] = 1 Me moria 40 MG Oral 2- tab, PO, l Tablet 15:07: Daily, # [place] 00 30 tab, 0 Refill(s), Pharmacy: [facility] [id number] Bumex No 0.5 mg, Memoria 2- Route: PO, l 15:00: Drug form: Vin 00 TAB, Daily, Dosing Weight 92.273, kg, Start date: 07/30/16 9:00:00 MOTOR MAN, Duration: 30 day, Stop date: 08/28/16 9:00:00 MOTOR MAN Lasix No Notes: Memoria 2-08 (Same as: l 20:05: Lasix) October cause GI upset. Give with food or milk. Hydralazine No Notes: Mendoza janice 2-08 (Same as: l 06:05: Apresoline [place] 00 ) Push over 5 minutes sodium 2017-0 No 1,000 mL, Memori a chloride 2-05 Rate: 125 l 0.9% 1000 18:26: ml/hr, Jake n ml INJ 00 Infuse 1,000 mL over: 8 hr, Route: IV, Dosing Weight 92.273 kg, Total Volume: 1,000, Start date: 07/26/16 12:26:00 MOTOR MAN, Duration: 30 day, Stop date: 08/25/16 12:25:00 MOTOR MAN Sodium 2017- No 500 mL, Memoria Chloride 2-05 500 ml/hr, l 0.154 13:30: Infuse Vin MEQ/ML 00 Over: 1 Injectable hr, Route: Solution IV, 500, Drug form: INJ, ONCE, Priority: STAT, Dosing Weight 92.273 kg, Start date: 07/26/16 7:30:00 MOTOR MAN, Duration: 1 doses or times, Stop date: 07/26/16 7:30:00 MOTOR MAN Insulin No 60 units) Mendoza janice regular 2-04 WASTE: F/P l 08:39: - Black; E [place] 00 - Municipal Trash Bin Stable for 28 days at room temperatur e Expires in days from ____Date Insulin, No Notes: Memoria Aspart, 2-04 Roll in l Human 07:31: palms of [place] 00 hands gently; Do not shake vigorously [...] Roll in l Human 03:28: palms of [place] 00 hands gently; Do not shake vigorously . (Same as: NovoLOG) "single patient use only" WASTE: F/P - Black; E - Municipal Trash Bin Stable for 28 days at room temperatur e. Expires in days from ____Date atorvastati No Notes: Mendoza janice n - (Same as: l 03:00: Lipitor) divalproex No Notes: Memor ia sodium - (Same as: l 03:00: Depakote [place] 00 ER) Once daily dosing; indicated for [...] Weight 92.273, kg, Start date: 07/24/16 9:00:00 MOTOR MAN, Duration: 30 day, Stop date: 08/22/16 9:00:00 MOTOR MAN 24 HR No Notes: Memoria Divalproex 2-03 [...] form: ERTAB, Daily, Start date: 07/24/16 9:00:00 MOTOR MAN, Duration: 30 day, Stop date: 08/22/16 9:00:00 MOTOR MAN Insulin No Notes: Memoria Glargine 2-03 Same as: l 100 UNT/ML 15:00: Lantus) Do H ermann Injectable not hold Solution insulin [Lantus] without contacting prescriber WASTE: F/P - Black; E - Municipal Trash Bin Hydralazine No Notes: Mendoza janice Hydrochlori 2- (Same as: l de 100 MG 15:00: [...] days from ____Date Dilaudid No Notes: Memoria 2- Same as l 11:28: Dilaudid Insulin, No Notes: Memoria Aspart, 07-24 Roll in l Human 08:40: palms of [place] 00 hands gently; Do not shake vigorously . (Same as: NovoLOG) "single patient use only" WASTE: F/P - Black; E - Municipal Trash Bin Stable for 28 days at room temperatur e. Expires in days from ____Date Glucagon No 1 mg, Memoria 07-24 Route: IM, l 08:40: Drug form: [place] 00 PDR/INJ, PRN, Dosing Weight 92.273, kg, PRN Blood Glucose Results, Start date: 07/24/16 2:40:00 MOTOR MAN, Duration: 30 day, Stop date: 08/23/16 2:39:00 MOTOR MAN Dextrose No 25 gm, 50 Mendoza janice 50% Syringe 2-03 mL, Route: l 08:40: IVP, Drug Form: INJ, Dosing Weight 92.273, kg, PRN, PRN Blood Glucose Results, Start date: 07/24/16 2:40:00 MOTOR MAN, Duration: 30 day, Stop date: 08/23/16 2:39:00 MOTOR MAN Docusate No Notes: Memoria 07-24 (Same as: l 07:20: Colace) (Do Not Crush) Ondansetron No Notes: Mendoza janice 2-03 (Same as: l 07:20: Zofran) Vin 00 MEDICATION WASTE Product Size: 4 mg Product Wasted: ___ mg Lasix No Notes: Memoria 2- (Same as: l 06:01: Lasix) [place] 00 MEDICATION WASTE Product Size: 40 mg Product Wasted: ___ mg Aspirin No Notes: Memoria 2- Take with l 05:48: food. [place] 00 Prednisone No Notes: Memor ia 2- Take with l 05:02: food. [place] 00 Albuterol No Notes: Memori a 0.833 MG/ML 07-24 (Same as: l / 04:09: Duoneb) [place] Ipratropium 00 [place] 0.167 MG/ML Inhalant Solution [DuoNeb] Furosemide 2015-06 Yes 80 mg = 2 Me moria 40 MG Oral 2-26 tab, PO, l Tablet 16:34: BID, # 120 Nidia nn 00 tab, 0 Refill(s) atorvastati 2015-06 Yes 40 mg = 1 M emoria n 40 mg 2-26 tab, PO, l oral tablet 16:34: Bedtime, # [place] 00 30 tab, 0 Refill(s) Insulin 2015-06 [...] tab, PO, l tablet 16:34: Daily, # [place] 00 30 tab, 0 Refill(s) Lasix 2015-06 No Notes: Memoria 2-26 (Same as: l 15:00: Lasix) May [place] 00 cause GI upset. Give with food or milk. Magnesium 2015-06 No Notes: Memori a Oxide 2-24 (Same as: l 13:36: Mag-Ox [place] 00 400) Magnesium oxide 080br=133v g elemental magnesium Dose=____m g magnesium oxide (___mg elemental magnesium) Magnesium 2015-06 No Notes: Memori a Oxide 2-24 (Same as: l 09:47: Mag-Ox Vin 00 400) Magnesium oxide 260eq=418t g elemental magnesium Dose=____m g magnesium oxide [...] XL 2-24 (Same as: l 00:00: Wellbutrin [place] 00 XL) "Do Not Crush" Norvasc 2015-06 [...] tab, PO, l tablet 15:35: Daily, 0 [place] 00 Refill(s) pravastatin 2015-06 No 40 mg = 1 M emoria 40 mg oral 2-23 tab, PO, l tablet 15:35: Daily, 0 Vin 00 Refill(s) Sertraline 2015-06 Yes 200 mg = 2 M emoria 100 MG Oral 2-23 tab, PO, l Tablet 15:27: Daily, 0 [place] [Zoloft] 00 Refill(s) pantoprazol 2015-06 Yes 40 mg = 1 M emoria e 40 MG 2-23 tab, PO, l Enteric 15:27: Daily, 0 Jake n Coated 00 Refill(s) Tablet [Protonix] gabapentin 2015-06 Yes 1 CAP PO Mem oria 300 MG Oral 2-23 BID AND 1 l Capsule 15:27: CAP AT [place] 00 BEDTIME, 0 Refill(s) Insulin, 2015-06 No [...] Weight 86.364, kg, Start date: 06/11/16 9:00:00 MOTOR MAN, Duration: 30 day, Stop date: 07/10/16 9:00:00 MOTOR MAN Insulin 2015-06 No Notes: Memoria Glargine 2-22 [...] sodium, 2- porcine l porcine 06:00: heparin [place] 2500 UNT/ML 00 Injectable Solution Albuterol 2015-06 No Notes: Memori a 0.833 MG/ML 08-12 (Same as: l / 03:00: Duoneb) [place] Ipratropium 00 [place] 0.167 MG/ML Inhalant Solution [DuoNeb] gabapentin 2015-06 No 300 mg, Mendoza janice 300 MG Oral 08-12 Route: PO, l Capsule 03:00: Drug form: Herm naeem 00 CAP, Q12H, Dosing Weight 86.364, kg, (CrCl 30 - 59 ml/min), Start date: 06/10/16 21:00:00 MOTOR MAN, Duration: 30 day, Stop date: 07/10/16 9:00:00 MOTOR MAN divalproex 2015-06 No Notes: Memor ia sodium 08-12 (Same as: l 03:00: Depakote [place] 00 ER) Once daily dosing; indicated for [...] Blood Glucose Results, Start date: 06/10/16 18:50:00 MOTOR MAN, Duration: 30 day, Stop date: 07/10/16 18:49:00 MOTOR MAN Glucagon 2015-06 No 1 mg, Memoria 2-22 Route: IM, l 00:50: Drug form: [place] 00 PDR/INJ, PRN, Dosing Weight 86.364, kg, PRN Blood Glucose Results, Start date: 06/10/16 18:50:00 MOTOR MAN, Duration: 30 day, Stop date: 07/10/16 18:49:00 MOTOR MAN Hydralazine 2015-06 No Notes: Mendoza janice 2-22 [...] janice 2-22 Route: IV, l 00:06: ONCE, [place] 00 Dosing Weight 86.364, kg, Start date: 06/10/16 18:06:00 MOTOR MAN, Stop date: 06/10/16 18:06:00 MOTOR MAN hydrOXYzine 2015-06 No Notes: Mendoza janice pamoate 2-21 (Same as: l 23:00: Vistaril) [place] 00 Furosemide 2015-06 No 60 mg, Memor ia 2-21 Route: l 22:32: IVP, Drug [place] 00 form: INJ, ONCE, Dosing Weight 86.364, kg, Start date: 06/10/16 16:32:00 MOTOR MAN, Stop date: 06/10/16 16:32:00 MOTOR MAN Lasix 2015-06 No Notes: Memoria 2-21 (Same as: l 17:22: Lasix) [place] 00 MEDICATION WASTE Product Size: 40 mg Product Wasted: _0__ mg Albuterol 2015-06 No Notes: Memori a 0.833 MG/ML 08-11 (Same as: l / 17:22: Duoneb) Ipratropium 00 [place] 0.167 MG/ML Inhalant Solution [DuoNeb] Promethazin Yes 25 mg = 1 M emoria e 06 supp, NE, l Hydrochlori 14:45: Q6H, Jake gonzalez de [...] 11:17: Erythromyci Yes 0 Memori a n 06 Refill(s) l 11:16: Tramadol Yes 0 Memoria [...] Gary 5 mL, Memor ia Flush 0.9% 026 Marry Route: l 04:10: IVP, Drug Form: [...] Rate: 125 l 0.9% IV 04:10: ml/hr, [place] 1,000 mL 00 Infuse over: 8 hr, [...] 6-11 Deangelo tab, PO, l tablet 11:11: Birsa QID-Before H ermann 13 Meals, 120 tab, 1, 1, Substituti on Allowed insulin No Blake 10 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, 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 6-11 Deangelo 0.1 mL, l H 02:00: [...] 6-10 Omidvar Route: l 21:33: IVP, ONCE, [place] Start date: 11/29/11 16:33:00, Stop date: 11/29/11 16:33:00 morphine 2011-0 No [place] 2 mg, 0.5 Me moria Sulfate 6-10 Omidvar mL, Route: l 21:32: IVP, Drug [place] 00 form: INJ, ONCE, Start date: 11/29/11 16:32:00, Stop date: 11/29/11 16:32:00 Tylenol 2011-0 No [place] 650 mg, 2 Mem oria 6-10 Omidvar tab, l 19:16: Route: PO, Vin Drug form: TAB, Q4H, PRN Pain, Start date: 11/29/11 14:16:00, Duration: 30 day, Stop date: 12/29/11 14:15:00 insulin 2011-0 No Blake 14 unit, 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 6-10 Deangelo 0.14 mL, l H 14:00: [...] 30 day, Stop date: 12/28/11 9:00:00 lisinopril 0 No Blake 40 mg, 2 Memoria 6-10 [...] l IV 1,000 mL 06:29: Brisa ml/hr, [place] Infuse over: 5 hr, Route: IV, Dosing [...] mL, Route: l 02:31: Brown IVP, Drug [place] 00 form: INJ, ONCE, Priority: STAT, Start date: 11/28/11 21:31:00, Stop date: 11/28/11 21:31:00 NS (Bolus) No Arif Domenico 1,000 mL, Memoria IV 1,000 mL 11-27 Rate: l 22:48: 1,000 Vin 00 ml/hr, Infuse over: 1 hr, Route: IV, Dosing Weight 57.273 kg, Total Volume: 1,000, Start date: 11/28/11 17:48:00, Duration: 30 day, Stop date: 12/28/11 17:47:00 NS (Bolus) 2011-0 No Arif Domenico 1,000 mL, Memoria IV 1,000 mL 11-27 Rate: l 20:36: 1,000 [place] 00 ml/hr, Infuse over: 1 hr, Route: [...] Hughes-Jason 8 unit, M emoria 100 3-30 [place] SUB-Q, l units/mL 17:47: [place] Q12H, 2 He rmann injectable 42 Pu vial, solution Substituti on Allowed, SOLN Novolin N Yes Hughes-Jason 10 unit, Memoria 100 3-30 [place] SUB-Q, l units/mL 17:46: [place] Bedtime, H ermann subcutaneou 27 Pu 10 ml, s injection Substituti on Allowed, SUSP Novolin N Yes Hughes-Jason 14 unit, Memoria 100 3-30 [place] SUB-Q, l units/mL 17:44: Adwson QAM, 1 Her braden subcutaneou 37 Pu vial, s injection Substituti on Allowed, SUSP magnesium No Hughes-Jason 400 mg, 1 Memoria oxide 3-30 [place] tab, l 14:55: [place] Route: PO, Her braden 00 Pu Drug form: TAB, ONCE, Priority: STAT, Start date: 09/18/11 9:55:00, Stop date: 09/18/11 9:55:00 Insulin No Hughes-Jason 8 unit, Mem oria regular 3-30 [place] 0.08 mL, l 14:22: [place] Route: Vin 00 Pu SUB-Q, Drug form: SOLN, ONCE, Priority: STAT, Start date: 09/18/11 9:22:00, Stop date: 09/18/11 9:22:00 Lactated 2011- No Hughes-Jason 1,000 mL, Memoria Ringers 3-30 [place] Rate: l (Bolus) IV 14:16: [place] 1,000 He rmann 1,000 mL 00 Pu ml/hr, Infuse over: 1 hr, Route: IV, Total Volume: 1,000, Bolus Dose, Priority: STAT, Start date: 09/18/11 9:16:00, Duration: 1 doses or times, Stop date: 09/18/11 10:15:00 Sodium 2012-0 No Hughes-Jason 1,000 mL, Me moria Chloride 3-30 [place] Rate: l 0.9% 14:06: [place] 1,000 Vin (Bolus) IV 00 Pu ml/hr, 1000 mL Infuse over: 1 hr, Route: IV, kg, Total Volume: 1,000, Bolus Dose, Priority: STAT, Start date: 09/18/11 9:06:00, Duration: 1 doses or times, Stop date: 09/18/11 10:05:00 sulfamethox 2011-0 Yes Substituti Memoria azole 3-30 on Allowed l 14:04: [place] 58 Sodium 2011-0 No Hughes-Jason 1,000 mL, Me moria Chloride 3-30 [place] Rate: l 0.9% 13:56: Dawson 1,000 [place] (Bolus) IV 00 Pu ml/hr, 1000 mL Infuse over: 1 hr, Route: IV, kg, Total Volume: 1,000, Bolus Dose, Priority: STAT, Start date: 09/18/11 8:56:00, Duration: 1 doses or times, Stop date: 09/18/11 9:55:00 clindamycin 2011-0 No Eber L 300 mg, 2 Memoria 3-21 Anabelle cap, l 21:00: Route: PO, [place] 00 Drug form: CAP, Q8H, Start date: [...] braden 55 cap, Substituti on Allowed, CAP [place] Yes Luna 1 tab, PO, Memoria 10/325 oral 3-21 Amelia Q4H, PRN, l tablet 18:46: Zeeshan 30 tab, Herm naeem 36 Pain, Substituti on Allowed, Maintenanc e, TAB [place] No Hollie Go 1 tab, Mendoza janice [...] 3-19 Omidvar tab, l 15:30: Route: PO, [place] 00 Drug form: TAB, Daily, Start date: [...] moria 3-19 Josefina 0.1 mL, l 14:19: [place] Route: Vin 00 IVP, Drug form: INJ, Q2MIN, PRN Narcotic Reversal, Start date: 09/07/11 9:19:00, Duration: 8 doses or times, Stop date: Limited # of times ondansetron No Gayle 4 mg, 2 Memoria 3-19 Josefina mL, Route: l 14:19: [place] IVP, Drug Jake n 00 form: INJ, ONCE, PRN Nausea & Vomiting, Start date: 09/07/11 9:19:00 hydromorpho No Gayle 0.5 mg, Memoria ne 09-06 Josefina 0.25 mL, l 14:19: [place] Route: [place] 00 IVP, Drug form: INJ, Q5Min, PRN [...] Memoria 09-06 Arias Route: l 13:31: IVPB, [place] 00 ONCE, Start date: 09/07/11 8:31:00, Stop [...] 3-17 Omidvar tab, l 14:11: Route: PO, [place] Drug form: ERTAB, ONCE, Start date: 09/05/11 [...] Duration: 30 day, Stop date: 10/04/11 18:10:00 [place] 2011-0 No Mahammad 1 tab, Memori a [...] Kavon mL, Route: l 14:50: IVP, Drug [place] 00 form: INJ, ONCE, PRN Nausea & Vomiting, Start date: 09/04/11 9:50:00, Duration: 1 doses or times, Stop date: Limited # of times ropivacaine 2011-0 No Rosalino Dosing: Memoria 0.2% in NS 3-16 Kavon 10cc/hr, l - site 1 14:50: Route: [place] 400 mL 00 NERVE BLOCK, Start date: 09/04/11 9:50:00 400 mL, Duration: 30 day, Stop date: 10/04/11 9:49:00 naloxone 2011-0 No Rosalino 0.04 mg, Me moria 3-16 Kavon 0.1 mL, l 14:50: Route: Vin 00 IVP, Drug form: INJ, Q2MIN, PRN Narcotic Reversal, Start date: 09/04/11 9:50:00, Duration: 30 day, Stop date: 10/04/11 9:49:00 [place] 2011-0 No [place] 1 tab, Memoria 10/325 oral 3-16 Omidvar Route: PO, l tablet 14:49: Drug Form: Nidia nn 00 TAB, Q4H, PRN Pain, Start date: 09/04/11 9:49:00, Stop date: 10/04/11 9:48:00 labetalol 2011- No Gregory F 5 mg, Mendoza janice 3-16 [place]uga Route: IV, l 14:40: ONCE, [place] Start date: 09/04/11 9:40:00, Stop date: 09/04/11 [...] 3-15 Anabelle mL, Route: l 16:00: IVPB, [place] 00 [id number], Start date: 09/03/11 11:00:00, Duration: 30 day, Stop date: 10/03/11 8:00:00 potassium 2011-0 No [place] 40 mEq, 2 M emoria chloride 3-15 Omidvar tab, l 13:39: Route: PO, Vin 00 Drug form: ERTAB, ONCE, Start date: 09/03/11 8:39:00, Stop date: 09/03/11 8:39:00 [place] 5/325 2011-0 No Rosalino 1 tab, M [...] 3-14 Anabelle cap, l 17:00: Route: PO, [place] 00 Drug form: ERCAP, Daily, Give qAM after today's dose., Start date: 09/02/11 12:00:00, Duration: 30 day, Stop date: 10/02/11 9:00:00 [place] 5/325 2011-0 No Rosalino 1 tab, M emoria oral tablet 3-14 Kavon Route: PO, l 16:25: Drug Form: [place] 00 TAB, Q4H, PRN Pain, Start date: [...] Route: l 14:00: IVPB, Drug form: INJ, [id number], Start date: 09/02/11 9:00:00, Duration: 30 day, Stop date: 10/01/11 21:00:00 clindamycin 2011-0 No Eber L 600 mg, 4 Memoria (SCIP) 3-14 Anabelle mL, Route: l 10:00: IVPB, Vin [id number], Start date: 09/02/11 5:00:00, Duration: 3 doses or times, Stop date: 09/02/11 21:00:00 clindamycin 2011-0 No Yury 600 mg, 4 Memoria (SCIP) 3-14 Brandon mL, Route: l 04:00: Connally IVPB, [place] 00 [id number], Start date: 09/01/11 23:00:00, Duration: 3 doses or times, Stop date: 09/02/11 15:00:00 insulin 2011-0 No [place] 15 unit, Mendoza janice 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 3-14 Omidvar 0.15 mL, l H 02:00: Route: Vin 00 SUB-Q, Drug form: INJ, Q12H, Start date: 09/01/11 21:00:00, Stop date: 10/01/11 9:00:00 labetalol No Mariaelena-Corea 5 mg, Me moria 3-14 Barbra Route: l 01:07: Feliciano IVP, [place] 00 Q5Min, PRN Elevated BP, Start date: 09/01/11 20:07:00, Duration: 5 doses or times, Stop date: Limited # of times hydrALAZINE No Mariaelena-Corea 5 mg, Memoria 3-14 Barbra Route: l 01:07: Feliciano IVP, [place] 00 Q5Min, PRN Elevated BP, Start date: 09/01/11 20:07:00, Duration: 4 doses or times, Stop date: Limited # of times hydromorpho No Mariaelena-Corea 0.5 mg, Memoria ne 3-14 Barbra Route: l 01:07: Feliciano IVP, [place] 00 Q5Min, PRN Pain Score 4-6, Start date: 09/01/11 20:07:00, Duration: 5 doses or times, Stop date: Limited # of times naloxone No Mariaelena-Corea 0.04 mg, Memoria 3-14 Barbra Route: l 01:07: Feliciano IVP, [place] 00 Q2MIN, PRN Narcotic Reversal, Start date: 09/01/11 20:07:00, Duration: 8 doses or times, Stop date: Limited # of times flumazenil No Mariaelena-Corea 0.2 mg, Memoria 3-14 Barbra Route: l 01:07: Feliciano IVP, PRN, [place] 00 PRN Benzodiaze pine Reversal, Initial dose, Start date: 09/01/11 20:07:00, Duration: 30 day, Stop date: 10/01/11 20:06:00 ondansetron No Mariaelena-Corea 4 mg, Memoria 3-14 Barbra Route: l 01:07: Feliciano IVP, ONCE, Vin 00 PRN Nausea & Vomiting, Start date: 09/01/11 20:07:00 vancomycin 2012-0 No Mele 1 gm, Mem oria 3-14 Gauvain Route: l 01:00: IVPB, Drug form: INJ, [id number], Start date: 09/01/11 20:00:00, Duration: 30 day, [...] Route: l 00:00: IVPB, Drug form: INJ, [id number], Start date: 09/01/11 19:00:00, Duration: 30 day, Stop date: 10/01/11 7:00:00 insulin 2011- No Missael 6 unit, Memori a aspart 3-13 Movva 0.06 mL, l 23:23: Route: [place] SUB-Q, Drug form: SOLN, TID-Before Meals, PRN Blood Glucose Results, Start date: 09/01/11 18:23:00, Duration: 30 day, Stop date: 10/01/11 18:22:00 glucagon 2011-0 No Missael 1 mg, Memoria 3-13 Movva Route: IM, l 23:23: Drug form: [place] 00 PDR/INJ, PRN, PRN Blood Glucose Results, [...] Beni mL, Route: l 21:14: IVP, Drug [place] 00 form: INJ, Q4H, PRN Severe Pain, Start date: 09/01/11 16:14:00, Stop date: 10/01/11 16:13:00 Lactated 2011-0 No Cesar 1,000 mL, Me moria Ringers IV 3-13 Manuel [place] Rate: 100 l 1,000 mL 19:03: ml/hr, [place] 00 Infuse over: 10 hr, Route: IV, [...] Madden 0.08 mL, l 15:28: Gurinder Route: [place] 00 SUB-Q, Drug form: SOLN, ONCE, Priority: STAT, Start date: 09/01/11 10:28:00, Stop date: 09/01/11 10:28:00 Sodium 2011-0 No Enid 1,000 mL, Memori a Chloride 3-13 Madden Rate: l 0.9% 14:53: Gurinder 1,000 [place] (Bolus) IV 00 ml/hr, 1,000 mL Infuse [...] L 1,000 mL, M emoria Chloride 3-13 [place] Rate: l 0.9% 10:41: 1,000 [place] (Bolus) IV 00 ml/hr, 1000 mL Infuse over: 1 hr, Route: IV, Dosing Weight 68.182 kg, Total Volume: 1,000, Bolus Dose, Priority: STAT, Start date: 09/01/11 5:41:00, Duration: 1 doses or times, Stop date: 09/01/11 6:40:00 ondansetron 2011-0 No Bee L 4 mg, Memoria 3-13 Cruz[place] Route: l 09:06: IVP, Drug [place] 00 form: INJ, ONCE, Priority: STAT, Start date: 09/01/11 4:06:00, Stop date: 09/01/11 4:06:00 morphine 2011-0 No Bee L 4 mg, Mem oria Sulfate 3-13 [place] Route: l 09:06: IVP, ONCE, [place] 00 Priority: STAT, Start date: 09/01/11 4:06:00, [...] L 8 unit, Me moria regular 08-31 [place] 0.08 mL, l 08:30: Route: Vin 00 IVP, Drug form: SOLN, ONCE, Priority: STAT, Start date: 09/01/11 3:30:00, Stop date: 09/01/11 3:30:00 Sodium 2011- No Bee L 1,000 mL, M emoria Chloride 08-31 [place] Rate: l 0.9% 07:29: 1,000 Vin (Bolus) [...] Akmal SUB-Q, l units/mL 14:42: BID, 3 [place] subcutaneou 04 vial, 3, s injection 3, Substituti on Allowed, SUSP insulin Yes Brooks Noam 5 Units, Memoria regular 3-04 Akmal SUB-Q, l human 14:40: TID, 30 [place] recombinant 10 vial, 3, 100 3, units/mL [...] chloride 3-04 Akmal Route: l 13:28: IVPB, [place] 00 ONCE, Priority: STAT, Start date: 08/23/11 [...] 6:27:00, Stop date: 08/23/11 6:27:00 magnesium No Brooks Noam 2 gm, 50 Memoria [...] 100 mL, l 15:12: Rivero Route: Nidia 00 IVPB, Drug form: INJ, ONCE, Start date: 08/21/11 9:12:00, Stop date: 08/21/11 9:12:00 lisinopril 2011-0 No Brooks Noam 40 mg, 2 Memoria 3-02 Akmal tab, l 15:00: Route: PO, Vin 00 Drug form: TAB, Daily, Start date: 08/21/11 9:00:00, Stop date: 09/19/11 9:00:00 hydrALAZINE 2011-0 No Yury 10 mg, 0.5 Memoria 3- Gato mL, Route: l 14:43: Rivero IVP, Drug He rmann form: INJ, Q6H, PRN Hypertensi on, Start date: 08/21/11 8:43:00, Duration: 30 day, Stop date: 09/20/11 8:42:00 Geodon 2011-0 No Yury 60 mg, 3 Mendoza janice 3- [place] cap, l 03:00: Riveor Route: PO, H erm 00 Drug form: CAP, ONCE, Start date: 08/20/11 21:00:00, Stop date: 08/20/11 21:00:00 Cogentin 2011-0 No Yury 1 mg, 1 Mem oria 3- Gato tab, l 03:00: Rivero Route: PO, H ermann Drug form: TAB, Q12H, Start date: 08/20/11 [...] Stop date: 09/19/11 14:29:00 Zofran 2011-0 No Bsimark 4 mg, 2 Memori a 3-01 Rodriguez mL, Route: l 17:15: Ahmed IVP, Drug 00 form: INJ, Q8H, PRN Nausea, Start date: 08/20/11 11:15:00, Duration: 30 day, Stop date: 09/19/11 11:14:00 insulin 2011-0 No Yury 10 unit, 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 08-19 Gato Route: l H 16:00: Rivero SUB-Q, Nidia nn 00 ONCE, Start date: 08/20/11 10:00:00, Stop date: 08/20/11 10:00:00 trazodone 2011- Yes 200 mg, 2 Mem oria 100 mg oral 3- tab, PO, l tablet 15:37: Bedtime, Vin [...] 2011- No Yury 10 unit, 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 08-19 Gato Route: l H 15:00: Rivero [...] 2011-0 No Yury 75 mg, 1 Memoria - Gato cap, l 15:00: Rivero Route: PO, H ermann Drug form: ERCAP, Daily, Start date: 08/20/11 [...] Insulin 2011- No Yury 6 unit, Mendoza janiec regular 08-19 Gato 0.06 mL, l 09:38: Rivero Route: Nidia nn 00 SUB-Q, Drug form: SOLN, ONCE, Start date: 08/20/11 3:38:00, Stop date: 08/20/11 3:38:00 Insulin 2011-0 No Brooks Noam 10 unit, Memoria regular 3- Akmal SUB-Q, l 09:28: BID, Vin 23 Substituti on Allowed insulin 2011- No 10 unit, Memori a 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 3- SUB-Q, l H 09:26: BID, Vin 18 Substituti on Allowed NS 1,000 mL 2011- No Brooks Noam 1,000 mL, Memoria 3-01 Akmal Rate: [...] 2011-0 No Yury 18 unit, 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 3- Gato 0.18 mL, l H 08:58: [...] Syringe 08-19 Gato ml, Route: l 08:46: Mat IVP, Drug He rmann 00 Form: INJ, PRN, PRN Blood Glucose Results, Start date: 08/20/11 2:46:00, Duration: 30 day, Stop date: 09/19/11 3:45:00 ondansetron No [facility] [place] Route: l 07:42: Dawson IVP, Drug Herm naeem 00 Pu form: INJ, ONCE, Priority: STAT, Start date: 08/20/11 1:42:00, Stop date: 08/20/11 1:42:00 GI cocktail No Hughes-Jason 30 ml, Memoria 08-19 [place] Route: PO, l 05:12: Eunice Drug Form: Her braden 00 Pu SUSP, ONCE, STAT, Start date: 08/19/11 23:12:00, Stop date: 08/19/11 23:12:00 ondansetron No Hughes-Jason 4 mg, [facility] 08-19 [place] Route: PO, l 05:10: Eunice Drug form: Her braden 00 Pu TABDIS, ONCE, Priority: STAT, Start date: 08/19/11 23:10:00, Stop date: 08/19/11 23:10:00 Lactated 2011-0 No Hughes-Jason 1,000 mL, Memoria Ringers 08-19 [place] Rate: l (Bolus) IV 05:10: Eunice 1,000 He rmann 1000 mL 00 Pu ml/hr, Infuse over: 1 hr, Route: IV, Total Volume: 1,000, Bolus Dose, Priority: STAT, Start date: 08/19/11 23:10:00, Duration: 1 doses or times, Stop date: 08/20/11 0:09:00 Insulin 2011- No Hughes-Jason 7 unit, Mem oria regular 08-19 [place] 0.07 mL, l 04:15: Dawson Route: Vin [...] 2-29 tab, PO, l tablet 23:23: Bedtime, [place] 58 15 tab, Substituti on Allowed, TAB Effexor XR Yes Yury 75 mg, 1 Memoria 75 mg oral - Gato cap, PO, l capsule, 23:22: Rivero Daily, 30 [place] extended 24 cap, release Substituti on Allowed [...] 2020-02-20 Completed [facility] Vaccine 00:00:00 [facility] Influenza Virus 2020-02-20 Completed Universit y of Vaccine 00:00:00 [facility] TDAP (ADACEL) VACCINE 2019-07-25 Completed Uni versity of 00:00:00 [facility] Meningococcal B, OMV 2019-07-25 Completed Univ ersity of 00:00:00 [facility] Meningococcal 2019-07-25 Completed University of Polysaccharide 00:00:00 [place] [facility] (groups A, C, Y and Branc h W-135) conjugate vaccine (MCV4P) TDAP (ADACEL) VACCINE 2019-07-25 Completed Uni versity of 00:00:00 [facility] Meningococcal B, OMV 2019-07-25 Completed Univ ersity of 00:00:00 [facility] Meningococcal 2019-07-25 Completed University of Polysaccharide 00:00:00 [place] [facility] (groups A, C, Y and Branc h W-135) conjugate vaccine (MCV4P) Influenza Virus 2019-02-27 Completed Universit y of Vaccine Quad .5 mL IM 00:00:00 [facility]jinder [facility] 6+ MO Branch Influenza Virus 2019-02-27 Completed Universit y of Vaccine Quad .5 mL IM 00:00:00 Baljinder as Medical 6+ MO Branch hepatitis B vaccine 2018-04-07 Completed Memor iaiván [place] 00:00:00 influenza virus 2018-03-29 Completed [facility] Vin vaccine, inactivated 00:00:00 hepatitis B vaccine 2017-11-26 Completed Memor ial Vin 00:00:00 influenza virus 2017-10-25 Completed [facility] vaccine, inactivated 00:00:00 pneumococcal 2017-10-[address] [facility] 23-valent vaccine 00:00:00 Influenza Virus 2017-06-22 Completed Universit y of Vaccine Quad IM 3+ 00:00:00 [facility] Influenza Virus 2017-06-22 Completed Universit y of Vaccine Quad IM 3+ 00:00:00 [facility] Influenza Virus 2016-04-02 Completed Universit y of Vaccine Quad IM 3+ 00:00:00 [facility] Influenza Virus 2016-04-02 Completed Universit y of Vaccine Quad IM 3+ 00:00:00 [facility] Influenza Virus 2015-10-28 Completed [facility]it y of Vaccine Quad IM 3+ 00:00:00 [facility] Influenza Virus 2015-10-28 Completed [facility]it y of Vaccine Quad IM 3+ 00:00:00 [facility] Vital Signs Vital Name Observation Time Observation [...] 171 mm[Hg] Univer sity of [facility] Diastolic blood 2020-06-27 16:33:00 98 mm[Hg] Unive rsity [facility] Heart rate 2020-06-27 16:33:00 71 /min [facility] Respiratory rate 2020-06-27 16:29:00 19 /[facility] height 2020-06-27 16:29:00 154.9 cm [facility] Body weight 2020-06-27 16:29:00 77.293 kg [facility] BMI 2020-06-27 16:29:00 32.20 kg/m2 [facility] Oxygen saturation in 2020-06-27 16:29:00 99 /min [facility] Arterial blood by [facility] Pulse oximetry Branch Systolic blood 2020-06-27 16:33:00 171 mm[Hg] Univer sity of pressure [facility] Diastolic blood 2020-06-27 16:33:00 98 mm[Hg] Unive rsity of pressure [facility] Heart rate 2020-06-27 16:33:00 71 /min Universi ty [facility] Respiratory rate 2020-06-27 16:29:00 19 /min Univ ersity of [facility] Body height 2020-06-27 16:29:00 154.9 cm Universi ty [facility] Body weight 2020-06-27 16:29:00 77.293 kg Universi ty [facility] BMI 2020-06-27 16:29:00 32.20 kg/m2 [facility] Oxygen saturation in 2020-06-27 16:29:00 99 /min [facility] Arterial blood by [facility] Pulse oximetry Branch Height/Length 2021-07-08 11:50:13 154.9 cm Measured Weight Dosing 2021-07-08 11:50:13 85.00 kg Height/Length 2021-07-08 11:47:31 154.9 cm Measured Weight Dosing 2021-07-08 11:47:31 85.00 kg Height/Length 2021-07-08 11:47:20 154.9 cm Measured Weight Dosing 2021-07-08 11:47:20 85.00 kg Systolic blood 2021-07-08 19:43:00 189 mm[Hg] [facility] pressure Diastolic blood 2021-07-08 19:43:00 104 mm[Hg] [facility] pressure Heart rate 2021-07-08 18:56:00 74 /min [facility] Body temperature 2021-07-08 18:56:00 36.39 [facility] Body height 2021-07-08 18:56:00 157.5 cm [facility] Body weight 2021-07-08 18:56:00 72.938 kg [facility] BMI 2021-07-08 18:56:00 29.41 kg/m2 [facility] Oxygen saturation in 2021-07-08 18:56:00 100 /min [facility] Arterial blood by Pulse oximetry Respiratory rate 2021-06-18 16:36:00 11 /min [facility] Systolic (mm Hg) 2021-01-29 20:03:00 [facility] Diastolic (mm Hg) 2021-01-29 20:03:00 Mem orial Vin Systolic (mm Hg) 2021-01-29 19:40:00 Mendoza rial Vin Diastolic (mm Hg) 2021-01-29 19:40:00 Mem orial Vin Systolic (mm Hg) 2021-01-29 18:05:00 Mendoza rial [place] Diastolic (mm Hg) 2021-01-29 18:05:00 Mem orial [place] Respitory Rate 2021-01-29 16:55:00 Memori al [place] Temperature Oral (F) 2021-01-29 16:45:00 97.3 F Memorial Vin Respitory Rate 2021-01-29 16:45:00 Memori al [place] Respitory Rate 2021-01-29 16:30:00 Memori al Vin Temperature Oral (F) 2021-01-29 13:10:00 97.6 F [facility] [place] Systolic (mm Hg) 2021-01-27 05:00:00 Mendoza rial [place] Diastolic (mm Hg) 2021-01-27 05:00:00 Mem orial Vin Systolic (mm Hg) 2021-01-27 04:00:00 Mendoza rial [place] Diastolic (mm Hg) 2021-01-27 04:00:00 Mem orial Vin Systolic (mm Hg) 2021-01-27 03:00:00 Mendoza rial Vin Diastolic (mm Hg) 2021-01-27 03:00:00 Mem orial [place] Respitory Rate 2021-01-26 19:00:00 Memori al Vin Respitory Rate 2021-01-26 18:00:00 Memori al Vin Respitory Rate 2021-01-26 17:00:00 Memori al [place] Temperature Oral (F) 2021-01-22 13:00:00 97.6 F [facility] [place] Height 2021-01-21 18:25:00 149.86 cm [facility] [place] Weight 2021-01-21 18:25:00 Memorial Vin BMI Calculated 2021-01-21 18:25:00 Memori al [place] Height 2021-01-21 17:09:00 157.48 cm [facility] [place] Height 2021-01-21 13:09:00 157.48 cm Memorial Vin Weight 2021-01-21 13:09:00 [facility] [place] BMI Calculated 2021-01-21 13:09:00 Memori al [place] Heart Rate 2021-01-21 12:50:00 [facility] [place] Systolic (mm Hg) 2020-12-24 15:43:00 Mendoza rial Vin Diastolic (mm Hg) 2020-12-24 15:43:00 Mem orial [place] Heart Rate 2020-12-24 15:43:00 [facility] [place] Height 2020-12-24 15:43:00 154.94 cm Memorial Vin Weight 2020-12-24 15:43:00 Memorial Vin BMI Calculated 2020-12-24 15:43:00 Memori al [place] Systolic (mm Hg) 2016-07-30 14:00:00 Mendoza rial [place] Diastolic (mm Hg) 2016-07-30 14:00:00 Mem orial [place] Respitory Rate 2016-07-30 14:00:00 Memori al [place] Heart Rate 2016-07-30 14:00:00 [facility] [place] Temperature Oral (F) 2016-07-30 14:00:00 97.4 F [facility] [place] Systolic (mm Hg) 2016-07-30 10:45:00 Mendoza rial [place] Diastolic (mm Hg) 2016-07-30 10:45:00 Mem orial [place] Heart Rate 2016-07-30 10:45:00 [facility] [place] Temperature Oral (F) 2016-07-30 10:45:00 97.2 F [facility] [place] Respitory Rate 2016-07-30 10:45:00 Memori al [place] Heart Rate 2016-07-30 06:35:00 [facility] [place] Temperature Oral (F) 2016-07-30 06:35:00 97.0 F [facility] [place] Respitory Rate 2016-07-30 06:35:00 Memori al [place] Systolic (mm Hg) 2016-07-30 06:35:00 Mendoza rial Vin Diastolic (mm Hg) 2016-07-30 06:35:00 Mem orial Vin Weight 2016-07-24 02:13:00 Memorial Vin BMI Calculated 2016-07-24 02:13:00 Memori al Vin Height 2016-07-24 02:13:00 160.02 cm [facility] [place] Respitory Rate 2016-06-15 15:00:00 Memori al [place] Systolic (mm Hg) 2016-06-15 15:00:00 Mendoza rial [place] Diastolic (mm Hg) 2016-06-15 15:00:00 Mem orial Vin Respitory Rate 2016-06-15 14:00:00 Memori al [place] Systolic (mm Hg) 2016-06-15 14:00:00 Mendoza rial Vin Diastolic (mm Hg) 2016-06-15 14:00:00 Mem orial [place] Respitory Rate 2016-06-15 13:29:00 Memori al [place] Systolic (mm Hg) 2016-06-15 13:29:00 Mendoza rial Vin Diastolic (mm Hg) 2016-06-15 13:29:00 Mem orial Vin Temperature Oral (F) 2016-06-14 10:56:00 97.1 F Memorial Vin Temperature Oral (F) 2016-06-14 06:55:00 97.1 F Memorial Vin Temperature Oral (F) 2016-06-12 10:00:00 96.8 F Memorial Vin Weight 2016-06-11 04:25:00 [facility] [place] Height 2016-06-11 04:25:00 160.02 cm [facility] [place] BMI Calculated 2016-06-11 04:25:00 Memori al [place] Heart Rate 2016-06-11 02:04:00 [facility] [place] Heart Rate 2016-06-11 00:00:00 Memorial Vin Heart Rate 2016-06-10 20:30:00 [facility] [place] Weight 2016-06-10 16:04:00 Memorial Vin BMI Calculated 2016-06-10 16:04:00 Memori al Vin Height 2016-06-10 16:04:00 160.02 cm Memorial Vin Temperature Oral (F) 2014-06-26 15:12:00 98.0 F Memorial Vin Systolic (mm Hg) 2014-06-26 15:12:00 Mendoza rial [place] Heart Rate 2014-06-26 15:12:00 [facility] [place] Diastolic (mm Hg) 2014-06-26 15:12:00 Mem orial Vin Respitory Rate 2014-06-26 15:12:00 Memori al [place] Systolic (mm Hg) 2014-06-26 13:53:00 Mendoza rial [place] Diastolic (mm Hg) 2014-06-26 13:53:00 Mem orial Vin Respitory Rate 2014-06-26 13:53:00 Memori al Vin Temperature Oral (F) 2014-06-26 13:53:00 98.0 F Memorial Vin Temperature Oral (F) 2014-06-26 12:37:00 98.2 F [facility] [place] Respitory Rate 2014-06-26 12:37:00 Memori al Vin Systolic (mm Hg) 2014-06-26 12:37:00 Mendoza rial Vin Diastolic (mm Hg) 2014-06-26 12:37:00 Mem orial Vin Heart Rate 2014-06-26 09:21:00 Memorial Vin Heart Rate 2014-06-26 06:08:00 [facility] [place] Height 2014-06-26 05:35:00 154.94 cm Memorial Vin Weight 2014-06-26 05:35:00 Memorial Vin BMI Calculated 2014-06-26 05:35:00 Memori al [place] Respitory Rate 2013-04-15 06:10:00 Memori al Vin Diastolic (mm Hg) 2013-04-15 06:10:00 Mem orial Vin Heart Rate 2013-04-15 06:10:00 Memorial Vin Systolic (mm Hg) 2013-04-15 06:10:00 Mendoza rial Vin Temperature Oral (F) 2013-04-15 06:10:00 98.7 F [facility] [place] Respitory Rate 2013-04-15 05:37:00 Memori al [place] Diastolic (mm Hg) 2013-04-15 05:37:00 Mem orial Vin Systolic (mm Hg) 2013-04-15 05:37:00 Mendoza rial [place] Temperature Oral (F) 2013-04-15 05:37:00 98.2 F [facility] [place] Heart Rate 2013-04-15 05:37:00 Memorial Vin Height 2013-04-15 02:06:00 160.02 cm [facility] [place] Weight 2013-04-15 02:06:00 Memorial Vin Temperature Oral (F) 2013-04-15 02:06:00 98.6 F [facility] [place] Respitory Rate 2013-04-15 02:06:00 Memori al [place] Heart Rate 2013-04-15 02:06:00 Memorial Vin Diastolic (mm Hg) 2013-04-15 02:06:00 Mem orial [place] Systolic (mm Hg) 2013-04-15 02:06:00 Mendoza rial Vin Weight 2012-03-14 21:33:00 [facility] [place] Systolic (mm Hg) 2011-12-01 00:33:00 Mendoza rial [place] Respitory Rate 2011-12-01 00:33:00 Memori al Vin Heart Rate 2011-12-01 00:33:00 [facility] [place] Diastolic (mm Hg) 2011-12-01 00:33:00 Mem orial [place] Temperature Oral (F) 2011-12-01 00:33:00 99.6 F Memorial [place] Diastolic (mm Hg) 2011-11-30 21:00:00 Mem orial [place] Heart Rate 2011-11-30 21:00:00 [facility] [place] Respitory Rate 2011-11-30 21:00:00 Memori al [place] Systolic (mm Hg) 2011-11-30 21:00:00 Mendoza rial [place] Temperature Oral (F) 2011-11-30 21:00:00 99.8 F Memorial Vin Respitory Rate 2011-11-30 16:30:00 Memori al [place] Systolic (mm Hg) 2011-11-30 16:30:00 Mendoza rial [place] Diastolic (mm Hg) 2011-11-30 16:30:00 Mem orial Vin Heart Rate 2011-11-30 16:30:00 [facility] [place] Temperature Oral (F) 2011-11-30 16:30:00 99.8 F [facility] Vin Weight 2011-11-29 11:40:00 [facility] [place] Height 2011-11-29 11:40:00 157.48 cm Memorial Vin Weight 2011-11-28 17:16:00 [facility] Vin Weight 2011-09-18 13:30:00 [facility] [place] Height 2011-09-18 13:30:00 154.94 cm [facility] [place] Heart Rate 2011-09-09 13:31:00 [facility] [place] Systolic (mm Hg) 2011-09-09 13:02:00 Mendoza rial Vin Diastolic (mm Hg) 2011-09-09 13:02:00 Mem orial [place] Respitory Rate 2011-09-09 13:02:00 Memori al [place] Temperature Oral (F) 2011-09-09 13:02:00 97.5 F [facility] [place] Diastolic (mm Hg) 2011-09-09 08:00:00 Mem orial [place] Heart Rate 2011-09-09 08:00:00 [facility] [place] Temperature Oral (F) 2011-09-09 08:00:00 98.6 F [facility] [place] Respitory Rate 2011-09-09 08:00:00 Memori al Vin Systolic (mm Hg) 2011-09-09 08:00:00 Mendoza rial Vin Respitory Rate 2011-09-09 04:55:00 Memori al Vin Diastolic (mm Hg) 2011-09-09 04:55:00 Mem orial Vin Systolic (mm Hg) 2011-09-09 04:55:00 Mendoza rial [place] Heart Rate 2011-09-09 04:55:00 Memorial Vin Temperature Oral (F) 2011-09-09 00:55:00 98.7 F [facility] [place] Weight 2011-09-01 19:59:00 [facility] [place] Height 2011-09-01 19:59:00 154.94 cm Memorial Vin Height 2011-09-01 07:01:00 154.94 cm [facility] [place] Weight 2011-09-01 07:01:00 [facility] Vin Respitory Rate 2011-08-23 18:00:00 Memori al [place] Heart Rate 2011-08-23 18:00:00 [facility] [place] Systolic (mm Hg) 2011-08-23 18:00:00 Mendoza rial [place] Diastolic (mm Hg) 2011-08-23 18:00:00 Mem orial [place] Temperature Oral (F) 2011-08-23 18:00:00 97.7 F [facility] [place] Heart Rate 2011-08-23 14:24:00 [facility] [place] Temperature Oral (F) 2011-08-23 14:24:00 98.2 F [facility] [place] Diastolic (mm Hg) 2011-08-23 14:24:00 Mem orial [place] Systolic (mm Hg) 2011-08-23 14:24:00 Mendoza rial [place] Respitory Rate 2011-08-23 14:24:00 Memori al [place] Systolic (mm Hg) 2011-08-23 11:15:00 Mendoza rial Vin Diastolic (mm Hg) 2011-08-23 11:15:00 Mem orial [place] Temperature Oral (F) 2011-08-23 11:00:00 98.3 F [facility] Heart Rate 2011-08-23 11:00:00 [facility] Respitory Rate 2011-08-22 22:00:00 Brandon aldana [place] Height 2011-08-20 09:12:00 154.94 cm [facility] Weight 2011-08-20 09:12:00 [facility] Height 2011-08-19 20:28:00 154.94 cm [facility] Weight 2011-08-19 20:28:00 [facility] Procedures Procedure Date / Time Performing Clinician Source Performed POC GLUCOSE 2021-06-18 17:00:00 Aurelio Schumacher spital HEPATITIS B SURFACE 2021-06-18 14:07:00 Bill Cooper [facility] ANTIGEN VANCOMYCIN LEVEL, RANDOM 2021-06-18 13:44:00 [facility] HC COMPLETE BLD COUNT 2021-06-18 13:44[facility] DIFF BASIC METABOLIC PANEL 2021-06-18 11:27:00 [facility] ESTIMATED GFR 2021-06-18 11:27:00 Aurelio Schumacher [facility] spital POC GLUCOSE 2021-06-18 08:07:00 Aurelio Schumacher Taoism Ho spital HEMODIALYSIS 2021-06-18 06:16:53 Bill Cooper spital POC GLUCOSE 2021-06-18 01:26:00 RenettaAurelio [facility]ism spital POC GLUCOSE 2021-06-17 21:58:00 Aurelio Schumacher Taoism Ho spital HEMODIALYSIS 2021-06-17 18:25:45 Bill Cooper spital POC GLUCOSE 2021-06-17 17:36:00 RenettaAurelio [facility]ism spital POC GLUCOSE 2021-06-17 13:51:00 Aurelio Schumacher Taoism spital BASIC METABOLIC PANEL 2021-06-17 11:16:00 [facility] HC COMPLETE BLD COUNT 2021-06-17 11:16:00 [facility] W/AUTO DIFF ESTIMATED GFR 2021-06-17 11:16:00 [facility] POC GLUCOSE 2021-06-17 02:50:00 [facility] CONSULT TO OSTOMY CARE 2021-06-17 00:31:48 [facility] NURSE HC COMPLETE BLD COUNT 2021-06-16 23:31:00 [facility] W/AUTO DIFF BASIC METABOLIC PANEL 2021-06-16 23:31:00 [facility] ESTIMATED GFR 2021-06-16 23:31:00 [facility] POC GLUCOSE 2021-06-16 23:19:00 [facility] OR [place] < 1 HOUR 2021-06-16 22:49:00 Mando Diaz [facility] ANAEROBIC CULTURE 2021-06-16 22:36:00 [facility] 2021-06-16 22:36:00 Mando Diaz [facility] AEROBIC CULTURE 2021-06-16 22:36:00 Mando Diaz [facility] GRAM STAIN 2021-06-16 22:36:00 Mando Diaz [facility] NE AN ELECTIVE 2021-06-16 21:30:00 Jocelyne Zepeda [facility] SUPRAGLOTTIC AIRWAY AORTOGRAPHY, POSSIBLE 2021-06-16 21:17:00 Mando Diaz [facility] ANGIOPLASTY [facility] POC , URINE 2021-06-16 20:46:00 [facility] POTASSIUM LEVEL 2021-06-16 17:28:00 Isabell Dickerson marilyn Romero POC GLUCOSE 2021-06-16 11:39:00 [facility] BASIC METABOLIC PANEL 2021-06-16 10:08:00 [facility] HC COMPLETE BLD COUNT 2021-06-16 10:08:00 [facility] W/AUTO DIFF PROTHROMBIN TIME WITH INR 2021-06-16 10:08:00 Char Viramontes [facility] PARTIAL THROMBOPLASTIN 2021-06-16 10:08:00 Char Viramontes [facility] TIME (PTT) TYPE AND SCREEN 2021-06-16 10:08:00 Char Viramontes [facility] ospital ESTIMATED GFR 2021-06-16 10:08:00 [facility] POC GLUCOSE 2021-06-16 01:59:00 [facility] POC GLUCOSE 2021-06-15 22:58:00 [facility] COVID-19 QUALITATIVE 2021-06-15 19:29:00 [facility] Char [facility] RT-PCR POC GLUCOSE 2021-06-15 17:42:00 [facility] HEMODIALYSIS 2021-06-15 16:17:54 Delfino Akbar [facility] POC GLUCOSE 2021-06-15 15:41:00 [facility] POC GLUCOSE 2021-06-15 13:44:00 [facility] POC GLUCOSE 2021-06-15 13:00:00 [facility] ECG 12-LEAD 2021-06-15 12:48:21 Leni Barker [facility] COMPLETE BLD COUNT 2021-06-15 11:42:00 [facility] W/AUTO DIFF BASIC METABOLIC PANEL 2021-06-15 11:42:00 [facility] [facility] ESTIMATED GFR 2021-06-15 11:42:00 [facility] POC GLUCOSE 2021-06-15 01:31:00 [facility] US DUPLEX ARTERIAL LOWER 2021-06-14 21:55:33 [facility] EXTREMITY RIGHT POC GLUCOSE 2021-06-14 21:51:00 [facility] POC GLUCOSE 2021-06-14 17:36:00 [facility] POC GLUCOSE 2021-06-14 13:30:00 [facility] POC GLUCOSE 2021-06-14 13:29:00 [facility] HC COMPLETE BLD COUNT 2021-06-14 10:13:00 [facility] W/AUTO DIFF BASIC METABOLIC PANEL 2021-06-14 10:13:00 [facility] ESTIMATED GFR 2021-06-14 10:13:00 [facility] POC GLUCOSE 2021-06-14 02:45:00 [facility] POC GLUCOSE 2021-06-13 21:47:00 [facility] POC GLUCOSE 2021-06-13 20:46:00 [facility] CBC WITH PLATELET AND 2021-06-13 16:10:00 [facility] DIFFERENTIAL COMPREHENSIVE METABOLIC 2021-06-13 16:10:00 [facility] PANEL ESTIMATED GFR 2021-06-13 16:10:00 [facility] HEMODIALYSIS 2021-06-13 15:26:35 [facility] POC GLUCOSE 2021-06-13 14:30:00 [facility] VANCOMYCIN LEVEL, RANDOM 2021-06-13 10:59:[address] [facility] POC GLUCOSE 2021-06-13 10:40:00 [facility] POC GLUCOSE 2021-06-13 02:28:00 [facility] POC GLUCOSE 2021-06-13 00:16:00 [facility] POC GLUCOSE 2021-06-12 23:31:00 [facility] POC GLUCOSE 2021-06-12 23:14:00 [facility] POC GLUCOSE 2021-06-12 18:19:00 [facility] POC GLUCOSE 2021-06-12 14:37:00 [facility] POC GLUCOSE 2021-06-12 14:01:00 [facility] POC GLUCOSE 2021-06-12 03:03:00 Holden Nagel spital [facility] CT HEAD WO CONTRAST 2021-06-12 00:53:00 oRbe [facility] Ramírez POC GLUCOSE 2021-06-11 18:08:00 Holden Nagel spital Ramírez POC GLUCOSE 2021-06-11 13:39:00 Nagel, Holden Ferrara spital Ramírez HEMODIALYSIS 2021-06-11 12:38:38 Delfino Akbar [facility] POC GLUCOSE 2021-06-11 02:01:00 Robe, Holden Ferrara spital Ramírez POC GLUCOSE 2021-06-10 22:15:00 Holden Nagel spital Ramírez POC GLUCOSE 2021-06-10 17:39:00 Holden Nagel spital Ramírez POC GLUCOSE 2021-06-10 16:05:00 Holden Nagel spital Ramírez TISSUE CULTURE 2021-06-10 15:08:00 Juwan You spital GRAM STAIN 2021-06-10 15:08:00 Juwan You spital ANAEROBIC CULTURE 2021-06-10 15:04:00 Juwan You [facility] FUNGUS CULTURE 2021-06-10 15:04:00 Juwan You spital AEROBIC CULTURE 2021-06-10 15:04:00 Juwan Yuo spital AFB CULTURE 2021-06-10 15:04:00 Juwan You spital GRAM STAIN 2021-06-10 15:04:00 Juwan You spital AFB STAIN 2021-06-10 15:04:00 Juwan You spital NE AN ELECTIVE 2021-06-10 14:26:00 Sofi Roach spital SUPRAGLOTTIC AIRWAY Marquita INCISION AND DRAINAGE, 2021-06-10 14:26:00 [facility] LOWER EXTREMITY HC COMPLETE BLD COUNT 2021-06-10 10:20:00 [facility] W/AUTO DIFF BASIC METABOLIC PANEL 2021-06-10 10:20:00 [facility] PROTHROMBIN TIME WITH INR 2021-06-10 10:20:00 [facility] PARTIAL THROMBOPLASTIN 2021-06-10 10:20:00 [facility] TIME (PTT) TYPE AND SCREEN 2021-06-10 10:20:00 Nagel, Holden Whyte Ho spital Ramírez ESTIMATED GFR 2021-06-10 10:20:00 Pati [place] Isabell Ferrara spital POC GLUCOSE 2021-06-10 03:11:00 Nagel, Holden Whyte Ho spital Ramírez POC GLUCOSE 2021-06-10 01:30:00 Nagel, Holden Whyte Ho spital Ramírez POC GLUCOSE 2021-06-09 22:22:00 Nagel, Holden Whyte Ho spital Ramírez POC GLUCOSE 2021-06-09 13:55:00 Nagel, Holden Whyte Ho spital Ramírez HEMODIALYSIS 2021-06-09 13:20:01 [facility] VANCOMYCIN LEVEL, RANDOM 2021-06-09 11:46:00 Wander Char [facility] POC GLUCOSE 2021-06-09 02:06:00 NagelHolden rodriguez Ho spital Ramírez POC GLUCOSE 2021-06-08 22:23:00 Nagel, Holden Whyte spital Ramírez POC GLUCOSE 2021-06-08 17:53:00 Nagel, Holden [facility] spital Ramírez HC COMPLETE BLD COUNT 2021-06-08 16:06:00 [facility] W/AUTO DIFF POC GLUCOSE 2021-06-08 13:56:00 NagelHolden rodriguez spital Ramírez URINE CULTURE 2021-06-08 03:56:00 Holden Nagel spital Ramírez URINALYSIS SCREEN AND 2021-06-08 03:32:00 [facility] MICROSCOPY, WITH REFLEX TO CULTURE POC GLUCOSE 2021-06-08 01:15:00 Holden Nagel Ho spital Ramírez POC GLUCOSE 2021-06-07 22:07:00 Robe, Holden [facility] spital Ramírez POC GLUCOSE 2021-06-07 18:01:00 Holden Nagel Ho spital Ramírez BASIC METABOLIC PANEL 2021-06-07 14:15:00 [facility] ESTIMATED GFR 2021-06-07 14:15:00 NagelHolden rodriguez Ho spital Ramírez POC GLUCOSE 2021-06-07 13:56:00 Nagel, Holden Whyte Ho spital Ramírez POC GLUCOSE 2021-06-07 02:54:00 Holden Nagel spital Ramírez CT LOWER EXTREMITY W 2021-06-07 01:22:59 [facility] CONTRAST RIGHT POC GLUCOSE 2021-06-06 23:50:00 Holden Nagel Ho spital Ramírez POC GLUCOSE 2021-06-06 17:31:00 Nagel, Holden Whyte Ho spital Ramírez HEMODIALYSIS 2021-06-06 15:05:52 [facility] POC GLUCOSE 2021-06-06 14:03:00 Holden Nagel spital Ramírez HC COMPLETE BLD COUNT 2021-06-06 10:31:00 [facility] W/AUTO DIFF BASIC METABOLIC PANEL 2021-06-06 10:31:00 [facility] ESTIMATED GFR 2021-06-06 10:31:00 NagelHolden rodriguez Ho spital Ramírez POC GLUCOSE 2021-06-06 10:14:00 Holden Nagel [facility]ism [facility] spital Ramírez POC GLUCOSE 2021-06-06 06:26:00 Holden Nagel [facility] spital Ramírez POC GLUCOSE 2021-06-06 02:41:00 Holden Nagel [facility] Ho spital Ramírez POC GLUCOSE 2021-06-05 19:51:00 Holden Nagel Ho spital Ramírez BASIC METABOLIC PANEL 2021-06-05 18:06:00 [facility] HC COMPLETE BLD COUNT 2021-06-05 18:06:00 [facility] W/AUTO DIFF ESTIMATED GFR 2021-06-05 18:06:00 Robe [facility] spital Ramírez POC GLUCOSE 2021-06-05 17:48:00 Robe [facility] spital Ramírez ANAEROBIC CULTURE 2021-06-05 17:10:00 Pati, [facility] ANAEROBIC CULTURE 2021-06-05 16:59:00 Pati, [facility] FUNGUS CULTURE 2021-06-05 16:59:00 Pati, [facility] spital AEROBIC CULTURE 2021-06-05 16:59:00 Pati, [facility] spital AFB CULTURE 2021-06-05 16:59:00 Pati, [facility] spital FUNGUS SMEAR 2021-06-05 16:59:00 Pati, [facility] spital AFB STAIN 2021-06-05 16:59:00 Pati, [facility] spital NE AN ELECTIVE 2021-06-05 16:52:08 Herrera [facility] SUPRAGLOTTIC AIRWAY TISSUE CULTURE 2021-06-05 16:50:00 Pati, [facility] spital GRAM STAIN 2021-06-05 16:50:00 Pati, [facility] spital DEBRIDEMENT, LOWER 2021-06-05 16:16:00 Pati, [facility] EXTREMITY POC GLUCOSE 2021-06-05 13:32:00 Robe [facility] spital Ramírez TROPONIN T 2021-06-05 10:58:00 [facility] ospital ABO AND RH CONFIRMATION BY 2021-06-05 10:54:00 Rachel Brasher [facility] PROTOCOL Vipin BASIC METABOLIC PANEL 2021-06-05 10:53:00 [facility] HC COMPLETE BLD COUNT 2021-06-05 10:53:00 [facility] W/AUTO DIFF ESTIMATED GFR 2021-06-05 10:53:00 [facility] PROTHROMBIN TIME WITH INR 2021-06-05 10:52:00 Char Viramontes [facility] PARTIAL THROMBOPLASTIN 2021-06-05 10:52:00 [facility] TIME (PTT) HCG QUALITATIVE, SERUM 2021-06-05 10:52:00 Myron Fernandes [facility] SCREEN POC GLUCOSE 2021-06-05 09:40:00 Rachel Brasher Ho spital Vipin BLOOD CULTURE, AEROBIC & 2021-06-05 08:27:00 Rachel Brasher [facility] ANAEROBIC Vipin POC GLUCOSE 2021-06-05 07:42:00 Rachel Brasher Ho spital [place]ip[place] POC GLUCOSE 2021-06-05 06:57:00 Rachel Brasher Ho spital [place]ip[place] POC GLUCOSE 2021-06-05 06:10:00 Holden Nagel Ho spital Ramírez BLOOD CULTURE, AEROBIC & 2021-06-05 04:31:00 Rachel Brasher [facility] ANAEROBIC Vipin POC GLUCOSE 2021-06-05 04:04:00 Rachel Brasher Ho spital [place] POC GLUCOSE 2021-06-05 03:51:00 Rachel Brasher Ho spital [place] TYPE AND SCREEN 2021-06-05 03:40:00 Rachel Brasher Ho spital [place] POC GLUCOSE 2021-06-05 03:05:00 Rachel Brasher Ho spital [place] POC GLUCOSE 2021-06-05 02:23:00 Rachel Brasher Ho spital Vipin COVID-19 QUALITATIVE 2021-06-05 02:08:00 [facility] HC COMPLETE BLD COUNT 2021-06-05 01:24:00 [facility] W/AUTO DIFF PROTHROMBIN TIME WITH INR 2021-06-05 01:24:00 [facility] PARTIAL THROMBOPLASTIN 2021-06-05 01:24:00 Sivan Stewart [facility] TIME (PTT) COMPREHENSIVE METABOLIC 2021-06-05 01:24:[address] [facility] PANEL CREATINE KINASE, TOTAL 2021-06-05 01:24:00 Sivan Stweart [facility] ([facility]K) B NATRIURETIC PEPTIDE 2021-06-05 01:24:00 Sivan Stewart [facility] TROPONIN T 2021-06-05 01:24:00 Char Viramontes [facility] ospital ESTIMATED GFR 2021-06-05 01:24:00 [facility] ECG ED PRELIMINARY 2021-06-05 00:31:28 SamantaSivan [facility] INTERPRETATION ECG 12-LEAD 2021-06-05 00:19:17 Rachel Brasher [facility] marilyn [facility] POC GLUCOSE 2021-05-25 18:04:00 [facility] 2021-05-25 14:00:00 Awe, MariluFormerly [facility] CBC HEMOGRAM 2021-05-25 10:12:00 [facility] BASIC METABOLIC PANEL 2021-05-25 10:12:00 Awe, [facility]FR 2021-05-25 10:12:00 [facility] POC [facility]SE 2021-05-25 02:49:00 [facility], [facility] POC GLUCOSE 2021-05-24 23:33:00 [facility]OC [facility]SE 2021-05-24 17:56:00 [facility] POC GLU[facility]SE 2021-05-24 13:59:00 Awe, [facility] CBC HEMOGRAM 2021-05-24 10:12:00 Awe, [facility] BASIC METABOLIC PANEL 2021-05-24 10:12:00 Awe, [facility] ESTIMATED GFR 2021-05-24 10:12:00 Awe, MariluFormerly [facility] POC GLUCOSE 2021-05-24 09:59:00 Awe, MariluFormerly [facility] POC GLUCOSE 2021-05-24 02:26:00 Awe, MariluFormerly [facility] POC GLUCOSE 2021-05-24 00:03:00 Awe, [facility] TRANSFUSE RED BLOOD CELLS 2021-05-23 22:30:00 [facility] TRANSFUSE RED BLOOD CELLS 2021-05-23 21:30:00 [facility] POC GLUCOSE 2021-05-23 19:03:00 Awe, [facility] TYPE AND SCREEN 2021-05-23 14:38:00 [facility] HC COMPLETE BLD COUNT 2021-05-23 14:38:00 [facility] W/AUTO DIFF PREPARE RBC 2021-05-23 14:38:00 [facility] ospital PREPARE PLATELET PHERESIS 2021-05-23 14:38:00 [facility] POC GLUCOSE 2021-05-23 14:35:00 Awe, [facility] HEMODIALYSIS 2021-05-23 13:42:30 [facility] CBC HEMOGRAM 2021-05-23 12:31:00 Awe, [facility] BASIC METABOLIC PANEL 2021-05-23 12:31:00 Awe, [facility] ESTIMATED GFR 2021-05-23 12:31:00 Awe, MariluFormerly [facility] POC GLUCOSE 2021-05-23 11:22:00 Awe, [facility] POC GLUCOSE 2021-05-23 03:30:00 Awe, MariluFormerly [facility] POC GLUCOSE 2021-05-22 23:20:00 [facility]SE 2021-05-22 17:20:00 Awe, MariluFormerly [facility] POC GLUCOSE 2021-05-22 13:27:00 Awe, MariluFormerly [facility] BASIC METABOLIC PANEL 2021-05-22 12:31:00 [facility] MAGNESI[facility] L[facility] 2021-05-22 12:31:00 Nikki Haynes ospigabe Mcginnis CBC HEMOGRAM 2021-05-22 12:31:00 Nikki Haynes ospital Rahel ESTIMATED GFR 2021-05-22 12:31:00 [facility] Rahel POC GLUCOSE 2021-05-22 10:54:00 Awe, [facility] POC GLUCOSE 2021-05-22 07:28:00 Awe, [facility] POC GLUCOSE 2021-05-22 01:11:00 Awe, [facility] HEPATITIS B SURFACE 2021-05-21 21:08:00 [facility] ANTIBODY HEMODIALYSIS 2021-05-21 20:57:40 [facility] POC GLUCOSE 2021-05-21 17:57:00 Awe, [facility] POC GLUCOSE 2021-05-21 13:55:00 Awe, [facility] POC GLUCOSE 2021-05-21 10:41:00 [facility] ZZ[facility]-19 ANTI-SPIKE IGG 2021-05-21 07:43:00 Clyde Olmstead [facility] ANTIBODY TITER Esa BASIC METABOLIC PANEL 2021-05-21 07:43:00 [facility] MAGNESIUM LEVEL 2021-05-21 07:43:00 Nikki Haynes ospital Rahel CBC HEMOGRAM 2021-05-21 07:43:00 Nikki Haynes osgio Mcginnis ZZCOVID-19 SEROLOGY 2021-05-21 07:43:00 Clyde Olmstead [facility] PATIENT SURVEILLANCE Esa ESTIMATED GFR 2021-05-21 07:43:00 Andre Sofia [facility] [place] LACTIC ACID LEVEL 2021-05-21 07:43:00 Leodan Stevenson [facility] POC GLUCOSE 2021-05-21 06:35:00 Tom Barber spital HC COMPLETE BLD COUNT 2021-05-21 02:49:00 [facility] W/AUTO DIFF BASIC METABOLIC PANEL 2021-05-21 02:49:00 [facility] LACTIC ACID LEVEL 2021-05-21 02:49:00 [facility] OSMOLALITY, SERUM 2021-05-21 02:49:00 [facility] BETA HYDROXYBUTYRATE 2021-05-21 02:49:00 [facility] PROCALCITONIN 2021-05-21 02:49:00 [facility] ESTIMATED GFR 2021-05-21 02:49:00 [facility] POC GLUCOSE 2021-05-21 02:34:00 Tom Barber rajeshtal HC COMPLETE BLD COUNT 2021-05-21 00:28:[address] [facility] W/AUTO DIFF POC GLUCOSE 2021-05-20 23:57:00 Tom Barber spital BASIC METABOLIC PANEL 2021-05-20 23:20:00 Andre Sofia [facility] [place] LACTIC ACID LEVEL 2021-05-20 23:20:00 Andre Sofia [facility] [place] ESTIMATED GFR 2021-05-20 23:20:00 [facility] VEN[facility] BLOOD GAS 2021-05-20 23:19:00 Andre Sofia ospital [place] POC GLUCOSE 2021-05-20 23:16:00 Tom Barber spital POC GLUCOSE 2021-05-20 22:16:00 Tom Barber spital POC GLUCOSE 2021-05-20 21:37:00 Tom Barber Ho spital POC GLUCOSE 2021-05-20 20:29:00 Tom Barber Ho spital POC GLUCOSE 2021-05-20 20:26:00 Tom Barber Ho spital POC GLUCOSE 2021-05-20 17:49:00 Tom Barber spital POC GLUCOSE 2021-05-20 17:46:00 Tom Barber spital TRANSFUSE RED BLOOD CELLS 2021-05-20 17:21:00 Angel [facility] PLATELET 2021-05-20 15:52[facility] BASIC METABOLIC PANEL 2021-05-20 15:25:00 Andre Sofia [facility] [place] ESTIMATED GFR 2021-05-20 15:25:00 Andre Sofia spital [place] POC GLUCOSE 2021-05-20 14:48:00 Tom Barber spital HEMODIALYSIS 2021-05-20 11:31:20 [facility] POC GLUCOSE 2021-05-20 10:44:00 Tom Barber spital HEPATITIS B SURFACE 2021-05-20 08:49:00 [facility] ANTIGEN HEPATITIS B SURFACE AB, 2021-05-20 08:49:00 [facility] QUANTITATIVE HC COMPLETE BLD COUNT 2021-05-20 08:25:00 [facility] W/AUTO DIFF BASIC METABOLIC PANEL 2021-05-20 08:25:00 [facility] MAGNESIUM LEVEL 2021-05-20 08:25:00 [facility] ospital PHOSPHORUS LEVEL 2021-05-20 08:25:00 [facility] PROTHROMBIN TIME WITH INR 2021-05-20 08:25:00 [facility] ESTIMATED GFR 2021-05-20 08:25:00 Juwan You spital HEMOGLOBIN A1C 2021-05-20 08:25:00 Nikki Haynes ospital Rahel POC GLUCOSE 2021-05-20 06:34:00 Tom Barber spital ARTERIAL BLOOD GAS 2021-05-20 04:36:00 Graham [facility] ECG 12-LEAD 2021-05-20 03:42:28 Graham [facility] spital PROTHROMBIN TIME WITH INR 2021-05-20 02:54:00 [facility] HC COMPLETE BLD COUNT 2021-05-20 02:54:00 [facility] W/AUTO DIFF BASIC METABOLIC PANEL 2021-05-20 02:54:00 Graham [facility] LACTIC ACID LEVEL 2021-05-20 02:54:00 Graham [facility] VENOUS BLOOD GAS 2021-05-20 02:54:00 Graham [facility] ospital ESTIMATED GFR 2021-05-20 02:54:00 Graham [facility] spital POC GLUCOSE 2021-05-20 02:54:00 Tom Barber spital XR CHEST 1 VW PORTABLE 2021-05-20 02:51:13 Graham [facility] [place] < 1 HOUR 2021-05-20 01:30:15 Juwan You spital TRANSFUSE RED BLOOD CELLS 2021-05-20 00:59:00 Juwan You [facility] NE AN ELECTIVE 2021-05-20 00:53:01 Sukhjinder Medina spital SUPRAGLOTTIC AIRWAY [place]all INCISION AND DRAINAGE, 2021-05-20 00:45:[address] [facility] HEMATOMA HC COMPLETE BLD COUNT 2021-05-19 22:13:00 [facility] W/AUTO DIFF BASIC METABOLIC PANEL 2021-05-19 22:13:00 [facility] PROTHROMBIN TIME WITH INR 2021-05-19 22:13:00 [facility] PARTIAL THROMBOPLASTIN 2021-05-19 22:13:00 [facility] TIME (PTT) MAGNESIUM LEVEL 2021-05-19 22:13:00 Viramontes [facility] ospital ESTIMATED GFR 2021-05-19 22:13:00 Juwan You spital POC GLUCOSE 2021-05-19 22:00:[address] [facility] SURGICAL PATHOLOGY REQUEST 2021-05-19 21:47:00 Errol Luther [facility] POC GLUCOSE 2021-05-19 21:17:00 Juwan You spital ACTIVATED CLOTTING TIME 2021-05-19 19:12:00 Tom Barber [facility] NE AN ELECTIVE 2021-05-19 18:11:04 Sukhjinder Medina spital SUPRAGLOTTIC AIRWAY [place] LOWER EXTREMITY 2021-05-19 17:59:00 Juwan You spital ANGIOGRAM,POSSIBLE ANGIOPLASTY,POSSIBLE STENT XR CHEST 1 VW PORTABLE 2021-05-19 15:47:37 Pati [facility] ESTIMATED GFR 2021-05-19 14:34:00 Juwan You spital POC PANEL 2021-05-19 14:34:00 Juwan You spital TYPE AND SCREEN 2021-05-19 14:05:00 Isabell Dickerson spital Larry Romero PREPARE RBC 2021-05-19 14:05:00 Wander [facility] ospital PREPARE FRESH FROZEN 2021-05-19 14:05:00 [facility] PLASMA PREPARE PLATELET PHERESIS 2021-05-19 14:05:00 [facility] BASIC METABOLIC PANEL 2021-05-19 14:00:[address] [facility] Larry Romero PROTHROMBIN TIME WITH INR 2021-05-19 14:00:00 Jayla [facility] Larry Romero HC COMPLETE BLD COUNT 2021-05-19 14:00:[address] [facility] W/AUTO DIFF Larry Romero ABO AND RH CONFIRMATION BY 2021-05-19 14:00:[address] [facility] PROTOCOL ESTIMATED GFR 2021-05-19 14:00:00 Isabell Dickerson Ho spital Larry Romero COVID-19 QUALITATIVE 2021-05-19 12:40:00 Juwan You [facility] RT-PCR MEDICAL RELEASE/CLEARANCE 2021-05-13 06:01:00 Doctor Unassigned, [facility] FORMS [facility] US DUPLEX ARTERIAL LOWER 2021-05-12 15:21:31 Juwan You [facility] EXTREMITY BILATERAL Emergency department visit 2013-04-15 05:00:00 [facility] for the evaluation and management of a patient, which requires these 3 kamara components within the constraints imposed by the urgency of the patient's clinical condition and/or mental status: A comprehensive history; A comprehensi Injection or Infusion of 2013-04-15 05:00:00 Mem jeison Banuelos Other Therapeutic or Prophylactic Substance Intravenous infusion, 2013-04-15 05:00:00 Brandon Chase hydration; each additional hour (List separately in addition to code for primary procedure) Therapeutic, prophylactic, 2013-04-15 05:00:00 [facility] or diagnostic injection (specify substance or drug); each additional sequential intravenous push of a new substance/drug (List separately in addition to code for primary procedure) Therapeutic, prophylactic, 2013-04-15 05:00:00 [facility] or diagnostic injection (specify substance or drug); intravenous push, single or initial substance/drug Eye procedure Shahid Banuelos Colonoscopy [facility] (esophagogastroduodenoscop y) gastric outlet reduction section Shahid Joseph n Tubal ligation Shahid Banuelos 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 Plan of Care Planned Activity Planned Date Details Comments Source Future Scheduled 2022-06-11 Pneumococcal Vaccine: [facility] Test 02:09:30 Pediatrics (0 to 5 Years) and At-Risk Patients (6 to 64 Years) (1 - PCV) [code = Pneumococcal Vaccine: Pediatrics (0 to 5 Years) and At-Risk Patients (6 to 64 Years) (1 - PCV)] Future Scheduled 2022-06-11 Hepatitis C screening [facility] Test 02:09:30 (procedure) [code = 209855074] Future Scheduled 2022-06-11 [facility] Test 02:09:30 malignant neoplasm of cervix (procedure) [code = 846130360] Future Scheduled 2022-06-11 INFLUENZA VACCINE [facility] Test 02:09:30 [code = INFLUENZA VACCINE] Future Scheduled 2022-06-11 HEPATITIS B VACCINES [facility] Test 02:09:30 (1 of 3 - 3-dose series) [code = HEPATITIS B VACCINES (1 of 3 - 3-dose series)] Future Scheduled 2022-06-11 COVID-19 VACCINE (#1) [facility] Test 02:09:30 [code = COVID-19 VACCINE (#1)] Future Scheduled 2022-06-01 HEPATITIS B VACCINES [facility] Test 16:17:59 (1 of 3 - 3-dose series) [code = HEPATITIS B VACCINES (1 of 3 - 3-dose series)] Future Scheduled 2022-06-01 COVID-19 VACCINE (#1) [facility] Test 16:17:59 [code = COVID-19 VACCINE (#1)] Future Scheduled 2022-06-01 Pneumococcal Vaccine: [facility] Test 16:17:59 Pediatrics (0 to 5 Years) and At-Risk Patients (6 to 64 Years) (1 - PCV) [code = Pneumococcal Vaccine: Pediatrics (0 to 5 Years) and At-Risk Patients (6 to 64 Years) (1 - PCV)] Future Scheduled 2022-06-01 Hepatitis C screening [facility] Test 16:17:59 (procedure) [code = [id number]] Future Scheduled 2022-06-01 [facility] Test 16:17:59 malignant neoplasm of cervix (procedure) [code = 242650485] Future Scheduled 2022-06-01 INFLUENZA VACCINE [facility] Test 16:17:59 [code = INFLUENZA VACCINE] Future Scheduled 2022-04-25 HEPATITIS B VACCINES [facility] Test 12:43:16 (1 of 3 - 3-dose series) [code = HEPATITIS B VACCINES (1 of 3 - 3-dose series)] Future Scheduled 2022-04-25 COVID-19 VACCINE (#1) [facility] Test 12:43:16 [code = COVID-19 VACCINE (#1)] Future Scheduled 2022-04-25 Pneumococcal Vaccine: [facility] Test 12:43:16 Pediatrics (0 to 5 Years) and At-Risk Patients (6 to 64 Years) (1 - PCV) [code = Pneumococcal Vaccine: Pediatrics (0 to 5 Years) and At-Risk Patients (6 to 64 Years) (1 - PCV)] Future Scheduled 2022-04-25 Hepatitis C screening [facility] Test 12:43:16 (procedure) [code = [id number]] Future Scheduled 2022-04-25 Screening for [facility] [facility] [place] Test 12:43:16 malignant neoplasm of cervix (procedure) [code = 366412193] Future Scheduled 2022-04-25 IN[facility]UENZA VACCINE [facility] Test 12:43:16 [code = INFLUENZA VACCINE] Future Scheduled 2022-02-27 HEPATITIS B VACCINES [facility] Test 05:24:42 (1 of 3 - 3-dose series) [code = HEPATITIS B VACCINES (1 of 3 - 3-dose series)] Future Scheduled 2022-02-27 COVID-19 VACCINE (#1) [facility] Test 05:24:42 [code = COVID-19 VACCINE (#1)] Future Scheduled 2022-02-27 Pneumococcal Vaccine: [facility] Test 05:24:42 Pediatrics (0 to 5 Years) and At-Risk Patients (6 to 64 Years) (1 - PCV) [code = Pneumococcal Vaccine: Pediatrics (0 to 5 Years) and At-Risk Patients (6 to 64 Years) (1 - PCV)] Future Scheduled 2022-02-27 Hepatitis C screening [facility] Test 05:24:42 (procedure) [code = 019095368] Future Scheduled 2022-02-27 [facility] Test 05:24:42 malignant neoplasm of cervix (procedure) [code = 861265668] Future Scheduled 2022-02-27 INFLUENZA VACCINE [facility] Test 05:24:42 [code = INFLUENZA VACCINE] Future Scheduled 2022-02-27 HEPATITIS B VACCINES [facility] Test 05:24:42 (1 of 3 - 3-dose series) [code = HEPATITIS B VACCINES (1 of 3 - 3-dose series)] Future Scheduled 2022-02-27 COVID-19 VACCINE (#1) [facility] Test 05:24:42 [code = COVID-19 VACCINE (#1)] Future Scheduled 2022-02-27 Pneumococcal Vaccine: [facility] Test 05:24:42 Pediatrics (0 to 5 Years) and At-Risk Patients (6 to 64 Years) (1 - PCV) [code = Pneumococcal Vaccine: Pediatrics (0 to 5 Years) and At-Risk Patients (6 to 64 Years) (1 - PCV)] Future Scheduled 2022-02-27 Hepatitis C screening [facility] Test 05:24:42 (procedure) [code = 282395830] Future Scheduled 2022-02-27 Screening for [facility] [place] Test 05:24:42 malignant neoplasm of cervix (procedure) [code = 784370946] Future Scheduled 2022-02-27 INFLUENZA VACCINE [facility] Test 05:24:42 [code = INFLUENZA VACCINE] Future Scheduled 2022-02-27 HEPATITIS B VACCINES [facility] Test 05:24:42 (1 of 3 - 3-dose series) [code = HEPATITIS B VACCINES (1 of 3 - 3-dose series)] Future Scheduled 2022-02-27 COVID-19 VACCINE (#1) [facility] Test 05:24:42 [code = COVID-19 VACCINE (#1)] Future Scheduled 2022-02-27 Pneumococcal Vaccine: [facility] Test 05:24:42 Pediatrics (0 to 5 Years) and At-Risk Patients (6 to 64 Years) (1 - PCV) [code = Pneumococcal Vaccine: Pediatrics (0 to 5 Years) and At-Risk Patients (6 to 64 Years) (1 - PCV)] Future Scheduled 2022-02-27 Hepatitis C screening [facility] Test 05:24:42 (procedure) [code = 917483734] Future Scheduled 2022-02-27 Screening for [facility] [place] Test 05:24:42 malignant neoplasm of cervix (procedure) [code = 600410644] Future Scheduled 2022-02-27 INFLUENZA VACCINE [facility] Test 05:24:42 [code = INFLUENZA VACCINE] Future Scheduled 2022-02-27 HEPATITIS B VACCINES [facility] Test 05:24:42 (1 of 3 - 3-dose series) [code = HEPATITIS B VACCINES (1 of 3 - 3-dose series)] Future Scheduled 2022-02-27 COVID-19 VACCINE (#1) [facility] Test 05:24:42 [code = COVID-19 VACCINE (#1)] Future Scheduled 2022-02-27 Pneumococcal Vaccine: [facility] Test 05:24:42 Pediatrics (0 to 5 Years) and At-Risk Patients (6 to 64 Years) (1 - PCV) [code = Pneumococcal Vaccine: Pediatrics (0 to 5 Years) and At-Risk Patients (6 to 64 Years) (1 - PCV)] Future Scheduled 2022-02-27 Hepatitis C screening [facility] Test 05:24:42 (procedure) [code = 743255289] Future Scheduled 2022-02-27 Screening for [facility] [place] Test 05:24:42 malignant neoplasm of cervix (procedure) [code = 521075162] Future Scheduled 2022-02-27 INFLUENZA VACCINE [facility] Test 05:24:42 [code = INFLUENZA VACCINE] Future Scheduled 2022-02-27 HEPATITIS B VACCINES [facility] Test 05:24:42 (1 of 3 - 3-dose series) [code = HEPATITIS B VACCINES (1 of 3 - 3-dose series)] Future Scheduled 2022-02-27 COVID-19 VACCINE (#1) [facility] Test 05:24:42 [code = COVID-19 VACCINE (#1)] Future Scheduled 2022-02-27 Pneumococcal Vaccine: [facility] Test 05:24:42 Pediatrics (0 to 5 Years) and At-Risk Patients (6 to 64 Years) (1 - PCV) [code = Pneumococcal Vaccine: Pediatrics (0 to 5 Years) and At-Risk Patients (6 to 64 Years) (1 - PCV)] Future Scheduled 2022-02-27 Hepatitis C screening [facility] Test 05:24:42 (procedure) [code = 588101257] Future Scheduled 2022-02-27 [facility] Test 05:24:42 malignant neoplasm of cervix (procedure) [code = 021950955] Future Scheduled 2022-02-27 INFLUENZA VACCINE [facility] Test 05:24:42 [code = INFLUENZA VACCINE] Future Scheduled 2022-02-27 HEPATITIS B VACCINES [facility] Test 05:24:42 (1 of 3 - 3-dose series) [code = HEPATITIS B VACCINES (1 of 3 - 3-dose series)] Future Scheduled 2022-02-27 COVID-19 VACCINE (#1) [facility] Test 05:24:42 [code = COVID-19 VACCINE (#1)] Future Scheduled 2022-02-27 Pneumococcal Vaccine: [facility] Test 05:24:42 Pediatrics (0 to 5 Years) and At-Risk Patients (6 to 64 Years) (1 - PCV) [code = Pneumococcal Vaccine: Pediatrics (0 to 5 Years) and At-Risk Patients (6 to 64 Years) (1 - PCV)] Future Scheduled 2022-02-27 Hepatitis C screening [facility] Test 05:24:42 (procedure) [code = 943003405] Future Scheduled 2022-02-27 Screening for [facility] [place] Test 05:24:42 malignant neoplasm of cervix (procedure) [code = 487704511] Future Scheduled 2022-02-27 INFLUENZA VACCINE [facility] Test 05:24:42 [code = INFLUENZA VACCINE] Future Scheduled 2022-02-27 HEPATITIS B VACCINES [facility] Test 05:24:42 (1 of 3 - 3-dose series) [code = HEPATITIS B VACCINES (1 of 3 - 3-dose series)] Future Scheduled 2022-02-27 COVID-19 VACCINE (#1) [facility] Test 05:24:42 [code = COVID-19 VACCINE (#1)] Future Scheduled 2022-02-27 Pneumococcal Vaccine: [facility] Test 05:24:42 Pediatrics (0 to 5 Years) and At-Risk Patients (6 to 64 Years) (1 - PCV) [code = Pneumococcal Vaccine: Pediatrics (0 to 5 Years) and At-Risk Patients (6 to 64 Years) (1 - PCV)] Future Scheduled 2022-02-27 Hepatitis C screening [facility] Test 05:24:42 (procedure) [code = 473825055] Future Scheduled 2022-02-27 Screening for [facility] [place] Test 05:24:42 malignant neoplasm of cervix (procedure) [code = 558938458] Future Scheduled 2022-02-27 INFLUENZA VACCINE Method [facility] Test 05:24:42 [code = INFLUENZA VACCINE] Future Scheduled 2022-02-27 HEPATITIS B VACCINES [facility] Test 05:24:42 (1 of 3 - 3-dose series) [code = HEPATITIS B VACCINES (1 of 3 - 3-dose series)] Future Scheduled 2022-02-27 COVID-19 VACCINE (#1) [facility] Test 05:24:42 [code = COVID-19 VACCINE (#1)] Future Scheduled 2022-02-27 Pneumococcal Vaccine: [facility] Test 05:24:42 Pediatrics (0 to 5 Years) and At-Risk Patients (6 to 64 Years) (1 - PCV) [code = Pneumococcal Vaccine: Pediatrics (0 to 5 Years) and At-Risk Patients (6 to 64 Years) (1 - PCV)] Future Scheduled 2022-02-27 Hepatitis C screening [facility] Test 05:24:42 (procedure) [code = 039154601] Future Scheduled 2022-02-27 [facility] Test 05:24:42 malignant neoplasm of cervix (procedure) [code = 715787156] Future Scheduled 2022-02-27 [facility]FLU[facility]ZA VACCINE [facility] Test 05:24:42 [code = INFLUENZA VACCINE] Future Scheduled 2021-07-22 COVID-19 VACCINE (1) [facility] Test 13:11:04 [code = COVID-19 VACCINE (1)] Future Scheduled 2021-07-22 Hepatitis C screening [facility] Test 13:11:04 (procedure) [code = 409646855] Future Scheduled 2021-07-22 Screening for [facility] [place] Test 13:11:04 malignant neoplasm of cervix (procedure) [code = 128264801] Future Scheduled 2021-07-22 INFLUENZA VACCINE [facility] Test 13:11:04 [code = INFLUENZA VACCINE] Encounters Start End Encounter Admission Attending Care Care Encounter Source Date/Time Date/Time Type Type Clinicians Facility Department ID 2022-04-29 Outpatient [facility] [id number] [place] 09:02:27 [id number] [facility] 2022-04-28 Outpatient [facility] [id number] [place] 12:17:07 [id number] [facility] 2021-12-29 Outpatient [facility] [id number] [place] 11:56:31 [id number] [facility] 2021-12-19 Outpatient [facility] [id number] [place] 14:05:12 [id number] [facility] 2021-12-12 Outpatient [facility] [id number] [place] 12:11:07 [id number] [facility] 2021-12-05 Outpatient [facility] [id number] [place] 20:09:51 [id number] [facility] 2021-10-28 Outpatient [facility] [id number] [place] 17:04:22 [id number] [facility] 2021-07-22 Outpatient nullFlavo [facility] [id number] Memoria 00:10:30 r Medical 05 l [facility] 2021-07-22 Preadmit nullFlavo [id number] Memoria 00:10:30 r [facility] 68 l [place] 2021-07-22 Outpatient nullFlavo [facility] [id number] Memoria 00:10:30 r Medical 06 l [facility] 2021-04-22 Emergency [facility] [id number] Univers 02:13:03 ity [facility] 2021-04-18 Emergency [facility] [id number] Univers 22:32:23 ity [facility] 2021-04-17 Emergency [facility] [id number] Univers 17:46:08 [facility] 2022-04-09 2022-04-09 Outpatient Nodal_J G [facility] [id number] [facility] 00:00:00 00:00:00 1020 Medica l Group 2022-01-02 2022-01-02 Outpatient [facility]T [facility] [id number] -2021 [facility] 03:37:00 03:37:00 0715 Medica l Group 2021-12-15 2021-12-15 Outpatient [facility] [id number] [place] 08:00:00 08:00:00 [facility] 2021-12-02 2021-12-02 Travel 1.2.840.1 1.2.496.425 5131 [id number] Methodi 00:00:00 00:00:[address] 3.430.2.7 0.2.7.3.698 Ho spita .3.995088 084.8 l .8 2021-12-02 2021-12-02 Travel 1.2.840.1 1.2.174.902 2644 [id number] Methodi 00:00:00 00:00:[address] 3.430.2.7 0.2.7.3.698 Ho spita .3.052221 084.8 l .8 2021-11-13 2021-11-13 Transcribe [place], 1.2.840.1 [id number] Methodi 00:00:00 00:00:00 Orders Jose Miguel G. 73600.1.[address] 3.430.2.7 Hospit a .3.927888 l .8 2021-11-13 2021-11-13 Transcribe [place], 1.2.840.1 [id number] Methodi 00:00:00 00:00:00 Orders Jose Miguel G. 75916.1.[address] 3.430.2.7 Hospit a .3.693140 l .8 2021-11-05 2021-11-05 Outpatient Deshazo_T DM DMG [id number] -2021 [facility] 12:00:00 12:00:00 0518 Medica l Group 2021-10-29 2021-10-29 Telephone [facility], 1.2.840.1 [id number] 023 [id number] Methodi 00:00:00 00:00:[address] Mohamed 3.430.2.7 Hospit a .3.462371 l .8 2021-10-29 2021-10-29 Telephone [facility], 1.2.840.1 [id number] Methodi 00:00:00 00:00:[address] Mohamed 3.430.2.7 Hospit a .3.679782 l .8 2021-08-20 2021-08-20 Outpatient Deshazo_T DMG DMG [id number] -2021 [facility] 12:30:00 12:30:00 0302 Medica l Group 2021-07-082021-07-08 Office Ann, 1.2.840.1 [id number] Methodi 13:00:00 14:25:36 Visit Bessie 09709.1.[address] [place] 3.430.2.7 Hosp jo-ann .3.987383 l .8 2021-07-08 2021-07-08 Office Seth, 1.2.840.1 [id number] 2046 Methodi 13:00:00 14:25:36 Visit Bessie 25350.1.[address] [place] 3.430.2.7 Hosp jo-ann .3.719303 l .8 2021-07-08 2021-07-08 Telephone Anthony, 1.2.840.1 [id number] 2099 [id number] Methodi 00:00:00 00:00:[address] 3.430.2.7 Hospit a .3.258017 l .8 2021-07-08 2021-07-08 Travel 1.2.840.1 1.2.130.385 5130 059205 Methodi 00:00:00 00:00:[address] 3.430.2.7 0.2.7.3.698 Ho spita .3.680663 084.8 l .8 2021-07-08 2021-07-08 Telephone Anthony, 1.2.840.1 [id number] 2099 [id number] Methodi 00:00:00 00:00:[address] 3.430.2.7 Hospit a .3.421977 l .8 2021-07-08 2021-07-08 Travel 1.2.840.1 1.2.506.874 5761 129327 Methodi 00:00:00 00:00:[address] 3.430.2.7 0.2.7.3.698 Ho spita .3.410028 084.8 l .8 2021-07-03 2021-07-03 CAV Melany 2.16.840. 2.16.840.1. CLAC [id number] [facility] 19:00:00 20:00:00 Vladimir 1.691834. 841033.4.6. 467 [facility] 4.6.43886 [id number] 2021-07-03 2021-07-03 Telephone Seth, 1.2.840.1 [id number] 2100 [id number] Methodi 00:00:00 00:00:[address] [place] 3.430.2.7 Hosp jo-ann .3.333134 l .8 2021-07-03 2021-07-03 Telephone Seth, 1.2.840.1 [id number] 2099 [id number] Methodi 00:00:00 00:00:[address] [place] 3.430.2.7 Hosp jo-ann .3.080638 l .8 2021-06-24 2021-06-24 Outpatient Deshazo_T [facility] [id number] -2021 [facility] 05:31:00 05:31:00 0104 Medica l Group 2021-06-23 2021-06-23 Telephone Anthony, 1.2.840.1 [id number] 2100 [id number] Methodi 00:00:00 00:00:[address] 3.430.2.7 Hospit a .3.060403 l .8 2021-06-23 2021-06-23 Telephone Anthony, 1.2.840.1 [id number] 2099 [id number] Methodi 00:00:00 00:00:[address] 3.430.2.7 Hospit a .3.987030 l .8 2021-06-04 2021-06-18 [facility] 1.2.840.1 1041 [id number] Methodi 18:20:00 18:13:00 [facility] Rachel Brasher 90443.1.[address] [facility], [facility] 3.430.2.7 Hospita Shanda Shahid .3.287464 l Ullah, Omad .8 2021-06-04 2021-06-18 [facility] Sivan Stewart 1.2.840.1 1041 03502 [id number] Methodi 18:20:00 18:13:00 Encounter Rachel Brasher 97819.1.1 885 [facility] 3.430.2.7 [facility] .3.229501 l Endy, Ompallavi .8 2021-06-16 2021-06-16 Anesthesia [facility], 1.2.840.1 [id number] Methodi 23:59:59 23:59:59 Event Alesia Coelho 41604.1.[address] 3.430.2.7 Hospit a .3.174650 l .8 2021-06-16 2021-06-16 Surgery Diaz, 1.2.840.1 [id number] 4378 Methodi 13:30:00 17:45:00 Mando 92388.1.1 582 [facility] 3.430.2.7 Hosp jo-ann .3.759444 l .8 2021-06-16 2021-06-16 Surgery Diaz, 1.2.840.1 [id number] 5177 Methodi 13:30:00 17:45:00 Mando 66009.1.1 582 [facility] 3.430.2.7 Hosp jo-ann .3.137278 l .8 2021-06-16 2021-06-16 Anesthesia Jose Carlos, 1.2.840.1 [id number] 146 [id number] Methodi 15:19:00 17:19:00 Event Veto 37731.1.1 309 s t V. 3.430.2.7 Hospit a .3.499047 l .8 2021-06-16 2021-06-16 Anesthesia Jose Carlos, 1.2.840.1 [id number] 036 [id number] Methodi 15:19:00 17:19:00 Event Veto 03890.1.1 309 s t V. 3.430.2.7 Hospit a .3.272328 l .8 2021-06-10 2021-06-10 Surgery PatiJuwan 1.2.840.1 [id number] 50228 89511 Methodi 08:00:00 10:30:[address] 3.430.2.7 Hospit a .3.226217 l .8 2021-06-10 2021-06-10 Anesthesia Doc, 1.2.840.1 [id number] 878 [id number] Methodi 08:26:00 09:40:00 Event Sofi 39213.1.[address] Marquita 3.430.2.7 Hosp jo-ann .3.280549 l .8 2021-06-09 2021-06-09 Prep for Robert, 1.2.840.1 [id number] 852 [id number] Methodi 00:00:00 00:00:00 Surgery Gayle 74054.1.[address] 3.430.2.7 Hospit a .3.879517 l .8 2021-06-09 2021-06-09 Prep for Robert, 1.2.840.1 [id number] 012 [id number] Methodi 00:00:00 00:00:00 Surgery Gayle 93379.1.[address] 3.430.2.7 Hospit a .3.938591 l .8 2021-06-05 2021-06-05 Anesthesia Frankie Chowdhury 1.2.840.1 [id number] Methodi 10:16:00 11:41:00 Event Chandler Silverman 72665.1.[address] 3.430.2.7 Hospit a .3.695482 l .8 2021-06-05 2021-06-05 Surgery Juwan You 1.2.840.1 [id number] 64006 Methodi 09:30:00 11:05:[address] 3.430.2.7 Hospit a .3.225831 l .8 2021-06-03 2021-06-03 Prep for Anthony, 1.2.840.1 [id number] 14706 Methodi 00:00:00 00:00:00 Surgery Forrest 33305.1.[address] 3.430.2.7 Hospit a .3.485474 l .8 2021-06-03 2021-06-03 Telephone Ureña, 1.2.840.1 [id number] 168 [id number] Methodi 00:00:00 00:00:00 Crysandria 21198.1.1 218 s t 3.430.2.7 Hospit a .3.444315 l .8 2021-05-28 2021-05-28 Outpatient Adams_R DMG DMG [id number] 021 [facility] 05:00:00 05:00:00 1208 Medica l Group 2021-05-27 2021-05-27 Patient Tam, 1.2.840.1 [id number] 778 [id number] Methodi 00:00:00 00:00:00 Outreach Maria M 37862.1.[address] 3.430.2.7 Hospit a .3.069748 l .8 2021-05-27 2021-05-27 Travel 1.2.840.1 1.2.746.304 2260 471130 Methodi 00:00:00 00:00:[address] 3.430.2.7 0.2.7.3.698 Ho spita .3.103786 084.8 l .8 2021-05-27 2021-05-27 Orders Boles, 1.2.840.1 [id number] Methodi 00:00:00 00:00:00 Only Anila 96430.1.[address] 3.430.2.7 Hospit a .3.727615 l .8 2021-05-26 2021-05-26 Outpatient Adams_R DMG DMG 13620-7 021 [facility] 03:30:00 03:30:00 1206 Medica l Group 2021-05-26 2021-05-26 Telephone Anthony, 1.2.840.1 [id number] 2099 [id number] Methodi 00:00:00 00:00:[address] 3.430.2.7 Hospit a .3.349007 l .8 2021-05-19 2021-05-25 Hospital PatiJuwan 1.2.840.1 [id number] 2100 155019 Methodi 06:00:00 15:59:00 Encounter Tom Barber 27093.1.[address] Marilu Koch 3.430.2.7 Hospita .3.807650 l .8 2021-05-21 2021-05-21 [facility] [id number] 021 [facility] 03:30:00 03:30:00 1201 Medica l Group 2021-05-19 2021-05-19 Anesthesia Adam, 1.2.840.1 [id number] 21 [id number] Methodi 18:45:00 20:31:00 Event Sukhjinder 74662.1.[address] Kendall 3.430.2.7 Hospit a .3.567126 l .8 2021-05-19 2021-05-19 Surgery PatiJuwan 1.2.840.1 [id number] 64927 66970 Methodi 18:50:00 19:55:[address] 3.430.2.7 Hospit a .3.086947 l .8 2021-05-19 2021-05-19 Anesthesia Sukhjinder Medina 1.2.840.1 [id number] Methodi 12:00:00 15:14:00 Event Hanane Ledezma 66172.1.[address] 3.430.2.7 Hospit a .3.756865 l .8 2021-05-19 2021-05-19 Surgery Juwan You 1.2.840.1 [id number] 58749 Methodi 12:05:00 14:45:[address] 3.430.2.7 Hospit a .3.294034 l .8 2021-05-19 2021-05-19 Travel 1.2.840.1 1.2.229.451 0117 308228 Methodi 00:00:00 00:00:[address] 3.430.2.7 0.2.7.3.698 Ho rajeshta .3.257735 084.8 l .8 2021-05-14 2021-05-14 Telephone Corin, 1.2.840.1 [id number] Methodi 00:00:00 00:00:[address] 3.430.2.7 Hospit a .3.088882 l .8 2021-05-14 2021-05-14 Prep for Anthony, 1.2.840.1 [id number] Methodi 00:00:00 00:00:00 Surgery Forrest 81308.1.[address] 3.430.2.7 Hospit a .3.435263 l .8 2021-05-13 2021-05-13 Orders Doctor JOANNA 1.2.840.[address] [place] [address] 00:00:00 00:00:00 Only Unassigned, BEKA 350.1.13.10 ity of [place] [facility] 4.2.7.2.686 Baljinder as 758.6717258 [address] 2021-05-12 2021-05-12 Office Juwan You 1.2.840.1 [id number] 84 Methodi 09:00:00 09:32:[address] 3.430.2.7 Hospit a .3.668751 l .8 2021-05-12 2021-05-12 Outpatient JUWAN YOU [facility] [id number] 8016 [place] 00:00:00 00:00:[address] 2021-05-12 2021-05-12 Telephone Anthony, 1.2.840.1 [id number] Methodi 00:00:00 00:00:[address] 3.430.2.7 Hospit a .3.477070 l .8 2021-05-12 2021-05-12 Travel 1.2.840.1 1.2.679.525 0497 201122 Methodi 00:00:00 00:00:[address] 3.430.2.7 0.2.7.3.698 Ho spita .3.523154 084.8 l .8 2021-05-08 2021-05-08 Orders Anthony, 1.2.840.1 [id number] 6770 Methodi 00:00:00 00:00:00 Only Forrest 65539.1.[address] 3.430.2.7 Hospit a .3.970012 l .8 2021-05-08 2021-05-08 Telephone Ramana, 1.2.840.1 [id number] Methodi 00:00:00 00:00:[address] 3.430.2.7 Hospit a .3.307301 l .8 2021-05-05 2021-05-05 Office Juwan You 1.2.840.1 [id number] 60 Methodi 14:00:00 15:41:[address] 3.430.2.7 Hospit a .3.268562 l .8 2021-05-05 2021-05-05 Travel 1.2.840.1 1.2.077.209 6221 532967 Methodi 00:00:00 00:00:[address] 3.430.2.7 0.2.7.3.698 Ho spita .3.133707 084.8 l .8 2021-05-01 2021-05-01 Telephone Joe, 1.2.840.1 [id number] Methodi 00:00:00 00:00:[address] Diaz-H[facility] 3.430.2.7 Hosp jo-ann .3.387791 l .8 2021-04-08 2021-04-08 Outpatient Sj BHAT [facility] [id number] Univers 09:00:00 09:00:00 MONA low [facility] 2021-03-24 2021-03-24 Transition Misah Garcia 1.2.840.114 878 75383 Univers 00:00:00 00:00:00 of Anny Guzman 350.1.13.10 it y of [place] 4.2.7.2.686 Amisha lombardo 881.4815819 [facility] [address] 2021-03-19 2021-03-21 Hospital Jimena [place] 1.2.840.1 [id number] Univers 08:24:00 23:08:00 Encounter Eze Dias 99178.1.1 ity of [place] Obed Naun 3.104.2.7 [place] .3.463833 Medica l .8 [place] 2021-03-21 2021-03-21 Outpatient [facility] [id number] 021 [facility] 08:01:00 08:01:00 1001 Medica l Group 2021-03-19 2021-03-19 Orders Doctor 1.2.840.8 [id number] Univers 00:00:00 00:00:00 Only Unassigned, 72521.1.1 ity of [place] 3.104.2.7 [place] .3.339075 Medica l .8 Branch 2021-03-19 2021-03-19 Travel 1.2.840.1 1.2.395.554 [id number] Univers 00:00:00 00:00:00 67949.1.1 350.1.13.10 ity of 3.104.2.[place].698 [place] .3.759456 084.8 Medica l .8 Tatamy 2021-01-21 2021-01-29 Inpatient [facility] [id number] Memoria 15:50:00 20:14:00 [facility] [address] [place] [address] 2021-01-21 2021-01-29 Outpatient Aydee [facility] [id number] 10:50:00 15:14:00 Monisha 2021-01-21 2021-01-29 Inpatient U AYDEE [facility] CAR 7512 [facility] 10:50:00 15:14:00 MONSIHA 2021-01-24 2021-01-24 Outpatient DMG DMG [id number] Devoted 08:00:00 08:00:00 0806 Medica l Group 2021-01-21 2021-01-21 Outpatient Aydee [facility] [id number] 10:50:00 10:50:00 Monisha 12 2021-01-03 2021-01-03 Office DOMINIQUE Diane 1.2.840.114 [id number] 07:44:43 09:30:54 Visit Alexandr ALTMAN 350.1.13.58 MEDICAL 9.2.7.2.686 BUILDING [id number] 1 2021-01-03 2021-01-03 Office Benedicto, [facility] 1.2.840.114 [id number] [place] 07:44:43 09:30:54 Visit Alexandr ALTMAN 350.1.13.58 [facility] MEDICAL 9.2.7.2.686 BUILDING [id number] 1 2020-12-26 2020-12-26 Outpatient Sj KIMBLE [facility] [id number] Univers 10:30[facility]00 [facility] 2020-12-25 Outpatient nullFlavo [facility] [id number] Memoria 15:32:00 04:59:00 r Disease 11 l Center Vin 2020-12-24 2020-12-24 Outpatient Wright, [facility] [id number] 10:32:00 23:59:00 Hui Madden 2020-12-24 2020-12-24 Outpatient WRIGHT, [facility] 7511 [facility] 10:32:00 23:59:00 HUI 2020-11-12 2020-11-12 Outpatient Sj GONZALEZ [facility] [id number] Univers 09:00:00 09:00:00 JOSE LUIS [facility] 2020-10-27 2020-10-27 Keyona Kimble [facility] 1.2.840.114 [id number] 00:00:00 00:00:00 (Out) Oz Lehman 350.1.13.10 [place] 4.2.7.2.686 Professio [id number] nal 9 [facility] 2020-10-27 2020-10-27 Letter Lamin WIIMELDA 1.2.840.114 [id number] Univers 00:00:00 00:00:00 (Out) Oz Lehman 350.1.13.10 [place] Profess[place] [id number] Me dical nal 9 [facility] 2020-10-24 2020-10-24 Orders Doctor JOANNA 1.2.840.114 [id number] 00:00:00 00:00:00 Only Unassigned, [place] 350.1.13.10 [place] [facility] 4.2.7.2.686 [id number] [facility] 2020-10-24 2020-10-24 Orders Doctor JOANNA 1.2.840.114 [id number] Univers 00:00:00 00:00:00 Only Unassigned, BEKA 350.1.13.10 ity of [place] [facility] 4.2.7.2.686 Baljinder as [phone] [address] 2020-09-24 2020-09-24 Refill Carlos, [facility] 1.2.840.114 [id number] 00:00:00 00:00:00 Jose Luis Lehman 350.1.13.10 [place] 4.2.7.2.686 Professio [phone] [address] 2020-09-24 2020-09-24 Refill Carlos WIIMELDA 1.2.840.114 [id number] Univers 00:00:00 00:00:00 Jose Luis Lehman 350.1.13.10 i [place] of [place] [phone] Ak dical nal 220 [facility] 2020-09-09 2020-09-09 Patient JARON Sanchez 1.2.840.114 [id number] 00:00:00 00:00:00 Outreach Earl [facility] 350.1.13.10 [facility] 4.2.7.2.686 PAVILLION [phone] 388 2020-09-09 2020-09-09 Patient Daniel WIIMELDA 1.2.840.114 [id number] Univers 00:00:00 00:00:00 Outreach Earl PRIMARY 350.1.13.10 i ty of [place] [phone] Ak dical [address] 2020-08-06 2020-08-06 Outpatient R GONZALEZ, [facility] [id number] Univers 14:30:00 14:30:00 WENTONG ity [facility] 2020-08-05 2020-08-05 [facility] [id number] Univers 13:30:00 13:30:00 DEJA ity [facility] 2020-07-23 2020-07-23 [facility] 1.2.840.114 [id number] [facility] 13:39:08 23:59:00 Encounter Deja PRIMARY 350.1.13.10 ity of [place] [phone] [facility] 807 [address] 2020-07-23 2020-07-23 Office [facility] [id number] [id number] 13:31:20 14:37:36 Visit Deja PRIMARY 350.1.13.10 A CARE 4.2.7.2.686 PAVILLION [phone] [facility] 2020-07-23 2020-07-23 Office [facility] 1.2.470.242 [id number] Univers 13:31:20 14:37:36 Visit Deja PRIMARY 350.1.13.10 it[place] of [place] [phone] [facility] 198 [address] 2020-07-23 2020-07-23 Outpatient [facility] [id number] Univers 13:30:00 13:30:00 DEJA ity [facility] 2020-07-09 2020-07-09 Outpatient R [facility] [id number] Univers 09:00:00 09:00:00 ity [facility] 2020-07-03 2020-07-03 [facility] [id number] Univers 00:00:00 00:00:00 Sendbhavana Lehman 350.1.13.10 it[place] of [place] [phone] [address] 2020-06-27 2020-06-27 Office [facility] 1.2.840.114 [id number] Univers 10:05:43 11:00:00 Visit Oz Lehman 350.1.13.10 ity of [place] [phone] Ak dicvt nal [address] [place] [address] 2020-06-27 2020-06-27 Office [facility] 1.2.840.114 [id number] Univers 10:05:43 11:00:00 Visit Oz LEHMAN 350.1.13.10 [facility] [place] [phone] [facility] NAL [address] [place] [address] 2020-06-27 2020-06-27 Outpatient R [facility] [id number] Univers 09:30:00 11:00:00 SENDIL [facility] 2020-06-27 2020-06-27 Outpatient [facility] [id number] Univers 09:30:00 09:30:00 [facility] 2020-05-28 2020-05-28 Laboratory Pc, Adc Echo Room 1 - [facility] 1 .2.840.114 [id number] Univers 08:01:11 08:48:06 Only Oz Kimble 350.1.13. 10 ity of [place].2.[place] [phone] Ak dicvt nal [address] [place] [address] 2020-05-28 2020-05-28 Outpatient R [facility] [id number] Univers 08:00:00 08:00:00 ity [facility] 2020-05-10 2020-05-10 Nurse Visit, Laila Nurse [facility] 1.2.840.1 [id number] Univers 08:31:07 08:43:46 Visit Oz Kimble 350.1.13. 10 it[place] of [place] [phone] Ak dicvt nal 059 [facility] 2020-05-10 2020-05-10 Outpatient [facility] [id number] Univers 08:30:00 08:30:00 SENDIL ity [facility] 2020-05-07 2020-05-07 Outpatient R [facility] [id number] Univers 08:00:00 08:00:00 ity [facility] 2020-05-01 2020-05-01 Office [facility] 1.2.840.114 [id number] Univers 11:02:55 12:04:48 Visit Jose Luis Lehman 350.1.13.10 i ty of [place]2.7.2.[place] [phone] [facility] 220 [facility] 2020-05-01 2020-05-01 Outpatient R CARLOS [facility] [id number] Univers 10:30:00 10:30:00 [facility] 2020-04-25 2020-04-25 Office Lamin [facility] 1.2.840.114 [id number] Univers 10:07:58 10:48:50 Visit Oz Lehman 350.1.13.10 it[place] of [place] [phone] Ak dicvt nal 9 [facility] 2020-04-25 2020-04-25 Outpatient R [facility] [id number] Univers 10:00:00 10:00:00 SENDIL ity [facility] 2020-04-25 2020-04-25 Orders Doctor MARSHALL 1.2.840.114 [id number] Univers 00:00:00 00:00:00 Only Unassigned, BEKA 350.1.13.10 ity of [place] [facility] 4.2.7.2.686 Baljinder as [phone] [address] 2020-04-05 2020-04-05 Outpatient R KIMBLE, [facility] [id number] Univers 09:30:00 09:30:00 SENDIL itcaron [facility] 2020-04-03 2020-04-03 Manager Research Development 2, Adc Lab [facility] 1.2.840.114 [id number] Univers 13:13:38 13:28:38 Visit Adum, Mona Lehman 350.1.13.10 ity of [place] [phone] Ak dical nal 353 [facility] 2020-04-03 2020-04-03 Outpatient R ADUM, [facility] [id number] Univers 13:00:00 13:00:00 MONA low [facility] 2020-04-02 2020-04-02 Office Adum, [facility] 1.2.840.114 [id number] Univers 09:00:33 09:54:22 Visit Mona Lehman 350.1.13.10 ity of [place] [facility] [phone] Ak dical nal 134 [facility] 2020-04-02 2020-04-02 Outpatient R ADUM, [facility] [id number] Univers 08:30:00 08:30:00 MONA low [facility] 2020-04-02 2020-04-02 Outpatient R ADUM, [facility] [id number] Univers 08:30:00 08:30:00 MONA low [facility] 2020-04-02 2020-04-02 Emergency Khan, [facility] 1.2.840.114 [id number] Univers 00:24:00 01:09:00 Marlin Lehman 350.1.13.10 i ty of [place]2.[place].2.[place] [phone] [facility] 0[address] 2020-04-02 2020-04-02 Orders Doctor JOANNA 1.2.840.114 [id number] Univers 00:00:00 00:00:00 Only Unassigned, BEKA 350.1.13.10 [place] of [place] [facility] 4.2.7.2.686 Baljinder as [phone] [address] 2020-03-16 2020-03-16 Telephone [facility] 1.2.840.114 [id number] Univers 00:00:00 00:00:00 Yury Lehman 350.1.13.10 i ty of [place] [phone] Ak dical nal 134 [facility] 2020-03-08 2020-03-08 Outpatient R [facility] [id number] Univers 11:00:00 11:00:00 LIMA low o f [facility] 2020-03-07 2020-03-07 Telephone [facility] 1.2.840.114 [id number] Univers 00:00:00 00:00:00 Lima Lehman 350.1.13.10 ity of [place] [phone] [facility] 188 [facility] 2020-02-06 2020-02-06 Outpatient R [facility] [id number] Univers 09:30:00 09:30:00 BRANDON low [facility] 2020-02-06 2020-02-06 Office [facility] 1.2.840.114 [id number] Univers 08:57:01 09:24:05 Visit Brandon Lehman 350.1.13.10 i ty of [place] [phone] [facility] 044 [facility] 2020-01-25 2020-01-31 Inpatient 1 Rei Waldron [facility] GPY [id number] 21:31:00 18:15:00 Rei Waldron [facility] 2020-01-24 2020-01-24 Outpatient R TODD [facility] [id number] Univers 09:45:00 09:45:00 HUMAIR itcaron [facility] 2020-01-23 2020-01-23 Outpatient [facility] [id number] Univers 10:30:00 10:30:00 [facility] 2019-12-18 2019-12-18 Outpatient R [facility] [id number] Univers 08:00:00 08:00:00 YISSEL berkowitzy [facility] 2019-12-04 2019-12-04 Outpatient Sj JOHN [facility] [id number] Univers 14:15:00 14:15:00 BRANDON shoy [facility] 2019-11-06 2019-11-06 Telemedicviraj MurphyvirajMAGDY 1.2.840.114 [id number] Univers 07:49:37 08:46:52 ne Visit Yissel Caron 350.1.13.10 ity of [facility] 4.2.7.2.686 Baljinder as BANK [phone] [facility] BLDG. [address] 2019-11-06 2019-11-06 Outpatient Sj RUST [facility] [id number] Univers 08:00:00 08:00:00 YISSEL ity [facility] 2019-10-01 2019-10-01 Emergency [facility] 1.2.856.145 [id number] Univers 15:47:29 19:01:00 Stacie Lehman 350.1.13.10 i ty [facility] 4.2.7.2.686 [facility] [phone] [address] 2019-09-05 2019-09-05 Outpatient Sj JOHN [facility] [id number] Univers 13:30:00 13:30:00 BRANDON ity [facility] 2019-08-28 2019-08-28 Outpatient ZEKE MARTINEZ [facility] [id number] Univers 15:00:00 15:00:00 ity [facility] 2019-02-27 2019-02-27 Telephone [facility] 1.2.840.114 [id number] Univers 00:00:00 00:00:00 Adán T SPECIALTY 350.1.13.10 ity of CARE 4.2.7.2.686 [facility] AT [phone] Ak kolekatya MORALES [address] [place] [address] 2019-02-25 2019-02-25 Telephone [facility] 1.2.840.114 [id number] Univers 00:00:00 00:00:00 Adán T SPECIALTY 350.1.13.10 [place] [phone] Ak jim MORALES 205 [facility] 2019-02-22 2019-02-22 [facility] Oz Aviles 1.2.8 40.114 [id number] Univers 09:19:22 23:59:00 Encounter Outpt-Josy, Ccl Beka 350.1.13.10 ity of Hospital 4.2.7.2.686 Baljinder as [phone] [place] [address] [address] 2019-02-22 2019-02-22 [facility] Oz Aviles 1.2.8 40.114 [id number] Univers 08:00:00 09:18:00 Encounter Outpt-Josy, Ccl [place] 350.1.13.10 ity of Hospital 4.2.7.2.686 Baljinder as [phone] [facility] [address] 2019-02-17 2019-02-17 Office Germán [facility] 1.2.840.114 [id number] Univers 13:09:08 13:54:39 Visit [facility] 350.1.13.10 ity of [place] [phone] [facility] [address] 2019-02-17 2019-02-17 Orders Doctor JOANNA 1.2.840.114 [id number] Univers 00:00:00 00:00:00 Only Unassigned, BEKA 350.1.13.10 [place] of [place] H[facility]PITAL 4.2.7.2.686 Baljinder as [phone] [facility] [address] 2019-01-25 2019-01-25 Telephone Traci Kimble 1.2.676.423 [id number] Univers 00:00:00 00:00:00 Oz Harpery 350.1.13.10 ity of Hospital 4.2.7.2.686 Baljinder as [phone] [facility] [address] 2019-01-25 2019-01-25 Telephone Traci Kimble 1.2.659.539 [id number] Univers 00:00:00 00:00:00 Sendbhavana Harpery 350.1.13.10 ity of Hospital 4.2.7.2.686 Baljinder as [phone] [facility] [address] 2019-01-20 2019-01-20 Office [facility], [facility] 1.2.840.114 [id number] Univers 08:55:54 09:56:43 Visit Oz TicoJose FClaudiaJose F Lehman 350.1.13.10 ity of [place] [phone] Ak dical nal 059 [facility] 2019-01-14 2019-01-15 Emergency Hunderup, TRAUMA 1.2.840.114 [id number] Univers 18:20:35 00:24:00 [facility] 350.1.13.10 it [place] [phone] [facility] 014 [address] 2019-01-13 2019-01-13 Office [facility] 1.2.840.114 [id number] Univers 08:10:44 09:19:41 Visit Lima Lehman 350.1.13.10 ity of [place] [phone] Ak dical nal 205 [facility] 2018-05-24 2018-05-[address] [id number] [facility] 00:00:00 00:00:00 BHJANICE 2016-07-24 2016-07-30 Inpatient nullFlavo [facility] [id number] Memoria 02:04:00 16:20:00 r Vin 10 [facility] 2016-07-23 2016-07-30 Outpatient Yaquelin [facility] [id number] 20:04:00 10:20:00 Luna 10 2016-06-10 2016-06-15 Inpatient nullFlavo [facility] [id number] Memoria 16:02:00 18:23:00 r [place] [address] [place] [address] 2016-06-10 2016-06-15 Outpatient Franck [facility] [id number] 10:02:00 12:23:00 Joe Yan 09 2014-06-26 2014-06-26 nullFlavo [facility] [id number] Memoria 05:25:00 15:14:00 Emergency r Vin [address] [place] [address] 2014-06-25 2014-06-26 Outpatient Ostermayer, 2.16.840. 2.16.840. 1. [id number] 23:25:00 09:14:00 Atul [id number]. [id number] Cem 3.615.0.1 5.0.854 24 8456-10-25 2013-04-15 Emergency nullFlavo [id number] Memoria 21:04:00 01:45:00 [facility] [address] [facility] [place] [place] 2013-04-14 2013-04-15 Outpatient 2.16.840. 2.16.840.1. 4 [id number] Memoria 21:04:00 01:45:00 [id number]. [id number] 07 l 3.615.0.1 5.0.101 Jake n [facility] 2013-04-14 2013-04-15 Outpatient 2.16.840. 2.16.840.1. 4 [id number] Memoria 21:04:00 01:45:00 [id number]. [id number] 07 l 3.615.0.1 5.0.101 Jake n [facility] 2013-04-14 2013-04-15 Outpatient 2.16.840. 2.16.840.1. 4 [id number] Memoria 21:04:00 01:45:00 [id number]. [id number] 07 l 3.615.0.1 5.0.101 Jake n [facility] 2013-04-14 2013-04-15 Outpatient 2.16.840. 2.16.840.1. 4 [id number] Memoria 21:04:00 01:45:00 [id number]. [id number] 07 l 3.615.0.1 5.0.101 Jake n [facility] 2013-04-14 2013-04-15 Outpatient 2.16.840. 2.16.840.1. 4 [id number] Memoria 21:04:00 01:45:00 [id number]. [id number] 07 l 3.615.0.1 5.0.101 Jake n 01 [facility] 2012-03-14 2012-03-14 Emergency nullFlavo [id number] Memoria 16:32:00 22:39:00 r [place] [address] [facility] [place] [place] 2011-11-28 2011-11-30 OU nullFlavo [facility] [id number] Memoria 12:16:00 20:40:00 r Medical 03 [facility] 2011-09-18 2011-09-18 Emergency nullFlavo [facility] [id number] Memoria 08:23:00 13:34:00 r Medical 02 [facility] 2011-09-01 2011-09-09 Inpatient nullFlavo [facility] [id number] Memoria 01:40:00 15:00:00 r Medical 01 [facility] 2011-08-19 2011-08-23 Inpatient nullFlavo [facility] [id number] Memoria 14:25:00 15:28:00 r Medical 00 [facility] Results Test Description Test Time Test Comments Results Result Comments Source AFB culture 2021-07-22 18:13:19 Test Item Value Reference Range Interpretation Comme nts AFB culture isolate No growth after 6 weeks of Specimen InformationSpecimen (test code = 543-9) incubation. Source: DrainageSpecimen Site: Thigh: infected wound right thigh [facility] [place] [id number] 18:13:19 Test Item Value Reference Range Interpretation Comments AFB culture No growth Specimen isolate (test after 6 weeks InformationSp ecimen code = 543-9) of Source: [place] geSpecimen incubation. Site: Thigh: in fected wound right [facility] [id number] 18:13:19 Test Item Value Reference Range Interpretation Comments AFB culture No growth Specimen isolate (test after 6 weeks InformationSp ecimen code = 543-9) of Source: [place] geSpecimen incubation. Site: Thigh: in fected wound right [facility] [id number] 18:13:19 Test Item Value Reference Range Interpretation Comments AFB culture No growth Specimen isolate (test after 6 weeks InformationSp ecimen code = 543-9) of Source: [place] geSpecimen incubation. Site: Thigh: in fected wound right [facility] [id number] 18:13:19 Test Item Value Reference Range Interpretation Comments AFB culture No growth Specimen isolate (test after 6 weeks InformationSp ecimen code = 543-9) of Source: [place] geSpecimen incubation. Site: Thigh: in fected wound right [facility] [id number] 18:13:19 Test Item Value Reference Range Interpretation Comments AFB culture No growth Specimen isolate (test after 6 weeks InformationSp ecimen code = 543-9) of Source: [place] geSpecimen incubation. Site: Thigh: in fected wound right [facility] [id number] 18:13:19 Test Item Value Reference Range Interpretation Comments AFB culture No growth Specimen isolate (test after 6 weeks InformationSp ecimen code = 543-9) of Source: [place] geSpecimen incubation. Site: Thigh: in fected wound right [facility] [id number] 18:13:19 Test Item Value Reference Range Interpretation Comments AFB culture No growth Specimen isolate (test after 6 weeks InformationSp ecimen code = 543-9) of Source: [place] geSpecimen incubation. Site: Thigh: in fected wound right [facility] [id number] 18:13:19 Test Item Value Reference Range Interpretation Comments AFB culture No growth Specimen isolate (test after 6 weeks InformationSp ecimen code = 543-9) of Source: [place] geSpecimen incubation. Site: Thigh: in fected wound right [facility] [id number] 18:13:19 Test Item Value Reference Range Interpretation Comments AFB culture No growth Specimen isolate (test after 6 weeks InformationSp ecimen code = 543-9) of Source: [place] geSpecimen incubation. Site: Thigh: in fected wound right [facility] [id number] 18:13:19 Test Item Value Reference Range Interpretation Comments AFB culture No growth Specimen isolate (test after 6 weeks InformationSp ecimen code = 543-9) of Source: [place] geSpecimen incubation. Site: Thigh: in fected wound right [facility] [id number] 18:15:13 Test Item Value Reference Range Interpretation Comments Fungus culture No growth Specimen isolate (test after 4 weeks InformationSp ecimen code = 1441) of Source: TissueS pecimen incubation. Site: [facility]2022-01-25 18:15:13 Test Item Value Reference Range Interpretation Comments Fungus culture No growth Specimen isolate (test after 4 weeks InformationSp ecimen code = 1441) of Source: TissueS pecimen incubation. Site: [facility]2022-01-25 18:15:13 Test Item Value Reference Range Interpretation Comments Fungus culture No growth Specimen isolate (test after 4 weeks InformationSp ecimen code = 1441) of Source: TissueS pecimen incubation. Site: [facility]2022-01-25 18:15:13 Test Item Value Reference Range Interpretation Comments Fungus culture No growth Specimen isolate (test after 4 weeks InformationSp ecimen code = 1441) of Source: TissueS pecimen incubation. Site: [facility]2022-01-25 18:15:13 Test Item Value Reference Range Interpretation Comments Fungus culture No growth Specimen isolate (test after 4 weeks InformationSp ecimen code = 1441) of Source: TissueS pecimen incubation. Site: [facility]2022-01-25 18:15:13 Test Item Value Reference Range Interpretation Comments Fungus culture No growth Specimen isolate (test after 4 weeks InformationSp ecimen code = 1441) of Source: TissueS pecimen incubation. Site: [facility]2022-01-25 18:15:13 Test Item Value Reference Range Interpretation Comments Fungus culture No growth Specimen isolate (test after 4 weeks InformationSp ecimen code = 1441) of Source: TissueS pecimen incubation. Site: [facility]2022-01-25 18:15:13 Test Item Value Reference Range Interpretation Comments Fungus culture No growth Specimen isolate (test after 4 weeks InformationSp ecimen code = 1441) of Source: TissueS pecimen incubation. Site: [place] [id number] 18:15:13 Test Item Value Reference Range Interpretation Comments Fungus culture No growth Specimen isolate (test after 4 weeks InformationSp ecimen code = 1441) of Source: TissueS pecimen incubation. Site: [place] 455852-01-25 18:15:13 Test Item Value Reference Range Interpretation Comments Fungus culture No growth Specimen isolate (test after 4 weeks InformationSp ecimen code = 1441) of Source: TissueS pecimen incubation. Site: [place] 455852-01-25 18:15:13 Test Item Value Reference Range Interpretation Comments Fungus culture No growth Specimen isolate (test after 4 weeks InformationSp ecimen code = 1441) of Source: TissueS pecimen incubation. Site: [place] 455852-01-25 18:15:13 Test Item Value Reference Range Interpretation Comments Fungus culture No growth Specimen isolate (test after 4 weeks InformationSp ecimen code = 1441) of Source: TissueS pecimen incubation. Site: [place] 156172-01-01 14:31:13 Test Item Value Reference Range Interpretation Comments Anaerobic No anaerobic Specimen culture isolate organisms InformationS pecimen (test code = isolated. Source: TissueS pecimen 552) Site: [place] 156172-01-01 14:31:13 Test Item Value Reference Range Interpretation Comments Anaerobic No anaerobic Specimen culture isolate organisms InformationS pecimen (test code = isolated. Source: TissueS pecimen 552) Site: [place] 156172-01-01 14:31:13 Test Item Value Reference Range Interpretation Comments Anaerobic No anaerobic Specimen culture isolate organisms InformationS pecimen (test code = isolated. Source: TissueS pecimen 552) Site: [place] 156172-01-01 14:31:13 Test Item Value Reference Range Interpretation Comments Anaerobic No anaerobic Specimen culture isolate organisms InformationS pecimen (test code = isolated. Source: TissueS pecimen 552) Site: [place] 156172-01-01 14:31:13 Test Item Value Reference Range Interpretation Comments Anaerobic No anaerobic Specimen culture isolate organisms InformationS pecimen (test code = isolated. Source: TissueS pecimen 552) Site: [place] [address]-01-01 14:31:13 Test Item Value Reference Range Interpretation Comments Anaerobic No anaerobic Specimen culture isolate organisms InformationS pecimen (test code = isolated. Source: TissueS pecimen 552) Site: [facility] [id number] 14:31:13 Test Item Value Reference Range Interpretation Comments Anaerobic No anaerobic Specimen culture isolate organisms InformationS pecimen (test code = isolated. Source: TissueS pecimen 552) Site: [place] 156172-01-01 14:31:13 Test Item Value Reference Range Interpretation Comments Anaerobic No anaerobic Specimen culture isolate organisms InformationS pecimen (test code = isolated. Source: TissueS pecimen 552) Site: [facility]2022-01-01 14:31:13 Test Item Value Reference Range Interpretation Comments Anaerobic No anaerobic Specimen culture isolate organisms InformationS pecimen (test code = isolated. Source: TissueS pecimen 552) Site: [place] 156172-01-01 14:31:13 Test Item Value Reference Range Interpretation Comments Anaerobic No anaerobic Specimen culture isolate organisms InformationS pecimen (test code = isolated. Source: TissueS pecimen 552) Site: [facility]2022-01-01 14:31:13 Test Item Value Reference Range Interpretation Comments Anaerobic No anaerobic Specimen culture isolate organisms InformationS pecimen (test code = isolated. Source: TissueS pecimen 552) Site: [facility]2022-01-01 14:31:13 Test Item Value Reference Range Interpretation Comments Anaerobic No anaerobic Specimen culture isolate organisms InformationS pecimen (test code = isolated. Source: TissueS pecimen 552) Site: [facility] [id number] 16:51:58 Test Item Value Reference Range Interpretation Comments Gram stain No WBC's or Specimen isolate (test organisms seen. Information Specimen code = 1469) Source: TissueS pecimen Site: [facility] [id number] 16:51:58 Test Item Value Reference Range Interpretation Comments Aerobic culture No growth Specimen isolate (test after 3 days. InformationSp ecimen code = 498) Source: TissueS pecimen Site: [facility] HospitalFungus [id number] 16:51:58 Test Item Value Reference Range Interpretation Comments Fungus smear No fungi Specimen (test code = observed. InformationSpec imen Source: 1443) TissueSpecimen Site: [facility] [id number] 16:51:58 Test Item Value Reference Range Interpretation Comments Gram stain No WBC's or Specimen isolate (test organisms seen. Information Specimen code = 1469) Source: [facility] [id number] 16:51:58 Test Item Value Reference Range Interpretation Comments Aerobic culture No growth Specimen isolate (test after 3 days. InformationSp ecimen code = 498) Source: [facility] Site: [facility] [id number] 16:51:58 Test Item Value Reference Range Interpretation Comments Fungus smear No fungi Specimen (test code = observed. InformationSpec imen Source: 1443) TissueSlifepoint healthime Site: [facility] [id number] 16:51:58 Test Item Value Reference Range Interpretation Comments Gram stain No WBC's or Specimen isolate (test organisms seen. Information Specimen code = 1469) Source: [facility] [id number] 16:51:58 Test Item Value Reference Range Interpretation Comments Aerobic culture No growth Specimen isolate (test after 3 days. InformationSp ecimen code = 498) Source: [facility] Site: [facility] [id number] 16:51:58 Test Item Value Reference Range Interpretation Comments Fungus smear No fungi Specimen (test code = observed. InformationSpec imen Source: 1443) [facility] [id number] 16:51:58 Test Item Value Reference Range Interpretation Comments Gram stain No WBC's or Specimen isolate (test organisms seen. Information Specimen code = 1469) Source: [facility] [id number] 16:51:58 Test Item Value Reference Range Interpretation Comments Aerobic culture No growth Specimen isolate (test after 3 days. InformationSp ecimen code = 498) Source: [facility]: [facility] [id number] 16:51:58 Test Item Value Reference Range Interpretation Comments Fungus smear No fungi Specimen (test code = observed. InformationSpec imen Source: 1443) TissueSpecime Site: [facility] [id number] 16:51:58 Test Item Value Reference Range Interpretation Comments Gram stain No WBC's or Specimen isolate (test organisms seen. Information Specimen code = 1469) Source: [facility] Site: [facility] [id number] 16:51:58 Test Item Value Reference Range Interpretation Comments Aerobic culture No growth Specimen isolate (test after 3 days. InformationSp ecimen code = 498) Source: [facility] Site: [facility] [id number] 16:51:58 Test Item Value Reference Range Interpretation Comments Fungus smear No fungi Specimen (test code = observed. InformationSpec imen Source: 1443) TissueSpecime Site: [facility] [id number] 16:51:58 Test Item Value Reference Range Interpretation Comments Gram stain No WBC's or Specimen isolate (test organisms seen. Information Specimen code = 1469) Source: [facility] Site: [facility] [id number] 16:51:58 Test Item Value Reference Range Interpretation Comments Aerobic culture No growth Specimen isolate (test after 3 days. InformationSp ecimen code = 498) Source: [facility] Site: [facility] [id number] 16:51:58 Test Item Value Reference Range Interpretation Comments Fungus smear No fungi Specimen (test code = observed. InformationSpec imen Source: 1443) TissueSpecime Site: [facility] [id number] 16:51:58 Test Item Value Reference Range Interpretation Comments Gram stain No WBC's or Specimen isolate (test organisms seen. Information Specimen code = 1469) Source: [facility] Site: [facility] [id number] 16:51:58 Test Item Value Reference Range Interpretation Comments Aerobic culture No growth Specimen isolate (test after 3 days. InformationSp ecimen code = 498) Source: [facility] Site: [facility] [id number] 16:51:58 Test Item Value Reference Range Interpretation Comments Fungus smear No fungi Specimen (test code = observed. InformationSpec imen Source: 1443) TissueSlifepoint healthime Site: [facility] [id number] 16:51:58 Test Item Value Reference Range Interpretation Comments Gram stain No WBC's or Specimen isolate (test organisms seen. Information Specimen code = 1469) Source: [facility] Site: [facility] [id number] 16:51:58 Test Item Value Reference Range Interpretation Comments Aerobic culture No growth Specimen isolate (test after 3 days. InformationSp ecimen code = 498) Source: [facility] Site: [facility] [id number] 16:51:58 Test Item Value Reference Range Interpretation Comments Fungus smear No fungi Specimen (test code = observed. InformationSpec imen Source: 1443) TissueSpecimen Site: [facility] [id number] 16:51:58 Test Item Value Reference Range Interpretation Comments Gram stain No WBC's or Specimen isolate (test organisms seen. Information Specimen code = 1469) Source: [facility] Site: [facility] [id number] 16:51:58 Test Item Value Reference Range Interpretation Comments Aerobic culture No growth Specimen isolate (test after 3 days. InformationSp ecimen code = 498) Source: [facility] [id number] 16:51:58 Test Item Value Reference Range Interpretation Comments Fungus smear No fungi Specimen (test code = observed. InformationSpec imen Source: 1443) [facility] [id number] 16:51:58 Test Item Value Reference Range Interpretation Comments Gram stain No WBC's or Specimen isolate (test organisms seen. Information Specimen code = 1469) Source: [facility]: [facility] [id number] 16:51:58 Test Item Value Reference Range Interpretation Comments Aerobic culture No growth Specimen isolate (test after 3 days. InformationSp ecimen code = 498) Source: [facility] Site: [facility] HospitalFungus [id number] 16:51:58 Test Item Value Reference Range Interpretation Comments Fungus smear No fungi Specimen (test code = observed. InformationSpec imen Source: 1443) [facility] Site: [facility] [id number] 16:51:58 Test Item Value Reference Range Interpretation Comments Gram stain No WBC's or Specimen isolate (test organisms seen. Information Specimen code = 1469) Source: TissueS pecimen Site: [facility] [id number] 16:51:58 Test Item Value Reference Range Interpretation Comments Aerobic culture No growth Specimen isolate (test after 3 days. InformationSp ecimen code = 498) Source: TissueS pecimen Site: [facility] [id number] 16:51:58 Test Item Value Reference Range Interpretation Comments Fungus smear No fungi Specimen (test code = observed. InformationSpec imen Source: 1443) TissueSpecimen Site: [facility] [id number] 16:51:58 Test Item Value Reference Range Interpretation Comments Gram stain No WBC's or Specimen isolate (test organisms seen. Information Specimen code = 1469) Source: TissueS [facility] Site: [facility] [id number] 16:51:58 Test Item Value Reference Range Interpretation Comments Aerobic culture No growth Specimen isolate (test after 3 days. InformationSp ecimen code = 498) Source: TissueS [facility] Site: [facility] [id number] 16:51:58 Test Item Value Reference Range Interpretation Comments Fungus smear No fungi Specimen (test code = observed. InformationSpec imen Source: 1443) TissueSpecimen Site: [facility] [id number] 17:00:57 Test Item Value Reference Range Interpretation Comments POC glucose (test code 79 mg/dL 65-99 Opera tor Name: Eboni = 62520-6) AmiDevice ID: [id number] [facility] [id number] 17:00:57 Test Item Value Reference Range Interpretation Comments POC glucose (test code 79 mg/dL 65-99 Opera tor Name: Eboni = 50451-3) AmiDevice ID: [id number] [facility] [id number] 17:00:57 Test Item Value Reference Range Interpretation Comments POC glucose (test code 79 mg/dL 65-99 Opera tor Name: Eboni = 28919-4) AmiDevice ID: [id number] [facility] [id number] 17:00:57 Test Item Value Reference Range Interpretation Comments POC glucose (test code 79 mg/dL 65-99 Opera tor Name: Eboni = 20344-3) AmiDevice ID: [id number] [facility] [id number] 17:00:57 Test Item Value Reference Range Interpretation Comments POC glucose (test code 79 mg/dL 65-99 Opera tor Name: Eboni = 92608-5) AmiDevice ID: [id number] [facility] [id number] 17:00:57 Test Item Value Reference Range Interpretation Comments POC glucose (test code 79 mg/dL 65-99 Opera tor Name: Eboni = 63687-6) AmiDevice ID: [id number] [facility] [id number] 17:00:57 Test Item Value Reference Range Interpretation Comments POC glucose (test code 79 mg/dL 65-99 Opera tor Name: Eboni = 51847-0) AmiDevice ID: [id number] [facility] [id number] 17:00:57 Test Item Value Reference Range Interpretation Comments POC glucose (test code 79 mg/dL 65-99 Opera tor Name: Eboni = 20529-2) AmiDevice ID: [id number] [facility] [id number] 17:00:57 Test Item Value Reference Range Interpretation Comments POC glucose (test code 79 mg/dL 65-99 Opera tor Name: Eboni = 32148-4) AmiDevice ID: [id number] [facility] [id number] 17:00:57 Test Item Value Reference Range Interpretation Comments POC glucose (test code 79 mg/dL 65-99 Opera tor Name: Eboni = 57078-3) AmiDevice ID: [id number] [facility] [id number] 17:00:57 Test Item Value Reference Range Interpretation Comments POC glucose (test code 79 mg/dL 65-99 Opera tor Name: Eboni = 70273-8) AmiDevice ID: [id number] [facility] [id number] 17:00:57 Test Item Value Reference Range Interpretation Comments POC glucose (test code 79 mg/dL 65-99 Opera tor Name: Eboni = 77902-1) AmiDevice ID: [id number] [facility] , [id number] 20:46:00 Test Item Value Reference Range Interpretation Comments test urine, POC (test Negative code = 8851513) Internal QC (test code = 257) QC acceptable [facility] , vnnni5655-13-21 20:46:00 Test Item Value Reference Range Interpretation Comments test urine, POC (test Negative code = 6406291) Internal QC (test code = 257) QC [facility] , [id number] 20:46:00 Test Item Value Reference Range Interpretation Comments test urine, POC (test Negative code = 1438176) Internal QC (test code = 257) QC [facility] , lmxrl9610-08-47 20:46:00 Test Item Value Reference Range Interpretation Comments test urine, POC (test Negative code = 8468185) Internal QC (test code = 257) QC acceptable [facility] , ciphm9779-79-08 20:46:00 Test Item Value Reference Range Interpretation Comments test urine, POC (test Negative code = 6339715) Internal QC (test code = 257) QC acceptable [facility] , [id number] 20:46:00 Test Item Value Reference Range Interpretation Comments test urine, POC (test Negative code = 7802957) Internal QC (test code = 257) QC acceptable [facility] , [id number] 20:46:00 Test Item Value Reference Range Interpretation Comments test urine, POC (test Negative code = 7672418) Internal QC (test code = 257) QC acceptable [facility] , [id number] 20:46:00 Test Item Value Reference Range Interpretation Comments test urine, POC (test Negative code = 8390232) Internal QC (test code = 257) QC acceptable [facility] , wyyur5516-86-18 20:46:00 Test Item Value Reference Range Interpretation Comments test urine, POC (test Negative code = 0512904) Internal QC (test code = 257) QC acceptable [facility] , [id number] 20:46:00 Test Item Value Reference Range Interpretation Comments test urine, POC (test Negative code = 0255015) Internal QC (test code = 257) QC acceptable [facility] , [id number] 20:46:00 Test Item Value Reference Range Interpretation Comments test urine, POC (test Negative code = 2322614) Internal QC (test code = 257) QC acceptable [facility] , [id number] 20:46:00 Test Item Value Reference Range Interpretation Comments test urine, POC (test Negative code = 2543108) Internal QC (test code = 257) QC acceptable [address]2021-12-27 17:27:33 Test Item Value Reference Range Interpretation Comments Ventricular rate (test code = 253) Atrial rate (test code = 255) NE interval (test code = 266) QRSD interval [...] of 04-JUN-2021 18:19,-No significant change was found- [address]2021-12-27 17:27:33 Test Item Value Reference Range Interpretation Comments Ventricular rate (test code = 253) Atrial rate (test code = 255) NE interval (test code = 266) QRSD interval [...] of 04-JUN-2021 18:19,-No significant change was found- [address]2021-12-27 17:27:33 Test Item Value Reference Range Interpretation Comments Ventricular rate (test code = 253) Atrial rate (test code = 255) NE interval (test code = 266) QRSD interval [...] of 04-JUN-2021 18:19,-No significant change was found- [address]2021-12-27 17:27:33 Test Item Value Reference Range Interpretation Comments Ventricular rate (test code = 253) Atrial rate (test code = 255) NE interval (test code = 266) QRSD interval [...] of 04-JUN-2021 18:19,-No significant change was found- [address]2021-12-27 17:27:33 Test Item Value Reference Range Interpretation Comments Ventricular rate (test code = 253) Atrial rate (test code = 255) NE interval (test code = 266) QRSD interval [...] of 04-JUN-2021 18:19,-No significant change was found- [address]2021-12-27 17:27:33 Test Item Value Reference Range Interpretation Comments Ventricular rate (test code = 253) Atrial rate (test code = 255) NE interval (test code = 266) QRSD interval [...] of 04-JUN-2021 18:19,-No significant change was found- [address]2021-12-27 17:27:33 Test Item Value Reference Range Interpretation Comments Ventricular rate (test code = 253) Atrial rate (test code = 255) NE interval (test code = 266) QRSD interval [...] of 04-JUN-2021 18:19,-No significant change was found- [address]2021-12-27 17:27:33 Test Item Value Reference Range Interpretation Comments Ventricular rate (test code = 253) Atrial rate (test code = 255) NE interval (test code = 266) QRSD interval [...] of 04-JUN-2021 18:19,-No significant change was found- [address]2021-12-27 17:27:33 Test Item Value Reference Range Interpretation Comments Ventricular rate (test code = 253) Atrial rate (test code = 255) NE interval (test code = 266) QRSD interval [...] of 04-JUN-2021 18:19,-No significant change was found- [address]2021-12-27 17:27:33 Test Item Value Reference Range Interpretation Comments Ventricular rate (test code = 253) Atrial rate (test code = 255) NE interval (test code = 266) QRSD interval [...] of 04-JUN-2021 18:19,-No significant change was found- [address]2021-12-27 17:27:33 Test Item Value Reference Range Interpretation Comments Ventricular rate (test code = 253) Atrial rate (test code = 255) NE interval (test code = 266) QRSD interval [...] of 04-JUN-2021 18:19,-No significant change was found- [address]2021-12-27 17:27:33 Test Item Value Reference Range Interpretation Comments Ventricular rate (test code = 253) Atrial rate (test code = 255) NE interval (test code = 266) QRSD interval [...] of 04-JUN-2021 18:19,-No significant change was found- [facility] and [id number] 11:06:00 Test Item Value Reference Range Interpretation Comments ABO grouping (test code = 883-9) B Rh type (test code = 42450-6) POS Antibody screen (gel) (test code = NEG 890-4) [facility] [id number] 11:06:00 Test Item Value Reference Range Interpretation Comments ABO grouping (test code = 883-9) B Rh type (test code = 32380-7) POS Antibody screen (gel) (test code = NEG 890-4) [facility] and iupreq5096-66-86 11:06:00 Test Item Value Reference Range Interpretation Comments ABO grouping (test code = 883-9) B Rh type (test code = 93102-6) POS Antibody screen (gel) (test code = NEG 890-4) [facility] fjrshh7534-76-16 11:06:00 Test Item Value Reference Range Interpretation Comments ABO grouping (test code = 883-9) B Rh type (test code = 20598-4) POS Antibody screen (gel) (test code = NEG 890-4) [facility] and [id number] 11:06:00 Test Item Value Reference Range Interpretation Comments ABO grouping (test code = 883-9) B Rh type (test code = 35134-8) POS Antibody screen (gel) (test code = NEG 890-4) [facility] shijhz0428-97-92 11:06:00 Test Item Value Reference Range Interpretation Comments ABO grouping (test code = 883-9) B Rh type (test code = 79580-9) POS Antibody screen (gel) (test code = NEG 890-4) [facility] [id number] 11:06:00 Test Item Value Reference Range Interpretation Comments ABO grouping (test code = 883-9) B Rh type (test code = 09740-2) POS Antibody screen (gel) (test code = NEG 890-4) [facility] and [id number] 11:06:00 Test Item Value Reference Range Interpretation Comments ABO grouping (test code = 883-9) B Rh type (test code = 62074-4) POS Antibody screen (gel) (test code = NEG 890-4) [facility] amfkjb6322-57-10 11:06:00 Test Item Value Reference Range Interpretation Comments ABO grouping (test code = 883-9) B Rh type (test code = 19258-8) POS Antibody screen (gel) (test code = NEG 890-4) [facility] rchqck6307-00-13 11:06:00 Test Item Value Reference Range Interpretation Comments ABO grouping (test code = 883-9) B Rh type (test code = 85875-7) POS Antibody screen (gel) (test code = NEG 890-4) [facility] [id number] 11:06:00 Test Item Value Reference Range Interpretation Comments ABO grouping (test code = 883-9) B Rh type (test code = 53209-5) POS Antibody screen (gel) (test code = NEG 890-4) [facility] maqhfn3821-13-01 11:06:00 Test Item Value Reference Range Interpretation Comments ABO grouping (test code = 883-9) B Rh type (test code = 16049-4) POS Antibody screen (gel) (test code = NEG 890-4) [facility] [Presence] in Respiratory specimen by EMANUEL with probe ikeaywpmb5168-87-69 19:37:44 Test Item Value Reference Range Interpretation Comments SARS-CoV-2 (COVID-19) RNA Not detected Not-Detected [Presence] in Respiratory specimen by EMANUEL with probe detection (test code = 49197-7) 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 (test code = 56257-3) Whether the patient has symptoms related to condition of interest (test code = 99836-4) Patient was hospitalized because of this condition (test code = 29994-4) Whether the patient was admitted to intensive care unit (ICU) for condition of interest (test code = 91631-6) Whether patient resides in a congregate care setting (test code = 27259-8) [facility]2021-12-24 20:18:46 Test Item Value Reference Range Interpretation Comments Tissue culture No growth Specimen isolate (test after 3 days. InformationSp ecimen code = 36662-9) Source: Gino uBrandieimen Site: Thigh: in fected right thigh wou [facility]2021-12-24 20:18:46 Test Item Value Reference Range Interpretation Comments Tissue culture No growth Specimen isolate (test after 3 days. InformationSp ecimen code = 85945-1) Source: Gino uKalecimen Site: [facility] 20:18:46 Test Item Value Reference Range Interpretation Comments Tissue culture No growth Specimen isolate (test after 3 days. InformationSp ecimen code = 40611-4) Source: Gion uKalecimen Site: Thigh: in fected right thigh wou [facility]2021-12-24 20:18:46 Test Item Value Reference Range Interpretation Comments Tissue culture No growth Specimen isolate (test after 3 days. InformationSp ecimen code = 29198-5) Source: Gino uKalecimen Site: Thigh: in fected right thigh wou [facility]2021-12-24 20:18:46 Test Item Value Reference Range Interpretation Comments Tissue culture No growth Specimen isolate (test after 3 days. InformationSp ecimen code = 02073-6) Source: Tiss uKalecimen Site: [facility] 20:18:46 Test Item Value Reference Range Interpretation Comments Tissue culture No growth Specimen isolate (test after 3 days. InformationSp ecimen code = 28098-2) Source: Tiss ueSpecimen Site: Thigh: in fected right thigh [facility]2021-12-24 20:18:46 Test Item Value Reference Range Interpretation Comments Tissue culture No growth Specimen isolate (test after 3 days. InformationSp ecimen code = 00498-2) Source: Tiss ueSpecimen Site: [facility] [id number] 20:18:46 Test Item Value Reference Range Interpretation Comments Tissue culture No growth Specimen isolate (test after 3 days. InformationSp ecimen code = 65885-5) Source: Tiss ueSpecimen Site: Thigh: in fected right thigh wou [facility] ikfvfyp4154-59-34 20:18:46 Test Item Value Reference Range Interpretation Comments Tissue culture No growth Specimen isolate (test after 3 days. InformationSp ecimen code = 55566-4) Source: Tiss ueSpecimen Site: Thigh: in fected right thigh wou [facility] kiqiaed3280-01-70 20:18:46 Test Item Value Reference Range Interpretation Comments Tissue culture No growth Specimen isolate (test after 3 days. InformationSp ecimen code = 51397-6) Source: Tiss ueSpecimen Site: Thigh: in fected right thigh wou [facility] tvzovzg5888-70-27 20:18:46 Test Item Value Reference Range Interpretation Comments Tissue culture No growth Specimen isolate (test after 3 days. InformationSp ecimen code = 21728-3) Source: Tiss ueSpecimen Site: Thigh: in fected right [facility] msfso3142-87-04 20:24:42 Test Item Value Reference Range Interpretation Comments AFB stain No acid fast Specimen (test code = bacilli (AFB) InformationSpe cimen 676-7) seen. Source: Drainag eSpecimen Site: Thigh: in fected wound right [facility] [id number] 20:24:42 Test Item Value Reference Range Interpretation Comments AFB stain No acid fast Specimen (test code = bacilli (AFB) InformationSpe cimen 676-7) seen. Source: Drainag eSpecimen Site: Thigh: in fected wound right [facility] [id number] 20:24:42 Test Item Value Reference Range Interpretation Comments AFB stain No acid fast Specimen (test code = bacilli (AFB) InformationSpe cimen 676-7) seen. Source: Drainag eSpecimen Site: Thigh: in fected wound right [facility] [id number] 20:24:42 Test Item Value Reference Range Interpretation Comments AFB stain No acid fast Specimen (test code = bacilli (AFB) InformationSpe cimen 676-7) seen. Source: Drainag eSpecimen Site: Thigh: in fected wound right [facility] [id number] 20:24:42 Test Item Value Reference Range Interpretation Comments AFB stain No acid fast Specimen (test code = bacilli (AFB) InformationSpe cimen 676-7) seen. Source: Drainag eSpecimen Site: Thigh: [facility] [id number] 20:24:42 Test Item Value Reference Range Interpretation Comments AFB stain No acid fast Specimen (test code = bacilli (AFB) InformationSpe cimen 676-7) seen. Source: Drainag eSpecimen Site: Thigh: in fected wound right [facility] [id number] 20:24:42 Test Item Value Reference Range Interpretation Comments AFB stain No acid fast Specimen (test code = bacilli (AFB) InformationSpe cimen 676-7) seen. Source: Drainag eSpecimen Site: Thigh: [facility]ected [facility] [id number] 20:24:42 Test Item Value Reference Range Interpretation Comments AFB stain No acid fast Specimen (test code = bacilli (AFB) InformationSpe cimen 676-7) seen. Source: Drainag eSpecimen Site: Thigh: in fected wound right [facility] [id number] 20:24:42 Test Item Value Reference Range Interpretation Comments AFB stain No acid fast Specimen (test code = bacilli (AFB) InformationSpe cimen 676-7) seen. Source: Drainag eSpecimen Site: Thigh: [facility]ect[facility] [id number] 20:24:42 Test Item Value Reference Range Interpretation Comments AFB stain No acid fast Specimen (test code = bacilli (AFB) InformationSpe cimen 676-7) seen. Source: Drainag eSpecimen Site: Thigh: [facility]ected [facility] [id number] 20:24:42 Test Item Value Reference Range Interpretation Comments AFB stain No acid fast Specimen (test code = bacilli (AFB) InformationSpe cimen 676-7) seen. Source: Drainag eSpecimen Site: Thigh: in fected wound right [facility] [id number] 09:49:57 Test Item Value Reference Range Interpretation Comments Urine culture No growth Specimen isolate (test after 24 InformationSpe cimen code = 27711-3) hours Source: Urin eSpecimen Site: [facility]2021-12-20 09:49:57 Test Item Value Reference Range Interpretation Comments Urine culture No growth Specimen isolate (test after 24 InformationSpe cimen code = 27403-3) hours Source: Urin eSpecimen Site: [facility] [id number] 09:49:57 Test Item Value Reference Range Interpretation Comments Urine culture No growth Specimen isolate (test after 24 InformationSpe cimen code = 93343-9) hours Source: Urin eSpecimen Site: Clean [facility]2021-12-20 09:49:57 Test Item Value Reference Range Interpretation Comments Urine culture No growth Specimen isolate (test after 24 InformationSpe cimen code = 17179-4) hours Source: Urin eSpecimen Site: [facility]2021-12-20 09:49:57 Test Item Value Reference Range Interpretation Comments Urine culture No growth Specimen isolate (test after 24 InformationSpe cimen code = 15460-7) hours Source: Urin eSpecimen Site: [facility] [id number] 09:49:57 Test Item Value Reference Range Interpretation Comments Urine culture No growth Specimen isolate (test after 24 InformationSpe cimen code = 33621-8) hours Source: Urin eSpecimen Site: [facility]2021-12-20 09:49:57 Test Item Value Reference Range Interpretation Comments Urine culture No growth Specimen isolate (test after 24 InformationSpe cimen code = 49316-8) hours Source: Urin eSpecimen Site: [facility] [id number] 09:49:57 Test Item Value Reference Range Interpretation Comments Urine culture No growth Specimen isolate (test after 24 InformationSpe cimen code = 47950-4) hours Source: [facility] Site: [facility] waxocei1759-99-07 09:49:57 Test Item Value Reference Range Interpretation Comments Urine culture No growth Specimen isolate (test after 24 InformationSpe cimen code = 79676-2) hours Source: [facility] Site: [facility] vjhusmk7969-70-69 09:49:57 Test Item Value Reference Range Interpretation Comments Urine culture No growth Specimen isolate (test after 24 InformationSpe cimen code = 95077-0) hours Source: [facility] Site: [facility] [id number] 09:49:57 Test Item Value Reference Range Interpretation Comments Urine culture No growth Specimen isolate (test after 24 InformationSpe cimen code = 78134-1) hours Source: [facility] Site: [facility] smqosiykiqpb9650-10-29 12:52:00 Test Item Value Reference Range Interpretation Comments ABO grouping (test code = 883-9) B Rh type (test code = 98013-2) POS [facility] azistxbnwglw2706-43-14 12:52:00 Test Item Value Reference Range Interpretation Comments ABO grouping (test code = 883-9) B Rh type (test code = 19945-6) [facility] qmtsrhriwvxg9382-56-47 12:52:00 Test Item Value Reference Range Interpretation Comments ABO grouping (test code = 883-9) B Rh type (test code = 30890-3) [facility] xflutqcitxhs8357-47-35 12:52:00 Test Item Value Reference Range Interpretation Comments ABO grouping (test code = 883-9) B Rh type (test code = 92538-3) [facility] dcrtwtzmkcwe4041-09-21 12:52:00 Test Item Value Reference Range Interpretation Comments ABO grouping (test code = 883-9) B Rh type (test code = 13670-6) [facility] nfgignhfxbns6623-16-11 12:52:00 Test Item Value Reference Range Interpretation Comments ABO grouping (test code = 883-9) B Rh type (test code = 47402-4) [facility] tsfjkwwvrhio8128-08-33 12:52:00 Test Item Value Reference Range Interpretation Comments ABO grouping (test code = 883-9) B Rh type (test code = 94330-6) [facility] and Rh uxvsqauwbdfs3260-96-47 12:52:00 Test Item Value Reference Range Interpretation Comments ABO grouping (test code = 883-9) B Rh type (test code = 99762-4) [facility] and Rh rvsxpsartwrq5379-53-84 12:52:00 Test Item Value Reference Range Interpretation Comments ABO grouping (test code = 883-9) B Rh type (test code = 62046-5) [facility] and Rh vysoturveots8053-39-09 12:52:00 Test Item Value Reference Range Interpretation Comments ABO grouping (test code = 883-9) B Rh type (test code = 21798-7) [facility] and Rh dgshfcjyjemb0831-20-05 12:52:00 Test Item Value Reference Range Interpretation Comments ABO grouping (test code = 883-9) B Rh type (test code = 15415-9) [facility] [Presence] in Respiratory specimen by EMANUEL with probe vevvkygdi1791-57-18 03:04:32 Test Item Value Reference Range Interpretation Comments SARS-CoV-2 (COVID-19) RNA Not detected Not-Detected [Presence] in Respiratory specimen by EMANUEL with probe detection (test code = 97238-2) 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 (test code = 66132-9) Whether the patient has symptoms related to condition of interest (test code = 13606-3) Patient was hospitalized because of this condition (test code = 43113-8) Whether the patient was admitted to intensive care unit (ICU) for condition of interest (test code = 18532-4) Whether patient resides in a congregate care setting (test code = 64395-0) [facility] RBC, 1 [id number] 22:22:00 Test Item Value Reference Range Interpretation Comments Product name (test code Red Blood Cells -1, = 25) Leukored Unit number (test code = [id number]) Product code (test code D1283F86 = 3092) Dispense status (test Transfused code = 24) Blood expiration date (test code = 302) Blood type code (test code = 308) Blood type (test code = B POSITIVE 1314) Compatibility (test code Compatible = 6400) [facility] 1 Iwswc7993-53-69 22:22:00 Test Item Value Reference Range Interpretation Comments Product name (test code Red Blood Cells -1, = 25) Leukored Unit number (test code = [id number]) Product code (test code N7092H72 = 3092) Dispense status (test Transfused code = 24) Blood expiration date (test code = 302) Blood type code (test code = 308) Blood type (test code = B POSITIVE 1314) Compatibility (test code Compatible = 6400) [facility] [id number] 22:22:00 Test Item Value Reference Range Interpretation Comments Product name (test code Red Blood Cells -1, = 25) Leukored Unit number (test code = [id number] 0605476) Product code (test code X2719G12 = 3092) Dispense status (test Transfused code = 24) Blood expiration date (test code = 302) Blood type code (test code = 308) Blood type (test code = B POSITIVE 1314) Compatibility (test code Compatible = 6400) [facility], 1 Irvto5342-42-51 22:22:00 Test Item Value Reference Range Interpretation Comments Product name (test code Red Blood Cells -1, = 25) Leukored Unit number (test code = [id number] 1804066) Product code (test code T5258S67 = 3092) Dispense status (test Transfused code = 24) Blood expiration date (test code = 302) Blood type code (test code = 308) Blood type (test code = B POSITIVE 1314) Compatibility (test code Compatible = 6400) [facility], 1 Kpvps2534-46-59 22:22:00 Test Item Value Reference Range Interpretation Comments Product name (test code Red Blood Cells -1, = 25) Leukored Unit number (test code = [id number] 9796922) Product code (test code Y7964U17 = 3092) Dispense status (test Transfused code = 24) Blood expiration date (test code = 302) Blood type code (test code = 308) Blood type (test code = B POSITIVE 1314) Compatibility (test code Compatible = 6400) [facility], 1 Dvznc9139-89-72 22:22:00 Test Item Value Reference Range Interpretation Comments Product name (test code Red Blood Cells -1, = 25) Leukored Unit number (test code = [id number] 0782795) Product code (test code W4062P14 = 3092) Dispense status (test Transfused code = 24) Blood expiration date (test code = 302) Blood type code (test code = 308) Blood type (test code = B POSITIVE 1314) Compatibility (test code Compatible = 6400) [facility], 1 Espmv8989-85-50 22:22:00 Test Item Value Reference Range Interpretation Comments Product name (test code Red Blood Cells -1, = 25) Leukored Unit number (test code = [id number] 5110269) Product code (test code Y5511C06 = 3092) Dispense status (test Transfused code = 24) Blood expiration date (test code = 302) Blood type code (test code = 308) Blood type (test code = B POSITIVE 1314) Compatibility (test code Compatible = 6400) [facility], 1 Dovdm4210-66-79 22:22:00 Test Item Value Reference Range Interpretation Comments Product name (test code Red Blood Cells -1, = 25) Leukored Unit number (test code = [id number] 1509490) Product code (test code H0504G87 = 3092) Dispense status (test Transfused code = 24) Blood expiration date (test code = 302) Blood type code (test code = 308) Blood type (test code = B POSITIVE 1314) Compatibility (test code Compatible = 6400) [facility], 1 Evxom4957-63-92 22:22:00 Test Item Value Reference Range Interpretation Comments Product name (test code Red Blood Cells -1, = 25) Leukored Unit number (test code = [id number] 6549355) Product code (test code H5125J58 = 3092) Dispense status (test Transfused code = 24) Blood expiration date (test code = 302) Blood type code (test code = 308) Blood type (test code = B POSITIVE 1314) Compatibility (test code Compatible = 6400) [facility] Opauf9505-30-37 22:22:00 Test Item Value Reference Range Interpretation Comments Product name (test code Red Blood Cells -1, = 25) Leukored Unit number (test code = [id number] 3430841) Product code (test code S7633A13 = 3092) Dispense status (test Transfused code = 24) Blood expiration date (test code = 302) Blood type code (test code = 308) Blood type (test code = B POSITIVE 1314) Compatibility (test code Compatible = 6400) [facility] pathology mawqrhu7636-80-04 20:10:46 Test Item Value Reference Range Interpretation Comments Case number (test code = [id number]) Surgical pathology See link below for report (test code = PDF Lab Report 2255) Result status (test code This is Final Report = 6298735) for [address] pathology cadpwjd4792-81-51 20:10:46 Test Item Value Reference Range Interpretation Comments Case number (test code = [id number]) Surgical pathology See link below for report (test code = PDF Lab Report 2255) Result status (test code This is Final Report = 7393371) for [address] pathology swtarcl0753-67-12 20:10:46 Test Item Value Reference Range Interpretation Comments Case number (test code = [id number]) Surgical pathology See link below for report (test code = PDF Lab Report 2255) Result status (test code This is Final Report = 4101394) for [address] pathology [id number] 20:10:46 Test Item Value Reference Range Interpretation Comments Case number (test code = [id number]) Surgical pathology See link below for report (test code = PDF Lab Report 2255) Result status (test code This is Final Report = 2398305) for [address] pathology gcjakel9497-55-61 20:10:46 Test Item Value Reference Range Interpretation Comments Case number (test code = [id number]) Surgical pathology See link below for report (test code = PDF Lab Report 2255) Result status (test code This is Final Report = 1308296) for [address] pathology crwxnwr9012-59-24 20:10:46 Test Item Value Reference Range Interpretation Comments Case number (test code = [id number]) Surgical pathology See link below for report (test code = PDF Lab Report 2255) Result status (test code This is Final Report = 1062869) for [address] pathology nchmutk6674-48-55 20:10:46 Test Item Value Reference Range Interpretation Comments Case number (test code = [id number]) Surgical pathology See link below for report (test code = PDF Lab Report 2255) Result status (test code This is Final Report = 8883831) for [address] pathology ivrxtqj6137-22-26 20:10:46 Test Item Value Reference Range Interpretation Comments Case number (test code = [id number]) Surgical pathology See link below for report (test code = PDF Lab Report 2255) Result status (test code This is Final Report = 4220018) for [address] pathology hoodvgf6287-20-66 20:10:46 Test Item Value Reference Range Interpretation Comments Case number (test code = [id number]) Surgical pathology See link below for report (test code = PDF Lab Report 2255) Result status (test code This is Final Report = 5708028) for [address] pathology udpviil3698-22-38 20:10:46 Test Item Value Reference Range Interpretation Comments Case number (test code = [id number]) Surgical pathology See link below for report (test code = PDF Lab Report 2255) Result status (test code This is Final Report = 7877442) [address] pheresis, 1 Mdwuo3972-12-59 15:35:00 Test Item Value Reference Range Interpretation Comments Product name (test code Bogdan Fraire LR, Path = 25) Red cont3 Unit number (test code = [id number] 2479405) Product code (test code O7456B96 = 3092) Dispense status (test Transfused code = 24) Blood expiration date (test code = 302) Blood type code (test code = 308) Blood type (test code = O POSITIVE 1314) Compatibility (test code Not required = 6400) [facility], 1 Rfkho6407-18-03 15:35:00 Test Item Value Reference Range Interpretation Comments Product name (test code Bogdan Henley LR, Path = 25) Red cont3 Unit number (test code = [id number] 6433508) Product code (test code E7986Y12 = 3092) Dispense status (test Transfused code = 24) Blood expiration date (test code = 302) Blood type code (test code = 308) Blood type (test code = O POSITIVE 1314) Compatibility (test code Not required = 6400) [facility], 1 Prbea6368-82-50 15:35:00 Test Item Value Reference Range Interpretation Comments Product name (test code Bogdan Henley LR, Path = 25) Red cont3 Unit number (test code = [id number] 7862594) Product code (test code V3432Q05 = 3092) Dispense status (test Transfused code = 24) Blood expiration date (test code = 302) Blood type code (test code = 308) Blood type (test code = O POSITIVE 1314) Compatibility (test code Not required = 6400) [facility], 1 Bzkan4340-28-86 15:35:00 Test Item Value Reference Range Interpretation Comments Product name (test code Bogdan Henley LR, Path = 25) Red cont3 Unit number (test code = [id number] 2490580) Product code (test code I6062M88 = 3092) Dispense status (test Transfused code = 24) Blood expiration date (test code = 302) Blood type code (test code = 308) Blood type (test code = O POSITIVE 1314) Compatibility (test code Not required = 6400) [facility], 1 Fckcx2377-21-05 15:35:00 Test Item Value Reference Range Interpretation Comments Product name (test code Platerick Henley LR, Path = 25) Red cont3 Unit number (test code = [id number] 3476590) Product code (test code X2314U14 = 3092) Dispense status (test Transfused code = 24) Blood expiration date (test code = 302) Blood type code (test code = 308) Blood type (test code = O POSITIVE 1314) Compatibility (test code Not required = 6400) [facility], 1 Tncwy0696-11-91 15:35:00 Test Item Value Reference Range Interpretation Comments Product name (test code Bogdan Henley LR, Path = 25) Red cont3 Unit number (test code = [id number] 7221700) Product code (test code O2492I09 = 3092) Dispense status (test Transfused code = 24) Blood expiration date (test code = 302) Blood type code (test code = 308) Blood type (test code = O POSITIVE 1314) Compatibility (test code Not required = 6400) [facility], 1 Kewxq0666-56-07 15:35:00 Test Item Value Reference Range Interpretation Comments Product name (test code Bogdan Henley LR, Path = 25) Red cont3 Unit number (test code = [id number] 9690821) Product code (test code U4184B56 = 3092) Dispense status (test Transfused code = 24) Blood expiration date (test code = 302) Blood type code (test code = 308) Blood type (test code = O POSITIVE 1314) Compatibility (test code Not required = 6400) [facility], 1 Hqdvj9783-84-99 15:35:00 Test Item Value Reference Range Interpretation Comments Product name (test code Bogdan Henley LR, Path = 25) Red cont3 Unit number (test code = [id number] 3955788) Product code (test code V0571U64 = 3092) Dispense status (test Transfused code = 24) Blood expiration date (test code = 302) Blood type code (test code = 308) Blood type (test code = O POSITIVE 1314) Compatibility (test code Not required = 6400) [facility], 1 Fyhgu8969-21-30 15:35:00 Test Item Value Reference Range Interpretation Comments Product name (test code Platerick tAph LR, Path = 25) Red cont3 Unit number (test code = [id number] 6364990) Product code (test code K4019J04 = 3092) Dispense status (test Transfused code = 24) Blood expiration date (test code = 302) Blood type code (test code = 308) Blood type (test code = O POSITIVE 1314) Compatibility (test code Not required = 6400) [facility], 1 Fqrut9634-24-99 15:35:00 Test Item Value Reference Range Interpretation Comments Product name (test code Bogdan GARDINER, Path = 25) Red cont3 Unit number (test code = [id number] 4733221) Product code (test code Y3261G11 = 3092) Dispense status (test Transfused code = 24) Blood expiration date (test code = 302) Blood type code (test code = 308) Blood type (test code = O POSITIVE 1314) Compatibility (test code Not required = 6400) [facility] trbv5685-13-33 12:13:24 Test Item Value Reference Range Interpretation Comments Activated clotting time See_Comment H Oper ator Name: (test code = 5298) Bryn thorntoneaDevice ID: [id number] [Automated mess age] The system [employer] generated this result transmitted ref erence range: 96 - 152 sec. The reference r leo was not used to interpret this result as normal/abnor mal. Lab Interpretation (test Abnormal code = 31970-8) [facility] cgng7774-30-17 12:13:24 Test Item Value Reference Range Interpretation Comments Activated clotting time See_Comment H Oper ator Name: (test code = 5298) Bryn Denny eneaDevice ID: [id number] [Automated mess age] The system [employer] generated this result transmitted ref erence range: 96 - 152 sec. The reference r leo was not used to interpret this result as normal/abnor mal. Lab Interpretation (test Abnormal code = 34993-0) [facility] lkms0467-74-39 12:13:24 Test Item Value Reference Range Interpretation Comments Activated clotting time See_Comment H Oper ator Name: (test code = 5298) Bryn Denny eneaDevice ID: [id number] [Automated mess age] The system [employer] generated this result transmitted ref erence range: 96 - 152 sec. The reference r leo was not used to interpret this result as normal/abnor mal. Lab Interpretation (test Abnormal code = 28412-2) [facility] aknq2035-94-05 12:13:24 Test Item Value Reference Range Interpretation Comments Activated clotting time See_Comment H Oper ator Name: (test code = 5298) Bryn Sj Diase ID: [id number] [Automated mess age] The system [employer] generated this result transmitted ref erence range: 96 - 152 sec. The reference r leo was not used to interpret this result as normal/abnor mal. Lab Interpretation (test Abnormal code = 67862-7) [facility] tiyb2243-93-08 12:13:24 Test Item Value Reference Range Interpretation Comments Activated clotting time See_Comment H Oper ator Name: (test code = 5298) Estelarikkielytico Diase ID: [id number] [Automated mess age] The system [employer] generated this result transmitted ref erence range: 96 - 152 sec. The reference r leo was not used to interpret this result as normal/abnor mal. Lab Interpretation (test Abnormal code = 66294-6) [facility] xxor2405-60-72 12:13:24 Test Item Value Reference Range Interpretation Comments Activated clotting time See_Comment H Oper ator Name: (test code = 5298) Bryn Sj Diase ID: [id number] [Automated mess age] The system [employer] generated this result transmitted ref erence range: 96 - 152 sec. The reference r leo was not used to interpret this result as normal/abnor mal. Lab Interpretation (test Abnormal code = 88777-8) [facility] [id number] 12:13:24 Test Item Value Reference Range Interpretation Comments Activated clotting time See_Comment H Oper ator Name: (test code = 5298) Bryn Sj Shorevice ID: [id number] [Automated mess age] The system [employer] h generated this result transmitted ref erence range: 96 - 152 sec. The reference r leo was not used to interpret this result as normal/abnor mal. Lab Interpretation (test Abnormal code = 74275-5) [facility] [id number] 12:13:24 Test Item Value Reference Range Interpretation Comments Activated clotting time See_Comment H Oper ator Name: (test code = 5298) Bryn Denny norbertoeaDevice ID: [id number] [Automated mess age] The system [employer] generated this result transmitted ref erence range: 96 - 152 sec. The reference r leo was not used to interpret this result as normal/abnor mal. Lab Interpretation (test Abnormal code = 07727-8) [facility] clotting [id number] 12:13:24 Test Item Value Reference Range Interpretation Comments Activated clotting time See_Comment H Oper ator Name: (test code = 5298) Bryn Denny cocoDevice ID: [id number] [Automated mess age] The system [employer] generated this result transmitted ref erence range: 96 - 152 sec. The reference r leo was not used to interpret this result as normal/abnor mal. Lab Interpretation (test Abnormal code = 01550-6) [facility] [id number] 12:13:24 Test Item Value Reference Range Interpretation Comments Activated clotting time See_Comment H Oper ator Name: (test code = 5298) Bryn Denny Silvianovice ID: [id number] [Automated mess age] The system [employer] generated this result transmitted ref erence range: 96 - 152 sec. The reference r leo was not used to interpret this result as normal/abnor mal. Lab Interpretation (test Abnormal code = 47710-3) [facility] [id number] 14:37:48 Test Item Value Reference Range Interpretation Comments POC sodium (test code = 138 mmol/L 314-388 2972-0) POC potassium (test 5.5 mmol/L 3.5-5 H code = 6298-4) POC glucose (test code 295 mg/dL 65-99 H = 2339-0) POC creatinine (test 5.3 mg/dl 0.5-0.9 H Operato r Name: Pue code = 23562-3) Lisavice ID: [id number] POC hemoglobin (test 18.4 g/dL 12-16 H code = 718-7) POC hematocrit (test 54 % 37-47 H code = 4544-3) Lab Interpretation Abnormal (test code = 09433-0) [facility]2021-11-29 14:37:48 Test Item Value Reference Range Interpretation Comments POC sodium (test code = 138 mmol/L 570-029 1187-0) POC potassium (test 5.5 mmol/L 3.5-5 H code = 6298-4) POC glucose (test code 295 mg/dL 65-99 H = 2339-0) POC creatinine (test 5.3 mg/dl 0.5-0.9 H Operato r Name: Pugne code = 18285-9) AileenDevice ID: [id number] POC hemoglobin (test 18.4 g/dL 12-16 H code = 718-7) POC hematocrit (test 54 % 37-47 H code = 4544-3) Lab Interpretation Abnormal (test code = 56246-8) [facility]2021-11-29 14:37:48 Test Item Value Reference Range Interpretation Comments POC sodium (test code = 138 mmol/L 670-851 9449-0) POC potassium (test 5.5 mmol/L 3.5-5 H code = 6298-4) POC glucose (test code 295 mg/dL 65-99 H = 2339-0) POC creatinine (test 5.3 mg/dl 0.5-0.9 H Operato r Name: Pugne code = 27216-6) AileenDevice ID: [id number] POC hemoglobin (test 18.4 g/dL 12-16 H code = 718-7) POC hematocrit (test 54 % 37-47 H code = 4544-3) Lab Interpretation Abnormal (test code = 66389-7) [facility]2021-11-29 14:37:48 Test Item Value Reference Range Interpretation Comments POC sodium (test code = 138 mmol/L 534-299 6560-0) POC potassium (test 5.5 mmol/L 3.5-5 H code = 6298-4) POC glucose (test code 295 mg/dL 65-99 H = 2339-0) POC creatinine (test 5.3 mg/dl 0.5-0.9 H Operato r Name: Pugne code = 83862-4) AileenDevice ID: [id number] POC hemoglobin (test 18.4 g/dL 12-16 H code = 718-7) POC hematocrit (test 54 % 37-47 H code = 4544-3) Lab Interpretation Abnormal (test code = 90192-3) [place] 589331-11-29 14:37:48 Test Item Value Reference Range Interpretation Comments POC sodium (test code = 138 mmol/L 570-584 7611-0) POC potassium (test 5.5 mmol/L 3.5-5 H code = 6298-4) POC glucose (test code 295 mg/dL 65-99 H = 2339-0) POC creatinine (test 5.3 mg/dl 0.5-0.9 H Operato r Name: Johannae code = 48630-5) AiljoshDevice ID: [id number] POC hemoglobin (test 18.4 g/dL 12-16 H code = 718-7) POC hematocrit (test 54 % 37-47 H code = 4544-3) Lab Interpretation Abnormal (test code = 69557-2) [facility]2021-11-29 14:37:48 Test Item Value Reference Range Interpretation Comments POC sodium (test code = 138 mmol/L 204-919 7308-0) POC potassium (test 5.5 mmol/L 3.5-5.0 H code = 6298-4) POC glucose (test code 295 mg/dL 65-99 H = 2339-0) POC creatinine (test 5.3 mg/dl 0.5-0.9 H Operato r Name: Johannae code = 85400-1) AileenDevice ID: [id number] POC hemoglobin (test 18.4 g/dL 12.0-16.0 H code = 718-7) POC hematocrit (test 54 % 37-47 H code = 4544-3) Lab Interpretation Abnormal (test code = 16922-4) [place] 589331-11-29 14:37:48 Test Item Value Reference Range Interpretation Comments POC sodium (test code = 138 mmol/L 106-926 4852-0) POC potassium (test 5.5 mmol/L 3.5-5.0 H code = 6298-4) POC glucose (test code 295 mg/dL 65-99 H = 2339-0) POC creatinine (test 5.3 mg/dl 0.5-0.9 H Operato r Name: Pugne code = 79785-6) AiljoshDevice ID: [id number] POC hemoglobin (test 18.4 g/dL 12.0-16.0 H code = 718-7) POC hematocrit (test 54 % 37-47 H code = 4544-3) Lab Interpretation Abnormal (test code = 00029-3) [facility]2021-11-29 14:37:48 Test Item Value Reference Range Interpretation Comments POC sodium (test code = 138 mmol/L 805-856 7797-0) POC potassium (test 5.5 mmol/L 3.5-5 H code = 6298-4) POC glucose (test code 295 mg/dL 65-99 H = 2339-0) POC creatinine (test 5.3 mg/dl 0.5-0.9 H Operato r Name: Pugne code = 59096-0) AiljoshDevice ID: [id number] POC hemoglobin (test 18.4 g/dL 12-16 H code = 718-7) POC hematocrit (test 54 % 37-47 H code = 4544-3) Lab Interpretation Abnormal (test code = 29894-0) [facility]2021-11-29 14:37:48 Test Item Value Reference Range Interpretation Comments POC sodium (test code = 138 mmol/L 664-628 3489-0) POC potassium (test 5.5 mmol/L 3.5-5 H code = 6298-4) POC glucose (test code 295 mg/dL 65-99 H = 2339-0) POC creatinine (test 5.3 mg/dl 0.5-0.9 H Operato r Name: Pugne code = 32583-3) AileenDevice ID: [id number] POC hemoglobin (test 18.4 g/dL 12-16 H code = 718-7) POC hematocrit (test 54 % 37-47 H code = 4544-3) Lab Interpretation Abnormal (test code = 30123-4) [facility]2021-11-29 14:37:48 Test Item Value Reference Range Interpretation Comments POC sodium (test code = 138 mmol/L 511-572 3307-0) POC potassium (test 5.5 mmol/L 3.5-5 H code = 6298-4) POC glucose (test code 295 mg/dL 65-99 H = 2339-0) POC creatinine (test 5.3 mg/dl 0.5-0.9 H Operato r Name: Pat code = 91178-3) Viridiana ID: [id number] POC hemoglobin (test 18.4 g/dL 12-16 H code = 718-7) POC hematocrit (test 54 % 37-47 H code = 4544-3) Lab Interpretation Abnormal (test code = 42268-6) [facility] [Presence] in Respiratory specimen by EMANUEL with probe olisardls7762-05-49 07:53:49 Test Item Value Reference Range Interpretation Comments SARS-CoV-2 (COVID-19) RNA Not detected Not-Detected [Presence] in Respiratory specimen by EMANUEL with probe detection (test code = 49590-4) 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 CZRNS2503-25-07 08:17:00 Test Item Value Reference Range Interpretation Comments Glucose Lvl (test code = Glucose Lvl) 94 70-[address] [facility] IFSWM3310-93-88 08:17:00 Test Item Value Reference Range Interpretation Comments BUN (test code = BUN) 27 7-22 [facility]2021-08-11 08:17:00 Test Item Value Reference Range Interpretation Comments Creatinine Lvl (test code = Creatinine 4.95 0.50-1.40 Lvl) [facility]2021-08-11 08:17:00 Test Item Value Reference Range Interpretation Comments Sodium Lvl (test code = Sodium Lvl) 136 135-145 [facility]2021-08-11 08:17:00 Test Item Value Reference Range Interpretation Comments Potassium Lvl (test code = Potassium 3.9 3.5-5.1 Lvl) [place] 589461-08-11 08:17:00 Test Item Value Reference Range Interpretation Comments Chloride Lvl (test code = Chloride Lvl) 103 95-109 [place] 589461-08-11 08:17:00 Test Item Value Reference Range Interpretation Comments CO2 (test code = CO2) 30 24-32 [place] 589461-08-11 08:17:00 Test Item Value Reference Range Interpretation Comments AGAP (test code = AGAP) 6.9 10.0-20.0 [place] 589461-08-11 08:17:00 Test Item Value Reference Range Interpretation Comments Calcium Lvl (test code = Calcium Lvl) 8.5 8.5-10.5 [place] 589461-08-11 08:17:00 Test Item Value Reference Range Interpretation Comments eGFR (test code = eGFR) 10 [place] 589461-08-11 08:17:00 Test Item Value Reference Range Interpretation Comments Phosphorus (test code = Phosphorus) 3.0 2.5-4.5 [place] 589461-08-11 08:17:00 Test Item Value Reference Range Interpretation Comments Magnesium Lvl (test code = Magnesium 2.4 1.8-2.4 Lvl) [place] 984011-08-11 08:17:00 Test Item Value Reference Range Interpretation Comments WBC (test code = WBC) 2.3 3.7-10.4 [place] 984011-08-11 08:17:00 Test Item Value Reference Range Interpretation Comments RBC (test code = RBC) 2.65 4.20-5.40 [place] [address]-08-11 08:17:00 Test Item Value Reference Range Interpretation Comments Hgb (test code = Hgb) 7.9 12.0-16.0 [place] [address]-08-11 08:17:00 Test Item Value Reference Range Interpretation Comments Hct (test code = Hct) 24.0 36.0-48.0 [place] 984011-08-11 08:17:00 Test Item Value Reference Range Interpretation Comments MCV (test code = MCV) 90.6 80.0-98.0 [place] [address]-08-11 08:17:00 Test Item Value Reference Range Interpretation Comments MCH (test code = MCH) 29.7 pg 27.0-31.0 [facility] CenterJqgvuvaTTQHBLNXXB8784-49-00 08:17:00 Test Item Value Reference Range Interpretation Comments MCHC (test code = MCHC) 32.7 32.0-36.0 [facility] CenterWwxzlvyGKDXSITZFX4983-78-58 08:17:00 Test Item Value Reference Range Interpretation Comments RDW (test code = RDW) 19.1 11.5-14.5 [place] 984011-08-11 08:17:00 Test Item Value Reference Range Interpretation Comments Platelet (test code = Platelet) 71 133-450 [facility] CenterBtbpemoLLCXVUVHKN5034-49-78 08:17:00 Test Item Value Reference Range Interpretation Comments MPV (test code = MPV) 9.9 7.4-10.4 [facility] CenterDctiveiIPZPNAYOJM2473-55-27 08:17:00 Test Item Value Reference Range Interpretation Comments Segs (test code = Segs) 56.1 45.0-75.0 [facility] CenterKtwluneSNFTLGJCTJ4501-51-36 08:17:00 Test Item Value Reference Range Interpretation Comments Lymphocytes (test code = Lymphocytes) 28.9 20.0-40.0 [facility] CenterCacieckFZEIYUFFLS8819-35-69 08:17:00 Test Item Value Reference Range Interpretation Comments Monocytes (test code = Monocytes) 8.1 2.0-12.0 [facility] CenterUluoqcqLJCINIFTPL6728-89-93 08:17:00 Test Item Value Reference Range Interpretation Comments Eosinophils (test code = 5.9 See_Comment [A utomated message] The Eosinophils) system which ge nerated this result tra nsmitted reference range : <=4.0. The reference r leo was not used to int erpret this result as normal/abnormal . [place] 984011-08-11 08:17:00 Test Item Value Reference Range Interpretation Comments Basophils (test code = 1.0 See_Comment [Aut omated message] The Basophils) system which ge nerated this result tra nsmitted reference range : <=1.0. The reference r leo was not used to int erpret this result as normal/abnormal . [place] 984011-08-11 08:17:00 Test Item Value Reference Range Interpretation Comments Neutrophils # (test code = Neutrophils 1.3 1.5-8.1 #) [place] 984011-08-11 08:17:00 Test Item Value Reference Range Interpretation Comments Lymphocytes # (test code = Lymphocytes 0.7 1.0-5.5 #) [place] 984011-08-11 08:17:00 Test Item Value Reference Range Interpretation Comments Monocytes # (test code 0.2 See_Comment [Aut omated message] The = Monocytes #) system which generated this result tra nsmitted reference range : <=0.8. The reference r leo was not used to int erpret this result as normal/abnormal . [place] 984011-08-11 08:17:00 Test Item Value Reference Range Interpretation Comments Eosinophils # (test code 0.1 See_Comment [A utomated message] The = Eosinophils #) system whic h generated this result tra nsmitted reference range : <=0.5. The reference r leo was not used to int erpret this result as normal/abnormal . [place] 589461-08-10 09:30:00 Test Item Value Reference Range Interpretation Comments Glucose Lvl (test code = Glucose Lvl) 61 70-99 [place] 589461-08-10 09:30:00 Test Item Value Reference Range Interpretation Comments BUN (test code = BUN) 13 7-22 [place] 589461-08-10 09:30:00 Test Item Value Reference Range Interpretation Comments Creatinine Lvl (test code = Creatinine 3.71 0.50-1.40 Lvl) [place] 589461-08-10 09:30:00 Test Item Value Reference Range Interpretation Comments Sodium Lvl (test code = Sodium Lvl) 136 135-145 [place] 589461-08-10 09:30:00 Test Item Value Reference Range Interpretation Comments Potassium Lvl (test code = Potassium 4.3 3.5-5.1 Lvl) [place] 589461-08-10 09:30:00 Test Item Value Reference Range Interpretation Comments Chloride Lvl (test code = Chloride Lvl) 103 95-109 [place] 589461-08-10 09:30:00 Test Item Value Reference Range Interpretation Comments CO2 (test code = CO2) 27 24-32 [place] 589461-08-10 09:30:00 Test Item Value Reference Range Interpretation Comments Calcium Lvl (test code = Calcium Lvl) 7.9 8.5-10.5 [place] 7[address]-08-10 09:30:00 Test Item Value Reference Range Interpretation Comments AGAP (test code = AGAP) 10.3 10.0-20.0 [place] 589461-08-10 09:30:00 Test Item Value Reference Range Interpretation Comments eGFR (test code = eGFR) 15 [place] 589461-08-10 09:30:00 Test Item Value Reference Range Interpretation Comments Magnesium Lvl (test code = Magnesium 2.3 1.8-2.4 Lvl) [place] [address]-08-10 09:30:00 Test Item Value Reference Range Interpretation Comments Phosphorus (test code = Phosphorus) 3.1 2.5-4.5 [place] 984011-08-10 09:30:00 Test Item Value Reference Range Interpretation Comments Segs (test code = Segs) 61.5 45.0-75.0 [place] [address]-08-10 09:30:00 Test Item Value Reference Range Interpretation Comments Lymphocytes (test code = Lymphocytes) 24.6 20.0-40.0 [place] [address]-08-10 09:30:00 Test Item Value Reference Range Interpretation Comments Monocytes (test code = Monocytes) 7.4 2.0-12.0 [place] [address]-08-10 09:30:00 Test Item Value Reference Range Interpretation Comments Eosinophils (test code = 5.5 See_Comment [A utomated message] The Eosinophils) system which nerated this result tra nsmitted reference range : <=4.0. The reference r leo was not used to int erpret this result as normal/abnormal . [place] 984011-08-10 09:30:00 Test Item Value Reference Range Interpretation Comments Basophils (test code = 1.0 See_Comment [Aut omated message] The Basophils) system which ge nerated this result tra nsmitted reference range : <=1.0. The reference r leo was not used to int erpret this result as normal/abnormal . [place] 984011-08-10 09:30:00 Test Item Value Reference Range Interpretation Comments Neutrophils # (test code = Neutrophils 1.6 1.5-8.1 #) [facility] CenterXhbifatHDNFWWDLRY0080-84-54 09:30:00 Test Item Value Reference Range Interpretation Comments Lymphocytes # (test code = Lymphocytes 0.6 1.0-5.5 #) [facility] CenterYplkhtiWYEVJZRBFQ3101-06-03 09:30:00 Test Item Value Reference Range Interpretation Comments Monocytes # (test code 0.2 See_Comment [Aut omated message] The = Monocytes #) system which generated this result tra nsmitted reference range : <=0.8. The reference r leo was not used to int erpret this result as normal/abnormal . [facility] CenterFsmvrjbRZGQGEWTNE9082-68-14 09:30:00 Test Item Value Reference Range Interpretation Comments Eosinophils # (test code 0.1 See_Comment [A utomated message] The = Eosinophils #) system whic h generated this result tra nsmitted reference range : <=0.5. The reference r leo was not used to int erpret this result as normal/abnormal . [facility] CenterRmfixqyKUBZDQYNJH1444-73-75 09:30:00 Test Item Value Reference Range Interpretation [...] studies, if clinically indicated, are recommended. CPT: 18370 [facility] CenterQimfpwkLRPGOTFNDJ4080-61-65 09:30:00 Test Item Value Reference Range Interpretation Comments WBC (test code = WBC) 2.5 3.7-10.4 [place] [address]-08-10 09:30:00 Test Item Value Reference Range Interpretation Comments RBC (test code = RBC) 2.68 4.20-5.40 [place] 984011-08-10 09:30:00 Test Item Value Reference Range Interpretation Comments Hgb (test code = Hgb) 8.2 12.0-16.0 [place] [address]-08-10 09:30:00 Test Item Value Reference Range Interpretation Comments Hct (test code = Hct) 24.3 36.0-48.0 [place] 984011-08-10 09:30:00 Test Item Value Reference Range Interpretation Comments MCV (test code = MCV) 90.9 80.0-98.0 [place] 984011-08-10 09:30:00 Test Item Value Reference Range Interpretation Comments MCH (test code = MCH) 30.5 pg 27.0-31.0 [place] [address]-08-10 09:30:00 Test Item Value Reference Range Interpretation Comments MCHC (test code = MCHC) 33.6 32.0-36.0 [place] 984011-08-10 09:30:00 Test Item Value Reference Range Interpretation Comments RDW (test code = RDW) 19.4 11.5-14.5 [place] 984011-08-10 09:30:00 Test Item Value Reference Range Interpretation Comments Platelet (test code = Platelet) 70 133-450 [place] 984011-08-10 09:30:00 Test Item Value Reference Range Interpretation Comments MPV (test code = MPV) 10.7 7.4-10.4 [place] 589461-08-09 05:10:00 Test Item Value Reference Range Interpretation Comments Glucose Lvl (test code = Glucose Lvl) 69 70-99 [place] 589461-08-09 05:10:00 Test Item Value Reference Range Interpretation Comments BUN (test code = BUN) 29 7-22 [place] 589461-08-09 05:10:00 Test Item Value Reference Range Interpretation Comments Creatinine Lvl (test code = Creatinine 5.14 0.50-1.40 Lvl) [place] 589461-08-09 05:10:00 Test Item Value Reference Range Interpretation Comments Sodium Lvl (test code = Sodium Lvl) 134 135-145 [place] 589461-08-09 05:10:00 Test Item Value Reference Range Interpretation Comments Potassium Lvl (test code = Potassium 5.1 3.5-5.1 Lvl) [place] 589461-08-09 05:10:00 Test Item Value Reference Range Interpretation Comments Chloride Lvl (test code = Chloride Lvl) 98 95-109 [place] 589461-08-09 05:10:00 Test Item Value Reference Range Interpretation Comments CO2 (test code = CO2) 29 24-32 [place] 589461-08-09 05:10:00 Test Item Value Reference Range Interpretation Comments Calcium Lvl (test code = Calcium Lvl) 7.6 8.5-10.5 [place] 589461-08-09 05:10:00 Test Item Value Reference Range Interpretation Comments AGAP (test code = AGAP) 12.1 10.0-20.0 [place] 589461-08-09 05:10:00 Test Item Value Reference Range Interpretation Comments eGFR (test code = eGFR) 10 [place] 589461-08-09 05:10:00 Test Item Value Reference Range Interpretation Comments Magnesium Lvl (test code = Magnesium 2.3 1.8-2.4 Lvl) [place] 589461-08-09 05:10:00 Test Item Value Reference Range Interpretation Comments Phosphorus (test code = Phosphorus) 5.0 2.5-4.5 [facility] CenterQkvvmmtFEAVJXEVOK8247-05-70 05:10:00 Test Item Value Reference Range Interpretation Comments WBC (test code = WBC) 2.7 3.7-10.4 [place] 984011-08-09 05:10:00 Test Item Value Reference Range Interpretation Comments RBC (test code = RBC) 2.80 4.20-5.40 [place] 984011-08-09 05:10:00 Test Item Value Reference Range Interpretation Comments Hgb (test code = Hgb) 8.5 12.0-16.0 [place] 984011-08-09 05:10:00 Test Item Value Reference Range Interpretation Comments Hct (test code = Hct) 25.7 36.0-48.0 [place] 984011-08-09 05:10:00 Test Item Value Reference Range Interpretation Comments MCV (test code = MCV) 91.7 80.0-98.0 [place] 984011-08-09 05:10:00 Test Item Value Reference Range Interpretation Comments MCH (test code = MCH) 30.4 pg 27.0-31.0 [place] [address]-08-09 05:10:00 Test Item Value Reference Range Interpretation Comments MCHC (test code = MCHC) 33.1 32.0-36.0 [facility] CenterXaeagltPPARTVBCXG4012-44-71 05:10:00 Test Item Value Reference Range Interpretation Comments RDW (test code = RDW) 19.2 11.5-14.5 [place] 984011-08-09 05:10:00 Test Item Value Reference Range Interpretation Comments Platelet (test code = Platelet) 72 133-450 [facility] CenterJgewctaFIEKOYTRKB9015-79-18 05:10:00 Test Item Value Reference Range Interpretation Comments MPV (test code = MPV) 9.9 7.4-10.4 [place] 984011-08-09 05:10:00 Test Item Value Reference Range Interpretation Comments Segs (test code = Segs) 72.6 45.0-75.0 [place] 984011-08-09 05:10:00 Test Item Value Reference Range Interpretation Comments Lymphocytes (test code = Lymphocytes) 15.9 20.0-40.0 [place] 984011-08-09 05:10:00 Test Item Value Reference Range Interpretation Comments Monocytes (test code = Monocytes) 7.3 2.0-12.0 [facility] CenterUsmjvkxBQJAFVWMHN9678-08-51 05:10:00 Test Item Value Reference Range Interpretation Comments Eosinophils (test code = 3.4 See_Comment [A utomated message] The Eosinophils) system which ge nerated this result tra nsmitted reference range : <=4.0. The reference r leo was not used to int erpret this result as normal/abnormal . [facility] CenterPabwshlALKPJDEGCB3657-49-10 05:10:00 Test Item Value Reference Range Interpretation Comments Basophils (test code = 0.8 See_Comment [Aut omated message] The Basophils) system which ge nerated this result tra nsmitted reference range : <=1.0. The reference r leo was not used to int erpret this result as normal/abnormal . [place] 984011-08-09 05:10:00 Test Item Value Reference Range Interpretation Comments Neutrophils # (test code = Neutrophils 1.9 1.5-8.1 #) [facility] CenterPajqpjnJBRNNLXHLL0138-80-91 05:10:00 Test Item Value Reference Range Interpretation Comments Lymphocytes # (test code = Lymphocytes 0.4 1.0-5.5 #) [facility]prrspbXYOUBZOZXZ4377-77-04 05:10:00 Test Item Value Reference Range Interpretation Comments Monocytes # (test code 0.2 See_Comment [Aut omated message] The = Monocytes #) system which generated this result tra nsmitted reference range : <=0.8. The reference r leo was not used to int erpret this result as normal/abnormal . [facility] CenterGxidqndYCXWQZPSCX3268-42-77 05:10:00 Test Item Value Reference Range Interpretation Comments Eosinophils # (test code 0.1 See_Comment [A utomated message] The = Eosinophils #) system whic h generated this result tra nsmitted reference range : <=0.5. The reference r leo was not used to int erpret this result as normal/abnormal . [facility]2021-08-09 05:10:00 Test Item Value Reference Range Interpretation Comments Ca Ion WB (test code = Ca Ion WB) 1.10 1.05-1.25 [facility]2021-08-09 05:10:00 Test Item Value Reference Range Interpretation Comments Ca Norm WB (test code = Ca Norm WB) 1.06 1.05-1.25 [facility] [id number] 18:36:00 Test Item Value Reference Range Interpretation Comments C difficile DNA (test Negative (01/26/21 1:36 code = C difficile DNA) PM) [facility]2021-08-08 07:33:00 Test Item Value Reference Range Interpretation Comments Ca Ion WB (test code = Ca Ion WB) 1.12 1.05-1.25 [facility] [id number] 07:33:00 Test Item Value Reference Range Interpretation Comments Ca Norm WB (test code = Ca Norm WB) 1.07 1.05-1.[address] [facility] [id number] 07:30:00 Test Item Value Reference Range Interpretation Comments Glucose Lvl (test code = Glucose Lvl) 65 70-99 [facility] [id number] 07:30:00 Test Item Value Reference Range Interpretation Comments BUN (test code = BUN) 21 7-22 [place] 589461-08-08 07:30:00 Test Item Value Reference Range Interpretation Comments Creatinine Lvl (test code = Creatinine 4.18 0.50-1.40 Lvl) [place] 589461-08-08 07:30:00 Test Item Value Reference Range Interpretation Comments Sodium Lvl (test code = Sodium Lvl) 136 135-145 [place] 589461-08-08 07:30:00 Test Item Value Reference Range Interpretation Comments Potassium Lvl (test code = Potassium 4.5 3.5-5.1 Lvl) [place] 589461-08-08 07:30:00 Test Item Value Reference Range Interpretation Comments Chloride Lvl (test code = Chloride Lvl) 99 95-109 [place] 589461-08-08 07:30:00 Test Item Value Reference Range Interpretation Comments CO2 (test code = CO2) 31 24-32 [place] 589461-08-08 07:30:00 Test Item Value Reference Range Interpretation Comments AGAP (test code = AGAP) 10.5 10.0-20.0 [place] 589461-08-08 07:30:00 Test Item Value Reference Range Interpretation Comments Calcium Lvl (test code = Calcium Lvl) 7.9 8.5-10.5 [place] 589461-08-08 07:30:00 Test Item Value Reference Range Interpretation Comments eGFR (test code = eGFR) 13 [place] 589461-08-08 07:30:00 Test Item Value Reference Range Interpretation Comments Magnesium Lvl (test code = Magnesium 2.2 1.8-2.4 Lvl) [place] 589461-08-08 07:30:00 Test Item Value Reference Range Interpretation Comments Phosphorus (test code = Phosphorus) 4.4 2.5-4.5 [place] 984011-08-08 07:30:00 Test Item Value Reference Range Interpretation Comments WBC (test code = WBC) 2.3 3.7-10.4 [place] 984011-08-08 07:30:00 Test Item Value Reference Range Interpretation Comments RBC (test code = RBC) 2.88 4.20-5.40 [place] 984011-08-08 07:30:00 Test Item Value Reference Range Interpretation Comments Hgb (test code = Hgb) 8.6 12.0-16.0 [facility] CenterDesutcgKCUKZULWRD6760-38-71 07:30:00 Test Item Value Reference Range Interpretation Comments Hct (test code = Hct) 26.6 36.0-48.0 [facility] CenterCjokfjkCPRLZVMDOB5363-86-69 07:30:00 Test Item Value Reference Range Interpretation Comments MCV (test code = MCV) 92.2 80.0-98.0 [facility] CenterJduxygsRXUUQFRHCZ6925-79-96 07:30:00 Test Item Value Reference Range Interpretation Comments MCH (test code = MCH) 29.8 pg 27.0-31.0 [facility] CenterHgvbimhAOVWVTPZPU1411-40-06 07:30:00 Test Item Value Reference Range Interpretation Comments MCHC (test code = MCHC) 32.4 32.0-36.0 [facility] CenterUohznelROKISSKKFU0034-52-10 07:30:00 Test Item Value Reference Range Interpretation Comments RDW (test code = RDW) 19.7 11.5-14.5 [facility] CenterDojabooNBZEABLSBV0150-69-89 07:30:00 Test Item Value Reference Range Interpretation Comments Platelet (test code = Platelet) 83 133-450 [facility] CenterCkqttyoKBCGZFSAUK0676-93-45 07:30:00 Test Item Value Reference Range Interpretation Comments MPV (test code = MPV) 10.2 7.4-10.4 [facility] CenterCslnvbbUNZCTTDPIL7742-27-20 07:30:00 Test Item Value Reference Range Interpretation Comments Segs (test code = Segs) 64.0 45.0-75.0 [facility] CenterDyoeackTJOIAYRQPW9759-08-26 07:30:00 Test Item Value Reference Range Interpretation Comments Lymphocytes (test code = Lymphocytes) 24.1 20.0-40.0 [place] 984011-08-08 07:30:00 Test Item Value Reference Range Interpretation Comments Monocytes (test code = Monocytes) 7.0 2.0-12.0 [place] 984011-08-08 07:30:00 Test Item Value Reference Range Interpretation Comments Eosinophils (test code = 3.7 See_Comment [A utomated message] The Eosinophils) system which ge nerated this result tra nsmitted reference range : <=4.0. The reference r leo was not used to int erpret this result as normal/abnormal . [place] [address]-08-08 07:30:00 Test Item Value Reference Range Interpretation Comments Basophils (test code = 1.2 See_Comment [Aut omated message] The Basophils) system which ge nerated this result tra nsmitted reference range : <=1.0. The reference r leo was not used to int erpret this result as normal/abnormal . [place] 984011-08-08 07:30:00 Test Item Value Reference Range Interpretation Comments Neutrophils # (test code = Neutrophils 1.5 1.5-8.1 #) [place] 984011-08-08 07:30:00 Test Item Value Reference Range Interpretation Comments Lymphocytes # (test code = Lymphocytes 0.6 1.0-5.5 #) [place] 984011-08-08 07:30:00 Test Item Value Reference Range Interpretation Comments Monocytes # (test code 0.2 See_Comment [Aut omated message] The = Monocytes #) system which generated this result tra nsmitted reference range : <=0.8. The reference r leo was not used to int erpret this result as normal/abnormal . [place] [address]-08-08 07:30:00 Test Item Value Reference Range Interpretation Comments Eosinophils # (test code 0.1 See_Comment [A utomated message] The = Eosinophils #) system whic h generated this result tra nsmitted reference range : <=0.5. The reference r leo was not used to int erpret this result as normal/abnormal . [place] 589461-08-07 09:32:00 Test Item Value Reference Range Interpretation Comments Glucose Lvl (test code = Glucose Lvl) 59 70-99 [place] 589461-08-07 09:32:00 Test Item Value Reference Range Interpretation Comments BUN (test code = BUN) 11 7-22 [place] 589461-08-07 09:32:00 Test Item Value Reference Range Interpretation Comments Creatinine Lvl (test code = Creatinine 2.75 0.50-1.40 Lvl) [place] 589461-08-07 09:32:00 Test Item Value Reference Range Interpretation Comments Sodium Lvl (test code = Sodium Lvl) 138 135-145 [facility] [id number] 09:32:00 Test Item Value Reference Range Interpretation Comments Potassium Lvl (test code = Potassium 4.1 3.5-5.1 Lvl) [place] 589461-08-07 09:32:00 Test Item Value Reference Range Interpretation Comments Chloride Lvl (test code = Chloride Lvl) 104 95-109 [place] 589461-08-07 09:32:00 Test Item Value Reference Range Interpretation Comments CO2 (test code = CO2) 29 24-32 [place] 589461-08-07 09:32:00 Test Item Value Reference Range Interpretation Comments Calcium Lvl (test code = Calcium Lvl) 8.3 8.5-10.5 [place] [address]-08-07 09:32:00 Test Item Value Reference Range Interpretation Comments AGAP (test code = AGAP) 9.1 10.0-20.0 [place] 589461-08-07 09:32:00 Test Item Value Reference Range Interpretation Comments eGFR (test code = eGFR) 21 [place] 589461-08-07 09:32:00 Test Item Value Reference Range Interpretation Comments Magnesium Lvl (test code = Magnesium 2.2 1.8-2.4 Lvl) [place] 589461-08-07 09:32:00 Test Item Value Reference Range Interpretation Comments Phosphorus (test code = Phosphorus) 3.9 2.5-4.5 [place] 984011-08-07 09:32:00 Test Item Value Reference Range Interpretation Comments WBC (test code = WBC) 2.3 3.7-10.4 [place] 984011-08-07 09:32:00 Test Item Value Reference Range Interpretation Comments RBC (test code = RBC) 2.78 4.20-5.40 [place] [address]-08-07 09:32:00 Test Item Value Reference Range Interpretation Comments Hgb (test code = Hgb) 8.4 12.0-16.0 [place] [address]-08-07 09:32:00 Test Item Value Reference Range Interpretation Comments Hct (test code = Hct) 25.2 36.0-48.0 [place] [address]-08-07 09:32:00 Test Item Value Reference Range Interpretation Comments MCV (test code = MCV) 90.5 80.0-98.0 [facility] SouthQpfzoegBKJBJCUVIV3496-53-62 09:32:00 Test Item Value Reference Range Interpretation Comments MCH (test code = MCH) 30.4 pg 27.0-31.0 [facility] CenterCuexajsYEEYRYMOXC4898-08-39 09:32:00 Test Item Value Reference Range Interpretation Comments MCHC (test code = MCHC) 33.5 32.0-36.0 [facility] SouthQqniqmyPTMZDJKDCX0366-96-56 09:32:00 Test Item Value Reference Range Interpretation Comments RDW (test code = RDW) 19.0 11.5-14.5 [facility] SouthKsyxnayDIRWTGGAFR3270-53-82 09:32:00 Test Item Value Reference Range Interpretation Comments Platelet (test code = Platelet) 87 133-450 [facility] CenterGgfnsykNAIRPNXTZE2528-52-55 09:32:00 Test Item Value Reference Range Interpretation Comments MPV (test code = MPV) 10.0 7.4-10.4 [facility] [id number] 05:33:00 Test Item Value Reference Range Interpretation Comments ABO/Rh (test code = ABO/Rh) B POS [facility] [id number] 05:33:00 Test Item Value Reference Range Interpretation Comments Antibody Scrn (test Negative (01/24/21 12:33 code = Antibody Scrn) AM) [facility] CenterAptauksPLZDPKCRWM6179-57-77 05:33:00 Test Item Value Reference Range Interpretation Comments Segs (test code = Segs) 60.2 45.0-75.0 [facility] SouthTzrzxsdMIGLQHMXGQ7007-98-20 05:33:00 Test Item Value Reference Range Interpretation Comments Lymphocytes (test code = Lymphocytes) 28.6 20.0-40.0 [facility] SouthWasqknyRXLIXWTTSW1628-65-65 05:33:00 Test Item Value Reference Range Interpretation Comments Monocytes (test code = Monocytes) 5.8 2.0-12.0 [facility] CenterZyyautaTQNDDZIALX5265-54-19 05:33:00 Test Item Value Reference Range Interpretation Comments Eosinophils (test code = 4.2 See_Comment [A utomated message] The Eosinophils) system which ge nerated this result tra nsmitted reference range : <=4.0. The reference r leo was not used to int erpret this result as normal/abnormal . [facility] CenterUetawulETPLAEXOZM6382-02-84 05:33:00 Test Item Value Reference Range Interpretation Comments Basophils (test code = 1.2 See_Comment [Aut omated message] The Basophils) system which ge nerated this result tra nsmitted reference range : <=1.0. The reference r leo was not used to int erpret this result as normal/abnormal . [facility] CenterVxpinijMBSONABAZZ6666-67-63 05:33:00 Test Item Value Reference Range Interpretation Comments Neutrophils # (test code = Neutrophils 2.2 1.5-8.1 #) [facility] CenterOkbsfnmVRGFAVSFNU8676-13-23 05:33:00 Test Item Value Reference Range Interpretation Comments Lymphocytes # (test code = Lymphocytes 1.1 1.0-5.5 #) [facility] CenterVhcgfozJHKEFDSSRT1990-72-15 05:33:00 Test Item Value Reference Range Interpretation Comments Monocytes # (test code 0.2 See_Comment [Aut omated message] The = Monocytes #) system which generated this result tra nsmitted reference range : <=0.8. The reference r leo was not used to int erpret this result as normal/abnormal . [facility] CenterRvtwwpjWHKMCLWPZI2236-43-74 05:33:00 Test Item Value Reference Range Interpretation Comments Eosinophils # (test code 0.2 See_Comment [A utomated message] The = Eosinophils #) system whic h generated this result tra nsmitted reference range : <=0.5. The reference r leo was not used to int erpret this result as normal/abnormal . [facility] CenterRrprnelQBBHXPUTTN2434-76-43 05:53:00 Test Item Value Reference Range Interpretation Comments PT (test code = PT) 14.4 s 12.0-14.7 [facility] CenterIlgmtkbDMJNMMNYVG0192-95-52 05:53:00 Test Item Value Reference Range Interpretation Comments INR (test code = INR) 1.13 1 0.85-1.17 [place] 984011-08-05 05:53:00 Test Item Value Reference Range Interpretation Comments Fibrinogen Lvl (test code = Fibrinogen 319 230-510 Lvl) [facility] CenterCbdfnmxXLRIXQKWEH2913-46-81 05:53:00 Test Item Value Reference Range Interpretation Comments Thrombin Time (test code = Thrombin 15.9 s 15.0-21.2 Time) [facility] CenterTfsrqxbGCOITAHDPL9440-83-76 05:53:00 Test Item Value Reference Range Interpretation Comments PTT (test code = PTT) 47.0 s 22.9-35.8 [place] 984011-08-05 05:53:00 Test Item Value Reference Range Interpretation Comments D-Dimer (test code = D-Dimer) 0.91 [place] 984011-08-05 05:53:00 Test Item Value Reference Range Interpretation Comments Basophils # (test code 0.1 See_Comment [Aut omated message] The = Basophils #) system which generated this result tra nsmitted reference range : <=0.2. The reference r leo was not used to int erpret this result as normal/abnormal . [facility] ZCJXRGG8136-88-[facility] 05:53:00 Test Item Value Reference Range Interpretation Comments Ca Ion WB (test code = Ca Ion WB) 1.24 1.05-1.25 [facility] SaultC3DNAPRISMA HEALTH GREER MEM[facility]IAL HOSPITALSXRPKGU6738-89-20 05:53:00 Test Item Value Reference Range Interpretation Comments Ca Norm WB (test code = Ca Norm WB) 1.25 1.05-1.25 [facility] [employer] [id number] 10:09:00 Test Item Value Reference Range Interpretation Comments ALT (test code = ALT) 49 See_Comment [Auto mated message] The system which ge nerated this result transmit rohit reference range : <=65. The reference range was not used to interpr et this result as reji l/abnormal. [facility] [employer] [id number] 10:09:00 Test Item Value Reference Range Interpretation Comments Albumin Lvl (test code = Albumin Lvl) 2.8 3.5-5.0 [facility] [employer] [id number] 10:09:00 Test Item Value Reference Range Interpretation Comments Alk Phos (test code = Alk Phos) 41 39-136 [facility] [employer] [id number] 10:09:00 Test Item Value Reference Range Interpretation Comments Bili Direct (test code 0.2 See_Comment [Aut omated message] The = Bili Direct) system which generated this result tra nsmitted reference range : <=0.3. The reference r leo was not used to int erpret this result as reji l/abnormal. [facility] [employer] [id number] 10:09:00 Test Item Value Reference Range Interpretation Comments Bili Total (test code = Bili Total) 0.6 0.2-1.3 [facility] SouthnothingGrinder [id number] 10:09:00 Test Item Value Reference Range Interpretation Comments Bili Indirect (test 0.4 See_Comment [Automa rohit message] The code = Bili Indirect) system which generated this result tra nsmitted reference range : <=1.0. The reference r leo was not used to int erpret this result as normal/abnormal . [facility] SouthnothingGr[facility] [id number] 10:09:00 Test Item Value Reference Range Interpretation Comments Total Protein (test code = Total 5.6 6.4-8.4 Protein) [facility] SouthnothingGr[facility] [id number] 10:09:00 Test Item Value Reference Range Interpretation Comments AST (test code = AST) 33 See_Comment [Auto mated message] The system which ge nerated this result transmit rohit reference range : <=37. The reference range was not used to interpr et this result as reji l/abnormal. [facility] Southnothing[facility] [id number] 10:09:00 Test Item Value Reference Range Interpretation Comments Globulin (test code = Globulin) 2.8 2.7-4.2 [facility] SouthnothingGr[facility] [id number] 10:09:00 Test Item Value Reference Range Interpretation Comments A/G Ratio (test code = A/G Ratio) 1.0 1 0.7-1.6 [facility] SouthnothingGr[facility] [id number] 10:09:00 Test Item Value Reference Range Interpretation Comments Amylase Lvl (test code = Amylase Lvl) 19 25-115 [facility] SouthnothingGr[facility] [id number] 10:09:00 Test Item Value Reference Range Interpretation Comments Lipase Lvl (test code = Lipase Lvl) no gt 73-393 [facility] CenterMaabrvfNLSWLTGFXY6871-14-55 10:09:00 Test Item Value Reference Range Interpretation Comments PTT (test code = PTT) 41.4 s 22.9-35.8 [facility] CenterQqnarkvQWYOTWWQHA4976-93-93 10:09:00 Test Item Value Reference Range Interpretation Comments PT (test code = PT) 15.4 s 12.0-14.7 [facility] SouthLqbwwqyHMCMSGVRAY5295-40-91 10:09:00 Test Item Value Reference Range Interpretation Comments INR (test code = INR) 1.24 1 0.85-1.17 [facility] CenterKgjvktzEAGEIVLWJO0864-51-97 10:09:00 Test Item Value Reference Range Interpretation Comments Fibrinogen Lvl (test code = Fibrinogen 312 230-510 Lvl) [facility] CenterKuverkgIVJFJOBQBI8708-51-58 10:09:00 Test Item Value Reference Range Interpretation Comments Thrombin Time (test code = Thrombin 16.6 s 15.0-21.2 Time) [facility] CenterHdugktcRLFJAWGKRZ8626-92-00 10:09:00 Test Item Value Reference Range Interpretation Comments D-Dimer (test code = D-Dimer) 4.91 [facility] CenterAwcbsrpXGTVNXWHRH6910-80-49 10:09:00 Test Item Value Reference Range Interpretation Comments Basophils # (test code 0.1 See_Comment [Aut omated message] The = Basophils #) system which generated this result tra nsmitted reference range : <=0.2. The reference r leo was not used to int erpret this result as normal/abnormal . [facility] [id number] 10:09:00 Test Item Value Reference Range Interpretation Comments Hgb A1C (test code = Hgb A1C) 5.6 [facility] CenterCHEM [id number] 09:07:00 Test Item Value Reference Range Interpretation Comments Amylase Lvl (test code = Amylase Lvl) 4 25-115 [facility] CenterVrtogecOZHAORUBHO9693-96-40 09:07:00 Test Item Value Reference Range Interpretation Comments Thrombin Time (test code = Thrombin 18.0 s 15.0-21.2 Time) [facility] CenterYjvpfjiFMJOURZCGL5326-31-88 09:07:00 Test Item Value Reference Range Interpretation Comments PT (test code = PT) 24.6 s 12.0-14.7 [facility] CenterOxkevsnKLRRGRYODM9607-13-86 09:07:00 Test Item Value Reference Range Interpretation Comments INR (test code = INR) 2.31 1 0.85-1.17 [facility] CenterIdlqhazUGOASYQOTA8817-86-38 09:07:00 Test Item Value Reference Range Interpretation Comments PTT (test code = PTT) 57.5 s 22.9-35.8 [facility] CenterXnhixqnSIKFEZRLNM2413-59-07 09:07:00 Test Item Value Reference Range Interpretation Comments Fibrinogen Lvl (test code = Fibrinogen 125 230-510 Lvl) [facility] CenterXgmbtzaDMNBLMWOOP7510-07-50 09:07:00 Test Item Value Reference Range Interpretation Comments D-Dimer (test code = D-Dimer) 2.28 [facility] CenterBL[facility] HURNXQZ4904-06-24 04:52:00 Test Item Value Reference Range Interpretation Comments RBC product (test code Product available = RBC product) (01/21/21 11:52 PM) [facility] SouthannCARDIAC [id number] 00:38:00 Test Item Value Reference Range Interpretation Comments Troponin-I (test code no gt See_Comment [Auto mated message] The = Troponin-I) system which g enerated this result transmit rohit reference range : <=0.40. The reference r leo was not used to interpr et this result as reji l/abnormal. [facility] [employer] [id number] 17:47:00 Test Item Value Reference Range Interpretation Comments BNP (test code = BNP) 2324 [facility] SouthannCARHappy KidzAC [id number] 17:47:00 Test Item Value Reference Range Interpretation Comments Troponin-I (test code 0.02 See_Comment [Auto mated message] The = Troponin-I) system which g enerated this result transmit rohit reference range : <=0.40. The reference r leo was not used to interpr et this result as reji l/abnormal. [facility] GxgpyhgPAGIZKSBSY0099-01-22 17:47:00 Test Item Value Reference Range Interpretation Comments Hep Bs Ag (test code Negative *NA*(01/21/21 = Hep Bs Ag) 12:47 PM) [facility] [employer] [id number] 17:43:00 Test Item Value Reference Range Interpretation Comments B/C Ratio (test code = B/C Ratio) 5 1 6-25 [facility] [employer] [id number] 17:43:00 Test Item Value Reference Range Interpretation Comments ALT (test code = ALT) 66 See_Comment [Auto mated message] The system which ge nerated this result transmit rohit reference range : <=65. The reference range was not used to interpr et this result as reji l/abnormal. [facility] [employer] [id number] 17:43:00 Test Item Value Reference Range Interpretation Comments Albumin Lvl (test code = Albumin Lvl) 3.0 3.5-5.0 [facility] [employer] [id number] 17:43:00 Test Item Value Reference Range Interpretation Comments Alk Phos (test code = Alk Phos) 40 39-136 [facility] [employer] [id number] 17:43:00 Test Item Value Reference Range Interpretation Comments Bili Total (test code = Bili Total) 0.5 0.2-1.3 [facility] [employer] [id number] 17:43:00 Test Item Value Reference Range Interpretation Comments Total Protein (test code = Total 5.7 6.4-8.4 Protein) [facility] [employer] [id number] 17:43:00 Test Item Value Reference Range Interpretation Comments AST (test code = AST) 52 See_Comment [Auto mated message] The system which ge nerated this result transmit rohit reference range : <=37. The reference range was not used to interpr et this result as reji l/abnormal. [facility] [employer] [id number] 17:43:00 Test Item Value Reference Range Interpretation Comments Globulin (test code = Globulin) 2.7 2.7-4.2 [facility] [employer] [id number] 17:43:00 Test Item Value Reference Range Interpretation Comments A/G Ratio (test code = A/G Ratio) 1.1 1 0.7-1.6 [facility] [employer] [id number] 17:43:00 Test Item Value Reference Range Interpretation Comments Lactic Acid Lvl (test code = Lactic 1.1 0.5-2.2 Acid Lvl) [facility] SouthSMRxT [id number] 16:20:00 Test Item Value Reference Range Interpretation Comments ABO/Rh (test code = ABO/Rh) B POS [facility] [id number] 16:20:00 Test Item Value Reference Range Interpretation Comments Antibody Scrn (test Negative (01/21/21 11:20 code = Antibody Scrn) AM) [facility] CenterYprdnrnNGADWLKTCY4219-18-27 16:20:00 Test Item Value Reference Range Interpretation Comments Anisocyte (test code = 1+ *ABN*(01/21/21 Anisocyte) 11:20 AM) [facility] [id number] 15:35:00 Test Item Value Reference Range Interpretation Comments Lactase Lvl (test code = Lactase Lvl) 2.0 [facility] [facility] [id number] 15:35:00 Test Item Value Reference Range Interpretation Comments Sucrase Lvl (test code = Sucrase Lvl) 38.6 [facility] [id number] 15:35:00 Test Item Value Reference Range Interpretation Comments Maltase Lvl (test code = Maltase Lvl) 177.2 [facility] [id number] 15:35:00 Test Item Value Reference Range Interpretation Comments Palatinase Lvl (test code = Palatinase 13.8 Lvl) [facility] SouthUclmdttVIRRJENSYDJY4950-00-95 13:21:00 Test Item Value Reference Range Interpretation Comments Potassium WB (test code = Potassium WB) 5.1 3.5-5.1 [facility] CenterG[id number] 13:21:00 Test Item Value Reference Range Interpretation Comments S Preg (test code = S Negative 8*NA*(01/21/21 Preg) 8:21 AM) [facility] [id number] 11:19:00 Test Item Value Reference Range Interpretation Comments Coronavirus (COVID-19) Not Detected (01/21/21 EMANUEL (test code = 6:19 AM) Coronavirus (COVID-19) EMANUEL) [facility] Rtnxqmz7156-30-23 16:39:05 Test Item Value Reference Range Interpretation Comments Glucose POC (test 183 mg/dL 70-115 H If you con cancer program coordinator your code = Glucose POC) patient critically ill, the Merlin-Accu Check Infrom II meter should not be used for Glucose determination. Draw a venous Glucose and send to the main Lab for analysis. Urine [id number] 11:32:13 Test Item Value Reference Range Interpretation [...] Escherichia coli C Urine Added by GL_SJM_UA_CUL_INDPOC Lyoprtr8395-17-61 07:52:10 Test Item Value Reference Range Interpretation Comments Glucose POC (test 160 mg/dL 70-115 H If you con cancer program coordinator your code = Glucose POC) patient critically ill, the Merlin-Accu Check Infrom II meter should not be used for Glucose determination. Draw a venous Glucose and send to the main Lab for analysis. POC [id number] 19:32:05 Test Item Value Reference Range Interpretation Comments Glucose POC (test 184 mg/dL 70-115 H If you con cancer program coordinator your code = Glucose POC) patient critically ill, the Merlin-Accu Check Infrom II meter should not be used for Glucose determination. Draw a venous Glucose and send to the main Lab for analysis. POC [id number] 17:16:35 Test Item Value Reference Range Interpretation Comments Glucose POC (test 281 mg/dL 70-115 H Notify RN or MDIf you code = Glucose POC) consider your patient critically ill, the Merlin-Accu Chec k Infrom II meter should not be used for Glucos e determination. Draw a venous Glucose and send to the main Lab for analysis. POC [id number] 12:00:38 Test Item Value Reference Range Interpretation Comments Glucose POC (test 138 mg/dL 70-115 H Notify RN or MDIf you code = Glucose POC) consider your patient critically ill, the Merlin-Accu Chec k Infrom II meter should not be used for Glucos e determination. Draw a venous Glucose and send to the main Lab for analysis. POC [id number] 07:41:32 Test Item Value Reference Range Interpretation Comments Glucose POC (test 206 mg/dL 70-115 H Notify RN or MDIf you code = Glucose POC) consider your patient critically ill, the Merlin-Accu Chec k Infrom II meter should not be used for Glucos e determination. Draw a venous Glucose and send to the main Lab for analysis. Urinalysis Nrpwgayendz1903-05-26 21:07:21 Test Item Value Reference Range Interpretation Comments UA WBC (test code = UA WBC) TNTC 0-5 A UA RBC (test code = UA RBC) 6-10 0-5 A UA Bacteria (test code = UA Bacteria) Profuse A UA Squam Epithelial (test code = UA 6-10 A Squam Epithelial) Urinalysis with Culture, if [id number] 20:35:14 Test Item Value Reference Range Interpretation [...] Micro Indicated Not Indicated A Ind?) POC [id number] 19:06:34 Test Item Value Reference Range Interpretation Comments Glucose POC (test 207 mg/dL 70-115 H If you con cancer program coordinator your code = Glucose POC) patient critically ill, the Merlin-Accu Check Infrom II meter should not be used for Glucose determination. Draw a venous Glucose and send to the main Lab for analysis. POC [id number] 17:12:03 Test Item Value Reference Range Interpretation Comments Glucose POC (test 173 mg/dL 70-115 H Notify RN or MDIf you code = Glucose POC) consider your patient critically ill, the Merlin-Accu Chec k Infrom II meter should not be used for Glucos e determination. Draw a venous Glucose and send to the main Lab for analysis. POC [id number] 11:58:01 Test Item Value Reference Range Interpretation Comments Glucose POC (test 289 mg/dL 70-115 H Notify RN or MDIf you code = Glucose POC) consider your patient critically ill, the Merlin-Accu Chec k Infrom II meter should not be used for Glucos e determination. Draw a venous Glucose and send to the main Lab for analysis. POC [id number] 08:19:37 Test Item Value Reference Range Interpretation Comments Glucose POC (test 201 mg/dL 70-115 H Notify RN or MDIf you code = Glucose POC) consider your patient critically ill, the Merlin-Accu Chec k Infrom II meter should not be used for Glucos e determination. Draw a venous Glucose and send to the main Lab for analysis. POC [id number] 20:37:35 Test Item Value Reference Range Interpretation Comments Glucose POC (test 272 mg/dL 70-115 H If you con cancer program coordinator your code = Glucose POC) patient critically ill, the Merlin-Accu Check Infrom II meter should not be used for Glucose determination. Draw a venous Glucose and send to the main Lab for analysis. POC [id number] 17:23:05 Test Item Value Reference Range Interpretation Comments Glucose POC (test 229 mg/dL 70-115 H If you con cancer program coordinator your code = Glucose POC) patient critically ill, the Merlin-Accu Check Infrom II meter should not be used for Glucose determination. Draw a venous Glucose and send to the main Lab for analysis. POC [id number] 12:01:01 Test Item Value Reference Range Interpretation Comments Glucose POC (test 155 mg/dL 70-115 H If you con cancer program coordinator your code = Glucose POC) patient critically ill, the Merlin-Accu Check Infrom II meter should not be used for Glucose determination. Draw a venous Glucose and send to the main Lab for analysis. POC [id number] 08:07:32 Test Item Value Reference Range Interpretation Comments Glucose POC (test 248 mg/dL 70-115 H If you con cancer program coordinator your code = Glucose POC) patient critically ill, the Merlin-Accu Check Infrom II meter should not be used for Glucose determination. Draw a venous Glucose and send to the main Lab for analysis. IG [id number] 06:50:39 Test Item Value Reference Range Interpretation Comments IG (test code = IG) 0.7 % 0.0-5.0 IG Abs (test code = IG Abs) 0 x10 N Complete Blood Count with Nbikvvpbqkgk0553-34-22 06:50:38 Test Item Value Reference Range Interpretation [...] code = IPF) 0 % N Automated Ctuyhuabvzio7928-23-02 06:50:38 Test Item Value Reference Range Interpretation Comments Neutro Auto (test code = Neutro 50.3 % 36.0-70.0 Auto) Lymph Auto (test code = Lymph Auto) 38.6 % 12.0-44.0 [place] Auto (test code = [place] Auto) 7.3 % 0.0-11.0 Eos, Auto (test code = Eos, Auto) 2.4 % 0.0-7.0 Basophil Auto (test code = Basophil 0.7 % 0.0-2.0 Auto) Neutro Absolute (test code = Neutro 3.0 x10 1.6-7.4 Absolute) Lymph Absolute (test code = Lymph 2.28 x10 .50-4.60 Absolute) [place] Absolute (test code = [place] .43 x10 .00-1.20 Absolute) Eos Absolute (test code = Eos 0.14 x10 0.00-0.74 Absolute) Baso Absolute (test code = Baso 0.04 x10 0.00-0.21 Absolute) Basic Metabolic [id number] 05:38:20 Test Item Value Reference Range Interpretation [...] = Lipemia) 0 mg/dL 8-11 Basic Metabolic [id number] 05:38:20 Test Item Value Reference Range Interpretation [...] = 0 mg/dL 8-11 Lipemia) Basic Metabolic [id number] 05:38:20 Test Item Value Reference Range Interpretation [...] ag e have not been validated by [facility] MDRD study and should be [...] ag e have not been validated by [facility] MDRD study and should be [...] code = 0 mg/dL 8-11 Lipemia) POC [id number] 20:28:33 Test Item Value Reference Range Interpretation Comments Glucose POC (test 169 mg/dL 70-115 H If you con cancer program coordinator your code = Glucose POC) patient critically ill, the Merlin-Accu Check Infrom II meter should not be used for Glucose determination. Draw a venous Glucose and send to the main Lab for analysis. POC [id number] 16:39:30 Test Item Value Reference Range Interpretation Comments Glucose POC (test 103 mg/dL 70-115 If you con cancer program coordinator your code = Glucose POC) patient critically ill, the Merlin-Accu Check Infrom II meter should not be used for Glucose determination. Draw a venous Glucose and send to the main Lab for analysis. RPR [id number] 12:08:56 Test Item Value Reference Range Interpretation Comments RPR Qual (test code = RPR Qual) Non-Reactive Non-Reactive Reactive Control (test code = Reactive Reactive Control) Weak Reactive Control (test Weak Reactive code = Weak Reactive Control) Non-Reactive Control (test code Non-Reactive = Non-Reactive Control) Lot # (test code = Lot #) [id number] N Expiration Dt (test code = 03-20-2021 N Expiration Dt) POC [id number] 11:52:31 Test Item Value Reference Range Interpretation Comments Glucose POC (test 250 mg/dL 70-115 H If you con cancer program coordinator your code = Glucose POC) patient critically ill, the Merlin-Accu Check Infrom II meter should not be used for Glucose determination. Draw a venous Glucose and send to the main Lab for analysis. POC Iuzhbqs5961-18-00 07:55:29 Test Item Value Reference Range Interpretation Comments Glucose POC (test 205 mg/dL 70-115 H If you con cancer program coordinator your code = Glucose POC) patient critically ill, the Merlin-Accu Check Infrom II meter should not be used for Glucose determination. Draw a venous Glucose and send to the main Lab for analysis. Lipid [id number] 05:46:04 Test Item Value Reference Range Interpretation [...] LDL/HDL Ratio=L DL Calc/HDL Chol Thyroid Stimulating [id number] 05:46:04 Test Item Value Reference Range Interpretation Comments TSH (test code = TSH) 3.274 mcIU/mL 0.550-4.780 Hemoglobin [id number] 05:41:08 Test Item Value Reference Range Interpretation Comments Hemoglobin A1c (test code 7.6 % 4.0-5.8 H Di abetic >=6.5 = Hemoglobin A1c) %Prediabet es 5.7-6.4 %Normal <5.7 % Hepatitis B Surface [id number] 21:19:36 Test Item Value Reference Range Interpretation Comments Hep Bs Ag (test code = Hep Bs Non-Reactive Non-Reactive Ag) Novel Coronavirus SARS-CoV-2, [id number] 11:16:16 Test Item Value Reference Range Interpretation [...] Emergency Use Authorization." Novel Coronavirus (COVID-19), EMANUEL [id number] 11:11:24TNPTest not sent and performed at [facility]Rapid was perfomed in Microbiology.Wrong covid test was ord ered.Urine DOA [id number] 00:17:49 Test Item Value Reference Range Interpretation [...] Propoxyphene Confirmation wi thin 7 days. Alcohol [id number] 00:17:29 Test Item Value Reference Range Interpretation Comments Ethanol Level 9.0 mg/dL N The pharmacolo gical (test code = response to blo od alcohol Ethanol Level) levels may va ry from individual to i ndividual. The fatal omkar ntration has been report ed to be >400 mg/dl. Comprehensive Metabolic [id number] 00:17:28 Test Item Value Reference Range Interpretation [...] = Lipemia) 0 g/dL 1-2 Comprehensive Metabolic [id number] 00:17:28 Test Item Value Reference Range Interpretation [...] = 0 g/dL 1-2 Lipemia) Comprehensive Metabolic [id number] 00:17:28 Test Item Value Reference Range Interpretation [...] ag e have not been validated by [facility] MDRD study and should be [...] ag e have not been validated by [facility] MDRD study and should be [...] g/dL 1-2 Lipemia) Complete Blood Count with [id number] 23:26:28 Test Item Value Reference Range Interpretation [...] code = IPF) 0 % N Automated [id number] 23:26:28 Test Item Value Reference Range Interpretation Comments Neutro Auto (test code = Neutro 67.1 % 36.0-70.0 Auto) Lymph Auto (test code = Lymph Auto) 23.3 % 12.0-44.0 [place] Auto (test code = [place] Auto) 5.8 % 0.0-11.0 Eos, Auto (test code = Eos, Auto) 2.3 % 0.0-7.0 Basophil Auto (test code = Basophil 0.8 % 0.0-2.0 Auto) Neutro Absolute (test code = Neutro 6.0 x10 1.6-7.4 Absolute) Lymph Absolute (test code = Lymph 2.10 x10 .50-4.60 Absolute) [place] Absolute (test code = [place] .52 x10 .00-1.20 Absolute) Eos Absolute (test code = Eos 0.21 x10 0.00-0.74 Absolute) Baso Absolute (test code = Baso 0.07 x10 0.00-0.21 Absolute) IG [id number] 23:26:28 Test Item Value Reference Range Interpretation Comments IG (test code = IG) 0.7 % 0.0-5.0 IG Abs (test code = IG Abs) 0 x10 N HERPES VIRUS ANTIBODY, [id number] 21:46:00 Test Item Value Reference Range Interpretation Comments HERPES VIRUS IGM (BEAKER) Negative SE E ATTACHMENT (test code = 1808) BLOOD [id number] 06:00:00 Test Item Value Reference Range Interpretation Comments CULTURE (BEAKER) (test No growth in 5 days code = 1095) BLOOD [id number] 06:00:00 Test Item Value Reference Range Interpretation Comments CULTURE (BEAKER) (test No growth in 5 days code = 1095) POCT-GLUCOSE [id number] 12:11:00 Test Item Value Reference Range Interpretation Comments POC-GLUCOSE METER 154 mg/dL 70-[address] [facility] [address] (BEAKER) (test code = [facility] 1538) [address] POCT-GLUCOSE [id number] 07:53:00 Test Item Value Reference Range Interpretation Comments POC-GLUCOSE METER 87 mg/dL 70-110 TESTED AT [place] [address] ([facility] (test code = [facility] [address] 1538) POCT-GLUCOSE [id number] 06:49:00 Test Item Value Reference Range Interpretation Comments POC-GLUCOSE METER 79 mg/dL 70-110 TESTED AT [place] [address] (BEAKER) (test code = [facility] [address] 1538) COMPREHENSIVE METABOLIC [id number] 06:15:00 Test Item Value Reference Range Interpretation [...] S NOT APPLICABLE FOR DIALYSIS PATIEN TS. [id number] 06:11:00 Test Item Value Reference Range Interpretation Comments MAGNESIUM (BEAKER) (test code = 2.1 mg/dL 1.6-2.6 627) HEPATIC FUNCTION [id number] 06:11:00 Test Item Value Reference Range Interpretation [...] code = 513 U/L 6-55 H 347) [id number] 05:30:00 Test Item Value Reference Range Interpretation Comments FIBRINOGEN LEVEL (BEAKER) (test 368 mg/dl 225-434 code = 658) [id number] 05:30:00 Test Item Value Reference Range Interpretation Comments PARTIAL THROMBOPLASTIN TIME 42.2 seconds 22.5-36.0 H (BEAKER) (test code = 760) PROTHROMBIN [id number] 05:29:00 Test Item Value Reference Range Interpretation [...] 2.5-3.5 for patients with mechanical heart valves.POCT-GLUCOSE [id number] 21:09:00 Test Item Value Reference Range Interpretation Comments POC-GLUCOSE METER 178 mg/dL 70-110 H TESTED AT [place] [address] ([facility]) (test code = [facility] 1538) [address] POCT-GLUCOSE [id number] 17:18:00 Test Item Value Reference Range Interpretation Comments POC-GLUCOSE METER 178 mg/dL 70-110 H TESTED AT [place] [address] ([facility]) (test code = [facility] 1538) [address] POCT-GLUCOSE [id number] 13:48:00 Test Item Value Reference Range Interpretation Comments POC-GLUCOSE METER 150 mg/dL 70-110 H TESTED AT [place] [address] ([facility]) (test code = [facility] 1538) [address] FACTOR 5 ACTIVITY (BLEEDING RISK)2017-01-06 10:04:00 Test Item Value Reference Range Interpretation Comments FACTOR V ACTIVITY ([facility]) (test code 90.0 % 60.0-150.0 = 665) Effective 10/24/2013: Reference Range Change-Adult onlyNew: 60.0-150.0 Previous: 50.0-150.0CYTOMEGALOVIRUS ANTIBODY, [id number] 09:42:00 Test Item Value Reference Range Interpretation Comments CYTOMEGALOVIRUS IGM ANTIBODY Negative ([employer]) (test code = 816) HERPES VIRUS ANTIBODY, [id number] 08:59:00 Test Item Value Reference Range Interpretation Comments 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[facility]) (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 G 1807) CYTOMEGALOVIRUS ANTIBODY, [id number] 08:59:00 Test Item Value Reference Range Interpretation Comments CYTOMEGALOVIRUS IGG ANTIBODY Positive ([facility]) (test code = 790) EBV-VCA ANTIBODY, [id number] 08:59:00 Test Item Value Reference Range Interpretation Comments JASE-WALL VCA IGG (BEAKER) (test Positive code = 983) EBV-VCA ANTIBODY, [id number] 08:59:00 Test Item Value Reference Range Interpretation Comments JASE-WALL VCA IGM (BEAKER) (test Negative code = 984) POCT-GLUCOSE [id number] 07:59:00 Test Item Value Reference Range Interpretation Comments POC-GLUCOSE METER 81 mg/dL 70-[address] [facility] [address] (BEAKER) (test code = [place] [id number] 9118) COMPREHENSIVE METABOLIC [id number] 06:23:00 Test Item Value Reference Range Interpretation [...] S NOT APPLICABLE FOR DIALYSIS PATIEN TS. [id number] 06:17:00 Test Item Value Reference Range Interpretation Comments MAGNESIUM (BEAKER) (test code = 1.8 mg/dL 1.6-2.6 627) HEPATIC FUNCTION [id number] 06:17:00 Test Item Value Reference Range Interpretation [...] code = 779 U/L 6-55 H 347) [id number] 06:00:00 Test Item Value Reference Range Interpretation Comments FIBRINOGEN LEVEL (BEAKER) (test 390 mg/dl 225-434 code = 658) [id number] 06:00:00 Test Item Value Reference Range Interpretation Comments PARTIAL THROMBOPLASTIN TIME 40.2 seconds 22.5-36.0 H (BEAKER) (test code = 760) PROTHROMBIN [id number] 05:59:00 Test Item Value Reference Range Interpretation Comments PROTIME (BEAKER) (test code = 14.6 seconds 11.7-14.7 759) INR (BEAKER) (test code = 370) 1.2 <=5.9 RECOMMENDED COUMADIN/WARFARIN INR THERAPY RANGESSTANDARD DOSE: 2.0 - 3.0 Includes: PROPHYLAXIS for venous thrombosis, systemic embolization; TREATMENT for venous thrombosis and/or pulmonary embolus.HIGH RISK: Target INR is 2.5-3.5 for patients with mechanical heart valves.POCT-GLUCOSE [id number] 21:46:00 Test Item Value Reference Range Interpretation Comments POC-GLUCOSE METER 153 mg/dL 70-110 H TESTED AT [place] [address] (BEAKER) (test code = [place] [facility] 1538) [address] POCT-GLUCOSE [id number] 18:47:00 Test Item Value Reference Range Interpretation Comments POC-GLUCOSE METER 181 mg/dL 70-110 H TESTED AT [place] [address] (BEAKER) (test code = [place] [facility] 1538) [address] POCT-GLUCOSE [id number] 12:40:00 Test Item Value Reference Range Interpretation Comments POC-GLUCOSE METER 178 mg/dL 70-110 H TESTED AT [place] [address] (BEAKER) (test code = [place] [facility] 1538) [address] POCT-GLUCOSE [id number] 07:51:00 Test Item Value Reference Range Interpretation Comments POC-GLUCOSE METER 166 mg/dL 70-110 H TESTED AT [place] [address] (BEAKER) (test code = [place] [facility] 1538) [address] COMPREHENSIVE METABOLIC [id number] 03:26:00 Test Item Value Reference Range Interpretation [...] S NOT APPLICABLE FOR DIALYSIS PATIEN TS. [id number] 03:22:00 Test Item Value Reference Range Interpretation Comments MAGNESIUM (BEAKER) (test code = 1.4 mg/dL 1.6-2.6 L 627) HEPATIC FUNCTION [id number] 03:22:00 Test Item Value Reference Range Interpretation [...] code = 1009 U/L 6-55 H 347) [id number] 03:12:00 Test Item Value Reference Range Interpretation Comments AMMONIA (BEAKER) (test code = 348) 29 mol/L 18-72 [id number] 03:10:00 Test Item Value Reference Range Interpretation Comments PARTIAL THROMBOPLASTIN TIME 42.3 seconds 22.5-36.0 H (BEAKER) (test code = 760) PROTHROMBIN [id number] 03:09:00 Test Item Value Reference Range Interpretation Comments PROTIME (BEAKER) (test code = 16.4 seconds 11.7-14.7 H 759) INR (BEAKER) (test code = 370) 1.3 <=5.9 RECOMMENDED COUMADIN/WARFARIN INR THERAPY RANGESSTANDARD DOSE: 2.0 - 3.0 Includes: PROPHYLAXIS for venous thrombosis, systemic embolization; TREATMENT for venous thrombosis and/or pulmonary embolus.HIGH RISK: Target INR is 2.5-3.5 for patients with mechanical heart valves.[id number] 03:09:00 Test Item Value Reference Range Interpretation Comments FIBRINOGEN LEVEL (BEAKER) (test 413 mg/dl 225-434 code = 658) CBC W/PLT COUNT & AUTO [id number] 03:09:00 Test Item Value Reference Range Interpretation [...] L 0.00-0.20 (test code = 417) 0.00POCT-GLUCOSE [id number] 22:33:00 Test Item Value Reference Range Interpretation Comments POC-GLUCOSE METER 230 mg/dL 70-[address] [facility] [address] ([facility] (test code = [place] 1538) [address] POCT-GLUCOSE [id number] 18:17:00 Test Item Value Reference Range Interpretation Comments POC-GLUCOSE METER 222 mg/dL 70-[address] [facility] [address] ([facility]) (test code = [place] 1538) [address] COMPREHENSIVE METABOLIC [id number] 16:59:00 Test Item Value Reference Range Interpretation [...] PATIEN TS. PERIPHERAL BLOOD SMEAR - PATHOLOGIST [id number] 15:30:00 Test Item Value Reference Range Interpretation Comments RBC MORPHOLOGY Polychromasia (BEAKER) (test code = 2846) RBC MORPHOLOGY Anisocytosis (BEAKER) (test code = 10389) PERIPHERAL SMR REVIEW Cell counts confirmed (BEAKER) (test code = 6334) [id number] Josefina Lara M.D. ([facility]) (test code = (electronic signature) 6578) PROTHROMBIN [id number] 15:12:00 Test Item Value Reference Range Interpretation [...] Negative Negative (test code = 418) POCT-GLUCOSE [id number] 12:47:00 Test Item Value Reference Range Interpretation Comments POC-GLUCOSE METER 212 mg/dL 70-[address] [facility] [address] ([facility] (test code = [place] 1538) [address] [id number] 12:34:00 Test Item Value Reference Range Interpretation Comments RPR SCREEN ([facility] (test code = Nonreactive Nonreactive 420) CLOSTRIDIUM DIFFICILE TOXIN [id number] 10:12:00 Test Item Value Reference Range Interpretation Comments CLOSTRIDIUM DIFFICILE TOXIN, PCR Not Detected Not Detected ([employer]) (test code = 1525) This qualitative real-time [...] Reference Range Change-Adult onlyNew: 60.0-150.0 Previous: 50.0-150.0POCT-GLUCOSE [id number] 06:40:00 Test Item Value Reference Range Interpretation Comments POC-GLUCOSE METER 167 mg/dL 70-[address] [facility] [address] ([employer]) (test code = [place] 1538) [address] COMPREHENSIVE METABOLIC [id number] 04:08:00 Test Item Value Reference Range Interpretation Comments TOTAL PROTEIN 4.7 gm/dL 6.0-8.3 L ([employer]) (test code = 770) ALBUMIN ([employer]) 2.1 g/dL 3.5-5.0 L (test code = [...] ESTIM ATED GFR. Specimen slightly ictericHEPATIC FUNCTION [id number] 04:06:00 Test Item Value Reference Range Interpretation [...] 1091 U/L 6-55 H 347) Specimen slightly [id number] 04:01:00 Test Item Value Reference Range Interpretation Comments FIBRINOGEN LEVEL (BEAKER) (test 379 mg/dl 225-434 code = 658) [id number] 04:01:00 Test Item Value Reference Range Interpretation Comments PARTIAL THROMBOPLASTIN TIME 40.7 seconds 22.5-36.0 H (BEAKER) (test code = 760) PROTHROMBIN [id number] 04:00:00 Test Item Value Reference Range Interpretation [...] mechanical heart valves.CBC W/PLT COUNT & AUTO [id number] 03:56:00 Test Item Value Reference Range Interpretation [...] L 0.00-0.20 (test code = 417) 0.00POCT-GLUCOSE [id number] 00:19:00 Test Item Value Reference Range Interpretation Comments POC-GLUCOSE METER 159 mg/dL 70-110 H TESTED AT [place] [address] ([facility]) (test code = [facility] 1538) [address] POCT-GLUCOSE [id number] 18:56:00 Test Item Value Reference Range Interpretation Comments POC-GLUCOSE METER 192 mg/dL 70-110 H TESTED AT [place] [address] ([facility]) (test code = [facility] 1538) [address] COMPREHENSIVE METABOLIC [id number] 16:55:00 Test Item Value Reference Range Interpretation [...] CALCULATE ESTIM ATED GFR. Specimen slightly ictericPROTHROMBIN TIME/[id number] 16:37:00 Test Item Value Reference Range Interpretation Comments PROTIME (BEAKER) (test code = 20.9 seconds 11.7-14.7 H 759) INR (BEAKER) (test code = 370) 1.8 <=5.9 RECOMMENDED COUMADIN/WARFARIN INR THERAPY RANGESSTANDARD DOSE: 2.0 - 3.0 Includes: PROPHYLAXIS for venous thrombosis, systemic embolization; TREATMENT for venous thrombosis and/or pulmonary embolus.HIGH RISK: Target INR is 2.5-3.5 for patients with mechanical heart valves.HEPATITIS B SURFACE [id number] 14:05:00 Test Item Value Reference Range Interpretation Comments HEPATITIS B SURFACE ANTIBODY < mIU/mL <8.0 (BEAKER) (test code = 647) HEPATITIS B CORE ANTIBODY, [id number] 13:43:00 Test Item Value Reference Range Interpretation Comments HEPATITIS B CORE TOTAL ANTIBODY Nonreactive Nonreactive (BEAKER) (test code = 497) BLOOD GAS, [id number] 13:35:00 Test Item Value Reference Range Interpretation [...] code = 1819) 28.0 % URINALYSIS W/ [id number] 13:16:00 Test Item Value Reference Range Interpretation [...] 1584) SOURCE(BEAKER) (test code = Urine, [place] 9126) VITAMIN D, 49-[id number] 13:14:00 Test Item Value Reference Range Interpretation Comments VITAMIN D 25-OH (BEAKER) (test code = < ng/mL 13.0-47.8 L 2764) ALPHA FETOPROTEIN (AFP), TUMOR [id number] 13:06:00 Test Item Value Reference Range Interpretation Comments ALPHA-FETOPROTEIN (BEAKER) (test code < ng/mL <10.0 = 1094) Effective 05/08/2014: Reference Range ChangeNew: <10.0 Previous: 0.0-8.0 HEMOGLOBIN [id number] 13:05:00 Test Item Value Reference Range Interpretation Comments HEMOGLOBIN A1C (BEAKER) (test code = 7.6 % 4.3-6.1 H 368) CARCINOEMBRYONIC ANTIGEN (CEA)2017-01-03 12:59:00 Test Item Value Reference Range Interpretation Comments CARCINOEMBRYONIC ANTIGEN (BEAKER) 2.0 ng/mL 0.0-5.0 (test code = 685) [id number] 12:59:00 Test Item Value Reference Range Interpretation Comments FERRITIN (BEAKER) (test code = 1841 ng/mL 5-275 H 361) Effective 05/08/2014: Reference Range ChangeNew: Male 5-275 Previous: Male 22- 322 Female 5-275 Female [id number] 12:58:00 Test Item Value Reference Range Interpretation Comments T4 TOTAL (BEAKER) (test code = 895) 4.5 ug/dL 4.9-11.7 L [id number] 12:58:00 Test Item Value Reference Range Interpretation Comments THYROID STIMULATING HORMONE 1.79 uIU/mL 0.35-4.94 (BEAKER) (test code = 772) [id number] 12:58:00 Test Item Value Reference Range Interpretation Comments T3 TOTAL (BEAKER) (test code = 656) 34 ng/dL 48-159 L Effective 05/08/2014: Reference Range ChangeNew: 48-159 Previous: 60-181CALCIUM, [id number] 12:47:00 Test Item Value Reference Range Interpretation Comments CALCIUM IONIZED (BEAKER) (test 1.05 mmol/L 1.12-1.27 L code = 698) PH, BLOOD (BEAKER) (test code = 7.43 1810) [id number] 12:42:00 Test Item Value Reference Range Interpretation [...] % 20-55 (test code = 2590) URIC [id number] 12:40:00 Test Item Value Reference Range Interpretation Comments URIC ACID (BEAKER) (test code = 16.0 mg/dL 2.6-7.2 H 773) Specimen slightly ictericLIPID [id number] 12:40:00 Test Item Value Reference Range Interpretation [...] 160-189 Very High >=190 Specimen slightly ictericBILIRUBIN, [id number] 12:40:00 Test Item Value Reference Range Interpretation Comments BILIRUBIN DIRECT (BEAKER) (test 2.4 mg/dL 0.1-0.5 H code = 706) GAMMA GLUTAMYL TRANSFERASE (GGT)2017-01-03 12:40:00 Test Item Value Reference Range Interpretation Comments GAMMA GLUTAMYL TRANSFERASE (BEAKER) 53 U/L 9-64 (test code = 364) Specimen slightly [id number] 12:39:00 Test Item Value Reference Range Interpretation Comments ETHANOL (BEAKER) (test code = 400) < mg/dL <=10 SCREEN, [id number] 12:36:00 Test Item Value Reference Range Interpretation Comments TEST URINE (MADIE) (test Negative code = 583) POCT-GLUCOSE [id number] 12:34:00 Test Item Value Reference Range Interpretation Comments POC-GLUCOSE METER 189 mg/dL 70-[address] [facility] [address] (MADIE) (test code = [place] 1538) [address] HIV-1 ANTIGEN WITH HIV-1/2 [id number] 11:58:00 Test Item Value Reference Range Interpretation Comments HIV-1 ANTIGEN WITH HIV 1\\T\\2 Nonreactive Nonreactive ANTIBODY (2) (MADIE) (test code = 2586) TROPONIN [id number] 09:44:00 Test Item Value Reference Range Interpretation [...] 0.0-4.9CK-MB Reference Range:<6.7 Normal6.7-10.0 Borderline>10.0 Abnormal ACETAMINOPHEN [id number] 08:31:00 Test Item Value Reference Range Interpretation Comments ACETAMINOPHEN LEVEL (BEAKER) (test < ug/mL 10.0-30.0 L code = 344) TROPONIN [id number] 05:53:00 Test Item Value Reference Range Interpretation [...] acute neurological disease, and persistent tachyarrhythmia.BASIC METABOLIC [id number] 05:53:00 Test Item Value Reference Range Interpretation [...] TO CALCULA TE ESTIMATED GFR. Specimen slightly ubolclbMSHESDJQQJ1920-35-79 05:52:00 Test Item Value Reference Range Interpretation Comments PHOSPHORUS (BEAKER) (test code = 5.7 mg/dL 2.3-4.7 H 604) HEPATIC FUNCTION [id number] 05:52:00 Test Item Value Reference Range Interpretation [...] Specimen slightly ictericCREATINE KINASE (CK), TOTAL AND [id number] 05:52:00 Test Item Value Reference Range Interpretation Comments CREATINE KINASE TOTAL (BEAKER) 341 U/L 29-200 H (test code = 380) CREATINE KINASE-MB (BEAKER) (test 5.4 ng/mL 0.0-6.6 code = 750) CREATINE KINASE-MB INDEX (BEAKER) 1.6 % (test code = 395) Effective 05/08/2014: CK-MB Reference Range ChangeNew: 0.0-6.6 Previous: 0.0-4.9CK-MB Reference Range:<6.7 Normal6.7-10.0 Borderline>10.0 Abnormal CBC W/PLT COUNT & AUTO [id number] 05:48:00 Test Item Value Reference Range Interpretation [...] K/ L 0.00-0.20 (test code = 417) 0.36ZZEGCOUZEH9296-04-79 05:09:00 Test Item Value Reference Range Interpretation Comments FIBRINOGEN LEVEL (BEAKER) (test 427 mg/dl 225-434 code = 658) [id number] 05:09:00 Test Item Value Reference Range Interpretation Comments PARTIAL THROMBOPLASTIN TIME 36.2 seconds 22.5-36.0 H (BEAKER) (test code = 760) PROTHROMBIN [id number] 05:08:00 Test Item Value Reference Range Interpretation Comments PROTIME (BEAKER) (test code = 22.8 seconds 11.7-14.7 H 759) INR (BEAKER) (test code = 370) 2.0 <=5.9 RECOMMENDED COUMADIN/WARFARIN INR THERAPY RANGESSTANDARD DOSE: 2.0 - 3.0 Includes: PROPHYLAXIS for venous thrombosis, systemic embolization; TREATMENT for venous thrombosis and/or pulmonary embolus.HIGH RISK: Target INR is 2.5-3.5 for patients with mechanical heart valves.HEPATITIS PANEL, [id number] 03:40:00 Test Item Value Reference Range Interpretation Comments HEPATITIS A IGM ANTIBODY (BEAKER) Nonreactive Nonreactive (test code = 498) HEPATITIS B CORE IGM ANTIBODY Nonreactive Nonreactive (BEAKER) (test code = 645) HEPATITIS C ANTIBODY (BEAKER) Nonreactive Nonreactive (test code = 367) HEPATITIS B SURFACE ANTIGEN (2) Nonreactive Nonreactive (BEAKER) (test code = 2585) CREATININE, RANDOM [id number] 03:18:00 Test Item Value Reference Range Interpretation Comments CREATININE URINE (BEAKER) (test 118.7 mg/dL code = 375) Reference Range: No NormalsSODIUM, RANDOM [id number] 03:18:00 Test Item Value Reference Range Interpretation Comments SODIUM URINE (BEAKER) (test code = 60 meq/L 243) Reference Range: No NormalsUREA NITROGEN, RANDOM [id number] 03:18:00 Test Item Value Reference Range Interpretation Comments UREA NITROGEN URINE (BEAKER) (test 303 mg/dL code = 538) Reference Range: No [id number] 03:07:00 Test Item Value Reference Range Interpretation Comments AMMONIA (BEAKER) (test code = 348) 48 mol/L 18-72 M-[id number] 02:57:00 Test Item Value Reference Range Interpretation [...] within 95-100% range. URINALYSIS W/ REFLEX URINE [id number] 02:53:00 Test Item Value Reference Range Interpretation [...] /LPF = 514) SOURCE(BEAKER) (test code = 5697) [id number] 02:49:00 Test Item Value Reference Range Interpretation Comments PARTIAL THROMBOPLASTIN TIME 39.4 seconds 22.5-36.0 H (BEAKER) (test code = 760) PROTHROMBIN [id number] 02:48:00 Test Item Value Reference Range Interpretation Comments PROTIME (BEAKER) (test code = 22.0 seconds 11.7-14.7 H 759) INR (BEAKER) (test code = 370) 1.9 <=5.9 RECOMMENDED COUMADIN/WARFARIN INR THERAPY RANGESSTANDARD DOSE: 2.0 - 3.0 Includes: PROPHYLAXIS for venous thrombosis, systemic embolization; TREATMENT for venous thrombosis and/or pulmonary embolus.HIGH RISK: Target INR is 2.5-3.5 for patients with mechanical heart valves.[id number] 02:48:00 Test Item Value Reference Range Interpretation Comments FIBRINOGEN LEVEL (BEAKER) (test 421 mg/dl 225-434 code = 658) BLOOD GAS, [id number] 02:43:00 Test Item Value Reference Range Interpretation [...] 21.0 % CBC W/PLT COUNT & AUTO [id number] 02:43:00 Test Item Value Reference Range Interpretation [...] code = 417) 0.00LACTIC ACID, VENOUS, WHOLE [id number] 02:35:00 Test Item Value Reference Range Interpretation Comments LACTATE BLOOD VENOUS (2) (BEAKER) 0.8 mmol/L 0.5-2.2 (test code = 2872) Effective 10/23/2015: Units/Reference Range ChangeNew: 0.5-2.2 mmol/L Previous: 5- 20 mg/dLSpecimen slightly oowifauBPYPSOPXTRKT2430-20-02 11:32:00 Test Item Value Reference Range Interpretation Comments AGAP (test code = AGAP) 14.6 10.0-20.0 [id number] 11:32:00 Test Item Value Reference Range Interpretation Comments eGFR (test code = eGFR) 33 [facility]GojevhnADVUVXILEWJF1623-33-60 11:32:00 Test Item Value Reference Range Interpretation Comments Calcium Lvl (test code = Calcium Lvl) 8.3 8.5-10.5 [facility]SkderxxOUNYWNLGWQQH7445-40-97 11:32:00 Test Item Value Reference Range Interpretation Comments Glucose Lvl (test code = Glucose Lvl) 81 70-99 [facility]AmwtngvDBTQHUGFNNRY7722-61-02 11:32:00 Test Item Value Reference Range Interpretation Comments Creatinine Lvl (test code = Creatinine 1.95 0.50-1.40 Lvl) [facility] HospitalPjltzsiXIUCKGOEHZRE9407-33-48 11:32:00 Test Item Value Reference Range Interpretation Comments BUN (test code = BUN) 55 7-22 [facility] HospitalPphslhhPGFPYIIUFDFU1845-10-43 11:32:00 Test Item Value Reference Range Interpretation Comments CO2 (test code = CO2) 19 24-32 [facility] HospitalUixxcuxJNEJZMLEZLWH1980-35-19 11:32:00 Test Item Value Reference Range Interpretation Comments Chloride Lvl (test code = Chloride Lvl) 110 95-109 [facility] HospitalGgpqrldHPMWFINGQXBC7266-70-53 11:32:00 Test Item Value Reference Range Interpretation Comments Sodium Lvl (test code = Sodium Lvl) 139 135-145 [facility] HospitalVqyoibaTAXSPONZDXJW9049-32-03 11:32:00 Test Item Value Reference Range Interpretation Comments Potassium Lvl (test code = Potassium 4.6 3.5-5.1 Lvl) [facility] CenterGnwfeyvLBGLKIECZO6166-23-27 11:32:00 Test Item Value Reference Range Interpretation Comments Lymphocytes (test code = Lymphocytes) 30.4 20.0-40.0 [facility] CenterAytruisHSBPMGOUYM1000-83-16 11:32:00 Test Item Value Reference Range Interpretation Comments Eosinophils (test code = 4.5 See_Comment [A utomated message] The Eosinophils) system which ge nerated this result tra nsmitted reference range : <=4.0. The reference r leo was not used to int erpret this result as normal/abnormal . [facility] CenterCjvfcpzPLAYDJCRQS4994-83-59 11:32:00 Test Item Value Reference Range Interpretation Comments Monocytes (test code = Monocytes) 13.7 2.0-12.0 [facility] CenterSbswarjIMGUYTIWJO8285-91-14 11:32:00 Test Item Value Reference Range Interpretation Comments Segs-Bands # (test code = Segs-Bands #) 2.6 1.5-8.1 [facility] CenterAlhhdxkIKTGQHOGWK8394-61-73 11:32:00 Test Item Value Reference Range Interpretation Comments Basophils (test code = 0.7 See_Comment [Aut omated message] The Basophils) system which ge nerated this result tra nsmitted reference range : <=1.0. The reference r leo was not used to int erpret this result as normal/abnormal . [facility] CenterAgjowiaMNLRXDGQMJ7516-73-18 11:32:00 Test Item Value Reference Range Interpretation Comments Monocytes # (test code 0.7 See_Comment [Aut omated message] The = Monocytes #) system which generated this result tra nsmitted reference range : <=0.8. The reference r leo was not used to int erpret this result as normal/abnormal . [facility] CenterGivwckcNHUNGEZJSE9581-78-48 11:32:00 Test Item Value Reference Range Interpretation Comments Lymphocytes # (test code = Lymphocytes 1.6 1.0-5.5 #) [facility] CenterRspsudaVRUKBZNRSP9374-02-72 11:32:00 Test Item Value Reference Range Interpretation Comments Eosinophils # (test code 0.2 See_Comment [A utomated message] The = Eosinophils #) system whic h generated this result tra nsmitted reference range : <=0.5. The reference r leo was not used to int erpret this result as normal/abnormal . [facility] CenterUgepnltCHGEYBIMHS1773-75-54 11:32:00 Test Item Value Reference Range Interpretation Comments Segs (test code = Segs) 50.7 45.0-75.0 [facility] CenterTdjijanLDNEGMSXWX4980-05-37 11:32:00 Test Item Value Reference Range Interpretation [...] iron deficiency anemia, and renal disease. CPT: 49282 [facility] CenterAdvuyoyVOKSFJRHWF9237-70-64 11:32:00 Test Item Value Reference Range Interpretation Comments Hct (test code = Hct) 28.1 36.0-48.0 [facility] CenterNmjbxokCKSWTCMIZX9492-72-65 11:32:00 Test Item Value Reference Range Interpretation Comments RBC (test code = RBC) 3.39 4.20-5.40 [facility] CenterKycpfkoNJHUKSVLAR3976-80-67 11:32:00 Test Item Value Reference Range Interpretation Comments Hgb (test code = Hgb) 8.9 12.0-16.0 [facility] CenterZmhuetsBASPOIJQQW4368-92-74 11:32:00 Test Item Value Reference Range Interpretation Comments WBC (test code = WBC) 5.1 3.7-10.4 [facility] CenterFtnzpazGEKIFTCJCO4535-17-99 11:32:00 Test Item Value Reference Range Interpretation Comments MPV (test code = MPV) 11.3 7.4-10.4 [facility] CenterTboucyaVNHQEXAESZ1695-92-90 11:32:00 Test Item Value Reference Range Interpretation Comments Platelet (test code = Platelet) 118 133-450 [facility] CenterMwpbxdgCAUWWSMGCI3353-05-58 11:32:00 Test Item Value Reference Range Interpretation Comments MCHC (test code = MCHC) 31.8 32.0-36.0 [facility] CenterCoaciazRKYBYKUFAN6642-09-33 11:32:00 Test Item Value Reference Range Interpretation Comments RDW (test code = RDW) 18.0 11.5-14.5 [facility] CenterCvrlpjlXKSWTDVSMB4704-76-99 11:32:00 Test Item Value Reference Range Interpretation Comments MCV (test code = MCV) 83.0 80.0-98.0 [facility] CenterPrzthseGIGWADRRSS3575-68-62 11:32:00 Test Item Value Reference Range Interpretation Comments MCH (test code = MCH) 26.4 pg 27.0-31.0 [facility] HospitalAbowqqtUCPZBGMEPJ3099-34-47 11:32:00 Test Item Value Reference Range Interpretation Comments C3 Complement (test code = C3 137 88-201 Complement) [facility] HospitalRopfhajHOYFFYJPFJ1017-06-48 11:32:00 Test Item Value Reference Range Interpretation Comments HIV. (test code = Negative *NA*(07/30/16 HIV.) 5:32 AM) [facility] CenterMeifqfhYIJBLQBJLD6440-06-72 11:05:00 Test Item Value Reference Range Interpretation [...] iron deficiency anemia, and renal disease. CPT: 34225 [facility] HospitalDqzqmxbUPRCBSGHJO5579-70-14 11:05:00 Test Item Value Reference Range Interpretation Comments HIV. (test code = Negative *NA*(07/29/16 HIV.) 5:05 AM) [facility] HospitalDvyorfyHLDDLSSXPA5465-76-89 11:05:00 Test Item Value Reference Range Interpretation Comments C3 Complement (test code = C3 92 88-201 Complement) [facility]2017-02-07 15:50:00 Test Item Value Reference Range Interpretation Comments eGFR (test code = eGFR) 25 [facility]2017-02-07 15:50:00 Test Item Value Reference Range Interpretation Comments BUN (test code = BUN) 55 7-22 [facility]2017-02-07 15:50:00 Test Item Value Reference Range Interpretation Comments CO2 (test code = CO2) 23 24-32 [facility]2017-02-07 15:50:00 Test Item Value Reference Range Interpretation Comments Chloride Lvl (test code = Chloride Lvl) 109 95-109 [facility]2017-02-07 15:50:00 Test Item Value Reference Range Interpretation Comments Glucose Lvl (test code = Glucose Lvl) 101 70-99 [facility]2017-02-07 15:50:00 Test Item Value Reference Range Interpretation Comments Potassium Lvl (test code = Potassium 4.0 3.5-5.1 Lvl) [facility]2017-02-07 15:50:00 Test Item Value Reference Range Interpretation Comments Sodium Lvl (test code = Sodium Lvl) 141 135-145 [facility]2017-02-07 15:50:00 Test Item Value Reference Range Interpretation Comments AGAP (test code = AGAP) 13.0 10.0-20.0 [facility]2017-02-07 15:50:00 Test Item Value Reference Range Interpretation Comments Calcium Lvl (test code = Calcium Lvl) 7.7 8.5-10.5 [facility]2017-02-07 15:50:00 Test Item Value Reference Range Interpretation Comments Creatinine Lvl (test code = Creatinine 2.49 0.50-1.40 Lvl) [facility]GdsahbtFMOYDZFAQJ6631-49-83 15:50:00 Test Item Value Reference Range Interpretation Comments PT (test code = PT) 14.8 s 12.0-14.7 [facility] CenterByymplfIUQZYELNEB4192-55-36 15:50:00 Test Item Value Reference Range Interpretation Comments PTT (test code = PTT) 40.8 s 22.9-35.8 [facility] CenterIzisogdIHMAXOXXBN2410-77-84 15:50:00 Test Item Value Reference Range Interpretation Comments INR (test code = INR) 1.14 0.85-1.17 [facility]MoubysiRJNTUKZDRK1550-41-98 15:50:00 Test Item Value Reference Range Interpretation Comments C3 Complement (test code = C3 94 88-201 Complement) [facility] CenterUgzxnifVSBXARITVC1960-66-92 10:35:00 Test Item Value Reference Range Interpretation Comments Lymphocytes # (test code = Lymphocytes 1.7 1.0-5.5 #) [facility] CenterSjupsikLDFHHCBVKC8678-75-59 10:35:00 Test Item Value Reference Range Interpretation Comments Segs-Bands # (test code = Segs-Bands #) 2.7 1.5-8.1 [facility] CenterIdrzhtrPUINZVOZVE3388-24-13 10:35:00 Test Item Value Reference Range Interpretation Comments Eosinophils # (test code 0.1 See_Comment [A utomated message] The = Eosinophils #) system whic h generated this result tra nsmitted reference range : <=0.5. The reference r leo was not used to int erpret this result as normal/abnormal . [facility] CenterYagmnarUSQGRENLJS1296-85-79 10:35:00 Test Item Value Reference Range Interpretation Comments Monocytes # (test code 0.7 See_Comment [Aut omated message] The = Monocytes #) system which generated this result tra nsmitted reference range : <=0.8. The reference r leo was not used to int erpret this result as normal/abnormal . [facility] CenterRsxirtsAFKMNIIRKB3360-67-12 10:35:00 Test Item Value Reference Range Interpretation Comments Segs (test code = Segs) 51.3 45.0-75.0 [facility] CenterMagcmwyOJKKYMIIWC6084-30-44 10:35:00 Test Item Value Reference Range Interpretation Comments Lymphocytes (test code = Lymphocytes) 31.6 20.0-40.0 [facility] CenterRwuhzgwGHGGDRJSYL9637-61-49 10:35:00 Test Item Value Reference Range Interpretation Comments Monocytes (test code = Monocytes) 14.1 2.0-12.0 [facility] CenterJwymratQCKPERHREV6995-37-66 10:35:00 Test Item Value Reference Range Interpretation Comments Eosinophils (test code = 2.6 See_Comment [A utomated message] The Eosinophils) system which ge nerated this result tra nsmitted reference range : <=4.0. The reference r leo was not used to int erpret this result as normal/abnormal . [facility] CenterLynjimiEPARNZKURV2818-65-88 10:35:00 Test Item Value Reference Range Interpretation Comments Basophils (test code = 0.4 See_Comment [Aut omated message] The Basophils) system which ge nerated this result tra nsmitted reference range : <=1.0. The reference r leo was not used to int erpret this result as normal/abnormal . [facility] CenterEuazlnfCWLWARPGLF6848-99-34 10:35:00 Test Item Value Reference Range Interpretation Comments PB Smear Path Peripheral blood smear shows (test code = PB hypochromic normocytic Smear Path) anemia with anisopoikilocytsosis, no increase in schistocytes, slight polychromasia, a few estella cells, moderate thrombocytopenia. Impression: (1) no evidence of microangiopathic hemolysis, (2) RBC morphology is suggestive of anemia of chronic disease or iron deficiency anemia, and renal disease. CPT: 02564 [facility] CenterDxqoniwBQMZHPTWZX0037-52-61 10:35:00 Test Item Value Reference Range Interpretation Comments Hct (test code = Hct) 29.3 36.0-48.0 [facility] CenterPvcwmaxXFPKQCPEUQ1663-80-37 10:35:00 Test Item Value Reference Range Interpretation Comments Hgb (test code = Hgb) 9.2 12.0-16.0 [facility] CenterIkwuxbrCAFUASSRHW9035-38-96 10:35:00 Test Item Value Reference Range Interpretation Comments RBC (test code = RBC) 3.54 4.20-5.40 [facility] CenterFrlzwmdGCVHFNYCNO8500-96-93 10:35:00 Test Item Value Reference Range Interpretation Comments WBC (test code = WBC) 5.3 3.7-10.4 [facility] CenterHukticdFICSTSEKDK4581-43-22 10:35:00 Test Item Value Reference Range Interpretation Comments Platelet (test code = Platelet) 87 133-450 [facility] CenterYnioyieCNPBFLELTJ7212-06-30 10:35:00 Test Item Value Reference Range Interpretation Comments MCHC (test code = MCHC) 31.4 32.0-36.0 [facility] CenterZufiszdKLTOELJJJW8447-02-26 10:35:00 Test Item Value Reference Range Interpretation Comments RDW (test code = RDW) 17.9 11.5-14.5 [facility] CenterFjfcqykSWOTDTSHEZ7388-70-22 10:35:00 Test Item Value Reference Range Interpretation Comments MPV (test code = MPV) 10.9 7.4-10.4 [facility] SouthHlfvjncAPVCFYBCJY5656-27-51 10:35:00 Test Item Value Reference Range Interpretation Comments MCH (test code = MCH) 26.0 pg 27.0-31.0 [facility] SouthSkbtahlYDCAKWGXZE1811-35-70 10:35:00 Test Item Value Reference Range Interpretation Comments MCV (test code = MCV) 82.8 80.0-98.0 [facility] CenterRfhnokjMGOMAOUTXX9109-53-04 10:35:00 Test Item Value Reference Range Interpretation Comments HIV. (test code = Negative *NA*(07/28/16 HIV.) 4:35 AM) [facility] CenterCARDIAC EPFMXTO6907-10-55 10:22:00 Test Item Value Reference Range Interpretation Comments Total CK (test code = Total CK) 190 12-191 [facility] SouthnothingGrinder CMBZB9810-02-38 10:22:00 Test Item Value Reference Range Interpretation Comments Calcium Lvl (test code = Calcium Lvl) 7.8 8.5-10.5 [facility] CenterMolecule Synth SRTPP9627-30-73 10:22:00 Test Item Value Reference Range Interpretation Comments CO2 (test code = CO2) 21 24-32 [facility] [facility]annSUM[facility] HEALTH [id number] 10:22:00 Test Item Value Reference Range Interpretation Comments Sodium Lvl (test code = Sodium Lvl) 140 135-145 [facility] SouthnothingGrinder [id number] 10:22:00 Test Item Value Reference Range Interpretation Comments Potassium Lvl (test code = Potassium 3.8 3.5-5.1 Lvl) [facility] [id number] 10:22:00 Test Item Value Reference Range Interpretation Comments Chloride Lvl (test code = Chloride Lvl) 106 95-109 [facility] [id number] 10:22:00 Test Item Value Reference Range Interpretation Comments Bili Total (test code = Bili Total) 0.4 0.2-1.3 [facility]2017-02-06 10:22:00 Test Item Value Reference Range Interpretation Comments Alk Phos (test code = Alk Phos) 74 39-136 [facility]2017-02-06 10:22:00 Test Item Value Reference Range Interpretation Comments eGFR (test code = eGFR) 19 [facility]2017-02-06 10:22:00 Test Item Value Reference Range Interpretation Comments Total Protein (test code = Total 5.2 6.4-8.4 Protein) [facility]2017-02-06 10:22:00 Test Item Value Reference Range Interpretation Comments ALT (test code = ALT) 822 See_Comment [Auto mated message] The system which ge nerated this result transmit rohit reference range : <=65. The reference range was not used to interpr et this result as reji l/abnormal. [facility]2017-02-06 10:22:00 Test Item Value Reference Range Interpretation Comments AST (test code = AST) 205 See_Comment [Auto mated message] The system which ge nerated this result transmit rohit reference range : <=37. The reference range was not used to interpr et this result as reji l/abnormal. [facility]2017-02-06 10:22:00 Test Item Value Reference Range Interpretation Comments Albumin Lvl (test code = Albumin Lvl) 1.8 3.5-5.0 [facility]2017-02-06 10:22:00 Test Item Value Reference Range Interpretation Comments BUN (test code = BUN) 54 7-22 [facility]2017-02-06 10:22:00 Test Item Value Reference Range Interpretation Comments Glucose Lvl (test code = Glucose Lvl) 143 70-99 [facility]2017-02-06 10:22:00 Test Item Value Reference Range Interpretation Comments Creatinine Lvl (test code = Creatinine 3.11 0.50-1.40 Lvl) [facility]2017-02-06 10:22:00 Test Item Value Reference Range Interpretation Comments B/C Ratio (test code = B/C Ratio) 17 6-25 [facility]2017-02-06 10:22:00 Test Item Value Reference Range Interpretation Comments AGAP (test code = AGAP) 16.8 10.0-20.0 [facility]2017-02-06 10:22:00 Test Item Value Reference Range Interpretation Comments Globulin (test code = Globulin) 3.4 2.7-4.2 [facility]2017-02-06 10:22:00 Test Item Value Reference Range Interpretation Comments A/G Ratio (test code = A/G Ratio) 0.5 0.7-1.6 [facility]2017-02-06 10:22:00 Test Item Value Reference Range Interpretation Comments Magnesium Lvl (test code = Magnesium 2.0 1.8-2.4 Lvl) [facility]2017-02-06 10:22:00 Test Item Value Reference Range Interpretation Comments Phosphorus (test code = Phosphorus) 3.7 2.5-4.5 [facility] Cent[id number] 10:22:00 Test Item Value Reference Range Interpretation Comments RDW (test code = RDW) 17.7 11.5-14.5 [facility] CenterEhgdainQTGBFCAWFY9686-53-93 10:22:00 Test Item Value Reference Range Interpretation Comments MCHC (test code = MCHC) 32.9 32.0-36.0 [facility] CenterRvmlxesKZPATCZFCH8837-60-80 10:22:00 Test Item Value Reference Range Interpretation Comments Hct (test code = Hct) 25.4 36.0-48.0 [facility] CenterWkiyoboBIORKHIGBQ1992-11-78 10:22:00 Test Item Value Reference Range Interpretation Comments MCH (test code = MCH) 26.4 pg 27.0-31.0 [facility] CenterCieokmjIGROHPDQBK4882-69-92 10:22:00 Test Item Value Reference Range Interpretation Comments MCV (test code = MCV) 80.3 80.0-98.0 [facility] CenterOwpsllaMSTKOZCPQC0874-22-71 10:22:00 Test Item Value Reference Range Interpretation Comments MPV (test code = MPV) 11.4 7.4-10.4 [facility] CenterXpfroltPLSDTXWOOY4336-24-42 10:22:00 Test Item Value Reference Range Interpretation Comments Platelet (test code = Platelet) 74 133-450 [facility] CenterXgwxynvGDJGKAMLEH7199-15-34 10:22:00 Test Item Value Reference Range Interpretation Comments RBC (test code = RBC) 3.16 4.20-5.40 [facility] CenterAhcqdciDMQQPEMNZS1240-01-53 10:22:00 Test Item Value Reference Range Interpretation Comments WBC (test code = WBC) 5.3 3.7-10.4 [facility] CenterWeuywpdTHZGWZCMPD2083-04-72 10:22:00 Test Item Value Reference Range Interpretation Comments Hgb (test code = Hgb) 8.4 12.0-16.0 [facility] CenterRnnqcscEJSQWXODZI0094-57-87 10:22:00 Test Item Value Reference Range Interpretation Comments Monocytes (test code = Monocytes) 14.5 2.0-12.0 [facility] CenterVczzbyzPZIMKBMACP1208-78-42 10:22:00 Test Item Value Reference Range Interpretation Comments Lymphocytes (test code = Lymphocytes) 29.8 20.0-40.0 [facility] CenterUojyvkbOXFVXQQPRB1002-11-49 10:22:00 Test Item Value Reference Range Interpretation Comments Eosinophils # (test code 0.1 See_Comment [A utomated message] The = Eosinophils #) system whic h generated this result tra nsmitted reference range : <=0.5. The reference r leo was not used to int erpret this result as normal/abnormal . [facility] CenterUglrqslEWVFUSLOHP4628-52-13 10:22:00 Test Item Value Reference Range Interpretation Comments Monocytes # (test code 0.8 See_Comment [Aut omated message] The = Monocytes #) system which generated this result tra nsmitted reference range : <=0.8. The reference r leo was not used to int erpret this result as normal/abnormal . [facility] CenterTwlxodcINBGTXVNEK8732-89-02 10:22:00 Test Item Value Reference Range Interpretation Comments Segs-Bands # (test code = Segs-Bands #) 2.9 1.5-8.1 [facility] CenterNxdokhvUSZWIUVDFY0178-47-89 10:22:00 Test Item Value Reference Range Interpretation Comments Lymphocytes # (test code = Lymphocytes 1.6 1.0-5.5 #) [facility] CenterBotxfwtUJXVZAQJIN0118-93-24 10:22:00 Test Item Value Reference Range Interpretation Comments Basophils (test code = 0.4 See_Comment [Aut omated message] The Basophils) system which ge nerated this result tra nsmitted reference range : <=1.0. The reference r leo was not used to int erpret this result as normal/abnormal . [facility] CenterMbsfzjkDYJQDLSJYS0835-42-90 10:22:00 Test Item Value Reference Range Interpretation Comments Eosinophils (test code = 1.2 See_Comment [A utomated message] The Eosinophils) system which ge nerated this result tra nsmitted reference range : <=4.0. The reference r leo was not used to int erpret this result as normal/abnormal . [facility] CenterOikbnmvAWKZFLDWKF0763-31-50 10:22:00 Test Item Value Reference Range Interpretation Comments Segs (test code = Segs) 54.1 45.0-75.0 [facility] CenterSPECIAL SQFJKLNRY1751-55-13 10:22:00 Test Item Value Reference Range Interpretation Comments Hgb A1C (test code = Hgb A1C) 8.9 [facility] CenterCARDIAC [id number] 17:40:00 Test Item Value Reference Range Interpretation Comments Total CK (test code = Total CK) 344 12-191 [facility] CenterPfnjheaNFYOTMUOUG2430-38-53 17:40:00 Test Item Value Reference Range Interpretation Comments IVETTE (test code = IVETTE) Positive *ABN*(07/26/16 11:40 AM) [facility] CenterRwldmewULCQWXPVQQ6507-34-39 17:40:00 Test Item Value Reference Range Interpretation Comments 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 [facility] SouthAogoaoeUKNLDBNDSN3939-32-40 17:40:00 Test Item Value Reference Range Interpretation Comments SS-B (La) Ab (test code = SS-B (La) Ab) no [facility]HlffcfqAPGDKOJFUU8216-70-51 17:40:00 Test Item Value Reference Range Interpretation Comments SS-A (Ro) Ab (test code = SS-A (Ro) Ab) no [facility] HospitalAuarpapFIQCHUKULC6341-68-97 17:40:00 Test Item Value Reference Range Interpretation Comments DNA Ab (DS) (test Negative (07/26/16 11:40 code = DNA Ab (DS)) AM) [facility] SouthMihvdtxEWANDVPBYE3458-93-72 17:40:00 Test Item Value Reference Range Interpretation Comments IVETTE Titer (test code = 1:40 *ABN*(07/26/16 IVETTE Titer) 11:40 AM) [facility] [id number] 17:40:00 Test Item Value Reference Range Interpretation Comments U Sodium (test code = U Sodium) 21 [facility] CenterDpwsgvfRPPGGPEAJR1434-90-69 14:00:00 Test Item Value Reference Range Interpretation Comments INR (test code = INR) 1.11 0.85-1.17 [facility] CenterAbnanlwYKTBQEUXLI3028-49-93 14:00:00 Test Item Value Reference Range Interpretation Comments PT (test code = PT) 14.5 s 12.0-14.7 [facility] CenterFbgmucqEPWXBAXWXB7822-58-04 14:00:00 Test Item Value Reference Range Interpretation Comments Hep A IgM (test code Negative *NA*(07/26/16 = Hep A IgM) 8:00 AM) [facility] CenterBurjvznYFDBZWBKOH6965-26-88 14:00:00 Test Item Value Reference Range Interpretation Comments Hep B Core IgM (test Negative *NA*(07/26/16 code = Hep B Core 8:00 AM) IgM) [facility] CenterJikggjyNTMRHATPKO0162-25-40 14:00:00 Test Item Value Reference Range Interpretation Comments Hep C Ab (test code = Negative *NA*(07/26/16 Hep C Ab) 8:00 AM) [facility] SouthRevvatpADYVIFBFLD7445-20-04 14:00:00 Test Item Value Reference Range Interpretation Comments Hep Bs Ag (test code Negative *NA*(07/26/16 = Hep Bs Ag) 8:00 AM) [facility] CenterCHEM [id number] 10:42:00 Test Item Value Reference Range Interpretation Comments B/C Ratio (test code = B/C Ratio) 17 6-25 [facility]annCHEM [id number] 10:42:00 Test Item Value Reference Range Interpretation Comments ALT (test code = ALT) 1232 See_Comment [Auto mated message] The system which ge nerated this result transmit rohit reference range : <=65. The reference range was not used to interpr et this result as reji l/abnormal. [facility] [id number] 10:42:00 Test Item Value Reference Range Interpretation Comments A/G Ratio (test code = A/G Ratio) 0.5 0.7-1.6 [facility]2017-02-05 10:42:00 Test Item Value Reference Range Interpretation Comments Bili Total (test code = Bili Total) 0.3 0.2-1.3 [facility]2017-02-05 10:42:00 Test Item Value Reference Range Interpretation Comments Alk Phos (test code = Alk Phos) 79 39-136 [facility]2017-02-05 10:42:00 Test Item Value Reference Range Interpretation Comments AST (test code = AST) 586 See_Comment [Auto mated message] The system which ge nerated this result transmit rohit reference range : <=37. The reference range was not used to interpr et this result as reji l/abnormal. [facility]2017-02-05 10:42:00 Test Item Value Reference Range Interpretation Comments Total Protein (test code = Total 5.5 6.4-8.4 Protein) [facility]2017-02-05 10:42:00 Test Item Value Reference Range Interpretation Comments Globulin (test code = Globulin) 3.7 2.7-4.2 [facility]2017-02-05 10:42:00 Test Item Value Reference Range Interpretation Comments Albumin Lvl (test code = Albumin Lvl) 1.8 3.5-5.0 [facility]2017-02-05 10:42:00 Test Item Value Reference Range Interpretation Comments Magnesium Lvl (test code = Magnesium 2.1 1.8-2.4 Lvl) [facility] CenterMiiqtywTCEIKQSQIQ3414-61-02 10:42:00 Test Item Value Reference Range Interpretation Comments Acanthocyte (test code = Acanthocyte) Slight [facility] CenterAegxafxQCTLBFNVLT4357-46-14 10:42:00 Test Item Value Reference Range Interpretation Comments Rouleaux (test code = Present *ABN*(07/26/16 Rouleaux) 4:42 AM) [facility] CenterWjqexrqCNLWBWGRJO6578-35-88 10:42:00 Test Item Value Reference Range Interpretation Comments Anisocyte (test code = 1+ *ABN*(07/26/16 4:42 Anisocyte) AM) [facility] CenterBfigivlNVRZDPCDGC7010-33-01 10:42:00 Test Item Value Reference Range Interpretation Comments Basophils # (test code 0.1 See_Comment [Aut omated message] The = Basophils #) system which generated this result tra nsmitted reference range : <=0.2. The reference r leo was not used to int erpret this result as normal/abnormal . [facility] CenterBnvnplhNETJCUCQSG3399-62-84 10:42:00 Test Item Value Reference Range Interpretation Comments Large Plt (test code Moderate *ABN*(07/26/16 = Large Plt) 4:42 AM) [facility] CenterHiooeikJCZJUNZEWF3244-16-09 10:42:00 Test Item Value Reference Range Interpretation Comments C4 Complement (test code = C4 42 16-47 Complement) [facility] AND [id number] 16:34:00 Test Item Value Reference Range Interpretation Comments UA Sq Epi (test code = UA Sq Epi) None Seen [facility] AND [id number] 16:34:00 Test Item Value Reference Range Interpretation Comments UA Waxy Cast (test code = UA Waxy Cast) 1 [facility] AND [id number] 16:34:00 Test Item Value Reference Range Interpretation Comments UA Hyal Cast (test 4 See_Comment [Automat ed message] The code = UA Hyal Cast) system which generated this result transmit rohit reference range : <=2. The reference range was not used to interpr et this result as reji l/abnormal. [facility] AND [id number] 16:34:00 Test Item Value Reference Range Interpretation Comments UA Bacteria (test code = UA Occasional /HPF Bacteria) [facility] AND [id number] 16:34:00 Test Item Value Reference Range Interpretation Comments UA Mucus (test code = UA Mucus) Few /LPF [facility] AND [id number] 16:34:00 Test Item Value Reference Range Interpretation Comments UA Amorph Destiny (test code = Occasional /HPF UA Amorph Destiny) [facility] AND [id number] 16:34:00 Test Item Value Reference Range Interpretation Comments UA Leuk Est (test Negative (07/25/16 10:34 code = UA Leuk Est) AM) [facility] AND [id number] 16:34:00 Test Item Value Reference Range Interpretation Comments UA Nitrite (test code Negative (07/25/16 10:34 = UA Nitrite) AM) [facility] AND [id number] 16:34:00 Test Item Value Reference Range Interpretation Comments UA RBC (test code = 2 See_Comment [Automa rohit message] The UA RBC) system which ge nerated this result transmit rohit reference range : <=2. The reference range was not used to interpr et this result as reji l/abnormal. [facility] AND [id number] 16:34:00 Test Item Value Reference Range Interpretation Comments UA WBC (test code = 6 See_Comment [Automa rohit message] The UA WBC) system which ge nerated this result transmit rohit reference range : <=5. The reference range was not used to interpr et this result as reji l/abnormal. [facility] AND [id number] 16:34:00 Test Item Value Reference Range Interpretation Comments UA Urobilinogen (test code = UA 2.0 0.1-1.0 Urobilinogen) [facility] AND [id number] 16:34:00 Test Item Value Reference Range Interpretation Comments UA Ketones (test code = UA Negative mg/dL Ketones) [facility] AND [id number] 16:34:00 Test Item Value Reference Range Interpretation Comments UA Glucose (test code = UA Glucose) 70 mg/dL [facility] AND [id number] 16:34:00 Test Item Value Reference Range Interpretation Comments UA Blood (test code = Negative (07/25/16 10:34 UA Blood) AM) [facility] AND [id number] 16:34:00 Test Item Value Reference Range Interpretation Comments UA Bili (test code = Negative *NA*(07/25/16 UA Bili) 10:34 AM) [facility] AND [id number] 16:34:00 Test Item Value Reference Range Interpretation Comments UA Protein (test code = UA >=300 mg/dL Protein) [facility] AND [id number] 16:34:00 Test Item Value Reference Range Interpretation Comments UA Spec Grav (test code = UA Spec Grav) 1.012 [facility] AND [id number] 16:34:00 Test Item Value Reference Range Interpretation Comments UA pH (test code = UA pH) 5.5 5.0-8.0 [facility] AND [id number] 16:34:00 Test Item Value Reference Range Interpretation Comments UA Turbidity (test code Slight *ABN*(07/25/16 = UA Turbidity) 10:34 AM) [facility] AND [id number] 16:34:00 Test Item Value Reference Range Interpretation Comments UA Color (test code = Dark Yellow *NA*(07/25/16 UA Color) 10:34 AM) [facility] AND [id number] 16:34:00 Test Item Value Reference Range Interpretation Comments UA Gran Cast (test code = UA Gran Cast) 9 [facility] [id number] 16:34:00 Test Item Value Reference Range Interpretation Comments U Sodium (test code = U Sodium) 30 [facility] [id number] 16:34:00 Test Item Value Reference Range Interpretation Comments U Prot/Creat (test code = U Prot/Creat) 3.1 [facility] [id number] 16:34:00 Test Item Value Reference Range Interpretation Comments U Protein (test code = U Protein) 420.9 [facility] [id number] 16:34:00 Test Item Value Reference Range Interpretation Comments U Creatinine (test code = U 136.00 Creatinine) [facility]nothingGr[facility] [id number] 08:55:00 Test Item Value Reference Range Interpretation Comments Magnesium Lvl (test code = Magnesium 2.0 1.8-2.4 Lvl) [facility] [id number] 08:55:00 Test Item Value Reference Range Interpretation Comments Phosphorus (test code = Phosphorus) 5.2 2.5-4.5 [facility] CenterCARHappy KidzAC [id number] 17:29:00 Test Item Value Reference Range Interpretation Comments Troponin-I (test code 0.28 See_Comment [Auto mated message] The = Troponin-I) system which g enerated this result transmit rohit reference range : <=0.40. The reference r leo was not used to interpr et this result as reji l/abnormal. [facility] SouthDigital Tech FrontierCARHappy KidzAC [id number] 17:29:00 Test Item Value Reference Range Interpretation Comments Total CK (test code = Total CK) 2616 12-191 [facility] SouthRedis Labs [id number] 17:29:00 Test Item Value Reference Range Interpretation Comments Troponin-T (test code 0.144 See_Comment [Auto mated message] The = Troponin-T) system which g enerated this result transmit rohit reference range : <=0.100. The reference r leo was not used to interpr et this result as reji l/abnormal. [facility] [employer]2017-02-03 17:29:00 Test Item Value Reference Range Interpretation Comments CK MB Index (test 0.2 See_Comment [Automate d message] The code = CK MB Index) system w [facility] generated this result transmit rohit reference range : <=2.5. The reference range was not used to interpr et this result as reji l/abnormal. [facility] [employer]2017-02-03 17:29:00 Test Item Value Reference Range Interpretation Comments CK MB (test code = CK MB) 6.3 0.5-3.6 [facility] [employer]2017-02-03 11:20:00 Test Item Value Reference Range Interpretation Comments Troponin-I (test code 0.38 See_Comment [Auto mated message] The = Troponin-I) system which g enerated this result transmit rohit reference range : <=0.40. The reference r leo was not used to interpr et this result as reji l/abnormal. [facility] [employer]2017-02-03 11:20:00 Test Item Value Reference Range Interpretation Comments Troponin-T (test code 0.173 See_Comment [Auto mated message] The = Troponin-T) system which g enerated this result transmit rohit reference range : <=0.100. The reference r leo was not used to interpr et this result as reji l/abnormal. [facility] [employer]2017-02-03 11:20:00 Test Item Value Reference Range Interpretation Comments CK MB Index (test 0.2 See_Comment [Automate d message] The code = CK MB Index) system w [facility] generated this result transmit rohit reference range : <=2.5. The reference range was not used to interpr et this result as reji l/abnormal. [facility] [employer]2017-02-03 11:20:00 Test Item Value Reference Range Interpretation Comments CK MB (test code = CK MB) 5.6 0.5-3.6 [facility] [employer] [id number] 11:20:00 Test Item Value Reference Range Interpretation Comments Phosphorus (test code = Phosphorus) 5.5 2.5-4.5 [facility] [employer]2017-02-03 06:18:00 Test Item Value Reference Range Interpretation Comments BNP (test code = BNP) 701 [facility] [employer]2017-02-03 04:59:27 Test Item Value Reference Range Interpretation Comments Troponin-I (test code 0.57 See_Comment [Auto mated message] The = Troponin-I) system which g enerated this result transmit rohit reference range : <=0.40. The reference r leo was not used to interpr et this result as reji l/abnormal. [facility] [employer]2016-12-26 10:22:00 Test Item Value Reference Range Interpretation Comments BNP (test code = BNP) 526 [facility] [employer]2016-12-26 10:22:00 Test Item Value Reference Range Interpretation Comments Magnesium Lvl (test code = Magnesium 2.1 1.8-2.4 Lvl) [facility] [employer]2016-12-26 10:22:00 Test Item Value Reference Range Interpretation Comments Glucose Lvl (test code = Glucose Lvl) 117 70-99 [facility] [employer]2016-12-26 10:22:00 Test Item Value Reference Range Interpretation Comments BUN (test code = BUN) 41 7-22 [facility] [employer]2016-12-26 10:22:00 Test Item Value Reference Range Interpretation Comments Creatinine Lvl (test code = Creatinine 2.00 0.50-1.40 Lvl) [facility] [employer]2016-12-26 10:22:00 Test Item Value Reference Range Interpretation Comments Calcium Lvl (test code = Calcium Lvl) 9.0 8.5-10.5 [facility] [employer]2016-12-26 10:22:00 Test Item Value Reference Range Interpretation Comments Chloride Lvl (test code = Chloride Lvl) 102 95-109 [facility] [employer]2016-12-26 10:22:00 Test Item Value Reference Range Interpretation Comments CO2 (test code = CO2) 33 24-32 [facility] [employer]2016-12-26 10:22:00 Test Item Value Reference Range Interpretation Comments Sodium Lvl (test code = Sodium Lvl) 144 135-145 [facility]2016-12-26 10:22:00 Test Item Value Reference Range Interpretation Comments Potassium Lvl (test code = Potassium 4.0 3.5-5.1 Lvl) [facility]2016-12-26 10:22:00 Test Item Value Reference Range Interpretation Comments eGFR (test code = eGFR) 32 [facility]2016-12-26 10:22:00 Test Item Value Reference Range Interpretation Comments AGAP (test code = AGAP) 13.0 10.0-20.0 [facility]2016-12-26 10:22:00 Test Item Value Reference Range Interpretation Comments Phosphorus (test code = Phosphorus) 4.6 2.5-4.5 [facility] CenterY[id number] 10:22:00 Test Item Value Reference Range Interpretation Comments RBC (test code = RBC) 3.68 4.20-5.40 [facility] CenterOdkozdiPAWBKIDNHY6294-63-03 10:22:00 Test Item Value Reference Range Interpretation Comments Hgb (test code = Hgb) 9.9 12.0-16.0 [place] 395106-12-26 10:22:00 Test Item Value Reference Range Interpretation Comments MCH (test code = MCH) 26.8 pg 27.0-31.0 [facility] CenterPkmcwmqFVAMSBPOWU6407-05-51 10:22:00 Test Item Value Reference Range Interpretation Comments MCHC (test code = MCHC) 34.2 32.0-36.0 [facility] CenterFteicqiYNMRKTXPFQ0898-53-26 10:22:00 Test Item Value Reference Range Interpretation Comments MCV (test code = MCV) 78.3 80.0-98.0 [facility] CenterXhhnwveLSZHNGTPIS1382-56-42 10:22:00 Test Item Value Reference Range Interpretation Comments Hct (test code = Hct) 28.8 36.0-48.0 [facility] CenterTxdcxznNYISAFPWML4391-55-74 10:22:00 Test Item Value Reference Range Interpretation Comments Platelet (test code = Platelet) 191 133-450 [facility] CenterAchcfbiUPCTJUESRW4924-41-92 10:22:00 Test Item Value Reference Range Interpretation Comments MPV (test code = MPV) 9.5 7.4-10.4 [facility] CenterBfiqhxcOEAGADEHJC7113-04-87 10:22:00 Test Item Value Reference Range Interpretation Comments RDW (test code = RDW) 15.3 11.5-14.5 [facility] CenterQpbqgtdFIYKQBAPSY2353-04-92 10:22:00 Test Item Value Reference Range Interpretation Comments WBC (test code = WBC) 5.6 3.7-10.4 [facility] CenterWbkhjwrIEEFXSZXGC8121-84-86 10:22:00 Test Item Value Reference Range Interpretation Comments Eosinophils # (test code 0.5 See_Comment [A utomated message] The = Eosinophils #) system whic h generated this result tra nsmitted reference range : <=0.5. The reference r leo was not used to int erpret this result as normal/abnormal . [facility] CenterTvyznbjJIUPKATSAW6355-94-82 10:22:00 Test Item Value Reference Range Interpretation Comments Microcyte (test code = 1+ *ABN*(06/15/16 Microcyte) 4:22 AM) [facility] CenterKpsamjtDBATCTQLBO0512-64-33 10:22:00 Test Item Value Reference Range Interpretation Comments Basophils # (test code 0.1 See_Comment [Aut omated message] The = Basophils #) system which generated this result tra nsmitted reference range : <=0.2. The reference r leo was not used to int erpret this result as normal/abnormal . [facility] CenterVcbsckyIAYOJMUXBI9752-24-72 10:22:00 Test Item Value Reference Range Interpretation Comments Lymphocytes (test code = Lymphocytes) 33.5 20.0-40.0 [facility] CenterPcyzbybQSKZOMCNFC7205-03-93 10:22:00 Test Item Value Reference Range Interpretation Comments Segs (test code = Segs) 47.6 45.0-75.0 [facility] CenterBvtcimeMJQQBHOEIA7500-77-19 10:22:00 Test Item Value Reference Range Interpretation Comments Monocytes (test code = Monocytes) 8.4 2.0-12.0 [facility] CenterSfhktvbZZLRSZLXHU0727-10-82 10:22:00 Test Item Value Reference Range Interpretation Comments Eosinophils (test code = 9.4 See_Comment [A utomated message] The Eosinophils) system which ge nerated this result tra nsmitted reference range : <=4.0. The reference r leo was not used to int erpret this result as normal/abnormal . [facility] CenterQypphxdUZAQVRDTVW9681-75-86 10:22:00 Test Item Value Reference Range Interpretation Comments Segs-Bands # (test code = Segs-Bands #) 2.6 1.5-8.1 [facility] CenterZhhcqpsIEMDRDOCEW1535-81-99 10:22:00 Test Item Value Reference Range Interpretation Comments Lymphocytes # (test code = Lymphocytes 1.9 1.0-5.5 #) [facility] CenterHyzrhrlKRAOSFQPRV0681-33-14 10:22:00 Test Item Value Reference Range Interpretation Comments Basophils (test code = 1.1 See_Comment [Aut omated message] The Basophils) system which ge nerated this result tra nsmitted reference range : <=1.0. The reference r leo was not used to int erpret this result as normal/abnormal . [facility] CenterPnnyeevYMEWGARFVF8002-00-36 10:22:00 Test Item Value Reference Range Interpretation Comments Monocytes # (test code 0.5 See_Comment [Aut omated message] The = Monocytes #) system which generated this result tra nsmitted reference range : <=0.8. The reference r leo was not used to int erpret this result as normal/abnormal . [facility]2016-12-25 11:03:00 Test Item Value Reference Range Interpretation Comments Phosphorus (test code = Phosphorus) 4.8 2.5-4.5 [facility]2016-12-25 11:03:00 Test Item Value Reference Range Interpretation Comments Magnesium Lvl (test code = Magnesium 2.0 1.8-2.4 Lvl) [facility]2016-12-25 11:03:00 Test Item Value Reference Range Interpretation Comments eGFR (test code = eGFR) 32 [facility]2016-12-25 11:03:00 Test Item Value Reference Range Interpretation Comments Chloride Lvl (test code = Chloride Lvl) 101 95-109 [facility]2016-12-25 11:03:00 Test Item Value Reference Range Interpretation Comments Potassium Lvl (test code = Potassium 4.4 3.5-5.1 Lvl) [facility]2016-12-25 11:03:00 Test Item Value Reference Range Interpretation Comments BUN (test code = BUN) 37 7-22 [facility]2016-12-25 11:03:00 Test Item Value Reference Range Interpretation Comments Glucose Lvl (test code = Glucose Lvl) 119 70-99 [facility]2016-12-25 11:03:00 Test Item Value Reference Range Interpretation Comments Creatinine Lvl (test code = Creatinine 2.00 0.50-1.40 Lvl) [facility]2016-12-25 11:03:00 Test Item Value Reference Range Interpretation Comments Sodium Lvl (test code = Sodium Lvl) 142 135-145 [facility]2016-12-25 11:03:00 Test Item Value Reference Range Interpretation Comments Calcium Lvl (test code = Calcium Lvl) 8.7 8.5-10.5 [facility]2016-12-25 11:03:00 Test Item Value Reference Range Interpretation Comments CO2 (test code = CO2) 32 24-32 [facility]2016-12-25 11:03:00 Test Item Value Reference Range Interpretation Comments AGAP (test code = AGAP) 13.4 10.0-20.0 [facility] CenterRsdxxehAVXKCNRQPH8439-81-68 11:03:00 Test Item Value Reference Range Interpretation Comments Eosinophils (test code = 10.3 See_Comment [A utomated message] The Eosinophils) system which ge nerated this result tra nsmitted reference range : <=4.0. The reference r leo was not used to int erpret this result as normal/abnormal . [facility] CenterFvjfsmoCICCOUSHZU4997-61-48 11:03:00 Test Item Value Reference Range Interpretation Comments Basophils # (test code 0.1 See_Comment [Aut omated message] The = Basophils #) system which generated this result tra nsmitted reference range : <=0.2. The reference r leo was not used to int erpret this result as normal/abnormal . [facility] CenterOzkoxtaFCYOEZNMUQ3714-78-07 11:03:00 Test Item Value Reference Range Interpretation Comments Eosinophils # (test code 0.5 See_Comment [A utomated message] The = Eosinophils #) system whic h generated this result tra nsmitted reference range : <=0.5. The reference r leo was not used to int erpret this result as normal/abnormal . [facility] CenterCihdyqxHPYUVAOZGL9547-57-38 11:03:00 Test Item Value Reference Range Interpretation Comments Monocytes # (test code 0.5 See_Comment [Aut omated message] The = Monocytes #) system which generated this result tra nsmitted reference range : <=0.8. The reference r leo was not used to int erpret this result as normal/abnormal . [facility] CenterYmeqhlrDCTMHPYJKK6926-99-48 11:03:00 Test Item Value Reference Range Interpretation Comments Segs-Bands # (test code = Segs-Bands #) 2.1 1.5-8.1 [facility] CenterLnndonxHBHIULXVMV0037-16-70 11:03:00 Test Item Value Reference Range Interpretation Comments Basophils (test code = 1.2 See_Comment [Aut omated message] The Basophils) system which ge nerated this result tra nsmitted reference range : <=1.0. The reference r leo was not used to int erpret this result as normal/abnormal . [facility] CenterKqdseafOYGEDLUSUC9015-48-13 11:03:00 Test Item Value Reference Range Interpretation Comments Lymphocytes # (test code = Lymphocytes 1.9 1.0-5.5 #) [facility] CenterVnwwhnlGQTVPFVOWR5088-98-84 11:03:00 Test Item Value Reference Range Interpretation Comments Segs (test code = Segs) 42.5 45.0-75.0 [facility] CenterEccwjmpAWFNBKAWRN1688-52-40 11:03:00 Test Item Value Reference Range Interpretation Comments Lymphocytes (test code = Lymphocytes) 37.0 20.0-40.0 [facility] CenterWybnlsaYKLXYZMHEQ4803-49-69 11:03:00 Test Item Value Reference Range Interpretation Comments Monocytes (test code = Monocytes) 9.0 2.0-12.0 [facility] CenterOnvlcvfFVOHPBEQPB7242-27-32 11:03:00 Test Item Value Reference Range Interpretation Comments MPV (test code = MPV) 9.8 7.4-10.4 [facility] CenterPuyipmnDSLGLUGCJH0992-61-95 11:03:00 Test Item Value Reference Range Interpretation Comments WBC (test code = WBC) 5.0 3.7-10.4 [facility] CenterPyoquekLWAHDBNMAJ2785-06-91 11:03:00 Test Item Value Reference Range Interpretation Comments RBC (test code = RBC) 3.57 4.20-5.40 [facility] CenterGgrdvlxXGYHXVGOPJ4922-72-52 11:03:00 Test Item Value Reference Range Interpretation Comments Hgb (test code = Hgb) 9.4 12.0-16.0 [facility] CenterJwcpauyERBFBGVSQC4489-09-09 11:03:00 Test Item Value Reference Range Interpretation Comments Hct (test code = Hct) 28.5 36.0-48.0 [facility]QvsoxasSMJRTRSYHF9055-96-54 11:03:00 Test Item Value Reference Range Interpretation Comments Platelet (test code = Platelet) 183 133-450 [facility] CenterPibeaosPAJIHYZKGZ4614-14-54 11:03:00 Test Item Value Reference Range Interpretation Comments MCV (test code = MCV) 79.9 80.0-98.0 [facility] CenterRvdbvnnEFNKHHJYFF8035-96-61 11:03:00 Test Item Value Reference Range Interpretation Comments MCH (test code = MCH) 26.3 pg 27.0-31.0 [facility] CenterTphtkpzQVYIRWOCQA9007-86-38 11:03:00 Test Item Value Reference Range Interpretation Comments MCHC (test code = MCHC) 33.0 32.0-36.0 [facility] CenterUqhwvrmTOBLVSMSTG2250-63-89 11:03:00 Test Item Value Reference Range Interpretation Comments RDW (test code = RDW) 15.9 11.5-14.5 [facility] [id number] 10:26:00 Test Item Value Reference Range Interpretation Comments U Prot/Creat (test code = U Prot/Creat) 6.9 [facility] PUPS8932-65-93 10:26:00 Test Item Value Reference Range Interpretation Comments U Creatinine (test code = U Creatinine) 19.30 [facility]2016-12-24 10:26:00 Test Item Value Reference Range Interpretation Comments U Protein (test code = U Protein) 133.1 [facility] CenterJwdqsupDHFXFFFJLG5536-96-07 09:20:00 Test Item Value Reference Range Interpretation Comments MPV (test code = MPV) 9.7 7.4-10.4 [facility] CenterFbecatfYFRXAZJUMB2683-93-35 09:20:00 Test Item Value Reference Range Interpretation Comments Platelet (test code = Platelet) 184 133-450 [facility] CenterXpsozyhGWTEMHBPPY5581-59-30 09:20:00 Test Item Value Reference Range Interpretation Comments RDW (test code = RDW) 15.9 11.5-14.5 [facility] CenterJtvbdheLHVYOLRALT4080-39-33 09:20:00 Test Item Value Reference Range Interpretation Comments MCV (test code = MCV) 79.3 80.0-98.0 [facility] CenterAevaokgDVHXKVYGPL6219-46-69 09:20:00 Test Item Value Reference Range Interpretation Comments MCHC (test code = MCHC) 33.0 32.0-36.0 [facility] CenterBzvpldfPJQPSBPGRH9524-44-29 09:20:00 Test Item Value Reference Range Interpretation Comments MCH (test code = MCH) 26.2 pg 27.0-31.0 [facility] CenterMgjqdgfGVQIAXCIPO5615-61-81 09:20:00 Test Item Value Reference Range Interpretation Comments Hct (test code = Hct) 29.4 36.0-48.0 [place] 395106-12-24 09:20:00 Test Item Value Reference Range Interpretation Comments Hgb (test code = Hgb) 9.7 12.0-16.0 [facility] CenterTwueeccHAPDHJZGXD3056-50-08 09:20:00 Test Item Value Reference Range Interpretation Comments RBC (test code = RBC) 3.70 4.20-5.40 [facility] CenterMktlbgcFPASNDFUXC9517-86-66 09:20:00 Test Item Value Reference Range Interpretation Comments WBC (test code = WBC) 5.7 3.7-10.4 [place] 395106-12-24 09:20:00 Test Item Value Reference Range Interpretation Comments Basophils # (test code 0.1 See_Comment [Aut omated message] The = Basophils #) system which generated this result tra nsmitted reference range : <=0.2. The reference r leo was not used to int erpret this result as normal/abnormal . [facility] CenterPwhussfJPMXCNAGBK4813-86-36 09:20:00 Test Item Value Reference Range Interpretation Comments Lymphocytes # (test code = Lymphocytes 2.2 1.0-5.5 #) [facility] CenterIvnehhtIQAETUZTAC4477-34-11 09:20:00 Test Item Value Reference Range Interpretation Comments Eosinophils # (test code 0.5 See_Comment [A utomated message] The = Eosinophils #) system whic h generated this result tra nsmitted reference range : <=0.5. The reference r leo was not used to int erpret this result as normal/abnormal . [place] 395106-12-24 09:20:00 Test Item Value Reference Range Interpretation Comments Monocytes # (test code 0.5 See_Comment [Aut omated message] The = Monocytes #) system which generated this result tra nsmitted reference range : <=0.8. The reference r leo was not used to int erpret this result as normal/abnormal . [facility] CenterHnmhhgaSXIPRVOVBA0578-83-79 09:20:00 Test Item Value Reference Range Interpretation Comments Basophils (test code = 1.1 See_Comment [Aut omated message] The Basophils) system which ge nerated this result tra nsmitted reference range : <=1.0. The reference r leo was not used to int erpret this result as normal/abnormal . [facility] CenterCrljfvrIXSEUUKLMG0263-69-73 09:20:00 Test Item Value Reference Range Interpretation Comments Segs-Bands # (test code = Segs-Bands #) 2.3 1.5-8.1 [facility] CenterUtnnyezJRRQKRLGBU2047-27-49 09:20:00 Test Item Value Reference Range Interpretation Comments Eosinophils (test code = 9.5 See_Comment [A utomated message] The Eosinophils) system which ge nerated this result tra nsmitted reference range : <=4.0. The reference r leo was not used to int erpret this result as normal/abnormal . [facility] CenterPqlmwidUPRMIZLZLI3815-89-25 09:20:00 Test Item Value Reference Range Interpretation Comments Monocytes (test code = Monocytes) 9.0 2.0-12.0 [facility] CenterYublkcuCFBAMZRLZF3843-29-57 09:20:00 Test Item Value Reference Range Interpretation Comments Lymphocytes (test code = Lymphocytes) 38.9 20.0-40.0 [facility] CenterCewxecxJIIMRCZFVJ9483-13-49 09:20:00 Test Item Value Reference Range Interpretation Comments Segs (test code = Segs) 41.5 45.0-75.0 [facility]2016-12-24 06:34:00 Test Item Value Reference Range Interpretation Comments Magnesium Lvl (test code = Magnesium 1.7 1.8-2.4 Lvl) [facility]2016-12-24 06:34:00 Test Item Value Reference Range Interpretation Comments Phosphorus (test code = Phosphorus) 4.2 2.5-4.5 [facility]xeXPPDXESFATOR5495-76-80 06:34:00 Test Item Value Reference Range Interpretation Comments AGAP (test code = AGAP) 14.3 10.0-20.0 [facility] HospitalUeeiawbSOVXKKRGTGMZ6883-84-77 06:34:00 Test Item Value Reference Range Interpretation Comments eGFR (test code = eGFR) 41 [facility] HospitalUhzugysNMTHKQZWADPD9812-39-97 06:34:00 Test Item Value Reference Range Interpretation Comments Chloride Lvl (test code = Chloride Lvl) 103 95-109 [facility] HospitalEbrwnhfPRXBBLQHXONA1793-59-65 06:34:00 Test Item Value Reference Range Interpretation Comments Calcium Lvl (test code = Calcium Lvl) 8.5 8.5-10.5 [facility] HospitalJxrnddwTHQVPZZDLTQF9308-89-24 06:34:00 Test Item Value Reference Range Interpretation Comments CO2 (test code = CO2) 32 24-32 [facility] HospitalJzrfdfaGZGWZIBKYDGA6126-98-75 06:34:00 Test Item Value Reference Range Interpretation Comments Glucose Lvl (test code = Glucose Lvl) 173 70-99 [facility] HospitalUqpzutpSXTUUWIWBTQZ4681-45-68 06:34:00 Test Item Value Reference Range Interpretation Comments BUN (test code = BUN) 37 7-22 [facility] HospitalQzxibkiIKBFWBBDUFWH5087-56-43 06:34:00 Test Item Value Reference Range Interpretation Comments Creatinine Lvl (test code = Creatinine 1.63 0.50-1.40 Lvl) [facility] HospitalYbyxgooGESLJAFHCDPE4091-88-93 06:34:00 Test Item Value Reference Range Interpretation Comments Potassium Lvl (test code = Potassium 4.3 3.5-5.1 Lvl) [facility] HospitalGdtemmxOOXETDBBPTLB4815-33-74 06:34:00 Test Item Value Reference Range Interpretation Comments Sodium Lvl (test code = Sodium Lvl) 145 135-145 [facility]2016-12-22 16:21:00 Test Item Value Reference Range Interpretation Comments Ammonia (test code = Ammonia) 48.0 [facility] HospitalXtgetixPWIYGYWLHI9785-52-46 14:56:00 Test Item Value Reference Range Interpretation Comments IVETTE Interp (test code Pattern appears = IVETTE Interp) Nucleolar. [facility] HospitalQpgzghhSZOCKYJNUQ8646-85-88 14:56:00 Test Item Value Reference Range Interpretation Comments IVETTE Titer (test code = 1:40 *ABN*(06/11/16 IVETTE Titer) 8:56 AM) [facility] HospitalAvpcdklZYWAOBQPTE9127-57-83 14:56:00 Test Item Value Reference Range Interpretation Comments Hep Bs Ag (test code Negative *NA*(06/11/16 = Hep Bs Ag) 8:56 AM) [facility]DwmsfnaVOVTHMWQIT2007-65-34 14:56:00 Test Item Value Reference Range Interpretation Comments Hep C Ab (test code = Negative *NA*(06/11/16 Hep C Ab) 8:56 AM) [facility] HospitalMzrwcveNDKRAGCOCW7516-49-88 14:56:00 Test Item Value Reference Range Interpretation Comments Hep B Core IgM (test Negative *NA*(06/11/16 code = Hep B Core 8:56 AM) IgM) [facility] HospitalQfjyfahFUUVHCPMUO2049-63-26 14:56:00 Test Item Value Reference Range Interpretation Comments Hep A IgM (test code Negative *NA*(06/11/16 = Hep A IgM) 8:56 AM) [facility] HospitalOhqfxfmMPIQOOTBIS6625-81-10 14:56:00 Test Item Value Reference Range Interpretation Comments HIV Ag/Ab 4th Gen Negative *NA*(06/11/16 (test code = HIV 8:56 AM) Ag/Ab 4th Gen) [facility] HospitalUvkdcupVLXGFHJQRE8664-26-01 14:56:00 Test Item Value Reference Range Interpretation Comments IVETTE (test code = IVETTE) Positive *ABN*(06/11/16 8:56 AM) [facility]2016-12-22 10:42:00 Test Item Value Reference Range Interpretation Comments Bili Total (test code = Bili Total) 0.1 0.2-1.3 [facility]2016-12-22 10:42:00 Test Item Value Reference Range Interpretation Comments Total Protein (test code = Total 5.2 6.4-8.4 Protein) [facility]2016-12-22 10:42:00 Test Item Value Reference Range Interpretation Comments Albumin Lvl (test code = Albumin Lvl) 1.6 3.5-5.0 [facility]2016-12-22 10:42:00 Test Item Value Reference Range Interpretation Comments B/C Ratio (test code = B/C Ratio) 20 6-25 [facility]2016-12-22 10:42:00 Test Item Value Reference Range Interpretation Comments Globulin (test code = Globulin) 3.6 2.7-4.2 [facility]2016-12-22 10:42:00 Test Item Value Reference Range Interpretation Comments A/G Ratio (test code = A/G Ratio) 0.4 0.7-1.[address] [facility] VNQTU7574-82-92 10:42:00 Test Item Value Reference Range Interpretation Comments Alk Phos (test code = Alk Phos) 74 39-[address] [facility] VGUZW3811-73-26 10:42:00 Test Item Value Reference Range Interpretation Comments ALT (test code = ALT) 14 See_Comment [Auto mated message] The system which ge nerated this result transmit rohit reference range : <=65. The reference range was not used to interpr et this result as reji l/abnormal. [facility] [id number] 10:42:00 Test Item Value Reference Range Interpretation Comments AST (test code = AST) 13 See_Comment [Auto mated message] The system which ge nerated this result transmit rohit reference range : <=37. The reference range was not used to interpr et this result as reji l/abnormal. [facility] CenterLzupxymIAUUJGKJMN0402-60-71 10:42:00 Test Item Value Reference Range Interpretation Comments INR (test code = INR) 1.06 0.85-1.17 [facility] CenterArsaeveWIBPOCDGHO9221-44-02 10:42:00 Test Item Value Reference Range Interpretation Comments PT (test code = PT) 14.0 s 12.0-14.7 [facility] CenterXyntblaLOREIYURHI2000-01-88 10:42:00 Test Item Value Reference Range Interpretation Comments PTT (test code = PTT) 36.4 s 22.9-35.8 [facility] CenterSPECIAL NFMVJVTPS0217-99-83 10:42:00 Test Item Value Reference Range Interpretation Comments Hgb A1C (test code = Hgb A1C) 10.5 [facility] CMVHWPU9438-76-89 02:08:00 Test Item Value Reference Range Interpretation Comments CK MB Index (test 1.8 See_Comment [Automate d message] The code = CK MB Index) system w [facility] generated this result transmit rohit reference range : <=2.5. The reference range was not used to interpr et this result as reji l/abnormal. [facility] CenterSpacedeck ZGSNCBM5626-39-51 02:08:00 Test Item Value Reference Range Interpretation Comments CK MB (test code = CK MB) 2.9 0.5-3.6 [facility]CARD[facility]AC [id number] 02:08:00 Test Item Value Reference Range Interpretation Comments Troponin-T (test code 0.061 See_Comment [Auto mated message] The = Troponin-T) system which g enerated this result transmit rohit reference range : <=0.100. The reference r leo was not used to interpr et this result as reji l/abnormal. [facility] CenterCricket MediaKING[facility] [id number] 02:08:00 Test Item Value Reference Range Interpretation Comments Total CK (test code = Total CK) 159 12-191 [facility] CenterCricket MediaKING'[facility] DAUGH[facility] [id number] 02:08:00 Test Item Value Reference Range Interpretation Comments Troponin-I (test code no gt See_Comment [Auto mated message] The = Troponin-I) system which g enerated this result transmit rohit reference range : <=0.40. The reference r leo was not used to interpr et this result as reji l/abnormal. [facility] [employer]2016-12-22 02:08:00 Test Item Value Reference Range Interpretation Comments Bili Total (test code = Bili Total) 0.2 0.2-1.3 [facility] SouthnothingGrinder [id number] 02:08:00 Test Item Value Reference Range Interpretation Comments Bili Direct (test code 0.1 See_Comment [Aut omated message] The = Bili Direct) system which generated this result tra nsmitted reference range : <=0.3. The reference r leo was not used to int erpret this result as reji l/abnormal. [facility] [employer]2016-12-22 02:08:00 Test Item Value Reference Range Interpretation Comments Bili Indirect (test 0.1 See_Comment [Automa rohit message] The code = Bili Indirect) system which generated this result tra nsmitted reference range : <=1.0. The reference r leo was not used to int erpret this result as normal/abnormal . [facility] [employer]2016-12-22 02:08:00 Test Item Value Reference Range Interpretation Comments Total Protein (test code = Total 5.7 6.4-8.4 Protein) [facility] [id number] 02:08:00 Test Item Value Reference Range Interpretation Comments A/G Ratio (test code = A/G Ratio) 0.5 0.7-1.6 [facility] [employer] [id number] 02:08:00 Test Item Value Reference Range Interpretation Comments Albumin Lvl (test code = Albumin Lvl) 1.8 3.5-5.0 [facility] [employer] [id number] 02:08:00 Test Item Value Reference Range Interpretation Comments Globulin (test code = Globulin) 3.9 2.7-4.2 [facility] [employer] [id number] 02:08:00 Test Item Value Reference Range Interpretation Comments Alk Phos (test code = Alk Phos) 99 39-136 [facility] [employer] [id number] 02:08:00 Test Item Value Reference Range Interpretation Comments AST (test code = AST) 21 See_Comment [Auto mated message] The system which ge nerated this result transmit rohit reference range : <=37. The reference range was not used to interpr et this result as reji l/abnormal. [facility] [employer] [id number] 02:08:00 Test Item Value Reference Range Interpretation Comments ALT (test code = ALT) 17 See_Comment [Auto mated message] The system which ge nerated this result transmit rohit reference range : <=65. The reference range was not used to interpr et this result as reji l/abnormal. [facility] ACHICA2016-12-22 02:08:00 Test Item Value Reference Range Interpretation Comments UDS Note (test code = See Note *NA*(06/10/16 UDS Note) 8:08 PM) [facility] ACHICA2016-12-22 02:08:00 Test Item Value Reference Range Interpretation Comments U Propoxyph Scr (test Negative *NA*(06/10/16 code = U Propoxyph Scr) 8:08 PM) [facility] ACHICA2016-12-22 02:08:00 Test Item Value Reference Range Interpretation Comments U Opiate Scr (test Negative *NA*(06/10/16 code = U Opiate Scr) 8:08 PM) [facility] [employer] [id number] 02:08:00 Test Item Value Reference Range Interpretation Comments U Methadone Scr (test Negative *NA*(06/10/16 code = U Methadone Scr) 8:08 PM) [facility] [employer] [id number] 02:08:00 Test Item Value Reference Range Interpretation Comments U Phencyc Scr (test Negative *NA*(06/10/16 code = U Phencyc Scr) 8:08 PM) [facility] [id number] 02:08:00 Test Item Value Reference Range Interpretation Comments U Cannab Scr (test Negative *NA*(06/10/16 code = U Cannab Scr) 8:08 PM) [facility] [id number] 02:08:00 Test Item Value Reference Range Interpretation Comments U Amph Scr (test code Negative *NA*(06/10/16 = U Amph Scr) 8:08 PM) [facility] [id number] 02:08:00 Test Item Value Reference Range Interpretation Comments U Kelly Scr (test code Negative *NA*(06/10/16 = U Kelly Scr) 8:08 PM) [facility] [id number] 02:08:00 Test Item Value Reference Range Interpretation Comments U Benzodia Scr (test Negative *NA*(06/10/16 code = U Benzodia Scr) 8:08 PM) [facility] [id number] 02:08:00 Test Item Value Reference Range Interpretation Comments U Cocaine Scr (test Negative *NA*(06/10/16 code = U Cocaine Scr) 8:08 PM) [facility] SouthVtrqdixDWTGCG8344-44-22 02:08:00 Test Item Value Reference Range Interpretation Comments LDL (Calculated) (test code = LDL 75 (Calculated)) [facility] DmbecvqSFBIWF2650-08-66 02:08:00 Test Item Value Reference Range Interpretation Comments VLDL (test code = VLDL) 27 [facility] CbcbvksLYLJHO6878-31-27 02:08:00 Test Item Value Reference Range Interpretation Comments Chol (test code = Chol) 133 [facility] NqvnyppYFHYEP6359-63-89 02:08:00 Test Item Value Reference Range Interpretation Comments Trig (test code = Trig) 133 [facility] SrpudqtDMJRSC6233-58-95 02:08:00 Test Item Value Reference Range Interpretation Comments CHD Risk (test code = CHD Risk) 4.29 3.90-5.80 [facility]oxzaeUZYYNZ2100-86-53 02:08:00 Test Item Value Reference Range Interpretation Comments HDL (test code = HDL) 31 [facility] SouthannURINE AND [id number] 02:08:00 Test Item Value Reference Range Interpretation Comments UA Urobilinogen (test code = UA <=1.0 mg/dL 0.1-1.0 Urobilinogen) [facility] AND [id number] 02:08:00 Test Item Value Reference Range Interpretation Comments UA Ketones (test code = UA Negative mg/dL Ketones) [facility] AND [id number] 02:08:00 Test Item Value Reference Range Interpretation Comments UA Glucose (test code = UA Glucose) 300 mg/dL [facility] AND [id number] 02:08:00 Test Item Value Reference Range Interpretation Comments UA Protein (test code = UA >=300 mg/dL Protein) [facility] AND [id number] 02:08:00 Test Item Value Reference Range Interpretation Comments UA pH (test code = UA pH) 6.0 5.0-8.0 [facility] AND [id number] 02:08:00 Test Item Value Reference Range Interpretation Comments UA Nitrite (test code Negative (06/10/16 8:08 = UA Nitrite) PM) [facility] AND [id number] 02:08:00 Test Item Value Reference Range Interpretation Comments UA Blood (test code = Trace *ABN*(06/10/16 UA Blood) 8:08 PM) [facility] AND [id number] 02:08:00 Test Item Value Reference Range Interpretation Comments UA Bili (test code = Negative *NA*(06/10/16 UA Bili) 8:08 PM) [facility] AND [id number] 02:08:00 Test Item Value Reference Range Interpretation Comments UA Mucus (test code = UA Mucus) Few /LPF [facility] AND [id number] 02:08:00 Test Item Value Reference Range Interpretation Comments UA RBC (test code = 4 See_Comment [Automa rohit message] The UA RBC) system which ge nerated this result transmit rohit reference range : <=2. The reference range was not used to interpr et this result as reji l/abnormal. [facility] AND [id number] 02:08:00 Test Item Value Reference Range Interpretation Comments UA Sq Epi (test code = UA Sq Epi) Few /LPF [facility] [id number] 02:08:00 Test Item Value Reference Range Interpretation Comments UA WBC (test code = 5 See_Comment [Automa rohit message] The UA WBC) system which ge nerated this result transmit rohit reference range : <=5. The reference range was not used to interpr et this result as reji l/abnormal. [facility] [id number] 02:08:00 Test Item Value Reference Range Interpretation Comments UA Leuk Est (test code Small *ABN*(06/10/16 = UA Leuk Est) 8:08 PM) [facility] [id number] 02:08:00 Test Item Value Reference Range Interpretation Comments UA Hyal Cast (test 1 See_Comment [Automat ed message] The code = UA Hyal Cast) system which generated this result transmit rohit reference range : <=2. The reference range was not used to interpr et this result as reji l/abnormal. [facility] [id number] 02:08:00 Test Item Value Reference Range Interpretation Comments UA Spec Grav (test code = UA Spec Grav) 1.009 [facility] [id number] 02:08:00 Test Item Value Reference Range Interpretation Comments UA Color (test code = Yellow *NA*(06/10/16 UA Color) 8:08 PM) [facility] [id number] 02:08:00 Test Item Value Reference Range Interpretation Comments UA Turbidity (test code = Clear (06/10/16 8:08 UA Turbidity) PM) [facility] [id number] 02:08:00 Test Item Value Reference Range Interpretation Comments U Preg (test code = U Negative (06/10/16 8:08 Preg) PM) [facility] [id number] 02:08:00 Test Item Value Reference Range Interpretation Comments U Protein (test code = U Protein) 375.4 [facility] [id number] 02:08:00 Test Item Value Reference Range Interpretation Comments U Prot/Creat (test code = U Prot/Creat) 5.4 [facility] [id number] 02:08:00 Test Item Value Reference Range Interpretation Comments U Creatinine (test code = U Creatinine) 69.80 [facility]annCARDIAC [id number] 16:53:00 Test Item Value Reference Range Interpretation Comments BNP (test code = BNP) 1135 [facility] [id number] 16:53:00 Test Item Value Reference Range Interpretation Comments Troponin-I (test code no gt See_Comment [Auto mated message] The = Troponin-I) system which g enerated this result transmit rohit reference range : <=0.40. The reference r leo was not used to interpr et this result as reji l/abnormal. [facility] [employer] [id number] 13:02:00 Test Item Value Reference Range Interpretation Comments Lactic Acid WB (test code = Lactic Acid 0.9 0.5-2.2 WB) [facility] CenterEbhqhesFGYETYOJLU0056-12-77 12:29:44 Test Item Value Reference Range Interpretation Comments Valproic Acid Lvl (test code = Valproic 10 50-100 Acid Lvl) [facility] Cent[id number] 11:21:27 Test Item Value Reference Range Interpretation Comments hCG Tot (test code = hCG Tot) 1 [facility] SouthnothingGrinder [id number] 11:21:00 Test Item Value Reference Range Interpretation Comments Albumin Lvl (test code = Albumin Lvl) 3.2 3.5-5.0 [facility]nothingGr[facility] [id number] 11:21:00 Test Item Value Reference Range Interpretation Comments Total Protein (test code = Total 6.6 6.4-8.4 Protein) [facility]nothingGr[facility] [id number] 11:21:00 Test Item Value Reference Range Interpretation Comments Bili Total (test code = Bili Total) 0.6 0.2-1.3 [facility]nothingGr[facility] [id number] 11:21:00 Test Item Value Reference Range Interpretation Comments Alk Phos (test code = Alk Phos) 59 39-136 [facility]nothing[facility] [id number] 11:21:00 Test Item Value Reference Range Interpretation Comments AST (test code = AST) 11 See_Comment [Auto mated message] The system which ge nerated this result transmit rohit reference range : <=37. The reference range was not used to interpr et this result as reji l/abnormal. [facility] [employer] [id number] 11:21:00 Test Item Value Reference Range Interpretation Comments ALT (test code = ALT) 17 See_Comment [Auto mated message] The system which ge nerated this result transmit rohit reference range : <=65. The reference range was not used to interpr et this result as reji l/abnormal. [facility]2015-01-06 11:21:00 Test Item Value Reference Range Interpretation Comments eGFR (test code = eGFR) 99 [facility]2015-01-06 11:21:00 Test Item Value Reference Range Interpretation Comments Glucose Lvl (test code = Glucose Lvl) 314 70-99 [facility]2015-01-06 11:21:00 Test Item Value Reference Range Interpretation Comments Potassium Lvl (test code = Potassium 3.4 3.5-5.1 Lvl) [facility]2015-01-06 11:21:00 Test Item Value Reference Range Interpretation Comments BUN (test code = BUN) 11 7-22 [facility]2015-01-06 11:21:00 Test Item Value Reference Range Interpretation Comments Creatinine Lvl (test code = Creatinine 0.8 0.5-1.4 Lvl) [facility]2015-01-06 11:21:00 Test Item Value Reference Range Interpretation Comments Sodium Lvl (test code = Sodium Lvl) 134 135-145 [facility]2015-01-06 11:21:00 Test Item Value Reference Range Interpretation Comments Chloride Lvl (test code = Chloride Lvl) 94 95-109 [facility]2015-01-06 11:21:00 Test Item Value Reference Range Interpretation Comments Calcium Lvl (test code = Calcium Lvl) 9.1 8.5-10.5 [facility]2015-01-06 11:21:00 Test Item Value Reference Range Interpretation Comments CO2 (test code = CO2) 24 24-32 [facility]2015-01-06 11:21:00 Test Item Value Reference Range Interpretation Comments A/G Ratio (test code = A/G Ratio) 0.9 0.7-1.6 [facility]2015-01-06 11:21:00 Test Item Value Reference Range Interpretation Comments Globulin (test code = Globulin) 3.4 2.0-4.0 [facility]2015-01-06 11:21:00 Test Item Value Reference Range Interpretation Comments B/C Ratio (test code = B/C Ratio) 14 6-25 [facility]2015-01-06 11:21:00 Test Item Value Reference Range Interpretation Comments AGAP (test code = AGAP) 19.4 10.0-20.0 [facility]2015-01-06 11:21:00 Test Item Value Reference Range Interpretation Comments Lipase Lvl (test code = Lipase Lvl) 81 73-393 [facility] CenterRnygxzsZTJRUJYRFZ2137-25-83 11:21:00 Test Item Value Reference Range Interpretation Comments Large Plt (test code = Large Plt) Slight [facility] CenterDuekdahGQEEJHJSPC9936-86-31 11:21:00 Test Item Value Reference Range Interpretation Comments Basophils # (test code 0.0 See_Comment [Aut omated message] The = Basophils #) system which generated this result tra nsmitted reference range : <=0.2. The reference r leo was not used to int erpret this result as normal/abnormal . [facility] C[id number] 11:21:00 Test Item Value Reference Range Interpretation Comments Anisocyte (test code = 1+ *ABN*(06/26/14 5:21 Anisocyte) AM) [facility] CenterZqzphplRKCORZJFGN1407-21-73 11:21:00 Test Item Value Reference Range Interpretation Comments Monocytes # (test code 0.6 See_Comment [Aut omated message] The = Monocytes #) system which generated this result tra nsmitted reference range : <=0.8. The reference r leo was not used to int erpret this result as normal/abnormal . [facility] CenterZstukvaZSEHGJCTUT1965-12-01 11:21:00 Test Item Value Reference Range Interpretation Comments Eosinophils # (test code 0.1 See_Comment [A utomated message] The = Eosinophils #) system whic h generated this result tra nsmitted reference range : <=0.5. The reference r leo was not used to int erpret this result as normal/abnormal . [facility] CenterVcyefzqGHDKESTECB3427-28-95 11:21:00 Test Item Value Reference Range Interpretation Comments Lymphocytes # (test code = Lymphocytes 2.5 1.0-5.5 #) [facility] C[id number] 11:21:00 Test Item Value Reference Range Interpretation Comments Segs (test code = Segs) 63.3 45.0-75.0 [facility] CenterQiojvwlNKWVBFRUYM8686-75-72 11:21:00 Test Item Value Reference Range Interpretation Comments Segs-Bands # (test code = Segs-Bands #) 5.6 1.5-8.1 [facility] CenterProjmopUNRPOKHGTT7183-92-70 11:21:00 Test Item Value Reference Range Interpretation Comments Basophils (test code = 0.0 See_Comment [Aut omated message] The Basophils) system which ge nerated this result tra nsmitted reference range : <=1.0. The reference r leo was not used to int erpret this result as normal/abnormal . [facility] CenterNceleqkZOECZXXHQA0158-12-60 11:21:00 Test Item Value Reference Range Interpretation Comments Eosinophils (test code = 0.9 See_Comment [A utomated message] The Eosinophils) system which ge nerated this result tra nsmitted reference range : <=4.0. The reference r leo was not used to int erpret this result as normal/abnormal . [facility] CenterNcwuuhoBRWYDVAGZZ3052-77-95 11:21:00 Test Item Value Reference Range Interpretation Comments Monocytes (test code = Monocytes) 7.0 2.0-12.0 [facility] CenterBdwgolsJTOQFCPDYQ9053-71-45 11:21:00 Test Item Value Reference Range Interpretation Comments Lymphocytes (test code = Lymphocytes) 28.8 20.0-40.0 [facility] CenterQwbqldsLWFFXQKPND1073-38-36 11:21:00 Test Item Value Reference Range Interpretation Comments WBC (test code = WBC) 8.8 3.7-10.4 [facility] CenterXdjcacgWJTFNOIYOK9944-50-55 11:21:00 Test Item Value Reference Range Interpretation Comments RBC (test code = RBC) 5.19 4.20-5.40 [facility] CenterSsowhsgPNUTTIKNGJ9606-58-42 11:21:00 Test Item Value Reference Range Interpretation Comments Hgb (test code = Hgb) 14.4 12.0-16.0 [facility] CenterMwcpjntDMWTOAWUKC0924-64-31 11:21:00 Test Item Value Reference Range Interpretation Comments Hct (test code = Hct) 43.1 36.0-48.0 [facility] CenterGkujpebVGCTWWZBSF8945-32-13 11:21:00 Test Item Value Reference Range Interpretation Comments MCV (test code = MCV) 83.1 80.0-98.0 [facility] CenterJjphcisKCHNWQVUXC4909-20-45 11:21:00 Test Item Value Reference Range Interpretation Comments MCH (test code = MCH) 27.8 pg 27.0-31.0 [facility] CenterVtnlrbsUUEGAZDHLZ9331-78-80 11:21:00 Test Item Value Reference Range Interpretation Comments RDW (test code = RDW) 13.1 11.5-14.5 [facility] CenterCwlwuhqSFXGKHHBHZ6689-51-77 11:21:00 Test Item Value Reference Range Interpretation Comments MCHC (test code = MCHC) 33.5 32.0-36.0 [facility] CenterSuwmwdvCUMJQWITJC5939-27-74 11:21:00 Test Item Value Reference Range Interpretation Comments Platelet (test code = Platelet) 201 133-450 [facility] CenterBaisuuyPPMNTJVYQY2231-47-87 11:21:00 Test Item Value Reference Range Interpretation Comments MPV (test code = MPV) 10.4 7.4-10.4 [facility] CenterXlqitumCHUYYCSIOB3845-24-01 04:48:55 Test Item Value Reference Range Interpretation Comments UA [place] Yeast (test code = UA Occasional /HPF A [place] Yeast) [facility] CenterXejtfrcBUHNJZSHPO2140-00-93 04:48:55 Test Item Value Reference Range Interpretation Comments UA Mucus (test code = UA Mucus) Few /LPF N [facility] CenterUbvepicZCGHTPOTJL8014-79-93 04:48:55 Test Item Value Reference Range Interpretation Comments UA Sq Epi (test code = UA Sq Moderate /LPF A Epi) [facility] CenterDcureaqLSCALFYXNR5097-60-80 04:48:55 Test Item Value Reference Range Interpretation Comments Micro? (test code = Performed (04/14/2013 N Micro?) 23:48:55) [facility] CenterDveqmrpLLTIBMWGOG0620-94-06 04:48:55 Test Item Value Reference Range Interpretation Comments UA WBC (test code = UA WBC) 0-2 /HPF N [facility] CenterYqfvshiULPVHGVMPM9982-69-44 04:48:55 Test Item Value Reference Range Interpretation Comments UA Bacteria (test code = UA Occasional /HPF N Bacteria) [facility] CenterIwfwyekYXOJBDNMYR6932-41-67 04:48:55 Test Item Value Reference Range Interpretation Comments UA Glucose (test code = UA Glucose) 500 mg/dL A [facility] CenterYrrjpyvJGAYZROYYE2219-09-39 04:48:55 Test Item Value Reference Range Interpretation Comments UA Bili (test code = Negative *NA*(04/14/2013 UA Bili) 23:48:55) [facility] CenterUfaoygrMFFZPSCQGL5818-52-09 04:48:55 Test Item Value Reference Range Interpretation Comments UA Ketones (test code = Trace A UA Ketones) *ABN*(04/14/2013 23:48:55) [facility] CenterXsksflvNUURRJVORH8639-69-06 04:48:55 Test Item Value Reference Range Interpretation Comments UA Blood (test code = Negative (04/14/2013 N UA Blood) 23:48:55) [facility] CenterTikyesbOVEGHVSXFL6766-58-74 04:48:55 Test Item Value Reference Range Interpretation Comments UA Urobilinogen (test code = UA 0.2 0.1-1.0 N Urobilinogen) [facility] CenterBrslazbJFMXYBECUT6839-16-57 04:48:55 Test Item Value Reference Range Interpretation Comments UA Nitrite (test code Negative (04/14/2013 N = UA Nitrite) 23:48:55) [facility] CenterIllqxufICLDGOCJKP9263-58-57 04:48:55 Test Item Value Reference Range Interpretation Comments UA Leuk Est (test Negative (04/14/2013 N code = UA Leuk Est) 23:48:55) [facility] CenterKtvkjhwRSVEEPNHAY2349-55-03 04:48:55 Test Item Value Reference Range Interpretation Comments UA Turbidity (test code = Clear (04/14/2013 N UA Turbidity) 23:48:55) [facility] CenterVktuljqOKWMZHDEVU6888-28-82 04:48:55 Test Item Value Reference Range Interpretation Comments UA Color (test code = Yellow *NA*(04/14/2013 UA Color) 23:48:55) [facility] CenterSizeshrDXHIDEFPZX1005-94-66 04:48:55 Test Item Value Reference Range Interpretation Comments UA pH (test code = UA pH) 7.0 1 5.0-8.0 N [facility] CenterHuzpzxyQJXIWJLRJS1682-69-10 04:48:55 Test Item Value Reference Range Interpretation Comments UA Spec Grav (test code = UA Spec 1.025 1 N Grav) [facility] CenterNctdxioFEMCLTSUCH2643-47-37 04:48:55 Test Item Value Reference Range Interpretation Comments UA Protein (test code = Trace A UA Protein) *ABN*(04/14/2013 23:48:55) [facility]sw[facility]ffiUUJCXXDYN2117-10-97 04:28:00 Test Item Value Reference Range Interpretation Comments S Preg (test code = S Negative *NA*(04/14/2013 Preg) 23:28:00) [facility]iscoEspueceKPWYLAOWZ1318-94-02 04:28:00 Test Item Value Reference Range Interpretation Comments Lipase Lvl (test code = Lipase Lvl) 233 73-393 N [facility]iscoIrrxzieFXTYILFHK9469-07-63 04:28:00 Test Item Value Reference Range Interpretation Comments Globulin (test code = Globulin) 4.1 2.0-4.0 [facility]UanvnpqIPTQHQVKE6589-75-58 04:28:00 Test Item Value Reference Range Interpretation Comments AGAP (test code = AGAP) 10.5 10.0-20.0 N [facility]iscoYkngqhgLMGEQNZKG8449-85-53 04:28:00 Test Item Value Reference Range Interpretation Comments B/C Ratio (test code = B/C Ratio) 6 6-25 [facility]iscoPrvrntfGBXRBZNGA4911-23-34 04:28:00 Test Item Value Reference Range Interpretation Comments A/G Ratio (test code = A/G Ratio) 0.7 0.7-1.6 N [facility]iscoSdqugzdWGWSYJXPW3030-19-65 04:28:00 Test Item Value Reference Range Interpretation Comments eGFR (test code = eGFR) 130 [facility]iscoSwgezkaXLBCDMDZG2138-89-92 04:28:00 Test Item Value Reference Range Interpretation Comments Albumin Lvl (test code = Albumin Lvl) 2.9 3.5-5.0 L [facility]iscoHxnfjssGJHOXYRZP6558-20-22 04:28:00 Test Item Value Reference Range Interpretation Comments ASPARTATE TRANSAMINASE 20 See_Comment N [Aut omated message] (test code = ASPARTATE The s ystem which TRANSAMINASE) generated this result transmitted ref erence range: <=37. Th e reference range was not used to interpr et this result as normal/abnormal . [facility]iscoHyleiwoKKXRQGMHH3767-43-26 04:28:00 Test Item Value Reference Range Interpretation Comments Bili Total (test code = Bili Total) 0.5 0.2-1.3 N [facility]iscoUmbjyyoMWTXMSASW6490-73-45 04:28:00 Test Item Value Reference Range Interpretation Comments Alk Phos (test code = Alk Phos) 89 39-136 N [facility]iscoXrfnqofHOWDOZEWX1084-25-35 04:28:00 Test Item Value Reference Range Interpretation Comments ALANINE AMINOTRANSFERASE 11 See_Comment N [A utomated message] (test code = ALANINE The sys tem which AMINOTRANSFERASE) generated this result transmitted ref erence range: <=65. Th e reference range was not used to int erpret this result as normal/abnormal . [facility]iscoPhqkvmpADGYZEBNQ2635-61-76 04:28:00 Test Item Value Reference Range Interpretation Comments Creatinine Lvl (test code = Creatinine 0.5 0.5-1.4 N Lvl) [facility]aqaasoMJZDUSOJQ5617-99-24 04:28:00 Test Item Value Reference Range Interpretation Comments BUN (test code = BUN) 3 7-22 L [facility]HdjfvviPAHEDSKHY9521-31-03 04:28:00 Test Item Value Reference Range Interpretation Comments Glucose Lvl (test code = Glucose Lvl) 255 70-99 H [facility]BfrxqudHPHAJWGMD4716-00-04 04:28:00 Test Item Value Reference Range Interpretation Comments Total Protein (test code = Total 7.0 6.4-8.4 N Protein) [facility]iscoHpiffxxICZENLGTQ3947-13-12 04:28:00 Test Item Value Reference Range Interpretation Comments Calcium Lvl (test code = Calcium Lvl) 8.7 8.5-10.5 N [facility]FgnxrybTKYEIEQUP3695-27-26 04:28:00 Test Item Value Reference Range Interpretation Comments CO2 (test code = CO2) 29 24-32 N [facility]iscoFikeqqeKRZIGVQQK3944-37-31 04:28:00 Test Item Value Reference Range Interpretation Comments Chloride Lvl (test code = Chloride Lvl) 104 95-109 N [facility]iscoGeltkjrASBNOGTRE7822-58-14 04:28:00 Test Item Value Reference Range Interpretation Comments Potassium Lvl (test code = Potassium 3.5 3.5-5.1 N Lvl) [facility]JmtqggiVRGJVTTQJ7639-65-12 04:28:00 Test Item Value Reference Range Interpretation Comments Sodium Lvl (test code = Sodium Lvl) 140 135-145 N [facility] CenterAxwmclpKVWXAMUXFK4695-21-39 04:28:00 Test Item Value Reference Range Interpretation Comments PROTIME (test code = PROTIME) 12.1 s 12.0-14.7 N [facility] CenterTyyegsqELPXGQKWXZ2298-29-44 04:28:00 Test Item Value Reference Range Interpretation Comments aPTT (test code = aPTT) 39.0 s 22.9-35.8 H [facility] CenterLxeaqfcJGFIKDKOOX4939-13-87 04:28:00 Test Item Value Reference Range Interpretation Comments INR (test code = INR) 0.90 0.85-1.17 N [facility] CenterItxpuhmYFRSSLNENV5119-86-99 04:28:00 Test Item Value Reference Range Interpretation Comments MCH (test code = MCH) 29.4 pg 27.0-31.0 N [facility] CenterRyibfwqCMTNWZWYZB3846-80-53 04:28:00 Test Item Value Reference Range Interpretation Comments MCV (test code = MCV) 86.1 81.0-99.0 N [facility] CenterIlxhraqNSIAETGYGN8858-02-53 04:28:00 Test Item Value Reference Range Interpretation Comments Hct (test code = Hct) 29.4 36.0-48.0 L [facility] CenterXcimcloPMPIMKTAOC4987-48-53 04:28:00 Test Item Value Reference Range Interpretation Comments RDW (test code = RDW) 14.0 11.5-14.5 N [facility] CenterZfihxgoJFHIMNWEJN0701-13-56 04:28:00 Test Item Value Reference Range Interpretation Comments WBC X 10x3 (test code = WBC X 10x3) 6.2 3.7-10.4 N [facility] CenterCkfvxmhWLVZBFRMEW1423-40-77 04:28:00 Test Item Value Reference Range Interpretation Comments Platelet (test code = Platelet) 178 133-450 N [facility] CenterZefvukuKYZJRPGUPM5586-31-10 04:28:00 Test Item Value Reference Range Interpretation Comments MCHC (test code = MCHC) 34.1 32.0-36.0 N [facility] CenterGsmuvuxXIMJISRDXG3633-60-89 04:28:00 Test Item Value Reference Range Interpretation Comments RBC X 10x6 (test code = RBC X 10x6) 3.41 4.20-5.40 L [facility] CenterZexpvcdOWQUCXEKPX9606-00-14 04:28:00 Test Item Value Reference Range Interpretation Comments Hgb (test code = Hgb) 10.0 12.0-16.0 L [facility] CenterIyctzjkNZUKXJGKNK6710-05-95 04:28:00 Test Item Value Reference Range Interpretation Comments MPV (test code = MPV) 10.1 7.4-10.4 N [facility] CenterMltzkwnDKOWLXZXEI5451-75-79 04:28:00 Test Item Value Reference Range Interpretation Comments Segs-Bands # (test code = Segs-Bands #) 4.4 1.5-8.1 N [facility] CenterDuatbszZXFWCGIOKW3708-58-95 04:28:00 Test Item Value Reference Range Interpretation Comments Basophils (test code = 0.7 See_Comment N [Aut omated message] The Basophils) system which ge nerated this result tra nsmitted reference range : <=1.0. The reference r leo was not used to int erpret this result as normal/abnormal . [facility] CenterCeomigdXOSKJRCNOI8417-30-92 04:28:00 Test Item Value Reference Range Interpretation Comments Segs (test code = Segs) 70.7 45.0-75.0 N [facility] CenterDebmiebBNJCZYQARE1527-28-36 04:28:00 Test Item Value Reference Range Interpretation Comments Monocytes # (test code 0.3 See_Comment N [Aut omated message] The = Monocytes #) system which generated this result tra nsmitted reference range : <=0.8. The reference r leo was not used to int erpret this result as normal/abnormal . [facility] CenterMfbvzzkRMTZJREDWV6955-91-74 04:28:00 Test Item Value Reference Range Interpretation Comments Lymphocytes # (test code = Lymphocytes 1.2 1.0-5.5 N #) [facility] CenterScckhzrAHZFSVXIKW7501-68-02 04:28:00 Test Item Value Reference Range Interpretation Comments Monocytes (test code = Monocytes) 4.5 2.0-12.0 N [facility] CenterJhsccmnBWLMBIBHLH1891-21-33 04:28:00 Test Item Value Reference Range Interpretation Comments Eosinophils (test code = 4.1 See_Comment H [A utomated message] The Eosinophils) system which ge nerated this result tra nsmitted reference range : <=4.0. The reference r leo was not used to int erpret this result as normal/abnormal . [facility] CenterClfhipfMKFGIWBYFE2928-42-08 04:28:00 Test Item Value Reference Range Interpretation Comments Lymphocytes (test code = Lymphocytes) 20.0 20.0-40.0 N [facility] CenterWswcxyhKFOQOAIMZP0202-78-26 04:28:00 Test Item Value Reference Range Interpretation Comments Basophils # (test code 0.0 See_Comment N [Aut omated message] The = Basophils #) system which generated this result tra nsmitted reference range : <=0.2. The reference r leo was not used to int erpret this result as normal/abnormal . [facility] CenterMuatmgtFUEDTHDCXE2550-82-85 04:28:00 Test Item Value Reference Range Interpretation Comments Eosinophils # (test code 0.3 See_Comment N [A utomated message] The = Eosinophils #) system whic h generated this result tra nsmitted reference range : <=0.5. The reference r leo was not used to int erpret this result as normal/abnormal . [facility] GLUCOSE FNVORXU3361-75-04 01:12:00 Test Item Value Reference Range Interpretation Comments Gluc POC Lifscn (test code = Gluc POC 260 70-99 H Lifscn) [facility] GLUCOSE VCLXGER4084-48-73 01:12:00 Test Item Value Reference Range Interpretation Comments Comment1 (test code = Comment1) [facility] CenterPusqzlvPAEOFWBRPN7091-08-12 23:40:00 Test Item Value Reference Range Interpretation Comments UA Protein (test code = Trace A UA Protein) *ABN*(03/14/2012 18:40:00) [facility]XaggeajWJTEHEOCVA7498-98-73 23:40:00 Test Item Value Reference Range Interpretation Comments UA pH (test code = UA pH) 6.0 1 5.0-8.0 N [facility]anoNxdmagoSOAFHPKUPV2130-83-72 23:40:00 Test Item Value Reference Range Interpretation Comments UA Ketones (test code = >=80 mg/dL UA Ketones) *NA*(03/14/2012 18:40:00) [facility] CenterFgdeqqqPKSEUDWGFL6858-31-85 23:40:00 Test Item Value Reference Range Interpretation Comments UA Glucose (test code = >=1000 mg/dL A UA Glucose) *ABN*(03/14/2012 18:40:00) [facility]anoDbbwhuyBFLAUWXJKM3574-44-69 23:40:00 Test Item Value Reference Range Interpretation Comments UA Blood (test code = Negative (03/14/2012 N UA Blood) 18:40:00) [facility] CenterEodegmpIMNOOWSUMC5021-94-92 23:40:00 Test Item Value Reference Range Interpretation Comments UA Nitrite (test code Negative (03/14/2012 N = UA Nitrite) 18:40:00) [facility] SouthMptarrfFZDRORDETV7914-33-66 23:40:00 Test Item Value Reference Range Interpretation Comments UA Urobilinogen (test code = UA 0.2 0.1-1.0 N Urobilinogen) [facility]anoBfifxjuJNOODJBEFS8452-22-58 23:40:00 Test Item Value Reference Range Interpretation Comments UA Leuk Est (test Negative (03/14/2012 N code = UA Leuk Est) 18:40:00) [facility] SouthOpsmggwBPCSXXFQDF0619-78-16 23:40:00 Test Item Value Reference Range Interpretation Comments UA Bili (test code = Negative *NA*(03/14/2012 UA Bili) 18:40:00) [facility] CenterDnmadugHHIUGWJMVX9220-71-23 23:40:00 Test Item Value Reference Range Interpretation Comments UA Turbidity (test code = Clear (03/14/2012 N UA Turbidity) 18:40:00) [facility]anoQqprvmqLRPTWJKKRY1650-34-33 23:40:00 Test Item Value Reference Range Interpretation Comments UA Color (test code = Yellow *NA*(03/14/2012 UA Color) 18:40:00) [facility] SouthDduxpumGXNHHLRDZO9343-39-38 23:40:00 Test Item Value Reference Range Interpretation Comments UA Spec Grav (test >=1.030 A code = UA Spec Grav) *ABN*(03/14/2012 18:40:00) [facility]anoRyrcszkRQRCHOGKQL2943-63-96 23:40:00 Test Item Value Reference Range Interpretation Comments UA Sq Epi (test code Occasional /LPF N = UA Sq Epi) (03/14/2012 18:40:00) [facility] SouthBcecvvyZTGLXYZMZM7110-26-24 23:40:00 Test Item Value Reference Range Interpretation Comments UA WBC (test code = UA 3-5 /HPF (03/14/2012 N WBC) 18:40:00) [facility] SouthEcmuykeGVHPQZVYFD7949-84-88 23:40:00 Test Item Value Reference Range Interpretation Comments UA Bacteria (test code Occasional /HPF N = UA Bacteria) (03/14/2012 18:40:00) [facility] SouthYlxawvsJHFSBLOSO0051-06-71 22:50:00 Test Item Value Reference Range Interpretation Comments S Preg (test code = S Negative *NA*(03/14/2012 Preg) 17:50:00) [facility]SjliaycCLRKGXZXV6627-85-54 22:50:00 Test Item Value Reference Range Interpretation Comments Lipase Lvl (test code = Lipase Lvl) 45 73-393 L [facility]FnpnmifOTIHRNUDL6711-71-11 22:50:00 Test Item Value Reference Range Interpretation Comments A/G Ratio (test code = A/G Ratio) 1.2 0.7-1.6 N [facility]QqocasbTDMLOPVFY5571-74-02 22:50:00 Test Item Value Reference Range Interpretation Comments Globulin (test code = Globulin) 3.8 2.0-4.0 N [facility]BgixgpaZYLKXZAPR7811-90-04 22:50:00 Test Item Value Reference Range Interpretation Comments B/C Ratio (test code = B/C Ratio) 21 6-25 N [facility]iscoZlwlmktSIHPSSNZU9059-10-51 22:50:00 Test Item Value Reference Range Interpretation Comments AGAP (test code = AGAP) 16.8 10.0-20.0 N [facility]iscoTrtofpaLZBYSDWNK7290-05-91 22:50:00 Test Item Value Reference Range Interpretation Comments Bili Total (test code = Bili Total) 1.1 0.2-1.3 N [facility]iscoKefgzpyBHMBHWJUZ8737-90-50 22:50:00 Test Item Value Reference Range Interpretation Comments Total Protein (test code = Total 8.2 6.4-8.4 N Protein) [facility]iscoUhxjtncQGWGUOTWB5496-80-72 22:50:00 Test Item Value Reference Range Interpretation Comments Potassium Lvl (test code = Potassium 3.8 3.5-5.1 N Lvl) [facility]OgytdnzFYQEYQBNK8984-07-58 22:50:00 Test Item Value Reference Range Interpretation Comments Creatinine Lvl (test code = Creatinine 0.7 0.5-1.4 N Lvl) [facility]iscoMeffjnqNTPHCYVKZ2650-46-72 22:50:00 Test Item Value Reference Range Interpretation Comments Sodium Lvl (test code = Sodium Lvl) 139 135-145 N [facility]iscoLgapbvtIJIESZRDG1431-18-32 22:50:00 Test Item Value Reference Range Interpretation Comments Chloride Lvl (test code = Chloride Lvl) 99 95-109 N [facility]MocmzemLMJPZIIXO9966-67-73 22:50:00 Test Item Value Reference Range Interpretation Comments CO2 (test code = CO2) 27 24-32 N [facility]iscoZzwviteQFGDZCEHZ1827-99-87 22:50:00 Test Item Value Reference Range Interpretation Comments Glucose Lvl (test code = Glucose Lvl) 301 70-99 H [facility]iscoAnkglveGRYXTSBSJ5569-24-25 22:50:00 Test Item Value Reference Range Interpretation Comments BUN (test code = BUN) 15 7-22 N [facility]iscoMubaikcMDEZVZLTC9861-55-40 22:50:00 Test Item Value Reference Range Interpretation Comments ALT (test code = ALT) 24 See_Comment N [Auto mated message] The system which ge nerated this result transmit rohit reference range : <=65. The reference range was not used to interpr et this result as reji l/abnormal. [facility]iscoNvuwpajRYQCPUVLK9874-37-84 22:50:00 Test Item Value Reference Range Interpretation Comments AST (test code = AST) 20 See_Comment N [Auto mated message] The system which ge nerated this result transmit rohit reference range : <=37. The reference range was not used to interpr et this result as reji l/abnormal. [facility]iscoNlvhsanRPIWKEWVS7600-80-78 22:50:00 Test Item Value Reference Range Interpretation Comments Alk Phos (test code = Alk Phos) 67 39-136 N [facility]iscoFmhajumHSOKPTDGK1175-49-09 22:50:00 Test Item Value Reference Range Interpretation Comments Albumin Lvl (test code = Albumin Lvl) 4.4 3.5-5.0 N [facility]iscoSpuodczZCOQJFDNH1771-39-54 22:50:00 Test Item Value Reference Range Interpretation Comments Calcium Lvl (test code = Calcium Lvl) 9.9 8.5-10.5 N [facility] CenterPmatxdnYQKPKOEGVJ6225-58-06 22:50:00 Test Item Value Reference Range Interpretation Comments MPV (test code = MPV) 11.8 7.4-10.4 H [facility] CenterDleugghXLYLMWOUJY2482-63-06 22:50:00 Test Item Value Reference Range Interpretation Comments MCHC (test code = MCHC) 35.9 32.0-36.0 N [facility] CenterPodkobgVZFDQJEMTQ8364-94-63 22:50:00 Test Item Value Reference Range Interpretation Comments MCH (test code = MCH) 31.2 pg 27.0-31.0 H [facility] CenterButxjhfHKVENCDBSI5508-65-64 22:50:00 Test Item Value Reference Range Interpretation Comments Platelet (test code = Platelet) 189 133-450 N [facility] CenterJgxvlrtZPQYTDAEJE5714-36-19 22:50:00 Test Item Value Reference Range Interpretation Comments RDW (test code = RDW) 13.1 11.5-14.5 N [facility] CenterBarpiwnLKTCTUBIUE4629-55-92 22:50:00 Test Item Value Reference Range Interpretation Comments Hct (test code = Hct) 40.7 36.0-48.0 N [facility] CenterIgsvmxnZAMMAQJFVL9652-10-03 22:50:00 Test Item Value Reference Range Interpretation Comments Hgb (test code = Hgb) 14.6 12.0-16.0 N [facility] CenterPhbaknlRSWPITKDSD6194-07-88 22:50:00 Test Item Value Reference Range Interpretation Comments MCV (test code = MCV) 87.0 81.0-99.0 N [facility] CenterTwbqvgeMEGIKZSMCS5621-71-37 22:50:00 Test Item Value Reference Range Interpretation Comments WBC (test code = WBC) 11.7 3.7-10.4 H [facility] CenterXzwglhfOQYXZLTOIY1184-48-80 22:50:00 Test Item Value Reference Range Interpretation Comments RBC (test code = RBC) 4.68 4.20-5.40 N [facility] CenterPganlnaGFKYXPPULZ6594-55-62 22:50:00 Test Item Value Reference Range Interpretation Comments Basophils # (test code 0.0 See_Comment N [Aut omated message] The = Basophils #) system which generated this result tra nsmitted reference range : <=0.2. The reference r leo was not used to int erpret this result as normal/abnormal . [facility] CenterVpfexesRAJHOKYHRT3052-60-34 22:50:00 Test Item Value Reference Range Interpretation Comments Basophils (test code = 0.2 See_Comment N [Aut omated message] The Basophils) system which ge nerated this result tra nsmitted reference range : <=1.0. The reference r leo was not used to int erpret this result as normal/abnormal . [facility] CenterXkxozhpHILNNAIRHT5206-18-17 22:50:00 Test Item Value Reference Range Interpretation Comments Eosinophils # (test code 0.0 See_Comment N [A utomated message] The = Eosinophils #) system whic h generated this result tra nsmitted reference range : <=0.5. The reference r leo was not used to int erpret this result as normal/abnormal . [facility] CenterLbhstahBMECIRROKT7746-04-09 22:50:00 Test Item Value Reference Range Interpretation Comments Monocytes # (test code 0.4 See_Comment N [Aut omated message] The = Monocytes #) system which generated this result tra nsmitted reference range : <=0.8. The reference r leo was not used to int erpret this result as normal/abnormal . [facility] CenterGsbiisoTFYDRCMFLG4793-77-56 22:50:00 Test Item Value Reference Range Interpretation Comments Segs-Bands # (test code = Segs-Bands #) 10.6 1.5-8.1 H [facility] CenterTdxefscCTOQOBQGWA6775-49-76 22:50:00 Test Item Value Reference Range Interpretation Comments Lymphocytes # (test code = Lymphocytes 0.7 1.0-5.5 L #) [facility] CenterIgjmbtcUXZBOTLFKK5790-16-99 22:50:00 Test Item Value Reference Range Interpretation Comments Monocytes (test code = Monocytes) 3.4 2.0-12.0 N [facility] CenterFwwiwdsTIBYJTUEYX3119-21-24 22:50:00 Test Item Value Reference Range Interpretation Comments Plt Morph (test code = Normal (03/14/2012 N Plt Morph) 17:50:00) [facility] CenterXcjgxdpQPMPIMKSLO5569-19-53 22:50:00 Test Item Value Reference Range Interpretation Comments Lymphocytes (test code = Lymphocytes) 6.0 20.0-40.0 L [facility] CenterYnwatasKKSZEVHZGD7891-13-86 22:50:00 Test Item Value Reference Range Interpretation Comments Eosinophils (test code = 0.0 See_Comment N [A utomated message] The Eosinophils) system which ge nerated this result tra nsmitted reference range : <=4.0. The reference r leo was not used to int erpret this result as normal/abnormal . [facility] CenterYwlhhdwUTMHKCTQBH3981-03-74 22:50:00 Test Item Value Reference Range Interpretation Comments Segs (test code = Segs) 90.4 45.0-75.0 H [facility] CenterNxudogySQQHWSTHXB7807-96-55 22:50:00 Test Item Value Reference Range Interpretation Comments RBC Morph (test code = Normal (03/14/2012 N RBC Morph) 17:50:00) [facility]LEYSIDE GLUCOSE IYCHZSU1891-37-81 23:43:00 Test Item Value Reference Range Interpretation Comments Gluc POC Lifscn (test code = Gluc POC 167 70-99 H Lifscn) [facility] GLUCOSE HKWFFFT6482-42-61 23:43:00 Test Item Value Reference Range Interpretation Comments Comment1 (test code = Comment1) Not[facility] RN/ [facility] GLU[facility] YMZALZM4870-77-79 23:43:00 Test Item Value Reference Range Interpretation Comments Comment2 (test code = Comment2) Sliding Scale [facility] GLU[facility] MEGVSCK4709-42-70 17:40:00 Test Item Value Reference Range Interpretation Comments Gluc POC Lifscn (test code = Gluc POC 189 70-99 H Lifscn) [facility] GLUCOSE BCBPOEP8340-05-53 17:40:00 Test Item Value Reference Range Interpretation Comments Comment1 (test code = Comment1) [facility] RN/ [facility] GLU[facility] LEURXBH3218-23-28 17:40:00 Test Item Value Reference Range Interpretation Comments Comment2 (test code = Comment2) Sliding Scale [facility]annEN[facility] VALLEYSIDE GLUCOSE GTCAKTC7459-40-47 13:34:00 Test Item Value Reference Range Interpretation Comments Comment2 (test code = Comment2) Sliding Scale [facility]annEN[facility] VALLEYSIDE GLUCOSE WWXJDTZ4380-14-11 13:34:00 Test Item Value Reference Range Interpretation Comments Gluc POC Lifscn (test code = Gluc POC 110 70-99 H Lifscn) [facility] GLUCOSE ITDTBSU7686-37-85 13:34:00 Test Item Value Reference Range Interpretation Comments Comment1 (test code = Comment1) Notify TABATHA/ [facility] SouthEqsgwbhIXNFAFLZU0915-28-45 00:00:00 Test Item Value Reference Range Interpretation Comments U Preg (test code = U Negative (11/28/2011 N Preg) 19:00:00) [facility] SouthWsprwugKRAXPPNTUY4705-16-77 00:00:00 Test Item Value Reference Range Interpretation Comments Micro? (test code = Performed (11/28/2011 N Micro?) 19:00:00) [facility] SouthYcfmfcrMVKGPYUUUW9959-85-44 00:00:00 Test Item Value Reference Range Interpretation Comments UA Sq Epi (test code Occasional /LPF N = UA Sq Epi) (11/28/2011 19:00:00) [facility] CenterNmfntjrYXSBFEJRHW1527-51-24 00:00:00 Test Item Value Reference Range Interpretation Comments UA RBC (test None Seen See_Comment N [Automated mes pastor] code = UA RBC) (11/28/2011 The system wh ich 19:00:00) generated this result transmitted ref erence range: <=2. The reference range was not used to int erpret this result as normal/abnormal . [facility]anoSgdlzvqPFXTIETBOW8930-07-21 00:00:00 Test Item Value Reference Range Interpretation Comments UA WBC (test code Occasional See_Comment [Automate d message] The = UA WBC) system which ge nerated this result tra nsmitted reference range : <=5. The reference range was not used to interpr et this result as normal/abnormal . [facility]anoXzshhmrLTRODASMTJ8463-76-64 00:00:00 Test Item Value Reference Range Interpretation Comments UA Protein (test code Negative mg/dL N = UA Protein) (11/28/2011 19:00:00) [facility] CenterDybcebdKKZOVIIGAC4079-33-23 00:00:00 Test Item Value Reference Range Interpretation Comments UA pH (test code = UA pH) 7.0 1 5.0-8.0 N [facility] PlanoHptkfsgHCFRIDQDHN6354-33-48 00:00:00 Test Item Value Reference Range Interpretation Comments UA Spec Grav (test code = UA Spec 1.020 1 N Grav) [facility] PlanoLbvlnxoQZSXMNAXAJ6811-34-12 00:00:00 Test Item Value Reference Range Interpretation Comments UA Turbidity (test code = Clear (11/28/2011 N UA Turbidity) 19:00:00) [facility] PlanoNceydfwTUKCQFYFWF0369-41-07 00:00:00 Test Item Value Reference Range Interpretation Comments UA Color (test code = Yellow *NA*(11/28/2011 UA Color) 19:00:00) [facility] PlanoNegkinpSKDEWNSUIL9893-55-04 00:00:00 Test Item Value Reference Range Interpretation Comments UA Urobilinogen (test code = UA 0.2 0.1-1.0 N Urobilinogen) [facility] PlanoJhgwblrXMBPCMCFQP6168-67-17 00:00:00 Test Item Value Reference Range Interpretation Comments UA Blood (test code = Negative (11/28/2011 N UA Blood) 19:00:00) [facility] CenterZvmuczeKDPQZBXXTD3528-96-13 00:00:00 Test Item Value Reference Range Interpretation Comments UA Bili (test code = Negative *NA*(11/28/2011 UA Bili) 19:00:00) [facility] PlanoIivlsraTXWHIAHKZR0084-59-10 00:00:00 Test Item Value Reference Range Interpretation Comments UA Ketones (test code = >=80 mg/dL A UA Ketones) *ABN*(11/28/2011 19:00:00) [facility] CenterOwpantbCWBHIXSCEQ6084-50-63 00:00:00 Test Item Value Reference Range Interpretation Comments UA Glucose (test code = >=1000 mg/dL A UA Glucose) *ABN*(11/28/2011 19:00:00) [facility] PlanoZbxxtoyIPUFNAWHWK7833-59-91 00:00:00 Test Item Value Reference Range Interpretation Comments UA Nitrite (test code Negative (11/28/2011 N = UA Nitrite) 19:00:00) [facility] CenterXvmgfcxUPCVXXJZKP0142-33-46 00:00:00 Test Item Value Reference Range Interpretation Comments UA Leuk Est (test Negative (11/28/2011 N code = UA Leuk Est) 19:00:00) [facility]WrzmychXNIAEKYLW2744-61-75 20:41:00 Test Item Value Reference Range Interpretation Comments pO2 Roberth (test code = pO2 Roberth) 60 20-49 H [facility]iscoKqjitkuIPJOGICVM1490-61-11 20:41:00 Test Item Value Reference Range Interpretation Comments pCO2 Roberth (test code = pCO2 Roberth) 41 38-52 N [facility]iscoZumdrcwPSSQMLGLM1477-56-10 20:41:00 Test Item Value Reference Range Interpretation Comments pH Roberth (test code = pH Roberth) 7.45 7.28-7.42 [facility]WhhdmukGKREDKAWJ8397-12-54 20:41:00 Test Item Value Reference Range Interpretation Comments Temp Roberth (test code = Temp Roberth) 37.0 [facility]OceahywDHRIAODNQ7121-55-87 20:41:00 Test Item Value Reference Range Interpretation Comments O2 Sat Roberth (test code = O2 Sat Roberth) 92.0 40.0-70.0 H [facility]iscoOrjlvefCXBVFGRAY3277-29-19 20:41:00 Test Item Value Reference Range Interpretation Comments BE Roberth (test code = 4 See_Comment H [Automa rohit message] The BE Roberth) system which ge nerated this result transmit rohit reference range : <=2. The reference range was not used to interpr et this result as reji l/abnormal. [facility]iscoDryetfxNQBQPDJOR2622-14-40 20:41:00 Test Item Value Reference Range Interpretation Comments HCO3 Roberth (test code = HCO3 Roberth) 28.5 22.0-26.0 H [facility]iscoLzchduzOQXWICYHH3097-08-22 20:00:00 Test Item Value Reference Range Interpretation Comments Lactic Acid Lvl (test code = Lactic 1.6 0.5-2.2 N Acid Lvl) [facility]iscoNajwagkCVWTTWCIT1842-55-01 20:00:00 Test Item Value Reference Range Interpretation Comments Lipase Lvl (test code = Lipase Lvl) 125 73-393 N [facility]iscoUjvgdrvYDKRQWFRX9157-40-23 20:00:00 Test Item Value Reference Range Interpretation Comments Albumin Lvl (test code = Albumin Lvl) 4.2 3.5-5.0 N [facility]iscoKdbtrbtKMBBGEUKE9282-14-19 20:00:00 Test Item Value Reference Range Interpretation Comments CO2 (test code = CO2) 23 24-32 L [facility]iscoXexglctDOJBTGALR7909-68-86 20:00:00 Test Item Value Reference Range Interpretation Comments Chloride Lvl (test code = Chloride Lvl) 98 95-109 N [facility]iscoEoqbleqLUDVCZMBM6946-69-04 20:00:00 Test Item Value Reference Range Interpretation Comments Potassium Lvl (test code = Potassium 3.8 3.5-5.1 N Lvl) [facility]iscoRvvzjqgQOFBPSCBB3856-36-16 20:00:00 Test Item Value Reference Range Interpretation Comments Sodium Lvl (test code = Sodium Lvl) 138 135-145 N [facility]iscoZgwbdcsLKRRLWZDV7483-00-34 20:00:00 Test Item Value Reference Range Interpretation Comments Creatinine Lvl (test code = Creatinine 0.7 0.5-1.4 N Lvl) [facility]iscoJgcouvkHACXUTLKN9689-96-38 20:00:00 Test Item Value Reference Range Interpretation Comments BUN (test code = BUN) 9 7-22 N [facility]iscoFdrsogoTGWLHZEBK8716-30-47 20:00:00 Test Item Value Reference Range Interpretation Comments Glucose Lvl (test code = Glucose Lvl) 269 70-99 H [facility]iscoHewiuzcQGTLEGKHZ6061-81-39 20:00:00 Test Item Value Reference Range Interpretation Comments B/C Ratio (test code = B/C Ratio) 13 6-25 N [facility]iscoZeibpxnUQCJKJIPA2957-77-54 20:00:00 Test Item Value Reference Range Interpretation Comments AGAP (test code = AGAP) 20.8 10.0-20.0 H [facility]iscoKeizwztBTBKFFIIR3490-01-50 20:00:00 Test Item Value Reference Range Interpretation Comments Calcium Lvl (test code = Calcium Lvl) 9.3 8.5-10.5 N [facility]iscoGxilnxpIVBENKTAR1868-58-19 20:00:00 Test Item Value Reference Range Interpretation Comments Total Protein (test code = Total 6.7 6.4-8.4 N Protein) [facility]iscoLnfyhjeWRAHDCLHM9328-84-53 20:00:00 Test Item Value Reference Range Interpretation Comments A/G Ratio (test code = A/G Ratio) 1.7 0.7-1.6 H [facility]iscoXpkmivdTRJMAJMDH1277-58-18 20:00:00 Test Item Value Reference Range Interpretation Comments Globulin (test code = Globulin) 2.5 2.0-4.0 N [facility]iscoSxcmcddLALQMNFPP3130-55-03 20:00:00 Test Item Value Reference Range Interpretation Comments AST (test code = AST) 18 See_Comment N [Auto mated message] The system which ge nerated this result transmit rohit reference range : <=37. The reference range was not used to interpr et this result as reji l/abnormal. [facility]iscoNdwfmscKMKXSWZDK7807-81-78 20:00:00 Test Item Value Reference Range Interpretation Comments Alk Phos (test code = Alk Phos) 62 39-136 N [facility]iscoRalmsgrVGQGRBZDU0528-67-40 20:00:00 Test Item Value Reference Range Interpretation Comments ALT (test code = ALT) 32 See_Comment N [Auto mated message] The system which ge nerated this result transmit rohit reference range : <=65. The reference range was not used to interpr et this result as reji l/abnormal. [facility]iscoFlinfywIBUIDVLQP8941-32-97 20:00:00 Test Item Value Reference Range Interpretation Comments Bili Total (test code = Bili Total) 0.7 0.2-1.3 N [facility] CenterTdjemcbQSXKPWQZNE1458-13-86 20:00:00 Test Item Value Reference Range Interpretation Comments Anisocyte (test code = 1+ *ABN*(11/28/2011 A Anisocyte) 15:00:00) [facility] CenterGrfpovwSIVABUGICZ6654-25-61 20:00:00 Test Item Value Reference Range Interpretation Comments Monocytes # (test code 0.1 See_Comment N [Aut omated message] The = Monocytes #) system which generated this result tra nsmitted reference range : <=0.8. The reference r leo was not used to int erpret this result as normal/abnormal . [facility] CenterIhllfldNZAETIOGNR1635-83-82 20:00:00 Test Item Value Reference Range Interpretation Comments Eosinophils # (test code 0.0 See_Comment N [A utomated message] The = Eosinophils #) system whic h generated this result tra nsmitted reference range : <=0.5. The reference r leo was not used to int erpret this result as normal/abnormal . [facility] CenterUdkonemXDSCZLROMJ6610-17-41 20:00:00 Test Item Value Reference Range Interpretation Comments Basophils # (test code 0.0 See_Comment N [Aut omated message] The = Basophils #) system which generated this result tra nsmitted reference range : <=0.2. The reference r leo was not used to int erpret this result as normal/abnormal . [facility] CenterJsnuvgsIKDHYYRKYM0655-08-70 20:00:00 Test Item Value Reference Range Interpretation Comments Neut Vac (test code = Slight *ABN*(11/28/2011 A Neut Vac) 15:00:00) [facility] CenterBdenjbfBTUNOBBMNC4493-94-74 20:00:00 Test Item Value Reference Range Interpretation Comments Large Plt (test code = Slight *ABN*(11/28/2011 A Large Plt) 15:00:00) [facility] CenterBbdwoadYQYZMLXKXO4532-05-81 20:00:00 Test Item Value Reference Range Interpretation Comments Segs-Bands # (test code = Segs-Bands #) 5.7 1.5-8.1 N [facility] CenterLjpwkpkYGGMRBTSSH4358-91-64 20:00:00 Test Item Value Reference Range Interpretation Comments Lymphocytes # (test code = Lymphocytes 0.8 1.0-5.5 L #) [facility] CenterEitqjjnXEECCQHFSQ6036-52-01 20:00:00 Test Item Value Reference Range Interpretation Comments Eosinophils (test code = 0.2 See_Comment N [A utomated message] The Eosinophils) system which ge nerated this result tra nsmitted reference range : <=4.0. The reference r leo was not used to int erpret this result as normal/abnormal . [facility] CenterCqyszsyCDAMBNDOXS8194-58-35 20:00:00 Test Item Value Reference Range Interpretation Comments Basophils (test code = 0.0 See_Comment N [Aut omated message] The Basophils) system which ge nerated this result tra nsmitted reference range : <=1.0. The reference r leo was not used to int erpret this result as normal/abnormal . [facility] CenterVzomiiqLKKEGJUDRA5799-68-62 20:00:00 Test Item Value Reference Range Interpretation Comments Monocytes (test code = Monocytes) 1.9 2.0-12.0 L [facility] CenterJtobllcTCZEKMYEJO4845-81-00 20:00:00 Test Item Value Reference Range Interpretation Comments Segs (test code = Segs) 86.2 45.0-75.0 H [facility] CenterRucxgpwWZNKJOUJFX3080-56-36 20:00:00 Test Item Value Reference Range Interpretation Comments Lymphocytes (test code = Lymphocytes) 11.7 20.0-40.0 L [facility] CenterMkfchunMBJNBTEFIT5077-80-07 20:00:00 Test Item Value Reference Range Interpretation Comments MPV (test code = MPV) 10.8 7.4-10.4 H [facility] CenterTyyyblaNMBAMGGGJE7729-85-89 20:00:00 Test Item Value Reference Range Interpretation Comments Platelet (test code = Platelet) 161 133-450 N [facility] CenterImldrzgQPYSFSQBIZ0166-32-60 20:00:00 Test Item Value Reference Range Interpretation Comments MCHC (test code = MCHC) 35.6 32.0-36.0 N [facility] CenterKdbvyqmJJCUBYNJGB4918-90-19 20:00:00 Test Item Value Reference Range Interpretation Comments RDW (test code = RDW) 12.4 11.5-14.5 N [facility] CenterTgkhgavOGHGUYXXPQ9485-10-57 20:00:00 Test Item Value Reference Range Interpretation Comments MCH (test code = MCH) 30.7 pg 27.0-31.0 N [facility] CenterIrmsknlQDRVCHKDMZ6541-53-58 20:00:00 Test Item Value Reference Range Interpretation Comments MCV (test code = MCV) 86.1 81.0-99.0 N [facility] CenterIywjjwvPHDILZGOCL9252-95-03 20:00:00 Test Item Value Reference Range Interpretation Comments Hct (test code = Hct) 33.6 36.0-48.0 L [facility] CenterRsibqmxOPVXNDRLRC6590-29-85 20:00:00 Test Item Value Reference Range Interpretation Comments Hgb (test code = Hgb) 12.0 12.0-16.0 N [facility] CenterUdbbjlaNWWOWGPXVA3321-11-09 20:00:00 Test Item Value Reference Range Interpretation Comments RBC (test code = RBC) 3.90 4.20-5.40 L [facility] CenterDixousiYRRYEEISUF5679-93-67 20:00:00 Test Item Value Reference Range Interpretation Comments WBC (test code = WBC) 6.6 3.7-10.4 N [facility]DwzymqpRJYAHHDIC4982-81-80 19:51:00 Test Item Value Reference Range Interpretation Comments UDS Note (test code = See Note UDS Note) 5*NA*(11/28/2011 14:51:00) [facility]iscoScressfSXVSXXUAZ7451-08-78 19:51:00 Test Item Value Reference Range Interpretation Comments U Phencyc Scr (test Negative code = U Phencyc Scr) *NA*(11/28/2011 14:51:00) [facility]iscoGpkpimaZARIQJDZC5394-39-52 19:51:00 Test Item Value Reference Range Interpretation Comments U Kelly Scr (test code Negative *NA*(11/28/2011 = U Kelly Scr) 14:51:00) [facility]iscoNexvpbjEJGHQCWTM7845-57-87 19:51:00 Test Item Value Reference Range Interpretation Comments U Amph Scr (test code Negative *NA*(11/28/2011 = U Amph Scr) 14:51:00) [facility]iscoYhzcjerKNAZAPWDY8569-04-86 19:51:00 Test Item Value Reference Range Interpretation Comments U Opiate Scr (test Negative code = U Opiate Scr) *NA*(11/28/2011 14:51:00) [facility]iscoYbonuufCSZSRYIDV7399-99-55 19:51:00 Test Item Value Reference Range Interpretation Comments U Cocaine Scr (test Negative code = U Cocaine Scr) *NA*(11/28/2011 14:51:00) [facility]iscoUvyuxcsHSEYCOMZC2826-27-47 19:51:00 Test Item Value Reference Range Interpretation Comments U Cannab Scr (test Negative code = U Cannab Scr) *NA*(11/28/2011 14:51:00) [facility]iscoVfacyogVBNEYZDWV8588-71-77 19:51:00 Test Item Value Reference Range Interpretation Comments U Benzodia Scr (test Negative code = U Benzodia Scr) *NA*(11/28/2011 14:51:00) [facility] GLUCOSE WVBJUMP3776-85-03 16:20:00 Test Item Value Reference Range Interpretation Comments Comment1 (test code = Comment1) Notify RN/MD [facility] GLUCOSE IUMXUDX5836-78-56 16:20:00 Test Item Value Reference Range Interpretation Comments Gluc POC Lifscn (test code = Gluc POC 328 70-99 H Lifscn) [facility]GxiwcqcJMRZHWRFJ7614-25-38 15:30:00 Test Item Value Reference Range Interpretation Comments U Preg (test code = U Negative (09/18/2011 N Preg) 10:30:00) [facility]PtnsixwEFCMALPWXW2315-73-72 15:30:00 Test Item Value Reference Range Interpretation Comments UA WBC (test code = UA None Seen (09/18/2011 N WBC) 10:30:00) [facility] CenterVqsuokzVTIQEJHYFL5820-88-15 15:30:00 Test Item Value Reference Range Interpretation Comments UA RBC (test None Seen See_Comment N [Automated mes pastor] code = UA RBC) (09/18/2011 The system ich 10:30:00) generated this result transmitted ref erence range: <=2. The reference range was not used to int erpret this result as normal/abnormal . [facility] CenterRljeojcDLWJISFJVB7318-63-00 15:30:00 Test Item Value Reference Range Interpretation Comments UA Bacteria (test code = None Seen (09/18/2011 N UA Bacteria) 10:30:00) [facility]UtljwqfYETDTYCHOJ2517-76-30 15:30:00 Test Item Value Reference Range Interpretation Comments UA Amorph Destiny (test Few /HPF A code = UA Amorph Destiny) *ABN*(09/18/2011 10:30:00) [facility]anoDujcomqQSHXDNSUZA1324-74-17 15:30:00 Test Item Value Reference Range Interpretation Comments Micro? (test code = Performed (09/18/2011 N Micro?) 10:30:00) [facility]OhxkylnPEWTEGGBSI2537-54-87 15:30:00 Test Item Value Reference Range Interpretation Comments UA Sq Epi (test code = Rare /LPF (09/18/2011 N UA Sq Epi) 10:30:00) [facility] CenterThlffjyHGVOGUQHYL9461-42-76 15:30:00 Test Item Value Reference Range Interpretation Comments UA Ketones (test code = 15 mg/dL A UA Ketones) *ABN*(09/18/2011 10:30:00) [facility] CenterUwwffgzWEQBMKCZCQ1010-87-14 15:30:00 Test Item Value Reference Range Interpretation Comments UA Glucose (test code = >=1000 mg/dL A UA Glucose) *ABN*(09/18/2011 10:30:00) [facility] CenterLjgbbseVGXSCEGKSV2473-82-13 15:30:00 Test Item Value Reference Range Interpretation Comments UA Protein (test code = Trace A UA Protein) *ABN*(09/18/2011 10:30:00) [facility] CenterVyadnlbTZZLNVQOEQ7397-27-62 15:30:00 Test Item Value Reference Range Interpretation Comments UA Urobilinogen (test code = UA 0.2 0.1-1.0 N Urobilinogen) [facility] CenterNnvgoeuRNXITGSILQ6967-65-25 15:30:00 Test Item Value Reference Range Interpretation Comments UA Blood (test code = Negative (09/18/2011 N UA Blood) 10:30:00) [facility] CenterHgthokcEXDKARRCDU0660-42-21 15:30:00 Test Item Value Reference Range Interpretation Comments UA Bili (test code = Negative *NA*(09/18/2011 UA Bili) 10:30:00) [facility] CenterVuvfatdXEULCAESOX2498-65-42 15:30:00 Test Item Value Reference Range Interpretation Comments UA Leuk Est (test Negative (09/18/2011 N code = UA Leuk Est) 10:30:00) [facility] CenterVassjvoXVRAQONLEE0744-11-88 15:30:00 Test Item Value Reference Range Interpretation Comments UA Nitrite (test code Negative (09/18/2011 N = UA Nitrite) 10:30:00) [facility] CenterZzikuczYPQYJDDGKO9814-44-60 15:30:00 Test Item Value Reference Range Interpretation Comments UA pH (test code = UA pH) 7.5 1 5.0-8.0 N [facility] CenterQzribjsZQUQPHJNSU8377-25-00 15:30:00 Test Item Value Reference Range Interpretation Comments UA Spec Grav (test code = UA Spec 1.010 1 N Grav) [facility]anoKbnncolCYJHIOSIZR1236-72-91 15:30:00 Test Item Value Reference Range Interpretation Comments UA Turbidity (test code Slight Cloudy N = UA Turbidity) (09/18/2011 10:30:00) [facility]anoLrghdeoPWLMICVFBG3751-28-03 15:30:00 Test Item Value Reference Range Interpretation Comments UA Color (test code = Yellow *NA*(09/18/2011 UA Color) 10:30:00) [facility]ZsrqngjRVQZKFWUJ5752-58-82 14:07:00 Test Item Value Reference Range Interpretation Comments Phosphorus (test code = Phosphorus) 4.4 2.5-4.5 N [facility]iscoEkcpwhwIYATMXOTB0163-75-11 14:07:00 Test Item Value Reference Range Interpretation Comments Magnesium Lvl (test code = Magnesium 1.6 1.8-2.4 L Lvl) [facility] CEJPPMT3650-43-49 14:01:00 Test Item Value Reference Range Interpretation Comments Gluc POC Lifscn (test code = Gluc POC no gt 70-99 A Lifscn) [facility]iscoZndoioxPUGPSVICJ0336-45-40 13:52:00 Test Item Value Reference Range Interpretation Comments pO2 Roberth (test code = pO2 Roberth) 24 20-49 N [facility]iscoXzemuqcQLVNOKTKM9805-02-38 13:52:00 Test Item Value Reference Range Interpretation Comments HCO3 Roberth (test code = HCO3 Roberth) 32.0 22.0-26.0 H [facility]iscoAosvncdETZZAGFKW1008-58-41 13:52:00 Test Item Value Reference Range Interpretation Comments pCO2 Roberth (test code = pCO2 Roberth) 44 38-52 N [facility]iscoIqifuatLZAYZEEUZ4195-49-31 13:52:00 Test Item Value Reference Range Interpretation Comments BE Roberth (test code = 7 See_Comment H [Automa rohit message] The BE Roberth) system which ge nerated this result transmit rohit reference range : <=2. The reference range was not used to interpr et this result as reji l/abnormal. [facility]iscoYlgcuykTBPNDYFXE3423-81-75 13:52:00 Test Item Value Reference Range Interpretation Comments O2 Sat Roberth (test code = O2 Sat Roberth) 48.0 40.0-70.0 N [facility]iscoKnjgajhGFPIYAXOS6871-96-98 13:52:00 Test Item Value Reference Range Interpretation Comments Temp Roberth (test code = Temp Roberth) 37.0 [facility]iscoSrcoonoHTOQUMLJK5083-76-39 13:52:00 Test Item Value Reference Range Interpretation Comments pH Roberth (test code = pH Roberth) 7.47 7.28-7.42 H [facility]iscoKbazlgtXOBBRHEQL2648-66-97 13:52:00 Test Item Value Reference Range Interpretation Comments Calcium Lvl (test code = Calcium Lvl) 10.1 8.5-10.5 N [facility]iscoUzpgnxqBLWNTBTKC6892-79-14 13:52:00 Test Item Value Reference Range Interpretation Comments Chloride Lvl (test code = Chloride Lvl) 92 95-109 L [facility]iscoDcnjjviBNZEAVRDZ2287-90-58 13:52:00 Test Item Value Reference Range Interpretation Comments CO2 (test code = CO2) 30 24-32 N [facility]iscoAveqficACFSXGJTS1991-60-89 13:52:00 Test Item Value Reference Range Interpretation Comments Potassium Lvl (test code = Potassium 3.5 3.5-5.1 N Lvl) [facility]iscoFfeqreiHOITUUMUO3662-99-05 13:52:00 Test Item Value Reference Range Interpretation Comments Sodium Lvl (test code = Sodium Lvl) 133 135-145 L [facility]iscoRhkwtubFZAYZRTOL4425-42-80 13:52:00 Test Item Value Reference Range Interpretation Comments Creatinine Lvl (test code = Creatinine 1.3 0.5-1.4 N Lvl) [facility]iscoXuwdzjvQZESZXRRO7531-68-50 13:52:00 Test Item Value Reference Range Interpretation Comments Glucose Lvl (test code = Glucose Lvl) 383 70-99 H [facility]iscoEexrqwySMHPTHXVF1969-70-96 13:52:00 Test Item Value Reference Range Interpretation Comments BUN (test code = BUN) 17 7-22 N [facility]iscoFlmlyccGFPMYDJIP1618-07-79 13:52:00 Test Item Value Reference Range Interpretation Comments AGAP (test code = AGAP) 14.5 10.0-20.0 N [facility] CenterZhkookiFIHQIEAZSL3518-12-38 13:52:00 Test Item Value Reference Range Interpretation Comments MPV (test code = MPV) 12.0 7.4-10.4 H [facility] CenterVpfjrbvACQPEQYCES5710-58-82 13:52:00 Test Item Value Reference Range Interpretation Comments Platelet (test code = Platelet) 226 133-450 N [facility] CenterXxtbvnqJKJTOBEOYZ5576-95-48 13:52:00 Test Item Value Reference Range Interpretation Comments MCHC (test code = MCHC) 33.7 32.0-36.0 N [facility] CenterLzldxmoUCUYXSAQPJ4390-57-93 13:52:00 Test Item Value Reference Range Interpretation Comments MCH (test code = MCH) 28.5 pg 27.0-31.0 N [facility] CenterLoekkufLHKGEMPCSO7197-35-34 13:52:00 Test Item Value Reference Range Interpretation Comments RDW (test code = RDW) 15.1 11.5-14.5 H [facility] CenterBfqktczGGXFTVIDOC3261-24-65 13:52:00 Test Item Value Reference Range Interpretation Comments MCV (test code = MCV) 84.6 81.0-99.0 N [facility] CenterRmrgfpwKICFFSNEYD3642-05-12 13:52:00 Test Item Value Reference Range Interpretation Comments Hct (test code = Hct) 36.4 36.0-48.0 N [facility] CenterQgfryvmAPQLFIOFYA7688-29-00 13:52:00 Test Item Value Reference Range Interpretation Comments Hgb (test code = Hgb) 12.3 12.0-16.0 N [facility] CenterMepwhneAOAVJJYQSF4617-40-23 13:52:00 Test Item Value Reference Range Interpretation Comments RBC (test code = RBC) 4.30 4.20-5.40 N [facility] CenterBavfegqGEFYMIOGXM9475-37-66 13:52:00 Test Item Value Reference Range Interpretation Comments WBC (test code = WBC) 11.7 3.7-10.4 H [facility] CenterWoenbbyNHGNRTXHLK8786-96-22 13:52:00 Test Item Value Reference Range Interpretation Comments Monocytes (test code = Monocytes) 2.9 2.0-12.0 N [facility] CenterJjrqwfrPHWUTEYXJO1109-86-21 13:52:00 Test Item Value Reference Range Interpretation Comments Eosinophils (test code = 0.2 See_Comment N [A utomated message] The Eosinophils) system which ge nerated this result tra nsmitted reference range : <=4.0. The reference r leo was not used to int erpret this result as normal/abnormal . [facility] CenterXjlgoyaRVODJJOPBU4170-84-59 13:52:00 Test Item Value Reference Range Interpretation Comments Basophils (test code = 0.0 See_Comment N [Aut omated message] The Basophils) system which ge nerated this result tra nsmitted reference range : <=1.0. The reference r leo was not used to int erpret this result as normal/abnormal . [facility] CenterXetllkdSXCSRKHTFV3742-73-71 13:52:00 Test Item Value Reference Range Interpretation Comments Eosinophils # (test code 0.0 See_Comment N [A utomated message] The = Eosinophils #) system whic h generated this result tra nsmitted reference range : <=0.5. The reference r leo was not used to int erpret this result as normal/abnormal . [facility] CenterDvbfxirNVONQEILHI1910-38-60 13:52:00 Test Item Value Reference Range Interpretation Comments Monocytes # (test code 0.3 See_Comment N [Aut omated message] The = Monocytes #) system which generated this result tra nsmitted reference range : <=0.8. The reference r leo was not used to int erpret this result as normal/abnormal . [facility] CenterDhtzdtxFPZLOMFFUF3940-42-19 13:52:00 Test Item Value Reference Range Interpretation Comments Segs (test code = Segs) 92.0 45.0-75.0 H [facility] CenterQrugydzPDMYVHBXEO4853-42-43 13:52:00 Test Item Value Reference Range Interpretation Comments Lymphocytes (test code = Lymphocytes) 4.9 20.0-40.0 L [facility] CenterRwsokyrDWIQUIHFYA5825-80-39 13:52:00 Test Item Value Reference Range Interpretation Comments Spherocyte (test code = Rare A Spherocyte) *ABN*(09/18/2011 08:52:00) [facility] CenterXejprlgGPKXCJUYQU4793-23-14 13:52:00 Test Item Value Reference Range Interpretation Comments Large Plt (test code = Slight *ABN*(09/18/2011 A Large Plt) 08:52:00) [facility] CenterZkmhurrRANZPOJRYW2342-33-08 13:52:00 Test Item Value Reference Range Interpretation Comments Microcyte (test code = 1+ *ABN*(09/18/2011 A Microcyte) 08:52:00) [facility] CenterDgmzoaxVFGLBZWAGE0115-30-05 13:52:00 Test Item Value Reference Range Interpretation Comments Schistocyte (test code = Schistocyte) Rare [facility] CenterBruszywJRITPEECZA1499-52-19 13:52:00 Test Item Value Reference Range Interpretation Comments Macrocyte (test code = 1+ *ABN*(09/18/2011 A Macrocyte) 08:52:00) [facility] CenterVdspaluROZILNRRAB0685-00-92 13:52:00 Test Item Value Reference Range Interpretation Comments Lymphocytes # (test code = Lymphocytes 0.6 1.0-5.5 L #) [facility] CenterNpopawdREZUYOBJFX8620-85-43 13:52:00 Test Item Value Reference Range Interpretation Comments Segs-Bands # (test code = Segs-Bands #) 10.8 1.5-8.1 H [facility] CenterEptgandRAKZUMRKSM2387-09-71 13:52:00 Test Item Value Reference Range Interpretation Comments Basophils # (test code 0.0 See_Comment N [Aut omated message] The = Basophils #) system which generated this result tra nsmitted reference range : <=0.2. The reference r leo was not used to int erpret this result as normal/abnormal . [facility] CenterOqxfutlJADXHPGBDQ1045-63-50 13:52:00 Test Item Value Reference Range Interpretation Comments Anisocyte (test code = 1+ *ABN*(09/18/2011 A Anisocyte) 08:52:00) [facility] CenterXiqozknTSDFTLCDJX3361-52-49 13:52:00 Test Item Value Reference Range Interpretation Comments CDC-HIV 1/2 Ab (test Negative *NA*(09/18/2011 code = CDC-HIV 1/2 08:52:00) Ab) [facility] GLUCOSE [id number] 17:34:00 Test Item Value Reference Range Interpretation Comments Gluc POC Lifscn (test code = Gluc POC 215 70-99 H Lifscn) [facility] GLUCOSE JJFZDRC7204-45-81 17:34:00 Test Item Value Reference Range Interpretation Comments Comment1 (test code = Comment1) Notifcaron PATRICK [facility] GLUCOSE [id number] 11:43:00 Test Item Value Reference Range Interpretation Comments Comment1 (test code = Comment1) Notify DARNELL [facility] GLUCOSE ZYXCHLG7532-93-97 11:43:00 Test Item Value Reference Range Interpretation Comments Gluc POC Lifscn (test code = Gluc POC 91 65-110 N Lifscn) [facility] GLUCOSE [id number] 02:45:00 Test Item Value Reference Range Interpretation Comments Comment1 (test code = Comment1) Notify RN/MD [facility] GLUCOSE [id number] 02:45:00 Test Item Value Reference Range Interpretation Comments Gluc POC Lifscn (test code = Gluc POC 148 65-110 H [facility]) [facility]G8366[facility] 08:47:00 Test Item Value Reference Range Interpretation Comments Sodium Lvl (test code = Sodium Lvl) 143 135-145 N [facility]OlasblqOCCRWTDOW3480-30-43 08:47:00 Test Item Value Reference Range Interpretation Comments Glucose Lvl (test code = Glucose Lvl) 105 [facility]BqzbkssXFOXBMVZP3727-11-60 08:47:00 Test Item Value Reference Range Interpretation Comments CO2 (test code = CO2) 29 24-32 N [facility]VtrwrqsZHUXULKVV9710-55-16 08:47:00 Test Item Value Reference Range Interpretation Comments Chloride Lvl (test code = Chloride Lvl) 103 95-109 N [facility]KmlbohmACIWITFGS8328-61-14 08:47:00 Test Item Value Reference Range Interpretation Comments BUN (test code = BUN) 10 7-22 N [facility]iscoWrbctjcTINZWJHNK0978-46-33 08:47:00 Test Item Value Reference Range Interpretation Comments Potassium Lvl (test code = Potassium 3.8 3.5-5.1 N Lvl) [facility]iscoEosnmarHTLTCXCOK0629-77-41 08:47:00 Test Item Value Reference Range Interpretation Comments Creatinine Lvl (test code = Creatinine 0.6 0.5-1.4 N Lvl) [facility]iscoTlxvuydFEJOVCITQ7834-55-66 08:47:00 Test Item Value Reference Range Interpretation Comments Calcium Lvl (test code = Calcium Lvl) 8.5 8.5-10.5 N [facility]XncxxczNLYZDKLWN6646-06-70 08:47:00 Test Item Value Reference Range Interpretation Comments AGAP (test code = AGAP) 14.8 10.0-20.0 N [facility]OyplwmiYWCAQUHKXB2166-18-36 08:47:00 Test Item Value Reference Range Interpretation Comments MCH (test code = MCH) 28.9 pg 27.0-31.0 N [facility] CenterGyzhivhLFTXWQWVHB0402-48-35 08:47:00 Test Item Value Reference Range Interpretation Comments MCV (test code = MCV) 82.1 81.0-99.0 N [facility] CenterYbxogwiHUOVRXHBGR8967-64-52 08:47:00 Test Item Value Reference Range Interpretation Comments Hct (test code = Hct) 25.9 36.0-48.0 L [facility] CenterChiqdmsOSPTFPFMMR3745-93-28 08:47:00 Test Item Value Reference Range Interpretation Comments Platelet (test code = Platelet) 233 133-450 N [facility] CenterIwmdzwmYDLFRHQPLY0456-27-58 08:47:00 Test Item Value Reference Range Interpretation Comments RDW (test code = RDW) 14.5 11.5-14.5 N [facility] CenterHvklxljYGRMINARJZ3660-90-65 08:47:00 Test Item Value Reference Range Interpretation Comments MCHC (test code = MCHC) 35.2 32.0-36.0 N [facility] CenterUwglthqGGNYRCRWIB4870-51-05 08:47:00 Test Item Value Reference Range Interpretation Comments Hgb (test code = Hgb) 9.1 12.0-16.0 L [facility] CenterRfgapjbSCOZSBQJRK7468-08-38 08:47:00 Test Item Value Reference Range Interpretation Comments RBC (test code = RBC) 3.15 4.20-5.40 L [facility] CenterPvmcjaeTFAKJMMTWO3995-77-94 08:47:00 Test Item Value Reference Range Interpretation Comments MPV (test code = MPV) 9.0 7.4-10.4 N [facility] CenterGqxlbdoRGBUOLGFYJ0909-18-55 08:47:00 Test Item Value Reference Range Interpretation Comments WBC (test code = WBC) 6.3 3.7-10.4 N [facility] CenterSfoarczZQZQMCEHEW0006-54-85 08:47:00 Test Item Value Reference Range Interpretation Comments Eosinophils # (test code 0.0 See_Comment N [A utomated message] The = Eosinophils #) system whic h generated this result tra nsmitted reference range : <=0.5. The reference r leo was not used to int erpret this result as normal/abnormal . [facility] CenterIfdprbnRNVRQSTGSH8989-76-93 08:47:00 Test Item Value Reference Range Interpretation Comments Basophils # (test code 0.0 See_Comment N [Aut omated message] The = Basophils #) system which generated this result tra nsmitted reference range : <=0.2. The reference r leo was not used to int erpret this result as normal/abnormal . [facility] CenterIcnrnmgUFBBCNPRRD9713-56-70 08:47:00 Test Item Value Reference Range Interpretation Comments Segs-Bands # (test code = Segs-Bands #) 3.8 1.5-8.1 N [facility] CenterTnomemxNYFGIOEUOF6355-21-17 08:47:00 Test Item Value Reference Range Interpretation Comments Lymphocytes # (test code = Lymphocytes 2.0 1.0-5.5 N #) [facility] CenterWgnfpxgOONPRKUDXW1380-06-37 08:47:00 Test Item Value Reference Range Interpretation Comments Basophils (test code = 0.5 See_Comment N [Aut omated message] The Basophils) system which ge nerated this result tra nsmitted reference range : <=1.0. The reference r leo was not used to int erpret this result as normal/abnormal . [facility] CenterYhtxojhBJEOEOILWN9519-54-43 08:47:00 Test Item Value Reference Range Interpretation Comments Eosinophils (test code = 0.7 See_Comment N [A utomated message] The Eosinophils) system which ge nerated this result tra nsmitted reference range : <=4.0. The reference r leo was not used to int erpret this result as normal/abnormal . [facility] CenterAirvrqeRTODGJHPLH7991-28-62 08:47:00 Test Item Value Reference Range Interpretation Comments Monocytes (test code = Monocytes) 6.2 2.0-12.0 N [facility] CenterDhkcbsfZJAJZCGNNC3505-83-64 08:47:00 Test Item Value Reference Range Interpretation Comments Segs (test code = Segs) 61.1 45.0-75.0 N [facility] CenterXnhgsfsSTGHHGSITB3302-20-96 08:47:00 Test Item Value Reference Range Interpretation Comments Lymphocytes (test code = Lymphocytes) 31.5 20.0-40.0 N [facility] CenterXtpdbypQOSPFCJKYQ4078-12-93 08:47:00 Test Item Value Reference Range Interpretation Comments Monocytes # (test code 0.4 See_Comment N [Aut omated message] The = Monocytes #) system which generated this result tra nsmitted reference range : <=0.8. The reference r leo was not used to int erpret this result as normal/abnormal . [facility]QjmlnqaUMQIVLAYL5192-33-68 10:54:00 Test Item Value Reference Range Interpretation Comments CO2 (test code = CO2) 27 24-32 N [facility]iscoCfslzydMZKWWAGZQ5856-38-35 10:54:00 Test Item Value Reference Range Interpretation Comments Chloride Lvl (test code = Chloride Lvl) 104 95-109 N [facility]iscoZnxdcgwUOWNJQCBL5802-45-62 10:54:00 Test Item Value Reference Range Interpretation Comments Creatinine Lvl (test code = Creatinine 0.5 0.5-1.4 N Lvl) [facility]iscoToszroqUKDEYCFEF1905-27-10 10:54:00 Test Item Value Reference Range Interpretation Comments BUN (test code = BUN) 10 7-22 N [facility]iscoPqgusbyPHFJHBGPC5934-15-68 10:54:00 Test Item Value Reference Range Interpretation Comments Potassium Lvl (test code = Potassium 4.1 3.5-5.1 N Lvl) [facility]iscoWqnuiwdBCVETQUAE8164-38-18 10:54:00 Test Item Value Reference Range Interpretation Comments Sodium Lvl (test code = Sodium Lvl) 141 135-145 N [facility]iscoOvwromyITKUZTTWG5928-25-54 10:54:00 Test Item Value Reference Range Interpretation Comments Glucose Lvl (test code = Glucose Lvl) 83 [facility]PwdkafsQMQTGSLKL8342-52-61 10:54:00 Test Item Value Reference Range Interpretation Comments Calcium Lvl (test code = Calcium Lvl) 8.4 8.5-10.5 L [facility]iscoJnkrcgxDTYRWWGGV4005-29-46 10:54:00 Test Item Value Reference Range Interpretation Comments AGAP (test code = AGAP) 14.1 10.0-20.0 N [facility] CenterCpiggglUGLSGCEBAX0377-70-27 10:54:00 Test Item Value Reference Range Interpretation Comments Hct (test code = Hct) 35.5 36.0-48.0 L [facility] CenterSxnwaaoRELGAAMJXN3878-65-70 10:54:00 Test Item Value Reference Range Interpretation Comments WBC (test code = WBC) 4.7 3.7-10.4 N [facility] CenterRxsxtcyZFPKFQJYCE7020-37-06 10:54:00 Test Item Value Reference Range Interpretation Comments MCV (test code = MCV) 92.6 81.0-99.0 N [facility] CenterOiboaliIGSZVHIKPO0723-33-98 10:54:00 Test Item Value Reference Range Interpretation Comments MCH (test code = MCH) 31.4 pg 27.0-31.0 H [facility] CenterQhyyugbJDGVOUALIY0200-77-01 10:54:00 Test Item Value Reference Range Interpretation Comments RBC (test code = RBC) 3.84 4.20-5.40 L [facility] CenterOkpeaaaEBVMDSUOAP7161-32-44 10:54:00 Test Item Value Reference Range Interpretation Comments Hgb (test code = Hgb) 12.1 12.0-16.0 N [facility] CenterOidzowfDIZYAOVRBC9796-35-47 10:54:00 Test Item Value Reference Range Interpretation Comments Platelet (test code = Platelet) 287 133-450 N [facility] CenterJvawnrlVSMQOQDQBX8951-04-97 10:54:00 Test Item Value Reference Range Interpretation Comments RDW (test code = RDW) 12.7 11.5-14.5 N [facility] CenterRteiozkIVVHBQTCLC4989-38-53 10:54:00 Test Item Value Reference Range Interpretation Comments MCHC (test code = MCHC) 33.9 32.0-36.0 N [facility] CenterHbehqcqGVUJJLMLKO3287-47-48 10:54:00 Test Item Value Reference Range Interpretation Comments MPV (test code = MPV) 7.2 7.4-10.4 L [facility] CenterLoxmzqrWSNBDWZSWP6703-86-32 10:54:00 Test Item Value Reference Range Interpretation Comments INR (test code = INR) 0.95 0.85-1.17 N [facility] CenterKzyjptmOLCHTXLRHL3418-58-57 10:54:00 Test Item Value Reference Range Interpretation Comments PT (test code = PT) 12.7 s 12.0-14.7 N [facility] CenterKvegvduDLWDQYRJHJ1278-07-42 10:54:00 Test Item Value Reference Range Interpretation Comments PTT (test code = PTT) 28.5 s 22.9-35.8 N [facility] CenterZagfkgbLWVELXSTUG4098-73-99 10:54:00 Test Item Value Reference Range Interpretation Comments Eosinophils # (test code 0.1 See_Comment N [A utomated message] The = Eosinophils #) system ic h generated this result tra nsmitted reference range : <=0.5. The reference r leo was not used to int erpret this result as normal/abnormal . [facility] CenterSbnzthcHPCVWQQFXZ4461-92-80 10:54:00 Test Item Value Reference Range Interpretation Comments Basophils # (test code 0.0 See_Comment N [Aut omated message] The = Basophils #) system which generated this result tra nsmitted reference range : <=0.2. The reference r leo was not used to int erpret this result as normal/abnormal . [facility] CenterYvofcesDEKWWTAGKK1882-33-13 10:54:00 Test Item Value Reference Range Interpretation Comments Basophils (test code = 0.4 See_Comment N [Aut omated message] The Basophils) system which ge nerated this result tra nsmitted reference range : <=1.0. The reference r leo was not used to int erpret this result as normal/abnormal . [facility] CenterBgdivakZMDUMQMHLC4532-86-67 10:54:00 Test Item Value Reference Range Interpretation Comments Segs-Bands # (test code = Segs-Bands #) 2.1 1.5-8.1 N [facility] CenterImjvkwrIIEBFLCKDT6320-35-79 10:54:00 Test Item Value Reference Range Interpretation Comments Monocytes (test code = Monocytes) 9.0 2.0-12.0 N [facility] CenterOtuqvpnLZECMHZJDZ8209-08-94 10:54:00 Test Item Value Reference Range Interpretation Comments Eosinophils (test code = 2.4 See_Comment N [A utomated message] The Eosinophils) system which ge nerated this result tra nsmitted reference range : <=4.0. The reference r leo was not used to int erpret this result as normal/abnormal . [facility] CenterLjfogdjQXITRKDFTL4401-38-14 10:54:00 Test Item Value Reference Range Interpretation Comments Monocytes # (test code 0.4 See_Comment N [Aut omated message] The = Monocytes #) system which generated this result tra nsmitted reference range : <=0.8. The reference r leo was not used to int erpret this result as normal/abnormal . [facility] CenterXoxvdrfVWKJIYEIYZ4346-78-80 10:54:00 Test Item Value Reference Range Interpretation Comments Lymphocytes # (test code = Lymphocytes 2.0 1.0-5.5 N #) [facility] CenterJrnoypuMVEEGMIFTX7293-33-82 10:54:00 Test Item Value Reference Range Interpretation Comments Lymphocytes (test code = Lymphocytes) 42.8 20.0-40.0 H [facility] CenterLhtbdlaVNLFIADDKD6748-32-80 10:54:00 Test Item Value Reference Range Interpretation Comments Segs (test code = Segs) 45.4 45.0-75.0 N [facility]XxbkgtlIEATKTLOH3217-49-24 10:02:00 Test Item Value Reference Range Interpretation Comments Chloride Lvl (test code = Chloride Lvl) 105 95-109 N [facility]iscoOyhhmudLNBVZJKAX7119-85-59 10:02:00 Test Item Value Reference Range Interpretation Comments Potassium Lvl (test code = Potassium 4.1 3.5-5.1 N Lvl) [facility]MgcuoyhZHEGGKEZQ2101-40-41 10:02:00 Test Item Value Reference Range Interpretation Comments Sodium Lvl (test code = Sodium Lvl) 143 135-145 N [facility]iscoTnpomgoFROLYLUWA6498-08-39 10:02:00 Test Item Value Reference Range Interpretation Comments CO2 (test code = CO2) 29 24-32 N [facility]iscoKkyjuizDPMUWDVAJ1992-90-37 10:02:00 Test Item Value Reference Range Interpretation Comments Calcium Lvl (test code = Calcium Lvl) 8.7 8.5-10.5 N [facility]iscoLoryfzcHNCNCMMFB6392-50-79 10:02:00 Test Item Value Reference Range Interpretation Comments BUN (test code = BUN) 6 7-22 L [facility]iscoPmiaortNDCHJRMJQ8311-49-57 10:02:00 Test Item Value Reference Range Interpretation Comments Creatinine Lvl (test code = Creatinine 0.6 0.5-1.4 N Lvl) [facility]iscoCqhgkmmWMNAWVXKR8667-79-74 10:02:00 Test Item Value Reference Range Interpretation Comments Glucose Lvl (test code = Glucose Lvl) 118 [facility]iscoNvogocbTUESQYINX8548-54-16 10:02:00 Test Item Value Reference Range Interpretation Comments AGAP (test code = AGAP) 13.1 10.0-20.0 N [facility] CenterAtarcgsXHKCJKYNPT7503-93-39 10:02:00 Test Item Value Reference Range Interpretation Comments Basophils # (test code 0.0 See_Comment N [Aut omated message] The = Basophils #) system which generated this result tra nsmitted reference range : <=0.2. The reference r leo was not used to int erpret this result as normal/abnormal . [facility] CenterLxzpygsFVUTDTSAZT2525-72-32 10:02:00 Test Item Value Reference Range Interpretation Comments Monocytes # (test code 0.3 See_Comment N [Aut omated message] The = Monocytes #) system which generated this result tra nsmitted reference range : <=0.8. The reference r leo was not used to int erpret this result as normal/abnormal . [facility] CenterEmyonmpXQJJDIWNET3828-95-94 10:02:00 Test Item Value Reference Range Interpretation Comments Eosinophils # (test code 0.1 See_Comment N [A utomated message] The = Eosinophils #) system whic h generated this result tra nsmitted reference range : <=0.5. The reference r leo was not used to int erpret this result as normal/abnormal . [facility] CenterRbohvmjXOTPWFNGOY1111-37-46 10:02:00 Test Item Value Reference Range Interpretation Comments Segs-Bands # (test code = Segs-Bands #) 2.8 1.5-8.1 N [facility] CenterWzwurgnIFNFCBSPHQ5684-45-65 10:02:00 Test Item Value Reference Range Interpretation Comments Lymphocytes # (test code = Lymphocytes 1.7 1.0-5.5 N #) [facility] CenterKmmqasgVZGZLYSCMS9356-96-81 10:02:00 Test Item Value Reference Range Interpretation Comments Basophils (test code = 0.6 See_Comment N [Aut omated message] The Basophils) system which ge nerated this result tra nsmitted reference range : <=1.0. The reference r leo was not used to int erpret this result as normal/abnormal . [facility] CenterVmuzrqcHUXCSUNVOT1550-96-35 10:02:00 Test Item Value Reference Range Interpretation Comments Monocytes (test code = Monocytes) 6.9 2.0-12.0 N [facility] CenterEnbnyjjUMIEPXUZSD1639-45-43 10:02:00 Test Item Value Reference Range Interpretation Comments Eosinophils (test code = 2.0 See_Comment N [A utomated message] The Eosinophils) system which ge nerated this result tra nsmitted reference range : <=4.0. The reference r leo was not used to int erpret this result as normal/abnormal . [facility] CenterThrhsfeNFPKVJHMTR8066-26-58 10:02:00 Test Item Value Reference Range Interpretation Comments Segs (test code = Segs) 55.8 45.0-75.0 N [facility] CenterSdzxxjaDMPHMBXOSV0193-78-93 10:02:00 Test Item Value Reference Range Interpretation Comments Lymphocytes (test code = Lymphocytes) 34.7 20.0-40.0 N [facility] CenterGpoalnuWQSILSGPNC1652-52-44 10:02:00 Test Item Value Reference Range Interpretation Comments PTT (test code = PTT) 32.2 s 22.9-35.8 N [facility] CenterBxwvxfoCBUPIXWLRW6012-24-75 10:02:00 Test Item Value Reference Range Interpretation Comments PT (test code = PT) 13.3 s 12.0-14.7 N [facility] CenterJdvyfeoPXHQLHMKKS6840-69-31 10:02:00 Test Item Value Reference Range Interpretation Comments INR (test code = INR) 1.01 0.85-1.17 N [facility] CenterKoueyicKSXEMNKADO1799-62-10 10:02:00 Test Item Value Reference Range Interpretation Comments Hct (test code = Hct) 27.5 36.0-48.0 L [facility] CenterVbqlkdiJCMHDJLAIB9237-63-84 10:02:00 Test Item Value Reference Range Interpretation Comments RBC (test code = RBC) 3.34 4.20-5.40 L [facility] CenterOtugvfwXEQHZYQSSS1478-96-24 10:02:00 Test Item Value Reference Range Interpretation Comments Hgb (test code = Hgb) 9.7 12.0-16.0 L [facility] CenterErtqwzrERXKVGQWAU6156-34-10 10:02:00 Test Item Value Reference Range Interpretation Comments WBC (test code = WBC) 5.0 3.7-10.4 N [facility] CenterFldzvbaQAWIPWNXKS2684-92-22 10:02:00 Test Item Value Reference Range Interpretation Comments MPV (test code = MPV) 9.2 7.4-10.4 N [facility] CenterZplozcsISYDJAHTYZ8127-79-99 10:02:00 Test Item Value Reference Range Interpretation Comments Platelet (test code = Platelet) 240 133-450 N [facility] CenterSfgrtqiXPOZTEBLPD1964-46-91 10:02:00 Test Item Value Reference Range Interpretation Comments RDW (test code = RDW) 14.3 11.5-14.5 N [facility] CenterTeujjpqXFZQGSYTRY3888-64-16 10:02:00 Test Item Value Reference Range Interpretation Comments MCHC (test code = MCHC) 35.2 32.0-36.0 N [facility] CenterQfrkqiyJQVBLMTLVF4684-61-83 10:02:00 Test Item Value Reference Range Interpretation Comments MCH (test code = MCH) 28.9 pg 27.0-31.0 N [facility] CenterDgwdcfoRVWYPSFJSR3523-63-95 10:02:00 Test Item Value Reference Range Interpretation Comments MCV (test code = MCV) 82.1 81.0-99.0 N [facility]QrpkushRFPDPRYNH7153-96-04 09:24:00 Test Item Value Reference Range Interpretation Comments Magnesium Lvl (test code = Magnesium 2.1 1.8-2.4 N Lvl) [facility] 00:32:00 Test Item Value Reference Range Interpretation Comments Culture: Aspirate/Body Fluid/Tissue (test code = Culture: Aspirate/Body Fluid/Tissue) [facility]EpncnxeIuxvsfnnulxs3224-09-58 00:32:00 Test Item Value Reference Range Interpretation Comments Culture: Anaerobic (test code = Culture: Anaerobic) [facility]IywsqaeMEACQPDAO1182-14-93 17:10:00 Test Item Value Reference Range Interpretation Comments Temp Roberth (test code = Temp Roberth) 37.0 [facility]LniiaohJLQPZVJNA0341-62-75 17:10:00 Test Item Value Reference Range Interpretation Comments O2 Sat Roberth (test code = O2 Sat Roberth) 27.0 40.0-70.0 L [facility]VvwdsugVFISDVIOM1349-40-13 17:10:00 Test Item Value Reference Range Interpretation Comments pCO2 Roberth (test code = pCO2 Roberth) 47 38-52 N [facility]MderjdsMQFLZCCDY6923-62-10 17:10:00 Test Item Value Reference Range Interpretation Comments pH Roberth (test code = pH Roberth) 7.37 7.28-7.42 N [facility]AffcgspHKDXUGYVV2720-88-78 17:10:00 Test Item Value Reference Range Interpretation Comments BE Roberth (test code = 1 See_Comment N [Automa rohit message] The BE Roberth) system which ge nerated this result transmit rohit reference range : <=2. The reference range was not used to interpr et this result as reji l/abnormal. [facility]XjhvuyjPWUJMDVDY2352-60-00 17:10:00 Test Item Value Reference Range Interpretation Comments HCO3 Roberth (test code = HCO3 Roberth) 27.2 22.0-26.0 H [place] 284602-03-13 17:10:00 Test Item Value Reference Range Interpretation Comments pO2 Roberth (test code = pO2 Roberth) 19 20-49 L [facility] HospitalIpnqnerMinixhjmqbtm5803-18-99 14:18:00 Test Item Value Reference Range Interpretation Comments Culture: Blood (test code = Culture: Blood) [facility] HospitalZmsjyejFspuggxmbieq4039-52-44 14:18:00 Test Item Value Reference Range Interpretation Comments Culture: Wound/Abscess w/Gram Stain (test code = Culture: Wound/Abscess w/Gram Stain) [facility]UfuhvahMKWMPOXDY0149-67-89 13:09:00 Test Item Value Reference Range Interpretation Comments Lactic Acid Lvl (test code = Lactic 1.0 0.5-2.2 N Acid Lvl) [facility]PjxepnpOEZDEUIWH7437-97-66 12:20:00 Test Item Value Reference Range Interpretation Comments U Preg (test code = U Negative (09/01/2011 N Preg) 07:20:00) [facility]OvtspcbPSAXHRXWTG3580-86-69 12:20:00 Test Item Value Reference Range Interpretation Comments UA Sq Epi (test code Occasional /LPF N = UA Sq Epi) (09/01/2011 07:20:00) [facility]cvwfwlKNFXQBNTZU2695-55-29 12:20:00 Test Item Value Reference Range Interpretation Comments UA Leuk Est (test Negative (09/01/2011 N code = UA Leuk Est) 07:20:00) [facility]YtxmefvNVUQWUECBP0846-43-22 12:20:00 Test Item Value Reference Range Interpretation Comments UA Nitrite (test code Negative (09/01/2011 N = UA Nitrite) 07:20:00) [facility]OscruavLCFLKXRQBZ9996-43-40 12:20:00 Test Item Value Reference Range Interpretation Comments UA Urobilinogen (test code = UA 0.2 0.1-1.0 N Urobilinogen) [facility] CenterGtbtsplMYEPNLBYHS0705-76-57 12:20:00 Test Item Value Reference Range Interpretation Comments UA Blood (test code = Negative (09/01/2011 N UA Blood) 07:20:00) [facility]VsepciaXKKTLSOZQO5251-60-01 12:20:00 Test Item Value Reference Range Interpretation Comments UA Ketones (test code = >=80 mg/dL A UA Ketones) *ABN*(09/01/2011 07:20:00) [facility]TdggcdlDNHITIUPVA8101-86-24 12:20:00 Test Item Value Reference Range Interpretation Comments UA Protein (test code Negative (09/01/2011 N = UA Protein) 07:20:00) [facility]DwxsmlvAZEOSOZMUK5474-14-79 12:20:00 Test Item Value Reference Range Interpretation Comments UA pH (test code = UA pH) 6.0 1 5.0-8.0 N [facility]anoZwirgzaWTRPUMFTUR2571-68-62 12:20:00 Test Item Value Reference Range Interpretation Comments UA Bili (test code = Negative (09/01/2011 N UA Bili) 07:20:00) [facility]hpliywFJYHMRIKKP5224-25-57 12:20:00 Test Item Value Reference Range Interpretation Comments UA Glucose (test code = >=1000 mg/dL A UA Glucose) *ABN*(09/01/2011 07:20:00) [facility]JfppdxdOCLWDVVMHV4128-09-25 12:20:00 Test Item Value Reference Range Interpretation Comments UA Spec Grav (test code = UA Spec 1.035 1 H Grav) [facility] CenterKzodhomSYPUTHXDKK8384-61-62 12:20:00 Test Item Value Reference Range Interpretation Comments UA Turbidity (test code = Clear (09/01/2011 N UA Turbidity) 07:20:00) [facility] CenterYoiloxaZXSNQPTKVI9615-37-92 12:20:00 Test Item Value Reference Range Interpretation Comments UA Color (test code = Yellow *NA*(09/01/2011 UA Color) 07:20:00) [facility]iviojYZMJHHQKF9636-23-79 08:00:00 Test Item Value Reference Range Interpretation Comments Lactic Acid Lvl (test code = Lactic 2.8 0.5-2.2 H Acid Lvl) [facility]iscoGrrpcgvTZIDDAEEU1171-87-22 07:47:00 Test Item Value Reference Range Interpretation Comments Magnesium Lvl (test code = Magnesium 1.5 1.8-2.4 L Lvl) [facility] CenterEupldxzJRTDMSQPYZ4749-01-38 07:47:00 Test Item Value Reference Range Interpretation Comments Polychrom (test code = Slight (09/01/2011 N Polychrom) 02:47:00) [facility] CenterOlfzqlzYQVKENMMPH6264-20-59 07:47:00 Test Item Value Reference Range Interpretation Comments Anisocyte (test code = 1+ *ABN*(09/01/2011 A Anisocyte) 02:47:00) [facility] CenterZxikdmeVXJWSTVSQF4608-34-61 07:47:00 Test Item Value Reference Range Interpretation Comments Large Plt (test code = Slight *ABN*(09/01/2011 A Large Plt) 02:47:00) [facility] CenterXlrefyzIBODKJOKTL0817-45-22 07:47:00 Test Item Value Reference Range Interpretation Comments Tear Cell (test code = Tear Cell) Occasional [facility] CenterByfmqpyZLKSQXBQVQ1757-84-83 07:47:00 Test Item Value Reference Range Interpretation Comments Elliptocyte (test code = Slight A Elliptocyte) *ABN*(09/01/2011 02:47:00) [facility] GLUCOSE HNSHLMK9443-37-33 17:02:00 Test Item Value Reference Range Interpretation Comments Comment1 (test code = Comment1) Notify TABATHA/ [facility] GLUCOSE DAQAOWC9857-32-30 17:02:00 Test Item Value Reference Range Interpretation Comments Gluc POC Lifscn (test code = Gluc POC 134 65-110 H Lifscn) [facility] GLUCOSE RRBIGRF4445-10-76 13:45:00 Test Item Value Reference Range Interpretation Comments Gluc POC Lifscn (test code = Gluc POC 182 65-110 H Lifscn) [facility] GLUCOSE QABSYOT5296-07-19 13:45:00 Test Item Value Reference Range Interpretation Comments Comment1 (test code = Comment1) Notifcaron MAYS/ [facility]iscoWzwudpbPVSPCDEFN6104-62-64 10:22:00 Test Item Value Reference Range Interpretation Comments Phosphorus (test code = Phosphorus) 3.0 2.5-4.5 N [facility]iscoEexbtadYKRFJTYEB6395-34-23 10:22:00 Test Item Value Reference Range Interpretation Comments Magnesium Lvl (test code = Magnesium 1.8 1.8-2.4 N Lvl) [facility]iscoIbqgzzuFUINJSYSC7964-95-17 10:22:00 Test Item Value Reference Range Interpretation Comments Chloride Lvl (test code = Chloride Lvl) 107 95-[address] [facility]SfqlvkfPGMHZTMJN9176-96-57 10:22:00 Test Item Value Reference Range Interpretation Comments Potassium Lvl (test code = Potassium 3.0 3.5-5.1 A Lvl) [facility]iscoLuwftqkOKRBEZOCX9935-96-53 10:22:00 Test Item Value Reference Range Interpretation Comments Sodium Lvl (test code = Sodium Lvl) 141 135-145 N [facility]iscoSvbvicjTODYHJVEE9245-22-07 10:22:00 Test Item Value Reference Range Interpretation Comments Creatinine Lvl (test code = Creatinine 0.6 0.5-1.4 N Lvl) [facility]IedvbwrVYQLFDUBQ4296-11-00 10:22:00 Test Item Value Reference Range Interpretation Comments CO2 (test code = CO2) 23 24-32 L [facility]iscoDtkeyzpLJHWIAJOT8391-39-37 10:22:00 Test Item Value Reference Range Interpretation Comments Calcium Lvl (test code = Calcium Lvl) 7.3 8.5-10.5 L [facility]iscoArrfdfpNIAWWSQKB3861-02-62 10:22:00 Test Item Value Reference Range Interpretation Comments Glucose Lvl (test code = Glucose Lvl) 136 [facility]iscoSidertaWWNDYPVJV2697-43-14 10:22:00 Test Item Value Reference Range Interpretation Comments AGAP (test code = AGAP) 14.0 10.0-20.0 N [facility]iscoKqysejePEUJZHGYK8629-56-96 10:22:00 Test Item Value Reference Range Interpretation Comments BUN (test code = BUN) 5 7-22 L [facility] CenterCwkcvjtPKEFYNMMSU7178-43-87 10:22:00 Test Item Value Reference Range Interpretation Comments Segs (test code = Segs) 69.6 45.0-75.0 N [facility] CenterLzdoanpTOXBWNRJTG6067-65-82 10:22:00 Test Item Value Reference Range Interpretation Comments Lymphocytes (test code = Lymphocytes) 21.5 20.0-40.0 N [facility] CenterQbrpspnXQPIGCMXXV1996-71-48 10:22:00 Test Item Value Reference Range Interpretation Comments Monocytes (test code = Monocytes) 7.6 2.0-12.0 N [facility] CenterAujthzzHURWRULZMH7574-72-05 10:22:00 Test Item Value Reference Range Interpretation Comments Eosinophils (test code = 1.0 See_Comment N [A utomated message] The Eosinophils) system which ge nerated this result tra nsmitted reference range : <=4.0. The reference r leo was not used to int erpret this result as normal/abnormal . [facility] CenterEexlvnoBBDSYATCIK4009-37-10 10:22:00 Test Item Value Reference Range Interpretation Comments Basophils (test code = 0.3 See_Comment N [Aut omated message] The Basophils) system which ge nerated this result tra nsmitted reference range : <=1.0. The reference r leo was not used to int erpret this result as normal/abnormal . [facility] CenterLrfusnkPTFGUOZRUL3362-10-80 10:22:00 Test Item Value Reference Range Interpretation Comments Segs-Bands # (test code = Segs-Bands #) 4.8 1.5-8.1 N [facility] CenterVaudwwaKPABEBKVGT0491-18-95 10:22:00 Test Item Value Reference Range Interpretation Comments Eosinophils # (test code 0.1 See_Comment N [A utomated message] The = Eosinophils #) system whic h generated this result tra nsmitted reference range : <=0.5. The reference r leo was not used to int erpret this result as normal/abnormal . [facility] CenterBsjwojqHOBSREEWGQ6598-13-18 10:22:00 Test Item Value Reference Range Interpretation Comments Lymphocytes # (test code = Lymphocytes 1.5 1.0-5.5 N #) [facility] CenterYtidsfiNLYMNYJSPX4091-51-37 10:22:00 Test Item Value Reference Range Interpretation Comments Monocytes # (test code 0.5 See_Comment N [Aut omated message] The = Monocytes #) system which generated this result tra nsmitted reference range : <=0.8. The reference r leo was not used to int erpret this result as normal/abnormal . [facility] CenterPkeebomFTWMGRJAPL3744-81-99 10:22:00 Test Item Value Reference Range Interpretation Comments Basophils # (test code 0.0 See_Comment N [Aut omated message] The = Basophils #) system which generated this result tra nsmitted reference range : <=0.2. The reference r leo was not used to int erpret this result as normal/abnormal . [facility] CenterIqlojavHAJOZLATBV2036-61-58 10:22:00 Test Item Value Reference Range Interpretation Comments MPV (test code = MPV) 11.0 7.4-10.4 H [facility] CenterGalhqxvQRWZXMNTZP7720-79-14 10:22:00 Test Item Value Reference Range Interpretation Comments Platelet (test code = Platelet) 161 133-450 N [facility] CenterGwlhptkDLFJRGHVAT1347-37-53 10:22:00 Test Item Value Reference Range Interpretation Comments MCH (test code = MCH) 29.6 pg 27.0-31.0 N [facility] CenterUvyblpfEEJMWGGHLM9038-37-04 10:22:00 Test Item Value Reference Range Interpretation Comments MCHC (test code = MCHC) 35.4 32.0-36.0 N [facility] CenterIqcgmkrJZBRVNJXFU6928-22-35 10:22:00 Test Item Value Reference Range Interpretation Comments RDW (test code = RDW) 14.1 11.5-14.5 N [facility] CenterKafbjmbELDBCXHCQM0267-59-79 10:22:00 Test Item Value Reference Range Interpretation Comments WBC (test code = WBC) 6.8 3.7-10.4 N [facility] CenterKphgoyvSAUYQLQDPW6093-25-57 10:22:00 Test Item Value Reference Range Interpretation Comments MCV (test code = MCV) 83.5 81.0-99.0 N [facility] CenterWqxhnjmUMOHLZUQWF9894-54-00 10:22:00 Test Item Value Reference Range Interpretation Comments RBC (test code = RBC) 4.44 4.20-5.40 N [facility] CenterWvqsdsrZXUCIKHFZW0360-39-69 10:22:00 Test Item Value Reference Range Interpretation Comments Hgb (test code = Hgb) 13.1 12.0-16.0 N [facility] CenterRselmueHEKFGCYYGN8003-95-12 10:22:00 Test Item Value Reference Range Interpretation Comments Hct (test code = Hct) 37.1 36.0-48.0 N [facility] GLUCOSE YGGHGKL1764-46-02 02:20:00 Test Item Value Reference Range Interpretation Comments Comment1 (test code = Comment1) Notify RN/MD [facility] GLUCOSE PQNXRKC4972-00-05 02:20:00 Test Item Value Reference Range Interpretation Comments Gluc POC Lifscn (test code = Gluc POC 332 65-110 H Lifscn) [facility]KsottfeRSPYRADKI6344-07-79 09:47:00 Test Item Value Reference Range Interpretation Comments Phosphorus (test code = Phosphorus) 2.5 2.5-4.5 N [facility]iscoOezmwkfQCRCLPQDK3977-92-07 09:47:00 Test Item Value Reference Range Interpretation Comments Glucose Lvl (test code = Glucose Lvl) 201 [facility]iscoKarjbhwWGEKQNKTQ4043-84-10 09:47:00 Test Item Value Reference Range Interpretation Comments BUN (test code = BUN) 7 7-22 N [facility]iscoCuyzpuyMFRUGQWVU3039-65-80 09:47:00 Test Item Value Reference Range Interpretation Comments CO2 (test code = CO2) 19 24-32 L [facility]iscoBnpqpgsMSIOILVNM7124-74-03 09:47:00 Test Item Value Reference Range Interpretation Comments Creatinine Lvl (test code = Creatinine 0.3 0.5-1.4 L Lvl) [facility]iscoIgbtzhaAUORKGLOB1648-74-73 09:47:00 Test Item Value Reference Range Interpretation Comments Sodium Lvl (test code = Sodium Lvl) 137 135-145 N [facility]iscoMxvislcIIDBSWAUS3074-01-45 09:47:00 Test Item Value Reference Range Interpretation Comments Chloride Lvl (test code = Chloride Lvl) 103 95-109 N [facility]iscoVeplhjbCARZMXAAD3349-32-26 09:47:00 Test Item Value Reference Range Interpretation Comments Potassium Lvl (test code = Potassium 3.6 3.5-5.1 N Lvl) [facility]iscoKytyafuVZEZINXBU5710-29-19 09:47:00 Test Item Value Reference Range Interpretation Comments Calcium Lvl (test code = Calcium Lvl) 7.9 8.5-10.5 L [facility]iscoNsdnrlrFLFGXXTUE4900-60-55 09:47:00 Test Item Value Reference Range Interpretation Comments AGAP (test code = AGAP) 18.6 10.0-20.0 N [facility]iscoBwqzyluMYPSFBEFF1806-00-52 09:47:00 Test Item Value Reference Range Interpretation Comments Magnesium Lvl (test code = Magnesium 1.6 1.8-2.4 L Lvl) [facility] CenterKpanpkbIUXJGFUFUH3110-98-94 09:47:00 Test Item Value Reference Range Interpretation Comments Basophils # (test code 0.0 See_Comment N [Aut omated message] The = Basophils #) system which generated this result tra nsmitted reference range : <=0.2. The reference r leo was not used to int erpret this result as normal/abnormal . [facility] CenterLtsbsrqJJKEAGMSCH8031-08-89 09:47:00 Test Item Value Reference Range Interpretation Comments Eosinophils (test code = 0.4 See_Comment N [A utomated message] The Eosinophils) system which ge nerated this result tra nsmitted reference range : <=4.0. The reference r leo was not used to int erpret this result as normal/abnormal . [facility] CenterMqkjyeoGKBCPVLFUP3256-76-42 09:47:00 Test Item Value Reference Range Interpretation Comments Basophils (test code = 0.5 See_Comment N [Aut omated message] The Basophils) system which ge nerated this result tra nsmitted reference range : <=1.0. The reference r leo was not used to int erpret this result as normal/abnormal . [facility] CenterAtbfalkHLLZQNBIKK4012-86-87 09:47:00 Test Item Value Reference Range Interpretation Comments Segs-Bands # (test code = Segs-Bands #) 5.9 1.5-8.1 N [facility] CenterGkqgmjzGMDUDOOVMG7298-42-36 09:47:00 Test Item Value Reference Range Interpretation Comments Lymphocytes # (test code = Lymphocytes 1.2 1.0-5.5 N #) [facility] CenterDqcwdtyMVZKPDJHTH1145-10-81 09:47:00 Test Item Value Reference Range Interpretation Comments Monocytes # (test code 0.5 See_Comment N [Aut omated message] The = Monocytes #) system which generated this result tra nsmitted reference range : <=0.8. The reference r leo was not used to int erpret this result as normal/abnormal . [facility] CenterKjoizrpGDGKZCNFXQ6420-61-61 09:47:00 Test Item Value Reference Range Interpretation Comments Eosinophils # (test code 0.0 See_Comment N [A utomated message] The = Eosinophils #) system whic h generated this result tra nsmitted reference range : <=0.5. The reference r leo was not used to int erpret this result as normal/abnormal . [facility] CenterDgodpbrNRCQERPCZX8056-20-21 09:47:00 Test Item Value Reference Range Interpretation Comments Segs (test code = Segs) 76.9 45.0-75.0 H [facility] CenterUpvgsmiNVKUURTNSF8923-29-41 09:47:00 Test Item Value Reference Range Interpretation Comments Lymphocytes (test code = Lymphocytes) 15.9 20.0-40.0 L [facility] CenterWvebfxiUSNAQPKCGB6118-17-82 09:47:00 Test Item Value Reference Range Interpretation Comments Monocytes (test code = Monocytes) 6.3 2.0-12.0 N [facility] CenterKrqyxjdTVVNAJYSHA3171-92-67 09:47:00 Test Item Value Reference Range Interpretation Comments MCV (test code = MCV) 82.8 81.0-99.0 N [facility] CenterFuunkbnLSRNUUKAHN7281-41-73 09:47:00 Test Item Value Reference Range Interpretation Comments Hct (test code = Hct) 39.7 36.0-48.0 N [facility] CenterFdrlofhNOTOTXONAU7912-54-65 09:47:00 Test Item Value Reference Range Interpretation Comments MCH (test code = MCH) 29.1 pg 27.0-31.0 N [facility] CenterMkhlkydZJEOOQYLRR4773-22-94 09:47:00 Test Item Value Reference Range Interpretation Comments Hgb (test code = Hgb) 14.0 12.0-16.0 N [facility] CenterJhboshdKSAPPOERHN8824-95-68 09:47:00 Test Item Value Reference Range Interpretation Comments MCHC (test code = MCHC) 35.2 32.0-36.0 N [facility] CenterXhyyqkuLXQACIWBKZ0171-59-05 09:47:00 Test Item Value Reference Range Interpretation Comments RDW (test code = RDW) 13.9 11.5-14.5 N [facility] CenterJekqwqkWFIVNSYMBE6880-04-02 09:47:00 Test Item Value Reference Range Interpretation Comments Platelet (test code = Platelet) 160 133-450 N [facility] CenterIalaofgDEQAXEZQVI0934-09-56 09:47:00 Test Item Value Reference Range Interpretation Comments MPV (test code = MPV) 11.9 7.4-10.4 H [facility] CenterGvukruyQSWCNQJOHV4098-20-79 09:47:00 Test Item Value Reference Range Interpretation Comments WBC (test code = WBC) 7.7 3.7-10.4 N [facility] CenterKmyqegeGOOUTLCYPZ2717-70-43 09:47:00 Test Item Value Reference Range Interpretation Comments RBC (test code = RBC) 4.80 4.20-5.40 N [facility]iscoLgyovshJXHNENDTO9713-35-94 10:28:00 Test Item Value Reference Range Interpretation Comments Phosphorus (test code = Phosphorus) 2.6 2.5-4.5 N [facility]iscoDlidelvUEUYLHYGV4690-57-78 10:28:00 Test Item Value Reference Range Interpretation Comments Magnesium Lvl (test code = Magnesium 1.8 1.8-2.4 N Lvl) [facility]iscoFlerzhvKPFCNQUEF7074-86-59 10:28:00 Test Item Value Reference Range Interpretation Comments Potassium Lvl (test code = Potassium 3.7 3.5-5.1 N Lvl) [facility]iscoMccdhqfWDFNMGQRE0083-02-44 10:28:00 Test Item Value Reference Range Interpretation Comments Sodium Lvl (test code = Sodium Lvl) 137 135-145 N [facility]iscoQjfbkrjCJCTGLACN6964-47-59 10:28:00 Test Item Value Reference Range Interpretation Comments Creatinine Lvl (test code = Creatinine 0.6 0.5-1.4 N Lvl) [facility]iscoBgyzedwTXAXVDTQD2723-22-00 10:28:00 Test Item Value Reference Range Interpretation Comments BUN (test code = BUN) 16 7-22 N [facility]iscoZczqytpEEHIFHAXS8113-31-54 10:28:00 Test Item Value Reference Range Interpretation Comments Glucose Lvl (test code = Glucose Lvl) 200 [facility]iscoCpyonzxHCOCFKRQT1723-09-43 10:28:00 Test Item Value Reference Range Interpretation Comments Calcium Lvl (test code = Calcium Lvl) 8.3 8.5-10.5 L [facility]iscoWhzwlyoGRTMEUDNE8482-77-22 10:28:00 Test Item Value Reference Range Interpretation Comments AGAP (test code = AGAP) 19.7 10.0-20.0 N [facility]iscoRxvcbgiBJPNXXPHX2705-70-72 10:28:00 Test Item Value Reference Range Interpretation Comments Chloride Lvl (test code = Chloride Lvl) 99 95-109 N [facility]iscoWcdwmwqLSACAJDQM8881-00-96 10:28:00 Test Item Value Reference Range Interpretation Comments CO2 (test code = CO2) 22 24-32 L [facility] CenterUwxdvgiSCWTEMIMHZ8427-14-85 10:28:00 Test Item Value Reference Range Interpretation Comments Platelet (test code = Platelet) 172 133-450 N [facility] CenterUmjnjzkTJSVUNEGZC4238-39-81 10:28:00 Test Item Value Reference Range Interpretation Comments MPV (test code = MPV) 12.0 7.4-10.4 H [facility] CenterObayqwwLHPEUWGOVQ3167-80-93 10:28:00 Test Item Value Reference Range Interpretation Comments WBC (test code = WBC) 7.3 3.7-10.4 N [facility] CenterBzmyyrzZUQSSKXCYV3602-34-57 10:28:00 Test Item Value Reference Range Interpretation Comments RDW (test code = RDW) 14.6 11.5-14.5 H [facility] CenterVjbsrzaCZCRASWOAD3790-04-86 10:28:00 Test Item Value Reference Range Interpretation Comments MCHC (test code = MCHC) 35.0 32.0-36.0 N [facility] CenterIhkudjqICVIFUIIIG9122-87-81 10:28:00 Test Item Value Reference Range Interpretation Comments RBC (test code = RBC) 4.54 4.20-5.40 N [facility] CenterSbuhergCUMGQLHXMF2725-05-82 10:28:00 Test Item Value Reference Range Interpretation Comments Hct (test code = Hct) 37.6 36.0-48.0 N [facility] CenterGqmygziPCEQPZSNVD8993-85-25 10:28:00 Test Item Value Reference Range Interpretation Comments MCV (test code = MCV) 82.9 81.0-99.0 N [facility] CenterGzdikzbVKACINVNSL5246-20-40 10:28:00 Test Item Value Reference Range Interpretation Comments MCH (test code = MCH) 29.0 pg 27.0-31.0 N [facility] CenterMyybwwhSVZIFNSWQD5428-53-26 10:28:00 Test Item Value Reference Range Interpretation Comments Hgb (test code = Hgb) 13.2 12.0-16.0 N [facility] CenterYnbuosqEAFQFYVBNZ5336-18-58 10:28:00 Test Item Value Reference Range Interpretation Comments Elliptocyte (test code = Slight A Elliptocyte) *ABN*(08/21/2011 04:28:00) [facility] CenterTfmkztkDSRXGGXEOO0806-12-29 10:28:00 Test Item Value Reference Range Interpretation Comments Polychrom (test code = Slight (08/21/2011 N Polychrom) 04:28:00) [facility] CenterMzckhyrYZXYVOQYBP2720-70-99 10:28:00 Test Item Value Reference Range Interpretation Comments Basophils # (test code 0.0 See_Comment N [Aut omated message] The = Basophils #) system which generated this result tra nsmitted reference range : <=0.2. The reference r leo was not used to int erpret this result as normal/abnormal . [facility] CenterApkgbgrLLEYTMKPAT8188-40-88 10:28:00 Test Item Value Reference Range Interpretation Comments Hypochrom (test code = Slight (08/21/2011 N Hypochrom) 04:28:00) [facility] CenterAwwxtvcPWLNDZFTBA0607-19-58 10:28:00 Test Item Value Reference Range Interpretation Comments Monocytes # (test code 0.6 See_Comment N [Aut omated message] The = Monocytes #) system which generated this result tra nsmitted reference range : <=0.8. The reference r leo was not used to int erpret this result as normal/abnormal . [facility] CenterUkzqdjsJFMCZGRFBV9900-14-74 10:28:00 Test Item Value Reference Range Interpretation Comments Eosinophils # (test code 0.0 See_Comment N [A utomated message] The = Eosinophils #) system whic h generated this result tra nsmitted reference range : <=0.5. The reference r leo was not used to int erpret this result as normal/abnormal . [facility] CenterUkoazfuCNZTEKRQDV6311-01-08 10:28:00 Test Item Value Reference Range Interpretation Comments Segs-Bands # (test code = Segs-Bands #) 5.3 1.5-8.1 N [facility] CenterKodspfvZSLFRPYRYV8792-01-45 10:28:00 Test Item Value Reference Range Interpretation Comments Lymphocytes # (test code = Lymphocytes 1.3 1.0-5.5 N #) [facility] CenterHouphxrWYENTXSRQN8269-74-39 10:28:00 Test Item Value Reference Range Interpretation Comments Basophils (test code = 0.5 See_Comment N [Aut omated message] The Basophils) system which ge nerated this result tra nsmitted reference range : <=1.0. The reference r leo was not used to int erpret this result as normal/abnormal . [facility] CenterSpbiemdKBVTFSMUQT0569-02-44 10:28:00 Test Item Value Reference Range Interpretation Comments Monocytes (test code = Monocytes) 8.5 2.0-12.0 N [facility] CenterXxddcjmSQPSXBAUQX7757-77-52 10:28:00 Test Item Value Reference Range Interpretation Comments Eosinophils (test code = 0.3 See_Comment N [A utomated message] The Eosinophils) system which ge nerated this result tra nsmitted reference range : <=4.0. The reference r leo was not used to int erpret this result as normal/abnormal . [facility] CenterTeiyenxGJHGMMVGSW0586-66-93 10:28:00 Test Item Value Reference Range Interpretation Comments Lymphocytes (test code = Lymphocytes) 17.3 20.0-40.0 L [facility] CenterBdunqldDEJUIXJIIZ3617-37-19 10:28:00 Test Item Value Reference Range Interpretation Comments Segs (test code = Segs) 73.4 45.0-75.0 N [facility] GLUCOSE JGZXVUA3656-17-94 07:47:00 Test Item Value Reference Range Interpretation Comments Comment2 (test code = Comment2) [facility] w[facility]VidtctkFGEDOOBMF2452-60-06 21:58:00 Test Item Value Reference Range Interpretation Comments S Preg (test code = S Negative (08/19/2011 N Preg) 15:58:00) [facility]iscoDvclpmnXUVVDEFVS6414-08-59 21:58:00 Test Item Value Reference Range Interpretation Comments Lipase Lvl (test code = Lipase Lvl) 169 73-393 N [facility]iscoJhhqnyrHLDQOMRGX9645-58-46 21:58:00 Test Item Value Reference Range Interpretation Comments ALT (test code = ALT) 54 See_Comment N [Auto mated message] The system which ge nerated this result transmit rohit reference range : <=65. The reference range was not used to interpr et this result as reji l/abnormal. [facility]iscoAflebdiNAPGTXTXO5762-09-00 21:58:00 Test Item Value Reference Range Interpretation Comments Alk Phos (test code = Alk Phos) 110 39-136 N [facility]iscoHefdcbfREJICFZVL3955-81-92 21:58:00 Test Item Value Reference Range Interpretation Comments Bili Direct (test code 0.1 See_Comment N [Aut omated message] The = Bili Direct) system which generated this result tra nsmitted reference range : <=0.3. The reference r leo was not used to int erpret this result as reji l/abnormal. [facility]iscoSxhdqicROFNIPYHD7232-02-39 21:58:00 Test Item Value Reference Range Interpretation Comments Bili Total (test code = Bili Total) 0.9 0.2-1.3 N [facility]iscoDsyzjeoGWHXKBOED7159-74-38 21:58:00 Test Item Value Reference Range Interpretation Comments Albumin Lvl (test code = Albumin Lvl) 4.4 3.5-5.0 N [facility]iscoXcxyflqBRPRZAQZG2604-45-88 21:58:00 Test Item Value Reference Range Interpretation Comments Total Protein (test code = Total 8.8 6.4-8.4 H Protein) [id number] 21:58:00 Test Item Value Reference Range Interpretation Comments Bili Indirect (test 0.8 See_Comment N [Automa rohit message] The code = Bili Indirect) system which generated this result tra nsmitted reference range : <=1.0. The reference r leo was not used to int erpret this result as normal/abnormal . [facility] SouthThdxzyuTGDSHCNPE7851-24-44 21:58:00 Test Item Value Reference Range Interpretation Comments AST (test code = AST) 36 See_Comment N [Auto mated message] The system which ge nerated this result transmit rohit reference range : <=37. The reference range was not used to interpr et this result as reji l/abnormal. [facility] SouthAvangouOHZKRUAFX3714-41-12 21:58:00 Test Item Value Reference Range Interpretation Comments Globulin (test code = Globulin) 4.4 2.0-4.0 H [facility] SouthTthoishWYATBKSIK2033-70-63 21:58:00 Test Item Value Reference Range Interpretation Comments A/G Ratio (test code = A/G Ratio) 1.0 0.7-1.6 N [facility] SouthElcgwtlYFUATNUKEL2476-89-83 21:58:00 Test Item Value Reference Range Interpretation Comments UA Bacteria (test code Occasional /HPF N = UA Bacteria) (08/19/2011 15:58:00) [facility]RwlzlvpPVXVMJQHIH5358-62-21 21:58:00 Test Item Value Reference Range Interpretation Comments UA RBC (test 3-5 /HPF See_Comment A [Automated mes pastor] code = UA RBC) *ABN*(08/19/2011 The syste m which 15:58:00) generated this result transmitted ref erence range: <=2. The reference range was not used to int erpret this result as normal/abnormal . [facility] SouthTpcsidpGBJDXPZIKZ6249-67-91 21:58:00 Test Item Value Reference Range Interpretation Comments UA WBC (test code = 3 See_Comment [Automa rohit message] The UA WBC) system which ge nerated this result transmit rohit reference range : <=5. The reference range was not used to interpr et this result as reji l/abnormal. [facility] SouthLkdpyzfLJPFKZDQAO2973-90-01 21:58:00 Test Item Value Reference Range Interpretation Comments UA Mucus (test code = Few /LPF (08/19/2011 N UA Mucus) 15:58:00) [facility]NqcruymZWWVTNJBDO7812-47-72 21:58:00 Test Item Value Reference Range Interpretation Comments UA Amorph Destiny (test Occasional /HPF A code = UA Amorph *ABN*(08/19/2011 Destiny) 15:58:00) [facility]DasqnmkCQWDOEFWGR3071-21-71 21:58:00 Test Item Value Reference Range Interpretation Comments UA Urobilinogen (test code = UA 0.2 0.1-1.0 N Urobilinogen) [facility]anoHiuweidCDJICDJRGG8148-43-58 21:58:00 Test Item Value Reference Range Interpretation Comments UA Sq Epi (test code = Rare /LPF (08/19/2011 N UA Sq Epi) 15:58:00) [facility] CenterCmdkevtDQPLVELJSP6629-27-40 21:58:00 Test Item Value Reference Range Interpretation Comments Micro? (test code = Performed (08/19/2011 N Micro?) 15:58:00) [facility]anoQqknorgHOVVQBJPZF0759-29-16 21:58:00 Test Item Value Reference Range Interpretation Comments UA Leuk Est (test Negative (08/19/2011 N code = UA Leuk Est) 15:58:00) [facility] CenterHifntnwRGDHDLHRKD1205-26-92 21:58:00 Test Item Value Reference Range Interpretation Comments UA Nitrite (test code Negative (08/19/2011 N = UA Nitrite) 15:58:00) [facility] CenterMikcojkYQYZCNGKLC3937-94-56 21:58:00 Test Item Value Reference Range Interpretation Comments UA pH (test code = UA pH) 5.5 1 5.0-8.0 N [facility] CenterBemiieiMHIZSUNZHH6531-00-89 21:58:00 Test Item Value Reference Range Interpretation Comments UA Blood (test code = Trace *ABN*(08/19/2011 A UA Blood) 15:58:00) [facility]anoZsbtclcNCXNFLYCUZ0803-20-14 21:58:00 Test Item Value Reference Range Interpretation Comments UA Bili (test code = Negative (08/19/2011 N UA Bili) 15:58:00) [facility]anoLzofrslYVGMHULVMV3646-35-13 21:58:00 Test Item Value Reference Range Interpretation Comments UA Ketones (test code = 80 mg/dL A UA Ketones) *ABN*(08/19/2011 15:58:00) [facility] CenterCjaexgtZPJDWZCEXB6566-70-09 21:58:00 Test Item Value Reference Range Interpretation Comments UA Glucose (test code = >=1000 mg/dL A UA Glucose) *ABN*(08/19/2011 15:58:00) [facility] CenterJduknhvOJQUEOCMLO3659-39-35 21:58:00 Test Item Value Reference Range Interpretation Comments UA Protein (test code Negative (08/19/2011 N = UA Protein) 15:58:00) [facility] CenterCidfppwJMDLBOSPHJ0047-17-52 21:58:00 Test Item Value Reference Range Interpretation Comments UA Turbidity (test code Slight Cloudy N = UA Turbidity) (08/19/2011 15:58:00) [facility] CenterUcdepliTNAENFBFQA2991-63-06 21:58:00 Test Item Value Reference Range Interpretation Comments UA Spec Grav (test code = UA Spec 1.025 1 Grav) [facility] CenterLvcgtchWYNRANHALX4548-51-27 21:58:00 Test Item Value Reference Range Interpretation Comments UA Color (test code = Yellow (08/19/2011 N UA Color) 15:58:00) [facility]YqnhzbrJCAQTCAAM1901-98-90 21:13:00 Test Item Value Reference Range Interpretation Comments AST (test code = AST) 23 See_Comment N [Auto mated message] The system which ge nerated this result transmit rohit reference range : <=37. The reference range was not used to interpr et this result as reji l/abnormal. [facility]CxwpnimYEMJUSJTW5392-75-45 21:13:00 Test Item Value Reference Range Interpretation Comments Bili Total (test code = Bili Total) 1.0 0.2-1.3 N [facility]SknjqqaUUKMXCTHO4303-69-83 21:13:00 Test Item Value Reference Range Interpretation Comments Alk Phos (test code = Alk Phos) 115 39-136 N [facility]iscoNmupynrAGWFOUOTL9236-27-68 21:13:00 Test Item Value Reference Range Interpretation Comments ALT (test code = ALT) 56 See_Comment N [Auto mated message] The system which ge nerated this result transmit rohit reference range : <=65. The reference range was not used to interpr et this result as reji l/abnormal. [facility]iscoOmtnnemCLDFSBLKE1710-18-35 21:13:00 Test Item Value Reference Range Interpretation Comments Total Protein (test code = Total 9.0 6.4-8.4 H Protein) [facility]iscoLfmcmabMFWULQHMK6686-34-29 21:13:00 Test Item Value Reference Range Interpretation Comments Albumin Lvl (test code = Albumin Lvl) 4.8 3.5-5.0 N [facility]iscoTyujgdwZOJJDIEBE8262-47-08 21:13:00 Test Item Value Reference Range Interpretation Comments Globulin (test code = Globulin) 4.2 2.0-4.0 H [facility]iscoPhkochzGQGAPZEKN3356-09-73 21:13:00 Test Item Value Reference Range Interpretation Comments A/G Ratio (test code = A/G Ratio) 1.1 0.7-1.6 N [facility]HbnahjbAPNVCVHFT1492-36-25 21:13:00 Test Item Value Reference Range Interpretation Comments B/C Ratio (test code = B/C Ratio) 30 6-25 H [facility] CenterYsuqvhxBSSDDSURRS7010-84-79 21:13:00 Test Item Value Reference Range Interpretation Comments RBC Morph (test code = Normal (08/19/2011 N RBC Morph) 15:13:00) [facility] CenterLwngaomQMAEPWFJXD5965-65-34 21:13:00 Test Item Value Reference Range Interpretation Comments Large Plt (test code = Slight *ABN*(08/19/2011 A Large Plt) 15:13:00) [facility] CenterDcidpyzQFNVNOZGUC1312-83-12 21:13:00 Test Item Value Reference Range Interpretation Comments Atypical Lymphs (test code = Atypical 0.0 N Lymphs) [facility] CenterOmqscyzKGAVANIQUP1128-29-50 21:13:00 Test Item Value Reference Range Interpretation Comments Bands (test code = 0.0 See_Comment N [Automat ed message] The Bands) system which ge nerated this result transmit rohit reference range : <=11.0. The reference r leo was not used to interpr et this result as reji l/abnormal. [facility]iscoUjylhpwKAPWZDGYO5068-21-76 21:10:00 Test Item Value Reference Range Interpretation Comments O2 Sat Roberth (test code = O2 Sat Roberth) 74.0 40.0-70.0 H [facility]PpfsdrwCSJAPBNGP7864-23-62 21:10:00 Test Item Value Reference Range Interpretation Comments Temp Roberth (test code = Temp Roberth) 37.0 [facility] CenterSmucwmjACXCFRDJT2416-41-58 21:10:00 Test Item Value Reference Range Interpretation Comments pO2 Roberth (test code = pO2 Roberth) 42 20-[address] [facility] HospitalPacxtkjANAXTHTTN1613-86-78 21:10:00 Test Item Value Reference Range Interpretation Comments HCO3 Roberth (test code = HCO3 Roberth) 17.3 22.0-26.0 L [facility]UjspwmiFZRWAORMQ3155-71-14 21:10:00 Test Item Value Reference Range Interpretation Comments pH Roberth (test code = pH Roberth) 7.34 7.28-7.[address] [facility] HospitalAjjyhpgFHRJHFZLK7692-10-85 21:10:00 Test Item Value Reference Range Interpretation Comments pCO2 Roberth (test code = pCO2 Roberth) 32 38-52 L [facility]WjyumnuHLKIYWFSQ3059-59-05 21:10:00 Test Item Value Reference Range Interpretation Comments BE Roberth (test code = -7 See_Comment L [Automa rohit message] The BE Roberth) system which ge nerated this result transmit rohit reference range : <=2. The reference range was not used to interpr et this result as reji l/abnormal. [facility] CenterXvpgtbmBSFPAEQMMP4149-70-66 20:34:00 Test Item Value Reference Range Interpretation Comments CDC-HIV 1/2 Ab (test Negative *NA*(08/19/2011 code = CDC-HIV 1/2 14:34:00) Ab) [facility]
[2022-06-14] MEDS ORDERED: METOCLOPRAMIDE 10 MG/2mL INJ ONE (18:30)
[2022-06-14] MEDS ORDERED: FAMOTIDINE 20 MG/2 ML VIAL IV ONE (18:32)
[2022-06-14] MEDS ORDERED: NA CHLORIDE 0.9% 1,000 ML ONE (18:32)
[2022-06-14] MEDS ORDERED: DIAZEPAM 10 MG/2 ML INJ SYRINGE ONE (18:32)
[2022-06-14 18:59] LABS: Lymphocytes % 23.5 % (15.3-44.8); MCV 89.9 fL (80-100); MPV 9.8 fL (7.6-11.3); RBC Red Blood Cell Count 2.89 M/uL (3.86-4.86)
[2022-06-14 19:17] LABS: Albumin 3.4 g/dL (3.4-5.0); Bilirubin Total 0.6 mg/dL (0.2-1.0); Protein, Total 6.7 g/dL (6.4-8.2)
[2022-06-14 19:19] LABS: Potassium 5.8 mmol/L (3.5-5.1)
[2022-06-14] MEDS ORDERED: ONDANSETRON 4 MG/2 ML VIAL ONE (19:44)
--- NOTE | 2022-06-14 19:51 | ER ---
Nurse's Notes [facility] Name: Cathi Zaldivar Age: 41 yrs Sex: Female : 1980 Arrival Date: 06/14/2022 Time: 17:53 Bed 25 [facility] MD: Jose Miguel Morin Diagnosis: Hyperkalemia;End stage renal disease;Vomiting Presentation: 06/14 18:03 Chief complaint: Abdominal pain and N/V x 3 days. Coronavirus screen: At this time, the hb client does not indicate any symptoms associated with coronavirus-19. Ebola Screen: No symptoms or risks identified at this time. Initial Sepsis Screen: Does the patient meet any 2 criteria? No. Patient's initial sepsis screen is negative. Does the patient have a suspected source of infection? No. Patient's initial sepsis screen is negative. Risk Assessment: Do you want to hurt yourself or someone else? Patient reports no desire to harm self or others. Onset of symptoms was June 11, 2022. 18:03 Method Of Arrival: Wheelchair hb 18:03 Acuity: JESSICA 3 hb Historical: - Allergies: 18:04 ambien; hb 18:04 Codeine; hb 18:04 GUAIFENESIN; hb 18:04 Lisinopril; hb 18:04 Morphine; hb 18:04 Nitrofurantoin Macrocrystal; hb 18:04 PENICILLINS; hb 18:04 Prolixin; hb 18:04 zolpidem tartrate; hb - PMHx: 19:17 "mental problems"; cardiac arrest; CHF; chronic kidney disease; cyclic vomiting em6 syndrome; Diabetes - NIDDM; Dialysis; m-w-f; ENCEPHALOPATHY; Gastroparesis; Hypertension; ibs; liver failure; PERIPHERAL NEUROPATHY; pseudo aneurysm R groin; Seizures; - PSHx: 19:17 section; dialysis catheter R chest wall; eye removed; em6 - Immunization history:: Adult Immunizations unknown. - Social history:: Smoking status: unknown. Screenin:23 [facility] ED Fall Risk Assessment (Adult) History of falling in the last 3 months, em6 including since admission No falls in past 3 months (0 pts) Confusion or Disorientation No (0 pts) Intoxicated or Sedated No (0 pts) Impaired Gait No (0 pts) Mobility Assist Device Used No (0 pt) Altered Elimination No (0 pt) Score/Fall Risk Level 0 - 2 = Low Risk Oriented to surroundings, Maintained a safe environment, Educated pt \\T\\ family on fall prevention, incl call for assistance when getting out of bed, Assessed \\T\\ reinforced patient's understanding of fall precautions, Provided non-skid footwear, Hourly rounding (assess needs \\T\\ fall precautionary measures) done, Used ambulatory aids as needed (educated on \\T\\ assisted with), Used gait belt as appropriate. Abuse screen: Denies threats or abuse. Nutritional screening: No deficits noted. Tuberculosis screening: No symptoms or risk factors identified. Assessment: 18:23 General: Appears uncomfortable, Behavior is cooperative. Pain: Complains of pain in em6 left upper quadrant Pain does not radiate. Pain currently is 10 out of 10 on a pain scale. Quality of pain is described as sharp. Neuro: Level of Consciousness is awake, alert, obeys commands, Oriented to person, place, time, situation. Cardiovascular: Patient's skin is warm and dry. Respiratory: Airway is patent Respiratory effort is even, unlabored, Respiratory pattern is regular, symmetrical. GI: Abdomen is distended, Bowel sounds present X 4 quads. Abdomen is tender to palpation in left upper quadrant. : No signs and/or symptoms were reported regarding the genitourinary system. EENT: No signs and/or symptoms were reported regarding the EENT system. Derm: No signs and/or symptoms reported regarding the dermatologic system. Musculoskeletal: Circulation, motion, and sensation intact. Capillary refill < 3 seconds, Range of motion: intact in all extremities. 19:44 Reassessment: PT LYING IN BED. STATES SHE IS NAUSEATED. ORDERED MED GIVEN. PT ELEVATED. holly TERRITORY DEVELOPMENT MANAGER AWARE. FAMILY AT BEDSIDE. NO DISTRESS NOTED. 20:21 Reassessment: PT SITTING IN CHAIR. NO DISTRESS NOTED. PT STATES SHE WANTS TO LEAVE. PT holly ENCOURAGED TO STAY SINCE SHE WAS ADMITTED. PT WITH SOUND MIND STATES SHE WOULD LIKE TO LEAVE BECAUSE SHE HAS TO TAKE HER BROTHER TO DIALYSIS. STATES SHE WILL SIGN AND AMA SHEET. OSIEL CHEATHAM INFORMED. 20:30 Reassessment: OSIEL CHEATHAM AT BEDSIDE SPEAKING TO PT. PT SIGNED AMA PAPER. holly Vital Signs: 18:03 BP 210 / 96; Pulse 79; Resp 16; Temp 97.3; Pulse Ox 100% on R/A; Weight 78 kg (R); hb Height 5 ft. 1 in. (154.94 cm); Pain 10/10; 19:18 BP 173 / 105; Pulse 78; Resp 18; Pulse Ox 100% on R/A; em6 18:03 Body Mass Index 32.49 (78.00 kg, 154.94 cm) hb ED Course: 17:53 Patient arrived in ED. mr 17:53 Jose Miguel Morin DO is Private Physician. mr 18:02 Milvia Sanders [facility]C [facility] kb 18:02 Luis Sandra MD is Attending Physician. kb 18:04 Triage completed. hb 18:05 Arm band placed on. hb 18:23 Monica Maddox, RN is Primary Nurse. em6 18:23 Placed in gown. Bed in low position. Call light in reach. Side rails up X 1. Cardiac em6 monitor on. Pulse ox on. NIBP on. Warm blanket given. 18:45 Inserted saline lock: 22 gauge ,using aseptic technique. left upper breast Blood em6 collected. 19:50 Bentley Yost MD is Hospitalizing Provider. kb 19:50 Endy Yost MD is Hospitalizing Provider. kb 20:11 SARS RAPID Sent. jj7 20:30 No provider procedures requiring assistance completed. IV discontinued, intact, jj7 bleeding controlled, No redness/swelling at site. 20:33 Delfino Akbar MD is Referral Physician. la1 Administered Medications: 18:26 Not Given (Other Intervention Used): Haloperidol 2.5 mg/50 mL 2.5 mg IVP once; Place kb patient on a ekg monitor tech 18:29 CANCELLED (Duplicate Order): Valium (diazepam) 0.5 mg IVP once kb 18:59 Drug: Reglan (metoCLOPramide) 10 mg Route: IVP; Site: Other; em6 19:18 Follow up: Response: No adverse reaction em6 18:59 Drug: Valium (diazepam) 2 mg Route: IVP; Site: Other; em6 19:18 Follow up: Response: No adverse reaction em6 19:00 Drug: NS 0.9% 1000 ml Route: IV; Rate: 1 bolus; Site: Other; em6 19:00 Drug: Pepcid (famotidine) 20 mg Route: IVP; Site: Other; em6 19:18 Follow up: Response: No adverse reaction em6 19:44 Drug: Zofran (Ondansetron) 4 mg Route: IVP; Site: Other; jj7 20:11 Drug: Bentyl (dicyclomine) 20 mg Route: PO; jj7 Outcome: 19:51 Decision to Hospitalize by Provider. kb 20:30 AMA AMA form signed jj7 20:30 Condition: improved 20:48 Patient left the ED. jj7 Signatures: Milvia Sanders, FORMING AND ASSEMBLING SUPERVISOR-C FORMING AND ASSEMBLING SUPERVISOR-Ckb Adela Reyes, Osiel, FORMING AND ASSEMBLING SUPERVISOR-C FORMING AND ASSEMBLING SUPERVISOR-Cla1 Bailee Escamilla, RN RN Monica Mullins RN RN em6 Cony Farrell RN RN jj7 Corrections: (The following items were deleted from the chart) 20:46 20:43 Reassessment: PT SITTING IN CHAIR. NO DISTRESS NOTED. PT STATES SHE WANTS TO jj7 LEAVE. PT ENCOURAGED TO STAY SINCE SHE WAS ADMITTED. PT WITH SOUND MIND STATES SHE WOULD LIKE TO LEAVE BECAUSE SHE HAS TO TAKE HER BROTHER TO DIALYSIS. STATES SHE WILL SIGN AND AMA SHEET. OSIEL TERRITORY DEVELOPMENT MANAGER INFORMED. jj7 20:48 20:34 Discharge ordered by MD. dailey jj7
--- NOTE | 2022-06-14 19:51 | EDPHYS ---
Physician Documentation [facility] Name: Cathi Zaldivar Age: 41 yrs Sex: Female : 1980 Arrival Date: 06/14/2022 Time: 17:53 Bed 25 [facility] MD: Jose Miguel Morin ED Physician Luis Sandra HPI: 06/14 18:13 This 41 yrs old Female presents to ER via Wheelchair with complaints of kb Abdominal Pain, Vomiting. 18:13 The patient presents with abdominal pain in the right upper quadrant. Onset: The kb symptoms/episode began/occurred 3 day(s) ago. The symptoms do not radiate. Associated signs and symptoms: Pertinent positives: nausea and vomiting. The symptoms are described as constant. Modifying factors: The symptoms are alleviated by nothing, the symptoms are aggravated by nothing. Severity of pain: At its worst the pain was moderate in the emergency department the pain is unchanged. The patient has experienced similar episodes in the past, chronically. The patient has not recently seen a physician. Pt reports gastroparesis exacerbation that started 3 days ago. Unable to tolerate po for 3 days. Reports pain, n/v are exactly the same as previous gastroparesis episodes. . Historical: - Allergies: 18:04 ambien; hb 18:04 Codeine; hb 18:04 GUAIFENESIN; hb 18:04 Lisinopril; hb 18:04 Morphine; hb 18:04 Nitrofurantoin Macrocrystal; hb 18:04 PENICILLINS; hb 18:04 Prolixin; hb 18:04 zolpidem tartrate; hb - PMHx: 19:17 "mental problems"; cardiac arrest; CHF; chronic kidney disease; cyclic vomiting em6 syndrome; Diabetes - NIDDM; Dialysis; m-w-f; ENCEPHALOPATHY; Gastroparesis; Hypertension; ibs; liver failure; PERIPHERAL NEUROPATHY; pseudo aneurysm R groin; Seizures; - PSHx: 19:17 section; dialysis catheter R chest wall; eye removed; em6 - Immunization history:: Adult Immunizations unknown. - Social history:: Smoking status: unknown. ROS: 18:13 Constitutional: Negative for fever, chills, and weight loss. kb 18:13 Abdomen/GI: Positive for abdominal pain, nausea and vomiting. 18:13 All other systems are negative. Exam: 18:13 Constitutional: This is a well developed, well nourished patient who is awake, alert, kb and in no acute distress. Head/Face: Normocephalic, atraumatic. ENT: Moist Mucous membranes Cardiovascular: Regular rate and rhythm with a normal S1 and S2. No gallops, murmurs, or rubs. No pulse deficits. Respiratory: Respirations even and unlabored. No increased work of breathing. Talking in full sentences Skin: Warm, dry with normal turgor. Normal color. MS/ Extremity: Pulses equal, no cyanosis. Neurovascular intact. Full, normal range of motion. Neuro: Awake and alert, GCS 15, oriented to person, place, time, and situation. Moves all extremities. Normal gait. Psych: Awake, alert, with orientation to person, place and time. Behavior, mood, and affect are within normal limits. 18:13 Abdomen/GI: Inspection: abdomen appears normal, Palpation: soft, in all quadrants, moderate abdominal tenderness, in the left upper quadrant. 19:37 ECG was reviewed by the Attending Physician. Vital Signs: 18:03 BP 210 / 96; Pulse 79; Resp 16; Temp 97.3; Pulse Ox 100% on R/A; Weight 78 kg (R); hb Height 5 ft. 1 in. (154.94 cm); Pain 10/10; 19:18 BP 173 / 105; Pulse 78; Resp 18; Pulse Ox 100% on R/A; em6 18:03 Body Mass Index 32.49 (78.00 kg, 154.94 cm) hb MDM: 18:02 Patient medically screened. 18:12 Data reviewed: vital signs, nurses notes. Data interpreted: Pulse oximetry: on room air kb is 100 %. Interpretation: normal. 19:49 Counseling: I had a detailed discussion with the patient and/or guardian regarding: the kb historical points, exam findings, and any diagnostic results supporting the discharge/admit diagnosis, lab results, radiology results, the need for further work-up and treatment in the hospital. Physician consultation: Delfino Akbar MD was contacted at 19:49, regarding consult, patient's condition. 19:50 Physician consultation: Osiel PRETTY was contacted at 19:50, regarding admission, kb to the medical/surgical unit. patient's condition, and will see patient in ED. 20:35 Refusal of service: The patient/guardian displays adequate decision making capability la1 and despite a detailed discussion of alternatives, benefits, risks, and consequences refuses: Admission to the hospital for further work-up and treatment. ED course: Patient with potassium of 5.8, ED provider discussed case with nephrology who recommends admission with dialysis in the morning. She was given Kayexalate in the emergency department, patient refused admission states she has dialysis scheduled for the morning and she also is responsible for taking a family member to dialysis and she would not be willing to stay in the hospital. She is of good decision-making capacity, she is oriented x4. She was informed of the risk of leaving AMA including risk of , cardiac arrhythmia related to hyperkalemia. Strict return precautions given. Patient verbalized understanding.. 06/14 18:05 Order name: CBC with Diff; Complete Time: 19:04 kb 06/14 18:05 Order name: CMP; Complete Time: 19:22 kb 06/14 18:05 Order name: Lipase; Complete Time: 19:22 kb 06/14 19:50 Order name: SARS RAPID la1 06/14 18:05 Order name: IV Saline Lock; Complete Time: 19:10 kb 06/14 18:05 Order name: Labs collected and sent; Complete Time: 19:10 kb 06/14 19:14 Order name: PO challenge; Complete Time: 19:19 kb 06/14 19:23 Order name: EKG; Complete Time: 19:24 kb 06/14 19:23 Order name: EKG - Nurse/Tech; Complete Time: 19:39 kb EC:37 Rate is 80 beats/min. Rhythm is regular. QRS [place] is Normal. [place] interval is normal at kb 148 msec. QRS interval is normal at 80 msec. QT interval is normal at 442 msec. Administered Medications: 18:26 Not Given (Other Intervention Used): Haloperidol 2.5 mg/50 mL 2.5 mg IVP once; Place kb patient on a cardiac nurse practitioner 18:29 CANCELLED (Duplicate Order): Valium (diazepam) 0.5 mg IVP once kb 18:59 Drug: Reglan (metoCLOPramide) 10 mg Route: IVP; Site: Other; em6 19:18 Follow up: Response: No adverse reaction em6 18:59 Drug: Valium (diazepam) 2 mg Route: IVP; Site: Other; em6 19:18 Follow up: Response: No adverse reaction em6 19:00 Drug: NS 0.9% 1000 ml Route: IV; Rate: 1 bolus; Site: Other; em6 19:00 Drug: Pepcid (famotidine) 20 mg Route: IVP; Site: Other; em6 19:18 Follow up: Response: No adverse reaction em6 19:44 Drug: Zofran (Ondansetron) 4 mg Route: IVP; Site: Other; jj7 20:11 Drug: Bentyl (dicyclomine) 20 mg Route: PO; jj7 Disposition Summary: 06/14/22 20:34 Discharge Ordered Location: Home(06/14/22 20:34) la1 Condition: Fair(06/14/22 20:34) la1 Diagnosis - Hyperkalemia(06/14/22 20:34) la1 - End stage renal disease(06/14/22 20:34) la1 - Vomiting la1 Followup: la1 - With: Delfino Akbar MD - When: Tomorrow - Reason: Discharge Instructions: - Discharge Summary Sheet la1 - Hyperkalemia la1 - Dialysis la1 - End-Stage Kidney Disease la1 Forms: - Medication Reconciliation Form la1 - Thank You Letter la1 Signatures: Dispatcher [employer] EDMilvia Gracia, JUNIOR ACCOUNTANT BOOKKEEPER-C JUNIOR ACCOUNTANT BOOKKEEPER-Ckb Osiel Barrera JUNIOR ACCOUNTANT BOOKKEEPER-C JUNIOR ACCOUNTANT BOOKKEEPER-Cla1 Bailee Escamilla RN RN Monica Maddox RN RN em6 Cony Farrell RN RN jj7 Corrections: (The following items were deleted from the chart) 18:29 18:26 Valium (diazepam) 0.5 mg IVP once ordered. kb kb 20:33 19:51 Observation kb la1 20:33 19:51 Endy Yost kb la1 20:33 19:51 Telemetry/MedSurg (observation) kb la1 20:33 19:51 Stable kb la1 20:33 19:51 an acute exacerbation kb la1 20:33 19:51 are unchanged kb la1 20:33 19:51 Standard kb la1 20:33 19:51 kb la1 20:33 19:51 Hyperkalemia kb la1 19:51 End stage renal disease [facility] 19:51 Gastroparesis kb nh1 19:51 Nausea with vomiting, unspecified [facility]
[2022-06-14] MEDS ORDERED: DICYCLOMINE HCL 10 MG CAP ONE (20:08)
[2022-06-14 20:42] LABS: SARS-CoV-2 Antigen Rapid Res Negative (Negative)
[2022-06-14 21:04] VITALS: TEMP 97.3; O2SAT 100
[2022-06-14 21:13] VITALS: BP 173/105
--- NOTE | 2022-06-15 16:05 | EKG ---
Test Date: 2022-06-14 Test Time: 19:32:53 Network Solutions Architect: MEASUREMENT RESULTS: Intervals: Rate: 80 [place]: 148 QRSD: 80 QT: 384 QTc: 442 [place]: P: 66 [place]: 148 QRS: 54 T: 69 INTERPRETIVE STATEMENTS: Normal sinus rhythm Normal ECG Compared to ECG 06/01/2022 23:13:42 Sinus tachycardia no longer present Electronically Signed On 06-15-22 16:03:58 PONY WORKER by Maximilian Mcnally
== END 2022-06-14 20:48 | disposition home or self-care (01) ==
LOC: ER 17:47
DX: E87.5 Hyperkalemia (principal); E11.22 Type 2 diabetes mellitus with diabetic chronic kidney disease; I13.2 Hypertensive heart and chronic kidney disease with heart failure and with stage 5 chronic kidney disease, or end stage renal disease; I50.9 Heart failure, unspecified; N18.6 End stage renal disease; Z99.2 Dependence on renal dialysis; Z20.822 Contact with and (suspected) exposure to COVID-19; Z88.0 Allergy status to penicillin; Z88.5 Allergy status to narcotic agent; Z88.8 Allergy status to other drugs, medicaments and biological substances
CPT/HCPCS: 93005; 85025; 36415; 83690; 80053; 87811; J2765; J3360; J7030; J2405; 96374; 96375; 99284

== ENCOUNTER 2022-06-15 15:49 | Emergency (ER) | payer MEDICARE, OTHER ==
--- OUTSIDE RECORDS SUMMARY | 2022-06-15 16:18 | XMS REPORT | Continuity of Care Document ---
:1980 Author Organization [facility] t Address [address] [place] [address] Care Team Providers Name Role Phone SHARPLESS Primary Care Physician Unavailable Nodal_J Attending Clinician Unavailable Deshazo_T Attending Clinician Unavailable RAJ WEST Attending Clinician Unavailable Jose Miguel Morin DO Attending Clinician Brooke Gallegos MD Attending Clinician [phone] Bessie Phillips Attending Clinician Forrest Cruz Attending Clinician Unavailable Melany Gilbert Attending Clinician Pat BURNS, Sivan Brand Attending Clinician Isra BURNS, Rachel Lew Attending Clinician [phone] Robe BURNS, Holden Elmore Attending Clinician Magaly BURNS, Shanda Higuera Attending Clinician Endy BURNS, Aurelio Attending Clinician Alesia Dodd Attending Clinician Joe BURNS, Mando Raphael Attending Clinician [phone] Jose Carlos BURNS, Veto Vincent Attending Clinician Pati BURNS, Juwan Attending Clinician Doc BURNS, Sofi Juárez Attending Clinician [phone] Robert MAYS, Gayle Attending Clinician Unavailable [...] MAYS, Elodia Attending Clinician Unavailable Doctor Unassigned, Deport Attending Clinician Unavailable MONA BHAT Attending Clinician Unavailable Missy Garcia RN Attending Clinician Unavailable Jimena Easton DO Attending Clinician Arun BURNS, Eze Vail Attending Clinician Laforte MD, Obed A Attending Clinician MONISHA BAJWA Attending Clinician Unavailable Monisha Bajwa Attending Clinician Alexandr Diane MD Attending Clinician OZ KIMBLE Attending Clinician Unavailable HUI WRIGHT Attending Clinician Unavailable Hui Wright Attending Clinician JOSE LUIS GONZALEZ Attending Clinician Unavailable Lamin BURNS, Oz BrandHJose F Attending Clinician Jose Luis Gonzalez MD Attending Clinician Earl Sanchez DO Attending Clinician DEJA CLEANING Attending Clinician Unavailable Deja Cleaning DPM Attending Clinician [phone] Pc, Adc Echo Room 1 - Attending Clinician Unavailable Visit, Adc Nurse Attending Clinician Unavailable 2, [facility] Attending Clinician Unavailable Mona Bhat MD [...] Unavailable Adán Horn MD Attending Clinician Aimee Ferderick Attending Clinician Unavailable Gary Manrique MD Attending [...] Arun Espitia MD, Victor J Admitting Clinician [phone] HUI WRIGHT Admitting Clinician Unavailable Hui Wright Admitting Clinician Rei Waldron Admitting Clinician Unavailable MOISE BHAKTA Admitting Clinician Unavailable Danae Cah Admitting Clinician Joe Juárez Admitting Clinician Payers Payer Name Policy Type Policy Number Effective Date Expiration Date S karla MEDICARE PART A AND [id number] 2014 2021 B 00:00:00 00:00:00 [employer] [facility] [id number] 2020 00:00:00 MEDICARE PART A \\T\\ [id number] 2014 B 00:00:00 MEDICAID OF [place] [id number] 2020 00:00:00 [employer] [facility] [id number] 2021 (MEDICARE 00:00:00 REPLACEMENT HMO) MEDICARE A B [id number] 2014 00:00:00 [place] [id number] 2016 00:00:00 Problems Condition Condition Condition Status [...] /ANEMIA D/ANEMIA 00:00: Vin Active 00 01/03/2021 [facility] NEW NEW Diagnosis Active 2020-12-24 Mem oria PATIENT GI PATIENT GI 10-14 10:39:00 l CONSULT CONSULT 00:00: Vin REFRACTORY REFRACTORY 00 GASTRO GASTRO Active 10/14/2020 [facility] Malfunctio Malfunctio Disease Active Overview : Univers n of n of 6-03 Formattin ity of arterioven arterioven 00:00: g of this [place] ous ous 00 note Medical dialysis dialysis might be Bran ch fistula, fistula, different initial initial from the encounter encounter original. Added automatic ally from request for surgery [id number] Candidiasi Candidiasi Disease Active U nivers s of vulva s of vulva 2-18 it y of and vagina [place] [facility] Branch Screening Screening Disease Active Uni vers for breast for breast 2-18 it y of cancer cancer 00:00: [place] 00 [facility] Branch NEW NEW Diagnosis Active 2018-07-26 Mem oria EVALUATION EVALUATION 07-12 09:39:00 l Active 00:00: Vin 07/12/2018 00 [facility] Pyogenic Pyogenic Disease Active 2017-06 Overview: Un lori granuloma granuloma 0-17 Formattin i ty of of of 00:00: g of this [place] conjunctiv conjunctiv 00 note Me dical a, right a, right might be Bran ch different from the original. Added automatic ally from request for surgery [id number] Right eye Right eye Disease Active Overview: Univers affected affected 9-04 Formattin ity of by by 00:00: g of this [place] proliferat proliferat 00 note Me dical montse montse might be Branch diabetic diabetic different retinopath retinopath from the y with y with original. traction traction Added retinal retinal automatic detachment detachment ally from not not request involving involving for macula, macula, surgery associated associated [id number] with type with type 1 diabetes 1 diabetes mellitus mellitus Pain Pain Disease Active Univers management management 01-18 it y of 00:00: [place] 00 Medical Branch Blind Blind Disease Active Overview: Univer s painful painful 12-16 Formattin ity o f eye eye 00:00: g of this [place] 00 note Medical might be Branch different from the original. Eviscerat ion OS on 8 - Dr. 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 Added automatic ally from request for surgery [id number] ESRD (end ESRD (end Disease Active Overview: Univers stage stage 6-12 Formattin ity of renal renal 00:00: g of this [place] disease) disease) 00 note Medica l on on might be Branch dialysis dialysis different from the original. Added automatic ally from request for surgery [id number] Diabetes Diabetes Disease Active Metho di mellitus [...] Added automatic ally from request for surgery [id number] Neovascula Neovascula Disease Active U nivers r [...] Formattin ity of 00:00: g of this [place] [address] note Medical might be Branch different from the original. Added automatic ally from request for surgery [id number] Pseudotumo Pseudotumo Disease Active U nivers r cerebri r cerebri 9-25 ity of 00:00: [place] [address] Medical Branch Liver Liver Disease Active [facility] [...] neuropathy 7-16 Pati kes 00:00: Medical 00 [place] Hyperglyce Hyperglyce Disease Active C [facility] [...] disorder disorder 7-16 [facility] 00 [place] Hypertensi Hypertensi Disease Active [facility] ve 7[facility]16 [facility] emergency emergency 00:00: Medi tawnya 00 [place] ACUTE RESP ACUTE Diagnosis Active 2016-09-09 Memoria FAILURE RESP 2- 09:11:00 l FAILURE 00:00: Vin Active 00 07/23/2016 [facility] CONGESTION CONGESTIO Diagnosis Active 2016-07-24 Margi AMD N AMD 07-23 01:49:00 l DIARRHEA DIARRHEA 00:00: Jake gonzalez Active 00 07/23/2016 [facility] Congestive Congestive Disease Active 2015-06 U T heart heart 08-11 Health failure failure 00:00: (CHF) (CHF) 00 SOB/SWELLI SOB/SWELL Diagnosis Active 2015-062016-06-10 Memoria NG ING Active 08-11 15:48:00 l 06/10/2016 00:00: Jake gonzalez [address] CHF/RENAL CHF/RENAL Diagnosis Active 2015-062016-06-24 Memoria DISEASE DISEASE 08-11 15:35:00 l Active 00:00: Vin 06/10/2016 00 [facility] Obesity Obesity Disease Active 2015-06 Univers (BMI (BMI 0-12 ity of 30-39.9) 30-39.9) 00:00: [place] [address] Medical Branch Hyperosmol Hyperosmol Disease Active 2015-06 U nivers ar ar 0-12 ity of non-ketoti non-ketoti [place] in c state in 00 Me dical patient patient Branch with 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 Hyperglyce Hyperglyce Disease Active 2015-06 U nivers maryam maryam 0-11 ity of 00:00: [place] [address] Medical Branch Diabetic Diabetic Disease Active Unive rs ulcer of ulcer of 5-07 ity of both feet both [place] 00:[place] associated associated 00 Me dical with type with type Bran ch 2 diabetes 2 diabetes mellitus mellitus SANJUANA (acute SANJUANA (acute Disease Active U nivers kidney kidney 5-07 ity of injury) injury) 00:00: [place] [address] Medical Branch Depression Depression Disease Active U nivers 5-07 ity of 00:00: [place] [address] Medical Branch Bipolar 1 Bipolar 1 Disease Active Uni vers disorder disorder 5-07 ity of 00:00: [place] [address] Medical Branch Suicidal Suicidal Disease Active Unive rs ideation ideation 5-05 ity of 00:00: [place] [address] Medical Branch Diabetes Diabetes Disease Active Unive [...] 00:00: [place] cancer in cancer in 00 [facility] tawnya female female Branch Family Family Disease [...] SEIZURES 00:00: Jake gonzalez Active 00 06/26/2013 [facility] ABD PAIN ABD PAIN Diagnosis Active 2012-062013-04-19 Memoria Active 0 21:51:00 l 04/14/2013 19:00: Jake gonzalez 00 [facility] GASTROPERI Diagnosis Active 2012-09-13 Memoria SIS GASTROPERI - 15:17:00 l SIS Active 00:00: Jake gonzalez 08/02/2012 00 [facility] ABDOMINAL ABDOMINAL Diagnosis Active 2012-03-14 Memoria PAIN PAIN 03-14 16:56:00 l Active 14:00: Vin 03/14/2012 00 [facility] NAUSEA, NAUSEA, Diagnosis Active 2012-03-14 Memoria VOMITING VOMITING 03-14 13:25:00 l Active 08:00: Vin 03/14/2012 00 [facility] N/V N/V Diagnosis Active 2011-12-08 Mem oria INABILITY INABILITY 11-27 11:14:00 l TO TO 00:00: Vin TOLERATE TOLERATE 00 PO PO Active 11/28/2011 [facility] VOMITTING VOMITTING Diagnosis Active 2011-11-28 Memoria Active 11-27 16:28:00 l 11/28/2011 00:00: Jake n [address] VOMITTING, VOMITTING Diagnosis Active 2011-09-18 Memoria HIGH BLOOD , HIGH 09-17 09:45:00 l SUGAR BLOOD 00:00: Vin SUGAR 00 Active 09/18/2011 [facility] Methicilli Methicill Problem Active 2021-01-31 Memoria n in 08-31 22:29:25 l resistant resistant 00:00: Herm naeem Staphyloco Staphyloco 00 ccus ccus aureus aureus (organism) (organism) Active 09/01/2011 Problem 01/31/2021 09/01/11 - Elbow woundProbl em added by Discern Expert. [facility] MRSA MRSA Problem Active 2012-03-16 Memor ia Active 08-31 09:11:30 l 09/01/2011 00:00: Jake n Problem 00 03/16/2012 - Elbow [id number] emily added by Discern Expert. [facility] VOMITING, VOMITING, Diagnosis Active 2011-09-01 [facility] BLOOD BLOOD 08-30 03:19:00 l SUGAR SUGAR 00:00: Vin READINGS READINGS 00 HIGH HIGH Active 08/31/2011 [facility] ELBOW ELBOW Diagnosis Active 2011-09-10 Me moria ABSCESS/HY ABSCESS/HY 08-30 16:26:00 l PERGLYCEMI PERGLYCEMI 00:00: He rmann A A Active 00 08/31/2011 [facility] Hypokalemi Hypokalem Problem Active 2012-03-16 Memoria a ia Active 08-22 09:11:30 l 08/23/2011 00:00: Jake n Problem 00 03/16/2012 [facility] DKA DKA Diagnosis Active 2011-08-24 Mem oria Active 11:27:00 l 08/19/2011 00:00: Jake gonzalez [address] VOMITING VOMITING Diagnosis Active 2011-08-19 Memoria Active 16:21:00 l 08/19/2011 00:00: Jake gonzalez [address] Final: Final: Problem 2016-08-02 Mendoza janice Acute Acute 02:46:22 l respirator respirator He rmann y failure, y failure, unspecifie unspecifie d whether d whether with with hypoxia or hypoxia or hypercapni hypercapni a a 08/02/2016 [facility] Hypoglycem Problem Inactiv 2012-03-16 Memoria ia Hypoglycem e 09:11:30 l ia Oran Inactive Problem 03/16/2012 [facility] Hypoglycem Hypoglyce Problem Inactiv 2013-04-22 Memoria ia maryam e 04:46:33 l (disorder) (disorder) He rmann Inactive Problem 04/22/2013 [facility] Gastropare Gastropar Problem Resolve 2021-01-31 Memoria sis esis d 22:29:25 l (disorder) (disorder) He rmann Resolved Problem 01/31/2021 [facility] Hypertensi Hypertens Problem Resolve 2021-01-31 Memoria ve montse d 22:29:25 l disorder, disorder, Herm naeem systemic systemic arterial arterial (disorder) (disorder) Resolved Problem 01/31/2021 [facility] Psychiatri Psychiatr Problem Resolve 2021-01-31 Memoria c ic d 22:29:25 l behavioral behavioral He rmann disability disability (finding) (finding) Resolved Problem 01/31/2021 [facility] Seizure Seizure Problem Resolve 2021-01-31 M emoria (finding) (finding) d 22:29:25 l Resolved Oran Problem 01/31/2021 [facility] Hypertensi Hypertens Problem Active 2012-03-16 Memoria on ion 09:11:30 l Active Oran Problem 03/16/2012 [facility] Hypomagnes Hypomagne Problem Active 2013-04-22 Memoria emia semia 04:46:33 l Active Vin Problem 04/22/2013 [facility] Nausea and Nausea Problem Active 2012-03-16 Memoria vomiting and 09:11:30 l vomiting Vin Active Problem 03/16/2012 [facility] ENCNTR FOR ENCNTR Diagnosis Active 2020-12-24 Memoria GENERAL FOR 10:39:00 l ADULT GENERAL Oran MEDICAL ADULT EXAM W/ MEDICAL EXAM W/ Active [facility] DMI DMI Diagnosis Active 2011-08-24 Mem oria KETOACD KETOACD 11:27:00 l UNCONTROLD UNCONTROLD He rmann Active [facility] OTHER OTHER Diagnosis Active 2011-09-10 Mem oria GENERAL GENERAL 16:26:00 l SYMPTOMS SYMPTOMS Jake n Active [facility] HEART HEART Diagnosis Active 2016-06-24 Mem oria FAILURE, FAILURE, 15:35:00 l UNSPECIFIE UNSPECIFIE He rmann D D Active [facility] ACUTE ACUTE Diagnosis Active 2016-09-09 Mem oria RESPIRATOR RESPIRATOR 09:11:00 l Y FAILURE, Y FAILURE, He rmann UNSP W UNSP W HYPOXI HYPOXI Active [facility] Nausea and Nausea Problem Resolve 2021-01-31 2021-01-31 Memoria vomiting and d 6-10 22:29:25 22:29:25 l (disorder) vomiting 00:00: Herm naeem (disorder) 00 Resolved 11/29/2011 Problem 01/31/2021 [facility] Hypokalemi Hypokalem Problem Resolve 2021-01-31 2021-01-31 Memoria a ia d 3- 22:29:25 22:29:25 l (disorder) (disorder) 00:00: He rmann Resolved 00 08/23/2011 Problem 01/31/2021 [facility] Disorder Disorder Problem Resolve 2021-01-31 2021-01-31 Memoria of of d 3- 22:29:25 22:29:25 l magnesium magnesium 00:00: Herm naeem metabolism metabolism 00 (disorder) (disorder) Resolved 08/23/2011 Problem 01/31/2021 [facility] Hyperglyce Problem Resolve 2021-01-31 2021-01-31 Memoria maryam Hyperglyce d 3- 22:29:25 22:29:25 l (disorder) maryam 00:00: Jake n (disorder) 00 Resolved 08/20/2011 Problem 01/31/2021 [facility] Ketoacidos Ketoacido Problem Resolve 2021-01-31 2021-01-31 Memoria is in sis in d 22:29:25 22:29:25 l diabetes diabetes 00:00: Jake gonzalez mellitus mellitus 00 (disorder) (disorder) Resolved 08/19/2011 Problem 01/31/2021 [facility] DKA DKA Problem Resolve 2013-04-22 2013-04-22 Memoria (diabetic (diabetic d 04:46:33 04:46:33 l ketoacidos ketoacidos 00:00: He ally thompson) es) 00 Resolved 08/19/2011 Problem 04/22/2013 [facility] History of Past Illness Condition Condition Condition Status Onset Resolution Last Treating Co mments Source Name Details Category Date Date Treatment Clinician Date Discharge Discharge Problem 2014-06-28 2014-06-28 Memoria Diagnosis: Diagnosis: 06-26 16:34:37 16:34:37 l Gastropare Gastropare 06:00: Tyrel canales sis sis 00 06/26/2014 06/28/2014 [facility] Hyperglyce Hyperglyc Problem Inactiv 2012-03-16 2012-03-16 Memoria maryam emia e 08-19 09:11:30 09:11:30 l Inactive 00:00: Vin 08/20/2011 00 Problem 03/16/2012 [facility] Allergies, Adverse Reactions, Alerts Allergy [...] e 00 Adhesive Propensi Active Swelling 2016-06 Tears [...] EH ANTOIN 01-03 MONOHYD/ 00:00: M-CRYST 00 Nitrofur Allergy Active Anaphylaxis Other [place] antoin to 01-03 reaction( Health substanc 00:00: s): liver e 00 failure, Other (see comments) , Other - See commentsL iver failure Reports transient liver disease with nitrofura ntoinRepo rts transient liver disease with nitrofura ntoinLive r failure Reports transient liver disease with nitrofura ntoinLive r failure Liver failure PENICILL Allergy Active [facility] [...] [facility]-03 [facility] Guaifene Propensi Active [...] Adhesive Active Memori a Tape Tape l [place] Ambien Ambien Active Memoria l [place] Prolex Prolex Active Memoria DM DM l Vin penicill Drug Active [facility] lisinopr Drug Active [facility] Ambien Drug Active [facility] Prolixin Drug Active [facility] penicill Drug Active [facility] lisinopr Drug Active [facility] Ambien Drug Active [facility] Prolixin Drug Active [facility] Tape Other Active [facility] penicill Drug Active [facility] lisinopr Drug Active [facility] Ambien Drug Active [facility] Prolixin Drug Active [facility] codeine Drug Active [facility] penicill Drug Active [facility] lisinopr Drug Active [facility] Ambien Drug Active [facility] Prolixin Drug Active [facility] codeine Drug Active [facility] penicill Drug Active [facility] lisinopr Drug Active [facility] Ambien Drug Active [facility] Prolixin Drug Active [facility] penicill Drug Active [facility] lisinopr Drug Active [facility] Ambien Drug Active [facility] Prolixin Drug Active [facility] penicill Drug Active [facility] lisinopr Drug Active [facility] Ambien Drug Active [facility] Prolixin Drug Active [facility] Social History Social Habit Start Date Stop Date Quantity Comments Source History of tobacco Cigarette Smoker [facility] use [facility] Exposure to Yes [facility] SARS-CoV-2 (event) Hospit al Alcohol intake 2021-06-18 2021-06-18 Ex-drinker [facility] 00:00:00 00:00:00 (finding) Hospital Tobacco use and 2021-05-14 2021-05-14 Smokeless tobacco Me thodist exposure 00:00:00 00:00:00 non-user Hospital Cigarettes smoked 2021-05-14 2021-05-14 [facility] current (pack per 00:00:00 00:00:00 Hospita l day) - Reported Cigarette 2021-05-14 2021-05-14 [facility] pack-years 00:00:00 00:00:00 Hospital Social History 2020-12-24 2020-12-24 [facility] 15:49:37 15:49:37 Tobacco Comment 2017-11-12 2017-11-12 5 cigarettes per Met hodist 00:00:00 00:00:00 day Hospital Sex Ass[birth year] At [birth year] [facility] 00:00:00 00:00:00 Hospital Smoking Status Start Date Stop Date Source Smokes tobacco daily 2021-05-14 00:00:00 [facility] Former smoker 2020-06-27 00:00:00 2020-06-27 00:00:00 [facility] Medications Ordered Filled Start Stop Current Ordering Indication Dosage Frequency Signature Comments Components Source Medication Medication Date Date Medication? Clinician (SIG) Name Name calcium Yes 1334mg Q.[id number] Take 1,334 Methodi acetate,domingo 1-18 [id number] mg by s t sphat bind, 13:02: 3D mouth 3 Hos whit (Phoslyra) 39 (three) l 667 mg (169 times a mg day. calcium)/5 mL solution cyproheptad Yes 4mg Q.[id number] Take 4 mg Methodi ine 1-18 [id number] mouth [address] (PERIACTIN) 13:02: 3D (three) Hos whit 4 mg tablet 39 times a l day as needed for allergies. buPROPion 2022-0 Yes 300mg QD Take 300 Met hodi XL 1-[address] (WELLBUTRIN 13:02: mouth Hospi ta XL) 300 MG 39 daily. l 24 hr tablet ascorbic 2022-0 Yes 500mg Q.[id number] Take 500 Methodi acid, 1-[id number] vitamin C, 13:02: 3D [...] jo-ann 39 l calcium 2021-0 Yes 667mg Q.[id number] Take 667 Methodi acetate 1-[id number] (PHOSLO) 13:02: 3D mouth [...] 39 nightly. l calcium 2021-0 Yes 1334mg Q.[id number] Take 1,334 Methodi acetate,domingo 1-18 [id number] mg by s t sphat bind, 13:02: 3D mouth 3 Hos whit (Phoslyra) 39 (three) l 667 mg (169 times a mg day. calcium)/5 mL solution cyproheptad 2021-0 Yes 4mg Q.[id number] Take 4 mg Methodi ine 1-18 [id number] by mouth [address] (PERIACTIN) 13:02: 3D (three) Hos whit 4 mg tablet 39 times a l day as needed for allergies. buPROPion 2021-0 Yes 300mg QD Take 300 Met hodi XL 1-[address] (WELLBUTRIN 13:02: mouth Hospi ta XL) 300 MG 39 daily. l 24 hr tablet ascorbic 2021-0 Yes 500mg Q.[id number] Take 500 Methodi acid, 1-[id number] vitamin C, 13:02: 3D [...] jo-ann 39 l calcium 2021-0 Yes 667mg Q.[id number] Take 667 Methodi acetate 1-[id number] (PHOSLO) 13:02: 3D mouth [...] 39 nightly. l calcium 0 Yes 1334mg Q.[id number] Take 1,334 Methodi acetate,domingo 1-18 [id number] mg by s t sphat bind, 13:02: 3D mouth 3 Hos whit (Phoslyra) 39 (three) l 667 mg (169 times a mg day. calcium)/5 mL solution cyproheptad 0 Yes 4mg Q.[id number] Take 4 mg Methodi ine -18 [id number] [address] mouth [address] (PERIACTIN) 13:02: 3D (three) Hos whit 4 mg tablet 39 times a l day as needed for allergies. buPROPion 0 Yes 300mg QD Take 300 Met hodi XL 1-[address] (WELLBUTRIN 13:02: mouth Hospi ta XL) 300 MG 39 daily. l 24 hr tablet ascorbic 2021-0 Yes 500mg Q.[id number] Take 500 Methodi acid, 1-[id number] vitamin C, 13:02: 3D [...] jo-ann 39 l calcium 2021-0 Yes 667mg Q.[id number] Take 667 Methodi acetate 1-[id number] (PHOSLO) 13:02: 3D mouth [...] l MCG tablet times a day. doxazosin 0 Yes 4mg QD Take 4 mg Met [...] 39 nightly. l calcium 2021-0 Yes 1334mg Q.[id number] Take 1,334 Methodi acetate,domingo 1-18 [id number] mg by s t sphat bind, 13:02: 3D mouth 3 Hos whit (Phoslyra) 39 (three) l 667 mg (169 times a mg day. calcium)/5 mL solution cyproheptad 2021-0 Yes 4mg Q.[id number] Take 4 mg Methodi ine 1-18 [id number] mouth [address] (PERIACTIN) 13:02: 3D (three) Hos whit 4 mg tablet 39 times a l day as needed for allergies. buPROPion 2021-0 Yes 300mg QD Take 300 Met hodi XL 1-[address] (WELLBUTRIN 13:02: mouth Hospi ta XL) 300 MG 39 daily. l 24 hr tablet ascorbic 2021-0 Yes 500mg Q.[id number] Take 500 Methodi acid, 1-[id number] vitamin C, 13:02: 3D [...] jo-ann 39 l calcium 2022-0 Yes 667mg Q.[id number] Take 667 Methodi acetate 1-[id number] (PHOSLO) 13:02: 3D mouth [...] 39 nightly. l calcium 2021-0 Yes 1334mg Q.[id number] Take 1,334 Methodi acetate,domingo 1-18 [id number] mg by s t sphat bind, 13:02: 3D mouth 3 Hos whit (Phoslyra) 39 (three) l 667 mg (169 times a mg day. calcium)/5 mL solution cyproheptad 2021-0 Yes 4mg Q.[id number] Take 4 mg Methodi ine 1-18 [id number] [address] mouth [address] (PERIACTIN) 13:02: 3D (three) Hos whit 4 mg tablet 39 times a l day as needed for allergies. buPROPion 2021-0 Yes 300mg QD Take 300 Met hodi XL 1-[address] (WELLBUTRIN 13:02: mouth Hospi ta XL) 300 MG 39 daily. l 24 hr tablet ascorbic 2021-0 Yes 500mg Q.[id number] Take 500 Methodi acid, 1-[id number] vitamin C, 13:02: 3D [...] jo-ann 39 l calcium 2022-0 Yes 667mg Q.[id number] Take 667 Methodi acetate 1-[id number] (PHOSLO) 13:02: 3D mouth [...] 39 nightly. l calcium 2021-0 Yes 1334mg Q.[id number] Take 1,334 Methodi acetate,domingo 1-18 [id number] mg by s t sphat bind, 13:02: 3D mouth 3 Hos whit (Phoslyra) 39 (three) l 667 mg (169 times a mg day. calcium)/5 mL solution cyproheptad 2021-0 Yes 4mg Q.[id number] Take 4 mg Methodi ine 1-18 [id number] [address] mouth [address] (PERIACTIN) 13:02: 3D (three) Hos whit 4 mg tablet 39 times a l day as needed for allergies. buPROPion 2021-0 Yes 300mg QD Take 300 Met hodi XL 1-[address] (WELLBUTRIN 13:02: mouth Hospi ta XL) 300 MG 39 daily. l 24 hr tablet ascorbic 2021-0 Yes 500mg Q.[id number] Take 500 Methodi acid, 1-[id number] vitamin C, 13:02: 3D [...] jo-ann 39 l calcium 2021-0 Yes 667mg Q.[id number] Take 667 Methodi acetate 1-[id number] (PHOSLO) 13:02: 3D mouth [...] 39 nightly. l calcium 2-0 Yes 1334mg Q.[id number] Take 1,334 Methodi acetate,domingo 1-18 [id number] mg by s t sphat bind, 13:02: 3D mouth 3 Hos whit (Phoslyra) 39 (three) l 667 mg (169 times a mg day. calcium)/5 mL solution cyproheptad 2021-0 Yes 4mg Q.[id number] Take 4 mg [facility] ine 1-18 [id number] [address] mouth [address] (PERIACTIN) 13:02: 3D (three) Hos whit 4 mg tablet 39 times a l day as needed for allergies. buPROPion 2021-0 Yes 300mg QD Take 300 Met hodi XL 1-[address] (WELLBUTRIN 13:02: mouth Hospi ta XL) 300 MG 39 daily. l 24 hr tablet ascorbic 2021-0 Yes 500mg Q.10648023 Take 500 [facility] acid, 1-[id number] vitamin C, 13:02: 3D [...] jo-ann 39 l calcium 2021-0 Yes 667mg Q.57213688 Take 667 [facility] acetate 1-[id number] (PHOSLO) 13:02: 3D mouth [...] 39 nightly. l calcium 2021-0 Yes 1334mg Q.79002104 Take 1,334 [facility] acetate,domingo 1-18 [id number] mg by s t sphat bind, 13:02: 3D mouth 3 Hos whit (Phoslyra) 39 (three) l 667 mg (169 times a mg day. calcium)/5 mL solution cyproheptad 2021-0 Yes 4mg Q.47870938 Take 4 mg [facility] ine 1-18 [id number] by mouth [address] (PERIACTIN) 13:02: 3D (three) Hos whit 4 mg tablet 39 times a l day as needed for allergies. buPROPion 2022-0 Yes 300mg QD Take 300 Met hodi XL 1-[address] (WELLBUTRIN 13:02: mouth Hospi ta XL) 300 MG 39 daily. l 24 hr tablet ascorbic 2022-0 Yes 500mg Q.20973999 Take 500 [facility] acid, 1-[address] vitamin C, 13:02: 3D [...] jo-ann 39 l calcium 2021-0 Yes 667mg Q.64256111 Take 667 [facility] acetate 1-[id number] (PHOSLO) 13:02: 3D mouth [...] 39 nightly. l calcium 2021-0 Yes 1334mg Q.07052553 Take 1,334 [facility] acetate,domingo 1-18 [id number] mg by s t sphat bind, 13:02: 3D mouth 3 Hos whit (Phoslyra) 39 (three) l 667 mg (169 times a mg day. calcium)/5 mL solution cyproheptad 2021-0 Yes 4mg Q.93748380 Take 4 mg [facility] ine 1-18 [id number] by mouth [address] (PERIACTIN) 13:02: 3D (three) Hos whit 4 mg tablet 39 times a l day as needed for allergies. buPROPion 2021-0 Yes 300mg QD Take 300 Met hodi XL 1-[address] (WELLBUTRIN 13:02: mouth Hospi ta XL) 300 MG 39 daily. l 24 hr tablet ascorbic 2021-0 Yes 500mg Q.24407156 Take 500 [facility] acid, 1-[address] vitamin C, 13:02: 3D [...] jo-ann 39 l calcium 2021-0 Yes 667mg Q.87627512 Take 667 [facility] acetate 1-[id number] (PHOSLO) 13:02: 3D mouth [...] 39 nightly. l calcium 2021-0 Yes 1334mg Q.64578994 Take 1,334 [facility] acetate,domingo 1-18 [id number] mg by s t sphat bind, 13:02: 3D mouth 3 Hos whit (Phoslyra) 39 (three) l 667 mg (169 times a mg day. calcium)/5 mL solution cyproheptad 2021-0 Yes 4mg Q.01346471 Take 4 mg [facility] ine 1-18 [id number] [address] mouth [address] (PERIACTIN) 13:02: 3D (three) Hos whit 4 mg tablet 39 times a l day as needed for allergies. buPROPion 2021-0 Yes 300mg QD Take 300 Met hodi XL 1-[address] (WELLBUTRIN 13:02: mouth Hospi ta XL) 300 MG 39 daily. l 24 hr tablet ascorbic 2-0 Yes 500mg Q.69015265 Take 500 [facility] acid, 1-[address] vitamin C, 13:02: 3D [...] 13:02: daily. Hosp jo-ann 39 l calcium 202-0 Yes 667mg Q.71302751 Take 667 [facility] acetate 1-[id number] (PHOSLO) 13:02: 3D mouth [...] 39 nightly. l calcium 2021-0 Yes 1334mg Q.02261281 Take 1,334 [facility] acetate,domingo 1-18 [id number] mg by s t sphat bind, 13:02: 3D mouth 3 Hos whit (Phoslyra) 39 (three) l 667 mg (169 times a mg day. calcium)/5 mL solution cyproheptad 2021-0 Yes 4mg Q.86087491 Take 4 mg [facility] ine 1-18 [id number] [address] mouth [address] (PERIACTIN) 13:02: 3D (three) Hos whit 4 mg tablet 39 times a l day as needed for allergies. buPROPion 2021-0 Yes 300mg QD Take 300 Met hodi XL 1-[address] (WELLBUTRIN 13:02: mouth Hospi ta XL) 300 MG 39 daily. l 24 hr tablet ascorbic 2021-0 Yes 500mg Q.99727665 Take 500 [facility] acid, 1-[id number] vitamin C, 13:02: 3D [...] jo-ann 39 l calcium 2-0 Yes 667mg Q.36763187 Take 667 [facility] acetate 1-[address] (PHOSLO) 13:02: 3D mouth [...] 39 nightly. l calcium 2021-0 Yes 1334mg Q.01531228 Take 1,334 [facility] acetate,domingo 1-18 [id number] mg by s t sphat bind, 13:02: 3D mouth 3 Hos whit (Phoslyra) 39 (three) l 667 mg (169 times a mg day. calcium)/5 mL solution cyproheptad 2021-0 Yes 4mg Q.58068773 Take 4 mg [facility] ine 1-18 [id number] [address] mouth [address] (PERIACTIN) 13:02: 3D (three) Hos whit 4 mg tablet 39 times a l day as needed for allergies. buPROPion 2021-0 Yes 300mg QD Take 300 Met hodi XL 1-[address] (WELLBUTRIN 13:02: mouth Hospi ta XL) 300 MG 39 daily. l 24 hr tablet ascorbic 2021-0 Yes 500mg Q.97279931 Take 500 [facility] acid, 1-[id number] vitamin C, 13:02: 3D [...] jo-ann 39 l calcium 2021-0 Yes 667mg Q.37934836 Take 667 [facility] acetate 1-[id number] (PHOSLO) 13:02: 3D mouth [...] mouth Hospita tablet 39 nightly. l glipiZIDE 2022-0 Yes 5mg Take 5 mg Met hodi (GLUCOTROL) 1-[address] 5 MG tablet 13:02: daily. Hosp jo-ann 39 l calcium 2021-0 Yes 667mg Q.90153188 Take 667 [facility] acetate 1-[id number] (PHOSLO) 13:02: 3D mouth [...] 39 (two) l times a day. pravastatin 2022-0 Yes 40mg QD Take 40 mg Methodi [...] 39 nightly. l calcium 0 Yes 1334mg Q.19888110 Take 1,334 [facility] acetate,domingo 1-18 [id number] mg by s t sphat bind, 13:02: 3D mouth 3 Hos whit (Phoslyra) 39 (three) l 667 mg (169 times a mg day. calcium)/5 mL solution cyproheptad Yes 4mg Q.63749052 Take 4 mg [facility] ine 1-18 [id number] [address] mouth [address] (PERIACTIN) 13:02: 3D (three) Hos whit 4 mg tablet 39 times a l day as needed for allergies. buPROPion Yes 300mg QD Take 300 Met hodi XL 1-[address] (WELLBUTRIN 13:02: mouth Hospi ta XL) 300 MG 39 daily. l 24 hr tablet ascorbic 0 Yes 500mg Q.24440976 Take 500 [facility] acid, 1-[id number] vitamin C, 13:02: 3D mouth 3 Hosp jo-ann (ascorbic 39 (three) l acid with times a sia hips) day. 500 MG tablet clonAZEPAM Yes .5mg Take 0.5 Met hodi (KlonoPIN) 1-[address] 0.5 MG 13:02: mouth as Hospita tablet 39 needed for l anxiety. apixaban 2020-06- No 10mg Q.5D Take 10 mg Me thodi (ELIQUIS) 5 2-29 12-29 by mouth 2 s t mg [...] mg at night vancomycin 2020-06- No 750mg Q.50395326 Infuse 750 [facility] 750 mg in 07-08 [id number] [address] sodium 00:00: 05:59 3W venous Hospita chloride 00 :00 catheter 3 l 0.9% 250 mL (three) IVPB times a week for 19 days. Administer 3 times weekly in dialysis vancomycin 2020-06- No 750mg Q.32464086 Infuse 750 [facility] 750 mg in 07-08 [id number] mg into a [address] sodium 00:00: 05:59 3W venous Hospita chloride 00 :00 catheter 3 l 0.9% 250 mL (three) IVPB times a week for 19 days. Administer 3 times weekly in dialysis vancomycin 2020-06- No 750mg Q.85294689 Infuse 750 [facility] 750 mg in 07-08 [id number] mg into a [address] sodium 00:00: 05:59 3W venous Hospita chloride 00 :00 catheter 3 l 0.9% 250 mL (three) IVPB times a week for 19 days. Administer 3 times weekly in dialysis vancomycin 2020-06- No 750mg Q.31534211 Infuse 750 [facility] 750 mg in 07-08 [id number] mg into a [address] sodium 00:00: 05:59 3W venous [facility]ospita chloride 00 :00 catheter 3 l 0.9% 250 mL (three) IVPB times a week for 19 days. Administer 3 times weekly in dialysis vancomycin 2020-06- No 750mg Q.80596396 Infuse 750 [facility] 750 mg in 07-08 [id number] mg into a [address] sodium 00:00: 05:59 3W venous [facility]ospita chloride 00 :00 catheter 3 l 0.9% 250 mL (three) IVPB times a week for 19 days. Administer 3 times weekly in dialysis vancomycin 2020-06- No 750mg Q.81653551 Infuse 750 [facility] 750 mg in 07-08 [id number] mg into a [facility] sodium 00:00: 05:59 3W venous [facility]ospita chloride 00 :00 catheter 3 l 0.9% 250 mL (three) IVPB times a week for 19 days. Administer 3 times weekly in dialysis vancomycin 2020-06- No 750mg Q.37277183 Infuse 750 [facility] 750 mg in 07-08 [id number] mg into a [facility] sodium 00:00: 05:59 3W venous [facility]ospita chloride 00 :00 catheter 3 l 0.9% 250 mL (three) IVPB times a week for 19 days. Administer 3 times weekly in dialysis vancomycin 2020-06- No 750mg Q.74770393 Infuse 750 [facility] 750 mg in 07-08 [id number] mg into a [facility] sodium 00:00: 05:59 3W venous [facility]ospita chloride 00 :00 catheter 3 l 0.9% 250 mL (three) IVPB times a week for 19 days. Administer 3 times weekly in dialysis vancomycin 2020-06- No 750mg Q.09648669 Infuse 750 [facility] 750 mg in 07-08 [id number] mg into a [address] sodium 00:00: 05:59 3W venous [facility]ospita chloride 00 :00 catheter 3 l 0.9% 250 mL (three) IVPB times a week for 19 days. Administer 3 times weekly in dialysis vancomycin 2020-06- No 750mg Q.33710904 Infuse 750 [facility] 750 mg in 07-08 [id number] mg into a [address] sodium 00:00: 05:59 3W venous [facility]ospita chloride 00 :00 catheter 3 l 0.9% 250 mL (three) IVPB times a week for 19 days. Administer 3 times weekly in dialysis vancomycin 2020-06- No 750mg Q.19743878 Infuse 750 [facility] 750 mg in 07-08 [id number] mg into a [address] sodium 00:00: 05:59 3W venous [facility]ospita chloride 00 :00 catheter 3 l 0.9% 250 mL (three) IVPB times a week for 19 days. Administer 3 times weekly in dialysis vancomycin 2020-06- No 750mg Q.84179536 Infuse 750 [facility] 750 mg in 07-08 [id number] mg into a [address] sodium 00:00: 05:59 3W venous [facility]ospita chloride 00 :00 catheter 3 l 0.9% 250 mL (three) IVPB times a week for 19 days. Administer 3 times weekly in dialysis vancomycin 2020-06- No 750mg Q.54132765 Infuse 750 [facility] 750 mg in 07-08 [id number] mg into a [address] sodium 00:00: 05:59 3W venous [facility]ospita chloride 00 :00 catheter 3 l 0.9% 250 mL (three) IVPB times a week for 19 days. Administer 3 times weekly in dialysis HYDROcodone 2020-06- No [id number] 1{tbl} Q6H Take 1 [facility] -acetaminop 06-[address] [facility] ([facility]em[facility]) 00:00: 05:59 mouth Hosp jo-ann 5-325 mg 00 :00 every 6 l per tablet (six) hours as needed for severe pain for up to 5 days .acute pain. Max Daily Amount: 4 tablets HYDROcodone 2020-06 1{tbl} Q6H Take 1 [facility] -acetaminop 2-29 -[address] [facility] ([facility]) 00:00: 05:59 mouth Hosp jo-ann 5-325 mg 00 :00 every 6 l per tablet (six) hours as needed for severe pain for up to 5 days .acute pain. Max Daily Amount: 4 tablets HYDROcodone 2020-06 1{tbl} Q6H Take 1 [facility] -acetaminop 2-29 -[address] [facility] ([facility]) 00:00: 05:59 mouth Hosp jo-ann 5-325 mg 00 :00 every 6 l per tablet (six) hours as needed for severe pain for up to 5 days .acute pain. Max Daily Amount: 4 tablets HYDROcodone 2020-06 1{tbl} Q6H Take 1 [facility] -acetaminop 2-29 -[address] hen ([facility]) 00:00: 05:59 mouth Hosp jo-ann 5-325 mg 00 :00 every 6 l per tablet (six) hours as needed for severe pain for up to 5 days .acute pain. Max Daily Amount: 4 tablets HYDROcodone 2020-06 1{tbl} Q6H Take 1 [facility] -acetaminop 2-29 -[address] [facility] ([facility]) 00:00: 05:59 mouth Hosp jo-ann 5-325 mg 00 :00 every 6 l per tablet (six) hours as needed for severe pain for up to 5 days .acute pain. Max Daily Amount: 4 tablets HYDROcodone 2020-06 1{tbl} Q6H Take 1 [facility] -acetaminop 2-29 -[address] hen ([facility]) 00:00: 05:59 mouth Hosp jo-ann 5-325 mg 00 :00 every 6 l per tablet (six) hours as needed for severe pain for up to 5 days .acute pain. Max Daily Amount: 4 tablets HYDROcodone 2020-06 1{tbl} Q6H Take 1 [facility] -acetaminop 2-29 -[address] hen ([facility]) 00:00: 05:59 mouth Hosp jo-ann 5-325 mg 00 :00 every 6 l per tablet (six) hours as needed for severe pain for up to 5 days .acute pain. Max Daily Amount: 4 tablets HYDROcodone 2020-06 1{tbl} Q6H Take 1 [facility] -acetaminop 2-29 -[address] hen ([facility]) 00:00: 05:59 mouth Hosp jo-ann 5-325 mg 00 :00 every 6 l per tablet (six) hours as needed for severe pain for up to 5 days .acute pain. Max Daily Amount: 4 tablets HYDROcodone 2020-06 1{tbl} Q6H Take 1 [facility] -acetaminop 2-29 -[address] [facility] ([facility]) 00:00: 05:59 mouth Hosp jo-ann 5-325 mg 00 :00 every 6 l per tablet (six) hours as needed for severe pain for up to 5 days .acute pain. Max Daily Amount: 4 tablets HYDROcodone 2020-06 1{tbl} Q6H Take 1 [facility] -acetaminop 2-29 -[address] [facility] ([facility]) 00:00: 05:59 mouth [facility]osp jo-ann 5-325 mg 00 :00 every 6 l per tablet (six) hours as needed for severe pain for up to 5 days .acute pain. Max Daily Amount: 4 tablets HYDROcodone 2020-06 1{tbl} Q6H Take 1 [facility] -acetaminop 2-29 -[address] hen ([facility]) 00:00: 05:59 mouth [facility]osp jo-ann 5-325 mg 00 :00 every 6 l per tablet (six) hours as needed for severe pain for up to 5 days .acute pain. Max Daily Amount: 4 tablets HYDROcodone 2020-06 1{tbl} Q6H Take 1 [facility] -acetaminop 2-29 -[address] hen ([facility]) 00:00: 05:59 mouth [facility]osp jo-ann 5-325 mg 00 :00 every 6 l per tablet (six) hours as needed for severe pain for up to 5 days .acute pain. Max Daily Amount: 4 tablets HYDROcodone 2020-06 No [id number] 1{tbl} Q6H Take 1 [facility] -acetaminop -[address] hen (NORCO) 00:00: [...] 2-05 12-13 tablets by s t hen (Hemosphere) 00:00: 05:59 mouth Hosp jo-ann 5-325 mg 00 :00 every 8 l per tablet (eight) hours as needed for severe pain for up to 7 days .acute pain. Max Daily Amount: 6 tablets HYDROcodone 2020-06 2{tbl} Q8H Take 2 [facility] -acetaminop 2-05 12-13 tablets by s t hen (Hemosphere) 00:00: 05:59 mouth Hosp jo-ann 5-325 mg 00 :00 every 8 l per tablet (eight) hours as needed for severe pain for up to 7 days .acute pain. Max Daily Amount: 6 tablets HYDROcodone 2020-0628 2{tbl} Q8H Take 2 [facility] -acetaminop 2-05 12-13 tablets by s t hen (Hemosphere) 00:00: 05:59 mouth Hosp jo-ann 5-325 mg 00 :00 every 8 l per tablet (eight) hours as needed for severe pain for up to 7 days .acute pain. Max Daily Amount: 6 tablets HYDROcodone 2020-0628 2{tbl} Q8H Take 2 [facility] -acetaminop 2-05 12-13 tablets by s t hen (Hemosphere) 00:00: 05:59 mouth Hosp jo-ann 5-325 mg 00 :00 every 8 l per tablet (eight) hours as needed for severe pain for up to 7 days .acute pain. Max Daily Amount: 6 tablets HYDROcodone 2020-06 2{tbl} Q8H Take 2 [facility] -acetaminop 2-05 12-13 tablets by s t hen ([facility]em[facility]) 00:00: 05:59 mouth Hosp jo-ann 5-325 mg 00 :00 every 8 l per tablet (eight) hours as needed for severe pain for up to 7 days .acute pain. Max Daily Amount: 6 tablets HYDROcodone 2020-06 2{tbl} Q8H Take 2 [facility] -acetaminop 2-05 12-13 tablets by s t hen ([facility]em[facility]) 00:00: 05:59 mouth Hosp jo-ann 5-325 mg 00 :00 every 8 l per tablet (eight) hours as needed for severe pain for up to 7 days .acute pain. Max Daily Amount: 6 tablets HYDROcodone 2020-06 2{tbl} Q8H Take 2 [facility] -acetaminop 2-05 12-13 tablets by s t hen ([facility]em[facility]) 00:00: 05:59 mouth Hosp jo-ann 5-325 mg 00 :00 every 8 l per tablet (eight) hours as needed for severe pain for up to 7 days .acute pain. Max Daily Amount: 6 tablets HYDROcodone 2020-06 2{tbl} Q8H Take 2 Method[facility] -acetaminop 2-05 12-13 tablets by s t hen (Hem[facility]) 00:00: 05:59 mouth [facility]osp jo-ann 5-325 mg 00 :00 every 8 l per tablet (eight) hours as needed for severe pain for up to 7 days .acute pain. Max Daily Amount: 6 tablets HYDROcodone 2020-06 2{tbl} Q8H Take 2 [facility] -acetaminop 2-05 12-13 tablets by s t hen ([facility]) 00:00: 05:59 mouth Hosp jo-ann 5-325 mg 00 :00 every 8 l per tablet (eight) hours as needed for severe pain for up to 7 days .acute pain. Max Daily Amount: 6 tablets HYDROcodone 2020-06 2{tbl} Q8H Take 2 [facility] -acetaminop 2-05 12-13 tablets by s t hen ([facility]) 00:00: 05:59 mouth Hosp jo-ann 5-325 mg 00 :00 every 8 l per tablet (eight) hours as needed for severe pain for up to 7 days .acute pain. Max Daily Amount: 6 tablets [place]Ocodone 2020-[place]- [place] [id number] 2{tbl} Q8H Take 2 [facility] -acetaminop 2-05 12-13 tablets by s t hen (NORCO) 00:00: 05:59 mouth Hosp jo-ann 5-325 mg 00 :00 every 8 l per tablet (eight) hours as needed for severe pain for up to 7 days .acute pain. Max Daily Amount: 6 tablets predniSONE 2020-06- No [id number] Take M ethodi (DELTASONE) 07-18 12-05 Prednisone s t 50 mg 00:00: 00:00 50mg 13 Hospita tablet 00 :00 hours, 7 l hours, and 1 hour prior to scheduled procedure on 05/19/2021 for contrast allergy prophylaxi s. predniSONE 2020-06- No [id number] Take M ethodi (DELTASONE) 07-18 12-05 Prednisone s t 50 mg 00:00: 00:00 50mg 13 Hospita tablet 00 :00 hours, 7 l hours, and 1 hour prior to scheduled procedure on 05/19/2021 for contrast allergy prophylaxi s. predniSONE 2020-06- No [id number] Take M ethodi (DELTASONE) 07-18 12-05 Prednisone s t 50 mg 00:00: 00:00 50mg 13 Hospita tablet 00 :00 hours, 7 l hours, and 1 hour prior to scheduled procedure on 05/19/2021 for contrast allergy prophylaxi s. predniSONE 2020-06- No [id number] Take M ethodi (DELTASONE) 07-18 12-05 Prednisone s t 50 mg 00:00: 00:00 50mg 13 Hospita tablet 00 :00 hours, 7 l hours, and 1 hour prior to scheduled procedure on 05/19/2021 for contrast allergy prophylaxi s. predniSONE 2020-06- No [id number] Take M ethodi (DELTASONE) 07-18 12-05 Prednisone s t 50 mg 00:00: 00:00 50mg 13 Hospita tablet 00 :00 hours, 7 l hours, and 1 hour prior to scheduled procedure on 05/19/2021 for contrast allergy prophylaxi s. predniSONE 2020-06- No [id number] Take M ethodi (DELTASONE) 07-18 12-05 Prednisone s t 50 mg 00:00: 00:00 50mg 13 Hospita tablet 00 :00 hours, 7 l hours, and 1 hour prior to scheduled procedure on 05/19/2021 for contrast allergy prophylaxi s. predniSONE 2020-06- No [id number] Take M ethodi (DELTASONE) 07-18 12-05 Prednisone s t 50 mg 00:00: 00:00 50mg 13 Hospita tablet 00 :00 hours, 7 l hours, and 1 hour prior to scheduled procedure on 05/19/2021 for contrast allergy prophylaxi s. predniSONE 2020-06- No [id number] Take M ethodi (DELTASONE) 07-18 12-05 Prednisone s t 50 mg 00:00: 00:00 50mg 13 Hospita tablet 00 :00 hours, 7 l hours, and 1 hour prior to scheduled procedure on 05/19/2021 for contrast allergy prophylaxi s. predniSONE 2020-06- No [id number] Take M ethodi (DELTASONE) 07-18 12-05 Prednisone s t 50 mg 00:00: 00:00 50mg 13 Hospita tablet 00 :00 hours, 7 l hours, and 1 hour prior to scheduled procedure on 05/19/2021 for contrast allergy prophylaxi s. predniSONE 2020-06- No [id number] Take M ethodi (DELTASONE) 07-18 12-05 Prednisone [...] 5mg QD Take 5 mg [facility] (TRADJENTA) -24 11-[address] 5 mg tablet 15:20: 00:00 daily. Hos whit 30 :00 l linaGLIPtin 2020-06- No 5mg QD Take 5 mg [facility] (TRADJENTA) -24 11-[address] 5 mg tablet 15:20: 00:00 daily. Hos whit 30 :00 l linaGLIPtin 2020-06- No 5mg QD Take 5 mg [facility] (TRADJENTA) -24 11-[address] 5 mg tablet 15:20: 00:00 daily. Hos whit 30 :00 l linaGLIPtin 2020-06- No 5mg QD Take 5 mg [facility] (TRADJENTA) -24 11-[address] 5 mg tablet [...] by mouth ity of (PROTONIX) 11:08: daily. [place] 20 mg EC Medical tablet Branch Cholecalcif 2020-06 Yes 5000U Take 5,000 [facility] mansi, 0-03 Units by ity of Vitamin D3, 11:08: mouth. [place] 125 mcg [facility] (5,000 Branch unit) tablet proMETHazin 2020-06 Yes 25mg Take 25 mg Univers e 25 mg 0-03 by mouth. ity of tablet 11:08: [place] [facility] aspirin 81 2020-06 Yes 81mg Take 1 Unive rs mg chewable 0-03 tablet by ity of tablet 11:08: mouth [place] 01 daily. Medical Branch divalproex 2020-06 Yes [...] by ity of hips 23:08: mouth 2 [place] (VITAMIN C) 36 (two) Medical 1,000 mg times Branch tablet daily. metoprolol 2020-06 Yes 50mg Take 50 mg U nivers tartrate 50 0-01 by mouth ity of mg tablet 23:08: daily. [address] Branch folic 2020-06 Yes 800mg Take 800 Univers acid/vit B 0-01 mg by ity of complex and 23:08: mouth [place] C 36 daily. Medical (DIALYVITE Branch 800 ORAL) linagliptin 2020-06 Yes Take by Uni vers (TRADJENTA) 0-01 mouth. ity of 5 mg tablet 23:08: [address] Branch spironolact 2020-06 Yes 50mg Take 50 mg Univers one 50 mg 0-01 by mouth ity of tablet 23:08: daily. [address] Branch pravastatin 2020-06 Yes 40mg Take 40 mg Univers 40 mg 0-01 by mouth ity of tablet 23:08: daily. [address] Branch mv-mn/iron/ 2020-06 Yes 1{capsu Take 1 U nivers folic 0-01 le} capsule by ity of acid/herb 23:08: mouth [place] 190 36 daily. Medical (VITAMIN D3 Branch COMPLETE ORAL) SERTraline 2020-06 Yes 50mg Take 50 mg U nivers 50 mg 0-01 by mouth ity of tablet 23:08: daily. [address] Branch calcium 2020-06 Yes 667mg Take 667 Unive rs acetate 667 0-01 mg by ity of mg capsule 23:08: mouth 3 [place] 36 (three) Medical times Branch daily with meals. cetirizine 2020-06 Yes 1{tbl} Take 1 Uni vers HCl/pseudoe 0-01 tablet by ity of phedrine 23:08: mouth [place] (ZYRTEC-D 36 daily. Medical ORAL) Branch furosemide 2020-06 Yes 40mg Take 40 mg U nivers 40 mg 0-01 by mouth 2 ity of tablet 23:08: (two) [place] [address] times Medical daily. Branch divalproex 2020-06 Yes 500mg Take 500 Un lori ER 0-01 mg by ity of (DEPAKOTE 23:08: mouth 2 [place] ER) 500 mg 36 (two) Medical 24 hr times Branch tablet daily. gabapentin 2020-06 Yes 100mg Take 100 Un lori 100 mg 0-01 mg by ity of capsule 23:08: mouth 2 [place] [address] (two) Medical times Branch daily. vitamin C 2020-06 Yes 2000mg Take 2,000 Univers with sia 0-01 mg by ity of hips 23:08: mouth 2 [place] (VITAMIN C) 36 (two) Medical 1,000 mg times Branch tablet daily. metoprolol 2020-06 Yes 50mg Take 50 mg U nivers tartrate 50 0-01 by mouth ity of mg tablet 23:08: daily. [address] Branch folic 2020-06 Yes 800mg Take 800 Univers acid/vit B 0-01 mg by ity of complex and 23:08: mouth [place] C 36 daily. Medical (DIALYVITE Branch 800 ORAL) linagliptin 2020-06 Yes Take by Uni vers (TRADJENTA) 0-01 mouth. ity of 5 mg tablet 23:08: [address] Branch spironolact 2020-06 Yes 50mg Take 50 mg Univers one 50 mg 0-01 by mouth ity of tablet 23:08: daily. [address] Branch pravastatin 2020-06 Yes 40mg Take 40 mg Univers 40 mg 0-01 by mouth ity of tablet 23:08: daily. [address] Branch mv-mn/iron/ 2020-06 Yes 1{capsu Take 1 U nivers folic 0-01 le} capsule by ity of acid/herb 23:08: mouth [place] 190 36 daily. Medical (VITAMIN D3 Branch COMPLETE ORAL) SERTraline 2020-06 Yes 50mg Take 50 mg U nivers 50 mg 0-01 by mouth ity of tablet 23:08: daily. [place] 36 Medical Branch calcium 2020-06 Yes 667mg Take 667 Unive rs acetate 667 0-01 mg by ity of mg capsule 23:08: mouth 3 [place] (three) Medical times Branch daily with meals. cetirizine 2020-06 Yes 1{tbl} Take 1 Uni vers HCl/pseudoe 0-01 tablet by ity of phedrine 23:08: mouth [place] (ZYRTEC-D 36 daily. Medical ORAL) Branch furosemide 2020-06 Yes 40mg Take 40 mg U nivers 40 mg 0-01 by mouth 2 ity of tablet 23:08: (two) [place] 36 times Medical daily. Branch BUPROPION 2020-06 300mg Take 300 Un lori HCL ORAL 0-01 10-01 mg by ity of 16:33: 00:00 mouth [place] 14 :00 every Medical morning. Branch Wellbutrin XL tramadol No Notes: Not Mem oria hydrochlori 01-29 to exceed l de 50 MG 11:14: 400mg/day. Her braden Oral Tablet 00 (Same As: Ultram) Simethicone No Notes: [place] janice 8-11 (Same as: l 01:36: Mylicon) [place] 00 epoetin Yes 2,000 unit [place] janice giovanny-epbx 10 = 1 mL, l 1999 19:37: IV, [place] units/mL 00 Q---, preservativ to be e-free [...] tab, PO, l tablet 19:33: Daily, # [place] 00 14 tab, 0 Refill(s) Norvasc No Notes: Memoria 01-28 (Same as: l 17:35: Norvasc) [place] 00 Dextrose No 25 gm, 50 [place]za [...] 22:54: Mag-Ox Vin 00 400) Magnesium oxide 100xx=275a g elemental magnesium Dose=____m g magnesium oxide (___mg elemental magnesium) Coreg No Notes: Memoria 8-05 Give with l 02:00: food. (Same As: Coreg) Buspar No Notes: Memoria 8-04 (Same As: l 22:00: BuSpar) Fentanyl No Notes: Memoria 8- (Same as: l 21:06: Sublimaze) Preservati ve free. Norvasc No Notes: Memoria 8-04 (Same as: l 16:47: Norvasc) Wellbutrin No Notes: Memor ia 8- (Same As: l 16:00: Wellbutrin ) pantoprazol No Notes: For Memoria e - IV push l 14:00: reconstitu te with [...] release crush. Pravastatin No Notes: [place] janice 01-22 (Same as: l 14:00: Pravachol) Zoloft No Notes: Memoria 8-04 (Same as: l 14:00: Zoloft) Tramadol No Notes: Not Mem oria 01-22 to exceed l 09:44: 400mg/day. Vin (Same As: Ultram) Tylenol No Notes: Do Memor ia 01-22 not exceed l 09:44: 4 gm/day. [place] 00 (Same as: Tylenol) Fentanyl No Notes: [...] 01-21 Route: IM, l 20:01: Drug form: [place] 00 PDR/INJ, PRN, Dosing Weight 74.5, kg, [...] Same as: l 200 mL 18:26: Cardene [place] (Titrate.) 00 Concentrat IV 40 mg ion: (0.2 mg /1 ml ) Cyproheptad No 4 mg, 1 Mem oria ine 01-21 tab, l 18:00: Route: PO, Drug form: TAB, TID, Dosing Weight 72, kg, Start date: 01/21/21 13:00:00 CDT, Duration: 30 day, Stop date: 02/20/21 9:00:00 CDT Albuterol No Notes: SEE moria 01-21 RT l 17:49: DOCUMENTAT ION (Same [...] 0.9% 01-21 Same as: l 17:31: BD [place] Posiflush Sterile propofol 10 No Notes: If M emoria mg/mL 01-21 Diprivan - l (Titrate.) 17:31: change Nidia nn IV 1,000 mg 00 bottle & tubing every 12 hr Per state nursing law propofol can only be given by a nurse if patient is intubated or being intubated (unless the nurse is a CUSTOM STOCK MAKER). Same as: Diprivan midazolam No Route: IV, Me moria (ANES) 01-21 Drug form: l 17:18: SOLN, [place] 00 ONCE, Stop date: 01/21/21 12:18:00 CDT fentaNYL No Route: IV, Mem oria (ANES) 01-21 Drug form: l 17:18: INJ, ONCE, Stop date: 01/21/21 12:18:00 CDT niCARdipine No Route: IV, Memoria (ANES) 01-21 Drug form: l 17:18: INJ, ONCE, Vin 00 Stop date: 01/21/21 12:18:00 CDT glycopyrrol No Route: IV, Memoria ate (ANES) 01-21 Drug form: l 16:20: INJ, ONCE, Vin Stop date: 01/21/21 11:20:00 CDT EPINEPHrine No Route: IV, Memoria (ANES) 01-21 Drug form: l 16:20: INJ, ONCE, Oran Stop date: 01/21/21 11:20:00 CDT ePHEDrine No [...] 1{tbl} QD Take 1 UT MG tablet 707 tablet by Healt h 00:00: mouth 1 00 (one) time each day. rifaximin Yes 550 mg = 1 Me moria 550 MG Oral 7-06 tab, PO, l Tablet 18:46: TID, # 42 Ajke n [XIFAXAN] 00 tab, 2 Refill(s), Pharmacy: [facility], 154.94, cm, 12/24/20 10:43:00 CDT, [...] day, # 90 tab, 3 Refill(s), Pharmacy: [id number], 154.94, cm, 12/24/20 10:43:00 CDT, Height, 71.818, kg, 12/24/20 10:43:00 CDT, Weight Zinc 2020-0 Yes 140 mg, Memoria 7-06 PO, Daily, l 15:54: 0 Refill(s) Elderberry 2020-0 Yes 0 Memoria preparation 12-24 Refill(s) l 15:54: Buspar 2020-0 Yes PO, BID, 0 Memor ia 06 Refill(s) l 15:53: Dialyvite 0 Yes 0 Memoria 5000 06 Refill(s) l 15:53: busPIRone 2020-0 Yes 7.5mg Take 7.5 Uni [...] hr each day. tablet ascorbic Yes 500mg Q.[id number] Take 500 UT acid 5-15 [id number] mg by [facility] (Vitamin C) 00:00: 3D mouth 3 [...] tablet 00 Medical Branch GLIPIZIDE 5 Yes [id number] TAKE 1 [facility] mg tablet 4-06 TABLET BY ity o f 00:00: MOUTH [place] 00 TWICE Medical DAILY Branch BEFORE BREAKFAST AND BEFORE SUPPER doxazosin 4 2020-2020- No 4mg Take 4 mg [facility] mg tablet 06-27- by mouth 2 ity of 10:52: 00:00 (two) [place] 22 :00 times Medical daily. Branch doxazosin 4 Yes 4mg Take 1 Univ ers mg tablet 1-07 tablet by ity o f 00:00: mouth at [place] 00 bedtime. Medical Branch doxazosin 4 Yes 4mg Take 1 Univ ers mg tablet 1-07 tablet by ity o f 00:00: mouth at [place] 00 bedtime. Medical Branch glipiZIDE 5 2019-06- No [id number] 5mg Take 1 [facility] mg tablet 1-11 [...] by ity of tablet 00:00: mouth at [place] 00 bedtime. Medical Branch traZODone Yes 150mg Take 150 Uni vers 150 mg 8-13 mg by ity of tablet 00:00: mouth at [place] 00 bedtime. Medical Branch erythromyci 2020- No [id number] .5[in_u Place 0.5 Univers n 5 mg/gram [...] ophthalmic needed for drops Dry eyes. artificial 0 Yes 1[drp] Place 1 Un lori tears,hypro [...] 15:20: daily. Medica l 59 Center hydrALAZINE 0 Yes 100mg Q.[id number] Take [address] [facility] (APRESOLINE 7-20 [id number] mg by L ukes ) 100 MG 15:20: 3D mouth 3 Medica l tablet 59 (three) Center times daily. magnesium 2017-0 Yes 400mg QD Take [address] [facility] oxide 7-20 mg [facility] (MAG-OX) 15:20: mouth Medical 400 mg 59 daily. Center tablet metoclopram 2017-0 Yes 10mg Q.19438029 Take [address] [facility] gadiel HCl 7-20 [id number] by mouth 3 [facility] (REGLAN) 10 15:20: [...] 3 Center mg/mL (three) injection months. sertraline 2017-0 Yes anxiety QD Take by [...] l 59 Center hydrALAZINE 2017-0 Yes 100mg Q.05299789 Take [address] [facility] (APRESOLINE 7-20 [id number] mg by L ukes ) 100 MG 15:20: 3D mouth 3 Medica l tablet 59 (three) Center times daily. magnesium 2017-0 Yes 400mg QD Take [address] [facility] oxide 7-20 mg by [facility] (MAG-OX) 15:20: mouth Medical 400 mg 59 daily. Center tablet metoclopram 2017-0 Yes 10mg Q.13062321 Take [address] [facility] gadiel HCl 7-20 [id number] by mouth 3 [facility] (REGLAN) 10 15:20: [...] l 59 Center hydrALAZINE 2017-0 Yes 100mg Q.[id number] Take [address] [facility] (APRESOLINE 7-20 [id number] mg by L ukes ) 100 MG 15:20: 3D mouth 3 Medica l tablet 59 (three) Center times daily. magnesium 2017-0 Yes 400mg QD Take [address] [facility] [address] oxide 7-20 mg by [facility] (MAG-OX) 15:20: mouth Medical 400 mg 59 daily. Center tablet metoclopram 2017-0 Yes 10mg Q.22301954 Take [address] [facility] gadiel HCl 7-20 [id number] by mouth 3 [facility] (REGLAN) 10 15:20: [...] l 59 Center hydrALAZINE 2017-0 Yes 100mg Q.[id number] Take [address] [facility] [address] (APRESOLINE 7-20 [id number] mg by L ukes ) 100 MG 15:20: 3D mouth 3 Medica l tablet 59 (three) Center times daily. magnesium 2017-0 Yes 400mg QD Take [address] [facility] [address] oxide 7-20 mg by [facility] (MAG-OX) 15:20: mouth Medical 400 mg 59 daily. Center tablet metoclopram 2017-0 Yes 10mg Q.52358507 Take [address] [facility] gadiel HCl 7-20 [id number] by mouth 3 [facility] (REGLAN) 10 15:20: [...] l 59 Center hydrALAZINE 2017-0 Yes 100mg Q.[id number] Take [address] [facility] [address] (APRESOLINE 7-20 [id number] mg by L ukes ) 100 MG 15:20: 3D mouth 3 Medica l tablet 59 (three) Center times daily. magnesium 2017-0 Yes 400mg QD Take [address] [facility] [address] oxide 7-20 mg by [facility] (MAG-OX) 15:20: mouth Medical 400 mg 59 daily. Center tablet metoclopram 2017-0 Yes 10mg Q.12666664 Take [address] [facility] gadiel HCl 7-20 [id number] by mouth 3 [facility] (REGLAN) 10 15:20: [...] l 59 Center hydrALAZINE 2017-0 Yes 100mg Q.55041920 Take [address] [facility] [address] (APRESOLINE 7-20 [id number] mg by L ukes ) 100 MG 15:20: 3D mouth 3 Medica l tablet 59 (three) Center times daily. magnesium 2017-0 Yes 400mg QD Take [address] [facility] [address] oxide 7-20 mg by [facility] (MAG-OX) 15:20: mouth Medical 400 mg 59 daily. Center tablet metoclopram 2017-0 Yes 10mg Q.[id number] Take [address] [facility] gadiel HCl 7-20 [id number] by mouth 3 [facility] (REGLAN) 10 15:20: [...] l 59 Center hydrALAZINE 2017-0 Yes 100mg Q.[id number] Take [address] [facility] [address] (APRESOLINE 7-20 [id number] mg by L ukes ) 100 MG 15:20: 3D mouth 3 Medica l tablet 59 (three) Center times daily. magnesium 2017-0 Yes 400mg QD Take [address] [facility] [address] oxide 7-20 mg by [facility] (MAG-OX) 15:20: mouth Medical 400 mg 59 daily. Center tablet metoclopram 2017-0 Yes 10mg Q.22511784 Take [address] [facility] gadiel HCl 7-20 [id number] by mouth 3 [facility] (REGLAN) 10 15:20: [...] l 59 Center hydrALAZINE 2017-0 Yes 100mg Q.[id number] Take [address] [facility] [address] (APRESOLINE 7-20 [id number] mg by L ukes ) 100 MG 15:20: 3D mouth 3 Medica l tablet 59 (three) Center times daily. magnesium 2017- Yes 400mg QD Take [address] [facility] [address] oxide 7-20 mg by [facility] (MAG-OX) 15:20: mouth Medical 400 mg 59 daily. Center tablet metoclopram 2017- Yes 10mg Q.[id number] Take [address] [facility] gadiel HCl 7-20 [id number] by mouth 3 [facility] (REGLAN) 10 15:20: [...] l 59 Center hydrALAZINE 2017-0 Yes 100mg Q.[id number] Take [address] [facility] [address] (APRESOLINE 7-20 [id number] mg by L ukes ) 100 MG 15:20: 3D mouth 3 Medica l tablet 59 (three) Center times daily. magnesium 2017-0 Yes 400mg QD Take [address] [facility] [address] oxide 7-20 mg by [facility] (MAG-OX) 15:20: mouth Medical 400 mg 59 daily. Center tablet metoclopram 2017- Yes 10mg Q.[id number] Take [address] [facility] gadiel HCl 7-20 [id number] by mouth 3 [facility] (REGLAN) 10 15:20: [...] l 59 Center hydrALAZINE 2017-0 Yes 100mg Q.[id number] Take [address] [facility] [address] (APRESOLINE 7-20 [id number] mg by L ukes ) 100 MG 15:20: 3D mouth 3 Medica l tablet 59 (three) Center times daily. magnesium 2017-0 Yes 400mg QD Take [address] [facility] oxide 7-20 mg by [facility] (MAG-OX) 15:20: mouth Medical 400 mg 59 daily. Center tablet metoclopram 2017-0 Yes 10mg Q.48877816 Take [address] [facility] gadiel HCl 7-20 [id number] by mouth 3 [facility] (REGLAN) 10 15:20: [...] injection morning Use as directed . 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 Give with food [...] Total Volume: 1,000, Start date: 07/26/16 12:26:00 KNITTING 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, Duration: 30 day, Stop date: 08/25/16 12:25:00 KNITTING 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 Sodium 2016- No 500 mL, Memoria Chloride 2-05 500 ml/hr, l 0.154 13:30: Infuse Oran MEQ/ML 00 Over: 1 Injectable hr, Route: Solution IV, 500, Drug form: INJ, ONCE, Priority: STAT, Dosing Weight 92.273 kg, Start date: 07/26/16 7:30:00 KNITTING 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, Duration: 1 doses or times, Stop date: 07/26/16 7:30:00 KNITTING 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 Insulin No 60 units) Mendoza janice regular 2-04 WASTE: F/P l 08:39: - Black; E Oran 00 - Municipal Trash Bin Stable for [...] sodium 2-04 (Same as: l 03:00: Depakote Oran 00 ER) Once daily dosing; indicated for [...] Weight 92.273, kg, Start date: 07/24/16 9:00:00 KNITTING 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, Duration: 30 day, Stop date: 08/22/16 9:00:00 KNITTING 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 24 HR No Notes: Memoria Divalproex 2-03 (Same as: l Sodium 500 15:00: Depakote Her braden MG Extended 00 ER) Release Tablet [Depakote] gabapentin No Notes: Memor ia 300 MG Oral 2-03 (Same as: l Capsule 15:00: Neurontin) Herm Aspirin 81 No Notes: Memor ia MG Chewable 2-03 Take with l Tablet 15:00: food. Oran Lasix No Notes: Memoria 2-03 (Same as: l 15:00: Lasix) Vin 00 MEDICATION WASTE Product Size: 40 mg Product Wasted: ___ mg Zoloft No Notes: Memoria 2-03 (Same as: l 15:00: Zoloft) Oran Protonix No Notes: Memoria 2-03 Tablet l 15:00: should not Vin 00 be chewed or crushed. (Same as: Protonix) metoprolol No 100 mg, 2 Me moria extended 2-03 tab, l release 15:00: Route: PO, Herm Drug form: ERTAB, Daily, Start date: 07/24/16 9:00:00 KNITTING 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, Duration: 30 day, Stop date: 08/22/16 9:00:00 KNITTING 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 Insulin No Notes: Memoria Glargine 2- Same as: l 100 UNT/ML 15:00: Lantus) [...] in l Human 13:30: palms of Vin hands gently; Do not [...] Blood Glucose Results, Start date: 07/24/16 2:40:00 KNITTING 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, Duration: 30 day, Stop date: 08/23/16 2:39:00 KNITTING 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 Dextrose No 25 gm, 50 Mendoza janice 50% Syringe 2-03 mL, Route: l 08:40: IVP, Drug Form: INJ, Dosing Weight 92.273, kg, PRN, PRN Blood Glucose Results, Start date: 07/24/16 2:40:00 KNITTING 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, Duration: 30 day, Stop date: 08/23/16 2:39:00 KNITTING 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 Docusate No Notes: Memoria 2- (Same [...] l / 04:09: Duoneb) Vin Ipratropium 00 [place] 0.167 MG/ML Inhalant Solution [DuoNeb] Furosemide 2015-06 [...] INHALATION l 0.09 16:34: , PRN, PRN Oran MG/ACTUAT 00 as needed Metered for Dose [...] 2-26 (Same as: l 15:00: Lasix) May Oran 00 cause GI upset. Give with food or milk. Magnesium 2015-06 No Notes: Memori a Oxide 2-24 (Same as: l 13:36: Mag-Ox [place] 00 400) Magnesium oxide 489wy=727a g elemental magnesium Dose=____m g magnesium oxide (___mg elemental magnesium) Magnesium 2015-06 No Notes: Memori a Oxide 2-24 (Same as: l 09:47: Mag-Ox [place] 00 400) Magnesium oxide 081cm=793o g elemental magnesium Dose=____m g magnesium oxide [...] Memoria 2-24 (Same as: l 00:00: Norvasc) Oran 00 Insulin 2015-06 No Notes: Memoria Glargine [...] tab, PO, l tablet 15:35: Daily, 0 Oran 00 Refill(s) Sertraline 2015-06 Yes 200 mg [...] Weight 86.364, kg, Start date: 06/11/16 9:00:00 KNITTING 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, Duration: 30 day, Stop date: 07/10/16 9:00:00 KNITTING 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 Insulin 2015-06 No Notes: Memoria [...] sodium, 2-22 porcine l porcine 06:00: heparin Oran 2500 UNT/ML 00 Injectable Solution Albuterol 2015-06 No Notes: Memori a 0.833 MG/ML - (Same as: l / 03:00: Duoneb) Oran Ipratropium 00 [place] 0.167 MG/ML Inhalant Solution [DuoNeb] gabapentin 2015-06 No 300 mg, Mendoza janice 300 MG Oral 2- Route: PO, l Capsule 03:00: Drug form: Herm naeem 00 CAP, Q12H, Dosing Weight 86.364, kg, (CrCl 30 - 59 ml/min), Start date: 06/10/16 21:00:00 KNITTING 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, Duration: 30 day, Stop date: 07/10/16 9:00:00 KNITTING 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 divalproex 2015-06 No Notes: Memor ia sodium 2-22 (Same as: l 03:00: Depakote Vin 00 ER) Once daily dosing; indicated for migraines. Divalproex sodium extended-r elease tab. Do not chew or crush. "Do Not Crush" Losartan 2015-06 No Notes: Memoria 2-22 (Same as: l 03:00: Cozaar) Oran 00 Insulin, 2015-06 No Notes: Memoria Aspart, 2-22 Roll in l Human 00:50: palms of Oran 00 hands gently; Do not shake vigorously [...] Blood Glucose Results, Start date: 06/10/16 18:50:00 KNITTING 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, Duration: 30 day, Stop date: 07/10/16 18:49:00 KNITTING 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 Glucagon 2015-06 No 1 mg, Memoria 2-22 Route: IM, l 00:50: Drug form: Vin 00 PDR/INJ, PRN, Dosing Weight 86.364, kg, PRN Blood Glucose Results, Start date: 06/10/16 18:50:00 KNITTING 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, Duration: 30 day, Stop date: 07/10/16 18:49:00 KNITTING 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 Hydralazine 2015-06 No Notes: Mendoza [...] Weight 86.364, kg, Start date: 06/10/16 18:06:00 KNITTING 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, Stop date: 06/10/16 18:06:00 KNITTING 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 hydrOXYzine 2015-06 No Notes: Mendoza janice pamoate -21 (Same as: l 23:00: Vistaril) Oran 00 Furosemide 2015-06 No 60 mg, Memor ia 2-21 Route: l 22:32: IVP, Drug form: INJ, ONCE, Dosing Weight 86.364, kg, Start date: 06/10/16 16:32:00 KNITTING 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, Stop date: 06/10/16 16:32:00 KNITTING 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 Lasix 2015-06 No Notes: Memoria 2-21 (Same as: l 17:22: Lasix) MEDICATION WASTE Product Size: 40 mg Product Wasted: _0__ mg Albuterol 2015-06 No Notes: Memori a 0.833 MG/ML - (Same as: l 17:22: Duoneb) Ipratropium 00 [place] 0.167 MG/ML Inhalant Solution [DuoNeb] Promethazin Yes 25 mg = 1 M emoria e 1-06 supp, UT, l Hydrochlori 14:45: Q6H, Jake gonzalez de 25 MG 00 Nausea & Rectal Vomiting, Suppository # 9 supp, [Phenergan] 0 Refill(s) Ondansetron Yes Special Mem oria 4 MG 06 Instructio l Disintegrat 14:25: ns: Jake gonzalez [...] 2012-06 No Matthew Gary 4 mg, Memoria 0- Marry Route: l 04:10: IVP, ONCE, Dosing Weight 63.636, kg, Priority: STAT, Start date: 04/14/13 23:10:00, Stop date: 04/14/13 23:10:00 Sodium 2012- No Matthew Gary 1,000 mL, M emoria Chloride 0 Marry Rate: 125 l 0.9% IV 04:10: [...] Marx Rate: 500 l 0.9% 23:45: ml/hr, Oran (Bolus) IV 00 Infuse 500 mL over: [...] insulin No Blake 10 unit, Mem oria 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 6-11 Deangelo 0.1 mL, l H [...] 2011-0 No Blake 14 unit, Mem oria 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 6-10 Deangelo 0.14 mL, l H 14:00: Route: Oran SUB-Q, Drug form: INJ, Daily, Start date: 11/29/11 9:00:00, Duration: 30 day, Stop date: 12/28/11 9:00:00 Insulin 2011-0 No Blake 10 unit, Mem oria regular 6-10 Deangelo 0.1 mL, l 14:00: Brisa Route: Oran 00 SUB-Q, Drug form: SOLN, Daily, Start [...] 30 day, Stop date: 12/29/11 1:27:00 Reglan No Blake 10 mg, 2 Mendoza janice [...] mL, Route: l 04:01: Brown IVP, Drug Oran form: INJ, ONCE, Priority: STAT, Start date: 11/28/11 23:01:00, Stop date: 11/28/11 23:01:00 Zofran 2011-0 No Nikki 4 mg, 2 Mendoza janice 6-10 Sarah mL, Route: l 02:31: Brown IVP, Drug Oran form: INJ, ONCE, Priority: STAT, Start date: 11/28/11 21:31:00, Stop date: 11/28/11 21:31:00 NS (Bolus) No Arif Domenico 1,000 mL, Memoria IV 1,000 mL 11-27 Rate: l 22:48: 1,000 Oran 00 ml/hr, Infuse over: 1 hr, Route: IV, Dosing Weight 57.273 kg, Total Volume: 1,000, Start date: 11/28/11 17:48:00, Duration: 30 day, Stop date: 12/28/11 17:47:00 NS (Bolus) No Arif Domenico 1,000 mL, Memoria IV 1,000 mL 11-27 Rate: l 20:36: 1,000 Oran 00 ml/hr, Infuse over: 1 hr, Route: IV, Dosing Weight 57.273 kg, Total Volume: 1,000, Start date: 11/28/11 15:36:00, Duration: 30 day, Stop date: 12/28/11 15:35:00 Ativan 2011-0 No Arif Domenico 2 mg, 1 Mem oria 6-09 mL, Route: l 20:35: IVP, Drug Oran 00 form: INJ, ONCE, Priority: STAT, Start date: 11/28/11 15:35:00, Stop date: 11/28/11 15:35:00 Novolin R 2011-0 Yes Hughes-Jason 8 unit, M emoria 100 3-30 [place] SUB-Q, l units/mL 17:47: Dawson Q12H, 2 He rmann injectable 42 Pu vial, solution Substituti on Allowed, SOLN Novolin N Yes Hughes-Jason 10 unit, Memoria 100 3-30 [place] SUB-Q, l units/mL 17:46: Dawson Bedtime, H ermann subcutaneou 27 Pu 10 ml, s injection Substituti on Allowed, SUSP Novolin N Yes Hughes-Jason 14 unit, Memoria 100 3-30 [place] SUB-Q, l units/mL 17:44: Eunice QAM, 1 Her braden subcutaneou 37 Pu vial, s injection Substituti on Allowed, SUSP magnesium No Hughes-Jason 400 mg, 1 Memoria oxide 3-30 [place] tab, l 14:55: Dawson Route: PO, Her braden 00 Pu Drug form: TAB, ONCE, Priority: STAT, Start date: 09/18/11 9:55:00, Stop date: 09/18/11 9:55:00 Insulin 2011-0 No Hughes-Jason 8 unit, Mem oria regular 3-30 [place] 0.08 mL, l 14:22: Dawson Route: Oran 00 Pu SUB-Q, Drug form: SOLN, ONCE, Priority: STAT, Start date: 09/18/11 9:22:00, Stop date: 09/18/11 9:22:00 Lactated 2011- No Hughes-Jason 1,000 mL, Memoria Ringers 3-30 [place] Rate: l (Bolus) IV 14:16: Dawson 1,000 He rmann 1,000 mL 00 Pu ml/hr, Infuse over: 1 hr, Route: IV, Total Volume: 1,000, Bolus Dose, Priority: STAT, Start date: 09/18/11 9:16:00, Duration: 1 doses or times, Stop date: 09/18/11 10:15:00 Sodium No Hughes-Jason 1,000 mL, Me moria Chloride 3-30 [place] Rate: l 0.9% 14:06: Dawson 1,000 Vin (Bolus) IV 00 Pu ml/hr, 1000 mL Infuse over: 1 hr, Route: IV, kg, Total Volume: 1,000, Bolus Dose, Priority: STAT, Start date: 09/18/11 9:06:00, Duration: 1 doses or times, Stop date: 09/18/11 10:05:00 sulfamethox Yes Substituti Memoria azole 3-30 on Allowed l 14:04: Vin 58 Sodium No Hughes-Jason 1,000 mL, Me moria Chloride 3-30 [place] Rate: l 0.9% 13:56: Dawson 1,000 Vin (Bolus) IV 00 Pu ml/hr, 1000 mL Infuse over: 1 hr, Route: IV, kg, Total Volume: 1,000, Bolus Dose, Priority: STAT, Start date: 09/18/11 8:56:00, Duration: 1 doses or times, Stop date: 09/18/11 9:55:00 clindamycin No Eber L 300 mg, 2 Memoria 3-21 Anabelle cap, l 21:00: Route: PO, Oran 00 Drug form: CAP, Q8H, Start date: 09/09/11 16:00:00, Duration: 30 day, Stop date: 10/09/11 8:00:00 Colace 100 Yes Luna 100 mg, 1 Memoria mg oral 3-21 Amelia cap, PO, l capsule 18:47: Valier BID, 60 Her braden 19 cap, Substituti on Allowed, CAP clindamycin Yes Luna 300 mg, 2 Memoria 150 mg oral 3-21 Amelia cap, PO, l capsule 18:46: Zeeshan Q8H, 30 Her braden 55 cap, Substituti on Allowed, CAP [place] Yes Luna 1 tab, PO, Memoria 10/325 oral 3-21 Amelia Q4H, PRN, l tablet 18:46: Zeeshan 30 tab, Herm naeem 36 Pain, Substituti on Allowed, Maintenanc e, TAB [place] 2012-0 No Hollie Donavan 1 tab, Mendoza janice [...] 3-19 Omidvar tab, l 15:30: Route: PO, Oran 00 Drug form: TAB, Daily, Start date: [...] Josefina 0.1 mL, l 14:19: Gavin Route: Oran 00 IVP, Drug form: INJ, Q2MIN, PRN [...] Josefina 0.25 mL, l 14:19: Gavin Route: Oran 00 IVP, Drug form: INJ, Q5Min, PRN Pain Score 4-6, Start date: 09/07/11 9:19:00, Duration: 5 doses or times, Stop date: Limited # of times acetaminoph No Gayle 15 mL, M emoria en-hydrocod 09-06 Josefina Route: PO, l one 325 14:19: [place] Drug Form: He rmann mg-10 mg/15 00 SOLN, Q4H, mL oral PRN Pain solution Score 4-6, Start date: 09/07/11 9:19:00, Duration: 1 day, Stop date: 09/08/11 8:00:00 Lactated No Bismark 1,000 mL, Me moria Ringers IV 09-06 Omidvar Rate: 125 l 1,000 mL 14:06: ml/hr, Oran 00 Infuse over: 8 hr, Route: IV, Dosing Weight 68.182 kg, Total Volume: 1,000, Start date: 09/07/11 9:06:00, Duration: 30 day, Stop date: 10/07/11 9:05:00 clindamycin No Maximo R 600 mg, Memoria 09-06 Arias Route: l 13:31: IVPB, Oran 00 ONCE, Start date: 09/07/11 8:31:00, Stop [...] 3-17 Wong tab, l 04:00: Route: PO, Oran 00 Drug form: ECTAB, Daily, PRN Constipati [...] Duration: 30 day, Stop date: 10/04/11 18:10:00 [place] 2011-0 No Mahammad 1 tab, Memori a [...] Duration: 30 day, Stop date: 10/04/11 9:49:00 [place] 2011-0 No Bismark 1 tab, Memoria 10/325 oral 3-16 Omidvar Route: PO, l tablet 14:49: Drug Form: Nidia nn 00 TAB, Q4H, PRN Pain, Start date: 09/04/11 9:49:00, Stop date: 10/04/11 9:48:00 labetalol 2011-0 No Gregory F 5 mg, Mendoza janice 3-16 Puga Route: IV, l 14:40: ONCE, Oran 00 Start date: 09/04/11 9:40:00, Stop date: [...] Beck 0.5 mL, l 13:37: Hayden Route: Oran IVP, Drug form: INJ, Q30Min, PRN Other [...] 3-15 Anabelle mL, Route: l 16:00: IVPB, Oran 00 [id number], Start date: 09/03/11 11:00:00, Duration: 30 day, Stop date: 10/03/11 8:00:00 potassium 2011-0 No Bism[place] 40 mEq, 2 M emoria chloride 3-15 Omidvar tab, l 13:39: Route: PO, Oran Drug form: ERTAB, ONCE, Start date: 09/03/11 8:39:00, Stop date: 09/03/11 8:39:00 [place] 5/325 2011-0 No Rosalino 1 tab, M emoria oral tablet 3-15 Kavon Route: PO, l 05:00: Drug Form: Oran 00 TAB, Q4H, Start date: 09/03/11 0:00:00, Duration: 30 day, Stop date: 10/02/11 20:00:00 Geodon 2011-0 No Eber L 120 mg, 3 Memoria 3-15 Anabelle cap, l 02:00: Route: PO, Oran Drug form: CAP, Bedtime, Start date: 09/02/11 [...] Duration: 30 day, Stop date: 10/02/11 9:00:00 [place] 5/325 2011-0 No Rosalino 1 tab, M emoria oral tablet 3-14 Kavon Route: PO, l 16:25: Drug Form: Oran 00 TAB, Q4H, PRN Pain, Start date: 09/02/11 11:25:00, Duration: 30 day, Stop date: 10/02/11 11:24:00 magnesium 2011-0 No Bismark 4 gm, 50 Me moria sulfate 3-14 Omidvar mL, Route: l 16:15: IVPB, Drug form: INJ, ONCE, Start date: 09/02/11 11:15:00, Stop date: 09/02/11 11:15:00 Lovenox 2011-0 No Missael 40 mg, 0.4 Mem oria 3-14 Movva mL, Route: l 14:00: SUB-Q, Oran 00 Drug form: INJ, Daily, Start date: 09/02/11 9:00:00, Duration: 30 day, Stop date: 10/01/11 9:00:00 vancomycin 2011-0 No Eber L 1 gm, Memoria 3-14 Anabelle Route: l 14:00: IVPB, Drug form: INJ, [id number], Start date: 09/02/11 9:00:00, Duration: 30 day, [...] 2011-0 No [place] 15 unit, Mendoza janice 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 3-14 Omidvar 0.15 mL, l H 02:00: Route: Oran SUB-Q, Drug form: INJ, Q12H, Start date: [...] 3-14 Barbra Route: l 01:07: Feliciano IVP, Oran 00 Q5Min, PRN Pain Score 4-6, Start [...] Barbra Route: l 01:07: Feliciano IVP, PRN, Oran 00 PRN Benzodiaze pine Reversal, Initial dose, Start date: 09/01/11 20:07:00, Duration: 30 day, Stop date: 10/01/11 20:06:00 ondansetron No Mariaelena-Corea 4 mg, Memoria 3-14 Barbra Route: l 01:07: Feliciano IVP, ONCE, Vin 00 PRN Nausea & Vomiting, Start date: 09/01/11 20:07:00 vancomycin No Mele 1 gm, Mem oria 3-14 Gauvain Route: l 01:00: IVPB, Drug Vin 00 form: INJ, [id number], Start date: 09/01/11 20:00:00, Duration: 30 day, [...] Route: l 00:00: IVPB, Drug form: INJ, [id number], Start date: 09/01/11 19:00:00, Duration: 30 day, [...] mL, Me moria Ringers IV 3-13 Manuel [place] Rate: 100 l 1,000 mL 19:03: ml/hr, [...] Madden 0.08 mL, l 15:28: Gurinder Route: Oran 00 SUB-Q, Drug form: SOLN, ONCE, Priority: STAT, Start date: 09/01/11 10:28:00, Stop date: 09/01/11 10:28:00 Sodium 2011-0 No [place] 1,000 mL, Memori a Chloride 3-13 Madden Rate: l 0.9% 14:53: Gurinder 1,000 Oran (Bolus) IV 00 ml/hr, 1,000 mL Infuse [...] L 1,000 mL, M emoria Chloride 3- [place] Rate: l 0.9% 10:41: 1,000 Vin (Bolus) IV 00 ml/hr, 1000 mL Infuse over: 1 hr, Route: IV, Dosing Weight 68.182 kg, Total Volume: 1,000, Bolus Dose, Priority: STAT, Start date: 09/01/11 5:41:00, Duration: 1 doses or times, Stop date: 09/01/11 6:40:00 ondansetron 2011-0 No Bee L 4 mg, Memoria 3-13 [place] Route: l 09:06: IVP, Drug Vin 00 form: INJ, ONCE, Priority: STAT, Start date: 09/01/11 4:06:00, Stop date: 09/01/11 4:06:00 morphine 2012-0 No Bee L 4 mg, Mem oria Sulfate 3- [place] Route: l 09:06: IVP, ONCE, Vin 00 Priority: STAT, Start date: 09/01/11 4:06:00, Stop date: 09/01/11 4:06:00 Sodium 2011-0 No Bee L 1,000 mL, M emoria Chloride 3- [place] Rate: l 0.9% 08:42: 1,000 Vin (Bolus) [...] Akmal SUB-Q, l human 14:40: TID, 30 Oran recombinant 10 vial, 3, 100 3, units/mL [...] chloride 3-04 Akmal Route: l 13:28: IVPB, Oran 00 ONCE, Priority: STAT, Start date: 08/23/11 [...] date: 08/23/11 6:27:00 magnesium 2011-0 No Brooks Noma 2 gm, 50 Memoria sulfate 3-04 Akmal mL, Route: l 12:26: IVPB, Drug Oran form: INJ, ONCE, Total dose = 2 [...] 3-02 Akmal tab, l 15:00: Route: PO, Oran Drug form: TAB, Daily, Start date: 08/21/11 [...] mL, Route: l 17:15: Ahmed IVP, Drug [place] form: INJ, Q8H, PRN Nausea, Start date: 08/20/11 11:15:00, Duration: 30 day, Stop date: 09/19/11 11:14:00 insulin 2011-0 No Yury 10 unit, Mem oria 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 - [place]ato Route: l H 16:00: [place] SUB-Q, Nidia nn 00 ONCE, Start date: 08/20/11 10:00:00, Stop date: 08/20/11 10:00:00 trazodone 2011- Yes 200 mg, 2 Mem oria 100 mg oral 3-01 tab, PO, l tablet 15:37: Bedtime, Vin 27 90 tab, Substituti on Allowed, TAB benztropine Yes 1 mg, 1 Mem oria 1 mg oral 3-01 tab, PO, l tablet 15:35: BID, 60 Oran 25 tab, Substituti on Allowed, TAB Geodon 60 Yes 120 mg, 2 Mem oria mg oral 3-01 cap, PO, l capsule 15:35: Bedtime, Jake n 12 60 cap, Substituti on Allowed, CAP insulin No Yury 10 unit, 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 Route: l H 15:00: [...] Stop date: 08/20/11 3:38:00 Insulin 2011- No Brooks Noam 10 unit, Memoria regular 08-19 Akmal SUB-Q, l 09:28: BID, Oran 23 Substituti on Allowed insulin 2011- No 10 unit, Memori a 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 08-19 SUB-Q, l H 09:26: BID, Vin 18 Substituti on Allowed NS 1,000 mL No Brooks Noam 1,000 mL, Memoria 08-19 Akmal Rate: 150 l 09:06: ml/hr, Oran 00 Infuse over: 6.7 hr, Route: IV, [...] 2011- No Yury 18 unit, 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 3- Gato 0.18 mL, l H [...] Dextrose No [facility]ury 25 gm, [facility] Syringe 08-19 Gato ml, Route: l 08:46: Rivero IVP, Drug He rmann 00 Form: INJ, PRN, PRN Blood Glucose Results, Start date: 08/20/11 2:46:00, Duration: 30 day, Stop date: 09/19/11 3:45:00 ondansetron No [facility] [place] Route: l 07:42: Eunice IVP, Drug Herm naeem 00 Pu form: INJ, ONCE, Priority: STAT, Start date: 08/20/11 1:42:00, Stop date: 08/20/11 1:42:00 GI cocktail No Hughes-Jason 30 ml, Memoria 08-19 [place] Route: PO, l 05:12: Dawson Drug Form: Her braden 00 Pu SUSP, ONCE, STAT, Start date: 08/19/11 23:12:00, Stop date: 08/19/11 23:12:00 ondansetron No Hughes-Jason 4 mg, [facility] 08-19 [place] Route: PO, l 05:10: Dawson Drug form: Her braden 00 Pu TABDIS, ONCE, Priority: STAT, Start date: 08/19/11 23:10:00, Stop date: 08/19/11 23:10:00 Lactated 2011- No Hughes-Jason 1,000 mL, Memoria Ringers 08-19 [place] Rate: l (Bolus) IV 05:10: Eunice 1,000 He rmann 1000 mL 00 Pu ml/hr, Infuse over: 1 hr, Route: IV, Total Volume: 1,000, Bolus Dose, Priority: STAT, Start date: 08/19/11 23:10:00, Duration: 1 doses or times, Stop date: 08/20/11 0:09:00 Insulin 2011- No Hughes-Jason 7 unit, Mem oria regular 08-19 [place] 0.07 mL, l 04:15: Eunice Route: Vin 00 Pu SUB-Q, Drug form: SOLN, ONCE, Priority: STAT, Start date: 08/19/11 22:15:00, Stop date: 08/19/11 22:15:00 Geodon 60 2011- No Yury 60 mg, 1 M emoria mg oral 2-29 Gato cap, PO, l capsule 23:24: Rivero BID, 180 Oran 43 cap, Substituti on Allowed, CAP trazodone No 300 mg, 1 Mem oria 300 mg oral 2-29 tab, PO, l tablet 23:23: Bedtime, Oran 58 15 tab, Substituti on Allowed, TAB Effexor XR Yes Yury 75 mg, 1 Memoria 75 mg oral 2-29 Gato cap, PO, l capsule, 23:22: Rivero Daily, 30 Oran extended 24 cap, release Substituti on Allowed [...] Completed [facility] Vaccine 00:00:00 [facility] Influenza Virus 2020-02-20 Completed Universit y of Vaccine 00:00:00 [facility] TDAP (ADACEL) VACCINE 2019-07-25 Completed Uni versity of 00:00:00 [facility] Meningococcal B, OMV 2019-07-25 Completed Univ ersity of 00:00:00 [facility] Meningococcal 2019-07-25 Completed University of Polysaccharide 00:00:00 [facility] tawnya (groups A, C, Y and Branc h W-135) conjugate vaccine (MCV4P) TDAP (ADACEL) VACCINE 2019-07-25 Completed Uni versity of 00:00:00 [facility] Meningococcal B, OMV 2019-07-25 Completed Univ ersity of 00:00:00 [facility] Meningococcal 2019-07-25 Completed University of Polysaccharide 00:00:00 [facility] tawnya (groups A, C, Y [...] ial Vin 00:00:00 influenza virus 2018-03-29 Completed [facility] Vin vaccine, inactivated 00:00:00 hepatitis B vaccine 2017-11-26 Completed Memor ial Vin 00:00:00 influenza virus 2017-10-25 [facility] vaccine, inactivated 00:00:00 pneumococcal 2017-10-25 Completed [facility] braden 23-valent vaccine 00:00:00 Influenza Virus 2017-06-22 Completed Universit y of Vaccine Quad IM 3+ 00:00:00 [facility] Influenza Virus 2017-06-22 Completed Universit y of Vaccine Quad IM 3+ 00:00:00 [facility] Influenza Virus 2016-04-02 Completed Universit y of Vaccine Quad IM 3+ 00:00:00 [facility] Influenza Virus 2016-04-02 Completed Universit y of Vaccine Quad IM 3+ 00:00:00 [facility] Influenza Virus 2015-10-28 Completed Universit y of Vaccine Quad IM 3+ 00:00:00 [facility] Influenza Virus 2015-10-28 Completed Universit y of Vaccine Quad IM 3+ 00:00:00 [facility] Vital Signs Vital Name Observation Time [...] 2020-06-27 16:33:00 171 mm[Hg] Univer sity of [facility] Diastolic blood 2020-06-27 16:33:00 98 mm[Hg] Unive rsity of [facility] Heart rate 2020-06-27 16:33:00 71 /min Universi ty of [facility] Respiratory rate 2020-06-27 16:29:00 19 /min [facility] Body height 2020-06-27 16:29:00 154.9 cm Universi ty [facility] Body weight 2020-06-27 16:29:00 77.293 kg Universi ty of [facility] BMI 2020-06-27 16:29:00 32.20 [facility] Oxygen saturation in 2020-06-27 16:29:00 99 /min [facility] Arterial blood by [facility] Pulse oximetry Branch Systolic blood 2020-06-27 16:33:00 171 mm[Hg] Univer sity of [facility] Diastolic blood 2020-06-27 16:33:00 98 mm[Hg] Unive rsity of [facility] Heart rate 2020-06-27 16:33:00 71 /min Universi ty of [facility] Respiratory rate 2020-06-27 16:29:00 19 /min [facility] Body height 2020-06-27 16:29:00 154.9 cm [facility] Body weight 2020-06-27 16:29:00 77.293 kg [facility] BMI 2020-06-27 16:29:00 32.20 kg/m2 [facility] Oxygen saturation in 2020-06-27 16:29:00 99 /min University of Arterial blood by [facility] Pulse oximetry Branch Height/Length 2021-07-08 11:50:13 154.9 cm Measured Weight Dosing 2021-07-08 11:50:13 85.00 kg Height/Length 2021-07-08 11:47:31 154.9 cm Measured Weight Dosing 2021-07-08 11:47:31 85.00 kg Height/Length 2021-07-08 11:47:20 154.9 cm Measured Weight Dosing 2021-07-08 11:47:20 85.00 kg Systolic blood 2021-07-08 19:43:00 189 mm[Hg] [facility] pressure Diastolic blood 2021-07-08 19:43:00 104 mm[Hg] [facility] pressure Heart rate 2021-07-08 18:56:00 74 /min [facility] Body temperature 2021-07-08 18:56:00 36.39 Cathleen [facility] Body height 2021-07-08 18:56:[address] [facility] Body weight 2021-07-08 18:56:[address] [facility] BMI 2021-07-08 18:56:00 29.41 kg/m2 [facility] Oxygen saturation in 2021-07-08 18:56:00 100 /min [facility] Arterial blood by Pulse oximetry Respiratory rate 2021-06-18 16:36:00 11 /min [facility] Systolic (mm Hg) 2021-01-29 20:03:00 Mendoza rial Oran Diastolic (mm Hg) 2021-01-29 20:03:00 Mem orial Oran Systolic (mm Hg) 2021-01-29 19:40:00 Mendoza rial Oran Diastolic (mm Hg) 2021-01-29 19:40:00 Mem orial Oran Systolic (mm Hg) 2021-01-29 18:05:00 Mendoza rial Oran Diastolic (mm Hg) 2021-01-29 18:05:00 Mem orial Vin Respitory Rate 2021-01-29 16:55:00 Memori al Oran Temperature Oral (F) 2021-01-29 16:45:00 97.3 F Memorial Vin Respitory Rate 2021-01-29 16:45:00 Memori al Vin Respitory Rate 2021-01-29 16:30:00 Memori al Oran Temperature Oral (F) 2021-01-29 13:10:00 97.6 F Memorial [place]an Systolic (mm Hg) 2021-01-27 05:00:00 Mendoza rial Vin Diastolic (mm Hg) 2021-01-27 05:00:00 Mem orial Oran Systolic (mm Hg) 2021-01-27 04:00:00 Mendoza rial Vin Diastolic (mm Hg) 2021-01-27 04:00:00 Mem orial Vin Systolic (mm Hg) 2021-01-27 03:00:00 Mendoza rial Oran Diastolic (mm Hg) 2021-01-27 03:00:00 Mem orial Oran Respitory Rate 2021-01-26 19:00:00 Memori al Oran Respitory Rate 2021-01-26 18:00:00 Memori al Vin Respitory Rate 2021-01-26 17:00:00 Memori al Oran Temperature Oral (F) 2021-01-22 13:00:00 97.6 F Memorial Vin Height 2021-01-21 18:25:00 149.86 cm Memorial Vin Weight 2021-01-21 18:25:00 Memorial Vin BMI Calculated 2021-01-21 18:25:00 Memori al Oran Height 2021-01-21 17:09:00 157.48 cm Memorial Oran Height 2021-01-21 13:09:00 157.48 cm [facility] Oran Weight 2021-01-21 13:09:00 [facility] Oran BMI Calculated 2021-01-21 13:09:00 Memori al Oran Heart Rate 2021-01-21 12:50:00 Memorial [place]an Systolic (mm Hg) 2020-12-24 15:43:00 Mendoza rial Vin Diastolic (mm Hg) 2020-12-24 15:43:00 Mem orial Vin Heart Rate 2020-12-24 15:43:00 Memorial Vin Height 2020-12-24 15:43:00 154.94 cm Memorial Oran Weight 2020-12-24 15:43:00 Memorial Oran BMI Calculated 2020-12-24 15:43:00 Memori al [place]an Systolic (mm Hg) 2016-07-30 14:00:00 Mendoza rial Vin Diastolic (mm Hg) 2016-07-30 14:00:00 Mem orial Oran Respitory Rate 2016-07-30 14:00:00 Memori al Oran Heart Rate 2016-07-30 14:00:00 Memorial Vin Temperature Oral (F) 2016-07-30 14:00:00 97.4 F Memorial Vin Systolic (mm Hg) 2016-07-30 10:45:00 Mendoza rial Vin Diastolic (mm Hg) 2016-07-30 10:45:00 Mem orial Vin Heart Rate 2016-07-30 10:45:00 Memorial Vin Temperature Oral (F) 2016-07-30 10:45:00 97.2 F Memorial Vin Respitory Rate 2016-07-30 10:45:00 Memori al Oran Heart Rate 2016-07-30 06:35:00 Memorial Vin Temperature Oral (F) 2016-07-30 06:35:00 97.0 F Memorial Vin Respitory Rate 2016-07-30 06:35:00 Memori al Vin Systolic (mm Hg) 2016-07-30 06:35:00 Mendoza rial Oran Diastolic (mm Hg) 2016-07-30 06:35:00 Mem orial Vin Weight 2016-07-24 02:13:00 Memorial Oran BMI Calculated 2016-07-24 02:13:00 Memori al Vin Height 2016-07-24 02:13:00 160.02 cm Memorial Oran Respitory Rate 2016-06-15 15:00:00 Memori al Vin Systolic (mm Hg) 2016-06-15 15:00:00 Mendoza rial Vin Diastolic (mm Hg) 2016-06-15 15:00:00 Mem orial Vin Respitory Rate 2016-06-15 14:00:00 Memori al Vin Systolic (mm Hg) 2016-06-15 14:00:00 Mendoza rial Vin Diastolic (mm Hg) 2016-06-15 14:00:00 Mem orial Vin Respitory Rate 2016-06-15 13:29:00 Memori al Oran Systolic (mm Hg) 2016-06-15 13:29:00 Mendoza rial Oran Diastolic (mm Hg) 2016-06-15 13:29:00 Mem orial Vin Temperature Oral (F) 2016-06-14 10:56:00 97.1 F Memorial Vin Temperature Oral (F) 2016-06-14 06:55:00 97.1 F Memorial Oran Temperature Oral (F) 2016-06-12 10:00:00 96.8 F Memorial Vin Weight 2016-06-11 04:25:00 Memorial Vin Height 2016-06-11 04:25:00 160.02 cm Memorial Vin BMI Calculated 2016-06-11 04:25:00 Memori al Vin Heart Rate 2016-06-11 02:04:00 Memorial Vin Heart Rate 2016-06-11 00:00:00 Memorial Vin Heart Rate 2016-06-10 20:30:00 Memorial Oran Weight 2016-06-10 16:04:00 Memorial Vin BMI Calculated 2016-06-10 16:04:00 Memori al Oran Height 2016-06-10 16:04:00 160.02 cm Memorial Vin Temperature Oral (F) 2014-06-26 15:12:00 98.0 F [facility] Oran Systolic (mm Hg) 2014-06-26 15:12:00 Mendoza rial Oran Heart Rate 2014-06-26 15:12:00 Memorial Vin Diastolic (mm Hg) 2014-06-26 15:12:00 Mem orial Vin Respitory Rate 2014-06-26 15:12:00 Memori al Vin Systolic (mm Hg) 2014-06-26 13:53:00 Mendoza rial Vin Diastolic (mm Hg) 2014-06-26 13:53:00 Mem orial Oran Respitory Rate 2014-06-26 13:53:00 Memori al Vin Temperature Oral (F) 2014-06-26 13:53:00 98.0 F Memorial Vin Temperature Oral (F) 2014-06-26 12:37:00 98.2 F Memorial Vin Respitory Rate 2014-06-26 12:37:00 Memori al Vin Systolic (mm Hg) 2014-06-26 12:37:00 Mendoza rial Oran Diastolic (mm Hg) 2014-06-26 12:37:00 Mem orial Vin Heart Rate 2014-06-26 09:21:00 Memorial Oran Heart Rate 2014-06-26 06:08:00 Memorial Vin Height 2014-06-26 05:35:00 154.94 cm Memorial Oran Weight 2014-06-26 05:35:00 Memorial Vin BMI Calculated 2014-06-26 05:35:00 Memori al Oran Respitory Rate 2013-04-15 06:10:00 Memori al Oran Diastolic (mm Hg) 2013-04-15 06:10:00 Mem orial Vin Heart Rate 2013-04-15 06:10:00 Memorial Vin Systolic (mm Hg) 2013-04-15 06:10:00 Mendoza rial Oran Temperature Oral (F) 2013-04-15 06:10:00 98.7 F Memorial Vin Respitory Rate 2013-04-15 05:37:00 Memori al Vin Diastolic (mm Hg) 2013-04-15 05:37:00 Mem orial Vin Systolic (mm Hg) 2013-04-15 05:37:00 Mendoza rial Oran Temperature Oral (F) 2013-04-15 05:37:00 98.2 F Memorial Oran Heart Rate 2013-04-15 05:37:00 Memorial Vin Height 2013-04-15 02:06:00 160.02 cm [facility] Oran Weight 2013-04-15 02:06:00 [facility] Oran Temperature Oral (F) 2013-04-15 02:06:00 98.6 F [facility] Or[place] Respitory Rate 2013-04-15 02:06:00 Memori al Oran Heart Rate 2013-04-15 02:06:00 [facility] Oran Diastolic (mm Hg) 2013-04-15 02:06:00 Mem orial Vin Systolic (mm Hg) 2013-04-15 02:06:00 Mendoza rial Oran Weight 2012-03-14 21:33:00 [facility] [place] Systolic (mm Hg) 2011-12-01 00:33:00 Mendoza rial Vin Respitory Rate 2011-12-01 00:33:00 Memori al Vin Heart Rate 2011-12-01 00:33:00 [facility] Oran Diastolic (mm Hg) 2011-12-01 00:33:00 Mem orial Oran Temperature Oral (F) 2011-12-01 00:33:00 99.6 F Memorial Vin Diastolic (mm Hg) 2011-11-30 21:00:00 Mem orial Oran Heart Rate 2011-11-30 21:00:00 [facility] Oran Respitory Rate 2011-11-30 21:00:00 Memori al Vin Systolic (mm Hg) 2011-11-30 21:00:00 Mendoza rial Vin Temperature Oral (F) 2011-11-30 21:00:00 99.8 F Memorial Oran Respitory Rate 2011-11-30 16:30:00 Memori al Oran Systolic (mm Hg) 2011-11-30 16:30:00 Mendoza rial Oran Diastolic (mm Hg) 2011-11-30 16:30:00 Mem orial Oran Heart Rate 2011-11-30 16:30:00 Memorial Vin Temperature Oral (F) 2011-11-30 16:30:00 99.8 F Memorial Vin Weight 2011-11-29 11:40:00 [facility] [place] Height 2011-11-29 11:40:00 157.48 cm Memorial Vin Weight 2011-11-28 17:16:00 [facility] Vin Weight 2011-09-18 13:30:00 [facility] Vin Height 2011-09-18 13:30:00 154.94 cm [facility] Oran Heart Rate 2011-09-09 13:31:00 Memorial Vin Systolic (mm Hg) 2011-09-09 13:02:00 Mendoza rial Oran Diastolic (mm Hg) 2011-09-09 13:02:00 Mem orial Oran Respitory Rate 2011-09-09 13:02:00 Memori al Vin Temperature Oral (F) 2011-09-09 13:02:00 97.5 F [facility] Oran Diastolic (mm Hg) 2011-09-09 08:00:00 Mem orial Oran Heart Rate 2011-09-09 08:00:00 [facility] [place] Temperature Oral (F) 2011-09-09 08:00:00 98.6 F [facility] [place] Respitory Rate 2011-09-09 08:00:00 Memori al Vin Systolic (mm Hg) 2011-09-09 08:00:00 Mendoza rial Oran Respitory Rate 2011-09-09 04:55:00 Memori al Oran Diastolic (mm Hg) 2011-09-09 04:55:00 Mem orial Oran Systolic (mm Hg) 2011-09-09 04:55:00 Mendoza rial Oran Heart Rate 2011-09-09 04:55:00 [facility] Oran Temperature Oral (F) 2011-09-09 00:55:00 98.7 F Memorial Vin Weight 2011-09-01 19:59:00 [facility] Vin Height 2011-09-01 19:59:00 154.94 cm Memorial Vin Height 2011-09-01 07:01:00 154.94 cm [facility] Oran Weight 2011-09-01 07:01:00 Memorial Vin Respitory Rate 2011-08-23 18:00:00 Memori al Oran Heart Rate 2011-08-23 18:00:00 Memorial Vin Systolic (mm Hg) 2011-08-23 18:00:00 Mendoza rial Vin Diastolic (mm Hg) 2011-08-23 18:00:00 Mem orial Oran Temperature Oral (F) 2011-08-23 18:00:00 97.7 F Memorial Vin Heart Rate 2011-08-23 14:24:00 [facility] Oran Temperature Oral (F) 2011-08-23 14:24:00 98.2 F [facility] Oran Diastolic (mm Hg) 2011-08-23 14:24:00 Mem orial Vin Systolic (mm Hg) 2011-08-23 14:24:00 Mendoza rial Vin Respitory Rate 2011-08-23 14:24:00 Memori al Oran Systolic (mm Hg) 2011-08-23 11:15:00 Mendoza rial Vin Diastolic (mm Hg) 2011-08-23 11:15:00 Mem orial Oran Temperature Oral (F) 2011-08-23 11:00:00 98.3 F Memorial Vin Heart Rate 2011-08-23 11:00:00 [facility] Vin Respitory Rate 2011-08-22 22:00:00 Memori al Vin Height 2011-08-20 09:12:00 154.94 cm [facility] Weight 2011-08-20 09:12:00 [facility] Height 2011-08-19 20:28:00 154.94 cm [facility] Weight 2011-08-19 20:28:00 [facility] Procedures Procedure Date / Time Performing Clinician Source Performed POC GLUCOSE 2021-06-18 17:00:00 Aurelio Schumacher spital HEPATITIS B SURFACE 2021-06-18 14:07:00 [facility] ANTIGEN VANCOMYCIN LEVEL, RANDOM 2021-06-18 13:44:00 [facility] HC COMPLETE BLD COUNT 2021-06-18 13:44:00 [facility] W/AUTO DIFF BASIC METABOLIC PANEL 2021-06-18 11:27:00 [facility] ESTIMATED GFR 2021-06-18 11:27:00 Aurelio Schumacher Confucianism Ho spital POC GLUCOSE 2021-06-18 08:07:00 Aurelio Schumacher Confucianism Ho spital HEMODIALYSIS 2021-06-18 06:16:53 Bill Cooper Ho spital POC GLUCOSE 2021-06-18 01:26:00 Aurelio Schumacher [facility]ucianism Ho spital POC GLUCOSE 2021-06-17 21:58:00 Aurelio Schumacher Confucianism Ho spital HEMODIALYSIS 2021-06-17 18:25:45 Bill Cooper [facility] Ho spital POC GLUCOSE 2021-06-17 17:36:00 RenettaAurelio Confucianism Ho spital POC GLUCOSE 2021-06-17 13:51:00 RenettaAurelio Confucianism spital BASIC METABOLIC PANEL 2021-06-17 11:16:00 [facility] HC COMPLETE BLD COUNT 2021-06-17 11:16:00 [facility] W/AUTO DIFF ESTIMATED GFR 2021-06-17 11:16:00 [facility] POC GLUCOSE 2021-06-17 02:50:00 [facility] CONSULT TO OSTOMY CARE 2021-06-17 00:31:48 [facility] NURSE HC COMPLETE BLD COUNT 2021-06-16 23:31:00 [facility] W/AUTO DIFF BASIC METABOLIC PANEL 2021-06-16 23:31:00 [facility] ESTIMATED GFR 2021-06-16 23:31:00 [facility] POC GLUCOSE 2021-06-16 23:19:00 [facility] OR FL < 1 HOUR 2021-06-16 22:49:00 Mando Diaz [facility] ANAEROBIC CULTURE 2021-06-16 22:36:00 [facility] FUNGUS CULTURE 2021-06-16 22:36:00 Mando Diaz [facility] AEROBIC CULTURE 2021-06-16 22:36:00 Kaci Diazlicarlos alberto [facility] GR[facility]AIN 2021-06-16 22:36:00 [facility] UT AN ELECTIVE 2021-06-16 21:30:00 Jocelyne Zepeda [facility] SUPRAGLOTTIC AIRWAY AORTOGRAPHY, POSSIBLE 2021-06-16 21:17:00 [facility] POC , URINE 2021-06-16 20:46:00 [place] [facility] POTASSIUM LEVEL 2021-06-16 17:28:00 Isabell Dickerson [facility] Larry Romero POC GLUCOSE 2021-06-16 11:39:00 [facility] BASIC METABOLIC PANEL 2021-06-16 10:08:00 [facility] HC COMPLETE BLD COUNT 2021-06-16 10:08:00 [facility] W/AUTO DIFF PROTHROMBIN TIME WITH INR 2021-06-16 10:08:00 [facility] PARTIAL THROMBOPLASTIN 2021-06-16 10:08:00 [facility] TIME (PTT) TYPE AND SCREEN 2021-06-16 10:08:00 Char Viramontes [facility] ospital ESTIMATED GFR 2021-06-16 10:08:00 [facility] POC GLUCOSE 2021-06-16 01:59:00 [facility] POC GLUCOSE 2021-06-15 22:58:00 [facility] COVID-19 QUALITATIVE 2021-06-15 19:29:00 Char Viramontes [facility] RT-PCR POC GLUCOSE 2021-06-15 17:42:00 [facility] HEMODIALYSIS 2021-06-15 16:17:54 Delfino Akbar [facility] POC GLUCOSE 2021-06-15 15:41:00 [facility] POC GLUCOSE 2021-06-15 13:44:00 [facility] POC GLUCOSE 2021-06-15 13:00:00 [facility] ECG 12-LEAD 2021-06-15 12:48:21 Leni Barker Ho spital HC COMPLETE BLD COUNT 2021-06-15 11:42:00 [facility] W/AUTO DIFF BASIC METABOLIC PANEL 2021-06-15 11:42:00 [facility] ESTIMATED GFR 2021-06-15 11:42:00 [facility] POC GLUCOSE 2021-06-15 01:31:00 [facility] US DUPLEX ARTERIAL LOWER 2021-06-14 21:55:33 [facility] EXTREMITY RIGHT POC GLUCOSE 2021-06-14 21:51:00 [facility] POC GLUCOSE 2021-06-14 17:36:00 [facility] POC GLUCOSE 2021-06-14 13:30:00 [facility] POC GLUCOSE 2021-06-14 13:29:00 [facility] HC COMPLETE BLD COUNT 2021-06-14 10:13:00 [facility] W/AUTO DIFF BASIC METABOLIC PANEL 2021-06-14 10:13:00 [facility] ESTIMATED GFR 2021-06-14 10:13:00 [facility] POC GLUCOSE 2021-06-14 02:45:00 [facility] POC GLUCOSE 2021-06-13 21:47:00 [facility] POC GLUCOSE 2021-06-13 20:46:00 [facility] CBC WITH PLATELET AND 2021-06-13 16:10:00 [facility] DIFFERENTIAL COMPREHENSIVE METABOLIC 2021-06-13 16:10:00 [facility] PANEL ESTIMATED GFR 2021-06-13 16:10:00 [facility] HEMODIALYSIS 2021-06-13 15:26:35 [facility] POC GLUCOSE 2021-06-13 14:30:00 [facility] VANCOMYCIN LEVEL, RANDOM 2021-06-13 10:59:00 Juwan You [facility] POC GLUCOSE 2021-06-13 10:40:00 [facility] POC GLUCOSE 2021-06-13 02:28:00 [facility] POC GLUCOSE 2021-06-13 00:16:00 [facility] POC GLUCOSE 2021-06-12 23:31:00 [facility] POC GLUCOSE 2021-06-12 23:14:00 [facility] POC GLUCOSE 2021-06-12 18:19:00 [facility] POC GLUCOSE 2021-06-12 14:37:00 [facility] POC GLUCOSE 2021-06-12 14:01:00 [facility] POC GLUCOSE 2021-06-12 03:03:00 Nagel, Holden Whyte spital [facility] CT HEAD WO CONTRAST 2021-06-12 00:53:00 Robe [facility] P[facility]SE 2021-06-11 18:08:00 Robe Holden Whyte spital Ramírez POC GLUCOSE 2021-06-11 13:39:00 Nagel, Holden Whyte spital [place] HEMODIALYSIS 2021-06-11 12:38:[address] [facility] POC [facility]SE 2021-06-11 02:01:00 Nagel, Holdentrip Whyte spital Ramírez POC GLUCOSE 2021-06-10 22:15:00 Nagel, [facility] Confucianism spital Ramírez POC GLUCOSE 2021-06-10 17:39:00 Robe Holdentrip Whyte spital Ramírez POC GLUCOSE 2021-06-10 16:05:00 Holden Nagel spital Ramírez TISSUE CULTURE 2021-06-10 15:08:00 Juwan You spital GRAM STAIN 2021-06-10 15:08:00 Juwan You spital ANAEROBIC CULTURE 2021-06-10 15:04:00 Pat[facility] FUNGUS CULTURE 2021-06-10 15:04:00 Juwan You spital AEROBIC CULTURE 2021-06-10 15:04:00 Juwan You spital AFB CULTURE 2021-06-10 15:04:00 Juwan You spital GRAM STAIN 2021-06-10 15:04:00 Juwan You spital AFB STAIN 2021-06-10 15:04:00 Juwan You spital UT AN ELECTIVE 2021-06-10 14:26:00 Sofi Roach spital SUPRAGLOTTIC AIRWAY Marquita INCISION AND DRAINAGE, 2021-06-10 14:26:00 Juwan You [facility] LOWER EXTREMITY HC COMPLETE BLD COUNT 2021-06-10 10:20:00 Juwan You [facility] W/AUTO DIFF BASIC METABOLIC PANEL 2021-06-10 10:20:00 Pati, [facility] PROTHROMBIN TIME WITH INR 2021-06-10 10:20:00 [facility] PARTIAL THROMBOPLASTIN 2021-06-10 10:20:00 [facility] TIME (PTT) TYPE AND SCREEN 2021-06-10 10:20:00 Nagel, Holden Whyte Ho spital Ramírez ESTIMATED GFR 2021-06-10 10:20:00 Juwan You spital POC GLUCOSE 2021-06-10 03:11:00 Nagel, Holden Whyte Ho spital Ramírez POC GLUCOSE 2021-06-10 01:30:00 Nagel, Holden Ferrara spital Ram[place]rez POC GLUCOSE 2021-06-09 22:22:00 Nagel, Holden Whyte Ho spital Ram[place] POC GLUCOSE 2021-06-09 13:55:00 Nagel, Holden [facility]te [facility] HEMODIALYSIS 2021-06-09 13:20:01 [facility], RANDOM 2021-06-09 11:46:00 [facility] POC GLUCOSE 2021-06-09 02:06:00 Nagel, Holden Ferrara [facility] POC GLUCOSE 2021-06-08 22:23:00 Nagel, Holden Whyte [facility] POC GLUCOSE 2021-06-08 17:53:00 Nagel, Holden Isabell Ferrara [facility] HC COMPLETE BLD COUNT 2021-06-08 16:06:00 [facility] W/AUTO DIFF POC GLUCOSE 2021-06-08 13:56:00 Nagel, Holden Ferrara [facility] URINE CULTURE 2021-06-08 03:56:00 Holden Nagel spital [facility] URINALYSIS SCREEN AND 2021-06-08 03:32:00 [facility] MICROSCOPY, WITH REFLEX TO CULTURE POC GLUCOSE 2021-06-08 01:15:00 Nagel, Holden Ferrara [facility]ital [place] POC GLUCOSE 2021-06-07 22:07:00 NagelHolden Ho spital [place] POC GLUCOSE 2021-06-07 18:01:00 Holden Nagel Ho spital [place] BASIC METABOLIC PANEL 2021-06-07 14:15:00 [facility] ESTIMATED GFR 2021-06-07 14:15:00 Holden Nagel Ho spital [place] POC GLUCOSE 2021-06-07 13:56:00 Holden Nagel Ho [facility] [place] POC GLUCOSE 2021-06-07 02:54:00 Holden Nagel spital [place] CT LOWER EXTREMITY W 2021-06-07 01:22:59 [facility] CONTRAST RIGHT POC GLUCOSE 2021-06-06 23:50:00 Holden Nagel Ho spital [place] POC GLUCOSE 2021-06-06 17:31:00 Holden Nagel Ho [facility] [place] HEMODIALYSIS 2021-06-06 15:05:52 Delfino Akbar [facility] POC GLUCOSE 2021-06-06 14:03:00 Holden Nagel Ho [facility] [place] HC COMPLETE BLD COUNT 2021-06-06 10:31:00 [facility] W/AUTO DIFF BASIC METABOLIC PANEL 2021-06-06 10:31:00 [facility] ESTIMATED GFR 2021-06-06 10:31:00 Holden Nagel Ho [facility] [place] POC GLUCOSE 2021-06-06 10:14:00 Holden Nagel Ho [facility] [place] POC GLUCOSE 2021-06-06 06:26:00 Holden Nagel Ho [facility] [place] POC GLUCOSE 2021-06-06 02:41:00 Holden Nagel Ho [facility] [place] POC GLUCOSE 2021-06-05 19:51:00 Holden Nagel Ho [facility] [place] BASIC METABOLIC PANEL 2021-06-05 18:06:00 [facility] HC COMPLETE BLD COUNT 2021-06-05 18:06:00 [facility] W/AUTO DIFF ESTIMATED GFR 2021-06-05 18:06:00 [facility] [place] [facility]UCOSE 2021-06-05 17:48:00 Robe [facility] sp[facility] [place] ANAEROBIC CULTURE 2021-06-05 17:10:00 Pati, [facility] ANAEROBIC CULTURE 2021-06-05 16:59:00 Pati, [facility] FUNGUS CULTURE 2021-06-05 16:59:00 Pati, [facility] spital AEROBIC CULTURE 2021-06-05 16:59:00 Pati, [facility] spital AFB CULTURE 2021-06-05 16:59:00 Pati, [facility] spital FUNGUS SMEAR 2021-06-05 16:59:00 Pati, [facility] spital AFB STAIN 2021-06-05 16:59:00 Pati, [facility] spital UT AN ELECTIVE 2021-06-05 16:52:08 Herrera [facility] SUPRAGLOTTIC AIRWAY TISSUE CULTURE 2021-06-05 16:50:00 Pati, [facility] spital GRAM STAIN 2021-06-05 16:50:00 [facility] LOWER 2021-06-05 16:16:00 Pati [facility] EXTREMITY POC GLUCOSE 2021-06-05 13:32:00 Robe [facility] spital [place] TROPONIN T 2021-06-05 10:58:00 Char Viramontes [facility] ospital ABO AND RH CONFIRMATION BY 2021-06-05 10:54:00 Rachel Brasher [facility] PROTOCOL Vipin BASIC METABOLIC PANEL 2021-06-05 10:53:00 [facility] HC COMPLETE BLD COUNT 2021-06-05 10:53:00 [facility] W/AUTO DIFF ESTIMATED GFR 2021-06-05 10:53:[address] [facility] PROTHROMBIN TIME WITH INR 2021-06-05 10:52:00 [facility] PARTIAL THROMBOPLASTIN 2021-06-05 10:52:00 Char Viramontes [facility] TIME (PTT) HCG QUALITATIVE, SERUM 2021-06-05 10:52:00 Myron Fernandes [facility] SCREEN POC GLUCOSE 2021-06-05 09:40:00 Rachel Brasher Ho spital [place] BLOOD CULTURE, AEROBIC & 2021-06-05 08:27:00 Rachel Brasher [facility] ANAEROBIC Vipin POC GLUCOSE 2021-06-05 07:42:00 Rachel Brasher Ho spital [place] POC GLUCOSE 2021-06-05 06:57:00 Rachel Brasher Ho [facility] [place] POC GLUCOSE 2021-06-05 06:10:00 Holden Nagel Ho sp[facility] [place] BLOOD CULTURE, AEROBIC & 2021-06-05 04:31:00 Rachel Brasher [facility] ANAEROBIC Vipin POC GLUCOSE 2021-06-05 04:04:00 Rachel Brasher Ho sp[facility] [place] POC GLUCOSE 2021-06-05 03:51:00 Rachel Brasher Ho [facility] [place] TYPE AND SCREEN 2021-06-05 03:40:00 Rachel Brasher Ho [facility] [place] POC GLUCOSE 2021-06-05 03:05:00 Racehl Brasher Ho [facility] [place] POC GLUCOSE 2021-06-05 02:23:00 Rachel Brasher Ho sp[facility] [place] COVID-19 QUALITATIVE 2021-06-05 02:08:00 Sivan monge [facility] RT-PCR HC COMPLETE BLD COUNT 2021-06-05 01:24:[facility] W/AUTO DIFF PROTHROMBIN TIME WITH INR 2021-06-05 01:24:00 [facility] PARTIAL THROMBOPLASTIN 2021-06-05 01:24:00 hollySivan [facility] TIME (PTT) COMPREHENSIVE METABOLIC 2021-06-05 01:24:00 [facility] PANEL CREATINE KINASE, TOTAL 2021-06-05 01:24:00 Sivan Stewart [facility] (CPK) B NATRIURETIC PEPTIDE 2021-06-05 01:24:00 Sivan Stewart [facility] TROPONIN T 2021-06-05 01:24:00 Char Viramontes ospital ESTIMATED GFR 2021-06-05 01:24:00 Sivan Stewart [facility] ECG ED PRELIMINARY 2021-06-05 00:31:28 Sivan Stewart [facility] INTERPRETATION ECG 12-LEAD 2021-06-05 00:19:17 Rachel Brasher marilyn [facility] POC GLUCOSE 2021-05-25 18:04:00 Awe, [facility] POC GLUCOSE 2021-05-25 14:00:00 Awe, [facility] CBC HEMOGRAM 2021-05-25 10:12:00 [facility] BASIC METABOLIC PANEL 2021-05-25 10:12:00 Awe, [facility] ESTIMATED GFR 2021-05-25 10:12:00 [facility] POC GLUCOSE 2021-05-25 02:49:00 Awe, [facility] POC GLUCOSE 2021-05-24 23:33:00 [facility] 2021-05-24 17:56:00 [facility] 2021-05-24 13:59:00 Awe, [facility] CBC HEMOGRAM 2021-05-24 10:12:00 Awe, [facility] BASIC METABOLIC PANEL 2021-05-24 10:12:00 Awe, [facility] ESTIMATED GFR 2021-05-24 10:12:00 Awe, [facility] POC GLUCOSE 2021-05-24 09:59:00 [facility] POC GLUCOSE 2021-05-24 02:26:00 [facility] POC GLUCOSE 2021-05-24 00:03:00 Awe, [facility] TRANSFUSE RED BLOOD CELLS 2021-05-23 22:30:00 [facility] TRANSFUSE RED BLOOD CELLS 2021-05-23 21:30:00 [facility] POC GLUCOSE 2021-05-23 19:03:00 Awe, [facility] TYPE AND SCREEN 2021-05-23 14:38:00 [facility] HC COMPLETE BLD COUNT 2021-05-23 14:38:00 [facility] W/AUTO DIFF PREPARE RBC 2021-05-23 14:38:00 [facility] ospital PREPARE PLATELET PHERESIS 2021-05-23 14:38:00 [facility] POC GLUCOSE 2021-05-23 14:35:00 Awe, [facility] HEMODIALYSIS 2021-05-23 13:42:30 [facility] CBC HEMOGRAM 2021-05-23 12:31:00 Awe, [facility] BASIC METABOLIC PANEL 2021-05-23 12:31:00 Awe, [facility] ESTIMATED GFR 2021-05-23 12:31:00 Awe, [facility] POC GLUCOSE 2021-05-23 11:22:00 Awe, [facility] POC GLUCOSE 2021-05-23 03:30:00 Awe, [facility] POC GLUCOSE 2021-05-22 23:20:00 Awe, [facility] POC GLUCOSE 2021-05-22 17:20:00 Awe, [facility] POC GLUCOSE 2021-05-22 13:27:00 [facility] BASIC METABOLIC PANEL 2021-05-22 12:31:00 [facility] MAGNESI[facility] LEVEL 2021-05-22 12:31:00 Nikki Haynes ospital [place] CBC HEMOGRAM 2021-05-22 12:31:00 Nikki Haynes ospital [place] ESTIMATED GFR 2021-05-22 12:31:00 Nikki Haynes [facility] ospital Rahel POC GLUCOSE 2021-05-22 10:54:00 Awe, [facility] POC GLUCOSE 2021-05-22 07:28:00 Awe, [facility] POC GLUCOSE 2021-05-22 01:11:00 Awe, [facility] HEPATITIS B SURFACE 2021-05-21 21:08:00 [facility] ANTIBODY HEMODIALYSIS 2021-05-21 20:57:40 [facility] POC GLUCOSE 2021-05-21 17:57:00 Awe, [facility] POC GLUCOSE 2021-05-21 13:55:00 Awe, [facility] POC GLUCOSE 2021-05-21 10:41:00 Tom Barber ZZCOVID-19 ANTI-SPIKE IGG 2021-05-21 07:43:00 Clyde Olmstead [facility] ANTIBODY TITER Esa BASIC METABOLIC PANEL 2021-05-21 07:43[facility] MAGNESI[facility] LEVEL 2021-05-21 07:43:00 Nikki Haynes ospital [place] CBC HEMOGRAM 2021-05-21 07:43:00 Nikki Haynes ospital [place] ZZCOVID-19 SEROLOGY 2021-05-21 07:43:00 [facility] Esa ESTIMATED GFR 2021-05-21 07:43:00 Andre Sofia spital [place] LACTIC ACID LEVEL 2021-05-21 07:43:00 Leodan Stevenson [facility] POC GLUCOSE 2021-05-21 06:35:00 Tom Barber spital HC COMPLETE BLD COUNT 2021-05-21 02:49:00 [facility] W/AUTO DIFF BASIC METABOLIC PANEL 2021-05-21 02:49:00 [facility] LACTIC ACID LEVEL 2021-05-21 02:49:00 [facility] OSMOLALITY, SERUM 2021-05-21 02:49:00 [facility] BETA HYDROXYBUTYRATE 2021-05-21 02:49:00 [facility] PROCALCITONIN 2021-05-21 02:49:00 [facility] ESTIMATED GFR 2021-05-21 02:49:00 [facility] POC GLUCOSE 2021-05-21 02:34:00 Tom Barber spital HC COMPLETE BLD COUNT 2021-05-21 00:28:00 Char Viramontes [facility] W/AUTO DIFF POC GLUCOSE 2021-05-20 23:57:00 Tom Barber spital BASIC METABOLIC PANEL 2021-05-20 23:20:00 Andre Sofia [facility] [place] LACTIC ACID LEVEL 2021-05-20 23:20:00 Andre Sofia [facility] [place] ESTIMATED GFR 2021-05-20 [...] TRANSFUSE RED BLOOD CELLS 2021-05-20 17:21:00 Kimberlyn [facility] [place] TRANSFUSE PLATELET 2021-05-20 15:52:00 [facility] PHERESIS BASIC METABOLIC PANEL 2021-05-20 15:25:00 [facility] [place] ESTIMATED GFR 2021-05-20 15:25:00 Andre Sofia spital [place] POC GLUCOSE 2021-05-20 14:48:00 Tom Barber Ho spital HEMODIALYSIS 2021-05-20 11:31:20 [facility] POC GLUCOSE 2021-05-20 10:44:00 Tom Barber spital HEPATITIS B SURFACE 2021-05-20 08:49:00 [facility] ANTIGEN HEPATITIS B SURFACE AB, 2021-05-20 08:49:00 [facility] QUANTITATIVE HC COMPLETE BLD COUNT 2021-05-20 08:25:00 [facility] W/AUTO DIFF BASIC METABOLIC PANEL 2021-05-20 08:25:00 [facility] MAGNESIUM LEVEL 2021-05-20 08:25:00 [facility] ospital PHOSPHORUS LEVEL 2021-05-20 08:25:00 [facility] PROTHROMBIN TIME WITH INR 2021-05-20 08:25:00 Leodan Stevenson [facility] ESTIMATED GFR 2021-05-20 08:25:00 Juwan You spital HEMOGLOBIN A1C 2021-05-20 08:25:00 Nikki Haynes ospital [place] POC GLUCOSE 2021-05-20 06:34:00 Tom Barber spital ARTERIAL BLOOD GAS 2021-05-20 04:36:00 [facility] 12-LEAD 2021-05-20 03:42:28 Graham [facility] Ho spital PROTHROMBIN TIME WITH INR 2021-05-20 02:54:00 [facility] 2021-05-20 02:54:00 Graham[facility]ly [facility] W/AUTO DIFF BASIC METABOLIC PANEL 2021-05-20 02:54:00 GrahamFormerly [facility] LACTIC ACID LEVEL 2021-05-20 02:54:00 [facility] VENOUS BLOOD GAS 2021-05-20 02:54:00 Graham [facility] ospital ESTIMATED GFR 2021-05-20 02:54:00 Graham [facility] spital POC GLUCOSE 2021-05-20 02:54:00 Tom Barber spital XR CHEST 1 VW PORTABLE 2021-05-20 02:51:13 [facility] [place] [facility] 1 HOUR 2021-05-20 01:30:15 Juwan You spital TRANSFUSE RED BLOOD CELLS 2021-05-20 00:59:00 Juwan You [facility] [place] AN ELECTIVE 2021-05-20 00:53:01 Sukhjinder Medina spital SUPRAGLOTTIC AIRWAY [place] INCISION AND DRAINAGE, 2021-05-20 00:45:00 Juwan You [facility] HEMATOMA HC COMPLETE BLD COUNT 2021-05-19 22:13:00 [facility] W/AUTO DIFF BASIC METABOLIC PANEL 2021-05-19 22:13:00 [facility] PROTHROMBIN TIME WITH INR 2021-05-19 22:13:00 [facility] PARTIAL THROMBOPLASTIN 2021-05-19 22:13:00 [facility] ([facility]TT[facility] MAGNESIUM LEVEL 2021-05-19 22:13:00 Char [facility]amontesist H ospital ESTIMATED GFR 2021-05-19 22:13:00 Juwan You spital POC GLUCOSE 2021-05-19 22:00:00 Errol Luther [facility] SURGICAL PATHOLOGY REQUEST 2021-05-19 21:47:00 Errol Luther [facility] POC GLUCOSE 2021-05-19 21:17:00 Juwan You spital ACTIVATED CLOTTING TIME 2021-05-19 19:12:00 BarberTom [facility] UT AN ELECTIVE 2021-05-19 18:11:04 Sukhjinder Medina spital SUPRAGLOTTIC AIRWAY [place] LOWER EXTREMITY 2021-05-19 17:59:00 Juwan You spital ANGIOGRAM,POSSIBLE ANGIOPLASTY,POSSIBLE STENT XR CHEST 1 VW PORTABLE 2021-05-19 15:47:37 [facility]FR 2021-05-19 14:34:00 Juwan You spital POC PANEL 2021-05-19 14:34:00 Juwan You spital TYPE AND SCREEN 2021-05-19 14:05:00 Isabell Dickerson spital Larry Romero PREPARE RBC 2021-05-19 14:05:00 Char Viramontes ospital PREPARE FRESH FROZEN 2021-05-19 14:05:00 Char Viramontes [facility] PLASMA PREPARE PLATELET PHERESIS 2021-05-19 14:05:00 Char Viramontes [facility] BASIC METABOLIC PANEL 2021-05-19 14:00:00 Jayla [facility] Larry Romero PROTHROMBIN TIME WITH INR 2021-05-19 14:00:00 Jayla [facility] Larry Romero HC COMPLETE BLD COUNT 2021-05-19 14:00:00 Jayla [facility] W/AUTO DIFF Larry Romero ABO AND RH CONFIRMATION BY 2021-05-19 14:00:00 Juwan You [facility] PROTOCOL ESTIMATED GFR 2021-05-19 14:00:00 Isabell Dickerson COVID-19 QUALITATIVE 2021-05-19 12:40:00 Juwan You [facility] RT-PCR MEDICAL RELEASE/CLEARANCE 2021-05-13 06:01:00 Doctor Unassigned, [facility] US DUPLEX ARTERIAL LOWER 2021-05-12 15:21:31 Juwan You [facility] EXTREMITY BILATERAL Emergency department visit 2013-04-15 05:00:00 [...] procedure) Therapeutic, prophylactic, 2013-04-15 05:00:00 [facility] or diagnostic injection (specify substance or drug); intravenous push, single or initial substance/drug [facility] EGD [facility] (esophagogastroduodenoscop y) gastric outlet reduction [facility] Tubal ligation [facility] 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 Plan of Care Planned Activity Planned Date Details Comments Source Future Scheduled 2022-06-11 HEPATITIS B VACCINES [facility] Test 02:09:30 (1 of 3 - 3-dose series) [code = HEPATITIS B VACCINES (1 of 3 - 3-dose series)] Future Scheduled 2022-06-11 COVID-19 VACCINE (#1) [facility] Test 02:09:30 [code = COVID-19 VACCINE (#1)] Future Scheduled 2022-06-11 Pneumococcal Vaccine: [facility] Test 02:09:30 Pediatrics (0 to 5 Years) and At-Risk Patients (6 to 64 Years) (1 - PCV) [code = Pneumococcal Vaccine: Pediatrics (0 to 5 Years) and At-Risk Patients (6 to 64 Years) (1 - PCV)] Future Scheduled 2022-06-11 Hepatitis C screening [facility] Test 02:09:30 (procedure) [code = 610507671] Future Scheduled 2022-06-11 [facility] Test 02:09:30 malignant neoplasm of cervix (procedure) [code = 676082658] Future Scheduled 2022-06-11 INFLUENZA VACCINE [facility] Test 02:09:30 [code = INFLUENZA VACCINE] Future Scheduled 2022-06-11 Hepatitis C screening [facility] Test 02:09:30 (procedure) [code = [id number]] Future Scheduled 2022-06-11 Screening for [facility] Test 02:09:30 malignant neoplasm of cervix (procedure) [code = 279169582] Future Scheduled 2022-06-11 INFLUENZA VACCINE [facility] Test 02:09:30 [code = INFLUENZA VACCINE] Future Scheduled 2022-06-11 HEPATITIS B VACCINES [facility] Test 02:09:30 (1 of 3 - 3-dose series) [code = HEPATITIS B VACCINES (1 of 3 - 3-dose series)] Future Scheduled 2022-06-11 COVID-19 VACCINE (#1) [facility] Test 02:09:30 [code = COVID-19 VACCINE (#1)] Future Scheduled 2022-06-11 Pneumococcal Vaccine: [facility] Test 02:09:30 Pediatrics (0 to 5 Years) and At-Risk Patients (6 to 64 Years) (1 - PCV) [code = Pneumococcal Vaccine: Pediatrics (0 to 5 Years) and At-Risk Patients (6 to 64 Years) (1 - PCV)] Future Scheduled 2022-06-01 HEPATITIS B VACCINES [facility] Test 16:17:59 (1 of 3 - 3-dose series) [code = HEPATITIS B VACCINES (1 of 3 - 3-dose series)] Future Scheduled 2022-06-01 COVID-19 VACCINE (#1) [facility] Test 16:17:59 [code = COVID-19 VACCINE (#1)] Future Scheduled 2022-06-01 Pneumococcal Vaccine: [facility] Test 16:17:59 Pediatrics (0 to 5 Years) and At-Risk Patients (6 to 64 Years) (1 - PCV) [code = Pneumococcal Vaccine: Pediatrics (0 to 5 Years) and At-Risk Patients (6 to 64 Years) (1 - PCV)] Future Scheduled 2022-06-01 Hepatitis C screening [facility] Test 16:17:59 (procedure) [code = [id number]] Future Scheduled 2022-06-01 [facility] Test 16:17:59 malignant neoplasm of cervix (procedure) [code = [id number]] Future Scheduled 2022-06-01 INFLUENZA VACCINE [facility] Test 16:17:59 [code = INFLUENZA VACCINE] Future Scheduled 2022-04-25 HEPATITIS B VACCINES [facility] Test 12:43:16 (1 of 3 - 3-dose series) [code = HEPATITIS B VACCINES (1 of 3 - 3-dose series)] Future Scheduled 2022-04-25 COVID-19 VACCINE (#1) [facility] Hospital Test 12:43:16 [code = COVID-19 VACCINE (#1)] Future Scheduled 2022-04-25 Pneumococcal Vaccine: [facility] Test 12:43:16 Pediatrics (0 to 5 Years) and At-Risk Patients (6 to 64 Years) (1 - PCV) [code = Pneumococcal Vaccine: Pediatrics (0 to 5 Years) and At-Risk Patients (6 to 64 Years) (1 - PCV)] Future Scheduled 2022-04-25 Hepatitis C screening [facility] Test 12:43:16 (procedure) [code = [id number]] Future Scheduled 2022-04-25 [facility] Test 12:43:16 malignant neoplasm of cervix (procedure) [code = [id number]] Future Scheduled 2022-04-25 INFLUENZA VACCINE [facility] Test 12:43:16 [code = INFLUENZA VACCINE] Future Scheduled 2022-02-27 HEPATITIS B VACCINES [facility] Test 05:24:42 (1 of 3 - 3-dose series) [code = HEPATITIS B VACCINES (1 of 3 - 3-dose series)] Future Scheduled 2022-02-27 COVID-19 VACCINE (#1) [facility] Test 05:24:42 [code = COVID-19 VACCINE (#1)] Future Scheduled 2022-02-27 Pneumococcal Vaccine: [facility] Test 05:24:42 Pediatrics (0 to 5 Years) and At-Risk Patients (6 to 64 Years) (1 - PCV) [code = Pneumococcal Vaccine: Pediatrics (0 to 5 Years) and At-Risk Patients (6 to 64 Years) (1 - PCV)] Future Scheduled 2022-02-27 Hepatitis C screening [facility] Test 05:24:42 (procedure) [code = [id number]] Future Scheduled 2022-02-27 Screening for [facility] Test 05:24:42 malignant neoplasm of cervix (procedure) [code = 696916801] Future Scheduled 2022-02-27 INFLUENZA VACCINE [facility] Test 05:24:42 [code = INFLUENZA VACCINE] Future Scheduled 2022-02-27 HEPATITIS B VACCINES [facility] Test 05:24:42 (1 of 3 - 3-dose series) [code = HEPATITIS B VACCINES (1 of 3 - 3-dose series)] Future Scheduled 2022-02-27 COVID-19 VACCINE (#1) [facility] Test 05:24:42 [code = COVID-19 VACCINE (#1)] Future Scheduled 2022-02-27 Pneumococcal Vaccine: [facility] Test 05:24:42 Pediatrics (0 to 5 Years) and At-Risk Patients (6 to 64 Years) (1 - PCV) [code = Pneumococcal Vaccine: Pediatrics (0 to 5 Years) and At-Risk Patients (6 to 64 Years) (1 - PCV)] Future Scheduled 2022-02-27 Hepatitis C screening [facility] Test 05:24:42 (procedure) [code = [id number]] Future Scheduled 2022-02-27 Screening for [facility] Test 05:24:42 malignant neoplasm of cervix (procedure) [code = 153986417] Future Scheduled 2022-02-27 INFLUENZA VACCINE [facility] Test 05:24:42 [code = INFLUENZA VACCINE] Future Scheduled 2022-02-27 HEPATITIS B VACCINES [facility] Test 05:24:42 (1 of 3 - 3-dose series) [code = HEPATITIS B VACCINES (1 of 3 - 3-dose series)] Future Scheduled 2022-02-27 COVID-[facility] (#[facility] 05:24:42 [code = COVID-19 VACCINE (#1)] Future Scheduled 2022-02-27 Pneumococcal Vaccine: [facility] Test 05:24:42 Pediatrics (0 to 5 Years) and At-Risk Patients (6 to 64 Years) (1 - PCV) [code = Pneumococcal Vaccine: Pediatrics (0 to 5 Years) and At-Risk Patients (6 to 64 Years) (1 - PCV)] Future Scheduled 2022-02-27 Hepatitis C screening [facility] Test 05:24:42 (procedure) [code = [id number]] Future Scheduled 2022-02-27 [facility] Test 05:24:42 malignant neoplasm of cervix (procedure) [code = [id number]] Future Scheduled 2022-02-27 INFLUENZA VACCINE [facility] Test 05:24:42 [code = INFLUENZA VACCINE] Future Scheduled 2022-02-27 HEPATITIS B VACCINES [facility] Test 05:24:42 (1 of 3 - 3-dose series) [code = HEPATITIS B VACCINES (1 of 3 - 3-dose series)] Future Scheduled 2022-02-27 COVID-19 VACCINE (#1) [facility] Test 05:24:42 [code = COVID-19 VACCINE (#1)] Future Scheduled 2022-02-27 Pneumococcal Vaccine: [facility] Test 05:24:42 Pediatrics (0 to 5 Years) and At-Risk Patients (6 to 64 Years) (1 - PCV) [code = Pneumococcal Vaccine: Pediatrics (0 to 5 Years) and At-Risk Patients (6 to 64 Years) (1 - PCV)] Future Scheduled 2022-02-27 Hepatitis C screening [facility] Test 05:24:42 (procedure) [code = [id number]] Future Scheduled 2022-02-27 [facility] Test 05:24:42 malignant neoplasm of cervix (procedure) [code = 268610732] Future Scheduled 2022-02-27 INFLUENZA VACCINE [facility] Test 05:24:42 [code = INFLUENZA VACCINE] Future Scheduled 2022-02-27 HEPATITIS B VACCINES [facility] Test 05:24:42 (1 of 3 - 3-dose series) [code = HEPATITIS B VACCINES (1 of 3 - 3-dose series)] Future Scheduled 2022-02-27 COVID-19 VACCINE (#1) [facility] Test 05:24:42 [code = COVID-19 VACCINE (#1)] Future Scheduled 2022-02-27 Pneumococcal Vaccine: [facility] Test 05:24:42 Pediatrics (0 to 5 Years) and At-Risk Patients (6 to 64 Years) (1 - PCV) [code = Pneumococcal Vaccine: Pediatrics (0 to 5 Years) and At-Risk Patients (6 to 64 Years) (1 - PCV)] Future Scheduled 2022-02-27 Hepatitis C screening [facility] Test 05:24:42 (procedure) [code = 306158467] Future Scheduled 2022-02-27 [facility] 05:24:42 malignant neoplasm of cervix (procedure) [code = 830295032] Future Scheduled 2022-02-27 INFLUENZA VACCINE [facility] Test 05:24:42 [code = INFLUENZA VACCINE] Future Scheduled 2022-02-27 HEPATITIS B VACCINES Met [facility] Test 05:24:42 (1 of 3 - 3-dose series) [code = HEPATITIS B VACCINES (1 of 3 - 3-dose series)] Future Scheduled 2022-02-27 COVID-19 VACCINE (#1) [facility] Test 05:24:42 [code = COVID-19 VACCINE (#1)] Future Scheduled 2022-02-27 Pneumococcal Vaccine: [facility] Test 05:24:42 Pediatrics (0 to 5 Years) and At-Risk Patients (6 to 64 Years) (1 - PCV) [code = Pneumococcal Vaccine: Pediatrics (0 to 5 Years) and At-Risk Patients (6 to 64 Years) (1 - PCV)] Future Scheduled 2022-02-27 Hepatitis C screening [facility] Test 05:24:42 (procedure) [code = 913086150] Future Scheduled 2022-02-27 [facility] 05:24:42 malignant neoplasm of cervix (procedure) [code = 730516168] Future Scheduled 2022-02-27 INFLUENZA VACCINE [facility] Test 05:24:42 [code = INFLUENZA VACCINE] Future Scheduled 2022-02-27 HEPATITIS B VACCINES Met [facility] Test 05:24:42 (1 of 3 - 3-dose series) [code = HEPATITIS B VACCINES (1 of 3 - 3-dose series)] Future Scheduled 2022-02-27 COVID-19 VACCINE (#1) [facility] Test 05:24:42 [code = COVID-19 VACCINE (#1)] Future Scheduled 2022-02-27 Pneumococcal Vaccine: [facility] Test 05:24:42 Pediatrics (0 to 5 Years) and At-Risk Patients (6 to 64 Years) (1 - PCV) [code = Pneumococcal Vaccine: Pediatrics (0 to 5 Years) and At-Risk Patients (6 to 64 Years) (1 - PCV)] Future Scheduled 2022-02-27 Hepatitis C screening [facility] Test 05:24:42 (procedure) [code = 359864781] Future Scheduled 2022-02-27 [facility] Test 05:24:42 malignant neoplasm of cervix (procedure) [code = 565042939] Future Scheduled 2022-02-27 INFLUENZA VACCINE [facility] Test 05:24:42 [code = INFLUENZA VACCINE] Future Scheduled 2022-02-27 HEPATITIS B VACCINES Met [facility] Test 05:24:42 (1 of 3 - 3-dose series) [code = HEPATITIS B VACCINES (1 of 3 - 3-dose series)] Future Scheduled 2022-02-27 COVID-19 VACCINE (#1) [facility] Test 05:24:42 [code = COVID-19 VACCINE (#1)] Future Scheduled 2022-02-27 Pneumococcal Vaccine: [facility] Test 05:24:42 Pediatrics (0 to 5 Years) and At-Risk Patients (6 to 64 Years) (1 - PCV) [code = Pneumococcal Vaccine: Pediatrics (0 to 5 Years) and At-Risk Patients (6 to 64 Years) (1 - PCV)] Future Scheduled 2022-02-27 Hepatitis C screening [facility] Test 05:24:42 (procedure) [code = 770998032] Future Scheduled 2022-02-27 [facility] Test 05:24:42 malignant neoplasm of cervix (procedure) [code = 345154964] Future Scheduled 2022-02-27 INFLUENZA VACCINE [facility] Test 05:24:42 [code = INFLUENZA VACCINE] Future Scheduled 2021-07-22 COVID-19 VACCINE (1) Met [facility] Test 13:11:04 [code = COVID-19 VACCINE (1)] Future Scheduled 2021-07-22 Hepatitis C screening [facility] Test 13:11:04 (procedure) [code = 680564911] Future Scheduled 2021-07-22 [facility] Test 13:11:04 malignant neoplasm of cervix (procedure) [code = 342584923] Future Scheduled 2021-07-22 INFLUENZA VACCINE [facility] Test 13:11:04 [code = INFLUENZA VACCINE] Encounters Start End Encounter Admission Attending Care Care Encounter Source Date/Time Date/Time Type Type Clinicians Facility Department ID 2022-04-29 Outpatient [facility] [id number] [place] 09:02:27 [id number] [facility] 2022-04-28 Outpatient [facility] [id number] [place] 12:17:07 [id number] [facility] 2021-12-29 Outpatient [facility] [id number] [place] 11:56:31 [id number] [facility] 2021-12-19 Outpatient [facility] [id number] [place] 14:05:12 [id number] [facility] 2021-12-12 Outpatient [facility] [id number] [place] 12:11:07 [id number] [facility] 2021-12-05 Outpatient [facility] [id number] [place] 20:09:51 [id number] [facility] 2021-10-28 Outpatient [facility] [id number] [place] 17:04:22 [id number] [facility] 2021-07-22 Outpatient nullFlavo [facility] [id number] Memoria 00:10:30 r Medical 05 l [facility] 2021-07-22 Preadmit nullFlavo [id number] Memoria 00:10:30 r [facility] 68 l [place] 2021-07-22 Outpatient nullFlavo [facility] [id number] Memoria 00:10:30 r Medical 06 l [facility] 2021-04-22 Emergency [facility] [id number] Univers 02:13:03 ity [facility] 2021-04-18 Emergency [facility] [id number] [facility]-17 Emergency [facility] [id number] Univers 17:46:08 [facility] 2022-04-09 2022-04-09 Outpatient Nodal_J DMG DREWG [id number] 022 [facility] 00:00:00 00:00:00 1020 Medica l Group 2022-01-02 2022-01-02 [place]azo_[place] [id number] -2021 [facility] 03:37:00 03:37:00 0715 Medica l Group 2021-12-15 2021-12-15 Outpatient [facility], [facility] [id number] [place] 08:00:00 08:00:00 [facility] 2021-12-02 2021-12-02 Travel 1.2.840.1 1.2.953.338 [id number] [id number] Methodi 00:00:00 00:00:[address] 3.430.2.7 0.2.7.3.698 Ho spita .3.957447 084.8 l .8 2021-12-02 2021-12-02 Travel 1.2.840.1 1.2.697.516 3926 998653 Methodi 00:00:00 00:00:[address] 3.430.2.7 0.2.7.3.698 Ho spita .3.791872 084.8 l .8 2021-11-13 2021-11-13 Transcribe [place], 1.2.840.1 [id number] 21 [id number] Methodi 00:00:00 00:00:00 Orders Jose Miguel G. 90014.1.[address] 3.430.2.7 Hospit a .3.563437 l .8 2021-11-13 2021-11-13 Transcribe [place], 1.2.840.1 [id number] 21 [id number] Methodi 00:00:00 00:00:00 Orders Jose Miguel G. 94689.1.[address] 3.430.2.7 Hospit a .3.133535 l .8 2021-11-05 2021-11-05 Outpatient Deshazo_T DMG DMG [id number] -2021 Devoted 12:00:00 12:00:00 0518 Medica l Group 2021-10-29 2021[facility]10-29 [facility] 1.[facility].840.1 [id number] Methodi 00:00:00 00:00:[address] Mohamed 3.430.2.7 Hospit a .3.668730 l .8 2021-10-29 2021-10-29 Telephone Rosy, 1.2.840.1 [id number] 342 [id number] Methodi 00:00:00 00:00:[address] Mohamed 3.430.2.7 Hospit a .3.400030 l .8 2021-08-20 2021-08-20 Outpatient Des[facility]azo_T [facility] [id number] -2021 [facility] 12:30:00 12:30:00 0302 Medica l Group 2021-07-08 2021-07-08 Office Seth, 1.2.840.1 [id number] 0116 Methodi 13:00:00 14:25:36 Visit Bessie 01761.1.[address] [place] 3.430.2.7 Hosp jo-ann .3.802815 l .8 2021-07-08 2021-07-08 Office Seth, 1.2.840.1 [id number] 6841 Methodi 13:00:00 14:25:36 Visit Bessie 30431.1.[address] [place] 3.430.2.7 Hosp jo-ann .3.033191 l .8 2021-07-08 2021-07-08 Telephone Anthony, 1.2.840.1 [id number] 2099 [id number] Methodi 00:00:00 00:00:[address] 3.430.2.7 Hospit a .3.828282 l .8 2021-07-08 2021-07-08 Travel 1.2.840.1 1.2.643.709 1618 223172 Methodi 00:00:00 00:00:[address] 3.430.2.7 0.2.7.3.698 Ho spita .3.329497 084.8 l .8 2021-07-08 2021-07-08 Telephone Anthony, 1.2.840.1 [id number] 2099 [id number] Methodi 00:00:00 00:00:[address] 3.430.2.7 Hospit a .3.764719 l .8 2021-07-08 2021-07-08 Travel 1.2.840.1 1.2.296.747 8325 260526 Methodi 00:00:00 00:00:[address] 3.430.2.7 0.2.7.3.698 Ho spita .3.978816 084.8 l .8 2021-07-03 2021-07-03 CAV Melany 2.16.840. 2.16.840.1. CLAC [id number] [facility]oted 19:00:00 20:00:00 Vladimir 1.551063. 160385.4.6. 467 [facility] 4.6.03216 [id number] 2021-07-03 2021-07-03 Telephone Seth, 1.2.840.1 [id number] 2099 [id number] Methodi 00:00:00 00:00:[address] [place] 3.430.2.7 Hosp jo-ann .3.781569 l .8 2021-07-03 2021-07-03 Telephone Seth, 1.2.840.1 [id number] 2099 [id number] Methodi 00:00:00 00:00:[address] [place] 3.430.2.7 Hosp jo-ann .3.715237 l .8 2021-06-24 2021-06-24 Outpatient Deshazo_T DM DMG 41127 -2021 Devoted 05:31:00 05:31:00 0104 Medica l Group 2021-06-23 2021-06-23 Telephone Anthony, 1.2.840.1 [id number] 2099 [id number] Methodi 00:00:00 00:00:[address] 3.430.2.7 Hospit a .3.058214 l .8 2021-06-23 2021-06-23 Telephone Anthony, 1.2.840.1 [id number] 2100 053146 Methodi 00:00:00 00:00:[address] 3.430.2.7 Hospit a .3.321084 l .8 2021-06-04 2021-06-18 [facility] 1.2.840.1 1041 08469 [id number] Methodi 18:20:00 18:13:00 Encounter Isra Rachel Lew 47256.1.[address] [facility] 3.430[facility]7 [facility], Shanda Kalen .3.510262 l [facility] Omad .8 2021-06-04 2021-06-18 [facility] 1.2.840.1 1041 67899 [id number] Methodi 18:20:00 18:13:00 Encounter Gregorio Brasherlisa Lew 49454.1.[address] [facility] 3.430.2.7 H[facility]ita [facility], [facility] Kalen .3.431103 l [facility], Omad .8 2021-06-16 2021-06-16 Anesthesia Yousif, 1.2.840.1 [id number] Methodi 23:59:59 23:59:59 Event Alesia Coelho 38368.1.[address] 3.430.2.7 Hospit a .3.619096 l .8 2021-06-16 2021-06-16 Surgery Joe, 1.2.840.1 [id number] 8172 Methodi 13:30:00 17:45:[address] [facility] 3.430.2.7 Hosp jo-ann .3.063279 l .8 2021-06-16 2021-06-16 Surgery Joe, 1.2.840.1 [id number] 194542 2801 Methodi 13:30:00 17:45:[address] [facility] 3.430.2.7 Hosp jo-ann .3.718488 l .8 2021-06-16 2021-06-16 Anesthesia Jose Carlos, 1.2.840.1 [id number] 033 [id number] Methodi 15:19:00 17:19:00 Event Veto 21013.1.1 309 s t V. 3.430.2.7 Hospit a .3.758208 l .8 2021-06-16 2021-06-16 Anesthesia Jose Carlos, 1.2.840.1 [id number] 350 [id number] Methodi 15:19:00 17:19:00 Event Veto 32921.1.1 309 s t V. 3.430.2.7 Hospit a .3.199968 l .8 2021-06-10 2021-06-10 Surgery Juwan You 1.2.840.1 [id number] 28234 50768 Methodi 08:00:00 10:30:[address] 3.430.2.7 Hospit a .3.021984 l .8 2021-06-10 2021-06-10 Anesthesia Doc, 1.2.840.1 [id number] 442 [id number] Methodi 08:26:00 09:40:00 Event Sofi 92746.1.[address] Marquita 3.430.2.7 Hosp jo-ann .3.146136 l .8 2021-06-09 2021-06-09 Prep for Robert, 1.2.840.1 [id number] 203 [id number] Methodi 00:00:00 00:00:00 Surgery Gayle 17245.1.[address] 3.430.2.7 Hospit a .3.614165 l .8 2021-06-09 2021-06-09 Prep for Robert, 1.2.840.1 [id number] 467 [id number] Methodi 00:00:00 00:00:00 Surgery Gayle 54762.1.[address] 3.430.2.7 Hospit a .3.956910 l .8 2021-06-05 2021-06-05 Anesthesia AilynvalerieFrankie bills 1.2.840.1 [id number] Methodi 10:16:00 11:41:00 Event Chandler Silverman 64311.1.[address] 3.430.2.7 Hospit a .3.444034 l .8 2021-06-05 2021-06-05 Surgery Juwan You 1.2.840.1 [id number] 23055 12220 Methodi 09:30:00 11:05:[address] 3.430.2.7 Hospit a .3.426218 l .8 2021-06-03 2021-06-03 Prep for Anthony, 1.2.840.1 [id number] 68164 53066 Methodi 00:00:00 00:00:00 Surgery Forrest 63533.1.[address] 3.430.2.7 Hospit a .3.646647 l .8 2021-06-03 2021-06-03 Telephone Adelita, 1.2.840.1 [id number] 724 [id number] Methodi 00:00:00 00:00:00 Crysandria 35052.1.1 218 s t 3.430.2.7 Hospit a .3.060892 l .8 2021-05-28 2021-05-28 Outpatient Adams_R [facility] DMG [id number] 021 [facility] 05:00:00 05:00:00 1208 Medica l Group 2021-05-27 2021-05-27 Patient Tam, 1.2.840.1 [id number] Methodi 00:00:00 00:00:00 Outreach Maria M 52906.1.[address] 3.430.2.7 Hospit a .3.708544 l .8 2021-05-27 2021-05-27 Travel 1.2.840.1 1.2.328.708 8095 116059 Methodi 00:00:00 00:00:[address] 3.430.2.7 0.2.7.3.698 Ho spita .3.032959 084.8 l .8 2021-05-27 2021-05-27 Orders Boles, 1.2.840.1 [id number] 2099 [id number] Methodi 00:00:00 00:00:00 Only Anila 36949.1.[address] 3.430.2.7 Hospit a .3.797946 l .8 2021-05-26 2021-05-26 Outpatient Adams_R [facility] 88756-7 021 Devoted 03:30:00 03:30:00 1206 Medica l Group 2021-05-26 2021-05-26 Telephone Anthony, 1.2.840.1 [id number] 2099 [id number] Methodi 00:00:00 00:00:[address] 3.430.2.7 Hospit a .3.048613 l .8 2021-05-19 2021-05-25 Hospital Juwan You 1.2.840.1 [id number] 2099 [id number] Methodi 06:00:00 15:59:00 Encounter Tom Barber 46569.1.[address] August, Marilu Sheridan 3.430.2.7 Hospita .3.903149 l .8 2021-05-21 2021-05-21 Outpatient [facility] 29158-1 021 Devoted 03:30:00 03:30:00 1201 Medica l Group 2021-05-19 2021-05-19 Anesthesia Adam, 1.2.840.1 [id number] Methodi 18:45:00 20:31:00 Event Sukhjinder 34406.1.[address] Kendall 3.430.2.7 Hospit a .3.797108 l .8 2021-05-19 2021-05-19 Surgery Juwan You 1.2.840.1 [id number] 00394 13362 Methodi 18:50:00 19:55:[address] 3.430.2.7 Hospit a .3.368351 l .8 2021-05-192021-05-19 Anesthesia AdamSukhjinder Kendall 1.2.840.1 [id number] Methodi 12:00:00 15:14:00 Event Hanane Ledezma 83924.1.[address] 3.430.2.7 Hospit a .3.993494 l .8 2021-05-19 2021-05-19 Surgery Juwan You 1.2.840.1 [id number] 27 Methodi 12:05:00 14:45:[address] 3.430.2.7 Hospit a .3.501422 l .8 2021-05-19 2021-05-19 Travel 1.2.840.1 1.2.063.430 4554 908814 Methodi 00:00:00 00:00:[address] 3.430.2.7 0.2.7.3.698 Ho spita .3.907602 084.8 l .8 2021-05-14 2021-05-14 Telephone Corin, 1.2.840.1 [id number] Methodi 00:00:00 00:00:[address] 3.430.2.7 Hospit a .3.029649 l .8 2021-05-14 2021-05-14 Prep for Anthony, 1.2.840.1 [id number] Methodi 00:00:00 00:00:00 Surgery Forrest 23619.1.[address] 3.430.2.7 Hospit a .3.005146 l .8 2021-05-13 2021-05-13 Orders Doctor JOANNA 1.2.840.114 [id number] Univers 00:00:00 00:00:00 Only Unassigned, BEKA 350.1.13.10 ity of Deport [facility] 4.2.7.2.686 Baljinder as [id number] [place] [address] Branch 2021-05-12 2021-05-12 Office Juwan You 1.2.840.1 [id number] 68318 Methodi 09:00:00 09:32:[address] 3.430.2.7 Hospit a .3.859438 l .8 2021-05-12 2021-05-12 Outpatient JUWAN YOU [facility] [id number] 8449 [place] 00:00:00 00:00:[address] 2021-05-12 2021-05-12 Telephone Anthony, 1.2.840.1 [id number] Methodi 00:00:00 00:00:[address] 3.430.2.7 Hospit a .3.372188 l .8 2021-05-12 2021-05-12 Travel 1.2.840.1 1.2.262.390 0826 950931 Methodi 00:00:00 00:00:[address] 3.430.2.7 0.2.7.3.698 Ho spita .3.642517 084.8 l .8 2021-05-08 2021-05-08 Orders Anthony, 1.2.840.1 [id number] 722414 0308 Methodi 00:00:00 00:00:00 Only Forrest 96094.1.[address] 3.430.2.7 Hospit a .3.902355 l .8 2021-05-08 2021-05-08 Telephone Ramana, 1.2.840.1 [id number] Methodi 00:00:00 00:00:[address] 3.430.2.7 Hospit a .3.539448 l .8 2021-05-05 2021-05-05 Office Pati Juwan 1.2.840.1 [id number] 35469 Methodi 14:00:00 15:41:[address] 3.430.2.7 Hospit a .3.409998 l .8 2021-05-05 2021-05-05 Travel 1.2.840.1 1.2.575.339 3523 970021 Methodi 00:00:00 00:00:[address] 3.430.2.7 0.2.7.3.698 Ho spita .3.520294 084.8 l .8 2021-05-01 2021-05-01 Telephone Joe, 1.2.840.1 [id number] 2099 516608 Methodi 00:00:00 00:00:[address] [facility] 3.430.2.7 Hosp jo-ann .3.141864 l .8 2021-04-08 2021-04-08 Outpatient Sj BHAT [facility] [id number] 799 Univers 09:00:00 09:00:00 MONA ity of [facility] 2021-03-24 2021-03-24 Transition Misha Garcia 1.2.840.114 878 49008 Univers 00:00:00 00:00:00 of Anny Guzman 350.1.13.10 it [place] [id number] [address] Branch 2021-03-19 2021-03-21 [facility] Jimena Eastno 1.2.840.1 1007 753100 [id number] Univers 08:24:00 23:08:00 Encounter Eze Dias 15269.1.1 ity of Obed Gray 3.104.2.7 [place] .3.762050 Medica l .8 Branch 2021-03-21 2021-03-21 Outpatient DMG DMG [id number] 021 Devoted 08:01:00 08:01:00 1001 Medica l Group 2021-03-19 2021-03-19 Orders Doctor 1.2.840.7 [id number] 235 Univers 00:00:00 00:00:00 Only Unassigned, 37530.1.1 ity of [place]ort 3.104.2.7 [place] .3.152217 Medica l .8 Branch 2021-03-19 2021-03-19 Travel 1.2.840.1 1.2.131.230 8518 4264 Univers 00:00:00 00:00:00 52873.1.1 350.1.13.10 ity 3.104.2.7 4[place]7.3.698 [place] .3.405958 084.8 Medica l .8 Branch 2021-01-21 2021-01-29 [facility] 42783 Memoria 15:50:00 20:14:00 Vin [facility] 2021-01-21 2021-01-29 Inpatient U AYDEE, [facility] CAR 7512 [facility] 10:50:00 15:14:00 MONISHA 2021-01-21 2021-01-29 [facility] [id number] 10:50:00 15:14:00 Monisha 2021-01-24 2021-01-24 Outpatient [facility] 10255-3 021 [facility] 08:00:00 08:00:00 0806 Medica l Group 2021-01-21 2021-01-21 [facility] [id number] [id number] 10:50:00 10:50:00 Monisha 12 2021-01-03 2021-01-03 Office DOMINIQUE Diane 1.2.840.114 [id number] 903 07:44:43 09:30:54 Visit Alexandr ALTMAN 350.1.13.58 MEDICAL 9.2.7.2.686 [facility] [id number] 1 2021-01-03 2021-01-03 Office DOMINIQUE Diane 1.2.840.114 [id number] 903 [place] 07:44:43 09:30:54 Visit Alexandr ALTMAN 350.1.13.58 H [facility] MEDICAL 9.2.7.2.686 [facility] [id number] 1 2020-12-26 2020-12-26 Outpatient Sj KIMBLE [facility] [id number] 561 Univers 10:30:00 10:30:00 SENDIL ity of [facility] 2020-12-24 2020-12-25 Outpatient nullFlavo [facility] 424 [id number] Memoria 15:32:00 04:59:00 r Disease 11 l [facility] 2020-12-24 2020-12-24 Outpatient WRIGHT, [facility] 7511 [facility] 10:32:00 23:59:00 WONG 2020-12-24 2020-12-24 Outpatient Wright, [facility] [id number] 175 10:32:00 23:59:00 Wong 11 [place] 2020-11-12 2020-11-12 Outpatient R CARLOS [facility] [id number] 657 Univers 09:00:00 09:00:00 JOSE LUIS itcaron [facility] 2020-10-27 2020-10-27 Keyona Kimble [facility] 1.2.840.114 [id number] 00:00:00 00:00:00 (Out) Oz Lehman 350.1.13.10 [place] 4.2.7.2.686 Professio [phone] [address] 2020-10-27 2020-10-27 Keyona Kimble [facility] 1.2.840.114 [id number] 98 Univers 00:00:00 00:00:00 (Out) Oz Lehman 350.1.13.10 it[place] [phone] [address] 2020-10-24 2020-10-24 Orders Doctor JOANNA 1.2.840.114 [id number] 42 00:00:00 00:00:00 Only Unassigned, BEKA 350.1.13.10 Deport [facility] 4.2.7.2.686 [phone] [facility] 2020-10-24 2020-10-24 Orders Doctor JOANNA 1.2.840.114 [id number] Univers 00:00:00 00:00:00 Only Unassigned, BEKA 350.1.13.10 ity of Deport [facility] 4.2.7.2.686 Baljinder as [phone] [address] 2020-09-24 2020-09-24 Refill Carlos [facility] 1.2.840.114 [id number] 24 00:00:00 00:00:00 Jose Luis Lehman 350.1.13.10 [place] 4.2.7.2.686 Professio [phone] nal [address] 2020-09-24 2020-09-24 [facility] 1.2.840.114 [id number] 24 Univers 00:00:00 00:00:00 Jose Luis Bergholz 350.1.13.10 i ty [place] Profess[place] [phone] Me dical nal [address] 2020-09-09 2020-09-09 [facility] 1.2.840.114 [id number] 44 00:00:00 00:00:00 Outreach Earl PRIMARY 350.1.13.10 Manuel CARE 4.2.7.2.686 PAVILLION [id number] 388 2020-09-09 2020-09-09 [facility] 1.2.840.114 [id number] 44 Univers 00:00:00 00:00:00 Outreach Earl PRIMARY 350.1.13.10 i ty of [place] [phone] Me dical [address] [place] 2020-08-06 2020-08-06 [facility] [id number] Univers 14:30:00 14:30:[address] [facility] 2020-08-05 2020-08-05 [facility] [id number] Univers 13:30:00 13:30:00 DEJA ity [facility] 2020-07-23 2020-07-23 [facility] 1.2.840.114 [id number] Univers 13:39:08 23:59:00 Encounter Deja PRIMARY 350.1.13.10 ity of [place]2.[place] [id number] Me dical [address] 2020-07-23 2020-07-23 Office [facility] [id number] 13:31:20 14:37:36 Visit Deja PRIMARY 350.1.13.10 A CARE 4.2.7.2.686 PAVILLION [id number] [id number] 2020-07-23 2020-07-23 Office [facility] [id number] Univers 13:31:20 14:37:36 Visit Deja PRIMARY 350.1.13.10 it[place] [id number] [address] 2020-07-23 2020-07-23 [facility] [id number] Univers 13:30:00 13:30:00 DEJA ity [facility] 2020-07-09 2020-07-09 Outpatient R [facility] [id number] Univers 09:00:00 09:00:00 ity of [facility] 2020-07-03 2020-07-03 [place] [facility] [id number] Univers 00:00:00 00:00:00 Oz Lehman 350.1.13.10 ity [place] Profess[place] [phone] [place] [address] 2020-06-27 2020-06-27 [facility] 1.2.840.114 [id number] Univers 10:05:43 11:00:00 Visit Oz Lehman 350.1.13.10 ity [place]7.2.[place] [phone] [place] [address] 2020-06-27 2020-06-27 [facility] 1.2.840.114 [id number] Univers 10:05:43 11:00:00 Visit Oz LEHMAN 350.1.13.10 ity [place]2.7.2.[place] [phone] [place] [address] 2020-06-27 2020-06-27 [facility] [id number] Univers 09:30:00 11:00:00 SENDIL ity [facility] 2020-06-27 2020-06-27 Outpatient R LAMIN [facility] [id number] Univers 09:30:00 09:30:00 SENDIL ity [facility] 2020-05-28 2020-05-28 Laboratory Pc, Adc Echo Room 1 - [facility] 1 .2.840.114 [id number] Univers 08:01:11 08:48:06 Only Oz Kimble 350.1.13. 10 [place] [phone] [place] dichi nal 059 [facility] 2020-05-28 2020-05-28 Outpatient R [facility] [id number] Univers 08:00:00 [facility] 2020-05-10 Nurse Visit, [facility] Nurse [facility] 1.2.840.1 [id number] Univers 08:31:07 08:43:46 Visit Oz Kimble 350.1.13. 10 [place].2.[place] [phone] [place] dichi nal 059 [facility] 2020-05-10 2020-05-10 Outpatient R LAMIN [facility] [id number] Univers 08:30:00 08:30:[address] [facility] 2020-05-07 2020-05-07 Outpatient R [facility] [id number] Univers 08:00:00 08:00:00 ity [facility] 2020-05-01 2020-05-01 Office [facility] 1.2.840.114 [id number] Univers 11:02:55 12:04:48 Visit Jose Luis Lehman 350.1.13.10 i ty [place].2[place] [phone] [facility] nal 220 [facility] 2020-05-01 2020-05-01 Outpatient R CARLOS [facility] [id number] Univers 10:30:00 10:30:00 [facility] 2020-04-25 2020-04-25 Office [facility] 1.2.840.114 [id number] Univers 10:07:58 10:48:50 Visit Oz Lehman 350.1.13.10 ity [facility] [phone] [place] 059 [facility] 2020-04-25 2020-04-25 [facility] [id number] Univers 10:00:00 10:00:00 SENDIL ity of [facility] 2020-04-25 2020-04-25 Orders Doctor JOANNA 1.2.840.114 [id number] Univers 00:00:00 00:00:00 Only Unassigned, BEKA 350.1.13.[address] [facility] 4.2.7.2.686 Baljinder as [phone] [address] 2020-04-05 2020-04-05 [facility] [id number] Univers 09:30:00 09:30:00 SENDIL ity [facility] 2020-04-03 2020-04-03 Director Internal Audit 2, Adc Lab [facility] 1.2.840.114 [id number] Univers 13:13:38 13:28:38 Visit Mona Bhat 350.1.13.10 ity [facility] [place] [phone] [place] 353 [facility] 2020-04-03 2020-04-03 [facility] [id number] Univers 13:00:00 13:00:00 MONA ity [facility] 2020-04-02 2020-04-02 Office [facility] 1.2.840.114 [id number] Univers 09:00:33 09:54:22 Visit Mona Lehman 350.1.13.10 ity [facility] [place] [phone] [place]ical [place]al 134 [facility] 2020-04-02 2020-04-02 [facility] [id number] Univers 08:30:00 08:30:00 MONA ity [facility] 2020-04-02 2020-04-02 Outpatient R CASEY [facility] [id number] Univers 08:30:00 08:30:00 MONA berkowitzcaron [facility] 2020-04-02 2020-04-02 Emergency [facility] 1.2.840.114 [id number] Univers 00:24:00 01:09:00 Marlinzora Lehman 350.1.13.10 i ty of [place] [phone] [facility] [address] [place] [address] 2020-04-02 2020-04-02 Orders Doctor JOANNA 1.2.840.114 [id number] Univers 00:00:00 00:00:00 Only Unassigned, BEKA 350.1.13.[address] [facility] 4.2.7.2.686 Baljinder as [phone] [facility] [address] 2020-03-16 2020-03-16 Telephone [facility] 1.2.840.114 [id number] Univers 00:00:00 00:00:00 Yury Lehman 350.1.13.10 i ty of [place] [phone] [place] 134 [facility] 2020-03-08 2020-03-08 [facility] [id number] Univers 11:00:00 11:00:00 LIMA currie [facility] 2020-03-07 2020-03-07 Telephone [facility] 1.2.840.114 [id number] Univers 00:00:00 00:00:00 Lima Lehman 350.1.13.10 ity [place] [phone] [place] dical nal 188 [facility] 2020-02-06 2020-02-06 [facility] [id number] Univers 09:30:00 09:30:00 BRANDON low [facility] 2020-02-06 2020-02-06 Office [facility] 1.2.840.114 [id number] Univers 08:57:01 09:24:05 Visit Brandon Lehman 350.1.13.10 i ty of [place].2.686 [place] [facility] [phone] [place]ical [place]al [address] 2020-01-25 2020-01-31 Inpatient 1 Rei Waldron [facility] GPY [id number] 21:31:00 18:15:00 Rei Waldron [facility] 2020-01-24 2020-01-24 [facility] [id number] Univers 09:45:00 09:45:00 HUMAIR ity [facility] 2020-01-23 2020-01-23 Outpatient Sj [facility] [id number] Univers 10:30:00 10:30:00 HUMAIR ity [facility] 2019-12-18 2019-12-18 Outpatient [facility] [id number] Univers 08:00:00 08:00:00 YISSEL [facility] 2019-12-04 2019-12-04 Outpatient [facility] [id number] Univers 14:15:00 14:15:00 BRANDON ity [facility] 2019-11-06 2019-11-06 Telemedici Tangela, UNIVERSIT 1.2.840.114 [id number] Univers 07:49:37 08:46:52 ne Visit Yissel Caron 350.1.13.10 ity of [facility] 4.2.7.2.686 Baljinder as BANK [phone] [facility] BLDG. [address] 2019-11-06 2019-11-06 Outpatient Sj RUST [facility] [id number] Univers 08:00:00 08:00:00 YISSEL ity [facility] 2019-10-01 2019-10-01 Emergency [facility] [id number] Univers 15:47:29 19:01:00 Stacie Lehman 350.1.13.10 i ty of [place].2.[place] [phone] [facility] [address] 2019-09-05 2019-09-05 Outpatient Sj JOHN [facility] [id number] Univers 13:30:00 13:30:00 BRANDON ity of [facility] 2019-08-28 2019-08-28 Outpatient Sj RUVALCABAZEKE [facility] [id number] Univers 15:00:00 15:00:00 ity of [facility] 2019-02-27 2019-02-27 Telephone [facility] 1.2.840.114 [id number] Univers 00:00:00 00:00:00 Adán T SPECIALTY 350.1.13.10 ity of [place] [phone] [facility] 188 [facility] 2019-02-25 2019-02-25 Telephone [facility] 1.2.840.114 [id number] Univers 00:00:00 00:00:00 Adán T SPECIALTY 350.1.13.10 ity [place] [phone] Va jim PAR[place] 205 [facility] 2019-02-22 2019-02-22 [facility] 1[facility].8 40.114 [id number] Univers 09:19:22 23:59:00 Encounter Outpt-Josy, Ccl [place] 350.1.13.10 ity of Hospital 4.2.7.2.686 Baljinder as [phone] [address] 2019-02-22 2019-02-22 [facility] 1.2.8 40.114 [id number] Univers 08:00:00 09:18:00 Encounter Outpt-Josy, Ccl [place] 350.1.13.10 ity of [facility] 4.2.7.2.686 Baljinder as [phone] [facility] [address] 2019-02-17 2019-02-17 Office Germán [facility] 1.2.840.114 [id number] Univers 13:09:08 13:54:39 Visit Gary gray 350.1.13.10 ity of [place].2.[place] [phone] [facility] [address] 2019-02-17 2019-02-17 Orders Doctor MARSHALL 1.2.840.114 [id number] Univers 00:00:00 00:00:00 Only Unassigned, BEKA 350.1.13.10 ity of [place] [facility] 4.2.7.2.686 Baljinder as [phone] [facility] [address] 2019-01-25 2019-01-25 Telephone Traci Kimble 1.2.581.013 [id number] Univers 00:00:00 00:00:00 Oz [place] 350.1.13.10 ity of Hospital 4.2.7.2.686 Baljinder as [phone] [facility] [address] 2019-01-25 2019-01-25 Telephone Traci Kimble 1.2.130.133 [id number] Univers 00:00:00 00:00:00 Sendbhavana Bolaños Beka 350.1.13.10 ity of Hospital 4.2.7.2.686 Baljinder as [phone] [facility] [address] 2019-01-20 2019-01-20 Office [facility] 1.2.840.114 [id number] Univers 08:55:54 09:56:43 Visit Oz Lehman 350.1.13.10 ity [place] [phone] [place] dical nal 059 [facility] 2019-01-14 2019-01-15 Emergency Hunderup, TRAUMA 1.2.840.114 [id number] Univers 18:20:35 00:24:00 [facility] 350.1.13.10 it y of [place]2.[place] [phone] [facility] [address] 2019-01-13 2019-01-13 Office [facility] 1.2.840.114 [id number] Univers 08:10:44 09:19:41 Visit [place] Lehman 350.1.13.10 ity [place].2.[place] [phone] [place] dical nal 205 [facility] 2018-05-24 2018-05-[address], SLE SLE [id number] SLEH 00:00:00 00:00:00 LY 2016-07-24 2016-07-30 Inpatient nullFlavo [facility] [id number] Memoria 02:04:00 16:20:[address] 2016-07-23 2016-07-30 Outpatient Yaquelin [facility] [id number] 20:04:00 10:20:00 Luna Segundo 2016-06-10 2016-06-15 [facility] [id number] Memoria 16:02:00 18:23:[address] 2016-06-10 2016-06-15 Outpatient Franck [facility] [id number] 10:02:00 12:23:00 Joe Yan 09 2014-06-26 2014-06-26 EC nullFlavo [facility] [id number] Memoria 05:25:00 15:14:00 Emergency r Oran 08 [facility] 2014-06-25 2014-06-26 Outpatient Ostermayer, 2.16.840. 2.16.840. 1. [id number] 23:25:00 09:14:00 Atul [id number]. [id number] Cem 3.615.0.1 5.0.266 08 4842-10-25 2013-04-15 [facility] [id number] Memoria 21:04:00 01:45:[address] 2013-04-14 2013-04-15 Outpatient 2.16.840. 2.16.840.1. 4 [id number] Memoria 21:04:00 01:45:00 [id number]. [id number] 07 l 3.615.0.1 5.0.101 Jake n [facility] 2013-04-14 2013-04-15 Outpatient 2.16.840. 2.16.840.1. 4 [id number] Memoria 21:04:00 01:45:00 1.898979. [id number] 07 l 3.615.0.1 5.0.101 Jake n [facility] 2013-04-14 2013-04-15 Outpatient 2.16.840. 2.16.840.1. 4 [id number] Memoria 21:04:00 01:45:00 1.004154. [id number] 07 l 3.615.0.1 5.0.101 Jake n 01 [facility] 2013-04-14 2013-04-15 Outpatient 2.16.840. 2.16.840.1. 4 [id number] Memoria 21:04:00 01:45:00 [id number]. [id number] 07 l 3.615.0.1 5.0.101 Jake n 01 [facility] 2013-04-14 2013-04-15 Outpatient 2.16.840. 2.16.840.1. 4 [id number] Memoria 21:04:00 01:45:00 1.910180. [id number] 07 l 3.615.0.1 5.0.101 Jake n [facility] 2012-03-14 2012-03-14 Emergency nullFlavo [id number] Memoria 16:32:00 22:39:00 r [facility] 04 [facility] 2011-11-28 2011-11-30 OU nullFlavo [facility] [id number] Memoria 12:16:00 20:40:00 [facility] 03 [facility] 2011-09-18 2011-09-18 Emergency nullFlavo [facility] [id number] Memoria 08:23:00 13:34:00 [facility] 02 [facility] 2011-09-01 2011-09-09 Inpatient nullFlavo [facility] [id number] Memoria 01:40:00 15:00:00 [facility] 01 [facility] 2011-08-19 2011-08-23 Inpatient nullFlavo [facility] [id number] Memoria 14:25:00 15:28:[address] Results Test Description Test Time Test Comments Results Result Comments Source AFB culture 2021-07-22 18:13:19 Test Item Value Reference Range Interpretation Comme nts AFB culture isolate No growth after 6 weeks of Specimen InformationSpecimen (test code = 543-9) incubation. Source: DrainageSpecimen Site: Thigh: infected wound right [facility] [id number] 18:13:19 Test Item Value Reference Range Interpretation Comments AFB culture No growth Specimen isolate (test after 6 weeks InformationSp ecimen code = 543-9) of Source: [place] geSpecimen incubation. Site: Thigh: in fected wound right [facility] [id number] 18:13:19 Test Item Value Reference Range Interpretation Comments AFB culture No growth Specimen isolate (test after 6 weeks InformationSp ecimen code = 543-9) of Source: [place] geSpecimen incubation. Site: Thigh: in fected wound right [facility] [id number] 18:13:19 Test Item Value Reference Range Interpretation Comments AFB culture No growth Specimen isolate (test after 6 weeks InformationSp ecimen code = 543-9) of Source: [place] geSpecimen incubation. Site: Thigh: in fected wound right [facility] [place]2022-02-01 18:13:19 Test Item Value Reference Range Interpretation Comments AFB culture No growth Specimen isolate (test after 6 weeks InformationSp ecimen code = 543-9) of Source: [place] geSpecimen incubation. Site: Thigh: in fected wound right [facility] [id number] 18:13:19 Test Item Value Reference Range Interpretation Comments AFB culture No growth Specimen isolate (test after 6 weeks InformationSp ecimen code = 543-9) of Source: [place] geSpecimen incubation. Site: Thigh: in fected wound right [facility] [id number] 18:13:19 Test Item Value Reference Range Interpretation Comments AFB culture No growth Specimen isolate (test after 6 weeks InformationSp ecimen code = 543-9) of Source: [place] geSpecimen incubation. Site: Thigh: in fected wound right [facility] [id number] 18:13:19 Test Item Value Reference Range Interpretation Comments AFB culture No growth Specimen isolate (test after 6 weeks InformationSp ecimen code = 543-9) of Source: [place] geSpecimen incubation. Site: Thigh: in fected wound right [facility] [id number] 18:13:19 Test Item Value Reference Range Interpretation Comments AFB culture No growth Specimen isolate (test after 6 weeks InformationSp ecimen code = 543-9) of Source: [place] geSpecimen incubation. Site: Thigh: in fected wound right [facility] [id number] 18:13:19 Test Item Value Reference Range Interpretation Comments AFB culture No growth Specimen isolate (test after 6 weeks InformationSp ecimen code = 543-9) of Source: [place] geSpecimen incubation. Site: Thigh: in fected wound right [facility] [id number] 18:13:19 Test Item Value Reference Range Interpretation Comments AFB culture No growth Specimen isolate (test after 6 weeks InformationSp ecimen code = 543-9) of Source: [place] geSpecimen incubation. Site: Thigh: in fected wound right [facility] [id number] 18:15:13 Test Item Value Reference Range Interpretation Comments Fungus culture No growth Specimen isolate (test after 4 weeks InformationSp ecimen code = 1441) of Source: TissueS pecimen incubation. Site: Thigh [facility]2022-01-25 18:15:13 Test Item Value Reference Range Interpretation Comments Fungus culture No growth Specimen isolate (test after 4 weeks InformationSp ecimen code = 1441) of Source: TissueS pecimen incubation. Site: Thigh [facility]2022-01-25 18:15:13 Test Item Value Reference Range Interpretation Comments Fungus culture No growth Specimen isolate (test after 4 weeks InformationSp ecimen code = 1441) of Source: TissueS pecimen incubation. Site: Thigh [facility]2022-01-25 18:15:13 Test Item Value Reference Range Interpretation Comments Fungus culture No growth Specimen isolate (test after 4 weeks InformationSp ecimen code = 1441) of Source: TissueS pecimen incubation. Site: Thigh [facility]2022-01-25 18:15:13 Test Item Value Reference Range Interpretation Comments Fungus culture No growth Specimen isolate (test after 4 weeks InformationSp ecimen code = 1441) of Source: TissueS pecimen incubation. Site: Thigh [facility]2022-01-25 18:15:13 Test Item Value Reference Range Interpretation Comments Fungus culture No growth Specimen isolate (test after 4 weeks InformationSp ecimen code = 1441) of Source: TissueS pecimen incubation. Site: Thigh [facility] [id number] 18:15:13 Test Item Value Reference Range Interpretation Comments Fungus culture No growth Specimen isolate (test after 4 weeks InformationSp ecimen code = 1441) of Source: TissueS pecimen incubation. Site: Thigh [facility]2022-01-25 18:15:13 Test Item Value Reference Range Interpretation Comments Fungus culture No growth Specimen isolate (test after 4 weeks InformationSp ecimen code = 1441) of Source: TissueS pecimen incubation. Site: Thigh [facility] [id number] 18:15:13 Test Item Value Reference Range Interpretation Comments Fungus culture No growth Specimen isolate (test after 4 weeks InformationSp ecimen code = 1441) of Source: TissueS pecimen incubation. Site: [facility]2022-01-25 18:15:13 Test Item Value Reference Range Interpretation Comments Fungus culture No growth Specimen isolate (test after 4 weeks InformationSp ecimen code = 1441) of Source: TissueS pecimen incubation. Site: Thigh [facility]2022-01-25 18:15:13 Test Item Value Reference Range Interpretation Comments Fungus culture No growth Specimen isolate (test after 4 weeks InformationSp ecimen code = 1441) of Source: TissueS pecimen incubation. Site: [facility]2022-01-25 18:15:13 Test Item Value Reference Range Interpretation Comments Fungus culture No growth Specimen isolate (test after 4 weeks InformationSp ecimen code = 1441) of Source: TissueS pecimen incubation. Site: [facility]2022-01-25 18:15:13 Test Item Value Reference Range Interpretation Comments Fungus culture No growth Specimen isolate (test after 4 weeks InformationSp ecimen code = 1441) of Source: TissueS pecimen incubation. Site: [facility]2022-01-01 14:31:13 Test Item Value Reference Range Interpretation Comments Anaerobic No anaerobic Specimen culture isolate organisms InformationS pecimen (test code = isolated. Source: TissueS pecimen 552) Site: [facility]2022-01-01 14:31:13 Test Item Value Reference Range Interpretation Comments Anaerobic No anaerobic Specimen culture isolate organisms InformationS pecimen (test code = isolated. Source: TissueS pecimen 552) Site: [address]01 14:31:13 Test Item Value Reference Range Interpretation Comments Anaerobic No anaerobic Specimen culture isolate organisms InformationS pecimen (test code = isolated. Source: TissueS pecimen 552) Site: [place] [address]-01-01 14:31:13 Test Item Value Reference Range Interpretation Comments Anaerobic No anaerobic Specimen culture isolate organisms InformationS pecimen (test code = isolated. Source: TissueS pecimen 552) Site: [place] [address]-01-01 14:31:13 Test Item Value Reference Range Interpretation Comments Anaerobic No anaerobic Specimen culture isolate organisms InformationS pecimen (test code = isolated. Source: TissueS pecimen 552) Site: [place] [address]-01-01 14:31:13 Test Item Value Reference Range Interpretation Comments Anaerobic No anaerobic Specimen culture isolate organisms InformationS pecimen (test code = isolated. Source: TissueS pecimen 552) Site: [place] 238922-01-01 14:31:13 Test Item Value Reference Range Interpretation Comments Anaerobic No anaerobic Specimen culture isolate organisms InformationS pecimen (test code = isolated. Source: TissueS pecimen 552) Site: [place] [address]-01-01 14:31:13 Test Item Value Reference Range Interpretation Comments Anaerobic No anaerobic Specimen culture isolate organisms InformationS pecimen (test code = isolated. Source: TissueS pecimen 552) Site: [place] 238922-01-01 14:31:13 Test Item Value Reference Range Interpretation Comments Anaerobic No anaerobic Specimen culture isolate organisms InformationS pecimen (test code = isolated. Source: TissueS pecimen 552) Site: [place] 238922-01-01 14:31:13 Test Item Value Reference Range Interpretation Comments Anaerobic No anaerobic Specimen culture isolate organisms InformationS pecimen (test code = isolated. Source: TissueS pecimen 552) Site: [place] [address]-01-01 14:31:13 Test Item Value Reference Range Interpretation Comments Anaerobic No anaerobic Specimen culture isolate organisms InformationS pecimen (test code = isolated. [facility]: [facility] Site: [place] 238922-01-01 14:31:13 Test Item Value Reference Range Interpretation Comments Anaerobic No anaerobic Specimen culture isolate organisms InformationS pecimen (test code = isolated. Source: [facility] Site: [facility]2022-01-01 14:31:13 Test Item Value Reference Range Interpretation Comments Anaerobic No anaerobic Specimen culture isolate organisms InformationS pecimen (test code = isolated. Source: [facility] 552) Site: [facility]2021-12-31 16:51:58 Test Item Value Reference Range Interpretation Comments Gram stain No WBC's or Specimen isolate (test organisms seen. Information Specimen code = 1469) Source: [facility] Site: [facility] [id number] 16:51:58 Test Item Value Reference Range Interpretation Comments Aerobic culture No growth Specimen isolate (test after 3 days. InformationSp ecimen code = 498) Source: [facility] Site: [facility] [id number] 16:51:58 Test Item Value Reference Range Interpretation Comments Fungus smear No fungi Specimen (test code = observed. InformationSpec imen Source: 1443) [facility] Site: [facility]2021-12-31 16:51:58 Test Item Value Reference Range Interpretation Comments Gram stain No WBC's or Specimen isolate (test organisms seen. Information Specimen code = 1469) Source: [facility] Site: [facility] [id number] 16:51:58 Test Item Value Reference Range Interpretation Comments Aerobic culture No growth Specimen isolate (test after 3 days. InformationSp ecimen code = 498) Source: [facility] [id number] 16:51:58 Test Item Value Reference Range Interpretation Comments Fungus smear No fungi Specimen (test code = observed. InformationSpec imen Source: 1443) [facility] Site: [facility] [id number] 16:51:58 Test Item Value Reference Range Interpretation Comments Gram stain No WBC's or Specimen isolate (test organisms seen. Information Specimen code = 1469) Source: [facility] [id number] 16:51:58 Test Item Value Reference Range Interpretation Comments Aerobic culture No growth Specimen isolate (test after 3 days. InformationSp ecimen code = 498) Source: [facility] Site: [facility] HospitalFungus [id number] 16:51:58 Test Item Value Reference Range Interpretation Comments Fungus smear No fungi Specimen (test code = observed. InformationSpec imen Source: 1443) TissueSpecime Site: [facility] [id number] 16:51:58 Test Item Value Reference Range Interpretation Comments Gram stain No WBC's or Specimen isolate (test organisms seen. Information Specimen code = 1469) Source: [facility] Site: [facility] [id number] 16:51:58 Test Item Value Reference Range Interpretation Comments Aerobic culture No growth Specimen isolate (test after 3 days. InformationSp ecimen code = 498) Source: [facility] [id number] 16:51:58 Test Item Value Reference Range Interpretation Comments Fungus smear No fungi Specimen (test code = observed. InformationSpec imen Source: 1443) [facility]2021-12-31 16:51:58 Test Item Value Reference Range Interpretation Comments Gram stain No WBC's or Specimen isolate (test organisms seen. Information Specimen code = 1469) Source: [facility] Site: [facility] HospitalAerobic [id number] 16:51:58 Test Item Value Reference Range Interpretation Comments Aerobic culture No growth Specimen isolate (test after 3 days. InformationSp ecimen code = 498) Source: [facility]: [facility] [id number] 16:51:58 Test Item Value Reference Range Interpretation Comments Fungus smear No fungi Specimen (test code = observed. InformationSpec imen Source: 1443) [facility] Site: [facility] [id number] 16:51:58 Test Item Value Reference Range Interpretation Comments Gram stain No WBC's or Specimen isolate (test organisms seen. Information Specimen code = 1469) Source: [facility] [id number] 16:51:58 Test Item Value Reference Range Interpretation Comments Aerobic culture No growth Specimen isolate (test after 3 days. InformationSp ecimen code = 498) Source: [facility] [id number] 16:51:58 Test Item Value Reference Range Interpretation Comments Fungus smear No fungi Specimen (test code = observed. InformationSpec imen Source: 1443) TissueSpecimen Site: [facility] [id number] 16:51:58 Test Item Value Reference Range Interpretation Comments Gram stain No WBC's or Specimen isolate (test organisms seen. Information Specimen code = 1469) Source: [facility] [id number] 16:51:58 Test Item Value Reference Range Interpretation Comments Aerobic culture No growth Specimen isolate (test after 3 days. InformationSp ecimen code = 498) Source: [facility] [id number] 16:51:58 Test Item Value Reference Range Interpretation Comments Fungus smear No fungi Specimen (test code = observed. InformationSpec imen Source: 1443) TissueSpecime Site: [facility] [id number] 16:51:58 Test Item Value Reference Range Interpretation Comments Gram stain No WBC's or Specimen isolate (test organisms seen. Information Specimen code = 1469) [facility]: [facility] [id number] 16:51:58 Test Item Value Reference Range Interpretation Comments Aerobic culture No growth Specimen isolate (test after 3 days. InformationSp ecimen code = 498) Source: [facility] [id number] 16:51:58 Test Item Value Reference Range Interpretation Comments Fungus smear No fungi Specimen (test code = observed. InformationSpec imen Source: 1443) TissueSpecime Site: [facility] [id number] 16:51:58 Test Item Value Reference Range Interpretation Comments Gram stain No WBC's or Specimen isolate (test organisms seen. Information Specimen code = 1469) Source: [facility] [id number] 16:51:58 Test Item Value Reference Range Interpretation Comments Aerobic culture No growth Specimen isolate (test after 3 days. InformationSp ecimen code = 498) Source: [facility] [id number] 16:51:58 Test Item Value Reference Range Interpretation Comments Fungus smear No fungi Specimen (test code = observed. InformationSpec imen Source: 1443) TissueSpecimen Site: [facility]2021-12-31 16:51:58 Test Item Value Reference Range Interpretation Comments Gram stain No WBC's or Specimen isolate (test organisms seen. Information Specimen code = 1469) Source: [facility] [id number] 16:51:58 Test Item Value Reference Range Interpretation Comments Aerobic culture No growth Specimen isolate (test after 3 days. InformationSp ecimen code = 498) Source: [facility] Site: [facility] [id number] 16:51:58 Test Item Value Reference Range Interpretation Comments Fungus smear No fungi Specimen (test code = observed. InformationSpec imen Source: 1443) [facility]2021-12-31 16:51:58 Test Item Value Reference Range Interpretation Comments Gram stain No WBC's or Specimen isolate (test organisms seen. Information Specimen code = 1469) Source: [facility] Site: [facility]2021-12-31 16:51:58 Test Item Value Reference Range Interpretation Comments Aerobic culture No growth Specimen isolate (test after 3 days. InformationSp ecimen code = 498) Source: [facility] Site: [facility]2021-12-31 16:51:58 Test Item Value Reference Range Interpretation Comments Fungus smear No fungi Specimen (test code = observed. InformationSpec imen Source: 1443) [facility] [id number] 16:51:58 Test Item Value Reference Range Interpretation Comments Gram stain No WBC's or Specimen isolate (test organisms seen. Information Specimen code = 1469) Source: [facility] [id number] 16:51:58 Test Item Value Reference Range Interpretation Comments Aerobic culture No growth Specimen isolate (test after 3 days. InformationSp ecimen code = 498) [facility]: [facility] [id number] 16:51:58 Test Item Value Reference Range Interpretation Comments Fungus smear No fungi Specimen (test code = observed. InformationSpec imen Source: 1443) TissueSpecimen [facility] [id number] 16:51:58 Test Item Value Reference Range Interpretation Comments Gram stain No WBC's or Specimen isolate (test organisms seen. Information Specimen code = 1469) Source: [facility] [id number] 16:51:58 Test Item Value Reference Range Interpretation Comments Aerobic culture No growth Specimen isolate (test after 3 days. InformationSp ecimen code = 498) Source: [facility] [id number] 16:51:58 Test Item Value Reference Range Interpretation Comments Fungus smear No fungi Specimen (test code = observed. InformationSpec imen Source: 1443) TissueSpecimen Site: [facility] [id number] 17:00:57 Test Item Value Reference Range Interpretation Comments POC glucose (test code 79 mg/dL 65-99 Opera tor Name: Eboni = 61790-3) AmiDevice ID: [id number] [facility] [id number] 17:00:57 Test Item Value Reference Range Interpretation Comments POC glucose (test code 79 mg/dL 65-99 Opera tor Name: Eboni = 72970-8) AmiDevice ID: [id number] [facility] [id number] 17:00:57 Test Item Value Reference Range Interpretation Comments POC glucose (test code 79 mg/dL 65-99 Opera tor Name: Eboni = 57350-3) AmiDevice ID: [id number] [facility] [id number] 17:00:57 Test Item Value Reference Range Interpretation Comments POC glucose (test code 79 mg/dL 65-99 Opera tor Name: Eboni = 11789-0) AmiDevice ID: [id number] [facility]2021-12-29 17:00:57 Test Item Value Reference Range Interpretation Comments POC glucose (test code 79 mg/dL 65-99 Opera tor Name: Eboni = 04866-1) AmiDevice ID: [id number] [facility] [id number] 17:00:57 Test Item Value Reference Range Interpretation Comments POC glucose (test code 79 mg/dL 65-99 Opera tor Name: Eboni = 76942-5) AmiDevice ID: [id number] [facility]2021-12-29 17:00:57 Test Item Value Reference Range Interpretation Comments POC glucose (test code 79 mg/dL 65-99 Opera tor Name: Eboni = 42184-7) AmiDevice ID: [id number] [facility]2021-12-29 17:00:57 Test Item Value Reference Range Interpretation Comments POC glucose (test code 79 mg/dL 65-99 Opera tor Name: Eboni = 82445-3) AmiDevice ID: [id number] [facility]2021-12-29 17:00:57 Test Item Value Reference Range Interpretation Comments POC glucose (test code 79 mg/dL 65-99 Opera tor Name: Eboni = 72308-4) AmiDevice ID: [id number] [facility]2021-12-29 17:00:57 Test Item Value Reference Range Interpretation Comments POC glucose (test code 79 mg/dL 65-99 Opera tor Name: Eboni = 15533-9) AmiDevice ID: [id number] [facility]2021-12-29 17:00:57 Test Item Value Reference Range Interpretation Comments POC glucose (test code 79 mg/dL 65-99 Opera tor Name: Eboni = 87241-3) AmiDevice ID: [id number] [facility]2021-12-29 17:00:57 Test Item Value Reference Range Interpretation Comments POC glucose (test code 79 mg/dL 65-99 Opera tor Name: Eboni = 89506-6) AmiDevice ID: [id number] [facility]2021-12-29 17:00:57 Test Item Value Reference Range Interpretation Comments POC glucose (test code 79 mg/dL 65-99 Opera tor Name: Eboni = 90838-4Kole AmiDevice ID: [id number] [facility] [id number] 20:46:00 Test Item Value Reference Range Interpretation Comments test urine, POC (test Negative code = 7883739) Internal QC (test code = 257) QC acceptable [facility] [id number] 20:46:00 Test Item Value Reference Range Interpretation Comments test urine, POC (test Negative code = 1086978) Internal QC (test code = 257) QC acceptable [facility] [id number] 20:46:00 Test Item Value Reference Range Interpretation Comments test urine, POC (test Negative code = 7918626) Internal QC (test code = 257) QC acceptable [facility] [id number] 20:46:00 Test Item Value Reference Range Interpretation Comments test urine, POC (test Negative code = 0767112) Internal QC (test code = 257) QC acceptable [facility] , [id number] 20:46:00 Test Item Value Reference Range Interpretation Comments test urine, POC (test Negative code = 1231738) Internal QC (test code = 257) QC acceptable [facility] , [id number] 20:46:00 Test Item Value Reference Range Interpretation Comments test urine, POC (test Negative code = 2896760) Internal QC (test code = 257) QC acceptable [facility] , [id number] 20:46:00 Test Item Value Reference Range Interpretation Comments test urine, POC (test Negative code = 5083502) Internal QC (test code = 257) QC acceptable [facility] [id number] 20:46:00 Test Item Value Reference Range Interpretation Comments test urine, POC (test Negative code = 3117651) Internal QC (test code = 257) QC acceptable [facility] [id number] 20:46:00 Test Item Value Reference Range Interpretation Comments test urine, POC (test Negative code = 0017072) Internal QC (test code = 257) QC acceptable [facility] [id number] 20:46:00 Test Item Value Reference Range Interpretation Comments test urine, POC (test Negative code = 7466200) Internal QC (test code = 257) QC acceptable [facility] , [id number] 20:46:00 Test Item Value Reference Range Interpretation Comments test urine, POC (test Negative code = 5836904) Internal QC (test code = 257) QC acceptable [facility] , [id number] 20:46:00 Test Item Value Reference Range Interpretation Comments test urine, POC (test Negative code = 1747869) Internal QC (test code = 257) QC acceptable [facility] , [id number] 20:46:00 Test Item Value Reference Range Interpretation Comments test urine, POC (test Negative code = 8774143) Internal QC (test code = 257) QC acceptable [address]2021-12-27 17:27:33 Test Item Value Reference Range Interpretation Comments Ventricular rate (test code = 253) Atrial rate (test code = 255) UT interval (test code = 266) QRSD interval [...] of 04-JUN-2021 18:19,-No significant change was found- [address]2021-12-27 17:27:33 Test Item Value Reference Range Interpretation Comments Ventricular rate (test code = 253) Atrial rate (test code = 255) UT interval (test code = 266) QRSD interval [...] of 04-JUN-2021 18:19,-No significant change was found- [address]2021-12-27 17:27:33 Test Item Value Reference Range Interpretation Comments Ventricular rate (test code = 253) Atrial rate (test code = 255) UT interval (test code = 266) QRSD interval [...] of 04-JUN-2021 18:19,-No significant change was found- [address]2021-12-27 17:27:33 Test Item Value Reference Range Interpretation Comments Ventricular rate (test code = 253) Atrial rate (test code = 255) UT interval (test code = 266) QRSD interval [...] of 04-JUN-2021 18:19,-No significant change was found- [address]2021-12-27 17:27:33 Test Item Value Reference Range Interpretation Comments Ventricular rate (test code = 253) Atrial rate (test code = 255) UT interval (test code = 266) QRSD interval [...] of 04-JUN-2021 18:19,-No significant change was found- [address]2021-12-27 17:27:33 Test Item Value Reference Range Interpretation Comments Ventricular rate (test code = 253) Atrial rate (test code = 255) UT interval (test code = 266) QRSD interval [...] of 04-JUN-2021 18:19,-No significant change was found- [address]2021-12-27 17:27:33 Test Item Value Reference Range Interpretation Comments Ventricular rate (test code = 253) Atrial rate (test code = 255) UT interval (test code = 266) QRSD interval [...] of 04-JUN-2021 18:19,-No significant change was found- [address]2021-12-27 17:27:33 Test Item Value Reference Range Interpretation Comments Ventricular rate (test code = 253) Atrial rate (test code = 255) UT interval (test code = 266) QRSD interval [...] of 04-JUN-2021 18:19,-No significant change was found- [address]2021-12-27 17:27:33 Test Item Value Reference Range Interpretation Comments Ventricular rate (test code = 253) Atrial rate (test code = 255) UT interval (test code = 266) QRSD interval [...] of 04-JUN-2021 18:19,-No significant change was found- [address]2021-12-27 17:27:33 Test Item Value Reference Range Interpretation Comments Ventricular rate (test code = 253) Atrial rate (test code = 255) UT interval (test code = 266) QRSD interval [...] of 04-JUN-2021 18:19,-No significant change was found- [address]2021-12-27 17:27:33 Test Item Value Reference Range Interpretation Comments Ventricular rate (test code = 253) Atrial rate (test code = 255) UT interval (test code = 266) QRSD interval [...] of 04-JUN-2021 18:19,-No significant change was found- [address]2021-12-27 17:27:33 Test Item Value Reference Range Interpretation Comments Ventricular rate (test code = 253) Atrial rate (test code = 255) UT interval (test code = 266) QRSD interval [...] of 04-JUN-2021 18:19,-No significant change was found- [address]2021-12-27 17:27:33 Test Item Value Reference Range Interpretation Comments Ventricular rate (test code = 253) Atrial rate (test code = 255) UT interval (test code = 266) QRSD interval [...] of 04-JUN-2021 18:19,-No significant change was found- [facility]2021-12-27 11:06:00 Test Item Value Reference Range Interpretation Comments ABO grouping (test code = 883-9) B Rh type (test code = 38641-4) POS Antibody screen (gel) (test code = NEG 890-4) [facility] and [id number] 11:06:00 Test Item Value Reference Range Interpretation Comments ABO grouping (test code = 883-9) B Rh type (test code = 65803-5) POS Antibody screen (gel) (test code = NEG 890-4) [facility] and [id number] 11:06:00 Test Item Value Reference Range Interpretation Comments ABO grouping (test code = 883-9) B Rh type (test code = 87293-9) POS Antibody screen (gel) (test code = NEG 890-4) [facility] and [id number] 11:06:00 Test Item Value Reference Range Interpretation Comments ABO grouping (test code = 883-9) B Rh type (test code = 83382-5) POS Antibody screen (gel) (test code = NEG 890-4) [facility] and [id number] 11:06:00 Test Item Value Reference Range Interpretation Comments ABO grouping (test code = 883-9) B Rh type (test code = 72117-4) POS Antibody screen (gel) (test code = NEG 890-4) [facility] and [id number] 11:06:00 Test Item Value Reference Range Interpretation Comments ABO grouping (test code = 883-9) B Rh type (test code = 53867-2) POS Antibody screen (gel) (test code = NEG 890-4) [facility] and [id number] 11:06:00 Test Item Value Reference Range Interpretation Comments ABO grouping (test code = 883-9) B Rh type (test code = 53700-0) POS Antibody screen (gel) (test code = NEG 890-4) [facility] and [id number] 11:06:00 Test Item Value Reference Range Interpretation Comments ABO grouping (test code = 883-9) B Rh type (test code = 33088-3) POS Antibody screen (gel) (test code = NEG 890-4) [facility] and [id number] 11:06:00 Test Item Value Reference Range Interpretation Comments ABO grouping (test code = 883-9) B Rh type (test code = 20202-4) POS Antibody screen (gel) (test code = NEG 890-4) [facility] [id number] 11:06:00 Test Item Value Reference Range Interpretation Comments ABO grouping (test code = 883-9) B Rh type (test code = 40584-5) POS Antibody screen (gel) (test code = NEG 890-4) [facility] and [id number] 11:06:00 Test Item Value Reference Range Interpretation Comments ABO grouping (test code = 883-9) B Rh type (test code = 35692-1) POS Antibody screen (gel) (test code = NEG 890-4) [facility] [id number] 11:06:00 Test Item Value Reference Range Interpretation Comments ABO grouping (test code = 883-9) B Rh type (test code = 92533-8) POS Antibody screen (gel) (test code = NEG 890-4) [facility] [id number] 11:06:00 Test Item Value Reference Range Interpretation Comments ABO grouping (test code = 883-9) B Rh type (test code = 17013-3) POS Antibody screen (gel) (test code = NEG 890-4) 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 InformationSp ecimen code = 34962-3) Source: Tiss ueSpecimen Site: Thigh: in fected right thigh wou nd [facility] [id number] 20:18:46 Test Item Value Reference Range Interpretation Comments Tissue culture No growth Specimen isolate (test after 3 days. InformationSp ecimen code = 46933-0) Source: Tiss ueSpecimen Site: Thigh: in fected right thigh wou nd [facility] [id number] 20:18:46 Test Item Value Reference Range Interpretation Comments Tissue culture No growth Specimen isolate (test after 3 days. InformationSp ecimen code = 01559-3) Source: Gino Pangimen Site: Thigh: in fected right thigh wou [facility] [id number] 20:18:46 Test Item Value Reference Range Interpretation Comments Tissue culture No growth Specimen isolate (test after 3 days. InformationSp ecimen code = 61298-8) Source: Gino uBrandieimen Site: Thigh: in fected right thigh wou [facility]2021-12-24 20:18:46 Test Item Value Reference Range Interpretation Comments Tissue culture No growth Specimen isolate (test after 3 days. InformationSp ecimen code = 62753-4) Source: Gino Pangimen Site: Thigh: in fected right thigh wou [facility]2021-12-24 20:18:46 Test Item Value Reference Range Interpretation Comments Tissue culture No growth Specimen isolate (test after 3 days. InformationSp ecimen code = 47125-4) Source: Gino Pangimen Site: Thigh: in fected right thigh wou [facility]2021-12-24 20:18:46 Test Item Value Reference Range Interpretation Comments Tissue culture No growth Specimen isolate (test after 3 days. InformationSp ecimen code = 17166-6) Source: Gino Pangimen Site: Thigh: in fected right thigh wou [facility] [id number] 20:18:46 Test Item Value Reference Range Interpretation Comments Tissue culture No growth Specimen isolate (test after 3 days. InformationSp ecimen code = 01529-6) Source: Gino Pangimen Site: Thigh: in fected right thigh wou [facility] [id number] 20:18:46 Test Item Value Reference Range Interpretation Comments Tissue culture No growth Specimen isolate (test after 3 days. InformationSp ecimen code = 59508-7) Source: Gino Pangimen Site: Thigh: in fected right thigh wou [facility] [id number] 20:18:46 Test Item Value Reference Range Interpretation Comments Tissue culture No growth Specimen isolate (test after 3 days. InformationSp ecimen code = 95623-6) Source: Tiss ueSpecimen Site: Thigh: in fected right thigh wou nd [facility] [id number] 20:18:46 Test Item Value Reference Range Interpretation Comments Tissue culture No growth Specimen isolate (test after 3 days. InformationSp ecimen code = 94133-2) Source: Tiss ueSpecimen Site: Thigh: in fected [facility]ou [facility] [id number] 20:24:42 Test Item Value Reference Range Interpretation Comments AFB stain No acid fast Specimen (test code = bacilli (AFB) InformationSpe cimen 676-7) seen. Source: [place] eSpecimen Site: Thigh: in fected wound right [facility] [id number] 20:24:42 Test Item Value Reference Range Interpretation Comments AFB stain No acid fast Specimen (test code = bacilli (AFB) InformationSpe cimen 676-7) seen. Source: [place] eSpecimen Site: Thigh: [facility]ect[facility] [id number] 20:24:42 Test Item Value Reference Range Interpretation Comments AFB stain No acid fast Specimen (test code = bacilli (AFB) InformationSpe cimen 676-7) seen. Source: [place] eSpecimen Site: Thigh: in fected wound right [facility] [id number] 20:24:42 Test Item Value Reference Range Interpretation Comments AFB stain No acid fast Specimen (test code = bacilli (AFB) InformationSpe cimen 676-7) seen. Source: [place] eSpecimen Site: Thigh: in fected wound right [facility] [id number] 20:24:42 Test Item Value Reference Range Interpretation Comments AFB stain No acid fast Specimen (test code = bacilli (AFB) InformationSpe cimen 676-7) seen. Source: [place] eSpecimen Site: Thigh: in fected wound right [facility] [id number] 20:24:42 Test Item Value Reference Range Interpretation Comments AFB stain No acid fast Specimen (test code = bacilli (AFB) InformationSpe cimen 676-7) seen. Source: [place] eSpecimen Site: Thigh: in fected wound right [facility] [id number] 20:24:42 Test Item Value Reference Range Interpretation Comments AFB stain No acid fast Specimen (test code = bacilli (AFB) InformationSpe cimen 676-7) seen. Source: [place] eSpecimen Site: Thigh: in fected wound right [facility] [id number] 20:24:42 Test Item Value Reference Range Interpretation Comments AFB stain No acid fast Specimen (test code = bacilli (AFB) InformationSpe cimen 676-7) seen. Source: [place] eSpecimen Site: Thigh: in fected wound right [facility] [id number] 20:24:42 Test Item Value Reference Range Interpretation Comments AFB stain No acid fast Specimen (test code = bacilli (AFB) InformationSpe cimen 676-7) seen. Source: [place] eSpecimen Site: Thigh: in fected wound right [facility] [id number] 20:24:42 Test Item Value Reference Range Interpretation Comments AFB stain No acid fast Specimen (test code = bacilli (AFB) InformationSpe cimen 676-7) seen. Source: [place] eSpecimen Site: Thigh: in fected wound right [facility]2021-12-23 20:24:42 Test Item Value Reference Range Interpretation Comments AFB stain No acid fast Specimen (test code = bacilli (AFB) InformationSpe cimen 676-7) seen. Source: Drainag eSpecimen Site: Thigh: in fected wound right [facility] cmpzcrt3434-69-03 09:49:57 Test Item Value Reference Range Interpretation Comments Urine culture No growth Specimen isolate (test after 24 InformationSpe cimen code = 58993-3) hours Source: Urin eSpecimen Site: Clean cat [facility]2021-12-20 09:49:57 Test Item Value Reference Range Interpretation Comments Urine culture No growth Specimen isolate (test after 24 InformationSpe cimen code = 42303-4) hours Source: Urin eSpecimen Site: Clean cat [facility]2021-12-20 09:49:57 Test Item Value Reference Range Interpretation Comments Urine culture No growth Specimen isolate (test after 24 InformationSpe cimen code = 00608-8) hours Source: Urin eSpecimen Site: [facility]2021-12-20 09:49:57 Test Item Value Reference Range Interpretation Comments Urine culture No growth Specimen isolate (test after 24 InformationSpe cimen code = 02107-2) hours Source: Urin eSpecimen Site: [facility]2021-12-20 09:49:57 Test Item Value Reference Range Interpretation Comments Urine culture No growth Specimen isolate (test after 24 InformationSpe cimen code = 16553-2) hours Source: Urin eSpecimen Site: [facility]2021-12-20 09:49:57 Test Item Value Reference Range Interpretation Comments Urine culture No growth Specimen isolate (test after 24 InformationSpe cimen code = 24035-3) hours Source: in eSpecimen Site: [facility]2021-12-20 09:49:57 Test Item Value Reference Range Interpretation Comments Urine culture No growth Specimen isolate (test after 24 InformationSpe cimen code = 22514-0) hours Source: Urin eSpecimen Site: [facility]2021-12-20 09:49:57 Test Item Value Reference Range Interpretation Comments Urine culture No growth Specimen isolate (test after 24 InformationSpe cimen code = 16354-6) hours Source: Urin eSpecimen Site: [facility]2021-12-20 09:49:57 Test Item Value Reference Range Interpretation Comments Urine culture No growth Specimen isolate (test after 24 InformationSpe cimen code = 26502-0) hours Source: Urin eSpecimen Site: [facility]2021-12-20 09:49:57 Test Item Value Reference Range Interpretation Comments Urine culture No growth Specimen isolate (test after 24 InformationSpe cimen code = 61307-2) hours Source: Urin eSpecimen Site: [facility]2021-12-20 09:49:57 Test Item Value Reference Range Interpretation Comments Urine culture No growth Specimen isolate (test after 24 InformationSpe cimen code = 06342-0) hours Source: Urin eSpecimen Site: [facility] blcnwuiixwks8731-36-52 12:52:00 Test Item Value Reference Range Interpretation Comments ABO grouping (test code = 883-9) B Rh type (test code = 61451-7) [facility] fibpouynvubx0746-23-40 12:52:00 Test Item Value Reference Range Interpretation Comments ABO grouping (test code = 883-9) B Rh type (test code = 20117-1) [facility] fjzuzwbxendk3317-71-51 12:52:00 Test Item Value Reference Range Interpretation Comments ABO grouping (test code = 883-9) B Rh type (test code = 14077-4) [facility] jywxicwaiwdl2987-31-91 12:52:00 Test Item Value Reference Range Interpretation Comments ABO grouping (test code = 883-9) B Rh type (test code = 35285-6) [facility] ansmciipcdzb3090-91-18 12:52:00 Test Item Value Reference Range Interpretation Comments ABO grouping (test code = 883-9) B Rh type (test code = 24742-0) [facility] lkgwjuiruiue5830-58-04 12:52:00 Test Item Value Reference Range Interpretation Comments ABO grouping (test code = 883-9) B Rh type (test code = 44169-9) [facility] cutaodmpgoir9488-72-68 12:52:00 Test Item Value Reference Range Interpretation Comments ABO grouping (test code = 883-9) B Rh type (test code = 75322-9) [facility] tdfxuygwhmro2669-68-69 12:52:00 Test Item Value Reference Range Interpretation Comments ABO grouping (test code = 883-9) B Rh type (test code = 37599-9) [facility] lymlyjjuvzut9688-97-38 12:52:00 Test Item Value Reference Range Interpretation Comments ABO grouping (test code = 883-9) B Rh type (test code = 30717-0) [facility] syxtwwcbgvry4410-94-92 12:52:00 Test Item Value Reference Range Interpretation Comments ABO grouping (test code = 883-9) B Rh type (test code = 82565-7) [facility] jtsbeatcumxg8610-63-56 12:52:00 Test Item Value Reference Range Interpretation Comments ABO grouping (test code = 883-9) B Rh type (test code = 69826-9) [facility] [Presence] in Respiratory specimen by EMANUEL with probe hdnlfxjql5627-83-28 03:04:32 Test Item Value Reference Range Interpretation Comments SARS-CoV-2 (COVID-19) RNA Not detected Not-Detected [Presence] in Respiratory specimen by EMANUEL with probe detection (test code = 67078-1) 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 [id number] 22:22:00 Test Item Value Reference Range Interpretation Comments Product name (test code Red Blood Cells -1, = 25) Leukored Unit number (test code = [id number] 5460479) Product code (test code A3880U78 = 3092) Dispense status (test Transfused code = 24) Blood expiration date (test code = 302) Blood type code (test code = 308) Blood type (test code = B POSITIVE 1314) Compatibility (test code Compatible = 6400) [facility] RBC, 1 [id number] 22:22:00 Test Item Value Reference Range Interpretation Comments Product name (test code Red Blood Cells -1, = 25) Leukored Unit number (test code = [id number] 6191611) Product code (test code P2807S34 = 3092) Dispense status (test Transfused code = 24) Blood expiration date (test code = 302) Blood type code (test code = 308) Blood type (test code = B POSITIVE 1314) Compatibility (test code Compatible = 6400) [facility] RBC, 1 Sejhj4307-62-90 22:22:00 Test Item Value Reference Range Interpretation Comments Product name (test code Red Blood Cells -1, = 25) Leukored Unit number (test code = [id number] 7464652) Product code (test code O2658D46 = 3092) Dispense status (test Transfused code = 24) Blood expiration date (test code = 302) Blood type code (test code = 308) Blood type (test code = B POSITIVE 1314) Compatibility (test code Compatible = 6400) [facility] Vnrqy1710-31-35 22:22:00 Test Item Value Reference Range Interpretation Comments Product name (test code Red Blood Cells -1, = 25) Leukored Unit number (test code = [id number] 3740069) Product code (test code O9739L90 = 3092) Dispense status (test Transfused code = 24) Blood expiration date (test code = 302) Blood type code (test code = 308) Blood type (test code = B POSITIVE 1314) Compatibility (test code Compatible = 6400) [facility] 1 Rzjjq4843-68-07 22:22:00 Test Item Value Reference Range Interpretation Comments Product name (test code Red Blood Cells -1, = 25) Leukored Unit number (test code = [id number] 5764556) Product code (test code A0944G20 = 3092) Dispense status (test Transfused code = 24) Blood expiration date (test code = 302) Blood type code (test code = 308) Blood type (test code = B POSITIVE 1314) Compatibility (test code Compatible = 6400) [facility], 1 Eayri7572-96-75 22:22:00 Test Item Value Reference Range Interpretation Comments Product name (test code Red Blood Cells -1, = 25) Leukored Unit number (test code = [id number] 6128637) Product code (test code O1539V23 = 3092) Dispense status (test Transfused code = 24) Blood expiration date (test code = 302) Blood type code (test code = 308) Blood type (test code = B POSITIVE 1314) Compatibility (test code Compatible = 6400) [facility] 1 Jycae2603-84-20 22:22:00 Test Item Value Reference Range Interpretation Comments Product name (test code Red Blood Cells -1, = 25) Leukored Unit number (test code = [id number] 9766920) Product code (test code D5701C34 = 3092) Dispense status (test Transfused code = 24) Blood expiration date (test code = 302) Blood type code (test code = 308) Blood type (test code = B POSITIVE 1314) Compatibility (test code Compatible = 6400) [facility] RBC, 1 Kltcy9464-44-72 22:22:00 Test Item Value Reference Range Interpretation Comments Product name (test code Red Blood Cells -1, = 25) Leukored Unit number (test code = [id number] 4738504) Product code (test code Q6265D06 = 3092) Dispense status (test Transfused code = 24) Blood expiration date (test code = 302) Blood type code (test code = 308) Blood type (test code = B POSITIVE 1314) Compatibility (test code Compatible = 6400) [facility] RBC, 1 [id number] 22:22:00 Test Item Value Reference Range Interpretation Comments Product name (test code Red Blood Cells -1, = 25) Leukored Unit number (test code = [id number] 5273795) Product code (test code U1134B30 = 3092) Dispense status (test Transfused code = 24) Blood expiration date (test code = 302) Blood type code (test code = 308) Blood type (test code = B POSITIVE 1314) Compatibility (test code Compatible = 6400) [facility] RBC, 1 Jtgye6086-81-10 22:22:00 Test Item Value Reference Range Interpretation Comments Product name (test code Red Blood Cells -1, = 25) Leukored Unit number (test code = [id number] 5299106) Product code (test code O2851U22 = 3092) Dispense status (test Transfused code = 24) Blood expiration date (test code = 302) Blood type code (test code = 308) Blood type (test code = B POSITIVE 1314) Compatibility (test code Compatible = 6400) [facility] ddhvmiy3462-80-20 20:10:46 Test Item Value Reference Range Interpretation Comments Case number (test code = [id number]) Surgical pathology See link below for report (test code = PDF Lab Report 2255) Result status (test code This is Final Report = [id number]) for [address] pathology eapkfmt7835-35-33 20:10:46 Test Item Value Reference Range Interpretation Comments Case number (test code = [id number]) Surgical pathology See link below for report (test code = PDF Lab Report 2255) Result status (test code This is Final Report = 3052891) for [address] pathology whpwuax7281-40-26 20:10:46 Test Item Value Reference Range Interpretation Comments Case number (test code = [id number]) Surgical pathology See link below for report (test code = PDF Lab Report 2255) Result status (test code This is Final Report = 7378380) for [address] pathology aaeugqx4592-67-83 20:10:46 Test Item Value Reference Range Interpretation Comments Case number (test code = [id number]) Surgical pathology See link below for report (test code = PDF Lab Report 2255) Result status (test code This is Final Report = 1124908) for [address] pathology [id number] 20:10:46 Test Item Value Reference Range Interpretation Comments Case number (test code = [id number]) Surgical pathology See link below for report (test code = PDF Lab Report 2255) Result status (test code This is Final Report = 3789675) for [address] pathology wpytfym5011-06-87 20:10:46 Test Item Value Reference Range Interpretation Comments Case number (test code = [id number]) Surgical pathology See link below for report (test code = PDF Lab Report 2255) Result status (test code This is Final Report = 2934562) for [address] pathology [id number] 20:10:46 Test Item Value Reference Range Interpretation Comments Case number (test code = [id number]) Surgical pathology See link below for report (test code = PDF Lab Report 2255) Result status (test code This is Final Report = 0733821) for [id number] [place] [address] pathology [id number] 20:10:46 Test Item Value Reference Range Interpretation Comments Case number (test code = [id number]) Surgical pathology See link below for report (test code = PDF Lab Report 2255) Result status (test code This is Final Report = 5287198) for [address] pathology qhadurz0845-71-04 20:10:46 Test Item Value Reference Range Interpretation Comments Case number (test code = [id number]) Surgical pathology See link below for report (test code = PDF Lab Report 2255) Result status (test code This is Final Report = 6398014) for [address] pathology wdooitk9046-04-02 20:10:46 Test Item Value Reference Range Interpretation Comments Case number (test code = [id number]) Surgical pathology See link below for report (test code = PDF Lab Report 225) Result status (test code This is Final Report = 4988948) [facility] [address]heres[facility], 1 [id number] 15:35:00 Test Item Value Reference Range Interpretation Comments Product name (test code Platerick Henleyh LR, Path = 25) Red cont3 Unit number (test code = [id number] 8675263) Product code (test code J1887S65 = 3092) Dispense status (test Transfused code = 24) Blood expiration date (test code = 302) Blood type code (test code = 308) Blood type (test code = O POSITIVE 1314) Compatibility (test code Not required = 6400) [facility] 1 Ssfvo0155-76-75 15:35:00 Test Item Value Reference Range Interpretation Comments Product name (test code Platerick tAph LR, Path = 25) Red cont3 Unit number (test code = [id number] 9041053) Product code (test code N9794I69 = 3092) Dispense status (test Transfused code = 24) Blood expiration date (test code = 302) Blood type code (test code = 308) Blood type (test code = O POSITIVE 1314) Compatibility (test code Not required = 6400) [facility] [id number] 15:35:00 Test Item Value Reference Range Interpretation Comments Product name (test code Platerick tApgina LR, Path = 25) Red cont3 Unit number (test code = [id number] 8975352) Product code (test code G4248K95 = 3092) Dispense status (test Transfused code = 24) Blood expiration date (test code = 302) Blood type code (test code = 308) Blood type (test code = O POSITIVE 1314) Compatibility (test code Not required = 6400) [facility], 1 Igivi6177-73-41 15:35:00 Test Item Value Reference Range Interpretation Comments Product name (test code Platerick Fraire LR, Path = 25) Red cont3 Unit number (test code = [id number] 3983157) Product code (test code C5547H22 = 3092) Dispense status (test Transfused code = 24) Blood expiration date (test code = 302) Blood type code (test code = 308) Blood type (test code = O POSITIVE 1314) Compatibility (test code Not required = 6400) [facility], 1 Rhhyl6912-50-74 15:35:00 Test Item Value Reference Range Interpretation Comments Product name (test code Platerick Fraire LR, Path = 25) Red cont3 Unit number (test code = [id number] 8688689) Product code (test code J4393L75 = 3092) Dispense status (test Transfused code = 24) Blood expiration date (test code = 302) Blood type code (test code = 308) Blood type (test code = O POSITIVE 1314) Compatibility (test code Not required = 6400) [facility], 1 Whvxz5338-86-45 15:35:00 Test Item Value Reference Range Interpretation Comments Product name (test code Platerick tApgina LR, Path = 25) Red cont3 Unit number (test code = [id number] 7145148) Product code (test code K6530V08 = 3092) Dispense status (test Transfused code = 24) Blood expiration date (test code = 302) Blood type code (test code = 308) Blood type (test code = O POSITIVE 1314) Compatibility (test code Not required = 6400) [facility], 1 Yakjx2340-22-86 15:35:00 Test Item Value Reference Range Interpretation Comments Product name (test code Bogdan Fraire LR, Path = 25) Red cont3 Unit number (test code = [id number] 5384394) Product code (test code G0088P45 = 3092) Dispense status (test Transfused code = 24) Blood expiration date (test code = 302) Blood type code (test code = 308) Blood type (test code = O POSITIVE 1314) Compatibility (test code Not required = 6400) [facility], 1 Wouwj7286-88-42 15:35:00 Test Item Value Reference Range Interpretation Comments Product name (test code Bogdan Fraire LR, Path = 25) Red cont3 Unit number (test code = [id number] 7442842) Product code (test code A1378A91 = 3092) Dispense status (test Transfused code = 24) Blood expiration date (test code = 302) Blood type code (test code = 308) Blood type (test code = O POSITIVE 1314) Compatibility (test code Not required = 6400) [facility], 1 Uaphs7290-07-16 15:35:00 Test Item Value Reference Range Interpretation Comments Product name (test code Bogdan Fraire LR, Path = 25) Red cont3 Unit number (test code = [id number] 6780161) Product code (test code X8069U49 = 3092) Dispense status (test Transfused code = 24) Blood expiration date (test code = 302) Blood type code (test code = 308) Blood type (test code = O POSITIVE 1314) Compatibility (test code Not required = 6400) [facility], 1 Kvxvo0555-43-26 15:35:00 Test Item Value Reference Range Interpretation Comments Product name (test code Platerick Fraire LR, Path = 25) Red cont3 Unit number (test code = [id number] 4901533) Product code (test code X7342H69 = 3092) Dispense status (test Transfused code = 24) Blood expiration date (test code = 302) Blood type code (test code = 308) Blood type (test code = O POSITIVE 1314) Compatibility (test code Not required = 6400) [facility] xhvz5975-95-11 12:13:24 Test Item Value Reference Range Interpretation Comments Activated clotting time See_Comment H Oper ator Name: (test code = 5298) Bryn Denny norbertoeaDevice ID: [id number] [Automated mess age] The system whic h generated this result transmitted ref erence range: 96 - 152 sec. The reference r leo was not used to interpret this result as normal/abnor mal. Lab Interpretation (test Abnormal code = 42442-4) [facility] lcna3976-93-49 12:13:24 Test Item Value Reference Range Interpretation Comments Activated clotting time See_Comment H Oper ator Name: (test code = 5298) Bryn Denny eneaDevice ID: [id number] [Automated mess age] The system [facility] h generated this result transmitted ref erence range: 96 - 152 sec. The reference r leo was not used to interpret this result as normal/abnor mal. Lab Interpretation (test Abnormal code = 47314-2) [facility] usce1883-58-78 12:13:24 Test Item Value Reference Range Interpretation Comments Activated clotting time See_Comment H Oper ator Name: (test code = 5298) Bryn Denny norbertoeaDevice ID: [id number] [Automated mess age] The system [facility] h generated this result transmitted ref erence range: 96 - 152 sec. The reference r leo was not used to interpret this result as normal/abnor mal. Lab Interpretation (test Abnormal code = 87483-3) [facility] schh3570-12-95 12:13:24 Test Item Value Reference Range Interpretation Comments Activated clotting time See_Comment H Oper ator Name: (test code = 5298) Bryn Denny eneaDevice ID: [id number] [Automated mess age] The system whic h generated this result transmitted ref erence range: 96 - 152 sec. The reference r leo was not used to interpret this result as normal/abnor mal. Lab Interpretation (test Abnormal code = 45548-7) [facility] xbxm1928-36-24 12:13:24 Test Item Value Reference Range Interpretation Comments Activated clotting time See_Comment H Oper ator Name: (test code = 5298) Bryn R eneaDevice ID: [id number] [Automated mess age] The system [facility] h generated this result transmitted ref erence range: 96 - 152 sec. The reference r leo was not used to interpret this result as normal/abnor mal. Lab Interpretation (test Abnormal code = 10847-3) [facility] [id number] 12:13:24 Test Item Value Reference Range Interpretation Comments Activated clotting time See_Comment H Oper ator Name: (test code = 5298) Bryn R eneaDevice ID: [id number] [Automated mess age] The system [employer] generated this result transmitted ref erence range: 96 - 152 sec. The reference r leo was not used to interpret this result as normal/abnor mal. Lab Interpretation (test Abnormal code = 50603-6) [facility] [id number] 12:13:24 Test Item Value Reference Range Interpretation Comments Activated clotting time See_Comment H Oper ator Name: (test code = 5298) Bryn R eneaDevice ID: [id number] [Automated mess age] The system [employer] generated this result transmitted ref erence range: 96 - 152 sec. The reference r leo was not used to interpret this result as normal/abnor mal. Lab Interpretation (test Abnormal code = 93506-5) [facility] [id number] 12:13:24 Test Item Value Reference Range Interpretation Comments Activated clotting time See_Comment H Oper ator Name: (test code = 5298) Bryn R eneaDevice ID: [id number] [Automated mess age] The system [employer] generated this result transmitted ref erence range: 96 - 152 sec. The reference r leo was not used to interpret this result as normal/abnor mal. Lab Interpretation (test Abnormal code = 36792-4) [facility] xvmq9548-13-41 12:13:24 Test Item Value Reference Range Interpretation Comments Activated clotting time See_Comment H Oper ator Name: (test code = 5298) Bryn Sj eneaDevice ID: [id number] [Automated mess age] The system [employer] generated this result transmitted ref erence range: 96 - 152 sec. The reference r leo was not used to interpret this result as normal/abnor mal. Lab Interpretation (test Abnormal code = 22025-7) [facility] jxtz7637-30-28 12:13:24 Test Item Value Reference Range Interpretation Comments Activated clotting time See_Comment H Oper ator Name: (test code = 5298) Bryn Denny Carmen ID: [id number] [Automated mess age] The system [employer] generated this result transmitted ref erence range: 96 - 152 sec. The reference r leo was not used to interpret this result as normal/abnor mal. Lab Interpretation (test Abnormal code = 59704-9) [facility] mugtc3234-58-41 14:37:48 Test Item Value Reference Range Interpretation Comments POC sodium (test code = 138 mmol/L 430-983 7775-0) POC potassium (test 5.5 mmol/L 3.5-5 H code = 6298-4) POC glucose (test code 295 mg/dL 65-99 H = 2339-0) POC creatinine (test 5.3 mg/dl 0.5-0.9 H Operato r Name: Pugne code = 18396-8) AilWinstone ID: [id number] POC hemoglobin (test 18.4 g/dL 12-16 H code = 718-7) POC hematocrit (test 54 % 37-47 H code = 4544-3) Lab Interpretation Abnormal (test code = 78341-8) [facility] dhnrv4548-54-34 14:37:48 Test Item Value Reference Range Interpretation Comments POC sodium (test code = 138 mmol/L 130-923 0148-0) POC potassium (test 5.5 mmol/L 3.5-5 H code = 6298-4) POC glucose (test code 295 mg/dL 65-99 H = 2339-0) POC creatinine (test 5.3 mg/dl 0.5-0.9 H Operato r Name: Pugne code = 64570-8) AileenDevice ID: [id number] POC hemoglobin (test 18.4 g/dL 12-16 H code = 718-7) POC hematocrit (test 54 % 37-47 H code = 4544-3) Lab Interpretation Abnormal (test code = 37267-2) [facility]2021-11-29 14:37:48 Test Item Value Reference Range Interpretation Comments POC sodium (test code = 138 mmol/L 051-494 2925-0) POC potassium (test 5.5 mmol/L 3.5-5 H code = 6298-4) POC glucose (test code 295 mg/dL 65-99 H = 2339-0) POC creatinine (test 5.3 mg/dl 0.5-0.9 H Operato r Name: Pugne code = 38891-4) AileenDevice ID: [id number] POC hemoglobin (test 18.4 g/dL 12-16 H code = 718-7) POC hematocrit (test 54 % 37-47 H code = 4544-3) Lab Interpretation Abnormal (test code = 54890-8) [facility]2021-11-29 14:37:48 Test Item Value Reference Range Interpretation Comments POC sodium (test code = 138 mmol/L 097-769 9756-0) POC potassium (test 5.5 mmol/L 3.5-5 H code = 6298-4) POC glucose (test code 295 mg/dL 65-99 H = 2339-0) POC creatinine (test 5.3 mg/dl 0.5-0.9 H Operato r Name: Pugne code = 31656-2) [employer]ileenDevice ID: [id number] POC hemoglobin (test 18.4 g/dL 12-16 H code = 718-7) POC hematocrit (test 54 % 37-47 H code = 4544-3) Lab Interpretation Abnormal (test code = 32421-8) [place] 363781-11-29 14:37:48 Test Item Value Reference Range Interpretation Comments POC sodium (test code = 138 mmol/L 734-394 8033-0) POC potassium (test 5.5 mmol/L 3.5-5 H code = 6298-4) POC glucose (test code 295 mg/dL 65-99 H = 2339-0) POC creatinine (test 5.3 mg/dl 0.5-0.9 H Operato r Name: Pugne code = 72702-8) [employer]ileenDevice ID: [id number] POC hemoglobin (test 18.4 g/dL 12-16 H code = 718-7) POC hematocrit (test 54 % 37-47 H code = 4544-3) Lab Interpretation Abnormal (test code = 08859-3) [facility]2021-11-29 14:37:48 Test Item Value Reference Range Interpretation Comments POC sodium (test code = 138 mmol/L 210-672 0683-0) POC potassium (test 5.5 mmol/L 3.5-5.0 H code = 6298-4) POC glucose (test code 295 mg/dL 65-99 H = 2339-0) POC creatinine (test 5.3 mg/dl 0.5-0.9 H Operato r Name: Johannae code = 99497-0) AiljoshDevice ID: [id number] POC hemoglobin (test 18.4 g/dL 12.0-16.0 H code = 718-7) POC hematocrit (test 54 % 37-47 H code = 4544-3) Lab Interpretation Abnormal (test code = 88110-8) [facility]2021-11-29 14:37:48 Test Item Value Reference Range Interpretation Comments POC sodium (test code = 138 mmol/L 717-435 3213-0) POC potassium (test 5.5 mmol/L 3.5-5.0 H code = 6298-4) POC glucose (test code 295 mg/dL 65-99 H = 2339-0) POC creatinine (test 5.3 mg/dl 0.5-0.9 H Operato r Name: Johannae code = 93472-2) AiljoshDevice ID: [id number] POC hemoglobin (test 18.4 g/dL 12.0-16.0 H code = 718-7) POC hematocrit (test 54 % 37-47 H code = 4544-3) Lab Interpretation Abnormal (test code = 42836-7) [facility]2021-11-29 14:37:48 Test Item Value Reference Range Interpretation Comments POC sodium (test code = 138 mmol/L 702-358 0190-0) POC potassium (test 5.5 mmol/L 3.5-5 H code = 6298-4) POC glucose (test code 295 mg/dL 65-99 H = 2339-0) POC creatinine (test 5.3 mg/dl 0.5-0.9 H Operato r Name: Pugne code = 72580-3) AileenDevice ID: [id number] POC hemoglobin (test 18.4 g/dL 12-16 H code = 718-7) POC hematocrit (test 54 % 37-47 H code = 4544-3) Lab Interpretation Abnormal (test code = 28658-0) [facility] ajcbt4158-15-05 14:37:48 Test Item Value Reference Range Interpretation Comments POC sodium (test code = 138 mmol/L 616-281 7826-0) POC potassium (test 5.5 mmol/L 3.5-5 H code = 6298-4) POC glucose (test code 295 mg/dL 65-99 H = 2339-0) POC creatinine (test 5.3 mg/dl 0.5-0.9 H Operato r Name: Johannae code = 55247-9) AileenDevice ID: [id number] POC hemoglobin (test 18.4 g/dL 12-16 H code = 718-7) POC hematocrit (test 54 % 37-47 H code = 4544-3) Lab Interpretation Abnormal (test code = 92061-0) [facility] [id number] 14:37:48 Test Item Value Reference Range Interpretation Comments POC sodium (test code = 138 mmol/L 081-364 5499-0) POC potassium (test 5.5 mmol/L 3.5-5 H code = 6298-4) POC glucose (test code 295 mg/dL 65-99 H = 2339-0) POC creatinine (test 5.3 mg/dl 0.5-0.9 H Operato r Name: Johannae code = 74858-3) AileenDevice ID: [id number] POC hemoglobin (test 18.4 g/dL 12-16 H code = 718-7) POC hematocrit (test 54 % 37-47 H code = 4544-3) Lab Interpretation Abnormal (test code = 25501-4) 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 (test code = 88020-4) Whether the patient has symptoms related to condition of interest (test code = 39735-2) Patient was hospitalized because of this condition (test code = 77840-5) Whether the patient was admitted to intensive care unit (ICU) for condition of interest (test code = 51955-6) Whether patient resides in a congregate care setting (test code = 55509-5) [facility]2021-08-11 08:17:00 Test Item Value Reference Range Interpretation Comments Glucose Lvl (test code = Glucose Lvl) 94 70-99 [facility]2021-08-11 08:17:00 Test Item Value Reference Range Interpretation Comments BUN (test code = BUN) 27 7-22 [place] 799311-08-11 08:17:00 Test Item Value Reference Range Interpretation Comments Creatinine Lvl (test code = Creatinine 4.95 0.50-1.40 Lvl) [place] 799311-08-11 08:17:00 Test Item Value Reference Range Interpretation Comments Sodium Lvl (test code = Sodium Lvl) 136 135-145 [place] 799311-08-11 08:17:00 Test Item Value Reference Range Interpretation Comments Potassium Lvl (test code = Potassium 3.9 3.5-5.1 Lvl) [place] 799311-08-11 08:17:00 Test Item Value Reference Range Interpretation Comments Chloride Lvl (test code = Chloride Lvl) 103 95-109 [place] 799311-08-11 08:17:00 Test Item Value Reference Range Interpretation Comments CO2 (test code = CO2) 30 24-32 [place] 799311-08-11 08:17:00 Test Item Value Reference Range Interpretation Comments AGAP (test code = AGAP) 6.9 10.0-20.0 [place] 799311-08-11 08:17:00 Test Item Value Reference Range Interpretation Comments Calcium Lvl (test code = Calcium Lvl) 8.5 8.5-10.5 [place] 799311-08-11 08:17:00 Test Item Value Reference Range Interpretation Comments eGFR (test code = eGFR) 10 [facility] [id number] 08:17:00 Test Item Value Reference Range Interpretation Comments Phosphorus (test code = Phosphorus) 3.0 2.5-4.5 [facility] [id number] 08:17:00 Test Item Value Reference Range Interpretation Comments Magnesium Lvl (test code = Magnesium 2.4 1.8-2.4 Lvl) [facility] 08:17:00 Test Item Value Reference Range Interpretation Comments WBC (test code = WBC) 2.3 3.7-10.4 [place] 799751-08-11 08:17:00 Test Item Value Reference Range Interpretation Comments RBC (test code = RBC) 2.65 4.20-5.40 [place] 799751-08-11 08:17:00 Test Item Value Reference Range Interpretation Comments Hgb (test code = Hgb) 7.9 12.0-16.0 [place] 799751-08-11 08:17:00 Test Item Value Reference Range Interpretation Comments Hct (test code = Hct) 24.0 36.0-48.0 [facility]hhqmwnLZCOBZRVSL0028-14-75 08:17:00 Test Item Value Reference Range Interpretation Comments MCV (test code = MCV) 90.6 80.0-98.0 [facility]IvtqhkoIWGYSAZHJY5674-28-08 08:17:00 Test Item Value Reference Range Interpretation Comments MCH (test code = MCH) 29.7 pg 27.0-31.0 [place] 799751-08-11 08:17:00 Test Item Value Reference Range Interpretation Comments MCHC (test code = MCHC) 32.7 32.0-36.0 [place] 799751-08-11 08:17:00 Test Item Value Reference Range Interpretation Comments RDW (test code = RDW) 19.1 11.5-14.5 [place] 799751-08-11 08:17:00 Test Item Value Reference Range Interpretation Comments Platelet (test code = Platelet) 71 133-450 [place] 799751-08-11 08:17:00 Test Item Value Reference Range Interpretation Comments MPV (test code = MPV) 9.9 7.4-10.4 [place] 799751-08-11 08:17:00 Test Item Value Reference Range Interpretation Comments Segs (test code = Segs) 56.1 45.0-75.0 [place] 799751-08-11 08:17:00 Test Item Value Reference Range Interpretation Comments Lymphocytes (test code = Lymphocytes) 28.9 20.0-40.0 [place] 799751-08-11 08:17:00 Test Item Value Reference Range Interpretation Comments Monocytes (test code = Monocytes) 8.1 2.0-12.0 [place] 799751-08-11 08:17:00 Test Item Value Reference Range Interpretation Comments Eosinophils (test code = 5.9 See_Comment [A utomated message] The Eosinophils) system which ge nerated this result tra nsmitted reference range : <=4.0. The reference r leo was not used to int erpret this result as normal/abnormal . [place] 799751-08-11 08:17:00 Test Item Value Reference Range Interpretation Comments Basophils (test code = 1.0 See_Comment [Aut omated message] The Basophils) system which ge nerated this result tra nsmitted reference range : <=1.0. The reference r leo was not used to int erpret this result as normal/abnormal . [facility]XmdnczsQCXRSYBFPJ3775-24-19 08:17:00 Test Item Value Reference Range Interpretation Comments Neutrophils # (test code = Neutrophils 1.3 1.5-8.1 #) [facility] WestSmxyzkoUERLCSBEUZ0052-47-37 08:17:00 Test Item Value Reference Range Interpretation Comments Lymphocytes # (test code = Lymphocytes 0.7 1.0-5.5 #) [place] 799751-08-11 08:17:00 Test Item Value Reference Range Interpretation Comments Monocytes # (test code 0.2 See_Comment [Aut omated message] The = Monocytes #) system which generated this result tra nsmitted reference range : <=0.8. The reference r leo was not used to int erpret this result as normal/abnormal . [facility] WestTpluxmxQUWORTZSKK1584-56-48 08:17:00 Test Item Value Reference Range Interpretation Comments Eosinophils # (test code 0.1 See_Comment [A utomated message] The = Eosinophils #) system whic h generated this result tra nsmitted reference range : <=0.5. The reference r leo was not used to int erpret this result as normal/abnormal . [place] 799311-08-10 09:30:00 Test Item Value Reference Range Interpretation Comments Glucose Lvl (test code = Glucose Lvl) 61 70-99 [place] 799311-08-10 09:30:00 Test Item Value Reference Range Interpretation Comments BUN (test code = BUN) 13 7-22 [place] 799311-08-10 09:30:00 Test Item Value Reference Range Interpretation Comments Creatinine Lvl (test code = Creatinine 3.71 0.50-1.40 Lvl) [place] 799311-08-10 09:30:00 Test Item Value Reference Range Interpretation Comments Sodium Lvl (test code = Sodium Lvl) 136 135-145 [place] 799311-08-10 09:30:00 Test Item Value Reference Range Interpretation Comments Potassium Lvl (test code = Potassium 4.3 3.5-5.1 Lvl) [facility]2021-08-10 09:30:00 Test Item Value Reference Range Interpretation Comments Chloride Lvl (test code = Chloride Lvl) 103 95-109 [place] 799311-08-10 09:30:00 Test Item Value Reference Range Interpretation Comments CO2 (test code = CO2) 27 24-32 [place] 799311-08-10 09:30:00 Test Item Value Reference Range Interpretation Comments Calcium Lvl (test code = Calcium Lvl) 7.9 8.5-10.5 [place] 799311-08-10 09:30:00 Test Item Value Reference Range Interpretation Comments AGAP (test code = AGAP) 10.3 10.0-20.0 [place] 799311-08-10 09:30:00 Test Item Value Reference Range Interpretation Comments eGFR (test code = eGFR) 15 [place] 799311-08-10 09:30:00 Test Item Value Reference Range Interpretation Comments Magnesium Lvl (test code = Magnesium 2.3 1.8-2.4 Lvl) [place] 799311-08-10 09:30:00 Test Item Value Reference Range Interpretation Comments Phosphorus (test code = Phosphorus) 3.1 2.5-4.5 [facility] WestJikytroEMDCEBFDGY2251-32-06 09:30:00 Test Item Value Reference Range Interpretation Comments Segs (test code = Segs) 61.5 45.0-75.0 [facility] WestWsjzqpsSLQNKKKTWX4359-86-26 09:30:00 Test Item Value Reference Range Interpretation Comments Lymphocytes (test code = Lymphocytes) 24.6 20.0-40.0 [place] 799751-08-10 09:30:00 Test Item Value Reference Range Interpretation Comments Monocytes (test code = Monocytes) 7.4 2.0-12.0 [place] 799751-08-10 09:30:00 Test Item Value Reference Range Interpretation Comments Eosinophils (test code = 5.5 See_Comment [A utomated message] The Eosinophils) system which ge nerated this result tra nsmitted reference range : <=4.0. The reference r leo was not used to int erpret this result as normal/abnormal . [facility] WestOdqgwpwUIDNGEZUZR0835-47-07 09:30:00 Test Item Value Reference Range Interpretation Comments Basophils (test code = 1.0 See_Comment [Aut omated message] The Basophils) system which ge nerated this result tra nsmitted reference range : <=1.0. The reference r leo was not used to int erpret this result as normal/abnormal . [facility] WestUijuiooQNAZCOSTEJ2629-65-25 09:30:00 Test Item Value Reference Range Interpretation Comments Neutrophils # (test code = Neutrophils 1.6 1.5-8.1 #) [facility] WestOjrryplJKQUNBVRQL9239-62-23 09:30:00 Test Item Value Reference Range Interpretation Comments Lymphocytes # (test code = Lymphocytes 0.6 1.0-5.5 #) [place] 799751-08-10 09:30:00 Test Item Value Reference Range Interpretation Comments Monocytes # (test code 0.2 See_Comment [Aut omated message] The = Monocytes #) system which generated this result tra nsmitted reference range : <=0.8. The reference r leo was not used to int erpret this result as normal/abnormal . [place] 799751-08-10 09:30:00 Test Item Value Reference Range Interpretation Comments Eosinophils # (test code 0.1 See_Comment [A utomated message] The = Eosinophils #) system [employer] generated this result tra nsmitted reference range : <=0.5. The reference r leo was not used to int erpret this result as normal/abnormal . [facility] WestAokbvlkONJPERBGWT0011-41-16 09:30:00 Test Item Value Reference Range Interpretation [...] studies, if clinically indicated, are recommended. CPT: 72044 [place] 799751-08-10 09:30:00 Test Item Value Reference Range Interpretation Comments WBC (test code = WBC) 2.5 3.7-10.4 [place] 799751-08-10 09:30:00 Test Item Value Reference Range Interpretation Comments RBC (test code = RBC) 2.68 4.20-5.40 [place] 799751-08-10 09:30:00 Test Item Value Reference Range Interpretation Comments Hgb (test code = Hgb) 8.2 12.0-16.0 [place] [address]-08-10 09:30:00 Test Item Value Reference Range Interpretation Comments Hct (test code = Hct) 24.3 36.0-48.0 [place] [address]-08-10 09:30:00 Test Item Value Reference Range Interpretation Comments MCV (test code = MCV) 90.9 80.0-98.0 [place] [address]-08-10 09:30:00 Test Item Value Reference Range Interpretation Comments MCH (test code = MCH) 30.5 pg 27.0-31.0 [place] [address]-08-10 09:30:00 Test Item Value Reference Range Interpretation Comments MCHC (test code = MCHC) 33.6 32.0-36.0 [place] [address]-08-10 09:30:00 Test Item Value Reference Range Interpretation Comments RDW (test code = RDW) 19.4 11.5-14.5 [place] 799751-08-10 09:30:00 Test Item Value Reference Range Interpretation Comments Platelet (test code = Platelet) 70 133-450 [facility] WestQucncbiZVEBSTLEGH3557-23-85 09:30:00 Test Item Value Reference Range Interpretation Comments MPV (test code = MPV) 10.7 7.4-10.4 [place] 799311-08-09 05:10:00 Test Item Value Reference Range Interpretation Comments Glucose Lvl (test code = Glucose Lvl) 69 70-99 [place] 799311-08-09 05:10:00 Test Item Value Reference Range Interpretation Comments BUN (test code = BUN) 29 7-22 [place] 799311-08-09 05:10:00 Test Item Value Reference Range Interpretation Comments Creatinine Lvl (test code = Creatinine 5.14 0.50-1.40 Lvl) [place] 799311-08-09 05:10:00 Test Item Value Reference Range Interpretation Comments Sodium Lvl (test code = Sodium Lvl) 134 135-145 [place] 799311-08-09 05:10:00 Test Item Value Reference Range Interpretation Comments Potassium Lvl (test code = Potassium 5.1 3.5-5.1 Lvl) [facility]2021-08-09 05:10:00 Test Item Value Reference Range Interpretation Comments Chloride Lvl (test code = Chloride Lvl) 98 95-109 [facility]2021-08-09 05:10:00 Test Item Value Reference Range Interpretation Comments CO2 (test code = CO2) 29 24-32 [facility]2021-08-09 05:10:00 Test Item Value Reference Range Interpretation Comments Calcium Lvl (test code = Calcium Lvl) 7.6 8.5-10.5 [facility]2021-08-09 05:10:00 Test Item Value Reference Range Interpretation Comments AGAP (test code = AGAP) 12.1 10.0-20.0 [place] 799311-08-09 05:10:00 Test Item Value Reference Range Interpretation Comments eGFR (test code = eGFR) 10 [place] 799311-08-09 05:10:00 Test Item Value Reference Range Interpretation Comments Magnesium Lvl (test code = Magnesium 2.3 1.8-2.4 Lvl) [facility]2021-08-09 05:10:00 Test Item Value Reference Range Interpretation Comments Phosphorus (test code = Phosphorus) 5.0 2.5-4.5 [facility] WestZmrdrjrDBJFVSOHDV0043-26-74 05:10:00 Test Item Value Reference Range Interpretation Comments WBC (test code = WBC) 2.7 3.7-10.4 [facility] WestUdqijdfHXZVPYVKZR2690-84-33 05:10:00 Test Item Value Reference Range Interpretation Comments RBC (test code = RBC) 2.80 4.20-5.40 [facility] WestZsbcoxvTYGIASEVPQ5868-30-36 05:10:00 Test Item Value Reference Range Interpretation Comments Hgb (test code = Hgb) 8.5 12.0-16.0 [place] 799751-08-09 05:10:00 Test Item Value Reference Range Interpretation Comments Hct (test code = Hct) 25.7 36.0-48.0 [facility] WestWlbqbnsACLKRJYIGF7029-39-01 05:10:00 Test Item Value Reference Range Interpretation Comments MCV (test code = MCV) 91.7 80.0-98.0 [place] 799751-08-09 05:10:00 Test Item Value Reference Range Interpretation Comments MCH (test code = MCH) 30.4 pg 27.0-31.0 [facility] WestLdojaxdBYAKYQCGZV8233-75-95 05:10:00 Test Item Value Reference Range Interpretation Comments MCHC (test code = MCHC) 33.1 32.0-36.0 [facility] WestKszkfcbSUBEYZXEXI7858-94-38 05:10:00 Test Item Value Reference Range Interpretation Comments RDW (test code = RDW) 19.2 11.5-14.5 [place] 799751-08-09 05:10:00 Test Item Value Reference Range Interpretation Comments Platelet (test code = Platelet) 72 133-450 [facility] WestBbzhpkcKWAAUGXUTD1372-80-19 05:10:00 Test Item Value Reference Range Interpretation Comments MPV (test code = MPV) 9.9 7.4-10.4 [place] 799751-08-09 05:10:00 Test Item Value Reference Range Interpretation Comments Segs (test code = Segs) 72.6 45.0-75.0 [facility] WestAkycrapDKAQKKZTPZ9848-46-64 05:10:00 Test Item Value Reference Range Interpretation Comments Lymphocytes (test code = Lymphocytes) 15.9 20.0-40.0 [facility] WestHrvamvrCBOJBRDSGN9243-96-92 05:10:00 Test Item Value Reference Range Interpretation Comments Monocytes (test code = Monocytes) 7.3 2.0-12.0 [facility] WestOkkgjzfFOYEIBFSEN0093-54-03 05:10:00 Test Item Value Reference Range Interpretation Comments Eosinophils (test code = 3.4 See_Comment [A utomated message] The Eosinophils) system which ge nerated this result tra nsmitted reference range : <=4.0. The reference r leo was not used to int erpret this result as normal/abnormal . [facility] WestUdgldlsOMHHBQNZOF1919-68-64 05:10:00 Test Item Value Reference Range Interpretation Comments Basophils (test code = 0.8 See_Comment [Aut omated message] The Basophils) system which ge nerated this result tra nsmitted reference range : <=1.0. The reference r leo was not used to int erpret this result as normal/abnormal . [facility] WestPdwcnheRUYNKZBLZQ0828-04-40 05:10:00 Test Item Value Reference Range Interpretation Comments Neutrophils # (test code = Neutrophils 1.9 1.5-8.1 #) [facility] WestQmwylxzBPPHDHZEIK4083-21-08 05:10:00 Test Item Value Reference Range Interpretation Comments Lymphocytes # (test code = Lymphocytes 0.4 1.0-5.5 #) [facility] WestGddjvscVNWVZFJMXU1241-06-90 05:10:00 Test Item Value Reference Range Interpretation Comments Monocytes # (test code 0.2 See_Comment [Aut omated message] The = Monocytes #) system which generated this result tra nsmitted reference range : <=0.8. The reference r leo was not used to int erpret this result as normal/abnormal . [facility] WestBfyckeiJMPTKBIVQM9389-38-51 05:10:00 Test Item Value Reference Range Interpretation Comments Eosinophils # (test code 0.1 See_Comment [A utomated message] The = Eosinophils #) system whic h generated this result tra nsmitted reference range : <=0.5. The reference r leo was not used to int erpret this result as normal/abnormal . [facility]2021-08-09 05:10:00 Test Item Value Reference Range Interpretation Comments Ca Ion WB (test code = Ca Ion WB) 1.10 1.05-1.25 [facility]2021-08-09 05:10:00 Test Item Value Reference Range Interpretation Comments Ca Norm WB (test code = Ca Norm WB) 1.06 1.05-1.25 [facility] 18:36:00 Test Item Value Reference Range Interpretation Comments C difficile DNA (test Negative (01/26/21 1:36 code = C difficile DNA) PM) [facility]2021-08-08 07:33:00 Test Item Value Reference Range Interpretation Comments Ca Ion WB (test code = Ca Ion WB) 1.12 1.05-1.25 [place] 613101-08-08 07:33:00 Test Item Value Reference Range Interpretation Comments Ca Norm WB (test code = Ca Norm WB) 1.07 1.05-1.25 [facility]2021-08-08 07:30:00 Test Item Value Reference Range Interpretation Comments Glucose Lvl (test code = Glucose Lvl) 65 70-99 [facility]2021-08-08 07:30:00 Test Item Value Reference Range Interpretation Comments BUN (test code = BUN) 21 7-22 [facility]2021-08-08 07:30:00 Test Item Value Reference Range Interpretation Comments Creatinine Lvl (test code = Creatinine 4.18 0.50-1.40 Lvl) [facility]2021-08-08 07:30:00 Test Item Value Reference Range Interpretation Comments Sodium Lvl (test code = Sodium Lvl) 136 135-145 [facility]2021-08-08 07:30:00 Test Item Value Reference Range Interpretation Comments Potassium Lvl (test code = Potassium 4.5 3.5-5.1 Lvl) [facility]2021-08-08 07:30:00 Test Item Value Reference Range Interpretation Comments Chloride Lvl (test code = Chloride Lvl) 99 95-109 [place] 799311-08-08 07:30:00 Test Item Value Reference Range Interpretation Comments CO2 (test code = CO2) 31 24-32 [place] 799311-08-08 07:30:00 Test Item Value Reference Range Interpretation Comments AGAP (test code = AGAP) 10.5 10.0-20.0 [place] 7[address]-08-08 07:30:00 Test Item Value Reference Range Interpretation Comments Calcium Lvl (test code = Calcium Lvl) 7.9 8.5-10.5 [place] 799311-08-08 07:30:00 Test Item Value Reference Range Interpretation Comments eGFR (test code = eGFR) 13 [place] 799311-08-08 07:30:00 Test Item Value Reference Range Interpretation Comments Magnesium Lvl (test code = Magnesium 2.2 1.8-2.4 Lvl) [place] 799311-08-08 07:30:00 Test Item Value Reference Range Interpretation Comments Phosphorus (test code = Phosphorus) 4.4 2.5-4.5 [place] 799751-08-08 07:30:00 Test Item Value Reference Range Interpretation Comments WBC (test code = WBC) 2.3 3.7-10.4 [place] 799751-08-08 07:30:00 Test Item Value Reference Range Interpretation Comments RBC (test code = RBC) 2.88 4.20-5.40 [place] 799751-08-08 07:30:00 Test Item Value Reference Range Interpretation Comments Hgb (test code = Hgb) 8.6 12.0-16.0 [place] 799751-08-08 07:30:00 Test Item Value Reference Range Interpretation Comments Hct (test code = Hct) 26.6 36.0-48.0 [place] [address]-08-08 07:30:00 Test Item Value Reference Range Interpretation Comments MCV (test code = MCV) 92.2 80.0-98.0 [place] [address]-08-08 07:30:00 Test Item Value Reference Range Interpretation Comments MCH (test code = MCH) 29.8 pg 27.0-31.0 [place] [address]-08-08 07:30:00 Test Item Value Reference Range Interpretation Comments MCHC (test code = MCHC) 32.4 32.0-36.0 [place] [address]-08-08 07:30:00 Test Item Value Reference Range Interpretation Comments RDW (test code = RDW) 19.7 11.5-14.5 [place] 799751-08-08 07:30:00 Test Item Value Reference Range Interpretation Comments Platelet (test code = Platelet) 83 133-450 [place] 799751-08-08 07:30:00 Test Item Value Reference Range Interpretation Comments MPV (test code = MPV) 10.2 7.4-10.4 [place] 799751-08-08 07:30:00 Test Item Value Reference Range Interpretation Comments Segs (test code = Segs) 64.0 45.0-75.0 [place] 799751-08-08 07:30:00 Test Item Value Reference Range Interpretation Comments Lymphocytes (test code = Lymphocytes) 24.1 20.0-40.0 [place] 799751-08-08 07:30:00 Test Item Value Reference Range Interpretation Comments Monocytes (test code = Monocytes) 7.0 2.0-12.0 [facility]QdwiqawANNNIKVKCF6165-84-68 07:30:00 Test Item Value Reference Range Interpretation Comments Eosinophils (test code = 3.7 See_Comment [A utomated message] The Eosinophils) system which ge nerated this result tra nsmitted reference range : <=4.0. The reference r leo was not used to int erpret this result as normal/abnormal . [place] 799751-08-08 07:30:00 Test Item Value Reference Range Interpretation Comments Basophils (test code = 1.2 See_Comment [Aut omated message] The Basophils) system which ge nerated this result tra nsmitted reference range : <=1.0. The reference r leo was not used to int erpret this result as normal/abnormal . [place] 799751-08-08 07:30:00 Test Item Value Reference Range Interpretation Comments Neutrophils # (test code = Neutrophils 1.5 1.5-8.1 #) [facility] WestEqxftkpGOMTMMKQUS7259-92-61 07:30:00 Test Item Value Reference Range Interpretation Comments Lymphocytes # (test code = Lymphocytes 0.6 1.0-5.5 #) [place] 799751-08-08 07:30:00 Test Item Value Reference Range Interpretation Comments Monocytes # (test code 0.2 See_Comment [Aut omated message] The = Monocytes #) system which generated this result tra nsmitted reference range : <=0.8. The reference r leo was not used to int erpret this result as normal/abnormal . [place] 799751-08-08 07:30:00 Test Item Value Reference Range Interpretation Comments Eosinophils # (test code 0.1 See_Comment [A utomated message] The = Eosinophils #) system whic h generated this result tra nsmitted reference range : <=0.5. The reference r leo was not used to int erpret this result as normal/abnormal . [place] 799311-08-07 09:32:00 Test Item Value Reference Range Interpretation Comments Glucose Lvl (test code = Glucose Lvl) 59 70-99 [place] 799311-08-07 09:32:00 Test Item Value Reference Range Interpretation Comments BUN (test code = BUN) 11 7-22 [place] 799311-08-07 09:32:00 Test Item Value Reference Range Interpretation Comments Creatinine Lvl (test code = Creatinine 2.75 0.50-1.40 Lvl) [place] 799311-08-07 09:32:00 Test Item Value Reference Range Interpretation Comments Sodium Lvl (test code = Sodium Lvl) 138 135-145 [place] 799311-08-07 09:32:00 Test Item Value Reference Range Interpretation Comments Potassium Lvl (test code = Potassium 4.1 3.5-5.1 Lvl) [place] 799311-08-07 09:32:00 Test Item Value Reference Range Interpretation Comments Chloride Lvl (test code = Chloride Lvl) 104 95-109 [place] 799311-08-07 09:32:00 Test Item Value Reference Range Interpretation Comments CO2 (test code = CO2) 29 24-32 [place] 799311-08-07 09:32:00 Test Item Value Reference Range Interpretation Comments Calcium Lvl (test code = Calcium Lvl) 8.3 8.5-10.5 [place] 799311-08-07 09:32:00 Test Item Value Reference Range Interpretation Comments AGAP (test code = AGAP) 9.1 10.0-20.0 [place] 799311-08-07 09:32:00 Test Item Value Reference Range Interpretation Comments eGFR (test code = eGFR) 21 [place] 799311-08-07 09:32:00 Test Item Value Reference Range Interpretation Comments Magnesium Lvl (test code = Magnesium 2.2 1.8-2.4 Lvl) [place] 799311-08-07 09:32:00 Test Item Value Reference Range Interpretation Comments Phosphorus (test code = Phosphorus) 3.9 2.5-4.5 [place] [address]-08-07 09:32:00 Test Item Value Reference Range Interpretation Comments WBC (test code = WBC) 2.3 3.7-10.4 [place] [address]-08-07 09:32:00 Test Item Value Reference Range Interpretation Comments RBC (test code = RBC) 2.78 4.20-5.40 [place] [address]-08-07 09:32:00 Test Item Value Reference Range Interpretation Comments Hgb (test code = Hgb) 8.4 12.0-16.0 [place] 799751-08-07 09:32:00 Test Item Value Reference Range Interpretation Comments Hct (test code = Hct) 25.2 36.0-48.0 [place] [address]-08-07 09:32:00 Test Item Value Reference Range Interpretation Comments MCV (test code = MCV) 90.5 80.0-98.0 [place] [address]-08-07 09:32:00 Test Item Value Reference Range Interpretation Comments MCH (test code = MCH) 30.4 pg 27.0-31.0 [place] 799751-08-07 09:32:00 Test Item Value Reference Range Interpretation Comments MCHC (test code = MCHC) 33.5 32.0-36.0 [place] 799751-08-07 09:32:00 Test Item Value Reference Range Interpretation Comments RDW (test code = RDW) 19.0 11.5-14.5 [place] 799751-08-07 09:32:00 Test Item Value Reference Range Interpretation Comments Platelet (test code = Platelet) 87 133-450 [place] 799751-08-07 09:32:00 Test Item Value Reference Range Interpretation Comments MPV (test code = MPV) 10.0 7.4-10.4 [facility] [id number] 05:33:00 Test Item Value Reference Range Interpretation Comments ABO/Rh (test code = ABO/Rh) B POS [facility] RRSCZAG1528-23-09 05:33:00 Test Item Value Reference Range Interpretation Comments Antibody Scrn (test Negative (01/24/21 12:33 code = Antibody Scrn) AM) [facility] WestPlkyopeNARDTAKZTX7806-73-39 05:33:00 Test Item Value Reference Range Interpretation Comments Segs (test code = Segs) 60.2 45.0-75.0 [facility] WestFnfzwtlWEBDDSOFYJ4746-42-42 05:33:00 Test Item Value Reference Range Interpretation Comments Lymphocytes (test code = Lymphocytes) 28.6 20.0-40.0 [facility] WestAvweygqDZHEUCPXLA9024-67-61 05:33:00 Test Item Value Reference Range Interpretation Comments Monocytes (test code = Monocytes) 5.8 2.0-12.0 [facility] WestHrxgxouXFPASBCAHL3087-03-41 05:33:00 Test Item Value Reference Range Interpretation Comments Eosinophils (test code = 4.2 See_Comment [A utomated message] The Eosinophils) system which ge nerated this result tra nsmitted reference range : <=4.0. The reference r leo was not used to int erpret this result as normal/abnormal . [facility] WestAccmdsiIJUEBNVWKW0615-20-91 05:33:00 Test Item Value Reference Range Interpretation Comments Basophils (test code = 1.2 See_Comment [Aut omated message] The Basophils) system which ge nerated this result tra nsmitted reference range : <=1.0. The reference r leo was not used to int erpret this result as normal/abnormal . [facility] WestKznhnttYGULGWJRAI2065-41-42 05:33:00 Test Item Value Reference Range Interpretation Comments Neutrophils # (test code = Neutrophils 2.2 1.5-8.1 #) [facility] WestWuglgymDXOXFSPOCV2484-86-47 05:33:00 Test Item Value Reference Range Interpretation Comments Lymphocytes # (test code = Lymphocytes 1.1 1.0-5.5 #) [facility] WestHiesklrPROAPTLZHY6771-15-41 05:33:00 Test Item Value Reference Range Interpretation Comments Monocytes # (test code 0.2 See_Comment [Aut omated message] The = Monocytes #) system which generated this result tra nsmitted reference range : <=0.8. The reference r leo was not used to int erpret this result as normal/abnormal . [facility] WestWaaqgvsKNWFVSOGFE8011-03-88 05:33:00 Test Item Value Reference Range Interpretation Comments Eosinophils # (test code 0.2 See_Comment [A utomated message] The = Eosinophils #) system whic h generated this result tra nsmitted reference range : <=0.5. The reference r leo was not used to int erpret this result as normal/abnormal . [facility] WestSheddakGUELOAHBYZ8524-02-38 05:53:00 Test Item Value Reference Range Interpretation Comments PT (test code = PT) 14.4 s 12.0-14.7 [facility] WestFjlqoqlYJIOABVWUU9858-77-93 05:53:00 Test Item Value Reference Range Interpretation Comments INR (test code = INR) 1.13 1 0.85-1.17 [facility] WestPdulxhzHRKXDVIFKD5537-79-58 05:53:00 Test Item Value Reference Range Interpretation Comments Fibrinogen Lvl (test code = Fibrinogen 319 230-510 Lvl) [facility] WestFhxoxuzAHEAIQXJSU4126-95-99 05:53:00 Test Item Value Reference Range Interpretation Comments Thrombin Time (test code = Thrombin 15.9 s 15.0-21.2 Time) [facility] WestDuadoueRCNHXDFYAX3332-69-20 05:53:00 Test Item Value Reference Range Interpretation Comments PTT (test code = PTT) 47.0 s 22.9-35.8 [facility] WestYsdbgcsJUOPIWSORQ3661-14-50 05:53:00 Test Item Value Reference Range Interpretation Comments D-Dimer (test code = D-Dimer) 0.91 [facility] WestTtfklebCVABSTYAHM4495-81-58 05:53:00 Test Item Value Reference Range Interpretation Comments Basophils # (test code 0.1 See_Comment [Aut omated message] The = Basophils #) system which generated this result tra nsmitted reference range : <=0.2. The reference r leo was not used to int erpret this result as normal/abnormal . [facility] CenterPARATHYROID HYYXQFE5960-61-40 05:53:00 Test Item Value Reference Range Interpretation Comments Ca Ion WB (test code = Ca Ion WB) 1.24 1.05-1.25 [facility]2021-08-05 05:53:00 Test Item Value Reference Range Interpretation Comments Ca Norm WB (test code = Ca Norm WB) 1.25 1.05-1.25 [facility]2021-08-04 10:09:00 Test Item Value Reference Range Interpretation Comments ALT (test code = ALT) 49 See_Comment [Auto mated message] The system which ge nerated this result transmit rohit reference range : <=65. The reference range was not used to interpr et this result as reji l/abnormal. [facility]2021-08-04 10:09:00 Test Item Value Reference Range Interpretation Comments Albumin Lvl (test code = Albumin Lvl) 2.8 3.5-5.0 [facility]2021-08-04 10:09:00 Test Item Value Reference Range Interpretation Comments Alk Phos (test code = Alk Phos) 41 39-136 [facility]2021-08-04 10:09:00 Test Item Value Reference Range Interpretation Comments Bili Direct (test code 0.2 See_Comment [Aut omated message] The = Bili Direct) system which generated this result tra nsmitted reference range : <=0.3. The reference r leo was not used to int erpret this result as reji l/abnormal. [facility]bergIQMSONSL[facility]OR[facility] HOSPITALVEUID8816-13-97 10:09:00 Test Item Value Reference Range Interpretation Comments Bili Total (test code = Bili Total) 0.6 0.2-1.3 [facility]2021-08-04 10:09:00 Test Item Value Reference Range Interpretation Comments Bili Indirect (test 0.4 See_Comment [Automa rohit message] The code = Bili Indirect) system which generated this result tra nsmitted reference range : <=1.0. The reference r leo was not used to int erpret this result as normal/abnormal . [facility] [place] [place] [employer] [id number] 10:09:00 Test Item Value Reference Range Interpretation Comments Total Protein (test code = Total 5.6 6.4-8.4 Protein) [facility]2021-08-04 10:09:00 Test Item Value Reference Range Interpretation Comments AST (test code = AST) 33 See_Comment [Auto mated message] The system which ge nerated this result transmit rohit reference range : <=37. The reference range was not used to interpr et this result as reji l/abnormal. [facility] CenterFocal Therapeutics [id number] 10:09:00 Test Item Value Reference Range Interpretation Comments Globulin (test code = Globulin) 2.8 2.7-4.2 [place] 799311-08-04 10:09:00 Test Item Value Reference Range Interpretation Comments A/G Ratio (test code = A/G Ratio) 1.0 1 0.7-1.6 [place] 799311-08-04 10:09:00 Test Item Value Reference Range Interpretation Comments Amylase Lvl (test code = Amylase Lvl) 19 25-115 [facility] CenterF[facility] Therapeutics [id number] 10:09:00 Test Item Value Reference Range Interpretation Comments Lipase Lvl (test code = Lipase Lvl) no gt 73-393 [facility] WestYglraojXZPLUDNFYT8927-17-18 10:09:00 Test Item Value Reference Range Interpretation Comments PTT (test code = PTT) 41.4 s 22.9-35.8 [place] 799751-08-04 10:09:00 Test Item Value Reference Range Interpretation Comments PT (test code = PT) 15.4 s 12.0-14.7 [facility] WestCzfhptkZMTAOQOFHI9426-58-28 10:09:00 Test Item Value Reference Range Interpretation Comments INR (test code = INR) 1.24 1 0.85-1.17 [facility] WestWemwsepDRNTILHAAM7089-30-43 10:09:00 Test Item Value Reference Range Interpretation Comments Fibrinogen Lvl (test code = Fibrinogen 312 230-510 Lvl) [facility] WestYhtnusmXHOADIKOOA6579-23-26 10:09:00 Test Item Value Reference Range Interpretation Comments Thrombin Time (test code = Thrombin 16.6 s 15.0-21.2 Time) [place] 799751-08-04 10:09:00 Test Item Value Reference Range Interpretation Comments D-Dimer (test code = D-Dimer) 4.91 [place] 799751-08-04 10:09:00 Test Item Value Reference Range Interpretation Comments Basophils # (test code 0.1 See_Comment [Aut omated message] The = Basophils #) system which generated this result tra nsmitted reference range : <=0.2. The reference r leo was not used to int erpret this result as normal/abnormal . [facility]IAL TULCMOUTY6263-70-54 10:09:00 Test Item Value Reference Range Interpretation Comments Hgb A1C (test code = Hgb A1C) 5.6 [facility] CenterCHEM [id number] 09:07:00 Test Item Value Reference Range Interpretation Comments Amylase Lvl (test code = Amylase Lvl) 4 25-115 [facility] CenterNbcnchlSTRFCPFQDI8282-10-21 09:07:00 Test Item Value Reference Range Interpretation Comments Thrombin Time (test code = Thrombin 18.0 s 15.0-21.2 Time) [facility] WestNhxzgafSUMYRPVPQP3186-08-39 09:07:00 Test Item Value Reference Range Interpretation Comments PT (test code = PT) 24.6 s 12.0-14.7 [facility]homkttWIWFTVEXNX7676-78-67 09:07:00 Test Item Value Reference Range Interpretation Comments INR (test code = INR) 2.31 1 0.85-1.17 [facility] HospitalOabumdbLSPXVWDBKO6576-46-33 09:07:00 Test Item Value Reference Range Interpretation Comments PTT (test code = PTT) 57.5 s 22.9-35.8 [facility] HospitalLjqsxoqXALMKAKKHC1431-21-14 09:07:00 Test Item Value Reference Range Interpretation Comments Fibrinogen Lvl (test code = Fibrinogen 125 230-510 Lvl) [facility] HospitalFbdrnwzAXTHSXSEXP0784-95-78 09:07:00 Test Item Value Reference Range Interpretation Comments D-Dimer (test code = D-Dimer) 2.28 [facility] YGRXMIK8580-08-88 04:52:00 Test Item Value Reference Range Interpretation Comments RBC product (test code Product available = RBC product) (01/21/21 11:52 PM) [facility]CAR[facility] [id number] 00:38:00 Test Item Value Reference Range Interpretation Comments Troponin-I (test code no gt See_Comment [Auto mated message] The = Troponin-I) system which g enerated this result transmit rohit reference range : <=0.40. The reference r leo was not used to interpr et this result as reji l/abnormal. [facility]CAR[facility]AP[facility] [id number] 17:47:00 Test Item Value Reference Range Interpretation Comments BNP (test code = BNP) 2324 [facility] KlebergannCARDIAC [id number] 17:47:00 Test Item Value Reference Range Interpretation Comments Troponin-I (test code 0.02 See_Comment [Auto mated message] The = Troponin-I) system which g enerated this result transmit rohit reference range : <=0.40. The reference r leo was not used to interpr et this result as reji l/abnormal. [facility] KlebergAgajzpgGNMNPNIBDU0338-17-44 17:47:00 Test Item Value Reference Range Interpretation Comments Hep Bs Ag (test code Negative *NA*(01/21/21 = Hep Bs Ag) 12:47 PM) [facility] [place] [place] [employer] [id number] 17:43:00 Test Item Value Reference Range Interpretation Comments B/C Ratio (test code = B/C Ratio) 5 1 6-25 [facility] [place] [employer] [id number] 17:43:00 Test Item Value Reference Range Interpretation Comments ALT (test code = ALT) 66 See_Comment [Auto mated message] The system which ge nerated this result transmit rohit reference range : <=65. The reference range was not used to interpr et this result as reji l/abnormal. [facility] [employer] [id number] 17:43:00 Test Item Value Reference Range Interpretation Comments Albumin Lvl (test code = Albumin Lvl) 3.0 3.5-5.0 [facility] [place] [employer] [id number] 17:43:00 Test Item Value Reference Range Interpretation Comments Alk Phos (test code = Alk Phos) 40 39-136 [facility] [place] [employer] [id number] 17:43:00 Test Item Value Reference Range Interpretation Comments Bili Total (test code = Bili Total) 0.5 0.2-1.3 [facility] [place] [place] [employer] [id number] 17:43:00 Test Item Value Reference Range Interpretation Comments Total Protein (test code = Total 5.7 6.4-8.4 Protein) [facility] [place] [place] [employer] [id number] 17:43:00 Test Item Value Reference Range Interpretation Comments AST (test code = AST) 52 See_Comment [Auto mated message] The system which ge nerated this result transmit rohit reference range : <=37. The reference range was not used to interpr et this result as reji l/abnormal. [facility] [employer]2021-08-03 17:43:00 Test Item Value Reference Range Interpretation Comments Globulin (test code = Globulin) 2.7 2.7-4.2 [facility] [place] [employer] [id number] 17:43:00 Test Item Value Reference Range Interpretation Comments A/G Ratio (test code = A/G Ratio) 1.1 1 0.7-1.6 [facility] [place] [employer] [id number] 17:43:00 Test Item Value Reference Range Interpretation Comments Lactic Acid Lvl (test code = Lactic 1.1 0.5-2.2 Acid Lvl) [facility] TaylorJ[facility] [id number] 16:20:00 Test Item Value Reference Range Interpretation Comments ABO/Rh (test code = ABO/Rh) B POS [facility] [employer] [facility] [id number] 16:20:00 Test Item Value Reference Range Interpretation Comments Antibody Scrn (test Negative (01/21/21 11:20 code = Antibody Scrn) AM) [facility] CenterAtsymcxDTGQNFQRID9522-42-06 16:20:00 Test Item Value Reference Range Interpretation Comments Anisocyte (test code = 1+ *ABN*(01/21/21 Anisocyte) 11:20 AM) [facility] KlebergeH[facility] [id number] 15:35:00 Test Item Value Reference Range Interpretation Comments Lactase Lvl (test code = Lactase Lvl) 2.0 [facility] [id number] 15:35:00 Test Item Value Reference Range Interpretation Comments Sucrase Lvl (test code = Sucrase Lvl) 38.6 [facility]bergMoxsieUNC [facility] [id number] 15:35:00 Test Item Value Reference Range Interpretation Comments Maltase Lvl (test code = Maltase Lvl) 177.2 [facility] [id number] 15:35:00 Test Item Value Reference Range Interpretation Comments Palatinase Lvl (test code = Palatinase 13.8 Lvl) [facility] KlebergEblueyzKRNYBSMBGNTG5170-11-95 13:21:00 Test Item Value Reference Range Interpretation Comments Potassium WB (test code = Potassium WB) 5.1 3.5-5.1 [facility] CenterZvroehoEKTALZPQFGXRN2790-54-64 13:21:00 Test Item Value Reference Range Interpretation Comments S Preg (test code = S Negative 8*NA*(01/21/21 Preg) 8:21 AM) [facility] CenterTamzqlqDTEMWSZKHQ5832-74-62 11:19:00 Test Item Value Reference Range Interpretation Comments Coronavirus (COVID-19) Not Detected (01/21/21 EMANUEL (test code = 6:19 AM) Coronavirus (COVID-19) EMANUEL) [facility] [id number] 16:39:05 Test Item Value Reference Range Interpretation Comments Glucose POC (test 183 mg/dL 70-115 H If you con stone paver your code = Glucose POC) patient critically ill, the Merlin-Accu Check Infrom II meter should not be used for Glucose determination. Draw a venous Glucose and send to the main Lab for analysis. Urine [id number] 11:32:13 Test Item Value Reference Range Interpretation [...] Escherichia coli C Urine Added by GL_SJM_UA_CUL_INDPOC Jbkamhi1020-06-95 07:52:10 Test Item Value Reference Range Interpretation Comments Glucose POC (test 160 mg/dL 70-115 H If you con stone paver your code = Glucose POC) patient critically ill, the Merlin-Accu Check Infrom II meter should not be used for Glucose determination. Draw a venous Glucose and send to the main Lab for analysis. POC Jjlkktx4923-77-15 19:32:05 Test Item Value Reference Range Interpretation Comments Glucose POC (test 184 mg/dL 70-115 H If you con stone paver your code = Glucose POC) patient critically ill, the Merlin-Accu Check Infrom II meter should not be used for Glucose determination. Draw a venous Glucose and send to the main Lab for analysis. POC [id number] 17:16:35 Test Item Value Reference Range Interpretation Comments Glucose POC (test 281 mg/dL 70-115 H Notify RN or MDIf you code = Glucose POC) consider your patient critically ill, the Merlin-Accu Chec k Infrom II meter should not be used for Glucos e determination. Draw a venous Glucose and send to the main Lab for analysis. POC [id number] 12:00:38 Test Item Value Reference Range Interpretation Comments Glucose POC (test 138 mg/dL 70-115 H Notify RN or MDIf you code = Glucose POC) consider your patient critically ill, the Merlin-Accu Chec k Infrom II meter should not be used for Glucos e determination. Draw a venous Glucose and send to the main Lab for analysis. POC [id number] 07:41:32 Test Item Value Reference Range Interpretation Comments Glucose POC (test 206 mg/dL 70-115 H Notify RN or MDIf you code = Glucose POC) consider your patient critically ill, the Merlin-Accu Chec k Infrom II meter should not be used for Glucos e determination. Draw a venous Glucose and send to the main Lab for analysis. Urinalysis [id number] 21:07:21 Test Item Value Reference Range Interpretation Comments UA WBC (test code = UA WBC) TNTC 0-5 A UA RBC (test code = UA RBC) 6-10 0-5 A UA Bacteria (test code = UA Bacteria) Profuse A UA Squam Epithelial (test code = UA 6-10 A Squam Epithelial) Urinalysis with Culture, if [id number] 20:35:14 Test Item Value Reference Range Interpretation [...] Micro Indicated Not Indicated A Ind?) POC [id number] 19:06:34 Test Item Value Reference Range Interpretation Comments Glucose POC (test 207 mg/dL 70-115 H If you con stone paver your code = Glucose POC) patient critically ill, the Merlin-Accu Check Infrom II meter should not be used for Glucose determination. Draw a venous Glucose and send to the main Lab for analysis. POC [id number] 17:12:03 Test Item Value Reference Range Interpretation Comments Glucose POC (test 173 mg/dL 70-115 H Notify RN or MDIf you code = Glucose POC) consider your patient critically ill, the Merlin-Accu Chec k Infrom II meter should not be used for Glucos e determination. Draw a venous Glucose and send to the main Lab for analysis. POC [id number] 11:58:01 Test Item Value Reference Range Interpretation Comments Glucose POC (test 289 mg/dL 70-115 H Notify RN or MDIf you code = Glucose POC) consider your patient critically ill, the Merlin-Accu Chec k Infrom II meter should not be used for Glucos e determination. Draw a venous Glucose and send to the main Lab for analysis. POC [id number] 08:19:37 Test Item Value Reference Range Interpretation Comments Glucose POC (test 201 mg/dL 70-115 H Notify RN or MDIf you code = Glucose POC) consider your patient critically ill, the Merlin-Accu Chec k Infrom II meter should not be used for Glucos e determination. Draw a venous Glucose and send to the main Lab for analysis. POC [id number] 20:37:35 Test Item Value Reference Range Interpretation Comments Glucose POC (test 272 mg/dL 70-115 H If you con stone paver your code = Glucose POC) patient critically ill, the Merlin-Accu Check Infrom II meter should not be used for Glucose determination. Draw a venous Glucose and send to the main Lab for analysis. POC [id number] 17:23:05 Test Item Value Reference Range Interpretation Comments Glucose POC (test 229 mg/dL 70-115 H If you con stone paver your code = Glucose POC) patient critically ill, the Merlin-Accu Check Infrom II meter should not be used for Glucose determination. Draw a venous Glucose and send to the main Lab for analysis. POC [id number] 12:01:01 Test Item Value Reference Range Interpretation Comments Glucose POC (test 155 mg/dL 70-115 H If you con stone paver your code = Glucose POC) patient critically ill, the Merlin-Accu Check Infrom II meter should not be used for Glucose determination. Draw a venous Glucose and send to the main Lab for analysis. POC [id number] 08:07:32 Test Item Value Reference Range Interpretation Comments Glucose POC (test 248 mg/dL 70-115 H If you con stone paver your code = Glucose POC) patient critically ill, the Merlin-Accu Check Infrom II meter should not be used for Glucose determination. Draw a venous Glucose and send to the main Lab for analysis. IG [id number] 06:50:39 Test Item Value Reference Range Interpretation Comments IG (test code = IG) 0.7 % 0.0-5.0 IG Abs (test code = IG Abs) 0 x10 N Complete Blood Count with [id number] 06:50:38 Test Item Value Reference Range Interpretation [...] code = IPF) 0 % N Automated [id number] 06:50:38 Test Item Value Reference Range Interpretation Comments Neutro Auto (test code = Neutro 50.3 % 36.0-70.0 Auto) Lymph Auto (test code = Lymph Auto) 38.6 % 12.0-44.0 [place] Auto (test code = [place] Auto) 7.3 % 0.0-11.0 Eos, Auto (test code = Eos, Auto) 2.4 % 0.0-7.0 Basophil Auto (test code = Basophil 0.7 % 0.0-2.0 Auto) Neutro Absolute (test code = Neutro 3.0 x10 1.6-7.4 Absolute) Lymph Absolute (test code = Lymph 2.28 x10 .50-4.60 Absolute) [place] Absolute (test code = [place] .43 x10 .00-1.20 Absolute) Eos Absolute (test code = Eos 0.14 x10 0.00-0.74 Absolute) Baso Absolute (test code = Baso 0.04 x10 0.00-0.21 Absolute) Basic Metabolic [id number] 05:38:20 Test Item Value Reference Range Interpretation [...] = Lipemia) 0 mg/dL 8-11 Basic Metabolic [id number] 05:38:20 Test Item Value Reference Range Interpretation [...] = 0 mg/dL 8-11 Lipemia) Basic Metabolic [id number] 05:38:20 Test Item Value Reference Range Interpretation [...] ag e have not been validated by [facility] MDRD study and should be [...] ag e have not been validated by [facility] MDRD study and should be [...] code = 0 mg/dL 8-11 Lipemia) POC [id number] 20:28:33 Test Item Value Reference Range Interpretation Comments Glucose POC (test 169 mg/dL 70-115 H If you con stone paver your code = Glucose POC) patient critically ill, the Merlin-Accu Check Infrom II meter should not be used for Glucose determination. Draw a venous Glucose and send to the main Lab for analysis. POC [id number] 16:39:30 Test Item Value Reference Range Interpretation Comments Glucose POC (test 103 mg/dL 70-115 If you con stone paver your code = Glucose POC) patient critically ill, the Merlin-Accu Check Infrom II meter should not be used for Glucose determination. Draw a venous Glucose and send to the main Lab for analysis. RPR [id number] 12:08:56 Test Item Value Reference Range Interpretation Comments RPR Qual (test code = RPR Qual) Non-Reactive Non-Reactive Reactive Control (test code = Reactive Reactive Control) Weak Reactive Control (test Weak Reactive code = Weak Reactive Control) Non-Reactive Control (test code Non-Reactive = Non-Reactive Control) Lot # (test code = Lot #) [id number] N Expiration Dt (test code = 03-20-2021 N Expiration Dt) POC [id number] 11:52:31 Test Item Value Reference Range Interpretation Comments Glucose POC (test 250 mg/dL 70-115 H If you con stone paver your code = Glucose POC) patient critically ill, the Merlin-Accu Check Infrom II meter should not be used for Glucose determination. Draw a venous Glucose and send to the main Lab for analysis. POC [id number] 07:55:29 Test Item Value Reference Range Interpretation Comments Glucose POC (test 205 mg/dL 70-115 H If you con stone paver your code = Glucose POC) patient critically ill, the Merlin-Accu Check Infrom II meter should not be used for Glucose determination. Draw a venous Glucose and send to the main Lab for analysis. Lipid [id number] 05:46:04 Test Item Value Reference Range Interpretation [...] LDL/HDL Ratio=L DL Calc/HDL Chol Thyroid Stimulating [id number] 05:46:04 Test Item Value Reference Range Interpretation Comments TSH (test code = TSH) 3.274 mcIU/mL 0.550-4.780 Hemoglobin [id number] 05:41:08 Test Item Value Reference Range Interpretation Comments Hemoglobin A1c (test code 7.6 % 4.0-5.8 H Di abetic >=6.5 = Hemoglobin A1c) %Prediabet es 5.7-6.4 %Normal <5.7 % Hepatitis B Surface [id number] 21:19:36 Test Item Value Reference Range Interpretation Comments Hep Bs Ag (test code = Hep Bs Non-Reactive Non-Reactive Ag) Novel Coronavirus SARS-CoV-2, [id number] 11:16:16 Test Item Value Reference Range Interpretation [...] Emergency Use Authorization." Novel Coronavirus (COVID-19), EMANUEL [id number] 11:11:24TNPTest not sent and performed at [facility]Rapid was perfomed in Microbiology.Wrong covid test was ord ered.Urine DOA [id number] 00:17:49 Test Item Value Reference Range Interpretation [...] Propoxyphene Confirmation wi thin 7 days. Alcohol [id number] 00:17:29 Test Item Value Reference Range Interpretation Comments Ethanol Level 9.0 mg/dL N The pharmacolo gical (test code = response to blo od alcohol Ethanol Level) levels may va ry from individual to i ndividual. The fatal omkar ntration has been report ed to be >400 mg/dl. Comprehensive Metabolic [id number] 00:17:28 Test Item Value Reference Range Interpretation [...] = Lipemia) 0 g/dL 1-2 Comprehensive Metabolic [id number] 00:17:28 Test Item Value Reference Range Interpretation [...] = 0 g/dL 1-2 Lipemia) Comprehensive Metabolic [id number] 00:17:28 Test Item Value Reference Range Interpretation [...] g/dL 1-2 Lipemia) Complete Blood Count with [id number] 23:26:28 Test Item Value Reference Range Interpretation [...] code = IPF) 0 % N Automated [id number] 23:26:28 Test Item Value Reference Range Interpretation Comments Neutro Auto (test code = Neutro 67.1 % 36.0-70.0 Auto) Lymph Auto (test code = Lymph Auto) 23.3 % 12.0-44.0 [place] Auto (test code = [place] Auto) 5.8 % 0.0-11.0 Eos, Auto (test code = Eos, Auto) 2.3 % 0.0-7.0 Basophil Auto (test code = Basophil 0.8 % 0.0-2.0 Auto) Neutro Absolute (test code = Neutro 6.0 x10 1.6-7.4 Absolute) Lymph Absolute (test code = Lymph 2.10 x10 .50-4.60 Absolute) [place] Absolute (test code = [place] .52 x10 .00-1.20 Absolute) Eos Absolute (test code = Eos 0.21 x10 0.00-0.74 Absolute) Baso Absolute (test code = Baso 0.07 x10 0.00-0.21 Absolute) IG [id number] 23:26:28 Test Item Value Reference Range Interpretation Comments IG (test code = IG) 0.7 % 0.0-5.0 IG Abs (test code = IG Abs) 0 x10 N HERPES VIRUS ANTIBODY, [id number] 21:46:00 Test Item Value Reference Range Interpretation Comments HERPES VIRUS IGM (BEAKER) Negative SE E ATTACHMENT (test code = 1808) BLOOD [id number] 06:00:00 Test Item Value Reference Range Interpretation Comments CULTURE (BEAKER) (test No growth in 5 days code = 1095) BLOOD [id number] 06:00:00 Test Item Value Reference Range Interpretation Comments CULTURE (BEAKER) (test No growth in 5 days code = 1095) POCT-GLUCOSE [id number] 12:11:00 Test Item Value Reference Range Interpretation Comments POC-GLUCOSE METER 154 mg/dL 70-110 H TESTED AT [facility] [address] (BEAKER) (test code = [place] 1538) [address] POCT-GLUCOSE [id number] 07:53:00 Test Item Value Reference Range Interpretation Comments POC-GLUCOSE METER 87 mg/dL 70-110 TESTED AT [facility] [address] (BEAKER) (test code = [place] Denny [facility] [address] 1538) POCT-GLUCOSE [id number] 06:49:00 Test Item Value Reference Range Interpretation Comments POC-GLUCOSE METER 79 mg/dL 70-110 TESTED AT [facility] [address] (BEAKER) (test code = BROO[place] Denny [facility] [address] 1538) COMPREHENSIVE METABOLIC [id number] 06:15:00 Test Item Value Reference Range Interpretation [...] S NOT APPLICABLE FOR DIALYSIS PATIEN TS. [id number] 06:11:00 Test Item Value Reference Range Interpretation Comments MAGNESIUM (BEAKER) (test code = 2.1 mg/dL 1.6-2.6 627) HEPATIC FUNCTION [id number] 06:11:00 Test Item Value Reference Range Interpretation [...] code = 513 U/L 6-55 H 347) [id number] 05:30:00 Test Item Value Reference Range Interpretation Comments FIBRINOGEN LEVEL (BEAKER) (test 368 mg/dl 225-434 code = 658) [id number] 05:30:00 Test Item Value Reference Range Interpretation Comments PARTIAL THROMBOPLASTIN TIME 42.2 seconds 22.5-36.0 H (BEAKER) (test code = 760) PROTHROMBIN [id number] 05:29:00 Test Item Value Reference Range Interpretation Comments PROTIME (BEAKER) (test code = 14.8 seconds 11.7-14.7 H 759) INR (BEAKER) (test code = 370) 1.2 <=5.9 RECOMMENDED COUMADIN/WARFARIN INR THERAPY RANGESSTANDARD DOSE: 2.0 - 3.0 Includes: PROPHYLAXIS for venous thrombosis, systemic embolization; TREATMENT for venous thrombosis and/or pulmonary embolus.HIGH RISK: Target INR is 2.5-3.5 for patients with mechanical heart valves.POCT-GLUCOSE [id number] 21:09:00 Test Item Value Reference Range Interpretation Comments POC-GLUCOSE METER 178 mg/dL 70-110 H TESTED AT [facility] [address] ([facility]) (test code = [place] Denny [place] 1538) [address] POCT-GLUCOSE [id number] 17:18:00 Test Item Value Reference Range Interpretation Comments POC-GLUCOSE METER 178 mg/dL 70-110 H TESTED AT [facility] [address] ([facility]) (test code = [place] D[place] 1538) [address] POCT-GLUCOSE [id number] 13:48:00 Test Item Value Reference Range Interpretation Comments POC-GLUCOSE METER 150 mg/dL 70-110 H TESTED AT [facility] [address] ([facility]) (test code = BANNER Sj [facility] 1538) [address] FACTOR 5 ACTIVITY (BLEEDING RISK)2017-01-06 10:04:00 Test Item Value Reference Range Interpretation Comments FACTOR V ACTIVITY ([facility]) (test code 90.0 % 60.0-150.0 = 665) Effective 10/24/2013: Reference Range Change-Adult onlyNew: 60.0-150.0 Previous: 50.0-150.0CYTOMEGALOVIRUS ANTIBODY, [id number] 09:42:00 Test Item Value Reference Range Interpretation Comments CYTOMEGALOVIRUS IGM ANTIBODY Negative ([facility]) (test code = 816) HERPES VIRUS ANTIBODY, [id number] 08:59:00 Test Item Value Reference Range Interpretation Comments 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[facility]) (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 G 1807) CYTOMEGALOVIRUS ANTIBODY, [id number] 08:59:00 Test Item Value Reference Range Interpretation Comments CYTOMEGALOVIRUS IGG ANTIBODY Positive ([facility]) (test code = 790) EBV-VCA ANTIBODY, [id number] 08:59:00 Test Item Value Reference Range Interpretation Comments JASE-WALL VCA IGG ([facility]) (test Positive code = 983) EBV-VCA ANTIBODY, [id number] 08:59:00 Test Item Value Reference Range Interpretation Comments JASE-WALL VCA IGM ([facility]) (test Negative code = 984) POCT-GLUCOSE [id number] 07:59:00 Test Item Value Reference Range Interpretation Comments POC-GLUCOSE METER 81 mg/dL 70-110 TESTED AT [facility] [address] ([facility]) (test code = BROOKE Denny [facility] [address] 1538) COMPREHENSIVE METABOLIC [id number] 06:23:00 Test Item Value Reference Range Interpretation Comments TOTAL PROTEIN 5.3 gm/dL 6.0-8.3 L ([facility]) (test code = 770) ALBUMIN (BEAKER) 2.4 [...] S NOT APPLICABLE FOR DIALYSIS PATIEN TS. [id number] 06:17:00 Test Item Value Reference Range Interpretation Comments MAGNESIUM (BEAKER) (test code = 1.8 mg/dL 1.6-2.6 627) HEPATIC FUNCTION [id number] 06:17:00 Test Item Value Reference Range Interpretation [...] 364 U/L 5-34 H 353) ALT (SGPT) ([facility]) (test code = 779 U/L 6-55 H 347) [id number] 06:00:00 Test Item Value Reference Range Interpretation Comments FIBRINOGEN LEVEL ([facility]) (test 390 mg/dl 225-434 code = 658) [id number] 06:00:00 Test Item Value Reference Range Interpretation Comments PARTIAL THROMBOPLASTIN TIME 40.2 seconds 22.5-36.0 H ([facility]) (test code = 760) PROTHROMBIN [id number] 05:59:00 Test Item Value Reference Range Interpretation Comments PROTIME (ILIANA) (test code = 14.6 seconds 11.7-14.7 759) INR ([facility]) (test code = 370) 1.2 <=5.9 RECOMMENDED COUMADIN/WARFARIN INR THERAPY RANGESSTANDARD DOSE: 2.0 - 3.0 Includes: PROPHYLAXIS for venous thrombosis, systemic embolization; TREATMENT for venous thrombosis and/or pulmonary embolus.HIGH RISK: Target INR is 2.5-3.5 for patients with mechanical heart valves.POCT-GLUCOSE [id number] 21:46:00 Test Item Value Reference Range Interpretation Comments POC-GLUCOSE METER 153 mg/dL 70-110 H TESTED AT [place] [address] ([facility]) (test code = BROOKE Denny [facility] 1538) [address] POCT-GLUCOSE [id number] 18:47:00 Test Item Value Reference Range Interpretation Comments POC-GLUCOSE METER 181 mg/dL 70-110 H TESTED AT [place] [address] ([facility]) (test code = BROOKE Denny [facility] 1538) [address] POCT-GLUCOSE [id number] 12:40:00 Test Item Value Reference Range Interpretation Comments POC-GLUCOSE METER 178 mg/dL 70-110 H TESTED AT [place] [address] ([facility]) (test code = BROOKE Denny [facility] 1538) [address] POCT-GLUCOSE [id number] 07:51:00 Test Item Value Reference Range Interpretation Comments POC-GLUCOSE METER 166 mg/dL 70-110 H TESTED AT [facility] [address] (BEAKER) (test code = [place] 1538) [address] COMPREHENSIVE METABOLIC [id number] 03:26:00 Test Item Value Reference Range Interpretation [...] S NOT APPLICABLE FOR DIALYSIS PATIEN TS. [id number] 03:22:00 Test Item Value Reference Range Interpretation Comments MAGNESIUM (BEAKER) (test code = 1.4 mg/dL 1.6-2.6 L 627) HEPATIC FUNCTION [id number] 03:22:00 Test Item Value Reference Range Interpretation [...] code = 1009 U/L 6-55 H 347) [id number] 03:12:00 Test Item Value Reference Range Interpretation Comments AMMONIA (BEAKER) (test code = 348) 29 mol/L 18-72 [id number] 03:10:00 Test Item Value Reference Range Interpretation Comments PARTIAL THROMBOPLASTIN TIME 42.3 seconds 22.5-36.0 H (BEAKER) (test code = 760) PROTHROMBIN [id number] 03:09:00 Test Item Value Reference Range Interpretation Comments PROTIME (BEAKER) (test code = 16.4 seconds 11.7-14.7 H 759) INR (BEAKER) (test code = 370) 1.3 <=5.9 RECOMMENDED COUMADIN/WARFARIN INR THERAPY RANGESSTANDARD DOSE: 2.0 - 3.0 Includes: PROPHYLAXIS for venous thrombosis, systemic embolization; TREATMENT for venous thrombosis and/or pulmonary embolus.HIGH RISK: Target INR is 2.5-3.5 for patients with mechanical heart valves.[id number] 03:09:00 Test Item Value Reference Range Interpretation Comments FIBRINOGEN LEVEL (BEAKER) (test 413 mg/dl 225-434 code = 658) CBC W/PLT COUNT & AUTO [id number] 03:09:00 Test Item Value Reference Range Interpretation [...] L 0.00-0.20 (test code = 417) 0.00POCT-GLUCOSE [id number] 22:33:00 Test Item Value Reference Range Interpretation Comments POC-GLUCOSE METER 230 mg/dL 70-110 H TESTED AT [facility] [address] (BEAKER) (test code = [place] 1538) [address] POCT-GLUCOSE [id number] 18:17:00 Test Item Value Reference Range Interpretation Comments POC-GLUCOSE METER 222 mg/dL 70-110 H TESTED AT [facility] [address] (BEAKER) (test code = [place] 1538) [address] COMPREHENSIVE METABOLIC [id number] 16:59:00 Test Item Value Reference Range Interpretation [...] PATIEN TS. PERIPHERAL BLOOD SMEAR - PATHOLOGIST [id number] 15:30:00 Test Item Value Reference Range Interpretation Comments RBC MORPHOLOGY Polychromasia (BEAKER) (test code = 2846) RBC MORPHOLOGY Anisocytosis (BEAKER) (test code = 68663) PERIPHERAL SMR REVIEW Cell counts confirmed (BEAKER) (test code = 9074[id number] Josefina Lara M.D. ([place]) (test code = (electronic signature) 2844) PROTHROMBIN [id number] 15:12:00 Test Item Value Reference Range Interpretation Comments PROTIME (MADIE) (test code = 16.6 seconds 11.7-14.7 H 759) INR (MADIE) (test code = 370) 1.4 <=5.9 RECOMMENDED COUMADIN/WARFARIN INR THERAPY RANGESSTANDARD DOSE: 2.0 - 3.0 Includes: PROPHYLAXIS for venous thrombosis, systemic embolization; TREATMENT for venous thrombosis and/or pulmonary embolus.HIGH RISK: Target INR is 2.5-3.5 for patients with mechanical heart valves.ANTI-NUCLEAR ANTIBODY (IVETTE)2017-01-04 14:32:00 Test Item Value Reference Range Interpretation Comments ANTI-NUCLEAR ANTIBODY (IVETTE) (MADIE) Negative Negative (test code = 418) POCT-GLUCOSE [id number] 12:47:00 Test Item Value Reference Range Interpretation Comments POC-GLUCOSE METER 212 mg/dL 70-110 H TESTED AT [facility] ([facility]) ([facility] 1538) [address] [id number] 12:34:00 Test Item Value Reference Range Interpretation Comments RPR SCREEN ([facility]) (test code = Nonreactive Nonreactive 420) CLOSTRIDIUM DIFFICILE TOXIN [id number] 10:12:00 Test Item Value Reference Range Interpretation Comments CLOSTRIDIUM DIFFICILE TOXIN, PCR Not Detected Not Detected ([facility]) (test code = 1525) This qualitative real-time [...] Reference Range Change-Adult onlyNew: 60.0-150.0 Previous: 50.0-150.0POCT-GLUCOSE [id number] 06:40:00 Test Item Value Reference Range Interpretation Comments POC-GLUCOSE METER 167 mg/dL 70-110 H TESTED AT [facility] [address] ([facility]) (test code = [place] 1538) [address] COMPREHENSIVE METABOLIC [id number] 04:08:00 Test Item Value Reference Range Interpretation [...] ESTIM ATED GFR. Specimen slightly ictericHEPATIC FUNCTION [id number] 04:06:00 Test Item Value Reference Range Interpretation [...] 1091 U/L 6-55 H 347) Specimen slightly [id number] 04:01:00 Test Item Value Reference Range Interpretation Comments FIBRINOGEN LEVEL (BEAKER) (test 379 mg/dl 225-434 code = 658) [id number] 04:01:00 Test Item Value Reference Range Interpretation Comments PARTIAL THROMBOPLASTIN TIME 40.7 seconds 22.5-36.0 H (BEAKER) (test code = 760) PROTHROMBIN [id number] 04:00:00 Test Item Value Reference Range Interpretation [...] mechanical heart valves.CBC W/PLT COUNT & AUTO [id number] 03:56:00 Test Item Value Reference Range Interpretation [...] L 0.00-0.20 (test code = 417) 0.00POCT-GLUCOSE [id number] 00:19:00 Test Item Value Reference Range Interpretation Comments POC-GLUCOSE METER 159 mg/dL 70-110 H TESTED AT [facility] (test code = [place] 1538) [address] POCT-GLUCOSE [id number] 18:56:00 Test Item Value Reference Range Interpretation Comments POC-GLUCOSE METER 192 mg/dL 70-110 H TESTED AT [facility] [address] ([facility]) (test code = [facility] 1538) [address] COMPREHENSIVE METABOLIC [id number] 16:55:00 Test Item Value Reference Range Interpretation [...] CALCULATE ESTIM ATED GFR. Specimen slightly ictericPROTHROMBIN [id number] 16:37:00 Test Item Value Reference Range Interpretation Comments PROTIME (BEAKER) (test code = 20.9 seconds 11.7-14.7 H 759) INR (BEAKER) (test code = 370) 1.8 <=5.9 RECOMMENDED COUMADIN/WARFARIN INR THERAPY RANGESSTANDARD DOSE: 2.0 - 3.0 Includes: PROPHYLAXIS for venous thrombosis, systemic embolization; TREATMENT for venous thrombosis and/or pulmonary embolus.HIGH RISK: Target INR is 2.5-3.5 for patients with mechanical heart valves.HEPATITIS B SURFACE [id number] 14:05:00 Test Item Value Reference Range Interpretation Comments HEPATITIS B SURFACE ANTIBODY < mIU/mL <8.0 (BEAKER) (test code = 647) HEPATITIS B CORE ANTIBODY, [id number] 13:43:00 Test Item Value Reference Range Interpretation Comments HEPATITIS B CORE TOTAL ANTIBODY Nonreactive Nonreactive (BEAKER) (test code = 497) BLOOD GAS, [id number] 13:35:00 Test Item Value Reference Range Interpretation [...] code = 1819) 28.0 % URINALYSIS W/ [id number] 13:16:00 Test Item Value Reference Range Interpretation [...] 1584) SOURCE(BEAKER) (test code = Urine, [place] 9685) VITAMIN D, 93-[id number] 13:14:00 Test Item Value Reference Range Interpretation Comments VITAMIN D 25-OH (BEAKER) (test code = < ng/mL 13.0-47.8 L 2764) ALPHA FETOPROTEIN (AFP), TUMOR [id number] 13:06:00 Test Item Value Reference Range Interpretation Comments ALPHA-FETOPROTEIN (BEAKER) (test code < ng/mL <10.0 = 1094) Effective 05/08/2014: Reference Range ChangeNew: <10.0 Previous: 0.0-8.0 HEMOGLOBIN [id number] 13:05:00 Test Item Value Reference Range Interpretation Comments HEMOGLOBIN A1C (BEAKER) (test code = 7.6 % 4.3-6.1 H 368) CARCINOEMBRYONIC ANTIGEN (CEA)2017-01-03 12:59:00 Test Item Value Reference Range Interpretation Comments CARCINOEMBRYONIC ANTIGEN (BEAKER) 2.0 ng/mL 0.0-5.0 (test code = 685) [id number] 12:59:00 Test Item Value Reference Range Interpretation Comments FERRITIN (BEAKER) (test code = 1841 ng/mL 5-275 H 361) Effective 05/08/2014: Reference Range ChangeNew: Male 5-275 Previous: Male 22- 322 Female 5-275 Female [id number] 12:58:00 Test Item Value Reference Range Interpretation Comments T4 TOTAL (BEAKER) (test code = 895) 4.5 ug/dL 4.9-11.7 L [id number] 12:58:00 Test Item Value Reference Range Interpretation Comments THYROID STIMULATING HORMONE 1.79 uIU/mL 0.35-4.94 (BEAKER) (test code = 772) [id number] 12:58:00 Test Item Value Reference Range Interpretation Comments T3 TOTAL (BEAKER) (test code = 656) 34 ng/dL 48-159 L Effective 05/08/2014: Reference Range ChangeNew: 48-159 Previous: 60-181CALCIUM, [id number] 12:47:00 Test Item Value Reference Range Interpretation Comments CALCIUM IONIZED (BEAKER) (test 1.05 mmol/L 1.12-1.27 L code = 698) PH, BLOOD (BEAKER) (test code = 7.43 1810) [id number] 12:42:00 Test Item Value Reference Range Interpretation [...] % 20-55 (test code = 2590) URIC [id number] 12:40:00 Test Item Value Reference Range Interpretation Comments URIC ACID (BEAKER) (test code = 16.0 mg/dL 2.6-7.2 H 773) Specimen slightly ictericLIPID [id number] 12:40:00 Test Item Value Reference Range Interpretation [...] 160-189 Very High >=190 Specimen slightly ictericBILIRUBIN, [id number] 12:40:00 Test Item Value Reference Range Interpretation Comments BILIRUBIN DIRECT (BEAKER) (test 2.4 mg/dL 0.1-0.5 H code = 706) GAMMA GLUTAMYL TRANSFERASE (GGT)2017-01-03 12:40:00 Test Item Value Reference Range Interpretation Comments GAMMA GLUTAMYL TRANSFERASE (BEAKER) 53 U/L 9-64 (test code = 364) Specimen slightly vbuuzdiGQAAYSP6582-16-10 12:39:00 Test Item Value Reference Range Interpretation Comments ETHANOL (BEAKER) (test code = 400) < mg/dL <=10 SCREEN, [id number] 12:36:00 Test Item Value Reference Range Interpretation Comments TEST URINE (BEAKER) (test Negative code = 583) POCT-GLUCOSE [id number] 12:34:00 Test Item Value Reference Range Interpretation Comments POC-GLUCOSE METER 189 mg/dL 70-110 H TESTED AT [facility] (BEAKER) (test code = [place] 1538) [address] HIV-1 ANTIGEN WITH HIV-1/2 [id number] 11:58:00 Test Item Value Reference Range Interpretation Comments HIV-1 ANTIGEN WITH HIV 1\\T\\2 Nonreactive Nonreactive ANTIBODY (2) (BEAKER) (test code = 2586) TROPONIN [id number] 09:44:00 Test Item Value Reference Range Interpretation [...] 0.0-4.9CK-MB Reference Range:<6.7 Normal6.7-10.0 Borderline>10.0 Abnormal ACETAMINOPHEN [id number] 08:31:00 Test Item Value Reference Range Interpretation Comments ACETAMINOPHEN LEVEL (BEAKER) (test < ug/mL 10.0-30.0 L code = 344) TROPONIN [id number] 05:53:00 Test Item Value Reference Range Interpretation [...] acute neurological disease, and persistent tachyarrhythmia.BASIC METABOLIC [id number] 05:53:00 Test Item Value Reference Range Interpretation [...] TO CALCULA TE ESTIMATED GFR. Specimen slightly aojqipmZRUXXLBCRW1291-66-18 05:52:00 Test Item Value Reference Range Interpretation Comments PHOSPHORUS (BEAKER) (test code = 5.7 mg/dL 2.3-4.7 H 604) HEPATIC FUNCTION [id number] 05:52:00 Test Item Value Reference Range Interpretation [...] Specimen slightly ictericCREATINE KINASE (CK), TOTAL AND [id number] 05:52:00 Test Item Value Reference Range Interpretation Comments CREATINE KINASE TOTAL (BEAKER) 341 U/L 29-200 H (test code = 380) CREATINE KINASE-MB (BEAKER) (test 5.4 ng/mL 0.0-6.6 code = 750) CREATINE KINASE-MB INDEX (BEAKER) 1.6 % (test code = 395) Effective 05/08/2014: CK-MB Reference Range ChangeNew: 0.0-6.6 Previous: 0.0-4.9CK-MB Reference Range:<6.7 Normal6.7-10.0 Borderline>10.0 Abnormal CBC W/PLT COUNT & AUTO [id number] 05:48:00 Test Item Value Reference Range Interpretation [...] K/ L 0.00-0.20 (test code = 417) 0.56JUIFSTJFZR0506-56-91 05:09:00 Test Item Value Reference Range Interpretation Comments FIBRINOGEN LEVEL (BEAKER) (test 427 mg/dl 225-434 code = 658) [id number] 05:09:00 Test Item Value Reference Range Interpretation Comments PARTIAL THROMBOPLASTIN TIME 36.2 seconds 22.5-36.0 H (BEAKER) (test code = 760) PROTHROMBIN TIME/[id number] 05:08:00 Test Item Value Reference Range Interpretation Comments PROTIME (BEAKER) (test code = 22.8 seconds 11.7-14.7 H 759) INR (BEAKER) (test code = 370) 2.0 <=5.9 RECOMMENDED COUMADIN/WARFARIN INR THERAPY RANGESSTANDARD DOSE: 2.0 - 3.0 Includes: PROPHYLAXIS for venous thrombosis, systemic embolization; TREATMENT for venous thrombosis and/or pulmonary embolus.HIGH RISK: Target INR is 2.5-3.5 for patients with mechanical heart valves.HEPATITIS PANEL, [id number] 03:40:00 Test Item Value Reference Range Interpretation Comments HEPATITIS A IGM ANTIBODY (BEAKER) Nonreactive Nonreactive (test code = 498) HEPATITIS B CORE IGM ANTIBODY Nonreactive Nonreactive (BEAKER) (test code = 645) HEPATITIS C ANTIBODY (BEAKER) Nonreactive Nonreactive (test code = 367) HEPATITIS B SURFACE ANTIGEN (2) Nonreactive Nonreactive (BEAKER) (test code = 2585) CREATININE, RANDOM [id number] 03:18:00 Test Item Value Reference Range Interpretation Comments CREATININE URINE (BEAKER) (test 118.7 mg/dL code = 375) Reference Range: No NormalsSODIUM, RANDOM [id number] 03:18:00 Test Item Value Reference Range Interpretation Comments SODIUM URINE (BEAKER) (test code = 60 meq/L 243) Reference Range: No NormalsUREA NITROGEN, RANDOM [id number] 03:18:00 Test Item Value Reference Range Interpretation Comments UREA NITROGEN URINE (BEAKER) (test 303 mg/dL code = 538) Reference Range: No [id number] 03:07:00 Test Item Value Reference Range Interpretation Comments AMMONIA (BEAKER) (test code = 348) 48 mol/L 18-72 F-[id number] 02:57:00 Test Item Value Reference Range Interpretation [...] within 95-100% range. URINALYSIS W/ REFLEX URINE [id number] 02:53:00 Test Item Value Reference Range Interpretation [...] = 514) SOURCE(BEAKER) (test code = 2795) [id number] 02:49:00 Test Item Value Reference Range Interpretation Comments PARTIAL THROMBOPLASTIN TIME 39.4 seconds 22.5-36.0 H (BEAKER) (test code = 760) PROTHROMBIN [id number] 02:48:00 Test Item Value Reference Range Interpretation Comments PROTIME (BEAKER) (test code = 22.0 seconds 11.7-14.7 H 759) INR (BEAKER) (test code = 370) 1.9 <=5.9 RECOMMENDED COUMADIN/WARFARIN INR THERAPY RANGESSTANDARD DOSE: 2.0 - 3.0 Includes: PROPHYLAXIS for venous thrombosis, systemic embolization; TREATMENT for venous thrombosis and/or pulmonary embolus.HIGH RISK: Target INR is 2.5-3.5 for patients with mechanical heart valves.[id number] 02:48:00 Test Item Value Reference Range Interpretation Comments FIBRINOGEN LEVEL (BEAKER) (test 421 mg/dl 225-434 code = 658) BLOOD GAS, [id number] 02:43:00 Test Item Value Reference Range Interpretation [...] 21.0 % CBC W/PLT COUNT & AUTO [id number] 02:43:00 Test Item Value Reference Range Interpretation [...] code = 417) 0.00LACTIC ACID, VENOUS, WHOLE [id number] 02:35:00 Test Item Value Reference Range Interpretation Comments LACTATE BLOOD VENOUS (2) (BEAKER) 0.8 mmol/L 0.5-2.2 (test code = 2872) Effective 10/23/2015: Units/Reference Range ChangeNew: 0.5-2.2 mmol/L Previous: 5- 20 mg/dLSpecimen slightly [id number] 11:32:00 Test Item Value Reference Range Interpretation Comments AGAP (test code = AGAP) 14.6 10.0-20.0 [facility]qsYAOMYAEIQQRB4768-13-07 11:32:00 Test Item Value Reference Range Interpretation Comments eGFR (test code = eGFR) 33 [facility] HealthcareZclfwmcNLNMOYIQFIWX1179-42-51 11:32:00 Test Item Value Reference Range Interpretation Comments Calcium Lvl (test code = Calcium Lvl) 8.3 8.5-10.5 [facility] HealthcareShqhhqgNILQSNJINLDC3388-75-55 11:32:00 Test Item Value Reference Range Interpretation Comments Glucose Lvl (test code = Glucose Lvl) 81 70-99 [facility] HealthcareGfqstuzEGDIXUZTYFRZ2696-17-71 11:32:00 Test Item Value Reference Range Interpretation Comments Creatinine Lvl (test code = Creatinine 1.95 0.50-1.40 Lvl) [facility] HealthcareVnkufldSJOCIQLLOEUS5397-54-10 11:32:00 Test Item Value Reference Range Interpretation Comments BUN (test code = BUN) 55 7-22 [facility] HealthcareYdvfendGJIAZCRWBUUF7360-53-00 11:32:00 Test Item Value Reference Range Interpretation Comments CO2 (test code = CO2) 19 24-32 [facility] HealthcareBzvvdfkAFCFVKVCGEPJ7855-76-52 11:32:00 Test Item Value Reference Range Interpretation Comments Chloride Lvl (test code = Chloride Lvl) 110 95-109 [facility] HealthcareFzwlahaWIMHWQCLGBSV5745-21-57 11:32:00 Test Item Value Reference Range Interpretation Comments Sodium Lvl (test code = Sodium Lvl) 139 135-145 [facility] HealthcareUehzeuqJZCFCQURUZYY7281-99-89 11:32:00 Test Item Value Reference Range Interpretation Comments Potassium Lvl (test code = Potassium 4.6 3.5-5.1 Lvl) [facility]MshtkuiYPJPGLCUIX3536-50-90 11:32:00 Test Item Value Reference Range Interpretation Comments Lymphocytes (test code = Lymphocytes) 30.4 20.0-40.0 [facility] WestElmiwilVPMWMHQMUX7099-53-78 11:32:00 Test Item Value Reference Range Interpretation Comments Eosinophils (test code = 4.5 See_Comment [A utomated message] The Eosinophils) system which ge nerated this result tra nsmitted reference range : <=4.0. The reference r leo was not used to int erpret this result as normal/abnormal . [facility] WestDnaocdsLFCMBNXJGW2252-88-05 11:32:00 Test Item Value Reference Range Interpretation Comments Monocytes (test code = Monocytes) 13.7 2.0-12.0 [facility] WestTqusqhfLPYFMGXBFD6452-30-29 11:32:00 Test Item Value Reference Range Interpretation Comments Segs-Bands # (test code = Segs-Bands #) 2.6 1.5-8.1 [facility] WestMgwiaflJUWXMINWAY8500-08-11 11:32:00 Test Item Value Reference Range Interpretation Comments Basophils (test code = 0.7 See_Comment [Aut omated message] The Basophils) system which ge nerated this result tra nsmitted reference range : <=1.0. The reference r leo was not used to int erpret this result as normal/abnormal . [facility] WestLmaswzjKTSUMQKZBO3950-34-17 11:32:00 Test Item Value Reference Range Interpretation Comments Monocytes # (test code 0.7 See_Comment [Aut omated message] The = Monocytes #) system which generated this result tra nsmitted reference range : <=0.8. The reference r leo was not used to int erpret this result as normal/abnormal . [facility] WestLzsbcveUEDWDWIDQZ3965-10-45 11:32:00 Test Item Value Reference Range Interpretation Comments Lymphocytes # (test code = Lymphocytes 1.6 1.0-5.5 #) [facility] WestEubbimwPVJSHJKXVL5352-74-45 11:32:00 Test Item Value Reference Range Interpretation Comments Eosinophils # (test code 0.2 See_Comment [A utomated message] The = Eosinophils #) system ic h generated this result tra nsmitted reference range : <=0.5. The reference r leo was not used to int erpret this result as normal/abnormal . [facility] WestDgcyovqZRQMUCYBXT8822-63-03 11:32:00 Test Item Value Reference Range Interpretation Comments Segs (test code = Segs) 50.7 45.0-75.0 [facility] WestGdycivvZDLTDYWJOU1736-57-93 11:32:00 Test Item Value Reference Range Interpretation [...] iron deficiency anemia, and renal disease. CPT: 31699 [facility] WestAijqxseWYJTMXFDFH8682-53-74 11:32:00 Test Item Value Reference Range Interpretation Comments Hct (test code = Hct) 28.1 36.0-48.0 [facility] WestJyusnqkNUXDUPNTAP9531-17-84 11:32:00 Test Item Value Reference Range Interpretation Comments RBC (test code = RBC) 3.39 4.20-5.40 [facility] WestUrbruolRZRCKIAHIG6167-82-60 11:32:00 Test Item Value Reference Range Interpretation Comments Hgb (test code = Hgb) 8.9 12.0-16.0 [facility] WestKndnkzmQKZECZBPJC6579-57-95 11:32:00 Test Item Value Reference Range Interpretation Comments WBC (test code = WBC) 5.1 3.7-10.4 [facility] WestGxtkgvmWMPAUTKAPB7240-42-36 11:32:00 Test Item Value Reference Range Interpretation Comments MPV (test code = MPV) 11.3 7.4-10.4 [facility] WestGxgqqrfNVJSFGAJJR6605-82-70 11:32:00 Test Item Value Reference Range Interpretation Comments Platelet (test code = Platelet) 118 133-450 [facility] WestLwczjrzIPLAADLUOQ5951-58-11 11:32:00 Test Item Value Reference Range Interpretation Comments MCHC (test code = MCHC) 31.8 32.0-36.0 [facility] WestDllasgdHROXVUTQMR9291-14-40 11:32:00 Test Item Value Reference Range Interpretation Comments RDW (test code = RDW) 18.0 11.5-14.5 [facility] WestUfvjquoGLLVWCSLWU5092-08-34 11:32:00 Test Item Value Reference Range Interpretation Comments MCV (test code = MCV) 83.0 80.0-98.0 [facility] WestWsjvstxDMMHWTUHKD7311-15-87 11:32:00 Test Item Value Reference Range Interpretation Comments MCH (test code = MCH) 26.4 pg 27.0-31.0 [facility] SouthWcnkidjZBXKFUQOJF3862-73-11 11:32:00 Test Item Value Reference Range Interpretation Comments C3 Complement (test code = C3 137 88-201 Complement) [facility] SouthSyfvhutLLZZEEUJHE7790-73-14 11:32:00 Test Item Value Reference Range Interpretation Comments HIV. (test code = Negative *NA*(07/30/16 HIV.) 5:32 AM) [facility] WestBplyhemALRZJIJFWW0482-22-62 11:05:00 Test Item Value Reference Range Interpretation [...] iron deficiency anemia, and renal disease. CPT: 04348 [facility] SouthKxdkddbPPDZBQDGRF8684-50-37 11:05:00 Test Item Value Reference Range Interpretation Comments HIV. (test code = Negative *NA*(07/29/16 HIV.) 5:05 AM) [facility] SouthYsphnoeHDZSQJFFWW8694-28-59 11:05:00 Test Item Value Reference Range Interpretation Comments C3 Complement (test code = C3 92 88-201 Complement) [facility]2017-02-07 15:50:00 Test Item Value Reference Range Interpretation Comments eGFR (test code = eGFR) 25 [facility]2017-02-07 15:50:00 Test Item Value Reference Range Interpretation Comments BUN (test code = BUN) 55 7-22 [facility]2017-02-07 15:50:00 Test Item Value Reference Range Interpretation Comments CO2 (test code = CO2) 23 24-32 [facility]2017-02-07 15:50:00 Test Item Value Reference Range Interpretation Comments Chloride Lvl (test code = Chloride Lvl) 109 95-109 [facility]2017-02-07 15:50:00 Test Item Value Reference Range Interpretation Comments Glucose Lvl (test code = Glucose Lvl) 101 70-99 [facility]2017-02-07 15:50:00 Test Item Value Reference Range Interpretation Comments Potassium Lvl (test code = Potassium 4.0 3.5-5.1 Lvl) [facility]2017-02-07 15:50:00 Test Item Value Reference Range Interpretation Comments Sodium Lvl (test code = Sodium Lvl) 141 135-145 [facility]2017-02-07 15:50:00 Test Item Value Reference Range Interpretation Comments AGAP (test code = AGAP) 13.0 10.0-20.0 [facility]2017-02-07 15:50:00 Test Item Value Reference Range Interpretation Comments Calcium Lvl (test code = Calcium Lvl) 7.7 8.5-10.5 [facility]2017-02-07 15:50:00 Test Item Value Reference Range Interpretation Comments Creatinine Lvl (test code = Creatinine 2.49 0.50-1.40 Lvl) [facility] WestSkmmakkPCHTMTVSXK6973-18-44 15:50:00 Test Item Value Reference Range Interpretation Comments PT (test code = PT) 14.8 s 12.0-14.7 [facility] WestBnsdkakLDRNWPBBAE9047-92-13 15:50:00 Test Item Value Reference Range Interpretation Comments PTT (test code = PTT) 40.8 s 22.9-35.8 [facility] WestVmnbisdHLKGCJSOIC9580-83-26 15:50:00 Test Item Value Reference Range Interpretation Comments INR (test code = INR) 1.14 0.85-1.17 [facility] CenterBavzylaWDJPKPWTGM5693-38-00 15:50:00 Test Item Value Reference Range Interpretation Comments C3 Complement (test code = C3 94 88-201 Complement) [facility] WestIgybvfvYOPKIDZDNC7476-81-96 10:35:00 Test Item Value Reference Range Interpretation Comments Lymphocytes # (test code = Lymphocytes 1.7 1.0-5.5 #) [facility] WestWjqulzgJNUKICTXCF8481-61-51 10:35:00 Test Item Value Reference Range Interpretation Comments Segs-Bands # (test code = Segs-Bands #) 2.7 1.5-8.1 [facility] WestFqsixeiLLQQTHOYCO6994-31-25 10:35:00 Test Item Value Reference Range Interpretation Comments Eosinophils # (test code 0.1 See_Comment [A utomated message] The = Eosinophils #) system [facility] h generated this result tra nsmitted reference range : <=0.5. The reference r leo was not used to int erpret this result as normal/abnormal . [facility] WestSafojjzHDBAONXCFL1487-97-81 10:35:00 Test Item Value Reference Range Interpretation Comments Monocytes # (test code 0.7 See_Comment [Aut omated message] The = Monocytes #) system which generated this result tra nsmitted reference range : <=0.8. The reference r leo was not used to int erpret this result as normal/abnormal . [facility] WestIeztolqNERUIPANNX3122-56-78 10:35:00 Test Item Value Reference Range Interpretation Comments Segs (test code = Segs) 51.3 45.0-75.0 [facility] WestKahsazxTOPKYDHEMZ1759-21-70 10:35:00 Test Item Value Reference Range Interpretation Comments Lymphocytes (test code = Lymphocytes) 31.6 20.0-40.0 [facility] WestNtnenvsCQEEVLFSIL8726-63-00 10:35:00 Test Item Value Reference Range Interpretation Comments Monocytes (test code = Monocytes) 14.1 2.0-12.0 [facility] WestZtrpuhwZTWORLAZAI5981-86-37 10:35:00 Test Item Value Reference Range Interpretation Comments Eosinophils (test code = 2.6 See_Comment [A utomated message] The Eosinophils) system which ge nerated this result tra nsmitted reference range : <=4.0. The reference r leo was not used to int erpret this result as normal/abnormal . [facility] WestHbvphvlUKGQSUGJCX0588-35-10 10:35:00 Test Item Value Reference Range Interpretation Comments Basophils (test code = 0.4 See_Comment [Aut omated message] The Basophils) system which ge nerated this result tra nsmitted reference range : <=1.0. The reference r leo was not used to int erpret this result as normal/abnormal . [facility] WestPpyhnyhPKPBPNVCBB4035-22-02 10:35:00 Test Item Value Reference Range Interpretation Comments PB Smear Path Peripheral blood smear shows (test code = PB hypochromic normocytic Smear Path) anemia with anisopoikilocytsosis, no increase in schistocytes, slight polychromasia, a few estella cells, moderate thrombocytopenia. Impression: (1) no evidence of microangiopathic hemolysis, (2) RBC morphology is suggestive of anemia of chronic disease or iron deficiency anemia, and renal disease. CPT: 71317 [facility] WestGqjwywgUWXTUTRTUC2336-12-80 10:35:00 Test Item Value Reference Range Interpretation Comments Hct (test code = Hct) 29.3 36.0-48.0 [facility] WestCxvzmmcOJMWVJWBQC8096-62-26 10:35:00 Test Item Value Reference Range Interpretation Comments Hgb (test code = Hgb) 9.2 12.0-16.0 [facility] WestErinfpdZLQYTIYYJD0180-90-53 10:35:00 Test Item Value Reference Range Interpretation Comments RBC (test code = RBC) 3.54 4.20-5.40 [facility] WestAvshxoxTYHSGGBKCL4492-81-25 10:35:00 Test Item Value Reference Range Interpretation Comments WBC (test code = WBC) 5.3 3.7-10.4 [facility] WestTjddhneDTCNGFJREA6844-04-49 10:35:00 Test Item Value Reference Range Interpretation Comments Platelet (test code = Platelet) 87 133-450 [facility] WestYjgwbluQPLWVCMSDT5927-76-71 10:35:00 Test Item Value Reference Range Interpretation Comments MCHC (test code = MCHC) 31.4 32.0-36.0 [facility] WestJhfmzzjESLKHLNNCT7405-73-00 10:35:00 Test Item Value Reference Range Interpretation Comments RDW (test code = RDW) 17.9 11.5-14.5 [facility] WestPlhlqamGJSFRKSGSI5903-74-08 10:35:00 Test Item Value Reference Range Interpretation Comments MPV (test code = MPV) 10.9 7.4-10.4 [facility] WestJrbkrzeGFOBTJYYJM1758-77-60 10:35:00 Test Item Value Reference Range Interpretation Comments MCH (test code = MCH) 26.0 pg 27.0-31.0 [facility] WestXufbxzuKLMWXFZBVQ5940-55-14 10:35:00 Test Item Value Reference Range Interpretation Comments MCV (test code = MCV) 82.8 80.0-98.0 [facility] SouthFxwjdfgRCHONMPSLV0086-67-63 10:35:00 Test Item Value Reference Range Interpretation Comments HIV. (test code = Negative *NA*(07/28/16 HIV.) 4:35 AM) [facility] QADQBIF8548-60-67 10:22:00 Test Item Value Reference Range Interpretation Comments Total CK (test code = Total CK) 190 12-191 [facility] [place] [employer] PLWQO8409-76-37 10:22:00 Test Item Value Reference Range Interpretation Comments Calcium Lvl (test code = Calcium Lvl) 7.8 8.5-10.5 [facility] [id number] 10:22:00 Test Item Value Reference Range Interpretation Comments CO2 (test code = CO2) 21 24-32 [facility] [place] [employer] [facility] ISAQL5790-68-78 10:22:00 Test Item Value Reference Range Interpretation Comments Sodium Lvl (test code = Sodium Lvl) 140 135-145 [facility] [place] [employer] [id number] 10:22:00 Test Item Value Reference Range Interpretation Comments Potassium Lvl (test code = Potassium 3.8 3.5-5.1 Lvl) [facility] [place] [employer] [facility] [id number] 10:22:00 Test Item Value Reference Range Interpretation Comments Chloride Lvl (test code = Chloride Lvl) 106 95-109 [facility] [place] [facility] [id number] 10:22:00 Test Item Value Reference Range Interpretation Comments Bili Total (test code = Bili Total) 0.4 0.2-1.3 [facility] [place] [facility] HCHFM4485-69-24 10:22:00 Test Item Value Reference Range Interpretation Comments Alk Phos (test code = Alk Phos) 74 39-136 [facility] [place] [employer] [id number] 10:22:00 Test Item Value Reference Range Interpretation Comments eGFR (test code = eGFR) 19 [facility] [id number] 10:22:00 Test Item Value Reference Range Interpretation Comments Total Protein (test code = Total 5.2 6.4-8.4 Protein) [facility] [id number] 10:22:00 Test Item Value Reference Range Interpretation Comments ALT (test code = ALT) 822 See_Comment [Auto mated message] The system which ge nerated this result transmit rohit reference range : <=65. The reference range was not used to interpr et this result as reji l/abnormal. [facility]2017-02-06 10:22:00 Test Item Value Reference Range Interpretation Comments AST (test code = AST) 205 See_Comment [Auto mated message] The system which ge nerated this result transmit rohit reference range : <=37. The reference range was not used to interpr et this result as reji l/abnormal. [facility]2017-02-06 10:22:00 Test Item Value Reference Range Interpretation Comments Albumin Lvl (test code = Albumin Lvl) 1.8 3.5-5.0 [facility]2017-02-06 10:22:00 Test Item Value Reference Range Interpretation Comments BUN (test code = BUN) 54 7-22 [facility]2017-02-06 10:22:00 Test Item Value Reference Range Interpretation Comments Glucose Lvl (test code = Glucose Lvl) 143 70-99 [facility]2017-02-06 10:22:00 Test Item Value Reference Range Interpretation Comments Creatinine Lvl (test code = Creatinine 3.11 0.50-1.40 Lvl) [facility]2017-02-06 10:22:00 Test Item Value Reference Range Interpretation Comments B/C Ratio (test code = B/C Ratio) 17 6-25 [facility]2017-02-06 10:22:00 Test Item Value Reference Range Interpretation Comments AGAP (test code = AGAP) 16.8 10.0-20.0 [facility]2017-02-06 10:22:00 Test Item Value Reference Range Interpretation Comments Globulin (test code = Globulin) 3.4 2.7-4.2 [facility]2017-02-06 10:22:00 Test Item Value Reference Range Interpretation Comments A/G Ratio (test code = A/G Ratio) 0.5 0.7-1.6 [facility]2017-02-06 10:22:00 Test Item Value Reference Range Interpretation Comments Magnesium Lvl (test code = Magnesium 2.0 1.8-2.4 Lvl) [facility]2017-02-06 10:22:00 Test Item Value Reference Range Interpretation Comments Phosphorus (test code = Phosphorus) 3.7 2.5-4.5 [facility] We[id number] 10:22:00 Test Item Value Reference Range Interpretation Comments RDW (test code = RDW) 17.7 11.5-14.5 [facility] WestJdhgtldDOVOSQLKCZ7363-95-57 10:22:00 Test Item Value Reference Range Interpretation Comments MCHC (test code = MCHC) 32.9 32.0-36.0 [facility] WestExpufvlYQSUHHAMXZ4319-44-88 10:22:00 Test Item Value Reference Range Interpretation Comments Hct (test code = Hct) 25.4 36.0-48.0 [facility] WestIifpbomDFJOJMVCFS9158-15-99 10:22:00 Test Item Value Reference Range Interpretation Comments MCH (test code = MCH) 26.4 pg 27.0-31.0 [facility] WestXfbforfVSLXDZAJIM8539-21-47 10:22:00 Test Item Value Reference Range Interpretation Comments MCV (test code = MCV) 80.3 80.0-98.0 [facility] WestPossbwbTTOVHOOJKA7492-16-13 10:22:00 Test Item Value Reference Range Interpretation Comments MPV (test code = MPV) 11.4 7.4-10.4 [facility] WestLlnlfghWSNRRGXTHM9667-44-68 10:22:00 Test Item Value Reference Range Interpretation Comments Platelet (test code = Platelet) 74 133-450 [facility] WestMkwveayEXOGZFYTNL8384-13-25 10:22:00 Test Item Value Reference Range Interpretation Comments RBC (test code = RBC) 3.16 4.20-5.40 [facility] WestNwbdenqFVZOTFGXKG3592-01-89 10:22:00 Test Item Value Reference Range Interpretation Comments WBC (test code = WBC) 5.3 3.7-10.4 [facility] WestOiaelyxBXSEHULDJE7379-63-69 10:22:00 Test Item Value Reference Range Interpretation Comments Hgb (test code = Hgb) 8.4 12.0-16.0 [facility] WestSykbvndVGNHBWFPUL6140-27-09 10:22:00 Test Item Value Reference Range Interpretation Comments Monocytes (test code = Monocytes) 14.5 2.0-12.0 [facility] WestHetwbzxKOOBIOBWBL8329-14-21 10:22:00 Test Item Value Reference Range Interpretation Comments Lymphocytes (test code = Lymphocytes) 29.8 20.0-40.0 [facility] WestAmtmutxCTKOIZQIGF3323-28-29 10:22:00 Test Item Value Reference Range Interpretation Comments Eosinophils # (test code 0.1 See_Comment [A utomated message] The = Eosinophils #) system whic h generated this result tra nsmitted reference range : <=0.5. The reference r leo was not used to int erpret this result as normal/abnormal . [facility] WestBuuaqysCGMUKHCUCJ5328-30-25 10:22:00 Test Item Value Reference Range Interpretation Comments Monocytes # (test code 0.8 See_Comment [Aut omated message] The = Monocytes #) system which generated this result tra nsmitted reference range : <=0.8. The reference r leo was not used to int erpret this result as normal/abnormal . [facility] WestVbagvvoDAZETNTHQC7853-09-09 10:22:00 Test Item Value Reference Range Interpretation Comments Segs-Bands # (test code = Segs-Bands #) 2.9 1.5-8.1 [facility] WestPdvaqfcKPRLMBLHUB3273-52-03 10:22:00 Test Item Value Reference Range Interpretation Comments Lymphocytes # (test code = Lymphocytes 1.6 1.0-5.5 #) [facility] WestOsxzgivPBCPBZGARK5500-07-97 10:22:00 Test Item Value Reference Range Interpretation Comments Basophils (test code = 0.4 See_Comment [Aut omated message] The Basophils) system which ge nerated this result tra nsmitted reference range : <=1.0. The reference r leo was not used to int erpret this result as normal/abnormal . [facility] WestMgummcdNAZHRCHDNR2364-98-82 10:22:00 Test Item Value Reference Range Interpretation Comments Eosinophils (test code = 1.2 See_Comment [A utomated message] The Eosinophils) system which ge nerated this result tra nsmitted reference range : <=4.0. The reference r loe was not used to int erpret this result as normal/abnormal . [facility] WestDmqqolnOSKBJHZOED1651-24-69 10:22:00 Test Item Value Reference Range Interpretation Comments Segs (test code = Segs) 54.1 45.0-75.0 [facility] [id number] 10:22:00 Test Item Value Reference Range Interpretation Comments Hgb A1C (test code = Hgb A1C) 8.9 [facility] CenterCARDIAC [id number] 17:40:00 Test Item Value Reference Range Interpretation Comments Total CK (test code = Total CK) 344 12-191 [facility] CenterIkglfuqHWSZDDDUAE9396-35-50 17:40:00 Test Item Value Reference Range Interpretation Comments IVETTE (test code = IVETTE) Positive *ABN*(07/26/16 11:40 AM) [facility]bergNvnhgvmTNPETYJITY6548-55-41 17:40:00 Test Item Value Reference Range Interpretation Comments 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 [facility] KlebergInshofoHJBEOGFDYT1187-83-43 17:40:00 Test Item Value Reference Range Interpretation Comments SS-B (La) Ab (test code = SS-B (La) Ab) no gt [facility] CenterSnfxlylSWOJBUPDHE5976-34-26 17:40:00 Test Item Value Reference Range Interpretation Comments SS-A (Ro) Ab (test code = SS-A (Ro) Ab) no gt [facility] KlebergRizhxdjHMMEFTUPTP8854-48-49 17:40:00 Test Item Value Reference Range Interpretation Comments DNA Ab (DS) (test Negative (07/26/16 11:40 code = DNA Ab (DS)) AM) [facility]bergWlfseaqIEFBIWVZYY8426-60-91 17:40:00 Test Item Value Reference Range Interpretation Comments IVETTE Titer (test code = 1:40 *ABN*(07/26/16 IVETTE Titer) 11:40 AM) [facility] [id number] 17:40:00 Test Item Value Reference Range Interpretation Comments U Sodium (test code = U Sodium) 21 [facility] CenterEyrieduUOIQKZTZFM6096-61-16 14:00:00 Test Item Value Reference Range Interpretation Comments INR (test code = INR) 1.11 0.85-1.17 [facility] CenterEzzejykYTOZFBVHCE6237-73-43 14:00:00 Test Item Value Reference Range Interpretation Comments PT (test code = PT) 14.5 s 12.0-14.7 [facility] CenterKdlltlfHDSWJSGQHS7112-22-50 14:00:00 Test Item Value Reference Range Interpretation Comments Hep A IgM (test code Negative *NA*(07/26/16 = Hep A IgM) 8:00 AM) [facility] CenterBxmgmraAORWJPRYKD4586-09-16 14:00:00 Test Item Value Reference Range Interpretation Comments Hep B Core IgM (test Negative *NA*(07/26/16 code = Hep B Core 8:00 AM) IgM) [facility] CenterIwtqyviYJLTJOVSZM8021-88-89 14:00:00 Test Item Value Reference Range Interpretation Comments Hep C Ab (test code = Negative *NA*(07/26/16 Hep C Ab) 8:00 AM) [facility] CenterVyiptuvQLHZZSAGUK7684-15-87 14:00:00 Test Item Value Reference Range Interpretation Comments Hep Bs Ag (test code Negative *NA*(07/26/16 = Hep Bs Ag) 8:00 AM) [facility]2017-02-05 10:42:00 Test Item Value Reference Range Interpretation Comments B/C Ratio (test code = B/C Ratio) 17 6-25 [facility]2017-02-05 10:42:00 Test Item Value Reference Range Interpretation Comments ALT (test code = ALT) 1232 See_Comment [Auto mated message] The system which ge nerated this result transmit rohit reference range : <=65. The reference range was not used to interpr et this result as reji l/abnormal. [facility]2017-02-05 10:42:00 Test Item Value Reference Range Interpretation Comments A/G Ratio (test code = A/G Ratio) 0.5 0.7-1.6 [facility]2017-02-05 10:42:00 Test Item Value Reference Range Interpretation Comments Bili Total (test code = Bili Total) 0.3 0.2-1.3 [facility]2017-02-05 10:42:00 Test Item Value Reference Range Interpretation Comments Alk Phos (test code = Alk Phos) 79 39-136 [facility]2017-02-05 10:42:00 Test Item Value Reference Range Interpretation Comments AST (test code = AST) 586 See_Comment [Auto mated message] The system which ge nerated this result transmit rohit reference range : <=37. The reference range was not used to interpr et this result as reji l/abnormal. [facility] CenterFocal Therapeutics [id number] 10:42:00 Test Item Value Reference Range Interpretation Comments Total Protein (test code = Total 5.5 6.4-8.4 Protein) [facility] [id number] 10:42:00 Test Item Value Reference Range Interpretation Comments Globulin (test code = Globulin) 3.7 2.7-4.2 [facility] [id number] 10:42:00 Test Item Value Reference Range Interpretation Comments Albumin Lvl (test code = Albumin Lvl) 1.8 3.5-5.0 [facility]2017-02-05 10:42:00 Test Item Value Reference Range Interpretation Comments Magnesium Lvl (test code = Magnesium 2.1 1.8-2.4 Lvl) [facility] WestUjwmefhKRIKDUIHCX0917-08-75 10:42:00 Test Item Value Reference Range Interpretation Comments Acanthocyte (test code = Acanthocyte) Slight [facility] WestCwsoomlURISZIIASC0347-05-26 10:42:00 Test Item Value Reference Range Interpretation Comments Rouleaux (test code = Present *ABN*(07/26/16 Rouleaux) 4:42 AM) [facility] WestVjymzdfTMVKQUCQPF0017-16-86 10:42:00 Test Item Value Reference Range Interpretation Comments Anisocyte (test code = 1+ *ABN*(07/26/16 4:42 Anisocyte) AM) [facility] WestPaofuobLKFBORIKBZ2708-64-89 10:42:00 Test Item Value Reference Range Interpretation Comments Basophils # (test code 0.1 See_Comment [Aut omated message] The = Basophils #) system which generated this result tra nsmitted reference range : <=0.2. The reference r leo was not used to int erpret this result as normal/abnormal . [facility] CenterKgfvcbhMXFZWTMIWV4726-01-20 10:42:00 Test Item Value Reference Range Interpretation Comments Large Plt (test code Moderate *ABN*(07/26/16 = Large Plt) 4:42 AM) [facility] CenterAjqtdtyMNKQWDKRIJ3832-64-36 10:42:00 Test Item Value Reference Range Interpretation Comments C4 Complement (test code = C4 42 16-47 Complement) [facility] AND [id number] 16:34:00 Test Item Value Reference Range Interpretation Comments UA Sq Epi (test code = UA Sq Epi) None Seen [facility] AND [id number] 16:34:00 Test Item Value Reference Range Interpretation Comments UA Waxy Cast (test code = UA Waxy Cast) 1 [facility] AND [id number] 16:34:00 Test Item Value Reference Range Interpretation Comments UA Hyal Cast (test 4 See_Comment [Automat ed message] The code = UA Hyal Cast) system which generated this result transmit rohit reference range : <=2. The reference range was not used to interpr et this result as reji l/abnormal. [facility] AND [id number] 16:34:00 Test Item Value Reference Range Interpretation Comments UA Bacteria (test code = UA Occasional /HPF Bacteria) [facility] AND [id number] 16:34:00 Test Item Value Reference Range Interpretation Comments UA Mucus (test code = UA Mucus) Few /LPF [facility] AND [id number] 16:34:00 Test Item Value Reference Range Interpretation Comments UA Amorph Destiny (test code = Occasional /HPF UA Amorph Destiny) [facility] AND [id number] 16:34:00 Test Item Value Reference Range Interpretation Comments UA Leuk Est (test Negative (07/25/16 10:34 code = UA Leuk Est) AM) [facility] AND [id number] 16:34:00 Test Item Value Reference Range Interpretation Comments UA Nitrite (test code Negative (07/25/16 10:34 = UA Nitrite) AM) [facility] AND [id number] 16:34:00 Test Item Value Reference Range Interpretation Comments UA RBC (test code = 2 See_Comment [Automa rohit message] The UA RBC) system which ge nerated this result transmit rohit reference range : <=2. The reference range was not used to interpr et this result as reji l/abnormal. [facility] AND [id number] 16:34:00 Test Item Value Reference Range Interpretation Comments UA WBC (test code = 6 See_Comment [Automa rohit message] The UA WBC) system which ge nerated this result transmit rohit reference range : <=5. The reference range was not used to interpr et this result as reji l/abnormal. [facility] AND [id number] 16:34:00 Test Item Value Reference Range Interpretation Comments UA Urobilinogen (test code = UA 2.0 0.1-1.0 Urobilinogen) [facility] AND [id number] 16:34:00 Test Item Value Reference Range Interpretation Comments UA Ketones (test code = UA Negative mg/dL Ketones) [facility] AND [id number] 16:34:00 Test Item Value Reference Range Interpretation Comments UA Glucose (test code = UA Glucose) 70 mg/dL [facility] AND [id number] 16:34:00 Test Item Value Reference Range Interpretation Comments UA Blood (test code = Negative (07/25/16 10:34 UA Blood) AM) [facility] AND [id number] 16:34:00 Test Item Value Reference Range Interpretation Comments UA Bili (test code = Negative *NA*(07/25/16 UA Bili) 10:34 AM) [facility] AND [id number] 16:34:00 Test Item Value Reference Range Interpretation Comments UA Protein (test code = UA >=300 mg/dL Protein) [facility] AND [id number] 16:34:00 Test Item Value Reference Range Interpretation Comments UA Spec Grav (test code = UA Spec Grav) 1.012 [facility] AND [id number] 16:34:00 Test Item Value Reference Range Interpretation Comments UA pH (test code = UA pH) 5.5 5.0-8.0 [facility] AND [id number] 16:34:00 Test Item Value Reference Range Interpretation Comments UA Turbidity (test code Slight *ABN*(07/25/16 = UA Turbidity) 10:34 AM) [facility] AND [id number] 16:34:00 Test Item Value Reference Range Interpretation Comments UA Color (test code = Dark Yellow *NA*(07/25/16 UA Color) 10:34 AM) [facility] AND [id number] 16:34:00 Test Item Value Reference Range Interpretation Comments UA Gran Cast (test code = UA Gran Cast) 9 [facility] [id number] 16:34:00 Test Item Value Reference Range Interpretation Comments U Sodium (test code = U Sodium) 30 [facility] [id number] 16:34:00 Test Item Value Reference Range Interpretation Comments U Prot/Creat (test code = U Prot/Creat) 3.1 [facility] [id number] 16:34:00 Test Item Value Reference Range Interpretation Comments U Protein (test code = U Protein) 420.9 [facility] [id number] 16:34:00 Test Item Value Reference Range Interpretation Comments U Creatinine (test code = U 136.00 Creatinine) [facility] [employer] [id number] 08:55:00 Test Item Value Reference Range Interpretation Comments Magnesium Lvl (test code = Magnesium 2.0 1.8-2.4 Lvl) [facility] [place] [employer] [facility] [id number] 08:55:00 Test Item Value Reference Range Interpretation Comments Phosphorus (test code = Phosphorus) 5.2 2.5-4.5 [facility] [employer]2017-02-03 17:29:00 Test Item Value Reference Range Interpretation Comments Troponin-I (test code 0.28 See_Comment [Auto mated message] The = Troponin-I) system which g enerated this result transmit rohit reference range : <=0.40. The reference r leo was not used to interpr et this result as reji l/abnormal. [facility] [employer]2017-02-03 17:29:00 Test Item Value Reference Range Interpretation Comments Total CK (test code = Total CK) 2616 12-191 [facility] 17:29:00 Test Item Value Reference Range Interpretation Comments Troponin-T (test code 0.144 See_Comment [Auto mated message] The = Troponin-T) system which g enerated this result transmit rohit reference range : <=0.100. The reference r leo was not used to interpr et this result as reji l/abnormal. [facility] [employer]2017-02-03 17:29:00 Test Item Value Reference Range Interpretation Comments CK MB Index (test 0.2 See_Comment [Automate d message] The code = CK MB Index) system w [facility] generated this result transmit rohit reference range : <=2.5. The reference range was not used to interpr et this result as reji l/abnormal. [facility] [employer]2017-02-03 17:29:00 Test Item Value Reference Range Interpretation Comments CK MB (test code = CK MB) 6.3 0.5-3.6 [facility] [employer]2017-02-03 11:20:00 Test Item Value Reference Range Interpretation Comments Troponin-I (test code 0.38 See_Comment [Auto mated message] The = Troponin-I) system which g enerated this result transmit rohit reference range : <=0.40. The reference r leo was not used to interpr et this result as reji l/abnormal. [facility] [employer]2017-02-03 11:20:00 Test Item Value Reference Range Interpretation Comments Troponin-T (test code 0.173 See_Comment [Auto mated message] The = Troponin-T) system which g enerated this result transmit rohit reference range : <=0.100. The reference r leo was not used to interpr et this result as reji l/abnormal. [facility] [employer]2017-02-03 11:20:00 Test Item Value Reference Range Interpretation Comments CK MB Index (test 0.2 See_Comment [Automate d message] The code = CK MB Index) system w [facility] generated this result transmit rohit reference range : <=2.5. The reference range was not used to interpr et this result as reji l/abnormal. [facility] [employer]2017-02-03 11:20:00 Test Item Value Reference Range Interpretation Comments CK MB (test code = CK MB) 5.6 0.5-3.6 [facility] [employer]2017-02-03 11:20:00 Test Item Value Reference Range Interpretation Comments Phosphorus (test code = Phosphorus) 5.5 2.5-4.5 [facility] [employer]2017-02-03 06:18:00 Test Item Value Reference Range Interpretation Comments BNP (test code = BNP) 701 [facility] [employer]2017-02-03 04:59:27 Test Item Value Reference Range Interpretation Comments Troponin-I (test code 0.57 See_Comment [Auto mated message] The = Troponin-I) system which g enerated this result transmit rohit reference range : <=0.40. The reference r leo was not used to interpr et this result as reji l/abnormal. [employer]2016-12-26 10:22:00 Test Item Value Reference Range Interpretation Comments BNP (test code = BNP) 526 [facility]2016-12-26 10:22:00 Test Item Value Reference Range Interpretation Comments Magnesium Lvl (test code = Magnesium 2.1 1.8-2.4 Lvl) [facility]2016-12-26 10:22:00 Test Item Value Reference Range Interpretation Comments Glucose Lvl (test code = Glucose Lvl) 117 70-99 [facility]2016-12-26 10:22:00 Test Item Value Reference Range Interpretation Comments BUN (test code = BUN) 41 7-22 [facility]2016-12-26 10:22:00 Test Item Value Reference Range Interpretation Comments Creatinine Lvl (test code = Creatinine 2.00 0.50-1.40 Lvl) [facility]2016-12-26 10:22:00 Test Item Value Reference Range Interpretation Comments Calcium Lvl (test code = Calcium Lvl) 9.0 8.5-10.5 [facility]2016-12-26 10:22:00 Test Item Value Reference Range Interpretation Comments Chloride Lvl (test code = Chloride Lvl) 102 95-109 [facility]2016-12-26 10:22:00 Test Item Value Reference Range Interpretation Comments CO2 (test code = CO2) 33 24-32 [facility]2016-12-26 10:22:00 Test Item Value Reference Range Interpretation Comments Sodium Lvl (test code = Sodium Lvl) 144 135-145 [facility]2016-12-26 10:22:00 Test Item Value Reference Range Interpretation Comments Potassium Lvl (test code = Potassium 4.0 3.5-5.1 Lvl) [facility]2016-12-26 10:22:00 Test Item Value Reference Range Interpretation Comments eGFR (test code = eGFR) 32 [facility]2016-12-26 10:22:00 Test Item Value Reference Range Interpretation Comments AGAP (test code = AGAP) 13.0 10.0-20.0 [facility]2016-12-26 10:22:00 Test Item Value Reference Range Interpretation Comments Phosphorus (test code = Phosphorus) 4.6 2.5-4.5 [id number] 10:22:00 Test Item Value Reference Range Interpretation Comments RBC (test code = RBC) 3.68 4.20-5.40 [facility] [id number] 10:22:00 Test Item Value Reference Range Interpretation Comments Hgb (test code = Hgb) 9.9 12.0-16.0 [facility] WestGlogbdsXCLKWIPDLB3232-37-81 10:22:00 Test Item Value Reference Range Interpretation Comments MCH (test code = MCH) 26.8 pg 27.0-31.0 [facility] [id number] 10:22:00 Test Item Value Reference Range Interpretation Comments MCHC (test code = MCHC) 34.2 32.0-36.0 [facility] WestRduqdnjJSXMARAHCY8303-43-05 10:22:00 Test Item Value Reference Range Interpretation Comments MCV (test code = MCV) 78.3 80.0-98.0 [facility] WestIphabweFKNLTLWMTN2889-33-96 10:22:00 Test Item Value Reference Range Interpretation Comments Hct (test code = Hct) 28.8 36.0-48.0 [facility] We[id number] 10:22:00 Test Item Value Reference Range Interpretation Comments Platelet (test code = Platelet) 191 133-450 [facility] We[id number] 10:22:00 Test Item Value Reference Range Interpretation Comments MPV (test code = MPV) 9.5 7.4-10.4 [facility] WestWjxnynvFZIJNPVNCN8834-82-79 10:22:00 Test Item Value Reference Range Interpretation Comments RDW (test code = RDW) 15.3 11.5-14.5 [facility] WestFjaijxkBZLUBJFPHF5427-94-35 10:22:00 Test Item Value Reference Range Interpretation Comments WBC (test code = WBC) 5.6 3.7-10.4 [facility] [id number] 10:22:00 Test Item Value Reference Range Interpretation Comments Eosinophils # (test code 0.5 See_Comment [A utomated message] The = Eosinophils #) system whic h generated this result tra nsmitted reference range : <=0.5. The reference r leo was not used to int erpret this result as normal/abnormal . [facility] WestPuddvseDBQACZLGHK0222-61-81 10:22:00 Test Item Value Reference Range Interpretation Comments Microcyte (test code = 1+ *ABN*(06/15/16 Microcyte) 4:22 AM) [facility] WestWvycufnSNBBIISBNJ9316-34-68 10:22:00 Test Item Value Reference Range Interpretation Comments Basophils # (test code 0.1 See_Comment [Aut omated message] The = Basophils #) system which generated this result tra nsmitted reference range : <=0.2. The reference r leo was not used to int erpret this result as normal/abnormal . [facility] WestDfojcvpAJRXOKBYCN4712-52-62 10:22:00 Test Item Value Reference Range Interpretation Comments Lymphocytes (test code = Lymphocytes) 33.5 20.0-40.0 [facility] WestXkwbbcgUPWGQINCAZ4744-14-57 10:22:00 Test Item Value Reference Range Interpretation Comments Segs (test code = Segs) 47.6 45.0-75.0 [facility] WestMfuaqyiXNSXFCLQBI8873-15-46 10:22:00 Test Item Value Reference Range Interpretation Comments Monocytes (test code = Monocytes) 8.4 2.0-12.0 [facility] WestLfeqhpaEYFRAPDJRN4100-81-82 10:22:00 Test Item Value Reference Range Interpretation Comments Eosinophils (test code = 9.4 See_Comment [A utomated message] The Eosinophils) system which ge nerated this result tra nsmitted reference range : <=4.0. The reference r leo was not used to int erpret this result as normal/abnormal . [facility] WestYitgtqkBSPAQUOVTT3423-21-44 10:22:00 Test Item Value Reference Range Interpretation Comments Segs-Bands # (test code = Segs-Bands #) 2.6 1.5-8.1 [facility]RrcckoiRMTDXYAOGO3925-00-97 10:22:00 Test Item Value Reference Range Interpretation Comments Lymphocytes # (test code = Lymphocytes 1.9 1.0-5.5 #) [facility] WestHohizirMNRUHJJZDL1682-39-88 10:22:00 Test Item Value Reference Range Interpretation Comments Basophils (test code = 1.1 See_Comment [Aut omated message] The Basophils) system which ge nerated this result tra nsmitted reference range : <=1.0. The reference r leo was not used to int erpret this result as normal/abnormal . [facility] WestNnkveouROTDHRHYNO0253-34-98 10:22:00 Test Item Value Reference Range Interpretation Comments Monocytes # (test code 0.5 See_Comment [Aut omated message] The = Monocytes #) system which generated this result tra nsmitted reference range : <=0.8. The reference r leo was not used to int erpret this result as normal/abnormal . [facility]2016-12-25 11:03:00 Test Item Value Reference Range Interpretation Comments Phosphorus (test code = Phosphorus) 4.8 2.5-4.5 [facility]2016-12-25 11:03:00 Test Item Value Reference Range Interpretation Comments Magnesium Lvl (test code = Magnesium 2.0 1.8-2.4 Lvl) [facility]2016-12-25 11:03:00 Test Item Value Reference Range Interpretation Comments eGFR (test code = eGFR) 32 [facility]2016-12-25 11:03:00 Test Item Value Reference Range Interpretation Comments Chloride Lvl (test code = Chloride Lvl) 101 95-109 [facility]2016-12-25 11:03:00 Test Item Value Reference Range Interpretation Comments Potassium Lvl (test code = Potassium 4.4 3.5-5.1 Lvl) [facility]2016-12-25 11:03:00 Test Item Value Reference Range Interpretation Comments BUN (test code = BUN) 37 7-22 [facility]2016-12-25 11:03:00 Test Item Value Reference Range Interpretation Comments Glucose Lvl (test code = Glucose Lvl) 119 70-99 [facility]2016-12-25 11:03:00 Test Item Value Reference Range Interpretation Comments Creatinine Lvl (test code = Creatinine 2.00 0.50-1.40 Lvl) [facility]2016-12-25 11:03:00 Test Item Value Reference Range Interpretation Comments Sodium Lvl (test code = Sodium Lvl) 142 135-145 [facility]2016-12-25 11:03:00 Test Item Value Reference Range Interpretation Comments Calcium Lvl (test code = Calcium Lvl) 8.7 8.5-10.5 [facility]2016-12-25 11:03:00 Test Item Value Reference Range Interpretation Comments CO2 (test code = CO2) 32 24-32 [facility]2016-12-25 11:03:00 Test Item Value Reference Range Interpretation Comments AGAP (test code = AGAP) 13.4 10.0-20.0 [facility] WestGdvuujwAXGTXYNIHA3103-22-08 11:03:00 Test Item Value Reference Range Interpretation Comments Eosinophils (test code = 10.3 See_Comment [A utomated message] The Eosinophils) system which ge nerated this result tra nsmitted reference range : <=4.0. The reference r leo was not used to int erpret this result as normal/abnormal . [facility] WestLarhsjeFMSNAZXVHD5974-91-82 11:03:00 Test Item Value Reference Range Interpretation Comments Basophils # (test code 0.1 See_Comment [Aut omated message] The = Basophils #) system which generated this result tra nsmitted reference range : <=0.2. The reference r leo was not used to int erpret this result as normal/abnormal . [facility] WestSlrctujQAOEBMWQYH4568-86-47 11:03:00 Test Item Value Reference Range Interpretation Comments Eosinophils # (test code 0.5 See_Comment [A utomated message] The = Eosinophils #) system whic h generated this result tra nsmitted reference range : <=0.5. The reference r leo was not used to int erpret this result as normal/abnormal . [facility] WestIqduorqWSOYKOQMFR4208-95-64 11:03:00 Test Item Value Reference Range Interpretation Comments Monocytes # (test code 0.5 See_Comment [Aut omated message] The = Monocytes #) system which generated this result tra nsmitted reference range : <=0.8. The reference r leo was not used to int erpret this result as normal/abnormal . [facility] WestTndzzijWCSBCKAUBF3718-72-42 11:03:00 Test Item Value Reference Range Interpretation Comments Segs-Bands # (test code = Segs-Bands #) 2.1 1.5-8.1 [facility] WestXibmtcsHAHYHYGGGK5984-78-35 11:03:00 Test Item Value Reference Range Interpretation Comments Basophils (test code = 1.2 See_Comment [Aut omated message] The Basophils) system which ge nerated this result tra nsmitted reference range : <=1.0. The reference r leo was not used to int erpret this result as normal/abnormal . [facility] WestNputlgeSMPAIPFRVG3697-65-36 11:03:00 Test Item Value Reference Range Interpretation Comments Lymphocytes # (test code = Lymphocytes 1.9 1.0-5.5 #) [facility] WestDzdmdhgECJZDOXNUN7277-56-12 11:03:00 Test Item Value Reference Range Interpretation Comments Segs (test code = Segs) 42.5 45.0-75.0 [facility] WestWqaxechPMXLMYOEKI1800-05-00 11:03:00 Test Item Value Reference Range Interpretation Comments Lymphocytes (test code = Lymphocytes) 37.0 20.0-40.0 [facility] WestGgqstwhFRXWSKXYII5737-76-56 11:03:00 Test Item Value Reference Range Interpretation Comments Monocytes (test code = Monocytes) 9.0 2.0-12.0 [facility] WestBgddhczEKHZQHXDSE6186-73-06 11:03:00 Test Item Value Reference Range Interpretation Comments MPV (test code = MPV) 9.8 7.4-10.4 [facility] WestFqxpkdwFVTOLQHBFG7848-08-89 11:03:00 Test Item Value Reference Range Interpretation Comments WBC (test code = WBC) 5.0 3.7-10.4 [facility] WestFqupatjPNNWEBSRQA2287-64-14 11:03:00 Test Item Value Reference Range Interpretation Comments RBC (test code = RBC) 3.57 4.20-5.40 [facility] WestEsxcgxbSWYPPZWAFY2482-98-34 11:03:00 Test Item Value Reference Range Interpretation Comments Hgb (test code = Hgb) 9.4 12.0-16.0 [facility] WestKmfdpzgBGKDXJGHHJ6500-81-17 11:03:00 Test Item Value Reference Range Interpretation Comments Hct (test code = Hct) 28.5 36.0-48.0 [facility] WestRoqjvqgABXFUWEILH4691-52-30 11:03:00 Test Item Value Reference Range Interpretation Comments Platelet (test code = Platelet) 183 133-450 [facility] WestDvrbnqnWMLZXVAVDZ2869-46-77 11:03:00 Test Item Value Reference Range Interpretation Comments MCV (test code = MCV) 79.9 80.0-98.0 [facility] WestMpvamccPCCJOTAGNW9304-15-72 11:03:00 Test Item Value Reference Range Interpretation Comments MCH (test code = MCH) 26.3 pg 27.0-31.0 [facility] WestBqelvruASNPATTKYP7269-53-73 11:03:00 Test Item Value Reference Range Interpretation Comments MCHC (test code = MCHC) 33.0 32.0-36.0 [facility] WestZkipyigSVHXLNTXRF0776-90-39 11:03:00 Test Item Value Reference Range Interpretation [...] = U Protein) 133.1 [facility] WestJtujewySMZTTCXIDH8343-53-76 09:20:00 Test Item Value Reference Range Interpretation Comments MPV (test code = MPV) 9.7 7.4-10.4 [facility] WestRslautdHRGRLYPDJZ5342-90-13 09:20:00 Test Item Value Reference Range Interpretation Comments Platelet (test code = Platelet) 184 133-450 [facility] WestHrjxjcrZPGNYAQOSA7197-94-72 09:20:00 Test Item Value Reference Range Interpretation Comments RDW (test code = RDW) 15.9 11.5-14.5 [facility] WestIpctmxuFIZHGVHPAN1964-71-24 09:20:00 Test Item Value Reference Range Interpretation Comments MCV (test code = MCV) 79.3 80.0-98.0 [facility] WestJzucccyIRXOATBOJS7602-31-42 09:20:00 Test Item Value Reference Range Interpretation Comments MCHC (test code = MCHC) 33.0 32.0-36.0 [facility] WestMfdclbhLVNRIYLIGH6504-63-49 09:20:00 Test Item Value Reference Range Interpretation Comments MCH (test code = MCH) 26.2 pg 27.0-31.0 [facility] WestLylihsdCSCGNWXDKU3730-27-03 09:20:00 Test Item Value Reference Range Interpretation Comments Hct (test code = Hct) 29.4 36.0-48.0 [facility] WestQlcadpcWLNGFKUWZC7612-67-59 09:20:00 Test Item Value Reference Range Interpretation Comments Hgb (test code = Hgb) 9.7 12.0-16.0 [facility] WestTzfboblGGKKTBQWWW5766-19-32 09:20:00 Test Item Value Reference Range Interpretation Comments RBC (test code = RBC) 3.70 4.20-5.40 [facility] WestSvwxvzcFDWXFNOUFX8747-48-69 09:20:00 Test Item Value Reference Range Interpretation Comments WBC (test code = WBC) 5.7 3.7-10.4 [facility] WestHslutukQYYGHMJMPW2257-55-93 09:20:00 Test Item Value Reference Range Interpretation Comments Basophils # (test code 0.1 See_Comment [Aut omated message] The = Basophils #) system which generated this result tra nsmitted reference range : <=0.2. The reference r leo was not used to int erpret this result as normal/abnormal . [facility] WestYozmfneRZPSDGDQRE7065-47-02 09:20:00 Test Item Value Reference Range Interpretation Comments Lymphocytes # (test code = Lymphocytes 2.2 1.0-5.5 #) [facility] WestLerdmhyVXGFWBTNZL0209-55-91 09:20:00 Test Item Value Reference Range Interpretation Comments Eosinophils # (test code 0.5 See_Comment [A utomated message] The = Eosinophils #) system wh h generated this result tra nsmitted reference range : <=0.5. The reference r leo was not used to int erpret this result as normal/abnormal . [facility] WestIhhcqvyFWXSYVOZGU8166-84-04 09:20:00 Test Item Value Reference Range Interpretation Comments Monocytes # (test code 0.5 See_Comment [Aut omated message] The = Monocytes #) system which generated this result tra nsmitted reference range : <=0.8. The reference r leo was not used to int erpret this result as normal/abnormal . [facility] WestUbxjxdkOECGMEIRKV5585-62-70 09:20:00 Test Item Value Reference Range Interpretation Comments Basophils (test code = 1.1 See_Comment [Aut omated message] The Basophils) system which ge nerated this result tra nsmitted reference range : <=1.0. The reference r leo was not used to int erpret this result as normal/abnormal . [facility] WestIuebdjhHLBZVTPQFC6765-88-95 09:20:00 Test Item Value Reference Range Interpretation Comments Segs-Bands # (test code = Segs-Bands #) 2.3 1.5-8.1 [facility] WestFarcxujHXOWIBIAES1224-80-52 09:20:00 Test Item Value Reference Range Interpretation Comments Eosinophils (test code = 9.5 See_Comment [A utomated message] The Eosinophils) system which ge nerated this result tra nsmitted reference range : <=4.0. The reference r leo was not used to int erpret this result as normal/abnormal . [facility] WestGueewioQFSXDCCIGN2483-66-88 09:20:00 Test Item Value Reference Range Interpretation Comments Monocytes (test code = Monocytes) 9.0 2.0-12.0 [facility] WestOodtdgvSOLHLZJGRT5112-35-16 09:20:00 Test Item Value Reference Range Interpretation Comments Lymphocytes (test code = Lymphocytes) 38.9 20.0-40.0 [facility] WestNrkwyuqGYMOABCZNX2793-86-26 09:20:00 Test Item Value Reference Range Interpretation Comments Segs (test code = Segs) 41.5 45.0-75.0 [facility]2016-12-24 06:34:00 Test Item Value Reference Range Interpretation Comments Magnesium Lvl (test code = Magnesium 1.7 1.8-2.4 Lvl) [facility]2016-12-24 06:34:00 Test Item Value Reference Range Interpretation Comments Phosphorus (test code = Phosphorus) 4.2 2.5-4.5 [facility] HealthcareNuymziaDFMUTIIWEILH6931-15-23 06:34:00 Test Item Value Reference Range Interpretation Comments AGAP (test code = AGAP) 14.3 10.0-20.0 [facility] HealthcareMfqvesaYZAIJVDMEJOL4551-26-94 06:34:00 Test Item Value Reference Range Interpretation Comments eGFR (test code = eGFR) 41 [facility] HealthcareXnqdtaiOOXWWDFQPEUD0896-14-78 06:34:00 Test Item Value Reference Range Interpretation Comments Chloride Lvl (test code = Chloride Lvl) 103 95-109 [facility] HealthcareAhnzwlpWKZZLEMUZWAK1361-98-75 06:34:00 Test Item Value Reference Range Interpretation Comments Calcium Lvl (test code = Calcium Lvl) 8.5 8.5-10.5 [facility] HealthcareCchlvqyORCDCAAPKADE8229-79-41 06:34:00 Test Item Value Reference Range Interpretation Comments CO2 (test code = CO2) 32 24-32 [facility] HealthcareMakjphqSNBBVSQXNTCZ4187-29-87 06:34:00 Test Item Value Reference Range Interpretation Comments Glucose Lvl (test code = Glucose Lvl) 173 70-99 [facility] HealthcareFgchsffOAFXDFJIDCLF8532-33-76 06:34:00 Test Item Value Reference Range Interpretation Comments BUN (test code = BUN) 37 7-22 [facility] HealthcareEynzeorDESGQVECODIW9353-23-32 06:34:00 Test Item Value Reference Range Interpretation Comments Creatinine Lvl (test code = Creatinine 1.63 0.50-1.40 Lvl) [facility] HealthcareMeswqybFOXMCYHZDDGU1011-02-45 06:34:00 Test Item Value Reference Range Interpretation Comments Potassium Lvl (test code = Potassium 4.3 3.5-5.1 Lvl) [facility] HealthcareHwednltXQJFAJDPIQIK8742-91-50 06:34:00 Test Item Value Reference Range Interpretation Comments Sodium Lvl (test code = Sodium Lvl) 145 135-145 [facility] CenterCHEM CUNZN0555-07-98 16:21:00 Test Item Value Reference Range Interpretation Comments Ammonia (test code = Ammonia) 48.0 [facility]CdpkwunBWYOJVPBYD4472-42-13 14:56:00 Test Item Value Reference Range Interpretation Comments IVETTE Interp (test code Pattern appears = IVETTE Interp) Nucleolar. [facility] CenterYpnyyptGGLYDKXMXE3422-37-99 14:56:00 Test Item Value Reference Range Interpretation Comments IVETTE Titer (test code = 1:40 *ABN*(06/11/16 IVETTE Titer) 8:56 AM) [facility] CenterGxmyykjSRDWRIFQYF6023-43-68 14:56:00 Test Item Value Reference Range Interpretation Comments Hep Bs Ag (test code Negative *NA*(06/11/16 = Hep Bs Ag) 8:56 AM) [facility] SouthUreoxzeTYXRENAKAB7820-31-11 14:56:00 Test Item Value Reference Range Interpretation Comments Hep C Ab (test code = Negative *NA*(06/11/16 Hep C Ab) 8:56 AM) [facility] CenterTlldiikAORKAUGIAH9897-15-40 14:56:00 Test Item Value Reference Range Interpretation Comments Hep B Core IgM (test Negative *NA*(06/11/16 code = Hep B Core 8:56 AM) IgM) [facility] SouthYsutzglHCRYGPABIB7259-45-32 14:56:00 Test Item Value Reference Range Interpretation Comments Hep A IgM (test code Negative *NA*(06/11/16 = Hep A IgM) 8:56 AM) [facility] CenterSwdpcihMXWZOOBAQX2092-84-52 14:56:00 Test Item Value Reference Range Interpretation Comments HIV Ag/Ab 4th Gen Negative *NA*(06/11/16 (test code = HIV 8:56 AM) Ag/Ab 4th Gen) [facility] CenterYpxkcfzWXFZUTBQRG3478-41-64 14:56:00 Test Item Value Reference Range Interpretation Comments IVETTE (test code = IVETTE) Positive *ABN*(06/11/16 8:56 AM) [facility]2016-12-22 10:42:00 Test Item Value Reference Range Interpretation Comments Bili Total (test code = Bili Total) 0.1 0.2-1.3 [facility]2016-12-22 10:42:00 Test Item Value Reference Range Interpretation Comments Total Protein (test code = Total 5.2 6.4-8.4 Protein) [facility]2016-12-22 10:42:00 Test Item Value Reference Range Interpretation Comments Albumin Lvl (test code = Albumin Lvl) 1.6 3.5-5.0 [facility]2016-12-22 10:42:00 Test Item Value Reference Range Interpretation Comments B/C Ratio (test code = B/C Ratio) 20 6-25 [facility]2016-12-22 10:42:00 Test Item Value Reference Range Interpretation Comments Globulin (test code = Globulin) 3.6 2.7-4.2 [facility]2016-12-22 10:42:00 Test Item Value Reference Range Interpretation Comments A/G Ratio (test code = A/G Ratio) 0.4 0.7-1.6 [facility]2016-12-22 10:42:00 Test Item Value Reference Range Interpretation Comments Alk Phos (test code = Alk Phos) 74 39-136 [facility]2016-12-22 10:42:00 Test Item Value Reference Range Interpretation Comments ALT (test code = ALT) 14 See_Comment [Auto mated message] The system which ge nerated this result transmit rohit reference range : <=65. The reference range was not used to interpr et this result as reji l/abnormal. [facility]2016-12-22 10:42:00 Test Item Value Reference Range Interpretation Comments AST (test code = AST) 13 See_Comment [Auto mated message] The system which ge nerated this result transmit rohit reference range : <=37. The reference range was not used to interpr et this result as reji l/abnormal. [facility] CenterZomzsimBXCBYTMXSY9088-73-28 10:42:00 Test Item Value Reference Range Interpretation Comments INR (test code = INR) 1.06 0.85-1.17 [facility]ISRHHJVCZ9916[facility] 10:42:00 Test Item Value Reference Range Interpretation Comments PT (test code = PT) 14.0 s 12.0-14.7 [facility]HlpubwlYTYTTXGIKB3377-66-30 10:42:00 Test Item Value Reference Range Interpretation Comments PTT (test code = PTT) 36.4 s 22.9-35.8 [facility] BQNNWUBAV8475-97-41 10:42:00 Test Item Value Reference Range Interpretation Comments Hgb A1C (test code = Hgb A1C) 10.5 [facility] CenterCARAC PQZFLEC8472-66-28 02:08:00 Test Item Value Reference Range Interpretation Comments CK MB Index (test 1.8 See_Comment [Automate d message] The code = CK MB Index) system w [facility] generated this result transmit rohit reference range : <=2.5. The reference range was not used to interpr et this result as reji l/abnormal. [facility] EKMWQHC3248-40-19 02:08:00 Test Item Value Reference Range Interpretation Comments CK MB (test code = CK MB) 2.9 0.5-3.6 [facility] PEMWVAG1662-97-90 02:08:00 Test Item Value Reference Range Interpretation Comments Troponin-T (test code 0.061 See_Comment [Auto mated message] The = Troponin-T) system which g enerated this result transmit rohit reference range : <=0.100. The reference r leo was not used to interpr et this result as reji l/abnormal. [facility] [id number] 02:08:00 Test Item Value Reference Range Interpretation Comments Total CK (test code = Total CK) 159 12-191 [facility] GXAFJUK9767-87-39 02:08:00 Test Item Value Reference Range Interpretation Comments Troponin-I (test code no gt See_Comment [Auto mated message] The = Troponin-I) system which g enerated this result transmit rohit reference range : <=0.40. The reference r leo was not used to interpr et this result as reji l/abnormal. [place] [id number] 02:08:00 Test Item Value Reference Range Interpretation Comments Bili Total (test code = Bili Total) 0.2 0.2-1.[address]12-22 02:08:00 Test Item Value Reference Range Interpretation Comments Bili Direct (test code 0.1 See_Comment [Aut omated message] The = Bili Direct) system which generated this result tra nsmitted reference range : <=0.3. The reference r leo was not used to int erpret this result as reji l/abnormal. [place] 413936-12-22 02:08:00 Test Item Value Reference Range Interpretation Comments Bili Indirect (test 0.1 See_Comment [Automa rohit message] The code = Bili Indirect) system which generated this result tra nsmitted reference range : <=1.0. The reference r leo was not used to int erpret this result as normal/abnormal . [place] 413936-12-22 02:08:00 Test Item Value Reference Range Interpretation Comments Total Protein (test code = Total 5.7 6.4-8.4 Protein) [place] 413936-12-22 02:08:00 Test Item Value Reference Range Interpretation Comments A/G Ratio (test code = A/G Ratio) 0.5 0.7-1.6 [place] [address]-12-22 02:08:00 Test Item Value Reference Range Interpretation Comments Albumin Lvl (test code = Albumin Lvl) 1.8 3.5-5.0 [place] 413936-12-22 02:08:00 Test Item Value Reference Range Interpretation Comments Globulin (test code = Globulin) 3.9 2.7-4.2 [place] 413936-12-22 02:08:00 Test Item Value Reference Range Interpretation Comments Alk Phos (test code = Alk Phos) 99 39-136 [place] 413936-12-22 02:08:00 Test Item Value Reference Range Interpretation Comments AST (test code = AST) 21 See_Comment [Auto mated message] The system which ge nerated this result transmit rohit reference range : <=37. The reference range was not used to interpr et this result as reji l/abnormal. [facility] AkvolutionannCHEM [id number] 02:08:00 Test Item Value Reference Range Interpretation Comments ALT (test code = ALT) 17 See_Comment [Auto mated message] The system which ge nerated this result transmit rohit reference range : <=65. The reference range was not used to interpr et this result as reji l/abnormal. [facility] [id number] 02:08:00 Test Item Value Reference Range Interpretation Comments UDS Note (test code = See Note *NA*(06/10/16 UDS Note) 8:08 PM) [facility] [id number] 02:08:00 Test Item Value Reference Range Interpretation Comments U Propoxyph Scr (test Negative *NA*(06/10/16 code = U Propoxyph Scr) 8:08 PM) [facility] RLXPOJ7230-06-96 02:08:00 Test Item Value Reference Range Interpretation Comments U Opiate Scr (test Negative *NA*(06/10/16 code = U Opiate Scr) 8:08 PM) [facility] [id number] 02:08:00 Test Item Value Reference Range Interpretation Comments U Methadone Scr (test Negative *NA*(06/10/16 code = U Methadone Scr) 8:08 PM) [facility] [id number] 02:08:00 Test Item Value Reference Range Interpretation Comments U Phencyc Scr (test Negative *NA*(06/10/16 code = U Phencyc Scr) 8:08 PM) [facility] [id number] 02:08:00 Test Item Value Reference Range Interpretation Comments U Cannab Scr (test Negative *NA*(06/10/16 code = U Cannab Scr) 8:08 PM) [facility] [id number] 02:08:00 Test Item Value Reference Range Interpretation Comments U Amph Scr (test code Negative *NA*(06/10/16 = U Amph Scr) 8:08 PM) [facility] [id number] 02:08:00 Test Item Value Reference Range Interpretation Comments U Kelly Scr (test code Negative *NA*(06/10/16 = U Kelly Scr) 8:08 PM) [facility] [id number] 02:08:00 Test Item Value Reference Range Interpretation Comments U Benzodia Scr (test Negative *NA*(06/10/16 code = U Benzodia Scr) 8:08 PM) [facility]DR[facility] [id number] 02:08:00 Test Item Value Reference Range Interpretation Comments U Cocaine Scr (test Negative *NA*(06/10/16 code = U Cocaine Scr) 8:08 PM) [facility] XxmfgniRXWDTR6134-50-39 02:08:00 Test Item Value Reference Range Interpretation Comments LDL (Calculated) (test code = LDL 75 (Calculated)) [facility] ZbzuwyxQBMNCM6904-67-70 02:08:00 Test Item Value Reference Range Interpretation Comments VLDL (test code = VLDL) 27 [facility] RnwgqnrUMJHIM1291-63-31 02:08:00 Test Item Value Reference Range Interpretation Comments Chol (test code = Chol) 133 [facility] OzlvtdoWQRCDP1452-84-15 02:08:00 Test Item Value Reference Range Interpretation Comments Trig (test code = Trig) 133 [facility] HhuwjhpCODAGJ7197-09-75 02:08:00 Test Item Value Reference Range Interpretation Comments CHD Risk (test code = CHD Risk) 4.29 3.90-5.80 [facility] WqjsbxbUMZJAS9148-12-61 02:08:00 Test Item Value Reference Range Interpretation Comments HDL (test code = HDL) 31 [facility] [id number] 02:08:00 Test Item Value Reference Range Interpretation Comments UA Urobilinogen (test code = UA <=1.0 mg/dL 0.1-1.0 Urobilinogen) [facility] CenterannURINE AND DMQHJ9779-29-00 02:08:00 Test Item Value Reference Range Interpretation Comments UA Ketones (test code = UA Negative mg/dL Ketones) [facility] [id number] 02:08:00 Test Item Value Reference Range Interpretation Comments UA Glucose (test code = UA Glucose) 300 mg/dL [facility] [id number] 02:08:00 Test Item Value Reference Range Interpretation Comments UA Protein (test code = UA >=300 mg/dL Protein) [facility] [id number] 02:08:00 Test Item Value Reference Range Interpretation Comments UA pH (test code = UA pH) 6.0 5.0-8.0 [facility] AND [id number] 02:08:00 Test Item Value Reference Range Interpretation Comments UA Nitrite (test code Negative (06/10/16 8:08 = UA Nitrite) PM) [facility] AND [id number] 02:08:00 Test Item Value Reference Range Interpretation Comments UA Blood (test code = Trace *ABN*(06/10/16 UA Blood) 8:08 PM) [facility] AND [id number] 02:08:00 Test Item Value Reference Range Interpretation Comments UA Bili (test code = Negative *NA*(06/10/16 UA Bili) 8:08 PM) [facility] AND [id number] 02:08:00 Test Item Value Reference Range Interpretation Comments UA Mucus (test code = UA Mucus) Few /LPF [facility] AND [id number] 02:08:00 Test Item Value Reference Range Interpretation Comments UA RBC (test code = 4 See_Comment [Automa rohit message] The UA RBC) system which ge nerated this result transmit rohit reference range : <=2. The reference range was not used to interpr et this result as reji l/abnormal. [facility] AND [id number] 02:08:00 Test Item Value Reference Range Interpretation Comments UA Sq Epi (test code = UA Sq Epi) Few /LPF [facility] AND [id number] 02:08:00 Test Item Value Reference Range Interpretation Comments UA WBC (test code = 5 See_Comment [Automa rohit message] The UA WBC) system which ge nerated this result transmit rohit reference range : <=5. The reference range was not used to interpr et this result as reji l/abnormal. [facility] AND [id number] 02:08:00 Test Item Value Reference Range Interpretation Comments UA Leuk Est (test code Small *ABN*(06/10/16 = UA Leuk Est) 8:08 PM) [facility] AND [id number] 02:08:00 Test Item Value Reference Range Interpretation Comments UA Hyal Cast (test 1 See_Comment [Automat ed message] The code = UA Hyal Cast) system which generated this result transmit rohit reference range : <=2. The reference range was not used to interpr et this result as reji l/abnormal. [facility] [id number] 02:08:00 Test Item Value Reference Range Interpretation Comments UA Spec Grav (test code = UA Spec Grav) 1.009 [facility] AND [id number] 02:08:00 Test Item Value Reference Range Interpretation Comments UA Color (test code = Yellow *NA*(06/10/16 UA Color) 8:08 PM) [facility] AND [id number] 02:08:00 Test Item Value Reference Range Interpretation Comments UA Turbidity (test code = Clear (06/10/16 8:08 UA Turbidity) PM) [facility] [id number] 02:08:00 Test Item Value Reference Range Interpretation Comments U Preg (test code = U Negative (06/10/16 8:08 Preg) PM) [facility] [id number] 02:08:00 Test Item Value Reference Range Interpretation Comments U Protein (test code = U Protein) 375.4 [facility] [id number] 02:08:00 Test Item Value Reference Range Interpretation Comments U Prot/Creat (test code = U Prot/Creat) 5.4 [facility] [id number] 02:08:00 Test Item Value Reference Range Interpretation Comments U Creatinine (test code = U Creatinine) 69.80 [facility] [id number] 16:53:00 Test Item Value Reference Range Interpretation Comments BNP (test code = BNP) 1135 [facility] [id number] 16:53:00 Test Item Value Reference Range Interpretation Comments Troponin-I (test code no gt See_Comment [Auto mated message] The = Troponin-I) system which g enerated this result transmit rohit reference range : <=0.40. The reference r leo was not used to interpr et this result as reji l/abnormal. [facility] CenterCHEM [id number] 13:02:00 Test Item Value Reference Range Interpretation Comments Lactic Acid WB (test code = Lactic Acid 0.9 0.5-2.2 WB) [facility] [id number] 12:29:44 Test Item Value Reference Range Interpretation Comments Valproic Acid Lvl (test code = Valproic 10 50-100 Acid Lvl) [facility]JeczlhbQLWBEGVBHBQND0192-73-02 11:21:27 Test Item Value Reference Range Interpretation Comments hCG Tot (test code = hCG Tot) 1 [facility]2015-01-06 11:21:00 Test Item Value Reference Range Interpretation Comments Albumin Lvl (test code = Albumin Lvl) 3.2 3.5-5.0 [facility]2015-01-06 11:21:00 Test Item Value Reference Range Interpretation Comments Total Protein (test code = Total 6.6 6.4-8.4 Protein) [facility]2015-01-06 11:21:00 Test Item Value Reference Range Interpretation Comments Bili Total (test code = Bili Total) 0.6 0.2-1.3 [facility]2015-01-06 11:21:00 Test Item Value Reference Range Interpretation Comments Alk Phos (test code = Alk Phos) 59 39-136 [facility]2015-01-06 11:21:00 Test Item Value Reference Range Interpretation Comments AST (test code = AST) 11 See_Comment [Auto mated message] The system which ge nerated this result transmit rohit reference range : <=37. The reference range was not used to interpr et this result as reji l/abnormal. [facility]2015-01-06 11:21:00 Test Item Value Reference Range Interpretation Comments ALT (test code = ALT) 17 See_Comment [Auto mated message] The system which ge nerated this result transmit rohit reference range : <=65. The reference range was not used to interpr et this result as reji l/abnormal. [facility]2015-01-06 11:21:00 Test Item Value Reference Range Interpretation Comments eGFR (test code = eGFR) 99 [facility]2015-01-06 11:21:00 Test Item Value Reference Range Interpretation Comments Glucose Lvl (test code = Glucose Lvl) 314 70-99 [facility]2015-01-06 11:21:00 Test Item Value Reference Range Interpretation Comments Potassium Lvl (test code = Potassium 3.4 3.5-5.1 Lvl) [facility]2015-01-06 11:21:00 Test Item Value Reference Range Interpretation Comments BUN (test code = BUN) 11 7-22 [facility]2015-01-06 11:21:00 Test Item Value Reference Range Interpretation Comments Creatinine Lvl (test code = Creatinine 0.8 0.5-1.4 Lvl) [facility]2015-01-06 11:21:00 Test Item Value Reference Range Interpretation Comments Sodium Lvl (test code = Sodium Lvl) 134 135-145 [facility]2015-01-06 11:21:00 Test Item Value Reference Range Interpretation Comments Chloride Lvl (test code = Chloride Lvl) 94 95-109 [facility]2015-01-06 11:21:00 Test Item Value Reference Range Interpretation Comments Calcium Lvl (test code = Calcium Lvl) 9.1 8.5-10.5 [facility]2015-01-06 11:21:00 Test Item Value Reference Range Interpretation Comments CO2 (test code = CO2) 24 24-32 [facility]2015-01-06 11:21:00 Test Item Value Reference Range Interpretation Comments A/G Ratio (test code = A/G Ratio) 0.9 0.7-1.6 [facility]2015-01-06 11:21:00 Test Item Value Reference Range Interpretation Comments Globulin (test code = Globulin) 3.4 2.0-4.0 [facility]2015-01-06 11:21:00 Test Item Value Reference Range Interpretation Comments B/C Ratio (test code = B/C Ratio) 14 6-25 [facility]2015-01-06 11:21:00 Test Item Value Reference Range Interpretation Comments AGAP (test code = AGAP) 19.4 10.0-20.0 [facility]2015-01-06 11:21:00 Test Item Value Reference Range Interpretation Comments Lipase Lvl (test code = Lipase Lvl) 81 73-393 [facility] WestCyrwvraNMUFPFKDJU6344-56-85 11:21:00 Test Item Value Reference Range Interpretation Comments Large Plt (test code = Large Plt) Slight [facility] [id number] 11:21:00 Test Item Value Reference Range Interpretation Comments Basophils # (test code 0.0 See_Comment [Aut omated message] The = Basophils #) system which generated this result tra nsmitted reference range : <=0.2. The reference r leo was not used to int erpret this result as normal/abnormal . [facility] WestLskqhurUWAFPTPVEF1054-65-67 11:21:00 Test Item Value Reference Range Interpretation Comments Anisocyte (test code = 1+ *ABN*(06/26/14 5:21 Anisocyte) AM) [facility] WestPaqpogfDPWEJINHHF7891-14-52 11:21:00 Test Item Value Reference Range Interpretation Comments Monocytes # (test code 0.6 See_Comment [Aut omated message] The = Monocytes #) system which generated this result tra nsmitted reference range : <=0.8. The reference r leo was not used to int erpret this result as normal/abnormal . [facility] WestNrgtleuIEJMONMIQI3660-49-89 11:21:00 Test Item Value Reference Range Interpretation Comments Eosinophils # (test code 0.1 See_Comment [A utomated message] The = Eosinophils #) system whic h generated this result tra nsmitted reference range : <=0.5. The reference r leo was not used to int erpret this result as normal/abnormal . [facility] WestWkvkechOCBWERFRNL2054-73-00 11:21:00 Test Item Value Reference Range Interpretation Comments Lymphocytes # (test code = Lymphocytes 2.5 1.0-5.5 #) [facility] WestJsgzvryMDLGEFGAQR2340-15-50 11:21:00 Test Item Value Reference Range Interpretation Comments Segs (test code = Segs) 63.3 45.0-75.0 [facility] WestZsmddlqFIEIXTGWPC0809-63-04 11:21:00 Test Item Value Reference Range Interpretation Comments Segs-Bands # (test code = Segs-Bands #) 5.6 1.5-8.1 [facility] WestSpmnvqoXOCZHLNXCO2571-91-55 11:21:00 Test Item Value Reference Range Interpretation Comments Basophils (test code = 0.0 See_Comment [Aut omated message] The Basophils) system which ge nerated this result tra nsmitted reference range : <=1.0. The reference r leo was not used to int erpret this result as normal/abnormal . [facility] WestEbtfxvyZVLRPONJGN5789-35-43 11:21:00 Test Item Value Reference Range Interpretation Comments Eosinophils (test code = 0.9 See_Comment [A utomated message] The Eosinophils) system which ge nerated this result tra nsmitted reference range : <=4.0. The reference r leo was not used to int erpret this result as normal/abnormal . [facility] WestVojpxziOBYRJGUCXO7506-26-99 11:21:00 Test Item Value Reference Range Interpretation Comments Monocytes (test code = Monocytes) 7.0 2.0-12.0 [facility] WestDxhxtjxAHSOZVRLXJ1343-28-66 11:21:00 Test Item Value Reference Range Interpretation Comments Lymphocytes (test code = Lymphocytes) 28.8 20.0-40.0 [facility] WestGsehragDCUSIIJKST4462-35-20 11:21:00 Test Item Value Reference Range Interpretation Comments WBC (test code = WBC) 8.8 3.7-10.4 [facility] WestGldyecqSKISBYMWWF3040-88-27 11:21:00 Test Item Value Reference Range Interpretation Comments RBC (test code = RBC) 5.19 4.20-5.40 [facility] WestGjtrjqkGMULTQOIVQ0251-97-87 11:21:00 Test Item Value Reference Range Interpretation Comments Hgb (test code = Hgb) 14.4 12.0-16.0 [facility] WestZutezorRTLHJOYZQT8500-10-76 11:21:00 Test Item Value Reference Range Interpretation Comments Hct (test code = Hct) 43.1 36.0-48.0 [facility] WestBbeprelTMVDONKXPG7777-84-79 11:21:00 Test Item Value Reference Range Interpretation Comments MCV (test code = MCV) 83.1 80.0-98.0 [facility] WestLtingnrCRILPCYVUD0752-78-48 11:21:00 Test Item Value Reference Range Interpretation Comments MCH (test code = MCH) 27.8 pg 27.0-31.0 [facility] WestPgvqgfgVBUVBFOVTO4217-24-62 11:21:00 Test Item Value Reference Range Interpretation Comments RDW (test code = RDW) 13.1 11.5-14.5 [facility] WestWjzpqnbAAMMVLAUYX3145-96-49 11:21:00 Test Item Value Reference Range Interpretation Comments MCHC (test code = MCHC) 33.5 32.0-36.0 [facility] WestOzvsjqaWHRMZWJGBQ9955-67-72 11:21:00 Test Item Value Reference Range Interpretation Comments Platelet (test code = Platelet) 201 133-450 [facility] WestRbyeuxcLCIKIJKJWC6568-34-15 11:21:00 Test Item Value Reference Range Interpretation Comments MPV (test code = MPV) 10.4 7.4-10.4 [facility] HospitalXjetqhhKANCVRLLZU5374-26-22 04:48:55 Test Item Value Reference Range Interpretation Comments UA [place] Yeast (test code = UA Occasional /HPF A [place] Yeast) [facility] HospitalXkigousYOFXXSICLY2002-32-28 04:48:55 Test Item Value Reference Range Interpretation Comments UA Mucus (test code = UA Mucus) Few /LPF N [facility] HospitalAhuapywIPVYJQCZVZ1313-58-40 04:48:55 Test Item Value Reference Range Interpretation Comments UA Sq Epi (test code = UA Sq Moderate /LPF A Epi) [facility] HospitalEsdsrsrKQPJAFDELQ3500-75-70 04:48:55 Test Item Value Reference Range Interpretation Comments Micro? (test code = Performed (04/14/2013 N Micro?) 23:48:55) [facility] HospitalModidzqTVBATYQJOU7238-40-12 04:48:55 Test Item Value Reference Range Interpretation Comments UA WBC (test code = UA WBC) 0-2 /HPF N [facility] HospitalIqjkemhWPPSDEKRTE4807-80-29 04:48:55 Test Item Value Reference Range Interpretation Comments UA Bacteria (test code = UA Occasional /HPF N Bacteria) [facility] HospitalAjydygzWONTCVVRHH6632-55-02 04:48:55 Test Item Value Reference Range Interpretation Comments UA Glucose (test code = UA Glucose) 500 mg/dL A [facility] HospitalSkdgkqyRANDAGFECF0402-73-64 04:48:55 Test Item Value Reference Range Interpretation Comments UA Bili (test code = Negative *NA*(04/14/2013 UA Bili) 23:48:55) [facility] HospitalNbljoazNLDICDEGUU4524-53-68 04:48:55 Test Item Value Reference Range Interpretation Comments UA Ketones (test code = Trace A UA Ketones) *ABN*(04/14/2013 23:48:55) [facility] HospitalOlurobbJNHHGICNHD8776-05-40 04:48:55 Test Item Value Reference Range Interpretation Comments UA Blood (test code = Negative (04/14/2013 N UA Blood) 23:48:55) [facility] HospitalRcscsnaMDVIPDZIGH1894-82-05 04:48:55 Test Item Value Reference Range Interpretation Comments UA Urobilinogen (test code = UA 0.2 0.1-1.0 N Urobilinogen) [facility] HospitalOpmzcchCGFPJSROFZ1936-35-13 04:48:55 Test Item Value Reference Range Interpretation Comments UA Nitrite (test code Negative (04/14/2013 N = UA Nitrite) 23:48:55) [facility] HospitalLdhrmsuVSADMWNMXH7052-75-45 04:48:55 Test Item Value Reference Range Interpretation Comments UA Leuk Est (test Negative (04/14/2013 N code = UA Leuk Est) 23:48:55) [facility] HospitalXpyvaueZIURKKAPPA0862-55-15 04:48:55 Test Item Value Reference Range Interpretation Comments UA Turbidity (test code = Clear (04/14/2013 N UA Turbidity) 23:48:55) [facility] HospitalMrrthwnFPBBUFCYFO9155-57-15 04:48:55 Test Item Value Reference Range Interpretation Comments UA Color (test code = Yellow *NA*(04/14/2013 UA Color) 23:48:55) [facility] HospitalWshnzdsOAOKPPJVZS8039-65-03 04:48:55 Test Item Value Reference Range Interpretation Comments UA pH (test code = UA pH) 7.0 1 5.0-8.0 N [facility] HospitalPzerrwuHVYFXXRMKE6416-92-45 04:48:55 Test Item Value Reference Range Interpretation Comments UA Spec Grav (test code = UA Spec 1.025 1 N Grav) [facility] HospitalKpmtgxxTPTEXETPVX3768-48-50 04:48:55 Test Item Value Reference Range Interpretation Comments UA Protein (test code = Trace A UA Protein) *ABN*(04/14/2013 23:48:55) [facility] HospitalYtecovrPAVOKJMIL2492-97-25 04:28:00 Test Item Value Reference Range Interpretation Comments S Preg (test code = S Negative *NA*(04/14/2013 Preg) 23:28:00) [facility] HospitalPyrkubuGKUHISLQA1580-79-63 04:28:00 Test Item Value Reference Range Interpretation Comments Lipase Lvl (test code = Lipase Lvl) 233 73-393 N [facility] HospitalEhuotncQSSTLFXFH4084-72-41 04:28:00 Test Item Value Reference Range Interpretation Comments Globulin (test code = Globulin) 4.1 2.0-4.0 H [facility] HospitalNestusrMEQBMTWRN0714-06-29 04:28:00 Test Item Value Reference Range Interpretation Comments AGAP (test code = AGAP) 10.5 10.0-20.0 N [facility] HospitalDmkqqasEHHGPPUZX6513-33-73 04:28:00 Test Item Value Reference Range Interpretation Comments B/C Ratio (test code = B/C Ratio) 6 6-25 N [facility] HospitalBdcylabBKGLGUIWS3013-14-02 04:28:00 Test Item Value Reference Range Interpretation Comments A/G Ratio (test code = A/G Ratio) 0.7 0.7-1.6 N [facility] HospitalUjrzylpYTSRXILEJ6223-94-43 04:28:00 Test Item Value Reference Range Interpretation Comments eGFR (test code = eGFR) 130 [facility] HospitalDsppycgMWTRFFTBG7311-07-76 04:28:00 Test Item Value Reference Range Interpretation Comments Albumin Lvl (test code = Albumin Lvl) 2.9 3.5-5.0 L [facility] HospitalMzuvhaoXZHMTLFHF2167-43-22 04:28:00 Test Item Value Reference Range Interpretation Comments ASPARTATE TRANSAMINASE 20 See_Comment N [Aut omated message] (test code = ASPARTATE The s ystem which TRANSAMINASE) generated this result transmitted ref erence range: <=37. Th e reference range was not used to interpr et this result as normal/abnormal . [facility] HospitalJezmlwbDTPSBOWEM3755-68-35 04:28:00 Test Item Value Reference Range Interpretation Comments Bili Total (test code = Bili Total) 0.5 0.2-1.3 N [facility] HospitalCncteyqYXHBOZGPR1401-81-91 04:28:00 Test Item Value Reference Range Interpretation Comments Alk Phos (test code = Alk Phos) 89 39-136 N [facility] HospitalOysmcztJZFMJPQIR1519-98-48 04:28:00 Test Item Value Reference Range Interpretation Comments ALANINE AMINOTRANSFERASE 11 See_Comment N [A utomated message] (test code = ALANINE The sys tem which AMINOTRANSFERASE) generated this result transmitted ref erence range: <=65. Th e reference range was not used to int erpret this result as normal/abnormal . [facility] HospitalPbddnmtQYSEMRFEG2082-66-13 04:28:00 Test Item Value Reference Range Interpretation Comments Creatinine Lvl (test code = Creatinine 0.5 0.5-1.4 N Lvl) [facility] HospitalWjcyxnlYYFCKGEAH2141-98-72 04:28:00 Test Item Value Reference Range Interpretation Comments BUN (test code = BUN) 3 7-22 L [facility] HospitalUltgkksXEYIMROSP1962-45-80 04:28:00 Test Item Value Reference Range Interpretation Comments Glucose Lvl (test code = Glucose Lvl) 255 70-99 H [facility] HospitalYiemtcxDWQCTSRRW4571-36-79 04:28:00 Test Item Value Reference Range Interpretation Comments Total Protein (test code = Total 7.0 6.4-8.4 N Protein) [facility] HospitalBzmxvepCMIZBIYXT0592-36-31 04:28:00 Test Item Value Reference Range Interpretation Comments Calcium Lvl (test code = Calcium Lvl) 8.7 8.5-10.5 N [facility] HospitalYiwgucdYRSHABTFE9772-95-32 04:28:00 Test Item Value Reference Range Interpretation Comments CO2 (test code = CO2) 29 24-32 N [facility] HospitalYlzmhezALKSIDKIE9176-09-08 04:28:00 Test Item Value Reference Range Interpretation Comments Chloride Lvl (test code = Chloride Lvl) 104 95-109 N [facility] HospitalClxmgnuEWIKWXSUY6206-76-69 04:28:00 Test Item Value Reference Range Interpretation Comments Potassium Lvl (test code = Potassium 3.5 3.5-5.1 N Lvl) [facility] HospitalDuqkqboYWFUSUARG1832-79-56 04:28:00 Test Item Value Reference Range Interpretation Comments Sodium Lvl (test code = Sodium Lvl) 140 135-145 N [facility] WestWhhqepdSYTNFMJSQC2415-89-46 04:28:00 Test Item Value Reference Range Interpretation Comments PROTIME (test code = PROTIME) 12.1 s 12.0-14.7 N [facility] WestSgxscgqAXAZQEJRXW6973-93-55 04:28:00 Test Item Value Reference Range Interpretation Comments aPTT (test code = aPTT) 39.0 s 22.9-35.8 H [facility] WestBxvkxqjGUGHKLSOVI6413-49-50 04:28:00 Test Item Value Reference Range Interpretation Comments INR (test code = INR) 0.90 0.85-1.17 N [facility] WestGbmyqzhOBVQUISTTI5948-59-21 04:28:00 Test Item Value Reference Range Interpretation Comments MCH (test code = MCH) 29.4 pg 27.0-31.0 N [facility] WestYtwwfzlRXYETKFUNN4465-63-94 04:28:00 Test Item Value Reference Range Interpretation Comments MCV (test code = MCV) 86.1 81.0-99.0 N [facility] WestRxvzpcxFSBUBRAVYL8835-11-59 04:28:00 Test Item Value Reference Range Interpretation Comments Hct (test code = Hct) 29.4 36.0-48.0 L [facility] WestBzcvtnpJJUIXPSUMR8371-74-71 04:28:00 Test Item Value Reference Range Interpretation Comments RDW (test code = RDW) 14.0 11.5-14.5 N [facility] WestKfukqdxRXCTUEXXCT9762-43-70 04:28:00 Test Item Value Reference Range Interpretation Comments WBC X 10x3 (test code = WBC X 10x3) 6.2 3.7-10.4 N [facility] WestCgmoqhfORENGVBRDW0542-84-59 04:28:00 Test Item Value Reference Range Interpretation Comments Platelet (test code = Platelet) 178 133-450 N [facility] WestPxnzkkcHGYHPMXQSO0274-21-44 04:28:00 Test Item Value Reference Range Interpretation Comments MCHC (test code = MCHC) 34.1 32.0-36.0 N [facility] WestTcxxwrkHMNAJDZIRW3016-77-06 04:28:00 Test Item Value Reference Range Interpretation Comments RBC X 10x6 (test code = RBC X 10x6) 3.41 4.20-5.40 L [facility] WestQfxdcudGXTMNVMYSW0529-29-75 04:28:00 Test Item Value Reference Range Interpretation Comments Hgb (test code = Hgb) 10.0 12.0-16.0 L [facility] WestKvnefylLJTKRHXJRL7295-20-70 04:28:00 Test Item Value Reference Range Interpretation Comments MPV (test code = MPV) 10.1 7.4-10.4 N [facility] WestDiosfnhHWDQRRDLOM3871-35-91 04:28:00 Test Item Value Reference Range Interpretation Comments Segs-Bands # (test code = Segs-Bands #) 4.4 1.5-8.1 N [facility] WestZojjcevVASXRZRKNR4248-17-36 04:28:00 Test Item Value Reference Range Interpretation Comments Basophils (test code = 0.7 See_Comment N [Aut omated message] The Basophils) system which ge nerated this result tra nsmitted reference range : <=1.0. The reference r leo was not used to int erpret this result as normal/abnormal . [facility] WestXkroqpmHRTSICVENL8270-38-52 04:28:00 Test Item Value Reference Range Interpretation Comments Segs (test code = Segs) 70.7 45.0-75.0 N [facility] WestOjeqwyzPXRYXTOOZN5223-97-84 04:28:00 Test Item Value Reference Range Interpretation Comments Monocytes # (test code 0.3 See_Comment N [Aut omated message] The = Monocytes #) system which generated this result tra nsmitted reference range : <=0.8. The reference r leo was not used to int erpret this result as normal/abnormal . [facility] WestUgxeepdUUWNWBMFUW2775-48-44 04:28:00 Test Item Value Reference Range Interpretation Comments Lymphocytes # (test code = Lymphocytes 1.2 1.0-5.5 N #) [facility] [facility]vcvkblCQONSPAAHP7827-79-68 04:28:00 Test Item Value Reference Range Interpretation Comments Monocytes (test code = Monocytes) 4.5 2.0-12.0 N [facility] WestKujttnnDTTWXDKMSB3930-26-26 04:28:00 Test Item Value Reference Range Interpretation Comments Eosinophils (test code = 4.1 See_Comment H [A utomated message] The Eosinophils) system which ge nerated this result tra nsmitted reference range : <=4.0. The reference r leo was not used to int erpret this result as normal/abnormal . [facility] WestUqcisimKLHUQUEQYN3649-53-62 04:28:00 Test Item Value Reference Range Interpretation Comments Lymphocytes (test code = Lymphocytes) 20.0 20.0-40.0 N [facility] WestSxapqisQTYMZPXDBH4683-71-10 04:28:00 Test Item Value Reference Range Interpretation Comments Basophils # (test code 0.0 See_Comment N [Aut omated message] The = Basophils #) system which generated this result tra nsmitted reference range : <=0.2. The reference r leo was not used to int erpret this result as normal/abnormal . [facility] WestUjxawxwCUWYRLIIOC4996-77-62 04:28:00 Test Item Value Reference Range Interpretation Comments Eosinophils # (test code 0.3 See_Comment N [A utomated message] The = Eosinophils #) system whic h generated this result tra nsmitted reference range : <=0.5. The reference r leo was not used to int erpret this result as normal/abnormal . [facility] GLUCOSE IVVUECB2806-85-51 01:12:00 Test Item Value Reference Range Interpretation Comments Gluc POC Lifscn (test code = Gluc POC 260 70-99 H Lifscn) [facility] GLUCOSE HOOSDBT2400-02-42 01:12:00 Test Item Value Reference Range Interpretation Comments Comment1 (test code = Comment1) Riccoy RN/[facility]QsqpaowUPLHDGGJLX1050-93-86 23:40:00 Test Item Value Reference Range Interpretation Comments UA Protein (test code = Trace A UA Protein) *ABN*(03/14/2012 18:40:00) [facility]landsJxylehnLSPEUOFGEF0957-91-65 23:40:00 Test Item Value Reference Range Interpretation Comments UA pH (test code = UA pH) 6.0 1 5.0-8.0 N [facility]landsBhhdbprJKVDUKAQCC1992-99-98 23:40:00 Test Item Value Reference Range Interpretation Comments UA Ketones (test code = >=80 mg/dL UA Ketones) *NA*(03/14/2012 18:40:00) [facility] HospitalRcpgrdhFQMXJAQFYH2918-07-43 23:40:00 Test Item Value Reference Range Interpretation Comments UA Glucose (test code = >=1000 mg/dL A UA Glucose) *ABN*(03/14/2012 18:40:00) [facility] CenterRorvwxqQQOYUCYEPQ5063-58-34 23:40:00 Test Item Value Reference Range Interpretation Comments UA Blood (test code = Negative (03/14/2012 N UA Blood) 18:40:00) [facility] CenterWmymcnaWEQOTTKATW3989-50-54 23:40:00 Test Item Value Reference Range Interpretation Comments UA Nitrite (test code Negative (03/14/2012 N = UA Nitrite) 18:40:00) [facility]landsOmmdnqkGYYHNICVUE0889-35-97 23:40:00 Test Item Value Reference Range Interpretation Comments UA Urobilinogen (test code = UA 0.2 0.1-1.0 N Urobilinogen) [facility] CenterOhbmlgnYIARCPVUKX5360-95-84 23:40:00 Test Item Value Reference Range Interpretation Comments UA Leuk Est (test Negative (03/14/2012 N code = UA Leuk Est) 18:40:00) [facility] CenterVtwdugvIWWCXAFSVZ8959-62-14 23:40:00 Test Item Value Reference Range Interpretation Comments UA Bili (test code = Negative *NA*(03/14/2012 UA Bili) 18:40:00) [facility] CenterHkuqsriRCNXFVTGPI2718-07-26 23:40:00 Test Item Value Reference Range Interpretation Comments UA Turbidity (test code = Clear (03/14/2012 N UA Turbidity) 18:40:00) [facility] HospitalDgygndlWBCOFTSRQU1541-13-11 23:40:00 Test Item Value Reference Range Interpretation Comments UA Color (test code = Yellow *NA*(03/14/2012 UA Color) 18:40:00) [facility] HospitalIbwjwkjRRAVEGLJJJ0354-82-57 23:40:00 Test Item Value Reference Range Interpretation Comments UA Spec Grav (test >=1.030 A code = UA Spec Grav) *ABN*(03/14/2012 18:40:00) [facility] HospitalEsfldblFYINYLULBU3941-43-23 23:40:00 Test Item Value Reference Range Interpretation Comments UA Sq Epi (test code Occasional /LPF N = UA Sq Epi) (03/14/2012 18:40:00) [facility] HospitalQzmdeodKRDRFJCLKP6674-33-71 23:40:00 Test Item Value Reference Range Interpretation Comments UA WBC (test code = UA 3-5 /HPF (03/14/2012 N WBC) 18:40:00) [facility] HospitalIzneqeqDGNXYAYWLX3464-08-46 23:40:00 Test Item Value Reference Range Interpretation Comments UA Bacteria (test code Occasional /HPF N = UA Bacteria) (03/14/2012 18:40:00) [facility] HospitalZzrfvhfYFEIYMKJO5613-85-08 22:50:00 Test Item Value Reference Range Interpretation Comments S Preg (test code = S Negative *NA*(03/14/2012 Preg) 17:50:00) [facility] HospitalBoitlifSSKNHCVPG8923-23-49 22:50:00 Test Item Value Reference Range Interpretation Comments Lipase Lvl (test code = Lipase Lvl) 45 73-393 L [facility] HospitalSrufjrjTEUWDETXI1752-13-93 22:50:00 Test Item Value Reference Range Interpretation Comments A/G Ratio (test code = A/G Ratio) 1.2 0.7-1.6 N [facility] HospitalWzfdlykFMPQOERYD6227-76-62 22:50:00 Test Item Value Reference Range Interpretation Comments Globulin (test code = Globulin) 3.8 2.0-4.0 N [facility] HospitalUbtzqibBLNLBUOUN1485-45-47 22:50:00 Test Item Value Reference Range Interpretation Comments B/C Ratio (test code = B/C Ratio) 21 6-25 N [facility] HospitalKavphysLSUIBMCXK2817-46-67 22:50:00 Test Item Value Reference Range Interpretation Comments AGAP (test code = AGAP) 16.8 10.0-20.0 N [facility] HospitalGvdrecmDZKFPPRSL7607-87-49 22:50:00 Test Item Value Reference Range Interpretation Comments Bili Total (test code = Bili Total) 1.1 0.2-1.3 N [facility] HospitalJpgieyvKHZFRRVDM0335-85-89 22:50:00 Test Item Value Reference Range Interpretation Comments Total Protein (test code = Total 8.2 6.4-8.4 N Protein) [facility] HospitalVjsfhnaQKLKAJHHC0995-32-34 22:50:00 Test Item Value Reference Range Interpretation Comments Potassium Lvl (test code = Potassium 3.8 3.5-5.1 N Lvl) [facility] HospitalOfdjthyVKTLEBMUQ3293-26-34 22:50:00 Test Item Value Reference Range Interpretation Comments Creatinine Lvl (test code = Creatinine 0.7 0.5-1.4 N Lvl) [facility] HospitalDrpwtiwHNYZAMDXG0065-92-18 22:50:00 Test Item Value Reference Range Interpretation Comments Sodium Lvl (test code = Sodium Lvl) 139 135-145 N [facility] HospitalBpgqomzKFBBPWSCE5207-70-89 22:50:00 Test Item Value Reference Range Interpretation Comments Chloride Lvl (test code = Chloride Lvl) 99 95-109 N [facility] HospitalWrjnotpBOWOVXEDD8816-70-19 22:50:00 Test Item Value Reference Range Interpretation Comments CO2 (test code = CO2) 27 24-32 N [facility] HospitalKdfemjkDNUONRPOA9826-04-47 22:50:00 Test Item Value Reference Range Interpretation Comments Glucose Lvl (test code = Glucose Lvl) 301 70-99 H [facility] HospitalHzagyrzYGKNNDJLD7353-07-58 22:50:00 Test Item Value Reference Range Interpretation Comments BUN (test code = BUN) 15 7-22 N [facility] HospitalBfudzuxYDPOLTRHY8720-55-54 22:50:00 Test Item Value Reference Range Interpretation Comments ALT (test code = ALT) 24 See_Comment N [Auto mated message] The system which ge nerated this result transmit rohit reference range : <=65. The reference range was not used to interpr et this result as reji l/abnormal. [facility] HospitalFotlyosNWCJDVTRR7192-01-06 22:50:00 Test Item Value Reference Range Interpretation Comments AST (test code = AST) 20 See_Comment N [Auto mated message] The system which ge nerated this result transmit rohit reference range : <=37. The reference range was not used to interpr et this result as reji l/abnormal. [facility] HospitalCoherjlMLGFLGBQY5697-02-20 22:50:00 Test Item Value Reference Range Interpretation Comments Alk Phos (test code = Alk Phos) 67 39-136 N [facility] HospitalCsoryzjHQKVIHIET1694-54-55 22:50:00 Test Item Value Reference Range Interpretation Comments Albumin Lvl (test code = Albumin Lvl) 4.4 3.5-5.0 N [facility] HospitalUznftrcSIQZZBXCE4284-99-86 22:50:00 Test Item Value Reference Range Interpretation Comments Calcium Lvl (test code = Calcium Lvl) 9.9 8.5-10.5 N [facility] WestJlvppykQHWIBZYFCZ6556-86-84 22:50:00 Test Item Value Reference Range Interpretation Comments MPV (test code = MPV) 11.8 7.4-10.4 H [facility] WestZlqqtmmAMOHRLLWAE2297-36-43 22:50:00 Test Item Value Reference Range Interpretation Comments MCHC (test code = MCHC) 35.9 32.0-36.0 N [facility] WestFuxztoyLSLVUFWHJN0133-47-45 22:50:00 Test Item Value Reference Range Interpretation Comments MCH (test code = MCH) 31.2 pg 27.0-31.0 H [facility] WestHvdicvpGUBIICNAKF1933-02-61 22:50:00 Test Item Value Reference Range Interpretation Comments Platelet (test code = Platelet) 189 133-450 N [facility] WestCzetuqtBBHRNVZBDP9689-80-91 22:50:00 Test Item Value Reference Range Interpretation Comments RDW (test code = RDW) 13.1 11.5-14.5 N [facility] WestHnthfsuFMXKKAKFMP4471-69-56 22:50:00 Test Item Value Reference Range Interpretation Comments Hct (test code = Hct) 40.7 36.0-48.0 N [facility] WestHbsbrutZVUCPSLSQK7445-01-79 22:50:00 Test Item Value Reference Range Interpretation Comments Hgb (test code = Hgb) 14.6 12.0-16.0 N [facility] WestBobjzxySCFNYZUUGT9238-20-78 22:50:00 Test Item Value Reference Range Interpretation Comments MCV (test code = MCV) 87.0 81.0-99.0 N [facility] WestNbslxloYGITRSVECK9599-30-52 22:50:00 Test Item Value Reference Range Interpretation Comments WBC (test code = WBC) 11.7 3.7-10.4 H [facility] WestOoujsksZEOYVUSOUC3482-25-75 22:50:00 Test Item Value Reference Range Interpretation Comments RBC (test code = RBC) 4.68 4.20-5.40 N [facility] WestYjsewcjQJOVNCEKQI9210-28-75 22:50:00 Test Item Value Reference Range Interpretation Comments Basophils # (test code 0.0 See_Comment N [Aut omated message] The = Basophils #) system which generated this result tra nsmitted reference range : <=0.2. The reference r leo was not used to int erpret this result as normal/abnormal . [facility] WestGhemaceCLAXIQGQBK5041-19-41 22:50:00 Test Item Value Reference Range Interpretation Comments Basophils (test code = 0.2 See_Comment N [Aut omated message] The Basophils) system which ge nerated this result tra nsmitted reference range : <=1.0. The reference r leo was not used to int erpret this result as normal/abnormal . [facility] WestMaskrxhTFBNSSJTDZ4391-58-19 22:50:00 Test Item Value Reference Range Interpretation Comments Eosinophils # (test code 0.0 See_Comment N [A utomated message] The = Eosinophils #) system whic h generated this result tra nsmitted reference range : <=0.5. The reference r leo was not used to int erpret this result as normal/abnormal . [facility] WestLjyswhzLACFBLUSQV2993-28-77 22:50:00 Test Item Value Reference Range Interpretation Comments Monocytes # (test code 0.4 See_Comment N [Aut omated message] The = Monocytes #) system which generated this result tra nsmitted reference range : <=0.8. The reference r leo was not used to int erpret this result as normal/abnormal . [facility] WestBikpdwcKXSZUPKUKO5162-83-47 22:50:00 Test Item Value Reference Range Interpretation Comments Segs-Bands # (test code = Segs-Bands #) 10.6 1.5-8.1 H [facility] WestUtlnligSZLDOVTBMD1552-41-85 22:50:00 Test Item Value Reference Range Interpretation Comments Lymphocytes # (test code = Lymphocytes 0.7 1.0-5.5 L #) [facility] WestRnmvoecVGKYUHRYYZ9790-53-52 22:50:00 Test Item Value Reference Range Interpretation Comments Monocytes (test code = Monocytes) 3.4 2.0-12.0 N [facility] WestDnrrmucYBUBRFTLCJ3750-94-22 22:50:00 Test Item Value Reference Range Interpretation Comments Plt Morph (test code = Normal (03/14/2012 N Plt Morph) 17:50:00) [facility] WestEqxumfpVBDUEOMBCV5712-64-04 22:50:00 Test Item Value Reference Range Interpretation Comments Lymphocytes (test code = Lymphocytes) 6.0 20.0-40.0 L [facility] WestWotyawsJYRAZAPGCR1580-69-78 22:50:00 Test Item Value Reference Range Interpretation Comments Eosinophils (test code = 0.0 See_Comment N [A utomated message] The Eosinophils) system which ge nerated this result tra nsmitted reference range : <=4.0. The reference r leo was not used to int erpret this result as normal/abnormal . [facility] WestUilxonzELXUPKQDPB9384-86-38 22:50:00 Test Item Value Reference Range Interpretation Comments Segs (test code = Segs) 90.4 45.0-75.0 H [facility] WestRoyunzxXQGPJBYCNX0890-55-95 22:50:00 Test Item Value Reference Range Interpretation Comments RBC Morph (test code = Normal (03/14/2012 N RBC Morph) 17:50:00) [facility] GLUCOSE COCGNEQ8569-91-87 23:43:00 Test Item Value Reference Range Interpretation Comments Gluc POC Lifscn (test code = Gluc POC 167 70-99 H Lifscn) [facility] GLUCOSE KGQFYEE0681-60-31 23:43:00 Test Item Value Reference Range Interpretation Comments Comment1 (test code = Comment1) Notify RN/MD [facility] GLUCOSE KKOFAJG1681-50-90 23:43:00 Test Item Value Reference Range Interpretation Comments Comment2 (test code = Comment2) Sliding Scale [facility] GLUCOSE OJXWZVF2173-21-08 17:40:00 Test Item Value Reference Range Interpretation Comments Gluc POC Lifscn (test code = Gluc POC 189 70-99 H Lifscn) [facility] GLUCOSE UDGSZWU7222-42-47 17:40:00 Test Item Value Reference Range Interpretation Comments Comment1 (test code = Comment1) Notify RN/ [facility] GLUCOSE TCHQDMT5988-76-68 17:40:00 Test Item Value Reference Range Interpretation Comments Comment2 (test code = Comment2) Sliding Scale [facility] GLUCOSE FMUQAZP2971-99-68 13:34:00 Test Item Value Reference Range Interpretation Comments Comment2 (test code = Comment2) Sliding Scale [facility] GLUCOSE KXNWHEY3933-14-55 13:34:00 Test Item Value Reference Range Interpretation Comments Gluc POC Lifscn (test code = Gluc POC 110 70-99 H Lifscn) [facility] GLUCOSE ZYUGTGV3046-58-38 13:34:00 Test Item Value Reference Range Interpretation Comments Comment1 (test code = Comment1) [facility]/ [facility]EzbrttcKLEXZCUXK9799-18-98 00:00:00 Test Item Value Reference Range Interpretation Comments U Preg (test code = U Negative (11/28/2011 N Preg) 19:00:00) [facility] CenterCnzozwqPYZVOINZPA6579-30-92 00:00:00 Test Item Value Reference Range Interpretation Comments Micro? (test code = Performed (11/28/2011 N Micro?) 19:00:00) [facility] CenterGfdpzboRDJLUWAUTP7950-43-38 00:00:00 Test Item Value Reference Range Interpretation Comments UA Sq Epi (test code Occasional /LPF N = UA Sq Epi) (11/28/2011 19:00:00) [facility]landsZgqhhexDLFJBATRXY2498-19-55 00:00:00 Test Item Value Reference Range Interpretation Comments UA RBC (test None Seen See_Comment N [Automated mes pastor] code = UA RBC) (11/28/2011 The system wh ich 19:00:00) generated this result transmitted ref erence range: <=2. The reference range was not used to int erpret this result as normal/abnormal . [facility] CenterBemxzfvWUQCXXRUHC9054-83-40 00:00:00 Test Item Value Reference Range Interpretation Comments UA WBC (test code Occasional See_Comment [Automate d message] The = UA WBC) system which ge nerated this result tra nsmitted reference range : <=5. The reference range was not used to interpr et this result as normal/abnormal . [facility] HospitalUlvcvmeZRKMENLTBA6060-31-51 00:00:00 Test Item Value Reference Range Interpretation Comments UA Protein (test code Negative mg/dL N = UA Protein) (11/28/2011 19:00:00) [facility] HospitalPhmducwXPJXOAYKOI2447-73-85 00:00:00 Test Item Value Reference Range Interpretation Comments UA pH (test code = UA pH) 7.0 1 5.0-8.0 N [facility] HospitalZyphkpvBYTAIQFFUF4977-62-14 00:00:00 Test Item Value Reference Range Interpretation Comments UA Spec Grav (test code = UA Spec 1.020 1 N Grav) [facility] HospitalYocrshbAKXQFTMWEF0902-96-47 00:00:00 Test Item Value Reference Range Interpretation Comments UA Turbidity (test code = Clear (11/28/2011 N UA Turbidity) 19:00:00) [facility] HospitalYblglvuPQCZJEQGCK2516-38-50 00:00:00 Test Item Value Reference Range Interpretation Comments UA Color (test code = Yellow *NA*(11/28/2011 UA Color) 19:00:00) [facility] HospitalGprwdcnWPFYESAVFI5191-69-93 00:00:00 Test Item Value Reference Range Interpretation Comments UA Urobilinogen (test code = UA 0.2 0.1-1.0 N Urobilinogen) [facility] HospitalApuguwwFCNZEGTSKW2962-37-87 00:00:00 Test Item Value Reference Range Interpretation Comments UA Blood (test code = Negative (11/28/2011 N UA Blood) 19:00:00) [facility] HospitalNdxmvkaAZMJOWBIPW8834-53-18 00:00:00 Test Item Value Reference Range Interpretation Comments UA Bili (test code = Negative *NA*(11/28/2011 UA Bili) 19:00:00) [facility] HospitalOauleklYLRUIMVEPY2786-72-85 00:00:00 Test Item Value Reference Range Interpretation Comments UA Ketones (test code = >=80 mg/dL A UA Ketones) *ABN*(11/28/2011 19:00:00) [facility] HospitalJjiddznKSDAXIAMNA0361-20-72 00:00:00 Test Item Value Reference Range Interpretation Comments UA Glucose (test code = >=1000 mg/dL A UA Glucose) *ABN*(11/28/2011 19:00:00) [facility] HospitalBvlwopuYYKSAQFLSI1523-01-76 00:00:00 Test Item Value Reference Range Interpretation Comments UA Nitrite (test code Negative (11/28/2011 N = UA Nitrite) 19:00:00) [facility] CenterCqplkyaUXBPGAUCYI2780-15-17 00:00:00 Test Item Value Reference Range Interpretation Comments UA Leuk Est (test Negative (11/28/2011 N code = UA Leuk Est) 19:00:00) [facility] HospitalZybpykkQAKCFPXPQ8567-36-81 20:41:00 Test Item Value Reference Range Interpretation Comments pO2 Roberth (test code = pO2 Roberth) 60 20-49 H [facility] HospitalNjoxnyjRFRCIAIVQ6440-29-03 20:41:00 Test Item Value Reference Range Interpretation Comments pCO2 Roberth (test code = pCO2 Roberth) 41 38-52 N [facility] HospitalZndnhjaMZIHTCMBD2416-02-93 20:41:00 Test Item Value Reference Range Interpretation Comments pH Roberth (test code = pH Roberth) 7.45 7.28-7.42 H [facility] HospitalZytvvniLXBCCYRMZ4317-90-55 20:41:00 Test Item Value Reference Range Interpretation Comments Temp Roberth (test code = Temp Roberth) 37.0 [facility] HospitalWwhiohfTMSCFJLGK0351-07-26 20:41:00 Test Item Value Reference Range Interpretation Comments O2 Sat Roberth (test code = O2 Sat Roberth) 92.0 40.0-70.0 H [facility] HospitalYtccrfxBIKHYLEBP2303-42-35 20:41:00 Test Item Value Reference Range Interpretation Comments BE Roberth (test code = 4 See_Comment H [Automa rohit message] The BE Roberth) system which ge nerated this result transmit rohit reference range : <=2. The reference range was not used to interpr et this result as reji l/abnormal. [facility] HospitalEwdhuutUTDZULTVE7626-90-22 20:41:00 Test Item Value Reference Range Interpretation Comments HCO3 Roberth (test code = HCO3 Roberth) 28.5 22.0-26.0 H [facility] HospitalZnblhmwJXUWICOIO4494-46-30 20:00:00 Test Item Value Reference Range Interpretation Comments Lactic Acid Lvl (test code = Lactic 1.6 0.5-2.2 N Acid Lvl) [facility] HospitalVwqfsamPVBZLCTJM4210-74-21 20:00:00 Test Item Value Reference Range Interpretation Comments Lipase Lvl (test code = Lipase Lvl) 125 73-393 N [facility] HospitalBxclpbaQQUYMTOTO0903-27-57 20:00:00 Test Item Value Reference Range Interpretation Comments Albumin Lvl (test code = Albumin Lvl) 4.2 3.5-5.0 N [facility] HospitalAlvfisxSEOATGIML1468-74-22 20:00:00 Test Item Value Reference Range Interpretation Comments CO2 (test code = CO2) 23 24-32 L [facility] HospitalMlfnkkbVIQXZAISJ5949-28-05 20:00:00 Test Item Value Reference Range Interpretation Comments Chloride Lvl (test code = Chloride Lvl) 98 95-109 N [facility] HospitalSohimdxILOXDSOLY5386-34-26 20:00:00 Test Item Value Reference Range Interpretation Comments Potassium Lvl (test code = Potassium 3.8 3.5-5.1 N Lvl) [facility] HospitalAtuvljxNIAKBJIHR3287-94-27 20:00:00 Test Item Value Reference Range Interpretation Comments Sodium Lvl (test code = Sodium Lvl) 138 135-145 N [facility] HospitalZkdudtpTVTJHORFN2291-10-43 20:00:00 Test Item Value Reference Range Interpretation Comments Creatinine Lvl (test code = Creatinine 0.7 0.5-1.4 N Lvl) [facility] HospitalUvksakgGJKNGZKLK8624-39-42 20:00:00 Test Item Value Reference Range Interpretation Comments BUN (test code = BUN) 9 7-22 N [facility] HospitalOkddfxmHYCMAAEKZ9710-44-76 20:00:00 Test Item Value Reference Range Interpretation Comments Glucose Lvl (test code = Glucose Lvl) 269 70-99 H [facility] HospitalWzptlwbNVHTUWUTY2415-31-19 20:00:00 Test Item Value Reference Range Interpretation Comments B/C Ratio (test code = B/C Ratio) 13 6-25 N [facility] HospitalVxzgvvvLIMNYIRCA5175-34-89 20:00:00 Test Item Value Reference Range Interpretation Comments AGAP (test code = AGAP) 20.8 10.0-20.0 H [facility] HospitalUnbzbcqICWGRJWHF1783-98-29 20:00:00 Test Item Value Reference Range Interpretation Comments Calcium Lvl (test code = Calcium Lvl) 9.3 8.5-10.5 N [facility] HospitalYcgfdcpYZTZUMCFB3228-58-49 20:00:00 Test Item Value Reference Range Interpretation Comments Total Protein (test code = Total 6.7 6.4-8.4 N Protein) [facility] HospitalMftlxrqXTCSTIVHC3232-22-29 20:00:00 Test Item Value Reference Range Interpretation Comments A/G Ratio (test code = A/G Ratio) 1.7 0.7-1.6 H [facility] HospitalCrdxnhxDEHDZWOWD2803-25-58 20:00:00 Test Item Value Reference Range Interpretation Comments Globulin (test code = Globulin) 2.5 2.0-4.0 N [facility] HospitalPyyeaomVSGANFZNB4615-41-90 20:00:00 Test Item Value Reference Range Interpretation Comments AST (test code = AST) 18 See_Comment N [Auto mated message] The system which ge nerated this result transmit rohit reference range : <=37. The reference range was not used to interpr et this result as reji l/abnormal. [facility] HospitalKqqyfvrIQLVBJFAJ5408-83-40 20:00:00 Test Item Value Reference Range Interpretation Comments Alk Phos (test code = Alk Phos) 62 39-136 N [facility] HospitalTinvovrLAFRONKUG4026-27-86 20:00:00 Test Item Value Reference Range Interpretation Comments ALT (test code = ALT) 32 See_Comment N [Auto mated message] The system which ge nerated this result transmit rohit reference range : <=65. The reference range was not used to interpr et this result as reji l/abnormal. [facility] HospitalQpzbzbtXMARLHCZU4081-65-25 20:00:00 Test Item Value Reference Range Interpretation Comments Bili Total (test code = Bili Total) 0.7 0.2-1.3 N [facility] WestTknnhlaBIRJJNKSJH3736-37-13 20:00:00 Test Item Value Reference Range Interpretation Comments Anisocyte (test code = 1+ *ABN*(11/28/2011 A Anisocyte) 15:00:00) [facility] WestYdyfexoQLOVNIXMQD4108-94-79 20:00:00 Test Item Value Reference Range Interpretation Comments Monocytes # (test code 0.1 See_Comment N [Aut omated message] The = Monocytes #) system which generated this result tra nsmitted reference range : <=0.8. The reference r leo was not used to int erpret this result as normal/abnormal . [facility]QpnqdpuMVMAIYOBRT3335-16-89 20:00:00 Test Item Value Reference Range Interpretation Comments Eosinophils # (test code 0.0 See_Comment N [A utomated message] The = Eosinophils #) system whic h generated this result tra nsmitted reference range : <=0.5. The reference r leo was not used to int erpret this result as normal/abnormal . [facility] WestFksxidrYQWATCXJYK1627-20-77 20:00:00 Test Item Value Reference Range Interpretation Comments Basophils # (test code 0.0 See_Comment N [Aut omated message] The = Basophils #) system which generated this result tra nsmitted reference range : <=0.2. The reference r leo was not used to int erpret this result as normal/abnormal . [facility] WestMsuulbnUVHRKJCOYN2014-33-42 20:00:00 Test Item Value Reference Range Interpretation Comments Neut Vac (test code = Slight *ABN*(11/28/2011 A Neut Vac) 15:00:00) [facility] WestNgmwftxVVZVAHOYOD6281-18-71 20:00:00 Test Item Value Reference Range Interpretation Comments Large Plt (test code = Slight *ABN*(11/28/2011 A Large Plt) 15:00:00) [facility] WestYcmnmexGXECJCXDCI8938-35-13 20:00:00 Test Item Value Reference Range Interpretation Comments Segs-Bands # (test code = Segs-Bands #) 5.7 1.5-8.1 N [facility] WestCgyygwrJEEYFSSAHL3501-18-89 20:00:00 Test Item Value Reference Range Interpretation Comments Lymphocytes # (test code = Lymphocytes 0.8 1.0-5.5 L #) [facility] WestEaumxmbRBAPJQTONG7413-74-42 20:00:00 Test Item Value Reference Range Interpretation Comments Eosinophils (test code = 0.2 See_Comment N [A utomated message] The Eosinophils) system which ge nerated this result tra nsmitted reference range : <=4.0. The reference r leo was not used to int erpret this result as normal/abnormal . [facility] WestVlxhociFFJHNACXAQ6644-75-12 20:00:00 Test Item Value Reference Range Interpretation Comments Basophils (test code = 0.0 See_Comment N [Aut omated message] The Basophils) system which ge nerated this result tra nsmitted reference range : <=1.0. The reference r leo was not used to int erpret this result as normal/abnormal . [facility] WestAnyadpjKASJSHXETO7537-08-05 20:00:00 Test Item Value Reference Range Interpretation Comments Monocytes (test code = Monocytes) 1.9 2.0-12.0 L [facility] WestXvnfxgaENZESREKHS5300-57-54 20:00:00 Test Item Value Reference Range Interpretation Comments Segs (test code = Segs) 86.2 45.0-75.0 H [facility] WestOikzxubNVHIWGMJVV6298-95-83 20:00:00 Test Item Value Reference Range Interpretation Comments Lymphocytes (test code = Lymphocytes) 11.7 20.0-40.0 L [facility] WestSbrgqqvUTGUAQFDIB8754-59-29 20:00:00 Test Item Value Reference Range Interpretation Comments MPV (test code = MPV) 10.8 7.4-10.4 H [facility] WestScjfizcWCROJBDNTN8217-13-01 20:00:00 Test Item Value Reference Range Interpretation Comments Platelet (test code = Platelet) 161 133-450 N [facility] WestRikwagvLHTWFPHQBB3743-57-65 20:00:00 Test Item Value Reference Range Interpretation Comments MCHC (test code = MCHC) 35.6 32.0-36.0 N [facility] WestTbcgdguXCCPMECPTJ2899-12-49 20:00:00 Test Item Value Reference Range Interpretation Comments RDW (test code = RDW) 12.4 11.5-14.5 N [facility] WestVichuskXTTQKQDMDY1149-07-69 20:00:00 Test Item Value Reference Range Interpretation Comments MCH (test code = MCH) 30.7 pg 27.0-31.0 N [facility] WestLatolrlDGYTLQZKJY0271-43-74 20:00:00 Test Item Value Reference Range Interpretation Comments MCV (test code = MCV) 86.1 81.0-99.0 N [facility] WestAmobqveMFZGTYKAJC5064-56-58 20:00:00 Test Item Value Reference Range Interpretation Comments Hct (test code = Hct) 33.6 36.0-48.0 L [facility] WestXeshocrLIEYWXBUGM1044-19-70 20:00:00 Test Item Value Reference Range Interpretation Comments Hgb (test code = Hgb) 12.0 12.0-16.0 N [facility] WestQsdygveECLBDNRQZA0982-43-78 20:00:00 Test Item Value Reference Range Interpretation Comments RBC (test code = RBC) 3.90 4.20-5.40 L [facility] WestXkaplijKTJYJGWIHZ7704-21-49 20:00:00 Test Item Value Reference Range Interpretation Comments WBC (test code = WBC) 6.6 3.7-10.4 N [facility]GoczuykZLVFJIIFT3668-57-42 19:51:00 Test Item Value Reference Range Interpretation Comments UDS Note (test code = See Note UDS Note) 5*NA*(11/28/2011 14:51:00) [facility] HospitalKuwzzbpGPHIIOWAC2309-49-49 19:51:00 Test Item Value Reference Range Interpretation Comments U Phencyc Scr (test Negative code = U Phencyc Scr) *NA*(11/28/2011 14:51:00) [facility] HospitalVlhylbgLQBUCXVTW3350-74-99 19:51:00 Test Item Value Reference Range Interpretation Comments U Kelly Scr (test code Negative *NA*(11/28/2011 = U Kelly Scr) 14:51:00) [facility] HospitalKshchshEHMKEQJFM2900-69-75 19:51:00 Test Item Value Reference Range Interpretation Comments U Amph Scr (test code Negative *NA*(11/28/2011 = U Amph Scr) 14:51:00) [facility] HospitalTpzbgweDKJRWCWRK3542-18-10 19:51:00 Test Item Value Reference Range Interpretation Comments U Opiate Scr (test Negative code = U Opiate Scr) *NA*(11/28/2011 14:51:00) [facility] HospitalPwbldkaQIWOOIIDN6355-60-86 19:51:00 Test Item Value Reference Range Interpretation Comments U Cocaine Scr (test Negative code = U Cocaine Scr) *NA*(11/28/2011 14:51:00) [facility] HospitalGlsjuadCBFEKLWZV7238-87-83 19:51:00 Test Item Value Reference Range Interpretation Comments U Cannab Scr (test Negative code = U Cannab Scr) *NA*(11/28/2011 14:51:00) [facility] HospitalDlqjtebSGHJHAKBD9725-43-82 19:51:00 Test Item Value Reference Range Interpretation Comments U Benzodia Scr (test Negative code = U Benzodia Scr) *NA*(11/28/2011 14:51:00) [facility] GLUCOSE MHDMULM6977-63-17 16:20:00 Test Item Value Reference Range Interpretation Comments Comment1 (test code = Comment1) Riccoy RN/ [facility] GLUCOSE DRIGKCA4719-94-40 16:20:00 Test Item Value Reference Range Interpretation Comments Gluc POC Lifscn (test code = Gluc POC 328 70-99 H Lifscn) [facility] CenterOytmngiFGHHTEECA4181-50-11 15:30:00 Test Item Value Reference Range Interpretation Comments U Preg (test code = U Negative (09/18/2011 N Preg) 10:30:00) [facility]TbznubxJUTWORDDJC3562-69-85 15:30:00 Test Item Value Reference Range Interpretation Comments UA WBC (test code = UA None Seen (09/18/2011 N WBC) 10:30:00) [facility]bergXyivxilPUDZMPZAHT1511-54-81 15:30:00 Test Item Value Reference Range Interpretation Comments UA RBC (test None Seen See_Comment N [Automated mes pastor] code = UA RBC) (09/18/2011 The system wh ich 10:30:00) generated this result transmitted ref erence range: <=2. The reference range was not used to int erpret this result as normal/abnormal . [facility]bergRyfensrAGKRAKXGFW8300-54-55 15:30:00 Test Item Value Reference Range Interpretation Comments UA Bacteria (test code = None Seen (09/18/2011 N UA Bacteria) 10:30:00) [facility] CenterNshspbiVRVONHQYDY9804-87-68 15:30:00 Test Item Value Reference Range Interpretation Comments UA Amorph Destiny (test Few /HPF A code = UA Amorph Destiny) *ABN*(09/18/2011 10:30:00) [facility]bergNpcaojnUNNNCKQOAY5742-75-65 15:30:00 Test Item Value Reference Range Interpretation Comments Micro? (test code = Performed (09/18/2011 N Micro?) 10:30:00) [facility]bergHjleouhJYBNWJBWHG4475-91-99 15:30:00 Test Item Value Reference Range Interpretation Comments UA Sq Epi (test code = Rare /LPF (09/18/2011 N UA Sq Epi) 10:30:00) [facility] CenterBdwtdapWJGSZLNOPQ5972-81-67 15:30:00 Test Item Value Reference Range Interpretation Comments UA Ketones (test code = 15 mg/dL A UA Ketones) *ABN*(09/18/2011 10:30:00) [facility] CenterGzsbewuOTNAXSQATS7631-40-14 15:30:00 Test Item Value Reference Range Interpretation Comments UA Glucose (test code = >=1000 mg/dL A UA Glucose) *ABN*(09/18/2011 10:30:00) [facility] CenterObienouZBTTCBHEKH8026-57-75 15:30:00 Test Item Value Reference Range Interpretation Comments UA Protein (test code = Trace A UA Protein) *ABN*(09/18/2011 10:30:00) [facility]QwermkrDLZHPGGUVD8764-24-50 15:30:00 Test Item Value Reference Range Interpretation Comments UA Urobilinogen (test code = UA 0.2 0.1-1.0 N Urobilinogen) [facility]KxszjfdYKVLZFDQME9178-61-31 15:30:00 Test Item Value Reference Range Interpretation Comments UA Blood (test code = Negative (09/18/2011 N UA Blood) 10:30:00) [facility]landsRbnvuncMPZBWGEKZE2160-10-07 15:30:00 Test Item Value Reference Range Interpretation Comments UA Bili (test code = Negative *NA*(09/18/2011 UA Bili) 10:30:00) [facility]landsIolyffeAWLKDFBFEP0193-50-23 15:30:00 Test Item Value Reference Range Interpretation Comments UA Leuk Est (test Negative (09/18/2011 N code = UA Leuk Est) 10:30:00) [facility] CenterJrwpfgzCUTAMOHYCC5837-90-29 15:30:00 Test Item Value Reference Range Interpretation Comments UA Nitrite (test code Negative (09/18/2011 N = UA Nitrite) 10:30:00) [facility]landsVutcpgrAZQTWOTMWI9576-28-11 15:30:00 Test Item Value Reference Range Interpretation Comments UA pH (test code = UA pH) 7.5 1 5.0-8.0 N [facility]landsWjukgtbZUKCQKOLHB1027-47-44 15:30:00 Test Item Value Reference Range Interpretation Comments UA Spec Grav (test code = UA Spec 1.010 1 N Grav) [facility]landsPixkzajGCUFPVFBHJ4164-93-33 15:30:00 Test Item Value Reference Range Interpretation Comments UA Turbidity (test code Slight Cloudy N = UA Turbidity) (09/18/2011 10:30:00) [facility]landsMtrwmctVTKOXIJOQV4429-09-91 15:30:00 Test Item Value Reference Range Interpretation Comments UA Color (test code = Yellow *NA*(09/18/2011 UA Color) 10:30:00) [facility] CenterVtobtwyUMDFKZDPM9028-73-32 14:07:00 Test Item Value Reference Range Interpretation Comments Phosphorus (test code = Phosphorus) 4.4 2.5-4.5 N [facility] HospitalCbomprfPKIHGENUT4030-23-51 14:07:00 Test Item Value Reference Range Interpretation Comments Magnesium Lvl (test code = Magnesium 1.6 1.8-2.4 L Lvl) [facility] IBPVBHD7918-39-41 14:01:00 Test Item Value Reference Range Interpretation Comments Gluc POC Lifscn (test code = Gluc POC no gt 70-99 A Lifscn) [facility] HospitalJlabsitSAVPBBFXK8526-68-25 13:52:00 Test Item Value Reference Range Interpretation Comments pO2 Roberth (test code = pO2 Roberth) 24 20-49 N [facility] HospitalLsmkdriQQIQOMFWK3879-12-57 13:52:00 Test Item Value Reference Range Interpretation Comments HCO3 Roberth (test code = HCO3 Roberth) 32.0 22.0-26.0 H [facility] HospitalKwjodjeSHMYRCMKR8727-06-47 13:52:00 Test Item Value Reference Range Interpretation Comments pCO2 Roberth (test code = pCO2 Roberth) 44 38-52 N [facility] HospitalKxbhhoyPOSNFYCMY6683-54-96 13:52:00 Test Item Value Reference Range Interpretation Comments BE Roberth (test code = 7 See_Comment H [Automa rohit message] The BE Roberth) system which ge nerated this result transmit rohit reference range : <=2. The reference range was not used to interpr et this result as reji l/abnormal. [facility] HospitalVmpbevgWTKQDBHEH2087-78-14 13:52:00 Test Item Value Reference Range Interpretation Comments O2 Sat Roberth (test code = O2 Sat Roberth) 48.0 40.0-70.0 N [facility] HospitalMkkaiceRCNKFROSV7327-59-64 13:52:00 Test Item Value Reference Range Interpretation Comments Temp Roberth (test code = Temp Roberth) 37.0 [facility] HospitalFmutiquRQKXPIPHT8989-22-44 13:52:00 Test Item Value Reference Range Interpretation Comments pH Roberth (test code = pH Roberth) 7.47 7.28-7.42 H [facility] HospitalZrtdvnvSNYDVEBLK6598-19-82 13:52:00 Test Item Value Reference Range Interpretation Comments Calcium Lvl (test code = Calcium Lvl) 10.1 8.5-10.5 N [facility] HospitalMhavsvnCGACEGFVN1900-04-54 13:52:00 Test Item Value Reference Range Interpretation Comments Chloride Lvl (test code = Chloride Lvl) 92 95-109 L [facility] HospitalJvsegpsHJJNOYXFI0396-68-94 13:52:00 Test Item Value Reference Range Interpretation Comments CO2 (test code = CO2) 30 24-32 N [facility] HospitalFohqaysKQFJIZTGV7376-36-08 13:52:00 Test Item Value Reference Range Interpretation Comments Potassium Lvl (test code = Potassium 3.5 3.5-5.1 N Lvl) [facility] HospitalFmafhbtRAWDPWVNB4396-29-88 13:52:00 Test Item Value Reference Range Interpretation Comments Sodium Lvl (test code = Sodium Lvl) 133 135-145 L [facility] HospitalVmyeluoCFFPPLBSJ9582-72-58 13:52:00 Test Item Value Reference Range Interpretation Comments Creatinine Lvl (test code = Creatinine 1.3 0.5-1.4 N Lvl) [facility] HospitalVnocdmjGLHLSHNBN8231-21-72 13:52:00 Test Item Value Reference Range Interpretation Comments Glucose Lvl (test code = Glucose Lvl) 383 70-99 H [facility] HospitalJwjktucFRPXRIRLQ6334-39-22 13:52:00 Test Item Value Reference Range Interpretation Comments BUN (test code = BUN) 17 7-22 N [facility] HospitalFfctisdNAWXOJHDV6026-86-33 13:52:00 Test Item Value Reference Range Interpretation Comments AGAP (test code = AGAP) 14.5 10.0-20.0 N [facility] WestOxkhqliMJMIVAAJNB8271-16-31 13:52:00 Test Item Value Reference Range Interpretation Comments MPV (test code = MPV) 12.0 7.4-10.4 H [facility] WestIgzwjifCWEPRKSQKU2001-65-25 13:52:00 Test Item Value Reference Range Interpretation Comments Platelet (test code = Platelet) 226 133-450 N [facility] WestYbhfsshMRDQIOGMPW8784-88-15 13:52:00 Test Item Value Reference Range Interpretation Comments MCHC (test code = MCHC) 33.7 32.0-36.0 N [facility] WestOcahfgnUZZFNVNWVE1518-25-71 13:52:00 Test Item Value Reference Range Interpretation Comments MCH (test code = MCH) 28.5 pg 27.0-31.0 N [facility] WestPwzskqhEABMFKDUSH8084-24-03 13:52:00 Test Item Value Reference Range Interpretation Comments RDW (test code = RDW) 15.1 11.5-14.5 H [facility] WestNwbomfkCFLXHKVKNA7938-04-56 13:52:00 Test Item Value Reference Range Interpretation Comments MCV (test code = MCV) 84.6 81.0-99.0 N [facility] WestVadwpluGEBQSTNEVN0969-42-53 13:52:00 Test Item Value Reference Range Interpretation Comments Hct (test code = Hct) 36.4 36.0-48.0 N [facility] WestKhdctsyMALEEXFKIL6782-64-49 13:52:00 Test Item Value Reference Range Interpretation Comments Hgb (test code = Hgb) 12.3 12.0-16.0 N [facility] WestXibgmkkRIVNMTJABF3557-59-47 13:52:00 Test Item Value Reference Range Interpretation Comments RBC (test code = RBC) 4.30 4.20-5.40 N [facility] WestJvaooyuWBODWTKIMM7358-01-19 13:52:00 Test Item Value Reference Range Interpretation Comments WBC (test code = WBC) 11.7 3.7-10.4 H [facility] WestPobcfvfHDSTBYMRUF6574-03-22 13:52:00 Test Item Value Reference Range Interpretation Comments Monocytes (test code = Monocytes) 2.9 2.0-12.0 N [facility] WestMsmhataLARZQPRBWC1016-38-29 13:52:00 Test Item Value Reference Range Interpretation Comments Eosinophils (test code = 0.2 See_Comment N [A utomated message] The Eosinophils) system which ge nerated this result tra nsmitted reference range : <=4.0. The reference r leo was not used to int erpret this result as normal/abnormal . [facility] WestGqwydvgAAOCGSAHFQ7728-65-76 13:52:00 Test Item Value Reference Range Interpretation Comments Basophils (test code = 0.0 See_Comment N [Aut omated message] The Basophils) system which ge nerated this result tra nsmitted reference range : <=1.0. The reference r leo was not used to int erpret this result as normal/abnormal . [facility] WestGcowwogUVUUKCHXTN6185-06-36 13:52:00 Test Item Value Reference Range Interpretation Comments Eosinophils # (test code 0.0 See_Comment N [A utomated message] The = Eosinophils #) system whic h generated this result tra nsmitted reference range : <=0.5. The reference r leo was not used to int erpret this result as normal/abnormal . [facility] WestKjtolilDPUVAEFROH1086-99-47 13:52:00 Test Item Value Reference Range Interpretation Comments Monocytes # (test code 0.3 See_Comment N [Aut omated message] The = Monocytes #) system which generated this result tra nsmitted reference range : <=0.8. The reference r leo was not used to int erpret this result as normal/abnormal . [facility] WestPnmbijoAVXXQDDWJL3796-24-82 13:52:00 Test Item Value Reference Range Interpretation Comments Segs (test code = Segs) 92.0 45.0-75.0 H [facility] WestBnysofiDYYEQZDMIM5484-06-67 13:52:00 Test Item Value Reference Range Interpretation Comments Lymphocytes (test code = Lymphocytes) 4.9 20.0-40.0 L [facility] WestPzucogvFRBNGVOQQX7194-02-00 13:52:00 Test Item Value Reference Range Interpretation Comments Spherocyte (test code = Rare A Spherocyte) *ABN*(09/18/2011 08:52:00) [facility] WestMjrjgraUHQTSVZLDK1056-21-98 13:52:00 Test Item Value Reference Range Interpretation Comments Large Plt (test code = Slight *ABN*(09/18/2011 A Large Plt) 08:52:00) [facility] WestQljbladABBRJOZCER4401-77-49 13:52:00 Test Item Value Reference Range Interpretation Comments Microcyte (test code = 1+ *ABN*(09/18/2011 A Microcyte) 08:52:00) [facility] WestDvnqjepFHDWSNVIQN7046-64-38 13:52:00 Test Item Value Reference Range Interpretation Comments Schistocyte (test code = Schistocyte) Rare [facility] WestYcbdopdGAFOWNYUHU7217-90-35 13:52:00 Test Item Value Reference Range Interpretation Comments Macrocyte (test code = 1+ *ABN*(09/18/2011 A Macrocyte) 08:52:00) [facility] WestVaoaenkGHQTBSRBGW2358-55-74 13:52:00 Test Item Value Reference Range Interpretation Comments Lymphocytes # (test code = Lymphocytes 0.6 1.0-5.5 L #) [facility] WestKtzeaepBQFVSTOFEY7129-96-54 13:52:00 Test Item Value Reference Range Interpretation Comments Segs-Bands # (test code = Segs-Bands #) 10.8 1.5-8.1 H [facility] WestQnxcomaEWPFRPEBGX3078-24-47 13:52:00 Test Item Value Reference Range Interpretation Comments Basophils # (test code 0.0 See_Comment N [Aut omated message] The = Basophils #) system which generated this result tra nsmitted reference range : <=0.2. The reference r leo was not used to int erpret this result as normal/abnormal . [facility] CenterWzvnyinZMQDTCSCCW5877-20-04 13:52:00 Test Item Value Reference Range Interpretation Comments Anisocyte (test code = 1+ *ABN*(09/18/2011 A Anisocyte) 08:52:00) [facility] CenterOtwsracZPFYAPYZFI9798-18-53 13:52:00 Test Item Value Reference Range Interpretation Comments CDC-HIV 1/2 Ab (test Negative *NA*(09/18/2011 code = CDC-HIV 1/2 08:52:00) Ab) [facility] GLUCOSE MIQGWRV1681-83-38 17:34:00 Test Item Value Reference Range Interpretation Comments Gluc POC Lifscn (test code = Gluc POC 215 70-99 H Lifscn) [facility] GLUCOSE UWMWRNQ4733-41-75 17:34:00 Test Item Value Reference Range Interpretation Comments Comment1 (test code = Comment1) Notify RN/ [facility] GLUCOSE SIVLPXE3734-78-47 11:43:00 Test Item Value Reference Range Interpretation Comments Comment1 (test code = Comment1) Notify RN/ [facility] GLUCOSE ZUJELND2434-65-44 11:43:00 Test Item Value Reference Range Interpretation Comments Gluc POC Lifscn (test code = Gluc POC 91 65-110 N Lifscn) [facility] GLUCOSE EMOTUML6878-50-49 02:45:00 Test Item Value Reference Range Interpretation Comments Comment1 (test code = Comment1) Notify RN/ [facility] GLUCOSE FEZZSOP5640-71-79 02:45:00 Test Item Value Reference Range Interpretation Comments Gluc POC Lifscn (test code = Gluc POC 148 65-110 H Lifscn) [facility] CenterIhjtlulVHTHCRSZF2655-56-60 08:47:00 Test Item Value Reference Range Interpretation Comments Sodium Lvl (test code = Sodium Lvl) 143 135-145 N [facility]bergVbwmbdfTAGJCFKBY2251-97-43 08:47:00 Test Item Value Reference Range Interpretation Comments Glucose Lvl (test code = Glucose Lvl) 105 [facility] HospitalHxmgoavZVHJRRFAH6714-03-34 08:47:00 Test Item Value Reference Range Interpretation Comments CO2 (test code = CO2) 29 24-32 N [facility] HospitalXjfvzoyCJILGRRZE3330-16-09 08:47:00 Test Item Value Reference Range Interpretation Comments Chloride Lvl (test code = Chloride Lvl) 103 95-109 N [facility] HospitalLtxbmyeSXUUCDOCG9749-72-32 08:47:00 Test Item Value Reference Range Interpretation Comments BUN (test code = BUN) 10 7-22 N [facility] HospitalDcdkvkhPNJJZVGAQ7413-49-71 08:47:00 Test Item Value Reference Range Interpretation Comments Potassium Lvl (test code = Potassium 3.8 3.5-5.1 N Lvl) [facility] HospitalNebjbiiACNWWCVXE8847-74-44 08:47:00 Test Item Value Reference Range Interpretation Comments Creatinine Lvl (test code = Creatinine 0.6 0.5-1.4 N Lvl) [facility] HospitalXlzojdbGBFHSDCQM6187-96-92 08:47:00 Test Item Value Reference Range Interpretation Comments Calcium Lvl (test code = Calcium Lvl) 8.5 8.5-10.5 N [facility] HospitalGgqdmmlFRZTCEEYJ4551-83-52 08:47:00 Test Item Value Reference Range Interpretation Comments AGAP (test code = AGAP) 14.8 10.0-20.0 N [facility] WestUblicdtRUPOCKTCQG8894-17-98 08:47:00 Test Item Value Reference Range Interpretation Comments MCH (test code = MCH) 28.9 pg 27.0-31.0 N [facility] WestZaaokcwBTRBSLWCQB1281-59-46 08:47:00 Test Item Value Reference Range Interpretation Comments MCV (test code = MCV) 82.1 81.0-99.0 N [facility] WestUmkgcggTOYHSJRSSM5215-55-49 08:47:00 Test Item Value Reference Range Interpretation Comments Hct (test code = Hct) 25.9 36.0-48.0 L [facility] WestEvsvieaRVOWKUPDPD1488-62-71 08:47:00 Test Item Value Reference Range Interpretation Comments Platelet (test code = Platelet) 233 133-450 N [facility] WestOfcfvjpEISVYFVQUB0872-49-69 08:47:00 Test Item Value Reference Range Interpretation Comments RDW (test code = RDW) 14.5 11.5-14.5 N [facility] WestSwqnwxvDQEJZQAAKJ2929-72-39 08:47:00 Test Item Value Reference Range Interpretation Comments MCHC (test code = MCHC) 35.2 32.0-36.0 N [facility] WestEaqyrtbIFISEFUJII8660-33-29 08:47:00 Test Item Value Reference Range Interpretation Comments Hgb (test code = Hgb) 9.1 12.0-16.0 L [facility] WestNnygdkoTGRTLZSWYL3200-68-91 08:47:00 Test Item Value Reference Range Interpretation Comments RBC (test code = RBC) 3.15 4.20-5.40 L [facility] WestCxnhscnVQWMPQHWQZ8820-80-98 08:47:00 Test Item Value Reference Range Interpretation Comments MPV (test code = MPV) 9.0 7.4-10.4 N [facility] WestPwoajyrJDDTWCBJYU9638-27-87 08:47:00 Test Item Value Reference Range Interpretation Comments WBC (test code = WBC) 6.3 3.7-10.4 N [facility] WestFmgwvstGSRJCMBNXP6444-27-26 08:47:00 Test Item Value Reference Range Interpretation Comments Eosinophils # (test code 0.0 See_Comment N [A utomated message] The = Eosinophils #) system whic h generated this result tra nsmitted reference range : <=0.5. The reference r leo was not used to int erpret this result as normal/abnormal . [facility] WestPseikqvTEJGKUSVUP5973-15-12 08:47:00 Test Item Value Reference Range Interpretation Comments Basophils # (test code 0.0 See_Comment N [Aut omated message] The = Basophils #) system which generated this result tra nsmitted reference range : <=0.2. The reference r leo was not used to int erpret this result as normal/abnormal . [facility]ZifontbBJJSAAEYXV8457-35-82 08:47:00 Test Item Value Reference Range Interpretation Comments Segs-Bands # (test code = Segs-Bands #) 3.8 1.5-8.1 N [facility] WestJwmlxhhEZTHTZXHSZ9155-96-84 08:47:00 Test Item Value Reference Range Interpretation Comments Lymphocytes # (test code = Lymphocytes 2.0 1.0-5.5 N #) [facility] WestIvxwgypQZAOSAQIXX9764-96-71 08:47:00 Test Item Value Reference Range Interpretation Comments Basophils (test code = 0.5 See_Comment N [Aut omated message] The Basophils) system which ge nerated this result tra nsmitted reference range : <=1.0. The reference r leo was not used to int erpret this result as normal/abnormal . [facility] WestTsomrdrHLVISROBMK9594-22-89 08:47:00 Test Item Value Reference Range Interpretation Comments Eosinophils (test code = 0.7 See_Comment N [A utomated message] The Eosinophils) system which ge nerated this result tra nsmitted reference range : <=4.0. The reference r leo was not used to int erpret this result as normal/abnormal . [facility] WestGdzlwqqUZYQJTBMZE1871-58-80 08:47:00 Test Item Value Reference Range Interpretation Comments Monocytes (test code = Monocytes) 6.2 2.0-12.0 N [facility] WestBdvbpbpIJQJLJBPUA4856-12-60 08:47:00 Test Item Value Reference Range Interpretation Comments Segs (test code = Segs) 61.1 45.0-75.0 N [facility] WestRzgldouOFORACZXMV5707-36-96 08:47:00 Test Item Value Reference Range Interpretation Comments Lymphocytes (test code = Lymphocytes) 31.5 20.0-40.0 N [facility] WestYsckcauYGXZUXMHUV0540-22-39 08:47:00 Test Item Value Reference Range Interpretation Comments Monocytes # (test code 0.4 See_Comment N [Aut omated message] The = Monocytes #) system which generated this result tra nsmitted reference range : <=0.8. The reference r leo was not used to int erpret this result as normal/abnormal . [facility] CenterHypopszIDRHEKUYN5150-36-82 10:54:00 Test Item Value Reference Range Interpretation Comments CO2 (test code = CO2) 27 24-32 N [facility] HospitalEkbrawlGKBWNSHPT8079-26-51 10:54:00 Test Item Value Reference Range Interpretation Comments Chloride Lvl (test code = Chloride Lvl) 104 95-109 N [facility] HospitalZkijbtmCXUTZLVGP9892-52-39 10:54:00 Test Item Value Reference Range Interpretation Comments Creatinine Lvl (test code = Creatinine 0.5 0.5-1.4 N Lvl) [facility] HospitalMuezchvHSVFFKHST4648-54-47 10:54:00 Test Item Value Reference Range Interpretation Comments BUN (test code = BUN) 10 7-22 N [facility] HospitalCfoogvuOIJCFVFTE7031-38-99 10:54:00 Test Item Value Reference Range Interpretation Comments Potassium Lvl (test code = Potassium 4.1 3.5-5.1 N Lvl) [facility] HospitalSixscewLCNDJMDWX6276-10-49 10:54:00 Test Item Value Reference Range Interpretation Comments Sodium Lvl (test code = Sodium Lvl) 141 135-145 N [facility] HospitalBfyqbmrZKOQQUZIZ2021-25-04 10:54:00 Test Item Value Reference Range Interpretation Comments Glucose Lvl (test code = Glucose Lvl) 83 [facility] HospitalUqfzgypSLPRXAEOG3138-39-00 10:54:00 Test Item Value Reference Range Interpretation Comments Calcium Lvl (test code = Calcium Lvl) 8.4 8.5-10.5 L [facility] HospitalHoywrztMVXOCCUPN2092-02-92 10:54:00 Test Item Value Reference Range Interpretation Comments AGAP (test code = AGAP) 14.1 10.0-20.0 N [facility] WestNnnksyrOLKQMFFGSS2613-91-29 10:54:00 Test Item Value Reference Range Interpretation Comments Hct (test code = Hct) 35.5 36.0-48.0 L [facility] WestRlgcpjsBDTXMLYQLO7422-06-63 10:54:00 Test Item Value Reference Range Interpretation Comments WBC (test code = WBC) 4.7 3.7-10.4 N [facility] WestQiicvmbDKLOJKDXFM4435-25-56 10:54:00 Test Item Value Reference Range Interpretation Comments MCV (test code = MCV) 92.6 81.0-99.0 N [facility] WestCdpaattXULZOTGGMF2329-16-80 10:54:00 Test Item Value Reference Range Interpretation Comments MCH (test code = MCH) 31.4 pg 27.0-31.0 H [facility] WestStxwjpyJXPIBLCYQY0550-59-80 10:54:00 Test Item Value Reference Range Interpretation Comments RBC (test code = RBC) 3.84 4.20-5.40 L [facility] WestQsjshkwGFGQLPRTJL5142-11-85 10:54:00 Test Item Value Reference Range Interpretation Comments Hgb (test code = Hgb) 12.1 12.0-16.0 N [facility] WestEpajsfgXUOYFVTLKU4946-06-38 10:54:00 Test Item Value Reference Range Interpretation Comments Platelet (test code = Platelet) 287 133-450 N [facility] WestEcrckvkQIBLYTCWFA1221-93-49 10:54:00 Test Item Value Reference Range Interpretation Comments RDW (test code = RDW) 12.7 11.5-14.5 N [facility] WestCdrlpbgMSJBRXZHGS2744-86-81 10:54:00 Test Item Value Reference Range Interpretation Comments MCHC (test code = MCHC) 33.9 32.0-36.0 N [facility] WestThkicapVPQDHSDEPH3746-37-21 10:54:00 Test Item Value Reference Range Interpretation Comments MPV (test code = MPV) 7.2 7.4-10.4 L [facility] WestNpfbqseJTFPIEZMPG8789-75-91 10:54:00 Test Item Value Reference Range Interpretation Comments INR (test code = INR) 0.95 0.85-1.17 N [facility] WestVakhagrIZLBGYWTJG0636-13-07 10:54:00 Test Item Value Reference Range Interpretation Comments PT (test code = PT) 12.7 s 12.0-14.7 N [facility] WestZxocxypCVVKJIXIMU7527-02-21 10:54:00 Test Item Value Reference Range Interpretation Comments PTT (test code = PTT) 28.5 s 22.9-35.8 N [facility] WestAjblkywWOKXUTFJCS1238-21-45 10:54:00 Test Item Value Reference Range Interpretation Comments Eosinophils # (test code 0.1 See_Comment N [A utomated message] The = Eosinophils #) system whic h generated this result tra nsmitted reference range : <=0.5. The reference r leo was not used to int erpret this result as normal/abnormal . [facility] WestNeiujjzJNONTNNGTO1815-17-14 10:54:00 Test Item Value Reference Range Interpretation Comments Basophils # (test code 0.0 See_Comment N [Aut omated message] The = Basophils #) system which generated this result tra nsmitted reference range : <=0.2. The reference r leo was not used to int erpret this result as normal/abnormal . [facility] WestHbwvwqaBCPCYYJEKU5348-62-06 10:54:00 Test Item Value Reference Range Interpretation Comments Basophils (test code = 0.4 See_Comment N [Aut omated message] The Basophils) system which ge nerated this result tra nsmitted reference range : <=1.0. The reference r leo was not used to int erpret this result as normal/abnormal . [facility] WestHcjeklxHKOOBRKCJG0481-73-66 10:54:00 Test Item Value Reference Range Interpretation Comments Segs-Bands # (test code = Segs-Bands #) 2.1 1.5-8.1 N [facility] WestTcufxfdYVBGHBNVBX4330-48-40 10:54:00 Test Item Value Reference Range Interpretation Comments Monocytes (test code = Monocytes) 9.0 2.0-12.0 N [facility] WestXhhvxdiFECLGDOIKU0819-09-15 10:54:00 Test Item Value Reference Range Interpretation Comments Eosinophils (test code = 2.4 See_Comment N [A utomated message] The Eosinophils) system which ge nerated this result tra nsmitted reference range : <=4.0. The reference r leo was not used to int erpret this result as normal/abnormal . [facility] WestWerdaldUZPGXRVTZN3748-19-50 10:54:00 Test Item Value Reference Range Interpretation Comments Monocytes # (test code 0.4 See_Comment N [Aut omated message] The = Monocytes #) system which generated this result tra nsmitted reference range : <=0.8. The reference r leo was not used to int erpret this result as normal/abnormal . [facility] WestUpfqjkxJUGFNRVNSF5002-52-07 10:54:00 Test Item Value Reference Range Interpretation Comments Lymphocytes # (test code = Lymphocytes 2.0 1.0-5.5 N #) [facility] WestTscliwfJQGDGIZIKE5041-93-51 10:54:00 Test Item Value Reference Range Interpretation Comments Lymphocytes (test code = Lymphocytes) 42.8 20.0-40.0 H [facility] WestWxzwcfxKFJHSIASHO9974-26-45 10:54:00 Test Item Value Reference Range Interpretation Comments Segs (test code = Segs) 45.4 45.0-75.0 N [facility] HospitalMsuvptvWCALGAXYM3487-16-99 10:02:00 Test Item Value Reference Range Interpretation Comments Chloride Lvl (test code = Chloride Lvl) 105 95-109 N [facility] HospitalKduejykSPTOENSQC4963-22-23 10:02:00 Test Item Value Reference Range Interpretation Comments Potassium Lvl (test code = Potassium 4.1 3.5-5.1 N Lvl) [facility] HospitalDouaqipCCNHOSQDD6704-72-53 10:02:00 Test Item Value Reference Range Interpretation Comments Sodium Lvl (test code = Sodium Lvl) 143 135-145 N [facility] HospitalAnvuwxaDLHTETKXR7206-60-51 10:02:00 Test Item Value Reference Range Interpretation Comments CO2 (test code = CO2) 29 24-32 N [facility] HospitalEzabiabZROHQULTD7843-03-37 10:02:00 Test Item Value Reference Range Interpretation Comments Calcium Lvl (test code = Calcium Lvl) 8.7 8.5-10.5 N [facility] HospitalCwbnpcgEHFJPNRWY1111-07-37 10:02:00 Test Item Value Reference Range Interpretation Comments BUN (test code = BUN) 6 7-22 L [facility] HospitalXqmstrlDRXHIAPCB6495-67-28 10:02:00 Test Item Value Reference Range Interpretation Comments Creatinine Lvl (test code = Creatinine 0.6 0.5-1.4 N Lvl) [facility] HospitalBcwnlvsAVNFZSASX8619-66-94 10:02:00 Test Item Value Reference Range Interpretation Comments Glucose Lvl (test code = Glucose Lvl) 118 [facility] HospitalGwwnudtBFYFPYDDH6955-94-20 10:02:00 Test Item Value Reference Range Interpretation Comments AGAP (test code = AGAP) 13.1 10.0-20.0 N [facility] WestHpwtinbZROLTBGJUJ7142-39-27 10:02:00 Test Item Value Reference Range Interpretation Comments Basophils # (test code 0.0 See_Comment N [Aut omated message] The = Basophils #) system which generated this result tra nsmitted reference range : <=0.2. The reference r leo was not used to int erpret this result as normal/abnormal . [facility] WestOlaljwfRMFERDYSAN0438-87-32 10:02:00 Test Item Value Reference Range Interpretation Comments Monocytes # (test code 0.3 See_Comment N [Aut omated message] The = Monocytes #) system which generated this result tra nsmitted reference range : <=0.8. The reference r leo was not used to int erpret this result as normal/abnormal . [facility] WestEuwtqrdAPJYEJOFHU1538-35-33 10:02:00 Test Item Value Reference Range Interpretation Comments Eosinophils # (test code 0.1 See_Comment N [A utomated message] The = Eosinophils #) system whic h generated this result tra nsmitted reference range : <=0.5. The reference r leo was not used to int erpret this result as normal/abnormal . [facility] WestAubtudrAHUVDSNOIS3062-20-87 10:02:00 Test Item Value Reference Range Interpretation Comments Segs-Bands # (test code = Segs-Bands #) 2.8 1.5-8.1 N [facility] WestNwebwvhNSQCFPHRPR3641-53-96 10:02:00 Test Item Value Reference Range Interpretation Comments Lymphocytes # (test code = Lymphocytes 1.7 1.0-5.5 N #) [facility] WestWvjjujtQJOLRIWWPU0889-15-31 10:02:00 Test Item Value Reference Range Interpretation Comments Basophils (test code = 0.6 See_Comment N [Aut omated message] The Basophils) system which ge nerated this result tra nsmitted reference range : <=1.0. The reference r leo was not used to int erpret this result as normal/abnormal . [facility] WestPaasxpsJZHQZOIAYT8988-82-01 10:02:00 Test Item Value Reference Range Interpretation Comments Monocytes (test code = Monocytes) 6.9 2.0-12.0 N [facility] WestPghfxtcENUUDGQDEQ7381-14-99 10:02:00 Test Item Value Reference Range Interpretation Comments Eosinophils (test code = 2.0 See_Comment N [A utomated message] The Eosinophils) system which ge nerated this result tra nsmitted reference range : <=4.0. The reference r leo was not used to int erpret this result as normal/abnormal . [facility] WestUwbvqroFZTNHYAVJV4801-05-85 10:02:00 Test Item Value Reference Range Interpretation Comments Segs (test code = Segs) 55.8 45.0-75.0 N [facility] WestHcxtqgoTTJDNHNNGP4379-92-36 10:02:00 Test Item Value Reference Range Interpretation Comments Lymphocytes (test code = Lymphocytes) 34.7 20.0-40.0 N [facility] WestDkjbviiXVZGQCIZOZ7338-63-84 10:02:00 Test Item Value Reference Range Interpretation Comments PTT (test code = PTT) 32.2 s 22.9-35.8 N [facility] WestYzvivpkVZQIZJOGOU4185-70-18 10:02:00 Test Item Value Reference Range Interpretation Comments PT (test code = PT) 13.3 s 12.0-14.7 N [facility] WestKatycohDXVBKUDWFI6063-26-11 10:02:00 Test Item Value Reference Range Interpretation Comments INR (test code = INR) 1.01 0.85-1.17 N [facility] WestUcabwzwBRBXFGDFAQ2298-48-88 10:02:00 Test Item Value Reference Range Interpretation Comments Hct (test code = Hct) 27.5 36.0-48.0 L [facility] WestNrqphxgWNLVIWFHOF6819-40-91 10:02:00 Test Item Value Reference Range Interpretation Comments RBC (test code = RBC) 3.34 4.20-5.40 L [facility] WestOfapdjjMCVQUXMLHB0781-26-06 10:02:00 Test Item Value Reference Range Interpretation Comments Hgb (test code = Hgb) 9.7 12.0-16.0 L [facility] WestNajgjxsKGRJBJYEUP2965-40-62 10:02:00 Test Item Value Reference Range Interpretation Comments WBC (test code = WBC) 5.0 3.7-10.4 N [facility] WestGqzyshqCLLWVOTLLL2942-41-63 10:02:00 Test Item Value Reference Range Interpretation Comments MPV (test code = MPV) 9.2 7.4-10.4 N [facility] WestMyxccehTMYOEITWHO8426-94-48 10:02:00 Test Item Value Reference Range Interpretation Comments Platelet (test code = Platelet) 240 133-450 N [facility] WestHkajhqhDIPKRAJMFA3313-41-40 10:02:00 Test Item Value Reference Range Interpretation Comments RDW (test code = RDW) 14.3 11.5-14.5 N [facility] WestZsjbmxeRIGXACDHHD3755-00-96 10:02:00 Test Item Value Reference Range Interpretation Comments MCHC (test code = MCHC) 35.2 32.0-36.0 N [facility] WestLtyreyhXIGVLBTWEM1925-95-02 10:02:00 Test Item Value Reference Range Interpretation Comments MCH (test code = MCH) 28.9 pg 27.0-31.0 N [facility] WestMfzmcogWROCITWLSW8964-93-02 10:02:00 Test Item Value Reference Range Interpretation Comments MCV (test code = MCV) 82.1 81.0-99.0 N [facility] HospitalKifqqbhFYNFTLUKN4040-94-28 09:24:00 Test Item Value Reference Range Interpretation Comments Magnesium Lvl (test code = Magnesium 2.1 1.8-2.4 N Lvl) [facility]AystdwkYuudebugzeba8397-99-23 00:32:00 Test Item Value Reference Range Interpretation Comments Culture: Aspirate/Body Fluid/Tissue (test code = Culture: Aspirate/Body Fluid/Tissue) [facility] HospitalIsnvuzrOtdwbwzogjwl1928-51-78 00:32:00 Test Item Value Reference Range Interpretation Comments Culture: Anaerobic (test code = Culture: Anaerobic) [facility] HospitalZcuzvzsHJIQFFRDH2748-52-06 17:10:00 Test Item Value Reference Range Interpretation Comments Temp Rboerth (test code = Temp Roberth) 37.0 [facility] HospitalQizqadsFEPSHBKHZ6635-12-33 17:10:00 Test Item Value Reference Range Interpretation Comments O2 Sat Roberth (test code = O2 Sat Roberth) 27.0 40.0-70.0 L [facility] HospitalSqfqmeeFKDCBLSGL2238-58-70 17:10:00 Test Item Value Reference Range Interpretation Comments pCO2 Roberth (test code = pCO2 Roberth) 47 38-52 N [facility] HospitalBskvjgqWYPJGXTJD1220-50-29 17:10:00 Test Item Value Reference Range Interpretation Comments pH Roberth (test code = pH Roberth) 7.37 7.28-7.42 N [facility] HospitalEnojlbsWTIPDQZUU7983-81-64 17:10:00 Test Item Value Reference Range Interpretation Comments BE Roberth (test code = 1 See_Comment N [Automa rohit message] The BE Roberth) system which ge nerated this result transmit rohit reference range : <=2. The reference range was not used to interpr et this result as reji l/abnormal. [facility] HospitalYhxtnrjLHRDGSNCU3929-68-64 17:10:00 Test Item Value Reference Range Interpretation Comments HCO3 Roberth (test code = HCO3 Roberth) 27.2 22.0-26.0 H [facility] HospitalSazphmyBDIZEASXP3310-15-15 17:10:00 Test Item Value Reference Range Interpretation Comments pO2 Roberth (test code = pO2 Roberth) 19 20-49 L [facility] HospitalBgfwhltKqqxkkhwrmzi4042-48-49 14:18:00 Test Item Value Reference Range Interpretation Comments Culture: Blood (test code = Culture: Blood) [facility] HospitalWrfdoadCjstyjrceoil2865-31-96 14:18:00 Test Item Value Reference Range Interpretation Comments Culture: Wound/Abscess w/Gram Stain (test code = Culture: Wound/Abscess w/Gram Stain) [facility] HospitalQhrkdfzOLVDCYOQJ1408-43-65 13:09:00 Test Item Value Reference Range Interpretation Comments Lactic Acid Lvl (test code = Lactic 1.0 0.5-2.2 N Acid Lvl) [facility] HospitalUzimjhcPRMUCQFDK0461-53-43 12:20:00 Test Item Value Reference Range Interpretation Comments U Preg (test code = U Negative (09/01/2011 N Preg) 07:20:00) [facility]RepdjimHPZAAYZGOY1688-40-93 12:20:00 Test Item Value Reference Range Interpretation Comments UA Sq Epi (test code Occasional /LPF N = UA Sq Epi) (09/01/2011 07:20:00) [facility] HospitalPhszfnyKXRFSCXICO4632-21-83 12:20:00 Test Item Value Reference Range Interpretation Comments UA Leuk Est (test Negative (09/01/2011 N code = UA Leuk Est) 07:20:00) [facility]landsOhhqlcfJOEEKGSEYH4489-36-64 12:20:00 Test Item Value Reference Range Interpretation Comments UA Nitrite (test code Negative (09/01/2011 N = UA Nitrite) 07:20:00) [facility] HospitalGcotzfcXZESRUVNRQ2679-60-28 12:20:00 Test Item Value Reference Range Interpretation Comments UA Urobilinogen (test code = UA 0.2 0.1-1.0 N Urobilinogen) [facility] HospitalRkexbtuUDSJCLGVJO8781-56-81 12:20:00 Test Item Value Reference Range Interpretation Comments UA Blood (test code = Negative (09/01/2011 N UA Blood) 07:20:00) [facility] HospitalDgecxugNRCJTELDLJ4692-41-75 12:20:00 Test Item Value Reference Range Interpretation Comments UA Ketones (test code = >=80 mg/dL A UA Ketones) *ABN*(09/01/2011 07:20:00) [facility] HospitalFhoqpxkOBJNGUHEBJ5966-75-57 12:20:00 Test Item Value Reference Range Interpretation Comments UA Protein (test code Negative (09/01/2011 N = UA Protein) 07:20:00) [facility]landsXflvluzTAAMMIJFET5039-81-50 12:20:00 Test Item Value Reference Range Interpretation Comments UA pH (test code = UA pH) 6.0 1 5.0-8.0 N [facility]landsGogivtnNASIEQLXAZ7783-29-89 12:20:00 Test Item Value Reference Range Interpretation Comments UA Bili (test code = Negative (09/01/2011 N UA Bili) 07:20:00) [facility] HospitalVvripbaIFNCQIBVTG0717-51-69 12:20:00 Test Item Value Reference Range Interpretation Comments UA Glucose (test code = >=1000 mg/dL A UA Glucose) *ABN*(09/01/2011 07:20:00) [facility] CenterAtfqumpARVHEFZCOA0236-78-31 12:20:00 Test Item Value Reference Range Interpretation Comments UA Spec Grav (test code = UA Spec 1.035 1 H Grav) [facility] CenterOtgxsokDUQVORWWCQ0986-69-87 12:20:00 Test Item Value Reference Range Interpretation Comments UA Turbidity (test code = Clear (09/01/2011 N UA Turbidity) 07:20:00) [facility] CenterFxtgmotLELCMAFLHJ2415-20-36 12:20:00 Test Item Value Reference Range Interpretation Comments UA Color (test code = Yellow *NA*(09/01/2011 UA Color) 07:20:00) [facility] CenterXalqpedGDKGSIJHS2903-88-90 08:00:00 Test Item Value Reference Range Interpretation Comments Lactic Acid Lvl (test code = Lactic 2.8 0.5-2.2 H Acid Lvl) [facility] HospitalVlrewveFGAVFOWWL7049-13-40 07:47:00 Test Item Value Reference Range Interpretation Comments Magnesium Lvl (test code = Magnesium 1.5 1.8-2.4 L Lvl) [facility] CenterVyfalnzCYTUPGNDOQ0756-74-23 07:47:00 Test Item Value Reference Range Interpretation Comments Polychrom (test code = Slight (09/01/2011 N Polychrom) 02:47:00) [facility] CenterCfytjzwLRSWRIVQGL7011-50-31 07:47:00 Test Item Value Reference Range Interpretation Comments Anisocyte (test code = 1+ *ABN*(09/01/2011 A Anisocyte) 02:47:00) [facility] WestAcutnhiYNZANDFYOM9489-19-07 07:47:00 Test Item Value Reference Range Interpretation Comments Large Plt (test code = Slight *ABN*(09/01/2011 A Large Plt) 02:47:00) [facility] CenterKfjufzmBMIJAXOYBX1709-15-49 07:47:00 Test Item Value Reference Range Interpretation Comments Tear Cell (test code = Tear Cell) [facility]QapcsqjXDOCEDBJSD6024-12-91 07:47:00 Test Item Value Reference Range Interpretation Comments Elliptocyte (test code = Slight A Elliptocyte) *ABN*(09/01/2011 02:47:00) [facility] CenterBEDSIDE GLUCOSE DCJBJGD8771-66-49 17:02:00 Test Item Value Reference Range Interpretation Comments Comment1 (test code = Comment1) Notify RN/ [facility] GLUCOSE RYJLUSB2241-89-42 17:02:00 Test Item Value Reference Range Interpretation Comments Gluc POC Lifscn (test code = Gluc POC 134 65-110 H Lifscn) [facility] GLUCOSE XFDUOYX2016-46-41 13:45:00 Test Item Value Reference Range Interpretation Comments Gluc POC Lifscn (test code = Gluc POC 182 65-110 H Lifscn) [facility] GLUCOSE KGIXXWZ7455-22-66 13:45:00 Test Item Value Reference Range Interpretation Comments Comment1 (test code = Comment1) [facility] HospitalIgmiosdIRJQPQZGR5221-25-01 10:22:00 Test Item Value Reference Range Interpretation Comments Phosphorus (test code = Phosphorus) 3.0 2.5-4.5 N [facility] HospitalYbhxrkuARPOYYMKY9423-18-84 10:22:00 Test Item Value Reference Range Interpretation Comments Magnesium Lvl (test code = Magnesium 1.8 1.8-2.4 N Lvl) [facility] HospitalWktqdjcNGXPMDFEL6033-79-70 10:22:00 Test Item Value Reference Range Interpretation Comments Chloride Lvl (test code = Chloride Lvl) 107 95-109 N [facility] HospitalOfqmrrcPSEAFYMLB3987-34-34 10:22:00 Test Item Value Reference Range Interpretation Comments Potassium Lvl (test code = Potassium 3.0 3.5-5.1 A Lvl) [facility] HospitalTcsrtsiFHQSRNWLM9531-44-59 10:22:00 Test Item Value Reference Range Interpretation Comments Sodium Lvl (test code = Sodium Lvl) 141 135-145 N [facility] CenterYzfkfnnXEFGXNNIU3076-71-07 10:22:00 Test Item Value Reference Range Interpretation Comments Creatinine Lvl (test code = Creatinine 0.6 0.5-1.4 N Lvl) [facility] HospitalJjepphmMUWAIJQOI3685-96-42 10:22:00 Test Item Value Reference Range Interpretation Comments CO2 (test code = CO2) 23 24-32 L [facility]JorqanjZDEDRMJWR6294-37-53 10:22:00 Test Item Value Reference Range Interpretation Comments Calcium Lvl (test code = Calcium Lvl) 7.3 8.5-10.5 L [facility] HospitalPsrkfuxBHAWYJQSJ6796-05-07 10:22:00 Test Item Value Reference Range Interpretation Comments Glucose Lvl (test code = Glucose Lvl) 136 [facility] HospitalTrsbzcmLHGRCMMXQ5819-38-06 10:22:00 Test Item Value Reference Range Interpretation Comments AGAP (test code = AGAP) 14.0 10.0-20.0 N [facility] HospitalQgfdoiuGCOSGBXQM9842-62-78 10:22:00 Test Item Value Reference Range Interpretation Comments BUN (test code = BUN) 5 7-22 L [facility] WestFukeyenZFZXJAVDVI9979-27-35 10:22:00 Test Item Value Reference Range Interpretation Comments Segs (test code = Segs) 69.6 45.0-75.0 N [facility] WestCtlvxucJPHHWEMHAB5341-86-54 10:22:00 Test Item Value Reference Range Interpretation Comments Lymphocytes (test code = Lymphocytes) 21.5 20.0-40.0 N [facility]JdkgewaMGHXGEAMOZ0420-37-37 10:22:00 Test Item Value Reference Range Interpretation Comments Monocytes (test code = Monocytes) 7.6 2.0-12.0 N [facility] WestOdwtihbCLLHILBDVZ4172-25-17 10:22:00 Test Item Value Reference Range Interpretation Comments Eosinophils (test code = 1.0 See_Comment N [A utomated message] The Eosinophils) system which ge nerated this result tra nsmitted reference range : <=4.0. The reference r leo was not used to int erpret this result as normal/abnormal . [facility] WestInutjosBVOFMAXEGS9595-52-98 10:22:00 Test Item Value Reference Range Interpretation Comments Basophils (test code = 0.3 See_Comment N [Aut omated message] The Basophils) system which ge nerated this result tra nsmitted reference range : <=1.0. The reference r leo was not used to int erpret this result as normal/abnormal . [facility] WestDobfcrhWGHVFIFWMK2840-13-89 10:22:00 Test Item Value Reference Range Interpretation Comments Segs-Bands # (test code = Segs-Bands #) 4.8 1.5-8.1 N [facility] WestKllztlcOYQCZLNYUR7449-09-44 10:22:00 Test Item Value Reference Range Interpretation Comments Eosinophils # (test code 0.1 See_Comment N [A utomated message] The = Eosinophils #) system whic h generated this result tra nsmitted reference range : <=0.5. The reference r leo was not used to int erpret this result as normal/abnormal . [facility] WestVmbqbkpKCDWVXUTIT8940-96-71 10:22:00 Test Item Value Reference Range Interpretation Comments Lymphocytes # (test code = Lymphocytes 1.5 1.0-5.5 N #) [facility] WestOiqznqkLCNDIEQEMD9717-60-92 10:22:00 Test Item Value Reference Range Interpretation Comments Monocytes # (test code 0.5 See_Comment N [Aut omated message] The = Monocytes #) system which generated this result tra nsmitted reference range : <=0.8. The reference r leo was not used to int erpret this result as normal/abnormal . [facility] WestJsbyuwlSLWNHGXJWT6599-60-48 10:22:00 Test Item Value Reference Range Interpretation Comments Basophils # (test code 0.0 See_Comment N [Aut omated message] The = Basophils #) system which generated this result tra nsmitted reference range : <=0.2. The reference r leo was not used to int erpret this result as normal/abnormal . [facility] WestWpagplhFSLNVKUHJO6188-21-79 10:22:00 Test Item Value Reference Range Interpretation Comments MPV (test code = MPV) 11.0 7.4-10.4 H [facility] WestYzgzadpQNTRYQTMZW3615-60-00 10:22:00 Test Item Value Reference Range Interpretation Comments Platelet (test code = Platelet) 161 133-450 N [facility] WestTolchxdPOXUDZXGBF7971-61-11 10:22:00 Test Item Value Reference Range Interpretation Comments MCH (test code = MCH) 29.6 pg 27.0-31.0 N [facility] WestUbrkndxAXPVKYEIJH9025-97-09 10:22:00 Test Item Value Reference Range Interpretation Comments MCHC (test code = MCHC) 35.4 32.0-36.0 N [facility] WestNrecmwqRBLXWJNUNP9063-28-66 10:22:00 Test Item Value Reference Range Interpretation Comments RDW (test code = RDW) 14.1 11.5-14.5 N [facility] WestTihpxpkJSSXXKHCWT1105-41-85 10:22:00 Test Item Value Reference Range Interpretation Comments WBC (test code = WBC) 6.8 3.7-10.4 N [facility] WestOioajlmRWUPGXXJIA7025-98-78 10:22:00 Test Item Value Reference Range Interpretation Comments MCV (test code = MCV) 83.5 81.0-99.0 N [facility] WestPufxbtjCGETEKJHRY2337-90-82 10:22:00 Test Item Value Reference Range Interpretation Comments RBC (test code = RBC) 4.44 4.20-5.40 N [facility] WestFrxntvvFWOIQWJSZO8073-09-86 10:22:00 Test Item Value Reference Range Interpretation Comments Hgb (test code = Hgb) 13.1 12.0-16.0 N [facility] WestUnfoidzSDKAEBWEKL0517-16-78 10:22:00 Test Item Value Reference Range Interpretation Comments Hct (test code = Hct) 37.1 36.0-48.0 N [facility] GLUCOSE ANVORXU3857-21-07 02:20:00 Test Item Value Reference Range Interpretation Comments Comment1 (test code = Comment1) Riccoy RN/MD [facility] GLUCOSE DKIMNPG8144-24-44 02:20:00 Test Item Value Reference Range Interpretation Comments Gluc POC Lifscn (test code = Gluc POC 332 65-110 H Lifscn) [facility] HospitalFybtlixZJSZVEKCC4130-19-38 09:47:00 Test Item Value Reference Range Interpretation Comments Phosphorus (test code = Phosphorus) 2.5 2.5-4.5 N [facility] HospitalZueptioACXJXPEEJ4884-57-51 09:47:00 Test Item Value Reference Range Interpretation Comments Glucose Lvl (test code = Glucose Lvl) 201 [facility] HospitalQdmejjyCFRLIBWSR4467-66-48 09:47:00 Test Item Value Reference Range Interpretation Comments BUN (test code = BUN) 7 7-22 N [facility] HospitalYewdkqiFGBRKYTEU5985-83-60 09:47:00 Test Item Value Reference Range Interpretation Comments CO2 (test code = CO2) 19 24-32 L [facility] HospitalSqhvyjpMQBIQKJEO1368-75-32 09:47:00 Test Item Value Reference Range Interpretation Comments Creatinine Lvl (test code = Creatinine 0.3 0.5-1.4 L Lvl) [facility] HospitalKedcbksAKKQCISDF8451-72-59 09:47:00 Test Item Value Reference Range Interpretation Comments Sodium Lvl (test code = Sodium Lvl) 137 135-145 N [facility] HospitalKsakocnNOSRUBDCW0877-95-50 09:47:00 Test Item Value Reference Range Interpretation Comments Chloride Lvl (test code = Chloride Lvl) 103 95-109 N [facility] HospitalBodqvofYCXSUORDZ6364-27-03 09:47:00 Test Item Value Reference Range Interpretation Comments Potassium Lvl (test code = Potassium 3.6 3.5-5.1 N Lvl) [facility] HospitalMilcdjcBASEEUCPM1804-19-40 09:47:00 Test Item Value Reference Range Interpretation Comments Calcium Lvl (test code = Calcium Lvl) 7.9 8.5-10.5 L [facility] HospitalVpazrvxEXBTUDSGY7519-09-68 09:47:00 Test Item Value Reference Range Interpretation Comments AGAP (test code = AGAP) 18.6 10.0-20.0 N [facility] HospitalCzcmydvJJCQCCKCE8899-19-51 09:47:00 Test Item Value Reference Range Interpretation Comments Magnesium Lvl (test code = Magnesium 1.6 1.8-2.4 L Lvl) [facility] WestCnzlhswMLOVAQFOIT7474-32-92 09:47:00 Test Item Value Reference Range Interpretation Comments Basophils # (test code 0.0 See_Comment N [Aut omated message] The = Basophils #) system which generated this result tra nsmitted reference range : <=0.2. The reference r leo was not used to int erpret this result as normal/abnormal . [facility] WestLqyvyrsDFMJVWEUSW7097-51-30 09:47:00 Test Item Value Reference Range Interpretation Comments Eosinophils (test code = 0.4 See_Comment N [A utomated message] The Eosinophils) system which ge nerated this result tra nsmitted reference range : <=4.0. The reference r leo was not used to int erpret this result as normal/abnormal . [facility] WestFcrrbelMSMXNHCMCT4336-97-70 09:47:00 Test Item Value Reference Range Interpretation Comments Basophils (test code = 0.5 See_Comment N [Aut omated message] The Basophils) system which ge nerated this result tra nsmitted reference range : <=1.0. The reference r leo was not used to int erpret this result as normal/abnormal . [facility] WestOsqfzvwYWNGMMHGNE6990-36-62 09:47:00 Test Item Value Reference Range Interpretation Comments Segs-Bands # (test code = Segs-Bands #) 5.9 1.5-8.1 N [facility] WestWeklposBCWYVTZIZA9885-79-21 09:47:00 Test Item Value Reference Range Interpretation Comments Lymphocytes # (test code = Lymphocytes 1.2 1.0-5.5 N #) [facility] WestDkelkqfKHNAZDZJNO9620-23-54 09:47:00 Test Item Value Reference Range Interpretation Comments Monocytes # (test code 0.5 See_Comment N [Aut omated message] The = Monocytes #) system which generated this result tra nsmitted reference range : <=0.8. The reference r leo was not used to int erpret this result as normal/abnormal . [facility] WestWjvtudoNLTLXRUEIU3271-08-53 09:47:00 Test Item Value Reference Range Interpretation Comments Eosinophils # (test code 0.0 See_Comment N [A utomated message] The = Eosinophils #) system whic h generated this result tra nsmitted reference range : <=0.5. The reference r leo was not used to int erpret this result as normal/abnormal . [facility] WestWnynfgjKAHDTOJQZL7355-79-53 09:47:00 Test Item Value Reference Range Interpretation Comments Segs (test code = Segs) 76.9 45.0-75.0 H [facility] WestKdqhyljMTXZUNFNSB7333-05-99 09:47:00 Test Item Value Reference Range Interpretation Comments Lymphocytes (test code = Lymphocytes) 15.9 20.0-40.0 L [facility] WestAvlprfxMLPHOJCMWD7040-31-25 09:47:00 Test Item Value Reference Range Interpretation Comments Monocytes (test code = Monocytes) 6.3 2.0-12.0 N [facility] WestPpluzwuDBSLDXUVZE2991-88-81 09:47:00 Test Item Value Reference Range Interpretation Comments MCV (test code = MCV) 82.8 81.0-99.0 N [facility] WestHavexcxINFQNBOEMX2770-12-87 09:47:00 Test Item Value Reference Range Interpretation Comments Hct (test code = Hct) 39.7 36.0-48.0 N [facility] WestJibdvnfKOURPXPRZA9163-21-93 09:47:00 Test Item Value Reference Range Interpretation Comments MCH (test code = MCH) 29.1 pg 27.0-31.0 N [facility] WestAmfnmdyCJYHRCJXSG7193-23-37 09:47:00 Test Item Value Reference Range Interpretation Comments Hgb (test code = Hgb) 14.0 12.0-16.0 N [facility] WestKiospfxVTAHWNZQIX1911-36-58 09:47:00 Test Item Value Reference Range Interpretation Comments MCHC (test code = MCHC) 35.2 32.0-36.0 N [facility] WestFwalfoaZOBNZUUBQZ4839-50-36 09:47:00 Test Item Value Reference Range Interpretation Comments RDW (test code = RDW) 13.9 11.5-14.5 N [facility] WestVckvywwKOVTVYXOVI2051-91-29 09:47:00 Test Item Value Reference Range Interpretation Comments Platelet (test code = Platelet) 160 133-450 N [facility] WestXbmlapdBDFEAGDWKC2753-92-65 09:47:00 Test Item Value Reference Range Interpretation Comments MPV (test code = MPV) 11.9 7.4-10.4 H [facility] WestVvhwvmpBLCUKWFVNC1418-21-67 09:47:00 Test Item Value Reference Range Interpretation Comments WBC (test code = WBC) 7.7 3.7-10.4 N [facility] WestZgftsqwTTTVFKVAUY7086-02-90 09:47:00 Test Item Value Reference Range Interpretation Comments RBC (test code = RBC) 4.80 4.20-5.40 N [facility] HospitalWfsggnvVPMXKEPHL4535-58-52 10:28:00 Test Item Value Reference Range Interpretation Comments Phosphorus (test code = Phosphorus) 2.6 2.5-4.5 N [facility] HospitalKiepfreSQSLIPVHS8487-51-77 10:28:00 Test Item Value Reference Range Interpretation Comments Magnesium Lvl (test code = Magnesium 1.8 1.8-2.4 N Lvl) [facility] HospitalMvqlbsdADVAQTEAZ6576-19-32 10:28:00 Test Item Value Reference Range Interpretation Comments Potassium Lvl (test code = Potassium 3.7 3.5-5.1 N Lvl) [facility] HospitalPcazpnlIXYJBLVPP0357-26-26 10:28:00 Test Item Value Reference Range Interpretation Comments Sodium Lvl (test code = Sodium Lvl) 137 135-145 N [facility] HospitalUadedbdMIUTNUPDG2462-93-64 10:28:00 Test Item Value Reference Range Interpretation Comments Creatinine Lvl (test code = Creatinine 0.6 0.5-1.4 N Lvl) [facility] HospitalUgbdjrxUENQMEACR5839-64-28 10:28:00 Test Item Value Reference Range Interpretation Comments BUN (test code = BUN) 16 7-22 N [facility] HospitalNwxboegGVGCYQDVY2245-91-98 10:28:00 Test Item Value Reference Range Interpretation Comments Glucose Lvl (test code = Glucose Lvl) 200 [facility] HospitalPqpmhjvDQJGKLHYS1748-37-44 10:28:00 Test Item Value Reference Range Interpretation Comments Calcium Lvl (test code = Calcium Lvl) 8.3 8.5-10.5 L [facility] HospitalAkwojdeZXUJHYXXV6033-72-59 10:28:00 Test Item Value Reference Range Interpretation Comments AGAP (test code = AGAP) 19.7 10.0-20.0 N [facility] HospitalPeudeyfBDBCIZLFC7187-19-10 10:28:00 Test Item Value Reference Range Interpretation Comments Chloride Lvl (test code = Chloride Lvl) 99 95-109 N [facility] HospitalJddulocCLXYLSZFS9069-92-90 10:28:00 Test Item Value Reference Range Interpretation Comments CO2 (test code = CO2) 22 24-32 L [facility] WestUqitrykZUNEJJXYTL6925-11-49 10:28:00 Test Item Value Reference Range Interpretation Comments Platelet (test code = Platelet) 172 133-450 N [facility] WestTgagqhsAZVUUYPYGF3330-12-10 10:28:00 Test Item Value Reference Range Interpretation Comments MPV (test code = MPV) 12.0 7.4-10.4 H [facility] WestYnzcddrEXMLYYWUAW1165-00-06 10:28:00 Test Item Value Reference Range Interpretation Comments WBC (test code = WBC) 7.3 3.7-10.4 N [facility] WestRtitexqQXPUGNBHML6863-36-72 10:28:00 Test Item Value Reference Range Interpretation Comments RDW (test code = RDW) 14.6 11.5-14.5 H [facility] WestXqqtwbmYLMMTESRUP0637-60-07 10:28:00 Test Item Value Reference Range Interpretation Comments MCHC (test code = MCHC) 35.0 32.0-36.0 N [facility] WestEbqptnrQRVNRKPDKR7080-42-10 10:28:00 Test Item Value Reference Range Interpretation Comments RBC (test code = RBC) 4.54 4.20-5.40 N [facility] WestSayniatBCJDUKHORZ4700-22-63 10:28:00 Test Item Value Reference Range Interpretation Comments Hct (test code = Hct) 37.6 36.0-48.0 N [facility] WestOyfaygwTZZCJGGCAF1540-79-15 10:28:00 Test Item Value Reference Range Interpretation Comments MCV (test code = MCV) 82.9 81.0-99.0 N [facility] WestQpbcgzfTNGANKBVQT6527-04-37 10:28:00 Test Item Value Reference Range Interpretation Comments MCH (test code = MCH) 29.0 pg 27.0-31.0 N [facility] WestEpdghbaCASYNIKJAC0908-83-30 10:28:00 Test Item Value Reference Range Interpretation Comments Hgb (test code = Hgb) 13.2 12.0-16.0 N [facility] WestVkhjgayRMKWMPUWOU4204-86-62 10:28:00 Test Item Value Reference Range Interpretation Comments Elliptocyte (test code = Slight A Elliptocyte) *ABN*(08/21/2011 04:28:00) [facility] WestNcstvpgSZJYOLZWYS5687-14-04 10:28:00 Test Item Value Reference Range Interpretation Comments Polychrom (test code = Slight (08/21/2011 N Polychrom) 04:28:00) [facility] WestWlydjtfHYRVFJJJWQ4365-18-59 10:28:00 Test Item Value Reference Range Interpretation Comments Basophils # (test code 0.0 See_Comment N [Aut omated message] The = Basophils #) system which generated this result tra nsmitted reference range : <=0.2. The reference r leo was not used to int erpret this result as normal/abnormal . [facility] WestGupjtvjUTRYLYAPFJ6980-34-18 10:28:00 Test Item Value Reference Range Interpretation Comments Hypochrom (test code = Slight (08/21/2011 N Hypochrom) 04:28:00) [facility] WestMjwlectJPQYZLQZEQ8178-45-84 10:28:00 Test Item Value Reference Range Interpretation Comments Monocytes # (test code 0.6 See_Comment N [Aut omated message] The = Monocytes #) system which generated this result tra nsmitted reference range : <=0.8. The reference r leo was not used to int erpret this result as normal/abnormal . [facility] WestEaaosueKMLLVUAFCW3339-74-95 10:28:00 Test Item Value Reference Range Interpretation Comments Eosinophils # (test code 0.0 See_Comment N [A utomated message] The = Eosinophils #) system whic h generated this result tra nsmitted reference range : <=0.5. The reference r leo was not used to int erpret this result as normal/abnormal . [facility] WestHjfwgxxIIHFFSRNVQ4130-56-97 10:28:00 Test Item Value Reference Range Interpretation Comments Segs-Bands # (test code = Segs-Bands #) 5.3 1.5-8.1 N [facility] WestCiirewpRDRPVPHZEH5835-35-31 10:28:00 Test Item Value Reference Range Interpretation Comments Lymphocytes # (test code = Lymphocytes 1.3 1.0-5.5 N #) [facility] WestUpoiqgeKDJHHBUTNH1468-40-67 10:28:00 Test Item Value Reference Range Interpretation Comments Basophils (test code = 0.5 See_Comment N [Aut omated message] The Basophils) system which ge nerated this result tra nsmitted reference range : <=1.0. The reference r leo was not used to int erpret this result as normal/abnormal . [facility] WestEtkhzfiCOKCYQHKCB7335-25-05 10:28:00 Test Item Value Reference Range Interpretation Comments Monocytes (test code = Monocytes) 8.5 2.0-12.0 N [facility] WestNbtymutFLCHPFCCMR8485-77-78 10:28:00 Test Item Value Reference Range Interpretation Comments Eosinophils (test code = 0.3 See_Comment N [A utomated message] The Eosinophils) system which ge nerated this result tra nsmitted reference range : <=4.0. The reference r leo was not used to int erpret this result as normal/abnormal . [facility] WestVpobqaqTWVDGTFVQE2746-97-54 10:28:00 Test Item Value Reference Range Interpretation Comments Lymphocytes (test code = Lymphocytes) 17.3 20.0-40.0 L [facility] WestXppavyyZYSQKWVXEK9069-26-62 10:28:00 Test Item Value Reference Range Interpretation Comments Segs (test code = Segs) 73.4 45.0-75.0 N [facility] GLUCOSE IVSLASP8661-63-27 07:47:00 Test Item Value Reference Range Interpretation Comments Comment2 (test code = Comment2) Verify w/Lab [facility] HospitalPrmphnbWZKZSMQRL6543-72-18 21:58:00 Test Item Value Reference Range Interpretation Comments S Preg (test code = S Negative (08/19/2011 N Preg) 15:58:00) [facility] HospitalHwtvwhsTCMSMEDFJ2276-49-75 21:58:00 Test Item Value Reference Range Interpretation Comments Lipase Lvl (test code = Lipase Lvl) 169 73-393 N [facility] HospitalEanbwfwDIATDMJAX2733-86-77 21:58:00 Test Item Value Reference Range Interpretation Comments ALT (test code = ALT) 54 See_Comment N [Auto mated message] The system which ge nerated this result transmit rohit reference range : <=65. The reference range was not used to interpr et this result as reji l/abnormal. [facility] HospitalXpcqnkyVGYZLNGCV4992-84-91 21:58:00 Test Item Value Reference Range Interpretation Comments Alk Phos (test code = Alk Phos) 110 39-136 N [facility] HospitalNekjgylHOIVTDLXZ8555-00-75 21:58:00 Test Item Value Reference Range Interpretation Comments Bili Direct (test code 0.1 See_Comment N [Aut omated message] The = Bili Direct) system which generated this result tra nsmitted reference range : <=0.3. The reference r leo was not used to int erpret this result as reji l/abnormal. [facility] HospitalUfbinlgJGJXOMQGV8424-12-42 21:58:00 Test Item Value Reference Range Interpretation Comments Bili Total (test code = Bili Total) 0.9 0.2-1.3 N [facility] HospitalGmxqrxyWBQVKRPLW2238-29-64 21:58:00 Test Item Value Reference Range Interpretation Comments Albumin Lvl (test code = Albumin Lvl) 4.4 3.5-5.0 N [facility] HospitalDpcaotyPIZQDFVCL9491-86-37 21:58:00 Test Item Value Reference Range Interpretation Comments Total Protein (test code = Total 8.8 6.4-8.4 H Protein) [facility] HospitalVyvdppgNTUIUIKIE9248-73-17 21:58:00 Test Item Value Reference Range Interpretation Comments Bili Indirect (test 0.8 See_Comment N [Automa rohit message] The code = Bili Indirect) system which generated this result tra nsmitted reference range : <=1.0. The reference r leo was not used to int erpret this result as normal/abnormal . [facility] HospitalKwbvcmoAZLOXIENT2761-08-79 21:58:00 Test Item Value Reference Range Interpretation Comments AST (test code = AST) 36 See_Comment N [Auto mated message] The system which ge nerated this result transmit rohit reference range : <=37. The reference range was not used to interpr et this result as reji l/abnormal. [facility] HospitalVkthwpxKSBXVXWVU9889-17-21 21:58:00 Test Item Value Reference Range Interpretation Comments Globulin (test code = Globulin) 4.4 2.0-4.0 H [facility] CenterHqylekuJCVNPBCNJ0561-72-24 21:58:00 Test Item Value Reference Range Interpretation Comments A/G Ratio (test code = A/G Ratio) 1.0 0.7-1.6 N [facility] CenterIhsibtzONIQQESOIB6786-90-03 21:58:00 Test Item Value Reference Range Interpretation Comments UA Bacteria (test code Occasional /HPF N = UA Bacteria) (08/19/2011 15:58:00) [facility] CenterZwchjydLFWZUKKQJI4927-75-05 21:58:00 Test Item Value Reference Range Interpretation Comments UA RBC (test 3-5 /HPF See_Comment A [Automated mes pastor] code = UA RBC) *ABN*(08/19/2011 The syste m which 15:58:00) generated this result transmitted ref erence range: <=2. The reference range was not used to int erpret this result as normal/abnormal . [facility]LmcutkgDVQYZLOYHW8507-06-69 21:58:00 Test Item Value Reference Range Interpretation Comments UA WBC (test code = 3 See_Comment [Automa rohit message] The UA WBC) system which ge nerated this result transmit rohit reference range : <=5. The reference range was not used to interpr et this result as reji l/abnormal. [facility] CenterSojitvfLLCNAAAWQK2419-73-29 21:58:00 Test Item Value Reference Range Interpretation Comments UA Mucus (test code = Few /LPF (08/19/2011 N UA Mucus) 15:58:00) [facility] CenterGncrbphVVVGUGIBXQ5238-28-27 21:58:00 Test Item Value Reference Range Interpretation Comments UA Amorph Destiny (test Occasional /HPF A code = UA Amorph *ABN*(08/19/2011 Destiny) 15:58:00) [facility] CenterZkxudtrNDUIGHRJZC5102-21-10 21:58:00 Test Item Value Reference Range Interpretation Comments UA Urobilinogen (test code = UA 0.2 0.1-1.0 N Urobilinogen) [facility] CenterLcktcgyRBOQWGLDDW8451-32-63 21:58:00 Test Item Value Reference Range Interpretation Comments UA Sq Epi (test code = Rare /LPF (08/19/2011 N UA Sq Epi) 15:58:00) [facility] CenterHetadriAPAMUEMCNO5982-55-41 21:58:00 Test Item Value Reference Range Interpretation Comments Micro? (test code = Performed (08/19/2011 N Micro?) 15:58:00) [facility] HospitalAdyijbhAXXDYEXGAF7052-03-77 21:58:00 Test Item Value Reference Range Interpretation Comments UA Leuk Est (test Negative (08/19/2011 N code = UA Leuk Est) 15:58:00) [facility] HospitalItjdtwnBGYGSXQFHH8060-82-42 21:58:00 Test Item Value Reference Range Interpretation Comments UA Nitrite (test code Negative (08/19/2011 N = UA Nitrite) 15:58:00) [facility] HospitalVxwjcuhUIOCFYQOPR1608-64-63 21:58:00 Test Item Value Reference Range Interpretation Comments UA pH (test code = UA pH) 5.5 1 5.0-8.0 N [facility] HospitalIvxelwqYKGZBTZFVM9609-29-90 21:58:00 Test Item Value Reference Range Interpretation Comments UA Blood (test code = Trace *ABN*(08/19/2011 A UA Blood) 15:58:00) [facility] HospitalVnfwhuvVVZHOGWDQC8483-79-16 21:58:00 Test Item Value Reference Range Interpretation Comments UA Bili (test code = Negative (08/19/2011 N UA Bili) 15:58:00) [facility] HospitalNcvwcctHBZTTYAMTM6055-51-30 21:58:00 Test Item Value Reference Range Interpretation Comments UA Ketones (test code = 80 mg/dL A UA Ketones) *ABN*(08/19/2011 15:58:00) [facility] HospitalHjkzcxnVVWAOFKPME0807-91-65 21:58:00 Test Item Value Reference Range Interpretation Comments UA Glucose (test code = >=1000 mg/dL A UA Glucose) *ABN*(08/19/2011 15:58:00) [facility] HospitalPqvdaacGRXCVHTBAX9118-44-08 21:58:00 Test Item Value Reference Range Interpretation Comments UA Protein (test code Negative (08/19/2011 N = UA Protein) 15:58:00) [facility] HospitalScwfavbLTFGRZZUMY0037-49-47 21:58:00 Test Item Value Reference Range Interpretation Comments UA Turbidity (test code Slight Cloudy N = UA Turbidity) (08/19/2011 15:58:00) [facility] HospitalXxvwgvyZANFREBACU6602-98-05 21:58:00 Test Item Value Reference Range Interpretation Comments UA Spec Grav (test code = UA Spec 1.025 1 Grav) [facility] [id number] 21:58:00 Test Item Value Reference Range Interpretation Comments UA Color (test code = Yellow (08/19/2011 N UA Color) 15:58:00) [id number] 21:13:00 Test Item Value Reference Range Interpretation Comments AST (test code = AST) 23 See_Comment N [Auto mated message] The system which ge nerated this result transmit rohit reference range : <=37. The reference range was not used to interpr et this result as reji l/abnormal. [facility] Hospital[id number] 21:13:00 Test Item Value Reference Range Interpretation Comments Bili Total (test code = Bili Total) 1.0 0.2-1.3 N [facility] [id number] 21:13:00 Test Item Value Reference Range Interpretation Comments Alk Phos (test code = Alk Phos) 115 39-136 N [facility] Hospital[id number] 21:13:00 Test Item Value Reference Range Interpretation Comments ALT (test code = ALT) 56 See_Comment N [Auto mated message] The system which ge nerated this result transmit rohit reference range : <=65. The reference range was not used to interpr et this result as reji l/abnormal. [facility] HospitalZwcvsqsEPISEJECH9380-93-06 21:13:00 Test Item Value Reference Range Interpretation Comments Total Protein (test code = Total 9.0 6.4-8.4 H Protein) [facility] Hospi[id number] 21:13:00 Test Item Value Reference Range Interpretation Comments Albumin Lvl (test code = Albumin Lvl) 4.8 3.5-5.0 N [facility] HospitalEkurwlcFJPDDUTWS5272-28-81 21:13:00 Test Item Value Reference Range Interpretation Comments Globulin (test code = Globulin) 4.2 2.0-4.0 H [facility] [id number] 21:13:00 Test Item Value Reference Range Interpretation Comments A/G Ratio (test code = A/G Ratio) 1.1 0.7-1.6 N [facility] HospitalSgbutkcMNYIMORME9506-31-58 21:13:00 Test Item Value Reference Range Interpretation Comments B/C Ratio (test code = B/C Ratio) 30 6-25 H [facility] WestElappnaEIAHEUOWGJ5092-86-02 21:13:00 Test Item Value Reference Range Interpretation Comments RBC Morph (test code = Normal (08/19/2011 N RBC Morph) 15:13:00) [facility] We[id number] 21:13:00 Test Item Value Reference Range Interpretation Comments Large Plt (test code = Slight *ABN*(08/19/2011 A Large Plt) 15:13:00) [facility] We[id number] 21:13:00 Test Item Value Reference Range Interpretation Comments Atypical Lymphs (test code = Atypical 0.0 N Lymphs) [facility] WestLjygybqWGIUECQMHH0534-51-10 21:13:00 Test Item Value Reference Range Interpretation Comments Bands (test code = 0.0 See_Comment N [Automat ed message] The Bands) system which ge nerated this result transmit rohit reference range : <=11.0. The reference r leo was not used to interpr et this result as reji l/abnormal. [facility] Hospi[id number] 21:10:00 Test Item Value Reference Range Interpretation Comments O2 Sat Roberth (test code = O2 Sat Roberth) 74.0 40.0-70.0 H [facility] Hospital[id number] 21:10:00 Test Item Value Reference Range Interpretation Comments Temp Roberth (test code = Temp Roberth) 37.0 [facility] HospitalOikzpqbGZZXCEKZW0826-84-20 21:10:00 Test Item Value Reference Range Interpretation Comments pO2 Roberth (test code = pO2 Roberth) 42 20-49 N [facility] HospitalXjzditbFBKFLBDAC1139-30-31 21:10:00 Test Item Value Reference Range Interpretation Comments HCO3 Roberth (test code = HCO3 Roberth) 17.3 22.0-26.0 L [facility] HospitalZywnnebQTWWDCRPJ5572-16-47 21:10:00 Test Item Value Reference Range Interpretation Comments pH Roberth (test code = pH Roberth) 7.34 7.28-7.42 N [facility] HospitalWpjjtjrHMHIQZEEW1875-31-94 21:10:00 Test Item Value Reference Range Interpretation Comments pCO2 Roberth (test code = pCO2 Roberth) 32 38-52 L [facility] HospitalJdjuayyCCCXITTDG1722-05-41 21:10:00 Test Item Value Reference Range Interpretation Comments BE Roberth (test code = -7 See_Comment L [Automa rohit message] The BE Roberth) system which ge nerated this result transmit rohit reference range : <=2. The reference range was not used to interpr et this result as reji l/abnormal. [facility] Cent[id number] 20:34:00 Test Item Value Reference Range Interpretation Comments CDC-HIV 1/2 Ab (test Negative *NA*(08/19/2011 code = CDC-HIV 1/2 14:34:00) Ab) [facility]
--- NOTE | 2022-06-15 18:37 | RAD REPORT ---
EXAM DESCRIPTION: CTStone Protocol - 06/15/2022 6:01 pm CLINICAL HISTORY: low back pain radiating to lower abdomen pain COMPARISON: Abdomen Pelvis Wo Contrast dated 03/24/2022; Abdomen Pelvis Wo Contrast dated 12/06/19; Abdomen Pelvis Wo Contrast dated 08/08/2021; Abdomen Pelvis Wo Contrast dated 06/30/2021 TECHNIQUE: CT of the abdomen and pelvis was performed. All CT scans are performed using dose optimization technique as appropriate and may include automated exposure control or mA/KV adjustment according to patient size. FINDINGS: Lower chest: Mild circumferential thickened distal esophagus may reflect esophagitis. Oscar nary artery calcifications. Liver: No acute abnormality or suspicious lesions. Biliary: Cholelithiasis Stomach: No significant focal abnormality. Duodenum: No significant focal abnormality. Pancreas: No significant abnormality. Spleen: No significant abnormality. Adrenal: No suspicious lesions. Kidney/ureter: No hydronephrosis. No renal calculi. Atrophic kidneys. Retroperitoneum: No retroperitoneal adenopathy. Vascular: No aneurysm. Right SFA stent. Bowel: No significant focal abnormality. Normal appendix. Peritoneum: No ascites or free air. Bladder: Grossly unremarkable. Reproductive: No adnexal masses. Bones: No acute fracture. Other: n/a IMPRESSION: No acute intra-abdominal or pelvic finding. Normal appendix .
[2022-06-15] MEDS ORDERED: ACETAMINOPHEN 325 MG TABLET ONE (20:28)
[2022-06-15] MEDS ORDERED: ONDANSETRON 4 MG (ODT) TAB ONE (20:29)
[2022-06-15] MEDS ORDERED: LIDOCAINE 4% PATCH ONE (20:29)
[2022-06-15 20:43] LABS: Urine Blood Trace-intact (Negative); Urine Glucose Negative (Negative); Urine Protein 3+ (Negative); Urine pH 8.5 (5.0-7.0)
[2022-06-15 20:53] LABS: Absolute Lymphocytes (CBC) 0.7 K/uL (0.7-4.9); Hematocrit 27.7 % (36.0-45.0); Lymphocytes % 18.3 % (15.3-44.8); MCV 89.1 fL (80-100); MPV 9.9 fL (7.6-11.3); RBC Red Blood Cell Count 3.11 M/uL (3.86-4.86)
[2022-06-15 20:55] LABS: Urine Bacteria <20 /HPF (<20); Urine RBC <5 /HPF (None Seen)
[2022-06-15 21:12] LABS: Albumin 3.5 g/dL (3.4-5.0); Bilirubin Total 0.8 mg/dL (0.2-1.0); Potassium 4.3 mmol/L (3.5-5.1); Protein, Total 7.2 g/dL (6.4-8.2)
[2022-06-15] MEDS ORDERED: DIAZEPAM 10 MG/2 ML INJ SYRINGE ONE (21:34)
[2022-06-15] MEDS ORDERED: cloNIDine HCL 0.1 MG TAB ONE (21:34)
[2022-06-15] MEDS ORDERED: HYDRALAZINE HCL 20 MG/ML VIAL ONE (22:28)
--- NOTE | 2022-06-15 23:22 | ER ---
Nurse's Notes [facility] Name: Cathi Zaldivar Age: 41 yrs Sex: Female : 1980 Arrival Date: 06/15/2022 Time: 15:54 Bed 7 Private MD: Diagnosis: Low back pain;Hypertensive heart and chronic kidney disease with heart failure and with stage 5 chronic kidney disease, or end stage renal disease Presentation: 06/15 16:44 Chief complaint: Patient states: GIORGIO flank pain, lower abdominal pain. Coronavirus ld1 screen: At this time, the client does not indicate any symptoms associated with coronavirus-19. Ebola Screen: No symptoms or risks identified at this time. Initial Sepsis Screen: Does the patient meet any 2 criteria? No. Patient's initial sepsis screen is negative. Does the patient have a suspected source of infection? No. Patient's initial sepsis screen is negative. Risk Assessment: Do you want to hurt yourself or someone else? Patient reports no desire to harm self or others. Onset of symptoms was June 15, 2022. 16:44 Method Of Arrival: Wheelchair ld1 16:44 Acuity: JESSICA 3 ld1 Triage Assessment: 16:49 General: Appears in no apparent distress. uncomfortable, Behavior is calm, cooperative, ld1 appropriate for age. Pain: Complains of pain in low back area, right lower quadrant and left lower quadrant Pain does not radiate. Pain currently is 10 out of 10 on a pain scale. Quality of pain is described as throbbing, Pain began suddenly. EENT: No signs and/or symptoms were reported regarding the EENT system. Neuro: Level of Consciousness is awake, alert, obeys commands, Oriented to person, place, time, situation. Cardiovascular: Capillary refill < 3 seconds Patient's skin is warm and dry. Respiratory: Airway is patent Respiratory effort is even, unlabored. GI: Abdomen is round non-distended. : No signs and/or symptoms were reported regarding the genitourinary system. Derm: No signs and/or symptoms reported regarding the dermatologic system. Historical: - Allergies: 16:45 ambien; ld1 16:45 Codeine; ld1 16:45 GUAIFENESIN; ld1 16:45 Lisinopril; ld1 16:45 Morphine; ld1 16:45 Nitrofurantoin Macrocrystal; ld1 16:45 PENICILLINS; ld1 16:45 Prolixin; ld1 16:45 zolpidem tartrate; ld1 - PMHx: 16:45 "mental problems"; cardiac arrest; CHF; chronic kidney disease; cyclic vomiting ld1 syndrome; Diabetes - NIDDM; Dialysis; m-w-f; ENCEPHALOPATHY; Gastroparesis; Hypertension; ibs; liver failure; PERIPHERAL NEUROPATHY; pseudo aneurysm R groin; Seizures; - PSHx: 16:45 section; dialysis catheter R chest wall; eye removed; ld1 - Immunization history:: Adult Immunizations up to date, Client reports receiving the 2nd dose of the Covid vaccine. - Social history:: Smoking status: Patient reports the use of cigarette tobacco products, smokes one-half pack cigarettes per day, Patient/guardian denies using alcohol. Screenin:45 [facility] ED Fall Risk Assessment (Adult) History of falling in the last 3 months, jb4 including since admission No falls in past 3 months (0 pts) Confusion or Disorientation No (0 pts) Intoxicated or Sedated No (0 pts) Impaired Gait No (0 pts) Mobility Assist Device Used Yes (1 pt) Altered Elimination No (0 pt) Score/Fall Risk Level 0 - 2 = Low Risk Oriented to surroundings, Maintained a safe environment. Abuse screen: Denies threats or abuse. Nutritional screening: No deficits noted. Tuberculosis screening: No symptoms or risk factors identified. Assessment: 19:45 General: Appears in no apparent distress. uncomfortable, Behavior is calm, cooperative, jb4 appropriate for age. Pain: Complains of pain in low back area Pain radiates to suprapubic area Pain currently is 8 out of 10 on a pain scale. Neuro: Level of Consciousness is awake, alert, obeys commands, Oriented to person, place, time, situation. Cardiovascular: Patient's skin is warm and dry. Respiratory: Airway is patent Respiratory effort is even, unlabored, Respiratory pattern is regular, symmetrical. GI: : No signs and/or symptoms were reported regarding the genitourinary system. EENT: No signs and/or symptoms were reported regarding the EENT system. Derm: Skin is intact, Skin is pink, warm \\T\\ dry. Musculoskeletal: Circulation, motion, and sensation intact. Range of motion: intact in all extremities. 21:00 Reassessment: Patient appears in no apparent distress at this time. Patient and/or jb4 family updated on plan of care and expected duration. Pain level reassessed. Patient is alert, oriented x 3, equal unlabored respirations, skin warm/dry/pink. 22:00 Reassessment: Patient appears in no apparent distress at this time. Patient and/or jb4 family updated on plan of care and expected duration. Pain level reassessed. Patient is alert, oriented x 3, equal unlabored respirations, skin warm/dry/pink. Pt continues to report lower back pain, provider notified, no new orders at this time. 22:40 Reassessment: Patient appears in no apparent distress at this time. Patient and/or jb4 family updated on plan of care and expected duration. Pain level reassessed. Patient is alert, oriented x 3, equal unlabored respirations, skin warm/dry/pink. 23:09 Reassessment: Patient appears in no apparent distress at this time. Patient and/or jb4 family updated on plan of care and expected duration. Pain level reassessed. Patient is alert, oriented x 3, equal unlabored respirations, skin warm/dry/pink. 23:40 Reassessment: Patient appears in no apparent distress at this time. Patient and/or jb4 family updated on plan of care and expected duration. Pain level reassessed. Patient is alert, oriented x 3, equal unlabored respirations, skin warm/dry/pink. Patient states feeling better. Vital Signs: 16:49 BP 248 / 96; Pulse 76; Resp 18; Temp 98.6(TE); Pulse Ox 100% on R/A; Weight 80.74 kg; ld1 Height 5 ft. 1 in. (154.94 cm); Pain 10/10; 21:30 BP 215 / 98; Pulse 84; Resp 16; Pulse Ox 97% on R/A; jb4 22:23 BP 219 / 88; Pulse 87; Resp 19; Pulse Ox 98% on 2 lpm NC; jb4 23:09 BP 166 / 65; Pulse 78; Resp 16; Pulse Ox 95% on R/A; jb4 16:49 Body Mass Index 33.63 (80.74 kg, 154.94 cm) ld1 22:23 desats to 88 when sleeping after valium administration. jb4 ED Course: 15:54 Patient arrived in ED. mr 16:12 Luis Ruvalcaba PA is PHCP. cp 16:12 Luis Sandra MD is Attending Physician. cp 16:45 Triage completed. ld1 16:49 Arm band placed on right wrist. ld1 18:02 CT Stone Protocol In Process Unspecified. EDMS 19:45 Silverio Macias, RN is Primary Nurse. jb4 19:45 Patient has correct armband on for positive identification. Placed in gown. Bed in low jb4 position. Call light in reach. Side rails up X 1. Client placed on continuous cardiac and pulse oximetry monitoring. NIBP monitoring applied. 20:29 Inserted saline lock: 22 gauge in right ,using aseptic technique. 22 diffusics inserted ds4 in right breast. 23:41 No provider procedures requiring assistance completed. IV discontinued, intact, jb4 bleeding controlled, No redness/swelling at site. Pressure dressing applied. Administered Medications: 20:34 Drug: Zofran (Ondansetron) 4 mg Route: PO; jb4 21:30 Follow up: Response: No adverse reaction; Marked relief of symptoms; Nausea is decreasedpf1 20:34 Drug: Lidoderm Patch 5 % (700 mg/patch) 1 patches Route: Topical; Site: affected area; jb4 20:50 Drug: Tylenol 650 mg Route: PO; jb4 21:50 Follow up: Response: No adverse reaction; Pain is unchanged, physician notified pf1 21:01 Not Given (Physician Discretion): Diazepam 5 mg IM once cp 21:34 Drug: Diazepam 5 mg {Note: right breast.} Route: IVP; Site: Other; jb4 22:30 Follow up: Response: No adverse reaction; Pain is unchanged, physician notified; RASS: pf1 Alert and Calm (0) 21:35 Drug: cloNIDine 0.1 mg Route: PO; jb4 22:00 Follow up: Response: Marked relief of symptoms; Blood pressure is lowered pf1 22:29 Drug: hydrALAZINE 10 mg {Note: Right chest.} Route: IVP; Site: Other; jb4 23:16 Follow up: Response: Marked relief of symptoms pf1 Outcome: 23:22 Discharge ordered by . cp 23:41 Discharged to home ambulatory. jb4 23:41 Condition: stable 23:41 Discharge instructions given to patient, Instructed on discharge instructions, follow up and referral plans. medication usage, Demonstrated understanding of instructions, follow-up care, medications, Prescriptions given X 2. 23:41 Patient left the ED. jb4 Signatures: Dispatcher [employer] EDMA Adela ReyesMohit ds4 Luis Ruvalcaba PA PA cp Bryson, James RN RN jb4 Sarah Clark RN RN ld1 Jessica wilkins RN RN pf1
--- NOTE | 2022-06-15 23:23 | EDPHYS ---
Physician Documentation [facility] Name: Cathi Zaldivar Age: 41 yrs Sex: Female : 1980 Arrival Date: 06/15/2022 Time: 15:54 Bed 7 Private MD: DWIGHT Physician Luis Sandra HPI: 06/15 17:40 This 41 yrs old Female presents to ER via Wheelchair with complaints of Back cp Pain. 17:40 The patient presents with pain that is acute, with no known mechanism of injury. The cp symptoms are located in the low back. Onset: The symptoms/episode began/occurred today, after completing dialysis. The pain radiates to the lower abdomen. Associated signs and symptoms: Pertinent positives: dysuria, vomiting, diarrhea. 17:40 Severity of symptoms: in the emergency department the symptoms are unchanged, despite cp home interventions. Historical: - Allergies: 16:45 ambien; ld1 16:45 Codeine; ld1 16:45 GUAIFENESIN; ld1 16:45 Lisinopril; ld1 16:45 Morphine; ld1 16:45 Nitrofurantoin Macrocrystal; ld1 16:45 PENICILLINS; ld1 16:45 Prolixin; ld1 16:45 zolpidem tartrate; ld1 - PMHx: 16:45 "mental problems"; cardiac arrest; CHF; chronic kidney disease; cyclic vomiting ld1 syndrome; Diabetes - NIDDM; Dialysis; m-w-f; ENCEPHALOPATHY; Gastroparesis; Hypertension; ibs; liver failure; PERIPHERAL NEUROPATHY; pseudo aneurysm R groin; Seizures; - PSHx: 16:45 section; dialysis catheter R chest wall; eye removed; ld1 - Immunization history:: Adult Immunizations up to date, Client reports receiving the 2nd dose of the Covid vaccine. - Social history:: Smoking status: Patient reports the use of cigarette tobacco products, smokes one-half pack cigarettes per day, Patient/guardian denies using alcohol. ROS: 17:45 Constitutional: Negative for body aches, chills, fever, poor PO intake. cp 17:45 Cardiovascular: Negative for chest pain, palpitations. cp 17:45 Respiratory: Negative for cough, shortness of breath, wheezing. 17:45 Eyes: Negative for injury, pain, redness, and discharge. cp 17:45 ENT: Negative for drainage from ear(s), ear pain, sore throat, difficulty swallowing, difficulty handling secretions. 17:45 Back: Positive for pain at rest, pain with movement, of the low back area, Negative for injury or acute deformity. 17:45 Neuro: Negative for altered mental status, dizziness, headache, numbness, weakness. 17:45 Abdomen/GI: Positive for abdominal pain, nausea, vomiting, of the suprapubic area, cp right lower quadrant and left lower quadrant. 17:45 All other systems are negative. cp Exam: 17:50 Constitutional: The patient appears in no acute distress, alert, awake, non-toxic, well cp developed, well nourished. 17:50 Head/Face: Normocephalic, atraumatic. cp 17:50 Eyes: Periorbital structures: appear normal, Conjunctiva: normal, no exudate, no injection, Sclera: no appreciated abnormality, Lids and lashes: appear normal, bilaterally. 17:50 ENT: External ear(s): are unremarkable, Nose: is normal, Mouth: Lips: moist, Oral mucosa: moist, Posterior pharynx: Airway: normal. 17:50 Chest/axilla: Inspection: normal. 17:50 Cardiovascular: Rate: normal, Rhythm: regular. 17:50 Respiratory: the patient does not display signs of respiratory distress, Respirations: normal, no use of accessory muscles, no retractions, labored breathing, is not present, Breath sounds: are clear throughout, no decreased breath sounds, no stridor, no wheezing. 17:50 Abdomen/GI: Inspection: abdomen appears normal, Bowel sounds: active, all quadrants, Palpation: soft, in all quadrants, mild abdominal tenderness, in the suprapubic area, right lower quadrant and left lower quadrant, rebound tenderness, is not appreciated, involuntary guarding, is not appreciated. 17:50 Back: pain, that is moderate, of the low back area. 17:50 Skin: no rash present. 17:50 Neuro: Orientation: to person, place \\T\\ time. Mentation: is normal, Motor: moves all fours, strength is normal, Sensation: no obvious gross deficits. Vital Signs: 16:49 BP 248 / 96; Pulse 76; Resp 18; Temp 98.6(TE); Pulse Ox 100% on R/A; Weight 80.74 kg; ld1 Height 5 ft. 1 in. (154.94 cm); Pain 10/10; 21:30 BP 215 / 98; Pulse 84; Resp 16; Pulse Ox 97% on R/A; jb4 22:23 BP 219 / 88; Pulse 87; Resp 19; Pulse Ox 98% on 2 lpm NC; jb4 23:09 BP 166 / 65; Pulse 78; Resp 16; Pulse Ox 95% on R/A; jb4 16:49 Body Mass Index 33.63 (80.74 kg, 154.94 cm) ld1 22:23 desats to 88 when sleeping after valium administration. jb4 MDM: 17:20 Patient medically screened. cp 18:00 Differential diagnosis: Pyelonephritis Ureterolithiasis UTI, sciatica. cp 23:22 Data reviewed: vital signs, nurses notes, lab test result(s), radiologic studies, CT cp scan. 23:22 Counseling: I had a detailed discussion with the patient and/or guardian regarding: the cp historical points, exam findings, and any diagnostic results supporting the discharge/admit diagnosis, lab results, radiology results, to return to the emergency department if symptoms worsen or persist or if there are any questions or concerns that arise at home. Response to treatment: the patient's symptoms have mildly improved after treatment, and as a result, I will discharge patient. ED course: VSS. No vomiting observed while monitoring patient in ED. Non-narcotic meds used for pain. Will discharge to home for continued monitoring. 06/15 17:44 Order name: CBC with Diff; Complete Time: 21:04 cp 06/15 21:54 Interpretation: Normal except: WBC 3.80; RBC 3.11; HGB 9.5; HCT 27.7; PLT 108; RDW cp 18.0; EOSINOPHIL % 6.7; BASO% 3.0. 06/15 17:44 Order name: CMP; Complete Time: 21:53 cp 06/15 21:53 Interpretation: Normal except: K 4.3; BUN 24; CRE 5.43; GFR 10; CA 9.0; GLOB 3.7; A/G cp 0.9. 06/15 17:44 Order name: Lipase; Complete Time: 21:53 cp 06/15 17:44 Order name: Urine Microscopic Only; Complete Time: 21:00 cp 06/15 20:43 Order name: Urine Dipstick-Ancillary; Complete Time: 21:00 EDMS 06/15 21:00 Interpretation: Normal except: UKET Trace; UBLD Trace-intact; UPH 8.5; UPROT 3+. cp 06/15 21:03 Order name: Urine --Ancillary (enter results); Complete Time: 21:53 mw2 06/15 17:44 Order name: CT Stone Protocol; Complete Time: 19:10 cp 06/15 19:11 Interpretation: Report reviewed. cp 06/15 17:44 Order name: IV Saline Lock; Complete Time: 20:30 cp 06/15 17:44 Order name: Labs collected and sent; Complete Time: 20:30 cp 06/15 17:44 Order name: Urine Dipstick-Ancillary (obtain specimen); Complete Time: 20:45 cp 06/15 17:44 Order name: Urine Test (obtain specimen); Complete Time: 20:45 cp 06/15 22:06 Order name: PO challenge; Complete Time: 22:24 cp Administered Medications: 20:34 Drug: Zofran (Ondansetron) 4 mg Route: PO; jb4 21:30 Follow up: Response: No adverse reaction; Marked relief of symptoms; Nausea is decreasedpf1 20:34 Drug: Lidoderm Patch 5 % (700 mg/patch) 1 patches Route: Topical; Site: affected area; jb4 20:50 Drug: Tylenol 650 mg Route: PO; jb4 21:50 Follow up: Response: No adverse reaction; Pain is unchanged, physician notified pf1 21:01 Not Given (Physician Discretion): Diazepam 5 mg IM once cp 21:34 Drug: Diazepam 5 mg {Note: right breast.} Route: IVP; Site: Other; jb4 22:30 Follow up: Response: No adverse reaction; Pain is unchanged, physician notified; RASS: pf1 Alert and Calm (0) 21:35 Drug: cloNIDine 0.1 mg Route: PO; jb4 22:00 Follow up: Response: Marked relief of symptoms; Blood pressure is lowered pf1 22:29 Drug: hydrALAZINE 10 mg {Note: Right chest.} Route: IVP; Site: Other; jb4 23:16 Follow up: Response: Marked relief of symptoms pf1 Disposition Summary: 06/15/22 23:22 Discharge Ordered Location: Home cp Problem: new cp Symptoms: have improved cp Condition: Stable cp Diagnosis - Low back pain cp - Hypertensive heart and chronic kidney disease with heart failure and with stage 5 cp chronic kidney disease, or end stage renal disease Followup: cp - With: Private Physician - When: 1 - 2 days - Reason: Recheck today's complaints Discharge Instructions: - Discharge Summary Sheet cp - Acute Back Pain, Adult cp - Hypertension, Adult cp - Heat Therapy cp - Back Exercises cp Forms: - Medication Reconciliation Form cp - Thank You Letter cp - Antibiotic Education cp - Prescription Opioid Use cp Prescriptions: - Lidoderm 5 % Topical adhesive patch,medicated - apply 1 patch by TOPICAL route once daily As needed; 10 patch; Refills: 0, cp Product Selection Permitted - Cyclobenzaprine 10 mg Oral Tablet - take 1 tablet by ORAL route every 8 hours As needed; 20 tablet; Refills: 0, cp Product Selection Permitted Signatures: Dispatcher [employer] EDOsiel Robin, [employer] BUILDING [employer]NAGER-Cla1 Luis Ruvalcaba PA PA cp Silverio Macias RN RN jb4 Sarah Clark RN RN ld1 Jessica wilkins RN pf1 Corrections: (The following items were deleted from the chart) 06/16 23:12 06/15 17:45 All other systems are negative, cp cp
[2022-06-15 23:52] VITALS: TEMP 98.6
[2022-06-16 00:16] VITALS: BP 166/65; O2SAT 95
== END 2022-06-15 23:41 | disposition home or self-care (01) ==
LOC: ER 15:49
DX: M54.50 Low back pain, unspecified (principal); E11.22 Type 2 diabetes mellitus with diabetic chronic kidney disease; I13.2 Hypertensive heart and chronic kidney disease with heart failure and with stage 5 chronic kidney disease, or end stage renal disease; I50.9 Heart failure, unspecified; N18.6 End stage renal disease; Z99.2 Dependence on renal dialysis; F17.210 Nicotine dependence, cigarettes, uncomplicated; Z88.0 Allergy status to penicillin; Z88.5 Allergy status to narcotic agent; Z88.8 Allergy status to other drugs, medicaments and biological substances
CPT/HCPCS: 85025; 36415; 81025; 83690; 80053; 76377; 74176; J0360; Q0162; J3360; J2001; 81003; 81015; 96374; 96375; 99284

== ENCOUNTER 2022-07-23 09:30 | Emergency (ER) | payer MEDICARE, OTHER ==
--- OUTSIDE RECORDS SUMMARY | 2022-07-23 10:01 | XMS REPORT | Continuity of Care Document ---
:1980 Author Organization [facility] t Address [address] [place] [address] Care Team Providers Name Role Phone SHARPLESS Primary Care Physician Unavailable Nodal_J Attending Clinician Unavailable Deshazo_T Attending Clinician Unavailable RAJ WEST Attending Clinician Unavailable Jose Miguel Morin DO Attending Clinician Rosy BURNS, Brooke Ricci Attending Clinician [phone] Bessie Phillips Attending Clinician Forrest Cruz Attending Clinician Unavailable Melany Gilbert Attending Clinician Pat BURNS, Sivan Brand Attending Clinician Isra BURNS, Rachel Lew Attending Clinician [phone] Robe BURNS, Holden Elmore Attending Clinician Magaly BURNS, Shanda Higuera Attending Clinician Endy BURNS, Aurelio Attending Clinician Alesia Dodd Attending Clinician Joe BURNS, Mando Raphael Attending Clinician [phone] Jose Carlos BURNS, Veto Vincent Attending Clinician Kenyatta BURNS, Juwan Attending Clinician Doc BURNS, Sofi Juárez Attending Clinician [phone] Robert MAYS, Gayle Attending Clinician Unavailable [...] MAYS, Elodia Attending Clinician Unavailable Doctor Unassigned, [place] Attending Clinician Unavailable MONA BHAT Attending Clinician Unavailable Missy Garcia RN Attending Clinician Unavailable Jimena Easton DO Attending Clinician Arun BURNS, Eze Vail Attending Clinician Obed Gray MD Attending Clinician MONISHA BAJWA Attending Clinician Unavailable Monisha Bajwa Attending Clinician Alexandr Diane MD Attending Clinician OZ KIMBLE Attending Clinician Unavailable Hui Wright Attending Clinician HIU WRIGHT Attending Clinician Unavailable JOSE LUIS GONZALEZ Attending Clinician Unavailable Lamin BURNS, Oz Bolaños Attending Clinician Jose Luis Gonzalez MD Attending Clinician Earl Sanchez DO Attending Clinician DEJA CLEANING Attending Clinician Unavailable Deja Cleaning DPM Attending Clinician [phone] Pc, [facility] Echo Room 1 - Attending Clinician Unavailable Visit, Adc Nurse Attending Clinician Unavailable 2, [facility] Lab Attending Clinician Unavailable Mona Bhat [...] Attending Clinician Aimee Frederick Attending Clinician Unavailable Gray Manrique MD Attending Clinician Brandon Holt MD [...] Arun Espitia MD, Victor J Admitting Clinician [phone] HUI WRIGHT Admitting Clinician Unavailable Hui Wright Admitting Clinician Rei Waldron Admitting Clinician Unavailable MOISE BHAKTA Admitting Clinician Unavailable Danae Cha Admitting Clinician Joe Juárez Admitting Clinician Payers Payer Name Policy Type Policy Number Effective Date Expiration Date S karla MEDICARE PART A AND [id number] 2014 2021 B 00:00:00 00:00:[id number] 2020 00:00:00 MEDICARE PART A \\T\\ [id number] 2014 B 00:00:00 MEDICAID OF [place] [id number] 2020 00:00:00 [employer] [facility] [id number] 2021 (MEDICARE 00:00:00 REPLACEMENT HMO) MEDICARE A B [id number] 2014 00:00:00 [place] [id number] 2016 00:00:00 Problems Condition Condition Condition Status [...] /ANEMIA D/ANEMIA 00:00: Vin Active 00 01/03/2021 [facility] [place] [facility] NEW NEW Diagnosis Active 2020-12-24 Mem oria PATIENT GI PATIENT GI 10-14 10:39:00 l CONSULT CONSULT 00:00: Vin REFRACTORY REFRACTORY 00 GASTRO GASTRO Active 10/14/2020 [facility] [place] [facility] Malfunctio Malfunctio Disease Active Overview : Univers n of n of 6-03 Formattin ity of arterioven arterioven 00:00: g of this [place] ous ous 00 note Medical dialysis dialysis might be Bran ch fistula, fistula, different initial initial from the encounter encounter original. Added automatic ally from request for surgery [id number] Candidiasi Candidiasi Disease Active U nivers s of vulva s of vulva 2-18 it y of and vagina [place] [facility] Branch Screening Screening Disease Active Uni vers for breast for breast 2-18 it y of cancer cancer 00:00: [place] 00 Medical Branch NEW NEW Diagnosis Active 2018-07-26 Mem oria EVALUATION EVALUATION 07-12 09:39:00 l Active 00:00: Vin 07/12/2018 00 [facility] [place] [facility] Pyogenic Pyogenic Disease Active 2017-06 Overview: Un lori granuloma granuloma 0-17 Formattin i ty of of of 00:00: g of this [place] conjunctiv conjunctiv 00 note Me dical a, right a, right might be Bran ch different from the original. Added automatic ally from request for surgery [id number] Right eye Right eye Disease Active Overview: [...] involving for macula, macula, surgery associated associated [id number] with type with type 1 diabetes 1 [...] Added automatic ally from request for surgery [id number] ESRD (end ESRD (end Disease Active Overview: Univers stage stage 6-12 Formattin ity of renal renal 00:00: g of this [place] disease) disease) 00 note Medica l on on might be Branch dialysis dialysis different from the original. Added automatic ally from request for surgery [id number] Diabetes Diabetes Disease Active Metho di mellitus [...] Added automatic ally from request for surgery [id number] Neovascula Neovascula Disease Active U nivers r [...] Added automatic ally from request for surgery [id number] Pseudotumo Pseudotumo Disease Active U nivers r cerebri r cerebri 9-25 ity of 00:00: [place] [address] Medical Branch Liver Liver Disease Active [facility] [...] [facility] [place] Hypertensi Hypertensi Disease Active [facility] 7[facility]16 [facility] emergency emergency 00:[facility]: Medi tawnya 00 [place] ACUTE RESP ACUTE Diagnosis Active 2016-09-09 Memoria FAILURE RESP 2- 09:11:00 l FAILURE 00:00: Vin Active 00 07/23/2016 [facility] [place] [facility] CONGESTION Diagnosis Active 2016-07-24 Memoria AMD CONGESTION 2-02 01:49:00 l DIARRHEA AMD 00:00: [place] DIARRHEA 00 Active 07/23/2016 [facility] [place] [facility] Congestive Congestive Disease Active 2015-06 U T heart heart 08-11 Health failure failure 00:00: (CHF) (CHF) 00 SOB/SWELLI SOB/SWELL Diagnosis Active 2015-062016-06-10 Memoria NG ING Active 08-11 15:48:00 l 06/10/2016 00:00: Jake n [address] CHF/RENAL Diagnosis Active 2015-062016-06-24 Memoria DISEASE CHF/RENAL 08-11 15:35:00 l DISEASE 00:00: Vin Active 00 06/10/2016 [facility] [place] [facility] Obesity Obesity Disease Active 2015-06 Univers (BMI (BMI 0-12 ity of 30-39.9) 30-39.9) 00:00: [place] [address] Medical Branch Hyperosmol Hyperosmol Disease Active 2015-06 U nivers ar ar 0-12 ity of non-ketoti non-ketoti 00:00: [place] c state in c state in 00 Me dical patient patient Branch with 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 Hyperglyce Hyperglyce Disease Active 2015-06 U nivers maryam maryam 0-11 ity of 00:00: [place] [address] Medical Branch Diabetic Diabetic Disease Active Unive rs ulcer of ulcer of 5-07 ity of both feet both [place] 00:[place] associated associated 00 Me dical with type with type Bran ch 2 diabetes 2 diabetes mellitus mellitus SANJUANA (acute SANJUANA (acute Disease Active U nivers kidney kidney 5-07 ity of injury) injury) 00:00: [place] [address] Medical Branch Depression Depression Disease Active U nivers 5-07 ity of 00:00: [place] [address] Medical Branch Bipolar 1 Bipolar 1 Disease Active Uni vers disorder disorder 5-07 ity of 00:00: [place] [address] Medical Branch Suicidal Suicidal Disease Active Unive rs ideation ideation 5-05 ity of 00:00: [place] [address] Medical Branch Diabetes Diabetes Disease Active Unive [...] 00:00: [place] cancer in cancer in 00 [facility] tawnya female female Branch Family Family [...] SEIZURES 00:00: Jake gonzalez Active 00 06/26/2013 [facility] [place] [facility] ABD PAIN ABD PAIN Diagnosis Active 2012-062013-04-19 Memoria Active 0 21:51:00 l 04/14/2013 19:00: Jake gonzalez [facility] [place] GASTROPERI Diagnosis Active 2012-09-13 Memoria SIS GASTROPERI -12 15:17:00 l SIS Active 00:00: Jake gonzalez 08/02/2012 00 [facility] [place] [facility] ABDOMINAL ABDOMINAL Diagnosis Active 2012-03-14 Memoria PAIN PAIN 03-14 16:56:00 l Active 14:00: Vin 03/14/2012 00 [facility] NAUSEA, NAUSEA, Diagnosis Active 2012-03-14 Memoria VOMITING VOMITING 03-14 13:25:00 l Active 08:00: Vin 03/14/2012 00 [facility] N/V N/V Diagnosis Active 2011-12-08 Mem oria INABILITY INABILITY 11-27 11:14:00 l TO TO 00:00: Vin TOLERATE TOLERATE 00 PO PO Active 11/28/2011 [facility] [place] [facility] VOMITTING VOMITTING Diagnosis Active 2011-11-28 Memoria Active 11-27 16:28:00 l 11/28/2011 00:00: Jake n [address] VOMITTING, VOMITTING Diagnosis Active 2011-09-18 Memoria HIGH BLOOD , HIGH 09-17 09:45:00 l SUGAR BLOOD 00:00: Vin SUGAR 00 Active 09/18/2011 [facility] [place] [facility] Methicilli Methicill Problem Active 2021-01-31 Memmarin n in 08-31 22:29:25 l resistant resistant 00:00: Herm naeem Staphyloco Staphyloco 00 ccus ccus aureus aureus (organism) (organism) Active 09/01/2011 Problem 01/31/2021 09/01/11 - Elbow woundProbl em added by Discern Expert. [facility] MRSA MRSA Problem Active 2012-03-16 Memor ia Active 08-31 09:11:30 l 09/01/2011 00:00: Jake n Problem 00 03/16/2012 - Elbow [email or web address] emily added by Discern Expert. [facility] VOMITING, VOMITING, Diagnosis Active 2011-09-01 [facility] BLOOD BLOOD 08-30 03:19:00 l SUGAR SUGAR 00:00: [place] READINGS READINGS 00 HIGH HIGH Active 08/31/2011 [facility] [place] [facility] ELBOW ELBOW Diagnosis Active 2011-09-10 Me moria ABSCESS/HY ABSCESS/HY 08-30 16:26:00 l PERGLYCEMI PERGLYCEMI 00:00: He rmann A A Active 00 08/31/2011 [facility] [place] [facility] Hypokalemi Hypokalem Problem Active 2012-03-16 Memoria a ia Active 08-22 09:11:30 l 08/23/2011 00:00: Jake n Problem 00 03/16/2012 [facility] DKA DKA Diagnosis Active 2011-08-24 Mem oria Active 11:27:00 l 08/19/2011 00:00: Jake gonzalez [address] VOMITING VOMITING Diagnosis Active 2011-08-19 Memoria Active 16:21:00 l 08/19/2011 00:00: Jake gonzalez [address] Final: Final: Problem 2016-08-02 Mendoza janice Acute Acute 02:46:22 l respirator respirator He rmann y failure, y failure, unspecifie unspecifie d whether d whether with with hypoxia or hypoxia or hypercapni hypercapni a a 08/02/2016 [facility] [place] [facility] Hypoglycem Hypoglyce Problem Inactiv 2012-03-16 Memoria ia maryam e 09:11:30 l Inactive [place] Problem 03/16/2012 [facility] Hypoglycem Hypoglyce Problem Inactiv 2013-04-22 Memoria ia maryam e 04:46:33 l (disorder) (disorder) He rmann Inactive Problem 04/22/2013 [facility] Gastropare Gastropar Problem Resolve 2021-01-31 Memoria sis esis d 22:29:25 l (disorder) (disorder) He rmann Resolved Problem 01/31/2021 [facility] [place] [facility] Hypertensi Hypertens Problem Resolve 2021-01-31 Memoria ve montse d 22:29:25 l disorder, disorder, Herm naeem systemic systemic arterial arterial (disorder) (disorder) Resolved Problem 01/31/2021 [facility] Psychiatri Psychiatr Problem Resolve 2021-01-31 Memoria c ic d 22:29:25 l behavioral behavioral He rmann disability disability (finding) (finding) Resolved Problem 01/31/2021 [facility] [place] [facility] Seizure Seizure Problem Resolve 2021-01-31 M emoria (finding) (finding) d 22:29:25 l Resolved [place] Problem 01/31/2021 [facility] [place] [facility] Hypertensi Hypertens Problem Active 2012-03-16 Memoria on ion Active 09:11:30 l Problem [place] 03/16/2012 [facility] Hypomagnes Hypomagne Problem Active 2013-04-22 Memoria emia semia 04:46:33 l Active [place] Problem 04/22/2013 [facility] Nausea and Nausea Problem Active 2012-03-16 Memoria vomiting and 09:11:30 l vomiting Vin Active Problem 03/16/2012 [facility] ENCNTR FOR ENCNTR Diagnosis Active 2020-12-24 Memoria GENERAL FOR 10:39:00 l ADULT GENERAL [place] MEDICAL ADULT EXAM W/ MEDICAL EXAM W/ Active [facility] [place] [facility] DMI DMI Diagnosis Active 2011-08-24 Mem oria KETOACD KETOACD 11:27:00 l UNCONTROLD UNCONTROLD He rmann Active [facility] [place] [facility] OTHER OTHER Diagnosis Active 2011-09-10 Mem oria GENERAL GENERAL 16:26:00 l SYMPTOMS SYMPTOMS Jake n Active [facility] [place] [facility] HEART HEART Diagnosis Active 2016-06-24 Mem oria FAILURE, FAILURE, 15:35:00 l UNSPECIFIE UNSPECIFIE He rmann D D Active [facility] [place] [facility] ACUTE ACUTE Diagnosis Active 2016-09-09 Me moria RESPIRATOR RESPIRATOR 09:11:00 l Y FAILURE, Y FAILURE, He rmann UNSP W UNSP W HYPOXI HYPOXI Active [facility] [place] [facility] Nausea and Nausea Problem Resolve 2021-01-31 2021-01-31 Memoria vomiting and d - 22:29:25 22:29:25 l (disorder) vomiting 00:00: Herm naeem (disorder) 00 Resolved 11/29/2011 Problem 01/31/2021 [facility] Hypokalemi Hypokalem Problem Resolve 2021-01-31 2021-01-31 Memoria a ia d 08-22 22:29:25 22:29:25 l (disorder) (disorder) 00:00: He rmann Resolved 00 08/23/2011 Problem 01/31/2021 [facility] Disorder Disorder Problem Resolve 2021-01-31 2021-01-31 Memoria of of d 08-22 22:29:25 22:29:25 l magnesium magnesium 00:00: Herm naeem metabolism metabolism 00 (disorder) (disorder) Resolved 08/23/2011 Problem 01/31/2021 [facility] [place] [facility] Hyperglyce Hyperglyc Problem Resolve 2021-01-31 2021-01-31 Memoria maryam emia d 08-19 22:29:25 22:29:25 l (disorder) (disorder) 00:00: He rmann Resolved 00 08/20/2011 Problem 01/31/2021 [facility] Ketoacidos Ketoacido Problem Resolve 2021-01-31 2021-01-31 Memoria is in sis in d 22:29:25 22:29:25 l diabetes diabetes 00:00: Jake gonzalez mellitus mellitus 00 (disorder) (disorder) Resolved 08/19/2011 Problem 01/31/2021 [facility] [place] [facility] DKA DKA Problem Resolve 2013-04-22 2013-04-22 Memoria (diabetic (diabetic d 04:46:33 04:46:33 l ketoacidos ketoacidos 00:00: Tyrel thompson) es) 00 Resolved 08/19/2011 Problem 04/22/2013 [facility] History of Past Illness Condition Condition Condition Status Onset Resolution Last Treating Co mments Source Name Details Category Date Date Treatment Clinician Date Discharge Discharge Problem 2014-06-28 2014-06-28 Memoria Diagnosis: Diagnosis: 06-26 16:34:37 16:34:37 l Gastropare Gastropare 06:00: Tyrel canales sis sis 00 06/26/2014 06/28/2014 [facility] [place] [facility] Hyperglyce Hyperglyc Problem Inactiv 2012-03-16 2012-03-16 Memoria maryam emia e 3- 09:11:30 09:11:30 l Inactive 00:00: Vin 08/20/2011 00 Problem 03/16/2012 [facility] Allergies, Adverse Reactions, Alerts Allergy Allergy [...] Allergy Active Swelling throatthr [facility] Trometha substanc 00:00: mine e 00 Ketorola Propensi Active Swelling THROAT Meth frantz c ty to [address] Trometha adverse 00:00: Hospita mine reaction 00 l s to drug KETOROLA DRUG Active High Swelling Univer s C INGREDI 6-25 ity of TROMETHA 00:00: [place] MINE 00 Medical Branch Phenylep Propensi Active Hives Other Method i hrine ty to 4-29 reaction( st adverse 00:00: s): Hives Hospit [...] ity of 00:00: [place] 00 [facility] Hydrocod Propensi Active Other (See Me thodi one-Pota ty to Comments) 01-13 st ssium adverse 00:00: Hospita [place] reaction 00 l s to drug Codeine Propensi Active Other (See Other Met hodi ty to Comments) 01-13 reaction( st adverse 00:00: s): Other Hospit a reaction 00 (see l s to comments) drug Guaifene Propensi Active Other (See Other [...] Other - See commentsn bety mbnessnum bnessnumb nessnumbn essnumbne ssnumbnes s PROLEX [...] penicill Active Memori a ins ins l [place] codeine codeine Active Memoria l [place] morphine morphine Active Memori a l Vin lisinopr lisinopr Active Memori a il il l Vni Adhesive Adhesive Active Memori a Tape Tape l [place] Ambien Ambien Active Memoria l [place] Prolex Prolex Active Memoria DM DM l [place] penicill Drug Active [facility] lisinopr Drug Active [facility] Ambien Drug Active [facility] Prolixin Drug Active [facility] penicill Drug Active [facility] lisinopr Drug Active [facility] Drug Active [facility] Prolixin Drug Active [facility] Tape Other Active [facility] penicill Drug Active [facility] lisinopr Drug Active [facility] Drug Active [facility] Prolixin Drug Active [facility] codeine Drug Active [facility] penicill Drug Active [facility] lisinopr Drug Active [facility] Drug Active [facility] Prolixin Drug Active [facility] codeine Drug Active [facility] penicill Drug Active [facility] lisinopr Drug Active [facility] Drug Active [facility] Prolixin Drug Active [facility] penicill Drug Active [facility] lisinopr Drug Active [facility] Drug Active [facility] Prolixin Drug Active [facility] penicill Drug Active [facility] lisinopr Drug Active [facility] Drug Active [facility] Prolixin Drug Active [facility] Social History Social Habit Start Date Stop Date Quantity Comments Source History of tobacco Cigarette Smoker [facility] use [facility] Exposure to Yes [facility] SARS-CoV-2 (event) Hospit al Alcohol intake 2021-06-18 2021-06-18 Ex-drinker [facility] 00:00:00 00:00:00 (finding) Hospital Tobacco use and 2021-05-14 2021-05-14 Smokeless tobacco Me thodist exposure 00:00:00 00:00:00 non-user Hospital Cigarettes smoked 2021-05-14 2021-05-14 [facility] current (pack per 00:00:00 00:00:00 Hospita l day) - Reported Cigarette 2021-05-14 2021-05-14 [facility] pack-years 00:00:00 00:00:00 Hospital Social History 2020-12-24 2020-12-24 [facility] 15:49:37 15:49:37 Tobacco Comment 2017-11-12 2017-11-12 5 cigarettes per Met hodist 00:00:00 00:00:00 day Hospital Sex Assigned At [birth year] [facility] 00:00:00 00:00:00 Hospital Smoking Status Start Date Stop Date Source Smokes tobacco daily 2021-05-14 00:00:00 [facility] Former smoker 2020-06-27 00:00:00 2020-06-27 00:00:00 [facility] Medications Ordered Filled Start Stop Current Ordering Indication Dosage Frequency Signature Comments Components Source Medication Medication Date Date Medication? Clinician (SIG) Name Name calcium Yes 1334mg Q.[id number] Take 1,334 Methodi acetate,domingo 1-18 [id number] mg by s t sphat bind, 13:02: 3D mouth 3 Hos whit (Phoslyra) 39 (three) l 667 mg (169 times a mg day. calcium)/5 mL solution cyproheptad Yes 4mg Q.[id number] Take 4 mg Methodi ine 1-18 [id number] mouth [address] (PERIACTIN) 13:02: 3D (three) Hos whit 4 mg tablet 39 times a l day as needed for allergies. buPROPion 2022-0 Yes 300mg QD Take 300 Met hodi XL 1-[address] (WELLBUTRIN 13:02: mouth Hospi ta XL) 300 MG 39 daily. l 24 hr tablet ascorbic 2022-0 Yes 500mg Q.[id number] Take 500 Methodi acid, 1-[id number] vitamin C, 13:02: 3D [...] jo-ann 39 l calcium 2021-0 Yes 667mg Q.[id number] Take 667 Methodi acetate 1-[id number] (PHOSLO) 13:02: 3D mouth [...] 39 nightly. l calcium 2021-0 Yes 1334mg Q.[id number] Take 1,334 Methodi acetate,domingo 1-18 [id number] mg by s t sphat bind, 13:02: 3D mouth 3 Hos whit (Phoslyra) 39 (three) l 667 mg (169 times a mg day. calcium)/5 mL solution cyproheptad 2021-0 Yes 4mg Q.[id number] Take 4 mg Methodi ine 1-18 [id number] mouth [address] (PERIACTIN) 13:02: 3D (three) Hos whit 4 mg tablet 39 times a l day as needed for allergies. buPROPion 2021-0 Yes 300mg QD Take 300 Met hodi XL 1-[address] (WELLBUTRIN 13:02: mouth Hospi ta XL) 300 MG 39 daily. l 24 hr tablet ascorbic 2021-0 Yes 500mg Q.[id number] Take 500 Methodi acid, 1-[id number] vitamin C, 13:02: 3D [...] jo-ann 39 l calcium 2021-0 Yes 667mg Q.[id number] Take 667 Methodi acetate 1-[id number] (PHOSLO) 13:02: 3D mouth [...] 39 nightly. l calcium 0 Yes 1334mg Q.[id number] Take 1,334 Methodi acetate,domingo 1-18 [id number] mg by s t sphat bind, 13:02: 3D mouth 3 Hos whit (Phoslyra) 39 (three) l 667 mg (169 times a mg day. calcium)/5 mL solution cyproheptad 0 Yes 4mg Q.[id number] Take 4 mg Methodi ine 1-18 [id number] [address] mouth [address] (PERIACTIN) 13:02: 3D (three) Hos whit 4 mg tablet 39 times a l day as needed for allergies. buPROPion 0 Yes 300mg QD Take 300 Met hodi XL 1-[address] (WELLBUTRIN 13:02: mouth Hospi ta XL) 300 MG 39 daily. l 24 hr tablet ascorbic 2021-0 Yes 500mg Q.[id number] Take 500 Methodi acid, 1-[id number] vitamin C, 13:02: 3D [...] jo-ann 39 l calcium 2021-0 Yes 667mg Q.[id number] Take 667 Methodi acetate 1-[id number] (PHOSLO) 13:02: 3D mouth [...] 39 nightly. l calcium 2021-0 Yes 1334mg Q.[id number] Take 1,334 Methodi acetate,domingo 1-18 [id number] mg by s t sphat bind, 13:02: 3D mouth 3 Hos whit (Phoslyra) 39 (three) l 667 mg (169 times a mg day. calcium)/5 mL solution cyproheptad 2021-0 Yes 4mg Q.[id number] Take 4 mg Methodi ine 1-[id number] mouth [address] (PERIACTIN) 13:02: 3D (three) Hos whit 4 mg tablet 39 times a l day as needed for allergies. buPROPion 2021-0 Yes 300mg QD Take 300 Met hodi XL 1-[address] (WELLBUTRIN 13:02: mouth Hospi ta XL) 300 MG 39 daily. l 24 hr tablet ascorbic 2021-0 Yes 500mg Q.[id number] Take 500 Methodi acid, 1-[id number] vitamin C, 13:02: 3D [...] jo-ann 39 l calcium 2021-0 Yes 667mg Q.[id number] Take 667 Methodi acetate 1-[id number] (PHOSLO) 13:02: 3D mouth [...] 39 nightly. l calcium 2021-0 Yes 1334mg Q.[id number] Take 1,334 Methodi acetate,domingo 1-18 [id number] mg by s t sphat bind, 13:02: 3D mouth 3 Hos whit (Phoslyra) 39 (three) l 667 mg (169 times a mg day. calcium)/5 mL solution cyproheptad 2021-0 Yes 4mg Q.[id number] Take 4 mg Methodi ine 1-18 [id number] mouth [address] (PERIACTIN) 13:02: 3D (three) Hos whit 4 mg tablet 39 times a l day as needed for allergies. buPROPion 2021-0 Yes 300mg QD Take 300 Met hodi XL 1-[address] (WELLBUTRIN 13:02: mouth Hospi ta XL) 300 MG 39 daily. l 24 hr tablet ascorbic 2021-0 Yes 500mg Q.[id number] Take 500 Methodi acid, 1-[id number] vitamin C, 13:02: 3D [...] jo-ann 39 l calcium 2021-0 Yes 667mg Q.[id number] Take 667 Methodi acetate 1-[id number] (PHOSLO) 13:02: 3D mouth [...] 39 nightly. l calcium 2021-0 Yes 1334mg Q.[id number] Take 1,334 Methodi acetate,domingo 1-18 [id number] mg by s t sphat bind, 13:02: 3D mouth 3 Hos whit (Phoslyra) 39 (three) l 667 mg (169 times a mg day. calcium)/5 mL solution cyproheptad 2021-0 Yes 4mg Q.[id number] Take 4 mg Methodi ine 1-[id number] mouth [address] (PERIACTIN) 13:02: 3D (three) Hos whit 4 mg tablet 39 times a l day as needed for allergies. buPROPion 2021-0 Yes 300mg QD Take 300 Met hodi XL 1-[address] (WELLBUTRIN 13:02: mouth Hospi ta XL) 300 MG 39 daily. l 24 hr tablet ascorbic 2021-0 Yes 500mg Q.[id number] Take 500 Methodi acid, 1-[id number] vitamin C, 13:02: 3D [...] jo-ann 39 l calcium 2021-0 Yes 667mg Q.[id number] Take 667 Methodi acetate 1-[id number] (PHOSLO) 13:02: 3D mouth [...] 39 nightly. l calcium 2022-0 Yes 1334mg Q.[id number] Take 1,334 Methodi acetate,domingo 1-18 [id number] mg by s t sphat bind, 13:02: 3D mouth 3 Hos whit (Phoslyra) 39 (three) l 667 mg (169 times a mg day. calcium)/5 mL solution cyproheptad 2021-0 Yes 4mg Q.[id number] Take 4 mg Methodi ine 1-[id number] mouth [address] (PERIACTIN) 13:02: 3D (three) Hos whit 4 mg tablet 39 times a l day as needed for allergies. buPROPion 2021-0 Yes 300mg QD Take 300 Met hodi XL 1-[address] (WELLBUTRIN 13:02: mouth Hospi ta XL) 300 MG 39 daily. l 24 hr tablet ascorbic 2021-0 Yes 500mg Q.[id number] Take 500 [facility] acid, 1-[id number] vitamin C, 13:02: 3D [...] jo-ann 39 l calcium 2021-0 Yes 667mg Q.41032461 Take 667 [facility] acetate 1-[address] (PHOSLO) 13:02: 3D mouth [...] 39 nightly. l calcium 2021-0 Yes 1334mg Q.25677731 Take 1,334 [facility] acetate,domingo 1-18 [id number] mg by s t sphat bind, 13:02: 3D mouth 3 Hos whit (Phoslyra) 39 (three) l 667 mg (169 times a mg day. calcium)/5 mL solution cyproheptad 0 Yes 4mg Q.88355660 Take 4 mg [facility] ine 1-18 [id number] [address] mouth [address] (PERIACTIN) 13:02: 3D (three) Hos whit 4 mg tablet 39 times a l day as needed for allergies. buPROPion 2022-0 Yes 300mg QD Take 300 Met hodi XL 1-[address] (WELLBUTRIN 13:02: mouth Hospi ta XL) 300 MG 39 daily. l 24 hr tablet ascorbic 2-0 Yes 500mg Q.86694685 Take 500 [facility] acid, 1-[address] vitamin C, 13:02: 3D [...] jo-ann 39 l calcium 2021-0 Yes 667mg Q.22455402 Take 667 [facility] acetate 1-[id number] (PHOSLO) 13:02: 3D mouth [...] 39 nightly. l calcium 2021-0 Yes 1334mg Q.27380738 Take 1,334 [facility] acetate,domingo 1-18 5405830919 mg by s t sphat bind, 13:02: 3D mouth 3 Hos whit (Phoslyra) 39 (three) l 667 mg (169 times a mg day. calcium)/5 mL solution cyproheptad 0 Yes 4mg Q.80329595 Take 4 mg [facility] ine 1-18 [id number] [address] mouth [address] (PERIACTIN) 13:02: 3D (three) Hos whit 4 mg tablet 39 times a l day as needed for allergies. buPROPion 0 Yes 300mg QD Take 300 Met hodi XL 1-[address] (WELLBUTRIN 13:02: mouth Hospi ta XL) 300 MG 39 daily. l 24 hr tablet ascorbic 2021-0 Yes 500mg Q.45002375 Take 500 [facility] acid, 1-[address] vitamin C, 13:02: 3D [...] jo-ann 39 l calcium 2021-0 Yes 667mg Q.36304503 Take 667 [facility] acetate 1-[id number] (PHOSLO) 13:02: 3D mouth [...] 39 nightly. l calcium 2021-0 Yes 1334mg Q.99512848 Take 1,334 [facility] acetate,domingo 1-18 [id number] mg by s t sphat bind, 13:02: 3D mouth 3 Hos whit (Phoslyra) 39 (three) l 667 mg (169 times a mg day. calcium)/5 mL solution cyproheptad 0 Yes 4mg Q.74774273 Take 4 mg [facility] ine 1-18 [id number] by mouth [address] (PERIACTIN) 13:02: 3D (three) Hos whit 4 mg tablet 39 times a l day as needed for allergies. buPROPion 2021-0 Yes 300mg QD Take 300 Met hodi XL 1-[address] (WELLBUTRIN 13:02: mouth Hospi ta XL) 300 MG 39 daily. l 24 hr tablet ascorbic 2021-0 Yes 500mg Q.90366898 Take 500 [facility] acid, 1-[address] vitamin C, 13:02: 3D [...] jo-ann 39 l calcium 2021-0 Yes 667mg Q.26447941 Take 667 [facility] acetate 1-[id number] (PHOSLO) 13:02: 3D mouth [...] 39 nightly. l calcium 2021-0 Yes 1334mg Q.30245914 Take 1,334 [facility] acetate,domingo 1-18 [id number] mg by s t sphat bind, 13:02: 3D mouth 3 Hos whit (Phoslyra) 39 (three) l 667 mg (169 times a mg day. calcium)/5 mL solution cyproheptad 0 Yes 4mg Q.[id number] Take 4 mg [facility] ine 1-18 [id number] [address] mouth [address] (PERIACTIN) 13:02: 3D (three) Hos whit 4 mg tablet 39 times a l day as needed for allergies. buPROPion 2021-0 Yes 300mg QD Take 300 Met hodi XL 1-[address] (WELLBUTRIN 13:02: mouth Hospi ta XL) 300 MG 39 daily. l 24 hr tablet ascorbic 2021-0 Yes 500mg Q.92538493 Take 500 [facility] acid, 1-[address] vitamin C, 13:02: 3D [...] jo-ann 39 l calcium 2021-0 Yes 667mg Q.44350147 Take 667 [facility] acetate 1-[id number] (PHOSLO) 13:02: 3D mouth [...] 39 nightly. l calcium 2021-0 Yes 1334mg Q.92574865 Take 1,334 [facility] acetate,domingo 1-18 [id number] mg by s t sphat bind, 13:02: 3D mouth 3 Hos whit (Phoslyra) 39 (three) l 667 mg (169 times a mg day. calcium)/5 mL solution cyproheptad 2021-0 Yes 4mg Q.[id number] Take 4 mg [facility] ine 1-18 [id number] by mouth [address] (PERIACTIN) 13:02: 3D (three) Hos whit 4 mg tablet 39 times a l day as needed for allergies. buPROPion 2021-0 Yes 300mg QD Take 300 Met hodi XL 1-[address] (WELLBUTRIN 13:02: mouth Hospi ta XL) 300 MG 39 daily. l 24 hr tablet ascorbic 2021-0 Yes 500mg Q.60530117 Take 500 [facility] acid, 1-[id number] vitamin C, 13:02: 3D [...] jo-ann 39 l calcium 2021-0 Yes 667mg Q.[id number] Take 667 [facility] acetate 1-[id number] (PHOSLO) 13:02: 3D mouth [...] 39 nightly. l calcium 2022-0 Yes 1334mg Q.58096537 Take 1,334 [facility] acetate,domingo 1-18 [id number] mg by s t sphat bind, 13:02: 3D mouth 3 Hos whit (Phoslyra) 39 (three) l 667 mg (169 times a mg day. calcium)/5 mL solution cyproheptad 2021-0 Yes 4mg Q.36544849 Take 4 mg [facility] ine 1-18 [id number] by mouth [address] (PERIACTIN) 13:02: 3D (three) Hos whit 4 mg tablet 39 times a l day as needed for allergies. buPROPion 2021-0 Yes 300mg QD Take 300 Met hodi XL 1-[address] (WELLBUTRIN 13:02: mouth Hospi ta XL) 300 MG 39 daily. l 24 hr tablet ascorbic 2021-0 Yes 500mg Q.75958103 Take 500 [facility] acid, 1-[address] vitamin C, 13:02: 3D [...] jo-ann 39 l calcium 2021-0 Yes 667mg Q.[id number] Take 667 [facility] acetate 1-[id number] (PHOSLO) 13:02: 3D mouth [...] jo-ann 39 l calcium 2-0 Yes 667mg Q.27448406 Take 667 [facility] acetate 1-[id number] (PHOSLO) 13:02: 3D mouth [...] 39 nightly. l calcium 0 Yes 1334mg Q.39512437 Take 1,334 [facility] acetate,domingo 1-18 [id number] mg by s t sphat bind, 13:02: 3D mouth 3 Hos whit (Phoslyra) 39 (three) l 667 mg (169 times a mg day. calcium)/5 mL solution cyproheptad 0 Yes 4mg Q.66552872 Take 4 mg [facility] ine 1-18 [id number] [address] mouth [address] (PERIACTIN) 13:02: 3D (three) Hos whit 4 mg tablet 39 times a l day as needed for allergies. buPROPion 0 Yes 300mg QD Take 300 Met hodi XL 1-[address] (WELLBUTRIN 13:02: mouth Hospi ta XL) 300 MG 39 daily. l 24 hr tablet ascorbic 0 Yes 500mg Q.68283254 Take 500 [facility] acid, 1-[id number] vitamin C, 13:02: 3D [...] mg at night vancomycin 2020-06- No 750mg Q.65236864 Infuse 750 [facility] 750 mg in 07-08 [id number] mg into a [address] sodium 00:00: 05:59 3W venous [facility]ospita chloride 00 :00 catheter 3 l 0.9% 250 mL (three) IVPB times a week for 19 days. Administer 3 times weekly in dialysis vancomycin 2020-06- No 750mg Q.44075311 Infuse 750 [facility] 750 mg in 07-08 [id number] mg into a [address] sodium 00:00: 05:59 3W venous Hospita chloride 00 :00 catheter 3 l 0.9% 250 mL (three) IVPB times a week for 19 days. Administer 3 times weekly in dialysis vancomycin 2020-06- No 750mg Q.14109551 Infuse 750 [facility] 750 mg in 07-08 [id number] mg into a [address] sodium 00:00: 05:59 3W venous [facility] chloride 00 :00 catheter 3 l 0.9% 250 mL (three) IVPB times a week for 19 days. Administer 3 times weekly in dialysis vancomycin 2020-06- No 750mg Q.24678094 Infuse 750 [facility] 750 mg in 07-08 [id number] mg into a [address] sodium 00:00: 05:59 3W venous [facility]ita chloride 00 :00 catheter 3 l 0.9% 250 mL (three) IVPB times a week for 19 days. Administer 3 times weekly in dialysis vancomycin 2020-06- No 750mg Q.92935061 Infuse 750 [facility] 750 mg in 07-08 [id number] mg into a [address] sodium 00:00: 05:59 3W venous [facility]ita chloride 00 :00 catheter 3 l 0.9% 250 mL (three) IVPB times a week for 19 days. Administer 3 times weekly in dialysis vancomycin 2020-06- No 750mg Q.25316491 Infuse 750 [facility] 750 mg in 07-08 [id number] mg into a [address] sodium 00:00: 05:59 3W venous [facility] chloride 00 :00 catheter 3 l 0.9% 250 mL (three) IVPB times a week for 19 days. Administer 3 times weekly in dialysis vancomycin 2020-06- No 750mg Q.27146006 Infuse 750 [facility] 750 mg in 07-08 [id number] mg into a [facility] sodium 00:00: 05:59 3W venous [facility] chloride 00 :00 catheter 3 l 0.9% 250 mL (three) IVPB times a week for 19 days. Administer 3 times weekly in dialysis vancomycin 2020-06- No 750mg Q.63241218 Infuse 750 [facility] 750 mg in 07-08 [id number] mg into a [address] sodium 00:00: 05:59 3W venous [facility] chloride 00 :00 catheter 3 l 0.9% 250 mL (three) IVPB times a week for 19 days. Administer 3 times weekly in dialysis vancomycin 2020-06- No 750mg Q.64066927 Infuse 750 [facility] 750 mg in 07-08 [id number] mg into a [address] sodium 00:00: 05:59 3W venous [facility] chloride 00 :00 catheter 3 l 0.9% 250 mL (three) IVPB times a week for 19 days. Administer 3 times weekly in dialysis vancomycin 2020-06- No 750mg Q.48619580 Infuse 750 [facility] 750 mg in 07-08 [id number] mg into a [address] sodium 00:00: 05:59 3W venous [facility] chloride 00 :00 catheter 3 l 0.9% 250 mL (three) IVPB times a week for 19 days. Administer 3 times weekly in dialysis vancomycin 2020-06- No 750mg Q.80538052 Infuse 750 [facility] 750 mg in 07-08 [id number] mg into a [address] sodium 00:00: 05:59 3W venous [facility]ita chloride 00 :00 catheter 3 l 0.9% 250 mL (three) IVPB times a week for 19 days. Administer 3 times weekly in dialysis vancomycin 2020-06- No 750mg Q.52492156 Infuse 750 [facility] 750 mg in 07-08 [id number] mg into a [address] sodium 00:00: 05:59 3W venous [facility]ita chloride 00 :00 catheter 3 l 0.9% 250 mL (three) IVPB times a week for 19 days. Administer 3 times weekly in dialysis vancomycin 2020-06- No 750mg Q.38669776 Infuse 750 [facility] 750 mg in 07-08 [id number] mg into a [address] sodium 00:00: 05:59 3W venous [facility] chloride 00 :00 catheter 3 l 0.9% 250 mL (three) IVPB times a week for 19 days. Administer 3 times weekly in dialysis HYDROcodone 2020-06 1{tbl} Q6H Take 1 [facility] -acetaminop 06-[address] [facility] (ContaAzul) 00:00: 05:59 mouth Hosp jo-ann 5-325 mg 00 :00 every 6 l per tablet (six) hours as needed for severe pain for up to 5 days .acute pain. Max Daily Amount: 4 tablets HYDROcodone 2020-06 1{tbl} Q6H Take 1 [facility] -acetaminop 2-29 01-[address] [facility] (ContaAzul) 00:00: 05:59 mouth Hosp jo-ann 5-325 mg 00 :00 every 6 l per tablet (six) hours as needed for severe pain for up to 5 days .acute pain. Max Daily Amount: 4 tablets HYDROcodone 2020-06 1{tbl} Q6H Take 1 [facility] -acetaminop 2-29 -[address] [facility] (ContaAzul) 00:00: 05:59 mouth Hosp jo-ann 5-325 mg 00 :00 every 6 l per tablet (six) hours as needed for severe pain for up to 5 days .acute pain. Max Daily Amount: 4 tablets HYDROcodone 2020-06 1{tbl} Q6H Take 1 [facility] -acetaminop 2-29 -[address] [facility] (ContaAzul) 00:00: 05:59 mouth Hosp jo-ann 5-325 mg 00 :00 every 6 l per tablet (six) hours as needed for severe pain for up to 5 days .acute pain. Max Daily Amount: 4 tablets HYDROcodone 2020-06 1{tbl} Q6H Take 1 [facility] -acetaminop 2-29 -[address] [facility] (ContaAzul) 00:00: 05:59 mouth Hosp joa-nn 5-325 mg 00 :00 every 6 l per tablet (six) hours as needed for severe pain for up to 5 days .acute pain. Max Daily Amount: 4 tablets HYDROcodone 2020-06 1{tbl} Q6H Take 1 [facility] -acetaminop 2-29 -[address] [facility] (ContaAzul) 00:00: 05:59 mouth Hosp jo-ann 5-325 mg 00 :00 every 6 l per tablet (six) hours as needed for severe pain for up to 5 days .acute pain. Max Daily Amount: 4 tablets HYDROcodone 2020-0628 1{tbl} Q6H Take 1 [facility] -acetaminop 2-29 -[address] [facility] (ContaAzul) 00:00: 05:59 mouth Hosp jo-ann 5-325 mg 00 :00 every 6 l per tablet (six) hours as needed for severe pain for up to 5 days .acute pain. Max Daily Amount: 4 tablets HYDROcodone 2020-06 1{tbl} Q6H Take 1 [facility] -acetaminop 2-29 -[address] hen (ContaAzul) 00:00: 05:59 mouth Hosp jo-ann 5-325 mg 00 :00 every 6 l per tablet (six) hours as needed for severe pain for up to 5 days .acute pain. Max Daily Amount: 4 tablets HYDROcodone 2020-06 1{tbl} Q6H Take 1 [facility] -acetaminop 2-29 -[address] hen (ContaAzul) 00:00: 05:59 mouth Hosp jo-ann 5-325 mg 00 :00 every 6 l per tablet (six) hours as needed for severe pain for up to 5 days .acute pain. Max Daily Amount: 4 tablets HYDROcodone 2020-06 1{tbl} Q6H Take 1 [facility] -acetaminop 2-29 -[address] hen (ContaAzul) 00:00: 05:59 mouth Hosp jo-ann 5-325 mg 00 :00 every 6 l per tablet (six) hours as needed for severe pain for up to 5 days .acute pain. Max Daily Amount: 4 tablets HYDROcodone 2020-06 1{tbl} Q6H Take 1 [facility] -acetaminop 2-29 -[address] hen (ContaAzul) 00:00: 05:59 mouth Hosp jo-ann 5-325 mg 00 :00 every 6 l per tablet (six) hours as needed for severe pain for up to 5 days .acute pain. Max Daily Amount: 4 tablets HYDROcodone 2020-06 1{tbl} Q6H Take 1 [facility] -acetaminop 2-29 -[address] hen (ContaAzul) 00:00: 05:59 mouth Hosp jo-ann 5-325 mg 00 :00 every 6 l per tablet (six) hours as needed for severe pain for up to 5 days .acute pain. Max Daily Amount: 4 tablets HYDROcodone 2020-06 1{tbl} Q6H Take 1 [facility] -acetaminop 2-29 -[address] hen (ContaAzul) 00:00: 05:59 mouth Hosp jo-ann 5-325 mg [...] 50mg QD Take 50 mg [facility] one 08-06-[address] (ALDACTONE) 10:21: 00:00 daily. Hos whit 50 MG 19 :00 l tablet spironolact 2020-06- No 50mg QD Take 50 mg [facility] one - 12-[address] (ALDACTONE) 10:21: 00:00 [...] mg for 30 per tablet days. gabapentin 2020- No 300mg QD Take 1 Met hodi [...] mg for 30 per tablet days. gabapentin 2020- 300mg QD Take 1 Met hodi (NEURONTIN) 2-10 19-[address] 300 mg 00:00: 05:59 (300 mg Hospita capsule 00 :00 total) by l mouth daily for 30 days. sennosides- 2020- No 1{tbl} QD Take 1 M ethodi [...] 2-05 12-13 tablets by s t hen (ContaAzul) 00:00: 05:59 mouth Hosp jo-ann 5-325 mg 00 :00 every 8 l per tablet (eight) hours as needed for severe pain for up to 7 days .acute pain. Max Daily Amount: 6 tablets HYDROcodone 2020-06 2{tbl} Q8H Take 2 [facility] -acetaminop 2-05 12-13 tablets by s t hen (ContaAzul) 00:00: 05:59 mouth Hosp jo-ann 5-325 mg 00 :00 every 8 l per tablet (eight) hours as needed for severe pain for up to 7 days .acute pain. Max Daily Amount: 6 tablets HYDROcodone 2020-06 2{tbl} Q8H Take 2 [facility] -acetaminop 2-05 12-13 tablets by s t hen (ContaAzul) 00:00: 05:59 mouth Hosp jo-ann 5-325 mg 00 :00 every 8 l per tablet (eight) hours as needed for severe pain for up to 7 days .acute pain. Max Daily Amount: 6 tablets HYDROcodone 2020-06 2{tbl} Q8H Take 2 [facility] -acetaminop 2-05 12-13 tablets by s t hen (ContaAzul) 00:00: 05:59 mouth Hosp jo-ann 5-325 mg 00 :00 every 8 l per tablet (eight) hours as needed for severe pain for up to 7 days .acute pain. Max Daily Amount: 6 tablets HYDROcodone 2020-06 2{tbl} Q8H Take 2 [facility] -acetaminop 2-05 12-13 tablets by s t hen (ContaAzul) 00:00: 05:59 mouth Hosp jo-ann 5-325 mg 00 :00 every 8 l per tablet (eight) hours as needed for severe pain for up to 7 days .acute pain. Max Daily Amount: 6 tablets HYDROcodone 2020-0628 2{tbl} Q8H Take 2 [facility] -acetaminop 2-05 12-13 tablets by s t hen (ContaAzul) 00:00: 05:59 mouth Hosp jo-ann 5-325 mg 00 :00 every 8 l per tablet (eight) hours as needed for severe pain for up to 7 days .acute pain. Max Daily Amount: 6 tablets HYDROcodone 2020-06 98239 2{tbl} Q8H Take 2 [facility] -acetaminop 2-05 12-13 tablets by s t hen (ContaAzul) 00:00: 05:59 mouth Hosp jo-ann 5-325 mg 00 :00 every 8 l per tablet (eight) hours as needed for severe pain for up to 7 days .acute pain. Max Daily Amount: 6 tablets HYDROcodone 2020-0628 2{tbl} Q8H Take 2 [facility] -acetaminop 2-05 12-13 tablets by s t hen (ContaAzul) 00:00: 05:59 mouth Hosp jo-ann 5-325 mg 00 :00 every 8 l per tablet (eight) hours as needed for severe pain for up to 7 days .acute pain. Max Daily Amount: 6 tablets HYDROcodone 2020-0628 2{tbl} Q8H Take 2 [facility] -acetaminop 2-05 12-13 tablets by s t hen (ContaAzul) 00:00: 05:59 mouth Hosp jo-ann 5-325 mg 00 :00 every 8 l per tablet (eight) hours as needed for severe pain for up to 7 days .acute pain. Max Daily Amount: 6 tablets HYDROcodone 2020-0628 2{tbl} Q8H Take 2 [facility] -acetaminop 2-05 12-13 tablets by s t hen (ContaAzul) 00:00: 05:59 mouth Hosp jo-ann 5-325 mg [...] Daily Amount: 6 tablets predniSONE 2020-06- No [id number] Take M ethodi (DELTASONE) 07-18 1205 Prednisone s t 50 mg 00:00: 00:00 50mg 13 Hospita tablet 00 :00 hours, 7 l hours, and 1 hour prior to scheduled procedure on 05/19/2021 for contrast allergy prophylaxi s. predniSONE 2020-06- No [id number] Take M ethodi (DELTASONE) 07-18 1205 Prednisone s t 50 mg 00:00: 00:00 50mg 13 Hospita tablet 00 :00 hours, 7 l hours, and 1 hour prior to scheduled procedure on 05/19/2021 for contrast allergy prophylaxi s. predniSONE 2020-06- No [id number] Take M ethodi (DELTASONE) 07-18 12-05 Prednisone s t 50 mg 00:00: 00:00 50mg 13 Hospita tablet 00 :00 hours, 7 l hours, and 1 hour prior to scheduled procedure on 05/19/2021 for contrast allergy prophylaxi s. predniSONE 2020-06- No [id number] Take M ethodi (DELTASONE) 07-18 12-05 Prednisone s t 50 mg 00:00: 00:00 50mg 13 Hospita tablet 00 :00 hours, 7 l hours, and 1 hour prior to scheduled procedure on 05/19/2021 for contrast allergy prophylaxi s. predniSONE 2020-06- No [id number] Take M ethodi (DELTASONE) 07-18 12-05 Prednisone s t 50 mg 00:00: 00:00 50mg 13 Hospita tablet 00 :00 hours, 7 l hours, and 1 hour prior to scheduled procedure on 05/19/2021 for contrast allergy prophylaxi s. predniSONE 2020-06- No [id number] Take M ethodi (DELTASONE) 07-18 12-05 Prednisone s t 50 mg 00:00: 00:00 50mg 13 Hospita tablet 00 :00 hours, 7 l hours, and 1 hour prior to scheduled procedure on 05/19/2021 for contrast allergy prophylaxi s. predniSONE 2020-06- No [id number] Take M ethodi (DELTASONE) 07-18 12-05 Prednisone s t 50 mg 00:00: 00:00 50mg 13 Hospita tablet 00 :00 hours, 7 l hours, and 1 hour prior to scheduled procedure on 05/19/2021 for contrast allergy prophylaxi s. predniSONE 2020-06- No [id number] Take M ethodi (DELTASONE) 07-18 12-05 Prednisone s t 50 mg 00:00: 00:00 50mg 13 Hospita tablet 00 :00 hours, 7 l hours, and 1 hour prior to scheduled procedure on 05/19/2021 for contrast allergy prophylaxi s. predniSONE 2020-06- No [id number] Take M ethodi (DELTASONE) 07-18 12-05 Prednisone s t 50 mg 00:00: 00:00 50mg 13 Hospita tablet 00 :00 hours, 7 l hours, and 1 hour prior to scheduled procedure on 05/19/2021 for contrast allergy prophylaxi s. predniSONE 2020-06- No [id number] Take M ethodi (DELTASONE) 07-18 12-05 Prednisone [...] QD Take 5 mg [facility] (TRADJENTA) 1-24 -[address] 5 mg tablet 15:20: 00:00 daily. Hos whit 30 :00 l linaGLIPtin 2020-06- No 5mg QD Take 5 mg [facility] (TRADJENTA) 1-24 -[address] 5 mg tablet 15:20: 00:00 daily. Hos whit 30 :00 l linaGLIPtin 2020-06- No 5mg QD Take 5 mg [facility] (TRADJENTA) -24 -[address] 5 mg tablet 15:20: 00:00 daily. Hos whit 30 :00 l linaGLIPtin 2020-06- No 5mg QD Take 5 mg [facility] (TRADJENTA) -24 -[address] 5 mg tablet 15:20: [...] by ity of capsule 23:08: mouth 2 [place] [address] (two) Medical times Branch daily. vitamin C 2020-06 Yes 2000mg Take 2,000 [facility] with sia 0-01 mg by ity of hips 23:08: mouth 2 [place] (VITAMIN C) (two) Medical 1,000 mg times Branch tablet daily. metoprolol 2020-06 Yes 50mg Take 50 mg U nivers tartrate 50 0-01 by mouth ity of mg tablet 23:08: daily. [place] [address] Medical Branch folic 2020-06 Yes 800mg Take 800 [facility] acid/vit B 0-01 mg by ity of complex and 23:08: mouth [place] C 36 daily. Medical (DIALYVITE Branch 800 ORAL) linagliptin 2020-06 Yes Take by Uni vers (TRADJENTA) 0-01 mouth. ity of 5 mg tablet 23:08: [address] Branch spironolact 2020-06 Yes 50mg Take 50 mg Univers one 50 mg 0-01 by mouth ity of tablet 23:08: daily. [address] Branch pravastatin 2020-06 Yes 40mg Take 40 mg Univers 40 mg 0-01 by mouth ity of tablet 23:08: daily. [address] Branch mv-mn/iron/ 2020-06 Yes 1{capsu Take 1 U nivers folic 0-01 le} capsule by ity of acid/herb 23:08: mouth [place] 190 daily. Medical (VITAMIN D3 Branch COMPLETE ORAL) SERTraline 2020-06 Yes 50mg Take 50 mg U nivers 50 mg 0-01 by mouth ity of tablet 23:08: daily. [address] Branch calcium 2020-06 Yes 667mg Take [...] mouth 2 ity of tablet 23:08: (two) [place] [address] times Medical daily. Branch divalproex 2020-06 Yes [...] ity of mg tablet 23:08: daily. [address] Branch folic 2020-06 Yes 800mg Take 800 [facility] acid/vit B 0-01 mg by ity of complex and 23:08: mouth [place] C 36 daily. Medical (DIALYVITE Branch 800 ORAL) linagliptin 2020-06 Yes Take by Uni vers (TRADJENTA) 0-01 mouth. ity of 5 mg tablet 23:08: [address] Branch spironolact 2020-06 Yes 50mg Take 50 mg Univers one 50 mg 0-01 by mouth ity of tablet 23:08: daily. [address] Branch pravastatin 2020-06 Yes 40mg Take 40 mg Univers 40 mg 0-01 by mouth ity of tablet 23:08: daily. [address] Branch mv-mn/iron/ 2020-06 Yes 1{capsu Take 1 U nivers folic 0-01 le} capsule by ity of acid/herb 23:08: mouth [place] 190 36 daily. Medical (VITAMIN D3 Branch COMPLETE ORAL) SERTraline 2020-06 Yes 50mg Take 50 mg U nivers 50 mg 0-01 by mouth ity of tablet 23:08: daily. [address] Branch calcium 2020-06 Yes 667mg Take [...] janice 811 (Same as: l 01:36: Mylicon) [place] 00 epoetin Yes 2,000 unit Mendoza janice giovanny-epbx 01-28 = 1 mL, l 1999 19:37: IV, [place] units/mL 00 Q, preservativ to be e-free given at injectable post solution Dialysis sessions, 0 Refill(s) gabapentin Yes 300 mg = 1 M emoria 300 MG Oral 8-10 cap, PO, l Capsule 19:34: Q, # [facility] naeem 00 13 cap, 0 Refill(s) amLODIPine Yes 10 mg = 1 Me moria 10 mg oral 8-10 tab, PO, l tablet 19:33: Daily, # [place] 00 30 tab, 2 Refill(s) busPIRone Yes 7.5 mg = 1 Me moria 7.5 mg oral 8-10 tab, PO, l tablet 19:33: BID, 0 [place] 00 Refill(s) buPROPion Yes 75 mg = [...] 01-27 not exceed l 09:29: 4 gm/day. [place] 00 (Same as: Tylenol) tramadol No Notes: Not Mem oria hydrochlori 01-27 to exceed l de 50 MG 09:29: 400mg/day. Her braden Oral Tablet 00 (Same As: Ultram) heparin No Notes: Memoria 01-27 porcine l 02:00: heparin Magnesium No Notes: Memori a Oxide 01-23 (Same as: l 22:54: Mag-Ox [place] 00 400) Magnesium oxide 350co=218f g elemental magnesium Dose=____m g magnesium oxide (___mg elemental magnesium) Coreg No Notes: Memoria 01-23 Give with l 02:00: food. [place] 00 (Same As: Coreg) Buspar No Notes: Memoria 01-22 (Same As: l 22:00: BuSpar) [place] 00 Fentanyl No Notes: Memoria 8-04 (Same [...] as: l Tablet 14:00: Lasix) May nn cause GI upset. Give with food or [...] oria - to exceed l 09:44: 400mg/day. Vin 00 (Same As: Ultram) Tylenol No Notes: Do Memor ia - not exceed l 09:44: 4 gm/day. Vin [...] 21:00:00 CDT, 0 heparin No Notes: Memoria - porcine l 21:00: heparin Dextrose No 12.5 gm, Memor ia 50% Syringe 01-21 25 mL, l (D50W) 20:01: Route: IVP, Drug Form: INJ, Dosing Weight 74.5, kg, PRN, PRN Blood Glucose Results, Start date: 01/21/21 15:01:00 CDT, Duration: 30 day, Stop date: 02/20/21 15:00:00 CDT, 0 Glucagon No 1 mg, Memoria 01-21 Route: IM, l 20:01: Drug form: [place] PDR/INJ, PRN, Dosing Weight 74.5, kg, PRN [...] Me moria 01-21 RT l 17:49: DOCUMENTAT ION [...] 0.9% 01-21 Same as: l 17:31: BD [place] Posiflush Sterile propofol 10 No Notes: If M emoria mg/mL 01-21 Diprivan - l (Titrate.) 17:31: change Nidia nn IV 1,000 mg 00 bottle & tubing every 12 hr Per state nursing law propofol can only be given by a nurse if patient is intubated or being intubated (unless the nurse is a CORRECTIONAL OFFICER). Same as: Diprivan midazolam No Route: IV, Me moria (ANES) 01-21 Drug form: l 17:18: SOLN, [place] 00 ONCE, Stop date: 01/21/21 12:18:00 CDT [...] 13:16: Dilaudid Flumazenil No Notes: Memor ia - (Same as: l 13:16: Romazicon) Naloxone No Notes: Memoria 8-03 Same as l 13:16: Narcan Albuterol No [...] 01-21 (Same as: l 13:16: Mylicon, Vin Phazyme, Genasyme) calcium No See Memoria acetate [...] n [XIFAXAN] 00 tab, 2 Refill(s), Pharmacy: [facility], 154.94, cm, 12/24/20 10:43:00 CDT, Height, 71.818, kg, 12/24/20 10:43:00 CDT, Weight {2 (480 ML Yes See Memoria Magnesium - Instructio l Sulfate 18:12: ns, take Jake n 0.0277 00 as MEQ/ML / directed, potassium give sulfate clenpiq if 0.0374 not MEQ/ML / covered by sodium insurance, sulfate # 1 ea, 0 0.257 Refill(s), MEQ/ML Oral Pharmacy: Solution) } [facility] [Suprep 808, Bowel Prep 154.94, [...] day, # 90 tab, 3 Refill(s), [facility], 154.94, cm, 12/24/20 10:43:00 CDT, Height, 71.818, kg, 12/24/20 10:43:00 CDT, Weight Zinc 2021-0 Yes 140 mg, [facility] 7-06 PO, Daily, l 15:54: 0 Refill(s) Elderberry 0 Yes 0 [facility] preparation 06 Refill(s) l 15:54: Buspar 0 Yes PO, BID, 0 Memor ia 7-06 Refill(s) l 15:53: Dialyvite 0 Yes 0 [facility] 5000 7-06 Refill(s) l 15:53: busPIRone 0 Yes 7.5mg Take 7.5 Uni vers 7.5 mg 6-19 mg by ity of tablet 00:00: mouth 2 [place] 00 (two) Medical times Branch daily. traZODone Yes 200mg QD Take 200 UT [...] each day tablet in the morning. metoprolol 0 Yes 1{tbl} QD Take 1 UT succinate 5-25 tablet by Healt h XL 00:00: mouth 1 (Toprol-XL) 00 (one) time 50 MG 24 hr each day. tablet ascorbic 0 Yes 500mg Q.[id number] Take 500 UT acid 5-15 [id number] mg by Health (Vitamin C) 00:00: 3D mouth 3 500 MG 00 (three) tablet times a day. zinc Yes DAILY [facility] sulfate 50 5-10 ity of mg zinc 00:00: [place] (220 mg) 00 Medical capsule Branch sucralfate Yes 1{tbl} QD Take 1 UT (Carafate) 5-10 tablet by [facility] th 1 g tablet 00:00: mouth 1 00 (one) time each day. ondansetron Yes 4mg Take 4 mg U nivers 4 mg 4-13 by mouth ity of disintegrat 00:00[place] tablet 00 [facility] GLIPIZIDE 5 Yes [id number] TAKE 1 Univers mg tablet 4-06 TABLET [...] by ity o f 00:00: mouth at [place] 00 bedtime. Medical Branch doxazosin 4 Yes 4mg Take 1 Univ ers mg tablet 1-07 tablet by ity o f 00:00: mouth at [place] 00 bedtime. Medical Branch glipiZIDE 5 2019-06- No [id number] 5mg Take 1 [facility] mg tablet 1-11 [...] [place] tablet 00 daily. Medical Branch calcium 2019- Yes 667mg Take 667 Unive rs acetate,domingo 9-15 mg by ity of sphat bind, 00:00: [place] 667 mg 00 Medical capsule [facility] traZODone Yes 150mg Take 150 Uni vers 150 mg 8-13 mg by ity of tablet 00:00: mouth at [place] 00 bedtime. Medical Branch traZODone Yes 150mg Take 150 Uni vers 150 mg 8-13 mg by ity of tablet 00:00: mouth at [place] 00 bedtime. Medical Branch erythromyci 2020- No [id number] .5[in_u Place 0.5 Univers n 5 mg/gram [...] l 59 Center hydrALAZINE 2017- Yes 100mg Q.07016127 Take [address] [facility] (APRESOLINE 7-20 [id number] mg by L ukes ) 100 MG 15:20: 3D mouth 3 Medica l tablet 59 (three) Center times daily. magnesium 2017- Yes 400mg QD Take [address] [facility] oxide 7-20 mg by [facility] (MAG-OX) 15:20: mouth Medical 400 mg 59 daily. Center tablet metoclopram 2017-0 Yes 10mg Q.22001147 Take [address] [facility] gadiel HCl 7-20 [id number] by mouth 3 [facility] (REGLAN) 10 15:20: [...] l 59 Center hydrALAZINE 2017-0 Yes 100mg Q.[id number] Take [address] [facility] (APRESOLINE 7-20 [id number] mg by L ukes ) 100 MG 15:20: 3D mouth 3 Medica l tablet 59 (three) Center times daily. magnesium 2017-0 Yes 400mg QD Take [address] [facility] oxide 7-20 mg by [facility] (MAG-OX) 15:20: mouth Medical 400 mg 59 daily. Center tablet metoclopram 2017-0 Yes 10mg Q.[id number] Take [address] [facility] gadiel HCl 7-20 [id number] by mouth 3 [facility] (REGLAN) 10 15:20: [...] l 59 Center hydrALAZINE 2017-0 Yes 100mg Q.[id number] Take [address] [facility] [address] (APRESOLINE 7-20 [id number] mg by L ukes ) 100 MG 15:20: 3D mouth 3 Medica l tablet 59 (three) Center times daily. magnesium 2017-0 Yes 400mg QD Take [address] [facility] [address] oxide 7-20 mg by [facility] (MAG-OX) 15:20: mouth Medical 400 mg 59 daily. Center tablet metoclopram 2017-0 Yes 10mg Q.39555617 Take [address] [facility] gadiel HCl 7-20 [id number] by mouth 3 [facility] (REGLAN) 10 15:20: [...] l 59 Center hydrALAZINE 2017-0 Yes 100mg Q.[id number] Take [address] [facility] [address] (APRESOLINE 7-20 [id number] mg by L ukes ) 100 MG 15:20: 3D mouth 3 Medica l tablet 59 (three) Center times daily. magnesium 2017-0 Yes 400mg QD Take [address] [facility] [address] oxide 7-20 mg by [facility] (MAG-OX) 15:20: mouth Medical 400 mg 59 daily. Center tablet metoclopram 2017-0 Yes 10mg Q.[id number] Take [address] [facility] gadiel HCl 7-20 [id number] by mouth 3 [facility] (REGLAN) 10 15:20: [...] l 59 Center hydrALAZINE 2017-0 Yes 100mg Q.[id number] Take [address] [facility] [address] (APRESOLINE 7-20 [id number] mg by L ukes ) 100 MG 15:20: 3D mouth 3 Medica l tablet 59 (three) Center times daily. magnesium 2017-0 Yes 400mg QD Take [address] [facility] [address] oxide 7-20 mg by [facility] (MAG-OX) 15:20: mouth Medical 400 mg 59 daily. Center tablet metoclopram 2017-0 Yes 10mg Q.26910380 Take [address] [facility] gadiel HCl 7-20 [id number] by mouth 3 [facility] (REGLAN) 10 15:20: [...] l 59 Center hydrALAZINE 2017-0 Yes 100mg Q.89041134 Take [address] [facility] [address] (APRESOLINE 7-20 [id number] mg by L ukes ) 100 MG 15:20: 3D mouth 3 Medica l tablet 59 (three) Center times daily. magnesium 2017-0 Yes 400mg QD Take [address] [facility] [address] oxide 7-20 mg [facility] (MAG-OX) 15:20: mouth Medical 400 mg 59 daily. Center tablet metoclopram 2017-0 Yes 10mg Q.31713260 Take [address] [facility] gadiel HCl 7-20 [id number] by mouth 3 [facility] (REGLAN) 10 15:20: [...] l 59 Center hydrALAZINE 2017-0 Yes 100mg Q.[id number] Take [address] [facility] [address] (APRESOLINE 7-20 [id number] mg by L ukes ) 100 MG 15:20: 3D mouth 3 Medica l tablet 59 (three) Center times daily. magnesium 2017-0 Yes 400mg QD Take [address] [facility] [address] oxide 7-20 mg by [facility] (MAG-OX) 15:20: mouth Medical 400 mg 59 daily. Center tablet metoclopram 2017-0 Yes 10mg Q.64647458 Take [address] [facility] gadiel HCl 7-20 [id number] by mouth 3 [facility] (REGLAN) 10 15:20: [...] l 59 Center hydrALAZINE 2017-0 Yes 100mg Q.[id number] Take [address] [facility] [address] (APRESOLINE 7-20 [id number] mg by L ukes ) 100 MG 15:20: 3D mouth 3 Medica l tablet 59 (three) Center times daily. magnesium 2017-0 Yes 400mg QD Take [address] [facility] [address] oxide 7-20 mg by [facility] (MAG-OX) 15:20: mouth Medical 400 mg 59 daily. Center tablet metoclopram 2017-0 Yes 10mg Q.[id number] Take [address] [facility] gadiel HCl 7-20 [id number] by mouth 3 [facility] (REGLAN) 10 15:20: [...] l 59 Center hydrALAZINE 2017-0 Yes 100mg Q.[id number] Take [address] [facility] [address] (APRESOLINE 7-20 [id number] mg by L ukes ) 100 MG 15:20: 3D mouth 3 Medica l tablet 59 (three) Center times daily. magnesium 2017-0 Yes 400mg QD Take [address] [facility] [address] oxide 7-20 mg by [facility] (MAG-OX) 15:20: mouth Medical 400 mg 59 daily. Center tablet metoclopram 2017-0 Yes 10mg Q.27699222 Take [address] [facility] gadiel HCl 7-20 [id number] by mouth 3 [facility] (REGLAN) 10 15:20: [...] l 59 Center hydrALAZINE 2017- Yes 100mg Q.[id number] Take [address] [facility] [address] (APRESOLINE 7-20 [id number] mg by Misbah jc ) 100 MG 15:20: 3D mouth 3 Medica l tablet 59 (three) Center times daily. magnesium 2017- Yes 400mg QD Take [address] [facility] [address] oxide 7-20 mg by [facility] (MAG-OX) 15:20: mouth Medical 400 mg 59 daily. Center tablet metoclopram 2017- Yes 10mg Q.60589579 Take [address] [facility] gadiel HCl 7-20 [id number] by mouth 3 [facility] (REGLAN) 10 15:20: [...] l 59 Center hydrALAZINE 2017-0 Yes 100mg Q.[id number] Take [address] [facility] [address] (APRESOLINE 7-20 [id number] mg by L ukes ) 100 MG 15:20: 3D mouth 3 Medica l tablet 59 (three) Center times daily. magnesium 2017-0 Yes 400mg QD Take [address] oxide 7-20 mg by [facility] (MAG-OX) 15:20: mouth Medical 400 mg 59 daily. 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 Give with food or milk. Hydralazine No Notes: Mendoza janice 2-08 (Same as: l 06:05: Apresoline Vin 00 ) Push over 5 minutes sodium 2016-0 No 1,000 mL, Memori a chloride 2-05 Rate: 125 l 0.9% 1000 18:26: ml/hr, Jake n ml INJ 00 Infuse 1,000 mL over: 8 hr, Route: IV, Dosing Weight 92.273 kg, Total Volume: 1,000, Start date: 07/26/16 12:26:00 CLINICAL LABORATORY SERVICE TEACHER, Duration: 30 day, Stop date: 08/25/16 12:25:00 CLINICAL LABORATORY SERVICE TEACHER Sodium 2016- No 500 mL, Memoria Chloride 2-05 500 ml/hr, l 0.154 13:30: Infuse [place] MEQ/ML 00 Over: 1 Injectable hr, Route: Solution IV, 500, Drug form: INJ, ONCE, Priority: STAT, Dosing Weight 92.273 kg, Start date: 07/26/16 7:30:00 CLINICAL LABORATORY SERVICE TEACHER, Duration: 1 doses or times, Stop date: 07/26/16 7:30:00 CLINICAL LABORATORY SERVICE TEACHER Insulin No 60 units) Mendoza janice regular [...] Roll in l Human 05:42: palms of [place] 00 hands gently; Do not shake vigorously [...] Wasted: ___ mg Tylenol No Notes: Max Mednoza janice 2-03 acetaminop l 21:52: hen = 4000mg/day (4 gm/day). (Same as: Tylenol) Bupropion No 150 mg, 1 Mem oria 2-03 tab, l 15:00: Route: PO, Drug form: ERTAB, Daily, Dosing Weight 92.273, kg, Start date: 07/24/16 9:00:00 CLINICAL LABORATORY SERVICE TEACHER, Duration: 30 day, Stop date: 08/22/16 9:00:00 CLINICAL LABORATORY SERVICE TEACHER 24 HR No Notes: Memoria Divalproex 2-03 [...] Memoria 2-03 (Same as: l 15:00: Lasix) [place] 00 MEDICATION WASTE Product Size: 40 mg Product Wasted: ___ mg Zoloft No Notes: Memoria 2-03 (Same as: l 15:00: Zoloft) [place] Protonix No Notes: Memoria 2-03 Tablet l 15:00: should not [place] 00 be chewed or crushed. (Same as: Protonix) metoprolol No 100 mg, 2 Me moria extended 2-03 tab, l release 15:00: Route: PO, Herm Drug form: ERTAB, Daily, Start date: 07/24/16 9:00:00 CLINICAL LABORATORY SERVICE TEACHER, Duration: 30 day, Stop date: 08/22/16 9:00:00 CLINICAL LABORATORY SERVICE TEACHER Insulin No Notes: Memoria Glargine 2-03 Same [...] 11:28: Dilaudid Insulin, No Notes: Memoria Aspart, - Roll in l Human 08:40: palms of [...] Blood Glucose Results, Start date: 07/24/16 2:40:00 CLINICAL LABORATORY SERVICE TEACHER, Duration: 30 day, Stop date: 08/23/16 2:39:00 CLINICAL LABORATORY SERVICE TEACHER Dextrose No 25 gm, 50 Mendoza janice 50% Syringe 2-03 mL, Route: l 08:40: IVP, Drug Form: INJ, Dosing Weight 92.273, kg, PRN, PRN Blood Glucose Results, Start date: 07/24/16 2:40:00 CLINICAL LABORATORY SERVICE TEACHER, Duration: 30 day, Stop date: 08/23/16 2:39:00 CLINICAL LABORATORY SERVICE TEACHER Docusate No Notes: Memoria 2- (Same as: [...] 07-24 (Same as: l / 04:09: Duoneb) [place] Ipratropium 00 [place] 0.167 MG/ML Inhalant Solution [DuoNeb] Furosemide 2015-06 Yes 80 mg = 2 Me moria 40 MG Oral 2-26 tab, PO, l Tablet 16:34: BID, # 120 Nidia nn 00 tab, 0 Refill(s) atorvastati 2015-06 Yes 40 mg = 1 M emoria n 40 mg 2-26 tab, PO, l oral tablet 16:34: Bedtime, # [place] 00 30 tab, 0 Refill(s) Insulin 2015-06 [...] tab, PO, l Tablet 16:34: Daily, # [place] 00 30 tab, 0 Refill(s) Hydroxyzine 2015-06 [...] Oxide 2-24 (Same as: l 13:36: Mag-Ox [place] 00 400) Magnesium oxide 978gc=300b g elemental magnesium Dose=____m g magnesium oxide (___mg elemental magnesium) Magnesium 2015-06 No Notes: Memori a Oxide 2-24 (Same as: l 09:47: Mag-Ox [place] 00 400) Magnesium oxide 609tp=770h g elemental magnesium Dose=____m g magnesium oxide [...] Memoria 2-24 (Same as: l 00:00: Norvasc) [place] 00 Insulin 2015-06 No Notes: Memoria Glargine [...] tab, PO, l tablet 15:35: Daily, 0 [place] 00 Refill(s) Sertraline 2015-06 Yes 200 mg = 2 M emoria 100 MG Oral 2-23 tab, PO, l Tablet 15:27: Daily, 0 [place] [Zoloft] 00 Refill(s) pantoprazol 2015-06 Yes 40 [...] Weight 86.364, kg, Start date: 06/11/16 9:00:00 CLINICAL [employer]ORATORY SERVICE TEACHER, Duration: 30 day, Stop date: 07/10/16 9:00:00 CLINICAL LABORATORY SERVICE TEACHER Insulin 2015-06 No Notes: Memoria Glargine 2-22 [...] sodium, 2-22 porcine l porcine 06:00: heparin [place] 2500 UNT/ML 00 Injectable Solution Albuterol 2015-06 No Notes: Memori a 0.833 MG/ML - (Same as: l / 03:00: Duoneb) Vin Ipratropium 00 [place] 0.167 MG/ML Inhalant Solution [DuoNeb] gabapentin 2015-06 No 300 mg, Mendoza janice 300 MG Oral - Route: PO, l Capsule 03:00: Drug form: Herm naeem 00 CAP, Q12H, Dosing Weight 86.364, kg, (CrCl 30 - 59 ml/min), Start date: 06/10/16 21:00:00 CLINICAL [employer]ORATORY SERVICE TEACHER, Duration: 30 day, Stop date: 07/10/16 9:00:00 CLINICAL LABORATORY SERVICE TEACHER divalproex 2015-06 No Notes: Memor ia sodium 2-22 (Same as: l 03:00: Depakote Vin 00 ER) Once daily dosing; indicated for migraines. Divalproex sodium extended-r elease tab. Do not chew or crush. "Do Not Crush" Losartan 2015-06 No Notes: Memoria 2-22 (Same as: l 03:00: Cozaar) [place] 00 Insulin, 2015-06 No Notes: Memoria Aspart, [...] Syringe 2-22 25 mL, l 00:50: Route: [place] 00 IVP, Drug Form: INJ, Dosing Weight 86.364, kg, PRN, PRN Blood Glucose Results, Start date: 06/10/16 18:50:00 CLINICAL [employer]ORATORY SERVICE TEACHER, Duration: 30 day, Stop date: 07/10/16 18:49:00 CLINICAL LABORATORY SERVICE TEACHER Glucagon 2015-06 No 1 mg, Memoria 2-22 Route: IM, l 00:50: Drug form: Vin PDR/INJ, PRN, Dosing Weight 86.364, kg, PRN Blood Glucose Results, Start date: 06/10/16 18:50:00 CLINICAL LABORATORY SERVICE TEACHER, Duration: 30 day, Stop date: 07/10/16 18:49:00 CLINICAL LABORATORY SERVICE TEACHER Hydralazine 2015-06 No Notes: Mendoza janice 2-22 [...] Weight 86.364, kg, Start date: 06/10/16 18:06:00 CLINICAL LABORATORY SERVICE TEACHER, Stop date: 06/10/16 18:06:00 CLINICAL LABORATORY SERVICE TEACHER hydrOXYzine 2015-06 No Notes: Mendoza janice pamoate -21 (Same as: l 23:00: Vistaril) Furosemide 2015-06 No 60 mg, Memor ia 2-21 Route: l 22:32: IVP, Drug form: INJ, ONCE, Dosing Weight 86.364, kg, Start date: 06/10/16 16:32:00 CLINICAL LABORATORY SERVICE TEACHER, Stop date: 06/10/16 16:32:00 CLINICAL LABORATORY SERVICE TEACHER Lasix 2015-06 No Notes: Memoria 2-21 (Same as: l 17:22: Lasix) MEDICATION WASTE Product Size: 40 mg Product Wasted: _0__ mg Albuterol 2015-06 No Notes: Memori a 0.833 MG/ML 2-21 (Same as: l 17:22: Duoneb) Ipratropium 00 [place] 0.167 MG/ML Inhalant Solution [DuoNeb] Promethazin Yes 25 mg = 1 M emoria e 1-06 supp, [place], l Hydrochlori 14:45: Q6H, Jake gonzalez de [...] Rate: 125 l 0.9% IV 04:10: ml/hr, [place] 1,000 mL 00 Infuse over: 8 hr, [...] Marx Rate: 500 l 0.9% 23:45: ml/hr, [place] (Bolus) IV 00 Infuse 500 mL over: [...] 17:19:00, Stop date: 03/14/12 17:19:00 pantoprazol No Yordan Murillo 40 mg, Memoria e 03-14 Marx Route: l 22:19: IVP, ONCE, Dosing Weight 58.636, kg, For IV push reconstitu te with 10 ml 0.9% sodium chloride and push over at least 3 minutes, Priority: STAT, Start date: 03/14/12 17:19:00, Stop date: 03/14/12 17:19:00 Sodium 2011- No Hung Murillo 500 mL, Me moria Chloride 03-14 Marx Rate: l 0.9% 22:19: 1,000 [place] (Bolus) IV 00 ml/hr, 500 mL Infuse [...] insulin No Blake 10 unit, 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 6-11 Deangelo 0.1 mL, l H [...] 2011-0 No Blake 14 unit, 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 6-10 Deangelo 0.14 mL, l H 14:00: Route: Vin 00 SUB-Q, Drug form: INJ, Daily, Start date: 11/29/11 9:00:00, Duration: 30 day, Stop date: 12/28/11 9:00:00 Insulin 2011-0 No Blake 10 unit, Mem oria regular 6-10 Deangelo 0.1 mL, l 14:00: Brisa Route: [place] 00 SUB-Q, Drug form: SOLN, Daily, Start [...] Deangelo 0.1 mL, l 06:30: Brisa Route: [place] 00 SUB-Q, Drug form: SOLN, TID-Before Meals, [...] l IV 1,000 mL 06:29: Brisa ml/hr, [place] 00 Infuse over: 5 hr, Route: IV, [...] 1,000 mL 11-27 Rate: l 22:48: 1,000 [place] 00 ml/hr, Infuse over: 1 hr, Route: [...] 6-09 mL, Route: l 20:35: IVP, Drug [place] 00 form: INJ, ONCE, Priority: STAT, Start date: 11/28/11 15:35:00, Stop date: 11/28/11 15:35:00 Novolin R 2011-0 Yes Hughes-Jason 8 unit, M emoria 100 3-30 [place] SUB-Q, l units/mL 17:47: Eunice Q12H, 2 He rmann injectable 42 Pu vial, solution Substituti on Allowed, SOLN Novolin N Yes Hughes-Jason 10 unit, Memoria 100 3-30 [place] SUB-Q, l units/mL 17:46: Eunice Bedtime, H ermann subcutaneou 27 Pu 10 ml, s injection Substituti on Allowed, SUSP Novolin N Yes Hughes-Jason 14 unit, Memoria 100 3-30 [place] SUB-Q, l units/mL 17:44: Eunice QAM, 1 Her braden subcutaneou 37 Pu vial, s injection Substituti on Allowed, SUSP magnesium No Hughes-Jason 400 mg, 1 Memoria oxide 3-30 [place] tab, l 14:55: [place] Route: PO, Her braden 00 Pu Drug form: TAB, ONCE, Priority: STAT, Start date: 09/18/11 9:55:00, Stop date: 09/18/11 9:55:00 Insulin 2011-0 No Hughes-Jason 8 unit, Mem oria regular 3-30 [place] 0.08 mL, l 14:22: [place] Route: Vin 00 Pu SUB-Q, Drug form: SOLN, ONCE, Priority: STAT, Start date: 09/18/11 9:22:00, Stop date: 09/18/11 9:22:00 Lactated 2011- No Hughes-Jason 1,000 mL, Memoria Ringers 3-30 [place] Rate: l (Bolus) IV 14:16: [place] 1,000 He rmann 1,000 mL 00 Pu ml/hr, Infuse over: 1 hr, Route: IV, Total Volume: 1,000, [place] Dose, Priority: STAT, Start date: 09/18/11 9:16:00, Duration: 1 doses or times, Stop date: 09/18/11 10:15:00 Sodium 2011-0 No Hughes-Jason 1,000 mL, Me moria Chloride 3-30 [place] Rate: l 0.9% 14:06: [place] 1,000 Vin (Bolus) IV 00 Pu ml/hr, 1000 mL Infuse over: 1 hr, Route: IV, kg, Total Volume: 1,000, [place] Dose, Priority: STAT, Start date: 09/18/11 9:06:00, Duration: 1 doses or times, Stop date: 09/18/11 10:05:00 sulfamethox 2011- Yes Substituti Memoria azole 3-30 on Allowed l 14:04: [place] 58 Sodium 2011- No Hughes-Jason 1,000 mL, Me moria Chloride 3-30 [place] Rate: l 0.9% 13:56: [place] 1,000 Vin (Bolus) IV 00 Pu ml/hr, 1000 mL Infuse over: 1 hr, Route: IV, kg, Total Volume: 1,000, [place] Dose, Priority: STAT, Start date: 09/18/11 8:56:00, Duration: 1 doses or times, Stop date: 09/18/11 9:55:00 clindamycin No Eber L 300 mg, 2 Memoria 3-21 Anabelle cap, l 21:00: Route: PO, [place] 00 Drug form: CAP, Q8H, Start date: 09/09/11 16:00:00, Duration: 30 day, Stop date: 10/09/11 8:00:00 Colace 100 2011- Yes Luna 100 mg, 1 Memoria mg oral 3-21 Amelia cap, PO, l capsule 18:47: Zeeshan BID, 60 Her braden 19 cap, Substituti on Allowed, CAP clindamycin Yes [place] 300 mg, 2 Memoria 150 mg oral 3-21 Amelia cap, PO, l capsule 18:46: [place] Q8H, 30 Her braden 55 cap, Substituti on Allowed, CAP [place] Yes Luna 1 tab, PO, Memoria 10/325 oral 3-21 Amelia Q4H, PRN, l tablet 18:46: [place] 30 tab, Herm naeem 36 Pain, Substituti on Allowed, Maintenanc e, TAB [place] 2012-0 No Hollie Donavan 1 tab, Mendoza [...] 3-19 Omidvar tab, l 15:30: Route: PO, [place] 00 Drug form: TAB, Daily, Start date: [...] moria 3-19 Josefina 0.1 mL, l 14:19: [place] Route: Vin 00 IVP, Drug form: INJ, Q2MIN, PRN Narcotic Reversal, Start date: 09/07/11 9:19:00, Duration: 8 doses or times, Stop date: Limited # of times ondansetron 0 No Gayle 4 mg, 2 Memoria 3-19 Josefina mL, Route: l 14:19: Gavin IVP, Drug Jake n 00 form: INJ, ONCE, PRN Nausea & Vomiting, Start date: 09/07/11 9:19:00 hydromorpho 2011-0 No Gayle 0.5 mg, Memoria ne 3-19 Josefina 0.25 mL, l 14:19: Gavin Route: [place] 00 IVP, Drug form: INJ, Q5Min, PRN Pain Score 4-6, Start date: 09/07/11 9:19:00, Duration: 5 doses or times, Stop date: Limited # of times acetaminoph No Gayle 15 mL, M emoria en-hydrocod 09-06 Josefina Route: PO, l one 325 14:19: [place] Drug Form: He rmann mg-10 mg/15 00 SOLN, Q4H, mL oral PRN Pain solution Score 4-6, Start date: 09/07/11 9:19:00, Duration: 1 day, Stop date: 09/08/11 8:00:00 Lactated No [place] 1,000 mL, Me moria Ringers IV 09-06 Omidvar Rate: 125 l 1,000 mL 14:06: ml/hr, [place] 00 Infuse over: 8 hr, Route: IV, Dosing Weight 68.182 kg, Total Volume: 1,000, Start date: 09/07/11 9:06:00, Duration: 30 day, Stop date: 10/07/11 9:05:00 clindamycin No Maximo R 600 mg, Memoria 09-06 Arias Route: l 13:31: IVPB, [place] 00 ONCE, Start date: 09/07/11 8:31:00, Stop [...] 3-17 Wong tab, l 04:00: Route: PO, [place] 00 Drug form: ECTAB, Daily, PRN Constipati [...] Duration: 30 day, Stop date: 10/04/11 18:10:00 [place] 2011-0 No Mahammad 1 tab, Memori a [...] Kavon mL, Route: l 14:50: IVP, Drug [place] 00 form: INJ, ONCE, PRN Nausea & [...] Duration: 30 day, Stop date: 10/04/11 9:49:00 [place] 2011-0 No [place] 1 tab, Memoria 10/325 [...] 3-16 Kavon 0.25 mL, l 13:37: Route: [place] 00 IVP, Drug form: INJ, Q5Min, PRN [...] date: 09/03/11 8:39:00, Stop date: 09/03/11 8:39:00 [place] 5/325 2011-0 No Rosalino 1 tab, M [...] Duration: 30 day, Stop date: 10/02/11 9:00:00 [place] 5/325 2011-0 No Rosalino 1 tab, M [...] 3-14 Movva mL, Route: l 14:00: SUB-Q, [place] 00 Drug form: INJ, Daily, Start date: 09/02/11 9:00:00, Duration: 30 day, Stop date: 10/01/11 9:00:00 vancomycin 2011-0 No Eber L 1 gm, Memoria 3-14 Anabelle Route: l 14:00: IVPB, Drug form: INJ, [id number], Start date: 09/02/11 9:00:00, Duration: 30 day, Stop date: 10/01/11 21:00:00 clindamycin 2011-0 No Eber L 600 mg, 4 Memoria (SCIP) 3-14 Anabelle mL, Route: l 10:00: IVPB, Vin [id number], Start date: 09/02/11 5:00:00, Duration: 3 doses or times, Stop date: 09/02/11 21:00:00 clindamycin 2011-0 No Yury 600 mg, 4 Memoria (SCIP) 3-14 Brandon mL, Route: l 04:00: Connally IVPB, [place] 00 [id number], Start date: 09/01/11 23:00:00, Duration: 3 doses or times, Stop date: 09/02/11 15:00:00 insulin 2011-0 No [place] 15 unit, Mendoza janice 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 3-14 Omidvar 0.15 mL, l H [...] 3-14 Barbra Route: l 01:07: Feliciano IVP, [place] 00 Q5Min, PRN Elevated BP, Start date: [...] Barbra Route: l 01:07: Feliciano IVP, PRN, [place] 00 PRN Benzodiaze pine Reversal, Initial dose, Start date: 09/01/11 20:07:00, Duration: 30 day, Stop date: 10/01/11 20:06:00 ondansetron No Mariaelena-Corea 4 mg, Memoria 3-14 Barbra Route: l 01:07: Feliciano IVP, ONCE, Vin 00 PRN Nausea & Vomiting, Start date: 09/01/11 20:07:00 vancomycin No Mele 1 gm, Mem oria 3-14 Gauvain Route: l 01:00: IVPB, Drug [place] 00 form: INJ, [id number], Start date: 09/01/11 20:00:00, Duration: 30 day, [...] Route: l 00:00: IVPB, Drug form: INJ, [id number], Start date: 09/01/11 19:00:00, Duration: 30 day, [...] mL, Me moria Ringers IV 3-13 Manuel [place] Rate: 100 l 1,000 mL 19:03: ml/hr, [place] 00 Infuse over: 10 hr, Route: IV, [...] L 1,000 mL, M emoria Chloride 3- [place] Rate: l 0.9% 10:41: 1,000 [place] (Bolus) IV 00 ml/hr, 1000 mL Infuse over: 1 hr, Route: IV, Dosing Weight 68.182 kg, Total Volume: 1,000, [place] Dose, Priority: STAT, Start date: 09/01/11 5:41:00, Duration: 1 doses or times, Stop date: 09/01/11 6:40:00 ondansetron 2011-0 No Bee L 4 mg, Memoria 3-13 [place] Route: l 09:06: IVP, Drug [place] 00 form: INJ, ONCE, Priority: STAT, Start date: 09/01/11 4:06:00, Stop date: 09/01/11 4:06:00 morphine 2011-0 No Bee L 4 mg, Mem oria Sulfate 3- [place] Route: l 09:06: IVP, ONCE, Vin 00 Priority: STAT, Start date: 09/01/11 4:06:00, Stop date: 09/01/11 4:06:00 Sodium 2011-0 No Bee L 1,000 mL, M emoria Chloride 3-13 [place] Rate: l 0.9% 08:42: 1,000 [place] (Bolus) IV 00 ml/hr, 1000 mL Infuse over: 1 hr, Route: IV, Dosing Weight 68.182 kg, Total Volume: 1,000, [place] Dose, Priority: STAT, Start date: 09/01/11 3:42:00, Duration: 1 doses or times, Stop date: 09/01/11 4:41:00 Insulin 2011- No Bee L 8 unit, Me moria regular 08-31 [place] 0.08 mL, l 08:30: Route: Vin 00 IVP, Drug form: SOLN, ONCE, Priority: STAT, Start date: 09/01/11 3:30:00, Stop date: 09/01/11 3:30:00 Sodium 2011- No Bee L 1,000 mL, M emoria Chloride 08-31 [place] Rate: l 0.9% 07:29: 1,000 Vin (Bolus) IV 00 ml/hr, 1,000 mL Infuse over: 1 hr, Route: IV, Dosing Weight 68.182 kg, Total Volume: 1,000, Bolus Dose, Priority: STAT, Start date: 09/01/11 2:29:00, Duration: 1 doses or times, Stop date: 09/01/11 3:28:00 potassium 2011- No Brooks Noam 40 mEq, 2 Memoria chloride 3-04 Akmal tab, l 15:00: Route: PO, [place] 00 Drug form: ERTAB, BID, Start date: [...] Akmal SUB-Q, l units/mL 14:42: BID, 3 [place] subcutaneou 04 vial, 3, s injection 3, [...] 3-04 Akmal Route: IV, l 12:29: ONCE, [place] 00 Start date: 08/23/11 6:29:00, Stop date: [...] Rodriguez 10 mL, l 16:25: Ahmed Route: [place] 00 IVPB, ONCE, Start date: 08/22/11 10:25:00, [...] Akmal mL, Route: l 13:26: IVPB, Drug [place] 00 form: INJ, ONCE, Total dose = [...] 3-02 Akmal tab, l 15:00: Route: PO, [place] Drug form: TAB, Daily, Start date: 08/21/11 [...] 2011-0 No Yury 10 unit, 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 - Gato Route: l H 16:00: [place] SUB-Q, Nidia nn 00 ONCE, Start date: 08/20/11 10:00:00, Stop date: 08/20/11 10:00:00 trazodone 2011- Yes 200 mg, 2 Mem oria 100 mg oral 3-01 tab, PO, l tablet 15:37: Bedtime, [place] 27 90 tab, Substituti on Allowed, TAB benztropine Yes 1 mg, 1 Mem oria 1 mg oral 3- tab, PO, l tablet 15:35: BID, 60 [place] 25 tab, Substituti on Allowed, TAB Geodon 60 Yes 120 mg, 2 Mem oria mg oral 3- cap, PO, l capsule 15:35: Bedtime, Jake n 12 60 cap, Substituti on Allowed, CAP insulin No Yury 10 unit, 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 08-19 Gato Route: l H 15:00: [...] Allowed insulin No 10 unit, Memori a 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 08-19 SUB-Q, l H 09:26: BID, Vin [...] 2011- No Yury 18 unit, 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 - Gato 0.18 mL, l H 08:58: Rivero Route: Nidia nn SUB-Q, Drug form: INJ, Q12H, Start date: 08/20/11 2:58:00, Stop date: 09/18/11 21:00:00 insulin 2011- No Yury 2 unit, Mendoza janice aspart 3 [place] 0.02 mL, l 08:48: Rivero Route: [...] l 08:48: Rivero IVP, Drug He rm 00 Form: [...] Dextrose No Yury 25 gm, 50 M [facility] 50% Syringe 08-19 Gato ml, Route: l 08:46: Rivero IVP, Drug He rmann 00 Form: INJ, PRN, PRN Blood Glucose Results, Start date: 08/20/11 2:46:00, Duration: 30 day, Stop date: 09/19/11 3:45:00 ondansetron No Hughes-Jason 4 mg, [facility] 08-19 Gattman Route: l 07:42: Dawson IVP, Drug Herm naeem 00 Pu form: INJ, ONCE, Priority: STAT, Start date: 08/20/11 1:42:00, Stop date: 08/20/11 1:42:00 GI cocktail No Hughes-Jason 30 ml, Memoria 08-19 [place]attman Route: PO, l 05:12: Dawson Drug Form: Her braden 00 Pu SUSP, ONCE, STAT, Start date: 08/19/11 23:12:00, Stop date: 08/19/11 23:12:00 ondansetron No Hughes-Jason 4 mg, [facility] 08-19 [place]att[place] Route: PO, l 05:10: Eunice Drug form: Her braden 00 Pu TABDIS, ONCE, Priority: STAT, Start date: 08/19/11 23:10:00, Stop date: 08/19/11 23:10:00 Lactated 2011- No Hughes-Jason 1,000 mL, Memoria Ringers 08-19 Gattman Rate: l (Bolus) IV 05:10: Eunice 1,000 He rmann 1000 mL 00 Pu ml/hr, Infuse over: 1 hr, Route: IV, Total Volume: 1,000, Bolus Dose, Priority: STAT, Start date: 08/19/11 23:10:00, Duration: 1 doses or times, Stop date: 08/20/11 0:09:00 Insulin No Hughes-Jason 7 unit, Mem oria regular 08-19 Gattman 0.07 mL, l 04:15: Eunice Route: Vin 00 Pu SUB-Q, Drug form: SOLN, ONCE, Priority: STAT, Start date: 08/19/11 22:15:00, Stop date: 08/19/11 22:15:00 Geodon 60 2011-0 No Yury 60 mg, 1 M emoria mg oral 2- Gato cap, PO, l capsule 23:24: Rivero BID, 180 [place] 43 cap, Substituti on Allowed, CAP trazodone [...] 2020-02-20 Completed [facility] Vaccine 00:00:00 [facility] Influenza Virus 2020-02-20 Completed Universit [facility] of Vaccine 00:00:00 [facility] TDAP (ADACEL) VACCINE 2019-07-25 Completed Uni versity of 00:00:00 [facility] Meningococcal B, OMV 2019-07-25 Completed Univ ersity of 00:00:00 [facility] Meningococcal 2019-07-25 Completed University of Polysaccharide 00:00:00 [facility] tawnya (groups A, C, Y and Branc h W-135) conjugate vaccine (MCV4P) TDAP (ADACEL) VACCINE 2019-07-25 Completed Uni versity of 00:00:00 [facility] Meningococcal B, OMV 2019-07-25 Completed Univ ersity of 00:00:00 [facility] Meningococcal 2019-07-25 Completed University of Polysaccharide 00:00:00 [facility] tawnya (groups A, C, Y and Branc h W-135) conjugate vaccine (MCV4P) Influenza Virus 2019-02-27 Completed Universit y of Vaccine Quad .5 mL IM 00:00:00 [facility] 6[facility] [place] [facility] Influenza Virus 2019-02-27 Completed [facility]it [facility] of Vaccine Quad .5 mL IM 00:00:00 [facility]jinder [facility] 6[facility] hepatitis B vaccine 2018-04-07 Completed Memor ial [place] 00:00:00 influenza virus 2018-03-29 [facility]00 hepatitis B vaccine 2017-11-26 Completed Memor ial Vin 00:00:00 influenza virus 2017-10-25 [facility] inactivated 00:00:00 pneumococcal 2017-10-25 Completed [facility] 23-valent vaccine 00:00:00 Influenza Virus 2017-06-22 Completed Universit y of Vaccine Quad IM 3+ 00:00:00 [facility] Influenza Virus 2017-06-22 Completed [facility]it y of Vaccine Quad IM 3+ 00:00:00 [facility] Influenza Virus 2016-04-02 Completed [facility]it y of Vaccine Quad IM 3+ 00:00:00 [facility] Influenza Virus 2016-04-02 Completed [facility]it y of Vaccine Quad IM 3+ 00:00:00 [facility] Influenza Virus 2015-10-28 Completed [facility]it y of Vaccine Quad IM 3+ 00:00:00 [facility] Influenza Virus 2015-10-28 Completed Universit y of Vaccine Quad IM 3+ 00:00:00 [facility] Vital Signs Vital Name Observation Time Observation [...] 16:33:00 171 mm[Hg] Univer sity of [facility] Diastolic blood 2020-06-27 16:33:00 98 mm[Hg] Unive rsity of [facility] Heart rate 2020-06-27 16:33:00 71 /min [facility] Respiratory rate 2020-06-27 16:29:00 19 /min [facility] Body height 2020-06-27 16:29:[address] [facility] Body weight 2020-06-27 16:29:[address] [facility] BMI 2020-06-27 16:29:00 32.20 kg/m2 [facility] Oxygen saturation in 2020-06-27 16:29:00 99 /min [facility] Arterial blood by [facility] Pulse oximetry Branch Systolic blood 2020-06-27 16:33:00 171 mm[Hg] Univer sity of [facility] Diastolic blood 2020-06-27 16:33:00 98 mm[Hg] Unive rsity of [facility] Heart rate 2020-06-27 16:33:00 71 /min Universi ty [facility] Respiratory rate 2020-06-27 16:29:00 19 /min [facility] height 2020-06-27 16:29:00 154.9 cm [facility] Body weight 2020-06-27 16:29:00 77.293 kg [facility] BMI 2020-06-27 16:29:00 32.20 kg/m2 [facility] Oxygen saturation in 2020-06-27 16:29:00 99 /min University of Arterial blood by [facility] Pulse oximetry Branch Height/Length 2021-07-08 11:50:13 154.9 cm Measured Weight Dosing 2021-07-08 11:50:13 85.00 kg Height/Length 2021-07-08 11:47:31 154.9 cm Measured Weight Dosing 2021-07-08 11:47:31 85.00 kg Height/Length 2021-07-08 11:47:20 154.9 cm Measured Weight Dosing 2021-07-08 11:47:20 85.00 kg Systolic blood 2021-07-08 19:43:00 189 mm[Hg] [facility] pressure Diastolic blood 2021-07-08 19:43:00 104 mm[Hg] [facility] pressure Heart rate 2021-07-08 18:56:00 74 /min [facility] Body temperature 2021-07-08 18:56:[address] [facility] Body height 2021-07-08 18:56:00 157.5 cm [facility] Body weight 2021-07-08 18:56:00 72.938 kg [facility] BMI 2021-07-08 18:56:00 29.41 kg/m2 [facility] Oxygen saturation in 2021-07-08 18:56:00 100 /min [facility] Arterial blood by Pulse oximetry Respiratory rate 2021-06-18 16:36:00 11 /min [facility] Systolic (mm Hg) 2021-01-29 20:03:00 Mendoza rial [place] Diastolic (mm Hg) 2021-01-29 20:03:00 Mem orial [place] Systolic (mm Hg) 2021-01-29 19:40:00 Mendoza rial Vin Diastolic (mm Hg) 2021-01-29 19:40:00 Mem orial [place] Systolic (mm Hg) 2021-01-29 18:05:00 Mendoza rial Vin Diastolic (mm Hg) 2021-01-29 18:05:00 Mem orial Vin Respitory Rate 2021-01-29 16:55:00 Memori al [place] Temperature Oral (F) 2021-01-29 16:45:00 97.3 F [facility] [place] Respitory Rate 2021-01-29 16:45:00 Memori al [place] Respitory Rate 2021-01-29 16:30:00 Memori al Vin Temperature Oral (F) 2021-01-29 13:10:00 97.6 F Memorial Vin Systolic (mm Hg) 2021-01-27 05:00:00 Mendoza rial Vin Diastolic (mm Hg) 2021-01-27 05:00:00 Mem orial Vin Systolic (mm Hg) 2021-01-27 04:00:00 Mendoza rial Vin Diastolic (mm Hg) 2021-01-27 04:00:00 Mem orial Vin Systolic (mm Hg) 2021-01-27 03:00:00 Mendoza rial Vin Diastolic (mm Hg) 2021-01-27 03:00:00 Mem orial [place] Respitory Rate 2021-01-26 19:00:00 Memori al Vin Respitory Rate 2021-01-26 18:00:00 Memori al Vin Respitory Rate 2021-01-26 17:00:00 Memori al [place] Temperature Oral (F) 2021-01-22 13:00:00 97.6 F Memorial Vin Height 2021-01-21 18:25:00 149.86 cm [facility] [place] Weight 2021-01-21 18:25:00 [facility] [place] BMI Calculated 2021-01-21 18:25:00 Memori al [place] Height 2021-01-21 17:09:00 157.48 cm Memorial Vin Height 2021-01-21 13:09:00 157.48 cm Memorial Vin Weight 2021-01-21 13:09:00 [facility] Vin BMI Calculated 2021-01-21 13:09:00 Memori al Vin Heart Rate 2021-01-21 12:50:00 Memorial Vin Systolic (mm Hg) 2020-12-24 15:43:00 Mendoza rial Vin Diastolic (mm Hg) 2020-12-24 15:43:00 Mem orial Vin Heart Rate 2020-12-24 15:43:00 Memorial Vin Height 2020-12-24 15:43:00 154.94 cm [facility] [place] Weight 2020-12-24 15:43:00 Memorial Vin BMI Calculated 2020-12-24 15:43:00 Memori al [place] Systolic (mm Hg) 2016-07-30 14:00:00 Mendoza rial [...] Oral (F) 2016-07-30 10:45:00 97.2 F [facility] [place] Respitory Rate 2016-07-30 10:45:00 Memori al [place] Heart Rate 2016-07-30 06:35:00 [facility] [place] Temperature Oral (F) 2016-07-30 06:35:00 97.0 F [facility] [place] Respitory Rate 2016-07-30 06:35:00 Memori al [place] Systolic (mm Hg) 2016-07-30 06:35:00 Mendoza rial Vin Diastolic (mm Hg) 2016-07-30 06:35:00 Mem orial [place] Weight 2016-07-24 02:13:00 Memorial Vin BMI Calculated 2016-07-24 02:13:00 Memori al Vin Height 2016-07-24 02:13:00 160.02 cm Memorial Vin Respitory Rate 2016-06-15 15:00:00 Memori al Vin Systolic (mm Hg) 2016-06-15 15:00:00 Mendoza rial Vin Diastolic (mm Hg) 2016-06-15 15:00:00 Mem orial Vin Respitory Rate 2016-06-15 14:00:00 Memori al [place] Systolic (mm Hg) 2016-06-15 14:00:00 Mendoza rial Vin Diastolic (mm Hg) 2016-06-15 14:00:00 Mem orial [place] Respitory Rate 2016-06-15 13:29:00 Memori al [place] Systolic (mm Hg) 2016-06-15 13:29:00 Mendoza rial Vin Diastolic (mm Hg) 2016-06-15 13:29:00 Mem orial Vin Temperature Oral (F) 2016-06-14 10:56:00 97.1 F Memorial Vin Temperature Oral (F) 2016-06-14 06:55:00 97.1 F [facility] [place] Temperature Oral (F) 2016-06-12 10:00:00 96.8 F [facility] [place] Weight 2016-06-11 04:25:00 [facility] Vin Height 2016-06-11 04:25:00 160.02 cm [facility] Vin BMI Calculated 2016-06-11 04:25:00 Memori al [place] Heart Rate 2016-06-11 02:04:00 [facility] [place] Heart Rate 2016-06-11 00:00:00 [facility] [place] Heart Rate 2016-06-10 20:30:00 [facility] Vin Weight 2016-06-10 16:04:00 [facility] [place] BMI Calculated 2016-06-10 16:04:00 Memori al Vin Height 2016-06-10 16:04:00 160.02 cm [facility] Vin Temperature Oral (F) 2014-06-26 15:12:00 98.0 F [facility] [place] Systolic (mm Hg) 2014-06-26 15:12:00 Mendoza rial [place] Heart Rate 2014-06-26 15:12:00 [facility] [place] Diastolic (mm Hg) 2014-06-26 15:12:00 Mem orial [place] Respitory Rate 2014-06-26 15:12:00 Memori al [place] Systolic (mm Hg) 2014-06-26 13:53:00 Mendoza rial [place] Diastolic (mm Hg) 2014-06-26 13:53:00 Mem orial Vin Respitory Rate 2014-06-26 13:53:00 Memori al [place] Temperature Oral (F) 2014-06-26 13:53:00 98.0 F [facility] Vin Temperature Oral (F) 2014-06-26 12:37:00 98.2 F [facility] [place] Respitory Rate 2014-06-26 12:37:00 Memori al [place] Systolic (mm Hg) 2014-06-26 12:37:00 Mendoza rial [place] Diastolic (mm Hg) 2014-06-26 12:37:00 Mem orial [place] Heart Rate 2014-06-26 09:21:00 [facility] [place] Heart Rate 2014-06-26 06:08:00 [facility] [place] Height 2014-06-26 05:35:00 154.94 cm Memorial Vin Weight 2014-06-26 05:35:00 [facility] Vin BMI Calculated 2014-06-26 05:35:00 Memori al [place] Respitory Rate 2013-04-15 06:10:00 Memori al Vin Diastolic (mm Hg) 2013-04-15 06:10:00 Mem orial [place] Heart Rate 2013-04-15 06:10:00 Memorial Vin Systolic (mm Hg) 2013-04-15 06:10:00 Mendoza rial [place] Temperature Oral (F) 2013-04-15 06:10:00 98.7 F [facility] [place] Respitory Rate 2013-04-15 05:37:00 Memori al [place] Diastolic (mm Hg) 2013-04-15 05:37:00 Mem orial [place] Systolic (mm Hg) 2013-04-15 05:37:00 Mendoza rial Vin Temperature Oral (F) 2013-04-15 05:37:00 98.2 F Memorial Vin Heart Rate 2013-04-15 05:37:00 [facility] Vin Height 2013-04-15 02:06:00 160.02 cm [facility] [place] Weight 2013-04-15 02:06:00 [facility] Vin Temperature Oral (F) 2013-04-15 02:06:00 98.6 F [facility] [place] Respitory Rate 2013-04-15 02:06:00 Memori al [place] Heart Rate 2013-04-15 02:06:00 Memorial Vin Diastolic (mm Hg) 2013-04-15 02:06:00 Mem orial Vin Systolic (mm Hg) 2013-04-15 02:06:00 Mendoza rial Vin Weight 2012-03-14 21:33:00 [facility] [place] Systolic (mm Hg) 2011-12-01 00:33:00 Mendoza rial Vin Respitory Rate 2011-12-01 00:33:00 Memori al Vin Heart Rate 2011-12-01 00:33:00 [facility] Vin Diastolic (mm Hg) 2011-12-01 00:33:00 Mem orial [place] Temperature Oral (F) 2011-12-01 00:33:00 99.6 F [facility] [place] Diastolic (mm Hg) 2011-11-30 21:00:00 Mem orial Vin Heart Rate 2011-11-30 21:00:00 Memorial Vin Respitory Rate 2011-11-30 21:00:00 Memori al Vin Systolic (mm Hg) 2011-11-30 21:00:00 Mendoza rial [place] Temperature Oral (F) 2011-11-30 21:00:00 99.8 F Memorial Vin Respitory Rate 2011-11-30 16:30:00 Memori al Vin Systolic (mm Hg) 2011-11-30 16:30:00 Mendoza rial [place] Diastolic (mm Hg) 2011-11-30 16:30:00 Mem orial Vin Heart Rate 2011-11-30 16:30:00 [facility] [place] Temperature Oral (F) 2011-11-30 16:30:00 99.8 F [facility] Vin Weight 2011-11-29 11:40:00 [facility] [place] Height 2011-11-29 11:40:00 157.48 cm [facility] Vin Weight 2011-11-28 17:16:00 [facility] Vin Weight 2011-09-18 13:30:00 [facility] [place] Height 2011-09-18 13:30:00 154.94 cm [facility] Vin Heart Rate 2011-09-09 13:31:00 [facility] Vin Systolic (mm Hg) 2011-09-09 13:02:00 Mendoza rial Vin Diastolic (mm Hg) 2011-09-09 13:02:00 Mem orial Vin Respitory Rate 2011-09-09 13:02:00 Memori al [place] Temperature Oral (F) 2011-09-09 13:02:00 97.5 F [facility] [place] Diastolic (mm Hg) 2011-09-09 08:00:00 Mem orial Vin Heart Rate 2011-09-09 08:00:00 [facility] [place] Temperature Oral (F) 2011-09-09 08:00:00 98.6 F [facility] Vin Respitory Rate 2011-09-09 08:00:00 Memori al Vin Systolic (mm Hg) 2011-09-09 08:00:00 Mendoza rial Vin Respitory Rate 2011-09-09 04:55:00 Memori al Vin Diastolic (mm Hg) 2011-09-09 04:55:00 Mem orial [place] Systolic (mm Hg) 2011-09-09 04:55:00 Mendoza rial Vin Heart Rate 2011-09-09 04:55:00 [facility] Vin Temperature Oral (F) 2011-09-09 00:55:00 98.7 F [facility] [place] Weight 2011-09-01 19:59:00 [facility] [place] Height 2011-09-01 19:59:00 154.94 cm [facility] Vin Height 2011-09-01 07:01:00 154.94 cm [facility] Vin Weight 2011-09-01 07:01:00 Memorial Ivn Respitory Rate 2011-08-23 18:00:00 Memori al Vin Heart Rate 2011-08-23 18:00:00 [facility] Vin Systolic (mm Hg) 2011-08-23 18:00:00 Mendoza rial Vin Diastolic (mm Hg) 2011-08-23 18:00:00 Mem orial [place] Temperature Oral (F) 2011-08-23 18:00:00 97.7 F [facility] Vin Heart Rate 2011-08-23 14:24:00 [facility] [place] Temperature Oral (F) 2011-08-23 14:24:00 98.2 F [facility] [place] Diastolic (mm Hg) 2011-08-23 14:24:00 Mem orial [place] Systolic (mm Hg) 2011-08-23 14:24:00 Mendoza rial Vin Respitory Rate 2011-08-23 14:24:00 Memori al [place] Systolic (mm Hg) 2011-08-23 11:15:00 Mendoza rial Vin Diastolic (mm Hg) 2011-08-23 11:15:00 Mem orial Vin Temperature Oral (F) 2011-08-23 11:00:00 98.3 F [facility] [place] Heart Rate 2011-08-23 11:00:00 [facility] Vin Respitory Rate 2011-08-22 22:00:00 Memori al [place] Height 2011-08-20 09:12:00 154.94 cm [facility] Weight 2011-08-20 09:12:00 [facility] Height 2011-08-19 20:28:00 154.94 cm [facility] Weight 2011-08-19 20:28:00 [facility] Procedures Procedure Date / Time Performing Clinician Source Performed POC GLUCOSE 2021-06-18 17:00:00 Aurelio Schumacher Ho spital HEPATITIS B SURFACE 2021-06-18 14:07:00 [facility] ANTIGEN VANCOMYCIN LEVEL, RANDOM 2021-06-18 13:44:00 [facility] HC COMPLETE BLD COUNT 2021-06-18 13:44:00 [facility] W/AUTO DIFF BASIC METABOLIC PANEL 2021-06-18 11:27:00 [facility] ESTIMATED GFR 2021-06-18 11:27:00 Aurelio Schumacher Ho spital POC GLUCOSE 2021-06-18 08:07:00 Aurelio Schumacher [facility] Ho spital HEMODIALYSIS 2021-06-18 06:16:53 Bill Cooper Ho spital POC GLUCOSE 2021-06-18 01:26:00 Aurelio Schumacher [facility] Ho spital POC GLUCOSE 2021-06-17 21:58:00 Aurelio Schumacher [facility] Ho spital HEMODIALYSIS 2021-06-17 18:25:45 Bill Cooper [facility] Ho spital POC GLUCOSE 2021-06-17 17:36:00 RenettaAurelio [facility] Ho spital POC GLUCOSE 2021-06-17 13:51:00 RenettaAurelio Christianity spital BASIC METABOLIC PANEL 2021-06-17 11:16:00 [facility] HC COMPLETE BLD COUNT 2021-06-17 11:16:00 [facility] W/AUTO DIFF ESTIMATED GFR 2021-06-17 11:16:00 [facility] POC GLUCOSE 2021-06-17 02:50:00 [facility] CONSULT TO OSTOMY CARE 2021-06-17 00:31:48 [facility] NURSE HC COMPLETE BLD COUNT 2021-06-16 23:31:00 [facility] W/AUTO DIFF BASIC METABOLIC PANEL 2021-06-16 23:31:00 [facility] ESTIMATED GFR 2021-06-16 23:31:00 [facility] POC GLUCOSE 2021-06-16 23:19:00 [facility] OR [place] < 1 HOUR 2021-06-16 22:49:00 Mando Diaz [facility] ANAEROBIC CULTURE 2021-06-16 22:36:00 [facility] FUNGUS CULTURE 2021-06-16 22:36:00 Mando Diaz [facility] AEROBIC CULTURE 2021-06-16 22:36:00 Kaci Diazlicarlos alberto [facility] GRAM STAIN 2021-06-16 22:36:00 [facility] VA AN ELECTIVE 2021-06-16 21:30:00 Jocelyne Zepeda [facility] SUPRAGLOTTIC AIRWAY AORTOGRAPHY, POSSIBLE 2021-06-16 21:17:00 [facility] POC , URINE 2021-06-16 20:46:00 [facility] POT[facility] 2021-06-16 17:28:00 Isabell Dickerson [facility] Larry Romero POC GLUCOSE 2021-06-16 11:39:00 [facility] BASIC METABOLIC PANEL 2021-06-16 10:08:00 [facility] HC COMPLETE BLD COUNT 2021-06-16 10:08:00 [facility] W/AUTO DIFF PROTHROMBIN TIME WITH INR 2021-06-16 10:08:00 [facility] PARTIAL THROMBOPLASTIN 2021-06-16 10:08:00 [facility] TIME (PTT) TYPE AND SCREEN 2021-06-16 10:08:00 Char Viramontes [facility] ospital ESTIMATED GFR 2021-06-16 10:08:00 [facility] POC GLUCOSE 2021-06-16 01:59:00 [facility] POC GLUCOSE 2021-06-15 22:58:00 [facility] COVID-19 QUALITATIVE 2021-06-15 19:29:00 Char Viramontes [facility] RT-PCR POC GLUCOSE 2021-06-15 17:42:00 [facility] HEMODIALYSIS 2021-06-15 16:17:54 Delfino Akbar [facility] POC GLUCOSE 2021-06-15 15:41:00 [facility] POC GLUCOSE 2021-06-15 13:44:00 [facility] POC GLUCOSE 2021-06-15 13:00:00 [facility] ECG 12-LEAD 2021-06-15 12:48:21 Leni Barker Ho spital HC COMPLETE BLD COUNT 2021-06-15 11:42:00 [facility] W/AUTO DIFF BASIC METABOLIC PANEL 2021-06-15 11:42:00 [facility] ESTIMATED GFR 2021-06-15 11:42:00 [facility] POC GLUCOSE 2021-06-15 01:31:00 [facility] US DUPLEX ARTERIAL LOWER 2021-06-14 21:55:33 [facility] EXTREMITY RIGHT POC GLUCOSE 2021-06-14 21:51:00 [facility] POC GLUCOSE 2021-06-14 17:36:00 [facility] POC GLUCOSE 2021-06-14 13:30:00 [facility] POC GLUCOSE 2021-06-14 13:29:00 [facility] HC COMPLETE BLD COUNT 2021-06-14 10:13:00 [facility] W/AUTO DIFF BASIC METABOLIC PANEL 2021-06-14 10:13:00 [facility] ESTIMATED GFR 2021-06-14 10:13:00 [facility] POC GLUCOSE 2021-06-14 02:45:00 [facility] POC GLUCOSE 2021-06-13 21:47:00 [facility] POC GLUCOSE 2021-06-13 20:46:00 [facility] CBC WITH PLATELET AND 2021-06-13 16:10:00 [facility] DIFFERENTIAL COMPREHENSIVE METABOLIC 2021-06-13 16:10:00 [facility] PANEL ESTIMATED GFR 2021-06-13 16:10:00 [facility] HEMODIALYSIS 2021-06-13 15:26:35 [facility] POC GLUCOSE 2021-06-13 14:30:00 [facility] VANCOMYCIN LEVEL, RANDOM 2021-06-13 10:59:00 Juwan You [facility] POC GLUCOSE 2021-06-13 10:40:00 [facility] POC GLUCOSE 2021-06-13 02:28:00 [facility] POC GLUCOSE 2021-06-13 00:16:00 [facility] POC GLUCOSE 2021-06-12 23:31:00 [facility] POC GLUCOSE 2021-06-12 23:14:00 [facility] POC GLUCOSE 2021-06-12 18:19:00 [facility] POC GLUCOSE 2021-06-12 14:37:00 [facility] POC GLUCOSE 2021-06-12 14:01:00 [facility] POC GLUCOSE 2021-06-12 03:03:00 Nagel, Hloden Whyte spital [place] [facility] HEAD WO CONTRAST 2021-06-12 00:53:00 [facility] [place] POC GLUCOSE 2021-06-11 18:08:00 Jin Nageltrip Whyte spital [place] POC GLUCOSE 2021-06-11 13:39:00 Nagel, Holdentrip Whyte spital [place] HEMODIALYSIS 2021-06-11 12:38:38 Delfino Akbar [facility] POC GLUCOSE 2021-06-11 02:01:00 Nagel, Holdentrip Whyte spital [place] POC GLUCOSE 2021-06-10 22:15:00 Nagel, [facility] Christianity spital [place] POC GLUCOSE 2021-06-10 17:39:00 Nagel, [facility] Christianity spital [place] POC GLUCOSE 2021-06-10 16:05:00 Holden Nagel spital [place] TISSUE CULTURE 2021-06-10 15:08:00 Juwan You spital GRAM STAIN 2021-06-10 15:08:00 Juwan You spital ANAEROBIC CULTURE 2021-06-10 15:04:00 [facility] 2021-06-10 15:04:00 Juwan You spital AEROBIC CULTURE 2021-06-10 15:04:00 Juwan You spital AFB CULTURE 2021-06-10 15:04:00 Juwan You spital GRAM STAIN 2021-06-10 15:04:00 Juwan You spital AFB STAIN 2021-06-10 15:04:00 Juwan You spital VA AN ELECTIVE 2021-06-10 14:26:00 Sofi Roach spital SUPRAGLOTTIC AIRWAY Marquita INCISION AND DRAINAGE, 2021-06-10 14:26:[address] [facility] LOWER EXTREMITY HC COMPLETE BLD COUNT 2021-06-10 10:20:00 Juwan You [facility] W/AUTO DIFF BASIC METABOLIC PANEL 2021-06-10 10:20:00 Kenyatta, [facility] PROTHROMBIN TIME WITH INR 2021-06-10 10:20:00 [facility] PARTIAL THROMBOPLASTIN 2021-06-10 10:20:00 [facility] TIME (PTT) TYPE AND SCREEN 2021-06-10 10:20:00 Nagel, Holden Whyte Ho spital [place] ESTIMATED GFR 2021-06-10 10:20:00 Kenyatta Juwancaron Ferrara spital POC GLUCOSE 2021-06-10 03:11:00 Nagel, Holden Whyte Ho spital [place] POC GLUCOSE 2021-06-10 01:30:00 Nagel, Holden Ferrara spital [place] POC GLUCOSE 2021-06-09 22:22:00 Nagel, Holden Whyte Ho spital [place] POC GLUCOSE 2021-06-09 13:55:00 Nagel, Holden Whyte Ho spital [place] HEMODIALYSIS 2021-06-09 13:20:01 [facility] VANCOMYCIN LEVEL, RANDOM 2021-06-09 11:46:00 [facility] POC GLUCOSE 2021-06-09 02:06:00 Nagel, Holden Ferrara spital [place] POC GLUCOSE 2021-06-08 22:23:00 Nagel, Holden Whyte Ho spital [place] POC GLUCOSE 2021-06-08 17:53:00 Nagel, Holden Whyte Ho spital [place] HC COMPLETE BLD COUNT 2021-06-08 16:06:00 [facility] W/AUTO DIFF POC GLUCOSE 2021-06-08 13:56:00 Nagel, Holden Ferrara spital [place] URINE CULTURE 2021-06-08 03:56:00 Holden Nagel spital [place] URINALYSIS SCREEN AND 2021-06-08 03:32:00 [facility] MICROSCOPY, WITH REFLEX TO CULTURE POC GLUCOSE 2021-06-08 01:15:00 Nagel, Holden [facility]ara spital [facility]rez POC GLUCOSE 2021-06-07 22:07:00 Nagel, Holden [facility] POC GLUCOSE 2021-06-07 18:01:00 Holden Nagel Ho spital [place] BASIC METABOLIC PANEL 2021-06-07 14:15:00 [facility] ESTIMATED GFR 2021-06-07 14:15:00 Holden Nagel spital Ramírez POC GLUCOSE 2021-06-07 13:56:00 Holden Nagel Ho spital [place] POC GLUCOSE 2021-06-07 02:54:00 Holden Nagel spital Ram[facility] CT LOWER EXTREMITY W 2021-06-07 01:22:59 [facility] CONTRAST RIGHT POC GLUCOSE 2021-06-06 23:50:00 Holden Nagel Ho spital [place] POC GLUCOSE 2021-06-06 17:31:00 Holden Nagel spital [place] HEMODIALYSIS 2021-06-06 15:05:52 Delfino Akbar [facility] POC GLUCOSE 2021-06-06 14:03:00 Holden Nagel spital [place] HC COMPLETE BLD COUNT 2021-06-06 10:31:00 [facility] W/AUTO DIFF BASIC METABOLIC PANEL 2021-06-06 10:31:00 [facility] ESTIMATED GFR 2021-06-06 10:31:00 Holden Nagel Ho spital [place] POC GLUCOSE 2021-06-06 10:14:00 Holden Nagel Ho spital [place] POC GLUCOSE 2021-06-06 06:26:00 Holden Nagel spital Ramírez POC GLUCOSE 2021-06-06 02:41:00 Holden Nagel Ho spital [place] POC GLUCOSE 2021-06-05 19:51:00 Holden Nagel Ho spital [place] BASIC METABOLIC PANEL 2021-06-05 18:06:00 [facility] HC COMPLETE BLD COUNT 2021-06-05 18:06:00 [facility] W/AUTO DIFF ESTIMATED GFR 2021-06-05 18:06:00 Robe Holden [facility] spital Ramírez POC GLUCOSE 2021-06-05 17:48:00 Robe [facility] spital Ramírez ANAEROBIC CULTURE 2021-06-05 17:10:00 Kenyatta, [facility] ANAEROBIC CULTURE 2021-06-05 16:59:00 Kenyatta, [facility] FUNGUS CULTURE 2021-06-05 16:59:00 Kenyatta, [facility] spital AEROBIC CULTURE 2021-06-05 16:59:00 Kenyatta, [facility] spital AFB CULTURE 2021-06-05 16:59:00 [facility]AR 2021-06-05 16:59:00 Kenyatta, [facility] spital AFB STAIN 2021-06-05 16:59:00 Kenyatta, [facility] spital VA AN ELECTIVE 2021-06-05 16:52:08 Herrera [facility] SUPRAGLOTTIC AIRWAY TISSUE CULTURE 2021-06-05 16:50:00 Kenyatta, [facility] spital GRAM STAIN 2021-06-05 16:50:00 [facility] DEBRID[facility], LOWER 2021-06-05 16:16:00 Kenyatta [facility] EXTREMITY POC GLUCOSE 2021-06-05 13:32:00 [facility] TROPONIN T 2021-06-05 10:58:00 Char Viramontes [facility] ospital ABO AND RH CONFIRMATION BY 2021-06-05 10:54:00 Rachel Brasher [facility] PROTOCOL Vipin BASIC METABOLIC PANEL 2021-06-05 10:53:00 [facility] HC COMPLETE BLD COUNT 2021-06-05 10:53:00 [facility] W/AUTO DIFF ESTIMATED GFR 2021-06-05 10:53:00 Sivan Stewart [facility] PROTHROMBIN TIME WITH INR 2021-06-05 10:52:00 [facility] PARTIAL THROMBOPLASTIN 2021-06-05 10:52:[address] [facility] TIME (PTT) HCG QUALITATIVE, SERUM 2021-06-05 10:52:00 Myron Fernandes [facility] SCREEN POC GLUCOSE 2021-06-05 09:40:00 Rachel Brasher Ho spital [place] BLOOD CULTURE, AEROBIC & 2021-06-05 08:27:00 Rachel Brasher [facility] ANAEROBIC Vipin POC GLUCOSE 2021-06-05 07:42:00 Rachel Brasher Ho spital [place] POC GLUCOSE 2021-06-05 06:57:00 Rachel Brasher Ho spital [place] POC GLUCOSE 2021-06-05 06:10:00 Holden Nagel Ho spital Ramírez BLOOD CULTURE, AEROBIC & 2021-06-05 04:31:00 Rachel Brasher [facility] ANAEROBIC Vipin POC GLUCOSE 2021-06-05 04:04:00 Rachel Brasher Ho spital [place] POC GLUCOSE 2021-06-05 03:51:00 Rachel Brasher Ho sp[facility] [place] TYPE AND SCREEN 2021-06-05 03:40:00 Rachel Brasher Ho spital [place] POC GLUCOSE 2021-06-05 03:05:00 Rachel Brasher Ho spital [place] POC GLUCOSE 2021-06-05 02:23:00 Rachel Brasher Ho spital [place] COVID-19 QUALITATIVE 2021-06-05 02:08:[address] [facility] RT-PCR HC COMPLETE BLD COUNT 2021-06-05 01:24:00 SamantaSivan [facility] W/AUTO DIFF PROTHROMBIN TIME WITH INR 2021-06-05 01:24[facility]00 [facility] PARTIAL THROMBOPLASTIN 2021-06-05 01:24:00 hollySivan [facility] TIME (PTT) COMPREHENSIVE METABOLIC 2021-06-05 01:24:00 Sivan Stewart [facility] PANEL CREATINE KINASE, TOTAL 2021-06-05 01:24:00 Sivan Stewart [facility] (CPK) B NATRIURETIC PEPTIDE 2021-06-05 01:24:00 Sivan Stewart [facility] TROPONIN T 2021-06-05 01:24:00 Char Viramontes ospigabe ESTIMATED GFR 2021-06-05 01:24:00 Sivan monge [facility] ECG ED PRELIMINARY 2021-06-05 00:31:28 Sivan Stewart [facility] INTERPRETATION ECG 12-LEAD 2021-06-05 00:19:17 Rachel Brasher Vipin POC GLUCOSE 2021-05-25 18:04:00 Awe, [facility] POC GLUCOSE 2021-05-25 14:00:00 Awe, [facility] CBC HEMOGRAM 2021-05-25 10:12:00 [facility], [facility] BASIC METABOLIC PANEL 2021-05-25 10:12:00 Awe, [facility] ESTIMATED GFR 2021-05-25 10:12:00 Awe, [facility] POC GLUCOSE 2021-05-25 02:49:00 Awe, [facility] POC GLUCOSE 2021-05-24 23:33:00 Awe, [facility] POC GLUCOSE 2021-05-24 17:56:00 [facility], [facility] 2021-05-24 13:59:00 Awe, [facility] CBC HEMOGRAM 2021-05-24 10:12:00 Awe, [facility] BASIC METABOLIC PANEL 2021-05-24 10:12:00 Awe, [facility] ESTIMATED GFR 2021-05-24 10:12:00 Awe, [facility] POC GLUCOSE 2021-05-24 09:59:00 [facility], [facility] 2021-05-24 02:26:00 [facility] 2021-05-24 00:03:00 Awe, [facility] TRANSFUSE RED BLOOD CELLS 2021-05-23 22:30:00 [facility] TRANSFUSE RED BLOOD CELLS 2021-05-23 21:30:00 [facility] POC GLUCOSE 2021-05-23 19:03:00 Awe, [facility] TYPE AND SCREEN 2021-05-23 14:38:00 [facility] HC COMPLETE BLD COUNT 2021-05-23 14:38:00 [facility] W/AUTO DIFF PREPARE RBC 2021-05-23 14:38:00 [facility] ospital PREPARE PLATELET PHERESIS 2021-05-23 14:38:00 [facility] POC GLUCOSE 2021-05-23 14:35:00 Awe, [facility] HEMODIALYSIS 2021-05-23 13:42:30 [facility] CBC HEMOGRAM 2021-05-23 12:31:00 Awe, [facility] BASIC METABOLIC PANEL 2021-05-23 12:31:00 Awe, [facility] ESTIMATED GFR 2021-05-23 12:31:00 Awe, [facility] POC GLUCOSE 2021-05-23 11:22:00 Awe, [facility] POC GLUCOSE 2021-05-23 03:30:00 Awe, [facility] POC GLUCOSE 2021-05-22 23:20:00 Awe, [facility] POC GLUCOSE 2021-05-22 17:20:00 Awe, [facility] POC GLUCOSE 2021-05-22 13:27:00 [facility], [facility] BASIC METABOLIC PANEL 2021-05-22 12:31:00 [facility] MAGN[facility] L[facility] 2021-05-22 12:31:00 Nikki Haynes ospital Ra[place] CBC HEMOGRAM 2021-05-22 12:31:00 Nikki Haynes ospital Rahel ESTIMATED GFR 2021-05-22 12:31:00 Nikki Haynes [facility] ospital Rahel POC GLUCOSE 2021-05-22 10:54:00 Awe, [facility] POC GLUCOSE 2021-05-22 07:28:00 Awe, [facility] POC GLUCOSE 2021-05-22 01:11:00 Awe, [facility] HEPATITIS B SURFACE 2021-05-21 21:08:00 [facility] ANTIBODY HEMODIALYSIS 2021-05-21 20:57:40 [facility] POC GLUCOSE 2021-05-21 17:57:00 Awe, [facility] POC GLUCOSE 2021-05-21 13:55:00 Awe, [facility] POC GLUCOSE 2021-05-21 10:41:00 Tom Barber ZZCOVID-19 ANTI-SPIKE IGG 2021-05-21 07:43:00 Clyde Olmstead [facility] ANTIBODY TITER Esa BASIC METABOLIC PANEL 2021-05-21 07:43:00 [facility] MAGNESIUM LEVEL 2021-05-21 07:43:00 Nikki Haynes ospigabe Mcginnis CBC HEMOGRAM 2021-05-21 07:43:00 Nikki Haynes ospigabe Mcginnis ZZCOVID-19 SEROLOGY 2021-05-21 07:43:00 [facility] Esa ESTIMATED GFR 2021-05-21 07:43:00 Andre Sofia spital [place] LACTIC ACID LEVEL 2021-05-21 07:43:00 GrahamLeodan Raj [facility] POC GLUCOSE 2021-05-21 06:35:00 Tom Barber spital HC COMPLETE BLD COUNT 2021-05-21 02:49:00 [facility] W/AUTO DIFF BASIC METABOLIC PANEL 2021-05-21 02:49:00 [facility] LACTIC ACID LEVEL 2021-05-21 02:49:00 [facility] OSMOLALITY, SERUM 2021-05-21 02:49:00 [facility] BETA HYDROXYBUTYRATE 2021-05-21 02:49:00 [facility] PROCALCITONIN 2021-05-21 02:49:00 [facility] ESTIMATED GFR 2021-05-21 02:49:00 [facility] POC GLUCOSE 2021-05-21 02:34:00 Tom Barber spital HC COMPLETE BLD COUNT 2021-05-21 00:28:00 [facility]FF POC GLUCOSE 2021-05-20 23:57:00 Tom Barber spital BASIC METABOLIC PANEL 2021-05-20 23:20:00 Andre Sofia [facility] [place] LACTIC ACID LEVEL 2021-05-20 23:20:00 Andre Sofia [facility] [place] ESTIMATED GFR 2021-05-20 23:20:00 Andre Sofia [...] TRANSFUSE RED BLOOD CELLS 2021-05-20 17:21:00 Kimberlyn [facility] [place] TRANSFUSE PLATELET 2021-05-20 15:52:[address] [facility] PHERESIS BASIC METABOLIC PANEL 2021-05-20 15:25:00 [facility] [place] ESTIMATED GFR 2021-05-20 15:25:00 Andre Sofia spital [place] POC GLUCOSE 2021-05-20 14:48:00 Tom Barber Ho spital HEMODIALYSIS 2021-05-20 11:31:20 [facility] POC GLUCOSE 2021-05-20 10:44:00 Tom Barber spital HEPATITIS B SURFACE 2021-05-20 08:49:00 [facility] ANTIGEN HEPATITIS B SURFACE AB, 2021-05-20 08:49:00 [facility] QUANTITATIVE HC COMPLETE BLD COUNT 2021-05-20 08:25:00 [facility] W/AUTO DIFF BASIC METABOLIC PANEL 2021-05-20 08:25:00 [facility] MAGNESIUM LEVEL 2021-05-20 08:25:00 [facility] ospital PHOSPHORUS LEVEL 2021-05-20 08:25:00 [facility] PROTHROMBIN TIME WITH INR 2021-05-20 08:25:00 Leodan Stevenson [facility] ESTIMATED GFR 2021-05-20 08:25:00 Juwan You spital HEMOGLOBIN A1C 2021-05-20 08:25:00 Nikki Haynes H ospital [place]hel POC GLUCOSE 2021-05-20 06:34:00 Tom Barber spital ARTERIAL BLOOD GAS 2021-05-20 04:36:00 [facility] 12-LEAD 2021-05-20 03:42:28 Graham [facility] Ho spital PROTHROMBIN TIME WITH INR 2021-05-20 02:54:00 [facility] COMPLETE [facility]LD [facility] 2021-05-20 02:54[facility] BASIC METABOLIC PANEL 2021-05-20 02:54:00 [facility] LACTIC ACID LEVEL 2021-05-20 02:54:00 Graham [facility] VENOUS BLOOD GAS 2021-05-20 02:54:00 Graham [facility] ospital ESTIMATED GFR 2021-05-20 02:54:00 Graham [facility] Ho spital POC GLUCOSE 2021-05-20 02:54:00 Tom Barber spital XR CHEST 1 VW PORTABLE 2021-05-20 02:51:13 Graham [facility] [place] < 1 HOUR 2021-05-20 01:30:15 Juwan You spital TRANSFUSE RED BLOOD CELLS 2021-05-20 00:59:00 Juwan You [facility] VA AN ELECTIVE 2021-05-20 00:53:01 Sukhjinder Medina spital SUPRAGLOTTIC AIRWAY [place] INCISION AND DRAINAGE, 2021-05-20 00:45:[address] [facility] HEMATOMA HC COMPLETE BLD COUNT 2021-05-19 22:13:00 [facility] W/AUTO DIFF BASIC METABOLIC PANEL 2021-05-19 22:13:00 [facility] PROTHROMBIN TIME WITH INR 2021-05-19 22:13:00 [facility] PARTIAL THROMBOPLASTIN 2021-05-19 22:13:00 [facility] TIME (PTT) MAGNESIUM LEVEL 2021-05-19 22:13:00 Char Viramontesist H ospital ESTIMATED GFR 2021-05-19 22:13:00 Juwan You spital POC GLUCOSE 2021-05-19 22:00:00 Errol Luther [facility] SURGICAL PATHOLOGY REQUEST 2021-05-19 21:47:00 Errol Luther [facility] POC GLUCOSE 2021-05-19 21:17:00 Juwan You spital ACTIVATED CLOTTING TIME 2021-05-19 19:12:[address] [facility] VA AN ELECTIVE 2021-05-19 18:11:04 Sukhjinder Medina spital SUPRAGLOTTIC AIRWAY [place] LOWER EXTREMITY 2021-05-19 17:59:00 Juwan You spital ANGIOGRAM,POSSIBLE ANGIOPLASTY,POSSIBLE STENT XR CHEST 1 VW PORTABLE 2021-05-19 15:47:37 [facility] 2021-05-19 14:34:00 Juwan You spital POC PANEL 2021-05-19 14:34:00 Juwan You spital TYPE AND SCREEN 2021-05-19 14:05:00 Isabell Dickerson spital Larry Romero PREPARE RBC 2021-05-19 14:05:00 Char Viramontes ospital PREPARE FRESH FROZEN 2021-05-19 14:05:00 Char Viramontes [facility] PLASMA PREPARE PLATELET PHERESIS 2021-05-19 14:05:00 Char Viramontes [facility] BASIC METABOLIC PANEL 2021-05-19 14:00:00 Jayla [facility] Larry Romero PROTHROMBIN TIME WITH INR 2021-05-19 14:00:00 Jayla [facility] Larry Romero HC COMPLETE BLD COUNT 2021-05-19 14:00:00 Jayla [facility] W/AUTO DIFF Larry Romero ABO AND RH CONFIRMATION BY 2021-05-19 14:00:00 Juwan You [facility] PROTOCOL ESTIMATED GFR 2021-05-19 14:00:00 Isabell Dickerson COVID-19 QUALITATIVE 2021-05-19 12:40:00 Juwan You [facility] RT-PCR MEDICAL RELEASE/CLEARANCE 2021-05-13 06:01:00 Doctor Unassigned, [facility] FORMS [facility] US DUPLEX ARTERIAL LOWER 2021-05-12 15:21:31 Juwan You [facility] EXTREMITY BILATERAL Emergency department visit 2013-04-15 05:00:00 [...] push, single or initial substance/drug [facility] EGD [facility] (esophagogastroduodenoscop y) gastric outlet [facility] 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 Plan of Care Planned Activity Planned Date Details Comments Source Future Scheduled 2022-06-11 HEPATITIS B VACCINES [facility] Test 02:09:30 (1 of 3 - 3-dose series) [code = HEPATITIS B VACCINES (1 of 3 - 3-dose series)] Future Scheduled 2022-06-11 COVID-19 VACCINE (#1) [facility] Test 02:09:30 [code = COVID-19 VACCINE (#1)] Future Scheduled 2022-06-11 Pneumococcal Vaccine: [facility] Test 02:09:30 Pediatrics (0 to 5 Years) and At-Risk Patients (6 to 64 Years) (1 - PCV) [code = Pneumococcal Vaccine: Pediatrics (0 to 5 Years) and At-Risk Patients (6 to 64 Years) (1 - PCV)] Future Scheduled 2022-06-11 Hepatitis C screening [facility] Test 02:09:30 (procedure) [code = 702395943] Future Scheduled 2022-06-11 Screening for [facility] Test 02:09:30 malignant neoplasm of cervix (procedure) [code = 506450250] Future Scheduled 2022-06-11 INFLUENZA VACCINE Method [facility] Test 02:09:30 [code = INFLUENZA VACCINE] Future Scheduled 2022-06-11 HEPATITIS B VACCINES [facility] Test 02:09:30 (1 of 3 - 3-dose series) [code = HEPATITIS B VACCINES (1 of 3 - 3-dose series)] Future Scheduled 2022-06-11 COVID-19 VACCINE (#1) [facility] Test 02:09:30 [code = COVID-19 VACCINE (#1)] Future Scheduled 2022-06-11 Pneumococcal Vaccine: [facility] Test 02:09:30 Pediatrics (0 to 5 Years) and At-Risk Patients (6 to 64 Years) (1 - PCV) [code = Pneumococcal Vaccine: Pediatrics (0 to 5 Years) and At-Risk Patients (6 to 64 Years) (1 - PCV)] Future Scheduled 2022-06-11 Hepatitis C screening [facility] Test 02:09:30 (procedure) [code = [id number]] Future Scheduled 2022-06-11 Screening for [facility] Test 02:09:30 malignant neoplasm of cervix (procedure) [code = 051643365] Future Scheduled 2022-06-11 INFLUENZA VACCINE [facility] Test 02:09:30 [code = INFLUENZA VACCINE] Future Scheduled 2022-06-11 HEPATITIS B VACCINES [facility] Test 02:09:30 (1 of 3 - 3-dose series) [code = HEPATITIS B VACCINES (1 of 3 - 3-dose series)] Future Scheduled 2022-06-11 COVID-19 VACCINE (#1) [facility] Test 02:09:30 [code = COVID-19 VACCINE (#1)] Future Scheduled 2022-06-11 Pneumococcal Vaccine: [facility] Test 02:09:30 Pediatrics (0 to 5 Years) and At-Risk Patients (6 to 64 Years) (1 - PCV) [code = Pneumococcal Vaccine: Pediatrics (0 to 5 Years) and At-Risk Patients (6 to 64 Years) (1 - PCV)] Future Scheduled 2022-06-11 Hepatitis C screening [facility] Test 02:09:30 (procedure) [code = 261536450] Future Scheduled 2022-06-11 [facility] Test 02:09:30 malignant neoplasm of cervix (procedure) [code = 674555986] Future Scheduled 2022-06-11 INFLUENZA VACCINE Method [facility] Test 02:09:30 [code = INFLUENZA VACCINE] Future Scheduled 2022-06-01 HEPATITIS B VACCINES [facility] Test 16:17:59 (1 of 3 - 3-dose series) [code = HEPATITIS B VACCINES (1 of 3 - 3-dose series)] Future Scheduled 2022-06-01 COVID-19 VACCINE (#1) [facility] Test 16:17:59 [code = COVID-19 VACCINE (#1)] Future Scheduled 2022-06-01 Pneumococcal Vaccine: [facility] Test 16:17:59 Pediatrics (0 to 5 Years) and At-Risk Patients (6 to 64 Years) (1 - PCV) [code = Pneumococcal Vaccine: Pediatrics (0 to 5 Years) and At-Risk Patients (6 to 64 Years) (1 - PCV)] Future Scheduled 2022-06-01 Hepatitis C screening [facility] Test 16:17:59 (procedure) [code = 658092048] Future Scheduled 2022-06-01 [facility] Test 16:17:59 malignant neoplasm of cervix (procedure) [code = 914054279] Future Scheduled 2022-06-01 INFLUENZA VACCINE [facility] Test 16:17:59 [code = INFLUENZA VACCINE] Future Scheduled 2022-04-25 HEPATITIS B VACCINES [facility] Test 12:43:16 (1 of 3 - 3-dose series) [code = HEPATITIS B VACCINES (1 of 3 - 3-dose series)] Future Scheduled 2022-04-25 COVID-19 VACCINE (#1) [facility] Test 12:43:16 [code = COVID-19 VACCINE (#1)] Future Scheduled 2022-04-25 Pneumococcal Vaccine: [facility] Test 12:43:16 Pediatrics (0 to 5 Years) and At-Risk Patients (6 to 64 Years) (1 - PCV) [code = Pneumococcal Vaccine: Pediatrics (0 to 5 Years) and At-Risk Patients (6 to 64 Years) (1 - PCV)] Future Scheduled 2022-04-25 Hepatitis C screening [facility] Test 12:43:16 (procedure) [code = 995160261] Future Scheduled 2022-04-25 Screening for [facility] Test 12:43:16 malignant neoplasm of cervix (procedure) [code = 095376632] Future Scheduled 2022-04-25 INFLUENZA VACCINE Method [facility] Test 12:43:16 [code = INFLUENZA VACCINE] Future Scheduled 2022-02-27 HEPATITIS B VACCINES [facility] Test 05:24:42 (1 of 3 - 3-dose series) [code = HEPATITIS B VACCINES (1 of 3 - 3-dose series)] Future Scheduled 2022-02-27 COVID-19 VACCINE (#1) [facility] Test 05:24:42 [code = COVID-19 VACCINE (#1)] Future Scheduled 2022-02-27 Pneumococcal Vaccine: [facility] Test 05:24:42 Pediatrics (0 to 5 Years) and At-Risk Patients (6 to 64 Years) (1 - PCV) [code = Pneumococcal Vaccine: Pediatrics (0 to 5 Years) and At-Risk Patients (6 to 64 Years) (1 - PCV)] Future Scheduled 2022-02-27 Hepatitis C screening [facility] Test 05:24:42 (procedure) [code = 531296799] Future Scheduled 2022-02-27 Screening for [facility] Test 05:24:42 malignant neoplasm of cervix (procedure) [code = 994959368] Future Scheduled 2022-02-27 INFLUENZA VACCINE [facility] Test 05:24:42 [code = INFLUENZA VACCINE] Future Scheduled 2022-02-27 HEPATITIS B VACCINES [facility] Test 05:24:42 (1 of 3 - 3-dose series) [code = HEPATITIS B VACCINES (1 of 3 - 3-dose series)] Future Scheduled 2022-02-27 COVID-[facility] Test 05:24:42 [code = COVID-19 VACCINE (#1)] Future Scheduled 2022-02-27 Pneumococcal Vaccine: [facility] Test 05:24:42 Pediatrics (0 to 5 Years) and At-Risk Patients (6 to 64 Years) (1 - PCV) [code = Pneumococcal Vaccine: Pediatrics (0 to 5 Years) and At-Risk Patients (6 to 64 Years) (1 - PCV)] Future Scheduled 2022-02-27 Hepatitis C screening [facility] Test 05:24:42 (procedure) [code = 015950116] Future Scheduled 2022-02-27 Screening for [facility] Test 05:24:42 malignant neoplasm of cervix (procedure) [code = 151280648] Future Scheduled 2022-02-27 INFLUENZA VACCINE [facility] Test 05:24:42 [code = INFLUENZA VACCINE] Future Scheduled 2022-02-27 HEPATITIS B VACCINES [facility] Test 05:24:42 (1 of 3 - 3-dose series) [code = HEPATITIS B VACCINES (1 of 3 - 3-dose series)] Future Scheduled 2022-02-27 COVID-19 VACCINE (#1) [facility] Test 05:24:42 [code = COVID-19 VACCINE (#1)] Future Scheduled 2022-02-27 Pneumococcal Vaccine: [facility] Test 05:24:42 Pediatrics (0 to 5 Years) and At-Risk Patients (6 to 64 Years) (1 - PCV) [code = Pneumococcal Vaccine: Pediatrics (0 to 5 Years) and At-Risk Patients (6 to 64 Years) (1 - PCV)] Future Scheduled 2022-02-27 Hepatitis C screening [facility] Test 05:24:42 (procedure) [code = 471250257] Future Scheduled 2022-02-27 [facility] Test 05:24:42 malignant neoplasm of cervix (procedure) [code = 130208767] Future Scheduled 2022-02-27 INFLUENZA VACCINE [facility] Test 05:24:42 [code = INFLUENZA VACCINE] Future Scheduled 2022-02-27 HEPATITIS B VACCINES [facility] Test 05:24:42 (1 of 3 - 3-dose series) [code = HEPATITIS B VACCINES (1 of 3 - 3-dose series)] Future Scheduled 2022-02-27 COVID-19 VACCINE (#1) [facility] Test 05:24:42 [code = COVID-19 VACCINE (#1)] Future Scheduled 2022-02-27 Pneumococcal Vaccine: [facility] Test 05:24:42 Pediatrics (0 to 5 Years) and At-Risk Patients (6 to 64 Years) (1 - PCV) [code = Pneumococcal Vaccine: Pediatrics (0 to 5 Years) and At-Risk Patients (6 to 64 Years) (1 - PCV)] Future Scheduled 2022-02-27 Hepatitis C screening [facility] Test 05:24:42 (procedure) [code = 337600859] Future Scheduled 2022-02-27 [facility] Test 05:24:42 malignant neoplasm of cervix (procedure) [code = 241353225] Future Scheduled 2022-02-27 INFLUENZA VACCINE Method [facility] Test 05:24:42 [code = INFLUENZA VACCINE] Future Scheduled 2022-02-27 HEPATITIS B VACCINES Met [facility] Test 05:24:42 (1 of 3 - 3-dose series) [code = HEPATITIS B VACCINES (1 of 3 - 3-dose series)] Future Scheduled 2022-02-27 COVID-19 VACCINE (#1) [facility] Test 05:24:42 [code = COVID-19 VACCINE (#1)] Future Scheduled 2022-02-27 Pneumococcal Vaccine: [facility] Test 05:24:42 Pediatrics (0 to 5 Years) and At-Risk Patients (6 to 64 Years) (1 - PCV) [code = Pneumococcal Vaccine: Pediatrics (0 to 5 Years) and At-Risk Patients (6 to 64 Years) (1 - PCV)] Future Scheduled 2022-02-27 Hepatitis C screening [facility] Test 05:24:42 (procedure) [code = 356108983] Future Scheduled 2022-02-27 [facility] Test 05:24:42 malignant neoplasm of cervix (procedure) [code = 578224801] Future Scheduled 2022-02-27 INFLUENZA VACCINE Method [facility] Test 05:24:42 [code = INFLUENZA VACCINE] Future Scheduled 2022-02-27 HEPATITIS B VACCINES Met [facility] Test 05:24:42 (1 of 3 - 3-dose series) [code = HEPATITIS B VACCINES (1 of 3 - 3-dose series)] Future Scheduled 2022-02-27 COVID-19 VACCINE (#1) [facility] Hospital Test 05:24:42 [code = COVID-19 VACCINE (#1)] Future Scheduled 2022-02-27 Pneumococcal Vaccine: [facility] Test 05:24:42 Pediatrics (0 to 5 Years) and At-Risk Patients (6 to 64 Years) (1 - PCV) [code = Pneumococcal Vaccine: Pediatrics (0 to 5 Years) and At-Risk Patients (6 to 64 Years) (1 - PCV)] Future Scheduled 2022-02-27 Hepatitis C screening [facility] Test 05:24:42 (procedure) [code = 372947577] Future Scheduled 2022-02-27 [facility] Test 05:24:42 malignant neoplasm of cervix (procedure) [code = 869355790] Future Scheduled 2022-02-27 INFLUENZA VACCINE Method [facility] Test 05:24:42 [code = INFLUENZA VACCINE] Future Scheduled 2022-02-27 HEPATITIS B VACCINES [facility] Test 05:24:42 (1 of 3 - 3-dose series) [code = HEPATITIS B VACCINES (1 of 3 - 3-dose series)] Future Scheduled 2022-02-27 COVID-19 VACCINE (#1) [facility] Test 05:24:42 [code = COVID-19 VACCINE (#1)] Future Scheduled 2022-02-27 Pneumococcal Vaccine: [facility] Test 05:24:42 Pediatrics (0 to 5 Years) and At-Risk Patients (6 to 64 Years) (1 - PCV) [code = Pneumococcal Vaccine: Pediatrics (0 to 5 Years) and At-Risk Patients (6 to 64 Years) (1 - PCV)] Future Scheduled 2022-02-27 Hepatitis C screening [facility] Test 05:24:42 (procedure) [code = 688378758] Future Scheduled 2022-02-27 [facility] Test 05:24:42 malignant neoplasm of cervix (procedure) [code = 853620694] Future Scheduled 2022-02-27 INFLUENZA VACCINE Method [facility] Test 05:24:42 [code = INFLUENZA VACCINE] Future Scheduled 2022-02-27 HEPATITIS B VACCINES Met [facility] Test 05:24:42 (1 of 3 - 3-dose series) [code = HEPATITIS B VACCINES (1 of 3 - 3-dose series)] Future Scheduled 2022-02-27 COVID-19 VACCINE (#1) [facility] Hospital Test 05:24:42 [code = COVID-19 VACCINE (#1)] Future Scheduled 2022-02-27 Pneumococcal Vaccine: [facility] Test 05:24:42 Pediatrics (0 to 5 Years) and At-Risk Patients (6 to 64 Years) (1 - PCV) [code = Pneumococcal Vaccine: Pediatrics (0 to 5 Years) and At-Risk Patients (6 to 64 Years) (1 - PCV)] Future Scheduled 2022-02-27 Hepatitis C screening [facility] Test 05:24:42 (procedure) [code = 822597662] Future Scheduled 2022-02-27 [facility] Test 05:24:42 malignant neoplasm of cervix (procedure) [code = 774720021] Future Scheduled 2022-02-27 INFLUENZA VACCINE Method [facility] Test 05:24:42 [code = INFLUENZA VACCINE] Future Scheduled 2021-07-22 COVID-19 VACCINE (1) Met [facility] Test 13:11:04 [code = COVID-19 VACCINE (1)] Future Scheduled 2021-07-22 Hepatitis C screening [facility] Test 13:11:04 (procedure) [code = 263144205] Future Scheduled 2021-07-22 [facility] Test 13:11:04 malignant neoplasm of cervix (procedure) [code = 501780317] Future Scheduled 2021-07-22 INFLUENZA VACCINE Method [facility] Test 13:11:04 [code = INFLUENZA VACCINE] Encounters Start End Encounter Admission Attending Care Care Encounter Source Date/Time Date/Time Type Type Clinicians Facility Department ID 2022-04-29 Outpatient [facility] [id number] [place] 09:02:27 [id number] [facility] 2022-04-28 Outpatient [facility] [id number] [place] 12:17:07 [id number] [facility] 2021-12-29 Outpatient [facility] ER [id number] [place] 11:56:31 [id number] [facility] 2021-12-19 Outpatient [facility] ER [id number] [place] 14:05:12 [id number] [facility] 2021-12-12 Outpatient [facility] ER [id number] [place] 12:11:07 [id number] [facility] 2021-12-05 Outpatient [facility] ER [id number] [place] 20:09:51 [id number] [facility] 2021-10-28 Outpatient [facility] ER [id number] [place] 17:04:22 [id number] [facility] 2021-07-22 Outpatient nullFlavo [facility] [id number] Memoria 00:10:30 r Medical 06 l [facility] 2021-07-22 Outpatient nullFlavo [facility] [id number] Memoria 00:10:30 r Medical 05 l [facility] 2021-07-22 Preadmit nullFlavo [id number] Memoria 00:10:30 r [place] [address] [place] 2021-04-22 Emergency [facility] [id number] Univers 02:13:03 ity [facility] 2021-04-18 Emergency [facility] [id number] Univers 22:32:23 [facility] 2021-04-17 Emergency [facility] [id number] Univers 17:46:08 [facility] 2022-04-09 2022-04-09 Outpatient Nodal_J [facility] [id number] 022 Devoted 00:00:00 00:00:00 1020 Medica l Group 2022-01-02 2022-01-02 Outpatient Deshazo_T [facility] [id number] -2021 Devoted 03:37:00 03:37:00 0715 Medica l Group 2021-12-15 2021-12-15 Outpatient [facility] [id number] [place] 08:00:00 08:00:00 [facility] 2021-12-02 2021-12-02 Travel 1.2.840.1 1.2.388.780 4328 [id number] Methodi 00:00:00 00:00:[address] 3.430.2.7 0.2.7.3.698 Ho spita .3.293600 084.8 l .8 2021-12-02 2021-12-02 Travel 1.2.840.1 1.2.580.677 1685 808524 Methodi 00:00:00 00:00:[address] 3.430.2.7 0.2.7.3.698 Ho spita .3.296883 084.8 l .8 2021-11-13 2021-11-13 Transcribe [place], 1.2.840.1 [id number] 21 [id number] Methodi 00:00:00 00:00:00 Orders Jose Miguel G. 70162.1.[address] 3.430.2.7 Hospit a .3.209244 l .8 2021-11-13 2021-11-13 Transcribe [place], 1.2.840.1 [id number] 21 [id number] Methodi 00:00:00 00:00:00 Orders Jose Miguel G. 68060.1.[address] 3.430.2.7 Hospit a .3.168949 l .8 2021-11-05 2021-11-05 Outpatient Deshazo_T [facility] 71547 -2021 Devoted 12:00:00 12:00:00 0518 Medica l Group 2021-10-29 2021-10-29 Telephone Rosy, 1.2.840.1 [id number] Methodi 00:00:00 00:00:[address] Mohamed 3.430.2.7 Hospit a .3.321034 l .8 2021-10-29 2021-10-29 Telephone Rosy, 1.2.840.1 [id number] 762 [id number] Methodi 00:00:00 00:00:[address] Mohamed 3.430.2.7 Hospit a .3.732419 l .8 2021-08-20 2021-08-20 Outpatient Deshazo_T [facility] G 67630 -2021 Devoted 12:30:00 12:30:00 0302 Medica l Group 2021-07-08 2021-07-08 Office Ann, 1.2.840.1 [id number] Methodi 13:00:00 14:25:36 Visit Bessie 45794.1.[address] [place] 3.430.2.7 Hosp jo-ann .3.046812 l .8 2021-07-08 2021-07-08 Telephone Anthony, 1.2.840.1 [id number] 2100 [id number] Methodi 00:00:00 00:00:[address] 3.430.2.7 Hospit a .3.604061 l .8 2021-07-08 2021-07-08 Travel 1.2.840.1 1.2.307.032 0309 383273 Methodi 00:00:00 00:00:[address] 3.430.2.7 0.2.7.3.698 Ho spita .3.603735 084.8 l .8 2021-07-03 2021-07-03 CAV Melany 2.16.840. 2.16.840.1. CLAC X22YA7 Devoted 19:00:00 20:00:00 Vladimir 1.936528. 877884.4.6. 467 [facility] 4.6.62926 [id number] 2021-07-03 2021-07-03 Telephone Ann, 1.2.840.1 [id number] 2100 [id number] Methodi 00:00:00 00:00:[address] [facility] 3.430.2[facility] Hosp jo-ann .3.817254 l .8 2021-06-24 2021-06-24 Outpatient Deshazo_T [facility] 27504 -2021 Devoted 05:31:00 05:31:00 0104 Medica l Group 2021-06-23 2021-06-23 Telephone Anthony, 1.2.840.1 [id number] 2100 [id number] Methodi 00:00:00 00:00:[address] 3.430.2.7 Hospit a .3.669912 l .8 2021-06-04 2021-06-18 [facility] 1.2.840.1 1 74160 [id number] Methodi 18:20:00 18:13:00 Encounter Rachel Brasher 80051.1.[address] Holden Nagel 3.430.2.7 Hospita Shanda Shahid Kalen .3.698991 l Aurelio Schumacher .8 2021-06-16 2021-06-16 Anesthesia Yousif, 1.2.840.1 [id number] Methodi 23:59:59 23:59:59 Event Alesia Coelho 12422.1.[address] 3.430.2.7 Hospit a .3.573367 l .8 2021-06-16 2021-06-16 Surgery Diaz, 1.2.840.1 [id number] 1623 Methodi 13:30:00 17:45:[address] [facility] Hosp jo-ann .3.420985 l .8 2021-06-16 2021-06-16 Anesthesia Jose Carlos, 1.2.840.1 [id number] 698 [id number] Methodi 15:19:00 17:19:00 Event Arsenioayo 24254.1.1 309 s t V. 3.430.2.7 Hospit a .3.722440 l .8 2021-06-10 2021-06-10 Surgery Juwan You 1.2.840.1 [id number] 62451 30630 Methodi 08:00:00 10:30:[address] 3.430.2.7 Hospit a .3.542522 l .8 2021-06-10 2021-06-10 Anesthesia Doc, 1.2.840.1 [id number] 565 [id number] Methodi 08:26:00 09:40:00 Event Sofi 47299.1.[address] Marquita 3.430.2.7 Hosp jo-ann .3.428859 l .8 2021-06-09 2021-06-09 Prep for Robert, 1.2.840.1 [id number] 670 [id number] Methodi 00:00:00 00:00:00 Surgery Gayle 86829.1.[address] 3.430.2.7 Hospit a .3.730595 l .8 2021-06-09 2021-06-09 Prep for Jones, 1.2.840.1 [id number] 085 [id number] Methodi 00:00:00 00:00:00 Surgery Gayle 29467.1.[address] 3.430.2.7 Hospit a .3.614629 l .8 2021-06-05 2021-06-05 Anesthesia Frankie Chowdhurysherie 1.2.840.1 [id number] Methodi 10:16:00 11:41:00 Event RenoChandler olivares 58823.1.[address] 3.430.2.7 Hospit a .3.779653 l .8 2021-06-05 2021-06-05 Surgery Juwan You 1.2.840.1 [id number] 68602 75867 Methodi 09:30:00 11:05:[address] 3.430.2.7 Hospit a .3.601310 l .8 2021-06-03 2021-06-03 Prep for Anthony, 1.2.840.1 [id number] 83376 Methodi 00:00:00 00:00:00 Surgery Forrest 28421.1.[address] 3.430.2.7 Hospit a .3.470082 l .8 2021-06-03 2021-06-03 Telephone Adelita, 1.2.840.1 [id number] 475 [id number] Methodi 00:00:00 00:00:00 Crysandria 92121.1.1 218 s t 3.430.2.7 Hospit a .3.572556 l .8 2021-05-28 2021-05-28 Outpatient Anand_R DM DMG 83537-1 021 Devoted 05:00:00 05:00:00 1208 Medica l Group 2021-05-27 2021-05-27 Patient Tam, 1.2.840.1 [id number] Methodi 00:00:00 00:00:00 Outreach Maria M 65130.1.[address] 3.430.2.7 Hospit a .3.365645 l .8 2021-05-27 2021-05-27 Travel 1.2.840.1 1.2.275.958 6271 771348 Methodi 00:00:00 00:00:[address] 3.430.2.7 0.2.7.3.698 Ho spita .3.474435 084.8 l .8 2021-05-27 2021-05-27 Orders Boles, 1.2.840.1 [id number] 2100 [id number] Methodi 00:00:00 00:00:00 Only Anila 32012.1.[address] 3.430.2.7 Hospit a .3.026081 l .8 2021-05-26 2021-05-26 Outpatient Adams_R [facility] [address]-0 021 Devoted 03:30:00 03:30:00 1206 Medica l Group 2021-05-26 2021-05-26 Telephone Anthony, 1.2.840.1 [id number] 2099 [id number] Methodi 00:00:00 00:00:[address] 3.430.2.7 Hospit a .3.623664 l .8 2021-05-19 2021-05-25 [facility] [id number] 2099 [id number] Methodi 06:00:00 15:59:00 Encounter Tom Barber 30922.1.[address] AugustLisMarilu Arvin 3.430.2.7 Hospita .3.894409 l .8 2021-05-21 2021-05-21 Outpatient DMG DMG 23587-8 021 Devoted 03:30:00 03:30:00 1201 Medica l Group 2021-05-19 2021-05-19 Anesthesia Adam, 1.2.840.1 [id number] 21 [id number] Methodi 18:45:00 20:31:00 Event Sukhjinder 53176.1.[address] Kendall 3.430.2.7 Hospit a .3.096043 l .8 2021-05-19 2021-05-19 Surgery Juwan You 1.2.840.1 [id number] 34075 Methodi 18:50:00 19:55:[address] 3.430.2.7 Hospit a .3.542553 l .8 2021-05-19 2021-05-19 Anesthesia Adam Sukhjinder Kendall 1.2.840.1 [id number] Methodi 12:00:00 15:14:00 Event Hanane Ledezma 47957.1.[address] 3.430.2.7 Hospit a .3.064902 l .8 2021-05-19 2021-05-19 Surgery Juwan You 1.2.840.1 [id number] 85207 Methodi 12:05:00 14:45:[address] 3.430.2.7 Hospit a .3.100426 l .8 2021-05-19 2021-05-19 Travel 1.2.840.1 1.2.680.501 0258 966208 Methodi 00:00:00 00:00:[address] 3.430.2.7 0.2.7.3.698 Ho spita .3.286901 084.8 l .8 2021-05-14 2021-05-14 Telephone Corin, 1.2.840.1 [id number] Methodi 00:00:00 00:00:[address] 3.430.2.7 Hospit a .3.342345 l .8 2021-05-14 2021-05-14 Prep for Anthony, 1.2.840.1 [id number] 17757 Methodi 00:00:00 00:00:00 Surgery Forrest 07998.1.[address] 3.430.2.7 Hospit a .3.038102 l .8 2021-05-13 2021-05-13 Orders Doctor JOANNA 1.2.840.114 [id number] Univers 00:00:00 00:00:00 Only Unassigned, BEKA 350.1.13.10 ity of [place] [facility] 4.2.7.2.686 Baljinder as [phone] [place] [address] Branch 2021-05-12 2021-05-12 Office Juwan You 1.2.840.1 [id number] Methodi 09:00:00 09:32:[address] 3.430.2.7 Hospit a .3.891431 l .8 2021-05-12 2021-05-12 Outpatient KENYATTAJUWAN [facility] [id number] 9179 [place] 00:00:00 00:00:[address] 2021-05-12 2021-05-12 Telephone Anthony, 1.2.840.1 [id number] 2099 [id number] Methodi 00:00:00 00:00:[address] 3.430.2.7 Hospit a .3.139968 l .8 2021-05-12 2021-05-12 Travel 1.2.840.1 1.2.310.608 0473 771398 Methodi 00:00:00 00:00:[address] 3.430.2.7 0.2.7.3.698 spita .3.490254 084.8 l .8 2021-05-08 2021-05-08 Orders Anthony, 1.2.840.1 [id number] 2061 Methodi 00:00:00 00:00:00 Only Forrest 64116.1.[address] 3.430.2.7 Hospit a .3.801210 l .8 2021-05-08 2021-05-08 Telephone Ramana, 1.2.840.1 [id number] Methodi 00:00:00 00:00:[address] 3.430.2.7 Hospit a .3.447284 l .8 2021-05-05 2021-05-05 Office Juwan You 1.2.840.1 [id number] 80194 77328 Methodi 14:00:00 15:41:[address] 3.430.2.7 Hospit a .3.121036 l .8 2021-05-05 2021-05-05 Travel 1.2.840.1 1.2.209.985 3413 518039 Methodi 00:00:00 00:00:[address] 3.430.2.7 0.2.7.3.698 Ho spita .3.045581 084.8 l .8 2021-05-01 2021-05-01 Telephone Joe, 1.2.840.1 [id number] 2100 [id number] Methodi 00:00:00 00:00:[address] Diaz-Hsi 3.430.2.7 Hosp jo-ann .3.565746 l .8 2021-04-08 2021-04-08 [facility] [id number] 799 Univers 09:00:00 09:00:00 MONA low of [facility] 2021-03-24 2021-03-24 Transition Misha Garcia 1.2.840.114 878 48576 Univers 00:00:00 00:00:00 of Care Missy Guzman 350.1.13.10 it [place] [phone] [address] 2021-03-19 2021-03-21 [facility] [place] 1.2.840.1 1007 [id number] Univers 08:24:00 23:08:00 Encounter Eze Dias 68813.1.1 shoy of [place] 3.104.2.7 [place] .3.535882 Medica l .8 [place] 2021-03-21 2021-03-21 Outpatient DMG DMG 76380-6 021 Devoted 08:01:00 08:01:00 1001 Medica l Group 2021-03-19 2021-03-19 Orders Doctor 1.2.840.6 [id number] 74592 [id number] Univers 00:00:00 00:00:00 Only Unassigned, 78782.1.1 ity of [place] 3.104.2.7 [place] .3.528660 Medica l .8 Branch 2021-03-19 2021-03-19 Travel 1.2.840.1 1.2.123.880 5340 4264 Univers 00:00:00 00:00:00 51185.1.1 350.1.13.10 ity of 3.104.2.7 4.[place]7.3.698 [place] .3.645559 084.8 Medica l .8 Branch 2021-01-21 2021-01-29 Inpatient [facility] [id number] [facility] 15:50:00 20:14:[address] 2021-01-21 2021-01-29 Inpatient U [facility] 7512 [facility] 10:50:00 15:14:00 MONISHA 2021-01-21 2021-01-29 Outpatient [facility] [id number] 10:50:00 15:14:00 Monisha 12 2021-01-24 2021-01-24 Outpatient [facility] 75729-4 021 Devoted 08:00:00 08:00:00 0806 Medica l Group 2021-01-21 2021-01-21 Outpatient [facility] [id number] 10:50:00 10:50:00 Monisha 12 2021-01-03 2021-01-03 Office DOMINIQUE Diane 1.2.840.114 [id number] [place] 07:44:43 09:30:54 Visit Alexandr ALTMAN 350.1.13.58 H [facility] MEDICAL 9.2.7.2.686 [facility] [phone] 1 2021-01-03 2021-01-03 Office DOMINIQUE Diane 1.2.840.114 [id number] 07:44:43 09:30:54 Visit Alexandr ALTMAN 350.1.13.58 MEDICAL 9.2.7.2.686 [facility] [id number] 1 2020-12-26 2020-12-26 [facility] [id number] Univers 10:30:00 10:30:00 SENDIL [facility] 2020-12-24 2020-12-25 Outpatient nullFlavo Digestive 111 [id number] Memoria 15:32:00 04:59:00 r Disease 11 l Center Vin 2020-12-24 2020-12-24 Outpatient Wright, [facility] [id number] 10:32:00 23:59:00 Wong Clark Madden 2020-12-24 2020-12-24 Outpatient WRIGHT, [facility] 7511 [facility] 10:32:00 23:59:00 WONG 2020-11-12 2020-11-12 Outpatient R CARLOS [facility] [id number] Univers 09:00:00 09:00:00 JOSE LUIS [facility] 2020-10-27 2020-10-27 [facility] 1.2.840.114 [id number] 98 00:00:00 00:00:00 (Out) Oz Lehman 350.1.13.10 [place] 4.2.7.2.686 Professio [phone] [address] 2020-10-27 2020-10-27 [facility] 1.2.840.114 [id number] 98 Univers 00:00:00 00:00:00 (Out) Oz Lehman 350.1.13.10 [facility] [place].7.2.[place] [phone] Ar dical [address] 2020-10-24 2020-10-24 Orders Doctor MARSHALL 1.2.840.114 [id number] 42 00:00:00 00:00:00 Only Unassigned, BEKA 350.1.13.10 [place] [facility] 4.2.7.2.686 [id number] 009 2020-10-24 2020-10-24 Orders Doctor MARSHALL 1.2.840.114 [id number] 42 Univers 00:00:00 00:00:00 Only Unassigned, BEKA 350.1.13.10 ity of [place] [facility] 4.2.7.2.686 Baljinder as [phone] [facility] 009 [place] 2020-09-24 2020-09-24 [facility] 1.2.840.114 [id number] 24 00:00:00 00:00:00 [place] 350.1.13.10 [place] 4.2.7.2.686 Professio [phone] [facility] 220 [facility] 2020-09-24 2020-09-24 [facility] 1.2.840.114 [id number] 24 Univers 00:00:00 00:00:00 [facility] 350.1.13.10 [place] [phone] Ar dicpr nal 220 [facility] 2020-09-09 2020-09-09 Patient Daniel [facility] 1.2.840.114 [id number] 44 00:00:00 00:00:00 Outreach Earl PRIMARY 350.1.13.10 Manuel [facility] 4.2.7.2.686 PAVILLION [phone] 388 2020-09-09 2020-09-09 Patient Daniel [facility] 1.2.840.114 [id number] Univers 00:00:00 00:00:00 Outreach Earl PRIMARY 350.1.13.10 i ty of [facility] [place].7.2.[place] [phone] Ar dical 388 [place] 2020-08-06 2020-08-06 Outpatient R CARLOS [facility] [id number] Univers 14:30:00 14:30:00 [facility] 2020-08-05 2020-08-05 Outpatient R BLACK [facility] [id number] Univers 13:30:00 13:30:00 DEJA ity [facility] 2020-07-23 2020-07-23 [facility] 1.2.840.114 [id number] [id number] Univers 13:39:08 23:59:00 Encounter Deja PRIMARY 350.1.13.10 ity of [place].2.[place] [phone] Ar dical 807 [place] 2020-07-23 2020-07-23 [facility] 1.2.939.984 7413 5976 13:31:20 14:37:36 Visit Deja PRIMARY 350.1.13.10 A CARE 4.2.7.2.686 PAVILLION [phone] [facility] 2020-07-23 2020-07-23 [facility] 1.2.287.943 0703 5976 [facility] 13:31:20 14:37:36 Visit Deja PRIMARY 350.1.13.10 ity of [place] [phone] [facility] 198 [place] 2020-07-23 2020-07-23 [facility] 65721 [id number] Univers 13:30:00 13:30:00 DEJA ity of [facility] 2020-07-09 2020-07-09 Outpatient R [facility] [id number] Univers 09:00:00 09:00:00 ity of [facility] 2020-07-03 2020-07-03 [facility] [id number] Univers 00:00:00 00:00:00 Oz Lehman [id number] [id number] [phone] [facility] nal [address] [facility] 2020-06-27 2020-06-27 [facility] 1.2.840.114 [id number] Univers 10:05:43 11:00:00 Visit Oz Lehman [id number] [id number] [phone] Ar dicpr nal 059 [facility] 2020-06-27 2020-06-27 [facility] 1.2.840.114 [id number] Univers 10:05:43 11:00:00 Visit Oz LEHMAN [id number] [id number] [phone] Ar dicpr NAL [address] [place] [address] 2020-06-27 2020-06-27 Outpatient R LAMIN [facility] [id number] Univers 09:30:00 11:00:00 SENDIL ity of [facility] 2020-06-27 2020-06-27 [facility] [id number] Univers 09:30:00 09:30:00 SENDIL ity [facility] 2020-05-28 2020-05-28 Laboratory Pc, Adc Echo Room 1 - [facility] [id number] .2.840.114 [id number] Univers 08:01:11 08:48:06 Only Oz Kimble 350.1.13. 10 [id number] [phone] [facility] nal [address] [place] [address] 2020-05-28 2020-05-28 Outpatient R [facility] [id number] Univers 08:00:00 08:00:00 ity [facility] 2020-05-10 2020-05-10 Nurse Visit, Adc Nurse [facility] 1.2.840.1 [id number] Univers 08:31:07 08:43:46 Visit Oz Kimble 350.1.13. 10 [id number] [phone] [facility] nal [address] [place] [address] 2020-05-10 2020-05-10 Outpatient R LAMIN [facility] [id number] Univers 08:30:00 08:30:00 SENDIL ity [facility] 2020-05-07 2020-05-07 Outpatient R [facility] [id number] Univers 08:00:00 08:00:00 ity of [facility] 2020-05-01 2020-05-01 Office Gonzalez, [facility] 1.2.840.114 [id number] Univers 11:02:55 12:04:48 Visit Jose Luis Lehman 350.1.13.10 i [id number] [phone] Ar dical nal [address] [facility] 2020-05-01 2020-05-01 Outpatient R CARLOS [facility] [id number] Univers 10:30:00 10:30:00 WENTONG ity [facility] 2020-04-25 2020-04-25 Office Lamin [facility] 1.2.840.114 [id number] Univers 10:07:58 10:48:50 Visit Sendil Mami [facility] [id number] [id number] [phone] Ar dical nal 059 [facility] 2020-04-25 2020-04-25 [facility] [id number] Univers 10:00:00 10:00:00 SENDIL ity [facility] 2020-04-25 2020-04-25 Orders Doctor MARSHALL 1..840.114 [id number] Univers 00:00:00 00:00:00 Only Unassigned, BEKA [id number] ity of [place] [facility] [id number] Baljinder as [phone] [address] 2020-04-05 2020-04-05 Outpatient R LAMIN [facility] [id number] Univers 09:30:00 09:30:00 SENDIL itcaron [facility] 2020-04-03 2020-04-03 Product Consultant 2, Adc Lab [facility] 1..840.114 [id number] Univers 13:13:38 13:28:38 Visit Mona Bhat 350.1.13.10 [place] [phone] Ar dical nal 353 [facility] 2020-04-03 2020-04-03 [facility] [id number] Univers 13:00:00 13:00:00 MONA low [facility] 2020-04-02 2020-04-02 Office Casey [facility] 1.2.840.114 [id number] Univers 09:00:33 09:54:22 Visit Mona Lehman 350.1.13.10 [place] [phone] Ar dical [facility] 134 [facility] 2020-04-02 2020-04-02 Outpatient R PRITI, [facility] [id number] Univers 08:30:00 08:30:00 MONA ity [facility] 2020-04-02 2020-04-02 Outpatient R [facility] [id number] Univers 08:30:00 08:30:00 MONA itcaron [facility] 2020-04-02 2020-04-02 [facility] 1.2.840.114 [id number] Univers 00:24:00 01:09:00 Marlin Levi 350.1.13.10 i [place] [phone] [facility] [address] [place] 2020-04-02 2020-04-02 Orders Doctor JOANNA 1.2.840.114 [id number] Univers 00:00:00 00:00:00 Only Unassigned, BEKA 350.1.13.10 ity of [place] [facility] 4.2.7.2.686 Baljinder as [phone] [facility] [address] [place] 2020-03-16 2020-03-16 Telephone [facility] 1.2.840.114 [id number] Univers 00:00:00 00:00:00 Yury Lehman 350.1.13.10 [place] [phone] Ar dical nal 134 [facility] 2020-03-08 2020-03-08 Outpatient R [facility] [id number] Univers 11:00:00 11:00:00 LIMA currie [facility] 2020-03-07 2020-03-07 Telephone [facility] 1.2.840.114 [id number] Univers 00:00:00 00:00:00 Lima Lehman 350.1.13.10 [id number] [phone] Ar dical nal 188 [facility] 2020-02-06 2020-02-06 Outpatient R DORA [facility] [id number] Univers 09:30:00 09:30:00 BRANDON [facility] 2020-02-06 2020-02-06 [facility] 1.2.840.114 [id number] Univers 08:57:01 09:24:05 Visit Brandon Lehman 350.1.13.10 i ty of [place] 4.2.7.2.686 Baljinder grupo [facility] [phone] Ar dical nal 044 [facility] 2020-01-25 2020-01-31 Inpatient 1 Rei Waldron [facility] GPY [id number] 21:31:00 18:15:[address] [facility] 2020-01-24 2020-01-24 Outpatient [facility] [id number] Univers 09:45:00 09:45:00 [facility] 2020-01-23 2020-01-23 Outpatient Eduin [facility] [id number] Univers 10:30:00 10:30:00 [facility] 2019-12-18 2019-12-18 Out[facility] [id number] Univers 08:00:00 08:00:00 YISSEL ity [facility] 2019-12-04 2019-12-04 [facility] [id number] Univers 14:15:00 14:15:00 BRANDON [facility] 2019-11-06 2019-11-06 TelemedicNIDHI AyalaIT 1.2.840.114 [id number] Univers 07:49:37 08:46:52 ne Visit Yissel Parr 350.1.13.10 ity of 4.2.7.2.686 Baljinder as BANK [phone] [facility] BLDG. [address] [place] 2019-11-06 2019-11-06 Outpatient Eduin RUST [facility] [id number] Univers 08:00:00 08:00:00 YISSEL ity [facility] 2019-10-01 2019-10-01 Emergency [facility] 1.2.172.042 [id number] Univers 15:47:29 19:01:00 Stacie Lehman 350.1.13.10 i ty [place] [phone] [address] 2019-09-05 2019-09-05 Outpatient R DORA [facility] [id number] Univers 13:30:00 13:30:00 BRANDON [facility] 2019-08-28 2019-08-28 Outpatient R ZEKE RUVALCABA [facility] [id number] Univers 15:00:00 15:00:00 [facility] 2019-02-27 2019-02-27 Telephone [facility] 1.2.840.114 [id number] Univers 00:00:00 00:00:00 Adán T SPECIALTY 350.1.13.10 it[id number] AT [phone] [facility] 188 [facility] 2019-02-25 2019-02-25 Telephone [facility] 1.2.840.114 [id number] Univers 00:00:00 00:00:00 Adán T SPECIALTY 350.1.13.10 [id number] AT [phone] [facility] 205 [facility] 2019-02-22 2019-02-22 [facility] 1.2.8 40.114 [id number] Univers 09:19:22 23:59:00 Encounter Outpt-Josy, Ccl Beka 350.1.13.10 ity of Hospital 4.2.7.2.686 Baljinder as [phone] [address] 2019-02-22 2019-02-22 [facility] 1.2.8 40.114 [id number] Univers 08:00:00 09:18:00 Encounter Outpt-Josy, Ccl Gallant 350.1.13.10 ity of [facility] 4.2.7.2.686 Baljinder as [phone] [address] 2019-02-17 2019-02-17 Office Germán [facility] 1.2.840.114 [id number] Univers 13:09:08 13:54:39 Visit isaacGary 350.1.13.10 it[place] C[place] [phone] [facility] [address] 2019-02-17 2019-02-17 Orders Doctor JOANNA 1.2.840.114 [id number] Univers 00:00:00 00:00:00 Only Unassigned, BEKA 350.1.13.10 ity of [place] [facility] 4.2.7.2.686 Baljinder as [phone] [facility] [address] 2019-01-25 2019-01-25 Telephone Traci Kimble 1.2.788.598 [id number] Univers 00:00:00 00:00:00 Oz [place] 350.1.13.10 ity of Hospital 4.2.7.2.686 Baljinder as [phone] [facility] [address] 2019-01-25 2019-01-25 Telephone Traci Kimble 1.2.917.816 [id number] Univers 00:00:00 00:00:00 Oz [place] 350.1.13.10 ity of Hospital 4.2.7.2.686 Baljinder as [phone] [facility] [address] [place] 2019-01-20 2019-01-20 Office Lamin [facility] 1.2.840.114 [id number] Univers 08:55:54 09:56:43 Visit Oz Lehman 350.1.13.10 [place] [phone] Ar dical nal [address] [facility] 2019-01-14 2019-01-15 Emergency [place]under[place], TRAUMA 1.2.840.114 [id number] Univers 18:20:35 00:24:00 Brandon IBANEZ 350.1.13.10 it [place] [phone] [facility] [address] 2019-01-13 2019-01-13 Office Digna [facility] 1.2.840.114 [id number] Univers 08:10:44 09:19:41 Visit Lima Lehman 350.1.13.10 [facility] [place] 4.2.7.2.686 Amisha lombardo [place] [phone] Ar dical nal 205 [facility] 2018-05-24 2018-05-24 Outpatient SARAHY DORADO [facility] [id number] [facility] 00:00:00 00:00:00 LY 2016-07-24 2016-07-30 Inpatient nullFlavo [facility] [id number] Memoria 02:04:00 16:20:[address] 2016-07-23 2016-07-30 Outpatient Aleksradha, [facility] [id number] 20:04:00 10:20:00 Luna 10 2016-06-10 2016-06-15 Inpatient nullFlavo [facility] [id number] Memoria 16:02:00 18:23:[address] 2016-06-10 2016-06-15 Outpatient Franck [facility] [id number] 10:02:00 12:23:00 Joe Yan 09 2014-06-26 2014-06-26 nullFlavo [facility] [id number] Memoria 05:25:00 15:14:00 Emergency r [address] 2014-06-25 2014-06-26 Outpatient Courtney, 2.16.840. 2.16.840. 1. [id number] 23:25:00 09:14:00 Atul [id number]. [id number] Cem 3.615.0.1 5.0.353 01 9255-10-25 2013-04-15 [facility] [id number] Memoria 21:04:00 01:45:00 r [facility] 07 [facility] 2013-04-14 2013-04-15 Outpatient 2.16.840. 2.16.840.1. 4 [id number] Memoria 21:04:00 01:45:00 1.571156. [id number] l 3.615.0.1 5.0.101 Jake gonzalez [address] [place] [address] 2013-04-14 2013-04-15 Outpatient 2.16.840. 2.16.840.1. 4 [id number] Memoria 21:04:00 01:45:00 1.071007. [id number] 07 l 3.615.0.1 5.0.101 Jake n [facility] 2013-04-14 2013-04-15 Outpatient 2.16.840. 2.16.840.1. 4 [id number] Memoria 21:04:00 01:45:00 [id number]. [id number] 07 l 3.615.0.1 5.0.101 Jake n [facility] 2013-04-14 2013-04-15 Outpatient 2.16.840. 2.16.840.1. 4 [id number] Memoria 21:04:00 01:45:00 [id number]. [id number] 07 l 3.615.0.1 5.0.101 Jake n [facility] 2013-04-14 2013-04-15 Outpatient 2.16.840. 2.16.840.1. 4 [id number] Memoria 21:04:00 01:45:00 [id number]. [id number] 07 l 3.615.0.1 5.0.101 Jake n [facility] 2012-03-14 2012-03-14 Emergency nullFlavo [id number] Memoria 16:32:00 22:39:00 r [facility] 04 [facility] 2011-11-28 2011-11-30 OU nullFlavo [facility] [id number] Memoria 12:16:00 20:40:00 r [facility] 03 [facility] 2011-09-18 2011-09-18 Emergency nullFlavo [facility] [id number] Memoria 08:23:00 13:34:00 r [facility] 02 [facility] 2011-09-01 2011-09-09 Inpatient nullFlavo [facility] [id number] Memoria 01:40:00 15:00:00 r [facility] 01 [facility] 2011-08-19 2011-08-23 Inpatient nullFlavo [facility] [id number] Memoria 14:25:00 15:28:00 r [facility] 00 l [facility] Results Test Description Test Time Test Comments Results Result Comments Source AFB culture 2021-07-22 18:13:19 Test Item Value Reference Range Interpretation Comme nts AFB culture isolate No growth after 6 weeks of Specimen InformationSpecimen (test code = 543-9) incubation. Source: DrainageSpecimen Site: Thigh: infected wound right thigh [facility] [id number] 18:13:19 Test Item Value Reference Range Interpretation Comments AFB culture No growth Specimen isolate (test after 6 weeks InformationSp ecimen code = 543-9) of Source: [place] geSpecimen incubation. Site: Thigh: in fected wound right [facility] [place] [id number] 18:13:19 Test Item Value Reference Range Interpretation Comments AFB culture No growth Specimen isolate (test after 6 weeks InformationSp ecimen code = 543-9) of Source: [place] geSpecimen incubation. Site: Thigh: in fected wound right [facility] [place] [id number] 18:13:19 Test Item Value Reference Range Interpretation Comments AFB culture No growth Specimen isolate (test after 6 weeks InformationSp ecimen code = 543-9) of Source: [place] geSpecimen incubation. Site: Thigh: in fected wound right [facility] [place] [id number] 18:13:19 Test Item Value Reference Range Interpretation Comments AFB culture No growth Specimen isolate (test after 6 weeks InformationSp ecimen code = 543-9) of Source: [place] geSpecimen incubation. Site: Thigh: in fected wound right [facility] [place] [id number] 18:13:19 Test Item Value Reference Range Interpretation Comments AFB culture No growth Specimen isolate (test after 6 weeks InformationSp ecimen code = 543-9) of Source: [place] geSpecimen incubation. Site: Thigh: in fected wound right [facility]2022-02-01 18:13:19 Test Item Value Reference Range Interpretation Comments AFB culture No growth Specimen isolate (test after 6 weeks InformationSp ecimen code = 543-9) of Source: [place] geSpecimen incubation. Site: Thigh: in fected wound right [facility] [place] [id number] 18:13:19 Test Item Value Reference Range Interpretation Comments AFB culture No growth Specimen isolate (test after 6 weeks InformationSp ecimen code = 543-9) of Source: [place] geSpecimen incubation. Site: Thigh: in fected wound right [facility] [place] [id number] 18:13:19 Test Item Value Reference Range Interpretation Comments AFB culture No growth Specimen isolate (test after 6 weeks InformationSp ecimen code = 543-9) of Source: [place] geSpecimen incubation. Site: Thigh: in fected wound right [facility] [place] [id number] 18:13:19 Test Item Value Reference Range Interpretation Comments AFB culture No growth Specimen isolate (test after 6 weeks InformationSp ecimen code = 543-9) of Source: [place] geSpecimen incubation. Site: Thigh: in fected wound right [facility] [place] [id number] 18:13:19 Test Item Value Reference Range Interpretation Comments AFB culture No growth Specimen isolate (test after 6 weeks InformationSp ecimen code = 543-9) of Source: [place] geSpecimen incubation. Site: Thigh: in fected wound right [facility] [id number] 18:15:13 Test Item Value Reference Range Interpretation Comments Fungus culture No growth Specimen isolate (test after 4 weeks InformationSp ecimen code = 1441) of Source: TissueS pecimen incubation. Site: Thigh [facility]2022-01-25 18:15:13 Test Item Value Reference Range Interpretation Comments Fungus culture No growth Specimen isolate (test after 4 weeks InformationSp ecimen code = 1441) of Source: TissueS pecimen incubation. Site: Thigh [facility] [id number] 18:15:13 Test Item Value Reference Range Interpretation Comments Fungus culture No growth Specimen isolate (test after 4 weeks InformationSp ecimen code = 1441) of Source: TissueS pecimen incubation. Site: Thigh [facility] [id number] 18:15:13 Test Item Value Reference Range Interpretation Comments Fungus culture No growth Specimen isolate (test after 4 weeks InformationSp ecimen code = 1441) of Source: TissueS pecimen incubation. [facility] [id number] 18:15:13 Test Item Value Reference Range Interpretation Comments Fungus culture No growth Specimen isolate (test after 4 weeks InformationSp ecimen code = 1441) of Source: TissueS pecimen incubation. Site: [place] [id number] 18:15:13 Test Item Value Reference Range Interpretation Comments Fungus culture No growth Specimen isolate (test after 4 weeks InformationSp ecimen code = 1441) of Source: TissueS pecimen incubation. Site: [facility]2022-01-25 18:15:13 Test Item Value Reference Range Interpretation Comments Fungus culture No growth Specimen isolate (test after 4 weeks InformationSp ecimen code = 1441) of Source: TissueS pecimen incubation. Site: [facility]2022-01-25 18:15:13 Test Item Value Reference Range Interpretation Comments Fungus culture No growth Specimen isolate (test after 4 weeks InformationSp ecimen code = 1441) of Source: TissueS pecimen incubation. Site: [facility]2022-01-25 18:15:13 Test Item Value Reference Range Interpretation Comments Fungus culture No growth Specimen isolate (test after 4 weeks InformationSp ecimen code = 1441) of Source: TissueS pecimen incubation. Site: [facility]2022-01-25 18:15:13 Test Item Value Reference Range Interpretation Comments Fungus culture No growth Specimen isolate (test after 4 weeks InformationSp ecimen code = 1441) of Source: TissueS pecimen incubation. Site: [facility]2022-01-25 18:15:13 Test Item Value Reference Range Interpretation Comments Fungus culture No growth Specimen isolate (test after 4 weeks InformationSp ecimen code = 1441) of Source: TissueS pecimen incubation. Site: [place] [id number] 18:15:13 Test Item Value Reference Range Interpretation Comments Fungus culture No growth Specimen isolate (test after 4 weeks InformationSp ecimen code = 1441) of Source: TissueS pecimen incubation. Site: [place] [id number] 18:15:13 Test Item Value Reference Range Interpretation Comments Fungus culture No growth Specimen isolate (test after 4 weeks InformationSp ecimen code = 1441) of Source: TissueS pecimen incubation. Site: [place] [id number] 14:31:13 Test Item Value Reference Range Interpretation Comments Anaerobic No anaerobic Specimen culture isolate organisms InformationS pecimen (test code = isolated. Source: TissueS pecimen 552) Site: [address]01[address]01 14:31:13 Test Item Value Reference Range Interpretation Comments Anaerobic No anaerobic Specimen culture isolate organisms InformationS pecimen (test code = isolated. Source: TissueS pecimen 552) Site: [address]01 14:31:13 Test Item Value Reference Range Interpretation Comments Anaerobic No anaerobic Specimen culture isolate organisms InformationS pecimen (test code = isolated. Source: TissueS pecimen 552) Site: [place] [address]-01-01 14:31:13 Test Item Value Reference Range Interpretation Comments Anaerobic No anaerobic Specimen culture isolate organisms InformationS pecimen (test code = isolated. Source: TissueS pecimen 552) Site: [place] 092122-01-01 14:31:13 Test Item Value Reference Range Interpretation Comments Anaerobic No anaerobic Specimen culture isolate organisms InformationS pecimen (test code = isolated. Source: TissueS pecimen 552) Site: [place] 092122-01-01 14:31:13 Test Item Value Reference Range Interpretation Comments Anaerobic No anaerobic Specimen culture isolate organisms InformationS pecimen (test code = isolated. Source: TissueS pecimen 552) Site: [place] 092122-01-01 14:31:13 Test Item Value Reference Range Interpretation Comments Anaerobic No anaerobic Specimen culture isolate organisms InformationS pecimen (test code = isolated. Source: TissueS pecimen 552) Site: [place] [address]-01-01 14:31:13 Test Item Value Reference Range Interpretation Comments Anaerobic No anaerobic Specimen culture isolate organisms InformationS pecimen (test code = isolated. Source: TissueS pecimen 552) Site: [place] 092122-01-01 14:31:13 Test Item Value Reference Range Interpretation Comments Anaerobic No anaerobic Specimen culture isolate organisms InformationS pecimen (test code = isolated. Source: TissueS pecimen 552) Site: [facility] [id number] 14:31:13 Test Item Value Reference Range Interpretation Comments Anaerobic No anaerobic Specimen culture isolate organisms InformationS pecimen (test code = isolated. Source: TissueS pecimen 552) Site: [facility] [id number] 14:31:13 Test Item Value Reference Range Interpretation Comments Anaerobic No anaerobic Specimen culture isolate organisms InformationS pecimen (test code = isolated. Source: TissueS pecimen 552) Site: [facility] [id number] 14:31:13 Test Item Value Reference Range Interpretation Comments Anaerobic No anaerobic Specimen culture isolate organisms InformationS pecimen (test code = isolated. Source: TissueS pecimen 552) Site: [facility] [id number] 14:31:13 Test Item Value Reference Range Interpretation Comments Anaerobic No anaerobic Specimen culture isolate organisms InformationS pecimen (test code = isolated. Source: TissueS pecimen 552) Site: [facility] [id number] 16:51:58 Test Item Value Reference Range Interpretation Comments Gram stain No WBC's or Specimen isolate (test organisms seen. Information Specimen code = 1469) Source: [facility]S pe[facility]imen [facility] [id number] 16:51:58 Test Item Value Reference Range Interpretation Comments Aerobic culture No growth Specimen isolate (test after 3 days. InformationSp ecimen code = 498) Source: TissueS pecimen [facility] [id number] 16:51:58 Test Item Value Reference Range Interpretation Comments Fungus smear No fungi Specimen (test code = observed. InformationSpec imen Source: 1443) [facility]Specimen [facility] [id number] 16:51:58 Test Item Value Reference Range Interpretation Comments Gram stain No WBC's or Specimen isolate (test organisms seen. Information Specimen code = 1469) Source: TissueS pecimen [facility] [id number] 16:51:58 Test Item Value Reference Range Interpretation Comments Aerobic culture No growth Specimen isolate (test after 3 days. InformationSp ecimen code = 498) Source: [facility] [id number] 16:51:58 Test Item Value Reference Range Interpretation Comments Fungus smear No fungi Specimen (test code = observed. InformationSpec imen Source: 1443) TissueSpecimen Site: [facility] [id number] 16:51:58 Test Item Value Reference Range Interpretation Comments Gram stain No WBC's or Specimen isolate (test organisms seen. Information Specimen code = 1469) Source: [facility] [id number] 16:51:58 Test Item Value Reference Range Interpretation Comments Aerobic culture No growth Specimen isolate (test after 3 days. InformationSp ecimen code = 498) Source: [facility] Site: [facility] [id number] 16:51:58 Test Item Value Reference Range Interpretation Comments Fungus smear No fungi Specimen (test code = observed. InformationSpec imen Source: 1443) TissueSpecime Site: [facility]2021-12-31 16:51:58 Test Item Value Reference Range Interpretation Comments Gram stain No WBC's or Specimen isolate (test organisms seen. Information Specimen code = 1469) Source: [facility] [id number] 16:51:58 Test Item Value Reference Range Interpretation Comments Aerobic culture No growth Specimen isolate (test after 3 days. InformationSp ecimen code = 498) Source: [facility] Site: [facility] [id number] 16:51:58 Test Item Value Reference Range Interpretation Comments Fungus smear No fungi Specimen (test code = observed. InformationSpec imen Source: 1443) TissueSpecimen Site: [facility] [id number] 16:51:58 Test Item Value Reference Range Interpretation Comments Gram stain No WBC's or Specimen isolate (test organisms seen. Information Specimen code = 1469) Source: [facility] [id number] 16:51:58 Test Item Value Reference Range Interpretation Comments Aerobic culture No growth Specimen isolate (test after 3 days. InformationSp ecimen code = 498) Source: [facility] Site: [facility] [id number] 16:51:58 Test Item Value Reference Range Interpretation Comments Fungus smear No fungi Specimen (test code = observed. InformationSpec imen Source: 1443) [facility]: [facility]2021-12-31 16:51:58 Test Item Value Reference Range Interpretation Comments Gram stain No WBC's or Specimen isolate (test organisms seen. Information Specimen code = 1469) Source: [facility] Site: [facility]2021-12-31 16:51:58 Test Item Value Reference Range Interpretation Comments Aerobic culture No growth Specimen isolate (test after 3 days. InformationSp ecimen code = 498) Source: [facility] Site: [facility]2021-12-31 16:51:58 Test Item Value Reference Range Interpretation Comments Fungus smear No fungi Specimen (test code = observed. InformationSpec imen Source: 1443) [facility] Site: [facility]2021-12-31 16:51:58 Test Item Value Reference Range Interpretation Comments Gram stain No WBC's or Specimen isolate (test organisms seen. Information Specimen code = 1469) Source: [facility] [facility]2021-12-31 16:51:58 Test Item Value Reference Range Interpretation Comments Aerobic culture No growth Specimen isolate (test after 3 days. InformationSp ecimen code = 498) Source: [facility] Site: [facility]2021-12-31 16:51:58 Test Item Value Reference Range Interpretation Comments Fungus smear No fungi Specimen (test code = observed. InformationSpec imen Source: 1443) [facility] Site: [facility]2021-12-31 16:51:58 Test Item Value Reference Range Interpretation Comments Gram stain No WBC's or Specimen isolate (test organisms seen. Information Specimen code = 1469) Source: [facility] Site: [facility]2021-12-31 16:51:58 Test Item Value Reference Range Interpretation Comments Aerobic culture No growth Specimen isolate (test after 3 days. InformationSp ecimen code = 498) Source: [facility] Site: [facility]2021-12-31 16:51:58 Test Item Value Reference Range Interpretation Comments Fungus smear No fungi Specimen (test code = observed. InformationSpec imen Source: 1443) TissueSpecimen Site: [facility] [id number] 16:51:58 Test Item Value Reference Range Interpretation Comments Gram stain No WBC's or Specimen isolate (test organisms seen. Information Specimen code = 1469) [facility]: [facility] [id number] 16:51:58 Test Item Value Reference Range Interpretation Comments Aerobic culture No growth Specimen isolate (test after 3 days. InformationSp ecimen code = 498) Source: [facility] Site: [facility] [id number] 16:51:58 Test Item Value Reference Range Interpretation Comments Fungus smear No fungi Specimen (test code = observed. InformationSpec imen Source: 1443) [facility] Site: [facility]2021-12-31 16:51:58 Test Item Value Reference Range Interpretation Comments Gram stain No WBC's or Specimen isolate (test organisms seen. Information Specimen code = 1469) Source: [facility] Site: [facility] [id number] 16:51:58 Test Item Value Reference Range Interpretation Comments Aerobic culture No growth Specimen isolate (test after 3 days. InformationSp ecimen code = 498) Source: [facility] Site: [facility]2021-12-31 16:51:58 Test Item Value Reference Range Interpretation Comments Fungus smear No fungi Specimen (test code = observed. InformationSpec imen Source: 1443) [facility] Site: [facility] [id number] 16:51:58 Test Item Value Reference Range Interpretation Comments Gram stain No WBC's or Specimen isolate (test organisms seen. Information Specimen code = 1469) Source: [facility] [id number] 16:51:58 Test Item Value Reference Range Interpretation Comments Aerobic culture No growth Specimen isolate (test after 3 days. InformationSp ecimen code = 498) Source: [facility] Site: [facility] [id number] 16:51:58 Test Item Value Reference Range Interpretation Comments Fungus smear No fungi Specimen (test code = observed. InformationSpec imen Source: 1443) [facility] [id number] 16:51:58 Test Item Value Reference Range Interpretation Comments Gram stain No WBC's or Specimen isolate (test organisms seen. Information Specimen code = 1469) [facility] [id number] 16:51:58 Test Item Value Reference Range Interpretation Comments Aerobic culture No growth Specimen isolate (test after 3 days. InformationSp ecimen code = 498) Source: [facility] pecimen [facility] [id number] 16:51:58 Test Item Value Reference Range Interpretation Comments Fungus smear No fungi Specimen (test code = observed. InformationBuySimple Source: 1443) TissueSpecimen Site: [facility] [id number] 16:51:58 Test Item Value Reference Range Interpretation Comments Gram stain No WBC's or Specimen isolate (test organisms seen. Information Specimen code = 1469) Source: [facility] [id number] 16:51:58 Test Item Value Reference Range Interpretation Comments Aerobic culture No growth Specimen isolate (test after 3 days. InformationSp ecimen code = 498) Source: [facility] [id number] 16:51:58 Test Item Value Reference Range Interpretation Comments Fungus smear No fungi Specimen (test code = observed. Let Source: 1443) TissueSpecimen Site: [facility] [id number] 17:00:57 Test Item Value Reference Range Interpretation Comments POC glucose (test code 79 mg/dL 65-99 Opera tor Name: Eboni = 91460-1) AmiDevice ID: [id number] [facility] [id number] 17:00:57 Test Item Value Reference Range Interpretation Comments POC glucose (test code 79 mg/dL 65-99 Opera tor Name: Eboni = 26535-0) AmiDevice ID: [id number] [facility] [id number] 17:00:57 Test Item Value Reference Range Interpretation Comments POC glucose (test code 79 mg/dL 65-99 Opera tor Name: Eboni = 65548-5) AmiDevice ID: [id number] [facility] [id number] 17:00:57 Test Item Value Reference Range Interpretation Comments POC glucose (test code 79 mg/dL 65-99 Opera tor Name: Eboni = 32172-3) AmiDevice ID: [id number] [facility] [id number] 17:00:57 Test Item Value Reference Range Interpretation Comments POC glucose (test code 79 mg/dL 65-99 Opera tor Name: Eboni = 81698-7) AmiDevice ID: [id number] [facility] [id number] 17:00:57 Test Item Value Reference Range Interpretation Comments POC glucose (test code 79 mg/dL 65-99 Opera tor Name: Eboni = 57169-1) AmiDevice ID: [id number] [facility]2021-12-29 17:00:57 Test Item Value Reference Range Interpretation Comments POC glucose (test code 79 mg/dL 65-99 Opera tor Name: Eboni = 68366-9) AmiDevice ID: [id number] [facility]2021-12-29 17:00:57 Test Item Value Reference Range Interpretation Comments POC glucose (test code 79 mg/dL 65-99 Opera tor Name: Eboni = 26708-8) AmiDevice ID: [id number] [facility]2021-12-29 17:00:57 Test Item Value Reference Range Interpretation Comments POC glucose (test code 79 mg/dL 65-99 Opera tor Name: Eboni = 74438-9) AmiDevice ID: [id number] [facility]2021-12-29 17:00:57 Test Item Value Reference Range Interpretation Comments POC glucose (test code 79 mg/dL 65-99 Opera tor Name: Eboni = 10230-6) AmiDevice ID: [id number] [facility]2021-12-29 17:00:57 Test Item Value Reference Range Interpretation Comments POC glucose (test code 79 mg/dL 65-99 Opera tor Name: Eboni = 10381-0) AmiDevice ID: [id number] [facility]2021-12-29 17:00:57 Test Item Value Reference Range Interpretation Comments POC glucose (test code 79 mg/dL 65-99 Opera tor Name: Eboni = 34139-5) AmiDevice ID: [id number] [facility]2021-12-29 17:00:57 Test Item Value Reference Range Interpretation Comments POC glucose (test code 79 mg/dL 65-99 Opera tor Name: Eboni = 95560-2) AmiDevice ID: [id number] [facility] , [id number] 20:46:00 Test Item Value Reference Range Interpretation Comments test urine, POC (test Negative code = 1710228) Internal QC (test code = 257) QC acceptable [facility] , [id number] 20:46:00 Test Item Value Reference Range Interpretation Comments test urine, POC (test Negative code = 5128847) Internal QC (test code = 257) QC acceptable [facility], [id number] 20:46:00 Test Item Value Reference Range Interpretation Comments test urine, POC (test Negative code = 9327593) Internal QC (test code = 257) QC acceptable [facility] , [id number] 20:46:00 Test Item Value Reference Range Interpretation Comments test urine, POC (test Negative code = 2330712) Internal QC (test code = 257) QC acceptable [facility] , [id number] 20:46:00 Test Item Value Reference Range Interpretation Comments test urine, POC (test Negative code = 5104246) Internal QC (test code = 257) QC acceptable [facility] , [id number] 20:46:00 Test Item Value Reference Range Interpretation Comments test urine, POC (test Negative code = 9362047) Internal QC (test code = 257) QC acceptable [facility] , [id number] 20:46:00 Test Item Value Reference Range Interpretation Comments test urine, POC (test Negative code = 1032081) Internal QC (test code = 257) QC acceptable [facility] , [id number] 20:46:00 Test Item Value Reference Range Interpretation Comments test urine, POC (test Negative code = 6210516) Internal QC (test code = 257) QC acceptable [facility] , [id number] 20:46:00 Test Item Value Reference Range Interpretation Comments test urine, POC (test Negative code = 3976665) Internal QC (test code = 257) QC acceptable [facility] , [id number] 20:46:00 Test Item Value Reference Range Interpretation Comments test urine, POC (test Negative code = 4149585) Internal QC (test code = 257) QC acceptable [facility] , [id number] 20:46:00 Test Item Value Reference Range Interpretation Comments test urine, POC (test Negative code = 0611100) Internal QC (test code = 257) QC acceptable [facility] , etlnp7628-07-09 20:46:00 Test Item Value Reference Range Interpretation Comments test urine, POC (test Negative code = 4663236) Internal QC (test code = 257) QC acceptable [facility] , [id number] 20:46:00 Test Item Value Reference Range Interpretation Comments test urine, POC (test Negative code = 2553219) Internal QC (test code = 257) QC acceptable [address]2021-12-27 17:27:33 Test Item Value Reference Range Interpretation Comments Ventricular rate (test code = 253) Atrial rate (test code = 255) VA interval (test code = 266) QRSD interval [...] of 04-JUN-2021 18:19,-No significant change was found- [address]2021-12-27 17:27:33 Test Item Value Reference Range Interpretation Comments Ventricular rate (test code = 253) Atrial rate (test code = 255) VA interval (test code = 266) QRSD interval [...] of 04-JUN-2021 18:19,-No significant change was found- [address]2021-12-27 17:27:33 Test Item Value Reference Range Interpretation Comments Ventricular rate (test code = 253) Atrial rate (test code = 255) VA interval (test code = 266) QRSD interval [...] of 04-JUN-2021 18:19,-No significant change was found- [address]2021-12-27 17:27:33 Test Item Value Reference Range Interpretation Comments Ventricular rate (test code = 253) Atrial rate (test code = 255) VA interval (test code = 266) QRSD interval [...] of 04-JUN-2021 18:19,-No significant change was found- [address]2021-12-27 17:27:33 Test Item Value Reference Range Interpretation Comments Ventricular rate (test code = 253) Atrial rate (test code = 255) VA interval (test code = 266) QRSD interval [...] of 04-JUN-2021 18:19,-No significant change was found- [address]2021-12-27 17:27:33 Test Item Value Reference Range Interpretation Comments Ventricular rate (test code = 253) Atrial rate (test code = 255) VA interval (test code = 266) QRSD interval [...] of 04-JUN-2021 18:19,-No significant change was found- [address]2021-12-27 17:27:33 Test Item Value Reference Range Interpretation Comments Ventricular rate (test code = 253) Atrial rate (test code = 255) VA interval (test code = 266) QRSD interval [...] of 04-JUN-2021 18:19,-No significant change was found- [address]2021-12-27 17:27:33 Test Item Value Reference Range Interpretation Comments Ventricular rate (test code = 253) Atrial rate (test code = 255) VA interval (test code = 266) QRSD interval [...] of 04-JUN-2021 18:19,-No significant change was found- [address]2021-12-27 17:27:33 Test Item Value Reference Range Interpretation Comments Ventricular rate (test code = 253) Atrial rate (test code = 255) VA interval (test code = 266) QRSD interval [...] of 04-JUN-2021 18:19,-No significant change was found- [address]2021-12-27 17:27:33 Test Item Value Reference Range Interpretation Comments Ventricular rate (test code = 253) Atrial rate (test code = 255) VA interval (test code = 266) QRSD interval [...] of 04-JUN-2021 18:19,-No significant change was found- [address]2021-12-27 17:27:33 Test Item Value Reference Range Interpretation Comments Ventricular rate (test code = 253) Atrial rate (test code = 255) VA interval (test code = 266) QRSD interval [...] of 04-JUN-2021 18:19,-No significant change was found- [place] [address] [id number] 17:27:33 Test Item Value Reference Range Interpretation Comments Ventricular rate (test code = 253) Atrial rate (test code = 255) VA interval (test code = 266) QRSD interval [...] of 04-JUN-2021 18:19,-No significant change was found- [place] [address] [id number] 17:27:33 Test Item Value Reference Range Interpretation Comments Ventricular rate (test code = 253) Atrial rate (test code = 255) VA interval (test code = 266) QRSD interval [...] of 04-JUN-2021 18:19,-No significant change was found[facility] [id number] 11:06:00 Test Item Value Reference Range Interpretation Comments ABO grouping (test code = 883-9) B Rh type (test code = 85142-5) POS Antibody screen (gel) (test code = NEG 890-4) [facility] and [id number] 11:06:00 Test Item Value Reference Range Interpretation Comments ABO grouping (test code = 883-9) B Rh type (test code = 65017-3) POS Antibody screen (gel) (test code = NEG 890-4) [facility] and [id number] 11:06:00 Test Item Value Reference Range Interpretation Comments ABO grouping (test code = 883-9) B Rh type (test code = 06673-6) POS Antibody screen (gel) (test code = NEG 890-4) [facility] and setirr4744-87-27 11:06:00 Test Item Value Reference Range Interpretation Comments ABO grouping (test code = 883-9) B Rh type (test code = 74667-8) POS Antibody screen (gel) (test code = NEG 890-4) [facility] and [id number] 11:06:00 Test Item Value Reference Range Interpretation Comments ABO grouping (test code = 883-9) B Rh type (test code = 16225-2) POS Antibody screen (gel) (test code = NEG 890-4) [facility] and [id number] 11:06:00 Test Item Value Reference Range Interpretation Comments ABO grouping (test code = 883-9) B Rh type (test code = 58993-7) POS Antibody screen (gel) (test code = NEG 890-4) [facility] and wjrshr6635-07-70 11:06:00 Test Item Value Reference Range Interpretation Comments ABO grouping (test code = 883-9) B Rh type (test code = 25966-2) POS Antibody screen (gel) (test code = NEG 890-4) [facility] and [id number] 11:06:00 Test Item Value Reference Range Interpretation Comments ABO grouping (test code = 883-9) B Rh type (test code = 24063-2) POS Antibody screen (gel) (test code = NEG 890-4) [facility] and [id number] 11:06:00 Test Item Value Reference Range Interpretation Comments ABO grouping (test code = 883-9) B Rh type (test code = 48505-9) POS Antibody screen (gel) (test code = NEG 890-4) [facility] and [id number] 11:06:00 Test Item Value Reference Range Interpretation Comments ABO grouping (test code = 883-9) B Rh type (test code = 80671-7) POS Antibody screen (gel) (test code = NEG 890-4) [facility] [id number] 11:06:00 Test Item Value Reference Range Interpretation Comments ABO grouping (test code = 883-9) B Rh type (test code = 76892-1) POS Antibody screen (gel) (test code = NEG 890-4) [facility] and [id number] 11:06:00 Test Item Value Reference Range Interpretation Comments ABO grouping (test code = 883-9) B Rh type (test code = 55622-0) POS Antibody screen (gel) (test code = NEG 890-4) [facility] [id number] 11:06:00 Test Item Value Reference Range Interpretation Comments ABO grouping (test code = 883-9) B Rh type (test code = 06177-0) POS Antibody screen (gel) (test code = NEG 890-4) [facility] [Presence] in Respiratory specimen by EMANUEL with probe byhqmupqk3136-27-77 19:37:44 Test Item Value Reference Range Interpretation Comments SARS-CoV-2 (COVID-19) RNA Not detected Not-Detected [Presence] in Respiratory specimen by EMANUEL with probe detection (test code = 59377-3) 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 InformationSp ecimen code = 94168-2) Source: [facility] ueSpecimen Site: Thigh: in fected [facility] [id number] 20:18:46 Test Item Value Reference Range Interpretation Comments Tissue culture No growth Specimen isolate (test after 3 days. InformationSp ecimen code = 36847-3) Source: T[facility] ueSpecimen Site: Thigh: in fected right thigh wou [facility] [id number] 20:18:46 Test Item Value Reference Range Interpretation Comments Tissue culture No growth Specimen isolate (test after 3 days. InformationSp ecimen code = 84242-0) Source: T[facility] ueSpecimen Site: Thigh: in fected right thigh wou [facility] [id number] 20:18:46 Test Item Value Reference Range Interpretation Comments Tissue culture No growth Specimen isolate (test after 3 days. InformationSp ecimen code = 24958-1) Source: T[facility] ueSpecimen Site: Thigh: in fected right thigh wou [facility] [id number] 20:18:46 Test Item Value Reference Range Interpretation Comments Tissue culture No growth Specimen isolate (test after 3 days. InformationSp ecimen code = 26357-1) Source: Tiss ueSpecimen Site: Thigh: in fected right thigh wou [facility] amcasjj2694-40-74 20:18:46 Test Item Value Reference Range Interpretation Comments Tissue culture No growth Specimen isolate (test after 3 days. InformationSp ecimen code = 80561-8) Source: Tiss ueSpecimen Site: Thigh: in fected right thigh wou [facility] [id number] 20:18:46 Test Item Value Reference Range Interpretation Comments Tissue culture No growth Specimen isolate (test after 3 days. InformationSp ecimen code = 27491-1) Source: Tiss ueSpecimen Site: Thigh: in fected right thigh wou [facility] [id number] 20:18:46 Test Item Value Reference Range Interpretation Comments Tissue culture No growth Specimen isolate (test after 3 days. InformationSp ecimen code = 90743-5) Source: Tiss ueSpecimen Site: Thigh: in fected right thigh wou [facility] [id number] 20:18:46 Test Item Value Reference Range Interpretation Comments Tissue culture No growth Specimen isolate (test after 3 days. InformationSp ecimen code = 82932-7) Source: Tiss ueSpecimen Site: Thigh: in fected right thigh wou nd [facility] [id number] 20:18:46 Test Item Value Reference Range Interpretation Comments Tissue culture No growth Specimen isolate (test after 3 days. InformationSp ecimen code = 31423-2) Source: T[facility] ueSpecimen Site: Thigh: in fected right thigh wou nd [facility] [id number] 20:18:46 Test Item Value Reference Range Interpretation Comments Tissue culture No growth Specimen isolate (test after 3 days. InformationSp ecimen code = 22694-8) Source: Tiss ueSpecimen Site: Thigh: [facility] [id number] 20:24:42 Test Item Value Reference Range Interpretation Comments AFB stain No acid fast Specimen (test code = bacilli (AFB) InformationSpe cimen 676-7) seen. Source: [place] eSpecimen Site: Thigh: in fected wound right [facility] Hospital[facility] [id number] 20:24:42 Test Item Value Reference Range Interpretation Comments AFB stain No acid fast Specimen (test code = bacilli (AFB) InformationSpe cimen 676-7) seen. Source: [place] eSpecimen Site: Thigh: in fected wound right [facility] [id number] 20:24:42 Test Item Value Reference Range Interpretation Comments AFB stain No acid fast Specimen (test code = bacilli (AFB) InformationSpe cimen 676-7) seen. Source: [place] eSpecimen Site: Thigh: in fected wound right [facility] Hospital[facility] [id number] 20:24:42 Test Item Value Reference Range Interpretation Comments AFB stain No acid fast Specimen (test code = bacilli (AFB) InformationSpe cimen 676-7) seen. Source: [place] eSpecimen Site: Thigh: in fected wound right [facility] [id number] 20:24:42 Test Item Value Reference Range Interpretation Comments AFB stain No acid fast Specimen (test code = bacilli (AFB) InformationSpe cimen 676-7) seen. Source: [place] eSpecimen Site: Thigh: in fected wound right [facility] [place] [place] [id number] 20:24:42 Test Item Value Reference Range Interpretation Comments AFB stain No acid fast Specimen (test code = bacilli (AFB) InformationSpe cimen 676-7) seen. Source: [place] eSpecimen Site: Thigh: in fected wound right [facility] [place] [id number] 20:24:42 Test Item Value Reference Range Interpretation Comments AFB stain No acid fast Specimen (test code = bacilli (AFB) InformationSpe cimen 676-7) seen. Source: [place] eSpecimen Site: Thigh: in fected wound right [facility] [place] [place] [id number] 20:24:42 Test Item Value Reference Range Interpretation Comments AFB stain No acid fast Specimen (test code = bacilli (AFB) InformationSpe cimen 676-7) seen. Source: [place] eSpecimen Site: Thigh: in fected wound right [facility] [place] [place] [id number] 20:24:42 Test Item Value Reference Range Interpretation Comments AFB stain No acid fast Specimen (test code = bacilli (AFB) InformationSpe cimen 676-7) seen. Source: Drain eSpecimen Site: Thigh: in fected wound right [facility] [place] [place] [id number] 20:24:42 Test Item Value Reference Range Interpretation Comments AFB stain No acid fast Specimen (test code = bacilli (AFB) InformationSpe cimen 676-7) seen. Source: [place] eSpecimen Site: Thigh: in fected wound right [facility] [place] [place] [id number] 20:24:42 Test Item Value Reference Range Interpretation Comments AFB stain No acid fast Specimen (test code = bacilli (AFB) InformationSpe cimen 676-7) seen. Source: [place] eSpecimen Site: Thigh: [facility] fected wound right [facility] [id number] 09:49:57 Test Item Value Reference Range Interpretation Comments Urine culture No growth Specimen isolate (test after 24 InformationSpe cimen code = 05696-1) hours Source: Urin eSpecimen Site: [facility]2021-12-20 09:49:57 Test Item Value Reference Range Interpretation Comments Urine culture No growth Specimen isolate (test after 24 InformationSpe cimen code = 28409-1) hours Source: [facility] eSpecimen Site: [facility]2021-12-20 09:49:57 Test Item Value Reference Range Interpretation Comments Urine culture No growth Specimen isolate (test after 24 InformationSpe cimen code = 05661-1) [facility]2021-12-20 09:49:57 Test Item Value Reference Range Interpretation Comments Urine culture No growth Specimen isolate (test after 24 InformationSpe cimen code = 62353-6) hours Source: [facility] Site: [facility]2021-12-20 09:49:57 Test Item Value Reference Range Interpretation Comments Urine culture No growth Specimen isolate (test after 24 InformationSpe cimen code = 15622-0) [facility]2021-12-20 09:49:57 Test Item Value Reference Range Interpretation Comments Urine culture No growth Specimen isolate (test after 24 InformationSpe cimen code = 92678-3) [facility]2021-12-20 09:49:57 Test Item Value Reference Range Interpretation Comments Urine culture No growth Specimen isolate (test after 24 InformationSpe cimen code = 54183-8) hours Source: in eSpecimen Site: [facility]2021-12-20 09:49:57 Test Item Value Reference Range Interpretation Comments Urine culture No growth Specimen isolate (test after 24 InformationSpe cimen code = 56738-4) [facility]2021-12-20 09:49:57 Test Item Value Reference Range Interpretation Comments Urine culture No growth Specimen isolate (test after 24 InformationSpe cimen code = 80186-7) hours Source: [facility] eSpecime Site: [facility]2021-12-20 09:49:57 Test Item Value Reference Range Interpretation Comments Urine culture No growth Specimen isolate (test after 24 InformationSpe cimen code = 61171-6) hours Source: [facility]Specimen [facility] kijwlxv9064-24-28 09:49:57 Test Item Value Reference Range Interpretation Comments Urine culture No growth Specimen isolate (test after 24 InformationSpe cimen code = 65870-9) hours Source: [facility] eSpecimen [facility]: [facility] and Rh zmlgfsnuvmot7721-58-25 12:52:00 Test Item Value Reference Range Interpretation Comments ABO grouping (test code = 883-9) B Rh type (test code = 59287-2) [facility] Rh ygjukqtxopfw4784-40-71 12:52:00 Test Item Value Reference Range Interpretation Comments ABO grouping (test code = 883-9) B Rh type (test code = 02795-3) POS [facility] and Rh lsymksdoiowx0300-79-30 12:52:00 Test Item Value Reference Range Interpretation Comments ABO grouping (test code = 883-9) B Rh type (test code = 04581-9) POS [facility] and Rh yzmvvcbyeqsq4239-52-03 12:52:00 Test Item Value Reference Range Interpretation Comments ABO grouping (test code = 883-9) B Rh type (test code = 85888-8) [facility] Rh yakiielnsxwe8588-44-92 12:52:00 Test Item Value Reference Range Interpretation Comments ABO grouping (test code = 883-9) B Rh type (test code = 46272-4) [facility] Rh uuarchdjkzpi2505-11-11 12:52:00 Test Item Value Reference Range Interpretation Comments ABO grouping (test code = 883-9) B Rh type (test code = 57667-9) POS [facility] rpzdsuzsgnmt7507-50-95 12:52:00 Test Item Value Reference Range Interpretation Comments ABO grouping (test code = 883-9) B Rh type (test code = 53533-9) [facility] brdhbjjvbwsu6927-02-74 12:52:00 Test Item Value Reference Range Interpretation Comments ABO grouping (test code = 883-9) B Rh type (test code = 43646-6) POS [facility] wzvkecvbjlmh0854-14-42 12:52:00 Test Item Value Reference Range Interpretation Comments ABO grouping (test code = 883-9) B Rh type (test code = 93946-6) POS [facility] nkwhejsgjdik3009-81-86 12:52:00 Test Item Value Reference Range Interpretation Comments ABO grouping (test code = 883-9) B Rh type (test code = 46063-0) POS [facility] and Rh ixoxvjatiypk0779-18-71 12:52:00 Test Item Value Reference Range Interpretation Comments ABO grouping (test code = 883-9) B Rh type (test code = 76582-2) [facility] [Presence] in Respiratory specimen by EMANUEL with probe qkwceeulb1558-03-82 03:04:32 Test Item Value Reference Range Interpretation Comments SARS-CoV-2 (COVID-19) RNA Not detected Not-Detected [Presence] in Respiratory specimen by EMANUEL with probe detection (test code = 91313-6) 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 (test code = 49414-0) Whether the patient has symptoms related to condition of interest (test code = 47736-8) Patient was hospitalized because of this condition (test code = 64303-3) Whether the patient was admitted to intensive care unit (ICU) for condition of interest (test code = 20734-2) Whether patient resides in a congregate care setting (test code = 00663-7) [facility] [id number] 22:22:00 Test Item Value Reference Range Interpretation Comments Product name (test code Red Blood Cells -1, = 25) Leukored Unit number (test code = [id number] 0109056) Product code (test code F0875T69 = 3092) Dispense status (test Transfused code = 24) Blood expiration date (test code = 302) Blood type code (test code = 308) Blood type (test code = B POSITIVE 1314) Compatibility (test code Compatible = 6400) [facility], 1 Odani5103-39-21 22:22:00 Test Item Value Reference Range Interpretation Comments Product name (test code Red Blood Cells -1, = 25) Leukored Unit number (test code = [id number] 9293204) Product code (test code K2038Z24 = 3092) Dispense status (test Transfused code = 24) Blood expiration date (test code = 302) Blood type code (test code = 308) Blood type (test code = B POSITIVE 1314) Compatibility (test code Compatible = 6400) [facility], 1 Tyclz8584-05-11 22:22:00 Test Item Value Reference Range Interpretation Comments Product name (test code Red Blood Cells -1, = 25) Leukored Unit number (test code = [id number] 5727309) Product code (test code L0832C15 = 3092) Dispense status (test Transfused code = 24) Blood expiration date (test code = 302) Blood type code (test code = 308) Blood type (test code = B POSITIVE 1314) Compatibility (test code Compatible = 6400) [facility] Ftnut8947-03-54 22:22:00 Test Item Value Reference Range Interpretation Comments Product name (test code Red Blood Cells -1, = 25) Leukored Unit number (test code = [id number] 7187069) Product code (test code A5817K12 = 3092) Dispense status (test Transfused code = 24) Blood expiration date (test code = 302) Blood type code (test code = 308) Blood type (test code = B POSITIVE 1314) Compatibility (test code Compatible = 6400) [facility] Gqepx4040-39-84 22:22:00 Test Item Value Reference Range Interpretation Comments Product name (test code Red Blood Cells -1, = 25) Leukored Unit number (test code = [id number] 1153666) Product code (test code X5528O60 = 3092) Dispense status (test Transfused code = 24) Blood expiration date (test code = 302) Blood type code (test code = 308) Blood type (test code = B POSITIVE 1314) Compatibility (test code Compatible = 6400) [facility], 1 Cekga4687-64-15 22:22:00 Test Item Value Reference Range Interpretation Comments Product name (test code Red Blood Cells -1, = 25) Leukored Unit number (test code = [id number] 4718268) Product code (test code T4828D85 = 3092) Dispense status (test Transfused code = 24) Blood expiration date (test code = 302) Blood type code (test code = 308) Blood type (test code = B POSITIVE 1314) Compatibility (test code Compatible = 6400) [facility], 1 Kmhmr9186-49-17 22:22:00 Test Item Value Reference Range Interpretation Comments Product name (test code Red Blood Cells -1, = 25) Leukored Unit number (test code = [id number] 1832795) Product code (test code Q8175Z06 = 3092) Dispense status (test Transfused code = 24) Blood expiration date (test code = 302) Blood type code (test code = 308) Blood type (test code = B POSITIVE 1314) Compatibility (test code Compatible = 6400) [facility] Mmbzd3842-68-44 22:22:00 Test Item Value Reference Range Interpretation Comments Product name (test code Red Blood Cells -1, = 25) Leukored Unit number (test code = [id number] 2129770) Product code (test code M6792C45 = 3092) Dispense status (test Transfused code = 24) Blood expiration date (test code = 302) Blood type code (test code = 308) Blood type (test code = B POSITIVE 1314) Compatibility (test code Compatible = 6400) [facility] Xrdjr9091-92-68 22:22:00 Test Item Value Reference Range Interpretation Comments Product name (test code Red Blood Cells -1, = 25) Leukored Unit number (test code = [id number] 3122823) Product code (test code U5097Q11 = 3092) Dispense status (test Transfused code = 24) Blood expiration date (test code = 302) Blood type code (test code = 308) Blood type (test code = B POSITIVE 1314) Compatibility (test code Compatible = 6400) [facility], 1 Kpfyt3639-35-62 22:22:00 Test Item Value Reference Range Interpretation Comments Product name (test code Red Blood Cells -1, = 25) Leukored Unit number (test code = [id number] 6852811) Product code (test code D4266Z02 = 3092) Dispense status (test Transfused code = 24) Blood expiration date (test code = 302) Blood type code (test code = 308) Blood type (test code = B POSITIVE 1314) Compatibility (test code Compatible = 6400) [facility] pathology gamxyzg2074-83-64 20:10:46 Test Item Value Reference Range Interpretation Comments Case number (test code = [id number]) Surgical pathology See link below for report (test code = PDF Lab Report 2255) Result status (test code This is Final Report = 1103749) for [address] pathology voaydym9125-37-46 20:10:46 Test Item Value Reference Range Interpretation Comments Case number (test code = [id number]) Surgical pathology See link below for report (test code = PDF Lab Report 2255) Result status (test code This is Final Report = 8379081) for [address] pathology xudzwmd1745-02-98 20:10:46 Test Item Value Reference Range Interpretation Comments Case number (test code = [id number]) Surgical pathology See link below for report (test code = PDF Lab Report 2255) Result status (test code This is Final Report = 6148500) for [address] pathology newjzpn1376-91-18 20:10:46 Test Item Value Reference Range Interpretation Comments Case number (test code = [id number]) Surgical pathology See link below for report (test code = PDF Lab Report 2255) Result status (test code This is Final Report = 1674189) for [address] pathology hwhbtnr3563-25-58 20:10:46 Test Item Value Reference Range Interpretation Comments Case number (test code = [id number]) Surgical pathology See link below for report (test code = PDF Lab Report 2255) Result status (test code This is Final Report = 2524915) for [address] pathology xfrluyo4330-72-76 20:10:46 Test Item Value Reference Range Interpretation Comments Case number (test code = [id number]) Surgical pathology See link below for report (test code = PDF Lab Report 2255) Result status (test code This is Final Report = 6433192) for [address] pathology bcudjfa3326-10-07 20:10:46 Test Item Value Reference Range Interpretation Comments Case number (test code = [id number]) Surgical pathology See link below for report (test code = PDF Lab Report 2255) Result status (test code This is Final Report = 3962108) for [address] pathology bdsvtoj4276-75-08 20:10:46 Test Item Value Reference Range Interpretation Comments Case number (test code = [id number]) Surgical pathology See link below for report (test code = PDF Lab Report 2255) Result status (test code This is Final Report = 6056868) for [address] pathology ofldgti4600-96-99 20:10:46 Test Item Value Reference Range Interpretation Comments Case number (test code = [id number]) Surgical pathology See link below for report (test code = PDF Lab Report 2255) Result status (test code This is Final Report = [id number]) for [address] pathology xmfwfsr4294-09-33 20:10:46 Test Item Value Reference Range Interpretation Comments Case number (test code = [id number]) Surgical pathology See link below for report (test code = PDF Lab Report 2255) Result status (test code This is Final Report = 0729152) [facility] [address] pheresis, 1 Xxffy5240-39-19 15:35:00 Test Item Value Reference Range Interpretation Comments Product name (test code Bogdan Fraire LR, Path = 25) Red cont3 Unit number (test code = [id number] 6755405) Product code (test code I5406D15 = 3092) Dispense status (test Transfused code = 24) Blood expiration date (test code = 302) Blood type code (test code = 308) Blood type (test code = O POSITIVE 1314) Compatibility (test code Not required = 6400) [facility], 1 Vfaru0943-05-27 15:35:00 Test Item Value Reference Range Interpretation Comments Product name (test code Platele tAph LR, Path = 25) Red cont3 Unit number (test code = [id number] 1148944) Product code (test code R9607K01 = 3092) Dispense status (test Transfused code = 24) Blood expiration date (test code = 302) Blood type code (test code = 308) Blood type (test code = O POSITIVE 1314) Compatibility (test code Not required = 6400) [facility] 1 Rcmoa8212-39-88 15:35:00 Test Item Value Reference Range Interpretation Comments Product name (test code Platerick tAph LR, Path = 25) Red cont3 Unit number (test code = [id number] 0257257) Product code (test code D0098V26 = 3092) Dispense status (test Transfused code = 24) Blood expiration date (test code = 302) Blood type code (test code = 308) Blood type (test code = O POSITIVE 1314) Compatibility (test code Not required = 6400) [facility] pheres[facility], 1 Yhrym0857-06-03 15:35:00 Test Item Value Reference Range Interpretation Comments Product name (test code Platerick tAph LR, Path = 25) Red cont3 Unit number (test code = [id number] 2603788) Product code (test code H1077G69 = 3092) Dispense status (test Transfused code = 24) Blood expiration date (test code = 302) Blood type code (test code = 308) Blood type (test code = O POSITIVE 1314) Compatibility (test code Not required = 6400) [facility], 1 Mkuxy0173-18-09 15:35:00 Test Item Value Reference Range Interpretation Comments Product name (test code Platerick tAph LR, Path = 25) Red cont3 Unit number (test code = [id number] 8277741) Product code (test code T6223B32 = 3092) Dispense status (test Transfused code = 24) Blood expiration date (test code = 302) Blood type code (test code = 308) Blood type (test code = O POSITIVE 1314) Compatibility (test code Not required = 6400) [facility], 1 Stkeq4774-20-40 15:35:00 Test Item Value Reference Range Interpretation Comments Product name (test code Platele tAph LR, Path = 25) Red cont3 Unit number (test code = [id number] 3048027) Product code (test code S2830W36 = 3092) Dispense status (test Transfused code = 24) Blood expiration date (test code = 302) Blood type code (test code = 308) Blood type (test code = O POSITIVE 1314) Compatibility (test code Not required = 6400) [facility], 1 Qkdmf5337-08-43 15:35:00 Test Item Value Reference Range Interpretation Comments Product name (test code Platerick tAph LR, Path = 25) Red cont3 Unit number (test code = [id number] 1209758) Product code (test code F2558H32 = 3092) Dispense status (test Transfused code = 24) Blood expiration date (test code = 302) Blood type code (test code = 308) Blood type (test code = O POSITIVE 1314) Compatibility (test code Not required = 6400) [facility], 1 Ltdtn4669-59-91 15:35:00 Test Item Value Reference Range Interpretation Comments Product name (test code Platerick tAph LR, Path = 25) Red cont3 Unit number (test code = [id number] 3653541) Product code (test code F2904C81 = 3092) Dispense status (test Transfused code = 24) Blood expiration date (test code = 302) Blood type code (test code = 308) Blood type (test code = O POSITIVE 1314) Compatibility (test code Not required = 6400) [facility], 1 Uymqx5697-48-19 15:35:00 Test Item Value Reference Range Interpretation Comments Product name (test code Platele tAph LR, Path = 25) Red cont3 Unit number (test code = [id number] 3977316) Product code (test code K0986K85 = 3092) Dispense status (test Transfused code = 24) Blood expiration date (test code = 302) Blood type code (test code = 308) Blood type (test code = O POSITIVE 1314) Compatibility (test code Not required = 6400) [facility], 1 Hzfay5641-62-59 15:35:00 Test Item Value Reference Range Interpretation Comments Product name (test code Bogdan GARDINER, Path = 25) Red cont3 Unit number (test code = [id number] 4975709) Product code (test code A6917Y05 = 3092) Dispense status (test Transfused code = 24) Blood expiration date (test code = 302) Blood type code (test code = 308) Blood type (test code = O POSITIVE 1314) Compatibility (test code Not required = 6400) [facility] plmi7518-25-13 12:13:24 Test Item Value Reference Range Interpretation Comments Activated clotting time See_Comment H Oper ator Name: (test code = 5298) Bryn Diase ID: [id number] [Automated mess age] The system [employer] generated this result transmitted ref erence range: 96 - 152 sec. The reference r leo was not used to interpret this result as normal/abnor mal. Lab Interpretation (test Abnormal code = 17447-1) [facility] psqy4014-75-18 12:13:24 Test Item Value Reference Range Interpretation Comments Activated clotting time See_Comment H Oper ator Name: (test code = 5298) Bryn Diase ID: [id number] [Automated mess age] The system [employer] generated this result transmitted ref erence range: 96 - 152 sec. The reference r leo was not used to interpret this result as normal/abnor mal. Lab Interpretation (test Abnormal code = 83305-2) [facility] bmxu4842-18-21 12:13:24 Test Item Value Reference Range Interpretation Comments Activated clotting time See_Comment H Oper ator Name: (test code = 5298) Bryn Diase ID: [id number] [Automated mess age] The system [employer] generated this result transmitted ref erence range: 96 - 152 sec. The reference r leo was not used to interpret this result as normal/abnor mal. Lab Interpretation (test Abnormal code = 67405-2) [facility] nmcz6306-82-37 12:13:24 Test Item Value Reference Range Interpretation Comments Activated clotting time See_Comment H Oper ator Name: (test code = 5298) Bryn R eneaDevice ID: [id number] [Automated mess age] The system Kaiam h generated this result transmitted ref erence range: 96 - 152 sec. The reference r leo was not used to interpret this result as normal/abnor mal. Lab Interpretation (test Abnormal code = 29872-4) [facility] eykz3765-34-93 12:13:24 Test Item Value Reference Range Interpretation Comments Activated clotting time See_Comment H Oper ator Name: (test code = 5298) Bryn Denny eneaDevice ID: [id number] [Automated mess age] The system Kaiam h generated this result transmitted ref erence range: 96 - 152 sec. The reference r leo was not used to interpret this result as normal/abnor mal. Lab Interpretation (test Abnormal code = 67412-9) [facility] uaov8567-49-00 12:13:24 Test Item Value Reference Range Interpretation Comments Activated clotting time See_Comment H Oper ator Name: (test code = 5298) Bryn R eneaDevice ID: [id number] [Automated mess age] The system Kaiam h generated this result transmitted ref erence range: 96 - 152 sec. The reference r leo was not used to interpret this result as normal/abnor mal. Lab Interpretation (test Abnormal code = 44197-2) [facility] qqkh8061-21-18 12:13:24 Test Item Value Reference Range Interpretation Comments Activated clotting time See_Comment H Oper ator Name: (test code = 5298) Bryn R eneaDevice ID: [id number] [Automated mess age] The system Kaiam h generated this result transmitted ref erence range: 96 - 152 sec. The reference r leo was not used to interpret this result as normal/abnor mal. Lab Interpretation (test Abnormal code = 21571-2) [facility] unis7690-98-92 12:13:24 Test Item Value Reference Range Interpretation Comments Activated clotting time See_Comment H Oper ator Name: (test code = 5298) Bryn R eneaDevice ID: [id number] [Automated mess age] The system Kaiam h generated this result transmitted ref erence range: 96 - 152 sec. The reference r leo was not used to interpret this result as normal/abnor mal. Lab Interpretation (test Abnormal code = 13513-5) [facility] nnii9079-57-46 12:13:24 Test Item Value Reference Range Interpretation Comments Activated clotting time See_Comment H Oper ator Name: (test code = 5298) Bryn Denny norbertoeaDevice ID: [id number] [Automated mess age] The system [employer] generated this result transmitted ref erence range: 96 - 152 sec. The reference r leo was not used to interpret this result as normal/abnor mal. Lab Interpretation (test Abnormal code = 84123-9) [facility] pcci0026-56-70 12:13:24 Test Item Value Reference Range Interpretation Comments Activated clotting time See_Comment H Oper ator Name: (test code = 5298) Bryn Denny eneaDevice ID: [id number] [Automated mess age] The system [employer] generated this result transmitted ref erence range: 96 - 152 sec. The reference r leo was not used to interpret this result as normal/abnor mal. Lab Interpretation (test Abnormal code = 47720-4) [facility] crsle8437-06-91 14:37:48 Test Item Value Reference Range Interpretation Comments POC sodium (test code = 138 mmol/L 947-494 5729-0) POC potassium (test 5.5 mmol/L 3.5-5 H code = 6298-4) POC glucose (test code 295 mg/dL 65-99 H = 2339-0) POC creatinine (test 5.3 mg/dl 0.5-0.9 H Operato r Name: Pugne code = 91495-4) Lisavice ID: [id number] POC hemoglobin (test 18.4 g/dL 12-16 H code = 718-7) POC hematocrit (test 54 % 37-47 H code = 4544-3) Lab Interpretation Abnormal (test code = 10123-0) [facility] yticg2966-23-03 14:37:48 Test Item Value Reference Range Interpretation Comments POC sodium (test code = 138 mmol/L 817-994 0448-0) POC potassium (test 5.5 mmol/L 3.5-5 H code = 6298-4) POC glucose (test code 295 mg/dL 65-99 H = 2339-0) POC creatinine (test 5.3 mg/dl 0.5-0.9 H Operato r Name: Carminagne code = 13131-2) AiljoshDevice ID: [id number] POC hemoglobin (test 18.4 g/dL 12-16 H code = 718-7) POC hematocrit (test 54 % 37-47 H code = 4544-3) Lab Interpretation Abnormal (test code = 37156-8) [facility]2021-11-29 14:37:48 Test Item Value Reference Range Interpretation Comments POC sodium (test code = 138 mmol/L 362-665 6813-0) POC potassium (test 5.5 mmol/L 3.5-5 H code = 6298-4) POC glucose (test code 295 mg/dL 65-99 H = 2339-0) POC creatinine (test 5.3 mg/dl 0.5-0.9 H Operato r Name: Johannae code = 07010-0) AiljoshDevice ID: [id number] POC hemoglobin (test 18.4 g/dL 12-16 H code = 718-7) POC hematocrit (test 54 % 37-47 H code = 4544-3) Lab Interpretation Abnormal (test code = 85589-1) [facility]2021-11-29 14:37:48 Test Item Value Reference Range Interpretation Comments POC sodium (test code = 138 mmol/L 980-949 2495-0) POC potassium (test 5.5 mmol/L 3.5-5 H code = 6298-4) POC glucose (test code 295 mg/dL 65-99 H = 2339-0) POC creatinine (test 5.3 mg/dl 0.5-0.9 H Operato r Name: Carminagne code = 54815-2) AileenDevice ID: [id number] POC hemoglobin (test 18.4 g/dL 12-16 H code = 718-7) POC hematocrit (test 54 % 37-47 H code = 4544-3) Lab Interpretation Abnormal (test code = 22958-5) [facility]2021-11-29 14:37:48 Test Item Value Reference Range Interpretation Comments POC sodium (test code = 138 mmol/L 497-159 0673-0) POC potassium (test 5.5 mmol/L 3.5-5 H code = 6298-4) POC glucose (test code 295 mg/dL 65-99 H = 2339-0) POC creatinine (test 5.3 mg/dl 0.5-0.9 H Operato r Name: Pugne code = 22922-4) AileenDevice ID: [id number] POC hemoglobin (test 18.4 g/dL 12-16 H code = 718-7) POC hematocrit (test 54 % 37-47 H code = 4544-3) Lab Interpretation Abnormal (test code = 30111-3) [facility]2021-11-29 14:37:48 Test Item Value Reference Range Interpretation Comments POC sodium (test code = 138 mmol/L 160-593 7302-0) POC potassium (test 5.5 mmol/L 3.5-5.0 H code = 6298-4) POC glucose (test code 295 mg/dL 65-99 H = 2339-0) POC creatinine (test 5.3 mg/dl 0.5-0.9 H Operato r Name: Pue code = 56445-5) AileenDevice ID: [id number] POC hemoglobin (test 18.4 g/dL 12.0-16.0 H code = 718-7) POC hematocrit (test 54 % 37-47 H code = 4544-3) Lab Interpretation Abnormal (test code = 83125-6) [facility]2021-11-29 14:37:48 Test Item Value Reference Range Interpretation Comments POC sodium (test code = 138 mmol/L 579-039 8284-0) POC potassium (test 5.5 mmol/L 3.5-5.0 H code = 6298-4) POC glucose (test code 295 mg/dL 65-99 H = 2339-0) POC creatinine (test 5.3 mg/dl 0.5-0.9 H Operato r Name: Pugne code = 57111-5) AileenDevice ID: [id number] POC hemoglobin (test 18.4 g/dL 12.0-16.0 H code = 718-7) POC hematocrit (test 54 % 37-47 H code = 4544-3) Lab Interpretation Abnormal (test code = 32982-8) [facility]2021-11-29 14:37:48 Test Item Value Reference Range Interpretation Comments POC sodium (test code = 138 mmol/L 317-291 6071-0) POC potassium (test 5.5 mmol/L 3.5-5 H code = 6298-4) POC glucose (test code 295 mg/dL 65-99 H = 2339-0) POC creatinine (test 5.3 mg/dl 0.5-0.9 H Operato r Name: Pugne code = 71541-8) AileenDevice ID: [id number] POC hemoglobin (test 18.4 g/dL 12-16 H code = 718-7) POC hematocrit (test 54 % 37-47 H code = 4544-3) Lab Interpretation Abnormal (test code = 03875-9) [place] 987691-11-29 14:37:48 Test Item Value Reference Range Interpretation Comments POC sodium (test code = 138 mmol/L 796-043 3163-0) POC potassium (test 5.5 mmol/L 3.5-5 H code = 6298-4) POC glucose (test code 295 mg/dL 65-99 H = 2339-0) POC creatinine (test 5.3 mg/dl 0.5-0.9 H Operato r Name: Pugne code = 62833-5) AileenDevice ID: [id number] POC hemoglobin (test 18.4 g/dL 12-16 H code = 718-7) POC hematocrit (test 54 % 37-47 H code = 4544-3) Lab Interpretation Abnormal (test code = 30570-7) [facility]2021-11-29 14:37:48 Test Item Value Reference Range Interpretation Comments POC sodium (test code = 138 mmol/L 592-726 9854-0) POC potassium (test 5.5 mmol/L 3.5-5 H code = 6298-4) POC glucose (test code 295 mg/dL 65-99 H = 2339-0) POC creatinine (test 5.3 mg/dl 0.5-0.9 H Operato r Name: Pugne code = 15890-7) AiljoshDevice ID: [id number] POC hemoglobin (test 18.4 g/dL 12-16 H code = 718-7) POC hematocrit (test 54 % 37-47 H code = 4544-3) Lab Interpretation Abnormal (test code = 73315-7) [facility] [Presence] in Respiratory specimen by EMANUEL with probe mjaeaviha3601-47-84 07:53:49 Test Item Value Reference Range Interpretation Comments SARS-CoV-2 (COVID-19) RNA Not detected Not-Detected [Presence] in Respiratory specimen by EMANUEL with probe detection (test code = 05703-7) 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 (test code = 64864-2) Whether the patient has symptoms related to condition of interest (test code = 61966-5) Patient was hospitalized because of this condition (test code = 51297-5) Whether the patient was admitted to intensive care unit (ICU) for condition of interest (test code = 07349-9) Whether patient resides in a congregate care setting (test code = 72603-3) [facility] [id number] 08:17:00 Test Item Value Reference Range Interpretation Comments Glucose Lvl (test code = Glucose Lvl) 94 70-99 [facility]2021-08-11 08:17:00 Test Item Value Reference Range Interpretation Comments BUN (test code = BUN) 27 7-22 [facility]2021-08-11 08:17:00 Test Item Value Reference Range Interpretation Comments Creatinine Lvl (test code = Creatinine 4.95 0.50-1.40 Lvl) [facility]2021-08-11 08:17:00 Test Item Value Reference Range Interpretation Comments Sodium Lvl (test code = Sodium Lvl) 136 135-145 [facility]2021-08-11 08:17:00 Test Item Value Reference Range Interpretation Comments Potassium Lvl (test code = Potassium 3.9 3.5-5.1 Lvl) [facility]2021-08-11 08:17:00 Test Item Value Reference Range Interpretation Comments Chloride Lvl (test code = Chloride Lvl) 103 95-109 [place] 117061-08-11 08:17:00 Test Item Value Reference Range Interpretation Comments CO2 (test code = CO2) 30 24-32 [place] 117061-08-11 08:17:00 Test Item Value Reference Range Interpretation Comments AGAP (test code = AGAP) 6.9 10.0-20.0 [place] 117061-08-11 08:17:00 Test Item Value Reference Range Interpretation Comments Calcium Lvl (test code = Calcium Lvl) 8.5 8.5-10.5 [place] 117061-08-11 08:17:00 Test Item Value Reference Range Interpretation Comments eGFR (test code = eGFR) 10 [place] 117061-08-11 08:17:00 Test Item Value Reference Range Interpretation Comments Phosphorus (test code = Phosphorus) 3.0 2.5-4.5 [place] 117061-08-11 08:17:00 Test Item Value Reference Range Interpretation Comments Magnesium Lvl (test code = Magnesium 2.4 1.8-2.4 Lvl) [place] 314791-08-11 08:17:00 Test Item Value Reference Range Interpretation Comments WBC (test code = WBC) 2.3 3.7-10.4 [place] 314791-08-11 08:17:00 Test Item Value Reference Range Interpretation Comments RBC (test code = RBC) 2.65 4.20-5.40 [place] 314791-08-11 08:17:00 Test Item Value Reference Range Interpretation Comments Hgb (test code = Hgb) 7.9 12.0-16.0 [place] 314791-08-11 08:17:00 Test Item Value Reference Range Interpretation Comments Hct (test code = Hct) 24.0 36.0-48.0 [place] 314791-08-11 08:17:00 Test Item Value Reference Range Interpretation Comments MCV (test code = MCV) 90.6 80.0-98.0 [place] [address]-08-11 08:17:00 Test Item Value Reference Range Interpretation Comments MCH (test code = MCH) 29.7 pg 27.0-31.0 [place] 314791-08-11 08:17:00 Test Item Value Reference Range Interpretation Comments MCHC (test code = MCHC) 32.7 32.0-36.0 [place] [address]-08-11 08:17:00 Test Item Value Reference Range Interpretation Comments RDW (test code = RDW) 19.1 11.5-14.5 [place] 314791-08-11 08:17:00 Test Item Value Reference Range Interpretation Comments Platelet (test code = Platelet) 71 133-450 [facility]JdtptreVVAJIZMUTJ3904-68-75 08:17:00 Test Item Value Reference Range Interpretation Comments MPV (test code = MPV) 9.9 7.4-10.4 [place] 314791-08-11 08:17:00 Test Item Value Reference Range Interpretation Comments Segs (test code = Segs) 56.1 45.0-75.0 [place] 314791-08-11 08:17:00 Test Item Value Reference Range Interpretation Comments Lymphocytes (test code = Lymphocytes) 28.9 20.0-40.0 [facility] HospitalVwozxlbHMTEFYCFRH7827-20-35 08:17:00 Test Item Value Reference Range Interpretation Comments Monocytes (test code = Monocytes) 8.1 2.0-12.0 [facility] HospitalJcuxpldJOEZARGIRR3486-45-04 08:17:00 Test Item Value Reference Range Interpretation Comments Eosinophils (test code = 5.9 See_Comment [A utomated message] The Eosinophils) system which ge nerated this result tra nsmitted reference range : <=4.0. The reference r leo was not used to int erpret this result as normal/abnormal . [facility] HospitalVjdpinfGYNCIETMHL5896-74-03 08:17:00 Test Item Value Reference Range Interpretation Comments Basophils (test code = 1.0 See_Comment [Aut omated message] The Basophils) system which ge nerated this result tra nsmitted reference range : <=1.0. The reference r leo was not used to int erpret this result as normal/abnormal . [facility] HospitalFyfomjkIBAMHECZIN2497-19-90 08:17:00 Test Item Value Reference Range Interpretation Comments Neutrophils # (test code = Neutrophils 1.3 1.5-8.1 #) [facility] HospitalUivobgcHLGQMICNOC1421-93-50 08:17:00 Test Item Value Reference Range Interpretation Comments Lymphocytes # (test code = Lymphocytes 0.7 1.0-5.5 #) [place] 314791-08-11 08:17:00 Test Item Value Reference Range Interpretation Comments Monocytes # (test code 0.2 See_Comment [Aut omated message] The = Monocytes #) system which generated this result tra nsmitted reference range : <=0.8. The reference r leo was not used to int erpret this result as normal/abnormal . [place] 314791-08-11 08:17:00 Test Item Value Reference Range Interpretation Comments Eosinophils # (test code 0.1 See_Comment [A utomated message] The = Eosinophils #) system whic h generated this result tra nsmitted reference range : <=0.5. The reference r leo was not used to int erpret this result as normal/abnormal . [facility]2021-08-10 09:30:00 Test Item Value Reference Range Interpretation Comments Glucose Lvl (test code = Glucose Lvl) 61 70-99 [place] 117061-08-10 09:30:00 Test Item Value Reference Range Interpretation Comments BUN (test code = BUN) 13 7-22 [place] 117061-08-10 09:30:00 Test Item Value Reference Range Interpretation Comments Creatinine Lvl (test code = Creatinine 3.71 0.50-1.40 Lvl) [place] 117061-08-10 09:30:00 Test Item Value Reference Range Interpretation Comments Sodium Lvl (test code = Sodium Lvl) 136 135-145 [place] 117061-08-10 09:30:00 Test Item Value Reference Range Interpretation Comments Potassium Lvl (test code = Potassium 4.3 3.5-5.1 Lvl) [place] [address]-08-10 09:30:00 Test Item Value Reference Range Interpretation Comments Chloride Lvl (test code = Chloride Lvl) 103 95-109 [place] 117061-08-10 09:30:00 Test Item Value Reference Range Interpretation Comments CO2 (test code = CO2) 27 24-32 [place] 117061-08-10 09:30:00 Test Item Value Reference Range Interpretation Comments Calcium Lvl (test code = Calcium Lvl) 7.9 8.5-10.5 [place] 117061-08-10 09:30:00 Test Item Value Reference Range Interpretation Comments AGAP (test code = AGAP) 10.3 10.0-20.0 [place] 117061-08-10 09:30:00 Test Item Value Reference Range Interpretation Comments eGFR (test code = eGFR) 15 [facility]2021-08-10 09:30:00 Test Item Value Reference Range Interpretation Comments Magnesium Lvl (test code = Magnesium 2.3 1.8-2.4 Lvl) [place] 117061-08-10 09:30:00 Test Item Value Reference Range Interpretation Comments Phosphorus (test code = Phosphorus) 3.1 2.5-4.5 [place] 314791-08-10 09:30:00 Test Item Value Reference Range Interpretation Comments Segs (test code = Segs) 61.5 45.0-75.0 [place] 314791-08-10 09:30:00 Test Item Value Reference Range Interpretation Comments Lymphocytes (test code = Lymphocytes) 24.6 20.0-40.0 [place] 314791-08-10 09:30:00 Test Item Value Reference Range Interpretation Comments Monocytes (test code = Monocytes) 7.4 2.0-12.0 [place] 314791-08-10 09:30:00 Test Item Value Reference Range Interpretation Comments Eosinophils (test code = 5.5 See_Comment [A utomated message] The Eosinophils) system which ge nerated this result tra nsmitted reference range : <=4.0. The reference r leo was not used to int erpret this result as normal/abnormal . [place] 314791-08-10 09:30:00 Test Item Value Reference Range Interpretation Comments Basophils (test code = 1.0 See_Comment [Aut omated message] The Basophils) system which ge nerated this result tra nsmitted reference range : <=1.0. The reference r leo was not used to int erpret this result as normal/abnormal . [place] 314791-08-10 09:30:00 Test Item Value Reference Range Interpretation Comments Neutrophils # (test code = Neutrophils 1.6 1.5-8.1 #) [place] 314791-08-10 09:30:00 Test Item Value Reference Range Interpretation Comments Lymphocytes # (test code = Lymphocytes 0.6 1.0-5.5 #) [place] 314791-08-10 09:30:00 Test Item Value Reference Range Interpretation Comments Monocytes # (test code 0.2 See_Comment [Aut omated message] The = Monocytes #) system which generated this result tra nsmitted reference range : <=0.8. The reference r leo was not used to int erpret this result as normal/abnormal . [facility] HospitalAqorgwmQWSAUTLVIB6519-33-20 09:30:00 Test Item Value Reference Range Interpretation Comments Eosinophils # (test code 0.1 See_Comment [A utomated message] The = Eosinophils #) system whic h generated this result tra nsmitted reference range : <=0.5. The reference r leo was not used to int erpret this result as normal/abnormal . [facility] HospitalCzazxqvBTJVWBFSDQ3407-10-01 09:30:00 Test Item Value Reference Range Interpretation [...] studies, if clinically indicated, are recommended. CPT: 14057 [place] 314791-08-10 09:30:00 Test Item Value Reference Range Interpretation Comments WBC (test code = WBC) 2.5 3.7-10.4 [place] 314791-08-10 09:30:00 Test Item Value Reference Range Interpretation Comments RBC (test code = RBC) 2.68 4.20-5.40 [place] [address]-08-10 09:30:00 Test Item Value Reference Range Interpretation Comments Hgb (test code = Hgb) 8.2 12.0-16.0 [place] [address]-08-10 09:30:00 Test Item Value Reference Range Interpretation Comments Hct (test code = Hct) 24.3 36.0-48.0 [place] [address]-08-10 09:30:00 Test Item Value Reference Range Interpretation Comments MCV (test code = MCV) 90.9 80.0-98.0 [place] [address]-08-10 09:30:00 Test Item Value Reference Range Interpretation Comments MCH (test code = MCH) 30.5 pg 27.0-31.0 [facility] HospitalFvabmqeEFXITKAHVC1983-24-00 09:30:00 Test Item Value Reference Range Interpretation Comments MCHC (test code = MCHC) 33.6 32.0-36.0 [place] 314791-08-10 09:30:00 Test Item Value Reference Range Interpretation Comments RDW (test code = RDW) 19.4 11.5-14.5 [facility] HospitalYcglszaXACWHGVRKW7187-82-83 09:30:00 Test Item Value Reference Range Interpretation Comments Platelet (test code = Platelet) 70 133-450 [facility] HospitalLmqmmjkSGHGGYGVAQ0127-88-63 09:30:00 Test Item Value Reference Range Interpretation Comments MPV (test code = MPV) 10.7 7.4-10.4 [place] 117061-08-09 05:10:00 Test Item Value Reference Range Interpretation Comments Glucose Lvl (test code = Glucose Lvl) 69 70-99 [facility]2021-08-09 05:10:00 Test Item Value Reference Range Interpretation Comments BUN (test code = BUN) 29 7-22 [facility]2021-08-09 05:10:00 Test Item Value Reference Range Interpretation Comments Creatinine Lvl (test code = Creatinine 5.14 0.50-1.40 Lvl) [facility]2021-08-09 05:10:00 Test Item Value Reference Range Interpretation Comments Sodium Lvl (test code = Sodium Lvl) 134 135-145 [facility]2021-08-09 05:10:00 Test Item Value Reference Range Interpretation Comments Potassium Lvl (test code = Potassium 5.1 3.5-5.1 Lvl) [facility]2021-08-09 05:10:00 Test Item Value Reference Range Interpretation Comments Chloride Lvl (test code = Chloride Lvl) 98 95-109 [facility]2021-08-09 05:10:00 Test Item Value Reference Range Interpretation Comments CO2 (test code = CO2) 29 24-32 [facility]2021-08-09 05:10:00 Test Item Value Reference Range Interpretation Comments Calcium Lvl (test code = Calcium Lvl) 7.6 8.5-10.5 [place] 117061-08-09 05:10:00 Test Item Value Reference Range Interpretation Comments AGAP (test code = AGAP) 12.1 10.0-20.0 [place] 117061-08-09 05:10:00 Test Item Value Reference Range Interpretation Comments eGFR (test code = eGFR) 10 [facility]2021-08-09 05:10:00 Test Item Value Reference Range Interpretation Comments Magnesium Lvl (test code = Magnesium 2.3 1.8-2.4 Lvl) [place] 117061-08-09 05:10:00 Test Item Value Reference Range Interpretation Comments Phosphorus (test code = Phosphorus) 5.0 2.5-4.5 [place] 314791-08-09 05:10:00 Test Item Value Reference Range Interpretation Comments WBC (test code = WBC) 2.7 3.7-10.4 [place] 314791-08-09 05:10:00 Test Item Value Reference Range Interpretation Comments RBC (test code = RBC) 2.80 4.20-5.40 [place] 314791-08-09 05:10:00 Test Item Value Reference Range Interpretation Comments Hgb (test code = Hgb) 8.5 12.0-16.0 [place] 314791-08-09 05:10:00 Test Item Value Reference Range Interpretation Comments Hct (test code = Hct) 25.7 36.0-48.0 [place] 314791-08-09 05:10:00 Test Item Value Reference Range Interpretation Comments MCV (test code = MCV) 91.7 80.0-98.0 [place] 314791-08-09 05:10:00 Test Item Value Reference Range Interpretation Comments MCH (test code = MCH) 30.4 pg 27.0-31.0 [place] 314791-08-09 05:10:00 Test Item Value Reference Range Interpretation Comments MCHC (test code = MCHC) 33.1 32.0-36.0 [place] [address]-08-09 05:10:00 Test Item Value Reference Range Interpretation Comments RDW (test code = RDW) 19.2 11.5-14.5 [place] 314791-08-09 05:10:00 Test Item Value Reference Range Interpretation Comments Platelet (test code = Platelet) 72 133-450 [facility] HospitalIjsnuieKKMIMHXNPJ4034-67-02 05:10:00 Test Item Value Reference Range Interpretation Comments MPV (test code = MPV) 9.9 7.4-10.4 [place] 314791-08-09 05:10:00 Test Item Value Reference Range Interpretation Comments Segs (test code = Segs) 72.6 45.0-75.0 [facility] HospitalYjzqolcQNZJRPBSGC8982-47-17 05:10:00 Test Item Value Reference Range Interpretation Comments Lymphocytes (test code = Lymphocytes) 15.9 20.0-40.0 [place] 314791-08-09 05:10:00 Test Item Value Reference Range Interpretation Comments Monocytes (test code = Monocytes) 7.3 2.0-12.0 [place] 314791-08-09 05:10:00 Test Item Value Reference Range Interpretation Comments Eosinophils (test code = 3.4 See_Comment [A utomated message] The Eosinophils) system which ge nerated this result tra nsmitted reference range : <=4.0. The reference r leo was not used to int erpret this result as normal/abnormal . [facility] HospitalNpbvlvbINHEZAMXWT8114-86-90 05:10:00 Test Item Value Reference Range Interpretation Comments Basophils (test code = 0.8 See_Comment [Aut omated message] The Basophils) system which ge nerated this result tra nsmitted reference range : <=1.0. The reference r leo was not used to int erpret this result as normal/abnormal . [facility] HospitalMafsxxcPAVRKMMRLS8994-40-74 05:10:00 Test Item Value Reference Range Interpretation Comments Neutrophils # (test code = Neutrophils 1.9 1.5-8.1 #) [facility] HospitalVritzldPBLEULEHJD7462-27-68 05:10:00 Test Item Value Reference Range Interpretation Comments Lymphocytes # (test code = Lymphocytes 0.4 1.0-5.5 #) [facility] HospitalKbxcpycFVXLTNXIVU1534-03-35 05:10:00 Test Item Value Reference Range Interpretation Comments Monocytes # (test code 0.2 See_Comment [Aut omated message] The = Monocytes #) system which generated this result tra nsmitted reference range : <=0.8. The reference r leo was not used to int erpret this result as normal/abnormal . [facility]GvzegnxVAWTFSMWMP5527-55-61 05:10:00 Test Item Value Reference Range Interpretation Comments Eosinophils # (test code 0.1 See_Comment [A utomated message] The = Eosinophils #) system whic h generated this result tra nsmitted reference range : <=0.5. The reference r leo was not used to int erpret this result as normal/abnormal . [facility] G[facility]DKNKM3893[facility]13-02 05:10:00 Test Item Value Reference Range Interpretation Comments Ca Ion WB (test code = Ca Ion WB) 1.10 1.05-1.25 [facility]RO[facility] DLLAWEM2933-49-79 05:10:00 Test Item Value Reference Range Interpretation Comments Ca Norm WB (test code = Ca Norm WB) 1.06 1.05-1.25 [facility] MZFQHUWHJM1415-83-60 18:36:00 Test Item Value Reference Range Interpretation Comments C difficile DNA (test Negative (01/26/21 1:36 code = C difficile DNA) PM) [facility] SBFPKNH0547-76-54 07:33:00 Test Item Value Reference Range Interpretation Comments Ca Ion WB (test code = Ca Ion WB) 1.12 1.05-1.25 [facility] XWKVXWE4599-33-72 07:33:00 Test Item Value Reference Range Interpretation Comments Ca Norm WB (test code = Ca Norm WB) 1.07 1.05-1.25 [facility]inteinterspireSubmit [id number] 07:30:00 Test Item Value Reference Range Interpretation Comments Glucose Lvl (test code = Glucose Lvl) 65 70-99 [facility]inte[facility]spireSubmit FCMCL1719-30-26 07:30:00 Test Item Value Reference Range Interpretation Comments BUN (test code = BUN) 21 7-22 [facility] PYCSN4072-97-82 07:30:00 Test Item Value Reference Range Interpretation Comments Creatinine Lvl (test code = Creatinine 4.18 0.50-1.40 Lvl) [facility] ETHOG4862-34-32 07:30:00 Test Item Value Reference Range Interpretation Comments Sodium Lvl (test code = Sodium Lvl) 136 135-145 [facility] VZYWO4328-32-53 07:30:00 Test Item Value Reference Range Interpretation Comments Potassium Lvl (test code = Potassium 4.5 3.5-5.1 Lvl) [place] 117061-08-08 07:30:00 Test Item Value Reference Range Interpretation Comments Chloride Lvl (test code = Chloride Lvl) 99 95-109 [place] 117061-08-08 07:30:00 Test Item Value Reference Range Interpretation Comments CO2 (test code = CO2) 31 24-32 [place] 117061-08-08 07:30:00 Test Item Value Reference Range Interpretation Comments AGAP (test code = AGAP) 10.5 10.0-20.0 [place] 117061-08-08 07:30:00 Test Item Value Reference Range Interpretation Comments Calcium Lvl (test code = Calcium Lvl) 7.9 8.5-10.5 [place] 117061-08-08 07:30:00 Test Item Value Reference Range Interpretation Comments eGFR (test code = eGFR) 13 [place] 117061-08-08 07:30:00 Test Item Value Reference Range Interpretation Comments Magnesium Lvl (test code = Magnesium 2.2 1.8-2.4 Lvl) [place] 117061-08-08 07:30:00 Test Item Value Reference Range Interpretation Comments Phosphorus (test code = Phosphorus) 4.4 2.5-4.5 [place] 314791-08-08 07:30:00 Test Item Value Reference Range Interpretation Comments WBC (test code = WBC) 2.3 3.7-10.4 [place] 314791-08-08 07:30:00 Test Item Value Reference Range Interpretation Comments RBC (test code = RBC) 2.88 4.20-5.40 [place] 314791-08-08 07:30:00 Test Item Value Reference Range Interpretation Comments Hgb (test code = Hgb) 8.6 12.0-16.0 [place] 314791-08-08 07:30:00 Test Item Value Reference Range Interpretation Comments Hct (test code = Hct) 26.6 36.0-48.0 [place] 314791-08-08 07:30:00 Test Item Value Reference Range Interpretation Comments MCV (test code = MCV) 92.2 80.0-98.0 [facility] HospitalMznxmsuZHTQKJSZDJ1660-42-03 07:30:00 Test Item Value Reference Range Interpretation Comments MCH (test code = MCH) 29.8 pg 27.0-31.0 [facility] [facility]blfQXLBJ[facility]COQ0775[facility]76-14 07:30:00 Test Item Value Reference Range Interpretation Comments MCHC (test code = MCHC) 32.4 32.0-36.0 [facility]KkvxwyeXXXTJPUDVM6929-78-58 07:30:00 Test Item Value Reference Range Interpretation Comments RDW (test code = RDW) 19.7 11.5-14.5 [place] 314791-08-08 07:30:00 Test Item Value Reference Range Interpretation Comments Platelet (test code = Platelet) 83 133-450 [facility] HospitalRxbpytaBREEHPIBPF5042-37-26 07:30:00 Test Item Value Reference Range Interpretation Comments MPV (test code = MPV) 10.2 7.4-10.4 [facility] HospitalLyhbxivVCJIGXXFAY9025-00-47 07:30:00 Test Item Value Reference Range Interpretation Comments Segs (test code = Segs) 64.0 45.0-75.0 [facility] HospitalSzihqlaVNLEGQQYIO1031-22-20 07:30:00 Test Item Value Reference Range Interpretation Comments Lymphocytes (test code = Lymphocytes) 24.1 20.0-40.0 [facility] HospitalClfqahkNNPSYWIGUE8463-00-53 07:30:00 Test Item Value Reference Range Interpretation Comments Monocytes (test code = Monocytes) 7.0 2.0-12.0 [facility] HospitalGmfchcgDUIVFANPOP1075-41-35 07:30:00 Test Item Value Reference Range Interpretation Comments Eosinophils (test code = 3.7 See_Comment [A utomated message] The Eosinophils) system which ge nerated this result tra nsmitted reference range : <=4.0. The reference r leo was not used to int erpret this result as normal/abnormal . [facility] HospitalEwaqxhlXMBLBNDNWY7002-34-25 07:30:00 Test Item Value Reference Range Interpretation Comments Basophils (test code = 1.2 See_Comment [Aut omated message] The Basophils) system which ge nerated this result tra nsmitted reference range : <=1.0. The reference r leo was not used to int erpret this result as normal/abnormal . [place] 314791-08-08 07:30:00 Test Item Value Reference Range Interpretation Comments Neutrophils # (test code = Neutrophils 1.5 1.5-8.1 #) [place] 314791-08-08 07:30:00 Test Item Value Reference Range Interpretation Comments Lymphocytes # (test code = Lymphocytes 0.6 1.0-5.5 #) [place] 314791-08-08 07:30:00 Test Item Value Reference Range Interpretation Comments Monocytes # (test code 0.2 See_Comment [Aut omated message] The = Monocytes #) system which generated this result tra nsmitted reference range : <=0.8. The reference r leo was not used to int erpret this result as normal/abnormal . [place] 314791-08-08 07:30:00 Test Item Value Reference Range Interpretation Comments Eosinophils # (test code 0.1 See_Comment [A utomated message] The = Eosinophils #) system whic h generated this result tra nsmitted reference range : <=0.5. The reference r leo was not used to int erpret this result as normal/abnormal . [place] 117061-08-07 09:32:00 Test Item Value Reference Range Interpretation Comments Glucose Lvl (test code = Glucose Lvl) 59 70-99 [place] 117061-08-07 09:32:00 Test Item Value Reference Range Interpretation Comments BUN (test code = BUN) 11 7-22 [place] [address]-08-07 09:32:00 Test Item Value Reference Range Interpretation Comments Creatinine Lvl (test code = Creatinine 2.75 0.50-1.40 Lvl) [place] 117061-08-07 09:32:00 Test Item Value Reference Range Interpretation Comments Sodium Lvl (test code = Sodium Lvl) 138 135-145 [place] 117061-08-07 09:32:00 Test Item Value Reference Range Interpretation Comments Potassium Lvl (test code = Potassium 4.1 3.5-5.1 Lvl) [place] 117061-08-07 09:32:00 Test Item Value Reference Range Interpretation Comments Chloride Lvl (test code = Chloride Lvl) 104 95-109 [place] 117061-08-07 09:32:00 Test Item Value Reference Range Interpretation Comments CO2 (test code = CO2) 29 24-32 [place] 117061-08-07 09:32:00 Test Item Value Reference Range Interpretation Comments Calcium Lvl (test code = Calcium Lvl) 8.3 8.5-10.5 [place] 117061-08-07 09:32:00 Test Item Value Reference Range Interpretation Comments AGAP (test code = AGAP) 9.1 10.0-20.0 [place] 117061-08-07 09:32:00 Test Item Value Reference Range Interpretation Comments eGFR (test code = eGFR) 21 [place] 117061-08-07 09:32:00 Test Item Value Reference Range Interpretation Comments Magnesium Lvl (test code = Magnesium 2.2 1.8-2.4 Lvl) [place] 117061-08-07 09:32:00 Test Item Value Reference Range Interpretation Comments Phosphorus (test code = Phosphorus) 3.9 2.5-4.5 [place] 314791-08-07 09:32:00 Test Item Value Reference Range Interpretation Comments WBC (test code = WBC) 2.3 3.7-10.4 [place] [address]-08-07 09:32:00 Test Item Value Reference Range Interpretation Comments RBC (test code = RBC) 2.78 4.20-5.40 [place] 314791-08-07 09:32:00 Test Item Value Reference Range Interpretation Comments Hgb (test code = Hgb) 8.4 12.0-16.0 [place] 314791-08-07 09:32:00 Test Item Value Reference Range Interpretation Comments Hct (test code = Hct) 25.2 36.0-48.0 [place] 314791-08-07 09:32:00 Test Item Value Reference Range Interpretation Comments MCV (test code = MCV) 90.5 80.0-98.0 [place] [address]-08-07 09:32:00 Test Item Value Reference Range Interpretation Comments MCH (test code = MCH) 30.4 pg 27.0-31.0 [place] [address]-08-07 09:32:00 Test Item Value Reference Range Interpretation Comments MCHC (test code = MCHC) 33.5 32.0-36.0 [place] [address]-08-07 09:32:00 Test Item Value Reference Range Interpretation Comments RDW (test code = RDW) 19.0 11.5-14.5 [facility] HospitalRcnnlxzCFUHDQJLPT1077-33-20 09:32:00 Test Item Value Reference Range Interpretation Comments Platelet (test code = Platelet) 87 133-450 [facility] HospitalKwgvwikATOZQPTPIE8233-59-34 09:32:00 Test Item Value Reference Range Interpretation Comments MPV (test code = MPV) 10.0 7.4-10.4 [facility] HeightsExRo TechnologiesPureBrands GKYVBDT5980-34-13 05:33:00 Test Item Value Reference Range Interpretation Comments ABO/Rh (test code = ABO/Rh) B POS [facility] [employer] [facility] LVYIGPR8269-41-62 05:33:00 Test Item Value Reference Range Interpretation Comments Antibody Scrn (test Negative (01/24/21 12:33 code = Antibody Scrn) AM) [facility] HospitalPumcpsaDBYOWCJUCB3257-65-32 05:33:00 Test Item Value Reference Range Interpretation Comments Segs (test code = Segs) 60.2 45.0-75.0 [facility]inteQaotvndAPRHVLNILY1284-58-45 05:33:00 Test Item Value Reference Range Interpretation Comments Lymphocytes (test code = Lymphocytes) 28.6 20.0-40.0 [facility] PointeHdlrqjdNDGXJRFZBR0914-50-38 05:33:00 Test Item Value Reference Range Interpretation Comments Monocytes (test code = Monocytes) 5.8 2.0-12.0 [facility] PointeNveowioPZGBMXIHZP4010-62-31 05:33:00 Test Item Value Reference Range Interpretation Comments Eosinophils (test code = 4.2 See_Comment [A utomated message] The Eosinophils) system which ge nerated this result tra nsmitted reference range : <=4.0. The reference r leo was not used to int erpret this result as normal/abnormal . [facility] PointeJehglyqKEWPULIBNM9485-58-60 05:33:00 Test Item Value Reference Range Interpretation Comments Basophils (test code = 1.2 See_Comment [Aut omated message] The Basophils) system which ge nerated this result tra nsmitted reference range : <=1.0. The reference r leo was not used to int erpret this result as normal/abnormal . [facility] HospitalZfbdxcaBRKIWGYQHM9127-14-78 05:33:00 Test Item Value Reference Range Interpretation Comments Neutrophils # (test code = Neutrophils 2.2 1.5-8.1 #) [facility] HospitalAdpvbykKKQXPIKOHZ3404-03-30 05:33:00 Test Item Value Reference Range Interpretation Comments Lymphocytes # (test code = Lymphocytes 1.1 1.0-5.5 #) [facility] HospitalEunthhnMFJWSSYJPW9499-74-93 05:33:00 Test Item Value Reference Range Interpretation Comments Monocytes # (test code 0.2 See_Comment [Aut omated message] The = Monocytes #) system which generated this result tra nsmitted reference range : <=0.8. The reference r leo was not used to int erpret this result as normal/abnormal . [place] 314791-08-06 05:33:00 Test Item Value Reference Range Interpretation Comments Eosinophils # (test code 0.2 See_Comment [A utomated message] The = Eosinophils #) system whic h generated this result tra nsmitted reference range : <=0.5. The reference r leo was not used to int erpret this result as normal/abnormal . [facility] HospitalDfldlenTAOAUYYYWE8287-46-11 05:53:00 Test Item Value Reference Range Interpretation Comments PT (test code = PT) 14.4 s 12.0-14.7 [facility] HospitalFqazcimIEGIWTBCJW3503-72-57 05:53:00 Test Item Value Reference Range Interpretation Comments INR (test code = INR) 1.13 1 0.85-1.17 [facility] HospitalQizxwbfGKMAIKNOMA4631-20-14 05:53:00 Test Item Value Reference Range Interpretation Comments Fibrinogen Lvl (test code = Fibrinogen 319 230-510 Lvl) [facility] HospitalHxueoaaDPOMCZEZZX1651-45-03 05:53:00 Test Item Value Reference Range Interpretation Comments Thrombin Time (test code = Thrombin 15.9 s 15.0-21.2 Time) [facility] HospitalYnhtauwZPGYUKQGFT5131-93-13 05:53:00 Test Item Value Reference Range Interpretation Comments PTT (test code = PTT) 47.0 s 22.9-35.8 [facility] HospitalOiluuvdESUKAUYBYG5026-92-50 05:53:00 Test Item Value Reference Range Interpretation Comments D-Dimer (test code = D-Dimer) 0.91 [place] 314791-08-05 05:53:00 Test Item Value Reference Range Interpretation Comments Basophils # (test code 0.1 See_Comment [Aut omated message] The = Basophils #) system which generated this result tra nsmitted reference range : <=0.2. The reference r leo was not used to int erpret this result as normal/abnormal . [facility]2021-08-05 05:53:00 Test Item Value Reference Range Interpretation Comments Ca Ion WB (test code = Ca Ion WB) 1.24 1.05-1.25 [facility]2021-08-05 05:53:00 Test Item Value Reference Range Interpretation Comments Ca Norm WB (test code = Ca Norm WB) 1.25 1.05-1.25 [facility] [employer] [id number] 10:09:00 Test Item Value Reference Range Interpretation Comments ALT (test code = ALT) 49 See_Comment [Auto mated message] The system which ge nerated this result transmit rohit reference range : <=65. The reference range was not used to interpr et this result as reji l/abnormal. [facility] [employer] [id number] 10:09:00 Test Item Value Reference Range Interpretation Comments Albumin Lvl (test code = Albumin Lvl) 2.8 3.5-5.0 [facility] [employer] [id number] 10:09:00 Test Item Value Reference Range Interpretation Comments Alk Phos (test code = Alk Phos) 41 39-136 [facility] [employer] [id number] 10:09:00 Test Item Value Reference Range Interpretation Comments Bili Direct (test code 0.2 See_Comment [Aut omated message] The = Bili Direct) system which generated this result tra nsmitted reference range : <=0.3. The reference r leo was not used to int erpret this result as reji l/abnormal. [facility] [employer] [id number] 10:09:00 Test Item Value Reference Range Interpretation Comments Bili Total (test code = Bili Total) 0.6 0.2-1.3 [facility] [employer] [id number] 10:09:00 Test Item Value Reference Range Interpretation Comments Bili Indirect (test 0.4 See_Comment [Automa rohit message] The code = Bili Indirect) system which generated this result tra nsmitted reference range : <=1.0. The reference r leo was not used to int erpret this result as normal/abnormal . [facility]2021-08-04 10:09:00 Test Item Value Reference Range Interpretation Comments Total Protein (test code = Total 5.6 6.4-8.4 Protein) [facility]2021-08-04 10:09:00 Test Item Value Reference Range Interpretation Comments AST (test code = AST) 33 See_Comment [Auto mated message] The system which ge nerated this result transmit rohit reference range : <=37. The reference range was not used to interpr et this result as reji l/abnormal. [facility]2021-08-04 10:09:00 Test Item Value Reference Range Interpretation Comments Globulin (test code = Globulin) 2.8 2.7-4.2 [facility]2021-08-04 10:09:00 Test Item Value Reference Range Interpretation Comments A/G Ratio (test code = A/G Ratio) 1.0 1 0.7-1.6 [facility]2021-08-04 10:09:00 Test Item Value Reference Range Interpretation Comments Amylase Lvl (test code = Amylase Lvl) 19 25-115 [facility]2021-08-04 10:09:00 Test Item Value Reference Range Interpretation Comments Lipase Lvl (test code = Lipase Lvl) no gt 73-393 [facility] HospitalIpnltstZVCWQSAOPS2534-84-88 10:09:00 Test Item Value Reference Range Interpretation Comments PTT (test code = PTT) 41.4 s 22.9-35.8 [facility] HospitalKoispsaQAXTLRZQQP0784-15-33 10:09:00 Test Item Value Reference Range Interpretation Comments PT (test code = PT) 15.4 s 12.0-14.7 [place] 314791-08-04 10:09:00 Test Item Value Reference Range Interpretation Comments INR (test code = INR) 1.24 1 0.85-1.17 [facility] HospitalHlsjqpaXODBHHNDRP3547-98-56 10:09:00 Test Item Value Reference Range Interpretation Comments Fibrinogen Lvl (test code = Fibrinogen 312 230-510 Lvl) [facility] HospitalCknkebgVRVNOKEEAS9965-53-68 10:09:00 Test Item Value Reference Range Interpretation Comments Thrombin Time (test code = Thrombin 16.6 s 15.0-21.2 Time) [place] 314791-08-04 10:09:00 Test Item Value Reference Range Interpretation Comments D-Dimer (test code = D-Dimer) 4.91 [facility]CCSLJ[facility]QQN7211[facility] 10:09:00 Test Item Value Reference Range Interpretation Comments Basophils # (test code 0.1 See_Comment [Aut omated message] The = Basophils #) system which generated this result tra nsmitted reference range : <=0.2. The reference r leo was not used to int erpret this result as normal/abnormal . [facility] [id number] 10:09:00 Test Item Value Reference Range Interpretation Comments Hgb A1C (test code = Hgb A1C) 5.6 [facility]inteCHE[facility] [id number] 09:07:00 Test Item Value Reference Range Interpretation Comments Amylase Lvl (test code = Amylase Lvl) 4 25-115 [facility] PointePdveuudYWGTVDCJOA0437-47-96 09:07:00 Test Item Value Reference Range Interpretation Comments Thrombin Time (test code = Thrombin 18.0 s 15.0-21.2 Time) [facility]QekytoiQIOCFIYKOO1221-66-07 09:07:00 Test Item Value Reference Range Interpretation Comments PT (test code = PT) 24.6 s 12.0-14.7 [facility] HospitalXyvddvtAVMSQMJQYU6390-66-25 09:07:00 Test Item Value Reference Range Interpretation Comments INR (test code = INR) 2.31 1 0.85-1.17 [facility] HospitalPrnhhpgMBFGSXISGZ0599-92-40 09:07:00 Test Item Value Reference Range Interpretation Comments PTT (test code = PTT) 57.5 s 22.9-35.8 [facility] PointeWmizzszOLDJXRZUWL1777-01-50 09:07:00 Test Item Value Reference Range Interpretation Comments Fibrinogen Lvl (test code = Fibrinogen 125 230-510 Lvl) [facility] PointeFlbzsqiIFYXMIYBQG6213-66-17 09:07:00 Test Item Value Reference Range Interpretation Comments D-Dimer (test code = D-Dimer) 2.28 [facility] [id number] 04:52:00 Test Item Value Reference Range Interpretation Comments RBC product (test code Product available = RBC product) (01/21/21 11:52 PM) [facility]inteCARDIAC [id number] 00:38:00 Test Item Value Reference Range Interpretation Comments Troponin-I (test code no gt See_Comment [Auto mated message] The = Troponin-I) system which g enerated this result transmit rohit reference range : <=0.40. The reference r leo was not used to interpr et this result as reji l/abnormal. [facility] [employer] [id number] 17:47:00 Test Item Value Reference Range Interpretation Comments BNP (test code = BNP) 2324 [facility] HeightsaX[facility] AHEZDIZ9931-67-23 17:47:00 Test Item Value Reference Range Interpretation Comments Troponin-I (test code 0.02 See_Comment [Auto mated message] The = Troponin-I) system which g enerated this result transmit rohit reference range : <=0.40. The reference r leo was not used to interpr et this result as reji l/abnormal. [facility] TxubjyaIYCXGJOIPN0311-71-75 17:47:00 Test Item Value Reference Range Interpretation Comments Hep Bs Ag (test code Negative *NA*(01/21/21 = Hep Bs Ag) 12:47 PM) [facility] [employer] [id number] 17:43:00 Test Item Value Reference Range Interpretation Comments B/C Ratio (test code = B/C Ratio) 5 1 6-25 [facility] [employer] [id number] 17:43:00 Test Item Value Reference Range Interpretation Comments ALT (test code = ALT) 66 See_Comment [Auto mated message] The system which ge nerated this result transmit rohit reference range : <=65. The reference range was not used to interpr et this result as reji l/abnormal. [facility] [employer]2021-08-03 17:43:00 Test Item Value Reference Range Interpretation Comments Albumin Lvl (test code = Albumin Lvl) 3.0 3.5-5.0 [facility] [employer]2021-08-03 17:43:00 Test Item Value Reference Range Interpretation Comments Alk Phos (test code = Alk Phos) 40 39-136 [facility] [employer] [id number] 17:43:00 Test Item Value Reference Range Interpretation Comments Bili Total (test code = Bili Total) 0.5 0.2-1.3 [facility] [employer]2021-08-03 17:43:00 Test Item Value Reference Range Interpretation Comments Total Protein (test code = Total 5.7 6.4-8.4 Protein) [facility] [employer] [id number] 17:43:00 Test Item Value Reference Range Interpretation Comments AST (test code = AST) 52 See_Comment [Auto mated message] The system which ge nerated this result transmit rohit reference range : <=37. The reference range was not used to interpr et this result as reji l/abnormal. [facility] [employer] [id number] 17:43:00 Test Item Value Reference Range Interpretation Comments Globulin (test code = Globulin) 2.7 2.7-4.2 [facility] [employer] [id number] 17:43:00 Test Item Value Reference Range Interpretation Comments A/G Ratio (test code = A/G Ratio) 1.1 1 0.7-1.6 [facility] [employer] [id number] 17:43:00 Test Item Value Reference Range Interpretation Comments Lactic Acid Lvl (test code = Lactic 1.1 0.5-2.2 Acid Lvl) [facility] [id number] 16:20:00 Test Item Value Reference Range Interpretation Comments ABO/Rh (test code = ABO/Rh) B POS [facility] [employer] [facility] [id number] 16:20:00 Test Item Value Reference Range Interpretation Comments Antibody Scrn (test Negative (01/21/21 11:20 code = Antibody Scrn) AM) [facility] HeightsHhlwvonJINLMBQKWK5967-77-29 16:20:00 Test Item Value Reference Range Interpretation Comments Anisocyte (test code = 1+ *ABN*(01/21/21 Anisocyte) 11:20 AM) [facility] HeightsJ[facility] LAB [id number] 15:35:00 Test Item Value Reference Range Interpretation Comments Lactase Lvl (test code = Lactase Lvl) 2.0 [facility] [employer] LAB [id number] 15:35:00 Test Item Value Reference Range Interpretation Comments Sucrase Lvl (test code = Sucrase Lvl) 38.6 [facility] [employer] LAB [id number] 15:35:00 Test Item Value Reference Range Interpretation Comments Maltase Lvl (test code = Maltase Lvl) 177.2 [facility] [employer] [id number] 15:35:00 Test Item Value Reference Range Interpretation Comments Palatinase Lvl (test code = Palatinase 13.8 Lvl) [facility] HeightsUgbsinfHLRLSLRVMDEU9353-88-68 13:21:00 Test Item Value Reference Range Interpretation Comments Potassium WB (test code = Potassium WB) 5.1 3.5-5.1 [facility] PointeDbmgcvtHFVVRBHIWIKYY4761-09-34 13:21:00 Test Item Value Reference Range Interpretation Comments S Preg (test code = S Negative 8*NA*(01/21/21 Preg) 8:21 AM) [facility] PointeGlmictcQBRVIVLNHH8783-32-20 11:19:00 Test Item Value Reference Range Interpretation Comments Coronavirus (COVID-19) Not Detected (01/21/21 EMANUEL (test code = 6:19 AM) Coronavirus (COVID-19) EMANUEL) [facility] [id number] 16:39:05 Test Item Value Reference Range Interpretation Comments Glucose POC (test 183 mg/dL 70-115 H If you con administrative executive your code = Glucose POC) patient critically ill, the Merlin-Accu Check Infrom II meter should not be used for Glucose determination. Draw a venous Glucose and send to the main Lab for analysis. Urine [id number] 11:32:13 Test Item Value Reference Range Interpretation [...] Escherichia coli C Urine Added by GL_SJM_UA_CUL_INDPOC [id number] 07:52:10 Test Item Value Reference Range Interpretation Comments Glucose POC (test 160 mg/dL 70-115 H If you con administrative executive your code = Glucose POC) patient critically ill, the Merlin-Accu Check Infrom II meter should not be used for Glucose determination. Draw a venous Glucose and send to the main Lab for analysis. POC [id number] 19:32:05 Test Item Value Reference Range Interpretation Comments Glucose POC (test 184 mg/dL 70-115 H If you con administrative executive your code = Glucose POC) patient critically ill, the Merlin-Accu Check Infrom II meter should not be used for Glucose determination. Draw a venous Glucose and send to the main Lab for analysis. POC [id number] 17:16:35 Test Item Value Reference Range Interpretation Comments Glucose POC (test 281 mg/dL 70-115 H Notify RN or MDIf you code = Glucose POC) consider your patient critically ill, the Merlin-Accu Chec k Infrom II meter should not be used for Glucos e determination. Draw a venous Glucose and send to the main Lab for analysis. POC [id number] 12:00:38 Test Item Value Reference Range Interpretation Comments Glucose POC (test 138 mg/dL 70-115 H Notify RN or MDIf you code = Glucose POC) consider your patient critically ill, the Merlin-Accu Chec k Infrom II meter should not be used for Glucos e determination. Draw a venous Glucose and send to the main Lab for analysis. POC [id number] 07:41:32 Test Item Value Reference Range Interpretation Comments Glucose POC (test 206 mg/dL 70-115 H Notify RN or MDIf you code = Glucose POC) consider your patient critically ill, the Merlin-Accu Chec k Infrom II meter should not be used for Glucos e determination. Draw a venous Glucose and send to the main Lab for analysis. Urinalysis [id number] 21:07:21 Test Item Value Reference Range Interpretation Comments UA WBC (test code = UA WBC) TNTC 0-5 A UA RBC (test code = UA RBC) 6-10 0-5 A UA Bacteria (test code = UA Bacteria) Profuse A UA Squam Epithelial (test code = UA 6-10 A Squam Epithelial) Urinalysis with Culture, if [id number] 20:35:14 Test Item Value Reference Range Interpretation [...] Micro Indicated Not Indicated A Ind?) POC [id number] 19:06:34 Test Item Value Reference Range Interpretation Comments Glucose POC (test 207 mg/dL 70-115 H If you con administrative executive your code = Glucose POC) patient critically ill, the Merlin-Accu Check Infrom II meter should not be used for Glucose determination. Draw a venous Glucose and send to the main Lab for analysis. POC [id number] 17:12:03 Test Item Value Reference Range Interpretation Comments Glucose POC (test 173 mg/dL 70-115 H Notify RN or MDIf you code = Glucose POC) consider your patient critically ill, the Merlin-Accu Chec k Infrom II meter should not be used for Glucos e determination. Draw a venous Glucose and send to the main Lab for analysis. POC [id number] 11:58:01 Test Item Value Reference Range Interpretation Comments Glucose POC (test 289 mg/dL 70-115 H Notify RN or MDIf you code = Glucose POC) consider your patient critically ill, the Merlin-Accu Chec k Infrom II meter should not be used for Glucos e determination. Draw a venous Glucose and send to the main Lab for analysis. POC [id number] 08:19:37 Test Item Value Reference Range Interpretation Comments Glucose POC (test 201 mg/dL 70-115 H Notify RN or MDIf you code = Glucose POC) consider your patient critically ill, the Merlin-Accu Chec k Infrom II meter should not be used for Glucos e determination. Draw a venous Glucose and send to the main Lab for analysis. POC [id number] 20:37:35 Test Item Value Reference Range Interpretation Comments Glucose POC (test 272 mg/dL 70-115 H If you con administrative executive your code = Glucose POC) patient critically ill, the Merlin-Accu Check Infrom II meter should not be used for Glucose determination. Draw a venous Glucose and send to the main Lab for analysis. POC [id number] 17:23:05 Test Item Value Reference Range Interpretation Comments Glucose POC (test 229 mg/dL 70-115 H If you con administrative executive your code = Glucose POC) patient critically ill, the Merlin-Accu Check Infrom II meter should not be used for Glucose determination. Draw a venous Glucose and send to the main Lab for analysis. POC [id number] 12:01:01 Test Item Value Reference Range Interpretation Comments Glucose POC (test 155 mg/dL 70-115 H If you con administrative executive your code = Glucose POC) patient critically ill, the Merlin-Accu Check Infrom II meter should not be used for Glucose determination. Draw a venous Glucose and send to the main Lab for analysis. POC [id number] 08:07:32 Test Item Value Reference Range Interpretation Comments Glucose POC (test 248 mg/dL 70-115 H If you con administrative executive your code = Glucose POC) patient critically ill, the Merlin-Accu Check Infrom II meter should not be used for Glucose determination. Draw a venous Glucose and send to the main Lab for analysis. IG [id number] 06:50:39 Test Item Value Reference Range Interpretation Comments IG (test code = IG) 0.7 % 0.0-5.0 IG Abs (test code = IG Abs) 0 x10 N Complete Blood Count with [id number] 06:50:38 Test Item Value Reference Range Interpretation [...] code = IPF) 0 % N Automated [id number] 06:50:38 Test Item Value Reference Range Interpretation Comments Neutro Auto (test code = Neutro 50.3 % 36.0-70.0 Auto) Lymph Auto (test code = Lymph Auto) 38.6 % 12.0-44.0 Chicot Auto (test code = Chicot Auto) 7.3 % 0.0-11.0 Eos, Auto (test code = Eos, Auto) 2.4 % 0.0-7.0 Basophil Auto (test code = Basophil 0.7 % 0.0-2.0 Auto) Neutro Absolute (test code = Neutro 3.0 x10 1.6-7.4 Absolute) Lymph Absolute (test code = Lymph 2.28 x10 .50-4.60 Absolute) Ch[place]ot Absolute (test code = Chicot .43 x10 .00-1.20 Absolute) Eos Absolute (test code = Eos 0.14 x10 0.00-0.74 Absolute) Baso Absolute (test code = Baso 0.04 x10 0.00-0.21 Absolute) Basic Metabolic [id number] 05:38:20 Test Item Value Reference Range Interpretation [...] = Lipemia) 0 mg/dL 8-11 Basic Metabolic [id number] 05:38:20 Test Item Value Reference Range Interpretation [...] = 0 mg/dL 8-11 Lipemia) Basic Metabolic [id number] 05:38:20 Test Item Value Reference Range Interpretation [...] ag e have not been validated by [facility] MDRD study and should be [...] ag e have not been validated by [facility] MDRD study and should be [...] code = 0 mg/dL 8-11 Lipemia) POC [id number] 20:28:33 Test Item Value Reference Range Interpretation Comments Glucose POC (test 169 mg/dL 70-115 H If you con administrative executive your code = Glucose POC) patient critically ill, the Merlin-Accu Check Infrom II meter should not be used for Glucose determination. Draw a venous Glucose and send to the main Lab for analysis. POC [id number] 16:39:30 Test Item Value Reference Range Interpretation Comments Glucose POC (test 103 mg/dL 70-115 If you con administrative executive your code = Glucose POC) patient critically ill, the Merlin-Accu Check Infrom II meter should not be used for Glucose determination. Draw a venous Glucose and send to the main Lab for analysis. RPR [id number] 12:08:56 Test Item Value Reference Range Interpretation Comments RPR Qual (test code = RPR Qual) Non-Reactive Non-Reactive Reactive Control (test code = Reactive Reactive Control) Weak Reactive Control (test Weak Reactive code = Weak Reactive Control) Non-Reactive Control (test code Non-Reactive = Non-Reactive Control) Lot # (test code = Lot #) [id number] N Expiration Dt (test code = 03-20-2021 N Expiration Dt) POC [id number] 11:52:31 Test Item Value Reference Range Interpretation Comments Glucose POC (test 250 mg/dL 70-115 H If you con administrative executive your code = Glucose POC) patient critically ill, the Merlin-Accu Check Infrom II meter should not be used for Glucose determination. Draw a venous Glucose and send to the main Lab for analysis. POC [id number] 07:55:29 Test Item Value Reference Range Interpretation Comments Glucose POC (test 205 mg/dL 70-115 H If you con administrative executive your code = Glucose POC) patient critically ill, the Merlin-Accu Check Infrom II meter should not be used for Glucose determination. Draw a venous Glucose and send to the main Lab for analysis. Lipid [id number] 05:46:04 Test Item Value Reference Range Interpretation [...] LDL/HDL Ratio=L DL Calc/HDL Chol Thyroid Stimulating [id number] 05:46:04 Test Item Value Reference Range Interpretation Comments TSH (test code = TSH) 3.274 mcIU/mL 0.550-4.780 Hemoglobin [id number] 05:41:08 Test Item Value Reference Range Interpretation Comments Hemoglobin A1c (test code 7.6 % 4.0-5.8 H Di abetic >=6.5 = Hemoglobin A1c) %Prediabet es 5.7-6.4 %Normal <5.7 % Hepatitis B Surface [id number] 21:19:36 Test Item Value Reference Range Interpretation Comments Hep Bs Ag (test code = Hep Bs Non-Reactive Non-Reactive Ag) Novel Coronavirus SARS-CoV-2, [id number] 11:16:16 Test Item Value Reference Range Interpretation [...] Emergency Use Authorization." Novel Coronavirus (COVID-19), EMANUEL [id number] 11:11:24TNPTest not sent and performed at [facility].Rapid was perfomed in Microbiology.Wrong covid test was ord ered.Urine DOA [id number] 00:17:49 Test Item Value Reference Range Interpretation [...] Propoxyphene Confirmation wi thin 7 days. Alcohol [id number] 00:17:29 Test Item Value Reference Range Interpretation Comments Ethanol Level 9.0 mg/dL N The pharmacolo gical (test code = response to blo od alcohol Ethanol Level) levels may va ry from individual to i ndividual. The fatal omkar ntration has been report ed to be >400 mg/dl. Comprehensive Metabolic [id number] 00:17:28 Test Item Value Reference Range Interpretation [...] = Lipemia) 0 g/dL 1-2 Comprehensive Metabolic [id number] 00:17:28 Test Item Value Reference Range Interpretation [...] = 0 g/dL 1-2 Lipemia) Comprehensive Metabolic [id number] 00:17:28 Test Item Value Reference Range Interpretation [...] g/dL 1-2 Lipemia) Complete Blood Count with [id number] 23:26:28 Test Item Value Reference Range Interpretation [...] code = IPF) 0 % N Automated [id number] 23:26:28 Test Item Value Reference Range Interpretation Comments Neutro Auto (test code = Neutro 67.1 % 36.0-70.0 Auto) Lymph Auto (test code = Lymph Auto) 23.3 % 12.0-44.0 Chicot Auto (test code = Chicot Auto) 5.8 % 0.0-11.0 Eos, Auto (test code = Eos, Auto) 2.3 % 0.0-7.0 Basophil Auto (test code = Basophil 0.8 % 0.0-2.0 Auto) Neutro Absolute (test code = Neutro 6.0 x10 1.6-7.4 Absolute) Lymph Absolute (test code = Lymph 2.10 x10 .50-4.60 Absolute) Ch[place]ot Absolute (test code = [place] .52 x10 .00-1.20 Absolute) Eos Absolute (test code = Eos 0.21 x10 0.00-0.74 Absolute) Baso Absolute (test code = Baso 0.07 x10 0.00-0.21 Absolute) IG [id number] 23:26:28 Test Item Value Reference Range Interpretation Comments IG (test code = IG) 0.7 % 0.0-5.0 IG Abs (test code = IG Abs) 0 x10 N HERPES VIRUS ANTIBODY, [id number] 21:46:00 Test Item Value Reference Range Interpretation Comments HERPES VIRUS IGM (BEAKER) Negative SE E ATTACHMENT (test code = 1808) BLOOD [id number] 06:00:00 Test Item Value Reference Range Interpretation Comments CULTURE (BEAKER) (test No growth in 5 days code = 1095) BLOOD [id number] 06:00:00 Test Item Value Reference Range Interpretation Comments CULTURE (BEAKER) (test No growth in 5 days code = 1095) POCT-GLUCOSE [id number] 12:11:00 Test Item Value Reference Range Interpretation Comments POC-GLUCOSE METER 154 mg/dL 70-110 H TESTED AT [facility] 6720 ([facility]) (test code = [facility] 1538) [address] POCT-GLUCOSE [id number] 07:53:00 Test Item Value Reference Range Interpretation Comments POC-GLUCOSE METER 87 mg/dL 70-110 TESTED AT [facility] 67 ([facility]) (test code = [facility] [address] 1538) POCT-GLUCOSE [id number] 06:49:00 Test Item Value Reference Range Interpretation Comments POC-GLUCOSE METER 79 mg/dL 70-110 TESTED AT [place] [address] ([facility]) (test code = [facility] [address] 1538) COMPREHENSIVE METABOLIC [id number] 06:15:00 Test Item Value Reference Range Interpretation [...] S NOT APPLICABLE FOR DIALYSIS PATIEN TS. [id number] 06:11:00 Test Item Value Reference Range Interpretation Comments MAGNESIUM (BEAKER) (test code = 2.1 mg/dL 1.6-2.6 627) HEPATIC FUNCTION [id number] 06:11:00 Test Item Value Reference Range Interpretation [...] code = 513 U/L 6-55 H 347) [id number] 05:30:00 Test Item Value Reference Range Interpretation Comments FIBRINOGEN LEVEL (BEAKER) (test 368 mg/dl 225-434 code = 658) [id number] 05:30:00 Test Item Value Reference Range Interpretation Comments PARTIAL THROMBOPLASTIN TIME 42.2 seconds 22.5-36.0 H (BEAKER) (test code = 760) PROTHROMBIN [id number] 05:29:00 Test Item Value Reference Range Interpretation Comments PROTIME (BEAKER) (test code = 14.8 seconds 11.7-14.7 H 759) INR (BEAKER) (test code = 370) 1.2 <=5.9 RECOMMENDED COUMADIN/WARFARIN INR THERAPY RANGESSTANDARD DOSE: 2.0 - 3.0 Includes: PROPHYLAXIS for venous thrombosis, systemic embolization; TREATMENT for venous thrombosis and/or pulmonary embolus.HIGH RISK: Target INR is 2.5-3.5 for patients with mechanical heart valves.POCT-GLUCOSE [id number] 21:09:00 Test Item Value Reference Range Interpretation Comments POC-GLUCOSE METER 178 mg/dL 70-110 H TESTED AT [place] [address] ([facility]) (test code = [facility] 1538) [address] POCT-GLUCOSE [id number] 17:18:00 Test Item Value Reference Range Interpretation Comments POC-GLUCOSE METER 178 mg/dL 70-110 H TESTED AT [place] [address] ([facility]) (test code = [facility] 1538) [address] POCT-GLUCOSE [id number] 13:48:00 Test Item Value Reference Range Interpretation Comments POC-GLUCOSE METER 150 mg/dL 70-110 H TESTED AT [place] [address] ([facility]) (test code = [facility] 1538) [address] FACTOR 5 ACTIVITY (BLEEDING RISK)2017-01-06 10:04:00 Test Item Value Reference Range Interpretation Comments FACTOR V ACTIVITY ([facility]) (test code 90.0 % 60.0-150.0 = 665) Effective 10/24/2013: Reference Range Change-Adult onlyNew: 60.0-150.0 Previous: 50.0-150.0CYTOMEGALOVIRUS ANTIBODY, [id number] 09:42:00 Test Item Value Reference Range Interpretation Comments CYTOMEGALOVIRUS IGM ANTIBODY Negative ([facility]) (test code = 816) HERPES VIRUS ANTIBODY, [id number] 08:59:00 Test Item Value Reference Range Interpretation Comments 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[facility]) (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 G 1807) CYTOMEGALOVIRUS ANTIBODY, [id number] 08:59:00 Test Item Value Reference Range Interpretation Comments CYTOMEGALOVIRUS IGG ANTIBODY Positive ([facility]) (test code = 790) EBV-VCA ANTIBODY, [id number] 08:59:00 Test Item Value Reference Range Interpretation Comments JASE-WALL VCA IGG ([facility]) (test Positive code = 983) EBV-VCA ANTIBODY, [id number] 08:59:00 Test Item Value Reference Range Interpretation Comments JASE-WALL VCA IGM ([facility]) (test Negative code = 984) POCT-GLUCOSE [id number] 07:59:00 Test Item Value Reference Range Interpretation Comments POC-GLUCOSE METER 81 mg/dL 70-110 TESTED AT [facility] 6720 (BEAKER) (test code = [place] [id number] 6576) COMPREHENSIVE METABOLIC [id number] 06:23:00 Test Item Value Reference Range Interpretation [...] S NOT APPLICABLE FOR DIALYSIS PATIEN TS. [id number] 06:17:00 Test Item Value Reference Range Interpretation Comments MAGNESIUM (BEAKER) (test code = 1.8 mg/dL 1.6-2.6 627) HEPATIC FUNCTION [id number] 06:17:00 Test Item Value Reference Range Interpretation [...] code = 779 U/L 6-55 H 347) [id number] 06:00:00 Test Item Value Reference Range Interpretation Comments FIBRINOGEN LEVEL (BEAKER) (test 390 mg/dl 225-434 code = 658) [id number] 06:00:00 Test Item Value Reference Range Interpretation Comments PARTIAL THROMBOPLASTIN TIME 40.2 seconds 22.5-36.0 H (BEAKER) (test code = 760) PROTHROMBIN [id number] 05:59:00 Test Item Value Reference Range Interpretation Comments PROTIME (BEAKER) (test code = 14.6 seconds 11.7-14.7 759) INR (BEAKER) (test code = 370) 1.2 <=5.9 RECOMMENDED COUMADIN/WARFARIN INR THERAPY RANGESSTANDARD DOSE: 2.0 - 3.0 Includes: PROPHYLAXIS for venous thrombosis, systemic embolization; TREATMENT for venous thrombosis and/or pulmonary embolus.HIGH RISK: Target INR is 2.5-3.5 for patients with mechanical heart valves.POCT-GLUCOSE [id number] 21:46:00 Test Item Value Reference Range Interpretation Comments POC-GLUCOSE METER 153 mg/dL 70-110 H TESTED AT [facility] 67[address] ([facility]) (test code = [facility] 1538) [address] POCT-GLUCOSE [id number] 18:47:00 Test Item Value Reference Range Interpretation Comments POC-GLUCOSE METER 181 mg/dL 70-110 H TESTED AT [facility] 67[address] ([facility]) (test code = [facility] 1538) [address] POCT-GLUCOSE [id number] 12:40:00 Test Item Value Reference Range Interpretation Comments POC-GLUCOSE METER 178 mg/dL 70-110 H TESTED AT [facility] 6720 (BEAKER) (test code = [place] [facility] 1538) [address] POCT-GLUCOSE [id number] 07:51:00 Test Item Value Reference Range Interpretation Comments POC-GLUCOSE METER 166 mg/dL 70-110 H TESTED AT [facility] 6720 (BEAKER) (test code = [place] [facility] 1538) [address] COMPREHENSIVE METABOLIC [id number] 03:26:00 Test Item Value Reference Range Interpretation [...] S NOT APPLICABLE FOR DIALYSIS PATIEN TS. [id number] 03:22:00 Test Item Value Reference Range Interpretation Comments MAGNESIUM (BEAKER) (test code = 1.4 mg/dL 1.6-2.6 L 627) HEPATIC FUNCTION [id number] 03:22:00 Test Item Value Reference Range Interpretation [...] code = 1009 U/L 6-55 H 347) [id number] 03:12:00 Test Item Value Reference Range Interpretation Comments AMMONIA (BEAKER) (test code = 348) 29 mol/L 18-72 [id number] 03:10:00 Test Item Value Reference Range Interpretation Comments PARTIAL THROMBOPLASTIN TIME 42.3 seconds 22.5-36.0 H (BEAKER) (test code = 760) PROTHROMBIN [id number] 03:09:00 Test Item Value Reference Range Interpretation Comments PROTIME (BEAKER) (test code = 16.4 seconds 11.7-14.7 H 759) INR (BEAKER) (test code = 370) 1.3 <=5.9 RECOMMENDED COUMADIN/WARFARIN INR THERAPY RANGESSTANDARD DOSE: 2.0 - 3.0 Includes: PROPHYLAXIS for venous thrombosis, systemic embolization; TREATMENT for venous thrombosis and/or pulmonary embolus.HIGH RISK: Target INR is 2.5-3.5 for patients with mechanical heart valves.[id number] 03:09:00 Test Item Value Reference Range Interpretation Comments FIBRINOGEN LEVEL (BEAKER) (test 413 mg/dl 225-434 code = 658) CBC W/PLT COUNT & AUTO [id number] 03:09:00 Test Item Value Reference Range Interpretation [...] L 0.00-0.20 (test code = 417) 0.00POCT-GLUCOSE [id number] 22:33:00 Test Item Value Reference Range Interpretation Comments POC-GLUCOSE METER 230 mg/dL 70-110 H TESTED AT [facility] 6720 (BEAKER) (test code = [place] [facility] 1538) [address] POCT-GLUCOSE [id number] 18:17:00 Test Item Value Reference Range Interpretation Comments POC-GLUCOSE METER 222 mg/dL 70-110 H TESTED AT [place] [id number] ([facility]) (test code = [place] [facility] 1538) [address] COMPREHENSIVE METABOLIC [id number] 16:59:00 Test Item Value Reference Range Interpretation [...] PATIEN TS. PERIPHERAL BLOOD SMEAR - PATHOLOGIST [id number] 15:30:00 Test Item Value Reference Range Interpretation Comments RBC MORPHOLOGY Polychromasia (BEAKER) (test code = 2846) RBC MORPHOLOGY Anisocytosis (BEAKER) (test code = 77197) PERIPHERAL SMR REVIEW Cell counts confirmed (BEAKER) (test code = 6030) [id number] Josefina Lara M.D. ([facility]) (test code = (electronic signature) 1094) PROTHROMBIN [id number] 15:12:00 Test Item Value Reference Range Interpretation [...] Negative Negative (test code = 418) POCT-GLUCOSE [id number] 12:47:00 Test Item Value Reference Range Interpretation Comments POC-GLUCOSE METER 212 mg/dL 70-110 H TESTED AT [facility] 67[address] ([facility]) (test code = [place] 1538) [address] [id number] 12:34:00 Test Item Value Reference Range Interpretation Comments RPR SCREEN ([facility]) (test code = Nonreactive Nonreactive 420) CLOSTRIDIUM DIFFICILE TOXIN [id number] 10:12:00 Test Item Value Reference Range Interpretation Comments CLOSTRIDIUM DIFFICILE TOXIN, PCR Not Detected Not Detected ([facility]) (test code = 1525) This qualitative real-time [...] Reference Range Change-Adult onlyNew: 60.0-150.0 Previous: 50.0-150.0POCT-GLUCOSE [id number] 06:40:00 Test Item Value Reference Range Interpretation Comments POC-GLUCOSE METER 167 mg/dL 70-110 H TESTED AT [facility] 6720 ([facility]) (test code = [place] [facility] 1538) [address] COMPREHENSIVE METABOLIC [id number] 04:08:00 Test Item Value Reference Range Interpretation Comments TOTAL PROTEIN 4.7 gm/dL 6.0-8.3 L (AKER) (test code = 770) ALBUMIN (AKER) 2.1 g/dL 3.5-5.0 L (test code = 1145) ALKALINE PHOSPHATASE 71 U/L 40-150 (AKER) (test code = 346) BILIRUBIN TOTAL 2.6 mg/dL 0.2-1.2 H (AKER) (test code = 377) SODIUM (BEAKER) 140 [...] ESTIM ATED GFR. Specimen slightly ictericHEPATIC FUNCTION [id number] 04:06:00 Test Item Value Reference Range Interpretation [...] 1091 U/L 6-55 H 347) Specimen slightly [id number] 04:01:00 Test Item Value Reference Range Interpretation Comments FIBRINOGEN LEVEL (BEAKER) (test 379 mg/dl 225-434 code = 658) [id number] 04:01:00 Test Item Value Reference Range Interpretation Comments PARTIAL THROMBOPLASTIN TIME 40.7 seconds 22.5-36.0 H (BEAKER) (test code = 760) PROTHROMBIN [id number] 04:00:00 Test Item Value Reference Range Interpretation [...] mechanical heart valves.CBC W/PLT COUNT & AUTO [id number] 03:56:00 Test Item Value Reference Range Interpretation [...] L 0.00-0.20 (test code = 417) 0.00POCT-GLUCOSE [id number] 00:19:00 Test Item Value Reference Range Interpretation Comments POC-GLUCOSE METER 159 mg/dL 70-110 H TESTED AT [facility] 67 ([facility]) (test code = [facility] 1538) [address] POCT-GLUCOSE [id number] 18:56:00 Test Item Value Reference Range Interpretation Comments POC-GLUCOSE METER 192 mg/dL 70-110 H TESTED AT [place] [address] ([facility]) (test code = [facility] 1538) [address] COMPREHENSIVE METABOLIC [id number] 16:55:00 Test Item Value Reference Range Interpretation [...] CALCULATE ESTIM ATED GFR. Specimen slightly ictericPROTHROMBIN [id number] 16:37:00 Test Item Value Reference Range Interpretation Comments PROTIME (BEAKER) (test code = 20.9 seconds 11.7-14.7 H 759) INR (BEAKER) (test code = 370) 1.8 <=5.9 RECOMMENDED COUMADIN/WARFARIN INR THERAPY RANGESSTANDARD DOSE: 2.0 - 3.0 Includes: PROPHYLAXIS for venous thrombosis, systemic embolization; TREATMENT for venous thrombosis and/or pulmonary embolus.HIGH RISK: Target INR is 2.5-3.5 for patients with mechanical heart valves.HEPATITIS B SURFACE [id number] 14:05:00 Test Item Value Reference Range Interpretation Comments HEPATITIS B SURFACE ANTIBODY < mIU/mL <8.0 (BEAKER) (test code = 647) HEPATITIS B CORE ANTIBODY, [id number] 13:43:00 Test Item Value Reference Range Interpretation Comments HEPATITIS B CORE TOTAL ANTIBODY Nonreactive Nonreactive (BEAKER) (test code = 497) BLOOD GAS, [id number] 13:35:00 Test Item Value Reference Range Interpretation [...] code = 1819) 28.0 % URINALYSIS W/ [id number] 13:16:00 Test Item Value Reference Range Interpretation [...] 1584) SOURCE(BEAKER) (test code = Urine, [place] 3680) VITAMIN D, [id number] 13:14:00 Test Item Value Reference Range Interpretation Comments VITAMIN D 25-OH (BEAKER) (test code = < ng/mL 13.0-47.8 L 2764) ALPHA FETOPROTEIN (AFP), TUMOR [id number] 13:06:00 Test Item Value Reference Range Interpretation Comments ALPHA-FETOPROTEIN (BEAKER) (test code < ng/mL <10.0 = 1094) Effective 05/08/2014: Reference Range ChangeNew: <10.0 Previous: 0.0-8.0 HEMOGLOBIN [id number] 13:05:00 Test Item Value Reference Range Interpretation Comments HEMOGLOBIN A1C (BEAKER) (test code = 7.6 % 4.3-6.1 H 368) CARCINOEMBRYONIC ANTIGEN (CEA)2017-01-03 12:59:00 Test Item Value Reference Range Interpretation Comments CARCINOEMBRYONIC ANTIGEN (BEAKER) 2.0 ng/mL 0.0-5.0 (test code = 685) [id number] 12:59:00 Test Item Value Reference Range Interpretation Comments FERRITIN (BEAKER) (test code = 1841 ng/mL 5-275 H 361) Effective 05/08/2014: Reference Range ChangeNew: Male 5-275 Previous: Male 22- 322 Female 5-275 Female [id number] 12:58:00 Test Item Value Reference Range Interpretation Comments T4 TOTAL (BEAKER) (test code = 895) 4.5 ug/dL 4.9-11.7 L [id number] 12:58:00 Test Item Value Reference Range Interpretation Comments THYROID STIMULATING HORMONE 1.79 uIU/mL 0.35-4.94 (BEAKER) (test code = 772) [id number] 12:58:00 Test Item Value Reference Range Interpretation Comments T3 TOTAL (BEAKER) (test code = 656) 34 ng/dL 48-159 L Effective 05/08/2014: Reference Range ChangeNew: 48-159 Previous: 60-181CALCIUM, [id number] 12:47:00 Test Item Value Reference Range Interpretation Comments CALCIUM IONIZED (BEAKER) (test 1.05 mmol/L 1.12-1.27 L code = 698) PH, BLOOD (BEAKER) (test code = 7.43 1810) [id number] 12:42:00 Test Item Value Reference Range Interpretation [...] % 20-55 (test code = 2590) URIC [id number] 12:40:00 Test Item Value Reference Range Interpretation Comments URIC ACID (BEAKER) (test code = 16.0 mg/dL 2.6-7.2 H 773) Specimen slightly ictericLIPID [id number] 12:40:00 Test Item Value Reference Range Interpretation [...] 160-189 Very High >=190 Specimen slightly ictericBILIRUBIN, [id number] 12:40:00 Test Item Value Reference Range Interpretation Comments BILIRUBIN DIRECT (BEAKER) (test 2.4 mg/dL 0.1-0.5 H code = 706) GAMMA GLUTAMYL TRANSFERASE (GGT)2017-01-03 12:40:00 Test Item Value Reference Range Interpretation Comments GAMMA GLUTAMYL TRANSFERASE (BEAKER) 53 U/L 9-64 (test code = 364) Specimen slightly [id number] 12:39:00 Test Item Value Reference Range Interpretation Comments ETHANOL (BEAKER) (test code = 400) < mg/dL <=10 SCREEN, [id number] 12:36:00 Test Item Value Reference Range Interpretation Comments TEST URINE (BEAKER) (test Negative code = 583) POCT-GLUCOSE [id number] 12:34:00 Test Item Value Reference Range Interpretation Comments POC-GLUCOSE METER 189 mg/dL 70-110 H TESTED AT [facility] 6720 (BEAKER) (test code = [place] 0404) [address] HIV-1 ANTIGEN WITH HIV-1/2 [id number] 11:58:00 Test Item Value Reference Range Interpretation Comments HIV-1 ANTIGEN WITH HIV 1\\T\\2 Nonreactive Nonreactive ANTIBODY (2) (BEAKER) (test code = 2586) TROPONIN [id number] 09:44:00 Test Item Value Reference Range Interpretation [...] 0.0-4.9CK-MB Reference Range:<6.7 Normal6.7-10.0 Borderline>10.0 Abnormal ACETAMINOPHEN [id number] 08:31:00 Test Item Value Reference Range Interpretation Comments ACETAMINOPHEN LEVEL (BEAKER) (test < ug/mL 10.0-30.0 L code = 344) TROPONIN [id number] 05:53:00 Test Item Value Reference Range Interpretation [...] acute neurological disease, and persistent tachyarrhythmia.BASIC METABOLIC [id number] 05:53:00 Test Item Value Reference Range Interpretation [...] TO CALCULA TE ESTIMATED GFR. Specimen slightly vyzgwekHGUGBXFWWX7926-08-07 05:52:00 Test Item Value Reference Range Interpretation Comments PHOSPHORUS (BEAKER) (test code = 5.7 mg/dL 2.3-4.7 H 604) HEPATIC FUNCTION [id number] 05:52:00 Test Item Value Reference Range Interpretation [...] Specimen slightly ictericCREATINE KINASE (CK), TOTAL AND [id number] 05:52:00 Test Item Value Reference Range Interpretation Comments CREATINE KINASE TOTAL (BEAKER) 341 U/L 29-200 H (test code = 380) CREATINE KINASE-MB (BEAKER) (test 5.4 ng/mL 0.0-6.6 code = 750) CREATINE KINASE-MB INDEX (BEAKER) 1.6 % (test code = 395) Effective 05/08/2014: CK-MB Reference Range ChangeNew: 0.0-6.6 Previous: 0.0-4.9CK-MB Reference Range:<6.7 Normal6.7-10.0 Borderline>10.0 Abnormal CBC W/PLT COUNT & AUTO [id number] 05:48:00 Test Item Value Reference Range Interpretation [...] K/ L 0.00-0.20 (test code = 417) 0.20CLUWZKVLDY9494-98-30 05:09:00 Test Item Value Reference Range Interpretation Comments FIBRINOGEN LEVEL (BEAKER) (test 427 mg/dl 225-434 code = 658) [id number] 05:09:00 Test Item Value Reference Range Interpretation Comments PARTIAL THROMBOPLASTIN TIME 36.2 seconds 22.5-36.0 H (BEAKER) (test code = 760) PROTHROMBIN TIME/[id number] 05:08:00 Test Item Value Reference Range Interpretation Comments PROTIME (BEAKER) (test code = 22.8 seconds 11.7-14.7 H 759) INR (BEAKER) (test code = 370) 2.0 <=5.9 RECOMMENDED COUMADIN/WARFARIN INR THERAPY RANGESSTANDARD DOSE: 2.0 - 3.0 Includes: PROPHYLAXIS for venous thrombosis, systemic embolization; TREATMENT for venous thrombosis and/or pulmonary embolus.HIGH RISK: Target INR is 2.5-3.5 for patients with mechanical heart valves.HEPATITIS PANEL, [id number] 03:40:00 Test Item Value Reference Range Interpretation Comments HEPATITIS A IGM ANTIBODY (BEAKER) Nonreactive Nonreactive (test code = 498) HEPATITIS B CORE IGM ANTIBODY Nonreactive Nonreactive (BEAKER) (test code = 645) HEPATITIS C ANTIBODY (BEAKER) Nonreactive Nonreactive (test code = 367) HEPATITIS B SURFACE ANTIGEN (2) Nonreactive Nonreactive (BEAKER) (test code = 2585) CREATININE, RANDOM [id number] 03:18:00 Test Item Value Reference Range Interpretation Comments CREATININE URINE (BEAKER) (test 118.7 mg/dL code = 375) Reference Range: No NormalsSODIUM, RANDOM [id number] 03:18:00 Test Item Value Reference Range Interpretation Comments SODIUM URINE (BEAKER) (test code = 60 meq/L 243) Reference Range: No NormalsUREA NITROGEN, RANDOM [id number] 03:18:00 Test Item Value Reference Range Interpretation Comments UREA NITROGEN URINE (BEAKER) (test 303 mg/dL code = 538) Reference Range: No [id number] 03:07:00 Test Item Value Reference Range Interpretation Comments AMMONIA (BEAKER) (test code = 348) 48 mol/L 18-72 Q-[id number] 02:57:00 Test Item Value Reference Range Interpretation [...] within 95-100% range. URINALYSIS W/ REFLEX URINE [id number] 02:53:00 Test Item Value Reference Range Interpretation [...] = 514) SOURCE(BEAKER) (test code = 2795) [id number] 02:49:00 Test Item Value Reference Range Interpretation Comments PARTIAL THROMBOPLASTIN TIME 39.4 seconds 22.5-36.0 H (BEAKER) (test code = 760) PROTHROMBIN TIME/[id number] 02:48:00 Test Item Value Reference Range Interpretation Comments PROTIME (BEAKER) (test code = 22.0 seconds 11.7-14.7 H 759) INR (BEAKER) (test code = 370) 1.9 <=5.9 RECOMMENDED COUMADIN/WARFARIN INR THERAPY RANGESSTANDARD DOSE: 2.0 - 3.0 Includes: PROPHYLAXIS for venous thrombosis, systemic embolization; TREATMENT for venous thrombosis and/or pulmonary embolus.HIGH RISK: Target INR is 2.5-3.5 for patients with mechanical heart valves.[id number] 02:48:00 Test Item Value Reference Range Interpretation Comments FIBRINOGEN LEVEL (BEAKER) (test 421 mg/dl 225-434 code = 658) BLOOD GAS, [id number] 02:43:00 Test Item Value Reference Range Interpretation [...] 21.0 % CBC W/PLT COUNT & AUTO [id number] 02:43:00 Test Item Value Reference Range Interpretation [...] code = 417) 0.00LACTIC ACID, VENOUS, WHOLE [id number] 02:35:00 Test Item Value Reference Range Interpretation Comments LACTATE BLOOD VENOUS (2) (BEAKER) 0.8 mmol/L 0.5-2.2 (test code = 2872) Effective 10/23/2015: Units/Reference Range ChangeNew: 0.5-2.2 mmol/L Previous: 5- 20 mg/dLSpecimen slightly [id number] 11:32:00 Test Item Value Reference Range Interpretation Comments AGAP (test code = AGAP) 14.6 10.0-20.0 [facility]ayitqxKQWVTRWBTORN5851-12-27 11:32:00 Test Item Value Reference Range Interpretation Comments eGFR (test code = eGFR) 33 [facility] HospitalHpkgadzHVXUMBNXJLCS3995-98-27 11:32:00 Test Item Value Reference Range Interpretation Comments Calcium Lvl (test code = Calcium Lvl) 8.3 8.5-10.5 [facility] HospitalCwugvixZQYNOQDYDFLU4140-95-07 11:32:00 Test Item Value Reference Range Interpretation Comments Glucose Lvl (test code = Glucose Lvl) 81 70-99 [facility] Hospital[id number] 11:32:00 Test Item Value Reference Range Interpretation Comments Creatinine Lvl (test code = Creatinine 1.95 0.50-1.40 Lvl) [facility] HospitalIcxcbjmUAWIWWXQOIKQ3455-34-88 11:32:00 Test Item Value Reference Range Interpretation Comments BUN (test code = BUN) 55 7-22 [facility] HospitalEjtfqhjINWURIACIZST5673-26-05 11:32:00 Test Item Value Reference Range Interpretation Comments CO2 (test code = CO2) 19 24-32 [facility] HospitalBiupancEZZSIEYNDHCN0152-88-07 11:32:00 Test Item Value Reference Range Interpretation Comments Chloride Lvl (test code = Chloride Lvl) 110 95-109 [facility] HospitalWvjrmgyZWMKLNMZSFEX5389-07-84 11:32:00 Test Item Value Reference Range Interpretation Comments Sodium Lvl (test code = Sodium Lvl) 139 135-145 [facility] HospitalVssvdmgRDRBAWNTRMFK3849-29-88 11:32:00 Test Item Value Reference Range Interpretation Comments Potassium Lvl (test code = Potassium 4.6 3.5-5.1 Lvl) [facility] HospitalPdiezryRKNAOFITIW7638-86-28 11:32:00 Test Item Value Reference Range Interpretation Comments Lymphocytes (test code = Lymphocytes) 30.4 20.0-40.0 [facility] HospitalTjbwmskJMAYKBWHJJ9665-31-52 11:32:00 Test Item Value Reference Range Interpretation Comments Eosinophils (test code = 4.5 See_Comment [A utomated message] The Eosinophils) system which ge nerated this result tra nsmitted reference range : <=4.0. The reference r leo was not used to int erpret this result as normal/abnormal . [facility] HospitalVhjwzwkDRSKENXMRJ2732-98-63 11:32:00 Test Item Value Reference Range Interpretation Comments Monocytes (test code = Monocytes) 13.7 2.0-12.0 [facility] HospitalHwyonozEIYBDSVWVA0322-56-61 11:32:00 Test Item Value Reference Range Interpretation Comments Segs-Bands # (test code = Segs-Bands #) 2.6 1.5-8.1 [facility] HospitalDnuknicZISHZCUQEV1475-92-84 11:32:00 Test Item Value Reference Range Interpretation Comments Basophils (test code = 0.7 See_Comment [Aut omated message] The Basophils) system which ge nerated this result tra nsmitted reference range : <=1.0. The reference r leo was not used to int erpret this result as normal/abnormal . [facility] HospitalYtpihnbWQHCXXHUIH5891-34-74 11:32:00 Test Item Value Reference Range Interpretation Comments Monocytes # (test code 0.7 See_Comment [Aut omated message] The = Monocytes #) system which generated this result tra nsmitted reference range : <=0.8. The reference r leo was not used to int erpret this result as normal/abnormal . [facility] HospitalZqebcxfCKDUAWITHX2876-42-53 11:32:00 Test Item Value Reference Range Interpretation Comments Lymphocytes # (test code = Lymphocytes 1.6 1.0-5.5 #) [facility] HospitalOybfwsnHWLFLKVAUX4401-49-36 11:32:00 Test Item Value Reference Range Interpretation Comments Eosinophils # (test code 0.2 See_Comment [A utomated message] The = Eosinophils #) system Kaiam h generated this result tra nsmitted reference range : <=0.5. The reference r leo was not used to int erpret this result as normal/abnormal . [facility] HospitalApuptwaOAPCXXURZX7523-10-07 11:32:00 Test Item Value Reference Range Interpretation Comments Segs (test code = Segs) 50.7 45.0-75.0 [facility] HospitalTbctwcwHOGIBZKIJU3815-90-36 11:32:00 Test Item Value Reference Range Interpretation [...] iron deficiency anemia, and renal disease. CPT: 29716 [facility] HospitalMjeoseiCFTGSKZURX8955-77-95 11:32:00 Test Item Value Reference Range Interpretation Comments Hct (test code = Hct) 28.1 36.0-48.0 [facility] HospitalXlkjznpLQUPTZRWKE7534-55-46 11:32:00 Test Item Value Reference Range Interpretation Comments RBC (test code = RBC) 3.39 4.20-5.40 [facility] HospitalJcalgxdWCLIDOTYYX6944-34-46 11:32:00 Test Item Value Reference Range Interpretation Comments Hgb (test code = Hgb) 8.9 12.0-16.0 [facility] HospitalQxznsebLVOJQPFURL0870-73-20 11:32:00 Test Item Value Reference Range Interpretation Comments WBC (test code = WBC) 5.1 3.7-10.4 [facility] HospitalEykrjwoJGIJRQWBKE6067-36-92 11:32:00 Test Item Value Reference Range Interpretation Comments MPV (test code = MPV) 11.3 7.4-10.4 [facility] HospitalDbzbsksYYQTHIRKVD2585-71-93 11:32:00 Test Item Value Reference Range Interpretation Comments Platelet (test code = Platelet) 118 133-450 [facility] HospitalRamlvjyBQYCBEBXIQ7514-42-18 11:32:00 Test Item Value Reference Range Interpretation Comments MCHC (test code = MCHC) 31.8 32.0-36.0 [facility] HospitalCvnljtxVNTNZQBOWR8909-64-55 11:32:00 Test Item Value Reference Range Interpretation Comments RDW (test code = RDW) 18.0 11.5-14.5 [facility] HospitalViicsxyBNQRCSQXPD0926-91-47 11:32:00 Test Item Value Reference Range Interpretation Comments MCV (test code = MCV) 83.0 80.0-98.0 [facility] HospitalVoypvbfZUZHHOYWUK9964-48-83 11:32:00 Test Item Value Reference Range Interpretation Comments MCH (test code = MCH) 26.4 pg 27.0-31.0 [facility]UckolxpOMKRCEOIQC1062-03-79 11:32:00 Test Item Value Reference Range Interpretation Comments C3 Complement (test code = C3 137 96-201 Complement) [facility] CenterNlqsyubYNVXGFZBGO5879-65-41 11:32:00 Test Item Value Reference Range Interpretation Comments HIV. (test code = Negative *NA*(07/30/16 HIV.) 5:32 AM) [facility] HospitalWloivoqSMAMIUNEAV6999-54-33 11:05:00 Test Item Value Reference Range Interpretation [...] iron deficiency anemia, and renal disease. CPT: 08851 [facility] CenterPtpvyepFJFYSREHXO1579-11-23 11:05:00 Test Item Value Reference Range Interpretation Comments HIV. (test code = Negative *NA*(07/29/16 HIV.) 5:05 AM) [facility]inteUnmhbcuKODRJIZQCD5015-82-08 11:05:00 Test Item Value Reference Range Interpretation Comments C3 Complement (test code = C3 15 88-201 Complement) [facility]2017-02-07 15:50:00 Test Item Value Reference Range Interpretation Comments eGFR (test code = eGFR) 25 [facility]2017-02-07 15:50:00 Test Item Value Reference Range Interpretation Comments BUN (test code = BUN) 55 7-22 [facility]2017-02-07 15:50:00 Test Item Value Reference Range Interpretation Comments CO2 (test code = CO2) 23 24-32 [facility]2017-02-07 15:50:00 Test Item Value Reference Range Interpretation Comments Chloride Lvl (test code = Chloride Lvl) 109 95-109 [facility]2017-02-07 15:50:00 Test Item Value Reference Range Interpretation Comments Glucose Lvl (test code = Glucose Lvl) 101 70-99 [facility]2017-02-07 15:50:00 Test Item Value Reference Range Interpretation Comments Potassium Lvl (test code = Potassium 4.0 3.5-5.1 Lvl) [facility]2017-02-07 15:50:00 Test Item Value Reference Range Interpretation Comments Sodium Lvl (test code = Sodium Lvl) 141 135-145 [facility]2017-02-07 15:50:00 Test Item Value Reference Range Interpretation Comments AGAP (test code = AGAP) 13.0 10.0-20.0 [facility]2017-02-07 15:50:00 Test Item Value Reference Range Interpretation Comments Calcium Lvl (test code = Calcium Lvl) 7.7 8.5-10.5 [facility]2017-02-07 15:50:00 Test Item Value Reference Range Interpretation Comments Creatinine Lvl (test code = Creatinine 2.49 0.50-1.40 Lvl) [facility] HospitalNfeliijWSBMFEYGPN0894-32-95 15:50:00 Test Item Value Reference Range Interpretation Comments PT (test code = PT) 14.8 s 12.0-14.7 [facility] HospitalHgavmloXMOBQEUZCM7292-41-71 15:50:00 Test Item Value Reference Range Interpretation Comments PTT (test code = PTT) 40.8 s 22.9-35.8 [facility] HospitalJppqzxvGGVGRYKUPA5701-64-09 15:50:00 Test Item Value Reference Range Interpretation Comments INR (test code = INR) 1.14 0.85-1.17 [facility]inteBqdzzrxXIYEEHFATJ0552-75-64 15:50:00 Test Item Value Reference Range Interpretation Comments C3 Complement (test code = C3 94 88-201 Complement) [facility] HospitalDldyiutGTIMRGOWSZ1376-21-23 10:35:00 Test Item Value Reference Range Interpretation Comments Lymphocytes # (test code = Lymphocytes 1.7 1.0-5.5 #) [facility] HospitalObvvmeyMFDKBRNHYG8626-16-28 10:35:00 Test Item Value Reference Range Interpretation Comments Segs-Bands # (test code = Segs-Bands #) 2.7 1.5-8.1 [facility] HospitalWuwuubcWMKJLWXTYV5603-00-99 10:35:00 Test Item Value Reference Range Interpretation Comments Eosinophils # (test code 0.1 See_Comment [A utomated message] The = Eosinophils #) system whic h generated this result tra nsmitted reference range : <=0.5. The reference r leo was not used to int erpret this result as normal/abnormal . [facility] HospitalMqvrzidMLVOXHCVSX0791-63-54 10:35:00 Test Item Value Reference Range Interpretation Comments Monocytes # (test code 0.7 See_Comment [Aut omated message] The = Monocytes #) system which generated this result tra nsmitted reference range : <=0.8. The reference r leo was not used to int erpret this result as normal/abnormal . [facility] HospitalYtvsocvKAJVUVQIIK0903-74-66 10:35:00 Test Item Value Reference Range Interpretation Comments Segs (test code = Segs) 51.3 45.0-75.0 [facility] HospitalXxjfmsrYNXDSEZXPO0901-32-47 10:35:00 Test Item Value Reference Range Interpretation Comments Lymphocytes (test code = Lymphocytes) 31.6 20.0-40.0 [facility] HospitalIivulewLRFNHQWVLZ8244-67-46 10:35:00 Test Item Value Reference Range Interpretation Comments Monocytes (test code = Monocytes) 14.1 2.0-12.0 [facility] HospitalSbixokxAPFUEKFHLU1361-04-36 10:35:00 Test Item Value Reference Range Interpretation Comments Eosinophils (test code = 2.6 See_Comment [A utomated message] The Eosinophils) system which ge nerated this result tra nsmitted reference range : <=4.0. The reference r leo was not used to int erpret this result as normal/abnormal . [facility] HospitalWuccopmHVPYXYBHVS6743-22-32 10:35:00 Test Item Value Reference Range Interpretation Comments Basophils (test code = 0.4 See_Comment [Aut omated message] The Basophils) system which ge nerated this result tra nsmitted reference range : <=1.0. The reference r leo was not used to int erpret this result as normal/abnormal . [facility] HospitalFqqhlcsXSBKOPCWLT5177-49-34 10:35:00 Test Item Value Reference Range Interpretation Comments PB Smear Path Peripheral blood smear shows (test code = PB hypochromic normocytic Smear Path) anemia with anisopoikilocytsosis, no increase in schistocytes, slight polychromasia, a few estella cells, moderate thrombocytopenia. Impression: (1) no evidence of microangiopathic hemolysis, (2) RBC morphology is suggestive of anemia of chronic disease or iron deficiency anemia, and renal disease. CPT: 98796 [facility] HospitalFosexynFYFKPRPCSK6422-67-55 10:35:00 Test Item Value Reference Range Interpretation Comments Hct (test code = Hct) 29.3 36.0-48.0 [facility] HospitalVwoyyfnAODYWLYYAX1960-10-88 10:35:00 Test Item Value Reference Range Interpretation Comments Hgb (test code = Hgb) 9.2 12.0-16.0 [facility] HospitalKdnzemtIYEPZJNLDE0673-23-30 10:35:00 Test Item Value Reference Range Interpretation Comments RBC (test code = RBC) 3.54 4.20-5.40 [facility] HospitalRsohvbeYTKGEXGVLP4701-54-67 10:35:00 Test Item Value Reference Range Interpretation Comments WBC (test code = WBC) 5.3 3.7-10.4 [facility] HospitalFjlmjwhSKPBQQPCKW3138-28-46 10:35:00 Test Item Value Reference Range Interpretation Comments Platelet (test code = Platelet) 87 133-450 [facility] HospitalPqevwtjYQZOHDNRSK4778-60-91 10:35:00 Test Item Value Reference Range Interpretation Comments MCHC (test code = MCHC) 31.4 32.0-36.0 [facility] HospitalTwewlnqBJURBNJWKJ5663-66-57 10:35:00 Test Item Value Reference Range Interpretation Comments RDW (test code = RDW) 17.9 11.5-14.5 [facility] HospitalLpclzsgMIUERTNQXM5976-90-13 10:35:00 Test Item Value Reference Range Interpretation Comments MPV (test code = MPV) 10.9 7.4-10.4 [facility] HospitalGrhulfqHFHNELFFLW8299-48-33 10:35:00 Test Item Value Reference Range Interpretation Comments MCH (test code = MCH) 26.0 pg 27.0-31.0 [facility] PointeNlkpichWLPYBZORQN9841-85-94 10:35:00 Test Item Value Reference Range Interpretation Comments MCV (test code = MCV) 82.8 80.0-98.0 [facility] PointeQupcogvPPLFAYLHEK9326-63-34 10:35:00 Test Item Value Reference Range Interpretation Comments HIV. (test code = Negative *NA*(07/28/16 HIV.) 4:35 AM) [facility]inteCARDIAC OKXWFGB2252-81-13 10:22:00 Test Item Value Reference Range Interpretation Comments Total CK (test code = Total CK) 190 12-191 [facility] JWMDW3129-17-31 10:22:00 Test Item Value Reference Range Interpretation Comments Calcium Lvl (test code = Calcium Lvl) 7.8 8.5-10.5 [facility]2017-02-06 10:22:00 Test Item Value Reference Range Interpretation Comments CO2 (test code = CO2) 21 24-32 [facility]2017-02-06 10:22:00 Test Item Value Reference Range Interpretation Comments Sodium Lvl (test code = Sodium Lvl) 140 135-145 [facility] HeightsExRo TechnologiesSWAIN COMMUNITY HOSPITALUMCIS2937-50-47 10:22:00 Test Item Value Reference Range Interpretation Comments Potassium Lvl (test code = Potassium 3.8 3.5-5.1 Lvl) [facility] HeightsExRo TechnologiesSWAIN COMMUNITY HOSPITALMFYJX0859-52-24 10:22:00 Test Item Value Reference Range Interpretation Comments Chloride Lvl (test code = Chloride Lvl) 106 95-109 [facility]2017-02-06 10:22:00 Test Item Value Reference Range Interpretation Comments Bili Total (test code = Bili Total) 0.4 0.2-1.3 [facility] HeightsWukong.com MTFFX8049-51-37 10:22:00 Test Item Value Reference Range Interpretation Comments Alk Phos (test code = Alk Phos) 74 39-136 [facility]2017-02-06 10:22:00 Test Item Value Reference Range Interpretation Comments eGFR (test code = eGFR) 19 [facility]2017-02-06 10:22:00 Test Item Value Reference Range Interpretation Comments Total Protein (test code = Total 5.2 6.4-8.4 Protein) [facility]2017-02-06 10:22:00 Test Item Value Reference Range Interpretation Comments ALT (test code = ALT) 822 See_Comment [Auto mated message] The system which ge nerated this result transmit rohit reference range : <=65. The reference range was not used to interpr et this result as reji l/abnormal. [facility]2017-02-06 10:22:00 Test Item Value Reference Range Interpretation Comments AST (test code = AST) 205 See_Comment [Auto mated message] The system which ge nerated this result transmit rohit reference range : <=37. The reference range was not used to interpr et this result as reji l/abnormal. [facility]2017-02-06 10:22:00 Test Item Value Reference Range Interpretation Comments Albumin Lvl (test code = Albumin Lvl) 1.8 3.5-5.0 [facility]2017-02-06 10:22:00 Test Item Value Reference Range Interpretation Comments BUN (test code = BUN) 54 7-22 [facility]2017-02-06 10:22:00 Test Item Value Reference Range Interpretation Comments Glucose Lvl (test code = Glucose Lvl) 143 70-99 [facility]2017-02-06 10:22:00 Test Item Value Reference Range Interpretation Comments Creatinine Lvl (test code = Creatinine 3.11 0.50-1.40 Lvl) [facility]2017-02-06 10:22:00 Test Item Value Reference Range Interpretation Comments B/C Ratio (test code = B/C Ratio) 17 6-25 [facility]2017-02-06 10:22:00 Test Item Value Reference Range Interpretation Comments AGAP (test code = AGAP) 16.8 10.0-20.0 [facility]2017-02-06 10:22:00 Test Item Value Reference Range Interpretation Comments Globulin (test code = Globulin) 3.4 2.7-4.2 [facility]2017-02-06 10:22:00 Test Item Value Reference Range Interpretation Comments A/G Ratio (test code = A/G Ratio) 0.5 0.7-1.6 [place] 317337-02-06 10:22:00 Test Item Value Reference Range Interpretation Comments Magnesium Lvl (test code = Magnesium 2.0 1.8-2.4 Lvl) [facility]2017-02-06 10:22:00 Test Item Value Reference Range Interpretation Comments Phosphorus (test code = Phosphorus) 3.7 2.5-4.5 [facility] HospitalLpwfckiGLCKMHYNCU0962-81-36 10:22:00 Test Item Value Reference Range Interpretation Comments RDW (test code = RDW) 17.7 11.5-14.5 [facility]OohsdjfYUIDVPTLQG7983-66-01 10:22:00 Test Item Value Reference Range Interpretation Comments MCHC (test code = MCHC) 32.9 32.0-36.0 [facility] HospitalSwyooseIWEQSJWGFQ6184-27-46 10:22:00 Test Item Value Reference Range Interpretation Comments Hct (test code = Hct) 25.4 36.0-48.0 [facility] HospitalMjlqqncJBWZFOETYS8461-78-64 10:22:00 Test Item Value Reference Range Interpretation Comments MCH (test code = MCH) 26.4 pg 27.0-31.0 [facility] HospitalKfprejaKWCAFHBFLR2525-39-62 10:22:00 Test Item Value Reference Range Interpretation Comments MCV (test code = MCV) 80.3 80.0-98.0 [facility] HospitalLnjztdeEQBETDTWPK2251-20-40 10:22:00 Test Item Value Reference Range Interpretation Comments MPV (test code = MPV) 11.4 7.4-10.4 [facility] HospitalVnpcoldKEIXEQXWLK8070-13-84 10:22:00 Test Item Value Reference Range Interpretation Comments Platelet (test code = Platelet) 74 133-450 [facility] HospitalPprmwtkZBGUUDIFWY8538-02-85 10:22:00 Test Item Value Reference Range Interpretation Comments RBC (test code = RBC) 3.16 4.20-5.40 [facility] HospitalNvguvirAOQDMYRGEF9990-49-66 10:22:00 Test Item Value Reference Range Interpretation Comments WBC (test code = WBC) 5.3 3.7-10.4 [facility] HospitalLnrjvtoUKSMSGDJIR7257-20-38 10:22:00 Test Item Value Reference Range Interpretation Comments Hgb (test code = Hgb) 8.4 12.0-16.0 [facility] HospitalJcjoieeDMCGEXJOCN6513-19-04 10:22:00 Test Item Value Reference Range Interpretation Comments Monocytes (test code = Monocytes) 14.5 2.0-12.0 [facility] HospitalKiwtunzAZJNLTEFON8898-95-08 10:22:00 Test Item Value Reference Range Interpretation Comments Lymphocytes (test code = Lymphocytes) 29.8 20.0-40.0 [facility] HospitalVsydsklHHZYMHKIHM3846-78-19 10:22:00 Test Item Value Reference Range Interpretation Comments Eosinophils # (test code 0.1 See_Comment [A utomated message] The = Eosinophils #) system wh h generated this result tra nsmitted reference range : <=0.5. The reference r leo was not used to int erpret this result as normal/abnormal . [facility] HospitalGnwfuavKRXAHWYSFM4191-86-48 10:22:00 Test Item Value Reference Range Interpretation Comments Monocytes # (test code 0.8 See_Comment [Aut omated message] The = Monocytes #) system which generated this result tra nsmitted reference range : <=0.8. The reference r leo was not used to int erpret this result as normal/abnormal . [facility] HospitalWlkktwqZMAUFEOLNV4608-73-83 10:22:00 Test Item Value Reference Range Interpretation Comments Segs-Bands # (test code = Segs-Bands #) 2.9 1.5-8.1 [facility] HospitalPzuylmzIRUCBGXTFQ1719-16-62 10:22:00 Test Item Value Reference Range Interpretation Comments Lymphocytes # (test code = Lymphocytes 1.6 1.0-5.5 #) [facility] HospitalGvsbckuNOGELWWFWT4203-33-15 10:22:00 Test Item Value Reference Range Interpretation Comments Basophils (test code = 0.4 See_Comment [Aut omated message] The Basophils) system which ge nerated this result tra nsmitted reference range : <=1.0. The reference r leo was not used to int erpret this result as normal/abnormal . [facility] HospitalTtrcytzEIPSXLCOOU7931-61-35 10:22:00 Test Item Value Reference Range Interpretation Comments Eosinophils (test code = 1.2 See_Comment [A utomated message] The Eosinophils) system which ge nerated this result tra nsmitted reference range : <=4.0. The reference r leo was not used to int erpret this result as normal/abnormal . [facility] HospitalTdtjfieMDFYDWRVRT4572-72-00 10:22:00 Test Item Value Reference Range Interpretation Comments Segs (test code = Segs) 54.1 45.0-75.0 [facility]SPE[facility] ENPFKWXXZ4755-01-25 10:22:00 Test Item Value Reference Range Interpretation Comments Hgb A1C (test code = Hgb A1C) 8.9 [facility]annCARDIAC [id number] 17:40:00 Test Item Value Reference Range Interpretation Comments Total CK (test code = Total CK) 344 12-191 [facility] SgllkfbVGMPLLPUDY6566-21-24 17:40:00 Test Item Value Reference Range Interpretation Comments IVETTE (test code = IVETTE) Positive *ABN*(07/26/16 11:40 AM) [facility] JtvivrcCYBUHIMZXF4888-30-88 17:40:00 Test Item Value Reference Range Interpretation Comments 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 [facility] XvqadapIGEVVCEDHU7178-23-64 17:40:00 Test Item Value Reference Range Interpretation Comments SS-B (La) Ab (test code = SS-B (La) Ab) no gt [facility] XejnbxmJWEIMRRVBV2982-39-21 17:40:00 Test Item Value Reference Range Interpretation Comments SS-A (Ro) Ab (test code = SS-A (Ro) Ab) no gt [facility] ErmljipXFJFZPCTPW2915-52-86 17:40:00 Test Item Value Reference Range Interpretation Comments DNA Ab (DS) (test Negative (07/26/16 11:40 code = DNA Ab (DS)) AM) [facility] UatztfgVEOWGEPWHI4780-95-77 17:40:00 Test Item Value Reference Range Interpretation Comments IVETTE Titer (test code = 1:40 *ABN*(07/26/16 IVETTE Titer) 11:40 AM) [facility] [id number] 17:40:00 Test Item Value Reference Range Interpretation Comments U Sodium (test code = U Sodium) 21 [facility] HeightsWthgbnzAOSGMRJBUL7360-07-32 14:00:00 Test Item Value Reference Range Interpretation Comments INR (test code = INR) 1.11 0.85-1.17 [facility]PmesqafBOWOEKTSBV9166-32-85 14:00:00 Test Item Value Reference Range Interpretation Comments PT (test code = PT) 14.5 s 12.0-14.7 [facility] PointeQbilkeiZXYBMFDPGK5197-33-26 14:00:00 Test Item Value Reference Range Interpretation Comments Hep A IgM (test code Negative *NA*(07/26/16 = Hep A IgM) 8:00 AM) [facility]inteSgyybkoZNPINJONXL8094-42-88 14:00:00 Test Item Value Reference Range Interpretation Comments Hep B Core IgM (test Negative *NA*(07/26/16 code = Hep B Core 8:00 AM) IgM) [facility] PointeRcnowrcSXXIMRLDKV8916-17-49 14:00:00 Test Item Value Reference Range Interpretation Comments Hep C Ab (test code = Negative *NA*(07/26/16 Hep C Ab) 8:00 AM) [facility] PointeVssoqcuPAPTDKWOIB6491-17-45 14:00:00 Test Item Value Reference Range Interpretation Comments Hep Bs Ag (test code Negative *NA*(07/26/16 = Hep Bs Ag) 8:00 AM) [facility]2017-02-05 10:42:00 Test Item Value Reference Range Interpretation Comments B/C Ratio (test code = B/C Ratio) 17 6-25 [facility]2017-02-05 10:42:00 Test Item Value Reference Range Interpretation Comments ALT (test code = ALT) 1232 See_Comment [Auto mated message] The system which ge nerated this result transmit rohit reference range : <=65. The reference range was not used to interpr et this result as reji l/abnormal. [facility]2017-02-05 10:42:00 Test Item Value Reference Range Interpretation Comments A/G Ratio (test code = A/G Ratio) 0.5 0.7-1.6 [facility]2017-02-05 10:42:00 Test Item Value Reference Range Interpretation Comments Bili Total (test code = Bili Total) 0.3 0.2-1.3 [facility]2017-02-05 10:42:00 Test Item Value Reference Range Interpretation Comments Alk Phos (test code = Alk Phos) 79 39-136 [facility]2017-02-05 10:42:00 Test Item Value Reference Range Interpretation Comments AST (test code = AST) 586 See_Comment [Auto mated message] The system which ge nerated this result transmit rohit reference range : <=37. The reference range was not used to interpr et this result as reji l/abnormal. [facility]2017-02-05 10:42:00 Test Item Value Reference Range Interpretation Comments Total Protein (test code = Total 5.5 6.4-8.4 Protein) [facility]2017-02-05 10:42:00 Test Item Value Reference Range Interpretation Comments Globulin (test code = Globulin) 3.7 2.7-4.2 [facility]2017-02-05 10:42:00 Test Item Value Reference Range Interpretation Comments Albumin Lvl (test code = Albumin Lvl) 1.8 3.5-5.0 [facility]2017-02-05 10:42:00 Test Item Value Reference Range Interpretation Comments Magnesium Lvl (test code = Magnesium 2.1 1.8-2.4 Lvl) [facility] HospitalTmmpymuZMBRULZKFO9367-43-71 10:42:00 Test Item Value Reference Range Interpretation Comments Acanthocyte (test code = Acanthocyte) Slight [facility] HospitalEzjtilcKRJVXBERFT2295-80-68 10:42:00 Test Item Value Reference Range Interpretation Comments Rouleaux (test code = Present *ABN*(07/26/16 Rouleaux) 4:42 AM) [facility] HospitalWxjqimxGUWGVAWITC1051-02-77 10:42:00 Test Item Value Reference Range Interpretation Comments Anisocyte (test code = 1+ *ABN*(07/26/16 4:42 Anisocyte) AM) [facility] HospitalEeteyjrZTZIORUWHP3125-32-02 10:42:00 Test Item Value Reference Range Interpretation Comments Basophils # (test code 0.1 See_Comment [Aut omated message] The = Basophils #) system which generated this result tra nsmitted reference range : <=0.2. The reference r leo was not used to int erpret this result as normal/abnormal . [facility] HospitalUbsuvczMJLROHOGLK3280-65-97 10:42:00 Test Item Value Reference Range Interpretation Comments Large Plt (test code Moderate *ABN*(07/26/16 = Large Plt) 4:42 AM) [facility]inteGlkqcuvAFLMQCJLTP6577-05-17 10:42:00 Test Item Value Reference Range Interpretation Comments C4 Complement (test code = C4 42 16-47 Complement) [facility] AND [id number] 16:34:00 Test Item Value Reference Range Interpretation Comments UA Sq Epi (test code = UA Sq Epi) None Seen [facility] AND [id number] 16:34:00 Test Item Value Reference Range Interpretation Comments UA Waxy Cast (test code = UA Waxy Cast) 1 [facility] AND [id number] 16:34:00 Test Item Value Reference Range Interpretation Comments UA Hyal Cast (test 4 See_Comment [Automat ed message] The code = UA Hyal Cast) system which generated this result transmit rohit reference range : <=2. The reference range was not used to interpr et this result as reji l/abnormal. [facility] AND [id number] 16:34:00 Test Item Value Reference Range Interpretation Comments UA Bacteria (test code = UA Occasional /HPF Bacteria) [facility] AND [id number] 16:34:00 Test Item Value Reference Range Interpretation Comments UA Mucus (test code = UA Mucus) Few /LPF [facility] AND [id number] 16:34:00 Test Item Value Reference Range Interpretation Comments UA Amorph Destiny (test code = Occasional /HPF UA Amorph Destiny) [facility] AND [id number] 16:34:00 Test Item Value Reference Range Interpretation Comments UA Leuk Est (test Negative (07/25/16 10:34 code = UA Leuk Est) AM) [facility] AND [id number] 16:34:00 Test Item Value Reference Range Interpretation Comments UA Nitrite (test code Negative (07/25/16 10:34 = UA Nitrite) AM) [facility] AND [id number] 16:34:00 Test Item Value Reference Range Interpretation Comments UA RBC (test code = 2 See_Comment [Automa rohit message] The UA RBC) system which ge nerated this result transmit rohit reference range : <=2. The reference range was not used to interpr et this result as reji l/abnormal. [facility] AND [id number] 16:34:00 Test Item Value Reference Range Interpretation Comments UA WBC (test code = 6 See_Comment [Automa rohit message] The UA WBC) system which ge nerated this result transmit rohit reference range : <=5. The reference range was not used to interpr et this result as reji l/abnormal. [facility] AND [id number] 16:34:00 Test Item Value Reference Range Interpretation Comments UA Urobilinogen (test code = UA 2.0 0.1-1.0 Urobilinogen) [facility] AND [id number] 16:34:00 Test Item Value Reference Range Interpretation Comments UA Ketones (test code = UA Negative mg/dL Ketones) [facility] AND [id number] 16:34:00 Test Item Value Reference Range Interpretation Comments UA Glucose (test code = UA Glucose) 70 mg/dL [facility] AND [id number] 16:34:00 Test Item Value Reference Range Interpretation Comments UA Blood (test code = Negative (07/25/16 10:34 UA Blood) AM) [facility] AND [id number] 16:34:00 Test Item Value Reference Range Interpretation Comments UA Bili (test code = Negative *NA*(07/25/16 UA Bili) 10:34 AM) [facility] AND [id number] 16:34:00 Test Item Value Reference Range Interpretation Comments UA Protein (test code = UA >=300 mg/dL Protein) [facility] AND [id number] 16:34:00 Test Item Value Reference Range Interpretation Comments UA Spec Grav (test code = UA Spec Grav) 1.012 [facility] AND [id number] 16:34:00 Test Item Value Reference Range Interpretation Comments UA pH (test code = UA pH) 5.5 5.0-8.0 [facility] AND [id number] 16:34:00 Test Item Value Reference Range Interpretation Comments UA Turbidity (test code Slight *ABN*(07/25/16 = UA Turbidity) 10:34 AM) [facility] AND [id number] 16:34:00 Test Item Value Reference Range Interpretation Comments UA Color (test code = Dark Yellow *NA*(07/25/16 UA Color) 10:34 AM) [facility] AND [id number] 16:34:00 Test Item Value Reference Range Interpretation Comments UA Gran Cast (test code = UA Gran Cast) 9 [facility] [id number] 16:34:00 Test Item Value Reference Range Interpretation Comments U Sodium (test code = U Sodium) 30 [facility] [id number] 16:34:00 Test Item Value Reference Range Interpretation Comments U Prot/Creat (test code = U Prot/Creat) 3.1 [facility] [id number] 16:34:00 Test Item Value Reference Range Interpretation Comments U Protein (test code = U Protein) 420.9 [facility] [id number] 16:34:00 Test Item Value Reference Range Interpretation Comments U Creatinine (test code = U 136.00 Creatinine) [facility] [employer] [id number] 08:55:00 Test Item Value Reference Range Interpretation Comments Magnesium Lvl (test code = Magnesium 2.0 1.8-2.4 Lvl) [facility] [employer] [id number] 08:55:00 Test Item Value Reference Range Interpretation Comments Phosphorus (test code = Phosphorus) 5.2 2.5-4.5 [facility] [employer]2017-02-03 17:29:00 Test Item Value Reference Range Interpretation Comments Troponin-I (test code 0.28 See_Comment [Auto mated message] The = Troponin-I) system which g enerated this result transmit rohit reference range : <=0.40. The reference r leo was not used to interpr et this result as reji l/abnormal. [facility] [employer] [id number] 17:29:00 Test Item Value Reference Range Interpretation Comments Total CK (test code = Total CK) 2616 12-191 [facility] [employer] [id number] 17:29:00 Test Item Value Reference Range Interpretation Comments Troponin-T (test code 0.144 See_Comment [Auto mated message] The = Troponin-T) system which g enerated this result transmit rohit reference range : <=0.100. The reference r leo was not used to interpr et this result as reji l/abnormal. [facility] [employer] [id number] 17:29:00 Test Item Value Reference Range Interpretation Comments CK MB Index (test 0.2 See_Comment [Automate d message] The code = CK MB Index) system w [employer] generated this result transmit rohit reference range : <=2.5. The reference range was not used to interpr et this result as reji l/abnormal. [facility] [employer] [id number] 17:29:00 Test Item Value Reference Range Interpretation Comments CK MB (test code = CK MB) 6.3 0.5-3.6 [facility] [employer] [id number] 11:20:00 Test Item Value Reference Range Interpretation Comments Troponin-I (test code 0.38 See_Comment [Auto mated message] The = Troponin-I) system which g enerated this result transmit rohit reference range : <=0.40. The reference r leo was not used to interpr et this result as reji l/abnormal. [facility] [employer]2017-02-03 11:20:00 Test Item Value Reference Range Interpretation Comments Troponin-T (test code 0.173 See_Comment [Auto mated message] The = Troponin-T) system which g enerated this result transmit rohit reference range : <=0.100. The reference r leo was not used to interpr et this result as reji l/abnormal. [facility] [employer]2017-02-03 11:20:00 Test Item Value Reference Range Interpretation Comments CK MB Index (test 0.2 See_Comment [Automate d message] The code = CK MB Index) system w [employer] generated this result transmit rohit reference range : <=2.5. The reference range was not used to interpr et this result as reji l/abnormal. [facility] [employer]2017-02-03 11:20:00 Test Item Value Reference Range Interpretation Comments CK MB (test code = CK MB) 5.6 0.5-3.6 [facility] [employer] [id number] 11:20:00 Test Item Value Reference Range Interpretation Comments Phosphorus (test code = Phosphorus) 5.5 2.5-4.5 [facility] [employer] [id number] 06:18:00 Test Item Value Reference Range Interpretation Comments BNP (test code = BNP) 701 [facility] [employer] [id number] 04:59:27 Test Item Value Reference Range Interpretation Comments Troponin-I (test code 0.57 See_Comment [Auto mated message] The = Troponin-I) system which g enerated this result transmit rohit reference range : <=0.40. The reference r leo was not used to interpr et this result as reji l/abnormal. [facility]inte[facility]ARD[facility] [id number] 10:22:00 Test Item Value Reference Range Interpretation Comments BNP (test code = BNP) 526 [facility] [id number] 10:22:00 Test Item Value Reference Range Interpretation Comments Magnesium Lvl (test code = Magnesium 2.1 1.8-2.4 Lvl) [facility]2016-12-26 10:22:00 Test Item Value Reference Range Interpretation Comments Glucose Lvl (test code = Glucose Lvl) 117 70-99 [facility]2016-12-26 10:22:00 Test Item Value Reference Range Interpretation Comments BUN (test code = BUN) 41 7-22 [facility]2016-12-26 10:22:00 Test Item Value Reference Range Interpretation Comments Creatinine Lvl (test code = Creatinine 2.00 0.50-1.40 Lvl) [facility]2016-12-26 10:22:00 Test Item Value Reference Range Interpretation Comments Calcium Lvl (test code = Calcium Lvl) 9.0 8.5-10.5 [facility]2016-12-26 10:22:00 Test Item Value Reference Range Interpretation Comments Chloride Lvl (test code = Chloride Lvl) 102 95-109 [facility]2016-12-26 10:22:00 Test Item Value Reference Range Interpretation Comments CO2 (test code = CO2) 33 24-32 [facility]2016-12-26 10:22:00 Test Item Value Reference Range Interpretation Comments Sodium Lvl (test code = Sodium Lvl) 144 135-145 [facility]2016-12-26 10:22:00 Test Item Value Reference Range Interpretation Comments Potassium Lvl (test code = Potassium 4.0 3.5-5.1 Lvl) [facility]2016-12-26 10:22:00 Test Item Value Reference Range Interpretation Comments eGFR (test code = eGFR) 32 [facility]2016-12-26 10:22:00 Test Item Value Reference Range Interpretation Comments AGAP (test code = AGAP) 13.0 10.0-20.0 [facility]2016-12-26 10:22:00 Test Item Value Reference Range Interpretation Comments Phosphorus (test code = Phosphorus) 4.6 2.5-4.5 [facility] H[id number] 10:22:00 Test Item Value Reference Range Interpretation Comments RBC (test code = RBC) 3.68 4.20-5.40 [facility] HospitalGztgullBUASSBJVWJ4613-05-67 10:22:00 Test Item Value Reference Range Interpretation Comments Hgb (test code = Hgb) 9.9 12.0-16.0 [facility] HospitalTxgsnarYZPJFMHYNO2457-83-53 10:22:00 Test Item Value Reference Range Interpretation Comments MCH (test code = MCH) 26.8 pg 27.0-31.0 [facility] HospitalCyrexwuTCLHABCGYY9683-91-58 10:22:00 Test Item Value Reference Range Interpretation Comments MCHC (test code = MCHC) 34.2 32.0-36.0 [facility] HospitalWfwwvfzSFTBZKBCMK5245-84-22 10:22:00 Test Item Value Reference Range Interpretation Comments MCV (test code = MCV) 78.3 80.0-98.0 [facility] HospitalDrwvdjbJHJFUBZYVR7198-10-10 10:22:00 Test Item Value Reference Range Interpretation Comments Hct (test code = Hct) 28.8 36.0-48.0 [facility] HospitalDoobffoZAQKSZGPJM3709-37-78 10:22:00 Test Item Value Reference Range Interpretation Comments Platelet (test code = Platelet) 191 133-450 [facility] HospitalQlrkawpQPWAZNKTBV0580-99-39 10:22:00 Test Item Value Reference Range Interpretation Comments MPV (test code = MPV) 9.5 7.4-10.4 [facility] HospitalFreoblsFKAXUIPMRX6283-18-26 10:22:00 Test Item Value Reference Range Interpretation Comments RDW (test code = RDW) 15.3 11.5-14.5 [facility] HospitalKvrolaaJJCWCKGRYR4696-43-80 10:22:00 Test Item Value Reference Range Interpretation Comments WBC (test code = WBC) 5.6 3.7-10.4 [facility] HospitalWceddbiMWGGOTACZZ7684-47-92 10:22:00 Test Item Value Reference Range Interpretation Comments Eosinophils # (test code 0.5 See_Comment [A utomated message] The = Eosinophils #) system whic h generated this result tra nsmitted reference range : <=0.5. The reference r leo was not used to int erpret this result as normal/abnormal . [facility] HospitalSuecigmCXAZVFNORX6302-87-43 10:22:00 Test Item Value Reference Range Interpretation Comments Microcyte (test code = 1+ *ABN*(06/15/16 Microcyte) 4:22 AM) [facility] HospitalCwitdllFQDIETWUAV6530-52-72 10:22:00 Test Item Value Reference Range Interpretation Comments Basophils # (test code 0.1 See_Comment [Aut omated message] The = Basophils #) system which generated this result tra nsmitted reference range : <=0.2. The reference r leo was not used to int erpret this result as normal/abnormal . [facility] HospitalFbrgdzsMDGCQIGRJP6070-27-96 10:22:00 Test Item Value Reference Range Interpretation Comments Lymphocytes (test code = Lymphocytes) 33.5 20.0-40.0 [facility] HospitalLbzpdpdFCXFZYDNLQ8302-54-10 10:22:00 Test Item Value Reference Range Interpretation Comments Segs (test code = Segs) 47.6 45.0-75.0 [facility] HospitalPxhfshaDRKCSPGSRE6962-31-39 10:22:00 Test Item Value Reference Range Interpretation Comments Monocytes (test code = Monocytes) 8.4 2.0-12.0 [facility] HospitalRdadbmhUESJZHMTOO1867-58-53 10:22:00 Test Item Value Reference Range Interpretation Comments Eosinophils (test code = 9.4 See_Comment [A utomated message] The Eosinophils) system which ge nerated this result tra nsmitted reference range : <=4.0. The reference r leo was not used to int erpret this result as normal/abnormal . [facility]ZltfcbyCFJONBCKAR4347-98-63 10:22:00 Test Item Value Reference Range Interpretation Comments Segs-Bands # (test code = Segs-Bands #) 2.6 1.5-8.1 [facility] HospitalRnvxxstGREREQFLAM5457-49-19 10:22:00 Test Item Value Reference Range Interpretation Comments Lymphocytes # (test code = Lymphocytes 1.9 1.0-5.5 #) [facility] HospitalLluntgmCGXNQKMULK9028-59-60 10:22:00 Test Item Value Reference Range Interpretation Comments Basophils (test code = 1.1 See_Comment [Aut omated message] The Basophils) system which ge nerated this result tra nsmitted reference range : <=1.0. The reference r leo was not used to int erpret this result as normal/abnormal . [facility] HospitalNfxfmpdNGDYBWSJEF7661-97-23 10:22:00 Test Item Value Reference Range Interpretation Comments Monocytes # (test code 0.5 See_Comment [Aut omated message] The = Monocytes #) system which generated this result tra nsmitted reference range : <=0.8. The reference r leo was not used to int erpret this result as normal/abnormal . [facility]2016-12-25 11:03:00 Test Item Value Reference Range Interpretation Comments Phosphorus (test code = Phosphorus) 4.8 2.5-4.5 [facility]2016-12-25 11:03:00 Test Item Value Reference Range Interpretation Comments Magnesium Lvl (test code = Magnesium 2.0 1.8-2.4 Lvl) [facility]2016-12-25 11:03:00 Test Item Value Reference Range Interpretation Comments eGFR (test code = eGFR) 32 [facility]2016-12-25 11:03:00 Test Item Value Reference Range Interpretation Comments Chloride Lvl (test code = Chloride Lvl) 101 95-109 [facility]2016-12-25 11:03:00 Test Item Value Reference Range Interpretation Comments Potassium Lvl (test code = Potassium 4.4 3.5-5.1 Lvl) [facility]2016-12-25 11:03:00 Test Item Value Reference Range Interpretation Comments BUN (test code = BUN) 37 7-22 [facility]2016-12-25 11:03:00 Test Item Value Reference Range Interpretation Comments Glucose Lvl (test code = Glucose Lvl) 119 70-99 [facility]2016-12-25 11:03:00 Test Item Value Reference Range Interpretation Comments Creatinine Lvl (test code = Creatinine 2.00 0.50-1.40 Lvl) [facility]2016-12-25 11:03:00 Test Item Value Reference Range Interpretation Comments Sodium Lvl (test code = Sodium Lvl) 142 135-145 [facility]2016-12-25 11:03:00 Test Item Value Reference Range Interpretation Comments Calcium Lvl (test code = Calcium Lvl) 8.7 8.5-10.5 [facility]2016-12-25 11:03:00 Test Item Value Reference Range Interpretation Comments CO2 (test code = CO2) 32 24-32 [facility]2016-12-25 11:03:00 Test Item Value Reference Range Interpretation Comments AGAP (test code = AGAP) 13.4 10.0-20.0 [facility] HospitalPjrmpzhYZVRDVFUNU6476-57-40 11:03:00 Test Item Value Reference Range Interpretation Comments Eosinophils (test code = 10.3 See_Comment [A utomated message] The Eosinophils) system which ge nerated this result tra nsmitted reference range : <=4.0. The reference r leo was not used to int erpret this result as normal/abnormal . [facility] HospitalMcpukrlSCOBAEUMPJ8657-13-55 11:03:00 Test Item Value Reference Range Interpretation Comments Basophils # (test code 0.1 See_Comment [Aut omated message] The = Basophils #) system which generated this result tra nsmitted reference range : <=0.2. The reference r leo was not used to int erpret this result as normal/abnormal . [facility] HospitalXuqbpelLWJLFENPIJ7750-53-99 11:03:00 Test Item Value Reference Range Interpretation Comments Eosinophils # (test code 0.5 See_Comment [A utomated message] The = Eosinophils #) system whic h generated this result tra nsmitted reference range : <=0.5. The reference r leo was not used to int erpret this result as normal/abnormal . [facility] HospitalTrdpksyYQLYMQBAVF0978-71-26 11:03:00 Test Item Value Reference Range Interpretation Comments Monocytes # (test code 0.5 See_Comment [Aut omated message] The = Monocytes #) system which generated this result tra nsmitted reference range : <=0.8. The reference r leo was not used to int erpret this result as normal/abnormal . [facility] HospitalVfxvqngCMICPIJDIU3636-50-87 11:03:00 Test Item Value Reference Range Interpretation Comments Segs-Bands # (test code = Segs-Bands #) 2.1 1.5-8.1 [facility] HospitalIvkmrroDMXGBTRYIN7323-63-80 11:03:00 Test Item Value Reference Range Interpretation Comments Basophils (test code = 1.2 See_Comment [Aut omated message] The Basophils) system which ge nerated this result tra nsmitted reference range : <=1.0. The reference r leo was not used to int erpret this result as normal/abnormal . [facility] HospitalJpvoxnpESJEOPKZZI3762-82-15 11:03:00 Test Item Value Reference Range Interpretation Comments Lymphocytes # (test code = Lymphocytes 1.9 1.0-5.5 #) [facility] HospitalNpoebxiCFGWHCGLJJ9932-45-36 11:03:00 Test Item Value Reference Range Interpretation Comments Segs (test code = Segs) 42.5 45.0-75.0 [facility] HospitalXbzaxejPYTWOKPYGP1292-04-35 11:03:00 Test Item Value Reference Range Interpretation Comments Lymphocytes (test code = Lymphocytes) 37.0 20.0-40.0 [facility] HospitalMeyaljjLUGAWLLGHM3309-20-27 11:03:00 Test Item Value Reference Range Interpretation Comments Monocytes (test code = Monocytes) 9.0 2.0-12.0 [facility] HospitalSjhgddcYQRAVJNEWV5457-95-39 11:03:00 Test Item Value Reference Range Interpretation Comments MPV (test code = MPV) 9.8 7.4-10.4 [facility] HospitalCregvjyNYRWTBIFYV2744-73-50 11:03:00 Test Item Value Reference Range Interpretation Comments WBC (test code = WBC) 5.0 3.7-10.4 [facility] HospitalEbkeredHZTWCLKLLQ4924-73-87 11:03:00 Test Item Value Reference Range Interpretation Comments RBC (test code = RBC) 3.57 4.20-5.40 [facility] HospitalKpkhsqcVNTYSMYEAP3160-53-82 11:03:00 Test Item Value Reference Range Interpretation Comments Hgb (test code = Hgb) 9.4 12.0-16.0 [facility] HospitalXmywebrKQEGSBAYCP6822-45-91 11:03:00 Test Item Value Reference Range Interpretation Comments Hct (test code = Hct) 28.5 36.0-48.0 [facility] HospitalMhzheuiBRNYJXBKRS8692-89-57 11:03:00 Test Item Value Reference Range Interpretation Comments Platelet (test code = Platelet) 183 133-450 [facility] HospitalFuutqrvEGUUMUJWKH0917-69-80 11:03:00 Test Item Value Reference Range Interpretation Comments MCV (test code = MCV) 79.9 80.0-98.0 [facility]GLMYDMCTKR4876-[facility] 11:03:00 Test Item Value Reference Range Interpretation Comments MCH (test code = MCH) 26.3 pg 27.0-31.0 [facility]OrxmtzwNTWIIFOTJY4129-91-79 11:03:00 Test Item Value Reference Range Interpretation Comments MCHC (test code = MCHC) 33.0 32.0-36.0 [facility] HospitalZcqxrhqLXWQNXKNKM3609-63-01 11:03:00 Test Item Value Reference Range Interpretation Comments RDW (test code = RDW) 15.9 11.5-14.5 [facility]2016-12-24 10:26:00 Test Item Value Reference Range Interpretation Comments U Prot/Creat (test code = U Prot/Creat) 6.9 [facility]2016-12-24 10:26:00 Test Item Value Reference Range Interpretation Comments U Creatinine (test code = U Creatinine) 19.30 [facility]2016-12-24 10:26:00 Test Item Value Reference Range Interpretation Comments U Protein (test code = U Protein) 133.1 [facility] HospitalFpjonsiTGFQQSAYLD6621-89-25 09:20:00 Test Item Value Reference Range Interpretation Comments MPV (test code = MPV) 9.7 7.4-10.4 [facility] HospitalJqbekgiQEJVRVZXHT4981-30-97 09:20:00 Test Item Value Reference Range Interpretation Comments Platelet (test code = Platelet) 184 133-450 [facility] HospitalYszomvbTSYGFVARDJ9413-78-98 09:20:00 Test Item Value Reference Range Interpretation Comments RDW (test code = RDW) 15.9 11.5-14.5 [facility] HospitalSischpcFKEAAHQUMW8244-83-92 09:20:00 Test Item Value Reference Range Interpretation Comments MCV (test code = MCV) 79.3 80.0-98.0 [facility]GggktxoMQSDAJFKOE6035-35-56 09:20:00 Test Item Value Reference Range Interpretation Comments MCHC (test code = MCHC) 33.0 32.0-36.0 [facility]UdsvwyqMSHBANFWJJ5935-20-27 09:20:00 Test Item Value Reference Range Interpretation Comments MCH (test code = MCH) 26.2 pg 27.0-31.0 [facility]EiywbgaZNBVXKNKIR5998-00-39 09:20:00 Test Item Value Reference Range Interpretation Comments Hct (test code = Hct) 29.4 36.0-48.0 [place] 749126-12-24 09:20:00 Test Item Value Reference Range Interpretation Comments Hgb (test code = Hgb) 9.7 12.0-16.0 [place] 749126-12-24 09:20:00 Test Item Value Reference Range Interpretation Comments RBC (test code = RBC) 3.70 4.20-5.40 [place] 749126-12-24 09:20:00 Test Item Value Reference Range Interpretation Comments WBC (test code = WBC) 5.7 3.7-10.4 [facility] HospitalNcnmzfwEVDNSJGTTE1302-69-74 09:20:00 Test Item Value Reference Range Interpretation Comments Basophils # (test code 0.1 See_Comment [Aut omated message] The = Basophils #) system which generated this result tra nsmitted reference range : <=0.2. The reference r leo was not used to int erpret this result as normal/abnormal . [place] 749126-12-24 09:20:00 Test Item Value Reference Range Interpretation Comments Lymphocytes # (test code = Lymphocytes 2.2 1.0-5.5 #) [facility] HospitalWfygeaiQQRXORINJS7606-17-00 09:20:00 Test Item Value Reference Range Interpretation Comments Eosinophils # (test code 0.5 See_Comment [A utomated message] The = Eosinophils #) system whic h generated this result tra nsmitted reference range : <=0.5. The reference r leo was not used to int erpret this result as normal/abnormal . [facility] HospitalTjvajquZFMOJOPZMF6315-95-13 09:20:00 Test Item Value Reference Range Interpretation Comments Monocytes # (test code 0.5 See_Comment [Aut omated message] The = Monocytes #) system which generated this result tra nsmitted reference range : <=0.8. The reference r leo was not used to int erpret this result as normal/abnormal . [facility] HospitalHhxttvqSZNRCCHKBQ3022-94-09 09:20:00 Test Item Value Reference Range Interpretation Comments Basophils (test code = 1.1 See_Comment [Aut omated message] The Basophils) system which ge nerated this result tra nsmitted reference range : <=1.0. The reference r leo was not used to int erpret this result as normal/abnormal . [facility] HospitalPoxuqwpWCLBAIVDOA0093-35-54 09:20:00 Test Item Value Reference Range Interpretation Comments Segs-Bands # (test code = Segs-Bands #) 2.3 1.5-8.1 [place] 749126-12-24 09:20:00 Test Item Value Reference Range Interpretation Comments Eosinophils (test code = 9.5 See_Comment [A utomated message] The Eosinophils) system which ge nerated this result tra nsmitted reference range : <=4.0. The reference r leo was not used to int erpret this result as normal/abnormal . [facility] HospitalFuhpgebCRAGSMUDQT6560-82-97 09:20:00 Test Item Value Reference Range Interpretation Comments Monocytes (test code = Monocytes) 9.0 2.0-12.0 [facility] HospitalMhxvmpqZAGIPTDEBN8062-45-67 09:20:00 Test Item Value Reference Range Interpretation Comments Lymphocytes (test code = Lymphocytes) 38.9 20.0-40.0 [facility] HospitalXapsiwrPAIEUVQVHD9742-13-91 09:20:00 Test Item Value Reference Range Interpretation Comments Segs (test code = Segs) 41.5 45.0-75.0 [facility]2016-12-24 06:34:00 Test Item Value Reference Range Interpretation Comments Magnesium Lvl (test code = Magnesium 1.7 1.8-2.4 Lvl) [facility]2016-12-24 06:34:00 Test Item Value Reference Range Interpretation Comments Phosphorus (test code = Phosphorus) 4.2 2.5-4.5 [facility]rengbvQVGMJVHLBTGX1489-64-09 06:34:00 Test Item Value Reference Range Interpretation Comments AGAP (test code = AGAP) 14.3 10.0-20.0 [facility] HospitalUcqjejkDYVYAVOEPIHY9355-18-33 06:34:00 Test Item Value Reference Range Interpretation Comments eGFR (test code = eGFR) 41 [facility] HospitalXoeqyopKNNGKSAVLFJI6128-81-21 06:34:00 Test Item Value Reference Range Interpretation Comments Chloride Lvl (test code = Chloride Lvl) 103 95-109 [facility] HospitalVlbqqjzUIGERNZFKWOX1363-70-72 06:34:00 Test Item Value Reference Range Interpretation Comments Calcium Lvl (test code = Calcium Lvl) 8.5 8.5-10.5 [facility] HospitalXzgwywtPBSABRBPCCME3362-84-80 06:34:00 Test Item Value Reference Range Interpretation Comments CO2 (test code = CO2) 32 24-32 [facility] HospitalUjoqbppISNUXEMISTPD4216-41-45 06:34:00 Test Item Value Reference Range Interpretation Comments Glucose Lvl (test code = Glucose Lvl) 173 70-99 [facility] HospitalCxitbwzDJOPWPPOUAHR6362-71-55 06:34:00 Test Item Value Reference Range Interpretation Comments BUN (test code = BUN) 37 7-22 [facility] HospitalBtvitayPPMQWDCATIUQ1644-84-18 06:34:00 Test Item Value Reference Range Interpretation Comments Creatinine Lvl (test code = Creatinine 1.63 0.50-1.40 Lvl) [facility] HospitalVkjfbaaCOIYILDWOUMC4476-85-98 06:34:00 Test Item Value Reference Range Interpretation Comments Potassium Lvl (test code = Potassium 4.3 3.5-5.1 Lvl) [facility] HospitalUigahakSXFFJJLDNNVN5369-30-06 06:34:00 Test Item Value Reference Range Interpretation Comments Sodium Lvl (test code = Sodium Lvl) 145 135-145 [facility]2016-12-22 16:21:00 Test Item Value Reference Range Interpretation Comments Ammonia (test code = Ammonia) 48.0 [facility]FwmlcfmFACYMVQMIL4883-76-87 14:56:00 Test Item Value Reference Range Interpretation Comments IVETTE Interp (test code Pattern appears = IVETTE Interp) Nucleolar. [facility] CenterBvgdwkdMVEMPLEJYO8439-24-96 14:56:00 Test Item Value Reference Range Interpretation Comments IVETTE Titer (test code = 1:40 *ABN*(06/11/16 IVETTE Titer) 8:56 AM) [facility] CenterJquykbqCLLGQPKELQ1187-17-22 14:56:00 Test Item Value Reference Range Interpretation Comments Hep Bs Ag (test code Negative *NA*(06/11/16 = Hep Bs Ag) 8:56 AM) [facility] CenterZbwqxjoKZKHVNWSCT3381-31-32 14:56:00 Test Item Value Reference Range Interpretation Comments Hep C Ab (test code = Negative *NA*(06/11/16 Hep C Ab) 8:56 AM) [facility] CenterPvyacanDPNHDBKAXH4544-99-98 14:56:00 Test Item Value Reference Range Interpretation Comments Hep B Core IgM (test Negative *NA*(06/11/16 code = Hep B Core 8:56 AM) IgM) [facility]ZrgzlqkUJVBZQXMFL5683-68-49 14:56:00 Test Item Value Reference Range Interpretation Comments Hep A IgM (test code Negative *NA*(06/11/16 = Hep A IgM) 8:56 AM) [facility] CenterBpwjymjAIMTDOAOCQ6608-91-83 14:56:00 Test Item Value Reference Range Interpretation Comments HIV Ag/Ab 4th Gen Negative *NA*(06/11/16 (test code = HIV 8:56 AM) Ag/Ab 4th Gen) [facility]inteTnwfwldZZCJBOLGRA0652-95-44 14:56:00 Test Item Value Reference Range Interpretation Comments IVETTE (test code = IVETTE) Positive *ABN*(06/11/16 8:56 AM) [facility]2016-12-22 10:42:00 Test Item Value Reference Range Interpretation Comments Bili Total (test code = Bili Total) 0.1 0.2-1.3 [facility]2016-12-22 10:42:00 Test Item Value Reference Range Interpretation Comments Total Protein (test code = Total 5.2 6.4-8.4 Protein) [facility]2016-12-22 10:42:00 Test Item Value Reference Range Interpretation Comments Albumin Lvl (test code = Albumin Lvl) 1.6 3.5-5.0 [facility]2016-12-22 10:42:00 Test Item Value Reference Range Interpretation Comments B/C Ratio (test code = B/C Ratio) 20 6-25 [facility]2016-12-22 10:42:00 Test Item Value Reference Range Interpretation Comments Globulin (test code = Globulin) 3.6 2.7-4.2 [facility]2016-12-22 10:42:00 Test Item Value Reference Range Interpretation Comments A/G Ratio (test code = A/G Ratio) 0.4 0.7-1.6 [facility]2016-12-22 10:42:00 Test Item Value Reference Range Interpretation Comments Alk Phos (test code = Alk Phos) 74 39-136 [facility]2016-12-22 10:42:00 Test Item Value Reference Range Interpretation Comments ALT (test code = ALT) 14 See_Comment [Auto mated message] The system which ge nerated this result transmit rohit reference range : <=65. The reference range was not used to interpr et this result as reji l/abnormal. [facility] HiringBossannCHEM [id number] 10:42:00 Test Item Value Reference Range Interpretation Comments AST (test code = AST) 13 See_Comment [Auto mated message] The system which ge nerated this result transmit rohit reference range : <=37. The reference range was not used to interpr et this result as reji l/abnormal. [facility] IhlxfwzWNPENRNICO9850-57-45 10:42:00 Test Item Value Reference Range Interpretation Comments INR (test code = INR) 1.06 0.85-1.17 [facility]ZcgkzkeADRYLEDIZS5872-98-45 10:42:00 Test Item Value Reference Range Interpretation Comments PT (test code = PT) 14.0 s 12.0-14.7 [facility] HeightsMelylflWGVWFUNBIW3089-40-81 10:42:00 Test Item Value Reference Range Interpretation Comments PTT (test code = PTT) 36.4 s 22.9-35.8 [facility]inteSPECIAL TULFQOIEQ0480-24-34 10:42:00 Test Item Value Reference Range Interpretation Comments Hgb A1C (test code = Hgb A1C) 10.5 [facility] HermannCARDIAC [id number] 02:08:00 Test Item Value Reference Range Interpretation Comments CK MB Index (test 1.8 See_Comment [Automate d message] The code = CK MB Index) system w [facility] generated this result transmit rohit reference range : <=2.5. The reference range was not used to interpr et this result as reji l/abnormal. [facility] HermannCARDIAC [id number] 02:08:00 Test Item Value Reference Range Interpretation Comments CK MB (test code = CK MB) 2.9 0.5-3.6 [facility] HermannCARDIAC [id number] 02:08:00 Test Item Value Reference Range Interpretation Comments Troponin-T (test code 0.061 See_Comment [Auto mated message] The = Troponin-T) system which g enerated this result transmit rohit reference range : <=0.100. The reference r leo was not used to interpr et this result as reji l/abnormal. [facility] HiringBossannCARDIAC [id number] 02:08:00 Test Item Value Reference Range Interpretation Comments Total CK (test code = Total CK) 159 12-191 [facility]inteCARDI[facility] CWJTCRU3637-67-72 02:08:00 Test Item Value Reference Range Interpretation Comments Troponin-I (test code no gt See_Comment [Auto mated message] The = Troponin-I) system which g enerated this result transmit rohit reference range : <=0.40. The reference r leo was not used to interpr et this result as reji l/abnormal. [facility]inteinterspireSubmit [id number] 02:08:00 Test Item Value Reference Range Interpretation Comments Bili Total (test code = Bili Total) 0.2 0.2-1.3 [facility]2016-12-22 02:08:00 Test Item Value Reference Range Interpretation Comments Bili Direct (test code 0.1 See_Comment [Aut omated message] The = Bili Direct) system which generated this result tra nsmitted reference range : <=0.3. The reference r leo was not used to int erpret this result as reji l/abnormal. [facility]inteinterspireSubmit [id number] 02:08:00 Test Item Value Reference Range Interpretation Comments Bili Indirect (test 0.1 See_Comment [Automa rohit message] The code = Bili Indirect) system which generated this result tra nsmitted reference range : <=1.0. The reference r leo was not used to int erpret this result as normal/abnormal . [facility]inteinterspireSubmit [id number] 02:08:00 Test Item Value Reference Range Interpretation Comments Total Protein (test code = Total 5.7 6.4-8.4 Protein) [facility]2016-12-22 02:08:00 Test Item Value Reference Range Interpretation Comments A/G Ratio (test code = A/G Ratio) 0.5 0.7-1.6 [facility]2016-12-22 02:08:00 Test Item Value Reference Range Interpretation Comments Albumin Lvl (test code = Albumin Lvl) 1.8 3.5-5.0 [facility]2016-12-22 02:08:00 Test Item Value Reference Range Interpretation Comments Globulin (test code = Globulin) 3.9 2.7-4.2 [facility]2016-12-22 02:08:00 Test Item Value Reference Range Interpretation Comments Alk Phos (test code = Alk Phos) 99 39-136 [facility]BossanninterspireSubmit [id number] 02:08:00 Test Item Value Reference Range Interpretation Comments AST (test code = AST) 21 See_Comment [Auto mated message] The system which ge nerated this result transmit rohit reference range : <=37. The reference range was not used to interpr et this result as reji l/abnormal. [facility] [employer]$ [employer] [id number] 02:08:00 Test Item Value Reference Range Interpretation Comments ALT (test code = ALT) 17 See_Comment [Auto mated message] The system which ge nerated this result transmit rohit reference range : <=65. The reference range was not used to interpr et this result as reji l/abnormal. [facility]BossannDRUG [id number] 02:08:00 Test Item Value Reference Range Interpretation Comments UDS Note (test code = See Note *NA*(06/10/16 UDS Note) 8:08 PM) [facility] [employer]BossannDRUG [id number] 02:08:00 Test Item Value Reference Range Interpretation Comments U Propoxyph Scr (test Negative *NA*(06/10/16 code = U Propoxyph Scr) 8:08 PM) [facility]BossannDR[facility] [id number] 02:08:00 Test Item Value Reference Range Interpretation Comments U Opiate Scr (test Negative *NA*(06/10/16 code = U Opiate Scr) 8:08 PM) [facility] [employer]BossannDR[employer] [id number] 02:08:00 Test Item Value Reference Range Interpretation Comments U Methadone Scr (test Negative *NA*(06/10/16 code = U Methadone Scr) 8:08 PM) [facility]DR[facility] [id number] 02:08:00 Test Item Value Reference Range Interpretation Comments U Phencyc Scr (test Negative *NA*(06/10/16 code = U Phencyc Scr) 8:08 PM) [facility]DR[employer] [id number] 02:08:00 Test Item Value Reference Range Interpretation Comments U Cannab Scr (test Negative *NA*(06/10/16 code = U Cannab Scr) 8:08 PM) [facility]DR[employer] [id number] 02:08:00 Test Item Value Reference Range Interpretation Comments U Amph Scr (test code Negative *NA*(06/10/16 = U Amph Scr) 8:08 PM) [facility]annDR[facility] [id number] 02:08:00 Test Item Value Reference Range Interpretation Comments U Kelly Scr (test code Negative *NA*(06/10/16 = U Kelly Scr) 8:08 PM) [facility] [id number] 02:08:00 Test Item Value Reference Range Interpretation Comments U Benzodia Scr (test Negative *NA*(06/10/16 code = U Benzodia Scr) 8:08 PM) [facility]ann[facility] [id number] 02:08:00 Test Item Value Reference Range Interpretation Comments U Cocaine Scr (test Negative *NA*(06/10/16 code = U Cocaine Scr) 8:08 PM) [facility] [id number] 02:08:00 Test Item Value Reference Range Interpretation Comments LDL (Calculated) (test code = LDL 75 (Calculated)) [facility] YvomjrfQAYKDL2304-94-94 02:08:00 Test Item Value Reference Range Interpretation Comments VLDL (test code = VLDL) 27 [facility] JjvsxnjWQLRPW0794-45-91 02:08:00 Test Item Value Reference Range Interpretation Comments Chol (test code = Chol) 133 [facility] WgfwdlcVVXJYH6129-01-07 02:08:00 Test Item Value Reference Range Interpretation Comments Trig (test code = Trig) 133 [facility] SmhxwthFDUVWY7707-96-20 02:08:00 Test Item Value Reference Range Interpretation Comments CHD Risk (test code = CHD Risk) 4.29 3.90-5.80 [facility] BsfbutgFBNUPW9452-46-75 02:08:00 Test Item Value Reference Range Interpretation Comments HDL (test code = HDL) 31 [facility] [id number] 02:08:00 Test Item Value Reference Range Interpretation Comments UA Urobilinogen (test code = UA <=1.0 mg/dL 0.1-1.0 Urobilinogen) [facility] [id number] 02:08:00 Test Item Value Reference Range Interpretation Comments UA Ketones (test code = UA Negative mg/dL Ketones) [facility] [id number] 02:08:00 Test Item Value Reference Range Interpretation Comments UA Glucose (test code = UA Glucose) 300 mg/dL [facility] AND [id number] 02:08:00 Test Item Value Reference Range Interpretation Comments UA Protein (test code = UA >=300 mg/dL Protein) [facility] AND [id number] 02:08:00 Test Item Value Reference Range Interpretation Comments UA pH (test code = UA pH) 6.0 5.0-8.0 [facility] AND [id number] 02:08:00 Test Item Value Reference Range Interpretation Comments UA Nitrite (test code Negative (06/10/16 8:08 = UA Nitrite) PM) [facility] AND [id number] 02:08:00 Test Item Value Reference Range Interpretation Comments UA Blood (test code = Trace *ABN*(06/10/16 UA Blood) 8:08 PM) [facility] AND [id number] 02:08:00 Test Item Value Reference Range Interpretation Comments UA Bili (test code = Negative *NA*(06/10/16 UA Bili) 8:08 PM) [facility] AND [id number] 02:08:00 Test Item Value Reference Range Interpretation Comments UA Mucus (test code = UA Mucus) Few /LPF [facility] AND [id number] 02:08:00 Test Item Value Reference Range Interpretation Comments UA RBC (test code = 4 See_Comment [Automa rohit message] The UA RBC) system which ge nerated this result transmit rohit reference range : <=2. The reference range was not used to interpr et this result as reji l/abnormal. [facility] AND [id number] 02:08:00 Test Item Value Reference Range Interpretation Comments UA Sq Epi (test code = UA Sq Epi) Few /LPF [facility] AND [id number] 02:08:00 Test Item Value Reference Range Interpretation Comments UA WBC (test code = 5 See_Comment [Automa rohit message] The UA WBC) system which ge nerated this result transmit rohit reference range : <=5. The reference range was not used to interpr et this result as reji l/abnormal. [facility] AND [id number] 02:08:00 Test Item Value Reference Range Interpretation Comments UA Leuk Est (test code Small *ABN*(06/10/16 = UA Leuk Est) 8:08 PM) [facility] AND [id number] 02:08:00 Test Item Value Reference Range Interpretation Comments UA Hyal Cast (test 1 See_Comment [Automat ed message] The code = UA Hyal Cast) system which generated this result transmit rohit reference range : <=2. The reference range was not used to interpr et this result as reji l/abnormal. [facility] [id number] 02:08:00 Test Item Value Reference Range Interpretation Comments UA Spec Grav (test code = UA Spec Grav) 1.009 [facility] AND [id number] 02:08:00 Test Item Value Reference Range Interpretation Comments UA Color (test code = Yellow *NA*(06/10/16 UA Color) 8:08 PM) [facility] AND [id number] 02:08:00 Test Item Value Reference Range Interpretation Comments UA Turbidity (test code = Clear (06/10/16 8:08 UA Turbidity) PM) [facility] [id number] 02:08:00 Test Item Value Reference Range Interpretation Comments U Preg (test code = U Negative (06/10/16 8:08 Preg) PM) [facility] [id number] 02:08:00 Test Item Value Reference Range Interpretation Comments U Protein (test code = U Protein) 375.4 [facility] [id number] 02:08:00 Test Item Value Reference Range Interpretation Comments U Prot/Creat (test code = U Prot/Creat) 5.4 [facility] [id number] 02:08:00 Test Item Value Reference Range Interpretation Comments U Creatinine (test code = U Creatinine) 69.80 [facility] [id number] 16:53:00 Test Item Value Reference Range Interpretation Comments BNP (test code = BNP) 1135 [facility] [id number] 16:53:00 Test Item Value Reference Range Interpretation Comments Troponin-I (test code no gt See_Comment [Auto mated message] The = Troponin-I) system which g enerated this result transmit rohit reference range : <=0.40. The reference r leo was not used to interpr et this result as reji l/abnormal. [facility]2015-01-06 13:02:00 Test Item Value Reference Range Interpretation Comments Lactic Acid WB (test code = Lactic Acid 0.9 0.5-2.2 WB) [facility]IajiuonMYAVECNHEH8262-23-00 12:29:44 Test Item Value Reference Range Interpretation Comments Valproic Acid Lvl (test code = Valproic 10 50-100 Acid Lvl) [facility]VtfoeocLTXGFODSYFFAM1641-95-32 11:21:27 Test Item Value Reference Range Interpretation Comments hCG Tot (test code = hCG Tot) 1 [facility]2015-01-06 11:21:00 Test Item Value Reference Range Interpretation Comments Albumin Lvl (test code = Albumin Lvl) 3.2 3.5-5.0 [facility]2015-01-06 11:21:00 Test Item Value Reference Range Interpretation Comments Total Protein (test code = Total 6.6 6.4-8.4 Protein) [facility]2015-01-06 11:21:00 Test Item Value Reference Range Interpretation Comments Bili Total (test code = Bili Total) 0.6 0.2-1.3 [facility]2015-01-06 11:21:00 Test Item Value Reference Range Interpretation Comments Alk Phos (test code = Alk Phos) 59 39-136 [facility]2015-01-06 11:21:00 Test Item Value Reference Range Interpretation Comments AST (test code = AST) 11 See_Comment [Auto mated message] The system which ge nerated this result transmit rohit reference range : <=37. The reference range was not used to interpr et this result as reji l/abnormal. [facility]2015-01-06 11:21:00 Test Item Value Reference Range Interpretation Comments ALT (test code = ALT) 17 See_Comment [Auto mated message] The system which ge nerated this result transmit rohit reference range : <=65. The reference range was not used to interpr et this result as reji l/abnormal. [place] 317335-01-06 11:21:00 Test Item Value Reference Range Interpretation Comments eGFR (test code = eGFR) 99 [facility]2015-01-06 11:21:00 Test Item Value Reference Range Interpretation Comments Glucose Lvl (test code = Glucose Lvl) 314 70-99 [facility]2015-01-06 11:21:00 Test Item Value Reference Range Interpretation Comments Potassium Lvl (test code = Potassium 3.4 3.5-5.1 Lvl) [facility]2015-01-06 11:21:00 Test Item Value Reference Range Interpretation Comments BUN (test code = BUN) 11 7-22 [facility]2015-01-06 11:21:00 Test Item Value Reference Range Interpretation Comments Creatinine Lvl (test code = Creatinine 0.8 0.5-1.4 Lvl) [facility]2015-01-06 11:21:00 Test Item Value Reference Range Interpretation Comments Sodium Lvl (test code = Sodium Lvl) 134 135-145 [facility]2015-01-06 11:21:00 Test Item Value Reference Range Interpretation Comments Chloride Lvl (test code = Chloride Lvl) 94 95-109 [facility]2015-01-06 11:21:00 Test Item Value Reference Range Interpretation Comments Calcium Lvl (test code = Calcium Lvl) 9.1 8.5-10.5 [facility]2015-01-06 11:21:00 Test Item Value Reference Range Interpretation Comments CO2 (test code = CO2) 24 24-32 [facility]2015-01-06 11:21:00 Test Item Value Reference Range Interpretation Comments A/G Ratio (test code = A/G Ratio) 0.9 0.7-1.6 [facility]2015-01-06 11:21:00 Test Item Value Reference Range Interpretation Comments Globulin (test code = Globulin) 3.4 2.0-4.0 [facility]2015-01-06 11:21:00 Test Item Value Reference Range Interpretation Comments B/C Ratio (test code = B/C Ratio) 14 6-25 [facility]2015-01-06 11:21:00 Test Item Value Reference Range Interpretation Comments AGAP (test code = AGAP) 19.4 10.0-20.0 [facility]2015-01-06 11:21:00 Test Item Value Reference Range Interpretation Comments Lipase Lvl (test code = Lipase Lvl) 81 73-393 [facility] HospitalJtdhpfyDMEUPHMSCM7949-32-58 11:21:00 Test Item Value Reference Range Interpretation Comments Large Plt (test code = Large Plt) Slight [facility] HospitalOixsjdvIUOVTXGGKE2964-25-90 11:21:00 Test Item Value Reference Range Interpretation Comments Basophils # (test code 0.0 See_Comment [Aut omated message] The = Basophils #) system which generated this result tra nsmitted reference range : <=0.2. The reference r leo was not used to int erpret this result as normal/abnormal . [facility] HospitalChcycmsMKQXCBABXT6933-12-21 11:21:00 Test Item Value Reference Range Interpretation Comments Anisocyte (test code = 1+ *ABN*(06/26/14 5:21 Anisocyte) AM) [facility] HospitalLemjjatYLOZWMWFVB4681-63-86 11:21:00 Test Item Value Reference Range Interpretation Comments Monocytes # (test code 0.6 See_Comment [Aut omated message] The = Monocytes #) system which generated this result tra nsmitted reference range : <=0.8. The reference r leo was not used to int erpret this result as normal/abnormal . [facility] HospitalPzqdufbROHLSXLLJW1326-88-38 11:21:00 Test Item Value Reference Range Interpretation Comments Eosinophils # (test code 0.1 See_Comment [A utomated message] The = Eosinophils #) system whic h generated this result tra nsmitted reference range : <=0.5. The reference r leo was not used to int erpret this result as normal/abnormal . [facility] HospitalLmpxxqyUEJTHFWUTW1409-48-67 11:21:00 Test Item Value Reference Range Interpretation Comments Lymphocytes # (test code = Lymphocytes 2.5 1.0-5.5 #) [facility] HospitalYxydlzlXPRARFYPUJ4156-98-25 11:21:00 Test Item Value Reference Range Interpretation Comments Segs (test code = Segs) 63.3 45.0-75.0 [facility] HospitalFngmqiiGXIMSNTVRR6213-30-75 11:21:00 Test Item Value Reference Range Interpretation Comments Segs-Bands # (test code = Segs-Bands #) 5.6 1.5-8.1 [facility] HospitalEsuktczRIYQQLGEMF8073-89-01 11:21:00 Test Item Value Reference Range Interpretation Comments Basophils (test code = 0.0 See_Comment [Aut omated message] The Basophils) system which ge nerated this result tra nsmitted reference range : <=1.0. The reference r leo was not used to int erpret this result as normal/abnormal . [facility] HospitalFquorgpZIISJJWPIP2244-08-55 11:21:00 Test Item Value Reference Range Interpretation Comments Eosinophils (test code = 0.9 See_Comment [A utomated message] The Eosinophils) system which ge nerated this result tra nsmitted reference range : <=4.0. The reference r leo was not used to int erpret this result as normal/abnormal . [facility] HospitalVayrxdrNRJQHEOXPE3795-96-93 11:21:00 Test Item Value Reference Range Interpretation Comments Monocytes (test code = Monocytes) 7.0 2.0-12.0 [facility] HospitalUovakcfBVHIJXFTIG4976-12-03 11:21:00 Test Item Value Reference Range Interpretation Comments Lymphocytes (test code = Lymphocytes) 28.8 20.0-40.0 [facility] HospitalIdpixvfHLDFPMBOLS4672-93-02 11:21:00 Test Item Value Reference Range Interpretation Comments WBC (test code = WBC) 8.8 3.7-10.4 [facility] HospitalJgcjvjcEYVPXLYTGI6069-33-26 11:21:00 Test Item Value Reference Range Interpretation Comments RBC (test code = RBC) 5.19 4.20-5.40 [facility] HospitalXtsuswrYDXZTSKWYG2426-72-78 11:21:00 Test Item Value Reference Range Interpretation Comments Hgb (test code = Hgb) 14.4 12.0-16.0 [facility] HospitalAmrejfjDBZRMEHGVJ5488-38-30 11:21:00 Test Item Value Reference Range Interpretation Comments Hct (test code = Hct) 43.1 36.0-48.0 [facility] HospitalKpvhwtmQHWTRJRRKV6822-58-83 11:21:00 Test Item Value Reference Range Interpretation Comments MCV (test code = MCV) 83.1 80.0-98.0 [facility] HospitalZolmgigLHOMXFCLCY2592-33-93 11:21:00 Test Item Value Reference Range Interpretation Comments MCH (test code = MCH) 27.8 pg 27.0-31.0 [facility] HospitalNtlwwypMZSGRZKFGY2759-59-89 11:21:00 Test Item Value Reference Range Interpretation Comments RDW (test code = RDW) 13.1 11.5-14.5 [facility] HospitalIrjvolmWEOBIZBTIJ6139-99-56 11:21:00 Test Item Value Reference Range Interpretation Comments MCHC (test code = MCHC) 33.5 32.0-36.0 [facility] HospitalApzietvRULPLKDSMJ8906-44-61 11:21:00 Test Item Value Reference Range Interpretation Comments Platelet (test code = Platelet) 201 133-450 [facility] HospitalJsxdewuOUHCQPKIFK5641-46-15 11:21:00 Test Item Value Reference Range Interpretation Comments MPV (test code = MPV) 10.4 7.4-10.4 [facility]lineWgomrytLBAEVAIKDS9337-65-25 04:48:55 Test Item Value Reference Range Interpretation Comments UA [place] Yeast (test code = UA Occasional /HPF A [place] Yeast) [facility]lineRltwthpNMMYEKPEKU3338-37-61 04:48:55 Test Item Value Reference Range Interpretation Comments UA Mucus (test code = UA Mucus) Few /LPF N [facility]lineAuxlkijNQYMHVMRZA3475-21-12 04:48:55 Test Item Value Reference Range Interpretation Comments UA Sq Epi (test code = UA Sq Moderate /LPF A Epi) [facility]lineWperubvVBOZPYXSEP3532-06-64 04:48:55 Test Item Value Reference Range Interpretation Comments Micro? (test code = Performed (04/14/2013 N Micro?) 23:48:55) [facility]lineKchcwsvCPRLLMVMKP3988-65-88 04:48:55 Test Item Value Reference Range Interpretation Comments UA WBC (test code = UA WBC) 0-2 /HPF N [facility]lineYrlatmqWIVNWTBXCJ4630-29-78 04:48:55 Test Item Value Reference Range Interpretation Comments UA Bacteria (test code = UA Occasional /HPF N Bacteria) [facility] ShorelineTngqidlSFKEPWNKKB6478-83-45 04:48:55 Test Item Value Reference Range Interpretation Comments UA Glucose (test code = UA Glucose) 500 mg/dL A [facility]lineKmqyeqyAKOOHGVVCK5822-70-44 04:48:55 Test Item Value Reference Range Interpretation Comments UA Bili (test code = Negative *NA*(04/14/2013 UA Bili) 23:48:55) [facility]lineUkqmhozPVDMRLRECJ4302-41-28 04:48:55 Test Item Value Reference Range Interpretation Comments UA Ketones (test code = Trace A UA Ketones) *ABN*(04/14/2013 23:48:55) [facility] ShorelineDlsbtbsPSWMFUBXGN8897-31-08 04:48:55 Test Item Value Reference Range Interpretation Comments UA Blood (test code = Negative (04/14/2013 N UA Blood) 23:48:55) [facility]lineDymfrbxFHXAHJEUJW1186-10-82 04:48:55 Test Item Value Reference Range Interpretation Comments UA Urobilinogen (test code = UA 0.2 0.1-1.0 N Urobilinogen) [facility]lineQedtqfoQDILMGLJDF6374-08-70 04:48:55 Test Item Value Reference Range Interpretation Comments UA Nitrite (test code Negative (04/14/2013 N = UA Nitrite) 23:48:55) [facility] ShorelineZoivelfQUHSVUHYPC8677-80-29 04:48:55 Test Item Value Reference Range Interpretation Comments UA Leuk Est (test Negative (04/14/2013 N code = UA Leuk Est) 23:48:55) [facility] ShorelineKoydoouVQUQQNSDMN3296-13-70 04:48:55 Test Item Value Reference Range Interpretation Comments UA Turbidity (test code = Clear (04/14/2013 N UA Turbidity) 23:48:55) [facility]linePsfjolqXLYNREOYHE8459-92-81 04:48:55 Test Item Value Reference Range Interpretation Comments UA Color (test code = Yellow *NA*(04/14/2013 UA Color) 23:48:55) [facility]lineDwprxddKEHVFKPPRV4858-10-90 04:48:55 Test Item Value Reference Range Interpretation Comments UA pH (test code = UA pH) 7.0 1 5.0-8.0 N [facility] ShorelinePlucxpkOLGQEJHFXS6931-48-29 04:48:55 Test Item Value Reference Range Interpretation Comments UA Spec Grav (test code = UA Spec 1.025 1 N Grav) [facility]lineEzcqgguLWSCVNABJV9539-48-70 04:48:55 Test Item Value Reference Range Interpretation Comments UA Protein (test code = Trace A UA Protein) *ABN*(04/14/2013 23:48:55) [facility]RgurzdtRTTNLLXTK0676-95-81 04:28:00 Test Item Value Reference Range Interpretation Comments S Preg (test code = S Negative *NA*(04/14/2013 Preg) 23:28:00) [facility] CenterFqmbvklYJBISKJTU4489-06-08 04:28:00 Test Item Value Reference Range Interpretation Comments Lipase Lvl (test code = Lipase Lvl) 233 73-393 N [facility] CenterRjyyttnMSXASQMNR1417-72-39 04:28:00 Test Item Value Reference Range Interpretation Comments Globulin (test code = Globulin) 4.1 2.0-4.0 H [facility] CenterKwdmihjSZEXFBZGR4996-42-75 04:28:00 Test Item Value Reference Range Interpretation Comments AGAP (test code = AGAP) 10.5 10.0-20.0 N [facility] CenterKohfjyjRZLSBKNND2544-95-85 04:28:00 Test Item Value Reference Range Interpretation Comments B/C Ratio (test code = B/C Ratio) 6 6-25 N [facility] CenterNptzkfnHQFGXZKZN3995-88-82 04:28:00 Test Item Value Reference Range Interpretation Comments A/G Ratio (test code = A/G Ratio) 0.7 0.7-1.6 N [facility] CenterWawxpdtWOQNDKEYP5327-97-40 04:28:00 Test Item Value Reference Range Interpretation Comments eGFR (test code = eGFR) 130 [facility] CenterXibxaylYLHHAPZYJ6577-65-65 04:28:00 Test Item Value Reference Range Interpretation Comments Albumin Lvl (test code = Albumin Lvl) 2.9 3.5-5.0 L [facility] CenterLjaaabwCTOXEHRKZ6163-70-55 04:28:00 Test Item Value Reference Range Interpretation Comments ASPARTATE TRANSAMINASE 20 See_Comment N [Aut omated message] (test code = ASPARTATE The s ystem which TRANSAMINASE) generated this result transmitted ref erence range: <=37. Th e reference range was not used to interpr et this result as normal/abnormal . [facility] CenterXpyzczrASHHMFAXN8008-39-09 04:28:00 Test Item Value Reference Range Interpretation Comments Bili Total (test code = Bili Total) 0.5 0.2-1.3 N [facility] CenterJeikkvoWTWZBWCZW8974-71-72 04:28:00 Test Item Value Reference Range Interpretation Comments Alk Phos (test code = Alk Phos) 89 39-136 N [facility] CenterWysodxxRICGVAUVC5676-07-72 04:28:00 Test Item Value Reference Range Interpretation Comments ALANINE AMINOTRANSFERASE 11 See_Comment N [A utomated message] (test code = ALANINE The sys tem which AMINOTRANSFERASE) generated this result transmitted ref erence range: <=65. Th e reference range was not used to int erpret this result as normal/abnormal . [facility] CenterOgetolxHVSTERLMT4741-17-78 04:28:00 Test Item Value Reference Range Interpretation Comments Creatinine Lvl (test code = Creatinine 0.5 0.5-1.4 N Lvl) [facility] CenterVwmlimgMHQACTUNX3922-02-17 04:28:00 Test Item Value Reference Range Interpretation Comments BUN (test code = BUN) 3 7-22 L [facility] CenterCpulclrTUUESYYEE1472-89-24 04:28:00 Test Item Value Reference Range Interpretation Comments Glucose Lvl (test code = Glucose Lvl) 255 70-99 H [facility] CenterJjytbggSLQIKYPBD5020-90-46 04:28:00 Test Item Value Reference Range Interpretation Comments Total Protein (test code = Total 7.0 6.4-8.4 N Protein) [facility] CenterJanrynaSEJIZIHEV8903-02-22 04:28:00 Test Item Value Reference Range Interpretation Comments Calcium Lvl (test code = Calcium Lvl) 8.7 8.5-10.5 N [facility] CenterOpqhlfjHHUTRFNEF5066-90-26 04:28:00 Test Item Value Reference Range Interpretation Comments CO2 (test code = CO2) 29 24-32 N [facility] CenterBrvbkffSWEJSURHG4014-61-60 04:28:00 Test Item Value Reference Range Interpretation Comments Chloride Lvl (test code = Chloride Lvl) 104 95-109 N [facility] CenterUvioexcNGADVJEBB1261-49-45 04:28:00 Test Item Value Reference Range Interpretation Comments Potassium Lvl (test code = Potassium 3.5 3.5-5.1 N Lvl) [facility] CenterEqptyrjRHUENNWJC2535-40-25 04:28:00 Test Item Value Reference Range Interpretation Comments Sodium Lvl (test code = Sodium Lvl) 140 135-145 N [facility] HospitalYqmrcaxNEVKRHKAVC0931-36-19 04:28:00 Test Item Value Reference Range Interpretation Comments PROTIME (test code = PROTIME) 12.1 s 12.0-14.7 N [facility] HospitalInuuqnoWHXYEWSLOV0709-33-65 04:28:00 Test Item Value Reference Range Interpretation Comments aPTT (test code = aPTT) 39.0 s 22.9-35.8 H [facility] HospitalJwnivxxNPNLSFEHAB2712-93-33 04:28:00 Test Item Value Reference Range Interpretation Comments INR (test code = INR) 0.90 0.85-1.17 N [facility] HospitalCogvhcqPPBKCTCRDM6618-06-15 04:28:00 Test Item Value Reference Range Interpretation Comments MCH (test code = MCH) 29.4 pg 27.0-31.0 N [facility] HospitalSyfividCPVQSNCKZO1641-83-96 04:28:00 Test Item Value Reference Range Interpretation Comments MCV (test code = MCV) 86.1 81.0-99.0 N [facility] HospitalEhnespeFFVEYNAWVA6429-71-48 04:28:00 Test Item Value Reference Range Interpretation Comments Hct (test code = Hct) 29.4 36.0-48.0 L [facility] HospitalPlmjmxwQWZXERMOIP6158-60-90 04:28:00 Test Item Value Reference Range Interpretation Comments RDW (test code = RDW) 14.0 11.5-14.5 N [facility] HospitalRxajiloNRSPMYGMWU0940-00-45 04:28:00 Test Item Value Reference Range Interpretation Comments WBC X 10x3 (test code = WBC X 10x3) 6.2 3.7-10.4 N [facility] HospitalUjsjynnBSJFBKMIVI5652-33-22 04:28:00 Test Item Value Reference Range Interpretation Comments Platelet (test code = Platelet) 178 133-450 N [facility] HospitalJicvpiqRVSMOVGAZG5658-26-69 04:28:00 Test Item Value Reference Range Interpretation Comments MCHC (test code = MCHC) 34.1 32.0-36.0 N [facility] HospitalDtdlpxbMMJIBDVLWL1668-21-35 04:28:00 Test Item Value Reference Range Interpretation Comments RBC X 10x6 (test code = RBC X 10x6) 3.41 4.20-5.40 L [facility] HospitalLgxunbiWZVABHWLRQ9961-08-78 04:28:00 Test Item Value Reference Range Interpretation Comments Hgb (test code = Hgb) 10.0 12.0-16.0 L [facility] HospitalPpczqebQZAZCZFFEN3636-58-90 04:28:00 Test Item Value Reference Range Interpretation Comments MPV (test code = MPV) 10.1 7.4-10.4 N [facility] HospitalGbqhfjkKUWPZYTBXW0691-91-96 04:28:00 Test Item Value Reference Range Interpretation Comments Segs-Bands # (test code = Segs-Bands #) 4.4 1.5-8.1 N [facility] HospitalZqmmzkvLPTHEHNVRQ9603-51-52 04:28:00 Test Item Value Reference Range Interpretation Comments Basophils (test code = 0.7 See_Comment N [Aut omated message] The Basophils) system which ge nerated this result tra nsmitted reference range : <=1.0. The reference r leo was not used to int erpret this result as normal/abnormal . [facility]EwowfoyMDUMSAGCTW3715-60-60 04:28:00 Test Item Value Reference Range Interpretation Comments Segs (test code = Segs) 70.7 45.0-75.0 N [facility] HospitalWpoelxfWSNAKLTJVQ4347-46-42 04:28:00 Test Item Value Reference Range Interpretation Comments Monocytes # (test code 0.3 See_Comment N [Aut omated message] The = Monocytes #) system which generated this result tra nsmitted reference range : <=0.8. The reference r leo was not used to int erpret this result as normal/abnormal . [facility] HospitalTseusubXAZKNKKCCE8546-80-65 04:28:00 Test Item Value Reference Range Interpretation Comments Lymphocytes # (test code = Lymphocytes 1.2 1.0-5.5 N #) [facility] HospitalCexgiryWLZBLWAUVW0032-57-82 04:28:00 Test Item Value Reference Range Interpretation Comments Monocytes (test code = Monocytes) 4.5 2.0-12.0 N [facility] HospitalVrwaufrLPNUUEZNUJ3743-06-13 04:28:00 Test Item Value Reference Range Interpretation Comments Eosinophils (test code = 4.1 See_Comment H [A utomated message] The Eosinophils) system which ge nerated this result tra nsmitted reference range : <=4.0. The reference r leo was not used to int erpret this result as normal/abnormal . [facility] HospitalKhfbmyoOMAAHCIIRE9710-73-17 04:28:00 Test Item Value Reference Range Interpretation Comments Lymphocytes (test code = Lymphocytes) 20.0 20.0-40.0 N [facility] HospitalLjbdqvdGKZSQRCEQP8076-76-77 04:28:00 Test Item Value Reference Range Interpretation Comments Basophils # (test code 0.0 See_Comment N [Aut omated message] The = Basophils #) system which generated this result tra nsmitted reference range : <=0.2. The reference r leo was not used to int erpret this result as normal/abnormal . [facility] HospitalLzueoqlRQHWBYZIQD9947-29-26 04:28:00 Test Item Value Reference Range Interpretation Comments Eosinophils # (test code 0.3 See_Comment N [A utomated message] The = Eosinophils #) system whic h generated this result tra nsmitted reference range : <=0.5. The reference r leo was not used to int erpret this result as normal/abnormal . [facility] GLUCOSE POREOTP7584-22-88 01:12:00 Test Item Value Reference Range Interpretation Comments Gluc POC Lifscn (test code = Gluc POC 260 70-99 H Lifscn) [facility] GLUCOSE SWLHMRW4494-81-41 01:12:00 Test Item Value Reference Range Interpretation Comments Comment1 (test code = Comment1) Not[facility]OutenxiGRJJXEBQNV9060-99-59 23:40:00 Test Item Value Reference Range Interpretation Comments UA Protein (test code = Trace A UA Protein) *ABN*(03/14/2012 18:40:00) [facility] HospitalYrsygumOXTWBTFFXQ2898-52-53 23:40:00 Test Item Value Reference Range Interpretation Comments UA pH (test code = UA pH) 6.0 1 5.0-8.0 N [facility] HospitalQatbtcsEFCCOORHEM4266-55-74 23:40:00 Test Item Value Reference Range Interpretation Comments UA Ketones (test code = >=80 mg/dL UA Ketones) *NA*(03/14/2012 18:40:00) [facility] HospitalNebrgjjRLQJLSHJMS4334-68-95 23:40:00 Test Item Value Reference Range Interpretation Comments UA Glucose (test code = >=1000 mg/dL A UA Glucose) *ABN*(03/14/2012 18:40:00) [facility]intePjnbqfvKVDBEWDGKQ6035-33-51 23:40:00 Test Item Value Reference Range Interpretation Comments UA Blood (test code = Negative (03/14/2012 N UA Blood) 18:40:00) [facility] PointeLqsplikPONIYEEXYJ9048-78-59 23:40:00 Test Item Value Reference Range Interpretation Comments UA Nitrite (test code Negative (03/14/2012 N = UA Nitrite) 18:40:00) [facility] PointeEpcozesHZFPQTFZLJ4774-65-74 23:40:00 Test Item Value Reference Range Interpretation Comments UA Urobilinogen (test code = UA 0.2 0.1-1.0 N Urobilinogen) [facility] PointeMyvkarfOZMNMRCBGC0191-67-97 23:40:00 Test Item Value Reference Range Interpretation Comments UA Leuk Est (test Negative (03/14/2012 N code = UA Leuk Est) 18:40:00) [facility] PointeErnydlxNLSSICGTMA6084-56-51 23:40:00 Test Item Value Reference Range Interpretation Comments UA Bili (test code = Negative *NA*(03/14/2012 UA Bili) 18:40:00) [facility] HospitalCcogytuHONUCRUYWZ5535-56-56 23:40:00 Test Item Value Reference Range Interpretation Comments UA Turbidity (test code = Clear (03/14/2012 N UA Turbidity) 18:40:00) [facility] HospitalNyxjdabYHGEGLHPBF0767-56-06 23:40:00 Test Item Value Reference Range Interpretation Comments UA Color (test code = Yellow *NA*(03/14/2012 UA Color) 18:40:00) [facility] HospitalBscudvpGJGNDJNHQV7356-17-04 23:40:00 Test Item Value Reference Range Interpretation Comments UA Spec Grav (test >=1.030 A code = UA Spec Grav) *ABN*(03/14/2012 18:40:00) [facility] HospitalWnbacdqQGBSXWRFJM3294-62-82 23:40:00 Test Item Value Reference Range Interpretation Comments UA Sq Epi (test code Occasional /LPF N = UA Sq Epi) (03/14/2012 18:40:00) [facility] HospitalEdrllbrFPIFIGQKKL5493-56-59 23:40:00 Test Item Value Reference Range Interpretation Comments UA WBC (test code = UA 3-5 /HPF (03/14/2012 N WBC) 18:40:00) [facility] HospitalYfqsdshASSRXCULIL0444-33-89 23:40:00 Test Item Value Reference Range Interpretation Comments UA Bacteria (test code Occasional /HPF N = UA Bacteria) (03/14/2012 18:40:00) [facility] CenterXuhippaQLRYHPVXR5510-94-98 22:50:00 Test Item Value Reference Range Interpretation Comments S Preg (test code = S Negative *NA*(03/14/2012 Preg) 17:50:00) [facility] CenterZfgjmikJZOCRUEET7017-05-60 22:50:00 Test Item Value Reference Range Interpretation Comments Lipase Lvl (test code = Lipase Lvl) 45 73-393 L [facility] CenterSniaochOQFNMPAXR4912-50-20 22:50:00 Test Item Value Reference Range Interpretation Comments A/G Ratio (test code = A/G Ratio) 1.2 0.7-1.6 N [facility] CenterPqtfhczWTYPMSJPW9724-80-47 22:50:00 Test Item Value Reference Range Interpretation Comments Globulin (test code = Globulin) 3.8 2.0-4.0 N [facility] CenterYzqahrkCGDMRYROE1588-74-44 22:50:00 Test Item Value Reference Range Interpretation Comments B/C Ratio (test code = B/C Ratio) 21 6-25 N [facility] CenterQremwdkOUTBZNQGD5697-89-14 22:50:00 Test Item Value Reference Range Interpretation Comments AGAP (test code = AGAP) 16.8 10.0-20.0 N [facility] CenterPzgvhecNWQXENTYB5583-49-73 22:50:00 Test Item Value Reference Range Interpretation Comments Bili Total (test code = Bili Total) 1.1 0.2-1.3 N [facility] CenterYdijyhvVUBWVYOBA1021-82-45 22:50:00 Test Item Value Reference Range Interpretation Comments Total Protein (test code = Total 8.2 6.4-8.4 N Protein) [facility] CenterKhomywbCJZEMQVVU1568-48-39 22:50:00 Test Item Value Reference Range Interpretation Comments Potassium Lvl (test code = Potassium 3.8 3.5-5.1 N Lvl) [facility] CenterGtilsvwEEDDTSWOL8813-61-74 22:50:00 Test Item Value Reference Range Interpretation Comments Creatinine Lvl (test code = Creatinine 0.7 0.5-1.4 N Lvl) [facility] CenterVssfznoMJXSNUIPT2098-36-69 22:50:00 Test Item Value Reference Range Interpretation Comments Sodium Lvl (test code = Sodium Lvl) 139 135-145 N [facility] CenterGbchamwKIJYUFJDN2298-85-86 22:50:00 Test Item Value Reference Range Interpretation Comments Chloride Lvl (test code = Chloride Lvl) 99 95-109 N [facility] CenterBfijcvaVJIKDTLVX6404-87-07 22:50:00 Test Item Value Reference Range Interpretation Comments CO2 (test code = CO2) 27 24-32 N [facility] CenterWuspbnvWNZJPVZWH8642-61-37 22:50:00 Test Item Value Reference Range Interpretation Comments Glucose Lvl (test code = Glucose Lvl) 301 70-99 H [facility] CenterGrjyskmKEXKCJIOV4690-23-73 22:50:00 Test Item Value Reference Range Interpretation Comments BUN (test code = BUN) 15 7-22 N [facility] CenterCzvrnylIYXMGLFUC3367-63-12 22:50:00 Test Item Value Reference Range Interpretation Comments ALT (test code = ALT) 24 See_Comment N [Auto mated message] The system which ge nerated this result transmit rohit reference range : <=65. The reference range was not used to interpr et this result as reji l/abnormal. [facility] CenterYrgclkcPPJMIARJO9640-80-99 22:50:00 Test Item Value Reference Range Interpretation Comments AST (test code = AST) 20 See_Comment N [Auto mated message] The system which ge nerated this result transmit rohit reference range : <=37. The reference range was not used to interpr et this result as reji l/abnormal. [facility] CenterPwloahkDOOIUCOEX9494-49-45 22:50:00 Test Item Value Reference Range Interpretation Comments Alk Phos (test code = Alk Phos) 67 39-136 N [facility] CenterPmpksqiEQHLYEDLX9936-39-47 22:50:00 Test Item Value Reference Range Interpretation Comments Albumin Lvl (test code = Albumin Lvl) 4.4 3.5-5.0 N [facility] CenterUybqqlnJODOMGDIU6212-10-52 22:50:00 Test Item Value Reference Range Interpretation Comments Calcium Lvl (test code = Calcium Lvl) 9.9 8.5-10.5 N [facility] HospitalRnwjgtuZBEWASNWZI9526-74-70 22:50:00 Test Item Value Reference Range Interpretation Comments MPV (test code = MPV) 11.8 7.4-10.4 H [facility] HospitalCinqlmyXJWVVEQOOO2181-87-50 22:50:00 Test Item Value Reference Range Interpretation Comments MCHC (test code = MCHC) 35.9 32.0-36.0 N [facility] HospitalGhaeovbBJKFIRKCHI0103-48-52 22:50:00 Test Item Value Reference Range Interpretation Comments MCH (test code = MCH) 31.2 pg 27.0-31.0 H [facility] HospitalNocfdscFQPCYIEKMY3138-24-32 22:50:00 Test Item Value Reference Range Interpretation Comments Platelet (test code = Platelet) 189 133-450 N [facility] HospitalNtwvafrKUQJTKHVXN0569-31-94 22:50:00 Test Item Value Reference Range Interpretation Comments RDW (test code = RDW) 13.1 11.5-14.5 N [facility] HospitalYqpsbljNPTYBOKSYJ5323-63-15 22:50:00 Test Item Value Reference Range Interpretation Comments Hct (test code = Hct) 40.7 36.0-48.0 N [facility] HospitalAogqmllQIPAPWHHWS1174-67-12 22:50:00 Test Item Value Reference Range Interpretation Comments Hgb (test code = Hgb) 14.6 12.0-16.0 N [facility] HospitalGuzautjBGHHLURZQG5964-93-33 22:50:00 Test Item Value Reference Range Interpretation Comments MCV (test code = MCV) 87.0 81.0-99.0 N [facility] HospitalJkieyeiXEIIAPYRDP1514-44-74 22:50:00 Test Item Value Reference Range Interpretation Comments WBC (test code = WBC) 11.7 3.7-10.4 H [facility] HospitalIwiddwmYMKQTODYZX9213-46-14 22:50:00 Test Item Value Reference Range Interpretation Comments RBC (test code = RBC) 4.68 4.20-5.40 N [facility] HospitalZibspkoLGRZFSSESM7072-92-29 22:50:00 Test Item Value Reference Range Interpretation Comments Basophils # (test code 0.0 See_Comment N [Aut omated message] The = Basophils #) system which generated this result tra nsmitted reference range : <=0.2. The reference r leo was not used to int erpret this result as normal/abnormal . [facility] HospitalPwrmeudDHKVYIYMMG0667-06-50 22:50:00 Test Item Value Reference Range Interpretation Comments Basophils (test code = 0.2 See_Comment N [Aut omated message] The Basophils) system which ge nerated this result tra nsmitted reference range : <=1.0. The reference r leo was not used to int erpret this result as normal/abnormal . [facility] HospitalXmangwbBGFIBIYEIT4453-49-10 22:50:00 Test Item Value Reference Range Interpretation Comments Eosinophils # (test code 0.0 See_Comment N [A utomated message] The = Eosinophils #) system whic h generated this result tra nsmitted reference range : <=0.5. The reference r leo was not used to int erpret this result as normal/abnormal . [facility] HospitalSahvfvyDVYBHDKHLY3531-50-00 22:50:00 Test Item Value Reference Range Interpretation Comments Monocytes # (test code 0.4 See_Comment N [Aut omated message] The = Monocytes #) system which generated this result tra nsmitted reference range : <=0.8. The reference r leo was not used to int erpret this result as normal/abnormal . [facility] HospitalDazkrksLVSYURHJYW6006-31-52 22:50:00 Test Item Value Reference Range Interpretation Comments Segs-Bands # (test code = Segs-Bands #) 10.6 1.5-8.1 H [facility] HospitalSkftxduVGMATMYCQN6804-56-71 22:50:00 Test Item Value Reference Range Interpretation Comments Lymphocytes # (test code = Lymphocytes 0.7 1.0-5.5 L #) [facility] HospitalYqyloihHOKYHPLMRE4971-61-04 22:50:00 Test Item Value Reference Range Interpretation Comments Monocytes (test code = Monocytes) 3.4 2.0-12.0 N [facility] HospitalRqccterDMSPHOEFWK7572-51-17 22:50:00 Test Item Value Reference Range Interpretation Comments Plt Morph (test code = Normal (03/14/2012 N Plt Morph) 17:50:00) [facility] HospitalYnxtbpwCHALLMDEAJ6338-37-58 22:50:00 Test Item Value Reference Range Interpretation Comments Lymphocytes (test code = Lymphocytes) 6.0 20.0-40.0 L [facility] HospitalUzjixxbQZRUNAOIMT6097-07-60 22:50:00 Test Item Value Reference Range Interpretation Comments Eosinophils (test code = 0.0 See_Comment N [A utomated message] The Eosinophils) system which ge nerated this result tra nsmitted reference range : <=4.0. The reference r leo was not used to int erpret this result as normal/abnormal . [facility] HospitalUtnuofhGKUPNPUOEO8531-13-37 22:50:00 Test Item Value Reference Range Interpretation Comments Segs (test code = Segs) 90.4 45.0-75.0 H [facility] HospitalEoskickDLZOISRLZJ0828-47-44 22:50:00 Test Item Value Reference Range Interpretation Comments RBC Morph (test code = Normal (03/14/2012 N RBC Morph) 17:50:00) [facility] GLUCOSE NGBCIHX9239-08-64 23:43:00 Test Item Value Reference Range Interpretation Comments Gluc POC Lifscn (test code = Gluc POC 167 70-99 H Lifscn) [facility] GLUCOSE BNGLOJG6540-35-26 23:43:00 Test Item Value Reference Range Interpretation Comments Comment1 (test code = Comment1) [facility]ALSIDE GLUCOSE RXOYMQN6322-19-57 23:43:00 Test Item Value Reference Range Interpretation Comments Comment2 (test code = Comment2) Sliding Scale [facility] GLUCOSE UBHHZTP4702-32-64 17:40:00 Test Item Value Reference Range Interpretation Comments Gluc POC Lifscn (test code = Gluc POC 189 70-99 H Lifscn) [facility] GLUCOSE HRJBAUL3304-29-68 17:40:00 Test Item Value Reference Range Interpretation Comments Comment1 (test code = Comment1) Notify RN/ [facility] GLUCOSE KTCZAHM8184-46-67 17:40:00 Test Item Value Reference Range Interpretation Comments Comment2 (test code = Comment2) Sliding Scale [facility] GLUCOSE CWUHIJR9614-14-52 13:34:00 Test Item Value Reference Range Interpretation Comments Comment2 (test code = Comment2) Sliding Scale [facility] GLUCOSE ABOVYIJ3076-53-63 13:34:00 Test Item Value Reference Range Interpretation Comments Gluc POC Lifscn (test code = Gluc POC 110 70-99 H Lifscn) [facility] GLUCOSE QPJFWKZ2722-51-48 13:34:00 Test Item Value Reference Range Interpretation Comments Comment1 (test code = Comment1) Notify TABATHA/ [facility]AxijaxnWWBHZYLBJ4529-03-99 00:00:00 Test Item Value Reference Range Interpretation Comments U Preg (test code = U Negative (11/28/2011 N Preg) 19:00:00) [facility] HeightsCduktarLGLDCPDBNB1172-99-30 00:00:00 Test Item Value Reference Range Interpretation Comments Micro? (test code = Performed (11/28/2011 N Micro?) 19:00:00) [facility] HeightsAlnbonfKQIPZNGJSL5949-31-14 00:00:00 Test Item Value Reference Range Interpretation Comments UA Sq Epi (test code Occasional /LPF N = UA Sq Epi) (11/28/2011 19:00:00) [facility] HeightsUngucfdPQYDIENPYV1646-84-00 00:00:00 Test Item Value Reference Range Interpretation Comments UA RBC (test None Seen See_Comment N [Automated mes pastor] code = UA RBC) (11/28/2011 The system ich 19:00:00) generated this result transmitted ref erence range: <=2. The reference range was not used to int erpret this result as normal/abnormal . [facility]inteEfkjcmxUPRAGAQNQQ4207-10-89 00:00:00 Test Item Value Reference Range Interpretation Comments UA WBC (test code Occasional See_Comment [Automate d message] The = UA WBC) system which ge nerated this result tra nsmitted reference range : <=5. The reference range was not used to interpr et this result as normal/abnormal . [facility] HospitalSwwaywyZSMDUFNTPT0737-04-67 00:00:00 Test Item Value Reference Range Interpretation Comments UA Protein (test code Negative mg/dL N = UA Protein) (11/28/2011 19:00:00) [facility] HospitalWitrqcbQVEBOGIOQM7226-09-70 00:00:00 Test Item Value Reference Range Interpretation Comments UA pH (test code = UA pH) 7.0 1 5.0-8.0 N [facility] HospitalUvkoeejVITSNLFGRP9931-18-76 00:00:00 Test Item Value Reference Range Interpretation Comments UA Spec Grav (test code = UA Spec 1.020 1 N Grav) [facility] HospitalQcaqlbkDUYTVACPXS0653-35-70 00:00:00 Test Item Value Reference Range Interpretation Comments UA Turbidity (test code = Clear (11/28/2011 N UA Turbidity) 19:00:00) [facility] HospitalXevxfjpYWRXKBBRYI1866-32-83 00:00:00 Test Item Value Reference Range Interpretation Comments UA Color (test code = Yellow *NA*(11/28/2011 UA Color) 19:00:00) [facility] HospitalCtpzoepZEAJHZKXHG5829-37-06 00:00:00 Test Item Value Reference Range Interpretation Comments UA Urobilinogen (test code = UA 0.2 0.1-1.0 N Urobilinogen) [facility]inteZtvggtzUVIYIKXDEI7780-78-38 00:00:00 Test Item Value Reference Range Interpretation Comments UA Blood (test code = Negative (11/28/2011 N UA Blood) 19:00:00) [facility] PointeKbkfcqnVWULVKUMJU7548-93-20 00:00:00 Test Item Value Reference Range Interpretation Comments UA Bili (test code = Negative *NA*(11/28/2011 UA Bili) 19:00:00) [facility]inteXsrqoafNOCPOBYNEJ1970-31-24 00:00:00 Test Item Value Reference Range Interpretation Comments UA Ketones (test code = >=80 mg/dL A UA Ketones) *ABN*(11/28/2011 19:00:00) [facility] PointeYrdzehgSLSAXDSSIE9220-57-46 00:00:00 Test Item Value Reference Range Interpretation Comments UA Glucose (test code = >=1000 mg/dL A UA Glucose) *ABN*(11/28/2011 19:00:00) [facility] HospitalTzbjnjaVISJQFFJGW4063-32-56 00:00:00 Test Item Value Reference Range Interpretation Comments UA Nitrite (test code Negative (11/28/2011 N = UA Nitrite) 19:00:00) [facility] PointeZmygsukEFPOSOCGVG0188-76-37 00:00:00 Test Item Value Reference Range Interpretation Comments UA Leuk Est (test Negative (11/28/2011 N code = UA Leuk Est) 19:00:00) [facility] CenterRwpytrqZQAYKGAXQ7284-88-26 20:41:00 Test Item Value Reference Range Interpretation Comments pO2 Roberth (test code = pO2 Roberth) 60 20-49 H [facility] CenterIaemaddRVUKSIMHX9778-56-34 20:41:00 Test Item Value Reference Range Interpretation Comments pCO2 Roberth (test code = pCO2 Roberth) 41 38-52 N [facility] CenterJxuazicDRKRPZQNH4276-42-58 20:41:00 Test Item Value Reference Range Interpretation Comments pH Roberth (test code = pH Roberth) 7.45 7.28-7.42 H [facility] CenterWulxzpnJTYAFXSRD6538-61-03 20:41:00 Test Item Value Reference Range Interpretation Comments Temp Roberth (test code = Temp Roberth) 37.0 [facility] CenterLmtzsyiXODQCDTIB7771-44-26 20:41:00 Test Item Value Reference Range Interpretation Comments O2 Sat Roberth (test code = O2 Sat Roberth) 92.0 40.0-70.0 H [facility] CenterJbjyitfPAFMMFTNC5586-07-64 20:41:00 Test Item Value Reference Range Interpretation Comments BE Roberth (test code = 4 See_Comment H [Automa rohit message] The BE Roberth) system which ge nerated this result transmit rohit reference range : <=2. The reference range was not used to interpr et this result as reji l/abnormal. [facility] CenterUpofzbmGZJMUITDV7777-66-36 20:41:00 Test Item Value Reference Range Interpretation Comments HCO3 Roberth (test code = HCO3 Roberth) 28.5 22.0-26.0 H [facility] CenterMkgwwpmEBNPRAOGF0510-60-42 20:00:00 Test Item Value Reference Range Interpretation Comments Lactic Acid Lvl (test code = Lactic 1.6 0.5-2.2 N Acid Lvl) [facility] CenterUdloohxAXSIMXZXA6156-41-93 20:00:00 Test Item Value Reference Range Interpretation Comments Lipase Lvl (test code = Lipase Lvl) 125 73-393 N [facility] CenterOyqslxpJHMCLOZQF2444-47-05 20:00:00 Test Item Value Reference Range Interpretation Comments Albumin Lvl (test code = Albumin Lvl) 4.2 3.5-5.0 N [facility] CenterNrbpcgrAORWVTAMM0621-55-86 20:00:00 Test Item Value Reference Range Interpretation Comments CO2 (test code = CO2) 23 24-32 L [facility] CenterNqnhgzjBJSQKTYHY0607-77-12 20:00:00 Test Item Value Reference Range Interpretation Comments Chloride Lvl (test code = Chloride Lvl) 98 95-109 N [facility] CenterXtdqwnxCVTZEDNSZ0018-42-71 20:00:00 Test Item Value Reference Range Interpretation Comments Potassium Lvl (test code = Potassium 3.8 3.5-5.1 N Lvl) [facility] CenterEsyhwpuFKUDISNUD8571-38-70 20:00:00 Test Item Value Reference Range Interpretation Comments Sodium Lvl (test code = Sodium Lvl) 138 135-145 N [facility] CenterNkktkujUDOZZPHAK9301-40-27 20:00:00 Test Item Value Reference Range Interpretation Comments Creatinine Lvl (test code = Creatinine 0.7 0.5-1.4 N Lvl) [facility] CenterJxxebusFHJGOERIY6802-60-35 20:00:00 Test Item Value Reference Range Interpretation Comments BUN (test code = BUN) 9 7-22 N [facility] CenterOzqizwkUCTCOVEWB4030-34-51 20:00:00 Test Item Value Reference Range Interpretation Comments Glucose Lvl (test code = Glucose Lvl) 269 70-99 H [facility] CenterCbppkhaAPKVTYWHD7618-51-57 20:00:00 Test Item Value Reference Range Interpretation Comments B/C Ratio (test code = B/C Ratio) 13 6-25 N [facility] CenterKunpmreKZQQLFNDS4445-10-69 20:00:00 Test Item Value Reference Range Interpretation Comments AGAP (test code = AGAP) 20.8 10.0-20.0 H [facility] CenterLcttgdnVYAFFGOFP5036-98-43 20:00:00 Test Item Value Reference Range Interpretation Comments Calcium Lvl (test code = Calcium Lvl) 9.3 8.5-10.5 N [facility] CenterWefquwgSKTANZTJF8930-36-58 20:00:00 Test Item Value Reference Range Interpretation Comments Total Protein (test code = Total 6.7 6.4-8.4 N Protein) [facility] CenterIbbsbqlMRYPGACLD9121-64-49 20:00:00 Test Item Value Reference Range Interpretation Comments A/G Ratio (test code = A/G Ratio) 1.7 0.7-1.6 H [facility] CenterXroslxuEAAIPLJDO0667-17-86 20:00:00 Test Item Value Reference Range Interpretation Comments Globulin (test code = Globulin) 2.5 2.0-4.0 N [facility] CenterFknxzdpUEEHTMEZZ8482-02-31 20:00:00 Test Item Value Reference Range Interpretation Comments AST (test code = AST) 18 See_Comment N [Auto mated message] The system which ge nerated this result transmit rohit reference range : <=37. The reference range was not used to interpr et this result as reji l/abnormal. [facility] CenterNgwefqxWFTXQYYJK3281-58-56 20:00:00 Test Item Value Reference Range Interpretation Comments Alk Phos (test code = Alk Phos) 62 39-136 N [facility] CenterKjzojqdPSBNTUJRU5109-90-81 20:00:00 Test Item Value Reference Range Interpretation Comments ALT (test code = ALT) 32 See_Comment N [Auto mated message] The system which ge nerated this result transmit rohit reference range : <=65. The reference range was not used to interpr et this result as reji l/abnormal. [facility] CenterAepokvpWNTZVQNLM2247-70-77 20:00:00 Test Item Value Reference Range Interpretation Comments Bili Total (test code = Bili Total) 0.7 0.2-1.3 N [facility]WqpipxxSYMPBVXXKQ6188-37-83 20:00:00 Test Item Value Reference Range Interpretation Comments Anisocyte (test code = 1+ *ABN*(11/28/2011 A Anisocyte) 15:00:00) [facility] HospitalTnxtshmCFQWGEZTZC3887-98-20 20:00:00 Test Item Value Reference Range Interpretation Comments Monocytes # (test code 0.1 See_Comment N [Aut omated message] The = Monocytes #) system which generated this result tra nsmitted reference range : <=0.8. The reference r leo was not used to int erpret this result as normal/abnormal . [facility] HospitalYnmomaxYHKADAOMSK2709-05-18 20:00:00 Test Item Value Reference Range Interpretation Comments Eosinophils # (test code 0.0 See_Comment N [A utomated message] The = Eosinophils #) system whic h generated this result tra nsmitted reference range : <=0.5. The reference r leo was not used to int erpret this result as normal/abnormal . [facility] HospitalAuhrdadUTRUDBMLXT5137-40-10 20:00:00 Test Item Value Reference Range Interpretation Comments Basophils # (test code 0.0 See_Comment N [Aut omated message] The = Basophils #) system which generated this result tra nsmitted reference range : <=0.2. The reference r leo was not used to int erpret this result as normal/abnormal . [facility] HospitalSryyiqxBNDGLUKKVU9898-30-75 20:00:00 Test Item Value Reference Range Interpretation Comments Neut Vac (test code = Slight *ABN*(11/28/2011 A Neut Vac) 15:00:00) [facility] HospitalVzlmserNRPYKNTTDK4441-09-76 20:00:00 Test Item Value Reference Range Interpretation Comments Large Plt (test code = Slight *ABN*(11/28/2011 A Large Plt) 15:00:00) [facility] HospitalFfidamxMLRCTHZFIC2998-81-33 20:00:00 Test Item Value Reference Range Interpretation Comments Segs-Bands # (test code = Segs-Bands #) 5.7 1.5-8.1 N [facility] HospitalYucjdqhIXFSWNQYQU1021-39-36 20:00:00 Test Item Value Reference Range Interpretation Comments Lymphocytes # (test code = Lymphocytes 0.8 1.0-5.5 L #) [facility] HospitalYygchznEGUVCPXKFN8311-61-17 20:00:00 Test Item Value Reference Range Interpretation Comments Eosinophils (test code = 0.2 See_Comment N [A utomated message] The Eosinophils) system which ge nerated this result tra nsmitted reference range : <=4.0. The reference r leo was not used to int erpret this result as normal/abnormal . [facility] HospitalMgzhqyxPFFRWJJTSO7303-61-23 20:00:00 Test Item Value Reference Range Interpretation Comments Basophils (test code = 0.0 See_Comment N [Aut omated message] The Basophils) system which ge nerated this result tra nsmitted reference range : <=1.0. The reference r leo was not used to int erpret this result as normal/abnormal . [facility] HospitalDedfpfbAPOYVEANRJ7127-43-24 20:00:00 Test Item Value Reference Range Interpretation Comments Monocytes (test code = Monocytes) 1.9 2.0-12.0 L [facility] HospitalTtvioftZJMYIIHUSG5869-96-24 20:00:00 Test Item Value Reference Range Interpretation Comments Segs (test code = Segs) 86.2 45.0-75.0 H [facility] HospitalSztbckfZBEMCUTZDL7791-79-25 20:00:00 Test Item Value Reference Range Interpretation Comments Lymphocytes (test code = Lymphocytes) 11.7 20.0-40.0 L [facility] HospitalFpuayihUWOPYMJWMQ1107-87-50 20:00:00 Test Item Value Reference Range Interpretation Comments MPV (test code = MPV) 10.8 7.4-10.4 H [facility] HospitalCdzkkmlWSHKKISHYD0671-36-47 20:00:00 Test Item Value Reference Range Interpretation Comments Platelet (test code = Platelet) 161 133-450 N [facility] HospitalHyrsprsJLCVRQXMEF9064-39-30 20:00:00 Test Item Value Reference Range Interpretation Comments MCHC (test code = MCHC) 35.6 32.0-36.0 N [facility] HospitalEnnovasYKQWGZGUWD8508-37-41 20:00:00 Test Item Value Reference Range Interpretation Comments RDW (test code = RDW) 12.4 11.5-14.5 N [facility] HospitalNqkloivCMAFNPYENI0422-24-00 20:00:00 Test Item Value Reference Range Interpretation Comments MCH (test code = MCH) 30.7 pg 27.0-31.0 N [facility] HospitalFwyhtziPQBXMKEUEV4240-25-43 20:00:00 Test Item Value Reference Range Interpretation Comments MCV (test code = MCV) 86.1 81.0-99.0 N [facility] HospitalApkkkuhPDUREZXBAS0068-46-94 20:00:00 Test Item Value Reference Range Interpretation Comments Hct (test code = Hct) 33.6 36.0-48.0 L [facility] HospitalGuhozooYRMOLVNFXJ4454-15-03 20:00:00 Test Item Value Reference Range Interpretation Comments Hgb (test code = Hgb) 12.0 12.0-16.0 N [facility] HospitalGbvihhhWFDSWUIMPX7419-01-76 20:00:00 Test Item Value Reference Range Interpretation Comments RBC (test code = RBC) 3.90 4.20-5.40 L [facility] HospitalImzqnpnSDJJZVUWGG1839-72-25 20:00:00 Test Item Value Reference Range Interpretation Comments WBC (test code = WBC) 6.6 3.7-10.4 N [facility]CuzldvaBYFBWZQOA0263-33-14 19:51:00 Test Item Value Reference Range Interpretation Comments UDS Note (test code = See Note UDS Note) 5*NA*(11/28/2011 14:51:00) [facility] CenterPhatbeeCJVGPPBQF2664-72-71 19:51:00 Test Item Value Reference Range Interpretation Comments U Phencyc Scr (test Negative code = U Phencyc Scr) *NA*(11/28/2011 14:51:00) [facility] CenterNsvbvoiGLJTOIVPG1991-37-70 19:51:00 Test Item Value Reference Range Interpretation Comments U Kelly Scr (test code Negative *NA*(11/28/2011 = U Kelly Scr) 14:51:00) [facility] CenterCftiecnSEQIGKNBQ9910-02-05 19:51:00 Test Item Value Reference Range Interpretation Comments U Amph Scr (test code Negative *NA*(11/28/2011 = U Amph Scr) 14:51:00) [facility] CenterKsquiifDAQQEMZCM8327-93-87 19:51:00 Test Item Value Reference Range Interpretation Comments U Opiate Scr (test Negative code = U Opiate Scr) *NA*(11/28/2011 14:51:00) [facility] CenterRljonuhZGXRLAYPT3903-90-95 19:51:00 Test Item Value Reference Range Interpretation Comments U Cocaine Scr (test Negative code = U Cocaine Scr) *NA*(11/28/2011 14:51:00) [facility] CenterVeqytkqLYVQAWHYR5726-14-77 19:51:00 Test Item Value Reference Range Interpretation Comments U Cannab Scr (test Negative code = U Cannab Scr) *NA*(11/28/2011 14:51:00) [facility] CenterLakkvilWGHDNEGOL1912-49-78 19:51:00 Test Item Value Reference Range Interpretation Comments U Benzodia Scr (test Negative code = U Benzodia Scr) *NA*(11/28/2011 14:51:00) [facility] GLUCOSE XOICFMD0811-46-66 16:20:00 Test Item Value Reference Range Interpretation Comments Comment1 (test code = Comment1) Ravi RN/ [facility] GLUCOSE EFMESLM7908-91-89 16:20:00 Test Item Value Reference Range Interpretation Comments Gluc POC Lifscn (test code = Gluc POC 328 70-99 H Lifscn) [facility]inteJmxkyqhNZOGKEIWE1158-01-95 15:30:00 Test Item Value Reference Range Interpretation Comments U Preg (test code = U Negative (09/18/2011 N Preg) 10:30:00) [facility]inteRzolgljBJPTGFCAJZ8475-61-18 15:30:00 Test Item Value Reference Range Interpretation Comments UA WBC (test code = UA None Seen (09/18/2011 N WBC) 10:30:00) [facility] HospitalXpjprgeLDBJMLQXTC9861-52-52 15:30:00 Test Item Value Reference Range Interpretation Comments UA RBC (test None Seen See_Comment N [Automated mes pastor] code = UA RBC) (09/18/2011 The system ich 10:30:00) generated this result transmitted ref erence range: <=2. The reference range was not used to int erpret this result as normal/abnormal . [facility] PointeZphkklnVTWAZRFSPA6803-96-45 15:30:00 Test Item Value Reference Range Interpretation Comments UA Bacteria (test code = None Seen (09/18/2011 N UA Bacteria) 10:30:00) [facility] PointeKmwfmthYULKHBLSPE5835-00-31 15:30:00 Test Item Value Reference Range Interpretation Comments UA Amorph Destiny (test Few /HPF A code = UA Amorph Destiny) *ABN*(09/18/2011 10:30:00) [facility]inteMquxbicTZGQLXVZWN7486-81-88 15:30:00 Test Item Value Reference Range Interpretation Comments Micro? (test code = Performed (09/18/2011 N Micro?) 10:30:00) [facility] HospitalHiepyktJLJOQQKNAA1013-84-79 15:30:00 Test Item Value Reference Range Interpretation Comments UA Sq Epi (test code = Rare /LPF (09/18/2011 N UA Sq Epi) 10:30:00) [facility] PointeSeqnxjgYXBNFZLTOR7662-89-63 15:30:00 Test Item Value Reference Range Interpretation Comments UA Ketones (test code = 15 mg/dL A UA Ketones) *ABN*(09/18/2011 10:30:00) [facility]VygvuayFHYCNHGXRA1182-97-01 15:30:00 Test Item Value Reference Range Interpretation Comments UA Glucose (test code = >=1000 mg/dL A UA Glucose) *ABN*(09/18/2011 10:30:00) [facility]lineJvsabfzJDCLESDRWH7427-64-21 15:30:00 Test Item Value Reference Range Interpretation Comments UA Protein (test code = Trace A UA Protein) *ABN*(09/18/2011 10:30:00) [facility]lineSgigrxqUTWVKGLQRN0064-15-07 15:30:00 Test Item Value Reference Range Interpretation Comments UA Urobilinogen (test code = UA 0.2 0.1-1.0 N Urobilinogen) [facility]lineZmtqttiYTLAQXJVPE2932-67-67 15:30:00 Test Item Value Reference Range Interpretation Comments UA Blood (test code = Negative (09/18/2011 N UA Blood) 10:30:00) [facility]lineXtpaownXLQIPQBFQP0879-02-75 15:30:00 Test Item Value Reference Range Interpretation Comments UA Bili (test code = Negative *NA*(09/18/2011 UA Bili) 10:30:00) [facility]lineJwsyyowNFRKRTQRTF4229-89-35 15:30:00 Test Item Value Reference Range Interpretation Comments UA Leuk Est (test Negative (09/18/2011 N code = UA Leuk Est) 10:30:00) [facility]lineOchwamaWXPKAXUCUW1962-60-65 15:30:00 Test Item Value Reference Range Interpretation Comments UA Nitrite (test code Negative (09/18/2011 N = UA Nitrite) 10:30:00) [facility]lineNmjrckrNYWNIJZFPW7239-17-67 15:30:00 Test Item Value Reference Range Interpretation Comments UA pH (test code = UA pH) 7.5 1 5.0-8.0 N [facility]lineLnckyfpOVQNFGSGAU8494-53-46 15:30:00 Test Item Value Reference Range Interpretation Comments UA Spec Grav (test code = UA Spec 1.010 1 N Grav) [facility]lineFnhlxdrYUWDWHIZKZ6065-63-43 15:30:00 Test Item Value Reference Range Interpretation Comments UA Turbidity (test code Slight Cloudy N = UA Turbidity) (09/18/2011 10:30:00) [facility]inteMvdfsfrPSGDIRPSAK4767-32-38 15:30:00 Test Item Value Reference Range Interpretation Comments UA Color (test code = Yellow *NA*(09/18/2011 UA Color) 10:30:00) [facility] CenterMgcgloeIGUNKJTRY5268-63-72 14:07:00 Test Item Value Reference Range Interpretation Comments Phosphorus (test code = Phosphorus) 4.4 2.5-4.5 N [facility] CenterVcihprfENVCYPQLG3917-82-79 14:07:00 Test Item Value Reference Range Interpretation Comments Magnesium Lvl (test code = Magnesium 1.6 1.8-2.4 L Lvl) [facility] YJRVBNG1977-27-71 14:01:00 Test Item Value Reference Range Interpretation Comments Gluc POC Lifscn (test code = Gluc POC no gt 70-99 A Lifscn) [facility] CenterXxibawqXKVYSKGGS9045-98-09 13:52:00 Test Item Value Reference Range Interpretation Comments pO2 Roberth (test code = pO2 Roberth) 24 20-49 N [facility] CenterPiujxuxIDEBOFNTY4984-53-59 13:52:00 Test Item Value Reference Range Interpretation Comments HCO3 Roberth (test code = HCO3 Roberth) 32.0 22.0-26.0 H [facility] CenterGpxptfuQYYXLWYNA6373-88-61 13:52:00 Test Item Value Reference Range Interpretation Comments pCO2 Roberth (test code = pCO2 Roberth) 44 38-52 N [facility] CenterCqlyupaAOYWKEUZH5573-30-74 13:52:00 Test Item Value Reference Range Interpretation Comments BE Roberth (test code = 7 See_Comment H [Automa rohit message] The BE Roberth) system which ge nerated this result transmit rohit reference range : <=2. The reference range was not used to interpr et this result as reji l/abnormal. [facility] CenterOwmosttNLLRLPTSL5952-68-13 13:52:00 Test Item Value Reference Range Interpretation Comments O2 Sat Roberth (test code = O2 Sat Roberth) 48.0 40.0-70.0 N [facility] CenterHapowtdMIUWNQPWD8442-41-30 13:52:00 Test Item Value Reference Range Interpretation Comments Temp Roberth (test code = Temp Roberth) 37.0 [facility] CenterEfzjgobNXFWYMLJZ4278-28-59 13:52:00 Test Item Value Reference Range Interpretation Comments pH Roberth (test code = pH Roberth) 7.47 7.28-7.42 H [facility] CenterLuisbwbMIAATNAYD5182-76-93 13:52:00 Test Item Value Reference Range Interpretation Comments Calcium Lvl (test code = Calcium Lvl) 10.1 8.5-10.5 N [facility] CenterEckbfqdOWQVDHGYF3409-82-88 13:52:00 Test Item Value Reference Range Interpretation Comments Chloride Lvl (test code = Chloride Lvl) 92 95-109 L [facility] CenterZshgbwhLAUMOOIGO8269-99-08 13:52:00 Test Item Value Reference Range Interpretation Comments CO2 (test code = CO2) 30 24-32 N [facility] CenterDqmqlozWOIKEGQVD4593-91-84 13:52:00 Test Item Value Reference Range Interpretation Comments Potassium Lvl (test code = Potassium 3.5 3.5-5.1 N Lvl) [facility] CenterOrgxmhdMPHJRTOXL9586-98-01 13:52:00 Test Item Value Reference Range Interpretation Comments Sodium Lvl (test code = Sodium Lvl) 133 135-145 L [facility] CenterUzsmqgdXGSFQNWGB2040-13-70 13:52:00 Test Item Value Reference Range Interpretation Comments Creatinine Lvl (test code = Creatinine 1.3 0.5-1.4 N Lvl) [facility] CenterEmxmibtFABZKBHGI5894-02-55 13:52:00 Test Item Value Reference Range Interpretation Comments Glucose Lvl (test code = Glucose Lvl) 383 70-99 H [facility] CenterOhlzpqwXOPCJODSZ2717-57-90 13:52:00 Test Item Value Reference Range Interpretation Comments BUN (test code = BUN) 17 7-22 N [facility] CenterSbrcxbjCDKDUYUYJ8230-13-44 13:52:00 Test Item Value Reference Range Interpretation Comments AGAP (test code = AGAP) 14.5 10.0-20.0 N [facility] HospitalNsbhhxlJAJJRLHELE0845-60-24 13:52:00 Test Item Value Reference Range Interpretation Comments MPV (test code = MPV) 12.0 7.4-10.4 H [facility] HospitalWjdefdzAFROQGIBGT6365-46-49 13:52:00 Test Item Value Reference Range Interpretation Comments Platelet (test code = Platelet) 226 133-450 N [facility] HospitalButjtkgRPBLGTSXUG7859-64-81 13:52:00 Test Item Value Reference Range Interpretation Comments MCHC (test code = MCHC) 33.7 32.0-36.0 N [facility] HospitalTptnlunESELRSEHTG4398-85-03 13:52:00 Test Item Value Reference Range Interpretation Comments MCH (test code = MCH) 28.5 pg 27.0-31.0 N [facility] HospitalDzbidtfEXFONAHOLF8200-62-03 13:52:00 Test Item Value Reference Range Interpretation Comments RDW (test code = RDW) 15.1 11.5-14.5 H [facility] HospitalIzdxfuzEHUMWOXNQO5428-95-59 13:52:00 Test Item Value Reference Range Interpretation Comments MCV (test code = MCV) 84.6 81.0-99.0 N [facility] HospitalUihckgcNBTQHPQRWK7936-33-97 13:52:00 Test Item Value Reference Range Interpretation Comments Hct (test code = Hct) 36.4 36.0-48.0 N [facility] HospitalVqjtryaPQZNMFRKNR5842-28-83 13:52:00 Test Item Value Reference Range Interpretation Comments Hgb (test code = Hgb) 12.3 12.0-16.0 N [facility] HospitalCsfngaaKPBDZUBHOA5092-45-86 13:52:00 Test Item Value Reference Range Interpretation Comments RBC (test code = RBC) 4.30 4.20-5.40 N [facility] HospitalLwyutuzHTETOCOUIW2929-45-41 13:52:00 Test Item Value Reference Range Interpretation Comments WBC (test code = WBC) 11.7 3.7-10.4 H [facility] HospitalNggsapbMVCEWQAYXP9407-21-27 13:52:00 Test Item Value Reference Range Interpretation Comments Monocytes (test code = Monocytes) 2.9 2.0-12.0 N [facility] HospitalOiljaljWOIZWDKTIO5241-28-05 13:52:00 Test Item Value Reference Range Interpretation Comments Eosinophils (test code = 0.2 See_Comment N [A utomated message] The Eosinophils) system which ge nerated this result tra nsmitted reference range : <=4.0. The reference r leo was not used to int erpret this result as normal/abnormal . [facility] HospitalQdzaincBWRSYDAKWX2264-21-08 13:52:00 Test Item Value Reference Range Interpretation Comments Basophils (test code = 0.0 See_Comment N [Aut omated message] The Basophils) system which ge nerated this result tra nsmitted reference range : <=1.0. The reference r leo was not used to int erpret this result as normal/abnormal . [facility] HospitalSdocaspLKZOAZMZHU3241-59-16 13:52:00 Test Item Value Reference Range Interpretation Comments Eosinophils # (test code 0.0 See_Comment N [A utomated message] The = Eosinophils #) system whic h generated this result tra nsmitted reference range : <=0.5. The reference r leo was not used to int erpret this result as normal/abnormal . [facility] HospitalKcysmxxFSUAVLEREQ9013-06-04 13:52:00 Test Item Value Reference Range Interpretation Comments Monocytes # (test code 0.3 See_Comment N [Aut omated message] The = Monocytes #) system which generated this result tra nsmitted reference range : <=0.8. The reference r leo was not used to int erpret this result as normal/abnormal . [facility] HospitalJqrlvzpHAHWAPWLKT8799-78-36 13:52:00 Test Item Value Reference Range Interpretation Comments Segs (test code = Segs) 92.0 45.0-75.0 H [facility] HospitalJthguydRFRMOJJTUL0722-43-75 13:52:00 Test Item Value Reference Range Interpretation Comments Lymphocytes (test code = Lymphocytes) 4.9 20.0-40.0 L [facility] HospitalJfgzgtrWWALZCTPAY9321-47-36 13:52:00 Test Item Value Reference Range Interpretation Comments Spherocyte (test code = Rare A Spherocyte) *ABN*(09/18/2011 08:52:00) [facility] HospitalYtfpjtjOWXEJPFQST9847-21-18 13:52:00 Test Item Value Reference Range Interpretation Comments Large Plt (test code = Slight *ABN*(09/18/2011 A Large Plt) 08:52:00) [facility] HospitalRlsnzfeHAZVFDORXD6936-57-51 13:52:00 Test Item Value Reference Range Interpretation Comments Microcyte (test code = 1+ *ABN*(09/18/2011 A Microcyte) 08:52:00) [facility] HospitalLppakzyYFKYBRFPLX4344-48-54 13:52:00 Test Item Value Reference Range Interpretation Comments Schistocyte (test code = Schistocyte) Rare [facility] HospitalHtnfcisQSYWTWPDAE1035-44-55 13:52:00 Test Item Value Reference Range Interpretation Comments Macrocyte (test code = 1+ *ABN*(09/18/2011 A Macrocyte) 08:52:00) [facility] HospitalUezuggyXEPILWHBGA3589-77-68 13:52:00 Test Item Value Reference Range Interpretation Comments Lymphocytes # (test code = Lymphocytes 0.6 1.0-5.5 L #) [facility]inteWzqqvmbAZUPPDMDYK3353-62-26 13:52:00 Test Item Value Reference Range Interpretation Comments Segs-Bands # (test code = Segs-Bands #) 10.8 1.5-8.1 H [facility]inteMhysfrbFYSPQNEJZA6329-48-51 13:52:00 Test Item Value Reference Range Interpretation Comments Basophils # (test code 0.0 See_Comment N [Aut omated message] The = Basophils #) system which generated this result tra nsmitted reference range : <=0.2. The reference r leo was not used to int erpret this result as normal/abnormal . [facility]XqczdqfIVWVAROAQR9901-[facility]-96 13:52:00 Test Item Value Reference Range Interpretation Comments Anisocyte (test code = 1+ *ABN*(09/18/2011 A Anisocyte) 08:52:00) [facility] PointeCamofdoDSNYRCORBJ5106-98-69 13:52:00 Test Item Value Reference Range Interpretation Comments CDC-HIV 1/2 Ab (test Negative *NA*(09/18/2011 code = CDC-HIV 1/2 08:52:00) Ab) [facility] GLUCOSE QBSLZEZ2967-08-71 17:34:00 Test Item Value Reference Range Interpretation Comments Gluc POC Lifscn (test code = Gluc POC 215 70-99 H Lifscn) [facility] GLUCOSE OHDOQUY7593-16-51 17:34:00 Test Item Value Reference Range Interpretation Comments Comment1 (test code = Comment1) Notify RN/ [facility] GLUCOSE SNDCKJN7824-28-21 11:43:00 Test Item Value Reference Range Interpretation Comments Comment1 (test code = Comment1) Notify RN/ [facility] GLUCOSE ILHUVKW5927-18-10 11:43:00 Test Item Value Reference Range Interpretation Comments Gluc POC Lifscn (test code = Gluc POC 91 65-110 N Lifscn) [facility] GLUCOSE HVSTMDT0730-76-42 02:45:00 Test Item Value Reference Range Interpretation Comments Comment1 (test code = Comment1) Notify RN/ [facility] GLUCOSE YIPJYRR8785-28-15 02:45:00 Test Item Value Reference Range Interpretation Comments Gluc POC Lifscn (test code = Gluc POC 148 65-110 H Lifscn) [facility] CenterOrubkdiLPDFYALMD4933-27-95 08:47:00 Test Item Value Reference Range Interpretation Comments Sodium Lvl (test code = Sodium Lvl) 143 135-145 N [facility] CenterOxoegvhOFCYQWFGR0132-22-33 08:47:00 Test Item Value Reference Range Interpretation Comments Glucose Lvl (test code = Glucose Lvl) 105 [facility] CenterHpvenxpKUCFYMVPK7214-76-15 08:47:00 Test Item Value Reference Range Interpretation Comments CO2 (test code = CO2) 29 24-32 N [facility] CenterGpgemgnRIQQPOBJV1833-85-58 08:47:00 Test Item Value Reference Range Interpretation Comments Chloride Lvl (test code = Chloride Lvl) 103 95-109 N [facility] CenterKhmtducBQRTBUYOA4043-86-94 08:47:00 Test Item Value Reference Range Interpretation Comments BUN (test code = BUN) 10 7-22 N [facility] CenterRxjdbayIDPSYDBFI4032-64-71 08:47:00 Test Item Value Reference Range Interpretation Comments Potassium Lvl (test code = Potassium 3.8 3.5-5.1 N Lvl) [facility] CenterFfngvytJTMWXXWZN9890-53-75 08:47:00 Test Item Value Reference Range Interpretation Comments Creatinine Lvl (test code = Creatinine 0.6 0.5-1.4 N Lvl) [facility] CenterLjyvbifFEYNKYRPL5287-78-25 08:47:00 Test Item Value Reference Range Interpretation Comments Calcium Lvl (test code = Calcium Lvl) 8.5 8.5-10.5 N [facility] CenterZovitvoLULDBOKEH8520-74-15 08:47:00 Test Item Value Reference Range Interpretation Comments AGAP (test code = AGAP) 14.8 10.0-20.0 N [facility]SfnlcifRORYGNOTPT5231-97-05 08:47:00 Test Item Value Reference Range Interpretation Comments MCH (test code = MCH) 28.9 pg 27.0-31.0 N [facility] HospitalIobfdeeQNRKIQKRQI7870-53-27 08:47:00 Test Item Value Reference Range Interpretation Comments MCV (test code = MCV) 82.1 81.0-99.0 N [facility] HospitalXubnrpsDVIRPXYHPW8748-93-17 08:47:00 Test Item Value Reference Range Interpretation Comments Hct (test code = Hct) 25.9 36.0-48.0 L [facility] HospitalBvpjklzEWWEYWAQVF1166-44-05 08:47:00 Test Item Value Reference Range Interpretation Comments Platelet (test code = Platelet) 233 133-450 N [facility] HospitalBjsqthfUTLIDXPMJX1582-74-39 08:47:00 Test Item Value Reference Range Interpretation Comments RDW (test code = RDW) 14.5 11.5-14.5 N [facility] HospitalCgjorbwHZUGSVENEJ0236-00-36 08:47:00 Test Item Value Reference Range Interpretation Comments MCHC (test code = MCHC) 35.2 32.0-36.0 N [facility] HospitalHpvbokuONWFTIXPZO0769-72-96 08:47:00 Test Item Value Reference Range Interpretation Comments Hgb (test code = Hgb) 9.1 12.0-16.0 L [facility] HospitalExgevpzKDMGWUCXQI5937-29-63 08:47:00 Test Item Value Reference Range Interpretation Comments RBC (test code = RBC) 3.15 4.20-5.40 L [facility] HospitalHmunkksBOFVMJXKZX3552-47-36 08:47:00 Test Item Value Reference Range Interpretation Comments MPV (test code = MPV) 9.0 7.4-10.4 N [facility] HospitalVurlgrlLYHSBQWGZE0196-36-56 08:47:00 Test Item Value Reference Range Interpretation Comments WBC (test code = WBC) 6.3 3.7-10.4 N [facility] HospitalNfswlksUOAFZHPRKJ3803-70-60 08:47:00 Test Item Value Reference Range Interpretation Comments Eosinophils # (test code 0.0 See_Comment N [A utomated message] The = Eosinophils #) system [facility] h generated this result tra nsmitted reference range : <=0.5. The reference r leo was not used to int erpret this result as normal/abnormal . [facility] HospitalWoxmzyhDMDEBCPZRO3152-58-55 08:47:00 Test Item Value Reference Range Interpretation Comments Basophils # (test code 0.0 See_Comment N [Aut omated message] The = Basophils #) system which generated this result tra nsmitted reference range : <=0.2. The reference r leo was not used to int erpret this result as normal/abnormal . [facility] HospitalSrkhbmpVEJLCCATQG3865-87-44 08:47:00 Test Item Value Reference Range Interpretation Comments Segs-Bands # (test code = Segs-Bands #) 3.8 1.5-8.1 N [facility] HospitalHpgblejHSEFOTBLDN7732-16-29 08:47:00 Test Item Value Reference Range Interpretation Comments Lymphocytes # (test code = Lymphocytes 2.0 1.0-5.5 N #) [facility] HospitalAgxxvnfCBZGIGCLSK0317-20-98 08:47:00 Test Item Value Reference Range Interpretation Comments Basophils (test code = 0.5 See_Comment N [Aut omated message] The Basophils) system which ge nerated this result tra nsmitted reference range : <=1.0. The reference r leo was not used to int erpret this result as normal/abnormal . [facility] HospitalAvecjigPTZRQHPXMV1757-19-23 08:47:00 Test Item Value Reference Range Interpretation Comments Eosinophils (test code = 0.7 See_Comment N [A utomated message] The Eosinophils) system which ge nerated this result tra nsmitted reference range : <=4.0. The reference r leo was not used to int erpret this result as normal/abnormal . [facility] HospitalUldgpruBNHFLRLDPV0258-19-23 08:47:00 Test Item Value Reference Range Interpretation Comments Monocytes (test code = Monocytes) 6.2 2.0-12.0 N [facility] HospitalTgdvtvhAXNHIKMSES8582-93-30 08:47:00 Test Item Value Reference Range Interpretation Comments Segs (test code = Segs) 61.1 45.0-75.0 N [facility] HospitalXaeyaurQQDZILUVUI3020-06-29 08:47:00 Test Item Value Reference Range Interpretation Comments Lymphocytes (test code = Lymphocytes) 31.5 20.0-40.0 N [facility] HospitalNbbrgzdWUCJXJFCMJ4685-23-30 08:47:00 Test Item Value Reference Range Interpretation Comments Monocytes # (test code 0.4 See_Comment N [Aut omated message] The = Monocytes #) system which generated this result tra nsmitted reference range : <=0.8. The reference r leo was not used to int erpret this result as normal/abnormal . [facility]UfukffjFNCMMKUEA4504-02-56 10:54:00 Test Item Value Reference Range Interpretation Comments CO2 (test code = CO2) 27 24-32 N [facility] CenterDrpikntLNKAPNBFZ7365-74-34 10:54:00 Test Item Value Reference Range Interpretation Comments Chloride Lvl (test code = Chloride Lvl) 104 95-109 N [facility] CenterWnzdzstWAVQCHEEH8761-82-85 10:54:00 Test Item Value Reference Range Interpretation Comments Creatinine Lvl (test code = Creatinine 0.5 0.5-1.4 N Lvl) [facility] CenterEboxoxrKCJLJQXHV5817-01-87 10:54:00 Test Item Value Reference Range Interpretation Comments BUN (test code = BUN) 10 7-22 N [facility] CenterYxsbhdqXRPNZLTUR7870-37-23 10:54:00 Test Item Value Reference Range Interpretation Comments Potassium Lvl (test code = Potassium 4.1 3.5-5.1 N Lvl) [facility] CenterMpxpgwmRFQRIBEOI4209-04-09 10:54:00 Test Item Value Reference Range Interpretation Comments Sodium Lvl (test code = Sodium Lvl) 141 135-145 N [facility] CenterZwtewwpUJKMVLEQA2910-65-99 10:54:00 Test Item Value Reference Range Interpretation Comments Glucose Lvl (test code = Glucose Lvl) 83 [facility] CenterVjqvydcLEVBOQGCP7482-19-00 10:54:00 Test Item Value Reference Range Interpretation Comments Calcium Lvl (test code = Calcium Lvl) 8.4 8.5-10.5 L [facility] CenterTsibgcgXZEAMZSKP7777-91-88 10:54:00 Test Item Value Reference Range Interpretation Comments AGAP (test code = AGAP) 14.1 10.0-20.0 N [facility] HospitalXrhcozaOHPUBJOXFW5230-95-98 10:54:00 Test Item Value Reference Range Interpretation Comments Hct (test code = Hct) 35.5 36.0-48.0 L [facility] HospitalBczvyyyNMMEAQPRAX0859-03-39 10:54:00 Test Item Value Reference Range Interpretation Comments WBC (test code = WBC) 4.7 3.7-10.4 N [facility] HospitalLgswobsKUULDZJBRC5967-15-16 10:54:00 Test Item Value Reference Range Interpretation Comments MCV (test code = MCV) 92.6 81.0-99.0 N [facility] HospitalGznxmatEEGQFQBINX6440-35-22 10:54:00 Test Item Value Reference Range Interpretation Comments MCH (test code = MCH) 31.4 pg 27.0-31.0 H [facility] HospitalMgcpfuvNVSJJVNQVU2002-40-37 10:54:00 Test Item Value Reference Range Interpretation Comments RBC (test code = RBC) 3.84 4.20-5.40 L [facility] HospitalCrwqzxwBVFQHQZUSW8907-08-27 10:54:00 Test Item Value Reference Range Interpretation Comments Hgb (test code = Hgb) 12.1 12.0-16.0 N [facility] HospitalCjomdisTTTDSBJNBN1862-59-03 10:54:00 Test Item Value Reference Range Interpretation Comments Platelet (test code = Platelet) 287 133-450 N [facility] HospitalKyrlzsqRQYRKXISRQ4945-43-78 10:54:00 Test Item Value Reference Range Interpretation Comments RDW (test code = RDW) 12.7 11.5-14.5 N [facility] HospitalWihyqyhYCOIQICVNC5437-87-90 10:54:00 Test Item Value Reference Range Interpretation Comments MCHC (test code = MCHC) 33.9 32.0-36.0 N [facility] HospitalWngkijxJFEMRTHIRB4369-51-96 10:54:00 Test Item Value Reference Range Interpretation Comments MPV (test code = MPV) 7.2 7.4-10.4 L [facility] HospitalCkogblkAMRPRVXUEH1400-77-50 10:54:00 Test Item Value Reference Range Interpretation Comments INR (test code = INR) 0.95 0.85-1.17 N [facility] HospitalHmbhqlmYDZCEAYYGG2018-50-34 10:54:00 Test Item Value Reference Range Interpretation Comments PT (test code = PT) 12.7 s 12.0-14.7 N [facility] HospitalZvxsdnfZXTQWYZFHE2647-74-35 10:54:00 Test Item Value Reference Range Interpretation Comments PTT (test code = PTT) 28.5 s 22.9-35.8 N [facility] HospitalPiojsoyRXZTDOBUVF1765-96-93 10:54:00 Test Item Value Reference Range Interpretation Comments Eosinophils # (test code 0.1 See_Comment N [A utomated message] The = Eosinophils #) system whic h generated this result tra nsmitted reference range : <=0.5. The reference r leo was not used to int erpret this result as normal/abnormal . [facility] HospitalRhmyyjwPRDXFXQLJI0247-99-64 10:54:00 Test Item Value Reference Range Interpretation Comments Basophils # (test code 0.0 See_Comment N [Aut omated message] The = Basophils #) system which generated this result tra nsmitted reference range : <=0.2. The reference r leo was not used to int erpret this result as normal/abnormal . [place] 749122-03-19 10:54:00 Test Item Value Reference Range Interpretation Comments Basophils (test code = 0.4 See_Comment N [Aut omated message] The Basophils) system which ge nerated this result tra nsmitted reference range : <=1.0. The reference r leo was not used to int erpret this result as normal/abnormal . [facility] HospitalOwshogjWEGSDNJIYQ4286-17-02 10:54:00 Test Item Value Reference Range Interpretation Comments Segs-Bands # (test code = Segs-Bands #) 2.1 1.5-8.1 N [facility] HospitalXtemwaaICDXHGRPTR6196-14-05 10:54:00 Test Item Value Reference Range Interpretation Comments Monocytes (test code = Monocytes) 9.0 2.0-12.0 N [facility] HospitalErfmjdjBPICYJOSND4273-11-85 10:54:00 Test Item Value Reference Range Interpretation Comments Eosinophils (test code = 2.4 See_Comment N [A utomated message] The Eosinophils) system which ge nerated this result tra nsmitted reference range : <=4.0. The reference r leo was not used to int erpret this result as normal/abnormal . [facility] HospitalKtmgfdaSTWCBVRYXC8322-84-88 10:54:00 Test Item Value Reference Range Interpretation Comments Monocytes # (test code 0.4 See_Comment N [Aut omated message] The = Monocytes #) system which generated this result tra nsmitted reference range : <=0.8. The reference r leo was not used to int erpret this result as normal/abnormal . [facility] HospitalKzjbcheERZFPAWIWB0275-01-95 10:54:00 Test Item Value Reference Range Interpretation Comments Lymphocytes # (test code = Lymphocytes 2.0 1.0-5.5 N #) [facility] HospitalKxlabkbVESBRMOMOG4051-76-06 10:54:00 Test Item Value Reference Range Interpretation Comments Lymphocytes (test code = Lymphocytes) 42.8 20.0-40.0 H [facility] HospitalJpwqxktGGFGOGDGVH3959-32-68 10:54:00 Test Item Value Reference Range Interpretation Comments Segs (test code = Segs) 45.4 45.0-75.0 N [facility] CenterQeglfvkJAPMZEBOA3747-55-58 10:02:00 Test Item Value Reference Range Interpretation Comments Chloride Lvl (test code = Chloride Lvl) 105 95-109 N [facility] CenterYbnpdcyQIRTDHAVB1620-11-72 10:02:00 Test Item Value Reference Range Interpretation Comments Potassium Lvl (test code = Potassium 4.1 3.5-5.1 N Lvl) [facility] CenterFvujreqWFUNJRMGM9184-08-00 10:02:00 Test Item Value Reference Range Interpretation Comments Sodium Lvl (test code = Sodium Lvl) 143 135-145 N [facility] CenterXklekekWKNDFPYZV8463-65-10 10:02:00 Test Item Value Reference Range Interpretation Comments CO2 (test code = CO2) 29 24-32 N [facility] CenterBhotcfvVKZRHAOGQ4029-39-77 10:02:00 Test Item Value Reference Range Interpretation Comments Calcium Lvl (test code = Calcium Lvl) 8.7 8.5-10.5 N [facility] CenterHmtiowsRWEYHXEAZ4383-43-66 10:02:00 Test Item Value Reference Range Interpretation Comments BUN (test code = BUN) 6 7-22 L [facility] CenterLoowyjeMKWLLYRSP3194-36-02 10:02:00 Test Item Value Reference Range Interpretation Comments Creatinine Lvl (test code = Creatinine 0.6 0.5-1.4 N Lvl) [facility] CenterPgsjtywVPSPFWSGE7271-05-98 10:02:00 Test Item Value Reference Range Interpretation Comments Glucose Lvl (test code = Glucose Lvl) 118 [facility] CenterMnqxazaXDZLTCBWG1863-58-17 10:02:00 Test Item Value Reference Range Interpretation Comments AGAP (test code = AGAP) 13.1 10.0-20.0 N [facility] HospitalWxexnfuTHHXFUKWZX4250-58-04 10:02:00 Test Item Value Reference Range Interpretation Comments Basophils # (test code 0.0 See_Comment N [Aut omated message] The = Basophils #) system which generated this result tra nsmitted reference range : <=0.2. The reference r leo was not used to int erpret this result as normal/abnormal . [facility] HospitalQnayjctALECALPLYV0868-60-53 10:02:00 Test Item Value Reference Range Interpretation Comments Monocytes # (test code 0.3 See_Comment N [Aut omated message] The = Monocytes #) system which generated this result tra nsmitted reference range : <=0.8. The reference r leo was not used to int erpret this result as normal/abnormal . [facility] HospitalXtizgylUDVEXJIDEK4896-69-84 10:02:00 Test Item Value Reference Range Interpretation Comments Eosinophils # (test code 0.1 See_Comment N [A utomated message] The = Eosinophils #) system whic h generated this result tra nsmitted reference range : <=0.5. The reference r leo was not used to int erpret this result as normal/abnormal . [facility] HospitalHzaxcmfAZAVLMIUQG7808-57-57 10:02:00 Test Item Value Reference Range Interpretation Comments Segs-Bands # (test code = Segs-Bands #) 2.8 1.5-8.1 N [facility] HospitalWzbqbgvFTQIUMQXBE4054-43-22 10:02:00 Test Item Value Reference Range Interpretation Comments Lymphocytes # (test code = Lymphocytes 1.7 1.0-5.5 N #) [facility] HospitalAxbkhvuRDSMVSSGQK5194-57-07 10:02:00 Test Item Value Reference Range Interpretation Comments Basophils (test code = 0.6 See_Comment N [Aut omated message] The Basophils) system which ge nerated this result tra nsmitted reference range : <=1.0. The reference r leo was not used to int erpret this result as normal/abnormal . [facility] HospitalHwbfapgZDNOIFROFF7115-13-28 10:02:00 Test Item Value Reference Range Interpretation Comments Monocytes (test code = Monocytes) 6.9 2.0-12.0 N [facility] HospitalSbxrxjoHVPYZGUASM7341-04-20 10:02:00 Test Item Value Reference Range Interpretation Comments Eosinophils (test code = 2.0 See_Comment N [A utomated message] The Eosinophils) system which ge nerated this result tra nsmitted reference range : <=4.0. The reference r leo was not used to int erpret this result as normal/abnormal . [facility] HospitalGyftppvRUKYWOSDHK0107-33-47 10:02:00 Test Item Value Reference Range Interpretation Comments Segs (test code = Segs) 55.8 45.0-75.0 N [facility] HospitalHxxrbqsIWWCCVXAVL9105-96-99 10:02:00 Test Item Value Reference Range Interpretation Comments Lymphocytes (test code = Lymphocytes) 34.7 20.0-40.0 N [facility] HospitalHgwoknaWKSPAUUJNC5441-83-57 10:02:00 Test Item Value Reference Range Interpretation Comments PTT (test code = PTT) 32.2 s 22.9-35.8 N [facility] HospitalJroxmitYMNVFPMFWU1969-32-93 10:02:00 Test Item Value Reference Range Interpretation Comments PT (test code = PT) 13.3 s 12.0-14.7 N [facility] HospitalEhnnaxrEXXYKBTTIL7499-11-76 10:02:00 Test Item Value Reference Range Interpretation Comments INR (test code = INR) 1.01 0.85-1.17 N [facility] HospitalQznpihyCJRCKDDUXT7484-74-18 10:02:00 Test Item Value Reference Range Interpretation Comments Hct (test code = Hct) 27.5 36.0-48.0 L [facility] HospitalEjqyjplKRGWHPFLUE2505-73-92 10:02:00 Test Item Value Reference Range Interpretation Comments RBC (test code = RBC) 3.34 4.20-5.40 L [facility] HospitalKloriyiDZTAAICQGF7554-38-81 10:02:00 Test Item Value Reference Range Interpretation Comments Hgb (test code = Hgb) 9.7 12.0-16.0 L [facility] HospitalQrmjyxoWDRRVJJQNY7422-15-43 10:02:00 Test Item Value Reference Range Interpretation Comments WBC (test code = WBC) 5.0 3.7-10.4 N [facility] HospitalFtihkglISGGYYPKVY9405-44-25 10:02:00 Test Item Value Reference Range Interpretation Comments MPV (test code = MPV) 9.2 7.4-10.4 N [facility] HospitalNcyozxuHCFYDJYJEE8965-20-53 10:02:00 Test Item Value Reference Range Interpretation Comments Platelet (test code = Platelet) 240 133-450 N [facility] HospitalUiookrnAASTKZIKVL5107-82-06 10:02:00 Test Item Value Reference Range Interpretation Comments RDW (test code = RDW) 14.3 11.5-14.5 N [facility] HospitalPtwyaknVKPSKRTRGV8383-74-33 10:02:00 Test Item Value Reference Range Interpretation Comments MCHC (test code = MCHC) 35.2 32.0-36.0 N [facility] HospitalFotpzkzLADFLESTBK5210-24-24 10:02:00 Test Item Value Reference Range Interpretation Comments MCH (test code = MCH) 28.9 pg 27.0-31.0 N [facility] HospitalUclimvaUATAPNMAEJ1130-17-28 10:02:00 Test Item Value Reference Range Interpretation Comments MCV (test code = MCV) 82.1 81.0-99.0 N [facility] CenterXzcoqxfGRHROGBRT7639-02-05 09:24:00 Test Item Value Reference Range Interpretation Comments Magnesium Lvl (test code = Magnesium 2.1 1.8-2.4 N Lvl) [facility]IaanmqhCrqaqbjhfure6563-24-09 00:32:00 Test Item Value Reference Range Interpretation Comments Culture: Aspirate/Body Fluid/Tissue (test code = Culture: Aspirate/Body Fluid/Tissue) [facility] HospitalQroanrfYmapnuwbfgyu7500-60-56 00:32:00 Test Item Value Reference Range Interpretation Comments Culture: Anaerobic (test code = Culture: Anaerobic) [facility] CenterQmzvsjyXHHPRQKEP6060-56-71 17:10:00 Test Item Value Reference Range Interpretation Comments Temp Roberth (test code = Temp Roberth) 37.0 [facility] CenterXwcrfkwGQBUATHQA5228-11-04 17:10:00 Test Item Value Reference Range Interpretation Comments O2 Sat Roberth (test code = O2 Sat Roberth) 27.0 40.0-70.0 L [facility] CenterRquzpfoROGHZUGZR9880-40-60 17:10:00 Test Item Value Reference Range Interpretation Comments pCO2 Roberth (test code = pCO2 Roberth) 47 38-52 N [facility] CenterDnssxukAPMIXKBEV5900-91-62 17:10:00 Test Item Value Reference Range Interpretation Comments pH Roberth (test code = pH Roberth) 7.37 7.28-7.42 N [facility] CenterNciwwzsKIMGNYEWM1709-03-60 17:10:00 Test Item Value Reference Range Interpretation Comments BE Roberth (test code = 1 See_Comment N [Automa rohit message] The BE Roberth) system which ge nerated this result transmit rohit reference range : <=2. The reference range was not used to interpr et this result as reji l/abnormal. [facility] CenterSpymsgyGTHTXXGDM1011-29-37 17:10:00 Test Item Value Reference Range Interpretation Comments HCO3 Roberth (test code = HCO3 Roberth) 27.2 22.0-26.0 H [facility] CenterPlzetjcCDBGVCXVP7677-72-05 17:10:00 Test Item Value Reference Range Interpretation Comments pO2 Roberth (test code = pO2 Roberth) 19 20-49 L [facility] HospitalAuewaigKbrojpevgpzb8865-23-53 14:18:00 Test Item Value Reference Range Interpretation Comments Culture: Blood (test code = Culture: Blood) [facility] HospitalFkkwqglZaxbwydsucdo7917-79-85 14:18:00 Test Item Value Reference Range Interpretation Comments Culture: Wound/Abscess w/Gram Stain (test code = Culture: Wound/Abscess w/Gram Stain) [facility] CenterPgkqygeSYIVUQRGU8544-79-81 13:09:00 Test Item Value Reference Range Interpretation Comments Lactic Acid Lvl (test code = Lactic 1.0 0.5-2.2 N Acid Lvl) [facility] CenterBdrqqbhGCSDIENPR4710-92-84 12:20:00 Test Item Value Reference Range Interpretation Comments U Preg (test code = U Negative (09/01/2011 N Preg) 07:20:00) [facility]IvknezdOROFBBUULZ5755-04-77 12:20:00 Test Item Value Reference Range Interpretation Comments UA Sq Epi (test code Occasional /LPF N = UA Sq Epi) (09/01/2011 07:20:00) [facility]lineQpzlovyFHUTARYGMI5769-97-16 12:20:00 Test Item Value Reference Range Interpretation Comments UA Leuk Est (test Negative (09/01/2011 N code = UA Leuk Est) 07:20:00) [facility]lineTrgszyuGQFWBMBOCX1279-79-23 12:20:00 Test Item Value Reference Range Interpretation Comments UA Nitrite (test code Negative (09/01/2011 N = UA Nitrite) 07:20:00) [facility]lineHjdromxQNCFAFDPBP8725-07-62 12:20:00 Test Item Value Reference Range Interpretation Comments UA Urobilinogen (test code = UA 0.2 0.1-1.0 N Urobilinogen) [facility]lineZejgoaqKHYUURJKJX0238-22-96 12:20:00 Test Item Value Reference Range Interpretation Comments UA Blood (test code = Negative (09/01/2011 N UA Blood) 07:20:00) [facility]lineEdzskbzYVJTQATAEK1020-10-67 12:20:00 Test Item Value Reference Range Interpretation Comments UA Ketones (test code = >=80 mg/dL A UA Ketones) *ABN*(09/01/2011 07:20:00) [facility]lineHesrdosBKWVRQVZQI1097-24-46 12:20:00 Test Item Value Reference Range Interpretation Comments UA Protein (test code Negative (09/01/2011 N = UA Protein) 07:20:00) [facility]lineCdnuyvrAKOOJHMDTA3228-55-97 12:20:00 Test Item Value Reference Range Interpretation Comments UA pH (test code = UA pH) 6.0 1 5.0-8.0 N [facility] HospitalUzvongbETRKKRMPXZ9449-96-80 12:20:00 Test Item Value Reference Range Interpretation Comments UA Bili (test code = Negative (09/01/2011 N UA Bili) 07:20:00) [facility]lineKddonelZFHJYLDEEJ5331-00-19 12:20:00 Test Item Value Reference Range Interpretation Comments UA Glucose (test code = >=1000 mg/dL A UA Glucose) *ABN*(09/01/2011 07:20:00) [facility]lineYybsdabZZQKHUJJDB2037-75-23 12:20:00 Test Item Value Reference Range Interpretation Comments UA Spec Grav (test code = UA Spec 1.035 1 H Grav) [facility]lineTqcauokSNASMEKXCD4641-83-29 12:20:00 Test Item Value Reference Range Interpretation Comments UA Turbidity (test code = Clear (09/01/2011 N UA Turbidity) 07:20:00) [facility]lineWixubizKUCTEIMQVG3503-24-05 12:20:00 Test Item Value Reference Range Interpretation Comments UA Color (test code = Yellow *NA*(09/01/2011 UA Color) 07:20:00) [facility] CenterMzttgbwYESQQFJBV6769-62-62 08:00:00 Test Item Value Reference Range Interpretation Comments Lactic Acid Lvl (test code = Lactic 2.8 0.5-2.2 H Acid Lvl) [facility] CenterTceujeqTEGJDTQFD1995-94-02 07:47:00 Test Item Value Reference Range Interpretation Comments Magnesium Lvl (test code = Magnesium 1.5 1.8-2.4 L Lvl) [facility] HospitalDwemslzRFYTTHEBDK4121-09-35 07:47:00 Test Item Value Reference Range Interpretation Comments Polychrom (test code = Slight (09/01/2011 N Polychrom) 02:47:00) [facility] HospitalQkzifrjRWJMRKECJE5319-75-65 07:47:00 Test Item Value Reference Range Interpretation Comments Anisocyte (test code = 1+ *ABN*(09/01/2011 A Anisocyte) 02:47:00) [facility] HospitalPycwqflQHXLXTMXXZ7071-79-47 07:47:00 Test Item Value Reference Range Interpretation Comments Large Plt (test code = Slight *ABN*(09/01/2011 A Large Plt) 02:47:00) [facility] HospitalAfxzwnoATCKYKFBKU1661-14-53 07:47:00 Test Item Value Reference Range Interpretation Comments Tear Cell (test code = Tear Cell) Occasional [facility]inteAngjvcfEOUZXZPTRJ7733-87-39 07:47:00 Test Item Value Reference Range Interpretation Comments Elliptocyte (test code = Slight A Elliptocyte) *ABN*(09/01/2011 02:47:00) [facility] GLUCOSE MTIHPMG0367-12-31 17:02:00 Test Item Value Reference Range Interpretation Comments Comment1 (test code = Comment1) Notify RN/MD [facility] GLUCOSE VFJNDHA7155-41-22 17:02:00 Test Item Value Reference Range Interpretation Comments Gluc POC Lifscn (test code = Gluc POC 134 65-110 H Lifscn) [facility] GLUCOSE WRRWYRU3509-92-85 13:45:00 Test Item Value Reference Range Interpretation Comments Gluc POC Lifscn (test code = Gluc POC 182 65-110 H Lifscn) [facility] GLUCOSE SCMXQXC9589-38-56 13:45:00 Test Item Value Reference Range Interpretation Comments Comment1 (test code = Comment1) Notify RN/ [facility]inteCywilniPUMMNGKWM9194-85-16 10:22:00 Test Item Value Reference Range Interpretation Comments Phosphorus (test code = Phosphorus) 3.0 2.5-4.5 N [facility] PointeVxcqyipAPUCUCQDQ2337-54-34 10:22:00 Test Item Value Reference Range Interpretation Comments Magnesium Lvl (test code = Magnesium 1.8 1.8-2.4 N Lvl) [facility]WhmjomwGLDPQBEVX7337-32-02 10:22:00 Test Item Value Reference Range Interpretation Comments Chloride Lvl (test code = Chloride Lvl) 107 95-109 N [facility] PointeJpucygnUSQIVKEHR9735-19-16 10:22:00 Test Item Value Reference Range Interpretation Comments Potassium Lvl (test code = Potassium 3.0 3.5-5.1 A Lvl) [facility]HbocibqMBIQIFDLD7959-01-49 10:22:00 Test Item Value Reference Range Interpretation Comments Sodium Lvl (test code = Sodium Lvl) 141 135-145 N [facility]inteOdehjttNEABBTUAW5441-74-55 10:22:00 Test Item Value Reference Range Interpretation Comments Creatinine Lvl (test code = Creatinine 0.6 0.5-1.4 N Lvl) [facility]ctsnppCBELYVYKZ9654-59-19 10:22:00 Test Item Value Reference Range Interpretation Comments CO2 (test code = CO2) 23 24-32 L [facility] CenterRflmpolKJRHTJIOY9795-33-64 10:22:00 Test Item Value Reference Range Interpretation Comments Calcium Lvl (test code = Calcium Lvl) 7.3 8.5-10.5 L [facility] CenterTwweehpETPGWNUJO4575-41-30 10:22:00 Test Item Value Reference Range Interpretation Comments Glucose Lvl (test code = Glucose Lvl) 136 [facility] CenterYsryfajUEAXZDLMZ4421-83-70 10:22:00 Test Item Value Reference Range Interpretation Comments AGAP (test code = AGAP) 14.0 10.0-20.0 N [facility] CenterElgasquAUYSFLQAM4786-65-44 10:22:00 Test Item Value Reference Range Interpretation Comments BUN (test code = BUN) 5 7-22 L [facility] HospitalYtafeiwMVSVUZZHCM7378-82-90 10:22:00 Test Item Value Reference Range Interpretation Comments Segs (test code = Segs) 69.6 45.0-75.0 N [facility] HospitalOotlhfgSLVYELFJJK4286-85-32 10:22:00 Test Item Value Reference Range Interpretation Comments Lymphocytes (test code = Lymphocytes) 21.5 20.0-40.0 N [facility] HospitalXcppkfmSKGGUSLDTT6644-40-02 10:22:00 Test Item Value Reference Range Interpretation Comments Monocytes (test code = Monocytes) 7.6 2.0-12.0 N [facility] HospitalPqqbwhpKJRXFQGVRW4400-72-77 10:22:00 Test Item Value Reference Range Interpretation Comments Eosinophils (test code = 1.0 See_Comment N [A utomated message] The Eosinophils) system which ge nerated this result tra nsmitted reference range : <=4.0. The reference r leo was not used to int erpret this result as normal/abnormal . [facility] HospitalNdclribNISDZXEWTB3208-46-43 10:22:00 Test Item Value Reference Range Interpretation Comments Basophils (test code = 0.3 See_Comment N [Aut omated message] The Basophils) system which ge nerated this result tra nsmitted reference range : <=1.0. The reference r leo was not used to int erpret this result as normal/abnormal . [facility] HospitalIrdfepgAJLKWQJPCI2168-73-85 10:22:00 Test Item Value Reference Range Interpretation Comments Segs-Bands # (test code = Segs-Bands #) 4.8 1.5-8.1 N [facility] HospitalWhwweffXRRJVRQVGW8369-79-16 10:22:00 Test Item Value Reference Range Interpretation Comments Eosinophils # (test code 0.1 See_Comment N [A utomated message] The = Eosinophils #) system whic h generated this result tra nsmitted reference range : <=0.5. The reference r leo was not used to int erpret this result as normal/abnormal . [facility] HospitalGkckbljJFQTLJKUGN2222-83-90 10:22:00 Test Item Value Reference Range Interpretation Comments Lymphocytes # (test code = Lymphocytes 1.5 1.0-5.5 N #) [facility] HospitalBpmuziuCNVCGANPJM9220-03-01 10:22:00 Test Item Value Reference Range Interpretation Comments Monocytes # (test code 0.5 See_Comment N [Aut omated message] The = Monocytes #) system which generated this result tra nsmitted reference range : <=0.8. The reference r leo was not used to int erpret this result as normal/abnormal . [facility] HospitalTypjavhBQWGMIOOIM5875-91-75 10:22:00 Test Item Value Reference Range Interpretation Comments Basophils # (test code 0.0 See_Comment N [Aut omated message] The = Basophils #) system which generated this result tra nsmitted reference range : <=0.2. The reference r leo was not used to int erpret this result as normal/abnormal . [facility] HospitalOutkoucGJAHNRBPFG5924-03-87 10:22:00 Test Item Value Reference Range Interpretation Comments MPV (test code = MPV) 11.0 7.4-10.4 H [facility] HospitalXajzvqeBXUVNDAZOU2263-96-03 10:22:00 Test Item Value Reference Range Interpretation Comments Platelet (test code = Platelet) 161 133-450 N [facility] HospitalAevhovoEENVZNBETH2885-32-27 10:22:00 Test Item Value Reference Range Interpretation Comments MCH (test code = MCH) 29.6 pg 27.0-31.0 N [facility] HospitalXybduktBYLFKRJNDO0123-70-00 10:22:00 Test Item Value Reference Range Interpretation Comments MCHC (test code = MCHC) 35.4 32.0-36.0 N [facility] HospitalVzhhiigDMHTLRBIHN3045-85-98 10:22:00 Test Item Value Reference Range Interpretation Comments RDW (test code = RDW) 14.1 11.5-14.5 N [facility] HospitalAzgprblDRBVPLBAAS6506-25-22 10:22:00 Test Item Value Reference Range Interpretation Comments WBC (test code = WBC) 6.8 3.7-10.4 N [facility] HospitalAlebmavNNRWZXUOIK3445-04-75 10:22:00 Test Item Value Reference Range Interpretation Comments MCV (test code = MCV) 83.5 81.0-99.0 N [facility] HospitalUcymligQTWVWVXEBO5061-88-53 10:22:00 Test Item Value Reference Range Interpretation Comments RBC (test code = RBC) 4.44 4.20-5.40 N [facility] HospitalHhhrtjhKIJCXQEGQF5535-42-20 10:22:00 Test Item Value Reference Range Interpretation Comments Hgb (test code = Hgb) 13.1 12.0-16.0 N [facility] HospitalLsrflfeOFOYCELFQG2834-13-96 10:22:00 Test Item Value Reference Range Interpretation Comments Hct (test code = Hct) 37.1 36.0-48.0 N [facility] GLUCOSE AINJKWZ6611-25-75 02:20:00 Test Item Value Reference Range Interpretation Comments Comment1 (test code = Comment1) Notify RN/MD [facility] GLUCOSE DITYCQO6170-57-24 02:20:00 Test Item Value Reference Range Interpretation Comments Gluc POC Lifscn (test code = Gluc POC 332 65-110 H Lifscn) [facility] CenterNromwsnQANUGYTEC3121-17-71 09:47:00 Test Item Value Reference Range Interpretation Comments Phosphorus (test code = Phosphorus) 2.5 2.5-4.5 N [facility] CenterVcgwkpwMZBAMMTOQ4287-40-68 09:47:00 Test Item Value Reference Range Interpretation Comments Glucose Lvl (test code = Glucose Lvl) 201 [facility] CenterFnudygdDKAQBFEUG6163-16-59 09:47:00 Test Item Value Reference Range Interpretation Comments BUN (test code = BUN) 7 7-22 N [facility] CenterOlzqqdhUYHLHXVNX6715-44-93 09:47:00 Test Item Value Reference Range Interpretation Comments CO2 (test code = CO2) 19 24-32 L [facility] CenterJwdpfekIXAWHQVIX4896-93-82 09:47:00 Test Item Value Reference Range Interpretation Comments Creatinine Lvl (test code = Creatinine 0.3 0.5-1.4 L Lvl) [facility] CenterBjpxwyqCAEQXVVAQ9260-78-47 09:47:00 Test Item Value Reference Range Interpretation Comments Sodium Lvl (test code = Sodium Lvl) 137 135-145 N [facility] CenterFnrxpbxZYGUXTRZT8270-00-81 09:47:00 Test Item Value Reference Range Interpretation Comments Chloride Lvl (test code = Chloride Lvl) 103 95-109 N [facility] CenterGbqeqomYLWSFJYRE4461-34-47 09:47:00 Test Item Value Reference Range Interpretation Comments Potassium Lvl (test code = Potassium 3.6 3.5-5.1 N Lvl) [facility] CenterVytciwtBPZEMUDCH0427-35-45 09:47:00 Test Item Value Reference Range Interpretation Comments Calcium Lvl (test code = Calcium Lvl) 7.9 8.5-10.5 L [facility] CenterTjuwxfoMKXZYAUUK5141-33-90 09:47:00 Test Item Value Reference Range Interpretation Comments AGAP (test code = AGAP) 18.6 10.0-20.0 N [facility] CenterYwltpyiWHDOWGKIX8828-78-56 09:47:00 Test Item Value Reference Range Interpretation Comments Magnesium Lvl (test code = Magnesium 1.6 1.8-2.4 L Lvl) [facility] HospitalKqoihahEKMZKOJIHC2212-61-78 09:47:00 Test Item Value Reference Range Interpretation Comments Basophils # (test code 0.0 See_Comment N [Aut omated message] The = Basophils #) system which generated this result tra nsmitted reference range : <=0.2. The reference r leo was not used to int erpret this result as normal/abnormal . [facility] HospitalEdsmujdHLGMNZPXQA5360-07-08 09:47:00 Test Item Value Reference Range Interpretation Comments Eosinophils (test code = 0.4 See_Comment N [A utomated message] The Eosinophils) system which ge nerated this result tra nsmitted reference range : <=4.0. The reference r leo was not used to int erpret this result as normal/abnormal . [facility] HospitalArkbmubKGNKAMRGEC9569-70-66 09:47:00 Test Item Value Reference Range Interpretation Comments Basophils (test code = 0.5 See_Comment N [Aut omated message] The Basophils) system which ge nerated this result tra nsmitted reference range : <=1.0. The reference r leo was not used to int erpret this result as normal/abnormal . [facility] HospitalEwwjphiSLXPGUVPRM9381-05-20 09:47:00 Test Item Value Reference Range Interpretation Comments Segs-Bands # (test code = Segs-Bands #) 5.9 1.5-8.1 N [facility] HospitalYhhlrxhZZPVRIVAZM4667-48-04 09:47:00 Test Item Value Reference Range Interpretation Comments Lymphocytes # (test code = Lymphocytes 1.2 1.0-5.5 N #) [facility] HospitalVprixayTRJBWLONTD2438-38-09 09:47:00 Test Item Value Reference Range Interpretation Comments Monocytes # (test code 0.5 See_Comment N [Aut omated message] The = Monocytes #) system which generated this result tra nsmitted reference range : <=0.8. The reference r leo was not used to int erpret this result as normal/abnormal . [facility] HospitalNpunevvLZGVYFTZNU9899-04-82 09:47:00 Test Item Value Reference Range Interpretation Comments Eosinophils # (test code 0.0 See_Comment N [A utomated message] The = Eosinophils #) system whic h generated this result tra nsmitted reference range : <=0.5. The reference r leo was not used to int erpret this result as normal/abnormal . [facility] HospitalGzqulydHQBRHWPCNQ2586-25-18 09:47:00 Test Item Value Reference Range Interpretation Comments Segs (test code = Segs) 76.9 45.0-75.0 H [facility] HospitalDnjfvjtHFQEJITUTX5725-44-47 09:47:00 Test Item Value Reference Range Interpretation Comments Lymphocytes (test code = Lymphocytes) 15.9 20.0-40.0 L [facility] HospitalPnhtsgiIARTSETEKB5558-26-95 09:47:00 Test Item Value Reference Range Interpretation Comments Monocytes (test code = Monocytes) 6.3 2.0-12.0 N [facility] HospitalTvfyxxgLQRYZQELZI7822-96-33 09:47:00 Test Item Value Reference Range Interpretation Comments MCV (test code = MCV) 82.8 81.0-99.0 N [facility] HospitalLjjljydUMJRDSVNPO9123-05-88 09:47:00 Test Item Value Reference Range Interpretation Comments Hct (test code = Hct) 39.7 36.0-48.0 N [facility] HospitalNpqnqnzJETFOVQQWE9934-71-92 09:47:00 Test Item Value Reference Range Interpretation Comments MCH (test code = MCH) 29.1 pg 27.0-31.0 N [facility] HospitalQguobqiHIPRDQDEVA6810-71-31 09:47:00 Test Item Value Reference Range Interpretation Comments Hgb (test code = Hgb) 14.0 12.0-16.0 N [facility] HospitalIugxuqgQTGLKARZGA0400-62-39 09:47:00 Test Item Value Reference Range Interpretation Comments MCHC (test code = MCHC) 35.2 32.0-36.0 N [facility] HospitalGeqhxicLQPYWXCCZP3325-30-61 09:47:00 Test Item Value Reference Range Interpretation Comments RDW (test code = RDW) 13.9 11.5-14.5 N [facility] HospitalWvvbtuwEJPEOHHFIB8394-43-34 09:47:00 Test Item Value Reference Range Interpretation Comments Platelet (test code = Platelet) 160 133-450 N [facility] HospitalIwkzptbFFZQDRHOYQ6891-38-72 09:47:00 Test Item Value Reference Range Interpretation Comments MPV (test code = MPV) 11.9 7.4-10.4 H [facility] HospitalJijlpcqGWSQYWRADC2619-65-93 09:47:00 Test Item Value Reference Range Interpretation Comments WBC (test code = WBC) 7.7 3.7-10.4 N [facility] HospitalSgyohohKFIJXZTAGH1753-02-37 09:47:00 Test Item Value Reference Range Interpretation Comments RBC (test code = RBC) 4.80 4.20-5.40 N [facility] CenterCwohiewJULBRRHUA4115-69-56 10:28:00 Test Item Value Reference Range Interpretation Comments Phosphorus (test code = Phosphorus) 2.6 2.5-4.5 N [facility] CenterUqmvabgDYJOTYBJR3832-19-97 10:28:00 Test Item Value Reference Range Interpretation Comments Magnesium Lvl (test code = Magnesium 1.8 1.8-2.4 N Lvl) [facility] CenterXfmomkxZUOMDODSF6528-90-82 10:28:00 Test Item Value Reference Range Interpretation Comments Potassium Lvl (test code = Potassium 3.7 3.5-5.1 N Lvl) [facility] CenterCwdwpkqQGSLCANNV6755-16-99 10:28:00 Test Item Value Reference Range Interpretation Comments Sodium Lvl (test code = Sodium Lvl) 137 135-145 N [facility] CenterRusegfrOUFHYCACS1059-99-19 10:28:00 Test Item Value Reference Range Interpretation Comments Creatinine Lvl (test code = Creatinine 0.6 0.5-1.4 N Lvl) [facility] CenterEdioxyzEYQQCHRCR1970-17-57 10:28:00 Test Item Value Reference Range Interpretation Comments BUN (test code = BUN) 16 7-22 N [facility] CenterBnkoytiFBDPKONJH8356-89-86 10:28:00 Test Item Value Reference Range Interpretation Comments Glucose Lvl (test code = Glucose Lvl) 200 [facility] CenterXszsruqAZFBHNKHH6899-31-63 10:28:00 Test Item Value Reference Range Interpretation Comments Calcium Lvl (test code = Calcium Lvl) 8.3 8.5-10.5 L [facility] CenterDqcuepmNGTIDQPCM5075-12-41 10:28:00 Test Item Value Reference Range Interpretation Comments AGAP (test code = AGAP) 19.7 10.0-20.0 N [facility] CenterKzbrtkjTEWXRRIVK9828-66-53 10:28:00 Test Item Value Reference Range Interpretation Comments Chloride Lvl (test code = Chloride Lvl) 99 95-109 N [facility] CenterHwhfbvyWOPQHHWBS5070-06-05 10:28:00 Test Item Value Reference Range Interpretation Comments CO2 (test code = CO2) 22 24-32 L [facility] HospitalAyttmcnSGSYQEIGPP0203-60-74 10:28:00 Test Item Value Reference Range Interpretation Comments Platelet (test code = Platelet) 172 133-450 N [facility] HospitalAgxlogbXLTGLOMSBW3221-86-41 10:28:00 Test Item Value Reference Range Interpretation Comments MPV (test code = MPV) 12.0 7.4-10.4 H [facility] HospitalMdkfsfjWPZIYAPYEE8900-23-93 10:28:00 Test Item Value Reference Range Interpretation Comments WBC (test code = WBC) 7.3 3.7-10.4 N [facility] HospitalJzfcjtgYOCGGOBFIS4441-07-65 10:28:00 Test Item Value Reference Range Interpretation Comments RDW (test code = RDW) 14.6 11.5-14.5 H [facility] HospitalSnstwcoNNZBNIRTDO4470-39-00 10:28:00 Test Item Value Reference Range Interpretation Comments MCHC (test code = MCHC) 35.0 32.0-36.0 N [facility] HospitalEkiszutVEWBRDNYAE1177-38-31 10:28:00 Test Item Value Reference Range Interpretation Comments RBC (test code = RBC) 4.54 4.20-5.40 N [facility] HospitalSzktmjxAPGDKCSBEN4900-35-80 10:28:00 Test Item Value Reference Range Interpretation Comments Hct (test code = Hct) 37.6 36.0-48.0 N [facility] HospitalAblsmyvRGGIVJWTMI4088-85-52 10:28:00 Test Item Value Reference Range Interpretation Comments MCV (test code = MCV) 82.9 81.0-99.0 N [facility] HospitalPuzfclyRRLOUUMWOY4769-88-05 10:28:00 Test Item Value Reference Range Interpretation Comments MCH (test code = MCH) 29.0 pg 27.0-31.0 N [facility] HospitalOgkhlxdKFXOSWFKVJ9119-58-59 10:28:00 Test Item Value Reference Range Interpretation Comments Hgb (test code = Hgb) 13.2 12.0-16.0 N [facility] HospitalNhezhczQAETAOOTDC7065-86-42 10:28:00 Test Item Value Reference Range Interpretation Comments Elliptocyte (test code = Slight A Elliptocyte) *ABN*(08/21/2011 04:28:00) [facility] HospitalJaupnfzFXQSBZNQJX7873-88-01 10:28:00 Test Item Value Reference Range Interpretation Comments Polychrom (test code = Slight (08/21/2011 N Polychrom) 04:28:00) [facility] HospitalJigkhjzJIMINTGIRE4838-30-48 10:28:00 Test Item Value Reference Range Interpretation Comments Basophils # (test code 0.0 See_Comment N [Aut omated message] The = Basophils #) system which generated this result tra nsmitted reference range : <=0.2. The reference r leo was not used to int erpret this result as normal/abnormal . [facility] HospitalEzookfpBXNSCAOVEV0819-53-98 10:28:00 Test Item Value Reference Range Interpretation Comments Hypochrom (test code = Slight (08/21/2011 N Hypochrom) 04:28:00) [facility] HospitalTkedhpmOXHBHHSVHJ1889-83-67 10:28:00 Test Item Value Reference Range Interpretation Comments Monocytes # (test code 0.6 See_Comment N [Aut omated message] The = Monocytes #) system which generated this result tra nsmitted reference range : <=0.8. The reference r leo was not used to int erpret this result as normal/abnormal . [facility] HospitalWkhcircQCAVPVRNAT1422-72-05 10:28:00 Test Item Value Reference Range Interpretation Comments Eosinophils # (test code 0.0 See_Comment N [A utomated message] The = Eosinophils #) system whic h generated this result tra nsmitted reference range : <=0.5. The reference r leo was not used to int erpret this result as normal/abnormal . [facility] HospitalXguaionUZSVWTUWWQ5472-25-98 10:28:00 Test Item Value Reference Range Interpretation Comments Segs-Bands # (test code = Segs-Bands #) 5.3 1.5-8.1 N [facility] HospitalRbansktOFPHWRSNZM7320-95-40 10:28:00 Test Item Value Reference Range Interpretation Comments Lymphocytes # (test code = Lymphocytes 1.3 1.0-5.5 N #) [facility] HospitalNfbqensTANOCQOCFN8184-35-04 10:28:00 Test Item Value Reference Range Interpretation Comments Basophils (test code = 0.5 See_Comment N [Aut omated message] The Basophils) system which ge nerated this result tra nsmitted reference range : <=1.0. The reference r leo was not used to int erpret this result as normal/abnormal . [facility] HospitalMvgcnenJHWIVEFTYU8326-43-21 10:28:00 Test Item Value Reference Range Interpretation Comments Monocytes (test code = Monocytes) 8.5 2.0-12.0 N [facility] HospitalNltudqpAWBDPCMLOT3942-25-54 10:28:00 Test Item Value Reference Range Interpretation Comments Eosinophils (test code = 0.3 See_Comment N [A utomated message] The Eosinophils) system which ge nerated this result tra nsmitted reference range : <=4.0. The reference r leo was not used to int erpret this result as normal/abnormal . [facility] HospitalGprrjrmVUFEOQKNKO4816-85-27 10:28:00 Test Item Value Reference Range Interpretation Comments Lymphocytes (test code = Lymphocytes) 17.3 20.0-40.0 L [facility] HospitalRrzoxzjYZVQTOVBMC2088-02-49 10:28:00 Test Item Value Reference Range Interpretation Comments Segs (test code = Segs) 73.4 45.0-75.0 N [facility] GLUCOSE ROJAFEA1288-27-61 07:47:00 Test Item Value Reference Range Interpretation Comments Comment2 (test code = Comment2) Ver[facility] w/Lab [facility]inteQloeswsMMFXXXTID5938-30-48 21:58:00 Test Item Value Reference Range Interpretation Comments S Preg (test code = S Negative (08/19/2011 N Preg) 15:58:00) [facility] CenterKkntzteUQIRKIDHR0746-58-69 21:58:00 Test Item Value Reference Range Interpretation Comments Lipase Lvl (test code = Lipase Lvl) 169 73-393 N [facility] CenterTqrqwojCVGMDINFL2480-39-86 21:58:00 Test Item Value Reference Range Interpretation Comments ALT (test code = ALT) 54 See_Comment N [Auto mated message] The system which ge nerated this result transmit rohit reference range : <=65. The reference range was not used to interpr et this result as reji l/abnormal. [facility] CenterQgzhgazFAPEEANSL9556-49-76 21:58:00 Test Item Value Reference Range Interpretation Comments Alk Phos (test code = Alk Phos) 110 39-136 N [facility] CenterYzecbkxUWJQQOTGX1800-34-36 21:58:00 Test Item Value Reference Range Interpretation Comments Bili Direct (test code 0.1 See_Comment N [Aut omated message] The = Bili Direct) system which generated this result tra nsmitted reference range : <=0.3. The reference r leo was not used to int erpret this result as reji l/abnormal. [facility] CenterZighdndOONIVUNQY9147-30-41 21:58:00 Test Item Value Reference Range Interpretation Comments Bili Total (test code = Bili Total) 0.9 0.2-1.3 N [facility] CenterYmpovtwIFKZMGQRV5562-18-85 21:58:00 Test Item Value Reference Range Interpretation Comments Albumin Lvl (test code = Albumin Lvl) 4.4 3.5-5.0 N [facility] CenterKsgvsvbTGPVLNBNG1529-51-51 21:58:00 Test Item Value Reference Range Interpretation Comments Total Protein (test code = Total 8.8 6.4-8.4 H Protein) [facility] CenterSkvuosdRCQLMRUSI4014-79-16 21:58:00 Test Item Value Reference Range Interpretation Comments Bili Indirect (test 0.8 See_Comment N [Automa rohit message] The code = Bili Indirect) system which generated this result tra nsmitted reference range : <=1.0. The reference r leo was not used to int erpret this result as normal/abnormal . [facility] CenterVpjrxvqUZFMTDZGO7927-04-03 21:58:00 Test Item Value Reference Range Interpretation Comments AST (test code = AST) 36 See_Comment N [Auto mated message] The system which ge nerated this result transmit rohit reference range : <=37. The reference range was not used to interpr et this result as reji l/abnormal. [facility]inteOrgkvotPZWJVWPPK7247-06-39 21:58:00 Test Item Value Reference Range Interpretation Comments Globulin (test code = Globulin) 4.4 2.0-4.0 H [facility] CenterHgijqolYXBFGGLYG6071-97-53 21:58:00 Test Item Value Reference Range Interpretation Comments A/G Ratio (test code = A/G Ratio) 1.0 0.7-1.6 N [facility] HospitalTcrxbpyEOYKRBKCIP5148-52-37 21:58:00 Test Item Value Reference Range Interpretation Comments UA Bacteria (test code Occasional /HPF N = UA Bacteria) (08/19/2011 15:58:00) [facility]ZfznalgAMLBAGUUYY4394-40-99 21:58:00 Test Item Value Reference Range Interpretation Comments UA RBC (test 3-5 /HPF See_Comment A [Automated mes pastor] code = UA RBC) *ABN*(08/19/2011 The syste m which 15:58:00) generated this result transmitted ref erence range: <=2. The reference range was not used to int erpret this result as normal/abnormal . [facility] PointeUqrocwgVWLRULLJMM7035-67-57 21:58:00 Test Item Value Reference Range Interpretation Comments UA WBC (test code = 3 See_Comment [Automa rohit message] The UA WBC) system which ge nerated this result transmit rohit reference range : <=5. The reference range was not used to interpr et this result as reji l/abnormal. [facility] PointeFtutmieQVGCBZFSGH7701-01-67 21:58:00 Test Item Value Reference Range Interpretation Comments UA Mucus (test code = Few /LPF (08/19/2011 N UA Mucus) 15:58:00) [facility] HospitalAfaauekJBJZTTSYPD0242-12-15 21:58:00 Test Item Value Reference Range Interpretation Comments UA Amorph Destiny (test Occasional /HPF A code = UA Amorph *ABN*(08/19/2011 Destiny) 15:58:00) [facility] HospitalMdtihenQFOZJWDTGB6856-48-90 21:58:00 Test Item Value Reference Range Interpretation Comments UA Urobilinogen (test code = UA 0.2 0.1-1.0 N Urobilinogen) [facility] HospitalWrcvqviZOYPXHKBEU3118-55-80 21:58:00 Test Item Value Reference Range Interpretation Comments UA Sq Epi (test code = Rare /LPF (08/19/2011 N UA Sq Epi) 15:58:00) [facility]linePnkunvpWVJLSXACFJ7305-66-37 21:58:00 Test Item Value Reference Range Interpretation Comments Micro? (test code = Performed (08/19/2011 N Micro?) 15:58:00) [facility] HospitalTvbxrmhLPNOOIZDVW6228-23-90 21:58:00 Test Item Value Reference Range Interpretation Comments UA Leuk Est (test Negative (08/19/2011 N code = UA Leuk Est) 15:58:00) [facility]li[id number] 21:58:00 Test Item Value Reference Range Interpretation Comments UA Nitrite (test code Negative (08/19/2011 N = UA Nitrite) 15:58:00) [facility]lineTalewbbTVNLTQBKDX5404-61-84 21:58:00 Test Item Value Reference Range Interpretation Comments UA pH (test code = UA pH) 5.5 1 5.0-8.0 N [facility] HospitalNzfmuwoTYWZITWKTS9273-97-85 21:58:00 Test Item Value Reference Range Interpretation Comments UA Blood (test code = Trace *ABN*(08/19/2011 A UA Blood) 15:58:00) [facility]lineEubgqimIJCBZIHIHG7727-48-51 21:58:00 Test Item Value Reference Range Interpretation Comments UA Bili (test code = Negative (08/19/2011 N UA Bili) 15:58:00) [facility] HospitalVwewtvzUFUIKRTRHM7667-21-71 21:58:00 Test Item Value Reference Range Interpretation Comments UA Ketones (test code = 80 mg/dL A UA Ketones) *ABN*(08/19/2011 15:58:00) [facility]lineJtrfmoaELABPSENFW9266-41-68 21:58:00 Test Item Value Reference Range Interpretation Comments UA Glucose (test code = >=1000 mg/dL A UA Glucose) *ABN*(08/19/2011 15:58:00) [facility] HospitalLzrmixyHPUQHWXUQP6916-20-07 21:58:00 Test Item Value Reference Range Interpretation Comments UA Protein (test code Negative (08/19/2011 N = UA Protein) 15:58:00) [facility]RjwemdbFCPKKIBTWB8476-38-82 21:58:00 Test Item Value Reference Range Interpretation Comments UA Turbidity (test code Slight Cloudy N = UA Turbidity) (08/19/2011 15:58:00) [facility]lineTaegagwNAOLWAOZXN3614-86-90 21:58:00 Test Item Value Reference Range Interpretation Comments UA Spec Grav (test code = UA Spec 1.025 1 Grav) [facility]lineXvfeyfpBKOJAQZWXP5823-20-31 21:58:00 Test Item Value Reference Range Interpretation Comments UA Color (test code = Yellow (08/19/2011 N UA Color) 15:58:00) [facility]FxenpgdXKEDNARQR8538-27-80 21:13:00 Test Item Value Reference Range Interpretation Comments AST (test code = AST) 23 See_Comment N [Auto mated message] The system which ge nerated this result transmit rohit reference range : <=37. The reference range was not used to interpr et this result as reji l/abnormal. [facility] CenterBsssxnyHYYQPIUSA1921-95-63 21:13:00 Test Item Value Reference Range Interpretation Comments Bili Total (test code = Bili Total) 1.0 0.2-1.3 N [facility] CenterZnnrqopHHBZSBEPY1557-47-87 21:13:00 Test Item Value Reference Range Interpretation Comments Alk Phos (test code = Alk Phos) 115 39-136 N [facility] CenterQyfucazTFENOTRCZ7124-25-78 21:13:00 Test Item Value Reference Range Interpretation Comments ALT (test code = ALT) 56 See_Comment N [Auto mated message] The system which ge nerated this result transmit rohit reference range : <=65. The reference range was not used to interpr et this result as reji l/abnormal. [facility] CenterUliyckePYTUNWVKJ4327-31-63 21:13:00 Test Item Value Reference Range Interpretation Comments Total Protein (test code = Total 9.0 6.4-8.4 H Protein) [facility] CenterTxchileDCMWIFYLU2353-44-81 21:13:00 Test Item Value Reference Range Interpretation Comments Albumin Lvl (test code = Albumin Lvl) 4.8 3.5-5.0 N [facility] CenterSdodyyuTKSMSHGCM8086-36-51 21:13:00 Test Item Value Reference Range Interpretation Comments Globulin (test code = Globulin) 4.2 2.0-4.0 H [facility] CenterDoceqvbHJXOTGWSR0872-07-87 21:13:00 Test Item Value Reference Range Interpretation Comments A/G Ratio (test code = A/G Ratio) 1.1 0.7-1.6 N [facility] CenterTjxoabbLYPCHGOBR3246-68-15 21:13:00 Test Item Value Reference Range Interpretation Comments B/C Ratio (test code = B/C Ratio) 30 6-25 H [facility]YnctqeuIJPBOTJYKO8198-13-84 21:13:00 Test Item Value Reference Range Interpretation Comments RBC Morph (test code = Normal (08/19/2011 N RBC Morph) 15:13:00) [facility] HospitalHbxlqujSCITSEIXKJ2789-62-04 21:13:00 Test Item Value Reference Range Interpretation Comments Large Plt (test code = Slight *ABN*(08/19/2011 A Large Plt) 15:13:00) [facility] HospitalJaltqmrEPGCEZRPIL7507-80-50 21:13:00 Test Item Value Reference Range Interpretation Comments Atypical Lymphs (test code = Atypical 0.0 N Lymphs) [facility] HospitalHzxselsLAURDVVXTE8324-01-89 21:13:00 Test Item Value Reference Range Interpretation Comments Bands (test code = 0.0 See_Comment N [Automat ed message] The Bands) system which ge nerated this result transmit rohit reference range : <=11.0. The reference r leo was not used to interpr et this result as reji l/abnormal. [facility] CenterBmnlrjvTPXSIBIZE0678-33-23 21:10:00 Test Item Value Reference Range Interpretation Comments O2 Sat Roberth (test code = O2 Sat Roberth) 74.0 40.0-70.0 H [facility] CenterNwtopnlMSQQVTUAX6430-81-13 21:10:00 Test Item Value Reference Range Interpretation Comments Temp Roberth (test code = Temp Roberth) 37.0 [facility] CenterGijyiphFJSSMGPMD1501-01-10 21:10:00 Test Item Value Reference Range Interpretation Comments pO2 Roberth (test code = pO2 Roberth) 42 20-49 N [facility] CenterMqzbkapUTAVBFNPM1864-18-79 21:10:00 Test Item Value Reference Range Interpretation Comments HCO3 Roberth (test code = HCO3 Roberth) 17.3 22.0-26.0 L [facility] CenterDejqumsCIRHKUQKV4512-85-50 21:10:00 Test Item Value Reference Range Interpretation Comments pH Roberth (test code = pH Roberth) 7.34 7.28-7.42 N [facility]AebkqxdWILNEDULY7296-44-86 21:10:00 Test Item Value Reference Range Interpretation Comments pCO2 Roberth (test code = pCO2 Roberth) 32 38-52 L [facility] HeightsXcldjleCXSWVBGAT2592-51-36 21:10:00 Test Item Value Reference Range Interpretation Comments BE Roberth (test code = -7 See_Comment L [Automa rohit message] The BE Roberth) system which ge nerated this result transmit rohit reference range : <=2. The reference range was not used to interpr et this result as reji l/abnormal. [facility]inteOqsaogfOWDBFRRNPZ2200-81-01 20:34:00 Test Item Value Reference Range Interpretation Comments CDC-HIV 1/2 Ab (test Negative *NA*(08/19/2011 code = CDC-HIV 1/2 14:34:00) Ab) [facility]
[2022-07-23 10:13] LABS: Absolute Lymphocytes (CBC) 0.9 K/uL (0.7-4.9); Hematocrit 27.9 % (36.0-45.0); Lymphocytes % 30.9 % (15.3-44.8); MCV 87.5 fL (80-100); MPV 10.5 fL (7.6-11.3); RBC Red Blood Cell Count 3.19 M/uL (3.86-4.86)
--- NOTE | 2022-07-23 10:19 | RAD REPORT ---
EXAM DESCRIPTION: CT - Abdomen Pelvis Wo Contrast - 07/23/2022 10:10 am CLINICAL HISTORY: Upper abdominal pain COMPARISON: Stone Protocol dated 06/15/2022 TECHNIQUE: Axial [address] imaging of the abdomen and pelvis was performed without IV contrast. No IV contrast was given because of allergy, abnormal renal function, patient refusal or physician re quest. No oral contrast administered. All CT scans are performed using dose optimization technique as appropriate and may include automated exposure control or mA/KV adjustment according to patient size. FINDINGS: Small bilateral pleural effusions are present with partial atelectasis of the posterior as pect each lower lobe. Trace amount of pericardial thickening or fluid present. The liver, spleen and pancreas show no suspicious findings on non-contrast imaging. Gallbladder is di stended but not dilated. At least 2 small gallstones are identifiable within the lumen. Additional st ones or sludge could be present. The gallbladder wall does not appear thickened or edematous. There i s no pericholecystic fluid. No dilatation of the biliary tree. No hydronephrosis seen in the small kidneys. No acute renal parenchymal process seen. No significant adrenal finding. Isodense renal masses and pyelonephritis cannot be excluded in the absence of IV co ntrast. The urinary bladder is without significant finding. No uterine abnormality. No suspicious ova ry finding. Fallopian tubes are not dilated. No dilated bowel loops or bowel wall thickening. No appendicitis findings. No acute GI process identi fiable. No free air, free fluid or inflammatory stranding. No hernia, mass or bulky lymphadenopathy. No suspicious bony findings. Patient has very dense calcification of the arterial tree. Bowel ischemia is not suspected on this no ncontrast study. IMPRESSION: Non-contrast enhanced CT abdomen and pelvis imaging show no acute or emergent finding. Small bilateral pleural effusions. Full assessment is limited is the absence of IV contrast.
[2022-07-23] MEDS ORDERED: DIAZEPAM 10 MG/2 ML INJ SYRINGE ONE (10:43)
[2022-07-23] MEDS ORDERED: ONDANSETRON 4 MG/2 ML VIAL ONE (10:43)
--- NOTE | 2022-07-23 10:52 | RAD REPORT ---
EXAM DESCRIPTION: RAD - Chest Single View - 07/23/2022 10:40 am CLINICAL HISTORY: CHEST PAIN COMPARISON: Portable chest 12/05/2021 TECHNIQUE: AP portable chest image was obtained 07/23/2022 10:40 am . FINDINGS: Lung volumes are low. Interstitial pattern is accentuated by body habitus affects and low lung volume. Central vasculature also mildly prominent. Cardiomegaly is present. No measurable pleura l effusion and no pneumothorax. No acute bony abnormality seen. No acute aortic finding. Right subcla vian stenting again noted. IMPRESSION: Cardiomegaly with mild vascular engorgement. Interstitial pattern is accentuated by shallow inspiration. Mild failure/ volume overload is suspected.
[2022-07-23 11:07] LABS: Albumin 3.1 g/dL (3.4-5.0); Bilirubin Direct 0.2 mg/dL (0-0.2); Bilirubin Total 0.7 mg/dL (0.2-1.0); Potassium 4.9 mmol/L (3.5-5.1); Protein, Total 6.3 g/dL (6.4-8.2); Troponin High Sensitivity 16.2 pg/mL (<58.9)
--- NOTE | 2022-07-23 12:50 | ER ---
Nurse's Notes [facility] Name: Cathi Zaldivar Age: 41 yrs Sex: Female : 1980 Arrival Date: 07/23/2022 Time: 09:32 Bed 20 Private MD: Jose Miguel Morin Diagnosis: Chest pain, unspecified;Abdominal pain, unspecified;Gastroparesis Presentation: 07/23 09:44 Chief complaint: Patient states: Abd pain with N/V for 2 days. SOB since last night. ll1 Coronavirus screen: Vaccine status: Patient reports being unvaccinated. Client denies travel out of the [place] in the last 14 days. At this time, the client does not indicate any symptoms associated with coronavirus-19. Ebola Screen: Patient denies travel to an Ebola-affected area in the 21 days before illness onset. Initial Sepsis Screen: Does the patient meet any 2 criteria? No. Patient's initial sepsis screen is negative. Does the patient have a suspected source of infection? Yes: Acute abdominal pain. Risk Assessment: Do you want to hurt yourself or someone else? Patient reports no desire to harm self or others. Onset of symptoms was July 22, 2022. 09:44 Method Of Arrival: Ambulatory ll1 09:44 Acuity: JESSICA 3 ll1 Triage Assessment: 10:00 General: Appears uncomfortable. General: Behavior is cooperative, anxious. Pain: db Complains of pain in abdomen. 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 N/A - Post-menopause db Historical: - Allergies: 09:43 ambien; ll1 09:43 Codeine; ll1 09:43 GUAIFENESIN; ll1 09:43 Lisinopril; ll1 09:43 Morphine; ll1 09:43 Nitrofurantoin Macrocrystal; ll1 09:43 PENICILLINS; ll1 09:43 Prolixin; ll1 09:43 zolpidem tartrate; ll1 - PMHx: 09:43 "mental problems"; cardiac arrest; CHF; chronic kidney disease; cyclic vomiting ll1 syndrome; Diabetes - NIDDM; Dialysis; m-w-f; ENCEPHALOPATHY; Gastroparesis; Hypertension; ibs; liver failure; PERIPHERAL NEUROPATHY; pseudo aneurysm R groin; Seizures; - PSHx: 09:43 section; dialysis catheter R chest wall; eye removed; ll1 - Immunization history:: Client reports having NOT received the Covid vaccine. - Social history:: Smoking status: Patient reports the use of cigarette tobacco products, denies chronic smoking, but will smoke occasionally. Screenin:17 [facility] ED Fall Risk Assessment (Adult) History of falling in the last 3 months, db including since admission No falls in past 3 months (0 pts) Confusion or Disorientation No (0 pts) Intoxicated or Sedated No (0 pts) Impaired Gait No (0 pts) Mobility Assist Device Used No (0 pt) Altered Elimination No (0 pt) Score/Fall Risk Level 0 - 2 = Low Risk Oriented to surroundings, Maintained a safe environment. Abuse screen: Denies threats or abuse. Denies injuries from another. Nutritional screening: No deficits noted. Tuberculosis screening: No symptoms or risk factors identified. Assessment: 10:00 Reassessment: Patient appears in no apparent distress at this time. Patient and/or db family updated on plan of care and expected duration. Pain level reassessed. Patient is alert, oriented x 3, equal unlabored respirations, skin warm/dry/pink. patient complains of abdominal pain and nausea and vomiting since yesterday. General: Appears in no apparent distress. comfortable, Behavior is calm, cooperative. Pain: Complains of pain in abdomen. Neuro: No deficits noted. Level of Consciousness is awake, alert, obeys commands, Oriented to person, place, time, situation. Cardiovascular: Rhythm is regular. Respiratory: Airway is patent Respiratory effort is even, unlabored, Respiratory pattern is regular, symmetrical. GI: Bowel sounds present X 4 quads. Abd is soft Abdomen is tender to palpation in right lower quadrant and left lower quadrant. 11:00 Reassessment: Patient appears in no apparent distress at this time. Patient and/or db family updated on plan of care and expected duration. Pain level reassessed. Patient is alert, oriented x 3, equal unlabored respirations, skin warm/dry/pink. 12:00 Reassessment: Patient appears in no apparent distress at this time. Patient and/or db family updated on plan of care and expected duration. Pain level reassessed. Patient is alert, oriented x 3, equal unlabored respirations, skin warm/dry/pink. reports abdominal pain. 13:00 Reassessment: reports pain and nausea. db 13:56 Reassessment: Patient and/or family updated on plan of care and expected duration. Pain db level reassessed. Patient is alert, oriented x 3, equal unlabored respirations, skin warm/dry/pink. Vital Signs: 09:44 Resp 18; Temp 97.9; Weight 79 kg; Height 5 ft. 1 in. (154.94 cm); Pain 9/10; ll1 10:15 BP 228 / 96; Pulse 74; Resp 18; Pulse Ox 100% on R/A; db 11:00 BP 196 / 91; Pulse 73; Resp 18; Pulse Ox 100% ; db 12:02 BP 207 / 96; Pulse 78; Resp 18; Pulse Ox 95% on R/A; db 13:00 BP 228 / 87; Pulse 82; Resp 16; Pulse Ox 98% on R/A; db 13:00 BP 170 / 85; Pulse 85; Resp 18; Pulse Ox 97% on R/A; Pain 2/10; db 09:44 Body Mass Index 32.91 (79.00 kg, 154.94 cm) ll1 Vitals: 13:00 Cardiac Rhythm Assessment Regular Sinus rhythm. db ED Course: 09:32 Patient arrived in ED. as 09:33 Jose Miguel Morin DO is Private Physician. as 09:33 Anand Gallo NP is PHCP. pm1 09:33 José Miguel Saleh DO is Attending Physician. pm1 09:35 Arm band placed on Patient placed in an exam room, on a stretcher. ll1 09:47 Triage completed. ll1 10:00 Inserted saline lock: 22 gauge in right ,using aseptic technique. right breast by jacinto Felipe. 10:10 CT Abd/Pelvis - Without Contrast In Process Unspecified. EDMS 10:23 Nikki Lee, RN is Primary Nurse. db 10:42 XRAY Chest (1 view) In Process Unspecified. EDMS 11:18 No provider procedures requiring assistance completed. db 13:00 Patient has correct armband on for positive identification. Bed in low position. Call db light in reach. Side rails up X 1. Client placed on continuous cardiac and pulse oximetry monitoring. NIBP monitoring applied. Warm blanket given. 13:58 IV discontinued, intact, bleeding controlled, No redness/swelling at site. db Administered Medications: 10:40 Drug: Zofran (Ondansetron) 4 mg Route: IVP; Site: right subclavian; db 11:51 Follow up: Response: No adverse reaction; Nausea is decreased db 10:40 Drug: Valium (diazepam) 2 mg Route: IVP; Site: right subclavian; db 11:50 Follow up: Response: No adverse reaction db 13:00 Drug: GI Cocktail without - (Maalox Suspension 30 ml, Lidocaine Liquid 2 % 15 db ml) Route: PO; 13:59 Follow up: Response: No adverse reaction db 13:00 Drug: Dilaudid (HYDROmorphone) 1 mg Route: IVP; Site: right subclavian; db 13:59 Follow up: Response: No adverse reaction db 13:02 Drug: Pepcid (famotidine) 20 mg Route: IVP; Site: right subclavian; db 13:59 Follow up: Response: No adverse reaction db Medication: 13:00 VIS not applicable for this client. db Outcome: 12:50 Discharge ordered by . pm1 13:58 Discharged to home ambulatory, with family. db 13:58 Condition: stable 13:58 Discharge instructions given to patient, Instructed on discharge instructions, follow up and referral plans. Demonstrated understanding of instructions, follow-up care, Prescriptions given X 2. 14:00 Patient left the ED. db Signatures: Dispatcher [employer] Kimmy Francois Patrick, CHAPARRITA RN OR LPN pm1 Georgette Longoria RN RN ll1 Nikki Lee RN RN db
--- NOTE | 2022-07-23 12:51 | EDPHYS ---
Physician Documentation [facility] Name: Cathi Zaldivar Age: 41 yrs Sex: Female : 1980 Arrival Date: 07/23/2022 Time: 09:32 Bed 20 Private MD: Jose Miguel Morin ED Physician José Miguel Saleh HPI: 07/23 09:47 This 41 yrs old Female presents to ER via Ambulatory with complaints of pm1 Abdominal Pain, Vomiting. 09:47 The patient presents with abdominal pain in the upper abdomen. Onset: The pm1 symptoms/episode began/occurred 2 day(s) ago. The symptoms do not radiate. Associated signs and symptoms: Pertinent positives: chest pain, onset last night. 09:47 The symptoms are described as achy, burning. Modifying factors: The symptoms are pm1 alleviated by nothing, the symptoms are aggravated by nothing. Severity of pain: in the emergency department the pain is actually worse. The patient has experienced similar episodes in the past, multiple times, today's symptoms are similar, to previous Gastroparesis. The patient has not recently seen a physician. 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 N/A - Post-menopause db Historical: - Allergies: 09:43 ambien; ll1 09:43 Codeine; ll1 09:43 GUAIFENESIN; ll1 09:43 Lisinopril; ll1 09:43 Morphine; ll1 09:43 Nitrofurantoin Macrocrystal; ll1 09:43 PENICILLINS; ll1 09:43 Prolixin; ll1 09:43 zolpidem tartrate; ll1 - PMHx: 09:43 "mental problems"; cardiac arrest; CHF; chronic kidney disease; cyclic vomiting ll1 syndrome; Diabetes - NIDDM; Dialysis; m-w-f; ENCEPHALOPATHY; Gastroparesis; Hypertension; ibs; liver failure; PERIPHERAL NEUROPATHY; pseudo aneurysm R groin; Seizures; - PSHx: 09:43 section; dialysis catheter R chest wall; eye removed; ll1 - Immunization history:: Client reports having NOT received the Covid vaccine. - Social history:: Smoking status: Patient reports the use of cigarette tobacco products, denies chronic smoking, but will smoke occasionally. ROS: 09:47 Constitutional: Negative for fever, chills, and weight loss. pm1 09:47 Back: Negative for injury and pain, MS/Extremity: Negative for injury and deformity, Skin: Negative for injury, rash, and discoloration, Neuro: Negative for headache, weakness, numbness, tingling, and seizure. 09:47 Cardiovascular: Positive for chest pain, of the mid-sternal area. 09:47 Respiratory: Negative for shortness of breath. 09:47 Abdomen/GI: Positive for abdominal pain, nausea and vomiting, of the right upper quadrant and left upper quadrant, Negative for diarrhea, constipation. 09:47 All other systems are negative. Exam: 09:47 Constitutional: This is a well developed, well nourished patient who is awake, alert, pm1 and in no acute distress. Head/Face: Normocephalic, atraumatic. 09:47 Back: No spinal tenderness. No costovertebral tenderness. Full range of motion. Skin: Warm, dry with normal turgor. Normal color with no rashes, no lesions, and no evidence of cellulitis. MS/ Extremity: Pulses equal, no cyanosis. Neurovascular intact. Full, normal range of motion. 09:47 Eyes: Exam is negative for acute changes, Periorbital structures: no acute changes, Extraocular movements: no acute changes, Conjunctiva: no acute changes, no injection. 09:47 Cardiovascular: Exam negative for acute changes, Rate: normal, Rhythm: regular, Pulses: no pulse deficits are appreciated, Heart sounds: normal. 09:47 Respiratory: Exam negative for acute changes, respiratory distress, shortness of breath, Breath sounds: are clear throughout. 09:47 Abdomen/GI: Inspection: abdomen appears normal, Palpation: soft, in all quadrants, mild abdominal tenderness, in the epigastric area. 09:47 Neuro: Exam negative for acute changes, Orientation: is normal, Mentation: is normal, Motor: is normal, moves all fours. Vital Signs: 09:44 Resp 18; Temp 97.9; Weight 79 kg; Height 5 ft. 1 in. (154.94 cm); Pain 9/10; ll1 10:15 BP 228 / 96; Pulse 74; Resp 18; Pulse Ox 100% on R/A; db 11:00 BP 196 / 91; Pulse 73; Resp 18; Pulse Ox 100% ; db 12:02 BP 207 / 96; Pulse 78; Resp 18; Pulse Ox 95% on R/A; db 13:00 BP 228 / 87; Pulse 82; Resp 16; Pulse Ox 98% on R/A; db 13:00 BP 170 / 85; Pulse 85; Resp 18; Pulse Ox 97% on R/A; Pain 2/10; db 09:44 Body Mass Index 32.91 (79.00 kg, 154.94 cm) ll1 MDM: 09:35 Patient medically screened. pm1 12:49 Data reviewed: vital signs. pm1 12:49 Counseling: I had a detailed discussion with the patient and/or guardian regarding: the pm1 historical points, exam findings, and any diagnostic results supporting the discharge/admit diagnosis, lab results, radiology results, the need for outpatient follow up, to return to the emergency department if symptoms worsen or persist or if there are any questions or concerns that arise at home. 07/23 09:47 Order name: Basic Metabolic Panel; Complete Time: 11:10 pm07/23 09:47 Order name: CBC with Diff; Complete Time: 10:23 pm07/23 09:47 Order name: LFT's; Complete Time: 11:10 pm07/23 09:47 Order name: Troponin HS; Complete Time: 11:10 pm07/23 09:47 Order name: XRAY Chest (1 view); Complete Time: 10:56 pm07/23 09:47 Order name: Lipase; Complete Time: 11:10 pm07/23 09:47 Order name: EKG; Complete Time: 09:47 pm07/23 09:47 Order name: Cardiac monitoring; Complete Time: 10:51 pm07/23 09:47 Order name: CT Abd/Pelvis - Without Contrast; Complete Time: 10:23 pm07/23 09:47 Order name: EKG - Nurse/Tech; Complete Time: 11:51 pm07/23 09:47 Order name: IV Saline Lock; Complete Time: 10:51 pm07/23 09:47 Order name: Labs collected and sent; Complete Time: 10:51 pm07/23 09:47 Order name: O2 Per Protocol; Complete Time: 10:52 pm07/23 09:47 Order name: O2 Sat Monitoring; Complete Time: 10:52 pm07/23 10:22 Order name: Labs - recollect needed: recollect green top please-hemolyzed; Complete em1 Time: 10:51 EC:40 Rate is 73 beats/min. Rhythm is regular, Normal Sinus Rhythm with Possible left atrial pm1 enlargement. QRS [place] is Normal. MN interval is normal. QRS interval is normal. QT interval is normal. No Q waves. T waves are Normal. No ST changes noted. Clinical impression: Normal sinus rhythm, possible left atrial enlargement, borderline EKG. Administered Medications: 10:40 Drug: Zofran (Ondansetron) 4 mg Route: IVP; Site: right subclavian; db 11:51 Follow up: Response: No adverse reaction; Nausea is decreased db 10:40 Drug: Valium (diazepam) 2 mg Route: IVP; Site: right subclavian; db 11:50 Follow up: Response: No adverse reaction db 13:00 Drug: GI Cocktail without - (Maalox Suspension 30 ml, Lidocaine Liquid 2 % 15 db ml) Route: PO; 13:59 Follow up: Response: No adverse reaction db 13:00 Drug: Dilaudid (HYDROmorphone) 1 mg Route: IVP; Site: right subclavian; db 13:59 Follow up: Response: No adverse reaction db 13:02 Drug: Pepcid (famotidine) 20 mg Route: IVP; Site: right subclavian; db 13:59 Follow up: Response: No adverse reaction db Disposition: 19:21 Co-signature as Attending Physician, José Miguel BRITTON was immediately available on-site ms3 in the Emergency Department for consultation in the care of the patient. Disposition Summary: 07/23/22 12:50 Discharge Ordered Location: Home pm1 Problem: new pm1 Symptoms: have improved pm1 Condition: Stable pm1 Diagnosis - Chest pain, unspecified pm1 - Abdominal pain, unspecified pm1 - Gastroparesis pm1 Followup: pm1 - With: Emergency Department - When: As needed - Reason: Worsening of condition Followup: pm1 - With: Private Physician - When: 2 - 3 days - Reason: Recheck today's complaints, Continuance of care, Re-evaluation by your physician Discharge Instructions: - Discharge Summary Sheet pm1 - Abdominal Pain, Adult pm1 - Nonspecific Chest Pain, Adult pm1 - Gastroparesis pm1 Forms: - Medication Reconciliation Form pm1 - Thank You Letter pm1 - Antibiotic Education pm1 - Prescription Opioid Use pm1 Prescriptions: - dicyclomine 20 mg Oral Tablet - take 1 tablet by ORAL route 4 times per day As needed; 20 tablet; Refills: 0, pm1 Product Selection Permitted - ondansetron 4 mg Oral - take 4 milligrams by SUBLINGUAL route every 8 hours; 15 tablet; Refills: 0, pm1 Product Selection Permitted Signatures: Dispatcher [employer] EDFavian Marti em1 Anand Gallo NP [employer] pm1 Georgette Longoria, RN RN ll1 José Miguel Saleh DO DO ms3 Nikki Lee, RN RN db
[2022-07-23] MEDS ORDERED: MAGNES/ALUMIN/SIMET 30ML UCUP ONE (13:01)
[2022-07-23] MEDS ORDERED: LIDOCAINE VISCOUS 2% SOLN 15 ML UDC ONE (13:02)
[2022-07-23] MEDS ORDERED: FAMOTIDINE 20 MG/2 ML VIAL IV ONE (13:02)
[2022-07-23] MEDS ORDERED: HYDROMORPHONE HCL 1 MG/ML INJ ONE (13:02)
[2022-07-23 14:04] VITALS: TEMP 97.9
[2022-07-23 14:09] VITALS: BP 170/85; O2SAT 97
== END 2022-07-23 14:00 | disposition home or self-care (01) ==
LOC: ER 09:30
DX: R07.89 Other chest pain (principal); R10.13 Epigastric pain; K31.84 Gastroparesis; E11.22 Type 2 diabetes mellitus with diabetic chronic kidney disease; I13.2 Hypertensive heart and chronic kidney disease with heart failure and with stage 5 chronic kidney disease, or end stage renal disease; N18.6 End stage renal disease; I50.9 Heart failure, unspecified; Z99.2 Dependence on renal dialysis; Z88.0 Allergy status to penicillin; Z88.5 Allergy status to narcotic agent; Z88.8 Allergy status to other drugs, medicaments and biological substances
CPT/HCPCS: 93005; 85025; 80048; 36415; 80076; 84484; 83690; 74176; 71045; 96375; 96374; 99284; J3360; J1170; J2405

== ENCOUNTER 2022-08-08 19:12 | Emergency (ER) | payer OTHER ==
--- OUTSIDE RECORDS SUMMARY | 2022-08-08 19:49 | XMS REPORT | Continuity of Care Document ---
:[address] [facility] t Address [address] [place] [address] Care Team Providers Name Role Phone SHARPLESS Primary Care Physician Unavailable Nodal_J Attending Clinician Unavailable Deshazo_T Attending Clinician Unavailable RAJ WEST Attending Clinician Unavailable Jose Miguel Morin DO Attending Clinician Rosy BURNS, Brooke Ricci Attending Clinician [phone] Seth GENAO, Bessie Parks Attending Clinician [phone] Forrest Cruz Attending Clinician Unavailable Melany Gilbert Attending Clinician Pat BURNS, Sivan Brand Attending Clinician Isra BURNS, Rachel Lew Attending Clinician [phone] Robe BURNS, Holden Elmore Attending Clinician Magaly BURNS, Shanda Higuera Attending Clinician Endy BURNS, Aurelio Attending Clinician Alesia Dodd Attending Clinician Joe BURNS, Mando Raphael Attending Clinician [phone] Jose Carlos BURNS, Veot Vincent Attending Clinician Pati BURNS, Juwan Attending Clinician Doc BURNS, Sofi Juárez Attending Clinician [phone] Robert MAYS, Gayle Attending Clinician Unavailable [...] MAYS, Elodia Attending Clinician Unavailable Doctor Unassigned, [place] Attending Clinician Unavailable MONA BHAT Attending Clinician [...] Clinician Unavailable Deja Cleaning DPM Attending Clinician [phone] P[facility], [facility] Echo Room 1 - Attending Clinician Unavailable Visit, Adc Nurse Attending Clinician Unavailable 2, Adc Lab Attending Clinician Unavailable Mona Bhat MD [...] Arun Espitia MD, Victor J Admitting Clinician [phone] Hui Wright Admitting Clinician HUI WRIGHT Admitting Clinician Unavailable Rei Waldron Admitting Clinician Unavailable MOISE BHAKTA Admitting Clinician Unavailable Danae Cha Admitting Clinician Joe Juárez Admitting Clinician Payers Payer Name Policy Type Policy Number Effective Date Expiration Date S karla MEDICARE PART A AND [id number] 2014 2021 B 00:00:00 00:00:[address] [employer] [address]MAR [id number] 2020 00:00:00 MEDICARE PART A \\T\\ [id number] 2014 B 00:00:00 MEDICAID OF [place] [id number] 2020 00:00:00 [employer] [facility] [id number] 2021 (MEDICARE 00:00:00 REPLACEMENT HMO) MEDICARE A B [id number] 2014 00:00:00 [place]ID [place] [id number] 2016 00:00:00 Problems Condition Condition Condition Status Onset Resolution Last Treating Co mments Source Name Details Category Date Date Treatment Clinician Date AVF AVF Disease Active Univers (arteriove (arteriove 03-19 it y of nous nous 00:00: [place] fistula) fistula) 00 Medica l Branch End stage End stage Disease Active [facility] renal renal 16 Health failure on failure on 00:00: dialysis [...] ESISI/IBS- 01-03 21:41:00 l /ANEMIA D/ANEMIA 00:00: [place] Active 00 01/03/2021 [facility] NEW NEW Diagnosis Active 2020-12-24 Mem oria PATIENT GI PATIENT GI 10-14 10:39:00 l CONSULT CONSULT 00:00: Vin REFRACTORY REFRACTORY 00 GASTRO GASTRO Active 10/14/2020 [facility] Malfunctio Malfunctio Disease Active Overview : Univers n of n of 6-03 Formattin ity of arterioven arterioven 00:00: g of this [place] ous ous 00 note Medical dialysis dialysis might be Bran ch fistula, fistula, different initial initial from the encounter encounter original. Added automatic ally from request for surgery [id number] Candidiasi Candidiasi Disease Active U nivers s of vulva s of vulva 2-18 it y of [place] [facility] Branch Screening Screening Disease Active Uni vers for breast for breast 2-18 it y of cancer cancer 00:00: [place] 00 Medical Branch NEW NEW Diagnosis Active 2018-07-26 [facility] oria EVALUATION EVALUATION 07-12 09:39:00 l Active 00:00: Vin 07/12/2018 [facility] Pyogenic Pyogenic Disease Active 2017-06 Overview: Un lori granuloma granuloma 0-17 Formattin i ty of of of 00:00: g of this [place] conjunctiv conjunctiv 00 note Me dical a, right a, right might be Bran ch different from the original. Added automatic ally from request for surgery [id number] Right eye Right eye Disease Active Overview: Univers affected affected 9-04 Formattin ity of by by 00:00: g of this [place] proliferat proliferat 00 note Me dical montse montse might be Branch diabetic diabetic different retinopath retinopath from the y with y with original. traction traction Added retinal retinal automatic detachment detachment ally from not not request involving involving for macula, macula, surgery associated associated [id number] with type with type 1 diabetes 1 diabetes mellitus mellitus Pain Pain Disease Active Univers management management 01-18 it y of 00:00: Medical Branch Blind Blind Disease Active Overview: Univer s painful painful 12-16 Formattin ity o f eye eye 00:00: g of this [place] 00 note Medical might be Branch different from the original. Eviscerat ion OS on 8 - Dr. 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 Added automatic ally from request for surgery [id number] ESRD (end ESRD (end Disease Active Overview: Univers stage stage 6-12 Formattin ity of renal renal 00:00: g of this [place] disease) disease) 00 note Medica l on on might be Branch dialysis dialysis different from the original. Added automatic ally from request for surgery [id number] Diabetes Diabetes Disease Active Metho di mellitus [...] Added automatic ally from request for surgery [id number] Neovascula Neovascula Disease Active U nivers r r 1-18 ity of glaucoma, glaucoma, 00:[place] left eye left eye 00 Medica l Branch Increased Increased Disease Active Uni vers intraocula intraocula 1-18 it y of r pressure r pressure [place] Fall Fall Disease Active 2016-06 Univers 0-13 ity of 00:00: Medical Branch Pneumonia Pneumonia Disease Active 2016-06 Uni vers 0-11 ity of 00:00: [place] 00 Medical Branch Diabetes Diabetes Disease Active 2016-06 Overview: Un lori mellitus mellitus 0-05 Formattin ity of 00:00: g of this [place] 00 note Medical might be Branch different from the original. Added automatic ally from request for surgery [id number] Pseudotumo Pseudotumo Disease Active U nivers r cerebri r cerebri 9-25 ity of 00:00: [place] [address] Medical Branch Liver Liver Disease Active [facility] [...] Pati kes DM DM 00:00: Medical 00 [place] Cyclic Cyclic Disease Active [facility] vomiting vomiting 7-16 [facility] syndrome syndrome 00:00: Medica l 00 Center Anxiety Anxiety Disease Active [facility] Bipolar Bipolar Disease Active [facility] disorder disorder 7[facility]16 [facility]: Medical 00 [place] Hypertensi Hypertensi Disease Active [facility] ve ve 7-16 [facility] emergency emergency 00:00: Medi tawnya 00 [place] ACUTE RESP ACUTE Diagnosis Active 2016-09-09 Memoria FAILURE RESP 07-23 09:11:00 l FAILURE 00:00: Vin Active 00 07/23/2016 [facility] CONGESTION Diagnosis Active 2016-07-24 Memoria AMD CONGESTION 07-23 01:49:00 l DIARRHEA AMD 00:00: [place] DIARRHEA 00 Active 07/23/2016 [facility] Congestive Congestive Disease Active 2015-06 U T heart heart 08-11 Health failure failure 00:00: (CHF) (CHF) 00 SOB/SWELLI SOB/SWELL Diagnosis Active 2015-062016-06-10 Memoria NG ING Active 08-11 15:48:00 l 06/10/2016 00:00: Jake gonzalez [address] CHF/RENAL Diagnosis Active 2015-062016-06-24 Memoria DISEASE CHF/RENAL 08-11 15:35:00 l DISEASE 00:00: [place] Active 00 06/10/2016 [facility] Obesity Obesity Disease Active 2015-06 Univers (BMI (BMI 0-12 ity of 30-39.9) 30-39.9) 00:00: [place] [address] Medical Branch Hyperosmol Hyperosmol Disease Active 2015-06 U nivers ar ar 0-12 ity of non-ketoti non-ketoti [place] c state in 00 Me dical patient patient Branch with 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 Hyperglyce Hyperglyce Disease Active 2015-06 U nivers maryam maryam 0-11 ity of 00:00: [place] [address] Medical Branch Diabetic Diabetic Disease Active Unive rs ulcer of ulcer of 5-07 ity of both feet [place] 00:[place] associated associated 00 Me dical with type with type Bran ch 2 diabetes 2 diabetes mellitus mellitus SANJUANA (acute SANJUANA (acute Disease Active U nivers kidney kidney 5-07 ity of injury) injury) 00:00: [place] [address] Medical Branch Depression Depression Disease Active U nivers 5-07 ity of 00:00: [place] [address] Medical Branch Bipolar 1 Bipolar 1 Disease Active Uni vers disorder disorder 5-07 ity of 00:00: [place] [address] Medical Branch Suicidal Suicidal Disease Active Unive rs ideation ideation 5-05 ity of 00:00: [place] [address] Medical Branch Diabetes Diabetes Disease Active Unive [...] 00:00: [place] cancer in cancer in 00 Medi tawnya female female Branch Family Family Disease [...] [facility] ABD PAIN ABD PAIN Diagnosis Active 2012-062013-04-19 Memoria Active 0 21:51:00 l 04/14/2013 19:00: Jake gonzalez [address] [place] GASTROPERI Diagnosis Active 2012-09-13 Memoria SIS GASTROPERI -12 15:17:00 l SIS Active 00:00: Jake gonzalez 08/02/2012 00 [facility] ABDOMINAL ABDOMINAL Diagnosis Active 2012-03-14 Memoria PAIN PAIN 03-14 16:56:00 l Active 14:00: Vin 03/14/2012 00 [facility] NAUSEA, NAUSEA, Diagnosis Active 2012-03-14 Memoria VOMITING VOMITING 03-14 13:25:00 l Active 08:00: Vin 03/14/2012 00 [facility] N/V N/V Diagnosis Active 2011-12-08 Mem oria INABILITY INABILITY 11-27 11:14:00 l TO TO 00:00: Vin TOLERATE TOLERATE 00 PO PO Active 11/28/2011 [facility] VOMITTING VOMITTING Diagnosis Active 2011-11-28 Memoria Active 11-27 16:28:00 l 11/28/2011 00:00: Jake n [address] VOMITTING, VOMITTING Diagnosis Active 2011-09-18 Memoria HIGH BLOOD , HIGH 09-17 09:45:00 l SUGAR BLOOD 00:00: Vin SUGAR 00 Active 09/18/2011 [facility] Methicilli Methicill Problem Active 2021-01-31 Memoria n in 08-31 22:29:25 l resistant resistant 00:00: Herm naeem Staphyloco Staphyloco 00 ccus ccus aureus aureus (organism) (organism) Active 09/01/2011 Problem 01/31/2021 09/01/11 - Elbow woundProbl em added by Discern Expert. [facility] MRSA MRSA Problem Active 2012-03-16 Memor ia Active 08-31 09:11:30 l 09/01/2011 00:00: Jake n Problem 00 03/16/2012 - Elbow [id number] emily added by Discern Expert. [facility] VOMITING, VOMITING, Diagnosis Active 2011-09-01 [facility] BLOOD BLOOD 08-30 03:19:00 l SUGAR SUGAR 00:00: Vin READINGS READINGS 00 HIGH HIGH Active 08/31/2011 [facility] ELBOW ELBOW Diagnosis Active 2011-09-10 Me moria ABSCESS/HY ABSCESS/HY 08-30 16:26:00 l PERGLYCEMI PERGLYCEMI 00:00: He rmann A A Active 00 08/31/2011 [facility] Hypokalemi Hypokalem Problem Active 2012-03-16 Memoria a ia Active 08-22 09:11:30 l 08/23/2011 00:00: Jake n Problem 00 03/16/2012 [facility] DKA DKA Diagnosis Active 2011-08-24 Mem oria Active 11:27:00 l 08/19/2011 00:00: Jake gonzalez [address] VOMITING VOMITING Diagnosis Active 2011-08-19 Memoria Active 16:21:00 l 08/19/2011 00:00: Jake gonzalez [address] Final: Final: Problem 2016-08-02 [place] janice Acute Acute 02:46:22 l respirator respirator He rmann y failure, y failure, unspecifie unspecifie d whether d whether with with hypoxia or hypoxia or hypercapni hypercapni a a 08/02/2016 [facility] Hypoglycem Hypoglyce Problem Inactiv 2012-03-16 Memoria ia maryam e 09:11:30 l Inactive Vin Problem 03/16/2012 [facility] Hypoglycem Hypoglyce Problem Inactiv 2013-04-22 Memoria ia maryam e 04:46:33 l (disorder) (disorder) He rmann Inactive Problem 04/22/2013 [facility] Gastropare Gastropar Problem Resolve 2021-01-31 Memoria sis esis d 22:29:25 l (disorder) (disorder) He rmann Resolved Problem 01/31/2021 [facility] Hypertensi Hypertens Problem Resolve 2021-01-31 Memoria ve montse d 22:29:25 l disorder, disorder, Herm naeem systemic systemic arterial arterial (disorder) (disorder) Resolved Problem 01/31/2021 [facility] Psychiatri Psychiatr Problem Resolve 2021-01-31 Memoria c ic d 22:29:25 l behavioral behavioral He rmann disability disability (finding) (finding) Resolved Problem 01/31/2021 [facility] Seizure Seizure Problem Resolve 2021-01-31 M emoria (finding) (finding) d 22:29:25 l Resolved [place] Problem 01/31/2021 [facility] Hypertensi Hypertens Problem Active 2012-03-16 Memoria on ion Active 09:11:30 l Problem [place] 03/16/2012 [facility] Hypomagnes Hypomagne Problem Active 2013-04-22 Memoria emia semia 04:46:33 l Active Vin Problem 04/22/2013 [facility] Nausea and Nausea Problem Active 2012-03-16 Memoria vomiting and 09:11:30 l vomiting Vin Active Problem 03/16/2012 [facility] ENCNTR FOR ENCNTR Diagnosis Active 2020-12-24 Memoria GENERAL FOR 10:39:00 l ADULT GENERAL [place] MEDICAL ADULT EXAM W/ MEDICAL EXAM W/ Active [facility] DMI DMI Diagnosis Active 2011-08-24 Mem oria KETOACD KETOACD 11:27:00 l UNCONTROLD UNCONTROLD He rmann Active [facility] OTHER OTHER Diagnosis Active 2011-09-10 Mem oria GENERAL GENERAL 16:26:00 l SYMPTOMS SYMPTOMS Jake n Active [facility] HEART HEART Diagnosis Active 2016-06-24 Mem oria FAILURE, FAILURE, 15:35:00 l UNSPECIFIE UNSPECIFIE He rmann D D Active [facility] ACUTE ACUTE Diagnosis Active 2016-09-09 Mem oria RESPIRATOR RESPIRATOR 09:11:00 l Y FAILURE, Y FAILURE, He ally UNSP W UNSP W HYPOXI HYPOXI Active [facility] Nausea and Nausea Problem Resolve 2021-01-31 2021-01-31 Memoria vomiting and d - 22:29:25 22:29:25 l (disorder) vomiting 00:00: Herm naeem (disorder) 00 Resolved 11/29/2011 Problem 01/31/2021 [facility] Hypokalemi Hypokalem Problem Resolve 2021-01-31 2021-01-31 Memoria a ia d 08-22 22:29:25 22:29:25 l (disorder) (disorder) 00:00: He rmann Resolved 00 08/23/2011 Problem 01/31/2021 [facility] Disorder Disorder Problem Resolve 2021-01-31 2021-01-31 Memoria of of d 08-22 22:29:25 22:29:25 l magnesium magnesium 00:00: Herm naeem metabolism metabolism 00 (disorder) (disorder) Resolved 08/23/2011 Problem 01/31/2021 [facility] Hyperglyce Hyperglyc Problem Resolve 2021-01-31 2021-01-31 Memoria maryam emia d 08-19 22:29:25 22:29:25 l (disorder) (disorder) 00:00: He rmann Resolved 00 08/20/2011 Problem 01/31/2021 [facility] Ketoacidos Ketoacido Problem Resolve 2021-01-31 2021-01-31 Memoria is in sis in d 22:29:25 22:29:25 l diabetes diabetes 00:00: Jake gonzalez mellitus mellitus 00 (disorder) (disorder) Resolved 08/19/2011 Problem 01/31/2021 [facility] DKA DKA Problem Resolve 2013-04-22 2013-04-22 Memoria (diabetic (diabetic d 04:46:33 04:46:33 l ketoacidos ketoacidos 00:00: Tyrel thompson) es) 00 Resolved 08/19/2011 Problem 04/22/2013 [facility] History of Past Illness Condition Condition Condition Status Onset Resolution Last Treating Co mments Source Name Details Category Date Date Treatment Clinician Date Discharge Discharge Problem 2014-06-28 2014-06-28 Memoria Diagnosis: Diagnosis: 06-26 16:34:37 16:34:37 l Gastropare Gastropare 06:00: Tyrel canales sis sis 00 06/26/2014 06/28/2014 [facility] Hyperglyce Hyperglyc Problem Inactiv 2012-03-16 2012-03-16 Memoria maryam emia e 3- 09:11:30 09:11:30 l Inactive 00:00: Vin 08/20/2011 00 Problem 03/16/2012 [facility] Allergies, Adverse Reactions, Alerts [...] Branch MORPHINE DRUG Active ITCHING Univers INGREDI 9-29 ity of 00:00: [place] 00 Medical Branch [...] See numbness Univers sin ty to comments - ity of adverse 00:00: [place] reaction 00 [...] Anaphylaxis 2016- Liver [facility] antoin Allergy 01-03 failure [...] SL EH ANTOIN 01-03 MONOHYD/ 00:00: M-CRYST PENICILL Allergy Active High [facility] INS 01-03 00:00: 00 ZOLPIDEM Allergy Active Other [facility] 01-03 00:00: 00 LISINOPR Allergy Active Other [facility] IL 01-03 00:00: 00 GUAIFENE Allergy Active Other [facility] SIN 01-03 00:00: 00 Penicill Drug Active [facility] Allergy Breath 01-03 [facility]: Medical 00 [place] Nitrofur Allergy Active Anaphylaxis Other [place] antoin [...] C INGREDI 6-25 ity of TROMETHA 00:00: [place] MINE 00 Medical Branch Ketorola Propensi Active Swelling THROAT Meth frantz c ty to 6-25 st Trometha adverse 00:00: Hospita mine reaction 00 l s to drug Ketorola Allergy Active Swelling throatthr [facility] c to 6-25 oatthroat Health Trometha substanc 00:00: mine e 00 Phenylep Propensi Active Hives Other Method i hrine ty to 4 reaction( st adverse 00:00: s): Hives Hospit [...] eep walkingco nfusionco nfusionco nfusionSl eep walking Hydrocod Propensi Active Other (See Me thodi one-Pota ty to Comments) 01-13 st ssium adverse 00:00: Hospita [place] reaction 00 l s to drug Codeine Propensi Active Other (See Other Met hodi ty to Comments) 01-13 reaction( st adverse 00:00: s): Other Hospit a reaction 00 (see l s to comments) drug PROLEX DRUG Active Other-Cmnt Univer s [...] 00:00: [place] reaction 00 Medical s Branch Penicill Allergy Active Shortness of 2010-06 Other U T ins to breath 2 reaction( Health substanc 00:00: s): e 00 HivesAirw ay closure PENICILL Drug Active Anaphylaxis 2010-06 Uni vers INS Class 2 ity of 00:00: [place] 00 Medical Branch [...] Adhesive Active Memori a Tape Tape l [place] Ambien Ambien Active Memoria l [place] Prolex Prolex Active Memoria DM DM l Vin penicill Drug Active [facility] lisinopr Drug Active [facility] Ambien Drug Active [facility] Prolixin Drug Active [facility] penicill Drug Active [facility] lisinopr Drug Active [facility] Ambien Drug Active [facility] Prolixin Drug Active [facility] Tape Other Active [facility] penicill Drug Active [facility] lisinopr Drug Active [facility] Ambien Drug Active [facility] Prolixin Drug Active [facility] codeine Drug Active [facility] penicill Drug Active [facility] lisinopr Drug Active [facility] Ambien Drug Active [facility] Prolixin Drug Active [facility] codeine Drug Active [facility] penicill Drug Active [facility] lisinopr Drug Active [facility] Ambien Drug Active [facility] Prolixin Drug Active [facility] penicill Drug Active [facility] lisinopr Drug Active [facility] Ambien Drug Active [facility] Prolixin Drug Active [facility] penicill Drug Active [facility] lisinopr Drug Active [facility] Ambien Drug Active [facility] Prolixin Drug Active [facility] Social History Social Habit Start Date Stop Date Quantity Comments Source History of tobacco Cigarette Smoker [facility] use [facility] Exposure to Yes [facility] SARS-CoV-2 (event) Hospit al Alcohol intake 2021-06-18 2021-06-18 Ex-drinker [facility] 00:00:00 00:00:00 (finding) Hospital Tobacco use and 2021-05-14 2021-05-14 Smokeless tobacco [facility] exposure 00:00:00 00:00:00 non-user Hospital Cigarettes smoked 2021-05-14 2021-05-14 [facility] current (pack per 00:00:00 00:00:00 Hospita l day) - Reported Cigarette 2021-05-14 2021-05-14 [facility] pack-years 00:00:00 00:00:00 Hospital Social History 2020-12-24 2020-12-24 [facility] 15:49:37 15:49:37 Tobacco Comment 2017-11-12 2017-11-12 5 cigarettes per Met hodist 00:00:00 00:00:00 day Hospital Sex Ass[birth year] At [birth year] [facility] 00:00:00 00:00:00 Hospital Smoking Status Start Date Stop Date Source Smokes tobacco daily 2021-05-14 00:00:00 [facility] Former smoker 2020-06-27 00:00:00 2020-06-27 00:00:00 [facility] Medications Ordered Filled Start Stop Current Ordering Indication Dosage Frequency Signature Comments Components Source Medication Medication Date Date Medication? Clinician (SIG) Name Name calcium Yes 1334mg [id number] Take 1,334 Methodi acetate,domingo 1-18 [id number] mg by s t sphat bind, 13:02: 3D mouth 3 Hos whit (Phoslyra) 39 (three) l 667 mg (169 times a mg day. calcium)/5 mL solution cyproheptad Yes 4mg Q.[id number] Take 4 mg Methodi ine 1-18 [id number] by mouth [address] (PERIACTIN) 13:02: 3D (three) Hos whit 4 mg tablet 39 times a l day as needed for allergies. buPROPion 2022-0 Yes 300mg QD Take 300 Met hodi XL 1-[address] (WELLBUTRIN 13:02: mouth Hospi ta XL) 300 MG 39 daily. l 24 hr tablet ascorbic 2022-0 Yes 500mg Q.[id number] Take 500 Methodi acid, 1-[id number] vitamin C, 13:02: 3D [...] jo-ann 39 l calcium 2021-0 Yes 667mg Q.[id number] Take 667 Methodi acetate 1-[id number] (PHOSLO) 13:02: 3D mouth [...] 39 nightly. l calcium 2021-0 Yes 1334mg Q.[id number] Take 1,334 Methodi acetate,domingo 1-18 [id number] mg by s t sphat bind, 13:02: 3D mouth 3 Hos whit (Phoslyra) 39 (three) l 667 mg (169 times a mg day. calcium)/5 mL solution cyproheptad 2021-0 Yes 4mg Q.[id number] Take 4 mg Methodi ine 1-18 [id number] by mouth [address] (PERIACTIN) 13:02: 3D (three) Hos whit 4 mg tablet 39 times a l day as needed for allergies. buPROPion 2021-0 Yes 300mg QD Take 300 Met hodi XL 1-[address] (WELLBUTRIN 13:02: mouth Hospi ta XL) 300 MG 39 daily. l 24 hr tablet ascorbic 2021-0 Yes 500mg Q.[id number] Take 500 Methodi acid, 1-[id number] vitamin C, 13:02: 3D [...] jo-ann 39 l calcium 2021-0 Yes 667mg Q.[id number] Take 667 Methodi acetate 1-[id number] (PHOSLO) 13:02: 3D mouth [...] 39 nightly. l calcium 2021-0 Yes 1334mg Q.[id number] Take 1,334 Methodi acetate,domingo 1-18 [id number] mg by s t sphat bind, 13:02: 3D mouth 3 Hos whit (Phoslyra) 39 (three) l 667 mg (169 times a mg day. calcium)/5 mL solution cyproheptad 0 Yes 4mg Q.[id number] Take 4 mg Methodi ine 1-18 [id number] mouth [address] (PERIACTIN) 13:02: 3D (three) Hos whit 4 mg tablet 39 times a l day as needed for allergies. buPROPion 0 Yes 300mg QD Take 300 Met hodi XL 1-[address] (WELLBUTRIN 13:02: mouth Hospi ta XL) 300 MG 39 daily. l 24 hr tablet ascorbic 2021-0 Yes 500mg Q.[id number] Take 500 Methodi acid, 1-[id number] vitamin C, 13:02: 3D [...] jo-ann 39 l calcium 2021-0 Yes 667mg Q.[id number] Take 667 Methodi acetate 1-[id number] (PHOSLO) 13:02: 3D mouth [...] cholecalcif 202-0 Yes 5000U Take 5,000 Methodi masni, 1-[address] vitamin D3, 13:02: [...] 39 nightly. l calcium 2021-0 Yes 1334mg Q.[id number] Take 1,334 Methodi acetate,domingo 1-18 [id number] mg by s t sphat bind, 13:02: 3D mouth 3 Hos whit (Phoslyra) 39 (three) l 667 mg (169 times a mg day. calcium)/5 mL solution cyproheptad 2021-0 Yes 4mg Q.[id number] Take 4 mg Methodi ine 1-18 [id number] by mouth [address] (PERIACTIN) 13:02: 3D (three) Hos whit 4 mg tablet 39 times a l day as needed for allergies. buPROPion 2021-0 Yes 300mg QD Take 300 Met hodi XL 1-[address] (WELLBUTRIN 13:02: mouth Hospi ta XL) 300 MG 39 daily. l 24 hr tablet ascorbic 2021-0 Yes 500mg Q.[id number] Take 500 Methodi acid, 1-18 [id number] mg by [facility] vitamin C, 13:02: 3D [...] jo-ann 39 l calcium 2021-0 Yes 667mg Q.[id number] Take 667 [facility] acetate 1-[id number] (PHOSLO) 13:02: 3D mouth [...] 39 nightly. l calcium 2021-0 Yes 1334mg Q.[id number] Take 1,334 [facility] acetate,domingo 1-18 [id number] mg by s t sphat bind, 13:02: 3D mouth 3 Hos whit (Phoslyra) 39 (three) l 667 mg (169 times a mg day. calcium)/5 mL solution cyproheptad 2021-0 Yes 4mg Q.90804180 Take 4 mg [facility] ine 1-18 [id number] [address] mouth [address] (PERIACTIN) 13:02: 3D (three) Hos whit 4 mg tablet 39 times a l day as needed for allergies. buPROPion 2021-0 Yes 300mg QD Take 300 Met hodi XL 1-[address] (WELLBUTRIN 13:02: mouth Hospi ta XL) 300 MG 39 daily. l 24 hr tablet ascorbic 2021-0 Yes 500mg Q.[id number] Take 500 [facility] acid, 1-[id number] vitamin C, 13:02: 3D [...] jo-ann 39 l calcium 2021-0 Yes 667mg Q.59928512 Take 667 [facility] acetate 1-[id number] (PHOSLO) 13:02: 3D mouth [...] 39 nightly. l calcium 2021-0 Yes 1334mg Q.[id number] Take 1,334 [facility] acetate,domingo 1-18 [id number] mg by s t sphat bind, 13:02: 3D mouth 3 Hos whit (Phoslyra) 39 (three) l 667 mg (169 times a mg day. calcium)/5 mL solution cyproheptad 2021-0 Yes 4mg Q.29077274 Take 4 mg [facility] ine 1-18 [id number] by mouth [address] (PERIACTIN) 13:02: 3D (three) Hos whit 4 mg tablet 39 times a l day as needed for allergies. buPROPion 2021-0 Yes 300mg QD Take 300 Met hodi XL 1-[address] (WELLBUTRIN 13:02: mouth Hospi ta XL) 300 MG 39 daily. l 24 hr tablet ascorbic 2021-0 Yes 500mg Q.17127939 Take 500 [facility] acid, 1-[id number] vitamin C, 13:02: 3D [...] jo-ann 39 l calcium 2021-0 Yes 667mg Q.46017948 Take 667 [facility] acetate 1-[id number] (PHOSLO) 13:02: 3D mouth [...] 39 nightly. l calcium 2022-0 Yes 1334mg Q.94874034 Take 1,334 [facility] acetate,domingo 1-18 [id number] mg by s t sphat bind, 13:02: 3D mouth 3 Hos whit (Phoslyra) 39 (three) l 667 mg (169 times a mg day. calcium)/5 mL solution cyproheptad 2021-0 Yes 4mg Q.86166626 Take 4 mg [facility] ine 1-18 [id number] by mouth [address] (PERIACTIN) 13:02: 3D (three) Hos whit 4 mg tablet 39 times a l day as needed for allergies. buPROPion 2021-0 Yes 300mg QD Take 300 Met hodi XL 1-[address] (WELLBUTRIN 13:02: mouth Hospi ta XL) 300 MG 39 daily. l 24 hr tablet ascorbic 2021-0 Yes 500mg Q.71772052 Take 500 [facility] acid, 1-[id number] vitamin C, 13:02: 3D [...] jo-ann 39 l calcium 2021-0 Yes 667mg Q.32146393 Take 667 [facility] acetate 1-[id number] (PHOSLO) 13:02: 3D mouth [...] 39 nightly. l calcium 2021-0 Yes 1334mg Q.53501240 Take 1,334 [facility] acetate,domingo 1-18 [id number] mg by s t sphat bind, 13:02: 3D mouth 3 Hos whit (Phoslyra) 39 (three) l 667 mg (169 times a mg day. calcium)/5 mL solution cyproheptad 0 Yes 4mg Q.76755438 Take 4 mg [facility] ine 1-18 [id number] mouth [address] (PERIACTIN) 13:02: 3D (three) Hos whit 4 mg tablet 39 times a l day as needed for allergies. buPROPion 2022-0 Yes 300mg QD Take 300 Met [facility]odi XL 1-[address] (WELLBUTRIN 13:02: mouth Hospi ta XL) 300 MG 39 daily. l 24 hr tablet ascorbic 2022-0 Yes 500mg Q.77945763 Take 500 [facility] acid, 1-[id number] vitamin C, 13:02: 3D [...] jo-ann 39 l calcium 2022-0 Yes 667mg Q.[id number] Take 667 [facility] acetate 1-[id number] (PHOSLO) 13:02: 3D mouth [...] 13:02: nightly. Hosp jo-ann 39 l cholecalcif 0 Yes 5000U Take 5,000 [facility] mansi, 1-18 [...] 39 nightly. l calcium 0 Yes 1334mg Q.[id number] Take 1,334 [facility] acetate,domingo 1-18 [id number] mg by s t sphat bind, 13:02: 3D mouth 3 Hos whit (Phoslyra) 39 (three) l 667 mg (169 times a mg day. calcium)/5 mL solution cyproheptad 0 Yes 4mg Q.04189835 Take 4 mg [facility] ine 1-18 [id number] [address] mouth [address] (PERIACTIN) 13:02: 3D (three) Hos whit 4 mg tablet 39 times a l day as needed for allergies. buPROPion 0 Yes 300mg QD Take 300 Met hodi XL 1-[address] (WELLBUTRIN 13:02: mouth Hospi ta XL) 300 MG 39 daily. l 24 hr tablet ascorbic 2021-0 Yes 500mg Q.[id number] Take 500 [facility] acid, 1-[id number] vitamin C, 13:02: 3D [...] jo-ann 39 l calcium 2021-0 Yes 667mg Q.[id number] Take 667 [facility] acetate 1-[id number] (PHOSLO) 13:02: 3D mouth [...] 39 nightly. l calcium 2021-0 Yes 1334mg Q.09413637 Take 1,334 [facility] acetate,domingo 1-18 [id number] mg by s t sphat bind, 13:02: 3D mouth 3 Hos whit (Phoslyra) 39 (three) l 667 mg (169 times a mg day. calcium)/5 mL solution cyproheptad 2021-0 Yes 4mg Q.[id number] Take 4 mg [facility] ine 1-18 [id number] [address] mouth [address] (PERIACTIN) 13:02: 3D (three) Hos whit 4 mg tablet 39 times a l day as needed for allergies. buPROPion 2021-0 Yes 300mg QD Take 300 Met hodi XL 1-[address] (WELLBUTRIN 13:02: mouth Hospi ta XL) 300 MG 39 daily. l 24 hr tablet ascorbic 2021-0 Yes 500mg Q.[id number] Take 500 [facility] acid, 1-[id number] vitamin C, 13:02: 3D [...] jo-ann 39 l calcium 2021-0 Yes 667mg Q.86119910 Take 667 [facility] acetate 1-[id number] (PHOSLO) 13:02: 3D mouth [...] 39 nightly. l calcium 2021-0 Yes 1334mg Q.[id number] Take 1,334 [facility] acetate,domingo 1-18 [id number] mg by s t sphat bind, 13:02: 3D mouth 3 Hos whit (Phoslyra) 39 (three) l 667 mg (169 times a mg day. calcium)/5 mL solution cyproheptad 2021-0 Yes 4mg Q.74535494 Take 4 mg [facility] ine 1-18 [id number] [address] mouth [address] (PERIACTIN) 13:02: 3D (three) Hos whit 4 mg tablet 39 times a l day as needed for allergies. buPROPion 2021-0 Yes 300mg QD Take 300 Met hodi XL 1-[address] (WELLBUTRIN 13:02: mouth Hospi ta XL) 300 MG 39 daily. l 24 hr tablet ascorbic 2021-0 Yes 500mg Q.95814849 Take 500 [facility] acid, 1-[id number] vitamin C, 13:02: 3D [...] jo-ann 39 l calcium 2021-0 Yes 667mg Q.[id number] Take 667 [facility] acetate 1-[id number] (PHOSLO) 13:02: 3D mouth [...] 39 nightly. l calcium 2021-0 Yes 1334mg Q.[id number] Take 1,334 [facility] acetate,domingo 1-18 [id number] mg by s t sphat bind, 13:02: 3D mouth 3 Hos whit (Phoslyra) 39 (three) l 667 mg (169 times a mg day. calcium)/5 mL solution cyproheptad 2021-0 Yes 4mg Q.[id number] Take 4 mg [facility] ine 1-18 [id number] [address] mouth [address] (PERIACTIN) 13:02: 3D (three) Hos whit 4 mg tablet 39 times a l day as needed for allergies. buPROPion 2021-0 Yes 300mg QD Take 300 [facility]odi XL 1-[address] (WELLBUTRIN 13:02: mouth Hospi ta XL) 300 MG 39 daily. l 24 hr tablet ascorbic 2021-0 Yes 500mg Q.88053108 Take 500 [facility] acid, 1-[id number] vitamin C, 13:02: 3D [...] jo-ann 39 l calcium 2021-0 Yes 667mg Q.11220865 Take 667 [facility] acetate 1-[id number] (PHOSLO) 13:02: 3D mouth [...] 39 nightly. l calcium 2022-0 Yes 1334mg Q.[id number] Take 1,334 [facility] acetate,domingo 1-18 [id number] mg by s t sphat bind, 13:02: 3D mouth 3 Hos whit (Phoslyra) 39 (three) l 667 mg (169 times a mg day. calcium)/5 mL solution cyproheptad 0 Yes 4mg Q.[id number] Take 4 mg [facility] ine 1-18 [id number] [address] mouth [address] (PERIACTIN) 13:02: 3D (three) Hos whit 4 mg tablet 39 times a l day as needed for allergies. buPROPion 0 Yes 300mg QD Take 300 Met [facility]odi XL 1-[address] (WELLBUTRIN 13:02: mouth Hospi ta XL) 300 MG 39 daily. l 24 hr tablet ascorbic 2021-0 Yes 500mg Q.[id number] Take 500 [facility] acid, 1-[id number] vitamin C, 13:02: 3D [...] jo-ann 39 l calcium 2021-0 Yes 667mg Q.[id number] Take 667 [facility] acetate 1-[id number] (PHOSLO) 13:02: 3D mouth [...] 39 nightly. l calcium 2021-0 Yes 1334mg Q.[id number] Take 1,334 [facility] acetate,domingo 1-18 [id number] mg by s t sphat bind, 13:02: 3D mouth 3 Hos whit (Phoslyra) 39 (three) l 667 mg (169 times a mg day. calcium)/5 mL solution cyproheptad 0 Yes 4mg Q.[id number] Take 4 mg [facility] ine 1-18 [id number] [address] mouth [address] (PERIACTIN) 13:02: 3D (three) Hos whit 4 mg tablet 39 times a l day as needed for allergies. buPROPion 2022-0 Yes 300mg QD Take 300 Met hodi XL 1-[address] (WELLBUTRIN 13:02: mouth Hospi ta XL) 300 MG 39 daily. l 24 hr tablet ascorbic 2022-0 Yes 500mg Q.[id number] Take 500 [facility] acid, 1-[id number] vitamin C, 13:02: 3D [...] jo-ann 39 l calcium 2021-0 Yes 667mg Q.64512537 Take 667 [facility] acetate 1-[id number] (PHOSLO) 13:02: 3D mouth [...] cholecalcif 2022-0 Yes 5000U Take 5,000 [facility] masni, 1-[address] vitamin D3, 13:02: [...] jo-ann 39 l calcium 2-0 Yes 667mg Q.[id number] Take 667 [facility] acetate 1-[id number] (PHOSLO) 13:02: 3D mouth [...] 39 nightly. l calcium 2-0 Yes 1334mg Q.[id number] Take 1,334 [facility] acetate,domingo 1-18 [id number] mg by s t sphat bind, 13:02: 3D mouth 3 Hos whit (Phoslyra) 39 (three) l 667 mg (169 times a mg day. calcium)/5 mL solution cyproheptad 0 Yes 4mg Q.[id number] Take 4 mg [facility] ine 1-18 [id number] by mouth [address] (PERIACTIN) 13:02: 3D (three) Hos whit 4 mg tablet 39 times a l day as needed for allergies. buPROPion 0 Yes 300mg QD Take 300 Met hodi XL 1-[address] (WELLBUTRIN 13:02: mouth Hospi ta XL) 300 MG 39 daily. l 24 hr tablet ascorbic 2021-0 Yes 500mg Q.[id number] Take 500 [facility] acid, 1-[id number] vitamin C, 13:02: 3D [...] mg at night vancomycin 2020-06- No 750mg Q.80262615 Infuse 750 [facility] 750 mg in 07-08 [id number] [address] sodium 00:00: 05:59 3W venous [facility] chloride 00 :00 catheter 3 l 0.9% 250 mL (three) IVPB times a week for 19 days. Administer 3 times weekly in dialysis vancomycin 2020-06- No 750mg Q.84037766 Infuse 750 [facility] 750 mg in 07-08 [id number] sodium 00:00: 05:59 3W venous [facility] chloride 00 :00 catheter 3 l 0.9% 250 mL (three) IVPB times a week for 19 days. Administer 3 times weekly in dialysis vancomycin 2020-06- No 750mg Q.74470196 Infuse 750 [facility] 750 mg in 07-08 [id number] sodium 00:00: 05:59 3W venous [facility] chloride 00 :00 catheter 3 l 0.9% 250 mL (three) IVPB times a week for 19 days. Administer 3 times weekly in dialysis vancomycin 2020-06- No 750mg Q.97787806 Infuse 750 [facility] 750 mg in 07-08 [id number] sodium 00:00: 05:59 3W venous [facility] chloride 00 :00 catheter 3 l 0.9% 250 mL (three) IVPB times a week for 19 days. Administer 3 times weekly in dialysis vancomycin 2020-06- No 750mg Q.82284334 Infuse 750 [facility] 750 mg in 07-08 [id number] mg [address] sodium 00:00: 05:59 3W venous [facility] chloride 00 :00 catheter 3 l 0.9% 250 mL (three) IVPB times a week for 19 days. Administer 3 times weekly in dialysis vancomycin 2020-06- No 750mg Q.33109652 Infuse 750 [facility] 750 mg in 07-08 [id number] mg [address] sodium 00:00: 05:59 3W venous [facility] chloride 00 :00 catheter 3 l 0.9% 250 mL (three) IVPB times a week for 19 days. Administer 3 times weekly in dialysis vancomycin 2020-06- No 750mg Q.88234243 Infuse 750 [facility] 750 mg in 07-08 [id number] sodium 00:00: 05:59 3W venous [facility] chloride 00 :00 catheter 3 l 0.9% 250 mL (three) IVPB times a week for 19 days. Administer 3 times weekly in dialysis vancomycin 2020-06- No 750mg Q.24182150 Infuse 750 [facility] 750 mg in 07-08 [id number] mg [address] a [address] sodium 00:00: 05:59 3W venous [facility] chloride 00 :00 catheter 3 l 0.9% 250 mL (three) IVPB times a week for 19 days. Administer 3 times weekly in dialysis vancomycin 2020-06- No 750mg Q.39595128 Infuse 750 [facility] 750 mg in 07-08 [id number] mg into a [address] sodium 00:00: 05:59 3W venous [facility] chloride 00 :00 catheter 3 l 0.9% 250 mL (three) IVPB times a week for 19 days. Administer 3 times weekly in dialysis vancomycin 2020-06- No 750mg Q.10563893 Infuse 750 [facility] 750 mg in 07-08 [id number] a [address] sodium 00:00: 05:59 3W venous [facility] chloride 00 :00 catheter 3 l 0.9% 250 mL (three) IVPB times a week for 19 days. Administer 3 times weekly in dialysis vancomycin 2020-06- No 750mg Q.56134612 Infuse 750 [facility] 750 mg in 07-08 [id number] a [address] sodium 00:00: 05:59 3W venous [facility] chloride 00 :00 catheter 3 l 0.9% 250 mL (three) IVPB times a week for 19 days. Administer 3 times weekly in dialysis vancomycin 2020-06- No 750mg Q.60976555 Infuse 750 [facility] 750 mg in 07-08 [id number] mg into a [address] sodium 00:00: 05:59 3W venous [facility] chloride 00 :00 catheter 3 l 0.9% 250 mL (three) IVPB times a week for 19 days. Administer 3 times weekly in dialysis vancomycin 2020-06- No 750mg Q.15779410 Infuse 750 [facility] 750 mg in 07-08 [id number] sodium 00:00: 05:59 3W venous [facility] chloride 00 :00 catheter 3 l 0.9% 250 mL (three) IVPB times a week for 19 days. Administer 3 times weekly in dialysis HYDROcodone 2020-06 1{tbl} Q6H Take 1 [facility] -acetaminop 06-[address] [place] (Dinglepharb) 00:00: 05:59 mouth Hosp jo-ann 5-325 mg 00 :00 every 6 l per tablet (six) hours as needed for severe pain for up to 5 days .acute pain. Max Daily Amount: 4 tablets HYDROcodone 2020-06 1{tbl} Q6H Take 1 [facility] -acetaminop 06-[address] hen ([place]pharb) 00:00: 05:59 mouth Hosp jo-ann 5-325 mg 00 :00 every 6 l per tablet (six) hours as needed for severe pain for up to 5 days .acute pain. Max Daily Amount: 4 tablets HYDROcodone 2020-06 1{tbl} Q6H Take 1 [facility] -acetaminop 2-29 -[address] hen ([place]pharb) 00:00: 05:59 mouth Hosp jo-ann 5-325 mg 00 :00 every 6 l per tablet (six) hours as needed for severe pain for up to 5 days .acute pain. Max Daily Amount: 4 tablets HYDROcodone 2020-0628 1{tbl} Q6H Take 1 [facility] -acetaminop 2-29 -[address] hen ([place]arb) 00:00: 05:59 mouth Hosp jo-ann 5-325 mg 00 :00 every 6 l per tablet (six) hours as needed for severe pain for up to 5 days .acute pain. Max Daily Amount: 4 tablets HYDROcodone 2020-0628 1{tbl} Q6H Take 1 [facility] -acetaminop 2-29 -[address] hen ([place]) 00:00: 05:59 mouth Hosp jo-ann 5-325 mg 00 :00 every 6 l per tablet (six) hours as needed for severe pain for up to 5 days .acute pain. Max Daily Amount: 4 tablets HYDROcodone 2020-0628 1{tbl} Q6H Take 1 [facility] -acetaminop 2-29 -[address] hen ([place]arb) 00:00: 05:59 mouth Hosp jo-ann 5-325 mg 00 :00 every 6 l per tablet (six) hours as needed for severe pain for up to 5 days .acute pain. Max Daily Amount: 4 tablets HYDROcodone 2020-06 No 1{tbl} Q6H Take 1 [facility] -acetaminop 2-29 -[address] hen ([place]) 00:00: 05:59 mouth Hosp jo-ann 5-325 mg 00 :00 every 6 l per tablet (six) hours as needed for severe pain for up to 5 days .acute pain. Max Daily Amount: 4 tablets HYDROcodone 2020-06 No [id number] 1{tbl} Q6H Take 1 [facility] -acetaminop 2-29 -[address] hen ([place]) 00:00: 05:59 mouth Hosp jo-ann 5-325 mg 00 :00 every 6 l per tablet (six) hours as needed for severe pain for up to 5 days .acute pain. Max Daily Amount: 4 tablets HYDROcodone 2020-06- No [id number] 1{tbl} Q6H Take 1 [facility] -acetaminop 2-29 -[address] hen ([place]) 00:00: 05:59 mouth Hosp jo-ann 5-325 mg 00 :00 every 6 l per tablet (six) hours as needed for severe pain for up to 5 days .acute pain. Max Daily Amount: 4 tablets HYDROcodone 2020-06- No [id number] 1{tbl} Q6H Take 1 [facility] -acetaminop 2-29 - tablet by [facility] ([place]) 00:00: 05:59 mouth Hosp jo-ann 5-325 mg 00 :00 every 6 l per tablet (six) hours as needed for severe pain for up to 5 days .acute pain. Max Daily Amount: 4 tablets HYDROcodone 2020-06- No [id number] 1{tbl} Q6H Take 1 [facility] -acetaminop 2-29 - tablet by [facility] hen ([place]) 00:00: 05:59 mouth Hosp jo-ann 5-325 mg 00 :00 every 6 l per tablet (six) hours as needed for severe pain for up to 5 days .acute pain. Max Daily Amount: 4 tablets HYDROcodone 2020-06- No [id number] 1{tbl} Q6H Take 1 [facility] -acetaminop 2-29 -[address] hen ([place]) 00:00: 05:59 mouth Hosp jo-ann 5-325 mg 00 :00 every 6 l per tablet (six) hours as needed for severe pain for up to 5 days .acute pain. Max Daily Amount: 4 tablets HYDROcodone 2020-06- No [id number] 1{tbl} Q6H Take 1 [facility] -acetaminop 2-29 -[address] hen ([place]) 00:00: 05:59 mouth Hosp jo-ann 5-325 mg [...] 50mg QD Take 50 mg [facility] one 16 12-[address] (ALDACTONE) 10:21: 00:00 [...] l daily for 30 days. clopidogreL 2020-06- 75mg QD Take 1 Met hodi (PLAVIX) [...] 30 per tablet days. HYDROcodone 2020-06 No 2{tbl} Q8H Take 2 Methodi -acetaminop 2-05 12-13 tablets by s t hen (Dinglepharb) 00:00: 05:59 mouth Hosp jo-ann 5-325 mg 00 :00 every 8 l per tablet (eight) hours as needed for severe pain for up to 7 days .acute pain. Max Daily Amount: 6 tablets HYDROcodone 2020-06 2{tbl} Q8H Take 2 [facility]i -acetaminop 2-05 12-13 tablets by s t hen (Dinglepharb) 00:00: 05:59 mouth Hosp jo-ann 5-325 mg 00 :00 every 8 l per tablet (eight) hours as needed for severe pain for up to 7 days .acute pain. Max Daily Amount: 6 tablets HYDROcodone 2020-06 2{tbl} Q8H Take 2 [facility]i -acetaminop 2-05 12-13 tablets by s t hen (Dinglepharb) 00:00: 05:59 mouth Hosp jo-ann 5-325 mg 00 :00 every 8 l per tablet (eight) hours as needed for severe pain for up to 7 days .acute pain. Max Daily Amount: 6 tablets HYDROcodone 2020-0628 2{tbl} Q8H Take 2 [facility]i -acetaminop 2-05 12-13 tablets by s t hen (Dinglepharb) 00:00: 05:59 mouth Hosp jo-ann 5-325 mg 00 :00 every 8 l per tablet (eight) hours as needed for severe pain for up to 7 days .acute pain. Max Daily Amount: 6 tablets HYDROcodone 2020-0628 2{tbl} Q8H Take 2 [facility]i -acetaminop 2-05 12-13 tablets by s t hen (Dinglepharb) 00:00: 05:59 mouth Hosp jo-ann 5-325 mg 00 :00 every 8 l per tablet (eight) hours as needed for severe pain for up to 7 days .acute pain. Max Daily Amount: 6 tablets HYDROcodone 2020-0628 2{tbl} Q8H Take 2 Methodi -acetaminop 2-05 12-13 tablets by s t hen ([place]pharb) 00:00: 05:59 mouth Hosp jo-ann 5-325 mg 00 :00 every 8 l per tablet (eight) hours as needed for severe pain for up to 7 days .acute pain. Max Daily Amount: 6 tablets HYDROcodone 2020-06 2{tbl} Q8H Take 2 Methodi -acetaminop 2-05 12-13 tablets by s t hen (D[place]pharb) 00:00: 05:59 mouth Hosp jo-ann 5-325 mg 00 :00 every 8 l per tablet (eight) hours as needed for severe pain for up to 7 days .acute pain. Max Daily Amount: 6 tablets HYDROcodone 2020-06 2{tbl} Q8H Take 2 Methodi -acetaminop 2-05 12-13 tablets by s t hen ([place]pharb) 00:00: 05:59 mouth Hosp jo-ann 5-325 mg 00 :00 every 8 l per tablet (eight) hours as needed for severe pain for up to 7 days .acute pain. Max Daily Amount: 6 tablets HYDROcodone 2020-06 2{tbl} Q8H Take 2 Methodi -acetaminop 2-05 12-13 tablets by s t hen (D[place]pharb) 00:00: 05:59 mouth Hosp jo-ann 5-325 mg 00 :00 every 8 l per tablet (eight) hours as needed for severe pain for up to 7 days .acute pain. Max Daily Amount: 6 tablets HYDROcodone 2020-06 2{tbl} Q8H Take 2 Methodi -acetaminop 2-05 12-13 tablets by s t hen ([place]pharb) 00:00: 05:59 mouth Hosp jo-ann 5-325 mg 00 :00 every 8 l per tablet (eight) hours as needed for severe pain for up to 7 days .acute pain. Max Daily Amount: 6 tablets HYDROcodone 2020-0628 2{tbl} Q8H Take 2 [facility] -acetaminop 2-05 12-13 tablets by s t hen ([place]pharb) 00:00: 05:59 mouth Hosp jo-ann 5-325 mg 00 :00 every 8 l per tablet (eight) hours as needed for severe pain for up to 7 days .acute pain. Max Daily Amount: 6 tablets predniSONE 2020-06 No [id number] Take M ethodi (DELTASONE) 07-18 12-05 Prednisone s t 50 mg 00:00: 00:00 50mg 13 Hospita tablet 00 :00 hours, 7 l hours, and 1 hour prior to scheduled procedure on 05/19/2021 for contrast allergy prophylaxi s. predniSONE 2020-06- No [id number] Take M ethodi (DELTASONE) 07-18 12-05 Prednisone s t 50 mg 00:00: 00:00 50mg 13 Hospita tablet 00 :00 hours, 7 l hours, and 1 hour prior to scheduled procedure on 05/19/2021 for contrast allergy prophylaxi s. predniSONE 2020-06- No [id number] Take M ethodi (DELTASONE) 07-18 12-05 Prednisone s t 50 mg 00:00: 00:00 50mg 13 Hospita tablet 00 :00 hours, 7 l hours, and 1 hour prior to scheduled procedure on 05/19/2021 for contrast allergy prophylaxi s. predniSONE 2020-06- No [id number] Take M ethodi (DELTASONE) 07-18 12-05 Prednisone s t 50 mg 00:00: 00:00 50mg 13 Hospita tablet 00 :00 hours, 7 l hours, and 1 hour prior to scheduled procedure on 05/19/2021 for contrast allergy prophylaxi s. predniSONE 2020-06- No [id number] Take M ethodi (DELTASONE) 07-18 12-05 Prednisone s t 50 mg 00:00: 00:00 50mg 13 Hospita tablet 00 :00 hours, 7 l hours, and 1 hour prior to scheduled procedure on 05/19/2021 for contrast allergy prophylaxi s. predniSONE 2020-06- No [id number] Take M ethodi (DELTASONE) 07-18 12-05 Prednisone s t 50 mg 00:00: 00:00 50mg 13 Hospita tablet 00 :00 hours, 7 l hours, and 1 hour prior to scheduled procedure on 05/19/2021 for contrast allergy prophylaxi s. predniSONE 2020-06- No [id number] Take M ethodi (DELTASONE) 07-18 12-05 Prednisone s t 50 mg 00:00: 00:00 50mg 13 Hospita tablet 00 :00 hours, 7 l hours, and 1 hour prior to scheduled procedure on 05/19/2021 for contrast allergy prophylaxi s. predniSONE 2020-06- No [id number] Take M ethodi (DELTASONE) 07-18 12-05 Prednisone s t 50 mg 00:00: 00:00 50mg 13 Hospita tablet 00 :00 hours, 7 l hours, and 1 hour prior to scheduled procedure on 05/19/2021 for contrast allergy prophylaxi s. predniSONE 2020-06- No [id number] Take M ethodi (DELTASONE) 07-18 12-05 Prednisone s t 50 mg 00:00: 00:00 50mg 13 Hospita tablet 00 :00 hours, 7 l hours, and 1 hour prior to scheduled procedure on 05/19/2021 for contrast allergy prophylaxi s. predniSONE 2020-06- No [id number] Take M ethodi (DELTASONE) 07-18 12-05 Prednisone [...] mouth ity of mg tablet 23:08: daily. [place] [address] [facility] folic 2020-06 Yes 800mg Take 800 [facility] acid/vit B 0-01 mg by ity of complex and 23:08: mouth [place] C 36 daily. Medical (DIALYVITE Branch 800 ORAL) linagliptin 2020-06 Yes Take by Uni vers (TRADJENTA) 0-01 mouth. ity of 5 mg tablet 23:08: [place] [address] [facility] spironolact 2020-06 Yes 50mg Take 50 mg [facility] one 50 mg 0-01 by mouth ity of tablet 23:08: daily. [place] [address] [facility] pravastatin 2020-06 Yes 40mg Take 40 mg [facility] 40 mg 0-01 by mouth ity of tablet 23:08: daily. [place] [address] [facility] Branch mv-mn/iron/ 2020-06 Yes 1{capsu Take 1 U nivers folic 0-01 le} capsule by ity of acid/herb 23:08: mouth [place] 190 36 daily. Medical (VITAMIN D3 Branch COMPLETE ORAL) SERTraline 2020-06 Yes 50mg Take 50 mg U nivers 50 mg 0-01 by mouth ity of tablet 23:08: daily. [place] [address] [facility] Branch calcium 2020-06 Yes 667mg Take 667 Unive rs acetate 667 0-01 mg by ity of mg capsule 23:08: mouth [place] (three) Medical times Branch daily with meals. cetirizine 2020-06 Yes 1{tbl} Take 1 Uni vers HCl/pseudoe 0-01 tablet by ity of phedrine 23:08: mouth [place] (ZYRTEC-D 36 daily. Medical ORAL) Branch furosemide 2020-06 Yes 40mg Take 40 mg U nivers 40 mg 0-01 by mouth 2 ity of tablet 23:08: (two) [place] [address] times Medical daily. Branch divalproex 2020-06 Yes 500mg Take 500 Un lori ER 0-01 mg by ity of (DEPAKOTE 23:08: mouth 2 [place] ER) 500 mg 36 (two) Medical 24 hr times Branch tablet daily. gabapentin 2020-06 Yes 100mg Take 100 Un lori 100 mg 0-01 mg by ity of capsule 23:08: mouth 2 [place] [address] (two) Medical times Branch daily. vitamin C 2020-06 Yes 2000mg Take 2,000 [facility] with sia 0-01 mg by ity of hips 23:08: mouth 2 [place] (VITAMIN C) (two) Medical 1,000 mg times Branch tablet daily. metoprolol 2020-06 Yes 50mg Take 50 mg U nivers tartrate 50 0-01 by mouth ity of mg tablet 23:08: daily. [place] [address] [facility] Branch folic 2020-06 Yes 800mg Take 800 [facility] acid/vit B 0-01 mg by ity of complex and 23:08: mouth [place] C 36 daily. Medical (DIALYVITE Branch 800 ORAL) linagliptin 2020-06 Yes Take by Uni vers (TRADJENTA) 0-01 mouth. ity of 5 mg tablet 23:08: [address] Branch spironolact 2020-06 Yes 50mg Take 50 mg [facility] one 50 mg 0-01 by mouth ity of tablet 23:08: daily. [place] [address] [facility] Branch pravastatin 2020-06 Yes 40mg Take 40 mg [facility] 40 mg 0-01 by mouth ity of tablet 23:08: daily. [address] Branch mv-mn/iron/ 2020-06 Yes 1{capsu Take 1 U nivers folic 0-01 le} capsule by ity of acid/herb 23:08: mouth [place] 190 daily. Medical (VITAMIN D3 Branch COMPLETE ORAL) SERTraline 2020-06 Yes 50mg Take 50 mg U nivers 50 mg 0-01 by mouth ity of tablet 23:08: daily. [address] Branch calcium 2020-06 Yes 667mg Take 667 Unive rs acetate 667 0-01 mg by ity of mg capsule 23:08: mouth 3 [place] (three) Medical times Branch daily with meals. cetirizine 2020-06 Yes 1{tbl} Take 1 Uni vers HCl/pseudoe 0-01 tablet by ity of phedrine 23:08: mouth [place] (ZYRTEC-D 36 daily. Medical ORAL) Branch furosemide [...] tramadol No Notes: Not Mem oria hydrochlori 811 to exceed l de 50 MG 11:14: 400mg/day. Her braden Oral Tablet 00 (Same As: Ultram) Simethicone No Notes: Mendoza janice 8-11 (Same as: l 01:36: Mylicon) epoetin Yes 2,000 unit Mendoza janice giovanny-epbx 8 = 1 mL, l 1999 19:37: IV, Vin units/mL 00 Q---, preservativ to be e-free given at injectable post solution Dialysis sessions, 0 Refill(s) gabapentin Yes 300 mg = 1 M emoria 300 MG Oral 8-10 cap, PO, l Capsule 19:34: --, # Herm naeem 00 13 cap, 0 Refill(s) amLODIPine Yes 10 mg = 1 Me moria 10 mg oral 8-10 tab, PO, l tablet 19:33: Daily, # [place] 00 30 tab, 2 Refill(s) busPIRone Yes 7.5 mg = 1 Me moria 7.5 mg oral 8-10 tab, PO, l tablet 19:33: BID, 0 Vin 00 Refill(s) buPROPion Yes 75 mg = 1 Mem oria 75 mg oral 8-10 tab, PO, l tablet 19:33: Daily, # [place] 00 14 tab, 0 Refill(s) Norvasc No Notes: Memoria 8-10 (Same as: l 17:35: Norvasc) Dextrose No [...] 01-27 not exceed l 09:29: 4 gm/day. [place] 00 (Same as: Tylenol) tramadol No Notes: Not Mem oria hydrochlori 01-27 to exceed l de 50 MG 09:29: 400mg/day. Her braden Oral Tablet 00 (Same As: Ultram) heparin No Notes: Memoria 01-27 porcine l 02:00: heparin Magnesium No Notes: Memori a Oxide 01-23 (Same as: l 22:54: Mag-Ox Vin 00 400) Magnesium oxide 774iq=962o g elemental magnesium Dose=____m g magnesium oxide (___mg elemental magnesium) Coreg No Notes: Memoria 01-23 Give with l 02:00: food. [place] (Same As: Coreg) Buspar No Notes: Memoria 01-22 (Same As: l 22:00: BuSpar) Vin 00 Fentanyl No Notes: Memoria 01-22 (Same as: l 21:06: Sublimaze) Vin 00 Preservati ve free. Norvasc No Notes: Memoria 01-22 (Same as: l 16:47: Norvasc) Vin 00 Wellbutrin No Notes: Memor ia 8-04 [...] oria 8-04 to exceed l 09:44: 400mg/day. [place] 00 (Same As: Ultram) Tylenol No Notes: Do Memor ia 01-22 not exceed l 09:44: 4 gm/day. [place] (Same as: Tylenol) Fentanyl No Notes: Memoria - (Same as: l 09:44: Sublimaze) [place] Preservati ve free. Fentanyl No Notes: Memoria 8-04 (Same as: l 04:46: Sublimaze) [place] 00 Preservati ve free. Fentanyl No Notes: [...] 01-21 25 mL, l (D50W) 20:01: Route: [place] 00 IVP, Drug Form: INJ, Dosing Weight [...] Lispro 01-21 (Same as: l 20:01: Humalog) [place] Roll in palms of hands gently; Do [...] ine 01-21 tab, l 18:00: Route: PO, [place] Drug form: TAB, TID, Dosing Weight 72, [...] 0.9% 01-21 Same as: l 17:31: BD [place] Posiflush Sterile propofol 10 No Notes: If M emoria mg/mL 01-21 Diprivan - l (Titrate.) 17:31: change Nidia nn IV 1,000 mg 00 bottle & tubing every 12 hr Per state nursing law propofol can only be given by a nurse if patient is intubated or being intubated (unless the nurse is a PRODUCT SUPPORT SALES REPRESENTATIVE). Same as: Diprivan midazolam No Route: IV, [...] No Notes: SEE Me moria 0.83 MG/ML - RT l Inhalant 13:16: DOCUMENTAT Her braden [...] 00 tab, 2 Refill(s), Pharmacy: [facility], 154.94, cm, 12/24/20 10:43:00 CDT, Height, 71.818, kg, 12/24/20 10:43:00 CDT, Weight {2 (480 ML 2020-0 Yes See Memoria Magnesium 7-06 Instructio l Sulfate 18:12: ns, take Jake n 0.0277 00 as MEQ/ML / directed, potassium give sulfate clenpiq if 0.0374 not MEQ/ML / covered by sodium insurance, sulfate # 1 ea, 0 0.257 Refill(s), MEQ/ML Oral Pharmacy: Solution) } [facility] [Suprep 808, Bowel Prep 154.94, [...] day, # 90 tab, 3 Refill(s), [facility], 154.94, cm, 12/24/20 10:43:00 CDT, Height, 71.818, kg, 12/24/20 10:43:00 CDT, Weight Zinc 0 Yes 140 mg, Memoria 7-06 PO, Daily, l 15:54: 0 Refill(s) Elderberry 0 Yes 0 Memoria preparation 7-06 Refill(s) l 15:54: [place] 00 Buspar Yes PO, BID, 0 Memor ia 7-06 Refill(s) l 15:53: [place] 00 Dialyvite 2020-0 Yes 0 Memoria 5000 706 Refill(s) l 15:53: [place] 00 busPIRone 0 Yes 7.5mg Take 7.5 [...] each day. tablet ascorbic 0 Yes 500mg Q.89338104 Take 500 UT acid 5-15 [id number] mg by Health (Vitamin C) 00:00: 3D mouth 3 500 MG 00 (three) tablet times a day. zinc 0 Yes DAILY Univers sulfate 50 5-10 ity of mg zinc 00:00: [place] (220 mg) Medical capsule Branch sucralfate Yes 1{tbl} QD Take 1 [facility] (Carafate) 5-10 tablet by Heal th 1 g tablet 00:00: mouth 1 00 (one) time each day. ondansetron Yes 4mg Take 4 mg U nivers 4 mg 4-13 by mouth ity of disintegrat 00:00: [place]. [place] tablet 00 Medical Branch GLIPIZIDE 5 Yes [id number] TAKE 1 Univers mg tablet 4-06 TABLET BY ity o f 00:00: MOUTH [place] 00 TWICE Medical DAILY Branch BEFORE BREAKFAST AND BEFORE SUPPER doxazosin 4 2020- No 4mg Take 4 mg Univers mg tablet 06-27-07 by mouth 2 ity of 10:52: 00:00 (two) [place] 22 :00 times Medical daily. Branch doxazosin 4 Yes 4mg Take 1 Univ ers mg tablet -07 tablet by ity o f 00:00: mouth at [place] 00 bedtime. Medical Branch doxazosin 4 Yes 4mg Take 1 Univ ers mg tablet -07 tablet by ity o f 00:00: mouth at [place] 00 bedtime. Medical Branch glipiZIDE 5 2019-06- No [id number] 5mg Take 1 Univers mg tablet 1-11 [...] 667 mg 00 Medical capsule Branch traZODone 2019-0 Yes 150mg Take 150 Uni vers 150 mg 8-13 mg by ity of tablet 00:00: mouth at [place] [address] bedtime. Medical Branch traZODone 2019-0 Yes 150mg Take 150 Uni vers 150 mg 8-13 mg by ity of tablet 00:00: mouth at [place] 00 bedtime. Medical Branch erythromyci 2020- No [id number] .5[in_u Place 0.5 Univers n 5 mg/gram [...] l 59 Center hydrALAZINE 2017-0 Yes 100mg Q.29843976 Take [address] [facility] (APRESOLINE 7-20 [id number] mg by L ukes ) 100 MG 15:20: 3D mouth 3 Medica l tablet 59 (three) Center times daily. magnesium 2017-0 Yes 400mg QD Take [address] [facility] oxide 7-20 mg [facility] (MAG-OX) 15:20: mouth Medical 400 mg 59 daily. Center tablet metoclopram 2017-0 Yes 10mg Q.07407066 Take [address] [facility] gadiel HCl 7-20 [id number] by mouth 3 [facility] (REGLAN) 10 15:20: [...] l 59 Center hydrALAZINE 2017-0 Yes 100mg Q.[id number] Take [address] [facility] (APRESOLINE 7-20 [id number] mg by L es ) 100 MG 15:20: 3D mouth 3 Medica l tablet 59 (three) Center times daily. magnesium 2017-0 Yes 400mg QD Take [address] [facility] oxide 7-20 mg by [facility] (MAG-OX) 15:20: mouth Medical 400 mg 59 daily. Center tablet metoclopram 2017-0 Yes 10mg Q.17755756 Take [address] [facility] gadiel HCl 7-20 [id number] by mouth 3 [facility] (REGLAN) 10 15:20: [...] l 59 Center hydrALAZINE 2017-0 Yes 100mg Q.65550502 Take [address] [facility] [address] (APRESOLINE 7-20 [id number] mg by L ukes ) 100 MG 15:20: 3D mouth 3 Medica l tablet 59 (three) Center times daily. magnesium 2017- Yes 400mg QD Take [address] [facility] [address] oxide 7-20 mg by [facility] (MAG-OX) 15:20: mouth Medical 400 mg 59 daily. Center tablet metoclopram 2017- Yes 10mg Q.59274905 Take [address] [facility] gadiel HCl 7-20 [id number] by mouth 3 [facility] (REGLAN) 10 15:20: [...] l 59 Center hydrALAZINE 2017-0 Yes 100mg Q.75610813 Take [address] [facility] [address] (APRESOLINE 7-20 [id number] mg by L ukes ) 100 MG 15:20: 3D mouth 3 Medica l tablet 59 (three) Center times daily. magnesium 2017-0 Yes 400mg QD Take [address] [facility] [address] oxide 7-20 mg by [facility] (MAG-OX) 15:20: mouth Medical 400 mg 59 daily. Center tablet metoclopram 2017-0 Yes 10mg Q.57670555 Take [address] [facility] gadiel HCl 7-20 [id number] by mouth 3 [facility] (REGLAN) 10 15:20: [...] l 59 Center hydrALAZINE 2017-0 Yes 100mg Q.18061063 Take [address] [facility] [address] (APRESOLINE 7-20 [id number] mg by L ukes ) 100 MG 15:20: 3D mouth 3 Medica l tablet 59 (three) Center times daily. magnesium 2017-0 Yes 400mg QD Take [address] [facility] [address] oxide 7-20 mg by [facility] (MAG-OX) 15:20: mouth Medical 400 mg 59 daily. Center tablet metoclopram 2017-0 Yes 10mg Q.97666574 Take [address] [facility] gadiel HCl 7-20 [id number] by mouth 3 [facility] (REGLAN) 10 15:20: [...] l 59 Center hydrALAZINE 2017-0 Yes 100mg Q.12371204 Take [address] [facility] [address] (APRESOLINE 7-20 [id number] mg by L ukes ) 100 MG 15:20: 3D mouth 3 Medica l tablet 59 (three) Center times daily. magnesium 2017-0 Yes 400mg QD Take [address] [facility] [address] oxide 7-20 mg by [facility] (MAG-OX) 15:20: mouth Medical 400 mg 59 daily. Center tablet metoclopram 2017-0 Yes 10mg Q.12448280 Take [address] [facility] gadiel HCl 7-20 [id number] by mouth 3 [facility] (REGLAN) 10 15:20: [...] l 59 Center hydrALAZINE 2017-0 Yes 100mg Q.37682479 Take [address] [facility] [address] (APRESOLINE 7-20 [id number] mg by L ukes ) 100 MG 15:20: 3D mouth 3 Medica l tablet 59 (three) Center times daily. magnesium 2017-0 Yes 400mg QD Take [address] [facility] [address] oxide 7-20 mg by [facility] (MAG-OX) 15:20: mouth Medical 400 mg 59 daily. Center tablet metoclopram 2017-0 Yes 10mg Q.16525289 Take [address] [facility] gadiel HCl 7-20 [id number] by mouth 3 [facility] (REGLAN) 10 15:20: [...] l 59 Center hydrALAZINE 2017-0 Yes 100mg Q.67252962 Take [address] [facility] [address] (APRESOLINE 7-20 [id number] mg by L ukes ) 100 MG 15:20: 3D mouth 3 Medica l tablet 59 (three) Center times daily. magnesium 2017-0 Yes 400mg QD Take [address] [facility] [address] oxide 7-20 mg by [facility] (MAG-OX) 15:20: mouth Medical 400 mg 59 daily. Center tablet metoclopram 2017-0 Yes 10mg Q.14795243 Take [address] [facility] gadiel HCl 7-20 [id number] by mouth 3 [facility] (REGLAN) 10 15:20: [...] l 59 Center hydrALAZINE 2017-0 Yes 100mg Q.67552890 Take [address] [facility] [address] (APRESOLINE 7-20 [id number] mg by L ukes ) 100 MG 15:20: 3D mouth 3 Medica l tablet 59 (three) Center times daily. magnesium 2017-0 Yes 400mg QD Take [address] [facility] [address] oxide 7-20 mg by [facility] (MAG-OX) 15:20: mouth Medical 400 mg 59 daily. Center tablet metoclopram 2017-0 Yes 10mg Q.82617466 Take [address] [facility] gadiel HCl 7-20 [id number] by mouth 3 [facility] (REGLAN) 10 15:20: [...] l 59 Center hydrALAZINE 2017-0 Yes 100mg Q.21231745 Take [address] [facility] [address] (APRESOLINE 7-20 [id number] mg by L ukes ) 100 MG 15:20: 3D mouth 3 Medica l tablet 59 (three) Center times daily. magnesium 2017-0 Yes 400mg QD Take [address] [facility] [address] oxide 7-20 mg by [facility] (MAG-OX) 15:20: mouth Medical 400 mg 59 daily. Center tablet metoclopram 2017-0 Yes 10mg Q.40252769 Take [address] [facility] gadiel HCl 7-20 [id number] by mouth 3 [facility] (REGLAN) 10 15:20: [...] l 59 Center hydrALAZINE 2017-0 Yes 100mg Q.83092216 Take [address] [facility] [address] (APRESOLINE 7-20 [id number] mg by L ukes ) 100 MG 15:20: 3D mouth 3 Medica l tablet 59 (three) Center times daily. magnesium 2017-0 Yes 400mg QD Take [address] [facility] [address] oxide 7-20 mg by [facility] (MAG-OX) 15:20: mouth Medical 400 mg 59 daily. Center tablet metoclopram 2017-0 Yes 10mg Q.67337055 Take [address] [facility] gadiel HCl 7-20 [id number] by mouth 3 [facility] (REGLAN) 10 15:20: [...] l 59 Center hydrALAZINE 2017-0 Yes 100mg Q.32620835 Take [address] [facility] [address] (APRESOLINE 7-20 [id number] mg by L ukes ) 100 MG 15:20: 3D mouth 3 Medica l tablet 59 (three) Center times daily. magnesium 2017-0 Yes 400mg QD Take [address] oxide 7-20 mg by [facility] (MAG-OX) 15:20: mouth Medical 400 mg 59 daily. Center tablet metoclopram 2017-0 Yes 10mg Q.85327579 Take [address] [facility] gadiel HCl 7-20 [id number] by mouth 3 [facility] (REGLAN) 10 15:20: [...] tab, PO, l Tablet 15:07: Daily, # [place] 00 30 tab, 0 Refill(s), Pharmacy: [facility] 808 Bumex No 0.5 mg, Memoria 2 Route: PO, l 15:00: Drug form: Vin 00 TAB, Daily, Dosing Weight 92.273, kg, Start date: 07/30/16 9:00:00 [employer]Y MEMBER, Duration: 30 day, Stop date: 08/28/16 9:00:00 [employer]IA [employer]AC[employer]Y MEMBER Lasix No Notes: Memoria 2-08 (Same as: l 20:05: Lasix) May [place] 00 cause GI upset. Give with food [...] Total Volume: 1,000, Start date: 07/26/16 12:26:00 [employer]IA LAW FACULTY MEMBER, Duration: 30 day, Stop date: 08/25/16 12:25:00 MEDIA LAW FACULTY MEMBER Sodium 2016- No 500 mL, Memoria Chloride 2-05 500 ml/hr, l 0.154 13:30: Infuse [place] MEQ/ML 00 Over: 1 Injectable hr, Route: Solution IV, 500, Drug form: INJ, ONCE, Priority: STAT, Dosing Weight 92.273 kg, Start date: 07/26/16 7:30:00 MEDIA LAW FACULTY MEMBER, Duration: 1 doses or times, Stop date: 07/26/16 7:30:00 MEDIA LAW FACULTY MEMBER Insulin No 60 units) Mendoza janice regular 2-04 WASTE: F/P l 08:39: - Black; E Vin 00 - Municipal Trash Bin Stable for 28 days at room temperatur e Expires in days from ____Date Insulin, No Notes: Memoria Aspart, 2-04 Roll in l Human 07:31: palms of [place] 00 hands gently; Do not shake vigorously [...] sodium 2-04 (Same as: l 03:00: Depakote [place] 00 ER) Once daily dosing; indicated for [...] Weight 92.273, kg, Start date: 07/24/16 9:00:00 [employer]Y MEMBER, Duration: 30 day, Stop date: 08/22/16 9:00:00 [employer]IA [employer]Y MEMBER 24 HR No Notes: Memoria Divalproex 2-03 (Same as: l Sodium 500 15:00: Depakote Her braden MG Extended 00 ER) Release Tablet [Depakote] gabapentin No Notes: Memor ia 300 MG Oral 2-03 (Same as: l Capsule 15:00: Neurontin) Herm Aspirin 81 No Notes: Memor ia MG Chewable 2-03 Take with l Tablet 15:00: food. [place] Lasix No Notes: Memoria 2-03 (Same as: l 15:00: Lasix) Vin 00 MEDICATION WASTE Product Size: 40 mg Product Wasted: ___ mg Zoloft No Notes: Memoria 2-03 (Same as: l 15:00: Zoloft) [place] Protonix No Notes: Memoria 2-03 Tablet l 15:00: should not [place] 00 be chewed or crushed. (Same as: Protonix) metoprolol No 100 mg, 2 Me moria extended 2-03 tab, l release 15:00: Route: PO, Herm naeem Drug form: ERTAB, Daily, Start date: 07/24/16 9:00:00 [employer] MEMBER, Duration: 30 day, Stop date: 08/22/16 9:00:00 [employer] MEMBER Insulin No Notes: Memoria Glargine 2- Same [...] Notes: Memoria 2-03 (Same l 14:50: as:MORPhin [place] 00 e Sulfate) Insulin, No Notes: Memoria [...] Blood Glucose Results, Start date: 07/24/16 2:40:00 [employer] MEMBER, Duration: 30 day, Stop date: 08/23/16 2:39:00 [employer] MEMBER Dextrose No 25 gm, 50 Mendoza janice 50% Syringe 2-03 mL, Route: l 08:40: IVP, Drug Form: INJ, Dosing Weight 92.273, kg, PRN, PRN Blood Glucose Results, Start date: 07/24/16 2:40:00 [employer]Y MEMBER, Duration: 30 day, Stop date: 08/23/16 2:39:00 [employer] MEMBER Docusate No Notes: Memoria 2- (Same as: [...] l / 04:09: Duoneb) Vin Ipratropium 00 [place] 0.167 MG/ML Inhalant Solution [DuoNeb] Furosemide 2015-06 [...] Oxide 2-24 (Same as: l 13:36: Mag-Ox [place] 00 400) Magnesium oxide 151yv=033m g elemental magnesium Dose=____m g magnesium oxide (___mg elemental magnesium) Magnesium 2015-06 No Notes: Memori a Oxide 2-24 (Same as: l 09:47: Mag-Ox Vin 00 400) Magnesium oxide 429ba=523t g elemental magnesium Dose=____m g magnesium oxide [...] XL 2-24 (Same as: l 00:00: Wellbutrin [place] 00 XL) "Do Not Crush" Norvasc 2015-06 [...] tab, PO, l Tablet 15:27: Daily, 0 [place] [Zoloft] 00 Refill(s) pantoprazol 2015-06 Yes 40 mg = 1 M emoria e 40 MG 2-23 tab, PO, l Enteric 15:27: Daily, 0 Jake n Coated 00 Refill(s) Tablet [Protonix] gabapentin 2015-06 Yes 1 CAP PO Mem oria 300 MG Oral 2-23 BID AND 1 l Capsule 15:27: CAP AT [place] 00 BEDTIME, 0 Refill(s) Insulin, 2015-06 No [...] Weight 86.364, kg, Start date: 06/11/16 9:00:00 [employer]Y MEMBER, Duration: 30 day, Stop date: 07/10/16 9:00:00 [employer]IA [employer]AC[employer]Y MEMBER Insulin 2015-06 No Notes: Memoria Glargine 2-22 [...] - (Same as: l / 03:00: Duoneb) [place] Ipratropium 00 [place] 0.167 MG/ML Inhalant Solution [DuoNeb] gabapentin 2015-06 No 300 mg, Mendoza janice 300 MG Oral 2-22 Route: PO, l Capsule 03:00: Drug form: Herm naeem 00 CAP, Q12H, Dosing Weight 86.364, kg, (CrCl 30 - 59 ml/min), Start date: 06/10/16 21:00:00 [employer] MEMBER, Duration: 30 day, Stop date: 07/10/16 9:00:00 [employer] MEMBER divalproex 2015-06 No Notes: Memor ia sodium 2-22 (Same as: l 03:00: Depakote Vin 00 ER) Once daily dosing; indicated for migraines. Divalproex sodium extended-r elease tab. Do not chew or crush. "Do Not Crush" Losartan 2015-06 No Notes: Memoria 2-22 (Same as: l 03:00: Cozaar) [place] 00 Insulin, 2015-06 No Notes: Memoria Aspart, [...] Blood Glucose Results, Start date: 06/10/16 18:50:00 [employer]Y MEMBER, Duration: 30 day, Stop date: 07/10/16 18:49:00 [employer] MEMBER Glucagon 2015-06 No 1 mg, Memoria 2-22 Route: IM, l 00:50: Drug form: [place] PDR/INJ, PRN, Dosing Weight 86.364, kg, PRN Blood Glucose Results, Start date: 06/10/16 18:50:00 [employer]AC[employer]Y MEMBER, Duration: 30 day, Stop date: 07/10/16 18:49:00 [employer]IA [employer]AC[employer]Y MEMBER Hydralazine 2015-06 No Notes: Mendoza janice 2-22 [...] Weight 86.364, kg, Start date: 06/10/16 18:06:00 [employer]IA [employer]AC[employer]Y MEMBER, Stop date: 06/10/16 18:06:00 [employer]IA [employer]AC[employer]Y MEMBER hydrOXYzine 2015-06 No Notes: Mendoza janice pamoate -21 (Same as: l 23:00: Vistaril) [place] 00 Furosemide 2015-06 No 60 mg, Memor ia 2-21 Route: l 22:32: IVP, Drug form: INJ, ONCE, Dosing Weight 86.364, kg, Start date: 06/10/16 16:32:00 [employer]Y MEMBER, Stop date: 06/10/16 16:32:00 [employer]IA [employer]AC[employer]Y MEMBER Lasix 2015-06 No Notes: Memoria 2-21 (Same as: l 17:22: Lasix) MEDICATION WASTE Product Size: 40 mg Product Wasted: _0__ mg Albuterol 2015-06 No Notes: Memori a 0.833 MG/ML -21 (Same as: l 17:22: Duoneb) Ipratropium 00 [place] 0.167 MG/ML Inhalant Solution [DuoNeb] Promethazin Yes 25 mg = 1 M emoria e 1-06 supp, [place], l Hydrochlori 14:45: Q6H, Jake gonzalez de [...] 2012- No Matthew Gary 4 mg, Memoria 0- Marry Route: l 04:10: IVP, ONCE, Dosing Weight 63.636, kg, Priority: STAT, Start date: 04/14/13 23:10:00, Stop date: 04/14/13 23:10:00 Sodium 2012- No Matthew Gary 1,000 mL, M emoria Chloride 0- Marry Rate: 125 l 0.9% IV 04:10: ml/hr, [place] 1,000 mL 00 Infuse over: 8 hr, [...] Marx Rate: 500 l 0.9% 23:45: ml/hr, [place] (Bolus) IV 00 Infuse 500 mL over: [...] insulin No Blake 10 unit, Mem oria 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 6-11 Deangelo 0.1 mL, l H 02:00: [...] 2011-0 No Blake 14 unit, Mem oria 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 6-10 Deangelo 0.14 mL, l H 14:00: Route: [place] 00 SUB-Q, Drug form: INJ, Daily, Start date: 11/29/11 9:00:00, Duration: 30 day, Stop date: 12/28/11 9:00:00 Insulin 2011-0 No Blake 10 unit, Mem oria regular 6-10 Deangelo 0.1 mL, l 14:00: Brisa Route: [place] 00 SUB-Q, Drug form: SOLN, Daily, Start [...] Deangelo 0.1 mL, l 06:30: Brisa Route: [place] 00 SUB-Q, Drug form: SOLN, TID-Before Meals, [...] 2011-0 No Nikki 10 mg, 2 Memoria gadeil 6-10 Sarah mL, Route: l 04:01: Brown IVP, Drug [place] form: INJ, ONCE, Priority: STAT, Start date: 11/28/11 23:01:00, Stop date: 11/28/11 23:01:00 Zofran 2011-0 No Nikki 4 mg, 2 Mendoza janice 6-10 Sarah mL, Route: l 02:31: Brown IVP, Drug Vin form: INJ, ONCE, Priority: STAT, Start date: [...] Hughes-Jason 8 unit, M emoria 100 3-30 [place] SUB-Q, l units/mL 17:47: Eunice Q12H, 2 He rmann injectable 42 Pu vial, solution Substituti on Allowed, SOLN Novolin N Yes Hughes-Jason 10 unit, Memoria 100 3-30 [place] SUB-Q, l units/mL 17:46: Eunice Bedtime, H ermann subcutaneou 27 Pu 10 ml, s injection Substituti on Allowed, SUSP Novolin N Yes Hughes-Jason 14 unit, Memoria 100 3-30 [place] SUB-Q, l units/mL 17:44: Eunice QAM, 1 Her braden subcutaneou 37 Pu vial, s injection Substituti on Allowed, SUSP magnesium No Hughes-Jason 400 mg, 1 Memoria oxide 3-30 [place] tab, l 14:55: Dawson Route: PO, Her braden 00 Pu Drug form: TAB, ONCE, Priority: STAT, Start date: 09/18/11 9:55:00, Stop date: 09/18/11 9:55:00 Insulin 2011-0 No Hughes-Jason 8 unit, Mem oria regular 3-30 [place] 0.08 mL, l 14:22: [place] Route: Vin 00 Pu SUB-Q, Drug form: SOLN, ONCE, Priority: STAT, Start date: 09/18/11 9:22:00, Stop date: 09/18/11 9:22:00 Lactated 2011- No Hughes-Jason 1,000 mL, Memoria Ringers 3-30 [place] Rate: l (Bolus) IV 14:16: [place] 1,000 He rmann 1,000 mL 00 Pu ml/hr, Infuse over: 1 hr, Route: IV, Total Volume: 1,000, [place] Dose, Priority: STAT, Start date: 09/18/11 9:16:00, Duration: 1 doses or times, Stop date: 09/18/11 10:15:00 Sodium No Hughes-Jason 1,000 mL, Me moria Chloride 3-30 [place] Rate: l 0.9% 14:06: [place] 1,000 Vin (Bolus) IV 00 Pu ml/hr, 1000 mL Infuse over: 1 hr, Route: IV, kg, Total Volume: 1,000, [place] Dose, Priority: STAT, Start date: 09/18/11 9:06:00, Duration: 1 doses or times, Stop date: 09/18/11 10:05:00 sulfamethox Yes Substituti Memoria azole 3-30 on Allowed l 14:04: [place] 58 Sodium No Hughes-Jason 1,000 mL, Me moria Chloride 3-30 [place] Rate: l 0.9% 13:56: [place] 1,000 [place] (Bolus) IV 00 Pu ml/hr, 1000 mL Infuse over: 1 hr, Route: IV, kg, Total Volume: 1,000, [place] Dose, Priority: STAT, Start date: 09/18/11 8:56:00, Duration: 1 doses or times, Stop date: 09/18/11 9:55:00 clindamycin No Eber L 300 mg, 2 Memoria 3-21 Anabelle cap, l 21:00: Route: PO, [place] 00 Drug form: CAP, Q8H, Start date: 09/09/11 16:00:00, Duration: 30 day, Stop date: 10/09/11 8:00:00 Colace 100 Yes Luna 100 mg, 1 Memoria mg oral 3-21 Amelia cap, PO, l capsule 18:47: [place] BID, 60 Her braden 19 cap, Substituti on Allowed, CAP clindamycin Yes Luna 300 mg, 2 Memoria 150 mg oral 3-21 Maelia cap, PO, l capsule 18:46: Zeeshan Q8H, 30 Her braden 55 cap, Substituti on Allowed, CAP [place] Yes Luna 1 tab, PO, Memoria 10/325 oral 3-21 Amelia Q4H, PRN, l tablet 18:46: Zeeshan 30 tab, Herm naeem 36 Pain, Substituti on Allowed, Maintenanc e, TAB [place] No Hollie Donavan 1 tab, Mendoza janice [...] Memoria 3-19 Josefina mL, Route: l 14:19: Malone IVP, Drug Jake n 00 form: INJ, PRN, PRN Benzodiaze pine Reversal, Initial dose, Start date: 09/07/11 9:19:00, Duration: 1 day, Stop date: 09/08/11 9:18:00 naloxone 2011- No Gayle 0.04 mg, Me moria 3-19 Josefina 0.1 mL, l 14:19: Malone Route: [place] IVP, Drug form: INJ, Q2MIN, PRN Narcotic Reversal, Start date: 09/07/11 9:19:00, Duration: 8 doses or times, Stop date: Limited # of times ondansetron 0 No Gayle 4 mg, 2 Memoria 3-19 Josefina mL, Route: l 14:19: [place] IVP, Drug Jake n 00 form: INJ, [...] 125 l 1,000 mL 14:06: ml/hr, Vin Infuse over: 8 hr, Route: IV, Dosing Weight 68.182 kg, Total Volume: 1,000, Start date: 09/07/11 9:06:00, Duration: 30 day, Stop date: 10/07/11 9:05:00 clindamycin No Maximo R 600 mg, Memoria 09-06 Arias Route: l 13:31: IVPB, [place] 00 ONCE, Start date: 09/07/11 8:31:00, Stop [...] 3-17 Omidvar tab, l 14:11: Route: PO, [place] 00 Drug form: ERTAB, ONCE, Start date: 09/05/11 9:11:00, Stop date: 09/05/11 9:11:00 Dulcolax 2011-0 No Charbel A 10 mg, 2 M emoria Laxative 3-17 Wong tab, l 04:00: Route: PO, [place] 00 Drug form: ECTAB, Daily, PRN Constipati [...] Duration: 30 day, Stop date: 10/04/11 18:10:00 [place] 2011-0 No Mahammad 1 tab, Memori a [...] 10cc/hr, l - site 1 14:50: Route: [place] 400 mL 00 NERVE BLOCK, Start date: 09/04/11 9:50:00 400 mL, Duration: 30 day, Stop date: 10/04/11 9:49:00 naloxone 2011- No Rosalino 0.04 mg, Me moria 3-16 Kavon 0.1 mL, l 14:50: Route: [place] 00 IVP, Drug form: INJ, Q2MIN, PRN Narcotic Reversal, Start date: 09/04/11 9:50:00, Duration: 30 day, Stop date: 10/04/11 9:49:00 [place] 2011-0 No [place] 1 tab, Memoria 10/325 oral 3-16 Omidvar Route: PO, l tablet 14:49: Drug Form: Nidia nn 00 TAB, Q4H, PRN Pain, Start date: 09/04/11 9:49:00, Stop date: 10/04/11 9:48:00 labetalol 2011-0 No Gregory F 5 mg, Mendoza janice 3-16 [place] Route: IV, l 14:40: ONCE, [place] Start date: 09/04/11 9:40:00, Stop date: 09/04/11 9:40:00 ondansetron 2011-0 No Hollie 4 mg, 2 Me moria 3-16 Beck mL, Route: l 13:37: [place] IVP, Drug Nidia nn 00 form: INJ, ONCE, PRN Nausea & Vomiting, Start date: 09/04/11 8:37:00 naloxone No Hollie 0.04 mg, Mendoza janice 3-16 Beck 0.1 mL, l 13:37: [place] Route: [place] IVP, Drug form: INJ, Q2MIN, PRN Narcotic Reversal, Start date: 09/04/11 8:37:00, Duration: 8 doses or times, Stop date: Limited # of times meperidine No Hollie 12.5 mg, Me moria 3-16 Beck 0.5 mL, l 13:37: [place] Route: [place] IVP, Drug form: INJ, Q30Min, PRN Other [...] 3-16 Kavon 0.25 mL, l 13:37: Route: [place] IVP, Drug form: INJ, Q5Min, PRN Pain Score 4-6, Start date: 09/04/11 8:37:00, Duration: 5 doses or times, Stop date: Limited # of times clindamycin 0 No Eber L 600 mg, 4 Memoria 3-15 Anabelle mL, Route: l 16:00: IVPB, Vin 00 [id number], Start date: 09/03/11 11:00:00, Duration: 30 day, Stop date: 10/03/11 8:00:00 potassium 2011-0 No [place] 40 mEq, 2 M emoria chloride 3-15 Omidvar tab, l 13:39: Route: PO, [place] Drug form: ERTAB, ONCE, Start date: 09/03/11 8:39:00, Stop date: 09/03/11 8:39:00 [place] 5/325 2011-0 No Rosalino 1 tab, M emoria oral tablet 3-15 Kavon Route: PO, l 05:00: Drug Form: Vin 00 TAB, Q4H, Start date: 09/03/11 0:00:00, Duration: 30 day, Stop date: 10/02/11 20:00:00 Geodon 2011-0 No Eber L 120 mg, 3 Memoria 3-15 Anabelle cap, l 02:00: Route: PO, [place] Drug form: CAP, Bedtime, Start date: 09/02/11 [...] Duration: 30 day, Stop date: 10/02/11 9:00:00 [place] 5/325 2011-0 No Rosalino 1 tab, M emoria oral tablet 3-14 Kavon Route: PO, l 16:25: Drug Form: [place] 00 TAB, Q4H, PRN Pain, Start date: 09/02/11 11:25:00, Duration: 30 day, Stop date: 10/02/11 11:24:00 magnesium 2011-0 No Bism[place] 4 gm, 50 Me moria sulfate 3-14 Omidvar mL, Route: l 16:15: IVPB, Drug form: INJ, ONCE, Start date: 09/02/11 11:15:00, Stop date: 09/02/11 11:15:00 Lovenox 2011-0 No Missael 40 mg, 0.4 Mem oria 3-14 Movva mL, Route: l 14:00: SUB-Q, [place] 00 Drug form: INJ, Daily, Start date: 09/02/11 9:00:00, Duration: 30 day, Stop date: 10/01/11 9:00:00 vancomycin 2011-0 No Eber L 1 gm, Memoria 3-14 Anabelle Route: l 14:00: IVPB, Drug form: INJ, [id number], Start date: 09/02/11 9:00:00, Duration: 30 day, [...] 2011-0 No [place] 15 unit, Mendoza janice 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 3-14 Omidvar 0.15 mL, l H 02:00: Route: [place] 00 SUB-Q, Drug form: INJ, Q12H, Start date: 09/01/11 21:00:00, Stop date: 10/01/11 9:00:00 labetalol 2011-0 No Mariaelena-Corea 5 mg, Me moria 3-14 Barbra Route: l 01:07: Feliciano IVP, Vin 00 Q5Min, PRN Elevated BP, Start date: 09/01/11 20:07:00, Duration: 5 doses or times, Stop date: Limited # of times hydrALAZINE No Mariaelena-Corea 5 mg, Memoria 3-14 Barbra Route: l 01:07: Feliciano IVP, [place] 00 Q5Min, PRN Elevated BP, Start date: 09/01/11 20:07:00, Duration: 4 doses or times, Stop date: Limited # of times hydromorpho No Mariaelena-Corea 0.5 mg, Memoria ne 3-14 Barbra Route: l 01:07: Feliciano IVP, [place] 00 Q5Min, PRN Pain Score 4-6, Start date: 09/01/11 20:07:00, Duration: 5 doses or times, Stop date: Limited # of times naloxone No Mariaelena-Corea 0.04 mg, Memoria 3-14 Barbra Route: l 01:07: Feliciano IVP, [place] 00 Q2MIN, PRN Narcotic Reversal, Start date: 09/01/11 20:07:00, Duration: 8 doses or times, Stop date: Limited # of times flumazenil No Mariaelena-Corea 0.2 mg, Memoria 3-14 Barbra Route: l 01:07: Feliciano IVP, PRN, [place] 00 PRN Benzodiaze pine Reversal, Initial dose, Start date: 09/01/11 20:07:00, Duration: 30 day, Stop date: 10/01/11 20:06:00 ondansetron No Mariaelena-Corea 4 mg, Memoria 3-14 Barbra Route: l 01:07: Feliciano IVP, ONCE, Vin 00 PRN Nausea & Vomiting, Start date: 09/01/11 20:07:00 vancomycin No Mele 1 gm, Mem oria 3-14 Gauvain Route: l 01:00: IVPB, Drug [place] 00 form: INJ, [id number], Start date: 09/01/11 20:00:00, Duration: 30 day, [...] Route: l 00:00: IVPB, Drug form: INJ, [id number], Start date: 09/01/11 19:00:00, Duration: 30 day, [...] mL, Me moria Ringers IV 3-13 Manuel Kerkhoven Rate: 100 l 1,000 mL 19:03: ml/hr, [place] 00 Infuse over: 10 hr, Route: IV, [...] Madden 0.08 mL, l 15:28: Gurinder Route: [place] 00 SUB-Q, Drug form: SOLN, ONCE, Priority: [...] Sulfate 3-13 Nikki mL, Route: l 13:28: Sadneep IVP, Drug Nidia nn 00 form: INJ, ONCE, Start date: 09/01/11 8:28:00, Stop date: 09/01/11 8:28:00 clindamycin 2012-0 No Ju 600 mg, 4 Memoria 3-13 Nikki mL, Route: l 13:20: Sandeep IVPB, Drug Herm naeem 00 form: INJ, ONCE, Priority: STAT, Start date: 09/01/11 8:20:00, Stop date: 09/01/11 8:20:00 Sodium 2011-0 No Bee L 1,000 mL, M emoria Chloride 3- [place] Rate: l 0.9% 10:41: 1,000 [place] (Bolus) IV 00 ml/hr, 1000 mL Infuse [...] L 4 mg, Mem oria Sulfate 3- [place] Route: l 09:06: IVP, ONCE, Vin 00 Priority: STAT, Start date: 09/01/11 4:06:00, Stop date: 09/01/11 4:06:00 Sodium 2011-0 No Bee L 1,000 mL, M emoria Chloride 3-13 [place] Rate: l 0.9% 08:42: 1,000 [place] (Bolus) IV 00 ml/hr, 1000 mL Infuse [...] 2011-0 No Bee L 1,000 mL, M lynria Chloride 08-31 [place] Rate: l 0.9% 07:29: 1,000 Vin (Bolus) IV 00 ml/hr, 1,000 mL Infuse over: 1 hr, Route: IV, Dosing Weight 68.182 kg, Total Volume: 1,000, Bolus Dose, Priority: STAT, Start date: 09/01/11 2:29:00, Duration: 1 doses or times, Stop date: 09/01/11 3:28:00 potassium 2011- No Brooks Noam 40 mEq, 2 Memoria chloride 3-04 Akmal tab, l 15:00: Route: PO, [place] 00 Drug form: ERTAB, BID, Start date: [...] 3-04 Akmal 100 mL, l 14:00: Route: [place] 00 IVPB, Drug form: INJ, Q2H, Start date: 08/23/11 8:00:00, Duration: 2 doses or times, Stop date: 08/23/11 10:00:00 calcium 2011-0 No Brooks Noam 1 gm, Mem oria chloride 3-04 Akmal Route: l 13:28: IVPB, [place] 00 ONCE, Priority: STAT, Start date: 08/23/11 7:28:00, Stop date: 08/23/11 7:28:00 potassium 2011-0 No Brooks Noam 40 mEq, Memoria chloride 3-04 Akmal Route: IV, l 12:29: ONCE, [place] 00 Start date: 08/23/11 6:29:00, Stop date: [...] 3-02 Akmal tab, l 15:00: Route: PO, [place] Drug form: TAB, Daily, Start date: 08/21/11 [...] 2011-0 No Yury 10 unit, Mem oria 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 3- [place] Route: l H 16:00: Rivero [...] tab, PO, l tablet 15:35: BID, 60 [place] 25 tab, Substituti on Allowed, TAB Geodon 60 Yes 120 mg, 2 Mem oria mg oral 3-01 cap, PO, l capsule 15:35: Bedtime, Jake n 12 60 cap, Substituti on Allowed, CAP insulin No Yury 10 unit, Mem oria 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 - [place] Route: l H 15:00: Rivero [...] insulin 2011- No 10 unit, Memori a 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 08-19 SUB-Q, l H 09:26: BID, Vin [...] 2011- No Yury 18 unit, Mem oria 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 - [place] 0.18 mL, l H 08:58: Rivero Route: Nidia nn 00 SUB-Q, Drug form: INJ, Q12H, Start date: 08/20/11 2:58:00, Stop date: 09/18/11 21:00:00 insulin 2011- No Yuyr 2 unit, Mendoza janice aspart 3- [place] [...] Dextrose No [facility] 25 [facility], [facility] Sy[facility] 08-19 [place] ml, Route: l 08:46: Rivero IVP, Drug He rmann 00 Form: INJ, PRN, PRN Blood Glucose Results, Start date: 08/20/11 2:46:00, Duration: 30 day, Stop date: 09/19/11 3:45:00 ondansetron No [facility] [place] Route: l 07:42: Eunice IVP, Drug Herm naeem 00 Pu form: INJ, ONCE, Priority: STAT, Start date: 08/20/11 1:42:00, Stop date: 08/20/11 1:42:00 GI cocktail No Hughes-Jason 30 ml, Memoria 08-19 [place] Route: PO, l 05:12: [place] Drug Form: Her braden 00 Pu SUSP, ONCE, STAT, Start date: 08/19/11 23:12:00, Stop date: 08/19/11 23:12:00 ondansetron No Hughes-Jason 4 mg, [facility] 08-19 [place] Route: PO, l 05:10: [place] Drug form: Her braden 00 Pu TABDIS, ONCE, Priority: STAT, Start date: 08/19/11 23:10:00, Stop date: 08/19/11 23:10:00 Lactated 2011- No Hughes-Jason 1,000 mL, Memoria Ringers 08-19 [place] Rate: l (Bolus) IV 05:10: Eunice 1,000 He rmann 1000 mL 00 Pu ml/hr, Infuse over: 1 hr, Route: IV, Total Volume: 1,000, [place] Dose, Priority: STAT, Start date: 08/19/11 23:10:00, Duration: 1 doses or times, Stop date: 08/20/11 0:09:00 Insulin 2011- No Hughes-Jason 7 unit, Mem oria regular 08-19 [place] 0.07 mL, l 04:15: Eunice Route: [place] 00 Pu SUB-Q, Drug form: SOLN, ONCE, Priority: STAT, Start date: 08/19/11 22:15:00, Stop date: 08/19/11 22:15:00 Geodon 60 2011- No Yury 60 mg, 1 M emoria mg oral 2-29 [place] cap, PO, l capsule 23:24: Rivero BID, 180 [place] 43 cap, Substituti on Allowed, CAP trazodone [...] 2020-02-20 Completed [facility] Vaccine 00:00:00 [facility] Influenza Virus 2020-02-20 Completed Universit [facility] of Vaccine 00:00:00 [facility] TDAP (ADACEL) VACCINE 2019-07-25 Completed Uni versity of 00:00:00 [facility] Meningococcal B, OMV 2019-07-25 Completed Univ ersity of 00:00:00 [facility] Meningococcal 2019-07-25 Completed University of Polysaccharide 00:00:00 [facility] tawnya (groups A, C, Y and Branc h W-135) conjugate vaccine (MCV4P) TDAP (ADACEL) VACCINE 2019-07-25 Completed Uni versity of 00:00:00 [facility] Meningococcal B, OMV 2019-07-25 Completed Univ ersity of 00:00:00 [facility] Meningococcal 2019-07-25 Completed University of Polysaccharide 00:00:00 [facility] tawnya (groups A, C, Y and Branc h W-135) conjugate vaccine (MCV4P) Influenza Virus 2019-02-27 Completed Universit y of Vaccine Quad .5 mL IM 00:00:00 [facility] 6+ MO Branch Influenza Virus 2019-02-27 Completed Universit y of Vaccine Quad .5 mL IM 00:00:00 [facility] 6+ MO Branch hepatitis B vaccine 2018-04-07 Completed Memor ial Vin 00:00:00 influenza virus 2018-03-29 Completed [facility] [place] vaccine, inactivated 00:00:00 hepatitis B vaccine 2017-11-26 Completed Memor ial Vin 00:00:00 influenza virus 2017-10-25 [facility]:00 pneumococcal 2017-10-25 Completed [facility] 23-valent vaccine 00:00:00 Influenza Virus 2017-06-22 Completed Universit y of Vaccine Quad IM 3+ 00:00:00 [facility] Influenza Virus 2017-06-22 Completed Universit y of Vaccine Quad IM 3+ 00:00:00 [facility] Influenza Virus 2016-04-02 Completed Universit y of Vaccine Quad IM 3+ 00:00:00 [facility] Influenza Virus 2016-04-02 Completed Universit y of Vaccine Quad IM 3+ 00:00:00 [facility] Influenza Virus 2015-10-28 Completed Universit y of Vaccine Quad IM 3+ 00:00:00 [facility] Influenza Virus 2015-10-28 Completed Universit y of Vaccine Quad IM 3+ 00:00:00 [facility] Vital Signs Vital Name Observation Time [...] 16:33:00 171 mm[Hg] Univer sity of pressure [facility] Diastolic blood 2020-06-27 16:33:00 98 mm[Hg] Unive rsity of [facility] Heart rate 2020-06-27 16:33:00 71 /min [facility] ty of [facility] Respiratory rate 2020-06-27 16:29:00 19 /min [facility] Body height 2020-06-27 16:29:00 154.9 cm Universi [facility] Body weight 2020-06-27 16:29:00 77.293 kg Universi ty of [facility] BMI 2020-06-27 16:29:00 32.20 kg/m2 [facility] Oxygen saturation in 2020-06-27 16:29:00 99 /min [facility] Arterial blood by [facility] Pulse oximetry Branch Systolic blood 2020-06-27 16:33:00 171 mm[Hg] Univer sity of [facility] Diastolic blood 2020-06-27 16:33:00 98 mm[Hg] Unive rsity of [facility] Heart rate 2020-06-27 16:33:00 71 /min Universi of [facility] Respiratory rate 2020-06-27 16:29:00 19 /[facility] 2020-06-27 16:29:00 154.9 cm [facility] Body weight 2020-06-27 16:29:00 77.293 kg [facility] BMI 2020-06-27 16:29:00 32.20 kg/m2 [facility] Oxygen saturation in 2020-06-27 16:29:00 99 /min University of Arterial blood by [facility] Pulse oximetry Branch Height/Length 2021-07-08 11:50:13 154.9 cm Measured Weight Dosing 2021-07-08 11:50:13 85.00 kg Height/Length 2021-07-08 11:47:31 154.9 cm Measured Weight Dosing 2021-07-08 11:47:31 85.00 kg Height/Length 2021-07-08 11:47:20 154.9 cm Measured Weight Dosing 2021-07-08 11:47:20 85.00 kg Systolic blood 2021-07-08 19:43:00 189 mm[Hg] [facility] pressure Diastolic blood 2021-07-08 19:43:00 104 mm[Hg] [facility] pressure Heart rate 2021-07-08 18:56:00 74 /min [facility] Body temperature 2021-07-08 18:56:00 36.39 [facility] Body height 2021-07-08 18:56:00 157.5 cm [facility] Body weight 2021-07-08 18:56:00 72.938 kg [facility] BMI 2021-07-08 18:56:00 29.41 kg/m2 [facility] Oxygen saturation in 2021-07-08 18:56:00 100 /min [facility] Arterial blood by Pulse oximetry Respiratory rate 2021-06-18 16:36:00 11 /min [facility] Systolic (mm Hg) 2021-01-29 20:03:00 Mendoza rial [place] Diastolic (mm Hg) 2021-01-29 20:03:00 Mem orial Vin Systolic (mm Hg) 2021-01-29 19:40:00 Mendoza rial [place] Diastolic (mm Hg) 2021-01-29 19:40:00 Mem orial [place] Systolic (mm Hg) 2021-01-29 18:05:00 Mendoza rial [place] Diastolic (mm Hg) 2021-01-29 18:05:00 Mem orial Vin Respitory Rate 2021-01-29 16:55:00 Memori al [place] Temperature Oral (F) 2021-01-29 16:45:00 97.3 F [facility] [place] Respitory Rate 2021-01-29 16:45:00 Memori al Vin Respitory Rate 2021-01-29 16:30:00 Memori al Vin Temperature Oral (F) 2021-01-29 13:10:00 97.6 F [facility] [place] Systolic (mm Hg) 2021-01-27 05:00:00 Mendoza rial Vin Diastolic (mm Hg) 2021-01-27 05:00:00 Mem orial [place] Systolic (mm Hg) 2021-01-27 04:00:00 Mendoza rial Vin Diastolic (mm Hg) 2021-01-27 04:00:00 Mem orial Vin Systolic (mm Hg) 2021-01-27 03:00:00 Mendoza rial Vin Diastolic (mm Hg) 2021-01-27 03:00:00 Mem orial Vin Respitory Rate 2021-01-26 19:00:00 Memori al [place] Respitory Rate 2021-01-26 18:00:00 Memori al Vin Respitory Rate 2021-01-26 17:00:00 Memori al [place] Temperature Oral (F) 2021-01-22 13:00:00 97.6 F [facility] [place] Height 2021-01-21 18:25:00 149.86 cm Memorial Vin Weight 2021-01-21 18:25:00 Memorial Vin BMI Calculated 2021-01-21 18:25:00 Memori al [place] Height 2021-01-21 17:09:00 157.48 cm Memorial Vin Height 2021-01-21 13:09:00 157.48 cm Memorial Vin Weight 2021-01-21 13:09:00 [facility] [place] BMI Calculated 2021-01-21 13:09:00 Memori al Vin Heart Rate 2021-01-21 12:50:00 [facility] [place] Systolic (mm Hg) 2020-12-24 15:43:00 Mendoza rial [place] Diastolic (mm Hg) 2020-12-24 15:43:00 Mem orial [place] Heart Rate 2020-12-24 15:43:00 [facility] [place] Height 2020-12-24 15:43:00 154.94 cm Memorial Vin Weight 2020-12-24 15:43:00 Memorial Vin BMI Calculated 2020-12-24 15:43:00 Memori al [place] Systolic (mm Hg) 2016-07-30 14:00:00 Mendoza rial Vin Diastolic (mm Hg) 2016-07-30 14:00:00 Mem orial [place] Respitory Rate 2016-07-30 14:00:00 Memori al [place] Heart Rate 2016-07-30 14:00:00 [facility] [place] Temperature Oral (F) 2016-07-30 14:00:00 97.4 F [facility] [place] Systolic (mm Hg) 2016-07-30 10:45:00 Mendoza rial Vin Diastolic (mm Hg) 2016-07-30 10:45:00 Mem orial Vin Heart Rate 2016-07-30 10:45:00 [facility] [place] Temperature Oral (F) 2016-07-30 10:45:00 97.2 F Memorial Vin Respitory Rate 2016-07-30 10:45:00 Memori al Vin Heart Rate 2016-07-30 06:35:00 Memorial Vin Temperature Oral (F) 2016-07-30 06:35:00 97.0 F [facility] [place] Respitory Rate 2016-07-30 06:35:00 Memori al [place] Systolic (mm Hg) 2016-07-30 06:35:00 Mendoza rial [place] Diastolic (mm Hg) 2016-07-30 06:35:00 Mem orial [place] Weight 2016-07-24 02:13:00 [facility] [place] BMI Calculated 2016-07-24 02:13:00 Memori al [place] Height 2016-07-24 02:13:00 160.02 cm [facility] [place] Respitory Rate 2016-06-15 15:00:00 Memori al Vin Systolic (mm Hg) 2016-06-15 15:00:00 Mendoza rial Vin Diastolic (mm Hg) 2016-06-15 15:00:00 Mem orial [place] Respitory Rate 2016-06-15 14:00:00 Memori al Vin Systolic (mm Hg) 2016-06-15 14:00:00 Mendoza rial Vin Diastolic (mm Hg) 2016-06-15 14:00:00 Mem orial Vin Respitory Rate 2016-06-15 13:29:00 Memori al Vin Systolic (mm Hg) 2016-06-15 13:29:00 Mendoza rial Vin Diastolic (mm Hg) 2016-06-15 13:29:00 Mem orial [place] Temperature Oral (F) 2016-06-14 10:56:00 97.1 F [facility] [place] Temperature Oral (F) 2016-06-14 06:55:00 97.1 F Memorial Vin Temperature Oral (F) 2016-06-12 10:00:00 96.8 F Memorial Vin Weight 2016-06-11 04:25:00 Memorial Vin Height 2016-06-11 04:25:00 160.02 cm [facility] [place] BMI Calculated 2016-06-11 04:25:00 Memori al [place] Heart Rate 2016-06-11 02:04:00 [facility] [place] Heart Rate 2016-06-11 00:00:00 Memorial Vin Heart Rate 2016-06-10 20:30:00 Memorial Vin Weight 2016-06-10 16:04:00 Memorial Vin BMI Calculated 2016-06-10 16:04:00 Memori al [place] Height 2016-06-10 16:04:00 160.02 cm [facility] [place] Temperature Oral (F) 2014-06-26 15:12:00 98.0 F [facility] [place] Systolic (mm Hg) 2014-06-26 15:12:00 Mendoza rial Vin Heart Rate 2014-06-26 15:12:00 [facility] [place] Diastolic (mm Hg) 2014-06-26 15:12:00 Mem orial Vin Respitory Rate 2014-06-26 15:12:00 Memori al Vin Systolic (mm Hg) 2014-06-26 13:53:00 Mendoza rial Vin Diastolic (mm Hg) 2014-06-26 13:53:00 Mem orial [place] Respitory Rate 2014-06-26 13:53:00 Memori al Vin Temperature Oral (F) 2014-06-26 13:53:00 98.0 F [facility] [place] Temperature Oral (F) 2014-06-26 12:37:00 98.2 F Memorial Vin Respitory Rate 2014-06-26 12:37:00 Memori al Vin Systolic (mm Hg) 2014-06-26 12:37:00 Mendoza rial Vin Diastolic (mm Hg) 2014-06-26 12:37:00 Mem orial Vin Heart Rate 2014-06-26 09:21:00 Memorial Vin Heart Rate 2014-06-26 06:08:00 [facility] [place] Height 2014-06-26 05:35:00 154.94 cm Memorial Vin Weight 2014-06-26 05:35:00 Memorial Vin BMI Calculated 2014-06-26 05:35:00 Memori al Vin Respitory Rate 2013-04-15 06:10:00 Memori al Vin Diastolic (mm Hg) 2013-04-15 06:10:00 Mem orial Vin Heart Rate 2013-04-15 06:10:00 [facility] [place] Systolic (mm Hg) 2013-04-15 06:10:00 Mendoza rial [place] Temperature Oral (F) 2013-04-15 06:10:00 98.7 F Memorial Vin Respitory Rate 2013-04-15 05:37:00 Memori al Vin Diastolic (mm Hg) 2013-04-15 05:37:00 Mem orial [place] Systolic (mm Hg) 2013-04-15 05:37:00 Mendoza rial [place] Temperature Oral (F) 2013-04-15 05:37:00 98.2 F Memorial Vin Heart Rate 2013-04-15 05:37:00 Memorial Vin Height 2013-04-15 02:06:00 160.02 cm [facility] [place] Weight 2013-04-15 02:06:00 [facility] [place] Temperature Oral (F) 2013-04-15 02:06:00 98.6 F [facility] [place] Respitory Rate 2013-04-15 02:06:00 Memori al [place] Heart Rate 2013-04-15 02:06:00 Memorial Vin Diastolic (mm Hg) 2013-04-15 02:06:00 Mem orial Vin Systolic (mm Hg) 2013-04-15 02:06:00 Mendoza rial [place] Weight 2012-03-14 21:33:00 [facility] [place] Systolic (mm Hg) 2011-12-01 00:33:00 Mendoza rial [place] Respitory Rate 2011-12-01 00:33:00 Memori al Vin Heart Rate 2011-12-01 00:33:00 Memorial Vin Diastolic (mm Hg) 2011-12-01 00:33:00 Mem orial Vin Temperature Oral (F) 2011-12-01 00:33:00 99.6 F [facility] [place] Diastolic (mm Hg) 2011-11-30 21:00:00 Mem orial Vin Heart Rate 2011-11-30 21:00:00 [facility] [place] Respitory Rate 2011-11-30 21:00:00 Memori al Vin Systolic (mm Hg) 2011-11-30 21:00:00 Mendoza rial [place] Temperature Oral (F) 2011-11-30 21:00:00 99.8 F Memorial Vin Respitory Rate 2011-11-30 16:30:00 Memori al Vin Systolic (mm Hg) 2011-11-30 16:30:00 Mendoza rial [place] Diastolic (mm Hg) 2011-11-30 16:30:00 Mem orial Vin Heart Rate 2011-11-30 16:30:00 Memorial Vin Temperature Oral (F) 2011-11-30 16:30:00 99.8 F [facility] [place] Weight 2011-11-29 11:40:00 [facility] Vin Height 2011-11-29 11:40:00 157.48 cm Memorial Vin Weight 2011-11-28 17:16:00 [facility] [place] Weight 2011-09-18 13:30:00 [facility] Vin Height 2011-09-18 13:30:00 154.94 cm Memorial Vin Heart Rate 2011-09-09 13:31:00 [facility] [place] Systolic (mm Hg) 2011-09-09 13:02:00 Mendoza rial Vin Diastolic (mm Hg) 2011-09-09 13:02:00 Mem orial Vin Respitory Rate 2011-09-09 13:02:00 Memori al Vin Temperature Oral (F) 2011-09-09 13:02:00 97.5 F [facility] [place] Diastolic (mm Hg) 2011-09-09 08:00:00 Mem orial [place] Heart Rate 2011-09-09 08:00:00 Memorial Vin Temperature Oral (F) 2011-09-09 08:00:00 98.6 F [facility] [place] Respitory Rate 2011-09-09 08:00:00 Memori al Vin Systolic (mm Hg) 2011-09-09 08:00:00 Mendoza rial Vin Respitory Rate 2011-09-09 04:55:00 Memori al Vin Diastolic (mm Hg) 2011-09-09 04:55:00 Mem orial Vin Systolic (mm Hg) 2011-09-09 04:55:00 Mednoza rial Vin Heart Rate 2011-09-09 04:55:00 [facility] [place] Temperature Oral (F) 2011-09-09 00:55:00 98.7 F [facility] Vin Weight 2011-09-01 19:59:00 [facility] Vin Height 2011-09-01 19:59:00 154.94 cm [facility] Vin Height 2011-09-01 07:01:00 154.94 cm [facility] Vin Weight 2011-09-01 07:01:00 [facility] [place] Respitory Rate 2011-08-23 18:00:00 Memori al Vin Heart Rate 2011-08-23 18:00:00 [facility] Vin Systolic (mm Hg) 2011-08-23 18:00:00 Mendoza rial Vin Diastolic (mm Hg) 2011-08-23 18:00:00 Mem orial Vin Temperature Oral (F) 2011-08-23 18:00:00 97.7 F [facility] [place] Heart Rate 2011-08-23 14:24:00 Memorial Vin Temperature Oral (F) 2011-08-23 14:24:00 98.2 F [facility] Vin Diastolic (mm Hg) 2011-08-23 14:24:00 Mem orial [place] Systolic (mm Hg) 2011-08-23 14:24:00 Mendoza rial [place] Respitory Rate 2011-08-23 14:24:00 Memori al [place] Systolic (mm Hg) 2011-08-23 11:15:00 Mendoza rial [place] Diastolic (mm Hg) 2011-08-23 11:15:00 Mem orial [place] Temperature Oral (F) 2011-08-23 11:00:00 98.3 F [facility] Vin Heart Rate 2011-08-23 11:00:00 [facility] [place] Respitory Rate 2011-08-22 22:00:00 Memori al Vin Height 2011-08-20 09:12:00 154.94 cm [facility] Weight 2011-08-20 09:12:00 [facility] 2011-08-19 20:28:00 154.94 cm [facility] Weight 2011-08-19 20:28:00 [facility] Procedures Procedure Date / Time Performing Clinician Source Performed POC GLUCOSE 2021-06-18 17:00:00 Aurelio Schumacher spital HEPATITIS B SURFACE 2021-06-18 14:07:00 Kenneth Bill [facility] ANTIGEN VANCOMYCIN LEVEL, RANDOM 2021-06-18 13:44:[address] [facility] HC COMPLETE BLD COUNT 2021-06-18 13:44:00 [facility] W/AUTO DIFF BASIC METABOLIC PANEL 2021-06-18 11:27:00 [facility] ESTIMATED GFR 2021-06-18 11:27:00 Aurelio Scuhmacher Jain Ho spital POC GLUCOSE 2021-06-18 08:07:00 Aurelio Schumacher Jain Ho spital HEMODIALYSIS 2021-06-18 06:16:53 Bill Cooper Ho spital POC GLUCOSE 2021-06-18 01:26:00 Aurelio Schumacher Jain Ho spital POC GLUCOSE 2021-06-17 21:58:00 Aurelio Schumacher Jain Ho spital HEMODIALYSIS 2021-06-17 18:25:45 Bill Cooper Jain Ho spital POC GLUCOSE 2021-06-17 17:36:00 RenettaAurelio Jain Ho spital POC GLUCOSE 2021-06-17 13:51:00 RenettaAurelio Jain spital BASIC METABOLIC PANEL 2021-06-17 11:16:00 [facility] HC COMPLETE BLD COUNT 2021-06-17 11:16:00 [facility] W/AUTO DIFF ESTIMATED GFR 2021-06-17 11:16:00 [facility] POC GLUCOSE 2021-06-17 02:50:00 [facility] CONSULT TO OSTOMY CARE 2021-06-17 00:31:48 [facility] NURSE HC COMPLETE BLD COUNT 2021-06-16 23:31:00 [facility] W/AUTO DIFF BASIC METABOLIC PANEL 2021-06-16 23:31:00 [facility] ESTIMATED GFR 2021-06-16 23:31:00 [facility] POC GLUCOSE 2021-06-16 23:19:00 [facility] OR [place] < 1 HOUR 2021-06-16 22:49:00 [facility] 2021-06-16 22:36:00 [facility] FUNGUS CULTURE 2021-06-16 22:36:00 Mando Diaz [facility] AEROBIC CULTURE 2021-06-16 22:36:00 Kaci Diazlicarlos [facility]berto [facility] GRAM STAIN 2021-06-16 22:36:00 Kaci Diazlicarlos alberto [facility] [place] AN ELECTIVE 2021-06-16 21:30:00 Jocelyne Zepeda [facility] SUPRAGLOTTIC AIRWAY AORTOGRAPHY, POSSIBLE 2021-06-16 21:17:00 [facility] POC , URINE 2021-06-16 20:46:00 [facility] [facility] 2021-06-16 17:28:00 Isabell [facility] Larry Romero POC GLUCOSE 2021-06-16 11:39:00 [facility] BASIC METABOLIC PANEL 2021-06-16 10:08:00 [facility] HC COMPLETE BLD COUNT 2021-06-16 10:08:00 [facility] W/AUTO DIFF PROTHROMBIN TIME WITH INR 2021-06-16 10:08:00 [facility] PARTIAL THROMBOPLASTIN 2021-06-16 10:08:00 [facility] TIME (PTT) TYPE AND SCREEN 2021-06-16 10:08:00 [facility] ESTIMATED GFR 2021-06-16 10:08:00 [facility] POC GLUCOSE 2021-06-16 01:59:00 [facility] POC GLUCOSE 2021-06-15 22:58:00 [facility] COVID-19 QUALITATIVE 2021-06-15 19:29:00 Wander [facility] RT-PCR POC GLUCOSE 2021-06-15 17:42:00 [facility] HEMODIALYSIS 2021-06-15 16:17:54 Delfino Akbar [facility] POC GLUCOSE 2021-06-15 15:41:00 [facility] POC GLUCOSE 2021-06-15 13:44:00 [facility] POC GLUCOSE 2021-06-15 13:00:00 [facility] ECG 12-LEAD 2021-06-15 12:48:21 Leni Barker Ho spital HC COMPLETE BLD COUNT 2021-06-15 11:42:00 [facility] W/AUTO DIFF BASIC METABOLIC PANEL 2021-06-15 11:42:00 [facility] ESTIMATED GFR 2021-06-15 11:42:00 [facility] POC GLUCOSE 2021-06-15 01:31:00 [facility] US DUPLEX ARTERIAL LOWER 2021-06-14 21:55:33 [facility] EXTREMITY RIGHT POC GLUCOSE 2021-06-14 21:51:00 [facility] POC GLUCOSE 2021-06-14 17:36:00 [facility] POC GLUCOSE 2021-06-14 13:30:00 [facility] POC GLUCOSE 2021-06-14 13:29:00 [facility] HC COMPLETE BLD COUNT 2021-06-14 10:13:00 [facility] W/AUTO DIFF BASIC METABOLIC PANEL 2021-06-14 10:13:00 [facility] ESTIMATED GFR 2021-06-14 10:13:00 [facility] POC GLUCOSE 2021-06-14 02:45:00 [facility] POC GLUCOSE 2021-06-13 21:47:00 [facility] POC GLUCOSE 2021-06-13 20:46:00 [facility] CBC WITH PLATELET AND 2021-06-13 16:10:00 [facility] DIFFERENTIAL COMPREHENSIVE METABOLIC 2021-06-13 16:10:00 [facility] PANEL ESTIMATED GFR 2021-06-13 16:10:00 [facility] HEMODIALYSIS 2021-06-13 15:26:35 [facility] POC GLUCOSE 2021-06-13 14:30:00 [facility] VANCOMYCIN LEVEL, RANDOM 2021-06-13 10:59:[address] [facility] POC GLUCOSE 2021-06-13 10:40:00 [facility] POC GLUCOSE 2021-06-13 02:28:00 [facility] POC GLUCOSE 2021-06-13 00:16:00 [facility] POC GLUCOSE 2021-06-12 23:31:00 [facility] POC GLUCOSE 2021-06-12 23:14:00 [facility] POC GLUCOSE 2021-06-12 18:19:00 [facility] POC GLUCOSE 2021-06-12 14:37:00 [facility] POC GLUCOSE 2021-06-12 14:01:00 [facility] POC GLUCOSE 2021-06-12 03:03:00 Robe Holden Whyte spital [facility] CT HEAD WO CONTRAST 2021-06-12 00:53:00 [facility]e [facility] POC GLUCOSE 2021-06-11 18:08:00 Nagel, Holden Whyte spital [place]írez POC GLUCOSE 2021-06-11 13:39:00 Nagel, Holden Whyte spital [place] HEMODIALYSIS 2021-06-11 12:38:38 Delfino Akbar [facility] POC GLUCOSE 2021-06-11 02:01:00 NagelHolden spital Ramírez POC GLUCOSE 2021-06-10 22:15:00 Holden Nagel spital [place]írez POC GLUCOSE 2021-06-10 17:39:00 Holden Nagel spital [place] POC GLUCOSE 2021-06-10 16:05:00 Holden Nagel spital [place] TISSUE CULTURE 2021-06-10 15:08:00 Juwan You spital GRAM STAIN 2021-06-10 15:08:00 Juwan You spital ANAEROBIC CULTURE 2021-06-10 15:04:00 Pati [facility] FUNGUS CULTURE 2021-06-10 15:04:00 Juwan You spital AEROBIC CULTURE 2021-06-10 15:04:00 Juwan You spital AFB CULTURE 2021-06-10 15:04:00 Juwan You spital GRAM STAIN 2021-06-10 15:04:00 Juwan You spital AFB STAIN 2021-06-10 15:04:00 Juwan You spital [place] AN ELECTIVE 2021-06-10 14:26:00 Sofi Roach spital SUPRAGLOTTIC AIRWAY Marquita INCISION AND DRAINAGE, 2021-06-10 14:26:00 Juwan You [facility] LOWER EXTREMITY HC COMPLETE BLD COUNT 2021-06-10 10:20:00 Juwan You [facility] W/AUTO DIFF BASIC METABOLIC PANEL 2021-06-10 10:20:00 Pati [facility] PROTHROMBIN TIME WITH INR 2021-06-10 10:20:00 [facility] PARTIAL THROMBOPLASTIN 2021-06-10 10:20:00 [facility] TIME (PTT) TYPE AND SCREEN 2021-06-10 10:20:00 Nagel, Holden Whyte Ho spital Ramírez ESTIMATED GFR 2021-06-10 10:20:00 Juwan You spital POC GLUCOSE 2021-06-10 03:11:00 Nagel, Holden Ferrara spital [place]rez POC GLUCOSE 2021-06-10 01:30:00 Nagel, Holden Ferrara spital [place] POC GLUCOSE 2021-06-09 22:22:00 Nagel, Holden Whyte Ho spital [place] POC GLUCOSE 2021-06-09 13:55:00 Nagel, Holden Whyte Ho spital [place] HEMODIALYSIS 2021-06-09 13:20:01 [facility]AN[facility] LEVEL, RANDOM 2021-06-09 11:46:[address] [facility] POC GLUCOSE 2021-06-09 02:06:00 Nagel, Holden Ferrara spital Ramírez POC GLUCOSE 2021-06-08 22:23:00 Nagel, Holden Whyte spital [place]rez POC GLUCOSE 2021-06-08 17:53:00 Nagel, Holden Ferrara spital [place] HC COMPLETE BLD COUNT 2021-06-08 16:06:00 [facility] W/AUTO DIFF POC GLUCOSE 2021-06-08 13:56:00 NagelHolden rodriguez spital [place]írez URINE CULTURE 2021-06-08 03:56:00 Holden Nagel spital [place] URINALYSIS SCREEN AND 2021-06-08 03:32:00 [facility] MICROSCOPY, WITH REFLEX TO CULTURE POC GLUCOSE 2021-06-08 01:15:00 Holden Nagel spital Ram[place]rez POC GLUCOSE 2021-06-07 22:07:00 NagelHolden rodriguez Ho spital [place]írez POC GLUCOSE 2021-06-07 18:01:00 Holden Nagel Ho spital [place] BASIC METABOLIC PANEL 2021-06-07 14:15:00 [facility] ESTIMATED GFR 2021-06-07 14:15:00 Holden Nagel Ho spital [place] POC GLUCOSE 2021-06-07 13:56:00 Holden Nagel Ho spital [place]rez POC GLUCOSE 2021-06-07 02:54:00 Holden Nagel spital [facility] CT LOWER EXTREMITY W 2021-06-07 01:22:59 [facility] CONTRAST RIGHT POC GLUCOSE 2021-06-06 23:50:00 Holden Nagel Ho spital [place]rez POC GLUCOSE 2021-06-06 17:31:00 Holden Nagel Ho spital [place] HEMODIALYSIS 2021-06-06 15:05:52 Delfino Akbar [facility] POC GLUCOSE 2021-06-06 14:03:00 Holden Nagel Ho spital [place] HC COMPLETE BLD COUNT 2021-06-06 10:31:00 [facility] W/AUTO DIFF BASIC METABOLIC PANEL 2021-06-06 10:31:00 [facility] ESTIMATED GFR 2021-06-06 10:31:00 Holden Nagel spital Ramírez POC GLUCOSE 2021-06-06 10:14:00 Holden Nagel Ho spital [place] POC GLUCOSE 2021-06-06 06:26:00 Holden Nagel Ho spital [place] POC GLUCOSE 2021-06-06 02:41:00 Holden Nagel Ho spital [place] POC GLUCOSE 2021-06-05 19:51:00 Holden Nagel Ho spital [place] BASIC METABOLIC PANEL 2021-06-05 18:06:00 [facility] HC COMPLETE BLD COUNT 2021-06-05 18:06:00 [facility] W/AUTO DIFF ESTIMATED GFR 2021-06-05 18:06:00 [facility] Ram[facility] POC GLUCOSE 2021-06-05 17:48:00 Robe [facility] Jain Ho spital Ramírez ANAEROBIC CULTURE 2021-06-05 17:10:00 Pati, [facility] ANAEROBIC CULTURE 2021-06-05 16:59:00 Pati, [facility] FUNGUS CULTURE 2021-06-05 16:59:00 Pati, [facility] spital AEROBIC CULTURE 2021-06-05 16:59:00 Pati, [facility] spital AFB CULTURE 2021-06-05 16:59:00 Pati, [facility] spital FUNGUS SMEAR 2021-06-05 16:59:00 Pati, [facility] spital AFB STAIN 2021-06-05 16:59:00 Pati, [facility] spital [place] AN ELECTIVE 2021-06-05 16:52:08 Herrera [facility] SUPRAGLOTTIC AIRWAY TISSUE CULTURE 2021-06-05 16:50:00 Pati [facility] spital GRAM STAIN 2021-06-05 16:50:00 Pati, [facility] spital DEBRIDEMENT, LOWER 2021-06-05 16:16:00 Pati [facility] EXTREMITY POC GLUCOSE 2021-06-05 13:32:00 Robe [facility] spital Ramírez TROPONIN T 2021-06-05 10:58:00 Char Viramontes [facility] ospital ABO AND RH CONFIRMATION BY 2021-06-05 10:54:00 Rachel Brasher [facility] PROTOCOL Vipin BASIC METABOLIC PANEL 2021-06-05 10:53:00 [facility] HC COMPLETE BLD COUNT 2021-06-05 10:53:00 [facility] W/AUTO DIFF ESTIMATED GFR 2021-06-05 10:53:00 Sivan Stewart [facility] PROTHROMBIN TIME WITH INR 2021-06-05 10:52:00 [facility] PARTIAL THROMBOPLASTIN 2021-06-05 10:52:00 Char Viramontes [facility] TIME (PTT) HCG QUALITATIVE, SERUM 2021-06-05 10:52:00 Myron Fernandes [facility] SCREEN POC GLUCOSE 2021-06-05 09:40:00 Rachel Brasher Ho spital [place] BLOOD CULTURE, AEROBIC & 2021-06-05 08:27:00 Rachel Brasher [facility] ANAEROBIC Vipin POC GLUCOSE 2021-06-05 07:42:00 Rachel Brasher Ho spital [place] POC GLUCOSE 2021-06-05 06:57:00 Rachel Brasher Ho spital [place] POC GLUCOSE 2021-06-05 06:10:00 Holden Nagel Ho spital Ramírez BLOOD CULTURE, AEROBIC & 2021-06-05 04:31:00 Rachel Brasher [facility] ANAEROBIC Vipin POC GLUCOSE 2021-06-05 04:04:00 Rachel Brasher Ho spital [place] POC GLUCOSE 2021-06-05 03:51:00 Rachel Brasher Ho spital [place] TYPE AND SCREEN 2021-06-05 03:40:00 Rachel Brasher Ho spital [place] POC GLUCOSE 2021-06-05 03:05:00 Rachel Brasher Ho spital [place] POC GLUCOSE 2021-06-05 02:23:00 Rachel Brasher Ho spital Vipin COVID-19 QUALITATIVE 2021-06-05 02:08:00 Sivan monge [facility] RT-PCR HC COMPLETE BLD COUNT 2021-06-05 01:24:00 [facility] W/AUTO DIFF PROTHROMBIN TIME WITH INR 2021-06-05 01:24:00 [facility] PARTIAL THROMBOPLASTIN 2021-06-05 01:24:00 hollySivan [facility] TIME (PTT) COMPREHENSIVE METABOLIC 2021-06-05 01:24:00 Sivan Stewart [facility] PANEL CREATINE KINASE, TOTAL 2021-06-05 01:24:00 Sivan Stewart [facility] (CPK) B NATRIURETIC PEPTIDE 2021-06-05 01:24:00 Sivan Stewart [facility] TROPONIN T 2021-06-05 01:24:00 Char Viramontes ospital ESTIMATED GFR 2021-06-05 01:24:00 Sivan Stewart [facility] ECG ED PRELIMINARY 2021-06-05 00:31:[address] [facility] INTERPRETATION ECG 12-LEAD 2021-06-05 00:19:17 [facility] POC [facility]SE 2021-05-25 18:04:00 [facility] 2021-05-25 14:00:00 Awe, [facility] CBC HEMOGRAM 2021-05-25 10:12:00 [facility] BASIC METABOLIC PANEL 2021-05-25 10:12:00 Awe, [facility] ESTIMATED GFR 2021-05-25 10:12:00 [facility] POC GLU[facility]SE 2021-05-25 02:49:00 Awe, [facility] POC GLUCOSE 2021-05-24 23:33:00 Awe, [facility] POC GLUCOSE 2021-05-24 17:56:00 Awe, Marilu Arvin [facility] POC GLUCOSE 2021-05-24 13:59:00 Awe, [facility] CBC HEMOGRAM 2021-05-24 10:12:00 Awe, [facility] BASIC METABOLIC PANEL 2021-05-24 10:12:00 Awe, [facility] ESTIMATED GFR 2021-05-24 10:12:00 Awe, [facility] POC GLUCOSE 2021-05-24 09:59:00 [facility] 2021-05-24 02:26:00 [facility] POC GLUCOSE 2021-05-24 00:03:00 Awe, [facility] TRANSFUSE RED BLOOD CELLS 2021-05-23 22:30:00 [facility] TRANSFUSE RED BLOOD CELLS 2021-05-23 21:30:00 [facility] POC GLUCOSE 2021-05-23 19:03:00 Awe, [facility] TYPE AND SCREEN 2021-05-23 14:38:00 [facility] HC COMPLETE BLD COUNT 2021-05-23 14:38:00 [facility] W/AUTO DIFF PREPARE RBC 2021-05-23 14:38:00 [facility] ospital PREPARE PLATELET PHERESIS 2021-05-23 14:38:00 [facility] POC GLUCOSE 2021-05-23 14:35:00 Awe, [facility] HEMODIALYSIS 2021-05-23 13:42:30 [facility] CBC HEMOGRAM 2021-05-23 12:31:00 Awe, [facility] BASIC METABOLIC PANEL 2021-05-23 12:31:00 Awe, [facility] ESTIMATED GFR 2021-05-23 12:31:00 Awe, [facility] POC GLUCOSE 2021-05-23 11:22:00 Awe, [facility] POC GLUCOSE 2021-05-23 03:30:00 Awe, [facility] POC GLUCOSE 2021-05-22 23:20:00 Awe, [facility] POC GLUCOSE 2021-05-22 17:20:00 Awe, [facility] POC GLUCOSE 2021-05-22 13:27:00 [facility], [facility] BASIC METABOLIC PANEL 2021-05-22 12:31:00 [facility] MAGNESIUM LEVEL 2021-05-22 12:31:00 Nikki Haynes ospital [place] CBC HEMOGRAM 2021-05-22 12:31:00 Nikki Haynes ospital [place]hel ESTIMATED GFR 2021-05-22 12:31:00 Nikki Haynes [facility] ospital Rahel POC GLUCOSE 2021-05-22 10:54:00 Awe, [facility] POC GLUCOSE 2021-05-22 07:28:00 Awe, [facility] POC GLUCOSE 2021-05-22 01:11:00 Awe, [facility] HEPATITIS B SURFACE 2021-05-21 21:08:00 [facility] ANTIBODY HEMODIALYSIS 2021-05-21 20:57:40 [facility] POC GLUCOSE 2021-05-21 17:57:00 Awe, [facility] POC GLUCOSE 2021-05-21 13:55:00 Awe, [facility] POC GLUCOSE 2021-05-21 10:41:00 Tom Barber ZZCOVID-19 ANTI-SPIKE IGG 2021-05-21 07:43:00 Clyde Olmstead [facility] ANTIBODY TITER Esa BASIC METABOLIC PANEL 2021-05-21 07:43:00 [facility] MAGNESIUM LEVEL 2021-05-21 07:43:00 Nikki Haynes ospital [place] CBC HEMOGRAM 2021-05-21 07:43:00 Nikki Haynes osjerodtal Ra[place] ZZCOVID-19 SEROLOGY 2021-05-21 07:43:00 [facility] PATIENT SURVEILLANCE Esa ESTIMATED GFR 2021-05-21 07:43:00 Andre Sofia spital [place] LACTIC ACID LEVEL 2021-05-21 07:43:00 Leodan Stevenson [facility] POC GLUCOSE 2021-05-21 06:35:00 Tom Barber spital HC COMPLETE BLD COUNT 2021-05-21 02:49:00 [facility] W/AUTO DIFF BASIC METABOLIC PANEL 2021-05-21 02:49:00 [facility] LACTIC ACID LEVEL 2021-05-21 02:49:00 [facility] OSMOLALITY, SERUM 2021-05-21 02:49:00 [facility] BETA HYDROXYBUTYRATE 2021-05-21 02:49:00 [facility] PROCALCITONIN 2021-05-21 02:49:00 [facility] ESTIMATED GFR 2021-05-21 02:49:00 [facility] POC GLUCOSE 2021-05-21 02:34:00 Tom Barber rajeshtal HC COMPLETE BLD COUNT 2021-05-21 00:28:00 Char Viramontes [facility] W/AUTO DIFF POC GLUCOSE 2021-05-20 23:57:00 Tom Barber spital BASIC METABOLIC PANEL 2021-05-20 23:20:[address] [facility] [place] LACTIC ACID LEVEL 2021-05-20 23:20:00 Angel [facility] [place] ESTIMATED GFR 2021-05-20 23:20:00 Andre Sofia [...] TRANSFUSE RED BLOOD CELLS 2021-05-20 17:21:00 Kimberlyn [facility] [place] TRANSFUSE PLATELET 2021-05-20 15:52:[address] [facility] PHERESIS BASIC METABOLIC PANEL 2021-05-20 15:25:00 [facility] [place] ESTIMATED GFR 2021-05-20 15:25:00 Andre Sofia spital [place] POC GLUCOSE 2021-05-20 14:48:00 Tom Barber Ho spital HEMODIALYSIS 2021-05-20 11:31:20 [facility] POC GLUCOSE 2021-05-20 10:44:00 Tom Barber spital HEPATITIS B SURFACE 2021-05-20 08:49:00 [facility] ANTIGEN HEPATITIS B SURFACE AB, 2021-05-20 08:49:00 [facility] QUANTITATIVE HC COMPLETE BLD COUNT 2021-05-20 08:25:00 [facility] W/AUTO DIFF BASIC METABOLIC PANEL 2021-05-20 08:25:00 [facility] MAGNESIUM LEVEL 2021-05-20 08:25:00 [facility] ospital PHOSPHORUS LEVEL 2021-05-20 08:25:00 [facility] PROTHROMBIN TIME WITH INR 2021-05-20 08:25:00 Leodan Stevenson [facility] ESTIMATED GFR 2021-05-20 08:25:00 Juwan You spital HEMOGLOBIN A1C 2021-05-20 08:25:00 Nikki Haynes ospital [place] POC GLUCOSE 2021-05-20 06:34:00 Tom Barber spital ARTERIAL BLOOD GAS 2021-05-20 04:36:00 [facility] 12-LEAD 2021-05-20 03:42:28 [facility] spital PROTHROMBIN TIME WITH INR 2021-05-20 02:54:00 [facility] COMPLETE BLD COUNT 2021-05-20 02:54:00 [facility]FF BASIC METABOLIC PANEL 2021-05-20 02:54:00 [facility] LACTIC ACID LEVEL 2021-05-20 02:54:00 [facility] VENOUS BLOOD GAS 2021-05-20 02:54:00 [facility] ospital ESTIMATED GFR 2021-05-20 02:54:00 [facility] spital POC GLUCOSE 2021-05-20 02:54:00 oTm Barber spital XR CHEST 1 VW PORTABLE 2021-05-20 02:51:[facility] [place] [facility] 2021-05-20 01:30:15 Juwan You spital TRANSFUSE RED BLOOD CELLS 2021-05-20 00:59:00 Juwan You [facility] [place] AN ELECTIVE 2021-05-20 00:53:01 Sukhjinder Medina spital SUPRAGLOTTIC AIRWAY [place] INCISION AND DRAINAGE, 2021-05-20 00:45:00 Juwan You [facility] HEMATOMA HC COMPLETE BLD COUNT 2021-05-19 22:13:00 [facility] W/AUTO DIFF BASIC METABOLIC PANEL 2021-05-19 22:13:00 [facility] PROTHROMBIN TIME WITH INR 2021-05-19 22:13:00 [facility] PARTIAL THROMBOPLASTIN 2021-05-19 22:13:00 [facility] TIME (PTT) MAGNESIUM LEVEL 2021-05-19 22:13:00 Char Viramontesist H ospital ESTIMATED GFR 2021-05-19 22:13:00 Juwan You spital POC GLUCOSE 2021-05-19 22:00:00 Errol Luther [facility] SURGICAL PATHOLOGY REQUEST 2021-05-19 21:47:00 Errol [facility] POC GLUCOSE 2021-05-19 21:17:00 Juwan You spital ACTIVATED CLOTTING TIME 2021-05-19 19:12:00 BarberTom trevino [facility] [place] AN ELECTIVE 2021-05-19 18:11:04 Sukhjinder Medina spital SUPRAGLOTTIC AIRWAY [place] LOWER EXTREMITY 2021-05-19 17:59:00 Juwan You spital ANGIOGRAM,POSSIBLE ANGIOPLASTY,POSSIBLE STENT XR CHEST 1 VW PORTABLE 2021-05-19 15:47:37 [facility] 2021-05-19 14:34:00 Juwan You spital POC PANEL 2021-05-19 14:34:00 Juwan You spital TYPE AND SCREEN 2021-05-19 14:05:00 Isabell Dickerson spital Larry Romero PREPARE RBC 2021-05-19 14:05:00 Char Viramontes ospital PREPARE FRESH FROZEN 2021-05-19 14:05:[address] [facility] PLASMA PREPARE PLATELET PHERESIS 2021-05-19 14:05:00 Char Viramontes [facility] BASIC METABOLIC PANEL 2021-05-19 14:00:[address] [facility] Larry Romero PROTHROMBIN TIME WITH INR 2021-05-19 14:00:00 Jayla [facility] Larry Romero HC COMPLETE BLD COUNT 2021-05-19 14:00:[address] [facility] W/AUTO DIFF Larry J. ABO AND RH CONFIRMATION BY 2021-05-19 14:00:00 PatiTory [facility] PROTOCOL ESTIMATED GFR 2021-05-19 14:00:00 Isabell Dickerson COVID-19 QUALITATIVE 2021-05-19 12:40:00 Juwan You [facility] RT-PCR MEDICAL RELEASE/CLEARANCE 2021-05-13 06:01:00 Doctor Unassigned, [facility] FORMS [facility] US DUPLEX ARTERIAL LOWER 2021-05-12 15:21:31 Juwan You [facility] EXTREMITY BILATERAL Emergency department visit 2013-04-15 05:00:00 [...] procedure) Therapeutic, prophylactic, 2013-04-15 05:00:00 [facility] or diagnostic injection (specify substance or drug); each additional sequential intravenous push of a new substance/drug (List separately in addition to code for primary procedure) Therapeutic, prophylactic, 2013-04-15 05:00:00 [facility] or diagnostic injection (specify substance or drug); intravenous push, single or initial substance/drug [facility] EGD [facility] (esophagogastroduodenoscop y) gastric outlet [facility] Tubal [facility] 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 Plan of Care Planned Activity Planned Date Details Comments Source Future Scheduled 2022-06-11 HEPATITIS B VACCINES [facility] Test 02:09:30 (1 of 3 - 3-dose series) [code = HEPATITIS B VACCINES (1 of 3 - 3-dose series)] Future Scheduled 2022-06-11 COVID-19 VACCINE (#1) [facility] Test 02:09:30 [code = COVID-19 VACCINE (#1)] Future Scheduled 2022-06-11 Pneumococcal Vaccine: [facility] Test 02:09:30 Pediatrics (0 to 5 Years) and At-Risk Patients (6 to 64 Years) (1 - PCV) [code = Pneumococcal Vaccine: Pediatrics (0 to 5 Years) and At-Risk Patients (6 to 64 Years) (1 - PCV)] Future Scheduled 2022-06-11 Hepatitis C screening [facility] Test 02:09:30 (procedure) [code = 896989300] Future Scheduled 2022-06-11 Screening for [facility] Test 02:09:30 malignant neoplasm of cervix (procedure) [code = [id number]] Future Scheduled 2022-06-11 INFLUENZA VACCINE Method [facility] Test 02:09:30 [code = INFLUENZA VACCINE] Future Scheduled 2022-06-11 HEPATITIS B VACCINES Met [facility] Test 02:09:30 (1 of 3 - 3-dose series) [code = HEPATITIS B VACCINES (1 of 3 - 3-dose series)] Future Scheduled 2022-06-11 COVID-19 VACCINE (#1) [facility] Test 02:09:30 [code = COVID-19 VACCINE (#1)] Future Scheduled 2022-06-11 Pneumococcal Vaccine: [facility] Test 02:09:30 Pediatrics (0 to 5 Years) and At-Risk Patients (6 to 64 Years) (1 - PCV) [code = Pneumococcal Vaccine: Pediatrics (0 to 5 Years) and At-Risk Patients (6 to 64 Years) (1 - PCV)] Future Scheduled 2022-06-11 Hepatitis C screening [facility] Test 02:09:30 (procedure) [code = [id number]] Future Scheduled 2022-06-11 Screening for [facility] Test 02:09:30 malignant neoplasm of cervix (procedure) [code = [id number]] Future Scheduled 2022-06-11 INFLUENZA VACCINE Method [facility] Test 02:09:30 [code = INFLUENZA VACCINE] Future Scheduled 2022-06-11 HEPATITIS B VACCINES Met [facility] Test 02:09:30 (1 of 3 - 3-dose series) [code = HEPATITIS B VACCINES (1 of 3 - 3-dose series)] Future Scheduled 2022-06-11 COVID-19 VACCINE (#1) [facility] Test 02:09:30 [code = COVID-19 VACCINE (#1)] Future Scheduled 2022-06-11 Pneumococcal Vaccine: [facility] Test 02:09:30 Pediatrics (0 to 5 Years) and At-Risk Patients (6 to 64 Years) (1 - PCV) [code = Pneumococcal Vaccine: Pediatrics (0 to 5 Years) and At-Risk Patients (6 to 64 Years) (1 - PCV)] Future Scheduled 2022-06-11 Hepatitis C screening [facility] Test 02:09:30 (procedure) [code = 401066353] Future Scheduled 2022-06-11 Screening for [facility] Test 02:09:30 malignant neoplasm of cervix (procedure) [code = 350135636] Future Scheduled 2022-06-11 INFLUENZA VACCINE Method [facility] Test 02:09:30 [code = INFLUENZA VACCINE] Future Scheduled 2022-06-11 HEPATITIS B VACCINES Met [facility] Test 02:09:30 (1 of 3 - 3-dose series) [code = HEPATITIS B VACCINES (1 of 3 - 3-dose series)] Future Scheduled 2022-06-11 COVID-19 VACCINE (#1) [facility] Test 02:09:30 [code = COVID-19 VACCINE (#1)] Future Scheduled 2022-06-11 Pneumococcal Vaccine: [facility] Test 02:09:30 Pediatrics (0 to 5 Years) and At-Risk Patients (6 to 64 Years) (1 - PCV) [code = Pneumococcal Vaccine: Pediatrics (0 to 5 Years) and At-Risk Patients (6 to 64 Years) (1 - PCV)] Future Scheduled 2022-06-11 Hepatitis C screening [facility] Test 02:09:30 (procedure) [code = 759672665] Future Scheduled 2022-06-11 Screening for [facility] Test 02:09:30 malignant neoplasm of cervix (procedure) [code = 907191705] Future Scheduled 2022-06-11 INFLUENZA VACCINE Method [facility] Test 02:09:30 [code = INFLUENZA VACCINE] Future Scheduled 2022-06-01 HEPATITIS B VACCINES Met [facility] Test 16:17:59 (1 of 3 - 3-dose series) [code = HEPATITIS B VACCINES (1 of 3 - 3-dose series)] Future Scheduled 2022-06-01 COVID-19 VACCINE (#1) [facility] Test 16:17:59 [code = COVID-19 VACCINE (#1)] Future Scheduled 2022-06-01 Pneumococcal Vaccine: [facility] Test 16:17:59 Pediatrics (0 to 5 Years) and At-Risk Patients (6 to 64 Years) (1 - PCV) [code = Pneumococcal Vaccine: Pediatrics (0 to 5 Years) and At-Risk Patients (6 to 64 Years) (1 - PCV)] Future Scheduled 2022-06-01 Hepatitis C screening [facility] Test 16:17:59 (procedure) [code = 267931050] Future Scheduled 2022-06-01 Screening for [facility] Test 16:17:59 malignant neoplasm of cervix (procedure) [code = 218498656] Future Scheduled 2022-06-01 INFLUENZA VACCINE Method [facility] Test 16:17:59 [code = INFLUENZA VACCINE] Future Scheduled 2022-04-25 HEPATITIS B VACCINES Met [facility] Test 12:43:16 (1 of 3 - 3-dose series) [code = HEPATITIS B VACCINES (1 of 3 - 3-dose series)] Future Scheduled 2022-04-25 COVID-19 VACCINE (#1) [facility] Test 12:43:16 [code = COVID-19 VACCINE (#1)] Future Scheduled 2022-04-25 Pneumococcal Vaccine: [facility] Test 12:43:16 Pediatrics (0 to 5 Years) and At-Risk Patients (6 to 64 Years) (1 - PCV) [code = Pneumococcal Vaccine: Pediatrics (0 to 5 Years) and At-Risk Patients (6 to 64 Years) (1 - PCV)] Future Scheduled 2022-04-25 Hepatitis C screening [facility] Test 12:43:16 (procedure) [code = 275111294] Future Scheduled 2022-04-25 Screening for [facility] Test 12:43:16 malignant neoplasm of cervix (procedure) [code = 003696422] Future Scheduled 2022-04-25 INFLUENZA VACCINE Method [facility] Test 12:43:16 [code = INFLUENZA VACCINE] Future Scheduled 2022-02-27 HEPATITIS B VACCINES Met [facility] Test 05:24:42 (1 of 3 - 3-dose series) [code = HEPATITIS B VACCINES (1 of 3 - 3-dose series)] Future Scheduled 2022-02-27 COVID-19 VACCINE (#1) [facility] Test 05:24:42 [code = COVID-19 VACCINE (#1)] Future Scheduled 2022-02-27 Pneumococcal Vaccine: [facility] Test 05:24:42 Pediatrics (0 to 5 Years) and At-Risk Patients (6 to 64 Years) (1 - PCV) [code = Pneumococcal Vaccine: Pediatrics (0 to 5 Years) and At-Risk Patients (6 to 64 Years) (1 - PCV)] Future Scheduled 2022-02-27 Hepatitis C screening [facility] Test 05:24:42 (procedure) [code = 203168524] Future Scheduled 2022-02-27 Screening for [facility] Test 05:24:42 malignant neoplasm of cervix (procedure) [code = 615933351] Future Scheduled 2022-02-27 INFLUENZA VACCINE Method [facility] Test 05:24:42 [code = INFLUENZA VACCINE] Future Scheduled 2022-02-27 HEPATITIS B VACCINES Met [facility] Test 05:24:42 (1 of 3 - 3-dose series) [code = HEPATITIS B VACCINES (1 of 3 - 3-dose series)] Future Scheduled 2022-02-27 COVID-19 VACCINE (#1) [facility] Test 05:24:42 [code = COVID-19 VACCINE (#1)] Future Scheduled 2022-02-27 Pneumococcal Vaccine: [facility] Test 05:24:42 Pediatrics (0 to 5 Years) and At-Risk Patients (6 to 64 Years) (1 - PCV) [code = Pneumococcal Vaccine: Pediatrics (0 to 5 Years) and At-Risk Patients (6 to 64 Years) (1 - PCV)] Future Scheduled 2022-02-27 Hepatitis C screening [facility] Test 05:24:42 (procedure) [code = 938604551] Future Scheduled 2022-02-27 Screening for [facility] Test 05:24:42 malignant neoplasm of cervix (procedure) [code = 416131615] Future Scheduled 2022-02-27 INFLUENZA VACCINE Method [facility] Test 05:24:42 [code = INFLUENZA VACCINE] Future Scheduled 2022-02-27 HEPATITIS B VACCINES Met [facility] Test 05:24:42 (1 of 3 - 3-dose series) [code = HEPATITIS B VACCINES (1 of 3 - 3-dose series)] Future Scheduled 2022-02-27 COVID-19 VACCINE (#1) [facility] Test 05:24:42 [code = COVID-19 VACCINE (#1)] Future Scheduled 2022-02-27 Pneumococcal Vaccine: [facility] Test 05:24:42 Pediatrics (0 to 5 Years) and At-Risk Patients (6 to 64 Years) (1 - PCV) [code = Pneumococcal Vaccine: Pediatrics (0 to 5 Years) and At-Risk Patients (6 to 64 Years) (1 - PCV)] Future Scheduled 2022-02-27 Hepatitis C screening [facility] Test 05:24:42 (procedure) [code = 955904802] Future Scheduled 2022-02-27 Screening for [facility] Test 05:24:42 malignant neoplasm of cervix (procedure) [code = 860996638] Future Scheduled 2022-02-27 INFLUENZA VACCINE Method [facility] Test 05:24:42 [code = INFLUENZA VACCINE] Future Scheduled 2022-02-27 HEPATITIS B VACCINES Met [facility] Test 05:24:42 (1 of 3 - 3-dose series) [code = HEPATITIS B VACCINES (1 of 3 - 3-dose series)] Future Scheduled 2022-02-27 COVID-19 VACCINE (#1) [facility] Test 05:24:42 [code = COVID-19 VACCINE (#1)] Future Scheduled 2022-02-27 Pneumococcal Vaccine: [facility] Test 05:24:42 Pediatrics (0 to 5 Years) and At-Risk Patients (6 to 64 Years) (1 - PCV) [code = Pneumococcal Vaccine: Pediatrics (0 to 5 Years) and At-Risk Patients (6 to 64 Years) (1 - PCV)] Future Scheduled 2022-02-27 Hepatitis C screening [facility] Test 05:24:42 (procedure) [code = 929921491] Future Scheduled 2022-02-27 Screening for [facility] Test 05:24:42 malignant neoplasm of cervix (procedure) [code = 144795855] Future Scheduled 2022-02-27 INFLUENZA VACCINE Method [facility] Test 05:24:42 [code = INFLUENZA VACCINE] Future Scheduled 2022-02-27 HEPATITIS B VACCINES Met [facility] Test 05:24:42 (1 of 3 - 3-dose series) [code = HEPATITIS B VACCINES (1 of 3 - 3-dose series)] Future Scheduled 2022-02-27 COVID-19 VACCINE (#1) [facility] Test 05:24:42 [code = COVID-19 VACCINE (#1)] Future Scheduled 2022-02-27 Pneumococcal Vaccine: [facility] Test 05:24:42 Pediatrics (0 to 5 Years) and At-Risk Patients (6 to 64 Years) (1 - PCV) [code = Pneumococcal Vaccine: Pediatrics (0 to 5 Years) and At-Risk Patients (6 to 64 Years) (1 - PCV)] Future Scheduled 2022-02-27 Hepatitis C screening [facility] Test 05:24:42 (procedure) [code = 796431868] Future Scheduled 2022-02-27 Screening for [facility] Test 05:24:42 malignant neoplasm of cervix (procedure) [code = 137494856] Future Scheduled 2022-02-27 INFLUENZA VACCINE Method [facility] Test 05:24:42 [code = INFLUENZA VACCINE] Future Scheduled 2022-02-27 HEPATITIS B VACCINES Met [facility] Test 05:24:42 (1 of 3 - 3-dose series) [code = HEPATITIS B VACCINES (1 of 3 - 3-dose series)] Future Scheduled 2022-02-27 COVID-19 VACCINE (#1) [facility] Test 05:24:42 [code = COVID-19 VACCINE (#1)] Future Scheduled 2022-02-27 Pneumococcal Vaccine: [facility] Test 05:24:42 Pediatrics (0 to 5 Years) and At-Risk Patients (6 to 64 Years) (1 - PCV) [code = Pneumococcal Vaccine: Pediatrics (0 to 5 Years) and At-Risk Patients (6 to 64 Years) (1 - PCV)] Future Scheduled 2022-02-27 Hepatitis C screening [facility] Test 05:24:42 (procedure) [code = 476179930] Future Scheduled 2022-02-27 Screening for [facility] Test 05:24:42 malignant neoplasm of cervix (procedure) [code = 932955464] Future Scheduled 2022-02-27 INFLUENZA VACCINE Method [facility] Test 05:24:42 [code = INFLUENZA VACCINE] Future Scheduled 2022-02-27 HEPATITIS B VACCINES Met [facility] Test 05:24:42 (1 of 3 - 3-dose series) [code = HEPATITIS B VACCINES (1 of 3 - 3-dose series)] Future Scheduled 2022-02-27 COVID-19 VACCINE (#1) [facility] Test 05:24:42 [code = COVID-19 VACCINE (#1)] Future Scheduled 2022-02-27 Pneumococcal Vaccine: [facility] Test 05:24:42 Pediatrics (0 to 5 Years) and At-Risk Patients (6 to 64 Years) (1 - PCV) [code = Pneumococcal Vaccine: Pediatrics (0 to 5 Years) and At-Risk Patients (6 to 64 Years) (1 - PCV)] Future Scheduled 2022-02-27 Hepatitis C screening [facility] Test 05:24:42 (procedure) [code = 854375730] Future Scheduled 2022-02-27 Screening for [facility] Test 05:24:42 malignant neoplasm of cervix (procedure) [code = 016655693] Future Scheduled 2022-02-27 INFLUENZA VACCINE Method [facility] Test 05:24:42 [code = INFLUENZA VACCINE] Future Scheduled 2022-02-27 HEPATITIS B VACCINES Met [facility] Test 05:24:42 (1 of 3 - 3-dose series) [code = HEPATITIS B VACCINES (1 of 3 - 3-dose series)] Future Scheduled 2022-02-27 COVID-19 VACCINE (#1) [facility] Test 05:24:42 [code = COVID-19 VACCINE (#1)] Future Scheduled 2022-02-27 Pneumococcal Vaccine: [facility] Test 05:24:42 Pediatrics (0 to 5 Years) and At-Risk Patients (6 to 64 Years) (1 - PCV) [code = Pneumococcal Vaccine: Pediatrics (0 to 5 Years) and At-Risk Patients (6 to 64 Years) (1 - PCV)] Future Scheduled 2022-02-27 Hepatitis C screening [facility] Test 05:24:42 (procedure) [code = 790417929] Future Scheduled 2022-02-27 Screening for [facility] Test 05:24:42 malignant neoplasm of cervix (procedure) [code = 764938520] Future Scheduled 2022-02-27 INFLUENZA VACCINE Method [facility] Test 05:24:42 [code = INFLUENZA VACCINE] Future Scheduled 2021-07-22 COVID-19 VACCINE (1) Met [facility] Test 13:11:04 [code = COVID-19 VACCINE (1)] Future Scheduled 2021-07-22 Hepatitis C screening [facility] Test 13:11:04 (procedure) [code = 975503240] Future Scheduled 2021-07-22 Screening for [facility] Test 13:11:04 malignant neoplasm of cervix (procedure) [code = 479858626] Future Scheduled 2021-07-22 [facility] 13:11:04 [code = INFLUENZA VACCINE] Encounters Start End Encounter Admission Attending Care Care Encounter Source Date/Time Date/Time Type Type Clinicians Facility Department ID 2022-04-29 Outpatient [facility] [id number] [place] 09:02:27 [id number] [facility] 2022-04-28 Outpatient [facility] [id number] [place] 12:17:07 [id number] [facility] 2021-12-29 Outpatient [facility] [id number] [place] 11:56:31 [id number] [facility] 2021-12-19 Outpatient [facility] [id number] [place] 14:05:12 [id number] [facility] 2021-12-12 Outpatient [facility] [id number] [place] 12:11:07 [id number] [facility] 2021-12-05 Outpatient [facility] [id number] [place] 20:09:51 [id number] [facility] 2021-10-28 Outpatient [facility] [id number] [place] 17:04:22 [id number] [facility] 2021-07-22 Outpatient nullFlavo [facility] [id number] Memoria 00:10:30 r Medical 05 l [facility] 2021-07-22 Preadmit nullFlavo [id number] Memoria 00:10:30 r [facility] 68 [facility] 2021-07-22 Outpatient nullFlavo [facility] [id number] Memoria 00:10:30 r Medical 06 l [facility] 2021-04-22 Emergency [facility] [id number] Univers 02:13:03 ity [facility] 2021-04-18 Emergency [facility] [id number] [facility]17 Emergency [facility] [id number] [facility]:46[facility]22-[facility]-09 2022-04-09 Outpatient Nodal_J [facility] [id number] [facility] 00:00:00 00:00:00 [facility] 2022-01-02 2022-01-02 Outpatient Deshazo_T [facility] G [id number] -2021 [facility] 03:37:00 03:37:00 0715 [facility] 2021-12-15 2021-12-15 Outpatient [facility] [id number] [place] 08:00:00 08:00:00 [facility] 2021-12-02 2021-12-02 Travel 1.2.840.1 1.2.517.499 [id number] Methodi 00:00:00 00:00:[address] 3.430.2.7 0.2.7.3.698 Ho spita .3.655514 084.8 l .8 2021-12-02 2021-12-02 Travel 1.2.840.1 1.2.529.281 7138 [id number] Methodi 00:00:00 00:00:[address] 3.430.2.7 0.2.7.3.698 Ho spita .3.200244 084.8 l .8 2021-11-13 2021-11-13 Transcribe [place], 1.2.840.1 [id number] Methodi 00:00:00 00:00:00 Orders Jose Miguel G. 86774.1.[address] 3.430.2.7 Hospit a .3.857472 l .8 2021-11-13 2021-11-13 Transcribe [place], 1.2.840.1 [id number] 21 [id number] Methodi 00:00:00 00:00:00 Orders Jose Miguel G. 99745.1.[address] 3.430.2.7 Hospit a .3.160500 l .8 2021-11-05 2021-11-05 [id number] 12:00:00 12:00:00 0518 [facility]ica l [facility] 2021-10-29 2021-10-29 Telephone Rosy, 1.2.840.1 [id number] 020 [id number] Methodi 00:00:00 00:00:[address] Mohamed 3.430.2.7 Hospit a .3.153423 l .8 2021-10-29 2021-10-29 Telephone Rosy, 1.2.840.1 [id number] 036 [id number] Methodi 00:00:00 00:00:[address] Mohamed 3.430.2.7 Hospit a .3.348657 l .8 2021-08-20 2021-08-[address]T [facility] [id number] -2021 [facility] 12:30:00 12:30:00 0302 Medica l Group 2021-07-08 2021-07-08 Office Ann, 1.2.840.1 [id number] Methodi 13:00:00 14:25:36 Visit Bessie 85747.1.[address] [place] 3.430.2.7 Hosp jo-ann .3.256442 l .8 2021-07-08 2021-07-08 Telephone Anthony, 1.2.840.1 [id number] 2099 [id number] Methodi 00:00:00 00:00:[address] 3.430.2.7 Hospit a .3.174302 l .8 2021-07-08 2021-07-08 Travel 1.2.840.1 1.2.828.059 3702 [id number] Methodi 00:00:00 00:00:[address] 3.430.2.7 0.2.7.3.698 Ho spita .3.054684 084.8 l .8 2021-07-03 2021-07-03 CAV Melany 2.16.840. 2.16.840.1. CLAC [id number] [facility] 19:00:00 20:00:00 Vladimir [address]346. 644572.4.[address]. [address] [facility] 4.6.54959 [id number] 2021-07-03 2021-07-03 Telephone Ann, 1.2.840.1 [id number] 2099 [id number] Methodi 00:00:00 00:00:[address] [facility] jo-ann .3.319097 l .8 2021-06-24 2021-06-24 [facility]patient [facility] [id number] -2021 [facility] 05:31:00 05:31:00 0104 Medica l Group 2021-06-23 2021-06-23 Telephone Anthony, 1.2.840.1 [id number] 2100 [id number] Methodi 00:00:00 00:00:[address] 3.430.2.7 Hospit a .3.376783 l .8 2021-06-04 2021-06-18 [facility] 1.2.840.1 [id number] Methodi 18:20:00 18:13:00 Encounter Rachel Brasher 03519.1.[address] [facility].430[facility]2.7 Hospita Shanda Shahid .3.033024 l Aurelio Schumacher .8 2021-06-16 2021-06-16 Anesthesia Yousif, 1.2.840.1 [id number] Methodi 23:59:59 23:59:59 Event Alesia Coelho 38727.1.[address] 3.430.2.7 Hospit a .3.428243 l .8 2021-06-16 2021-06-16 Surgery Joe, 1.2.840.1 [id number] Methodi 13:30:00 17:45:[address] [facility] 3.430.2.7 Hosp jo-ann .3.334263 l .8 2021-06-16 2021-06-16 Anesthesia Jose Carlos, 1.2.840.1 [id number] 962 [id number] Methodi 15:19:00 17:19:00 Event Veto 76152.1.1 309 s t V. 3.430.2.7 Hospit a .3.122147 l .8 2021-06-10 2021-06-10 Surgery PatiJuwan 1.2.840.1 [id number] 83229 [id number] Methodi 08:00:00 10:30:[address] 3.430.2.7 Hospit a .3.233682 l .8 2021-06-10 2021-06-10 Anesthesia Doc, 1.2.840.1 [id number] Methodi 08:26:00 09:40:00 Event Sofi 77185.1.[address] Marquita 3.430.2.7 Hosp jo-ann .3.629744 l .8 2021-06-09 2021-06-09 Prep for Robert, 1.2.840.1 [id number] 846 [id number] Methodi 00:00:00 00:00:00 Surgery Gayle 02404.1.[address] 3.430.2.7 Hospit a .3.181533 l .8 2021-06-09 2021-06-09 Prep for Robert, 1.2.840.1 [id number] 628 [id number] Methodi 00:00:00 00:00:00 Surgery Gayle 97565.1.[address] 3.430.2.7 Hospit a .3.101000 l .8 2021-06-05 2021-06-05 Anesthesia Frankie Chowdhury 1.2.840.1 [id number] Methodi 10:16:00 11:41:00 Event Chandler Silverman 10330.1.[address] 3.430.2.7 Hospit a .3.485924 l .8 2021-06-05 2021-06-05 Surgery PatiJuwan 1.2.840.1 [id number] Methodi 09:30:00 11:05:[address] 3.430.2.7 Hospit a .3.437758 l .8 2021-06-03 2021-06-03 Prep for Anthony, 1.2.840.1 [id number] 96581 Methodi 00:00:00 00:00:00 Surgery Forrest 09366.1.[address] 3.430.2.7 Hospit a .3.710919 l .8 2021-06-03 2021-06-03 Telephone Ureña, 1.2.840.1 [id number] Methodi 00:00:00 00:00:00 Crysandria 00407.1.1 218 s t 3.430.2.7 Hospit a .3.836490 l .8 2021-05-28 2021-05-28 Outpatient [facility] [id number] 021 [facility] 05:00:00 05:00:00 1208 Medica l Group 2021-05-27 2021-05-27 Patient Tam, 1.2.840.1 [id number] 058 [id number] Methodi 00:00:00 00:00:00 Outreach Maria M 10282.1.[address] 3.430.2.7 Hospit a .3.736455 l .8 2021-05-27 2021-05-27 Travel 1.2.840.1 1.2.605.985 9989 [id number] Methodi 00:00:00 00:00:[address] 3.430.2.7 0.2.7.3.698 Ho spita .3.991962 084.8 l .8 2021-05-27 2021-05-27 Orders Boles, 1.2.840.1 [id number] 2100 [id number] Methodi 00:00:00 00:00:00 Only Anila 81838.1.[address] 3.430.2.7 Hospit a .3.574540 l .8 2021-05-26 2021-05-26 [place] [id number] 021 [facility] 03:30:00 03:30:00 1206 Medica l Group 2021-05-26 2021-05-26 Telephone Anthony, 1.2.840.1 [id number] 2100 [id number] Methodi 00:00:00 00:00:[address] 3.430.2.7 Hospit a .3.199867 l .8 2021-05-19 2021-05-25 [facility] PatiJuwan 1.2.840.1 [id number] 2099 [id number] Methodi 06:00:00 15:59:00 Encounter Tom Barber 55765.1.[address] Marilu Koch 3.430.2.7 Hospita .3.397757 l .8 2021-05-21 2021-05-21 Outpatient [facility] [id number] 021 [facility] 03:30:00 03:30:00 1201 Medica Group 2021-05-19 2021-05-19 Anesthesia Adam, 1.2.840.1 [id number] Methodi 18:45:00 20:31:00 Event Sukhjinder 44288.1.[address] Kendall 3.430.2.7 Hospit a .3.137037 l .8 2021-05-19 2021-05-19 Surgery PatiTory 1.2.840.1 [id number] 02476 [id number] Methodi 18:50:00 19:55:[address] 3.430.2.7 Hospit a .3.181803 l .8 2021-05-19 2021-05-19 Anesthesia AdamSukhjinder 1.2.840.1 [id number] Methodi 12:00:00 15:14:00 Event Hanane Ledezma 78157.1.[address] 3.430.2.7 Hospit a .3.104970 l .8 2021-05-19 2021-05-19 Surgery PatiJuwan 1.2.840.1 [id number] [id number] Methodi 12:05:00 14:45:[address] 3.430.2.7 Hospit a .3.260883 l .8 2021-05-19 2021-05-19 Travel 1.2.840.1 1.2.280.631 9241 [id number] Methodi 00:00:00 00:00:[address] 3.430.2.7 0.2.7.3.698 Ho spita .3.779573 084.8 l .8 2021-05-14 2021-05-14 Telephone Corin, 1.2.840.1 [id number] Methodi 00:00:00 00:00:[address] 3.430.2.7 Hospit a .3.351386 l .8 2021-05-14 2021-05-14 Prep for Anthony, 1.2.840.1 [id number] Methodi 00:00:00 00:00:00 Surgery Forrest 09755.1.[address] 3.430.2.7 Hospit a .3.124754 l .8 2021-05-13 2021-05-13 Orders Doctor JOANNA 1.2.840.114 [id number] [facility] 00:00:00 00:00:00 Only Unassigned, MAGDALENO 350.1.13.10 [facility] [facility] 4.2.7.2.686 Baljinder as [id number] [address] 2021-05-12 2021-05-12 Office Juwan You 1.2.840.1 [id number] 84 Methodi 09:00:00 09:32:[address] 3.430.2.7 Hospit a .3.384330 l .8 2021-05-12 2021-05-12 Outpatient JUWAN YOU [facility] [id number] 3301 Busy 00:00:00 00:00:[address] 2021-05-12 2021-05-12 Telephone Anthony, 1.2.840.1 [id number] 2099 [id number] Methodi 00:00:00 00:00:[address] 3.430.2.7 Hospit a .3.212433 l .8 2021-05-12 2021-05-12 Travel 1.2.840.1 1.2.241.440 9997 [id number] Methodi 00:00:00 00:00:[address] 3.430.2.7 0.2.7.3.698 Ho spita .3.589291 084.8 l .8 2021-05-08 2021-05-08 Orders Anthony, 1.2.840.1 [id number] Methodi 00:00:00 00:00:00 Only Forrest 93380.1.[address] 3.430.2.7 Hospit a .3.756179 l .8 2021-05-08 2021-05-08 Telephone Boles, 1.2.840.1 [id number] Methodi 00:00:00 00:00:[address] 3.430.2.7 Hospit a .3.369409 l .8 2021-05-05 2021-05-05 Office Pati Juwan 1.2.840.1 [id number] Methodi 14:00:00 15:41:[address] 3.430.2.7 Hospit a .3.696695 l .8 2021-05-05 2021-05-05 Travel 1.2.840.1 1.2.741.508 3224 057432 Methodi 00:00:00 00:00:[address] 3.430.2.7 0.2.7.3.698 Ho spita .3.317965 084.8 l .8 2021-05-01 2021-05-01 Telephone Joe, 1.2.840.1 [id number] Methodi 00:00:00 00:00:[address] [facility] 3.430.2.7 Hosp jo-ann .3.439656 l .8 2021-04-08 2021-04-08 Outpatient R [facility] [id number] Univers 09:00:00 09:00:00 MONA ity of [facility] 2021-03-24 2021-03-24 Transition Misha Garcia 1.2.840.114 878 [id number] Univers 00:00:00 00:00:00 of Care Missy Guzman 350.1.13.10 [id number] [address] Branch 2021-03-19 2021-03-21 [facility] Jimena Easton 1.2.840.1 1007 [id number] Univers 08:24:00 23:08:00 Encounter Eze Dias 35175.1.1 ity of [place] Obed Naun 3.104.2.7 [place] .3.132948 Medica l .8 Branch 2021-03-21 2021-03-21 [place] [id number] Devoted 08:01:00 08:01:00 1001 Medica l Group 2021-03-19 2021-03-19 Orders Doctor 1.2.840.3 [id number] Univers 00:00:00 00:00:00 Only Unassigned, 96153.1.1 ity of [place] 3.104.2.7 [place] .3.372568 Medica l .8 Branch 2021-03-19 2021-03-19 Travel 1.2.840.1 1.2.217.732 8485 4264 Univers 00:00:00 00:00:00 20640.1.1 350.1.13.10 ity of 3.104.2.7 4.[place]7.3.698 [place] .3.170503 084.8 Medica l .8 Branch 2021-01-21 2021-01-29 Inpatient [facility] [id number] [place] hospital 15:50:00 20:14:00 sj Banuelos [address] [place] [address] 2021-01-21 2021-01-29 Outpatient Aydee [facility] [id number] 10:50:00 15:14:00 Monisha 12 2021-01-21 2021-01-[address] [facility] CAR 7512 MH 10:50:00 15:14:00 MONISHA 2021-01-24 2021-01-24 Outpatient DMG DMG [id number] Devoted 08:00:00 08:00:00 0806 Medica l Group 2021-01-21 2021-01-21 Outpatient Aydee [facility] [id number] 10:50:00 10:50:00 Monisha 12 2021-01-03 2021-01-03 Office Benedicto, [facility] 1.2.840.114 [id number] 07:44:43 09:30:54 Visit Alexandr ALTMAN 350.1.13.58 MEDICAL 9.2.7.2.686 BUILDING [phone] 2021-01-03 2021-01-03 Office Benedicto, [facility] 1.2.840.114 [id number] [place] 07:44:43 09:30:54 Visit Alexandr ALTMAN 350.1.13.58 [facility] 9.2.7.2.686 [facility] [phone] 1 2020-12-26 2020-12-26 Outpatient Sj KIMBLE [facility] [id number] Univers 10:30:00 10:30:00 [facility] 2020-12-24 2020-12-25 Outpatient nullFlavo [facility] [id number] Memoria 15:32:00 04:59:00 r Disease 11 l Joyce Banuelos 2020-12-24 2020-12-24 Outpatient Wright, [facility] [id number] 10:32:00 23:59:00 Wonggrupo Madden 2020-12-24 2020-12-24 Outpatient WRIGHT, [facility] [address] [facility] 10:32:00 23:59:00 HUI 2020-11-12 2020-11-12 Outpatient Sj GONZALEZ [facility] [id number] Univers 09:00:00 09:00:00 [facility] 2020-10-27 2020-10-27 Keyona Kimble [facility] 1.2.840.114 [id number] 00:00:00 00:00:00 (Out) Oz Lehman 350.1.13.10 [place] 4.2.7.2.686 Professio [phone] [facility] 059 [facility] 2020-10-27 2020-10-27 Keyona Kimble [facility] 1.2.840.114 [id number] Univers 00:00:00 00:00:00 (Out) Oz Lehman 350.1.13.10 it[place] of [place] [phone] [facility] 059 [facility] 2020-10-24 2020-10-24 Orders Doctor JOANNA 1.2.840.114 [id number] 00:00:00 00:00:00 Only Unassigned, MAGDALENO 350.1.13.10 [place] [facility] 4.2.7.2.686 [phone] [facility] 2020-10-24 2020-10-24 Orders Doctor JOANNA 1.2.840.114 [id number] Univers 00:00:00 00:00:00 Only Unassigned, MAGDALENO 350.1.13.10 ity of [place] [facility] 4.2.7.2.686 Baljinder as [phone] [address] 2020-09-24 2020-09-24 Refill Carlos, [facility] 1.2.840.114 [id number] 00:00:00 00:00:00 Jose Luis Lehman 350.1.13.10 [place] 4.2.7.2.686 Professio [phone] [facility] 220 [facility] 2020-09-24 2020-09-24 Refill Carlos, [facility] 1.2.840.114 [id number] Univers 00:00:00 00:00:00 Jose Luis Lehman 350.1.13.10 i ty of [place] [phone] In dical [facility] 220 [facility] 2020-09-09 2020-09-09 Patient Daniel, [facility] 1.2.840.114 [id number] 00:00:00 00:00:00 Outreach Earl PRIMARY 350.1.13.10 Manuel CARE 4.2.7.2.686 PAVILLION [phone] 388 2020-09-09 2020-09-09 [facility] 1.2.840.114 [id number] Univers 00:00:00 00:00:00 Outreach Earl PRIMARY 350.1.13.10 i ty of [place] [phone] In dical 388 [place] 2020-08-06 2020-08-06 [facility] [id number] Univers 14:30:00 14:30:00 WENTONG ity [facility] 2020-08-05 2020-08-05 [facility] [id number] Univers 13:30:00 13:30:00 DEJA ity [facility] 2020-07-23 2020-07-23 [facility] 1.2.840.114 [id number] Univers 13:39:08 23:59:00 Encounter Deja PRIMARY 350.1.13.10 ity of [place]2.[place].2.[place] [phone] In dical 807 [place] 2020-07-23 2020-07-23 Office [facility] 1.2.478.762 [id number] 13:31:20 14:37:36 Visit Deja PRIMARY 350.1.13.10 A CARE 4.2.7.2.686 PAVILLION [id number] 198 2020-07-23 2020-07-23 Office [facility] 1.2.662.066 [id number] Univers 13:31:20 14:37:36 Visit Deja PRIMARY 350.1.13.10 ity of [place].2.[place].2.[place] [phone] In dical 198 [place] 2020-07-23 2020-07-23 [address] [facility] [id number] Univers 13:30:00 13:30:00 DEJA ity of [facility] 2020-07-09 2020-07-09 Outpatient R [facility] [id number] Univers 09:00:00 09:00:00 ity of [facility] 2020-07-03 2020-07-03 Telephone Lamin [facility] 1.2.372.956 [id number] Univers 00:00:00 00:00:00 Sendbhavana Lehman 350.1.13.10 ity of [place] [phone] In dical nal [address] [place] [address] 2020-06-27 2020-06-27 Office [facility] 1.2.840.114 [id number] Univers 10:05:43 11:00:00 Visit Oz Lehman 350.1.13.10 ity of [place].2.[place] [phone] In dical nal [address] [place] [address] 2020-06-27 2020-06-27 Office [facility] 1.2.840.114 [id number] Univers 10:05:43 11:00:00 Visit Oz LEHMAN 350.1.13.10 ity of [place].2.7.2.[place] [phone] In dictx NAL [address] [place] [address] 2020-06-27 2020-06-27 Out[facility] [id number] Univers 09:30:00 11:00:00 SENDIL ity [facility] 2020-06-27 2020-06-27 [facility] [id number] Univers 09:30:00 09:30:00 SENDIL ity [facility] 2020-05-28 2020-05-28 Laboratory Pc, Adc Echo Room 1 - [facility] 1 .2.840.114 [id number] Univers 08:01:11 08:48:06 Only Oz Kimble 350.1.13. 10 ity of [place] [phone] In dical nal 059 [facility] 2020-05-28 2020-05-28 Outpatient R [facility] [id number] Univers 08:00:00 08:00[facility] 2020-05-10 2020-05-10 Nurse Visit, Laila Nurse [facility] 1.2.840.1 14 [id number] Univers 08:31:07 08:43:46 Visit Oz Kimble 350.1.13. 10 ity of [place] [phone] [place] [id number] [facility] 2020-05-10 2020-05-10 [facility] [id number] Univers 08:30:00 08:30:00 SENDIL [facility] 2020-05-07 2020-05-07 Outpatient R [facility] [id number] Univers 08:00:00 08:00:00 ity [facility] 2020-05-01 2020-05-01 Office [facility] 1.2.840.114 [id number] Univers 11:02:55 12:04:48 Visit Jose Luis Lehman 350.1.13.10 i ty of [place] [phone] [facility] 220 [facility] 2020-05-01 2020-05-01 Outpatient R CARLOS [facility] [id number] Univers 10:30:00 10:30:00 [facility] 2020-04-25 2020-04-25 Office Lamin [facility] 1.2.840.114 [id number] Univers 10:07:58 10:48:50 Visit Oz Lehman 350.1.13.10 ity of [place].2.[place] [phone] [address] 2020-04-25 2020-04-25 Out[facility] [id number] Univers 10:00:00 10:00:00 SENDIL [facility] 2020-04-25 2020-04-25 Orders Doctor MARSHALL 1.2.840.114 [id number] Univers 00:00:00 00:00:00 Only Unassigned, MAGDALENO 350.1.13.10 [facility] 4.2.7.2.686 Baljinder as [phone] [facility] 009 [place] 2020-04-05 2020-04-05 Outpatient R KIMBLE, [facility] [id number] Univers 09:30:00 09:30:00 SENDIL ity [facility] 2020-04-03 2020-04-03 Pastry Wrapper 2, Adc Lab [facility] 1.2.840.114 [id number] Univers 13:13:38 13:28:38 Visit Adum, Mona Misbah Lehman 350.1.13.10 ity of [place] [phone] In dical nal 353 [facility] 2020-04-03 2020-04-03 [address] [facility] [id number] Univers 13:00:00 13:00:00 MONA ity [facility] 2020-04-02 2020-04-02 [facility] 1..840.114 [id number] Univers 09:00:33 09:54:22 Visit Mona Lehman 350.1.13.10 ity of [place] [phone] In dical nal 134 [facility] 2020-04-02 2020-04-02 Outpatient R ADUM, [facility] [id number] Univers 08:30:00 08:30:00 MONA ity [facility] 2020-04-02 2020-04-02 Outpatient R ADUM, [facility] [id number] Univers 08:30:00 08:30:00 MONA ity [facility] 2020-04-02 2020-04-02 Emergency Khan, [facility] 1..840.114 [id number] Univers 00:24:00 01:09:00 Marlin Lehman 350.1.13.10 i ty of [place].2.[place] [phone] [facility] 084 [place] 2020-04-02 2020-04-02 Orders Doctor JOANNA 1.2.840.114 [id number] Univers 00:00:00 00:00:00 Only Unassigned, MAGDALENO 350.1.13.10 ity of [facility] 4.2.7.2.686 Baljinder as [phone] [address] 2020-03-16 2020-03-16 Telephone [facility] 1.2.840.114 [id number] Univers 00:00:00 00:00:00 Yury Lehman 350.1.13.10 i ty of [place] [phone] In dical nal 134 [facility] 2020-03-08 2020-03-08 [facility] [id number] Univers 11:00:00 11:00:00 LIMA low o f [facility] 2020-03-07 2020-03-07 Telephone [facility] 1.2.840.114 [id number] Univers 00:00:00 00:00:00 Lima Lehman 350.1.13.10 ity of [place] [phone] In dical [facility] 188 [facility] 2020-02-06 2020-02-06 Out[facility] [id number] Univers 09:30:00 09:30:00 BRANDON caron [facility] 2020-02-06 2020-02-06 Office [facility] 1.2.840.114 [id number] Univers 08:57:01 09:24:05 Visit Brandon Lehman 350.1.13.10 i ty of [place].2.[place] [phone] In dical nal 044 [facility] 2020-01-25 2020-01-31 Inpatient 1 Rei Waldron [facility] [id number] 21:31:00 18:15:00 Rei Waldron [facility] 2020-01-24 2020-01-24 [address] [facility] [id number] Univers 09:45:00 09:45:00 RACHEL low [facility] 2020-01-23 2020-01-23 [address] [facility] [facility] [id number] Univers 10:30:00 10:30:00 HUM ity [facility] 2019-12-18 2019-12-18 Outpatient Sj RUST [facility] [id number] Univers 08:00:00 08:00:00 YISSEL ity [facility] 2019-12-04 2019-12-04 Outpatient Sj JOHN [facility] [id number] Univers 14:15:00 14:15:00 BRANDON ity [facility] 2019-11-06 2019-11-06 TelemedicMAGDY Ayala 1.2.840.114 [id number] Univers 07:49:37 08:46:52 ne Visit Yissel Caron 350.1.13.10 ity of [facility] 4.2.7.2.686 [facility] [phone] [facility] BLDG. [address] 2019-11-06 2019-11-06 Outpatient Sj RUST [facility] [id number] Univers 08:00:00 08:00:00 YISSEL ity [facility] 2019-10-01 2019-10-01 Emergency [facility] 1.2.329.402 [id number] Univers 15:47:29 19:01:00 Stacie Lehman 350.1.13.10 i ty [facility] 4.2.7.2.686 [facility] [phone] [place] 501184 [place] 2019-09-05 2019-09-05 Outpatient Sj JOHN [facility] [id number] Univers 13:30:00 13:30:00 BRANDON ity [facility] 2019-08-28 2019-08-28 Outpatient ZEKE MARTINEZ [facility] [id number] Univers 15:00:00 15:00:00 ity [facility] 2019-02-27 2019-02-27 Telephone Kory [facility] 1.2.840.114 [id number] Univers 00:00:00 00:00:00 Adán PAVON 350.1.13.10 ity of [facility] 4.2.7.2.686 [facility] AT [phone] In jim MORALES [address] [place] [address] 2019-02-25 2019-02-25 Telephone Kory [facility] 1.2.840.114 [id number] Univers 00:00:00 00:00:00 Adán T SPECIALTY 350.1.13.10 it[place] AT [phone] In jim MORALES 205 [facility] 2019-02-22 2019-02-22 [facility] Oz Kimble 1.2.8 40.114 [id number] Univers 09:19:22 23:59:00 Encounter Outpt-Josy, [facility]cl [place] 350.1.13.10 ity of Hospital 4.2.7.2.686 Baljinder as [phone] [facility] [address] 2019-02-22 2019-02-22 [facility].8 40.114 [id number] Univers 08:00:00 09:18:00 Encounter Outpt-Josy, Ccl [place] 350.1.13.10 ity of Hospital 4.2.7.2.686 Baljinder as [phone] [facility] [address] 2019-02-17 2019-02-17 Office Putrosalie [facility] 1.2.840.114 [id number] Univers 13:09:08 13:54:39 Visit Gary gray [facility] 350.1.13.10 ity of [place].2.[place] [phone] [facility] [address] 2019-02-17 2019-02-17 Orders Doctor JOANNA 1.2.840.114 [id number] Univers 00:00:00 00:00:00 Only Unassigned, MAGDALENO 350.1.13.10 ity of [place] [facility] 4.2.7.2.686 Baljinder as [phone] [facility] 00[address] 2019-01-25 2019-01-25 Telephone Traci Kimble 1.2.522.675 [id number] Univers 00:00:00 00:00:00 Oz [place] 350.1.13.10 ity of Hospital 4.2.7.2.686 Baljinder as [phone] [facility] [address] 2019-01-25 2019-01-25 Telephone Traci Kimble 1.2.235.094 [id number] Univers 00:00:00 00:00:00 Oz [place] 350.1.13.[address] [facility] 4.2.7.2.686 Baljinder as [phone] [facility] [address] 2019-01-20 2019-01-20 Office [facility] 1.2.840.114 [id number] Univers 08:55:54 09:56:43 Visit Oz Lehman 350.1.13.10 ity of [place] [phone] In dical nal 059 [address] [facility] 2019-01-14 2019-01-15 Emergency [place], TRAUMA 1.2.840.114 [id number] Univers 18:20:35 00:24:00 [facility] 350.1.13.10 it [place]2.[place] [phone] [facility] 0[address] 2019-01-13 2019-01-13 Office [facility] 1.2.840.114 [id number] Univers 08:10:44 09:19:41 Visit Lima Lehman 350.1.13.10 ity of [place].2.[place] [phone] In dical nal 205 [facility] 2018-05-24 2018-05-24 Outpatient MICHAEL DORADO, [facility] [id number] [facility] 00:00:00 00:00:00 LY 2016-07-24 2016-07-30 Inpatient [facility] [id number] Memoria 02:04:00 16:20:00 r Vin 10 [facility] 2016-07-23 2016-07-30 Outpatient Yaquelin [facility] [id number] 20:04:00 10:20:00 Luna Segundo 2016-06-10 2016-06-15 Inpatient [facility] [id number] Memoria 16:02:00 18:23:00 r Vin 09 [facility] 2016-06-10 2016-06-15 Outpatient Franck [facility] [id number] 10:02:00 12:23:00 Joe Sanchez 2014-06-26 2014-06-26 nullFlavo [facility] [id number] Memoria 05:25:00 15:14:00 Emergency r Vin 08 [facility] 2014-06-25 2014-06-26 Outpatient Courtney, 2.16.840. 2.16.840. 1. [id number] 23:25:00 09:14:00 Atul 1.283142. [id number] 08 Cem 3.615.0.1 5.0.937 45 1388-10-25 2013-04-15 Emergency nullFlavo [id number] Memoria 21:04:00 01:45:[address] 2013-04-14 2013-04-15 Outpatient 2.16.840. 2.16.840.1. 4 [id number] Memoria 21:04:00 01:45:00 1.458494. [id number] 07 l 3.615.0.1 5.0.101 Jake n [facility] 2013-04-14 2013-04-15 Outpatient 2.16.840. 2.16.840.1. 4 [id number] Memoria 21:04:00 01:45:00 1.346687. [id number] 07 l 3.615.0.1 5.0.101 Jake n [facility] 2013-04-14 2013-04-15 Outpatient 2.16.840. 2.16.840.1. 4 [id number] Memoria 21:04:00 01:45:00 1.930704. [id number] 07 l 3.615.0.1 5.0.101 Jake n [facility] 2013-04-14 2013-04-15 Outpatient 2.16.840. 2.16.840.1. 4 [id number] Memoria 21:04:00 01:45:00 1.559540. [id number] 07 l 3.615.0.1 5.0.101 Jake n [facility] 2013-04-14 2013-04-15 Outpatient 2.16.840. 2.16.840.1. 4 [id number] Memoria 21:04:00 01:45:00 1.294384. [id number] 07 l 3.615.0.1 5.0.101 Jake n 01 [facility] 2012-03-14 2012-03-14 Emergency nullFlavo [id number] Memoria 16:32:00 22:39:00 r [facility] 04 [facility] 2011-11-28 2011-11-30 OU nullFlavo [facility] [id number] Memoria 12:16:00 20:40:[address] [facility] 03 [facility] 2011-09-18 2011-09-18 Emergency nullFlavo [facility] [id number] Memoria 08:23:00 13:34:[address] [facility] 02 [facility] 2011-09-01 2011-09-09 Inpatient nullFlavo [facility] [id number] Memoria 01:40:00 15:00:[address] [facility] 01 [facility] 2011-08-19 2011-08-23 Inpatient nullFlavo [facility] [id number] Memoria 14:25:00 15:28:00 r Medical 00 [facility] Results Test Description Test Time Test Comments Results Result Comments Source AFB culture 2021-07-22 18:13:19 Test Item Value Reference Range Interpretation Comme nts AFB culture isolate No growth after 6 weeks of Specimen InformationSpecimen (test code = 543-9) incubation. Source: DrainageSpecimen Site: Thigh: infected wound right thigh [facility] [id number] 18:13:19 Test Item Value Reference Range Interpretation Comments AFB culture No growth Specimen isolate (test after 6 weeks InformationSp ecimen code = 543-9) of Source: [place] geSpecimen incubation. Site: Thigh: in fected wound right [facility] [id number] 18:13:19 Test Item Value Reference Range Interpretation Comments AFB culture No growth Specimen isolate (test after 6 weeks InformationSp ecimen code = 543-9) of Source: [place] geSpecimen incubation. Site: Thigh: in fected wound right [facility] [id number] 18:13:19 Test Item Value Reference Range Interpretation Comments AFB culture No growth Specimen isolate (test after 6 weeks InformationSp ecimen code = 543-9) of Source: [place] geSpecimen incubation. Site: Thigh: in fected wound right [facility]2022-02-01 18:13:19 Test Item Value Reference Range Interpretation Comments AFB culture No growth Specimen isolate (test after 6 weeks InformationSp ecimen code = 543-9) of Source: [place] geSpecimen incubation. Site: Thigh: in fected wound right [facility]2022-02-01 18:13:19 Test Item Value Reference Range Interpretation Comments AFB culture No growth Specimen isolate (test after 6 weeks InformationSp ecimen code = 543-9) of Source: [place] geSpecimen incubation. Site: Thigh: in fected wound right [facility]2022-02-01 18:13:19 Test Item Value Reference Range Interpretation Comments AFB culture No growth Specimen isolate (test after 6 weeks InformationSp ecimen code = 543-9) of Source: [place] geSpecimen incubation. Site: Thigh: in fected wound right [facility]2022-02-01 18:13:19 Test Item Value Reference Range Interpretation Comments AFB culture No growth Specimen isolate (test after 6 weeks InformationSp ecimen code = 543-9) of Source: [place] geSpecimen incubation. Site: Thigh: in fected wound right [facility]2022-02-01 18:13:19 Test Item Value Reference Range Interpretation Comments AFB culture No growth Specimen isolate (test after 6 weeks InformationSp ecimen code = 543-9) of Source: [place] geSpecimen incubation. Site: Thigh: in fected wound right [facility]2022-02-01 18:13:19 Test Item Value Reference Range Interpretation Comments AFB culture No growth Specimen isolate (test after 6 weeks InformationSp ecimen code = 543-9) of Source: [place] geSpecimen incubation. Site: Thigh: in fected wound right [facility]2022-02-01 18:13:19 Test Item Value Reference Range Interpretation Comments AFB culture No growth Specimen isolate (test after 6 weeks InformationSp ecimen code = 543-9) of Source: [place] geSpecimen incubation. Site: Thigh: in fected wound right thi gh [facility] [id number] 18:15:13 Test Item Value Reference Range Interpretation Comments Fungus culture No growth Specimen isolate (test after 4 weeks InformationSp ecimen code = 1441) of Source: TissueS pecimen incubation. Site: Thigh [facility] [id number] 18:15:13 Test Item Value Reference Range Interpretation Comments Fungus culture No growth Specimen isolate (test after 4 weeks InformationSp ecimen code = 1441) of Source: TissueS pecimen incubation. Site: Thigh [facility] [id number] 18:15:13 Test Item Value Reference Range Interpretation Comments Fungus culture No growth Specimen isolate (test after 4 weeks InformationSp ecimen code = 1441) of Source: TissueS pecimen incubation. Site: Thigh [facility]2022-01-25 18:15:13 Test Item Value Reference Range Interpretation Comments Fungus culture No growth Specimen isolate (test after 4 weeks InformationSp ecimen code = 1441) of Source: TissueS pecimen incubation. Site: Thigh [facility] [id number] 18:15:13 Test Item Value Reference Range Interpretation Comments Fungus culture No growth Specimen isolate (test after 4 weeks InformationSp ecimen code = 1441) of Source: TissueS pecimen incubation. Site: Thigh [facility]2022-01-25 18:15:13 Test Item Value Reference Range Interpretation Comments Fungus culture No growth Specimen isolate (test after 4 weeks InformationSp ecimen code = 1441) of Source: TissueS pecimen incubation. Site: Thigh [facility]2022-01-25 18:15:13 Test Item Value Reference Range Interpretation Comments Fungus culture No growth Specimen isolate (test after 4 weeks InformationSp ecimen code = 1441) of Source: TissueS pecimen incubation. Site: [facility]igh [facility]2022-01-25 18:15:13 Test Item Value Reference Range Interpretation Comments Fungus culture No growth Specimen isolate (test after 4 weeks InformationSp ecimen code = 1441) of Source: TissueS pecimen incubation. Site: [facility]2022-01-25 18:15:13 Test Item Value Reference Range Interpretation Comments Fungus culture No growth Specimen isolate (test after 4 weeks InformationSp ecimen code = 1441) of Source: TissueS pecimen incubation. Site: [place] 571202-01-25 18:15:13 Test Item Value Reference Range Interpretation Comments Fungus culture No growth Specimen isolate (test after 4 weeks InformationSp ecimen code = 1441) of Source: TissueS pecimen incubation. Site: [place] 571202-01-25 18:15:13 Test Item Value Reference Range Interpretation Comments Fungus culture No growth Specimen isolate (test after 4 weeks InformationSp ecimen code = 1441) of Source: TissueS pecimen incubation. Site: [facility]2022-01-25 18:15:13 Test Item Value Reference Range Interpretation Comments Fungus culture No growth Specimen isolate (test after 4 weeks InformationSp ecimen code = 1441) of Source: TissueS pecimen incubation. Site: [facility]2022-01-25 18:15:13 Test Item Value Reference Range Interpretation Comments Fungus culture No growth Specimen isolate (test after 4 weeks InformationSp ecimen code = 1441) of Source: TissueS pecimen incubation. Site: [facility]2022-01-01 14:31:13 Test Item Value Reference Range Interpretation Comments Anaerobic No anaerobic Specimen culture isolate organisms InformationS pecimen (test code = isolated. Source: TissueS pecimen 552) Site: [place] [id number] 14:31:13 Test Item Value Reference Range Interpretation Comments Anaerobic No anaerobic Specimen culture isolate organisms InformationS pecimen (test code = isolated. Source: TissueS pecimen 552) Site: [place] 956562-01-01 14:31:13 Test Item Value Reference Range Interpretation Comments Anaerobic No anaerobic Specimen culture isolate organisms InformationS pecimen (test code = isolated. Source: TissueS pecimen 552) Site: [place] 956562-01-01 14:31:13 Test Item Value Reference Range Interpretation Comments Anaerobic No anaerobic Specimen culture isolate organisms InformationS pecimen (test code = isolated. Source: TissueS pecimen 552) Site: [place] 956562-01-01 14:31:13 Test Item Value Reference Range Interpretation Comments Anaerobic No anaerobic Specimen culture isolate organisms InformationS pecimen (test code = isolated. Source: TissueS pecimen 552) Site: [place] [address]-01-01 14:31:13 Test Item Value Reference Range Interpretation Comments Anaerobic No anaerobic Specimen culture isolate organisms InformationS pecimen (test code = isolated. Source: TissueS pecimen 552) Site: [place] [address]-01-01 14:31:13 Test Item Value Reference Range Interpretation Comments Anaerobic No anaerobic Specimen culture isolate organisms InformationS pecimen (test code = isolated. Source: TissueS pecimen 552) Site: [place] 956562-01-01 14:31:13 Test Item Value Reference Range Interpretation Comments Anaerobic No anaerobic Specimen culture isolate organisms InformationS pecimen (test code = isolated. Source: TissueS pecimen 552) Site: [place] 956562-01-01 14:31:13 Test Item Value Reference Range Interpretation Comments Anaerobic No anaerobic Specimen culture isolate organisms InformationS pecimen (test code = isolated. Source: TissueS pecimen 552) Site: [place] 956562-01-01 14:31:13 Test Item Value Reference Range Interpretation Comments Anaerobic No anaerobic Specimen culture isolate organisms InformationS pecimen (test code = isolated. Source: TissueS pecimen 552) Site: [place] 956562-01-01 14:31:13 Test Item Value Reference Range Interpretation Comments Anaerobic No anaerobic Specimen culture isolate organisms InformationS pecimen (test code = isolated. Source: TissueS pecimen 552) Site: [place] [address]-01-01 14:31:13 Test Item Value Reference Range Interpretation Comments Anaerobic No anaerobic Specimen culture isolate organisms InformationS pecimen (test code = isolated. Source: TissueS pecimen 552) Site: [place] [address]-01-01 14:31:13 Test Item Value Reference Range Interpretation Comments Anaerobic No anaerobic Specimen culture isolate organisms InformationS pecimen (test code = isolated. Source: TissueS pecimen 552) Site: [facility] [id number] 16:51:58 Test Item Value Reference Range Interpretation Comments Gram stain No WBC's or Specimen isolate (test organisms seen. Information Specimen code = 1469) Source: [facility] [id number] 16:51:58 Test Item Value Reference Range Interpretation Comments Aerobic culture No growth Specimen isolate (test after 3 days. InformationSp ecimen code = 498) Source: [facility] Site: [facility] [id number] 16:51:58 Test Item Value Reference Range Interpretation Comments Fungus smear No fungi Specimen (test code = observed. InformationSpec imen Source: 1443) [facility] Site: [facility] [id number] 16:51:58 Test Item Value Reference Range Interpretation Comments Gram stain No WBC's or Specimen isolate (test organisms seen. Information Specimen code = 1469) Source: [facility] Site: [facility] [id number] 16:51:58 Test Item Value Reference Range Interpretation Comments Aerobic culture No growth Specimen isolate (test after 3 days. InformationSp ecimen code = 498) Source: [facility] [id number] 16:51:58 Test Item Value Reference Range Interpretation Comments Fungus smear No fungi Specimen (test code = observed. InformationSpec imen Source: 1443) [facility] Site: [facility] [id number] 16:51:58 Test Item Value Reference Range Interpretation Comments Gram stain No WBC's or Specimen isolate (test organisms seen. Information Specimen code = 1469) Source: [facility] Site: [facility] [id number] 16:51:58 Test Item Value Reference Range Interpretation Comments Aerobic culture No growth Specimen isolate (test after 3 days. InformationSp ecimen code = 498) Source: [facility] [id number] 16:51:58 Test Item Value Reference Range Interpretation Comments Fungus smear No fungi Specimen (test code = observed. InformationSpec imen Source: 1443) [facility] Site: [facility] [id number] 16:51:58 Test Item Value Reference Range Interpretation Comments Gram stain No WBC's or Specimen isolate (test organisms seen. Information Specimen code = 1469) Source: [facility] [id number] 16:51:58 Test Item Value Reference Range Interpretation Comments Aerobic culture No growth Specimen isolate (test after 3 days. InformationSp ecimen code = 498) Source: [facility]S [facility] [id number] 16:51:58 Test Item Value Reference Range Interpretation Comments Fungus smear No fungi Specimen (test code = observed. InformationSpec imen Source: 1443) TissueSpecime Site: [facility] [id number] 16:51:58 Test Item Value Reference Range Interpretation Comments Gram stain No WBC's or Specimen isolate (test organisms seen. Information Specimen code = 1469) Source: [facility] [id number] 16:51:58 Test Item Value Reference Range Interpretation Comments Aerobic culture No growth Specimen isolate (test after 3 days. InformationSp ecimen code = 498) Source: [facility] [id number] 16:51:58 Test Item Value Reference Range Interpretation Comments Fungus smear No fungi Specimen (test code = observed. InformationSpec imen Source: 1443) TissueSpecime Site: [facility] [id number] 16:51:58 Test Item Value Reference Range Interpretation Comments Gram stain No WBC's or Specimen isolate (test organisms seen. Information Specimen code = 1469) Source: [facility] [id number] 16:51:58 Test Item Value Reference Range Interpretation Comments Aerobic culture No growth Specimen isolate (test after 3 days. InformationSp ecimen code = 498) Source: [facility] [id number] 16:51:58 Test Item Value Reference Range Interpretation Comments Fungus smear No fungi Specimen (test code = observed. InformationSpec imen Source: 1443) [facility]Specime [facility] [id number] 16:51:58 Test Item Value Reference Range Interpretation Comments Gram stain No WBC's or Specimen isolate (test organisms seen. Information Specimen code = 1469) [facility]: [facility] [id number] 16:51:58 Test Item Value Reference Range Interpretation Comments Aerobic culture No growth Specimen isolate (test after 3 days. InformationSp ecimen code = 498) Source: [facility] Site: [facility] [id number] 16:51:58 Test Item Value Reference Range Interpretation Comments Fungus smear No fungi Specimen (test code = observed. InformationSpec imen Source: 1443) TissueSpecime Site: [facility]2021-12-31 16:51:58 Test Item Value Reference Range Interpretation Comments Gram stain No WBC's or Specimen isolate (test organisms seen. Information Specimen code = 1469) Source: [facility] Site: [facility]2021-12-31 16:51:58 Test Item Value Reference Range Interpretation Comments Aerobic culture No growth Specimen isolate (test after 3 days. InformationSp ecimen code = 498) Source: [facility] Site: [facility]2021-12-31 16:51:58 Test Item Value Reference Range Interpretation Comments Fungus smear No fungi Specimen (test code = observed. InformationSpec imen [facility]: 1443) [facility]2021-12-31 16:51:58 Test Item Value Reference Range Interpretation Comments Gram stain No WBC's or Specimen isolate (test organisms seen. Information Specimen code = 1469) Source: [facility] Site: [facility] [id number] 16:51:58 Test Item Value Reference Range Interpretation Comments Aerobic culture No growth Specimen isolate (test after 3 days. InformationSp ecimen code = 498) Source: [facility] Site: [facility] [id number] 16:51:58 Test Item Value Reference Range Interpretation Comments Fungus smear No fungi Specimen (test code = observed. InformationSpec imen Source: 1443) [facility] Site: [facility]2021-12-31 16:51:58 Test Item Value Reference Range Interpretation Comments Gram stain No WBC's or Specimen isolate (test organisms seen. Information Specimen code = 1469) Source: [facility] [id number] 16:51:58 Test Item Value Reference Range Interpretation Comments Aerobic culture No growth Specimen isolate (test after 3 days. InformationSp ecimen code = 498) Source: [facility] Site: [facility] [id number] 16:51:58 Test Item Value Reference Range Interpretation Comments Fungus smear No fungi Specimen (test code = observed. InformationSpec imen Source: 1443) TissueSpecime Site: [facility] [id number] 16:51:58 Test Item Value Reference Range Interpretation Comments Gram stain No WBC's or Specimen isolate (test organisms seen. Information Specimen code = 1469) Source: [facility] Site: [facility] [id number] 16:51:58 Test Item Value Reference Range Interpretation Comments Aerobic culture No growth Specimen isolate (test after 3 days. InformationSp ecimen code = 498) Source: [facility] Site: [facility] [id number] 16:51:58 Test Item Value Reference Range Interpretation Comments Fungus smear No fungi Specimen (test code = observed. InformationSpec imen [facility]: 1443) [facility]2021-12-31 16:51:58 Test Item Value Reference Range Interpretation Comments Gram stain No WBC's or Specimen isolate (test organisms seen. Information Specimen code = 1469) Source: [facility] Site: [facility] [id number] 16:51:58 Test Item Value Reference Range Interpretation Comments Aerobic culture No growth Specimen isolate (test after 3 days. InformationSp ecimen code = 498) Source: [facility] Site: [facility] [id number] 16:51:58 Test Item Value Reference Range Interpretation Comments Fungus smear No fungi Specimen (test code = observed. InformationSpec imen [facility]: 1443[facility]2021-12-31 16:51:58 Test Item Value Reference Range Interpretation Comments Gram stain No WBC's or Specimen isolate (test organisms seen. Information Specimen code = 1469) Source: [facility] Site: [facility] [id number] 16:51:58 Test Item Value Reference Range Interpretation Comments Aerobic culture No growth Specimen isolate (test after 3 days. InformationSp ecimen code = 498) Source: TissueS pecimen [facility] [id number] 16:51:58 Test Item Value Reference Range Interpretation Comments Fungus smear No fungi Specimen (test code = observed. InformationSpec imen Source: 1443) TissueSpecimen Site: [facility] [id number] 17:00:57 Test Item Value Reference Range Interpretation Comments POC glucose (test code 79 mg/dL 65-99 Opera tor Name: Eboni = [id number]) AmiDevice ID: [id number] [facility] [id number] 17:00:57 Test Item Value Reference Range Interpretation Comments POC glucose (test code 79 mg/dL 65-99 Opera tor Name: Eboni = 13636-6) AmiDevice ID: [id number] [facility] [id number] 17:00:57 Test Item Value Reference Range Interpretation Comments POC glucose (test code 79 mg/dL 65-99 Opera tor Name: Eboni = 10682-6) AmiDevice ID: [id number] [facility] [id number] 17:00:57 Test Item Value Reference Range Interpretation Comments POC glucose (test code 79 mg/dL 65-99 Opera tor Name: Eboni = 57266-0) AmiDevice ID: [id number] [facility] [id number] 17:00:57 Test Item Value Reference Range Interpretation Comments POC glucose (test code 79 mg/dL 65-99 Opera tor Name: Eboni = 46635-7) AmiDevice ID: [id number] [facility] [id number] 17:00:57 Test Item Value Reference Range Interpretation Comments POC glucose (test code 79 mg/dL 65-99 Opera tor Name: Eboni = 53995-2) AmiDevice ID: [id number] [facility] [id number] 17:00:57 Test Item Value Reference Range Interpretation Comments POC glucose (test code 79 mg/dL 65-99 Opera tor Name: Eboni = 82240-9) AmiDevice ID: [id number] [facility] [id number] 17:00:57 Test Item Value Reference Range Interpretation Comments POC glucose (test code 79 mg/dL 65-99 Opera tor Name: Eboni = 35087-0) AmiDevice ID: [id number] [facility] [id number] 17:00:57 Test Item Value Reference Range Interpretation Comments POC glucose (test code 79 mg/dL 65-99 Opera tor Name: Eboni = 63054-6) AmiDevice ID: [id number] [facility] [id number] 17:00:57 Test Item Value Reference Range Interpretation Comments POC glucose (test code 79 mg/dL 65-99 Opera tor Name: Eboni = 04163-7) AmiDevice ID: [id number] [facility] [id number] 17:00:57 Test Item Value Reference Range Interpretation Comments POC glucose (test code 79 mg/dL 65-99 Opera tor Name: Eboni = 82517-2) AmiDevice ID: [id number] [facility] [id number] 17:00:57 Test Item Value Reference Range Interpretation Comments POC glucose (test code 79 mg/dL 65-99 Opera tor Name: Eboni = 75084-5) AmiDevice ID: [id number] [facility] [id number] 17:00:57 Test Item Value Reference Range Interpretation Comments POC glucose (test code 79 mg/dL 65-99 Opera tor Name: Eboni = 12875-0) AmiDevice ID: [id number] [facility] , [id number] 20:46:00 Test Item Value Reference Range Interpretation Comments test urine, POC (test Negative code = 3393514) Internal QC (test code = 257) QC acceptable [facility] , [id number] 20:46:00 Test Item Value Reference Range Interpretation Comments test urine, POC (test Negative code = 9539839) Internal QC (test code = 257) QC acceptable [facility] , [id number] 20:46:00 Test Item Value Reference Range Interpretation Comments test urine, POC (test Negative code = 7613956) Internal QC (test code = 257) QC [facility] [id number] 20:46:00 Test Item Value Reference Range Interpretation Comments test urine, POC (test Negative code = 8074659) Internal QC (test code = 257) [facility] [id number] 20:46:00 Test Item Value Reference Range Interpretation Comments test urine, POC (test Negative code = 7409139) Internal QC (test code = 257) QC [facility] , [id number] 20:46:00 Test Item Value Reference Range Interpretation Comments test urine, POC (test Negative code = 6561927) Internal QC (test code = 257) QC [facility] , [id number] 20:46:00 Test Item Value Reference Range Interpretation Comments test urine, POC (test Negative code = 4838325) Internal QC (test code = 257) QC acceptable [facility] , [id number] 20:46:00 Test Item Value Reference Range Interpretation Comments test urine, POC (test Negative code = 8987756) Internal QC (test code = 257) QC acceptable [facility] , [id number] 20:46:00 Test Item Value Reference Range Interpretation Comments test urine, POC (test Negative code = 9365783) Internal QC (test code = 257) QC acceptable [facility] , [id number] 20:46:00 Test Item Value Reference Range Interpretation Comments test urine, POC (test Negative code = 7732532) Internal QC (test code = 257) QC acceptable [facility] , [id number] 20:46:00 Test Item Value Reference Range Interpretation Comments test urine, POC (test Negative code = 0480276) Internal QC (test code = 257) QC [facility] , [id number] 20:46:00 Test Item Value Reference Range Interpretation Comments test urine, POC (test Negative code = 6586103) Internal QC (test code = 257) QC acceptable [facility] , [id number] 20:46:00 Test Item Value Reference Range Interpretation Comments test urine, POC (test Negative code = 7399528) Internal QC (test code = 257) QC acceptable [address]2021-12-27 17:27:33 Test Item Value Reference Range Interpretation Comments Ventricular rate (test code = 253) Atrial rate (test code = 255) [place] interval (test code = 266) QRSD interval [...] of 04-JUN-2021 18:19,-No significant change was found- [address]2021-12-27 17:27:33 Test Item Value Reference Range Interpretation Comments Ventricular rate (test code = 253) Atrial rate (test code = 255) [place] interval (test code = 266) QRSD interval [...] of 04-JUN-2021 18:19,-No significant change was found- [address]2021-12-27 17:27:33 Test Item Value Reference Range Interpretation Comments Ventricular rate (test code = 253) Atrial rate (test code = 255) [place] interval (test code = 266) QRSD interval [...] of 04-JUN-2021 18:19,-No significant change was found- [address]2021-12-27 17:27:33 Test Item Value Reference Range Interpretation Comments Ventricular rate (test code = 253) Atrial rate (test code = 255) [place] interval (test code = 266) QRSD interval [...] of 04-JUN-2021 18:19,-No significant change was found- [address]2021-12-27 17:27:33 Test Item Value Reference Range Interpretation Comments Ventricular rate (test code = 253) Atrial rate (test code = 255) [place] interval (test code = 266) QRSD interval [...] of 04-JUN-2021 18:19,-No significant change was found- [address]2021-12-27 17:27:33 Test Item Value Reference Range Interpretation Comments Ventricular rate (test code = 253) Atrial rate (test code = 255) [place] interval (test code = 266) QRSD interval [...] of 04-JUN-2021 18:19,-No significant change was found- [address]2021-12-27 17:27:33 Test Item Value Reference Range Interpretation Comments Ventricular rate (test code = 253) Atrial rate (test code = 255) [place] interval (test code = 266) QRSD interval [...] of 04-JUN-2021 18:19,-No significant change was found- [address]2021-12-27 17:27:33 Test Item Value Reference Range Interpretation Comments Ventricular rate (test code = 253) Atrial rate (test code = 255) [place] interval (test code = 266) QRSD interval [...] of 04-JUN-2021 18:19,-No significant change was found- [address]2021-12-27 17:27:33 Test Item Value Reference Range Interpretation Comments Ventricular rate (test code = 253) Atrial rate (test code = 255) [place] interval (test code = 266) QRSD interval [...] of 04-JUN-2021 18:19,-No significant change was found- [address]2021-12-27 17:27:33 Test Item Value Reference Range Interpretation Comments Ventricular rate (test code = 253) Atrial rate (test code = 255) [place] interval (test code = 266) QRSD interval [...] of 04-JUN-2021 18:19,-No significant change was found- [address]2021-12-27 17:27:33 Test Item Value Reference Range Interpretation Comments Ventricular rate (test code = 253) Atrial rate (test code = 255) [place] interval (test code = 266) QRSD interval [...] of 04-JUN-2021 18:19,-No significant change was found- [address]2021-12-27 17:27:33 Test Item Value Reference Range Interpretation Comments Ventricular rate (test code = 253) Atrial rate (test code = 255) [place] interval (test code = 266) QRSD interval [...] of 04-JUN-2021 18:19,-No significant change was found- [facility] 12 [id number] 17:27:33 Test Item Value Reference Range Interpretation Comments Ventricular rate (test code = 253) Atrial rate (test code = 255) [place] interval (test code = 266) QRSD interval [...] of 04-JUN-2021 18:19,-No significant change was found- [facility] and [id number] 11:06:00 Test Item Value Reference Range Interpretation Comments ABO grouping (test code = 883-9) B Rh type (test code = 46786-4) POS Antibody screen (gel) (test code = NEG 890-4) [facility] and [id number] 11:06:00 Test Item Value Reference Range Interpretation Comments ABO grouping (test code = 883-9) B Rh type (test code = 65334-4) POS Antibody screen (gel) (test code = NEG 890-4) [facility] and [id number] 11:06:00 Test Item Value Reference Range Interpretation Comments ABO grouping (test code = 883-9) B Rh type (test code = 68196-4) POS Antibody screen (gel) (test code = NEG 890-4) [facility] and [id number] 11:06:00 Test Item Value Reference Range Interpretation Comments ABO grouping (test code = 883-9) B Rh type (test code = 16465-6) POS Antibody screen (gel) (test code = NEG 890-4) [facility] and [id number] 11:06:00 Test Item Value Reference Range Interpretation Comments ABO grouping (test code = 883-9) B Rh type (test code = 01152-4) POS Antibody screen (gel) (test code = NEG 890-4) [facility] and [id number] 11:06:00 Test Item Value Reference Range Interpretation Comments ABO grouping (test code = 883-9) B Rh type (test code = 13728-3) POS Antibody screen (gel) (test code = NEG 890-4) [facility] and [id number] 11:06:00 Test Item Value Reference Range Interpretation Comments ABO grouping (test code = 883-9) B Rh type (test code = 49931-3) POS Antibody screen (gel) (test code = NEG 890-4) [facility] and [id number] 11:06:00 Test Item Value Reference Range Interpretation Comments ABO grouping (test code = 883-9) B Rh type (test code = 05091-1) POS Antibody screen (gel) (test code = NEG 890-4) [facility] and [id number] 11:06:00 Test Item Value Reference Range Interpretation Comments ABO grouping (test code = 883-9) B Rh type (test code = 70617-0) POS Antibody screen (gel) (test code = NEG 890-4) [facility] and [id number] 11:06:00 Test Item Value Reference Range Interpretation Comments ABO grouping (test code = 883-9) B Rh type (test code = 02237-3) POS Antibody screen (gel) (test code = NEG 890-4) [facility] and [id number] 11:06:00 Test Item Value Reference Range Interpretation Comments ABO grouping (test code = 883-9) B Rh type (test code = 03124-5) POS Antibody screen (gel) (test code = NEG 890-4) [facility] and klkuod2765-88-28 11:06:00 Test Item Value Reference Range Interpretation Comments ABO grouping (test code = 883-9) B Rh type (test code = 65536-4) POS Antibody screen (gel) (test code = NEG 890-4) [facility] and [id number] 11:06:00 Test Item Value Reference Range Interpretation Comments ABO grouping (test code = 883-9) B Rh type (test code = 26498-7) POS Antibody screen (gel) (test code = NEG 890-4) [facility]) [facility] [Presence] in Respiratory specimen by EMANUEL with probe bmaxwtmkz2339-04-01 19:37:44 Test Item Value Reference Range Interpretation Comments SARS-CoV-2 (COVID-19) RNA Not detected Not-Detected [Presence] in Respiratory specimen by EMANUEL with probe detection (test code = 36103-4) 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 (test code = 99106-3) Whether the patient has symptoms related to condition of interest (test code = 68571-7) Patient was hospitalized because of this condition (test code = 41095-1) Whether the patient was admitted to intensive care unit (ICU) for condition of interest (test code = 49027-4) Whether patient resides in a congregate care setting (test code = 87806-0) [facility]2021-12-24 20:18:46 Test Item Value Reference Range Interpretation Comments Tissue culture No growth Specimen isolate (test after 3 days. InformationSp ecimen code = 67882-9) Source: [facility] Site: Thigh: in fected right thigh wou [facility] eqvdtwv1871-68-22 20:18:46 Test Item Value Reference Range Interpretation Comments Tissue culture No growth Specimen isolate (test after 3 days. InformationSp ecimen code = 34863-5) Source: [facility] Site: Thigh: in fected right thigh wou [facility] jsgxsts5577-49-93 20:18:46 Test Item Value Reference Range Interpretation Comments Tissue culture No growth Specimen isolate (test after 3 days. InformationSp ecimen code = 42206-2) [facility]: in fected right thigh wou [facility] zhmlnlz3024-72-31 20:18:46 Test Item Value Reference Range Interpretation Comments Tissue culture No growth Specimen isolate (test after 3 days. InformationSp ecimen code = 54267-7) Source: [facility] Site: Thigh: in fected right thigh wou [facility] yscohko7467-71-20 20:18:46 Test Item Value Reference Range Interpretation Comments Tissue culture No growth Specimen isolate (test after 3 days. InformationSp ecimen code = 16393-1) Source: [facility] Site: Thigh: in fected right thigh wou [facility] dqmkmas0569-34-95 20:18:46 Test Item Value Reference Range Interpretation Comments Tissue culture No growth Specimen isolate (test after 3 days. InformationSp ecimen code = 39427-1) Source: [facility] Site: Thigh: in fected right thigh wou [facility] bccbjjz2678-85-36 20:18:46 Test Item Value Reference Range Interpretation Comments Tissue culture No growth Specimen isolate (test after 3 days. InformationSp ecimen code = 00357-4) Source: [facility] Site: Thigh: in fected right thigh wou [facility] hjrwlof6855-56-25 20:18:46 Test Item Value Reference Range Interpretation Comments Tissue culture No growth Specimen isolate (test after 3 days. InformationSp ecimen code = 17997-9) Source: [facility] Site: Thigh: in fected right thigh wou [facility] sxpxzgu6102-57-47 20:18:46 Test Item Value Reference Range Interpretation Comments Tissue culture No growth Specimen isolate (test after 3 days. InformationSp ecimen code = 12119-7) Source: [facility] Site: Thigh: in fected right thigh wou [facility] kkmsrox7979-64-85 20:18:46 Test Item Value Reference Range Interpretation Comments Tissue culture No growth Specimen isolate (test after 3 days. InformationSp ecimen code = 09423-1) Source: [facility] Site: Thigh: in fected right thigh wou [facility] [id number] 20:18:46 Test Item Value Reference Range Interpretation Comments Tissue culture No growth Specimen isolate (test after 3 days. InformationSp ecimen code = 33750-1) Source: [facility] Site: Thigh: in fected [facility] ylnhc1318-21-46 20:24:42 Test Item Value Reference Range Interpretation Comments AFB stain No acid fast Specimen (test code = bacilli (AFB) [facility]) seen. Source: [place] [facility] Site: [facility]: [facility] wfrsv0124-15-22 20:24:42 Test Item Value Reference Range Interpretation Comments AFB stain No acid fast Specimen (test code = bacilli (AFB) InformationSpe cimen 676-7) seen. Source: [place] [facility] Site: Thigh: [facility]ect[facility] kezqd1811-84-11 20:24:42 Test Item Value Reference Range Interpretation Comments AFB stain No acid fast Specimen (test code = bacilli (AFB) InformationSpe cimen 676-7) seen. Source: [place] [facility] Site: Thigh: [facility]ect[facility] hlspt3441-85-07 20:24:42 Test Item Value Reference Range Interpretation Comments AFB stain No acid fast Specimen (test code = bacilli (AFB) InformationSpe cimen 676-7) seen. Source: [place] [facility] Site: Thigh: [facility]ected [facility] koebb8573-17-62 20:24:42 Test Item Value Reference Range Interpretation Comments AFB stain No acid fast Specimen (test code = bacilli (AFB) InformationSpe cimen 676-7) seen. Source: [place] [facility] Site: Thigh: [facility]ect[facility] esrgg3570-96-58 20:24:42 Test Item Value Reference Range Interpretation Comments AFB stain No acid fast Specimen (test code = bacilli (AFB) InformationSpe cimen 676-7) seen. Source: [place] [facility] Site: Thigh: [facility]ect[facility] qnznz1955-59-53 20:24:42 Test Item Value Reference Range Interpretation Comments AFB stain No acid fast Specimen (test code = bacilli (AFB) InformationSpe cimen 676-7) seen. Source: [place] [facility] Site: Thigh: [facility]ect[facility] [id number] 20:24:42 Test Item Value Reference Range Interpretation Comments AFB stain No acid fast Specimen (test code = bacilli (AFB) InformationSpe cimen 676-7) seen. Source: [place] [facility] Site: Thigh: [facility] llbpp6547-86-05 20:24:42 Test Item Value Reference Range Interpretation Comments AFB stain No acid fast Specimen (test code = bacilli (AFB) InformationSpe cimen 676-7) seen. Source: [place] [facility] Site: Thigh: [facility] dsuhy0668-41-83 20:24:42 Test Item Value Reference Range Interpretation Comments AFB stain No acid fast Specimen (test code = bacilli (AFB) InformationSpe cimen 676-7) seen. Source: [place] [facility] Site: Thigh: [facility]ected [facility] [id number] 20:24:42 Test Item Value Reference Range Interpretation Comments AFB stain No acid fast Specimen (test code = bacilli (AFB) InformationSpe cimen 676-7) seen. Source: [place] [facility] Site: Thigh: in fected wound right [facility] ioqyehc6337-77-96 09:49:57 Test Item Value Reference Range Interpretation Comments Urine culture No growth Specimen isolate (test after 24 InformationSpe cimen code = 87448-4) hours Source: [place] [facility] Site: [facility] mhyditt2664-01-10 09:49:57 Test Item Value Reference Range Interpretation Comments Urine culture No growth Specimen isolate (test after 24 InformationSpe cimen code = 86158-8) hours Source: [facility] Site: [facility] yogyfsw7614-71-98 09:49:57 Test Item Value Reference Range Interpretation Comments Urine culture No growth Specimen isolate (test after 24 InformationSpe cimen code = 99562-0) hours Source: [facility] Site: [facility] svptlpe8608-15-07 09:49:57 Test Item Value Reference Range Interpretation Comments Urine culture No growth Specimen isolate (test after 24 InformationSpe cimen code = 79293-0) hours Source: [facility] Site: [facility] oxpdwli6444-59-32 09:49:57 Test Item Value Reference Range Interpretation Comments Urine culture No growth Specimen isolate (test after 24 InformationSpe cimen code = 14648-7) hours Source: [facility] Site: [facility]2021-12-20 09:49:57 Test Item Value Reference Range Interpretation Comments Urine culture No growth Specimen isolate (test after 24 InformationSpe cimen code = 92820-5) hours Source: [facility] Site: [facility]2021-12-20 09:49:57 Test Item Value Reference Range Interpretation Comments Urine culture No growth Specimen isolate (test after 24 InformationSpe cimen code = 71306-5) hours Source: [facility] Site: [facility]2021-12-20 09:49:57 Test Item Value Reference Range Interpretation Comments Urine culture No growth Specimen isolate (test after 24 InformationSpe cimen code = 19626-1) hours Source: [facility] Site: [facility]2021-12-20 09:49:57 Test Item Value Reference Range Interpretation Comments Urine culture No growth Specimen isolate (test after 24 InformationSpe cimen code = 37821-6) hours Source: [facility] Site: [facility]2021-12-20 09:49:57 Test Item Value Reference Range Interpretation Comments Urine culture No growth Specimen isolate (test after 24 InformationSpe cimen code = 80471-5) hours Source: [facility] Site: [facility]2021-12-20 09:49:57 Test Item Value Reference Range Interpretation Comments Urine culture No growth Specimen isolate (test after 24 InformationSpe cimen code = 99120-8) hours Source: [facility] Site: [facility] and tvuiciiigouo9665-65-15 12:52:00 Test Item Value Reference Range Interpretation Comments ABO grouping (test code = 883-9) B Rh type (test code = 98994-5) POS [facility] and ieydfxkgbolq9186-90-74 12:52:00 Test Item Value Reference Range Interpretation Comments ABO grouping (test code = 883-9) B Rh type (test code = 14175-3) POS [facility] and brajknbpauhe6070-91-72 12:52:00 Test Item Value Reference Range Interpretation Comments ABO grouping (test code = 883-9) B Rh type (test code = 25074-1) [facility] sbfeiluhbzil6400-61-81 12:52:00 Test Item Value Reference Range Interpretation Comments ABO grouping (test code = 883-9) B Rh type (test code = 44535-5) [facility] svikafkqssuv0770-93-67 12:52:00 Test Item Value Reference Range Interpretation Comments ABO grouping (test code = 883-9) B Rh type (test code = 04982-0) POS [facility] and Rh oyndahvukcoh6410-22-18 12:52:00 Test Item Value Reference Range Interpretation Comments ABO grouping (test code = 883-9) B Rh type (test code = 53955-8) POS [facility] qsnozdmxngea4004-69-22 12:52:00 Test Item Value Reference Range Interpretation Comments ABO grouping (test code = 883-9) B Rh type (test code = 75491-3) [facility] mdevtlfilrat7960-50-95 12:52:00 Test Item Value Reference Range Interpretation Comments ABO grouping (test code = 883-9) B Rh type (test code = 35702-0) POS [facility] nblghxpcdlao3573-57-10 12:52:00 Test Item Value Reference Range Interpretation Comments ABO grouping (test code = 883-9) B Rh type (test code = 25663-3) [facility] bjpcmnusbzkt3165-55-51 12:52:00 Test Item Value Reference Range Interpretation Comments ABO grouping (test code = 883-9) B Rh type (test code = 30860-3) POS [facility] zcjflquoomug5020-50-77 12:52:00 Test Item Value Reference Range Interpretation Comments ABO grouping (test code = 883-9) B Rh type (test code = 50979-4) [facility] [Presence] in Respiratory specimen by EMANUEL with probe cebrdshgh4876-92-29 03:04:32 Test Item Value Reference Range Interpretation Comments SARS-CoV-2 (COVID-19) RNA Not detected Not-Detected [Presence] in Respiratory specimen by EMANUEL with probe detection (test code = 30094-4) 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 (test code = 00458-0) Whether the patient has symptoms related to condition of interest (test code = 73350-8) Patient was hospitalized because of this condition (test code = 98035-9) Whether the patient was admitted to intensive care unit (ICU) for condition of interest (test code = 43170-1) Whether patient resides in a congregate care setting (test code = 53468-2) [facility] Tgycb1341-37-03 22:22:00 Test Item Value Reference Range Interpretation Comments Product name (test code Red Blood Cells -1, = 25) Leukored Unit number (test code = [id number]) Product code (test code C0108T23 = 3092) Dispense status (test Transfused code = 24) Blood expiration date (test code = 302) Blood type code (test code = 308) Blood type (test code = B POSITIVE 1314) Compatibility (test code Compatible = 6400) [facility] Eweda3798-67-77 22:22:00 Test Item Value Reference Range Interpretation Comments Product name (test code Red Blood Cells -1, = 25) Leukored Unit number (test code = [id number]) Product code (test code T1579E65 = 3092) Dispense status (test Transfused code = 24) Blood expiration date (test code = 302) Blood type code (test code = 308) Blood type (test code = B POSITIVE 1314) Compatibility (test code Compatible = 6400) [facility], 1 Pxodf5182-18-39 22:22:00 Test Item Value Reference Range Interpretation Comments Product name (test code Red Blood Cells -1, = 25) Leukored Unit number (test code = [id number]) Product code (test code X5805K46 = 3092) Dispense status (test Transfused code = 24) Blood expiration date (test code = 302) Blood type code (test code = 308) Blood type (test code = B POSITIVE 1314) Compatibility (test code Compatible = 6400) [facility] Nztkh4848-21-42 22:22:00 Test Item Value Reference Range Interpretation Comments Product name (test code Red Blood Cells -1, = 25) Leukored Unit number (test code = [id number]) Product code (test code G2578E13 = 3092) Dispense status (test Transfused code = 24) Blood expiration date (test code = 302) Blood type code (test code = 308) Blood type (test code = B POSITIVE 1314) Compatibility (test code Compatible = 6400) [facility], 1 Nfrzx6388-11-06 22:22:00 Test Item Value Reference Range Interpretation Comments Product name (test code Red Blood Cells -1, = 25) Leukored Unit number (test code = [id number]) Product code (test code S9740N21 = 3092) Dispense status (test Transfused code = 24) Blood expiration date (test code = 302) Blood type code (test code = 308) Blood type (test code = B POSITIVE 1314) Compatibility (test code Compatible = 6400) [facility], 1 Wdsgy5360-76-70 22:22:00 Test Item Value Reference Range Interpretation Comments Product name (test code Red Blood Cells -1, = 25) Leukored Unit number (test code = [id number] 9887230) Product code (test code A4931E02 = 3092) Dispense status (test Transfused code = 24) Blood expiration date (test code = 302) Blood type code (test code = 308) Blood type (test code = B POSITIVE 1314) Compatibility (test code Compatible = 6400) [facility], 1 Ztctc6375-02-68 22:22:00 Test Item Value Reference Range Interpretation Comments Product name (test code Red Blood Cells -1, = 25) Leukored Unit number (test code = [id number] 1220603) Product code (test code J0103J10 = 3092) Dispense status (test Transfused code = 24) Blood expiration date (test code = 302) Blood type code (test code = 308) Blood type (test code = B POSITIVE 1314) Compatibility (test code Compatible = 6400) [facility], 1 Bkweh1043-14-59 22:22:00 Test Item Value Reference Range Interpretation Comments Product name (test code Red Blood Cells -1, = 25) Leukored Unit number (test code = [id number]) Product code (test code Y1896C33 = 3092) Dispense status (test Transfused code = 24) Blood expiration date (test code = 302) Blood type code (test code = 308) Blood type (test code = B POSITIVE 1314) Compatibility (test code Compatible = 6400) [facility] RBC, 1 Uhqyb8012-98-71 22:22:00 Test Item Value Reference Range Interpretation Comments Product name (test code Red Blood Cells -1, = 25) Leukored Unit number (test code = [id number]) Product code (test code R7498S20 = 3092) Dispense status (test Transfused code = 24) Blood expiration date (test code = 302) Blood type code (test code = 308) Blood type (test code = B POSITIVE 1314) Compatibility (test code Compatible = 6400) [facility] RBC, 1 Gyosf1857-88-57 22:22:00 Test Item Value Reference Range Interpretation Comments Product name (test code Red Blood Cells -1, = 25) Leukored Unit number (test code = [id number]) Product code (test code E2804M85 = 3092) Dispense status (test Transfused code = 24) Blood expiration date (test code = 302) Blood type code (test code = 308) Blood type (test code = B POSITIVE 1314) Compatibility (test code Compatible = 6400) [facility] pathology drxagls1558-43-72 20:10:46 Test Item Value Reference Range Interpretation Comments Case number (test code = [id number]) Surgical pathology See link below for report (test code = PDF Lab Report 2255) Result status (test code This is Final Report = [id number]) for [id number] [facility] pathology umrhsmw0034-64-04 20:10:46 Test Item Value Reference Range Interpretation Comments Case number (test code = [id number]) Surgical pathology See link below for report (test code = PDF Lab Report 2255) Result status (test code This is Final Report = 5683753) for [id number] [facility] pathology lpmhoqe1815-42-85 20:10:46 Test Item Value Reference Range Interpretation Comments Case number (test code = [id number]) Surgical pathology See link below for report (test code = PDF Lab Report 2255) Result status (test code This is Final Report = 4676061) for [address] pathology pgsrkza3087-84-64 20:10:46 Test Item Value Reference Range Interpretation Comments Case number (test code = [id number]) Surgical pathology See link below for report (test code = PDF Lab Report 2255) Result status (test code This is Final Report = [id number]) for [address] pathology eimwxlf1007-45-74 20:10:46 Test Item Value Reference Range Interpretation Comments Case number (test code = [id number]) Surgical pathology See link below for report (test code = PDF Lab Report 2255) Result status (test code This is Final Report = [id number]) for [address] pathology eycnmce0517-70-63 20:10:46 Test Item Value Reference Range Interpretation Comments Case number (test code = [id number]) Surgical pathology See link below for report (test code = PDF Lab Report 2255) Result status (test code This is Final Report = [id number]) for [address] pathology cyfpcdg8276-46-46 20:10:46 Test Item Value Reference Range Interpretation Comments Case number (test code = [id number]) Surgical pathology See link below for report (test code = PDF Lab Report 2255) Result status (test code This is Final Report = [id number]) for [address] pathology yjjodno4568-46-43 20:10:46 Test Item Value Reference Range Interpretation Comments Case number (test code = [id number]) Surgical pathology See link below for report (test code = PDF Lab Report 2255) Result status (test code This is Final Report = 2660154) for [address] pathology sxrcqtb4315-36-91 20:10:46 Test Item Value Reference Range Interpretation Comments Case number (test code = [id number]) Surgical pathology See link below for report (test code = PDF Lab Report 2255) Result status (test code This is Final Report = [id number]) for [id number] [facility] [id number] 20:10:46 Test Item Value Reference Range Interpretation Comments Case number (test code = [id number]) Surgical pathology See link below for report (test code = PDF Lab Report 2255) Result status (test code This is Final Report = [id number]) for [id number] [facility]heres[facility], 1 Wlduz6852-76-69 15:35:00 Test Item Value Reference Range Interpretation Comments Product name (test code Platele tAph LR, Path = 25) Red cont3 Unit number (test code = [id number] 5901749) Product code (test code Y3354D71 = 3092) Dispense status (test Transfused code = 24) Blood expiration date (test code = 302) Blood type code (test code = 308) Blood type (test code = O POSITIVE 1314) Compatibility (test code Not required = 6400) [facility], 1 Mcfyj9182-84-43 15:35:00 Test Item Value Reference Range Interpretation Comments Product name (test code Platele tAph LR, Path = 25) Red cont3 Unit number (test code = [id number] 1323973) Product code (test code F5863Q68 = 3092) Dispense status (test Transfused code = 24) Blood expiration date (test code = 302) Blood type code (test code = 308) Blood type (test code = O POSITIVE 1314) Compatibility (test code Not required = 6400) [facility], 1 Ijewi6880-53-39 15:35:00 Test Item Value Reference Range Interpretation Comments Product name (test code Platele tAph LR, Path = 25) Red cont3 Unit number (test code = [id number] 0122905) Product code (test code E7864D33 = 3092) Dispense status (test Transfused code = 24) Blood expiration date (test code = 302) Blood type code (test code = 308) Blood type (test code = O POSITIVE 1314) Compatibility (test code Not required = 6400) [facility], 1 Ygsos7765-18-50 15:35:00 Test Item Value Reference Range Interpretation Comments Product name (test code Platerick tAph LR, Path = 25) Red cont3 Unit number (test code = [id number] 8292827) Product code (test code T6078D10 = 3092) Dispense status (test Transfused code = 24) Blood expiration date (test code = 302) Blood type code (test code = 308) Blood type (test code = O POSITIVE 1314) Compatibility (test code Not required = 6400) [facility], 1 Rwfqn6799-06-76 15:35:00 Test Item Value Reference Range Interpretation Comments Product name (test code Platerick tAph LR, Path = 25) Red cont3 Unit number (test code = [id number] 2733229) Product code (test code W4238A19 = 3092) Dispense status (test Transfused code = 24) Blood expiration date (test code = 302) Blood type code (test code = 308) Blood type (test code = O POSITIVE 1314) Compatibility (test code Not required = 6400) [facility], 1 Swkoh4105-57-19 15:35:00 Test Item Value Reference Range Interpretation Comments Product name (test code Platerick tAph LR, Path = 25) Red cont3 Unit number (test code = [id number] 5096304) Product code (test code D1385K99 = 3092) Dispense status (test Transfused code = 24) Blood expiration date (test code = 302) Blood type code (test code = 308) Blood type (test code = O POSITIVE 1314) Compatibility (test code Not required = 6400) [facility], 1 Ylasb5184-00-21 15:35:00 Test Item Value Reference Range Interpretation Comments Product name (test code Platele tAph LR, Path = 25) Red cont3 Unit number (test code = [id number] 8267261) Product code (test code C6487V74 = 3092) Dispense status (test Transfused code = 24) Blood expiration date (test code = 302) Blood type code (test code = 308) Blood type (test code = O POSITIVE 1314) Compatibility (test code Not required = 6400) [facility] 1 [id number] 15:35:00 Test Item Value Reference Range Interpretation Comments Product name (test code Bogdan Fraire LR, Path = 25) Red cont3 Unit number (test code = [id number]) Product code (test code I0625N73 = 3092) Dispense status (test Transfused code = 24) Blood expiration date (test code = 302) Blood type code (test code = 308) Blood type (test code = O POSITIVE 1314) Compatibility (test code Not required = 6400) [facility] [id number] 15:35:00 Test Item Value Reference Range Interpretation Comments Product name (test code Bogdan GARDINER, Path = 25) Red cont3 Unit number (test code = [id number]) Product code (test code Q7728O16 = 3092) Dispense status (test Transfused code = 24) Blood expiration date (test code = 302) Blood type code (test code = 308) Blood type (test code = O POSITIVE 1314) Compatibility (test code Not required = 6400) [facility] 1 [id number] 15:35:00 Test Item Value Reference Range Interpretation Comments Product name (test code Bogdan GARDINER, Path = 25) Red cont3 Unit number (test code = [id number]) Product code (test code Q2299H47 = 3092) Dispense status (test Transfused code = 24) Blood expiration date (test code = 302) Blood type code (test code = 308) Blood type (test code = O POSITIVE 1314) Compatibility (test code Not required = 6400) [facility] [id number] 12:13:24 Test Item Value Reference Range Interpretation Comments Activated clotting time See_Comment H Oper ator Name: (test code = 5298) Bryn Morales ID: [id number] [Automated mess age] The system [employer] generated this result transmitted ref erence range: 96 - 152 sec. The reference r leo was not used to interpret this result as normal/abnor mal. Lab Interpretation (test Abnormal code = 18569-7) [facility] [id number] 12:13:24 Test Item Value Reference Range Interpretation Comments Activated clotting time See_Comment H Oper ator Name: (test code = 5298) Bryn Sj eneaDevice ID: [id number] [Automated mess age] The system [employer] generated this result transmitted ref erence range: 96 - 152 sec. The reference r leo was not used to interpret this result as normal/abnor mal. Lab Interpretation (test Abnormal code = 56637-5) [facility] [id number] 12:13:24 Test Item Value Reference Range Interpretation Comments Activated clotting time See_Comment H Oper ator Name: (test code = 5298) Bryn R eneaDevice ID: [id number] [Automated mess age] The system [employer] generated this result transmitted ref erence range: 96 - 152 sec. The reference r leo was not used to interpret this result as normal/abnor mal. Lab Interpretation (test Abnormal code = 96094-3) [facility] [id number] 12:13:24 Test Item Value Reference Range Interpretation Comments Activated clotting time See_Comment H Oper ator Name: (test code = 5298) Bryn R eneaDevice ID: [id number] [Automated mess age] The system [employer] generated this result transmitted ref erence range: 96 - 152 sec. The reference r leo was not used to interpret this result as normal/abnor mal. Lab Interpretation (test Abnormal code = 80629-8) [facility] [id number] 12:13:24 Test Item Value Reference Range Interpretation Comments Activated clotting time See_Comment H Oper ator Name: (test code = 5298) Bryn R eneaDevice ID: [id number] [Automated mess age] The system [employer] generated this result transmitted ref erence range: 96 - 152 sec. The reference r leo was not used to interpret this result as normal/abnor mal. Lab Interpretation (test Abnormal code = 45694-5) [facility] [id number] 12:13:24 Test Item Value Reference Range Interpretation Comments Activated clotting time See_Comment H Oper ator Name: (test code = 5298) Bryn R eneaDevice ID: [id number] [Automated mess age] The system [employer] generated this result transmitted ref erence range: 96 - 152 sec. The reference r leo was not used to interpret this result as normal/abnor mal. Lab Interpretation (test Abnormal code = 30175-4) [facility] [id number] 12:13:24 Test Item Value Reference Range Interpretation Comments Activated clotting time See_Comment H Oper ator Name: (test code = 5298) Estelarikkikb Sj thorntoneaDevice ID: [id number] [Automated mess age] The system [employer] generated this result transmitted ref erence range: 96 - 152 sec. The reference r leo was not used to interpret this result as normal/abnor mal. Lab Interpretation (test Abnormal code = 04019-0) [facility] [id number] 12:13:24 Test Item Value Reference Range Interpretation Comments Activated clotting time See_Comment H Oper ator Name: (test code = 5298) Estelarikkielymeet thorntoneaDevice ID: [id number] [Automated mess age] The system [employer] generated this result transmitted ref erence range: 96 - 152 sec. The reference r leo was not used to interpret this result as normal/abnor mal. Lab Interpretation (test Abnormal code = 37106-0) [facility] [id number] 12:13:24 Test Item Value Reference Range Interpretation Comments Activated clotting time See_Comment H Oper ator Name: (test code = 5298) Estelarikkielymeet thorntoneaDevice ID: [id number] [Automated mess age] The system [employer] generated this result transmitted ref erence range: 96 - 152 sec. The reference r leo was not used to interpret this result as normal/abnor mal. Lab Interpretation (test Abnormal code = 42033-0) [facility] [id number] 12:13:24 Test Item Value Reference Range Interpretation Comments Activated clotting time See_Comment H Oper ator Name: (test code = 5298) Bryn Sj eneaDevice ID: [id number] [Automated mess age] The system [email or web address] generated this result transmitted ref erence range: 96 - 152 sec. The reference r leo was not used to interpret this result as normal/abnor mal. Lab Interpretation (test Abnormal code = 43417-7) [facility]2021-11-29 14:37:48 Test Item Value Reference Range Interpretation Comments POC sodium (test code = 138 mmol/L 705-266 3185-0) POC potassium (test 5.5 mmol/L 3.5-5 H code = 6298-4) POC glucose (test code 295 mg/dL 65-99 H = 2339-0) POC creatinine (test 5.3 mg/dl 0.5-0.9 H Operato r Name: Pugne code = 69406-5) AileenDevice ID: [id number] POC hemoglobin (test 18.4 g/dL 12-16 H code = 718-7) POC hematocrit (test 54 % 37-47 H code = 4544-3) Lab Interpretation Abnormal (test code = 49890-0) [facility]2021-11-29 14:37:48 Test Item Value Reference Range Interpretation Comments POC sodium (test code = 138 mmol/L 886-795 8190-0) POC potassium (test 5.5 mmol/L 3.5-5 H code = 6298-4) POC glucose (test code 295 mg/dL 65-99 H = 2339-0) POC creatinine (test 5.3 mg/dl 0.5-0.9 H Operato r Name: Pugne code = 50320-1) AileenDevice ID: [id number] POC hemoglobin (test 18.4 g/dL 12-16 H code = 718-7) POC hematocrit (test 54 % 37-47 H code = 4544-3) Lab Interpretation Abnormal (test code = 19887-5) [facility]2021-11-29 14:37:48 Test Item Value Reference Range Interpretation Comments POC sodium (test code = 138 mmol/L 526-137 4837-0) POC potassium (test 5.5 mmol/L 3.5-5 H code = 6298-4) POC glucose (test code 295 mg/dL 65-99 H = 2339-0) POC creatinine (test 5.3 mg/dl 0.5-0.9 H Operato r Name: Pugne code = 38707-6) AileenDevice ID: [id number] POC hemoglobin (test 18.4 g/dL 12-16 H code = 718-7) POC hematocrit (test 54 % 37-47 H code = 4544-3) Lab Interpretation Abnormal (test code = 94976-6) [facility]2021-11-29 14:37:48 Test Item Value Reference Range Interpretation Comments POC sodium (test code = 138 mmol/L 783-827 7476-0) POC potassium (test 5.5 mmol/L 3.5-5 H code = 6298-4) POC glucose (test code 295 mg/dL 65-99 H = 2339-0) POC creatinine (test 5.3 mg/dl 0.5-0.9 H Operato r Name: Carminagne code = 11317-4) Viridiana ID: [id number] POC hemoglobin (test 18.4 g/dL 12-16 H code = 718-7) POC hematocrit (test 54 % 37-47 H code = 4544-3) Lab Interpretation Abnormal (test code = 91444-1) [facility]2021-11-29 14:37:48 Test Item Value Reference Range Interpretation Comments POC sodium (test code = 138 mmol/L 412-540 5500-0) POC potassium (test 5.5 mmol/L 3.5-5 H code = 6298-4) POC glucose (test code 295 mg/dL 65-99 H = 2339-0) POC creatinine (test 5.3 mg/dl 0.5-0.9 H Operato r Name: Johannae code = 89623-9) Lisavice ID: [id number] POC hemoglobin (test 18.4 g/dL 12-16 H code = 718-7) POC hematocrit (test 54 % 37-47 H code = 4544-3) Lab Interpretation Abnormal (test code = 38550-4) [facility]2021-11-29 14:37:48 Test Item Value Reference Range Interpretation Comments POC sodium (test code = 138 mmol/L 531-458 4898-0) POC potassium (test 5.5 mmol/L 3.5-5.0 H code = 6298-4) POC glucose (test code 295 mg/dL 65-99 H = 2339-0) POC creatinine (test 5.3 mg/dl 0.5-0.9 H Operato r Name: Johannae code = 43182-5) AileenDevice ID: [id number] POC hemoglobin (test 18.4 g/dL 12.0-16.0 H code = 718-7) POC hematocrit (test 54 % 37-47 H code = 4544-3) Lab Interpretation Abnormal (test code = 33245-4) [facility]2021-11-29 14:37:48 Test Item Value Reference Range Interpretation Comments POC sodium (test code = 138 mmol/L 381-075 4077-0) POC potassium (test 5.5 mmol/L 3.5-5.0 H code = 6298-4) POC glucose (test code 295 mg/dL 65-99 H = 2339-0) POC creatinine (test 5.3 mg/dl 0.5-0.9 H Operato r Name: Pat code = 45852-2) AileenDevice ID: [id number] POC hemoglobin (test 18.4 g/dL 12.0-16.0 H code = 718-7) POC hematocrit (test 54 % 37-47 H code = 4544-3) Lab Interpretation Abnormal (test code = 53036-8) [facility]2021-11-29 14:37:48 Test Item Value Reference Range Interpretation Comments POC sodium (test code = 138 mmol/L 331-354 8205-0) POC potassium (test 5.5 mmol/L 3.5-5 H code = 6298-4) POC glucose (test code 295 mg/dL 65-99 H = 2339-0) POC creatinine (test 5.3 mg/dl 0.5-0.9 H Operato r Name: Carminae code = 23114-7) AileenDevice ID: [id number] POC hemoglobin (test 18.4 g/dL 12-16 H code = 718-7) POC hematocrit (test 54 % 37-47 H code = 4544-3) Lab Interpretation Abnormal (test code = 67704-1) [facility]2021-11-29 14:37:48 Test Item Value Reference Range Interpretation Comments POC sodium (test code = 138 mmol/L 120-612 1822-0) POC potassium (test 5.5 mmol/L 3.5-5 H code = 6298-4) POC glucose (test code 295 mg/dL 65-99 H = 2339-0) POC creatinine (test 5.3 mg/dl 0.5-0.9 H Operato r Name: Pat code = 14869-4) AileenDevice ID: [id number] POC hemoglobin (test 18.4 g/dL 12-16 H code = 718-7) POC hematocrit (test 54 % 37-47 H code = 4544-3) Lab Interpretation Abnormal (test code = 07403-2) [facility] [id number] 14:37:48 Test Item Value Reference Range Interpretation Comments POC sodium (test code = 138 mmol/L 038-951 5786-0) POC potassium (test 5.5 mmol/L 3.5-5 H code = 6298-4) POC glucose (test code 295 mg/dL 65-99 H = 2339-0) POC creatinine (test 5.3 mg/dl 0.5-0.9 H Operato r Name: Pat code = 06233-5) AileenDeviccarlos alberto ID: [id number] POC hemoglobin (test 18.4 g/dL 12-16 H code = 718-7) POC hematocrit (test 54 % 37-47 H code = 4544-3) Lab Interpretation Abnormal (test code = 71766-4) [facility] [Presence] in Respiratory specimen by EMANUEL with probe [id number] 07:53:49 Test Item Value Reference Range Interpretation Comments SARS-CoV-2 (COVID-19) RNA Not detected Not-Detected [Presence] in Respiratory specimen by EMANUEL with probe detection (test code = 95772-9) 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 (test code = 86752-6) Whether the patient has symptoms related to condition of interest (test code = 29103-7) Patient was hospitalized because of this condition (test code = 12177-3) Whether the patient was admitted to intensive care unit (ICU) for condition of interest (test code = 01742-4) Whether patient resides in a congregate care setting (test code = 75953-8) [facility] [id number] 08:17:00 Test Item Value Reference Range Interpretation Comments Glucose Lvl (test code = Glucose Lvl) 94 70-99 [place] 787441-08-11 08:17:00 Test Item Value Reference Range Interpretation Comments BUN (test code = BUN) 27 7-22 [place] 787441-08-11 08:17:00 Test Item Value Reference Range Interpretation Comments Creatinine Lvl (test code = Creatinine 4.95 0.50-1.40 Lvl) [place] 787441-08-11 08:17:00 Test Item Value Reference Range Interpretation Comments Sodium Lvl (test code = Sodium Lvl) 136 135-145 [place] 787441-08-11 08:17:00 Test Item Value Reference Range Interpretation Comments Potassium Lvl (test code = Potassium 3.9 3.5-5.1 Lvl) [place] 787441-08-11 08:17:00 Test Item Value Reference Range Interpretation Comments Chloride Lvl (test code = Chloride Lvl) 103 95-109 [place] 787441-08-11 08:17:00 Test Item Value Reference Range Interpretation Comments CO2 (test code = CO2) 30 24-32 [place] 787441-08-11 08:17:00 Test Item Value Reference Range Interpretation Comments AGAP (test code = AGAP) 6.9 10.0-20.0 [place] 787441-08-11 08:17:00 Test Item Value Reference Range Interpretation Comments Calcium Lvl (test code = Calcium Lvl) 8.5 8.5-10.5 [place] 787441-08-11 08:17:00 Test Item Value Reference Range Interpretation Comments eGFR (test code = eGFR) 10 [place] 787441-08-11 08:17:00 Test Item Value Reference Range Interpretation Comments Phosphorus (test code = Phosphorus) 3.0 2.5-4.5 [place] 787441-08-11 08:17:00 Test Item Value Reference Range Interpretation Comments Magnesium Lvl (test code = Magnesium 2.4 1.8-2.4 Lvl) [place] 290421-08-11 08:17:00 Test Item Value Reference Range Interpretation Comments WBC (test code = WBC) 2.3 3.7-10.4 [place] 290421-08-11 08:17:00 Test Item Value Reference Range Interpretation Comments RBC (test code = RBC) 2.65 4.20-5.40 [place] 290421-08-11 08:17:00 Test Item Value Reference Range Interpretation Comments Hgb (test code = Hgb) 7.9 12.0-16.0 [place] 290421-08-11 08:17:00 Test Item Value Reference Range Interpretation Comments Hct (test code = Hct) 24.0 36.0-48.0 [facility]:00 Test Item Value Reference Range Interpretation Comments MCV (test code = MCV) 90.6 80.0-98.0 [place] 290421-08-11 08:17:00 Test Item Value Reference Range Interpretation Comments MCH (test code = MCH) 29.7 pg 27.0-31.0 [facility]OerovbzXJYECMMAXB2074-13-08 08:17:00 Test Item Value Reference Range Interpretation Comments MCHC (test code = MCHC) 32.7 32.0-36.0 [facility] CenterSxydtkpITPIMYTUAL7248-02-32 08:17:00 Test Item Value Reference Range Interpretation Comments RDW (test code = RDW) 19.1 11.5-14.5 [facility] CenterBrlwvdxIESQZSJKTV4294-64-61 08:17:00 Test Item Value Reference Range Interpretation Comments Platelet (test code = Platelet) 71 133-450 [facility] CenterVzcjdokRAJJRVXONN4269-65-92 08:17:00 Test Item Value Reference Range Interpretation Comments MPV (test code = MPV) 9.9 7.4-10.4 [place] 290421-08-11 08:17:00 Test Item Value Reference Range Interpretation Comments Segs (test code = Segs) 56.1 45.0-75.0 [place] 290421-08-11 08:17:00 Test Item Value Reference Range Interpretation Comments Lymphocytes (test code = Lymphocytes) 28.9 20.0-40.0 [place] 290421-08-11 08:17:00 Test Item Value Reference Range Interpretation Comments Monocytes (test code = Monocytes) 8.1 2.0-12.0 [place] 290421-08-11 08:17:00 Test Item Value Reference Range Interpretation Comments Eosinophils (test code = 5.9 See_Comment [A utomated message] The Eosinophils) system which ge nerated this result tra nsmitted reference range : <=4.0. The reference r leo was not used to int erpret this result as normal/abnormal . [place] 290421-08-11 08:17:00 Test Item Value Reference Range Interpretation Comments Basophils (test code = 1.0 See_Comment [Aut omated message] The Basophils) system which ge nerated this result tra nsmitted reference range : <=1.0. The reference r leo was not used to int erpret this result as normal/abnormal . [facility] CenterZwdyrlsHZYOGQQCPT5602-53-53 08:17:00 Test Item Value Reference Range Interpretation Comments Neutrophils # (test code = Neutrophils 1.3 1.5-8.1 #) [place] 290421-08-11 08:17:00 Test Item Value Reference Range Interpretation Comments Lymphocytes # (test code = Lymphocytes 0.7 1.0-5.5 #) [place] 290421-08-11 08:17:00 Test Item Value Reference Range Interpretation Comments Monocytes # (test code 0.2 See_Comment [Aut omated message] The = Monocytes #) system which generated this result tra nsmitted reference range : <=0.8. The reference r leo was not used to int erpret this result as normal/abnormal . [place] 290421-08-11 08:17:00 Test Item Value Reference Range Interpretation Comments Eosinophils # (test code 0.1 See_Comment [A utomated message] The = Eosinophils #) system whic h generated this result tra nsmitted reference range : <=0.5. The reference r leo was not used to int erpret this result as normal/abnormal . [facility] [id number] 09:30:00 Test Item Value Reference Range Interpretation Comments Glucose Lvl (test code = Glucose Lvl) 61 70-99 [facility] [id number] 09:30:00 Test Item Value Reference Range Interpretation Comments BUN (test code = BUN) 13 7-22 [facility] KOKSQ2114-89-00 09:30:00 Test Item Value Reference Range Interpretation Comments Creatinine Lvl (test code = Creatinine 3.71 0.50-1.40 Lvl) [place] 787441-08-10 09:30:00 Test Item Value Reference Range Interpretation Comments Sodium Lvl (test code = Sodium Lvl) 136 135-145 [place] 787441-08-10 09:30:00 Test Item Value Reference Range Interpretation Comments Potassium Lvl (test code = Potassium 4.3 3.5-5.1 Lvl) [place] 787441-08-10 09:30:00 Test Item Value Reference Range Interpretation Comments Chloride Lvl (test code = Chloride Lvl) 103 95-109 [place] 787441-08-10 09:30:00 Test Item Value Reference Range Interpretation Comments CO2 (test code = CO2) 27 24-32 [place] 787441-08-10 09:30:00 Test Item Value Reference Range Interpretation Comments Calcium Lvl (test code = Calcium Lvl) 7.9 8.5-10.5 [place] 787441-08-10 09:30:00 Test Item Value Reference Range Interpretation Comments AGAP (test code = AGAP) 10.3 10.0-20.0 [place] 06[address]-08-10 09:30:00 Test Item Value Reference Range Interpretation Comments eGFR (test code = eGFR) 15 [place] 787441-08-10 09:30:00 Test Item Value Reference Range Interpretation Comments Magnesium Lvl (test code = Magnesium 2.3 1.8-2.4 Lvl) [place] 787441-08-10 09:30:00 Test Item Value Reference Range Interpretation Comments Phosphorus (test code = Phosphorus) 3.1 2.5-4.5 [place] 290421-08-10 09:30:00 Test Item Value Reference Range Interpretation Comments Segs (test code = Segs) 61.5 45.0-75.0 [place] [address]-08-10 09:30:00 Test Item Value Reference Range Interpretation Comments Lymphocytes (test code = Lymphocytes) 24.6 20.0-40.0 [place] [address]-08-10 09:30:00 Test Item Value Reference Range Interpretation Comments Monocytes (test code = Monocytes) 7.4 2.0-12.0 [place] [address]-08-10 09:30:00 Test Item Value Reference Range Interpretation Comments Eosinophils (test code = 5.5 See_Comment [A utomated message] The Eosinophils) system which ge nerated this result tra nsmitted reference range : <=4.0. The reference r leo was not used to int erpret this result as normal/abnormal . [place] 290421-08-10 09:30:00 Test Item Value Reference Range Interpretation Comments Basophils (test code = 1.0 See_Comment [Aut omated message] The Basophils) system which ge nerated this result tra nsmitted reference range : <=1.0. The reference r leo was not used to int erpret this result as normal/abnormal . [place] 290421-08-10 09:30:00 Test Item Value Reference Range Interpretation Comments Neutrophils # (test code = Neutrophils 1.6 1.5-8.1 #) [place] 290421-08-10 09:30:00 Test Item Value Reference Range Interpretation Comments Lymphocytes # (test code = Lymphocytes 0.6 1.0-5.5 #) [place] 290421-08-10 09:30:00 Test Item Value Reference Range Interpretation Comments Monocytes # (test code 0.2 See_Comment [Aut omated message] The = Monocytes #) system which generated this result tra nsmitted reference range : <=0.8. The reference r leo was not used to int erpret this result as normal/abnormal . [place] 290421-08-10 09:30:00 Test Item Value Reference Range Interpretation Comments Eosinophils # (test code 0.1 See_Comment [A utomated message] The = Eosinophils #) system [facility] generated this result tra nsmitted reference range : <=0.5. The reference r leo was not used to int erpret this result as normal/abnormal . [place] 290421-08-10 09:30:00 Test Item Value Reference Range Interpretation [...] studies, if clinically indicated, are recommended. CPT: 93304 [facility] CenterAfrnqilIUCOQBTYEL5701-89-64 09:30:00 Test Item Value Reference Range Interpretation Comments WBC (test code = WBC) 2.5 3.7-10.4 [place] 290421-08-10 09:30:00 Test Item Value Reference Range Interpretation Comments RBC (test code = RBC) 2.68 4.20-5.40 [place] 290421-08-10 09:30:00 Test Item Value Reference Range Interpretation Comments Hgb (test code = Hgb) 8.2 12.0-16.0 [place] [address]-08-10 09:30:00 Test Item Value Reference Range Interpretation Comments Hct (test code = Hct) 24.3 36.0-48.0 [place] 290421-08-10 09:30:00 Test Item Value Reference Range Interpretation Comments MCV (test code = MCV) 90.9 80.0-98.0 [facility] CenterHgyaqtaDEJLWHFCPG9594-66-67 09:30:00 Test Item Value Reference Range Interpretation Comments MCH (test code = MCH) 30.5 pg 27.0-31.0 [facility] CenterCkcnloiWDIZNZWIGG2698-16-11 09:30:00 Test Item Value Reference Range Interpretation Comments MCHC (test code = MCHC) 33.6 32.0-36.0 [facility] CenterBlxwjnuWVGOGTWZZD8327-62-39 09:30:00 Test Item Value Reference Range Interpretation Comments RDW (test code = RDW) 19.4 11.5-14.5 [place] 290421-08-10 09:30:00 Test Item Value Reference Range Interpretation Comments Platelet (test code = Platelet) 70 133-450 [facility] CenterUucrmgySNIFWJPVEI2317-83-36 09:30:00 Test Item Value Reference Range Interpretation Comments MPV (test code = MPV) 10.7 7.4-10.4 [facility] 05:10:00 Test Item Value Reference Range Interpretation Comments Glucose Lvl (test code = Glucose Lvl) 69 70-99 [facility]20[facility]-09 05:10:00 Test Item Value Reference Range Interpretation Comments BUN (test code = BUN) 29 7-22 [place] 787441-08-09 05:10:00 Test Item Value Reference Range Interpretation Comments Creatinine Lvl (test code = Creatinine 5.14 0.50-1.40 Lvl) [place] 787441-08-09 05:10:00 Test Item Value Reference Range Interpretation Comments Sodium Lvl (test code = Sodium Lvl) 134 135-145 [place] 787441-08-09 05:10:00 Test Item Value Reference Range Interpretation Comments Potassium Lvl (test code = Potassium 5.1 3.5-5.1 Lvl) [place] 787441-08-09 05:10:00 Test Item Value Reference Range Interpretation Comments Chloride Lvl (test code = Chloride Lvl) 98 95-109 [place] 787441-08-09 05:10:00 Test Item Value Reference Range Interpretation Comments CO2 (test code = CO2) 29 24-32 [place] 787441-08-09 05:10:00 Test Item Value Reference Range Interpretation Comments Calcium Lvl (test code = Calcium Lvl) 7.6 8.5-10.5 [facility] [facility] 05:10:00 Test Item Value Reference Range Interpretation Comments AGAP (test code = AGAP) 12.1 10.0-20.0 [place] 787441-08-09 05:10:00 Test Item Value Reference Range Interpretation Comments eGFR (test code = eGFR) 10 [place] 787441-08-09 05:10:00 Test Item Value Reference Range Interpretation Comments Magnesium Lvl (test code = Magnesium 2.3 1.8-2.4 Lvl) [place] 787441-08-09 05:10:00 Test Item Value Reference Range Interpretation Comments Phosphorus (test code = Phosphorus) 5.0 2.5-4.5 [place] 290421-08-09 05:10:00 Test Item Value Reference Range Interpretation Comments WBC (test code = WBC) 2.7 3.7-10.4 [place] 290421-08-09 05:10:00 Test Item Value Reference Range Interpretation Comments RBC (test code = RBC) 2.80 4.20-5.40 [place] 290421-08-09 05:10:00 Test Item Value Reference Range Interpretation Comments Hgb (test code = Hgb) 8.5 12.0-16.0 [place] 290421-08-09 05:10:00 Test Item Value Reference Range Interpretation Comments Hct (test code = Hct) 25.7 36.0-48.0 [place] 290421-08-09 05:10:00 Test Item Value Reference Range Interpretation Comments MCV (test code = MCV) 91.7 80.0-98.0 [place] 290421-08-09 05:10:00 Test Item Value Reference Range Interpretation Comments MCH (test code = MCH) 30.4 pg 27.0-31.0 [facility]MumuqrhKHMLPHVCQP4632-75-59 05:10:00 Test Item Value Reference Range Interpretation Comments MCHC (test code = MCHC) 33.1 32.0-36.0 [place] 290421-08-09 05:10:00 Test Item Value Reference Range Interpretation Comments RDW (test code = RDW) 19.2 11.5-14.5 [place] 290421-08-09 05:10:00 Test Item Value Reference Range Interpretation Comments Platelet (test code = Platelet) 72 133-450 [facility] CenterWwlyhwlOSTADKFFCT8191-53-85 05:10:00 Test Item Value Reference Range Interpretation Comments MPV (test code = MPV) 9.9 7.4-10.4 [place] 290421-08-09 05:10:00 Test Item Value Reference Range Interpretation Comments Segs (test code = Segs) 72.6 45.0-75.0 [facility] CenterDalhbieUIGAGACVBO0589-52-86 05:10:00 Test Item Value Reference Range Interpretation Comments Lymphocytes (test code = Lymphocytes) 15.9 20.0-40.0 [place] 290421-08-09 05:10:00 Test Item Value Reference Range Interpretation Comments Monocytes (test code = Monocytes) 7.3 2.0-12.0 [place] 290421-08-09 05:10:00 Test Item Value Reference Range Interpretation Comments Eosinophils (test code = 3.4 See_Comment [A utomated message] The Eosinophils) system which ge nerated this result tra nsmitted reference range : <=4.0. The reference r leo was not used to int erpret this result as normal/abnormal . [facility] CenterYzvojiiCAPQURFMYZ2094-77-78 05:10:00 Test Item Value Reference Range Interpretation Comments Basophils (test code = 0.8 See_Comment [Aut omated message] The Basophils) system which ge nerated this result tra nsmitted reference range : <=1.0. The reference r elo was not used to int erpret this result as normal/abnormal . [facility] CenterVdfzevlHPQXRHGAPE8491-58-07 05:10:00 Test Item Value Reference Range Interpretation Comments Neutrophils # (test code = Neutrophils 1.9 1.5-8.1 #) [facility]IzyoizqVOJNQAJAYB2557-56-74 05:10:00 Test Item Value Reference Range Interpretation Comments Lymphocytes # (test code = Lymphocytes 0.4 1.0-5.5 #) [facility] CenterXhyxjzfPBISRNVWYA5541-23-24 05:10:00 Test Item Value Reference Range Interpretation Comments Monocytes # (test code 0.2 See_Comment [Aut omated message] The = Monocytes #) system which generated this result tra nsmitted reference range : <=0.8. The reference r leo was not used to int erpret this result as normal/abnormal . [facility] CenterDvdpfcpESFJYEICWM9576-60-03 05:10:00 Test Item Value Reference Range Interpretation Comments Eosinophils # (test code 0.1 See_Comment [A utomated message] The = Eosinophils #) system whic h generated this result tra nsmitted reference range : <=0.5. The reference r leo was not used to int erpret this result as normal/abnormal . [facility]PAR[facility] DAJXZBP6420-86-26 05:10:00 Test Item Value Reference Range Interpretation Comments Ca Ion WB (test code = Ca Ion WB) 1.10 1.05-1.25 [facility] HospitalPARATHYROID NXRNQJP6801-83-08 05:10:00 Test Item Value Reference Range Interpretation Comments Ca Norm WB (test code = Ca Norm WB) 1.06 1.05-1.25 [facility] HospitalMOLECULAR PERDLGPZRL8858-88-58 18:36:00 Test Item Value Reference Range Interpretation Comments C difficile DNA (test Negative (01/26/21 1:36 code = C difficile DNA) PM) [facility] OZQPGXC0388-08-53 07:33:00 Test Item Value Reference Range Interpretation Comments Ca Ion WB (test code = Ca Ion WB) 1.12 1.05-1.25 [facility]RO[facility] [id number] 07:33:00 Test Item Value Reference Range Interpretation Comments Ca Norm WB (test code = Ca Norm WB) 1.07 1.05-1.25 [place] 787441-08-08 07:30:00 Test Item Value Reference Range Interpretation Comments Glucose Lvl (test code = Glucose Lvl) 65 70-99 [place] 787441-08-08 07:30:00 Test Item Value Reference Range Interpretation Comments BUN (test code = BUN) 21 7-22 [place] 787441-08-08 07:30:00 Test Item Value Reference Range Interpretation Comments Creatinine Lvl (test code = Creatinine 4.18 0.50-1.40 Lvl) [place] 787441-08-08 07:30:00 Test Item Value Reference Range Interpretation Comments Sodium Lvl (test code = Sodium Lvl) 136 135-145 [place] 787441-08-08 07:30:00 Test Item Value Reference Range Interpretation Comments Potassium Lvl (test code = Potassium 4.5 3.5-5.1 Lvl) [place] 787441-08-08 07:30:00 Test Item Value Reference Range Interpretation Comments Chloride Lvl (test code = Chloride Lvl) 99 95-109 [place] 787441-08-08 07:30:00 Test Item Value Reference Range Interpretation Comments CO2 (test code = CO2) 31 24-32 [place] 787441-08-08 07:30:00 Test Item Value Reference Range Interpretation Comments AGAP (test code = AGAP) 10.5 10.0-20.0 [place] 787441-08-08 07:30:00 Test Item Value Reference Range Interpretation Comments Calcium Lvl (test code = Calcium Lvl) 7.9 8.5-10.5 [place] 787441-08-08 07:30:00 Test Item Value Reference Range Interpretation Comments eGFR (test code = eGFR) 13 [place] 787441-08-08 07:30:00 Test Item Value Reference Range Interpretation Comments Magnesium Lvl (test code = Magnesium 2.2 1.8-2.4 Lvl[facility] 07:30:00 Test Item Value Reference Range Interpretation Comments Phosphorus (test code = Phosphorus) 4.4 2.5-4.5 [facility] CenterVsyidkuDSQACJRRAZ4572-39-90 07:30:00 Test Item Value Reference Range Interpretation Comments WBC (test code = WBC) 2.3 3.7-10.4 [facility] CenterWtjkogkJLSOKUJYGL4188-40-80 07:30:00 Test Item Value Reference Range Interpretation Comments RBC (test code = RBC) 2.88 4.20-5.40 [facility] CenterGuzperzXZPFVZXOCM4060-43-91 07:30:00 Test Item Value Reference Range Interpretation Comments Hgb (test code = Hgb) 8.6 12.0-16.0 [place] 290421-08-08 07:30:00 Test Item Value Reference Range Interpretation Comments Hct (test code = Hct) 26.6 36.0-48.0 [facility] CenterGtneuffIMIXLGCDJT4015-98-77 07:30:00 Test Item Value Reference Range Interpretation Comments MCV (test code = MCV) 92.2 80.0-98.0 [facility] CenterKofeoxnOTCYOBAJPM2147-73-61 07:30:00 Test Item Value Reference Range Interpretation Comments MCH (test code = MCH) 29.8 pg 27.0-31.0 [facility] CenterMlhimnvYJVNNEKUDA6261-10-41 07:30:00 Test Item Value Reference Range Interpretation Comments MCHC (test code = MCHC) 32.4 32.0-36.0 [facility] CenterFveiiooVCWSAWKWHS7754-14-22 07:30:00 Test Item Value Reference Range Interpretation Comments RDW (test code = RDW) 19.7 11.5-14.5 [place] 290421-08-08 07:30:00 Test Item Value Reference Range Interpretation Comments Platelet (test code = Platelet) 83 133-450 [facility] CenterLvukhvfDOLHXVNUSO8358-09-65 07:30:00 Test Item Value Reference Range Interpretation Comments MPV (test code = MPV) 10.2 7.4-10.4 [place] 290421-08-08 07:30:00 Test Item Value Reference Range Interpretation Comments Segs (test code = Segs) 64.0 45.0-75.0 [place] 290421-08-08 07:30:00 Test Item Value Reference Range Interpretation Comments Lymphocytes (test code = Lymphocytes) 24.1 20.0-40.0 [place] 290421-08-08 07:30:00 Test Item Value Reference Range Interpretation Comments Monocytes (test code = Monocytes) 7.0 2.0-12.0 [place] 290421-08-08 07:30:00 Test Item Value Reference Range Interpretation Comments Eosinophils (test code = 3.7 See_Comment [A utomated message] The Eosinophils) system which ge nerated this result tra nsmitted reference range : <=4.0. The reference r leo was not used to int erpret this result as normal/abnormal . [place] 290421-08-08 07:30:00 Test Item Value Reference Range Interpretation Comments Basophils (test code = 1.2 See_Comment [Aut omated message] The Basophils) system which ge nerated this result tra nsmitted reference range : <=1.0. The reference r leo was not used to int erpret this result as normal/abnormal . [facility] CenterIrnzbujYWGDDEWJKW6554-57-25 07:30:00 Test Item Value Reference Range Interpretation Comments Neutrophils # (test code = Neutrophils 1.5 1.5-8.1 #) [facility] CenterAhrjslnPJNZQTCWDM2120-44-01 07:30:00 Test Item Value Reference Range Interpretation Comments Lymphocytes # (test code = Lymphocytes 0.6 1.0-5.5 #) [facility] CenterSdyfoiaSULSAXKCMG7007-36-02 07:30:00 Test Item Value Reference Range Interpretation Comments Monocytes # (test code 0.2 See_Comment [Aut omated message] The = Monocytes #) system which generated this result tra nsmitted reference range : <=0.8. The reference r leo was not used to int erpret this result as normal/abnormal . [place] 290421-08-08 07:30:00 Test Item Value Reference Range Interpretation Comments Eosinophils # (test code 0.1 See_Comment [A utomated message] The = Eosinophils #) system whic h generated this result tra nsmitted reference range : <=0.5. The reference r leo was not used to int erpret this result as normal/abnormal . [place] 787441-08-07 09:32:00 Test Item Value Reference Range Interpretation Comments Glucose Lvl (test code = Glucose Lvl) 59 70-99 [place] 787441-08-07 09:32:00 Test Item Value Reference Range Interpretation Comments BUN (test code = BUN) 11 7-22 [place] 787441-08-07 09:32:00 Test Item Value Reference Range Interpretation Comments Creatinine Lvl (test code = Creatinine 2.75 0.50-1.40 Lvl) [place] 787441-08-07 09:32:00 Test Item Value Reference Range Interpretation Comments Sodium Lvl (test code = Sodium Lvl) 138 135-145 [place] 787441-08-07 09:32:00 Test Item Value Reference Range Interpretation Comments Potassium Lvl (test code = Potassium 4.1 3.5-5.1 Lvl) [place] 787441-08-07 09:32:00 Test Item Value Reference Range Interpretation Comments Chloride Lvl (test code = Chloride Lvl) 104 95-109 [place] 787441-08-07 09:32:00 Test Item Value Reference Range Interpretation Comments CO2 (test code = CO2) 29 24-32 [place] 787441-08-07 09:32:00 Test Item Value Reference Range Interpretation Comments Calcium Lvl (test code = Calcium Lvl) 8.3 8.5-10.5 [place] 787441-08-07 09:32:00 Test Item Value Reference Range Interpretation Comments AGAP (test code = AGAP) 9.1 10.0-20.0 [place] 787441-08-07 09:32:00 Test Item Value Reference Range Interpretation Comments eGFR (test code = eGFR) 21 [place] 787441-08-07 09:32:00 Test Item Value Reference Range Interpretation Comments Magnesium Lvl (test code = Magnesium 2.2 1.8-2.4 Lvl) [place] 787441-08-07 09:32:00 Test Item Value Reference Range Interpretation Comments Phosphorus (test code = Phosphorus) 3.9 2.5-4.5 [facility] HospitalZjkmtgqHQNLOYAFCT9241-14-15 09:32:00 Test Item Value Reference Range Interpretation Comments WBC (test code = WBC) 2.3 3.7-10.4 [facility] HospitalLvdqkquTVOHRMYIWG7184-94-64 09:32:00 Test Item Value Reference Range Interpretation Comments RBC (test code = RBC) 2.78 4.20-5.40 [facility] CenterOqnsnwrYNTXIMRBSE5458-64-39 09:32:00 Test Item Value Reference Range Interpretation Comments Hgb (test code = Hgb) 8.4 12.0-16.0 [facility] HospitalYskovbaGOUNWWGVOY6357-92-17 09:32:00 Test Item Value Reference Range Interpretation Comments Hct (test code = Hct) 25.2 36.0-48.0 [facility] HospitalMzyemvqFPCTPIXRAA9172-62-92 09:32:00 Test Item Value Reference Range Interpretation Comments MCV (test code = MCV) 90.5 80.0-98.0 [facility] HospitalNbkgariLYFJUOUHLE9054-75-00 09:32:00 Test Item Value Reference Range Interpretation Comments MCH (test code = MCH) 30.4 pg 27.0-31.0 [facility] HospitalOhqeghfLNIUFABJOU0437-02-27 09:32:00 Test Item Value Reference Range Interpretation Comments MCHC (test code = MCHC) 33.5 32.0-36.0 [facility] CenterFsbtarbIFTZGPUEHO7595-99-36 09:32:00 Test Item Value Reference Range Interpretation Comments RDW (test code = RDW) 19.0 11.5-14.5 [facility] HospitalFifbxyoIMZUXKKHLF0065-56-55 09:32:00 Test Item Value Reference Range Interpretation Comments Platelet (test code = Platelet) 87 133-450 [facility] CenterEmqvxpoSVLRWRJMYS3458-06-09 09:32:00 Test Item Value Reference Range Interpretation Comments MPV (test code = MPV) 10.0 7.4-10.4 [facility] HospitalFID[facility] LITGJPH9592-88-42 05:33:00 Test Item Value Reference Range Interpretation Comments ABO/Rh (test code = ABO/Rh) B POS [facility] [employer] BTAEZXE0994-13-70 05:33:00 Test Item Value Reference Range Interpretation Comments Antibody Scrn (test Negative (01/24/21 12:33 code = Antibody Scrn) AM) [facility] HospitalZudfkvyEIJKXTAMZA7010-29-71 05:33:00 Test Item Value Reference Range Interpretation Comments Segs (test code = Segs) 60.2 45.0-75.0 [facility] CenterYnigjlaHIZUUOIZZV9414-82-24 05:33:00 Test Item Value Reference Range Interpretation Comments Lymphocytes (test code = Lymphocytes) 28.6 20.0-40.0 [place] 290421-08-06 05:33:00 Test Item Value Reference Range Interpretation Comments Monocytes (test code = Monocytes) 5.8 2.0-12.0 [facility] CenterRkrzahqHTDZEQUVTW3166-36-21 05:33:00 Test Item Value Reference Range Interpretation Comments Eosinophils (test code = 4.2 See_Comment [A utomated message] The Eosinophils) system which ge nerated this result tra nsmitted reference range : <=4.0. The reference r leo was not used to int erpret this result as normal/abnormal . [place] 290421-08-06 05:33:00 Test Item Value Reference Range Interpretation Comments Basophils (test code = 1.2 See_Comment [Aut omated message] The Basophils) system which ge nerated this result tra nsmitted reference range : <=1.0. The reference r leo was not used to int erpret this result as normal/abnormal . [facility] CenterMuzngdpIGSFJPLOMP3385-77-89 05:33:00 Test Item Value Reference Range Interpretation Comments Neutrophils # (test code = Neutrophils 2.2 1.5-8.1 #) [facility] CenterYqonfdjMBGHDVDFNM1422-78-59 05:33:00 Test Item Value Reference Range Interpretation Comments Lymphocytes # (test code = Lymphocytes 1.1 1.0-5.5 #) [facility] CenterEkbdodzURIPAIFBGT0156-43-44 05:33:00 Test Item Value Reference Range Interpretation Comments Monocytes # (test code 0.2 See_Comment [Aut omated message] The = Monocytes #) system which generated this result tra nsmitted reference range : <=0.8. The reference r leo was not used to int erpret this result as normal/abnormal . [place] 290421-08-06 05:33:00 Test Item Value Reference Range Interpretation Comments Eosinophils # (test code 0.2 See_Comment [A utomated message] The = Eosinophils #) system whic h generated this result tra nsmitted reference range : <=0.5. The reference r leo was not used to int erpret this result as normal/abnormal . [facility] CenterIqukhuyMGTPQFEJEP6427-86-92 05:53:00 Test Item Value Reference Range Interpretation Comments PT (test code = PT) 14.4 s 12.0-14.7 [facility] CenterQwnnhbqMVHAFXYQPC9441-07-30 05:53:00 Test Item Value Reference Range Interpretation Comments INR (test code = INR) 1.13 1 0.85-1.17 [facility] CenterUlviyfsRXOCJJRUQS6338-46-84 05:53:00 Test Item Value Reference Range Interpretation Comments Fibrinogen Lvl (test code = Fibrinogen 319 230-510 Lvl) [facility] CenterGnywfsgNXFPMMENRT0393-50-49 05:53:00 Test Item Value Reference Range Interpretation Comments Thrombin Time (test code = Thrombin 15.9 s 15.0-21.2 Time) [facility] CenterZiinygsWURVNHFMBQ1968-05-20 05:53:00 Test Item Value Reference Range Interpretation Comments PTT (test code = PTT) 47.0 s 22.9-35.8 [facility] CenterWidbbfsIIGXTBLIMK2584-41-33 05:53:00 Test Item Value Reference Range Interpretation Comments D-Dimer (test code = D-Dimer) 0.91 [facility] CenterDpdnlicFIQNONYSGC6766-31-93 05:53:00 Test Item Value Reference Range Interpretation Comments Basophils # (test code 0.1 See_Comment [Aut omated message] The = Basophils #) system which generated this result tra nsmitted reference range : <=0.2. The reference r leo was not used to int erpret this result as normal/abnormal . [facility] HospitalPARATHYROID OLRLDGM2975-22-00 05:53:00 Test Item Value Reference Range Interpretation Comments Ca Ion WB (test code = Ca Ion WB) 1.24 1.05-1.25 [facility] HospitalPARATHYROID WGJDULM7958-13-79 05:53:00 Test Item Value Reference Range Interpretation Comments Ca Norm WB (test code = Ca Norm WB) 1.25 1.05-1.25 [facility] [employer] [id number] 10:09:00 Test Item Value Reference Range Interpretation Comments ALT (test code = ALT) 49 See_Comment [Auto mated message] The system which ge nerated this result transmit rohit reference range : <=65. The reference range was not used to interpr et this result as reji l/abnormal. [facility] HospitalACS Cl[facility] CKHTX9424-50-93 10:09:00 Test Item Value Reference Range Interpretation Comments Albumin Lvl (test code = Albumin Lvl) 2.8 3.5-5.0 [facility] [employer] [id number] 10:09:00 Test Item Value Reference Range Interpretation Comments Alk Phos (test code = Alk Phos) 41 39-136 [facility] [id number] 10:09:00 Test Item Value Reference Range Interpretation Comments Bili Direct (test code 0.2 See_Comment [Aut omated message] The = Bili Direct) system which generated this result tra nsmitted reference range : <=0.3. The reference r leo was not used to int erpret this result as reji l/abnormal. [facility] [employer] [id number] 10:09:00 Test Item Value Reference Range Interpretation Comments Bili Total (test code = Bili Total) 0.6 0.2-1.3 [facility] [id number] 10:09:00 Test Item Value Reference Range Interpretation Comments Bili Indirect (test 0.4 See_Comment [Automa rohit message] The code = Bili Indirect) system which generated this result tra nsmitted reference range : <=1.0. The reference r leo was not used to int erpret this result as normal/abnormal . [facility] [employer] [id number] 10:09:00 Test Item Value Reference Range Interpretation Comments Total Protein (test code = Total 5.6 6.4-8.4 Protein) [facility] [id number] 10:09:00 Test Item Value Reference Range Interpretation Comments AST (test code = AST) 33 See_Comment [Auto mated message] The system which ge nerated this result transmit rohit reference range : <=37. The reference range was not used to interpr et this result as reji l/abnormal. [facility] [employer] PZCTM6531-04-16 10:09:00 Test Item Value Reference Range Interpretation Comments Globulin (test code = Globulin) 2.8 2.7-4.2 [facility] [employer] [id number] 10:09:00 Test Item Value Reference Range Interpretation Comments A/G Ratio (test code = A/G Ratio) 1.0 1 0.7-1.6 [facility] [employer] [id number] 10:09:00 Test Item Value Reference Range Interpretation Comments Amylase Lvl (test code = Amylase Lvl) 19 25-115 [facility] [id number] 10:09:00 Test Item Value Reference Range Interpretation Comments Lipase Lvl (test code = Lipase Lvl) no gt 73-393 [facility] HealthUwxrznsLNTIJOWGTC7037-88-46 10:09:00 Test Item Value Reference Range Interpretation Comments PTT (test code = PTT) 41.4 s 22.9-35.8 [facility] HealthTqzxaplQUNMZRMUBJ2079-64-77 10:09:00 Test Item Value Reference Range Interpretation Comments PT (test code = PT) 15.4 s 12.0-14.7 [facility] CenterHaqelfkCEUSGIDCHU6061-87-02 10:09:00 Test Item Value Reference Range Interpretation Comments INR (test code = INR) 1.24 1 0.85-1.17 [facility] HealthZmivgdtLODVZAFXQB0598-80-16 10:09:00 Test Item Value Reference Range Interpretation Comments Fibrinogen Lvl (test code = Fibrinogen 312 230-510 Lvl) [facility] HealthLavacpfUKSPJHTNIN2641-14-18 10:09:00 Test Item Value Reference Range Interpretation Comments Thrombin Time (test code = Thrombin 16.6 s 15.0-21.2 Time) [facility] CenterYjmdhlvAZPABLLUTJ4734-18-33 10:09:00 Test Item Value Reference Range Interpretation Comments D-Dimer (test code = D-Dimer) 4.91 [facility] HealthKeablsmMKLMKRZYNT0089-12-35 10:09:00 Test Item Value Reference Range Interpretation Comments Basophils # (test code 0.1 See_Comment [Aut omated message] The = Basophils #) system which generated this result tra nsmitted reference range : <=0.2. The reference r leo was not used to int erpret this result as normal/abnormal . [facility] YFSNQCFIC0430-31-75 10:09:00 Test Item Value Reference Range Interpretation Comments Hgb A1C (test code = Hgb A1C) 5.6 [facility] HospitalLibrelato Implementos Rodoviários USWQG2270-15-20 09:07:00 Test Item Value Reference Range Interpretation Comments Amylase Lvl (test code = Amylase Lvl) 4 25-115 [facility] HealthKoreugwROPSHJRNKB5921-76-28 09:07:00 Test Item Value Reference Range Interpretation Comments Thrombin Time (test code = Thrombin 18.0 s 15.0-21.2 Time) [facility] HealthSofchopPMODQSYZIX7949-27-08 09:07:00 Test Item Value Reference Range Interpretation Comments PT (test code = PT) 24.6 s 12.0-14.7 [facility] HealthBvjotyrNTELMZSAIL0483-88-72 09:07:00 Test Item Value Reference Range Interpretation Comments INR (test code = INR) 2.31 1 0.85-1.17 [facility] HealthIoexiwaGUFNAFRMZZ9618-38-80 09:07:00 Test Item Value Reference Range Interpretation Comments PTT (test code = PTT) 57.5 s 22.9-35.8 [facility] HealthZuzkdcxIBWLPIRXAE7879-75-86 09:07:00 Test Item Value Reference Range Interpretation Comments Fibrinogen Lvl (test code = Fibrinogen 125 230-510 Lvl) [facility] HealthHumtbjsRNJRGZBKII4785-98-19 09:07:00 Test Item Value Reference Range Interpretation Comments D-Dimer (test code = D-Dimer) 2.28 [facility] HospitalFlared3D BANK [id number] 04:52:00 Test Item Value Reference Range Interpretation Comments RBC product (test code Product available = RBC product) (01/21/21 11:52 PM) [facility] HospitalON-S Segurança OnlineAC [id number] 00:38:00 Test Item Value Reference Range Interpretation Comments Troponin-I (test code no gt See_Comment [Auto mated message] The = Troponin-I) system which g enerated this result transmit rohit reference range : <=0.40. The reference r leo was not used to interpr et this result as reji l/abnormal. [facility] HospitalWatchup [id number] 17:47:00 Test Item Value Reference Range Interpretation Comments BNP (test code = BNP) 2324 [facility] HospitalEye-Pharma BFYDKHK9052-03-45 17:47:00 Test Item Value Reference Range Interpretation Comments Troponin-I (test code 0.02 See_Comment [Auto mated message] The = Troponin-I) system which g enerated this result transmit rohit reference range : <=0.40. The reference r leo was not used to interpr et this result as reji l/abnormal. [facility] HospitalHhfzmwnXRLYNFHLOM0402-84-21 17:47:00 Test Item Value Reference Range Interpretation Comments Hep Bs Ag (test code Negative *NA*(01/21/21 = Hep Bs Ag) 12:47 PM) [facility] HermannCHE[facility] [id number] 17:43:00 Test Item Value Reference Range Interpretation Comments B/C Ratio (test code = B/C Ratio) 5 1 6-25 [facility] [id number] 17:43:00 Test Item Value Reference Range Interpretation Comments ALT (test code = ALT) 66 See_Comment [Auto mated message] The system which ge nerated this result transmit rohit reference range : <=65. The reference range was not used to interpr et this result as reji l/abnormal. [facility] [id number] 17:43:00 Test Item Value Reference Range Interpretation Comments Albumin Lvl (test code = Albumin Lvl) 3.0 3.5-5.0 [facility] [id number] 17:43:00 Test Item Value Reference Range Interpretation Comments Alk Phos (test code = Alk Phos) 40 39-136 [facility] [id number] 17:43:00 Test Item Value Reference Range Interpretation Comments Bili Total (test code = Bili Total) 0.5 0.2-1.3 [facility] [id number] 17:43:00 Test Item Value Reference Range Interpretation Comments Total Protein (test code = Total 5.7 6.4-8.4 Protein) [facility] [id number] 17:43:00 Test Item Value Reference Range Interpretation Comments AST (test code = AST) 52 See_Comment [Auto mated message] The system which ge nerated this result transmit rohit reference range : <=37. The reference range was not used to interpr et this result as reji l/abnormal. [facility] [id number] 17:43:00 Test Item Value Reference Range Interpretation Comments Globulin (test code = Globulin) 2.7 2.7-4.2 [facility] [id number] 17:43:00 Test Item Value Reference Range Interpretation Comments A/G Ratio (test code = A/G Ratio) 1.1 1 0.7-1.6 [facility] [id number] 17:43:00 Test Item Value Reference Range Interpretation Comments Lactic Acid Lvl (test code = Lactic 1.1 0.5-2.2 Acid Lvl) [facility]ID[facility] [id number] 16:20:00 Test Item Value Reference Range Interpretation Comments ABO/Rh (test code = ABO/Rh) B POS [facility] [id number] 16:20:00 Test Item Value Reference Range Interpretation Comments Antibody Scrn (test Negative (01/21/21 11:20 code = Antibody Scrn) AM) [facility] [id number] 16:20:00 Test Item Value Reference Range Interpretation Comments Anisocyte (test code = 1+ *ABN*(01/21/21 Anisocyte) 11:20 AM) [facility]ann[facility] [id number] 15:35:00 Test Item Value Reference Range Interpretation Comments Lactase Lvl (test code = Lactase Lvl) 2.0 [facility] [id number] 15:35:00 Test Item Value Reference Range Interpretation Comments Sucrase Lvl (test code = Sucrase Lvl) 38.6 [facility] [id number] 15:35:00 Test Item Value Reference Range Interpretation Comments Maltase Lvl (test code = Maltase Lvl) 177.2 [facility] [id number] 15:35:00 Test Item Value Reference Range Interpretation Comments Palatinase Lvl (test code = Palatinase 13.8 Lvl) [facility] H[id number] 13:21:00 Test Item Value Reference Range Interpretation Comments Potassium WB (test code = Potassium WB) 5.1 3.5-5.1 [facility] Ho[id number] 13:21:00 Test Item Value Reference Range Interpretation Comments S Preg (test code = S Negative 8*NA*(01/21/21 Preg) 8:21 AM) [facility] H[id number] 11:19:00 Test Item Value Reference Range Interpretation Comments Coronavirus (COVID-19) Not Detected (01/21/21 EMANUEL (test code = 6:19 AM) Coronavirus (COVID-19) EMANUEL) [facility] [id number] 16:39:05 Test Item Value Reference Range Interpretation Comments Glucose POC (test 183 mg/dL 70-115 H If you con head up operator helper your code = Glucose POC) patient critically ill, the Merlin-Accu Check Infrom II meter should not be used for Glucose determination. Draw a venous Glucose and send to the main Lab for analysis. Urine [id number] 11:32:13 Test Item Value Reference Range Interpretation [...] Escherichia coli C Urine Added by GL_SJM_UA_CUL_INDPOC [id number] 07:52:10 Test Item Value Reference Range Interpretation Comments Glucose POC (test 160 mg/dL 70-115 H If you con head up operator helper your code = Glucose POC) patient critically ill, the Merlin-Accu Check Infrom II meter should not be used for Glucose determination. Draw a venous Glucose and send to the main Lab for analysis. POC [id number] 19:32:05 Test Item Value Reference Range Interpretation Comments Glucose POC (test 184 mg/dL 70-115 H If you con head up operator helper your code = Glucose POC) patient critically ill, the Merlin-Accu Check Infrom II meter should not be used for Glucose determination. Draw a venous Glucose and send to the main Lab for analysis. POC [id number] 17:16:35 Test Item Value Reference Range Interpretation Comments Glucose POC (test 281 mg/dL 70-115 H Notify RN or MDIf you code = Glucose POC) consider your patient critically ill, the Merlin-Accu Chec k Infrom II meter should not be used for Glucos e determination. Draw a venous Glucose and send to the main Lab for analysis. POC [id number] 12:00:38 Test Item Value Reference Range Interpretation Comments Glucose POC (test 138 mg/dL 70-115 H Notify RN or MDIf you code = Glucose POC) consider your patient critically ill, the Merlin-Accu Chec k Infrom II meter should not be used for Glucos e determination. Draw a venous Glucose and send to the main Lab for analysis. POC [id number] 07:41:32 Test Item Value Reference Range Interpretation Comments Glucose POC (test 206 mg/dL 70-115 H Notify RN or MDIf you code = Glucose POC) consider your patient critically ill, the Merlin-Accu Chec k Infrom II meter should not be used for Glucos e determination. Draw a venous Glucose and send to the main Lab for analysis. Urinalysis [id number] 21:07:21 Test Item Value Reference Range Interpretation Comments UA WBC (test code = UA WBC) TNTC 0-5 A UA RBC (test code = UA RBC) 6-10 0-5 A UA Bacteria (test code = UA Bacteria) Profuse A UA Squam Epithelial (test code = UA 6-10 A Squam Epithelial) Urinalysis with Culture, if [id number] 20:35:14 Test Item Value Reference Range Interpretation [...] Micro Indicated Not Indicated A Ind?) POC [id number] 19:06:34 Test Item Value Reference Range Interpretation Comments Glucose POC (test 207 mg/dL 70-115 H If you con head up operator helper your code = Glucose POC) patient critically ill, the Merlin-Accu Check Infrom II meter should not be used for Glucose determination. Draw a venous Glucose and send to the main Lab for analysis. POC [id number] 17:12:03 Test Item Value Reference Range Interpretation Comments Glucose POC (test 173 mg/dL 70-115 H Notify RN or MDIf you code = Glucose POC) consider your patient critically ill, the Merlin-Accu Chec k Infrom II meter should not be used for Glucos e determination. Draw a venous Glucose and send to the main Lab for analysis. POC [id number] 11:58:01 Test Item Value Reference Range Interpretation Comments Glucose POC (test 289 mg/dL 70-115 H Notify RN or MDIf you code = Glucose POC) consider your patient critically ill, the Merlin-Accu Chec k Infrom II meter should not be used for Glucos e determination. Draw a venous Glucose and send to the main Lab for analysis. POC [id number] 08:19:37 Test Item Value Reference Range Interpretation Comments Glucose POC (test 201 mg/dL 70-115 H Notify RN or MDIf you code = Glucose POC) consider your patient critically ill, the Merlin-Accu Chec k Infrom II meter should not be used for Glucos e determination. Draw a venous Glucose and send to the main Lab for analysis. POC [id number] 20:37:35 Test Item Value Reference Range Interpretation Comments Glucose POC (test 272 mg/dL 70-115 H If you con head up operator helper your code = Glucose POC) patient critically ill, the Merlin-Accu Check Infrom II meter should not be used for Glucose determination. Draw a venous Glucose and send to the main Lab for analysis. POC [id number] 17:23:05 Test Item Value Reference Range Interpretation Comments Glucose POC (test 229 mg/dL 70-115 H If you con head up operator helper your code = Glucose POC) patient critically ill, the Merlin-Accu Check Infrom II meter should not be used for Glucose determination. Draw a venous Glucose and send to the main Lab for analysis. POC [id number] 12:01:01 Test Item Value Reference Range Interpretation Comments Glucose POC (test 155 mg/dL 70-115 H If you con head up operator helper your code = Glucose POC) patient critically ill, the Merlin-Accu Check Infrom II meter should not be used for Glucose determination. Draw a venous Glucose and send to the main Lab for analysis. POC [id number] 08:07:32 Test Item Value Reference Range Interpretation Comments Glucose POC (test 248 mg/dL 70-115 H If you con head up operator helper your code = Glucose POC) patient critically ill, the Merlin-Accu Check Infrom II meter should not be used for Glucose determination. Draw a venous Glucose and send to the main Lab for analysis. IG [id number] 06:50:39 Test Item Value Reference Range Interpretation Comments IG (test code = IG) 0.7 % 0.0-5.0 IG Abs (test code = IG Abs) 0 x10 N Complete Blood Count with [id number] 06:50:38 Test Item Value Reference Range Interpretation [...] code = IPF) 0 % N Automated [id number] 06:50:38 Test Item Value Reference Range Interpretation Comments Neutro Auto (test code = Neutro 50.3 % 36.0-70.0 Auto) Lymph Auto (test code = Lymph Auto) 38.6 % 12.0-44.0 [place] Auto (test code = [place] Auto) 7.3 % 0.0-11.0 Eos, Auto (test code = Eos, Auto) 2.4 % 0.0-7.0 Basophil Auto (test code = Basophil 0.7 % 0.0-2.0 Auto) Neutro Absolute (test code = Neutro 3.0 x10 1.6-7.4 Absolute) Lymph Absolute (test code = Lymph 2.28 x10 .50-4.60 Absolute) [place] Absolute (test code = [place] .43 x10 .00-1.20 Absolute) Eos Absolute (test code = Eos 0.14 x10 0.00-0.74 Absolute) Baso Absolute (test code = Baso 0.04 x10 0.00-0.21 Absolute) Basic Metabolic [id number] 05:38:20 Test Item Value Reference Range Interpretation [...] = Lipemia) 0 mg/dL 8-11 Basic Metabolic [id number] 05:38:20 Test Item Value Reference Range Interpretation [...] = 0 mg/dL 8-11 Lipemia) Basic Metabolic [id number] 05:38:20 Test Item Value Reference Range Interpretation [...] code = 0 mg/dL 8-11 Lipemia) POC [id number] 20:28:33 Test Item Value Reference Range Interpretation Comments Glucose POC (test 169 mg/dL 70-115 H If you con head up operator helper your code = Glucose POC) patient critically ill, the Merlin-Accu Check Infrom II meter should not be used for Glucose determination. Draw a venous Glucose and send to the main Lab for analysis. POC [id number] 16:39:30 Test Item Value Reference Range Interpretation Comments Glucose POC (test 103 mg/dL 70-115 If you con head up operator helper your code = Glucose POC) patient critically ill, the Merlin-Accu Check Infrom II meter should not be used for Glucose determination. Draw a venous Glucose and send to the main Lab for analysis. RPR [id number] 12:08:56 Test Item Value Reference Range Interpretation Comments RPR Qual (test code = RPR Qual) Non-Reactive Non-Reactive Reactive Control (test code = Reactive Reactive Control) Weak Reactive Control (test Weak Reactive code = Weak Reactive Control) Non-Reactive Control (test code Non-Reactive = Non-Reactive Control) Lot # (test code = Lot #) [id number] N Expiration Dt (test code = 03-20-2021 N Expiration Dt) POC [id number] 11:52:31 Test Item Value Reference Range Interpretation Comments Glucose POC (test 250 mg/dL 70-115 H If you con head up operator helper your code = Glucose POC) patient critically ill, the Merlin-Accu Check Infrom II meter should not be used for Glucose determination. Draw a venous Glucose and send to the main Lab for analysis. POC [id number] 07:55:29 Test Item Value Reference Range Interpretation Comments Glucose POC (test 205 mg/dL 70-115 H If you con head up operator helper your code = Glucose POC) patient critically ill, the Merlin-Accu Check Infrom II meter should not be used for Glucose determination. Draw a venous Glucose and send to the main Lab for analysis. Lipid [id number] 05:46:04 Test Item Value Reference Range Interpretation [...] LDL/HDL Ratio=L DL Calc/HDL Chol Thyroid Stimulating [id number] 05:46:04 Test Item Value Reference Range Interpretation Comments TSH (test code = TSH) 3.274 mcIU/mL 0.550-4.780 Hemoglobin [id number] 05:41:08 Test Item Value Reference Range Interpretation Comments Hemoglobin A1c (test code 7.6 % 4.0-5.8 H Di abetic >=6.5 = Hemoglobin A1c) %Prediabet es 5.7-6.4 %Normal <5.7 % Hepatitis B Surface [id number] 21:19:36 Test Item Value Reference Range Interpretation Comments Hep Bs Ag (test code = Hep Bs Non-Reactive Non-Reactive Ag) Novel Coronavirus SARS-CoV-2, [id number] 11:16:16 Test Item Value Reference Range Interpretation [...] Emergency Use Authorization." Novel Coronavirus (COVID-19), EMANUEL [id number] 11:11:24TNPTest not sent and performed at [facility].Rapid was perfomed in Microbiology.Wrong covid test was ord ered.Urine DOA [id number] 00:17:49 Test Item Value Reference Range Interpretation [...] Propoxyphene Confirmation wi thin 7 days. Alcohol [id number] 00:17:29 Test Item Value Reference Range Interpretation Comments Ethanol Level 9.0 mg/dL N The pharmacolo gical (test code = response to blo od alcohol Ethanol Level) levels may va ry from individual to i ndividual. The fatal omkar ntration has been report ed to be >400 mg/dl. Comprehensive Metabolic [id number] 00:17:28 Test Item Value Reference Range Interpretation [...] = Lipemia) 0 g/dL 1-2 Comprehensive Metabolic [id number] 00:17:28 Test Item Value Reference Range Interpretation [...] not provided, and t he patient is femnaun le, multiply by 0.7 42. Results for [...] = 0 g/dL 1-2 Lipemia) Comprehensive Metabolic [id number] 00:17:28 Test Item Value Reference Range Interpretation [...] ag e have not been validated by [facility] MDRD study and should be interpreted [...] ag e have not been validated by [facility] MDRD study and should be interpreted [...] g/dL 1-2 Lipemia) Complete Blood Count with [id number] 23:26:28 Test Item Value Reference Range Interpretation [...] code = IPF) 0 % N Automated Eredlwvtfatj1617-41-10 23:26:28 Test Item Value Reference Range Interpretation Comments Neutro Auto (test code = Neutro 67.1 % 36.0-70.0 Auto) Lymph Auto (test code = Lymph Auto) 23.3 % 12.0-44.0 [place] Auto (test code = [place] Auto) 5.8 % 0.0-11.0 Eos, Auto (test code = Eos, Auto) 2.3 % 0.0-7.0 Basophil Auto (test code = Basophil 0.8 % 0.0-2.0 Auto) Neutro Absolute (test code = Neutro 6.0 x10 1.6-7.4 Absolute) Lymph Absolute (test code = Lymph 2.10 x10 .50-4.60 Absolute) [place] Absolute (test code = [place] .52 x10 .00-1.20 Absolute) Eos Absolute (test code = Eos 0.21 x10 0.00-0.74 Absolute) Baso Absolute (test code = Baso 0.07 x10 0.00-0.21 Absolute) IG [id number] 23:26:28 Test Item Value Reference Range Interpretation Comments IG (test code = IG) 0.7 % 0.0-5.0 IG Abs (test code = IG Abs) 0 x10 N HERPES VIRUS ANTIBODY, [id number] 21:46:00 Test Item Value Reference Range Interpretation Comments HERPES VIRUS IGM ([facility]) Negative SE E ATTACHMENT (test code = 1808) BLOOD [id number] 06:00:00 Test Item Value Reference Range Interpretation Comments CULTURE (BEAKER) (test No growth in 5 days code = 1095) BLOOD [id number] 06:00:00 Test Item Value Reference Range Interpretation Comments CULTURE (BEAKER) (test No growth in 5 days code = 1095) POCT-GLUCOSE [id number] 12:11:00 Test Item Value Reference Range Interpretation Comments POC-GLUCOSE METER 154 mg/dL 70-110 H TESTED AT [place] [address] ([facility]) (test code = [facility] 1538) [address] POCT-GLUCOSE [id number] 07:53:00 Test Item Value Reference Range Interpretation Comments POC-GLUCOSE METER 87 mg/dL 70-110 TESTED AT [place] [address] ([facility]) (test code = [facility] [address] 1538) POCT-GLUCOSE [id number] 06:49:00 Test Item Value Reference Range Interpretation Comments POC-GLUCOSE METER 79 mg/dL 70-110 TESTED AT [place] [address] ([facility]) (test code = [facility] [address] 1538) COMPREHENSIVE METABOLIC [id number] 06:15:00 Test Item Value Reference Range Interpretation Comments TOTAL PROTEIN 5.1 gm/dL 6.0-8.3 L ([facility]) (test code = 770) ALBUMIN ([facility]) 2.2 g/dL 3.5-5.0 L (test code [...] S NOT APPLICABLE FOR DIALYSIS PATIEN TS. [id number] 06:11:00 Test Item Value Reference Range Interpretation Comments MAGNESIUM (BEAKER) (test code = 2.1 mg/dL 1.6-2.6 627) HEPATIC FUNCTION [id number] 06:11:00 Test Item Value Reference Range Interpretation Comments TOTAL PROTEIN (BEAKER) (test code = 5.1 gm/dL 6.0-8.3 L 770) ALBUMIN (BEAKER) (test code = 1145) 2.2 g/dL 3.5-5.0 L BILIRUBIN TOTAL (BEAKER) (test code 1.1 mg/dL 0.2-1.2 = 377) BILIRUBIN DIRECT (BEAKER) (test 0.7 mg/dL 0.1-0.5 H code = 706) ALKALINE PHOSPHATASE (BEAKER) (test 78 U/L 40-150 code = 346) AST (SGOT) ([facility]) (test code = 256 U/L 5-34 H 353) ALT (SGPT) ([facility]) (test code = 513 U/L 6-55 H 347) [id number] 05:30:00 Test Item Value Reference Range Interpretation Comments FIBRINOGEN LEVEL ([facility]) (test 368 mg/dl 225-434 code = 658) [id number] 05:30:00 Test Item Value Reference Range Interpretation Comments PARTIAL THROMBOPLASTIN TIME 42.2 seconds 22.5-36.0 H (MADIE) (test code = 760) PROTHROMBIN [id number] 05:29:00 Test Item Value Reference Range Interpretation Comments PROTIME (MADIE) (test code = 14.8 seconds 11.7-14.7 H 759) INR ([facility]) (test code = 370) 1.2 <=5.9 RECOMMENDED COUMADIN/WARFARIN INR THERAPY RANGESSTANDARD DOSE: 2.0 - 3.0 Includes: PROPHYLAXIS for venous thrombosis, systemic embolization; TREATMENT for venous thrombosis and/or pulmonary embolus.HIGH RISK: Target INR is 2.5-3.5 for patients with mechanical heart valves.POCT-GLUCOSE [id number] 21:09:00 Test Item Value Reference Range Interpretation Comments POC-GLUCOSE METER 178 mg/dL 70-110 H TESTED AT [place] [address] ([facility]) (test code = [place] [facility] 1538) [id number] POCT-GLUCOSE [id number] 17:18:00 Test Item Value Reference Range Interpretation Comments POC-GLUCOSE METER 178 mg/dL 70-110 H TESTED AT [place] [address] ([facility]) (test code = [place] [facility] 1538) [address] POCT-GLUCOSE [id number] 13:48:00 Test Item Value Reference Range Interpretation Comments POC-GLUCOSE METER 150 mg/dL 70-110 H TESTED AT [place] [address] ([facility]) (test code = [place] [facility] 1538) [address] FACTOR 5 ACTIVITY (BLEEDING RISK)2017-01-06 10:04:00 Test Item Value Reference Range Interpretation Comments FACTOR V ACTIVITY (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 G 1807) CYTOMEGALOVIRUS ANTIBODY, [id number] 08:59:00 Test Item Value Reference Range Interpretation Comments CYTOMEGALOVIRUS IGG ANTIBODY Positive (BEAKER) (test code = 790) EBV-VCA ANTIBODY, [id number] 08:59:00 Test Item Value Reference Range Interpretation Comments JASE-WALL VCA IGG (BEAKER) (test Positive code = 983) EBV-VCA ANTIBODY, [id number] 08:59:00 Test Item Value Reference Range Interpretation Comments JASE-WALL VCA IGM (BEAKER) (test Negative code = 984) POCT-GLUCOSE [id number] 07:59:00 Test Item Value Reference Range Interpretation Comments POC-GLUCOSE METER 81 mg/dL 70-110 TESTED AT [facility] [address] ([facility]) (test code = [place] [facility] [address] 1538) COMPREHENSIVE METABOLIC [id number] 06:23:00 Test Item Value Reference Range Interpretation [...] S NOT APPLICABLE FOR DIALYSIS PATIEN TS. [id number] 06:17:00 Test Item Value Reference Range Interpretation Comments MAGNESIUM (BEAKER) (test code = 1.8 mg/dL 1.6-2.6 627) HEPATIC FUNCTION [id number] 06:17:00 Test Item Value Reference Range Interpretation [...] code = 779 U/L 6-55 H 347) [id number] 06:00:00 Test Item Value Reference Range Interpretation Comments FIBRINOGEN LEVEL (BEAKER) (test 390 mg/dl 225-434 code = 658) [id number] 06:00:00 Test Item Value Reference Range Interpretation Comments PARTIAL THROMBOPLASTIN TIME 40.2 seconds 22.5-36.0 H (BEAKER) (test code = 760) PROTHROMBIN [id number] 05:59:00 Test Item Value Reference Range Interpretation Comments PROTIME ([facility]) (test code = 14.6 seconds 11.7-14.7 759) INR ([facility]) (test code = 370) 1.2 <=5.9 RECOMMENDED COUMADIN/WARFARIN INR THERAPY RANGESSTANDARD DOSE: 2.0 - 3.0 Includes: PROPHYLAXIS for venous thrombosis, systemic embolization; TREATMENT for venous thrombosis and/or pulmonary embolus.HIGH RISK: Target INR is 2.5-3.5 for patients with mechanical heart valves.POCT-GLUCOSE [id number] 21:46:00 Test Item Value Reference Range Interpretation Comments POC-GLUCOSE METER 153 mg/dL 70-110 H TESTED AT [place] [address] ([facility]) (test code = [facility] 1538) [id number] POCT-GLUCOSE [id number] 18:47:00 Test Item Value Reference Range Interpretation Comments POC-GLUCOSE METER 181 mg/dL 70-110 H TESTED AT [place] [address] ([facility]) (test code = [facility] 1538) [address] POCT-GLUCOSE [id number] 12:40:00 Test Item Value Reference Range Interpretation Comments POC-GLUCOSE METER 178 mg/dL 70-110 H TESTED AT [place] [address] ([facility]) (test code = [facility] 1538) [address] POCT-GLUCOSE [id number] 07:51:00 Test Item Value Reference Range Interpretation Comments POC-GLUCOSE METER 166 mg/dL 70-110 H TESTED AT [place] [address] ([facility]) (test code = [facility] 1538) [address] COMPREHENSIVE METABOLIC [id number] 03:26:00 Test Item Value Reference Range Interpretation Comments TOTAL PROTEIN 5.2 gm/dL 6.0-8.3 L ([facility]) (test code = 770) ALBUMIN ([facility]) 2.3 g/dL 3.5-5.0 L (test code = 1145) ALKALINE PHOSPHATASE 72 U/L 40-150 ([facility]) (test code = 346) BILIRUBIN TOTAL 2.0 mg/dL 0.2-1.2 H ([facility]) (test code = 377) SODIUM ([facility]) (test 140 meq/L 136-145 code = 381) [...] S NOT APPLICABLE FOR DIALYSIS PATIEN TS. [id number] 03:22:00 Test Item Value Reference Range Interpretation Comments MAGNESIUM (BEAKER) (test code = 1.4 mg/dL 1.6-2.6 L 627) HEPATIC FUNCTION [id number] 03:22:00 Test Item Value Reference Range Interpretation [...] code = 1009 U/L 6-55 H 347) [id number] 03:12:00 Test Item Value Reference Range Interpretation Comments AMMONIA (BEAKER) (test code = 348) 29 mol/L 18-72 [id number] 03:10:00 Test Item Value Reference Range Interpretation Comments PARTIAL THROMBOPLASTIN TIME 42.3 seconds 22.5-36.0 H (BEAKER) (test code = 760) PROTHROMBIN [id number] 03:09:00 Test Item Value Reference Range Interpretation Comments PROTIME (BEAKER) (test code = 16.4 seconds 11.7-14.7 H 759) INR (BEAKER) (test code = 370) 1.3 <=5.9 RECOMMENDED COUMADIN/WARFARIN INR THERAPY RANGESSTANDARD DOSE: 2.0 - 3.0 Includes: PROPHYLAXIS for venous thrombosis, systemic embolization; TREATMENT for venous thrombosis and/or pulmonary embolus.HIGH RISK: Target INR is 2.5-3.5 for patients with mechanical heart valves.[id number] 03:09:00 Test Item Value Reference Range Interpretation Comments FIBRINOGEN LEVEL (BEAKER) (test 413 mg/dl 225-434 code = 658) CBC W/PLT COUNT & AUTO [id number] 03:09:00 Test Item Value Reference Range Interpretation [...] L 0.00-0.20 (test code = 417) 0.00POCT-GLUCOSE [id number] 22:33:00 Test Item Value Reference Range Interpretation Comments POC-GLUCOSE METER 230 mg/dL 70-110 H TESTED AT [place] [address] ([facility]) (test code = [facility] 1538) [address] POCT-GLUCOSE [id number] 18:17:00 Test Item Value Reference Range Interpretation Comments POC-GLUCOSE METER 222 mg/dL 70-110 H TESTED AT [place] [address] ([facility]) (test code = [facility] 1538) [address] COMPREHENSIVE METABOLIC [id number] 16:59:00 Test Item Value Reference Range Interpretation [...] PATIEN TS. PERIPHERAL BLOOD SMEAR - PATHOLOGIST [id number] 15:30:00 Test Item Value Reference Range Interpretation Comments RBC MORPHOLOGY Polychromasia (BEAKER) (test code = 2846) RBC MORPHOLOGY Anisocytosis (BEAKER) (test code = 05432) PERIPHERAL SMR REVIEW Cell counts confirmed (BEAKER) (test code = 6770) [id number] Josefina Lara M.D. (BEAKER) (test code = (electronic signature) 0853) PROTHROMBIN TIME/[id number] 15:12:00 Test Item Value Reference Range Interpretation [...] Negative Negative (test code = 418) POCT-GLUCOSE [id number] 12:47:00 Test Item Value Reference Range Interpretation Comments POC-GLUCOSE METER 212 mg/dL 70-110 H TESTED AT [facility] 6720 (MADIE) (test code = [place] 1538) [address] [id number] 12:34:00 Test Item Value Reference Range Interpretation Comments RPR SCREEN (MADIE) (test code = Nonreactive Nonreactive 420) CLOSTRIDIUM DIFFICILE TOXIN [id number] 10:12:00 Test Item Value Reference Range Interpretation [...] Reference Range Interpretation Comments FACTOR V ACTIVITY ([employer]) (test code 86.0 % 60.0-150.0 = 665) Effective 10/24/2013: Reference Range Change-Adult onlyNew: 60.0-150.0 Previous: 50.0-150.0FACTOR 5 ACTIVITY (BLEEDING RISK)2017-01-04 09:13:00 Test Item Value Reference Range Interpretation Comments FACTOR V ACTIVITY ([employer]) (test code 56.0 % 60.0-150.0 L = 665) Effective 10/24/2013: Reference Range Change-Adult onlyNew: 60.0-150.0 Previous: 50.0-150.0POCT-GLUCOSE [id number] 06:40:00 Test Item Value Reference Range Interpretation Comments POC-GLUCOSE METER 167 mg/dL 70-110 H TESTED AT [facility] 67[address] (BEAKER) (test code = [place] 1538) [address] COMPREHENSIVE METABOLIC [id number] 04:08:00 Test Item Value Reference Range Interpretation [...] ESTIM ATED GFR. Specimen slightly ictericHEPATIC FUNCTION [id number] 04:06:00 Test Item Value Reference Range Interpretation [...] 1091 U/L 6-55 H 347) Specimen slightly ocgkfpaDMNIFJDSKU6732-12-66 04:01:00 Test Item Value Reference Range Interpretation Comments FIBRINOGEN LEVEL (BEAKER) (test 379 mg/dl 225-434 code = 658) [id number] 04:01:00 Test Item Value Reference Range Interpretation Comments PARTIAL THROMBOPLASTIN TIME 40.7 seconds 22.5-36.0 H (BEAKER) (test code = 760) PROTHROMBIN [id number] 04:00:00 Test Item Value Reference Range Interpretation [...] mechanical heart valves.CBC W/PLT COUNT & AUTO [id number] 03:56:00 Test Item Value Reference Range Interpretation [...] L 0.00-0.20 (test code = 417) 0.00POCT-GLUCOSE [id number] 00:19:00 Test Item Value Reference Range Interpretation Comments POC-GLUCOSE METER 159 mg/dL 70-110 H TESTED AT [facility] 67[address] (BEAKER) (test code = [place] 1538) [address] POCT-GLUCOSE [id number] 18:56:00 Test Item Value Reference Range Interpretation Comments POC-GLUCOSE METER 192 mg/dL 70-110 H TESTED AT [facility] 6720 (BEAKER) (test code = [place] 1531) [address] COMPREHENSIVE METABOLIC [id number] 16:55:00 Test Item Value Reference Range Interpretation [...] CALCULATE ESTIM ATED GFR. Specimen slightly ictericPROTHROMBIN TIME/[id number] 16:37:00 Test Item Value Reference Range Interpretation Comments PROTIME (BEAKER) (test code = 20.9 seconds 11.7-14.7 H 759) INR (BEAKER) (test code = 370) 1.8 <=5.9 RECOMMENDED COUMADIN/WARFARIN INR THERAPY RANGESSTANDARD DOSE: 2.0 - 3.0 Includes: PROPHYLAXIS for venous thrombosis, systemic embolization; TREATMENT for venous thrombosis and/or pulmonary embolus.HIGH RISK: Target INR is 2.5-3.5 for patients with mechanical heart valves.HEPATITIS B SURFACE [id number] 14:05:00 Test Item Value Reference Range Interpretation Comments HEPATITIS B SURFACE ANTIBODY < mIU/mL <8.0 (BEAKER) (test code = 647) HEPATITIS B CORE ANTIBODY, [id number] 13:43:00 Test Item Value Reference Range Interpretation Comments HEPATITIS B CORE TOTAL ANTIBODY Nonreactive Nonreactive (BEAKER) (test code = 497) BLOOD GAS, [id number] 13:35:00 Test Item Value Reference Range Interpretation [...] code = 1819) 28.0 % URINALYSIS W/ [id number] 13:16:00 Test Item Value Reference Range Interpretation [...] 1584) SOURCE(BEAKER) (test code = Urine, [place] 1011) VITAMIN D, 71-XSFRHQW7903-10-16 13:14:00 Test Item Value Reference Range Interpretation Comments VITAMIN D 25-OH (BEAKER) (test code = < ng/mL 13.0-47.8 L 2764) ALPHA FETOPROTEIN (AFP), TUMOR [id number] 13:06:00 Test Item Value Reference Range Interpretation Comments ALPHA-FETOPROTEIN (BEAKER) (test code < ng/mL <10.0 = 1094) Effective 05/08/2014: Reference Range ChangeNew: <10.0 Previous: 0.0-8.0 HEMOGLOBIN [id number] 13:05:00 Test Item Value Reference Range Interpretation Comments HEMOGLOBIN A1C (BEAKER) (test code = 7.6 % 4.3-6.1 H 368) CARCINOEMBRYONIC ANTIGEN (CEA)2017-01-03 12:59:00 Test Item Value Reference Range Interpretation Comments CARCINOEMBRYONIC ANTIGEN (BEAKER) 2.0 ng/mL 0.0-5.0 (test code = 685) [id number] 12:59:00 Test Item Value Reference Range Interpretation Comments FERRITIN (BEAKER) (test code = 1841 ng/mL 5-275 H 361) Effective 05/08/2014: Reference Range ChangeNew: Male 5-275 Previous: Male 22- 322 Female 5-275 Female [id number] 12:58:00 Test Item Value Reference Range Interpretation Comments T4 TOTAL (BEAKER) (test code = 895) 4.5 ug/dL 4.9-11.7 L [id number] 12:58:00 Test Item Value Reference Range Interpretation Comments THYROID STIMULATING HORMONE 1.79 uIU/mL 0.35-4.94 (BEAKER) (test code = 772) [id number] 12:58:00 Test Item Value Reference Range Interpretation Comments T3 TOTAL (BEAKER) (test code = 656) 34 ng/dL 48-159 L Effective 05/08/2014: Reference Range ChangeNew: 48-159 Previous: 60-181CALCIUM, [id number] 12:47:00 Test Item Value Reference Range Interpretation Comments CALCIUM IONIZED (BEAKER) (test 1.05 mmol/L 1.12-1.27 L code = 698) PH, BLOOD (BEAKER) (test code = 7.43 1810) [id number] 12:42:00 Test Item Value Reference Range Interpretation [...] % 20-55 (test code = 2590) URIC [id number] 12:40:00 Test Item Value Reference Range Interpretation Comments URIC ACID (BEAKER) (test code = 16.0 mg/dL 2.6-7.2 H 773) Specimen slightly ictericLIPID [id number] 12:40:00 Test Item Value Reference Range Interpretation [...] 160-189 Very High >=190 Specimen slightly ictericBILIRUBIN, [id number] 12:40:00 Test Item Value Reference Range Interpretation Comments BILIRUBIN DIRECT (MADIE) (test 2.4 mg/dL 0.1-0.5 H code = 706) GAMMA GLUTAMYL TRANSFERASE (GGT)2017-01-03 12:40:00 Test Item Value Reference Range Interpretation Comments GAMMA GLUTAMYL TRANSFERASE (MADIE) 53 U/L 9-64 (test code = 364) Specimen slightly [id number] 12:39:00 Test Item Value Reference Range Interpretation Comments ETHANOL (MADIE) (test code = 400) < mg/dL <=10 SCREEN, [id number] 12:36:00 Test Item Value Reference Range Interpretation Comments TEST URINE (MADIE) (test Negative code = 583) POCT-GLUCOSE [id number] 12:34:00 Test Item Value Reference Range Interpretation Comments POC-GLUCOSE METER 189 mg/dL 70-110 H TESTED AT [facility] 6720 ([place]ADIE) (test code = [place] [facility] 1538) [address] HIV-1 ANTIGEN WITH HIV-1/2 [id number] 11:58:00 Test Item Value Reference Range Interpretation Comments HIV-1 ANTIGEN WITH HIV 1\\T\\2 Nonreactive Nonreactive ANTIBODY (2) (MADIE) (test code = 2586) TROPONIN [id number] 09:44:00 Test Item Value Reference Range Interpretation [...] 0.0-4.9CK-MB Reference Range:<6.7 Normal6.7-10.0 Borderline>10.0 Abnormal ACETAMINOPHEN [id number] 08:31:00 Test Item Value Reference Range Interpretation Comments ACETAMINOPHEN LEVEL (BEAKER) (test < ug/mL 10.0-30.0 L code = 344) TROPONIN [id number] 05:53:00 Test Item Value Reference Range Interpretation [...] acute neurological disease, and persistent tachyarrhythmia.BASIC METABOLIC [id number] 05:53:00 Test Item Value Reference Range Interpretation [...] TO CALCULA TE ESTIMATED GFR. Specimen slightly [id number] 05:52:00 Test Item Value Reference Range Interpretation Comments PHOSPHORUS (BEAKER) (test code = 5.7 mg/dL 2.3-4.7 H 604) HEPATIC FUNCTION [id number] 05:52:00 Test Item Value Reference Range Interpretation [...] Specimen slightly ictericCREATINE KINASE (CK), TOTAL AND [id number] 05:52:00 Test Item Value Reference Range Interpretation Comments CREATINE KINASE TOTAL (BEAKER) 341 U/L 29-200 H (test code = 380) CREATINE KINASE-MB (BEAKER) (test 5.4 ng/mL 0.0-6.6 code = 750) CREATINE KINASE-MB INDEX (BEAKER) 1.6 % (test code = 395) Effective 05/08/2014: CK-MB Reference Range ChangeNew: 0.0-6.6 Previous: 0.0-4.9CK-MB Reference Range:<6.7 Normal6.7-10.0 Borderline>10.0 Abnormal CBC W/PLT COUNT & AUTO [id number] 05:48:00 Test Item Value Reference Range Interpretation [...] K/ L 0.00-0.20 (test code = 417) 0.62IXBIFRDZMG0872-36-20 05:09:00 Test Item Value Reference Range Interpretation Comments FIBRINOGEN LEVEL (BEAKER) (test 427 mg/dl 225-434 code = 658) [id number] 05:09:00 Test Item Value Reference Range Interpretation Comments PARTIAL THROMBOPLASTIN TIME 36.2 seconds 22.5-36.0 H (BEAKER) (test code = 760) PROTHROMBIN TIME/[id number] 05:08:00 Test Item Value Reference Range Interpretation Comments PROTIME (BEAKER) (test code = 22.8 seconds 11.7-14.7 H 759) INR (BEAKER) (test code = 370) 2.0 <=5.9 RECOMMENDED COUMADIN/WARFARIN INR THERAPY RANGESSTANDARD DOSE: 2.0 - 3.0 Includes: PROPHYLAXIS for venous thrombosis, systemic embolization; TREATMENT for venous thrombosis and/or pulmonary embolus.HIGH RISK: Target INR is 2.5-3.5 for patients with mechanical heart valves.HEPATITIS PANEL, [id number] 03:40:00 Test Item Value Reference Range Interpretation Comments HEPATITIS A IGM ANTIBODY (BEAKER) Nonreactive Nonreactive (test code = 498) HEPATITIS B CORE IGM ANTIBODY Nonreactive Nonreactive (BEAKER) (test code = 645) HEPATITIS C ANTIBODY (BEAKER) Nonreactive Nonreactive (test code = 367) HEPATITIS B SURFACE ANTIGEN (2) Nonreactive Nonreactive (BEAKER) (test code = 2585) CREATININE, RANDOM [id number] 03:18:00 Test Item Value Reference Range Interpretation Comments CREATININE URINE (BEAKER) (test 118.7 mg/dL code = 375) Reference Range: No NormalsSODIUM, RANDOM [id number] 03:18:00 Test Item Value Reference Range Interpretation Comments SODIUM URINE (BEAKER) (test code = 60 meq/L 243) Reference Range: No NormalsUREA NITROGEN, RANDOM [id number] 03:18:00 Test Item Value Reference Range Interpretation Comments UREA NITROGEN URINE (BEAKER) (test 303 mg/dL code = 538) Reference Range: No [id number] 03:07:00 Test Item Value Reference Range Interpretation Comments AMMONIA (BEAKER) (test code = 348) 48 mol/L 18-72 [id number] 02:57:00 Test Item Value Reference Range Interpretation [...] within 95-100% range. URINALYSIS W/ REFLEX URINE [id number] 02:53:00 Test Item Value Reference Range Interpretation [...] = 514) SOURCE(BEAKER) (test code = 2795) [id number] 02:49:00 Test Item Value Reference Range Interpretation Comments PARTIAL THROMBOPLASTIN TIME 39.4 seconds 22.5-36.0 H (BEAKER) (test code = 760) PROTHROMBIN TIME/[id number] 02:48:00 Test Item Value Reference Range Interpretation Comments PROTIME (BEAKER) (test code = 22.0 seconds 11.7-14.7 H 759) INR (BEAKER) (test code = 370) 1.9 <=5.9 RECOMMENDED COUMADIN/WARFARIN INR THERAPY RANGESSTANDARD DOSE: 2.0 - 3.0 Includes: PROPHYLAXIS for venous thrombosis, systemic embolization; TREATMENT for venous thrombosis and/or pulmonary embolus.HIGH RISK: Target INR is 2.5-3.5 for patients with mechanical heart valves.[id number] 02:48:00 Test Item Value Reference Range Interpretation Comments FIBRINOGEN LEVEL (BEAKER) (test 421 mg/dl 225-434 code = 658) BLOOD GAS, [id number] 02:43:00 Test Item Value Reference Range Interpretation [...] 21.0 % CBC W/PLT COUNT & AUTO [id number] 02:43:00 Test Item Value Reference Range Interpretation [...] code = 417) 0.00LACTIC ACID, VENOUS, WHOLE [id number] 02:35:00 Test Item Value Reference Range Interpretation Comments LACTATE BLOOD VENOUS (2) (BEAKER) 0.8 mmol/L 0.5-2.2 (test code = 2872) Effective 10/23/2015: Units/Reference Range ChangeNew: 0.5-2.2 mmol/L Previous: 5- 20 mg/dLSpecimen slightly [id number] 11:32:00 Test Item Value Reference Range Interpretation Comments AGAP (test code = AGAP) 14.6 10.0-20.0 [facility]Xv[facility]fsvBPBMNMZQPQUL4887-[facility] 11:32:00 Test Item Value Reference Range Interpretation Comments eGFR (test code = eGFR) 33 [facility] HospitalAkgnjocNCETTCFXYTTU7784-15-14 11:32:00 Test Item Value Reference Range Interpretation Comments Calcium Lvl (test code = Calcium Lvl) 8.3 8.5-10.5 [facility] HospitalPumynpcUGMPCJBFNDIM3217-49-05 11:32:00 Test Item Value Reference Range Interpretation Comments Glucose Lvl (test code = Glucose Lvl) 81 70-99 [facility] HospitalHxoomvrPDPEMEYJCAGT2280-20-86 11:32:00 Test Item Value Reference Range Interpretation Comments Creatinine Lvl (test code = Creatinine 1.95 0.50-1.40 Lvl) [facility] HospitalOxsigdhFGRAGVGPYKXG5436-61-37 11:32:00 Test Item Value Reference Range Interpretation Comments BUN (test code = BUN) 55 7-22 [facility] HospitalHvyanxfUIJRTQHPNUBU7224-35-20 11:32:00 Test Item Value Reference Range Interpretation Comments CO2 (test code = CO2) 19 24-32 [facility] HospitalTkcxroxKEKCCKBFRUPH0405-66-83 11:32:00 Test Item Value Reference Range Interpretation Comments Chloride Lvl (test code = Chloride Lvl) 110 95-109 [facility] HospitalYtmvncyNVKJPBZJGLOR3649-68-84 11:32:00 Test Item Value Reference Range Interpretation Comments Sodium Lvl (test code = Sodium Lvl) 139 135-145 [facility] HospitalPediybsWVYGALBDJUXU8857-46-81 11:32:00 Test Item Value Reference Range Interpretation Comments Potassium Lvl (test code = Potassium 4.6 3.5-5.1 Lvl) [facility]WzgoiknAWYSTRMFIH9282-00-92 11:32:00 Test Item Value Reference Range Interpretation Comments Lymphocytes (test code = Lymphocytes) 30.4 20.0-40.0 [facility]UcbkfamYRQJTLATOR9444-48-63 11:32:00 Test Item Value Reference Range Interpretation Comments Eosinophils (test code = 4.5 See_Comment [A utomated message] The Eosinophils) system which ge nerated this result tra nsmitted reference range : <=4.0. The reference r leo was not used to int erpret this result as normal/abnormal . [facility] CenterBppqbbiFYFGSILBLX1322-67-63 11:32:00 Test Item Value Reference Range Interpretation Comments Monocytes (test code = Monocytes) 13.7 2.0-12.0 [facility] CenterVnzdgojSUPTJOOBZE8381-04-43 11:32:00 Test Item Value Reference Range Interpretation Comments Segs-Bands # (test code = Segs-Bands #) 2.6 1.5-8.1 [facility] CenterKsqfddeYKXWANCQMT9471-79-43 11:32:00 Test Item Value Reference Range Interpretation Comments Basophils (test code = 0.7 See_Comment [Aut omated message] The Basophils) system which ge nerated this result tra nsmitted reference range : <=1.0. The reference r leo was not used to int erpret this result as normal/abnormal . [facility] CenterYzdovnzUVCKLADPCG3287-91-80 11:32:00 Test Item Value Reference Range Interpretation Comments Monocytes # (test code 0.7 See_Comment [Aut omated message] The = Monocytes #) system which generated this result tra nsmitted reference range : <=0.8. The reference r leo was not used to int erpret this result as normal/abnormal . [facility] CenterBqifffzXSNFIUJNXB5654-27-20 11:32:00 Test Item Value Reference Range Interpretation Comments Lymphocytes # (test code = Lymphocytes 1.6 1.0-5.5 #) [facility] CenterXstotmcAWUFYMXLYB7711-36-47 11:32:00 Test Item Value Reference Range Interpretation Comments Eosinophils # (test code 0.2 See_Comment [A utomated message] The = Eosinophils #) system ic h generated this result tra nsmitted reference range : <=0.5. The reference r leo was not used to int erpret this result as normal/abnormal . [facility] CenterOnbhrlyFWXXSHAVYJ7766-13-64 11:32:00 Test Item Value Reference Range Interpretation Comments Segs (test code = Segs) 50.7 45.0-75.0 [facility] CenterRanpnuuOJTMMUVTFD6859-21-22 11:32:00 Test Item Value Reference Range Interpretation [...] iron deficiency anemia, and renal disease. CPT: 14797 [facility] CenterIkunxgeUEHUVZMEYT0652-26-05 11:32:00 Test Item Value Reference Range Interpretation Comments Hct (test code = Hct) 28.1 36.0-48.0 [facility] CenterGotsnqqAGJCNTEYWF7678-95-57 11:32:00 Test Item Value Reference Range Interpretation Comments RBC (test code = RBC) 3.39 4.20-5.40 [facility] CenterDyktoqyUTKASVDSUV5993-39-02 11:32:00 Test Item Value Reference Range Interpretation Comments Hgb (test code = Hgb) 8.9 12.0-16.0 [facility] CenterCviaphxGRLJMFJOKF8383-19-57 11:32:00 Test Item Value Reference Range Interpretation Comments WBC (test code = WBC) 5.1 3.7-10.4 [facility] CenterJguijuhCKEMCVYDBQ3433-70-08 11:32:00 Test Item Value Reference Range Interpretation Comments MPV (test code = MPV) 11.3 7.4-10.4 [facility] CenterVuodcnhJLYNLPEDAC0258-63-84 11:32:00 Test Item Value Reference Range Interpretation Comments Platelet (test code = Platelet) 118 133-450 [facility] CenterMvnieymQVBQWYIHUE1912-54-44 11:32:00 Test Item Value Reference Range Interpretation Comments MCHC (test code = MCHC) 31.8 32.0-36.0 [facility] CenterGnpsfiiJBOWBOSWBP2992-12-68 11:32:00 Test Item Value Reference Range Interpretation Comments RDW (test code = RDW) 18.0 11.5-14.5 [facility] CenterVqppxqzZKTPUCXOXZ6083-08-33 11:32:00 Test Item Value Reference Range Interpretation Comments MCV (test code = MCV) 83.0 80.0-98.0 [facility] CenterGtaocfoQSSXSXKJYZ9675-18-44 11:32:00 Test Item Value Reference Range Interpretation Comments MCH (test code = MCH) 26.4 pg 27.0-31.0 [facility] HospitalKnjlowtQTBAOYLUNG1647-55-08 11:32:00 Test Item Value Reference Range Interpretation Comments C3 Complement (test code = C3 137 88-201 Complement) [facility] HospitalIgottfmXKBHAGPLBV4141-66-87 11:32:00 Test Item Value Reference Range Interpretation Comments HIV. (test code = Negative *NA*(07/30/16 HIV.) 5:32 AM) [facility] HealthGbqmjibKGCYZEGFTJ0681-90-67 11:05:00 Test Item Value Reference Range Interpretation [...] iron deficiency anemia, and renal disease. CPT: 94408 [facility]DfslmibOTFJBEOJAU9431-29-04 11:05:00 Test Item Value Reference Range Interpretation Comments HIV. (test code = Negative *NA*(07/29/16 HIV.) 5:05 AM) [facility] HospitalRubbxpaIVRSGOKIBQ4633-75-37 11:05:00 Test Item Value Reference Range Interpretation Comments C3 Complement (test code = C3 92 88-201 Complement) [facility]2017-02-07 15:50:00 Test Item Value Reference Range Interpretation Comments eGFR (test code = eGFR) 25 [facility]2017-02-07 15:50:00 Test Item Value Reference Range Interpretation Comments BUN (test code = BUN) 55 7-22 [facility]2017-02-07 15:50:00 Test Item Value Reference Range Interpretation Comments CO2 (test code = CO2) 23 24-32 [facility]2017-02-07 15:50:00 Test Item Value Reference Range Interpretation Comments Chloride Lvl (test code = Chloride Lvl) 109 95-109 [facility]2017-02-07 15:50:00 Test Item Value Reference Range Interpretation Comments Glucose Lvl (test code = Glucose Lvl) 101 70-99 [facility]2017-02-07 15:50:00 Test Item Value Reference Range Interpretation Comments Potassium Lvl (test code = Potassium 4.0 3.5-5.1 Lvl) [facility]2017-02-07 15:50:00 Test Item Value Reference Range Interpretation Comments Sodium Lvl (test code = Sodium Lvl) 141 135-145 [facility]2017-02-07 15:50:00 Test Item Value Reference Range Interpretation Comments AGAP (test code = AGAP) 13.0 10.0-20.0 [facility]2017-02-07 15:50:00 Test Item Value Reference Range Interpretation Comments Calcium Lvl (test code = Calcium Lvl) 7.7 8.5-10.5 [facility]2017-02-07 15:50:00 Test Item Value Reference Range Interpretation Comments Creatinine Lvl (test code = Creatinine 2.49 0.50-1.40 Lvl) [facility] CenterYdkwbkhDSYRCBFYDC3677-08-07 15:50:00 Test Item Value Reference Range Interpretation Comments PT (test code = PT) 14.8 s 12.0-14.7 [facility] CenterTuwcmorIZLWHSWSIS5903-85-39 15:50:00 Test Item Value Reference Range Interpretation Comments PTT (test code = PTT) 40.8 s 22.9-35.8 [facility] CenterDcmwnwjXBPNNRFRLF1470-76-94 15:50:00 Test Item Value Reference Range Interpretation Comments INR (test code = INR) 1.14 0.85-1.17 [facility] HospitalAsbwlqzHIWFYUXZIJ3898-90-04 15:50:00 Test Item Value Reference Range Interpretation Comments C3 Complement (test code = C3 94 88-201 Complement) [facility] CenterAkcstzsKCAXVTZSQS1128-62-16 10:35:00 Test Item Value Reference Range Interpretation Comments Lymphocytes # (test code = Lymphocytes 1.7 1.0-5.5 #) [facility] CenterDpwwhdwTKVPQWRDZY8141-36-26 10:35:00 Test Item Value Reference Range Interpretation Comments Segs-Bands # (test code = Segs-Bands #) 2.7 1.5-8.1 [facility] CenterYdnytsmFKMHJKWPAH8774-13-85 10:35:00 Test Item Value Reference Range Interpretation Comments Eosinophils # (test code 0.1 See_Comment [A utomated message] The = Eosinophils #) system whic h generated this result tra nsmitted reference range : <=0.5. The reference r leo was not used to int erpret this result as normal/abnormal . [facility] CenterEmcmijtISRHYWRGRA9040-57-08 10:35:00 Test Item Value Reference Range Interpretation Comments Monocytes # (test code 0.7 See_Comment [Aut omated message] The = Monocytes #) system which generated this result tra nsmitted reference range : <=0.8. The reference r leo was not used to int erpret this result as normal/abnormal . [facility] CenterVfzqtqkTSVDLVOMBC6248-25-36 10:35:00 Test Item Value Reference Range Interpretation Comments Segs (test code = Segs) 51.3 45.0-75.0 [facility] CenterHvkzdexBTZDVHBIHY3512-61-20 10:35:00 Test Item Value Reference Range Interpretation Comments Lymphocytes (test code = Lymphocytes) 31.6 20.0-40.0 [facility] CenterUzwjzdxAVZOFOVOIE8947-80-29 10:35:00 Test Item Value Reference Range Interpretation Comments Monocytes (test code = Monocytes) 14.1 2.0-12.0 [facility] CenterWxkaffpETEVAYZSLW0355-21-08 10:35:00 Test Item Value Reference Range Interpretation Comments Eosinophils (test code = 2.6 See_Comment [A utomated message] The Eosinophils) system which ge nerated this result tra nsmitted reference range : <=4.0. The reference r leo was not used to int erpret this result as normal/abnormal . [facility] CenterStbarjnCWWJJCYBRG4155-14-52 10:35:00 Test Item Value Reference Range Interpretation Comments Basophils (test code = 0.4 See_Comment [Aut omated message] The Basophils) system which ge nerated this result tra nsmitted reference range : <=1.0. The reference r leo was not used to int erpret this result as normal/abnormal . [facility]gekmqqBRQBKHIIRE8125-[facility] 10:35:00 Test Item Value Reference Range Interpretation Comments PB Smear Path Peripheral blood smear shows (test code = PB hypochromic normocytic Smear Path) anemia with anisopoikilocytsosis, no increase in schistocytes, slight polychromasia, a few estella cells, moderate thrombocytopenia. Impression: (1) no evidence of microangiopathic hemolysis, (2) RBC morphology is suggestive of anemia of chronic disease or iron deficiency anemia, and renal disease. CPT: 82705 [facility] CenterTqojyfaGXFMHFRYSV3937-50-02 10:35:00 Test Item Value Reference Range Interpretation Comments Hct (test code = Hct) 29.3 36.0-48.0 [facility] CenterUwpauhyRZAGYCULQT7875-98-43 10:35:00 Test Item Value Reference Range Interpretation Comments Hgb (test code = Hgb) 9.2 12.0-16.0 [facility] HospitalAkoabrtHKNXRKOQII0906-43-84 10:35:00 Test Item Value Reference Range Interpretation Comments RBC (test code = RBC) 3.54 4.20-5.40 [facility] GcrtygqMTXWSHSMDA3835-04-34 10:35:00 Test Item Value Reference Range Interpretation Comments WBC (test code = WBC) 5.3 3.7-10.4 [facility] JqxdjhwYHZVPMXXTW6400-42-98 10:35:00 Test Item Value Reference Range Interpretation Comments Platelet (test code = Platelet) 87 133-450 [facility] HospitalAfibkkzGCKXMFFHRW9571-90-59 10:35:00 Test Item Value Reference Range Interpretation Comments MCHC (test code = MCHC) 31.4 32.0-36.0 [facility] HospitalZluuztnVSLRVSKZGN9656-60-36 10:35:00 Test Item Value Reference Range Interpretation Comments RDW (test code = RDW) 17.9 11.5-14.5 [facility] HospitalZongwteXQOLMCGBDG9413-12-91 10:35:00 Test Item Value Reference Range Interpretation Comments MPV (test code = MPV) 10.9 7.4-10.4 [facility] HospitalMiqlukiNRSZYOXYTE3441-34-03 10:35:00 Test Item Value Reference Range Interpretation Comments MCH (test code = MCH) 26.0 pg 27.0-31.0 [facility] HospitalSlmgmwiXZIFGDZCHH0968-86-27 10:35:00 Test Item Value Reference Range Interpretation Comments MCV (test code = MCV) 82.8 80.0-98.0 [facility] HospitalZolqbyzNOOXHCXJSN3251-23-43 10:35:00 Test Item Value Reference Range Interpretation Comments HIV. (test code = Negative *NA*(07/28/16 HIV.) 4:35 AM) [facility] HospitalannCARDIAC [id number] 10:22:00 Test Item Value Reference Range Interpretation Comments Total CK (test code = Total CK) 190 12-191 [facility]CHE[facility] [id number] 10:22:00 Test Item Value Reference Range Interpretation Comments Calcium Lvl (test code = Calcium Lvl) 7.8 8.5-10.5 [facility]annCHEM [id number] 10:22:00 Test Item Value Reference Range Interpretation Comments CO2 (test code = CO2) 21 24-32 [facility]2017-02-06 10:22:00 Test Item Value Reference Range Interpretation Comments Sodium Lvl (test code = Sodium Lvl) 140 135-145 [facility]2017-02-06 10:22:00 Test Item Value Reference Range Interpretation Comments Potassium Lvl (test code = Potassium 3.8 3.5-5.1 Lvl) [facility]2017-02-06 10:22:00 Test Item Value Reference Range Interpretation Comments Chloride Lvl (test code = Chloride Lvl) 106 95-109 [facility]2017-02-06 10:22:00 Test Item Value Reference Range Interpretation Comments Bili Total (test code = Bili Total) 0.4 0.2-1.3 [facility]2017-02-06 10:22:00 Test Item Value Reference Range Interpretation Comments Alk Phos (test code = Alk Phos) 74 39-136 [facility]2017-02-06 10:22:00 Test Item Value Reference Range Interpretation Comments eGFR (test code = eGFR) 19 [facility]2017-02-06 10:22:00 Test Item Value Reference Range Interpretation Comments Total Protein (test code = Total 5.2 6.4-8.4 Protein) [facility]2017-02-06 10:22:00 Test Item Value Reference Range Interpretation Comments ALT (test code = ALT) 822 See_Comment [Auto mated message] The system which ge nerated this result transmit rohit reference range : <=65. The reference range was not used to interpr et this result as reji l/abnormal. [facility]2017-02-06 10:22:00 Test Item Value Reference Range Interpretation Comments AST (test code = AST) 205 See_Comment [Auto mated message] The system which ge nerated this result transmit rohit reference range : <=37. The reference range was not used to interpr et this result as reji l/abnormal. [facility]2017-02-06 10:22:00 Test Item Value Reference Range Interpretation Comments Albumin Lvl (test code = Albumin Lvl) 1.8 3.5-5.0 [facility]2017-02-06 10:22:00 Test Item Value Reference Range Interpretation Comments BUN (test code = BUN) 54 7-22 [facility]2017-02-06 10:22:00 Test Item Value Reference Range Interpretation Comments Glucose Lvl (test code = Glucose Lvl) 143 70-99 [facility]2017-02-06 10:22:00 Test Item Value Reference Range Interpretation Comments Creatinine Lvl (test code = Creatinine 3.11 0.50-1.40 Lvl) [facility]2017-02-06 10:22:00 Test Item Value Reference Range Interpretation Comments B/C Ratio (test code = B/C Ratio) 17 6-25 [facility]2017-02-06 10:22:00 Test Item Value Reference Range Interpretation Comments AGAP (test code = AGAP) 16.8 10.0-20.0 [facility]2017-02-06 10:22:00 Test Item Value Reference Range Interpretation Comments Globulin (test code = Globulin) 3.4 2.7-4.2 [facility]2017-02-06 10:22:00 Test Item Value Reference Range Interpretation Comments A/G Ratio (test code = A/G Ratio) 0.5 0.7-1.6 [facility]2017-02-06 10:22:00 Test Item Value Reference Range Interpretation Comments Magnesium Lvl (test code = Magnesium 2.0 1.8-2.4 Lvl) [facility]2017-02-06 10:22:00 Test Item Value Reference Range Interpretation Comments Phosphorus (test code = Phosphorus) 3.7 2.5-4.5 [facility] CenterIraotcgZKISSEMXHG6354-38-60 10:22:00 Test Item Value Reference Range Interpretation Comments RDW (test code = RDW) 17.7 11.5-14.5 [facility] CenterEtdwxvjIGWSSZIKHB6887-95-55 10:22:00 Test Item Value Reference Range Interpretation Comments MCHC (test code = MCHC) 32.9 32.0-36.0 [facility] CenterZqaxfguJZBPPAEISY9197-89-77 10:22:00 Test Item Value Reference Range Interpretation Comments Hct (test code = Hct) 25.4 36.0-48.0 [facility] CenterJqvnwugAMQCVHQKWM7292-15-44 10:22:00 Test Item Value Reference Range Interpretation Comments MCH (test code = MCH) 26.4 pg 27.0-31.0 [facility] CenterPrpzjbzCLPWZLHAFO2884-65-41 10:22:00 Test Item Value Reference Range Interpretation Comments MCV (test code = MCV) 80.3 80.0-98.0 [facility] CenterXljauijHLQHMSCPYK7679-23-76 10:22:00 Test Item Value Reference Range Interpretation Comments MPV (test code = MPV) 11.4 7.4-10.4 [facility] CenterQsucxtoHILHRRQGYV2359-26-03 10:22:00 Test Item Value Reference Range Interpretation Comments Platelet (test code = Platelet) 74 133-450 [facility] CenterNfzoucgHAYBDLTGBW0079-38-12 10:22:00 Test Item Value Reference Range Interpretation Comments RBC (test code = RBC) 3.16 4.20-5.40 [facility] CenterXlmvydsZAVGEFLUKA9697-51-90 10:22:00 Test Item Value Reference Range Interpretation Comments WBC (test code = WBC) 5.3 3.7-10.4 [facility] CenterDlfucphQUQHTBWIBC3334-57-12 10:22:00 Test Item Value Reference Range Interpretation Comments Hgb (test code = Hgb) 8.4 12.0-16.0 [facility] CenterXhqazrfDTYJDNEJFL2688-00-97 10:22:00 Test Item Value Reference Range Interpretation Comments Monocytes (test code = Monocytes) 14.5 2.0-12.0 [facility] CenterXrbygurSFWBZLGHUM7636-72-71 10:22:00 Test Item Value Reference Range Interpretation Comments Lymphocytes (test code = Lymphocytes) 29.8 20.0-40.0 [facility] CenterWzcgrcoOOOWITTXGM3459-60-72 10:22:00 Test Item Value Reference Range Interpretation Comments Eosinophils # (test code 0.1 See_Comment [A utomated message] The = Eosinophils #) system whic h generated this result tra nsmitted reference range : <=0.5. The reference r leo was not used to int erpret this result as normal/abnormal . [facility] CenterXpzxfduNAOYBJXEGQ9032-34-96 10:22:00 Test Item Value Reference Range Interpretation Comments Monocytes # (test code 0.8 See_Comment [Aut omated message] The = Monocytes #) system which generated this result tra nsmitted reference range : <=0.8. The reference r leo was not used to int erpret this result as normal/abnormal . [facility] CenterLghnljqOOKGZPTDUQ7607-22-43 10:22:00 Test Item Value Reference Range Interpretation Comments Segs-Bands # (test code = Segs-Bands #) 2.9 1.5-8.1 [facility]XhzajgrXTGETMHATI7831-43-90 10:22:00 Test Item Value Reference Range Interpretation Comments Lymphocytes # (test code = Lymphocytes 1.6 1.0-5.5 #) [facility]QvxqlmtQVGQFWTBDR6826-32-67 10:22:00 Test Item Value Reference Range Interpretation Comments Basophils (test code = 0.4 See_Comment [Aut omated message] The Basophils) system which ge nerated this result tra nsmitted reference range : <=1.0. The reference r leo was not used to int erpret this result as normal/abnormal . [facility] CenterXdlmcfkPCAKJLRWWX9833-52-56 10:22:00 Test Item Value Reference Range Interpretation Comments Eosinophils (test code = 1.2 See_Comment [A utomated message] The Eosinophils) system which ge nerated this result tra nsmitted reference range : <=4.0. The reference r leo was not used to int erpret this result as normal/abnormal . [facility] HealthDukcfvtQODBIMNGBW1324-72-06 10:22:00 Test Item Value Reference Range Interpretation Comments Segs (test code = Segs) 54.1 45.0-75.0 [facility] HOQOULBQW1163-45-73 10:22:00 Test Item Value Reference Range Interpretation Comments Hgb A1C (test code = Hgb A1C) 8.9 [facility] HospitalCARDIAC FOORKBL8378-31-11 17:40:00 Test Item Value Reference Range Interpretation Comments Total CK (test code = Total CK) 344 12-191 [facility] HospitalCdgmhfbAASNBNGLNJ1291-26-54 17:40:00 Test Item Value Reference Range Interpretation Comments IVETTE (test code = IVETTE) Positive *ABN*(07/26/16 11:40 AM) [facility] HospitalSljbobnYOKECNRNDM3185-90-38 17:40:00 Test Item Value Reference Range Interpretation Comments MEDICAL STENOGRAPHER Ab (test code = MEDICAL STENOGRAPHER Ab) no gt [facility] HospitalWstviqaFLERRLGOXS0933-17-71 17:40:00 Test Item Value Reference Range Interpretation Comments Sm Ab (test code = Sm Ab) no gt [facility] HospitalZuncirxZJIRJUMKRX6834-83-39 17:40:00 Test Item Value Reference Range Interpretation Comments IVETTE Interp (test code Pattern appears = IVETTE Interp) Nucleolar. [facility] HospitalZfvbcqaNHJLHTJADV3275-32-07 17:40:00 Test Item Value Reference Range Interpretation Comments SS-B (La) Ab (test code = SS-B (La) Ab) no gt [facility] HospitalEeivkdjSZWDCQTDTI1282-28-01 17:40:00 Test Item Value Reference Range Interpretation Comments SS-A (Ro) Ab (test code = SS-A (Ro) Ab) no gt [facility] HospitalKoscizjZXUHTDRRAM8970-55-29 17:40:00 Test Item Value Reference Range Interpretation Comments DNA Ab (DS) (test Negative (07/26/16 11:40 code = DNA Ab (DS)) AM) [facility] HospitalKgovbauTGYEPMKPON6271-99-10 17:40:00 Test Item Value Reference Range Interpretation Comments IVETTE Titer (test code = 1:40 *ABN*(07/26/16 IVETTE Titer) 11:40 AM) [facility] [id number] 17:40:00 Test Item Value Reference Range Interpretation Comments U Sodium (test code = U Sodium) 21 [facility] HospitalVjbfpwwELYSFFPEUO4894-99-70 14:00:00 Test Item Value Reference Range Interpretation Comments INR (test code = INR) 1.11 0.85-1.17 [facility] HospitalQgwmlqhJWQTMBPBSV4395-17-27 14:00:00 Test Item Value Reference Range Interpretation Comments PT (test code = PT) 14.5 s 12.0-14.7 [facility] HospitalPbmdircOFSKIFSDKJ1798-22-13 14:00:00 Test Item Value Reference Range Interpretation Comments Hep A IgM (test code Negative *NA*(07/26/16 = Hep A IgM) 8:00 AM) [facility] HospitalVtibinkUBNRIYCADF5174-39-58 14:00:00 Test Item Value Reference Range Interpretation Comments Hep B Core IgM (test Negative *NA*(07/26/16 code = Hep B Core 8:00 AM) IgM) [facility] HospitalSbazecqARLSXNALMF6529-35-89 14:00:00 Test Item Value Reference Range Interpretation Comments Hep C Ab (test code = Negative *NA*(07/26/16 Hep C Ab) 8:00 AM) [facility] HospitalFglzxnwQSUNLMVXHW7610-43-96 14:00:00 Test Item Value Reference Range Interpretation Comments Hep Bs Ag (test code Negative *NA*(07/26/16 = Hep Bs Ag) 8:00 AM) [facility]2017-02-05 10:42:00 Test Item Value Reference Range Interpretation Comments B/C Ratio (test code = B/C Ratio) 17 6-25 [facility]2017-02-05 10:42:00 Test Item Value Reference Range Interpretation Comments ALT (test code = ALT) 1232 See_Comment [Auto mated message] The system which ge nerated this result transmit rohit reference range : <=65. The reference range was not used to interpr et this result as reji l/abnormal. [facility]2017-02-05 10:42:00 Test Item Value Reference Range Interpretation Comments A/G Ratio (test code = A/G Ratio) 0.5 0.7-1.6 [facility]2017-02-05 10:42:00 Test Item Value Reference Range Interpretation Comments Bili Total (test code = Bili Total) 0.3 0.2-1.3 [facility]2017-02-05 10:42:00 Test Item Value Reference Range Interpretation Comments Alk Phos (test code = Alk Phos) 79 39-136 [facility]2017-02-05 10:42:00 Test Item Value Reference Range Interpretation Comments AST (test code = AST) 586 See_Comment [Auto mated message] The system which ge nerated this result transmit rohit reference range : <=37. The reference range was not used to interpr et this result as reji l/abnormal. [facility]2017-02-05 10:42:00 Test Item Value Reference Range Interpretation Comments Total Protein (test code = Total 5.5 6.4-8.4 Protein) [facility]2017-02-05 10:42:00 Test Item Value Reference Range Interpretation Comments Globulin (test code = Globulin) 3.7 2.7-4.2 [facility]2017-02-05 10:42:00 Test Item Value Reference Range Interpretation Comments Albumin Lvl (test code = Albumin Lvl) 1.8 3.5-5.0 [facility]2017-02-05 10:42:00 Test Item Value Reference Range Interpretation Comments Magnesium Lvl (test code = Magnesium 2.1 1.8-2.4 Lvl) [facility] CenterYlczxedEECQJVLZJH5118-40-72 10:42:00 Test Item Value Reference Range Interpretation Comments Acanthocyte (test code = Acanthocyte) Slight [facility] CenterUhhaducIYRQTWVBAS6910-08-82 10:42:00 Test Item Value Reference Range Interpretation Comments Rouleaux (test code = Present *ABN*(07/26/16 Rouleaux) 4:42 AM) [facility] CenterKihnwhnPQKARBUNVM9288-71-11 10:42:00 Test Item Value Reference Range Interpretation Comments Anisocyte (test code = 1+ *ABN*(07/26/16 4:42 Anisocyte) AM) [facility] CenterXxlzcosEIMWRLLSSX7209-59-42 10:42:00 Test Item Value Reference Range Interpretation Comments Basophils # (test code 0.1 See_Comment [Aut omated message] The = Basophils #) system which generated this result tra nsmitted reference range : <=0.2. The reference r leo was not used to int erpret this result as normal/abnormal . [facility] CenterQssuzenEQPRUBJASN7634-06-14 10:42:00 Test Item Value Reference Range Interpretation Comments Large Plt (test code Moderate *ABN*(07/26/16 = Large Plt) 4:42 AM) [facility] HospitalJbqrmteWPSAPSXYBC0991-64-41 10:42:00 Test Item Value Reference Range Interpretation Comments C4 Complement (test code = C4 42 16-47 Complement) [facility] AND [id number] 16:34:00 Test Item Value Reference Range Interpretation Comments UA Sq Epi (test code = UA Sq Epi) None Seen [facility] AND [id number] 16:34:00 Test Item Value Reference Range Interpretation Comments UA Waxy Cast (test code = UA Waxy Cast) 1 [facility] AND [id number] 16:34:00 Test Item Value Reference Range Interpretation Comments UA Hyal Cast (test 4 See_Comment [Automat ed message] The code = UA Hyal Cast) system which generated this result transmit rohit reference range : <=2. The reference range was not used to interpr et this result as reji l/abnormal. [facility] AND [id number] 16:34:00 Test Item Value Reference Range Interpretation Comments UA Bacteria (test code = UA Occasional /HPF Bacteria) [facility] AND [id number] 16:34:00 Test Item Value Reference Range Interpretation Comments UA Mucus (test code = UA Mucus) Few /LPF [facility] AND [id number] 16:34:00 Test Item Value Reference Range Interpretation Comments UA Amorph Destiny (test code = Occasional /HPF UA Amorph Destiny) [facility] AND [id number] 16:34:00 Test Item Value Reference Range Interpretation Comments UA Leuk Est (test Negative (07/25/16 10:34 code = UA Leuk Est) AM) [facility] AND [id number] 16:34:00 Test Item Value Reference Range Interpretation Comments UA Nitrite (test code Negative (07/25/16 10:34 = UA Nitrite) AM) [facility] AND [id number] 16:34:00 Test Item Value Reference Range Interpretation Comments UA RBC (test code = 2 See_Comment [Automa rohit message] The UA RBC) system which ge nerated this result transmit rohit reference range : <=2. The reference range was not used to interpr et this result as reji l/abnormal. [facility] AND [id number] 16:34:00 Test Item Value Reference Range Interpretation Comments UA WBC (test code = 6 See_Comment [Automa rohit message] The UA WBC) system which ge nerated this result transmit rohit reference range : <=5. The reference range was not used to interpr et this result as reji l/abnormal. [facility] AND [id number] 16:34:00 Test Item Value Reference Range Interpretation Comments UA Urobilinogen (test code = UA 2.0 0.1-1.0 Urobilinogen) [facility] AND [id number] 16:34:00 Test Item Value Reference Range Interpretation Comments UA Ketones (test code = UA Negative mg/dL Ketones) [facility] AND [id number] 16:34:00 Test Item Value Reference Range Interpretation Comments UA Glucose (test code = UA Glucose) 70 mg/dL [facility] AND [id number] 16:34:00 Test Item Value Reference Range Interpretation Comments UA Blood (test code = Negative (07/25/16 10:34 UA Blood) AM) [facility] AND [id number] 16:34:00 Test Item Value Reference Range Interpretation Comments UA Bili (test code = Negative *NA*(07/25/16 UA Bili) 10:34 AM) [facility] [id number] 16:34:00 Test Item Value Reference Range Interpretation Comments UA Protein (test code = UA >=300 mg/dL Protein) [facility] AND [id number] 16:34:00 Test Item Value Reference Range Interpretation Comments UA Spec Grav (test code = UA Spec Grav) 1.012 [facility] AND [id number] 16:34:00 Test Item Value Reference Range Interpretation Comments UA pH (test code = UA pH) 5.5 5.0-8.0 [facility] AND [id number] 16:34:00 Test Item Value Reference Range Interpretation Comments UA Turbidity (test code Slight *ABN*(07/25/16 = UA Turbidity) 10:34 AM) [facility] AND [id number] 16:34:00 Test Item Value Reference Range Interpretation Comments UA Color (test code = Dark Yellow *NA*(07/25/16 UA Color) 10:34 AM) [facility] AND [id number] 16:34:00 Test Item Value Reference Range Interpretation Comments UA Gran Cast (test code = UA Gran Cast) 9 [facility] [id number] 16:34:00 Test Item Value Reference Range Interpretation Comments U Sodium (test code = U Sodium) 30 [facility] [id number] 16:34:00 Test Item Value Reference Range Interpretation Comments U Prot/Creat (test code = U Prot/Creat) 3.1 [facility] [id number] 16:34:00 Test Item Value Reference Range Interpretation Comments U Protein (test code = U Protein) 420.9 [facility] [id number] 16:34:00 Test Item Value Reference Range Interpretation Comments U Creatinine (test code = U 136.00 Creatinine) [facility] [id number] 08:55:00 Test Item Value Reference Range Interpretation Comments Magnesium Lvl (test code = Magnesium 2.0 1.8-2.4 Lvl) [facility]CHE[facility] [id number] 08:55:00 Test Item Value Reference Range Interpretation Comments Phosphorus (test code = Phosphorus) 5.2 2.5-4.5 [facility] [id number] 17:29:00 Test Item Value Reference Range Interpretation Comments Troponin-I (test code 0.28 See_Comment [Auto mated message] The = Troponin-I) system which g enerated this result transmit roiht reference range : <=0.40. The reference r leo was not used to interpr et this result as reji l/abnormal. [facility] [id number] 17:29:00 Test Item Value Reference Range Interpretation Comments Total CK (test code = Total CK) 2616 12-191 [facility]Ap[facility] [id number] 17:29:00 Test Item Value Reference Range Interpretation Comments Troponin-T (test code 0.144 See_Comment [Auto mated message] The = Troponin-T) system which g enerated this result transmit rohit reference range : <=0.100. The reference r leo was not used to interpr et this result as reji l/abnormal. [facility]Ap[facility] [id number] 17:29:00 Test Item Value Reference Range Interpretation Comments CK MB Index (test 0.2 See_Comment [Automate d message] The code = CK MB Index) system w [facility] generated this result transmit rohit reference range : <=2.5. The reference range was not used to interpr et this result as reji l/abnormal. [facility] HospitalLockerDome [id number] 17:29:00 Test Item Value Reference Range Interpretation Comments CK MB (test code = CK MB) 6.3 0.5-3.6 [facility]Ap[facility] [id number] 11:20:00 Test Item Value Reference Range Interpretation Comments Troponin-I (test code 0.38 See_Comment [Auto mated message] The = Troponin-I) system which g enerated this result transmit rohit reference range : <=0.40. The reference r leo was not used to interpr et this result as reji l/abnormal. [facility] Hospital[facility] Notes2017-02-03 11:20:00 Test Item Value Reference Range Interpretation Comments Troponin-T (test code 0.173 See_Comment [Auto mated message] The = Troponin-T) system which g enerated this result transmit rohit reference range : <=0.100. The reference r leo was not used to interpr et this result as reji l/abnormal. [facility] [employer]2017-02-03 11:20:00 Test Item Value Reference Range Interpretation Comments CK MB Index (test 0.2 See_Comment [Automate d message] The code = CK MB Index) system w [facility] generated this result transmit rohit reference range : <=2.5. The reference range was not used to interpr et this result as reji l/abnormal. [facility] [employer]2017-02-03 11:20:00 Test Item Value Reference Range Interpretation Comments CK MB (test code = CK MB) 5.6 0.5-3.6 [facility] [employer]2017-02-03 11:20:00 Test Item Value Reference Range Interpretation Comments Phosphorus (test code = Phosphorus) 5.5 2.5-4.5 [facility] [employer]2017-02-03 06:18:00 Test Item Value Reference Range Interpretation Comments BNP (test code = BNP) 701 [facility] [employer]2017-02-03 04:59:27 Test Item Value Reference Range Interpretation Comments Troponin-I (test code 0.57 See_Comment [Auto mated message] The = Troponin-I) system which g enerated this result transmit rohit reference range : <=0.40. The reference r leo was not used to interpr et this result as reji l/abnormal. [facility] [employer]2016-12-26 10:22:00 Test Item Value Reference Range Interpretation Comments BNP (test code = BNP) 526 [facility] [employer]2016-12-26 10:22:00 Test Item Value Reference Range Interpretation Comments Magnesium Lvl (test code = Magnesium 2.1 1.8-2.4 Lvl) [facility]2016-12-26 10:22:00 Test Item Value Reference Range Interpretation Comments Glucose Lvl (test code = Glucose Lvl) 117 70-99 [facility] [employer] [id number] 10:22:00 Test Item Value Reference Range Interpretation Comments BUN (test code = BUN) 41 7-22 [facility]2016-12-26 10:22:00 Test Item Value Reference Range Interpretation Comments Creatinine Lvl (test code = Creatinine 2.00 0.50-1.40 Lvl) [facility]2016-12-26 10:22:00 Test Item Value Reference Range Interpretation Comments Calcium Lvl (test code = Calcium Lvl) 9.0 8.5-10.5 [facility]2016-12-26 10:22:00 Test Item Value Reference Range Interpretation Comments Chloride Lvl (test code = Chloride Lvl) 102 95-109 [facility]2016-12-26 10:22:00 Test Item Value Reference Range Interpretation Comments CO2 (test code = CO2) 33 24-32 [facility]2016-12-26 10:22:00 Test Item Value Reference Range Interpretation Comments Sodium Lvl (test code = Sodium Lvl) 144 135-145 [facility]2016-12-26 10:22:00 Test Item Value Reference Range Interpretation Comments Potassium Lvl (test code = Potassium 4.0 3.5-5.1 Lvl) [facility]2016-12-26 10:22:00 Test Item Value Reference Range Interpretation Comments eGFR (test code = eGFR) 32 [facility]2016-12-26 10:22:00 Test Item Value Reference Range Interpretation Comments AGAP (test code = AGAP) 13.0 10.0-20.0 [facility]2016-12-26 10:22:00 Test Item Value Reference Range Interpretation Comments Phosphorus (test code = Phosphorus) 4.6 2.5-4.5 [facility]WtlbnpePDCWGYZTUG5086-16-31 10:22:00 Test Item Value Reference Range Interpretation Comments RBC (test code = RBC) 3.68 4.20-5.40 [facility] CenterQopswtpKCVMGNXMWG1987-99-56 10:22:00 Test Item Value Reference Range Interpretation Comments Hgb (test code = Hgb) 9.9 12.0-16.0 [facility] CenterPyiujgyKDVSRQAQMO9973-24-31 10:22:00 Test Item Value Reference Range Interpretation Comments MCH (test code = MCH) 26.8 pg 27.0-31.0 [facility] CenterSenksilPTOWWECRKG7857-54-99 10:22:00 Test Item Value Reference Range Interpretation Comments MCHC (test code = MCHC) 34.2 32.0-36.0 [facility] CenterShaetmuYITWTYIYIY0666-25-57 10:22:00 Test Item Value Reference Range Interpretation Comments MCV (test code = MCV) 78.3 80.0-98.0 [facility] CenterRpxfwrsKUSEJMENBS9746-27-05 10:22:00 Test Item Value Reference Range Interpretation Comments Hct (test code = Hct) 28.8 36.0-48.0 [facility] CenterMscacmpSXJCSBEULF9434-40-28 10:22:00 Test Item Value Reference Range Interpretation Comments Platelet (test code = Platelet) 191 133-450 [facility] CenterOhsoqdvIBGDMZIDQU7162-86-55 10:22:00 Test Item Value Reference Range Interpretation Comments MPV (test code = MPV) 9.5 7.4-10.4 [facility] CenterNjgdxtgJHVJCTMCWY0711-29-95 10:22:00 Test Item Value Reference Range Interpretation Comments RDW (test code = RDW) 15.3 11.5-14.5 [facility] CenterNrkkdlrRDAOCMUYJZ1183-89-50 10:22:00 Test Item Value Reference Range Interpretation Comments WBC (test code = WBC) 5.6 3.7-10.4 [facility] CenterPqhsrkzJZPSCJDSOD5632-16-19 10:22:00 Test Item Value Reference Range Interpretation Comments Eosinophils # (test code 0.5 See_Comment [A utomated message] The = Eosinophils #) system whic h generated this result tra nsmitted reference range : <=0.5. The reference r leo was not used to int erpret this result as normal/abnormal . [facility] CenterNxyafmqRCKPCDPTCB9766-33-71 10:22:00 Test Item Value Reference Range Interpretation Comments Microcyte (test code = 1+ *ABN*(06/15/16 Microcyte) 4:22 AM) [facility] CenterPbpnwifFIMXAYDQND2136-41-35 10:22:00 Test Item Value Reference Range Interpretation Comments Basophils # (test code 0.1 See_Comment [Aut omated message] The = Basophils #) system which generated this result tra nsmitted reference range : <=0.2. The reference r leo was not used to int erpret this result as normal/abnormal . [facility] CenterQuddrmuAMUDTFZWTS2620-43-31 10:22:00 Test Item Value Reference Range Interpretation Comments Lymphocytes (test code = Lymphocytes) 33.5 20.0-40.0 [facility] CenterZdpkblwXZMJJFRJLU5864-11-72 10:22:00 Test Item Value Reference Range Interpretation Comments Segs (test code = Segs) 47.6 45.0-75.0 [facility] CenterKdxqptmEHHBCPVPAT9753-69-09 10:22:00 Test Item Value Reference Range Interpretation Comments Monocytes (test code = Monocytes) 8.4 2.0-12.0 [facility] CenterPnlrgveSRKIWRGUEI1979-99-35 10:22:00 Test Item Value Reference Range Interpretation Comments Eosinophils (test code = 9.4 See_Comment [A utomated message] The Eosinophils) system which ge nerated this result tra nsmitted reference range : <=4.0. The reference r leo was not used to int erpret this result as normal/abnormal . [facility] CenterWtcxbprDRDGMCFLKB8878-32-97 10:22:00 Test Item Value Reference Range Interpretation Comments Segs-Bands # (test code = Segs-Bands #) 2.6 1.5-8.1 [place] 733846-12-26 10:22:00 Test Item Value Reference Range Interpretation Comments Lymphocytes # (test code = Lymphocytes 1.9 1.0-5.5 #) [facility] CenterIvyhlklYZASIPMIKL9080-21-39 10:22:00 Test Item Value Reference Range Interpretation Comments Basophils (test code = 1.1 See_Comment [Aut omated message] The Basophils) system which ge nerated this result tra nsmitted reference range : <=1.0. The reference r leo was not used to int erpret this result as normal/abnormal . [facility] CenterCfewshxCNHXBBTSSF7589-54-10 10:22:00 Test Item Value Reference Range Interpretation Comments Monocytes # (test code 0.5 See_Comment [Aut omated message] The = Monocytes #) system which generated this result tra nsmitted reference range : <=0.8. The reference r leo was not used to int erpret this result as normal/abnormal . [facility]2016-12-25 11:03:00 Test Item Value Reference Range Interpretation Comments Phosphorus (test code = Phosphorus) 4.8 2.5-4.5 [facility]2016-12-25 11:03:00 Test Item Value Reference Range Interpretation Comments Magnesium Lvl (test code = Magnesium 2.0 1.8-2.4 Lvl) [facility]2016-12-25 11:03:00 Test Item Value Reference Range Interpretation Comments eGFR (test code = eGFR) 32 [facility]2016-12-25 11:03:00 Test Item Value Reference Range Interpretation Comments Chloride Lvl (test code = Chloride Lvl) 101 95-109 [facility]2016-12-25 11:03:00 Test Item Value Reference Range Interpretation Comments Potassium Lvl (test code = Potassium 4.4 3.5-5.1 Lvl) [facility]2016-12-25 11:03:00 Test Item Value Reference Range Interpretation Comments BUN (test code = BUN) 37 7-22 [facility]2016-12-25 11:03:00 Test Item Value Reference Range Interpretation Comments Glucose Lvl (test code = Glucose Lvl) 119 70-99 [facility]2016-12-25 11:03:00 Test Item Value Reference Range Interpretation Comments Creatinine Lvl (test code = Creatinine 2.00 0.50-1.40 Lvl) [facility]2016-12-25 11:03:00 Test Item Value Reference Range Interpretation Comments Sodium Lvl (test code = Sodium Lvl) 142 135-145 [facility]2016-12-25 11:03:00 Test Item Value Reference Range Interpretation Comments Calcium Lvl (test code = Calcium Lvl) 8.7 8.5-10.5 [facility]2016-12-25 11:03:00 Test Item Value Reference Range Interpretation Comments CO2 (test code = CO2) 32 24-32 [facility]2016-12-25 11:03:00 Test Item Value Reference Range Interpretation Comments AGAP (test code = AGAP) 13.4 10.0-20.0 [facility] CenterMjdsjvtMHFBDZAQFU9030-88-35 11:03:00 Test Item Value Reference Range Interpretation Comments Eosinophils (test code = 10.3 See_Comment [A utomated message] The Eosinophils) system which ge nerated this result tra nsmitted reference range : <=4.0. The reference r leo was not used to int erpret this result as normal/abnormal . [facility] CenterWfvijcbKFJVKOWUUM9117-54-28 11:03:00 Test Item Value Reference Range Interpretation Comments Basophils # (test code 0.1 See_Comment [Aut omated message] The = Basophils #) system which generated this result tra nsmitted reference range : <=0.2. The reference r leo was not used to int erpret this result as normal/abnormal . [facility] CenterJnilgdlVYQOIFZNBW3324-75-44 11:03:00 Test Item Value Reference Range Interpretation Comments Eosinophils # (test code 0.5 See_Comment [A utomated message] The = Eosinophils #) system whic h generated this result tra nsmitted reference range : <=0.5. The reference r leo was not used to int erpret this result as normal/abnormal . [facility] CenterVnhdrexUWKDOTWZSB9572-29-91 11:03:00 Test Item Value Reference Range Interpretation Comments Monocytes # (test code 0.5 See_Comment [Aut omated message] The = Monocytes #) system which generated this result tra nsmitted reference range : <=0.8. The reference r leo was not used to int erpret this result as normal/abnormal . [facility] CenterIamcyqlFYGNSWWVYK4210-07-03 11:03:00 Test Item Value Reference Range Interpretation Comments Segs-Bands # (test code = Segs-Bands #) 2.1 1.5-8.1 [facility] CenterLmdkwefZEAPXYACTD7205-25-19 11:03:00 Test Item Value Reference Range Interpretation Comments Basophils (test code = 1.2 See_Comment [Aut omated message] The Basophils) system which ge nerated this result tra nsmitted reference range : <=1.0. The reference r leo was not used to int erpret this result as normal/abnormal . [facility] CenterKkgrhqtWPPBETZWCN7012-67-58 11:03:00 Test Item Value Reference Range Interpretation Comments Lymphocytes # (test code = Lymphocytes 1.9 1.0-5.5 #) [facility] CenterLqpoycbVMFMBCGFIK2759-38-48 11:03:00 Test Item Value Reference Range Interpretation Comments Segs (test code = Segs) 42.5 45.0-75.0 [facility] CenterZgetmxkSNOOGNQNDF9717-01-88 11:03:00 Test Item Value Reference Range Interpretation Comments Lymphocytes (test code = Lymphocytes) 37.0 20.0-40.0 [facility] CenterPbuxntaENIBENFFHR1385-33-73 11:03:00 Test Item Value Reference Range Interpretation Comments Monocytes (test code = Monocytes) 9.0 2.0-12.0 [facility] CenterXydiewmMIKOQENBWD1125-69-53 11:03:00 Test Item Value Reference Range Interpretation Comments MPV (test code = MPV) 9.8 7.4-10.4 [facility] CenterJuziltvBOYVGEJSYI9511-06-19 11:03:00 Test Item Value Reference Range Interpretation Comments WBC (test code = WBC) 5.0 3.7-10.4 [facility]yyoboqUNFKCEQQUC1626-37-84 11:03:00 Test Item Value Reference Range Interpretation Comments RBC (test code = RBC) 3.57 4.20-5.40 [facility] HealthQjllirhVELISUVMTY1384-41-66 11:03:00 Test Item Value Reference Range Interpretation Comments Hgb (test code = Hgb) 9.4 12.0-16.0 [facility] CenterUccjlxgLKLTTXIRON3841-55-34 11:03:00 Test Item Value Reference Range Interpretation Comments Hct (test code = Hct) 28.5 36.0-48.0 [facility] CenterQbwxtfeOLTIZJEACD2784-02-38 11:03:00 Test Item Value Reference Range Interpretation Comments Platelet (test code = Platelet) 183 133-450 [facility] CenterHiqnkisUQVPFQJTKZ3686-23-13 11:03:00 Test Item Value Reference Range Interpretation Comments MCV (test code = MCV) 79.9 80.0-98.0 [facility] CenterTquhkygRJGOJOYJQU9685-73-42 11:03:00 Test Item Value Reference Range Interpretation Comments MCH (test code = MCH) 26.3 pg 27.0-31.0 [facility] CenterPmqmbedNMMFDPOURF9204-47-48 11:03:00 Test Item Value Reference Range Interpretation Comments MCHC (test code = MCHC) 33.0 32.0-36.0 [facility] CenterIipaiyyJGNSJVSYMX5639-74-78 11:03:00 Test Item Value Reference Range Interpretation Comments RDW (test code = RDW) 15.9 11.5-14.5 [facility] [id number] 10:26:00 Test Item Value Reference Range Interpretation Comments U Prot/Creat (test code = U Prot/Creat) 6.9 [facility] AZLI8099-12-49 10:26:00 Test Item Value Reference Range Interpretation Comments U Creatinine (test code = U Creatinine) 19.30 [facility] [id number] 10:26:00 Test Item Value Reference Range Interpretation Comments U Protein (test code = U Protein) 133.1 [facility] CenterGunscjnGBSOKPAMDC4436-64-01 09:20:00 Test Item Value Reference Range Interpretation Comments MPV (test code = MPV) 9.7 7.4-10.4 [facility] CenterPtralpnRSCOKKQJFE6173-85-07 09:20:00 Test Item Value Reference Range Interpretation Comments Platelet (test code = Platelet) 184 133-450 [facility] CenterVaaddhcJMACGCKTMO2742-62-97 09:20:00 Test Item Value Reference Range Interpretation Comments RDW (test code = RDW) 15.9 11.5-14.5 [facility] CenterXwnapswQEHFMSPWWI5304-03-00 09:20:00 Test Item Value Reference Range Interpretation Comments MCV (test code = MCV) 79.3 80.0-98.0 [facility] CenterCkirybrVMRWBWVKFA6683-41-51 09:20:00 Test Item Value Reference Range Interpretation Comments MCHC (test code = MCHC) 33.0 32.0-36.0 [facility] CenterJjlyxwsVLSUEDPAQX5607-53-83 09:20:00 Test Item Value Reference Range Interpretation Comments MCH (test code = MCH) 26.2 pg 27.0-31.0 [facility] CenterFwhlyciUYWNAKOQVA3799-58-29 09:20:00 Test Item Value Reference Range Interpretation Comments Hct (test code = Hct) 29.4 36.0-48.0 [facility] CenterTlewlbcMOMAMZKLNY1043-94-58 09:20:00 Test Item Value Reference Range Interpretation Comments Hgb (test code = Hgb) 9.7 12.0-16.0 [facility] CenterOutyyclOYGBIKJNRA5076-35-80 09:20:00 Test Item Value Reference Range Interpretation Comments RBC (test code = RBC) 3.70 4.20-5.40 [facility] CenterDmnxgeaASWMAZQJRG4259-96-10 09:20:00 Test Item Value Reference Range Interpretation Comments WBC (test code = WBC) 5.7 3.7-10.4 [facility] CenterMrjdxreMAFRMYKWJD1440-83-72 09:20:00 Test Item Value Reference Range Interpretation Comments Basophils # (test code 0.1 See_Comment [Aut omated message] The = Basophils #) system which generated this result tra nsmitted reference range : <=0.2. The reference r leo was not used to int erpret this result as normal/abnormal . [facility] CenterYqhffsbLIMRWUJEDR0906-18-96 09:20:00 Test Item Value Reference Range Interpretation Comments Lymphocytes # (test code = Lymphocytes 2.2 1.0-5.5 #) [facility] CenterVhaefvyRSZLOYGFOJ7620-47-72 09:20:00 Test Item Value Reference Range Interpretation Comments Eosinophils # (test code 0.5 See_Comment [A utomated message] The = Eosinophils #) system whic h generated this result tra nsmitted reference range : <=0.5. The reference r leo was not used to int erpret this result as normal/abnormal . [facility] CenterYkhcasbZTFNKJCKIV2868-42-82 09:20:00 Test Item Value Reference Range Interpretation Comments Monocytes # (test code 0.5 See_Comment [Aut omated message] The = Monocytes #) system which generated this result tra nsmitted reference range : <=0.8. The reference r leo was not used to int erpret this result as normal/abnormal . [facility] CenterGkmufgvTQIZLJRIBG7058-61-18 09:20:00 Test Item Value Reference Range Interpretation Comments Basophils (test code = 1.1 See_Comment [Aut omated message] The Basophils) system which ge nerated this result tra nsmitted reference range : <=1.0. The reference r leo was not used to int erpret this result as normal/abnormal . [facility] CenterTsxbtarNPFORAUGLN8040-44-64 09:20:00 Test Item Value Reference Range Interpretation Comments Segs-Bands # (test code = Segs-Bands #) 2.3 1.5-8.1 [facility] CenterVrzixniZBUAUTAHXT9033-59-35 09:20:00 Test Item Value Reference Range Interpretation Comments Eosinophils (test code = 9.5 See_Comment [A utomated message] The Eosinophils) system which ge nerated this result tra nsmitted reference range : <=4.0. The reference r leo was not used to int erpret this result as normal/abnormal . [facility] CenterCqvjanfMWYVKADMAF9028-84-38 09:20:00 Test Item Value Reference Range Interpretation Comments Monocytes (test code = Monocytes) 9.0 2.0-12.0 [facility] CenterVqakwfmQCDKEMVJYK3176-30-45 09:20:00 Test Item Value Reference Range Interpretation Comments Lymphocytes (test code = Lymphocytes) 38.9 20.0-40.0 [facility] CenterIgwvxzjEVZNTESQDY1698-27-26 09:20:00 Test Item Value Reference Range Interpretation Comments Segs (test code = Segs) 41.5 45.0-75.0 [facility]2016-12-24 06:34:00 Test Item Value Reference Range Interpretation Comments Magnesium Lvl (test code = Magnesium 1.7 1.8-2.4 Lvl) [facility]2016-12-24 06:34:00 Test Item Value Reference Range Interpretation Comments Phosphorus (test code = Phosphorus) 4.2 2.5-4.5 [facility]XkflmstJTHTSWOPPSNW4963-95-04 06:34:00 Test Item Value Reference Range Interpretation Comments AGAP (test code = AGAP) 14.3 10.0-20.0 [facility] HospitalMjhqupfEBLDKLIXDIZL3732-64-01 06:34:00 Test Item Value Reference Range Interpretation Comments eGFR (test code = eGFR) 41 [facility] HospitalThyufgmKVNVNSXXQHNY5917-82-16 06:34:00 Test Item Value Reference Range Interpretation Comments Chloride Lvl (test code = Chloride Lvl) 103 95-109 [facility] HospitalCpkqfnsDVLXZIESEUKC4121-66-97 06:34:00 Test Item Value Reference Range Interpretation Comments Calcium Lvl (test code = Calcium Lvl) 8.5 8.5-10.5 [facility] HospitalFytidgzSFQKVDJXNYNM3992-56-89 06:34:00 Test Item Value Reference Range Interpretation Comments CO2 (test code = CO2) 32 24-32 [facility] HospitalNqnzjmfWQWHCYPTEEXN7006-20-89 06:34:00 Test Item Value Reference Range Interpretation Comments Glucose Lvl (test code = Glucose Lvl) 173 70-99 [facility] HospitalOlrvqsfIAZDVMPFTEZI6031-23-98 06:34:00 Test Item Value Reference Range Interpretation Comments BUN (test code = BUN) 37 7-22 [facility] HospitalNvoldqhFZXWGBZHNEDA2249-86-42 06:34:00 Test Item Value Reference Range Interpretation Comments Creatinine Lvl (test code = Creatinine 1.63 0.50-1.40 Lvl) [facility] HospitalVhofzkzBSGFDDHBOYVP5645-13-76 06:34:00 Test Item Value Reference Range Interpretation Comments Potassium Lvl (test code = Potassium 4.3 3.5-5.1 Lvl) [facility] HospitalXuoycgmQMYXRYSWMKOZ4631-80-29 06:34:00 Test Item Value Reference Range Interpretation Comments Sodium Lvl (test code = Sodium Lvl) 145 135-145 [facility] LTNDM7620-57-96 16:21:00 Test Item Value Reference Range Interpretation Comments Ammonia (test code = Ammonia) 48.0 [facility] HospitalYzphcwbOHYMOFZVEN8684-95-57 14:56:00 Test Item Value Reference Range Interpretation Comments IVETTE Interp (test code Pattern appears = IVETTE Interp) Nucleolar. [facility] HospitalZrtokokSFGSMAZNHY2425-05-48 14:56:00 Test Item Value Reference Range Interpretation Comments IVETTE Titer (test code = 1:40 *ABN*(06/11/16 [employer]ETTE Titer) 8:56 AM) [facility] HospitalTgyilhrUIUFFRRGLC8318-03-89 14:56:00 Test Item Value Reference Range Interpretation Comments Hep Bs Ag (test code Negative *NA*(06/11/16 = Hep Bs Ag) 8:56 AM) [facility] HospitalApuojcoZRHAWKSMCF1908-43-19 14:56:00 Test Item Value Reference Range Interpretation Comments Hep C Ab (test code = Negative *NA*(06/11/16 Hep C Ab) 8:56 AM) [facility] HospitalIjnzselGUNNQQTIVO9136-94-89 14:56:00 Test Item Value Reference Range Interpretation Comments Hep B Core IgM (test Negative *NA*(06/11/16 code = Hep B Core 8:56 AM) IgM) [facility] HospitalCecdzyzKJNOKZQAIY7850-10-58 14:56:00 Test Item Value Reference Range Interpretation Comments Hep A IgM (test code Negative *NA*(06/11/16 = Hep A IgM) 8:56 AM) [facility] HospitalOfuyhonBXBUGSHTPT3241-65-06 14:56:00 Test Item Value Reference Range Interpretation Comments HIV Ag/Ab 4th Gen Negative *NA*(06/11/16 (test code = HIV 8:56 AM) Ag/Ab 4th Gen) [facility] HospitalKmmyineQOZTSLRYIZ8441-77-36 14:56:00 Test Item Value Reference Range Interpretation Comments IVETTE (test code = IVETTE) Positive *ABN*(06/11/16 8:56 AM) [facility] YPAXQ3326-48-59 10:42:00 Test Item Value Reference Range Interpretation Comments Bili Total (test code = Bili Total) 0.1 0.2-1.3 [facility] BJQNA4745-47-28 10:42:00 Test Item Value Reference Range Interpretation Comments Total Protein (test code = Total 5.2 6.4-8.4 Protein) [facility]2016-12-22 10:42:00 Test Item Value Reference Range Interpretation Comments Albumin Lvl (test code = Albumin Lvl) 1.6 3.5-5.0 [facility]2016-12-22 10:42:00 Test Item Value Reference Range Interpretation Comments B/C Ratio (test code = B/C Ratio) 20 6-25 [facility]2016-12-22 10:42:00 Test Item Value Reference Range Interpretation Comments Globulin (test code = Globulin) 3.6 2.7-4.2 [facility]2016-12-22 10:42:00 Test Item Value Reference Range Interpretation Comments A/G Ratio (test code = A/G Ratio) 0.4 0.7-1.6 [facility]2016-12-22 10:42:00 Test Item Value Reference Range Interpretation Comments Alk Phos (test code = Alk Phos) 74 39-136 [facility]2016-12-22 10:42:00 Test Item Value Reference Range Interpretation Comments ALT (test code = ALT) 14 See_Comment [Auto mated message] The system which ge nerated this result transmit rohit reference range : <=65. The reference range was not used to interpr et this result as reji l/abnormal. [facility]2016-12-22 10:42:00 Test Item Value Reference Range Interpretation Comments AST (test code = AST) 13 See_Comment [Auto mated message] The system which ge nerated this result transmit rohit reference range : <=37. The reference range was not used to interpr et this result as reji l/abnormal. [facility] CenterQaqorcaIEOKVIIRIQ7480-42-18 10:42:00 Test Item Value Reference Range Interpretation Comments INR (test code = INR) 1.06 0.85-1.17 [facility] CenterEjigcyeWZMGXEQEKA3026-48-22 10:42:00 Test Item Value Reference Range Interpretation Comments PT (test code = PT) 14.0 s 12.0-14.7 [facility] CenterFmgzgnuYVOOMKEYDG5086-23-01 10:42:00 Test Item Value Reference Range Interpretation Comments PTT (test code = PTT) 36.4 s 22.9-35.8 [facility] BBDRGDKGS9433-99-67 10:42:00 Test Item Value Reference Range Interpretation Comments Hgb A1C (test code = Hgb A1C) 10.5 [facility] [employer]2016-12-22 02:08:00 Test Item Value Reference Range Interpretation Comments CK MB Index (test 1.8 See_Comment [Automate d message] The code = CK MB Index) system w [facility] generated this result transmit rohit reference range : <=2.5. The reference range was not used to interpr et this result as reji l/abnormal. [facility]2016-12-22 02:08:00 Test Item Value Reference Range Interpretation Comments CK MB (test code = CK MB) 2.9 0.5-3.6 [facility] [employer]2016-12-22 02:08:00 Test Item Value Reference Range Interpretation Comments Troponin-T (test code 0.061 See_Comment [Auto mated message] The = Troponin-T) system which g enerated this result transmit rohit reference range : <=0.100. The reference r leo was not used to interpr et this result as reji l/abnormal. [facility] [employer]2016-12-22 02:08:00 Test Item Value Reference Range Interpretation Comments Total CK (test code = Total CK) 159 12-191 [facility] [employer]2016-12-22 02:08:00 Test Item Value Reference Range Interpretation Comments Troponin-I (test code no gt See_Comment [Auto mated message] The = Troponin-I) system which g enerated this result transmit rohit reference range : <=0.40. The reference r leo was not used to interpr et this result as reji l/abnormal. [employer]2016-12-22 02:08:00 Test Item Value Reference Range Interpretation Comments Bili Total (test code = Bili Total) 0.2 0.2-1.3 [facility] iConclude2016-12-22 02:08:00 Test Item Value Reference Range Interpretation Comments Bili Direct (test code 0.1 See_Comment [Aut omated message] The = Bili Direct) system which generated this result tra nsmitted reference range : <=0.3. The reference r leo was not used to int erpret this result as reji l/abnormal. [employer]2016-12-22 02:08:00 Test Item Value Reference Range Interpretation Comments Bili Indirect (test 0.1 See_Comment [Automa rohit message] The code = Bili Indirect) system which generated this result tra nsmitted reference range : <=1.0. The reference r leo was not used to int erpret this result as normal/abnormal . [facility] [id number] 02:08:00 Test Item Value Reference Range Interpretation Comments Total Protein (test code = Total 5.7 6.4-8.4 Protein) [facility] [id number] 02:08:00 Test Item Value Reference Range Interpretation Comments A/G Ratio (test code = A/G Ratio) 0.5 0.7-1.6 [facility] [id number] 02:08:00 Test Item Value Reference Range Interpretation Comments Albumin Lvl (test code = Albumin Lvl) 1.8 3.5-5.0 [facility] [id number] 02:08:00 Test Item Value Reference Range Interpretation Comments Globulin (test code = Globulin) 3.9 2.7-4.2 [facility] [id number] 02:08:00 Test Item Value Reference Range Interpretation Comments Alk Phos (test code = Alk Phos) 99 39-136 [facility] [id number] 02:08:00 Test Item Value Reference Range Interpretation Comments AST (test code = AST) 21 See_Comment [Auto mated message] The system which ge nerated this result transmit rohit reference range : <=37. The reference range was not used to interpr et this result as reji l/abnormal. [facility] [employer] [id number] 02:08:00 Test Item Value Reference Range Interpretation Comments ALT (test code = ALT) 17 See_Comment [Auto mated message] The system which ge nerated this result transmit rohit reference range : <=65. The reference range was not used to interpr et this result as reji l/abnormal. [facility] HospitalXiaoying [id number] 02:08:00 Test Item Value Reference Range Interpretation Comments UDS Note (test code = See Note *NA*(06/10/16 UDS Note) 8:08 PM) [facility] [employer] [id number] 02:08:00 Test Item Value Reference Range Interpretation Comments U Propoxyph Scr (test Negative *NA*(06/10/16 code = U Propoxyph Scr) 8:08 PM) [facility] [id number] 02:08:00 Test Item Value Reference Range Interpretation Comments U Opiate Scr (test Negative *NA*(06/10/16 code = U Opiate Scr) 8:08 PM) [facility] [id number] 02:08:00 Test Item Value Reference Range Interpretation Comments U Methadone Scr (test Negative *NA*(06/10/16 code = U Methadone Scr) 8:08 PM) [facility] [id number] 02:08:00 Test Item Value Reference Range Interpretation Comments U Phencyc Scr (test Negative *NA*(06/10/16 code = U Phencyc Scr) 8:08 PM) [facility] [id number] 02:08:00 Test Item Value Reference Range Interpretation Comments U Cannab Scr (test Negative *NA*(06/10/16 code = U Cannab Scr) 8:08 PM) [facility] [id number] 02:08:00 Test Item Value Reference Range Interpretation Comments U Amph Scr (test code Negative *NA*(06/10/16 = U Amph Scr) 8:08 PM) [facility] [id number] 02:08:00 Test Item Value Reference Range Interpretation Comments U Kelly Scr (test code Negative *NA*(06/10/16 = U Kelly Scr) 8:08 PM) [facility] [id number] 02:08:00 Test Item Value Reference Range Interpretation Comments U Benzodia Scr (test Negative *NA*(06/10/16 code = U Benzodia Scr) 8:08 PM) [facility] [id number] 02:08:00 Test Item Value Reference Range Interpretation Comments U Cocaine Scr (test Negative *NA*(06/10/16 code = U Cocaine Scr) 8:08 PM) [facility] [id number] 02:08:00 Test Item Value Reference Range Interpretation Comments LDL (Calculated) (test code = LDL 75 (Calculated)) [facility] NkhtpchTFMWWI4049-72-47 02:08:00 Test Item Value Reference Range Interpretation Comments VLDL (test code = VLDL) 27 [facility]JtuvemoTWUNEO3653-71-13 02:08:00 Test Item Value Reference Range Interpretation Comments Chol (test code = Chol) 133 [facility] HospitalVgznqorKBCMWN5234-99-79 02:08:00 Test Item Value Reference Range Interpretation Comments Trig (test code = Trig) 133 [facility] HospitalNwlppuqCTQSQQ0971-05-94 02:08:00 Test Item Value Reference Range Interpretation Comments CHD Risk (test code = CHD Risk) 4.29 3.90-5.80 [facility] [id number] 02:08:00 Test Item Value Reference Range Interpretation Comments HDL (test code = HDL) 31 [facility] AND [id number] 02:08:00 Test Item Value Reference Range Interpretation Comments UA Urobilinogen (test code = UA <=1.0 mg/dL 0.1-1.0 Urobilinogen) [facility] AND [id number] 02:08:00 Test Item Value Reference Range Interpretation Comments UA Ketones (test code = UA Negative mg/dL Ketones) [facility] AND [id number] 02:08:00 Test Item Value Reference Range Interpretation Comments UA Glucose (test code = UA Glucose) 300 mg/dL [facility] AND [id number] 02:08:00 Test Item Value Reference Range Interpretation Comments UA Protein (test code = UA >=300 mg/dL Protein) [facility] AND [id number] 02:08:00 Test Item Value Reference Range Interpretation Comments UA pH (test code = UA pH) 6.0 5.0-8.0 [facility] AND [id number] 02:08:00 Test Item Value Reference Range Interpretation Comments UA Nitrite (test code Negative (06/10/16 8:08 = UA Nitrite) PM) [facility] AND [id number] 02:08:00 Test Item Value Reference Range Interpretation Comments UA Blood (test code = Trace *ABN*(06/10/16 UA Blood) 8:08 PM) [facility] AND [id number] 02:08:00 Test Item Value Reference Range Interpretation Comments UA Bili (test code = Negative *NA*(06/10/16 UA Bili) 8:08 PM) [facility] [id number] 02:08:00 Test Item Value Reference Range Interpretation Comments UA Mucus (test code = UA Mucus) Few /LPF [facility] [id number] 02:08:00 Test Item Value Reference Range Interpretation Comments UA RBC (test code = 4 See_Comment [Automa rohit message] The UA RBC) system which ge nerated this result transmit rohit reference range : <=2. The reference range was not used to interpr et this result as reji l/abnormal. [facility] [id number] 02:08:00 Test Item Value Reference Range Interpretation Comments UA Sq Epi (test code = UA Sq Epi) Few /LPF [facility] [id number] 02:08:00 Test Item Value Reference Range Interpretation Comments UA WBC (test code = 5 See_Comment [Automa rohit message] The UA WBC) system which ge nerated this result transmit rohit reference range : <=5. The reference range was not used to interpr et this result as reji l/abnormal. [facility] [id number] 02:08:00 Test Item Value Reference Range Interpretation Comments UA Leuk Est (test code Small *ABN*(06/10/16 = UA Leuk Est) 8:08 PM) [facility] [id number] 02:08:00 Test Item Value Reference Range Interpretation Comments UA Hyal Cast (test 1 See_Comment [Automat ed message] The code = UA Hyal Cast) system which generated this result transmit rohit reference range : <=2. The reference range was not used to interpr et this result as reji l/abnormal. [facility] [id number] 02:08:00 Test Item Value Reference Range Interpretation Comments UA Spec Grav (test code = UA Spec Grav) 1.009 [facility] [id number] 02:08:00 Test Item Value Reference Range Interpretation Comments UA Color (test code = Yellow *NA*(06/10/16 UA Color) 8:08 PM) [facility] [id number] 02:08:00 Test Item Value Reference Range Interpretation Comments UA Turbidity (test code = Clear (06/10/16 8:08 UA Turbidity) PM) [facility] [id number] 02:08:00 Test Item Value Reference Range Interpretation Comments U Preg (test code = U Negative (06/10/16 8:08 Preg) PM) [facility]2016-12-22 02:08:00 Test Item Value Reference Range Interpretation Comments U Protein (test code = U Protein) 375.4 [facility]2016-12-22 02:08:00 Test Item Value Reference Range Interpretation Comments U Prot/Creat (test code = U Prot/Creat) 5.4 [facility] [id number] 02:08:00 Test Item Value Reference Range Interpretation Comments U Creatinine (test code = U Creatinine) 69.80 [facility] HospitalCARNordic WindpowerAC [id number] 16:53:00 Test Item Value Reference Range Interpretation Comments BNP (test code = BNP) 1135 [facility] [id number] 16:53:00 Test Item Value Reference Range Interpretation Comments Troponin-I (test code no gt See_Comment [Auto mated message] The = Troponin-I) system which g enerated this result transmit rohit reference range : <=0.40. The reference r leo was not used to interpr et this result as reji l/abnormal. [facility] [id number] 13:02:00 Test Item Value Reference Range Interpretation Comments Lactic Acid WB (test code = Lactic Acid 0.9 0.5-2.2 WB) [facility] H[id number] 12:29:44 Test Item Value Reference Range Interpretation Comments Valproic Acid Lvl (test code = Valproic 10 50-100 Acid Lvl) [facility] HospitalZehfrrdIVYLNVAZQXUFD7480-10-53 11:21:27 Test Item Value Reference Range Interpretation Comments hCG Tot (test code = hCG Tot) 1 [facility] [id number] 11:21:00 Test Item Value Reference Range Interpretation Comments Albumin Lvl (test code = Albumin Lvl) 3.2 3.5-5.0 [facility] [id number] 11:21:00 Test Item Value Reference Range Interpretation Comments Total Protein (test code = Total 6.6 6.4-8.4 Protein) [facility] [id number] 11:21:00 Test Item Value Reference Range Interpretation Comments Bili Total (test code = Bili Total) 0.6 0.2-1.3 [facility]2015-01-06 11:21:00 Test Item Value Reference Range Interpretation Comments Alk Phos (test code = Alk Phos) 59 39-136 [facility]2015-01-06 11:21:00 Test Item Value Reference Range Interpretation Comments AST (test code = AST) 11 See_Comment [Auto mated message] The system which ge nerated this result transmit rohit reference range : <=37. The reference range was not used to interpr et this result as reji l/abnormal. [facility]2015-01-06 11:21:00 Test Item Value Reference Range Interpretation Comments ALT (test code = ALT) 17 See_Comment [Auto mated message] The system which ge nerated this result transmit rohit reference range : <=65. The reference range was not used to interpr et this result as reji l/abnormal. [facility]2015-01-06 11:21:00 Test Item Value Reference Range Interpretation Comments eGFR (test code = eGFR) 99 [facility]2015-01-06 11:21:00 Test Item Value Reference Range Interpretation Comments Glucose Lvl (test code = Glucose Lvl) 314 70-99 [facility]2015-01-06 11:21:00 Test Item Value Reference Range Interpretation Comments Potassium Lvl (test code = Potassium 3.4 3.5-5.1 Lvl) [facility]2015-01-06 11:21:00 Test Item Value Reference Range Interpretation Comments BUN (test code = BUN) 11 7-22 [facility]2015-01-06 11:21:00 Test Item Value Reference Range Interpretation Comments Creatinine Lvl (test code = Creatinine 0.8 0.5-1.4 Lvl) [facility]2015-01-06 11:21:00 Test Item Value Reference Range Interpretation Comments Sodium Lvl (test code = Sodium Lvl) 134 135-145 [facility]2015-01-06 11:21:00 Test Item Value Reference Range Interpretation Comments Chloride Lvl (test code = Chloride Lvl) 94 95-109 [facility]2015-01-06 11:21:00 Test Item Value Reference Range Interpretation Comments Calcium Lvl (test code = Calcium Lvl) 9.1 8.5-10.5 [facility]2015-01-06 11:21:00 Test Item Value Reference Range Interpretation Comments CO2 (test code = CO2) 24 24-32 [facility]2015-01-06 11:21:00 Test Item Value Reference Range Interpretation Comments A/G Ratio (test code = A/G Ratio) 0.9 0.7-1.6 [facility]2015-01-06 11:21:00 Test Item Value Reference Range Interpretation Comments Globulin (test code = Globulin) 3.4 2.0-4.0 [facility]2015-01-06 11:21:00 Test Item Value Reference Range Interpretation Comments B/C Ratio (test code = B/C Ratio) 14 6-25 [facility]2015-01-06 11:21:00 Test Item Value Reference Range Interpretation Comments AGAP (test code = AGAP) 19.4 10.0-20.0 [facility]2015-01-06 11:21:00 Test Item Value Reference Range Interpretation Comments Lipase Lvl (test code = Lipase Lvl) 81 73-393 [facility]QfspjldGTRWSCLYJH5620-95-29 11:21:00 Test Item Value Reference Range Interpretation Comments Large Plt (test code = Large Plt) Slight [facility] Cent[id number] 11:21:00 Test Item Value Reference Range Interpretation Comments Basophils # (test code 0.0 See_Comment [Aut omated message] The = Basophils #) system which generated this result tra nsmitted reference range : <=0.2. The reference r leo was not used to int erpret this result as normal/abnormal . [facility] CenterNevfavzVYWMPHDMUW7150-42-99 11:21:00 Test Item Value Reference Range Interpretation Comments Anisocyte (test code = 1+ *ABN*(06/26/14 5:21 Anisocyte) AM) [facility] CenterKoecatiHUBHJOISXJ7954-27-02 11:21:00 Test Item Value Reference Range Interpretation Comments Monocytes # (test code 0.6 See_Comment [Aut omated message] The = Monocytes #) system which generated this result tra nsmitted reference range : <=0.8. The reference r leo was not used to int erpret this result as normal/abnormal . [facility] CenterJpiucttJBTKYGGCAA4973-05-68 11:21:00 Test Item Value Reference Range Interpretation Comments Eosinophils # (test code 0.1 See_Comment [A utomated message] The = Eosinophils #) system whic h generated this result tra nsmitted reference range : <=0.5. The reference r leo was not used to int erpret this result as normal/abnormal . [facility] CenterVyeiqgxSPLYDLWWMJ4901-13-01 11:21:00 Test Item Value Reference Range Interpretation Comments Lymphocytes # (test code = Lymphocytes 2.5 1.0-5.5 #) [facility] CenterBctugfhRCMLVRBNKL7805-63-10 11:21:00 Test Item Value Reference Range Interpretation Comments Segs (test code = Segs) 63.3 45.0-75.0 [facility] CenterPwijizcVNMTPQSQVM5868-45-32 11:21:00 Test Item Value Reference Range Interpretation Comments Segs-Bands # (test code = Segs-Bands #) 5.6 1.5-8.1 [facility] CenterKkqfvbdQSEZREYJBH1151-02-44 11:21:00 Test Item Value Reference Range Interpretation Comments Basophils (test code = 0.0 See_Comment [Aut omated message] The Basophils) system which ge nerated this result tra nsmitted reference range : <=1.0. The reference r leo was not used to int erpret this result as normal/abnormal . [facility] CenterXuzrommRJWUZHLRAD3159-73-32 11:21:00 Test Item Value Reference Range Interpretation Comments Eosinophils (test code = 0.9 See_Comment [A utomated message] The Eosinophils) system which ge nerated this result tra nsmitted reference range : <=4.0. The reference r leo was not used to int erpret this result as normal/abnormal . [facility] CenterTtzjqcmUWPQXRQOFA8937-72-97 11:21:00 Test Item Value Reference Range Interpretation Comments Monocytes (test code = Monocytes) 7.0 2.0-12.0 [facility] CenterJprzgtxOQICAXWSRF9100-78-41 11:21:00 Test Item Value Reference Range Interpretation Comments Lymphocytes (test code = Lymphocytes) 28.8 20.0-40.0 [facility] CenterGrziwhtMQDCUPUOPM5651-37-59 11:21:00 Test Item Value Reference Range Interpretation Comments WBC (test code = WBC) 8.8 3.7-10.4 [facility] CenterTvzblsfCTZULTEGGL6149-32-05 11:21:00 Test Item Value Reference Range Interpretation Comments RBC (test code = RBC) 5.19 4.20-5.40 [facility] CenterRepqvlmXVKYLSBJQJ5403-33-66 11:21:00 Test Item Value Reference Range Interpretation Comments Hgb (test code = Hgb) 14.4 12.0-16.0 [facility] CenterBpdwqceTXSDPTABEM1049-01-95 11:21:00 Test Item Value Reference Range Interpretation Comments Hct (test code = Hct) 43.1 36.0-48.0 [facility] CenterUxxubnpESOTWUTEOS5964-06-54 11:21:00 Test Item Value Reference Range Interpretation Comments MCV (test code = MCV) 83.1 80.0-98.0 [facility] CenterXqaosxlCFNVANJTBM8723-30-07 11:21:00 Test Item Value Reference Range Interpretation Comments MCH (test code = MCH) 27.8 pg 27.0-31.0 [facility] CenterIbhneerIUYRQNFJNT1975-11-79 11:21:00 Test Item Value Reference Range Interpretation Comments RDW (test code = RDW) 13.1 11.5-14.5 [facility] CenterLmqvgjgCIWWCBHRXJ8110-21-97 11:21:00 Test Item Value Reference Range Interpretation Comments MCHC (test code = MCHC) 33.5 32.0-36.0 [facility] CenterVfiguptKNUXRSKFKB7625-05-16 11:21:00 Test Item Value Reference Range Interpretation Comments Platelet (test code = Platelet) 201 133-450 [facility] CenterZcmwxgmCUUWNHWDLR4178-78-83 11:21:00 Test Item Value Reference Range Interpretation Comments MPV (test code = MPV) 10.4 7.4-10.4 [facility] HospitalKuulcmgFLKSSMGTWE4548-10-48 04:48:55 Test Item Value Reference Range Interpretation Comments UA [place] Yeast (test code = UA Occasional /HPF A [place] Yeast) [facility] HospitalQvqujsuVLWSDXCJOR7678-51-05 04:48:55 Test Item Value Reference Range Interpretation Comments UA Mucus (test code = UA Mucus) Few /LPF N [facility] HospitalWzcybdqORFVQBOWCL8528-84-15 04:48:55 Test Item Value Reference Range Interpretation Comments UA Sq Epi (test code = UA Sq Moderate /LPF A Epi) [facility] HospitalMihcsdyDIJHYVAXHF8695-72-61 04:48:55 Test Item Value Reference Range Interpretation Comments Micro? (test code = Performed (04/14/2013 N Micro?) 23:48:55) [facility] HospitalRillwnvUPTNJYUYXF5373-20-38 04:48:55 Test Item Value Reference Range Interpretation Comments UA WBC (test code = UA WBC) 0-2 /HPF N [facility] HospitalHmuhyafWWEOUZCBSC6643-43-51 04:48:55 Test Item Value Reference Range Interpretation Comments UA Bacteria (test code = UA Occasional /HPF N Bacteria) [facility] HospitalJqbiluxGDGOPWESIY8351-48-93 04:48:55 Test Item Value Reference Range Interpretation Comments UA Glucose (test code = UA Glucose) 500 mg/dL A [facility] HospitalOglaepaMTUYRFTROQ5238-68-37 04:48:55 Test Item Value Reference Range Interpretation Comments UA Bili (test code = Negative *NA*(04/14/2013 UA Bili) 23:48:55) [facility] HospitalSladgdyWUKAIYCMQF3828-16-61 04:48:55 Test Item Value Reference Range Interpretation Comments UA Ketones (test code = Trace A UA Ketones) *ABN*(04/14/2013 23:48:55) [facility] HospitalXgtinbhTVXTIXZJBB9422-04-24 04:48:55 Test Item Value Reference Range Interpretation Comments UA Blood (test code = Negative (04/14/2013 N UA Blood) 23:48:55) [facility] HospitalAkfuraiVHGTVKWGYH4178-19-73 04:48:55 Test Item Value Reference Range Interpretation Comments UA Urobilinogen (test code = UA 0.2 0.1-1.0 N Urobilinogen) [facility] HospitalNzueecpSNHHVVDTUM1003-94-66 04:48:55 Test Item Value Reference Range Interpretation Comments UA Nitrite (test code Negative (04/14/2013 N = UA Nitrite) 23:48:55) [facility] HospitalRlfceoyVWAFMLOERN1379-90-89 04:48:55 Test Item Value Reference Range Interpretation Comments UA Leuk Est (test Negative (04/14/2013 N code = UA Leuk Est) 23:48:55) [facility] HospitalRpkyglwNCRUIAQREJ5040-31-27 04:48:55 Test Item Value Reference Range Interpretation Comments UA Turbidity (test code = Clear (04/14/2013 N UA Turbidity) 23:48:55) [facility] HospitalAytayxxJUEDABSZTH7664-63-48 04:48:55 Test Item Value Reference Range Interpretation Comments UA Color (test code = Yellow *NA*(04/14/2013 UA Color) 23:48:55) [facility] HospitalDkjezzvAFZDFWSYHB6675-40-71 04:48:55 Test Item Value Reference Range Interpretation Comments UA pH (test code = UA pH) 7.0 1 5.0-8.0 N [facility] HospitalHdayejkSZQLPEQRBA3669-33-15 04:48:55 Test Item Value Reference Range Interpretation Comments UA Spec Grav (test code = UA Spec 1.025 1 N Grav) [facility] HospitalGsdahjfBKHXCWOKJE7085-96-52 04:48:55 Test Item Value Reference Range Interpretation Comments UA Protein (test code = Trace A UA Protein) *ABN*(04/14/2013 23:48:55) [facility]ballHabzlxyVQZANNPTA9498-73-53 04:28:00 Test Item Value Reference Range Interpretation Comments S Preg (test code = S Negative *NA*(04/14/2013 Preg) 23:28:00) [facility] TomballQstvzwoDQTZTQIAI4082-35-69 04:28:00 Test Item Value Reference Range Interpretation Comments Lipase Lvl (test code = Lipase Lvl) 233 73-393 N [facility] TomballAxttajlIIOGRZQQL0310-82-11 04:28:00 Test Item Value Reference Range Interpretation Comments Globulin (test code = Globulin) 4.1 2.0-4.0 H [facility] TomballIfspntaFAHMUXGMF9244-29-36 04:28:00 Test Item Value Reference Range Interpretation Comments AGAP (test code = AGAP) 10.5 10.0-20.0 N [facility] TomballTgtoqyeGPNXYLLCN5377-23-07 04:28:00 Test Item Value Reference Range Interpretation Comments B/C Ratio (test code = B/C Ratio) 6 6-25 N [facility] TomballJysvgluHLUJYMCOB6773-67-24 04:28:00 Test Item Value Reference Range Interpretation Comments A/G Ratio (test code = A/G Ratio) 0.7 0.7-1.6 N [facility] TomballIuyuefhMHDHOJLBR3724-84-60 04:28:00 Test Item Value Reference Range Interpretation Comments eGFR (test code = eGFR) 130 [facility] TomballNnkqjzmMYDRSCWMW2678-98-62 04:28:00 Test Item Value Reference Range Interpretation Comments Albumin Lvl (test code = Albumin Lvl) 2.9 3.5-5.0 L [facility] HospitalTaehjutUEFHOBUUJ9287-93-63 04:28:00 Test Item Value Reference Range Interpretation Comments ASPARTATE TRANSAMINASE 20 See_Comment N [Aut omated message] (test code = ASPARTATE The s ystem which TRANSAMINASE) generated this result transmitted ref erence range: <=37. Th e reference range was not used to interpr et this result as normal/abnormal . [facility] TomballHzsqnkkZSJQEIKAM0592-68-39 04:28:00 Test Item Value Reference Range Interpretation Comments Bili Total (test code = Bili Total) 0.5 0.2-1.3 N [facility] TomballDgvtowoLVXEDICKN2441-54-10 04:28:00 Test Item Value Reference Range Interpretation Comments Alk Phos (test code = Alk Phos) 89 39-136 N [facility] TomballTiyshxeMVZFRSXPO0347-60-45 04:28:00 Test Item Value Reference Range Interpretation Comments ALANINE AMINOTRANSFERASE 11 See_Comment N [A utomated message] (test code = ALANINE The sys tem which AMINOTRANSFERASE) generated this result transmitted ref erence range: <=65. Th e reference range was not used to int erpret this result as normal/abnormal . [facility] HospitalNpeclvqAPVRMNFNK1600-26-35 04:28:00 Test Item Value Reference Range Interpretation Comments Creatinine Lvl (test code = Creatinine 0.5 0.5-1.4 N Lvl) [facility] TomballJgtjgrkJKOJORKPT4122-09-73 04:28:00 Test Item Value Reference Range Interpretation Comments BUN (test code = BUN) 3 7-22 L [facility] TomballRsezggnELRIKXLKV3954-51-64 04:28:00 Test Item Value Reference Range Interpretation Comments Glucose Lvl (test code = Glucose Lvl) 255 70-99 [facility] [facility]SclxyskPSDUKCSBC7676-83-38 04:28:00 Test Item Value Reference Range Interpretation Comments Total Protein (test code = Total 7.0 6.4-8.4 N Protein) [facility] TomballZadiuofEVXJAMQKL8774-15-83 04:28:00 Test Item Value Reference Range Interpretation Comments Calcium Lvl (test code = Calcium Lvl) 8.7 8.5-10.5 N [facility]HzncopkASCHSYODA3359-19-44 04:28:00 Test Item Value Reference Range Interpretation Comments CO2 (test code = CO2) 29 24-32 N [facility] TomballGkzckjrYADACGRCP7266-64-68 04:28:00 Test Item Value Reference Range Interpretation Comments Chloride Lvl (test code = Chloride Lvl) 104 95-109 N [facility] TomballLyzbucwCAAVUBGRK7467-17-83 04:28:00 Test Item Value Reference Range Interpretation Comments Potassium Lvl (test code = Potassium 3.5 3.5-5.1 N Lvl) [facility] TomballJlpkqyaINJPMEUBK1088-40-08 04:28:00 Test Item Value Reference Range Interpretation Comments Sodium Lvl (test code = Sodium Lvl) 140 135-145 N [facility]JrrjavjVMNKDASDBI7896-33-43 04:28:00 Test Item Value Reference Range Interpretation Comments PROTIME (test code = PROTIME) 12.1 s 12.0-14.7 N [facility] CenterNassdqbZMSMMKCBHL0345-47-00 04:28:00 Test Item Value Reference Range Interpretation Comments aPTT (test code = aPTT) 39.0 s 22.9-35.8 H [facility] CenterHvglgiiTFRNDKHOKU0327-89-29 04:28:00 Test Item Value Reference Range Interpretation Comments INR (test code = INR) 0.90 0.85-1.17 N [facility] CenterPjmqnniMIXKDPLQBD7549-99-68 04:28:00 Test Item Value Reference Range Interpretation Comments MCH (test code = MCH) 29.4 pg 27.0-31.0 N [facility] CenterNnssfxeVJJSOIUSPR5570-98-95 04:28:00 Test Item Value Reference Range Interpretation Comments MCV (test code = MCV) 86.1 81.0-99.0 N [facility] CenterFxnoqhoFEAZCXXKZA1352-81-50 04:28:00 Test Item Value Reference Range Interpretation Comments Hct (test code = Hct) 29.4 36.0-48.0 L [facility] CenterXxskxjzIDYCXLUZEG0469-35-62 04:28:00 Test Item Value Reference Range Interpretation Comments RDW (test code = RDW) 14.0 11.5-14.5 N [facility] CenterGedvysjDWGZGMZWPX7108-45-74 04:28:00 Test Item Value Reference Range Interpretation Comments WBC X 10x3 (test code = WBC X 10x3) 6.2 3.7-10.4 N [facility] CenterNplbtfiLWEAVBMOJA3224-77-86 04:28:00 Test Item Value Reference Range Interpretation Comments Platelet (test code = Platelet) 178 133-450 N [facility] CenterXirxjcsZRZASBSKQG7673-36-02 04:28:00 Test Item Value Reference Range Interpretation Comments MCHC (test code = MCHC) 34.1 32.0-36.0 N [facility] CenterXpjsiogEHOQSCWXZK7066-29-79 04:28:00 Test Item Value Reference Range Interpretation Comments RBC X 10x6 (test code = RBC X 10x6) 3.41 4.20-5.40 L [facility] CenterLafdedoMGTRZJATOB5909-42-00 04:28:00 Test Item Value Reference Range Interpretation Comments Hgb (test code = Hgb) 10.0 12.0-16.0 L [facility] CenterCtycbbzEUGKDKYONZ3648-65-37 04:28:00 Test Item Value Reference Range Interpretation Comments MPV (test code = MPV) 10.1 7.4-10.4 N [facility] CenterZhchewtUXDBETSYSM1787-26-57 04:28:00 Test Item Value Reference Range Interpretation Comments Segs-Bands # (test code = Segs-Bands #) 4.4 1.5-8.1 N [facility] CenterJejawclVTVUGTVQVV1169-42-58 04:28:00 Test Item Value Reference Range Interpretation Comments Basophils (test code = 0.7 See_Comment N [Aut omated message] The Basophils) system which ge nerated this result tra nsmitted reference range : <=1.0. The reference r leo was not used to int erpret this result as normal/abnormal . [facility] CenterQosrgzmDSTIAPTAQY8238-65-05 04:28:00 Test Item Value Reference Range Interpretation Comments Segs (test code = Segs) 70.7 45.0-75.0 N [facility] CenterJrthagrQHNKZGQUNS2829-12-49 04:28:00 Test Item Value Reference Range Interpretation Comments Monocytes # (test code 0.3 See_Comment N [Aut omated message] The = Monocytes #) system which generated this result tra nsmitted reference range : <=0.8. The reference r leo was not used to int erpret this result as normal/abnormal . [facility] CenterDqvnejeSPYZFESEEY6633-92-83 04:28:00 Test Item Value Reference Range Interpretation Comments Lymphocytes # (test code = Lymphocytes 1.2 1.0-5.5 N #) [facility] CenterPtaznubTOGKPCTECK6799-09-69 04:28:00 Test Item Value Reference Range Interpretation Comments Monocytes (test code = Monocytes) 4.5 2.0-12.0 N [facility] CenterOovoqzvYBXAFOQNBS1622-01-85 04:28:00 Test Item Value Reference Range Interpretation Comments Eosinophils (test code = 4.1 See_Comment H [A utomated message] The Eosinophils) system which ge nerated this result tra nsmitted reference range : <=4.0. The reference r leo was not used to int erpret this result as normal/abnormal . [facility] CenterEjdxqxlILLRHIBDAV7517-05-74 04:28:00 Test Item Value Reference Range Interpretation Comments Lymphocytes (test code = Lymphocytes) 20.0 20.0-40.0 N [facility] CenterStwhxpwKKCIFJSYEU3589-45-81 04:28:00 Test Item Value Reference Range Interpretation Comments Basophils # (test code 0.0 See_Comment N [Aut omated message] The = Basophils #) system which generated this result tra nsmitted reference range : <=0.2. The reference r leo was not used to int erpret this result as normal/abnormal . [facility] CenterLdeyyobEUQPUYKHOZ2909-01-87 04:28:00 Test Item Value Reference Range Interpretation Comments Eosinophils # (test code 0.3 See_Comment N [A utomated message] The = Eosinophils #) system whic h generated this result tra nsmitted reference range : <=0.5. The reference r leo was not used to int erpret this result as normal/abnormal . [facility] GLUCOSE CJINSEX4350-59-68 01:12:00 Test Item Value Reference Range Interpretation Comments Gluc POC Lifscn (test code = Gluc POC 260 70-99 H Lifscn) [facility] GLUCOSE LUVXMIN6735-71-10 01:12:00 Test Item Value Reference Range Interpretation Comments Comment1 (test code = Comment1) [facility]NzxpwjcNHCCOYXPNW6383-71-42 23:40:00 Test Item Value Reference Range Interpretation Comments UA Protein (test code = Trace A UA Protein) *ABN*(03/14/2012 18:40:00) [facility] HospitalXmzrauhTDDVPEIOWQ5955-09-93 23:40:00 Test Item Value Reference Range Interpretation Comments UA pH (test code = UA pH) 6.0 1 5.0-8.0 N [facility]QkkqvkaBYTHLQSBRU0774-53-25 23:40:00 Test Item Value Reference Range Interpretation Comments UA Ketones (test code = >=80 mg/dL UA Ketones) *NA*(03/14/2012 18:40:00) [facility]YctpcxyBKCHEFUZLH3966-54-86 23:40:00 Test Item Value Reference Range Interpretation Comments UA Glucose (test code = >=1000 mg/dL A UA Glucose) *ABN*(03/14/2012 18:40:00) [facility] HospitalBvupbneZRAYTVJVGW4641-95-67 23:40:00 Test Item Value Reference Range Interpretation Comments UA Blood (test code = Negative (03/14/2012 N UA Blood) 18:40:00) [facility] HospitalHwimjqkHPVJTWVCCT1480-67-74 23:40:00 Test Item Value Reference Range Interpretation Comments UA Nitrite (test code Negative (03/14/2012 N = UA Nitrite) 18:40:00) [facility] HospitalYiufdnjKPEKFKKHIM4909-49-84 23:40:00 Test Item Value Reference Range Interpretation Comments UA Urobilinogen (test code = UA 0.2 0.1-1.0 N Urobilinogen) [facility] HospitalEeztvozAQYZUFSINB5945-91-71 23:40:00 Test Item Value Reference Range Interpretation Comments UA Leuk Est (test Negative (03/14/2012 N code = UA Leuk Est) 18:40:00) [facility] HospitalGpbqzltULDECVUAJJ1060-59-04 23:40:00 Test Item Value Reference Range Interpretation Comments UA Bili (test code = Negative *NA*(03/14/2012 UA Bili) 18:40:00) [facility] HospitalJwltxjaCSHJFDTXNK7342-62-93 23:40:00 Test Item Value Reference Range Interpretation Comments UA Turbidity (test code = Clear (03/14/2012 N UA Turbidity) 18:40:00) [facility] HospitalEpucxsmKLBZUORWJZ6801-51-14 23:40:00 Test Item Value Reference Range Interpretation Comments UA Color (test code = Yellow *NA*(03/14/2012 UA Color) 18:40:00) [facility] HospitalUhcldedCVNKOVYVEG3692-95-59 23:40:00 Test Item Value Reference Range Interpretation Comments UA Spec Grav (test >=1.030 A code = UA Spec Grav) *ABN*(03/14/2012 18:40:00) [facility] HospitalLadzvvgKHLECJXDSE8330-13-69 23:40:00 Test Item Value Reference Range Interpretation Comments UA Sq Epi (test code Occasional /LPF N = UA Sq Epi) (03/14/2012 18:40:00) [facility]PxjzqweRDKFCEPHUM2165-38-00 23:40:00 Test Item Value Reference Range Interpretation Comments UA WBC (test code = UA 3-5 /HPF (03/14/2012 N WBC) 18:40:00) [facility]ieQixuzsyMDGHCJVHIZ1496-63-31 23:40:00 Test Item Value Reference Range Interpretation Comments UA Bacteria (test code Occasional /HPF N = UA Bacteria) (03/14/2012 18:40:00) [facility] TomballZlrmnwiWBGQQTOBV2374-79-93 22:50:00 Test Item Value Reference Range Interpretation Comments S Preg (test code = S Negative *NA*(03/14/2012 Preg) 17:50:00) [facility] TomballJqmwfnuVZELPONDJ0818-87-03 22:50:00 Test Item Value Reference Range Interpretation Comments Lipase Lvl (test code = Lipase Lvl) 45 73-393 L [facility] TomballKqlqjsuMLMFRCASA7473-39-50 22:50:00 Test Item Value Reference Range Interpretation Comments A/G Ratio (test code = A/G Ratio) 1.2 0.7-1.6 N [facility] TomballAfppkzkKNPDYKNPW5139-31-21 22:50:00 Test Item Value Reference Range Interpretation Comments Globulin (test code = Globulin) 3.8 2.0-4.0 N [facility] TomballZunxqmlDJAMPHJFO7493-94-94 22:50:00 Test Item Value Reference Range Interpretation Comments B/C Ratio (test code = B/C Ratio) 21 6-25 N [facility] TomballHabctptBLPOTJRWN7907-39-50 22:50:00 Test Item Value Reference Range Interpretation Comments AGAP (test code = AGAP) 16.8 10.0-20.0 N [facility] TomballJrklkfzNWHGHCYTN4892-93-07 22:50:00 Test Item Value Reference Range Interpretation Comments Bili Total (test code = Bili Total) 1.1 0.2-1.3 N [facility] TomballIyinslmESICSMPNE8362-31-80 22:50:00 Test Item Value Reference Range Interpretation Comments Total Protein (test code = Total 8.2 6.4-8.4 N Protein) [facility] TomballFhnfmdaKJNLGRHPE0729-22-22 22:50:00 Test Item Value Reference Range Interpretation Comments Potassium Lvl (test code = Potassium 3.8 3.5-5.1 N Lvl) [facility] TomballAvlrqzkIYKRRQUWH3440-73-73 22:50:00 Test Item Value Reference Range Interpretation Comments Creatinine Lvl (test code = Creatinine 0.7 0.5-1.4 N Lvl) [facility] TomballIytxnzvTFMWNGFPT2642-58-77 22:50:00 Test Item Value Reference Range Interpretation Comments Sodium Lvl (test code = Sodium Lvl) 139 135-145 N [facility] TomballIjkvlcyCDJWUEVAW4869-74-18 22:50:00 Test Item Value Reference Range Interpretation Comments Chloride Lvl (test code = Chloride Lvl) 99 95-109 N [facility] TomballVadcxukHPEXPRTUI7631-76-62 22:50:00 Test Item Value Reference Range Interpretation Comments CO2 (test code = CO2) 27 24-32 N [facility] TomballDpyqxzwSYCZIDOBP7798-68-77 22:50:00 Test Item Value Reference Range Interpretation Comments Glucose Lvl (test code = Glucose Lvl) 301 70-99 H [facility] TomballSrbwyeeHZOKMGEKV5601-52-24 22:50:00 Test Item Value Reference Range Interpretation Comments BUN (test code = BUN) 15 7-22 N [facility] TomballDzekvtuKXBQSINUV1646-04-43 22:50:00 Test Item Value Reference Range Interpretation Comments ALT (test code = ALT) 24 See_Comment N [Auto mated message] The system which ge nerated this result transmit rohit reference range : <=65. The reference range was not used to interpr et this result as reji l/abnormal. [facility] TomballJhwsvriNJODVAFWZ1952-85-20 22:50:00 Test Item Value Reference Range Interpretation Comments AST (test code = AST) 20 See_Comment N [Auto mated message] The system which ge nerated this result transmit rohit reference range : <=37. The reference range was not used to interpr et this result as reji l/abnormal. [facility] TomballHhhrvxtDNRTPGYWX8926-66-43 22:50:00 Test Item Value Reference Range Interpretation Comments Alk Phos (test code = Alk Phos) 67 39-136 N [facility] TomballIfdevrxIPPMVFLSY0115-73-96 22:50:00 Test Item Value Reference Range Interpretation Comments Albumin Lvl (test code = Albumin Lvl) 4.4 3.5-5.0 N [facility] TomballPgqzzpzWYINSZRDJ0589-52-20 22:50:00 Test Item Value Reference Range Interpretation Comments Calcium Lvl (test code = Calcium Lvl) 9.9 8.5-10.5 N [facility] CenterGhwzydxUCUTYESNGF4378-06-56 22:50:00 Test Item Value Reference Range Interpretation Comments MPV (test code = MPV) 11.8 7.4-10.4 H [facility] CenterZyvqagiCLPQTSQBSI6015-17-54 22:50:00 Test Item Value Reference Range Interpretation Comments MCHC (test code = MCHC) 35.9 32.0-36.0 N [facility] CenterWebtxieLTHLUUBAEE1490-35-86 22:50:00 Test Item Value Reference Range Interpretation Comments MCH (test code = MCH) 31.2 pg 27.0-31.0 H [facility] CenterGhcnuvgINXSGWQYJG4186-80-04 22:50:00 Test Item Value Reference Range Interpretation Comments Platelet (test code = Platelet) 189 133-450 N [facility] CenterGjuzejlSXREAIOJEN7950-19-30 22:50:00 Test Item Value Reference Range Interpretation Comments RDW (test code = RDW) 13.1 11.5-14.5 N [facility] CenterVmazifeFPGSKEPVAB5884-23-88 22:50:00 Test Item Value Reference Range Interpretation Comments Hct (test code = Hct) 40.7 36.0-48.0 N [facility] CenterVumlhfjDTMQMTCOVV3118-72-79 22:50:00 Test Item Value Reference Range Interpretation Comments Hgb (test code = Hgb) 14.6 12.0-16.0 N [facility] CenterNqfgwfrKIKUCJDXMR8964-98-10 22:50:00 Test Item Value Reference Range Interpretation Comments MCV (test code = MCV) 87.0 81.0-99.0 N [facility] CenterBkbfuumLGYFSVMMXC8024-46-42 22:50:00 Test Item Value Reference Range Interpretation Comments WBC (test code = WBC) 11.7 3.7-10.4 H [facility] CenterEsdevkbDIRBUPWREQ4310-54-40 22:50:00 Test Item Value Reference Range Interpretation Comments RBC (test code = RBC) 4.68 4.20-5.40 N [facility] CenterUesjtgaAHNKSHYKSA9255-01-95 22:50:00 Test Item Value Reference Range Interpretation Comments Basophils # (test code 0.0 See_Comment N [Aut omated message] The = Basophils #) system which generated this result tra nsmitted reference range : <=0.2. The reference r leo was not used to int erpret this result as normal/abnormal . [facility] CenterJohsscwSKPMMAQLUG9403-83-77 22:50:00 Test Item Value Reference Range Interpretation Comments Basophils (test code = 0.2 See_Comment N [Aut omated message] The Basophils) system which ge nerated this result tra nsmitted reference range : <=1.0. The reference r leo was not used to int erpret this result as normal/abnormal . [facility] CenterAglsuhfJBAHMWTYAD8810-63-22 22:50:00 Test Item Value Reference Range Interpretation Comments Eosinophils # (test code 0.0 See_Comment N [A utomated message] The = Eosinophils #) system whic h generated this result tra nsmitted reference range : <=0.5. The reference r leo was not used to int erpret this result as normal/abnormal . [facility] CenterBfkgdhbNZNCDJQXNU3919-99-78 22:50:00 Test Item Value Reference Range Interpretation Comments Monocytes # (test code 0.4 See_Comment N [Aut omated message] The = Monocytes #) system which generated this result tra nsmitted reference range : <=0.8. The reference r leo was not used to int erpret this result as normal/abnormal . [facility] CenterCxnirtzZEYFKYQYBY0217-32-53 22:50:00 Test Item Value Reference Range Interpretation Comments Segs-Bands # (test code = Segs-Bands #) 10.6 1.5-8.1 H [facility] CenterFzwrpadMIEAELTGBS6922-96-64 22:50:00 Test Item Value Reference Range Interpretation Comments Lymphocytes # (test code = Lymphocytes 0.7 1.0-5.5 L #) [facility] CenterJsgwxmdMODEJBCPTF0477-86-92 22:50:00 Test Item Value Reference Range Interpretation Comments Monocytes (test code = Monocytes) 3.4 2.0-12.0 N [facility] CenterCbogjgjIODNPTKQKP6341-60-56 22:50:00 Test Item Value Reference Range Interpretation Comments Plt Morph (test code = Normal (03/14/2012 N Plt Morph) 17:50:00) [facility] CenterAyauaclKFERFKEXBU1329-67-85 22:50:00 Test Item Value Reference Range Interpretation Comments Lymphocytes (test code = Lymphocytes) 6.0 20.0-40.0 L [facility]LwpbtsjMQDRNKZPNK9445-46-94 22:50:00 Test Item Value Reference Range Interpretation Comments Eosinophils (test code = 0.0 See_Comment N [A utomated message] The Eosinophils) system which ge nerated this result tra nsmitted reference range : <=4.0. The reference r leo was not used to int erpret this result as normal/abnormal . [facility]WruhkrfZGTDIDCPVZ0862-41-05 22:50:00 Test Item Value Reference Range Interpretation Comments Segs (test code = Segs) 90.4 45.0-75.0 H [facility] HospitalHhdgsydJAXHOKRPLO7153-56-85 22:50:00 Test Item Value Reference Range Interpretation Comments RBC Morph (test code = Normal (03/14/2012 N RBC Morph) 17:50:00) [facility] GLUCOSE JTIEMRS2176-34-66 23:43:00 Test Item Value Reference Range Interpretation Comments Gluc POC Lifscn (test code = Gluc POC 167 70-99 H Lifscn) [facility] GLUCOSE CFXBZFI1006-68-09 23:43:00 Test Item Value Reference Range Interpretation Comments Comment1 (test code = Comment1) Notify RN/MD [facility] GLUCOSE AELIYLZ0115-18-87 23:43:00 Test Item Value Reference Range Interpretation Comments Comment2 (test code = Comment2) Sliding Scale [facility] GLUCOSE ZTZOPWQ2615-60-41 17:40:00 Test Item Value Reference Range Interpretation Comments Gluc POC Lifscn (test code = Gluc POC 189 70-99 H Lifscn) [facility] GLUCOSE WLNIJDO4601-40-79 17:40:00 Test Item Value Reference Range Interpretation Comments Comment1 (test code = Comment1) Notify RN/MD [facility] GLUCOSE EWIQEAY4112-11-61 17:40:00 Test Item Value Reference Range Interpretation Comments Comment2 (test code = Comment2) [facility]iding Scale [facility] ZLZVTUW4256-80-93 13:34:00 Test Item Value Reference Range Interpretation Comments Comment2 (test code = Comment2) Sliding Scale [facility] IWBBTCU8899-67-16 13:34:00 Test Item Value Reference Range Interpretation Comments Gluc POC Lifscn (test code = Gluc POC 110 70-99 H Lifscn) [facility] GLUCOSE KHXFJSH7548-70-32 13:34:00 Test Item Value Reference Range Interpretation Comments Comment1 (test code = Comment1) [facility] RN[facility]MD [facility] HospitalQrubmvyGJABBMHTS9738-33-82 00:00:00 Test Item Value Reference Range Interpretation Comments U Preg (test code = U Negative (11/28/2011 N Preg) 19:00:00) [facility] HospitalHokaqriJLAQXFJJBJ3411-29-93 00:00:00 Test Item Value Reference Range Interpretation Comments Micro? (test code = Performed (11/28/2011 N Micro?) 19:00:00) [facility] HospitalGhyrbkmGIAKFJGIYG4804-46-77 00:00:00 Test Item Value Reference Range Interpretation Comments UA Sq Epi (test code Occasional /LPF N = UA Sq Epi) (11/28/2011 19:00:00) [facility]ieYtmulbiKYOOHVMYHK6031-38-86 00:00:00 Test Item Value Reference Range Interpretation Comments UA RBC (test None Seen See_Comment N [Automated mes pastor] code = UA RBC) (11/28/2011 The system ich 19:00:00) generated this result transmitted ref erence range: <=2. The reference range was not used to int erpret this result as normal/abnormal . [facility] HospitalMtsuycwDFJEYKKZXR8065-76-11 00:00:00 Test Item Value Reference Range Interpretation Comments UA WBC (test code Occasional See_Comment [Automate d message] The = UA WBC) system which ge nerated this result tra nsmitted reference range : <=5. The reference range was not used to interpr et this result as normal/abnormal . [facility] HospitalTgvmefdAUHUYXNKLM7682-38-14 00:00:00 Test Item Value Reference Range Interpretation Comments UA Protein (test code Negative mg/dL N = UA Protein) (11/28/2011 19:00:00) [facility] HospitalUzdyiwyQKJESHLUSA7148-43-19 00:00:00 Test Item Value Reference Range Interpretation Comments UA pH (test code = UA pH) 7.0 1 5.0-8.0 N [facility] HospitalAgijyfyZACLEQEGGA7681-57-94 00:00:00 Test Item Value Reference Range Interpretation Comments UA Spec Grav (test code = UA Spec 1.020 1 N Grav) [facility] HospitalJcdabkpKIALERCUII4515-16-19 00:00:00 Test Item Value Reference Range Interpretation Comments UA Turbidity (test code = Clear (11/28/2011 N UA Turbidity) 19:00:00) [facility]ieNimbsjzXGGMCFIZQB8878-75-96 00:00:00 Test Item Value Reference Range Interpretation Comments UA Color (test code = Yellow *NA*(11/28/2011 UA Color) 19:00:00) [facility]ieXuhexmyQQHDKXTDTY2729-24-22 00:00:00 Test Item Value Reference Range Interpretation Comments UA Urobilinogen (test code = UA 0.2 0.1-1.0 N Urobilinogen) [facility]ieDqjehjcUXZQJNOUXR9684-00-50 00:00:00 Test Item Value Reference Range Interpretation Comments UA Blood (test code = Negative (11/28/2011 N UA Blood) 19:00:00) [facility] HospitalRxdsljeBNKNHWCTJC6533-46-54 00:00:00 Test Item Value Reference Range Interpretation Comments UA Bili (test code = Negative *NA*(11/28/2011 UA Bili) 19:00:00) [facility] HospitalJpsmzamQNMQEYIPHZ2583-41-66 00:00:00 Test Item Value Reference Range Interpretation Comments UA Ketones (test code = >=80 mg/dL A UA Ketones) *ABN*(11/28/2011 19:00:00) [facility] HospitalXygsqdoKOXMLKMMKJ2887-27-61 00:00:00 Test Item Value Reference Range Interpretation Comments UA Glucose (test code = >=1000 mg/dL A UA Glucose) *ABN*(11/28/2011 19:00:00) [facility] HospitalMivlvyrOTCQFSDOSR6269-13-02 00:00:00 Test Item Value Reference Range Interpretation Comments UA Nitrite (test code Negative (11/28/2011 N = UA Nitrite) 19:00:00) [facility]ieDukatnqPFYACFHFAX5273-31-03 00:00:00 Test Item Value Reference Range Interpretation Comments UA Leuk Est (test Negative (11/28/2011 N code = UA Leuk Est) 19:00:00) [facility]ballFpfqiuuDXXCZRBBE5456-26-45 20:41:00 Test Item Value Reference Range Interpretation Comments pO2 Roberth (test code = pO2 Roberth) 60 20-49 H [facility] TomballBseovopTLIAPIGOA5511-91-67 20:41:00 Test Item Value Reference Range Interpretation Comments pCO2 Roberth (test code = pCO2 Roberth) 41 38-52 N [facility] TomballHdfogvmQVBHSBOUM4740-30-22 20:41:00 Test Item Value Reference Range Interpretation Comments pH Roberth (test code = pH Roberth) 7.45 7.28-7.42 H [facility] TomballFledidmFGSWKLKFF9995-15-33 20:41:00 Test Item Value Reference Range Interpretation Comments Temp Roberth (test code = Temp Roberth) 37.0 [facility] TomballRpcthtaBGYPROABC7088-54-74 20:41:00 Test Item Value Reference Range Interpretation Comments O2 Sat Roberth (test code = O2 Sat Roberth) 92.0 40.0-70.0 H [facility] TomballOxubdlrACQOBNPBF3313-97-10 20:41:00 Test Item Value Reference Range Interpretation Comments BE Roberth (test code = 4 See_Comment H [Automa rohit message] The BE Roberth) system which ge nerated this result transmit rohit reference range : <=2. The reference range was not used to interpr et this result as reji l/abnormal. [facility] TomballYwkdidaLOTDOSGBE3538-58-33 20:41:00 Test Item Value Reference Range Interpretation Comments HCO3 Roberth (test code = HCO3 Roberth) 28.5 22.0-26.0 H [facility] TomballAejytjeLEIEBEIEV0592-35-22 20:00:00 Test Item Value Reference Range Interpretation Comments Lactic Acid Lvl (test code = Lactic 1.6 0.5-2.2 N Acid Lvl) [facility] TomballVumarnpNOGTYZTJA9193-95-33 20:00:00 Test Item Value Reference Range Interpretation Comments Lipase Lvl (test code = Lipase Lvl) 125 73-393 N [facility] TomballMnezvlpTBKIHYWDI5188-51-94 20:00:00 Test Item Value Reference Range Interpretation Comments Albumin Lvl (test code = Albumin Lvl) 4.2 3.5-5.0 N [facility] TomballNvmkrxnBRMIMNJSE9506-18-64 20:00:00 Test Item Value Reference Range Interpretation Comments CO2 (test code = CO2) 23 24-32 L [facility] TomballKmqfxkgIUNZQSQQV5688-67-92 20:00:00 Test Item Value Reference Range Interpretation Comments Chloride Lvl (test code = Chloride Lvl) 98 95-109 N [facility] TomballEcqvttlYNRVPAKGF8415-95-25 20:00:00 Test Item Value Reference Range Interpretation Comments Potassium Lvl (test code = Potassium 3.8 3.5-5.1 N Lvl) [facility] TomballQgyokdaLKHYOCMZE7921-40-68 20:00:00 Test Item Value Reference Range Interpretation Comments Sodium Lvl (test code = Sodium Lvl) 138 135-145 N [facility] TomballRjfredfUMYVVKUDQ1917-72-29 20:00:00 Test Item Value Reference Range Interpretation Comments Creatinine Lvl (test code = Creatinine 0.7 0.5-1.4 N Lvl) [facility] TomballTdigulnYZPBUYMMH3805-30-29 20:00:00 Test Item Value Reference Range Interpretation Comments BUN (test code = BUN) 9 7-22 N [facility] TomballMlefyedVAXRVSKEK9889-02-57 20:00:00 Test Item Value Reference Range Interpretation Comments Glucose Lvl (test code = Glucose Lvl) 269 70-99 H [facility] TomballOusxqxiJBFLBRZUP8068-46-99 20:00:00 Test Item Value Reference Range Interpretation Comments B/C Ratio (test code = B/C Ratio) 13 6-25 N [facility] TomballZrdcuahHCNAIGGWQ1627-18-40 20:00:00 Test Item Value Reference Range Interpretation Comments AGAP (test code = AGAP) 20.8 10.0-20.0 H [facility] TomballJzsgmzpDRRVWJIGK0198-61-94 20:00:00 Test Item Value Reference Range Interpretation Comments Calcium Lvl (test code = Calcium Lvl) 9.3 8.5-10.5 N [facility] TomballHlznnrzZOCROCGPI3087-28-90 20:00:00 Test Item Value Reference Range Interpretation Comments Total Protein (test code = Total 6.7 6.4-8.4 N Protein) [facility] TomballOpgmsmhHRUWFSIVT8243-05-59 20:00:00 Test Item Value Reference Range Interpretation Comments A/G Ratio (test code = A/G Ratio) 1.7 0.7-1.6 H [facility] TomballGkxoiciKTFSMTZJW9069-74-66 20:00:00 Test Item Value Reference Range Interpretation Comments Globulin (test code = Globulin) 2.5 2.0-4.0 N [facility] TomballKnedrrtCEXIRSAHP4862-22-13 20:00:00 Test Item Value Reference Range Interpretation Comments AST (test code = AST) 18 See_Comment N [Auto mated message] The system which ge nerated this result transmit rohit reference range : <=37. The reference range was not used to interpr et this result as reji l/abnormal. [facility] TomballJkwbhxgAQDIVTYFY5466-41-16 20:00:00 Test Item Value Reference Range Interpretation Comments Alk Phos (test code = Alk Phos) 62 39-136 N [facility] TomballFqiwtagXWCQONKCJ4085-86-85 20:00:00 Test Item Value Reference Range Interpretation Comments ALT (test code = ALT) 32 See_Comment N [Auto mated message] The system which ge nerated this result transmit rohit reference range : <=65. The reference range was not used to interpr et this result as reji l/abnormal. [facility] TomballNkotxxoYCJDCYWEE4886-36-23 20:00:00 Test Item Value Reference Range Interpretation Comments Bili Total (test code = Bili Total) 0.7 0.2-1.3 N [facility]JguttnaFEZDKVBNRI1061-47-88 20:00:00 Test Item Value Reference Range Interpretation Comments Anisocyte (test code = 1+ *ABN*(11/28/2011 A Anisocyte) 15:00:00) [facility] CenterEyyfgiyGTUFFZXHPV3672-18-54 20:00:00 Test Item Value Reference Range Interpretation Comments Monocytes # (test code 0.1 See_Comment N [Aut omated message] The = Monocytes #) system which generated this result tra nsmitted reference range : <=0.8. The reference r leo was not used to int erpret this result as normal/abnormal . [facility] CenterUqrwtmfOBPHQXDEVX8808-86-32 20:00:00 Test Item Value Reference Range Interpretation Comments Eosinophils # (test code 0.0 See_Comment N [A utomated message] The = Eosinophils #) system whic h generated this result tra nsmitted reference range : <=0.5. The reference r leo was not used to int erpret this result as normal/abnormal . [facility] CenterVqixipyWOKTCSZORE3070-27-22 20:00:00 Test Item Value Reference Range Interpretation Comments Basophils # (test code 0.0 See_Comment N [Aut omated message] The = Basophils #) system which generated this result tra nsmitted reference range : <=0.2. The reference r leo was not used to int erpret this result as normal/abnormal . [facility] CenterXayvvezVOXNFMLLQN1734-43-31 20:00:00 Test Item Value Reference Range Interpretation Comments Neut Vac (test code = Slight *ABN*(11/28/2011 A Neut Vac) 15:00:00) [facility] CenterPipflhkSFPUAJIWDZ3682-06-02 20:00:00 Test Item Value Reference Range Interpretation Comments Large Plt (test code = Slight *ABN*(11/28/2011 A Large Plt) 15:00:00) [facility] CenterXtkvtrgDMLINOTSKE1316-25-93 20:00:00 Test Item Value Reference Range Interpretation Comments Segs-Bands # (test code = Segs-Bands #) 5.7 1.5-8.1 N [facility] CenterYoohvesWCTPSBSJRQ1815-53-02 20:00:00 Test Item Value Reference Range Interpretation Comments Lymphocytes # (test code = Lymphocytes 0.8 1.0-5.5 L #) [facility] CenterAczqlxlFUZNIMAZYB7063-45-42 20:00:00 Test Item Value Reference Range Interpretation Comments Eosinophils (test code = 0.2 See_Comment N [A utomated message] The Eosinophils) system which ge nerated this result tra nsmitted reference range : <=4.0. The reference r leo was not used to int erpret this result as normal/abnormal . [facility] CenterHtqianbRMDCGYFYFL1317-70-23 20:00:00 Test Item Value Reference Range Interpretation Comments Basophils (test code = 0.0 See_Comment N [Aut omated message] The Basophils) system which ge nerated this result tra nsmitted reference range : <=1.0. The reference r leo was not used to int erpret this result as normal/abnormal . [facility] CenterKzydzalBXWQDOCKZV0846-75-77 20:00:00 Test Item Value Reference Range Interpretation Comments Monocytes (test code = Monocytes) 1.9 2.0-12.0 L [facility] CenterXthjgosEKTFXZJNXW2771-79-91 20:00:00 Test Item Value Reference Range Interpretation Comments Segs (test code = Segs) 86.2 45.0-75.0 H [facility] CenterUfkuxqsPXJKRFHNIB7630-84-36 20:00:00 Test Item Value Reference Range Interpretation Comments Lymphocytes (test code = Lymphocytes) 11.7 20.0-40.0 L [facility] CenterNdpexxbRAGXDQLDVU5273-74-22 20:00:00 Test Item Value Reference Range Interpretation Comments MPV (test code = MPV) 10.8 7.4-10.4 H [facility] CenterEihuirnFLTFOQXVFY7188-70-51 20:00:00 Test Item Value Reference Range Interpretation Comments Platelet (test code = Platelet) 161 133-450 N [facility] CenterEmcqkawMZLMTVVYCP1758-02-65 20:00:00 Test Item Value Reference Range Interpretation Comments MCHC (test code = MCHC) 35.6 32.0-36.0 N [facility] CenterNogtcbkPQOMIARSJT0468-83-16 20:00:00 Test Item Value Reference Range Interpretation Comments RDW (test code = RDW) 12.4 11.5-14.5 N [facility] CenterDeijgkiOUILDJUZDH0775-08-89 20:00:00 Test Item Value Reference Range Interpretation Comments MCH (test code = MCH) 30.7 pg 27.0-31.0 N [facility] CenterJtshqygPUQEVBVJLP1693-74-06 20:00:00 Test Item Value Reference Range Interpretation Comments MCV (test code = MCV) 86.1 81.0-99.0 N [facility] CenterIeeltreNUFKWNLSFU8787-48-42 20:00:00 Test Item Value Reference Range Interpretation Comments Hct (test code = Hct) 33.6 36.0-48.0 L [facility] CenterYbwimhbOQWXEIELJM8069-38-91 20:00:00 Test Item Value Reference Range Interpretation Comments Hgb (test code = Hgb) 12.0 12.0-16.0 N [facility] CenterDckfjviKYMDAZOPNY8632-37-04 20:00:00 Test Item Value Reference Range Interpretation Comments RBC (test code = RBC) 3.90 4.20-5.40 L [facility] CenterLdemobkUSOTWHCBBR6326-77-91 20:00:00 Test Item Value Reference Range Interpretation Comments WBC (test code = WBC) 6.6 3.7-10.4 N [facility] TomballAlpjmqjLFBXLFYZM9342-30-65 19:51:00 Test Item Value Reference Range Interpretation Comments UDS Note (test code = See Note UDS Note) 5*NA*(11/28/2011 14:51:00) [facility] TomballYiaynztRIUTQEOPO3241-91-16 19:51:00 Test Item Value Reference Range Interpretation Comments U Phencyc Scr (test Negative code = U Phencyc Scr) *NA*(11/28/2011 14:51:00) [facility] TomballVpguyleHVYZMZHWE2393-05-81 19:51:00 Test Item Value Reference Range Interpretation Comments U Kelly Scr (test code Negative *NA*(11/28/2011 = U Kelly Scr) 14:51:00) [facility] TomballAaqteveAFQFAFOPD9382-51-81 19:51:00 Test Item Value Reference Range Interpretation Comments U Amph Scr (test code Negative *NA*(11/28/2011 = U Amph Scr) 14:51:00) [facility] TomballVkrizezAHOBPYFCY5876-82-54 19:51:00 Test Item Value Reference Range Interpretation Comments U Opiate Scr (test Negative code = U Opiate Scr) *NA*(11/28/2011 14:51:00) [facility] TomballNsjulvnGAZABHPTD4933-85-23 19:51:00 Test Item Value Reference Range Interpretation Comments U Cocaine Scr (test Negative code = U Cocaine Scr) *NA*(11/28/2011 14:51:00) [facility] TomballAlsbnchKSMFKCNZJ4484-56-31 19:51:00 Test Item Value Reference Range Interpretation Comments U Cannab Scr (test Negative code = U Cannab Scr) *NA*(11/28/2011 14:51:00) [facility] TomballHryrsslGMJIRKOER3490-75-58 19:51:00 Test Item Value Reference Range Interpretation Comments U Benzodia Scr (test Negative code = U Benzodia Scr) *NA*(11/28/2011 14:51:00) [facility] GLUCOSE BTDEURR9852-64-49 16:20:00 Test Item Value Reference Range Interpretation Comments Comment1 (test code = Comment1) Ravi RN/MD [facility] GLUCOSE CRECGRF0216-76-87 16:20:00 Test Item Value Reference Range Interpretation Comments Gluc POC Lifscn (test code = Gluc POC 328 70-99 H Lifscn) [facility] TomballKtlegmxZMMSJMDMU7756-93-59 15:30:00 Test Item Value Reference Range Interpretation Comments U Preg (test code = U Negative (09/18/2011 N Preg) 10:30:00) [facility]QacegjbOCVKKKTMFK8272-74-11 15:30:00 Test Item Value Reference Range Interpretation Comments UA WBC (test code = UA None Seen (09/18/2011 N WBC) 10:30:00) [facility] HospitalLoaafduVGWCRHGUND8193-10-54 15:30:00 Test Item Value Reference Range Interpretation Comments UA RBC (test None Seen See_Comment N [Automated mes pastor] code = UA RBC) (09/18/2011 The system wh ich 10:30:00) generated this result transmitted ref erence range: <=2. The reference range was not used to int erpret this result as normal/abnormal . [facility]ToiuvekUGGCGFGUSU0959-64-52 15:30:00 Test Item Value Reference Range Interpretation Comments UA Bacteria (test code = None Seen (09/18/2011 N UA Bacteria) 10:30:00) [facility]CokwmwfCGDXQXXHRO0961-96-03 15:30:00 Test Item Value Reference Range Interpretation Comments UA Amorph Destiny (test Few /HPF A code = UA Amorph Destiny) *ABN*(09/18/2011 10:30:00) [facility]ieYmwgghbYAOBBYCGHB4186-00-76 15:30:00 Test Item Value Reference Range Interpretation Comments Micro? (test code = Performed (09/18/2011 N Micro?) 10:30:00) [facility]ieXypmhckNYBIXRSKSC3668-36-16 15:30:00 Test Item Value Reference Range Interpretation Comments UA Sq Epi (test code = Rare /LPF (09/18/2011 N UA Sq Epi) 10:30:00) [facility]ieFzqebvlMDDLJNIDLV5281-32-84 15:30:00 Test Item Value Reference Range Interpretation Comments UA Ketones (test code = 15 mg/dL A UA Ketones) *ABN*(09/18/2011 10:30:00) [facility]ieOyvzxxuDGCCDBZUBJ9873-38-71 15:30:00 Test Item Value Reference Range Interpretation Comments UA Glucose (test code = >=1000 mg/dL A UA Glucose) *ABN*(09/18/2011 10:30:00) [facility]ieXtznutiTQOUTJLCSG5114-48-81 15:30:00 Test Item Value Reference Range Interpretation Comments UA Protein (test code = Trace A UA Protein) *ABN*(09/18/2011 10:30:00) [facility]ieBzaagchZAXRMSHMWL8635-72-64 15:30:00 Test Item Value Reference Range Interpretation Comments UA Urobilinogen (test code = UA 0.2 0.1-1.0 N Urobilinogen) [facility]ieRhdmusuNPUHRYZTZL9336-43-35 15:30:00 Test Item Value Reference Range Interpretation Comments UA Blood (test code = Negative (09/18/2011 N UA Blood) 10:30:00) [facility]HjceoxqOTMKSDXHSI2956-84-27 15:30:00 Test Item Value Reference Range Interpretation Comments UA Bili (test code = Negative *NA*(09/18/2011 UA Bili) 10:30:00) [facility]ieFgvjsehDWWOKDLLAU1295-95-71 15:30:00 Test Item Value Reference Range Interpretation Comments UA Leuk Est (test Negative (09/18/2011 N code = UA Leuk Est) 10:30:00) [facility]ieKjdwvyiOUTRQFYZQI5502-18-95 15:30:00 Test Item Value Reference Range Interpretation Comments UA Nitrite (test code Negative (09/18/2011 N = UA Nitrite) 10:30:00) [facility]ieRrikppsMMQJUKBTFS0564-27-61 15:30:00 Test Item Value Reference Range Interpretation Comments UA pH (test code = UA pH) 7.5 1 5.0-8.0 N [facility]ieQuerruvEEBVIHXASD5470-31-34 15:30:00 Test Item Value Reference Range Interpretation Comments UA Spec Grav (test code = UA Spec 1.010 1 N Grav) [facility]ieQoxncvePLXPUXUTQH8978-02-92 15:30:00 Test Item Value Reference Range Interpretation Comments UA Turbidity (test code Slight Cloudy N = UA Turbidity) (09/18/2011 10:30:00) [facility]IjifvhsPQMDUEJXDT0700-19-52 15:30:00 Test Item Value Reference Range Interpretation Comments UA Color (test code = Yellow *NA*(09/18/2011 UA Color) 10:30:00) [facility] HospitalKoxnfaeCKTSWKSSA5573-57-12 14:07:00 Test Item Value Reference Range Interpretation Comments Phosphorus (test code = Phosphorus) 4.4 2.5-4.5 N [facility] TomballRmxwaiaZJKARUACJ4105-61-27 14:07:00 Test Item Value Reference Range Interpretation Comments Magnesium Lvl (test code = Magnesium 1.6 1.8-2.4 L Lvl) [facility] HVACRLR8601-48-29 14:01:00 Test Item Value Reference Range Interpretation Comments Gluc POC Lifscn (test code = Gluc POC no gt 70-99 A Lifscn) [facility] TomballPoggulbYXNOWXSLV2403-73-89 13:52:00 Test Item Value Reference Range Interpretation Comments pO2 Roberth (test code = pO2 Roberth) 24 20-49 N [facility] TomballRcfduqqKBFXQPHYN1531-06-52 13:52:00 Test Item Value Reference Range Interpretation Comments HCO3 Roberth (test code = HCO3 Roberth) 32.0 22.0-26.0 H [facility] TomballMsylhhdMULACGYDZ7930-02-72 13:52:00 Test Item Value Reference Range Interpretation Comments pCO2 Roberth (test code = pCO2 Roberth) 44 38-52 N [facility] TomballBegejpjQBQUFJQEV9177-79-45 13:52:00 Test Item Value Reference Range Interpretation Comments BE Roberth (test code = 7 See_Comment H [Automa rohit message] The BE Roberth) system which ge nerated this result transmit rohit reference range : <=2. The reference range was not used to interpr et this result as reji l/abnormal. [facility] TomballYqgxfbkWFDYIWVRZ5418-57-65 13:52:00 Test Item Value Reference Range Interpretation Comments O2 Sat Roberth (test code = O2 Sat Roberth) 48.0 40.0-70.0 N [facility] TomballXcsghjuIDWQXPQMF8276-65-15 13:52:00 Test Item Value Reference Range Interpretation Comments Temp Roberth (test code = Temp Roberth) 37.0 [facility] TomballIxuvnxxNJAOYMEZL2095-52-52 13:52:00 Test Item Value Reference Range Interpretation Comments pH Roberth (test code = pH Roberth) 7.47 7.28-7.42 H [facility] TomballZyjjtwtYTGJAZWWJ6382-04-03 13:52:00 Test Item Value Reference Range Interpretation Comments Calcium Lvl (test code = Calcium Lvl) 10.1 8.5-10.5 N [facility] TomballXtllwbsXAPSVYLGX1620-46-80 13:52:00 Test Item Value Reference Range Interpretation Comments Chloride Lvl (test code = Chloride Lvl) 92 95-109 L [facility] TomballAgqunynRXOAHRXSN4805-93-70 13:52:00 Test Item Value Reference Range Interpretation Comments CO2 (test code = CO2) 30 24-32 N [facility] TomballEleocndAEXWORRCN1358-57-15 13:52:00 Test Item Value Reference Range Interpretation Comments Potassium Lvl (test code = Potassium 3.5 3.5-5.1 N Lvl) [facility] TomballGzkgcadYUTWGMIMA5683-41-58 13:52:00 Test Item Value Reference Range Interpretation Comments Sodium Lvl (test code = Sodium Lvl) 133 135-145 L [facility] TomballAafajytVJHFDJFMQ0181-47-27 13:52:00 Test Item Value Reference Range Interpretation Comments Creatinine Lvl (test code = Creatinine 1.3 0.5-1.4 N Lvl) [facility] TomballCtqpticNZAHEZDSP9569-08-99 13:52:00 Test Item Value Reference Range Interpretation Comments Glucose Lvl (test code = Glucose Lvl) 383 70-99 H [facility] TomballVnrvietAYFDAUAYI3578-08-61 13:52:00 Test Item Value Reference Range Interpretation Comments BUN (test code = BUN) 17 7-22 N [facility] TomballIqevfskFKOPPPCKC0916-30-09 13:52:00 Test Item Value Reference Range Interpretation Comments AGAP (test code = AGAP) 14.5 10.0-20.0 N [facility]JjqlvtkOQCWJDOMQF4784-14-68 13:52:00 Test Item Value Reference Range Interpretation Comments MPV (test code = MPV) 12.0 7.4-10.4 H [facility] CenterKgjkvsyPXRASGCMNM4818-05-22 13:52:00 Test Item Value Reference Range Interpretation Comments Platelet (test code = Platelet) 226 133-450 N [facility] CenterCmnxfmkCYWEQXFYVU3800-64-90 13:52:00 Test Item Value Reference Range Interpretation Comments MCHC (test code = MCHC) 33.7 32.0-36.0 N [facility] CenterRmbiwmxAKWNYLOGCW1263-30-27 13:52:00 Test Item Value Reference Range Interpretation Comments MCH (test code = MCH) 28.5 pg 27.0-31.0 N [facility] CenterTjpbfyaYLVCVCOWUK0794-65-11 13:52:00 Test Item Value Reference Range Interpretation Comments RDW (test code = RDW) 15.1 11.5-14.5 H [facility] CenterOzcxjqiFAMSQQTKEU3068-59-75 13:52:00 Test Item Value Reference Range Interpretation Comments MCV (test code = MCV) 84.6 81.0-99.0 N [facility] CenterRuseszqJJGPWDIOLT1996-45-61 13:52:00 Test Item Value Reference Range Interpretation Comments Hct (test code = Hct) 36.4 36.0-48.0 N [facility] CenterBxyahsiSQGJUAEBZE8222-45-10 13:52:00 Test Item Value Reference Range Interpretation Comments Hgb (test code = Hgb) 12.3 12.0-16.0 N [facility] CenterCxhokatGGZANVNEYW9406-11-28 13:52:00 Test Item Value Reference Range Interpretation Comments RBC (test code = RBC) 4.30 4.20-5.40 N [facility] CenterJdsojioKFMOMRRXTO3242-80-28 13:52:00 Test Item Value Reference Range Interpretation Comments WBC (test code = WBC) 11.7 3.7-10.4 H [facility] CenterHmyuwtkQPCUDGGPUK7832-06-77 13:52:00 Test Item Value Reference Range Interpretation Comments Monocytes (test code = Monocytes) 2.9 2.0-12.0 N [facility] CenterUblxgiaKSRAQIBLTP7095-38-37 13:52:00 Test Item Value Reference Range Interpretation Comments Eosinophils (test code = 0.2 See_Comment N [A utomated message] The Eosinophils) system which ge nerated this result tra nsmitted reference range : <=4.0. The reference r leo was not used to int erpret this result as normal/abnormal . [facility] CenterKpczpafDVXDKVUIRI1373-86-33 13:52:00 Test Item Value Reference Range Interpretation Comments Basophils (test code = 0.0 See_Comment N [Aut omated message] The Basophils) system which ge nerated this result tra nsmitted reference range : <=1.0. The reference r leo was not used to int erpret this result as normal/abnormal . [facility] CenterLsehkmoUFWYSREPTE8082-29-80 13:52:00 Test Item Value Reference Range Interpretation Comments Eosinophils # (test code 0.0 See_Comment N [A utomated message] The = Eosinophils #) system whic h generated this result tra nsmitted reference range : <=0.5. The reference r leo was not used to int erpret this result as normal/abnormal . [facility] CenterKradnznMMAMHKADWP1285-67-97 13:52:00 Test Item Value Reference Range Interpretation Comments Monocytes # (test code 0.3 See_Comment N [Aut omated message] The = Monocytes #) system which generated this result tra nsmitted reference range : <=0.8. The reference r leo was not used to int erpret this result as normal/abnormal . [facility] CenterTsusybkNSSLATVANV8653-91-11 13:52:00 Test Item Value Reference Range Interpretation Comments Segs (test code = Segs) 92.0 45.0-75.0 H [facility] CenterYqlvavtPTXLDOSPDH8167-20-96 13:52:00 Test Item Value Reference Range Interpretation Comments Lymphocytes (test code = Lymphocytes) 4.9 20.0-40.0 L [facility] CenterMnadcutCGABSAKRGK5506-67-60 13:52:00 Test Item Value Reference Range Interpretation Comments Spherocyte (test code = Rare A Spherocyte) *ABN*(09/18/2011 08:52:00) [facility] CenterYafduksFPVZKNETXE5864-44-98 13:52:00 Test Item Value Reference Range Interpretation Comments Large Plt (test code = Slight *ABN*(09/18/2011 A Large Plt) 08:52:00) [facility] CenterKrexxikOGXIYJEDMU7007-34-11 13:52:00 Test Item Value Reference Range Interpretation Comments Microcyte (test code = 1+ *ABN*(09/18/2011 A Microcyte) 08:52:00) [facility] CenterUbeggdwYYQCCWIMGB6952-07-64 13:52:00 Test Item Value Reference Range Interpretation Comments Schistocyte (test code = Schistocyte) Rare [facility] CenterThstsqkBBQZQEIYQS8009-15-08 13:52:00 Test Item Value Reference Range Interpretation Comments Macrocyte (test code = 1+ *ABN*(09/18/2011 A Macrocyte) 08:52:00) [facility] CenterEsghkoxWSUQBJGEDT2673-03-32 13:52:00 Test Item Value Reference Range Interpretation Comments Lymphocytes # (test code = Lymphocytes 0.6 1.0-5.5 L #) [facility] CenterZkjhiinCZBTGBPOWM3750-84-55 13:52:00 Test Item Value Reference Range Interpretation Comments Segs-Bands # (test code = Segs-Bands #) 10.8 1.5-8.1 H [facility] CenterHrviizwETXXLESRUF2606-58-62 13:52:00 Test Item Value Reference Range Interpretation Comments Basophils # (test code 0.0 See_Comment N [Aut omated message] The = Basophils #) system which generated this result tra nsmitted reference range : <=0.2. The reference r leo was not used to int erpret this result as normal/abnormal . [facility] CenterWgjvinoFJTZWITPAQ5655-26-36 13:52:00 Test Item Value Reference Range Interpretation Comments Anisocyte (test code = 1+ *ABN*(09/18/2011 A Anisocyte) 08:52:00) [facility]CcvtqxhERIRBAALTT8562-96-41 13:52:00 Test Item Value Reference Range Interpretation Comments CDC-HIV 1/2 Ab (test Negative *NA*(09/18/2011 code = CDC-HIV 1/2 08:52:00) Ab) [facility] GLUCOSE IUZHIMX1741-52-77 17:34:00 Test Item Value Reference Range Interpretation Comments Gluc POC Lifscn (test code = Gluc POC 215 70-99 H Lifscn) [facility] GLUCOSE VEWSJGP1618-93-15 17:34:00 Test Item Value Reference Range Interpretation Comments Comment1 (test code = Comment1) Notify RN/MD [facility] GLUCOSE WDNQFYP0447-74-67 11:43:00 Test Item Value Reference Range Interpretation Comments Comment1 (test code = Comment1) Notify RN/MD [facility] GLUCOSE VQTXMZJ4016-84-34 11:43:00 Test Item Value Reference Range Interpretation Comments Gluc POC Lifscn (test code = Gluc POC 91 65-110 N Lifscn) [facility] GLUCOSE COPYNWO2227-10-75 02:45:00 Test Item Value Reference Range Interpretation Comments Comment1 (test code = Comment1) Notify RN/ [facility] GLUCOSE PNFJFJB3309-54-61 02:45:00 Test Item Value Reference Range Interpretation Comments Gluc POC Lifscn (test code = Gluc POC 148 65-110 H Lifscn) [facility] [facility]ballVndhxocJUHAEARPP6421-08-43 08:47:00 Test Item Value Reference Range Interpretation Comments Sodium Lvl (test code = Sodium Lvl) 143 135-145 N [facility] TomballLjxdpqiECAVVAYDP9271-90-99 08:47:00 Test Item Value Reference Range Interpretation Comments Glucose Lvl (test code = Glucose Lvl) 105 [facility] TomballDilvhfrUKRCEMGBO0346-62-76 08:47:00 Test Item Value Reference Range Interpretation Comments CO2 (test code = CO2) 29 24-32 N [facility] TomballThftllgZIOXBLLCP8994-14-44 08:47:00 Test Item Value Reference Range Interpretation Comments Chloride Lvl (test code = Chloride Lvl) 103 95-109 N [facility] TomballIlfrsgyWZMBUZQUW2242-55-80 08:47:00 Test Item Value Reference Range Interpretation Comments BUN (test code = BUN) 10 7-22 N [facility] TomballRjrkzbpVHJQJJLGA3426-01-86 08:47:00 Test Item Value Reference Range Interpretation Comments Potassium Lvl (test code = Potassium 3.8 3.5-5.1 N Lvl) [facility] TomballQtodrerSXOFNVDOB9995-80-13 08:47:00 Test Item Value Reference Range Interpretation Comments Creatinine Lvl (test code = Creatinine 0.6 0.5-1.4 N Lvl) [facility] TomballBbhvzwzRTEJDYEYD7959-90-33 08:47:00 Test Item Value Reference Range Interpretation Comments Calcium Lvl (test code = Calcium Lvl) 8.5 8.5-10.5 N [facility] TomballBlbbfbsXTSLKXKGT2878-45-66 08:47:00 Test Item Value Reference Range Interpretation Comments AGAP (test code = AGAP) 14.8 10.0-20.0 N [facility]TgeoaopNHPCJEFDUX2856-56-50 08:47:00 Test Item Value Reference Range Interpretation Comments MCH (test code = MCH) 28.9 pg 27.0-31.0 N [facility] CenterZhlbwwzUANAQBSZFF2369-82-44 08:47:00 Test Item Value Reference Range Interpretation Comments MCV (test code = MCV) 82.1 81.0-99.0 N [facility] CenterIxksjbgBFTTMLEWUF0661-90-95 08:47:00 Test Item Value Reference Range Interpretation Comments Hct (test code = Hct) 25.9 36.0-48.0 L [facility] CenterPtifnviOAXPYUDJVU7483-69-21 08:47:00 Test Item Value Reference Range Interpretation Comments Platelet (test code = Platelet) 233 133-450 N [facility] CenterSphhmksTBBJADEHDX3838-79-91 08:47:00 Test Item Value Reference Range Interpretation Comments RDW (test code = RDW) 14.5 11.5-14.5 N [facility] CenterUjhjrxhFHTKZSQWTI6880-69-63 08:47:00 Test Item Value Reference Range Interpretation Comments MCHC (test code = MCHC) 35.2 32.0-36.0 N [facility] CenterYyajcvdVJCUJOEMJG1391-42-37 08:47:00 Test Item Value Reference Range Interpretation Comments Hgb (test code = Hgb) 9.1 12.0-16.0 L [facility] CenterCvmbhhlPFMXVRQMCN2444-36-04 08:47:00 Test Item Value Reference Range Interpretation Comments RBC (test code = RBC) 3.15 4.20-5.40 L [facility] CenterBvxlrqlSGVYOGYNQG8952-26-25 08:47:00 Test Item Value Reference Range Interpretation Comments MPV (test code = MPV) 9.0 7.4-10.4 N [facility] CenterDeuphixUSOCPOFTHA3230-52-39 08:47:00 Test Item Value Reference Range Interpretation Comments WBC (test code = WBC) 6.3 3.7-10.4 N [facility] CenterAytfdjnWCPEGZRXIA0715-03-90 08:47:00 Test Item Value Reference Range Interpretation Comments Eosinophils # (test code 0.0 See_Comment N [A utomated message] The = Eosinophils #) system whic h generated this result tra nsmitted reference range : <=0.5. The reference r leo was not used to int erpret this result as normal/abnormal . [facility] CenterBnrlmeyAPDSDCOIZU2684-51-40 08:47:00 Test Item Value Reference Range Interpretation Comments Basophils # (test code 0.0 See_Comment N [Aut omated message] The = Basophils #) system which generated this result tra nsmitted reference range : <=0.2. The reference r leo was not used to int erpret this result as normal/abnormal . [facility] CenterEbjqmbnQDEVRPVUWG0660-86-08 08:47:00 Test Item Value Reference Range Interpretation Comments Segs-Bands # (test code = Segs-Bands #) 3.8 1.5-8.1 N [facility] CenterEhlombwDJXAEYLCUT5348-91-04 08:47:00 Test Item Value Reference Range Interpretation Comments Lymphocytes # (test code = Lymphocytes 2.0 1.0-5.5 N #) [facility] CenterGagjnllMPBFPTUMLA6095-46-20 08:47:00 Test Item Value Reference Range Interpretation Comments Basophils (test code = 0.5 See_Comment N [Aut omated message] The Basophils) system which ge nerated this result tra nsmitted reference range : <=1.0. The reference r leo was not used to int erpret this result as normal/abnormal . [facility] CenterWmoaivpFEARDMDWYS4841-24-73 08:47:00 Test Item Value Reference Range Interpretation Comments Eosinophils (test code = 0.7 See_Comment N [A utomated message] The Eosinophils) system which ge nerated this result tra nsmitted reference range : <=4.0. The reference r leo was not used to int erpret this result as normal/abnormal . [facility] CenterMeauootTZEIHHCXNC9785-74-59 08:47:00 Test Item Value Reference Range Interpretation Comments Monocytes (test code = Monocytes) 6.2 2.0-12.0 N [facility] CenterYhydbufQBHPENWCTW1353-57-15 08:47:00 Test Item Value Reference Range Interpretation Comments Segs (test code = Segs) 61.1 45.0-75.0 N [facility] CenterVezuuasMHGOZFOCSR2881-71-35 08:47:00 Test Item Value Reference Range Interpretation Comments Lymphocytes (test code = Lymphocytes) 31.5 20.0-40.0 N [facility] CenterHybqkqhTCGPUJQKEJ6763-34-69 08:47:00 Test Item Value Reference Range Interpretation Comments Monocytes # (test code 0.4 See_Comment N [Aut omated message] The = Monocytes #) system which generated this result tra nsmitted reference range : <=0.8. The reference r leo was not used to int erpret this result as normal/abnormal . [facility] TomballLnfryhlIUVQAMHMV4275-38-65 10:54:00 Test Item Value Reference Range Interpretation Comments CO2 (test code = CO2) 27 24-32 N [facility] TomballUxqodgfZPUROVLLM1347-74-05 10:54:00 Test Item Value Reference Range Interpretation Comments Chloride Lvl (test code = Chloride Lvl) 104 95-109 N [facility] TomballHtcgtulTUBQQOYZV2580-57-93 10:54:00 Test Item Value Reference Range Interpretation Comments Creatinine Lvl (test code = Creatinine 0.5 0.5-1.4 N Lvl) [facility] TomballYbgodztGULAQUEHS0582-64-67 10:54:00 Test Item Value Reference Range Interpretation Comments BUN (test code = BUN) 10 7-22 N [facility] TomballLxallssPNEXFGJIZ2631-95-72 10:54:00 Test Item Value Reference Range Interpretation Comments Potassium Lvl (test code = Potassium 4.1 3.5-5.1 N Lvl) [facility] TomballJxjpqaoBZVUWRLKJ4809-69-44 10:54:00 Test Item Value Reference Range Interpretation Comments Sodium Lvl (test code = Sodium Lvl) 141 135-145 N [facility] TomballJiknyvpJZRFQOHKQ9960-90-83 10:54:00 Test Item Value Reference Range Interpretation Comments Glucose Lvl (test code = Glucose Lvl) 83 [facility] TomballFrmcqezOVDFSLQJA9825-22-91 10:54:00 Test Item Value Reference Range Interpretation Comments Calcium Lvl (test code = Calcium Lvl) 8.4 8.5-10.5 L [facility] TomballGbykltuBBVWJNPYU4677-40-21 10:54:00 Test Item Value Reference Range Interpretation Comments AGAP (test code = AGAP) 14.1 10.0-20.0 N [facility] CenterIkmvgqzSALUCZFAUK5376-71-43 10:54:00 Test Item Value Reference Range Interpretation Comments Hct (test code = Hct) 35.5 36.0-48.0 L [facility] CenterRmgrsliBMAQOIXDRP1770-59-93 10:54:00 Test Item Value Reference Range Interpretation Comments WBC (test code = WBC) 4.7 3.7-10.4 N [facility] CenterIncopmwCDFQESHLID6257-98-01 10:54:00 Test Item Value Reference Range Interpretation Comments MCV (test code = MCV) 92.6 81.0-99.0 N [facility] CenterMdirgmxQAHPOEUPOY8808-68-29 10:54:00 Test Item Value Reference Range Interpretation Comments MCH (test code = MCH) 31.4 pg 27.0-31.0 H [facility] CenterBhglffsARVKRCPABV9668-14-85 10:54:00 Test Item Value Reference Range Interpretation Comments RBC (test code = RBC) 3.84 4.20-5.40 L [facility] CenterDuftfoyVRCWJZVBPN3471-95-71 10:54:00 Test Item Value Reference Range Interpretation Comments Hgb (test code = Hgb) 12.1 12.0-16.0 N [facility] CenterJwuxgtwBFYXOTREDQ6571-23-89 10:54:00 Test Item Value Reference Range Interpretation Comments Platelet (test code = Platelet) 287 133-450 N [facility] CenterPehmxsmHWBCVFVZCX8964-87-92 10:54:00 Test Item Value Reference Range Interpretation Comments RDW (test code = RDW) 12.7 11.5-14.5 N [facility] CenterPlwgjvsGYUPJWTBCS2533-10-23 10:54:00 Test Item Value Reference Range Interpretation Comments MCHC (test code = MCHC) 33.9 32.0-36.0 N [facility] CenterMiezgbcPBRNLCGBQK1131-94-34 10:54:00 Test Item Value Reference Range Interpretation Comments MPV (test code = MPV) 7.2 7.4-10.4 L [facility] CenterKtteavaJIIYQNKYZB3943-39-97 10:54:00 Test Item Value Reference Range Interpretation Comments INR (test code = INR) 0.95 0.85-1.17 N [facility] CenterVtnopmuMJQJDIIYJK1805-41-96 10:54:00 Test Item Value Reference Range Interpretation Comments PT (test code = PT) 12.7 s 12.0-14.7 N [facility] CenterJxhunajGHXEJAHTQO7498-16-07 10:54:00 Test Item Value Reference Range Interpretation Comments PTT (test code = PTT) 28.5 s 22.9-35.8 N [facility] CenterGcngtzpLGWYWDBODF9871-23-98 10:54:00 Test Item Value Reference Range Interpretation Comments Eosinophils # (test code 0.1 See_Comment N [A utomated message] The = Eosinophils #) system whic h generated this result tra nsmitted reference range : <=0.5. The reference r leo was not used to int erpret this result as normal/abnormal . [facility] CenterCentipoZAJLVALOJF5182-03-97 10:54:00 Test Item Value Reference Range Interpretation Comments Basophils # (test code 0.0 See_Comment N [Aut omated message] The = Basophils #) system which generated this result tra nsmitted reference range : <=0.2. The reference r leo was not used to int erpret this result as normal/abnormal . [facility] CenterFeqltggEXUFTWVQST7605-77-08 10:54:00 Test Item Value Reference Range Interpretation Comments Basophils (test code = 0.4 See_Comment N [Aut omated message] The Basophils) system which ge nerated this result tra nsmitted reference range : <=1.0. The reference r leo was not used to int erpret this result as normal/abnormal . [facility] CenterWmrmtoqDXRTMVSXTP2755-11-62 10:54:00 Test Item Value Reference Range Interpretation Comments Segs-Bands # (test code = Segs-Bands #) 2.1 1.5-8.1 N [facility] CenterWoxazmyBGBLGCGPEQ6891-74-06 10:54:00 Test Item Value Reference Range Interpretation Comments Monocytes (test code = Monocytes) 9.0 2.0-12.0 N [facility] CenterHyyseewKKXIMBEPYT9378-20-27 10:54:00 Test Item Value Reference Range Interpretation Comments Eosinophils (test code = 2.4 See_Comment N [A utomated message] The Eosinophils) system which ge nerated this result tra nsmitted reference range : <=4.0. The reference r leo was not used to int erpret this result as normal/abnormal . [facility] CenterPcxvwicQJBPGKEWVY3564-63-29 10:54:00 Test Item Value Reference Range Interpretation Comments Monocytes # (test code 0.4 See_Comment N [Aut omated message] The = Monocytes #) system which generated this result tra nsmitted reference range : <=0.8. The reference r leo was not used to int erpret this result as normal/abnormal . [facility] CenterIzaxcghNEXOEDPGPB0201-98-40 10:54:00 Test Item Value Reference Range Interpretation Comments Lymphocytes # (test code = Lymphocytes 2.0 1.0-5.5 N #) [facility] CenterXknxrjlPYIRZROBBT8212-85-44 10:54:00 Test Item Value Reference Range Interpretation Comments Lymphocytes (test code = Lymphocytes) 42.8 20.0-40.0 H [facility] CenterTtrlwfbXMIGRDVIEG9901-23-85 10:54:00 Test Item Value Reference Range Interpretation Comments Segs (test code = Segs) 45.4 45.0-75.0 N [facility] TomballJfmbhztBXNPQYKUT2310-95-95 10:02:00 Test Item Value Reference Range Interpretation Comments Chloride Lvl (test code = Chloride Lvl) 105 95-109 N [facility] TomballPixjcwzJFRLSLTYS8130-39-89 10:02:00 Test Item Value Reference Range Interpretation Comments Potassium Lvl (test code = Potassium 4.1 3.5-5.1 N Lvl) [facility] TomballWfayowkAGPYAUWCK8639-44-62 10:02:00 Test Item Value Reference Range Interpretation Comments Sodium Lvl (test code = Sodium Lvl) 143 135-145 N [facility] TomballTgfsszsKDZDUEFMS0131-83-13 10:02:00 Test Item Value Reference Range Interpretation Comments CO2 (test code = CO2) 29 24-32 N [facility] TomballYqzgdrlBPFDFJWBK1485-77-81 10:02:00 Test Item Value Reference Range Interpretation Comments Calcium Lvl (test code = Calcium Lvl) 8.7 8.5-10.5 N [facility] TomballZiajnocISWYMCNII5843-66-36 10:02:00 Test Item Value Reference Range Interpretation Comments BUN (test code = BUN) 6 7-22 L [facility] TomballTbkmobnPOZEMFDMS8320-08-56 10:02:00 Test Item Value Reference Range Interpretation Comments Creatinine Lvl (test code = Creatinine 0.6 0.5-1.4 N Lvl) [facility] TomballDnbkucpCCQKOJPRB7560-94-34 10:02:00 Test Item Value Reference Range Interpretation Comments Glucose Lvl (test code = Glucose Lvl) 118 [facility] TomballPmmsaqqXDIQDCXFH6130-96-80 10:02:00 Test Item Value Reference Range Interpretation Comments AGAP (test code = AGAP) 13.1 10.0-20.0 N [facility] CenterTiostvxRBQQAIZUJD2996-81-14 10:02:00 Test Item Value Reference Range Interpretation Comments Basophils # (test code 0.0 See_Comment N [Aut omated message] The = Basophils #) system which generated this result tra nsmitted reference range : <=0.2. The reference r leo was not used to int erpret this result as normal/abnormal . [facility] CenterQuzhtkqLZETYSBXLW1627-33-34 10:02:00 Test Item Value Reference Range Interpretation Comments Monocytes # (test code 0.3 See_Comment N [Aut omated message] The = Monocytes #) system which generated this result tra nsmitted reference range : <=0.8. The reference r leo was not used to int erpret this result as normal/abnormal . [facility] CenterPmjxhsbRBKMBNLISB7578-92-28 10:02:00 Test Item Value Reference Range Interpretation Comments Eosinophils # (test code 0.1 See_Comment N [A utomated message] The = Eosinophils #) system whic h generated this result tra nsmitted reference range : <=0.5. The reference r leo was not used to int erpret this result as normal/abnormal . [facility] CenterIrsegozKITXFKXWMM9726-61-29 10:02:00 Test Item Value Reference Range Interpretation Comments Segs-Bands # (test code = Segs-Bands #) 2.8 1.5-8.1 N [facility] CenterMsuugzoDCUVGZVXYE1319-70-57 10:02:00 Test Item Value Reference Range Interpretation Comments Lymphocytes # (test code = Lymphocytes 1.7 1.0-5.5 N #) [facility] CenterUkggzmaEGNGHSDLWT4224-91-45 10:02:00 Test Item Value Reference Range Interpretation Comments Basophils (test code = 0.6 See_Comment N [Aut omated message] The Basophils) system which ge nerated this result tra nsmitted reference range : <=1.0. The reference r leo was not used to int erpret this result as normal/abnormal . [facility] CenterTesomtwKDWXSEDCVO4315-21-54 10:02:00 Test Item Value Reference Range Interpretation Comments Monocytes (test code = Monocytes) 6.9 2.0-12.0 N [facility] CenterBxohsmxLPOQPRZUGC9441-54-91 10:02:00 Test Item Value Reference Range Interpretation Comments Eosinophils (test code = 2.0 See_Comment N [A utomated message] The Eosinophils) system which ge nerated this result tra nsmitted reference range : <=4.0. The reference r leo was not used to int erpret this result as normal/abnormal . [facility] CenterUhsjtpdHNBVECZTYC3812-90-80 10:02:00 Test Item Value Reference Range Interpretation Comments Segs (test code = Segs) 55.8 45.0-75.0 N [facility] CenterRfwpuhlMEVPYRVGBJ0226-56-45 10:02:00 Test Item Value Reference Range Interpretation Comments Lymphocytes (test code = Lymphocytes) 34.7 20.0-40.0 N [facility] CenterAfyeggzKXBYCALXRW2399-22-17 10:02:00 Test Item Value Reference Range Interpretation Comments PTT (test code = PTT) 32.2 s 22.9-35.8 N [facility] CenterRvwlkgsWAJMMOCCLK6328-99-04 10:02:00 Test Item Value Reference Range Interpretation Comments PT (test code = PT) 13.3 s 12.0-14.7 N [facility] CenterRlyymowYTTFCRPNYR3147-64-12 10:02:00 Test Item Value Reference Range Interpretation Comments INR (test code = INR) 1.01 0.85-1.17 N [facility] CenterPccbrqnAEUXNMVUQD2710-93-31 10:02:00 Test Item Value Reference Range Interpretation Comments Hct (test code = Hct) 27.5 36.0-48.0 L [facility] CenterKlxodxkBLQYVDYIRI8384-44-02 10:02:00 Test Item Value Reference Range Interpretation Comments RBC (test code = RBC) 3.34 4.20-5.40 L [facility] CenterAtktyipIIQJUQZDVU5356-75-72 10:02:00 Test Item Value Reference Range Interpretation Comments Hgb (test code = Hgb) 9.7 12.0-16.0 L [facility] CenterWxhteboKZNVOWNZJZ4802-77-63 10:02:00 Test Item Value Reference Range Interpretation Comments WBC (test code = WBC) 5.0 3.7-10.4 N [facility] CenterXghmcfkVPSESHTLCJ8254-36-63 10:02:00 Test Item Value Reference Range Interpretation Comments MPV (test code = MPV) 9.2 7.4-10.4 N [facility] CenterOsygxclSVZZYYGDKE0077-57-75 10:02:00 Test Item Value Reference Range Interpretation Comments Platelet (test code = Platelet) 240 133-450 N [facility] CenterRkpxqrpHROMKKVUYN3222-46-50 10:02:00 Test Item Value Reference Range Interpretation Comments RDW (test code = RDW) 14.3 11.5-14.5 N [facility] CenterOgjoppwOTIUMPHXAU6586-03-66 10:02:00 Test Item Value Reference Range Interpretation Comments MCHC (test code = MCHC) 35.2 32.0-36.0 N [facility] CenterNmngwlqXLLISEBWIF9531-84-75 10:02:00 Test Item Value Reference Range Interpretation Comments MCH (test code = MCH) 28.9 pg 27.0-31.0 N [facility] CenterHnwzikmYMEICUBRHU0065-00-71 10:02:00 Test Item Value Reference Range Interpretation Comments MCV (test code = MCV) 82.1 81.0-99.0 N [facility] TomballCfnrrriKYEEQJXQR0193-57-44 09:24:00 Test Item Value Reference Range Interpretation Comments Magnesium Lvl (test code = Magnesium 2.1 1.8-2.4 N Lvl) [facility]ZjhnmhcGbtuyumccjzh6462-39-34 00:32:00 Test Item Value Reference Range Interpretation Comments Culture: Aspirate/Body Fluid/Tissue (test code = Culture: Aspirate/Body Fluid/Tissue) [facility] HospitalSoypbboSlassbondmuw7562-18-09 00:32:00 Test Item Value Reference Range Interpretation Comments Culture: Anaerobic (test code = Culture: Anaerobic) [facility] TomballUoulisjXORWYDTWU7288-99-75 17:10:00 Test Item Value Reference Range Interpretation Comments Temp Roberth (test code = Temp Roberth) 37.0 [facility] TomballKffidegZZGRHAAHM5291-64-17 17:10:00 Test Item Value Reference Range Interpretation Comments O2 Sat Roberth (test code = O2 Sat Roberth) 27.0 40.0-70.0 L [facility] TomballHbayaawDGXSQJHVQ9824-78-20 17:10:00 Test Item Value Reference Range Interpretation Comments pCO2 Roberth (test code = pCO2 Roberth) 47 38-52 N [facility] TomballRktcsxxEGFWEOHWL8634-82-78 17:10:00 Test Item Value Reference Range Interpretation Comments pH Roberth (test code = pH Roberth) 7.37 7.28-7.42 N [facility] TomballNaoxhhaDFBGCQLOA5211-74-71 17:10:00 Test Item Value Reference Range Interpretation Comments BE Roberth (test code = 1 See_Comment N [Automa rohit message] The BE Roberth) system which ge nerated this result transmit rohit reference range : <=2. The reference range was not used to interpr et this result as reji l/abnormal. [facility] TomballNdzavpePMUSIOOLV6059-34-35 17:10:00 Test Item Value Reference Range Interpretation Comments HCO3 Roberth (test code = HCO3 Roberth) 27.2 22.0-26.0 H [facility] TomballNrxpcfyPMTKNYWJA6509-50-37 17:10:00 Test Item Value Reference Range Interpretation Comments pO2 Roberth (test code = pO2 Roberth) 19 20-49 L [facility] HospitalKrrpvniDmlrapwhbgll1033-33-60 14:18:00 Test Item Value Reference Range Interpretation Comments Culture: Blood (test code = Culture: Blood) [facility] HospitalMsetywrKjpiewpfspog0133-60-57 14:18:00 Test Item Value Reference Range Interpretation Comments Culture: Wound/Abscess w/Gram Stain (test code = Culture: Wound/Abscess w/Gram Stain) [facility] TomballWzmrmwzLUMFWXENW4829-96-09 13:09:00 Test Item Value Reference Range Interpretation Comments Lactic Acid Lvl (test code = Lactic 1.0 0.5-2.2 N Acid Lvl) [facility] TomballDffdlhjUGMOWCXHH2408-43-98 12:20:00 Test Item Value Reference Range Interpretation Comments U Preg (test code = U Negative (09/01/2011 N Preg) 07:20:00) [facility]CujkmgjJKNSWMRZIE6731-92-02 12:20:00 Test Item Value Reference Range Interpretation Comments UA Sq Epi (test code Occasional /LPF N = UA Sq Epi) (09/01/2011 07:20:00) [facility]dunvgnTLONTJHTFE5988-84-88 12:20:00 Test Item Value Reference Range Interpretation Comments UA Leuk Est (test Negative (09/01/2011 N code = UA Leuk Est) 07:20:00) [facility]DtujxjwTNOFFOPPYL6500-39-93 12:20:00 Test Item Value Reference Range Interpretation Comments UA Nitrite (test code Negative (09/01/2011 N = UA Nitrite) 07:20:00) [facility]CpfwndnDEAKLKRCKF9007-44-19 12:20:00 Test Item Value Reference Range Interpretation Comments UA Urobilinogen (test code = UA 0.2 0.1-1.0 N Urobilinogen) [facility]EisiovdLJOOGDKKWI0794-39-25 12:20:00 Test Item Value Reference Range Interpretation Comments UA Blood (test code = Negative (09/01/2011 N UA Blood) 07:20:00) [facility] HospitalKkbkyqqFSSHLIBWOB1483-54-03 12:20:00 Test Item Value Reference Range Interpretation Comments UA Ketones (test code = >=80 mg/dL A UA Ketones) *ABN*(09/01/2011 07:20:00) [facility] HospitalNtexossJXGVQWANNE2245-19-51 12:20:00 Test Item Value Reference Range Interpretation Comments UA Protein (test code Negative (09/01/2011 N = UA Protein) 07:20:00) [facility] HospitalSamyvueBFVQBTRQCN5375-21-34 12:20:00 Test Item Value Reference Range Interpretation Comments UA pH (test code = UA pH) 6.0 1 5.0-8.0 N [facility] HospitalBmvaoeqYMKHQNZDAA5347-79-50 12:20:00 Test Item Value Reference Range Interpretation Comments UA Bili (test code = Negative (09/01/2011 N UA Bili) 07:20:00) [facility] HospitalEhdtwtnVOKPRKCSDT5515-18-41 12:20:00 Test Item Value Reference Range Interpretation Comments UA Glucose (test code = >=1000 mg/dL A UA Glucose) *ABN*(09/01/2011 07:20:00) [facility] HospitalAoqvivhGFUDDJODGB7016-28-55 12:20:00 Test Item Value Reference Range Interpretation Comments UA Spec Grav (test code = UA Spec 1.035 1 H Grav) [facility] HospitalKkecwkmNWAWKCATON2054-38-93 12:20:00 Test Item Value Reference Range Interpretation Comments UA Turbidity (test code = Clear (09/01/2011 N UA Turbidity) 07:20:00) [facility] HospitalSoszzykFZFLSAEYQM6567-52-87 12:20:00 Test Item Value Reference Range Interpretation Comments UA Color (test code = Yellow *NA*(09/01/2011 UA Color) 07:20:00) [facility] TomballRxkvoooLTBYQORYC7175-60-30 08:00:00 Test Item Value Reference Range Interpretation Comments Lactic Acid Lvl (test code = Lactic 2.8 0.5-2.2 H Acid Lvl) [facility] TomballWljeokhYZPWTDQVG9097-41-37 07:47:00 Test Item Value Reference Range Interpretation Comments Magnesium Lvl (test code = Magnesium 1.5 1.8-2.4 L Lvl) [facility]DjjruvaINBXBINWAT9258-11-63 07:47:00 Test Item Value Reference Range Interpretation Comments Polychrom (test code = Slight (09/01/2011 N Polychrom) 02:47:00) [facility] CenterCiksmqpCLPUVBOTYI8591-64-64 07:47:00 Test Item Value Reference Range Interpretation Comments Anisocyte (test code = 1+ *ABN*(09/01/2011 A Anisocyte) 02:47:00) [facility] CenterKhrajzvGQEMKFMMCV9291-32-07 07:47:00 Test Item Value Reference Range Interpretation Comments Large Plt (test code = Slight *ABN*(09/01/2011 A Large Plt) 02:47:00) [facility] CenterDnyzzceTPRHNVKNNR1622-85-64 07:47:00 Test Item Value Reference Range Interpretation Comments Tear Cell (test code = Tear Cell) [facility]ional [facility] CenterEboijerQKGYJYIWBB2728-48-70 07:47:00 Test Item Value Reference Range Interpretation Comments Elliptocyte (test code = Slight A Elliptocyte) *ABN*(09/01/2011 02:47:00) [facility] GLUCOSE QVLDZPC2366-01-51 17:02:00 Test Item Value Reference Range Interpretation Comments Comment1 (test code = Comment1) Notify RN/ [facility] GLUCOSE KCLRZZW5191-22-08 17:02:00 Test Item Value Reference Range Interpretation Comments Gluc POC Lifscn (test code = Gluc POC 134 65-110 H Lifscn) [facility] GLUCOSE CWEJFWW1553-78-14 13:45:00 Test Item Value Reference Range Interpretation Comments Gluc POC Lifscn (test code = Gluc POC 182 65-110 H Lifscn) [facility] GLUCOSE VTQLUNH6768-29-39 13:45:00 Test Item Value Reference Range Interpretation Comments Comment1 (test code = Comment1) Notify RN/ [facility]PhucecwEIPOQSGZV7749-16-36 10:22:00 Test Item Value Reference Range Interpretation Comments Phosphorus (test code = Phosphorus) 3.0 2.5-4.5 N [facility] TomballNdsktnuXITBTFRQC7094-07-91 10:22:00 Test Item Value Reference Range Interpretation Comments Magnesium Lvl (test code = Magnesium 1.8 1.8-2.4 N Lvl) [facility]ballVcxdgwkZECFVRGZL9511-26-74 10:22:00 Test Item Value Reference Range Interpretation Comments Chloride Lvl (test code = Chloride Lvl) 107 95-109 N [facility] TomballLabtodkKJVCWJOON2197-46-60 10:22:00 Test Item Value Reference Range Interpretation Comments Potassium Lvl (test code = Potassium 3.0 3.5-5.1 A Lvl) [facility]ballEqgwqvuRZTUUXGIJ2230-07-03 10:22:00 Test Item Value Reference Range Interpretation Comments Sodium Lvl (test code = Sodium Lvl) 141 135-145 N [facility] TomballBgovlrdMTFQVUNRZ5005-55-25 10:22:00 Test Item Value Reference Range Interpretation Comments Creatinine Lvl (test code = Creatinine 0.6 0.5-1.4 N Lvl) [facility] TomballCfkukksHDATIXDZW1331-32-71 10:22:00 Test Item Value Reference Range Interpretation Comments CO2 (test code = CO2) 23 24-32 L [facility] TomballVboeufrOSTTADAJF0603-70-75 10:22:00 Test Item Value Reference Range Interpretation Comments Calcium Lvl (test code = Calcium Lvl) 7.3 8.5-10.5 L [facility] TomballVzmlanbAMAISVVFF9071-45-90 10:22:00 Test Item Value Reference Range Interpretation Comments Glucose Lvl (test code = Glucose Lvl) 136 [facility] TomballQdgzcmcIROSKTNVV2089-14-56 10:22:00 Test Item Value Reference Range Interpretation Comments AGAP (test code = AGAP) 14.0 10.0-20.0 N [facility] TomballGkiwfhtXRKFTJPBP1954-91-47 10:22:00 Test Item Value Reference Range Interpretation Comments BUN (test code = BUN) 5 7-22 [facility]WzfouyqUEWDTRVKYD0041-01-57 10:22:00 Test Item Value Reference Range Interpretation Comments Segs (test code = Segs) 69.6 45.0-75.0 N [facility] CenterRdvafhuIMHOACKKHA9854-99-85 10:22:00 Test Item Value Reference Range Interpretation Comments Lymphocytes (test code = Lymphocytes) 21.5 20.0-40.0 N [facility] CenterGtoifuwHGKGZZZXBA7984-05-74 10:22:00 Test Item Value Reference Range Interpretation Comments Monocytes (test code = Monocytes) 7.6 2.0-12.0 N [facility] CenterCmnqfvbZOUFJSEQGN5915-75-80 10:22:00 Test Item Value Reference Range Interpretation Comments Eosinophils (test code = 1.0 See_Comment N [A utomated message] The Eosinophils) system which ge nerated this result tra nsmitted reference range : <=4.0. The reference r leo was not used to int erpret this result as normal/abnormal . [facility] CenterXodqsosJBKUNKPQOE6762-05-51 10:22:00 Test Item Value Reference Range Interpretation Comments Basophils (test code = 0.3 See_Comment N [Aut omated message] The Basophils) system which ge nerated this result tra nsmitted reference range : <=1.0. The reference r leo was not used to int erpret this result as normal/abnormal . [facility] CenterRyyhzbpSAEDGFDTKS7308-23-70 10:22:00 Test Item Value Reference Range Interpretation Comments Segs-Bands # (test code = Segs-Bands #) 4.8 1.5-8.1 N [facility] CenterIlxarigOQNKEAWAOI8974-05-77 10:22:00 Test Item Value Reference Range Interpretation Comments Eosinophils # (test code 0.1 See_Comment N [A utomated message] The = Eosinophils #) system psychiatric h generated this result tra nsmitted reference range : <=0.5. The reference r leo was not used to int erpret this result as normal/abnormal . [facility] CenterBrjysptTRFUYZIDSR8877-25-48 10:22:00 Test Item Value Reference Range Interpretation Comments Lymphocytes # (test code = Lymphocytes 1.5 1.0-5.5 N #) [facility] CenterSmutykvHLXBMTVLRJ8118-94-90 10:22:00 Test Item Value Reference Range Interpretation Comments Monocytes # (test code 0.5 See_Comment N [Aut omated message] The = Monocytes #) system which generated this result tra nsmitted reference range : <=0.8. The reference r leo was not used to int erpret this result as normal/abnormal . [facility] CenterFzddogoKMVUQZXQEJ8597-31-21 10:22:00 Test Item Value Reference Range Interpretation Comments Basophils # (test code 0.0 See_Comment N [Aut omated message] The = Basophils #) system which generated this result tra nsmitted reference range : <=0.2. The reference r leo was not used to int erpret this result as normal/abnormal . [facility] CenterMdjrnmtCFTWSZPSGZ4982-74-04 10:22:00 Test Item Value Reference Range Interpretation Comments MPV (test code = MPV) 11.0 7.4-10.4 H [facility] CenterPcjlvwtDFKMVKYHXL1962-04-83 10:22:00 Test Item Value Reference Range Interpretation Comments Platelet (test code = Platelet) 161 133-450 N [facility] CenterWxhisddTMHNMLPHBK6735-13-77 10:22:00 Test Item Value Reference Range Interpretation Comments MCH (test code = MCH) 29.6 pg 27.0-31.0 N [facility] CenterNvabidxUXUYGEHCXR9101-31-48 10:22:00 Test Item Value Reference Range Interpretation Comments MCHC (test code = MCHC) 35.4 32.0-36.0 N [facility] CenterQllgxalJYVELVWSKZ0844-05-83 10:22:00 Test Item Value Reference Range Interpretation Comments RDW (test code = RDW) 14.1 11.5-14.5 N [facility] CenterIlyglpcSPKFLVBLOS2670-04-83 10:22:00 Test Item Value Reference Range Interpretation Comments WBC (test code = WBC) 6.8 3.7-10.4 N [facility] CenterZztxikyOSUIOGDFYF9412-46-83 10:22:00 Test Item Value Reference Range Interpretation Comments MCV (test code = MCV) 83.5 81.0-99.0 N [facility] CenterTlkbkxvTHUJIPBGEL7799-42-52 10:22:00 Test Item Value Reference Range Interpretation Comments RBC (test code = RBC) 4.44 4.20-5.40 N [facility] CenterVzhttyoBBCQEHCXQD6901-94-40 10:22:00 Test Item Value Reference Range Interpretation Comments Hgb (test code = Hgb) 13.1 12.0-16.0 N [facility] CenterHiznlftXFAXDXBFQW8783-86-97 10:22:00 Test Item Value Reference Range Interpretation Comments Hct (test code = Hct) 37.1 36.0-48.0 N [facility] GLUCOSE NBGCNSS0815-28-16 02:20:00 Test Item Value Reference Range Interpretation Comments Comment1 (test code = Comment1) [facility]coy [facility] GJJIHFN1444-95-59 02:20:00 Test Item Value Reference Range Interpretation Comments Gluc POC Lifscn (test code = Gluc POC 332 65-110 H Lifscn) [facility]ballKgowpfaEHMZZSDZV9202-89-17 09:47:00 Test Item Value Reference Range Interpretation Comments Phosphorus (test code = Phosphorus) 2.5 2.5-4.5 N [facility] TomballVrofugyOHUDAJTZR6460-83-49 09:47:00 Test Item Value Reference Range Interpretation Comments Glucose Lvl (test code = Glucose Lvl) 201 [facility] TomballVaidfafYLRCXRQRU9253-88-86 09:47:00 Test Item Value Reference Range Interpretation Comments BUN (test code = BUN) 7 7-22 N [facility] TomballPhxzvuhXJKKMMCBB8819-39-26 09:47:00 Test Item Value Reference Range Interpretation Comments CO2 (test code = CO2) 19 24-32 L [facility] TomballGdmncawGBHDXYMAB4132-53-59 09:47:00 Test Item Value Reference Range Interpretation Comments Creatinine Lvl (test code = Creatinine 0.3 0.5-1.4 L Lvl) [facility] TomballOwjtjtiRIJELKEBW5024-33-03 09:47:00 Test Item Value Reference Range Interpretation Comments Sodium Lvl (test code = Sodium Lvl) 137 135-145 N [facility] TomballSjshdraASFUXRINP2734-22-07 09:47:00 Test Item Value Reference Range Interpretation Comments Chloride Lvl (test code = Chloride Lvl) 103 95-109 N [facility] TomballIppyddrZJYKDLMGN9369-18-28 09:47:00 Test Item Value Reference Range Interpretation Comments Potassium Lvl (test code = Potassium 3.6 3.5-5.1 N Lvl) [facility] TomballNvpvoluFOYKBTIXJ8970-07-53 09:47:00 Test Item Value Reference Range Interpretation Comments Calcium Lvl (test code = Calcium Lvl) 7.9 8.5-10.5 L [facility] TomballUjdwirjDAIWFFHWX0091-82-53 09:47:00 Test Item Value Reference Range Interpretation Comments AGAP (test code = AGAP) 18.6 10.0-20.0 N [facility] TomballGoyjutfLNCTZDUIG7974-96-04 09:47:00 Test Item Value Reference Range Interpretation Comments Magnesium Lvl (test code = Magnesium 1.6 1.8-2.4 L Lvl) [facility] CenterPefhfkyUMSDMPYDJA9422-59-34 09:47:00 Test Item Value Reference Range Interpretation Comments Basophils # (test code 0.0 See_Comment N [Aut omated message] The = Basophils #) system which generated this result tra nsmitted reference range : <=0.2. The reference r leo was not used to int erpret this result as normal/abnormal . [facility] CenterPvyjdjqXKJZAWBJNL0885-48-61 09:47:00 Test Item Value Reference Range Interpretation Comments Eosinophils (test code = 0.4 See_Comment N [A utomated message] The Eosinophils) system which ge nerated this result tra nsmitted reference range : <=4.0. The reference r leo was not used to int erpret this result as normal/abnormal . [facility] CenterPurwsurZDBOLUIRKY7090-26-05 09:47:00 Test Item Value Reference Range Interpretation Comments Basophils (test code = 0.5 See_Comment N [Aut omated message] The Basophils) system which ge nerated this result tra nsmitted reference range : <=1.0. The reference r leo was not used to int erpret this result as normal/abnormal . [facility] CenterKdcazzeLCANBJCNPY0937-99-89 09:47:00 Test Item Value Reference Range Interpretation Comments Segs-Bands # (test code = Segs-Bands #) 5.9 1.5-8.1 N [facility] CenterGdeefonWJZVRGSLIV5813-00-19 09:47:00 Test Item Value Reference Range Interpretation Comments Lymphocytes # (test code = Lymphocytes 1.2 1.0-5.5 N #) [facility] CenterAqnclbsYXKGXVFUEW2084-38-37 09:47:00 Test Item Value Reference Range Interpretation Comments Monocytes # (test code 0.5 See_Comment N [Aut omated message] The = Monocytes #) system which generated this result tra nsmitted reference range : <=0.8. The reference r leo was not used to int erpret this result as normal/abnormal . [facility] CenterFjitjupTOXWSAMNIK4402-66-94 09:47:00 Test Item Value Reference Range Interpretation Comments Eosinophils # (test code 0.0 See_Comment N [A utomated message] The = Eosinophils #) system whic h generated this result tra nsmitted reference range : <=0.5. The reference r leo was not used to int erpret this result as normal/abnormal . [facility] CenterZokjmsdLKVBUHZBFJ3839-62-20 09:47:00 Test Item Value Reference Range Interpretation Comments Segs (test code = Segs) 76.9 45.0-75.0 H [facility] CenterDrbvmajQQCITNIUJX0511-12-29 09:47:00 Test Item Value Reference Range Interpretation Comments Lymphocytes (test code = Lymphocytes) 15.9 20.0-40.0 L [facility] CenterDoplevuVBHWEYTJCU1790-91-84 09:47:00 Test Item Value Reference Range Interpretation Comments Monocytes (test code = Monocytes) 6.3 2.0-12.0 N [facility] CenterHahjmtnSOLDCZISHS1896-05-95 09:47:00 Test Item Value Reference Range Interpretation Comments MCV (test code = MCV) 82.8 81.0-99.0 N [facility] CenterHwowuqpPXAOKHLVCX6202-82-08 09:47:00 Test Item Value Reference Range Interpretation Comments Hct (test code = Hct) 39.7 36.0-48.0 N [facility] CenterJmrsnzkETITYZVYDO8643-08-30 09:47:00 Test Item Value Reference Range Interpretation Comments MCH (test code = MCH) 29.1 pg 27.0-31.0 N [facility] CenterTifftslZUUGZIQFIE4617-39-69 09:47:00 Test Item Value Reference Range Interpretation Comments Hgb (test code = Hgb) 14.0 12.0-16.0 N [facility] CenterQdhjoxmYQWSRAUBBT4789-72-41 09:47:00 Test Item Value Reference Range Interpretation Comments MCHC (test code = MCHC) 35.2 32.0-36.0 N [facility] CenterQpnfycdXQZNZYGXRE2218-26-73 09:47:00 Test Item Value Reference Range Interpretation Comments RDW (test code = RDW) 13.9 11.5-14.5 N [facility] CenterVxyynhdJXRRYRXHZF9585-04-44 09:47:00 Test Item Value Reference Range Interpretation Comments Platelet (test code = Platelet) 160 133-450 N [facility] CenterXmjtgzpPPRLCBPXPJ9568-73-07 09:47:00 Test Item Value Reference Range Interpretation Comments MPV (test code = MPV) 11.9 7.4-10.4 H [facility] CenterHwurebtUVNKIPJEKI9532-78-80 09:47:00 Test Item Value Reference Range Interpretation Comments WBC (test code = WBC) 7.7 3.7-10.4 N [facility] CenterLbaexfySVFLTYDVJK9675-87-11 09:47:00 Test Item Value Reference Range Interpretation Comments RBC (test code = RBC) 4.80 4.20-5.40 N [facility]ballWastwvrMLEFWISOT9601-39-08 10:28:00 Test Item Value Reference Range Interpretation Comments Phosphorus (test code = Phosphorus) 2.6 2.5-4.5 N [facility] TomballEkhewddGZKNTNCNK5721-40-65 10:28:00 Test Item Value Reference Range Interpretation Comments Magnesium Lvl (test code = Magnesium 1.8 1.8-2.4 N Lvl) [facility] TomballJysybmjABJIMNCKN5175-64-50 10:28:00 Test Item Value Reference Range Interpretation Comments Potassium Lvl (test code = Potassium 3.7 3.5-5.1 N Lvl) [facility] TomballTuvorbfZLUNCOTLN1863-46-01 10:28:00 Test Item Value Reference Range Interpretation Comments Sodium Lvl (test code = Sodium Lvl) 137 135-145 N [facility] TomballIigcptpPCECJJRFE5890-34-52 10:28:00 Test Item Value Reference Range Interpretation Comments Creatinine Lvl (test code = Creatinine 0.6 0.5-1.4 N Lvl) [facility]ballEdhfjbcPTDDBBFRP2124-74-32 10:28:00 Test Item Value Reference Range Interpretation Comments BUN (test code = BUN) 16 7-22 N [facility] TomballGfcvphsWOSSKHYZQ1998-92-39 10:28:00 Test Item Value Reference Range Interpretation Comments Glucose Lvl (test code = Glucose Lvl) 200 [facility] TomballNndfagpHSGDSUHNN1872-11-52 10:28:00 Test Item Value Reference Range Interpretation Comments Calcium Lvl (test code = Calcium Lvl) 8.3 8.5-10.5 L [facility] TomballRhxhamiCOFCHLMAB7696-88-05 10:28:00 Test Item Value Reference Range Interpretation Comments AGAP (test code = AGAP) 19.7 10.0-20.0 N [facility] TomballUfdkbosJZWKBPBTS4728-81-67 10:28:00 Test Item Value Reference Range Interpretation Comments Chloride Lvl (test code = Chloride Lvl) 99 95-109 N [facility] TomballRbdiaufYLDNBTGXS8743-62-78 10:28:00 Test Item Value Reference Range Interpretation Comments CO2 (test code = CO2) 22 24-32 L [facility] CenterWjoytcmYAYPJFPJNC6134-88-14 10:28:00 Test Item Value Reference Range Interpretation Comments Platelet (test code = Platelet) 172 133-450 N [facility] CenterBpqjxmxFXPDKOOFEK5716-00-90 10:28:00 Test Item Value Reference Range Interpretation Comments MPV (test code = MPV) 12.0 7.4-10.4 H [facility] CenterAanhngePDJJSEBVLZ3238-39-91 10:28:00 Test Item Value Reference Range Interpretation Comments WBC (test code = WBC) 7.3 3.7-10.4 N [facility] CenterLsilrovIOYRLGKMFQ6260-95-74 10:28:00 Test Item Value Reference Range Interpretation Comments RDW (test code = RDW) 14.6 11.5-14.5 H [facility] CenterXzcfdxrSKOAFHZTCG2227-15-54 10:28:00 Test Item Value Reference Range Interpretation Comments MCHC (test code = MCHC) 35.0 32.0-36.0 N [facility] CenterMgmrmjvZFDLKWTZHH8046-00-91 10:28:00 Test Item Value Reference Range Interpretation Comments RBC (test code = RBC) 4.54 4.20-5.40 N [facility] CenterRngydhrDCCCXGIXWF2053-64-95 10:28:00 Test Item Value Reference Range Interpretation Comments Hct (test code = Hct) 37.6 36.0-48.0 N [facility] CenterGiiuzloNCXBXJSGOR0553-92-03 10:28:00 Test Item Value Reference Range Interpretation Comments MCV (test code = MCV) 82.9 81.0-99.0 N [facility] CenterVuzpgcvRKAYXQKDJR1198-17-61 10:28:00 Test Item Value Reference Range Interpretation Comments MCH (test code = MCH) 29.0 pg 27.0-31.0 N [facility] CenterUkfjpheOZNZJHXHRC7693-70-65 10:28:00 Test Item Value Reference Range Interpretation Comments Hgb (test code = Hgb) 13.2 12.0-16.0 N [facility] CenterJkgrydtMAPHCHKFWH2927-65-93 10:28:00 Test Item Value Reference Range Interpretation Comments Elliptocyte (test code = Slight A Elliptocyte) *ABN*(08/21/2011 04:28:00) [facility] CenterXgghxidVAWYHRDXAQ3558-86-54 10:28:00 Test Item Value Reference Range Interpretation Comments Polychrom (test code = Slight (08/21/2011 N Polychrom) 04:28:00) [facility] CenterXwluwmiXRHVXPCPKY6850-07-82 10:28:00 Test Item Value Reference Range Interpretation Comments Basophils # (test code 0.0 See_Comment N [Aut omated message] The = Basophils #) system which generated this result tra nsmitted reference range : <=0.2. The reference r leo was not used to int erpret this result as normal/abnormal . [facility] CenterJqglqdnEFJQGSPNBG6244-83-72 10:28:00 Test Item Value Reference Range Interpretation Comments Hypochrom (test code = Slight (08/21/2011 N Hypochrom) 04:28:00) [facility] CenterJzgxelnNTTULAHGOG1567-94-62 10:28:00 Test Item Value Reference Range Interpretation Comments Monocytes # (test code 0.6 See_Comment N [Aut omated message] The = Monocytes #) system which generated this result tra nsmitted reference range : <=0.8. The reference r leo was not used to int erpret this result as normal/abnormal . [facility] CenterIgkuopzUZCPGRGSJR1201-10-85 10:28:00 Test Item Value Reference Range Interpretation Comments Eosinophils # (test code 0.0 See_Comment N [A utomated message] The = Eosinophils #) system whic h generated this result tra nsmitted reference range : <=0.5. The reference r leo was not used to int erpret this result as normal/abnormal . [facility] CenterRylnzztSDPLWDLKWQ8742-63-00 10:28:00 Test Item Value Reference Range Interpretation Comments Segs-Bands # (test code = Segs-Bands #) 5.3 1.5-8.1 N [facility] CenterCpxbstnQLLCSRJKHB9278-28-45 10:28:00 Test Item Value Reference Range Interpretation Comments Lymphocytes # (test code = Lymphocytes 1.3 1.0-5.5 N #) [facility] CenterBsirtqaUNVHXXZYGY7662-20-03 10:28:00 Test Item Value Reference Range Interpretation Comments Basophils (test code = 0.5 See_Comment N [Aut omated message] The Basophils) system which ge nerated this result tra nsmitted reference range : <=1.0. The reference r leo was not used to int erpret this result as normal/abnormal . [facility] CenterWnrzlprOMLBDRLWPV7943-36-42 10:28:00 Test Item Value Reference Range Interpretation Comments Monocytes (test code = Monocytes) 8.5 2.0-12.0 N [facility] CenterBswodktSFYNFJASOK7019-96-64 10:28:00 Test Item Value Reference Range Interpretation Comments Eosinophils (test code = 0.3 See_Comment N [A utomated message] The Eosinophils) system which ge nerated this result tra nsmitted reference range : <=4.0. The reference r leo was not used to int erpret this result as normal/abnormal . [facility] CenterQimdmdsADSYLFGYSV1248-81-70 10:28:00 Test Item Value Reference Range Interpretation Comments Lymphocytes (test code = Lymphocytes) 17.3 20.0-40.0 L [facility] CenterCvemmieAWPRULXBXC6932-53-17 10:28:00 Test Item Value Reference Range Interpretation Comments Segs (test code = Segs) 73.4 45.0-75.0 N [facility] GLUCOSE OLXFFDB9988-46-61 07:47:00 Test Item Value Reference Range Interpretation Comments Comment2 (test code = Comment2) Verify w/Lab [facility]ballAksgpwvYEJLRDVZE4820-09-49 21:58:00 Test Item Value Reference Range Interpretation Comments S Preg (test code = S Negative (08/19/2011 N Preg) 15:58:00) [facility] TomballFtvvvxuGPCCMRVWZ6308-69-95 21:58:00 Test Item Value Reference Range Interpretation Comments Lipase Lvl (test code = Lipase Lvl) 169 73-393 N [facility] TomballNnvesbgECYOOSUAU8325-94-83 21:58:00 Test Item Value Reference Range Interpretation Comments ALT (test code = ALT) 54 See_Comment N [Auto mated message] The system which ge nerated this result transmit rohit reference range : <=65. The reference range was not used to interpr et this result as reji l/abnormal. [facility] TomballZkykysxEXZMIRBIL0748-22-09 21:58:00 Test Item Value Reference Range Interpretation Comments Alk Phos (test code = Alk Phos) 110 39-136 N [facility] TomballNaptsnbRQYZHWAJY9515-31-87 21:58:00 Test Item Value Reference Range Interpretation Comments Bili Direct (test code 0.1 See_Comment N [Aut omated message] The = Bili Direct) system which generated this result tra nsmitted reference range : <=0.3. The reference r leo was not used to int erpret this result as reji l/abnormal. [facility] TomballZxouihoQCAATHRSK5677-56-31 21:58:00 Test Item Value Reference Range Interpretation Comments Bili Total (test code = Bili Total) 0.9 0.2-1.3 N [facility] TomballIeckuyeNSIICSBYE8389-40-04 21:58:00 Test Item Value Reference Range Interpretation Comments Albumin Lvl (test code = Albumin Lvl) 4.4 3.5-5.0 N [facility] TomballRsvucjkMOIMTLRPI5188-12-64 21:58:00 Test Item Value Reference Range Interpretation Comments Total Protein (test code = Total 8.8 6.4-8.4 H Protein) [facility] TomballWkocejrCIMZGMFTQ1868-44-38 21:58:00 Test Item Value Reference Range Interpretation Comments Bili Indirect (test 0.8 See_Comment N [Automa rohit message] The code = Bili Indirect) system which generated this result tra nsmitted reference range : <=1.0. The reference r leo was not used to int erpret this result as normal/abnormal . [facility] TomballHkwjguiHAMAOYULN9117-69-42 21:58:00 Test Item Value Reference Range Interpretation Comments AST (test code = AST) 36 See_Comment N [Auto mated message] The system which ge nerated this result transmit rohit reference range : <=37. The reference range was not used to interpr et this result as reji l/abnormal. [facility] TomballRvpcvdpVRVABXWGB0675-84-13 21:58:00 Test Item Value Reference Range Interpretation Comments Globulin (test code = Globulin) 4.4 2.0-4.0 H [facility] TomballSpottdtHFDLEAFDI6408-52-58 21:58:00 Test Item Value Reference Range Interpretation Comments A/G Ratio (test code = A/G Ratio) 1.0 0.7-1.6 N [facility]TqhtlqvMGUBBSOYFT0266-67-96 21:58:00 Test Item Value Reference Range Interpretation Comments UA Bacteria (test code Occasional /HPF N = UA Bacteria) (08/19/2011 15:58:00) [facility] HospitalLepjlnsDIFZREYWYO9314-91-96 21:58:00 Test Item Value Reference Range Interpretation Comments UA RBC (test 3-5 /HPF See_Comment A [Automated mes pastor] code = UA RBC) *ABN*(08/19/2011 The syste m which 15:58:00) generated this result transmitted ref erence range: <=2. The reference range was not used to int erpret this result as normal/abnormal . [facility]XkcnqtoVRJHTQCION4536-58-02 21:58:00 Test Item Value Reference Range Interpretation Comments UA WBC (test code = 3 See_Comment [Automa rohit message] The UA WBC) system which ge nerated this result transmit rohit reference range : <=5. The reference range was not used to interpr et this result as reji l/abnormal. [facility] HospitalKnswdtuTNGIUQEZUD0950-19-75 21:58:00 Test Item Value Reference Range Interpretation Comments UA Mucus (test code = Few /LPF (08/19/2011 N UA Mucus) 15:58:00) [facility]ieBpbdqlhMYEWNDLCVS8677-66-64 21:58:00 Test Item Value Reference Range Interpretation Comments UA Amorph Destiny (test Occasional /HPF A code = UA Amorph *ABN*(08/19/2011 Destiny) 15:58:00) [facility] [id number] 21:58:00 Test Item Value Reference Range Interpretation Comments UA Urobilinogen (test code = UA 0.2 0.1-1.0 N Urobilinogen) [id number] 21:58:00 Test Item Value Reference Range Interpretation Comments UA Sq Epi (test code = Rare /LPF (08/19/2011 N UA Sq Epi) 15:58:00) [id number] 21:58:00 Test Item Value Reference Range Interpretation Comments Micro? (test code = Performed (08/19/2011 N Micro?) 15:58:00) [id number] 21:58:00 Test Item Value Reference Range Interpretation Comments UA Leuk Est (test Negative (08/19/2011 N code = UA Leuk Est) 15:58:00) [facility]ieKakwmodVKQCERGDXQ0929-39-13 21:58:00 Test Item Value Reference Range Interpretation Comments UA Nitrite (test code Negative (08/19/2011 N = UA Nitrite) 15:58:00) [id number] 21:58:00 Test Item Value Reference Range Interpretation Comments UA pH (test code = UA pH) 5.5 1 5.0-8.0 N [facility]ieOevfqamROTUAHSYSD2573-61-08 21:58:00 Test Item Value Reference Range Interpretation Comments UA Blood (test code = Trace *ABN*(08/19/2011 A UA Blood) 15:58:00) [id number] 21:58:00 Test Item Value Reference Range Interpretation Comments UA Bili (test code = Negative (08/19/2011 N UA Bili) 15:58:00) [facility]J[id number] 21:58:00 Test Item Value Reference Range Interpretation Comments UA Ketones (test code = 80 mg/dL A UA Ketones) *ABN*(08/19/2011 15:58:00) [facility]MpoppipHJDTJWUGOJ0336-10-86 21:58:00 Test Item Value Reference Range Interpretation Comments UA Glucose (test code = >=1000 mg/dL A UA Glucose) *ABN*(08/19/2011 15:58:00) [facility] HospitalKlmtfdaJQWSABVXPQ0456-07-88 21:58:00 Test Item Value Reference Range Interpretation Comments UA Protein (test code Negative (08/19/2011 N = UA Protein) 15:58:00) [facility] HospitalLrgxywdSLXOATHZHB1149-51-18 21:58:00 Test Item Value Reference Range Interpretation Comments UA Turbidity (test code Slight Cloudy N = UA Turbidity) (08/19/2011 15:58:00) [facility] HospitalXkeaxbvVGEEJUWJMU4649-51-03 21:58:00 Test Item Value Reference Range Interpretation Comments UA Spec Grav (test code = UA Spec 1.025 1 Grav) [facility] HospitalLbisvzaUXOJXXIRZO3879-09-68 21:58:00 Test Item Value Reference Range Interpretation Comments UA Color (test code = Yellow (08/19/2011 N UA Color) 15:58:00) [facility]ballYuhahazCXLJVTARO6149-18-06 21:13:00 Test Item Value Reference Range Interpretation Comments AST (test code = AST) 23 See_Comment N [Auto mated message] The system which ge nerated this result transmit rohit reference range : <=37. The reference range was not used to interpr et this result as reji l/abnormal. [facility] TomballIkqdgmoJSQOIFKKT5155-04-58 21:13:00 Test Item Value Reference Range Interpretation Comments Bili Total (test code = Bili Total) 1.0 0.2-1.3 N [facility] TomballZpgangsZLWJBSPZO1874-54-87 21:13:00 Test Item Value Reference Range Interpretation Comments Alk Phos (test code = Alk Phos) 115 39-136 N [facility] TomballQkqrtnyGZHQXRJCT4365-57-29 21:13:00 Test Item Value Reference Range Interpretation Comments ALT (test code = ALT) 56 See_Comment N [Auto mated message] The system which ge nerated this result transmit rohit reference range : <=65. The reference range was not used to interpr et this result as reji l/abnormal. [facility] TomballDyzbpxlIJFWLVJEU2542-31-66 21:13:00 Test Item Value Reference Range Interpretation Comments Total Protein (test code = Total 9.0 6.4-8.4 H Protein) [facility] TomballBdbgetjWUINWENRU0604-04-64 21:13:00 Test Item Value Reference Range Interpretation Comments Albumin Lvl (test code = Albumin Lvl) 4.8 3.5-5.0 N [facility] TomballEexstblMYNMDPIXZ9921-19-46 21:13:00 Test Item Value Reference Range Interpretation Comments Globulin (test code = Globulin) 4.2 2.0-4.0 H [facility] TomballWamaloeVUJVGCIWT0649-08-48 21:13:00 Test Item Value Reference Range Interpretation Comments A/G Ratio (test code = A/G Ratio) 1.1 0.7-1.6 N [facility] Tomball[id number] 21:13:00 Test Item Value Reference Range Interpretation Comments B/C Ratio (test code = B/C Ratio) 30 6-25 [facility]cg[facility]fyBBZMPQMGUT8964-56-92 21:13:00 Test Item Value Reference Range Interpretation Comments RBC Morph (test code = Normal (08/19/2011 N RBC Morph) 15:13:00) [facility]MkafrfrYECCNYMZSZ0201-00-13 21:13:00 Test Item Value Reference Range Interpretation Comments Large Plt (test code = Slight *ABN*(08/19/2011 A Large Plt) 15:13:00) [facility] CenterUkzyjdrWVYQMMQEWO9152-72-02 21:13:00 Test Item Value Reference Range Interpretation Comments Atypical Lymphs (test code = Atypical 0.0 N Lymphs) [facility] HospitalFmsvvkqHPXKRMJDAZ5998-17-16 21:13:00 Test Item Value Reference Range Interpretation Comments Bands (test code = 0.0 See_Comment N [Automat ed message] The Bands) system which ge nerated this result transmit rohit reference range : <=11.0. The reference r leo was not used to interpr et this result as reji l/abnormal. [facility] TomballTfbeuryWOOXMYQHS5571-09-73 21:10:00 Test Item Value Reference Range Interpretation Comments O2 Sat Roberth (test code = O2 Sat Roberth) 74.0 40.0-70.0 H [facility] TomballAjkwaqoYUUOFYTFE0594-86-77 21:10:00 Test Item Value Reference Range Interpretation Comments Temp Roberth (test code = Temp Roberth) 37.0 [facility] TomballEgilvnrVUWOUTCHQ7788-00-63 21:10:00 Test Item Value Reference Range Interpretation Comments pO2 Roberth (test code = pO2 Roberth) 42 20-49 N [facility] TomballDdpviuvOWQDGMJHP6224-13-25 21:10:00 Test Item Value Reference Range Interpretation Comments HCO3 Roberth (test code = HCO3 Roberth) 17.3 22.0-26.0 L [facility] TomballWckwgxoONANRYYQY9565-56-05 21:10:00 Test Item Value Reference Range Interpretation Comments pH Roberth (test code = pH Roberth) 7.34 7.28-7.42 N [facility] TomballQvojpyfBUUYGNWVE2843-40-73 21:10:00 Test Item Value Reference Range Interpretation Comments pCO2 Roberth (test code = pCO2 Roberth) 32 38-52 L [facility] Tomb[id number] 21:10:00 Test Item Value Reference Range Interpretation Comments BE Roberth (test code = -7 See_Comment L [Automa rohit message] The BE Roberth) system which ge nerated this result transmit rohit reference range : <=2. The reference range was not used to interpr et this result as reji l/abnormal. [facility] HospitalLnmumjtFBXEIHRRAD2312-03-80 20:34:00 Test Item Value Reference Range Interpretation Comments CDC-HIV 1/2 Ab (test Negative *NA*(08/19/2011 code = CDC-HIV 1/2 14:34:00) Ab) [facility]
[2022-08-08] MEDS ORDERED: FENTANYL CITR 100 MCG/2 ML ONE (20:35)
[2022-08-08] MEDS ORDERED: ONDANSETRON 4 MG/2 ML VIAL ONE (20:35)
[2022-08-08] MEDS ORDERED: NA CHLORIDE 0.9% 1,000 ML ONE (20:35)
[2022-08-08 21:27] LABS: Albumin 3.3 g/dL (3.4-5.0); Bilirubin Total 0.5 mg/dL (0.2-1.0); Potassium 3.8 mmol/L (3.5-5.1); Protein, Total 6.6 g/dL (6.4-8.2); Troponin High Sensitivity 14.7 pg/mL (<58.9)
[2022-08-08 22:22] LABS: Absolute Lymphocytes (CBC) 1.4 K/uL (0.7-4.9); Hematocrit 25.1 % (36.0-45.0); Lymphocytes % 28.5 % (15.3-44.8); MCV 89.1 fL (80-100); MPV 9.6 fL (7.6-11.3); RBC Red Blood Cell Count 2.81 M/uL (3.86-4.86)
[2022-08-08] MEDS ORDERED: LABETALOL 20 MG/4ML SYRINGE IV ONE (22:44)
[2022-08-08] MEDS ORDERED: ACETAMINOPHEN 500 MG TAB ONE (23:00)
[2022-08-08 23:23] LABS: Anisocytosis 2+; Blood Morphology Comment NOTED (NOT SEEN); Burr Cells 1+; Hypochromasia 2+; Ovalocytes 2+; Platelet Estimate DECR; White Blood Cell Scan OK (OK)
[2022-08-09] MEDS ORDERED: KETAMINE HCL 500 MG/5 ML VIAL ONE (00:30)
[2022-08-09] MEDS ORDERED: NA CHLORIDE 0.9% 50 ML ONE (00:30)
--- NOTE | 2022-08-09 01:38 | EDPHYS ---
Physician Documentation [facility] Name: Cathi Zaldivar Age: 41 yrs Sex: Female : 1980 Arrival Date: 08/08/2022 Time: 19:16 Bed 20 Private MD: Jose Miguel Morin ED Physician Janie Melo HPI: 08/08 23:01 This 41 yrs old Female presents to ER via Wheelchair with complaints of sd2 Abdominal Pain. 23:01 41-year-old female with a history of gastroparesis presents with chief complaint of sd2 abdominal pain. She reports generalized abdominal pain that started this afternoon after she ate chicken. She reports she was told that she could start eating chicken again but does not think it affected her well. She does states she did have a small amount of vomiting and took a Reglan at home which she was able to keep down and her nausea has improved. She complains of continued abdominal pain that is consistent with her prior gastroparesis flares in the past. She denies any fevers, diarrhea or urinary symptoms.. Historical: - Allergies: 19:23 ambien; as6 19:23 Codeine; as6 19:23 GUAIFENESIN; as6 19:23 Lisinopril; as6 19:23 Morphine; as6 19:23 Nitrofurantoin Macrocrystal; as6 19:23 PENICILLINS; as6 19:23 Prolixin; as6 19:23 zolpidem tartrate; as6 - PMHx: 19:23 "mental problems"; cardiac arrest; CHF; chronic kidney disease; cyclic vomiting as6 syndrome; Diabetes - NIDDM; Dialysis; m-w-f; ENCEPHALOPATHY; Gastroparesis; Hypertension; ibs; liver failure; PERIPHERAL NEUROPATHY; pseudo aneurysm R groin; Seizures; - PSHx: 19:23 section; dialysis catheter R chest wall; eye removed; as6 - Immunization history:: Client reports having NOT received the Covid vaccine. Flu vaccine is up to date. - Social history:: Smoking status: Patient reports the use of cigarette tobacco products, denies chronic smoking, but will smoke occasionally. ROS: 23:01 Constitutional: Negative for fever, chills, and weight loss, Eyes: Negative for injury, sd2 pain, redness, and discharge, Cardiovascular: Negative for chest pain, palpitations, and edema, Respiratory: Negative for shortness of breath, cough, wheezing. 23:01 MS/Extremity: Negative for injury and deformity, Skin: Negative for injury, rash, and discoloration, Neuro: Negative for headache, numbness and tingling. 23:01 Abdomen/GI: Positive for abdominal pain, nausea and vomiting, Negative for diarrhea. Exam: 23:01 Constitutional: This is a well developed, well nourished patient who is awake, alert, sd2 and in no acute distress. Head/Face: Normocephalic, atraumatic. Eyes: EOMI, normal conjunctiva bilaterally Chest/axilla: Normal chest wall appearance and motion. Nontender with no deformity. Cardiovascular: Regular rate and rhythm with a normal S1 and S2. No gallops, murmurs, or rubs. 2+ distal pulses. Respiratory: Lungs have equal breath sounds bilaterally, clear to auscultation and percussion. No rales, rhonchi or wheezes noted. No increased work of breathing, no retractions or nasal flaring. Abdomen/GI: Soft, ND, mild generalized tenderness without rebound or guarding Skin: Warm, dry with normal turgor. Normal color with no rashes, no lesions, and no evidence of cellulitis. MS/ Extremity: Pulses equal, no cyanosis. Neurovascular intact. Full, normal range of motion. Ambulatory without difficulty. Psych: Awake, alert, with orientation to person, place and time. Behavior, mood, and affect are within normal limits. 23:01 ECG was reviewed by the Attending Physician. NSR, rate 82, no STEMI criteria Vital Signs: 19:21 BP 224 / 111; Pulse 85; Resp 18 S; Temp 97.9(O); Pulse Ox 100% on R/A; Weight 75.2 kg as6 (M); Height 5 ft. 1 in. (154.94 cm) (R); Pain 10/10; 21:42 BP 213 / 101; Pulse 83; Pulse Ox 93% ; vc1 22:36 BP 196 / 102; vc1 22:48 BP 179 / 99; Pulse 84; vc1 08/09 00:05 BP 179 / 85; Pulse 78; Resp 18; Pulse Ox 100% on 2.5 lpm NC; vc1 00:40 BP 188 / 95; vc1 08/08 19:21 Body Mass Index 31.32 (75.20 kg, 154.94 cm) as6 MDM: 08/08 19:44 Patient medically screened. sd2 23:01 Differential Diagnosis. sd2 08/09 01:33 Data reviewed: vital signs, nurses notes, lab test result(s), EKG. Consideration of sd2 Admission/Observation Escalation of care including admission/observation considered. I considered the following discharge prescriptions or medication management in the emergency department Medications were administered in the Emergency Department. See MAR. Independent interpretation of the following test(s) in the Emergency Department EKG: See my EKG interpretation above. 01:33 Historians other than the Patient: Spouse/Significant Other: . Care significantly sd2 affected by the following chronic conditions: Hypertension, Congestive Heart Failure, Chronic Kidney Disease. Counseling: I had a detailed discussion with the patient and/or guardian regarding: the historical points, exam findings, and any diagnostic results supporting the discharge/admit diagnosis, lab results, the need for outpatient follow up, to return to the emergency department if symptoms worsen or persist or if there are any questions or concerns that arise at home. ED course: Pain improved with treatment in ER especially with Ketamine. pt resting comfortably. Benign abdominal exam. Pt ready for discharge and verbalizes understanding of discharge plan and strict return precautions.. 08/08 20:23 Order name: CBC with Diff sd2 08/08 20:23 Order name: CMP sd2 08/08 20:23 Order name: Lipase sd2 08/08 20:23 Order name: Troponin High Sensitivity 2 08/08 20:23 Order name: Urine Microscopic Only 2 08/08 21:31 Order name: Comprehensive Metabolic Panel; Complete Time: 22:30 EDMS 08/08 21:31 Order name: Troponin High Sensitivity; Complete Time: 22:30 EDMS 08/08 21:31 Order name: Lipase; Complete Time: 22:30 EDMS 08/08 22:35 Order name: CBC with Automated Diff; Complete Time: 23:41 EDMS 08/08 23:23 Order name: CBC Smear Scan; Complete Time: 23:41 EDMS 08/08 20:23 Order name: EKG - Nurse/Tech; Complete Time: 22:53 sd2 Administered Medications: 08/08 20:34 Not Given (Physician Discretion): NS 0.9% 1000 ml IV at 1 bolus Per protocol; 1000 mL sd2 bolus 21:35 Drug: Zofran (Ondansetron) 4 mg Route: IVP; Site: Other; vc1 21:37 Drug: fentaNYL (PF) 75 mcg Route: IVP; Site: Other; vc1 21:41 Drug: NS 0.9% 500 ml {Note: Chest.} Route: IV; Rate: bolus; Site: Other; vc1 22:47 Drug: Labetalol 20 mg Route: IV; Rate: bolus; Infused Over: 2 mins; Site: Other; vc1 22:57 Drug: Tylenol 1000 mg Route: PO; vc1 08/09 00:35 Drug: Ketamine 0.2 mg/kg Route: IVP; Site: Other; vc1 02:03 Not Given (Other Intervention Used): Valium (diazepam) 2 mg IVP once vc1 Disposition Summary: 08/09/22 01:37 Discharge Ordered Location: Home sd2 Problem: new sd2 Symptoms: have improved sd2 Condition: Stable sd2 Diagnosis - Abdominal pain, Generalized sd2 - Nausea with vomiting, unspecified sd2 Followup: sd2 - With: Private Physician - When: 2 - 3 days - Reason: Recheck today's complaints, Continuance of care, Re-evaluation by your physician Discharge Instructions: - Discharge Summary Sheet sd2 - Abdominal Pain, Adult sd2 - Nausea and Vomiting, Adult sd2 Forms: - Medication Reconciliation Form sd2 - Thank You Letter sd2 - Antibiotic Education sd2 - Prescription Opioid Use sd2 Signatures: Dispatcher [employer] Yuri Rosado RN RN as6 Maria M Gonzalez RN RN vc1 Janie Melo MD MD sd2
--- NOTE | 2022-08-09 01:38 | ER ---
Nurse's Notes [facility] Name: Cathi Zaldivar Age: 41 yrs Sex: Female : 1980 Arrival Date: 08/08/2022 Time: 19:16 Bed 20 Private MD: Jose Miguel Morin Diagnosis: Abdominal pain, Generalized;Nausea with vomiting, unspecified Presentation: 08/08 19:21 Chief complaint: Patient states: "I have having horrible abdominal pain that started as6 today. I think it's cause I had chicken today and didn't stick to my bland diet". Coronavirus screen: At this time, the client does not indicate any symptoms associated with coronavirus-19. Ebola Screen: No symptoms or risks identified at this time. Initial Sepsis Screen: Does the patient meet any 2 criteria? No. Patient's initial sepsis screen is negative. Does the patient have a suspected source of infection? No. Patient's initial sepsis screen is negative. Risk Assessment: Do you want to hurt yourself or someone else? Patient reports no desire to harm self or others. Onset of symptoms was August 08, 2022. 19:21 Method Of Arrival: Wheelchair as6 19:21 Acuity: JESSICA 3 as6 Triage Assessment: 19:26 General: Appears uncomfortable, Behavior is cooperative, crying, pt stops crying when as6 answering questions . Pain: Complains of pain in abdomen. GI: Reports lower abdominal pain, upper abdominal pain, nausea, vomiting. Historical: - Allergies: 19:23 ambien; as6 19:23 Codeine; as6 19:23 GUAIFENESIN; as6 19:23 Lisinopril; as6 19:23 Morphine; as6 19:23 Nitrofurantoin Macrocrystal; as6 19:23 PENICILLINS; as6 19:23 Prolixin; as6 19:23 zolpidem tartrate; as6 - PMHx: 19:23 "mental problems"; cardiac arrest; CHF; chronic kidney disease; cyclic vomiting as6 syndrome; Diabetes - NIDDM; Dialysis; m-w-f; ENCEPHALOPATHY; Gastroparesis; Hypertension; ibs; liver failure; PERIPHERAL NEUROPATHY; pseudo aneurysm R groin; Seizures; - PSHx: 19:23 section; dialysis catheter R chest wall; eye removed; as6 - Immunization history:: Client reports having NOT received the Covid vaccine. Flu vaccine is up to date. - Social history:: Smoking status: Patient reports the use of cigarette tobacco products, denies chronic smoking, but will smoke occasionally. Screenin:00 [facility] ED Fall Risk Assessment (Adult) History of falling in the last 3 months, vc1 including since admission No falls in past 3 months (0 pts) Confusion or Disorientation No (0 pts) Intoxicated or Sedated No (0 pts) Impaired Gait No (0 pts) Mobility Assist Device Used No (0 pt) Altered Elimination No (0 pt) Score/Fall Risk Level 0 - 2 = Low Risk Oriented to surroundings, Maintained a safe environment, Educated pt \\T\\ family on fall prevention, incl call for assistance when getting out of bed. Abuse screen: Denies threats or abuse. Nutritional screening: No deficits noted. Tuberculosis screening: No symptoms or risk factors identified. Assessment: 22:30 Reassessment: Pt in room yelling at daughter. "I told them that Fentanyl doesn't work vc1 on me I am in so much pain, I told the doctor that I needed dilaudid. It just hurts so bad." Daughter says to patient, "well you have been eating a lot more [employer] lately.". 22:48 Reassessment: Patient and/or family updated on plan of care and expected duration. Pain vc1 level reassessed. Patient is alert, oriented x 3, equal unlabored respirations, skin warm/dry/pink. Pt in room telling family, "I told them a fucking hour ago that I had a fucking headache and you think they could give me some Tylenol.". 08/09 00:04 Reassessment: No changes from previously documented assessment. Patient and/or family vc1 updated on plan of care and expected duration. Pain level reassessed. Pt states she barely produces urine and hasn't urinated all day. 02:00 Reassessment: No changes from previously documented assessment. Patient and/or family vc1 updated on plan of care and expected duration. Pain level reassessed. Patient denies pain at this time. Patient states feeling better. Patient states symptoms have improved. Vital Signs: 08/08 19:21 BP 224 / 111; Pulse 85; Resp 18 S; Temp 97.9(O); Pulse Ox 100% on R/A; Weight 75.2 kg as6 (M); Height 5 ft. 1 in. (154.94 cm) (R); Pain 10/10; 21:42 BP 213 / 101; Pulse 83; Pulse Ox 93% ; vc1 22:36 BP 196 / 102; vc1 22:48 BP 179 / 99; Pulse 84; vc1 08/09 00:05 BP 179 / 85; Pulse 78; Resp 18; Pulse Ox 100% on 2.5 lpm NC; vc1 00:40 BP 188 / 95; vc1 08/08 19:21 Body Mass Index 31.32 (75.20 kg, 154.94 cm) as6 ED Course: 08/08 19:16 Patient arrived in ED. am2 19:16 Jose Miguel Morin DO is Private Physician. am2 19:23 Triage completed. as6 19:24 Arm band placed on. as6 19:44 Janie Melo MD is Attending Physician. sd2 20:32 Lenora Cody RN is Primary Nurse. kr3 22:51 Patient has correct armband on for positive identification. Pulse ox on. NIBP on. vc1 Administered Medications: 20:34 Not Given (Physician Discretion): NS 0.9% 1000 ml IV at 1 bolus Per protocol; 1000 mL sd2 bolus 21:35 Drug: Zofran (Ondansetron) 4 mg Route: IVP; Site: Other; vc1 21:37 Drug: fentaNYL (PF) 75 mcg Route: IVP; Site: Other; vc1 21:41 Drug: NS 0.9% 500 ml {Note: Chest.} Route: IV; Rate: bolus; Site: Other; vc1 22:47 Drug: Labetalol 20 mg Route: IV; Rate: bolus; Infused Over: 2 mins; Site: Other; vc1 22:57 Drug: Tylenol 1000 mg Route: PO; vc1 08/09 00:35 Drug: Ketamine 0.2 mg/kg Route: IVP; Site: Other; vc1 02:03 Not Given (Other Intervention Used): Valium (diazepam) 2 mg IVP once vc1 Medication: 08/08 22:51 VIS not applicable for this client. vc1 Outcome: 08/09 01:37 Discharge ordered by . sd2 02:11 Patient left the ED. vc1 Signatures: Radha Moscoso am2 Yuri Mathis RN RN as6 Maria M Gonzalez RN RN 1 Janie Melo MD MD sd2 Lenora Cody RN RN kr3
[2022-08-09 02:17] VITALS: TEMP 97.9
[2022-08-09 02:21] VITALS: O2SAT 100
[2022-08-09 02:22] VITALS: BP 188/95
--- NOTE | 2022-08-10 12:39 | EKG ---
Test Date: 2022-08-08 Test Time: 20:57:05 Multimedia Educational Specialist: OLIVIA MEASUREMENT RESULTS: Intervals: Rate: 82 GA: 146 QRSD: 84 QT: 402 QTc: 469 [place]: P: 68 GA: 146 QRS: 52 T: 61 INTERPRETIVE STATEMENTS: Normal sinus rhythm Normal ECG Compared to ECG 07/23/2022 11:38:41 No significant changes Electronically Signed On 08-10-22 12:36:10 MERCHANDISER by Maximilian Mcnally
== END 2022-08-09 02:11 | disposition home or self-care (01) ==
LOC: ER 19:12
DX: R10.84 Generalized abdominal pain (principal); R11.2 Nausea with vomiting, unspecified; F17.210 Nicotine dependence, cigarettes, uncomplicated; E11.22 Type 2 diabetes mellitus with diabetic chronic kidney disease; I13.2 Hypertensive heart and chronic kidney disease with heart failure and with stage 5 chronic kidney disease, or end stage renal disease; N18.6 End stage renal disease; I50.9 Heart failure, unspecified; Z99.2 Dependence on renal dialysis
CPT/HCPCS: 93005; 85025; 36415; 84484; 83690; 80053; 96375; 96374; 99283; J3010; J7030; J2405

== ENCOUNTER 2022-08-26 20:10 | Emergency (ER) | payer MEDICARE, OTHER ==
--- OUTSIDE RECORDS SUMMARY | 2022-08-26 20:51 | XMS REPORT | Continuity of Care Document ---
:1980 Author Organization [facility] t Address [address] [place] [address] [place] [id number] Care Team Providers Name Role Phone SHARPLESS Primary Care Physician Unavailable Nodal_J Attending Clinician Unavailable Vladimir_Dinah Attending Clinician Unavailable RJA WEST Attending Clinician Unavailable Jose Miguel Morin DO Attending Clinician Rosy BURNS, Brooke Ricci Attending Clinician [phone] Seth GENAO, Bessie Parks Attending Clinician Forrest Cruz Attending Clinician Unavailable Melany Gilbert Attending Clinician Pat BURNS, Sivan Brand Attending Clinician Isra BURNS, Rachel Lew Attending Clinician [phone] Robe BURNS, Holden Elmore Attending Clinician Magaly BURNS, Shanda Higuera Attending Clinician Endy BURNS, Aurelio Attending Clinician Alesia Dodd Attending Clinician Joe BURNS, Mando Raphael Attending Clinician [phone] Jose Carlos BURNS, Veto Vincent Attending Clinician Pati BURNS, Juwan Attending Clinician Doc BURNS, Sofi Juárez Attending Clinician [phone] Robert MAYS, Gayle Attending Clinician Unavailable [...] Clinician Adam BURNS, Sukhjinder Argueta Attending Clinician Hanane Hernandes Attending Clinician MD JUWAN YOU Attending Clinician Unavailable Corin MAYS, Elodia Attending Clinician Unavailable Doctor Unassigned, Happy Attending Clinician Unavailable MONA BHAT Attending Clinician Unavailable Missy Garcia RN Attending Clinician Unavailable Jimena Easton DO Attending Clinician Arun BURNS, Eze Vail Attending Clinician Obed Gray MD Attending Clinician Monihsa Bajwa Attending Clinician MONISHA BAJWA Attending Clinician Unavailable Alexandr Diane MD Attending Clinician OZ KIMBLE Attending Clinician Unavailable Hui Wright Attending Clinician HUI WRIGHT Attending Clinician Unavailable JOSE LUIS GONZALEZ Attending Clinician Unavailable Oz Kimble MD Attending Clinician Jose Luis Gonzalez MD Attending Clinician Earl Sanchez DO Attending Clinician DEJA CLEANING Attending Clinician Unavailable Deja Cleaning DPM Attending Clinician [phone] Pc, Adc Echo Room 1 - Attending [...] Clinician ZEKE RUVALCABA Attending Clinician Unavailable Adán Hron MD Attending Clinician Aimee Frederick Attending Clinician [...] Arun Espitia MD, Victor J Admitting Clinician [phone] Hui Wright Admitting Clinician HUI WRIGHT Admitting Clinician Unavailable Rei Waldron Admitting Clinician Unavailable MOISE BHAKTA Admitting Clinician Unavailable Danae Cha Admitting Clinician Joe Juárez Admitting Clinician Payers Payer Name Policy Type Policy Number Effective Date Expiration Date S karla MEDICARE PART A AND [id number] 2014 2021 B 00:00:00 00:00:[id number] 2020 00:00:00 MEDICARE PART A \\T\\ [id number] 2014 B 00:00:00 [place] [id number] 2020 00:00:00 [employer] [facility] [id number] 2021 (MEDICARE 00:00:00 REPLACEMENT HMO) MEDICARE A B [id number] 2014 00:00:00 [place] [id number] 2016 00:00:00 Problems Condition Condition Condition Status Onset Resolution Last Treating Co mments Source Name Details Category Date Date Treatment Clinician Date AVF AVF Disease Active Univers (arteriove (arteriove 03-19 it y of nous nous 00:00: [place] fistula) fistula) 00 Medica l Branch End stage End stage Disease Active [facility] renal renal 01-03 Health failure on failure on 00:00: dialysis dialysis 00 Diabetes Diabetes Disease Active [facility] mellitus mellitus 7-16 Health with with 00:00: gastropare gastropare 00 sis sis Essential Essential Disease Active [facility] hypertensi hypertensi 01-03 He alth on on 00:00: 00 Irritable Irritable Disease Active [facility] bowel bowel 01-03 Health syndrome syndrome 00:00: (IBS) (IBS) 00 GASTROPARE GASTROPAR Diagnosis Active 2021-02-10 Memoria HELENA/IBS-D ESISI/IBS- 01-03 21:41:00 l /ANEMIA D/ANEMIA 00:00: [place] Active 00 01/03/2021 [facility] NEW NEW Diagnosis Active 2020-12-24 Mem oria PATIENT GI PATIENT GI 10-14 10:39:00 l CONSULT CONSULT 00:00: Vin REFRACTORY REFRACTORY 00 GASTRO GASTRO Active 10/14/2020 [facility] Malfunctio Malfunctio Disease Active Overview : Univers n of n of 6-03 Formattin ity of arterioven arterioven 00:00: g of this [place] ous ous 00 note Medical dialysis dialysis might be Bran ch fistula, fistula, different initial initial from the encounter encounter original. Added automatic ally from request for surgery [id number] Candidiasi Candidiasi Disease Active U nivers s of vulva s of vulva 2-18 it y of and vagina [place] [facility] Branch Screening Screening Disease Active Uni vers for breast for breast 2-18 it y of cancer cancer 00:00: [place] 00 Medical Branch NEW NEW Diagnosis Active 2018-07-26 [facility] oria EVALUATION EVALUATION 07-12 09:39:00 l Active 00:00: Vin 07/12/2018 00 [facility] Pyogenic Pyogenic Disease Active 2017-06 Overview: Un lori granuloma granuloma 0-17 Formattin i ty of of of 00:00: g of this [place] conjunctiv conjunctiv 00 note Me dical a, right a, right might be Bran ch different from the original. Added automatic ally from request for surgery [id number] Right eye Right eye Disease Active Overview: Univers affected affected 9-04 Formattin ity of by by 00:00: g of this [place] proliferat proliferat 00 note Me dical montse montse might be Branch diabetic diabetic different retinopath retinopath from the y with y with original. 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 Eviscerat ion OS on 8 - Dr. 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 Added automatic ally from request for surgery [id number] ESRD (end ESRD (end Disease Active Overview: Univers stage stage 6-12 Formattin ity of renal renal 00:00: g of this [place] disease) disease) 00 note Medica l on on might be Branch dialysis dialysis different from the original. Added automatic ally from request for surgery [id number] Diabetes Diabetes Disease Active Metho di mellitus [...] Added automatic ally from request for surgery [id number] Neovascula Neovascula Disease Active U nivers r [...] Formattin ity of 00:00: g of this [place] 00 note Medical might be Branch different from the original. Added automatic ally from request for surgery [id number] Pseudotumo Pseudotumo Disease Active U nivers r cerebri r cerebri 9-25 ity of 00:00: [place] [address] Medical Branch Liver Liver Disease Active [facility] [...] neuropathy 7-16 Pati kes 00:00: Medical 00 [place] Hyperglyce Hyperglyce Disease Active [facility] 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 7-16 Pati kes type 2 type 2 00:00: Medical diabetes diabetes 00 Center mellitus mellitus Gastropare Gastropare Disease Active [facility] sis due to sis due to 7-16 Pati kes DM DM 00:00: Medical 00 [place] Cyclic Cyclic Disease Active [facility] vomiting vomiting 7-16 [facility] syndrome syndrome 00:00: Medica l 00 Center Anxiety Anxiety Disease [facility] Bipolar Bipolar Disease Active [facility] disorder disorder 7-16 [facility] 00:[facility]: Medical 00 [place] Hypertensi Hypertensi Disease Active [facility] ve ve 7-16 [facility] emergency emergency 00:00: Medi tawnya 00 [place] ACUTE RESP ACUTE Diagnosis Active 2016-09-09 Memoria FAILURE RESP 2- 09:11:00 l FAILURE 00:00: Vin Active 00 07/23/2016 [facility] CONGESTION CONGESTIO Diagnosis Active 2016-07-24 Memoria AMD N AMD 2 01:49:00 l DIARRHEA DIARRHEA 00:00: Jake gonzalez Active 00 07/23/2016 [facility] Congestive Congestive Disease Active 2015-06 U T heart heart 08-11 Health failure failure 00:00: (CHF) (CHF) 00 SOB/SWELLI SOB/SWELL Diagnosis Active 2015-062016-06-10 Memoria NG ING Active 08-11 15:48:00 l 00:00: Jake gonzalez [address] CHF/RENAL CHF/RENAL Diagnosis Active 2015-062016-06-24 Memoria DISEASE DISEASE 08-11 15:35:00 l Active 00:00: Vin 06/10/2016 00 [facility] Obesity Obesity Disease Active 2015-06 Univers (BMI (BMI 0-12 ity of 30-39.9) 30-39.9) 00:00: [place] [address] Medical Branch Hyperosmol Hyperosmol Disease Active 2015-06 U nivers ar ar 0-12 ity of non-ketoti non-ketoti 00:00: [place] c state in c state in 00 Me dical patient patient Branch with 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 Hyperglyce Hyperglyce Disease Active 2015-06 U nivers maryam maryam 0-11 ity of 00:00: [place] [address] Medical Branch Diabetic Diabetic Disease Active Unive rs ulcer of ulcer of 5-07 ity of both feet [place] associated associated 00 Me dical with type with type Bran ch 2 diabetes 2 diabetes mellitus mellitus SANJUANA (acute SANJUANA (acute Disease Active U nivers kidney kidney 5-07 ity of injury) injury) 00:00: [place] [address] Medical Branch Depression Depression Disease Active U nivers 5-07 ity of 00:00: [place] [address] Medical Branch Bipolar 1 Bipolar 1 Disease Active Uni vers disorder disorder 5-07 ity of 00:: [place] [address] Medical Branch Suicidal Suicidal Disease Active Unive rs ideation ideation 5-05 ity of 00:00: [place] [address] Medical Branch 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, 1.5, 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 00 Medical Branch Hematuria, Hematuria, Disease Active 2016-0 U nivers undiagnose undiagnose 2-16 it y [...] 00:00: [place] cancer in cancer in 00 [facility] tawnya female female Branch Family Family [...] Branch ABDOMINAL Diagnosis Active 2014-06-26 Memoria PAIN, ABDOMINAL 06-26 05:44:00 l SEIZURES PAIN, 00:00: Vin SEIZURES 00 Active 06/26/2013 [facility] ABD PAIN ABD PAIN Diagnosis Active 2012-062013-04-19 Memoria Active 0 21:51:00 l 04/14/2013 19:00: Jake gonzalez 00 [facility] GASTROPERI GASTROPER Diagnosis Active 2012-09-13 Memoria SIS DAISY 2-12 15:17:00 l Active 00:00: Vin 08/02/2012 00 [facility] ABDOMINAL ABDOMINAL Diagnosis Active 2012-03-14 Memoria PAIN PAIN 03-14 16:56:00 l Active 14:00: Vin 03/14/2012 00 [facility] NAUSEA, NAUSEA, Diagnosis Active 2012-03-14 Memoria VOMITING VOMITING 03-14 13:25:00 l Active 08:00: Vin 03/14/2012 00 [facility] N/V N/V Diagnosis Active 2011-12-08 Mem oria INABILITY INABILITY 11-27 11:14:00 l TO TO 00:00: Vin TOLERATE TOLERATE 00 PO PO Active 11/28/2011 [facility] VOMITTING VOMITTING Diagnosis Active 2011-11-28 Memoria Active 11-27 16:28:00 l 11/28/2011 00:00: Jake n [address] VOMITTING, Diagnosis Active 2011-09-18 Memoria HIGH BLOOD VOMITTING, 09-17 09:45:00 l SUGAR HIGH BLOOD 00:00: Jake n SUGAR 00 Active 09/18/2011 [facility] Methicilli Problem Active 2021-01-31 M emoria n Methicilli 08-31 22:29:25 l resistant n 00:00: Vin 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 [facility] MRSA MRSA Problem Active 2012-03-16 Memor ia Active 08-31 09:11:30 l 09/01/2011 00:00: Jake n Problem 00 03/16/2012 - Elbow [id number] emily added by Discern Expert. [facility] VOMITING, VOMITING, Diagnosis Active 2011-09-01 [facility] BLOOD BLOOD 08-30 03:19:00 l SUGAR SUGAR 00:00: [place] READINGS READINGS 00 HIGH HIGH Active 08/31/2011 [facility] ELBOW ELBOW Diagnosis Active 2011-09-10 Mem oria ABSCESS/HY ABSCESS/HY 08-30 16:26:00 l PERGLYCEMI PERGLYCEMI 00:00: Tyrel rmann A A Active 00 08/31/2011 [facility] Hypokalemi Hypokalem Problem Active 2012-03-16 Memoria a ia Active 08-22 09:11:30 l 08/23/2011 00:00: Jake n Problem 00 03/16/2012 [facility] DKA DKA Diagnosis Active 2011-08-24 Mem oria Active 11:27:00 l 08/19/2011 00:00: Jake gonzalez [address] VOMITING VOMITING Diagnosis Active 2011-08-19 Memoria Active 16:21:00 l 08/19/2011 00:00: Jake gonzalez [address] Final: Final: Problem 2016-08-02 Mendoza janice Acute Acute 02:46:22 l respirator respirator He rmann y failure, y failure, unspecifie unspecifie d whether d whether with with hypoxia or hypoxia or hypercapni hypercapni a a 08/02/2016 [facility] Hypoglycem Hypoglyce Problem Inactiv 2012-03-16 Memoria ia maryam e 09:11:30 l Inactive [place] Problem 03/16/2012 [facility] Hypoglycem Hypoglyce Problem Inactiv 2013-04-22 Memoria ia maryam e 04:46:33 l (disorder) (disorder) He rmann Inactive Problem 04/22/2013 [facility] Gastropare Gastropar Problem Resolve 2021-01-31 Memoria sis esis d 22:29:25 l (disorder) (disorder) He rmann Resolved Problem 01/31/2021 [facility] Hypertensi Hypertens Problem Resolve 2021-01-31 Memoria ve montse d 22:29:25 l disorder, disorder, Herm naeem systemic systemic arterial arterial (disorder) (disorder) Resolved Problem 01/31/2021 [facility] Psychiatri Psychiatr Problem Resolve 2021-01-31 Memoria c ic d 22:29:25 l behavioral behavioral He rmann disability disability (finding) (finding) Resolved Problem 01/31/2021 [facility] Seizure Seizure Problem Resolve 2021-01-31 M emoria (finding) (finding) d 22:29:25 l Resolved Vin Problem 01/31/2021 [facility] Hypertensi Hypertens Problem Active 2012-03-16 Memoria on ion Active 09:11:30 l Problem [place] 03/16/2012 [facility] Hypomagnes Problem Active 2013-04-22 M emoria emia Hypomagnes 04:46:33 l emia Vin Active Problem 04/22/2013 [facility] Nausea and Nausea Problem Active 2012-03-16 Memoria vomiting and 09:11:30 l vomiting [place] Active Problem 03/16/2012 [facility] ENCNTR FOR ENCNTR Diagnosis Active 2020-12-24 Memoria GENERAL FOR 10:39:00 l ADULT GENERAL [place] MEDICAL ADULT EXAM W/ MEDICAL EXAM W/ Active [facility] DMI DMI Diagnosis Active 2011-08-24 Mem oria KETOACD KETOACD 11:27:00 l UNCONTROLD UNCONTROLD He rmann Active [facility] OTHER OTHER Diagnosis Active 2011-09-10 Mem oria GENERAL GENERAL 16:26:00 l SYMPTOMS SYMPTOMS Jake n Active [facility] HEART HEART Diagnosis Active 2016-06-24 Mem oria FAILURE, FAILURE, 15:35:00 l UNSPECIFIE UNSPECIFIE He rmann D D Active [facility] ACUTE ACUTE Diagnosis Active 2016-09-09 Mem oria RESPIRATOR RESPIRATOR 09:11:00 l Y FAILURE, Y FAILURE, He ally UNSP W UNSP W HYPOXI HYPOXI Active [facility] Nausea and Nausea Problem Resolve 2021-01-31 2021-01-31 Memoria vomiting and d 6-10 22:29:25 22:29:25 l (disorder) vomiting 00:00: Herm naeem (disorder) 00 Resolved 11/29/2011 Problem 01/31/2021 [facility] Hypokalemi Hypokalem Problem Resolve 2021-01-31 2021-01-31 Memoria a ia d 08-22 22:29:25 22:29:25 l (disorder) (disorder) 00:00: He rmann Resolved 00 08/23/2011 Problem 01/31/2021 [facility] Disorder Disorder Problem Resolve 2021-01-31 2021-01-31 Memoria of of d 3 22:29:25 22:29:25 l magnesium magnesium 00:00: Herm naeem metabolism metabolism 00 (disorder) (disorder) Resolved 08/23/2011 Problem 01/31/2021 [facility] Hyperglyce Hyperglyc Problem Resolve 2021-01-31 2021-01-31 Memoria maryam emia d 08-19 22:29:25 22:29:25 l (disorder) (disorder) 00:00: He rmann Resolved 00 08/20/2011 Problem 01/31/2021 [facility] Ketoacidos Ketoacido Problem Resolve 2021-01-31 2021-01-31 Memoria is in sis in d 22:29:25 22:29:25 l diabetes diabetes 00:00: Jake gonzalez mellitus mellitus 00 (disorder) (disorder) Resolved 08/19/2011 Problem 01/31/2021 [facility] DKA DKA Problem Resolve 2013-04-22 2013-04-22 Memoria (diabetic (diabetic d 04:46:33 04:46:33 l ketoacidos ketoacidos 00:00: Tyrel thompson) es) 00 Resolved 08/19/2011 Problem 04/22/2013 [facility] History of Past Illness Condition Condition Condition Status Onset Resolution Last Treating Co mments Source Name Details Category Date Date Treatment Clinician Date Discharge Discharge Problem 2014-06-28 2014-06-28 Memoria Diagnosis: Diagnosis: 06-26 16:34:37 16:34:37 l Gastropare Gastropare 06:00: Tyrel canales sis sis 00 06/26/2014 06/28/2014 [facility] Hyperglyce Hyperglyc Problem Inactiv 2012-03-16 2012-03-16 Memoria maryam emia e 3- 09:11:30 09:11:30 l Inactive 00:00: Vin 08/20/2011 00 Problem 03/16/2012 [facility] Allergies, Adverse Reactions, Alerts Allergy [...] of 00:00: [place] 00 Medical Branch Adhesive Propensi [...] Of [facility] Guaifene Drug Active Other (See numbness [facility] Allergy Comments) [facility] NITROFUR [...] Breath 01-03 [facility] Nitrofur [...] s): e 00 HivesAirw ay closure penicill Drug Active [facility] lisinopr Drug Active [facility] Ambien Drug Active [facility] Prolixin Drug Active [facility] penicill Drug Active [facility] lisinopr Drug Active [facility] Ambien Drug Active [facility] Prolixin Drug Active [facility] Tape Other Active [facility] penicill Drug Active [facility] lisinopr Drug Active [facility] Ambien Drug Active [facility] Prolixin Drug Active [facility] codeine Drug Active [facility] penicill Drug Active [facility] lisinopr Drug Active [facility] Ambien Drug Active [facility] Prolixin Drug Active [facility] codeine Drug Active [facility] penicill Drug Active [facility] lisinopr Drug Active [facility] Ambien Drug Active [facility] Prolixin Drug Active [facility] penicill Drug Active [facility] lisinopr Drug Active [facility] Ambien Drug Active [facility] Prolixin Drug Active [facility] penicill Drug Active [facility] lisinopr Drug Active [facility] Ambien Drug Active [facility] Prolixin Drug Active [facility] penicill penicill Active Memori a ins ins l [place] codeine codeine Active Memoria l [place] morphine morphine Active Memori a l Vin lisinopr lisinopr Active Memori a il il l Vin Adhesive Adhesive Active Memori a Tape Tape iván Banuelos Ambien Ambien Active Memoria l Vin Prolex Prolex Active Memoria DM DM l Vin Social History Social Habit Start Date Stop Date Quantity Comments Source History of tobacco Cigarette Smoker Muslim use Hospital Exposure to Yes Muslim SARS-CoV-2 (event) Hospit al Alcohol intake 2021-06-18 2021-06-18 Ex-drinker Muslim 00:00:00 00:00:00 (finding) Hospital Tobacco use and 2021-05-14 2021-05-14 Smokeless tobacco Me thodist exposure 00:00:00 00:00:00 non-user Hospital Cigarettes smoked 2021-05-14 2021-05-14 [facility] current (pack per 00:00:00 00:00:00 Hospita l day) - Reported Cigarette 2021-05-14 2021-05-14 Muslim pack-years 00:00:00 00:00:00 Hospital Social History 2020-12-24 2020-12-24 [facility] fatou 15:49:37 15:49:37 Tobacco Comment 2017-11-12 2017-11-12 5 cigarettes per Met hodist 00:00:00 00:00:00 day Hospital Sex Ass[birth year] At [birth year] Muslim 00:00:00 00:00:00 Hospital Smoking Status Start Date Stop Date Source Smokes tobacco daily 2021-05-14 00:00:00 [facility] Former smoker 2020-06-27 00:00:00 2020-06-27 00:00:00 [facility] Medications Ordered Filled Start Stop Current Ordering Indication Dosage Frequency Signature Comments Components Source Medication Medication Date Date Medication? Clinician (SIG) Name Name calcium Yes 1334mg Q.[id number] Take 1,334 Methodi acetate,domingo 1-18 [id number] mg by s t sphat bind, 13:02: 3D mouth 3 Hos whit (Phoslyra) 39 (three) l 667 mg (169 times a mg day. calcium)/5 mL solution cyproheptad Yes 4mg Q.[id number] Take 4 mg Methodi ine 1-18 [id number] mouth [address] (PERIACTIN) 13:02: 3D (three) Hos whit 4 mg tablet 39 times a l day as needed for allergies. buPROPion 2021-0 Yes 300mg QD Take 300 Met hodi XL 1-[address] (WELLBUTRIN 13:02: mouth Hospi ta XL) 300 MG 39 daily. l 24 hr tablet ascorbic 2022-0 Yes 500mg Q.[id number] Take 500 Methodi acid, 1-[id number] vitamin C, 13:02: 3D [...] jo-ann 39 l calcium 2021-0 Yes 667mg Q.[id number] Take 667 Methodi acetate 1-[id number] (PHOSLO) 13:02: 3D mouth [...] 39 nightly. l calcium 2021-0 Yes 1334mg Q.[id number] Take 1,334 Methodi acetate,domingo 1-18 [id number] mg by s t sphat bind, 13:02: 3D mouth 3 Hos whit (Phoslyra) 39 (three) l 667 mg (169 times a mg day. calcium)/5 mL solution cyproheptad 2021-0 Yes 4mg Q.[id number] Take 4 mg Methodi ine 1-18 [id number] mouth [address] (PERIACTIN) 13:02: 3D (three) Hos whit 4 mg tablet 39 times a l day as needed for allergies. buPROPion 2021-0 Yes 300mg QD Take 300 Met hodi XL 1-[address] (WELLBUTRIN 13:02: mouth Hospi ta XL) 300 MG 39 daily. l 24 hr tablet ascorbic 2021-0 Yes 500mg Q.[id number] Take 500 Methodi acid, 1-[id number] vitamin C, 13:02: 3D [...] jo-ann 39 l calcium 2021-0 Yes 667mg Q.[id number] Take 667 Methodi acetate 1-[id number] (PHOSLO) 13:02: 3D mouth [...] daily. l D3) 5,000 unit tablet metoprolol Yes 50mg QD Take 50 mg M [...] 40mg QD Take 40 mg Methodi (PRAVACHOL) -[address] 40 MG 13:02: daily. [...] 39 nightly. l calcium 0 Yes 1334mg Q.[id number] Take 1,334 Methodi acetate,domingo 1-18 [id number] mg by s t sphat bind, 13:02: 3D mouth 3 Hos whit (Phoslyra) 39 (three) l 667 mg (169 times a mg day. calcium)/5 mL solution cyproheptad Yes 4mg Q.[id number] Take 4 mg Methodi ine 1-18 [id number] mouth [address] (PERIACTIN) 13:02: 3D (three) Hos whit 4 mg tablet 39 times a l day as needed for allergies. buPROPion 0 Yes 300mg QD Take 300 Met hodi XL 1-[address] (WELLBUTRIN 13:02: mouth Hospi ta XL) 300 MG 39 daily. l 24 hr tablet ascorbic 2021-0 Yes 500mg Q.[id number] Take 500 Methodi acid, 1-[id number] vitamin C, 13:02: 3D [...] jo-ann 39 l calcium 2021-0 Yes 667mg Q.[id number] Take 667 Methodi acetate 1-[id number] (PHOSLO) 13:02: 3D mouth [...] 39 nightly. l calcium 2021-0 Yes 1334mg Q.[id number] Take 1,334 Methodi acetate,domingo 1-18 [id number] mg by s t sphat bind, 13:02: 3D mouth 3 Hos whit (Phoslyra) 39 (three) l 667 mg (169 times a mg day. calcium)/5 mL solution cyproheptad 2021-0 Yes 4mg Q.[id number] Take 4 mg Methodi ine 1-18 [id number] mouth [address] (PERIACTIN) 13:02: 3D (three) Hos whit 4 mg tablet 39 times a l day as needed for allergies. buPROPion 2021-0 Yes 300mg QD Take 300 Met hodi XL 1-[address] (WELLBUTRIN 13:02: mouth Hospi ta XL) 300 MG 39 daily. l 24 hr tablet ascorbic 2021-0 Yes 500mg Q.[id number] Take 500 Methodi acid, 1-[id number] vitamin C, 13:02: 3D [...] jo-ann 39 l calcium 2022-0 Yes 667mg Q.[id number] Take 667 Methodi acetate 1-[id number] (PHOSLO) 13:02: 3D mouth [...] 39 nightly. l calcium 2021-0 Yes 1334mg Q.[id number] Take 1,334 Methodi acetate,domingo 1-18 [id number] mg by s t sphat bind, 13:02: 3D mouth 3 Hos whit (Phoslyra) 39 (three) l 667 mg (169 times a mg day. calcium)/5 mL solution cyproheptad 2021-0 Yes 4mg Q.86367206 Take 4 mg Methodi ine 1-18 [id number] by mouth [address] (PERIACTIN) 13:02: 3D (three) Hos whit 4 mg tablet 39 times a l day as needed for allergies. buPROPion 2021-0 Yes 300mg QD Take 300 Met hodi XL 1-[address] (WELLBUTRIN 13:02: mouth Hospi ta XL) 300 MG 39 daily. l 24 hr tablet ascorbic 2021-0 Yes 500mg Q.31662731 Take 500 [facility] acid, 1-[id number] vitamin C, 13:02: 3D [...] jo-ann 39 l calcium 2-0 Yes 667mg Q.99416562 Take 667 [facility] acetate 1-[id number] (PHOSLO) 13:02: 3D mouth [...] 39 nightly. l calcium 2021-0 Yes 1334mg Q.29294372 Take 1,334 Methodi acetate,domingo 1-18 [id number] mg by s t sphat bind, 13:02: 3D mouth 3 Hos whit (Phoslyra) 39 (three) l 667 mg (169 times a mg day. calcium)/5 mL solution cyproheptad 2021-0 Yes 4mg Q.33355855 Take 4 mg [facility] ine 1-18 [id number] by mouth [address] (PERIACTIN) 13:02: 3D (three) Hos whit 4 mg tablet 39 times a l day as needed for allergies. buPROPion 2021-0 Yes 300mg QD Take 300 Met hodi XL 1-[address] (WELLBUTRIN 13:02: mouth Hospi ta XL) 300 MG 39 daily. l 24 hr tablet ascorbic 2021-0 Yes 500mg Q.87987261 Take 500 [facility] acid, 1-[id number] vitamin C, 13:02: 3D [...] jo-ann 39 l calcium 2021-0 Yes 667mg Q.94844409 Take 667 [facility] acetate 1-[id number] (PHOSLO) 13:02: 3D mouth [...] 39 nightly. l calcium 2-0 Yes 1334mg Q.38438167 Take 1,334 Methodi acetate,domingo 1-18 [id number] mg by s t sphat bind, 13:02: 3D mouth 3 Hos whit (Phoslyra) 39 (three) l 667 mg (169 times a mg day. calcium)/5 mL solution cyproheptad 2021-0 Yes 4mg Q.10909464 Take 4 mg [facility] ine 1-18 [id number] by mouth [address] (PERIACTIN) 13:02: 3D (three) Hos whit 4 mg tablet 39 times a l day as needed for allergies. buPROPion 2021-0 Yes 300mg QD Take 300 Met hodi XL 1-[address] (WELLBUTRIN 13:02: mouth Hospi ta XL) 300 MG 39 daily. l 24 hr tablet ascorbic 2021-0 Yes 500mg Q.21513272 Take 500 [facility] acid, 1-[id number] vitamin C, 13:02: 3D [...] jo-ann 39 l calcium 2021-0 Yes 667mg Q.69362242 Take 667 [facility] acetate 1-[id number] (PHOSLO) 13:02: 3D mouth [...] 39 nightly. l calcium 2021-0 Yes 1334mg Q.82906432 Take 1,334 Methodi acetate,domingo 1-18 [id number] mg by s t sphat bind, 13:02: 3D mouth 3 Hos whit (Phoslyra) 39 (three) l 667 mg (169 times a mg day. calcium)/5 mL solution cyproheptad 2021-0 Yes 4mg Q.30571481 Take 4 mg [facility] ine 1-18 [id number] [address] mouth [address] (PERIACTIN) 13:02: 3D (three) Hos whit 4 mg tablet 39 times a l day as needed for allergies. buPROPion 2022-0 Yes 300mg QD Take 300 Met hodi XL 1-[address] (WELLBUTRIN 13:02: mouth Hospi ta XL) 300 MG 39 daily. l 24 hr tablet ascorbic 2022-0 Yes 500mg Q.13213491 Take 500 [facility] acid, 1-[id number] vitamin C, 13:02: 3D [...] jo-ann 39 l calcium 2-0 Yes 667mg Q.03759781 Take 667 [facility] acetate 1-[id number] (PHOSLO) 13:02: 3D mouth [...] 39 nightly. l calcium 2021-0 Yes 1334mg Q.34539758 Take 1,334 Methodi acetate,domingo 1-18 [id number] mg by s t sphat bind, 13:02: 3D mouth 3 Hos whit (Phoslyra) 39 (three) l 667 mg (169 times a mg day. calcium)/5 mL solution cyproheptad 2021-0 Yes 4mg Q.68604061 Take 4 mg [facility] ine 1-18 [id number] [address] mouth [address] (PERIACTIN) 13:02: 3D (three) Hos whit 4 mg tablet 39 times a l day as needed for allergies. buPROPion 2021-0 Yes 300mg QD Take 300 Met hodi XL 1-[address] (WELLBUTRIN 13:02: mouth Hospi ta XL) 300 MG 39 daily. l 24 hr tablet ascorbic 2021-0 Yes 500mg Q.32328324 Take 500 [facility] acid, 1-[id number] vitamin C, 13:02: 3D [...] jo-ann 39 l calcium 2021-0 Yes 667mg Q.52387648 Take 667 [facility] acetate 1-[id number] (PHOSLO) 13:02: 3D mouth [...] 39 nightly. l calcium 2021-0 Yes 1334mg Q.17377249 Take 1,334 Methodi acetate,domingo 1-18 [id number] mg by s t sphat bind, 13:02: 3D mouth 3 Hos whit (Phoslyra) 39 (three) l 667 mg (169 times a mg day. calcium)/5 mL solution cyproheptad 2021-0 Yes 4mg Q.90374110 Take 4 mg [facility] ine 1-18 [id number] [address] mouth [address] (PERIACTIN) 13:02: 3D (three) Hos whit 4 mg tablet 39 times a l day as needed for allergies. buPROPion 2021-0 Yes 300mg QD Take 300 Met hodi XL 1-[address] (WELLBUTRIN 13:02: mouth Hospi ta XL) 300 MG 39 daily. l 24 hr tablet ascorbic 2021-0 Yes 500mg Q.93743070 Take 500 [facility] acid, 1-[id number] vitamin C, 13:02: 3D [...] jo-ann 39 l calcium 202-0 Yes 667mg Q.[id number] Take 667 [facility] acetate 1-[id number] (PHOSLO) 13:02: 3D mouth [...] 39 nightly. l calcium 2021-0 Yes 1334mg Q.[id number] Take 1,334 Methodi acetate,domingo 1-18 [id number] mg by s t sphat bind, 13:02: 3D mouth 3 Hos whit (Phoslyra) 39 (three) l 667 mg (169 times a mg day. calcium)/5 mL solution cyproheptad 2021-0 Yes 4mg Q.98321170 Take 4 mg [facility] ine 1-18 [id number] [address] mouth [address] (PERIACTIN) 13:02: 3D (three) Hos whit 4 mg tablet 39 times a l day as needed for allergies. buPROPion 2021-0 Yes 300mg QD Take 300 Met hodi XL 1-[address] (WELLBUTRIN 13:02: mouth Hospi ta XL) 300 MG 39 daily. l 24 hr tablet ascorbic 2021-0 Yes 500mg Q.47831062 Take 500 [facility] acid, 1-[id number] vitamin C, 13:02: 3D [...] jo-ann 39 l calcium 2-0 Yes 667mg Q.51028195 Take 667 [facility] acetate 1-[id number] (PHOSLO) 13:02: 3D mouth [...] 39 nightly. l calcium 2021-0 Yes 1334mg Q.38448544 Take 1,334 Methodi acetate,domingo 1-18 [id number] mg by s t sphat bind, 13:02: 3D mouth 3 Hos whit (Phoslyra) 39 (three) l 667 mg (169 times a mg day. calcium)/5 mL solution cyproheptad 2021-0 Yes 4mg Q.[id number] Take 4 mg [facility] ine 1-18 [id number] [address] mouth [address] (PERIACTIN) 13:02: 3D (three) Hos whit 4 mg tablet 39 times a l day as needed for allergies. buPROPion 2021-0 Yes 300mg QD Take 300 Met hodi XL 1-[address] (WELLBUTRIN 13:02: mouth Hospi ta XL) 300 MG 39 daily. l 24 hr tablet ascorbic 2021-0 Yes 500mg Q.[id number] Take 500 [facility] acid, 1-[id number] vitamin C, 13:02: 3D [...] jo-ann 39 l calcium 2021-0 Yes 667mg Q.86762068 Take 667 [facility] acetate 1-[id number] mg by [address] (PHOSLO) 13:02: 3D mouth [...] 39 nightly. l calcium 2021-0 Yes 1334mg Q.68274197 Take 1,334 Methodi acetate,domingo 1-18 [id number] mg by s t sphat bind, 13:02: 3D mouth 3 Hos whit (Phoslyra) 39 (three) l 667 mg (169 times a mg day. calcium)/5 mL solution cyproheptad 2021-0 Yes 4mg Q.65565572 Take 4 mg [facility] ine 1-18 [id number] [address] mouth [address] (PERIACTIN) 13:02: 3D (three) Hos whit 4 mg tablet 39 times a l day as needed for allergies. buPROPion 2021-0 Yes 300mg QD Take 300 Met hodi XL 1-[address] (WELLBUTRIN 13:02: mouth Hospi ta XL) 300 MG 39 daily. l 24 hr tablet ascorbic 2021-0 Yes 500mg Q.73155732 Take 500 [facility] acid, 1-[id number] vitamin C, 13:02: 3D [...] jo-ann 39 l calcium 2021-0 Yes 667mg Q.87241748 Take 667 [facility] acetate 1-[id number] (PHOSLO) 13:02: 3D mouth [...] 39 nightly. l calcium 2022-0 Yes 1334mg Q.67529875 Take 1,334 Methodi acetate,domingo 1-18 [id number] mg by s t sphat bind, 13:02: 3D mouth 3 Hos whit (Phoslyra) 39 (three) l 667 mg (169 times a mg day. calcium)/5 mL solution cyproheptad 2021-0 Yes 4mg Q.84016835 Take 4 mg [facility] ine 1-18 [id number] [address] mouth [address] (PERIACTIN) 13:02: 3D (three) Hos whit 4 mg tablet 39 times a l day as needed for allergies. buPROPion 2021-0 Yes 300mg QD Take 300 Met hodi XL 1-[address] (WELLBUTRIN 13:02: mouth Hospi ta XL) 300 MG 39 daily. l 24 hr tablet ascorbic 2021-0 Yes 500mg Q.74850435 Take 500 [facility] acid, 1-[id number] vitamin C, 13:02: 3D [...] jo-ann 39 l calcium 2021-0 Yes 667mg Q.[id number] Take 667 [facility] acetate 1-[id number] (PHOSLO) 13:02: 3D mouth [...] 39 nightly. l calcium 0 Yes 1334mg Q.[id number] Take 1,334 Methodi acetate,domingo 1-18 [id number] mg by s t sphat bind, 13:02: 3D mouth 3 Hos whit (Phoslyra) 39 (three) l 667 mg (169 times a mg day. calcium)/5 mL solution cyproheptad 0 Yes 4mg Q.[id number] Take 4 mg Method[facility] ine 1-18 [id number] [address] mouth [address] (PERIACTIN) 13:02: 3D (three) Hos whit 4 mg tablet 39 times a l day as needed for allergies. buPROPion 2021-0 Yes 300mg QD Take 300 Met hodi XL 1-[address] (WELLBUTRIN 13:02: mouth Hospi ta XL) 300 MG 39 daily. l 24 hr tablet ascorbic 2021-0 Yes 500mg Q.45215190 Take 500 [facility] acid, 1-[id number] vitamin C, 13:02: 3D [...] jo-ann 39 l calcium 202-0 Yes 667mg Q.[id number] Take 667 [facility] acetate 1-[id number] (PHOSLO) 13:02: 3D mouth [...] jo-ann 39 l calcium 2021-0 Yes 667mg Q.24565143 Take 667 [facility] acetate 1-[id number] (PHOSLO) 13:02: 3D mouth [...] 39 nightly. l calcium 2021-0 Yes 1334mg Q.[id number] Take 1,334 Methodi acetate,domingo 1-18 [id number] mg by s t sphat bind, 13:02: 3D mouth 3 Hos whit (Phoslyra) 39 (three) l 667 mg (169 times a mg day. calcium)/5 mL solution cyproheptad 2022-0 Yes 4mg Q.45779892 Take 4 mg [facility] ine 1-18 [id number] [address] mouth [address] (PERIACTIN) 13:02: 3D (three) Hos whit 4 mg tablet 39 times a l day as needed for allergies. buPROPion Yes 300mg QD Take 300 Met hodi XL 1-[address] (WELLBUTRIN 13:02: mouth Hospi ta XL) 300 MG 39 daily. l 24 hr tablet ascorbic Yes 500mg Q.73654623 Take 500 [facility] acid, 1-[id number] vitamin C, 13:02: 3D mouth 3 Hosp jo-ann (ascorbic 39 (three) l acid with times a sia hips) day. 500 MG tablet clonAZEPAM Yes .5mg Take 0.5 Met hodi (KlonoPIN) 1-[address] 0.5 MG 13:02: mouth as Hospita tablet 39 needed for l anxiety. apixaban 2020-06 No 10mg Q.5D Take 10 [...] morning and 5 mg at night vancomycin 2020-06 No 750mg Q.90541809 Infuse 750 [facility] 750 mg in 07-08 [id number] mg into a [address] sodium 00:00: 05:59 3W venous Hospita chloride 00 :00 catheter 3 l 0.9% 250 mL (three) IVPB times a week for 19 days. Administer 3 times weekly in dialysis vancomycin 2020-06- No 750mg Q.51088689 Infuse 750 [facility] 750 mg in 07-08 [id number] mg into a [address] sodium 00:00: 05:59 3W venous Hospita chloride 00 :00 catheter 3 l 0.9% 250 mL (three) IVPB times a week for 19 days. Administer 3 times weekly in dialysis vancomycin 2020-06- No 750mg Q.81547923 Infuse 750 [facility] 750 mg in 07-08 [id number] mg into a [address] sodium 00:00: 05:59 3W venous Hospita chloride 00 :00 catheter 3 l 0.9% 250 mL (three) IVPB times a week for 19 days. Administer 3 times weekly in dialysis vancomycin 2020-06- No 750mg Q.52134576 Infuse 750 [facility] 750 mg in 07-08 [id number] mg into a [address] sodium 00:00: 05:59 3W venous Hospita chloride 00 :00 catheter 3 l 0.9% 250 mL (three) IVPB times a week for 19 days. Administer 3 times weekly in dialysis vancomycin 2020-06- No 750mg Q.18586191 Infuse 750 [facility] 750 mg in 07-08 [id number] mg into a [address] sodium 00:00: 05:59 3W venous Hospita chloride 00 :00 catheter 3 l 0.9% 250 mL (three) IVPB times a week for 19 days. Administer 3 times weekly in dialysis vancomycin 2020-06- No 750mg Q.07370252 Infuse 750 [facility] 750 mg in 07-08 [id number] mg into a [address] sodium 00:00: 05:59 3W venous Hospita chloride 00 :00 catheter 3 l 0.9% 250 mL (three) IVPB times a week for 19 days. Administer 3 times weekly in dialysis vancomycin 2020-06- No 750mg Q.66660544 Infuse 750 [facility] 750 mg in 07-08 [id number] mg into a [address] sodium 00:00: 05:59 3W venous Hospita chloride 00 :00 catheter 3 l 0.9% 250 mL (three) IVPB times a week for 19 days. Administer 3 times weekly in dialysis vancomycin 2020-06- No 750mg Q.05634633 Infuse 750 [facility] 750 mg in 07-08 [id number] mg into a [address] sodium 00:00: 05:59 3W venous Hospita chloride 00 :00 catheter 3 l 0.9% 250 mL (three) IVPB times a week for 19 days. Administer 3 times weekly in dialysis vancomycin 2020-06- No 750mg Q.61328121 Infuse 750 [facility] 750 mg in 07-08 [id number] mg into a [address] sodium 00:00: 05:59 3W venous Hospita chloride 00 :00 catheter 3 l 0.9% 250 mL (three) IVPB times a week for 19 days. Administer 3 times weekly in dialysis vancomycin 2020-06- No 750mg Q.17329429 Infuse 750 [facility] 750 mg in 07-08 [id number] mg into a [address] sodium 00:00: 05:59 3W venous Hospita chloride 00 :00 catheter 3 l 0.9% 250 mL (three) IVPB times a week for 19 days. Administer 3 times weekly in dialysis vancomycin 2020-06- No 750mg Q.91833008 Infuse 750 [facility] 750 mg in 07-08 [id number] mg into a [address] sodium 00:00: 05:59 3W venous Hospita chloride 00 :00 catheter 3 l 0.9% 250 mL (three) IVPB times a week for 19 days. Administer 3 times weekly in dialysis vancomycin 2020-06- No 750mg Q.59575086 Infuse 750 [facility] 750 mg in 07-08 [id number] mg into a [address] sodium 00:00: 05:59 3W venous Hospita chloride 00 :00 catheter 3 l 0.9% 250 mL (three) IVPB times a week for 19 days. Administer 3 times weekly in dialysis vancomycin 2020-06- No 750mg Q.93158868 Infuse 750 [facility] 750 mg in 07-08 [id number] mg into a [address] sodium 00:00: 05:59 3W venous Hospita chloride 00 :00 catheter 3 l 0.9% 250 mL (three) IVPB times a week for 19 days. Administer 3 times weekly in dialysis HYDROcodone 2020-06 1{tbl} Q6H Take 1 [facility] -acetaminop 06-[address] [facility] ([facility]) 00:00: 05:59 mouth Hosp jo-ann 5-325 mg 00 :00 every 6 l per tablet (six) hours as needed for severe pain for up to 5 days .acute pain. Max Daily Amount: 4 tablets HYDROcodone 2020-06 1{tbl} Q6H Take 1 [facility] -acetaminop -19 07- tablet by [facility] ([employer]) 00:00: 05:59 mouth Hosp jo-ann 5-325 mg 00 :00 every 6 l per tablet (six) hours as needed for severe pain for up to 5 days .acute pain. Max Daily Amount: 4 tablets HYDROcodone 2020-06 1{tbl} Q6H Take 1 [facility] -acetaminop 2-19 07- tablet by [facility] ([employer]) 00:00: 05:59 mouth Hosp jo-ann 5-325 mg 00 :00 every 6 l per tablet (six) hours as needed for severe pain for up to 5 days .acute pain. Max Daily Amount: 4 tablets HYDROcodone 2020-06 1{tbl} Q6H Take 1 [facility] -acetaminop 2-29 -[address] [facility] ([employer]) 00:00: 05:59 mouth Hosp jo-ann 5-325 mg 00 :00 every 6 l per tablet (six) hours as needed for severe pain for up to 5 days .acute pain. Max Daily Amount: 4 tablets HYDROcodone 2020-06 1{tbl} Q6H Take 1 [facility] -acetaminop 2-29 -[address] [facility] ([employer]) 00:00: 05:59 mouth Hosp jo-ann 5-325 mg 00 :00 every 6 l per tablet (six) hours as needed for severe pain for up to 5 days .acute pain. Max Daily Amount: 4 tablets HYDROcodone 2020-06 1{tbl} Q6H Take 1 [facility] -acetaminop 2-29 -[address] [facility] ([employer]) 00:00: 05:59 mouth Hosp jo-ann 5-325 mg 00 :00 every 6 l per tablet (six) hours as needed for severe pain for up to 5 days .acute pain. Max Daily Amount: 4 tablets HYDROcodone 2020-06 1{tbl} Q6H Take 1 [facility] -acetaminop 2-29 -[address] [facility] ([employer]) 00:00: 05:59 mouth Hosp jo-ann 5-325 mg 00 :00 every 6 l per tablet (six) hours as needed for severe pain for up to 5 days .acute pain. Max Daily Amount: 4 tablets HYDROcodone 2020-06 1{tbl} Q6H Take 1 [facility] -acetaminop 2-29 -[address] [facility] ([employer]) 00:00: 05:59 mouth Hosp jo-ann 5-325 mg 00 :00 every 6 l per tablet (six) hours as needed for severe pain for up to 5 days .acute pain. Max Daily Amount: 4 tablets HYDROcodone 2020-06 1{tbl} Q6H Take 1 [facility] -acetaminop 2-29 -[address] [facility] ([employer]) 00:00: 05:59 mouth Hosp jo-ann 5-325 mg 00 :00 every 6 l per tablet (six) hours as needed for severe pain for up to 5 days .acute pain. Max Daily Amount: 4 tablets HYDROcodone 2020-06- No [id number] 1{tbl} Q6H Take 1 [facility] -acetaminop 2-29 -[address] hen ([employer]) 00:00: 05:59 mouth Hosp jo-ann 5-325 mg 00 :00 every 6 l per tablet (six) hours as needed for severe pain for up to 5 days .acute pain. Max Daily Amount: 4 tablets HYDROcodone 2020-06- No [id number] 1{tbl} Q6H Take 1 [facility] -acetaminop 2-29 -[address] [facility] ([employer]) 00:00: 05:59 mouth Hosp jo-ann 5-325 mg 00 :00 every 6 l per tablet (six) hours as needed for severe pain for up to 5 days .acute pain. Max Daily Amount: 4 tablets HYDROcodone 2020-06- No [id number] 1{tbl} Q6H Take 1 [facility] -acetaminop 2-29 -[address] [facility] ([employer]) 00:00: 05:59 mouth Hosp jo-ann 5-325 mg 00 :00 every 6 l per tablet (six) hours as needed for severe pain for up to 5 days .acute pain. Max Daily Amount: 4 tablets HYDROcodone 2020-06 No 1{tbl} Q6H Take 1 [facility] -acetaminop 2-29 -[address] [facility] ([employer]) 00:00: 05:59 mouth Hosp jo-ann 5-325 mg [...] QD Take 1 Met hodi (PLAVIX) 75 2-06 - tablet (75 s t mg tablet 00:00: [...] 30 per tablet days. HYDROcodone 2020-06 No [id number] 2{tbl} Q8H Take 2 [facility] -acetaminop 2- 12-13 tablets by [employer] ([facility]) 00:00: 05:59 mouth Hosp jo-ann 5-325 mg 00 :00 every 8 l per tablet (eight) hours as needed for severe pain for up to 7 days .acute pain. Max Daily Amount: 6 tablets HYDROcodone 2020-0628 2{tbl} Q8H Take 2 Methodi -acetaminop 2-05 12-13 tablets by s t hen ([employer]) 00:00: 05:59 mouth Hosp jo-ann 5-325 mg 00 :00 every 8 l per tablet (eight) hours as needed for severe pain for up to 7 days .acute pain. Max Daily Amount: 6 tablets HYDROcodone 2020-06 14087 2{tbl} Q8H Take 2 Methodi -acetaminop 2-05 12-13 tablets by s t hen ([employer]) 00:00: 05:59 mouth Hosp jo-ann 5-325 mg 00 :00 every 8 l per tablet (eight) hours as needed for severe pain for up to 7 days .acute pain. Max Daily Amount: 6 tablets HYDROcodone 2020-06 [id number] 2{tbl} Q8H Take 2 Methodi -acetaminop 2-05 12-13 tablets by s t hen ([employer]) 00:00: 05:59 mouth Hosp jo-ann 5-325 mg 00 :00 every 8 l per tablet (eight) hours as needed for severe pain for up to 7 days .acute pain. Max Daily Amount: 6 tablets HYDROcodone 2020-0628 2{tbl} Q8H Take 2 Methodi -acetaminop 2-05 12-13 tablets by s t hen ([employer]) 00:00: 05:59 mouth Hosp jo-ann 5-325 mg 00 :00 every 8 l per tablet (eight) hours as needed for severe pain for up to 7 days .acute pain. Max Daily Amount: 6 tablets HYDROcodone 2020-0628 2{tbl} Q8H Take 2 Methodi -acetaminop 2-05 12-13 tablets by s t hen ([employer]) 00:00: 05:59 mouth Hosp jo-ann 5-325 mg 00 :00 every 8 l per tablet (eight) hours as needed for severe pain for up to 7 days .acute pain. Max Daily Amount: 6 tablets HYDROcodone 2020-0628 2{tbl} Q8H Take 2 Method[facility] -acetaminop 2-05 12-13 tablets by s t hen ([employer]) 00:00: 05:59 mouth Hosp jo-ann 5-325 mg 00 :00 every 8 l per tablet (eight) hours as needed for severe pain for up to 7 days .acute pain. Max Daily Amount: 6 tablets HYDROcodone 2020-06 2{tbl} Q8H Take 2 Methodi -acetaminop 2-05 12-13 tablets by s t hen ([employer]) 00:00: 05:59 mouth Hosp jo-ann 5-325 mg 00 :00 every 8 l per tablet (eight) hours as needed for severe pain for up to 7 days .acute pain. Max Daily Amount: 6 tablets HYDROcodone 2020-06 2{tbl} Q8H Take 2 Methodi -acetaminop 2-05 12-13 tablets by s t hen ([employer]) 00:00: 05:59 mouth Hosp jo-ann 5-325 mg 00 :00 every 8 l per tablet (eight) hours as needed for severe pain for up to 7 days .acute pain. Max Daily Amount: 6 tablets HYDROcodone 2020-0628 2{tbl} Q8H Take 2 [facility]i -acetaminop 2-05 12-13 tablets by s t hen ([employer]) 00:00: 05:59 mouth Hosp jo-ann 5-325 mg 00 :00 every 8 l per tablet (eight) hours as needed for severe pain for up to 7 days .acute pain. Max Daily Amount: 6 tablets HYDROcodone 2020-06 2{tbl} Q8H Take 2 [facility] -acetaminop 2-05 12-13 tablets by s t hen ([employer]) 00:00: 05:59 mouth Hosp jo-ann 5-325 mg 00 :00 every 8 l per tablet (eight) hours as needed for severe pain for up to 7 days .acute pain. Max Daily Amount: 6 tablets predniSONE 2020-06 No [id number] Take M ethodi (DELTASONE) 07-18 Prednisone s t 50 mg 00:00: 00:00 50mg 13 Hospita tablet 00 :00 hours, 7 l hours, and 1 hour prior to scheduled procedure on 05/19/2021 for contrast allergy prophylaxi s. predniSONE 2020-06 No [id number] Take M ethodi (DELTASONE) 07-18 12-05 Prednisone s t 50 mg 00:00: 00:00 50mg 13 Hospita tablet 00 :00 hours, 7 l hours, and 1 hour prior to scheduled procedure on 05/19/2021 for contrast allergy prophylaxi s. predniSONE 2020-06- No [id number] Take M ethodi (DELTASONE) 07-18 12-05 Prednisone s t 50 mg 00:00: 00:00 50mg 13 Hospita tablet 00 :00 hours, 7 l hours, and 1 hour prior to scheduled procedure on 05/19/2021 for contrast allergy prophylaxi s. predniSONE 2020-06- No [id number] Take M ethodi (DELTASONE) 07-18 12-05 Prednisone s t 50 mg 00:00: 00:00 50mg 13 Hospita tablet 00 :00 hours, 7 l hours, and 1 hour prior to scheduled procedure on 05/19/2021 for contrast allergy prophylaxi s. predniSONE 2020-06- No [id number] Take M ethodi (DELTASONE) 07-18 12-05 Prednisone s t 50 mg 00:00: 00:00 50mg 13 Hospita tablet 00 :00 hours, 7 l hours, and 1 hour prior to scheduled procedure on 05/19/2021 for contrast allergy prophylaxi s. predniSONE 2020-06- No [id number] Take M ethodi (DELTASONE) 07-18 12-05 Prednisone s t 50 mg 00:00: 00:00 50mg 13 Hospita tablet 00 :00 hours, 7 l hours, and 1 hour prior to scheduled procedure on 05/19/2021 for contrast allergy prophylaxi s. predniSONE 2020-06- No [id number] Take M ethodi (DELTASONE) 07-18 12-05 Prednisone s t 50 mg 00:00: 00:00 50mg 13 Hospita tablet 00 :00 hours, 7 l hours, and 1 hour prior to scheduled procedure on 05/19/2021 for contrast allergy prophylaxi s. predniSONE 2020-06- No [id number] Take M ethodi (DELTASONE) 07-18 12-05 Prednisone s t 50 mg 00:00: 00:00 50mg 13 Hospita tablet 00 :00 hours, 7 l hours, and 1 hour prior to scheduled procedure on 05/19/2021 for contrast allergy prophylaxi s. predniSONE 2020-06- No [id number] Take M ethodi (DELTASONE) 07-18 12-05 Prednisone s t 50 mg 00:00: 00:00 50mg 13 Hospita tablet 00 :00 hours, 7 l hours, and 1 hour prior to scheduled procedure on 05/19/2021 for contrast allergy prophylaxi s. predniSONE 2020-06- No [id number] Take M ethodi (DELTASONE) 07-18 12-05 Prednisone [...] by mouth ity of (PROTONIX) 11:08: daily. [place] 20 mg EC 01 Medical tablet Branch Cholecalcif 2020-06 Yes 5000U Take 5,000 Univers mansi, 0-03 Units by ity of Vitamin D3, 11:08: mouth. [facility] s 125 mcg 01 Medical (5,000 Branch unit) tablet proMETHazin 2020-06 Yes 25mg Take 25 mg Univers e 25 mg 0-03 by mouth. ity of tablet 11:08: [place] [address] Medical Branch aspirin 81 2020-06 Yes 81mg Take 1 Unive rs mg chewable 0-03 tablet by ity of tablet 11:08: mouth [place] [address] daily. Medical Branch divalproex 2020-06 Yes 500mg Take 500 Un lori ER 0-01 mg by ity of (DEPAKOTE 23:08: mouth 2 [place] ER) 500 mg 36 (two) Medical 24 hr times Branch tablet daily. gabapentin 2020-06 Yes 100mg Take 100 Un lori 100 mg 0-01 mg by ity of capsule 23:08: mouth 2 [place] 36 (two) Medical times Branch daily. vitamin C 2020-06 Yes 2000mg Take 2,000 Univers with sia 0-01 mg by ity of hips 23:08: mouth 2 [place] (VITAMIN C) 36 (two) Medical 1,000 mg times Branch tablet daily. metoprolol 2020-06 Yes 50mg Take 50 mg U nivers tartrate 50 0-01 by mouth ity of mg tablet 23:08: daily. [place] [address] Medical Branch folic 2020-06 Yes 800mg Take 800 Univers acid/vit B 0-01 mg by ity of complex and 23:08: mouth [place] C 36 daily. Medical (DIALYVITE Branch 800 ORAL) linagliptin 2020-06 Yes Take by Uni vers (TRADJENTA) 0-01 mouth. ity of 5 mg tablet 23:08: [place] [address] Medical Branch spironolact 2020-06 Yes 50mg Take 50 mg Univers one 50 mg 0-01 by mouth ity of tablet 23:08: daily. [place] [address] Medical Branch pravastatin 2020-06 Yes 40mg Take 40 mg Univers 40 mg 0-01 by mouth ity of tablet 23:08: daily. [place] [address] Medical Branch mv-mn/iron/ 2020-06 Yes 1{capsu Take 1 U nivers folic 0-01 le} capsule by ity of acid/herb 23:08: mouth [place] 190 36 daily. Medical (VITAMIN D3 Branch COMPLETE ORAL) SERTraline 2020-06 Yes 50mg Take 50 mg U nivers 50 mg 0-01 by mouth ity of tablet 23:08: daily. [place] [address] Medical Branch calcium 2020-06 Yes 667mg Take 667 Unive rs acetate 667 0-01 mg by ity of mg capsule 23:08: mouth 3 [place] 36 (three) Medical times Branch daily with meals. cetirizine 2020-06 Yes 1{tbl} Take 1 Uni vers HCl/pseudoe 0-01 tablet by ity of phedrine 23:08: mouth [place] (ZYRTEC-D 36 daily. Medical ORAL) Branch furosemide 2020-06 Yes 40mg Take 40 mg U nivers 40 mg 0-01 by mouth 2 ity of tablet 23:08: (two) [place] [id number] times Medical daily. Branch divalproex 2020-06 Yes 500mg Take 500 Un lori ER 0-01 mg by ity of (DEPAKOTE 23:08: mouth 2 [place] [facility]) 500 mg 36 (two) Medical 24 [...] mouth ity of mg tablet 23:08: daily. [place] [id number] Medical Branch folic 2020-06 Yes 800mg Take 800 [facility] acid/vit B 0-01 mg by ity of complex and 23:08: mouth [place] C 36 daily. Medical (DIALYVITE Branch 800 ORAL) linagliptin 2020-06 Yes Take by Uni vers (TRADJENTA) 0-01 mouth. ity of 5 mg tablet 23:08: [address] Branch spironolact 2020-06 Yes 50mg Take 50 mg Univers one 50 mg 0-01 by mouth ity of tablet 23:08: daily. [address] Branch pravastatin 2020-06 Yes 40mg Take 40 mg Univers 40 mg 0-01 by mouth ity of tablet 23:08: daily. [address] Branch mv-mn/iron/ 2020-06 Yes 1{capsu Take 1 U nivers folic 0-01 le} capsule by ity of acid/herb 23:08: mouth [place] 190 36 daily. Medical (VITAMIN D3 Branch COMPLETE ORAL) SERTraline 2020-06 Yes 50mg Take 50 mg U nivers 50 mg 0-01 by mouth ity of tablet 23:08: daily. [address] Branch calcium 2020-06 Yes 667mg Take 667 Unive rs acetate 667 0-01 mg by ity of mg capsule 23:08: mouth [place] (three) Medical times Branch daily with meals. cetirizine 2020-06 Yes 1{tbl} Take 1 Uni vers HCl/pseudoe 0-01 tablet by ity of phedrine 23:08: mouth [place] (ZYRTEC-D 36 daily. Medical ORAL) Branch furosemide 2020-06 Yes 40mg Take 40 mg U nivers 40 mg 0-01 by mouth 2 ity of tablet 23:08: (two) [place] times Medical daily. Branch BUPROPION 2020-06- No [...] (Same as: l 01:36: Mylicon) Vin 00 Simethicone No Notes: Mendoza janice 8-11 (Same as: l 01:36: Mylicon) [place] 00 epoetin Yes 2,000 unit Mendoza janice [...] naeem 00 13 cap, 0 Refill(s) gabapentin Yes 300 mg = [...] tab, PO, l tablet 19:33: BID, 0 [place] 00 Refill(s) buPROPion Yes 75 mg = 1 Mem oria 75 mg oral 8-10 tab, PO, l tablet 19:33: Daily, # [place] 00 14 tab, 0 Refill(s) amLODIPine Yes 10 mg = 1 Me moria 10 mg oral 8-10 tab, PO, l tablet 19:33: Daily, # [place] 00 30 tab, 2 Refill(s) busPIRone Yes 7.5 mg = 1 Me moria 7.5 mg oral 8-10 tab, PO, l tablet 19:33: BID, 0 [place] 00 Refill(s) buPROPion Yes 75 mg = 1 Mem oria 75 mg oral 8-10 tab, PO, l tablet 19:33: Daily, # [place] 00 14 tab, 0 Refill(s) Norvasc No Notes: Memoria 8-10 (Same as: l 17:35: Norvasc) Norvasc No Notes: Memoria 8-10 (Same as: l 17:35: Norvasc) Dextrose No 25 gm, 50 Mendoza janice 50% Syringe 8-10 mL, Route: l (D50W) 13:40: IVP, Drug Jake n 00 Form: INJ, Dosing Weight 74.5, kg, ONCE, Start date: 01/28/21 8:40:00 CDT, Stop date: 01/28/21 8:40:00 CDT, Dextrose 50%: 25 gm = 50 mL, 0 Dextrose No 25 gm, 50 Mendoza janice 50% Syringe 8-10 mL, Route: l (D50W) 13:40: IVP, Drug Jake n 00 Form: INJ, Dosing Weight 74.5, kg, ONCE, Start date: 01/28/21 8:40:00 CDT, Stop date: 01/28/21 8:40:00 CDT, Dextrose 50%: 25 gm = 50 mL, 0 Epogen No Notes: Margi 01-27 WASTE: F/P l 22:00: - Red; E Red MEDICIATIO N WASTE Product Size: 2,000 unit Product Wasted: ____unit Epogen No Notes: Memoria 01-27 WASTE: F/P l 22:00: - Red; E Vin Red MEDICIATIO N WASTE Product Size: 2,000 unit Product Wasted: ____unit D5NS 1,000 No 1,000 mL, Me moria mL 01-27 Rate: 20 l 20:28: ml/hr, [place] 00 Infuse over: 50 hr, Route: IV, [...] 01-27 not exceed l 09:29: 4 gm/day. [place] (Same as: Tylenol) tramadol No Notes: Not Mem oria hydrochlori 01-27 to exceed l de 50 MG 09:29: 400mg/day. Her braden Oral Tablet 00 (Same As: Ultram) Tylenol No Notes: Do Memor ia 01-27 not exceed l 09:29: 4 gm/day. [place] 00 (Same as: Tylenol) tramadol No Notes: Not Mem oria hydrochlori 01-27 to exceed l de 50 MG 09:29: 400mg/day. Her braden Oral Tablet 00 (Same As: Ultram) heparin No Notes: Memoria 01-27 porcine l 02:00: heparin heparin No Notes: Memoria 01-27 porcine l 02:00: heparin Magnesium No Notes: Memori a Oxide 01-23 (Same as: l 22:54: Mag-Ox Vin 400) Magnesium oxide 478sr=069m g elemental magnesium Dose=____m g magnesium oxide (___mg elemental magnesium) Magnesium No Notes: Memori a Oxide 8-05 (Same as: l 22:54: Mag-Ox Vin 00 400) Magnesium oxide 419ms=065l g elemental magnesium Dose=____m g magnesium oxide (___mg elemental magnesium) Coreg No Notes: Memoria 8-05 Give with l 02:00: food. [place] (Same As: Coreg) Coreg No Notes: Memoria 8-05 Give with l 02:00: food. Vin 00 (Same As: Coreg) Buspar No Notes: Memoria 8-04 (Same As: l 22:00: BuSpar) Vin 00 Buspar No Notes: Memoria 8-04 (Same As: l 22:00: BuSpar) Fentanyl No Notes: Memoria 8-04 (Same as: l 21:06: Sublimaze) [place] 00 Preservati ve free. Fentanyl No Notes: Memoria 8-04 (Same as: l 21:06: Sublimaze) [place] 00 Preservati ve free. Norvasc No Notes: [...] No Notes: Memor ia 40 MG Oral 804 (Same as: l Tablet 14:00: Lasix) May nn 00 cause GI upset. Give with food or milk. Tradjenta No 5 mg, 1 Memor ia 8-04 tab, l 14:00: Route: PO, Drug form: TAB, Daily, Dosing Weight 72, kg, Start date: 01/22/21 9:00:00 CDT Metoprolol No Notes: Memor ia Succinate 04 (Same as: l ER 100 mg 14:00: [...] - not exceed l 09:44: 4 gm/day. (Same as: Tylenol) Fentanyl No Notes: Memoria 8- (Same as: l 09:44: Sublimaze) Preservati ve free. Tramadol No Notes: Not Mem oria 8- to exceed l 09:44: 400mg/day. (Same As: Ultram) Tylenol No Notes: Do Memor ia 8-04 not exceed l 09:44: 4 gm/day. Vin 00 (Same as: Tylenol) Fentanyl No Notes: Memoria 8-04 (Same as: l 09:44: Sublimaze) Vin 00 Preservati ve free. Fentanyl No Notes: Memoria 8-04 (Same as: l 04:46: Sublimaze) [place] 00 Preservati ve free. Fentanyl No Notes: Memoria 8-04 (Same as: l 04:46: Sublimaze) [place] 00 Preservati ve free. Fentanyl No Notes: Memoria 8-04 (Same as: l 02:01: Sublimaze) Vin 00 Preservati ve free. Fentanyl No Notes: Memoria 8-04 (Same as: l 02:01: Sublimaze) Vin 00 Preservati ve free. Coreg No Notes: Memoria 8-04 Give with l 02:00: food. (Same As: Coreg) Saline No Notes: Memoria Flush 0.9% 8-04 Same as: l 02:00: BD [place] 00 Posiflush Sterile Valproate No 1,000 mg, Mem oria 8-04 2 tab, l 02:00: Route: PO, [place] 00 Drug form: ERTAB, Bedtime, Start date: 01/21/21 21:00:00 CDT, Duration: 30 day, Stop date: 02/19/21 21:00:00 CDT, 0 Coreg No Notes: Memoria 8-04 Give with l 02:00: food. [place] 00 (Same As: Coreg) Saline No Notes: Memoria Flush 0.9% 8-04 Same as: l 02:00: BD [place] 00 Posiflush Sterile Valproate No 1,000 mg, Mem oria 8-04 2 tab, l 02:00: Route: PO, Vin 00 Drug form: ERTAB, Bedtime, Start date: 01/21/21 21:00:00 CDT, Duration: 30 day, Stop date: 02/19/21 21:00:00 CDT, 0 heparin 2021-0 No Notes: Memoria 8-03 porcine l 21:00: heparin heparin 2020-0 No Notes: Memoria 01-21 porcine l 21:00: heparin Dextrose 2020-0 No [...] (Same as: l Capsule 19:58: Neurontin) Herm gabapentin No Notes: Memor ia 300 MG [...] Same as: l 200 mL 18:26: Cardene [place] (Titrate.) 00 Concentrat IV 40 mg ion: (0.2 mg /1 ml ) Cyproheptad No 4 mg, 1 Mem oria ine -03 tab, l 18:00: Route: PO, [place] 00 Drug form: TAB, TID, Dosing Weight 72, kg, Start date: 01/21/21 13:00:00 CDT, Duration: 30 day, Stop date: 02/20/21 9:00:00 CDT Cyproheptad No 4 mg, 1 Mem oria ine - tab, l 18:00: Route: PO, Drug form: TAB, TID, Dosing Weight 72, kg, Start date: 01/21/21 13:00:00 CDT, Duration: 30 day, Stop date: 02/20/21 9:00:00 CDT Albuterol No Notes: SEE Sc savannah 01-21 RT l 17:49: DOCUMENTAT ION (Same as: Proventil) Albuterol No Notes: SEE Me moria 8-03 RT l 17:49: DOCUMENTAT [place] 00 ION (Same as: Proventil) albuterol No 180 Memoria 90 mcg/inh 8-03 [...] propofol No Notes: If M emoria mg/mL 8- Diprivan - l (Titrate.) 17:31: change Nidia nn IV 1,000 mg 00 bottle & tubing every 12 hr Per state nursing law propofol can only be given by a nurse if patient is intubated or being intubated (unless the nurse is a PHOTOGRAPHIC ENGINEER). Same as: Diprivan Nystatin No Notes: Memoria 100 UNT/MG 8-03 (Same l Topical 17:31: as:Mycosta Herm naeem Powder 00 tin, Nilstat) For external use only. Saline No Notes: Memoria Flush 0.9% 8-03 Same as: l 17:31: BD [place] 00 Posiflush Sterile propofol No Notes: If M emoria mg/mL 8-03 Diprivan - l (Titrate.) 17:31: change Nidia nn IV 1,000 mg 00 bottle & tubing every 12 hr Per state nursing law propofol can only be given by a nurse if patient is intubated or being intubated (unless the nurse is a PHOTOGRAPHIC ENGINEER). Same as: Diprivan midazolam No Route: IV, Me moria (ANES) 01-21 Drug form: l 17:18: SOLN, Vin 00 ONCE, Stop date: 01/21/21 12:18:00 CDT fentaNYL No Route: IV, Mem oria (ANES) 01-21 Drug form: l 17:18: INJ, ONCE, Stop date: 01/21/21 12:18:00 CDT niCARdipine No Route: IV, Memoria (ANES) 01-21 Drug form: l 17:18: INJ, ONCE, Stop date: 01/21/21 12:18:00 CDT midazolam No Route: IV, Me moria (ANES) 01-21 Drug form: l 17:18: SOLN, [place] ONCE, Stop date: 01/21/21 12:18:00 CDT fentaNYL [...] ONCE, Stop date: 01/21/21 11:20:00 CDT glycopyrrol No Route: IV, Memoria ate (ANES) 01-21 Drug form: l 16:20: INJ, ONCE, Stop date: 01/21/21 11:20:00 CDT EPINEPHrine 2020-0 No Route: IV, Memoria (ANES) 01-21 Drug form: l 16:20: INJ, ONCE, Stop date: 01/21/21 11:20:00 CDT ePHEDrine 0 No Route: IV, Me moria (ANES) 01-21 Drug form: l 16:09: INJ, ONCE, Stop date: 01/21/21 11:09:00 CDT phenylephri 0 No Route: IV, Memoria ne (ANES) 01-21 Drug form: l 16:09: INJ, ONCE, Stop date: 01/21/21 11:09:00 CDT ePHEDrine No Route: IV, Me moria [...] CDT, Stop date: 01/21/21 10:20:00 CDT propofol No Route: IV, Mem oria (ANES) 10 8-03 Drug form: l mg 14:20: INJ, Start [...] Memoria 8-03 (Same as: l 13:16: Sublimaze) Preservati ve free. Hydromorpho No Notes: Mendoza janice ne 8-03 Same as l 13:16: Dilaudid Flumazenil No Notes: Memor ia 8-03 (Same as: l 13:16: Romazicon) Naloxone No [...] as: Phenergan) Simethicone No Notes: Mendoza janice 8 (Same as: l 13:16: Mylicon, Vin Phazyme, Genasyme) Hydralazine No Notes: Mendoza janice [...] Take 1 UT acid-vitami 7-16 tablet by [facility] n B 13:03: mouth 1 complex-vit 11 [...] n [XIFAXAN] 00 tab, 2 Refill(s), Pharmacy: [facility], 154.94, cm, 12/24/20 10:43:00 CDT, Height, 71.818, kg, 12/24/20 10:43:00 CDT, Weight rifaximin 0 Yes 550 mg = 1 Me moria 550 MG Oral 7-06 tab, PO, l Tablet 18:46: TID, # 42 Jake n [XIFAXAN] 00 tab, 2 Refill(s), Pharmacy: [facility], 154.94, cm, 12/24/20 10:43:00 CDT, Height, 71.818, kg, 12/24/20 10:43:00 CDT, Weight {2 (480 ML 0 Yes See Memoria Magnesium 7-06 Instructio l Sulfate 18:12: ns, take Jake n 0.0277 00 as MEQ/ML / directed, potassium give sulfate clenpiq if 0.0374 not MEQ/ML / covered by sodium insurance, sulfate # 1 ea, 0 0.257 Refill(s), MEQ/ML Oral Pharmacy: Solution) } [facility] [Suprep 808, Bowel Prep 154.94, Kit] [...] 0.257 Refill(s), MEQ/ML Oral Pharmacy: Solution) } [facility] [Suprep 808, Bowel Prep 154.94, Kit] [...] day, # 90 tab, 3 Refill(s), Pharmacy: [facility], 154.94, cm, 12/24/20 10:43:00 CDT, Height, 71.818, kg, 12/24/20 10:43:00 CDT, Weight cyproheptad 0 Yes 4 mg = 1 Me moria ine 4 mg 7-06 tab, PO, l oral tablet 18:10: TID, X 30 H ermann 00 day, # 90 tab, 3 Refill(s), Pharmacy: [facility], 154.94, cm, 12/24/20 10:43:00 CDT, Height, 71.818, kg, 12/24/20 10:43:00 CDT, Weight Zinc 0 Yes 140 mg, Memoria 7-06 PO, Daily, l 15:54: 0 [place] 00 Refill(s) Elderberry 0 Yes 0 Memoria preparation 7-06 Refill(s) l 15:54: [place] 00 Zinc Yes 140 mg, Memoria 7-06 PO, [...] Memoria 5000 7-06 Refill(s) l 15:53: busPIRone Yes 7.5mg Take 7.5 Uni vers [...] hr each day. tablet ascorbic Yes 500mg Q.[id number] Take 500 UT acid 5-15 [id number] mg by Health (Vitamin C) 00:00: 3D [...] tablet 00 Medical Branch GLIPIZIDE 5 Yes [id number] TAKE 1 Univers mg tablet 4-06 TABLET BY ity o f 00:00: MOUTH [place] 00 TWICE Medical DAILY Branch BEFORE BREAKFAST AND BEFORE SUPPER doxazosin 4 2020- No 4mg Take 4 mg Univers mg tablet -12 19-07 by mouth 2 ity of 10:52: 00:00 (two) [place] 22 :00 times Medical daily. Branch doxazosin 4 Yes 4mg Take 1 Univ ers mg tablet 1-07 tablet by ity o f 00:00: mouth at [place] 00 bedtime. Medical Branch doxazosin 4 Yes 4mg Take 1 Univ ers mg tablet 1-07 tablet by ity o f 00:00: mouth at [place] 00 bedtime. Medical Branch glipiZIDE 5 2019-06- No [id number] 5mg Take 1 Univers mg tablet 1-11 [...] by ity of tablet 00:00: mouth at [place] 00 bedtime. Medical Branch traZODone Yes 150mg Take 150 Uni vers 150 mg 8-13 mg by ity of tablet 00:00: mouth at [place] 00 bedtime. Medical Branch erythromyci 2020- No [id number] .5[in_u Place 0.5 Univers n 5 mg/gram [...] as ophthalmic needed for drops Dry eyes. traMADol 2017-0 Yes 50mg Take 50 mg [...] l 59 Center hydrALAZINE 2017-0 Yes 100mg Q.26362729 Take [address] [facility] (APRESOLINE 7-20 [id number] mg by L ukes ) 100 MG 15:20: 3D mouth 3 Medica l tablet 59 (three) Center times daily. magnesium 2017-0 Yes 400mg QD Take [address] [facility] oxide 7-20 mg by [facility] (MAG-OX) 15:20: mouth Medical 400 mg 59 daily. Center tablet metoclopram 2017-0 Yes 10mg Q.01686622 Take [address] [facility] gadiel HCl 7-20 [id number] by mouth 3 [facility] (REGLAN) 10 15:20: [...] l 59 Center hydrALAZINE 2017-0 Yes 100mg Q.47523604 Take [address] [facility] (APRESOLINE 7-20 [id number] mg by L ukes ) 100 MG 15:20: 3D mouth 3 Medica l tablet 59 (three) Center times daily. magnesium 2017-0 Yes 400mg QD Take [address] [facility] oxide 7-20 mg by [facility] (MAG-OX) 15:20: mouth Medical 400 mg 59 daily. Center tablet metoclopram 2017-0 Yes 10mg Q.71704402 Take [address] [facility] gadiel HCl 7-20 [id number] by mouth 3 [facility] (REGLAN) 10 15:20: [...] l 59 Center hydrALAZINE 2017-0 Yes 100mg Q.77151663 Take [address] [facility] (APRESOLINE 7-20 [id number] mg by L ukes ) 100 MG 15:20: 3D mouth 3 Medica l tablet 59 (three) Center times daily. magnesium 2017-0 Yes 400mg QD Take [address] [facility] [address] oxide 7-20 mg by [facility] (MAG-OX) 15:20: mouth Medical 400 mg 59 daily. Center tablet metoclopram 2017-0 Yes 10mg Q.12932636 Take [address] [facility] gadiel HCl 7-20 [id number] by mouth 3 [facility] (REGLAN) 10 15:20: [...] l 59 Center hydrALAZINE 20170 Yes 100mg Q.25197150 Take [address] [facility] (APRESOLINE 7-20 [id number] mg by L es ) 100 MG 15:20: 3D mouth 3 Medica l tablet 59 (three) Center times daily. magnesium 2017-0 Yes 400mg QD Take [address] [facility] oxide 7-20 mg by [facility] (MAG-OX) 15:20: mouth Medical 400 mg 59 daily. Center tablet metoclopram 2017-0 Yes 10mg Q.10918941 Take [address] [facility] gadiel HCl 7-20 [id number] by mouth 3 [facility] (REGLAN) 10 15:20: [...] l 59 Center hydrALAZINE 2017-0 Yes 100mg Q.02189808 Take [address] [facility] [address] (APRESOLINE 7-20 [id number] mg by L ukes ) 100 MG 15:20: 3D mouth 3 Medica l tablet 59 (three) Center times daily. magnesium 2017- Yes 400mg QD Take [address] [facility] [address] oxide 7-20 mg by [facility] (MAG-OX) 15:20: mouth Medical 400 mg 59 daily. Center tablet metoclopram 2017-0 Yes 10mg Q.26889956 Take [address] [facility] gadiel HCl 7-20 [id number] by mouth 3 [facility] (REGLAN) 10 15:20: [...] l 59 Center hydrALAZINE 2017-0 Yes 100mg Q.65805323 Take [address] [facility] (APRESOLINE 7-20 [id number] mg by L hosea ) 100 MG 15:20: 3D mouth 3 Medica l tablet 59 (three) Center times daily. magnesium 2017-0 Yes 400mg QD Take [address] [facility] [address] oxide 7-20 mg by [facility] (MAG-OX) 15:20: mouth Medical 400 mg 59 daily. Center tablet metoclopram 2017-0 Yes 10mg Q.19786008 Take [address] [facility] gadiel HCl 7-20 [id number] by mouth 3 [facility] (REGLAN) 10 15:20: [...] l 59 Center hydrALAZINE 2017-0 Yes 100mg Q.05332084 Take [address] [facility] [address] (APRESOLINE 7-20 [id number] mg by L ukes ) 100 MG 15:20: 3D mouth 3 Medica l tablet 59 (three) Center times daily. magnesium 2017-0 Yes 400mg QD Take [address] [facility] [address] oxide 7-20 mg by [facility] (MAG-OX) 15:20: mouth Medical 400 mg 59 daily. Center tablet metoclopram 2017-0 Yes 10mg Q.71009020 Take [address] [facility] gadiel HCl 7-20 [id number] by mouth 3 [facility] (REGLAN) 10 15:20: [...] l 59 Center hydrALAZINE 2017-0 Yes 100mg Q.67526516 Take [address] [facility] [address] (APRESOLINE 7-20 [id number] mg by L ukes ) 100 MG 15:20: 3D mouth 3 Medica l tablet 59 (three) Center times daily. magnesium 2017-0 Yes 400mg QD Take [address] [facility] [address] oxide 7-20 mg by [facility] (MAG-OX) 15:20: mouth Medical 400 mg 59 daily. Center tablet metoclopram 2017-0 Yes 10mg Q.91519326 Take [address] [facility] gadiel HCl 7-20 [id number] by mouth 3 [facility] (REGLAN) 10 15:20: 3D (three) Med ical MG tablet 59 times Center daily. meclizine 2017-0 Yes 12.5mg Take 12.[address] (ANTIVERT) 7-20 mg by [facility] 25 MG 15:20: mouth 3 Medical tablet 59 (three) Center times daily as needed. divalproex 2017-0 Yes depression 500mg QD Take [address] [facility] (DEPAKOTE) 7-20 associated mg by Apti kes 500 MG EC 15:20: with mouth [...] l 59 Center hydrALAZINE 2017-0 Yes 100mg Q.00870244 Take [address] [facility] [address] (APRESOLINE 7-20 [id number] mg by L ukes ) 100 MG 15:20: 3D mouth 3 Medica l tablet 59 (three) Center times daily. magnesium 2017-0 Yes 400mg QD Take [address] [facility] [address] oxide 7-20 mg by [facility] (MAG-OX) 15:20: mouth Medical 400 mg 59 daily. Center tablet metoclopram 2017-0 Yes 10mg Q.34333650 Take [address] [facility] gadiel HCl 7-20 [id number] by mouth 3 [facility] (REGLAN) 10 15:20: [...] l 59 Center hydrALAZINE 2017-0 Yes 100mg Q.02168929 Take [address] [facility] [address] (APRESOLINE 7-20 [id number] mg by L ukes ) 100 MG 15:20: 3D mouth 3 Medica l tablet 59 (three) Center times daily. magnesium 2017-0 Yes 400mg QD Take [address] [facility] [address] oxide 7-20 mg by [facility] (MAG-OX) 15:20: mouth Medical 400 mg 59 daily. Center tablet metoclopram 2017-0 Yes 10mg Q.09140255 Take [address] [facility] gadiel HCl 7-20 [id number] by mouth 3 [facility] (REGLAN) 10 15:20: [...] l 59 Center hydrALAZINE 2017-0 Yes 100mg Q.69649360 Take [address] [facility] [address] (APRESOLINE 7-20 [id number] mg by L ukes ) 100 MG 15:20: 3D mouth 3 Medica l tablet 59 (three) Center times daily. magnesium 2017-0 Yes 400mg QD Take [address] [facility] [address] oxide 7-20 mg by [facility] (MAG-OX) 15:20: mouth Medical 400 mg 59 daily. Center tablet metoclopram 2017-0 Yes 10mg Q.44553881 Take [address] [facility] gadiel HCl 7-20 [id number] by mouth 3 [facility] (REGLAN) 10 15:20: [...] l 59 Center hydrALAZINE 2017-0 Yes 100mg Q.82138185 Take [address] [facility] [address] (APRESOLINE 7-20 [id number] mg by L ukes ) 100 MG 15:20: 3D mouth 3 Medica l tablet 59 (three) Center times daily. magnesium 2017-0 Yes 400mg QD Take [address] [facility] [address] oxide 7-20 mg by [facility] (MAG-OX) 15:20: mouth Medical 400 mg 59 daily. Center tablet metoclopram 2017-0 Yes 10mg Q.62103763 Take [address] [facility] gadiel HCl 7-20 [id number] by mouth 3 [facility] (REGLAN) 10 15:20: [...] l 59 Center hydrALAZINE 2017-0 Yes 100mg Q.23763510 Take [address] [facility] [address] (APRESOLINE 7-20 [id number] mg by L ukes ) 100 MG 15:20: 3D mouth 3 Medica l tablet 59 (three) Center times daily. magnesium 2017- Yes 400mg QD Take [address] [address] oxide 7-20 mg by [facility] (MAG-OX) 15:20: mouth Medical 400 mg 59 daily. Center tablet metoclopram 2017- Yes 10mg Q.62137868 Take [address] [facility] gadiel HCl 7-20 [id number] by mouth 3 [facility] (REGLAN) 10 15:20: [...] tablet 59 bipolar daily. Center disorder ondansetron 2017 Yes 4mg Take [address] (ZOFRAN) 4 7-20 by mouth [facility] MG tablet 15:20: every 6 Medic al 59 (six) Center hours as needed for Nausea. insulin 2017 Yes 5U QD Inject [address] [facility] [address] glargine 7-20 Units [facility] (LANTUS) 00:00: subcutaneo Med ical 100 unit/mL 00 usly every Ce nter injection morning Use as directed . insulin 2017 Yes 5U QD Inject [address] [facility] [...] Vin 00 30 tab, 0 Refill(s), Pharmacy: [facility] Furosemide Yes 40 mg = 1 Me moria 40 MG Oral 2-09 tab, PO, l Tablet 15:07: Daily, # [place] 00 30 tab, 0 Refill(s), Pharmacy: [facility] Bumex 2016-0 No 0.5 mg, Memoria 2- Route: PO, l 15:00: Drug form: [place] 00 TAB, Daily, Dosing Weight 92.273, kg, Start date: 07/30/16 9:00:00 ASSEMBLING FABRICATOR, Duration: 30 day, Stop date: 08/28/16 9:00:00 ASSEMBLING FABRICATOR Bumex No 0.5 mg, Memoria 07-30 Route: PO, l 15:00: Drug form: [place] 00 TAB, Daily, Dosing Weight 92.273, kg, Start date: 07/30/16 9:00:00 ASSEMBLING FABRICATOR, Duration: 30 day, Stop date: 08/28/16 9:00:00 ASSEMBLING FABRICATOR Lasix No Notes: Memoria 2-08 (Same as: l 20:05: Lasix) October cause GI upset. Give with food or milk. Lasix No Notes: Memoria 2-08 (Same as: l 20:05: Lasix) October cause GI upset. Give with food or milk. Hydralazine No Notes: Mendoza janice 2-08 (Same as: l 06:05: Apresoline ) Push over 5 minutes Hydralazine No Notes: Mendoza janice 2-08 (Same as: l 06:05: Apresoline ) Push over 5 minutes sodium No 1,000 mL, Memori a chloride 205 Rate: 125 l 0.9% 1000 18:26: ml/hr, Jake n ml INJ 00 Infuse 1,000 mL over: 8 hr, Route: IV, Dosing Weight 92.273 kg, Total Volume: 1,000, Start date: 07/26/16 12:26:00 ASSEMBLING FABRICATOR, Duration: 30 day, Stop date: 08/25/16 12:25:00 ASSEMBLING FABRICATOR sodium 2017-0 No 1,000 mL, Memori a chloride 2-05 Rate: 125 l 0.9% 1000 18:26: ml/hr, Jake n ml INJ 00 Infuse 1,000 mL over: 8 hr, Route: IV, Dosing Weight 92.273 kg, Total Volume: 1,000, Start date: 07/26/16 12:26:00 ASSEMBLING FABRICATOR, Duration: 30 day, Stop date: 08/25/16 12:25:00 ASSEMBLING FABRICATOR Sodium 2017-0 No 500 mL, Memoria Chloride 2-05 500 ml/hr, l 0.154 13:30: Infuse [place] MEQ/ML 00 Over: 1 Injectable hr, Route: Solution IV, 500, Drug form: INJ, ONCE, Priority: STAT, Dosing Weight 92.273 kg, Start date: 07/26/16 7:30:00 ASSEMBLING FABRICATOR, Duration: 1 doses or times, Stop date: 07/26/16 7:30:00 ASSEMBLING FABRICATOR Sodium 2017-0 No 500 mL, Memoria Chloride 2-05 500 ml/hr, l 0.154 13:30: Infuse Vin MEQ/ML 00 Over: 1 Injectable hr, Route: Solution IV, 500, Drug form: INJ, ONCE, Priority: STAT, Dosing Weight 92.273 kg, Start date: 07/26/16 7:30:00 ASSEMBLING FABRICATOR, Duration: 1 doses or times, Stop date: 07/26/16 7:30:00 ASSEMBLING FABRICATOR Insulin 2017-0 No 60 units) Mendoza janice regular 2-04 WASTE: F/P l 08:39: - Black; E [place] 00 - Municipal Trash Bin Stable for 28 days at room temperatur e Expires in days from ____Date Insulin 2017-0 No 60 units) Mendoza janice regular 2-04 WASTE: F/P l 08:39: - Black; E [place] 00 - Municipal Trash Bin Stable for 28 days at room temperatur e Expires in days from ____Date Insulin, No Notes: Memoria Aspart, 2-04 Roll in l Human 07:31: palms of [place] 00 hands gently; Do not shake vigorously [...] Roll in l Human 03:28: palms of [place] 00 hands gently; Do not shake vigorously . (Same as: NovoLOG) "single patient use only" WASTE: F/P - Black; E - Municipal Trash Bin Stable for 28 days at room temperatur e. Expires in days from ____Date Insulin, No Notes: Memoria Aspart, 2-04 Roll in l Human 03:28: palms of [place] 00 hands gently; Do not shake vigorously . (Same as: NovoLOG) "single patient use only" WASTE: F/P - Black; E - Municipal Trash Bin Stable for 28 days at room temperatur e. Expires in days from ____Date atorvastati No Notes: Mendoza janice n 2-04 (Same as: l 03:00: Lipitor) Vin 00 divalproex No Notes: Memor ia sodium 2-04 (Same as: l 03:00: Depakote Vin 00 ER) Once daily dosing; indicated for migraines. Divalproex sodium extended-r elease tab. Do not chew or crush. "Do Not Crush" atorvastati No Notes: Mendoza janice n 2-04 (Same as: l 03:00: Lipitor) [place] 00 divalproex No Notes: Memor ia sodium [...] Memoria 2-03 (Same as: l 22:00: Lasix) [place] MEDICATION WASTE Product Size: 40 mg Product Wasted: ___ mg Tylenol No Notes: Max Mendoza janice 2-03 acetaminop l 21:52: hen = Vin 00 4000mg/day (4 gm/day). (Same as: Tylenol) Tylenol No Notes: Max Mendoza janice 2-03 acetaminop l 21:52: hen = [place] 4000mg/day (4 gm/day). (Same as: Tylenol) Bupropion No 150 mg, 1 Mem oria 2-03 tab, l 15:00: Route: PO, Vin 00 Drug form: ERTAB, Daily, Dosing Weight 92.273, kg, Start date: 07/24/16 9:00:00 [employer], Duration: 30 day, Stop date: 08/22/16 9:00:00 [employer] 24 HR No Notes: Memoria Divalproex 2-03 [...] Memoria 2-03 (Same as: l 15:00: Lasix) [place] 00 MEDICATION WASTE Product Size: 40 mg Product Wasted: ___ mg Zoloft No Notes: Memoria 2-03 (Same as: l 15:00: Zoloft) Vin 00 Protonix No Notes: Memoria 2-03 Tablet l 15:00: should not be chewed or crushed. (Same as: Protonix) metoprolol No 100 mg, 2 Me moria extended 2-03 tab, l release 15:00: Route: PO, Drug form: ERTAB, Daily, Start date: 07/24/16 9:00:00 [employer], Duration: 30 day, Stop date: 08/22/16 9:00:00 [employer]SEM[employer]ING [employer] Insulin No Notes: Memoria Glargine 2-03 Same [...] oria 2-03 tab, l 15:00: Route: PO, [place] Drug form: ERTAB, Daily, Dosing Weight 92.273, kg, Start date: 07/24/16 9:00:00 [employer]SEM[employer]ING [employer], Duration: 30 day, Stop date: 08/22/16 9:00:00 [employer]SEMBLING F[employer] 24 HR No Notes: Memoria Divalproex 2-03 (Same as: l Sodium 500 15:00: Depakote Her braden MG Extended 00 ER) Release Tablet [Depakote] gabapentin No Notes: Memor ia 300 MG Oral 2-03 (Same as: l Capsule 15:00: Neurontin) Herm naeem Aspirin 81 No Notes: Memor ia MG Chewable 2-03 Take with l Tablet 15:00: food. [place] 00 Lasix No Notes: Memoria 2-03 (Same [...] form: ERTAB, Daily, Start date: 07/24/16 9:00:00 ASSEMBLING FABRICATOR, Duration: 30 day, Stop date: 08/22/16 9:00:00 ASSEMBLING FABRICATOR Insulin No Notes: Memoria Glargine 2-03 Same [...] janice 2-03 (Same as: l 14:50: Zofran) [place] 00 MEDICATION WASTE Product Size: 4 mg Product Wasted: ___ mg Morphine No Notes: Memoria 2-03 (Same l 14:50: as:MORPhin Vin 00 e Sulfate) Ondansetron No Notes: Mendoza janice 2-03 (Same as: l 14:50: Zofran) [place] 00 MEDICATION WASTE Product Size: 4 mg Product Wasted: ___ mg Morphine No Notes: Memoria 2-03 (Same l 14:50: as:MORPhin [place] 00 e Sulfate) Insulin, No Notes: Memoria Aspart, 2-03 Roll in l Human 13:30: palms of [place] 00 hands gently; Do not shake vigorously [...] Memoria 2-03 Same as l 11:28: Dilaudid [place] 00 Insulin, No Notes: Memoria Aspart, 2-03 [...] Blood Glucose Results, Start date: 07/24/16 2:40:00 ASSEMBLING FABRICATOR, Duration: 30 day, Stop date: 08/23/16 2:39:00 ASSEMBLING FABRICATOR Dextrose 2017-0 No 25 gm, 50 Mendoza janice 50% Syringe 2-03 mL, Route: l 08:40: IVP, Drug Vin 00 Form: INJ, Dosing Weight 92.273, kg, PRN, PRN Blood Glucose Results, Start date: 07/24/16 2:40:00 ASSEMBLING FABRICATOR, Duration: 30 day, Stop date: 08/23/16 2:39:00 ASSEMBLING FABRICATOR Insulin, 2016-0 No Notes: Memoria Aspart, 2-03 Roll in l Human 08:40: palms of [place] 00 hands gently; Do not shake vigorously . (Same as: NovoLOG) "single patient use only" WASTE: F/P - Black; E - Municipal Trash Bin Stable for 28 days at room temperatur e. Expires in days from ____Date Glucagon 2017-0 No 1 mg, Memoria 2-03 Route: IM, l 08:40: Drug form: [place] 00 PDR/INJ, PRN, Dosing Weight 92.273, kg, PRN Blood Glucose Results, Start date: 07/24/16 2:40:00 ASSEMBLING FABRICATOR, Duration: 30 day, Stop date: 08/23/16 2:39:00 ASSEMBLING FABRICATOR Dextrose 2017-0 No 25 gm, 50 Mendoza janice 50% Syringe 2-03 mL, Route: l 08:40: IVP, Drug Vin 00 Form: INJ, Dosing Weight 92.273, kg, PRN, PRN Blood Glucose Results, Start date: 07/24/16 2:40:00 ASSEMBLING FABRICATOR, Duration: 30 day, Stop date: 08/23/16 2:39:00 ASSEMBLING FABRICATOR Docusate 2016-0 No Notes: Memoria 2-03 (Same as: l 07:20: Colace) Vin 00 (Do Not Crush) Ondansetron No Notes: Mendoza janice 2-03 (Same as: l 07:20: Zofran) [place] 00 MEDICATION WASTE Product Size: 4 mg Product Wasted: ___ mg Docusate No Notes: Memoria 2-03 (Same as: l 07:20: Colace) [place] (Do Not Crush) Ondansetron No Notes: Mendoza janice 2-03 (Same as: l 07:20: Zofran) [place] 00 MEDICATION WASTE Product Size: 4 mg Product Wasted: ___ mg Lasix No Notes: Memoria 2-03 (Same as: l 06:01: Lasix) Vin 00 MEDICATION WASTE Product Size: 40 mg Product Wasted: ___ mg Lasix No Notes: Memoria 2-03 (Same as: l 06:01: Lasix) [place] 00 MEDICATION WASTE Product Size: 40 mg Product Wasted: ___ mg Aspirin No Notes: Memoria 2-03 Take with l 05:48: food. Vin Aspirin No Notes: Memoria 2-03 Take with l 05:48: food. Prednisone No Notes: Memor ia 2-03 Take with l 05:02: food. Vin 00 Prednisone No Notes: Memor ia 2-03 Take with l 05:02: food. Albuterol No Notes: Memori a 0.833 MG/ML -03 (Same as: / 04:09: Duoneb) [place] Ipratropium 00 [place] 0.167 MG/ML Inhalant Solution [DuoNeb] Albuterol No Notes: Memori a 0.833 MG/ML 2-03 (Same as: l / 04:09: Duoneb) [place] Ipratropium 00 [place] 0.167 MG/ML Inhalant Solution [DuoNeb] Furosemide 2015-06 Yes 80 mg = 2 Me moria 40 MG Oral 2-26 tab, PO, l Tablet 16:34: BID, # 120 Nidia nn 00 tab, 0 Refill(s) atorvastati 2015-06 Yes 40 mg = 1 M emoria n 40 mg 2-26 tab, PO, l oral tablet 16:34: Bedtime, # [place] 00 30 tab, 0 Refill(s) Insulin 2015-06 [...] INHALATION l 0.09 16:34: , PRN, PRN [place] MG/ACTUAT 00 as needed Metered for Dose wheezing, Inhaler use as needed for shortness of breath or wheezing, # 8 gm, 0 Refill(s) Aspirin 81 2015-06 Yes 81 mg = 1 Me moria MG Chewable 2-26 tab, PO, l Tablet 16:34: Daily, # [place] 00 30 tab, 0 Refill(s) Hydroxyzine 2015-06 Yes 50 mg = 1 M emoria Hydrochlori 2-26 cap, PO, l de 50 MG 16:34: TID, X 30 Herm naeem Oral 00 day, # 90 Capsule cap, 0 Refill(s) losartan 25 2015-06 Yes 25 mg = 1 M emoria mg oral 2-26 tab, PO, l tablet 16:34: Daily, # [place] 00 30 tab, 0 Refill(s) Furosemide 2015-06 [...] INHALATION l 0.09 16:34: , PRN, PRN [place] MG/ACTUAT 00 as needed Metered for Dose wheezing, Inhaler use as needed for shortness of breath or wheezing, # 8 gm, 0 Refill(s) Aspirin 81 2015-06 Yes 81 mg = 1 Me moria MG Chewable 2-26 tab, PO, l Tablet 16:34: Daily, # [place] 00 30 tab, 0 Refill(s) Hydroxyzine 2015-06 Yes 50 mg = 1 M emoria Hydrochlori 2-26 cap, PO, l de 50 MG 16:34: TID, X 30 Herm naeem Oral 00 day, # 90 Capsule cap, 0 Refill(s) losartan 25 2015-06 Yes 25 mg = 1 M emoria mg oral 2-26 tab, PO, l tablet 16:34: Daily, # [place] 00 30 tab, 0 Refill(s) Lasix 2015-06 No Notes: Memoria 2-26 (Same as: l 15:00: Lasix) October cause GI upset. Give with food or milk. Lasix 2015-06 No Notes: Memoria 2-26 (Same as: l 15:00: Lasix) Octoberann cause GI upset. Give with food or milk. Magnesium 2015-06 No Notes: Memori a Oxide 2-24 (Same as: l 13:36: Mag-Ox Vin 00 400) Magnesium oxide [id number] g elemental magnesium Dose=____m g magnesium oxide (___mg elemental magnesium) Magnesium 2015-06 No Notes: Memori a Oxide 2-24 (Same as: l 13:36: Mag-Ox Vin 400) Magnesium oxide 000ja=047u g elemental magnesium Dose=____m g magnesium oxide (___mg elemental magnesium) Magnesium 2015-06 No Notes: Memori a Oxide 2-24 (Same as: l 09:47: Mag-Ox Vin 400) Magnesium oxide [id number] g elemental magnesium Dose=____m g magnesium oxide (___mg elemental magnesium) Magnesium 2015-06 No Notes: Memori a Oxide 2-24 (Same as: l 09:47: Mag-Ox Vin 400) Magnesium oxide 342gu=118n g elemental magnesium Dose=____m g magnesium oxide [...] 2-24 (Same as: l tablet 01:08: Apresoline Ndiia 00 ) May interfere w/enteral feedings Take [...] Memoria 2-24 (Same as: l 00:00: Norvasc) [place] 00 Wellbutrin 2015-06 No Notes: Memor ia XL 2-24 (Same as: l 00:00: Wellbutrin [place] 00 XL) "Do Not Crush" Norvasc 2015-06 No Notes: Memoria 2-24 (Same as: l 00:00: Norvasc) [place] 00 Insulin 2015-06 No Notes: Memoria Glargine [...] tab, PO, l tablet 15:35: Daily, 0 [place] 00 Refill(s) pravastatin 2015-06 No 40 mg = 1 M emoria 40 mg oral 2-23 tab, PO, l tablet 15:35: Daily, 0 [place] 00 Refill(s) amLODIPine 2015-06 No 10 mg = 1 Me moria 10 mg oral 2-23 tab, PO, l tablet 15:35: Daily, 0 Vin 00 Refill(s) pravastatin 2015-06 No 40 mg = 1 M emoria 40 mg oral 2-23 tab, PO, l tablet 15:35: Daily, 0 [place] 00 Refill(s) Sertraline 2015-06 Yes 200 mg [...] tab, PO, l Tablet 15:27: Daily, 0 [place] [Zoloft] 00 Refill(s) pantoprazol 2015-06 Yes 40 [...] (Same as: l 03:00: Lipitor) Vin 00 atorvastati 2015-06 No Notes: Mendoza janice n [...] Weight 86.364, kg, Start date: 06/11/16 9:00:00 ASSEMBLING FABRICATOR, Duration: 30 day, Stop date: 07/10/16 9:00:00 ASSEMBLING FABRICATOR Insulin 2015-06 No Notes: Memoria Glargine 2-22 [...] Weight 86.364, kg, Start date: 06/11/16 9:00:00 ASSEMBLING FABRICATOR, Duration: 30 day, Stop date: 07/10/16 9:00:00 ASSEMBLING FABRICATOR Insulin 2015-06 No Notes: Memoria Glargine 2-22 [...] Roll in l Human 12:55: palms of [place] 00 hands gently; Do not shake vigorously . (Same as: NovoLOG) "single patient use only" WASTE: F/P - Black; E - Municipal Trash Bin Stable for 28 days at room temperatur e. Expires in days from ____Date heparin 2015-06 No Notes: Memoria sodium, 2-22 porcine l porcine 06:00: heparin [place] 2500 UNT/ML 00 Injectable Solution heparin 2015-06 No Notes: Memoria sodium, 2-22 porcine l porcine 06:00: heparin [place] 2500 UNT/ML 00 Injectable Solution Albuterol 2015-06 No Notes: Memori a 0.833 MG/ML 2-22 (Same as: l / 03:00: Duoneb) Vin Ipratropium 00 [place] 0.167 MG/ML Inhalant Solution [DuoNeb] gabapentin 2015-06 No 300 mg, Mendoza janice 300 MG Oral 2-22 Route: PO, l Capsule 03:00: Drug form: Herm naeem 00 CAP, Q12H, Dosing Weight 86.364, kg, (CrCl 30 - 59 ml/min), Start date: 06/10/16 21:00:00 ASSEMBLING FABRICATOR, Duration: 30 day, Stop date: 07/10/16 9:00:00 ASSEMBLING FABRICATOR divalproex 2015-06 No Notes: Memor ia sodium 2-22 (Same as: l 03:00: Depakote Vin 00 ER) Once daily dosing; indicated for migraines. Divalproex sodium extended-r elease tab. Do not chew or crush. "Do Not Crush" Losartan 2015-06 No Notes: Memoria 2-22 (Same as: l 03:00: Cozaar) Vin 00 Albuterol 2015-06 No Notes: Memori a 0.833 MG/ML -22 (Same as: l 03:00: Duoneb) [place] Ipratropium 00 [place] 0.167 MG/ML Inhalant Solution [DuoNeb] gabapentin 2015-06 No 300 mg, Mendoza janice 300 MG Oral 2-22 Route: PO, l Capsule 03:00: Drug form: Herm naeem 00 CAP, Q12H, Dosing Weight 86.364, kg, (CrCl 30 - 59 ml/min), Start date: 06/10/16 21:00:00 ASSEMBLING FABRICATOR, Duration: 30 day, Stop date: 07/10/16 9:00:00 ASSEMBLING FABRICATOR divalproex 2015-06 No Notes: Memor ia sodium [...] Syringe 2-22 25 mL, l 00:50: Route: [place] 00 IVP, Drug Form: INJ, Dosing Weight 86.364, kg, PRN, PRN Blood Glucose Results, Start date: 06/10/16 18:50:00 ASSEMBLING FABRICATOR, Duration: 30 day, Stop date: 07/10/16 18:49:00 ASSEMBLING FABRICATOR Glucagon 2015-06 No 1 mg, Memoria 2-22 Route: IM, l 00:50: Drug form: Vin 00 PDR/INJ, PRN, Dosing Weight 86.364, kg, PRN Blood Glucose Results, Start date: 06/10/16 18:50:00 ASSEMBLING FABRICATOR, Duration: 30 day, Stop date: 07/10/16 18:49:00 ASSEMBLING FABRICATOR Insulin, 2015-06 No Notes: Memoria Aspart, 2-22 Roll in l Human 00:50: palms of [place] 00 hands gently; Do not shake vigorously [...] Blood Glucose Results, Start date: 06/10/16 18:50:00 ASSEMBLING FABRICATOR, Duration: 30 day, Stop date: 07/10/16 18:49:00 ASSEMBLING FABRICATOR Glucagon 2015-06 No 1 mg, Memoria 2-22 Route: IM, l 00:50: Drug form: Vin PDR/INJ, PRN, Dosing Weight 86.364, kg, PRN Blood Glucose Results, Start date: 06/10/16 18:50:00 ASSEMBLING FABRICATOR, Duration: 30 day, Stop date: 07/10/16 18:49:00 ASSEMBLING FABRICATOR Hydralazine 2015-06 No Notes: Mendoza janice 2-22 (Same as: l 00:36: Apresoline [place] 00 ) Push over 5 minutes Hydralazine 2015-06 No Notes: Mendoza janice 2-22 (Same as: l 00:36: Apresoline Vin 00 ) Push over 5 minutes Hydralazine 2015-06 No Notes: Mendoza janice 2-22 (Same as: l 00:34: Apresoline Vin 00 ) May interfere w/enteral feedings Take With Food Hydralazine 2015-06 No Notes: Mendoza janice 2-22 (Same as: l 00:34: Apresoline [place] 00 ) May interfere w/enteral feedings Take [...] Weight 86.364, kg, Start date: 06/10/16 18:06:00 ASSEMBLING FABRICATOR, Stop date: 06/10/16 18:06:00 ASSEMBLING FABRICATOR Hydralazine 2015-06 No 10 mg, Mendoza janice 2-22 Route: IV, l 00:06: ONCE, Dosing Weight 86.364, kg, Start date: 06/10/16 18:06:00 ASSEMBLING FABRICATOR, Stop date: 06/10/16 18:06:00 ASSEMBLING FABRICATOR hydrOXYzine 2015-06 No Notes: Mendoza janice pamoate 2-21 (Same as: l 23:00: Vistaril) hydrOXYzine 2015-06 No Notes: Mendoza janice pamoate 2-21 (Same as: l 23:00: Vistaril) Furosemide 2015-06 No 60 mg, Memor ia 2-21 Route: l 22:32: IVP, Drug Vin 00 form: INJ, ONCE, Dosing Weight 86.364, kg, Start date: 06/10/16 16:32:00 ASSEMBLING FABRICATOR, Stop date: 06/10/16 16:32:00 ASSEMBLING FABRICATOR Furosemide 2015-06 No 60 mg, Memor ia 2-21 Route: l 22:32: IVP, Drug [place] 00 form: INJ, ONCE, Dosing Weight 86.364, kg, Start date: 06/10/16 16:32:00 ASSEMBLING FABRICATOR, Stop date: 06/10/16 16:32:00 ASSEMBLING FABRICATOR Lasix 2015-06 No Notes: Memoria 2-21 (Same as: l 17:22: Lasix) [place] 00 MEDICATION WASTE Product Size: 40 mg Product Wasted: _0__ mg Albuterol 2015-06 No Notes: Memori a 0.833 MG/ML - (Same as: 17:22: Duoneb) Vin Ipratropium 00 [place] 0.167 MG/ML Inhalant Solution [DuoNeb] Lasix 2015-06 No Notes: Memoria 2-21 (Same as: l 17:22: Lasix) Vin 00 MEDICATION WASTE Product Size: 40 mg Product Wasted: _0__ mg Albuterol 2015-06 No Notes: Memori a 0.833 MG/ML -21 (Same as: l 17:22: Duoneb) Vin Ipratropium 00 [place] 0.167 MG/ML Inhalant Solution [DuoNeb] Promethazin Yes 25 mg = 1 M emoria e 06-26 supp, AL, l Hydrochlori 14:45: Q6H, Jake gonzalez de 25 MG 00 Nausea & Rectal Vomiting, Suppository # 9 supp, [Phenergan] 0 Refill(s) Promethazin Yes 25 mg = 1 M emoria e 1-06 supp, AL, l Hydrochlori 14:45: Q6H, Jake n de [...] 06-26 Same as: l 11:48: Dilaudid Vin hydrOXYzine Yes 0 Memori a pamoate -06 Refill(s) l 11:18: Vin 00 Dicyclomine Yes 0 Memori a -06 Refill(s) l 11:18: Vin hydrOXYzine Yes 0 Memori a pamoate 06 Refill(s) l 11:18: Vin 00 Dicyclomine Yes 0 Memori a 1-06 [...] a gadiel 1-06 Refill(s) l 11:17: Erythromyci 2015-0 Yes 0 Memori a n [...] 0 Memoria 1-06 Refill(s) l 11:16: Sodium 2015-0 No 2,000 mL, Memori a Chloride 1-06 1,000 l 0.154 10:56: ml/hr, [place] MEQ/ML 00 Infuse Injectable Over: 2 Solution hr, Route: IV, 2,000, Drug form: INJ, ONCE, Priority: STAT, Dosing Weight 75 kg, Start date: 06/26/14 4:56:00, Duration: 1 doses or times, Stop date: 06/26/14 4:56:00 Lorazepam No Notes: Memori a 1- (Same as: l 10:56: Ativan) Sodium No 2,000 mL, Memori a Chloride -06 1,000 l 0.154 10:56: ml/hr, [place] MEQ/ML 00 Infuse Injectable Over: 2 Solution [...] Rate: 125 l 0.9% IV 04:10: ml/hr, [place] 1,000 mL 00 Infuse over: 8 hr, [...] 03/14/12 20:15:00, Stop date: 03/14/12 20:15:00 morphine No Hung Murillo 5 mg, Me moria Sulfate 9-25 Marx Route: l 01:15: IVP, ONCE, Dosing Weight 58.636, kg, Priority: STAT, Start date: 03/14/12 20:15:00, Stop date: 03/14/12 20:15:00 Sodium 2011-0 No Hung Murillo 500 mL, Me moria Chloride 9-24 Marx Rate: 500 l 0.9% 23:45: ml/hr, [place] (Bolus) IV 00 Infuse 500 mL over: 1 hr, Route: IV, kg, Total Volume: 500, Bolus Dose, Priority: STAT, Start date: 03/14/12 18:45:00, Duration: 1 doses or times, Stop date: 03/14/12 19:44:00 Sodium 2011-0 No Hung Murillo 500 mL, Me moria Chloride 9-24 Marx Rate: 500 l 0.9% 23:45: ml/hr, [place] (Bolus) IV 00 Infuse 500 mL over: 1 hr, Route: IV, kg, Total Volume: 500, Bolus Dose, Priority: STAT, Start date: 03/14/12 18:45:00, Duration: 1 doses or times, Stop date: 03/14/12 19:44:00 ondansetron 2011- No Hung Murillo 4 mg, Memoria 9-24 Marx Route: l 22:19: IVP, ONCE, [place] 00 Dosing Weight 58.636, kg, Priority: STAT, Start date: 03/14/12 17:19:00, Stop date: 03/14/12 17:19:00 morphine 2011-0 No Hung Murillo 5 mg, Me moria Sulfate 9-24 Marx Route: l 22:19: IVP, ONCE, [place] 00 Dosing Weight 58.636, kg, Priority: STAT, [...] or times, Stop date: 03/14/12 17:48:00 ondansetron No Hung Murillo 4 mg, Memoria [...] tab, 1, 1, Substituti on Allowed insulin 2011-0 No Blake 10 unit, Mem oria isophane-COORDINATOR [employer] 6-11 Deangelo 0.1 mL, l H 02:00: Brisa Route: Vin 00 SUB-Q, Drug form: INJ, Bedtime, Start date: 11/29/11 21:00:00, Duration: 30 day, Stop date: 12/28/11 21:00:00 Insulin 0 No Blake 8 unit, Mendoza janice regular [...] 2011-0 No Blake 10 unit, Mem oria isophane-[employer] 6-11 Deangelo 0.1 mL, l H 02:00: Route: Vin 00 SUB-Q, Drug form: INJ, Bedtime, Start date: 11/29/11 21:00:00, Duration: 30 day, Stop date: 12/28/11 21:00:00 Insulin 2011-0 No Blake 8 unit, Mendoza janice regular 6-11 Deangelo 0.08 mL, l 02:00: Route: [place] 00 SUB-Q, Drug form: SOLN, Bedtime, Start [...] 11/29/11 20:11:00, Stop date: 11/29/11 20:11:00 amLODipine 2011-0 No Blake 5 mg, 1 [...] 11/29/11 16:32:00, Stop date: 11/29/11 16:32:00 Tylenol 0 No [place] 650 mg, 2 Mem oria 6-10 Omidvar tab, l 19:16: Route: PO, [place] 00 Drug form: TAB, Q4H, PRN Pain, Start date: 11/29/11 14:16:00, Duration: 30 day, Stop date: 12/29/11 14:15:00 Tylenol 2011-0 No [place] 650 mg, 2 Mem oria 6-10 Omidvar tab, l 19:16: Route: PO, [place] 00 Drug form: TAB, Q4H, PRN Pain, Start date: 11/29/11 14:16:00, Duration: 30 day, Stop date: 12/29/11 14:15:00 insulin 2011-0 No Blake 14 unit, Mem oria isophane-[employer] 6-10 Deangelo 0.14 mL, l H 14:00: Brisa Route: [place] SUB-Q, Drug form: INJ, Daily, Start date: 11/29/11 9:00:00, Duration: 30 day, Stop date: 12/28/11 9:00:00 Insulin 2011-0 No Blake 10 unit, Mem oria regular 6-10 Deangelo 0.1 mL, l 14:00: Brisa Route: [place] SUB-Q, Drug form: SOLN, Daily, Start date: 11/29/11 9:00:00, Duration: 30 day, Stop date: 12/28/11 9:00:00 Effexor XR 2011-0 No Blake 75 mg, 1 Memoria 6-10 Deangelo cap, l 14:00: Brisa Route: PO, Her Drug form: ERCAP, Daily, Start date: 11/29/11 [...] 2011-0 No Blake 14 unit, Mem oria isophane-[employer] 6-10 Deangelo 0.14 mL, l H 14:00: [...] 6-10 Deangelo 0.1 mL, l 06:30: Route: [place] 00 SUB-Q, Drug form: SOLN, TID-Before Meals, [...] Deangelo Route: IM, l 06:30: Drug form: braden 00 PDR/INJ, PRN, PRN [...] l IV 1,000 mL 06:29: Brisa ml/hr, [place] 00 Infuse over: 5 hr, Route: IV, [...] mL, Route: l 02:31: Brayan IVP, Drug [place] 00 form: INJ, ONCE, Priority: STAT, Start date: 11/28/11 21:31:00, Stop date: 11/28/11 21:31:00 NS (Bolus) 2011- No Arif Domenico 1,000 mL, Memoria IV 1,000 mL 11-27 Rate: l 22:48: 1,000 Vin 00 ml/hr, Infuse over: 1 hr, Route: IV, Dosing Weight 57.273 kg, Total Volume: 1,000, Start date: 11/28/11 17:48:00, Duration: 30 day, Stop date: 12/28/11 17:47:00 NS (Bolus) No Arif Domenico 1,000 mL, Memoria IV 1,000 mL 11-27 Rate: l 22:48: 1,000 [place] 00 ml/hr, Infuse over: 1 hr, Route: [...] 1,000 mL 11-27 Rate: l 20:36: 1,000 [place] 00 ml/hr, Infuse over: 1 hr, Route: [...] Hughes-Jason 8 unit, M emoria 100 3-30 [place] SUB-Q, l units/mL 17:47: Dawson Q12H, 2 He rmann injectable 42 Pu vial, solution Substituti on Allowed, SOLN Novolin R 2011- Yes Hughes-Jason 8 unit, M emoria 100 3-30 [place] SUB-Q, l units/mL 17:47: Dawson Q12H, 2 He rmann injectable 42 Pu vial, solution Substituti on Allowed, SOLN Novolin N Yes Hughes-Jason 10 unit, Memoria 100 3-30 [place] SUB-Q, l units/mL 17:46: [place] Bedtime, H ermann subcutaneou 27 Pu 10 ml, s injection Substituti on Allowed, SUSP Novolin N Yes Hughes-Jason 10 unit, Memoria 100 3-30 [place] SUB-Q, l units/mL 17:46: [place] Bedtime, H ermann subcutaneou 27 Pu 10 ml, s injection Substituti on Allowed, SUSP Novolin N Yes Hughes-Jason 14 unit, Memoria 100 3-30 [place] SUB-Q, l units/mL 17:44: Dawson QAM, 1 Her braden subcutaneou 37 Pu vial, s injection Substituti on Allowed, SUSP Novolin N Yes Hughes-Jason 14 unit, Memoria 100 3-30 [place] SUB-Q, l units/mL 17:44: Dawson QAM, 1 Her brdaen subcutaneou 37 Pu vial, s injection Substituti on Allowed, SUSP magnesium No Hughes-Jason 400 mg, 1 Memoria oxide 3-30 [place] tab, l 14:55: Dawson Route: PO, Her braden 00 Pu Drug form: TAB, ONCE, Priority: STAT, Start date: 09/18/11 9:55:00, Stop date: 09/18/11 9:55:00 magnesium 2011-0 No Hughes-Jason 400 mg, 1 Memoria oxide 3-30 [place] tab, l 14:55: Dawson Route: PO, Her braden 00 Pu Drug form: TAB, ONCE, Priority: STAT, Start date: 09/18/11 9:55:00, Stop date: 09/18/11 9:55:00 Insulin 2011-0 No Hughes-Jason 8 unit, Mem oria regular 3-30 [place] 0.08 mL, l 14:22: Dawson Route: Vin 00 Pu SUB-Q, Drug form: SOLN, ONCE, Priority: STAT, Start date: 09/18/11 9:22:00, Stop date: 09/18/11 9:22:00 Insulin 2012-0 No Hughes-Jason 8 unit, Mem oria regular 3-30 [place] 0.08 mL, l 14:22: Dawson Route: Vin 00 Pu SUB-Q, Drug form: SOLN, ONCE, Priority: STAT, Start date: 09/18/11 9:22:00, Stop date: 09/18/11 9:22:00 Lactated 2012-0 No Hughes-Jason 1,000 mL, Memoria Ringers 3-30 [place] Rate: l (Bolus) IV 14:16: Dawson 1,000 He rmann 1,000 mL 00 Pu ml/hr, Infuse over: 1 hr, Route: IV, Total Volume: 1,000, Bolus Dose, Priority: STAT, Start date: 09/18/11 9:16:00, Duration: 1 doses or times, Stop date: 09/18/11 10:15:00 Lactated 2012-0 No Hughes-Jason 1,000 mL, Memoria Ringers 3-30 [place] Rate: l (Bolus) IV 14:16: Dawson 1,000 He rmann 1,000 mL 00 Pu ml/hr, Infuse over: 1 hr, Route: IV, Total Volume: 1,000, Bolus Dose, Priority: STAT, Start date: 09/18/11 9:16:00, Duration: 1 doses or times, Stop date: 09/18/11 10:15:00 Sodium 2012-0 No Hughes-Jason 1,000 mL, Me moria Chloride 3-30 [place] Rate: l 0.9% 14:06: Dawson 1,000 [place] (Bolus) IV 00 Pu ml/hr, 1000 mL Infuse over: 1 hr, Route: IV, kg, Total Volume: 1,000, Bolus Dose, Priority: STAT, Start date: 09/18/11 9:06:00, Duration: 1 doses or times, Stop date: 09/18/11 10:05:00 Sodium 2012-0 No Hughes-Jason 1,000 mL, Me moria Chloride 3-30 [place] Rate: l 0.9% 14:06: Dawson 1,000 [place] (Bolus) IV 00 Pu ml/hr, 1000 mL Infuse over: 1 hr, Route: IV, kg, Total Volume: 1,000, Bolus Dose, Priority: STAT, Start date: 09/18/11 9:06:00, Duration: 1 doses or times, Stop date: 09/18/11 10:05:00 sulfamethox 2012-0 Yes Substituti Memoria azole 3-30 on Allowed l 14:04: [place] 58 sulfamethox 2012-0 Yes Substituti Memoria azole 3-30 on Allowed l 14:04: [place] 58 Sodium 2012-0 No Hughes-Jason 1,000 mL, Me moria Chloride 3-30 [place] Rate: l 0.9% 13:56: Dawson 1,000 Vin (Bolus) IV 00 Pu ml/hr, 1000 mL Infuse over: 1 hr, Route: IV, kg, Total Volume: 1,000, Bolus Dose, Priority: STAT, Start date: 09/18/11 8:56:00, Duration: 1 doses or times, Stop date: 09/18/11 9:55:00 Sodium 2012-0 No Hughes-Jason 1,000 mL, Me moria Chloride 3-30 [place] Rate: l 0.9% 13:56: Dawson 1,000 Vin [...] 3-21 Anabelle cap, l 21:00: Route: PO, [place] 00 Drug form: CAP, Q8H, Start date: 09/09/11 16:00:00, Duration: 30 day, Stop date: 10/09/11 8:00:00 Colace 100 2011-0 Yes Luna 100 mg, 1 Memoria mg oral 3-21 Amelia cap, PO, l capsule 18:47: Zeeshan BID, 60 Her braden 19 cap, Substituti on Allowed, CAP Colace 100 Yes Luna 100 mg, 1 Memoria mg oral 3-21 Amelia cap, PO, l capsule 18:47: Zeeshan BID, 60 Her braden 19 cap, Substituti on Allowed, CAP clindamycin Yes Luna 300 mg, 2 Memoria 150 mg oral 3-21 Amelia cap, PO, l capsule 18:46: [place] Q8H, 30 Her braden 55 cap, Substituti on Allowed, CAP clindamycin Yes Luna 300 mg, 2 Memoria 150 mg oral 3-21 Amelia cap, PO, l capsule 18:46: [place] Q8H, 30 Her braden 55 cap, Substituti on Allowed, CAP [place] Yes Luna 1 tab, PO, Memoria 10/325 oral 3-21 Amelia Q4H, PRN, l tablet 18:46: Zeeshan 30 tab, Herm naeem 36 Pain, Substituti on Allowed, Maintenanc e, TAB [place] Yes Luna 1 tab, PO, Memoria 10/325 oral 3-21 Amelia Q4H, PRN, l tablet 18:46: Zeeshan 30 tab, Herm naeem 36 Pain, Substituti on Allowed, Maintenanc e, TAB [place] No Hollie Donavan 1 tab, Mendoza janice 10/325 oral 3-21 Mahi Route: PO, l tablet 09:00: Drug Form: Nidia nn 00 TAB, Q4H, Start date: 09/09/11 4:00:00, Duration: 30 day, Stop date: 10/09/11 0:00:00 [place] 0 No Hollie Donavan 1 tab, Mendoza [...] day, Stop date: 10/07/11 9:00:00 Colace 100 2012-0 No [place] 100 [...] Memoria 3-19 Josefina mL, Route: l 14:19: [place] IVP, Drug Jake n 00 form: INJ, PRN, PRN Benzodiaze pine Reversal, Initial dose, Start date: 09/07/11 9:19:00, Duration: 1 day, Stop date: 09/08/11 9:18:00 naloxone 2011-0 No Gayle 0.04 mg, Me moria 3-19 Josefina 0.1 mL, l 14:19: [place] Route: Vin 00 IVP, Drug form: INJ, [...] Gayle 15 mL, M emoria en-hydrocod 3-19 Joseifna Route: PO, l one 325 14:19: [place] Drug Form: He rmann mg-10 mg/15 00 SOLN, Q4H, mL oral PRN Pain solution Score 4-6, Start date: 09/07/11 9:19:00, Duration: 1 day, Stop date: 09/08/11 8:00:00 flumazenil No Gayle 0.2 mg, 2 Memoria 3-19 Josefina mL, Route: l 14:19: [place] IVP, Drug Jake n 00 form: INJ, PRN, PRN Benzodiaze pine Reversal, Initial dose, Start date: 09/07/11 9:19:00, Duration: 1 day, Stop date: 09/08/11 9:18:00 naloxone No Gayle 0.04 mg, Me moria 3-19 Josefina 0.1 mL, l 14:19: [place] Route: Burket 00 IVP, Drug form: INJ, Q2MIN, PRN Narcotic Reversal, Start date: 09/07/11 9:19:00, Duration: 8 doses or times, Stop date: Limited # of times ondansetron No Gayle 4 mg, 2 Memoria 3-19 Josefina mL, Route: l 14:19: [place] IVP, Drug Jake n 00 form: INJ, ONCE, PRN Nausea & Vomiting, Start date: 09/07/11 9:19:00 hydromorpho 2011- No Gayle 0.5 mg, Memoria ne 09-06 Josefina 0.25 mL, l 14:19: [place] Route: Vin 00 IVP, Drug form: INJ, Q5Min, PRN Pain Score 4-6, Start date: 09/07/11 9:19:00, Duration: 5 doses or times, Stop date: Limited # of times acetaminoph 2011- No Gayle 15 mL, M emoria en-hydrocod [...] 30 day, Stop date: 10/07/11 9:05:00 Lactated 2011-0 No Bismark 1,000 mL, Me moria Ringers IV 09-06 Omidvar Rate: 125 l 1,000 mL 14:06: ml/hr, Vin 00 Infuse over: 8 hr, Route: IV, Dosing Weight 68.182 kg, Total Volume: 1,000, Start date: 09/07/11 9:06:00, Duration: 30 day, Stop date: 10/07/11 9:05:00 clindamycin 2011-0 No Maximo R 600 mg, Memoria - Arias Route: l 13:31: IVPB, Burket 00 ONCE, Start date: 09/07/11 8:31:00, Stop date: 09/07/11 8:31:00 clindamycin 2011-0 No Maximo R 600 mg, Memoria - Arias Route: l 13:31: IVPB, Burket 00 ONCE, Start date: 09/07/11 8:31:00, Stop [...] Duration: 30 day, Stop date: 10/04/11 18:10:00 Hotchkiss 2012-0 No Mahammad 1 tab, Memori a 10/325 oral 3-16 Simeon Route: PO, l tablet 17:00: Dze Drug Form: Tyrel rmann 00 TAB, Q4H, Start date: 09/04/11 12:00:00, Duration: 30 day, Stop date: 10/04/11 8:00:00 Hotchkiss 2012-0 No Mahammad 1 tab, Memori a [...] 10cc/hr, l - site 1 14:50: Route: Burket 400 mL 00 NERVE BLOCK, Start date: 09/04/11 9:50:00 400 mL, Duration: 30 day, Stop date: 10/04/11 9:49:00 naloxone 2011-0 No Rosalino 0.04 mg, Me moria 3-16 Kavon 0.1 mL, l 14:50: Route: Burket IVP, Drug form: INJ, Q2MIN, PRN Narcotic [...] 10cc/hr, l - site 1 14:50: Route: Burket 400 mL 00 NERVE BLOCK, Start date: 09/04/11 9:50:00 400 mL, Duration: 30 day, Stop date: 10/04/11 9:49:00 naloxone No Rosalino 0.04 mg, Me moria 3-16 Kavon 0.1 mL, l 14:50: Route: Vin 00 IVP, Drug form: INJ, Q2MIN, PRN Narcotic Reversal, Start date: 09/04/11 9:50:00, Duration: 30 day, Stop date: 10/04/11 9:49:00 Hotchkiss No Bismark 1 tab, Memoria 10/325 oral 3-16 Omidvar Route: PO, l tablet 14:49: Drug Form: Nidia nn 00 TAB, Q4H, PRN Pain, Start date: 09/04/11 9:49:00, Stop date: 10/04/11 9:48:00 Hotchkiss 0 No Bismark 1 tab, Memoria 10/325 [...] Beck 0.1 mL, l 13:37: Hayden Route: Burket IVP, Drug form: INJ, Q2MIN, PRN Narcotic Reversal, Start date: 09/04/11 8:37:00, Duration: 8 doses or times, Stop date: Limited # of times meperidine 0 No Hollie 12.5 mg, Me moria 3-16 Beck 0.5 mL, l 13:37: Hayden Route: Burket 00 IVP, Drug form: INJ, Q30Min, PRN [...] Stop date: Limited # of times ondansetron 2011-0 No Hollie 4 mg, 2 [...] Bismark 40 mEq, 2 M emoria chloride -15 Omidvar tab, l 13:39: Route: PO, Burket 00 Drug form: ERTAB, ONCE, Start date: 09/03/11 8:39:00, Stop date: 09/03/11 8:39:00 Hotchkiss 5/325 2011-0 No Rosalino 1 tab, M emoria oral tablet -15 Kavon Route: PO, l 05:00: Drug Form: Burket 00 TAB, Q4H, Start date: 09/03/11 0:00:00, Duration: 30 day, Stop date: 10/02/11 20:00:00 Hotchkiss 5/325 2011-0 No Rosalino 1 tab, M emoria oral tablet - Kavon Route: PO, l 05:00: Drug Form: Burket 00 TAB, Q4H, Start date: 09/03/11 0:00:00, Duration: 30 day, Stop date: 10/02/11 20:00:00 Geodon 2011-0 No Eber L 120 mg, 3 Memoria 3-15 Anabelle cap, l 02:00: Route: PO, Burket 00 Drug form: CAP, Bedtime, Start date: [...] Duration: 30 day, Stop date: 10/02/11 9:00:00 Hotchkiss 5/325 2011-0 No Rosalino 1 tab, M emoria oral tablet -14 Kavon Route: PO, l 16:25: Drug Form: Burket 00 TAB, Q4H, PRN Pain, Start date: 09/02/11 11:25:00, Duration: 30 day, Stop date: 10/02/11 11:24:00 [place]chkiss 5/325 2011-0 No Rosalino 1 tab, M emoria oral tablet -14 Kavon Route: PO, l 16:25: Drug Form: Vin 00 TAB, Q4H, PRN Pain, Start date: 09/02/11 11:25:00, Duration: 30 day, Stop date: 10/02/11 11:24:00 magnesium 2011-0 No Bismark 4 gm, 50 Me moria sulfate -14 Omidvar mL, Route: l 16:15: IVPB, Drug Burket form: INJ, ONCE, Start date: 09/02/11 11:15:00, Stop date: 09/02/11 11:15:00 magnesium 2011-0 No Bismark 4 gm, 50 Me moria sulfate 3-14 Omidvar mL, Route: l 16:15: IVPB, Drug form: INJ, ONCE, Start date: 09/02/11 11:15:00, Stop date: 09/02/11 11:15:00 Lovenox 2011-0 No Missael 40 mg, 0.4 Mem oria 3-14 Movva mL, Route: l 14:00: SUB-Q, Burket 00 Drug form: INJ, Daily, Start date: 09/02/11 9:00:00, Duration: 30 day, Stop date: 10/01/11 9:00:00 vancomycin 2011-0 No Eber L 1 gm, Memoria 3-14 Anabelle Route: l 14:00: IVPB, Drug form: INJ, [id number], Start date: 09/02/11 9:00:00, Duration: 30 day, Stop date: 10/01/11 21:00:00 Lovenox 2011-0 No Missael 40 mg, 0.4 Mem oria 3-14 Movva mL, Route: l 14:00: SUB-Q, Burket 00 Drug form: INJ, Daily, Start date: 09/02/11 9:00:00, Duration: 30 day, Stop date: 10/01/11 9:00:00 vancomycin 2011-0 No Eber L 1 gm, Memoria 3-14 Anabelle Route: l 14:00: IVPB, Drug form: INJ, [id number], Start date: 09/02/11 9:00:00, Duration: 30 day, Stop date: 10/01/11 21:00:00 clindamycin 2011-0 No Eber L 600 mg, 4 Memoria (SCIP) 3-14 Anabelle mL, Route: l 10:00: IVPB, Vin 00 [id number], Start date: 09/02/11 5:00:00, Duration: 3 doses or times, Stop date: 09/02/11 21:00:00 clindamycin 2011-0 No Eber L 600 [...] Brandon mL, Route: l 04:00: Connally IVPB, Burket 00 [id number], Start date: 09/01/11 23:00:00, Duration: 3 doses or times, Stop date: 09/02/11 15:00:00 insulin 2011-0 No Bismark 15 unit, Mendoza janice isophane[employer] 3-14 Omidvar 0.15 mL, l H 02:00: Route: Vin 00 SUB-Q, Drug form: INJ, Q12H, Start date: 09/01/11 21:00:00, Stop date: 10/01/11 9:00:00 insulin 2011-0 No Bismark 15 unit, Mendoza janice isophane[employer] 3-14 Omidvar 0.15 mL, l H 02:00: Route: Burket 00 SUB-Q, Drug form: INJ, Q12H, Start date: 09/01/11 21:00:00, Stop date: 10/01/11 9:00:00 labetalol 0 No Mariaelena-Corea 5 mg, Me moria 3-14 Barbra Route: l 01:07: Feliciano IVP, Burket 00 Q5Min, PRN Elevated BP, Start date: 09/01/11 20:07:00, Duration: 5 doses or times, Stop date: Limited # of times hydrALAZINE 2011-0 No Mariaelena-Corea 5 mg, Memoria 3-14 Barbra Route: l 01:07: Feliciano IVP, Vin 00 Q5Min, PRN Elevated BP, Start date: 09/01/11 20:07:00, Duration: 4 doses or times, Stop date: Limited # of times hydromorpho No Mariaelena-Corea 0.5 mg, Memoria ne 3-14 Barbra Route: l 01:07: Feliciano IVP, Burket 00 Q5Min, PRN Pain Score 4-6, Start date: 09/01/11 20:07:00, Duration: 5 doses or times, Stop date: Limited # of times naloxone No Mariaelena-Corea 0.04 mg, Memoria 3-14 Barbra Route: l 01:07: Feliciano IVP, Burket 00 Q2MIN, PRN Narcotic Reversal, Start date: [...] 3-14 Barbra Route: l 01:07: Feliciano IVP, Burket 00 Q5Min, PRN Elevated BP, Start date: [...] 3-14 Barbra Route: l 01:07: Feliciano IVP, Burket 00 Q5Min, PRN Pain Score 4-6, Start date: 09/01/11 20:07:00, Duration: 5 doses or times, Stop date: Limited # of times naloxone No Mariaelena-Corea 0.04 mg, Memoria 3-14 Barbra Route: l 01:07: Fleiciano IVP, Vin 00 Q2MIN, PRN Narcotic Reversal, Start date: 09/01/11 20:07:00, Duration: 8 doses or times, Stop date: Limited # of times flumazenil No Mariaelena-Corea 0.2 mg, Memoria 3-14 Barbra Route: l 01:07: Feliciano IVP, PRN, Burket 00 PRN Benzodiaze pine Reversal, Initial dose, Start date: 09/01/11 20:07:00, Duration: 30 day, Stop date: 10/01/11 20:06:00 ondansetron No Mariaelena-Corea 4 mg, Memoria 3-14 Barbra Route: l 01:07: Feliciano IVP, ONCE, Vin 00 PRN Nausea & Vomiting, Start date: 09/01/11 20:07:00 vancomycin No Mele 1 gm, Mem oria 3-14 Gauvain Route: l 01:00: IVPB, Drug form: INJ, [id number], Start date: 09/01/11 20:00:00, Duration: 30 day, Stop date: 10/01/11 8:00:00 vancomycin No Mele 1 gm, Mem oria 3-14 Gauvain Route: l 01:00: IVPB, Drug form: INJ, [id number], Start date: 09/01/11 20:00:00, Duration: 30 day, Stop date: 10/01/11 8:00:00 Lactated 2011- No Charbel A 1,000 mL, Memoria Ringers IV 09-01 Wong Rate: 125 l 1,000 mL 00:55: ml/hr, Burket 00 Infuse over: 8 hr, Route: IV, Dosing Weight 68.2 kg, Total Volume: 1,000, Start date: 09/01/11 19:55:00, Duration: 30 day, Stop date: 10/01/11 19:54:00 Lactated 2011-0 No Charbel A 1,000 mL, Memoria Ringers IV 3-14 Wong Rate: 125 l 1,000 mL 00:55: ml/hr, Burket Infuse over: 8 hr, Route: IV, Dosing Weight 68.2 kg, Total Volume: 1,000, Start date: 09/01/11 19:55:00, Duration: 30 day, Stop date: 10/01/11 19:54:00 vancomycin 2011-0 No Missael 1 gm, Memor ia 3-14 Movva Route: l 00:00: IVPB, Drug form: INJ, [id number], Start date: 09/01/11 19:00:00, Duration: 30 day, Stop date: 10/01/11 7:00:00 vancomycin 2011-0 No Missael 1 gm, Memor ia 3-14 Movva Route: l 00:00: IVPB, Drug form: INJ, [id number], Start date: 09/01/11 19:00:00, Duration: 30 day, Stop date: 10/01/11 7:00:00 insulin 2011-0 No Missael 6 unit, Memori a aspart 3-13 Movva 0.06 mL, l 23:23: Route: Burket 00 SUB-Q, Drug form: SOLN, TID-Before Meals, [...] Movva mL, Route: l 23:23: IVP, Drug Burket 00 Form: INJ, PRN, PRN Blood Glucose Results, Start date: 09/01/11 18:23:00, Duration: 30 day, Stop date: 10/01/11 18:22:00 insulin 2011-0 No Missael 6 unit, Memori a aspart 3-13 Movva 0.06 mL, l 23:23: Route: Burket 00 SUB-Q, Drug form: SOLN, TID-Before Meals, [...] Beni mL, Route: l 21:14: IVP, Drug Burket 00 form: INJ, Q4H, PRN Severe Pain, Start date: 09/01/11 16:14:00, Stop date: 10/01/11 16:13:00 morphine 2012-0 No Daja Shannan 2 mg, 1 M emoria Sulfate 3-13 Beni mL, Route: l 21:14: IVP, Drug Vin 00 form: INJ, Q4H, PRN Severe Pain, Start date: 09/01/11 16:14:00, Stop date: 10/01/11 16:13:00 Lactated 2011-0 No Cesar 1,000 mL, Me moria Ringers IV 3-13 Manuel Kaplan Rate: 100 l 1,000 mL 19:03: ml/hr, Burket Infuse over: 10 hr, Route: IV, Dosing Weight 68.182 kg, Total Volume: 1,000, Start date: 09/01/11 14:03:00, Duration: 30 day, Stop date: 10/01/11 14:02:00 Lactated 2012-0 No Cesar 1,000 mL, Me moria Ringers IV 3-13 Manuel Kaplan Rate: 100 l 1,000 mL 19:03: ml/hr, Burket 00 Infuse over: 10 hr, Route: IV, [...] Chloride 3-13 Madden Rate: l 0.9% 14:53: [facility] 1,000 Burket (Bolus) IV 00 ml/hr, 1,000 mL Infuse over: 1 hr, Route: IV, Dosing Weight 68.18 kg, Total Volume: 1,000, Bolus Dose, Priority: STAT, Start date: 09/01/11 9:53:00, Duration: 1 doses or times, Stop date: 09/01/11 10:52:00 Sodium 2011-0 No Enid 1,000 mL, Memori a Chloride 3-13 Madden Rate: l 0.9% 14:53: [facility] 1,000 Burket (Bolus) IV 00 ml/hr, 1,000 mL Infuse [...] 09/01/11 8:28:00, Stop date: 09/01/11 8:28:00 morphine 2011-0 No Ju 4 mg, 1 [...] 3-13 Cruzito Rate: l 0.9% 10:41: 1,000 Burket (Bolus) IV 00 ml/hr, 1000 mL Infuse [...] No Bee L 4 mg, Memoria 3-13 [place] Route: l 09:06: IVP, Drug Vin 00 form: INJ, ONCE, Priority: STAT, Start date: 09/01/11 4:06:00, Stop date: 09/01/11 4:06:00 morphine 2011-0 No Bee L 4 mg, Mem oria Sulfate 3-13 Cruzito Route: l 09:06: IVP, ONCE, Vin 00 Priority: STAT, Start date: 09/01/11 4:06:00, Stop date: 09/01/11 4:06:00 ondansetron 2011- No Bee L 4 mg, Memoria 08-31 [place] Route: l 09:06: IVP, Drug Burket 00 form: INJ, ONCE, Priority: STAT, Start date: 09/01/11 4:06:00, Stop date: 09/01/11 4:06:00 morphine 2011-0 No Bee L 4 mg, Mem oria Sulfate 08-31 Cruzito Route: l 09:06: IVP, ONCE, Vin 00 Priority: STAT, Start date: 09/01/11 4:06:00, Stop date: 09/01/11 4:06:00 Sodium 2011-0 No Bee L 1,000 mL, M emoria Chloride 08-31 Cruz[place] Rate: l 0.9% 08:42: 1,000 Burket (Bolus) IV 00 ml/hr, 1000 mL Infuse over: 1 hr, Route: IV, Dosing Weight 68.182 kg, Total Volume: 1,000, Bolus Dose, Priority: STAT, Start date: 09/01/11 3:42:00, Duration: 1 doses or times, Stop date: 09/01/11 4:41:00 Sodium 2011-0 No Bee L 1,000 mL, M emoria Chloride 08-31 Cruz[place] Rate: l 0.9% 08:42: 1,000 Burket (Bolus) IV 00 ml/hr, 1000 mL Infuse over: 1 hr, Route: IV, Dosing Weight 68.182 kg, Total Volume: 1,000, Bolus Dose, Priority: STAT, Start date: 09/01/11 3:42:00, Duration: 1 doses or times, Stop date: 09/01/11 4:41:00 Insulin 2011-0 No Bee L 8 unit, Me moria regular - [place] 0.08 mL, l 08:30: Route: Vin 00 IVP, Drug form: SOLN, ONCE, Priority: STAT, Start date: 09/01/11 3:30:00, Stop date: 09/01/11 3:30:00 Insulin 2011-0 No Bee L 8 unit, Me moria regular - [place] 0.08 mL, l 08:30: Route: Burket 00 IVP, Drug form: SOLN, ONCE, Priority: STAT, Start date: 09/01/11 3:30:00, Stop date: 09/01/11 3:30:00 Sodium 2011-0 No Bee L 1,000 mL, M emoria Chloride 08-31 [place] Rate: l 0.9% 07:29: 1,000 Burket (Bolus) IV 00 ml/hr, 1,000 mL Infuse over: 1 hr, Route: IV, Dosing Weight 68.182 kg, Total Volume: 1,000, Bolus Dose, Priority: STAT, Start date: 09/01/11 2:29:00, Duration: 1 doses or times, Stop date: 09/01/11 3:28:00 Sodium 2011-0 No Bee L 1,000 mL, M emoria Chloride 08-31 [place] Rate: l 0.9% 07:29: 1,000 Vin (Bolus) IV 00 ml/hr, 1,000 mL Infuse over: 1 hr, Route: IV, Dosing Weight 68.182 kg, Total Volume: 1,000, Bolus Dose, Priority: STAT, Start date: 09/01/11 2:29:00, Duration: 1 doses or times, Stop date: 09/01/11 3:28:00 potassium 2011-0 No Brooks Noam 40 mEq, 2 Memoria chloride 3-04 Akmal tab, l 15:00: Route: PO, Burket 00 Drug form: ERTAB, BID, Start date: 08/23/11 9:00:00, Duration: 2 doses or times, Stop date: 08/23/11 17:00:00 potassium 2011-0 No Brooks Noam 40 mEq, [...] 3, 3, Substituti on Allowed, TAB amLODipine Yes Brooks Noam 5 mg, 1 [...] Akmal SUB-Q, l units/mL 14:42: BID, 3 Burket subcutaneou 04 vial, 3, s injection 3, Substituti on Allowed, SUSP Novolin N Yes Brooks Noam 18 Units, Memoria 100 3-04 Akmal SUB-Q, l units/mL 14:42: BID, 3 Vin subcutaneou 04 vial, 3, s injection 3, Substituti on Allowed, SUSP insulin Yes Brooks Noam 5 Units, Memoria regular 3-04 Akmal SUB-Q, l human 14:40: TID, 30 Burket recombinant 10 vial, 3, 100 3, units/mL Substituti injectable on solution Allowed, before breakfast lunch and dinner, SOLNbefore breakfast lunch and dinner insulin Yes Brooks Noam 5 Units, Memoria [...] Stop date: 08/23/11 10:00:00 potassium 2011-0 No Brooks Noam 20 mEq, Memoria chloride 3-04 Akmal 100 mL, l 14:00: Route: Burket 00 IVPB, Drug form: INJ, Q2H, Start date: 08/23/11 8:00:00, Duration: 2 doses or times, Stop date: 08/23/11 10:00:00 calcium 2011-0 No Brooks Noam 1 gm, Mem oria chloride 3-04 Akmal Route: l 13:28: IVPB, Burket 00 ONCE, Priority: STAT, Start date: 08/23/11 7:28:00, Stop date: 08/23/11 7:28:00 calcium 2011-0 No Brooks Noam 1 gm, Mem oria chloride 3-04 Akmal Route: l 13:28: IVPB, Vin 00 ONCE, Priority: STAT, Start date: 08/23/11 7:28:00, Stop date: 08/23/11 7:28:00 potassium 2011-0 No Brooks Noam 40 mEq, Memoria chloride 3-04 Akmal Route: IV, l 12:29: ONCE, Burket 00 Start date: 08/23/11 6:29:00, Stop date: 08/23/11 6:29:00 potassium 2012-0 No Brooks Noam 40 mEq, Memoria chloride [...] Stop date: 08/23/11 6:27:00 potassium 2012-0 No Brooks Noam 60 mEq, 3 Memoria chloride 20 3-04 Akmal tab, l mEq oral 12:27: Route: PO, Her braden tablet, 00 Drug form: extended ERTAB, release ONCE, Start date: 08/23/11 6:27:00, Stop date: 08/23/11 6:27:00 magnesium 2012-0 No Brooks Noam 2 gm, 50 Memoria sulfate 3-04 Akmal mL, Route: l 12:26: IVPB, Drug Burket 00 form: INJ, ONCE, Total dose = 2 gm, Start date: 08/23/11 6:26:00, Duration: 1 doses or times, Stop date: 08/23/11 6:26:00 magnesium 2011-0 No Brooks Noam 2 gm, [...] Rodriguez 10 mL, l 16:25: Ahmed Route: Burket 00 IVPB, ONCE, Start date: 08/22/11 10:25:00, Stop date: 08/22/11 10:25:00 potassium 2011-0 No Brooks Noam 40 mEq, 2 Memoria chloride 20 3-03 Akmal tab, l mEq oral 15:00: Route: PO, Her braden tablet, 00 Drug form: extended ERTAB, release Daily, Start date: 08/22/11 9:00:00, Duration: 30 day, Stop date: 08/22/11 12:00:00 potassium 2012-0 No Brooks Noam 40 mEq, 2 Memoria chloride 20 3-03 Akmal tab, l mEq oral 15:00: Route: PO, Her braden tablet, 00 Drug form: extended ERTAB, release Daily, Start date: 08/22/11 9:00:00, Duration: 30 day, Stop date: 08/22/11 12:00:00 magnesium 2012-0 No Brooks Noam 2 gm, 50 Memoria sulfate 3-03 Akmal mL, Route: l 13:26: IVPB, Drug Vin form: INJ, ONCE, Total dose = 2 gm, Start date: 08/22/11 7:26:00, Duration: 1 doses or times, Stop date: 08/22/11 7:26:00 magnesium 2012-0 No Brooks Noam 2 gm, 50 Memoria sulfate 3-03 Akmal mL, Route: l 13:26: IVPB, Drug Vin form: INJ, ONCE, Total [...] Stop date: 08/21/11 9:12:00 lisinopril 2012-0 No Brooks Noam 40 mg, 2 Memoria 3-02 Akmal tab, l 15:00: Route: PO, Drug form: TAB, Daily, Start date: 08/21/11 9:00:00, Stop date: 09/19/11 9:00:00 lisinopril 2012-0 No Brooks Noam 40 mg, 2 Memoria [...] 30 day, Stop date: 09/19/11 14:29:00 Compazine 2011-0 No Bismark 5 mg, 1 Mem oria 3-01 Rodriguez tab, l 20:30: Ahmed Route: PO, Jake n 00 Drug form: TAB, Q6H, PRN Nausea & Vomiting, Start date: 08/20/11 14:30:00, Duration: 30 day, Stop date: 09/19/11 14:29:00 Zofran 2011-0 No Bismark 4 mg, 2 Memori a 3-01 Rodriguez mL, Route: l 17:15: Ahmed IVP, Drug Burket form: INJ, Q8H, PRN Nausea, Start date: 08/20/11 11:15:00, Duration: 30 day, Stop date: 09/19/11 11:14:00 Zofran 2011-0 No Bismark 4 mg, 2 Memori a 3-01 Rodriguez mL, Route: l 17:15: Ahmed IVP, Drug Vin 00 form: INJ, Q8H, PRN Nausea, Start date: 08/20/11 11:15:00, Duration: 30 day, Stop date: 09/19/11 11:14:00 insulin 2011-0 No Yury 10 unit, Mem oria [employer]oph[employer] 3-01 [place] Route: l H 16:00: Rivero SUB-Q, Nidia nn 00 ONCE, Start date: 08/20/11 10:00:00, Stop date: 08/20/11 10:00:00 insulin 2011-0 No Yury 10 unit, Mem oria isophane[employer] 3-01 [place] Route: l H 16:00: Rivero [...] tab, PO, l tablet 15:35: BID, 60 Burket 25 tab, Substituti on Allowed, TAB Geodon [...] 2011-0 No Yury 10 unit, Mem oria isophane[employer] - [place] Route: l H 15:00: Mat SUB-Q, Nidia nn 00 Q12H, Start date: 08/20/11 9:00:00, Duration: 30 day, Stop date: 09/18/11 21:00:00 Geodon 2011-0 No Yury 60 mg, 3 Mendoza janice 3-01 [place] cap, l 15:00: Rivero Route: PO, H ermann 00 Drug form: CAP, BID, Start date: 08/20/11 9:00:00, Duration: 30 day, Stop date: 09/18/11 17:00:00 Effexor XR 2011-0 No Yury 75 mg, 1 Memoria -01 [place] cap, l 15:00: Rivero Route: PO, H erm Drug form: ERCAP, Daily, Start date: 08/20/11 9:00:00, Duration: 30 day, Stop date: 09/18/11 9:00:00 insulin 2011-0 No Yury 10 unit, Mem oria isophane[employer] 3- [place] Route: l H 15:00: Rivero [...] date: 08/20/11 8:30:00 potassium 2011-0 No Yury 15 mmol, 5 [...] 23 Substituti on Allowed Insulin 2011-0 No Brooks Noam 10 unit, Memoria regular - Akmal SUB-Q, l 09:28: BID, Vin 23 Substituti on Allowed insulin 0 No 10 unit, Brandon hussein isophane[employer] 3- SUB-Q, l H 09:26: BID, Vin 18 Substituti on Allowed insulin No 10 unit, Brandon razo-[employer] 08-19 SUB-Q, l H 09:26: BID, Burket 18 Substituti on Allowed NS 1,000 mL No Brooks Noam 1,000 mL, Memoria 3 Akmal Rate: [...] date: 09/19/11 3:05:00 NS 1,000 mL No Brooks Noma 1,000 mL, Memoria 08-19 Akmal Rate: 150 l 09:06: ml/hr, Burket Infuse over: 6.7 hr, Route: IV, Total Volume: 1,000, Start date: 08/20/11 3:06:00, Duration: 30 day, Stop date: 09/19/11 3:05:00 insulin No Yury 3 unit, Mendoza janice aspart -01 [place] 0.03 mL, l 09:06: Rivero Route: [...] 30 day, Stop date: 09/18/11 9:00:00 enoxaparin No Yury 40 mg, 0.4 Memoria 3-01 [place] mL, Route: l 09:00: Rivero SUB-Q, Nidia nn 00 Drug form: INJ, Daily, Priority: Routine, Start date: 08/20/11 3:00:00, Duration: 30 day, Stop date: 09/18/11 9:00:00 insulin 2011- No Yury 18 unit, Mem oria isophane[employer] 3-01 [place] 0.18 mL, l H 08:58: Rivero Route: Nidia nn 00 SUB-Q, Drug form: INJ, Q12H, Start date: 08/20/11 2:58:00, Stop date: 09/18/11 21:00:00 insulin 2011- No Yury 18 unit, Mem oria isophane-[employer] 3-01 [place] 0.18 mL, l H 08:58: [...] 2011-0 No Yury 1 mg, Memor ia 08-19 [place] Route: IM, l 08:48: Rivero Drug form: H ermann 00 PDR/INJ, PRN, PRN Blood Glucose Results, Start date: 08/20/11 2:48:00, Duration: 30 day, Stop date: 09/19/11 3:47:00 Dextrose 2011-0 No Yury 25 gm, 50 M emoria 50% Syringe -01 Gato mL, Route: l 08:48: Rivero IVP, [...] No Hughes-Jason 4 mg, M emoria 08-19 [place] Route: l 07:42: Dawson IVP, Drug Herm naeem 00 Pu form: INJ, ONCE, Priority: STAT, Start date: 08/20/11 1:42:00, Stop date: 08/20/11 1:42:00 ondansetron 2011-0 No Hughes-Jason 4 mg, emoria 08-19 [place] Route: l 07:42: Dawson IVP, Drug Herm naeem 00 Pu form: INJ, ONCE, Priority: STAT, Start date: 08/20/11 1:42:00, Stop date: 08/20/11 1:42:00 GI cocktail 2011-0 No Hughes-Jason 30 ml, Memoria 08-19 [place] Route: PO, l 05:12: Dawson Drug Form: Her braden 00 Pu SUSP, ONCE, STAT, Start date: 08/19/11 23:12:00, Stop date: 08/19/11 23:12:00 GI cocktail 2011-0 No Hughes-Jason 30 ml, Memoria 08-19 [place] Route: PO, l 05:12: Dawson Drug Form: Her braden 00 Pu SUSP, ONCE, STAT, Start date: 08/19/11 23:12:00, Stop date: 08/19/11 23:12:00 ondansetron 2011-0 [facility] [place] Route: PO, l 05:10: Dawson Drug form: Her braden 00 Pu TABDIS, ONCE, Priority: STAT, Start date: 08/19/11 23:10:00, Stop date: 08/19/11 23:10:00 Lactated 2011-0 No Hughes-Jason 1,000 mL, Memoria Ringers 3 [place] Rate: l (Bolus) IV 05:10: Dawson 1,000 He rmann 1000 mL 00 Pu ml/hr, Infuse over: 1 hr, Route: IV, Total Volume: 1,000, Bolus Dose, Priority: STAT, Start date: 08/19/11 23:10:00, Duration: 1 doses or times, Stop date: 08/20/11 0:09:00 ondansetron 2011- No Hughes-Jason 4 mg, M emoria 3 [place] Route: PO, l 05:10: Dawson Drug form: Her braden 00 Pu TABDIS, ONCE, Priority: STAT, Start date: 08/19/11 23:10:00, Stop date: 08/19/11 23:10:00 Lactated 2011-0 No Hughes-Jason 1,000 mL, Memoria Ringers 08-19 [place] Rate: l (Bolus) IV 05:10: 1,000 He rmann 1000 mL 00 Pu ml/hr, Infuse over: 1 hr, Route: IV, Total Volume: 1,000, Bolus Dose, Priority: STAT, Start date: 08/19/11 23:10:00, Duration: 1 doses or times, Stop date: 08/20/11 0:09:00 Insulin 2011-0 No Hughes-Jason 7 unit, Mem oria regular 3- [place] 0.07 mL, l 04:15: Dawson Route: Burket 00 Pu SUB-Q, Drug form: SOLN, ONCE, Priority: STAT, Start date: 08/19/11 22:15:00, Stop date: 08/19/11 22:15:00 Insulin 2011-0 No Hughes-Jason 7 unit, Mem oria regular 3-01 [place] 0.07 mL, l 04:15: [place] Route: Vin 00 Pu SUB-Q, Drug form: SOLN, ONCE, Priority: STAT, Start date: 08/19/11 22:15:00, Stop date: 08/19/11 22:15:00 Geodon 60 2011-0 No Yury 60 mg, 1 M emoria mg oral 2-29 [place] cap, PO, l capsule 23:24: Rivero BID, 180 Vin 43 cap, Substituti on Allowed, CAP Geodon 60 2012-0 No Yury 60 mg, 1 M emoria mg oral 2-29 [place] cap, PO, l capsule 23:24: Rivero BID, 180 Vin 43 cap, Substituti on Allowed, CAP trazodone 2011-0 No 300 mg, 1 Mem oria 300 mg oral 2-29 tab, PO, l tablet 23:23: Bedtime, Burket 58 15 tab, Substituti on Allowed, TAB trazodone 2012-0 No 300 mg, 1 Mem oria 300 mg oral 2-29 tab, PO, l tablet 23:23: Bedtime, Vin 58 15 tab, Substituti on Allowed, TAB Effexor XR 2011-0 Yes Yury 75 mg, 1 Memoria 75 mg oral 2-29 [place] cap, PO, l capsule, 23:22: Rivero Daily, 30 [place] extended 24 cap, release Substituti on Allowed Effexor XR 2011-0 Yes Yury 75 mg, 1 Memoria 75 mg oral 2-29 [place] cap, PO, l capsule, 23:22: Rivero Daily, 30 [place] extended 24 cap, release Substituti on Allowed Lactated 2011-0 No Yury 1,000 mL, M emoria Ringers IV 2- Gato Rate: 250 l 1,000 mL 23:03: [...] No Yury 100 mL, Memor ia Chloride 2- [place] Rate: l 0.9% 22:17: Rivero Titrate, [...] 16:16:00, Replace Every: 24 hr GI cocktail 0 No William 40 mL, [...] 2011-0 No William 8 mg, Mem oria Wong [...] No William 4 mg, Memori a Sulfate 2- Wong Route: l 21:57: Pooja IVP, ONCE, [...] 2020-02-20 [facility]pleted [facility]:00[facility]00 [facility] Influenza Virus 2020-02-20 Completed [facility] Vaccine 00:00:00 [facility] TDAP (ADACEL) VACCINE 2019-07-25 Completed Uni versity of 00:00:00 [facility] Meningococcal B, OMV 2019-07-25 Completed [facility] ersity of 00:00:00 [facility] Meningococcal 2019-07-25 Completed [facility] Polysaccharide 00:00:00 [facility] (groups A, C, Y and Branc h W-135) conjugate vaccine (MCV4P) TDAP (ADACEL) VACCINE 2019-07-25 Completed [facility] versity of 00:00:00 [facility] Meningococcal B, OMV 2019-07-25 Completed [facility] ersity of 00:00:00 [facility] Meningococcal 2019-07-25 Completed [facility] Polysaccharide 00:00:00 [facility] (groups A, C, Y and Branc h W-135) conjugate vaccine (MCV4P) Influenza Virus 2019-02-27 Completed [facility] Vaccine Quad .5 mL IM 00:00:00 [facility] 6+ [place] [facility] Influenza Virus 2019-02-27 Completed [facility] .5 mL IM 00:00:00 [facility]inder [facility] hepatitis B vaccine 2018-04-07 Completed [facility] [place] 00:00:00 hepatitis B vaccine 2018-04-07 Completed [facility] 00:00:00 influenza virus 2018-03-29 Completed [facility] vaccine, inactivated 00:00:00 influenza virus 2018-03-29 Completed [facility] vaccine, inactivated 00:00:00 hepatitis B vaccine 2017-11-26 Completed [facility] 00:00:00 hepatitis B vaccine 2017-11-26 Completed [facility] [place] 00:00:00 influenza virus 2017-10-25 Completed [facility] vaccine, inactivated 00:00:00 pneumococcal 2017-10-25 Completed [facility] braden 23-valent vaccine 00:00:00 influenza virus 2017-10-25 Completed [facility] Vin vaccine, inactivated 00:00:00 pneumococcal 2017-10-25 Completed [facility] braden 23-valent vaccine 00:00:00 Influenza Virus 2017-06-22 Completed [facility] Vaccine Quad IM 3+ 00:00:00 [facility] Influenza Virus 2017-06-22 Completed [facility] Vaccine [facility] IM 3+ 00:00:00 [facility] Influenza Virus 2016-04-02 Completed [facility] Vaccine [facility] IM 3+ 00:00:00 [facility] Influenza Virus 2016-04-02 Completed [facility] Vaccine [facility] IM 3+ 00:00:00 [facility] Influenza Virus 2015-10-28 Completed [facility] Vaccine Quad IM 3+ 00:00:00 [facility] Influenza Virus 2015-10-28 Completed [facility] Vaccine [facility] IM 3+ 00:00:00 [facility] Vital Signs Vital Name Observation Time [...] Healt h BMI 2021-01-03 12:57:00 28.17 kg/m2 [facility] Systolic blood 2020-06-27 16:33:00 171 mm[Hg] [facility] Diastolic blood 2020-06-27 16:33:00 98 mm[Hg] [facility] pressure [facility] Heart rate 2020-06-27 16:33:00 71 /min [facility] Respiratory rate 2020-06-27 16:29:00 19 /min [facility] Body height 2020-06-27 16:29:00 154.9 cm [facility] Body weight 2020-06-27 16:29:00 77.293 kg [facility] BMI 2020-06-27 16:29:00 32.20 kg/m2 [facility] Oxygen saturation in 2020-06-27 16:29:00 99 /min [facility] Arterial blood by [facility] [employer] tawnya Pulse oximetry Branch Systolic blood 2020-06-27 16:33:00 171 mm[Hg] [facility] Diastolic blood 2020-06-27 16:33:00 98 mm[Hg] [facility] pressure [facility] Heart rate 2020-06-27 16:33:00 71 /min [facility] Respiratory rate 2020-06-27 16:29:00 19 /min [facility] Body height 2020-06-27 16:29:00 154.9 cm [facility] Body weight 2020-06-27 16:29:00 77.293 kg [facility] BMI 2020-06-27 16:29:00 32.20 kg/m2 [facility] Oxygen saturation in 2020-06-27 16:29:00 99 /min [facility] Arterial blood by [employer] tawnya Pulse oximetry Branch Height/Length 2021-07-08 11:50:13 154.9 cm Measured Weight Dosing 2021-07-08 11:50:13 85.00 kg Height/Length 2021-07-08 11:47:31 154.9 cm Measured Weight Dosing 2021-07-08 11:47:31 85.00 kg Height/Length 2021-07-08 11:47:20 154.9 cm Measured Weight Dosing 2021-07-08 11:47:20 85.00 kg Systolic blood 2021-07-08 19:43:00 189 mm[Hg] [facility] pressure Diastolic blood 2021-07-08 19:43:00 104 mm[Hg] [facility] pressure Heart rate 2021-07-08 18:56:00 74 /min [facility] Body temperature 2021-07-08 18:56:00 36.39 Cathleen [facility] Body height 2021-07-08 18:56:00 157.5 cm [facility] Body weight 2021-07-08 18:56:00 72.938 kg [facility] BMI 2021-07-08 18:56:00 29.41 kg/m2 [facility] Oxygen saturation in 2021-07-08 18:56:00 100 /min [facility] Arterial blood by Pulse oximetry Respiratory rate 2021-06-18 16:36:00 11 /min [facility] Systolic (mm Hg) 2021-01-29 20:03:00 [facility] [place] Diastolic (mm Hg) 2021-01-29 20:03:00 [facility] Systolic (mm Hg) 2021-01-29 19:40:00 [facility] [place] Diastolic (mm Hg) 2021-01-29 19:40:00 [facility] [place] Systolic (mm Hg) 2021-01-29 18:05:00 [facility] [place] Diastolic (mm Hg) 2021-01-29 18:05:00 [facility] Respitory Rate 2021-01-29 16:55:00 [facility] [place] Temperature Oral (F) 2021-01-29 16:45:00 97.3 F [facility] Respitory Rate 2021-01-29 16:45:00 [facility] Respitory Rate 2021-01-29 16:30:00 [facility] Temperature Oral (F) 2021-01-29 13:10:00 97.6 F [facility] Systolic (mm Hg) 2021-01-27 05:00:00 [facility] [place] Diastolic (mm Hg) 2021-01-27 05:00:00 [facility] Systolic (mm Hg) 2021-01-27 04:00:00 [facility] Diastolic (mm Hg) 2021-01-27 04:00:00 [facility] Systolic (mm Hg) 2021-01-27 03:00:00 [facility] Diastolic (mm Hg) 2021-01-27 03:00:00 [facility] [place] Respitory Rate 2021-01-26 19:00:00 [facility] Respitory Rate 2021-01-26 18:00:00 [facility] [place] Respitory Rate 2021-01-26 17:00:00 [facility] [place] Temperature Oral (F) 2021-01-22 13:00:00 97.6 F [facility] Height 2021-01-21 18:25:00 149.86 cm [facility] Weight 2021-01-21 18:25:00 [facility] BMI Calculated 2021-01-21 18:25:00 [facility] Height 2021-01-21 17:09:00 157.48 cm [facility] Height 2021-01-21 13:09:00 157.48 cm [facility] Weight 2021-01-21 13:09:00 [facility] BMI Calculated 2021-01-21 13:09:00 [facility] Heart Rate 2021-01-21 12:50:00 [facility] Systolic (mm Hg) 2020-12-24 15:43:00 [facility] Diastolic (mm Hg) 2020-12-24 15:43:00 [facility] Heart Rate 2020-12-24 15:43:00 [facility] Height 2020-12-24 15:43:00 154.94 cm [facility] Weight 2020-12-24 15:43:00 [facility] BMI Calculated 2020-12-24 15:43:00 [facility] Systolic (mm Hg) 2016-07-30 14:00:00 [facility] Diastolic (mm Hg) 2016-07-30 14:00:00 [facility] [place] Respitory Rate 2016-07-30 14:00:00 [facility] Heart Rate 2016-07-30 14:00:00 [facility] Temperature Oral (F) 2016-07-30 14:00:00 97.4 F [facility] Systolic (mm Hg) 2016-07-30 10:45:00 [facility] Diastolic (mm Hg) 2016-07-30 10:45:00 [facility] [place] Heart Rate 2016-07-30 10:45:00 [facility] [place] Temperature Oral (F) 2016-07-30 10:45:00 97.2 F [facility] Respitory Rate 2016-07-30 10:45:00 [facility] Heart Rate 2016-07-30 06:35:00 [facility] Temperature Oral (F) 2016-07-30 06:35:00 97.0 F [facility] Respitory Rate 2016-07-30 06:35:00 [facility] [place] Systolic (mm Hg) 2016-07-30 06:35:00 [facility] Diastolic (mm Hg) 2016-07-30 06:35:00 [facility] [place] Weight 2016-07-24 02:13:00 [facility] BMI Calculated 2016-07-24 02:13:00 [facility] Height 2016-07-24 02:13:00 160.02 cm [facility] Respitory Rate 2016-06-15 15:00:00 [facility] [place] Systolic (mm Hg) 2016-06-15 15:00:00 [facility] [place] Diastolic (mm Hg) 2016-06-15 15:00:00 [facility] Respitory Rate 2016-06-15 14:00:00 [facility] [place] Systolic (mm Hg) 2016-06-15 14:00:00 [facility] Diastolic (mm Hg) 2016-06-15 14:00:00 [facility] [place] Respitory Rate 2016-06-15 13:29:00 [facility] [place] Systolic (mm Hg) 2016-06-15 13:29:00 [facility] [place] Diastolic (mm Hg) 2016-06-15 13:29:00 [facility] Temperature Oral (F) 2016-06-14 10:56:00 97.1 F [facility] Temperature Oral (F) 2016-06-14 06:55:00 97.1 F [facility] Temperature Oral (F) 2016-06-12 10:00:00 96.8 F [facility] Weight 2016-06-11 04:25:00 [facility] Height 2016-06-11 04:25:00 160.02 cm [facility] BMI Calculated 2016-06-11 04:25:00 [facility] Heart Rate 2016-06-11 02:04:00 [facility] Heart Rate 2016-06-11 00:00:00 [facility] Heart Rate 2016-06-10 20:30:00 [facility] Weight 2016-06-10 16:04:00 [facility] BMI Calculated 2016-06-10 16:04:00 [facility] Height 2016-06-10 16:04:00 160.02 cm [facility] Temperature Oral (F) 2014-06-26 15:12:00 98.0 F [facility] Systolic (mm Hg) 2014-06-26 15:12:00 [facility] Heart Rate 2014-06-26 15:12:00 [facility] Diastolic (mm Hg) 2014-06-26 15:12:00 [facility] [place] Respitory Rate 2014-06-26 15:12:00 [facility] Systolic (mm Hg) 2014-06-26 13:53:00 [facility] Diastolic (mm Hg) 2014-06-26 13:53:00 [facility] [place] Respitory Rate 2014-06-26 13:53:00 [facility] Temperature Oral (F) 2014-06-26 13:53:00 98.0 F [facility] Temperature Oral (F) 2014-06-26 12:37:00 98.2 F [facility] Respitory Rate 2014-06-26 12:37:00 [facility] [place] Systolic (mm Hg) 2014-06-26 12:37:00 [facility] Diastolic (mm Hg) 2014-06-26 12:37:00 [facility] Heart Rate 2014-06-26 09:21:00 [facility] Heart Rate 2014-06-26 06:08:00 [facility] Height 2014-06-26 05:35:00 154.94 cm [facility] Weight 2014-06-26 05:35:00 [facility] BMI Calculated 2014-06-26 05:35:00 [facility] Respitory Rate 2013-04-15 06:10:00 [facility] Diastolic (mm Hg) 2013-04-15 06:10:00 [facility] [place] Heart Rate 2013-04-15 06:10:00 [facility] Systolic (mm Hg) 2013-04-15 06:10:00 [facility] [place] Temperature Oral (F) 2013-04-15 06:10:00 98.7 F [facility] Respitory Rate 2013-04-15 05:37:00 [facility] Diastolic (mm Hg) 2013-04-15 05:37:00 [facility] [place] Systolic (mm Hg) 2013-04-15 05:37:00 [facility] Temperature Oral (F) 2013-04-15 05:37:00 98.2 F [facility] Heart Rate 2013-04-15 05:37:00 [facility] Height 2013-04-15 02:06:00 160.02 cm [facility] Weight 2013-04-15 02:06:00 [facility] Temperature Oral (F) 2013-04-15 02:06:00 98.6 F [facility] Respitory Rate 2013-04-15 02:06:00 [facility] Heart Rate 2013-04-15 02:06:00 [facility] Diastolic (mm Hg) 2013-04-15 02:06:00 [facility] Systolic (mm Hg) 2013-04-15 02:06:00 [facility] Weight 2012-03-14 21:33:00 [facility] [place] Systolic (mm Hg) 2011-12-01 00:33:00 [facility] Respitory Rate 2011-12-01 00:33:00 [facility] Heart Rate 2011-12-01 00:33:00 [facility] Diastolic (mm Hg) 2011-12-01 00:33:00 [facility] [place] Temperature Oral (F) 2011-12-01 00:33:00 99.6 F [facility] Diastolic (mm Hg) 2011-11-30 21:00:00 [facility] [place] Heart Rate 2011-11-30 21:00:00 [facility] Respitory Rate 2011-11-30 21:00:00 [facility] [place] Systolic (mm Hg) 2011-11-30 21:00:00 [facility] [place] Temperature Oral (F) 2011-11-30 21:00:00 99.8 F [facility] Respitory Rate 2011-11-30 16:30:00 [facility] [place] Systolic (mm Hg) 2011-11-30 16:30:00 [facility] [place] Diastolic (mm Hg) 2011-11-30 16:30:00 [facility] Heart Rate 2011-11-30 16:30:00 [facility] Temperature Oral (F) 2011-11-30 16:30:00 99.8 F [facility] Weight 2011-11-29 11:40:00 [facility] Height 2011-11-29 11:40:00 157.48 cm [facility] Weight 2011-11-28 17:16:00 [facility] Weight 2011-09-18 13:30:00 [facility] Height 2011-09-18 13:30:00 154.94 cm [facility] Heart Rate 2011-09-09 13:31:00 [facility] Systolic (mm Hg) 2011-09-09 13:02:00 [facility] Diastolic (mm Hg) 2011-09-09 13:02:00 [facility] Respitory Rate 2011-09-09 13:02:00 [facility] [place] Temperature Oral (F) 2011-09-09 13:02:00 97.5 F [facility] Diastolic (mm Hg) 2011-09-09 08:00:00 [facility] Heart Rate 2011-09-09 08:00:00 [facility] Temperature Oral (F) 2011-09-09 08:00:00 98.6 F [facility] Respitory Rate 2011-09-09 08:00:00 [facility] Systolic (mm Hg) 2011-09-09 08:00:00 [facility] Respitory Rate 2011-09-09 04:55:00 [facility] [place] Diastolic (mm Hg) 2011-09-09 04:55:00 [facility] [place] Systolic (mm Hg) 2011-09-09 04:55:00 [facility] Heart Rate 2011-09-09 04:55:00 [facility] [place] Temperature Oral (F) 2011-09-09 00:55:00 98.7 F [facility] Weight 2011-09-01 19:59:00 [facility] Height 2011-09-01 19:59:00 154.94 cm [facility] Height 2011-09-01 07:01:00 154.94 cm [facility] Weight 2011-09-01 07:01:00 [facility] Respitory Rate 2011-08-23 18:00:00 [facility] Heart Rate 2011-08-23 18:00:00 [facility] [place] Systolic (mm Hg) 2011-08-23 18:00:00 [facility] Diastolic (mm Hg) 2011-08-23 18:00:00 [facility] [place] Temperature Oral (F) 2011-08-23 18:00:00 97.7 F [facility] Heart Rate 2011-08-23 14:24:00 [facility] Temperature Oral (F) 2011-08-23 14:24:00 98.2 F [facility] Diastolic (mm Hg) 2011-08-23 14:24:00 [facility] Systolic (mm Hg) 2011-08-23 14:24:00 [facility] Respitory Rate 2011-08-23 14:24:00 [facility] [place] Systolic (mm Hg) 2011-08-23 11:15:00 [facility] [place] Diastolic (mm Hg) 2011-08-23 11:15:00 [facility] Temperature Oral (F) 2011-08-23 11:00:00 98.3 F [facility] Heart Rate 2011-08-23 11:00:00 [facility] Respitory Rate 2011-08-22 22:00:00 [facility] Height 2011-08-20 09:12:00 154.94 cm [facility] Weight 2011-08-20 09:12:00 [facility] Height 2011-08-19 20:28:00 154.94 cm [facility] Weight 2011-08-19 20:28:00 [facility] Procedures Procedure Date / Time Performing Clinician Source Performed POC GLUCOSE 2021-06-18 17:00:00 Aurelio Schumacher [facility] HEPATITIS B SURFACE 2021-06-18 14:07[facility]TIGEN VANCOMYCIN LEVEL, RANDOM 2021-06-18 13:44:00 Char Viramontes [facility] HC COMPLETE BLD COUNT 2021-06-18 13:44:00 Aurelio Schumacher [facility] W/AUTO DIFF BASIC METABOLIC PANEL 2021-06-18 11:27:00 RenettaFaizapallavi [facility] ESTIMATED GFR 2021-06-18 11:27:00 Faiza Schumacherpallavi [facility] POC GLUCOSE 2021-06-18 08:07:00 Faiza Schumacherad Muslim [facility] HEMODIALYSIS 2021-06-18 06:16:53 KennethBill Muslim Ho [facility] POC GLUCOSE 2021-06-18 01:26:00 Faiza Schumacherad Muslim [facility] POC GLUCOSE 2021-06-17 21:58:00 Faiza Schumacherad Muslim [facility] HEMODIALYSIS 2021-06-17 18:25:45 Kenneth Bill Muslim sp[facility] POC GLUCOSE 2021-06-17 17:36:00 Faiza Schumacherad Muslim Ho [facility] POC GLUCOSE 2021-06-17 13:51:00 Aurelio Schumacher [facility] sp[facility] BASIC METABOLIC PANEL 2021-06-17 11:16:00 [facility] HC COMPLETE BLD COUNT 2021-06-17 11:16:00 [facility] W/AUTO DIFF ESTIMATED GFR 2021-06-17 11:16:00 [facility] POC GLUCOSE 2021-06-17 02:50:00 [facility] CONSULT TO OSTOMY CARE 2021-06-17 00:31:48 [facility] NURSE HC COMPLETE BLD COUNT 2021-06-16 23:31:00 [facility] W/AUTO DIFF BASIC METABOLIC PANEL 2021-06-16 23:31:00 [facility] ESTIMATED GFR 2021-06-16 23:31:00 [facility] POC GLUCOSE 2021-06-16 23:19:00 [facility] OR [place] < 1 HOUR 2021-06-16 22:49:00 Mando Diaz [facility] JoeRuma ANAEROBIC CULTURE 2021-06-16 22:36:00 [facility] FUNGUS [facility] 2021-06-16 22:36:[address] A[facility] 2021-06-16 22:36:00 Mando Diaz [facility] GRAM STAIN 2021-06-16 22:36:00 Mando Diaz [facility] AL AN ELECTIVE 2021-06-16 21:30:00 Jocelyne Zepeda [facility] SUPRAGLOTTIC AIRWAY AORTOGRAPHY, POSSIBLE 2021-06-16 21:17:00 [facility] POC , URINE 2021-06-16 20:46:00 [facility] POTASSIUM LEVEL 2021-06-16 17:28:00 Isabell Dickerson [facility] Larry Romero POC GLUCOSE 2021-06-16 11:39:00 [facility] BASIC METABOLIC PANEL 2021-06-16 10:08:00 [facility] HC COMPLETE BLD COUNT 2021-06-16 10:08:00 [facility] W/AUTO DIFF PROTHROMBIN TIME WITH INR 2021-06-16 10:08:00 [facility] PARTIAL THROMBOPLASTIN 2021-06-16 10:08:00 [facility] TIME (PTT) TYPE AND SCREEN 2021-06-16 10:08:00 [facility] ESTIMATED GFR 2021-06-16 10:08:00 [facility] POC GLUCOSE 2021-06-16 01:59:00 [facility] POC GLUCOSE 2021-06-15 22:58:00 [facility] COVID-19 QUALITATIVE 2021-06-15 19:29:00 [facility] RT-PCR POC GLUCOSE 2021-06-15 17:42:00 [facility] HEMODIALYSIS 2021-06-15 16:17:54 Delfino Akbar [facility] POC GLUCOSE 2021-06-15 15:41:00 [facility] POC GLUCOSE 2021-06-15 13:44:00 [facility] POC GLUCOSE 2021-06-15 13:00:00 [facility] ECG 12-LEAD 2021-06-15 12:48:21 Leni Barker rajeshtal HC COMPLETE BLD COUNT 2021-06-15 11:42:00 [facility] W/AUTO DIFF BASIC METABOLIC PANEL 2021-06-15 11:42:00 [facility] ESTIMATED GFR 2021-06-15 11:42:00 [facility] POC GLUCOSE 2021-06-15 01:31:00 [facility] US DUPLEX ARTERIAL LOWER 2021-06-14 21:55:33 [facility] EXTREMITY RIGHT POC GLUCOSE 2021-06-14 21:51:00 [facility] POC GLUCOSE 2021-06-14 17:36:00 [facility] POC GLUCOSE 2021-06-14 13:30:00 [facility] POC GLUCOSE 2021-06-14 13:29:00 [facility] HC COMPLETE BLD COUNT 2021-06-14 10:13:00 [facility] W/AUTO DIFF BASIC METABOLIC PANEL 2021-06-14 10:13:00 [facility] ESTIMATED GFR 2021-06-14 10:13:00 [facility] POC GLUCOSE 2021-06-14 02:45:00 [facility] POC GLUCOSE 2021-06-13 21:47:00 [facility] POC GLUCOSE 2021-06-13 20:46:00 [facility] CBC WITH PLATELET AND 2021-06-13 16:10:00 Vellanki, [facility] DIFFERENTIAL COMPREHENSIVE METABOLIC 2021-06-13 16:10:00 [facility] PANEL ESTIMATED GFR 2021-06-13 16:10:00 [facility] 2021-06-13 15:26:35 [facility] 2021-06-13 14:30:00 [facility] VANCOMYCIN LEVEL, RANDOM 2021-06-13 10:59:00 Pati Ju[facility] POC GLUCOSE 2021-06-13 10:40:00 [facility] POC GLUCOSE 2021-06-13 02:28:00 [facility] POC GLUCOSE 2021-06-13 00:16:00 [facility] POC GLUCOSE 2021-06-12 23:31:00 [facility] POC GLUCOSE 2021-06-12 23:14:00 [facility] POC GLUCOSE 2021-06-12 18:19:00 [facility] POC GLUCOSE 2021-06-12 14:37:00 [facility] POC GLUCOSE 2021-06-12 14:01:00 [facility] POC GLUCOSE 2021-06-12 03:03:00 Holden Nagel spigabe Ram[facility]rez CT HEAD WO CONTRAST 2021-06-12 00:53:00 Holden Nagel [facility] Ramírez POC GLUCOSE 2021-06-11 18:08:00 Holden Nagel spital Ramírez POC GLUCOSE 2021-06-11 13:39:00 Holden Nagel Ho spital Ramí[place] HEMODIALYSIS 2021-06-11 12:38:38 [facility]SE 2021-06-11 02:01:00 Holden Nagel Ho spital Ramírez POC GLUCOSE 2021-06-10 22:15:00 Holden Nagel spital Ramírez POC GLUCOSE 2021-06-10 17:39:00 Holden Nagel spital Ramírez POC GLUCOSE 2021-06-10 16:05:00 Holden Nagel spital Ramírez TISSUE CULTURE 2021-06-10 15:08:00 Pati, Juwan Whyte spital GRAM STAIN 2021-06-10 15:08:00 Pati, Juwan Whyte spital ANAEROBIC CULTURE 2021-06-10 15:04:00 Pati, [facility] FUNGUS CULTURE 2021-06-10 15:04:00 Pati, Juwan Whyte spital AEROBIC CULTURE 2021-06-10 15:04:00 Pati, Juwan Whyte spital AFB CULTURE 2021-06-10 15:04:00 Pati, Juwan Whyte spital GRAM STAIN 2021-06-10 15:04:00 Pati, Juwan Whyte spital AFB STAIN 2021-06-10 15:04:00 Pati, Juwan Whyte spital AL AN ELECTIVE 2021-06-10 14:26:00 Sofi Roach spital SUPRAGLOTTIC AIRWAY Marquita INCISION AND DRAINAGE, 2021-06-10 14:26:00 , [facility] LOWER EXTREMITY HC COMPLETE BLD COUNT 2021-06-10 10:20:00 , [facility] W/AUTO DIFF BASIC METABOLIC PANEL 2021-06-10 10:20:00 , [facility] PROTHROMBIN TIME WITH INR 2021-06-10 10:20:00 [facility] PARTIAL THROMBOPLASTIN 2021-06-10 10:20:00 [facility] TIME (PTT) TYPE AND SCREEN 2021-06-10 10:20:00 Holden Nagel spital Ramírez ESTIMATED GFR 2021-06-10 10:20:00 Juwan You spital POC GLUCOSE 2021-06-10 03:11:00 Holden Nagel spital Ramírez POC GLUCOSE 2021-06-10 01:30:00 Holden Nagel spital Ramírez POC GLUCOSE 2021-06-09 22:22:00 Holden Nagel Ho spital Ramírez POC GLUCOSE 2021-06-09 13:55:00 Nagel, Holden Ferrara spital Ramírez HEMODIALYSIS 2021-06-09 13:20:01 [facility] VANCOMYCIN LEVEL, RANDOM 2021-06-09 11:46:00 [facility] POC GLUCOSE 2021-06-09 02:06:00 Holden Nagel spital Ramírez POC GLUCOSE 2021-06-08 22:23:00 NagelHolden rodriguez spital Ramírez POC GLUCOSE 2021-06-08 17:53:00 Holden Nagel spital Ramírez HC COMPLETE BLD COUNT 2021-06-08 16:06:00 [facility] W/AUTO DIFF POC GLUCOSE 2021-06-08 13:56:00 Holden Nagel spital Ramírez URINE CULTURE 2021-06-08 03:56:00 Holden Nagel spital Ramríez URINALYSIS SCREEN AND 2021-06-08 03:32:00 [facility] MICROSCOPY, WITH REFLEX TO CULTURE POC GLUCOSE 2021-06-08 01:15:00 Holden Nagel spital Ramírez POC GLUCOSE 2021-06-07 22:07:00 Holden Nagel spital Ramírez POC GLUCOSE 2021-06-07 18:01:00 Holden Nagel spital Ramírez BASIC METABOLIC PANEL 2021-06-07 14:15:00 [facility] ESTIMATED GFR 2021-06-07 14:15:00 NagelHolden rodriguez spital Ramírez POC GLUCOSE 2021-06-07 13:56:00 Holden Nagel spital Ramírez POC GLUCOSE 2021-06-07 02:54:00 Holden Nagel spital Ramírez CT LOWER EXTREMITY W 2021-06-07 01:22:59 [facility] CONTRAST RIGHT POC GLUCOSE 2021-06-06 23:50:00 Nagel, Holden Muslim Ho spital Ramírez POC GLUCOSE 2021-06-06 17:31:00 Nagel, Holden Whyte Ho spital Ramírez HEMODIALYSIS 2021-06-06 15:05:52 Delfino Akbar [facility] POC GLUCOSE 2021-06-06 14:03:00 Holden Nagel spital Ramírez HC COMPLETE BLD COUNT 2021-06-06 10:31:00 [facility] W/AUTO DIFF BASIC METABOLIC PANEL 2021-06-06 10:31:00 [facility] ESTIMATED GFR 2021-06-06 10:31:00 Holden Nagel spital Ramírez POC GLUCOSE 2021-06-06 10:14:00 Holden Nagel spital Ramírez POC GLUCOSE 2021-06-06 06:26:00 Holden Nagel spital Ramírez POC GLUCOSE 2021-06-06 02:41:00 Holden Nagel spital Ramírez POC GLUCOSE 2021-06-05 19:51:00 Holden Nagel spital Ramírez BASIC METABOLIC PANEL 2021-06-05 18:06:00 [facility] HC COMPLETE BLD COUNT 2021-06-05 18:06:00 [facility] W/AUTO DIFF ESTIMATED GFR 2021-06-05 18:06:00 Holden Nagel spital Ramírez POC GLUCOSE 2021-06-05 17:48:00 Holden Nagel spital Ramírez ANAEROBIC CULTURE 2021-06-05 17:10:00 Pati [facility] ANAEROBIC CULTURE 2021-06-05 16:59:00 Pati [facility] FUNGUS CULTURE 2021-06-05 16:59:00 Juwan You spital AEROBIC CULTURE 2021-06-05 16:59:00 Juwan You spital AFB CULTURE 2021-06-05 16:59:00 Juwan You spital FUNGUS SMEAR 2021-06-05 16:59:00 Juwan You spital AFB STAIN 2021-06-05 16:59:00 [facility]IVE 2021-06-05 16:52:08 Chandler Silverman [facility] SUPRAGLOTTIC AIRWAY TISSUE CULTURE 2021-06-05 16:50:00 Juwan You spital GRAM STAIN 2021-06-05 16:50:00 Juwan You rajeshtal DEBRIDEMENT, LOWER 2021-06-05 16:16:00 Pati [facility] EXTREMITY POC GLUCOSE 2021-06-05 13:32:00 Holden Nagel rajeshtal Ramírez TROPONIN T 2021-06-05 10:58:[address] [facility] ospital ABO AND RH CONFIRMATION BY 2021-06-05 10:54:00 [facility] PROTOCOL Vipin BASIC METABOLIC PANEL 2021-06-05 10:53:00 [facility] HC COMPLETE BLD COUNT 2021-06-05 10:53:00 [facility] W/AUTO DIFF ESTIMATED GFR 2021-06-05 10:53:00 Sivan Stewart [facility] PROTHROMBIN TIME WITH INR 2021-06-05 10:52:00 [facility] PARTIAL THROMBOPLASTIN 2021-06-05 10:52:00 [facility] TIME (PTT) HCG QUALITATIVE, SERUM 2021-06-05 10:52:00 Myron Fernandes [facility] SCREEN POC GLUCOSE 2021-06-05 09:40:00 Rachel Brasher spital Vipin BLOOD CULTURE, AEROBIC & 2021-06-05 08:27:00 BrasherRachel guzman [facility] ANAEROBIC [facility] POC GLUCOSE 2021-06-05 07:42:00 Rachel Brasher Ho spital [facility] POC GLUCOSE 2021-06-05 06:57:00 Rachel Brasher [facility] POC GLUCOSE 2021-06-05 06:10:00 Holden Nagel spital Ramírez BLOOD CULTURE, AEROBIC & 2021-06-05 04:31:00 Rachel Brasher [facility] ANAEROBIC [facility] POC GLUCOSE 2021-06-05 04:04:00 Rachel Brasher [facility] POC GLUCOSE 2021-06-05 03:51:00 Rachel Brasher [facility] TYPE AND SCREEN 2021-06-05 03:40:00 Rachel Brasher [facility] POC GLUCOSE 2021-06-05 03:05:00 Rachel Brasher [facility] POC GLUCOSE 2021-06-05 02:23:00 Rachel Brasher [facility] COVID-19 QUALITATIVE 2021-06-05 02:08:00 Sivan Stewart [facility] RT-PCR HC COMPLETE BLD COUNT 2021-06-05 01:24:00 Sivan Stewart [facility] W/AUTO DIFF PROTHROMBIN TIME WITH INR 2021-06-05 01:24:00 [facility] PARTIAL THROMBOPLASTIN 2021-06-05 01:24:00 SamantaSivan [facility] TIME (PTT) COMPREHENSIVE METABOLIC 2021-06-05 01:24:00 SamantaSivan [facility] PANEL CREATINE KINASE, TOTAL 2021-06-05 01:24:00 [facility] B NATRIURETIC PEPTIDE 2021-06-05 01:24:00 Sivan [facility] TROPONIN T 2021-06-05 01:24:00 Char Viramontes [facility] ospital ESTIMATED GFR 2021-06-05 01:24:00 [facility] PRE[facility]INARY 2021-06-05 00:31:28 [facility] ECG 12-LEAD 2021-06-05 00:19:17 Rachel Brasher Ho spital [facility] POC GLUCOSE 2021-05-25 18:04:00 Awe, Marilu Arvin [facility] POC GLUCOSE 2021-05-25 14:00:00 Awe, Marilu Arvin [facility] CBC HEMOGRAM 2021-05-25 10:12:00 Awe, Marilu Arvin [facility] BASIC METABOLIC PANEL 2021-05-25 10:12:00 [facility], [facility]FR 2021-05-25 10:12:00 Awe, [facility] 2021-05-25 02:49:00 Awe, Marilu Arvin [facility] POC GLUCOSE 2021-05-24 23:33:00 Awe, Marilu Arvin [facility] POC GLUCOSE 2021-05-24 17:56:00 Awe, Marilu Arvin [facility] POC GLUCOSE 2021-05-24 13:59:00 Awe, [facility]u [facility]EM[facility] 2021-05-24 10:12:00 Awe, Marilu Arvin [facility] BASIC METABOLIC PANEL 2021-05-24 10:12:00 Awe, [facility] ESTIMATED GFR 2021-05-24 10:12:00 Awe, Marilu Arvin [facility] POC GLUCOSE 2021-05-24 09:59:00 Awe, Marilu Arvin [facility] POC GLUCOSE 2021-05-24 02:26:00 Awe, [facility]SE 2021-05-24 00:03:00 Awe, Marilu Arvin [facility] TRANSFUSE RED BLOOD CELLS 2021-05-23 22:30:00 Char Viramontes [facility] TRANSFUSE RED BLOOD CELLS 2021-05-23 21:30:00 [facility] POC GLUCOSE 2021-05-23 19:03:00 Awe, Marilu Arvin [facility] TYPE AND SCREEN 2021-05-23 14:38:00 [facility] HC COMPLETE BLD COUNT 2021-05-23 14:38:00 Wander [facility] W/AUTO DIFF PREPARE RBC 2021-05-23 14:38:00 [facility] PREPARE PLATELET PHERESIS 2021-05-23 14:38:00 Char Viramontes [facility] POC GLUCOSE 2021-05-23 14:35:00 Awe, [facility] HEMODIALYSIS 2021-05-23 13:42:30 Delfino Akbar [facility] CBC HEMOGRAM 2021-05-23 12:31:00 Awe, [facility] BASIC METABOLIC PANEL 2021-05-23 12:31:00 Awe, [facility] ESTIMATED GFR 2021-05-23 12:31:00 Awe, [facility] POC GLUCOSE 2021-05-23 11:22:00 Awe, [facility] POC GLUCOSE 2021-05-23 03:30:00 [facility] 2021-05-22 23:20:00 Awe, [facility] POC GLUCOSE 2021-05-22 17:20:00 [facility] 2021-05-22 13:27:00 Awe, [facility] BASIC METABOLIC PANEL 2021-05-22 12:31:00 Nikki [facility] Rahel MAGNESIUM LEVEL 2021-05-22 12:31:00 Nikki Haynes ospital Rahel CBC HEMOGRAM 2021-05-22 12:31:00 Nikki Haynes ospital Rahel ESTIMATED GFR 2021-05-22 12:31:00 Nikki Haynes ospital Rahel POC GLUCOSE 2021-05-22 10:54:00 Awe, [facility] POC GLUCOSE 2021-05-22 07:28:00 Awe, [facility] POC GLUCOSE 2021-05-22 01:11:00 Awe, [facility] HEPATITIS B SURFACE 2021-05-21 21:08:00 [facility] ANTIBODY HEMODIALYSIS 2021-05-21 20:57:40 [facility] POC GLUCOSE 2021-05-21 17:57:00 Awe, [facility] POC GLUCOSE 2021-05-21 13:55:00 Awe, [facility] POC GLUCOSE 2021-05-21 10:41:00 Tom Barber ZZCOVID-19 ANTI-SPIKE IGG 2021-05-21 07:43:00 Lattimer MinesClyde [facility] ANTIBODY TITER Esa BASIC METABOLIC PANEL 2021-05-21 07:43:00 [facility] Rahel MAGNESIUM LEVEL 2021-05-21 07:43:00 HaynesNikki graff ospital Rahel CBC HEMOGRAM 2021-05-21 07:43:00 [facility] Ra[facility] ZZCOVID-19 SEROLOGY 2021-05-21 07:43:00 IshanClyde peacock [facility] PATIENT SURVEILLANCE Esa ESTIMATED GFR 2021-05-21 07:43:00 Andre Sofia [place] LACTIC ACID LEVEL 2021-05-21 07:43:00 Leodan Stevenson [facility] POC GLUCOSE 2021-05-21 06:35:00 Tom Barber HC COMPLETE BLD COUNT 2021-05-21 02:49:00 [facility] W/AUTO DIFF BASIC METABOLIC PANEL 2021-05-21 02:49:00 [facility] LACTIC ACID LEVEL 2021-05-21 02:49:00 [facility] OSMOLALITY, SERUM 2021-05-21 02:49:00 [facility] BETA HYDROXYBUTYRATE 2021-05-21 02:49:[address] [facility] PROCALCITONIN 2021-05-21 02:49:00 [facility] ESTIMATED GFR 2021-05-21 02:49:00 [facility] POC GLUCOSE 2021-05-21 02:34:00 Tom Barber spital HC COMPLETE BLD COUNT 2021-05-21 00:28:00 Raysa [facility] W/AUTO DIFF POC GLUCOSE 2021-05-20 23:57:00 Tom Barber spital BASIC METABOLIC PANEL 2021-05-20 23:20:00 [facility] LACTIC ACID LEVEL 2021-05-20 23:20:00 Kimberlyn [facility] ESTIMATED GFR 2021-05-20 23:20:00 Andre Sofia spital [...] RED BLOOD CELLS 2021-05-20 17:21:00 Andre Sofia [facility] [place] TRANSFUSE PLATELET 2021-05-20 15:52:00 [facility]ERESIS BASIC METABOLIC PANEL 2021-05-20 15:25:00 Andre Sofia [facility] [place] ESTIMATED GFR 2021-05-20 15:25:00 Andre Sofia spital [place] POC GLUCOSE 2021-05-20 14:48:00 Tom Barber spital HEMODIALYSIS 2021-05-20 11:31:20 [facility] POC GLUCOSE 2021-05-20 10:44:00 Tom Barber spital HEPATITIS B SURFACE 2021-05-20 08:49:00 [facility] ANTIGEN HEPATITIS B SURFACE AB, 2021-05-20 08:49:00 [facility] QUANTITATIVE HC COMPLETE BLD COUNT 2021-05-20 08:25:00 [facility] W/AUTO DIFF BASIC METABOLIC PANEL 2021-05-20 08:25:00 [facility] MAGNESIUM LEVEL 2021-05-20 08:25:[address] [facility] ospital PHOSPHORUS LEVEL 2021-05-20 08:25:00 [facility] PROTHROMBIN TIME WITH INR 2021-05-20 08:25:00 Graham [facility] ESTIMATED GFR 2021-05-20 08:25:00 Juwan You spital HEMOGLOBIN A1C 2021-05-20 08:25:00 Nikki Haynes ospital Rahel POC GLUCOSE 2021-05-20 06:34:00 Tom Barber spital ARTERIAL BLOOD GAS 2021-05-20 04:36:00 Graham [facility] ECG 12-LEAD 2021-05-20 03:42:28 Leodan Stevenson [facility] Ho spital PROTHROMBIN TIME WITH INR 2021-05-20 02:54:00 [facility] HC COMPLETE BLD COUNT 2021-05-20 02:54:00 Leodan Stevenson [facility] W/AUTO DIFF BASIC METABOLIC PANEL 2021-05-20 02:54:00 Graham [facility] LACTIC ACID LEVEL 2021-05-20 02:54:00 Graham [facility] VENOUS BLOOD GAS 2021-05-20 02:54:00 [facility] ospital ESTIMATED GFR 2021-05-20 02:54:00 [facility] Muslim spital POC GLUCOSE 2021-05-20 02:54:00 Tom Barber spital XR CHEST 1 VW PORTABLE 2021-05-20 02:51:13 [facility] [place] < 1 HOUR 2021-05-20 01:30:15 Juwan You spital TRANSFUSE RED BLOOD CELLS 2021-05-20 00:59:00 Juwan You [facility] AL AN ELECTIVE 2021-05-20 00:53:01 Sukhjinder Medina spital SUPRAGLOTTIC AIRWAY [place] INCISION AND DRAINAGE, 2021-05-20 00:45:00 Pati [facility] HEMATOMA HC COMPLETE BLD COUNT 2021-05-19 22:13:00 [facility] W/AUTO DIFF BASIC METABOLIC PANEL 2021-05-19 22:13:00 [facility] PROTHROMBIN TIME WITH INR 2021-05-19 22:13:00 [facility] PARTIAL THROMBOPLASTIN 2021-05-19 22:13:00 [facility] TIME (PTT) MAGNESIUM LEVEL 2021-05-19 22:13:[address] [facility] ospital ESTIMATED GFR 2021-05-19 22:13:00 Juwan You spital POC GLUCOSE 2021-05-19 22:00:00 Errol Luther [facility] SURGICAL PATHOLOGY REQUEST 2021-05-19 21:47:00 Errol Luther [facility] POC GLUCOSE 2021-05-19 21:17:00 Juwan You spital ACTIVATED CLOTTING TIME 2021-05-19 19:12:00 Tom Barber [facility] AL AN ELECTIVE 2021-05-19 18:11:04 Sukhjinder Medina spital SUPRAGLOTTIC AIRWAY [place] LOWER EXTREMITY 2021-05-19 17:59:00 Juwan You ANGIOGRAM,POSSIBLE ANGIOPLASTY,POSSIBLE STENT XR CHEST 1 VW PORTABLE 2021-05-19 15:47:37 Juwan You [facility] ESTIMATED GFR 2021-05-19 14:34:00 Juwan You spital POC PANEL 2021-05-19 14:34:00 Juwan You spital TYPE AND SCREEN 2021-05-19 14:05:00 Isabell Dickerson marilyn Romero PREPARE RBC 2021-05-19 14:05:[address] [facility] ospital PREPARE FRESH FROZEN 2021-05-19 14:05:00 [facility] PLASMA PREPARE PLATELET PHERESIS 2021-05-19 14:05:00 [facility] BASIC METABOLIC PANEL 2021-05-19 14:00:00 [facility] Romero PROTHROMBIN TIME WITH INR 2021-05-19 14:00:00 Jayla [facility] Larry Romero HC COMPLETE BLD COUNT 2021-05-19 14:00:00 [facility]FF Larry Romero ABO AND RH CONFIRMATION BY 2021-05-19 14:00:00 Pati [facility] PROTOCOL ESTIMATED GFR 2021-05-19 14:00:00 [facility] COVID-19 QUALITATIVE 2021-05-19 12:40:00 [facility] MEDICAL RELEASE/CLEARANCE 2021-05-13 06:01:00 Doctor Unassigned, [facility] FORMS [facility] US DUPLEX ARTERIAL LOWER 2021-05-12 15:21:31 Juwan You [facility] EXTREMITY BILATERAL Emergency department visit 2013-04-15 05:00:00 M yanet Banuelos for the evaluation and management of a patient, which requires these 3 kamraa components within the constraints imposed by the urgency of the patient's clinical condition and/or mental status: A comprehensive history; A comprehensi Injection or Infusion of 2013-04-15 05:00:00 Mem orikatya Banuelos Other Therapeutic or Prophylactic Substance Intravenous infusion, 2013-04-15 05:00:00 Blasori al Vin hydration; each additional hour (List [...] push, single or initial substance/drug Eye procedure [facility] (esophagogastroduodenoscop y) gastric outlet reduction section Shahid Joseph n Tubal ligation [facility] 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 Plan of Care Planned Activity Planned Date Details Comments Source Future Scheduled 2022-06-11 HEPATITIS B VACCINES Met [facility] Test 02:09:30 (1 of 3 - 3-dose series) [code = HEPATITIS B VACCINES (1 of 3 - 3-dose series)] Future Scheduled 2022-06-11 COVID-19 VACCINE (#1) [facility] Test 02:09:30 [code = COVID-19 VACCINE (#1)] Future Scheduled 2022-06-11 Pneumococcal Vaccine: [facility] Test 02:09:30 Pediatrics (0 to 5 Years) and At-Risk Patients (6 to 64 Years) (1 - PCV) [code = Pneumococcal Vaccine: Pediatrics (0 to 5 Years) and At-Risk Patients (6 to 64 Years) (1 - PCV)] Future Scheduled 2022-06-11 Hepatitis C screening [facility] Test 02:09:30 (procedure) [code = [id number]] Future Scheduled 2022-06-11 Screening for [facility] Test 02:09:30 malignant neoplasm of cervix (procedure) [code = 314673658] Future Scheduled 2022-06-11 INFLUENZA VACCINE [facility] Test 02:09:30 [code = INFLUENZA VACCINE] Future Scheduled 2022-06-11 HEPATITIS B VACCINES Met [facility] Test 02:09:30 (1 of 3 - 3-dose series) [code = HEPATITIS B VACCINES (1 of 3 - 3-dose series)] Future Scheduled 2022-06-11 COVID-19 VACCINE (#1) [facility] Test 02:09:30 [code = COVID-19 VACCINE (#1)] Future Scheduled 2022-06-11 Pneumococcal Vaccine: [facility] Test 02:09:30 Pediatrics (0 to 5 Years) and At-Risk Patients (6 to 64 Years) (1 - PCV) [code = Pneumococcal Vaccine: Pediatrics (0 to 5 Years) and At-Risk Patients (6 to 64 Years) (1 - PCV)] Future Scheduled 2022-06-11 Hepatitis C screening [facility] Test 02:09:30 (procedure) [code = [id number]] Future Scheduled 2022-06-11 Screening for [facility] Test 02:09:30 malignant neoplasm of cervix (procedure) [code = 081371181] Future Scheduled 2022-06-11 INFLUENZA VACCINE Method [facility] Test 02:09:30 [code = INFLUENZA VACCINE] Future Scheduled 2022-06-11 HEPATITIS B VACCINES Met [facility] Test 02:09:30 (1 of 3 - 3-dose series) [code = HEPATITIS B VACCINES (1 of 3 - 3-dose series)] Future Scheduled 2022-06-11 COVID-19 VACCINE (#1) [facility] Test 02:09:30 [code = COVID-19 VACCINE (#1)] Future Scheduled 2022-06-11 Pneumococcal Vaccine: [facility] Test 02:09:30 Pediatrics (0 to 5 Years) and At-Risk Patients (6 to 64 Years) (1 - PCV) [code = Pneumococcal Vaccine: Pediatrics (0 to 5 Years) and At-Risk Patients (6 to 64 Years) (1 - PCV)] Future Scheduled 2022-06-11 Hepatitis C screening [facility] Test 02:09:30 (procedure) [code = [id number]] Future Scheduled 2022-06-11 Screening for [facility] Test 02:09:30 malignant neoplasm of cervix (procedure) [code = 524657652] Future Scheduled 2022-06-11 INFLUENZA VACCINE Method [facility] Test 02:09:30 [code = INFLUENZA VACCINE] Future Scheduled 2022-06-11 HEPATITIS B VACCINES Met [facility] Test 02:09:30 (1 of 3 - 3-dose series) [code = HEPATITIS B VACCINES (1 of 3 - 3-dose series)] Future Scheduled 2022-06-11 COVID-19 VACCINE (#1) [facility] Test 02:09:30 [code = COVID-19 VACCINE (#1)] Future Scheduled 2022-06-11 Pneumococcal Vaccine: [facility] Test 02:09:30 Pediatrics (0 to 5 Years) and At-Risk Patients (6 to 64 Years) (1 - PCV) [code = Pneumococcal Vaccine: Pediatrics (0 to 5 Years) and At-Risk Patients (6 to 64 Years) (1 - PCV)] Future Scheduled 2022-06-11 Hepatitis C screening [facility] Test 02:09:30 (procedure) [code = [id number]] Future Scheduled 2022-06-11 Screening for [facility] Test 02:09:30 malignant neoplasm of cervix (procedure) [code = 932614234] Future Scheduled 2022-06-11 INFLUENZA VACCINE Method [facility] Test 02:09:30 [code = INFLUENZA VACCINE] Future Scheduled 2022-06-11 HEPATITIS B VACCINES Met [facility] Test 02:09:30 (1 of 3 - 3-dose series) [code = HEPATITIS B VACCINES (1 of 3 - 3-dose series)] Future Scheduled 2022-06-11 COVID-19 VACCINE (#1) [facility] Test 02:09:30 [code = COVID-19 VACCINE (#1)] Future Scheduled 2022-06-11 Pneumococcal Vaccine: [facility] Test 02:09:30 Pediatrics (0 to 5 Years) and At-Risk Patients (6 to 64 Years) (1 - PCV) [code = Pneumococcal Vaccine: Pediatrics (0 to 5 Years) and At-Risk Patients (6 to 64 Years) (1 - PCV)] Future Scheduled 2022-06-11 Hepatitis C screening [facility] Test 02:09:30 (procedure) [code = [id number]] Future Scheduled 2022-06-11 Screening for [facility] Test 02:09:30 malignant neoplasm of cervix (procedure) [code = 457461432] Future Scheduled 2022-06-11 INFLUENZA VACCINE Method [facility] Test 02:09:30 [code = INFLUENZA VACCINE] Future Scheduled 2022-06-01 HEPATITIS B VACCINES Met [facility] Test 16:17:59 (1 of 3 - 3-dose series) [code = HEPATITIS B VACCINES (1 of 3 - 3-dose series)] Future Scheduled 2022-06-01 COVID-19 VACCINE (#1) [facility] Test 16:17:59 [code = COVID-19 VACCINE (#1)] Future Scheduled 2022-06-01 Pneumococcal Vaccine: [facility] Test 16:17:59 Pediatrics (0 to 5 Years) and At-Risk Patients (6 to 64 Years) (1 - PCV) [code = Pneumococcal Vaccine: Pediatrics (0 to 5 Years) and At-Risk Patients (6 to 64 Years) (1 - PCV)] Future Scheduled 2022-06-01 Hepatitis C screening [facility] Test 16:17:59 (procedure) [code = [id number]] Future Scheduled 2022-06-01 [facility] 16:17:59 malignant neoplasm of cervix (procedure) [code = 443274126] Future Scheduled 2022-06-01 INFLUENZA VACCINE Method [facility] Test 16:17:59 [code = INFLUENZA VACCINE] Future Scheduled 2022-04-25 HEPATITIS B VACCINES Met [facility] Test 12:43:16 (1 of 3 - 3-dose series) [code = HEPATITIS B VACCINES (1 of 3 - 3-dose series)] Future Scheduled 2022-04-25 COVID-19 VACCINE (#1) [facility] Test 12:43:16 [code = COVID-19 VACCINE (#1)] Future Scheduled 2022-04-25 Pneumococcal Vaccine: [facility] Test 12:43:16 Pediatrics (0 to 5 Years) and At-Risk Patients (6 to 64 Years) (1 - PCV) [code = Pneumococcal Vaccine: Pediatrics (0 to 5 Years) and At-Risk Patients (6 to 64 Years) (1 - PCV)] Future Scheduled 2022-04-25 Hepatitis C screening [facility] Test 12:43:16 (procedure) [code = 597958571] Future Scheduled 2022-04-25 [facility] Test 12:43:16 malignant neoplasm of cervix (procedure) [code = 894358904] Future Scheduled 2022-04-25 INFLUENZA VACCINE Method [facility] Test 12:43:16 [code = INFLUENZA VACCINE] Future Scheduled 2022-02-27 HEPATITIS B VACCINES Met [facility] Test 05:24:42 (1 of 3 - 3-dose series) [code = HEPATITIS B VACCINES (1 of 3 - 3-dose series)] Future Scheduled 2022-02-27 COVID-19 VACCINE (#1) [facility] Test 05:24:42 [code = COVID-19 VACCINE (#1)] Future Scheduled 2022-02-27 Pneumococcal Vaccine: [facility] Test 05:24:42 Pediatrics (0 to 5 Years) and At-Risk Patients (6 to 64 Years) (1 - PCV) [code = Pneumococcal Vaccine: Pediatrics (0 to 5 Years) and At-Risk Patients (6 to 64 Years) (1 - PCV)] Future Scheduled 2022-02-27 Hepatitis C screening [facility] Test 05:24:42 (procedure) [code = [id number]] Future Scheduled 2022-02-27 Screening for [facility] Test 05:24:42 malignant neoplasm of cervix (procedure) [code = 136541068] Future Scheduled 2022-02-27 INFLUENZA VACCINE [facility] Test 05:24:42 [code = INFLUENZA VACCINE] Future Scheduled 2022-02-27 HEPATITIS B VACCINES Met [facility] Test 05:24:42 (1 of 3 - 3-dose series) [code = HEPATITIS B VACCINES (1 of 3 - 3-dose series)] Future Scheduled 2022-02-27 COVID-19 VACCINE (#1) [facility] Test 05:24:42 [code = COVID-19 VACCINE (#1)] Future Scheduled 2022-02-27 Pneumococcal Vaccine: [facility] Test 05:24:42 Pediatrics (0 to 5 Years) and At-Risk Patients (6 to 64 Years) (1 - PCV) [code = Pneumococcal Vaccine: Pediatrics (0 to 5 Years) and At-Risk Patients (6 to 64 Years) (1 - PCV)] Future Scheduled 2022-02-27 Hepatitis C screening [facility] Test 05:24:42 (procedure) [code = 430866796] Future Scheduled 2022-02-27 [facility] 05:24:42 malignant neoplasm of cervix (procedure) [code = 711384408] Future Scheduled 2022-02-27 INFLUENZA VACCINE [facility] Test 05:24:42 [code = INFLUENZA VACCINE] Future Scheduled 2022-02-27 HEPATITIS B VACCINES Met [facility] Test 05:24:42 (1 of 3 - 3-dose series) [code = HEPATITIS B VACCINES (1 of 3 - 3-dose series)] Future Scheduled 2022-02-27 COVID-19 VACCINE (#1) [facility] Test 05:24:42 [code = COVID-19 VACCINE (#1)] Future Scheduled 2022-02-27 Pneumococcal Vaccine: [facility] Test 05:24:42 Pediatrics (0 to 5 Years) and At-Risk Patients (6 to 64 Years) (1 - PCV) [code = Pneumococcal Vaccine: Pediatrics (0 to 5 Years) and At-Risk Patients (6 to 64 Years) (1 - PCV)] Future Scheduled 2022-02-27 Hepatitis C screening [facility] Test 05:24:42 (procedure) [code = 517747542] Future Scheduled 2022-02-27 Screening for [facility] Test 05:24:42 malignant neoplasm of cervix (procedure) [code = 261166582] Future Scheduled 2022-02-27 INFLUENZA VACCINE Method [facility] Test 05:24:42 [code = INFLUENZA VACCINE] Future Scheduled 2022-02-27 HEPATITIS B VACCINES Met [facility] Test 05:24:42 (1 of 3 - 3-dose series) [code = HEPATITIS B VACCINES (1 of 3 - 3-dose series)] Future Scheduled 2022-02-27 COVID-19 VACCINE (#1) [facility] Test 05:24:42 [code = COVID-19 VACCINE (#1)] Future Scheduled 2022-02-27 Pneumococcal Vaccine: [facility] Test 05:24:42 Pediatrics (0 to 5 Years) and At-Risk Patients (6 to 64 Years) (1 - PCV) [code = Pneumococcal Vaccine: Pediatrics (0 to 5 Years) and At-Risk Patients (6 to 64 Years) (1 - PCV)] Future Scheduled 2022-02-27 Hepatitis C screening [facility] Test 05:24:42 (procedure) [code = 612832791] Future Scheduled 2022-02-27 Screening for [facility] Test 05:24:42 malignant neoplasm of cervix (procedure) [code = 087594567] Future Scheduled 2022-02-27 INFLUENZA VACCINE [facility] Test 05:24:42 [code = INFLUENZA VACCINE] Future Scheduled 2022-02-27 HEPATITIS B VACCINES Met [facility] Test 05:24:42 (1 of 3 - 3-dose series) [code = HEPATITIS B VACCINES (1 of 3 - 3-dose series)] Future Scheduled 2022-02-27 COVID-19 VACCINE (#1) [facility] Test 05:24:42 [code = COVID-19 VACCINE (#1)] Future Scheduled 2022-02-27 Pneumococcal Vaccine: [facility] Test 05:24:42 Pediatrics (0 to 5 Years) and At-Risk Patients (6 to 64 Years) (1 - PCV) [code = Pneumococcal Vaccine: Pediatrics (0 to 5 Years) and At-Risk Patients (6 to 64 Years) (1 - PCV)] Future Scheduled 2022-02-27 Hepatitis C screening [facility] Test 05:24:42 (procedure) [code = 904781445] Future Scheduled 2022-02-27 Screening for [facility] Test 05:24:42 malignant neoplasm of cervix (procedure) [code = 382202943] Future Scheduled 2022-02-27 INFLUENZA VACCINE [facility] Test 05:24:42 [code = INFLUENZA VACCINE] Future Scheduled 2022-02-27 HEPATITIS B VACCINES Met [facility] Test 05:24:42 (1 of 3 - 3-dose series) [code = HEPATITIS B VACCINES (1 of 3 - 3-dose series)] Future Scheduled 2022-02-27 COVID-19 VACCINE (#1) [facility] Test 05:24:42 [code = COVID-19 VACCINE (#1)] Future Scheduled 2022-02-27 Pneumococcal Vaccine: [facility] Test 05:24:42 Pediatrics (0 to 5 Years) and At-Risk Patients (6 to 64 Years) (1 - PCV) [code = Pneumococcal Vaccine: Pediatrics (0 to 5 Years) and At-Risk Patients (6 to 64 Years) (1 - PCV)] Future Scheduled 2022-02-27 Hepatitis C screening [facility] Test 05:24:42 (procedure) [code = 050842416] Future Scheduled 2022-02-27 Screening for [facility] Test 05:24:42 malignant neoplasm of cervix (procedure) [code = 056467618] Future Scheduled 2022-02-27 INFLUENZA VACCINE [facility] Test 05:24:42 [code = INFLUENZA VACCINE] Future Scheduled 2022-02-27 HEPATITIS B VACCINES Met [facility] Test 05:24:42 (1 of 3 - 3-dose series) [code = HEPATITIS B VACCINES (1 of 3 - 3-dose series)] Future Scheduled 2022-02-27 COVID-19 VACCINE (#1) [facility] Test 05:24:42 [code = COVID-19 VACCINE (#1)] Future Scheduled 2022-02-27 Pneumococcal Vaccine: [facility] Test 05:24:42 Pediatrics (0 to 5 Years) and At-Risk Patients (6 to 64 Years) (1 - PCV) [code = Pneumococcal Vaccine: Pediatrics (0 to 5 Years) and At-Risk Patients (6 to 64 Years) (1 - PCV)] Future Scheduled 2022-02-27 Hepatitis C screening [facility] Test 05:24:42 (procedure) [code = 678705435] Future Scheduled 2022-02-27 Screening for [facility] Test 05:24:42 malignant neoplasm of cervix (procedure) [code = 173557826] Future Scheduled 2022-02-27 INFLUENZA VACCINE [facility] Test 05:24:42 [code = INFLUENZA VACCINE] Future Scheduled 2022-02-27 HEPATITIS B VACCINES Met [facility] Test 05:24:42 (1 of 3 - 3-dose series) [code = HEPATITIS B VACCINES (1 of 3 - 3-dose series)] Future Scheduled 2022-02-27 COVID-19 VACCINE (#1) [facility] Test 05:24:42 [code = COVID-19 VACCINE (#1)] Future Scheduled 2022-02-27 Pneumococcal Vaccine: [facility] Test 05:24:42 Pediatrics (0 to 5 Years) and At-Risk Patients (6 to 64 Years) (1 - PCV) [code = Pneumococcal Vaccine: Pediatrics (0 to 5 Years) and At-Risk Patients (6 to 64 Years) (1 - PCV)] Future Scheduled 2022-02-27 Hepatitis C screening [facility] Test 05:24:42 (procedure) [code = 402808449] Future Scheduled 2022-02-27 [facility] 05:24:42 malignant neoplasm of cervix (procedure) [code = 339064182] Future Scheduled 2022-02-27 INFLUENZA VACCINE [facility] Test 05:24:42 [code = INFLUENZA VACCINE] Future Scheduled 2021-07-22 COVID-19 VACCINE (1) [facility] Test 13:11:04 [code = COVID-19 VACCINE (1)] Future Scheduled 2021-07-22 Hepatitis C screening [facility] Test 13:11:04 (procedure) [code = 003939136] Future Scheduled 2021-07-22 [facility] 13:11:04 malignant neoplasm of cervix (procedure) [code = 662137982] Future Scheduled 2021-07-22 INFLUENZA VACCINE [facility] Test 13:11:04 [code = INFLUENZA VACCINE] Encounters Start End Encounter Admission Attending Care Care Encounter Source Date/Time Date/Time Type Type Clinicians Facility Department ID 2022-08-26 Preadmit nullFlavo [id number] Memoria 20:12:59 r [facility] 68 [facility] 2022-08-26 Outpatient nullFlavo [facility] [id number] Memoria 20:12:59 r [facility] 05 l [facility] 2022-08-26 Outpatient nullFlavo [facility] [id number] Memoria 20:12:59 r Medical 06 l [facility] 2022-04-29 Outpatient [facility] [id number] [place] 09:02:27 [id number] [facility] 2022-04-28 Outpatient [facility] [id number] [place] 12:17:07 [id number] [facility] 2021-12-29 Outpatient [facility] [id number] [place] 11:56:31 [id number] [facility] 2021-12-19 Outpatient [facility] [id number] [place] 14:05:12 [id number] [facility] 2021-12-12 Outpatient [facility] [id number] [place] 12:11:07 [id number] [facility] 2021-12-05 Outpatient [facility] [id number] [place] 20:09:51 [id number] [facility] 2021-10-28 Outpatient [facility] [id number] [place] 17:04:22 [id number] [facility] 2021-07-22 Outpatient nullFlavo [facility] [id number] Memoria 00:10:30 r Medical 05 l [facility] 2021-07-22 Preadmit nullFlavo [id number] Memoria 00:10:30 r [facility] 68 l [place] 2021-07-22 Outpatient nullFlavo [facility] [id number] Memoria 00:10:30 r Medical 06 l [facility] 2021-04-22 Emergency [facility] [id number] Univers 02:13:[address] [facility] 2021-04-18 Emergency [facility] [id number] Univers 22:32:[address] [facility] 2021-04-17 Emergency [facility] [id number] Univers 17:46:08 [facility] 2022-04-09 2022-04-09 Outpatient Nodal_J [facility] [id number] 022 Devoted 00:00:00 00:00:00 1020 Medica l Group 2022-01-02 2022-01-02 Outpatient Deshazo_T [facility] [id number] -2021 Devoted 03:37:00 03:37:00 0715 Medica l Group 2021-12-15 2021-12-15 Outpatient [facility] [id number] [place] 08:00:00 08:00:00 RAJFundation 2021-12-02 2021-12-02 Travel 1.2.840.1 1.2.891.757 5107 [id number] Methodi 00:00:00 00:00:[address] 3.430.2.7 0.2.7.3.698 Ho spita .3.812046 084.8 l .8 2021-12-02 2021-12-02 Travel 1.2.840.1 1.2.014.332 0740 090260 Methodi 00:00:00 00:00:[address] 3.430.2.7 0.2.7.3.698 Ho spita .3.955170 084.8 l .8 2021-11-13 2021-11-13 Transcribe Aglieco, 1.2.840.1 [id number] 21 [id number] Methodi 00:00:00 00:00:00 Orders Jose Miguel G. 06082.1.[address] 3.430.2.7 Hospit a .3.605486 l .8 2021-11-13 2021-11-13 Transcribe Patience, 1.2.840.1 [id number] 21 [id number] Methodi 00:00:00 00:00:00 Orders Jose Miguel G. 06967.1.[address] 3.430.2.7 Hospit a .3.339140 l .8 2021-11-05 2021-11-05 Outpatient Deshazo_T [facility]G DMG [id number] -2021 Devoted 12:00:00 12:00:00 0518 Medica l Group 2021-10-29 2021-10-29 Telephone Rosy, 1.2.840.1 [id number] 908 [id number] Methodi 00:00:00 00:00:[address] Mohamed 3.430.2.7 Hospit a .3.715379 l .8 2021-10-29 2021-10-29 Telephone Rosy, 1.2.840.1 [id number] 127 [id number] Methodi 00:00:00 00:00:[address] Mohamed 3.430.2.7 Hospit a .3.161698 l .8 2021-08-20 2021-08-20 Outpatient Deshazo_T DMG G [id number] -2021 Devoted 12:30:00 12:30:00 0302 Medica l Group 2021-07-08 2021-07-08 Office Ann, 1.2.840.1 [id number] 1803 Methodi 13:00:00 14:25:36 Visit Bessie 92299.1.[address] [place] 3.430.2.7 Hosp jo-ann .3.838585 l .8 2021-07-08 2021-07-08 Telephone Anthony, 1.2.840.1 [id number] 2100 [id number] Methodi 00:00:00 00:00:[address] 3.430.2.7 Hospit a .3.191134 l .8 2021-07-08 2021-07-08 Travel 1.2.840.1 1.2.787.835 3575 721606 Methodi 00:00:00 00:00:[address] 3.430.2.7 0.2.7.3.698 Ho spita .3.398581 084.8 l .8 2021-07-03 2021-07-03 CAV Melany 2.16.840. 2.16.840.1. CLAC [id number] Devoted 19:00:00 20:00:00 Vladimir 1.026419. 949981.4.6. 467 Medical 4.6.18409 [id number] 2021-07-03 2021-07-03 Telephone Ann, 1.2.840.1 [id number] 2100 179423 Methodi 00:00:00 00:00:[address] [facility] 3.430.2.7 Hosp jo-ann .3.117124 l .8 2021-06-24 2021-06-24 [facility] [id number] -2021 Devoted 05:31:00 05:31:00 0104 Medica l Group 2021-06-23 2021-06-23 Telephone Anthony, 1.2.840.1 [id number] 2100 [id number] Methodi 00:00:00 00:00:[address] 3.430.2.7 Hospit a .3.861661 l .8 2021-06-04 2021-06-18 [facility] 1.2.840.1 1041 19314 [id number] Methodi 18:20:00 18:13:00 Rachel Sky 01488.1.[address] [facility] 3.430.2.7 Hospita Magaly, Shanda Annin .3.095799 l Aurelio Schumacher .8 2021-06-16 2021-06-16 Anesthesia Yousif, 1.2.840.1 [id number] Methodi 23:59:59 23:59:59 Event Alesia Coelho 44871.1.[address] 3.430.2.7 Hospit a .3.863600 l .8 2021-06-16 2021-06-16 Surgery Joe, 1.2.840.1 [id number] 7450 Methodi 13:30:00 17:45:[address] [facility] 3.430.2.7 Hosp jo-ann .3.374061 l .8 2021-06-16 2021-06-16 Anesthesia Jose Carlos, 1.2.840.1 [id number] 157 [id number] Methodi 15:19:00 17:19:00 Event Veto 18330.1.1 309 s t V. 3.430.2.7 Hospit a .3.135535 l .8 2021-06-10 2021-06-10 Surgery Juwan You 1.2.840.1 [id number] 84777 78743 Methodi 08:00:00 10:30:[address] 3.430.2.7 Hospit a .3.003116 l .8 2021-06-10 2021-06-10 Anesthesia Doc, 1.2.840.1 [id number] 770 [id number] Methodi 08:26:00 09:40:00 Event Sofi 79213.1.[address] Marquita 3.430.2.7 Hosp jo-ann .3.854793 l .8 2021-06-09 2021-06-09 Prep for Robert, 1.2.840.1 [id number] 332 0386580 Methodi 00:00:00 00:00:00 Surgery Gayle 08044.1.[address] 3.430.2.7 Hospit a .3.634252 l .8 2021-06-09 2021-06-09 Prep for Robert, 1.2.840.1 [id number] 481 [id number] Methodi 00:00:00 00:00:00 Surgery Gayle 45527.1.[address] 3.430.2.7 Hospit a .3.046668 l .8 2021-06-05 2021-06-05 Anesthesia Frankie Chowdhury 1.2.840.1 [id number] Methodi 10:16:00 11:41:00 Event Chandler Silverman 22436.1.[address] 3.430.2.7 Hospit a .3.792361 l .8 2021-06-05 2021-06-05 Surgery Juwan You 1.2.840.1 [id number] 71132 96235 Methodi 09:30:00 11:05:[address] 3.430.2.7 Hospit a .3.660902 l .8 2021-06-03 2021-06-03 Prep for Anthony, 1.2.840.1 [id number] 58029 Methodi 00:00:00 00:00:00 Surgery Forrest 78191.1.[address] 3.430.2.7 Hospit a .3.214618 l .8 2021-06-03 2021-06-03 Telephone Ureña, 1.2.840.1 [id number] 883 [id number] Methodi 00:00:00 00:00:00 Cryrichard 76828.1.1 218 s t 3.430.2.7 Hospit a .3.062523 l .8 2021-05-28 2021-05-28 Outpatient Adams_R [facility] DMG [id number] 021 Devoted 05:00:00 05:00:00 1208 Medica l Group 2021-05-27 2021-05-27 Patient Tam, 1.2.840.1 [id number] [id number] Methodi 00:00:00 00:00:00 Outreach Maria M 48169.1.[address] 3.430.2.7 Hospit a .3.250992 l .8 2021-05-27 2021-05-27 Travel 1.2.840.1 1.2.215.964 3000 055256 Methodi 00:00:00 00:00:[address] 3.430.2.7 0.2.7.3.698 Ho spita .3.910600 084.8 l .8 2021-05-27 2021-05-27 Orders Boles, 1.2.840.1 [id number] 2099 [id number] Methodi 00:00:00 00:00:00 Only Anila 08056.1.[address] 3.430.2.7 Hospit a .3.867220 l .8 2021-05-26 2021-05-26 Outpatient Adams_R DMG [facility] [id number] 021 Devoted 03:30:00 03:30:00 1206 Medica l Group 2021-05-26 2021-05-26 Telephone Anthony, 1.2.840.1 [id number] 2099 [id number] Methodi 00:00:00 00:00:[address] 3.430.2.7 Hospit a .3.730299 l .8 2021-05-19 2021-05-25 Hospital PatiTory 1.2.840.1 [id number] 2099 734140 Methodi 06:00:00 15:59:00 Encounter Tom Barber 32266.1.[address] August, Marilu Sheridan 3.430.2.7 Hospita .3.167357 l .8 2021-05-21 2021-05-21 [facility] 699[facility]-6 021 Devoted 03:30:00 03:30:00 1201 Medica l Group 2021-05-19 2021-05-19 Anesthesia Adam, 1.2.840.1 [id number] Methodi 18:45:00 20:31:00 Event Sukhjinder 97463.1.[address] Kendall 3.430.2.7 Hospit a .3.250375 l .8 2021-05-19 2021-05-19 Surgery PatiJuwan 1.2.840.1 [id number] 64276 05990 Methodi 18:50:00 19:55:[address] 3.430.2.7 Hospit a .3.850827 l .8 2021-05-19 2021-05-19 Anesthesia Adam, Sukhjinder Kendall 1.2.840.1 [id number] Methodi 12:00:00 15:14:00 Event Hanane Ledezma 34046.1.[address] 3.430.2.7 Hospit a .3.695491 l .8 2021-05-19 2021-05-19 Surgery Juwan You 1.2.840.1 [id number] 27 Methodi 12:05:00 14:45:[address] 3.430.2.7 Hospit a .3.728856 l .8 2021-05-19 2021-05-19 Travel 1.2.840.1 1.2.944.297 6634 584146 Methodi 00:00:00 00:00:[address] 3.430.2.7 0.2.7.3.698 Ho spita .3.652246 084.8 l .8 2021-05-14 2021-05-14 Telephone Corin, 1.2.840.1 [id number] Methodi 00:00:00 00:00:[address] 3.430.2.7 Hospit a .3.527872 l .8 2021-05-14 2021-05-14 Prep for Anthony, 1.2.840.1 [id number] 26 Methodi 00:00:00 00:00:00 Surgery Forrest 39319.1.[address] 3.430.2.7 Hospit a .3.695318 l .8 2021-05-13 2021-05-13 Orders Doctor JOANNA 1.2.840.114 [id number] Univers 00:00:00 00:00:00 Only Unassigned, BEKA 350.1.13.[address] [facility] 4.2.7.2.686 Baljinder as [phone] [address] 2021-05-12 2021-05-12 Office Juwan You 1.2.840.1 [id number] 71206 Methodi 09:00:00 09:32:[address] 3.430.2.7 Hospit a .3.128002 l .8 2021-05-12 2021-05-12 Outpatient JUWAN YOU [facility] [id number] 5262 [place]vin 00:00:00 00:00:[address] 2021-05-12 2021-05-12 Telephone Anthony, 1.2.840.1 [id number] Methodi 00:00:00 00:00:[address] 3.430.2.7 Hospit a .3.083641 l .8 2021-05-12 2021-05-12 Travel 1.2.840.1 1.2.970.799 5092 180858 Methodi 00:00:00 00:00:[address] 3.430.2.7 0.2.7.3.698 Ho spita .3.386408 084.8 l .8 2021-05-08 2021-05-08 Orders Anthony, 1.2.840.1 [id number] 6016 Methodi 00:00:00 00:00:00 Only Forrest 69018.1.[address] 3.430.2.7 Hospit a .3.537695 l .8 2021-05-08 2021-05-08 Telephone Ramana, 1.2.840.1 [id number] Methodi 00:00:00 00:00:[address] 3.430.2.7 Hospit a .3.163392 l .8 2021-05-05 2021-05-05 Office Juwan You 1.2.840.1 [id number] 54981 Methodi 14:00:00 15:41:[address] 3.430.2.7 Hospit a .3.221558 l .8 2021-05-05 2021-05-05 Travel 1.2.840.1 1.2.686.294 5500 428135 Methodi 00:00:00 00:00:[address] 3.430.2.7 0.2.7.3.698 Ho spita .3.859281 084.8 l .8 2021-05-01 2021-05-01 Telephone Joe, 1.2.840.1 [id number] 2099 736189 Methodi 00:00:00 00:00:[address] [facility] 3.430.2.7 Hosp jo-ann .3.298004 l .8 2021-04-08 2021-04-08 Outpatient Eduin BHAT [facility] [id number] Univers 09:00:00 09:00:00 MONA ity of [facility] 2021-03-24 2021-03-24 Transition Misha Garcia 1.2.840.114 878 94405 Univers 00:00:00 00:00:00 of Care Missy Guzman 350.1.13.10 it y [place].5665[place] [address] [place] 2021-03-19 2021-03-21 [facility] Jimena [place] 1.2.840.1 1007 [id number] Univers 08:24:00 23:08:00 Encounter Eze Dias 86732.1.1 ity of [place] 3.104.2.7 [place] .3.188817 Medica l .8 Branch 2021-03-21 2021-03-21 Outpatient DMG DMG [id number] 021 Devoted 08:01:00 08:01:00 1001 Medica l Group 2021-03-19 2021-03-19 Orders Doctor 1.2.840.7 [id number] 04821 [id number] Univers 00:00:00 00:00:00 Only Unassigned, 05299.1.1 ity of Happy 3.104.2.7 [place] .3.073294 Medica l .8 Branch 2021-03-19 2021-03-19 Travel 1.2.840.1 1.2.932.286 6871 4264 Univers 00:00:00 00:00:00 75746.1.1 350.1.13.10 ity of 3.104.2.7 4[place].3.698 [place] .3.028986 084.8 Medica l .8 Branch 2021-01-21 2021-01-29 Inpatient [facility] 79263 [id number] Memoria 15:50:00 20:14:[address] 2021-01-21 2021-01-29 Inpatient [facility] 46962 94158 Memoria 15:50:00 20:14:[address] 2021-01-21 2021-01-29 Outpatient Aydee [facility] 45475 85509 10:50:00 15:14:00 Monisha 2021-01-21 2021-01-29 Inpatient U AYDEE [facility] CAR 7512 [facility] 10:50:00 15:14:00 MONISHA 2021-01-24 2021-01-24 [place] [id number] 021 [facility]oted 08:00:00 08:00:00 0806 Medica l Group 2021-01-21 2021-01-21 Outpatient Aydee [facility] [id number] 32073 10:50:00 10:50:00 Monisha 12 2021-01-03 2021-01-03 Office DOMINIQUE Diane 1.2.840.114 [id number] 903 07:44:43 09:30:54 Visit Alexandr ALTMAN 350.1.13.58 MEDICAL 9.2.7.2.686 [facility] [id number] 1 2021-01-03 2021-01-03 Office DOMINIQUE Diane 1.2.840.114 [id number] 903 [place] 07:44:43 09:30:54 Visit Alexandr ALTMAN 350.1.13.58 [facility] MEDICAL 9.2.7.2.686 BUILDING [id number] 1 2020-12-26 2020-12-26 Outpatient Eduin KIMBLE [facility] [id number] [facility] 10:30:00 10:30:00 SENDIL [facility] 2020-12-24 2020-12-25 Outpatient nullFlavo [facility] 584 [id number] Memoria 15:32:00 04:59:00 r Disease 11 l [facility] 2020-12-24 2020-12-25 Outpatient nullFlavo Digestive 883 [id number] Memoria 15:32:00 04:59:00 r Disease 11 l [facility] 2020-12-24 2020-12-24 Outpatient Wright, [facility] [id number] 10:32:00 23:59:00 Wonggrupo Madden 2020-12-24 2020-12-24 Outpatient WRIGHT, [facility] 7511 [facility] 10:32:00 23:59:00 WONG 2020-11-12 2020-11-12 Outpatient R GONZALEZ, [facility] [id number] Univers 09:00:00 09:00:00 JOSE LUIS [facility] 2020-10-27 2020-10-[address] [facility] 1.2.840.114 [id number] 98 00:00:00 00:00:00 (Out) Oz Lehman 350.1.13.10 [place] 4.2.7.2.686 Professio [phone] [address] 2020-10-27 2020-10-27 Keyona Kimble [facility] 1.2.840.114 [id number] 98 [facility] 00:00:00 00:00:00 (Out) Oz Lehman 350.1.13.10 [facility] [place] [phone] Sc dical [address] 2020-10-24 2020-10-24 Orders Doctor MARSHALL 1.2.840.114 [id number] 00:00:00 00:00:00 Only Unassigned, BEKA 350.1.13.[address] [facility] 4.2.7.2.686 [id number] 009 2020-10-24 2020-10-24 Orders Doctor MARSHALL 1.2.840.114 [id number] Univers 00:00:00 00:00:00 Only Unassigned, BEKA 350.1.13.[address] [facility] 4.2.7.2.686 Baljinder as [phone] [facility] 00[address] [place] 2020-09-24 2020-09-[address] [facility] 1.2.840.114 [id number] 24 00:00:00 00:00:00 [place] 350.1.13.10 [place] 4.2.7.2.686 Professio [phone] [facility] 220 [facility] 2020-09-24 2020-09-[address] [facility] 1.2.840.114 [id number] 24 Univers 00:00:00 00:00:00 [facility] 350.1.13.10 i ty of [place] Profess[place] [phone] Sc dicvt nal 220 [facility] 2020-09-09 2020-09-09 Patient Daniel [facility] 1.2.840.114 [id number] 44 00:00:00 00:00:00 Outreach Earl PRIMARY 350.1.13.10 Manuel [facility] 4.2.7.2.686 PAVILLION [id number] 388 2020-09-09 2020-09-09 Patient Daniel [facility] 1.2.840.114 [id number] 44 Univers 00:00:00 00:00:00 Outreach Earl PRIMARY 350.1.13.10 i ty of [facility] [place]7.[place] [phone] Sc dical [address] [place] 2020-08-06 2020-08-06 Outpatient R CARLOS [facility] [id number] Univers 14:30:00 14:30:[address] [facility] 2020-08-05 2020-08-05 Outpatient R BLACK [facility] [id number] [id number] Univers 13:30:00 13:30:[address] [facility] 2020-07-23 2020-07-[address] [facility] [address] [facility] 1.2.840.114 [id number] 16389 Univers 13:39:08 23:59:00 Encounter Deja PRIMARY 350.1.13.10 ity of [place] [phone] Sc dical 807 [place] 2020-07-23 2020-07-[address] [facility] 1.2.024.960 4336 5976 13:31:20 14:37:36 Visit Deja PRIMARY 350.1.13.10 A CARE 4.2.7.2.686 PAVILLION [phone] [facility] 2020-07-23 2020-07-23 [facility] 1.2.551.917 9262 5976 [facility] 13:31:20 14:37:36 Visit Deja PRIMARY 350.1.13.10 [place] [phone] [facility] [address] [place] 2020-07-23 2020-07-23 Outpatient [facility] [id number] Univers 13:30:00 13:30:00 DEJA ity of [facility] 2020-07-09 2020-07-09 Outpatient R [facility] [id number] Univers 09:00:00 09:00:00 ity of [facility] 2020-07-03 2020-07-[address] [facility] [id number] Univers 00:00:00 00:00:00 Oz Lehman 350.1.13.10 [place]y [id number] [phone] [facility] nal [address] [facility] 2020-06-27 2020-06-[address] [facility] 1.2.840.114 [id number] Univers 10:05:43 11:00:00 Visit Oz Lehman 350.1.13.10 ity of [id number] [phone] Sc dicvt nal 0[address] [facility] 2020-06-27 2020-06-[address] [facility] 1.2.840.114 [id number] Univers 10:05:43 11:00:00 Visit Oz LEHMAN 350.1.13.10 ity of [place] [phone] Sc dicvt NAL [address] [place] [address] 2020-06-27 2020-06-27 Outpatient R LAMIN [facility] [id number] Univers 09:30:00 11:00:00 SENDIL ity of [facility] 2020-06-27 2020-06-27 [facility] [id number] Univers 09:30:00 09:30:[address] [facility] 2020-05-28 2020-05-28 Laboratory Pc, Adc Echo Room 1 - [facility] 1 .2.840.114 [id number] Univers 08:01:11 08:48:06 Only Oz Kimble 350.1.13. 10 [id number] [phone] [facility] nal [address] [place] [address] 2020-05-28 2020-05-28 Outpatient R [facility] [id number] Univers 08:00:00 08:00:[address] [facility] 2020-05-10 2020-05-10 Nurse Visit, Adc Nurse [facility] 1.2.840.1 [id number] Univers 08:31:07 08:43:46 Visit Oz Kimble 350.1.13. 10 [place]y of [id number] [phone] [facility] nal [address] [place] [address] 2020-05-10 2020-05-10 Outpatient R LAMIN [facility] [id number] Univers 08:30:00 08:30:[address] [facility] 2020-05-07 2020-05-07 Outpatient R [facility] [id number] Univers 08:00:00 08:00:00 ity of [facility] 2020-05-01 2020-05-01 Office Gonzalez, [facility] 1.2.840.114 [id number] Univers 11:02:55 12:04:48 Visit Jose Luis Lehman 350.1.13.10 i ty [place] [phone] Sc dical nal [address] [facility] 2020-05-01 2020-05-01 Outpatient R CARLOS [facility] [id number] Univers 10:30:00 10:30:[address] [facility] [facility] 2020-04-25 2020-04-25 Office Lamin [facility] 1.2.840.114 [id number] Univers 10:07:58 10:48:50 Visit Sendil Mami [facility] 350.1.13.10 it[place] [phone] Sc dical nal 059 [facility] 2020-04-25 2020-04-25 [facility] [id number] Univers 10:00:00 10:00:[address] [facility] 2020-04-25 2020-04-25 Orders Doctor MARSHALL 1..840.114 [id number] Univers 00:00:00 00:00:00 Only Unassigned, BEKA 350.1.13.[address] [facility] 4.2.7.2.686 Baljinder as [phone] [address] 2020-04-05 2020-04-05 Outpatient R LAMIN [facility] [id number] Univers 09:30:00 09:30:[address] [facility] 2020-04-03 2020-04-03 Physical Fitness Trainer 2, Adc Lab [facility] 1..840.114 [id number] Univers 13:13:38 13:28:38 Visit Mona Bhat 350.1.13.10 it[place] [phone] Sc dical nal 353 [facility] 2020-04-03 2020-04-03 Outpatient R [facility] [id number] Univers 13:00:00 13:00:[address] [facility] 2020-04-02 2020-04-02 Office Casey [facility] 1.2.840.114 [id number] Univers 09:00:33 09:54:22 Visit Mona Lehman 350.1.13.10 it[place] [phone] Sc dical [facility] 134 [facility] 2020-04-02 2020-04-02 Outpatient R PALLAVI, [facility] [id number] Univers 08:30:00 08:30:[address] [facility] 2020-04-02 2020-04-02 Outpatient R [facility] [id number] Univers 08:30:00 08:30:[address] [facility] 2020-04-02 2020-04-02 [facility] 1.2.840.114 [id number] Univers 00:24:00 01:09:00 Marlin Levi 350.1.13.10 i [place] [phone] [facility] [address] [place] 2020-04-02 2020-04-02 Orders Doctor JOANNA 1.2.840.114 [id number] Univers 00:00:00 00:00:00 Only Unassigned, BEKA 350.1.13.[address] [facility] 4.2.7.2.686 Baljinder as [phone] [facility] [address] [place] 2020-03-16 2020-03-16 Telephone [facility] 1.2.840.114 [id number] Univers 00:00:00 00:00:00 Yury Lehman 350.1.13.10 i ty of [place] [phone] Sc dical nal 134 [facility] 2020-03-08 2020-03-08 Outpatient R [facility] [id number] Univers 11:00:00 11:00:00 LIMA currie [facility] 2020-03-07 2020-03-07 Telephone [facility] 1.2.840.114 [id number] Univers 00:00:00 00:00:00 Lima Lehman 350.1.13.10 it[place] of [place] [phone] Sc dical nal 188 [facility] 2020-02-06 2020-02-06 Outpatient R DORA [facility] [id number] Univers 09:30:00 09:30:00 BRANDON [facility] 2020-02-06 2020-02-[address] [facility] 1.2.840.114 [id number] Univers 08:57:01 09:24:05 Visit Brandon Lehman 350.1.13.10 i ty of [place] 4.2.7.2.686 Baljinder grupo [facility] [phone] Sc dical nal 044 [facility] 2020-01-25 2020-01-31 Inpatient 1 Rei Waldron [facility] [id number] 21:31:00 18:15:00 Chivo Rei [facility] 2020-01-24 2020-01-24 Outpatient R [facility] [id number] Univers 09:45:00 09:45:[address] [facility] 2020-01-23 2020-01-23 Outpatient Eduin [facility] [id number] Univers 10:30:00 10:30:00 [facility] 2019-12-18 2019-12-18 Outpatient R [facility] [id number] Univers 08:00:00 08:00:[address] [facility] 2019-12-04 2019-12-04 Outpatient [facility] [id number] Univers 14:15:00 14:15:00 BRANDON [facility] 2019-11-06 2019-11-06 TelemedicNIDHI AyalaIT 1.2.840.114 [id number] Univers 07:49:37 08:46:52 ne Visit Yissel Parr 350.1.13.10 ity of 4.2.7.2.686 Baljinder as BANK [phone] [facility] BLDG. [address] [place] 2019-11-06 2019-11-06 Outpatient Eduin RUST [facility] [id number] Univers 08:00:00 08:00:[address] [facility] 2019-10-01 2019-10-01 Emergency [facility] 1.2.438.516 [id number] Univers 15:47:29 19:01:00 Stacie Lehman 350.1.13.10 i ty [place] [phone] [address] 2019-09-05 2019-09-05 Outpatient R DORA [facility] [id number] Univers 13:30:00 13:30:00 BRANDON [facility] 2019-08-28 2019-08-28 Outpatient R ZEKE RUVALCABA [facility] [id number] Univers 15:00:00 15:00:00 [facility] 2019-02-27 2019-02-27 Telephone [facility] 1.2.840.114 [id number] Univers 00:00:00 00:00:00 Adán T SPECIALTY 350.1.13.10 it[place] AT [phone] [facility] 188 [facility] 2019-02-25 2019-02-25 Telephone [facility] 1.2.840.114 [id number] Univers 00:00:00 00:00:00 Adán T SPECIALTY 350.1.13.10 [place] AT [phone] [facility] 205 [facility] 2019-02-22 2019-02-22 [facility] 1.2.8 40.114 [id number] Univers 09:19:22 23:59:00 Encounter Outpt-Josy, Ccl Beka 350.1.13.10 ity of Hospital 4.2.7.2.686 Baljinder as [phone] [address] 2019-02-22 2019-02-22 [facility] 1.2.8 40.114 [id number] Univers 08:00:00 09:18:00 Encounter Outpt-Josy, Ccl Kountze 350.1.13.10 ity of [facility] 4.2.7.2.686 Baljinder as [phone] [address] 2019-02-17 2019-02-17 Office Germán [facility] 1.2.840.114 [id number] Univers 13:09:08 13:54:39 Visit isaacGary 350.1.13.10 it[place] [phone] [facility] [address] 2019-02-17 2019-02-17 Orders Doctor JOANNA 1.2.840.114 [id number] Univers 00:00:00 00:00:00 Only Unassigned, BEKA 350.1.13.10 ity of Happy HOSPITAL 4.2.7.2.686 Baljinder as [phone] [facility] [address] 2019-01-25 2019-01-25 Telephone Traci Kimble 1.2.823.652 [id number] Univers 00:00:00 00:00:00 Oz [place] 350.1.13.10 ity of Hospital 4.2.7.2.686 Baljinder as [phone] [facility] [address] [place] 2019-01-25 2019-01-25 Telephone Traci Kimble 1.2.926.868 [id number] Univers 00:00:00 00:00:00 Oz [place] 350.1.13.10 ity of Hospital 4.2.7.2.686 Baljinder as [phone] [facility] [address] [place] 2019-01-20 2019-01-20 Office Lamin [facility] 1.2.840.114 [id number] Univers 08:55:54 09:56:43 Visit Oz Lehman 350.1.13.10 it[place] of [place] [phone] Sc dical nal [address] [facility] 2019-01-14 2019-01-15 Emergency Hunderup, TRAUMA 1.2.840.114 [id number] Univers 18:20:35 00:24:00 Brandon IBANEZ 350.1.13.10 it [place] [phone] [facility] [address] 2019-01-13 2019-01-13 Office Digna [facility] 1.2.840.114 [id number] Univers 08:10:44 09:19:41 Visit Lima Lehman 350.1.13.10 [facility] [place] 4.2.7.2.686 Amisha Beasley [phone] Sc dical [address] 2018-05-24 2018-05-24 Outpatient SARAHY DORADO, [facility] [id number] [facility] 00:00:00 00:00:00 LY 2016-07-24 2016-07-30 Inpatient nullFlavo [facility] [id number] Memoria 02:04:00 16:20:[address] 2016-07-24 2016-07-30 Inpatient nullFlavo [facility] [id number] Memoria 02:04:00 16:20:[address] 2016-07-23 2016-07-30 Outpatient Yaquelin [facility] [id number] 20:04:00 10:20:00 Luna Segundo 2016-06-10 2016-06-15 Inpatient nullFlavo [facility] [id number] Memoria 16:02:00 18:23:[address] 2016-06-10 2016-06-15 Inpatient nullFlavo [facility] [id number] Memoria 16:02:00 18:23:[address] 2016-06-10 2016-06-15 Outpatient Franck [facility] [id number] 10:02:00 12:23:00 Joe W 09 2014-06-26 2014-06-26 nullFlavo [facility] [id number] Memoria 05:25:00 15:14:00 Emergency r [address] 2014-06-26 2014-06-26 nullFlavo [facility] [id number] Memoria 05:25:00 15:14:00 Emergency r [address] 2014-06-25 2014-06-26 Outpatient Courtney, 2.16.840. 2.16.840. 1. [id number] 23:25:00 09:14:00 Atul [id number]. [id number] Cem 3.615.0.1 5.0.300 57 7793-10-25 2013-04-15 Emergency [facility] [id number] Memoria 21:04:00 01:45:00 r [facility] 07 l [place] 2013-04-14 2013-04-15 Outpatient 2.16.840. 2.16.840.1. 4 [id number] Memoria 21:04:00 01:45:00 [id number]. [id number] 07 l 3.615.0.1 5.0.101 Jake n [facility] 2013-04-14 2013-04-15 Outpatient 2.16.840. 2.16.840.1. 4 [id number] Memoria 21:04:00 01:45:00 [id number]. [id number] 07 l 3.615.0.1 5.0.101 Jake n [facility] 2013-04-14 2013-04-15 Outpatient 2.16.840. 2.16.840.1. 4 [id number] Memoria 21:04:00 01:45:00 [id number]. [id number] 07 l 3.615.0.1 5.0.101 Jake n [facility] 2013-04-14 2013-04-15 Outpatient 2.16.840. 2.16.840.1. 4 [id number] Memoria 21:04:00 01:45:00 [id number]. [id number] 07 l 3.615.0.1 5.0.101 Jake n [facility] 2013-04-14 2013-04-15 Outpatient 2.16.840. 2.16.840.1. 4 [id number] Memoria 21:04:00 01:45:00 1.653954. [id number] 07 l 3.615.0.1 5.0.101 Jake n [facility] 2013-04-14 2013-04-15 Emergency nullFlavo [id number] Memoria 21:04:00 01:45:00 r [facility] Zach l Vin 2012-03-14 2012-03-14 Emergency nullFlavo [id number] Memoria 16:32:00 22:39:[address] 2012-03-14 2012-03-14 Emergency nullFlavo [id number] Memoria 16:32:00 22:39:[address] 2011-11-28 2011-11-30 OU nullFlavo [facility] [id number] Memoria 12:16:00 20:40:00 r Medical 03 [facility] 2011-11-28 2011-11-30 OU nullFlavo [facility] [id number] Memoria 12:16:00 20:40:00 r Medical 03 [facility] 2011-09-18 2011-09-18 Emergency nullFlavo [facility] [place] [id number] Memoria 08:23:00 13:34:00 r Medical 02 [facility] 2011-09-18 2011-09-18 Emergency nullFlavo [facility] [place] [id number] Memoria 08:23:00 13:34:00 r [facility] 02 [facility] 2011-09-01 2011-09-09 Inpatient nullFlavo [facility] [place] [id number] Memoria 01:40:00 15:00:00 r Medical 01 [facility] 2011-09-01 2011-09-09 Inpatient nullFlavo [facility] [place] [id number] Memoria 01:40:00 15:00:00 r Medical 01 [facility] 2011-08-19 2011-08-23 Inpatient nullFlavo [facility] [place] [id number] Memoria 14:25:00 15:28:00 r Medical 00 [facility] 2011-08-19 2011-08-23 Inpatient nullFlavo [facility] [place] [id number] Memoria 14:25:00 15:28:00 r Medical 00 [facility] Results Test Description Test Time Test Comments Results Result Comments Source AFB culture 2021-07-22 18:13:19 Test Item Value Reference Range Interpretation Comme nts AFB culture isolate No growth after 6 weeks of Specimen InformationSpecimen (test code = 543-9) incubation. Source: DrainageSpecimen Site: Thigh: infected wound right [facility] [id number] 18:13:19 Test Item Value Reference Range Interpretation Comments AFB culture No growth Specimen isolate (test after 6 weeks InformationSp ecimen code = 543-9) of Source: [place] geSpecimen incubation. Site: Thigh: in fected wound right thi gh [facility] [id number] 18:13:19 Test Item Value Reference Range Interpretation Comments AFB culture No growth Specimen isolate (test after 6 weeks InformationSp ecimen code = 543-9) of Source: [place] geSpecimen incubation. Site: Thigh: in fected wound right [facility] [id number] 18:13:19 Test Item Value Reference Range Interpretation Comments AFB culture No growth Specimen isolate (test after 6 weeks InformationSp ecimen code = 543-9) of Source: [place] geSpecimen incubation. Site: Thigh: in fected wound right [facility] [id number] 18:13:19 Test Item Value Reference Range Interpretation Comments AFB culture No growth Specimen isolate (test after 6 weeks InformationSp ecimen code = 543-9) of Source: [place] geSpecimen incubation. Site: Thigh: in fected wound right [facility] [id number] 18:13:19 Test Item Value Reference Range Interpretation Comments AFB culture No growth Specimen isolate (test after 6 weeks InformationSp ecimen code = 543-9) of Source: [place] geSpecimen incubation. Site: Thigh: in fected wound right [facility] [id number] 18:13:19 Test Item Value Reference Range Interpretation Comments AFB culture No growth Specimen isolate (test after 6 weeks InformationSp ecimen code = 543-9) of Source: [place] geSpecimen incubation. Site: Thigh: in fected wound right [facility]2022-02-01 18:13:19 Test Item Value Reference Range Interpretation Comments AFB culture No growth Specimen isolate (test after 6 weeks InformationSp ecimen code = 543-9) of Source: [place] geSpecimen incubation. Site: Thigh: in fected wound right [facility]2022-02-01 18:13:19 Test Item Value Reference Range Interpretation Comments AFB culture No growth Specimen isolate (test after 6 weeks InformationSp ecimen code = 543-9) of Source: [place] geSpecimen incubation. Site: Thigh: in fected wound right [facility] [id number] 18:13:19 Test Item Value Reference Range Interpretation Comments AFB culture No growth Specimen isolate (test after 6 weeks InformationSp ecimen code = 543-9) of Source: [place] geSpecimen incubation. Site: Thigh: in fected wound right [facility] [id number] 18:13:19 Test Item Value Reference Range Interpretation Comments AFB culture No growth Specimen isolate (test after 6 weeks InformationSp ecimen code = 543-9) of Source: [place] geSpecimen incubation. Site: Thigh: in fected wound right [facility] [id number] 18:15:13 Test Item Value Reference Range Interpretation Comments Fungus culture No growth Specimen isolate (test after 4 weeks InformationSp ecimen code = 1441) of Source: TissueS pecimen incubation. Site: [facility]2022-01-25 18:15:13 Test Item Value Reference Range Interpretation Comments Fungus culture No growth Specimen isolate (test after 4 weeks InformationSp ecimen code = 1441) of Source: TissueS pecimen incubation. Site: [facility]2022-01-25 18:15:13 Test Item Value Reference Range Interpretation Comments Fungus culture No growth Specimen isolate (test after 4 weeks InformationSp ecimen code = 1441) of Source: TissueS pecimen incubation. Site: [facility]2022-01-25 18:15:13 Test Item Value Reference Range Interpretation Comments Fungus culture No growth Specimen isolate (test after 4 weeks InformationSp ecimen code = 1441) of Source: TissueS pecimen incubation. Site: [facility]2022-01-25 18:15:13 Test Item Value Reference Range Interpretation Comments Fungus culture No growth Specimen isolate (test after 4 weeks InformationSp ecimen code = 1441) of Source: TissueS pecimen incubation. Site: [facility]2022-01-25 18:15:13 Test Item Value Reference Range Interpretation Comments Fungus culture No growth Specimen isolate (test after 4 weeks InformationSp ecimen code = 1441) of Source: TissueS pecimen incubation. Site: [facility]2022-01-25 18:15:13 Test Item Value Reference Range Interpretation Comments Fungus culture No growth Specimen isolate (test after 4 weeks InformationSp ecimen code = 1441) of Source: TissueS pecimen incubation. Site: [facility]2022-01-25 18:15:13 Test Item Value Reference Range Interpretation Comments Fungus culture No growth Specimen isolate (test after 4 weeks InformationSp ecimen code = 1441) of Source: TissueS pecimen incubation. Site: [facility]2022-01-25 18:15:13 Test Item Value Reference Range Interpretation Comments Fungus culture No growth Specimen isolate (test after 4 weeks InformationSp ecimen code = 1441) of Source: TissueS pecimen incubation. Site: [facility]2022-01-25 18:15:13 Test Item Value Reference Range Interpretation Comments Fungus culture No growth Specimen isolate (test after 4 weeks InformationSp ecimen code = 1441) of Source: TissueS pecimen incubation. Site: [facility]2022-01-25 18:15:13 Test Item Value Reference Range Interpretation Comments Fungus culture No growth Specimen isolate (test after 4 weeks InformationSp ecimen code = 1441) of Source: TissueS pecimen incubation. Site: [facility]2022-01-25 18:15:13 Test Item Value Reference Range Interpretation Comments Fungus culture No growth Specimen isolate (test after 4 weeks InformationSp ecimen code = 1441) of Source: TissueS pecimen incubation. Site: [facility]2022-01-25 18:15:13 Test Item Value Reference Range Interpretation Comments Fungus culture No growth Specimen isolate (test after 4 weeks InformationSp ecimen code = 1441) of Source: TissueS pecimen incubation. Site: [place] 088122-01-01 14:31:13 Test Item Value Reference Range Interpretation Comments Anaerobic No anaerobic Specimen culture isolate organisms InformationS pecimen (test code = isolated. Source: TissueS pecimen 552) Site: [place] 088122-01-01 14:31:13 Test Item Value Reference Range Interpretation Comments Anaerobic No anaerobic Specimen culture isolate organisms InformationS pecimen (test code = isolated. Source: TissueS pecimen 552) Site: [place] 088122-01-01 14:31:13 Test Item Value Reference Range Interpretation Comments Anaerobic No anaerobic Specimen culture isolate organisms InformationS pecimen (test code = isolated. Source: TissueS pecimen 552) Site: [place] 088122-01-01 14:31:13 Test Item Value Reference Range Interpretation Comments Anaerobic No anaerobic Specimen culture isolate organisms InformationS pecimen (test code = isolated. Source: TissueS pecimen 552) Site: [place] 088122-01-01 14:31:13 Test Item Value Reference Range Interpretation Comments Anaerobic No anaerobic Specimen culture isolate organisms InformationS pecimen (test code = isolated. Source: TissueS pecimen 552) Site: [place] 088122-01-01 14:31:13 Test Item Value Reference Range Interpretation Comments Anaerobic No anaerobic Specimen culture isolate organisms InformationS pecimen (test code = isolated. Source: TissueS pecimen 552) Site: [place] 088122-01-01 14:31:13 Test Item Value Reference Range Interpretation Comments Anaerobic No anaerobic Specimen culture isolate organisms InformationS pecimen (test code = isolated. Source: TissueS pecimen 552) Site: [place] 088122-01-01 14:31:13 Test Item Value Reference Range Interpretation Comments Anaerobic No anaerobic Specimen culture isolate organisms InformationS pecimen (test code = isolated. Source: TissueS pecimen 552) Site: [place] 088122-01-01 14:31:13 Test Item Value Reference Range Interpretation Comments Anaerobic No anaerobic Specimen culture isolate organisms InformationS pecimen (test code = isolated. Source: TissueS pecimen 552) Site: [place] 088122-01-01 14:31:13 Test Item Value Reference Range Interpretation Comments Anaerobic No anaerobic Specimen culture isolate organisms InformationS pecimen (test code = isolated. Source: TissueS pecimen 552) Site: [place] 088122-01-01 14:31:13 Test Item Value Reference Range Interpretation Comments Anaerobic No anaerobic Specimen culture isolate organisms InformationS pecimen (test code = isolated. Source: TissueS pecimen 552) Site: [place] 088122-01-01 14:31:13 Test Item Value Reference Range Interpretation Comments Anaerobic No anaerobic Specimen culture isolate organisms InformationS pecimen (test code = isolated. [facility]: [facility] Site[facility]2022-01-01 14:31:13 Test Item Value Reference Range Interpretation Comments Anaerobic No anaerobic Specimen culture isolate organisms InformationS pecimen (test code = isolated. Source: [facility] 552) Site: [facility] [id number] 16:51:58 Test Item Value Reference Range Interpretation Comments Gram stain No WBC's or Specimen isolate (test organisms seen. Information Specimen code = 1469) Source: [facility] Site: [facility] [id number] 16:51:58 Test Item Value Reference Range Interpretation Comments Aerobic culture No growth Specimen isolate (test after 3 days. InformationSp ecimen code = 498) Source: [facility] Site: [facility] [id number] 16:51:58 Test Item Value Reference Range Interpretation Comments Fungus smear No fungi Specimen (test code = observed. InformationSpec imen Source: 1443) [facility] Site: [facility] [id number] 16:51:58 Test Item Value Reference Range Interpretation Comments Gram stain No WBC's or Specimen isolate (test organisms seen. Information Specimen code = 1469) Source: [facility] Site: [facility] [id number] 16:51:58 Test Item Value Reference Range Interpretation Comments Aerobic culture No growth Specimen isolate (test after 3 days. InformationSp ecimen code = 498) Source: [facility] Site: [facility] [id number] 16:51:58 Test Item Value Reference Range Interpretation Comments Fungus smear No fungi Specimen (test code = observed. InformationSpec imen Source: 1443) [facility] Site: [facility] [id number] 16:51:58 Test Item Value Reference Range Interpretation Comments Gram stain No WBC's or Specimen isolate (test organisms seen. Information Specimen code = 1469) Source: [facility] [id number] 16:51:58 Test Item Value Reference Range Interpretation Comments Aerobic culture No growth Specimen isolate (test after 3 days. InformationSp ecimen code = 498) Source: [facility] [id number] 16:51:58 Test Item Value Reference Range Interpretation Comments Fungus smear No fungi Specimen (test code = observed. InformationSpec imen Source: 1443[facility] [id number] 16:51:58 Test Item Value Reference Range Interpretation Comments Gram stain No WBC's or Specimen isolate (test organisms seen. Information Specimen code = 1469) Source: [facility] [id number] 16:51:58 Test Item Value Reference Range Interpretation Comments Aerobic culture No growth Specimen isolate (test after 3 days. InformationSp ecimen code = 498) Source: [facility] Site: [facility] [id number] 16:51:58 Test Item Value Reference Range Interpretation Comments Fungus smear No fungi Specimen (test code = observed. InformationSpec imen Source: 1443) [facility] Site: [facility]2021-12-31 16:51:58 Test Item Value Reference Range Interpretation Comments Gram stain No WBC's or Specimen isolate (test organisms seen. Information Specimen code = 1469) Source: [facility] Site: [facility] [facility] [id number] 16:51:58 Test Item Value Reference Range Interpretation Comments Aerobic culture No growth Specimen isolate (test after 3 days. InformationSp ecimen code = 498) Source: [facility] [id number] 16:51:58 Test Item Value Reference Range Interpretation Comments Fungus smear No fungi Specimen (test code = observed. InformationSpec imen Source: 1443) [facility] [id number] 16:51:58 Test Item Value Reference Range Interpretation Comments Gram stain No WBC's or Specimen isolate (test organisms seen. Information Specimen code = 1469) Source: [facility] Site: [facility] [id number] 16:51:58 Test Item Value Reference Range Interpretation Comments Aerobic culture No growth Specimen isolate (test after 3 days. InformationSp ecimen code = 498) Source: [facility] Site: [facility]2021-12-31 16:51:58 Test Item Value Reference Range Interpretation Comments Fungus smear No fungi Specimen (test code = observed. InformationSpec imen Source: 1443) TissueSpecimen Site: [facility]2021-12-31 16:51:58 Test Item Value Reference Range Interpretation Comments Gram stain No WBC's or Specimen isolate (test organisms seen. Information Specimen code = 1469) Source: [facility] Site: [facility]2021-12-31 16:51:58 Test Item Value Reference Range Interpretation Comments Aerobic culture No growth Specimen isolate (test after 3 days. InformationSp ecimen code = 498) Source: [facility] Site: [facility]2021-12-31 16:51:58 Test Item Value Reference Range Interpretation Comments Fungus smear No fungi Specimen (test code = observed. InformationSpec imen Source: 1443) [facility]2021-12-31 16:51:58 Test Item Value Reference Range Interpretation Comments Gram stain No WBC's or Specimen isolate (test organisms seen. Information Specimen code = 1469) Source: [facility] Site: [facility]2021-12-31 16:51:58 Test Item Value Reference Range Interpretation Comments Aerobic culture No growth Specimen isolate (test after 3 days. InformationSp ecimen code = 498) Source: [facility] Site: [facility]2021-12-31 16:51:58 Test Item Value Reference Range Interpretation Comments Fungus smear No fungi Specimen (test code = observed. InformationSpec imen Source: 1443) TissueSpecime Site: [facility]2021-12-31 16:51:58 Test Item Value Reference Range Interpretation Comments Gram stain No WBC's or Specimen isolate (test organisms seen. Information Specimen code = 1469) Source: [facility] Site: [facility]2021-12-31 16:51:58 Test Item Value Reference Range Interpretation Comments Aerobic culture No growth Specimen isolate (test after 3 days. InformationSp ecimen code = 498) Source: [facility] Site: [facility]2021-12-31 16:51:58 Test Item Value Reference Range Interpretation Comments Fungus smear No fungi Specimen (test code = observed. InformationSpec imen Source: 1443) [facility]2021-12-31 16:51:58 Test Item Value Reference Range Interpretation Comments Gram stain No WBC's or Specimen isolate (test organisms seen. Information Specimen code = 1469) Source: [facility] Site: [facility] [id number] 16:51:58 Test Item Value Reference Range Interpretation Comments Aerobic culture No growth Specimen isolate (test after 3 days. InformationSp ecimen code = 498) Source: [facility] Site: [facility] [id number] 16:51:58 Test Item Value Reference Range Interpretation Comments Fungus smear No fungi Specimen (test code = observed. InformationSpec imen Source: 1443) [facility] Site: [facility]2021-12-31 16:51:58 Test Item Value Reference Range Interpretation Comments Gram stain No WBC's or Specimen isolate (test organisms seen. Information Specimen code = 1469) Source: [facility] Site: [facility] [id number] 16:51:58 Test Item Value Reference Range Interpretation Comments Aerobic culture No growth Specimen isolate (test after 3 days. InformationSp ecimen code = 498) Source: [facility] Site: [facility] [id number] 16:51:58 Test Item Value Reference Range Interpretation Comments Fungus smear No fungi Specimen (test code = observed. InformationSpec imen Source: 1443) [facility]2021-12-31 16:51:58 Test Item Value Reference Range Interpretation Comments Gram stain No WBC's or Specimen isolate (test organisms seen. Information Specimen code = 1469) Source: [facility] Site: [facility] [id number] 16:51:58 Test Item Value Reference Range Interpretation Comments Aerobic culture No growth Specimen isolate (test after 3 days. InformationSp ecimen code = 498) Source: [facility] [id number] 16:51:58 Test Item Value Reference Range Interpretation Comments Fungus smear No fungi Specimen (test code = observed. InformationSpec imen Source: 1443) TissueSpecimen [facility] [id number] 16:51:58 Test Item Value Reference Range Interpretation Comments Gram stain No WBC's or Specimen isolate (test organisms seen. Information Specimen code = 1469) Source: TissueS pecimen [facility] [id number] 16:51:58 Test Item Value Reference Range Interpretation Comments Aerobic culture No growth Specimen isolate (test after 3 days. InformationSp ecimen code = 498) Source: TissueS pecimen [facility] [id number] 16:51:58 Test Item Value Reference Range Interpretation Comments Fungus smear No fungi Specimen (test code = observed. InformationSpec imen Source: 1443) TissueSpecimen Site: [facility] cdfmthq3265-27-95 17:00:57 Test Item Value Reference Range Interpretation Comments POC glucose (test code 79 mg/dL 65-99 Opera tor Name: Eboni = 60919-0) AmiDevice ID: [id number] [facility]2021-12-29 17:00:57 Test Item Value Reference Range Interpretation Comments POC glucose (test code 79 mg/dL 65-99 Opera tor Name: Eboni = 39725-7) AmiDevice ID: [id number] [facility]2021-12-29 17:00:57 Test Item Value Reference Range Interpretation Comments POC glucose (test code 79 mg/dL 65-99 Opera tor Name: Eboni = 60798-5) AmiDevice ID: [id number] [facility] [id number] 17:00:57 Test Item Value Reference Range Interpretation Comments POC glucose (test code 79 mg/dL 65-99 Opera tor Name: Eboni = 42487-7) AmiDevice ID: [id number] [facility]2021-12-29 17:00:57 Test Item Value Reference Range Interpretation Comments POC glucose (test code 79 mg/dL 65-99 Opera tor Name: Eboni = 33711-6) AmiDevice ID: [id number] [facility]2021-12-29 17:00:57 Test Item Value Reference Range Interpretation Comments POC glucose (test code 79 mg/dL 65-99 Opera tor Name: Eboni = 24577-9) AmiDevice ID: [id number] [facility] [id number] 17:00:57 Test Item Value Reference Range Interpretation Comments POC glucose (test code 79 mg/dL 65-99 Opera tor Name: Eboni = 30535-0) AmiDevice ID: [id number] [facility] [id number] 17:00:57 Test Item Value Reference Range Interpretation Comments POC glucose (test code 79 mg/dL 65-99 Opera tor Name: Eboni = 85304-6) AmiDevice ID: [id number] [facility] [id number] 17:00:57 Test Item Value Reference Range Interpretation Comments POC glucose (test code 79 mg/dL 65-99 Opera tor Name: Eboni = 69706-4) AmiDevice ID: [id number] [facility] [id number] 17:00:57 Test Item Value Reference Range Interpretation Comments POC glucose (test code 79 mg/dL 65-99 Opera tor Name: Eboni = 35250-4) AmiDevice ID: [id number] [facility] [id number] 17:00:57 Test Item Value Reference Range Interpretation Comments POC glucose (test code 79 mg/dL 65-99 Opera tor Name: Eboni = 95131-9) AmiDevice ID: [id number] [facility] [id number] 17:00:57 Test Item Value Reference Range Interpretation Comments POC glucose (test code 79 mg/dL 65-99 Opera tor Name: Eboni = 35752-7) AmiDevice ID: [id number] [facility] [id number] 17:00:57 Test Item Value Reference Range Interpretation Comments POC glucose (test code 79 mg/dL 65-99 Opera tor Name: Eboni = 74589-0) AmiDevice ID: [id number] [facility] , [id number] 20:46:00 Test Item Value Reference Range Interpretation Comments test urine, POC (test Negative code = 5866859) Internal QC (test code = 257) QC acceptable [facility] , [id number] 20:46:00 Test Item Value Reference Range Interpretation Comments test urine, POC (test Negative code = 0820771) Internal QC (test code = 257) [facility] , [id number] 20:46:00 Test Item Value Reference Range Interpretation Comments test urine, POC (test Negative code = 2392542) Internal QC (test code = 257) QC [facility] , [id number] 20:46:00 Test Item Value Reference Range Interpretation Comments test urine, POC (test Negative code = 8153236) Internal QC (test code = 257) QC [facility] , [id number] 20:46:00 Test Item Value Reference Range Interpretation Comments test urine, POC (test Negative code = 5030492) Internal QC (test code = 257) QC [facility] , [id number] 20:46:00 Test Item Value Reference Range Interpretation Comments test urine, POC (test Negative code = 6399105) Internal QC (test code = 257) QC acceptable [facility] , [id number] 20:46:00 Test Item Value Reference Range Interpretation Comments test urine, POC (test Negative code = 6446395) Internal QC (test code = 257) QC acceptable [facility] , [id number] 20:46:00 Test Item Value Reference Range Interpretation Comments test urine, POC (test Negative code = 0107474) Internal QC (test code = 257) QC acceptable [facility] , [id number] 20:46:00 Test Item Value Reference Range Interpretation Comments test urine, POC (test Negative code = 0753984) Internal QC (test code = 257) QC [facility] , [id number] 20:46:00 Test Item Value Reference Range Interpretation Comments test urine, POC (test Negative code = 4651111) Internal QC (test code = 257) QC acceptable [facility] , [id number] 20:46:00 Test Item Value Reference Range Interpretation Comments test urine, POC (test Negative code = 0948295) Internal QC (test code = 257) QC acceptable [facility] , [id number] 20:46:00 Test Item Value Reference Range Interpretation Comments test urine, POC (test Negative code = 7487964) Internal QC (test code = 257) QC acceptable [facility] , [id number] 20:46:00 Test Item Value Reference Range Interpretation Comments test urine, POC (test Negative code = 5620217) Internal QC (test code = 257) QC acceptable [address]2021-12-27 17:27:33 Test Item Value Reference Range Interpretation Comments Ventricular rate (test code = 253) Atrial rate (test code = 255) AL interval (test code = 266) QRSD interval [...] of 04-JUN-2021 18:19,-No significant change was found- [address]2021-12-27 17:27:33 Test Item Value Reference Range Interpretation Comments Ventricular rate (test code = 253) Atrial rate (test code = 255) AL interval (test code = 266) QRSD interval [...] of 04-JUN-2021 18:19,-No significant change was found- [address]2021-12-27 17:27:33 Test Item Value Reference Range Interpretation Comments Ventricular rate (test code = 253) Atrial rate (test code = 255) AL interval (test code = 266) QRSD interval [...] of 04-JUN-2021 18:19,-No significant change was found- [address]2021-12-27 17:27:33 Test Item Value Reference Range Interpretation Comments Ventricular rate (test code = 253) Atrial rate (test code = 255) AL interval (test code = 266) QRSD interval [...] of 04-JUN-2021 18:19,-No significant change was found- [address]2021-12-27 17:27:33 Test Item Value Reference Range Interpretation Comments Ventricular rate (test code = 253) Atrial rate (test code = 255) AL interval (test code = 266) QRSD interval [...] of 04-JUN-2021 18:19,-No significant change was found- [address]2021-12-27 17:27:33 Test Item Value Reference Range Interpretation Comments Ventricular rate (test code = 253) Atrial rate (test code = 255) AL interval (test code = 266) QRSD interval [...] of 04-JUN-2021 18:19,-No significant change was found- [address]2021-12-27 17:27:33 Test Item Value Reference Range Interpretation Comments Ventricular rate (test code = 253) Atrial rate (test code = 255) AL interval (test code = 266) QRSD interval [...] of 04-JUN-2021 18:19,-No significant change was found- [address]2021-12-27 17:27:33 Test Item Value Reference Range Interpretation Comments Ventricular rate (test code = 253) Atrial rate (test code = 255) AL interval (test code = 266) QRSD interval [...] of 04-JUN-2021 18:19,-No significant change was found- [address]2021-12-27 17:27:33 Test Item Value Reference Range Interpretation Comments Ventricular rate (test code = 253) Atrial rate (test code = 255) AL interval (test code = 266) QRSD interval [...] of 04-JUN-2021 18:19,-No significant change was found- [address]2021-12-27 17:27:33 Test Item Value Reference Range Interpretation Comments Ventricular rate (test code = 253) Atrial rate (test code = 255) AL interval (test code = 266) QRSD interval [...] of 04-JUN-2021 18:19,-No significant change was found- [address]2021-12-27 17:27:33 Test Item Value Reference Range Interpretation Comments Ventricular rate (test code = 253) Atrial rate (test code = 255) AL interval (test code = 266) QRSD interval [...] of 04-JUN-2021 18:19,-No significant change was found- [address]2021-12-27 17:27:33 Test Item Value Reference Range Interpretation Comments Ventricular rate (test code = 253) Atrial rate (test code = 255) AL interval (test code = 266) QRSD interval [...] of 04-JUN-2021 18:19,-No significant change was found- [facility] 12 [id number] 17:27:33 Test Item Value Reference Range Interpretation Comments Ventricular rate (test code = 253) Atrial rate (test code = 255) AL interval (test code = 266) QRSD interval [...] of 04-JUN-2021 18:19,-No significant change was found- [facility]2021-12-27 11:06:00 Test Item Value Reference Range Interpretation Comments ABO grouping (test code = 883-9) B Rh type (test code = 76636-9) POS Antibody screen (gel) (test code = NEG 890-4) [facility] and [id number] 11:06:00 Test Item Value Reference Range Interpretation Comments ABO grouping (test code = 883-9) B Rh type (test code = 06011-0) POS Antibody screen (gel) (test code = NEG 890-4) [facility] and timjto7885-07-08 11:06:00 Test Item Value Reference Range Interpretation Comments ABO grouping (test code = 883-9) B Rh type (test code = 96094-3) POS Antibody screen (gel) (test code = NEG 890-4) [facility] and [id number] 11:06:00 Test Item Value Reference Range Interpretation Comments ABO grouping (test code = 883-9) B Rh type (test code = 59642-3) POS Antibody screen (gel) (test code = NEG 890-4) [facility] and [id number] 11:06:00 Test Item Value Reference Range Interpretation Comments ABO grouping (test code = 883-9) B Rh type (test code = 20562-8) POS Antibody screen (gel) (test code = NEG 890-4) [facility] and [id number] 11:06:00 Test Item Value Reference Range Interpretation Comments ABO grouping (test code = 883-9) B Rh type (test code = 72485-4) POS Antibody screen (gel) (test code = NEG 890-4) [facility] and [id number] 11:06:00 Test Item Value Reference Range Interpretation Comments ABO grouping (test code = 883-9) B Rh type (test code = 29397-4) POS Antibody screen (gel) (test code = NEG 890-4) [facility] and [id number] 11:06:00 Test Item Value Reference Range Interpretation Comments ABO grouping (test code = 883-9) B Rh type (test code = 72872-3) POS Antibody screen (gel) (test code = NEG 890-4) [facility] and [id number] 11:06:00 Test Item Value Reference Range Interpretation Comments ABO grouping (test code = 883-9) B Rh type (test code = 16371-7) POS Antibody screen (gel) (test code = NEG 890-4) [facility] and [id number] 11:06:00 Test Item Value Reference Range Interpretation Comments ABO grouping (test code = 883-9) B Rh type (test code = 61483-9) POS Antibody screen (gel) (test code = NEG 890-4) [facility] and [id number] 11:06:00 Test Item Value Reference Range Interpretation Comments ABO grouping (test code = 883-9) B Rh type (test code = 57218-4) POS Antibody screen (gel) (test code = NEG 890-4) [facility] and spbvvd7277-73-04 11:06:00 Test Item Value Reference Range Interpretation Comments ABO grouping (test code = 883-9) B Rh type (test code = 96449-2) POS Antibody screen (gel) (test code = NEG 890-4) [facility] [id number] 11:06:00 Test Item Value Reference Range Interpretation Comments ABO grouping (test code = 883-9) B Rh type (test code = 76176-6) POS Antibody screen (gel) (test code = NEG 890-4) 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 InformationSp ecimen code = 71544-8) Source: [facility] ueSpecimen Site: Thigh: in fected right thigh wou nd [facility] rnxames7909-87-86 20:18:46 Test Item Value Reference Range Interpretation Comments Tissue culture No growth Specimen isolate (test after 3 days. InformationSp ecimen code = 93273-4) Source: [facility] ueSpecimen Site: Thigh: in fected right thigh wou nd [facility]2021-12-24 20:18:46 Test Item Value Reference Range Interpretation Comments Tissue culture No growth Specimen isolate (test after 3 days. InformationSp ecimen code = 45025-1) Source: [facility] ueSpecimen Site: Thigh: in fected right thigh [facility]ou nd [facility] 20:18:46 Test Item Value Reference Range Interpretation Comments Tissue culture No growth Specimen isolate (test after 3 days. InformationSp ecimen code = 19998-9) Source: [place] uKalecimen Site: Thigh: in fected right thigh wou [facility]2021-12-24 20:18:46 Test Item Value Reference Range Interpretation Comments Tissue culture No growth Specimen isolate (test after 3 days. InformationSp ecimen code = 94777-6) Source: [facility] ueSpecimen Site: Thigh: in fected right thigh wou [facility]2021-12-24 20:18:46 Test Item Value Reference Range Interpretation Comments Tissue culture No growth Specimen isolate (test after 3 days. InformationSp ecimen code = 53061-8) Source: [place] ueSpecimen Site: Thigh: in fected right thigh wou [facility]2021-12-24 20:18:46 Test Item Value Reference Range Interpretation Comments Tissue culture No growth Specimen isolate (test after 3 days. InformationSp ecimen code = 35279-2) Source: [place] ueSpecimen Site: Thigh: in fected right thigh wou [facility]2021-12-24 20:18:46 Test Item Value Reference Range Interpretation Comments Tissue culture No growth Specimen isolate (test after 3 days. InformationSp ecimen code = 71414-3) Source: [place] ueSpecimen Site: Thigh: in fected right thigh wou [facility] [id number] 20:18:46 Test Item Value Reference Range Interpretation Comments Tissue culture No growth Specimen isolate (test after 3 days. InformationSp ecimen code = 35316-9) Source: Tiss ueSpecimen Site: Thigh: in fected right thigh wou [facility] [id number] 20:18:46 Test Item Value Reference Range Interpretation Comments Tissue culture No growth Specimen isolate (test after 3 days. InformationSp ecimen code = 81192-6) Source: [facility] ueSpecimen Site: Thigh: in fected right thigh wou [facility]2021-12-24 20:18:46 Test Item Value Reference Range Interpretation Comments Tissue culture No growth Specimen isolate (test after 3 days. [facility] = 93065-7) Source: Tiss ueSpecimen Site: Thigh: [facility]ected [facility] [id number] 20:24:42 Test Item Value Reference Range Interpretation Comments AFB stain No acid fast Specimen (test code = bacilli (AFB) InformationSpe cimen 676-7) seen. Source: [place] eSpecimen Site: [facility]: [facility] [id number] 20:24:42 Test Item Value Reference Range Interpretation Comments AFB stain No acid fast Specimen (test code = bacilli (AFB) InformationSpe cimen 676-7) seen. Source: [place] eSpecimen Site: Thigh: in fected wound right [facility] [id number] 20:24:42 Test Item Value Reference Range Interpretation Comments AFB stain No acid fast Specimen (test code = bacilli (AFB) InformationSpe cimen 676-7) seen. Source: [place] eSpecimen Site: Thigh: [facility]ect[facility] [id number] 20:24:42 Test Item Value Reference Range Interpretation Comments AFB stain No acid fast Specimen (test code = bacilli (AFB) InformationSpe cimen 676-7) seen. Source: [place] eSpecimen Site: Thigh: in fected wound right [facility] [id number] 20:24:42 Test Item Value Reference Range Interpretation Comments AFB stain No acid fast Specimen (test code = bacilli (AFB) InformationSpe cimen 676-7) seen. Source: [place] eSpecimen Site: Thigh: [facility]ected [facility] [id number] 20:24:42 Test Item Value Reference Range Interpretation Comments AFB stain No acid fast Specimen (test code = bacilli (AFB) InformationSpe cimen 676-7) seen. Source: [place] eSpecimen Site: Thigh: in fected wound right [facility] [id number] 20:24:42 Test Item Value Reference Range Interpretation Comments AFB stain No acid fast Specimen (test code = bacilli (AFB) InformationSpe cimen 676-7) seen. Source: [place] eSpecimen Site: Thigh: in fected wound right [facility] [id number] 20:24:42 Test Item Value Reference Range Interpretation Comments AFB stain No acid fast Specimen (test code = bacilli (AFB) InformationSpe cimen 676-7) seen. Source: Drainag eSpecimen Site: Thigh: [facility]ect[facility] lktwt[facility]81[facility] 20:24:42 Test Item Value Reference Range Interpretation Comments AFB stain No acid fast Specimen (test code = bacilli (AFB) InformationSpe cimen 676-7) seen. Source: Drainag eSpecimen Site: Thigh: [facility] jszjk5826-58-43 20:24:42 Test Item Value Reference Range Interpretation Comments AFB stain No acid fast Specimen (test code = bacilli (AFB) InformationSpe cimen 676-7) seen. Source: Drainag eSpecimen Site: Thigh: [facility]ected wound [facility] uphvx8067-70-06 20:24:42 Test Item Value Reference Range Interpretation Comments AFB stain No acid fast Specimen (test code = bacilli (AFB) InformationSpe cimen 676-7) seen. Source: Drain eSpecimen Site: Thigh: in fected wound right [facility] rarekpc6318-86-80 09:49:57 Test Item Value Reference Range Interpretation Comments Urine culture No growth Specimen isolate (test after 24 InformationSpe cimen code = 14132-2) hours Source: Urin eSpecimen Site: Clean cat [facility] xwjzjae9396-56-13 09:49:57 Test Item Value Reference Range Interpretation Comments Urine culture No growth Specimen isolate (test after 24 InformationSpe cimen code = 22570-8) hours Source: Urin eSpecimen Site: [facility] sgcmheo9260-32-11 09:49:57 Test Item Value Reference Range Interpretation Comments Urine culture No growth Specimen isolate (test after 24 InformationSpe cimen code = 97553-3) hours Source: Urin eSpecimen Site: [facility] cat [facility]2021-12-20 09:49:57 Test Item Value Reference Range Interpretation Comments Urine culture No growth Specimen isolate (test after 24 InformationSpe cimen code = 01813-3) hours Source: [facility] Site: [facility]2021-12-20 09:49:57 Test Item Value Reference Range Interpretation Comments Urine culture No growth Specimen isolate (test after 24 InformationSpe cimen code = 40296-3) hours Source: [facility] Site: [facility]2021-12-20 09:49:57 Test Item Value Reference Range Interpretation Comments Urine culture No growth Specimen isolate (test after 24 InformationSpe cimen code = 28835-7) hours Source: [facility] Site: [facility]2021-12-20 09:49:57 Test Item Value Reference Range Interpretation Comments Urine culture No growth Specimen isolate (test after 24 InformationSpe cimen code = 37220-6) hours Source: [facility] Site: [facility]2021-12-20 09:49:57 Test Item Value Reference Range Interpretation Comments Urine culture No growth Specimen isolate (test after 24 InformationSpe cimen code = 04902-2) hours Source: [facility] Site: [facility]2021-12-20 09:49:57 Test Item Value Reference Range Interpretation Comments Urine culture No growth Specimen isolate (test after 24 InformationSpe cimen code = 05967-4) hours Source: [facility] Site: [facility]2021-12-20 09:49:57 Test Item Value Reference Range Interpretation Comments Urine culture No growth Specimen isolate (test after 24 InformationSpe cimen code = 69217-1) hours Source: [facility] Site: [facility]2021-12-20 09:49:57 Test Item Value Reference Range Interpretation Comments Urine culture No growth Specimen isolate (test after 24 InformationSpe cimen code = 37857-2) hours Source: [facility] vpsdxrpdkvah6128-77-70 12:52:00 Test Item Value Reference Range Interpretation Comments ABO grouping (test code = 883-9) B Rh type (test code = 65592-7) [facility] mvwlfgjmofkf9611-81-98 12:52:00 Test Item Value Reference Range Interpretation Comments ABO grouping (test code = 883-9) B Rh type (test code = 44789-0) [facility] ufcrsixoyomp9460-55-17 12:52:00 Test Item Value Reference Range Interpretation Comments ABO grouping (test code = 883-9) B Rh type (test code = 30550-6) [facility] vdfgoyjsttsw6215-90-30 12:52:00 Test Item Value Reference Range Interpretation Comments ABO grouping (test code = 883-9) B Rh type (test code = 54894-1) [facility] rdaamrcqwgil3382-27-34 12:52:00 Test Item Value Reference Range Interpretation Comments ABO grouping (test code = 883-9) B Rh type (test code = 51671-2) [facility] ldzpqphakjsu0009-85-67 12:52:00 Test Item Value Reference Range Interpretation Comments ABO grouping (test code = 883-9) B Rh type (test code = 07221-9) [facility] drhpzpyvypig2976-46-54 12:52:00 Test Item Value Reference Range Interpretation Comments ABO grouping (test code = 883-9) B Rh type (test code = 79924-6) [facility] jzcrrvvltljx0885-61-52 12:52:00 Test Item Value Reference Range Interpretation Comments ABO grouping (test code = 883-9) B Rh type (test code = 53207-9) [facility] fbubjpvzqfnx8330-94-02 12:52:00 Test Item Value Reference Range Interpretation Comments ABO grouping (test code = 883-9) B Rh type (test code = 21473-1) [facility] rmifnipzxunh3640-18-38 12:52:00 Test Item Value Reference Range Interpretation Comments ABO grouping (test code = 883-9) B Rh type (test code = 44943-6) [facility] sidmfmqzzqqe1244-04-32 12:52:00 Test Item Value Reference Range Interpretation Comments ABO grouping (test code = 883-9) B Rh type (test code = 90497-8) POS Muslim ZbhqxbugUCVT-NkF-6 (COVID-19) RNA [Presence] in Respiratory specimen by EMANUEL with probe klyaeabea1979-13-21 03:04:32 Test Item Value Reference Range Interpretation Comments SARS-CoV-2 (COVID-19) RNA Not detected Not-Detected [Presence] in Respiratory specimen by EMANUEL with probe detection (test code = 36780-0) 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 (test code = 09911-6) Whether the patient has symptoms related to condition of interest (test code = 14408-4) Patient was hospitalized because of this condition (test code = 35393-6) Whether the patient was admitted to intensive care unit (ICU) for condition of interest (test code = 55416-2) Whether patient resides in a congregate care setting (test code = 03538-8) [facility], 1 Mrhso9589-19-55 22:22:00 Test Item Value Reference Range Interpretation Comments Product name (test code Red Blood Cells -1, = 25) Leukored Unit number (test code = [id number] 3559569) Product code (test code D0462P05 = 3092) Dispense status (test Transfused code = 24) Blood expiration date (test code = 302) Blood type code (test code = 308) Blood type (test code = B POSITIVE 1314) Compatibility (test code Compatible = 6400) [facility] RBC, 1 Ungdu5060-33-14 22:22:00 Test Item Value Reference Range Interpretation Comments Product name (test code Red Blood Cells -1, = 25) Leukored Unit number (test code = [id number] 6176202) Product code (test code Z0074U41 = 3092) Dispense status (test Transfused code = 24) Blood expiration date (test code = 302) Blood type code (test code = 308) Blood type (test code = B POSITIVE 1314) Compatibility (test code Compatible = 6400[facility] Uovcg2939-72-99 22:22:00 Test Item Value Reference Range Interpretation Comments Product name (test code Red Blood Cells -1, = 25) Leukored Unit number (test code = [id number] 7442598) Product code (test code V0136G82 = 3092) Dispense status (test Transfused code = 24) Blood expiration date (test code = 302) Blood type code (test code = 308) Blood type (test code = B POSITIVE 1314) Compatibility (test code Compatible = 6400) [facility] Jjcva0923-46-86 22:22:00 Test Item Value Reference Range Interpretation Comments Product name (test code Red Blood Cells -1, = 25) Leukored Unit number (test code = [id number] 7683431) Product code (test code G3536D44 = 3092) Dispense status (test Transfused code = 24) Blood expiration date (test code = 302) Blood type code (test code = 308) Blood type (test code = B POSITIVE 1314) Compatibility (test code Compatible = 6400) [facility], 1 Wihod2232-29-03 22:22:00 Test Item Value Reference Range Interpretation Comments Product name (test code Red Blood Cells -1, = 25) Leukored Unit number (test code = [id number] 7852586) Product code (test code F6860V24 = 3092) Dispense status (test Transfused code = 24) Blood expiration date (test code = 302) Blood type code (test code = 308) Blood type (test code = B POSITIVE 1314) Compatibility (test code Compatible = 6400) [facility], 1 Hktil9043-14-29 22:22:00 Test Item Value Reference Range Interpretation Comments Product name (test code Red Blood Cells -1, = 25) Leukored Unit number (test code = [id number] 2275110) Product code (test code I3158U26 = 3092) Dispense status (test Transfused code = 24) Blood expiration date (test code = 302) Blood type code (test code = 308) Blood type (test code = B POSITIVE 1314) Compatibility (test code Compatible = 6400) [facility], 1 Nczvj7258-71-70 22:22:00 Test Item Value Reference Range Interpretation Comments Product name (test code Red Blood Cells -1, = 25) Leukored Unit number (test code = [id number] 2001665) Product code (test code D4572X71 = 3092) Dispense status (test Transfused code = 24) Blood expiration date (test code = 302) Blood type code (test code = 308) Blood type (test code = B POSITIVE 1314) Compatibility (test code Compatible = 6400) [facility], 1 Mvgcq1647-14-12 22:22:00 Test Item Value Reference Range Interpretation Comments Product name (test code Red Blood Cells -1, = 25) Leukored Unit number (test code = [id number] 1756649) Product code (test code X7611P85 = 3092) Dispense status (test Transfused code = 24) Blood expiration date (test code = 302) Blood type code (test code = 308) Blood type (test code = B POSITIVE 1314) Compatibility (test code Compatible = 6400) [facility] RBC, 1 Lijyj1325-54-50 22:22:00 Test Item Value Reference Range Interpretation Comments Product name (test code Red Blood Cells -1, = 25) Leukored Unit number (test code = [id number] 3299679) Product code (test code H4027O82 = 3092) Dispense status (test Transfused code = 24) Blood expiration date (test code = 302) Blood type code (test code = 308) Blood type (test code = B POSITIVE 1314) Compatibility (test code Compatible = 6400) [facility] 1 Puyrj7228-46-73 22:22:00 Test Item Value Reference Range Interpretation Comments Product name (test code Red Blood Cells -1, = 25) Leukored Unit number (test code = [id number] 9459586) Product code (test code S3549Q18 = 3092) Dispense status (test Transfused code = 24) Blood expiration date (test code = 302) Blood type code (test code = 308) Blood type (test code = B POSITIVE 1314) Compatibility (test code Compatible = 6400) [facility] pjtubce1490-24-55 20:10:46 Test Item Value Reference Range Interpretation Comments Case number (test code = [id number]) Surgical pathology See link below for report (test code = PDF Lab Report 2254) Result status (test code This is Final Report = 7230466) for [address] pathology sambvhd3993-86-62 20:10:46 Test Item Value Reference Range Interpretation Comments Case number (test code = [id number]) Surgical pathology See link below for report (test code = PDF Lab Report 2255) Result status (test code This is Final Report = 2408067) for [address] pathology icelsyc7004-80-18 20:10:46 Test Item Value Reference Range Interpretation Comments Case number (test code = [id number]) Surgical pathology See link below for report (test code = PDF Lab Report 2255) Result status (test code This is Final Report = 0278840) for [address] pathology inbbdnc9192-70-48 20:10:46 Test Item Value Reference Range Interpretation Comments Case number (test code = [id number]) Surgical pathology See link below for report (test code = PDF Lab Report 2255) Result status (test code This is Final Report = 3292705) for [address] pathology vkwdnnb0003-16-84 20:10:46 Test Item Value Reference Range Interpretation Comments Case number (test code = [id number]) Surgical pathology See link below for report (test code = PDF Lab Report 2255) Result status (test code This is Final Report = 8205681) for [address] pathology stoesha3335-88-04 20:10:46 Test Item Value Reference Range Interpretation Comments Case number (test code = [id number]) Surgical pathology See link below for report (test code = PDF Lab Report 2255) Result status (test code This is Final Report = 6230475) for [address] pathology byyznvj5761-70-15 20:10:46 Test Item Value Reference Range Interpretation Comments Case number (test code = [id number]) Surgical pathology See link below for report (test code = PDF Lab Report 2255) Result status (test code This is Final Report = 7084254) for [address] pathology xrimqsr1744-02-39 20:10:46 Test Item Value Reference Range Interpretation Comments Case number (test code = [id number]) Surgical pathology See link below for report (test code = PDF Lab Report 2255) Result status (test code This is Final Report = 6013200) for [id number] [facility] pathology llgtekh9940-41-04 20:10:46 Test Item Value Reference Range Interpretation Comments Case number (test code = [id number]) Surgical pathology See link below for report (test code = PDF Lab Report 2255) Result status (test code This is Final Report = 5387061) for [id number] [facility] pathology kdwzkfh4936-19-45 20:10:46 Test Item Value Reference Range Interpretation Comments Case number (test code = [id number]) Surgical pathology See link below for report (test code = PDF Lab Report 2255) Result status (test code This is Final Report = 8558369) for [id number] [facility], 1 Eouse5640-34-30 15:35:00 Test Item Value Reference Range Interpretation Comments Product name (test code Platerick tAph LR, Path = 25) Red cont3 Unit number (test code = [id number] 5846379) Product code (test code O8152E46 = 3092) Dispense status (test Transfused code = 24) Blood expiration date (test code = 302) Blood type code (test code = 308) Blood type (test code = O POSITIVE 1314) Compatibility (test code Not required = 6400) [facility] 1 Lxzfz3337-12-99 15:35:00 Test Item Value Reference Range Interpretation Comments Product name (test code Platele tAph LR, Path = 25) Red cont3 Unit number (test code = [id number] 2033973) Product code (test code E5004S97 = 3092) Dispense status (test Transfused code = 24) Blood expiration date (test code = 302) Blood type code (test code = 308) Blood type (test code = O POSITIVE 1314) Compatibility (test code Not required = 6400) [facility], 1 Zsvmw4960-78-95 15:35:00 Test Item Value Reference Range Interpretation Comments Product name (test code Platele tAph LR, Path = 25) Red cont3 Unit number (test code = [id number] 2183734) Product code (test code Y3615N37 = 3092) Dispense status (test Transfused code = 24) Blood expiration date (test code = 302) Blood type code (test code = 308) Blood type (test code = O POSITIVE 1314) Compatibility (test code Not required = 6400) [facility], 1 Nulbi8619-34-92 15:35:00 Test Item Value Reference Range Interpretation Comments Product name (test code Bogdan Henley LR, Path = 25) Red cont3 Unit number (test code = [id number] 5265855) Product code (test code S1986C51 = 3092) Dispense status (test Transfused code = 24) Blood expiration date (test code = 302) Blood type code (test code = 308) Blood type (test code = O POSITIVE 1314) Compatibility (test code Not required = 6400) [facility], 1 Hiveu8225-80-48 15:35:00 Test Item Value Reference Range Interpretation Comments Product name (test code Bogdan Henley LR, Path = 25) Red cont3 Unit number (test code = [id number] 6224849) Product code (test code I3373K02 = 3092) Dispense status (test Transfused code = 24) Blood expiration date (test code = 302) Blood type code (test code = 308) Blood type (test code = O POSITIVE 1314) Compatibility (test code Not required = 6400) [facility], 1 Kiwux8332-19-19 15:35:00 Test Item Value Reference Range Interpretation Comments Product name (test code Bogdan Henley LR, Path = 25) Red cont3 Unit number (test code = [id number] 3260323) Product code (test code H6693L05 = 3092) Dispense status (test Transfused code = 24) Blood expiration date (test code = 302) Blood type code (test code = 308) Blood type (test code = O POSITIVE 1314) Compatibility (test code Not required = 6400) [facility], 1 Mjkoq8875-37-61 15:35:00 Test Item Value Reference Range Interpretation Comments Product name (test code Platerick tAp LR, Path = 25) Red cont3 Unit number (test code = [id number] 1927504) Product code (test code I0402M97 = 3092) Dispense status (test Transfused code = 24) Blood expiration date (test code = 302) Blood type code (test code = 308) Blood type (test code = O POSITIVE 1314) Compatibility (test code Not required = 6400) [facility], 1 Ixcsl0083-65-90 15:35:00 Test Item Value Reference Range Interpretation Comments Product name (test code Bogdan Henley ZULEYKA, Path = 25) Red cont3 Unit number (test code = [id number] 0955837) Product code (test code L9738J92 = 3092) Dispense status (test Transfused code = 24) Blood expiration date (test code = 302) Blood type code (test code = 308) Blood type (test code = O POSITIVE 1314) Compatibility (test code Not required = 6400) [facility], 1 Mntye7748-76-97 15:35:00 Test Item Value Reference Range Interpretation Comments Product name (test code Bogdan Henley ZULEYKA, Path = 25) Red cont3 Unit number (test code = [id number] 9207910) Product code (test code Q5029U60 = 3092) Dispense status (test Transfused code = 24) Blood expiration date (test code = 302) Blood type code (test code = 308) Blood type (test code = O POSITIVE 1314) Compatibility (test code Not required = 6400) [facility], 1 Ytcnf9045-92-86 15:35:00 Test Item Value Reference Range Interpretation Comments Product name (test code Bogdan Henley ZULEYKA, Path = 25) Red cont3 Unit number (test code = [id number] 5237015) Product code (test code L0453P71 = 3092) Dispense status (test Transfused code = 24) Blood expiration date (test code = 302) Blood type code (test code = 308) Blood type (test code = O POSITIVE 1314) Compatibility (test code Not required = 6400) [facility] ehfx6421-37-67 12:13:24 Test Item Value Reference Range Interpretation Comments Activated clotting time See_Comment H Oper ator Name: (test code = 5298) Bryn R eneaDevice ID: [id number] [Automated mess age] The system [employer] generated this result transmitted ref erence range: 96 - 152 sec. The reference r leo was not used to interpret this result as normal/abnor mal. Lab Interpretation (test Abnormal code = 37514-6) [facility] ukjh0013-04-30 12:13:24 Test Item Value Reference Range Interpretation Comments Activated clotting time See_Comment H Oper ator Name: (test code = 5298) Bryn R eneaDevice ID: [id number] [Automated mess age] The system [employer] generated this result transmitted ref erence range: 96 - 152 sec. The reference r leo was not used to interpret this result as normal/abnor mal. Lab Interpretation (test Abnormal code = 36890-5) [facility] ppbb9485-64-89 12:13:24 Test Item Value Reference Range Interpretation Comments Activated clotting time See_Comment H Oper ator Name: (test code = 5298) Bryn R eneaDevice ID: [id number] [Automated mess age] The system [employer] generated this result transmitted ref erence range: 96 - 152 sec. The reference r leo was not used to interpret this result as normal/abnor mal. Lab Interpretation (test Abnormal code = 04473-8) [facility] arqg8008-21-34 12:13:24 Test Item Value Reference Range Interpretation Comments Activated clotting time See_Comment H Oper ator Name: (test code = 5298) Bryn R eneaDevice ID: [id number] [Automated mess age] The system [employer] generated this result transmitted ref erence range: 96 - 152 sec. The reference r leo was not used to interpret this result as normal/abnor mal. Lab Interpretation (test Abnormal code = 69115-5) [facility] cxny5230-52-77 12:13:24 Test Item Value Reference Range Interpretation Comments Activated clotting time See_Comment H Oper ator Name: (test code = 5298) Bryn R eneaDevice ID: [id number] [Automated mess age] The system [employer] generated this result transmitted ref erence range: 96 - 152 sec. The reference r leo was not used to interpret this result as normal/abnor mal. Lab Interpretation (test Abnormal code = 99742-8) [facility] jxun1615-78-07 12:13:24 Test Item Value Reference Range Interpretation Comments Activated clotting time See_Comment H Oper ator Name: (test code = 5298) Bryn Eduin eneaDevice ID: [id number] [Automated mess age] The system [employer] generated this result transmitted ref erence range: 96 - 152 sec. The reference r leo was not used to interpret this result as normal/abnor mal. Lab Interpretation (test Abnormal code = 00797-4) [facility] kkdv9942-49-89 12:13:24 Test Item Value Reference Range Interpretation Comments Activated clotting time See_Comment H Oper ator Name: (test code = 5298) Bryn R eneaDevice ID: [id number] [Automated mess age] The system [employer] generated this result transmitted ref erence range: 96 - 152 sec. The reference r leo was not used to interpret this result as normal/abnor mal. Lab Interpretation (test Abnormal code = 24350-5) [facility] mtid9106-94-12 12:13:24 Test Item Value Reference Range Interpretation Comments Activated clotting time See_Comment H Oper ator Name: (test code = 5298) Bryn Eduin eneaDevice ID: [id number] [Automated mess age] The system [employer] generated this result transmitted ref erence range: 96 - 152 sec. The reference r leo was not used to interpret this result as normal/abnor mal. Lab Interpretation (test Abnormal code = 05219-6) [facility] uten6746-82-26 12:13:24 Test Item Value Reference Range Interpretation Comments Activated clotting time See_Comment H Oper ator Name: (test code = 5298) Bryn R eneaDevice ID: [id number] [Automated mess age] The system [employer] generated this result transmitted ref erence range: 96 - 152 sec. The reference r leo was not used to interpret this result as normal/abnor mal. Lab Interpretation (test Abnormal code = 45400-1) [facility] owgf8385-14-28 12:13:24 Test Item Value Reference Range Interpretation Comments Activated clotting time See_Comment H Oper ator Name: (test code = 5298) Bryn Denny Carmen ID: [id number] [Automated mess age] The system [employer] generated this result transmitted ref erence range: 96 - 152 sec. The reference r leo was not used to interpret this result as normal/abnor mal. Lab Interpretation (test Abnormal code = 51392-2) [facility] cayic7234-90-64 14:37:48 Test Item Value Reference Range Interpretation Comments POC sodium (test code = 138 mmol/L 687-556 3980-0) POC potassium (test 5.5 mmol/L 3.5-5 H code = 6298-4) POC glucose (test code 295 mg/dL 65-99 H = 2339-0) POC creatinine (test 5.3 mg/dl 0.5-0.9 H Operato r Name: Pugne code = 88039-6) [place] ID: [id number] POC hemoglobin (test 18.4 g/dL 12-16 H code = 718-7) POC hematocrit (test 54 % 37-47 H code = 4544-3) Lab Interpretation Abnormal (test code = 64070-5) [facility] [id number] 14:37:48 Test Item Value Reference Range Interpretation Comments POC sodium (test code = 138 mmol/L 033-832 1555-0) POC potassium (test 5.5 mmol/L 3.5-5 H code = 6298-4) POC glucose (test code 295 mg/dL 65-99 H = 2339-0) POC creatinine (test 5.3 mg/dl 0.5-0.9 H Operato r Name: Pugne code = 13141-6) AileenDevice ID: [id number] POC hemoglobin (test 18.4 g/dL 12-16 H code = 718-7) POC hematocrit (test 54 % 37-47 H code = 4544-3) Lab Interpretation Abnormal (test code = 32794-3) [facility]2021-11-29 14:37:48 Test Item Value Reference Range Interpretation Comments POC sodium (test code = 138 mmol/L 482-609 9172-0) POC potassium (test 5.5 mmol/L 3.5-5 H code = 6298-4) POC glucose (test code 295 mg/dL 65-99 H = 2339-0) POC creatinine (test 5.3 mg/dl 0.5-0.9 H Operato r Name: Pugne code = 29319-4) [employer] ID: [id number] POC hemoglobin (test 18.4 g/dL 12-16 H code = 718-7) POC hematocrit (test 54 % 37-47 H code = 4544-3) Lab Interpretation Abnormal (test code = 30275-7) [facility]2021-11-29 14:37:48 Test Item Value Reference Range Interpretation Comments POC sodium (test code = 138 mmol/L 947-067 1975-0) POC potassium (test 5.5 mmol/L 3.5-5 H code = 6298-4) POC glucose (test code 295 mg/dL 65-99 H = 2339-0) POC creatinine (test 5.3 mg/dl 0.5-0.9 H Operato r Name: Pugne code = 52616-9) [employer] ID: [id number] POC hemoglobin (test 18.4 g/dL 12-16 H code = 718-7) POC hematocrit (test 54 % 37-47 H code = 4544-3) Lab Interpretation Abnormal (test code = 98039-7) [facility]2021-11-29 14:37:48 Test Item Value Reference Range Interpretation Comments POC sodium (test code = 138 mmol/L 965-731 3869-0) POC potassium (test 5.5 mmol/L 3.5-5 H code = 6298-4) POC glucose (test code 295 mg/dL 65-99 H = 2339-0) POC creatinine (test 5.3 mg/dl 0.5-0.9 H Operato r Name: Pugne code = 97467-2) [employer] ID: [id number] POC hemoglobin (test 18.4 g/dL 12-16 H code = 718-7) POC hematocrit (test 54 % 37-47 H code = 4544-3) Lab Interpretation Abnormal (test code = 47286-5) [place] 042281-11-29 14:37:48 Test Item Value Reference Range Interpretation Comments POC sodium (test code = 138 mmol/L 859-599 9965-0) POC potassium (test 5.5 mmol/L 3.5-5.0 H code = 6298-4) POC glucose (test code 295 mg/dL 65-99 H = 2339-0) POC creatinine (test 5.3 mg/dl 0.5-0.9 H Operato r Name: Pugne code = 01836-6) AiljoshDevice ID: [id number] POC hemoglobin (test 18.4 g/dL 12.0-16.0 H code = 718-7) POC hematocrit (test 54 % 37-47 H code = 4544-3) Lab Interpretation Abnormal (test code = 33704-5) [facility]2021-11-29 14:37:48 Test Item Value Reference Range Interpretation Comments POC sodium (test code = 138 mmol/L 464-717 6516-0) POC potassium (test 5.5 mmol/L 3.5-5.0 H code = 6298-4) POC glucose (test code 295 mg/dL 65-99 H = 2339-0) POC creatinine (test 5.3 mg/dl 0.5-0.9 H Operato r Name: Pugne code = 20959-5) [employer]iljoshDevice ID: [id number] POC hemoglobin (test 18.4 g/dL 12.0-16.0 H code = 718-7) POC hematocrit (test 54 % 37-47 H code = 4544-3) Lab Interpretation Abnormal (test code = 89211-2) [facility]2021-11-29 14:37:48 Test Item Value Reference Range Interpretation Comments POC sodium (test code = 138 mmol/L 914-647 6300-0) POC potassium (test 5.5 mmol/L 3.5-5 H code = 6298-4) POC glucose (test code 295 mg/dL 65-99 H = 2339-0) POC creatinine (test 5.3 mg/dl 0.5-0.9 H Operato r Name: Pugne code = 13198-1) AiljoshDevice ID: [id number] POC hemoglobin (test 18.4 g/dL 12-16 H code = 718-7) POC hematocrit (test 54 % 37-47 H code = 4544-3) Lab Interpretation Abnormal (test code = 29270-8) [facility] wlsal8022-07-38 14:37:48 Test Item Value Reference Range Interpretation Comments POC sodium (test code = 138 mmol/L 773-750 6392-0) POC potassium (test 5.5 mmol/L 3.5-5 H code = 6298-4) POC glucose (test code 295 mg/dL 65-99 H = 2339-0) POC creatinine (test 5.3 mg/dl 0.5-0.9 [facility] [employer] ID: [id number] POC hemoglobin (test 18.4 g/dL 12-16 H code = 718-7) POC hematocrit (test 54 % 37-47 H code = 4544-3) Lab Interpretation Abnormal (test code = 83792-2) [facility]2021-11-29 14:37:48 Test Item Value Reference Range Interpretation Comments POC sodium (test code = 138 mmol/L 924-599 1860-0) POC potassium (test 5.5 mmol/L 3.5-5 H code = 6298-4) POC glucose (test code 295 mg/dL 65-99 H = 2339-0) POC creatinine (test 5.3 mg/dl 0.5-0.9 H [facility] code = 35331-3) [employer] ID: [id number] POC hemoglobin (test 18.4 g/dL 12-16 H code = 718-7) POC hematocrit (test 54 % 37-47 H code = 4544-3) Lab Interpretation Abnormal (test code = 30102-7) 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 (test code = 97976-9) Whether the patient has symptoms related to condition of interest (test code = 30847-2) Patient was hospitalized because of this condition (test code = 86459-0) Whether the patient was admitted to intensive care unit (ICU) for condition of interest (test code = 76173-5) Whether patient resides in a congregate care setting (test code = 66995-0) [facility]2021-08-11 08:17:00 Test Item Value Reference Range Interpretation Comments Glucose Lvl (test code = Glucose Lvl) 94 70-99 [place] 587801-08-11 08:17:00 Test Item Value Reference Range Interpretation Comments BUN (test code = BUN) 27 7-22 [place] 587801-08-11 08:17:00 Test Item Value Reference Range Interpretation Comments Creatinine Lvl (test code = Creatinine 4.95 0.50-1.40 Lvl) [place] 587801-08-11 08:17:00 Test Item Value Reference Range Interpretation Comments Sodium Lvl (test code = Sodium Lvl) 136 135-145 [place] 587801-08-11 08:17:00 Test Item Value Reference Range Interpretation Comments Potassium Lvl (test code = Potassium 3.9 3.5-5.1 Lvl) [place] 587801-08-11 08:17:00 Test Item Value Reference Range Interpretation Comments Chloride Lvl (test code = Chloride Lvl) 103 95-109 [place] 587801-08-11 08:17:00 Test Item Value Reference Range Interpretation Comments CO2 (test code = CO2) 30 24-32 [place] 587801-08-11 08:17:00 Test Item Value Reference Range Interpretation Comments AGAP (test code = AGAP) 6.9 10.0-20.0 [place] 587801-08-11 08:17:00 Test Item Value Reference Range Interpretation Comments Calcium Lvl (test code = Calcium Lvl) 8.5 8.5-10.5 [place] 587801-08-11 08:17:00 Test Item Value Reference Range Interpretation Comments eGFR (test code = eGFR) 10 [place] 587801-08-11 08:17:00 Test Item Value Reference Range Interpretation Comments Phosphorus (test code = Phosphorus) 3.0 2.5-4.5 [facility]2021-08-11 08:17:00 Test Item Value Reference Range Interpretation Comments Magnesium Lvl (test code = Magnesium 2.4 1.8-2.4 Lvl) [facility]34[facility] 08:17:00 Test Item Value Reference Range Interpretation Comments WBC (test code = WBC) 2.3 3.7-10.4 [facility] HospitalCzsuhrhLDXLLZQURF9191-18-97 08:17:00 Test Item Value Reference Range Interpretation Comments RBC (test code = RBC) 2.65 4.20-5.40 [facility] HospitalMtdhwysVIIFIIPREV9325-25-01 08:17:00 Test Item Value Reference Range Interpretation Comments Hgb (test code = Hgb) 7.9 12.0-16.0 [facility] HospitalHjgsdxvRQGWKCYSLD4596-10-95 08:17:00 Test Item Value Reference Range Interpretation Comments Hct (test code = Hct) 24.0 36.0-48.0 [facility] HospitalSquaeauEHFZVZABAQ0463-52-39 08:17:00 Test Item Value Reference Range Interpretation Comments MCV (test code = MCV) 90.6 80.0-98.0 [facility] HospitalNdhczwzSGKXPSNMBZ4234-46-90 08:17:00 Test Item Value Reference Range Interpretation Comments MCH (test code = MCH) 29.7 pg 27.0-31.0 [facility] HospitalHqdexfaZESPYEJHUQ5331-30-94 08:17:00 Test Item Value Reference Range Interpretation Comments MCHC (test code = MCHC) 32.7 32.0-36.0 [facility] HospitalSopbosgCPPCABXVOO7593-80-18 08:17:00 Test Item Value Reference Range Interpretation Comments RDW (test code = RDW) 19.1 11.5-14.5 [place] 846251-08-11 08:17:00 Test Item Value Reference Range Interpretation Comments Platelet (test code = Platelet) 71 133-450 [facility] HospitalAxeundrRHWSYTLWHQ7522-07-90 08:17:00 Test Item Value Reference Range Interpretation Comments MPV (test code = MPV) 9.9 7.4-10.4 [facility] HospitalLzkgoxsKRSZEUYQAC8414-25-91 08:17:00 Test Item Value Reference Range Interpretation Comments Segs (test code = Segs) 56.1 45.0-75.0 [place] 846251-08-11 08:17:00 Test Item Value Reference Range Interpretation Comments Lymphocytes (test code = Lymphocytes) 28.9 20.0-40.0 [place] 846251-08-11 08:17:00 Test Item Value Reference Range Interpretation Comments Monocytes (test code = Monocytes) 8.1 2.0-12.0 [place] 846251-08-11 08:17:00 Test Item Value Reference Range Interpretation Comments Eosinophils (test code = 5.9 See_Comment [A utomated message] The Eosinophils) system which ge nerated this result tra nsmitted reference range : <=4.0. The reference r leo was not used to int erpret this result as normal/abnormal . [place] 846251-08-11 08:17:00 Test Item Value Reference Range Interpretation Comments Basophils (test code = 1.0 See_Comment [Aut omated message] The Basophils) system which ge nerated this result tra nsmitted reference range : <=1.0. The reference r leo was not used to int erpret this result as normal/abnormal . [facility] HospitalYljpjslJENMKGQZKH4702-59-17 08:17:00 Test Item Value Reference Range Interpretation Comments Neutrophils # (test code = Neutrophils 1.3 1.5-8.1 #) [facility] HospitalBllhschZCDDDDDPRL1851-67-70 08:17:00 Test Item Value Reference Range Interpretation Comments Lymphocytes # (test code = Lymphocytes 0.7 1.0-5.5 #) [facility] HospitalAxhgtdhWVNHSVKARE9128-36-11 08:17:00 Test Item Value Reference Range Interpretation Comments Monocytes # (test code 0.2 See_Comment [Aut omated message] The = Monocytes #) system which generated this result tra nsmitted reference range : <=0.8. The reference r leo was not used to int erpret this result as normal/abnormal . [place] 846251-08-11 08:17:00 Test Item Value Reference Range Interpretation Comments Eosinophils # (test code 0.1 See_Comment [A utomated message] The = Eosinophils #) system whic h generated this result tra nsmitted reference range : <=0.5. The reference r leo was not used to int erpret this result as normal/abnormal . [facility]2021-08-11 08:17:00 Test Item Value Reference Range Interpretation Comments Glucose Lvl (test code = Glucose Lvl) 94 70-99 [place] 587801-08-11 08:17:00 Test Item Value Reference Range Interpretation Comments BUN (test code = BUN) 27 7-22 [place] 587801-08-11 08:17:00 Test Item Value Reference Range Interpretation Comments Creatinine Lvl (test code = Creatinine 4.95 0.50-1.40 Lvl) [place] 587801-08-11 08:17:00 Test Item Value Reference Range Interpretation Comments Sodium Lvl (test code = Sodium Lvl) 136 135-145 [place] 587801-08-11 08:17:00 Test Item Value Reference Range Interpretation Comments Potassium Lvl (test code = Potassium 3.9 3.5-5.1 Lvl) [place] 587801-08-11 08:17:00 Test Item Value Reference Range Interpretation Comments Chloride Lvl (test code = Chloride Lvl) 103 95-109 [place] 587801-08-11 08:17:00 Test Item Value Reference Range Interpretation Comments CO2 (test code = CO2) 30 24-32 [place] 587801-08-11 08:17:00 Test Item Value Reference Range Interpretation Comments AGAP (test code = AGAP) 6.9 10.0-20.0 [facility]2021-08-11 08:17:00 Test Item Value Reference Range Interpretation Comments Calcium Lvl (test code = Calcium Lvl) 8.5 8.5-10.5 [facility]2021-08-11 08:17:00 Test Item Value Reference Range Interpretation Comments eGFR (test code = eGFR) 10 [place] 587801-08-11 08:17:00 Test Item Value Reference Range Interpretation Comments Phosphorus (test code = Phosphorus) 3.0 2.5-4.5 [place] 587801-08-11 08:17:00 Test Item Value Reference Range Interpretation Comments Magnesium Lvl (test code = Magnesium 2.4 1.8-2.4 Lvl) [place] 846251-08-11 08:17:00 Test Item Value Reference Range Interpretation Comments WBC (test code = WBC) 2.3 3.7-10.4 [place] 846251-08-11 08:17:00 Test Item Value Reference Range Interpretation Comments RBC (test code = RBC) 2.65 4.20-5.40 [place] 846251-08-11 08:17:00 Test Item Value Reference Range Interpretation Comments Hgb (test code = Hgb) 7.9 12.0-16.0 [place] 846251-08-11 08:17:00 Test Item Value Reference Range Interpretation Comments Hct (test code = Hct) 24.0 36.0-48.0 [facility] HospitalFzadhcuZOGXPQHQPM1264-37-78 08:17:00 Test Item Value Reference Range Interpretation Comments MCV (test code = MCV) 90.6 80.0-98.0 [facility] HospitalAxkqmvaNLZGBFLUSF5164-50-75 08:17:00 Test Item Value Reference Range Interpretation Comments MCH (test code = MCH) 29.7 pg 27.0-31.0 [facility] HospitalTsqwvuqMXGKQBFBWB9388-56-26 08:17:00 Test Item Value Reference Range Interpretation Comments MCHC (test code = MCHC) 32.7 32.0-36.0 [facility] HospitalMpwhxptBWHTKJEZSD6101-39-34 08:17:00 Test Item Value Reference Range Interpretation Comments RDW (test code = RDW) 19.1 11.5-14.5 [facility] HospitalCbqpnbuRQAQMZDVCJ6230-43-39 08:17:00 Test Item Value Reference Range Interpretation Comments Platelet (test code = Platelet) 71 133-450 [facility] HospitalJiasnsmXXGSZQIUXX2632-53-35 08:17:00 Test Item Value Reference Range Interpretation Comments MPV (test code = MPV) 9.9 7.4-10.4 [place] 846251-08-11 08:17:00 Test Item Value Reference Range Interpretation Comments Segs (test code = Segs) 56.1 45.0-75.0 [place] 846251-08-11 08:17:00 Test Item Value Reference Range Interpretation Comments Lymphocytes (test code = Lymphocytes) 28.9 20.0-40.0 [place] 846251-08-11 08:17:00 Test Item Value Reference Range Interpretation Comments Monocytes (test code = Monocytes) 8.1 2.0-12.0 [place] 846251-08-11 08:17:00 Test Item Value Reference Range Interpretation Comments Eosinophils (test code = 5.9 See_Comment [A utomated message] The Eosinophils) system which ge nerated this result tra nsmitted reference range : <=4.0. The reference r leo was not used to int erpret this result as normal/abnormal . [place] 846251-08-11 08:17:00 Test Item Value Reference Range Interpretation Comments Basophils (test code = 1.0 See_Comment [Aut omated message] The Basophils) system which ge nerated this result tra nsmitted reference range : <=1.0. The reference r leo was not used to int erpret this result as normal/abnormal . [facility] HospitalVzkuvsnPBIGBECGNG3007-58-53 08:17:00 Test Item Value Reference Range Interpretation Comments Neutrophils # (test code = Neutrophils 1.3 1.5-8.1 #) [place] 846251-08-11 08:17:00 Test Item Value Reference Range Interpretation Comments Lymphocytes # (test code = Lymphocytes 0.7 1.0-5.5 #) [place] 846251-08-11 08:17:00 Test Item Value Reference Range Interpretation Comments Monocytes # (test code 0.2 See_Comment [Aut omated message] The = Monocytes #) system which generated this result tra nsmitted reference range : <=0.8. The reference r leo was not used to int erpret this result as normal/abnormal . [place] 846251-08-11 08:17:00 Test Item Value Reference Range Interpretation Comments Eosinophils # (test code 0.1 See_Comment [A utomated message] The = Eosinophils #) system whic h generated this result tra nsmitted reference range : <=0.5. The reference r leo was not used to int erpret this result as normal/abnormal . [facility] YIIJZ0003-80-59 09:30:00 Test Item Value Reference Range Interpretation Comments Glucose Lvl (test code = Glucose Lvl) 61 70-99 [facility] GVSAR9320-44-67 09:30:00 Test Item Value Reference Range Interpretation Comments BUN (test code = BUN) 13 7-22 [facility] OHSDW4500-78-70 09:30:00 Test Item Value Reference Range Interpretation Comments Creatinine Lvl (test code = Creatinine 3.71 0.50-1.40 Lvl) [place] 587801-08-10 09:30:00 Test Item Value Reference Range Interpretation Comments Sodium Lvl (test code = Sodium Lvl) 136 135-145 [place] 587801-08-10 09:30:00 Test Item Value Reference Range Interpretation Comments Potassium Lvl (test code = Potassium 4.3 3.5-5.1 Lvl) [place] 587801-08-10 09:30:00 Test Item Value Reference Range Interpretation Comments Chloride Lvl (test code = Chloride Lvl) 103 95-109 [place] 587801-08-10 09:30:00 Test Item Value Reference Range Interpretation Comments CO2 (test code = CO2) 27 24-32 [place] 587801-08-10 09:30:00 Test Item Value Reference Range Interpretation Comments Calcium Lvl (test code = Calcium Lvl) 7.9 8.5-10.5 [place] 587801-08-10 09:30:00 Test Item Value Reference Range Interpretation Comments AGAP (test code = AGAP) 10.3 10.0-20.0 [place] 587801-08-10 09:30:00 Test Item Value Reference Range Interpretation Comments eGFR (test code = eGFR) 15 [place] 587801-08-10 09:30:00 Test Item Value Reference Range Interpretation Comments Magnesium Lvl (test code = Magnesium 2.3 1.8-2.4 Lvl) [place] 587801-08-10 09:30:00 Test Item Value Reference Range Interpretation Comments Phosphorus (test code = Phosphorus) 3.1 2.5-4.5 [place] 846251-08-10 09:30:00 Test Item Value Reference Range Interpretation Comments Segs (test code = Segs) 61.5 45.0-75.0 [place] 00903-08-10 09:30:00 Test Item Value Reference Range Interpretation Comments Lymphocytes (test code = Lymphocytes) 24.6 20.0-40.0 [place] 00[address]-08-10 09:30:00 Test Item Value Reference Range Interpretation Comments Monocytes (test code = Monocytes) 7.4 2.0-12.0 [place] 00[address]-08-10 09:30:00 Test Item Value Reference Range Interpretation Comments Eosinophils (test code = 5.5 See_Comment [A utomated message] The Eosinophils) system which ge nerated this result tra nsmitted reference range : <=4.0. The reference r leo was not used to int erpret this result as normal/abnormal . [place] 846251-08-10 09:30:00 Test Item Value Reference Range Interpretation Comments Basophils (test code = 1.0 See_Comment [Aut omated message] The Basophils) system which ge nerated this result tra nsmitted reference range : <=1.0. The reference r leo was not used to int erpret this result as normal/abnormal . [place] 846251-08-10 09:30:00 Test Item Value Reference Range Interpretation Comments Neutrophils # (test code = Neutrophils 1.6 1.5-8.1 #) [facility] HospitalMjunsqgNFLVKXJNRA6186-49-27 09:30:00 Test Item Value Reference Range Interpretation Comments Lymphocytes # (test code = Lymphocytes 0.6 1.0-5.5 #) [facility] HospitalYeoupwnIGXQDBXIQN4092-28-38 09:30:00 Test Item Value Reference Range Interpretation Comments Monocytes # (test code 0.2 See_Comment [Aut omated message] The = Monocytes #) system which generated this result tra nsmitted reference range : <=0.8. The reference r leo was not used to int erpret this result as normal/abnormal . [facility] HospitalAeqmfitFFQTWKISIZ6107-74-98 09:30:00 Test Item Value Reference Range Interpretation Comments Eosinophils # (test code 0.1 See_Comment [A utomated message] The = Eosinophils #) system [facility] generated this result tra nsmitted reference range : <=0.5. The reference r leo was not used to int erpret this result as normal/abnormal . [facility] HospitalUgpfzbwJGTUTOWDYB4706-15-29 09:30:00 Test Item Value Reference Range Interpretation [...] studies, if clinically indicated, are recommended. CPT: 59941 [facility] HospitalPqnrnyjPBHSULQDEI9003-43-66 09:30:00 Test Item Value Reference Range Interpretation Comments WBC (test code = WBC) 2.5 3.7-10.4 [place] 846251-08-10 09:30:00 Test Item Value Reference Range Interpretation Comments RBC (test code = RBC) 2.68 4.20-5.40 [place] 846251-08-10 09:30:00 Test Item Value Reference Range Interpretation Comments Hgb (test code = Hgb) 8.2 12.0-16.0 [place] 00903-08-10 09:30:00 Test Item Value Reference Range Interpretation Comments Hct (test code = Hct) 24.3 36.0-48.0 [place] 846251-08-10 09:30:00 Test Item Value Reference Range Interpretation Comments MCV (test code = MCV) 90.9 80.0-98.0 [place] 00[address]-08-10 09:30:00 Test Item Value Reference Range Interpretation Comments MCH (test code = MCH) 30.5 pg 27.0-31.0 [facility] HospitalBklfzpuLYHOVDPLQP8773-86-25 09:30:00 Test Item Value Reference Range Interpretation Comments MCHC (test code = MCHC) 33.6 32.0-36.0 [facility] HospitalHlhbyokTXNHWYWFEF2167-98-05 09:30:00 Test Item Value Reference Range Interpretation Comments RDW (test code = RDW) 19.4 11.5-14.5 [place] 846251-08-10 09:30:00 Test Item Value Reference Range Interpretation Comments Platelet (test code = Platelet) 70 133-450 [facility] HospitalHmoultvKIGKHPLGWQ8325-64-20 09:30:00 Test Item Value Reference Range Interpretation Comments MPV (test code = MPV) 10.7 7.4-10.4 [facility]2021-08-10 09:30:00 Test Item Value Reference Range Interpretation Comments Glucose Lvl (test code = Glucose Lvl) 61 70-99 [facility]2021-08-10 09:30:00 Test Item Value Reference Range Interpretation Comments BUN (test code = BUN) 13 7-22 [place] 587801-08-10 09:30:00 Test Item Value Reference Range Interpretation Comments Creatinine Lvl (test code = Creatinine 3.71 0.50-1.40 Lvl) [place] 587801-08-10 09:30:00 Test Item Value Reference Range Interpretation Comments Sodium Lvl (test code = Sodium Lvl) 136 135-145 [place] 587801-08-10 09:30:00 Test Item Value Reference Range Interpretation Comments Potassium Lvl (test code = Potassium 4.3 3.5-5.1 Lvl) [place] 587801-08-10 09:30:00 Test Item Value Reference Range Interpretation Comments Chloride Lvl (test code = Chloride Lvl) 103 95-109 [place] 587801-08-10 09:30:00 Test Item Value Reference Range Interpretation Comments CO2 (test code = CO2) 27 24-32 [place] 587801-08-10 09:30:00 Test Item Value Reference Range Interpretation Comments Calcium Lvl (test code = Calcium Lvl) 7.9 8.5-10.5 [place] 587801-08-10 09:30:00 Test Item Value Reference Range Interpretation Comments AGAP (test code = AGAP) 10.3 10.0-20.0 [place] 587801-08-10 09:30:00 Test Item Value Reference Range Interpretation Comments eGFR (test code = eGFR) 15 [place] 587801-08-10 09:30:00 Test Item Value Reference Range Interpretation Comments Magnesium Lvl (test code = Magnesium 2.3 1.8-2.4 Lvl) [place] 587801-08-10 09:30:00 Test Item Value Reference Range Interpretation Comments Phosphorus (test code = Phosphorus) 3.1 2.5-4.5 [place] 846251-08-10 09:30:00 Test Item Value Reference Range Interpretation Comments Segs (test code = Segs) 61.5 45.0-75.0 [place] 846251-08-10 09:30:00 Test Item Value Reference Range Interpretation Comments Lymphocytes (test code = Lymphocytes) 24.6 20.0-40.0 [place] 846251-08-10 09:30:00 Test Item Value Reference Range Interpretation Comments Monocytes (test code = Monocytes) 7.4 2.0-12.0 [place] 846251-08-10 09:30:00 Test Item Value Reference Range Interpretation Comments Eosinophils (test code = 5.5 See_Comment [A utomated message] The Eosinophils) system which ge nerated this result tra nsmitted reference range : <=4.0. The reference r leo was not used to int erpret this result as normal/abnormal . [place] 846251-08-10 09:30:00 Test Item Value Reference Range Interpretation Comments Basophils (test code = 1.0 See_Comment [Aut omated message] The Basophils) system which ge nerated this result tra nsmitted reference range : <=1.0. The reference r leo was not used to int erpret this result as normal/abnormal . [place] 846251-08-10 09:30:00 Test Item Value Reference Range Interpretation Comments Neutrophils # (test code = Neutrophils 1.6 1.5-8.1 #) [place] 846251-08-10 09:30:00 Test Item Value Reference Range Interpretation Comments Lymphocytes # (test code = Lymphocytes 0.6 1.0-5.5 #) [place] 846251-08-10 09:30:00 Test Item Value Reference Range Interpretation Comments Monocytes # (test code 0.2 See_Comment [Aut omated message] The = Monocytes #) system which generated this result tra nsmitted reference range : <=0.8. The reference r leo was not used to int erpret this result as normal/abnormal . [place] 846251-08-10 09:30:00 Test Item Value Reference Range Interpretation Comments Eosinophils # (test code 0.1 See_Comment [A utomated message] The = Eosinophils #) system whic h generated this result tra nsmitted reference range : <=0.5. The reference r leo was not used to int erpret this result as normal/abnormal . [place] 846251-08-10 09:30:00 Test Item Value Reference Range Interpretation [...] studies, if clinically indicated, are recommended. CPT: 56486 [facility]BweufgdCOUSSZNIAJ9795-62-32 09:30:00 Test Item Value Reference Range Interpretation Comments WBC (test code = WBC) 2.5 3.7-10.4 [facility] HospitalDwvizciCTSCZFCBNR9185-40-99 09:30:00 Test Item Value Reference Range Interpretation Comments RBC (test code = RBC) 2.68 4.20-5.40 [facility] HospitalPkjmtcfDTTBHOCLNR5821-80-56 09:30:00 Test Item Value Reference Range Interpretation Comments Hgb (test code = Hgb) 8.2 12.0-16.0 [place] 846251-08-10 09:30:00 Test Item Value Reference Range Interpretation Comments Hct (test code = Hct) 24.3 36.0-48.0 [facility] HospitalKwevtlyJIUMSBUFOW5211-65-81 09:30:00 Test Item Value Reference Range Interpretation Comments MCV (test code = MCV) 90.9 80.0-98.0 [facility] HospitalPkgrhtsLKOVOQJCXD3705-34-00 09:30:00 Test Item Value Reference Range Interpretation Comments MCH (test code = MCH) 30.5 pg 27.0-31.0 [place] 846251-08-10 09:30:00 Test Item Value Reference Range Interpretation Comments MCHC (test code = MCHC) 33.6 32.0-36.0 [facility] HospitalTwaqducXDZURRGXFA7855-67-02 09:30:00 Test Item Value Reference Range Interpretation Comments RDW (test code = RDW) 19.4 11.5-14.5 [place] 846251-08-10 09:30:00 Test Item Value Reference Range Interpretation Comments Platelet (test code = Platelet) 70 133-450 [facility] HospitalYohngftVVQFLYWYKU8216-93-42 09:30:00 Test Item Value Reference Range Interpretation Comments MPV (test code = MPV) 10.7 7.4-10.4 [place] 587801-08-09 05:10:00 Test Item Value Reference Range Interpretation Comments Glucose Lvl (test code = Glucose Lvl) 69 70-99 [place] 587801-08-09 05:10:00 Test Item Value Reference Range Interpretation Comments BUN (test code = BUN) 29 7-22 [facility]2021-08-09 05:10:00 Test Item Value Reference Range Interpretation Comments Creatinine Lvl (test code = Creatinine 5.14 0.50-1.40 Lvl) [facility]2021-08-09 05:10:00 Test Item Value Reference Range Interpretation Comments Sodium Lvl (test code = Sodium Lvl) 134 135-145 [place] 587801-08-09 05:10:00 Test Item Value Reference Range Interpretation Comments Potassium Lvl (test code = Potassium 5.1 3.5-5.1 Lvl) [facility]2021-08-09 05:10:00 Test Item Value Reference Range Interpretation Comments Chloride Lvl (test code = Chloride Lvl) 98 95-109 [facility]2021-08-09 05:10:00 Test Item Value Reference Range Interpretation Comments CO2 (test code = CO2) 29 24-32 [facility]2021-08-09 05:10:00 Test Item Value Reference Range Interpretation Comments Calcium Lvl (test code = Calcium Lvl) 7.6 8.5-10.5 [facility]2021-08-09 05:10:00 Test Item Value Reference Range Interpretation Comments AGAP (test code = AGAP) 12.1 10.0-20.0 [place] 587801-08-09 05:10:00 Test Item Value Reference Range Interpretation Comments eGFR (test code = eGFR) 10 [place] 587801-08-09 05:10:00 Test Item Value Reference Range Interpretation Comments Magnesium Lvl (test code = Magnesium 2.3 1.8-2.4 Lvl) [facility]2021-08-09 05:10:00 Test Item Value Reference Range Interpretation Comments Phosphorus (test code = Phosphorus) 5.0 2.5-4.5 [facility]njyQXERJWCXZH2882-35-86 05:10:00 Test Item Value Reference Range Interpretation Comments WBC (test code = WBC) 2.7 3.7-10.4 [facility] HospitalNpkgiehICXRMIUYUL4052-97-90 05:10:00 Test Item Value Reference Range Interpretation Comments RBC (test code = RBC) 2.80 4.20-5.40 [facility] HospitalAkueueeBGFHLDSDIL7205-33-62 05:10:00 Test Item Value Reference Range Interpretation Comments Hgb (test code = Hgb) 8.5 12.0-16.0 [facility] HospitalMmxwdcnUQTJZLGMJV6853-53-96 05:10:00 Test Item Value Reference Range Interpretation Comments Hct (test code = Hct) 25.7 36.0-48.0 [facility] HospitalZulcsdtHFUYTZUXDY5263-54-73 05:10:00 Test Item Value Reference Range Interpretation Comments MCV (test code = MCV) 91.7 80.0-98.0 [facility] HospitalCufggfgZKHZVSEVFM8624-67-05 05:10:00 Test Item Value Reference Range Interpretation Comments MCH (test code = MCH) 30.4 pg 27.0-31.0 [facility] HospitalRrdufjjTQPVNJGIVY1955-14-63 05:10:00 Test Item Value Reference Range Interpretation Comments MCHC (test code = MCHC) 33.1 32.0-36.0 [facility] HospitalRgpzgnjJMDSSMNMUP8078-95-15 05:10:00 Test Item Value Reference Range Interpretation Comments RDW (test code = RDW) 19.2 11.5-14.5 [facility] HospitalRsuqzqnXCBWQMFOVD2401-78-61 05:10:00 Test Item Value Reference Range Interpretation Comments Platelet (test code = Platelet) 72 133-450 [facility] HospitalLvhcpbvSTIUBEYHQP2076-56-95 05:10:00 Test Item Value Reference Range Interpretation Comments MPV (test code = MPV) 9.9 7.4-10.4 [facility] HospitalJktnjbzYRDSFLJCXG5392-88-43 05:10:00 Test Item Value Reference Range Interpretation Comments Segs (test code = Segs) 72.6 45.0-75.0 [facility] HospitalYjdngiyLMYXOKCABI3491-07-19 05:10:00 Test Item Value Reference Range Interpretation Comments Lymphocytes (test code = Lymphocytes) 15.9 20.0-40.0 [facility] HospitalTkaluupQSLNXUWQLQ5149-93-06 05:10:00 Test Item Value Reference Range Interpretation Comments Monocytes (test code = Monocytes) 7.3 2.0-12.0 [facility] HospitalDqxofvuWORXULFQRI4471-72-08 05:10:00 Test Item Value Reference Range Interpretation Comments Eosinophils (test code = 3.4 See_Comment [A utomated message] The Eosinophils) system which ge nerated this result tra nsmitted reference range : <=4.0. The reference r leo was not used to int erpret this result as normal/abnormal . [facility] HospitalStizsfpGAJXYPHMSI5630-34-22 05:10:00 Test Item Value Reference Range Interpretation Comments Basophils (test code = 0.8 See_Comment [Aut omated message] The Basophils) system which ge nerated this result tra nsmitted reference range : <=1.0. The reference r leo was not used to int erpret this result as normal/abnormal . [facility] HospitalRfpwnrwKSDOIJEEKC8680-48-69 05:10:00 Test Item Value Reference Range Interpretation Comments Neutrophils # (test code = Neutrophils 1.9 1.5-8.1 #) [facility] HospitalRzdjalcILWCTMVUCQ2285-69-72 05:10:00 Test Item Value Reference Range Interpretation Comments Lymphocytes # (test code = Lymphocytes 0.4 1.0-5.5 #) [facility] HospitalRmbzmwnGLYQWBOYXR7971-75-53 05:10:00 Test Item Value Reference Range Interpretation Comments Monocytes # (test code 0.2 See_Comment [Aut omated message] The = Monocytes #) system which generated this result tra nsmitted reference range : <=0.8. The reference r leo was not used to int erpret this result as normal/abnormal . [facility] HospitalOwuxtcgVNIKQKSTMI7105-04-32 05:10:00 Test Item Value Reference Range Interpretation Comments Eosinophils # (test code 0.1 See_Comment [A utomated message] The = Eosinophils #) system whic h generated this result tra nsmitted reference range : <=0.5. The reference r leo was not used to int erpret this result as normal/abnormal . [facility] MLDLPIP1976-34-33 05:10:00 Test Item Value Reference Range Interpretation Comments Ca Ion WB (test code = Ca Ion WB) 1.10 1.05-1.25 [facility]PAR[facility] JMZGZIF2706-54-65 05:10:00 Test Item Value Reference Range Interpretation Comments Ca Norm WB (test code = Ca Norm WB) 1.06 1.05-1.25 [place] 587801-08-09 05:10:00 Test Item Value Reference Range Interpretation Comments Glucose Lvl (test code = Glucose Lvl) 69 70-99 [place] 587801-08-09 05:10:00 Test Item Value Reference Range Interpretation Comments BUN (test code = BUN) 29 7-22 [facility]2021-08-09 05:10:00 Test Item Value Reference Range Interpretation Comments Creatinine Lvl (test code = Creatinine 5.14 0.50-1.40 Lvl) [facility]2021-08-09 05:10:00 Test Item Value Reference Range Interpretation Comments Sodium Lvl (test code = Sodium Lvl) 134 135-145 [place] 587801-08-09 05:10:00 Test Item Value Reference Range Interpretation Comments Potassium Lvl (test code = Potassium 5.1 3.5-5.1 Lvl) [facility]2021-08-09 05:10:00 Test Item Value Reference Range Interpretation Comments Chloride Lvl (test code = Chloride Lvl) 98 95-109 [facility]2021-08-09 05:10:00 Test Item Value Reference Range Interpretation Comments CO2 (test code = CO2) 29 24-32 [facility]2021-08-09 05:10:00 Test Item Value Reference Range Interpretation Comments Calcium Lvl (test code = Calcium Lvl) 7.6 8.5-10.5 [facility]2021-08-09 05:10:00 Test Item Value Reference Range Interpretation Comments AGAP (test code = AGAP) 12.1 10.0-20.0 [place] 587801-08-09 05:10:00 Test Item Value Reference Range Interpretation Comments eGFR (test code = eGFR) 10 [place] 587801-08-09 05:10:00 Test Item Value Reference Range Interpretation Comments Magnesium Lvl (test code = Magnesium 2.3 1.8-2.4 Lvl) [facility]2021-08-09 05:10:00 Test Item Value Reference Range Interpretation Comments Phosphorus (test code = Phosphorus) 5.0 2.5-4.5 [facility]JbvwklyUPCXGQALYB7715-57-48 05:10:00 Test Item Value Reference Range Interpretation Comments WBC (test code = WBC) 2.7 3.7-10.4 [facility] HospitalMfzgkusJSYICBVSWE6722-73-78 05:10:00 Test Item Value Reference Range Interpretation Comments RBC (test code = RBC) 2.80 4.20-5.40 [facility] HospitalDuypfveFJFQXVXYGO7701-93-45 05:10:00 Test Item Value Reference Range Interpretation Comments Hgb (test code = Hgb) 8.5 12.0-16.0 [facility] HospitalYypcsepXXHNLGAACA1173-80-15 05:10:00 Test Item Value Reference Range Interpretation Comments Hct (test code = Hct) 25.7 36.0-48.0 [facility] HospitalSzvquyiLNTJTLTEWB8794-78-40 05:10:00 Test Item Value Reference Range Interpretation Comments MCV (test code = MCV) 91.7 80.0-98.0 [facility] HospitalGvjxdmqYPVDPESQZN7498-18-69 05:10:00 Test Item Value Reference Range Interpretation Comments MCH (test code = MCH) 30.4 pg 27.0-31.0 [facility] HospitalTsnmqbfKLUVKAOHKG2201-29-87 05:10:00 Test Item Value Reference Range Interpretation Comments MCHC (test code = MCHC) 33.1 32.0-36.0 [facility] HospitalMrsvhddMWOHSCQXVX5557-22-30 05:10:00 Test Item Value Reference Range Interpretation Comments RDW (test code = RDW) 19.2 11.5-14.5 [facility] HospitalNmrmulwCSFSMBXTJJ7400-94-11 05:10:00 Test Item Value Reference Range Interpretation Comments Platelet (test code = Platelet) 72 133-450 [facility] HospitalZwsdaxdFPXRVMNENR3780-54-95 05:10:00 Test Item Value Reference Range Interpretation Comments MPV (test code = MPV) 9.9 7.4-10.4 [facility] HospitalWbaymjpMIQBCZBMVY8783-46-01 05:10:00 Test Item Value Reference Range Interpretation Comments Segs (test code = Segs) 72.6 45.0-75.0 [facility] HospitalMcvikgqLKQEFUTPHF8701-07-39 05:10:00 Test Item Value Reference Range Interpretation Comments Lymphocytes (test code = Lymphocytes) 15.9 20.0-40.0 [facility] HospitalIgkzdnaFDLGEZOUKZ0896-46-75 05:10:00 Test Item Value Reference Range Interpretation Comments Monocytes (test code = Monocytes) 7.3 2.0-12.0 [facility] HospitalXpiwzhsMQNPJOOEDY0643-96-26 05:10:00 Test Item Value Reference Range Interpretation Comments Eosinophils (test code = 3.4 See_Comment [A utomated message] The Eosinophils) system which ge nerated this result tra nsmitted reference range : <=4.0. The reference r leo was not used to int erpret this result as normal/abnormal . [facility] HospitalEndpkrjZZFROICXSK5434-74-15 05:10:00 Test Item Value Reference Range Interpretation Comments Basophils (test code = 0.8 See_Comment [Aut omated message] The Basophils) system which ge nerated this result tra nsmitted reference range : <=1.0. The reference r leo was not used to int erpret this result as normal/abnormal . [facility] HospitalRbwanxuEKYFAGAGGV4983-95-96 05:10:00 Test Item Value Reference Range Interpretation Comments Neutrophils # (test code = Neutrophils 1.9 1.5-8.1 #) [facility] HospitalSqmjcnrOUPPGIVUZY6912-89-18 05:10:00 Test Item Value Reference Range Interpretation Comments Lymphocytes # (test code = Lymphocytes 0.4 1.0-5.5 #) [facility] HospitalSjslemeSNKFXDKBUF5261-92-16 05:10:00 Test Item Value Reference Range Interpretation Comments Monocytes # (test code 0.2 See_Comment [Aut omated message] The = Monocytes #) system which generated this result tra nsmitted reference range : <=0.8. The reference r leo was not used to int erpret this result as normal/abnormal . [facility] HospitalWdzmbjiAGHZLIFPGO1238-79-33 05:10:00 Test Item Value Reference Range Interpretation Comments Eosinophils # (test code 0.1 See_Comment [A utomated message] The = Eosinophils #) system whic h generated this result tra nsmitted reference range : <=0.5. The reference r leo was not used to int erpret this result as normal/abnormal . [facility] 05:10:00 Test Item Value Reference Range Interpretation Comments Ca Ion WB (test code = Ca Ion WB) 1.10 1.05-1.25 [facility] HSYVCXS6540-98-68 05:10:00 Test Item Value Reference Range Interpretation Comments Ca Norm WB (test code = Ca Norm WB) 1.06 1.05-1.25 [place] 653361-08-08 18:36:00 Test Item Value Reference Range Interpretation Comments C difficile DNA (test Negative (01/26/21 1:36 code = C difficile DNA) PM) [place] 653361-08-08 18:36:00 Test Item Value Reference Range Interpretation Comments C difficile DNA (test Negative (01/26/21 1:36 code = C difficile DNA) PM) [place] 763931-08-08 07:33:00 Test Item Value Reference Range Interpretation Comments Ca Ion WB (test code = Ca Ion WB) 1.12 1.05-1.25 [place] 763931-08-08 07:33:00 Test Item Value Reference Range Interpretation Comments Ca Norm WB (test code = Ca Norm WB) 1.07 1.05-1.25 [place] 414[address]-08-08 07:33:00 Test Item Value Reference Range Interpretation Comments Ca Ion WB (test code = Ca Ion WB) 1.12 1.05-1.25 [place] 763931-08-08 07:33:00 Test Item Value Reference Range Interpretation Comments Ca Norm WB (test code = Ca Norm WB) 1.07 1.05-1.25 [facility]2021-08-08 07:30:00 Test Item Value Reference Range Interpretation Comments Glucose Lvl (test code = Glucose Lvl) 65 70-99 [place] 587801-08-08 07:30:00 Test Item Value Reference Range Interpretation Comments BUN (test code = BUN) 21 7-22 [place] 587801-08-08 07:30:00 Test Item Value Reference Range Interpretation Comments Creatinine Lvl (test code = Creatinine 4.18 0.50-1.40 Lvl) [place] 587801-08-08 07:30:00 Test Item Value Reference Range Interpretation Comments Sodium Lvl (test code = Sodium Lvl) 136 135-145 [place] 587801-08-08 07:30:00 Test Item Value Reference Range Interpretation Comments Potassium Lvl (test code = Potassium 4.5 3.5-5.1 Lvl) [place] 587801-08-08 07:30:00 Test Item Value Reference Range Interpretation Comments Chloride Lvl (test code = Chloride Lvl) 99 95-109 [place] 587801-08-08 07:30:00 Test Item Value Reference Range Interpretation Comments CO2 (test code = CO2) 31 24-32 [place] 587801-08-08 07:30:00 Test Item Value Reference Range Interpretation Comments AGAP (test code = AGAP) 10.5 10.0-20.0 [place] 587801-08-08 07:30:00 Test Item Value Reference Range Interpretation Comments Calcium Lvl (test code = Calcium Lvl) 7.9 8.5-10.5 [place] 587801-08-08 07:30:00 Test Item Value Reference Range Interpretation Comments eGFR (test code = eGFR) 13 [place] 587801-08-08 07:30:00 Test Item Value Reference Range Interpretation Comments Magnesium Lvl (test code = Magnesium 2.2 1.8-2.4 Lvl) [place] 587801-08-08 07:30:00 Test Item Value Reference Range Interpretation Comments Phosphorus (test code = Phosphorus) 4.4 2.5-4.5 [place] 846251-08-08 07:30:00 Test Item Value Reference Range Interpretation Comments WBC (test code = WBC) 2.3 3.7-10.4 [place] 846251-08-08 07:30:00 Test Item Value Reference Range Interpretation Comments RBC (test code = RBC) 2.88 4.20-5.40 [place] 846251-08-08 07:30:00 Test Item Value Reference Range Interpretation Comments Hgb (test code = Hgb) 8.6 12.0-16.0 [place] 846251-08-08 07:30:00 Test Item Value Reference Range Interpretation Comments Hct (test code = Hct) 26.6 36.0-48.0 [place] 846251-08-08 07:30:00 Test Item Value Reference Range Interpretation Comments MCV (test code = MCV) 92.2 80.0-98.0 [place] 846251-08-08 07:30:00 Test Item Value Reference Range Interpretation Comments MCH (test code = MCH) 29.8 pg 27.0-31.0 [place] 846251-08-08 07:30:00 Test Item Value Reference Range Interpretation Comments MCHC (test code = MCHC) 32.4 32.0-36.0 [place] 846251-08-08 07:30:00 Test Item Value Reference Range Interpretation Comments RDW (test code = RDW) 19.7 11.5-14.5 [place] 846251-08-08 07:30:00 Test Item Value Reference Range Interpretation Comments Platelet (test code = Platelet) 83 133-450 [place] 846251-08-08 07:30:00 Test Item Value Reference Range Interpretation Comments MPV (test code = MPV) 10.2 7.4-10.4 [place] 846251-08-08 07:30:00 Test Item Value Reference Range Interpretation Comments Segs (test code = Segs) 64.0 45.0-75.0 [place] 846251-08-08 07:30:00 Test Item Value Reference Range Interpretation Comments Lymphocytes (test code = Lymphocytes) 24.1 20.0-40.0 [place] 846251-08-08 07:30:00 Test Item Value Reference Range Interpretation Comments Monocytes (test code = Monocytes) 7.0 2.0-12.0 [facility] HospitalFehrwklGRHURKLQAF6488-66-95 07:30:00 Test Item Value Reference Range Interpretation Comments Eosinophils (test code = 3.7 See_Comment [A utomated message] The Eosinophils) system which ge nerated this result tra nsmitted reference range : <=4.0. The reference r leo was not used to int erpret this result as normal/abnormal . [place] 846251-08-08 07:30:00 Test Item Value Reference Range Interpretation Comments Basophils (test code = 1.2 See_Comment [Aut omated message] The Basophils) system which ge nerated this result tra nsmitted reference range : <=1.0. The reference r leo was not used to int erpret this result as normal/abnormal . [place] 846251-08-08 07:30:00 Test Item Value Reference Range Interpretation Comments Neutrophils # (test code = Neutrophils 1.5 1.5-8.1 #) [place] 846251-08-08 07:30:00 Test Item Value Reference Range Interpretation Comments Lymphocytes # (test code = Lymphocytes 0.6 1.0-5.5 #) [place] 846251-08-08 07:30:00 Test Item Value Reference Range Interpretation Comments Monocytes # (test code 0.2 See_Comment [Aut omated message] The = Monocytes #) system which generated this result tra nsmitted reference range : <=0.8. The reference r leo was not used to int erpret this result as normal/abnormal . [place] 846251-08-08 07:30:00 Test Item Value Reference Range Interpretation Comments Eosinophils # (test code 0.1 See_Comment [A utomated message] The = Eosinophils #) system whic h generated this result tra nsmitted reference range : <=0.5. The reference r leo was not used to int erpret this result as normal/abnormal . [facility] [id number] 07:30:00 Test Item Value Reference Range Interpretation Comments Glucose Lvl (test code = Glucose Lvl) 65 70-99 [facility] [id number] 07:30:00 Test Item Value Reference Range Interpretation Comments BUN (test code = BUN) 21 7-22 [facility] MJGRG3102-17-83 07:30:00 Test Item Value Reference Range Interpretation Comments Creatinine Lvl (test code = Creatinine 4.18 0.50-1.40 Lvl) [place] 587801-08-08 07:30:00 Test Item Value Reference Range Interpretation Comments Sodium Lvl (test code = Sodium Lvl) 136 135-145 [facility] YDBVM3862-00-29 07:30:00 Test Item Value Reference Range Interpretation Comments Potassium Lvl (test code = Potassium 4.5 3.5-5.1 Lvl) [place] 587801-08-08 07:30:00 Test Item Value Reference Range Interpretation Comments Chloride Lvl (test code = Chloride Lvl) 99 95-109 [place] 587801-08-08 07:30:00 Test Item Value Reference Range Interpretation Comments CO2 (test code = CO2) 31 24-32 [place] 587801-08-08 07:30:00 Test Item Value Reference Range Interpretation Comments AGAP (test code = AGAP) 10.5 10.0-20.0 [place] 587801-08-08 07:30:00 Test Item Value Reference Range Interpretation Comments Calcium Lvl (test code = Calcium Lvl) 7.9 8.5-10.5 [place] [address]8875-08-08 07:30:00 Test Item Value Reference Range Interpretation Comments eGFR (test code = eGFR) 13 [place] 587801-08-08 07:30:00 Test Item Value Reference Range Interpretation Comments Magnesium Lvl (test code = Magnesium 2.2 1.8-2.4 Lvl) [place] 587801-08-08 07:30:00 Test Item Value Reference Range Interpretation Comments Phosphorus (test code = Phosphorus) 4.4 2.5-4.5 [place] [address]-08-08 07:30:00 Test Item Value Reference Range Interpretation Comments WBC (test code = WBC) 2.3 3.7-10.4 [place] 846251-08-08 07:30:00 Test Item Value Reference Range Interpretation Comments RBC (test code = RBC) 2.88 4.20-5.40 [place] [address]-08-08 07:30:00 Test Item Value Reference Range Interpretation Comments Hgb (test code = Hgb) 8.6 12.0-16.0 [place] 846251-08-08 07:30:00 Test Item Value Reference Range Interpretation Comments Hct (test code = Hct) 26.6 36.0-48.0 [place] 846251-08-08 07:30:00 Test Item Value Reference Range Interpretation Comments MCV (test code = MCV) 92.2 80.0-98.0 [place] 846251-08-08 07:30:00 Test Item Value Reference Range Interpretation Comments MCH (test code = MCH) 29.8 pg 27.0-31.0 [place] 846251-08-08 07:30:00 Test Item Value Reference Range Interpretation Comments MCHC (test code = MCHC) 32.4 32.0-36.0 [place] [address]-08-08 07:30:00 Test Item Value Reference Range Interpretation Comments RDW (test code = RDW) 19.7 11.5-14.5 [place] 846251-08-08 07:30:00 Test Item Value Reference Range Interpretation Comments Platelet (test code = Platelet) 83 133-450 [place] 846251-08-08 07:30:00 Test Item Value Reference Range Interpretation Comments MPV (test code = MPV) 10.2 7.4-10.4 [place] 846251-08-08 07:30:00 Test Item Value Reference Range Interpretation Comments Segs (test code = Segs) 64.0 45.0-75.0 [place] 846251-08-08 07:30:00 Test Item Value Reference Range Interpretation Comments Lymphocytes (test code = Lymphocytes) 24.1 20.0-40.0 [place] 846251-08-08 07:30:00 Test Item Value Reference Range Interpretation Comments Monocytes (test code = Monocytes) 7.0 2.0-12.0 [place] 846251-08-08 07:30:00 Test Item Value Reference Range Interpretation Comments Eosinophils (test code = 3.7 See_Comment [A utomated message] The Eosinophils) system which ge nerated this result tra nsmitted reference range : <=4.0. The reference r leo was not used to int erpret this result as normal/abnormal . [place] 846251-08-08 07:30:00 Test Item Value Reference Range Interpretation Comments Basophils (test code = 1.2 See_Comment [Aut omated message] The Basophils) system which ge nerated this result tra nsmitted reference range : <=1.0. The reference r leo was not used to int erpret this result as normal/abnormal . [facility]040[facility]61[facility] 07:30:00 Test Item Value Reference Range Interpretation Comments Neutrophils # (test code = Neutrophils 1.5 1.5-8.1 #) [facility]orzzrpUHRQWIPOGY0967-53-29 07:30:00 Test Item Value Reference Range Interpretation Comments Lymphocytes # (test code = Lymphocytes 0.6 1.0-5.5 #) [facility] HospitalNlvbijrFWXRMXZNHW6460-70-88 07:30:00 Test Item Value Reference Range Interpretation Comments Monocytes # (test code 0.2 See_Comment [Aut omated message] The = Monocytes #) system which generated this result tra nsmitted reference range : <=0.8. The reference r leo was not used to int erpret this result as normal/abnormal . [place] 846251-08-08 07:30:00 Test Item Value Reference Range Interpretation Comments Eosinophils # (test code 0.1 See_Comment [A utomated message] The = Eosinophils #) system whic h generated this result tra nsmitted reference range : <=0.5. The reference r leo was not used to int erpret this result as normal/abnormal . [place] 587801-08-07 09:32:00 Test Item Value Reference Range Interpretation Comments Glucose Lvl (test code = Glucose Lvl) 59 70-99 [place] 587801-08-07 09:32:00 Test Item Value Reference Range Interpretation Comments BUN (test code = BUN) 11 7-22 [place] 587801-08-07 09:32:00 Test Item Value Reference Range Interpretation Comments Creatinine Lvl (test code = Creatinine 2.75 0.50-1.40 Lvl) [place] 587801-08-07 09:32:00 Test Item Value Reference Range Interpretation Comments Sodium Lvl (test code = Sodium Lvl) 138 135-145 [place] 587801-08-07 09:32:00 Test Item Value Reference Range Interpretation Comments Potassium Lvl (test code = Potassium 4.1 3.5-5.1 Lvl) [place] 587801-08-07 09:32:00 Test Item Value Reference Range Interpretation Comments Chloride Lvl (test code = Chloride Lvl) 104 95-109 [place] 587801-08-07 09:32:00 Test Item Value Reference Range Interpretation Comments CO2 (test code = CO2) 29 24-32 [place] 587801-08-07 09:32:00 Test Item Value Reference Range Interpretation Comments Calcium Lvl (test code = Calcium Lvl) 8.3 8.5-10.5 [place] 587801-08-07 09:32:00 Test Item Value Reference Range Interpretation Comments AGAP (test code = AGAP) 9.1 10.0-20.0 [place] 587801-08-07 09:32:00 Test Item Value Reference Range Interpretation Comments eGFR (test code = eGFR) 21 [place] 587801-08-07 09:32:00 Test Item Value Reference Range Interpretation Comments Magnesium Lvl (test code = Magnesium 2.2 1.8-2.4 Lvl) [facility]2021-08-07 09:32:00 Test Item Value Reference Range Interpretation Comments Phosphorus (test code = Phosphorus) 3.9 2.5-4.5 [place] 846251-08-07 09:32:00 Test Item Value Reference Range Interpretation Comments WBC (test code = WBC) 2.3 3.7-10.4 [place] 846251-08-07 09:32:00 Test Item Value Reference Range Interpretation Comments RBC (test code = RBC) 2.78 4.20-5.40 [place] 846251-08-07 09:32:00 Test Item Value Reference Range Interpretation Comments Hgb (test code = Hgb) 8.4 12.0-16.0 [place] 846251-08-07 09:32:00 Test Item Value Reference Range Interpretation Comments Hct (test code = Hct) 25.2 36.0-48.0 [place] 846251-08-07 09:32:00 Test Item Value Reference Range Interpretation Comments MCV (test code = MCV) 90.5 80.0-98.0 [place] 846251-08-07 09:32:00 Test Item Value Reference Range Interpretation Comments MCH (test code = MCH) 30.4 pg 27.0-31.0 [place] 846251-08-07 09:32:00 Test Item Value Reference Range Interpretation Comments MCHC (test code = MCHC) 33.5 32.0-36.0 [place] 846251-08-07 09:32:00 Test Item Value Reference Range Interpretation Comments RDW (test code = RDW) 19.0 11.5-14.5 [place] 846251-08-07 09:32:00 Test Item Value Reference Range Interpretation Comments Platelet (test code = Platelet) 87 133-450 [facility] HospitalQbrfdgpIWPZGNJMSO5117-69-96 09:32:00 Test Item Value Reference Range Interpretation Comments MPV (test code = MPV) 10.0 7.4-10.4 [facility]2021-08-07 09:32:00 Test Item Value Reference Range Interpretation Comments Glucose Lvl (test code = Glucose Lvl) 59 70-99 [place] 587801-08-07 09:32:00 Test Item Value Reference Range Interpretation Comments BUN (test code = BUN) 11 7-22 [place] 587801-08-07 09:32:00 Test Item Value Reference Range Interpretation Comments Creatinine Lvl (test code = Creatinine 2.75 0.50-1.40 Lvl) [place] 587801-08-07 09:32:00 Test Item Value Reference Range Interpretation Comments Sodium Lvl (test code = Sodium Lvl) 138 135-145 [place] 587801-08-07 09:32:00 Test Item Value Reference Range Interpretation Comments Potassium Lvl (test code = Potassium 4.1 3.5-5.1 Lvl) [place] 587801-08-07 09:32:00 Test Item Value Reference Range Interpretation Comments Chloride Lvl (test code = Chloride Lvl) 104 95-109 [place] 587801-08-07 09:32:00 Test Item Value Reference Range Interpretation Comments CO2 (test code = CO2) 29 24-32 [place] 587801-08-07 09:32:00 Test Item Value Reference Range Interpretation Comments Calcium Lvl (test code = Calcium Lvl) 8.3 8.5-10.5 [place] 587801-08-07 09:32:00 Test Item Value Reference Range Interpretation Comments AGAP (test code = AGAP) 9.1 10.0-20.0 [place] 587801-08-07 09:32:00 Test Item Value Reference Range Interpretation Comments eGFR (test code = eGFR) 21 [place] 587801-08-07 09:32:00 Test Item Value Reference Range Interpretation Comments Magnesium Lvl (test code = Magnesium 2.2 1.8-2.4 Lvl) [place] 587801-08-07 09:32:00 Test Item Value Reference Range Interpretation Comments Phosphorus (test code = Phosphorus) 3.9 2.5-4.5 [place] 846251-08-07 09:32:00 Test Item Value Reference Range Interpretation Comments WBC (test code = WBC) 2.3 3.7-10.4 [place] 846251-08-07 09:32:00 Test Item Value Reference Range Interpretation Comments RBC (test code = RBC) 2.78 4.20-5.40 [facility]xgrqzxALFHLMGOBQ6284-81-21 09:32:00 Test Item Value Reference Range Interpretation Comments Hgb (test code = Hgb) 8.4 12.0-16.0 [facility] HospitalNtugfqxYXHSJAXHXS6571-98-14 09:32:00 Test Item Value Reference Range Interpretation Comments Hct (test code = Hct) 25.2 36.0-48.0 [facility] HospitalIwyurrgOMLJJLWVQL0457-54-36 09:32:00 Test Item Value Reference Range Interpretation Comments MCV (test code = MCV) 90.5 80.0-98.0 [facility] HospitalTlkmgcoYDLTRKQOAJ0085-29-88 09:32:00 Test Item Value Reference Range Interpretation Comments MCH (test code = MCH) 30.4 pg 27.0-31.0 [facility] HospitalTapelgzDLLJUEHNZN3234-72-88 09:32:00 Test Item Value Reference Range Interpretation Comments MCHC (test code = MCHC) 33.5 32.0-36.0 [facility] HospitalYlbcrchWVXLAWEPVX5550-56-12 09:32:00 Test Item Value Reference Range Interpretation Comments RDW (test code = RDW) 19.0 11.5-14.5 [facility] HospitalAwbigonALOCODYDSU2541-30-44 09:32:00 Test Item Value Reference Range Interpretation Comments Platelet (test code = Platelet) 87 133-450 [facility] HospitalHtxknuoCIIWHUNGUV0990-41-40 09:32:00 Test Item Value Reference Range Interpretation Comments MPV (test code = MPV) 10.0 7.4-10.4 [facility] MHFGZBD7563-00-04 05:33:00 Test Item Value Reference Range Interpretation Comments ABO/Rh (test code = ABO/Rh) B POS [facility] BMCUYHL9483-41-52 05:33:00 Test Item Value Reference Range Interpretation Comments Antibody Scrn (test Negative (01/24/21 12:33 code = Antibody Scrn) AM) [facility] HospitalGnckaooPDJGUDWNFP1251-45-35 05:33:00 Test Item Value Reference Range Interpretation Comments Segs (test code = Segs) 60.2 45.0-75.0 [facility] HospitalXutwuelRQAVQDOJYF0597-00-98 05:33:00 Test Item Value Reference Range Interpretation Comments Lymphocytes (test code = Lymphocytes) 28.6 20.0-40.0 [facility] HospitalTpucdgyKCLDNVOEEY4700-07-03 05:33:00 Test Item Value Reference Range Interpretation Comments Monocytes (test code = Monocytes) 5.8 2.0-12.0 [facility] HospitalZzecjzsQSVWONXQZB0280-30-62 05:33:00 Test Item Value Reference Range Interpretation Comments Eosinophils (test code = 4.2 See_Comment [A utomated message] The Eosinophils) system which ge nerated this result tra nsmitted reference range : <=4.0. The reference r leo was not used to int erpret this result as normal/abnormal . [facility] HospitalHtupbgsWDMSGFOGLU8904-53-78 05:33:00 Test Item Value Reference Range Interpretation Comments Basophils (test code = 1.2 See_Comment [Aut omated message] The Basophils) system which ge nerated this result tra nsmitted reference range : <=1.0. The reference r leo was not used to int erpret this result as normal/abnormal . [facility] HospitalKukadaxGWYFBJYYIB5103-27-64 05:33:00 Test Item Value Reference Range Interpretation Comments Neutrophils # (test code = Neutrophils 2.2 1.5-8.1 #) [facility] HospitalXvbpizsUINWYRLNKA1720-11-15 05:33:00 Test Item Value Reference Range Interpretation Comments Lymphocytes # (test code = Lymphocytes 1.1 1.0-5.5 #) [facility] HospitalRorrxzqGYALAZDRZS2982-44-38 05:33:00 Test Item Value Reference Range Interpretation Comments Monocytes # (test code 0.2 See_Comment [Aut omated message] The = Monocytes #) system which generated this result tra nsmitted reference range : <=0.8. The reference r leo was not used to int erpret this result as normal/abnormal . [facility] HospitalPvpqnwbTRDAICUMDR2330-73-59 05:33:00 Test Item Value Reference Range Interpretation Comments Eosinophils # (test code 0.2 See_Comment [A utomated message] The = Eosinophils #) system whic h generated this result tra nsmitted reference range : <=0.5. The reference r leo was not used to int erpret this result as normal/abnormal . [facility] DHJOCPZ1817-26-27 05:33:00 Test Item Value Reference Range Interpretation Comments ABO/Rh (test code = ABO/Rh) B POS [facility] RPPOBDJ6004-44-55 05:33:00 Test Item Value Reference Range Interpretation Comments Antibody Scrn (test Negative (01/24/21 12:33 code = Antibody Scrn) AM) [facility] HospitalCllplhqLLWFCPBHID3683-46-74 05:33:00 Test Item Value Reference Range Interpretation Comments Segs (test code = Segs) 60.2 45.0-75.0 [facility] HospitalClzijtuTKTAWEGJTH4146-08-68 05:33:00 Test Item Value Reference Range Interpretation Comments Lymphocytes (test code = Lymphocytes) 28.6 20.0-40.0 [facility] HospitalFekvnbdXUXGGLPWSB9820-85-25 05:33:00 Test Item Value Reference Range Interpretation Comments Monocytes (test code = Monocytes) 5.8 2.0-12.0 [facility] HospitalTnbbcbhSUJWRELAXG6744-68-65 05:33:00 Test Item Value Reference Range Interpretation Comments Eosinophils (test code = 4.2 See_Comment [A utomated message] The Eosinophils) system which ge nerated this result tra nsmitted reference range : <=4.0. The reference r leo was not used to int erpret this result as normal/abnormal . [facility] HospitalOsnxbgpJVKOXZQNCK6298-28-52 05:33:00 Test Item Value Reference Range Interpretation Comments Basophils (test code = 1.2 See_Comment [Aut omated message] The Basophils) system which ge nerated this result tra nsmitted reference range : <=1.0. The reference r leo was not used to int erpret this result as normal/abnormal . [facility] HospitalAmrbbdhOCAVUBPGRL6538-69-32 05:33:00 Test Item Value Reference Range Interpretation Comments Neutrophils # (test code = Neutrophils 2.2 1.5-8.1 #) [facility] HospitalJfesgdeSSVJUFCZGJ4258-25-95 05:33:00 Test Item Value Reference Range Interpretation Comments Lymphocytes # (test code = Lymphocytes 1.1 1.0-5.5 #) [facility] HospitalFuavbrcSSYQYAEWEW1790-72-07 05:33:00 Test Item Value Reference Range Interpretation Comments Monocytes # (test code 0.2 See_Comment [Aut omated message] The = Monocytes #) system which generated this result tra nsmitted reference range : <=0.8. The reference r leo was not used to int erpret this result as normal/abnormal . [facility] HospitalXglwqygWDJUUAAIHH9934-31-08 05:33:00 Test Item Value Reference Range Interpretation Comments Eosinophils # (test code 0.2 See_Comment [A utomated message] The = Eosinophils #) system whic h generated this result tra nsmitted reference range : <=0.5. The reference r leo was not used to int erpret this result as normal/abnormal . [facility] HospitalKrpzekpFSRSVFVSPH3946-69-88 05:53:00 Test Item Value Reference Range Interpretation Comments PT (test code = PT) 14.4 s 12.0-14.7 [facility] HospitalTuhienvKMAIEZYXSU0298-71-78 05:53:00 Test Item Value Reference Range Interpretation Comments INR (test code = INR) 1.13 1 0.85-1.17 [facility] HospitalKoyebnaNJQVEMPCCL7280-62-14 05:53:00 Test Item Value Reference Range Interpretation Comments Fibrinogen Lvl (test code = Fibrinogen 319 230-510 Lvl) [facility] HospitalNlrjuovDALUMHHPQT5340-41-16 05:53:00 Test Item Value Reference Range Interpretation Comments Thrombin Time (test code = Thrombin 15.9 s 15.0-21.2 Time) [facility] HospitalYayyfhpCEHLUTYHMS1257-32-94 05:53:00 Test Item Value Reference Range Interpretation Comments PTT (test code = PTT) 47.0 s 22.9-35.8 [facility] HospitalEsqiixzGJMSFIFGKP3302-42-39 05:53:00 Test Item Value Reference Range Interpretation Comments D-Dimer (test code = D-Dimer) 0.91 [facility] HospitalKtdphkoZVYVRDEXQN4569-94-84 05:53:00 Test Item Value Reference Range Interpretation Comments Basophils # (test code 0.1 See_Comment [Aut omated message] The = Basophils #) system which generated this result tra nsmitted reference range : <=0.2. The reference r leo was not used to int erpret this result as normal/abnormal . [facility]PARATHYROID VQJCFWW5463-91-51 05:53:00 Test Item Value Reference Range Interpretation Comments Ca Ion WB (test code = Ca Ion WB) 1.24 1.05-1.25 [facility] PAMUZMD1634[facility] 05:53:00 Test Item Value Reference Range Interpretation Comments Ca Norm WB (test code = Ca Norm WB) 1.25 1.05-1.25 [place] 846251-08-05 05:53:00 Test Item Value Reference Range Interpretation Comments PT (test code = PT) 14.4 s 12.0-14.7 [place] 846251-08-05 05:53:00 Test Item Value Reference Range Interpretation Comments INR (test code = INR) 1.13 1 0.85-1.17 [place] 846251-08-05 05:53:00 Test Item Value Reference Range Interpretation Comments Fibrinogen Lvl (test code = Fibrinogen 319 230-510 Lvl) [place] 846251-08-05 05:53:00 Test Item Value Reference Range Interpretation Comments Thrombin Time (test code = Thrombin 15.9 s 15.0-21.2 Time) [place] 846251-08-05 05:53:00 Test Item Value Reference Range Interpretation Comments PTT (test code = PTT) 47.0 s 22.9-35.8 [place] 846251-08-05 05:53:00 Test Item Value Reference Range Interpretation Comments D-Dimer (test code = D-Dimer) 0.91 [place] 00[address]-08-05 05:53:00 Test Item Value Reference Range Interpretation Comments Basophils # (test code 0.1 See_Comment [Aut omated message] The = Basophils #) system which generated this result tra nsmitted reference range : <=0.2. The reference r leo was not used to int erpret this result as normal/abnormal . [facility]iWaveRO[facility] [id number] 05:53:00 Test Item Value Reference Range Interpretation Comments Ca Ion WB (test code = Ca Ion WB) 1.24 1.05-1.25 [facility] [id number] 05:53:00 Test Item Value Reference Range Interpretation Comments Ca Norm WB (test code = Ca Norm WB) 1.25 1.05-1.25 [facility] [id number] 10:09:00 Test Item Value Reference Range Interpretation Comments ALT (test code = ALT) 49 See_Comment [Auto mated message] The system which ge nerated this result transmit rohit reference range : <=65. The reference range was not used to interpr et this result as reji l/abnormal. [facility] FQKNM0415-12-28 10:09:00 Test Item Value Reference Range Interpretation Comments Albumin Lvl (test code = Albumin Lvl) 2.8 3.5-5.0 [facility] [id number] 10:09:00 Test Item Value Reference Range Interpretation Comments Alk Phos (test code = Alk Phos) 41 39-136 [facility] [id number] 10:09:00 Test Item Value Reference Range Interpretation Comments Bili Direct (test code 0.2 See_Comment [Aut omated message] The = Bili Direct) system which generated this result tra nsmitted reference range : <=0.3. The reference r leo was not used to int erpret this result as reji l/abnormal. [facility] [id number] 10:09:00 Test Item Value Reference Range Interpretation Comments Bili Total (test code = Bili Total) 0.6 0.2-1.3 [facility] [id number] 10:09:00 Test Item Value Reference Range Interpretation Comments Bili Indirect (test 0.4 See_Comment [Automa rohit message] The code = Bili Indirect) system which generated this result tra nsmitted reference range : <=1.0. The reference r leo was not used to int erpret this result as normal/abnormal . [facility] [id number] 10:09:00 Test Item Value Reference Range Interpretation Comments Total Protein (test code = Total 5.6 6.4-8.4 Protein) [facility] [id number] 10:09:00 Test Item Value Reference Range Interpretation Comments AST (test code = AST) 33 See_Comment [Auto mated message] The system which ge nerated this result transmit rohit reference range : <=37. The reference range was not used to interpr et this result as reji l/abnormal. [facility] [id number] 10:09:00 Test Item Value Reference Range Interpretation Comments Globulin (test code = Globulin) 2.8 2.7-4.2 [facility] [id number] 10:09:00 Test Item Value Reference Range Interpretation Comments A/G Ratio (test code = A/G Ratio) 1.0 1 0.7-1.6 [facility] [id number] 10:09:00 Test Item Value Reference Range Interpretation Comments Amylase Lvl (test code = Amylase Lvl) 19 25-115 [facility] [id number] 10:09:00 Test Item Value Reference Range Interpretation Comments Lipase Lvl (test code = Lipase Lvl) no gt 73-393 [facility]elzskfAPXNTJATUS3707-06-42 10:09:00 Test Item Value Reference Range Interpretation Comments PTT (test code = PTT) 41.4 s 22.9-35.8 [facility] HospitalHonbnlxXJCRRHEGPI1763-21-90 10:09:00 Test Item Value Reference Range Interpretation Comments PT (test code = PT) 15.4 s 12.0-14.7 [facility]QpibgwgOXCNHOPJDO2761-39-18 10:09:00 Test Item Value Reference Range Interpretation Comments INR (test code = INR) 1.24 1 0.85-1.17 [facility]TgltqdaHAHQBHIZKU6549-62-18 10:09:00 Test Item Value Reference Range Interpretation Comments Fibrinogen Lvl (test code = Fibrinogen 312 230-510 Lvl) [facility]EndcesrCORRXFLFMT7383-55-43 10:09:00 Test Item Value Reference Range Interpretation Comments Thrombin Time (test code = Thrombin 16.6 s 15.0-21.2 Time) [facility] HospitalJlyryryZEDCDCOPJM9339-40-80 10:09:00 Test Item Value Reference Range Interpretation Comments D-Dimer (test code = D-Dimer) 4.91 [facility] HospitalClecutaKWCHRMQLYI0603-39-54 10:09:00 Test Item Value Reference Range Interpretation Comments Basophils # (test code 0.1 See_Comment [Aut omated message] The = Basophils #) system which generated this result tra nsmitted reference range : <=0.2. The reference r leo was not used to int erpret this result as normal/abnormal . [facility] VIITWXDWF0552-30-98 10:09:00 Test Item Value Reference Range Interpretation Comments Hgb A1C (test code = Hgb A1C) 5.6 [facility] [id number] 10:09:00 Test Item Value Reference Range Interpretation Comments ALT (test code = ALT) 49 See_Comment [Auto mated message] The system which ge nerated this result transmit rohit reference range : <=65. The reference range was not used to interpr et this result as reji l/abnormal. [facility] [id number] 10:09:00 Test Item Value Reference Range Interpretation Comments Albumin Lvl (test code = Albumin Lvl) 2.8 3.5-5.0 [facility] [id number] 10:09:00 Test Item Value Reference Range Interpretation Comments Alk Phos (test code = Alk Phos) 41 39-136 [facility]2021-08-04 10:09:00 Test Item Value Reference Range Interpretation Comments Bili Direct (test code 0.2 See_Comment [Aut omated message] The = Bili Direct) system which generated this result tra nsmitted reference range : <=0.3. The reference r leo was not used to int erpret this result as reji l/abnormal. [facility] [id number] 10:09:00 Test Item Value Reference Range Interpretation Comments Bili Total (test code = Bili Total) 0.6 0.2-1.3 [facility] [id number] 10:09:00 Test Item Value Reference Range Interpretation Comments Bili Indirect (test 0.4 See_Comment [Automa rohit message] The code = Bili Indirect) system which generated this result tra nsmitted reference range : <=1.0. The reference r leo was not used to int erpret this result as normal/abnormal . [facility] [id number] 10:09:00 Test Item Value Reference Range Interpretation Comments Total Protein (test code = Total 5.6 6.4-8.4 Protein) [facility] [id number] 10:09:00 Test Item Value Reference Range Interpretation Comments AST (test code = AST) 33 See_Comment [Auto mated message] The system which ge nerated this result transmit rohit reference range : <=37. The reference range was not used to interpr et this result as reji l/abnormal. [facility] [id number] 10:09:00 Test Item Value Reference Range Interpretation Comments Globulin (test code = Globulin) 2.8 2.7-4.2 [facility] [id number] 10:09:00 Test Item Value Reference Range Interpretation Comments A/G Ratio (test code = A/G Ratio) 1.0 1 0.7-1.6 [facility] [id number] 10:09:00 Test Item Value Reference Range Interpretation Comments Amylase Lvl (test code = Amylase Lvl) 19 25-115 [facility] [id number] 10:09:00 Test Item Value Reference Range Interpretation Comments Lipase Lvl (test code = Lipase Lvl) no gt 03-393 [facility] [id number] 10:09:00 Test Item Value Reference Range Interpretation Comments PTT (test code = PTT) 41.4 s 22.9-35.8 [facility]zck[facility]ruQTOHICKVAK1733-81-04 10:09:00 Test Item Value Reference Range Interpretation Comments PT (test code = PT) 15.4 s 12.0-14.7 [facility]dsjtpkOTMWJUGOQH0284-41-17 10:09:00 Test Item Value Reference Range Interpretation Comments INR (test code = INR) 1.24 1 0.85-1.17 [facility]KpneainGLSHKNTLBB0285-29-50 10:09:00 Test Item Value Reference Range Interpretation Comments Fibrinogen Lvl (test code = Fibrinogen 312 230-510 Lvl) [facility]YiyygluMFPMGZLZSM8788-62-61 10:09:00 Test Item Value Reference Range Interpretation Comments Thrombin Time (test code = Thrombin 16.6 s 15.0-21.2 Time) [id number] 10:09:00 Test Item Value Reference Range Interpretation Comments D-Dimer (test code = D-Dimer) 4.91 [facility] HospitalWowdnwuLPLGWOZWBR3410-45-10 10:09:00 Test Item Value Reference Range Interpretation Comments Basophils # (test code 0.1 See_Comment [Aut omated message] The = Basophils #) system which generated this result tra nsmitted reference range : <=0.2. The reference r leo was not used to int erpret this result as normal/abnormal . [facility] VQMLPGAWQ3418-14-24 10:09:00 Test Item Value Reference Range Interpretation Comments Hgb A1C (test code = Hgb A1C) 5.6 [facility] [id number] 09:07:00 Test Item Value Reference Range Interpretation Comments Amylase Lvl (test code = Amylase Lvl) 4 25-115 [facility] HospitalIlhyuxqAJLJIVOFMJ0455-38-10 09:07:00 Test Item Value Reference Range Interpretation Comments Thrombin Time (test code = Thrombin 18.0 s 15.0-21.2 Time) [facility] HospitalEcxfuihBHPFJTHAFQ1611-74-54 09:07:00 Test Item Value Reference Range Interpretation Comments PT (test code = PT) 24.6 s 12.0-14.7 [facility] HospitalMlnaiqrVWLJQQYPXZ3518-08-34 09:07:00 Test Item Value Reference Range Interpretation Comments INR (test code = INR) 2.31 1 0.85-1.17 [facility] HospitalCnklaguGXADUYETPS3107-81-06 09:07:00 Test Item Value Reference Range Interpretation Comments PTT (test code = PTT) 57.5 s 22.9-35.8 [facility] HospitalFayaatzUIYIGJUCVH4549-00-00 09:07:00 Test Item Value Reference Range Interpretation Comments Fibrinogen Lvl (test code = Fibrinogen 125 230-510 Lvl) [facility] HospitalQsikpmlQVRAQNDBMS7924-70-02 09:07:00 Test Item Value Reference Range Interpretation Comments D-Dimer (test code = D-Dimer) 2.28 [facility]2021-08-04 09:07:00 Test Item Value Reference Range Interpretation Comments Amylase Lvl (test code = Amylase Lvl) 4 25-115 [facility] HospitalEteaiukKPIVQAVNEW3827-02-20 09:07:00 Test Item Value Reference Range Interpretation Comments Thrombin Time (test code = Thrombin 18.0 s 15.0-21.2 Time) [facility] HospitalWbiyjjuHJVXDUUZFF5745-87-49 09:07:00 Test Item Value Reference Range Interpretation Comments PT (test code = PT) 24.6 s 12.0-14.7 [facility] HospitalTkkehhlBQABJGPAJD2228-47-07 09:07:00 Test Item Value Reference Range Interpretation Comments INR (test code = INR) 2.31 1 0.85-1.17 [facility] HospitalPmueaquNELCKCPGVG6227-39-25 09:07:00 Test Item Value Reference Range Interpretation Comments PTT (test code = PTT) 57.5 s 22.9-35.8 [facility] HospitalIjtftzxYOMPYSEIWT8208-16-61 09:07:00 Test Item Value Reference Range Interpretation Comments Fibrinogen Lvl (test code = Fibrinogen 125 230-510 Lvl) [facility] HospitalKtpmcapRMWXYHRHUR6686-75-55 09:07:00 Test Item Value Reference Range Interpretation Comments D-Dimer (test code = D-Dimer) 2.28 [facility]ly [facility] [id number] 04:52:00 Test Item Value Reference Range Interpretation Comments RBC product (test code Product available = RBC product) (01/21/21 11:52 PM) [facility] [id number] 04:52:00 Test Item Value Reference Range Interpretation Comments RBC product (test code Product available = RBC product) (01/21/21 11:52 PM) [facility] Any+TimesCARWEMS [id number] 00:38:00 Test Item Value Reference Range Interpretation Comments Troponin-I (test code no gt See_Comment [Auto mated message] The = Troponin-I) system which g enerated this result transmit rohit reference range : <=0.40. The reference r leo was not used to interpr et this result as reji l/abnormal. [facility] [id number] 00:38:00 Test Item Value Reference Range Interpretation Comments Troponin-I (test code no gt See_Comment [Auto mated message] The = Troponin-I) system which g enerated this result transmit rhoit reference range : <=0.40. The reference r leo was not used to interpr et this result as reji l/abnormal. [facility] [id number] 17:47:00 Test Item Value Reference Range Interpretation Comments BNP (test code = BNP) 2323 [facility] [id number] 17:47:00 Test Item Value Reference Range Interpretation Comments Troponin-I (test code 0.02 See_Comment [Auto mated message] The = Troponin-I) system which g enerated this result transmit rohit reference range : <=0.40. The reference r leo was not used to interpr et this result as reji l/abnormal. [facility] TnrwevhGSDMKBDAMD9553-59-38 17:47:00 Test Item Value Reference Range Interpretation Comments Hep Bs Ag (test code Negative *NA*(01/21/21 = Hep Bs Ag) 12:47 PM) [facility] Any+TimesCAR3VRAC NAKISVZ8461-87-18 17:47:00 Test Item Value Reference Range Interpretation Comments BNP (test code = BNP) 2323 [facility] [id number] 17:47:00 Test Item Value Reference Range Interpretation Comments Troponin-I (test code 0.02 See_Comment [Auto mated message] The = Troponin-I) system which g enerated this result transmit rohit reference range : <=0.40. The reference r leo was not used to interpr et this result as rjei l/abnormal. [facility] HospitalIqfuizzJMQJLTJNTY9110-88-22 17:47:00 Test Item Value Reference Range Interpretation Comments Hep Bs Ag (test code Negative *NA*(01/21/21 = Hep Bs Ag) 12:47 PM) [facility] [id number] 17:43:00 Test Item Value Reference Range Interpretation Comments B/C Ratio (test code = B/C Ratio) 5 1 6-25 [facility] [id number] 17:43:00 Test Item Value Reference Range Interpretation Comments ALT (test code = ALT) 66 See_Comment [Auto mated message] The system which ge nerated this result transmit rohit reference range : <=65. The reference range was not used to interpr et this result as reji l/abnormal. [facility] [id number] 17:43:00 Test Item Value Reference Range Interpretation Comments Albumin Lvl (test code = Albumin Lvl) 3.0 3.5-5.0 [facility] [id number] 17:43:00 Test Item Value Reference Range Interpretation Comments Alk Phos (test code = Alk Phos) 40 39-136 [facility] [id number] 17:43:00 Test Item Value Reference Range Interpretation Comments Bili Total (test code = Bili Total) 0.5 0.2-1.3 [facility] [id number] 17:43:00 Test Item Value Reference Range Interpretation Comments Total Protein (test code = Total 5.7 6.4-8.4 Protein) [facility] [id number] 17:43:00 Test Item Value Reference Range Interpretation Comments AST (test code = AST) 52 See_Comment [Auto mated message] The system which ge nerated this result transmit rohit reference range : <=37. The reference range was not used to interpr et this result as reji l/abnormal. [facility] [id number] 17:43:00 Test Item Value Reference Range Interpretation Comments Globulin (test code = Globulin) 2.7 2.7-4.2 [facility] [id number] 17:43:00 Test Item Value Reference Range Interpretation Comments A/G Ratio (test code = A/G Ratio) 1.1 1 0.7-1.6 [place] [id number] 17:43:00 Test Item Value Reference Range Interpretation Comments Lactic Acid Lvl (test code = Lactic 1.1 0.5-2.2 Acid Lvl) [facility] [id number] 17:43:00 Test Item Value Reference Range Interpretation Comments B/C Ratio (test code = B/C Ratio) 5 1 6-25 [facility] [id number] 17:43:00 Test Item Value Reference Range Interpretation Comments ALT (test code = ALT) 66 See_Comment [Auto mated message] The system which ge nerated this result transmit rohit reference range : <=65. The reference range was not used to interpr et this result as reji l/abnormal. [facility] [id number] 17:43:00 Test Item Value Reference Range Interpretation Comments Albumin Lvl (test code = Albumin Lvl) 3.0 3.5-5.0 [facility] [id number] 17:43:00 Test Item Value Reference Range Interpretation Comments Alk Phos (test code = Alk Phos) 40 39-136 [facility] [id number] 17:43:00 Test Item Value Reference Range Interpretation Comments Bili Total (test code = Bili Total) 0.5 0.2-1.3 [facility] [id number] 17:43:00 Test Item Value Reference Range Interpretation Comments Total Protein (test code = Total 5.7 6.4-8.4 Protein) [facility] [id number] 17:43:00 Test Item Value Reference Range Interpretation Comments AST (test code = AST) 52 See_Comment [Auto mated message] The system which ge nerated this result transmit rohit reference range : <=37. The reference range was not used to interpr et this result as reji l/abnormal. [facility] [id number] 17:43:00 Test Item Value Reference Range Interpretation Comments Globulin (test code = Globulin) 2.7 2.7-4.2 [facility] [id number] 17:43:00 Test Item Value Reference Range Interpretation Comments A/G Ratio (test code = A/G Ratio) 1.1 1 0.7-1.6 [facility] [id number] 17:43:00 Test Item Value Reference Range Interpretation Comments Lactic Acid Lvl (test code = Lactic 1.1 0.5-2.2 Acid Lvl) [facility] [id number] 16:20:00 Test Item Value Reference Range Interpretation Comments ABO/Rh (test code = ABO/Rh) B POS [facility] [id number] 16:20:00 Test Item Value Reference Range Interpretation Comments Antibody Scrn (test Negative (01/21/21 11:20 code = Antibody Scrn) AM) [facility] Hospit[id number] 16:20:00 Test Item Value Reference Range Interpretation Comments Anisocyte (test code = 1+ *ABN*(01/21/21 Anisocyte) 11:20 AM) [facility] [id number] 16:20:00 Test Item Value Reference Range Interpretation Comments ABO/Rh (test code = ABO/Rh) B POS [facility] [id number] 16:20:00 Test Item Value Reference Range Interpretation Comments Antibody Scrn (test Negative (01/21/21 11:20 code = Antibody Scrn) AM) [facility] HospitalP[id number] 16:20:00 Test Item Value Reference Range Interpretation Comments Anisocyte (test code = 1+ *ABN*(01/21/21 Anisocyte) 11:20 AM) [facility] [id number] 15:35:00 Test Item Value Reference Range Interpretation Comments Lactase Lvl (test code = Lactase Lvl) 2.0 [facility]Acc[facility]rapeutics[facility] [id number] 15:35:00 Test Item Value Reference Range Interpretation Comments Sucrase Lvl (test code = Sucrase Lvl) 38.6 [facility] LAB [id number] 15:35:00 Test Item Value Reference Range Interpretation Comments Maltase Lvl (test code = Maltase Lvl) 177.2 [facility]Acc[facility] [id number] 15:35:00 Test Item Value Reference Range Interpretation Comments Palatinase Lvl (test code = Palatinase 13.8 Lvl) [facility] [id number] 15:35:00 Test Item Value Reference Range Interpretation Comments Lactase Lvl (test code = Lactase Lvl) 2.0 [facility] [id number] 15:35:00 Test Item Value Reference Range Interpretation Comments Sucrase Lvl (test code = Sucrase Lvl) 38.6 [facility] LAB [id number] 15:35:00 Test Item Value Reference Range Interpretation Comments Maltase Lvl (test code = Maltase Lvl) 177.2 [facility] LAB [id number] 15:35:00 Test Item Value Reference Range Interpretation Comments Palatinase Lvl (test code = Palatinase 13.8 Lvl) [facility][id number] 13:21:00 Test Item Value Reference Range Interpretation Comments Potassium WB (test code = Potassium WB) 5.1 3.5-5.1 [place] [id number] 13:21:00 Test Item Value Reference Range Interpretation Comments S Preg (test code = S Negative 8*NA*(01/21/21 Preg) 8:21 AM) [facility] HospitalSzwfnzpJJHFPCREUKKX7595-73-27 13:21:00 Test Item Value Reference Range Interpretation Comments Potassium WB (test code = Potassium WB) 5.1 3.5-5.1 [place] [id number] 13:21:00 Test Item Value Reference Range Interpretation Comments S Preg (test code = S Negative 8*NA*(01/21/21 Preg) 8:21 AM) [facility]QJ2216-[facility]-23 11:19:00 Test Item Value Reference Range Interpretation Comments Coronavirus (COVID-19) Not Detected (01/21/21 EMANUEL (test code = 6:19 AM) Coronavirus (COVID-19) EMANUEL) [facility]dBSKFORORFZ4710-[facility] 11:19:00 Test Item Value Reference Range Interpretation Comments Coronavirus (COVID-19) Not Detected (01/21/21 EMANUEL (test code = 6:19 AM) Coronavirus (COVID-19) EMANUEL) [facility] [id number] 16:39:05 Test Item Value Reference Range Interpretation Comments Glucose POC (test 183 mg/dL 70-115 H If you con medical technologist your code = Glucose POC) patient critically ill, the Merlin-Accu Check Infrom II meter should not be used for Glucose determination. Draw a venous Glucose and send to the main Lab for analysis. Urine [id number] 11:32:13 Test Item Value Reference Range Interpretation [...] Report) Escherichia coli C Urine Added by [facility] [id number] 07:52:10 Test Item Value Reference Range Interpretation Comments Glucose POC (test 160 mg/dL 70-115 H If you con medical technologist your code = Glucose POC) patient critically ill, the Merlin-Accu Check Infrom II meter should not be used for Glucose determination. Draw a venous Glucose and send to the main Lab for analysis. POC Noguoqd6923-07-27 19:32:05 Test Item Value Reference Range Interpretation Comments Glucose POC (test 184 mg/dL 70-115 H If you con medical technologist your code = Glucose POC) patient critically ill, the Merlin-Accu Check Infrom II meter should not be used for Glucose determination. Draw a venous Glucose and send to the main Lab for analysis. POC [id number] 17:16:35 Test Item Value Reference Range Interpretation Comments Glucose POC (test 281 mg/dL 70-115 H Notify RN or MDIf you code = Glucose POC) consider your patient critically ill, the Merlin-Accu Chec k Infrom II meter should not be used for Glucos e determination. Draw a venous Glucose and send to the main Lab for analysis. POC [id number] 12:00:38 Test Item Value Reference Range Interpretation Comments Glucose POC (test 138 mg/dL 70-115 H Notify RN or MDIf you code = Glucose POC) consider your patient critically ill, the Merlin-Accu Chec k Infrom II meter should not be used for Glucos e determination. Draw a venous Glucose and send to the main Lab for analysis. POC [id number] 07:41:32 Test Item Value Reference Range Interpretation Comments Glucose POC (test 206 mg/dL 70-115 H Notify RN or MDIf you code = Glucose POC) consider your patient critically ill, the Merlin-Accu Chec k Infrom II meter should not be used for Glucos e determination. Draw a venous Glucose and send to the main Lab for analysis. Urinalysis [id number] 21:07:21 Test Item Value Reference Range Interpretation Comments UA WBC (test code = UA WBC) TNTC 0-5 A UA RBC (test code = UA RBC) 6-10 0-5 A UA Bacteria (test code = UA Bacteria) Profuse A UA Squam Epithelial (test code = UA 6-10 A Squam Epithelial) Urinalysis with Culture, if [id number] 20:35:14 Test Item Value Reference Range Interpretation [...] Micro Indicated Not Indicated A Ind?) POC [id number] 19:06:34 Test Item Value Reference Range Interpretation Comments Glucose POC (test 207 mg/dL 70-115 H If you con medical technologist your code = Glucose POC) patient critically ill, the Merlin-Accu Check Infrom II meter should not be used for Glucose determination. Draw a venous Glucose and send to the main Lab for analysis. POC [id number] 17:12:03 Test Item Value Reference Range Interpretation Comments Glucose POC (test 173 mg/dL 70-115 H Notify RN or MDIf you code = Glucose POC) consider your patient critically ill, the Merlin-Accu Chec k Infrom II meter should not be used for Glucos e determination. Draw a venous Glucose and send to the main Lab for analysis. POC [id number] 11:58:01 Test Item Value Reference Range Interpretation Comments Glucose POC (test 289 mg/dL 70-115 H Notify RN or MDIf you code = Glucose POC) consider your patient critically ill, the Merlin-Accu Chec k Infrom II meter should not be used for Glucos e determination. Draw a venous Glucose and send to the main Lab for analysis. POC Edkhfsd9566-57-03 08:19:37 Test Item Value Reference Range Interpretation Comments Glucose POC (test 201 mg/dL 70-115 H Notify RN or MDIf you code = Glucose POC) consider your patient critically ill, the Merlin-Accu Chec k Infrom II meter should not be used for Glucos e determination. Draw a venous Glucose and send to the main Lab for analysis. POC [id number] 20:37:35 Test Item Value Reference Range Interpretation Comments Glucose POC (test 272 mg/dL 70-115 H If you con medical technologist your code = Glucose POC) patient critically ill, the Merlin-Accu Check Infrom II meter should not be used for Glucose determination. Draw a venous Glucose and send to the main Lab for analysis. POC [id number] 17:23:05 Test Item Value Reference Range Interpretation Comments Glucose POC (test 229 mg/dL 70-115 H If you con medical technologist your code = Glucose POC) patient critically ill, the Merlin-Accu Check Infrom II meter should not be used for Glucose determination. Draw a venous Glucose and send to the main Lab for analysis. POC [id number] 12:01:01 Test Item Value Reference Range Interpretation Comments Glucose POC (test 155 mg/dL 70-115 H If you con medical technologist your code = Glucose POC) patient critically ill, the Merlin-Accu Check Infrom II meter should not be used for Glucose determination. Draw a venous Glucose and send to the main Lab for analysis. POC [id number] 08:07:32 Test Item Value Reference Range Interpretation Comments Glucose POC (test 248 mg/dL 70-115 H If you con medical technologist your code = Glucose POC) patient critically ill, the Merlin-Accu Check Infrom II meter should not be used for Glucose determination. Draw a venous Glucose and send to the main Lab for analysis. IG [id number] 06:50:39 Test Item Value Reference Range Interpretation Comments IG (test code = IG) 0.7 % 0.0-5.0 IG Abs (test code = IG Abs) 0 x10 N Complete Blood Count with Rpktwrasqxkq5336-27-07 06:50:38 Test Item Value Reference Range Interpretation [...] code = IPF) 0 % N Automated Lnwncdttjyle3226-47-94 06:50:38 Test Item Value Reference Range Interpretation Comments Neutro Auto (test code = Neutro 50.3 % 36.0-70.0 Auto) Lymph Auto (test code = Lymph Auto) 38.6 % 12.0-44.0 Lander Auto (test code = Lander Auto) 7.3 % 0.0-11.0 Eos, Auto (test code = Eos, Auto) 2.4 % 0.0-7.0 Basophil Auto (test code = Basophil 0.7 % 0.0-2.0 Auto) Neutro Absolute (test code = Neutro 3.0 x10 1.6-7.4 Absolute) Lymph Absolute (test code = Lymph 2.28 x10 .50-4.60 Absolute) Lander Absolute (test code = Lander .43 x10 .00-1.20 Absolute) Eos Absolute (test code = Eos 0.14 x10 0.00-0.74 Absolute) Baso Absolute (test code = Baso 0.04 x10 0.00-0.21 Absolute) Basic Metabolic [id number] 05:38:20 Test Item Value Reference Range Interpretation [...] = Lipemia) 0 mg/dL 8-11 Basic Metabolic [id number] 05:38:20 Test Item Value Reference Range Interpretation [...] = 0 mg/dL 8-11 Lipemia) Basic Metabolic [id number] 05:38:20 Test Item Value Reference Range Interpretation [...] code = 0 mg/dL 8-11 Lipemia) POC [id number] 20:28:33 Test Item Value Reference Range Interpretation Comments Glucose POC (test 169 mg/dL 70-115 H If you con medical technologist your code = Glucose POC) patient critically ill, the Merlin-Accu Check Infrom II meter should not be used for Glucose determination. Draw a venous Glucose and send to the main Lab for analysis. POC [id number] 16:39:30 Test Item Value Reference Range Interpretation Comments Glucose POC (test 103 mg/dL 70-115 If you con medical technologist your code = Glucose POC) patient critically ill, the Merlin-Accu Check Infrom II meter should not be used for Glucose determination. Draw a venous Glucose and send to the main Lab for analysis. RPR [id number] 12:08:56 Test Item Value Reference Range Interpretation Comments RPR Qual (test code = RPR Qual) Non-Reactive Non-Reactive Reactive Control (test code = Reactive Reactive Control) Weak Reactive Control (test Weak Reactive code = Weak Reactive Control) Non-Reactive Control (test code Non-Reactive = Non-Reactive Control) Lot # (test code = Lot #) [id number] Expiration Dt (test code = 03-20-2021 N Expiration Dt) POC [id number] 11:52:31 Test Item Value Reference Range Interpretation Comments Glucose POC (test 250 mg/dL 70-115 H If you con medical technologist your code = Glucose POC) patient critically ill, the Merlin-Accu Check Infrom II meter should not be used for Glucose determination. Draw a venous Glucose and send to the main Lab for analysis. POC [id number] 07:55:29 Test Item Value Reference Range Interpretation Comments Glucose POC (test 205 mg/dL 70-115 H If you con medical technologist your code = Glucose POC) patient critically ill, the Merlin-Accu Check Infrom II meter should not be used for Glucose determination. Draw a venous Glucose and send to the main Lab for analysis. Lipid [id number] 05:46:04 Test Item Value Reference Range Interpretation [...] LDL/HDL Ratio=L DL Calc/HDL Chol Thyroid Stimulating [id number] 05:46:04 Test Item Value Reference Range Interpretation Comments TSH (test code = TSH) 3.274 mcIU/mL 0.550-4.780 Hemoglobin [id number] 05:41:08 Test Item Value Reference Range Interpretation Comments Hemoglobin A1c (test code 7.6 % 4.0-5.8 H Di abetic >=6.5 = Hemoglobin A1c) %Prediabet es 5.7-6.4 %Normal <5.7 % Hepatitis B Surface [id number] 21:19:36 Test Item Value Reference Range Interpretation Comments Hep Bs Ag (test code = Hep Bs Non-Reactive Non-Reactive Ag) Novel Coronavirus SARS-CoV-2, [id number] 11:16:16 Test Item Value Reference Range Interpretation [...] Emergency Use Authorization." Novel Coronavirus (COVID-19), EMANUEL [id number] 11:11:24TNPTest not sent and performed at [facility].Rapid was perfomed in Microbiology.Wrong covid test was ord ered.Urine DOA [id number] 00:17:49 Test Item Value Reference Range Interpretation [...] days. U Propoxyphene (test Negative Negative [facility] is code = U Propoxyphene) presu mptive positive if the analyte concentration i s equal to or greater t scott 300 ng/ml.If confir mation of positive res ult is desired, please order Propoxyphene Confirmation wi thin 7 days. Alcohol [id number] 00:17:29 Test Item Value Reference Range Interpretation Comments Ethanol Level 9.0 mg/dL N The pharmacolo gical (test code = response to blo od alcohol Ethanol Level) levels may va ry from individual to i ndividual. The fatal omkar ntration has been report ed to be >400 mg/dl. Comprehensive Metabolic [id number] 00:17:28 Test Item Value Reference Range Interpretation [...] = Lipemia) 0 g/dL 1-2 Comprehensive Metabolic [id number] 00:17:28 Test Item Value Reference Range Interpretation [...] = 0 g/dL 1-2 Lipemia) Comprehensive Metabolic [id number] 00:17:28 Test Item Value Reference Range Interpretation [...] g/dL 1-2 Lipemia) Complete Blood Count with [id number] 23:26:28 Test Item Value Reference Range Interpretation [...] code = IPF) 0 % N Automated [id number] 23:26:28 Test Item Value Reference Range Interpretation Comments Neutro Auto (test code = Neutro 67.1 % 36.0-70.0 Auto) Lymph Auto (test code = Lymph Auto) 23.3 % 12.0-44.0 Lander Auto (test code = Lander Auto) 5.8 % 0.0-11.0 Eos, Auto (test code = Eos, Auto) 2.3 % 0.0-7.0 Basophil Auto (test code = Basophil 0.8 % 0.0-2.0 Auto) Neutro Absolute (test code = Neutro 6.0 x10 1.6-7.4 Absolute) Lymph Absolute (test code = Lymph 2.10 x10 .50-4.60 Absolute) Lander Absolute (test code = Lander .52 x10 .00-1.20 Absolute) Eos Absolute (test code = Eos 0.21 x10 0.00-0.74 Absolute) Baso Absolute (test code = Baso 0.07 x10 0.00-0.21 Absolute) IG [id number] 23:26:28 Test Item Value Reference Range Interpretation Comments IG (test code = IG) 0.7 % 0.0-5.0 IG Abs (test code = IG Abs) 0 x10 N HERPES VIRUS ANTIBODY, [id number] 21:46:00 Test Item Value Reference Range Interpretation Comments HERPES VIRUS IGM ([facility]) Negative SE E ATTACHMENT (test code = 1808) BLOOD [id number] 06:00:00 Test Item Value Reference Range Interpretation Comments CULTURE (BEAKER) (test No growth in 5 days code = 1095) BLOOD [id number] 06:00:00 Test Item Value Reference Range Interpretation Comments CULTURE (BEAKER) (test No growth in 5 days code = 1095) POCT-GLUCOSE [id number] 12:11:00 Test Item Value Reference Range Interpretation Comments POC-GLUCOSE METER 154 mg/dL 70-110 H TESTED AT [place] [address] ([facility]) (test code = [facility] 1538) [address] POCT-GLUCOSE [id number] 07:53:00 Test Item Value Reference Range Interpretation Comments POC-GLUCOSE METER 87 mg/dL 70-110 TESTED AT [place] [address] ([facility]) (test code = [facility] [address] 1538) POCT-GLUCOSE [id number] 06:49:00 Test Item Value Reference Range Interpretation Comments POC-GLUCOSE METER 79 mg/dL 70-110 TESTED AT [place] [address] ([facility]) (test code = [facility] [address] 1538) COMPREHENSIVE METABOLIC [id number] 06:15:00 Test Item Value Reference Range Interpretation [...] S NOT APPLICABLE FOR DIALYSIS PATIEN TS. [id number] 06:11:00 Test Item Value Reference Range Interpretation Comments MAGNESIUM (BEAKER) (test code = 2.1 mg/dL 1.6-2.6 627) HEPATIC FUNCTION [id number] 06:11:00 Test Item Value Reference Range Interpretation [...] code = 513 U/L 6-55 H 347) [id number] 05:30:00 Test Item Value Reference Range Interpretation Comments FIBRINOGEN LEVEL (BEAKER) (test 368 mg/dl 225-434 code = 658) [id number] 05:30:00 Test Item Value Reference Range Interpretation Comments PARTIAL THROMBOPLASTIN TIME 42.2 seconds 22.5-36.0 H (BEAKER) (test code = 760) PROTHROMBIN [id number] 05:29:00 Test Item Value Reference Range Interpretation Comments PROTIME (BEAKER) (test code = 14.8 seconds 11.7-14.7 H 759) INR (BEAKER) (test code = 370) 1.2 <=5.9 RECOMMENDED COUMADIN/WARFARIN INR THERAPY RANGESSTANDARD DOSE: 2.0 - 3.0 Includes: PROPHYLAXIS for venous thrombosis, systemic embolization; TREATMENT for venous thrombosis and/or pulmonary embolus.HIGH RISK: Target INR is 2.5-3.5 for patients with mechanical heart valves.POCT-GLUCOSE [id number] 21:09:00 Test Item Value Reference Range Interpretation Comments POC-GLUCOSE METER 178 mg/dL 70-110 H TESTED AT [place] [address] ([facility]) (test code = [facility] 1538) [address] POCT-GLUCOSE [id number] 17:18:00 Test Item Value Reference Range Interpretation Comments POC-GLUCOSE METER 178 mg/dL 70-110 H TESTED AT [place] [address] ([facility]) (test code = [facility] 1538) [address] POCT-GLUCOSE [id number] 13:48:00 Test Item Value Reference Range Interpretation Comments POC-GLUCOSE METER 150 mg/dL 70-110 H TESTED AT [place] [address] ([facility]) (test code = 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) (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 G 1807) CYTOMEGALOVIRUS ANTIBODY, [id number] 08:59:00 Test Item Value Reference Range Interpretation Comments CYTOMEGALOVIRUS IGG ANTIBODY Positive (CHANDNIAKER) (test code = 790) EBV-VCA ANTIBODY, [id number] 08:59:00 Test Item Value Reference Range Interpretation Comments JASE-WALL VCA IGG (BEAKER) (test Positive code = 983) EBV-VCA ANTIBODY, [id number] 08:59:00 Test Item Value Reference Range Interpretation Comments JASE-WALL VCA IGM (BEAKER) (test Negative code = 984) POCT-GLUCOSE [id number] 07:59:00 Test Item Value Reference Range Interpretation Comments POC-GLUCOSE METER 81 mg/dL 70-110 TESTED AT [facility] [address] ([facility]) (test code = [place] [facility] [address] 1538) COMPREHENSIVE METABOLIC [id number] 06:23:00 Test Item Value Reference Range Interpretation [...] S NOT APPLICABLE FOR DIALYSIS PATIEN TS. [id number] 06:17:00 Test Item Value Reference Range Interpretation Comments MAGNESIUM (BEAKER) (test code = 1.8 mg/dL 1.6-2.6 627) HEPATIC FUNCTION [id number] 06:17:00 Test Item Value Reference Range Interpretation [...] code = 779 U/L 6-55 H 347) [id number] 06:00:00 Test Item Value Reference Range Interpretation Comments FIBRINOGEN LEVEL (BEAKER) (test 390 mg/dl 225-434 code = 658) [id number] 06:00:00 Test Item Value Reference Range Interpretation Comments PARTIAL THROMBOPLASTIN TIME 40.2 seconds 22.5-36.0 H ([facility]) (test code = 760) PROTHROMBIN [id number] 05:59:00 Test Item Value Reference Range Interpretation Comments PROTIME ([facility]) (test code = 14.6 seconds 11.7-14.7 759) INR ([facility]) (test code = 370) 1.2 <=5.9 RECOMMENDED COUMADIN/WARFARIN INR THERAPY RANGESSTANDARD DOSE: 2.0 - 3.0 Includes: PROPHYLAXIS for venous thrombosis, systemic embolization; TREATMENT for venous thrombosis and/or pulmonary embolus.HIGH RISK: Target INR is 2.5-3.5 for patients with mechanical heart valves.POCT-GLUCOSE [id number] 21:46:00 Test Item Value Reference Range Interpretation Comments POC-GLUCOSE METER 153 mg/dL 70-110 H TESTED AT [place] [address] ([facility]) (test code = [place] [facility] 1538) [address] POCT-GLUCOSE [id number] 18:47:00 Test Item Value Reference Range Interpretation Comments POC-GLUCOSE METER 181 mg/dL 70-110 H TESTED AT [place] [address] ([facility]) (test code = [place] [facility] 1538) [address] POCT-GLUCOSE [id number] 12:40:00 Test Item Value Reference Range Interpretation Comments POC-GLUCOSE METER 178 mg/dL 70-110 H TESTED AT [place] [address] ([facility]) (test code = [facility] 1538) [address] POCT-GLUCOSE [id number] 07:51:00 Test Item Value Reference Range Interpretation Comments POC-GLUCOSE METER 166 mg/dL 70-110 H TESTED AT [place] [address] ([facility]) (test code = [facility] 1538) [address] COMPREHENSIVE METABOLIC [id number] 03:26:00 Test Item Value Reference Range Interpretation Comments TOTAL PROTEIN 5.2 gm/dL 6.0-8.3 L ([facility]) (test code = 770) ALBUMIN ([facility]) 2.3 g/dL 3.5-5.0 L (test [...] S NOT APPLICABLE FOR DIALYSIS PATIEN TS. [id number] 03:22:00 Test Item Value Reference Range Interpretation Comments MAGNESIUM (BEAKER) (test code = 1.4 mg/dL 1.6-2.6 L 627) HEPATIC FUNCTION [id number] 03:22:00 Test Item Value Reference Range Interpretation [...] code = 1009 U/L 6-55 H 347) [id number] 03:12:00 Test Item Value Reference Range Interpretation Comments AMMONIA (BEAKER) (test code = 348) 29 mol/L 18-72 [id number] 03:10:00 Test Item Value Reference Range Interpretation Comments PARTIAL THROMBOPLASTIN TIME 42.3 seconds 22.5-36.0 H (BEAKER) (test code = 760) PROTHROMBIN [id number] 03:09:00 Test Item Value Reference Range Interpretation Comments PROTIME (BEAKER) (test code = 16.4 seconds 11.7-14.7 H 759) INR (BEAKER) (test code = 370) 1.3 <=5.9 RECOMMENDED COUMADIN/WARFARIN INR THERAPY RANGESSTANDARD DOSE: 2.0 - 3.0 Includes: PROPHYLAXIS for venous thrombosis, systemic embolization; TREATMENT for venous thrombosis and/or pulmonary embolus.HIGH RISK: Target INR is 2.5-3.5 for patients with mechanical heart valves.[id number] 03:09:00 Test Item Value Reference Range Interpretation Comments FIBRINOGEN LEVEL (BEAKER) (test 413 mg/dl 225-434 code = 658) CBC W/PLT COUNT & AUTO [id number] 03:09:00 Test Item Value Reference Range Interpretation [...] L 0.00-0.20 (test code = 417) 0.00POCT-GLUCOSE [id number] 22:33:00 Test Item Value Reference Range Interpretation Comments POC-GLUCOSE METER 230 mg/dL 70-110 H TESTED AT [facility] 67 ([facility]) (test code = [facility] 1538) [address] POCT-GLUCOSE [id number] 18:17:00 Test Item Value Reference Range Interpretation Comments POC-GLUCOSE METER 222 mg/dL 70-110 H TESTED AT [facility] 67[address] ([facility]) (test code = [facility] 1538) [address] COMPREHENSIVE METABOLIC [id number] 16:59:00 Test Item Value Reference Range Interpretation [...] PATIEN TS. PERIPHERAL BLOOD SMEAR - PATHOLOGIST [id number] 15:30:00 Test Item Value Reference Range Interpretation Comments RBC MORPHOLOGY Polychromasia (BEAKER) (test code = 2846) RBC MORPHOLOGY Anisocytosis (BEAKER) (test code = 68461) PERIPHERAL SMR REVIEW Cell counts confirmed (BEAKER) (test code = 2700) [id number] Josefina Lara M.D. (BEAKER) (test code = (electronic signature) 4450) PROTHROMBIN [id number] 15:12:00 Test Item Value Reference Range Interpretation [...] Reference Range Interpretation Comments ANTI-NUCLEAR ANTIBODY (IVETTE) (US Biologic) Negative Negative (test code = 418) POCT-GLUCOSE [id number] 12:47:00 Test Item Value Reference Range Interpretation Comments POC-GLUCOSE METER 212 mg/dL 70-110 H TESTED AT [facility] 67[address] (US Biologic) (test code = [place] 1538) [address] [id number] 12:34:00 Test Item Value Reference Range Interpretation Comments RPR SCREEN (US Biologic) (test code = Nonreactive Nonreactive 420) CLOSTRIDIUM DIFFICILE TOXIN [id number] 10:12:00 Test Item Value Reference Range Interpretation Comments CLOSTRIDIUM DIFFICILE TOXIN, PCR Not Detected Not Detected (US Biologic) (test code = 1525) This qualitative real-time [...] Reference Range Interpretation Comments FACTOR V ACTIVITY (US Biologic) (test code 86.0 % 60.0-150.0 = 665) Effective 10/24/2013: Reference Range Change-Adult onlyNew: 60.0-150.0 Previous: 50.0-150.0FACTOR 5 ACTIVITY (BLEEDING RISK)2017-01-04 09:13:00 Test Item Value Reference Range Interpretation Comments FACTOR V ACTIVITY (BEAKER) (test code 56.0 % 60.0-150.0 L = 665) Effective 10/24/2013: Reference Range Change-Adult onlyNew: 60.0-150.0 Previous: 50.0-150.0POCT-GLUCOSE [id number] 06:40:00 Test Item Value Reference Range Interpretation Comments POC-GLUCOSE METER 167 mg/dL 70-110 H TESTED AT [facility] 6720 (BEAKER) (test code = [place] 1538) [address] COMPREHENSIVE METABOLIC [id number] 04:08:00 Test Item Value Reference Range Interpretation [...] ESTIM ATED GFR. Specimen slightly ictericHEPATIC FUNCTION [id number] 04:06:00 Test Item Value Reference Range Interpretation [...] 1091 U/L 6-55 H 347) Specimen slightly [id number] 04:01:00 Test Item Value Reference Range Interpretation Comments FIBRINOGEN LEVEL (BEAKER) (test 379 mg/dl 225-434 code = 658) [id number] 04:01:00 Test Item Value Reference Range Interpretation Comments PARTIAL THROMBOPLASTIN TIME 40.7 seconds 22.5-36.0 H (BEAKER) (test code = 760) PROTHROMBIN [id number] 04:00:00 Test Item Value Reference Range Interpretation [...] mechanical heart valves.CBC W/PLT COUNT & AUTO [id number] 03:56:00 Test Item Value Reference Range Interpretation [...] L 0.00-0.20 (test code = 417) 0.00POCT-GLUCOSE [id number] 00:19:00 Test Item Value Reference Range Interpretation Comments POC-GLUCOSE METER 159 mg/dL 70-110 H TESTED AT [facility] 6720 (BEAKER) (test code = [place] 1538) [address] POCT-GLUCOSE [id number] 18:56:00 Test Item Value Reference Range Interpretation Comments POC-GLUCOSE METER 192 mg/dL 70-110 H TESTED AT [facility] 6720 (BEAKER) (test code = [place] 1538) [address] COMPREHENSIVE METABOLIC [id number] 16:55:00 Test Item Value Reference Range Interpretation [...] CALCULATE ESTIM ATED GFR. Specimen slightly ictericPROTHROMBIN [id number] 16:37:00 Test Item Value Reference Range Interpretation Comments PROTIME (BEAKER) (test code = 20.9 seconds 11.7-14.7 H 759) INR (BEAKER) (test code = 370) 1.8 <=5.9 RECOMMENDED COUMADIN/WARFARIN INR THERAPY RANGESSTANDARD DOSE: 2.0 - 3.0 Includes: PROPHYLAXIS for venous thrombosis, systemic embolization; TREATMENT for venous thrombosis and/or pulmonary embolus.HIGH RISK: Target INR is 2.5-3.5 for patients with mechanical heart valves.HEPATITIS B SURFACE [id number] 14:05:00 Test Item Value Reference Range Interpretation Comments HEPATITIS B SURFACE ANTIBODY < mIU/mL <8.0 (BEAKER) (test code = 647) HEPATITIS B CORE ANTIBODY, [id number] 13:43:00 Test Item Value Reference Range Interpretation Comments HEPATITIS B CORE TOTAL ANTIBODY Nonreactive Nonreactive (BEAKER) (test code = 497) BLOOD GAS, [id number] 13:35:00 Test Item Value Reference Range Interpretation [...] code = 1819) 28.0 % URINALYSIS W/ [id number] 13:16:00 Test Item Value Reference Range Interpretation [...] 1584) SOURCE(BEAKER) (test code = Urine, [place] 3375) VITAMIN D, 94-[id number] 13:14:00 Test Item Value Reference Range Interpretation Comments VITAMIN D 25-OH (BEAKER) (test code = < ng/mL 13.0-47.8 L 2764) ALPHA FETOPROTEIN (AFP), TUMOR [id number] 13:06:00 Test Item Value Reference Range Interpretation Comments ALPHA-FETOPROTEIN (BEAKER) (test code < ng/mL <10.0 = 1094) Effective 05/08/2014: Reference Range ChangeNew: <10.0 Previous: 0.0-8.0 HEMOGLOBIN [id number] 13:05:00 Test Item Value Reference Range Interpretation Comments HEMOGLOBIN A1C (BEAKER) (test code = 7.6 % 4.3-6.1 H 368) CARCINOEMBRYONIC ANTIGEN (CEA)2017-01-03 12:59:00 Test Item Value Reference Range Interpretation Comments CARCINOEMBRYONIC ANTIGEN (BEAKER) 2.0 ng/mL 0.0-5.0 (test code = 685) [id number] 12:59:00 Test Item Value Reference Range Interpretation Comments FERRITIN (BEAKER) (test code = 1841 ng/mL 5-275 H 361) Effective 05/08/2014: Reference Range ChangeNew: Male 5-275 Previous: Male 22- 322 Female 5-275 Female [id number] 12:58:00 Test Item Value Reference Range Interpretation Comments T4 TOTAL (BEAKER) (test code = 895) 4.5 ug/dL 4.9-11.7 L [id number] 12:58:00 Test Item Value Reference Range Interpretation Comments THYROID STIMULATING HORMONE 1.79 uIU/mL 0.35-4.94 (BEAKER) (test code = 772) [id number] 12:58:00 Test Item Value Reference Range Interpretation Comments T3 TOTAL (BEAKER) (test code = 656) 34 ng/dL 48-159 L Effective 05/08/2014: Reference Range ChangeNew: 48-159 Previous: 60-181CALCIUM, [id number] 12:47:00 Test Item Value Reference Range Interpretation Comments CALCIUM IONIZED (BEAKER) (test 1.05 mmol/L 1.12-1.27 L code = 698) PH, BLOOD (BEAKER) (test code = 7.43 1810) [id number] 12:42:00 Test Item Value Reference Range Interpretation [...] % 20-55 (test code = 2590) URIC [id number] 12:40:00 Test Item Value Reference Range Interpretation Comments URIC ACID (BEAKER) (test code = 16.0 mg/dL 2.6-7.2 H 773) Specimen slightly ictericLIPID [id number] 12:40:00 Test Item Value Reference Range Interpretation [...] 160-189 Very High >=190 Specimen slightly ictericBILIRUBIN, [id number] 12:40:00 Test Item Value Reference Range Interpretation Comments BILIRUBIN DIRECT (MADIE) (test 2.4 mg/dL 0.1-0.5 H code = 706) GAMMA GLUTAMYL TRANSFERASE (GGT)2017-01-03 12:40:00 Test Item Value Reference Range Interpretation Comments GAMMA GLUTAMYL TRANSFERASE (MADIE) 53 U/L 9-64 (test code = 364) Specimen slightly [id number] 12:39:00 Test Item Value Reference Range Interpretation Comments ETHANOL (MADIE) (test code = 400) < mg/dL <=10 SCREEN, [id number] 12:36:00 Test Item Value Reference Range Interpretation Comments TEST URINE (IPTEGOILIANA) (test Negative code = 583) POCT-GLUCOSE [id number] 12:34:00 Test Item Value Reference Range Interpretation Comments POC-GLUCOSE METER 189 mg/dL 70-110 H TESTED AT [facility] 6720 (MADIE) (test code = [place] [facility] 1538) [address] HIV-1 ANTIGEN WITH HIV-1/2 [id number] 11:58:00 Test Item Value Reference Range Interpretation Comments HIV-1 ANTIGEN WITH HIV 1\\T\\2 Nonreactive Nonreactive ANTIBODY (2) (US Biologic) (test code = 2586) TROPONIN [id number] 09:44:00 Test Item Value Reference Range Interpretation Comments TROPONIN I (IPTEGOILIANA) (test code = 0.34 ng/mL 0.00-0.03 397) [...] 0.0-4.9CK-MB Reference Range:<6.7 Normal6.7-10.0 Borderline>10.0 Abnormal ACETAMINOPHEN [id number] 08:31:00 Test Item Value Reference Range Interpretation Comments ACETAMINOPHEN LEVEL (BEAKER) (test < ug/mL 10.0-30.0 L code = 344) TROPONIN [id number] 05:53:00 Test Item Value Reference Range Interpretation [...] acute neurological disease, and persistent tachyarrhythmia.BASIC METABOLIC [id number] 05:53:00 Test Item Value Reference Range Interpretation [...] TO CALCULA TE ESTIMATED GFR. Specimen slightly [id number] 05:52:00 Test Item Value Reference Range Interpretation Comments PHOSPHORUS (BEAKER) (test code = 5.7 mg/dL 2.3-4.7 H 604) HEPATIC FUNCTION [id number] 05:52:00 Test Item Value Reference Range Interpretation [...] Specimen slightly ictericCREATINE KINASE (CK), TOTAL AND [id number] 05:52:00 Test Item Value Reference Range Interpretation Comments CREATINE KINASE TOTAL (BEAKER) 341 U/L 29-200 H (test code = 380) CREATINE KINASE-MB (BEAKER) (test 5.4 ng/mL 0.0-6.6 code = 750) CREATINE KINASE-MB INDEX (BEAKER) 1.6 % (test code = 395) Effective 05/08/2014: CK-MB Reference Range ChangeNew: 0.0-6.6 Previous: 0.0-4.9CK-MB Reference Range:<6.7 Normal6.7-10.0 Borderline>10.0 Abnormal CBC W/PLT COUNT & AUTO [id number] 05:48:00 Test Item Value Reference Range Interpretation [...] K/ L 0.00-0.20 (test code = 417) [id number] 05:09:00 Test Item Value Reference Range Interpretation Comments FIBRINOGEN LEVEL (BEAKER) (test 427 mg/dl 225-434 code = 658) [id number] 05:09:00 Test Item Value Reference Range Interpretation Comments PARTIAL THROMBOPLASTIN TIME 36.2 seconds 22.5-36.0 H (BEAKER) (test code = 760) PROTHROMBIN [id number] 05:08:00 Test Item Value Reference Range Interpretation Comments PROTIME (BEAKER) (test code = 22.8 seconds 11.7-14.7 H 759) INR (BEAKER) (test code = 370) 2.0 <=5.9 RECOMMENDED COUMADIN/WARFARIN INR THERAPY RANGESSTANDARD DOSE: 2.0 - 3.0 Includes: PROPHYLAXIS for venous thrombosis, systemic embolization; TREATMENT for venous thrombosis and/or pulmonary embolus.HIGH RISK: Target INR is 2.5-3.5 for patients with mechanical heart valves.HEPATITIS PANEL, [id number] 03:40:00 Test Item Value Reference Range Interpretation Comments HEPATITIS A IGM ANTIBODY (BEAKER) Nonreactive Nonreactive (test code = 498) HEPATITIS B CORE IGM ANTIBODY Nonreactive Nonreactive (BEAKER) (test code = 645) HEPATITIS C ANTIBODY (BEAKER) Nonreactive Nonreactive (test code = 367) HEPATITIS B SURFACE ANTIGEN (2) Nonreactive Nonreactive (BEAKER) (test code = 2585) CREATININE, RANDOM [id number] 03:18:00 Test Item Value Reference Range Interpretation Comments CREATININE URINE (BEAKER) (test 118.7 mg/dL code = 375) Reference Range: No NormalsSODIUM, RANDOM [id number] 03:18:00 Test Item Value Reference Range Interpretation Comments SODIUM URINE (BEAKER) (test code = 60 meq/L 243) Reference Range: No NormalsUREA NITROGEN, RANDOM [id number] 03:18:00 Test Item Value Reference Range Interpretation Comments UREA NITROGEN URINE (BEAKER) (test 303 mg/dL code = 538) Reference Range: No [id number] 03:07:00 Test Item Value Reference Range Interpretation Comments AMMONIA (BEAKER) (test code = 348) 48 mol/L 18-72 [id number] 02:57:00 Test Item Value Reference Range Interpretation [...] within 95-100% range. URINALYSIS W/ REFLEX URINE [id number] 02:53:00 Test Item Value Reference Range Interpretation [...] = 514) SOURCE(BEAKER) (test code = 2795) [id number] 02:49:00 Test Item Value Reference Range Interpretation Comments PARTIAL THROMBOPLASTIN TIME 39.4 seconds 22.5-36.0 H (BEAKER) (test code = 760) PROTHROMBIN [id number] 02:48:00 Test Item Value Reference Range Interpretation Comments PROTIME (BEAKER) (test code = 22.0 seconds 11.7-14.7 H 759) INR (BEAKER) (test code = 370) 1.9 <=5.9 RECOMMENDED COUMADIN/WARFARIN INR THERAPY RANGESSTANDARD DOSE: 2.0 - 3.0 Includes: PROPHYLAXIS for venous thrombosis, systemic embolization; TREATMENT for venous thrombosis and/or pulmonary embolus.HIGH RISK: Target INR is 2.5-3.5 for patients with mechanical heart valves.[id number] 02:48:00 Test Item Value Reference Range Interpretation Comments FIBRINOGEN LEVEL (BEAKER) (test 421 mg/dl 225-434 code = 658) BLOOD GAS, [id number] 02:43:00 Test Item Value Reference Range Interpretation [...] 21.0 % CBC W/PLT COUNT & AUTO [id number] 02:43:00 Test Item Value Reference Range Interpretation [...] code = 417) 0.00LACTIC ACID, VENOUS, WHOLE [id number] 02:35:00 Test Item Value Reference Range Interpretation Comments LACTATE BLOOD VENOUS (2) (BEAKER) 0.8 mmol/L 0.5-2.2 (test code = 2872) Effective 10/23/2015: Units/Reference Range ChangeNew: 0.5-2.2 mmol/L Previous: 5- 20 mg/dLSpecimen slightly [id number] 11:32:00 Test Item Value Reference Range Interpretation Comments AGAP (test code = AGAP) 14.6 10.0-20.0 [id number] 11:32:00 Test Item Value Reference Range Interpretation Comments eGFR (test code = eGFR) 33 [facility] [id number] 11:32:00 Test Item Value Reference Range Interpretation Comments Calcium Lvl (test code = Calcium Lvl) 8.3 8.5-10.5 [facility]JegkufxJHDKZTDBENTI4129-03-16 11:32:00 Test Item Value Reference Range Interpretation Comments Glucose Lvl (test code = Glucose Lvl) 81 70-99 [facility] HospitalEtpiczwAOGKHEUFUFVP4193-51-60 11:32:00 Test Item Value Reference Range Interpretation Comments Creatinine Lvl (test code = Creatinine 1.95 0.50-1.40 Lvl) [facility] HospitalNpwjsquWCYTDTDSTJXC3937-64-22 11:32:00 Test Item Value Reference Range Interpretation Comments BUN (test code = BUN) 55 7-22 [facility] HospitalTateqhkSZNWLEWJGIGV7616-94-49 11:32:00 Test Item Value Reference Range Interpretation Comments CO2 (test code = CO2) 19 24-32 [facility] HospitalHazrafbDLTRGFODELKG5788-76-56 11:32:00 Test Item Value Reference Range Interpretation Comments Chloride Lvl (test code = Chloride Lvl) 110 95-109 [facility] HospitalNuzqgimRZCRPPMAKXLB0094-22-65 11:32:00 Test Item Value Reference Range Interpretation Comments Sodium Lvl (test code = Sodium Lvl) 139 135-145 [facility] HospitalEyabgjcBYHEUIMJZMLC5038-55-12 11:32:00 Test Item Value Reference Range Interpretation Comments Potassium Lvl (test code = Potassium 4.6 3.5-5.1 Lvl) [facility] HospitalYmermcyISXCFZPDOB1133-69-42 11:32:00 Test Item Value Reference Range Interpretation Comments Lymphocytes (test code = Lymphocytes) 30.4 20.0-40.0 [facility] HospitalEhghhapBAVNYABVFV0609-41-13 11:32:00 Test Item Value Reference Range Interpretation Comments Eosinophils (test code = 4.5 See_Comment [A utomated message] The Eosinophils) system which ge nerated this result tra nsmitted reference range : <=4.0. The reference r leo was not used to int erpret this result as normal/abnormal . [facility] HospitalXifqmnlHZVJVPYUMD1649-06-33 11:32:00 Test Item Value Reference Range Interpretation Comments Monocytes (test code = Monocytes) 13.7 2.0-12.0 [facility] HospitalMvtucyxCUSWQOGNII9641-84-62 11:32:00 Test Item Value Reference Range Interpretation Comments Segs-Bands # (test code = Segs-Bands #) 2.6 1.5-8.1 [facility] HospitalDjsloxrWQOSJGPLKM0901-06-57 11:32:00 Test Item Value Reference Range Interpretation Comments Basophils (test code = 0.7 See_Comment [Aut omated message] The Basophils) system which ge nerated this result tra nsmitted reference range : <=1.0. The reference r leo was not used to int erpret this result as normal/abnormal . [facility] HospitalPekgjamUEFEZFEBCZ4522-25-66 11:32:00 Test Item Value Reference Range Interpretation Comments Monocytes # (test code 0.7 See_Comment [Aut omated message] The = Monocytes #) system which generated this result tra nsmitted reference range : <=0.8. The reference r leo was not used to int erpret this result as normal/abnormal . [facility] HospitalGtnapiuIKWFAPSDDX5356-30-55 11:32:00 Test Item Value Reference Range Interpretation Comments Lymphocytes # (test code = Lymphocytes 1.6 1.0-5.5 #) [facility] HospitalKmxjgumRAHSHFLCOD9389-19-48 11:32:00 Test Item Value Reference Range Interpretation Comments Eosinophils # (test code 0.2 See_Comment [A utomated message] The = Eosinophils #) system whic h generated this result tra nsmitted reference range : <=0.5. The reference r leo was not used to int erpret this result as normal/abnormal . [facility] HospitalUvlkhjtOMQZSNCHSY2720-45-15 11:32:00 Test Item Value Reference Range Interpretation Comments Segs (test code = Segs) 50.7 45.0-75.0 [facility] HospitalEsjotvsVKJVHNMQQA3200-85-88 11:32:00 Test Item Value Reference Range Interpretation [...] iron deficiency anemia, and renal disease. CPT: 92800 [facility] HospitalKoaqtlaSICGCTYTMU9028-76-94 11:32:00 Test Item Value Reference Range Interpretation Comments Hct (test code = Hct) 28.1 36.0-48.0 [facility] HospitalZtxmldlNYZRAJLJVF8894-70-81 11:32:00 Test Item Value Reference Range Interpretation Comments RBC (test code = RBC) 3.39 4.20-5.40 [facility] HospitalArpyahuJITDHLWZHG0990-11-05 11:32:00 Test Item Value Reference Range Interpretation Comments Hgb (test code = Hgb) 8.9 12.0-16.0 [facility] HospitalBuxebbuFDBRGDPWCY0061-68-71 11:32:00 Test Item Value Reference Range Interpretation Comments WBC (test code = WBC) 5.1 3.7-10.4 [facility] HospitalCwdandlWBFSVISTDN1803-07-58 11:32:00 Test Item Value Reference Range Interpretation Comments MPV (test code = MPV) 11.3 7.4-10.4 [facility] HospitalUifvylgBJFYCPRARX5544-44-79 11:32:00 Test Item Value Reference Range Interpretation Comments Platelet (test code = Platelet) 118 133-450 [facility] HospitalFtydtfaLSJQQBTQGZ1185-17-68 11:32:00 Test Item Value Reference Range Interpretation Comments MCHC (test code = MCHC) 31.8 32.0-36.0 [facility] HospitalRujcvizQVEKIPNWAB5812-92-59 11:32:00 Test Item Value Reference Range Interpretation Comments RDW (test code = RDW) 18.0 11.5-14.5 [facility] HospitalFdaufwsJGKCIDXXVA8028-55-80 11:32:00 Test Item Value Reference Range Interpretation Comments MCV (test code = MCV) 83.0 80.0-98.0 [facility] HospitalJwxhkoeYWQBUDJQNN3364-77-77 11:32:00 Test Item Value Reference Range Interpretation Comments MCH (test code = MCH) 26.4 pg 27.0-31.0 [facility]voetweXUHEDHOQWP0973-72-21 11:32:00 Test Item Value Reference Range Interpretation Comments C3 Complement (test code = C3 137 88-201 Complement) [facility] HospitalZpnheqgQQLZOLAOQL6083-57-33 11:32:00 Test Item Value Reference Range Interpretation Comments HIV. (test code = Negative *NA*(07/30/16 HIV.) 5:32 AM) [facility] HospitalJdsjlwkAICKKMBGQZSL4422-10-44 11:32:00 Test Item Value Reference Range Interpretation Comments AGAP (test code = AGAP) 14.6 10.0-20.0 [facility] HospitalUbkhxdoCYSLXDGIVFOM1535-31-19 11:32:00 Test Item Value Reference Range Interpretation Comments eGFR (test code = eGFR) 33 [facility] HospitalHprptfbENZSJMZHRLCZ8586-49-70 11:32:00 Test Item Value Reference Range Interpretation Comments Calcium Lvl (test code = Calcium Lvl) 8.3 8.5-10.5 [facility] HospitalUtogadnJZHTASWAUUWU6247-69-70 11:32:00 Test Item Value Reference Range Interpretation Comments Glucose Lvl (test code = Glucose Lvl) 81 70-99 [facility] HospitalBpebglfLFISCBFNPZVS0857-22-78 11:32:00 Test Item Value Reference Range Interpretation Comments Creatinine Lvl (test code = Creatinine 1.95 0.50-1.40 Lvl) [facility] HospitalOqpsmjiLFDMVTEZMOTY9643-09-78 11:32:00 Test Item Value Reference Range Interpretation Comments BUN (test code = BUN) 55 7-22 [facility] HospitalLwzxpyhRUHDIIRPMAPV3743-91-88 11:32:00 Test Item Value Reference Range Interpretation Comments CO2 (test code = CO2) 19 24-32 [facility] HospitalOjkspzsWJZVFHSOLSSN9208-49-76 11:32:00 Test Item Value Reference Range Interpretation Comments Chloride Lvl (test code = Chloride Lvl) 110 95-109 [facility] HospitalDtkztskMICDFZNJOZNF8515-08-38 11:32:00 Test Item Value Reference Range Interpretation Comments Sodium Lvl (test code = Sodium Lvl) 139 135-145 [facility] HospitalCpaxdtwEJSTOCZDCDHW3065-16-20 11:32:00 Test Item Value Reference Range Interpretation Comments Potassium Lvl (test code = Potassium 4.6 3.5-5.1 Lvl) [facility]wlallHUGFZFHPAU0922-18-27 11:32:00 Test Item Value Reference Range Interpretation Comments Lymphocytes (test code = Lymphocytes) 30.4 20.0-40.0 [facility] HospitalNuktfddTUALBSDZZP4525-47-79 11:32:00 Test Item Value Reference Range Interpretation Comments Eosinophils (test code = 4.5 See_Comment [A utomated message] The Eosinophils) system which ge nerated this result tra nsmitted reference range : <=4.0. The reference r leo was not used to int erpret this result as normal/abnormal . [facility] HospitalMhlrlrmUXOZTMTTYO0185-53-30 11:32:00 Test Item Value Reference Range Interpretation Comments Monocytes (test code = Monocytes) 13.7 2.0-12.0 [facility] HospitalXxunyjdRDHICQOAHI1569-10-85 11:32:00 Test Item Value Reference Range Interpretation Comments Segs-Bands # (test code = Segs-Bands #) 2.6 1.5-8.1 [facility] HospitalVsrythrCEQYZXAWYX5074-84-81 11:32:00 Test Item Value Reference Range Interpretation Comments Basophils (test code = 0.7 See_Comment [Aut omated message] The Basophils) system which ge nerated this result tra nsmitted reference range : <=1.0. The reference r leo was not used to int erpret this result as normal/abnormal . [facility] HospitalFcimtkoJTGKHPBEVT5866-40-17 11:32:00 Test Item Value Reference Range Interpretation Comments Monocytes # (test code 0.7 See_Comment [Aut omated message] The = Monocytes #) system which generated this result tra nsmitted reference range : <=0.8. The reference r leo was not used to int erpret this result as normal/abnormal . [facility] HospitalCcmdoyxKNIIVZUGNK6836-10-85 11:32:00 Test Item Value Reference Range Interpretation Comments Lymphocytes # (test code = Lymphocytes 1.6 1.0-5.5 #) [facility] HospitalHbefrgyTKHMYPDEXX7761-47-55 11:32:00 Test Item Value Reference Range Interpretation Comments Eosinophils # (test code 0.2 See_Comment [A utomated message] The = Eosinophils #) system [facility] generated this result tra nsmitted reference range : <=0.5. The reference r leo was not used to int erpret this result as normal/abnormal . [facility] HospitalYvbiqoeUNGYYKEWNF9683-31-16 11:32:00 Test Item Value Reference Range Interpretation Comments Segs (test code = Segs) 50.7 45.0-75.0 [facility] HospitalJulzmxgHSVFSOUHTD8386-08-85 11:32:00 Test Item Value Reference Range Interpretation [...] iron deficiency anemia, and renal disease. CPT: 35840 [facility] HospitalQkucjalOQLHJSXFRB7637-51-68 11:32:00 Test Item Value Reference Range Interpretation Comments Hct (test code = Hct) 28.1 36.0-48.0 [facility] HospitalHmiguvgEWSXHOOEEE1530-38-36 11:32:00 Test Item Value Reference Range Interpretation Comments RBC (test code = RBC) 3.39 4.20-5.40 [facility] HospitalNjpzmyuCFOQHYPVON9469-63-91 11:32:00 Test Item Value Reference Range Interpretation Comments Hgb (test code = Hgb) 8.9 12.0-16.0 [facility] HospitalYtvdvawEBBXGYVTZW7530-88-88 11:32:00 Test Item Value Reference Range Interpretation Comments WBC (test code = WBC) 5.1 3.7-10.4 [facility] HospitalOujtqogRIFNOBCONM9958-64-62 11:32:00 Test Item Value Reference Range Interpretation Comments MPV (test code = MPV) 11.3 7.4-10.4 [facility] HospitalTesnkrbLBQVNRCVOV7632-03-98 11:32:00 Test Item Value Reference Range Interpretation Comments Platelet (test code = Platelet) 118 133-450 [facility] HospitalSiimvtmBWZXJGBFKS6318-31-72 11:32:00 Test Item Value Reference Range Interpretation Comments MCHC (test code = MCHC) 31.8 32.0-36.0 [facility] HospitalShbwlqhBXUXLYXRAX2648-25-92 11:32:00 Test Item Value Reference Range Interpretation Comments RDW (test code = RDW) 18.0 11.5-14.5 [facility] HospitalYzvtdxwZBZIVDUDRX0255-89-18 11:32:00 Test Item Value Reference Range Interpretation Comments MCV (test code = MCV) 83.0 80.0-98.0 [facility] HospitalDclqgbaDJNAPQOAHF4892-08-24 11:32:00 Test Item Value Reference Range Interpretation Comments MCH (test code = MCH) 26.4 pg 27.0-31.0 [facility]SdfrfbcPFAGLBUQAU0559-13-47 11:32:00 Test Item Value Reference Range Interpretation Comments C3 Complement (test code = C3 137 88-201 Complement) [facility] HospitalKvvwgjkEYGYRRYJPW8307-13-66 11:32:00 Test Item Value Reference Range Interpretation Comments HIV. (test code = Negative *NA*(07/30/16 HIV.) 5:32 AM) [facility] HospitalLylvpbeTNZBJEUZIP7867-28-59 11:05:00 Test Item Value Reference Range Interpretation [...] iron deficiency anemia, and renal disease. CPT: 83068 [facility]NcmvvwuLRUMNSGESP7648-11-71 11:05:00 Test Item Value Reference Range Interpretation Comments HIV. (test code = Negative *NA*(07/29/16 HIV.) 5:05 AM) [facility] HospitalHhgbpvlGYPMZGLKWD6100-02-08 11:05:00 Test Item Value Reference Range Interpretation Comments C3 Complement (test code = C3 92 88-201 Complement) [facility] HospitalPcbpdpfPEOIWAKRVO2992-88-95 11:05:00 Test Item Value Reference Range Interpretation [...] iron deficiency anemia, and renal disease. CPT: 00232 [facility] HospitalTgcnnmrCONSVFLMUY5077-95-37 11:05:00 Test Item Value Reference Range Interpretation Comments HIV. (test code = Negative *NA*(07/29/16 HIV.) 5:05 AM) [facility] HospitalUncecjjDTGAIIRBLC6029-97-49 11:05:00 Test Item Value Reference Range Interpretation Comments C3 Complement (test code = C3 92 88-201 Complement) [facility]2017-02-07 15:50:00 Test Item Value Reference Range Interpretation Comments eGFR (test code = eGFR) 25 [facility]2017-02-07 15:50:00 Test Item Value Reference Range Interpretation Comments BUN (test code = BUN) 55 7-22 [facility]2017-02-07 15:50:00 Test Item Value Reference Range Interpretation Comments CO2 (test code = CO2) 23 24-32 [facility]2017-02-07 15:50:00 Test Item Value Reference Range Interpretation Comments Chloride Lvl (test code = Chloride Lvl) 109 95-109 [facility]2017-02-07 15:50:00 Test Item Value Reference Range Interpretation Comments Glucose Lvl (test code = Glucose Lvl) 101 70-99 [facility]2017-02-07 15:50:00 Test Item Value Reference Range Interpretation Comments Potassium Lvl (test code = Potassium 4.0 3.5-5.1 Lvl) [facility]2017-02-07 15:50:00 Test Item Value Reference Range Interpretation Comments Sodium Lvl (test code = Sodium Lvl) 141 135-145 [facility]2017-02-07 15:50:00 Test Item Value Reference Range Interpretation Comments AGAP (test code = AGAP) 13.0 10.0-20.0 [facility]2017-02-07 15:50:00 Test Item Value Reference Range Interpretation Comments Calcium Lvl (test code = Calcium Lvl) 7.7 8.5-10.5 [facility]2017-02-07 15:50:00 Test Item Value Reference Range Interpretation Comments Creatinine Lvl (test code = Creatinine 2.49 0.50-1.40 Lvl) [facility] HospitalJtqxfkjUNCSYPNIBY5877-53-22 15:50:00 Test Item Value Reference Range Interpretation Comments PT (test code = PT) 14.8 s 12.0-14.7 [facility] HospitalVaptdhzCPPIMXIRJZ5422-83-62 15:50:00 Test Item Value Reference Range Interpretation Comments PTT (test code = PTT) 40.8 s 22.9-35.8 [facility] HospitalQjvivsxZJPKOCHXVU5918-87-24 15:50:00 Test Item Value Reference Range Interpretation Comments INR (test code = INR) 1.14 0.85-1.17 [facility] HospitalGnjmlxmOACUSEFYSR5304-88-14 15:50:00 Test Item Value Reference Range Interpretation Comments C3 Complement (test code = C3 94 88-201 Complement) [facility]2017-02-07 15:50:00 Test Item Value Reference Range Interpretation Comments eGFR (test code = eGFR) 25 [facility]2017-02-07 15:50:00 Test Item Value Reference Range Interpretation Comments BUN (test code = BUN) 55 7-22 [facility]2017-02-07 15:50:00 Test Item Value Reference Range Interpretation Comments CO2 (test code = CO2) 23 24-32 [facility]2017-02-07 15:50:00 Test Item Value Reference Range Interpretation Comments Chloride Lvl (test code = Chloride Lvl) 109 95-109 [facility]2017-02-07 15:50:00 Test Item Value Reference Range Interpretation Comments Glucose Lvl (test code = Glucose Lvl) 101 70-99 [facility]2017-02-07 15:50:00 Test Item Value Reference Range Interpretation Comments Potassium Lvl (test code = Potassium 4.0 3.5-5.1 Lvl) [facility]2017-02-07 15:50:00 Test Item Value Reference Range Interpretation Comments Sodium Lvl (test code = Sodium Lvl) 141 135-145 [facility]2017-02-07 15:50:00 Test Item Value Reference Range Interpretation Comments AGAP (test code = AGAP) 13.0 10.0-20.0 [facility]2017-02-07 15:50:00 Test Item Value Reference Range Interpretation Comments Calcium Lvl (test code = Calcium Lvl) 7.7 8.5-10.5 [facility]2017-02-07 15:50:00 Test Item Value Reference Range Interpretation Comments Creatinine Lvl (test code = Creatinine 2.49 0.50-1.40 Lvl) [facility] HospitalEcbmfxcAKGWVEGTJS1450-89-69 15:50:00 Test Item Value Reference Range Interpretation Comments PT (test code = PT) 14.8 s 12.0-14.7 [facility] HospitalAxnwrxkFSGYPPKTRI4475-09-03 15:50:00 Test Item Value Reference Range Interpretation Comments PTT (test code = PTT) 40.8 s 22.9-35.8 [facility] HospitalPbdttklSASKFMYQPG9277-35-83 15:50:00 Test Item Value Reference Range Interpretation Comments INR (test code = INR) 1.14 0.85-1.17 [facility] HospitalMzmvnwnHOXBVMRCWY4547-90-36 15:50:00 Test Item Value Reference Range Interpretation Comments C3 Complement (test code = C3 94 88-201 Complement) [facility] HospitalBlxccyzMSWCMHWEXR1996-29-19 10:35:00 Test Item Value Reference Range Interpretation Comments Lymphocytes # (test code = Lymphocytes 1.7 1.0-5.5 #) [facility] HospitalBqndsscJUVMJAYQYW5162-55-86 10:35:00 Test Item Value Reference Range Interpretation Comments Segs-Bands # (test code = Segs-Bands #) 2.7 1.5-8.1 [facility] HospitalWovyyeiBHYVNMLHQG8342-69-78 10:35:00 Test Item Value Reference Range Interpretation Comments Eosinophils # (test code 0.1 See_Comment [A utomated message] The = Eosinophils #) system whic h generated this result tra nsmitted reference range : <=0.5. The reference r leo was not used to int erpret this result as normal/abnormal . [facility] HospitalFlnkcbzIXHHQEAPXF2052-28-45 10:35:00 Test Item Value Reference Range Interpretation Comments Monocytes # (test code 0.7 See_Comment [Aut omated message] The = Monocytes #) system which generated this result tra nsmitted reference range : <=0.8. The reference r leo was not used to int erpret this result as normal/abnormal . [facility] HospitalRvoptxuSHBLYCPQSQ4227-78-71 10:35:00 Test Item Value Reference Range Interpretation Comments Segs (test code = Segs) 51.3 45.0-75.0 [facility] HospitalArhlrzzYSADIATXOK6061-03-99 10:35:00 Test Item Value Reference Range Interpretation Comments Lymphocytes (test code = Lymphocytes) 31.6 20.0-40.0 [facility] HospitalKpujauxBVIINTWSPO7808-83-22 10:35:00 Test Item Value Reference Range Interpretation Comments Monocytes (test code = Monocytes) 14.1 2.0-12.0 [facility] HospitalOiiqjqkMGFZEWVXVV4353-61-38 10:35:00 Test Item Value Reference Range Interpretation Comments Eosinophils (test code = 2.6 See_Comment [A utomated message] The Eosinophils) system which ge nerated this result tra nsmitted reference range : <=4.0. The reference r leo was not used to int erpret this result as normal/abnormal . [facility] HospitalVgokcuqLVMMHEQQIN6183-60-64 10:35:00 Test Item Value Reference Range Interpretation Comments Basophils (test code = 0.4 See_Comment [Aut omated message] The Basophils) system which ge nerated this result tra nsmitted reference range : <=1.0. The reference r leo was not used to int erpret this result as normal/abnormal . [facility] HospitalDuclypaPVMRJSLJJR3296-42-42 10:35:00 Test Item Value Reference Range Interpretation Comments PB Smear Path Peripheral blood smear shows (test code = PB hypochromic normocytic Smear Path) anemia with anisopoikilocytsosis, no increase in schistocytes, slight polychromasia, a few estella cells, moderate thrombocytopenia. Impression: (1) no evidence of microangiopathic hemolysis, (2) RBC morphology is suggestive of anemia of chronic disease or iron deficiency anemia, and renal disease. CPT: 73795 [facility] HospitalHtimnlnTWOYQKSRSH7644-45-89 10:35:00 Test Item Value Reference Range Interpretation Comments Hct (test code = Hct) 29.3 36.0-48.0 [facility] HospitalHgdbimtHUNWITOQIX5754-35-18 10:35:00 Test Item Value Reference Range Interpretation Comments Hgb (test code = Hgb) 9.2 12.0-16.0 [facility] HospitalHprxdnqBTCPOTIYLB0553-67-60 10:35:00 Test Item Value Reference Range Interpretation Comments RBC (test code = RBC) 3.54 4.20-5.40 [facility] HospitalKzizelmFAHLNAXHOV5901-33-88 10:35:00 Test Item Value Reference Range Interpretation Comments WBC (test code = WBC) 5.3 3.7-10.4 [facility] HospitalOaufwniIQWDGTDGWM9445-49-41 10:35:00 Test Item Value Reference Range Interpretation Comments Platelet (test code = Platelet) 87 133-450 [facility] HospitalFrdvldnWYBVXAIZIP9181-31-56 10:35:00 Test Item Value Reference Range Interpretation Comments MCHC (test code = MCHC) 31.4 32.0-36.0 [facility] HospitalQcajuitHGLLFURUOF3651-77-82 10:35:00 Test Item Value Reference Range Interpretation Comments RDW (test code = RDW) 17.9 11.5-14.5 [facility] HospitalBdmlfzrUSBPRYMAEQ3145-97-18 10:35:00 Test Item Value Reference Range Interpretation Comments MPV (test code = MPV) 10.9 7.4-10.4 [facility] HospitalGfizhbmXSGOWIKGGA3365-65-38 10:35:00 Test Item Value Reference Range Interpretation Comments MCH (test code = MCH) 26.0 pg 27.0-31.0 [facility] HospitalVcdnsugYWQHWBUQUL0140-30-15 10:35:00 Test Item Value Reference Range Interpretation Comments MCV (test code = MCV) 82.8 80.0-98.0 [facility] HospitalWonxyujHMIXKNEONB3136-68-67 10:35:00 Test Item Value Reference Range Interpretation Comments HIV. (test code = Negative *NA*(07/28/16 HIV.) 4:35 AM) [facility] HospitalIjmfdfnUYGZCSPOUI2840-95-32 10:35:00 Test Item Value Reference Range Interpretation Comments Lymphocytes # (test code = Lymphocytes 1.7 1.0-5.5 #) [facility] HospitalIdbvimsRMUGSKHWNR6600-89-03 10:35:00 Test Item Value Reference Range Interpretation Comments Segs-Bands # (test code = Segs-Bands #) 2.7 1.5-8.1 [facility] HospitalSkvxwxbSWNRVOGTRG1160-14-55 10:35:00 Test Item Value Reference Range Interpretation Comments Eosinophils # (test code 0.1 See_Comment [A utomated message] The = Eosinophils #) system whic h generated this result tra nsmitted reference range : <=0.5. The reference r leo was not used to int erpret this result as normal/abnormal . [facility] HospitalVwrmhcrRBFKKXBLOP5507-30-49 10:35:00 Test Item Value Reference Range Interpretation Comments Monocytes # (test code 0.7 See_Comment [Aut omated message] The = Monocytes #) system which generated this result tra nsmitted reference range : <=0.8. The reference r leo was not used to int erpret this result as normal/abnormal . [facility] HospitalHjiuymtQEUFXKSYUE6074-50-95 10:35:00 Test Item Value Reference Range Interpretation Comments Segs (test code = Segs) 51.3 45.0-75.0 [facility] HospitalTbnbupeLCKJBXUOIM4864-89-84 10:35:00 Test Item Value Reference Range Interpretation Comments Lymphocytes (test code = Lymphocytes) 31.6 20.0-40.0 [facility] HospitalTvfmsssUQFCLMBKZE1701-09-18 10:35:00 Test Item Value Reference Range Interpretation Comments Monocytes (test code = Monocytes) 14.1 2.0-12.0 [facility] HospitalQlspexgHULIKOVXAP5126-85-08 10:35:00 Test Item Value Reference Range Interpretation Comments Eosinophils (test code = 2.6 See_Comment [A utomated message] The Eosinophils) system which ge nerated this result tra nsmitted reference range : <=4.0. The reference r leo was not used to int erpret this result as normal/abnormal . [facility] HospitalIpmewzfXYWECMFLWZ6588-72-72 10:35:00 Test Item Value Reference Range Interpretation Comments Basophils (test code = 0.4 See_Comment [Aut omated message] The Basophils) system which ge nerated this result tra nsmitted reference range : <=1.0. The reference r leo was not used to int erpret this result as normal/abnormal . [facility] HospitalGicgmioXYCSPPXFRZ3104-94-28 10:35:00 Test Item Value Reference Range Interpretation Comments PB Smear Path Peripheral blood smear shows (test code = PB hypochromic normocytic Smear Path) anemia with anisopoikilocytsosis, no increase in schistocytes, slight polychromasia, a few estella cells, moderate thrombocytopenia. Impression: (1) no evidence of microangiopathic hemolysis, (2) RBC morphology is suggestive of anemia of chronic disease or iron deficiency anemia, and renal disease. CPT: 68017 [facility] HospitalPeqhdowBBFZFXKIYA1500-56-28 10:35:00 Test Item Value Reference Range Interpretation Comments Hct (test code = Hct) 29.3 36.0-48.0 [facility] HospitalViyxrhyKEWKQYUZTQ0481-65-46 10:35:00 Test Item Value Reference Range Interpretation Comments Hgb (test code = Hgb) 9.2 12.0-16.0 [facility] HospitalHjcxtvmYFGWVQTADH5521-26-84 10:35:00 Test Item Value Reference Range Interpretation Comments RBC (test code = RBC) 3.54 4.20-5.40 [facility] HospitalOpeupkyCVPIKKCREW3655-45-42 10:35:00 Test Item Value Reference Range Interpretation Comments WBC (test code = WBC) 5.3 3.7-10.4 [facility]vnutpnLEEDEHNKER9732-54-11 10:35:00 Test Item Value Reference Range Interpretation Comments Platelet (test code = Platelet) 87 133-450 [facility] HospitalAfxzftjBMDOGTXPPS8524-54-27 10:35:00 Test Item Value Reference Range Interpretation Comments MCHC (test code = MCHC) 31.4 32.0-36.0 [facility] HospitalAypyndoIEUGXLKQXT1782-60-46 10:35:00 Test Item Value Reference Range Interpretation Comments RDW (test code = RDW) 17.9 11.5-14.5 [facility] HospitalXsmueehWFVKHIQOVE4302-41-75 10:35:00 Test Item Value Reference Range Interpretation Comments MPV (test code = MPV) 10.9 7.4-10.4 [facility] HospitalHqrayleWHWARESDTO4861-77-41 10:35:00 Test Item Value Reference Range Interpretation Comments MCH (test code = MCH) 26.0 pg 27.0-31.0 [facility] HospitalCasbhtyYCHBRQCSJT4635-45-19 10:35:00 Test Item Value Reference Range Interpretation Comments MCV (test code = MCV) 82.8 80.0-98.0 [facility] HospitalFalvvyeXQAWOFGQWL0506-82-21 10:35:00 Test Item Value Reference Range Interpretation Comments HIV. (test code = Negative *NA*(07/28/16 HIV.) 4:35 AM) [facility] [id number] 10:22:00 Test Item Value Reference Range Interpretation Comments Total CK (test code = Total CK) 190 12-191 [facility] HospitalCHEM [id number] 10:22:00 Test Item Value Reference Range Interpretation Comments Calcium Lvl (test code = Calcium Lvl) 7.8 8.5-10.5 [facility] [id number] 10:22:00 Test Item Value Reference Range Interpretation Comments CO2 (test code = CO2) 21 24-32 [facility] [id number] 10:22:00 Test Item Value Reference Range Interpretation Comments Sodium Lvl (test code = Sodium Lvl) 140 135-145 [facility] [id number] 10:22:00 Test Item Value Reference Range Interpretation Comments Potassium Lvl (test code = Potassium 3.8 3.5-5.1 Lvl) [facility]2017-02-06 10:22:00 Test Item Value Reference Range Interpretation Comments Chloride Lvl (test code = Chloride Lvl) 106 95-109 [facility]2017-02-06 10:22:00 Test Item Value Reference Range Interpretation Comments Bili Total (test code = Bili Total) 0.4 0.2-1.3 [facility]2017-02-06 10:22:00 Test Item Value Reference Range Interpretation Comments Alk Phos (test code = Alk Phos) 74 39-136 [facility]2017-02-06 10:22:00 Test Item Value Reference Range Interpretation Comments eGFR (test code = eGFR) 19 [facility]2017-02-06 10:22:00 Test Item Value Reference Range Interpretation Comments Total Protein (test code = Total 5.2 6.4-8.4 Protein) [facility]2017-02-06 10:22:00 Test Item Value Reference Range Interpretation Comments ALT (test code = ALT) 822 See_Comment [Auto mated message] The system which ge nerated this result transmit rohit reference range : <=65. The reference range was not used to interpr et this result as reji l/abnormal. [facility]2017-02-06 10:22:00 Test Item Value Reference Range Interpretation Comments AST (test code = AST) 205 See_Comment [Auto mated message] The system which ge nerated this result transmit rohit reference range : <=37. The reference range was not used to interpr et this result as reji l/abnormal. [facility]2017-02-06 10:22:00 Test Item Value Reference Range Interpretation Comments Albumin Lvl (test code = Albumin Lvl) 1.8 3.5-5.0 [facility]2017-02-06 10:22:00 Test Item Value Reference Range Interpretation Comments BUN (test code = BUN) 54 7-22 [facility]2017-02-06 10:22:00 Test Item Value Reference Range Interpretation Comments Glucose Lvl (test code = Glucose Lvl) 143 70-99 [facility]2017-02-06 10:22:00 Test Item Value Reference Range Interpretation Comments Creatinine Lvl (test code = Creatinine 3.11 0.50-1.40 Lvl) [facility]2017-02-06 10:22:00 Test Item Value Reference Range Interpretation Comments B/C Ratio (test code = B/C Ratio) 17 6-25 [facility]2017-02-06 10:22:00 Test Item Value Reference Range Interpretation Comments AGAP (test code = AGAP) 16.8 10.0-20.0 [facility]2017-02-06 10:22:00 Test Item Value Reference Range Interpretation Comments Globulin (test code = Globulin) 3.4 2.7-4.2 [facility]2017-02-06 10:22:00 Test Item Value Reference Range Interpretation Comments A/G Ratio (test code = A/G Ratio) 0.5 0.7-1.6 [facility]2017-02-06 10:22:00 Test Item Value Reference Range Interpretation Comments Magnesium Lvl (test code = Magnesium 2.0 1.8-2.4 Lvl) [facility]2017-02-06 10:22:00 Test Item Value Reference Range Interpretation Comments Phosphorus (test code = Phosphorus) 3.7 2.5-4.5 [facility] HospitalKavbxtgRHVOVYJIRN9853-58-16 10:22:00 Test Item Value Reference Range Interpretation Comments RDW (test code = RDW) 17.7 11.5-14.5 [facility] HospitalDajhugaFJUTAUHKKQ3470-75-10 10:22:00 Test Item Value Reference Range Interpretation Comments MCHC (test code = MCHC) 32.9 32.0-36.0 [facility] HospitalJirmetuITVKCVRRPO9879-89-99 10:22:00 Test Item Value Reference Range Interpretation Comments Hct (test code = Hct) 25.4 36.0-48.0 [facility] HospitalEztbxybTYMAGDRKBR8381-07-49 10:22:00 Test Item Value Reference Range Interpretation Comments MCH (test code = MCH) 26.4 pg 27.0-31.0 [facility] HospitalZotoepgBOVPIJUWWK2304-01-56 10:22:00 Test Item Value Reference Range Interpretation Comments MCV (test code = MCV) 80.3 80.0-98.0 [facility] HospitalOpjyzppZNXVDEPKHE2302-83-54 10:22:00 Test Item Value Reference Range Interpretation Comments MPV (test code = MPV) 11.4 7.4-10.4 [facility] HospitalYtlhwcrOLHESXUCYZ2720-49-47 10:22:00 Test Item Value Reference Range Interpretation Comments Platelet (test code = Platelet) 74 133-450 [facility] HospitalNboutpcGIJTCATTPS1119-75-75 10:22:00 Test Item Value Reference Range Interpretation Comments RBC (test code = RBC) 3.16 4.20-5.40 [facility] HospitalGvhpmmoVLLUUOYRYP3998-76-70 10:22:00 Test Item Value Reference Range Interpretation Comments WBC (test code = WBC) 5.3 3.7-10.4 [facility] HospitalQriulliFSZZHGRDVK9879-23-10 10:22:00 Test Item Value Reference Range Interpretation Comments Hgb (test code = Hgb) 8.4 12.0-16.0 [facility] HospitalTvushwfDFFYFWVRHM3937-87-23 10:22:00 Test Item Value Reference Range Interpretation Comments Monocytes (test code = Monocytes) 14.5 2.0-12.0 [facility] HospitalOhxmpdaXHGQWOAFNH0831-88-61 10:22:00 Test Item Value Reference Range Interpretation Comments Lymphocytes (test code = Lymphocytes) 29.8 20.0-40.0 [facility] HospitalPluxqdoKZIWJITLFU2694-77-73 10:22:00 Test Item Value Reference Range Interpretation Comments Eosinophils # (test code 0.1 See_Comment [A utomated message] The = Eosinophils #) system whic h generated this result tra nsmitted reference range : <=0.5. The reference r leo was not used to int erpret this result as normal/abnormal . [facility] HospitalQkioiziQIAJGUKMOC1910-29-48 10:22:00 Test Item Value Reference Range Interpretation Comments Monocytes # (test code 0.8 See_Comment [Aut omated message] The = Monocytes #) system which generated this result tra nsmitted reference range : <=0.8. The reference r leo was not used to int erpret this result as normal/abnormal . [facility] HospitalBjdoyqzFGZFEYVQDF8863-01-51 10:22:00 Test Item Value Reference Range Interpretation Comments Segs-Bands # (test code = Segs-Bands #) 2.9 1.5-8.1 [facility] HospitalBwavfjbXISZGJTSHI0081-43-36 10:22:00 Test Item Value Reference Range Interpretation Comments Lymphocytes # (test code = Lymphocytes 1.6 1.0-5.5 #) [facility] HospitalOfccjqcAIYITKDADG7168-97-62 10:22:00 Test Item Value Reference Range Interpretation Comments Basophils (test code = 0.4 See_Comment [Aut omated message] The Basophils) system which ge nerated this result tra nsmitted reference range : <=1.0. The reference r leo was not used to int erpret this result as normal/abnormal . [facility] HospitalXseobxuVXTXIYQYLE8359-94-92 10:22:00 Test Item Value Reference Range Interpretation Comments Eosinophils (test code = 1.2 See_Comment [A utomated message] The Eosinophils) system which ge nerated this result tra nsmitted reference range : <=4.0. The reference r leo was not used to int erpret this result as normal/abnormal . [facility] HospitalCrzugetEXTMMHGYKV0248-02-80 10:22:00 Test Item Value Reference Range Interpretation Comments Segs (test code = Segs) 54.1 45.0-75.0 [facility]SPECIAL ZNROCGDIQ9687-95-46 10:22:00 Test Item Value Reference Range Interpretation Comments Hgb A1C (test code = Hgb A1C) 8.9 [facility] HospitalCARDIAC SGATNBG6601-63-08 10:22:00 Test Item Value Reference Range Interpretation Comments Total CK (test code = Total CK) 190 12-191 [facility] [id number] 10:22:00 Test Item Value Reference Range Interpretation Comments Calcium Lvl (test code = Calcium Lvl) 7.8 8.5-10.5 [facility] [id number] 10:22:00 Test Item Value Reference Range Interpretation Comments CO2 (test code = CO2) 21 24-32 [facility] [id number] 10:22:00 Test Item Value Reference Range Interpretation Comments Sodium Lvl (test code = Sodium Lvl) 140 135-145 [facility] [id number] 10:22:00 Test Item Value Reference Range Interpretation Comments Potassium Lvl (test code = Potassium 3.8 3.5-5.1 Lvl) [facility] [id number] 10:22:00 Test Item Value Reference Range Interpretation Comments Chloride Lvl (test code = Chloride Lvl) 106 95-109 [facility]2017-02-06 10:22:00 Test Item Value Reference Range Interpretation Comments Bili Total (test code = Bili Total) 0.4 0.2-1.3 [facility]2017-02-06 10:22:00 Test Item Value Reference Range Interpretation Comments Alk Phos (test code = Alk Phos) 74 39-136 [facility]2017-02-06 10:22:00 Test Item Value Reference Range Interpretation Comments eGFR (test code = eGFR) 19 [facility]2017-02-06 10:22:00 Test Item Value Reference Range Interpretation Comments Total Protein (test code = Total 5.2 6.4-8.4 Protein) [facility]2017-02-06 10:22:00 Test Item Value Reference Range Interpretation Comments ALT (test code = ALT) 822 See_Comment [Auto mated message] The system which ge nerated this result transmit rohit reference range : <=65. The reference range was not used to interpr et this result as reji l/abnormal. [facility]2017-02-06 10:22:00 Test Item Value Reference Range Interpretation Comments AST (test code = AST) 205 See_Comment [Auto mated message] The system which ge nerated this result transmit rohit reference range : <=37. The reference range was not used to interpr et this result as reji l/abnormal. [facility]2017-02-06 10:22:00 Test Item Value Reference Range Interpretation Comments Albumin Lvl (test code = Albumin Lvl) 1.8 3.5-5.0 [facility]2017-02-06 10:22:00 Test Item Value Reference Range Interpretation Comments BUN (test code = BUN) 54 7-22 [facility]2017-02-06 10:22:00 Test Item Value Reference Range Interpretation Comments Glucose Lvl (test code = Glucose Lvl) 143 70-99 [facility]2017-02-06 10:22:00 Test Item Value Reference Range Interpretation Comments Creatinine Lvl (test code = Creatinine 3.11 0.50-1.40 Lvl) [facility]2017-02-06 10:22:00 Test Item Value Reference Range Interpretation Comments B/C Ratio (test code = B/C Ratio) 17 6-25 [facility]2017-02-06 10:22:00 Test Item Value Reference Range Interpretation Comments AGAP (test code = AGAP) 16.8 10.0-20.0 [facility]2017-02-06 10:22:00 Test Item Value Reference Range Interpretation Comments Globulin (test code = Globulin) 3.4 2.7-4.2 [facility]2017-02-06 10:22:00 Test Item Value Reference Range Interpretation Comments A/G Ratio (test code = A/G Ratio) 0.5 0.7-1.6 [facility]2017-02-06 10:22:00 Test Item Value Reference Range Interpretation Comments Magnesium Lvl (test code = Magnesium 2.0 1.8-2.4 Lvl) [facility]2017-02-06 10:22:00 Test Item Value Reference Range Interpretation Comments Phosphorus (test code = Phosphorus) 3.7 2.5-4.5 [facility] HospitalMzhjdnsULYJFQRDUE4510-82-48 10:22:00 Test Item Value Reference Range Interpretation Comments RDW (test code = RDW) 17.7 11.5-14.5 [facility] HospitalEkrobmlFYGGAPYXYW4736-34-37 10:22:00 Test Item Value Reference Range Interpretation Comments MCHC (test code = MCHC) 32.9 32.0-36.0 [facility] HospitalXvoyfgjJFWRSUNDXP5784-39-61 10:22:00 Test Item Value Reference Range Interpretation Comments Hct (test code = Hct) 25.4 36.0-48.0 [facility] HospitalQegrkkoOKRDHYBAQB2513-23-86 10:22:00 Test Item Value Reference Range Interpretation Comments MCH (test code = MCH) 26.4 pg 27.0-31.0 [facility] HospitalEslkjwfJWQMNRXDDX8500-53-84 10:22:00 Test Item Value Reference Range Interpretation Comments MCV (test code = MCV) 80.3 80.0-98.0 [facility] HospitalYuldqsrAKMORKBJIP3166-98-38 10:22:00 Test Item Value Reference Range Interpretation Comments MPV (test code = MPV) 11.4 7.4-10.4 [facility] HospitalPwiuceeZWWLJZWCBF4053-93-43 10:22:00 Test Item Value Reference Range Interpretation Comments Platelet (test code = Platelet) 74 133-450 [facility] HospitalMyawzjbWZAOOQSONK2281-72-78 10:22:00 Test Item Value Reference Range Interpretation Comments RBC (test code = RBC) 3.16 4.20-5.40 [facility] HospitalAjdlegdGWZHYEBGKI6822-44-54 10:22:00 Test Item Value Reference Range Interpretation Comments WBC (test code = WBC) 5.3 3.7-10.4 [facility] HospitalDllifanEBWYXHBHEO2654-01-31 10:22:00 Test Item Value Reference Range Interpretation Comments Hgb (test code = Hgb) 8.4 12.0-16.0 [facility] HospitalTohnergNVIMEABDXH1812-89-69 10:22:00 Test Item Value Reference Range Interpretation Comments Monocytes (test code = Monocytes) 14.5 2.0-12.0 [facility] HospitalArpnkjjDRFCCENAML4534-22-57 10:22:00 Test Item Value Reference Range Interpretation Comments Lymphocytes (test code = Lymphocytes) 29.8 20.0-40.0 [facility] HospitalZpvedqgCXFJDLDZJG6051-33-87 10:22:00 Test Item Value Reference Range Interpretation Comments Eosinophils # (test code 0.1 See_Comment [A utomated message] The = Eosinophils #) system whic h generated this result tra nsmitted reference range : <=0.5. The reference r leo was not used to int erpret this result as normal/abnormal . [facility] HospitalXkehxpvWIWHBPGESK7202-02-95 10:22:00 Test Item Value Reference Range Interpretation Comments Monocytes # (test code 0.8 See_Comment [Aut omated message] The = Monocytes #) system which generated this result tra nsmitted reference range : <=0.8. The reference r leo was not used to int erpret this result as normal/abnormal . [facility] HospitalZluplihKZQQHLBLNH2120-85-76 10:22:00 Test Item Value Reference Range Interpretation Comments Segs-Bands # (test code = Segs-Bands #) 2.9 1.5-8.1 [facility] HospitalJhstgacTTEWSMLEJX4961-86-21 10:22:00 Test Item Value Reference Range Interpretation Comments Lymphocytes # (test code = Lymphocytes 1.6 1.0-5.5 #) [facility] HospitalHmzyjbmAMUDUYDSCF9006-82-51 10:22:00 Test Item Value Reference Range Interpretation Comments Basophils (test code = 0.4 See_Comment [Aut omated message] The Basophils) system which ge nerated this result tra nsmitted reference range : <=1.0. The reference r leo was not used to int erpret this result as normal/abnormal . [facility] HospitalXsfdityGQRVEOJGXR4159-95-54 10:22:00 Test Item Value Reference Range Interpretation Comments Eosinophils (test code = 1.2 See_Comment [A utomated message] The Eosinophils) system which ge nerated this result tra nsmitted reference range : <=4.0. The reference r leo was not used to int erpret this result as normal/abnormal . [facility] HospitalWlomxjfAEQAKNBRIP1368-96-34 10:22:00 Test Item Value Reference Range Interpretation Comments Segs (test code = Segs) 54.1 45.0-75.0 [facility]SPECIAL MIFAPRPRK1379-62-91 10:22:00 Test Item Value Reference Range Interpretation Comments Hgb A1C (test code = Hgb A1C) 8.9 [facility] HospitalCARDIAC FVPXJSJ1394-89-08 17:40:00 Test Item Value Reference Range Interpretation Comments Total CK (test code = Total CK) 344 12-191 [facility]ressAkzwqefFUQQGNMXGX9630-97-58 17:40:00 Test Item Value Reference Range Interpretation Comments IVETTE (test code = IVETTE) Positive *ABN*(07/26/16 11:40 AM) [facility] CypressKvvtwnrOLWGQGSXSA1778-50-50 17:40:00 Test Item Value Reference Range Interpretation Comments COOK'S ASSISTANT Ab (test code = COOK'S ASSISTANT Ab) no [facility]xttmzhJDNYLGBLZQ6414[facility]15 17:40:00 Test Item Value Reference Range Interpretation Comments Sm Ab (test code = Sm Ab) no [facility]MzjifpmKGVNJCGFKS6201-31-69 17:40:00 Test Item Value Reference Range Interpretation Comments IVETTE Interp (test code Pattern appears = IVETTE Interp) Nucleolar. [facility]ressUmvaiuoZDKQUKVEGK4705-83-11 17:40:00 Test Item Value Reference Range Interpretation Comments SS-B (La) Ab (test code = SS-B (La) Ab) no [facility] HospitalCnofqrcGKCQGWYBMI8117-24-21 17:40:00 Test Item Value Reference Range Interpretation Comments SS-A (Ro) Ab (test code = SS-A (Ro) Ab) no [facility]ZsubhteGJFBBFQZCJ1167-07-70 17:40:00 Test Item Value Reference Range Interpretation Comments DNA Ab (DS) (test Negative (07/26/16 11:40 code = DNA Ab (DS)) AM) [facility] CypressSuopuvaLBTHXXQEHI8510-13-23 17:40:00 Test Item Value Reference Range Interpretation Comments IVETTE Titer (test code = 1:40 *ABN*(07/26/16 IVETTE Titer) 11:40 AM) [facility] [id number] 17:40:00 Test Item Value Reference Range Interpretation Comments U Sodium (test code = U Sodium) 21 [facility] CypressannCARDIAC CNNRUIM9466-98-89 17:40:00 Test Item Value Reference Range Interpretation Comments Total CK (test code = Total CK) 344 12-191 [facility] CypressKfalkcpXKYOMOXXED1619-93-13 17:40:00 Test Item Value Reference Range Interpretation Comments IVETTE (test code = IVETTE) Positive *ABN*(07/26/16 11:40 AM) [facility] CypressRgiicrnMHEOZXSXIU8728-08-67 17:40:00 Test Item Value Reference Range Interpretation Comments COOK'S ASSISTANT Ab (test code = COOK'S ASSISTANT Ab) no gt [facility] CypressZhsjvlbKQJAYNRVHO6663-24-47 17:40:00 Test Item Value Reference Range Interpretation Comments Sm Ab (test code = Sm Ab) no gt [facility] CypressEfywirwNDFPSGHYQC6530-94-40 17:40:00 Test Item Value Reference Range Interpretation Comments IVETTE Interp (test code Pattern appears = IVETTE Interp) Nucleolar. [facility] CypressHuqwnjtFKQZXHFMAU0558-08-70 17:40:00 Test Item Value Reference Range Interpretation Comments SS-B (La) Ab (test code = SS-B (La) Ab) no gt [facility] CypressIhpcsvsCFELDHEAPV7051-97-36 17:40:00 Test Item Value Reference Range Interpretation Comments SS-A (Ro) Ab (test code = SS-A (Ro) Ab) no gt [facility] CypressRozyvsuWRCZZCKENY2218-13-49 17:40:00 Test Item Value Reference Range Interpretation Comments DNA Ab (DS) (test Negative (07/26/16 11:40 code = DNA Ab (DS)) AM) [facility] CypressEtllmdyWEXNHRLPSV8408-50-26 17:40:00 Test Item Value Reference Range Interpretation Comments IVETTE Titer (test code = 1:40 *ABN*(07/26/16 IVETTE Titer) 11:40 AM) [facility] [id number] 17:40:00 Test Item Value Reference Range Interpretation Comments U Sodium (test code = U Sodium) 21 [facility] HospitalZesbvugGEFLKCZXOG1245-12-43 14:00:00 Test Item Value Reference Range Interpretation Comments INR (test code = INR) 1.11 0.85-1.17 [facility] HospitalGujicmdDZYZXJKFVW7590-29-64 14:00:00 Test Item Value Reference Range Interpretation Comments PT (test code = PT) 14.5 s 12.0-14.7 [facility]OWNMHPMCNT9735-82-89 14:00:00 Test Item Value Reference Range Interpretation Comments Hep A IgM (test code Negative *NA*(07/26/16 = Hep A IgM) 8:00 AM) [facility]MenmhigANMSBSVTXS8118-95-28 14:00:00 Test Item Value Reference Range Interpretation Comments Hep B Core IgM (test Negative *NA*(07/26/16 code = Hep B Core 8:00 AM) IgM) [facility] HospitalWdyannsXHZAYFBQCQ8361-74-74 14:00:00 Test Item Value Reference Range Interpretation Comments Hep C Ab (test code = Negative *NA*(07/26/16 Hep C Ab) 8:00 AM) [facility] HospitalVrmososNJISWCGEKH7271-15-73 14:00:00 Test Item Value Reference Range Interpretation Comments Hep Bs Ag (test code Negative *NA*(07/26/16 = Hep Bs Ag) 8:00 AM) [facility] HospitalGsdsbmcYIJFYIVEGL2202-25-63 14:00:00 Test Item Value Reference Range Interpretation Comments INR (test code = INR) 1.11 0.85-1.17 [facility] HospitalWccrmsgQGGHVWIQJY7755-88-25 14:00:00 Test Item Value Reference Range Interpretation Comments PT (test code = PT) 14.5 s 12.0-14.7 [facility] [id number] 14:00:00 Test Item Value Reference Range Interpretation Comments Hep A IgM (test code Negative *NA*(07/26/16 = Hep A IgM) 8:00 AM) [id number] 14:00:00 Test Item Value Reference Range Interpretation Comments Hep B Core IgM (test Negative *NA*(07/26/16 code = Hep B Core 8:00 AM) IgM) [facility]ByylrecCAZHLQRWRL1774-88-37 14:00:00 Test Item Value Reference Range Interpretation Comments Hep C Ab (test code = Negative *NA*(07/26/16 Hep C Ab) 8:00 AM) [facility]VCKW0034-[facility] 14:00:00 Test Item Value Reference Range Interpretation Comments Hep Bs Ag (test code Negative *NA*(07/26/16 = Hep Bs Ag) 8:00 AM) [facility]2017-02-05 10:42:00 Test Item Value Reference Range Interpretation Comments B/C Ratio (test code = B/C Ratio) 17 6-25 [facility]2017-02-05 10:42:00 Test Item Value Reference Range Interpretation Comments ALT (test code = ALT) 1232 See_Comment [Auto mated message] The system which ge nerated this result transmit rohit reference range : <=65. The reference range was not used to interpr et this result as reji l/abnormal. [facility]2017-02-05 10:42:00 Test Item Value Reference Range Interpretation Comments A/G Ratio (test code = A/G Ratio) 0.5 0.7-1.6 [facility]2017-02-05 10:42:00 Test Item Value Reference Range Interpretation Comments Bili Total (test code = Bili Total) 0.3 0.2-1.3 [facility]2017-02-05 10:42:00 Test Item Value Reference Range Interpretation Comments Alk Phos (test code = Alk Phos) 79 39-136 [facility]2017-02-05 10:42:00 Test Item Value Reference Range Interpretation Comments AST (test code = AST) 586 See_Comment [Auto mated message] The system which ge nerated this result transmit rohit reference range : <=37. The reference range was not used to interpr et this result as reji l/abnormal. [facility]2017-02-05 10:42:00 Test Item Value Reference Range Interpretation Comments Total Protein (test code = Total 5.5 6.4-8.4 Protein) [facility]2017-02-05 10:42:00 Test Item Value Reference Range Interpretation Comments Globulin (test code = Globulin) 3.7 2.7-4.2 [facility]2017-02-05 10:42:00 Test Item Value Reference Range Interpretation Comments Albumin Lvl (test code = Albumin Lvl) 1.8 3.5-5.0 [facility]2017-02-05 10:42:00 Test Item Value Reference Range Interpretation Comments Magnesium Lvl (test code = Magnesium 2.1 1.8-2.4 Lvl) [facility]Efl[facility]prQQUSSYVAUO4794-76-06 10:42:00 Test Item Value Reference Range Interpretation Comments Acanthocyte (test code = Acanthocyte) Slight [facility] HospitalLapnxkmSJPLPLOLCG5926-27-97 10:42:00 Test Item Value Reference Range Interpretation Comments Rouleaux (test code = Present *ABN*(07/26/16 Rouleaux) 4:42 AM) [facility] HospitalJrfauecRCLPNJMIKU0971-33-53 10:42:00 Test Item Value Reference Range Interpretation Comments Anisocyte (test code = 1+ *ABN*(07/26/16 4:42 Anisocyte) AM) [facility] HospitalFchxkasHYQONCWCTG4924-05-59 10:42:00 Test Item Value Reference Range Interpretation Comments Basophils # (test code 0.1 See_Comment [Aut omated message] The = Basophils #) system which generated this result tra nsmitted reference range : <=0.2. The reference r leo was not used to int erpret this result as normal/abnormal . [facility] HospitalJljbxioXNJJONJJJH8573-83-67 10:42:00 Test Item Value Reference Range Interpretation Comments Large Plt (test code Moderate *ABN*(07/26/16 = Large Plt) 4:42 AM) [facility] HospitalOhfdyiuJGOUSUFZTM3967-46-90 10:42:00 Test Item Value Reference Range Interpretation Comments C4 Complement (test code = C4 42 16-47 Complement) [facility]2017-02-05 10:42:00 Test Item Value Reference Range Interpretation Comments B/C Ratio (test code = B/C Ratio) 17 6-25 [facility]2017-02-05 10:42:00 Test Item Value Reference Range Interpretation Comments ALT (test code = ALT) 1232 See_Comment [Auto mated message] The system which ge nerated this result transmit rohit reference range : <=65. The reference range was not used to interpr et this result as reji l/abnormal. [facility]2017-02-05 10:42:00 Test Item Value Reference Range Interpretation Comments A/G Ratio (test code = A/G Ratio) 0.5 0.7-1.6 [facility]2017-02-05 10:42:00 Test Item Value Reference Range Interpretation Comments Bili Total (test code = Bili Total) 0.3 0.2-1.3 [facility]2017-02-05 10:42:00 Test Item Value Reference Range Interpretation Comments Alk Phos (test code = Alk Phos) 79 39-136 [facility]2017-02-05 10:42:00 Test Item Value Reference Range Interpretation Comments AST (test code = AST) 586 See_Comment [Auto mated message] The system which ge nerated this result transmit rohit reference range : <=37. The reference range was not used to interpr et this result as reji l/abnormal. [facility]2017-02-05 10:42:00 Test Item Value Reference Range Interpretation Comments Total Protein (test code = Total 5.5 6.4-8.4 Protein) [facility]2017-02-05 10:42:00 Test Item Value Reference Range Interpretation Comments Globulin (test code = Globulin) 3.7 2.7-4.2 [facility]2017-02-05 10:42:00 Test Item Value Reference Range Interpretation Comments Albumin Lvl (test code = Albumin Lvl) 1.8 3.5-5.0 [facility]2017-02-05 10:42:00 Test Item Value Reference Range Interpretation Comments Magnesium Lvl (test code = Magnesium 2.1 1.8-2.4 Lvl) [facility] H[id number] 10:42:00 Test Item Value Reference Range Interpretation Comments Acanthocyte (test code = Acanthocyte) Slight [facility] HospitalZcqvosjNWXYXBSXSF9797-33-20 10:42:00 Test Item Value Reference Range Interpretation Comments Rouleaux (test code = Present *ABN*(07/26/16 Rouleaux) 4:42 AM) [facility] HospitalQddxlswWVGKEGTGVI2135-68-35 10:42:00 Test Item Value Reference Range Interpretation Comments Anisocyte (test code = 1+ *ABN*(07/26/16 4:42 Anisocyte) AM) [facility] HospitalTpzntvzWRDEVVHZNB2826-81-05 10:42:00 Test Item Value Reference Range Interpretation Comments Basophils # (test code 0.1 See_Comment [Aut omated message] The = Basophils #) system which generated this result tra nsmitted reference range : <=0.2. The reference r leo was not used to int erpret this result as normal/abnormal . [facility] HospitalHapkhcaXLUHRVSTXN7115-91-21 10:42:00 Test Item Value Reference Range Interpretation Comments Large Plt (test code Moderate *ABN*(07/26/16 = Large Plt) 4:42 AM) [facility] HospitalRemtyduVBFOBDHTXZ2007-18-32 10:42:00 Test Item Value Reference Range Interpretation Comments C4 Complement (test code = C4 42 16-47 Complement) [facility] AND [id number] 16:34:00 Test Item Value Reference Range Interpretation Comments UA Sq Epi (test code = UA Sq Epi) None Seen [facility] AND [id number] 16:34:00 Test Item Value Reference Range Interpretation Comments UA Waxy Cast (test code = UA Waxy Cast) 1 [facility] AND [id number] 16:34:00 Test Item Value Reference Range Interpretation Comments UA Hyal Cast (test 4 See_Comment [Automat ed message] The code = UA Hyal Cast) system which generated this result transmit rohit reference range : <=2. The reference range was not used to interpr et this result as reji l/abnormal. [facility] AND [id number] 16:34:00 Test Item Value Reference Range Interpretation Comments UA Bacteria (test code = UA Occasional /HPF Bacteria) [facility] AND [id number] 16:34:00 Test Item Value Reference Range Interpretation Comments UA Mucus (test code = UA Mucus) Few /LPF [facility] AND [id number] 16:34:00 Test Item Value Reference Range Interpretation Comments UA Amorph Destiny (test code = Occasional /HPF UA Amorph Destiny) [facility] AND [id number] 16:34:00 Test Item Value Reference Range Interpretation Comments UA Leuk Est (test Negative (07/25/16 10:34 code = UA Leuk Est) AM) [facility] AND [id number] 16:34:00 Test Item Value Reference Range Interpretation Comments UA Nitrite (test code Negative (07/25/16 10:34 = UA Nitrite) AM) [facility] AND [id number] 16:34:00 Test Item Value Reference Range Interpretation Comments UA RBC (test code = 2 See_Comment [Automa rohit message] The UA RBC) system which ge nerated this result transmit rohit reference range : <=2. The reference range was not used to interpr et this result as reji l/abnormal. [facility] AND [id number] 16:34:00 Test Item Value Reference Range Interpretation Comments UA WBC (test code = 6 See_Comment [Automa rohit message] The UA WBC) system which ge nerated this result transmit rohit reference range : <=5. The reference range was not used to interpr et this result as reji l/abnormal. [facility] AND [id number] 16:34:00 Test Item Value Reference Range Interpretation Comments UA Urobilinogen (test code = UA 2.0 0.1-1.0 Urobilinogen) [facility] AND [id number] 16:34:00 Test Item Value Reference Range Interpretation Comments UA Ketones (test code = UA Negative mg/dL Ketones) [facility] AND [id number] 16:34:00 Test Item Value Reference Range Interpretation Comments UA Glucose (test code = UA Glucose) 70 mg/dL [facility] AND [id number] 16:34:00 Test Item Value Reference Range Interpretation Comments UA Blood (test code = Negative (07/25/16 10:34 UA Blood) AM) [facility] AND [id number] 16:34:00 Test Item Value Reference Range Interpretation Comments UA Bili (test code = Negative *NA*(07/25/16 UA Bili) 10:34 AM) [facility] AND [id number] 16:34:00 Test Item Value Reference Range Interpretation Comments UA Protein (test code = UA >=300 mg/dL Protein) [facility] AND [id number] 16:34:00 Test Item Value Reference Range Interpretation Comments UA Spec Grav (test code = UA Spec Grav) 1.012 [facility] AND [id number] 16:34:00 Test Item Value Reference Range Interpretation Comments UA pH (test code = UA pH) 5.5 5.0-8.0 [facility] AND [id number] 16:34:00 Test Item Value Reference Range Interpretation Comments UA Turbidity (test code Slight *ABN*(07/25/16 = UA Turbidity) 10:34 AM) [facility] [id number] 16:34:00 Test Item Value Reference Range Interpretation Comments UA Color (test code = Dark Yellow *NA*(07/25/16 UA Color) 10:34 AM) [facility] [id number] 16:34:00 Test Item Value Reference Range Interpretation Comments UA Gran Cast (test code = UA Gran Cast) 9 [facility] [id number] 16:34:00 Test Item Value Reference Range Interpretation Comments U Sodium (test code = U Sodium) 30 [facility] [id number] 16:34:00 Test Item Value Reference Range Interpretation Comments U Prot/Creat (test code = U Prot/Creat) 3.1 [facility]2017-02-04 16:34:00 Test Item Value Reference Range Interpretation Comments U Protein (test code = U Protein) 420.9 [facility] [id number] 16:34:00 Test Item Value Reference Range Interpretation Comments U Creatinine (test code = U 136.00 Creatinine) [facility] AND [id number] 16:34:00 Test Item Value Reference Range Interpretation Comments UA Sq Epi (test code = UA Sq Epi) None Seen [facility] AND [id number] 16:34:00 Test Item Value Reference Range Interpretation Comments UA Waxy Cast (test code = UA Waxy Cast) 1 [facility] AND [id number] 16:34:00 Test Item Value Reference Range Interpretation Comments UA Hyal Cast (test 4 See_Comment [Automat ed message] The code = UA Hyal Cast) system which generated this result transmit rohit reference range : <=2. The reference range was not used to interpr et this result as reji l/abnormal. [facility] [id number] 16:34:00 Test Item Value Reference Range Interpretation Comments UA Bacteria (test code = UA Occasional /HPF Bacteria) [facility] [id number] 16:34:00 Test Item Value Reference Range Interpretation Comments UA Mucus (test code = UA Mucus) Few /LPF [facility] [id number] 16:34:00 Test Item Value Reference Range Interpretation Comments UA Amorph Destiny (test code = Occasional /HPF UA Amorph Destiny) [facility] AND [id number] 16:34:00 Test Item Value Reference Range Interpretation Comments UA Leuk Est (test Negative (07/25/16 10:34 code = UA Leuk Est) AM) [facility] AND [id number] 16:34:00 Test Item Value Reference Range Interpretation Comments UA Nitrite (test code Negative (07/25/16 10:34 = UA Nitrite) AM) [facility] AND [id number] 16:34:00 Test Item Value Reference Range Interpretation Comments UA RBC (test code = 2 See_Comment [Automa rohit message] The UA RBC) system which ge nerated this result transmit rohit reference range : <=2. The reference range was not used to interpr et this result as reji l/abnormal. [facility] AND [id number] 16:34:00 Test Item Value Reference Range Interpretation Comments UA WBC (test code = 6 See_Comment [Automa rohit message] The UA WBC) system which ge nerated this result transmit rohit reference range : <=5. The reference range was not used to interpr et this result as reji l/abnormal. [facility] AND [id number] 16:34:00 Test Item Value Reference Range Interpretation Comments UA Urobilinogen (test code = UA 2.0 0.1-1.0 Urobilinogen) [facility] AND [id number] 16:34:00 Test Item Value Reference Range Interpretation Comments UA Ketones (test code = UA Negative mg/dL Ketones) [facility] AND [id number] 16:34:00 Test Item Value Reference Range Interpretation Comments UA Glucose (test code = UA Glucose) 70 mg/dL [facility] AND [id number] 16:34:00 Test Item Value Reference Range Interpretation Comments UA Blood (test code = Negative (07/25/16 10:34 UA Blood) AM) [facility] AND [id number] 16:34:00 Test Item Value Reference Range Interpretation Comments UA Bili (test code = Negative *NA*(07/25/16 UA Bili) 10:34 AM) [facility] AND [id number] 16:34:00 Test Item Value Reference Range Interpretation Comments UA Protein (test code = UA >=300 mg/dL Protein) [facility] AND [id number] 16:34:00 Test Item Value Reference Range Interpretation Comments UA Spec Grav (test code = UA Spec Grav) 1.012 [facility] AND [id number] 16:34:00 Test Item Value Reference Range Interpretation Comments UA pH (test code = UA pH) 5.5 5.0-8.0 [facility] AND [id number] 16:34:00 Test Item Value Reference Range Interpretation Comments UA Turbidity (test code Slight *ABN*(07/25/16 = UA Turbidity) 10:34 AM) [facility] AND [id number] 16:34:00 Test Item Value Reference Range Interpretation Comments UA Color (test code = Dark Yellow *NA*(07/25/16 UA Color) 10:34 AM) [facility] AND [id number] 16:34:00 Test Item Value Reference Range Interpretation Comments UA Gran Cast (test code = UA Gran Cast) 9 [facility] [id number] 16:34:00 Test Item Value Reference Range Interpretation Comments U Sodium (test code = U Sodium) 30 [facility] [id number] 16:34:00 Test Item Value Reference Range Interpretation Comments U Prot/Creat (test code = U Prot/Creat) 3.1 [facility]2017-02-04 16:34:00 Test Item Value Reference Range Interpretation Comments U Protein (test code = U Protein) 420.9 [facility] [id number] 16:34:00 Test Item Value Reference Range Interpretation Comments U Creatinine (test code = U 136.00 Creatinine) [facility] [id number] 08:55:00 Test Item Value Reference Range Interpretation Comments Magnesium Lvl (test code = Magnesium 2.0 1.8-2.4 Lvl) [facility] [id number] 08:55:00 Test Item Value Reference Range Interpretation Comments Phosphorus (test code = Phosphorus) 5.2 2.5-4.5 [facility] [id number] 08:55:00 Test Item Value Reference Range Interpretation Comments Magnesium Lvl (test code = Magnesium 2.0 1.8-2.4 Lvl) [facility] [id number] 08:55:00 Test Item Value Reference Range Interpretation Comments Phosphorus (test code = Phosphorus) 5.2 2.5-4.5 [facility] [id number] 17:29:00 Test Item Value Reference Range Interpretation Comments Troponin-I (test code 0.28 See_Comment [Auto mated message] The = Troponin-I) system which g enerated this result transmit rohit reference range : <=0.40. The reference r leo was not used to interpr et this result as reji l/abnormal. [facility] [id number] 17:29:00 Test Item Value Reference Range Interpretation Comments Total CK (test code = Total CK) 2616 12-191 [facility] [id number] 17:29:00 Test Item Value Reference Range Interpretation Comments Troponin-T (test code 0.144 See_Comment [Auto mated message] The = Troponin-T) system which g enerated this result transmit rohit reference range : <=0.100. The reference r leo was not used to interpr et this result as reji l/abnormal. [facility] [id number] 17:29:00 Test Item Value Reference Range Interpretation Comments CK MB Index (test 0.2 See_Comment [Automate d message] The code = CK MB Index) system w [facility] generated this result transmit rohit reference range : <=2.5. The reference range was not used to interpr et this result as reji l/abnormal. [facility] CypressAbyz2017-02-03 17:29:00 Test Item Value Reference Range Interpretation Comments CK MB (test code = CK MB) 6.3 0.5-3.6 [facility]2017-02-03 17:29:00 Test Item Value Reference Range Interpretation Comments Troponin-I (test code 0.28 See_Comment [Auto mated message] The = Troponin-I) system which g enerated this result transmit rohit reference range : <=0.40. The reference r leo was not used to interpr et this result as reji l/abnormal. [facility] [id number] 17:29:00 Test Item Value Reference Range Interpretation Comments Total CK (test code = Total CK) 2616 12-191 [facility] [id number] 17:29:00 Test Item Value Reference Range Interpretation Comments Troponin-T (test code 0.144 See_Comment [Auto mated message] The = Troponin-T) system which g enerated this result transmit rohit reference range : <=0.100. The reference r leo was not used to interpr et this result as reji l/abnormal. [facility]ressnaeemM[facility]oni [id number] 17:29:00 Test Item Value Reference Range Interpretation Comments CK MB Index (test 0.2 See_Comment [Automate d message] The code = CK MB Index) system w [facility] generated this result transmit rohit reference range : <=2.5. The reference range was not used to interpr et this result as reji l/abnormal. [facility] CypressnaeemMis[facility] [id number] 17:29:00 Test Item Value Reference Range Interpretation Comments CK MB (test code = CK MB) 6.3 0.5-3.6 [facility] [id number] 11:20:00 Test Item Value Reference Range Interpretation Comments Troponin-I (test code 0.38 See_Comment [Auto mated message] The = Troponin-I) system which g enerated this result transmit rohit reference range : <=0.40. The reference r leo was not used to interpr et this result as reji l/abnormal. [facility]ress[facility]2017-02-[facility] 11:20:00 Test Item Value Reference Range Interpretation Comments Troponin-T (test code 0.173 See_Comment [Auto mated message] The = Troponin-T) system which g enerated this result transmit rohit reference range : <=0.100. The reference r leo was not used to interpr et this result as reji l/abnormal. [facility]2017-[facility] 11:20:00 Test Item Value Reference Range Interpretation Comments CK MB Index (test 0.2 See_Comment [Automate d message] The code = CK MB Index) system w [facility] generated this result transmit rohit reference range : <=2.5. The reference range was not used to interpr et this result as reji l/abnormal. [facility]2017-02-03 11:20:00 Test Item Value Reference Range Interpretation Comments CK MB (test code = CK MB) 5.6 0.5-3.6 [facility] [id number] 11:20:00 Test Item Value Reference Range Interpretation Comments Phosphorus (test code = Phosphorus) 5.5 2.5-4.5 [facility]2017-02-03 11:20:00 Test Item Value Reference Range Interpretation Comments Troponin-I (test code 0.38 See_Comment [Auto mated message] The = Troponin-I) system which g enerated this result transmit rohit reference range : <=0.40. The reference r leo was not used to interpr et this result as reji l/abnormal. [facility]2017-02-03 11:20:00 Test Item Value Reference Range Interpretation Comments Troponin-T (test code 0.173 See_Comment [Auto mated message] The = Troponin-T) system which g enerated this result transmit rohit reference range : <=0.100. The reference r leo was not used to interpr et this result as reji l/abnormal. [facility] 11:20:00 Test Item Value Reference Range Interpretation Comments CK MB Index (test 0.2 See_Comment [Automate d message] The code = CK MB Index) system w [facility] generated this result transmit rohit reference range : <=2.5. The reference range was not used to interpr et this result as reji l/abnormal. [facility]2017-02-03 11:20:00 Test Item Value Reference Range Interpretation Comments CK MB (test code = CK MB) 5.6 0.5-3.6 [facility] [id number] 11:20:00 Test Item Value Reference Range Interpretation Comments Phosphorus (test code = Phosphorus) 5.5 2.5-4.5 [facility]2017-02-03 06:18:00 Test Item Value Reference Range Interpretation Comments BNP (test code = BNP) 701 [facility]2017-02-03 06:18:00 Test Item Value Reference Range Interpretation Comments BNP (test code = BNP) 701 [facility] [id number] 04:59:27 Test Item Value Reference Range Interpretation Comments Troponin-I (test code 0.57 See_Comment [Auto mated message] The = Troponin-I) system which g enerated this result transmit rohit reference range : <=0.40. The reference r leo was not used to interpr et this result as reji l/abnormal. [facility]2017-02-03 04:59:27 Test Item Value Reference Range Interpretation Comments Troponin-I (test code 0.57 See_Comment [Auto mated message] The = Troponin-I) system which g enerated this result transmit rohit reference range : <=0.40. The reference r leo was not used to interpr et this result as reji l/abnormal. [facility]2016-12-26 10:22:00 Test Item Value Reference Range Interpretation Comments BNP (test code = BNP) 526 [email or web address] 10:22:00 Test Item Value Reference Range Interpretation Comments Magnesium Lvl (test code = Magnesium 2.1 1.8-2.4 Lvl) [email or web address] 10:22:00 Test Item Value Reference Range Interpretation Comments Glucose Lvl (test code = Glucose Lvl) 117 70-99 [facility] AKBEK7630-58-90 10:22:00 Test Item Value Reference Range Interpretation Comments BUN (test code = BUN) 41 7-22 [email or web address] 10:22:00 Test Item Value Reference Range Interpretation Comments Creatinine Lvl (test code = Creatinine 2.00 0.50-1.40 Lvl) [email or web address] 10:22:00 Test Item Value Reference Range Interpretation Comments Calcium Lvl (test code = Calcium Lvl) 9.0 8.5-10.5 [email or web address] 10:22:00 Test Item Value Reference Range Interpretation Comments Chloride Lvl (test code = Chloride Lvl) 102 95-109 [email or web address] 10:22:00 Test Item Value Reference Range Interpretation Comments CO2 (test code = CO2) 33 24-32 [facility]2016-12-26 10:22:00 Test Item Value Reference Range Interpretation Comments Sodium Lvl (test code = Sodium Lvl) 144 135-145 [facility]2016-12-26 10:22:00 Test Item Value Reference Range Interpretation Comments Potassium Lvl (test code = Potassium 4.0 3.5-5.1 Lvl) [facility]2016-12-26 10:22:00 Test Item Value Reference Range Interpretation Comments eGFR (test code = eGFR) 32 [facility]2016-12-26 10:22:00 Test Item Value Reference Range Interpretation Comments AGAP (test code = AGAP) 13.0 10.0-20.0 [facility]2016-12-26 10:22:00 Test Item Value Reference Range Interpretation Comments Phosphorus (test code = Phosphorus) 4.6 2.5-4.5 [facility]ItwtdpvTEHVIRNFJE8731-33-46 10:22:00 Test Item Value Reference Range Interpretation Comments RBC (test code = RBC) 3.68 4.20-5.40 [facility] HospitalXkjmvucFJKJCMEAUE6163-05-93 10:22:00 Test Item Value Reference Range Interpretation Comments Hgb (test code = Hgb) 9.9 12.0-16.0 [facility] HospitalFuugwvcSLAQFSPHHT6096-61-03 10:22:00 Test Item Value Reference Range Interpretation Comments MCH (test code = MCH) 26.8 pg 27.0-31.0 [facility] HospitalVrjcbugJYVEGHUYWE5719-19-29 10:22:00 Test Item Value Reference Range Interpretation Comments MCHC (test code = MCHC) 34.2 32.0-36.0 [facility] HospitalNzogkvyMYHMMGEYID2788-88-42 10:22:00 Test Item Value Reference Range Interpretation Comments MCV (test code = MCV) 78.3 80.0-98.0 [facility] HospitalZfoxfmkIDYJDBZGRF2955-65-84 10:22:00 Test Item Value Reference Range Interpretation Comments Hct (test code = Hct) 28.8 36.0-48.0 [facility] HospitalOtqgdzeQPPZOVMGDU6549-65-28 10:22:00 Test Item Value Reference Range Interpretation Comments Platelet (test code = Platelet) 191 133-450 [facility] HospitalWyhlfhfDBAWYHQCLL6163-99-30 10:22:00 Test Item Value Reference Range Interpretation Comments MPV (test code = MPV) 9.5 7.4-10.4 [facility] HospitalZpapdcdDEZTINRXYR0213-39-80 10:22:00 Test Item Value Reference Range Interpretation Comments RDW (test code = RDW) 15.3 11.5-14.5 [facility] HospitalAuyxjesFPCDOYKMED1842-36-71 10:22:00 Test Item Value Reference Range Interpretation Comments WBC (test code = WBC) 5.6 3.7-10.4 [facility] HospitalAcuulupDIGBTWRSZX4951-22-29 10:22:00 Test Item Value Reference Range Interpretation Comments Eosinophils # (test code 0.5 See_Comment [A utomated message] The = Eosinophils #) system whic h generated this result tra nsmitted reference range : <=0.5. The reference r leo was not used to int erpret this result as normal/abnormal . [facility] HospitalBqhpxfnNUOTYBKAQZ0049-11-63 10:22:00 Test Item Value Reference Range Interpretation Comments Microcyte (test code = 1+ *ABN*(06/15/16 Microcyte) 4:22 AM) [facility] HospitalRpaulcqSGXDWLQGUW2149-20-52 10:22:00 Test Item Value Reference Range Interpretation Comments Basophils # (test code 0.1 See_Comment [Aut omated message] The = Basophils #) system which generated this result tra nsmitted reference range : <=0.2. The reference r leo was not used to int erpret this result as normal/abnormal . [facility] HospitalBwiduceGDEARAVROR5395-52-18 10:22:00 Test Item Value Reference Range Interpretation Comments Lymphocytes (test code = Lymphocytes) 33.5 20.0-40.0 [facility] HospitalFnvziwvBDWMCCHIHN9890-79-07 10:22:00 Test Item Value Reference Range Interpretation Comments Segs (test code = Segs) 47.6 45.0-75.0 [facility] HospitalChbsikqYVKSOXREKO3978-56-33 10:22:00 Test Item Value Reference Range Interpretation Comments Monocytes (test code = Monocytes) 8.4 2.0-12.0 [facility] HospitalBbhltytIMNODXZNTK5115-09-25 10:22:00 Test Item Value Reference Range Interpretation Comments Eosinophils (test code = 9.4 See_Comment [A utomated message] The Eosinophils) system which ge nerated this result tra nsmitted reference range : <=4.0. The reference r leo was not used to int erpret this result as normal/abnormal . [facility] HospitalTajjgndXHBQRXAWEL5936-01-45 10:22:00 Test Item Value Reference Range Interpretation Comments Segs-Bands # (test code = Segs-Bands #) 2.6 1.5-8.1 [facility] HospitalGopubytGLERGKNIEE4593-56-46 10:22:00 Test Item Value Reference Range Interpretation Comments Lymphocytes # (test code = Lymphocytes 1.9 1.0-5.5 #) [facility] HospitalNijwjejPKRXHAYPQN5652-28-04 10:22:00 Test Item Value Reference Range Interpretation Comments Basophils (test code = 1.1 See_Comment [Aut omated message] The Basophils) system which ge nerated this result tra nsmitted reference range : <=1.0. The reference r leo was not used to int erpret this result as normal/abnormal . [facility] HospitalYpkrldcBSFFBWSNXP0354-44-88 10:22:00 Test Item Value Reference Range Interpretation Comments Monocytes # (test code 0.5 See_Comment [Aut omated message] The = Monocytes #) system which generated this result tra nsmitted reference range : <=0.8. The reference r leo was not used to int erpret this result as normal/abnormal . [facility] NLGLPJG1541-85-40 10:22:00 Test Item Value Reference Range Interpretation Comments BNP (test code = BNP) 526 [facility]2016-12-26 10:22:00 Test Item Value Reference Range Interpretation Comments Magnesium Lvl (test code = Magnesium 2.1 1.8-2.4 Lvl) [facility]2016-12-26 10:22:00 Test Item Value Reference Range Interpretation Comments Glucose Lvl (test code = Glucose Lvl) 117 70-99 [facility]2016-12-26 10:22:00 Test Item Value Reference Range Interpretation Comments BUN (test code = BUN) 41 7-22 [facility]2016-12-26 10:22:00 Test Item Value Reference Range Interpretation Comments Creatinine Lvl (test code = Creatinine 2.00 0.50-1.40 Lvl) [facility]2016-12-26 10:22:00 Test Item Value Reference Range Interpretation Comments Calcium Lvl (test code = Calcium Lvl) 9.0 8.5-10.5 [facility]2016-12-26 10:22:00 Test Item Value Reference Range Interpretation Comments Chloride Lvl (test code = Chloride Lvl) 102 95-109 [facility]2016-12-26 10:22:00 Test Item Value Reference Range Interpretation Comments CO2 (test code = CO2) 33 24-32 [facility]2016-12-26 10:22:00 Test Item Value Reference Range Interpretation Comments Sodium Lvl (test code = Sodium Lvl) 144 135-145 [facility]2016-12-26 10:22:00 Test Item Value Reference Range Interpretation Comments Potassium Lvl (test code = Potassium 4.0 3.5-5.1 Lvl) [facility]2016-12-26 10:22:00 Test Item Value Reference Range Interpretation Comments eGFR (test code = eGFR) 32 [facility]2016-12-26 10:22:00 Test Item Value Reference Range Interpretation Comments AGAP (test code = AGAP) 13.0 10.0-20.0 [facility]2016-12-26 10:22:00 Test Item Value Reference Range Interpretation Comments Phosphorus (test code = Phosphorus) 4.6 2.5-4.5 [facility] HospitalLxcwuofMVIRQVKESJ6495-33-28 10:22:00 Test Item Value Reference Range Interpretation Comments RBC (test code = RBC) 3.68 4.20-5.40 [facility] HospitalPlgftysGYABBQSVKE4317-92-33 10:22:00 Test Item Value Reference Range Interpretation Comments Hgb (test code = Hgb) 9.9 12.0-16.0 [facility] HospitalIlqnhtdGYWJVRKTAU4115-84-39 10:22:00 Test Item Value Reference Range Interpretation Comments MCH (test code = MCH) 26.8 pg 27.0-31.0 [facility] HospitalPqpfhdeMUVUWFWION4840-89-83 10:22:00 Test Item Value Reference Range Interpretation Comments MCHC (test code = MCHC) 34.2 32.0-36.0 [facility] HospitalGgbdcsnUKKSONOIVG1050-33-05 10:22:00 Test Item Value Reference Range Interpretation Comments MCV (test code = MCV) 78.3 80.0-98.0 [place] 092486-12-26 10:22:00 Test Item Value Reference Range Interpretation Comments Hct (test code = Hct) 28.8 36.0-48.0 [facility] HospitalDqhalahQSCWIULZSS4554-79-01 10:22:00 Test Item Value Reference Range Interpretation Comments Platelet (test code = Platelet) 191 133-450 [facility] HospitalXubnqwlUXZAUJWSWP6312-15-57 10:22:00 Test Item Value Reference Range Interpretation Comments MPV (test code = MPV) 9.5 7.4-10.4 [facility] HospitalAkxzyksUGXDPNZCVA6943-94-44 10:22:00 Test Item Value Reference Range Interpretation Comments RDW (test code = RDW) 15.3 11.5-14.5 [facility] HospitalDvxzhldPDFOUAYOWQ1039-39-05 10:22:00 Test Item Value Reference Range Interpretation Comments WBC (test code = WBC) 5.6 3.7-10.4 [facility] HospitalRcimssaKRVUEQVSQG1038-66-17 10:22:00 Test Item Value Reference Range Interpretation Comments Eosinophils # (test code 0.5 See_Comment [A utomated message] The = Eosinophils #) system [facility] generated this result tra nsmitted reference range : <=0.5. The reference r leo was not used to int erpret this result as normal/abnormal . [facility] HospitalDpsgexjIGYWQLFBCM1782-55-52 10:22:00 Test Item Value Reference Range Interpretation Comments Microcyte (test code = 1+ *ABN*(06/15/16 Microcyte) 4:22 AM) [facility] HospitalGthmnfjLVDCZVOJSN7112-33-89 10:22:00 Test Item Value Reference Range Interpretation Comments Basophils # (test code 0.1 See_Comment [Aut omated message] The = Basophils #) system which generated this result tra nsmitted reference range : <=0.2. The reference r leo was not used to int erpret this result as normal/abnormal . [facility] HospitalLrqjvraIYPVRZKYPD6672-14-18 10:22:00 Test Item Value Reference Range Interpretation Comments Lymphocytes (test code = Lymphocytes) 33.5 20.0-40.0 [facility] HospitalIyenimqRELOFQTVWL6888-49-71 10:22:00 Test Item Value Reference Range Interpretation Comments Segs (test code = Segs) 47.6 45.0-75.0 [facility] HospitalUkmokfwJAMDBLBJUE4604-45-73 10:22:00 Test Item Value Reference Range Interpretation Comments Monocytes (test code = Monocytes) 8.4 2.0-12.0 [facility] HospitalPztfpveQPAOMIKBWF0393-40-35 10:22:00 Test Item Value Reference Range Interpretation Comments Eosinophils (test code = 9.4 See_Comment [A utomated message] The Eosinophils) system which ge nerated this result tra nsmitted reference range : <=4.0. The reference r leo was not used to int erpret this result as normal/abnormal . [facility] HospitalIkvhintCKDFLYOTAY2678-89-26 10:22:00 Test Item Value Reference Range Interpretation Comments Segs-Bands # (test code = Segs-Bands #) 2.6 1.5-8.1 [facility] HospitalDttejsnZURXOWLBMV3947-03-95 10:22:00 Test Item Value Reference Range Interpretation Comments Lymphocytes # (test code = Lymphocytes 1.9 1.0-5.5 #) [facility] HospitalSdeevzhPNXDTLEUBL1367-20-06 10:22:00 Test Item Value Reference Range Interpretation Comments Basophils (test code = 1.1 See_Comment [Aut omated message] The Basophils) system which ge nerated this result tra nsmitted reference range : <=1.0. The reference r leo was not used to int erpret this result as normal/abnormal . [facility] HospitalVysnqolGSPRETQMAK7226-00-39 10:22:00 Test Item Value Reference Range Interpretation Comments Monocytes # (test code 0.5 See_Comment [Aut omated message] The = Monocytes #) system which generated this result tra nsmitted reference range : <=0.8. The reference r leo was not used to int erpret this result as normal/abnormal . [facility]2016-12-25 11:03:00 Test Item Value Reference Range Interpretation Comments Phosphorus (test code = Phosphorus) 4.8 2.5-4.5 [facility]2016-12-25 11:03:00 Test Item Value Reference Range Interpretation Comments Magnesium Lvl (test code = Magnesium 2.0 1.8-2.4 Lvl) [facility]2016-12-25 11:03:00 Test Item Value Reference Range Interpretation Comments eGFR (test code = eGFR) 32 [facility]2016-12-25 11:03:00 Test Item Value Reference Range Interpretation Comments Chloride Lvl (test code = Chloride Lvl) 101 95-109 [place] 782446-12-25 11:03:00 Test Item Value Reference Range Interpretation Comments Potassium Lvl (test code = Potassium 4.4 3.5-5.1 Lvl) [facility]2016-12-25 11:03:00 Test Item Value Reference Range Interpretation Comments BUN (test code = BUN) 37 7-22 [facility]2016-12-25 11:03:00 Test Item Value Reference Range Interpretation Comments Glucose Lvl (test code = Glucose Lvl) 119 70-99 [facility]2016-12-25 11:03:00 Test Item Value Reference Range Interpretation Comments Creatinine Lvl (test code = Creatinine 2.00 0.50-1.40 Lvl) [facility]2016-12-25 11:03:00 Test Item Value Reference Range Interpretation Comments Sodium Lvl (test code = Sodium Lvl) 142 135-145 [facility]2016-12-25 11:03:00 Test Item Value Reference Range Interpretation Comments Calcium Lvl (test code = Calcium Lvl) 8.7 8.5-10.5 [facility]2016-12-25 11:03:00 Test Item Value Reference Range Interpretation Comments CO2 (test code = CO2) 32 24-32 [facility]2016-12-25 11:03:00 Test Item Value Reference Range Interpretation Comments AGAP (test code = AGAP) 13.4 10.0-20.0 [facility] HospitalQrzieawVKDFTBYVBK4351-42-79 11:03:00 Test Item Value Reference Range Interpretation Comments Eosinophils (test code = 10.3 See_Comment [A utomated message] The Eosinophils) system which ge nerated this result tra nsmitted reference range : <=4.0. The reference r leo was not used to int erpret this result as normal/abnormal . [place] 092486-12-25 11:03:00 Test Item Value Reference Range Interpretation Comments Basophils # (test code 0.1 See_Comment [Aut omated message] The = Basophils #) system which generated this result tra nsmitted reference range : <=0.2. The reference r leo was not used to int erpret this result as normal/abnormal . [place] 092486-12-25 11:03:00 Test Item Value Reference Range Interpretation Comments Eosinophils # (test code 0.5 See_Comment [A utomated message] The = Eosinophils #) system whic h generated this result tra nsmitted reference range : <=0.5. The reference r leo was not used to int erpret this result as normal/abnormal . [facility] HospitalRknqffuQFMHGTZTRK3694-00-88 11:03:00 Test Item Value Reference Range Interpretation Comments Monocytes # (test code 0.5 See_Comment [Aut omated message] The = Monocytes #) system which generated this result tra nsmitted reference range : <=0.8. The reference r leo was not used to int erpret this result as normal/abnormal . [facility] HospitalMowsvigXXSEMJFAVX7781-98-67 11:03:00 Test Item Value Reference Range Interpretation Comments Segs-Bands # (test code = Segs-Bands #) 2.1 1.5-8.1 [facility] HospitalTbcqpwwVIFHGPYJGS0874-35-03 11:03:00 Test Item Value Reference Range Interpretation Comments Basophils (test code = 1.2 See_Comment [Aut omated message] The Basophils) system which ge nerated this result tra nsmitted reference range : <=1.0. The reference r leo was not used to int erpret this result as normal/abnormal . [facility] HospitalBegpacfEZSXSOAUYZ1853-08-24 11:03:00 Test Item Value Reference Range Interpretation Comments Lymphocytes # (test code = Lymphocytes 1.9 1.0-5.5 #) [facility] HospitalTebdjdgPPNCUUKWYN4955-26-28 11:03:00 Test Item Value Reference Range Interpretation Comments Segs (test code = Segs) 42.5 45.0-75.0 [facility] HospitalGqtvvumSWTJLQCDBU3691-64-96 11:03:00 Test Item Value Reference Range Interpretation Comments Lymphocytes (test code = Lymphocytes) 37.0 20.0-40.0 [facility] HospitalMocubwqPGWHERPJNZ2702-09-59 11:03:00 Test Item Value Reference Range Interpretation Comments Monocytes (test code = Monocytes) 9.0 2.0-12.0 [facility] HospitalJfmptscBFHBKAGIRN6706-80-97 11:03:00 Test Item Value Reference Range Interpretation Comments MPV (test code = MPV) 9.8 7.4-10.4 [facility] HospitalGxdidkqKKZSLNAPGW7197-10-72 11:03:00 Test Item Value Reference Range Interpretation Comments WBC (test code = WBC) 5.0 3.7-10.4 [facility] HospitalCwdcmiiFHCNVPTWSE2705-19-30 11:03:00 Test Item Value Reference Range Interpretation Comments RBC (test code = RBC) 3.57 4.20-5.40 [facility] HospitalAgwjnlmDYRYDWQQPU2528-26-55 11:03:00 Test Item Value Reference Range Interpretation Comments Hgb (test code = Hgb) 9.4 12.0-16.0 [facility] HospitalKfmhqtrDLRNIARDXU2841-52-53 11:03:00 Test Item Value Reference Range Interpretation Comments Hct (test code = Hct) 28.5 36.0-48.0 [facility] HospitalYscfopuGAWARAIFLA4888-76-20 11:03:00 Test Item Value Reference Range Interpretation Comments Platelet (test code = Platelet) 183 133-450 [facility] HospitalXekixtzRJBFLOXISX5980-76-36 11:03:00 Test Item Value Reference Range Interpretation Comments MCV (test code = MCV) 79.9 80.0-98.0 [facility] HospitalSoofkxsLUDROPSWCJ8435-27-07 11:03:00 Test Item Value Reference Range Interpretation Comments MCH (test code = MCH) 26.3 pg 27.0-31.0 [facility] HospitalZilshqtCEATUNDWCN9979-19-38 11:03:00 Test Item Value Reference Range Interpretation Comments MCHC (test code = MCHC) 33.0 32.0-36.0 [facility] HospitalWpbcgyjCLHNQAYVJX8546-37-90 11:03:00 Test Item Value Reference Range Interpretation Comments RDW (test code = RDW) 15.9 11.5-14.5 [facility]2016-12-25 11:03:00 Test Item Value Reference Range Interpretation Comments Phosphorus (test code = Phosphorus) 4.8 2.5-4.5 [facility]2016-12-25 11:03:00 Test Item Value Reference Range Interpretation Comments Magnesium Lvl (test code = Magnesium 2.0 1.8-2.4 Lvl) [facility]2016-12-25 11:03:00 Test Item Value Reference Range Interpretation Comments eGFR (test code = eGFR) 32 [facility]2016-12-25 11:03:00 Test Item Value Reference Range Interpretation Comments Chloride Lvl (test code = Chloride Lvl) 101 95-109 [facility]2016-12-25 11:03:00 Test Item Value Reference Range Interpretation Comments Potassium Lvl (test code = Potassium 4.4 3.5-5.1 Lvl) [facility]2016-12-25 11:03:00 Test Item Value Reference Range Interpretation Comments BUN (test code = BUN) 37 7-22 [place] 782446-12-25 11:03:00 Test Item Value Reference Range Interpretation Comments Glucose Lvl (test code = Glucose Lvl) 119 70-99 [place] 782446-12-25 11:03:00 Test Item Value Reference Range Interpretation Comments Creatinine Lvl (test code = Creatinine 2.00 0.50-1.40 Lvl) [place] 782446-12-25 11:03:00 Test Item Value Reference Range Interpretation Comments Sodium Lvl (test code = Sodium Lvl) 142 135-145 [place] 782446-12-25 11:03:00 Test Item Value Reference Range Interpretation Comments Calcium Lvl (test code = Calcium Lvl) 8.7 8.5-10.5 [place] 782446-12-25 11:03:00 Test Item Value Reference Range Interpretation Comments CO2 (test code = CO2) 32 24-32 [place] 782446-12-25 11:03:00 Test Item Value Reference Range Interpretation Comments AGAP (test code = AGAP) 13.4 10.0-20.0 [place] 092486-12-25 11:03:00 Test Item Value Reference Range Interpretation Comments Eosinophils (test code = 10.3 See_Comment [A utomated message] The Eosinophils) system which ge nerated this result tra nsmitted reference range : <=4.0. The reference r leo was not used to int erpret this result as normal/abnormal . [place] 092486-12-25 11:03:00 Test Item Value Reference Range Interpretation Comments Basophils # (test code 0.1 See_Comment [Aut omated message] The = Basophils #) system which generated this result tra nsmitted reference range : <=0.2. The reference r leo was not used to int erpret this result as normal/abnormal . [place] 092486-12-25 11:03:00 Test Item Value Reference Range Interpretation Comments Eosinophils # (test code 0.5 See_Comment [A utomated message] The = Eosinophils #) system whic h generated this result tra nsmitted reference range : <=0.5. The reference r leo was not used to int erpret this result as normal/abnormal . [facility] HospitalTgowycmUBFRCHEFIU4882-53-64 11:03:00 Test Item Value Reference Range Interpretation Comments Monocytes # (test code 0.5 See_Comment [Aut omated message] The = Monocytes #) system which generated this result tra nsmitted reference range : <=0.8. The reference r leo was not used to int erpret this result as normal/abnormal . [facility] HospitalJsjxvxkVSUNUNRFYY2080-33-16 11:03:00 Test Item Value Reference Range Interpretation Comments Segs-Bands # (test code = Segs-Bands #) 2.1 1.5-8.1 [facility] HospitalYquigwuXWGDVWHFJH9294-27-79 11:03:00 Test Item Value Reference Range Interpretation Comments Basophils (test code = 1.2 See_Comment [Aut omated message] The Basophils) system which ge nerated this result tra nsmitted reference range : <=1.0. The reference r leo was not used to int erpret this result as normal/abnormal . [facility] HospitalIhenugqDHYHFZXIBZ0749-72-17 11:03:00 Test Item Value Reference Range Interpretation Comments Lymphocytes # (test code = Lymphocytes 1.9 1.0-5.5 #) [facility] HospitalDaulsrwFSMWNAKUTG9367-90-13 11:03:00 Test Item Value Reference Range Interpretation Comments Segs (test code = Segs) 42.5 45.0-75.0 [facility] HospitalIbeuutkLDQJJIECXF2321-06-46 11:03:00 Test Item Value Reference Range Interpretation Comments Lymphocytes (test code = Lymphocytes) 37.0 20.0-40.0 [facility] HospitalInsocgpWFHQBPRGLK5404-56-31 11:03:00 Test Item Value Reference Range Interpretation Comments Monocytes (test code = Monocytes) 9.0 2.0-12.0 [facility] HospitalIpuhcnqSZKBCDMHRF3829-85-46 11:03:00 Test Item Value Reference Range Interpretation Comments MPV (test code = MPV) 9.8 7.4-10.4 [facility]RiuzcuaTSYNMWLXYV0577-66-00 11:03:00 Test Item Value Reference Range Interpretation Comments WBC (test code = WBC) 5.0 3.7-10.4 [facility] HospitalOijcsjuUIAJBDOVPP7596-48-82 11:03:00 Test Item Value Reference Range Interpretation Comments RBC (test code = RBC) 3.57 4.20-5.40 [facility] HospitalQjputomSDWTJTWLQE4306-86-19 11:03:00 Test Item Value Reference Range Interpretation Comments Hgb (test code = Hgb) 9.4 12.0-16.0 [facility] HospitalYxqxlrmLCKNKWMIFB9615-00-97 11:03:00 Test Item Value Reference Range Interpretation Comments Hct (test code = Hct) 28.5 36.0-48.0 [facility] HospitalHxocjjdFLMRTVTQGF3852-88-53 11:03:00 Test Item Value Reference Range Interpretation Comments Platelet (test code = Platelet) 183 133-450 [facility] HospitalXvvfwuiVWPBDTVPDA1591-78-08 11:03:00 Test Item Value Reference Range Interpretation Comments MCV (test code = MCV) 79.9 80.0-98.0 [facility] HospitalJdkzdkdDSLTGSRPQH1820-42-97 11:03:00 Test Item Value Reference Range Interpretation Comments MCH (test code = MCH) 26.3 pg 27.0-31.0 [facility] HospitalLtsohjiIKBCZPAXHS1329-31-05 11:03:00 Test Item Value Reference Range Interpretation Comments MCHC (test code = MCHC) 33.0 32.0-36.0 [facility] HospitalOhapneyIGSJMFYHRW2780-47-94 11:03:00 Test Item Value Reference Range Interpretation Comments RDW (test code = RDW) 15.9 11.5-14.5 [facility]2016-12-24 10:26:00 Test Item Value Reference Range Interpretation Comments U Prot/Creat (test code = U Prot/Creat) 6.9 [facility]2016-12-24 10:26:00 Test Item Value Reference Range Interpretation Comments U Creatinine (test code = U Creatinine) 19.30 [facility]2016-12-24 10:26:00 Test Item Value Reference Range Interpretation Comments U Protein (test code = U Protein) 133.1 [facility]2016-12-24 10:26:00 Test Item Value Reference Range Interpretation Comments U Prot/Creat (test code = U Prot/Creat) 6.9 [facility]2016-12-24 10:26:00 Test Item Value Reference Range Interpretation Comments U Creatinine (test code = U Creatinine) 19.30 [facility] [id number] 10:26:00 Test Item Value Reference Range Interpretation Comments U Protein (test code = U Protein) 133.1 [facility] HospitalEwzhrrxNBGYIMQOMM9892-09-64 09:20:00 Test Item Value Reference Range Interpretation Comments MPV (test code = MPV) 9.7 7.4-10.4 [facility]WrtujfvHRDSIDERHO0268-70-70 09:20:00 Test Item Value Reference Range Interpretation Comments Platelet (test code = Platelet) 184 133-450 [facility]JzytahxDPRYQQZNGB0873-24-17 09:20:00 Test Item Value Reference Range Interpretation Comments RDW (test code = RDW) 15.9 11.5-14.5 [facility] HospitalDlhamhkEGZIVSEVFT1978-16-17 09:20:00 Test Item Value Reference Range Interpretation Comments MCV (test code = MCV) 79.3 80.0-98.0 [facility] HospitalUszkuopJQVHVURGSY9064-12-39 09:20:00 Test Item Value Reference Range Interpretation Comments MCHC (test code = MCHC) 33.0 32.0-36.0 [facility] HospitalDaifzcnYFMVXUVSOI9398-81-07 09:20:00 Test Item Value Reference Range Interpretation Comments MCH (test code = MCH) 26.2 pg 27.0-31.0 [facility] HospitalDjiuwwkKVPNQSSSPN0672-89-23 09:20:00 Test Item Value Reference Range Interpretation Comments Hct (test code = Hct) 29.4 36.0-48.0 [facility] HospitalBljtaduBGIOCAQIGN3333-69-10 09:20:00 Test Item Value Reference Range Interpretation Comments Hgb (test code = Hgb) 9.7 12.0-16.0 [facility] HospitalWhlpdyyBWSDYBKZVT1482-48-85 09:20:00 Test Item Value Reference Range Interpretation Comments RBC (test code = RBC) 3.70 4.20-5.40 [facility] HospitalFhudbbkSUBFKCPVRL7282-59-19 09:20:00 Test Item Value Reference Range Interpretation Comments WBC (test code = WBC) 5.7 3.7-10.4 [facility] HospitalPfvqjoiLGDDYQLJHG9820-21-74 09:20:00 Test Item Value Reference Range Interpretation Comments Basophils # (test code 0.1 See_Comment [Aut omated message] The = Basophils #) system which generated this result tra nsmitted reference range : <=0.2. The reference r leo was not used to int erpret this result as normal/abnormal . [facility] HospitalGhkgovnBMZQPHVRDZ7197-41-70 09:20:00 Test Item Value Reference Range Interpretation Comments Lymphocytes # (test code = Lymphocytes 2.2 1.0-5.5 #) [facility] HospitalByidmumMRIEZHJXLK5438-61-30 09:20:00 Test Item Value Reference Range Interpretation Comments Eosinophils # (test code 0.5 See_Comment [A utomated message] The = Eosinophils #) system whic h generated this result tra nsmitted reference range : <=0.5. The reference r leo was not used to int erpret this result as normal/abnormal . [facility] HospitalUhbtgngOTPZPBERGS4583-85-25 09:20:00 Test Item Value Reference Range Interpretation Comments Monocytes # (test code 0.5 See_Comment [Aut omated message] The = Monocytes #) system which generated this result tra nsmitted reference range : <=0.8. The reference r leo was not used to int erpret this result as normal/abnormal . [facility] HospitalKupxurvNGKNRYQAQR8035-14-55 09:20:00 Test Item Value Reference Range Interpretation Comments Basophils (test code = 1.1 See_Comment [Aut omated message] The Basophils) system which ge nerated this result tra nsmitted reference range : <=1.0. The reference r leo was not used to int erpret this result as normal/abnormal . [facility] HospitalIjvaklzQTZEKMNPCG2278-67-44 09:20:00 Test Item Value Reference Range Interpretation Comments Segs-Bands # (test code = Segs-Bands #) 2.3 1.5-8.1 [facility] HospitalBjjvqrbTWPNHOHSCL4707-93-29 09:20:00 Test Item Value Reference Range Interpretation Comments Eosinophils (test code = 9.5 See_Comment [A utomated message] The Eosinophils) system which ge nerated this result tra nsmitted reference range : <=4.0. The reference r leo was not used to int erpret this result as normal/abnormal . [facility] HospitalSemzcrcMBQNBRVZQQ9329-88-31 09:20:00 Test Item Value Reference Range Interpretation Comments Monocytes (test code = Monocytes) 9.0 2.0-12.0 [place] 092486-12-24 09:20:00 Test Item Value Reference Range Interpretation Comments Lymphocytes (test code = Lymphocytes) 38.9 20.0-40.0 [facility] HospitalSulaypwYTLDIZQHJZ8998-28-48 09:20:00 Test Item Value Reference Range Interpretation Comments Segs (test code = Segs) 41.5 45.0-75.0 [facility] HospitalMdrxeioTSNBAUCZWS9155-81-68 09:20:00 Test Item Value Reference Range Interpretation Comments MPV (test code = MPV) 9.7 7.4-10.4 [place] 092486-12-24 09:20:00 Test Item Value Reference Range Interpretation Comments Platelet (test code = Platelet) 184 133-450 [facility] HospitalKufmtzxFJNDBUANBY8970-63-37 09:20:00 Test Item Value Reference Range Interpretation Comments RDW (test code = RDW) 15.9 11.5-14.5 [facility] HospitalNyqiooiQZGJNAIUAB5807-72-84 09:20:00 Test Item Value Reference Range Interpretation Comments MCV (test code = MCV) 79.3 80.0-98.0 [facility] HospitalUgseissIWCAUMNGXI1815-66-48 09:20:00 Test Item Value Reference Range Interpretation Comments MCHC (test code = MCHC) 33.0 32.0-36.0 [facility] HospitalVbgfghuQXAQCYRAOR4308-08-55 09:20:00 Test Item Value Reference Range Interpretation Comments MCH (test code = MCH) 26.2 pg 27.0-31.0 [facility] HospitalLxuregnWPVDSYKQNI6862-78-30 09:20:00 Test Item Value Reference Range Interpretation Comments Hct (test code = Hct) 29.4 36.0-48.0 [facility] HospitalDhpgypdPOOZQIFVBJ2998-10-36 09:20:00 Test Item Value Reference Range Interpretation Comments Hgb (test code = Hgb) 9.7 12.0-16.0 [facility] HospitalFgxtkckIOCDWSGBOV8604-56-67 09:20:00 Test Item Value Reference Range Interpretation Comments RBC (test code = RBC) 3.70 4.20-5.40 [place] 092486-12-24 09:20:00 Test Item Value Reference Range Interpretation Comments WBC (test code = WBC) 5.7 3.7-10.4 [facility] HospitalOdxymdhPWUOYUOMEE5360-03-66 09:20:00 Test Item Value Reference Range Interpretation Comments Basophils # (test code 0.1 See_Comment [Aut omated message] The = Basophils #) system which generated this result tra nsmitted reference range : <=0.2. The reference r leo was not used to int erpret this result as normal/abnormal . [facility] HospitalJwtwwcrSPYLRCYXOJ7067-75-94 09:20:00 Test Item Value Reference Range Interpretation Comments Lymphocytes # (test code = Lymphocytes 2.2 1.0-5.5 #) [facility] HospitalTpbytsyLGZZRUOHDT0526-80-37 09:20:00 Test Item Value Reference Range Interpretation Comments Eosinophils # (test code 0.5 See_Comment [A utomated message] The = Eosinophils #) system whic h generated this result tra nsmitted reference range : <=0.5. The reference r leo was not used to int erpret this result as normal/abnormal . [facility] HospitalWhkamvpBOLPMPYHGO1445-38-30 09:20:00 Test Item Value Reference Range Interpretation Comments Monocytes # (test code 0.5 See_Comment [Aut omated message] The = Monocytes #) system which generated this result tra nsmitted reference range : <=0.8. The reference r leo was not used to int erpret this result as normal/abnormal . [facility] HospitalIklehqxCDJGJEDUHC6985-30-60 09:20:00 Test Item Value Reference Range Interpretation Comments Basophils (test code = 1.1 See_Comment [Aut omated message] The Basophils) system which ge nerated this result tra nsmitted reference range : <=1.0. The reference r leo was not used to int erpret this result as normal/abnormal . [facility] HospitalPilhfekGZFGWZLFMS4513-40-20 09:20:00 Test Item Value Reference Range Interpretation Comments Segs-Bands # (test code = Segs-Bands #) 2.3 1.5-8.1 [facility] HospitalWtbuksfQZKKTNMJEA0525-05-33 09:20:00 Test Item Value Reference Range Interpretation Comments Eosinophils (test code = 9.5 See_Comment [A utomated message] The Eosinophils) system which ge nerated this result tra nsmitted reference range : <=4.0. The reference r leo was not used to int erpret this result as normal/abnormal . [facility] HospitalUgsznoyWRRJKDQWMB5949-51-51 09:20:00 Test Item Value Reference Range Interpretation Comments Monocytes (test code = Monocytes) 9.0 2.0-12.0 [facility] HospitalCtuhfulWWAAZSNXAC0855-56-61 09:20:00 Test Item Value Reference Range Interpretation Comments Lymphocytes (test code = Lymphocytes) 38.9 20.0-40.0 [facility] HospitalDnbvtoaHRUKZRJZXF2597-08-08 09:20:00 Test Item Value Reference Range Interpretation Comments Segs (test code = Segs) 41.5 45.0-75.0 [facility]2016-12-24 06:34:00 Test Item Value Reference Range Interpretation Comments Magnesium Lvl (test code = Magnesium 1.7 1.8-2.4 Lvl) [facility]2016-12-24 06:34:00 Test Item Value Reference Range Interpretation Comments Phosphorus (test code = Phosphorus) 4.2 2.5-4.5 [facility]HdworzjGUDEHBPDFYNF1787-35-12 06:34:00 Test Item Value Reference Range Interpretation Comments AGAP (test code = AGAP) 14.3 10.0-20.0 [facility] HospitalVtvqvkoQTKDLUKGPPBZ2706-71-77 06:34:00 Test Item Value Reference Range Interpretation Comments eGFR (test code = eGFR) 41 [facility] HospitalZpdxybyECNDMVWGXGGE1670-27-54 06:34:00 Test Item Value Reference Range Interpretation Comments Chloride Lvl (test code = Chloride Lvl) 103 95-109 [facility] HospitalHeuxfiqLDFLFHPTLADJ9750-05-87 06:34:00 Test Item Value Reference Range Interpretation Comments Calcium Lvl (test code = Calcium Lvl) 8.5 8.5-10.5 [facility] HospitalAeozzywUYULUBHUARLZ4201-02-69 06:34:00 Test Item Value Reference Range Interpretation Comments CO2 (test code = CO2) 32 24-32 [facility] HospitalUwxhkrfGJXMKWCEQZFY1226-48-24 06:34:00 Test Item Value Reference Range Interpretation Comments Glucose Lvl (test code = Glucose Lvl) 173 70-99 [facility] HospitalVskuiveURSPFOGRUGEJ5946-37-18 06:34:00 Test Item Value Reference Range Interpretation Comments BUN (test code = BUN) 37 7-22 [facility] HospitalKqpygzkXLYNEBUJHTAS9937-55-66 06:34:00 Test Item Value Reference Range Interpretation Comments Creatinine Lvl (test code = Creatinine 1.63 0.50-1.40 Lvl) [facility] HospitalShxrvozWCZZUJSQGYKN1326-02-06 06:34:00 Test Item Value Reference Range Interpretation Comments Potassium Lvl (test code = Potassium 4.3 3.5-5.1 Lvl) [facility] HospitalJrhhgzxVSJVEHAGWFDX1817-46-43 06:34:00 Test Item Value Reference Range Interpretation Comments Sodium Lvl (test code = Sodium Lvl) 145 135-145 [facility]2016-12-24 06:34:00 Test Item Value Reference Range Interpretation Comments Magnesium Lvl (test code = Magnesium 1.7 1.8-2.4 Lvl) [facility]2016-12-24 06:34:00 Test Item Value Reference Range Interpretation Comments Phosphorus (test code = Phosphorus) 4.2 2.5-4.5 [facility] HospitalDzobsntCKOXKELJPGVG0602-90-88 06:34:00 Test Item Value Reference Range Interpretation Comments AGAP (test code = AGAP) 14.3 10.0-20.0 [facility] HospitalHykuxvnAERYLCXBVWCY9551-14-74 06:34:00 Test Item Value Reference Range Interpretation Comments eGFR (test code = eGFR) 41 [facility] HospitalKvfglgzAXTDVFWIRTXO3706-19-21 06:34:00 Test Item Value Reference Range Interpretation Comments Chloride Lvl (test code = Chloride Lvl) 103 95-109 [facility] HospitalPnuroeqUGGKDQNEJNYS8432-57-16 06:34:00 Test Item Value Reference Range Interpretation Comments Calcium Lvl (test code = Calcium Lvl) 8.5 8.5-10.5 [facility] HospitalJzyoflzCBAHXRXGBXLJ8049-42-72 06:34:00 Test Item Value Reference Range Interpretation Comments CO2 (test code = CO2) 32 24-32 [facility] HospitalOzfjeokDLKJKNJKZPEX1300-08-86 06:34:00 Test Item Value Reference Range Interpretation Comments Glucose Lvl (test code = Glucose Lvl) 173 70-99 [facility] HospitalCmxokpzWJRYCSUXZYUV1109-63-03 06:34:00 Test Item Value Reference Range Interpretation Comments BUN (test code = BUN) 37 7-22 [facility] HospitalEbihdccUWSHTAQKRYUJ6494-29-40 06:34:00 Test Item Value Reference Range Interpretation Comments Creatinine Lvl (test code = Creatinine 1.63 0.50-1.40 Lvl) [facility] HospitalHkjemmpXQNQGWVAUCUE1076-75-85 06:34:00 Test Item Value Reference Range Interpretation Comments Potassium Lvl (test code = Potassium 4.3 3.5-5.1 Lvl) [facility]CvldznjIDQDLQDTNWTY6312-97-02 06:34:00 Test Item Value Reference Range Interpretation Comments Sodium Lvl (test code = Sodium Lvl) 145 135-145 [facility] RPYJJ0185-73-65 16:21:00 Test Item Value Reference Range Interpretation Comments Ammonia (test code = Ammonia) 48.0 [facility] GEGMY0715-21-09 16:21:00 Test Item Value Reference Range Interpretation Comments Ammonia (test code = Ammonia) 48.0 [facility]QxjlspmIMOOSSBWBZ7441-30-65 14:56:00 Test Item Value Reference Range Interpretation Comments IVETTE Interp (test code Pattern appears = IVETTE Interp) Nucleolar. [facility]FlwwvqkPWZFNPVVBM5642-00-57 14:56:00 Test Item Value Reference Range Interpretation Comments IVETTE Titer (test code = 1:40 *ABN*(06/11/16 IVETTE Titer) 8:56 AM) [facility] HospitalQwquhfePREEKSBMGD2972-10-32 14:56:00 Test Item Value Reference Range Interpretation Comments Hep Bs Ag (test code Negative *NA*(06/11/16 = Hep Bs Ag) 8:56 AM) [facility] HospitalXixuxctXZKBDDQTOI9872-27-92 14:56:00 Test Item Value Reference Range Interpretation Comments Hep C Ab (test code = Negative *NA*(06/11/16 Hep C Ab) 8:56 AM) [facility] HospitalYyocplbFRRHETTMEA1381-42-55 14:56:00 Test Item Value Reference Range Interpretation Comments Hep B Core IgM (test Negative *NA*(06/11/16 code = Hep B Core 8:56 AM) IgM) [facility] HospitalGhucslsLARXVMIJKE4188-76-31 14:56:00 Test Item Value Reference Range Interpretation Comments Hep A IgM (test code Negative *NA*(06/11/16 = Hep A IgM) 8:56 AM) [facility] HospitalBgnsppjHUGAPVBJIS3524-80-04 14:56:00 Test Item Value Reference Range Interpretation Comments HIV Ag/Ab 4th Gen Negative *NA*(06/11/16 (test code = HIV 8:56 AM) Ag/Ab 4th Gen) [facility]IkpnedvCOQFKHIKAM8602-36-43 14:56:00 Test Item Value Reference Range Interpretation Comments IVETTE (test code = IVETTE) Positive *ABN*(06/11/16 8:56 AM) [facility] HospitalAgeicywMZLTLKILQN3397-44-16 14:56:00 Test Item Value Reference Range Interpretation Comments IVETTE Interp (test code Pattern appears = IVETTE Interp) Nucleolar. [facility] HospitalXvilpygMALSHSOYNA3356-84-07 14:56:00 Test Item Value Reference Range Interpretation Comments IVETTE Titer (test code = 1:40 *ABN*(06/11/16 IVETTE Titer) 8:56 AM) [facility] HospitalBkgjncjZNMMDODTBL0471-79-57 14:56:00 Test Item Value Reference Range Interpretation Comments Hep Bs Ag (test code Negative *NA*(06/11/16 = Hep Bs Ag) 8:56 AM) [facility] HospitalStdfavcKMWGKOWZTQ1487-13-37 14:56:00 Test Item Value Reference Range Interpretation Comments Hep C Ab (test code = Negative *NA*(06/11/16 Hep C Ab) 8:56 AM) [facility] HospitalQupkeuqQWTCHVNDQT4924-05-79 14:56:00 Test Item Value Reference Range Interpretation Comments Hep B Core IgM (test Negative *NA*(06/11/16 code = Hep B Core 8:56 AM) IgM) [facility] HospitalCfxyzmnHPZVMMLSEV8345-16-73 14:56:00 Test Item Value Reference Range Interpretation Comments Hep A IgM (test code Negative *NA*(06/11/16 = Hep A IgM) 8:56 AM) [facility]IkczdyjSPORUJAQQT9435-12-31 14:56:00 Test Item Value Reference Range Interpretation Comments HIV Ag/Ab 4th Gen Negative *NA*(06/11/16 (test code = HIV 8:56 AM) Ag/Ab 4th Gen) [facility] HospitalMhjjsxaUURYBOLMFL2515-82-90 14:56:00 Test Item Value Reference Range Interpretation Comments IVETTE (test code = IVETTE) Positive *ABN*(06/11/16 8:56 AM) [facility]2016-12-22 10:42:00 Test Item Value Reference Range Interpretation Comments Bili Total (test code = Bili Total) 0.1 0.2-1.3 [facility]2016-12-22 10:42:00 Test Item Value Reference Range Interpretation Comments Total Protein (test code = Total 5.2 6.4-8.4 Protein) [facility]2016-12-22 10:42:00 Test Item Value Reference Range Interpretation Comments Albumin Lvl (test code = Albumin Lvl) 1.6 3.5-5.0 [facility]2016-12-22 10:42:00 Test Item Value Reference Range Interpretation Comments B/C Ratio (test code = B/C Ratio) 20 6-25 [facility]2016-12-22 10:42:00 Test Item Value Reference Range Interpretation Comments Globulin (test code = Globulin) 3.6 2.7-4.2 [facility]2016-12-22 10:42:00 Test Item Value Reference Range Interpretation Comments A/G Ratio (test code = A/G Ratio) 0.4 0.7-1.6 [facility]2016-12-22 10:42:00 Test Item Value Reference Range Interpretation Comments Alk Phos (test code = Alk Phos) 74 39-136 [facility]2016-12-22 10:42:00 Test Item Value Reference Range Interpretation Comments ALT (test code = ALT) 14 See_Comment [Auto mated message] The system which ge nerated this result transmit rohit reference range : <=65. The reference range was not used to interpr et this result as reji l/abnormal. [facility]2016-12-22 10:42:00 Test Item Value Reference Range Interpretation Comments AST (test code = AST) 13 See_Comment [Auto mated message] The system which ge nerated this result transmit rohit reference range : <=37. The reference range was not used to interpr et this result as reji l/abnormal. [facility] HospitalLfgqgliCIBZTUJWPJ0900-54-10 10:42:00 Test Item Value Reference Range Interpretation Comments INR (test code = INR) 1.06 0.85-1.17 [facility] HospitalVjesqffWZRVCNOXKK8218-31-72 10:42:00 Test Item Value Reference Range Interpretation Comments PT (test code = PT) 14.0 s 12.0-14.7 [facility] HospitalNgosougKZUBVWJBVR1740-48-65 10:42:00 Test Item Value Reference Range Interpretation Comments PTT (test code = PTT) 36.4 s 22.9-35.8 [facility] KLFHMFCXO4988-20-82 10:42:00 Test Item Value Reference Range Interpretation Comments Hgb A1C (test code = Hgb A1C) 10.5 [facility]2016-12-22 10:42:00 Test Item Value Reference Range Interpretation Comments Bili Total (test code = Bili Total) 0.1 0.2-1.3 [facility]2016-12-22 10:42:00 Test Item Value Reference Range Interpretation Comments Total Protein (test code = Total 5.2 6.4-8.4 Protein) [place] 782446-12-22 10:42:00 Test Item Value Reference Range Interpretation Comments Albumin Lvl (test code = Albumin Lvl) 1.6 3.5-5.0 [facility]2016-12-22 10:42:00 Test Item Value Reference Range Interpretation Comments B/C Ratio (test code = B/C Ratio) 20 6-25 [facility]2016-12-22 10:42:00 Test Item Value Reference Range Interpretation Comments Globulin (test code = Globulin) 3.6 2.7-4.2 [facility]2016-12-22 10:42:00 Test Item Value Reference Range Interpretation Comments A/G Ratio (test code = A/G Ratio) 0.4 0.7-1.6 [facility]2016-12-22 10:42:00 Test Item Value Reference Range Interpretation Comments Alk Phos (test code = Alk Phos) 74 39-136 [facility]2016-12-22 10:42:00 Test Item Value Reference Range Interpretation Comments ALT (test code = ALT) 14 See_Comment [Auto mated message] The system which ge nerated this result transmit rohit reference range : <=65. The reference range was not used to interpr et this result as reji l/abnormal. [place] 782446-12-22 10:42:00 Test Item Value Reference Range Interpretation Comments AST (test code = AST) 13 See_Comment [Auto mated message] The system which ge nerated this result transmit rohit reference range : <=37. The reference range was not used to interpr et this result as reji l/abnormal. [place] 092486-12-22 10:42:00 Test Item Value Reference Range Interpretation Comments INR (test code = INR) 1.06 0.85-1.17 [facility] HospitalHdzswviQQYLWMUPUR5338-11-54 10:42:00 Test Item Value Reference Range Interpretation Comments PT (test code = PT) 14.0 s 12.0-14.7 [facility]ressOgdzmdsQXFXFBTVMK5629-28-13 10:42:00 Test Item Value Reference Range Interpretation Comments PTT (test code = PTT) 36.4 s 22.9-35.8 [facility] NZQGOKQLA0295-49-58 10:42:00 Test Item Value Reference Range Interpretation Comments Hgb A1C (test code = Hgb A1C) 10.5 [facility] CypressannCAR3VRAC YDHAAER0894-42-58 02:08:00 Test Item Value Reference Range Interpretation Comments CK MB Index (test 1.8 See_Comment [Automate d message] The code = CK MB Index) system w [facility] generated this result transmit rohit reference range : <=2.5. The reference range was not used to interpr et this result as reji l/abnormal. [facility] CypressBlackLight Power DKUEHYH7888-46-66 02:08:00 Test Item Value Reference Range Interpretation Comments CK MB (test code = CK MB) 2.9 0.5-3.6 [facility] CypressSales BeachAdomo VEKNXNP4758-72-03 02:08:00 Test Item Value Reference Range Interpretation Comments Troponin-T (test code 0.061 See_Comment [Auto mated message] The = Troponin-T) system which g enerated this result transmit rohit reference range : <=0.100. The reference r leo was not used to interpr et this result as reji l/abnormal. [facility] [id number] 02:08:00 Test Item Value Reference Range Interpretation Comments Total CK (test code = Total CK) 159 12-191 [facility] [id number] 02:08:00 Test Item Value Reference Range Interpretation Comments Troponin-I (test code no gt See_Comment [Auto mated message] The = Troponin-I) system which g enerated this result transmit rhoit reference range : <=0.40. The reference r leo was not used to interpr et this result as reji l/abnormal. [facility] [id number] 02:08:00 Test Item Value Reference Range Interpretation Comments Bili Total (test code = Bili Total) 0.2 0.2-1.3 [place] [id number] 02:08:00 Test Item Value Reference Range Interpretation Comments Bili Direct (test code 0.1 See_Comment [Aut omated message] The = Bili Direct) system which generated this result tra nsmitted reference range : <=0.3. The reference r leo was not used to int erpret this result as reji l/abnormal. [place] [id number] 02:08:00 Test Item Value Reference Range Interpretation Comments Bili Indirect (test 0.1 See_Comment [Automa rohit message] The code = Bili Indirect) system which generated this result tra nsmitted reference range : <=1.0. The reference r leo was not used to int erpret this result as normal/abnormal . [place] [id number] 02:08:00 Test Item Value Reference Range Interpretation Comments Total Protein (test code = Total 5.7 6.4-8.4 Protein) [place] [id number] 02:08:00 Test Item Value Reference Range Interpretation Comments A/G Ratio (test code = A/G Ratio) 0.5 0.7-1.6 [address]12-22 02:08:00 Test Item Value Reference Range Interpretation Comments Albumin Lvl (test code = Albumin Lvl) 1.8 3.5-5.0 [place] [id number] 02:08:00 Test Item Value Reference Range Interpretation Comments Globulin (test code = Globulin) 3.9 2.7-4.2 [place] 782446-12-22 02:08:00 Test Item Value Reference Range Interpretation Comments Alk Phos (test code = Alk Phos) 99 39-136 [place] 782446-12-22 02:08:00 Test Item Value Reference Range Interpretation Comments AST (test code = AST) 21 See_Comment [Auto mated message] The system which ge nerated this result transmit rohit reference range : <=37. The reference range was not used to interpr et this result as reji l/abnormal. [place] [id number] 02:08:00 Test Item Value Reference Range Interpretation Comments ALT (test code = ALT) 17 See_Comment [Auto mated message] The system which ge nerated this result transmit rohit reference range : <=65. The reference range was not used to interpr et this result as reji l/abnormal. [facility] [id number] 02:08:00 Test Item Value Reference Range Interpretation Comments UDS Note (test code = See Note *NA*(06/10/16 UDS Note) 8:08 PM) [facility] [id number] 02:08:00 Test Item Value Reference Range Interpretation Comments U Propoxyph Scr (test Negative *NA*(06/10/16 code = U Propoxyph Scr) 8:08 PM) [facility] [id number] 02:08:00 Test Item Value Reference Range Interpretation Comments U Opiate Scr (test Negative *NA*(06/10/16 code = U Opiate Scr) 8:08 PM) [facility] [id number] 02:08:00 Test Item Value Reference Range Interpretation Comments U Methadone Scr (test Negative *NA*(06/10/16 code = U Methadone Scr) 8:08 PM) [facility] [id number] 02:08:00 Test Item Value Reference Range Interpretation Comments U Phencyc Scr (test Negative *NA*(06/10/16 code = U Phencyc Scr) 8:08 PM) [facility] [id number] 02:08:00 Test Item Value Reference Range Interpretation Comments U Cannab Scr (test Negative *NA*(06/10/16 code = U Cannab Scr) 8:08 PM) [facility] [id number] 02:08:00 Test Item Value Reference Range Interpretation Comments U Amph Scr (test code Negative *NA*(06/10/16 = U Amph Scr) 8:08 PM) [facility] [id number] 02:08:00 Test Item Value Reference Range Interpretation Comments U Kelly Scr (test code Negative *NA*(06/10/16 = U Kelly Scr) 8:08 PM) [facility] [id number] 02:08:00 Test Item Value Reference Range Interpretation Comments U Benzodia Scr (test Negative *NA*(06/10/16 code = U Benzodia Scr) 8:08 PM) [facility] [id number] 02:08:00 Test Item Value Reference Range Interpretation Comments U Cocaine Scr (test Negative *NA*(06/10/16 code = U Cocaine Scr) 8:08 PM) [id number] 02:08:00 Test Item Value Reference Range Interpretation Comments LDL (Calculated) (test code = LDL 75 (Calculated)) [facility] [id number] 02:08:00 Test Item Value Reference Range Interpretation Comments VLDL (test code = VLDL) 27 [facility] [id number] 02:08:00 Test Item Value Reference Range Interpretation Comments Chol (test code = Chol) 133 [facility] [id number] 02:08:00 Test Item Value Reference Range Interpretation Comments Trig (test code = Trig) 133 [facility] [id number] 02:08:00 Test Item Value Reference Range Interpretation Comments CHD Risk (test code = CHD Risk) 4.29 3.90-5.80 [facility] Arl[id number] 02:08:00 Test Item Value Reference Range Interpretation Comments HDL (test code = HDL) 31 [facility] AND [id number] 02:08:00 Test Item Value Reference Range Interpretation Comments UA Urobilinogen (test code = UA <=1.0 mg/dL 0.1-1.0 Urobilinogen) [facility] AND [id number] 02:08:00 Test Item Value Reference Range Interpretation Comments UA Ketones (test code = UA Negative mg/dL Ketones) [facility] AND [id number] 02:08:00 Test Item Value Reference Range Interpretation Comments UA Glucose (test code = UA Glucose) 300 mg/dL [facility] AND [id number] 02:08:00 Test Item Value Reference Range Interpretation Comments UA Protein (test code = UA >=300 mg/dL Protein) [facility] AND [id number] 02:08:00 Test Item Value Reference Range Interpretation Comments UA pH (test code = UA pH) 6.0 5.0-8.0 [facility] AND [id number] 02:08:00 Test Item Value Reference Range Interpretation Comments UA Nitrite (test code Negative (06/10/16 8:08 = UA Nitrite) PM) [facility] AND [id number] 02:08:00 Test Item Value Reference Range Interpretation Comments UA Blood (test code = Trace *ABN*(06/10/16 UA Blood) 8:08 PM) [facility] AND [id number] 02:08:00 Test Item Value Reference Range Interpretation Comments UA Bili (test code = Negative *NA*(06/10/16 UA Bili) 8:08 PM) [facility] AND [id number] 02:08:00 Test Item Value Reference Range Interpretation Comments UA Mucus (test code = UA Mucus) Few /LPF [facility] AND [id number] 02:08:00 Test Item Value Reference Range Interpretation Comments UA RBC (test code = 4 See_Comment [Automa rohit message] The UA RBC) system which ge nerated this result transmit rohit reference range : <=2. The reference range was not used to interpr et this result as reji l/abnormal. [facility] AND [id number] 02:08:00 Test Item Value Reference Range Interpretation Comments UA Sq Epi (test code = UA Sq Epi) Few /LPF [facility] AND [id number] 02:08:00 Test Item Value Reference Range Interpretation Comments UA WBC (test code = 5 See_Comment [Automa rohit message] The UA WBC) system which ge nerated this result transmit rohit reference range : <=5. The reference range was not used to interpr et this result as reji l/abnormal. [facility] AND [id number] 02:08:00 Test Item Value Reference Range Interpretation Comments UA Leuk Est (test code Small *ABN*(06/10/16 = UA Leuk Est) 8:08 PM) [facility] AND [id number] 02:08:00 Test Item Value Reference Range Interpretation Comments UA Hyal Cast (test 1 See_Comment [Automat ed message] The code = UA Hyal Cast) system which generated this result transmit rohit reference range : <=2. The reference range was not used to interpr et this result as reji l/abnormal. [facility] AND [id number] 02:08:00 Test Item Value Reference Range Interpretation Comments UA Spec Grav (test code = UA Spec Grav) 1.009 [facility] AND [id number] 02:08:00 Test Item Value Reference Range Interpretation Comments UA Color (test code = Yellow *NA*(06/10/16 UA Color) 8:08 PM) [facility] [id number] 02:08:00 Test Item Value Reference Range Interpretation Comments UA Turbidity (test code = Clear (06/10/16 8:08 UA Turbidity) PM) [facility] [id number] 02:08:00 Test Item Value Reference Range Interpretation Comments U Preg (test code = U Negative (06/10/16 8:08 Preg) PM) [facility] [id number] 02:08:00 Test Item Value Reference Range Interpretation Comments U Protein (test code = U Protein) 375.4 [facility] [id number] 02:08:00 Test Item Value Reference Range Interpretation Comments U Prot/Creat (test code = U Prot/Creat) 5.4 [facility] [id number] 02:08:00 Test Item Value Reference Range Interpretation Comments U Creatinine (test code = U Creatinine) 69.80 [facility] [id number] 02:08:00 Test Item Value Reference Range Interpretation Comments U Cannab Scr (test Negative *NA*(06/10/16 code = U Cannab Scr) 8:08 PM) [facility] [id number] 02:08:00 Test Item Value Reference Range Interpretation Comments U Amph Scr (test code Negative *NA*(06/10/16 = U Amph Scr) 8:08 PM) [facility] [id number] 02:08:00 Test Item Value Reference Range Interpretation Comments U Kelly Scr (test code Negative *NA*(06/10/16 = U Kelly Scr) 8:08 PM) [facility] [id number] 02:08:00 Test Item Value Reference Range Interpretation Comments U Benzodia Scr (test Negative *NA*(06/10/16 code = U Benzodia Scr) 8:08 PM) [facility] [id number] 02:08:00 Test Item Value Reference Range Interpretation Comments U Cocaine Scr (test Negative *NA*(06/10/16 code = U Cocaine Scr) 8:08 PM) [facility] [id number] 02:08:00 Test Item Value Reference Range Interpretation Comments LDL (Calculated) (test code = LDL 75 (Calculated)) [id number] 02:08:00 Test Item Value Reference Range Interpretation Comments VLDL (test code = VLDL) 27 [facility] [id number] 02:08:00 Test Item Value Reference Range Interpretation Comments Chol (test code = Chol) 133 [facility] [id number] 02:08:00 Test Item Value Reference Range Interpretation Comments Trig (test code = Trig) 133 [facility] ArlingtonCckckqwKFAANJ3248-18-72 02:08:00 Test Item Value Reference Range Interpretation Comments CHD Risk (test code = CHD Risk) 4.29 3.90-5.80 [facility] Arl[id number] 02:08:00 Test Item Value Reference Range Interpretation Comments HDL (test code = HDL) 31 [facility] AND [id number] 02:08:00 Test Item Value Reference Range Interpretation Comments UA Urobilinogen (test code = UA <=1.0 mg/dL 0.1-1.0 Urobilinogen) [facility] AND [id number] 02:08:00 Test Item Value Reference Range Interpretation Comments UA Ketones (test code = UA Negative mg/dL Ketones) [facility] AND [id number] 02:08:00 Test Item Value Reference Range Interpretation Comments UA Glucose (test code = UA Glucose) 300 mg/dL [facility] AND [id number] 02:08:00 Test Item Value Reference Range Interpretation Comments UA Protein (test code = UA >=300 mg/dL Protein) [facility] AND [id number] 02:08:00 Test Item Value Reference Range Interpretation Comments UA pH (test code = UA pH) 6.0 5.0-8.0 [facility] AND [id number] 02:08:00 Test Item Value Reference Range Interpretation Comments UA Nitrite (test code Negative (06/10/16 8:08 = UA Nitrite) PM) [facility] AND [id number] 02:08:00 Test Item Value Reference Range Interpretation Comments UA Blood (test code = Trace *ABN*(06/10/16 UA Blood) 8:08 PM) [facility] AND [id number] 02:08:00 Test Item Value Reference Range Interpretation Comments UA Bili (test code = Negative *NA*(06/10/16 UA Bili) 8:08 PM) [facility] [id number] 02:08:00 Test Item Value Reference Range Interpretation Comments UA Mucus (test code = UA Mucus) Few /LPF [facility] [id number] 02:08:00 Test Item Value Reference Range Interpretation Comments UA RBC (test code = 4 See_Comment [Automa rohit message] The UA RBC) system which ge nerated this result transmit rohit reference range : <=2. The reference range was not used to interpr et this result as reji l/abnormal. [facility] [id number] 02:08:00 Test Item Value Reference Range Interpretation Comments UA Sq Epi (test code = UA Sq Epi) Few /LPF [facility] [id number] 02:08:00 Test Item Value Reference Range Interpretation Comments UA WBC (test code = 5 See_Comment [Automa rohit message] The UA WBC) system which ge nerated this result transmit rohit reference range : <=5. The reference range was not used to interpr et this result as reji l/abnormal. [facility] [id number] 02:08:00 Test Item Value Reference Range Interpretation Comments UA Leuk Est (test code Small *ABN*(06/10/16 = UA Leuk Est) 8:08 PM) [facility] [id number] 02:08:00 Test Item Value Reference Range Interpretation Comments UA Hyal Cast (test 1 See_Comment [Automat ed message] The code = UA Hyal Cast) system which generated this result transmit rohit reference range : <=2. The reference range was not used to interpr et this result as reji l/abnormal. [facility] AND [id number] 02:08:00 Test Item Value Reference Range Interpretation Comments UA Spec Grav (test code = UA Spec Grav) 1.009 [facility] [id number] 02:08:00 Test Item Value Reference Range Interpretation Comments UA Color (test code = Yellow *NA*(06/10/16 UA Color) 8:08 PM) [facility] [id number] 02:08:00 Test Item Value Reference Range Interpretation Comments UA Turbidity (test code = Clear (06/10/16 8:08 UA Turbidity) PM) [facility] [id number] 02:08:00 Test Item Value Reference Range Interpretation Comments U Preg (test code = U Negative (06/10/16 8:08 Preg) PM) [facility] [id number] 02:08:00 Test Item Value Reference Range Interpretation Comments U Protein (test code = U Protein) 375.4 [facility] [id number] 02:08:00 Test Item Value Reference Range Interpretation Comments U Prot/Creat (test code = U Prot/Creat) 5.4 [facility] [id number] 02:08:00 Test Item Value Reference Range Interpretation Comments U Creatinine (test code = U Creatinine) 69.80 [facility] [id number] 02:08:00 Test Item Value Reference Range Interpretation Comments CK MB Index (test 1.8 See_Comment [Automate d message] The code = CK MB Index) system w [facility] generated this result transmit rohit reference range : <=2.5. The reference range was not used to interpr et this result as reji l/abnormal. [facility] VinMisohoni [id number] 02:08:00 Test Item Value Reference Range Interpretation Comments CK MB (test code = CK MB) 2.9 0.5-3.6 [facility] [id number] 02:08:00 Test Item Value Reference Range Interpretation Comments Troponin-T (test code 0.061 See_Comment [Auto mated message] The = Troponin-T) system which g enerated this result transmit rohit reference range : <=0.100. The reference r leo was not used to interpr et this result as reji l/abnormal. [facility] [id number] 02:08:00 Test Item Value Reference Range Interpretation Comments Total CK (test code = Total CK) 159 12-191 [facility] [id number] 02:08:00 Test Item Value Reference Range Interpretation Comments Troponin-I (test code no gt See_Comment [Auto mated message] The = Troponin-I) system which g enerated this result transmit rohit reference range : <=0.40. The reference r leo was not used to interpr et this result as reji l/abnormal. [facility]2016-12-22 02:08:00 Test Item Value Reference Range Interpretation Comments Bili Total (test code = Bili Total) 0.2 0.2-1.3 [place] [id number] 02:08:00 Test Item Value Reference Range Interpretation Comments Bili Direct (test code 0.1 See_Comment [Aut omated message] The = Bili Direct) system which generated this result tra nsmitted reference range : <=0.3. The reference r leo was not used to int erpret this result as reji l/abnormal. [place] [id number] 02:08:00 Test Item Value Reference Range Interpretation Comments Bili Indirect (test 0.1 See_Comment [Automa rohit message] The code = Bili Indirect) system which generated this result tra nsmitted reference range : <=1.0. The reference r leo was not used to int erpret this result as normal/abnormal . [facility]2016-12-22 02:08:00 Test Item Value Reference Range Interpretation Comments Total Protein (test code = Total 5.7 6.4-8.4 Protein) [facility]2016-12-22 02:08:00 Test Item Value Reference Range Interpretation Comments A/G Ratio (test code = A/G Ratio) 0.5 0.7-1.6 [place] [id number] 02:08:00 Test Item Value Reference Range Interpretation Comments Albumin Lvl (test code = Albumin Lvl) 1.8 3.5-5.0 [place] [id number] 02:08:00 Test Item Value Reference Range Interpretation Comments Globulin (test code = Globulin) 3.9 2.7-4.2 [place] [id number] 02:08:00 Test Item Value Reference Range Interpretation Comments Alk Phos (test code = Alk Phos) 99 39-136 [facility]2016-12-22 02:08:00 Test Item Value Reference Range Interpretation Comments AST (test code = AST) 21 See_Comment [Auto mated message] The system which ge nerated this result transmit rohit reference range : <=37. The reference range was not used to interpr et this result as reji l/abnormal. [facility] [id number] 02:08:00 Test Item Value Reference Range Interpretation Comments ALT (test code = ALT) 17 See_Comment [Auto mated message] The system which ge nerated this result transmit rohit reference range : <=65. The reference range was not used to interpr et this result as reji l/abnormal. [facility] [id number] 02:08:00 Test Item Value Reference Range Interpretation Comments UDS Note (test code = See Note *NA*(06/10/16 UDS Note) 8:08 PM) [facility] [id number] 02:08:00 Test Item Value Reference Range Interpretation Comments U Propoxyph Scr (test Negative *NA*(06/10/16 code = U Propoxyph Scr) 8:08 PM) [facility] [id number] 02:08:00 Test Item Value Reference Range Interpretation Comments U Opiate Scr (test Negative *NA*(06/10/16 code = U Opiate Scr) 8:08 PM) [facility] [id number] 02:08:00 Test Item Value Reference Range Interpretation Comments U Methadone Scr (test Negative *NA*(06/10/16 code = U Methadone Scr) 8:08 PM) [facility] [id number] 02:08:00 Test Item Value Reference Range Interpretation Comments U Phencyc Scr (test Negative *NA*(06/10/16 code = U Phencyc Scr) 8:08 PM) [facility] [id number] 16:53:00 Test Item Value Reference Range Interpretation Comments BNP (test code = BNP) 1135 [facility] [id number] 16:53:00 Test Item Value Reference Range Interpretation Comments Troponin-I (test code no gt See_Comment [Auto mated message] The = Troponin-I) system which g enerated this result transmit rohit reference range : <=0.40. The reference r leo was not used to interpr et this result as reji l/abnormal. [facility] [id number] 16:53:00 Test Item Value Reference Range Interpretation Comments BNP (test code = BNP) 1135 [facility] [id number] 16:53:00 Test Item Value Reference Range Interpretation Comments Troponin-I (test code no gt See_Comment [Auto mated message] The = Troponin-I) system which g enerated this result transmit rohit reference range : <=0.40. The reference r leo was not used to interpr et this result as reji l/abnormal. [facility] [id number] 13:02:00 Test Item Value Reference Range Interpretation Comments Lactic Acid WB (test code = Lactic Acid 0.9 0.5-2.2 WB) [facility]2015-01-06 13:02:00 Test Item Value Reference Range Interpretation Comments Lactic Acid WB (test code = Lactic Acid 0.9 0.5-2.2 WB) [id number] 12:29:44 Test Item Value Reference Range Interpretation Comments Valproic Acid Lvl (test code = Valproic 10 50-100 Acid Lvl) [facility] [id number] 12:29:44 Test Item Value Reference Range Interpretation Comments Valproic Acid Lvl (test code = Valproic 10 50-100 Acid Lvl) [place] [id number] 11:21:27 Test Item Value Reference Range Interpretation Comments hCG Tot (test code = hCG Tot) 1 [place] [id number] 11:21:27 Test Item Value Reference Range Interpretation Comments hCG Tot (test code = hCG Tot) 1 [facility]2015-01-06 11:21:00 Test Item Value Reference Range Interpretation Comments Albumin Lvl (test code = Albumin Lvl) 3.2 3.5-5.0 [facility]2015-01-06 11:21:00 Test Item Value Reference Range Interpretation Comments Total Protein (test code = Total 6.6 6.4-8.4 Protein) [facility]2015-01-06 11:21:00 Test Item Value Reference Range Interpretation Comments Bili Total (test code = Bili Total) 0.6 0.2-1.3 [facility]2015-01-06 11:21:00 Test Item Value Reference Range Interpretation Comments Alk Phos (test code = Alk Phos) 59 39-136 [facility]2015-01-06 11:21:00 Test Item Value Reference Range Interpretation Comments AST (test code = AST) 11 See_Comment [Auto mated message] The system which ge nerated this result transmit rohit reference range : <=37. The reference range was not used to interpr et this result as reji l/abnormal. [facility]2015-01-06 11:21:00 Test Item Value Reference Range Interpretation Comments ALT (test code = ALT) 17 See_Comment [Auto mated message] The system which ge nerated this result transmit rohit reference range : <=65. The reference range was not used to interpr et this result as reji l/abnormal. [facility]2015-01-06 11:21:00 Test Item Value Reference Range Interpretation Comments eGFR (test code = eGFR) 99 [facility]2015-01-06 11:21:00 Test Item Value Reference Range Interpretation Comments Glucose Lvl (test code = Glucose Lvl) 314 70-99 [facility]2015-01-06 11:21:00 Test Item Value Reference Range Interpretation Comments Potassium Lvl (test code = Potassium 3.4 3.5-5.1 Lvl) [facility]2015-01-06 11:21:00 Test Item Value Reference Range Interpretation Comments BUN (test code = BUN) 11 7-22 [facility]2015-01-06 11:21:00 Test Item Value Reference Range Interpretation Comments Creatinine Lvl (test code = Creatinine 0.8 0.5-1.4 [address]) [facility]2015-01-06 11:21:00 Test Item Value Reference Range Interpretation Comments Sodium Lvl (test code = Sodium Lvl) 134 135-145 [facility]2015-01-06 11:21:00 Test Item Value Reference Range Interpretation Comments Chloride Lvl (test code = Chloride Lvl) 94 95-109 [facility]2015-01-06 11:21:00 Test Item Value Reference Range Interpretation Comments Calcium Lvl (test code = Calcium Lvl) 9.1 8.5-10.5 [facility]2015-01-06 11:21:00 Test Item Value Reference Range Interpretation Comments CO2 (test code = CO2) 24 24-32 [facility]2015-01-06 11:21:00 Test Item Value Reference Range Interpretation Comments A/G Ratio (test code = A/G Ratio) 0.9 0.7-1.6 [facility]2015-01-06 11:21:00 Test Item Value Reference Range Interpretation Comments Globulin (test code = Globulin) 3.4 2.0-4.0 [facility]2015-01-06 11:21:00 Test Item Value Reference Range Interpretation Comments B/C Ratio (test code = B/C Ratio) 14 6-25 [facility]2015-01-06 11:21:00 Test Item Value Reference Range Interpretation Comments AGAP (test code = AGAP) 19.4 10.0-20.0 [facility]2015-01-06 11:21:00 Test Item Value Reference Range Interpretation Comments Lipase Lvl (test code = Lipase Lvl) 81 73-393 [facility]IbtvhewQFXQQDMXHB7327-06-73 11:21:00 Test Item Value Reference Range Interpretation Comments Large Plt (test code = Large Plt) Slight [facility] HospitalJbvumsrMNFOIHKZUK2388-24-39 11:21:00 Test Item Value Reference Range Interpretation Comments Basophils # (test code 0.0 See_Comment [Aut omated message] The = Basophils #) system which generated this result tra nsmitted reference range : <=0.2. The reference r leo was not used to int erpret this result as normal/abnormal . [facility] HospitalSlsosdnVMDNGPIRPC3092-38-82 11:21:00 Test Item Value Reference Range Interpretation Comments Anisocyte (test code = 1+ *ABN*(06/26/14 5:21 Anisocyte) AM) [facility] HospitalIdlrpkoMMEDNMWHBV1670-66-53 11:21:00 Test Item Value Reference Range Interpretation Comments Monocytes # (test code 0.6 See_Comment [Aut omated message] The = Monocytes #) system which generated this result tra nsmitted reference range : <=0.8. The reference r leo was not used to int erpret this result as normal/abnormal . [facility] HospitalHhhmbzjPROIDEFUIK9200-14-91 11:21:00 Test Item Value Reference Range Interpretation Comments Eosinophils # (test code 0.1 See_Comment [A utomated message] The = Eosinophils #) system whic h generated this result tra nsmitted reference range : <=0.5. The reference r leo was not used to int erpret this result as normal/abnormal . [facility] HospitalUnsmkiwPJUHIJCCVE0447-32-94 11:21:00 Test Item Value Reference Range Interpretation Comments Lymphocytes # (test code = Lymphocytes 2.5 1.0-5.5 #) [facility] HospitalKjztlqfRDIBLFTKRM5324-12-84 11:21:00 Test Item Value Reference Range Interpretation Comments Segs (test code = Segs) 63.3 45.0-75.0 [facility] HospitalTsrivbvQQRRJUXKXF5376-19-34 11:21:00 Test Item Value Reference Range Interpretation Comments Segs-Bands # (test code = Segs-Bands #) 5.6 1.5-8.1 [facility] HospitalCglzhvsLLWZPSMGND4466-15-98 11:21:00 Test Item Value Reference Range Interpretation Comments Basophils (test code = 0.0 See_Comment [Aut omated message] The Basophils) system which ge nerated this result tra nsmitted reference range : <=1.0. The reference r leo was not used to int erpret this result as normal/abnormal . [facility] HospitalEbzfkhgYZIZVFWDLE8890-34-15 11:21:00 Test Item Value Reference Range Interpretation Comments Eosinophils (test code = 0.9 See_Comment [A utomated message] The Eosinophils) system which ge nerated this result tra nsmitted reference range : <=4.0. The reference r leo was not used to int erpret this result as normal/abnormal . [facility] HospitalRjbdbcjNBSCAQKKIM3794-96-99 11:21:00 Test Item Value Reference Range Interpretation Comments Monocytes (test code = Monocytes) 7.0 2.0-12.0 [facility] HospitalHiaccedAARJGOGXLI0365-64-67 11:21:00 Test Item Value Reference Range Interpretation Comments Lymphocytes (test code = Lymphocytes) 28.8 20.0-40.0 [facility] HospitalEmkyhulGHHXSDQSTP2932-12-63 11:21:00 Test Item Value Reference Range Interpretation Comments WBC (test code = WBC) 8.8 3.7-10.4 [facility] HospitalUkhkqfrTFFTVBCCYB2396-81-17 11:21:00 Test Item Value Reference Range Interpretation Comments RBC (test code = RBC) 5.19 4.20-5.40 [facility] HospitalVykiqatVMTCTFDYES5723-45-37 11:21:00 Test Item Value Reference Range Interpretation Comments Hgb (test code = Hgb) 14.4 12.0-16.0 [facility] HospitalDwemlvbTVCYYUVNGP5584-04-35 11:21:00 Test Item Value Reference Range Interpretation Comments Hct (test code = Hct) 43.1 36.0-48.0 [facility] HospitalEjdcptdYJCYXYAHKU0474-00-06 11:21:00 Test Item Value Reference Range Interpretation Comments MCV (test code = MCV) 83.1 80.0-98.0 [facility] HospitalXxjkkklSGCFIDFCPR9591-18-76 11:21:00 Test Item Value Reference Range Interpretation Comments MCH (test code = MCH) 27.8 pg 27.0-31.0 [facility] HospitalNylsckkXYELELUBJP3426-15-76 11:21:00 Test Item Value Reference Range Interpretation Comments RDW (test code = RDW) 13.1 11.5-14.5 [facility] HospitalPukecdjOQHPDIEOWU1563-04-68 11:21:00 Test Item Value Reference Range Interpretation Comments MCHC (test code = MCHC) 33.5 32.0-36.0 [facility] HospitalFtpcfltFQAASUOTAY2198-75-16 11:21:00 Test Item Value Reference Range Interpretation Comments Platelet (test code = Platelet) 201 133-450 [facility] HospitalZjqisefTXGTITULOX3488-38-20 11:21:00 Test Item Value Reference Range Interpretation Comments MPV (test code = MPV) 10.4 7.4-10.4 [facility]2015-01-06 11:21:00 Test Item Value Reference Range Interpretation Comments Albumin Lvl (test code = Albumin Lvl) 3.2 3.5-5.0 [facility]2015-01-06 11:21:00 Test Item Value Reference Range Interpretation Comments Total Protein (test code = Total 6.6 6.4-8.4 Protein) [facility]2015-01-06 11:21:00 Test Item Value Reference Range Interpretation Comments Bili Total (test code = Bili Total) 0.6 0.2-1.3 [facility]2015-01-06 11:21:00 Test Item Value Reference Range Interpretation Comments Alk Phos (test code = Alk Phos) 59 39-136 [facility]2015-01-06 11:21:00 Test Item Value Reference Range Interpretation Comments AST (test code = AST) 11 See_Comment [Auto mated message] The system which ge nerated this result transmit rohit reference range : <=37. The reference range was not used to interpr et this result as reji l/abnormal. [facility]2015-01-06 11:21:00 Test Item Value Reference Range Interpretation Comments ALT (test code = ALT) 17 See_Comment [Auto mated message] The system which ge nerated this result transmit rohit reference range : <=65. The reference range was not used to interpr et this result as reji l/abnormal. [facility]2015-01-06 11:21:00 Test Item Value Reference Range Interpretation Comments eGFR (test code = eGFR) 99 [facility]2015-01-06 11:21:00 Test Item Value Reference Range Interpretation Comments Glucose Lvl (test code = Glucose Lvl) 314 70-99 [facility]2015-01-06 11:21:00 Test Item Value Reference Range Interpretation Comments Potassium Lvl (test code = Potassium 3.4 3.5-5.1 Lvl) [facility]2015-01-06 11:21:00 Test Item Value Reference Range Interpretation Comments BUN (test code = BUN) 11 7-22 [facility]2015-01-06 11:21:00 Test Item Value Reference Range Interpretation Comments Creatinine Lvl (test code = Creatinine 0.8 0.5-1.4 Lvl) [facility]2015-01-06 11:21:00 Test Item Value Reference Range Interpretation Comments Sodium Lvl (test code = Sodium Lvl) 134 135-145 [facility]2015-01-06 11:21:00 Test Item Value Reference Range Interpretation Comments Chloride Lvl (test code = Chloride Lvl) 94 95-109 [facility]2015-01-06 11:21:00 Test Item Value Reference Range Interpretation Comments Calcium Lvl (test code = Calcium Lvl) 9.1 8.5-10.5 [facility]2015-01-06 11:21:00 Test Item Value Reference Range Interpretation Comments CO2 (test code = CO2) 24 24-32 [facility]2015-01-06 11:21:00 Test Item Value Reference Range Interpretation Comments A/G Ratio (test code = A/G Ratio) 0.9 0.7-1.6 [facility]2015-01-06 11:21:00 Test Item Value Reference Range Interpretation Comments Globulin (test code = Globulin) 3.4 2.0-4.0 [facility]2015-01-06 11:21:00 Test Item Value Reference Range Interpretation Comments B/C Ratio (test code = B/C Ratio) 14 6-25 [facility]2015-01-06 11:21:00 Test Item Value Reference Range Interpretation Comments AGAP (test code = AGAP) 19.4 10.0-20.0 [facility]2015-01-06 11:21:00 Test Item Value Reference Range Interpretation Comments Lipase Lvl (test code = Lipase Lvl) 81 73-393 [facility] HospitalMlvlwcaFPMTLQBCRI0184-86-43 11:21:00 Test Item Value Reference Range Interpretation Comments Large Plt (test code = Large Plt) Slight [facility] HospitalYolcasbRAPAOCSYLI9030-77-91 11:21:00 Test Item Value Reference Range Interpretation Comments Basophils # (test code 0.0 See_Comment [Aut omated message] The = Basophils #) system which generated this result tra nsmitted reference range : <=0.2. The reference r leo was not used to int erpret this result as normal/abnormal . [facility] HospitalTyijexjBAVNWYCCLG3187-02-47 11:21:00 Test Item Value Reference Range Interpretation Comments Anisocyte (test code = 1+ *ABN*(06/26/14 5:21 Anisocyte) AM) [facility] HospitalUgqdelfLFVHEUBOIO1031-79-23 11:21:00 Test Item Value Reference Range Interpretation Comments Monocytes # (test code 0.6 See_Comment [Aut omated message] The = Monocytes #) system which generated this result tra nsmitted reference range : <=0.8. The reference r leo was not used to int erpret this result as normal/abnormal . [facility] HospitalMeioughVOUVVBCODV6255-82-76 11:21:00 Test Item Value Reference Range Interpretation Comments Eosinophils # (test code 0.1 See_Comment [A utomated message] The = Eosinophils #) system whic h generated this result tra nsmitted reference range : <=0.5. The reference r leo was not used to int erpret this result as normal/abnormal . [facility] HospitalGrlmhjdOAAOFWMXMG8333-63-43 11:21:00 Test Item Value Reference Range Interpretation Comments Lymphocytes # (test code = Lymphocytes 2.5 1.0-5.5 #) [facility] HospitalFkfjccvMDHRUPXFAS6285-76-13 11:21:00 Test Item Value Reference Range Interpretation Comments Segs (test code = Segs) 63.3 45.0-75.0 [facility] HospitalCmfrwbaDIVGBXSHBB5627-27-00 11:21:00 Test Item Value Reference Range Interpretation Comments Segs-Bands # (test code = Segs-Bands #) 5.6 1.5-8.1 [facility] HospitalMxsnkxpWSPMHRHVOP0007-21-77 11:21:00 Test Item Value Reference Range Interpretation Comments Basophils (test code = 0.0 See_Comment [Aut omated message] The Basophils) system which ge nerated this result tra nsmitted reference range : <=1.0. The reference r leo was not used to int erpret this result as normal/abnormal . [facility] HospitalAcjhwjdPWGKQFJTCX3887-26-66 11:21:00 Test Item Value Reference Range Interpretation Comments Eosinophils (test code = 0.9 See_Comment [A utomated message] The Eosinophils) system which ge nerated this result tra nsmitted reference range : <=4.0. The reference r leo was not used to int erpret this result as normal/abnormal . [facility] HospitalFrsmpnuWJDQTWFNFT2559-05-87 11:21:00 Test Item Value Reference Range Interpretation Comments Monocytes (test code = Monocytes) 7.0 2.0-12.0 [facility] HospitalOttpotnNTGKKHYJMR3702-59-13 11:21:00 Test Item Value Reference Range Interpretation Comments Lymphocytes (test code = Lymphocytes) 28.8 20.0-40.0 [facility] HospitalAyuxqbhUEZFFAXJIM6213-93-23 11:21:00 Test Item Value Reference Range Interpretation Comments WBC (test code = WBC) 8.8 3.7-10.4 [facility] HospitalEqwbfacMVBYBIITDW3001-94-28 11:21:00 Test Item Value Reference Range Interpretation Comments RBC (test code = RBC) 5.19 4.20-5.40 [facility] HospitalOgjglldKIKNCSIKJB6324-97-98 11:21:00 Test Item Value Reference Range Interpretation Comments Hgb (test code = Hgb) 14.4 12.0-16.0 [facility] HospitalNsvgifmYHHBZDJUPR4645-12-50 11:21:00 Test Item Value Reference Range Interpretation Comments Hct (test code = Hct) 43.1 36.0-48.0 [facility] HospitalWqkriasKDJIJZYXPV4096-31-42 11:21:00 Test Item Value Reference Range Interpretation Comments MCV (test code = MCV) 83.1 80.0-98.0 [facility] HospitalLdgegbgKSBTAVIDVY7860-65-91 11:21:00 Test Item Value Reference Range Interpretation Comments MCH (test code = MCH) 27.8 pg 27.0-31.0 [facility] HospitalXxxoqeuRGBYOVOGWA0964-87-96 11:21:00 Test Item Value Reference Range Interpretation Comments RDW (test code = RDW) 13.1 11.5-14.5 [facility] HospitalBskiesmFJCWJGEIIF8481-28-38 11:21:00 Test Item Value Reference Range Interpretation Comments MCHC (test code = MCHC) 33.5 32.0-36.0 [facility] HospitalPxvrwgeHZHQVJZQRC7915-74-64 11:21:00 Test Item Value Reference Range Interpretation Comments Platelet (test code = Platelet) 201 133-450 [facility] HospitalXkejpdbGZMZEXYKYR3352-84-91 11:21:00 Test Item Value Reference Range Interpretation Comments MPV (test code = MPV) 10.4 7.4-10.4 [facility]JllwxhuMQDYRNQNQG7557-28-72 04:48:55 Test Item Value Reference Range Interpretation Comments UA [place] Yeast (test code = UA Occasional /HPF A [place] Yeast) [facility] ArlingtonIvdmonzKWNMYZIOIW9146-63-40 04:48:55 Test Item Value Reference Range Interpretation Comments UA Mucus (test code = UA Mucus) Few /LPF N [facility] ArlingtonJayfyhtWCEDSERBUB9573-05-38 04:48:55 Test Item Value Reference Range Interpretation Comments UA Sq Epi (test code = UA Sq Moderate /LPF A Epi) [facility] ArlingtonIrguygmLLVKXROQKT7896-74-78 04:48:55 Test Item Value Reference Range Interpretation Comments Micro? (test code = Performed (04/14/2013 N Micro?) 23:48:55) [facility] ArlingtonLjxgctxXQQHHIVLYY9646-66-60 04:48:55 Test Item Value Reference Range Interpretation Comments UA WBC (test code = UA WBC) 0-2 /HPF N [facility] ArlingtonEkofjjuXZXAYZEUBC8970-14-29 04:48:55 Test Item Value Reference Range Interpretation Comments UA Bacteria (test code = UA Occasional /HPF N Bacteria) [facility] ArlingtonZoqbkziMQXWMBOKMG2764-58-60 04:48:55 Test Item Value Reference Range Interpretation Comments UA Glucose (test code = UA Glucose) 500 mg/dL A [facility] ArlingtonXesgxtuYDENVKCLAD0715-83-26 04:48:55 Test Item Value Reference Range Interpretation Comments UA Bili (test code = Negative *NA*(04/14/2013 UA Bili) 23:48:55) [facility] ArlingtonUkcvgnhTWHXMBLRYJ6445-49-11 04:48:55 Test Item Value Reference Range Interpretation Comments UA Ketones (test code = Trace A UA Ketones) *ABN*(04/14/2013 23:48:55) [facility] ArlingtonUohjfepTHDAERZHVT6454-00-73 04:48:55 Test Item Value Reference Range Interpretation Comments UA Blood (test code = Negative (04/14/2013 N UA Blood) 23:48:55) [facility] ArlingtonVvzdiwyRJSPRHTCHL5542-87-04 04:48:55 Test Item Value Reference Range Interpretation Comments UA Urobilinogen (test code = UA 0.2 0.1-1.0 N Urobilinogen) [facility] ArlingtonBfkzgzvPQBWFVWOJD2841-12-54 04:48:55 Test Item Value Reference Range Interpretation Comments UA Nitrite (test code Negative (04/14/2013 N = UA Nitrite) 23:48:55) [facility] ArlingtonBcqvrdzXNGPKJWBGW5462-82-53 04:48:55 Test Item Value Reference Range Interpretation Comments UA Leuk Est (test Negative (04/14/2013 N code = UA Leuk Est) 23:48:55) [facility] ArlingtonKqycvtrDXUHZQYHTT9178-04-64 04:48:55 Test Item Value Reference Range Interpretation Comments UA Turbidity (test code = Clear (04/14/2013 N UA Turbidity) 23:48:55) [facility] ArlingtonJhvuwsbSOJOVEDZCS1041-14-64 04:48:55 Test Item Value Reference Range Interpretation Comments UA Color (test code = Yellow *NA*(04/14/2013 UA Color) 23:48:55) [facility] ArlingtonMpcvwlkHGPJJCQBKM0434-15-88 04:48:55 Test Item Value Reference Range Interpretation Comments UA pH (test code = UA pH) 7.0 1 5.0-8.0 N [facility] ArlingtonNzcefzkVXFEFHIIJD1644-65-92 04:48:55 Test Item Value Reference Range Interpretation Comments UA Spec Grav (test code = UA Spec 1.025 1 N Grav) [facility] ArlingtonBkibvzsUCCCXLUBVB6953-39-81 04:48:55 Test Item Value Reference Range Interpretation Comments UA Protein (test code = Trace A UA Protein) *ABN*(04/14/2013 23:48:55) [facility] ArlingtonMigyjygZECPZNUPBG1281-61-86 04:48:55 Test Item Value Reference Range Interpretation Comments UA [place] Yeast (test code = UA Occasional /HPF A [place] Yeast) [facility] ArlingtonKiegouqADEWXHSEKX1073-74-08 04:48:55 Test Item Value Reference Range Interpretation Comments UA Mucus (test code = UA Mucus) Few /LPF N [facility] ArlingtonYqbxtpzIWYBDAQAUV5378-59-59 04:48:55 Test Item Value Reference Range Interpretation Comments UA Sq Epi (test code = UA Sq Moderate /LPF A Epi) [facility] ArlingtonQukmqcmYHLXZCBMKY8410-44-49 04:48:55 Test Item Value Reference Range Interpretation Comments Micro? (test code = Performed (04/14/2013 N Micro?) 23:48:55) [facility] ArlingtonCnuodvbJFNSJEDGGM7902-05-45 04:48:55 Test Item Value Reference Range Interpretation Comments UA WBC (test code = UA WBC) 0-2 /HPF N [facility] ArlingtonJzlvenhSZQSILYHJR9136-80-18 04:48:55 Test Item Value Reference Range Interpretation Comments UA Bacteria (test code = UA Occasional /HPF N Bacteria) [facility] ArlingtonThozahiWJWXZWENSQ2715-16-57 04:48:55 Test Item Value Reference Range Interpretation Comments UA Glucose (test code = UA Glucose) 500 mg/dL A [facility] ArlingtonTjpynkfWYPPNPIMEU1296-78-16 04:48:55 Test Item Value Reference Range Interpretation Comments UA Bili (test code = Negative *NA*(04/14/2013 UA Bili) 23:48:55) [facility] ArlingtonOtdeajxCPNMGIVBYK1366-69-83 04:48:55 Test Item Value Reference Range Interpretation Comments UA Ketones (test code = Trace A UA Ketones) *ABN*(04/14/2013 23:48:55) [facility] ArlingtonXabjvmnXJRHEHSFRE7507-69-22 04:48:55 Test Item Value Reference Range Interpretation Comments UA Blood (test code = Negative (04/14/2013 N UA Blood) 23:48:55) [facility]MkkptycWFBLEOGUUC6241-18-34 04:48:55 Test Item Value Reference Range Interpretation Comments UA Urobilinogen (test code = UA 0.2 0.1-1.0 N Urobilinogen) [facility] ArlingtonNgaozivOGCYFJCDDQ1644-13-44 04:48:55 Test Item Value Reference Range Interpretation Comments UA Nitrite (test code Negative (04/14/2013 N = UA Nitrite) 23:48:55) [facility]xeqWEHEDTEBRC1644-52-75 04:48:55 Test Item Value Reference Range Interpretation Comments UA Leuk Est (test Negative (04/14/2013 N code = UA Leuk Est) 23:48:55) [facility] ArlingtonQurlqkqWVKQGUMTSZ2455-31-16 04:48:55 Test Item Value Reference Range Interpretation Comments UA Turbidity (test code = Clear (04/14/2013 N UA Turbidity) 23:48:55) [facility] ArlingtonNfioagzPGYBRVWDWI6110-06-06 04:48:55 Test Item Value Reference Range Interpretation Comments UA Color (test code = Yellow *NA*(04/14/2013 UA Color) 23:48:55) [facility] ArlingtonMreeuhxIPWEBCFSNH4460-40-17 04:48:55 Test Item Value Reference Range Interpretation Comments UA pH (test code = UA pH) 7.0 1 5.0-8.0 N [facility] ArlingtonIhhjaigFAYJUTZWSX5728-47-80 04:48:55 Test Item Value Reference Range Interpretation Comments UA Spec Grav (test code = UA Spec 1.025 1 N Grav) [facility] ArlingtonAkttdrmMJWPSIRKPC0564-38-61 04:48:55 Test Item Value Reference Range Interpretation Comments UA Protein (test code = Trace A UA Protein) *ABN*(04/14/2013 23:48:55) [facility]PdmtsunMOHLQJCDG4142-54-40 04:28:00 Test Item Value Reference Range Interpretation Comments S Preg (test code = S Negative *NA*(04/14/2013 Preg) 23:28:00) [facility] HospitalYghlpclCOOGMQXVV7013-31-45 04:28:00 Test Item Value Reference Range Interpretation Comments Lipase Lvl (test code = Lipase Lvl) 233 73-393 N [facility] HospitalZemueahWCCAQHKTB1269-57-44 04:28:00 Test Item Value Reference Range Interpretation Comments Globulin (test code = Globulin) 4.1 2.0-4.0 H [facility] HospitalSornowlXHGTPSIZJ2594-76-30 04:28:00 Test Item Value Reference Range Interpretation Comments AGAP (test code = AGAP) 10.5 10.0-20.0 N [facility] HospitalVcunbxvAPUVFTZAC3505-41-60 04:28:00 Test Item Value Reference Range Interpretation Comments B/C Ratio (test code = B/C Ratio) 6 6-25 N [facility] HospitalFjtdlsdVTIQIZQNV0098-21-87 04:28:00 Test Item Value Reference Range Interpretation Comments A/G Ratio (test code = A/G Ratio) 0.7 0.7-1.6 N [facility] HospitalYzmiweuAHBCEXMJX9878-29-54 04:28:00 Test Item Value Reference Range Interpretation Comments eGFR (test code = eGFR) 130 [facility] HospitalJatrvyeNOQJZSCWW7678-23-46 04:28:00 Test Item Value Reference Range Interpretation Comments Albumin Lvl (test code = Albumin Lvl) 2.9 3.5-5.0 L [facility] HospitalJjwhfsoSUGULYFWK4145-54-52 04:28:00 Test Item Value Reference Range Interpretation Comments ASPARTATE TRANSAMINASE 20 See_Comment N [Aut omated message] (test code = ASPARTATE The s ystem which TRANSAMINASE) generated this result transmitted ref erence range: <=37. Th e reference range was not used to interpr et this result as normal/abnormal . [facility] HospitalSjhdldwHRFSJGTBF8278-83-26 04:28:00 Test Item Value Reference Range Interpretation Comments Bili Total (test code = Bili Total) 0.5 0.2-1.3 N [facility] HospitalXdngpvuMJDYJLHNA3752-52-00 04:28:00 Test Item Value Reference Range Interpretation Comments Alk Phos (test code = Alk Phos) 89 39-136 N [facility] HospitalItznjcsFOFZHHSCT2019-34-59 04:28:00 Test Item Value Reference Range Interpretation Comments ALANINE AMINOTRANSFERASE 11 See_Comment N [A utomated message] (test code = ALANINE The sys tem which AMINOTRANSFERASE) generated this result transmitted ref erence range: <=65. Th e reference range was not used to int erpret this result as normal/abnormal . [facility]QukyemcUKSCCANBE7573-22-50 04:28:00 Test Item Value Reference Range Interpretation Comments Creatinine Lvl (test code = Creatinine 0.5 0.5-1.4 N Lvl) [facility] HospitalBhnztaiPZZJYTGBK7126-73-49 04:28:00 Test Item Value Reference Range Interpretation Comments BUN (test code = BUN) 3 7-22 L [facility] HospitalCvkzfslAOBIRDYPA3081-96-04 04:28:00 Test Item Value Reference Range Interpretation Comments Glucose Lvl (test code = Glucose Lvl) 255 70-99 H [facility] HospitalTuofijeCZKQIVWMW1803-25-22 04:28:00 Test Item Value Reference Range Interpretation Comments Total Protein (test code = Total 7.0 6.4-8.4 N Protein) [facility] HospitalAznbldvCQYYLVZNJ1124-52-32 04:28:00 Test Item Value Reference Range Interpretation Comments Calcium Lvl (test code = Calcium Lvl) 8.7 8.5-10.5 N [facility] HospitalHqppnbrKRXHKMFTC0533-93-31 04:28:00 Test Item Value Reference Range Interpretation Comments CO2 (test code = CO2) 29 24-32 N [facility] HospitalLckhzyeCHZIRMPJQ4683-66-08 04:28:00 Test Item Value Reference Range Interpretation Comments Chloride Lvl (test code = Chloride Lvl) 104 95-109 N [facility] HospitalOxqnbepNWDMKJUCG5822-34-49 04:28:00 Test Item Value Reference Range Interpretation Comments Potassium Lvl (test code = Potassium 3.5 3.5-5.1 N Lvl) [facility] HospitalEiruzqmYGRDJKGGF2937-51-16 04:28:00 Test Item Value Reference Range Interpretation Comments Sodium Lvl (test code = Sodium Lvl) 140 135-145 N [facility]WrgzjkxZNMMILMCTS1363-48-42 04:28:00 Test Item Value Reference Range Interpretation Comments PROTIME (test code = PROTIME) 12.1 s 12.0-14.7 N [facility] HospitalCznzarnVGORFANNXU4937-72-08 04:28:00 Test Item Value Reference Range Interpretation Comments aPTT (test code = aPTT) 39.0 s 22.9-35.8 H [facility] HospitalMmluezaYUQXKOGPRC0764-98-89 04:28:00 Test Item Value Reference Range Interpretation Comments INR (test code = INR) 0.90 0.85-1.17 N [facility] HospitalWwhjbaiMJKBRCIJSE4717-67-57 04:28:00 Test Item Value Reference Range Interpretation Comments MCH (test code = MCH) 29.4 pg 27.0-31.0 N [facility] HospitalYphihmeMMFSWQILCA6506-22-56 04:28:00 Test Item Value Reference Range Interpretation Comments MCV (test code = MCV) 86.1 81.0-99.0 N [facility] HospitalHyvlfenGTHGZKXWTH9377-68-51 04:28:00 Test Item Value Reference Range Interpretation Comments Hct (test code = Hct) 29.4 36.0-48.0 L [facility] HospitalDgqhabrHTPRIGKOGK4479-91-31 04:28:00 Test Item Value Reference Range Interpretation Comments RDW (test code = RDW) 14.0 11.5-14.5 N [facility] HospitalQowbctwYJQIPEHSKA8639-77-53 04:28:00 Test Item Value Reference Range Interpretation Comments WBC X 10x3 (test code = WBC X 10x3) 6.2 3.7-10.4 N [facility] HospitalEnqqluiFSCPYBLZNG4277-59-33 04:28:00 Test Item Value Reference Range Interpretation Comments Platelet (test code = Platelet) 178 133-450 N [facility] HospitalNqltnufHERVOJUCGZ9251-79-15 04:28:00 Test Item Value Reference Range Interpretation Comments MCHC (test code = MCHC) 34.1 32.0-36.0 N [facility] HospitalYfckaajYWVTQEJYXR6625-23-70 04:28:00 Test Item Value Reference Range Interpretation Comments RBC X 10x6 (test code = RBC X 10x6) 3.41 4.20-5.40 L [facility] HospitalNakuudzYFUFGMKWFV0237-15-26 04:28:00 Test Item Value Reference Range Interpretation Comments Hgb (test code = Hgb) 10.0 12.0-16.0 L [facility] HospitalTfzxyphFBRDVWMMRG6283-03-27 04:28:00 Test Item Value Reference Range Interpretation Comments MPV (test code = MPV) 10.1 7.4-10.4 N [facility] HospitalPasptcsROIPZFLMCR0488-60-95 04:28:00 Test Item Value Reference Range Interpretation Comments Segs-Bands # (test code = Segs-Bands #) 4.4 1.5-8.1 N [facility] HospitalTgesxvpQPDUNODODF0850-85-95 04:28:00 Test Item Value Reference Range Interpretation Comments Basophils (test code = 0.7 See_Comment N [Aut omated message] The Basophils) system which ge nerated this result tra nsmitted reference range : <=1.0. The reference r leo was not used to int erpret this result as normal/abnormal . [facility] HospitalUmxytrfYCFCUHJDJA1847-56-54 04:28:00 Test Item Value Reference Range Interpretation Comments Segs (test code = Segs) 70.7 45.0-75.0 N [facility] HospitalNpyquzqQCEUDJKGKM3643-39-35 04:28:00 Test Item Value Reference Range Interpretation Comments Monocytes # (test code 0.3 See_Comment N [Aut omated message] The = Monocytes #) system which generated this result tra nsmitted reference range : <=0.8. The reference r leo was not used to int erpret this result as normal/abnormal . [facility] HospitalQdyyhkwCELDEGILRR8038-35-47 04:28:00 Test Item Value Reference Range Interpretation Comments Lymphocytes # (test code = Lymphocytes 1.2 1.0-5.5 N #) [facility] HospitalAogodcrRUFNURXMYV3280-81-99 04:28:00 Test Item Value Reference Range Interpretation Comments Monocytes (test code = Monocytes) 4.5 2.0-12.0 N [facility] HospitalCandtyiKBJZXTICPU3663-20-87 04:28:00 Test Item Value Reference Range Interpretation Comments Eosinophils (test code = 4.1 See_Comment H [A utomated message] The Eosinophils) system which ge nerated this result tra nsmitted reference range : <=4.0. The reference r leo was not used to int erpret this result as normal/abnormal . [facility] HospitalMjamopfZQRTHVRNNG6591-46-88 04:28:00 Test Item Value Reference Range Interpretation Comments Lymphocytes (test code = Lymphocytes) 20.0 20.0-40.0 N [facility] HospitalInwibflBZMHUVHPGP3681-82-75 04:28:00 Test Item Value Reference Range Interpretation Comments Basophils # (test code 0.0 See_Comment N [Aut omated message] The = Basophils #) system which generated this result tra nsmitted reference range : <=0.2. The reference r leo was not used to int erpret this result as normal/abnormal . [facility] HospitalFxnxrwwEKIVVCLZBJ6786-79-56 04:28:00 Test Item Value Reference Range Interpretation Comments Eosinophils # (test code 0.3 See_Comment N [A utomated message] The = Eosinophils #) system whic h generated this result tra nsmitted reference range : <=0.5. The reference r leo was not used to int erpret this result as normal/abnormal . [facility] HospitalIbfmabyKJHFUUXRG0076-42-64 04:28:00 Test Item Value Reference Range Interpretation Comments S Preg (test code = S Negative *NA*(04/14/2013 Preg) 23:28:00) [facility] HospitalIldimstUYQSMDDNI5840-98-76 04:28:00 Test Item Value Reference Range Interpretation Comments Lipase Lvl (test code = Lipase Lvl) 233 73-393 N [facility] HospitalWmqwqsyFGDSBJWDJ0495-60-48 04:28:00 Test Item Value Reference Range Interpretation Comments Globulin (test code = Globulin) 4.1 2.0-4.0 H [facility] HospitalFxuhskvHEEEHNDWN7683-64-35 04:28:00 Test Item Value Reference Range Interpretation Comments AGAP (test code = AGAP) 10.5 10.0-20.0 N [facility] HospitalJamutauFFWDDBLAP5861-00-14 04:28:00 Test Item Value Reference Range Interpretation Comments B/C Ratio (test code = B/C Ratio) 6 6-25 N [facility] HospitalEbuojvcRPHHDNFHG5344-29-48 04:28:00 Test Item Value Reference Range Interpretation Comments A/G Ratio (test code = A/G Ratio) 0.7 0.7-1.6 N [facility] HospitalPleymwbCHHWJIHSB8013-35-58 04:28:00 Test Item Value Reference Range Interpretation Comments eGFR (test code = eGFR) 130 [facility] HospitalApceqkeCWJEOBEUH0495-13-31 04:28:00 Test Item Value Reference Range Interpretation Comments Albumin Lvl (test code = Albumin Lvl) 2.9 3.5-5.0 L [facility] HospitalPzsvpegFFIVGCGDM5738-97-66 04:28:00 Test Item Value Reference Range Interpretation Comments ASPARTATE TRANSAMINASE 20 See_Comment N [Aut omated message] (test code = ASPARTATE The s ystem which TRANSAMINASE) generated this result transmitted ref erence range: <=37. Th e reference range was not used to interpr et this result as normal/abnormal . [facility] HospitalFnrsjsoNRVROYWIW2805-98-11 04:28:00 Test Item Value Reference Range Interpretation Comments Bili Total (test code = Bili Total) 0.5 0.2-1.3 N [facility] HospitalDndmugtZZTIISFJB6447-79-65 04:28:00 Test Item Value Reference Range Interpretation Comments Alk Phos (test code = Alk Phos) 89 39-136 N [facility] HospitalSkpcoejIWUSJZYSH6431-55-25 04:28:00 Test Item Value Reference Range Interpretation Comments ALANINE AMINOTRANSFERASE 11 See_Comment N [A utomated message] (test code = ALANINE The sys tem which AMINOTRANSFERASE) generated this result transmitted ref erence range: <=65. Th e reference range was not used to int erpret this result as normal/abnormal . [facility] HospitalKgmkvwzKDIVSPANT3158-79-32 04:28:00 Test Item Value Reference Range Interpretation Comments Creatinine Lvl (test code = Creatinine 0.5 0.5-1.4 N Lvl) [facility] HospitalNvswewwBKLKHZZJM5255-80-81 04:28:00 Test Item Value Reference Range Interpretation Comments BUN (test code = BUN) 3 7-22 L [facility] HospitalBeenrgdJQWKHITQO2477-15-57 04:28:00 Test Item Value Reference Range Interpretation Comments Glucose Lvl (test code = Glucose Lvl) 255 70-99 H [facility] HospitalNnpfmomONXFSKERF0713-39-26 04:28:00 Test Item Value Reference Range Interpretation Comments Total Protein (test code = Total 7.0 6.4-8.4 N Protein) [facility] HospitalUrixnicUEWQGULVL5293-86-84 04:28:00 Test Item Value Reference Range Interpretation Comments Calcium Lvl (test code = Calcium Lvl) 8.7 8.5-10.5 N [facility] HospitalAunzunkPHYYONCWW4020-37-32 04:28:00 Test Item Value Reference Range Interpretation Comments CO2 (test code = CO2) 29 24-32 N [facility] HospitalWwsbjdhTQAYTVIYE3950-30-14 04:28:00 Test Item Value Reference Range Interpretation Comments Chloride Lvl (test code = Chloride Lvl) 104 95-109 N [facility] HospitalWuldqmqVLACXLTYP1876-16-63 04:28:00 Test Item Value Reference Range Interpretation Comments Potassium Lvl (test code = Potassium 3.5 3.5-5.1 N Lvl) [facility] HospitalMdsvfchMGESQTKWP8217-12-94 04:28:00 Test Item Value Reference Range Interpretation Comments Sodium Lvl (test code = Sodium Lvl) 140 135-145 N [facility] HospitalRwonrvbWTCDQZZYEV5102-86-18 04:28:00 Test Item Value Reference Range Interpretation Comments PROTIME (test code = PROTIME) 12.1 s 12.0-14.7 N [facility] HospitalXriokudZRLYYDZUGE5736-56-88 04:28:00 Test Item Value Reference Range Interpretation Comments aPTT (test code = aPTT) 39.0 s 22.9-35.8 H [facility] HospitalRoqkectAUPSHXMBUS8949-06-05 04:28:00 Test Item Value Reference Range Interpretation Comments INR (test code = INR) 0.90 0.85-1.17 N [facility] HospitalMpdypeiJTWRKWGVOM0523-53-58 04:28:00 Test Item Value Reference Range Interpretation Comments MCH (test code = MCH) 29.4 pg 27.0-31.0 N [facility] HospitalIlalyxdVFGWPSFIAU9059-75-17 04:28:00 Test Item Value Reference Range Interpretation Comments MCV (test code = MCV) 86.1 81.0-99.0 N [facility] HospitalVioqbacYELQPXIXWQ2429-32-15 04:28:00 Test Item Value Reference Range Interpretation Comments Hct (test code = Hct) 29.4 36.0-48.0 L [facility] HospitalSkqsqonVWLTSKTDQR0689-65-88 04:28:00 Test Item Value Reference Range Interpretation Comments RDW (test code = RDW) 14.0 11.5-14.5 N [facility] HospitalUhhazibKZCEYBMIBQ9270-76-58 04:28:00 Test Item Value Reference Range Interpretation Comments WBC X 10x3 (test code = WBC X 10x3) 6.2 3.7-10.4 N [facility] HospitalVxhtonfJBONUKVAGB4860-73-27 04:28:00 Test Item Value Reference Range Interpretation Comments Platelet (test code = Platelet) 178 133-450 N [facility] HospitalPuoqvzaNBDVTIRVTX2467-51-51 04:28:00 Test Item Value Reference Range Interpretation Comments MCHC (test code = MCHC) 34.1 32.0-36.0 N [facility] HospitalVtxcmjyPFFIKBRDDM2733-80-72 04:28:00 Test Item Value Reference Range Interpretation Comments RBC X 10x6 (test code = RBC X 10x6) 3.41 4.20-5.40 L [facility] HospitalVarptieJVCGXNLHYE6042-51-84 04:28:00 Test Item Value Reference Range Interpretation Comments Hgb (test code = Hgb) 10.0 12.0-16.0 L [facility] HospitalNtvcvhmNAAPJQNADN2446-16-55 04:28:00 Test Item Value Reference Range Interpretation Comments MPV (test code = MPV) 10.1 7.4-10.4 N [facility] HospitalBpixmbiIITKAXNPXL0419-72-72 04:28:00 Test Item Value Reference Range Interpretation Comments Segs-Bands # (test code = Segs-Bands #) 4.4 1.5-8.1 N [facility] HospitalYifzswnBIHFWTNKDI8843-78-31 04:28:00 Test Item Value Reference Range Interpretation Comments Basophils (test code = 0.7 See_Comment N [Aut omated message] The Basophils) system which ge nerated this result tra nsmitted reference range : <=1.0. The reference r leo was not used to int erpret this result as normal/abnormal . [facility] HospitalLilqsesTXUTEXYELG1755-01-62 04:28:00 Test Item Value Reference Range Interpretation Comments Segs (test code = Segs) 70.7 45.0-75.0 N [facility] HospitalZzhcwagWWXCBJCZHH2477-97-26 04:28:00 Test Item Value Reference Range Interpretation Comments Monocytes # (test code 0.3 See_Comment N [Aut omated message] The = Monocytes #) system which generated this result tra nsmitted reference range : <=0.8. The reference r leo was not used to int erpret this result as normal/abnormal . [facility] HospitalXdablqgZERTWMCZFV0447-25-24 04:28:00 Test Item Value Reference Range Interpretation Comments Lymphocytes # (test code = Lymphocytes 1.2 1.0-5.5 N #) [facility] HospitalOtuhqrrCSUMBVTMPD7660-84-48 04:28:00 Test Item Value Reference Range Interpretation Comments Monocytes (test code = Monocytes) 4.5 2.0-12.0 N [facility] HospitalHwwjirkNJBEAWMXOA9531-07-94 04:28:00 Test Item Value Reference Range Interpretation Comments Eosinophils (test code = 4.1 See_Comment H [A utomated message] The Eosinophils) system which ge nerated this result tra nsmitted reference range : <=4.0. The reference r leo was not used to int erpret this result as normal/abnormal . [facility] HospitalIimashmHJIULRMQMU2729-04-84 04:28:00 Test Item Value Reference Range Interpretation Comments Lymphocytes (test code = Lymphocytes) 20.0 20.0-40.0 N [facility] HospitalArxrpgbCYZXIIXFHX5389-41-89 04:28:00 Test Item Value Reference Range Interpretation Comments Basophils # (test code 0.0 See_Comment N [Aut omated message] The = Basophils #) system which generated this result tra nsmitted reference range : <=0.2. The reference r leo was not used to int erpret this result as normal/abnormal . [facility] HospitalLmectjrMOVIJTSRXJ9408-09-32 04:28:00 Test Item Value Reference Range Interpretation Comments Eosinophils # (test code 0.3 See_Comment N [A utomated message] The = Eosinophils #) system whic h generated this result tra nsmitted reference range : <=0.5. The reference r leo was not used to int erpret this result as normal/abnormal . [facility] GLUCOSE NPRYYJL2977-33-48 01:12:00 Test Item Value Reference Range Interpretation Comments Gluc POC Lifscn (test code = Gluc POC 260 70-99 H Lifscn) [facility] GLUCOSE TPYTXST9356-40-85 01:12:00 Test Item Value Reference Range Interpretation Comments Comment1 (test code = Comment1) Notify RN/ [facility] GLUCOSE VBSUUKX6005-84-14 01:12:00 Test Item Value Reference Range Interpretation Comments Gluc POC Lifscn (test code = Gluc POC 260 70-99 H Lifscn) [facility] GLUCOSE OVJYIEW8108-20-01 01:12:00 Test Item Value Reference Range Interpretation Comments Comment1 (test code = Comment1) [facility]yvtptsHZGOVXDKUV7737-57-58 23:40:00 Test Item Value Reference Range Interpretation Comments UA Protein (test code = Trace A UA Protein) *ABN*(03/14/2012 18:40:00) [facility] HospitalHyhtkaqPHVFJDUVOZ7729-55-36 23:40:00 Test Item Value Reference Range Interpretation Comments UA pH (test code = UA pH) 6.0 1 5.0-8.0 N [facility] HospitalNdhktfmTAAUYIAVSI4782-37-36 23:40:00 Test Item Value Reference Range Interpretation Comments UA Ketones (test code = >=80 mg/dL UA Ketones) *NA*(03/14/2012 18:40:00) [facility] HospitalUjscmpbCSYXMJWWGC1184-55-94 23:40:00 Test Item Value Reference Range Interpretation Comments UA Glucose (test code = >=1000 mg/dL A UA Glucose) *ABN*(03/14/2012 18:40:00) [facility]GxkdxbrSLGECZSNHS9425-93-09 23:40:00 Test Item Value Reference Range Interpretation Comments UA Blood (test code = Negative (03/14/2012 N UA Blood) 18:40:00) [facility] ArlingtonBynavksARVMXVIZPF5944-38-39 23:40:00 Test Item Value Reference Range Interpretation Comments UA Nitrite (test code Negative (03/14/2012 N = UA Nitrite) 18:40:00) [facility] ArlingtonHtwcxvyZXKOPZYMMO7439-66-75 23:40:00 Test Item Value Reference Range Interpretation Comments UA Urobilinogen (test code = UA 0.2 0.1-1.0 N Urobilinogen) [facility] ArlingtonRmxoznrXNLDXPEQIQ3474-05-48 23:40:00 Test Item Value Reference Range Interpretation Comments UA Leuk Est (test Negative (03/14/2012 N code = UA Leuk Est) 18:40:00) [facility] ArlingtonBwqbzdhQDGEMKCQWI9645-02-90 23:40:00 Test Item Value Reference Range Interpretation Comments UA Bili (test code = Negative *NA*(03/14/2012 UA Bili) 18:40:00) [facility] ArlingtonLmlqomxGMKHALFRFH1547-38-93 23:40:00 Test Item Value Reference Range Interpretation Comments UA Turbidity (test code = Clear (03/14/2012 N UA Turbidity) 18:40:00) [facility] ArlingtonTojihgcTRNIHRKAVD7852-42-42 23:40:00 Test Item Value Reference Range Interpretation Comments UA Color (test code = Yellow *NA*(03/14/2012 UA Color) 18:40:00) [facility] ArlingtonCughuqsXWPQQFIDQT5173-89-18 23:40:00 Test Item Value Reference Range Interpretation Comments UA Spec Grav (test >=1.030 A code = UA Spec Grav) *ABN*(03/14/2012 18:40:00) [facility] ArlingtonFnycitfZCMAJQSFHZ2668-97-96 23:40:00 Test Item Value Reference Range Interpretation Comments UA Sq Epi (test code Occasional /LPF N = UA Sq Epi) (03/14/2012 18:40:00) [facility] ArlingtonJvexeqaELHWNVTQOJ0038-58-18 23:40:00 Test Item Value Reference Range Interpretation Comments UA WBC (test code = UA 3-5 /HPF (03/14/2012 N WBC) 18:40:00) [facility] ArlingtonSdfwvhhMZNSHIEPYK8902-99-81 23:40:00 Test Item Value Reference Range Interpretation Comments UA Bacteria (test code Occasional /HPF N = UA Bacteria) (03/14/2012 18:40:00) [facility] ArlingtonOpyrmtmWFSDZLXXSV7504-94-48 23:40:00 Test Item Value Reference Range Interpretation Comments UA Protein (test code = Trace A UA Protein) *ABN*(03/14/2012 18:40:00) [facility] ArlingtonElqlgfjFIASUBAGHI4217-15-18 23:40:00 Test Item Value Reference Range Interpretation Comments UA pH (test code = UA pH) 6.0 1 5.0-8.0 N [facility] ArlingtonUjcpzyeSUZHXLLQQB0292-55-94 23:40:00 Test Item Value Reference Range Interpretation Comments UA Ketones (test code = >=80 mg/dL UA Ketones) *NA*(03/14/2012 18:40:00) [facility] ArlingtonZympmhcJRDMEFSLXE6364-30-95 23:40:00 Test Item Value Reference Range Interpretation Comments UA Glucose (test code = >=1000 mg/dL A UA Glucose) *ABN*(03/14/2012 18:40:00) [facility] ArlingtonAcikjvdEKRQNSKJSP8781-03-56 23:40:00 Test Item Value Reference Range Interpretation Comments UA Blood (test code = Negative (03/14/2012 N UA Blood) 18:40:00) [facility] ArlingtonNskouynOGZXZSRPDW9074-04-35 23:40:00 Test Item Value Reference Range Interpretation Comments UA Nitrite (test code Negative (03/14/2012 N = UA Nitrite) 18:40:00) [facility] ArlingtonTevpibiWESIZCKTJN8829-14-35 23:40:00 Test Item Value Reference Range Interpretation Comments UA Urobilinogen (test code = UA 0.2 0.1-1.0 N Urobilinogen) [facility] ArlingtonLsgoqczWHWAEIEXYH8803-57-86 23:40:00 Test Item Value Reference Range Interpretation Comments UA Leuk Est (test Negative (03/14/2012 N code = UA Leuk Est) 18:40:00) [facility] ArlingtonKeqmxuoPRUBUZSUTA4618-78-64 23:40:00 Test Item Value Reference Range Interpretation Comments UA Bili (test code = Negative *NA*(03/14/2012 UA Bili) 18:40:00) [facility]TbiootqCAZPQGLFRY1014-77-91 23:40:00 Test Item Value Reference Range Interpretation Comments UA Turbidity (test code = Clear (03/14/2012 N UA Turbidity) 18:40:00) [facility] ArlingtonLsuesifFBGNHUVVYR8582-43-04 23:40:00 Test Item Value Reference Range Interpretation Comments UA Color (test code = Yellow *NA*(03/14/2012 UA Color) 18:40:00) [facility] ArlingtonQkwikbfRRRPACWBUL8960-77-62 23:40:00 Test Item Value Reference Range Interpretation Comments UA Spec Grav (test >=1.030 A code = UA Spec Grav) *ABN*(03/14/2012 18:40:00) [facility] ArlingtonZiepfphGWQUVMUPUF0957-86-38 23:40:00 Test Item Value Reference Range Interpretation Comments UA Sq Epi (test code Occasional /LPF N = UA Sq Epi) (03/14/2012 18:40:00) [facility] ArlingtonDeepwjqVZZQVDWDNI0818-54-56 23:40:00 Test Item Value Reference Range Interpretation Comments UA WBC (test code = UA 3-5 /HPF (03/14/2012 N WBC) 18:40:00) [facility] ArlingtonEaxwyncJPCLKEYCTO3659-76-88 23:40:00 Test Item Value Reference Range Interpretation Comments UA Bacteria (test code Occasional /HPF N = UA Bacteria) (03/14/2012 18:40:00) [facility] HospitalJcnxaesECLHAQAXV2387-72-61 22:50:00 Test Item Value Reference Range Interpretation Comments S Preg (test code = S Negative *NA*(03/14/2012 Preg) 17:50:00) [facility] HospitalCremyetAWZMZSAED2200-16-32 22:50:00 Test Item Value Reference Range Interpretation Comments Lipase Lvl (test code = Lipase Lvl) 45 73-393 L [facility] HospitalUxlanffVUYBMPWDO2308-35-75 22:50:00 Test Item Value Reference Range Interpretation Comments A/G Ratio (test code = A/G Ratio) 1.2 0.7-1.6 N [facility] HospitalUlzusltALUNXUWCS3039-62-45 22:50:00 Test Item Value Reference Range Interpretation Comments Globulin (test code = Globulin) 3.8 2.0-4.0 N [facility] HospitalGgmlfduSLMUFKDHV4104-50-84 22:50:00 Test Item Value Reference Range Interpretation Comments B/C Ratio (test code = B/C Ratio) 21 6-25 N [facility] HospitalWkyzffbRESAEZCFS5597-90-32 22:50:00 Test Item Value Reference Range Interpretation Comments AGAP (test code = AGAP) 16.8 10.0-20.0 N [facility] HospitalJbjkxmmEIBJQPQWB1846-89-59 22:50:00 Test Item Value Reference Range Interpretation Comments Bili Total (test code = Bili Total) 1.1 0.2-1.3 N [facility] HospitalWgqwqetAZRUREGVS8833-56-48 22:50:00 Test Item Value Reference Range Interpretation Comments Total Protein (test code = Total 8.2 6.4-8.4 N Protein) [facility] HospitalWflhwawXIWALHEBK9518-41-24 22:50:00 Test Item Value Reference Range Interpretation Comments Potassium Lvl (test code = Potassium 3.8 3.5-5.1 N Lvl) [facility] HospitalLgkeooqJEQFGCJID4926-77-17 22:50:00 Test Item Value Reference Range Interpretation Comments Creatinine Lvl (test code = Creatinine 0.7 0.5-1.4 N Lvl) [facility]FhpcppzXNZMHFPWJ0090-46-25 22:50:00 Test Item Value Reference Range Interpretation Comments Sodium Lvl (test code = Sodium Lvl) 139 135-145 N [facility] HospitalQjazuozXENSVNFRI8779-52-11 22:50:00 Test Item Value Reference Range Interpretation Comments Chloride Lvl (test code = Chloride Lvl) 99 95-109 N [facility] HospitalJpdxswfQOWMTMYIN5743-30-91 22:50:00 Test Item Value Reference Range Interpretation Comments CO2 (test code = CO2) 27 24-32 N [facility] HospitalRkssvzbQPWUWHASQ6370-05-01 22:50:00 Test Item Value Reference Range Interpretation Comments Glucose Lvl (test code = Glucose Lvl) 301 70-99 H [facility] HospitalYamgkuhGYXHFQIRA9195-63-82 22:50:00 Test Item Value Reference Range Interpretation Comments BUN (test code = BUN) 15 7-22 N [facility] HospitalIbggilvMZUALZHRJ2294-10-16 22:50:00 Test Item Value Reference Range Interpretation Comments ALT (test code = ALT) 24 See_Comment N [Auto mated message] The system which ge nerated this result transmit rohit reference range : <=65. The reference range was not used to interpr et this result as reji l/abnormal. [facility] HospitalExyzlafIYJOFLUKB3326-65-58 22:50:00 Test Item Value Reference Range Interpretation Comments AST (test code = AST) 20 See_Comment N [Auto mated message] The system which ge nerated this result transmit rohit reference range : <=37. The reference range was not used to interpr et this result as reji l/abnormal. [facility] HospitalEvikpeaLHYDKWUFZ4445-54-43 22:50:00 Test Item Value Reference Range Interpretation Comments Alk Phos (test code = Alk Phos) 67 39-136 N [facility] HospitalMswotliHFXLLRYNL8705-20-77 22:50:00 Test Item Value Reference Range Interpretation Comments Albumin Lvl (test code = Albumin Lvl) 4.4 3.5-5.0 N [facility] HospitalIfsiaglJXKSSPJOE7561-28-92 22:50:00 Test Item Value Reference Range Interpretation Comments Calcium Lvl (test code = Calcium Lvl) 9.9 8.5-10.5 N [facility] HospitalJrrxxjpYOMOAIFQXD5608-00-58 22:50:00 Test Item Value Reference Range Interpretation Comments MPV (test code = MPV) 11.8 7.4-10.4 H [facility] HospitalZsqmzhqWVPQGVZVUP8043-88-45 22:50:00 Test Item Value Reference Range Interpretation Comments MCHC (test code = MCHC) 35.9 32.0-36.0 N [facility] HospitalQsmpoajMWIQGFRICT8771-81-81 22:50:00 Test Item Value Reference Range Interpretation Comments MCH (test code = MCH) 31.2 pg 27.0-31.0 H [facility] HospitalPuscvxbBNSRMIKMHW1128-42-41 22:50:00 Test Item Value Reference Range Interpretation Comments Platelet (test code = Platelet) 189 133-450 N [facility] HospitalAdqdifgOYIAWMFTDG8628-81-77 22:50:00 Test Item Value Reference Range Interpretation Comments RDW (test code = RDW) 13.1 11.5-14.5 N [facility] HospitalWnuwnonRWLUZWMOJD0444-00-94 22:50:00 Test Item Value Reference Range Interpretation Comments Hct (test code = Hct) 40.7 36.0-48.0 N [facility] HospitalRtvgdclURXOUZFJAE6430-90-03 22:50:00 Test Item Value Reference Range Interpretation Comments Hgb (test code = Hgb) 14.6 12.0-16.0 N [facility] HospitalZbmdwldOUISTMALYO7571-06-92 22:50:00 Test Item Value Reference Range Interpretation Comments MCV (test code = MCV) 87.0 81.0-99.0 N [facility] HospitalKpktbfxYZJZEKCOQG0749-32-80 22:50:00 Test Item Value Reference Range Interpretation Comments WBC (test code = WBC) 11.7 3.7-10.4 H [facility] HospitalMcufhhyGJXJRZWPZD9696-23-69 22:50:00 Test Item Value Reference Range Interpretation Comments RBC (test code = RBC) 4.68 4.20-5.40 N [facility] HospitalYsubxnfTAALOSBYKR8466-70-70 22:50:00 Test Item Value Reference Range Interpretation Comments Basophils # (test code 0.0 See_Comment N [Aut omated message] The = Basophils #) system which generated this result tra nsmitted reference range : <=0.2. The reference r leo was not used to int erpret this result as normal/abnormal . [facility] HospitalOyggapnPYDJQEADZT9291-26-94 22:50:00 Test Item Value Reference Range Interpretation Comments Basophils (test code = 0.2 See_Comment N [Aut omated message] The Basophils) system which ge nerated this result tra nsmitted reference range : <=1.0. The reference r leo was not used to int erpret this result as normal/abnormal . [facility] HospitalZkdqnwqRZBCYSAKAL0212-96-82 22:50:00 Test Item Value Reference Range Interpretation Comments Eosinophils # (test code 0.0 See_Comment N [A utomated message] The = Eosinophils #) system ic h generated this result tra nsmitted reference range : <=0.5. The reference r leo was not used to int erpret this result as normal/abnormal . [facility] HospitalFvepmwbIWKLHNHFYW6380-55-44 22:50:00 Test Item Value Reference Range Interpretation Comments Monocytes # (test code 0.4 See_Comment N [Aut omated message] The = Monocytes #) system which generated this result tra nsmitted reference range : <=0.8. The reference r leo was not used to int erpret this result as normal/abnormal . [facility] HospitalMbnzkvdKAAPFDNYYA4423-97-47 22:50:00 Test Item Value Reference Range Interpretation Comments Segs-Bands # (test code = Segs-Bands #) 10.6 1.5-8.1 H [facility] HospitalTtsecasBLJDKFKKYC9594-48-48 22:50:00 Test Item Value Reference Range Interpretation Comments Lymphocytes # (test code = Lymphocytes 0.7 1.0-5.5 L #) [facility] HospitalOyydxyhCJVGGJSQJT1561-61-38 22:50:00 Test Item Value Reference Range Interpretation Comments Monocytes (test code = Monocytes) 3.4 2.0-12.0 N [facility] HospitalJptkrbvIHKJWSLXDA5471-04-97 22:50:00 Test Item Value Reference Range Interpretation Comments Plt Morph (test code = Normal (03/14/2012 N Plt Morph) 17:50:00) [facility] HospitalErsabrsMPPQDBFRVZ1222-58-62 22:50:00 Test Item Value Reference Range Interpretation Comments Lymphocytes (test code = Lymphocytes) 6.0 20.0-40.0 L [facility] HospitalHykpvxjOVZMUCHNYM6648-42-12 22:50:00 Test Item Value Reference Range Interpretation Comments Eosinophils (test code = 0.0 See_Comment N [A utomated message] The Eosinophils) system which ge nerated this result tra nsmitted reference range : <=4.0. The reference r leo was not used to int erpret this result as normal/abnormal . [facility] HospitalQqhxjowAXAJMHJPTJ4084-92-60 22:50:00 Test Item Value Reference Range Interpretation Comments Segs (test code = Segs) 90.4 45.0-75.0 H [facility] HospitalHvkopijVFTZLZBVBP1378-92-37 22:50:00 Test Item Value Reference Range Interpretation Comments RBC Morph (test code = Normal (03/14/2012 N RBC Morph) 17:50:00) [facility] HospitalRonqwqxBSKMHWGSZ5532-32-55 22:50:00 Test Item Value Reference Range Interpretation Comments S Preg (test code = S Negative *NA*(03/14/2012 Preg) 17:50:00) [facility] HospitalKepuihdTMKWEAGIE7146-00-26 22:50:00 Test Item Value Reference Range Interpretation Comments Lipase Lvl (test code = Lipase Lvl) 45 73-393 L [facility] HospitalNdmfwlwKMXXKWGJT4979-88-75 22:50:00 Test Item Value Reference Range Interpretation Comments A/G Ratio (test code = A/G Ratio) 1.2 0.7-1.6 N [facility] HospitalWxjsskzWSPHULUPO2207-02-42 22:50:00 Test Item Value Reference Range Interpretation Comments Globulin (test code = Globulin) 3.8 2.0-4.0 N [facility] HospitalFlcyjqpEETLECWQE2656-72-08 22:50:00 Test Item Value Reference Range Interpretation Comments B/C Ratio (test code = B/C Ratio) 21 6-25 N [facility] HospitalEdrkhrhLETMFITOC6550-85-01 22:50:00 Test Item Value Reference Range Interpretation Comments AGAP (test code = AGAP) 16.8 10.0-20.0 N [facility] HospitalEkawhtsXZWZMGSIV4668-16-48 22:50:00 Test Item Value Reference Range Interpretation Comments Bili Total (test code = Bili Total) 1.1 0.2-1.3 N [facility] HospitalXgmhhpoRVAPXMALY9857-84-18 22:50:00 Test Item Value Reference Range Interpretation Comments Total Protein (test code = Total 8.2 6.4-8.4 N Protein) [facility] HospitalLzoreanCRLUSSTEJ9651-23-11 22:50:00 Test Item Value Reference Range Interpretation Comments Potassium Lvl (test code = Potassium 3.8 3.5-5.1 N Lvl) [facility] HospitalGinycevMSWVSIMCH5422-57-61 22:50:00 Test Item Value Reference Range Interpretation Comments Creatinine Lvl (test code = Creatinine 0.7 0.5-1.4 N Lvl) [facility] HospitalLdcifzrMICTNHGWS8963-97-07 22:50:00 Test Item Value Reference Range Interpretation Comments Sodium Lvl (test code = Sodium Lvl) 139 135-145 N [facility] HospitalNcdfqxwIZXLDZJUS7850-39-75 22:50:00 Test Item Value Reference Range Interpretation Comments Chloride Lvl (test code = Chloride Lvl) 99 95-109 N [facility] HospitalEotefhuXYBLQJSLR9055-27-38 22:50:00 Test Item Value Reference Range Interpretation Comments CO2 (test code = CO2) 27 24-32 N [facility] HospitalOppoftwNPIZSJIBX4578-50-79 22:50:00 Test Item Value Reference Range Interpretation Comments Glucose Lvl (test code = Glucose Lvl) 301 70-99 H [facility] HospitalRnfygdwKHXRSVVME4144-08-32 22:50:00 Test Item Value Reference Range Interpretation Comments BUN (test code = BUN) 15 7-22 N [facility] HospitalUalzlmgSTAOKKRUZ1766-61-31 22:50:00 Test Item Value Reference Range Interpretation Comments ALT (test code = ALT) 24 See_Comment N [Auto mated message] The system which ge nerated this result transmit rohit reference range : <=65. The reference range was not used to interpr et this result as reji l/abnormal. [facility] HospitalZeujswuGDPHHOQWO9304-98-18 22:50:00 Test Item Value Reference Range Interpretation Comments AST (test code = AST) 20 See_Comment N [Auto mated message] The system which ge nerated this result transmit rohit reference range : <=37. The reference range was not used to interpr et this result as reji l/abnormal. [facility] HospitalYynnwphZAFUQDNPZ2056-69-40 22:50:00 Test Item Value Reference Range Interpretation Comments Alk Phos (test code = Alk Phos) 67 39-136 N [facility] HospitalMckjiigOFVSVWFWT3205-59-23 22:50:00 Test Item Value Reference Range Interpretation Comments Albumin Lvl (test code = Albumin Lvl) 4.4 3.5-5.0 N [facility] HospitalFigyedxZMETWUZCH4214-25-59 22:50:00 Test Item Value Reference Range Interpretation Comments Calcium Lvl (test code = Calcium Lvl) 9.9 8.5-10.5 N [facility] HospitalDtryszePTZGBVFMIO5005-27-59 22:50:00 Test Item Value Reference Range Interpretation Comments MPV (test code = MPV) 11.8 7.4-10.4 H [facility] HospitalNhvktblQOHTMFCBMY7815-94-15 22:50:00 Test Item Value Reference Range Interpretation Comments MCHC (test code = MCHC) 35.9 32.0-36.0 N [facility] HospitalAvrvshhTINLGZHMEX0033-13-71 22:50:00 Test Item Value Reference Range Interpretation Comments MCH (test code = MCH) 31.2 pg 27.0-31.0 H [facility] HospitalUehyqqpIJLVTCABIH5084-28-68 22:50:00 Test Item Value Reference Range Interpretation Comments Platelet (test code = Platelet) 189 133-450 N [facility] HospitalRxgasmkOUYXWOYXRN4700-84-33 22:50:00 Test Item Value Reference Range Interpretation Comments RDW (test code = RDW) 13.1 11.5-14.5 N [facility] HospitalVtqxzstMJKWPTLLAR1237-80-48 22:50:00 Test Item Value Reference Range Interpretation Comments Hct (test code = Hct) 40.7 36.0-48.0 N [facility] HospitalHqimizrPNWZVRHTFT9447-98-86 22:50:00 Test Item Value Reference Range Interpretation Comments Hgb (test code = Hgb) 14.6 12.0-16.0 N [facility] HospitalWlwkzimRYXDWQIICQ0279-06-15 22:50:00 Test Item Value Reference Range Interpretation Comments MCV (test code = MCV) 87.0 81.0-99.0 N [facility] HospitalKcvtqiuWGHJNWGUMY5547-57-10 22:50:00 Test Item Value Reference Range Interpretation Comments WBC (test code = WBC) 11.7 3.7-10.4 H [facility] HospitalNjfbfxrRELVOUXVED3906-43-65 22:50:00 Test Item Value Reference Range Interpretation Comments RBC (test code = RBC) 4.68 4.20-5.40 N [facility] HospitalJgjmiomATAISXMCJO4392-14-95 22:50:00 Test Item Value Reference Range Interpretation Comments Basophils # (test code 0.0 See_Comment N [Aut omated message] The = Basophils #) system which generated this result tra nsmitted reference range : <=0.2. The reference r leo was not used to int erpret this result as normal/abnormal . [facility] HospitalEexuxisXAGUCPVWYK4781-83-17 22:50:00 Test Item Value Reference Range Interpretation Comments Basophils (test code = 0.2 See_Comment N [Aut omated message] The Basophils) system which ge nerated this result tra nsmitted reference range : <=1.0. The reference r leo was not used to int erpret this result as normal/abnormal . [facility] HospitalRgesjwtODEWJXCLPR0469-62-22 22:50:00 Test Item Value Reference Range Interpretation Comments Eosinophils # (test code 0.0 See_Comment N [A utomated message] The = Eosinophils #) system whic h generated this result tra nsmitted reference range : <=0.5. The reference r leo was not used to int erpret this result as normal/abnormal . [facility] HospitalSugaepkRRCCUNSEMO4624-49-03 22:50:00 Test Item Value Reference Range Interpretation Comments Monocytes # (test code 0.4 See_Comment N [Aut omated message] The = Monocytes #) system which generated this result tra nsmitted reference range : <=0.8. The reference r leo was not used to int erpret this result as normal/abnormal . [facility] HospitalRavlyyrONVWMFPHIO3617-45-17 22:50:00 Test Item Value Reference Range Interpretation Comments Segs-Bands # (test code = Segs-Bands #) 10.6 1.5-8.1 H [facility] HospitalJglhrldRQAZPKBHNF5351-86-42 22:50:00 Test Item Value Reference Range Interpretation Comments Lymphocytes # (test code = Lymphocytes 0.7 1.0-5.5 L #) [facility] HospitalIwslhhwAGMJKOXBMK8817-42-90 22:50:00 Test Item Value Reference Range Interpretation Comments Monocytes (test code = Monocytes) 3.4 2.0-12.0 N [facility] HospitalUgxdrotEHYKQAMXJI6733-53-34 22:50:00 Test Item Value Reference Range Interpretation Comments Plt Morph (test code = Normal (03/14/2012 N Plt Morph) 17:50:00) [facility] HospitalIbzlzcjHXGEFISBEI7543-06-43 22:50:00 Test Item Value Reference Range Interpretation Comments Lymphocytes (test code = Lymphocytes) 6.0 20.0-40.0 L [facility] HospitalOgzxolmJNSZMNRHZS4100-38-38 22:50:00 Test Item Value Reference Range Interpretation Comments Eosinophils (test code = 0.0 See_Comment N [A utomated message] The Eosinophils) system which ge nerated this result tra nsmitted reference range : <=4.0. The reference r leo was not used to int erpret this result as normal/abnormal . [facility] HospitalRewkbtkPDCLFUUGGT9834-86-57 22:50:00 Test Item Value Reference Range Interpretation Comments Segs (test code = Segs) 90.4 45.0-75.0 H [facility] HospitalNztfnrzJMUXAPFSEN6966-06-80 22:50:00 Test Item Value Reference Range Interpretation Comments RBC Morph (test code = Normal (03/14/2012 N RBC Morph) 17:50:00) [facility] GLUCOSE CMDAKNB9814-44-89 23:43:00 Test Item Value Reference Range Interpretation Comments Gluc POC Lifscn (test code = Gluc POC 167 70-99 H Lifscn) [facility] GLUCOSE GYZZWXD9459-72-88 23:43:00 Test Item Value Reference Range Interpretation Comments Comment1 (test code = Comment1) Notify RN/MD [facility] GLU[facility]SE [id number] 23:43:00 Test Item Value Reference Range Interpretation Comments Comment2 (test code = Comment2) Sliding Scale [facility] GLUCOSE [id number] 23:43:00 Test Item Value Reference Range Interpretation Comments Gluc POC Lifscn (test code = Gluc POC 167 70-99 H Lifscn) [facility] GLUCOSE [id number] 23:43:00 Test Item Value Reference Range Interpretation Comments Comment1 (test code = Comment1) Notify RN/MD [facility] GLUCOSE [id number] 23:43:00 Test Item Value Reference Range Interpretation Comments Comment2 (test code = Comment2) Sliding Scale [facility] GLUCOSE [id number] 17:40:00 Test Item Value Reference Range Interpretation Comments Gluc POC Lifscn (test code = Gluc POC 189 70-99 H Lifscn) [facility] GLUCOSE [id number] 17:40:00 Test Item Value Reference Range Interpretation Comments Comment1 (test code = Comment1) Notify RN/ [facility] GLUCOSE [id number] 17:40:00 Test Item Value Reference Range Interpretation Comments Comment2 (test code = Comment2) Sliding Scale [facility] GLU[facility]SE [id number] 17:40:00 Test Item Value Reference Range Interpretation Comments Gluc POC Lifscn (test code = Gluc POC 189 70-99 H Lifscn) [facility] GLUCOSE [id number] 17:40:00 Test Item Value Reference Range Interpretation Comments Comment1 (test code = Comment1) Notify RN/ [facility] GLUCOSE [id number] 17:40:00 Test Item Value Reference Range Interpretation Comments Comment2 (test code = Comment2) Sliding Scale [facility] GLUCOSE [id number] 13:34:00 Test Item Value Reference Range Interpretation Comments Comment2 (test code = Comment2) Sliding Scale [facility] GLUCOSE [id number] 13:34:00 Test Item Value Reference Range Interpretation Comments Gluc POC Lifscn (test code = Gluc POC 110 70-99 H Lifscn) [facility] GLUCOSE [id number] 13:34:00 Test Item Value Reference Range Interpretation Comments Comment1 (test code = Comment1) Notify RN/ [facility] GLUCOSE [id number] 13:34:00 Test Item Value Reference Range Interpretation Comments Comment2 (test code = Comment2) Sliding Scale [facility] GLUCOSE [id number] 13:34:00 Test Item Value Reference Range Interpretation Comments Gluc POC Lifscn (test code = Gluc POC 110 70-99 H Lifscn) [facility] GLUCOSE [id number] 13:34:00 Test Item Value Reference Range Interpretation Comments Comment1 (test code = Comment1) Notify RN/ [facility] CypressZeptmelALNXVODZB5708-24-90 00:00:00 Test Item Value Reference Range Interpretation Comments U Preg (test code = U Negative (11/28/2011 N Preg) 19:00:00) [facility]XwxnzxmBOLAODXCYA0044-21-68 00:00:00 Test Item Value Reference Range Interpretation Comments Micro? (test code = Performed (11/28/2011 N Micro?) 19:00:00) [facility] HospitalIrfyjmhVTJIFRIFOC5465-05-14 00:00:00 Test Item Value Reference Range Interpretation Comments UA Sq Epi (test code Occasional /LPF N = UA Sq Epi) (11/28/2011 19:00:00) [facility] HospitalKxhhrjsGINDSSDSOC8277-37-37 00:00:00 Test Item Value Reference Range Interpretation Comments UA RBC (test None Seen See_Comment N [Automated mes pastor] code = UA RBC) (11/28/2011 The system [facility] 19:00:00) generated this result transmitted ref erence range: <=2. The reference range was not used to int erpret this result as normal/abnormal . [facility] CypressFgwxwxcDCKXMZCTYM8636-82-69 00:00:00 Test Item Value Reference Range Interpretation Comments UA WBC (test code Occasional See_Comment [Automate d message] The = UA WBC) system which ge nerated this result tra nsmitted reference range : <=5. The reference range was not used to interpr et this result as normal/abnormal . [facility] HospitalMwnenqkEQNJFWDKTD8065-12-21 00:00:00 Test Item Value Reference Range Interpretation Comments UA Protein (test code Negative mg/dL N = UA Protein) (11/28/2011 19:00:00) [facility]TxsdnjcXKZTOUIEAI4654-29-38 00:00:00 Test Item Value Reference Range Interpretation Comments UA pH (test code = UA pH) 7.0 1 5.0-8.0 N [facility]HnjppofKPJYXZPYKI6585-05-24 00:00:00 Test Item Value Reference Range Interpretation Comments UA Spec Grav (test code = UA Spec 1.020 1 N Grav) [facility] ArlingtonQgbbwczEHGFIBDGGQ2498-68-27 00:00:00 Test Item Value Reference Range Interpretation Comments UA Turbidity (test code = Clear (11/28/2011 N UA Turbidity) 19:00:00) [facility] ArlingtonRbzlvrbPUKRCDGIEK9381-32-68 00:00:00 Test Item Value Reference Range Interpretation Comments UA Color (test code = Yellow *NA*(11/28/2011 UA Color) 19:00:00) [facility] ArlingtonRkzkplcNTGHEYCPKL0077-36-47 00:00:00 Test Item Value Reference Range Interpretation Comments UA Urobilinogen (test code = UA 0.2 0.1-1.0 N Urobilinogen) [facility] ArlingtonQupqlgcGGYFROPTCQ8128-01-82 00:00:00 Test Item Value Reference Range Interpretation Comments UA Blood (test code = Negative (11/28/2011 N UA Blood) 19:00:00) [facility] ArlingtonPdnzecmQBYNSYFVRC3950-69-48 00:00:00 Test Item Value Reference Range Interpretation Comments UA Bili (test code = Negative *NA*(11/28/2011 UA Bili) 19:00:00) [facility] ArlingtonRradholKBAZNCAWPY7698-71-98 00:00:00 Test Item Value Reference Range Interpretation Comments UA Ketones (test code = >=80 mg/dL A UA Ketones) *ABN*(11/28/2011 19:00:00) [facility] AzleWzaqkvhUZUPSLKTXX3141-08-42 00:00:00 Test Item Value Reference Range Interpretation Comments UA Glucose (test code = >=1000 mg/dL A UA Glucose) *ABN*(11/28/2011 19:00:00) [facility] ArlingtonVuqlhtoCCMPNITNWU3033-91-29 00:00:00 Test Item Value Reference Range Interpretation Comments UA Nitrite (test code Negative (11/28/2011 N = UA Nitrite) 19:00:00) [facility] ArlingtonHopzonlIQBWSFRPNB2865-10-70 00:00:00 Test Item Value Reference Range Interpretation Comments UA Leuk Est (test Negative (11/28/2011 N code = UA Leuk Est) 19:00:00) [facility] HospitalYagdwkcQFAFVPDEZ2376-80-43 00:00:00 Test Item Value Reference Range Interpretation Comments U Preg (test code = U Negative (11/28/2011 N Preg) 19:00:00) [facility] CypressQvzxjswPLKTPYUWDL9579-70-52 00:00:00 Test Item Value Reference Range Interpretation Comments Micro? (test code = Performed (11/28/2011 N Micro?) 19:00:00) [facility] CypressQbncwzvYPAQAXXNPQ9359-30-31 00:00:00 Test Item Value Reference Range Interpretation Comments UA Sq Epi (test code Occasional /LPF N = UA Sq Epi) (11/28/2011 19:00:00) [facility] HospitalLwphmbbXTFACEMYZB8117-10-71 00:00:00 Test Item Value Reference Range Interpretation Comments UA RBC (test None Seen See_Comment N [Automated mes pastor] code = UA RBC) (11/28/2011 The system ich 19:00:00) generated this result transmitted ref erence range: <=2. The reference range was not used to int erpret this result as normal/abnormal . [facility] HospitalDnyvspaNCXAXXJAKT6364-93-71 00:00:00 Test Item Value Reference Range Interpretation Comments UA WBC (test code Occasional See_Comment [Automate d message] The = UA WBC) system which ge nerated this result tra nsmitted reference range : <=5. The reference range was not used to interpr et this result as normal/abnormal . [facility] CypressRjdoknbGHBIALPIIJ0353-10-92 00:00:00 Test Item Value Reference Range Interpretation Comments UA Protein (test code Negative mg/dL N = UA Protein) (11/28/2011 19:00:00) [facility]2574[facility]:00 Test Item Value Reference Range Interpretation Comments UA pH (test code = UA pH) 7.0 1 5.0-8.0 N [facility] CypressGdxytthEWNNUCCLFR2677-45-67 00:00:00 Test Item Value Reference Range Interpretation Comments UA Spec Grav (test code = UA Spec 1.020 1 N Grav) [facility]SjvbdffUTKYTEEKKF0739-46-64 00:00:00 Test Item Value Reference Range Interpretation Comments UA Turbidity (test code = Clear (11/28/2011 N UA Turbidity) 19:00:00) [facility] ArlingtonCsiakkoGFVEZTHBPS9701-73-80 00:00:00 Test Item Value Reference Range Interpretation Comments UA Color (test code = Yellow *NA*(11/28/2011 UA Color) 19:00:00) [facility] ArlingtonWxvxcqwMDHLOTPWXK4676-43-54 00:00:00 Test Item Value Reference Range Interpretation Comments UA Urobilinogen (test code = UA 0.2 0.1-1.0 N Urobilinogen) [facility] ArlingtonMpwmfwbQJTUCAZNUR6477-23-19 00:00:00 Test Item Value Reference Range Interpretation Comments UA Blood (test code = Negative (11/28/2011 N UA Blood) 19:00:00) [facility] ArlingtonQyjbzncITDKQVAFBB7277-05-99 00:00:00 Test Item Value Reference Range Interpretation Comments UA Bili (test code = Negative *NA*(11/28/2011 UA Bili) 19:00:00) [facility] ArlingtonLdzxccwDCBYYTZGMI2326-18-30 00:00:00 Test Item Value Reference Range Interpretation Comments UA Ketones (test code = >=80 mg/dL A UA Ketones) *ABN*(11/28/2011 19:00:00) [facility] ArlingtonXpjkvjqPVWJJCXUMR6854-77-96 00:00:00 Test Item Value Reference Range Interpretation Comments UA Glucose (test code = >=1000 mg/dL A UA Glucose) *ABN*(11/28/2011 19:00:00) [facility] ArlingtonBznmrofUDYQADFHMB9087-93-85 00:00:00 Test Item Value Reference Range Interpretation Comments UA Nitrite (test code Negative (11/28/2011 N = UA Nitrite) 19:00:00) [facility] ArlingtonIikditaUASSQFFLJJ9382-96-92 00:00:00 Test Item Value Reference Range Interpretation Comments UA Leuk Est (test Negative (11/28/2011 N code = UA Leuk Est) 19:00:00) [facility]CzdxiqzNUKFSPLUQ6477-94-83 20:41:00 Test Item Value Reference Range Interpretation Comments pO2 Roberth (test code = pO2 Roberth) 60 20-49 H [facility] HospitalYnyqvbeLEJCUMPOX0020-10-96 20:41:00 Test Item Value Reference Range Interpretation Comments pCO2 Roberth (test code = pCO2 Roberth) 41 38-52 N [facility] HospitalEeihqduYBSUWTFAV4943-47-46 20:41:00 Test Item Value Reference Range Interpretation Comments pH Roberth (test code = pH Roberth) 7.45 7.28-7.42 H [facility] HospitalCisxfzhDKPBUIJBS8215-15-05 20:41:00 Test Item Value Reference Range Interpretation Comments Temp Roberth (test code = Temp Roberth) 37.0 [facility] HospitalJxfhuyjCQRAULQSR7158-59-78 20:41:00 Test Item Value Reference Range Interpretation Comments O2 Sat Roberth (test code = O2 Sat Roberth) 92.0 40.0-70.0 H [facility] HospitalPrxcgvkBPSUTZSDF6431-10-14 20:41:00 Test Item Value Reference Range Interpretation Comments BE Roberth (test code = 4 See_Comment H [Automa rohit message] The BE Roberth) system which ge nerated this result transmit rohit reference range : <=2. The reference range was not used to interpr et this result as reji l/abnormal. [facility] HospitalOmbiicvOMUPDBAXI8704-95-96 20:41:00 Test Item Value Reference Range Interpretation Comments HCO3 Roberth (test code = HCO3 Roberth) 28.5 22.0-26.0 H [facility] HospitalJlrdwntRWBLMEZEF9073-63-04 20:41:00 Test Item Value Reference Range Interpretation Comments pO2 Roberth (test code = pO2 Roberth) 60 20-49 H [facility] HospitalHjjeljcGBTWZZCJP7510-68-90 20:41:00 Test Item Value Reference Range Interpretation Comments pCO2 Roberth (test code = pCO2 Roberth) 41 38-52 N [facility] HospitalSagzgmnBKWMMPDPA0279-31-63 20:41:00 Test Item Value Reference Range Interpretation Comments pH Roberth (test code = pH Roberth) 7.45 7.28-7.42 H [facility] HospitalPmdmtfbSHQUIRUVB9577-74-62 20:41:00 Test Item Value Reference Range Interpretation Comments Temp Roberth (test code = Temp Roberth) 37.0 [facility] HospitalEbvxocpZEUEJASMH5021-77-72 20:41:00 Test Item Value Reference Range Interpretation Comments O2 Sat Roberth (test code = O2 Sat Roberth) 92.0 40.0-70.0 H [facility] HospitalZcroxxbQLSLVFHDG5562-22-17 20:41:00 Test Item Value Reference Range Interpretation Comments BE Roberth (test code = 4 See_Comment H [Automa rohit message] The BE Roberth) system which ge nerated this result transmit rohit reference range : <=2. The reference range was not used to interpr et this result as reji l/abnormal. [facility] HospitalIuzgkfiZLTLKBKSO9541-65-44 20:41:00 Test Item Value Reference Range Interpretation Comments HCO3 Roberth (test code = HCO3 Roberth) 28.5 22.0-26.0 H [facility] HospitalQottvftKGZQKVFAH3471-88-03 20:00:00 Test Item Value Reference Range Interpretation Comments Lactic Acid Lvl (test code = Lactic 1.6 0.5-2.2 N Acid Lvl) [facility] HospitalJfeazizYAOZUGQBP5232-76-94 20:00:00 Test Item Value Reference Range Interpretation Comments Lipase Lvl (test code = Lipase Lvl) 125 73-393 N [facility] HospitalByeepatDAOZGJUUR9084-33-94 20:00:00 Test Item Value Reference Range Interpretation Comments Albumin Lvl (test code = Albumin Lvl) 4.2 3.5-5.0 N [facility] HospitalZrtjytwPHWFSEWRC8910-30-12 20:00:00 Test Item Value Reference Range Interpretation Comments CO2 (test code = CO2) 23 24-32 L [facility] HospitalMyppqzuRFLFIPRMU9988-29-33 20:00:00 Test Item Value Reference Range Interpretation Comments Chloride Lvl (test code = Chloride Lvl) 98 95-109 N [facility] HospitalAunmegwDDUFDUQZZ4871-49-35 20:00:00 Test Item Value Reference Range Interpretation Comments Potassium Lvl (test code = Potassium 3.8 3.5-5.1 N Lvl) [facility] HospitalXzqfidkJLMMROUMM3479-17-46 20:00:00 Test Item Value Reference Range Interpretation Comments Sodium Lvl (test code = Sodium Lvl) 138 135-145 N [facility] HospitalHzeiaodBWWDMQAJT8822-48-13 20:00:00 Test Item Value Reference Range Interpretation Comments Creatinine Lvl (test code = Creatinine 0.7 0.5-1.4 N Lvl) [facility] HospitalBszyppoVCYHAVVGS6612-36-16 20:00:00 Test Item Value Reference Range Interpretation Comments BUN (test code = BUN) 9 7-22 N [facility] HospitalTzzmqouQRGTHVTMU2100-84-58 20:00:00 Test Item Value Reference Range Interpretation Comments Glucose Lvl (test code = Glucose Lvl) 269 70-99 H [facility] HospitalWfdshjaMCOMGNYJG2767-33-08 20:00:00 Test Item Value Reference Range Interpretation Comments B/C Ratio (test code = B/C Ratio) 13 6-25 N [facility] HospitalJjwkbmhZQPFGJTDZ4298-65-30 20:00:00 Test Item Value Reference Range Interpretation Comments AGAP (test code = AGAP) 20.8 10.0-20.0 H [facility] HospitalCcizhvdDCTECPHDM5843-07-25 20:00:00 Test Item Value Reference Range Interpretation Comments Calcium Lvl (test code = Calcium Lvl) 9.3 8.5-10.5 N [facility] HospitalJiqmeasPYRHLOUDI1051-20-52 20:00:00 Test Item Value Reference Range Interpretation Comments Total Protein (test code = Total 6.7 6.4-8.4 N Protein) [facility] HospitalUiuzopfSCZSGVRXW2601-10-39 20:00:00 Test Item Value Reference Range Interpretation Comments A/G Ratio (test code = A/G Ratio) 1.7 0.7-1.6 H [facility] HospitalCvoopvhBJKUUTJYJ3294-40-32 20:00:00 Test Item Value Reference Range Interpretation Comments Globulin (test code = Globulin) 2.5 2.0-4.0 N [facility] HospitalAcfkjotERAFSUYIH5232-34-25 20:00:00 Test Item Value Reference Range Interpretation Comments AST (test code = AST) 18 See_Comment N [Auto mated message] The system which ge nerated this result transmit rohit reference range : <=37. The reference range was not used to interpr et this result as reji l/abnormal. [facility] HospitalIqrvrtnHXDGZTHMU2309-90-09 20:00:00 Test Item Value Reference Range Interpretation Comments Alk Phos (test code = Alk Phos) 62 39-136 N [facility] HospitalHttcpcbOANVVWFEV3710-89-68 20:00:00 Test Item Value Reference Range Interpretation Comments ALT (test code = ALT) 32 See_Comment N [Auto mated message] The system which ge nerated this result transmit rohit reference range : <=65. The reference range was not used to interpr et this result as reji l/abnormal. [facility] HospitalDjumcgyFJUBVELYV1953-38-87 20:00:00 Test Item Value Reference Range Interpretation Comments Bili Total (test code = Bili Total) 0.7 0.2-1.3 N [facility] HospitalZokfwuaBHOJFAFNLV9293-68-43 20:00:00 Test Item Value Reference Range Interpretation Comments Anisocyte (test code = 1+ *ABN*(11/28/2011 A Anisocyte) 15:00:00) [facility] HospitalEugoemnXEMYBLTPPN4767-97-11 20:00:00 Test Item Value Reference Range Interpretation Comments Monocytes # (test code 0.1 See_Comment N [Aut omated message] The = Monocytes #) system which generated this result tra nsmitted reference range : <=0.8. The reference r leo was not used to int erpret this result as normal/abnormal . [facility] HospitalWctpfteDITLKIMILQ2578-58-68 20:00:00 Test Item Value Reference Range Interpretation Comments Eosinophils # (test code 0.0 See_Comment N [A utomated message] The = Eosinophils #) system whic h generated this result tra nsmitted reference range : <=0.5. The reference r leo was not used to int erpret this result as normal/abnormal . [facility] HospitalVxylbzwBQZPWLSDAE0821-07-83 20:00:00 Test Item Value Reference Range Interpretation Comments Basophils # (test code 0.0 See_Comment N [Aut omated message] The = Basophils #) system which generated this result tra nsmitted reference range : <=0.2. The reference r leo was not used to int erpret this result as normal/abnormal . [facility] HospitalKrbbeykDNYXCCKNJL7502-25-95 20:00:00 Test Item Value Reference Range Interpretation Comments Neut Vac (test code = Slight *ABN*(11/28/2011 A Neut Vac) 15:00:00) [facility] HospitalJjgavftDRPLEMUKKK4209-69-30 20:00:00 Test Item Value Reference Range Interpretation Comments Large Plt (test code = Slight *ABN*(11/28/2011 A Large Plt) 15:00:00) [facility] HospitalQtrvymmUZROPYQAGW1038-29-12 20:00:00 Test Item Value Reference Range Interpretation Comments Segs-Bands # (test code = Segs-Bands #) 5.7 1.5-8.1 N [facility] HospitalLijlaspDTEBCNSUXF9767-61-43 20:00:00 Test Item Value Reference Range Interpretation Comments Lymphocytes # (test code = Lymphocytes 0.8 1.0-5.5 L #) [facility] HospitalMzysmrrNGHLQGCZTP6289-42-16 20:00:00 Test Item Value Reference Range Interpretation Comments Eosinophils (test code = 0.2 See_Comment N [A utomated message] The Eosinophils) system which ge nerated this result tra nsmitted reference range : <=4.0. The reference r leo was not used to int erpret this result as normal/abnormal . [facility] HospitalFiimgasLNKNVPJXHA0573-08-14 20:00:00 Test Item Value Reference Range Interpretation Comments Basophils (test code = 0.0 See_Comment N [Aut omated message] The Basophils) system which ge nerated this result tra nsmitted reference range : <=1.0. The reference r leo was not used to int erpret this result as normal/abnormal . [facility] HospitalCtycpfzTWUXUWJMIT3209-01-75 20:00:00 Test Item Value Reference Range Interpretation Comments Monocytes (test code = Monocytes) 1.9 2.0-12.0 L [facility] HospitalCstcnwlFZQWLLDYYM5683-02-14 20:00:00 Test Item Value Reference Range Interpretation Comments Segs (test code = Segs) 86.2 45.0-75.0 H [facility] HospitalDyrixcoNWGJBNZPXP3422-20-46 20:00:00 Test Item Value Reference Range Interpretation Comments Lymphocytes (test code = Lymphocytes) 11.7 20.0-40.0 L [facility] HospitalMwdwrfyOZSEVFHZRX1386-88-24 20:00:00 Test Item Value Reference Range Interpretation Comments MPV (test code = MPV) 10.8 7.4-10.4 H [facility] HospitalIxiifjdKWQZJGERAO4156-65-79 20:00:00 Test Item Value Reference Range Interpretation Comments Platelet (test code = Platelet) 161 133-450 N [facility] HospitalIewmwetXFFVZPVAVY9621-22-80 20:00:00 Test Item Value Reference Range Interpretation Comments MCHC (test code = MCHC) 35.6 32.0-36.0 N [facility] HospitalBpsewbjEMXCAMZPVR9359-18-42 20:00:00 Test Item Value Reference Range Interpretation Comments RDW (test code = RDW) 12.4 11.5-14.5 N [facility] HospitalArnudzfURKMMHZQVB0387-24-30 20:00:00 Test Item Value Reference Range Interpretation Comments MCH (test code = MCH) 30.7 pg 27.0-31.0 N [facility] HospitalVzmnmhnNDROQJOUTD1279-64-05 20:00:00 Test Item Value Reference Range Interpretation Comments MCV (test code = MCV) 86.1 81.0-99.0 N [facility] HospitalVjycqgpYRZPBIVRLZ6937-26-83 20:00:00 Test Item Value Reference Range Interpretation Comments Hct (test code = Hct) 33.6 36.0-48.0 L [facility] HospitalArmzoenSDRKKQFUND9841-32-32 20:00:00 Test Item Value Reference Range Interpretation Comments Hgb (test code = Hgb) 12.0 12.0-16.0 N [facility] HospitalAmpymnlHGWOBKTXPW5603-22-93 20:00:00 Test Item Value Reference Range Interpretation Comments RBC (test code = RBC) 3.90 4.20-5.40 L [facility] HospitalDsehmtrKJFVFIKGPN3126-82-55 20:00:00 Test Item Value Reference Range Interpretation Comments WBC (test code = WBC) 6.6 3.7-10.4 N [facility] HospitalXzwilcaHHGLHTNCU7329-68-84 20:00:00 Test Item Value Reference Range Interpretation Comments Lactic Acid Lvl (test code = Lactic 1.6 0.5-2.2 N Acid Lvl) [facility] HospitalIybkmecWQOHQMVRU4838-46-48 20:00:00 Test Item Value Reference Range Interpretation Comments Lipase Lvl (test code = Lipase Lvl) 125 73-393 N [facility] HospitalQjdiusnTHNSGGXFZ7974-17-68 20:00:00 Test Item Value Reference Range Interpretation Comments Albumin Lvl (test code = Albumin Lvl) 4.2 3.5-5.0 N [facility] HospitalUscajvqPRAJUNXAB2494-88-90 20:00:00 Test Item Value Reference Range Interpretation Comments CO2 (test code = CO2) 23 24-32 L [facility] HospitalGhybpskIQQXQKXYO8417-55-03 20:00:00 Test Item Value Reference Range Interpretation Comments Chloride Lvl (test code = Chloride Lvl) 98 95-109 N [facility] HospitalBmpcmdrIKMVEPBKJ0045-87-32 20:00:00 Test Item Value Reference Range Interpretation Comments Potassium Lvl (test code = Potassium 3.8 3.5-5.1 N Lvl) [facility] HospitalIrbezpdYXIKNBDKR9925-06-80 20:00:00 Test Item Value Reference Range Interpretation Comments Sodium Lvl (test code = Sodium Lvl) 138 135-145 N [facility] HospitalZqtyjjgTEYWDYGKZ4582-02-35 20:00:00 Test Item Value Reference Range Interpretation Comments Creatinine Lvl (test code = Creatinine 0.7 0.5-1.4 N Lvl) [facility] HospitalVsqhbahUWZZASCNO0735-65-82 20:00:00 Test Item Value Reference Range Interpretation Comments BUN (test code = BUN) 9 7-22 N [facility] HospitalSxcmqlyDOZTSOSSB5068-73-93 20:00:00 Test Item Value Reference Range Interpretation Comments Glucose Lvl (test code = Glucose Lvl) 269 70-99 H [facility] HospitalWcfvhorAOWYPBHKM2825-06-92 20:00:00 Test Item Value Reference Range Interpretation Comments B/C Ratio (test code = B/C Ratio) 13 6-25 N [facility] HospitalLqxgjhvEVGDFMRWS8305-17-15 20:00:00 Test Item Value Reference Range Interpretation Comments AGAP (test code = AGAP) 20.8 10.0-20.0 H [facility] HospitalEmtegwdVPHIYHDHU8009-94-08 20:00:00 Test Item Value Reference Range Interpretation Comments Calcium Lvl (test code = Calcium Lvl) 9.3 8.5-10.5 N [facility] HospitalQicdgxkMONIOOYNC3271-86-40 20:00:00 Test Item Value Reference Range Interpretation Comments Total Protein (test code = Total 6.7 6.4-8.4 N Protein) [facility] HospitalChqjiotEKCOFUIWZ3830-21-31 20:00:00 Test Item Value Reference Range Interpretation Comments A/G Ratio (test code = A/G Ratio) 1.7 0.7-1.6 H [facility] HospitalJreqmfuHVLCSQCRO3634-49-57 20:00:00 Test Item Value Reference Range Interpretation Comments Globulin (test code = Globulin) 2.5 2.0-4.0 N [facility] HospitalUqrtwjtQEFQGDACS8741-45-06 20:00:00 Test Item Value Reference Range Interpretation Comments AST (test code = AST) 18 See_Comment N [Auto mated message] The system which ge nerated this result transmit rohit reference range : <=37. The reference range was not used to interpr et this result as reji l/abnormal. [facility] HospitalGsbtuqtJAFHEIMFJ1644-00-75 20:00:00 Test Item Value Reference Range Interpretation Comments Alk Phos (test code = Alk Phos) 62 39-136 N [facility] HospitalOexvrtyKWIBFUQTW6806-62-62 20:00:00 Test Item Value Reference Range Interpretation Comments ALT (test code = ALT) 32 See_Comment N [Auto mated message] The system which ge nerated this result transmit rohit reference range : <=65. The reference range was not used to interpr et this result as reji l/abnormal. [facility] HospitalXfowxjyZNLPSFDXJ4941-07-93 20:00:00 Test Item Value Reference Range Interpretation Comments Bili Total (test code = Bili Total) 0.7 0.2-1.3 N [facility] HospitalIvlvodjPLBNKFFCFC2868-55-78 20:00:00 Test Item Value Reference Range Interpretation Comments Anisocyte (test code = 1+ *ABN*(11/28/2011 A Anisocyte) 15:00:00) [facility] HospitalLldebkiBJTPAPAAHI6318-17-24 20:00:00 Test Item Value Reference Range Interpretation Comments Monocytes # (test code 0.1 See_Comment N [Aut omated message] The = Monocytes #) system which generated this result tra nsmitted reference range : <=0.8. The reference r leo was not used to int erpret this result as normal/abnormal . [facility] HospitalLydbnyuXVIWXITSCZ3443-04-77 20:00:00 Test Item Value Reference Range Interpretation Comments Eosinophils # (test code 0.0 See_Comment N [A utomated message] The = Eosinophils #) system whic h generated this result tra nsmitted reference range : <=0.5. The reference r leo was not used to int erpret this result as normal/abnormal . [facility] HospitalHeeumwhQZYWGJRVNB5305-92-22 20:00:00 Test Item Value Reference Range Interpretation Comments Basophils # (test code 0.0 See_Comment N [Aut omated message] The = Basophils #) system which generated this result tra nsmitted reference range : <=0.2. The reference r leo was not used to int erpret this result as normal/abnormal . [facility] HospitalOyelhufACQBJNKRKD8891-43-50 20:00:00 Test Item Value Reference Range Interpretation Comments Neut Vac (test code = Slight *ABN*(11/28/2011 A Neut Vac) 15:00:00) [facility] HospitalZitdvphFNUCAIOMEP4120-98-04 20:00:00 Test Item Value Reference Range Interpretation Comments Large Plt (test code = Slight *ABN*(11/28/2011 A Large Plt) 15:00:00) [facility] HospitalYficiofTJAGEIZQLP8313-30-26 20:00:00 Test Item Value Reference Range Interpretation Comments Segs-Bands # (test code = Segs-Bands #) 5.7 1.5-8.1 N [facility] HospitalQptsujcTAATXQCOGR3838-64-24 20:00:00 Test Item Value Reference Range Interpretation Comments Lymphocytes # (test code = Lymphocytes 0.8 1.0-5.5 L #) [facility] HospitalIvisxrfHEIBVHNKRB3732-02-04 20:00:00 Test Item Value Reference Range Interpretation Comments Eosinophils (test code = 0.2 See_Comment N [A utomated message] The Eosinophils) system which ge nerated this result tra nsmitted reference range : <=4.0. The reference r leo was not used to int erpret this result as normal/abnormal . [facility] HospitalLtbpsudXNSERTKCGF6063-87-28 20:00:00 Test Item Value Reference Range Interpretation Comments Basophils (test code = 0.0 See_Comment N [Aut omated message] The Basophils) system which ge nerated this result tra nsmitted reference range : <=1.0. The reference r leo was not used to int erpret this result as normal/abnormal . [facility] HospitalNmffuwhUOYZVKQIUO7193-94-35 20:00:00 Test Item Value Reference Range Interpretation Comments Monocytes (test code = Monocytes) 1.9 2.0-12.0 L [facility] HospitalTzoogrlIXCSUEKVUC1256-40-00 20:00:00 Test Item Value Reference Range Interpretation Comments Segs (test code = Segs) 86.2 45.0-75.0 H [facility] HospitalYpvrlrlTZYYWFHRAR2391-78-80 20:00:00 Test Item Value Reference Range Interpretation Comments Lymphocytes (test code = Lymphocytes) 11.7 20.0-40.0 L [facility] HospitalLfmiwjoKGGSGYWHBT2577-04-95 20:00:00 Test Item Value Reference Range Interpretation Comments MPV (test code = MPV) 10.8 7.4-10.4 H [facility] HospitalWwsxiyzATTZMKSOQH1530-81-28 20:00:00 Test Item Value Reference Range Interpretation Comments Platelet (test code = Platelet) 161 133-450 N [facility] HospitalUtsgqcoEELBXRLTAD7919-69-25 20:00:00 Test Item Value Reference Range Interpretation Comments MCHC (test code = MCHC) 35.6 32.0-36.0 N [facility] HospitalFlymryjNXDISEGGPV1756-58-96 20:00:00 Test Item Value Reference Range Interpretation Comments RDW (test code = RDW) 12.4 11.5-14.5 N [facility] HospitalKozjatyDYJMFFTRUW8362-43-39 20:00:00 Test Item Value Reference Range Interpretation Comments MCH (test code = MCH) 30.7 pg 27.0-31.0 N [facility] HospitalGatwttuCJSQEQSEKS8944-42-76 20:00:00 Test Item Value Reference Range Interpretation Comments MCV (test code = MCV) 86.1 81.0-99.0 N [facility] HospitalPohtbjcODDRQQNKIT3415-24-60 20:00:00 Test Item Value Reference Range Interpretation Comments Hct (test code = Hct) 33.6 36.0-48.0 L [facility] HospitalAxvnnhgNYAQCCSBMR9151-37-58 20:00:00 Test Item Value Reference Range Interpretation Comments Hgb (test code = Hgb) 12.0 12.0-16.0 N [facility] HospitalEnkvolbKRWCAXVPNF6216-76-76 20:00:00 Test Item Value Reference Range Interpretation Comments RBC (test code = RBC) 3.90 4.20-5.40 L [facility] HospitalHuuseyuMPDLMECUYJ7387-10-40 20:00:00 Test Item Value Reference Range Interpretation Comments WBC (test code = WBC) 6.6 3.7-10.4 N [facility] HospitalYveqsdqEAUMOZJDI8711-82-61 19:51:00 Test Item Value Reference Range Interpretation Comments UDS Note (test code = See Note UDS Note) 5*NA*(11/28/2011 14:51:00) [facility] HospitalSlcnbspJWZRROHUI6085-37-24 19:51:00 Test Item Value Reference Range Interpretation Comments U Phencyc Scr (test Negative code = U Phencyc Scr) *NA*(11/28/2011 14:51:00) [facility] HospitalZbgvdexCAJZGHHDK9370-08-51 19:51:00 Test Item Value Reference Range Interpretation Comments U Kelly Scr (test code Negative *NA*(11/28/2011 = U Kelly Scr) 14:51:00) [facility] HospitalBhbqosaHVTZHMNPB5917-88-29 19:51:00 Test Item Value Reference Range Interpretation Comments U Amph Scr (test code Negative *NA*(11/28/2011 = U Amph Scr) 14:51:00) [facility] HospitalHdomhljHTSPSDNNO1109-31-87 19:51:00 Test Item Value Reference Range Interpretation Comments U Opiate Scr (test Negative code = U Opiate Scr) *NA*(11/28/2011 14:51:00) [facility] HospitalFnwcshmMPZLHXFHT6710-38-83 19:51:00 Test Item Value Reference Range Interpretation Comments U Cocaine Scr (test Negative code = U Cocaine Scr) *NA*(11/28/2011 14:51:00) [facility] HospitalYftdrezEQZEBLDSC8965-87-22 19:51:00 Test Item Value Reference Range Interpretation Comments U Cannab Scr (test Negative code = U Cannab Scr) *NA*(11/28/2011 14:51:00) [facility] [facility]rhrozdSNMKJKQZX7761-50-48 19:51:00 Test Item Value Reference Range Interpretation Comments U Benzodia Scr (test Negative code = U Benzodia Scr) *NA*(11/28/2011 14:51:00) [facility]IxeasdwLEQNIUVJO1005-14-20 19:51:00 Test Item Value Reference Range Interpretation Comments UDS Note (test code = See Note UDS Note) 5*NA*(11/28/2011 14:51:00) [facility] HospitalVuxqvlqXQSZHDJTQ1034-10-58 19:51:00 Test Item Value Reference Range Interpretation Comments U Phencyc Scr (test Negative code = U Phencyc Scr) *NA*(11/28/2011 14:51:00) [facility] HospitalVqxrjsdUKREFOABU6072-27-64 19:51:00 Test Item Value Reference Range Interpretation Comments U Kelly Scr (test code Negative *NA*(11/28/2011 = U Kelly Scr) 14:51:00) [facility] HospitalMsfgmghECJPLLANZ0229-23-37 19:51:00 Test Item Value Reference Range Interpretation Comments U Amph Scr (test code Negative *NA*(11/28/2011 = U Amph Scr) 14:51:00) [facility] HospitalWsfgnklZLCFRTZNU6613-90-63 19:51:00 Test Item Value Reference Range Interpretation Comments U Opiate Scr (test Negative code = U Opiate Scr) *NA*(11/28/2011 14:51:00) [facility] HospitalFgrigncQEGCNASAZ7119-54-57 19:51:00 Test Item Value Reference Range Interpretation Comments U Cocaine Scr (test Negative code = U Cocaine Scr) *NA*(11/28/2011 14:51:00) [facility] HospitalAaafeniFOVPQDPJJ8792-69-73 19:51:00 Test Item Value Reference Range Interpretation Comments U Cannab Scr (test Negative code = U Cannab Scr) *NA*(11/28/2011 14:51:00) [facility] HospitalEvvtzsdHWPRSLZBN1279-62-39 19:51:00 Test Item Value Reference Range Interpretation Comments U Benzodia Scr (test Negative code = U Benzodia Scr) *NA*(11/28/2011 14:51:00) [facility] GLUCOSE NMLAWZR6555-14-82 16:20:00 Test Item Value Reference Range Interpretation Comments Comment1 (test code = Comment1) Notify RN/MD [facility] GLUCOSE WKUXNXH9455-04-62 16:20:00 Test Item Value Reference Range Interpretation Comments Gluc POC Lifscn (test code = Gluc POC 328 70-99 H Lifscn) [facility] GLUCOSE MZIOCIY9869-18-23 16:20:00 Test Item Value Reference Range Interpretation Comments Comment1 (test code = Comment1) Notify RN/ [facility] GLUCOSE HPIOYBE3072-54-95 16:20:00 Test Item Value Reference Range Interpretation Comments Gluc POC Lifscn (test code = Gluc POC 328 70-99 H Lifscn) [facility] HospitalDgmoqnuNHUYEXNAF2328-57-02 15:30:00 Test Item Value Reference Range Interpretation Comments U Preg (test code = U Negative (09/18/2011 N Preg) 10:30:00) [facility]ielWGGBXUZDKJ9693-81-53 15:30:00 Test Item Value Reference Range Interpretation Comments UA WBC (test code = UA None Seen (09/18/2011 N WBC) 10:30:00) [facility] HospitalRdoyhzwWSVDSGVGDK9648-15-37 15:30:00 Test Item Value Reference Range Interpretation Comments UA RBC (test None Seen See_Comment N [Automated mes pastor] code = UA RBC) (09/18/2011 The system ich 10:30:00) generated this result transmitted ref erence range: <=2. The reference range was not used to int erpret this result as normal/abnormal . [facility]leKkssjbiOFDWROGQSN4789-74-64 15:30:00 Test Item Value Reference Range Interpretation Comments UA Bacteria (test code = None Seen (09/18/2011 N UA Bacteria) 10:30:00) [facility] AzleCslybfdVCUBLTNVTJ3148-00-57 15:30:00 Test Item Value Reference Range Interpretation Comments UA Amorph Destiny (test Few /HPF A code = UA Amorph Destiny) *ABN*(09/18/2011 10:30:00) [facility]NlnkszvSKHKABJDJN9558-88-54 15:30:00 Test Item Value Reference Range Interpretation Comments Micro? (test code = Performed (09/18/2011 N Micro?) 10:30:00) [facility] ArlingtonRlidftiKYKNIHPTKM1400-62-02 15:30:00 Test Item Value Reference Range Interpretation Comments UA Sq Epi (test code = Rare /LPF (09/18/2011 N UA Sq Epi) 10:30:00) [facility] ArlingtonRgmtnopZAKMWTKMOH5060-81-26 15:30:00 Test Item Value Reference Range Interpretation Comments UA Ketones (test code = 15 mg/dL A UA Ketones) *ABN*(09/18/2011 10:30:00) [facility] ArlingtonLgkafvqFQTDZQXKQY4685-67-04 15:30:00 Test Item Value Reference Range Interpretation Comments UA Glucose (test code = >=1000 mg/dL A UA Glucose) *ABN*(09/18/2011 10:30:00) [facility] ArlingtonXckkwdfJMUKBCZGDY4954-87-95 15:30:00 Test Item Value Reference Range Interpretation Comments UA Protein (test code = Trace A UA Protein) *ABN*(09/18/2011 10:30:00) [facility] ArlingtonNpvrwvgHYYINNFBON5275-23-75 15:30:00 Test Item Value Reference Range Interpretation Comments UA Urobilinogen (test code = UA 0.2 0.1-1.0 N Urobilinogen) [facility] ArlingtonZrkfmyfQHHAQBUPWU2688-12-01 15:30:00 Test Item Value Reference Range Interpretation Comments UA Blood (test code = Negative (09/18/2011 N UA Blood) 10:30:00) [facility] ArlingtonElxhbmdRPWSCHJQPF4203-55-45 15:30:00 Test Item Value Reference Range Interpretation Comments UA Bili (test code = Negative *NA*(09/18/2011 UA Bili) 10:30:00) [facility] ArlingtonTjyhkbeMYJDRJTIJN9168-79-14 15:30:00 Test Item Value Reference Range Interpretation Comments UA Leuk Est (test Negative (09/18/2011 N code = UA Leuk Est) 10:30:00) [facility]OvfkjsyWRAFTLZZVO7495-17-93 15:30:00 Test Item Value Reference Range Interpretation Comments UA Nitrite (test code Negative (09/18/2011 N = UA Nitrite) 10:30:00) [facility]ressJipwgfxJILUTSKVMM4154-91-20 15:30:00 Test Item Value Reference Range Interpretation Comments UA pH (test code = UA pH) 7.5 1 5.0-8.0 N [facility] CypressFgurpdbLLKNAJOAKE3840-96-30 15:30:00 Test Item Value Reference Range Interpretation Comments UA Spec Grav (test code = UA Spec 1.010 1 N Grav) [facility] CypressBeoptioODNMSGKGLG4771-70-27 15:30:00 Test Item Value Reference Range Interpretation Comments UA Turbidity (test code Slight Cloudy N = UA Turbidity) (09/18/2011 10:30:00) [facility] HospitalCchdeneYGWCZZKHEP5925-19-05 15:30:00 Test Item Value Reference Range Interpretation Comments UA Color (test code = Yellow *NA*(09/18/2011 UA Color) 10:30:00) [facility] CypressLisyfhcSFZIAANMQ1417-37-85 15:30:00 Test Item Value Reference Range Interpretation Comments U Preg (test code = U Negative (09/18/2011 N Preg) 10:30:00) [facility] CypressAvruyazOKGORBPCIA0135-47-54 15:30:00 Test Item Value Reference Range Interpretation Comments UA WBC (test code = UA None Seen (09/18/2011 N WBC) 10:30:00) [facility] CypressEcfyprmBUPXOLFUKT3398-33-80 15:30:00 Test Item Value Reference Range Interpretation Comments UA RBC (test None Seen See_Comment N [Automated mes pastor] code = UA RBC) (09/18/2011 The system wh ich 10:30:00) generated this result transmitted ref erence range: <=2. The reference range was not used to int erpret this result as normal/abnormal . [facility] CypressIlsiqhgMNPACVKACC2432-22-93 15:30:00 Test Item Value Reference Range Interpretation Comments UA Bacteria (test code = None Seen (09/18/2011 N UA Bacteria) 10:30:00) [facility] CypressGfrwkgnRXTRLBNRFP6407-44-98 15:30:00 Test Item Value Reference Range Interpretation Comments UA Amorph Destiny (test Few /HPF A code = UA Amorph Destiny) *ABN*(09/18/2011 10:30:00) [facility] ArlingtonMddxifaOWZLLZJBUF0495-18-08 15:30:00 Test Item Value Reference Range Interpretation Comments Micro? (test code = Performed (09/18/2011 N Micro?) 10:30:00) [facility] ArlingtonYjyjppnSFTLLQWJKA7551-04-12 15:30:00 Test Item Value Reference Range Interpretation Comments UA Sq Epi (test code = Rare /LPF (09/18/2011 N UA Sq Epi) 10:30:00) [facility] ArlingtonEbutqrrOVRJOOXNGS7768-44-19 15:30:00 Test Item Value Reference Range Interpretation Comments UA Ketones (test code = 15 mg/dL A UA Ketones) *ABN*(09/18/2011 10:30:00) [facility] ArlingtonKobjonoAERSGOIYHL6445-14-16 15:30:00 Test Item Value Reference Range Interpretation Comments UA Glucose (test code = >=1000 mg/dL A UA Glucose) *ABN*(09/18/2011 10:30:00) [facility] ArlingtonUxbauzrOLTJHIMYWC5091-48-92 15:30:00 Test Item Value Reference Range Interpretation Comments UA Protein (test code = Trace A UA Protein) *ABN*(09/18/2011 10:30:00) [facility] ArlingtonIbbcakdWHFECHUCLA7021-35-50 15:30:00 Test Item Value Reference Range Interpretation Comments UA Urobilinogen (test code = UA 0.2 0.1-1.0 N Urobilinogen) [facility] ArlingtonRrmuhslRYYDUORZVV1865-13-37 15:30:00 Test Item Value Reference Range Interpretation Comments UA Blood (test code = Negative (09/18/2011 N UA Blood) 10:30:00) [facility] ArlingtonQrrsqiqEOOQDOWUEX4679-77-52 15:30:00 Test Item Value Reference Range Interpretation Comments UA Bili (test code = Negative *NA*(09/18/2011 UA Bili) 10:30:00) [facility] ArlingtonPqeuhtoVCFPXLKCJQ1801-51-69 15:30:00 Test Item Value Reference Range Interpretation Comments UA Leuk Est (test Negative (09/18/2011 N code = UA Leuk Est) 10:30:00) [facility] ArlingtonExqzdogGDCLHPFXXX8570-60-19 15:30:00 Test Item Value Reference Range Interpretation Comments UA Nitrite (test code Negative (09/18/2011 N = UA Nitrite) 10:30:00) [facility]leCqcfsgzZYJUSDICBV3086-78-64 15:30:00 Test Item Value Reference Range Interpretation Comments UA pH (test code = UA pH) 7.5 1 5.0-8.0 N [facility] AzleQeegznnBERSQIMXJA1961-19-28 15:30:00 Test Item Value Reference Range Interpretation Comments UA Spec Grav (test code = UA Spec 1.010 1 N Grav) [facility] AzleHrbnlhaZZPQXCAOFU8603-76-18 15:30:00 Test Item Value Reference Range Interpretation Comments UA Turbidity (test code Slight Cloudy N = UA Turbidity) (09/18/2011 10:30:00) [facility] ArlingtonTkqbyfkDYXJGRTNXC4679-01-62 15:30:00 Test Item Value Reference Range Interpretation Comments UA Color (test code = Yellow *NA*(09/18/2011 UA Color) 10:30:00) [facility] HospitalGuyjppwKLACIVNBF7830-47-27 14:07:00 Test Item Value Reference Range Interpretation Comments Phosphorus (test code = Phosphorus) 4.4 2.5-4.5 N [facility] HospitalKglcyzzITTQXIKFL9575-79-61 14:07:00 Test Item Value Reference Range Interpretation Comments Magnesium Lvl (test code = Magnesium 1.6 1.8-2.4 L Lvl) [facility] HospitalRzerctqNLTSCOAEO3789-21-33 14:07:00 Test Item Value Reference Range Interpretation Comments Phosphorus (test code = Phosphorus) 4.4 2.5-4.5 N [facility] HospitalKlleytjCVPQASIEF4764-85-13 14:07:00 Test Item Value Reference Range Interpretation Comments Magnesium Lvl (test code = Magnesium 1.6 1.8-2.4 L Lvl) [facility] GLUCOSE TECQYNN5831-03-36 14:01:00 Test Item Value Reference Range Interpretation Comments Gluc POC Lifscn (test code = Gluc POC no gt 70-99 A Lifscn) [facility] GLUCOSE ULLTLQG4285-88-98 14:01:00 Test Item Value Reference Range Interpretation Comments Gluc POC Lifscn (test code = Gluc POC no gt 70-99 A Lifscn) [facility] HospitalVrxbuisKSCNFRNNS4283-03-24 13:52:00 Test Item Value Reference Range Interpretation Comments pO2 Roberth (test code = pO2 Roberth) 24 20-49 N [facility] HospitalRqjixesHSEHNEPEF4890-41-43 13:52:00 Test Item Value Reference Range Interpretation Comments HCO3 Roberth (test code = HCO3 Roberth) 32.0 22.0-26.0 H [facility] HospitalHzbfwdvASRPNHDRR7583-95-04 13:52:00 Test Item Value Reference Range Interpretation Comments pCO2 Roberth (test code = pCO2 Roberth) 44 38-52 N [facility] HospitalVtpumejAAZRKXEJM7880-12-19 13:52:00 Test Item Value Reference Range Interpretation Comments BE Roberth (test code = 7 See_Comment H [Automa rohit message] The BE Roberth) system which ge nerated this result transmit rohit reference range : <=2. The reference range was not used to interpr et this result as reji l/abnormal. [facility] HospitalUjohypyFUTFYVLVZ0166-61-25 13:52:00 Test Item Value Reference Range Interpretation Comments O2 Sat Roberth (test code = O2 Sat Roberth) 48.0 40.0-70.0 N [facility] HospitalScffsfoEPJXKZKAQ9480-50-98 13:52:00 Test Item Value Reference Range Interpretation Comments Temp Roberth (test code = Temp Roberth) 37.0 [facility] HospitalXeucjxtGEWJUXGIA1435-03-88 13:52:00 Test Item Value Reference Range Interpretation Comments pH Roberth (test code = pH Roberth) 7.47 7.28-7.42 H [facility] HospitalWewfzfsPPYKNLMSF8924-13-27 13:52:00 Test Item Value Reference Range Interpretation Comments Calcium Lvl (test code = Calcium Lvl) 10.1 8.5-10.5 N [facility] HospitalAgjwqrhCYOXAOTAU9305-46-16 13:52:00 Test Item Value Reference Range Interpretation Comments Chloride Lvl (test code = Chloride Lvl) 92 95-109 L [facility] HospitalEqakpisVQVOTMQDV2490-37-66 13:52:00 Test Item Value Reference Range Interpretation Comments CO2 (test code = CO2) 30 24-32 N [facility] HospitalEzlpsalESDVCSVZY2044-54-19 13:52:00 Test Item Value Reference Range Interpretation Comments Potassium Lvl (test code = Potassium 3.5 3.5-5.1 N Lvl) [facility] HospitalTbxpfraRSOAGRFID2820-74-75 13:52:00 Test Item Value Reference Range Interpretation Comments Sodium Lvl (test code = Sodium Lvl) 133 135-145 L [facility] HospitalFsujyydPKQWJSWYV1222-25-77 13:52:00 Test Item Value Reference Range Interpretation Comments Creatinine Lvl (test code = Creatinine 1.3 0.5-1.4 N Lvl) [facility] HospitalFlxyuyzUOOXEBGOF0445-37-25 13:52:00 Test Item Value Reference Range Interpretation Comments Glucose Lvl (test code = Glucose Lvl) 383 70-99 H [facility] HospitalQxkpqmuWUMGJRIMX3435-30-18 13:52:00 Test Item Value Reference Range Interpretation Comments BUN (test code = BUN) 17 7-22 N [facility] HospitalMutlalwGEVQHJSGX6244-53-10 13:52:00 Test Item Value Reference Range Interpretation Comments AGAP (test code = AGAP) 14.5 10.0-20.0 N [facility] HospitalZamcnnoCGSRAUDBPO1190-01-46 13:52:00 Test Item Value Reference Range Interpretation Comments MPV (test code = MPV) 12.0 7.4-10.4 H [facility] HospitalKehosdhKHNETGYEOO4313-28-92 13:52:00 Test Item Value Reference Range Interpretation Comments Platelet (test code = Platelet) 226 133-450 N [facility] HospitalAuvvqwtKBKEYKCYLG3457-79-46 13:52:00 Test Item Value Reference Range Interpretation Comments MCHC (test code = MCHC) 33.7 32.0-36.0 N [facility] HospitalTwrdapvIIKCKJPDPP1027-77-03 13:52:00 Test Item Value Reference Range Interpretation Comments MCH (test code = MCH) 28.5 pg 27.0-31.0 N [facility] HospitalMoiovxuZOHWJYEKIV1425-40-70 13:52:00 Test Item Value Reference Range Interpretation Comments RDW (test code = RDW) 15.1 11.5-14.5 H [facility] HospitalXelqjsyZBUPDROCDJ6269-42-94 13:52:00 Test Item Value Reference Range Interpretation Comments MCV (test code = MCV) 84.6 81.0-99.0 N [facility] HospitalSqahoqrENBFRNWSFN0642-34-80 13:52:00 Test Item Value Reference Range Interpretation Comments Hct (test code = Hct) 36.4 36.0-48.0 N [facility] HospitalMnyhrxuINDZJCLUFD1963-65-13 13:52:00 Test Item Value Reference Range Interpretation Comments Hgb (test code = Hgb) 12.3 12.0-16.0 N [facility] HospitalSadgpyhOKZIHZLLEQ3069-93-76 13:52:00 Test Item Value Reference Range Interpretation Comments RBC (test code = RBC) 4.30 4.20-5.40 N [facility] HospitalSssuvijMFTMEELZNV6991-06-77 13:52:00 Test Item Value Reference Range Interpretation Comments WBC (test code = WBC) 11.7 3.7-10.4 H [facility] HospitalEzgilcaLKORAWHVRI4410-14-35 13:52:00 Test Item Value Reference Range Interpretation Comments Monocytes (test code = Monocytes) 2.9 2.0-12.0 N [facility] HospitalWhcphqlNPZFWIMOKC3818-80-98 13:52:00 Test Item Value Reference Range Interpretation Comments Eosinophils (test code = 0.2 See_Comment N [A utomated message] The Eosinophils) system which ge nerated this result tra nsmitted reference range : <=4.0. The reference r leo was not used to int erpret this result as normal/abnormal . [facility] HospitalKckzfkzKXDFUISDBE4700-35-68 13:52:00 Test Item Value Reference Range Interpretation Comments Basophils (test code = 0.0 See_Comment N [Aut omated message] The Basophils) system which ge nerated this result tra nsmitted reference range : <=1.0. The reference r leo was not used to int erpret this result as normal/abnormal . [facility] HospitalCxlddncYKTGGUEYYZ6570-08-68 13:52:00 Test Item Value Reference Range Interpretation Comments Eosinophils # (test code 0.0 See_Comment N [A utomated message] The = Eosinophils #) system [facility] h generated this result tra nsmitted reference range : <=0.5. The reference r leo was not used to int erpret this result as normal/abnormal . [facility] HospitalZkoutryVDOKETAXQO5225-11-37 13:52:00 Test Item Value Reference Range Interpretation Comments Monocytes # (test code 0.3 See_Comment N [Aut omated message] The = Monocytes #) system which generated this result tra nsmitted reference range : <=0.8. The reference r leo was not used to int erpret this result as normal/abnormal . [facility] HospitalQsyohwsXANPOCYQDC5732-48-50 13:52:00 Test Item Value Reference Range Interpretation Comments Segs (test code = Segs) 92.0 45.0-75.0 H [facility] HospitalBbaginiOSBKOTMNDG5836-91-70 13:52:00 Test Item Value Reference Range Interpretation Comments Lymphocytes (test code = Lymphocytes) 4.9 20.0-40.0 L [facility] HospitalAllrhzdNTHDGSHSHO2501-80-44 13:52:00 Test Item Value Reference Range Interpretation Comments Spherocyte (test code = Rare A Spherocyte) *ABN*(09/18/2011 08:52:00) [facility] HospitalMylybrbONWERGWYFV5413-44-19 13:52:00 Test Item Value Reference Range Interpretation Comments Large Plt (test code = Slight *ABN*(09/18/2011 A Large Plt) 08:52:00) [facility] HospitalToopnpyTHVVZZCTFZ8053-51-14 13:52:00 Test Item Value Reference Range Interpretation Comments Microcyte (test code = 1+ *ABN*(09/18/2011 A Microcyte) 08:52:00) [facility] HospitalAcprmlnBADGBFNDCD8123-20-10 13:52:00 Test Item Value Reference Range Interpretation Comments Schistocyte (test code = Schistocyte) Rare [facility] HospitalXbbtqbvSZJVXTZPNH3580-49-75 13:52:00 Test Item Value Reference Range Interpretation Comments Macrocyte (test code = 1+ *ABN*(09/18/2011 A Macrocyte) 08:52:00) [facility] HospitalOumxfkfTIMDLLETDJ1591-51-01 13:52:00 Test Item Value Reference Range Interpretation Comments Lymphocytes # (test code = Lymphocytes 0.6 1.0-5.5 L #) [facility] HospitalVijsmbhOIHVASRUHE2150-51-77 13:52:00 Test Item Value Reference Range Interpretation Comments Segs-Bands # (test code = Segs-Bands #) 10.8 1.5-8.1 H [facility] HospitalWctuvjtQYPHTHAEWA7245-34-69 13:52:00 Test Item Value Reference Range Interpretation Comments Basophils # (test code 0.0 See_Comment N [Aut omated message] The = Basophils #) system which generated this result tra nsmitted reference range : <=0.2. The reference r leo was not used to int erpret this result as normal/abnormal . [facility] HospitalOvrsugvADQMLRCYVI5283-41-13 13:52:00 Test Item Value Reference Range Interpretation Comments Anisocyte (test code = 1+ *ABN*(09/18/2011 A Anisocyte) 08:52:00) [facility]hssprkMUZUVYPBUN8378-54-99 13:52:00 Test Item Value Reference Range Interpretation Comments CDC-HIV 1/2 Ab (test Negative *NA*(09/18/2011 code = CDC-HIV 1/2 08:52:00) Ab) [facility] HospitalHwklirhPAGBOWTSS6759-63-42 13:52:00 Test Item Value Reference Range Interpretation Comments pO2 Roberth (test code = pO2 Roberth) 24 20-49 N [facility] HospitalDebynjzHVXHGCNHN5766-76-16 13:52:00 Test Item Value Reference Range Interpretation Comments HCO3 Roberth (test code = HCO3 Roberth) 32.0 22.0-26.0 H [facility] HospitalEbryenjWOGLZIVKD0683-48-09 13:52:00 Test Item Value Reference Range Interpretation Comments pCO2 Roberth (test code = pCO2 Roberth) 44 38-52 N [facility] HospitalZwqrpjbFOUBNPQJF9821-24-10 13:52:00 Test Item Value Reference Range Interpretation Comments BE Roberth (test code = 7 See_Comment H [Automa rohit message] The BE Roberth) system which ge nerated this result transmit rohit reference range : <=2. The reference range was not used to interpr et this result as reji l/abnormal. [facility] HospitalSparlccMAFFHDJBA2297-60-21 13:52:00 Test Item Value Reference Range Interpretation Comments O2 Sat Roberth (test code = O2 Sat Roberth) 48.0 40.0-70.0 N [facility] HospitalAskdzjzMKYQWWYFY6514-88-01 13:52:00 Test Item Value Reference Range Interpretation Comments Temp Roberth (test code = Temp Roberth) 37.0 [facility] HospitalEbbtrfaJEFOEVKSW5467-69-30 13:52:00 Test Item Value Reference Range Interpretation Comments pH Roberth (test code = pH Roberth) 7.47 7.28-7.42 H [facility] HospitalEzcseqfYFSHTTOKS5753-45-71 13:52:00 Test Item Value Reference Range Interpretation Comments Calcium Lvl (test code = Calcium Lvl) 10.1 8.5-10.5 N [facility] HospitalVczgyjfDHKPLWMAH2036-07-47 13:52:00 Test Item Value Reference Range Interpretation Comments Chloride Lvl (test code = Chloride Lvl) 92 95-109 L [facility] HospitalCnrvhbxAAEMPQVYP3201-07-87 13:52:00 Test Item Value Reference Range Interpretation Comments CO2 (test code = CO2) 30 24-32 N [facility] HospitalJnhcipxCESMBTAPT8218-65-98 13:52:00 Test Item Value Reference Range Interpretation Comments Potassium Lvl (test code = Potassium 3.5 3.5-5.1 N Lvl) [facility] HospitalVhtwgugOWYMFJCJW7358-84-19 13:52:00 Test Item Value Reference Range Interpretation Comments Sodium Lvl (test code = Sodium Lvl) 133 135-145 L [facility] HospitalTbktdpoYGVLJUEUW1324-49-56 13:52:00 Test Item Value Reference Range Interpretation Comments Creatinine Lvl (test code = Creatinine 1.3 0.5-1.4 N Lvl) [facility] HospitalMilqymcRZAOTJEID9010-06-51 13:52:00 Test Item Value Reference Range Interpretation Comments Glucose Lvl (test code = Glucose Lvl) 383 70-99 H [facility] HospitalNjkyhvrHMHMAVIWD7087-44-09 13:52:00 Test Item Value Reference Range Interpretation Comments BUN (test code = BUN) 17 7-22 N [facility] HospitalRvpqcydWWCKVEUSE7237-34-20 13:52:00 Test Item Value Reference Range Interpretation Comments AGAP (test code = AGAP) 14.5 10.0-20.0 N [facility] HospitalZgpcgqxNVHIVLTSRW4096-52-50 13:52:00 Test Item Value Reference Range Interpretation Comments MPV (test code = MPV) 12.0 7.4-10.4 H [facility] HospitalAhntsjfILDLSAJEAE2156-07-39 13:52:00 Test Item Value Reference Range Interpretation Comments Platelet (test code = Platelet) 226 133-450 N [facility] HospitalWmtkphhUEEXFKGPPV7097-66-49 13:52:00 Test Item Value Reference Range Interpretation Comments MCHC (test code = MCHC) 33.7 32.0-36.0 N [facility] HospitalLvbmokiOXSUMWJWOW2791-62-47 13:52:00 Test Item Value Reference Range Interpretation Comments MCH (test code = MCH) 28.5 pg 27.0-31.0 N [facility] HospitalXgiurddARSRSDUPZT4485-05-10 13:52:00 Test Item Value Reference Range Interpretation Comments RDW (test code = RDW) 15.1 11.5-14.5 H [facility] HospitalJsyjthtAXUIFFAMGH9304-30-48 13:52:00 Test Item Value Reference Range Interpretation Comments MCV (test code = MCV) 84.6 81.0-99.0 N [facility]GblmhswEXMFDOYFRQ9708-07-12 13:52:00 Test Item Value Reference Range Interpretation Comments Hct (test code = Hct) 36.4 36.0-48.0 N [facility] HospitalJwytqrdZSXICCUYKE2862-65-32 13:52:00 Test Item Value Reference Range Interpretation Comments Hgb (test code = Hgb) 12.3 12.0-16.0 N [facility] HospitalTcjootsPYQRCZCVZV1974-68-03 13:52:00 Test Item Value Reference Range Interpretation Comments RBC (test code = RBC) 4.30 4.20-5.40 N [facility] HospitalNqkdwelTEXGACHDKQ9677-68-51 13:52:00 Test Item Value Reference Range Interpretation Comments WBC (test code = WBC) 11.7 3.7-10.4 H [facility] HospitalOqtqbpjQVDDNXZHTT0471-04-56 13:52:00 Test Item Value Reference Range Interpretation Comments Monocytes (test code = Monocytes) 2.9 2.0-12.0 N [facility] HospitalJbcspryDQTIJBCFAJ7624-35-88 13:52:00 Test Item Value Reference Range Interpretation Comments Eosinophils (test code = 0.2 See_Comment N [A utomated message] The Eosinophils) system which ge nerated this result tra nsmitted reference range : <=4.0. The reference r leo was not used to int erpret this result as normal/abnormal . [facility] HospitalXpkietaDWMFMOOUFJ2590-19-26 13:52:00 Test Item Value Reference Range Interpretation Comments Basophils (test code = 0.0 See_Comment N [Aut omated message] The Basophils) system which ge nerated this result tra nsmitted reference range : <=1.0. The reference r leo was not used to int erpret this result as normal/abnormal . [facility] HospitalSxuhzpbGNUZGBTWLE4223-87-02 13:52:00 Test Item Value Reference Range Interpretation Comments Eosinophils # (test code 0.0 See_Comment N [A utomated message] The = Eosinophils #) system whic h generated this result tra nsmitted reference range : <=0.5. The reference r leo was not used to int erpret this result as normal/abnormal . [facility] HospitalCtvsuwaDAPFWJVCFW9635-46-15 13:52:00 Test Item Value Reference Range Interpretation Comments Monocytes # (test code 0.3 See_Comment N [Aut omated message] The = Monocytes #) system which generated this result tra nsmitted reference range : <=0.8. The reference r leo was not used to int erpret this result as normal/abnormal . [facility] HospitalNiotbjwCZPROFAEPC6632-70-95 13:52:00 Test Item Value Reference Range Interpretation Comments Segs (test code = Segs) 92.0 45.0-75.0 H [facility] HospitalHjatxtdWXEWMPMLYY9421-27-86 13:52:00 Test Item Value Reference Range Interpretation Comments Lymphocytes (test code = Lymphocytes) 4.9 20.0-40.0 L [facility] HospitalEtfgcoaEISOIURRAS6969-25-20 13:52:00 Test Item Value Reference Range Interpretation Comments Spherocyte (test code = Rare A Spherocyte) *ABN*(09/18/2011 08:52:00) [facility] HospitalHhspfvuLGJMDIALZG2817-31-16 13:52:00 Test Item Value Reference Range Interpretation Comments Large Plt (test code = Slight *ABN*(09/18/2011 A Large Plt) 08:52:00) [facility] HospitalKfqjkhoJBVAFBLJOA3632-30-67 13:52:00 Test Item Value Reference Range Interpretation Comments Microcyte (test code = 1+ *ABN*(09/18/2011 A Microcyte) 08:52:00) [facility] HospitalCklsirqTHPFLIIASI7850-96-33 13:52:00 Test Item Value Reference Range Interpretation Comments Schistocyte (test code = Schistocyte) Rare [facility] HospitalJiyxbdoAHZRFELBUV7265-24-63 13:52:00 Test Item Value Reference Range Interpretation Comments Macrocyte (test code = 1+ *ABN*(09/18/2011 A Macrocyte) 08:52:00) [facility] HospitalQdwplzxEGKTBDCXSW3721-46-15 13:52:00 Test Item Value Reference Range Interpretation Comments Lymphocytes # (test code = Lymphocytes 0.6 1.0-5.5 L #) [facility] HospitalGekxpkfUBYRPFIQSI5460-29-52 13:52:00 Test Item Value Reference Range Interpretation Comments Segs-Bands # (test code = Segs-Bands #) 10.8 1.5-8.1 H [facility] HospitalTretimtWXQSOHBDFJ7460-17-02 13:52:00 Test Item Value Reference Range Interpretation Comments Basophils # (test code 0.0 See_Comment N [Aut omated message] The = Basophils #) system which generated this result tra nsmitted reference range : <=0.2. The reference r leo was not used to int erpret this result as normal/abnormal . [facility]FDWXRGPOPE6325-71-40 13:52:00 Test Item Value Reference Range Interpretation Comments Anisocyte (test code = 1+ *ABN*(09/18/2011 A Anisocyte) 08:52:00) [facility]XbyvjivXBNNBCLKEV7709-77-15 13:52:00 Test Item Value Reference Range Interpretation Comments CDC-HIV 1/2 Ab (test Negative *NA*(09/18/2011 code = CDC-HIV 1/2 08:52:00) Ab) [facility] GLUCOSE SGWRQNB0444-43-83 17:34:00 Test Item Value Reference Range Interpretation Comments Gluc POC Lifscn (test code = Gluc POC 215 70-99 H Lifscn) [facility] GLUCOSE UTYPNMY2907-19-14 17:34:00 Test Item Value Reference Range Interpretation Comments Comment1 (test code = Comment1) Notify RN/ [facility] GLUCOSE [id number] 17:34:00 Test Item Value Reference Range Interpretation Comments Gluc POC Lifscn (test code = Gluc POC 215 70-99 H Lifscn) [facility] GLUCOSE SANPHWZ7614-88-42 17:34:00 Test Item Value Reference Range Interpretation Comments Comment1 (test code = Comment1) Notify RN/ [facility] GLUCOSE CVLHJXQ6831-92-67 11:43:00 Test Item Value Reference Range Interpretation Comments Comment1 (test code = Comment1) Notify RN/ [facility] GLUCOSE CGZGIBO9075-35-12 11:43:00 Test Item Value Reference Range Interpretation Comments Gluc POC Lifscn (test code = Gluc POC 91 65-110 N Lifscn) [facility] GLUCOSE XRFESBJ8344-97-74 11:43:00 Test Item Value Reference Range Interpretation Comments Comment1 (test code = Comment1) Notify RN/ [facility] GLUCOSE FNJLIPV1039-94-33 11:43:00 Test Item Value Reference Range Interpretation Comments Gluc POC Lifscn (test code = Gluc POC 91 65-110 N Lifscn) [facility] GLUCOSE EOTYVNS6601-72-32 02:45:00 Test Item Value Reference Range Interpretation Comments Comment1 (test code = Comment1) Notify RN/ [facility] GLUCOSE [id number] 02:45:00 Test Item Value Reference Range Interpretation Comments Gluc POC Lifscn (test code = Gluc POC 148 65-110 H Lifscn) [facility] GLUCOSE REDNZZC5148-66-00 02:45:00 Test Item Value Reference Range Interpretation Comments Comment1 (test code = Comment1) Notify RN/ [facility] GLUCOSE [id number] 02:45:00 Test Item Value Reference Range Interpretation Comments Gluc POC Lifscn (test code = Gluc POC 148 65-110 H Lifscn) [facility]GlojayjLJIBALRMG6222-20-45 08:47:00 Test Item Value Reference Range Interpretation Comments Sodium Lvl (test code = Sodium Lvl) 143 135-145 N [facility] HospitalHtphbnbCDHNDHISM1044-07-38 08:47:00 Test Item Value Reference Range Interpretation Comments Glucose Lvl (test code = Glucose Lvl) 105 [facility] HospitalFcxenrlRVUDQOALM0225-76-53 08:47:00 Test Item Value Reference Range Interpretation Comments CO2 (test code = CO2) 29 24-32 N [facility] HospitalFhpgkfbWEJKRJHAO5919-78-01 08:47:00 Test Item Value Reference Range Interpretation Comments Chloride Lvl (test code = Chloride Lvl) 103 95-109 N [facility] HospitalGiwhgceFKBPNFGDN3194-04-96 08:47:00 Test Item Value Reference Range Interpretation Comments BUN (test code = BUN) 10 7-22 N [facility] HospitalHtkavslBDXEKOQRF3806-02-32 08:47:00 Test Item Value Reference Range Interpretation Comments Potassium Lvl (test code = Potassium 3.8 3.5-5.1 N Lvl) [facility] HospitalDlckrdjAKDJWNVFU9650-34-03 08:47:00 Test Item Value Reference Range Interpretation Comments Creatinine Lvl (test code = Creatinine 0.6 0.5-1.4 N Lvl) [facility] HospitalTtxtoouRRGNDWNJO7972-07-47 08:47:00 Test Item Value Reference Range Interpretation Comments Calcium Lvl (test code = Calcium Lvl) 8.5 8.5-10.5 N [facility] HospitalGiqupniUBIMMRVOR4336-23-15 08:47:00 Test Item Value Reference Range Interpretation Comments AGAP (test code = AGAP) 14.8 10.0-20.0 N [facility]LasjjzrXAYFRSMXTO5251-90-58 08:47:00 Test Item Value Reference Range Interpretation Comments MCH (test code = MCH) 28.9 pg 27.0-31.0 N [facility] HospitalYfinyetHYXIRQEZLB7860-72-99 08:47:00 Test Item Value Reference Range Interpretation Comments MCV (test code = MCV) 82.1 81.0-99.0 N [facility] HospitalTuywwkuKLHLBQALHQ2976-98-74 08:47:00 Test Item Value Reference Range Interpretation Comments Hct (test code = Hct) 25.9 36.0-48.0 L [facility] HospitalCrylnlmSBJYWWJCNS1571-91-94 08:47:00 Test Item Value Reference Range Interpretation Comments Platelet (test code = Platelet) 233 133-450 N [facility] HospitalEiuszwqRCZJPZXWQC1870-78-60 08:47:00 Test Item Value Reference Range Interpretation Comments RDW (test code = RDW) 14.5 11.5-14.5 N [facility] HospitalAnkxsehSUHNJESFKH4944-07-62 08:47:00 Test Item Value Reference Range Interpretation Comments MCHC (test code = MCHC) 35.2 32.0-36.0 N [facility] HospitalWrylhvgIDVZVBRDVK1341-60-44 08:47:00 Test Item Value Reference Range Interpretation Comments Hgb (test code = Hgb) 9.1 12.0-16.0 L [facility] HospitalNxknblzIMQYTXMLCY7260-61-05 08:47:00 Test Item Value Reference Range Interpretation Comments RBC (test code = RBC) 3.15 4.20-5.40 L [facility] HospitalIyekbzjGKJNJUCWVM4733-73-24 08:47:00 Test Item Value Reference Range Interpretation Comments MPV (test code = MPV) 9.0 7.4-10.4 N [facility] HospitalOwamtxaSBWEPQXIYR4259-76-73 08:47:00 Test Item Value Reference Range Interpretation Comments WBC (test code = WBC) 6.3 3.7-10.4 N [facility] HospitalUzwxhkzNYOQMKFAKX1370-05-27 08:47:00 Test Item Value Reference Range Interpretation Comments Eosinophils # (test code 0.0 See_Comment N [A utomated message] The = Eosinophils #) system whic h generated this result tra nsmitted reference range : <=0.5. The reference r leo was not used to int erpret this result as normal/abnormal . [facility] HospitalDbaaucxCJEKKVKIDA0859-47-80 08:47:00 Test Item Value Reference Range Interpretation Comments Basophils # (test code 0.0 See_Comment N [Aut omated message] The = Basophils #) system which generated this result tra nsmitted reference range : <=0.2. The reference r leo was not used to int erpret this result as normal/abnormal . [facility] HospitalFrchxksIWBLIXEDGC2559-12-92 08:47:00 Test Item Value Reference Range Interpretation Comments Segs-Bands # (test code = Segs-Bands #) 3.8 1.5-8.1 N [facility] HospitalJphszxrDHZVQEKUHT9182-54-57 08:47:00 Test Item Value Reference Range Interpretation Comments Lymphocytes # (test code = Lymphocytes 2.0 1.0-5.5 N #) [facility] HospitalZeitarzRRGCDWYFAS7559-59-23 08:47:00 Test Item Value Reference Range Interpretation Comments Basophils (test code = 0.5 See_Comment N [Aut omated message] The Basophils) system which ge nerated this result tra nsmitted reference range : <=1.0. The reference r leo was not used to int erpret this result as normal/abnormal . [facility] HospitalWofftlaUNOOETIBWW1974-34-57 08:47:00 Test Item Value Reference Range Interpretation Comments Eosinophils (test code = 0.7 See_Comment N [A utomated message] The Eosinophils) system which ge nerated this result tra nsmitted reference range : <=4.0. The reference r leo was not used to int erpret this result as normal/abnormal . [facility] HospitalXcagghoMFNTKUJBBL8751-08-94 08:47:00 Test Item Value Reference Range Interpretation Comments Monocytes (test code = Monocytes) 6.2 2.0-12.0 N [facility] HospitalIvcugcdBUXNLVVEPR0416-56-26 08:47:00 Test Item Value Reference Range Interpretation Comments Segs (test code = Segs) 61.1 45.0-75.0 N [facility] HospitalCpczxmkYCLVENBDEM2164-94-15 08:47:00 Test Item Value Reference Range Interpretation Comments Lymphocytes (test code = Lymphocytes) 31.5 20.0-40.0 N [facility] HospitalQibppzjDYNRLTYPJG8562-81-68 08:47:00 Test Item Value Reference Range Interpretation Comments Monocytes # (test code 0.4 See_Comment N [Aut omated message] The = Monocytes #) system which generated this result tra nsmitted reference range : <=0.8. The reference r leo was not used to int erpret this result as normal/abnormal . [facility] HospitalCljtvzuPXRLXBVOR4997-29-62 08:47:00 Test Item Value Reference Range Interpretation Comments Sodium Lvl (test code = Sodium Lvl) 143 135-145 N [facility] HospitalJczzahuMVCYVCVRQ8791-78-66 08:47:00 Test Item Value Reference Range Interpretation Comments Glucose Lvl (test code = Glucose Lvl) 105 [facility] HospitalAvgazqwCJEPCKBMR7633-69-16 08:47:00 Test Item Value Reference Range Interpretation Comments CO2 (test code = CO2) 29 24-32 N [facility] HospitalIyuevdcZCDKCAVSI0537-17-63 08:47:00 Test Item Value Reference Range Interpretation Comments Chloride Lvl (test code = Chloride Lvl) 103 95-109 N [facility] HospitalCghasnmOWSBOQXWO9452-31-70 08:47:00 Test Item Value Reference Range Interpretation Comments BUN (test code = BUN) 10 7-22 N [facility] HospitalSwcfnxzQQVELWLDF4199-27-31 08:47:00 Test Item Value Reference Range Interpretation Comments Potassium Lvl (test code = Potassium 3.8 3.5-5.1 N Lvl) [facility] HospitalSihwdojPKTKFOYBG9786-97-63 08:47:00 Test Item Value Reference Range Interpretation Comments Creatinine Lvl (test code = Creatinine 0.6 0.5-1.4 N Lvl) [facility] HospitalSznsrrbEFXWIAGTZ5313-51-68 08:47:00 Test Item Value Reference Range Interpretation Comments Calcium Lvl (test code = Calcium Lvl) 8.5 8.5-10.5 N [facility] HospitalTwqvhswQUGUEHVTD3521-33-14 08:47:00 Test Item Value Reference Range Interpretation Comments AGAP (test code = AGAP) 14.8 10.0-20.0 N [facility] HospitalCiidfgyJMPZDYRUHQ8438-59-44 08:47:00 Test Item Value Reference Range Interpretation Comments MCH (test code = MCH) 28.9 pg 27.0-31.0 N [facility] HospitalZnzdyzaEYYAOXEKUR7281-46-35 08:47:00 Test Item Value Reference Range Interpretation Comments MCV (test code = MCV) 82.1 81.0-99.0 N [facility] HospitalMhzngnwXGGAGQVPNZ2409-13-40 08:47:00 Test Item Value Reference Range Interpretation Comments Hct (test code = Hct) 25.9 36.0-48.0 L [facility] HospitalGrgtjlzPKHSKKOYKX2179-37-66 08:47:00 Test Item Value Reference Range Interpretation Comments Platelet (test code = Platelet) 233 133-450 N [facility] HospitalLzygbdkBLDWWPMKVI7936-17-38 08:47:00 Test Item Value Reference Range Interpretation Comments RDW (test code = RDW) 14.5 11.5-14.5 N [facility] HospitalNngjxksGIGEZJVNQJ5276-75-39 08:47:00 Test Item Value Reference Range Interpretation Comments MCHC (test code = MCHC) 35.2 32.0-36.0 N [facility] HospitalEmtpothLJRARFLCIG2501-79-49 08:47:00 Test Item Value Reference Range Interpretation Comments Hgb (test code = Hgb) 9.1 12.0-16.0 L [facility] HospitalZhzbaqqHAESOAFAWM1805-28-83 08:47:00 Test Item Value Reference Range Interpretation Comments RBC (test code = RBC) 3.15 4.20-5.40 L [facility] HospitalVrjapblSLQACSXIFG4088-30-52 08:47:00 Test Item Value Reference Range Interpretation Comments MPV (test code = MPV) 9.0 7.4-10.4 N [facility] HospitalZlsrdrqXWVRRTVEQO8938-49-90 08:47:00 Test Item Value Reference Range Interpretation Comments WBC (test code = WBC) 6.3 3.7-10.4 N [facility] HospitalDcsgphmWURXJVALJU1477-40-97 08:47:00 Test Item Value Reference Range Interpretation Comments Eosinophils # (test code 0.0 See_Comment N [A utomated message] The = Eosinophils #) system whic h generated this result tra nsmitted reference range : <=0.5. The reference r leo was not used to int erpret this result as normal/abnormal . [facility] HospitalTjwsfhwRTUGNUZBJZ7224-96-75 08:47:00 Test Item Value Reference Range Interpretation Comments Basophils # (test code 0.0 See_Comment N [Aut omated message] The = Basophils #) system which generated this result tra nsmitted reference range : <=0.2. The reference r leo was not used to int erpret this result as normal/abnormal . [facility] HospitalYzsxntvDBGESYJZGC0089-70-29 08:47:00 Test Item Value Reference Range Interpretation Comments Segs-Bands # (test code = Segs-Bands #) 3.8 1.5-8.1 N [facility] HospitalXogcztoXSZSVCWAPN1098-34-64 08:47:00 Test Item Value Reference Range Interpretation Comments Lymphocytes # (test code = Lymphocytes 2.0 1.0-5.5 N #) [facility] HospitalYxszcygUJTWFTYULQ1965-72-53 08:47:00 Test Item Value Reference Range Interpretation Comments Basophils (test code = 0.5 See_Comment N [Aut omated message] The Basophils) system which ge nerated this result tra nsmitted reference range : <=1.0. The reference r leo was not used to int erpret this result as normal/abnormal . [facility] HospitalKxtdwmpQRFJOSKELK8485-07-89 08:47:00 Test Item Value Reference Range Interpretation Comments Eosinophils (test code = 0.7 See_Comment N [A utomated message] The Eosinophils) system which ge nerated this result tra nsmitted reference range : <=4.0. The reference r leo was not used to int erpret this result as normal/abnormal . [facility] HospitalMyhrlboAGLBQZJAMQ1790-12-10 08:47:00 Test Item Value Reference Range Interpretation Comments Monocytes (test code = Monocytes) 6.2 2.0-12.0 N [facility] HospitalIvpgrsbHTSEYAHTSO0660-47-90 08:47:00 Test Item Value Reference Range Interpretation Comments Segs (test code = Segs) 61.1 45.0-75.0 N [facility] HospitalMnfnqvvGSCTYAAVQM6248-67-74 08:47:00 Test Item Value Reference Range Interpretation Comments Lymphocytes (test code = Lymphocytes) 31.5 20.0-40.0 N [facility] HospitalCmfnrqqRUGLGCQAEM1303-36-02 08:47:00 Test Item Value Reference Range Interpretation Comments Monocytes # (test code 0.4 See_Comment N [Aut omated message] The = Monocytes #) system which generated this result tra nsmitted reference range : <=0.8. The reference r leo was not used to int erpret this result as normal/abnormal . [facility] HospitalAegzeevCEKIMCUUK3878-99-80 10:54:00 Test Item Value Reference Range Interpretation Comments CO2 (test code = CO2) 27 24-32 N [facility] HospitalOnnolutOTURWVDPU7529-86-44 10:54:00 Test Item Value Reference Range Interpretation Comments Chloride Lvl (test code = Chloride Lvl) 104 95-109 N [facility] HospitalMwqlqhxDCKBCSZBX0634-13-39 10:54:00 Test Item Value Reference Range Interpretation Comments Creatinine Lvl (test code = Creatinine 0.5 0.5-1.4 N Lvl) [facility] HospitalDxyqahiGJWWYLVNP0129-69-60 10:54:00 Test Item Value Reference Range Interpretation Comments BUN (test code = BUN) 10 7-22 N [facility] HospitalAidsatlNJISHECVZ9740-61-27 10:54:00 Test Item Value Reference Range Interpretation Comments Potassium Lvl (test code = Potassium 4.1 3.5-5.1 N Lvl) [facility] HospitalCfxkygmGPFFAGLQL8417-03-73 10:54:00 Test Item Value Reference Range Interpretation Comments Sodium Lvl (test code = Sodium Lvl) 141 135-145 N [facility] HospitalEmajvhkNUKAGAOYL2175-27-20 10:54:00 Test Item Value Reference Range Interpretation Comments Glucose Lvl (test code = Glucose Lvl) 83 [facility] HospitalFoejcimMFLPUZXYS5433-68-90 10:54:00 Test Item Value Reference Range Interpretation Comments Calcium Lvl (test code = Calcium Lvl) 8.4 8.5-10.5 L [facility] HospitalSxywdatVUMOBABGW2222-04-65 10:54:00 Test Item Value Reference Range Interpretation Comments AGAP (test code = AGAP) 14.1 10.0-20.0 N [facility] HospitalFusxjckPCJRMSBCBU0181-54-57 10:54:00 Test Item Value Reference Range Interpretation Comments Hct (test code = Hct) 35.5 36.0-48.0 L [facility] HospitalYxoklpvPLIBOJHGCV6328-58-17 10:54:00 Test Item Value Reference Range Interpretation Comments WBC (test code = WBC) 4.7 3.7-10.4 N [facility] HospitalFnmqpkpZGKLXXKEXP4408-96-28 10:54:00 Test Item Value Reference Range Interpretation Comments MCV (test code = MCV) 92.6 81.0-99.0 N [facility] HospitalQajfqzjWPOERYHCTX0061-82-12 10:54:00 Test Item Value Reference Range Interpretation Comments MCH (test code = MCH) 31.4 pg 27.0-31.0 H [facility] HospitalOprivfmEONTEYJRLP6795-43-60 10:54:00 Test Item Value Reference Range Interpretation Comments RBC (test code = RBC) 3.84 4.20-5.40 L [facility] HospitalKhlhwcpMLYBBOLEBP1061-39-35 10:54:00 Test Item Value Reference Range Interpretation Comments Hgb (test code = Hgb) 12.1 12.0-16.0 N [facility] HospitalLotuhmbRROAKZZTYP0495-26-10 10:54:00 Test Item Value Reference Range Interpretation Comments Platelet (test code = Platelet) 287 133-450 N [facility] HospitalXkexoucRSZMXYRFCJ5452-65-56 10:54:00 Test Item Value Reference Range Interpretation Comments RDW (test code = RDW) 12.7 11.5-14.5 N [facility] HospitalKcavcreCRZUYBKANL4916-34-86 10:54:00 Test Item Value Reference Range Interpretation Comments MCHC (test code = MCHC) 33.9 32.0-36.0 N [facility] HospitalMskxwfmCWWSDGEUZP3919-61-86 10:54:00 Test Item Value Reference Range Interpretation Comments MPV (test code = MPV) 7.2 7.4-10.4 [facility]2012-03-19 10:54:00 Test Item Value Reference Range Interpretation Comments INR (test code = INR) 0.95 0.85-1.17 N [facility] HospitalNyyfbhrTOYCFUUMCR3832-16-75 10:54:00 Test Item Value Reference Range Interpretation Comments PT (test code = PT) 12.7 s 12.0-14.7 N [facility] HospitalIdancsaZQJVSSWSRS1225-37-12 10:54:00 Test Item Value Reference Range Interpretation Comments PTT (test code = PTT) 28.5 s 22.9-35.8 N [facility] HospitalKehuemxBKHXNCVJWL2330-45-90 10:54:00 Test Item Value Reference Range Interpretation Comments Eosinophils # (test code 0.1 See_Comment N [A utomated message] The = Eosinophils #) system whic h generated this result tra nsmitted reference range : <=0.5. The reference r leo was not used to int erpret this result as normal/abnormal . [facility] HospitalFnuitfuNQYWZCLIFG0577-18-97 10:54:00 Test Item Value Reference Range Interpretation Comments Basophils # (test code 0.0 See_Comment N [Aut omated message] The = Basophils #) system which generated this result tra nsmitted reference range : <=0.2. The reference r leo was not used to int erpret this result as normal/abnormal . [facility] HospitalJkukoqkMZEWBXKRUE1297-45-63 10:54:00 Test Item Value Reference Range Interpretation Comments Basophils (test code = 0.4 See_Comment N [Aut omated message] The Basophils) system which ge nerated this result tra nsmitted reference range : <=1.0. The reference r leo was not used to int erpret this result as normal/abnormal . [facility] HospitalKsklimzPYPCMNEMCG1868-05-38 10:54:00 Test Item Value Reference Range Interpretation Comments Segs-Bands # (test code = Segs-Bands #) 2.1 1.5-8.1 N [facility] HospitalWbwmhpyKBBNPQQGGD8186-32-90 10:54:00 Test Item Value Reference Range Interpretation Comments Monocytes (test code = Monocytes) 9.0 2.0-12.0 N [facility] HospitalBieurbeMRPQVHHJBH3350-92-23 10:54:00 Test Item Value Reference Range Interpretation Comments Eosinophils (test code = 2.4 See_Comment N [A utomated message] The Eosinophils) system which ge nerated this result tra nsmitted reference range : <=4.0. The reference r leo was not used to int erpret this result as normal/abnormal . [facility] HospitalMtlewmcYETFLYIDKK7202-85-68 10:54:00 Test Item Value Reference Range Interpretation Comments Monocytes # (test code 0.4 See_Comment N [Aut omated message] The = Monocytes #) system which generated this result tra nsmitted reference range : <=0.8. The reference r leo was not used to int erpret this result as normal/abnormal . [facility]FimsaamFVZSZOLSAA5131-46-96 10:54:00 Test Item Value Reference Range Interpretation Comments Lymphocytes # (test code = Lymphocytes 2.0 1.0-5.5 N #) [facility] HospitalJqwvubuZHMPKFJRDS5597-59-56 10:54:00 Test Item Value Reference Range Interpretation Comments Lymphocytes (test code = Lymphocytes) 42.8 20.0-40.0 H [facility] HospitalJdysonvVLVPMYWBHM5920-16-08 10:54:00 Test Item Value Reference Range Interpretation Comments Segs (test code = Segs) 45.4 45.0-75.0 N [facility] HospitalDrquazyNORXTCENZ9722-46-06 10:54:00 Test Item Value Reference Range Interpretation Comments CO2 (test code = CO2) 27 24-32 N [facility] HospitalJadlbcoVZHWWURLA8271-68-45 10:54:00 Test Item Value Reference Range Interpretation Comments Chloride Lvl (test code = Chloride Lvl) 104 95-109 N [facility] HospitalXxgymczEAJFZBQPI1087-05-30 10:54:00 Test Item Value Reference Range Interpretation Comments Creatinine Lvl (test code = Creatinine 0.5 0.5-1.4 N Lvl) [facility] HospitalCkthoxwNSWURLJYR1766-04-96 10:54:00 Test Item Value Reference Range Interpretation Comments BUN (test code = BUN) 10 7-22 N [facility] HospitalCafewofXXKBDBWGU1044-09-84 10:54:00 Test Item Value Reference Range Interpretation Comments Potassium Lvl (test code = Potassium 4.1 3.5-5.1 N Lvl) [facility] HospitalDmguhqtXNPUXCSVD5401-24-14 10:54:00 Test Item Value Reference Range Interpretation Comments Sodium Lvl (test code = Sodium Lvl) 141 135-145 N [facility] HospitalJajmoutXAJTMSZDD8494-02-80 10:54:00 Test Item Value Reference Range Interpretation Comments Glucose Lvl (test code = Glucose Lvl) 83 [facility] HospitalNlqbtzmTHPTFKWRW7242-49-12 10:54:00 Test Item Value Reference Range Interpretation Comments Calcium Lvl (test code = Calcium Lvl) 8.4 8.5-10.5 L [facility] HospitalKeistvoANSQVSSYK7925-26-97 10:54:00 Test Item Value Reference Range Interpretation Comments AGAP (test code = AGAP) 14.1 10.0-20.0 N [facility] HospitalMrsrcudAKMLZZQJLE5823-50-20 10:54:00 Test Item Value Reference Range Interpretation Comments Hct (test code = Hct) 35.5 36.0-48.0 L [facility] HospitalFkpwtvoDILAJDFVAB0769-75-70 10:54:00 Test Item Value Reference Range Interpretation Comments WBC (test code = WBC) 4.7 3.7-10.4 N [facility] HospitalIabaubfWEULRJCTIV7655-18-06 10:54:00 Test Item Value Reference Range Interpretation Comments MCV (test code = MCV) 92.6 81.0-99.0 N [facility] HospitalSakvceiXQYDQXIWVF4455-34-28 10:54:00 Test Item Value Reference Range Interpretation Comments MCH (test code = MCH) 31.4 pg 27.0-31.0 H [facility] HospitalVurxyppKILFGSEVNW6732-46-30 10:54:00 Test Item Value Reference Range Interpretation Comments RBC (test code = RBC) 3.84 4.20-5.40 L [facility] HospitalFeqgzxiSTPIBTXHLC1609-03-80 10:54:00 Test Item Value Reference Range Interpretation Comments Hgb (test code = Hgb) 12.1 12.0-16.0 N [facility] HospitalRkjtowrQRMMYUVYVI8866-60-87 10:54:00 Test Item Value Reference Range Interpretation Comments Platelet (test code = Platelet) 287 133-450 N [facility] HospitalVjybvtgCYGTPIJRTI3180-68-92 10:54:00 Test Item Value Reference Range Interpretation Comments RDW (test code = RDW) 12.7 11.5-14.5 N [facility] HospitalUtyotybZNXTMRYTJV4841-69-02 10:54:00 Test Item Value Reference Range Interpretation Comments MCHC (test code = MCHC) 33.9 32.0-36.0 N [facility] HospitalXpusyjnEJSRKYWIUU6563-27-63 10:54:00 Test Item Value Reference Range Interpretation Comments MPV (test code = MPV) 7.2 7.4-10.4 L [facility] HospitalBdyxkjlWXZWGERCYM1520-85-21 10:54:00 Test Item Value Reference Range Interpretation Comments INR (test code = INR) 0.95 0.85-1.17 N [facility] HospitalQninzjmIPJYNNMNAZ5636-62-54 10:54:00 Test Item Value Reference Range Interpretation Comments PT (test code = PT) 12.7 s 12.0-14.7 N [facility] HospitalKojytdbQCFSMRZQAJ9356-40-70 10:54:00 Test Item Value Reference Range Interpretation Comments PTT (test code = PTT) 28.5 s 22.9-35.8 N [facility] HospitalDfdhcjqEXUAVOCDCD8893-01-60 10:54:00 Test Item Value Reference Range Interpretation Comments Eosinophils # (test code 0.1 See_Comment N [A utomated message] The = Eosinophils #) system whic h generated this result tra nsmitted reference range : <=0.5. The reference r leo was not used to int erpret this result as normal/abnormal . [facility] HospitalLvdzotrQVKKTSJXDP2598-03-02 10:54:00 Test Item Value Reference Range Interpretation Comments Basophils # (test code 0.0 See_Comment N [Aut omated message] The = Basophils #) system which generated this result tra nsmitted reference range : <=0.2. The reference r leo was not used to int erpret this result as normal/abnormal . [facility] HospitalEycwchnSRDZZEZSHJ5785-32-80 10:54:00 Test Item Value Reference Range Interpretation Comments Basophils (test code = 0.4 See_Comment N [Aut omated message] The Basophils) system which ge nerated this result tra nsmitted reference range : <=1.0. The reference r leo was not used to int erpret this result as normal/abnormal . [facility] HospitalUzclolzBJZDRSIAHK6639-59-25 10:54:00 Test Item Value Reference Range Interpretation Comments Segs-Bands # (test code = Segs-Bands #) 2.1 1.5-8.1 N [facility] HospitalKptuwzzAUMSSBTWWC1392-01-70 10:54:00 Test Item Value Reference Range Interpretation Comments Monocytes (test code = Monocytes) 9.0 2.0-12.0 N [facility] HospitalPtfaajgQMIFFCHNYT9792-29-25 10:54:00 Test Item Value Reference Range Interpretation Comments Eosinophils (test code = 2.4 See_Comment N [A utomated message] The Eosinophils) system which ge nerated this result tra nsmitted reference range : <=4.0. The reference r leo was not used to int erpret this result as normal/abnormal . [facility] HospitalHfainfzOYHUQWTQUI9137-35-21 10:54:00 Test Item Value Reference Range Interpretation Comments Monocytes # (test code 0.4 See_Comment N [Aut omated message] The = Monocytes #) system which generated this result tra nsmitted reference range : <=0.8. The reference r leo was not used to int erpret this result as normal/abnormal . [facility] HospitalEfaaqwjPYTFRAMRAM9414-36-66 10:54:00 Test Item Value Reference Range Interpretation Comments Lymphocytes # (test code = Lymphocytes 2.0 1.0-5.5 N #) [facility] HospitalXfnuiszTHJZMSVRXZ9867-56-77 10:54:00 Test Item Value Reference Range Interpretation Comments Lymphocytes (test code = Lymphocytes) 42.8 20.0-40.0 H [facility] HospitalYqtegunSKXZVWOVOX7837-41-65 10:54:00 Test Item Value Reference Range Interpretation Comments Segs (test code = Segs) 45.4 45.0-75.0 N [facility] HospitalIwsjajvNRZCDEALK5760-55-71 10:02:00 Test Item Value Reference Range Interpretation Comments Chloride Lvl (test code = Chloride Lvl) 105 95-109 N [facility] HospitalSicggezXNIOEJTJV5403-00-87 10:02:00 Test Item Value Reference Range Interpretation Comments Potassium Lvl (test code = Potassium 4.1 3.5-5.1 N Lvl) [facility] HospitalGbllgvfPLGIRWFGJ7470-67-17 10:02:00 Test Item Value Reference Range Interpretation Comments Sodium Lvl (test code = Sodium Lvl) 143 135-145 N [facility] HospitalCfwrtktCJLSVQSSV8712-83-33 10:02:00 Test Item Value Reference Range Interpretation Comments CO2 (test code = CO2) 29 24-32 N [facility] HospitalIttxwtpANIPGJBNQ8357-60-83 10:02:00 Test Item Value Reference Range Interpretation Comments Calcium Lvl (test code = Calcium Lvl) 8.7 8.5-10.5 N [facility] HospitalLljumdfPMHZFBXMU0814-59-65 10:02:00 Test Item Value Reference Range Interpretation Comments BUN (test code = BUN) 6 7-22 L [facility] HospitalEkvhibnLZVHNXEKT9279-51-35 10:02:00 Test Item Value Reference Range Interpretation Comments Creatinine Lvl (test code = Creatinine 0.6 0.5-1.4 N Lvl) [facility] HospitalUzsxlsdSICRPDUGR4040-53-96 10:02:00 Test Item Value Reference Range Interpretation Comments Glucose Lvl (test code = Glucose Lvl) 118 [facility] HospitalXdefkzhSYACUWPPA6905-34-20 10:02:00 Test Item Value Reference Range Interpretation Comments AGAP (test code = AGAP) 13.1 10.0-20.0 N [facility] HospitalRbjtrjkOPFFUPHPGN3564-21-70 10:02:00 Test Item Value Reference Range Interpretation Comments Basophils # (test code 0.0 See_Comment N [Aut omated message] The = Basophils #) system which generated this result tra nsmitted reference range : <=0.2. The reference r leo was not used to int erpret this result as normal/abnormal . [facility] HospitalZrcjyfgAPZCMSPWGT2074-38-49 10:02:00 Test Item Value Reference Range Interpretation Comments Monocytes # (test code 0.3 See_Comment N [Aut omated message] The = Monocytes #) system which generated this result tra nsmitted reference range : <=0.8. The reference r leo was not used to int erpret this result as normal/abnormal . [facility] HospitalEdwlmlsBLGJQKWDIH7175-42-55 10:02:00 Test Item Value Reference Range Interpretation Comments Eosinophils # (test code 0.1 See_Comment N [A utomated message] The = Eosinophils #) system whic h generated this result tra nsmitted reference range : <=0.5. The reference r leo was not used to int erpret this result as normal/abnormal . [facility] HospitalYwxqppyOCRZCUKUAW1483-72-59 10:02:00 Test Item Value Reference Range Interpretation Comments Segs-Bands # (test code = Segs-Bands #) 2.8 1.5-8.1 N [facility] HospitalQfzdywlEBNMLVIUHW9139-52-82 10:02:00 Test Item Value Reference Range Interpretation Comments Lymphocytes # (test code = Lymphocytes 1.7 1.0-5.5 N #) [facility] HospitalYjzyylgXGKOTAJLUW6879-17-81 10:02:00 Test Item Value Reference Range Interpretation Comments Basophils (test code = 0.6 See_Comment N [Aut omated message] The Basophils) system which ge nerated this result tra nsmitted reference range : <=1.0. The reference r leo was not used to int erpret this result as normal/abnormal . [facility] HospitalGakgdijESVTZJNCMF8523-72-43 10:02:00 Test Item Value Reference Range Interpretation Comments Monocytes (test code = Monocytes) 6.9 2.0-12.0 N [facility] HospitalWbrsecdIFKNUBNWHN8767-53-12 10:02:00 Test Item Value Reference Range Interpretation Comments Eosinophils (test code = 2.0 See_Comment N [A utomated message] The Eosinophils) system which ge nerated this result tra nsmitted reference range : <=4.0. The reference r leo was not used to int erpret this result as normal/abnormal . [facility] HospitalDrifplqTYIMIYTXRB0651-22-46 10:02:00 Test Item Value Reference Range Interpretation Comments Segs (test code = Segs) 55.8 45.0-75.0 N [facility] HospitalVtiukpeFFWTLEFFPM8490-61-43 10:02:00 Test Item Value Reference Range Interpretation Comments Lymphocytes (test code = Lymphocytes) 34.7 20.0-40.0 N [facility] HospitalVgvurhwZEWJKSFWHX2168-05-96 10:02:00 Test Item Value Reference Range Interpretation Comments PTT (test code = PTT) 32.2 s 22.9-35.8 N [facility] HospitalVmkuvgaGKUJUSBXEG6122-55-33 10:02:00 Test Item Value Reference Range Interpretation Comments PT (test code = PT) 13.3 s 12.0-14.7 N [facility] HospitalDefsnqrHZDBYLNIVG8729-53-74 10:02:00 Test Item Value Reference Range Interpretation Comments INR (test code = INR) 1.01 0.85-1.17 N [facility] HospitalOahmvbzOXIPVFBJRZ2001-06-29 10:02:00 Test Item Value Reference Range Interpretation Comments Hct (test code = Hct) 27.5 36.0-48.0 L [facility] HospitalGvgrypuXDANCMTHKG6045-46-41 10:02:00 Test Item Value Reference Range Interpretation Comments RBC (test code = RBC) 3.34 4.20-5.40 L [facility] HospitalYbktratPARVEOXBCA9061-19-02 10:02:00 Test Item Value Reference Range Interpretation Comments Hgb (test code = Hgb) 9.7 12.0-16.0 L [facility] HospitalVppflemALFYLORYUO7497-80-43 10:02:00 Test Item Value Reference Range Interpretation Comments WBC (test code = WBC) 5.0 3.7-10.4 N [facility] HospitalCckvqipEIEQJSCFDL6254-05-75 10:02:00 Test Item Value Reference Range Interpretation Comments MPV (test code = MPV) 9.2 7.4-10.4 N [facility] HospitalFogvsjeNXCOEOFVYA7346-52-12 10:02:00 Test Item Value Reference Range Interpretation Comments Platelet (test code = Platelet) 240 133-450 N [facility] HospitalEfqhaddEGWXKKPIBC5315-72-50 10:02:00 Test Item Value Reference Range Interpretation Comments RDW (test code = RDW) 14.3 11.5-14.5 N [facility] HospitalIgnlvgvBYKUVCSBHM9597-13-71 10:02:00 Test Item Value Reference Range Interpretation Comments MCHC (test code = MCHC) 35.2 32.0-36.0 N [facility] HospitalXxesvaaTWMGVONPYA4838-69-84 10:02:00 Test Item Value Reference Range Interpretation Comments MCH (test code = MCH) 28.9 pg 27.0-31.0 N [facility] HospitalDazcgefWDNZDATPFY1750-07-35 10:02:00 Test Item Value Reference Range Interpretation Comments MCV (test code = MCV) 82.1 81.0-99.0 N [facility] HospitalEzpfeozIJCXONEZF8421-41-46 10:02:00 Test Item Value Reference Range Interpretation Comments Chloride Lvl (test code = Chloride Lvl) 105 95-109 N [facility] HospitalQrlbelpRIRMKLMNR2063-15-29 10:02:00 Test Item Value Reference Range Interpretation Comments Potassium Lvl (test code = Potassium 4.1 3.5-5.1 N Lvl) [facility] HospitalPscicwzMJALCGBEB3221-81-23 10:02:00 Test Item Value Reference Range Interpretation Comments Sodium Lvl (test code = Sodium Lvl) 143 135-145 N [facility] HospitalKwefpyuLQPXXOFMP4026-80-90 10:02:00 Test Item Value Reference Range Interpretation Comments CO2 (test code = CO2) 29 24-32 N [facility] HospitalWakktwxABWADKIOZ8862-33-71 10:02:00 Test Item Value Reference Range Interpretation Comments Calcium Lvl (test code = Calcium Lvl) 8.7 8.5-10.5 N [facility] HospitalNiwrkzbYHIUOXGXC6734-06-46 10:02:00 Test Item Value Reference Range Interpretation Comments BUN (test code = BUN) 6 7-22 L [facility] HospitalQfzczacEQSAKBLBY9636-00-66 10:02:00 Test Item Value Reference Range Interpretation Comments Creatinine Lvl (test code = Creatinine 0.6 0.5-1.4 N Lvl) [facility] HospitalIpmhcpzEOZJACKJJ3017-88-38 10:02:00 Test Item Value Reference Range Interpretation Comments Glucose Lvl (test code = Glucose Lvl) 118 [facility] HospitalQjpsfyeUGMKSVTBW5159-99-42 10:02:00 Test Item Value Reference Range Interpretation Comments AGAP (test code = AGAP) 13.1 10.0-20.0 N [facility] HospitalDfdloesNEJSREGHXL0590-28-41 10:02:00 Test Item Value Reference Range Interpretation Comments Basophils # (test code 0.0 See_Comment N [Aut omated message] The = Basophils #) system which generated this result tra nsmitted reference range : <=0.2. The reference r leo was not used to int erpret this result as normal/abnormal . [facility] HospitalNdqicenPEKLECNNHE6569-31-33 10:02:00 Test Item Value Reference Range Interpretation Comments Monocytes # (test code 0.3 See_Comment N [Aut omated message] The = Monocytes #) system which generated this result tra nsmitted reference range : <=0.8. The reference r leo was not used to int erpret this result as normal/abnormal . [facility] HospitalBdoshqbGPYNTBAHXT2129-78-83 10:02:00 Test Item Value Reference Range Interpretation Comments Eosinophils # (test code 0.1 See_Comment N [A utomated message] The = Eosinophils #) system whic h generated this result tra nsmitted reference range : <=0.5. The reference r leo was not used to int erpret this result as normal/abnormal . [facility] HospitalBujsbokBBEUBVKHVV3437-65-40 10:02:00 Test Item Value Reference Range Interpretation Comments Segs-Bands # (test code = Segs-Bands #) 2.8 1.5-8.1 N [facility] HospitalFhcthppBEXFNIPVFH4889-16-35 10:02:00 Test Item Value Reference Range Interpretation Comments Lymphocytes # (test code = Lymphocytes 1.7 1.0-5.5 N #) [facility] HospitalUqvxjyvXSLXXHUEKN0877-19-85 10:02:00 Test Item Value Reference Range Interpretation Comments Basophils (test code = 0.6 See_Comment N [Aut omated message] The Basophils) system which ge nerated this result tra nsmitted reference range : <=1.0. The reference r leo was not used to int erpret this result as normal/abnormal . [facility] HospitalEyxzwtoLGUCWLRPXU7107-42-43 10:02:00 Test Item Value Reference Range Interpretation Comments Monocytes (test code = Monocytes) 6.9 2.0-12.0 N [facility] HospitalYfxikrxWUHMBUFNDS0059-92-96 10:02:00 Test Item Value Reference Range Interpretation Comments Eosinophils (test code = 2.0 See_Comment N [A utomated message] The Eosinophils) system which ge nerated this result tra nsmitted reference range : <=4.0. The reference r leo was not used to int erpret this result as normal/abnormal . [facility] HospitalAhaqecmVNOSBLXUGD6321-43-18 10:02:00 Test Item Value Reference Range Interpretation Comments Segs (test code = Segs) 55.8 45.0-75.0 N [facility] HospitalBxemzuxNWALHPAGCS7876-65-36 10:02:00 Test Item Value Reference Range Interpretation Comments Lymphocytes (test code = Lymphocytes) 34.7 20.0-40.0 N [facility] HospitalWrptzrsQJUAABXGOM8442-27-21 10:02:00 Test Item Value Reference Range Interpretation Comments PTT (test code = PTT) 32.2 s 22.9-35.8 N [facility] HospitalSjobpyoANCUQLSIBP5802-91-53 10:02:00 Test Item Value Reference Range Interpretation Comments PT (test code = PT) 13.3 s 12.0-14.7 N [facility] HospitalTenhhmdQZBTVNEXKS2147-95-01 10:02:00 Test Item Value Reference Range Interpretation Comments INR (test code = INR) 1.01 0.85-1.17 N [facility] HospitalJjbdharBOUPTTTSGE0422-42-58 10:02:00 Test Item Value Reference Range Interpretation Comments Hct (test code = Hct) 27.5 36.0-48.0 L [facility] HospitalBvduyopVJOLLFMBTU3500-35-59 10:02:00 Test Item Value Reference Range Interpretation Comments RBC (test code = RBC) 3.34 4.20-5.40 L [facility] HospitalXtepgiuPCOPSEAWVG6556-83-49 10:02:00 Test Item Value Reference Range Interpretation Comments Hgb (test code = Hgb) 9.7 12.0-16.0 L [facility] HospitalGsfkxooXUGSDQDDVH5525-22-29 10:02:00 Test Item Value Reference Range Interpretation Comments WBC (test code = WBC) 5.0 3.7-10.4 N [facility] HospitalFmyckyiARBNIHTBJN9742-66-03 10:02:00 Test Item Value Reference Range Interpretation Comments MPV (test code = MPV) 9.2 7.4-10.4 N [facility] HospitalKqqequfCZTLJINBGY1381-50-24 10:02:00 Test Item Value Reference Range Interpretation Comments Platelet (test code = Platelet) 240 133-450 N [facility] HospitalJbdtafxATYNKRZKJX6323-85-77 10:02:00 Test Item Value Reference Range Interpretation Comments RDW (test code = RDW) 14.3 11.5-14.5 N [facility] HospitalSjrjoatWKPSONZSFH5229-44-94 10:02:00 Test Item Value Reference Range Interpretation Comments MCHC (test code = MCHC) 35.2 32.0-36.0 N [facility] HospitalRvymvloTYFGWJBVTP2086-64-04 10:02:00 Test Item Value Reference Range Interpretation Comments MCH (test code = MCH) 28.9 pg 27.0-31.0 N [facility] HospitalZwqnmcvKONSCUALRW1516-64-59 10:02:00 Test Item Value Reference Range Interpretation Comments MCV (test code = MCV) 82.1 81.0-99.0 N [facility] HospitalScvfrsvGWFDEZXYU1923-11-64 09:24:00 Test Item Value Reference Range Interpretation Comments Magnesium Lvl (test code = Magnesium 2.1 1.8-2.4 N Lvl) [facility] HospitalAwnpnhxIZBHCPFVG7130-00-04 09:24:00 Test Item Value Reference Range Interpretation Comments Magnesium Lvl (test code = Magnesium 2.1 1.8-2.4 N Lvl) [facility]JdvwdtcIbjqmursbjqt5216-[facility]-28 00:32:00 Test Item Value Reference Range Interpretation Comments Culture: Aspirate/Body Fluid/Tissue (test code = Culture: Aspirate/Body Fluid/Tissue) [facility] AustinGsoekwtTbyshgrtabrb0898-05-67 00:32:00 Test Item Value Reference Range Interpretation Comments Culture: Anaerobic (test code = Culture: Anaerobic) [facility] AustinNkfhmthDaqvxmkowdbf3913-67-92 00:32:00 Test Item Value Reference Range Interpretation Comments Culture: Aspirate/Body Fluid/Tissue (test code = Culture: Aspirate/Body Fluid/Tissue) [facility] AustinAmndxalEwfafqkcsrjf3280-13-99 00:32:00 Test Item Value Reference Range Interpretation Comments Culture: Anaerobic (test code = Culture: Anaerobic) [facility] HospitalMqloinwTYGZOJOJR8211-32-36 17:10:00 Test Item Value Reference Range Interpretation Comments Temp Roberth (test code = Temp Roberth) 37.0 [facility] HospitalKqhxurgPGHXSCCYU2813-31-87 17:10:00 Test Item Value Reference Range Interpretation Comments O2 Sat Roberth (test code = O2 Sat Roberth) 27.0 40.0-70.0 L [facility] HospitalSqlibjmZXSWHWRLO6325-67-12 17:10:00 Test Item Value Reference Range Interpretation Comments pCO2 Roberth (test code = pCO2 Roberth) 47 38-52 N [facility] HospitalXjvlqlgQPVPFKVZM9521-32-77 17:10:00 Test Item Value Reference Range Interpretation Comments pH Roberth (test code = pH Roberth) 7.37 7.28-7.42 N [facility] HospitalFbetllyAWCNWUKYP3033-83-28 17:10:00 Test Item Value Reference Range Interpretation Comments BE Roberth (test code = 1 See_Comment N [Automa rohit message] The BE Roberth) system which ge nerated this result transmit rohit reference range : <=2. The reference range was not used to interpr et this result as reji l/abnormal. [facility]AglrfgqNIDPMEIOX8737-39-49 17:10:00 Test Item Value Reference Range Interpretation Comments HCO3 Roberth (test code = HCO3 Roberth) 27.2 22.0-26.0 H [facility] HospitalIqgybssBOYFDFHHP9747-81-66 17:10:00 Test Item Value Reference Range Interpretation Comments pO2 Roberth (test code = pO2 Roberth) 19 20-49 L [facility] CypressOfnbgvcXZFMXAAUM5047-74-95 17:10:00 Test Item Value Reference Range Interpretation Comments Temp Roberth (test code = Temp Roberth) 37.0 [facility] CypressXuratkjNCVOOFJRZ1616-36-21 17:10:00 Test Item Value Reference Range Interpretation Comments O2 Sat Roberth (test code = O2 Sat Roberth) 27.0 40.0-70.0 L [facility] CypressNlnwzurGGZRSFSIG3801-14-39 17:10:00 Test Item Value Reference Range Interpretation Comments pCO2 Roberth (test code = pCO2 Roberth) 47 38-52 N [facility] CypressGxviqggLMNTQALCS7034-77-02 17:10:00 Test Item Value Reference Range Interpretation Comments pH Roberth (test code = pH Roberth) 7.37 7.28-7.42 N [facility] CypressRswdfilYNDFURBFF5364-95-76 17:10:00 Test Item Value Reference Range Interpretation Comments BE Roberth (test code = 1 See_Comment N [Automa rohit message] The BE Roberth) system which ge nerated this result transmit rohit reference range : <=2. The reference range was not used to interpr et this result as reji l/abnormal. [facility] CypressRqqxhgkLZGEQMUGW0758-21-44 17:10:00 Test Item Value Reference Range Interpretation Comments HCO3 Roberth (test code = HCO3 Roberth) 27.2 22.0-26.0 H [facility] HospitalVqdbfimWURKKADCV7574-27-82 17:10:00 Test Item Value Reference Range Interpretation Comments pO2 Roberth (test code = pO2 Roberth) 19 20-49 L [facility] AustinTilwfrkYsetukwpjozf3033-44-31 14:18:00 Test Item Value Reference Range Interpretation Comments Culture: Blood (test code = Culture: Blood) [facility] AustinLjwmihbHtxwfzlipqlz2796-44-99 14:18:00 Test Item Value Reference Range Interpretation Comments Culture: Wound/Abscess w/Gram Stain (test code = Culture: Wound/Abscess w/Gram Stain) [facility]KnpcaahMmfokbhcljzj5046-51-58 14:18:00 Test Item Value Reference Range Interpretation Comments Culture: Blood (test code = Culture: Blood) [facility] AustinIhshnqdZucxarznoivj2149-78-30 14:18:00 Test Item Value Reference Range Interpretation Comments Culture: Wound/Abscess w/Gram Stain (test code = Culture: Wound/Abscess w/Gram Stain) [facility]hcqtwtXUNZHEZET6151-43-74 13:09:00 Test Item Value Reference Range Interpretation Comments Lactic Acid Lvl (test code = Lactic 1.0 0.5-2.2 N Acid Lvl) [facility]WjmrhjgJLAFQRWMP6088-05-96 13:09:00 Test Item Value Reference Range Interpretation Comments Lactic Acid Lvl (test code = Lactic 1.0 0.5-2.2 N Acid Lvl) [facility] HospitalMgkllclKSLXYRGOC2975-13-07 12:20:00 Test Item Value Reference Range Interpretation Comments U Preg (test code = U Negative (09/01/2011 N Preg) 07:20:00) [facility]xx[facility]IVTOTXDIY6338-62-31 12:20:00 Test Item Value Reference Range Interpretation Comments UA Sq Epi (test code Occasional /LPF N = UA Sq Epi) (09/01/2011 07:20:00) [facility]YjsffjpKMERYNCOIR9677-56-10 12:20:00 Test Item Value Reference Range Interpretation Comments UA Leuk Est (test Negative (09/01/2011 N code = UA Leuk Est) 07:20:00) [facility]OzsuywxVEOVLPZNWP0918-66-41 12:20:00 Test Item Value Reference Range Interpretation Comments UA Nitrite (test code Negative (09/01/2011 N = UA Nitrite) 07:20:00) [facility] HospitalWbglmqgGJKKCQCKOP5036-52-52 12:20:00 Test Item Value Reference Range Interpretation Comments UA Urobilinogen (test code = UA 0.2 0.1-1.0 N Urobilinogen) [facility]leLmgmpdlNCCWDXBIMD8988-20-91 12:20:00 Test Item Value Reference Range Interpretation Comments UA Blood (test code = Negative (09/01/2011 N UA Blood) 07:20:00) [facility]leHfykqbpBJSNJLAXPD4549-81-69 12:20:00 Test Item Value Reference Range Interpretation Comments UA Ketones (test code = >=80 mg/dL A UA Ketones) *ABN*(09/01/2011 07:20:00) [facility]leEutjdlaOOOKOZOFRO3681-56-59 12:20:00 Test Item Value Reference Range Interpretation Comments UA Protein (test code Negative (09/01/2011 N = UA Protein) 07:20:00) [facility]leHriocrhFPXCETFMRM1449-36-32 12:20:00 Test Item Value Reference Range Interpretation Comments UA pH (test code = UA pH) 6.0 1 5.0-8.0 N [facility]leMtvvxcpRCHSISMTVZ3735-65-99 12:20:00 Test Item Value Reference Range Interpretation Comments UA Bili (test code = Negative (09/01/2011 N UA Bili) 07:20:00) [facility]leVrnqlkwAKOQGIWTNM3409-59-11 12:20:00 Test Item Value Reference Range Interpretation Comments UA Glucose (test code = >=1000 mg/dL A UA Glucose) *ABN*(09/01/2011 07:20:00) [facility]leJeyzjweSHZFWCOYBO8816-35-36 12:20:00 Test Item Value Reference Range Interpretation Comments UA Spec Grav (test code = UA Spec 1.035 1 H Grav) [facility]QmszdseUDYUYWYMJS6610-94-27 12:20:00 Test Item Value Reference Range Interpretation Comments UA Turbidity (test code = Clear (09/01/2011 N UA Turbidity) 07:20:00) [facility]leLkpaicwKFFSRPQHFH4447-58-31 12:20:00 Test Item Value Reference Range Interpretation Comments UA Color (test code = Yellow *NA*(09/01/2011 UA Color) 07:20:00) [facility] HospitalWmqwwqdWYLYEKYMP0895-25-23 12:20:00 Test Item Value Reference Range Interpretation Comments U Preg (test code = U Negative (09/01/2011 N Preg) 07:20:00) [facility]leHdvvprrXGHXGGKPZS2820-16-44 12:20:00 Test Item Value Reference Range Interpretation Comments UA Sq Epi (test code Occasional /LPF N = UA Sq Epi) (09/01/2011 07:20:00) [facility]leShjmcrlCLPNNXNTVL1964-77-07 12:20:00 Test Item Value Reference Range Interpretation Comments UA Leuk Est (test Negative (09/01/2011 N code = UA Leuk Est) 07:20:00) [facility]leHpohaenQQJIHKENUU9252-05-88 12:20:00 Test Item Value Reference Range Interpretation Comments UA Nitrite (test code Negative (09/01/2011 N = UA Nitrite) 07:20:00) [facility]ZynewdbUFZPESMUFS0061-81-52 12:20:00 Test Item Value Reference Range Interpretation Comments UA Urobilinogen (test code = UA 0.2 0.1-1.0 N Urobilinogen) [facility] ArlingtonUqaonmnTRHQNUSBEB6590-01-31 12:20:00 Test Item Value Reference Range Interpretation Comments UA Blood (test code = Negative (09/01/2011 N UA Blood) 07:20:00) [facility] ArlingtonZvwymvmCXIAUXBBYP1056-73-16 12:20:00 Test Item Value Reference Range Interpretation Comments UA Ketones (test code = >=80 mg/dL A UA Ketones) *ABN*(09/01/2011 07:20:00) [facility] ArlingtonAtycyqjAWJFSRUEWD5016-04-13 12:20:00 Test Item Value Reference Range Interpretation Comments UA Protein (test code Negative (09/01/2011 N = UA Protein) 07:20:00) [facility] ArlingtonItdouseASQVBJLRZN4917-68-36 12:20:00 Test Item Value Reference Range Interpretation Comments UA pH (test code = UA pH) 6.0 1 5.0-8.0 N [facility] ArlingtonVxdsfqcDDNODYFVRR7682-80-32 12:20:00 Test Item Value Reference Range Interpretation Comments UA Bili (test code = Negative (09/01/2011 N UA Bili) 07:20:00) [facility] ArlingtonUofgyveZLVFBSESCA0970-30-97 12:20:00 Test Item Value Reference Range Interpretation Comments UA Glucose (test code = >=1000 mg/dL A UA Glucose) *ABN*(09/01/2011 07:20:00) [facility] ArlingtonTadkhvhNKYYMDBIQW7917-97-39 12:20:00 Test Item Value Reference Range Interpretation Comments UA Spec Grav (test code = UA Spec 1.035 1 H Grav) [facility] ArlingtonZwvnzvvUUKCOKWFCS4521-50-29 12:20:00 Test Item Value Reference Range Interpretation Comments UA Turbidity (test code = Clear (09/01/2011 N UA Turbidity) 07:20:00) [facility] HospitalFrlbjbhVLIKAUTCKA2744-98-85 12:20:00 Test Item Value Reference Range Interpretation Comments UA Color (test code = Yellow *NA*(09/01/2011 UA Color) 07:20:00) [facility] HospitalBosmtwiIPNVQCJME0692-17-63 08:00:00 Test Item Value Reference Range Interpretation Comments Lactic Acid Lvl (test code = Lactic 2.8 0.5-2.2 H Acid Lvl) [facility] HospitalWttfadpOSBNADSVI6479-70-24 08:00:00 Test Item Value Reference Range Interpretation Comments Lactic Acid Lvl (test code = Lactic 2.8 0.5-2.2 H Acid Lvl) [facility] HospitalLkgcsmdJTTKMBHCV2952-31-33 07:47:00 Test Item Value Reference Range Interpretation Comments Magnesium Lvl (test code = Magnesium 1.5 1.8-2.4 L Lvl) [facility] HospitalBhwtzgpVJAMSKFUYA7492-27-99 07:47:00 Test Item Value Reference Range Interpretation Comments Polychrom (test code = Slight (09/01/2011 N Polychrom) 02:47:00) [facility] HospitalVyabutaPQWCEYWAUA8908-15-72 07:47:00 Test Item Value Reference Range Interpretation Comments Anisocyte (test code = 1+ *ABN*(09/01/2011 A Anisocyte) 02:47:00) [facility] HospitalXiblyrhODXCBMVHCT5919-44-76 07:47:00 Test Item Value Reference Range Interpretation Comments Large Plt (test code = Slight *ABN*(09/01/2011 A Large Plt) 02:47:00) [facility] HospitalGlyplfsYSBZIVHHNX7620-69-25 07:47:00 Test Item Value Reference Range Interpretation Comments Tear Cell (test code = Tear Cell) Occasional [facility] HospitalXvhcjpcHIUTCRDBAT7884-85-68 07:47:00 Test Item Value Reference Range Interpretation Comments Elliptocyte (test code = Slight A Elliptocyte) *ABN*(09/01/2011 02:47:00) [facility] HospitalIziuyfyJXOZLCLAG7737-22-39 07:47:00 Test Item Value Reference Range Interpretation Comments Magnesium Lvl (test code = Magnesium 1.5 1.8-2.4 L Lvl) [facility] HospitalImsjawzEGCWFSLYSR6123-16-81 07:47:00 Test Item Value Reference Range Interpretation Comments Polychrom (test code = Slight (09/01/2011 N Polychrom) 02:47:00) [facility] HospitalFkjsasdMGRNDCSQRW0618-66-47 07:47:00 Test Item Value Reference Range Interpretation Comments Anisocyte (test code = 1+ *ABN*(09/01/2011 A Anisocyte) 02:47:00) [facility] HospitalTyzymkpVXXMUKBSVT0051-56-51 07:47:00 Test Item Value Reference Range Interpretation Comments Large Plt (test code = Slight *ABN*(09/01/2011 A Large Plt) 02:47:00) [facility] HospitalFvrgrewAMKAXNPBKC2088-94-40 07:47:00 Test Item Value Reference Range Interpretation Comments Tear Cell (test code = Tear Cell) Occasional [facility] HospitalDjaeqwbMMLBVYMSUP3288-27-13 07:47:00 Test Item Value Reference Range Interpretation Comments Elliptocyte (test code = Slight A Elliptocyte) *ABN*(09/01/2011 02:47:00) [facility] GLUCOSE SDEARSY7617-63-20 17:02:00 Test Item Value Reference Range Interpretation Comments Comment1 (test code = Comment1) Notify RN/ [facility] GLUCOSE [id number] 17:02:00 Test Item Value Reference Range Interpretation Comments Gluc POC Lifscn (test code = Gluc POC 134 65-110 H Lifscn) [facility] GLUCOSE KUYELPV1028-62-33 17:02:00 Test Item Value Reference Range Interpretation Comments Comment1 (test code = Comment1) Notify RN/ [facility] GLUCOSE [id number] 17:02:00 Test Item Value Reference Range Interpretation Comments Gluc POC Lifscn (test code = Gluc POC 134 65-110 H Lifscn) [facility] GLUCOSE UEPDHCC9198-80-53 13:45:00 Test Item Value Reference Range Interpretation Comments Gluc POC Lifscn (test code = Gluc POC 182 65-110 H Lifscn) [facility] GLUCOSE KVNKERS5896-51-02 13:45:00 Test Item Value Reference Range Interpretation Comments Comment1 (test code = Comment1) Notify RN/ [facility] GLUCOSE IAZAADP7650-42-15 13:45:00 Test Item Value Reference Range Interpretation Comments Gluc POC Lifscn (test code = Gluc POC 182 65-110 H Lifscn) [facility] GLUCOSE SWQCLLY9156-34-44 13:45:00 Test Item Value Reference Range Interpretation Comments Comment1 (test code = Comment1) Ravi RN/ [facility] HospitalExqznbcHZHCVXMPG4271-37-33 10:22:00 Test Item Value Reference Range Interpretation Comments Phosphorus (test code = Phosphorus) 3.0 2.5-4.5 N [facility] HospitalGhxinfqZIRSCMVPP5251-03-15 10:22:00 Test Item Value Reference Range Interpretation Comments Magnesium Lvl (test code = Magnesium 1.8 1.8-2.4 N Lvl) [facility] HospitalCtbvdkvJFRMHQVMK1618-16-54 10:22:00 Test Item Value Reference Range Interpretation Comments Chloride Lvl (test code = Chloride Lvl) 107 95-109 N [facility] HospitalIwismguHZZELMODU0207-43-74 10:22:00 Test Item Value Reference Range Interpretation Comments Potassium Lvl (test code = Potassium 3.0 3.5-5.1 A Lvl) [facility] HospitalSmkwgwcTXWXNFDGJ3019-66-34 10:22:00 Test Item Value Reference Range Interpretation Comments Sodium Lvl (test code = Sodium Lvl) 141 135-145 N [facility] HospitalPotdttpAMQHMWHGU8457-77-87 10:22:00 Test Item Value Reference Range Interpretation Comments Creatinine Lvl (test code = Creatinine 0.6 0.5-1.4 N Lvl) [facility] HospitalNvltowaLKZYOLCAS5342-73-57 10:22:00 Test Item Value Reference Range Interpretation Comments CO2 (test code = CO2) 23 24-32 L [facility] HospitalGdalkqgDFINGNUIS6950-95-16 10:22:00 Test Item Value Reference Range Interpretation Comments Calcium Lvl (test code = Calcium Lvl) 7.3 8.5-10.5 L [facility] HospitalGoljgscWHNAWMSXB3074-54-29 10:22:00 Test Item Value Reference Range Interpretation Comments Glucose Lvl (test code = Glucose Lvl) 136 [facility] HospitalEozhxwnTHEUPIMDL2381-57-53 10:22:00 Test Item Value Reference Range Interpretation Comments AGAP (test code = AGAP) 14.0 10.0-20.0 N [facility] HospitalZuzqyhtUQEAZSJMN7864-39-96 10:22:00 Test Item Value Reference Range Interpretation Comments BUN (test code = BUN) 5 7-22 L [facility] HospitalAvzdcozVJWGAPUCGW5785-41-17 10:22:00 Test Item Value Reference Range Interpretation Comments Segs (test code = Segs) 69.6 45.0-75.0 N [facility] HospitalZkhtyojYWFMINOKSO9517-51-44 10:22:00 Test Item Value Reference Range Interpretation Comments Lymphocytes (test code = Lymphocytes) 21.5 20.0-40.0 N [facility] HospitalOtdlrqsMACHBMFNMB7490-16-83 10:22:00 Test Item Value Reference Range Interpretation Comments Monocytes (test code = Monocytes) 7.6 2.0-12.0 N [facility] HospitalPheilomHBQCBVBPTY3349-48-85 10:22:00 Test Item Value Reference Range Interpretation Comments Eosinophils (test code = 1.0 See_Comment N [A utomated message] The Eosinophils) system which ge nerated this result tra nsmitted reference range : <=4.0. The reference r leo was not used to int erpret this result as normal/abnormal . [facility] HospitalKtipejrKHCWBJAGIA4883-07-14 10:22:00 Test Item Value Reference Range Interpretation Comments Basophils (test code = 0.3 See_Comment N [Aut omated message] The Basophils) system which ge nerated this result tra nsmitted reference range : <=1.0. The reference r leo was not used to int erpret this result as normal/abnormal . [facility] HospitalIbuocgzGDRXIUFBMR1100-65-04 10:22:00 Test Item Value Reference Range Interpretation Comments Segs-Bands # (test code = Segs-Bands #) 4.8 1.5-8.1 N [facility] HospitalOytwqzcSQLLXFPANH5854-84-36 10:22:00 Test Item Value Reference Range Interpretation Comments Eosinophils # (test code 0.1 See_Comment N [A utomated message] The = Eosinophils #) system whic h generated this result tra nsmitted reference range : <=0.5. The reference r leo was not used to int erpret this result as normal/abnormal . [facility] HospitalFxazdlpUSYOUVKHYI6124-23-39 10:22:00 Test Item Value Reference Range Interpretation Comments Lymphocytes # (test code = Lymphocytes 1.5 1.0-5.5 N #) [facility] HospitalOsvwlynDNEMOREQNO0974-32-20 10:22:00 Test Item Value Reference Range Interpretation Comments Monocytes # (test code 0.5 See_Comment N [Aut omated message] The = Monocytes #) system which generated this result tra nsmitted reference range : <=0.8. The reference r leo was not used to int erpret this result as normal/abnormal . [facility] HospitalNatzdiaWVYNWAEQDL5733-23-68 10:22:00 Test Item Value Reference Range Interpretation Comments Basophils # (test code 0.0 See_Comment N [Aut omated message] The = Basophils #) system which generated this result tra nsmitted reference range : <=0.2. The reference r leo was not used to int erpret this result as normal/abnormal . [facility] HospitalWxtdxylPRFWARADIC0909-41-71 10:22:00 Test Item Value Reference Range Interpretation Comments MPV (test code = MPV) 11.0 7.4-10.4 H [facility] HospitalFupinagUXPTQUKVPF6174-42-08 10:22:00 Test Item Value Reference Range Interpretation Comments Platelet (test code = Platelet) 161 133-450 N [facility] HospitalNjjekdlBVLJMRHGFT3332-01-36 10:22:00 Test Item Value Reference Range Interpretation Comments MCH (test code = MCH) 29.6 pg 27.0-31.0 N [facility] HospitalNbxgckoRGJOGYSNNC2044-99-22 10:22:00 Test Item Value Reference Range Interpretation Comments MCHC (test code = MCHC) 35.4 32.0-36.0 N [facility] HospitalFultyarEQKLZBKSAT4561-17-02 10:22:00 Test Item Value Reference Range Interpretation Comments RDW (test code = RDW) 14.1 11.5-14.5 N [facility] HospitalOxjgzciABSDCQGFVI9372-79-91 10:22:00 Test Item Value Reference Range Interpretation Comments WBC (test code = WBC) 6.8 3.7-10.4 N [facility] HospitalMqzyxxbKEVOYCIIKB3551-64-73 10:22:00 Test Item Value Reference Range Interpretation Comments MCV (test code = MCV) 83.5 81.0-99.0 N [facility] HospitalPcugzrtSNDUGVWAHI5314-71-75 10:22:00 Test Item Value Reference Range Interpretation Comments RBC (test code = RBC) 4.44 4.20-5.40 N [facility] HospitalFzlumrtDDODBDIKOV2237-30-19 10:22:00 Test Item Value Reference Range Interpretation Comments Hgb (test code = Hgb) 13.1 12.0-16.0 N [facility] HospitalOmjqdgkGXGOWKCVKL3107-72-90 10:22:00 Test Item Value Reference Range Interpretation Comments Hct (test code = Hct) 37.1 36.0-48.0 N [facility] HospitalDdfokvoDOQNIJTHB7299-21-89 10:22:00 Test Item Value Reference Range Interpretation Comments Phosphorus (test code = Phosphorus) 3.0 2.5-4.5 N [facility] HospitalQjedpqaYUNIZQZDD7602-73-06 10:22:00 Test Item Value Reference Range Interpretation Comments Magnesium Lvl (test code = Magnesium 1.8 1.8-2.4 N Lvl) [facility] HospitalIobghvsBFHUNCAFQ3345-29-32 10:22:00 Test Item Value Reference Range Interpretation Comments Chloride Lvl (test code = Chloride Lvl) 107 95-109 N [facility] HospitalMzyfzxcFONAOWQOP2182-12-17 10:22:00 Test Item Value Reference Range Interpretation Comments Potassium Lvl (test code = Potassium 3.0 3.5-5.1 A Lvl) [facility] HospitalHkaanjcIFBDISTQP5947-10-96 10:22:00 Test Item Value Reference Range Interpretation Comments Sodium Lvl (test code = Sodium Lvl) 141 135-145 N [facility] HospitalGryshfwNYMZFJDIZ7350-22-35 10:22:00 Test Item Value Reference Range Interpretation Comments Creatinine Lvl (test code = Creatinine 0.6 0.5-1.4 N Lvl) [facility] HospitalQevgcyjLXAOKIBIL8268-46-10 10:22:00 Test Item Value Reference Range Interpretation Comments CO2 (test code = CO2) 23 24-32 L [facility] HospitalVnqoqvoOUBWNQFAA3190-44-07 10:22:00 Test Item Value Reference Range Interpretation Comments Calcium Lvl (test code = Calcium Lvl) 7.3 8.5-10.5 L [facility] HospitalIklqugvIIDUJVKFA2725-81-15 10:22:00 Test Item Value Reference Range Interpretation Comments Glucose Lvl (test code = Glucose Lvl) 136 [facility] HospitalWlkjytyFJENKVVNF3148-13-88 10:22:00 Test Item Value Reference Range Interpretation Comments AGAP (test code = AGAP) 14.0 10.0-20.0 N [facility] HospitalPuniwdzTUVGWKTSC7383-41-71 10:22:00 Test Item Value Reference Range Interpretation Comments BUN (test code = BUN) 5 7-22 L [facility] HospitalFecycspDGMQQTLHQL7246-64-05 10:22:00 Test Item Value Reference Range Interpretation Comments Segs (test code = Segs) 69.6 45.0-75.0 N [facility] HospitalFennpabUJUEJMPHCW4153-81-90 10:22:00 Test Item Value Reference Range Interpretation Comments Lymphocytes (test code = Lymphocytes) 21.5 20.0-40.0 N [facility] HospitalFsbqhjuNWPXBQZOPC0112-33-98 10:22:00 Test Item Value Reference Range Interpretation Comments Monocytes (test code = Monocytes) 7.6 2.0-12.0 N [facility] HospitalDowjrxiREPGYTSBHI4463-13-16 10:22:00 Test Item Value Reference Range Interpretation Comments Eosinophils (test code = 1.0 See_Comment N [A utomated message] The Eosinophils) system which ge nerated this result tra nsmitted reference range : <=4.0. The reference r leo was not used to int erpret this result as normal/abnormal . [facility] HospitalKwsibirTNNMYIOXDK6452-67-37 10:22:00 Test Item Value Reference Range Interpretation Comments Basophils (test code = 0.3 See_Comment N [Aut omated message] The Basophils) system which ge nerated this result tra nsmitted reference range : <=1.0. The reference r leo was not used to int erpret this result as normal/abnormal . [facility] HospitalObipasvZIFEMFBXJG0125-69-08 10:22:00 Test Item Value Reference Range Interpretation Comments Segs-Bands # (test code = Segs-Bands #) 4.8 1.5-8.1 N [facility] HospitalWrmlpisGKBXRPGFPC0452-84-76 10:22:00 Test Item Value Reference Range Interpretation Comments Eosinophils # (test code 0.1 See_Comment N [A utomated message] The = Eosinophils #) system whic h generated this result tra nsmitted reference range : <=0.5. The reference r leo was not used to int erpret this result as normal/abnormal . [facility] HospitalVtxldikCCTNEIWTJR0392-29-03 10:22:00 Test Item Value Reference Range Interpretation Comments Lymphocytes # (test code = Lymphocytes 1.5 1.0-5.5 N #) [facility] HospitalBbvxftfEUPUZTVLKM9915-56-40 10:22:00 Test Item Value Reference Range Interpretation Comments Monocytes # (test code 0.5 See_Comment N [Aut omated message] The = Monocytes #) system which generated this result tra nsmitted reference range : <=0.8. The reference r leo was not used to int erpret this result as normal/abnormal . [facility] HospitalFpmfakgSJLVNQGTDQ2526-23-00 10:22:00 Test Item Value Reference Range Interpretation Comments Basophils # (test code 0.0 See_Comment N [Aut omated message] The = Basophils #) system which generated this result tra nsmitted reference range : <=0.2. The reference r leo was not used to int erpret this result as normal/abnormal . [facility] HospitalHypmbmkWHHQYPBHNH7190-94-91 10:22:00 Test Item Value Reference Range Interpretation Comments MPV (test code = MPV) 11.0 7.4-10.4 H [facility] HospitalBhrstlgKGWCYUDRQZ2770-20-44 10:22:00 Test Item Value Reference Range Interpretation Comments Platelet (test code = Platelet) 161 133-450 N [facility] HospitalPrxmadyFKNRLIYSFX8097-31-67 10:22:00 Test Item Value Reference Range Interpretation Comments MCH (test code = MCH) 29.6 pg 27.0-31.0 N [facility] HospitalJcptjqdNLSGRKEIME9874-79-51 10:22:00 Test Item Value Reference Range Interpretation Comments MCHC (test code = MCHC) 35.4 32.0-36.0 N [facility] HospitalRkksqkwCYWJPCNXDT7318-56-23 10:22:00 Test Item Value Reference Range Interpretation Comments RDW (test code = RDW) 14.1 11.5-14.5 N [facility] HospitalUjkfnnxLTBCYZWPCD7184-27-51 10:22:00 Test Item Value Reference Range Interpretation Comments WBC (test code = WBC) 6.8 3.7-10.4 N [facility] HospitalNyaczhpKBOHTIEOJE8742-65-15 10:22:00 Test Item Value Reference Range Interpretation Comments MCV (test code = MCV) 83.5 81.0-99.0 N [facility] HospitalEclgcceEBMNDYFOGQ7647-28-70 10:22:00 Test Item Value Reference Range Interpretation Comments RBC (test code = RBC) 4.44 4.20-5.40 N [facility] HospitalNxnozmlETKKXZXZEB8985-07-55 10:22:00 Test Item Value Reference Range Interpretation Comments Hgb (test code = Hgb) 13.1 12.0-16.0 N [facility] HospitalUxxkisjLZWVPUVNOL1606-86-03 10:22:00 Test Item Value Reference Range Interpretation Comments Hct (test code = Hct) 37.1 36.0-48.0 N [facility] GLUCOSE HSUJADX4305-82-78 02:20:00 Test Item Value Reference Range Interpretation Comments Comment1 (test code = Comment1) Notify RN/ [facility] GLUCOSE YGBWNBO5828-44-68 02:20:00 Test Item Value Reference Range Interpretation Comments Gluc POC Lifscn (test code = Gluc POC 332 65-110 H Lifscn) [facility] GLUCOSE VUQMZUN7209-73-70 02:20:00 Test Item Value Reference Range Interpretation Comments Comment1 (test code = Comment1) Notify RN/ [facility] GLUCOSE YVCYWAM5681-26-23 02:20:00 Test Item Value Reference Range Interpretation Comments Gluc POC Lifscn (test code = Gluc POC 332 65-110 H Lifscn) [facility] HospitalBqljzjzKHPBJAFFF7413-91-38 09:47:00 Test Item Value Reference Range Interpretation Comments Phosphorus (test code = Phosphorus) 2.5 2.5-4.5 N [facility] HospitalBxfshhrEPBZVBPFQ4600-92-60 09:47:00 Test Item Value Reference Range Interpretation Comments Glucose Lvl (test code = Glucose Lvl) 201 [facility] HospitalUnycbyeKVATEVASN4743-39-66 09:47:00 Test Item Value Reference Range Interpretation Comments BUN (test code = BUN) 7 7-22 N [facility] HospitalDutfnnqRDGJPCUET8260-00-95 09:47:00 Test Item Value Reference Range Interpretation Comments CO2 (test code = CO2) 19 24-32 L [facility]VxswvvsXLFVKWZUA9798-11-10 09:47:00 Test Item Value Reference Range Interpretation Comments Creatinine Lvl (test code = Creatinine 0.3 0.5-1.4 L Lvl) [facility] HospitalAsuksyjYHBWZHLHQ8836-64-31 09:47:00 Test Item Value Reference Range Interpretation Comments Sodium Lvl (test code = Sodium Lvl) 137 135-145 N [facility] HospitalAtfckzaNEZWSLPQT0205-59-94 09:47:00 Test Item Value Reference Range Interpretation Comments Chloride Lvl (test code = Chloride Lvl) 103 95-109 N [facility] HospitalIakqfbhLIJZWBLSC5001-15-38 09:47:00 Test Item Value Reference Range Interpretation Comments Potassium Lvl (test code = Potassium 3.6 3.5-5.1 N Lvl) [facility] HospitalYrbszduTSOXDFINJ8226-42-41 09:47:00 Test Item Value Reference Range Interpretation Comments Calcium Lvl (test code = Calcium Lvl) 7.9 8.5-10.5 L [facility] HospitalZxaywmkQXQVFAJKS0881-64-31 09:47:00 Test Item Value Reference Range Interpretation Comments AGAP (test code = AGAP) 18.6 10.0-20.0 N [facility] HospitalVfmgxwcTKAAJGWPJ8368-10-12 09:47:00 Test Item Value Reference Range Interpretation Comments Magnesium Lvl (test code = Magnesium 1.6 1.8-2.4 L Lvl) [facility] HospitalCdozzarCFQWBFFTDX3556-62-69 09:47:00 Test Item Value Reference Range Interpretation Comments Basophils # (test code 0.0 See_Comment N [Aut omated message] The = Basophils #) system which generated this result tra nsmitted reference range : <=0.2. The reference r leo was not used to int erpret this result as normal/abnormal . [facility] HospitalOcjkrohZBFTGKMGBC8242-92-71 09:47:00 Test Item Value Reference Range Interpretation Comments Eosinophils (test code = 0.4 See_Comment N [A utomated message] The Eosinophils) system which ge nerated this result tra nsmitted reference range : <=4.0. The reference r leo was not used to int erpret this result as normal/abnormal . [facility] HospitalDbvguyzSUTVTJJOLW9488-87-12 09:47:00 Test Item Value Reference Range Interpretation Comments Basophils (test code = 0.5 See_Comment N [Aut omated message] The Basophils) system which ge nerated this result tra nsmitted reference range : <=1.0. The reference r leo was not used to int erpret this result as normal/abnormal . [facility] HospitalPyvrawyCOCYVZMWTN1335-93-37 09:47:00 Test Item Value Reference Range Interpretation Comments Segs-Bands # (test code = Segs-Bands #) 5.9 1.5-8.1 N [facility] HospitalHqtyeelRORXRQSBFS6738-39-16 09:47:00 Test Item Value Reference Range Interpretation Comments Lymphocytes # (test code = Lymphocytes 1.2 1.0-5.5 N #) [facility] HospitalCqsoumsXQDRQGZNUV2129-99-91 09:47:00 Test Item Value Reference Range Interpretation Comments Monocytes # (test code 0.5 See_Comment N [Aut omated message] The = Monocytes #) system which generated this result tra nsmitted reference range : <=0.8. The reference r leo was not used to int erpret this result as normal/abnormal . [facility] HospitalKtbulwuWPAYIONHFE0823-46-07 09:47:00 Test Item Value Reference Range Interpretation Comments Eosinophils # (test code 0.0 See_Comment N [A utomated message] The = Eosinophils #) system whic h generated this result tra nsmitted reference range : <=0.5. The reference r leo was not used to int erpret this result as normal/abnormal . [facility] HospitalQzzabdsAIFCFRMYXH2156-20-62 09:47:00 Test Item Value Reference Range Interpretation Comments Segs (test code = Segs) 76.9 45.0-75.0 H [facility] HospitalVnbdjszHMWLDJTHXX8044-69-94 09:47:00 Test Item Value Reference Range Interpretation Comments Lymphocytes (test code = Lymphocytes) 15.9 20.0-40.0 L [facility] HospitalVflszlhQPEMLCNNIZ1217-84-22 09:47:00 Test Item Value Reference Range Interpretation Comments Monocytes (test code = Monocytes) 6.3 2.0-12.0 N [facility] HospitalUzqemrwZVSKLBUTNO5085-13-90 09:47:00 Test Item Value Reference Range Interpretation Comments MCV (test code = MCV) 82.8 81.0-99.0 N [facility] HospitalTokepwxPLKROBTLYG2608-54-17 09:47:00 Test Item Value Reference Range Interpretation Comments Hct (test code = Hct) 39.7 36.0-48.0 N [facility] HospitalUjvmdvaFPQANPUYDL9130-39-20 09:47:00 Test Item Value Reference Range Interpretation Comments MCH (test code = MCH) 29.1 pg 27.0-31.0 N [facility] HospitalEovftnaGNBTNBFQDQ1289-72-63 09:47:00 Test Item Value Reference Range Interpretation Comments Hgb (test code = Hgb) 14.0 12.0-16.0 N [facility] HospitalPqdjgjfFJTRADZJPA7105-08-13 09:47:00 Test Item Value Reference Range Interpretation Comments MCHC (test code = MCHC) 35.2 32.0-36.0 N [facility] HospitalDxchnrqPUBJVQSSPL9883-34-87 09:47:00 Test Item Value Reference Range Interpretation Comments RDW (test code = RDW) 13.9 11.5-14.5 N [facility] HospitalVyobjacPUVLMVDSRN9398-87-90 09:47:00 Test Item Value Reference Range Interpretation Comments Platelet (test code = Platelet) 160 133-450 N [facility] HospitalUecslevECMGTFKGKZ0037-97-14 09:47:00 Test Item Value Reference Range Interpretation Comments MPV (test code = MPV) 11.9 7.4-10.4 H [facility] HospitalYozjfaiYZFCBPHVTW6067-48-10 09:47:00 Test Item Value Reference Range Interpretation Comments WBC (test code = WBC) 7.7 3.7-10.4 N [facility] HospitalXdkigglFHWXWHEQAS3147-81-01 09:47:00 Test Item Value Reference Range Interpretation Comments RBC (test code = RBC) 4.80 4.20-5.40 N [facility] HospitalCanaljiTGMPKWMBH5418-75-04 09:47:00 Test Item Value Reference Range Interpretation Comments Phosphorus (test code = Phosphorus) 2.5 2.5-4.5 N [facility] HospitalGlwbygbVWMAUNDWX3398-43-51 09:47:00 Test Item Value Reference Range Interpretation Comments Glucose Lvl (test code = Glucose Lvl) 201 [facility] HospitalBewcttfZTMNYKDIY3718-12-62 09:47:00 Test Item Value Reference Range Interpretation Comments BUN (test code = BUN) 7 7-22 N [facility] HospitalPpjbbvzJZZTBYZRD8248-70-38 09:47:00 Test Item Value Reference Range Interpretation Comments CO2 (test code = CO2) 19 24-32 L [facility] HospitalYrttwssOGDSGJFHF3493-14-65 09:47:00 Test Item Value Reference Range Interpretation Comments Creatinine Lvl (test code = Creatinine 0.3 0.5-1.4 L Lvl) [facility] HospitalKzwutxdLLXSYHJTC7021-05-49 09:47:00 Test Item Value Reference Range Interpretation Comments Sodium Lvl (test code = Sodium Lvl) 137 135-145 N [facility] HospitalHgpgowcAYIBHYAYN2485-51-59 09:47:00 Test Item Value Reference Range Interpretation Comments Chloride Lvl (test code = Chloride Lvl) 103 95-109 N [facility] HospitalNosnruvCDEEYVMEX2184-62-77 09:47:00 Test Item Value Reference Range Interpretation Comments Potassium Lvl (test code = Potassium 3.6 3.5-5.1 N Lvl) [facility] HospitalYoentzhZRRJZSLYZ3327-25-09 09:47:00 Test Item Value Reference Range Interpretation Comments Calcium Lvl (test code = Calcium Lvl) 7.9 8.5-10.5 L [facility] HospitalDckzqcpCGIGKPZVO0971-26-21 09:47:00 Test Item Value Reference Range Interpretation Comments AGAP (test code = AGAP) 18.6 10.0-20.0 N [facility] HospitalCdnnzumKNFXXCOLS4690-24-22 09:47:00 Test Item Value Reference Range Interpretation Comments Magnesium Lvl (test code = Magnesium 1.6 1.8-2.4 L Lvl) [facility] HospitalCkjqnukOJNFJFEZDF4483-16-75 09:47:00 Test Item Value Reference Range Interpretation Comments Basophils # (test code 0.0 See_Comment N [Aut omated message] The = Basophils #) system which generated this result tra nsmitted reference range : <=0.2. The reference r leo was not used to int erpret this result as normal/abnormal . [facility] HospitalMlimldaUBBUCPEERV9608-71-06 09:47:00 Test Item Value Reference Range Interpretation Comments Eosinophils (test code = 0.4 See_Comment N [A utomated message] The Eosinophils) system which ge nerated this result tra nsmitted reference range : <=4.0. The reference r leo was not used to int erpret this result as normal/abnormal . [facility] HospitalFhdjhaqTRWVWVDXUE4643-39-84 09:47:00 Test Item Value Reference Range Interpretation Comments Basophils (test code = 0.5 See_Comment N [Aut omated message] The Basophils) system which ge nerated this result tra nsmitted reference range : <=1.0. The reference r leo was not used to int erpret this result as normal/abnormal . [facility] HospitalHjltsbbLXNDKMKIBN0401-48-06 09:47:00 Test Item Value Reference Range Interpretation Comments Segs-Bands # (test code = Segs-Bands #) 5.9 1.5-8.1 N [facility] HospitalSvftjjkPFQSQATJDV5359-80-48 09:47:00 Test Item Value Reference Range Interpretation Comments Lymphocytes # (test code = Lymphocytes 1.2 1.0-5.5 N #) [facility] HospitalWtszjksKWDPETTHLZ9475-03-10 09:47:00 Test Item Value Reference Range Interpretation Comments Monocytes # (test code 0.5 See_Comment N [Aut omated message] The = Monocytes #) system which generated this result tra nsmitted reference range : <=0.8. The reference r leo was not used to int erpret this result as normal/abnormal . [facility] HospitalRgcjeabBFTAHDSHAD7044-64-25 09:47:00 Test Item Value Reference Range Interpretation Comments Eosinophils # (test code 0.0 See_Comment N [A utomated message] The = Eosinophils #) system whic h generated this result tra nsmitted reference range : <=0.5. The reference r leo was not used to int erpret this result as normal/abnormal . [facility] HospitalUifbiirKQPICVEFIP0812-21-29 09:47:00 Test Item Value Reference Range Interpretation Comments Segs (test code = Segs) 76.9 45.0-75.0 H [facility] HospitalActcskuPHLRBWVNKQ6978-20-98 09:47:00 Test Item Value Reference Range Interpretation Comments Lymphocytes (test code = Lymphocytes) 15.9 20.0-40.0 L [facility] HospitalNkgxyiaVKLXTDAUIF0148-65-03 09:47:00 Test Item Value Reference Range Interpretation Comments Monocytes (test code = Monocytes) 6.3 2.0-12.0 N [facility] HospitalMjxpbrlNLMICHKQCP4096-50-32 09:47:00 Test Item Value Reference Range Interpretation Comments MCV (test code = MCV) 82.8 81.0-99.0 N [facility] HospitalEurvpdoPYUSUNWUPX1277-30-34 09:47:00 Test Item Value Reference Range Interpretation Comments Hct (test code = Hct) 39.7 36.0-48.0 N [facility] HospitalMcykvpaGKVYSZHWMW8921-97-82 09:47:00 Test Item Value Reference Range Interpretation Comments MCH (test code = MCH) 29.1 pg 27.0-31.0 N [facility] HospitalZtvbzfmGSYXNOIHBC3247-62-47 09:47:00 Test Item Value Reference Range Interpretation Comments Hgb (test code = Hgb) 14.0 12.0-16.0 N [facility] HospitalFobgmkcCKISYDPOMK5168-44-02 09:47:00 Test Item Value Reference Range Interpretation Comments MCHC (test code = MCHC) 35.2 32.0-36.0 N [facility] HospitalNisqpatGJMEFCQROY3086-01-75 09:47:00 Test Item Value Reference Range Interpretation Comments RDW (test code = RDW) 13.9 11.5-14.5 N [facility] HospitalBpovbabVFDVIRYPVP9341-02-13 09:47:00 Test Item Value Reference Range Interpretation Comments Platelet (test code = Platelet) 160 133-450 N [facility] HospitalDwkqsxwOPMHDVRPBE3730-93-25 09:47:00 Test Item Value Reference Range Interpretation Comments MPV (test code = MPV) 11.9 7.4-10.4 H [facility] HospitalIngrkvrZHKGVBWZNQ5610-43-00 09:47:00 Test Item Value Reference Range Interpretation Comments WBC (test code = WBC) 7.7 3.7-10.4 N [facility] HospitalAupikozRGFZJOZLUX3005-62-67 09:47:00 Test Item Value Reference Range Interpretation Comments RBC (test code = RBC) 4.80 4.20-5.40 N [facility] HospitalXlnvywcVCEFBNPNK0090-33-31 10:28:00 Test Item Value Reference Range Interpretation Comments Phosphorus (test code = Phosphorus) 2.6 2.5-4.5 N [facility] HospitalYgqxoieZYUKHOIMA3538-22-09 10:28:00 Test Item Value Reference Range Interpretation Comments Magnesium Lvl (test code = Magnesium 1.8 1.8-2.4 N Lvl) [facility] HospitalXnrynrxSOPIIOECV1798-31-21 10:28:00 Test Item Value Reference Range Interpretation Comments Potassium Lvl (test code = Potassium 3.7 3.5-5.1 N Lvl) [facility] HospitalJdkkyeiOUTBLKDLI0540-94-15 10:28:00 Test Item Value Reference Range Interpretation Comments Sodium Lvl (test code = Sodium Lvl) 137 135-145 N [facility] HospitalLqpmheeQVGJLORAB1431-29-30 10:28:00 Test Item Value Reference Range Interpretation Comments Creatinine Lvl (test code = Creatinine 0.6 0.5-1.4 N Lvl) [facility] HospitalKdobtfiWMMMSCFLD3585-80-65 10:28:00 Test Item Value Reference Range Interpretation Comments BUN (test code = BUN) 16 7-22 N [facility] HospitalLirpgnxJIFTHYBEV5631-25-40 10:28:00 Test Item Value Reference Range Interpretation Comments Glucose Lvl (test code = Glucose Lvl) 200 [facility] HospitalMdzicabVVTXBOKQV1742-41-00 10:28:00 Test Item Value Reference Range Interpretation Comments Calcium Lvl (test code = Calcium Lvl) 8.3 8.5-10.5 L [facility] HospitalNmimlolYYDVXJSXM9009-66-50 10:28:00 Test Item Value Reference Range Interpretation Comments AGAP (test code = AGAP) 19.7 10.0-20.0 N [facility] HospitalYadldfbSDCUBSGIV2705-67-26 10:28:00 Test Item Value Reference Range Interpretation Comments Chloride Lvl (test code = Chloride Lvl) 99 95-109 N [facility] HospitalFugneinXYMZMOVEZ5886-39-80 10:28:00 Test Item Value Reference Range Interpretation Comments CO2 (test code = CO2) 22 24-32 L [facility] HospitalUdfnjhhCDMDQMHLOE9566-72-74 10:28:00 Test Item Value Reference Range Interpretation Comments Platelet (test code = Platelet) 172 133-450 N [facility] HospitalPdtxrkjBSVJWKMBED3738-59-40 10:28:00 Test Item Value Reference Range Interpretation Comments MPV (test code = MPV) 12.0 7.4-10.4 H [facility] HospitalMvuwgysFKZNONOYCH2102-60-63 10:28:00 Test Item Value Reference Range Interpretation Comments WBC (test code = WBC) 7.3 3.7-10.4 N [facility] HospitalTgxgdscZSRERMVZPB6325-64-71 10:28:00 Test Item Value Reference Range Interpretation Comments RDW (test code = RDW) 14.6 11.5-14.5 H [facility] HospitalPjwlnodOEHJVRMLNA2688-94-29 10:28:00 Test Item Value Reference Range Interpretation Comments MCHC (test code = MCHC) 35.0 32.0-36.0 N [facility] HospitalGuaspkqEMRWBPTBPG6459-86-90 10:28:00 Test Item Value Reference Range Interpretation Comments RBC (test code = RBC) 4.54 4.20-5.40 N [facility] HospitalZmawtkqOOXNPTTFHC5156-59-86 10:28:00 Test Item Value Reference Range Interpretation Comments Hct (test code = Hct) 37.6 36.0-48.0 N [facility] HospitalEtifvbfUPGTJSGQUJ0217-07-68 10:28:00 Test Item Value Reference Range Interpretation Comments MCV (test code = MCV) 82.9 81.0-99.0 N [facility] HospitalQrxiubyLLOHTRUMLK1106-36-44 10:28:00 Test Item Value Reference Range Interpretation Comments MCH (test code = MCH) 29.0 pg 27.0-31.0 N [facility] HospitalNymckusIOIKEZLRTD5722-03-83 10:28:00 Test Item Value Reference Range Interpretation Comments Hgb (test code = Hgb) 13.2 12.0-16.0 N [facility] HospitalFsqdcklHYKFNQGNVG1894-65-02 10:28:00 Test Item Value Reference Range Interpretation Comments Elliptocyte (test code = Slight A Elliptocyte) *ABN*(08/21/2011 04:28:00) [facility] HospitalElnabueURLPRNYNRC8180-27-02 10:28:00 Test Item Value Reference Range Interpretation Comments Polychrom (test code = Slight (08/21/2011 N Polychrom) 04:28:00) [facility] HospitalDtzbgmyMEKPFJKIXI3935-93-83 10:28:00 Test Item Value Reference Range Interpretation Comments Basophils # (test code 0.0 See_Comment N [Aut omated message] The = Basophils #) system which generated this result tra nsmitted reference range : <=0.2. The reference r leo was not used to int erpret this result as normal/abnormal . [facility] HospitalFsswltbPLHIXESGIK5909-90-28 10:28:00 Test Item Value Reference Range Interpretation Comments Hypochrom (test code = Slight (08/21/2011 N Hypochrom) 04:28:00) [facility] HospitalLrviphnSJHUMYZWYQ3027-56-70 10:28:00 Test Item Value Reference Range Interpretation Comments Monocytes # (test code 0.6 See_Comment N [Aut omated message] The = Monocytes #) system which generated this result tra nsmitted reference range : <=0.8. The reference r leo was not used to int erpret this result as normal/abnormal . [facility] HospitalEnnosseEXBWCXVRGE0383-29-15 10:28:00 Test Item Value Reference Range Interpretation Comments Eosinophils # (test code 0.0 See_Comment N [A utomated message] The = Eosinophils #) system whic h generated this result tra nsmitted reference range : <=0.5. The reference r leo was not used to int erpret this result as normal/abnormal . [facility] HospitalNslzzoqUCIVPZMXSR1257-00-40 10:28:00 Test Item Value Reference Range Interpretation Comments Segs-Bands # (test code = Segs-Bands #) 5.3 1.5-8.1 N [facility] HospitalKscjyifRJEUUBFAFX8488-64-37 10:28:00 Test Item Value Reference Range Interpretation Comments Lymphocytes # (test code = Lymphocytes 1.3 1.0-5.5 N #) [facility] HospitalFkxytysWPWCGRNPAX9692-48-93 10:28:00 Test Item Value Reference Range Interpretation Comments Basophils (test code = 0.5 See_Comment N [Aut omated message] The Basophils) system which ge nerated this result tra nsmitted reference range : <=1.0. The reference r leo was not used to int erpret this result as normal/abnormal . [facility] HospitalAjruuowJKMRSSPDTY7579-76-29 10:28:00 Test Item Value Reference Range Interpretation Comments Monocytes (test code = Monocytes) 8.5 2.0-12.0 N [facility] HospitalQhdleueGROVXBWQAS2686-32-07 10:28:00 Test Item Value Reference Range Interpretation Comments Eosinophils (test code = 0.3 See_Comment N [A utomated message] The Eosinophils) system which ge nerated this result tra nsmitted reference range : <=4.0. The reference r leo was not used to int erpret this result as normal/abnormal . [facility] HospitalLicgtjiGKWWKLWVJK2945-52-33 10:28:00 Test Item Value Reference Range Interpretation Comments Lymphocytes (test code = Lymphocytes) 17.3 20.0-40.0 L [facility] HospitalEpyhrsvKAEDFVIOYI4700-37-86 10:28:00 Test Item Value Reference Range Interpretation Comments Segs (test code = Segs) 73.4 45.0-75.0 N [facility] HospitalZwfszylYPQBYFTME9056-17-37 10:28:00 Test Item Value Reference Range Interpretation Comments Phosphorus (test code = Phosphorus) 2.6 2.5-4.5 N [facility] HospitalDfpzkkcGRMARWDFG0488-70-94 10:28:00 Test Item Value Reference Range Interpretation Comments Magnesium Lvl (test code = Magnesium 1.8 1.8-2.4 N Lvl) [facility] HospitalQsfvrzdDEQLWJIKF1466-04-68 10:28:00 Test Item Value Reference Range Interpretation Comments Potassium Lvl (test code = Potassium 3.7 3.5-5.1 N Lvl) [facility] HospitalLbiyetlQGFJOJGLG8006-51-30 10:28:00 Test Item Value Reference Range Interpretation Comments Sodium Lvl (test code = Sodium Lvl) 137 135-145 N [facility] HospitalVdwhpewJRDBTKBPQ6103-47-62 10:28:00 Test Item Value Reference Range Interpretation Comments Creatinine Lvl (test code = Creatinine 0.6 0.5-1.4 N Lvl) [facility] HospitalRqcxucwCLJPWXTCV7787-44-98 10:28:00 Test Item Value Reference Range Interpretation Comments BUN (test code = BUN) 16 7-22 N [facility] HospitalHlolrffYZUCXXWSW4637-55-73 10:28:00 Test Item Value Reference Range Interpretation Comments Glucose Lvl (test code = Glucose Lvl) 200 [facility] HospitalOhqbdmiHBVVNAVLX8045-17-72 10:28:00 Test Item Value Reference Range Interpretation Comments Calcium Lvl (test code = Calcium Lvl) 8.3 8.5-10.5 L [facility] HospitalMpixmzfQIEONBHOR4221-65-97 10:28:00 Test Item Value Reference Range Interpretation Comments AGAP (test code = AGAP) 19.7 10.0-20.0 N [facility] HospitalDfaidvhFOQXITUTS1034-61-13 10:28:00 Test Item Value Reference Range Interpretation Comments Chloride Lvl (test code = Chloride Lvl) 99 95-109 N [facility] HospitalEnzmzoeJSLRPVPFR5016-43-13 10:28:00 Test Item Value Reference Range Interpretation Comments CO2 (test code = CO2) 22 24-32 L [facility] HospitalSqxrqobNMATKBFUMY5126-82-89 10:28:00 Test Item Value Reference Range Interpretation Comments Platelet (test code = Platelet) 172 133-450 N [facility] HospitalHgryytuOPUWMARAMO1745-73-24 10:28:00 Test Item Value Reference Range Interpretation Comments MPV (test code = MPV) 12.0 7.4-10.4 H [facility] HospitalCboanggDDMZNZEJIJ8133-86-67 10:28:00 Test Item Value Reference Range Interpretation Comments WBC (test code = WBC) 7.3 3.7-10.4 N [facility] HospitalGswqslaQESYJMABPW2269-91-19 10:28:00 Test Item Value Reference Range Interpretation Comments RDW (test code = RDW) 14.6 11.5-14.5 H [facility] HospitalFldcofmWPMKHNNDZS3630-55-85 10:28:00 Test Item Value Reference Range Interpretation Comments MCHC (test code = MCHC) 35.0 32.0-36.0 N [facility] HospitalJatbsqiCOFHLXHJWV3166-48-47 10:28:00 Test Item Value Reference Range Interpretation Comments RBC (test code = RBC) 4.54 4.20-5.40 N [facility] HospitalIonskwbNVTKZZFPVG8219-92-08 10:28:00 Test Item Value Reference Range Interpretation Comments Hct (test code = Hct) 37.6 36.0-48.0 N [facility] HospitalCispsiiMKUZFOMXIO2255-50-41 10:28:00 Test Item Value Reference Range Interpretation Comments MCV (test code = MCV) 82.9 81.0-99.0 N [facility] HospitalIsskhnzZTMXZARGDG3446-27-59 10:28:00 Test Item Value Reference Range Interpretation Comments MCH (test code = MCH) 29.0 pg 27.0-31.0 N [facility] HospitalQudnlcdJPSWCVUOPY9464-03-75 10:28:00 Test Item Value Reference Range Interpretation Comments Hgb (test code = Hgb) 13.2 12.0-16.0 N [facility] HospitalFwghklnGPTOZTUBFN7679-04-26 10:28:00 Test Item Value Reference Range Interpretation Comments Elliptocyte (test code = Slight A Elliptocyte) *ABN*(08/21/2011 04:28:00) [facility] HospitalNhdkxuhPPFSUGASSS0053-87-45 10:28:00 Test Item Value Reference Range Interpretation Comments Polychrom (test code = Slight (08/21/2011 N Polychrom) 04:28:00) [facility] HospitalUlwrnvxXYGWLEAGHY3804-58-26 10:28:00 Test Item Value Reference Range Interpretation Comments Basophils # (test code 0.0 See_Comment N [Aut omated message] The = Basophils #) system which generated this result tra nsmitted reference range : <=0.2. The reference r leo was not used to int erpret this result as normal/abnormal . [facility] HospitalKzacjdtKBWKPSWBOI0446-06-78 10:28:00 Test Item Value Reference Range Interpretation Comments Hypochrom (test code = Slight (08/21/2011 N Hypochrom) 04:28:00) [facility] HospitalKnkpjwcYBWQTFGYTJ2811-18-23 10:28:00 Test Item Value Reference Range Interpretation Comments Monocytes # (test code 0.6 See_Comment N [Aut omated message] The = Monocytes #) system which generated this result tra nsmitted reference range : <=0.8. The reference r leo was not used to int erpret this result as normal/abnormal . [facility] HospitalJfjhpagHRIILGWLYK7612-71-67 10:28:00 Test Item Value Reference Range Interpretation Comments Eosinophils # (test code 0.0 See_Comment N [A utomated message] The = Eosinophils #) system whic h generated this result tra nsmitted reference range : <=0.5. The reference r leo was not used to int erpret this result as normal/abnormal . [facility] HospitalDjzbezdIVFQLBFUFW3503-14-37 10:28:00 Test Item Value Reference Range Interpretation Comments Segs-Bands # (test code = Segs-Bands #) 5.3 1.5-8.1 N [facility] HospitalHiicmjnLDQKTRPUWX4337-75-05 10:28:00 Test Item Value Reference Range Interpretation Comments Lymphocytes # (test code = Lymphocytes 1.3 1.0-5.5 N #) [facility]ZnkpvncHWFLFVDQRP0918-97-33 10:28:00 Test Item Value Reference Range Interpretation Comments Basophils (test code = 0.5 See_Comment N [Aut omated message] The Basophils) system which ge nerated this result tra nsmitted reference range : <=1.0. The reference r leo was not used to int erpret this result as normal/abnormal . [facility] HospitalPcduzomYKFLFMRYOK9241-59-05 10:28:00 Test Item Value Reference Range Interpretation Comments Monocytes (test code = Monocytes) 8.5 2.0-12.0 N [facility] HospitalGawrvunTJEEPGOVWR8444-97-80 10:28:00 Test Item Value Reference Range Interpretation Comments Eosinophils (test code = 0.3 See_Comment N [A utomated message] The Eosinophils) system which ge nerated this result tra nsmitted reference range : <=4.0. The reference r leo was not used to int erpret this result as normal/abnormal . [facility] HospitalCvmzjkhJEYEMLCPZA7672-60-87 10:28:00 Test Item Value Reference Range Interpretation Comments Lymphocytes (test code = Lymphocytes) 17.3 20.0-40.0 L [facility] HospitalKbuwbhpCULUYRICPG3711-30-96 10:28:00 Test Item Value Reference Range Interpretation Comments Segs (test code = Segs) 73.4 45.0-75.0 N [facility] GLUCOSE VUCGALP0432-84-84 07:47:00 Test Item Value Reference Range Interpretation Comments Comment2 (test code = Comment2) Verify w/Lab [facility] GLUCOSE EAVDIZO9565-54-46 07:47:00 Test Item Value Reference Range Interpretation Comments Comment2 (test code = Comment2) [facility]ZzxmakwLHRXDINJY8187-79-53 21:58:00 Test Item Value Reference Range Interpretation Comments S Preg (test code = S Negative (08/19/2011 N Preg) 15:58:00) [facility] HospitalNgitablHESMLAFBD6468-06-54 21:58:00 Test Item Value Reference Range Interpretation Comments Lipase Lvl (test code = Lipase Lvl) 169 73-393 N [facility] HospitalRerqnfaGCATEKXJR6522-30-73 21:58:00 Test Item Value Reference Range Interpretation Comments ALT (test code = ALT) 54 See_Comment N [Auto mated message] The system which ge nerated this result transmit rohit reference range : <=65. The reference range was not used to interpr et this result as reji l/abnormal. [facility] HospitalWmrxpgqIUFREJDUN8486-81-75 21:58:00 Test Item Value Reference Range Interpretation Comments Alk Phos (test code = Alk Phos) 110 39-136 N [facility] HospitalLpzyrjtIXSQTOTFN7633-59-33 21:58:00 Test Item Value Reference Range Interpretation Comments Bili Direct (test code 0.1 See_Comment N [Aut omated message] The = Bili Direct) system which generated this result tra nsmitted reference range : <=0.3. The reference r leo was not used to int erpret this result as reji l/abnormal. [facility] HospitalOnvksiiKSBUQWGVJ1023-67-76 21:58:00 Test Item Value Reference Range Interpretation Comments Bili Total (test code = Bili Total) 0.9 0.2-1.3 N [facility] HospitalQgiqpawVDYLFDRQD7346-39-40 21:58:00 Test Item Value Reference Range Interpretation Comments Albumin Lvl (test code = Albumin Lvl) 4.4 3.5-5.0 N [facility] HospitalEfebkonPWTNCZMJC3952-09-72 21:58:00 Test Item Value Reference Range Interpretation Comments Total Protein (test code = Total 8.8 6.4-8.4 H Protein) [facility] HospitalBdsnrqhYSHELQVQU1793-22-19 21:58:00 Test Item Value Reference Range Interpretation Comments Bili Indirect (test 0.8 See_Comment N [Automa rohit message] The code = Bili Indirect) system which generated this result tra nsmitted reference range : <=1.0. The reference r leo was not used to int erpret this result as normal/abnormal . [facility]QhiufxsWJKUTAQIB7058-81-99 21:58:00 Test Item Value Reference Range Interpretation Comments AST (test code = AST) 36 See_Comment N [Auto mated message] The system which ge nerated this result transmit rohit reference range : <=37. The reference range was not used to interpr et this result as reji l/abnormal. [facility] CypressSlgbxdvMVVVKLTCS6869-43-25 21:58:00 Test Item Value Reference Range Interpretation Comments Globulin (test code = Globulin) 4.4 2.0-4.0 H [facility] CypressRcrzccsSHKVRRLSD5820-49-27 21:58:00 Test Item Value Reference Range Interpretation Comments A/G Ratio (test code = A/G Ratio) 1.0 0.7-1.6 N [facility] AzleYerffhiHIMSPPJKOZ6032-67-94 21:58:00 Test Item Value Reference Range Interpretation Comments UA Bacteria (test code Occasional /HPF N = UA Bacteria) (08/19/2011 15:58:00) [facility] HospitalLvwmqwoFOXGMZOUYM8580-92-75 21:58:00 Test Item Value Reference Range Interpretation Comments UA RBC (test 3-5 /HPF See_Comment A [Automated mes pastor] code = UA RBC) *ABN*(08/19/2011 The syste m which 15:58:00) generated this result transmitted ref erence range: <=2. The reference range was not used to int erpret this result as normal/abnormal . [facility] CypressBxuyeouLGZTQVYCFJ4479-71-36 21:58:00 Test Item Value Reference Range Interpretation Comments UA WBC (test code = 3 See_Comment [Automa rohit message] The UA WBC) system which ge nerated this result transmit rohit reference range : <=5. The reference range was not used to interpr et this result as reji l/abnormal. [facility] HospitalKwbsaepBSEPWEXTPG0335-12-13 21:58:00 Test Item Value Reference Range Interpretation Comments UA Mucus (test code = Few /LPF (08/19/2011 N UA Mucus) 15:58:00) [facility] HospitalZettestRPFCGFHMZS5606-59-75 21:58:00 Test Item Value Reference Range Interpretation Comments UA Amorph Destiny (test Occasional /HPF A code = UA Amorph *ABN*(08/19/2011 Destiny) 15:58:00) [facility] AzleBkngfvuMQWNUYKOBU7368-12-50 21:58:00 Test Item Value Reference Range Interpretation Comments UA Urobilinogen (test code = UA 0.2 0.1-1.0 N Urobilinogen) [facility] ArlingtonRdojjkoPKWFBVWGRS2795-08-05 21:58:00 Test Item Value Reference Range Interpretation Comments UA Sq Epi (test code = Rare /LPF (08/19/2011 N UA Sq Epi) 15:58:00) [facility] AzleFsdsavbNAZMGJBUYW6995-37-55 21:58:00 Test Item Value Reference Range Interpretation Comments Micro? (test code = Performed (08/19/2011 N Micro?) 15:58:00) [facility] ArlingtonCovlqalDCLYGBEETT0259-48-25 21:58:00 Test Item Value Reference Range Interpretation Comments UA Leuk Est (test Negative (08/19/2011 N code = UA Leuk Est) 15:58:00) [facility] AzleOkrlhaoSENUBSSRDQ1030-35-85 21:58:00 Test Item Value Reference Range Interpretation Comments UA Nitrite (test code Negative (08/19/2011 N = UA Nitrite) 15:58:00) [facility] AzleZrautbxDENKMPUJYW9962-32-55 21:58:00 Test Item Value Reference Range Interpretation Comments UA pH (test code = UA pH) 5.5 1 5.0-8.0 N [facility] AzleGpyyitlRXUTIULWYP9739-17-61 21:58:00 Test Item Value Reference Range Interpretation Comments UA Blood (test code = Trace *ABN*(08/19/2011 A UA Blood) 15:58:00) [facility] AzleZhvfpgnQXERURJGTC6620-22-98 21:58:00 Test Item Value Reference Range Interpretation Comments UA Bili (test code = Negative (08/19/2011 N UA Bili) 15:58:00) [facility] AzleFqihcofXZJMXZXVLT1456-04-84 21:58:00 Test Item Value Reference Range Interpretation Comments UA Ketones (test code = 80 mg/dL A UA Ketones) *ABN*(08/19/2011 15:58:00) [facility] AzleBcsyroeDSYJNHDBQJ4826-16-12 21:58:00 Test Item Value Reference Range Interpretation Comments UA Glucose (test code = >=1000 mg/dL A UA Glucose) *ABN*(08/19/2011 15:58:00) [facility] ArlingtonXjvajzfHUFEASYBGV9312-56-05 21:58:00 Test Item Value Reference Range Interpretation Comments UA Protein (test code Negative (08/19/2011 N = UA Protein) 15:58:00) [facility] ArlingtonZlbatdyTSAEHDAIEN4852-34-63 21:58:00 Test Item Value Reference Range Interpretation Comments UA Turbidity (test code Slight Cloudy N = UA Turbidity) (08/19/2011 15:58:00) [facility] ArlingtonPxeqccyRQFVICSHLG5106-00-00 21:58:00 Test Item Value Reference Range Interpretation Comments UA Spec Grav (test code = UA Spec 1.025 1 Grav) [facility] ArlingtonLmoumpwMTAXOXZJSG1390-20-51 21:58:00 Test Item Value Reference Range Interpretation Comments UA Color (test code = Yellow (08/19/2011 N UA Color) 15:58:00) [facility] HospitalKrrorwpENDJMMYQZ2267-35-43 21:58:00 Test Item Value Reference Range Interpretation Comments S Preg (test code = S Negative (08/19/2011 N Preg) 15:58:00) [facility] HospitalKogtxbcVRLZYRGMW9572-42-20 21:58:00 Test Item Value Reference Range Interpretation Comments Lipase Lvl (test code = Lipase Lvl) 169 73-393 N [facility] HospitalRhubktjKWWYQFCCN9931-09-25 21:58:00 Test Item Value Reference Range Interpretation Comments ALT (test code = ALT) 54 See_Comment N [Auto mated message] The system which ge nerated this result transmit rohit reference range : <=65. The reference range was not used to interpr et this result as reji l/abnormal. [facility] HospitalAmcdzhzLQGHFADLN6948-55-94 21:58:00 Test Item Value Reference Range Interpretation Comments Alk Phos (test code = Alk Phos) 110 39-136 N [facility] HospitalDlpecsgOVQJAEWBN1983-27-33 21:58:00 Test Item Value Reference Range Interpretation Comments Bili Direct (test code 0.1 See_Comment N [Aut omated message] The = Bili Direct) system which generated this result tra nsmitted reference range : <=0.3. The reference r leo was not used to int erpret this result as reji l/abnormal. [facility] HospitalCqoipquLOFUPEUTO7494-28-97 21:58:00 Test Item Value Reference Range Interpretation Comments Bili Total (test code = Bili Total) 0.9 0.2-1.3 N [facility] HospitalAdiayxzPRWPOZZOK9147-66-62 21:58:00 Test Item Value Reference Range Interpretation Comments Albumin Lvl (test code = Albumin Lvl) 4.4 3.5-5.0 N [facility] HospitalQerwxozIPRRXCNHK3571-45-99 21:58:00 Test Item Value Reference Range Interpretation Comments Total Protein (test code = Total 8.8 6.4-8.4 H Protein) [facility] HospitalLfdelxdKMVLEAIFC1752-05-48 21:58:00 Test Item Value Reference Range Interpretation Comments Bili Indirect (test 0.8 See_Comment N [Automa rohit message] The code = Bili Indirect) system which generated this result tra nsmitted reference range : <=1.0. The reference r leo was not used to int erpret this result as normal/abnormal . [facility] HospitalUyspgupOBBJFBXLW6692-44-55 21:58:00 Test Item Value Reference Range Interpretation Comments AST (test code = AST) 36 See_Comment N [Auto mated message] The system which ge nerated this result transmit rohit reference range : <=37. The reference range was not used to interpr et this result as reji l/abnormal. [facility] HospitalAfkcgqdRHZKKXMWG4392-29-68 21:58:00 Test Item Value Reference Range Interpretation Comments Globulin (test code = Globulin) 4.4 2.0-4.0 H [facility] HospitalDhabudcPZSPNFUBY9667-64-35 21:58:00 Test Item Value Reference Range Interpretation Comments A/G Ratio (test code = A/G Ratio) 1.0 0.7-1.6 N [facility] ArlingtonTsuembfJNANYGRPTL6115-78-65 21:58:00 Test Item Value Reference Range Interpretation Comments UA Bacteria (test code Occasional /HPF N = UA Bacteria) (08/19/2011 15:58:00) [facility] AzleRjvptzlCSVBBTMDUE2819-39-00 21:58:00 Test Item Value Reference Range Interpretation Comments UA RBC (test 3-5 /HPF See_Comment A [Automated mes pastor] code = UA RBC) *ABN*(08/19/2011 The syste m which 15:58:00) generated this result transmitted ref erence range: <=2. The reference range was not used to int erpret this result as normal/abnormal . [facility] AzleAlvkizjRDGXHCEPIW7444-02-37 21:58:00 Test Item Value Reference Range Interpretation Comments UA WBC (test code = 3 See_Comment [Automa rohit message] The UA WBC) system which ge nerated this result transmit rohit reference range : <=5. The reference range was not used to interpr et this result as reji l/abnormal. [facility] HospitalYbqzlhbIJJFCZFFUV5452-47-37 21:58:00 Test Item Value Reference Range Interpretation Comments UA Mucus (test code = Few /LPF (08/19/2011 N UA Mucus) 15:58:00) [facility] AzleJaapijvAJSTAQQRNW8466-25-13 21:58:00 Test Item Value Reference Range Interpretation Comments UA Amorph Destiny (test Occasional /HPF A code = UA Amorph *ABN*(08/19/2011 Destiny) 15:58:00) [facility] AzleBxaafvzDDTNCPVRVL0754-75-05 21:58:00 Test Item Value Reference Range Interpretation Comments UA Urobilinogen (test code = UA 0.2 0.1-1.0 N Urobilinogen) [facility] HospitalVjbanlmVUGIZZRIYI4209-65-52 21:58:00 Test Item Value Reference Range Interpretation Comments UA Sq Epi (test code = Rare /LPF (08/19/2011 N UA Sq Epi) 15:58:00) [facility] AzleBgujtttEWTLJNOUMO7508-57-81 21:58:00 Test Item Value Reference Range Interpretation Comments Micro? (test code = Performed (08/19/2011 N Micro?) 15:58:00) [facility] HospitalTinryyxFURVZOJBOW8259-09-41 21:58:00 Test Item Value Reference Range Interpretation Comments UA Leuk Est (test Negative (08/19/2011 N code = UA Leuk Est) 15:58:00) [facility] HospitalKnloeseGIURYBSLNF2110-34-93 21:58:00 Test Item Value Reference Range Interpretation Comments UA Nitrite (test code Negative (08/19/2011 N = UA Nitrite) 15:58:00) [facility] AzleSfmynnmNDTGDOFVUQ8327-61-89 21:58:00 Test Item Value Reference Range Interpretation Comments UA pH (test code = UA pH) 5.5 1 5.0-8.0 N [facility] AzleWpmkvcmQMIRAXWDJJ8076-75-08 21:58:00 Test Item Value Reference Range Interpretation Comments UA Blood (test code = Trace *ABN*(08/19/2011 A UA Blood) 15:58:00) [facility] ArlingtonTaungsjDUAFVEJCTY1798-05-28 21:58:00 Test Item Value Reference Range Interpretation Comments UA Bili (test code = Negative (08/19/2011 N UA Bili) 15:58:00) [facility] ArlingtonZylmvzzBXDCIMMOEF0807-01-32 21:58:00 Test Item Value Reference Range Interpretation Comments UA Ketones (test code = 80 mg/dL A UA Ketones) *ABN*(08/19/2011 15:58:00) [facility] ArlingtonTkyevkbKMKEYSEXGQ5671-12-21 21:58:00 Test Item Value Reference Range Interpretation Comments UA Glucose (test code = >=1000 mg/dL A UA Glucose) *ABN*(08/19/2011 15:58:00) [facility] ArlingtonZlztaxtTIUQHEKUXH4416-14-96 21:58:00 Test Item Value Reference Range Interpretation Comments UA Protein (test code Negative (08/19/2011 N = UA Protein) 15:58:00) [facility] ArlingtonIvvawnoGRCIVNESLL9062-63-30 21:58:00 Test Item Value Reference Range Interpretation Comments UA Turbidity (test code Slight Cloudy N = UA Turbidity) (08/19/2011 15:58:00) [facility] ArlingtonXldadlpQBWDKTISFE3943-54-32 21:58:00 Test Item Value Reference Range Interpretation Comments UA Spec Grav (test code = UA Spec 1.025 1 Grav) [facility] ArlingtonDehxkfaGFIZOQDNTX4954-71-64 21:58:00 Test Item Value Reference Range Interpretation Comments UA Color (test code = Yellow (08/19/2011 N UA Color) 15:58:00) [facility] HospitalEgdizghUDZPTTGEQ0075-50-24 21:13:00 Test Item Value Reference Range Interpretation Comments AST (test code = AST) 23 See_Comment N [Auto mated message] The system which ge nerated this result transmit rohit reference range : <=37. The reference range was not used to interpr et this result as reji l/abnormal. [facility] HospitalRcemtrfNHKBFNYHS1232-32-58 21:13:00 Test Item Value Reference Range Interpretation Comments Bili Total (test code = Bili Total) 1.0 0.2-1.3 N [facility] HospitalYfahcnrCQKSPNCPV5133-21-59 21:13:00 Test Item Value Reference Range Interpretation Comments Alk Phos (test code = Alk Phos) 115 39-136 N [facility] HospitalFgiuwplTPCYQXTIC9329-69-76 21:13:00 Test Item Value Reference Range Interpretation Comments ALT (test code = ALT) 56 See_Comment N [Auto mated message] The system which ge nerated this result transmit rohit reference range : <=65. The reference range was not used to interpr et this result as reji l/abnormal. [facility] HospitalHywmuffCRMVJADOL4655-95-61 21:13:00 Test Item Value Reference Range Interpretation Comments Total Protein (test code = Total 9.0 6.4-8.4 H Protein) [facility] HospitalJwpnvguEVRIYQCRP0978-47-41 21:13:00 Test Item Value Reference Range Interpretation Comments Albumin Lvl (test code = Albumin Lvl) 4.8 3.5-5.0 N [facility] HospitalTytemxeODAWXEUBJ3254-04-07 21:13:00 Test Item Value Reference Range Interpretation Comments Globulin (test code = Globulin) 4.2 2.0-4.0 H [facility] HospitalOkathoaCZIEGYDDJ0633-28-50 21:13:00 Test Item Value Reference Range Interpretation Comments A/G Ratio (test code = A/G Ratio) 1.1 0.7-1.6 N [facility] HospitalLnzftchEVLKFVNDK9178-17-51 21:13:00 Test Item Value Reference Range Interpretation Comments B/C Ratio (test code = B/C Ratio) 30 6-25 H [facility] HospitalLxxxiihILYTOCKTFC9150-84-87 21:13:00 Test Item Value Reference Range Interpretation Comments RBC Morph (test code = Normal (08/19/2011 N RBC Morph) 15:13:00) [facility] HospitalMskboheREQGPNEXVQ1970-22-83 21:13:00 Test Item Value Reference Range Interpretation Comments Large Plt (test code = Slight *ABN*(08/19/2011 A Large Plt) 15:13:00) [facility] HospitalLfzxkjoNPVDOWUOCB4585-14-34 21:13:00 Test Item Value Reference Range Interpretation Comments Atypical Lymphs (test code = Atypical 0.0 N Lymphs) [facility] HospitalStbutidUMWPEKCNLN6903-11-10 21:13:00 Test Item Value Reference Range Interpretation Comments Bands (test code = 0.0 See_Comment N [Automat ed message] The Bands) system which ge nerated this result transmit rohit reference range : <=11.0. The reference r leo was not used to interpr et this result as reji l/abnormal. [facility] HospitalElpxryxFVOBZSWOQ6946-24-05 21:13:00 Test Item Value Reference Range Interpretation Comments AST (test code = AST) 23 See_Comment N [Auto mated message] The system which ge nerated this result transmit rohit reference range : <=37. The reference range was not used to interpr et this result as reji l/abnormal. [facility] HospitalBambrgaSCQCNCMIP9414-53-02 21:13:00 Test Item Value Reference Range Interpretation Comments Bili Total (test code = Bili Total) 1.0 0.2-1.3 N [facility] HospitalTodeuyjMZXIMYNXW7837-20-53 21:13:00 Test Item Value Reference Range Interpretation Comments Alk Phos (test code = Alk Phos) 115 39-136 N [facility] HospitalIxpqbqaOUQCWRLCT9780-95-13 21:13:00 Test Item Value Reference Range Interpretation Comments ALT (test code = ALT) 56 See_Comment N [Auto mated message] The system which ge nerated this result transmit rohit reference range : <=65. The reference range was not used to interpr et this result as reji l/abnormal. [facility] HospitalIapdgmdADNFSQYBG3960-75-16 21:13:00 Test Item Value Reference Range Interpretation Comments Total Protein (test code = Total 9.0 6.4-8.4 H Protein) [facility] HospitalIvewwckOFKOLUACD5760-54-49 21:13:00 Test Item Value Reference Range Interpretation Comments Albumin Lvl (test code = Albumin Lvl) 4.8 3.5-5.0 N [facility] HospitalWbemnzgOETBNPXKU4745-19-59 21:13:00 Test Item Value Reference Range Interpretation Comments Globulin (test code = Globulin) 4.2 2.0-4.0 H [facility] HospitalVzhaqhnFNAMTTQWB3082-71-35 21:13:00 Test Item Value Reference Range Interpretation Comments A/G Ratio (test code = A/G Ratio) 1.1 0.7-1.6 N [facility] HospitalDctghebBEHARNWFU2338-95-67 21:13:00 Test Item Value Reference Range Interpretation Comments B/C Ratio (test code = B/C Ratio) 30 6-25 H [facility] HospitalSumikkfCOQTOQXRER0128-30-52 21:13:00 Test Item Value Reference Range Interpretation Comments RBC Morph (test code = Normal (08/19/2011 N RBC Morph) 15:13:00) [facility] HospitalRpjggopFIIVNICMIE9133-74-18 21:13:00 Test Item Value Reference Range Interpretation Comments Large Plt (test code = Slight *ABN*(08/19/2011 A Large Plt) 15:13:00) [facility] HospitalKbcbfjgVHVEXLGHXS6335-36-45 21:13:00 Test Item Value Reference Range Interpretation Comments Atypical Lymphs (test code = Atypical 0.0 N Lymphs) [facility] HospitalIhcmvhbRJQULELMHV4736-62-86 21:13:00 Test Item Value Reference Range Interpretation Comments Bands (test code = 0.0 See_Comment N [Automat ed message] The Bands) system which ge nerated this result transmit rohit reference range : <=11.0. The reference r leo was not used to interpr et this result as reji l/abnormal. [facility] HospitalGkxmysmNHGYGNMAW1863-14-92 21:10:00 Test Item Value Reference Range Interpretation Comments O2 Sat Roberth (test code = O2 Sat Roberth) 74.0 40.0-70.0 H [facility] HospitalGdawkskPGYMANSQJ4931-42-22 21:10:00 Test Item Value Reference Range Interpretation Comments Temp Roberth (test code = Temp Roberth) 37.0 [facility] HospitalImgmxrhHYSFQRTLS3999-82-57 21:10:00 Test Item Value Reference Range Interpretation Comments pO2 Roberth (test code = pO2 Roberth) 42 20-49 N [facility] HospitalSovnstsUTSNCAMIT9744-68-27 21:10:00 Test Item Value Reference Range Interpretation Comments HCO3 Roberth (test code = HCO3 Roberth) 17.3 22.0-26.0 L [facility] HospitalFoevrjcXCOJZOJGJ3551-24-67 21:10:00 Test Item Value Reference Range Interpretation Comments pH Roberth (test code = pH Roberth) 7.34 7.28-7.42 N [facility] HospitalChzzzasUOELVJTPG7692-54-99 21:10:00 Test Item Value Reference Range Interpretation Comments pCO2 Roberth (test code = pCO2 Roberth) 32 38-52 L [facility] HospitalKmddfgjTHQMMMYXL7862-90-83 21:10:00 Test Item Value Reference Range Interpretation Comments BE Roberth (test code = -7 See_Comment L [Automa rohit message] The BE Roberth) system which ge nerated this result transmit rohit reference range : <=2. The reference range was not used to interpr et this result as reji l/abnormal. [facility] HospitalWstohmsFOFUMUSVB1572-89-36 21:10:00 Test Item Value Reference Range Interpretation Comments O2 Sat Roberth (test code = O2 Sat Roberth) 74.0 40.0-70.0 H [facility] HospitalFdcchjlFOZDVWVEH9607-45-28 21:10:00 Test Item Value Reference Range Interpretation Comments Temp Roberth (test code = Temp Roberth) 37.0 [facility] HospitalMuxabipDPPXIKVRA2882-75-92 21:10:00 Test Item Value Reference Range Interpretation Comments pO2 Roberth (test code = pO2 Roberth) 42 20-49 N [facility] HospitalQhlbxthTQNRUPXVF1108-65-28 21:10:00 Test Item Value Reference Range Interpretation Comments HCO3 Roberth (test code = HCO3 Roberth) 17.3 22.0-26.0 L [facility] HospitalMgqontnXIEWUQEYK4014-66-60 21:10:00 Test Item Value Reference Range Interpretation Comments pH Roberth (test code = pH Roberth) 7.34 7.28-7.42 N [facility] HospitalUjuwgzqJSJPWWRBP2706-81-73 21:10:00 Test Item Value Reference Range Interpretation Comments pCO2 Roberth (test code = pCO2 Roberth) 32 38-52 L [facility] HospitalCqlsnvzYWMATZNZV3329-66-54 21:10:00 Test Item Value Reference Range Interpretation Comments BE Roberth (test code = -7 See_Comment L [Automa rohit message] The BE Roberth) system which ge nerated this result transmit rohit reference range : <=2. The reference range was not used to interpr et this result as reji l/abnormal. [facility] [id number] 20:34:00 Test Item Value Reference Range Interpretation Comments CDC-HIV 1/2 Ab (test Negative *NA*(08/19/2011 code = CDC-HIV 1/2 14:34:00) Ab) [id number] 20:34:00 Test Item Value Reference Range Interpretation Comments CDC-HIV 1/2 Ab (test Negative *NA*(08/19/2011 code = CDC-HIV 1/2 14:34:00) Ab) [facility]
[2022-08-26] MEDS ORDERED: METOCLOPRAMIDE 10 MG/2mL INJ ONE (22:29)
[2022-08-26] MEDS ORDERED: LORazepam 2 MG/ML VIAL ONE (22:34)
[2022-08-26 22:44] LABS: Absolute Lymphocytes (CBC) 1.3 K/uL (0.7-4.9); Hematocrit 28.4 % (36.0-45.0); Lymphocytes % 28.4 % (15.3-44.8); MCV 87.6 fL (80-100); MPV 9.9 fL (7.6-11.3); RBC Red Blood Cell Count 3.25 M/uL (3.86-4.86)
[2022-08-26 23:08] LABS: Albumin 3.5 g/dL (3.4-5.0); Bilirubin Total 0.5 mg/dL (0.2-1.0); Potassium 3.8 mmol/L (3.5-5.1); Protein, Total 6.7 g/dL (6.4-8.2)
[2022-08-26] MEDS ORDERED: cloNIDine HCL 0.1 MG TAB ONE (23:24)
[2022-08-27 01:02] VITALS: BP 158/77; O2SAT 98
--- NOTE | 2022-09-11 15:19 | ER ---
Nurse's Notes [facility] Name: Cathi Zaldivar Age: 41 yrs Sex: Female : 1980 Arrival Date: 08/26/2022 Time: 20:30 Bed 9 Private MD: Diagnosis: Nausea;Gastroparesis;Hypertensive heart and chronic kidney disease with heart failure and with stage 5 chronic kidney disease, or end stage renal disease Presentation: 08/26 20:33 Chief complaint: Patient states: her "gastroparesis" is acting up she is having bb abdominal pain and vomiting x 2 days. Coronavirus screen: At this time, the client does not indicate any symptoms associated with coronavirus-19. Ebola Screen: No symptoms or risks identified at this time. Initial Sepsis Screen: Does the patient meet any 2 criteria? No. Patient's initial sepsis screen is negative. Does the patient have a suspected source of infection? No. Patient's initial sepsis screen is negative. Risk Assessment: Do you want to hurt yourself or someone else? Patient reports no desire to harm self or others. Onset of symptoms was August 24, 2022. 20:33 Method Of Arrival: Wheelchair bb 20:33 Acuity: JESSICA 2 bb Triage Assessment: 20:35 General: Appears uncomfortable, ill, Behavior is cooperative, anxious. Pain: Complains bb of pain in abdomen Pain currently is 8 out of 10 on a pain scale. Neuro: Level of Consciousness is awake, alert, obeys commands, Oriented to person, place, time, situation. Cardiovascular: Capillary refill < 3 seconds Patient's skin is warm and dry. Respiratory: Respiratory effort is even, unlabored, Respiratory pattern is regular. GI: Reports lower abdominal pain, upper abdominal pain, vomiting. Derm: Skin is pink, warm \\T\\ dry. Musculoskeletal: Circulation, motion, and sensation intact. 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 bb Historical: - Allergies: 20:35 ambien; bb 20:35 Codeine; bb 20:35 GUAIFENESIN; bb 20:35 Lisinopril; bb 20:35 Morphine; bb 20:35 Nitrofurantoin Macrocrystal; bb 20:35 PENICILLINS; bb 20:35 Prolixin; bb 20:35 zolpidem tartrate; bb - PMHx: 20:35 "mental problems"; cardiac arrest; CHF; chronic kidney disease; cyclic vomiting bb syndrome; Diabetes - NIDDM; Dialysis; m-w-f; ENCEPHALOPATHY; Gastroparesis; Hypertension; ibs; liver failure; PERIPHERAL NEUROPATHY; pseudo aneurysm R groin; Seizures; - PSHx: 20:35 section; dialysis catheter R chest wall; eye removed; bb - Immunization history:: Client reports having NOT received the Covid vaccine. - Social history:: Smoking status: Patient reports the use of cigarette tobacco products. Screenin:00 [facility] ED Fall Risk Assessment (Adult) Score/Fall Risk Level 0 - 2 = Low Risk. Abuse eh3 screen: Denies threats or abuse. Denies injuries from another. Nutritional screening: No deficits noted. Tuberculosis screening: No symptoms or risk factors identified. Assessment: 22:00 General: Appears distressed, uncomfortable, Behavior is cooperative, anxious, crying. eh3 Pain: Complains of pain in abdomen. Neuro: Level of Consciousness is awake, alert, obeys commands, Oriented to person, place, time, situation. Cardiovascular: Capillary refill < 3 seconds Patient's skin is warm and dry. Respiratory: Airway is patent Respiratory effort is even, unlabored, Respiratory pattern is regular, symmetrical. GI: Abdomen is round non-distended, Bowel sounds present X 4 quads. : No signs and/or symptoms were reported regarding the genitourinary system. EENT: No signs and/or symptoms were reported regarding the EENT system. Derm: Skin is pink, warm \\T\\ dry. Musculoskeletal: Circulation, motion, and sensation intact. 23:00 Reassessment: Patient appears in no apparent distress at this time. Patient and/or eh3 family updated on plan of care and expected duration. Pain level reassessed. Patient is alert, oriented x 3, equal unlabored respirations, skin warm/dry/pink. 08/27 00:00 Reassessment: Patient appears in no apparent distress at this time. Patient and/or eh3 family updated on plan of care and expected duration. Pain level reassessed. Patient is alert, oriented x 3, equal unlabored respirations, skin warm/dry/pink. Vital Signs: 08/26 20:33 BP 221 / 94; Pulse 82; Resp 16 S; Pulse Ox 100% on R/A; Weight 79.2 kg (R); Height 5 bb ft. 1 in. (R); Pain 8/10; 22:00 BP 211 / 91; Pulse 84; Resp 18; Pulse Ox 96% on R/A; eh3 22:15 BP 214 / 91; Pulse 83; Resp 18; Pulse Ox 100% on R/A; eh3 23:00 BP 198 / 90; Pulse 85; Resp 18; Pulse Ox 98% on R/A; eh3 23:52 BP 164 / 78; Pulse 82; Resp 18; Pulse Ox 97% ; vc1 08/27 00:00 BP 158 / 77; Pulse 82; Resp 18; Pulse Ox 98% on R/A; eh3 08/26 20:33 Body Mass Index 32.99 (79.20 kg, 154.94 cm) bb 08/26 20:33 Pain Scale: Adult bb ED Course: 08/26 20:30 Patient arrived in ED. [id number] 20:35 Triage completed. bb 20:35 Arm band placed on Patient placed in waiting room, Patient notified of wait time. bb 20:47 Luis Ruvalcaba PA is PHCP. cp 20:47 Andres Luo MD is Attending Physician. cp 22:00 Patient has correct armband on for positive identification. Bed in low position. Call eh3 light in reach. Side rails up X2. Pulse ox on. NIBP on. Door closed. Noise minimized. Lights dimmed. Warm blanket given. 22:22 Nora Tucker, TABATHA is Primary Nurse. eh3 22:30 Inserted saline lock: 22 gauge in right ,using aseptic technique. breast Blood vc1 collected. 23:53 No provider procedures requiring assistance completed. vc1 08/27 00:03 IV discontinued, intact, bleeding controlled, No redness/swelling at site. Pressure eh3 dressing applied. Administered Medications: 08/26 22:47 Drug: LORazepam IM 1 mg Route: IM; Site: left deltoid; eh3 23:24 Follow up: Response: Anxiety decreased eh3 22:48 Drug: metoCLOPramide IM 10 mg Route: IM; Site: left deltoid; eh3 23:24 Follow up: Response: Nausea is decreased eh3 23:24 Drug: cloNIDine PO 0.2 mg Route: PO; eh3 23:53 Follow up: Response: No adverse reaction; Blood pressure is lowered vc1 Medication: 23:53 VIS not applicable for this client. vc1 Outcome: 23:59 Discharge ordered by MD. godwin 08/27 00:11 Discharged to home ambulatory, with family. eh3 Condition: stable Discharge instructions given to patient, Instructed on discharge instructions, follow up and referral plans. medication usage, Demonstrated understanding of instructions, follow-up care, medications, Prescriptions given X 1. 00:12 Patient left the ED. eh3 Signatures: Hawa Bustillos, RN RN bb Luis Ruvalcaba PA PA cp Jeffries, Jennifer [id number] Maria M Gonzalez RN RN vc1 Nora Tucker RN RN eh3
--- NOTE | 2022-09-11 15:19 | EDPHYS ---
Physician Documentation [facility] Name: Cathi Zaldivar Age: 41 yrs Sex: Female : 1980 Arrival Date: 08/26/2022 Time: 20:30 Bed 9 Private MD: ED Physician Andres Luo HPI: 08/26 22:15 This 41 yrs old Female presents to ER via Wheelchair with complaints of cp Nausea/Vomiting, Abdominal Cramping. 22:15 The patient presents to the emergency department with nausea, that is moderate, cp vomiting, that is intermittent, abdominal pain, of the abdomen diffusely. Onset: The symptoms/episode began/occurred 2 day(s) ago. Possible causes: flare up of bowel problem, gastroparesis. Associated signs and symptoms: Pertinent negatives: constipation, diarrhea, fever, GI bleeding. Severity of symptoms: in the emergency department the symptoms are unchanged despite home interventions. Patient reports completing dialysis today as scheduled. 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 bb Historical: - Allergies: 20:35 ambien; bb 20:35 Codeine; bb 20:35 GUAIFENESIN; bb 20:35 Lisinopril; bb 20:35 Morphine; bb 20:35 Nitrofurantoin Macrocrystal; bb 20:35 PENICILLINS; bb 20:35 Prolixin; bb 20:35 zolpidem tartrate; bb - PMHx: 20:35 "mental problems"; cardiac arrest; CHF; chronic kidney disease; cyclic vomiting bb syndrome; Diabetes - NIDDM; Dialysis; m-w-f; ENCEPHALOPATHY; Gastroparesis; Hypertension; ibs; liver failure; PERIPHERAL NEUROPATHY; pseudo aneurysm R groin; Seizures; - PSHx: 20:35 section; dialysis catheter R chest wall; eye removed; bb - Immunization history:: Client reports having NOT received the Covid vaccine. - Social history:: Smoking status: Patient reports the use of cigarette tobacco products. ROS: 22:20 Constitutional: Negative for body aches, chills, fever. cp 22:20 Eyes: Negative for injury, pain, redness, and discharge. cp 22:20 ENT: Negative for drainage from ear(s), ear pain, sore throat, difficulty swallowing, difficulty handling secretions. 22:20 Cardiovascular: Negative for chest pain, palpitations. 22:20 Respiratory: Negative for cough, shortness of breath, wheezing. 22:20 Abdomen/GI: Positive for abdominal pain, nausea and vomiting, Negative for diarrhea, constipation, hematemesis. 22:20 Back: Negative for pain at rest, pain with movement. 22:20 Neuro: Negative for altered mental status, headache, weakness. 22:20 All other systems are negative. Exam: 22:25 Constitutional: The patient appears in no acute distress, alert, awake, cp non-diaphoretic, non-toxic, well developed, well nourished. 22:25 Head/Face: Normocephalic, atraumatic. cp 22:25 Eyes: Periorbital structures: appear normal, Conjunctiva: normal, no exudate, no injection, Sclera: no appreciated abnormality, Lids and lashes: appear normal, bilaterally. 22:25 ENT: External ear(s): are unremarkable, Nose: is normal, Mouth: Lips: moist, Oral mucosa: pink and intact, moist, Posterior pharynx: is normal, airway is patent, no erythema, no exudate. 22:25 Chest/axilla: Inspection: normal. 22:25 Cardiovascular: Rate: normal, Rhythm: regular, Edema: is not appreciated, JVD: is not appreciated. 22:25 Respiratory: the patient does not display signs of respiratory distress, Respirations: normal, no use of accessory muscles, no retractions, labored breathing, is not present, Breath sounds: are clear throughout, no decreased breath sounds, no stridor, no wheezing. 22:25 Abdomen/GI: Inspection: abdomen appears normal, Bowel sounds: active, all quadrants, Palpation: soft, in all quadrants, moderate abdominal tenderness, in all quadrants, rebound tenderness, is not appreciated, involuntary guarding, is not appreciated. 22:25 Back: pain, is absent, ROM is normal. Vital Signs: 20:33 BP 221 / 94; Pulse 82; Resp 16 S; Pulse Ox 100% on R/A; Weight 79.2 kg (R); Height 5 bb ft. 1 in. (R); Pain 8/10; 22:00 BP 211 / 91; Pulse 84; Resp 18; Pulse Ox 96% on R/A; eh3 22:15 BP 214 / 91; Pulse 83; Resp 18; Pulse Ox 100% on R/A; eh3 23:00 BP 198 / 90; Pulse 85; Resp 18; Pulse Ox 98% on R/A; eh3 23:52 BP 164 / 78; Pulse 82; Resp 18; Pulse Ox 97% ; vc1 08/27 00:00 BP 158 / 77; Pulse 82; Resp 18; Pulse Ox 98% on R/A; eh3 08/26 20:33 Body Mass Index 32.99 (79.20 kg, 154.94 cm) bb 08/26 20:33 Pain Scale: Adult bb MDM: 08/26 20:49 Patient medically screened. cp 23:58 Data reviewed: vital signs, nurses notes, lab test result(s). cp 23:58 Consideration of Admission/Observation Escalation of care including cp admission/observation considered. I considered the following discharge prescriptions or medication management in the emergency department Medications were administered in the Emergency Department. See MAR. Test considered but Not performed: CT: abdomen/pelvis. Care significantly affected by the following chronic conditions: Congestive Heart Failure, Chronic Kidney Disease. Counseling: I had a detailed discussion with the patient and/or guardian regarding: the historical points, exam findings, and any diagnostic results supporting the discharge/admit diagnosis, lab results, radiology results, to return to the emergency department if symptoms worsen or persist or if there are any questions or concerns that arise at home. Response to treatment: the patient's symptoms have markedly improved after treatment. ED course: VSS. No vomiting observed while monitoring patient in ED. Patient seen in this ED on multiple occasions with similar complaints. Will discharge to home for continued monitoring. 08/26 21:57 Order name: CBC with Diff; Complete Time: 23:12 cp 08/26 23:31 Interpretation: HGB 9.5; HCT 28.4; PLT 125; RDW 19.8; RBC 3.25. cp 08/26 21:57 Order name: CMP; Complete Time: 23:12 cp 08/26 21:57 Order name: Lipase; Complete Time: 23:12 cp 08/26 21:57 Order name: IV Saline Lock; Complete Time: 22:35 cp 08/26 21:57 Order name: Labs collected and sent; Complete Time: 22:35 cp 08/26 23:31 Order name: PO challenge; Complete Time: 23:53 cp Administered Medications: 22:47 Drug: LORazepam IM 1 mg Route: IM; Site: left deltoid; eh3 23:24 Follow up: Response: Anxiety decreased eh3 22:48 Drug: metoCLOPramide IM 10 mg Route: IM; Site: left deltoid; 3 23:24 Follow up: Response: Nausea is decreased 3 23:24 Drug: cloNIDine PO 0.2 mg Route: PO; 3 23:53 Follow up: Response: No adverse reaction; Blood pressure is lowered vc1 Disposition Summary: 08/26/22 23:59 Discharge Ordered Location: Home cp Problem: chronic cp Symptoms: have improved cp Condition: Stable cp Diagnosis - Nausea cp - Gastroparesis cp - Hypertensive heart and chronic kidney disease with heart failure and with stage 5 cp chronic kidney disease, or end stage renal disease Followup: cp - With: Private Physician - When: 1 - 2 days - Reason: Recheck today's complaints Discharge Instructions: - Discharge Summary Sheet cp - Nausea, Adult cp - Gastroparesis cp Forms: - Medication Reconciliation Form cp - Thank You Letter cp - Antibiotic Education cp - Prescription Opioid Use cp Prescriptions: - Reglan 10 mg Oral Tablet - take 1 tablet by ORAL route every 6 hours take 30 minutes before meals and at cp bedtime; 20 tablet; Refills: 0, Product Selection Permitted Signatures: Dispatcher [employer] Hawa Macias RN RN bb Luis Ruvalcaba PA PA cp Nora Tucker RN RN eh3 Maria M Gonzalez RN vc1 Corrections: (The following items were deleted from the chart) 23:31 23:12 HGB 9.5; HCT 28.4; PLT 125; RDW 19.8. cp cp
== END 2022-08-27 00:12 | disposition home or self-care (01) ==
LOC: ER 20:10
DX: K31.84 Gastroparesis (principal); E11.22 Type 2 diabetes mellitus with diabetic chronic kidney disease; I13.2 Hypertensive heart and chronic kidney disease with heart failure and with stage 5 chronic kidney disease, or end stage renal disease; N18.5 Chronic kidney disease, stage 5; I50.9 Heart failure, unspecified; Z99.2 Dependence on renal dialysis; Z72.0 Tobacco use
CPT/HCPCS: 85025; 36415; 83690; 80053; 96372; 99284; J2765

== ENCOUNTER 2022-10-26 14:26 | Emergency (ER) | payer MEDICARE, OTHER ==
--- OUTSIDE RECORDS SUMMARY | 2022-10-26 15:38 | XMS REPORT | Continuity of Care Document ---
:1980 Author Organization [facility] t Address [address] [place] [address] [address] [place] [address] Care Team Providers Name Role Phone Jose Miguel Morin DO Primary Care Physician Sanya Attending Clinician Unavailable Nereida_Yared Attending Clinician Unavailable Peg Attending Clinician Unavailable RAJ WEST Attending Clinician Unavailable Jose Miguel Morin DO Attending Clinician Rosy BURNS, Brooke Ricci Attending Clinician [phone] Seth HOGUEC, Bessie Parks Attending Clinician [phone] AnthonyChapin guamana Attending Clinician Unavailable Melany Gilbert Attending Clinician Pat BURNS, Sivan Brand Attending Clinician Isra BURNS, Rachel Lew Attending Clinician [phone] Robe BURNS, Holden Elmore Attending Clinician Magaly BURNS, Shanda Higuera Attending Clinician Endy BURNS, Aurelio Attending Clinician Alesia Dodd Attending Clinician Joe BURNS, Mando Raphael Attending Clinician [phone] Jose Carlos BURNS, Veto Vincent Attending Clinician Kenyatta BURNS, Juwan Attending Clinician Doc BURNS, Sofi Juárez Attending Clinician [phone] Robert MAYS, Gayle Attending Clinician Unavailable Frankie Chowdhury MD Attending Clinician Chandler Silverman Attending Clinician MD [...] MAYS, Elodia Attending Clinician Unavailable Doctor Unassigned, [place] Attending Clinician Unavailable MONA BHAT Attending Clinician Unavailable Jose MAYS, Missy Attending Clinician Unavailable Jimena Easton DO Attending Clinician Arun BURNS, Eze Vail Attending Clinician Obed Gray MD Attending Clinician Monisha Bajwa Attending Clinician MONISHA BAJWA Attending Clinician Unavailable Alexandr Diane MD Attending Clinician OZ KIMBLE.HJose F Attending Clinician Unavailable Hui Wright Attending Clinician HUI WRIGHT Attending Clinician Unavailable JOSE LUIS GONZALEZ Attending Clinician Unavailable Lamin BURNS, Oz K.H. Attending Clinician Jose Luis Gonzalez MD Attending Clinician Earl Sanchez DO Attending Clinician DEJA SANDOVAL Attending Clinician Unavailable Black BLANCHARD, Deja Magallon Attending Clinician [phone] Pc, Adc Echo Room 1 - Attending [...] Clinician Unavailable Adán Horn MD Attending Clinician Outpt-Josy, Ccl Attending Clinician Unavailable Gary Manrique MD Attending Clinician Brandon Holt MD Attending Clinician LY DORADO Attending Clinician Unavailable MOISE BHAKTA Attending Clinician Unavailable Luna Jamison Attending Clinician Joe Juárez Attending Clinician Atul Valdez Attending Clinician Daquan_giovanna Admitting Clinician Unavailable Nodal_J Admitting Clinician Unavailable Deshazo_T Admitting Clinician Unavailable RACHEL BRASHER Admitting Clinician Unavailable MD RACHEL BRASHER Admitting Clinician Unavailable Adams_R Admitting Clinician Unavailable TOM BARBER Admitting Clinician Unavailable MD JUWAN YOU Admitting Clinician Unavailable Arun Espitia MD, Victor J Admitting Clinician [phone] Hui Wright Admitting Clinician HUI WRIGHT Admitting Clinician Unavailable Rei Waldron Admitting Clinician Unavailable MOISE BHAKTA Admitting Clinician Unavailable Danae Cha Admitting Clinician Joe Juárez Admitting Clinician Payers Payer Name Policy Type Policy Number Effective Date Expiration Date S karla MEDICARE PART A AND [id number] 2014 2021 B 00:00:00 00:00:[id number] 2020 00:00:00 MEDICARE PART A \\T\\ [id number] 2014 B 00:00:00 MEDICAID OF [place] [id number] 2020 00:00:[id number] 2021 (MEDICARE 00:00:00 REPLACEMENT HMO) MEDICARE A B [id number] 2014 00:00:00 [place]ICA[place] [id number] 2016 00:00:00 Problems Condition Condition Condition Status [...] ESISI/IBS- 01-03 21:41:00 l /ANEMIA D/ANEMIA 00:00: [place] Active 01/03/2021 [facility] NEW NEW Diagnosis Active 2020-12-24 Mem oria PATIENT GI PATIENT GI 10-14 10:39:00 l CONSULT CONSULT 00:00: Vin REFRACTORY REFRACTORY 00 GASTRO GASTRO Active 10/14/2020 [facility] Malfunctio Malfunctio Disease Active Overview : Univers n of n of 6-03 Formattin ity of arterioven arterioven 00:00: g of this [place] ous ous 00 note Medical dialysis dialysis might be Bran ch fistula, fistula, different initial initial from the encounter encounter original. Added automatic ally from request for surgery [id number] Candidiasi Candidiasi Disease Active U nivers s of vulva s of vulva 2-18 it y of and vagina [place] Screening Screening Disease Active Uni vers for breast for breast 2-18 it y of cancer cancer 00:00: [place] 00 Medical Branch NEW NEW Diagnosis Active 2018-07-26 Mem oria EVALUATION EVALUATION - 09:39:00 l Active 00:00: Vin 07/12/2018 [facility] Pyogenic Pyogenic Disease Active 2017-06 Overview: Un lori granuloma granuloma 0-17 Formattin i ty of of of 00:00: g of this [place] conjunctiv conjunctiv 00 note Me dical a, right a, right might be Bran ch different from the original. Added automatic ally from request for surgery [id number] Right eye Right eye Disease Active Overview: Univers affected affected 9-04 Formattin ity of by by 00:00: g of this [place] proliferat proliferat 00 note Me dical montse montse might be Branch diabetic diabetic different retinopath retinopath from the y with y with original. traction traction Added retinal retinal automatic detachment detachment ally from not not request involving involving for macula, macula, surgery associated associated [id number] with type with type 1 diabetes 1 [...] Added automatic ally from request for surgery [id number] ESRD (end ESRD (end Disease Active Overview: Univers stage stage -12 Formattin ity of renal renal 00:00: g of this [place] disease) disease) 00 note Medica l on on might be Branch dialysis dialysis different from the original. Added automatic ally from request for surgery [id number] Diabetes Diabetes Disease Active Metho di mellitus [...] Added automatic ally from request for surgery [id number] Neovascula Neovascula Disease Active U nivers r r 1-18 it[place] of glaucoma, glaucoma, [place] left [place] left eye [place] Medica l Branch Increased Increased Disease Active Uni vers intraocula intraocula 1-18 it y of r pressure r pressure [place] Fall Fall Disease Active 2016-06 Univers 0-13 ity of 00:00: [place] [address] Medical Branch Pneumonia Pneumonia Disease Active 2016-06 Uni vers 0-11 ity of 00:00: [place] [address] Medical Branch Diabetes Diabetes Disease Active 2016-06 Overview: Un lori mellitus mellitus 0-05 Formattin ity of 00:00: g of this [place] 00 note Medical might be Branch different from the original. Added automatic ally from request for surgery [id number] Pseudotumo Pseudotumo Disease Active U nivers r cerebri r cerebri 9-25 ity of 00:00: [place] [address] Medical Branch SANJUANA (acute SANJUANA (acute Disease Recur[facility] injury) injury) 00:00: Medical 00 Center Ulcer of Ulcer of Disease Recurre [facility] toe of toe of [facility] left foot left foot 00:00: [facility] 00 Center Hyperglyce Hyperglyce Disease Recurre [facility] 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 nce 7-16 Kenyatta kes type 2 type 2 00:00: Medical diabetes diabetes 00 Center mellitus mellitus Gastropare Gastropare Disease Recurre [facility] sis due to sis due to nce -16 Kenyatta kes DM DM 00:00: Medical 00 Center Bipolar Bipolar Disease Recurre [facility] disorder disorder nce [facility] 00[facility] Center Liver Liver Disease Active [facility] failure, failure, [facility] acute acute 00:00: Medical 00 Center CKD CKD Disease Active [facility] (chronic (chronic [facility] kidney kidney 00:00: Medical disease) disease) 00 Center Acute Acute Disease Active [facility] encephalop encephalop 7-16 Kenyatta kes athy athy 00:00: Medical 00 Center Peripheral Peripheral Disease Active [facility] neuropathy neuropathy 7-16 Kenyatta kes 00:00: Medical 00 Center Cyclic Cyclic Disease Active [facility] vomiting vomiting [facility] syndrome syndrome 00:00: Medica l 00 Center Anxiety Anxiety Disease Active [facility] Hypertensi Hypertensi Disease Active [facility] ve ve [facility] emergency emergency 00:00: [facility] 00 Center ACUTE RESP ACUTE Diagnosis Active 2016-09-09 Memoria FAILURE RESP 2-02 09:11:00 l FAILURE 00:00: Vin Active 00 07/23/2016 [facility] CONGESTION CONGESTIO Diagnosis Active 2016-07-24 Margi AMD N AMD 07-23 01:49:00 l DIARRHEA DIARRHEA 00:00: Jake gonzlaez Active 00 07/23/2016 [facility] Congestive Congestive Disease Active 2015-06 U T heart heart 08-11 Health failure failure 00:00: (CHF) (CHF) 00 SOB/SWELLI SOB/SWELL Diagnosis Active 2015-062016-06-10 Memoria NG ING Active 08-11 15:48:00 l 06/10/2016 00:00: Jake gonzalez [address] CHF/RENAL CHF/RENAL Diagnosis Active 2015-062016-06-24 Memoria DISEASE DISEASE 08-11 15:35:00 l Active 00:00: Vin 06/10/2016 00 [facility] Obesity Obesity Disease Active 2015-06 Univers (BMI (BMI 0-12 ity of 30-39.9) 30-39.9) 00:00: [place] [address] Medical Branch Hyperosmol Hyperosmol Disease Active 2015-06 U jessicaers ar ar 0-12 ity of non-ketoti non-ketoti [place] in c state in 00 Me dical patient patient Branch with 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 Hyperglyce Hyperglyce Disease Active 2015-06 U viviana maryam maryam 0-11 ity of 00:00: [place] [address] Medical Branch Diabetic Diabetic Disease Active Unive rs ulcer of ulcer of 5-07 ity of both feet [place] 00:[place] associated associated 00 Me dical with type with type Bran ch 2 diabetes 2 diabetes mellitus mellitus SANJUANA (acute SANJUANA (acute Disease Active U jessicaers kidney kidney 5-07 ity of injury) injury) 00:00: [place] [facility] Depression Depression Disease Active U nivers 5-07 ity of 00:00: [place] [address] Medical Branch Bipolar 1 Bipolar 1 Disease Active Uni vers disorder disorder 5-07 ity of 00:00: [place] [facility] Suicidal Suicidal Disease Active Unive rs ideation ideation 5-05 ity of 00:00: [place] [address] Medical Branch Diabetes Diabetes Disease Active Unive [...] 00:00: [place] cancer in cancer in 00 [facility] female female Branch Family Family Disease Active 2014-06 Univers history of history of 1-13 it y of ovarian ovarian 00:00: [place] cancer cancer 00 Medical Branch Galactorrh Galactorrh [...] SEIZURES 00:00: Jake gonzalez Active 00 06/26/2013 [facility] ABD PAIN ABD PAIN Diagnosis Active 2012-062013-04-19 Memoria Active 0 21:51:00 l 04/14/2013 19:00: Jake gonzalez [address] GASTROPERI GASTROPER Diagnosis Active 2012-09-13 Memoria SIS DAISY 2-12 15:17:00 l Active 00:00: Vin 08/02/2012 00 [facility] ABDOMINAL ABDOMINAL Diagnosis Active 2012-03-14 Memoria PAIN PAIN 9- 16:56:00 l Active 14:00: Vin 03/14/2012 00 [facility] NAUSEA, NAUSEA, Diagnosis Active 2012-03-14 Memoria VOMITING VOMITING 03-14 13:25:00 l Active 08:00: [place] 03/14/2012 00 [facility] N/V N/V Diagnosis Active 2011-12-08 Mem oria INABILITY INABILITY 11-27 11:14:00 l TO TO 00:00: Vin TOLERATE TOLERATE 00 PO PO Active 11/28/2011 [facility] VOMITTING Diagnosis Active 2011-11-28 Memoria VOMITTING 11-27 16:28:00 l Active 00:00: Vin 11/28/2011 00 [facility] VOMITTING, VOMITTING Diagnosis Active 2011-09-18 Memoria HIGH BLOOD , HIGH 09-17 09:45:00 l SUGAR BLOOD 00:00: [place] SUGAR 00 Active 09/18/2011 [facility] Methicilli Methicill Problem Active 2021-01-31 Memoria n in 08-31 22:29:25 l resistant resistant 00:00: Herm naeem Staphyloco Staphyloco 00 ccus ccus aureus aureus (organism) (organism) Active 09/01/2011 Problem 01/31/2021 09/01/11 - Elbow wound
Problem added by Discern Expert. [facility] MRSA MRSA Problem Active 2012-03-16 Memor ia Active 08-31 09:11:30 l 09/01/2011 00:00: Jake n Problem 00 03/16/2012 <sup>1</oliveros p>09/01/11 - Elbow wound
<sup>2< /sup>Probl em added by Discern Expert. [facility] VOMITING, VOMITING, Diagnosis Active 2011-09-01 Memoria BLOOD BLOOD 08-30 03:19:00 l SUGAR SUGAR 00:00: Vin READINGS READINGS 00 HIGH HIGH Active 08/31/2011 [facility] ELBOW ELBOW Diagnosis Active 2011-09-10 Mem oria ABSCESS/HY ABSCESS/HY 08-30 16:26:00 l PERGLYCEMI PERGLYCEMI 00:00: Tyrel rmann A A Active 00 08/31/2011 [facility] Hypokalemi Hypokalem Problem Active 2012-03-16 Memoria a ia Active 08-22 09:11:30 l 08/23/2011 00:00: Jake n Problem 00 03/16/2012 [facility] DKA DKA Diagnosis Active 2011-08-24 Mem oria Active 11:27:00 l 08/19/2011 00:00: Jake gonzalez [address] VOMITING VOMITING Diagnosis Active 2011-08-19 Memoria Active 16:21:00 l 08/19/2011 00:00: Jake gonzalez [address] Final: Final: Problem 2016-08-02 Mendoza janice Acute Acute 02:46:22 l respirator respirator He rmann y failure, y failure, unspecifie unspecifie d whether d whether with with hypoxia or hypoxia or hypercapni hypercapni a a 08/02/2016 [facility] Hypoglycem Hypoglyce Problem Inactiv 2012-03-16 Memoria ia maryam e 09:11:30 l Inactive Vin Problem 03/16/2012 [facility] Hypoglycem Hypoglyce Problem Inactiv 2013-04-22 Memoria ia maryam e 04:46:33 l (disorder) (disorder) He rmann Inactive Problem 04/22/2013 [facility] Gastropare Problem Resolve 2021-01-31 Memoria sis Gastropare d 22:29:25 l (disorder) sis Jake n (disorder) Resolved Problem 01/31/2021 [facility] Hypertensi Hypertens Problem Resolve 2021-01-31 Memoria ve montse d 22:29:25 l disorder, disorder, Herm naeem systemic systemic arterial arterial (disorder) (disorder) Resolved Problem 01/31/2021 [facility] Psychiatri Psychiatr Problem Resolve 2021-01-31 Memoria c ic d 22:29:25 l behavioral behavioral He rmann disability disability (finding) (finding) Resolved Problem 01/31/2021 [facility] Seizure Seizure Problem Resolve 2021-01-31 M emoria (finding) (finding) d 22:29:25 l Resolved [place] Problem 01/31/2021 [facility] Hypertensi Hypertens Problem Active 2012-03-16 Memoria on ion Active 09:11:30 l Problem Vin 03/16/2012 [facility] Hypomagnes Problem Active 2013-04-22 Deepali live Hypomagnes 04:46:33 l emia Vin Active Problem 04/22/2013 [facility] Nausea and Nausea Problem Active 2012-03-16 Memoria vomiting and 09:11:30 l vomiting Vin Active Problem 03/16/2012 [facility] ENCNTR FOR ENCNTR Diagnosis Active 2020-12-24 Memoria GENERAL FOR 10:39:00 l ADULT GENERAL Vin MEDICAL ADULT EXAM W/ MEDICAL EXAM W/ Active [facility] DMI DMI Diagnosis Active 2011-08-24 Mem oria KETOACD KETOACD 11:27:00 l UNCONTROLD UNCONTROLD He rmann Active [facility] OTHER OTHER Diagnosis Active 2011-09-10 Me moria GENERAL GENERAL 16:26:00 l SYMPTOMS SYMPTOMS Jake n Active [facility] HEART HEART Diagnosis Active 2016-06-24 Mem oria FAILURE, FAILURE, 15:35:00 l UNSPECIFIE UNSPECIFIE He rmann D D Active [facility] ACUTE ACUTE Diagnosis Active 2016-09-09 Mem oria RESPIRATOR RESPIRATOR 09:11:00 l Y FAILURE, Y FAILURE, He rmann UNSP W UNSP W HYPOXI HYPOXI Active [facility] Nausea and Nausea Problem Resolve 2021-01-31 2021-01-31 Memoria vomiting and d 6-10 22:29:25 22:29:25 l (disorder) vomiting 00:00: Herm naeem (disorder) 00 Resolved 11/29/2011 Problem 01/31/2021 [facility] Hypokalemi Hypokalem Problem Resolve 2021-01-31 2021-01-31 Memoria a ia d 3-04 22:29:25 22:29:25 l (disorder) (disorder) 00:00: He rmann Resolved 00 08/23/2011 Problem 01/31/2021 [facility] Disorder Disorder Problem Resolve 2021-01-31 2021-01-31 Memoria of of d 3-04 22:29:25 22:29:25 l magnesium magnesium 00:00: Herm naeem metabolism metabolism 00 (disorder) (disorder) Resolved 08/23/2011 Problem 01/31/2021 [facility] Hyperglyce Hyperglyc Problem Resolve 2021-01-31 2021-01-31 Memoria maryam emia d 08-19 22:29:25 22:29:25 l (disorder) (disorder) 00:00: He ally Resolved 00 08/20/2011 Problem 01/31/2021 [facility] Ketoacidos Ketoacido Problem Resolve 2021-01-31 2021-01-31 Memmarin is in sis in d 22:29:25 22:29:25 l diabetes diabetes 00:00: Jake gonzalez mellitus mellitus 00 (disorder) (disorder) Resolved 08/19/2011 Problem 01/31/2021 [facility] DKA DKA Problem Resolve 2013-04-22 2013-04-22 Memoria (diabetic (diabetic d 04:46:33 04:46:33 l ketoacidos ketoacidos 00:00: Tyrel thompson) es) 00 Resolved 08/19/2011 Problem 04/22/2013 [facility] History of Past Illness Condition Condition Condition Status Onset Resolution Last Treating Co mments Source Name Details Category Date Date Treatment Clinician Date Discharge Problem 2014-06-28 2014-06-28 Memoria Diagnosis: Discharge 06-26 16:34:37 16:34:37 l Gastropare Diagnosis: 06:00: Tyrel canales sis Gastropare 00 sis 06/26/2014 06/28/2014 [facility] Hyperglyce Problem Inactiv 2012-03-16 2012-03-16 Memmarin maryam Hyperglyce e - 09:11:30 09:11:30 l maryam 00:00: Vin Inactive 00 08/20/2011 Problem 03/16/2012 [facility] Allergies, Adverse Reactions, Alerts Allergy Allergy Status Severity Reaction(s) Onset Inactive Treating Comm ents Source Name Type Date Date Clinician Lactose Propensi Active GI 2020-06 Methodi ty to Intolerance 2- st adverse 00:00: Hospita reaction 00 l s to drug Iodinate Propensi Active Other (See 2020-06 Per Me thodi d ty to Comments) -[address] Contrast adverse 00:00: she has [...] of 00:00: [place] 00 Medical Branch Penicill Drug Active [facility]ness [facility] PENICILL Allergy Active High Sob [facility] ZOLPIDEM Allergy Active Other [facility] LISINOPR Allergy Active Other [facility] [place] [facility] GUAIFENE Allergy Active Other [facility] 01-03 [facility] NITROFUR Allergy Active High Anaphylaxis SL EH ANTOIN 01-03 MONOHYD/ 00:00: M-CRYST 00 Zolpidem Drug Active Other (See confusion [...] Allergy Comments) 01-03 [facility]: Medical 00 Alpha Guaifene Propensi Active Other - See numbness Univers sin ty to comments 01-03 ity of adverse 00:00: [place] reaction 00 Medical s Branch GUAIFENE DRUG Active Other-Cmnt Univ ers SIN INGREDI 01-03 ity of 00:00: [place] 00 [facility] Branch Nitrofur Propensi Active Other (See Other [...] Trometha substanc 00:00: mine e 00 Fluphena Allergy Active Other [place] zine to 4 reaction( Health substanc 00:00: s): ARM e 00 NUMBNESS Phenylep Propensi Active Hives Other Method i [...] Health substanc 00:00: s): Hives e 00 Lisinopr Propensi Active Other - See 2015-06 [...] 06-23 ity of 00:00: 00 Medical Branch Zolpidem Propensi Active Other [...] (see l s to comments) drug Guaifene Allergy Active Hives Other [place] sin to 12-30 reaction( Health substanc 00:00: s): Other e 00 (See Comments) , Other (see comments) , Other (See Comments) , Other (See Comments) , Other - See commentsn umbnessnu mbnessnum bnessnumb nessnumbn essnumbne ssnumbnes s PROLEX DRUG Active Other-Cmnt Univer s 12-30 ity of 00:00: 00 Medical Branch Guaifene Propensi Active Other [...] to s): drug HivesAirw ay closure penicill Drug Active [facility] lisinopr Drug Active [facility] Ambien Drug Active [facility] Prolixin Drug Active [facility] penicill Drug Active [facility] lisinopr Drug Active [facility] Ambien Drug Active [facility] Prolixin Drug Active [facility] Tape Other Active [facility] penicill Drug Active [facility] lisinopr Drug Active [facility] Ambien Drug Active [facility] Prolixin Drug Active [facility] codeine Drug Active [facility] penicill Drug Active [facility] lisinopr Drug Active [facility] Ambien Drug Active [facility] Prolixin Drug Active [facility] codeine Drug Active [facility] penicill Drug Active [facility] lisinopr Drug Active [facility] Ambien Drug Active [facility] Prolixin Drug Active [facility] penicill Drug Active [facility] lisinopr Drug Active [facility] Ambien Drug Active [facility] Prolixin Drug Active [facility] penicill Drug Active [facility] lisinopr Drug Active [facility] Ambien Drug Active [facility] Prolixin Drug Active [facility] penicill penicill Active Memori a ins ins l [place] codeine codeine Active Memoria l [place] morphine morphine Active Memori a l Vin lisinopr lisinopr Active Memori a il il l Vin Adhesive Adhesive Active Memori a Tape Tape l [place] Ambien Ambien Active Memoria l Vin Prolex Prolex Active Memoria DM DM l Vin Social History Social Habit Start Date Stop Date Quantity Comments Source History of tobacco Cigarette Smoker [facility] use Hospital Exposure to Yes [facility] SARS-CoV-2 (event) Hospit al Gender identity [facility] Sexual orientation [facility] History of Social 2022-08-25 2022-08-[address] function 00:00:00 00:00:00 Hospital Alcohol intake 2021-06-18 2021-06-18 Ex-drinker Jew 00:00:00 00:00:00 (finding) Hospital Tobacco use and 2021-05-14 2021-05-14 Smokeless tobacco Me thodist exposure 00:00:00 00:00:00 non-user Hospital Cigarettes smoked 2021-05-14 2021-05-14 [facility] current (pack per 00:00:00 00:00:00 [facility] day) - Reported Cigarette 2021-05-14 2021-05-14 Jew pack-years 00:00:00 00:00:00 Hospital Social History 2020-12-24 2020-12-24 [facility] fatou 15:49:37 15:49:37 Tobacco Comment 2017-11-12 2017-11-12 5 cigarettes per Met hodist 00:00:00 00:00:00 day Hospital Sex Assigned At [birth year] Jew 00:00:00 00:00:00 Hospital Smoking Status Start Date Stop Date Source Smokes tobacco daily 2021-05-14 00:00:00 [facility] [place] [facility] Former smoker 2020-06-27 00:00:00 2020-06-27 00:00:00 [facility] acute hospital Medications Ordered Filled Start Stop Current Ordering Indication Dosage Frequency Signature Comments Components Source Medication Medication Date Date Medication? Clinician (SIG) Name Name calcium 2022-0 Yes 1334mg [id number] Take 1,334 Methodi acetate,domingo 1-18 [id number] mg by s t sphat bind, 13:02: 3D mouth 3 Hos whit (Phoslyra) 39 (three) l 667 mg (169 times a mg day. calcium)/5 mL solution cyproheptad 0 Yes 4mg Q.[id number] Take 4 mg Methodi ine 1-18 [id number] by mouth [address] (PERIACTIN) 13:02: 3D (three) Hos whit 4 mg tablet 39 times a l day as needed for allergies. buPROPion 0 Yes 300mg QD Take 300 Met hodi XL 1-[address] (WELLBUTRIN 13:02: mouth Hospi ta XL) 300 MG 39 daily. l 24 hr tablet ascorbic 2021-0 Yes 500mg Q.[id number] Take 500 Methodi acid, 1-[id number] vitamin C, 13:02: 3D [...] jo-ann 39 l calcium 2021-0 Yes 667mg Q.[id number] Take 667 Methodi acetate 1-[id number] (PHOSLO) 13:02: 3D mouth [...] 39 nightly. l calcium 2021-0 Yes 1334mg Q.[id number] Take 1,334 Methodi acetate,domingo 1-18 [id number] mg by s t sphat bind, 13:02: 3D mouth 3 Hos whit (Phoslyra) 39 (three) l 667 mg (169 times a mg day. calcium)/5 mL solution cyproheptad 2021-0 Yes 4mg Q.[id number] Take 4 mg Methodi ine 1-18 [id number] by mouth [address] (PERIACTIN) 13:02: 3D (three) Hos whit 4 mg tablet 39 times a l day as needed for allergies. buPROPion 2021-0 Yes 300mg QD Take 300 Met hodi XL 1-[address] (WELLBUTRIN 13:02: mouth Hospi ta XL) 300 MG 39 daily. l 24 hr tablet ascorbic 2021-0 Yes 500mg Q.[id number] Take 500 Methodi acid, 1-[id number] vitamin C, 13:02: 3D [...] jo-ann 39 l calcium 2021-0 Yes 667mg Q.[id number] Take 667 [facility] acetate 1-[id number] (PHOSLO) 13:02: 3D mouth [...] 39 nightly. l calcium 2021-0 Yes 1334mg Q.84791475 Take 1,334 [facility] acetate,domingo 1-18 7859545491 mg by s t sphat bind, 13:02: 3D mouth 3 Hos whit (Phoslyra) 39 (three) l 667 mg (169 times a mg day. calcium)/5 mL solution cyproheptad 2021-0 Yes 4mg Q.50135138 Take 4 mg [facility] ine 1-18 [id number] by mouth [address] (PERIACTIN) 13:02: 3D (three) Hos whit 4 mg tablet 39 times a l day as needed for allergies. buPROPion 2021-0 Yes 300mg QD Take 300 Met hodi XL 1-[address] (WELLBUTRIN 13:02: mouth Hospi ta XL) 300 MG 39 daily. l 24 hr tablet ascorbic 2021-0 Yes 500mg Q.07012062 Take 500 [facility] acid, 1-[address] vitamin C, 13:02: 3D [...] jo-ann 39 l calcium 2021-0 Yes 667mg Q.54532758 Take 667 [facility] acetate 1-[address] (PHOSLO) 13:02: 3D mouth [...] 39 nightly. l calcium 2021-0 Yes 1334mg Q.83143009 Take 1,334 [facility] acetate,domingo 1-18 [id number] mg by s t sphat bind, 13:02: 3D mouth 3 Hos whit (Phoslyra) 39 (three) l 667 mg (169 times a mg day. calcium)/5 mL solution cyproheptad 0 Yes 4mg Q.14342707 Take 4 mg [facility] ine 1-18 7727279929 by mouth [address] (PERIACTIN) 13:02: 3D (three) Hos whit 4 mg tablet 39 times a l day as needed for allergies. buPROPion 0 Yes 300mg QD Take 300 Met hodi XL 1-[address] (WELLBUTRIN 13:02: mouth Hospi ta XL) 300 MG 39 daily. l 24 hr tablet ascorbic 2021-0 Yes 500mg Q.94362889 Take 500 [facility] acid, 1-[address] vitamin C, 13:02: 3D [...] jo-ann 39 l calcium 202-0 Yes 667mg Q.60089044 Take 667 [facility] acetate 1-[address] (PHOSLO) 13:02: 3D mouth [...] 39 nightly. l calcium 2021-0 Yes 1334mg Q.42154039 Take 1,334 [facility] acetate,domingo 1-18 6730105691 mg by s t sphat bind, 13:02: 3D mouth 3 Hos whit (Phoslyra) 39 (three) l 667 mg (169 times a mg day. calcium)/5 mL solution cyproheptad 2021-0 Yes 4mg Q.31793013 Take 4 mg [facility] ine 1-18 [id number] [address] mouth [address] (PERIACTIN) 13:02: 3D (three) Hos whit 4 mg tablet 39 times a l day as needed for allergies. buPROPion 2021-0 Yes 300mg QD Take 300 Met hodi XL 1-[address] (WELLBUTRIN 13:02: mouth Hospi ta XL) 300 MG 39 daily. l 24 hr tablet ascorbic 2021-0 Yes 500mg Q.22962185 Take 500 [facility] acid, 1-[address] vitamin C, 13:02: 3D [...] jo-ann 39 l calcium 2021-0 Yes 667mg Q.97089445 Take 667 [facility] acetate 1-[id number] (PHOSLO) 13:02: 3D mouth [...] 39 (two) l times a day. pravastatin 202-0 Yes 40mg QD Take 40 mg Methodi [...] 39 nightly. l calcium 2021-0 Yes 1334mg Q.22058413 Take 1,334 [facility] acetate,domingo 1-18 [id number] mg by s t sphat bind, 13:02: 3D mouth 3 Hos whit (Phoslyra) 39 (three) l 667 mg (169 times a mg day. calcium)/5 mL solution cyproheptad 2021-0 Yes 4mg Q.18978261 Take 4 mg [facility] ine 1-18 [id number] by mouth [address] (PERIACTIN) 13:02: 3D (three) Hos whit 4 mg tablet 39 times a l day as needed for allergies. buPROPion 2021-0 Yes 300mg QD Take 300 Met hodi XL 1-[address] (WELLBUTRIN 13:02: mouth Hospi ta XL) 300 MG 39 daily. l 24 hr tablet ascorbic 2021-0 Yes 500mg Q.10795639 Take 500 [facility] acid, 1-[id number] vitamin C, 13:02: 3D [...] jo-ann 39 l calcium 2021-0 Yes 667mg Q.11148831 Take 667 [facility] acetate 1-[id number] (PHOSLO) 13:02: 3D mouth [...] 39 nightly. l calcium 2021-0 Yes 1334mg Q.19996502 Take 1,334 [facility] acetate,domingo 1-18 [id number] mg by s t sphat bind, 13:02: 3D mouth 3 Hos whit (Phoslyra) 39 (three) l 667 mg (169 times a mg day. calcium)/5 mL solution cyproheptad 2021-0 Yes 4mg Q.83473490 Take 4 mg [facility] ine 1-18 [id number] [address] mouth [address] (PERIACTIN) 13:02: 3D (three) Hos whit 4 mg tablet 39 times a l day as needed for allergies. buPROPion 2021-0 Yes 300mg QD Take 300 Met hodi XL 1-[address] (WELLBUTRIN 13:02: mouth Hospi ta XL) 300 MG 39 daily. l 24 hr tablet ascorbic 2021-0 Yes 500mg Q.19793188 Take 500 [facility] acid, 1-[id number] vitamin C, 13:02: 3D [...] jo-ann 39 l calcium 2021-0 Yes 667mg Q.41441793 Take 667 [facility] acetate 1-[id number] (PHOSLO) 13:02: 3D mouth [...] 39 daily. l (DIALYVITE 800 ORAL) cyanocobala 2-0 Yes 1000ug Q.5D Take 1,000 Methodi min [...] 39 nightly. l calcium 2-0 Yes 1334mg Q.58027963 Take 1,334 [facility] acetate,domingo 1-18 [id number] mg by s t sphat bind, 13:02: 3D mouth 3 Hos whit (Phoslyra) 39 (three) l 667 mg (169 times a mg day. calcium)/5 mL solution cyproheptad 2021-0 Yes 4mg Q.02987027 Take 4 mg [facility] ine 1-18 [id number] [address] mouth [address] (PERIACTIN) 13:02: 3D (three) Hos whit 4 mg tablet 39 times a l day as needed for allergies. buPROPion 2021-0 Yes 300mg QD Take 300 Met hodi XL 1-[address] (WELLBUTRIN 13:02: mouth Hospi ta XL) 300 MG 39 daily. l 24 hr tablet ascorbic 2021-0 Yes 500mg Q.76356800 Take 500 [facility] acid, 1-[id number] vitamin C, 13:02: 3D [...] jo-ann 39 l calcium 2021-0 Yes 667mg Q.57513814 Take 667 [facility] acetate 1-[address] (PHOSLO) 13:02: 3D mouth [...] 39 nightly. l calcium 2021-0 Yes 1334mg Q.63131322 Take 1,334 [facility] acetate,domingo 1-18 [id number] mg by s t sphat bind, 13:02: 3D mouth 3 Hos whit (Phoslyra) 39 (three) l 667 mg (169 times a mg day. calcium)/5 mL solution cyproheptad 2021-0 Yes 4mg Q.14337747 Take 4 mg [facility] ine 1-18 [id number] by mouth [address] (PERIACTIN) 13:02: 3D (three) Hos whit 4 mg tablet 39 times a l day as needed for allergies. buPROPion 2021-0 Yes 300mg QD Take 300 Met [facility]odi XL 1-[address] (WELLBUTRIN 13:02: mouth Hospi ta XL) 300 MG 39 daily. l 24 hr tablet ascorbic 2021-0 Yes 500mg Q.59712368 Take 500 [facility] acid, 1-[id number] vitamin C, 13:02: 3D [...] jo-ann 39 l calcium 2021-0 Yes 667mg Q.21981352 Take 667 [facility] acetate 1-[id number] (PHOSLO) 13:02: 3D mouth [...] 39 nightly. l calcium 2021-0 Yes 1334mg Q.40837926 Take 1,334 [facility] acetate,domingo 1-18 [id number] mg by s t sphat bind, 13:02: 3D mouth 3 Hos whit (Phoslyra) 39 (three) l 667 mg (169 times a mg day. calcium)/5 mL solution cyproheptad 2021-0 Yes 4mg Q.42863447 Take 4 mg [facility] ine 1-18 [id number] [address] mouth [address] (PERIACTIN) 13:02: 3D (three) Hos whit 4 mg tablet 39 times a l day as needed for allergies. buPROPion 2021-0 Yes 300mg QD Take 300 Met [facility]odi XL 1-[address] (WELLBUTRIN 13:02: mouth Hospi ta XL) 300 MG 39 daily. l 24 hr tablet ascorbic 2022-0 Yes 500mg Q.00814965 Take 500 [facility] acid, 1-[id number] vitamin C, 13:02: 3D [...] jo-ann 39 l calcium 2022-0 Yes 667mg Q.24328354 Take 667 [facility] acetate 1-[id number] (PHOSLO) 13:02: 3D mouth [...] 39 nightly. l calcium 2021-0 Yes 1334mg Q.93508952 Take 1,334 [facility] acetate,domingo 1-18 [id number] mg by s t sphat bind, 13:02: 3D mouth 3 Hos whit (Phoslyra) 39 (three) l 667 mg (169 times a mg day. calcium)/5 mL solution cyproheptad 0 Yes 4mg Q.97010047 Take 4 mg [facility] ine 1-18 [id number] [address] mouth [address] (PERIACTIN) 13:02: 3D (three) Hos whit 4 mg tablet 39 times a l day as needed for allergies. buPROPion 2021-0 Yes 300mg QD Take 300 Met hodi XL 1-[address] (WELLBUTRIN 13:02: mouth Hospi ta XL) 300 MG 39 daily. l 24 hr tablet ascorbic 2021-0 Yes 500mg Q.77707619 Take 500 [facility] acid, 1-[id number] vitamin C, 13:02: 3D [...] jo-ann 39 l calcium 2021-0 Yes 667mg Q.48582682 Take 667 [facility] acetate 1-[id number] (PHOSLO) 13:02: 3D mouth [...] 39 nightly. l calcium 2021-0 Yes 1334mg Q.84617117 Take 1,334 [facility] acetate,domingo 1-18 [id number] mg by s t sphat bind, 13:02: 3D mouth 3 Hos whit (Phoslyra) 39 (three) l 667 mg (169 times a mg day. calcium)/5 mL solution cyproheptad 0 Yes 4mg Q.44799492 Take 4 mg [facility] ine 1-18 [id number] [address] mouth [address] (PERIACTIN) 13:02: 3D (three) Hos whit 4 mg tablet 39 times a l day as needed for allergies. buPROPion 2021-0 Yes 300mg QD Take 300 Met hodi XL 1-[address] (WELLBUTRIN 13:02: mouth Hospi ta XL) 300 MG 39 daily. l 24 hr tablet ascorbic 2021-0 Yes 500mg Q.75088128 Take 500 [facility] acid, 1-[id number] vitamin C, 13:02: 3D [...] jo-ann 39 l calcium 2021-0 Yes 667mg Q.67001375 Take 667 [facility] acetate 1-[id number] (PHOSLO) 13:02: 3D mouth [...] 39 nightly. l calcium 2021-0 Yes 1334mg Q.76864962 Take 1,334 [facility] acetate,domingo 1-18 [id number] mg by s t sphat bind, 13:02: 3D mouth 3 Hos whit (Phoslyra) 39 (three) l 667 mg (169 times a mg day. calcium)/5 mL solution cyproheptad 2021-0 Yes 4mg Q.[id number] Take 4 mg [facility] ine 1-18 [id number] [address] mouth [address] (PERIACTIN) 13:02: 3D (three) Hos whit 4 mg tablet 39 times a l day as needed for allergies. buPROPion 2021-0 Yes 300mg QD Take 300 Met hodi XL 1-[address] (WELLBUTRIN 13:02: mouth Hospi ta XL) 300 MG 39 daily. l 24 hr tablet ascorbic 2021-0 Yes 500mg Q.56756502 Take 500 [facility] acid, 1-[id number] vitamin C, 13:02: 3D [...] jo-ann 39 l calcium 2022-0 Yes 667mg Q.[id number] Take 667 [facility] acetate 1-[id number] (PHOSLO) 13:02: 3D mouth [...] 39 nightly. l calcium 2021-0 Yes 1334mg Q.83116473 Take 1,334 [facility] acetate,domingo 1-18 [id number] mg by s t sphat bind, 13:02: 3D mouth 3 Hos whit (Phoslyra) 39 (three) l 667 mg (169 times a mg day. calcium)/5 mL solution cyproheptad 2021-0 Yes 4mg Q.92036316 Take 4 mg [facility] ine 1-18 [id number] [address] mouth [address] (PERIACTIN) 13:02: 3D (three) Hos whit 4 mg tablet 39 times a l day as needed for allergies. buPROPion 2021-0 Yes 300mg QD Take 300 Met hodi XL 1-[address] (WELLBUTRIN 13:02: mouth Hospi ta XL) 300 MG 39 daily. l 24 hr tablet ascorbic 2021-0 Yes 500mg Q.[id number] Take 500 [facility] acid, 1-[id number] vitamin C, 13:02: 3D [...] jo-ann 39 l calcium 2021-0 Yes 667mg Q.57906554 Take 667 [facility] acetate 1-[id number] (PHOSLO) 13:02: 3D mouth [...] 39 nightly. l calcium 2-0 Yes 1334mg Q.62391217 Take 1,334 [facility] acetate,domingo 1-18 [id number] mg by s t sphat bind, 13:02: 3D mouth 3 Hos whit (Phoslyra) 39 (three) l 667 mg (169 times a mg day. calcium)/5 mL solution cyproheptad 202-0 Yes 4mg Q.08309789 Take 4 mg [facility] ine 1-18 [id number] [address] mouth [address] (PERIACTIN) 13:02: 3D (three) Hos whit 4 mg tablet 39 times a l day as needed for allergies. buPROPion 2021-0 Yes 300mg QD Take 300 Met [facility]odi XL 1-[address] (WELLBUTRIN 13:02: mouth Hospi ta XL) 300 MG 39 daily. l 24 hr tablet ascorbic 2021-0 Yes 500mg Q.22310003 Take 500 [facility] acid, 1-[id number] vitamin C, 13:02: 3D [...] jo-ann 39 l calcium 2021-0 Yes 667mg Q.06090129 Take 667 [facility] acetate 1-[id number] (PHOSLO) 13:02: 3D mouth [...] 39 nightly. l calcium 2021-0 Yes 1334mg Q.72535992 Take 1,334 [facility] acetate,domingo 1-18 [id number] mg by s t sphat bind, 13:02: 3D mouth 3 Hos whit (Phoslyra) 39 (three) l 667 mg (169 times a mg day. calcium)/5 mL solution cyproheptad 2021-0 Yes 4mg Q.94090566 Take 4 mg [facility] ine 1-18 [id number] [address] mouth [address] (PERIACTIN) 13:02: 3D (three) Hos whit 4 mg tablet 39 times a l day as needed for allergies. buPROPion 2021-0 Yes 300mg QD Take 300 Met hodi XL 1-[address] (WELLBUTRIN 13:02: mouth Hospi ta XL) 300 MG 39 daily. l 24 hr tablet ascorbic 2021-0 Yes 500mg Q.85486310 Take 500 [facility] acid, 1-[id number] vitamin C, 13:02: 3D [...] jo-ann 39 l calcium 2021-0 Yes 667mg Q.88681400 Take 667 [facility] acetate 1-[id number] (PHOSLO) 13:02: 3D mouth [...] 39 nightly. l calcium 2021-0 Yes 1334mg Q.84314936 Take 1,334 [facility] acetate,domingo 1-18 [id number] mg by s t sphat bind, 13:02: 3D mouth 3 Hos whit (Phoslyra) 39 (three) l 667 mg (169 times a mg day. calcium)/5 mL solution cyproheptad 2021-0 Yes 4mg Q.33079324 Take 4 mg [facility] ine 1-18 [id number] [address] mouth [address] (PERIACTIN) 13:02: 3D (three) Hos whit 4 mg tablet 39 times a l day as needed for allergies. buPROPion 2021-0 Yes 300mg QD Take 300 Met hodi XL 1-[address] (WELLBUTRIN 13:02: mouth Hospi ta XL) 300 MG 39 daily. l 24 hr tablet ascorbic 2022-0 Yes 500mg Q.37239287 Take 500 [facility] acid, 1-[id number] vitamin C, 13:02: 3D [...] jo-ann 39 l calcium 2-0 Yes 667mg Q.67976641 Take 667 [facility] acetate 1-[id number] (PHOSLO) 13:02: 3D mouth [...] 39 nightly. l calcium 2021-0 Yes 1334mg Q.92331591 Take 1,334 [facility] acetate,domingo 1-18 [id number] mg by s t sphat bind, 13:02: 3D mouth 3 Hos whit (Phoslyra) 39 (three) l 667 mg (169 times a mg day. calcium)/5 mL solution cyproheptad 0 Yes 4mg Q.70011203 Take 4 mg [facility] ine 1-18 [id number] [address] mouth [address] (PERIACTIN) 13:02: 3D (three) Hos whit 4 mg tablet 39 times a l day as needed for allergies. buPROPion 0 Yes 300mg QD Take 300 Met hodi XL 1-[address] (WELLBUTRIN 13:02: mouth Hospi ta XL) 300 MG 39 daily. l 24 hr tablet ascorbic 2021-0 Yes 500mg Q.69655407 Take 500 [facility] acid, 1-[id number] vitamin C, 13:02: 3D [...] jo-ann 39 l calcium 2021-0 Yes 667mg Q.98782954 Take 667 [facility] acetate 1-[id number] (PHOSLO) 13:02: 3D mouth [...] jo-ann 39 l calcium 2021-0 Yes 667mg Q.59131571 Take 667 [facility] acetate 1-[id number] (PHOSLO) 13:02: 3D mouth [...] 39 nightly. l calcium 2021-0 Yes 1334mg Q.57597770 Take 1,334 [facility] acetate,domingo 1-18 [id number] mg by s t sphat bind, 13:02: 3D mouth 3 Hos whit (Phoslyra) 39 (three) l 667 mg (169 times a mg day. calcium)/5 mL solution cyproheptad 2021-0 Yes 4mg Q.71732017 Take 4 mg [facility] ine 1-18 [id number] [address] mouth [address] (PERIACTIN) 13:02: 3D (three) Hos whit 4 mg tablet 39 times a l day as needed for allergies. buPROPion 2021-0 Yes 300mg QD Take 300 Met hodi XL 1-[address] (WELLBUTRIN 13:02: mouth Hospi ta XL) 300 MG 39 daily. l 24 hr tablet ascorbic 2022-0 Yes 500mg Q.61039248 Take 500 [facility] acid, 1-[id number] vitamin C, 13:02: 3D [...] mg at night vancomycin 2020-06- No 750mg Q.08230838 Infuse 750 [facility] 750 mg in 07-08 [id number] mg into a [facility] sodium 00:00: 05:59 [facility] chloride 00 :00 catheter 3 l 0.9% 250 mL (three) IVPB times a week for 19 days. Administer 3 times weekly in dialysis vancomycin 2020-06- No 750mg Q.98396636 Infuse 750 [facility] 750 mg in 07-08 [id number] mg into a [address] sodium 00:00: 05:59 [facility] chloride 00 :00 catheter 3 l 0.9% 250 mL (three) IVPB times a week for 19 days. Administer 3 times weekly in dialysis vancomycin 2020-06- No 750mg Q.23345633 Infuse 750 [facility] 750 mg in 07-08 [id number] mg into a [address] sodium 00:00: 05:59 [facility] chloride 00 :00 catheter 3 l 0.9% 250 mL (three) IVPB times a week for 19 days. Administer 3 times weekly in dialysis vancomycin 2020-06- No 750mg Q.40753756 Infuse 750 [facility] 750 mg in 07-08 [id number] mg into a [facility] sodium 00:00: 05:59 3[facility] chloride 00 :00 catheter 3 l 0.9% 250 mL (three) IVPB times a week for 19 days. Administer 3 times weekly in dialysis vancomycin 2020-06- No 750mg Q.68637117 Infuse 750 [facility] 750 mg in 07-08 [id number] mg into a [address] sodium 00:00: 05:59 [facility] chloride 00 :00 catheter 3 l 0.9% 250 mL (three) IVPB times a week for 19 days. Administer 3 times weekly in dialysis vancomycin 2020-06- No 750mg Q.48977549 Infuse 750 [facility] 750 mg in 07-[id number] mg [address] sodium 00:00: 05:59 3[facility] chloride 00 :00 catheter 3 l 0.9% 250 mL (three) IVPB times a week for 19 days. Administer 3 times weekly in dialysis vancomycin 2020-06- No 750mg Q.15669527 Infuse 750 [facility] 750 mg in 07-08 [id number] mg into a [facility] sodium 00:00: 05:59 3[facility] venous [facility] chloride 00 :00 catheter 3 l 0.9% 250 mL (three) IVPB times a week for 19 days. Administer 3 times weekly in dialysis vancomycin 2020-06- No 750mg Q.22541719 Infuse 750 [facility] 750 mg in 07-08 [id number] mg into a [facility] sodium 00:00: 05:59 3[facility] venous [facility] chloride 00 :00 catheter 3 l 0.9% 250 mL (three) IVPB times a week for 19 days. Administer 3 times weekly in dialysis vancomycin 2020-06- No 750mg Q.70181872 Infuse 750 [facility] 750 mg in 07-08 [id number] mg into a [facility] sodium 00:00: 05:59 3[facility] venous [facility] chloride 00 :00 catheter 3 l 0.9% 250 mL (three) IVPB times a week for 19 days. Administer 3 times weekly in dialysis vancomycin 2020-06- No 750mg Q.59107751 Infuse 750 [facility] 750 mg in 07-08 [id number] mg into a [facility] sodium 00:00: 05:59 3[facility] venous [facility] chloride 00 :00 catheter 3 l 0.9% 250 mL (three) IVPB times a week for 19 days. Administer 3 times weekly in dialysis vancomycin 2020-06- No 750mg Q.03005907 Infuse 750 [facility] 750 mg in 07-08 [id number] mg into a [address] sodium 00:00: 05:59 3[facility] venous [facility] chloride 00 :00 catheter 3 l 0.9% 250 mL (three) IVPB times a week for 19 days. Administer 3 times weekly in dialysis vancomycin 2020-06- No 750mg Q.26287820 Infuse 750 [facility] 750 mg in 07-08 [id number] mg into a [address] sodium 00:00: 05:59 3[facility] venous [facility] chloride 00 :00 catheter 3 l 0.9% 250 mL (three) IVPB times a week for 19 days. Administer 3 times weekly in dialysis vancomycin 2020-06- No 750mg Q.46984325 Infuse 750 [facility] 750 mg in 07-[id number] mg into a [address] sodium 00:00: 05:59 3[facility] venous [facility] chloride 00 :00 catheter 3 l 0.9% 250 mL (three) IVPB times a week for 19 days. Administer 3 times weekly in dialysis HYDROcodone 2020-06- No 08501 1{tbl} Q6H Take 1 [facility] -acetaminop 2-19 07- tablet by [facility] ([employer]) 00:00: 05:59 mouth Hosp jo-ann 5-325 mg 00 :00 every 6 l per tablet (six) hours as needed for severe pain for up to 5 days .acute pain. Max Daily Amount: 4 tablets HYDROcodone 2020-06 No [id number] 1{tbl} Q6H Take 1 [facility] -acetaminop 2-19 07- tablet [facility] ([employer]) 00:00: 05:59 mouth Hosp jo-ann 5-325 mg 00 :00 every 6 l per tablet (six) hours as needed for severe pain for up to 5 days .acute pain. Max Daily Amount: 4 tablets HYDROcodone 2020-06 No [id number] 1{tbl} Q6H Take 1 [facility] -acetaminop 2-29 -[address] [facility] [facility] ([employer]) 00:00: 05:59 mouth Hosp jo-ann 5-325 mg 00 :00 every 6 l per tablet (six) hours as needed for severe pain for up to 5 days .acute pain. Max Daily Amount: 4 tablets HYDROcodone 2020-06 No [id number] 1{tbl} Q6H Take 1 [facility] -acetaminop 2-29 -[address] [facility] ([employer]) 00:00: 05:59 mouth Hosp jo-ann 5-325 mg 00 :00 every 6 l per tablet (six) hours as needed for severe pain for up to 5 days .acute pain. Max Daily Amount: 4 tablets HYDROcodone 2020-06 1{tbl} Q6H Take 1 [facility] -acetaminop 2-29 -[address] [facility] ([employer]) 00:00: 05:59 mouth Hosp jo-ann 5-325 mg 00 :00 every 6 l per tablet (six) hours as needed for severe pain for up to 5 days .acute pain. Max Daily Amount: 4 tablets HYDROcodone 2020-06 1{tbl} Q6H Take 1 [facility] -acetaminop 2-29 -[address] [facility] ([employer]) 00:00: 05:59 mouth Hosp jo-ann 5-325 mg 00 :00 every 6 l per tablet (six) hours as needed for severe pain for up to 5 days .acute pain. Max Daily Amount: 4 tablets HYDROcodone 2020-06 1{tbl} Q6H Take 1 [facility] -acetaminop 2-29 -[address] [facility] ([employer]) 00:00: 05:59 mouth Hosp jo-ann 5-325 mg 00 :00 every 6 l per tablet (six) hours as needed for severe pain for up to 5 days .acute pain. Max Daily Amount: 4 tablets HYDROcodone 2020-06 1{tbl} Q6H Take 1 [facility] -acetaminop 2-29 -[address] [facility] ([employer]) 00:00: 05:59 mouth Hosp jo-ann 5-325 mg 00 :00 every 6 l per tablet (six) hours as needed for severe pain for up to 5 days .acute pain. Max Daily Amount: 4 tablets HYDROcodone 2020-06 1{tbl} Q6H Take 1 [facility] -acetaminop 2-29 -[address] [facility] ([employer]) 00:00: 05:59 mouth Hosp jo-ann 5-325 mg 00 :00 every 6 l per tablet (six) hours as needed for severe pain for up to 5 days .acute pain. Max Daily Amount: 4 tablets HYDROcodone 2020-06 1{tbl} Q6H Take 1 [facility] -acetaminop 2-29 -[address] [facility] ([employer]) 00:00: 05:59 mouth Hosp jo-ann 5-325 mg 00 :00 every 6 l per tablet (six) hours as needed for severe pain for up to 5 days .acute pain. Max Daily Amount: 4 tablets HYDROcodone 2020-06- No [id number] 1{tbl} Q6H Take 1 [facility] -acetaminop 2-29 -[address] [facility] ([employer]) 00:00: 05:59 mouth Hosp jo-ann 5-325 mg 00 :00 every 6 l per tablet (six) hours as needed for severe pain for up to 5 days .acute pain. Max Daily Amount: 4 tablets HYDROcodone 2020-06- No [id number] 1{tbl} Q6H Take 1 [facility] -acetaminop 2-29 -[address] [facility] ([employer]) 00:00: 05:59 mouth Hosp jo-ann 5-325 mg 00 :00 every 6 l per tablet (six) hours as needed for severe pain for up to 5 days .acute pain. Max Daily Amount: 4 tablets HYDROcodone 2020-06 No [id number] 1{tbl} Q6H Take 1 [facility] -acetaminop 2-29 -[address] [facility] ([employer]) 00:00: 05:59 mouth Hosp jo-ann 5-325 mg [...] [facility]i -acetaminop 2-05 12-13 tablets by s [facility] ([employer]) 00:00: 05:59 mouth Hosp jo-ann 5-325 mg 00 :00 every 8 l per tablet (eight) hours as needed for severe pain for up to 7 days .acute pain. Max Daily Amount: 6 tablets HYDROcodone 2020-06 2{tbl} Q8H Take 2 [facility] -acetaminop 2-05 12-13 tablets by s t hen ([employer]) 00:00: 05:59 mouth Hosp jo-ann 5-325 mg 00 :00 every 8 l per tablet (eight) hours as needed for severe pain for up to 7 days .acute pain. Max Daily Amount: 6 tablets HYDROcodone 2020-06 2{tbl} Q8H Take 2 [facility] -acetaminop 2-05 12-13 tablets by s t hen ([employer]) 00:00: 05:59 mouth Hosp jo-ann 5-325 mg 00 :00 every 8 l per tablet (eight) hours as needed for severe pain for up to 7 days .acute pain. Max Daily Amount: 6 tablets HYDROcodone 2020-0628 2{tbl} Q8H Take 2 [facility] -acetaminop 2-05 12-13 tablets by s t hen ([employer]) 00:00: 05:59 mouth Hosp jo-ann 5-325 mg 00 :00 every 8 l per tablet (eight) hours as needed for severe pain for up to 7 days .acute pain. Max Daily Amount: 6 tablets HYDROcodone 2020-06 2{tbl} Q8H Take 2 [facility] -acetaminop 2-05 12-13 tablets by s t hen ([employer]) 00:00: 05:59 mouth Hosp jo-ann 5-325 mg 00 :00 every 8 l per tablet (eight) hours as needed for severe pain for up to 7 days .acute pain. Max Daily Amount: 6 tablets HYDROcodone 2020-06 2{tbl} Q8H Take 2 [facility] -acetaminop 2-05 12-13 tablets by s t hen ([employer]) 00:00: 05:59 mouth [facility]osp jo-ann 5-325 mg 00 :00 every 8 l per tablet (eight) hours as needed for severe pain for up to 7 days .acute pain. Max Daily Amount: 6 tablets HYDROcodone 2020-0628 2{tbl} Q8H Take 2 [facility] -acetaminop 2-05 12-13 tablets by s t hen ([employer]) 00:00: 05:59 mouth Hosp jo-ann 5-325 mg 00 :00 every 8 l per tablet (eight) hours as needed for severe pain for up to 7 days .acute pain. Max Daily Amount: 6 tablets HYDROcodone 2020-06 2{tbl} Q8H Take 2 [facility] -acetaminop 2-05 12-13 tablets by s t hen ([employer]) 00:00: 05:59 mouth [facility]osp jo-ann 5-325 mg 00 :00 every 8 l per tablet (eight) hours as needed for severe pain for up to 7 days .acute pain. Max Daily Amount: 6 tablets HYDROcodone 2020-06 2{tbl} Q8H Take 2 [facility] -acetaminop 2-05 12-13 tablets by s t hen ([employer]) 00:00: 05:59 mouth Hosp jo-ann 5-325 mg 00 :00 every 8 l per tablet (eight) hours as needed for severe pain for up to 7 days .acute pain. Max Daily Amount: 6 tablets HYDROcodone 2020-0628 2{tbl} Q8H Take 2 [facility] -acetaminop 2-05 12-13 tablets by s t hen ([employer]) 00:00: 05:59 mouth Hosp jo-ann 5-325 mg 00 :00 every 8 l per tablet (eight) hours as needed for severe pain for up to 7 days .acute pain. Max Daily Amount: 6 tablets HYDROcodone 2020-0628 2{tbl} Q8H Take 2 [facility] -acetaminop 2-05 12-13 tablets by s t hen ([employer]) 00:00: 05:59 mouth Hosp jo-ann 5-325 mg 00 :00 every 8 l per tablet (eight) hours as needed for severe pain for up to 7 days .acute pain. Max Daily Amount: 6 tablets predniSONE 2020-06- No [id number] Take M ethodi (DELTASONE) 07-18 Prednisone s t 50 mg 00:00: 00:00 50mg 13 [facility]ospita tablet 00 :00 hours, 7 l hours, and 1 hour prior to scheduled procedure on 05/19/2021 for contrast allergy prophylaxi s. predniSONE 2020-06- No [id number] Take M ethodi (DELTASONE) 07-18 1205 Prednisone s t 50 mg 00:00: 00:00 50mg 13 [facility]ospita tablet 00 :00 hours, 7 l hours, and 1 hour prior to scheduled procedure on 05/19/2021 for contrast allergy prophylaxi s. predniSONE 2020-06- No [id number] Take M ethodi (DELTASONE) 07-1805 Prednisone s t 50 mg 00:00: 00:00 50mg 13 [facility]ospita tablet 00 :00 hours, 7 l hours, and 1 hour prior to scheduled procedure on 05/19/2021 for contrast allergy prophylaxi s. predniSONE 2020-06- No [id number] Take M ethodi (DELTASONE) 07-18 12-05 Prednisone s t 50 mg 00:00: 00:00 50mg 13 [facility] tablet 00 :00 hours, 7 l hours, and 1 hour prior to scheduled procedure on 05/19/2021 for contrast allergy prophylaxi s. predniSONE 2020-06- No [id number] Take M ethodi (DELTASONE) 07-18 12-05 Prednisone s t 50 mg 00:00: 00:00 50mg 13 [facility] tablet 00 :00 hours, 7 l hours, and 1 hour prior to scheduled procedure on 05/19/2021 for contrast allergy prophylaxi s. predniSONE 2020-06- No [id number] Take M ethodi (DELTASONE) 07-18 12-05 Prednisone s t 50 mg 00:00: 00:00 50mg 13 [facility] tablet 00 :00 hours, 7 l hours, and 1 hour prior to scheduled procedure on 05/19/2021 for contrast allergy prophylaxi s. predniSONE 2020-06- No [id number] Take M ethodi (DELTASONE) 07-18 12-05 Prednisone s t 50 mg 00:00: 00:00 50mg 13 [facility] tablet 00 :00 hours, 7 l hours, and 1 hour prior to scheduled procedure on 05/19/2021 for contrast allergy prophylaxi s. predniSONE 2020-06- No [id number] Take M ethodi (DELTASONE) 07-18 12-05 Prednisone s t 50 mg 00:00: 00:00 50mg 13 [facility] tablet 00 :00 hours, 7 l hours, and 1 hour prior to scheduled procedure on 05/19/2021 for contrast allergy prophylaxi s. predniSONE 2020-06- No [id number] Take M ethodi (DELTASONE) 07-18 12-05 Prednisone s t 50 mg 00:00: 00:00 50mg 13 [facility] tablet 00 :00 hours, 7 l hours, and 1 hour prior to scheduled procedure on 05/19/2021 for contrast allergy prophylaxi s. predniSONE 2020-06- No [id number] Take M ethodi (DELTASONE) 07-18 12-05 Prednisone [...] 0-03 by mouth. ity of tablet 11:08: [place] [address] [facility] aspirin 81 2020-06 Yes 81mg Take 1 Unive rs mg chewable 0-03 tablet by ity of tablet 11:08: mouth [place] [address] daily. Medical Branch divalproex 2020-06 Yes 500mg Take 500 Un lori ER 0-01 mg by ity of (DEPAKOTE 23:08: mouth 2 [place] ER) 500 mg 36 (two) Medical 24 hr times Branch tablet daily. gabapentin 2020-06 Yes 100mg Take 100 Un lori 100 mg 0-01 mg by ity of capsule 23:08: mouth 2 [place] [address] (two) Medical times Branch daily. vitamin C 2020-06 Yes 2000mg Take 2,000 Univers with sia 0-01 mg by ity of hips 23:08: mouth 2 [place] (VITAMIN C) 36 (two) Medical 1,000 mg times Branch tablet daily. metoprolol 2020-06 Yes 50mg Take 50 mg U nivers tartrate 50 0-01 by mouth ity of mg tablet 23:08: daily. [address] Branch folic 2020-06 Yes 800mg Take 800 Univers acid/vit B 0-01 mg by ity of complex and 23:08: mouth [place] C 36 daily. Medical (DIALYVITE Branch 800 ORAL) linagliptin 2020-06 Yes Take by Uni vers (TRADJENTA) 0-01 mouth. ity of 5 mg tablet 23:08: [address] Branch spironolact 2020-06 Yes 50mg Take 50 mg Univers one 50 mg 0-01 by mouth ity of tablet 23:08: daily. [place] [address] Medical Branch pravastatin 2020-06 Yes 40mg Take 40 mg Univers 40 mg 0-01 by mouth ity of tablet 23:08: daily. [place] [address] Medical Branch mv-mn/iron/ 2020-06 Yes 1{capsu Take 1 U nivers folic 0-01 le} capsule by ity of acid/herb 23:08: mouth [place] [address] 36 daily. Medical (VITAMIN D3 Branch COMPLETE ORAL) SERTraline 2020-06 Yes 50mg Take 50 mg U nivers 50 mg 0-01 by mouth ity of tablet 23:08: daily. [place] [address] Medical Branch calcium 2020-06 Yes 667mg Take 667 Unive rs acetate 667 0-01 mg by ity of mg capsule 23:08: mouth 3 [place] (three) Medical times Branch daily with meals. cetirizine 2020-06 Yes 1{tbl} Take 1 Uni vers HCl/pseudoe 0-01 tablet by ity of phedrine 23:08: mouth [place] (ZYRTEC-D 36 daily. Medical ORAL) Branch furosemide 2020-06 Yes 40mg Take 40 mg U nivers 40 mg 0-01 by mouth 2 ity of tablet 23:08: (two) [place] [address] times Medical daily. Branch divalproex 2020-06 Yes 500mg Take 500 Un lori ER 0-01 mg by ity of (DEPAKOTE 23:08: mouth 2 [place] ER) 500 mg 36 (two) Medical 24 hr times Branch tablet daily. gabapentin 2020-06 Yes 100mg Take 100 Un lori 100 mg 0-01 mg by ity of capsule 23:08: mouth 2 [place] 36 (two) Medical times Branch daily. vitamin C 2020-06 Yes 2000mg Take 2,000 Univers with sia 0-01 mg by ity of hips 23:08: mouth 2 [place] (VITAMIN C) 36 (two) Medical 1,000 mg times Branch tablet daily. metoprolol 2020-06 Yes 50mg Take 50 mg U nivers tartrate 50 0-01 by mouth ity of mg tablet 23:08: daily. [place] [address] [facility] Branch folic 2020-06 Yes 800mg Take 800 Univers acid/vit B 0-01 mg by ity of complex and 23:08: mouth [place] C 36 daily. Medical (DIALYVITE Branch 800 ORAL) linagliptin 2020-06 Yes Take by Uni vers (TRADJENTA) 0-01 mouth. ity of 5 mg tablet 23:08: [place] [address] [facility] Branch spironolact 2020-06 Yes 50mg Take 50 mg Univers one 50 mg 0-01 by mouth ity of tablet 23:08: daily. [place] [address] Medical Branch pravastatin 2020-06 Yes 40mg Take 40 mg Univers 40 mg 0-01 by mouth ity of tablet 23:08: daily. [place] [address] Medical Branch mv-mn/iron/ 2020-06 Yes 1{capsu Take 1 U nivers folic 0-01 le} capsule by ity of acid/herb 23:08: mouth [place] [address] 36 daily. Medical (VITAMIN D3 Branch COMPLETE ORAL) SERTraline 2020-06 Yes 50mg Take 50 mg U nivers 50 mg 0-01 by mouth ity of tablet 23:08: daily. [place] [address] Medical Branch calcium 2020-06 Yes 667mg Take [...] = 1 mL, l 1999 19:37: IV, [place] units/mL 00 Q-M-W-F, preservativ to be e-free given at injectable post solution Dialysis sessions, 0 Refill(s) epoetin Yes 2,000 unit Mendoza janice giovanny-epbx 8-10 = 1 mL, l 1999 19:37: IV, [place] units/mL 00 Q-M-W-F, preservativ to be e-free given at injectable post solution Dialysis sessions, 0 Refill(s) epoetin Yes 2,000 unit [place] janice giovanny-epbx 8-10 = 1 mL, l 1999 19:37: IV, [place] units/mL 00 Q-M-W-F, preservativ to be e-free given at injectable post solution Dialysis sessions, 0 Refill(s) epoetin Yes 2,000 unit Mendoza janice giovanny-epbx 8-10 = 1 mL, l 1999 19:37: IV, Vin units/mL 00 Q-M-W-F, preservativ to be e-free given at injectable post solution Dialysis sessions, 0 Refill(s) gabapentin 2021-0 Yes 300 mg = 1 M emoria [...] naeem 00 13 cap, 0 Refill(s) amLODIPine 0 Yes 10 mg = 1 Me moria 10 mg oral 8-10 tab, PO, l tablet 19:33: Daily, # [place] 00 30 tab, 2 Refill(s) busPIRone 0 Yes 7.5 mg = 1 Me moria 7.5 mg oral 8-10 tab, PO, l tablet 19:33: BID, 0 [place] 00 Refill(s) buPROPion 0 Yes 75 mg = 1 Mem oria 75 mg oral 8-10 tab, PO, l tablet 19:33: Daily, # [place] 00 14 tab, 0 Refill(s) amLODIPine 0 Yes 10 mg = 1 Me moria 10 mg oral 8-10 tab, PO, l tablet 19:33: Daily, # [place] 00 30 tab, 2 Refill(s) busPIRone 0 Yes 7.5 mg = 1 Me moria 7.5 mg oral 8-10 tab, PO, l tablet 19:33: BID, 0 Vin 00 Refill(s) buPROPion 2020-0 Yes 75 mg = 1 Mem oria 75 mg oral 8-10 tab, PO, l tablet 19:33: Daily, # [place] 00 14 tab, 0 Refill(s) amLODIPine 0 Yes 10 mg = 1 Me moria 10 mg oral 8-10 tab, PO, l tablet 19:33: Daily, # Vin 00 30 tab, 2 Refill(s) busPIRone Yes 7.5 mg = 1 Me moria 7.5 mg oral 8-10 tab, PO, l tablet 19:33: BID, 0 [place] 00 Refill(s) buPROPion Yes 75 mg = 1 Mem oria 75 mg oral 8-10 tab, PO, l tablet 19:33: Daily, # [place] 00 14 tab, 0 Refill(s) amLODIPine Yes [...] tab, PO, l tablet 19:33: Daily, # [place] 00 14 tab, 0 Refill(s) Norvasc No [...] 25 gm = 50 mL, 0 Epogen 2020-0 No Notes: 01-27 WASTE: F/P l 22:00: - Red; E Vin 00 Red MEDICIATIO N WASTE Product Size: 2,000 unit Product Wasted: ____unit Epogen No Notes: 01-27 WASTE: F/P l 22:00: - Red; E [place] 00 Red MEDICIATIO N WASTE Product Size: 2,000 unit Product Wasted: ____unit Epogen No Notes: 01-27 WASTE: F/P l 22:00: - Red; E Vin 00 Red MEDICIATIO N WASTE Product Size: 2,000 unit Product Wasted: ____unit Epogen No Notes: 01-27 WASTE: F/P l 22:00: - Red; E [place] 00 Red MEDICIATIO N WASTE Product Size: 2,000 unit Product Wasted: ____unit D5NS 1,000 No 1,000 mL, Me moria mL 01-27 Rate: 20 l 20:28: ml/hr, [place] 00 Infuse over: 50 hr, Route: IV, [...] 01-27 not exceed l 09:29: 4 gm/day. [place] 00 (Same as: Tylenol) tramadol No Notes: [...] (Same As: Ultram) heparin No Notes: Memoria 8- porcine l 02:00: heparin Vin 00 heparin No Notes: [facility]oria 8- porcine l 02:00: heparin [place] 00 heparin No Notes: Memoria 8-09 porcine l 02:00: heparin Vin 00 heparin No Notes: Memoria 8-09 porcine l 02:00: heparin Vin 00 Magnesium No Notes: Memori a Oxide - (Same as: l 22:54: Mag-Ox Vin 00 400) Magnesium oxide [id number] g elemental magnesium Dose=____m g magnesium oxide (___mg elemental magnesium) Magnesium No Notes: Memori a Oxide 8- (Same as: l 22:54: Mag-Ox Vin 00 400) Magnesium oxide [id number] g elemental magnesium Dose=____m g magnesium oxide (___mg elemental magnesium) Magnesium No Notes: Memori a Oxide 8- (Same as: l 22:54: Mag-Ox Vin 00 400) Magnesium oxide [id number] g elemental magnesium Dose=____m g magnesium oxide (___mg elemental magnesium) Magnesium No Notes: Memori a Oxide 8-05 (Same as: l 22:54: Mag-Ox [place] 00 400) Magnesium oxide [id number] g elemental magnesium Dose=____m g magnesium oxide (___mg elemental magnesium) Coreg No Notes: Memoria 8-05 Give with l 02:00: food. Vin (Same As: Coreg) Coreg No Notes: Memoria 8-05 Give with l 02:00: food. Vin (Same As: Coreg) Coreg No Notes: Memoria 8-05 Give with l 02:00: food. [place] (Same As: Coreg) Coreg No Notes: Memoria 8-05 Give with l 02:00: food. Vin 00 (Same As: [place]) Buspar No Notes: Memoria 8-04 (Same As: l 22:00: BuSpar) Vin 00 Buspar No Notes: Memoria 8-04 (Same As: l 22:00: BuSpar) [place] 00 Buspar No Notes: Memoria 8-04 (Same As: l 22:00: BuSpar) Vin 00 Buspar No Notes: Memoria 8-04 (Same As: l 22:00: BuSpar) Vin Fentanyl No Notes: Memoria 8-04 (Same as: l 21:06: Sublimaze) [place] Preservati ve free. Fentanyl No Notes: Memoria 8-04 (Same as: l 21:06: Sublimaze) Vin 00 Preservati ve free. Fentanyl No Notes: Memoria 8-04 (Same as: l 21:06: Sublimaze) Vin 00 Preservati ve free. Fentanyl No Notes: Memoria 8-04 (Same as: l 21:06: Sublimaze) [place] 00 Preservati ve free. Norvasc No Notes: Memoria 8-04 (Same as: l 16:47: Norvasc) Vin 00 Norvasc No Notes: Memoria 8-04 (Same as: l 16:47: Norvasc) [place] 00 Norvasc No Notes: [facility]oria 8-04 (Same [...] 8-04 (Same as: l Tablet 14:00: Lasix) October cause GI upset. Give with [...] Zoloft) pantoprazol No Notes: For Memoria e 01-22 [...] 8-04 (Same as: l Tablet 14:00: Lasix) October cause GI upset. Give with [...] 8-04 not exceed l 09:44: 4 gm/day. [place] 00 (Same as: Tylenol) Fentanyl No Notes: Memoria 8-04 (Same as: l 09:44: Sublimaze) Vin 00 Preservati ve free. Fentanyl No Notes: Memoria 8-04 (Same as: l 04:46: Sublimaze) [place] 00 Preservati ve free. Fentanyl No Notes: Memoria 8-04 (Same as: l 04:46: Sublimaze) Vin 00 Preservati ve free. Fentanyl No Notes: Memoria 8-04 (Same as: l 04:46: Sublimaze) Vin 00 Preservati ve free. Fentanyl No Notes: Memoria 8-04 (Same as: l 04:46: Sublimaze) [place] 00 Preservati ve free. Fentanyl No Notes: Memoria 8-04 (Same as: l 02:01: Sublimaze) [place] 00 Preservati ve free. Fentanyl No Notes: Memoria 8-04 (Same as: l 02:01: Sublimaze) [place] 00 Preservati ve free. Fentanyl No Notes: [...] Memoria 8-04 Give with l 02:00: food. [place] 00 (Same As: Coreg) Saline No Notes: Memoria Flush 0.9% 8-04 Same as: l 02:00: BD Vin 00 Posiflush Sterile Valproate No 1,000 mg, Mem oria 8-04 2 tab, l 02:00: Route: PO, Vin 00 Drug form: ERTAB, Bedtime, Start date: 01/21/21 21:00:00 CDT, Duration: 30 day, Stop date: 02/19/21 21:00:00 CDT, 0 Coreg No Notes: Memoria 8-04 Give with l 02:00: food. [place] 00 (Same As: Coreg) Saline No Notes: [facility]oria Flush 0.9% 8-04 Same as: l 02:00: BD [place] 00 Posiflush Sterile Valproate No 1,000 mg, Mem oria 8-04 2 tab, l 02:00: Route: PO, [place] 00 Drug form: ERTAB, Bedtime, Start date: 01/21/21 21:00:00 CDT, Duration: 30 day, Stop date: 02/19/21 21:00:00 CDT, 0 heparin No Notes: Memoria 8-03 porcine l 21:00: heparin Vin heparin No Notes: Memoria 8-03 porcine l 21:00: heparin [place] heparin No Notes: Memoria 8-03 porcine l 21:00: heparin [place] heparin No Notes: Memoria 8-03 porcine l 21:00: heparin [place] Dextrose No 12.5 gm, Memor ia 50% Syringe 8-03 25 mL, l (D50W) 20:01: Route: Vin 00 IVP, Drug Form: INJ, Dosing Weight 74.5, kg, PRN, PRN Blood Glucose Results, Start date: 01/21/21 15:01:00 CDT, Duration: 30 day, Stop date: 02/20/21 15:00:00 CDT, 0 Glucagon 2020-0 No 1 mg, Memoria 8- Route: IM, l 20:01: Drug form: Vin 00 PDR/INJ, PRN, Dosing Weight 74.5, kg, PRN Blood Glucose Results, Start date: 01/21/21 15:01:00 CDT, Duration: 30 day, Stop date: 02/20/21 15:00:00 CDT, 0 Insulin 2020-0 No Notes: Memoria Lispro 8- (Same as: l 20:01: Humalog) [place] 00 Roll in palms of hands gently; Do not shake vigorously . WASTE: F/P - Black; E - Municipal Trash Bin Stable for 28 days at room temperatur e. Expires in days from ____Date Dextrose 2020-0 No 12.5 gm, Memor ia 50% Syringe 8-03 25 mL, l (D50W) 20:01: Route: [place] 00 IVP, Drug Form: INJ, Dosing Weight 74.5, kg, PRN, PRN Blood Glucose Results, Start date: 01/21/21 15:01:00 CDT, Duration: 30 day, Stop date: 02/20/21 15:00:00 CDT, 0 Glucagon 2020-0 No 1 mg, Memoria 8- Route: IM, l 20:01: Drug form: Vin [...] 01-21 Route: IM, l 20:01: Drug form: [place] 00 PDR/INJ, PRN, Dosing Weight 74.5, kg, [...] 01-21 Route: IM, l 20:01: Drug form: [place] 00 PDR/INJ, PRN, Dosing Weight 74.5, kg, PRN Blood Glucose Results, Start date: 01/21/21 15:01:00 CDT, Duration: 30 day, Stop date: 02/20/21 15:00:00 CDT, 0 Insulin No Notes: Memoria Lispro 01-21 (Same as: l 20:01: Humalog) Vin 00 [...] Same as: l 200 mL 18:26: Cardene [place] (Titrate.) 00 Concentrat IV 40 mg ion: (0.2 mg /1 ml ) Cardene 40 No Notes: Memor ia mg in NS 01-21 Same as: l 200 mL 18:26: Cardene [place] (Titrate.) 00 Concentrat IV 40 mg ion: (0.2 mg /1 ml ) Cyproheptad No 4 mg, 1 Mem oria ine 01-21 tab, l 18:00: Route: PO, [place] 00 Drug form: TAB, TID, Dosing Weight 72, kg, Start date: 01/21/21 13:00:00 CDT, Duration: 30 day, Stop date: 02/20/21 9:00:00 CDT Cyproheptad 1-0 No 4 mg, 1 Mem oria ine 8-03 tab, l 18:00: Route: PO, [place] 00 Drug form: TAB, TID, Dosing Weight 72, kg, Start date: 01/21/21 13:00:00 CDT, Duration: 30 day, Stop date: 02/20/21 9:00:00 CDT Cyproheptad 1-0 No 4 mg, 1 Mem oria ine 8-03 tab, l 18:00: Route: PO, [place] 00 Drug form: TAB, TID, Dosing Weight 72, kg, Start date: 01/21/21 13:00:00 CDT, Duration: 30 day, Stop date: 02/20/21 9:00:00 CDT Cyproheptad 1-0 No 4 mg, 1 Mem oria ine 8-03 tab, l 18:00: Route: PO, [place] 00 Drug form: TAB, TID, Dosing Weight [...] Me moria 8- RT l 17:49: DOCUMENTAT [place] 00 ION (Same as: Proventil) Albuterol No Notes: SEE Me moria 8 RT l 17:49: DOCUMENTAT Vin 00 ION (Same as: Proventil) albuterol No [...] being intubated (unless the nurse is a MANAGEMENT AIDE). Same as: Diprivan Nystatin No Notes: Memoria [...] being intubated (unless the nurse is a MANAGEMENT AIDE). Same as: Diprivan Nystatin No Notes: Memoria [...] being intubated (unless the nurse is a MANAGEMENT AIDE). Same as: Diprivan Nystatin No Notes: Memoria 100 UNT/MG 8-03 (Same l Topical 17:31: as:Mycosta Herm naeem Powder 00 tin, Nilstat) For external use only. Saline No Notes: Memoria Flush 0.9% 8-03 Same as: l 17:31: BD [place] 00 Posiflush Sterile propofol No Notes: If M emoria mg/mL 8-03 Diprivan - l (Titrate.) 17:31: change Nidia nn IV 1,000 mg 00 bottle & tubing every 12 hr Per state nursing law propofol can only be given by a nurse if patient is intubated or being intubated (unless the nurse is a MANAGEMENT AIDE). Same as: Diprivan midazolam No Route: IV, Me moria (ANES) 01-21 Drug form: l 17:18: SOLN, [place] 00 ONCE, Stop date: 01/21/21 12:18:00 CDT fentaNYL 2020-0 No Route: IV, Mem oria (ANES) 01-21 Drug form: l 17:18: INJ, ONCE, [place] 00 Stop date: 01/21/21 12:18:00 CDT niCARdipine 0 No Route: IV, Memoria (ANES) 01-21 Drug form: l 17:18: INJ, ONCE, Vin Stop date: 01/21/21 12:18:00 CDT midazolam 2020-0 No Route: IV, Me moria (ANES) 01-21 Drug form: l 17:18: SOLN, [place] 00 ONCE, Stop date: 01/21/21 12:18:00 CDT fentaNYL 2020-0 No Route: IV, Mem oria (ANES) 01-21 Drug form: l 17:18: INJ, ONCE, Vin 00 Stop date: 01/21/21 12:18:00 CDT niCARdipine 0 No Route: IV, Memoria (ANES) 01-21 Drug form: l 17:18: INJ, ONCE, [place] 00 Stop date: 01/21/21 12:18:00 CDT midazolam 2020-0 No Route: IV, Me moria (ANES) 01-21 Drug form: l 17:18: SOLN, [place] 00 ONCE, Stop date: 01/21/21 12:18:00 CDT fentaNYL 2020-0 No Route: IV, Mem oria (ANES) 01-21 Drug form: l 17:18: INJ, ONCE, Vin Stop date: 01/21/21 12:18:00 CDT niCARdipine 2020-0 [...] ONCE, Stop date: 01/21/21 12:18:00 CDT niCARdipine 0 No Route: IV, Memoria (ANES) 01-21 Drug form: l 17:18: INJ, ONCE, Stop date: 01/21/21 12:18:00 CDT glycopyrrol 0 [...] 2020-0 No Route: IV, Mem oria (ANES) 8-03 Drug form: l 14:51: INJ, ONCE, Stop [...] ONCE, Stop date: 01/21/21 9:51:00 CDT propofol 202-0 No Route: IV, Mem oria (ANES) 10 [...] Stop date: 01/21/21 10:20:00 CDT Isolyte S 0 No Route: IV, [...] 0:00:00 CDT, 0 Fentanyl No Notes: Memoria 8- (Same as: l 13:16: Sublimaze) Preservati ve [...] janice 8 (Same as: l 13:16: Mylicon, [place] 00 Phazyme, Genasyme) Hydralazine No Notes: Mendoza [...] free. Hydromorpho No Notes: Mendoza janice ne 8- Same as l 13:16: Dilaudid Flumazenil No Notes: Memor ia 8 (Same as: l 13:16: Romazicon) Naloxone No Notes: Memoria 01-21 Same as l 13:16: Narcan Vin 00 Albuterol No Notes: SEE Me moria 0.83 MG/ML 01-21 RT l Inhalant 13:16: DOCUMENTAT Her braden Solution 00 ION (Same as: Proventil) Ondansetron No Notes: Mendoza janice 8 (Same as: l 13:16: Zofran) MEDICATION WASTE Product Size: 4 mg Product Wasted: ___ mg Promethazin No Notes: Do M emoria e 01-21 not give l 13:16: IV push. (Same as: Phenergan) Simethicone No Notes: Mendoza janice 8- (Same as: l 13:16: Mylicon, [place] Phazyme, Genasyme) Hydralazine No Notes: Mendoza janice [...] free. Hydromorpho No Notes: Mendoza janice ne 8- Same as l 13:16: Dilaudid Flumazenil No Notes: Memor ia 8 (Same as: l 13:16: Romazicon) Naloxone No [...] Promethazin No Notes: Do M emoria e - not give l 13:16: IV push. [place] 00 (Same as: Phenergan) Simethicone No Notes: [...] Wasted: ___ mg Promethazin No Notes: Do Deepali hickey e 01-21 not give l 13:16: IV push. (Same as: Phenergan) Simethicone No Notes: Mendoza janice 01-21 (Same as: l 13:16: Mylicon, [place] 00 Phazyme, Genasyme) calcium No See Memoria [...] C-selenium- zinc (Dialyvite) 3 MG tablet linaGLIPtin 2021-0 Yes 5mg QD Take 5 mg U T (TRADJENTA 7-16 by mouth 1 Hea lth PO) 13:03: (one) time 11 each day. Xifaxan 550 1-0 Yes 1{tbl} QD Take 1 UT MG tablet 7-07 tablet by Healt h 00:00: mouth 1 00 (one) time each day. rifaximin 1-0 Yes 550 mg = 1 Me moria 550 MG Oral 7-06 tab, PO, l Tablet 18:46: TID, # 42 Jake n [XIFAXAN] 00 tab, 2 Refill(s), Pharmacy: [facility], 154.94, cm, 12/24/20 10:43:00 CDT, Height, 71.818, kg, 12/24/20 10:43:00 CDT, Weight rifaximin 1-0 Yes 550 mg = 1 Me moria 550 MG Oral 7-06 tab, PO, l Tablet 18:46: TID, # 42 Jake n [XIFAXAN] 00 tab, 2 Refill(s), Pharmacy: [facility], 154.94, cm, 12/24/20 10:43:00 CDT, Height, 71.818, kg, 12/24/20 10:43:00 CDT, Weight rifaximin 1-0 Yes 550 mg = 1 Me moria 550 MG Oral 7-06 tab, PO, l Tablet 18:46: TID, # 42 Jake n [XIFAXAN] 00 tab, 2 Refill(s), Pharmacy: [facility], 154.94, cm, 12/24/20 10:43:00 CDT, Height, 71.818, kg, 12/24/20 10:43:00 CDT, Weight rifaximin 1-0 Yes 550 mg = 1 Me moria 550 MG Oral 7-06 tab, PO, l Tablet 18:46: TID, # 42 Jake n [XIFAXAN] 00 tab, 2 Refill(s), Pharmacy: [facility], 154.94, cm, 12/24/20 10:43:00 CDT, Height, 71.818, kg, 12/24/20 10:43:00 CDT, Weight {2 (480 ML 2020-0 Yes See Memoria Magnesium 7-06 Instructio l Sulfate 18:12: ns, take Jake n 0.0277 00 as MEQ/ML / directed, potassium give sulfate clenpiq if 0.0374 not MEQ/ML / covered by sodium insurance, sulfate # 1 ea, 0 0.257 Refill(s), MEQ/ML Oral Pharmacy: Solution) } [facility] [Suprep 808, Bowel Prep 154.94, Kit] [...] 0.257 Refill(s), MEQ/ML Oral Pharmacy: Solution) } [facility] [Suprep 808, Bowel Prep 154.94, Kit] [...] 0.257 Refill(s), MEQ/ML Oral Pharmacy: Solution) } [facility] [Suprep 808, Bowel Prep 154.94, Kit] [...] 0 MG/ML / Refill(s), picosulfate Pharmacy: [facility] 0.0625 Pharmacy MG/ML Oral 808, Solution 154.94, [Clenpiq] cm, 12/24/20 10:43:00 CDT, Height, 71.818, kg, 12/24/20 10:43:00 CDT, Weight cyproheptad 1-0 Yes 4 mg = 1 Me moria ine 4 mg 7-06 tab, PO, l oral tablet 18:10: TID, X 30 H ermann 00 day, # 90 tab, 3 Refill(s), Pharmacy: [facility], 154.94, cm, 12/24/20 10:43:00 CDT, Height, 71.818, kg, 12/24/20 10:43:00 CDT, Weight cyproheptad 1-0 Yes 4 mg = 1 Me moria ine 4 mg 7-06 tab, PO, l oral tablet 18:10: TID, X 30 H ermann 00 day, # 90 tab, 3 Refill(s), Pharmacy: [facility], 154.94, cm, 12/24/20 10:43:00 CDT, Height, 71.818, kg, 12/24/20 10:43:00 CDT, Weight cyproheptad 1-0 Yes 4 mg = 1 Me moria ine 4 mg 7-06 tab, PO, l oral tablet 18:10: TID, X 30 H ermann 00 day, # 90 tab, 3 Refill(s), Pharmacy: [facility], 154.94, cm, 12/24/20 10:43:00 CDT, Height, 71.818, kg, 12/24/20 10:43:00 CDT, Weight cyproheptad 1-0 Yes 4 mg = 1 Me moria ine 4 mg 7-06 tab, PO, l oral tablet 18:10: TID, X 30 H ermann 00 day, # 90 tab, 3 Refill(s), Pharmacy: [facility], 154.94, cm, 12/24/20 10:43:00 CDT, Height, 71.818, kg, 12/24/20 10:43:00 CDT, Weight Zinc Yes 140 mg, Memoria 7-06 PO, Daily, l 15:54: 0 Refill(s) Elderberry Yes 0 Memoria preparation 7-06 Refill(s) l 15:54: Zinc 0 Yes 140 mg, Memoria 7-06 PO, Daily, l 15:54: 0 Refill(s) Elderberry Yes 0 Memoria preparation 7-06 Refill(s) l 15:54: Zinc Yes 140 mg, Memoria 7-06 PO, Daily, l 15:54: 0 Refill(s) Elderberry Yes 0 Memoria preparation 7-06 Refill(s) l 15:54: Zinc Yes 140 mg, Memoria 7-06 PO, [...] UT (Desyrel) 6-19 mg by [facility] 100 MG 00:00: mouth at tablet 00 night if needed. NEEDED sertraline 0 Yes 50mg Take 50 mg U T (Zoloft) 50 6-19 by mouth 1 He alth MG tablet 00:00: (one) time 00 each day in the morning. gabapentin 2020-0 Yes 100mg QD Take 100 UT (Neurontin) 6-19 mg by [facility] 100 MG 00:00: mouth 1 capsule 00 (one) time each day. divalproex 2020-0 Yes 500mg Q.5D Take 500 UT (Depakote 6-19 mg by [facility] ER) 500 MG 00:00: mouth 2 24 hr 00 (two) tablet times a day. busPIRone 0 Yes 7.5mg Q.5D Take 7.5 UT (Buspar) 6-19 mg by [facility] 7.5 MG 00:00: mouth 2 tablet 00 (two) times a day. buPROPion Yes 300mg Take 300 UT XL 6-19 mg by [facility] (Wellbutrin 00:00: mouth 1 XL) 300 MG 00 (one) time 24 hr each day tablet in the morning. busPIRone Yes 7.5mg Take 7.5 Uni vers 7.5 mg 6-19 mg by ity of tablet 00:00: mouth 2 [place] 00 (two) Medical times Branch daily. metoprolol Yes 1{tbl} QD Take 1 UT succinate 5-25 tablet by [facility] h XL 00:00: mouth 1 (Toprol-XL) 00 (one) time 50 MG 24 hr each day. tablet ascorbic Yes 500mg [id number] Take 500 UT acid 5-15 [id number] mg by [facility] (Vitamin C) 00:00: 3D mouth 3 500 MG 00 (three) tablet times a day. sucralfate Yes 1{tbl} QD Take 1 UT (Carafate) 5-10 tablet by [facility] th 1 g tablet 00:00: mouth 1 00 (one) time each day. zinc 2020-0 Yes DAILY [facility] sulfate 50 5-10 ity of mg zinc 00:00: [place] (220 mg) 00 Medical capsule Branch ondansetron 2020-0 Yes 4mg Take 4 mg U nivers 4 mg 4-13 by mouth [facility] [place] 00:00[place] tablet 00 [place] [facility] GLIPIZIDE 5 Yes [id number] TAKE 1 [facility] mg tablet 4-06 TABLET BY ity o f 00:00: MOUTH [place] 00 TWICE Medical DAILY Branch BEFORE BREAKFAST AND BEFORE SUPPER doxazosin 4 2020- No 4mg Take 4 mg [facility] mg tablet 06-27 by mouth 2 ity of 10:52: 00:00 (two) [place] 22 :00 times Medical daily. Branch doxazosin 4 Yes 4mg Take 1 Univ ers mg tablet -07 tablet by ity o f 00:00: mouth at [place] 00 bedtime. Medical Branch doxazosin 4 Yes 4mg Take 1 [facility] mg tablet - tablet by ity o f 00:00: mouth at [place] 00 bedtime. Medical Branch glipiZIDE 5 2019-06- No [id number] 5mg Take 1 [facility] mg tablet 07-01-06 tablet by ity of 00:00: 00:00 mouth 2 [place] 00 :00 (two) Medical times Branch daily before breakfast and dinner. metoclopram 2019- Yes 1{tbl} Take 1 Un lori gadiel [...] by ity of tablet 00:00: mouth at [place] 00 bedtime. Medical Branch traZODone 0 Yes 150mg Take 150 [facility] vers 150 mg 8-13 mg by ity of tablet 00:00: mouth at [place] 00 bedtime. Medical Branch erythromyci 2020- No [id number] .5[in_u Place 0.5 Univers n 5 mg/gram 01-14 s] Inches in it y of (0.5 %) 00:00: 00:00 left eye 3 Baljinder as ophthalmic 00 :00 (three) Medica l ointment times Branch daily. Continue until you follow up with eye doctor. diphenhydrA No 50mg Take 1 Uni vers MINE [...] l 59 Center hydrALAZINE 2017-0 Yes 100mg Q.[id number] Take [address] [facility] (APRESOLINE 7-20 [id number] mg by L ukes ) 100 MG 15:20: 3D mouth 3 Medica l tablet 59 (three) Center times daily. magnesium 2017-0 Yes 400mg QD Take [address] [facility] oxide 7-20 mg by [facility] (MAG-OX) 15:20: mouth Medical 400 mg 59 daily. Center tablet metoclopram 2017-0 Yes 10mg Q.[id number] Take [address] [facility] gadiel HCl 7-20 [id number] by mouth 3 [facility] (REGLAN) 10 15:20: [...] l 59 Center hydrALAZINE 2017-0 Yes 100mg Q.[id number] Take [address] [facility] (APRESOLINE 7-20 [id number] mg by L ukes ) 100 MG 15:20: 3D mouth 3 Medica l tablet 59 (three) Center times daily. magnesium 2017-0 Yes 400mg QD Take [address] [facility] oxide 7-20 mg by [facility] (MAG-OX) 15:20: mouth Medical 400 mg 59 daily. Center tablet metoclopram 2017-0 Yes 10mg Q.87633733 Take [address] [facility] gadiel HCl 7-20 [id number] by mouth 3 [facility] (REGLAN) 10 15:20: [...] l 59 Center hydrALAZINE 2017 Yes 100mg Q.[id number] Take [address] [facility] (APRESOLINE 7-20 [id number] mg by L ukes ) 100 MG 15:20: 3D mouth 3 Medica l tablet 59 (three) Center times daily. magnesium 2017 Yes 400mg QD Take [address] [facility] oxide 7-20 mg by [facility] (MAG-OX) 15:20: mouth Medical 400 mg 59 daily. Center tablet metoclopram 2017- Yes 10mg Q.05568502 Take [address] [facility] gadiel HCl 7-20 [id number] by mouth 3 [facility] (REGLAN) 10 15:20: [...] l 59 Center hydrALAZINE 2017-0 Yes 100mg Q.[id number] Take [address] [facility] (APRESOLINE 7-20 [id number] mg by L ukes ) 100 MG 15:20: 3D mouth 3 Medica l tablet 59 (three) Center times daily. magnesium 2017-0 Yes 400mg QD Take [address] [facility] oxide 7-20 mg by [facility] (MAG-OX) 15:20: mouth Medical 400 mg 59 daily. Center tablet metoclopram 2017-0 Yes 10mg Q.92224809 Take [address] [facility] gadiel HCl 7-20 [id number] by mouth 3 [facility] (REGLAN) 10 15:20: [...] l 59 Center hydrALAZINE 2017-0 Yes 100mg Q.[id number] Take [address] [facility] (APRESOLINE 7-20 [id number] mg by L ukes ) 100 MG 15:20: 3D mouth 3 Medica l tablet 59 (three) Center times daily. magnesium 2017-0 Yes 400mg QD Take [address] [facility] oxide 7-20 mg by [facility] (MAG-OX) 15:20: mouth Medical 400 mg 59 daily. Center tablet metoclopram 2017-0 Yes 10mg Q.85606623 Take [address] [facility] gadiel HCl 7-20 [id number] by mouth 3 [facility] (REGLAN) 10 15:20: [...] l 59 Center hydrALAZINE 2017-0 Yes 100mg Q.[id number] Take [address] [facility] (APRESOLINE 7-20 [id number] mg by L es ) 100 MG 15:20: 3D mouth 3 Medica l tablet 59 (three) Center times daily. magnesium 2017-0 Yes 400mg QD Take [address] [facility] [address] oxide 7-20 mg by [facility] (MAG-OX) 15:20: mouth Medical 400 mg 59 daily. Center tablet metoclopram 2017-0 Yes 10mg Q.57182310 Take [address] [facility] gadiel HCl 7-20 [id number] by mouth 3 [facility] (REGLAN) 10 15:20: [...] l 59 Center hydrALAZINE 2017-0 Yes 100mg Q.56219217 Take [address] [facility] (APRESOLINE 7-20 [id number] mg by L es ) 100 MG 15:20: 3D mouth 3 Medica l tablet 59 (three) Center times daily. magnesium 2017-0 Yes 400mg QD Take [address] [facility] [address] oxide 7-20 mg by [facility] (MAG-OX) 15:20: mouth Medical 400 mg 59 daily. Center tablet metoclopram 2017-0 Yes 10mg Q.60735071 Take [address] [facility] gadiel HCl 7-20 [id number] by mouth 3 [facility] (REGLAN) 10 15:20: [...] l 59 Center hydrALAZINE 2017-0 Yes 100mg Q.[id number] Take [address] [facility] (APRESOLINE 7-20 [id number] mg by L ukes ) 100 MG 15:20: 3D mouth 3 Medica l tablet 59 (three) Center times daily. magnesium 2017-0 Yes 400mg QD Take [address] [facility] [address] oxide 7-20 mg by [facility] (MAG-OX) 15:20: mouth Medical 400 mg 59 daily. Center tablet metoclopram 2017-0 Yes 10mg Q.56308781 Take [address] [facility] gadiel HCl 7-20 [id number] by mouth 3 [facility] (REGLAN) 10 15:20: [...] l 59 Center hydrALAZINE 2017-0 Yes 100mg Q.45910017 Take [address] [facility] (APRESOLINE 7-20 [id number] mg by L ukes ) 100 MG 15:20: 3D mouth 3 Medica l tablet 59 (three) Center times daily. magnesium 2017-0 Yes 400mg QD Take [address] [facility] [address] oxide 7-20 mg by [facility] (MAG-OX) 15:20: mouth Medical 400 mg 59 daily. Center tablet metoclopram 2017-0 Yes 10mg Q.83733765 Take [address] [facility] gadiel HCl 7-20 [id number] by mouth 3 [facility] (REGLAN) 10 15:20: [...] l 59 Center hydrALAZINE 2017-0 Yes 100mg Q.[id number] Take [address] [facility] [address] (APRESOLINE 7-20 [id number] mg by L ukes ) 100 MG 15:20: 3D mouth 3 Medica l tablet 59 (three) Center times daily. magnesium 2017-0 Yes 400mg QD Take [address] [facility] [address] oxide 7-20 mg by [facility] (MAG-OX) 15:20: mouth Medical 400 mg 59 daily. Center tablet metoclopram 2017-0 Yes 10mg Q.90758017 Take [address] [facility] gadiel HCl 7-20 [id number] by mouth 3 [facility] (REGLAN) 10 15:20: [...] l 59 Center hydrALAZINE 2017-0 Yes 100mg Q.[id number] Take [address] [facility] [address] (APRESOLINE 7-20 [id number] mg by L ukes ) 100 MG 15:20: 3D mouth 3 Medica l tablet 59 (three) Center times daily. magnesium 2017-0 Yes 400mg QD Take [address] [facility] [address] oxide 7-20 mg by [facility] (MAG-OX) 15:20: mouth Medical 400 mg 59 daily. Center tablet metoclopram 2017-0 Yes 10mg Q.35343285 Take [address] [facility] gadiel HCl 7-20 [id number] by mouth 3 [facility] (REGLAN) 10 15:20: [...] l 59 Center hydrALAZINE 2017-0 Yes 100mg Q.[id number] Take [address] [facility] (APRESOLINE 7-20 [id number] mg by L ukes ) 100 MG 15:20: 3D mouth 3 Medica l tablet 59 (three) Center times daily. magnesium 2017-0 Yes 400mg QD Take [address] [facility] [address] oxide 7-20 mg by [facility] (MAG-OX) 15:20: mouth Medical 400 mg 59 daily. Center tablet metoclopram 2017-0 Yes 10mg Q.35561653 Take [address] [facility] gadiel HCl 7-20 [id number] by mouth 3 [facility] (REGLAN) 10 15:20: [...] l 59 Center hydrALAZINE 2017-0 Yes 100mg Q.[id number] Take [address] [facility] [address] (APRESOLINE 7-20 [id number] mg by L ukes ) 100 MG 15:20: 3D mouth 3 Medica l tablet 59 (three) Center times daily. magnesium 2017-0 Yes 400mg QD Take [address] [facility] [address] oxide 7-20 mg by [facility] (MAG-OX) 15:20: mouth Medical 400 mg 59 daily. Center tablet metoclopram 2017-0 Yes 10mg Q.08341690 Take [address] [facility] gadiel HCl 7-20 [id number] by mouth 3 [facility] (REGLAN) 10 15:20: [...] l 59 Center hydrALAZINE 2017-0 Yes 100mg Q.[id number] Take [address] [facility] [address] (APRESOLINE 7-20 [id number] mg by L ukes ) 100 MG 15:20: 3D mouth 3 Medica l tablet 59 (three) Center times daily. magnesium 2017-0 Yes 400mg QD Take [address] [facility] [address] oxide 7-20 mg by [facility] (MAG-OX) 15:20: mouth Medical 400 mg 59 daily. Center tablet metoclopram 2017-0 Yes 10mg Q.05430670 Take [address] [facility] gadiel HCl 7-20 [id number] by mouth 3 [facility] (REGLAN) 10 15:20: [...] [facility] (DEPAKOTE) 7-20 associated mg by Kenyatat kes 500 MG EC 15:20: with mouth [...] l 59 Center hydrALAZINE 2017-0 Yes 100mg Q.[id number] Take [address] [facility] [address] (APRESOLINE 7-20 [id number] mg by L ukes ) 100 MG 15:20: 3D mouth 3 Medica l tablet 59 (three) Center times daily. magnesium 2017-0 Yes 400mg QD Take [address] [facility] [address] oxide 7-20 mg by [facility] (MAG-OX) 15:20: mouth Medical 400 mg 59 daily. Center tablet metoclopram 2017-0 Yes 10mg Q.23494473 Take [address] [facility] gadiel HCl 7-20 [id number] by mouth 3 [facility] (REGLAN) 10 15:20: [...] l 59 Center hydrALAZINE 2017-0 Yes 100mg Q.[id number] Take [address] [facility] [address] (APRESOLINE 7-20 [id number] mg by L ukes ) 100 MG 15:20: 3D mouth 3 Medica l tablet 59 (three) Center times daily. magnesium 2017-0 Yes 400mg QD Take [address] [facility] [address] oxide 7-20 mg by [facility] (MAG-OX) 15:20: mouth Medical 400 mg 59 daily. Center tablet metoclopram 2017 Yes 10mg Q.[id number] Take [address] [facility] gadiel HCl 7-20 [id number] by mouth 3 [facility] (REGLAN) 10 15:20: [...] 3 Center mg/mL (three) injection months. insulin 2017 Yes 5U QD Inject [address] [facility] glargine 7-20 Units [facility] (LANTUS) 00:00: subcutaneo Med ical 100 unit/mL 00 usly every Ce nter injection morning Use as directed . insulin 20170 Yes 5U QD Inject [address] [facility] glargine 7-20 Units [facility] (LANTUS) 00:00: subcutaneo Med ical 100 unit/mL 00 usly every Ce nter injection morning Use as directed . insulin 20170 Yes 5U QD Inject [address] [facility] [...] Vin 00 30 tab, 0 Refill(s), Pharmacy: [facility] Furosemide 0 Yes 40 mg = 1 Me moria 40 MG Oral 2-09 tab, PO, l Tablet 15:07: Daily, # [place] 00 30 tab, 0 Refill(s), Pharmacy: [facility] Furosemide 0 Yes 40 mg = 1 Me moria 40 MG Oral 2-09 tab, PO, l Tablet 15:07: Daily, # [place] 00 30 tab, 0 Refill(s), Pharmacy: [facility] Furosemide 0 Yes 40 mg = 1 Me moria 40 MG Oral 2-09 tab, PO, l Tablet 15:07: Daily, # [place] 00 30 tab, 0 Refill(s), Pharmacy: [facility] Bumex 2017-0 No 0.5 mg, Memoria 2- Route: PO, l 15:00: Drug form: Vin 00 TAB, Daily, Dosing Weight 92.273, kg, Start date: 07/30/16 9:00:00 COMMUTATOR ASSEMBLER, Duration: 30 day, Stop date: 08/28/16 9:00:00 COMMUTATOR ASSEM[employer]ER Bumex 2017-0 No 0.5 mg, Memoria 2- Route: PO, l 15:00: Drug form: Vin 00 TAB, Daily, Dosing Weight 92.273, kg, Start date: 07/30/16 9:00:00 COMMUTATOR ASSEMBLER, Duration: 30 day, Stop date: 08/28/16 9:00:00 COMMUTATOR ASSEMBLER Bumex 2017-0 No 0.5 mg, Memoria 2-09 Route: PO, l 15:00: Drug form: Vin 00 TAB, Daily, Dosing Weight 92.273, kg, Start date: 07/30/16 9:00:00 COMMUTATOR ASSEMBLER, Duration: 30 day, Stop date: 08/28/16 9:00:00 COMMUTATOR ASSEMBLER Bumex 2017- No 0.5 mg, Memoria 2-09 Route: PO, l 15:00: Drug form: [place] 00 TAB, Daily, Dosing Weight 92.273, kg, Start date: 07/30/16 9:00:00 COMMUTATOR ASSEMBLER, Duration: 30 day, Stop date: 08/28/16 9:00:00 COMMUTATOR ASSEMBLER Lasix No Notes: Memoria 2-08 (Same as: l 20:05: Lasix) May [place] 00 cause GI upset. Give with food or milk. Lasix No Notes: Memoria 2-08 (Same as: l 20:05: Lasix) May [place] 00 cause GI upset. Give with food or milk. Lasix No Notes: Memoria 2-08 (Same as: l 20:05: Lasix) May [place] 00 cause GI upset. Give with food or milk. Lasix No Notes: Memoria 2-08 (Same as: l 20:05: Lasix) May Vin 00 cause GI upset. Give with food or milk. Hydralazine No Notes: Mendoza janice 2-08 (Same as: l 06:05: Apresoline Vin 00 ) Push over 5 minutes Hydralazine 2016-0 No Notes: Mendoza janice 2-08 (Same as: l 06:05: Apresoline [place] 00 ) Push over 5 minutes Hydralazine No Notes: Mendoza janice 2-08 (Same as: l 06:05: Apresoline Vin 00 ) Push over 5 minutes Hydralazine 2016- No Notes: Mendoza janice 2-08 (Same as: l 06:05: Apresoline Vin 00 ) Push over 5 minutes sodium 2017-0 No 1,000 mL, Memori a chloride 2-05 Rate: 125 l 0.9% 1000 18:26: ml/hr, Jake n ml INJ 00 Infuse 1,000 mL over: 8 hr, Route: IV, Dosing Weight 92.273 kg, Total Volume: 1,000, Start date: 07/26/16 12:26:00 COMMUTATOR ASSEMBLER, Duration: 30 day, Stop date: 08/25/16 12:25:00 COMMUTATOR ASSEMBLER sodium 2017-0 No 1,000 mL, Memori a chloride 2-05 Rate: 125 l 0.9% 1000 18:26: ml/hr, Jake n ml INJ 00 Infuse 1,000 mL over: 8 hr, Route: IV, Dosing Weight 92.273 kg, Total Volume: 1,000, Start date: 07/26/16 12:26:00 COMMUTATOR ASSEMBLER, Duration: 30 day, Stop date: 08/25/16 12:25:00 COMMUTATOR ASSEMBLER sodium 2017-0 No 1,000 mL, Memori a chloride 2-05 Rate: 125 l 0.9% 1000 18:26: ml/hr, Jake n ml INJ 00 Infuse 1,000 mL over: 8 hr, Route: IV, Dosing Weight 92.273 kg, Total Volume: 1,000, Start date: 07/26/16 12:26:00 COMMUTATOR ASSEMBLER, Duration: 30 day, Stop date: 08/25/16 12:25:00 COMMUTATOR ASSEMBLER sodium 2017-0 No 1,000 mL, Memori a chloride 2-05 Rate: 125 l 0.9% 1000 18:26: ml/hr, Jake n ml INJ 00 Infuse 1,000 mL over: 8 hr, Route: IV, Dosing Weight 92.273 kg, Total Volume: 1,000, Start date: 07/26/16 12:26:00 COMMUTATOR ASSEMBLER, Duration: 30 day, Stop date: 08/25/16 12:25:00 COMMUTATOR ASSEMBLER Sodium 2017-0 No 500 mL, Memoria Chloride 2-05 500 ml/hr, l 0.154 13:30: Infuse Vin MEQ/ML 00 Over: 1 Injectable hr, Route: Solution IV, 500, Drug form: INJ, ONCE, Priority: STAT, Dosing Weight 92.273 kg, Start date: 07/26/16 7:30:00 COMMUTATOR ASSEMBLER, Duration: 1 doses or times, Stop date: 07/26/16 7:30:00 COMMUTATOR ASSEMBLER Sodium 2017-0 No 500 mL, Memoria Chloride 2-05 500 ml/hr, l 0.154 13:30: Infuse [place] MEQ/ML 00 Over: 1 Injectable hr, Route: Solution IV, 500, Drug form: INJ, ONCE, Priority: STAT, Dosing Weight 92.273 kg, Start date: 07/26/16 7:30:00 COMMUTATOR ASSEMBLER, Duration: 1 doses or times, Stop date: 07/26/16 7:30:00 COMMUTATOR ASSEMBLER Sodium 2017-0 No 500 mL, Memoria Chloride 2-05 500 ml/hr, l 0.154 13:30: Infuse [place] MEQ/ML 00 Over: 1 Injectable hr, Route: Solution IV, 500, Drug form: INJ, ONCE, Priority: STAT, Dosing Weight 92.273 kg, Start date: 07/26/16 7:30:00 COMMUTATOR ASSEMBLER, Duration: 1 doses or times, Stop date: 07/26/16 7:30:00 COMMUTATOR ASSEMBLER Sodium 2017-0 No 500 mL, Memoria Chloride 2-05 500 ml/hr, l 0.154 13:30: Infuse [place] MEQ/ML 00 Over: 1 Injectable hr, Route: Solution IV, 500, Drug form: INJ, ONCE, Priority: STAT, Dosing Weight 92.273 kg, Start date: 07/26/16 7:30:00 COMMUTATOR ASSEMBLER, Duration: 1 doses or times, Stop date: 07/26/16 7:30:00 COMMUTATOR ASSEMBLER Insulin 2017-0 No 60 units) Mendoza janice regular 2-04 WASTE: F/P l 08:39: - Black; E [place] 00 - Municipal Trash Bin Stable for 28 days at room temperatur e Expires in days from ____Date Insulin 2017-0 No 60 units) Mendoza janice regular 2-04 WASTE: F/P l 08:39: - Black; E [place] 00 - Municipal Trash Bin Stable for [...] Roll in l Human 07:31: palms of [place] 00 hands gently; Do not shake vigorously [...] Roll in l Human 07:31: palms of [place] 00 hands gently; Do not shake vigorously [...] Roll in l Human 05:42: palms of [place] 00 hands gently; Do not shake vigorously [...] Roll in l Human 03:28: palms of [place] 00 hands gently; Do not shake vigorously [...] sodium 2-04 (Same as: l 03:00: Depakote [place] 00 ER) Once daily dosing; indicated for migraines. Divalproex sodium extended-r elease tab. Do not chew or crush. "Do Not Crush" atorvastati No Notes: Mendoza janice n 2-04 (Same as: l 03:00: Lipitor) divalproex No Notes: Memor ia sodium 2-04 (Same as: l 03:00: Depakote [place] 00 ER) Once daily dosing; indicated for migraines. Divalproex sodium extended-r elease tab. Do not chew or crush. "Do Not Crush" atorvastati No Notes: Mendoza janice n 2-04 (Same as: l 03:00: Lipitor) Vin 00 divalproex No Notes: Memor ia sodium 2-04 (Same as: l 03:00: Depakote [place] 00 ER) Once daily dosing; indicated for migraines. Divalproex sodium extended-r elease tab. Do not chew or crush. "Do Not Crush" Lasix No Notes: Memoria 2-03 (Same as: l 22:00: Lasix) [place] 00 MEDICATION WASTE Product Size: 40 mg Product Wasted: ___ mg Lasix No Notes: Memoria 2-03 (Same as: l 22:00: Lasix) [place] 00 MEDICATION WASTE Product Size: 40 mg [...] janice 2-03 acetaminop l 21:52: hen = [place] 4000mg/day (4 gm/day). (Same as: Tylenol) Bupropion No 150 mg, 1 Mem oria 2-03 tab, l 15:00: Route: PO, Vin 00 Drug form: ERTAB, Daily, Dosing Weight 92.273, kg, Start date: 07/24/16 9:00:00 COMMUTATOR ASSEMBLER, Duration: 30 day, Stop date: 08/22/16 9:00:00 COMMUTATOR ASSEMBLER 24 HR No Notes: Memoria Divalproex 2-03 [...] form: ERTAB, Daily, Start date: 07/24/16 9:00:00 COMMUTATOR ASSEMBLER, Duration: 30 day, Stop date: 08/22/16 9:00:00 COMMUTATOR ASSEMBLER Insulin No Notes: Memoria Glargine 2-03 Same [...] Weight 92.273, kg, Start date: 07/24/16 9:00:00 COMMUTATOR ASSEMBLER, Duration: 30 day, Stop date: 08/22/16 9:00:00 COMMUTATOR ASSEMBLER 24 HR No Notes: Memoria Divalproex 2-03 [...] Memoria 2-03 Tablet l 15:00: should not [place] 00 be chewed or crushed. (Same as: Protonix) metoprolol No 100 mg, 2 Me moria extended 2-03 tab, l release 15:00: Route: PO, Herm naeem Drug form: ERTAB, Daily, Start date: 07/24/16 9:00:00 COMMUTATOR ASSEMBLER, Duration: 30 day, Stop date: 08/22/16 9:00:00 COMMUTATOR ASSEMBLER Insulin No Notes: Memoria Glargine 2-03 Same [...] oria 2-03 tab, l 15:00: Route: PO, [place] Drug form: ERTAB, Daily, Dosing Weight 92.273, kg, Start date: 07/24/16 9:00:00 COMMUTATOR ASSEMBLER, Duration: 30 day, Stop date: 08/22/16 9:00:00 COMMUTATOR ASSEMBLER 24 HR No Notes: Memoria Divalproex 2-03 (Same as: l Sodium 500 15:00: Depakote Her braden MG Extended 00 ER) Release Tablet [Depakote] gabapentin No Notes: Memor ia 300 MG Oral 2-03 (Same as: l Capsule 15:00: Neurontin) Herm naeem Aspirin 81 No Notes: Memor ia MG Chewable 2-03 Take with l Tablet 15:00: food. [place] 00 Lasix No Notes: Memoria 2-03 (Same as: l 15:00: Lasix) [place] MEDICATION WASTE Product Size: 40 mg Product [...] form: ERTAB, Daily, Start date: 07/24/16 9:00:00 COMMUTATOR ASSEMBLER, Duration: 30 day, Stop date: 08/22/16 9:00:00 COMMUTATOR ASSEMBLER Insulin No Notes: Memoria Glargine 2-03 Same [...] oria 2-03 tab, l 15:00: Route: PO, [place] Drug form: ERTAB, Daily, Dosing Weight 92.273, kg, Start date: 07/24/16 9:00:00 COMMUTATOR ASSEMBLER, Duration: 30 day, Stop date: 08/22/16 9:00:00 COMMUTATOR ASSEMBLER 24 HR No Notes: Memoria Divalproex 2-03 [...] Memoria 2-03 (Same as: l 15:00: Lasix) [place] MEDICATION WASTE Product Size: 40 mg Product [...] form: ERTAB, Daily, Start date: 07/24/16 9:00:00 COMMUTATOR ASSEMBLER, Duration: 30 day, Stop date: 08/22/16 9:00:00 COMMUTATOR ASSEMBLER Insulin No Notes: Memoria Glargine 2-03 Same [...] Notes: Memoria 2-03 (Same l 14:50: as:MORPhin [place] 00 e Sulfate) Ondansetron No Notes: Mendoza janice 2-03 (Same as: l 14:50: Zofran) Vin 00 MEDICATION WASTE Product Size: 4 mg Product Wasted: ___ mg Morphine No Notes: Memoria 2-03 (Same l 14:50: as:MORPhin [place] 00 e Sulfate) Ondansetron No Notes: Mendoza [...] Roll in l Human 13:30: palms of [place] 00 hands gently; Do not shake vigorously [...] Memoria 2-03 Same as l 11:28: Dilaudid [place] 00 Dilaudid No Notes: Memoria 2-03 Same as l 11:28: Dilaudid [place] 00 Dilaudid No Notes: Memoria 2-03 Same as l 11:28: Dilaudid [place] 00 Insulin, No Notes: Memoria Aspart, 2-03 Roll in l Human 08:40: palms of [place] 00 hands gently; Do not shake vigorously [...] Blood Glucose Results, Start date: 07/24/16 2:40:00 COMMUTATOR ASSEMBLER, Duration: 30 day, Stop date: 08/23/16 2:39:00 COMMUTATOR ASSEMBLER Dextrose 2017-0 No 25 gm, 50 Mendoza janice 50% Syringe 2-03 mL, Route: l 08:40: IVP, Drug Vin 00 Form: INJ, Dosing Weight 92.273, kg, PRN, PRN Blood Glucose Results, Start date: 07/24/16 2:40:00 COMMUTATOR ASSEMBLER, Duration: 30 day, Stop date: 08/23/16 2:39:00 COMMUTATOR ASSEMBLER Insulin, 2017-0 No Notes: Memoria Aspart, 2-03 [...] 2-03 Route: IM, l 08:40: Drug form: [place] 00 PDR/INJ, PRN, Dosing Weight 92.273, kg, PRN Blood Glucose Results, Start date: 07/24/16 2:40:00 COMMUTATOR ASSEMBLER, Duration: 30 day, Stop date: 08/23/16 2:39:00 COMMUTATOR ASSEMBLER Dextrose 2016-0 No 25 gm, 50 Mendoza janice 50% Syringe 2-03 mL, Route: l 08:40: IVP, Drug [place] Form: INJ, Dosing Weight 92.273, kg, PRN, PRN Blood Glucose Results, Start date: 07/24/16 2:40:00 COMMUTATOR ASSEMBLER, Duration: 30 day, Stop date: 08/23/16 2:39:00 COMMUTATOR ASSEMBLER Insulin, 2017-0 No Notes: Memoria Aspart, 2-03 [...] Blood Glucose Results, Start date: 07/24/16 2:40:00 COMMUTATOR ASSEMBLER, Duration: 30 day, Stop date: 08/23/16 2:39:00 COMMUTATOR ASSEMBLER Dextrose 2016-0 No 25 gm, 50 Mendoza janice 50% Syringe 2-03 mL, Route: l 08:40: IVP, Drug Vin 00 Form: INJ, Dosing Weight 92.273, kg, PRN, PRN Blood Glucose Results, Start date: 07/24/16 2:40:00 COMMUTATOR ASSEMBLER, Duration: 30 day, Stop date: 08/23/16 2:39:00 COMMUTATOR ASSEMBLER Insulin, No Notes: Memoria Aspart, 2-03 Roll in l Human 08:40: palms of [place] 00 hands gently; Do not shake vigorously . (Same as: NovoLOG) "single patient use only" WASTE: F/P - Black; E - [place] Trash Bin Stable for 28 days at room temperatur e. Expires in days from ____Date Glucagon 2016-0 No 1 mg, Memoria 2-03 Route: IM, l 08:40: Drug form: Vin 00 PDR/INJ, PRN, Dosing Weight 92.273, kg, PRN Blood Glucose Results, Start date: 07/24/16 2:40:00 COMMUTATOR ASSEMBLER, Duration: 30 day, Stop date: 08/23/16 2:39:00 COMMUTATOR ASSEMBLER Dextrose 0 No 25 gm, 50 Mendoza janice 50% Syringe 2-03 mL, Route: l 08:40: IVP, Drug [place] 00 Form: INJ, Dosing Weight 92.273, kg, PRN, PRN Blood Glucose Results, Start date: 07/24/16 2:40:00 COMMUTATOR ASSEMBLER, Duration: 30 day, Stop date: 08/23/16 2:39:00 COMMUTATOR ASSEMBLER Docusate 2016-0 No Notes: Memoria 2-03 (Same as: l 07:20: Colace) [place] 00 (Do Not Crush) Ondansetron No Notes: Mendoza janice 2-03 (Same as: l 07:20: Zofran) Vin 00 MEDICATION WASTE Product Size: 4 mg Product Wasted: ___ mg Docusate 2017-0 No Notes: Memoria 2- (Same as: l 07:20: Colace) [place] 00 (Do Not Crush) Ondansetron 2017-0 No Notes: Mendoza janice 2- (Same as: l 07:20: Zofran) [place] 00 MEDICATION WASTE Product Size: 4 mg Product Wasted: ___ mg Docusate 2017-0 No Notes: Memoria 2- (Same as: l 07:20: Colace) Vin 00 (Do Not Crush) Ondansetron 2016-0 No Notes: Mendoza janice 2- (Same as: l 07:20: Zofran) Vin 00 MEDICATION WASTE Product Size: 4 mg Product Wasted: ___ mg Docusate 2017-0 No Notes: Memoria 2- (Same as: l 07:20: Colace) [place] 00 (Do Not Crush) Ondansetron 2016-0 No Notes: Mendoza janice 2- (Same as: l 07:20: Zofran) [place] 00 MEDICATION WASTE Product Size: 4 mg Product Wasted: ___ mg Lasix 2016-0 No Notes: Memoria 2- (Same as: l 06:01: Lasix) Vin 00 MEDICATION WASTE Product Size: 40 mg Product Wasted: ___ mg Lasix 2016-0 No Notes: Memoria 2- (Same as: l 06:01: Lasix) [place] 00 MEDICATION WASTE Product Size: 40 mg Product Wasted: ___ mg Lasix 2017-0 No Notes: Memoria 2- (Same as: l 06:01: Lasix) [place] 00 MEDICATION WASTE Product Size: 40 mg Product Wasted: ___ mg Lasix 2017-0 No Notes: Memoria 2- (Same as: l 06:01: Lasix) [place] 00 MEDICATION WASTE Product Size: 40 mg Product Wasted: ___ mg Aspirin 2017-0 No Notes: Memoria 2-03 Take with l [...] 0.833 MG/ML 07-24 (Same as: 04:09: Duoneb) [place] Ipratropium 00 [place] 0.167 MG/ML Inhalant Solution [DuoNeb] Albuterol No Notes: Memori a 0.833 MG/ML 07-24 (Same as: 04:09: Duoneb) Vin Ipratropium 00 [place] 0.167 MG/ML Inhalant Solution [DuoNeb] Albuterol No Notes: Memori a 0.833 MG/ML 07-24 (Same as: 04:09: Duoneb) [place] Ipratropium 00 [place] 0.167 MG/ML Inhalant Solution [DuoNeb] Albuterol No Notes: Memori a 0.833 MG/ML - (Same as: 04:09: Duoneb) [place] Ipratropium 00 [place] 0.167 MG/ML Inhalant Solution [DuoNeb] Furosemide 2015-06 Yes 80 mg = 2 Me moria 40 MG Oral 2-26 tab, PO, l Tablet 16:34: BID, # 120 Nidia nn 00 tab, 0 Refill(s) atorvastati 2015-06 Yes 40 mg = 1 M emoria n 40 mg 2-26 tab, PO, l oral tablet 16:34: Bedtime, # [place] 00 30 tab, 0 Refill(s) Insulin 2015-06 [...] PO, l oral tablet 16:34: Bedtime, # [place] 00 30 tab, 0 Refill(s) Insulin 2015-06 [...] INHALATION l 0.09 16:34: , PRN, PRN [place] MG/ACTUAT 00 as needed Metered for Dose wheezing, Inhaler use as needed for shortness of breath or wheezing, # 8 gm, 0 Refill(s) Aspirin 81 2015-06 Yes 81 mg = 1 Me moria MG Chewable 2-26 tab, PO, l Tablet 16:34: Daily, # [place] 00 30 tab, 0 Refill(s) Hydroxyzine 2015-06 Yes 50 mg = 1 M emoria Hydrochlori 2-26 cap, PO, l de 50 MG 16:34: TID, X 30 Herm naeem Oral 00 day, # 90 Capsule cap, 0 Refill(s) losartan 25 2015-06 Yes 25 mg = 1 M emoria mg oral 2-26 tab, PO, l tablet 16:34: Daily, # [place] 00 30 tab, 0 Refill(s) Furosemide 2015-06 [...] INHALATION l 0.09 16:34: , PRN, PRN [place] MG/ACTUAT 00 as needed Metered for Dose wheezing, Inhaler use as needed for shortness of breath or wheezing, # 8 gm, 0 Refill(s) Aspirin 81 2015-06 Yes 81 mg = 1 Me moria MG Chewable 2-26 tab, PO, l Tablet 16:34: Daily, # [place] 00 30 tab, 0 Refill(s) Hydroxyzine 2015-06 Yes 50 mg = 1 M emoria Hydrochlori 2-26 cap, PO, l de 50 MG 16:34: TID, X 30 Herm naeem Oral 00 day, # 90 Capsule cap, 0 Refill(s) losartan 25 2015-06 Yes 25 mg = 1 M emoria mg oral 2-26 tab, PO, l tablet 16:34: Daily, # [place] 00 30 tab, 0 Refill(s) Furosemide 2015-06 [...] INHALATION l 0.09 16:34: , PRN, PRN [place] MG/ACTUAT 00 as needed Metered for Dose [...] tab, PO, l tablet 16:34: Daily, # [place] 00 30 tab, 0 Refill(s) Lasix 2015-06 No Notes: Memoria 2-26 (Same as: l 15:00: Lasix) May Vin 00 cause GI upset. Give with food or milk. Lasix 2015-06 No Notes: Memoria 2-26 (Same as: l 15:00: Lasix) May Vin 00 cause GI upset. Give with food or milk. Lasix 2015-06 No Notes: Memoria 2-26 (Same as: l 15:00: Lasix) May [place] 00 cause GI upset. Give with food or milk. Lasix 2015-06 No Notes: Memoria 2-26 (Same as: l 15:00: Lasix) May [place] 00 cause GI upset. Give with food or milk. Magnesium 2015-06 No Notes: Memori a Oxide 2-24 (Same as: l 13:36: Mag-Ox Vin 00 400) Magnesium oxide 300ud=535e g elemental magnesium Dose=____m g magnesium oxide (___mg elemental magnesium) Magnesium 2015-06 No Notes: Memori a Oxide 2-24 (Same as: l 13:36: Mag-Ox Vin 400) Magnesium oxide 400im=473p g elemental magnesium Dose=____m g magnesium oxide (___mg elemental magnesium) Magnesium 2015-06 No Notes: Memori a Oxide 2-24 (Same as: l 13:36: [facility] 400) Magnesium oxide 946aj=782d g elemental magnesium Dose=____m g magnesium oxide (___mg elemental magnesium) Magnesium 2015-06 No Notes: Memori a Oxide 2-24 (Same as: l 13:36: [facility] ) Magnesium oxide 309rp=302g g elemental magnesium Dose=____m g magnesium oxide (___mg elemental magnesium) Magnesium 2015-06 No Notes: Memori a Oxide 2-24 (Same as: l 09:47: [facility] ) Magnesium oxide 496fm=291s g elemental magnesium Dose=____m g magnesium oxide (___mg elemental magnesium) Magnesium 2015-06 No Notes: Memori a Oxide 2-24 (Same as: l 09:47: [facility] ) Magnesium oxide 034oq=519l g elemental magnesium Dose=____m g magnesium oxide (___mg elemental magnesium) Magnesium 2015-06 No Notes: Memori a Oxide 2-24 (Same as: l 09:47: [facility] ) Magnesium oxide 343hk=794l g elemental magnesium Dose=____m g magnesium oxide (___mg elemental magnesium) Magnesium 2015-06 No Notes: Memori a Oxide 2-24 (Same as: l :47: [facility] ) Magnesium oxide 215nc=697l g elemental magnesium Dose=____m g magnesium oxide (___mg elemental magnesium) 24 HR 2015-06 No Notes: Memoria Nifedipine 2-24 (Same as: l 30 MG 04:33: Adalat CC Jake n Extended Procardia Release XL) Give Tablet on empty [...] XL 2-24 (Same as: l 00:00: Wellbutrin [place] 00 XL) "Do Not Crush" Norvasc 2015-06 No Notes: Memoria 2-24 (Same as: l 00:00: Norvasc) [place] 00 Wellbutrin 2015-06 No Notes: Memor ia XL 2-24 (Same as: l 00:00: Wellbutrin [place] 00 XL) "Do Not Crush" Norvasc 2015-06 [...] Memoria 2-24 (Same as: l 00:00: Norvasc) [place] 00 Insulin 2015-06 No Notes: Memoria Glargine [...] tab, PO, l tablet 15:35: Daily, 0 [place] 00 Refill(s) pravastatin 2015-06 No 40 mg = 1 M emoria 40 mg oral 2-23 tab, PO, l tablet 15:35: Daily, 0 [place] 00 Refill(s) amLODIPine 2015-06 No 10 mg [...] tab, PO, l tablet 15:35: Daily, 0 [place] 00 Refill(s) amLODIPine 2015-06 No 10 mg [...] tab, PO, l Tablet 15:27: Daily, 0 [place] [Zoloft] 00 Refill(s) pantoprazol 2015-06 Yes 40 [...] AND 1 l Capsule 15:27: CAP AT [place] 00 BEDTIME, 0 Refill(s) Insulin, 2015-06 No [...] tab, PO, l Tablet 15:27: Daily, 0 [place] [Zoloft] 00 Refill(s) pantoprazol 2015-06 Yes 40 mg = 1 M emoria e 40 MG 2-23 tab, PO, l Enteric 15:27: Daily, 0 Jake n Coated 00 Refill(s) Tablet [Protonix] gabapentin 2015-06 Yes 1 CAP PO Mem oria 300 MG Oral 2-23 BID AND 1 l Capsule 15:27: CAP AT [place] 00 BEDTIME, 0 Refill(s) Insulin, 2015-06 No [...] tab, PO, l Tablet 15:27: Daily, 0 [place] [Zoloft] 00 Refill(s) pantoprazol 2015-06 Yes 40 [...] atorvastati 2015-06 No Notes: Mendoza janice n - (Same as: l 03:00: Lipitor) Lactulose 2015-06 No Notes: Memori a 2-22 (Same l 19:00: as:Chronul ) Lactulose 2015-06 No Notes: Memori a 2-22 (Same l 19:00: as:Chron ) Lactulose 2015-06 No Notes: Memori a 2-22 (Same l 19:00: as:Chronul ) Lactulose 2015-06 No Notes: Memori a 2-22 (Same l 19:00: as:) Furosemide 2015-06 No Notes: Memor ia 2-22 (Same as: l 15:00: Lasix) MEDICATION WASTE Product Size: 40 mg Product Wasted: ___ mg Aspirin 81 2015-06 No Notes: Memor ia MG Chewable - Take with l Tablet 15:00: food. gabapentin 2015-06 No Notes: Memor ia 300 MG Oral - (Same as: l Capsule 15:00: Neurontin) Divalproex 2015-06 No Notes: Memor ia Sodium 500 - (Same as: l MG Enteric 15:00: Depakote Her ER) Once Tablet daily [Depakote] dosing; indicated for migraines. Divalproex sodium extended-r elease tab. Do not chew or crush. "Do Not Crush" Aspirin 2015-06 No 81 mg, Memoria 2-22 Route: PO, l 15:00: Drug form: ECTAB, Daily, Dosing Weight 86.364, kg, Start date: 06/11/16 9:00:00 COMMUTATOR ASSEMBLER, Duration: 30 day, Stop date: 07/10/16 9:00:00 COMMUTATOR ASSEMBLER Insulin 2015-06 No Notes: Memoria Glargine 2-22 [...] Weight 86.364, kg, Start date: 06/11/16 9:00:00 COMMUTATOR ASSEMBLER, Duration: 30 day, Stop date: 07/10/16 9:00:00 COMMUTATOR ASSEMBLER Insulin 2015-06 No Notes: Memoria Glargine 2-22 [...] Weight 86.364, kg, Start date: 06/11/16 9:00:00 COMMUTATOR ASSEMBLER, Duration: 30 day, Stop date: 07/10/16 9:00:00 COMMUTATOR ASSEMBLER Insulin 2015-06 No Notes: Memoria Glargine 2-22 [...] Weight 86.364, kg, Start date: 06/11/16 9:00:00 COMMUTATOR ASSEMBLER, Duration: 30 day, Stop date: 07/10/16 9:00:00 COMMUTATOR ASSEMBLER Insulin 2015-06 No Notes: Memoria Glargine 2-22 Same as: l 100 UNT/ML 15:00: Lantus) Do H ermann Injectable 00 not hold Solution insulin [Lantus] without contacting prescriber WASTE: F/P - Black; E - Municipal Trash Bin Zoloft 2015-06 No Notes: Memoria 2-22 (Same as: l 15:00: Zoloft) [place] 00 Insulin, 2015-06 No Notes: Memoria Aspart, 2-22 Roll in l Human 12:55: palms of [place] 00 hands gently; Do not shake vigorously [...] Roll in l Human 12:55: palms of [place] 00 hands gently; Do not shake vigorously . (Same as: NovoLOG) "single patient use only" WASTE: F/P - Black; E - Municipal Trash Bin Stable for 28 days at room temperatur e. Expires in days from ____Date heparin 2015-06 No Notes: Memoria sodium, 2-22 porcine l porcine 06:00: heparin [place] 2500 UNT/ML 00 Injectable Solution heparin 2015-06 No Notes: Memoria sodium, 2-22 porcine l porcine 06:00: heparin Vin 2500 UNT/ML 00 Injectable Solution heparin 2015-06 No Notes: Memoria sodium, 2-22 porcine l porcine 06:00: heparin [place] 2500 UNT/ML 00 Injectable Solution heparin 2015-06 No Notes: Memoria sodium, 2-22 porcine l porcine 06:00: heparin Vin 2500 UNT/ML 00 Injectable Solution Albuterol 2015-06 No Notes: Memori a 0.833 MG/ML 2-22 (Same as: 03:00: Duoneb) [place] Ipratropium 00 [place] 0.167 MG/ML Inhalant Solution [DuoNeb] gabapentin 2015-06 No 300 mg, Mendoza janice 300 MG Oral 08-12 Route: PO, l Capsule 03:00: Drug form: Herm naeem 00 CAP, Q12H, Dosing Weight 86.364, kg, (CrCl 30 - 59 ml/min), Start date: 06/10/16 21:00:00 COMMUTATOR ASSEMBLER, Duration: 30 day, Stop date: 07/10/16 9:00:00 COMMUTATOR ASSEMBLER divalproex 2015-06 No Notes: Memor ia sodium 2-22 (Same as: l 03:00: Depakote Vin 00 ER) Once daily dosing; indicated for migraines. Divalproex sodium extended-r elease tab. Do not chew or crush. "Do Not Crush" Losartan 2015-06 No Notes: Memoria 2-22 (Same as: l 03:00: Cozaar) Vin 00 Albuterol 2015-06 No Notes: Memori a 0.833 MG/ML 2-22 (Same as: 03:00: Duoneb) [place] Ipratropium 00 [place] 0.167 MG/ML Inhalant Solution [DuoNeb] gabapentin 2015-06 No 300 mg, Mendoza janice 300 MG Oral 222 Route: PO, l Capsule 03:00: Drug form: Herm naeem 00 CAP, Q12H, Dosing Weight 86.364, kg, (CrCl 30 - 59 ml/min), Start date: 06/10/16 21:00:00 COMMUTATOR ASSEMBLER, Duration: 30 day, Stop date: 07/10/16 9:00:00 COMMUTATOR ASSEMBLER divalproex 2015-06 No Notes: Memor ia sodium 2-22 (Same as: l 03:00: Depakote Vin 00 ER) Once daily dosing; indicated for migraines. Divalproex sodium extended-r elease tab. Do not chew or crush. "Do Not Crush" Losartan 2015-06 No Notes: Memoria 2-22 (Same as: l 03:00: Cozaar) [place] 00 Albuterol 2015-06 No Notes: Memori a 0.833 MG/ML 2-22 (Same as: l / 03:00: Duoneb) Vin Ipratropium 00 [place] 0.167 MG/ML Inhalant Solution [DuoNeb] gabapentin 2015-06 No 300 mg, Mendoza janice 300 MG Oral 2-22 Route: PO, l Capsule 03:00: Drug form: Herm naeem 00 CAP, Q12H, Dosing Weight 86.364, kg, (CrCl 30 - 59 ml/min), Start date: 06/10/16 21:00:00 COMMUTATOR ASSEMBLER, Duration: 30 day, Stop date: 07/10/16 9:00:00 COMMUTATOR ASSEMBLER divalproex 2015-06 No Notes: Memor ia sodium 2-22 (Same as: l 03:00: Depakote [place] 00 ER) Once daily dosing; indicated for migraines. Divalproex sodium extended-r elease tab. Do not chew or crush. "Do Not Crush" Losartan 2015-06 No Notes: Memoria 2-22 (Same as: l 03:00: Cozaar) Vin 00 Albuterol 2015-06 No Notes: Memori a 0.833 MG/ML 2-22 (Same as: l / 03:00: Duoneb) Vin Ipratropium 00 [place] 0.167 MG/ML Inhalant Solution [DuoNeb] gabapentin 2015-06 No 300 mg, Mendoza janice 300 MG Oral 2-22 Route: PO, l Capsule 03:00: Drug form: Herm naeem 00 CAP, Q12H, Dosing Weight 86.364, kg, (CrCl 30 - 59 ml/min), Start date: 06/10/16 21:00:00 COMMUTATOR ASSEMBLER, Duration: 30 day, Stop date: 07/10/16 9:00:00 COMMUTATOR ASSEMBLER divalproex 2015-06 No Notes: Memor ia sodium 2-22 (Same as: l 03:00: Depakote Vin 00 ER) Once daily dosing; indicated for migraines. Divalproex sodium extended-r elease tab. Do not chew or crush. "Do Not Crush" Losartan 2015-06 No Notes: Memoria 2-22 (Same as: l 03:00: Cozaar) [place] 00 Insulin, 2015-06 No Notes: Memoria Aspart, 2-22 Roll in l Human 00:50: palms of [place] 00 hands gently; Do not shake vigorously [...] Blood Glucose Results, Start date: 06/10/16 18:50:00 COMMUTATOR ASSEMBLER, Duration: 30 day, Stop date: 07/10/16 18:49:00 COMMUTATOR ASSEMBLER Glucagon 2015-06 No 1 mg, Memoria 2-22 Route: IM, l 00:50: Drug form: [place] PDR/INJ, PRN, Dosing Weight 86.364, kg, PRN Blood Glucose Results, Start date: 06/10/16 18:50:00 COMMUTATOR ASSEMBLER, Duration: 30 day, Stop date: 07/10/16 18:49:00 COMMUTATOR ASSEMBLER Insulin, 2015-06 No Notes: Memoria Aspart, 2-22 [...] Blood Glucose Results, Start date: 06/10/16 18:50:00 COMMUTATOR ASSEMBLER, Duration: 30 day, Stop date: 07/10/16 18:49:00 COMMUTATOR ASSEMBLER Glucagon 2015-06 No 1 mg, Memoria 2-22 Route: IM, l 00:50: Drug form: [place] 00 PDR/INJ, PRN, Dosing Weight 86.364, kg, PRN Blood Glucose Results, Start date: 06/10/16 18:50:00 COMMUTATOR ASSEMBLER, Duration: 30 day, Stop date: 07/10/16 18:49:00 COMMUTATOR ASSEMBLER Insulin, 2015-06 No Notes: Memoria Aspart, 2-22 [...] Blood Glucose Results, Start date: 06/10/16 18:50:00 COMMUTATOR ASSEMBLER, Duration: 30 day, Stop date: 07/10/16 18:49:00 COMMUTATOR ASSEMBLER Glucagon 2015-06 No 1 mg, Memoria 2-22 Route: IM, l 00:50: Drug form: [place] 00 PDR/INJ, PRN, Dosing Weight 86.364, kg, PRN Blood Glucose Results, Start date: 06/10/16 18:50:00 COMMUTATOR ASSEMBLER, Duration: 30 day, Stop date: 07/10/16 18:49:00 COMMUTATOR ASSEMBLER Insulin, 2015-06 No Notes: Memoria Aspart, 2-22 [...] Blood Glucose Results, Start date: 06/10/16 18:50:00 COMMUTATOR ASSEMBLER, Duration: 30 day, Stop date: 07/10/16 18:49:00 COMMUTATOR ASSEMBLER Glucagon 2015-06 No 1 mg, Memoria 2-22 Route: IM, l 00:50: Drug form: Vin 00 PDR/INJ, PRN, Dosing Weight 86.364, kg, PRN Blood Glucose Results, Start date: 06/10/16 18:50:00 COMMUTATOR ASSEMBLER, Duration: 30 day, Stop date: 07/10/16 18:49:00 COMMUTATOR ASSEMBLER Hydralazine 2015-06 No Notes: Mendoza janice 2-22 (Same as: l 00:36: Apresoline [place] 00 ) Push over 5 minutes Hydralazine 2015-06 No Notes: Mendoza janice 2-22 (Same as: l 00:36: Apresoline [place] 00 ) Push over 5 minutes Hydralazine 2015-06 No Notes: Mendoza janice 2-22 (Same as: l 00:36: Apresoline Vin 00 ) Push over 5 minutes Hydralazine 2015-06 No Notes: Mendoza ajnice 2-22 (Same as: l 00:36: Apresoline Vin 00 ) Push over 5 minutes Hydralazine 2015-06 No Notes: Mendoza janice 2-22 (Same as: l 00:34: Apresoline [place] 00 ) May interfere w/enteral feedings Take With Food Hydralazine 2015-06 No Notes: Mendoza janice 2-22 (Same as: l 00:34: Apresoline [place] 00 ) May interfere w/enteral feedings Take With Food Hydralazine 2015-06 No Notes: Mendoza janice 2-22 (Same as: l 00:34: Apresoline [place] 00 ) May interfere w/enteral feedings Take With Food Hydralazine 2015-06 No Notes: Mendoza janice 2-22 (Same as: l 00:34: Apresoline [place] ) May interfere w/enteral feedings Take With [...] Weight 86.364, kg, Start date: 06/10/16 18:06:00 COMMUTATOR ASSEMBLER, Stop date: 06/10/16 18:06:00 COMMUTATOR ASSEMBLER Hydralazine 2015-06 No 10 mg, Mendoza janice 2-22 Route: IV, l 00:06: ONCE, Dosing Weight 86.364, kg, Start date: 06/10/16 18:06:00 COMMUTATOR ASSEMBLER, Stop date: 06/10/16 18:06:00 COMMUTATOR ASSEMBLER Hydralazine 2015-06 No 10 mg, Mendoza janice 2-22 Route: IV, l 00:06: ONCE, Dosing Weight 86.364, kg, Start date: 06/10/16 18:06:00 COMMUTATOR ASSEMBLER, Stop date: 06/10/16 18:06:00 COMMUTATOR ASSEMBLER Hydralazine 2015-06 No 10 mg, Mendoza janice 2-22 Route: IV, l 00:06: ONCE, [place] 00 Dosing Weight 86.364, kg, Start date: 06/10/16 18:06:00 COMMUTATOR ASSEMBLER, Stop date: 06/10/16 18:06:00 COMMUTATOR ASSEMBLER hydrOXYzine 2015-06 No Notes: Mendoza janice pamoate [...] Weight 86.364, kg, Start date: 06/10/16 16:32:00 COMMUTATOR ASSEMBLER, Stop date: 06/10/16 16:32:00 COMMUTATOR ASSEMBLER Furosemide 2015-06 No 60 mg, Memor ia 2-21 Route: l 22:32: IVP, Drug Vin 00 form: INJ, ONCE, Dosing Weight 86.364, kg, Start date: 06/10/16 16:32:00 COMMUTATOR ASSEMBLER, Stop date: 06/10/16 16:32:00 COMMUTATOR ASSEMBLER Furosemide 2015-06 No 60 mg, Memor ia 2-21 Route: l 22:32: IVP, Drug Vin 00 form: INJ, ONCE, Dosing Weight 86.364, kg, Start date: 06/10/16 16:32:00 COMMUTATOR ASSEMBLER, Stop date: 06/10/16 16:32:00 COMMUTATOR ASSEMBLER Furosemide 2015-06 No 60 mg, Memor ia 2-21 Route: l 22:32: IVP, Drug Vin 00 form: INJ, ONCE, Dosing Weight 86.364, kg, Start date: 06/10/16 16:32:00 COMMUTATOR ASSEMBLER, Stop date: 06/10/16 16:32:00 COMMUTATOR ASSEMBLER Lasix 2015-06 No Notes: Memoria 2-21 (Same as: 17:22: Lasix) MEDICATION WASTE Product Size: 40 mg Product Wasted: _0__ mg Albuterol 2015-06 No Notes: Memori a 0.833 MG/ML - (Same as: 17:22: Duoneb) Ipratropium 00 [place] 0.167 MG/ML Inhalant Solution [DuoNeb] Lasix 2015-06 No Notes: Memoria 2- (Same as: l 17:22: Lasix) [place] 00 MEDICATION WASTE Product Size: 40 mg Product Wasted: _0__ mg Albuterol 2015-06 No Notes: Memori a 0.833 MG/ML - (Same as: 17:22: Duoneb) Vin Ipratropium 00 [place] 0.167 MG/ML Inhalant Solution [DuoNeb] Lasix 2015-06 No Notes: Memoria 2- (Same as: l 17:22: Lasix) Vin 00 MEDICATION WASTE Product Size: 40 mg Product Wasted: _0__ mg Albuterol 2015-06 No Notes: Memori a 0.833 MG/ML 08-11 (Same as: :: Duoneb) [place] Ipratropium 00 [place] 0.167 MG/ML Inhalant Solution [DuoNeb] Lasix 2015-06 No Notes: Memoria - (Same as: l 17:22: Lasix) Vin 00 MEDICATION WASTE Product Size: 40 mg Product Wasted: _0__ mg Albuterol 2015-06 No Notes: Memori a 0.833 MG/ML 08-11 (Same as: :: Duoneb) [place] Ipratropium 00 [place] 0.167 MG/ML Inhalant Solution [DuoNeb] Promethazin Yes 25 mg = 1 M emoria e 06-26 supp, MI, l Hydrochlori 14:45: Q6H, Jake n de 25 MG 00 Nausea & Rectal Vomiting, Suppository # 9 supp, [Phenergan] 0 Refill(s) Promethazin 2014- Yes 25 mg = 1 M emoria e 1-06 supp, MI, l Hydrochlori 14:45: Q6H, Jake n de 25 MG 00 Nausea & Rectal Vomiting, Suppository # 9 supp, [Phenergan] 0 Refill(s) Promethazin 2014- Yes 25 mg = 1 M emoria e 06-26 supp, MI, l Hydrochlori 14:45: Q6H, Jake n de 25 MG 00 Nausea & Rectal Vomiting, Suppository # 9 supp, [Phenergan] 0 Refill(s) Promethazin Yes 25 mg = 1 M emoria e 1-06 supp, MI, l Hydrochlori 14:45: Q6H, Jake [...] Coated 00 Refill(s) Tablet Hydromorpho No Notes: Mednoza janice ne 06-26 Same as: l 11:48: Dilaudid Vin Hydromorpho No Notes: Mendoza janice ne 06-26 Same as: l 11:48: Dilaudid Vin Hydromorpho No Notes: Mendoza janice ne 06-26 Same as: l 11:48: Dilaudid [place] Hydromorpho No Notes: Mendoza janice ne 06 Same as: l 11:48: Dilaudid [place] hydrOXYzine Yes 0 Memori a pamoate 1-06 Refill(s) l 11:18: Vin 00 Dicyclomine Yes 0 Memori a 1-06 Refill(s) l 11:18: [place] 00 hydrOXYzine Yes 0 Memori a pamoate 1-06 Refill(s) l 11:18: Vin Dicyclomine Yes 0 Memori a 1-06 Refill(s) l 11:18: Vin 00 hydrOXYzine Yes 0 Memori a pamoate 1-06 Refill(s) l 11:18: [place] Dicyclomine Yes 0 Memori a 1-06 Refill(s) l 11:18: Vin hydrOXYzine Yes 0 Memori a pamoate 1-06 Refill(s) l 11:18: [place] Dicyclomine 0 Yes 0 Memori a 1-06 Refill(s) l [...] Memori a 1-06 Refill(s) l 11:17: Benztropine 2014-0 Yes 0 Memori a 1-06 Refill(s) l 11:17: Clonidine 2015-0 Yes 0 Memoria 1-06 Refill(s) l 11:17: Zoloft 2014-0 Yes 0 Memoria 1-06 Refill(s) l 11:17: Metoclopram 2015-0 Yes 0 Memori a gadiel 1-06 Refill(s) l 11:17: Ondansetron 2015-0 Yes 0 Memori a 1-06 Refill(s) l 11:17: Benztropine 2014-0 Yes 0 Memori a 1-06 Refill(s) [...] Yes 0 Memoria 1-06 Refill(s) l 11:17: [place] 00 Metoclopram 2015-0 Yes 0 Memori a gadiel 1-06 Refill(s) l 11:17: Vin 00 Erythromyci 2014-0 Yes 0 Memori a n 1-06 Refill(s) l 11:16: Tramadol 2015-0 Yes 0 Memoria 1-06 Refill(s) l 11:16: Depakote 2014-0 Yes 0 Memoria 1-06 Refill(s) l 11:16: quetiapine 2014-0 Yes 0 Memoria 1-06 Refill(s) l 11:16: Erythromyci 2014-0 Yes 0 Memori a n 1-06 Refill(s) l 11:16: Tramadol 2014-0 Yes 0 Memoria 1-06 Refill(s) l 11:16: Depakote 2014-0 Yes 0 Memoria 1-06 Refill(s) l 11:16: quetiapine 2015-0 Yes 0 Memoria 1-06 Refill(s) l 11:16: Erythromyci 2014-0 Yes 0 Memori a n [...] Chloride 1-06 1,000 l 0.154 10:56: ml/hr, [place] MEQ/ML 00 Infuse Injectable Over: 2 Solution hr, Route: IV, 2,000, Drug form: INJ, ONCE, Priority: STAT, Dosing Weight 75 kg, Start date: 06/26/14 4:56:00, Duration: 1 doses or times, Stop date: 06/26/14 4:56:00 Lorazepam 0 No Notes: Memori a 1-06 (Same as: l 10:56: Ativan) Sodium No 2,000 mL, Memori a Chloride 1-06 1,000 l 0.154 10:56: ml/hr, [place] MEQ/ML 00 Infuse Injectable Over: 2 Solution hr, Route: IV, 2,000, Drug form: INJ, ONCE, Priority: STAT, Dosing Weight 75 kg, Start date: 06/26/14 4:56:00, Duration: 1 doses or times, Stop date: 06/26/14 4:56:00 Lorazepam 0 No Notes: Memori a 1-06 (Same as: l 10:56: Ativan) Sodium No 2,000 mL, Memori a Chloride 1-06 1,000 l 0.154 10:56: ml/hr, [place] MEQ/ML 00 Infuse Injectable Over: 2 Solution hr, Route: IV, 2,000, Drug form: INJ, ONCE, Priority: STAT, Dosing Weight 75 kg, Start date: 06/26/14 4:56:00, Duration: 1 doses or times, Stop date: 06/26/14 4:56:00 Lorazepam 0 No Notes: Memori a 1-06 (Same as: l 10:56: Ativan) Sodium No 2,000 mL, Memori a Chloride 1-06 1,000 l 0.154 10:56: ml/hr, [place] MEQ/ML 00 Infuse Injectable Over: 2 Solution hr, Route: IV, 2,000, Drug form: INJ, ONCE, Priority: STAT, Dosing Weight 75 kg, Start date: 06/26/14 4:56:00, Duration: 1 doses or times, Stop date: 06/26/14 4:56:00 Lorazepam 0 No Notes: Memori a 1-06 (Same as: l 10:56: Ativan) Vin 00 Metoclopram No Notes: Mendoza janice gadiel 06-26 [...] Rate: 125 l 0.9% IV 04:10: ml/hr, [place] 1,000 mL 00 Infuse over: 8 hr, [...] Stop date: 04/14/13 23:10:00 ketorolac 2012-06 No Mattehw Gary 30 mg, M emoria 0-26 Marry [...] Rate: 125 l 0.9% IV 04:10: ml/hr, [place] 1,000 mL 00 Infuse over: 8 hr, [...] STAT, Start date: 04/14/13 23:10:00, Stop date: 10/25/13 23:10:00 ondansetron 2012- No Matthew Gary 4 [...] Marx Rate: 500 l 0.9% 23:45: ml/hr, [place] (Bolus) IV 00 Infuse 500 mL over: [...] 2011-0 No Hung Murillo 4 mg, Memoria -24 Marx Route: l 22:19: IVP, ONCE, Dosing [...] 9-24 Marx Rate: l 0.9% 22:19: 1,000 [place] (Bolus) IV 00 ml/hr, 500 mL Infuse [...] tab, 1, 1, Substituti on Allowed Reglan Yes Blake 10 mg, 1 M emoria mg oral 6-11 Deangelo tab, PO, l tablet 11:11: Brisa QID-Before H ermann 13 Meals, 120 tab, 1, 1, Substituti on Allowed Reglan Yes Blake 10 mg, 1 M emoria mg oral 6-11 Deangelo tab, PO, l tablet 11:11: Brisa QID-Before H ermann 13 Meals, 120 tab, 1, 1, Substituti on Allowed Reglan 10 2011-0 Yes Blake 10 mg, 1 M emoria mg oral 6-11 Deangelo tab, PO, l tablet 11:11: Brisa QID-Before H ermann 13 Meals, 120 tab, 1, 1, Substituti on Allowed insulin No Blake 10 unit, Mem oria isophane-TRANSFER COORDINATOR 6-11 Deangelo 0.1 mL, l H 02:00: Route: [place] 00 SUB-Q, Drug form: INJ, Bedtime, Start date: 11/29/11 21:00:00, Duration: 30 day, Stop date: 12/28/11 21:00:00 Insulin No Blake 8 unit, Mendoza janice regular 6-11 Deangelo 0.08 mL, l 02:00: Route: [place] 00 SUB-Q, Drug form: SOLN, Bedtime, Start date: 11/29/11 21:00:00, Duration: 30 day, Stop date: 12/28/11 21:00:00 trazodone 0 No Blake 200 mg, 2 Memoria 100 [...] 30 day, Stop date: 12/28/11 21:00:00 insulin No Blake 10 unit, Mem oria isophane-TRANSFER COORDINATOR 6-11 Deangelo 0.1 mL, l H 02:00: Route: Vin 00 SUB-Q, Drug form: INJ, Bedtime, Start date: 11/29/11 21:00:00, Duration: 30 day, Stop date: 12/28/11 21:00:00 Insulin 0 No Blake 8 unit, Mendoza janice regular 6-11 Deangelo 0.08 mL, l 02:00: Brisa Route: [place] SUB-Q, Drug form: SOLN, Bedtime, Start date: [...] 2011-0 No Blake 10 unit, Mem oria isophane-TRANSFER COORDINATOR 6-11 Deangelo 0.1 mL, l H 02:00: Route: [place] 00 SUB-Q, Drug form: INJ, Bedtime, Start date: 11/29/11 21:00:00, Duration: 30 day, Stop date: 12/28/11 21:00:00 Insulin 2011-0 No Blake 8 unit, Mendoza janice regular 6-11 Deangelo 0.08 mL, l 02:00: Route: [place] 00 SUB-Q, Drug form: SOLN, Bedtime, Start [...] 2011-0 No Blake 10 unit, Mem oria isophane-TRANSFER COORDINATOR 6-11 Deangelo 0.1 mL, l H 02:00: Brisa Route: [place] SUB-Q, Drug form: INJ, Bedtime, Start date: [...] Omidvar mL, Route: l 21:32: IVP, Drug [place] 00 form: INJ, ONCE, Start date: 11/29/11 16:32:00, Stop date: 11/29/11 16:32:00 morphine 2011-0 No [place] 2 mg, 0.5 Me moria Sulfate 6-10 Omidvar mL, Route: l 21:32: IVP, Drug Vin 00 form: INJ, ONCE, Start date: 11/29/11 16:32:00, Stop date: 11/29/11 16:32:00 morphine 2012-0 No [place] 2 mg, 0.5 Me moria Sulfate 6-10 Omidvar mL, Route: l 21:32: IVP, Drug Vin 00 form: INJ, ONCE, Start date: 11/29/11 16:32:00, Stop date: 11/29/11 16:32:00 morphine 2011-0 No [place] 2 mg, 0.5 Me moria Sulfate 6-10 Omidvar mL, Route: l 21:32: IVP, Drug [place] 00 form: INJ, ONCE, Start date: 11/29/11 16:32:00, Stop date: 11/29/11 16:32:00 Tylenol 2011-0 No [place] 650 mg, 2 Mem oria 6-10 Omidvar tab, l 19:16: Route: PO, Vin 00 Drug form: TAB, Q4H, PRN Pain, Start date: 11/29/11 14:16:00, Duration: 30 day, Stop date: 12/29/11 14:15:00 Tylenol 2011-0 No [place] 650 mg, 2 Mem oria 6-10 Omidvar tab, l 19:16: Route: PO, [place] 00 Drug form: TAB, Q4H, PRN Pain, Start date: 11/29/11 14:16:00, Duration: 30 day, Stop date: 12/29/11 14:15:00 Tylenol 2011-0 No [place] 650 mg, 2 Mem oria 6-10 Omidvar tab, l 19:16: Route: PO, [place] Drug form: TAB, Q4H, PRN Pain, Start date: 11/29/11 14:16:00, Duration: 30 day, Stop date: 12/29/11 14:15:00 Tylenol 2011-0 No [place] 650 mg, 2 Mem oria 6-10 Omidvar tab, l 19:16: Route: PO, [place] 00 Drug form: TAB, Q4H, PRN Pain, Start date: 11/29/11 14:16:00, Duration: 30 day, Stop date: 12/29/11 14:15:00 insulin 2011-0 No Blake 14 unit, Mem oria isophane-TRANSFER COORDINATOR 6-10 Deangelo 0.14 mL, l H 14:00: Brisa Route: [place] 00 SUB-Q, Drug form: INJ, Daily, Start date: 11/29/11 9:00:00, Duration: 30 day, Stop date: 12/28/11 9:00:00 Insulin 2011-0 No Blake 10 unit, Mem oria regular 6-10 Deangelo 0.1 mL, l 14:00: Brisa Route: [place] 00 SUB-Q, Drug form: SOLN, Daily, Start [...] 2011-0 No Blake 14 unit, Mem oria isophane-TRANSFER COORDINATOR 6-10 Deangelo 0.14 mL, l H 14:00: Brisa Route: [place] 00 SUB-Q, Drug form: INJ, Daily, Start [...] tab, l 14:00: Brisa Route: PO, Her barden 00 Drug form: TAB, Daily, Start date: 11/29/11 9:00:00, Duration: 30 day, Stop date: 12/28/11 9:00:00 insulin 2011-0 No Blake 14 unit, Mem oria isophane-TRANSFER COORDINATOR 6-10 Deangelo 0.14 mL, l H 14:00: Brisa Route: Vin 00 SUB-Q, Drug form: INJ, Daily, Start date: 11/29/11 9:00:00, Duration: 30 day, Stop date: 12/28/11 9:00:00 Insulin 2011-0 No Blake 10 unit, Mem oria regular 6-10 Deangelo 0.1 mL, l 14:00: Brisa Route: [place] 00 SUB-Q, Drug form: SOLN, Daily, Start [...] tab, l 14:00: Brisa Route: PO, Her braedn 00 Drug form: TAB, Daily, Start date: [...] 2011-0 No Blake 14 unit, Mem oria isophane-TRANSFER COORDINATOR 6-10 Deangelo 0.14 mL, l H 14:00: Brisa Route: [place] 00 SUB-Q, Drug form: INJ, Daily, Start [...] Deangelo 0.1 mL, l 06:30: Brisa Route: [place] SUB-Q, Drug form: SOLN, TID-Before Meals, PRN [...] 30 day, Stop date: 12/29/11 1:29:00 glucagon 0 No Blake 1 mg, Memor ia 6-10 [...] 30 day, Stop date: 12/29/11 1:28:00 normal 2011-0 No Blake 1,000 mL, Mem oria saline 0.9% 6-10 Deangelo Rate: 200 l IV 1,000 mL 06:29: Brisa ml/hr, [place] 00 Infuse over: 5 hr, Route: IV, Dosing Weight 57.273 kg, Total Volume: 1,000, Start date: 11/29/11 1:29:00, Duration: 30 day, Stop date: 12/29/11 1:28:00 normal 2011-0 No Blake 1,000 mL, Mem oria saline 0.9% 6-10 Deangelo Rate: 200 l IV 1,000 mL 06:29: Brisa ml/hr, [place] 00 Infuse over: 5 hr, Route: IV, Dosing Weight 57.273 kg, Total Volume: 1,000, Start date: 11/29/11 1:29:00, Duration: 30 day, Stop date: 12/29/11 1:28:00 normal 0 No Blake 1,000 mL, Mem oria saline 0.9% 6-10 Deangelo Rate: 200 l IV 1,000 mL 06:29: Brisa ml/hr, [place] 00 Infuse over: 5 hr, Route: IV, [...] 6-10 Deangelo Route: IV, l 06:28: [facility] Drug form: Her braden 00 INJ, [...] 6-10 Deangelo Route: IV, l 06:28: [facility] Drug form: Her braden 00 INJ, [...] 6-10 Deangelo Route: IV, l 06:28: [facility] Drug form: Her braden 00 INJ, [...] mL, Route: l 04:01: Brown IVP, Drug [place] 00 form: INJ, ONCE, Priority: STAT, Start date: 11/28/11 23:01:00, Stop date: 11/28/11 23:01:00 metoclopram 2012-0 No Nikki 10 mg, 2 Memoria gadiel 6-10 Sarah mL, Route: l 04:01: Brown IVP, Drug [place] 00 form: INJ, ONCE, Priority: STAT, Start [...] mL, Route: l 04:01: Brown IVP, Drug [place] 00 form: INJ, ONCE, Priority: STAT, Start [...] mL, Route: l 02:31: Brown IVP, Drug [place] 00 form: INJ, ONCE, Priority: STAT, Start [...] mL, Route: l 02:31: Brown IVP, Drug [place] 00 form: INJ, ONCE, Priority: STAT, Start date: 11/28/11 21:31:00, Stop date: 11/28/11 21:31:00 NS (Bolus) No Arif Domenico 1,000 mL, Memoria IV 1,000 mL 11-27 Rate: l 22:48: 1,000 [place] 00 ml/hr, Infuse over: 1 hr, Route: [...] 1,000 mL 6- Rate: l 22:48: 1,000 [place] 00 ml/hr, Infuse over: 1 hr, Route: IV, Dosing Weight 57.273 kg, Total Volume: 1,000, Start date: 11/28/11 17:48:00, Duration: 30 day, Stop date: 12/28/11 17:47:00 NS (Bolus) No Arif Domenico 1,000 mL, Memoria IV 1,000 mL 6 Rate: l 22:48: 1,000 Vin 00 ml/hr, [...] 1,000 mL 6 Rate: l 20:36: 1,000 [place] 00 ml/hr, Infuse over: 1 hr, Route: IV, Dosing Weight 57.273 kg, Total Volume: 1,000, Start date: 11/28/11 15:36:00, Duration: 30 day, Stop date: 12/28/11 15:35:00 NS (Bolus) No Arif Domenico 1,000 mL, Memoria IV 1,000 mL 6- Rate: l 20:36: 1,000 [place] 00 ml/hr, Infuse over: 1 hr, Route: IV, Dosing Weight 57.273 kg, Total Volume: 1,000, Start date: 11/28/11 15:36:00, Duration: 30 day, Stop date: 12/28/11 15:35:00 NS (Bolus) No Arif Domenico 1,000 mL, Memoria IV 1,000 mL 11-27 Rate: l 20:36: 1,000 [place] 00 ml/hr, Infuse over: 1 hr, Route: [...] Hughes-Jason 8 unit, M emoria 100 3-30 [place] SUB-Q, l units/mL 17:47: [place] Q12H, 2 He rmann injectable 42 Pu vial, solution Substituti on Allowed, SOLN Novolin R Yes Hughes-Jason 8 unit, M emoria 100 3-30 [place] SUB-Q, l units/mL 17:47: [place] Q12H, 2 He rmann injectable 42 Pu vial, solution Substituti on Allowed, SOLN Novolin R 2011- Yes Hughes-Jason 8 unit, M emoria 100 3-30 [place] SUB-Q, l units/mL 17:47: [place] Q12H, 2 He rmann injectable 42 Pu vial, solution Substituti on Allowed, SOLN Novolin R 2011- Yes Hughes-Jason 8 unit, M emoria 100 3-30 [place] SUB-Q, l units/mL 17:47: [place] Q12H, 2 He rmann injectable 42 Pu vial, solution Substituti on Allowed, SOLN Novolin N 2011- Yes Hughes-Jason 10 unit, Memoria 100 3-30 [place] SUB-Q, l units/mL 17:46: Dawson Bedtime, H ermann subcutaneou 27 Pu 10 ml, s injection Substituti on Allowed, SUSP Novolin N 2011- Yes Hughes-Jason 10 unit, Memoria 100 3-30 [place] SUB-Q, l units/mL 17:46: Dawson Bedtime, H ermann subcutaneou 27 Pu 10 ml, s injection Substituti on Allowed, SUSP Novolin N 2011- Yes Hughes-Jason 10 unit, Memoria 100 3-30 [place] SUB-Q, l units/mL 17:46: Dawson Bedtime, H ermann subcutaneou 27 Pu 10 ml, s injection Substituti on Allowed, SUSP Novolin N 2011- Yes Hughes-Jason 10 unit, Memoria 100 3-30 [place] SUB-Q, l units/mL 17:46: Dawson Bedtime, H ermann subcutaneou 27 Pu 10 ml, s injection Substituti on Allowed, SUSP Novolin N 2011- Yes Hughes-Jason 14 unit, Memoria 100 3-30 [place] SUB-Q, l units/mL 17:44: Dawson QAM, 1 Her braden subcutaneou 37 Pu vial, s injection Substituti on Allowed, SUSP Novolin N 2011-0 Yes Hughes-Jason 14 unit, Memoria 100 3-30 [place] SUB-Q, l units/mL 17:44: Dawson QAM, 1 Her braden subcutaneou 37 Pu vial, s injection Substituti on Allowed, SUSP Novolin N Yes Hughes-Jason 14 unit, Memoria 100 3-30 [place] SUB-Q, l units/mL 17:44: Dawson QAM, 1 Her braden subcutaneou 37 Pu vial, s injection Substituti on Allowed, SUSP Novolin N Yes Hughes-Jason 14 unit, Memoria 100 3-30 [place] SUB-Q, l units/mL 17:44: Dawson QAM, 1 Her braden subcutaneou 37 Pu vial, s injection Substituti on Allowed, SUSP magnesium No Hughes-Jason 400 mg, 1 Memoria oxide 3-30 [place] tab, l 14:55: Dawson Route: PO, Her braden 00 Pu Drug form: TAB, ONCE, Priority: STAT, Start date: 09/18/11 9:55:00, Stop date: 09/18/11 9:55:00 magnesium 2011-0 No Hughes-Jason 400 mg, 1 Memoria oxide 3-30 [place] tab, l 14:55: Dawson Route: PO, Her braden 00 Pu Drug form: TAB, ONCE, Priority: STAT, Start date: 09/18/11 9:55:00, Stop date: 09/18/11 9:55:00 magnesium 2011-0 No Hughes-Jason 400 mg, 1 Memoria oxide 3-30 [place] tab, l 14:55: Dawson Route: PO, Her braden 00 Pu Drug form: TAB, ONCE, Priority: STAT, Start date: 09/18/11 9:55:00, Stop date: 09/18/11 9:55:00 magnesium 2011-0 No Hughes-Jason 400 mg, 1 Memoria oxide 3-30 [place] tab, l 14:55: Dawson Route: PO, Her rbaden 00 Pu Drug form: TAB, ONCE, Priority: STAT, Start date: 09/18/11 9:55:00, Stop date: 09/18/11 9:55:00 Insulin 2011-0 No Hughes-Jason 8 unit, Mem oria regular 3-30 [place] 0.08 mL, l 14:22: Dawson Route: Vin 00 Pu SUB-Q, Drug form: SOLN, ONCE, Priority: STAT, Start date: 09/18/11 9:22:00, Stop date: 09/18/11 9:22:00 Insulin 2012-0 No Hughes-Jason 8 unit, Mem oria regular 3-30 [place] 0.08 mL, l 14:22: Dawson Route: [place] Pu SUB-Q, Drug form: SOLN, ONCE, Priority: STAT, Start date: 09/18/11 9:22:00, Stop date: 09/18/11 9:22:00 Insulin 2012-0 No Hughes-Jason 8 unit, Mem oria regular 3-30 [place] 0.08 mL, l 14:22: Dawson Route: Vin 00 Pu SUB-Q, Drug form: SOLN, ONCE, Priority: STAT, Start date: 09/18/11 9:22:00, Stop date: 09/18/11 9:22:00 Insulin 2012-0 No Hughes-Jason 8 unit, Mem oria regular 3-30 [place] 0.08 mL, l 14:22: Dawson Route: Pu SUB-Q, Drug form: SOLN, ONCE, Priority: STAT, Start date: 09/18/11 9:22:00, Stop date: 09/18/11 9:22:00 Lactated 2012-0 No Hughes-Jason 1,000 mL, Memoria Ringers 3-30 [place] Rate: l (Bolus) IV 14:16: Dawson 1,000 He rmann 1,000 mL 00 Pu ml/hr, Infuse over: 1 hr, Route: IV, Total Volume: 1,000, Bolus Dose, Priority: STAT, Start date: 09/18/11 9:16:00, Duration: 1 doses or times, Stop date: 09/18/11 10:15:00 Lactated 2012-0 No Hughes-Jason 1,000 mL, Memoria Ringers 3-30 [place] Rate: l (Bolus) IV 14:16: Dawson 1,000 He rmann 1,000 mL 00 Pu ml/hr, Infuse over: 1 hr, Route: IV, Total Volume: 1,000, [place] Dose, Priority: STAT, Start date: 09/18/11 9:16:00, Duration: 1 doses or times, Stop date: 09/18/11 10:15:00 Lactated 2012-0 No Hughes-Jason 1,000 mL, Memoria Ringers 3-30 [place] Rate: l (Bolus) IV 14:16: Dawson 1,000 He rmann 1,000 mL 00 Pu ml/hr, Infuse over: 1 hr, Route: IV, Total Volume: 1,000, [place] Dose, Priority: STAT, Start date: 09/18/11 9:16:00, Duration: 1 doses or times, Stop date: 09/18/11 10:15:00 Lactated 2012-0 No Hughes-Jason 1,000 mL, Memoria Ringers 3-30 [place] Rate: l (Bolus) IV 14:16: Dawson 1,000 He rmann 1,000 mL 00 Pu ml/hr, Infuse over: 1 hr, Route: IV, Total Volume: 1,000, [place] Dose, Priority: STAT, Start date: 09/18/11 9:16:00, Duration: 1 doses or times, Stop date: 09/18/11 10:15:00 Sodium 2012-0 No Hughes-Jason 1,000 mL, Me moria Chloride 3-30 [place] Rate: l 0.9% 14:06: Dawson 1,000 [place] (Bolus) IV 00 Pu ml/hr, 1000 mL Infuse over: 1 hr, Route: IV, kg, Total Volume: 1,000, [place]us Dose, Priority: STAT, Start date: 09/18/11 9:06:00, Duration: 1 doses or times, Stop date: 09/18/11 10:05:00 Sodium 2012-0 No Hughes-Jason 1,000 mL, Me moria Chloride 3-30 [place] Rate: l 0.9% 14:06: Dawson 1,000 Vin (Bolus) IV 00 Pu ml/hr, 1000 mL Infuse over: 1 hr, Route: IV, kg, Total Volume: 1,000, [place]us Dose, Priority: STAT, Start date: 09/18/11 9:06:00, Duration: 1 doses or times, Stop date: 09/18/11 10:05:00 Sodium 2012-0 No Hughes-Jason 1,000 mL, Me moria Chloride 3-30 [place] Rate: l 0.9% 14:06: Dawson 1,000 Vin (Bolus) IV 00 Pu ml/hr, 1000 mL Infuse over: 1 hr, Route: IV, kg, Total Volume: 1,000, [place]us Dose, Priority: STAT, Start date: 09/18/11 9:06:00, Duration: 1 doses or times, Stop date: 09/18/11 10:05:00 Sodium 2012-0 No Hughes-Jason 1,000 mL, Me moria Chloride 3-30 [place] Rate: l 0.9% 14:06: Dawson 1,000 Vin (Bolus) IV 00 Pu ml/hr, 1000 mL Infuse over: 1 hr, Route: IV, kg, Total Volume: 1,000, [place]us Dose, Priority: STAT, Start date: 09/18/11 9:06:00, Duration: 1 doses or times, Stop date: 09/18/11 10:05:00 sulfamethox 2012-0 Yes Substituti Memoria azole 3-30 on Allowed l 14:04: [place] 58 sulfamethox 2012-0 Yes Substituti Memoria azole 3-30 on Allowed l 14:04: Vin 58 sulfamethox 2012-0 Yes Substituti Memoria azole 3-30 on Allowed l 14:04: Vin 58 sulfamethox 2012-0 Yes Substituti Memoria azole 3-30 on Allowed l 14:04: [place] 58 Sodium 2012-0 No Hughes-Jason 1,000 mL, Me moria Chloride 3-30 [place] Rate: l 0.9% 13:56: Dawson 1,000 [place] (Bolus) IV 00 Pu ml/hr, 1000 mL Infuse over: 1 hr, Route: IV, kg, Total Volume: 1,000, [place]us Dose, Priority: STAT, Start date: 09/18/11 8:56:00, Duration: 1 doses or times, Stop date: 09/18/11 9:55:00 Sodium 2012-0 No Hughes-Jason 1,000 mL, Me moria Chloride 3-30 [place] Rate: l 0.9% 13:56: Dawson 1,000 Vin (Bolus) IV 00 Pu ml/hr, 1000 mL Infuse over: 1 hr, Route: IV, kg, Total Volume: 1,000, [place] Dose, Priority: STAT, Start date: 09/18/11 8:56:00, Duration: 1 doses or times, Stop date: 09/18/11 9:55:00 Sodium 2012-0 No Hughes-Jason 1,000 mL, Me moria Chloride 3-30 [place] Rate: l 0.9% 13:56: Dawson 1,000 [place] (Bolus) IV 00 Pu ml/hr, 1000 mL Infuse over: 1 hr, Route: IV, kg, Total Volume: 1,000, [place] Dose, Priority: STAT, Start date: 09/18/11 8:56:00, Duration: 1 doses or times, Stop date: 09/18/11 9:55:00 Sodium 2012-0 No Hughes-Jason 1,000 mL, Me moria Chloride 3-30 [place] Rate: l 0.9% 13:56: Dawson 1,000 Vin (Bolus) IV 00 Pu ml/hr, 1000 mL Infuse over: 1 hr, Route: IV, kg, Total Volume: 1,000, [place] Dose, Priority: STAT, Start date: 09/18/11 8:56:00, Duration: 1 doses or times, Stop date: 09/18/11 9:55:00 clindamycin 2012-0 No Eber L 300 mg, 2 Memoria 3-21 Anabelle cap, l 21:00: Route: PO, [place] 00 Drug form: CAP, Q8H, Start date: 09/09/11 16:00:00, Duration: 30 day, Stop date: 10/09/11 8:00:00 clindamycin 2012-0 No Eber L 300 mg, 2 Memoria 3-21 Anabelle cap, l 21:00: Route: PO, [place] 00 Drug form: CAP, Q8H, Start date: [...] day, Stop date: 10/09/11 8:00:00 Colace 100 2012-0 Yes Luna 100 mg, 1 Memoria mg oral 3-21 Amelia cap, PO, l capsule 18:47: [place] BID, 60 Her braden 19 cap, Substituti [...] 3-21 Amelia cap, PO, l capsule 18:47: [place] BID, 60 Her braden 19 cap, Substituti on Allowed, CAP clindamycin 2011-0 Yes Luna 300 mg, 2 Memoria 150 mg oral 3-21 Amelia cap, PO, l capsule 18:46: Zeeshan Q8H, 30 Her braden 55 cap, Substituti on Allowed, CAP clindamycin 2011-0 Yes Luna 300 mg, 2 Memoria 150 mg oral 3-21 Amelia cap, PO, l capsule 18:46: [place] Q8H, 30 Her braden 55 cap, Substituti on Allowed, CAP clindamycin 2011-0 Yes Luan 300 mg, 2 Memoria 150 mg oral 3-21 Amelia cap, PO, l capsule 18:46: Zeeshan Q8H, 30 Her braden 55 cap, Substituti on Allowed, CAP clindamycin 2011-0 Yes Luna 300 mg, 2 Memoria 150 mg oral 3-21 Maelia cap, PO, l capsule 18:46: Zeeshan Q8H, 30 Her braden 55 cap, Substituti on Allowed, CAP [place] 2011-0 Yes Luna 1 tab, PO, Memoria 10/325 oral 3-21 Amelia Q4H, PRN, l tablet 18:46: Zeeshan 30 tab, Herm naeem 36 Pain, Substituti on Allowed, Maintenanc e, TAB [place] Yes Luna 1 tab, PO, Memoria 10/325 oral 3-21 Amelia Q4H, PRN, l tablet 18:46: Zeeshan 30 tab, Herm naeem 36 Pain, Substituti on Allowed, Maintenanc e, TAB [place] Yes Luna 1 tab, PO, Memoria 10/325 oral 3-21 Amelia Q4H, PRN, l tablet 18:46: Zeeshan 30 tab, Herm naeem 36 Pain, Substituti on Allowed, Maintenanc e, TAB [place] Yes Luna 1 tab, PO, Memoria 10/325 oral 3-21 Amelia Q4H, PRN, l tablet 18:46: [place] 30 tab, Herm naeem 36 Pain, Substituti on Allowed, Maintenanc e, TAB [place] No Hollie Donavan 1 tab, Mendoza janice 10/325 oral 3-21 Mahi Route: PO, l tablet 09:00: Drug Form: Nidia nn 00 TAB, Q4H, Start date: 09/09/11 4:00:00, Duration: 30 day, Stop date: 10/09/11 0:00:00 [place] No Hollie Donavan 1 tab, Mendoza janice 10/325 oral 3-21 Mahi Route: PO, l tablet 09:00: Drug Form: Nidia nn 00 TAB, Q4H, Start date: 09/09/11 4:00:00, Duration: 30 day, Stop date: 10/09/11 0:00:00 [place] No Hollie Donavan 1 tab, Mendoza janice 10/325 oral 3-21 Mahi Route: PO, l tablet 09:00: Drug Form: Nidia nn 00 TAB, Q4H, Start date: 09/09/11 4:00:00, Duration: 30 day, Stop date: 10/09/11 0:00:00 [place] 0 No Hollie Donavan 1 tab, Mendoza [...] 3-19 Omidvar tab, l 15:30: Route: PO, [place] 00 Drug form: TAB, Daily, Start date: 09/07/11 10:30:00, Duration: 30 day, Stop date: 10/07/11 9:00:00 enalapril 2011-0 No [place] 5 mg, 1 Mem oria 3-19 Omidvar tab, l 15:30: Route: PO, [place] Drug form: TAB, Daily, Start date: 09/07/11 10:30:00, Duration: 30 day, Stop date: 10/07/11 9:00:00 enalapril 2011-0 No [place] 5 mg, 1 Mem oria 3-19 Omidvar tab, l 15:30: Route: PO, [place] 00 Drug form: TAB, Daily, Start date: [...] Josefina 0.1 mL, l 14:19: Gavin Route: [place] 00 IVP, Drug form: INJ, Q2MIN, PRN Narcotic Reversal, Start date: 09/07/11 9:19:00, Duration: 8 doses or times, Stop date: Limited # of times ondansetron No Gayle 4 mg, 2 Memoria 3-19 Josefina mL, Route: l 14:19: [place] IVP, Drug Jake n 00 form: INJ, [...] Josefina Route: PO, l one 325 14:19: [place] Drug Form: He rmann mg-10 mg/15 00 SOLN, Q4H, mL oral PRN Pain solution Score 4-6, Start date: 09/07/11 9:19:00, Duration: 1 day, Stop date: 09/08/11 8:00:00 flumazenil 2011-0 No Gayle 0.2 mg, 2 Memoria 3-19 Josefina mL, Route: l 14:19: [place] IVP, Drug Jake n 00 form: INJ, PRN, PRN Benzodiaze pine Reversal, Initial dose, Start date: 09/07/11 9:19:00, Duration: 1 day, Stop date: 09/08/11 9:18:00 naloxone 2011-0 No Gayle 0.04 mg, Me moria 3-19 Josefina 0.1 mL, l 14:19: [place] Route: [place] 00 IVP, Drug form: INJ, Q2MIN, PRN Narcotic Reversal, Start date: 09/07/11 9:19:00, Duration: 8 doses or times, Stop date: Limited # of times ondansetron No Gayle 4 mg, 2 Memoria 3-19 Josefina mL, Route: l 14:19: [place] IVP, Drug Jake n 00 form: INJ, ONCE, PRN Nausea & Vomiting, Start date: 09/07/11 9:19:00 hydromorpho 0 No Gayle 0.5 mg, Memoria ne 3-19 Josefina 0.25 mL, l 14:19: [place] Route: [place] 00 IVP, Drug form: INJ, Q5Min, PRN Pain Score 4-6, Start date: 09/07/11 9:19:00, Duration: 5 doses or times, Stop date: Limited # of times acetaminoph 2011-0 No Gayle 15 mL, M emoria en-hydrocod 3-19 Josefina Route: PO, l one 325 14:19: [place] Drug Form: He rmann mg-10 mg/15 00 SOLN, Q4H, mL oral PRN Pain solution Score 4-6, Start date: 09/07/11 9:19:00, Duration: 1 day, Stop date: 09/08/11 8:00:00 flumazenil No Gayle 0.2 mg, 2 Memoria 3-19 Josefina mL, Route: l 14:19: [place] IVP, Drug Jake n 00 form: INJ, PRN, PRN Benzodiaze pine Reversal, Initial dose, Start date: 09/07/11 9:19:00, Duration: 1 day, Stop date: 09/08/11 9:18:00 naloxone No Gayle 0.04 mg, Me moria 3-19 Josefina 0.1 mL, l 14:19: Gavin Route: [place] 00 IVP, Drug form: INJ, Q2MIN, PRN [...] ne 3-19 Josefina 0.25 mL, l 14:19: [place] Route: [place] 00 IVP, Drug form: INJ, Q5Min, PRN Pain Score 4-6, Start date: 09/07/11 9:19:00, Duration: 5 doses or times, Stop date: Limited # of times acetaminoph No Gayle 15 mL, M emoria en-hydrocod 3-19 Josefina Route: PO, l one 325 14:19: [place] Drug Form: He rmann mg-10 mg/15 00 SOLN, Q4H, mL oral PRN Pain solution Score 4-6, Start date: 09/07/11 9:19:00, Duration: 1 day, Stop date: 09/08/11 8:00:00 flumazenil 0 No Gayle 0.2 mg, 2 Memoria 3-19 Josefina mL, Route: l 14:19: [place] IVP, Drug Jake n 00 form: INJ, PRN, PRN Benzodiaze pine Reversal, Initial dose, Start date: 09/07/11 9:19:00, Duration: 1 day, Stop date: 09/08/11 9:18:00 naloxone 2011- No Gayle 0.04 mg, Me moria 3-19 Josefina 0.1 mL, l 14:19: [place] Route: Vin 00 IVP, Drug form: INJ, Q2MIN, PRN Narcotic Reversal, Start date: 09/07/11 9:19:00, Duration: 8 doses or times, Stop date: Limited # of times ondansetron No Gayle 4 mg, 2 Memoria 3-19 Josefina mL, Route: l 14:19: [place] IVP, Drug Jake n 00 form: INJ, ONCE, PRN Nausea & Vomiting, Start date: 09/07/11 9:19:00 hydromorpho No Gayle 0.5 mg, Memoria ne 3-19 Josefina 0.25 mL, l 14:19: [place] Route: Vin 00 IVP, Drug form: INJ, [...] Memoria 3-19 Arias Route: l 13:31: IVPB, [place] 00 ONCE, Start date: 09/07/11 8:31:00, Stop date: 09/07/11 8:31:00 clindamycin 2011-0 No Maximo R 600 mg, Memoria 3-19 Arias Route: l 13:31: IVPB, [place] 00 ONCE, Start date: 09/07/11 8:31:00, Stop date: 09/07/11 8:31:00 clindamycin 2011-0 No Maximo R 600 mg, Memoria 3-19 Arias Route: l 13:31: IVPB, [place] 00 ONCE, Start date: 09/07/11 8:31:00, Stop date: 09/07/11 8:31:00 clindamycin 2011-0 No Maximo R 600 mg, Memoria 3-19 Arias Route: l 13:31: IVPB, [place] 00 ONCE, Start date: 09/07/11 8:31:00, Stop [...] 30 day, Stop date: 10/06/11 8:24:00 normal 2011-0 No Yury W 1,000 mL, M emoria saline 0.9% 3-18 Adeline Rate: 100 l IV 1000 mL 13:25: ml/hr, Nidia nn 00 Infuse over: 10 hr, Route: IV, kg, Total Volume: 1,000, Start date: 09/06/11 8:25:00, Duration: 30 day, Stop date: 10/06/11 8:24:00 normal 2011-0 No Yury W 1,000 mL, M emoria saline 0.9% 3-18 Adeline Rate: 100 l IV 1000 mL 13:25: ml/hr, Nidia nn 00 Infuse over: 10 hr, Route: IV, kg, Total Volume: 1,000, Start date: 09/06/11 8:25:00, Duration: 30 day, Stop date: 10/06/11 8:24:00 normal 2011-0 No Yury W 1,000 mL, [...] 3-17 Wong tab, l 04:00: Route: PO, [place] 00 Drug form: ECTAB, Daily, PRN Constipati on, Priority: NOW, Start date: 09/04/11 23:00:00, Duration: 30 day, Stop date: 10/04/11 22:59:00 Dulcolax 2012-0 No Charbel A 10 mg, 2 M emoria Laxative 3-17 Wong tab, l 04:00: Route: PO, [place] 00 Drug form: ECTAB, Daily, PRN Constipati [...] Duration: 30 day, Stop date: 10/04/11 18:10:00 [place] 2011-0 No Mahammad 1 tab, Memori a 10/325 oral 3-16 Simeon Route: PO, l tablet 17:00: Dez Drug Form: Tyrel rmann 00 TAB, Q4H, Start date: 09/04/11 12:00:00, Duration: 30 day, Stop date: 10/04/11 8:00:00 [place] 2011-0 No Mahammad 1 tab, Memori a 10/325 oral 3-16 Simeon Route: PO, l tablet 17:00: Dez Drug Form: Tyrel rmann 00 TAB, Q4H, Start date: 09/04/11 12:00:00, Duration: 30 day, Stop date: 10/04/11 8:00:00 [place] 2011-0 No Mahammad 1 tab, Memori a 10/325 oral 3-16 Simeon Route: PO, l tablet 17:00: Dez Drug Form: Tyrel rmann 00 TAB, Q4H, Start date: 09/04/11 12:00:00, Duration: 30 day, Stop date: 10/04/11 8:00:00 [place] 2011-0 No Mahammad 1 tab, Memori a [...] Kavon mL, Route: l 14:50: IVP, Drug [place] 00 form: INJ, ONCE, PRN Nausea & Vomiting, Start date: 09/04/11 9:50:00, Duration: 1 doses or times, Stop date: Limited # of times ropivacaine 2011-0 No Rosalino Dosing: Memoria 0.2% in NS 3-16 Kavon 10cc/hr, l - site 1 14:50: Route: [place] 400 mL 00 NERVE BLOCK, Start date: 09/04/11 9:50:00 400 mL, Duration: 30 day, Stop date: 10/04/11 9:49:00 naloxone 2012-0 No Rosalino 0.04 mg, Me moria 3-16 Kavon 0.1 mL, l 14:50: Route: [place] 00 IVP, Drug form: INJ, Q2MIN, PRN Narcotic Reversal, Start date: 09/04/11 9:50:00, Duration: 30 day, Stop date: 10/04/11 9:49:00 ondansetron 2012-0 No Rosalino 4 mg, 2 Memoria 3-16 Kavon mL, Route: l 14:50: IVP, Drug form: INJ, ONCE, PRN Nausea & Vomiting, Start date: 09/04/11 9:50:00, Duration: 1 doses or times, Stop date: Limited # of times ropivacaine 2011-0 No Rosalino Dosing: Memoria 0.2% in NS 3-16 Kavon 10cc/hr, l - site 1 14:50: Route: [place] 400 mL 00 NERVE BLOCK, Start date: [...] 30 day, Stop date: 10/04/11 9:49:00 ondansetron No Rosalino 4 mg, 2 Memoria 3-16 Kavon mL, Route: l 14:50: IVP, Drug [place] 00 form: INJ, ONCE, PRN Nausea & Vomiting, Start date: 09/04/11 9:50:00, Duration: 1 doses or times, Stop date: Limited # of times ropivacaine No Rosalino Dosing: Memoria 0.2% in NS 3-16 Kavon 10cc/hr, l - site 1 14:50: Route: [place] 400 mL 00 NERVE BLOCK, Start date: 09/04/11 9:50:00 400 mL, Duration: 30 day, Stop date: 10/04/11 9:49:00 naloxone No Rosalino 0.04 mg, Me moria 3-16 Kavon 0.1 mL, l 14:50: Route: Vin 00 IVP, Drug form: INJ, Q2MIN, PRN Narcotic Reversal, Start date: 09/04/11 9:50:00, Duration: 30 day, Stop date: 10/04/11 9:49:00 [place] 2011-0 No Bism[place] 1 tab, Memoria 10/325 oral 3-16 Omidvar Route: PO, l tablet 14:49: Drug Form: Nidia nn 00 TAB, Q4H, PRN Pain, Start date: 09/04/11 9:49:00, Stop date: 10/04/11 9:48:00 [place] 2011-0 No [place] 1 tab, Memoria 10/325 oral 3-16 Omidvar Route: PO, l tablet 14:49: Drug Form: Nidia nn 00 TAB, Q4H, PRN Pain, Start date: 09/04/11 9:49:00, Stop date: 10/04/11 9:48:00 [place] 2011-0 No [place] 1 tab, Memoria 10/325 oral 3-16 Omidvar Route: PO, l tablet 14:49: Drug Form: Nidia nn 00 TAB, Q4H, PRN Pain, Start date: 09/04/11 9:49:00, Stop date: 10/04/11 9:48:00 [place] 0 No [place] 1 tab, Memoria 10/325 [...] Stop date: 09/05/11 8:36:00 hydromorpho 2011-0 No Roslaino 0.5 mg, Memoria ne 3-16 Kavon 0.25 [...] 3-16 Kavon 0.25 mL, l 13:37: Route: [place] 00 IVP, Drug form: INJ, Q5Min, PRN [...] Beck 0.1 mL, l 13:37: [place]den Route: [place] 00 IVP, Drug form: INJ, Q2MIN, PRN Narcotic Reversal, Start date: 09/04/11 8:37:00, Duration: 8 doses or times, Stop date: Limited # of times meperidine 0 No Hollie 12.5 mg, Me moria 3-16 Beck 0.5 mL, l 13:37: [place]den Route: [place] 00 IVP, Drug form: INJ, Q30Min, PRN Other -See Comment, For shivering, Start date: 09/04/11 8:37:00, Duration: 2 doses or times, Stop date: Limited # of times flumazenil 0 No Hollie 0.2 mg, 2 M emoria [...] Beck 0.5 mL, l 13:37: [place]den Route: [place] IVP, Drug form: INJ, Q30Min, PRN Other -See Comment, For shivering, Start date: 09/04/11 8:37:00, Duration: 2 doses or times, Stop date: Limited # of times flumazenil 0 No Hollie 0.2 mg, 2 M emoria [...] 3-15 Anabelle mL, Route: l 16:00: IVPB, [place] 00 [id number], Start date: 09/03/11 11:00:00, Duration: [...] date: 09/03/11 8:39:00, Stop date: 09/03/11 8:39:00 [place] 5/325 2011-0 No Rosalino 1 tab, M emoria oral tablet - Kavon Route: PO, l 05:00: Drug Form: [place] 00 TAB, Q4H, Start date: 09/03/11 0:00:00, Duration: 30 day, Stop date: 10/02/11 20:00:00 [place] 5/325 2011-0 No Rosalino 1 tab, M emoria oral tablet 09-02 Kavon Route: PO, l 05:00: Drug Form: [place] 00 TAB, Q4H, Start date: 09/03/11 0:00:00, Duration: 30 day, Stop date: 10/02/11 20:00:00 Ul[place] 5/325 2011-0 No Rosalino 1 tab, M emoria oral tablet - Kavon Route: PO, l 05:00: Drug Form: [place] 00 TAB, Q4H, Start date: 09/03/11 0:00:00, Duration: 30 day, Stop date: 10/02/11 20:00:00 [place] 5/325 2011-0 No Rosalino 1 tab, M emoria oral tablet - Kavon Route: PO, l 05:00: Drug Form: [place] 00 TAB, Q4H, Start date: 09/03/11 0:00:00, [...] 3-14 Anabelle cap, l 17:00: Route: PO, [place] 00 Drug form: ERCAP, Daily, Give qAM [...] 3-14 Anabelle cap, l 17:00: Route: PO, [place] 00 Drug form: ERCAP, Daily, Give qAM after today's dose., Start date: 09/02/11 12:00:00, Duration: 30 day, Stop date: 10/02/11 9:00:00 Effexor XR 2012-0 No Eber L 75 mg, 1 Memoria 3-14 Anabelle cap, l 17:00: Route: PO, Vin 00 Drug form: ERCAP, Daily, Give qAM after today's dose., Start date: 09/02/11 12:00:00, Duration: 30 day, Stop date: 10/02/11 9:00:00 [place] 5/325 2011-0 No Rosalino 1 tab, M emoria oral tablet 09-01 [facility] Route: PO, l 16:25: Drug Form: Vin 00 TAB, Q4H, PRN Pain, Start date: 09/02/11 11:25:00, Duration: 30 day, Stop date: 10/02/11 11:24:00 [place] 5/325 2011-0 No Rosalino 1 tab, M emoria oral tablet 09-01 [facility] Route: PO, l 16:25: Drug Form: [place] 00 TAB, Q4H, PRN Pain, Start date: 09/02/11 11:25:00, Duration: 30 day, Stop date: 10/02/11 11:24:00 [place] 5/325 2011-0 No Rosalino 1 tab, M emoria oral tablet 09-01 [facility] Route: PO, l 16:25: Drug Form: Vin 00 TAB, Q4H, PRN Pain, Start date: 09/02/11 11:25:00, Duration: 30 day, Stop date: 10/02/11 11:24:00 [place] 5/325 2011-0 No Rosalino 1 tab, M emoria oral tablet 09-01 [facility] Route: PO, l 16:25: Drug Form: Vin [...] Omidvar mL, Route: l 16:15: IVPB, Drug [place] 00 form: INJ, ONCE, Start date: 09/02/11 11:15:00, Stop date: 09/02/11 11:15:00 magnesium 2011-0 No Bismark 4 gm, 50 Me moria sulfate 3-14 Omidvar mL, Route: l 16:15: IVPB, Drug [place] form: INJ, ONCE, Start date: 09/02/11 11:15:00, Stop date: 09/02/11 11:15:00 Lovenox 2011-0 No Missael 40 mg, 0.4 Mem oria 3-14 Movva mL, Route: l 14:00: SUB-Q, Vin Drug form: INJ, Daily, Start date: 09/02/11 9:00:00, Duration: 30 day, Stop date: 10/01/11 9:00:00 vancomycin 2011-0 No Eber L 1 gm, Memoria 3-14 Anabelle Route: l 14:00: IVPB, Drug [place] 00 form: INJ, [id number], Start date: 09/02/11 9:00:00, Duration: 30 day, Stop date: 10/01/11 21:00:00 Lovenox 2011-0 No Missael 40 mg, 0.4 Mem oria 3-14 Movva mL, Route: l 14:00: SUB-Q, [place] Drug form: INJ, Daily, Start date: 09/02/11 9:00:00, Duration: 30 day, Stop date: 10/01/11 9:00:00 vancomycin 2011-0 No Eber L 1 gm, Memoria 3-14 Anabelle Route: l 14:00: IVPB, Drug Vin 00 form: INJ, [id number], Start date: 09/02/11 9:00:00, Duration: 30 day, Stop date: 10/01/11 21:00:00 Lovenox 2012-0 No Missael 40 mg, 0.4 Mem oria 3-14 Movva mL, Route: l 14:00: SUB-Q, [place] Drug form: INJ, Daily, Start date: 09/02/11 9:00:00, Duration: 30 day, Stop date: 10/01/11 9:00:00 vancomycin 2011-0 No Eber L 1 gm, Memoria 3-14 Anabelle Route: l 14:00: IVPB, Drug form: INJ, [id number], Start date: 09/02/11 9:00:00, Duration: 30 day, Stop date: 10/01/11 21:00:00 Lovenox 2011-0 No Missael 40 mg, 0.4 Mem oria 3-14 Movva mL, Route: l 14:00: SUB-Q, Vin 00 Drug form: INJ, Daily, Start date: 09/02/11 9:00:00, Duration: 30 day, Stop date: 10/01/11 9:00:00 vancomycin 2011-0 No Eber L 1 gm, Memoria 3-14 Anabelle Route: l 14:00: IVPB, Drug form: INJ, [id number], Start date: 09/02/11 9:00:00, Duration: 30 day, Stop date: 10/01/11 21:00:00 clindamycin 2011-0 No Eber L 600 mg, 4 Memoria (SCIP) 3-14 Anabelle mL, Route: l 10:00: IVPB, [place] 00 [id number], Start date: 09/02/11 5:00:00, Duration: [...] 3-14 Anabelle mL, Route: l 10:00: IVPB, [place] 00 [id number], Start date: 09/02/11 5:00:00, Duration: [...] Brandon mL, Route: l 04:00: Connally IVPB, [place] 00 [id number], Start date: 09/01/11 23:00:00, Duration: 3 doses or times, Stop date: 09/02/11 15:00:00 insulin 2011-0 No B[place] 15 unit, Mendoza janice isophane-TRANSFER COORDINATOR 3-14 Omidvar 0.15 mL, l H 02:00: Route: [place] 00 SUB-Q, Drug form: INJ, Q12H, Start date: 09/01/11 21:00:00, Stop date: 10/01/11 9:00:00 insulin 2012-0 No [place] 15 unit, Mendoza janice isophane-TRANSFER COORDINATOR 3-14 Omidvar 0.15 mL, l H 02:00: Route: [place] 00 SUB-Q, Drug form: INJ, Q12H, Start date: 09/01/11 21:00:00, Stop date: 10/01/11 9:00:00 insulin 2011-0 No [place] 15 unit, Mendoza janice isophane-TRANSFER COORDINATOR 3-14 Omidvar 0.15 mL, l H 02:00: Route: Vin 00 SUB-Q, Drug form: INJ, Q12H, Start date: 09/01/11 21:00:00, Stop date: 10/01/11 9:00:00 insulin 2011-0 No [place] 15 unit, Mendoza janice isophane-TRANSFER COORDINATOR 3-14 Omidvar 0.15 mL, l H 02:00: Route: [place] 00 SUB-Q, Drug form: INJ, Q12H, Start date: 09/01/11 21:00:00, Stop date: 10/01/11 9:00:00 labetalol No Mariaelena-Corea 5 mg, Me moria 3-14 Barbra Route: l 01:07: Feliciano IVP, [place] 00 Q5Min, PRN Elevated BP, Start date: 09/01/11 20:07:00, Duration: 5 doses or times, Stop date: Limited # of times hydrALAZINE No Mariaelena-Corea 5 mg, Memoria 3-14 Barbra Route: l 01:07: Feliciano IVP, [place] 00 Q5Min, PRN Elevated BP, Start date: 09/01/11 20:07:00, Duration: 4 doses or times, Stop date: Limited # of times hydromorpho No Mariaelena-Corea 0.5 mg, Memoria ne 3-14 Barbra Route: l 01:07: Feliciano IVP, [place] 00 Q5Min, PRN Pain Score 4-6, Start [...] Barbra Route: l 01:07: Feliciano IVP, ONCE, [place] 00 PRN Nausea & Vomiting, Start date: 09/01/11 20:07:00 labetalol No Mariaelena-Corea 5 mg, Me moria 3-14 Barbra Route: l 01:07: Feliciano IVP, [place] 00 Q5Min, PRN Elevated BP, Start date: [...] 3-14 Barbra Route: l 01:07: Feliciano IVP, [place] 00 Q5Min, PRN Pain Score 4-6, Start date: 09/01/11 20:07:00, Duration: 5 doses or times, Stop date: Limited # of times naloxone No Mariaelena-Corea 0.04 mg, Memoria 3-14 Barbra Route: l 01:07: Feliciano IVP, [place] 00 Q2MIN, PRN Narcotic Reversal, Start date: 09/01/11 20:07:00, Duration: 8 doses or times, Stop date: Limited # of times flumazenil No Mariaelena-Corea 0.2 mg, Memoria 3-14 Barbra Route: l 01:07: Feliciano IVP, PRN, [place] 00 PRN Benzodiaze pine Reversal, Initial dose, Start date: 09/01/11 20:07:00, Duration: 30 day, Stop date: 10/01/11 20:06:00 ondansetron 0 No Mariaelena-Corea 4 mg, Memoria 3-14 Barbra [...] 3-14 Barbra Route: l 01:07: Feliciano IVP, [place] 00 Q5Min, PRN Elevated BP, Start date: 09/01/11 20:07:00, Duration: 4 doses or times, Stop date: Limited # of times hydromorpho No Mariaelena-Corea 0.5 mg, Memoria ne 3-14 Barbra Route: l 01:07: Feliciano IVP, [place] 00 Q5Min, PRN Pain Score 4-6, Start [...] 30 day, Stop date: 10/01/11 20:06:00 ondansetron 0 No Mariaelena-Corea 4 mg, Memoria 3-14 Barbra Route: l 01:07: Feliciano IVP, ONCE, [place] 00 PRN Nausea & Vomiting, Start date: 09/01/11 20:07:00 labetalol No Mariaelena-Corea 5 mg, Me moria 3-14 Barbra Route: l 01:07: Feliciano IVP, Vin 00 Q5Min, PRN Elevated BP, Start date: 09/01/11 20:07:00, Duration: 5 doses or times, Stop date: Limited # of times hydrALAZINE No Mariaelena-Corea 5 mg, Memoria 3-14 Barbra Route: l 01:07: Feliciano IVP, [place] 00 Q5Min, PRN Elevated BP, Start date: 09/01/11 20:07:00, Duration: 4 doses or times, Stop date: Limited # of times hydromorpho No Mariaelena-Corea 0.5 mg, Memoria ne 3-14 Barbra Route: l 01:07: Feliciano IVP, [place] 00 Q5Min, PRN Pain Score 4-6, Start date: 09/01/11 20:07:00, Duration: 5 doses or times, Stop date: Limited # of times naloxone No Mariaelena-Corea 0.04 mg, Memoria 3-14 Barbra Route: l 01:07: Feliciano IVP, [place] 00 Q2MIN, PRN Narcotic Reversal, Start date: [...] 01:00: IVPB, Drug Vin 00 form: INJ, [id number], Start date: 09/01/11 20:00:00, Duration: 30 day, Stop date: 10/01/11 8:00:00 vancomycin 2011-0 No Mele 1 gm, Mem oria 3-14 Gauvain Route: l 01:00: IVPB, Drug [place] 00 form: INJ, [id number], Start date: 09/01/11 20:00:00, Duration: 30 day, Stop date: 10/01/11 8:00:00 vancomycin 2011-0 No Mele 1 gm, Mem oria 3-14 Gauvain Route: l 01:00: IVPB, Drug [place] 00 form: INJ, [id number], Start date: 09/01/11 20:00:00, Duration: 30 day, Stop date: 10/01/11 8:00:00 vancomycin 2011-0 No Mele 1 gm, Mem oria 3-14 Gauvain Route: l 01:00: IVPB, Drug [place] 00 form: INJ, [id number], Start date: 09/01/11 20:00:00, Duration: 30 day, Stop date: 10/01/11 8:00:00 Lactated 2011-0 No Charbel A 1,000 mL, Memoria Ringers IV 3-14 Wong Rate: 125 l 1,000 mL 00:55: ml/hr, [place] 00 Infuse over: 8 hr, Route: IV, Dosing Weight 68.2 kg, Total Volume: 1,000, Start date: 09/01/11 19:55:00, Duration: 30 day, Stop date: 10/01/11 19:54:00 Lactated 2011-0 No Charbel A 1,000 mL, Memoria Ringers IV 3-14 Wong Rate: 125 l 1,000 mL 00:55: ml/hr, [place] 00 Infuse over: 8 hr, Route: IV, Dosing Weight 68.2 kg, Total Volume: 1,000, Start date: 09/01/11 19:55:00, Duration: 30 day, Stop date: 10/01/11 19:54:00 Lactated 2011-0 No Charbel A 1,000 mL, Memoria Ringers IV 3-14 Wong Rate: 125 l 1,000 mL 00:55: ml/hr, [place] 00 Infuse over: 8 hr, Route: IV, Dosing Weight 68.2 kg, Total Volume: 1,000, Start date: 09/01/11 19:55:00, Duration: 30 day, Stop date: 10/01/11 19:54:00 Lactated 2011-0 No Charbel A 1,000 mL, Memoria Ringers IV 3-14 Wong Rate: 125 l 1,000 mL 00:55: ml/hr, [place] 00 Infuse over: 8 hr, Route: IV, Dosing Weight 68.2 kg, Total Volume: 1,000, Start date: 09/01/11 19:55:00, Duration: 30 day, Stop date: 10/01/11 19:54:00 vancomycin 2011-0 No Missael 1 gm, Memor ia 3-14 Movva Route: l 00:00: IVPB, Drug Vin 00 form: INJ, [id number], Start date: 09/01/11 19:00:00, Duration: 30 day, Stop date: 10/01/11 7:00:00 vancomycin 2011-0 No Missael 1 gm, Memor ia 3-14 Movva Route: l 00:00: IVPB, Drug [place] 00 form: INJ, [id number], Start date: 09/01/11 19:00:00, Duration: 30 day, Stop date: 10/01/11 7:00:00 vancomycin 2011-0 No Missael 1 gm, Memor ia 3-14 Movva Route: l 00:00: IVPB, Drug Vin 00 form: INJ, [id number], Start date: 09/01/11 19:00:00, Duration: 30 day, Stop date: 10/01/11 7:00:00 vancomycin 2011-0 No Missael 1 gm, Memor ia 3-14 Movva Route: l 00:00: IVPB, Drug [place] 00 form: INJ, [id number], Start date: 09/01/11 19:00:00, Duration: 30 day, [...] Movva Route: IM, l 23:23: Drug form: [place] PDR/INJ, PRN, PRN Blood Glucose Results, Start [...] Movva Route: IM, l 23:23: Drug form: [place] PDR/INJ, PRN, PRN Blood Glucose Results, Start [...] 3-13 Movva 0.06 mL, l 23:23: Route: [place] SUB-Q, Drug form: SOLN, TID-Before Meals, PRN Blood Glucose Results, Start date: 09/01/11 18:23:00, Duration: 30 day, Stop date: 10/01/11 18:22:00 glucagon 2012-0 No Missael 1 mg, Memoria 3-13 Movva Route: IM, l 23:23: Drug form: [place] 00 PDR/INJ, PRN, PRN Blood Glucose Results, [...] Beni mL, Route: l 21:14: IVP, Drug [place] 00 form: INJ, Q4H, PRN Severe Pain, Start date: 09/01/11 16:14:00, Stop date: 10/01/11 16:13:00 Lactated 2012-0 No Cesar 1,000 mL, Me moria Ringers IV 3-13 Manuel Selman Rate: 100 l 1,000 mL 19:03: ml/hr, [place] 00 Infuse over: 10 hr, Route: IV, Dosing Weight 68.182 kg, Total Volume: 1,000, Start date: 09/01/11 14:03:00, Duration: 30 day, Stop date: 10/01/11 14:02:00 Lactated 2012-0 No Cesar 1,000 mL, Me moria Ringers IV 3-13 Manuel Selman Rate: 100 l 1,000 mL 19:03: ml/hr, [place] 00 Infuse over: 10 hr, Route: IV, Dosing Weight 68.182 kg, Total Volume: 1,000, Start date: 09/01/11 14:03:00, Duration: 30 day, Stop date: 10/01/11 14:02:00 Lactated 2012-0 No Cesar 1,000 mL, Me moria Ringers IV 3-13 Manuel Selman Rate: 100 l 1,000 mL 19:03: ml/hr, Vin 00 Infuse over: 10 hr, Route: IV, Dosing Weight 68.182 kg, Total Volume: 1,000, Start date: 09/01/11 14:03:00, Duration: 30 day, Stop date: 10/01/11 14:02:00 Lactated 2011-0 No Cesar 1,000 mL, Me moria Ringers IV 3-13 Manuel Selman Rate: 100 l 1,000 mL 19:03: ml/hr, [place] 00 Infuse over: 10 hr, Route: IV, [...] 09/01/11 12:13:00, Stop date: 09/01/11 12:13:00 morphine 2011-0 No [place] 4 mg, 1 [...] or times, Stop date: 09/02/11 6:41:00 Insulin 2012-0 No [place] 8 unit, Memoria regular 3-13 Madden 0.08 mL, l 15:28: Gurinder Route: [place] 00 SUB-Q, Drug form: SOLN, ONCE, Priority: STAT, Start date: 09/01/11 10:28:00, Stop date: 03/13/12 10:28:00 Insulin 2012-0 No [place] 8 unit, Memoria regular 3-13 Madden 0.08 mL, l 15:28: Gurinder Route: [place] 00 SUB-Q, Drug form: SOLN, ONCE, Priority: STAT, Start date: 09/01/11 10:28:00, Stop date: 09/01/11 10:28:00 Insulin 2012-0 No [place] 8 unit, Memoria regular 3-13 Madden 0.08 mL, l 15:28: Gurinder Route: [place] 00 SUB-Q, Drug form: SOLN, ONCE, Priority: STAT, Start date: 09/01/11 10:28:00, Stop date: 09/01/11 10:28:00 Insulin 2011-0 No [place] 8 unit, Memoria regular 3-13 Madden 0.08 mL, l 15:28: Gurinder Route: Vin SUB-Q, Drug form: SOLN, ONCE, Priority: STAT, [...] Madden Rate: l 0.9% 14:53: Gurinder 1,000 [place] (Bolus) IV 00 ml/hr, 1,000 mL Infuse [...] 08-31 Cruzito Rate: l 0.9% 10:41: 1,000 [place] (Bolus) IV 00 ml/hr, 1000 mL Infuse over: 1 hr, Route: IV, Dosing Weight 68.182 kg, Total Volume: 1,000, Bolus Dose, Priority: STAT, Start date: 09/01/11 5:41:00, Duration: 1 doses or times, Stop date: 09/01/11 6:40:00 Sodium 2011-0 No Bee L 1,000 mL, M emoria Chloride 3 [place] Rate: l 0.9% 10:41: 1,000 [place] (Bolus) IV 00 ml/hr, 1000 mL Infuse over: 1 hr, Route: IV, Dosing Weight 68.182 kg, Total Volume: 1,000, Bolus Dose, Priority: STAT, Start date: 09/01/11 5:41:00, Duration: 1 doses or times, Stop date: 09/01/11 6:40:00 Sodium 2011-0 No Bee L 1,000 mL, M emoria Chloride 3- [place] Rate: l 0.9% 10:41: 1,000 Vin (Bolus) IV 00 ml/hr, 1000 mL Infuse over: 1 hr, Route: IV, Dosing Weight 68.182 kg, Total Volume: 1,000, Bolus Dose, Priority: STAT, Start date: 09/01/11 5:41:00, Duration: 1 doses or times, Stop date: 09/01/11 6:40:00 Sodium 2011-0 No Bee L 1,000 mL, M emoria Chloride 3- [place] Rate: l 0.9% 10:41: 1,000 [place] (Bolus) IV 00 ml/hr, 1000 mL Infuse over: 1 hr, Route: IV, Dosing Weight 68.182 kg, Total Volume: 1,000, Bolus Dose, Priority: STAT, Start date: 09/01/11 5:41:00, Duration: 1 doses or times, Stop date: 09/01/11 6:40:00 ondansetron 2011-0 No Bee L 4 mg, Memoria 3- [place] Route: l 09:06: IVP, Drug [place] 00 form: INJ, ONCE, Priority: STAT, Start date: 09/01/11 4:06:00, Stop date: 09/01/11 4:06:00 morphine 2011-0 No Bee L 4 mg, Mem oria Sulfate 3- [place] Route: l 09:06: IVP, ONCE, [place] 00 Priority: STAT, Start date: 09/01/11 4:06:00, Stop date: 09/01/11 4:06:00 ondansetron 2012-0 No Bee L 4 mg, Memoria 3-13 Toone Route: l 09:06: IVP, Drug [place] 00 form: INJ, ONCE, Priority: STAT, Start date: 09/01/11 4:06:00, Stop date: 09/01/11 4:06:00 morphine 2011-0 No Bee L 4 mg, Mem oria Sulfate 3-13 Cruzito Route: l 09:06: IVP, ONCE, [place] 00 Priority: STAT, Start date: 09/01/11 4:06:00, [...] No Bee L 4 mg, Memoria 3-13 Toone Route: l 09:06: IVP, Drug Vin 00 form: INJ, ONCE, Priority: STAT, Start date: 09/01/11 4:06:00, Stop date: 09/01/11 4:06:00 morphine 2011-0 No Bee L 4 mg, Mem oria Sulfate 3-13 Toone Route: l 09:06: IVP, ONCE, [place] 00 Priority: STAT, Start date: 09/01/11 4:06:00, Stop date: 09/01/11 4:06:00 Sodium 2012-0 No Bee L 1,000 mL, [...] L 1,000 mL, M emoria Chloride 08-31 Toone Rate: l 0.9% 08:42: 1,000 Vin (Bolus) IV 00 ml/hr, 1000 mL Infuse over: 1 hr, Route: IV, Dosing Weight 68.182 kg, Total Volume: 1,000, Bolus Dose, Priority: STAT, Start date: 09/01/11 3:42:00, Duration: 1 doses or times, Stop date: 09/01/11 4:41:00 Insulin 2011-0 No Bee L 8 unit, Me moria regular - [place]one 0.08 mL, l 08:30: Route: [place] 00 IVP, Drug form: SOLN, ONCE, Priority: STAT, Start date: 09/01/11 3:30:00, Stop date: 09/01/11 3:30:00 Insulin 2011-0 No Bee L 8 unit, Me moria regular - [place] 0.08 mL, l 08:30: Route: [place] 00 IVP, Drug form: SOLN, ONCE, Priority: STAT, Start date: 09/01/11 3:30:00, Stop date: 09/01/11 3:30:00 Insulin 2011-0 No Bee L 8 unit, Me moria regular 3-13 Cruzito 0.08 mL, l 08:30: Route: Vin 00 IVP, Drug form: SOLN, ONCE, Priority: STAT, Start date: 09/01/11 3:30:00, Stop date: 09/01/11 3:30:00 Insulin 2011-0 No Bee L 8 unit, Me moria regular - Cruztio 0.08 mL, l 08:30: Route: [place] 00 IVP, Drug form: SOLN, ONCE, Priority: STAT, Start date: 09/01/11 3:30:00, Stop date: 09/01/11 3:30:00 Sodium 2011-0 No Bee L 1,000 mL, M emoria Chloride 3-13 Toone Rate: l 0.9% 07:29: 1,000 [place] (Bolus) IV 00 ml/hr, 1,000 mL Infuse over: 1 hr, Route: IV, Dosing Weight 68.182 kg, Total Volume: 1,000, Bolus Dose, Priority: STAT, Start date: 09/01/11 2:29:00, Duration: 1 doses or times, Stop date: 09/01/11 3:28:00 Sodium 2011-0 No Bee L 1,000 mL, M emoria Chloride 3-13 Toone Rate: l 0.9% 07:29: 1,000 Vin (Bolus) IV 00 ml/hr, 1,000 mL Infuse over: 1 hr, Route: IV, Dosing Weight 68.182 kg, Total Volume: 1,000, Bol[place] Dose, Priority: STAT, Start date: 09/01/11 2:29:00, Duration: 1 doses or times, Stop date: 09/01/11 3:28:00 Sodium 2011-0 No Bee L 1,000 mL, M emoria Chloride 3-13 [place] Rate: l 0.9% 07:29: 1,000 Vin (Bolus) IV 00 ml/hr, 1,000 mL Infuse over: 1 hr, Route: IV, Dosing Weight 68.182 kg, Total Volume: 1,000, Bolus Dose, Priority: STAT, Start date: 09/01/11 2:29:00, Duration: 1 doses or times, Stop date: 09/01/11 3:28:00 Sodium 2011-0 No Bee L 1,000 mL, M emoria Chloride 3-13 Toone Rate: l 0.9% 07:29: 1,000 Vin (Bolus) IV 00 ml/hr, 1,000 mL Infuse over: 1 hr, Route: IV, Dosing Weight 68.182 kg, Total Volume: 1,000, Bolus Dose, Priority: STAT, Start date: 09/01/11 2:29:00, Duration: 1 doses or times, Stop date: 09/01/11 3:28:00 potassium 2012-0 No Brooks Noam 40 mEq, 2 Memoria chloride 3-04 Akmal tab, l 15:00: Route: PO, [place] Drug form: ERTAB, BID, Start date: 08/23/11 9:00:00, Duration: 2 doses or times, Stop date: 08/23/11 17:00:00 potassium 2012-0 No Brooks Noam 40 mEq, 2 Memoria chloride 3-04 Akmal tab, l 15:00: Route: PO, Vin Drug form: ERTAB, BID, Start date: 08/23/11 9:00:00, Duration: 2 doses or times, Stop date: 08/23/11 17:00:00 potassium 2012-0 No Brooks Noam 40 mEq, 2 Memoria chloride 3-04 Akmal tab, l 15:00: Route: PO, Vin Drug form: ERTAB, BID, Start date: 08/23/11 9:00:00, Duration: 2 doses or times, Stop date: 08/23/11 17:00:00 potassium 2012-0 No Brooks Noam 40 mEq, 2 Memoria chloride 3-04 Akmal tab, l 15:00: Route: PO, Vin Drug form: ERTAB, BID, Start date: 08/23/11 9:00:00, Duration: 2 doses or times, Stop date: 08/23/11 17:00:00 amLODipine 2012-0 Yes Brooks Noam 5 mg, 1 Memoria 5 mg oral 3-04 Akmal tab, PO, l tablet 14:45: Daily, 30 Jake n 36 tab, 3, 3, Substituti on Allowed, TAB amLODipine 2012-0 Yes Brooks Noam 5 mg, 1 Memoria 5 mg oral 3-04 Akmal tab, PO, l tablet 14:45: Daily, 30 Jake n 36 tab, 3, 3, Substituti on Allowed, TAB amLODipine 2011-0 Yes Brooks Noam 5 mg, 1 Memoria [...] Akmal SUB-Q, l human 14:40: TID, 30 [place] recombinant 10 vial, 3, 100 3, units/mL [...] 3-04 Akmal 100 mL, l 14:00: Route: [place] 00 IVPB, Drug form: INJ, Q2H, Start date: 08/23/11 8:00:00, Duration: 2 doses or times, Stop date: 08/23/11 10:00:00 potassium 2011-0 No Brooks Noam 20 mEq, Memoria chloride 3-04 Akmal 100 mL, l 14:00: Route: [place] 00 IVPB, Drug form: INJ, Q2H, Start date: 08/23/11 8:00:00, Duration: 2 doses or times, Stop date: 08/23/11 10:00:00 potassium 2011-0 No Brooks Noam 20 mEq, Memoria chloride 3-04 Akmal 100 mL, l 14:00: Route: [place] 00 IVPB, Drug form: INJ, Q2H, Start [...] chloride 3-04 Akmal Route: l 13:28: IVPB, [place] 00 ONCE, Priority: STAT, Start date: 08/23/11 7:28:00, Stop date: 08/23/11 7:28:00 calcium 2011-0 No Brooks Noam 1 gm, Mem oria chloride 3-04 Akmal Route: l 13:28: IVPB, Vin 00 ONCE, Priority: STAT, Start date: 08/23/11 7:28:00, Stop date: 08/23/11 7:28:00 calcium 2011-0 No Brooks Onam 1 gm, Mem oria chloride 3-04 Akmal Route: l 13:28: IVPB, [place] 00 ONCE, Priority: STAT, Start date: 08/23/11 7:28:00, Stop date: 08/23/11 7:28:00 potassium 2011-0 No Brooks Noam 40 mEq, Memoria chloride 3-04 Akmal Route: IV, l 12:29: ONCE, Vin 00 Start date: 08/23/11 6:29:00, Stop date: 08/23/11 6:29:00 potassium 2011-0 No Brooks Noam 40 mEq, Memoria chloride 3-04 Akmal Route: IV, l 12:29: ONCE, Vin 00 Start date: 08/23/11 6:29:00, Stop date: 08/23/11 6:29:00 potassium 2011-0 No Brooks Noam 40 mEq, Memoria chloride 3-04 Akmal Route: IV, l 12:29: ONCE, [place] 00 Start date: 08/23/11 6:29:00, Stop date: 08/23/11 6:29:00 potassium 2011-0 No Brooks Noam 40 mEq, Memoria chloride 3-04 Akmal Route: IV, l 12:29: ONCE, [place] 00 Start date: 08/23/11 6:29:00, Stop date: 08/23/11 6:29:00 potassium 2011-0 No Brooks Noam 60 mEq, 3 Memoria chloride 20 3-04 Akmal tab, l mEq oral 12:27: Route: PO, Her braden tablet, 00 Drug form: extended ERTAB, release ONCE, Start date: 08/23/11 6:27:00, Stop date: 08/23/11 6:27:00 potassium 2011-0 No Brooks Noam 60 mEq, 3 Memoria chloride 20 3-04 Akmal tab, l mEq oral 12:27: Route: PO, Her braden tablet, 00 Drug form: extended ERTAB, release ONCE, Start date: 08/23/11 6:27:00, Stop date: 08/23/11 6:27:00 potassium 2011-0 No Brooks Noam 60 mEq, 3 Memoria chloride 20 3-04 Akmal tab, l mEq oral 12:27: Route: PO, Her braden tablet, 00 Drug form: extended ERTAB, release ONCE, Start date: 08/23/11 6:27:00, Stop date: 08/23/11 6:27:00 potassium 2011-0 No Brooks Noam 60 mEq, 3 Memoria chloride 20 3-04 Akmal tab, l mEq oral 12:27: Route: PO, Her braden tablet, 00 Drug form: extended ERTAB, release ONCE, Start date: 08/23/11 6:27:00, Stop date: 08/23/11 6:27:00 magnesium 2011-0 No Brooks Noam 2 gm, 50 Memoria sulfate 3-04 Akmal mL, Route: l 12:26: IVPB, Drug [place] 00 form: INJ, ONCE, Total dose = [...] Akmal mL, Route: l 12:26: IVPB, Drug [place] 00 form: INJ, ONCE, Total dose = [...] Rodriguez 10 mL, l 16:25: Ahmed Route: [place] 00 IVPB, ONCE, Start date: 08/22/11 10:25:00, [...] Akmal mL, Route: l 13:26: IVPB, Drug [place] 00 form: INJ, ONCE, Total dose = [...] 30 day, Stop date: 09/19/11 21:00:00 Geodon 2011-0 No Yury 120 mg, 3 Mem oria 3-03 Gato cap, l 03:00: Rivero Route: PO, H erm Drug form: CAP, Bedtime, Start date: 08/21/11 21:00:00, Duration: 30 day, Stop date: 09/19/11 21:00:00 Geodon 2011-0 No Yury 120 mg, 3 Mem oria 3-03 Gato cap, l 03:00: Rivero Route: PO, H ermann 00 Drug form: CAP, Bedtime, Start date: 08/21/11 21:00:00, Duration: 30 day, Stop date: 09/19/11 21:00:00 Geodon 2011-0 No Yury 120 mg, 3 [...] 2012-0 No Yury 10 mg, 1 Memoria -02 Gato tab, l 20:06: Rivero Route: PO, [...] 3-02 Akmal tab, l 15:00: Route: PO, [place] 00 Drug form: TAB, Daily, Start date: 08/21/11 9:00:00, Stop date: 09/19/11 9:00:00 lisinopril 2012-0 No Brooks Noam 40 mg, 2 Memoria 3-02 Akmal tab, l 15:00: Route: PO, Vin 00 Drug form: TAB, Daily, Start date: 08/21/11 9:00:00, Stop date: 09/19/11 9:00:00 lisinopril 2012-0 No Brooks Noam 40 mg, 2 Memoria 3-02 Akmal tab, l 15:00: Route: PO, [place] 00 Drug form: TAB, Daily, Start date: 08/21/11 9:00:00, Stop date: 09/19/11 9:00:00 lisinopril 2012-0 No Brooks Noam 40 mg, 2 Memoria 3-02 Akmal tab, l 15:00: Route: PO, [place] 00 Drug form: TAB, Daily, Start date: [...] 08/20/11 15:41:00, Stop date: 09/19/11 15:40:00 Phenergan 2012-0 No Yury 6.25 mg, M emoria 3-01 Gato 0.25 mL, l 21:41: Rivero Route: Nidia nn 00 IVPB, Drug form: INJ, Q6H, PRN Nausea & Vomiting, Start date: 08/20/11 15:41:00, Stop date: 09/19/11 15:40:00 Phenergan 2012-0 No Yury 6.25 mg, M emoria 3-01 Gato 0.25 mL, l 21:41: Rivero Route: Nidia nn 00 IVPB, Drug form: INJ, Q6H, PRN Nausea & Vomiting, Start date: 08/20/11 15:41:00, Stop date: 09/19/11 15:40:00 Phenergan 2011- No Yury 6.25 mg, M emoria 3-01 Gato 0.25 mL, l 21:41: Rivero Route: Nidia nn 00 IVPB, Drug form: INJ, Q6H, PRN Nausea & Vomiting, Start date: 08/20/11 15:41:00, Stop date: 09/19/11 15:40:00 Compazine No [place] 5 mg, 1 Mem oria 3-01 Rodriguez tab, l 20:30: Ahmed Route: PO, Jake n 00 Drug form: TAB, Q6H, PRN Nausea & Vomiting, Start date: 08/20/11 14:30:00, Duration: 30 day, Stop date: 09/19/11 14:29:00 Compazine No [place] 5 mg, 1 Mem oria [...] mL, Route: l 17:15: Ahmed IVP, Drug [place] 00 form: INJ, Q8H, PRN Nausea, Start [...] 2011-0 No Yury 10 unit, Mem oria isophane-TRANSFER COORDINATOR 08-19 [place] Route: l H 16:00: Rivero SUB-Q, Nidia nn 00 ONCE, Start date: 08/20/11 10:00:00, Stop date: 08/20/11 10:00:00 insulin 2011-0 No Yury 10 unit, Mem oria isophane-TRANSFER COORDINATOR 08-19 [place] Route: l H 16:00: Rivero SUB-Q, Nidia nn 00 ONCE, Start date: 08/20/11 10:00:00, Stop date: 08/20/11 10:00:00 insulin 2011-0 No Yury 10 unit, Mem oria isophane-TRANSFER COORDINATOR 08-19 [place] Route: l H 16:00: Rivero SUB-Q, Nidia nn 00 ONCE, Start date: 08/20/11 10:00:00, Stop date: 08/20/11 10:00:00 insulin 2011-0 No Yury 10 unit, Mem oria isophane-TRANSFER COORDINATOR 08-19 [place] Route: l H 16:00: Mat VELASQUEZ-Q, Nidia nn 00 ONCE, Start date: 08/20/11 10:00:00, Stop date: 08/20/11 10:00:00 trazodone 2012-0 Yes 200 mg, 2 Mem oria 100 mg oral 3-01 tab, PO, l tablet 15:37: Bedtime, [place] 27 90 tab, Substituti on Allowed, TAB [...] tab, PO, l tablet 15:35: BID, 60 [place] 25 tab, Substituti on Allowed, TAB benztropine 2012-0 Yes 1 mg, 1 Mem oria 1 mg oral 3-01 tab, PO, l tablet 15:35: BID, 60 Vin 25 tab, Substituti on Allowed, TAB benztropine 2012-0 Yes 1 mg, 1 Mem oria 1 mg oral 3-01 tab, PO, l tablet 15:35: BID, 60 [place] 25 tab, Substituti on Allowed, TAB benztropine 2012-0 Yes 1 mg, 1 Mem oria 1 mg oral 3-01 tab, PO, l tablet 15:35: BID, 60 Vin 25 tab, Substituti on Allowed, TAB Geodon 60 2012-0 Yes 120 mg, 2 Mem oria mg oral 3-01 cap, PO, l capsule 15:35: Bedtime, Jake n 12 60 cap, Substituti on Allowed, CAP Geodon 60 2012-0 Yes 120 mg, 2 Mem oria mg oral 3-01 cap, PO, l capsule 15:35: Bedtime, Jake n 12 60 cap, Substituti on Allowed, CAP Geodon 60 2011- Yes 120 mg, 2 Mem oria mg oral 08-19 cap, PO, l capsule 15:35: Bedtime, Jake n 12 60 cap, Substituti on Allowed, CAP Geodon 60 0 Yes 120 mg, 2 Mem oria mg oral 08-19 cap, PO, l capsule 15:35: Bedtime, Jake n 12 60 cap, Substituti on Allowed, CAP insulin No Yury 10 unit, Mem oria isophane-TRANSFER COORDINATOR - [place] Route: l H 15:00: Rivero SUB-Q, Nidia nn Q12H, Start date: 08/20/11 9:00:00, Duration: 30 [...] 2011-0 No Yury 10 unit, Mem oria isophane-TRANSFER COORDINATOR - [place] Route: l H 15:00: Rivero [...] 2011-0 No Yury 10 unit, Mem oria isophane-TRANSFER COORDINATOR 3-01 [place] Route: l H 15:00: Rivero SUB-Q, Nidia nn Q12H, Start date: 08/20/11 9:00:00, Duration: 30 [...] 2011-0 No Yury 10 unit, Mem oria isophane-TRANSFER COORDINATOR 3-01 [place] Route: l H 15:00: Rivero SUB-Q, Nidia nn Q12H, Start date: 08/20/11 9:00:00, Duration: 30 [...] 30 day, Stop date: 09/18/11 9:00:00 potassium 2012-0 No Yury 15 mmol, 5 Memoria phosphate 3-01 [place] mL, Route: l 14:30: Rivero IV, ONCE, He Start date: 08/20/11 8:30:00, Stop date: 08/20/11 8:30:00 potassium 2012-0 No Yury 15 mmol, 5 Memoria phosphate 3-01 [place] mL, Route: l 14:30: Rivero IV, ONCE, He Start date: 08/20/11 8:30:00, Stop date: 08/20/11 8:30:00 potassium 2012-0 No Yury 15 mmol, 5 Memoria phosphate 3-01 [place] mL, Route: l 14:30: Rivero IV, ONCE, He Start date: 08/20/11 8:30:00, Stop date: 08/20/11 8:30:00 potassium 2012-0 No Yury 15 mmol, 5 Memoria phosphate 3-01 [place] mL, Route: l 14:30: Rivero IV, ONCE, He Start date: 08/20/11 8:30:00, Stop date: 08/20/11 [...] regular 08-19 [place] SUB-Q, l 09:28: BID, [place] 23 Substituti on Allowed Insulin 2011-0 No [...] BID, Vin 23 Substituti on Allowed insulin 2011-0 No 10 unit, Memori a isophane-TRANSFER COORDINATOR - SUB-Q, l H 09:26: BID, Vin 18 Substituti on Allowed insulin 2011-0 No 10 unit, Memori a isophane-TRANSFER COORDINATOR 3- SUB-Q, l H 09:26: BID, [place] 18 Substituti on Allowed insulin 2011-0 No 10 unit, Memori a isophane-TRANSFER COORDINATOR 3- SUB-Q, l H 09:26: BID, [place] 18 Substituti on Allowed insulin 2011-0 No 10 unit, Memori a isophane-TRANSFER COORDINATOR 3- SUB-Q, l H 09:26: BID, [place] 18 Substituti on Allowed NS 1,000 mL No Brooks Noam 1,000 mL, Memoria 08-19 [place] Rate: 150 l 09:06: ml/hr, [place] 00 Infuse over: 6.7 hr, Route: IV, [...] 09/19/11 3:05:00 NS 1,000 mL No Brooks Noam 1,000 [...] 09/19/11 3:05:00 NS 1,000 mL No Brooks Noam 1,000 mL, Memoria 08-19 [place] Rate: 150 l 09:06: ml/hr, [place] 00 Infuse over: 6.7 hr, Route: IV, [...] 09/19/11 3:05:00 NS 1,000 mL 2011-0 No Didier Noam 1,000 mL, Memoria 3-01 [place] Rate: [...] 2011-0 No Yury 18 unit, Mem oria isophane-TRANSFER COORDINATOR 3-01 [place] 0.18 mL, l H 08:58: Rivero Route: Nidia nn SUB-Q, Drug form: INJ, Q12H, Start date: 08/20/11 2:58:00, Stop date: 09/18/11 21:00:00 insulin 2011-0 No Yury 18 unit, Mem oria isophane-TRANSFER COORDINATOR 3-01 [place] 0.18 mL, l H 08:58: Rivero Route: Nidia nn 00 SUB-Q, Drug form: INJ, Q12H, Start date: 08/20/11 2:58:00, Stop date: 09/18/11 21:00:00 insulin 2011-0 No Yury 18 unit, Mem oria isophane-TRANSFER COORDINATOR 3-01 [place] 0.18 mL, l H 08:58: Rivero Route: Nidia nn 00 SUB-Q, Drug form: INJ, Q12H, Start date: 08/20/11 2:58:00, Stop date: 09/18/11 21:00:00 insulin 2011-0 No Yury 18 unit, Mem oria isophane-TRANSFER COORDINATOR 3-01 [place] 0.18 mL, l H [...] 2011-0 No Yury 1 mg, Memor ia - [...] 30 day, Stop date: 09/19/11 2:47:00 insulin 2011- No Yury 2 unit, Mendoza [...] 30 day, Stop date: 09/19/11 2:47:00 insulin 2011- No Yury 2 unit, Mendoza [...] No Hughes-Jason 4 mg, M emoria 08-19 [place] Route: l 07:42: [place] IVP, Drug Herm naeem 00 Pu form: INJ, ONCE, Priority: STAT, Start date: 08/20/11 1:42:00, Stop date: 08/20/11 1:42:00 ondansetron 2011-0 No Hughes-Jason 4 mg, M emoria 08-19 [place] Route: l 07:42: [place] IVP, Drug Herm naeem 00 Pu form: INJ, ONCE, Priority: STAT, Start date: 08/20/11 1:42:00, Stop date: 08/20/11 1:42:00 ondansetron 2011-0 No Hughes-Jason 4 mg, M emoria 08-19 [place] Route: l 07:42: [place] IVP, Drug Herm naeem 00 Pu form: INJ, ONCE, Priority: STAT, Start date: 08/20/11 1:42:00, Stop date: 08/20/11 1:42:00 ondansetron 2011-0 No Hughes-Jason 4 mg, M emoria 08-19 [place] Route: l 07:42: [place] IVP, Drug Herm naeem 00 Pu form: INJ, ONCE, Priority: STAT, Start date: 08/20/11 1:42:00, Stop date: 08/20/11 1:42:00 GI cocktail 0 No Hughes-Jason 30 ml, Memoria 08-19 [place] Route: PO, l 05:12: [place] Drug Form: Her braden 00 Pu SUSP, ONCE, STAT, Start date: 08/19/11 23:12:00, Stop date: 08/19/11 23:12:00 GI cocktail No Hughes-Jason 30 ml, Memoria 08-19 [place] Route: PO, l 05:12: [place] Drug Form: Her br[place] 00 Pu SUSP, ONCE, STAT, Start date: 08/19/11 23:12:00, Stop date: 08/19/11 23:12:00 GI cocktail No Hughes-Jason 30 ml, Memoria 08-19 [place] Route: PO, l 05:12: [place] Drug Form: Her braden 00 Pu SUSP, ONCE, STAT, Start date: 08/19/11 23:12:00, Stop date: 08/19/11 23:12:00 GI cocktail No Hughes-Jason 30 ml, Memoria 08-19 [place] Route: PO, l 05:12: [place] Drug Form: Her br[place] 00 Pu SUSP, ONCE, STAT, Start date: 08/19/11 23:12:00, Stop date: 08/19/11 23:12:00 ondansetron No Hughes-Jason 4 mg, M emoria 08-19 [place] Route: PO, l 05:10: [place] Drug form: Her braden 00 Pu TABDIS, ONCE, Priority: STAT, Start date: 08/19/11 23:10:00, Stop date: 08/19/11 23:10:00 Lactated 2011- No Hughes-Jason 1,000 mL, Memoria Ringers 08-19 [place] Rate: l (Bolus) IV 05:10: [place] 1,000 He rmann 1000 mL 00 Pu ml/hr, Infuse over: 1 hr, Route: IV, Total Volume: 1,000, Bolus Dose, Priority: STAT, Start date: 08/19/11 23:10:00, Duration: 1 doses or times, Stop date: 08/20/11 0:09:00 ondansetron 2012-0 No Hughes-Jason 4 mg, M emoria 3- [place] Route: PO, l 05:10: [place] Drug form: Her braedn 00 Pu TABDIS, ONCE, Priority: STAT, Start date: 08/19/11 23:10:00, Stop date: 08/19/11 23:10:00 Lactated 2011-0 No Hughes-Jason 1,000 mL, Memoria Ringers 3- [place] Rate: l (Bolus) IV 05:10: [place] 1,000 He rmann 1000 mL 00 Pu ml/hr, Infuse over: 1 hr, Route: IV, Total Volume: 1,000, Bolus Dose, Priority: STAT, Start date: 08/19/11 23:10:00, Duration: 1 doses or times, Stop date: 08/20/11 0:09:00 ondansetron 2011-0 No Hughes-Jason 4 mg, M emoria 3- [place] Route: PO, l 05:10: [place] Drug form: Her braden 00 Pu TABDIS, ONCE, Priority: STAT, Start date: 08/19/11 23:10:00, Stop date: 08/19/11 23:10:00 Lactated 2011-0 No Hughes-Jason 1,000 mL, Memoria Ringers 3- [place] Rate: l (Bolus) IV 05:10: [place] 1,000 He rmann 1000 mL 00 Pu ml/hr, Infuse over: 1 hr, Route: IV, Total Volume: 1,000, Bolus Dose, Priority: STAT, Start date: 08/19/11 23:10:00, Duration: 1 doses or times, Stop date: 08/20/11 0:09:00 ondansetron 2012-0 No Hughes-Jason 4 mg, M emoria 3- [place] Route: PO, l 05:10: [place] Drug form: Her braden 00 Pu TABDIS, ONCE, Priority: STAT, Start date: 08/19/11 23:10:00, Stop date: 08/19/11 23:10:00 Lactated 2011-0 No Hughes-Jason 1,000 mL, Memoria Ringers 3- [place] Rate: l (Bolus) IV 05:10: [place] 1,000 He r[place] 1000 mL 00 Pu ml/hr, Infuse over: 1 hr, Route: IV, Total Volume: 1,000, Bolus Dose, Priority: STAT, Start date: 08/19/11 23:10:00, Duration: 1 doses or times, Stop date: 08/20/11 0:09:00 Insulin 2011-0 No Hughes-Jason 7 unit, Mem oria regular 3-01 [place] 0.07 mL, l 04:15: [place] Route: Vin Pu SUB-Q, Drug form: SOLN, ONCE, Priority: STAT, Start date: 08/19/11 22:15:00, Stop date: 08/19/11 22:15:00 Insulin 2011-0 No Hughes-Jason 7 unit, Mem oria regular 3-01 [place] 0.07 mL, l 04:15: [place] Route: Vin Pu SUB-Q, Drug form: SOLN, ONCE, Priority: STAT, Start date: 08/19/11 22:15:00, Stop date: 08/19/11 22:15:00 Insulin 2011-0 No Hughes-Jason 7 unit, Mem oria regular 3- [place] 0.07 mL, l 04:15: [place] Route: Vin Pu SUB-Q, Drug form: SOLN, ONCE, Priority: STAT, Start date: 08/19/11 22:15:00, Stop date: 08/19/11 22:15:00 Insulin 2011-0 No Hughes-Jason 7 unit, Mem oria regular 3-01 [place] 0.07 mL, l 04:15: [place] Route: Vin Pu SUB-Q, Drug form: SOLN, ONCE, Priority: STAT, Start date: 08/19/11 22:15:00, Stop date: 08/19/11 22:15:00 Geodon 60 2011-0 No Yury 60 mg, 1 M emoria mg oral 2-29 [place] cap, PO, l capsule 23:24: Rivero BID, 180 [place] 43 cap, Substituti on Allowed, CAP Geodon 60 0 No Yury 60 mg, 1 M emoria mg oral 2-29 [place] cap, PO, l capsule 23:24: Rivero BID, 180 Vin 43 cap, Substituti on Allowed, CAP Geodon 60 2011-0 No Yury 60 mg, 1 M emoria mg oral 2-29 [place] cap, PO, l capsule 23:24: Rivero BID, 180 [place] 43 cap, Substituti on Allowed, CAP Geodon 60 2011-0 No Yury 60 mg, 1 M emoria mg oral 2-29 [place] cap, PO, l capsule 23:24: Rivero BID, 180 [place] 43 cap, Substituti on Allowed, CAP trazodone 2011-0 No 300 mg, 1 Mem oria 300 mg oral 2-29 tab, PO, l tablet 23:23: Bedtime, [place] 58 15 tab, Substituti on Allowed, TAB trazodone 2011-0 No 300 mg, 1 Mem oria 300 mg oral 2-29 tab, PO, l tablet 23:23: Bedtime, [place] 58 15 tab, Substituti on Allowed, TAB trazodone 2011-0 No 300 mg, 1 Mem oria 300 mg oral 2-29 tab, PO, l tablet 23:23: Bedtime, [place] 58 15 tab, Substituti on Allowed, TAB trazodone 2012-0 No 300 mg, 1 Mem oria 300 mg oral 2-29 tab, PO, l tablet 23:23: Bedtime, [place] 58 15 tab, Substituti on Allowed, TAB Effexor XR 2011-0 Yes [place] 75 mg, 1 Memoria 75 mg oral 2-29 [place] cap, PO, l capsule, 23:22: Rivero Daily, 30 [place] extended 24 cap, release Substituti on Allowed Effexor XR 2011-0 Yes Yury 75 mg, 1 Memoria 75 mg oral 2-29 [place] cap, PO, l capsule, 23:22: Rivero Daily, 30 [place] extended 24 cap, release Substituti on Allowed Effexor XR 2011-0 Yes [place] 75 mg, 1 Memoria 75 mg oral 2-29 [place] cap, PO, l capsule, 23:22: Rivero Daily, 30 [place] extended 24 cap, release Substituti on Allowed Effexor XR 2011-0 Yes Yury 75 mg, 1 Memoria 75 mg oral 2-29 [place] cap, PO, l capsule, 23:22: Rivero Daily, 30 [place] extended 24 cap, release Substituti on Allowed Lactated 2011-0 No Yury 1,000 mL, emoria Ringers IV [place] Rate: 250 l 1,000 mL 23:03: Rivero ml/hr, H ermann 00 Infuse over: 4 hr, Route: IV, Total Volume: 1,000, Priority: STAT, Start date: 08/19/11 17:03:00, Duration: 30 day, Stop date: 09/18/11 17:02:00 Lactated 2011-0 No Yury 1,000 mL, emoria Ringers IV [place] Rate: 250 l 1,000 mL 23:03: Irvero ml/hr, H ermann Infuse over: 4 hr, Route: IV, Total Volume: 1,000, Priority: STAT, Start date: 08/19/11 17:03:00, Duration: 30 day, Stop date: 09/18/11 17:02:00 Lactated 2011-0 No Yury 1,000 mL, emoria Ringers IV [place] Rate: 250 l 1,000 mL 23:03: Rivero ml/hr, H erm Infuse over: 4 hr, Route: IV, Total Volume: 1,000, Priority: STAT, Start date: 08/19/11 17:03:00, Duration: 30 day, Stop date: 09/18/11 17:02:00 Lactated 2011-0 No Yury 1,000 mL, emoria Ringers IV [place] Rate: 250 l 1,000 mL 23:03: Rivero ml/hr, H ermann Infuse over: 4 hr, Route: IV, Total [...] 08/19/11 16:04:00, Stop date: 08/19/11 16:04:00 Protonix 2012-0 No William 40 mg, Memor ia Wong Route: l 22:04: Pooja IVP, Drug Jake n 00 form: INJ, ONCE, Start date: 08/19/11 16:04:00, Stop date: 08/19/11 16:04:00 GI cocktail 2011-0 No William 40 mL, Me moria Wong Route: PO, l 22:04: Pooja Drug Form: Nidia nn 00 SUSP, ONCE, STAT, Start date: 08/19/11 16:04:00, Stop date: 08/19/11 16:04:00 Protonix No William 40 mg, Memor ia Wong Route: l 22:04: Pooja IVP, Drug Jake n 00 form: INJ, ONCE, Start date: 08/19/11 16:04:00, Stop date: 08/19/11 16:04:00 GI cocktail No William 40 mL, Me [...] Wong Route: IV, l 21:57: Pooja ONCE, [place] 00 Start date: 08/19/11 15:57:00, Stop date: [...] Wong Route: IV, l 21:57: Pooja ONCE, [place] 00 Start date: 08/19/11 15:57:00, Stop date: [...] Wong Route: IV, l 21:57: Pooja ONCE, [place] 00 Start date: 08/19/11 15:57:00, Stop date: [...] 2020-02-20 Completed [facility] Vaccine 00:00:00 [facility] Influenza Virus 2020-02-20 Completed [facility] Vaccine 00:00:00 [facility] TDAP (ADACEL) VACCINE 2019-07-25 Completed Uni versity of 00:00:00 [facility] Meningococcal B, OMV 2019-07-25 Completed Univ ersity of 00:00:00 [facility] Meningococcal 2019-07-25 Completed University of Polysaccharide 00:00:00 [facility] (groups A, C, Y and Branc h W-135) conjugate vaccine (MCV4P) TDAP (ADACEL) VACCINE 2019-07-25 Completed Uni versity of 00:00:00 [facility] Meningococcal B, OMV 2019-07-25 Completed Univ ersity of 00:00:00 [facility] Meningococcal 2019-07-25 Completed University of Polysaccharide 00:00:00 [place] [facility] (groups A, C, Y and [...] hepatitis B vaccine 2018-04-07 Completed Memor ial [place] 00:00:00 hepatitis B vaccine 2018-04-07 Completed Memor ial Vin 00:00:00 influenza virus 2018-03-29 Completed [facility] Vin vaccine, inactivated 00:00:00 influenza virus 2018-03-29 Completed Memorial Vin vaccine, inactivated 00:00:00 influenza virus 2018-03-29 Completed Memorial Vin vaccine, inactivated 00:00:00 influenza virus 2018-03-29 Completed [facility] Vin vaccine, inactivated 00:00:00 hepatitis B vaccine 2017-11-26 Completed Memor ial [place] 00:00:00 hepatitis B vaccine 2017-11-26 Completed Memor ial Vin 00:00:00 hepatitis B vaccine 2017-11-26 Completed Memor ial Vin 00:00:00 hepatitis B vaccine 2017-11-26 Completed Memor ial [place] 00:00:00 influenza virus 2017-10-25 Completed [facility] Vin vaccine, inactivated 00:00:00 pneumococcal 2017-10-25 Completed [facility] Her braden 23-valent vaccine 00:00:00 influenza virus 2017-10-25 Completed [facility] Vin vaccine, inactivated 00:00:00 pneumococcal 2017-10-25 Completed [facility] braden 23-valent vaccine 00:00:00 influenza virus 2017-10-25 Completed [facility] [place] vaccine, inactivated 00:00:00 pneumococcal 2017-10-25 Completed [facility] braden 23-valent vaccine 00:00:00 influenza virus 2017-10-25 Completed [facility] [place] vaccine, inactivated 00:00:00 pneumococcal 2017-10-25 Completed [facility] braden 23-valent vaccine 00:00:00 Influenza Virus 2017-06-22 Completed [facility]it [facility] of Vaccine Quad IM 3+ 00:00:00 [facility] Influenza Virus 2017-06-22 Completed Universit y of Vaccine Quad IM 3+ 00:00:00 [facility] Influenza Virus 2016-04-02 Completed Universit y of Vaccine Quad IM 3+ 00:00:00 [facility] Influenza Virus 2016-04-02 Completed [facility]it y of Vaccine Quad IM 3+ 00:00:00 [facility] Influenza Virus 2015-10-28 Completed [facility]it y of Vaccine Quad IM 3+ 00:00:00 [facility] Influenza Virus 2015-10-28 Completed [facility]it y of Vaccine Quad IM 3+ 00:00:00 [facility] Vital Signs Vital Name Observation Time [...] 2020-06-27 16:33:00 171 mm[Hg] [facility] Diastolic blood 2020-06-27 16:33:00 98 mm[Hg] [facility] Heart rate 2020-06-27 16:33:00 71 /min General acute hospital Respiratory rate 2020-06-27 16:29:00 19 /[facility] height 2020-06-27 16:29:00 154.9 cm [facility] acute hospital Body weight 2020-06-27 16:29:00 77.293 kg [facility] acute hospital BMI 2020-06-27 16:29:00 32.20 kg/m2 General acute hospital Oxygen saturation in 2020-06-27 16:29:00 99 /min [facility] Arterial blood by [facility] Pulse oximetry Branch Systolic blood 2020-06-27 16:33:00 171 mm[Hg] Univer sity of pressure [facility] Diastolic blood 2020-06-27 16:33:00 98 mm[Hg] Unive rsity of pressure [facility] Heart rate 2020-06-27 16:33:00 71 /min [facility] Respiratory rate 2020-06-27 16:29:00 19 /min Univ ersity of [facility] Body height 2020-06-27 16:29:[address] [facility] Body weight 2020-06-27 16:29:[address] [facility] BMI 2020-06-27 16:29:00 32.20 kg/m2 [facility] Oxygen saturation in 2020-06-27 16:29:00 99 /min [facility] Arterial blood by [facility] Pulse oximetry Branch Height/Length 2021-07-08 11:50:13 154.9 cm Measured Weight Dosing 2021-07-08 11:50:13 85.00 kg Height/Length 2021-07-08 11:47:31 154.9 cm Measured Weight Dosing 2021-07-08 11:47:31 85.00 kg Height/Length 2021-07-08 11:47:20 154.9 cm Measured Weight Dosing 2021-07-08 11:47:20 85.00 kg Systolic blood 2021-07-08 19:43:00 189 mm[Hg] [facility] pressure Diastolic blood 2021-07-08 19:43:00 104 mm[Hg] [facility] pressure Heart rate 2021-07-08 18:56:00 74 /min [facility] Body temperature 2021-07-08 18:56:00 36.39 Cathleen [facility] Body height 2021-07-08 18:56:00 157.5 cm [facility] Body weight 2021-07-08 18:56:00 72.938 kg [facility] BMI 2021-07-08 18:56:00 29.41 kg/m2 [facility] Oxygen saturation in 2021-07-08 18:56:00 100 /min [facility] Arterial blood by Pulse oximetry Respiratory rate 2021-06-18 16:36:00 11 /min [facility] Systolic (mm Hg) 2021-01-29 20:03:00 [facility] Diastolic (mm Hg) 2021-01-29 20:03:00 Mem orial [place] Systolic (mm Hg) 2021-01-29 19:40:00 [place]za rial Vin Diastolic (mm Hg) 2021-01-29 19:40:00 Mem orial [place] Systolic (mm Hg) 2021-01-29 18:05:00 Mendoza rial Vin Diastolic (mm Hg) 2021-01-29 18:05:00 Mem orial Vin Respitory Rate 2021-01-29 16:55:00 Memori al Vin Temperature Oral (F) 2021-01-29 16:45:00 97.3 F Memorial Vin Respitory Rate 2021-01-29 16:45:00 Memori al [place] Respitory Rate 2021-01-29 16:30:00 Memori al Vin Temperature Oral (F) 2021-01-29 13:10:00 97.6 F [facility] [place] Systolic (mm Hg) 2021-01-27 05:00:00 [place]za rial Vin Diastolic (mm Hg) 2021-01-27 05:00:00 Mem orial Vin Systolic (mm Hg) 2021-01-27 04:00:00 [place]za rial [place] Diastolic (mm Hg) 2021-01-27 04:00:00 Mem orial Vin Systolic (mm Hg) 2021-01-27 03:00:00 [place]endoza rial Vin Diastolic (mm Hg) 2021-01-27 03:00:00 Mem orial Vin Respitory Rate 2021-01-26 19:00:00 Memori al Vin Respitory Rate 2021-01-26 18:00:00 Memori al [place] Respitory Rate 2021-01-26 17:00:00 Memori al Vin Temperature Oral (F) 2021-01-22 13:00:00 97.6 F [facility] [place] Height 2021-01-21 18:25:00 149.86 cm [facility] [place] Weight 2021-01-21 18:25:00 [facility] [place] BMI Calculated 2021-01-21 18:25:00 Memori al [place] Height 2021-01-21 17:09:00 157.48 cm Memorial Vin Height 2021-01-21 13:09:00 157.48 cm [facility] [place] Weight 2021-01-21 13:09:00 Memorial Vin BMI Calculated 2021-01-21 13:09:00 Memori al Vin Heart Rate 2021-01-21 12:50:00 Memorial Vin Systolic (mm Hg) 2020-12-24 15:43:00 [place]za rial [place] Diastolic (mm Hg) 2020-12-24 15:43:00 Mem orial [place] Heart Rate 2020-12-24 15:43:00 Memorial Vin Height 2020-12-24 15:43:00 154.94 cm Memorial Vin Weight 2020-12-24 15:43:00 [facility] [place] BMI Calculated 2020-12-24 15:43:00 Memori al Vin Systolic (mm Hg) 2016-07-30 14:00:00 Mendoza rial Vin Diastolic (mm Hg) 2016-07-30 14:00:00 Mem orial [place] Respitory Rate 2016-07-30 14:00:00 Memori al Vin Heart Rate 2016-07-30 14:00:00 Memorial Vin Temperature Oral (F) 2016-07-30 14:00:00 97.4 F [facility] [place] Systolic (mm Hg) 2016-07-30 10:45:00 Mendoza rial Vin Diastolic (mm Hg) 2016-07-30 10:45:00 Mem orial Vin Heart Rate 2016-07-30 10:45:00 [facility] [place] Temperature Oral (F) 2016-07-30 10:45:00 97.2 F [facility] [place] Respitory Rate 2016-07-30 10:45:00 Memori al [place] Heart Rate 2016-07-30 06:35:00 Memorial Vin Temperature Oral (F) 2016-07-30 06:35:00 97.0 F [facility] [place] Respitory Rate 2016-07-30 06:35:00 Memori al Vin Systolic (mm Hg) 2016-07-30 06:35:00 Mendoza rial Vin Diastolic (mm Hg) 2016-07-30 06:35:00 Mem orial [place] Weight 2016-07-24 02:13:00 Memorial Vin BMI Calculated 2016-07-24 02:13:00 Memori al [place] Height 2016-07-24 02:13:00 160.02 cm [facility] [place] Respitory Rate 2016-06-15 15:00:00 Memori al Vin Systolic (mm Hg) 2016-06-15 15:00:00 Mendoza rial Vin Diastolic (mm Hg) 2016-06-15 15:00:00 Mem orial [place] Respitory Rate 2016-06-15 14:00:00 Memori al [place] Systolic (mm Hg) 2016-06-15 14:00:00 [place]za rial [place] Diastolic (mm Hg) 2016-06-15 14:00:00 Mem orial Vin Respitory Rate 2016-06-15 13:29:00 Memori al Vin Systolic (mm Hg) 2016-06-15 13:29:00 Mendoza rial Vin Diastolic (mm Hg) 2016-06-15 13:29:00 Mem orial Vin Temperature Oral (F) 2016-06-14 10:56:00 97.1 F Memorial Vin Temperature Oral (F) 2016-06-14 06:55:00 97.1 F Memorial Vin Temperature Oral (F) 2016-06-12 10:00:00 96.8 F Memorial Vin Weight 2016-06-11 04:25:00 [facility] [place] Height 2016-06-11 04:25:00 160.02 cm Memorial Vin BMI Calculated 2016-06-11 04:25:00 Memori al Vin Heart Rate 2016-06-11 02:04:00 Memorial Vni Heart Rate 2016-06-11 00:00:00 Memorial Vin Heart Rate 2016-06-10 20:30:00 [facility] [place] Weight 2016-06-10 16:04:00 [facility] [place] BMI Calculated 2016-06-10 16:04:00 Memori al [place] Height 2016-06-10 16:04:00 160.02 cm Memorial Vin Temperature Oral (F) 2014-06-26 15:12:00 98.0 F [facility] Vin Systolic (mm Hg) 2014-06-26 15:12:00 Mendoza rial [place] Heart Rate 2014-06-26 15:12:00 [facility] [place] Diastolic (mm Hg) 2014-06-26 15:12:00 [facility] [place] Respitory Rate 2014-06-26 15:12:00 [facility] [place] Systolic (mm Hg) 2014-06-26 13:53:00 [facility] Diastolic (mm Hg) 2014-06-26 13:53:00 [facility] Respitory Rate 2014-06-26 13:53:00 [facility] [place] Temperature Oral (F) 2014-06-26 13:53:00 98.0 F [facility] Temperature Oral (F) 2014-06-26 12:37:00 98.2 F [facility] [place] Respitory Rate 2014-06-26 12:37:00 [facility] [place] Systolic (mm Hg) 2014-06-26 12:37:00 [facility] [place] Diastolic (mm Hg) 2014-06-26 12:37:00 [facility] [place] Heart Rate 2014-06-26 09:21:00 [facility] [place] Heart Rate 2014-06-26 06:08:00 [facility] Height 2014-06-26 05:35:00 154.94 cm [facility] Weight 2014-06-26 05:35:00 [facility] BMI Calculated 2014-06-26 05:35:00 [facility] Respitory Rate 2013-04-15 06:10:00 [facility] Diastolic (mm Hg) 2013-04-15 06:10:00 [facility] Heart Rate 2013-04-15 06:10:00 [facility] Systolic (mm Hg) 2013-04-15 06:10:00 [facility] Vin Temperature Oral (F) 2013-04-15 06:10:00 98.7 F [facility] Respitory Rate 2013-04-15 05:37:00 [facility] Diastolic (mm Hg) 2013-04-15 05:37:00 [facility] Systolic (mm Hg) 2013-04-15 05:37:00 [facility] [place] Temperature Oral (F) 2013-04-15 05:37:00 98.2 F [facility] Heart Rate 2013-04-15 05:37:00 [facility] Height 2013-04-15 02:06:00 160.02 cm [facility] Weight 2013-04-15 02:06:00 [facility] Temperature Oral (F) 2013-04-15 02:06:00 98.6 F [facility] Respitory Rate 2013-04-15 02:06:00 [facility] Heart Rate 2013-04-15 02:06:00 [facility] Diastolic (mm Hg) 2013-04-15 02:06:00 Mem [facility] Vin Systolic (mm Hg) 2013-04-15 02:06:00 [facility] Vin Weight 2012-03-14 21:33:00 [facility] Systolic (mm Hg) 2011-12-01 00:33:00 [facility] Vin Respitory Rate 2011-12-01 00:33:00 [facility] Heart Rate 2011-12-01 00:33:00 [facility] Diastolic (mm Hg) 2011-12-01 00:33:00 [facility] Temperature Oral (F) 2011-12-01 00:33:00 99.6 F [facility] Diastolic (mm Hg) 2011-11-30 21:00:00 [facility] Vin Heart Rate 2011-11-30 21:00:00 [facility] Respitory Rate 2011-11-30 21:00:00 [facility] Systolic (mm Hg) 2011-11-30 21:00:00 [facility] [place] Temperature Oral (F) 2011-11-30 21:00:00 99.8 F [facility] Vin Respitory Rate 2011-11-30 16:30:00 [facility] Ivn Systolic (mm Hg) 2011-11-30 16:30:00 [facility] [place] Diastolic (mm Hg) 2011-11-30 16:30:00 [facility] Vin Heart Rate 2011-11-30 16:30:00 [facility] Temperature Oral (F) 2011-11-30 16:30:00 99.8 F [facility] Weight 2011-11-29 11:40:00 [facility] Height 2011-11-29 11:40:00 157.48 cm [facility] Weight 2011-11-28 17:16:00 [facility] Weight 2011-09-18 13:30:00 [facility] Height 2011-09-18 13:30:00 154.94 cm [facility] Heart Rate 2011-09-09 13:31:00 [facility] Systolic (mm Hg) 2011-09-09 13:02:00 [facility] Vin Diastolic (mm Hg) 2011-09-09 13:02:00 [facility] Vin Respitory Rate 2011-09-09 13:02:00 [facility] Temperature Oral (F) 2011-09-09 13:02:00 97.5 F [facility] Diastolic (mm Hg) 2011-09-09 08:00:00 [facility] Vin Heart Rate 2011-09-09 08:00:00 [facility] Temperature Oral (F) 2011-09-09 08:00:00 98.6 F [facility] Respitory Rate 2011-09-09 08:00:00 [facility] Systolic (mm Hg) 2011-09-09 08:00:00 [facility] Vin Respitory Rate 2011-09-09 04:55:00 [facility] Diastolic (mm Hg) 2011-09-09 04:55:00 Mem o[facility] Vin Systolic (mm Hg) 2011-09-09 04:55:00 [facility] rial Vin Heart Rate 2011-09-09 04:55:00 [facility] Temperature Oral (F) 2011-09-09 00:55:00 98.7 F [facility] Weight 2011-09-01 19:59:00 [facility] Height 2011-09-01 19:59:00 154.94 cm [facility] Height 2011-09-01 07:01:00 154.94 cm [facility] Weight 2011-09-01 07:01:00 [facility] Respitory Rate 2011-08-23 18:00:00 [facility] Heart Rate 2011-08-23 18:00:00 [facility] Systolic (mm Hg) 2011-08-23 18:00:00 [facility] [place] Diastolic (mm Hg) 2011-08-23 18:00:00 [facility] Vin Temperature Oral (F) 2011-08-23 18:00:00 97.7 F [facility] Heart Rate 2011-08-23 14:24:00 [facility] Vin Temperature Oral (F) 2011-08-23 14:24:00 98.2 F [facility] Diastolic (mm Hg) 2011-08-23 14:24:00 Mem o[facility] Vin Systolic (mm Hg) 2011-08-23 14:24:00 [facility] Vin Respitory Rate 2011-08-23 14:24:00 [facility] Vin Systolic (mm Hg) 2011-08-23 11:15:00 [facility] Vin Diastolic (mm Hg) 2011-08-23 11:15:00 [facility] Temperature Oral (F) 2011-08-23 11:00:00 98.3 F [facility] Heart Rate 2011-08-23 11:00:00 [facility] Respitory Rate 2011-08-22 22:00:00 Brandon aldana Vin Height 2011-08-20 09:12:00 [facility] 2011-08-20 09:12:00 [facility] Height 2011-08-19 20:28:00 154.94 cm [facility] Weight 2011-08-19 20:28:00 [facility] Procedures Procedure Date / Time Performing Clinician Source Performed POC GLUCOSE 2021-06-18 17:00:00 [facility] B SURFACE 2021-06-18 14:07:00 Bill Cooper [facility] ANTIGEN VANCOMYCIN LEVEL, RANDOM 2021-06-18 13:44:00 [facility] HC COMPLETE BLD COUNT 2021-06-18 13:44:00 [facility] DIFF BASIC METABOLIC PANEL 2021-06-18 11:27:00 [facility] ESTIMATED GFR 2021-06-18 11:27:00 Aurelio Schumacher [facility]ital POC GLUCOSE 2021-06-18 08:07:00 Aurelio Schumacher Jew [facility] spital HEMODIALYSIS 2021-06-18 06:16:53 Bill Cooper spital POC GLUCOSE 2021-06-18 01:26:00 RenettaAurelio Jew spital POC GLUCOSE 2021-06-17 21:58:00 Aurelio Schumacher Jew spital HEMODIALYSIS 2021-06-17 18:25:45 Bill Cooper spital POC GLUCOSE 2021-06-17 17:36:00 RenettaFaiza Jew spital POC GLUCOSE 2021-06-17 13:51:00 Aurelio Schumacher Jew spital BASIC METABOLIC PANEL 2021-06-17 11:16:00 [facility] HC COMPLETE BLD COUNT 2021-06-17 11:16:00 [facility] W/AUTO DIFF ESTIMATED GFR 2021-06-17 11:16:00 [facility] POC GLUCOSE 2021-06-17 02:50:00 [facility] CONSULT TO OSTOMY CARE 2021-06-17 00:31:48 [facility] NURSE HC COMPLETE BLD COUNT 2021-06-16 23:31:00 [facility] W/AUTO DIFF BASIC METABOLIC PANEL 2021-06-16 23:31:00 [facility] ESTIMATED GFR 2021-06-16 23:31:00 [facility] POC GLUCOSE 2021-06-16 23:19:00 [facility] OR [place] < 1 HOUR 2021-06-16 22:49:00 Mando Diaz [facility] ANAEROBIC CULTURE 2021-06-16 22:36:00 [facility] FUNGUS CULTURE 2021-06-16 22:36:00 Mando Diaz [facility] AEROBIC CULTURE 2021-06-16 22:36:00 [facility] 2021-06-16 22:36:00 Mando Diaz [facility] MI AN ELECTIVE 2021-06-16 21:30:00 Jocelyne Zepeda [facility] SUPRAGLOTTIC AIRWAY AORTOGRAPHY, POSSIBLE 2021-06-16 21:17:00 Mando Diaz [facility] ANGIOPLASTY [facility] POC , URINE 2021-06-16 20:46:00 [facility] POTASSIUM LEVEL 2021-06-16 17:28:00 Isabell Dickerson marilyn Romero POC GLUCOSE 2021-06-16 11:39:00 [facility] BASIC METABOLIC PANEL 2021-06-16 10:08:00 [facility] HC COMPLETE BLD COUNT 2021-06-16 10:08:00 [facility] W/AUTO DIFF PROTHROMBIN TIME WITH INR 2021-06-16 10:08:00 Char Viramontes [facility] PARTIAL THROMBOPLASTIN 2021-06-16 10:08:00 Char Viramontes [facility] TIME (PTT) TYPE AND SCREEN 2021-06-16 10:08:00 Char Viramontes [facility] ospital ESTIMATED GFR 2021-06-16 10:08:00 [facility] POC GLUCOSE 2021-06-16 01:59:00 [facility] POC GLUCOSE 2021-06-15 22:58:00 [facility] COVID-19 QUALITATIVE 2021-06-15 19:29:00 Char Viramontes [facility] RT-PCR POC GLUCOSE 2021-06-15 17:42:00 [facility] HEMODIALYSIS 2021-06-15 16:17:54 Delfino Akbar [facility] POC GLUCOSE 2021-06-15 15:41:00 [facility] POC GLUCOSE 2021-06-15 13:44:00 [facility] POC GLUCOSE 2021-06-15 13:00:00 [facility] ECG 12-LEAD 2021-06-15 12:48:21 Leni Barker Ho spital HC COMPLETE BLD COUNT 2021-06-15 11:42:00 [facility] W/AUTO DIFF BASIC METABOLIC PANEL 2021-06-15 11:42:00 [facility] ESTIMATED GFR 2021-06-15 11:42:00 [facility] POC GLUCOSE 2021-06-15 01:31:00 [facility] US DUPLEX ARTERIAL LOWER 2021-06-14 21:55:33 [facility] EXTREMITY RIGHT POC GLUCOSE 2021-06-14 21:51:00 [facility] POC GLUCOSE 2021-06-14 17:36:00 [facility] POC GLUCOSE 2021-06-14 13:30:00 [facility] POC GLUCOSE 2021-06-14 13:29:00 [facility] HC COMPLETE BLD COUNT 2021-06-14 10:13:00 [facility] W/AUTO DIFF BASIC METABOLIC PANEL 2021-06-14 10:13:00 [facility] ESTIMATED GFR 2021-06-14 10:13:00 [facility] POC GLUCOSE 2021-06-14 02:45:00 [facility] POC GLUCOSE 2021-06-13 21:47:00 [facility] POC GLUCOSE 2021-06-13 20:46:00 [facility] CBC WITH PLATELET AND 2021-06-13 16:10:00 [facility] DIFFERENTIAL COMPREHENSIVE METABOLIC 2021-06-13 16:10:00 [facility] PANEL ESTIMATED GFR 2021-06-13 16:10:00 [facility] HEMODIALYSIS 2021-06-13 15:26:35 [facility] POC GLUCOSE 2021-06-13 14:30:00 [facility] VANCOMYCIN LEVEL, RANDOM 2021-06-13 10:59:00 Juwan You [facility] POC GLUCOSE 2021-06-13 10:40:00 [facility] POC GLUCOSE 2021-06-13 02:28:00 [facility] POC GLUCOSE 2021-06-13 00:16:00 [facility] POC GLUCOSE 2021-06-12 23:31:00 [facility] POC GLUCOSE 2021-06-12 23:14:00 [facility] POC GLUCOSE 2021-06-12 18:19:00 [facility] POC GLUCOSE 2021-06-12 14:37:00 [facility] POC GLUCOSE 2021-06-12 14:01:00 [facility] POC GLUCOSE 2021-06-12 03:03:00 Holden Nagel spital [facility] CT HEAD WO CONTRAST 2021-06-12 00:53:00 Robe [facility] POC GLUCOSE 2021-06-11 18:08:00 Holden Nagel spital [place] POC GLUCOSE 2021-06-11 13:39:00 Nagel, Holden Ferrara spital [place] HEMODIALYSIS 2021-06-11 12:38:38 Delfino Akbar [facility] POC GLUCOSE 2021-06-11 02:01:00 Holden Nagel Ho spital [place] POC GLUCOSE 2021-06-10 22:15:00 Holdne Nagel spital [place] POC GLUCOSE 2021-06-10 17:39:00 Holden Nagel spital [place] POC GLUCOSE 2021-06-10 16:05:00 Holden Nagel spital [place] TISSUE CULTURE 2021-06-10 15:08:00 Juwan You spital GRAM STAIN 2021-06-10 15:08:00 Juwan You spital ANAEROBIC CULTURE 2021-06-10 15:04:[address] [facility] FUNGUS CULTURE 2021-06-10 15:04:00 Juwan You spital AEROBIC CULTURE 2021-06-10 15:04:00 Juwan You spital AFB CULTURE 2021-06-10 15:04:00 Juwan You spital GRAM STAIN 2021-06-10 15:04:00 Juwan You spital AFB STAIN 2021-06-10 15:04:00 Juwan You spital [place] AN ELECTIVE 2021-06-10 14:26:00 Sofi Roach spital SUPRAGLOTTIC AIRWAY Marquita INCISION AND DRAINAGE, 2021-06-10 14:26:[address] [facility] LOWER EXTREMITY HC COMPLETE BLD COUNT 2021-06-10 10:20:00 [facility] W/AUTO DIFF BASIC METABOLIC PANEL 2021-06-10 10:20:00 [facility] PROTHROMBIN TIME WITH INR 2021-06-10 10:20:00 [facility] PARTIAL THROMBOPLASTIN 2021-06-10 10:20:[address] [facility] TIME (PTT) TYPE AND SCREEN 2021-06-10 10:20:00 Nagel, Holden Whyte Ho spital [place] ESTIMATED GFR 2021-06-10 10:20:00 Kenyatta Hartshorne Isabell Ferrara spital POC GLUCOSE 2021-06-10 03:11:00 Nagel, Holden Whyte Ho spital [place] POC GLUCOSE 2021-06-10 01:30:00 Nagel, Holden Whyte Ho spital [place] POC GLUCOSE 2021-06-09 22:22:00 Nagel, Holden Whyte Ho spital [place] POC GLUCOSE 2021-06-09 13:55:00 Nagel, Holden Whyte Ho spital [place] HEMODIALYSIS 2021-06-09 13:20:01 [facility] VANCOMYCIN LEVEL, RANDOM 2021-06-09 11:46:00 [facility] P[facility] 2021-06-09 02:06:00 NagelHolden rodriguez Ho spital [place] POC GLUCOSE 2021-06-08 22:23:00 Nagel, Holden Whyte Ho spital [place] POC GLUCOSE 2021-06-08 17:53:00 Nagel, [facility] Ho spital [place] HC COMPLETE BLD COUNT 2021-06-08 16:06:00 [facility] W/AUTO DIFF POC GLUCOSE 2021-06-08 13:56:00 NagelHolden rodriguez spital [place] URINE CULTURE 2021-06-08 03:56:00 Holden Nagel spital [place] URINALYSIS SCREEN AND 2021-06-08 03:32:00 [facility] MICROSCOPY, WITH REFLEX TO CULTURE POC GLUCOSE 2021-06-08 01:15:00 NagelHolden rodriguez Ho spital [place] POC GLUCOSE 2021-06-07 22:07:00 Robe, Holden Jew Ho spital [place] POC GLUCOSE 2021-06-07 18:01:00 Holden Nagel Ho spital [place] BASIC METABOLIC PANEL 2021-06-07 14:15:00 [facility] ESTIMATED GFR 2021-06-07 14:15:00 Nagel, Holden Whyte Ho spital [place] POC GLUCOSE 2021-06-07 13:56:00 Nagel, Holden Whyte Ho spital [place] POC GLUCOSE 2021-06-07 02:54:00 Holden Nagel Ho spital [facility] CT LOWER EXTREMITY W 2021-06-07 01:22:59 [facility] CONTRAST RIGHT POC GLUCOSE 2021-06-06 23:50:00 Holden Nagel Ho spital [place] POC GLUCOSE 2021-06-06 17:31:00 Nagel, Holden Whyte Ho spital [place] HEMODIALYSIS 2021-06-06 15:05:52 [facility] POC GLUCOSE 2021-06-06 14:03:00 Holden Nagel spital [place] HC COMPLETE BLD COUNT 2021-06-06 10:31:00 [facility] W/AUTO DIFF BASIC METABOLIC PANEL 2021-06-06 10:31:00 [facility] ESTIMATED GFR 2021-06-06 10:31:00 NagelHolden rodriguez Ho spital [place] POC GLUCOSE 2021-06-06 10:14:00 Holden Nagel Ho spital [place] POC GLUCOSE 2021-06-06 06:26:00 Holden Nagelist Ho spital [place] POC GLUCOSE 2021-06-06 02:41:00 Holden Nagel Jew Ho spital [place] POC GLUCOSE 2021-06-05 19:51:00 Holden Nagel Ho spital [place] BASIC METABOLIC PANEL 2021-06-05 18:06:00 [facility] HC COMPLETE BLD COUNT 2021-06-05 18:06:00 [facility] W/AUTO DIFF ESTIMATED GFR 2021-06-05 18:06:00 Robe [facility] spital Ramírez POC GLUCOSE 2021-06-05 17:48:00 Robe [facility] spital Ramírez ANAEROBIC CULTURE 2021-06-05 17:10:00 Kenyatta, [facility] ANAEROBIC CULTURE 2021-06-05 16:59:00 Kenyatta, [facility] FUNGUS CULTURE 2021-06-05 16:59:00 Kenyatta, [facility] spital AEROBIC CULTURE 2021-06-05 16:59:00 Kenyatta, [facility] spital AFB CULTURE 2021-06-05 16:59:00 Kenyatta, [facility] spital FUNGUS SMEAR 2021-06-05 16:59:00 Kenyatta, [facility] spital AFB STAIN 2021-06-05 16:59:00 Kenyatta, [facility] spital MI AN ELECTIVE 2021-06-05 16:52:08 [facility] SUPRAGLOTTIC AIRWAY TISSUE CULTURE 2021-06-05 16:50:00 Kenyatta, [facility] spital GRAM STAIN 2021-06-05 16:50:00 Kenyatta, [facility] spital DEBRIDEMENT, LOWER 2021-06-05 16:16:00 Kenyatta, [facility] EXTREMITY POC GLUCOSE 2021-06-05 13:32:00 Robe [facility] spital Ramírez TROPONIN T 2021-06-05 10:58:00 [facility] ospital ABO AND RH CONFIRMATION BY 2021-06-05 10:54:00 Rachel Brasher [facility] PROTOCOL Vipin BASIC METABOLIC PANEL 2021-06-05 10:53:00 [facility] HC COMPLETE BLD COUNT 2021-06-05 10:53:00 [facility] W/AUTO DIFF ESTIMATED GFR 2021-06-05 10:53:00 [facility] PROTHROMBIN TIME WITH INR 2021-06-05 10:52:00 Char Viramontes [facility] PARTIAL THROMBOPLASTIN 2021-06-05 10:52:00 [facility] TIME (PTT) HCG QUALITATIVE, SERUM 2021-06-05 10:52:00 Myron Fernandes [facility] SCREEN POC GLUCOSE 2021-06-05 09:40:00 Rachel Brasher Ho spital Vipin BLOOD CULTURE, AEROBIC & 2021-06-05 08:27:00 Rachel Brasher [facility] ANAEROBIC Vipin POC GLUCOSE 2021-06-05 07:42:00 Rachel Brasher Ho spital [place] POC GLUCOSE 2021-06-05 06:57:00 Rachel Brasher Ho spital [place] POC GLUCOSE 2021-06-05 06:10:00 Hodlen Nagel Ho spital Ramírez BLOOD CULTURE, AEROBIC & 2021-06-05 04:31:00 Rachel Brasher [facility] ANAEROBIC Vipin POC GLUCOSE 2021-06-05 04:04:00 Rachel Brasher Ho spital [place] POC GLUCOSE 2021-06-05 03:51:00 Rachel Brasher Ho spital [place] TYPE AND SCREEN 2021-06-05 03:40:00 Rachel Brasher Ho spital [place] POC GLUCOSE 2021-06-05 03:05:00 Rachel Brasher Ho spital [place] POC GLUCOSE 2021-06-05 02:23:00 Rachel Brasher Ho spital Vipin COVID-19 QUALITATIVE 2021-06-05 02:08:00 [facility] COMPLETE BLD COUNT 2021-06-05 01:24:00 [facility] W/AUTO DIFF PROTHROMBIN TIME WITH INR 2021-06-05 01:24:00 [facility] PARTIAL THROMBOPLASTIN 2021-06-05 01:24:00 Sivan Stewart [facility] TIME (PTT) COMPREHENSIVE METABOLIC 2021-06-05 01:24:00 Sivan Stewart [facility] PANEL CREATINE KINASE, TOTAL 2021-06-05 01:24:00 SamantaSivan [facility] (CPK) B NATRIURETIC PEPTIDE 2021-06-05 01:24:00 SamantaSivan [facility] TROPONIN T 2021-06-05 01:24:00 [facility] ESTIMATED GFR 2021-06-05 01:24:00 [facility] ECG ED PRELIMINARY 2021-06-05 00:31:28 [facility] INTERPRETATION ECG 12-LEAD 2021-06-05 00:19:17 Rachel Brasher marilyn [facility] POC GLUCOSE 2021-05-25 18:04:00 [facility]SE 2021-05-25 14:00:00 [facility]EM[facility] 2021-05-25 10:12:00 [facility] BASIC METABOLIC PANEL 2021-05-25 10:12:00 [facility] EST[facility] 2021-05-25 10:12:00 [facility] POC GLUCOSE 2021-05-25 02:49:00 [facility] POC GLUCOSE 2021-05-24 23:33:00 [facility] POC GLUCOSE 2021-05-24 17:56:00 [facility] POC GLUCOSE 2021-05-24 13:59:00 Awe, [facility] CBC HEMOGRAM 2021-05-24 10:12:00 Awe, [facility] BASIC METABOLIC PANEL 2021-05-24 10:12:00 Awe, [facility] ESTIMATED GFR 2021-05-24 10:12:00 Awe, [facility] POC GLUCOSE 2021-05-24 09:59:00 [facility], [facility] POC GLUCOSE 2021-05-24 02:26:00 Awe, [facility] POC GLUCOSE 2021-05-24 00:03:00 Awe, [facility] TRANSFUSE RED BLOOD CELLS 2021-05-23 22:30:00 [facility] TRANSFUSE RED BLOOD CELLS 2021-05-23 21:30:00 [facility] POC GLUCOSE 2021-05-23 19:03:00 Awe, [facility] TYPE AND SCREEN 2021-05-23 14:38:00 [facility] HC COMPLETE BLD COUNT 2021-05-23 14:38:00 [facility] W/AUTO DIFF PREPARE RBC 2021-05-23 14:38:00 [facility] ospital PREPARE PLATELET PHERESIS 2021-05-23 14:38:00 [facility] POC GLUCOSE 2021-05-23 14:35:00 Awe, [facility] HEMODIALYSIS 2021-05-23 13:42:30 [facility] CBC HEMOGRAM 2021-05-23 12:31:00 Awe, [facility] BASIC METABOLIC PANEL 2021-05-23 12:31:00 Awe, [facility] ESTIMATED GFR 2021-05-23 12:31:00 Awe, [facility] POC GLUCOSE 2021-05-23 11:22:00 Awe, [facility] POC GLUCOSE 2021-05-23 03:30:00 Awe, [facility] POC GLUCOSE 2021-05-22 23:20:00 [facility] POC GLUCOSE 2021-05-22 17:20:00 Awe, [facility] POC GLUCOSE 2021-05-22 13:27:00 Awe, [facility] BASIC METABOLIC PANEL 2021-05-22 12:31:00 [facility] MAGNESIUM LEVEL 2021-05-22 12:31:00 Nikki Haynes ospigabe Mcginnis CBC HEMOGRAM 2021-05-22 12:31:00 Nikki Haynes ospital Rahel ESTIMATED GFR 2021-05-22 12:31:00 Nikki Haynes ospigabe Rahle POC GLUCOSE 2021-05-22 10:54:00 Awe, [facility] POC GLUCOSE 2021-05-22 07:28:00 Awe, [facility] POC GLUCOSE 2021-05-22 01:11:00 Awe, [facility] HEPATITIS B SURFACE 2021-05-21 21:08:00 [facility] ANTIBODY HEMODIALYSIS 2021-05-21 20:57:40 [facility] POC GLUCOSE 2021-05-21 17:57:00 Awe, [facility] POC GLUCOSE 2021-05-21 13:55:00 Awe, [facility] POC GLUCOSE 2021-05-21 10:41:00 Tom Barber [facility] ZZCOVID-19 ANTI-SPIKE IGG 2021-05-21 07:43:00 Clyde Olmstead [facility] ANTIBODY TITER Esa BASIC METABOLIC PANEL 2021-05-21 07:43:00 [facility] MAGNESIUM LEVEL 2021-05-21 07:43:00 Nikki Haynes ospital Rahel CBC HEMOGRAM 2021-05-21 07:43:00 Nikki Haynes osgio Mcginnis ZZCOVID-19 SEROLOGY 2021-05-21 07:43:00 Clyde Olmstead [facility] PATIENT SURVEILLANCE Esa ESTIMATED GFR 2021-05-21 07:43:00 Andre Sofia [facility] [place] LACTIC ACID LEVEL 2021-05-21 07:43:00 Leodan Stevenson [facility] POC GLUCOSE 2021-05-21 06:35:00 [facility] COMPLETE BLD COUNT 2021-05-21 02:49:00 [facility] W/AUTO DIFF BASIC METABOLIC PANEL 2021-05-21 02:49:00 [facility] LACTIC ACID LEVEL 2021-05-21 02:49:00 [facility] OSMOLALITY, SERUM 2021-05-21 02:49:00 [facility] BETA HYDROXYBUTYRATE 2021-05-21 02:49:00 [facility] PROCALCITONIN 2021-05-21 02:49:00 [facility] ESTIMATED GFR 2021-05-21 02:49:00 [facility] POC GLUCOSE 2021-05-21 02:34:00 Tom Barber rajeshtal HC COMPLETE BLD COUNT 2021-05-21 00:28:00 Char Viramontes [facility] W/AUTO DIFF POC GLUCOSE 2021-05-20 23:57:00 Tom Barber [facility] BASIC METABOLIC PANEL 2021-05-20 23:20:00 Andre Sofia [facility] LACTIC ACID LEVEL 2021-05-20 23:20:00 Andre Sofia [facility] [place] ESTIMATED GFR 2021-05-20 23:20:00 Andre Sofia [facility] VENOUS BLOOD GAS 2021-05-20 23:19:00 Andre Sofia [...] RED BLOOD CELLS 2021-05-20 17:21:00 Angel Luis [facility] TRANSFUSE PLATELET 2021-05-20 15:52:00 [facility]ESIS BASIC METABOLIC PANEL 2021-05-20 15:25:00 Andre Sofia [facility] [place] ESTIMATED GFR 2021-05-20 15:25:00 Andre Sofia spital [place] POC GLUCOSE 2021-05-20 14:48:00 Tom Barber Ho spital HEMODIALYSIS 2021-05-20 11:31:20 [facility] POC GLUCOSE 2021-05-20 10:44:00 Tom Barber spital HEPATITIS B SURFACE 2021-05-20 08:49:00 [facility] ANTIGEN HEPATITIS B SURFACE AB, 2021-05-20 08:49:00 [facility] QUANTITATIVE HC COMPLETE BLD COUNT 2021-05-20 08:25:00 [facility] W/AUTO DIFF BASIC METABOLIC PANEL 2021-05-20 08:25:00 [facility] MAGNESIUM LEVEL 2021-05-20 08:25:00 [facility] ospital PHOSPHORUS LEVEL 2021-05-20 08:25:00 [facility] PROTHROMBIN TIME WITH INR 2021-05-20 08:25:00 [facility] ESTIMATED GFR 2021-05-20 08:25:00 [facility] HEMOGLOBIN A1C 2021-05-20 08:25:00 [facility] [place] POC GLUCOSE 2021-05-20 06:34:00 [facility] ARTERIAL BLOOD GAS 2021-05-20 04:36:00 [facility] ECG 12-LEAD 2021-05-20 03:42:28 [facility] PROTHROMBIN TIME WITH INR 2021-05-20 02:54:00 [facility] HC COMPLETE BLD COUNT 2021-05-20 02:54:00 [facility] BASIC METABOLIC PANEL 2021-05-20 02:54:00 Graham [facility] LACTIC ACID LEVEL 2021-05-20 02:54:00 Graham [facility] VENOUS BLOOD GAS 2021-05-20 02:54:00 Graham [facility] ESTIMATED GFR 2021-05-20 02:54:00 Graham [facility] spital POC GLUCOSE 2021-05-20 02:54:00 Tom Barber spital XR CHEST 1 VW PORTABLE 2021-05-20 02:51:13 [facility] [place] < 1 HOUR 2021-05-20 01:30:15 Juwan You spital TRANSFUSE RED BLOOD CELLS 2021-05-20 00:59:00 Juwan You [facility] MI AN ELECTIVE 2021-05-20 00:53:01 Sukhjinder Medina spital SUPRAGLOTTIC AIRWAY Kendall INCISION AND DRAINAGE, 2021-05-20 00:45:00 Juwan You [facility] HEMATOMA HC COMPLETE BLD COUNT 2021-05-19 22:13:00 [facility] W/AUTO DIFF BASIC METABOLIC PANEL 2021-05-19 22:13:00 [facility] PROTHROMBIN TIME WITH INR 2021-05-19 22:13:00 [facility] PARTIAL THROMBOPLASTIN 2021-05-19 22:13:00 [facility] TIME (PTT) MAGNESIUM LEVEL 2021-05-19 22:13:00 [facility] Jew [facility]spital ESTIMATED GFR 2021-05-19 22:13:00 Juwan You spital POC GLUCOSE 2021-05-19 22:00:00 Errol Luther [facility] SURGICAL PATHOLOGY REQUEST 2021-05-19 21:47:00 Errol Luther [facility] POC GLUCOSE 2021-05-19 21:17:00 Juwan You spital ACTIVATED CLOTTING TIME 2021-05-19 19:12:00 Tom Barber [facility] MI AN ELECTIVE 2021-05-19 18:11:04 Sukhjinder Medina spital SUPRAGLOTTIC AIRWAY [place] LOWER EXTREMITY 2021-05-19 17:59:00 Juwan You spital ANGIOGRAM,POSSIBLE ANGIOPLASTY,POSSIBLE STENT XR CHEST 1 VW PORTABLE 2021-05-19 15:47:37 Kenyatta Juwan [facility] ESTIMATED GFR 2021-05-19 14:34:00 Juwan You spital POC PANEL 2021-05-19 14:34:00 Juwan You spital TYPE AND SCREEN 2021-05-19 14:05:00 Isabell Dickerson spital Larry Romero PREPARE RBC 2021-05-19 14:05:00 Wander [facility] Isabell Taylor ospital PREPARE FRESH FROZEN 2021-05-19 14:05:00 [facility] PLASMA PREPARE PLATELET PHERESIS 2021-05-19 14:05:00 [facility] BASIC METABOLIC PANEL 2021-05-19 14:00:[address] [facility] Larry Romero PROTHROMBIN TIME WITH INR 2021-05-19 14:00:00 Me Jayla [facility] Larry Romero HC COMPLETE BLD COUNT 2021-05-19 14:00:[address] [facility] W/AUTO DIFF Larry Romero ABO AND RH CONFIRMATION BY 2021-05-19 14:00:[address] [facility] PROTOCOL ESTIMATED GFR 2021-05-19 14:00:00 Isabell Dickerson spital Larry Romero COVID-19 QUALITATIVE 2021-05-19 12:40:00 Juwan You [facility] RT-PCR MEDICAL RELEASE/CLEARANCE 2021-05-13 06:01:00 Doctor Unassigned, [facility] FORMS [facility] US DUPLEX ARTERIAL LOWER 2021-05-12 15:21:31 Juwan You [facility] EXTREMITY BILATERAL Emergency department [...] procedure) Therapeutic, prophylactic, 2013-04-15 05:00:00 [facility] [place] or diagnostic injection (specify substance or drug); intravenous push, single or initial substance/drug Eye procedure Shahid Banuelos Colonoscopy [facility]) gastric outlet reduction section Shahid Joseph n Tubal ligation Shahid Banuelos 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 Plan of Care Planned Activity Planned Date Details Comments Source Future Scheduled 2022-10-23 HEPATITIS B VACCINES [facility] Test 05:16:19 (1 of 3 - 3-dose series) [code = HEPATITIS B VACCINES (1 of 3 - 3-dose series)] Future Scheduled 2022-10-23 COVID-19 VACCINE (#1) [facility] Test 05:16:19 [code = COVID-19 VACCINE (#1)] Future Scheduled 2022-10-23 Pneumococcal Vaccine: [facility] Test 05:16:19 Pediatrics (0 to 5 Years) and At-Risk Patients (6 to 64 Years) (1 - PCV) [code = Pneumococcal Vaccine: Pediatrics (0 to 5 Years) and At-Risk Patients (6 to 64 Years) (1 - PCV)] Future Scheduled 2022-10-23 Hepatitis C screening [facility] Test 05:16:19 (procedure) [code = [id number]] Future Scheduled 2022-10-23 Screening for [facility] Test 05:16:19 malignant neoplasm of cervix (procedure) [code = [id number]] Future Scheduled 2022-10-23 BREAST CANCER [facility] Test 05:16:19 SCREENING [code = BREAST CANCER SCREENING] Future Scheduled 2022-10-23 INFLUENZA VACCINE [facility] Test 05:16:19 [code = INFLUENZA VACCINE] Future Scheduled 2022-06-11 HEPATITIS B VACCINES [facility] Test 02:09:30 (1 of 3 - 3-dose series) [code = HEPATITIS B VACCINES (1 of 3 - 3-dose series)] Future Scheduled 2022-06-11 COVID-19 VACCINE (#1) [facility] Test 02:09:30 [code = COVID-19 VACCINE (#1)] Future Scheduled 2022-06-11 Pneumococcal Vaccine: [facility] Test 02:09:30 Pediatrics (0 to 5 Years) and At-Risk Patients (6 to 64 Years) (1 - PCV) [code = Pneumococcal Vaccine: Pediatrics (0 to 5 Years) and At-Risk Patients (6 to 64 Years) (1 - PCV)] Future Scheduled 2022-06-11 Hepatitis C screening [facility] Test 02:09:30 (procedure) [code = [id number]] Future Scheduled 2022-06-11 Screening for [facility] Test 02:09:30 malignant neoplasm of cervix (procedure) [code = 548170152] Future Scheduled 2022-06-11 INFLUENZA VACCINE [facility] Test 02:09:30 [code = INFLUENZA VACCINE] Future Scheduled 2022-06-11 HEPATITIS B VACCINES [facility] Test 02:09:30 (1 of 3 - 3-dose series) [code = HEPATITIS B VACCINES (1 of 3 - 3-dose series)] Future Scheduled 2022-06-11 COVID-19 VACCINE (#1) [facility] Test 02:09:30 [code = COVID-19 VACCINE (#1)] Future Scheduled 2022-06-11 Pneumococcal Vaccine: [facility] Test 02:09:30 Pediatrics (0 to 5 Years) and At-Risk Patients (6 to 64 Years) (1 - PCV) [code = Pneumococcal Vaccine: Pediatrics (0 to 5 Years) and At-Risk Patients (6 to 64 Years) (1 - PCV)] Future Scheduled 2022-06-11 Hepatitis C screening [facility] Test 02:09:30 (procedure) [code = 356006038] Future Scheduled 2022-06-11 Screening for [facility] Test 02:09:30 malignant neoplasm of cervix (procedure) [code = 711382851] Future Scheduled 2022-06-11 INFLUENZA VACCINE [facility] Test 02:09:30 [code = INFLUENZA VACCINE] Future Scheduled 2022-06-11 HEPATITIS B VACCINES [facility] Test 02:09:30 (1 of 3 - 3-dose series) [code = HEPATITIS B VACCINES (1 of 3 - 3-dose series)] Future Scheduled 2022-06-11 COVID-19 VACCINE (#1) [facility] Test 02:09:30 [code = COVID-19 VACCINE (#1)] Future Scheduled 2022-06-11 Pneumococcal Vaccine: [facility] Test 02:09:30 Pediatrics (0 to 5 Years) and At-Risk Patients (6 to 64 Years) (1 - PCV) [code = Pneumococcal Vaccine: Pediatrics (0 to 5 Years) and At-Risk Patients (6 to 64 Years) (1 - PCV)] Future Scheduled 2022-06-11 Hepatitis C screening [facility] Test 02:09:30 (procedure) [code = 109189738] Future Scheduled 2022-06-11 Screening for [facility] Test 02:09:30 malignant neoplasm of cervix (procedure) [code = 287949543] Future Scheduled 2022-06-11 [facility] 02:09:30 [code = INFLUENZA VACCINE] Future Scheduled 2022-06-11 HEPATITIS B VACCINES [facility] Test 02:09:30 (1 of 3 - 3-dose series) [code = HEPATITIS B VACCINES (1 of 3 - 3-dose series)] Future Scheduled 2022-06-11 COVID-19 VACCINE (#1) [facility] Test 02:09:30 [code = COVID-19 VACCINE (#1)] Future Scheduled 2022-06-11 Pneumococcal Vaccine: [facility] Test 02:09:30 Pediatrics (0 to 5 Years) and At-Risk Patients (6 to 64 Years) (1 - PCV) [code = Pneumococcal Vaccine: Pediatrics (0 to 5 Years) and At-Risk Patients (6 to 64 Years) (1 - PCV)] Future Scheduled 2022-06-11 Hepatitis C screening [facility] Test 02:09:30 (procedure) [code = 812763716] Future Scheduled 2022-06-11 Screening for [facility] Test 02:09:30 malignant neoplasm of cervix (procedure) [code = 584908234] Future Scheduled 2022-06-11 INFLUENZA VACCINE [facility] Test 02:09:30 [code = INFLUENZA VACCINE] Future Scheduled 2022-06-11 HEPATITIS B VACCINES [facility] Test 02:09:30 (1 of 3 - 3-dose series) [code = HEPATITIS B VACCINES (1 of 3 - 3-dose series)] Future Scheduled 2022-06-11 COVID-19 VACCINE (#1) [facility] Test 02:09:30 [code = COVID-19 VACCINE (#1)] Future Scheduled 2022-06-11 Pneumococcal Vaccine: [facility] Test 02:09:30 Pediatrics (0 to 5 Years) and At-Risk Patients (6 to 64 Years) (1 - PCV) [code = Pneumococcal Vaccine: Pediatrics (0 to 5 Years) and At-Risk Patients (6 to 64 Years) (1 - PCV)] Future Scheduled 2022-06-11 Hepatitis C screening [facility] Test 02:09:30 (procedure) [code = 399817732] Future Scheduled 2022-06-11 Screening for [facility] Test 02:09:30 malignant neoplasm of cervix (procedure) [code = 516683916] Future Scheduled 2022-06-[address] [facility] Test 02:09:30 [code = INFLUENZA VACCINE] Future Scheduled 2022-06-11 HEPATITIS B VACCINES [facility] Test 02:09:30 (1 of 3 - 3-dose series) [code = HEPATITIS B VACCINES (1 of 3 - 3-dose series)] Future Scheduled 2022-06-11 COVID-19 VACCINE (#1) [facility] Test 02:09:30 [code = COVID-19 VACCINE (#1)] Future Scheduled 2022-06-11 Pneumococcal Vaccine: [facility] Test 02:09:30 Pediatrics (0 to 5 Years) and At-Risk Patients (6 to 64 Years) (1 - PCV) [code = Pneumococcal Vaccine: Pediatrics (0 to 5 Years) and At-Risk Patients (6 to 64 Years) (1 - PCV)] Future Scheduled 2022-06-11 Hepatitis C screening [facility] Test 02:09:30 (procedure) [code = 630832743] Future Scheduled 2022-06-11 Screening for [facility] Test 02:09:30 malignant neoplasm of cervix (procedure) [code = 754181925] Future Scheduled 2022-06-[address] [facility] Test 02:09:30 [code = INFLUENZA VACCINE] Future Scheduled 2022-06-11 HEPATITIS B VACCINES [facility] Test 02:09:30 (1 of 3 - 3-dose series) [code = HEPATITIS B VACCINES (1 of 3 - 3-dose series)] Future Scheduled 2022-06-11 COVID-19 VACCINE (#1) [facility] Test 02:09:30 [code = COVID-19 VACCINE (#1)] Future Scheduled 2022-06-11 Pneumococcal Vaccine: [facility] Test 02:09:30 Pediatrics (0 to 5 Years) and At-Risk Patients (6 to 64 Years) (1 - PCV) [code = Pneumococcal Vaccine: Pediatrics (0 to 5 Years) and At-Risk Patients (6 to 64 Years) (1 - PCV)] Future Scheduled 2022-06-11 Hepatitis C screening [facility] Test 02:09:30 (procedure) [code = 107241907] Future Scheduled 2022-06-11 Screening for [facility] Test 02:09:30 malignant neoplasm of cervix (procedure) [code = 172643734] Future Scheduled 2022-06-11 INFLUENZA VACCINE [facility] Test 02:09:30 [code = INFLUENZA VACCINE] Future Scheduled 2022-06-01 HEPATITIS B VACCINES [facility] Test 16:17:59 (1 of 3 - 3-dose series) [code = HEPATITIS B VACCINES (1 of 3 - 3-dose series)] Future Scheduled 2022-06-01 COVID-19 VACCINE (#1) [facility] Test 16:17:59 [code = COVID-19 VACCINE (#1)] Future Scheduled 2022-06-01 Pneumococcal Vaccine: [facility] Test 16:17:59 Pediatrics (0 to 5 Years) and At-Risk Patients (6 to 64 Years) (1 - PCV) [code = Pneumococcal Vaccine: Pediatrics (0 to 5 Years) and At-Risk Patients (6 to 64 Years) (1 - PCV)] Future Scheduled 2022-06-01 Hepatitis C screening [facility] Test 16:17:59 (procedure) [code = 615364376] Future Scheduled 2022-06-01 Screening for [facility] Test 16:17:59 malignant neoplasm of cervix (procedure) [code = 129035522] Future Scheduled 2022-06-01 INFLUENZA VACCINE [facility] Test 16:17:59 [code = INFLUENZA VACCINE] Future Scheduled 2022-04-25 HEPATITIS B VACCINES [facility] Test 12:43:16 (1 of 3 - 3-dose series) [code = HEPATITIS B VACCINES (1 of 3 - 3-dose series)] Future Scheduled 2022-04-25 COVID-19 VACCINE (#1) [facility] Test 12:43:16 [code = COVID-19 VACCINE (#1)] Future Scheduled 2022-04-25 Pneumococcal Vaccine: [facility] Test 12:43:16 Pediatrics (0 to 5 Years) and At-Risk Patients (6 to 64 Years) (1 - PCV) [code = Pneumococcal Vaccine: Pediatrics (0 to 5 Years) and At-Risk Patients (6 to 64 Years) (1 - PCV)] Future Scheduled 2022-04-25 Hepatitis C screening [facility] Test 12:43:16 (procedure) [code = 277850008] Future Scheduled 2022-04-25 Screening for [facility] Test 12:43:16 malignant neoplasm of cervix (procedure) [code = 779070625] Future Scheduled 2022-04-25 INFLUENZA VACCINE [facility] Test 12:43:16 [code = INFLUENZA VACCINE] Future Scheduled 2022-02-27 HEPATITIS B VACCINES [facility] Test 05:24:42 (1 of 3 - 3-dose series) [code = HEPATITIS B VACCINES (1 of 3 - 3-dose series)] Future Scheduled 2022-02-27 COVID-19 VACCINE (#1) [facility] Test 05:24:42 [code = COVID-19 VACCINE (#1)] Future Scheduled 2022-02-27 Pneumococcal Vaccine: [facility] Test 05:24:42 Pediatrics (0 to 5 Years) and At-Risk Patients (6 to 64 Years) (1 - PCV) [code = Pneumococcal Vaccine: Pediatrics (0 to 5 Years) and At-Risk Patients (6 to 64 Years) (1 - PCV)] Future Scheduled 2022-02-27 Hepatitis C screening [facility] Test 05:24:42 (procedure) [code = 709187788] Future Scheduled 2022-02-27 Screening for [facility] Test 05:24:42 malignant neoplasm of cervix (procedure) [code = 730050222] Future Scheduled 2022-02-27 INFLUENZA VACCINE [facility] Test 05:24:42 [code = INFLUENZA VACCINE] Future Scheduled 2022-02-27 HEPATITIS B VACCINES [facility] Test 05:24:42 (1 of 3 - 3-dose series) [code = HEPATITIS B VACCINES (1 of 3 - 3-dose series)] Future Scheduled 2022-02-27 COVID-19 VACCINE (#1) [facility] Test 05:24:42 [code = COVID-19 VACCINE (#1)] Future Scheduled 2022-02-27 Pneumococcal Vaccine: [facility] Test 05:24:42 Pediatrics (0 to 5 Years) and At-Risk Patients (6 to 64 Years) (1 - PCV) [code = Pneumococcal Vaccine: Pediatrics (0 to 5 Years) and At-Risk Patients (6 to 64 Years) (1 - PCV)] Future Scheduled 2022-02-27 Hepatitis C screening [facility] Test 05:24:42 (procedure) [code = 348975726] Future Scheduled 2022-02-27 Screening for [facility] Test 05:24:42 malignant neoplasm of cervix (procedure) [code = 896191198] Future Scheduled 2022-02-27 INFLUENZA VACCINE [facility] Test 05:24:42 [code = INFLUENZA VACCINE] Future Scheduled 2022-02-27 HEPATITIS B VACCINES [facility] Test 05:24:42 (1 of 3 - 3-dose series) [code = HEPATITIS B VACCINES (1 of 3 - 3-dose series)] Future Scheduled 2022-02-27 COVID-19 VACCINE (#1) [facility] Test 05:24:42 [code = COVID-19 VACCINE (#1)] Future Scheduled 2022-02-27 Pneumococcal Vaccine: [facility] Test 05:24:42 Pediatrics (0 to 5 Years) and At-Risk Patients (6 to 64 Years) (1 - PCV) [code = Pneumococcal Vaccine: Pediatrics (0 to 5 Years) and At-Risk Patients (6 to 64 Years) (1 - PCV)] Future Scheduled 2022-02-27 Hepatitis C screening [facility] Test 05:24:42 (procedure) [code = 787985445] Future Scheduled 2022-02-27 Screening for [facility] Test 05:24:42 malignant neoplasm of cervix (procedure) [code = 363447271] Future Scheduled 2022-02-27 INFLUENZA VACCINE [facility] Test 05:24:42 [code = INFLUENZA VACCINE] Future Scheduled 2022-02-27 HEPATITIS B VACCINES [facility] Test 05:24:42 (1 of 3 - 3-dose series) [code = HEPATITIS B VACCINES (1 of 3 - 3-dose series)] Future Scheduled 2022-02-27 COVID-19 VACCINE (#1) [facility] Test 05:24:42 [code = COVID-19 VACCINE (#1)] Future Scheduled 2022-02-27 Pneumococcal Vaccine: [facility] Test 05:24:42 Pediatrics (0 to 5 Years) and At-Risk Patients (6 to 64 Years) (1 - PCV) [code = Pneumococcal Vaccine: Pediatrics (0 to 5 Years) and At-Risk Patients (6 to 64 Years) (1 - PCV)] Future Scheduled 2022-02-27 Hepatitis C screening [facility] Test 05:24:42 (procedure) [code = 661763759] Future Scheduled 2022-02-27 [facility] 05:24:42 malignant neoplasm of cervix (procedure) [code = 054502384] Future Scheduled 2022-02-27 INFLUENZA VACCINE [facility] Test 05:24:42 [code = INFLUENZA VACCINE] Future Scheduled 2022-02-27 HEPATITIS B VACCINES [facility] Test 05:24:42 (1 of 3 - 3-dose series) [code = HEPATITIS B VACCINES (1 of 3 - 3-dose series)] Future Scheduled 2022-02-27 COVID-19 VACCINE (#1) [facility] Test 05:24:42 [code = COVID-19 VACCINE (#1)] Future Scheduled 2022-02-27 Pneumococcal Vaccine: [facility] Test 05:24:42 Pediatrics (0 to 5 Years) and At-Risk Patients (6 to 64 Years) (1 - PCV) [code = Pneumococcal Vaccine: Pediatrics (0 to 5 Years) and At-Risk Patients (6 to 64 Years) (1 - PCV)] Future Scheduled 2022-02-27 Hepatitis C screening [facility] Test 05:24:42 (procedure) [code = 875428552] Future Scheduled 2022-02-27 Screening for [facility] Test 05:24:42 malignant neoplasm of cervix (procedure) [code = 763351296] Future Scheduled 2022-02-27 INFLUENZA VACCINE [facility] Test 05:24:42 [code = INFLUENZA VACCINE] Future Scheduled 2022-02-27 HEPATITIS B VACCINES [facility] Test 05:24:42 (1 of 3 - 3-dose series) [code = HEPATITIS B VACCINES (1 of 3 - 3-dose series)] Future Scheduled 2022-02-27 COVID-19 VACCINE (#1) [facility] Test 05:24:42 [code = COVID-19 VACCINE (#1)] Future Scheduled 2022-02-27 Pneumococcal Vaccine: [facility] Test 05:24:42 Pediatrics (0 to 5 Years) and At-Risk Patients (6 to 64 Years) (1 - PCV) [code = Pneumococcal Vaccine: Pediatrics (0 to 5 Years) and At-Risk Patients (6 to 64 Years) (1 - PCV)] Future Scheduled 2022-02-27 Hepatitis C screening [facility] Test 05:24:42 (procedure) [code = 538154826] Future Scheduled 2022-02-27 Screening for [facility] Test 05:24:42 malignant neoplasm of cervix (procedure) [code = 737125184] Future Scheduled 2022-02-27 INFLUENZA VACCINE [facility] Test 05:24:42 [code = INFLUENZA VACCINE] Future Scheduled 2022-02-27 HEPATITIS B VACCINES [facility] Test 05:24:42 (1 of 3 - 3-dose series) [code = HEPATITIS B VACCINES (1 of 3 - 3-dose series)] Future Scheduled 2022-02-27 COVID-19 VACCINE (#1) [facility] Test 05:24:42 [code = COVID-19 VACCINE (#1)] Future Scheduled 2022-02-27 Pneumococcal Vaccine: [facility] Test 05:24:42 Pediatrics (0 to 5 Years) and At-Risk Patients (6 to 64 Years) (1 - PCV) [code = Pneumococcal Vaccine: Pediatrics (0 to 5 Years) and At-Risk Patients (6 to 64 Years) (1 - PCV)] Future Scheduled 2022-02-27 Hepatitis C screening [facility] Test 05:24:42 (procedure) [code = 492799079] Future Scheduled 2022-02-27 Screening for [facility] Test 05:24:42 malignant neoplasm of cervix (procedure) [code = 914867301] Future Scheduled 2022-02-27 INFLUENZA VACCINE [facility] Test 05:24:42 [code = INFLUENZA VACCINE] Future Scheduled 2022-02-27 HEPATITIS B VACCINES [facility] Test 05:24:42 (1 of 3 - 3-dose series) [code = HEPATITIS B VACCINES (1 of 3 - 3-dose series)] Future Scheduled 2022-02-27 COVID-19 VACCINE (#1) [facility] Test 05:24:42 [code = COVID-19 VACCINE (#1)] Future Scheduled 2022-02-27 Pneumococcal Vaccine: [facility] Test 05:24:42 Pediatrics (0 to 5 Years) and At-Risk Patients (6 to 64 Years) (1 - PCV) [code = Pneumococcal Vaccine: Pediatrics (0 to 5 Years) and At-Risk Patients (6 to 64 Years) (1 - PCV)] Future Scheduled 2022-02-27 Hepatitis C screening [facility] Test 05:24:42 (procedure) [code = 384331187] Future Scheduled 2022-02-27 [facility] 05:24:42 malignant neoplasm of cervix (procedure) [code = 578938912] Future Scheduled 2022-02-27 [facility] 05:24:42 [code = INFLUENZA VACCINE] Future Scheduled 2021-07-22 COVID-19 [facility]ACCINE (1) [facility] 13:11:04 [code = COVID-19 VACCINE (1)] Future Scheduled 2021-07-22 Hepatitis C screening [facility] Test 13:11:04 (procedure) [code = 325400282] Future Scheduled 2021-07-22 [facility] Test 13:11:04 malignant neoplasm of cervix (procedure) [code = 862000994] Future Scheduled 2021-07-22 INFLUENZA VACCINE [facility] Test 13:11:04 [code = INFLUENZA VACCINE] Encounters Start End Encounter Admission Attending Care Care Encounter Source Date/Time Date/Time Type Type Clinicians Facility Department ID 2022-10-26 Preadmit nullFlavo [id number] Memoria 14:29:15 r [facility] 68 [facility] 2022-10-26 [address]patient nullFlavo [facility] [id number] Memoria 14:29:15 r [facility] 05 [facility] 2022-10-26 [address]Flavo [facility] [id number] Memoria 14:29:15 r Medical 06 [facility] 2022-08-28 Outpatient [facility] [id number] [place] 10:54:07 [id number] [facility] 2022-04-29 Outpatient [facility] [id number] [place] 09:02:27 [id number] [facility] 2022-04-28 Outpatient [facility] [id number] [place] 12:17:07 [id number] [facility] 2021-12-29 Outpatient [facility] [id number] [place] 11:56:31 [id number] [facility] 2021-12-19 Outpatient [facility] [id number] [place] 14:05:12 [id number] [facility] 2021-12-12 Outpatient [facility] [id number] [place] 12:11:07 [id number] [facility] 2021-12-05 Outpatient [facility] [id number] [place] 20:09:51 [id number] [facility] 2021-10-28 Outpatient [facility] [id number] [place] 17:04:22 [id number] [facility] 2021-07-[address]Flavo [facility] [id number] Memoria 00:10:30 r Medical 05 [facility] 2021-07-22 Preadmit nullFlavo [id number] [facility] 00:10:30 [facility] [facility] [place] 2021-07-[address]avo [facility] [id number] Memoria 00:10:30 r Medical 06 l [facility] 2021-04-[address] [facility] [id number] Univers 02:13:[address] [facility] 2021-04-[address] [facility] [id number] Univers [facility] [facility] [id number] Univers 17:46:[address] [facility] 2022-10-24 2022-10-24 Outpatient Daniels_b DMG G [id number] -2022 Devoted 00:00:00 00:00:00 0506 Medica l Group 2022-08-28 2022-08-28 Outpatient Daniels_b DMG DMG 13211 -2022 Devoted 00:00:00 00:00:00 0310 Medica l Group 2022-08-28 2022-08-28 Outpatient Daniels_b DMG DMG [id number] -2022 Devoted 00:00:00 00:00:00 0315 Medica l Group 2022-04-09 2022-04-09 Outpatient Nodal_J DMG DMG 89601-1 022 Devoted 00:00:00 00:00:00 1020 Medica l Group 2022-01-02 2022-01-02 Outpatient Deshazo_T DMG DMG [id number] -2021 Devoted 03:37:00 03:37:00 0715 Medica l Group 2021-12-15 2021-12-15 [facility] [id number] 782 [place] 08:00:00 08:00:00 [facility] 2021-12-02 2021-12-02 Travel 1.2.840.1 1.2.916.961 3584 [id number] Methodi 00:00:00 00:00:[address] 3.430.2.7 0.2.7.3.698 Ho spita .3.306512 084.8 l .8 2021-12-02 2021-12-02 Travel 1.2.840.1 1.2.046.951 1206 169411 Methodi 00:00:00 00:00:[address] 3.430.2.7 0.2.7.3.698 Ho spita .3.640813 084.8 l .8 2021-11-13 2021-11-13 Transcribe [place], 1.2.840.1 [id number] 21 [id number] Methodi 00:00:00 00:00:00 Orders Jose Miguel G. 24743.1.[address] 3.430.2.7 Hospit a .3.590960 l .8 2021-11-13 2021-11-13 Transcribe [place], 1.2.840.1 [id number] 21 [id number] Methodi 00:00:00 00:00:00 Orders Jose Miguel G. 20179.1.[address] 3.430.2.7 Hospit a .3.105374 l .8 2021-11-05 2021-11-05 Outpatient Deshazo_T [facility] 60689 -2021 Devoted 12:00:00 12:00:00 0518 Medica l Group 2021-10-29 2021-10-29 Telephone Rsoy, 1.2.840.1 [id number] 402 [id number] Methodi 00:00:00 00:00:[address] Mohamed 3.430.2.7 Hospit a .3.381130 l .8 2021-10-29 2021-10-29 Telephone Rosy, 1.2.840.1 [id number] 390 [id number] Methodi 00:00:00 00:00:[address] Mohamed 3.430.2.7 Hospit a .3.400307 l .8 2021-08-20 2021-08-20 Outpatient Deshazo_T [facility] 62763 -2021 Devoted 12:30:00 12:30:00 0302 Medica l Group 2021-07-08 2021-07-08 Office Seth, 1.2.840.1 [id number] 6752 Methodi 13:00:00 14:25:36 Visit Bessie 44522.1.[address] [place] 3.430.2.7 Hosp jo-ann .3.979500 l .8 2021-07-08 2021-07-08 Telephone Anthony, 1.2.840.1 [id number] 2100 626257 Methodi 00:00:00 00:00:[address] 3.430.2.7 Hospit a .3.986385 l .8 2021-07-08 2021-07-08 Travel 1.2.840.1 1.2.240.507 4316 680804 Methodi 00:00:00 00:00:[address] 3.430.2.7 0.2.7.3.698 Ho spita .3.433197 084.8 l .8 2021-07-03 2021-07-03 CAV Melany 2.16.840. 2.16.840.1. CLAC [id number] Devoted 19:00:00 20:00:00 Vladimir 1.776848. 617143.4.6. 467 Medical 4.6.67570 [id number] 2021-07-03 2021-07-03 Telephone Seth, 1.2.840.1 [id number] 2100 [id number] Methodi 00:00:00 00:00:[address] [place] 3.430.2.7 Hosp jo-ann .3.688943 l .8 2021-06-24 2021-06-24 Outpatient Deshazo_T [facility] 36170 -2021 Devoted 05:31:00 05:31:00 0104 Medica l Group 2021-06-232021-06-23 Telephone Anthony, 1.2.840.1 [id number] 2100 [id number] Methodi 00:00:00 00:00:[address] 3.430.2.7 Hospit a .3.450375 l .8 2021-06-04 2021-06-18 [facility] Sivan Stewart 1.2.840.1 1041 25536 [id number] Methodi 18:20:00 18:13:00 Encounter Brasher, Rachel Lew 09588.1.[address] Nagel, Holden Atkinsendra 3.430.2.7 Hospita Shanda Shahid Kalen .3.131334 l Aurelio Schumacher .8 2021-06-16 2021-06-16 Anesthesia Yousif, 1.2.840.1 [id number] Methodi 23:59:59 23:59:59 Event Alesia Coelho 15747.1.[address] 3.430.2.7 Hospit a .3.121213 l .8 2021-06-16 2021-06-16 Surgery Joe, 1.2.840.1 [id number] 155037 6416 Methodi 13:30:00 17:45:[address] [facility] 3.430.2.7 Hosp jo-ann .3.335689 l .8 2021-06-16 2021-06-16 Anesthesia Jose Carlos, 1.2.840.1 [id number] 405 [id number] Methodi 15:19:00 17:19:00 Event Sethlachelleayo 53478.1.1 309 s t V. 3.430.2.7 Hospit a .3.715827 l .8 2021-06-10 2021-06-10 Surgery Juwan You 1.2.840.1 [id number] 17656 88124 Methodi 08:00:00 10:30:[address] 3.430.2.7 Hospit a .3.579935 l .8 2021-06-10 2021-06-10 Anesthesia Dco, 1.2.840.1 [id number] 205 [id number] Methodi 08:26:00 09:40:00 Event Sofi 94886.1.[address] Marquita 3.430.2.7 Hosp jo-ann .3.094293 l .8 2021-06-09 2021-06-09 Prep for Robert, 1.2.840.1 [id number] 861 [id number] Methodi 00:00:00 00:00:00 Surgery Gayle 49312.1.[address] 3.430.2.7 Hospit a .3.426617 l .8 2021-06-09 2021-06-09 Prep for Robert, 1.2.840.1 [id number] 375 8011478 Methodi 00:00:00 00:00:00 Surgery Gayle 87722.1.[address] 3.430.2.7 Hospit a .3.824027 l .8 2021-06-05 2021-06-05 Anesthesia Frankie Chowdhury 1.2.840.1 [id number] Methodi 10:16:00 11:41:00 Event Chandler Silverman 23794.1.[address] 3.430.2.7 Hospit a .3.636837 l .8 2021-06-05 2021-06-05 Surgery Juwan You 1.2.840.1 [id number] 31489 58288 Methodi 09:30:00 11:05:[address] 3.430.2.7 Hospit a .3.017922 l .8 2021-06-03 2021-06-03 Prep for Anthony, 1.2.840.1 [id number] 86249 13383 Methodi 00:00:00 00:00:00 Surgery Forrest 09928.1.[address] 3.430.2.7 Hospit a .3.564796 l .8 2021-06-03 2021-06-03 Telephone Ureña, 1.2.840.1 [id number] 014 8554654 Methodi 00:00:00 00:00:00 Crysandria 00463.1.1 218 s t 3.430.2.7 Hospit a .3.996063 l .8 2021-05-28 2021-05-28 Outpatient Adams_R DMG [facility] 52767-0 021 Devoted 05:00:00 05:00:00 1208 Medica l Group 2021-05-27 2021-05-27 Patient Tam, 1.2.840.1 [id number] 225 [id number] Methodi 00:00:00 00:00:00 Outreach Maria M 49680.1.[address] 3.430.2.7 Hospit a .3.344591 l .8 2021-05-27 2021-05-27 Travel 1.2.840.1 1.2.855.061 7627 305729 Methodi 00:00:00 00:00:[address] 3.430.2.7 0.2.7.3.698 Ho spita .3.122327 084.8 l .8 2021-05-27 2021-05-27 Orders Boles, 1.2.840.1 [id number] 2100 451911 Methodi 00:00:00 00:00:00 Only Anila 69232.1.[address] 3.430.2.7 Hospit a .3.560213 l .8 2021-05-26 2021-05-26 Outpatient Adams_R DMG DMG 80850-9 021 Devoted 03:30:00 03:30:00 1206 Medica l Group 2021-05-26 2021-05-26 Telephone Anthony, 1.2.840.1 [id number] 2099 536761 Methodi 00:00:00 00:00:[address] 3.430.2.7 Hospit a .3.894050 l .8 2021-05-19 2021-05-25 Hospital Juwan You 1.2.840.1 [id number] 2099 [id number] Methodi 06:00:00 15:59:00 Encounter Tom Barber 96241.1.[address] AwMarilu carcamoun 3.430.2.7 Hospita .3.871831 l .8 2021-05-21 2021-05-21 Outpatient DMG DMG 26159-2 021 Devoted 03:30:00 03:30:00 1201 Medica l Group 2021-05-19 2021-05-19 Anesthesia Adam, 1.2.840.1 [id number] Methodi 18:45:00 20:31:00 Event Sukhjinder 20113.1.[address] Kendall 3.430.2.7 Hospit a .3.646233 l .8 2021-05-19 2021-05-19 Surgery Juwan You 1.2.840.1 [id number] 91 Methodi 18:50:00 19:55:[address] 3.430.2.7 Hospit a .3.712680 l .8 2021-05-19 2021-05-19 Anesthesia Sukhjinder Medina 1.2.840.1 [id number] Methodi 12:00:00 15:14:00 Event Hanane Ledezma 69870.1.[address] 3.430.2.7 Hospit a .3.307165 l .8 2021-05-19 2021-05-19 Surgery Juwan You 1.2.840.1 [id number] 27 Methodi 12:05:00 14:45:[address] 3.430.2.7 Hospit a .3.669498 l .8 2021-05-19 2021-05-19 Travel 1.2.840.1 1.2.977.882 0172 728333 Methodi 00:00:00 00:00:[address] 3.430.2.7 0.2.7.3.698 Ho spita .3.724316 084.8 l .8 2021-05-14 2021-05-14 Telephone Corin, 1.2.840.1 [id number] Methodi 00:00:00 00:00:[address] 3.430.2.7 Hospit a .3.550929 l .8 2021-05-14 2021-05-14 Prep for Anthony, 1.2.840.1 [id number] 56059 Methodi 00:00:00 00:00:00 Surgery Forrest 20500.1.[address] 3.430.2.7 Hospit a .3.798454 l .8 2021-05-13 2021-05-13 Orders Doctor JOANNA 1.2.840.114 [id number] Univers 00:00:00 00:00:00 Only Unassigned, BEKA 350.1.13.10 ity of [place] [facility] 4.2.7.2.686 Baljinder as [phone] [address] 2021-05-12 2021-05-12 Office KenyattaJuwan 1.2.840.1 [id number] 84 Methodi 09:00:00 09:32:[address] 3.430.2.7 Hospit a .3.312815 l .8 2021-05-12 2021-05-12 Outpatient KENYATTAASHLEYY [facility] [id number] 9823 [place] 00:00:00 00:00:[address] 2021-05-12 2021-05-12 Telephone Anthony, 1.2.840.1 [id number] 2100 454176 Methodi 00:00:00 00:00:[address] 3.430.2.7 Hospit a .3.470045 l .8 2021-05-12 2021-05-12 Travel 1.2.840.1 1.2.049.252 7881 260891 Methodi 00:00:00 00:00:[address] 3.430.2.7 0.2.7.3.698 Ho spita .3.612465 084.8 l .8 2021-05-08 2021-05-08 Orders Anthony, 1.2.840.1 [id number] Methodi 00:00:00 00:00:00 Only Forrest 43539.1.[address] 3.430.2.7 Hospit a .3.505301 l .8 2021-05-08 2021-05-08 Telephone Ramana 1.2.840.1 [id number] 21 [id number] Methodi 00:00:00 00:00:[address] 3.430.2.7 Hospit a .3.097779 l .8 2021-05-05 2021-05-05 Office Juwan You 1.2.840.1 [id number] 60 Methodi 14:00:00 15:41:[address] 3.430.2.7 Hospit a .3.157862 l .8 2021-05-05 2021-05-05 Travel 1.2.840.1 1.2.242.588 5240 182838 Methodi 00:00:00 00:00:[address] 3.430.2.7 0.2.7.3.698 Ho spita .3.369742 084.8 l .8 2021-05-01 2021-05-01 Telephone Joe, 1.2.840.1 [id number] 2100 830780 Methodi 00:00:00 00:00:[address] [facility] 3.430.2.7 Hosp jo-ann .3.695695 l .8 2021-04-08 2021-04-08 Outpatient R CASEY [facility] [id number] 799 Univers 09:00:00 09:00:00 MONA low of [facility] 2021-03-24 2021-03-24 Transition Misha Garcia 1.2.840.114 878 22756 Univers 00:00:00 00:00:00 of Care Missy Thomas 350.1.13.10 it y of [place] [phone] [place] [address] [place] 2021-03-19 2021-03-21 [facility] Jimena Easton 1.2.840.1 1007 711070 [id number] Univers 08:24:00 23:08:00 Encounter DiasEze lombardo 56243.1.1 ity of [place] 3.104.2.7 [place] .3.751453 Medica l .8 [place] 2021-03-21 2021-03-21 Outpatient [facility] [id number] 021 Devoted 08:01:00 08:01:00 1001 Medica l Group 2021-03-19 2021-03-19 Orders Doctor 1.2.840.2 [id number] Univers 00:00:00 00:00:00 Only Unassigned, 32009.1.1 ity of [place] 3.104.2.7 [place] .3.145091 Medica l .8 [place] 2021-03-19 2021-03-19 Travel 1.2.840.1 1.2.921.821 5139 4264 Univers 00:00:00 00:00:00 13295.1.1 350.1.13.10 ity of 3.104.2.7 4.[place]7.3.698 [place] .3.218561 084.8 Medica l .8 [place] 2021-01-21 2021-01-29 Inpatient [facility] 41808 20500 Memoria 15:50:00 20:14:[address] 2021-01-21 2021-01-29 Inpatient [facility] 14293 90756 Memoria 15:50:00 20:14:[address] 2021-01-21 2021-01-29 Outpatient Aydee, [facility] [id number] 64667 10:50:00 15:14:00 [place] [address] 2021-01-21 2021-01-29 Inpatient U AYDEE, [facility] CAR 7512 [facility] 10:50:00 15:14:00 MONISHA 2021-01-24 2021-01-24 Outpatient [facility] [id number] 021 Devoted 08:00:00 08:00:00 0806 Medica l [facility] 2021-01-21 2021-01-21 Outpatient Aydee, [facility] [id number] 10:50:00 10:50:00 Monisha 12 2021-01-03 2021-01-03 Office DOMINIQUE Diane 1.2.840.114 [id number] 903 07:44:43 09:30:54 Visit Alexandr ALTMAN 350.1.13.58 MEDICAL 9.2.7.2.686 [facility] [phone] 1 2021-01-03 2021-01-03 Office DOMINIQUE Diane 1.2.840.114 [id number] 903 [place] 07:44:43 09:30:54 Visit Alexandr ALTMAN 350.1.13.58 [facility] MED[facility] 9.2.7.2.686 [facility] [id number] 1 2020-12-26 2020-12-26 Outpatient R LAMIN [facility] [id number] Univers 10:30:00 10:30[facility] 2020-12-24 2020-12-25 Outpatient nullFlavo [facility] 833 [id number] Memoria 15:32:00 04:59:00 r Disease 11 l [facility] 2020-12-24 2020-12-25 Outpatient nullFlavo Digestive 654 [id number] Memoria 15:32:00 04:59:00 r Disease 11 l [facility] 2020-12-24 2020-12-24 Outpatient Wright, [facility] [id number] 10:32:00 23:59:00 Hui Madden 2020-12-24 2020-12-24 Outpatient WRIGHT, [facility] 7511 [facility] 10:32:00 23:59:00 HUI 2020-11-12 2020-11-12 Outpatient R CARLOS [facility] [id number] Univers 09:00:00 09:00:00 [facility] 2020-10-27 2020-10-27 Keyona Kimble [facility] 1.2.840.114 [id number] 00:00:00 00:00:00 (Out) Sendbhavana Lehman 350.1.13.10 [place] 4.2.7.2.686 [facility] [phone] [facility] 2020-10-27 2020-10-27 Keyona Kimble, NHIMELDA 1.2.840.114 [id number] 98 Univers 00:00:00 00:00:00 (Out) Oz Lehman 350.1.13.10 ity of [place] [phone] Me dical nal 059 [facility] 2020-10-24 2020-10-24 Orders Doctor JOANNA 1.2.840.114 [id number] 42 00:00:00 00:00:00 Only Unassigned, BEKA 350.1.13.10 [place] [facility] 4.2.7.2.686 [id number] 009 2020-10-24 2020-10-24 Orders Doctor JOANNA 1.2.840.114 [id number] 42 Univers 00:00:00 00:00:00 Only Unassigned, BEKA 350.1.13.10 ity of [place] [facility] 4.2.7.2.686 Baljinder as [phone] [facility] 009 [place] 2020-09-24 2020-09-24 Refill Gonzalez, [facility] 1.2.840.114 [id number] 24 00:00:00 00:00:00 Jose Luis Lehman 350.1.13.10 [place] 4.2.7.2.686 Professio [phone] [facility] 220 [facility] 2020-09-24 2020-09-24 Refill Carlos, [facility] 1.2.840.114 [id number] 24 Univers 00:00:00 00:00:00 Jose Luis Lehman 350.1.13.10 i ty of [place] [phone] Me dical nal 220 [facility] 2020-09-09 2020-09-09 Patient Daniel NHIMELDA 1.2.840.114 [id number] 00:00:00 00:00:00 Outreach Earl SMITH 350.1.13.10 [facility] 4.2.7.2.686 PAVILLION [id number] 388 2020-09-09 2020-09-09 Patient Daniel, [facility] 1.2.840.114 [id number] Univers 00:00:00 00:00:00 Outreach Earl PRIMARY 350.1.13.10 i ty of [place]2.[place] [phone] Dc dical [address] 2020-08-06 2020-08-06 Outpatient R CARLOS [facility] [id number] Univers 14:30:00 14:30:[address] [facility] 2020-08-05 2020-08-05 [facility] 09734 98531 Univers 13:30:00 13:30:[address] [facility] 2020-07-23 2020-07-23 [facility] 1.2.840.114 [id number] [id number] [facility] 13:39:08 23:59:00 Encounter Deja PRIMARY 350.1.13.10 ity of [place]2.[place] [phone] Dc dical 807 [place] 2020-07-23 2020-07-23 Office [facility] 1.2.043.138 8151 5976 13:31:20 14:37:36 Visit Deja PRIMARY 350.1.13.10 A CARE 4.2.7.2.686 PAVILLION [phone] [facility] 2020-07-23 2020-07-23 Office [facility] 1.2.664.272 0639 5976 [facility] 13:31:20 14:37:36 Visit Deja PRIMARY 350.1.13.10 ity of [place]2.[place] [phone] Dc dical 198 [place] 2020-07-23 2020-07-23 Outpatient [facility] 60339 [id number] Univers 13:30:00 13:30:[address] [facility] 2020-07-09 2020-07-09 Outpatient R [facility] [id number] Univers 09:00:00 09:00:00 ity of [facility] 2020-07-03 2020-07-03 [facility] 1.2.588.151 6959 0697 Univers 00:00:00 00:00:00 Sendbhavana Lehman 350.1.13.10 it[place] of [place] [phone] [address] 2020-06-27 2020-06-27 [facility] 1.2.840.114 [id number] Univers 10:05:43 11:00:00 Visit Oz Lehman 350.1.13.10 ity of [place]2.[place] [phone] [address] 2020-06-27 2020-06-27 Office Lamin [facility] 1.2.840.114 [id number] 29 Univers 10:05:43 11:00:00 Visit Oz LEHMAN 350.1.13.10 [facility] 4.2.7.2.[place] [phone] [address] 2020-06-27 2020-06-27 Outpatient R [facility] [id number] Univers 09:30:00 11:00:[address] [facility] 2020-06-27 2020-06-27 Outpatient [facility] [id number] Univers 09:30:00 09:30:[address] [facility] 2020-05-28 2020-05-28 Laboratory Pc, Adc Echo Room 1 - [facility] 1 .2.840.114 [id number] Univers 08:01:11 08:48:06 Only Oz Kimble 350.1.13. 10 it[place] of [place] [phone] [address] 2020-05-28 2020-05-28 Outpatient R [facility] [id number] Univers 08:00:00 08:00:[address] [facility] 2020-05-10 2020-05-10 Nurse Visit, Adc Nurse [facility] 1.2.840.1 14 [id number] Univers 08:31:07 08:43:46 Visit Oz Kimble 350.1.13. 10 ity of [place] [phone] Dc dicfl nal 059 [facility] 2020-05-10 2020-05-10 Outpatient [facility] [id number] Univers 08:30:00 08:30:[address] [facility] 2020-05-07 2020-05-07 Outpatient R [facility] [id number] Univers 08:00:00 08:00:00 ity of [facility] 2020-05-01 2020-05-01 [facility] 1.2.840.114 [id number] Univers 11:02:55 12:04:48 Visit Jose Luis Lehman 350.1.13.10 i ty of [place] [phone] [facility] 220 [facility] 2020-05-01 2020-05-01 Outpatient R CARLOS [facility] [id number] Univers 10:30:00 10:30:00 [facility] 2020-04-25 2020-04-25 Office [facility] 1.2.840.114 [id number] Univers 10:07:58 10:48:50 Visit Oz Lehman 350.1.13.10 ity of [place] [phone] [place] [id number] [facility] 2020-04-25 2020-04-25 Outpatient [facility] [id number] Univers 10:00:00 10:00:[address] [facility] 2020-04-25 2020-04-25 Orders Doctor MARSHALL 1.2.840.114 [id number] Univers 00:00:00 00:00:00 Only Unassigned, BEKA 350.1.13.10 it[place] of [place] [facility] 4.2.7.2.686 Baljinder as [phone] [address] 2020-04-05 2020-04-05 Outpatient R [facility] [id number] Univers 09:30:00 09:30:[address] [facility] 2020-04-03 2020-04-03 Cloth Sander 2, Adc Lab [facility] 1.2.840.114 [id number] Univers 13:13:38 13:28:38 Visit Adum, Mona Crawley Levi 350.1.13.10 ity of [place] [phone] Dc dical nal 353 [facility] 2020-04-03 2020-04-03 Outpatient R AD, [facility] [id number] Univers 13:00:00 13:00:[address] [facility] 2020-04-02 2020-04-02 [facility] 1.2.840.114 [id number] Univers 09:00:33 09:54:22 Visit Mona L Levi 350.1.13.10 ity of [place]2.[place] [phone] Dc dical nal 134 [facility] 2020-04-02 2020-04-02 Outpatient R ADUM, [facility] [id number] Univers 08:30:00 08:30:[address] [facility] 2020-04-02 2020-04-02 Outpatient R AD, [facility] [id number] Univers 08:30:00 08:30:[address] [facility] 2020-04-02 2020-04-02 Emergency Khan, [facility] 1.2.840.114 [id number] Univers 00:24:00 01:09:00 Marlin Lehman 350.1.13.10 i [place] [phone] [facility] [address] [place] 2020-04-02 2020-04-02 Orders Doctor JOANNA 1.2.840.114 [id number] Univers 00:00:00 00:00:00 Only Unassigned, BEKA 350.1.13.10 ity of [place] [facility] 4.2.7.2.686 Baljinder as [phone] [facility] [address] [place] 2020-03-16 2020-03-16 Telephone Frank [facility] 1.2.840.114 [id number] Univers 00:00:00 00:00:00 Yury Lehman 350.1.13.10 [place] [phone] [facility] 134 [facility] 2020-03-08 2020-03-08 [facility] [id number] Univers 11:00:00 11:00:00 LIMA low o f [facility] 2020-03-07 2020-03-07 Telephone [facility] 1.2.840.114 [id number] Univers 00:00:00 00:00:00 Lima Lehman 350.1.13.10 [place] [phone] [facility] 188 [facility] 2020-02-06 2020-02-06 Outpatient R [facility] [id number] Univers 09:30:00 09:30:[address] [facility] 2020-02-06 2020-02-06 [facility] 1.2.840.114 [id number] Univers 08:57:01 09:24:05 Visit Brandon Lehman 350.1.13.10 i ty of [place] [phone] [facility] 044 [facility] 2020-01-25 2020-01-31 Inpatient 1 Rei Waldron [facility] GPY [id number] 21:31:00 18:15:00 Rei Waldron [facility] 2020-01-24 2020-01-24 Outpatient R DIDIER [facility] [id number] Univers 09:45:00 09:45:[address] [facility] 2020-01-23 2020-01-23 Outpatient R DIDIER [facility] [id number] Univers 10:30:00 10:30:[address] [facility] 2019-12-18 2019-12-18 Outpatient R BARRERA [facility] [id number] Univers 08:00:00 08:00:[address] [facility] 2019-12-04 2019-12-04 Outpatient Eduin JOHN [facility] [id number] Univers 14:15:00 14:15:[address] [facility] 2019-11-06 2019-11-06 Telemedicviraj RustNIDHIIT 1.2.840.114 [id number] Univers 07:49:37 08:46:52 ne Visit Yissel Caron 350.1.13.10 ity [facility] 4.2.7.2.686 Baljinder as BANK [phone] [facility] BLDG. [address] [place] 2019-11-06 2019-11-06 Outpatient R BARRERA [facility] [id number] Univers 08:00:00 08:00:[address] [facility] 2019-10-01 2019-10-01 Emergency [facility] [id number] Univers 15:47:29 19:01:00 Stacie Lehman 350.1.13.10 i ty [facility] [id number] [facility] s [place] [phone] [place] [id number] [place] 2019-09-05 2019-09-05 Outpatient Eduin MATAARPITA [facility] [id number] Univers 13:30:00 13:30:[address] [facility] 2019-08-28 2019-08-28 Outpatient Eduin RUVALCABAZEKE [facility] [id number] Univers 15:00:00 15:00:[address] [facility] 2019-02-27 2019-02-27 [facility] 1.2.840.114 [id number] Univers 00:00:00 00:00:00 Adán T SPECIALTY 350.1.13.10 [place] [phone] Dc jim MORALES [address] [place] [address] 2019-02-25 2019-02-25 [facility]phone [facility] 1.2.840.114 [id number] Univers 00:00:00 00:00:00 Adán T SPECIALTY 350.1.13.10 [place] [phone] Dc jim MORALES 205 [facility] 2019-02-22 2019-02-[address] [facility].8 40.114 [id number] Univers 09:19:22 23:59:00 Encounter Outpt-Josy, Ccl [place] 350.1.13.10 ity of Hospital 4.2.7.2.686 Baljinder as [phone] [address] 2019-02-22 2019-02-22 [facility]8 40.114 [id number] Univers 08:00:00 09:18:00 Encounter Outpt-Josy, Ccl [place] 350.1.13.10 ity of Hospital 4.2.7.2.686 Baljinder as [id number] [address] 2019-02-17 2019-02-17 Office Germán [facility] 1.2.840.114 [id number] Univers 13:09:08 13:54:[address] [facility] 350.1.13.10 ity of [place].2.686 [place] [facility] [phone] [facility] [address] 2019-02-17 2019-02-17 Orders Doctor JOANNA 1.2.840.114 [id number] Univers 00:00:00 00:00:00 Only Unassigned, BEKA 350.1.13.10 ity of [place] [facility] 4.2.7.2.686 Baljinder as [phone] [facility] [address] 2019-01-25 2019-01-25 Telephone Traci Kimble [id number] Univers 00:00:00 00:00:00 Sendbhavana Bolaños Beka 350.1.13.10 ity of Hospital 4.2.7.2.686 Baljinder as [phone] [place] [address] Branch 2019-01-25 2019-01-25 Telephone Traci Kimble 1.2.545.201 [id number] Univers 00:00:00 00:00:00 Sendbhavana Bolaños Beka 350.1.13.10 ity of Hospital 4.2.7.2.686 Baljinder as [phone] [place] [address] Branch 2019-01-20 2019-01-[address] [facility] 1.2.840.114 [id number] Univers 08:55:54 09:56:43 Visit Oz Lehman 350.1.13.10 [place] [phone] Dc dical nal 059 [facility] 2019-01-14 2019-01-15 Emergency [place], TRAUMA 1.2.840.114 [id number] Univers 18:20:35 00:24:00 [facility] 350.1.13.10 [place] [phone] [address] 2019-01-13 2019-01-13 Office [facility] 1.2.840.114 [id number] Univers 08:10:44 09:19:41 Visit Lima Levi 350.1.13.10 [place] [phone] Dc dical nal 205 [facility] 2018-05-24 2018-05-24 Outpatient SARAHY DORADO, SLEH SLEH [id number] SLEH 00:00:00 00:00:00 BHAMIDIPASUSAN 2016-07-24 2016-07-30 Inpatient nullFlavo [facility] [id number] Memoria 02:04:00 16:20:[address] 2016-07-24 2016-07-30 Inpatient nullFlavo [facility] [id number] Memoria 02:04:00 16:20:00 r Vin [address] [place] [address] 2016-07-23 2016-07-30 Outpatient Yaquelin [facility] [id number] 20:04:00 10:20:00 Luna 10 2016-06-10 2016-06-15 Inpatient nullFlavo [facility] [id number] Memoria 16:02:00 18:23:[address] 2016-06-10 2016-06-15 Inpatient nullFlavo [facility] [id number] Memoria 16:02:00 18:23:[address] 2016-06-10 2016-06-15 Outpatient Franck [facility] [id number] 10:02:00 12:23:00 Joe W 09 2014-06-26 2014-06-26 [facility] [id number] Memoria 05:25:00 15:14:00 Emergency r [address] 2014-06-26 2014-06-26 [facility] [id number] Memoria 05:25:00 15:14:00 Emergency r [address] 2014-06-25 2014-06-26 Outpatient Ostermayer, 2.16.840. 2.16.840. 1. [id number] 23:25:00 09:14:00 Atul [id number]. [id number] Cem 3.615.0.1 5.0.944 30 9348-10-25 2013-04-15 Emergency [facility] [id number] Memoria 21:04:00 01:45:[address] 2013-04-14 2013-04-15 Outpatient 2.16.840. 2.16.840.1. 4 [id number] Memoria 21:04:00 01:45:00 [id number]. [id number] 07 l 3.615.0.1 5.0.101 Jake n 01 [facility] 2013-04-14 2013-04-15 Outpatient 2.16.840. 2.16.840.1. 4 [id number] Memoria 21:04:00 01:45:00 [id number]. [id number] 07 l 3.615.0.1 5.0.101 Jake n [facility] 2013-04-14 2013-04-15 Outpatient 2.16.840. 2.16.840.1. 4 [id number] Memoria 21:04:00 01:45:00 [id number]. [id number] 07 l 3.615.0.1 5.0.101 Jake n [facility] 2013-04-14 2013-04-15 Outpatient 2.16.840. 2.16.840.1. 4 [id number] Memoria 21:04:00 01:45:00 [id number]. [id number] 07 l 3.615.0.1 5.0.101 Jake n [facility] 2013-04-14 2013-04-15 Outpatient 2.16.840. 2.16.840.1. 4 [id number] Memoria 21:04:00 01:45:00 [id number]. [id number] 07 l 3.615.0.1 5.0.101 Jake n [facility] 2013-04-14 2013-04-15 Emergency nullFlavo [id number] Memoria 21:04:00 01:45:00 r [facility] 07 [facility] 2012-03-14 2012-03-14 Emergency nullFlavo [id number] Memoria 16:32:00 22:39:00 r [facility] Carmine [facility] 2012-03-14 2012-03-14 Emergency nullFlavo [id number] Memoria 16:32:00 22:39:00 r [facility] 04 [facility] 2011-11-28 2011-11-30 [address]Fl[address] [facility] [id number] Memoria 12:16:00 20:40:00 r [facility] 03 [facility] 2011-11-28 2011-11-[address] [facility] [id number] Memoria 12:16:00 20:40:00 r Medical 03 [facility] 2011-09-18 2011-09-18 Emergency nullFlavo [facility] [id number] Memoria 08:23:00 13:34:00 r Medical 02 [facility] 2011-09-18 2011-09-18 Emergency nullFlavo [facility] [id number] Memoria 08:23:00 13:34:00 r Medical 02 [facility] 2011-09-01 2011-09-09 Inpatient nullFlavo [facility] [id number] Memoria 01:40:00 15:00:00 r Medical 01 [facility] 2011-09-01 2011-09-09 Inpatient nullFlavo [facility] [id number] Memoria 01:40:00 15:00:00 r [facility] 01 [facility] 2011-08-19 2011-08-23 Inpatient nullFlavo [facility] [id number] Memoria 14:25:00 15:28:00 r Medical 00 l [facility] 2011-08-19 2011-08-[address] [facility] [id number] Memoria 14:25:00 15:28:00 r Medical 00 l [facility] Results Test Description Test Time Test Comments Results Result Comments Source AFB culture 2021-07-22 18:13:19 Test Item Value Reference Range Interpretation Comme nts AFB culture isolate No growth after 6 weeks of Specimen InformationSpecimen (test code = 543-9) incubation. Source: DrainageSpecimen Site: Thigh: infected wound right thigh [facility] [id number] 18:13:19 Test Item Value Reference Range Interpretation Comments AFB culture No growth Specimen isolate (test after 6 weeks InformationSp ecimen code = 543-9) of Source: [place] geSpecimen incubation. Site: Thigh: in fected wound right [facility] [id number] 18:13:19 Test Item Value Reference Range Interpretation Comments AFB culture No growth Specimen isolate (test after 6 weeks InformationSp ecimen code = 543-9) of Source: [place] geSpecimen incubation. Site: Thigh: in fected wound right [facility] [id number] 18:13:19 Test Item Value Reference Range Interpretation Comments AFB culture No growth Specimen isolate (test after 6 weeks InformationSp ecimen code = 543-9) of Source: [place] geSpecimen incubation. Site: Thigh: in fected wound right [facility] [id number] 18:13:19 Test Item Value Reference Range Interpretation Comments AFB culture No growth Specimen isolate (test after 6 weeks InformationSp ecimen code = 543-9) of Source: [place] geSpecimen incubation. Site: Thigh: in fected wound right [facility] [id number] 18:13:19 Test Item Value Reference Range Interpretation Comments AFB culture No growth Specimen isolate (test after 6 weeks InformationSp ecimen code = 543-9) of Source: [place] geSpecimen incubation. Site: Thigh: in fected wound right [facility] [id number] 18:13:19 Test Item Value Reference Range Interpretation Comments AFB culture No growth Specimen isolate (test after 6 weeks InformationSp ecimen code = 543-9) of Source: [place] geSpecimen incubation. Site: Thigh: in fected wound right [facility] [id number] 18:13:19 Test Item Value Reference Range Interpretation Comments AFB culture No growth Specimen isolate (test after 6 weeks InformationSp ecimen code = 543-9) of Source: [place] geSpecimen incubation. Site: Thigh: in fected wound right [facility] [id number] 18:13:19 Test Item Value Reference Range Interpretation Comments AFB culture No growth Specimen isolate (test after 6 weeks InformationSp ecimen code = 543-9) of Source: [place] geSpecimen incubation. Site: Thigh: in fected wound right [facility]2022-02-01 18:13:19 Test Item Value Reference Range Interpretation Comments AFB culture No growth Specimen isolate (test after 6 weeks InformationSp ecimen code = 543-9) of Source: [place] geSpecimen incubation. Site: Thigh: in fected wound right [facility] [id number] 18:13:19 Test Item Value Reference Range Interpretation Comments AFB culture No growth Specimen isolate (test after 6 weeks InformationSp ecimen code = 543-9) of Source: [place] geSpecimen incubation. Site: Thigh: in fected wound right [facility]2022-01-25 18:15:13 Test Item Value Reference Range Interpretation Comments Fungus culture No growth Specimen isolate (test after 4 weeks InformationSp ecimen code = 1441) of Source: TissueS pecimen incubation. Site: [facility]2022-01-25 18:15:13 Test Item Value Reference Range Interpretation Comments Fungus culture No growth Specimen isolate (test after 4 weeks InformationSp ecimen code = 1441) of Source: TissueS pecimen incubation. Site: [facility]2022-01-25 18:15:13 Test Item Value Reference Range Interpretation Comments Fungus culture No growth Specimen isolate (test after 4 weeks InformationSp ecimen code = 1441) of Source: TissueS pecimen incubation. Site: [facility]2022-01-25 18:15:13 Test Item Value Reference Range Interpretation Comments Fungus culture No growth Specimen isolate (test after 4 weeks InformationSp ecimen code = 1441) of Source: TissueS pecimen incubation. Site: [facility]2022-01-25 18:15:13 Test Item Value Reference Range Interpretation Comments Fungus culture No growth Specimen isolate (test after 4 weeks InformationSp ecimen code = 1441) of Source: TissueS pecimen incubation. Site: [facility]2022-01-25 18:15:13 Test Item Value Reference Range Interpretation Comments Fungus culture No growth Specimen isolate (test after 4 weeks InformationSp ecimen code = 1441) of Source: TissueS pecimen incubation. Site: [facility]2022-01-25 18:15:13 Test Item Value Reference Range Interpretation Comments Fungus culture No growth Specimen isolate (test after 4 weeks InformationSp ecimen code = 1441) of Source: TissueS pecimen incubation. Site: [facility]2022-01-25 18:15:13 Test Item Value Reference Range Interpretation Comments Fungus culture No growth Specimen isolate (test after 4 weeks InformationSp ecimen code = 1441) of Source: TissueS pecimen incubation. Site: [facility]2022-01-25 18:15:13 Test Item Value Reference Range Interpretation Comments Fungus culture No growth Specimen isolate (test after 4 weeks InformationSp ecimen code = 1441) of Source: TissueS pecimen incubation. Site: [facility]2022-01-25 18:15:13 Test Item Value Reference Range Interpretation Comments Fungus culture No growth Specimen isolate (test after 4 weeks InformationSp ecimen code = 1441) of Source: TissueS pecimen incubation. Site: [facility]2022-01-25 18:15:13 Test Item Value Reference Range Interpretation Comments Fungus culture No growth Specimen isolate (test after 4 weeks InformationSp ecimen code = 1441) of Source: TissueS pecimen incubation. Site: [facility]2022-01-25 18:15:13 Test Item Value Reference Range Interpretation Comments Fungus culture No growth Specimen isolate (test after 4 weeks InformationSp ecimen code = 1441) of Source: TissueS pecimen incubation. Site: [place] [id number] 18:15:13 Test Item Value Reference Range Interpretation Comments Fungus culture No growth Specimen isolate (test after 4 weeks InformationSp ecimen code = 1441) of Source: TissueS pecimen incubation. Site: [place] [address]-01-01 14:31:13 Test Item Value Reference Range Interpretation Comments Anaerobic No anaerobic Specimen culture isolate organisms InformationS pecimen (test code = isolated. Source: TissueS pecimen 552) Site: [place] [address]-01-01 14:31:13 Test Item Value Reference Range Interpretation Comments Anaerobic No anaerobic Specimen culture isolate organisms InformationS pecimen (test code = isolated. Source: TissueS pecimen 552) Site: [place] 128742-01-01 14:31:13 Test Item Value Reference Range Interpretation Comments Anaerobic No anaerobic Specimen culture isolate organisms InformationS pecimen (test code = isolated. Source: TissueS pecimen 552) Site: [place] 128742-01-01 14:31:13 Test Item Value Reference Range Interpretation Comments Anaerobic No anaerobic Specimen culture isolate organisms InformationS pecimen (test code = isolated. Source: TissueS pecimen 552) Site: [place] 128742-01-01 14:31:13 Test Item Value Reference Range Interpretation Comments Anaerobic No anaerobic Specimen culture isolate organisms InformationS pecimen (test code = isolated. Source: TissueS pecimen 552) Site: [place] 128742-01-01 14:31:13 Test Item Value Reference Range Interpretation Comments Anaerobic No anaerobic Specimen culture isolate organisms InformationS pecimen (test code = isolated. Source: TissueS pecimen 552) Site: [place] [address]-01-01 14:31:13 Test Item Value Reference Range Interpretation Comments Anaerobic No anaerobic Specimen culture isolate organisms InformationS pecimen (test code = isolated. Source: TissueS pecimen 552) Site: [place] [address]-01-01 14:31:13 Test Item Value Reference Range Interpretation Comments Anaerobic No anaerobic Specimen culture isolate organisms InformationS pecimen (test code = isolated. Source: TissueS pecimen 552) Site: [facility] [id number] 14:31:13 Test Item Value Reference Range Interpretation Comments Anaerobic No anaerobic Specimen culture isolate organisms InformationS pecimen (test code = isolated. Source: TissueS pecimen 552) Site: [facility] [id number] 14:31:13 Test Item Value Reference Range Interpretation Comments Anaerobic No anaerobic Specimen culture isolate organisms InformationS pecimen (test code = isolated. Source: TissueS pecimen 552) Site: [facility] [id number] 14:31:13 Test Item Value Reference Range Interpretation Comments Anaerobic No anaerobic Specimen culture isolate organisms InformationS pecimen (test code = isolated. Source: TissueS pecimen 552) Site: [facility]2022-01-01 14:31:13 Test Item Value Reference Range Interpretation Comments Anaerobic No anaerobic Specimen culture isolate organisms InformationS pecimen (test code = isolated. Source: TissueS pecimen 552) Site: [facility] [id number] 14:31:13 Test Item Value Reference Range Interpretation Comments Anaerobic No anaerobic Specimen culture isolate organisms InformationS pecimen (test code = isolated. Source: TissueS pecimen 552) Site: [facility] [id number] 16:51:58 Test Item Value Reference Range Interpretation Comments Gram stain No WBC's or Specimen isolate (test organisms seen. Information Specimen code = 1469) Source: TissueS pecimen [facility] [id number] 16:51:58 Test Item Value Reference Range Interpretation Comments Aerobic culture No growth Specimen isolate (test after 3 days. InformationSp ecimen code = 498) Source: TissueS pecimen [facility]: [facility] [id number] 16:51:58 Test Item Value Reference Range Interpretation Comments Fungus smear No fungi Specimen (test code = observed. InformationSpec imen Source: 1443) TissueSpecimen Site: [facility] [id number] 16:51:58 Test Item Value Reference Range Interpretation Comments Gram stain No WBC's or Specimen isolate (test organisms seen. Information Specimen code = 1469) Source: TissueS pecimen [facility] [id number] 16:51:58 Test Item Value Reference Range Interpretation Comments Aerobic culture No growth Specimen isolate (test after 3 days. InformationSp ecimen code = 498) Source: [facility] Site: [facility] [id number] 16:51:58 Test Item Value Reference Range Interpretation Comments Fungus smear No fungi Specimen (test code = observed. InformationSpec imen Source: 1443) TissueSpecime Site: [facility]2021-12-31 16:51:58 Test Item Value Reference Range Interpretation Comments Gram stain No WBC's or Specimen isolate (test organisms seen. Information Specimen code = 1469) Source: [facility] Site: [facility]2021-12-31 16:51:58 Test Item Value Reference Range Interpretation Comments Aerobic culture No growth Specimen isolate (test after 3 days. InformationSp ecimen code = 498) Source: [facility] Site: [facility] [id number] 16:51:58 Test Item Value Reference Range Interpretation Comments Fungus smear No fungi Specimen (test code = observed. InformationSpec imen Source: 1443) [facility]2021-12-31 16:51:58 Test Item Value Reference Range Interpretation Comments Gram stain No WBC's or Specimen isolate (test organisms seen. Information Specimen code = 1469) Source: [facility] Site: [facility]2021-12-31 16:51:58 Test Item Value Reference Range Interpretation Comments Aerobic culture No growth Specimen isolate (test after 3 days. InformationSp ecimen code = 498) Source: [facility] Site: [facility] [id number] 16:51:58 Test Item Value Reference Range Interpretation Comments Fungus smear No fungi Specimen (test code = observed. InformationSpec imen Source: 1443) [facility]: [facility]2021-12-31 16:51:58 Test Item Value Reference Range Interpretation Comments Gram stain No WBC's or Specimen isolate (test organisms seen. Information Specimen code = 1469) Source: [facility] Site: [facility] [id number] 16:51:58 Test Item Value Reference Range Interpretation Comments Aerobic culture No growth Specimen isolate (test after 3 days. InformationSp ecimen code = 498) Source: [facility] [id number] 16:51:58 Test Item Value Reference Range Interpretation Comments Fungus smear No fungi Specimen (test code = observed. InformationSpec imen Source: 1443) TissueSpecime Site: [facility] [id number] 16:51:58 Test Item Value Reference Range Interpretation Comments Gram stain No WBC's or Specimen isolate (test organisms seen. Information Specimen code = 1469) Source: [facility] [id number] 16:51:58 Test Item Value Reference Range Interpretation Comments Aerobic culture No growth Specimen isolate (test after 3 days. InformationSp ecimen code = 498) Source: [facility] Site: [facility] [id number] 16:51:58 Test Item Value Reference Range Interpretation Comments Fungus smear No fungi Specimen (test code = observed. InformationSpec imen Source: 1443) [facility] [id number] 16:51:58 Test Item Value Reference Range Interpretation Comments Gram stain No WBC's or Specimen isolate (test organisms seen. Information Specimen code = 1469) Source: [facility] Site: [facility] [id number] 16:51:58 Test Item Value Reference Range Interpretation Comments Aerobic culture No growth Specimen isolate (test after 3 days. InformationSp ecimen code = 498) Source: [facility] [id number] 16:51:58 Test Item Value Reference Range Interpretation Comments Fungus smear No fungi Specimen (test code = observed. InformationSpec imen Source: 1443) [facility] [id number] 16:51:58 Test Item Value Reference Range Interpretation Comments Gram stain No WBC's or Specimen isolate (test organisms seen. Information Specimen code = 1469) Source: [facility] Site: [facility] [id number] 16:51:58 Test Item Value Reference Range Interpretation Comments Aerobic culture No growth Specimen isolate (test after 3 days. InformationSp ecimen code = 498) Source: [facility] Site: [facility] [id number] 16:51:58 Test Item Value Reference Range Interpretation Comments Fungus smear No fungi Specimen (test code = observed. InformationSpec imen Source: 1443) TissueSpecimen Site: [facility] [id number] 16:51:58 Test Item Value Reference Range Interpretation Comments Gram stain No WBC's or Specimen isolate (test organisms seen. Information Specimen code = 1469) Source: [facility] [id number] 16:51:58 Test Item Value Reference Range Interpretation Comments Aerobic culture No growth Specimen isolate (test after 3 days. InformationSp ecimen code = 498) Source: [facility] Site: [facility]2021-12-31 16:51:58 Test Item Value Reference Range Interpretation Comments Fungus smear No fungi Specimen (test code = observed. InformationSpec imen Source: 1443) [facility]: [facility]2021-12-31 16:51:58 Test Item Value Reference Range Interpretation Comments Gram stain No WBC's or Specimen isolate (test organisms seen. Information Specimen code = 1469) Source: [facility] [id number] 16:51:58 Test Item Value Reference Range Interpretation Comments Aerobic culture No growth Specimen isolate (test after 3 days. InformationSp ecimen code = 498) Source: [facility] Site: [facility] [id number] 16:51:58 Test Item Value Reference Range Interpretation Comments Fungus smear No fungi Specimen (test code = observed. InformationSpec imen Source: 1443) TissueSpecime Site: [facility] [id number] 16:51:58 Test Item Value Reference Range Interpretation Comments Gram stain No WBC's or Specimen isolate (test organisms seen. Information Specimen code = 1469) Source: [facility] [id number] 16:51:58 Test Item Value Reference Range Interpretation Comments Aerobic culture No growth Specimen isolate (test after 3 days. InformationSp ecimen code = 498) Source: TissueS pecimen [facility] [id number] 16:51:58 Test Item Value Reference Range Interpretation Comments Fungus smear No fungi Specimen (test code = observed. InformationSpec imen Source: 1443) TissueSpecimen Site: [facility] [id number] 16:51:58 Test Item Value Reference Range Interpretation Comments Gram stain No WBC's or Specimen isolate (test organisms seen. Information Specimen code = 1469) Source: [facility] [id number] 16:51:58 Test Item Value Reference Range Interpretation Comments Aerobic culture No growth Specimen isolate (test after 3 days. InformationSp ecimen code = 498) Source: [facility] Site: [facility] twpog1716-60-77 16:51:58 Test Item Value Reference Range Interpretation Comments Fungus smear No fungi Specimen (test code = observed. InformationSpec [employer] Source: 1443) TissueSpecime Site: [facility] seddz3475-72-51 16:51:58 Test Item Value Reference Range Interpretation Comments Gram stain No WBC's or Specimen isolate (test organisms seen. Information Specimen code = 1469) Source: [facility] simaodq5365-75-28 16:51:58 Test Item Value Reference Range Interpretation Comments Aerobic culture No growth Specimen isolate (test after 3 days. InformationSp ecimen code = 498) [facility] gmvoj1181-68-99 16:51:58 Test Item Value Reference Range Interpretation Comments Fungus smear No fungi Specimen (test code = observed. InformationSpec imen Source: 1445) TissueSpecime Site: [facility] cxnwjjr6833-13-52 17:00:57 Test Item Value Reference Range Interpretation Comments POC glucose (test code 79 mg/dL 65-99 Opera tor Name: Eboni = 93932-9) AmiDevice ID: [id number] [facility] [id number] 17:00:57 Test Item Value Reference Range Interpretation Comments POC glucose (test code 79 mg/dL 65-99 Opera tor Name: Eboni = 37174-1) [employer] ID: [id number] [facility]2021-12-29 17:00:57 Test Item Value Reference Range Interpretation Comments POC glucose (test code 79 mg/dL 65-99 Opera tor Name: Eboni = 90265-8) AmiDevice ID: [id number] [facility]2021-12-29 17:00:57 Test Item Value Reference Range Interpretation Comments POC glucose (test code 79 mg/dL 65-99 Opera tor Name: Eboni = 87232-8) [employer]iDevice ID: [id number] [facility]2021-12-29 17:00:57 Test Item Value Reference Range Interpretation Comments POC glucose (test code 79 mg/dL 65-99 Opera tor Name: Eboni = 57110-0) [employer] ID: [id number] [facility]2021-12-29 17:00:57 Test Item Value Reference Range Interpretation Comments POC glucose (test code 79 mg/dL 65-99 Opera tor Name: Eboni = 19067-0) [employer] ID: [id number] [facility]2021-12-29 17:00:57 Test Item Value Reference Range Interpretation Comments POC glucose (test code 79 mg/dL 65-99 Opera tor Name: Eboni = 83658-7) [employer] ID: [id number] [facility]2021-12-29 17:00:57 Test Item Value Reference Range Interpretation Comments POC glucose (test code 79 mg/dL 65-99 Opera tor Name: Eboni = 60080-0) [employer]iDevice ID: [id number] [facility]2021-12-29 17:00:57 Test Item Value Reference Range Interpretation Comments POC glucose (test code 79 mg/dL 65-99 Opera tor Name: Eboni = 69119-7) [employer] ID: [id number] [facility]2021-12-29 17:00:57 Test Item Value Reference Range Interpretation Comments POC glucose (test code 79 mg/dL 65-99 Opera tor Name: Eboni = 25138-3) AmiDevice ID: [id number] [facility]2021-12-29 17:00:57 Test Item Value Reference Range Interpretation Comments POC glucose (test code 79 mg/dL 65-99 Opera tor Name: Eboni = 23926-5) [employer]iDevice ID: [id number] [facility] [id number] 17:00:57 Test Item Value Reference Range Interpretation Comments POC glucose (test code 79 mg/dL 65-99 Opera tor Name: Eboni = 24092-7) AmiDevice ID: [id number] [facility] [id number] 17:00:57 Test Item Value Reference Range Interpretation Comments POC glucose (test code 79 mg/dL 65-99 Opera tor Name: Eboni = 07922-7) AmiDevice ID: [id number] [facility] , [id number] 20:46:00 Test Item Value Reference Range Interpretation Comments test urine, POC (test Negative code = 8508758) Internal QC (test code = 257) QC acceptable [facility] , [id number] 20:46:00 Test Item Value Reference Range Interpretation Comments test urine, POC (test Negative code = 0025941) Internal QC (test code = 257) QC acceptable [facility] , [id number] 20:46:00 Test Item Value Reference Range Interpretation Comments test urine, POC (test Negative code = 8869591) Internal QC (test code = 257) QC acceptable [facility] , [id number] 20:46:00 Test Item Value Reference Range Interpretation Comments test urine, POC (test Negative code = 3760967) Internal QC (test code = 257) QC acceptable [facility] , [id number] 20:46:00 Test Item Value Reference Range Interpretation Comments test urine, POC (test Negative code = 8303711) Internal QC (test code = 257) QC acceptable [facility] , [id number] 20:46:00 Test Item Value Reference Range Interpretation Comments test urine, POC (test Negative code = 1387379) Internal QC (test code = 257) QC acceptable [facility] , [id number] 20:46:00 Test Item Value Reference Range Interpretation Comments test urine, POC (test Negative code = 4051399) Internal QC (test code = 257) QC acceptable [facility] , wsese5825-02-03 20:46:00 Test Item Value Reference Range Interpretation Comments test urine, POC (test Negative code = 6317156) Internal QC (test code = 257) QC acceptable [facility] , [id number] 20:46:00 Test Item Value Reference Range Interpretation Comments test urine, POC (test Negative code = 5864763) Internal QC (test code = 257) QC acceptable [facility] , [id number] 20:46:00 Test Item Value Reference Range Interpretation Comments test urine, POC (test Negative code = 2850844) Internal QC (test code = 257) QC acceptable [facility] , [id number] 20:46:00 Test Item Value Reference Range Interpretation Comments test urine, POC (test Negative code = 7183870) Internal QC (test code = 257) QC acceptable [facility] , [id number] 20:46:00 Test Item Value Reference Range Interpretation Comments test urine, POC (test Negative code = 6209967) Internal QC (test code = 257) QC acceptable [facility] , [id number] 20:46:00 Test Item Value Reference Range Interpretation Comments test urine, POC (test Negative code = 5898875) Internal QC (test code = 257) QC acceptable [address]2021-12-27 17:27:33 Test Item Value Reference Range Interpretation Comments Ventricular rate (test code = 253) Atrial rate (test code = 255) MI interval (test code = 266) QRSD interval [...] of 04-JUN-2021 18:19,-No significant change was found- [address]2021-12-27 17:27:33 Test Item Value Reference Range Interpretation Comments Ventricular rate (test code = 253) Atrial rate (test code = 255) MI interval (test code = 266) QRSD interval [...] of 04-JUN-2021 18:19,-No significant change was found- [address]2021-12-27 17:27:33 Test Item Value Reference Range Interpretation Comments Ventricular rate (test code = 253) Atrial rate (test code = 255) MI interval (test code = 266) QRSD interval [...] of 04-JUN-2021 18:19,-No significant change was found- [address]2021-12-27 17:27:33 Test Item Value Reference Range Interpretation Comments Ventricular rate (test code = 253) Atrial rate (test code = 255) MI interval (test code = 266) QRSD interval [...] of 04-JUN-2021 18:19,-No significant change was found- [address]2021-12-27 17:27:33 Test Item Value Reference Range Interpretation Comments Ventricular rate (test code = 253) Atrial rate (test code = 255) MI interval (test code = 266) QRSD interval [...] of 04-JUN-2021 18:19,-No significant change was found- [address]2021-12-27 17:27:33 Test Item Value Reference Range Interpretation Comments Ventricular rate (test code = 253) Atrial rate (test code = 255) MI interval (test code = 266) QRSD interval [...] of 04-JUN-2021 18:19,-No significant change was found- [address]2021-12-27 17:27:33 Test Item Value Reference Range Interpretation Comments Ventricular rate (test code = 253) Atrial rate (test code = 255) MI interval (test code = 266) QRSD interval [...] of 04-JUN-2021 18:19,-No significant change was found- [address]2021-12-27 17:27:33 Test Item Value Reference Range Interpretation Comments Ventricular rate (test code = 253) Atrial rate (test code = 255) MI interval (test code = 266) QRSD interval [...] of 04-JUN-2021 18:19,-No significant change was found- [address]2021-12-27 17:27:33 Test Item Value Reference Range Interpretation Comments Ventricular rate (test code = 253) Atrial rate (test code = 255) MI interval (test code = 266) QRSD interval [...] of 04-JUN-2021 18:19,-No significant change was found- [address]2021-12-27 17:27:33 Test Item Value Reference Range Interpretation Comments Ventricular rate (test code = 253) Atrial rate (test code = 255) MI interval (test code = 266) QRSD interval [...] of 04-JUN-2021 18:19,-No significant change was found- [address]2021-12-27 17:27:33 Test Item Value Reference Range Interpretation Comments Ventricular rate (test code = 253) Atrial rate (test code = 255) MI interval (test code = 266) QRSD interval [...] of 04-JUN-2021 18:19,-No significant change was found- [address]2021-12-27 17:27:33 Test Item Value Reference Range Interpretation Comments Ventricular rate (test code = 253) Atrial rate (test code = 255) MI interval (test code = 266) QRSD interval [...] of 04-JUN-2021 18:19,-No significant change was found- [address]2021-12-27 17:27:33 Test Item Value Reference Range Interpretation Comments Ventricular rate (test code = 253) Atrial rate (test code = 255) MI interval (test code = 266) QRSD interval [...] of 04-JUN-2021 18:19,-No significant change was found- [facility] and fzlysl3599-79-10 11:06:00 Test Item Value Reference Range Interpretation Comments ABO grouping (test code = 883-9) B Rh type (test code = 16403-6) POS Antibody screen (gel) (test code = NEG 890-4) [facility] and jvrzdz3184-19-04 11:06:00 Test Item Value Reference Range Interpretation Comments ABO grouping (test code = 883-9) B Rh type (test code = 79973-7) POS Antibody screen (gel) (test code = NEG 890-4) [facility] and dnngym9415-42-18 11:06:00 Test Item Value Reference Range Interpretation Comments ABO grouping (test code = 883-9) B Rh type (test code = 77319-0) POS Antibody screen (gel) (test code = NEG 890-4) [facility] and ydthsr6696-02-56 11:06:00 Test Item Value Reference Range Interpretation Comments ABO grouping (test code = 883-9) B Rh type (test code = 63070-0) POS Antibody screen (gel) (test code = NEG 890-4) [facility] and immpsw0827-30-82 11:06:00 Test Item Value Reference Range Interpretation Comments ABO grouping (test code = 883-9) B Rh type (test code = 83247-7) POS Antibody screen (gel) (test code = NEG 890-4) [facility] and bldyrw6199-81-73 11:06:00 Test Item Value Reference Range Interpretation Comments ABO grouping (test code = 883-9) B Rh type (test code = 32359-8) POS Antibody screen (gel) (test code = NEG 890-4) [facility] and mrnjcv9690-73-49 11:06:00 Test Item Value Reference Range Interpretation Comments ABO grouping (test code = 883-9) B Rh type (test code = 83755-5) POS Antibody screen (gel) (test code = NEG 890-4) [facility] and ukitjk1279-48-97 11:06:00 Test Item Value Reference Range Interpretation Comments ABO grouping (test code = 883-9) B Rh type (test code = 00280-6) POS Antibody screen (gel) (test code = NEG 890-4) [facility] and kqxolf6564-31-65 11:06:00 Test Item Value Reference Range Interpretation Comments ABO grouping (test code = 883-9) B Rh type (test code = 80472-3) POS Antibody screen (gel) (test code = NEG 890-4[facility] dax[facility]fo5276-51-93 11:06:00 Test Item Value Reference Range Interpretation Comments ABO grouping (test code = 883-9) B Rh type (test code = 38737-3) POS Antibody screen (gel) (test code = NEG 890-4) [facility] ocamdw4056-04-07 11:06:00 Test Item Value Reference Range Interpretation Comments ABO grouping (test code = 883-9) B Rh type (test code = 61739-0) POS Antibody screen (gel) (test code = NEG 890-4) [facility] and cngawp9512-30-97 11:06:00 Test Item Value Reference Range Interpretation Comments ABO grouping (test code = 883-9) B Rh type (test code = 20122-1) POS Antibody screen (gel) (test code = NEG 890-4) [facility] and pkhhbf8191-39-49 11:06:00 Test Item Value Reference Range Interpretation Comments ABO grouping (test code = 883-9) B Rh type (test code = 87304-4) POS Antibody screen (gel) (test code = NEG 890-4) [facility] [Presence] in Respiratory specimen by EMANUEL with probe mujywuyfd7196-01-90 19:37:44 Test Item Value Reference Range Interpretation Comments SARS-CoV-2 (COVID-19) RNA Not detected Not-Detected [Presence] in Respiratory specimen by EMANUEL with probe detection (test code = 14838-0) 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 InformationSp ecimen code = 21970-2) Source: [facility] Reyes Site: Thigh: in fected right thigh wou [facility] ihtvvli2535-94-02 20:18:46 Test Item Value Reference Range Interpretation Comments Tissue culture No growth Specimen isolate (test after 3 days. InformationSp ecimen code = 65050-6) Source: Gino Pangimen Site: Thigh: in fected right thigh wou [facility]2021-12-24 20:18:46 Test Item Value Reference Range Interpretation Comments Tissue culture No growth Specimen isolate (test after 3 days. InformationSp ecimen code = 41148-7) Source: Gino Pangimen Site: Thigh: in fected right thigh wou [facility]2021-12-24 20:18:46 Test Item Value Reference Range Interpretation Comments Tissue culture No growth Specimen isolate (test after 3 days. InformationSp ecimen code = 92687-1) Source: [facility] Pangimen Site: Thigh: in fected right thigh wou [facility]2021-12-24 20:18:46 Test Item Value Reference Range Interpretation Comments Tissue culture No growth Specimen isolate (test after 3 days. InformationSp ecimen code = 07259-1) Source: Gino Pangimen Site: Thigh: in fected right thigh wou [facility]2021-12-24 20:18:46 Test Item Value Reference Range Interpretation Comments Tissue culture No growth Specimen isolate (test after 3 days. InformationSp ecimen code = 72524-1) Source: [facility] Pangimen Site: Thigh: in fected right thigh wou [facility] rvewaid6919-88-19 20:18:46 Test Item Value Reference Range Interpretation Comments Tissue culture No growth Specimen isolate (test after 3 days. InformationSp ecimen code = 52533-9) Source: Gino Pangimen Site: Thigh: in fected right thigh wou [facility] sntexmb9556-47-51 20:18:46 Test Item Value Reference Range Interpretation Comments Tissue culture No growth Specimen isolate (test after 3 days. InformationSp ecimen code = 05032-8) Source: Tiss ueSpecimen Site: Thigh: [facility]ect[facility] takgqou2558-16-37 20:18:46 Test Item Value Reference Range Interpretation Comments Tissue culture No growth Specimen isolate (test after 3 days. InformationSp ecimen code = 91283-8) Source: T[place] ueSpecimen Site: Thigh: in fected right thigh [facility]ou [facility] yopsyiq3710-00-01 20:18:46 Test Item Value Reference Range Interpretation Comments Tissue culture No growth Specimen isolate (test after 3 days. InformationSp ecimen code = 06675-3) Source: [place]iss ueSpecimen Site: Thigh: in fected right thigh wou [facility] vcpoptx7957-97-20 20:18:46 Test Item Value Reference Range Interpretation Comments Tissue culture No growth Specimen isolate (test after 3 days. InformationSp ecimen code = 41521-7) Source: Tiss ueSpecimen Site: Thigh: [facility]ected [facility] mhbto6927-84-63 20:24:42 Test Item Value Reference Range Interpretation Comments AFB stain No acid fast Specimen (test code = bacilli (AFB) InformationSpe cimen 676-7) seen. Source: [place] eSpecimen Site: Thigh: [facility]ect[facility] pwwro5874-78-30 20:24:42 Test Item Value Reference Range Interpretation Comments AFB stain No acid fast Specimen (test code = bacilli (AFB) InformationSpe cimen 676-7) seen. Source: [place] eSpecimen Site: Thigh: in fected wound right [facility] qhorq8703-09-32 20:24:42 Test Item Value Reference Range Interpretation Comments AFB stain No acid fast Specimen (test code = bacilli (AFB) InformationSpe cimen 676-7) seen. Source: [place] eSpecimen Site: Thigh: in fected wound right [facility] [id number] 20:24:42 Test Item Value Reference Range Interpretation Comments AFB stain No acid fast Specimen (test code = bacilli (AFB) InformationSpe cimen 676-7) seen. Source: [place] eSpecimen Site: Thigh: in fected wound right [facility] [id number] 20:24:42 Test Item Value Reference Range Interpretation Comments AFB stain No acid fast Specimen (test code = bacilli (AFB) InformationSpe cimen 676-7) seen. Source: [place] eSpecimen Site: [facility]: [facility] [id number] 20:24:42 Test Item Value Reference Range Interpretation Comments AFB stain No acid fast Specimen (test code = bacilli (AFB) InformationSpe cimen 676-7) seen. Source: [place] eSpecimen Site: Thigh: [facility] [id number] 20:24:42 Test Item Value Reference Range Interpretation Comments AFB stain No acid fast Specimen (test code = bacilli (AFB) InformationSpe cimen 676-7) seen. Source: [place] eSpecimen Site: Thigh: [facility]ect[facility] [id number] 20:24:42 Test Item Value Reference Range Interpretation Comments AFB stain No acid fast Specimen (test code = bacilli (AFB) InformationSpe cimen 676-7) seen. Source: [place] eSpecimen Site: Thigh: [facility]ect[facility] [id number] 20:24:42 Test Item Value Reference Range Interpretation Comments AFB stain No acid fast Specimen (test code = bacilli (AFB) InformationSpe cimen 676-7) seen. Source: [place] eSpecimen Site: Thigh: [facility]ect[facility] [id number] 20:24:42 Test Item Value Reference Range Interpretation Comments AFB stain No acid fast Specimen (test code = bacilli (AFB) InformationSpe cimen 676-7) seen. Source: [place] eSpecimen Site: Thigh: [facility] [id number] 20:24:42 Test Item Value Reference Range Interpretation Comments AFB stain No acid fast Specimen (test code = bacilli (AFB) InformationSpe cimen 676-7) seen. Source: [place] eSpecimen Site: Thigh: in fected wound right [facility]2021-12-20 09:49:57 Test Item Value Reference Range Interpretation Comments Urine culture No growth Specimen isolate (test after 24 InformationSpe cimen code = 46389-3) hours Source: Urin eSpecimen Site: [facility]2021-12-20 09:49:57 Test Item Value Reference Range Interpretation Comments Urine culture No growth Specimen isolate (test after 24 InformationSpe cimen code = 12516-1) hours Source: Urin eSpecimen Site: [facility]2021-12-20 09:49:57 Test Item Value Reference Range Interpretation Comments Urine culture No growth Specimen isolate (test after 24 InformationSpe cimen code = 82020-8) hours [facility]2021-12-20 09:49:57 Test Item Value Reference Range Interpretation Comments Urine culture No growth Specimen isolate (test after 24 InformationSpe cimen code = 65867-2) hours Source: Urin eSpecimen Site: [facility]2021-12-20 09:49:57 Test Item Value Reference Range Interpretation Comments Urine culture No growth Specimen isolate (test after 24 InformationSpe cimen code = 90504-2) hours Source: Urin eSpecimen Site: [facility]2021-12-20 09:49:57 Test Item Value Reference Range Interpretation Comments Urine culture No growth Specimen isolate (test after 24 InformationSpe cimen code = 90690-4) hours Source: Urin eSpecimen Site: [facility]2021-12-20 09:49:57 Test Item Value Reference Range Interpretation Comments Urine culture No growth Specimen isolate (test after 24 InformationSpe cimen code = 61148-5) hours Source: [facility] eSpecime Site: [facility]2021-12-20 09:49:57 Test Item Value Reference Range Interpretation Comments Urine culture No growth Specimen isolate (test after 24 InformationSpe cimen code = 52450-0) hours [facility]2021-12-20 09:49:57 Test Item Value Reference Range Interpretation Comments Urine culture No growth Specimen isolate (test after 24 InformationSpe cimen code = 99768-3) hours Source: [facility] skokiuj7563-81-05 09:49:57 Test Item Value Reference Range Interpretation Comments Urine culture No growth Specimen isolate (test after 24 InformationSpe cimen code = 41406-9) hours Source: [facility] lukbmey5599-23-87 09:49:57 Test Item Value Reference Range Interpretation Comments Urine culture No growth Specimen isolate (test after 24 InformationSpe cimen code = 65719-7) hours Source: [facility] Rh wwfiqtfywokm9644-27-88 12:52:00 Test Item Value Reference Range Interpretation Comments ABO grouping (test code = 883-9) B Rh type (test code = 41872-5) [facility] yjuxmdjjczhf9274-89-06 12:52:00 Test Item Value Reference Range Interpretation Comments ABO grouping (test code = 883-9) B Rh type (test code = 49116-3) [facility] oxetmdigdren0942-99-35 12:52:00 Test Item Value Reference Range Interpretation Comments ABO grouping (test code = 883-9) B Rh type (test code = 00673-0) [facility] wjexfyqwtqby7388-78-14 12:52:00 Test Item Value Reference Range Interpretation Comments ABO grouping (test code = 883-9) B Rh type (test code = 88074-6) [facility] mxcdgrmzyztv9483-29-97 12:52:00 Test Item Value Reference Range Interpretation Comments ABO grouping (test code = 883-9) B Rh type (test code = 42645-8) [facility] ydryylucfltc1496-79-29 12:52:00 Test Item Value Reference Range Interpretation Comments ABO grouping (test code = 883-9) B Rh type (test code = 08049-4) [facility] lipcssdxljzd2568-86-41 12:52:00 Test Item Value Reference Range Interpretation Comments ABO grouping (test code = 883-9) B Rh type (test code = 80911-0) [facility] klzjsyrgyhkc3227-93-13 12:52:00 Test Item Value Reference Range Interpretation Comments ABO grouping (test code = 883-9) B Rh type (test code = 15913-7) [facility] and Rh xgsyqwnpcjjm6435-72-07 12:52:00 Test Item Value Reference Range Interpretation Comments ABO grouping (test code = 883-9) B Rh type (test code = 72046-8) [facility] and Rh trcfsiucimet9563-07-26 12:52:00 Test Item Value Reference Range Interpretation Comments ABO grouping (test code = 883-9) B Rh type (test code = 93074-7) [facility] and Rh fkgifdtihycv7826-67-47 12:52:00 Test Item Value Reference Range Interpretation Comments ABO grouping (test code = 883-9) B Rh type (test code = 81227-1) [facility] [Presence] in Respiratory specimen by EMANUEL with probe vqayllfkz5784-05-81 03:04:32 Test Item Value Reference Range Interpretation Comments SARS-CoV-2 (COVID-19) RNA Not detected Not-Detected [Presence] in Respiratory specimen by EMANUEL with probe detection (test code = 08140-2) 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 (test code = 49037-8) Whether the patient has symptoms related to condition of interest (test code = 45396-3) Patient was hospitalized because of this condition (test code = 54106-1) Whether the patient was admitted to intensive care unit (ICU) for condition of interest (test code = 35422-4) Whether patient resides in a congregate care setting (test code = 71279-7) [facility] [id number] 22:22:00 Test Item Value Reference Range Interpretation Comments Product name (test code Red Blood Cells -1, = 25) Leukored Unit number (test code = [id number]) Product code (test code U8607D14 = 3092) Dispense status (test Transfused code = 24) Blood expiration date (test code = 302) Blood type code (test code = 308) Blood type (test code = B POSITIVE 1314) Compatibility (test code Compatible = 6400) [facility] Rnkks9334-24-88 22:22:00 Test Item Value Reference Range Interpretation Comments Product name (test code Red Blood Cells -1, = 25) Leukored Unit number (test code = [id number]) Product code (test code R1348B89 = 3092) Dispense status (test Transfused code = 24) Blood expiration date (test code = 302) Blood type code (test code = 308) Blood type (test code = B POSITIVE 1314) Compatibility (test code Compatible = 6400) [facility] [id number] 22:22:00 Test Item Value Reference Range Interpretation Comments Product name (test code Red Blood Cells -1, = 25) Leukored Unit number (test code = [id number]) Product code (test code V2766R78 = 3092) Dispense status (test Transfused code = 24) Blood expiration date (test code = 302) Blood type code (test code = 308) Blood type (test code = B POSITIVE 1314) Compatibility (test code Compatible = 6400) [facility] RBC, 1 [id number] 22:22:00 Test Item Value Reference Range Interpretation Comments Product name (test code Red Blood Cells -1, = 25) Leukored Unit number (test code = [id number] 0703908) Product code (test code H0232A25 = 3092) Dispense status (test Transfused code = 24) Blood expiration date (test code = 302) Blood type code (test code = 308) Blood type (test code = B POSITIVE 1314) Compatibility (test code Compatible = 6400) [facility] [id number] 22:22:00 Test Item Value Reference Range Interpretation Comments Product name (test code Red Blood Cells -1, = 25) Leukored Unit number (test code = [id number]) Product code (test code X0885R57 = 3092) Dispense status (test Transfused code = 24) Blood expiration date (test code = 302) Blood type code (test code = 308) Blood type (test code = B POSITIVE 1314) Compatibility (test code Compatible = 6400) [facility] RBC, 1 Pacul2516-74-51 22:22:00 Test Item Value Reference Range Interpretation Comments Product name (test code Red Blood Cells -1, = 25) Leukored Unit number (test code = [id number] 9452626) Product code (test code I3002V04 = 3092) Dispense status (test Transfused code = 24) Blood expiration date (test code = 302) Blood type code (test code = 308) Blood type (test code = B POSITIVE 1314) Compatibility (test code Compatible = 6400) [facility] [id number] 22:22:00 Test Item Value Reference Range Interpretation Comments Product name (test code Red Blood Cells -1, = 25) Leukored Unit number (test code = [id number]) Product code (test code O9361V36 = 3092) Dispense status (test Transfused code = 24) Blood expiration date (test code = 302) Blood type code (test code = 308) Blood type (test code = B POSITIVE 1314) Compatibility (test code Compatible = 6400) [facility] Jgpez9556-18-14 22:22:00 Test Item Value Reference Range Interpretation Comments Product name (test code Red Blood Cells -1, = 25) Leukored Unit number (test code = [id number] 7669022) Product code (test code O9808H34 = 3092) Dispense status (test Transfused code = 24) Blood expiration date (test code = 302) Blood type code (test code = 308) Blood type (test code = B POSITIVE 1314) Compatibility (test code Compatible = 6400) [facility] [id number] 22:22:00 Test Item Value Reference Range Interpretation Comments Product name (test code Red Blood Cells -1, = 25) Leukored Unit number (test code = [id number] 5979517) Product code (test code S0400T81 = 3092) Dispense status (test Transfused code = 24) Blood expiration date (test code = 302) Blood type code (test code = 308) Blood type (test code = B POSITIVE 1314) Compatibility (test code Compatible = 6400) [facility] [id number] 22:22:00 Test Item Value Reference Range Interpretation Comments Product name (test code Red Blood Cells -1, = 25) Leukored Unit number (test code = [id number] 5366990) Product code (test code Q1733H24 = 3092) Dispense status (test Transfused code = 24) Blood expiration date (test code = 302) Blood type code (test code = 308) Blood type (test code = B POSITIVE 1314) Compatibility (test code Compatible = 6400) [facility] pathology [id number] 20:10:46 Test Item Value Reference Range Interpretation Comments Case number (test code = [id number]) Surgical pathology See link below for report (test code = PDF Lab Report 2255) Result status (test code This is Final Report = [id number]) for [address] pathology yiqstgs4267-47-70 20:10:46 Test Item Value Reference Range Interpretation Comments Case number (test code = [id number]) Surgical pathology See link below for report (test code = PDF Lab Report 2255) Result status (test code This is Final Report = [id number]) for [address] pathology [id number] 20:10:46 Test Item Value Reference Range Interpretation Comments Case number (test code = [id number]) Surgical pathology See link below for report (test code = PDF Lab Report 2255) Result status (test code This is Final Report = [id number]) for [address] pathology yayower1306-17-57 20:10:46 Test Item Value Reference Range Interpretation Comments Case number (test code = [id number]) Surgical pathology See link below for report (test code = PDF Lab Report 2255) Result status (test code This is Final Report = [id number]) for [address] pathology kmdcjzq6378-14-76 20:10:46 Test Item Value Reference Range Interpretation Comments Case number (test code = [id number]) Surgical pathology See link below for report (test code = PDF Lab Report 2255) Result status (test code This is Final Report = [id number]) for [address] pathology cunbaoj6335-47-91 20:10:46 Test Item Value Reference Range Interpretation Comments Case number (test code = [id number]) Surgical pathology See link below for report (test code = PDF Lab Report 2255) Result status (test code This is Final Report = [id number]) for [address] pathology [id number] 20:10:46 Test Item Value Reference Range Interpretation Comments Case number (test code = [id number]) Surgical pathology See link below for report (test code = PDF Lab Report 2255) Result status (test code This is Final Report = [id number]) for [address] pathology shcxsws2324-88-55 20:10:46 Test Item Value Reference Range Interpretation Comments Case number (test code = [id number]) Surgical pathology See link below for report (test code = PDF Lab Report 2255) Result status (test code This is Final Report = 2567025) for [address] pathology [id number] 20:10:46 Test Item Value Reference Range Interpretation Comments Case number (test code = [id number]) Surgical pathology See link below for report (test code = PDF Lab Report 2255) Result status (test code This is Final Report = [id number]) for [address] pathology [id number] 20:10:46 Test Item Value Reference Range Interpretation Comments Case number (test code = [id number]) Surgical pathology See link below for report (test code = PDF Lab Report 2255) Result status (test code This is Final Report = [id number]) [address] [facility], 1 [id number] 15:35:00 Test Item Value Reference Range Interpretation Comments Product name (test code Johnrick Fraire LR, Path = 25) Red cont3 Unit number (test code = [id number] 3245598) Product code (test code A2866O64 = 3092) Dispense status (test Transfused code = 24) Blood expiration date (test code = 302) Blood type code (test code = 308) Blood type (test code = O POSITIVE 1314) Compatibility (test code Not required = 6400) [facility] [id number] 15:35:00 Test Item Value Reference Range Interpretation Comments Product name (test code Bogdan tApgina LR, Path = 25) Red cont3 Unit number (test code = [id number] 0788067) Product code (test code S3990B31 = 3092) Dispense status (test Transfused code = 24) Blood expiration date (test code = 302) Blood type code (test code = 308) Blood type (test code = O POSITIVE 1314) Compatibility (test code Not required = 6400) [facility] 1 [id number] 15:35:00 Test Item Value Reference Range Interpretation Comments Product name (test code Bogdan Fraire LR, Path = 25) Red cont3 Unit number (test code = [id number] 7562300) Product code (test code V8799R93 = 3092) Dispense status (test Transfused code = 24) Blood expiration date (test code = 302) Blood type code (test code = 308) Blood type (test code = O POSITIVE 1314) Compatibility (test code Not required = 6400) [facility] 1 [id number] 15:35:00 Test Item Value Reference Range Interpretation Comments Product name (test code Bogdan Fraire LR, Path = 25) Red cont3 Unit number (test code = [id number] 4646920) Product code (test code Q6774J52 = 3092) Dispense status (test Transfused code = 24) Blood expiration date (test code = 302) Blood type code (test code = 308) Blood type (test code = O POSITIVE 1314) Compatibility (test code Not required = 6400) [facility] 1 [id number] 15:35:00 Test Item Value Reference Range Interpretation Comments Product name (test code Platerick Henleyh LR, Path = 25) Red cont3 Unit number (test code = [id number] 4141644) Product code (test code H7044E37 = 3092) Dispense status (test Transfused code = 24) Blood expiration date (test code = 302) Blood type code (test code = 308) Blood type (test code = O POSITIVE 1314) Compatibility (test code Not required = 6400) [facility], 1 Pkjup5038-20-11 15:35:00 Test Item Value Reference Range Interpretation Comments Product name (test code Platerick tAp LR, Path = 25) Red cont3 Unit number (test code = [id number] 4657877) Product code (test code J3485P75 = 3092) Dispense status (test Transfused code = 24) Blood expiration date (test code = 302) Blood type code (test code = 308) Blood type (test code = O POSITIVE 1314) Compatibility (test code Not required = 6400) [facility], 1 Matph9089-79-24 15:35:00 Test Item Value Reference Range Interpretation Comments Product name (test code Platerick Henley LR, Path = 25) Red cont3 Unit number (test code = [id number] 4306854) Product code (test code E6309E04 = 3092) Dispense status (test Transfused code = 24) Blood expiration date (test code = 302) Blood type code (test code = 308) Blood type (test code = O POSITIVE 1314) Compatibility (test code Not required = 6400) [facility] 1 [id number] 15:35:00 Test Item Value Reference Range Interpretation Comments Product name (test code Platerick Henley LR, Path = 25) Red cont3 Unit number (test code = [id number] 5331174) Product code (test code C1980I88 = 3092) Dispense status (test Transfused code = 24) Blood expiration date (test code = 302) Blood type code (test code = 308) Blood type (test code = O POSITIVE 1314) Compatibility (test code Not required = 6400) [facility], 1 Fzozd2662-88-12 15:35:00 Test Item Value Reference Range Interpretation Comments Product name (test code Platerick tAp LR, Path = 25) Red cont3 Unit number (test code = [id number] 1867405) Product code (test code Y2677K47 = 3092) Dispense status (test Transfused code = 24) Blood expiration date (test code = 302) Blood type code (test code = 308) Blood type (test code = O POSITIVE 1314) Compatibility (test code Not required = 6400) [facility] Shwkw4221-23-17 15:35:00 Test Item Value Reference Range Interpretation Comments Product name (test code Bogdan GARDINER, Path = 25) Red cont3 Unit number (test code = [id number] 7179546) Product code (test code Y9103N77 = 3092) Dispense status (test Transfused code = 24) Blood expiration date (test code = 302) Blood type code (test code = 308) Blood type (test code = O POSITIVE 1314) Compatibility (test code Not required = 6400) [facility] [id number] 12:13:24 Test Item Value Reference Range Interpretation Comments Activated clotting time See_Comment H Oper ator Name: (test code = 5298) Bryn Denny eneaDevice ID: [id number] [Automated mess age] The system [employer] generated this result transmitted ref erence range: 96 - 152 sec. The reference r leo was not used to interpret this result as normal/abnor mal. Lab Interpretation (test Abnormal code = 69716-6) [facility] [id number] 12:13:24 Test Item Value Reference Range Interpretation Comments Activated clotting time See_Comment H Oper ator Name: (test code = 5298) Bryn Denny eneaDevice ID: [id number] [Automated mess age] The system [employer] generated this result transmitted ref erence range: 96 - 152 sec. The reference r leo was not used to interpret this result as normal/abnor mal. Lab Interpretation (test Abnormal code = 65205-0) [facility] kjje4026-55-80 12:13:24 Test Item Value Reference Range Interpretation Comments Activated clotting time See_Comment H Oper ator Name: (test code = 5298) Bryn Denny eneaDevice ID: [id number] [Automated mess age] The system [employer] generated this result transmitted ref erence range: 96 - 152 sec. The reference r leo was not used to interpret this result as normal/abnor mal. Lab Interpretation (test Abnormal code = 98970-7) [facility] [id number] 12:13:24 Test Item Value Reference Range Interpretation Comments Activated clotting time See_Comment H Oper ator Name: (test code = 5298) Bryn Eduin thorntoneaDevice ID: [id number] [Automated mess age] The system [employer] generated this result transmitted ref erence range: 96 - 152 sec. The reference r leo was not used to interpret this result as normal/abnor mal. Lab Interpretation (test Abnormal code = 95940-4) [facility] [id number] 12:13:24 Test Item Value Reference Range Interpretation Comments Activated clotting time See_Comment H Oper ator Name: (test code = 5298) Estelakennymeet Denny eneaDevice ID: [id number] [Automated mess age] The system [employer] generated this result transmitted ref erence range: 96 - 152 sec. The reference r leo was not used to interpret this result as normal/abnor mal. Lab Interpretation (test Abnormal code = 64037-6) [facility] cqey8599-09-86 12:13:24 Test Item Value Reference Range Interpretation Comments Activated clotting time See_Comment H Oper ator Name: (test code = 5298) Marcoelymeet Denny eneaDevice ID: [id number] [Automated mess age] The system [employer] generated this result transmitted ref erence range: 96 - 152 sec. The reference r leo was not used to interpret this result as normal/abnor mal. Lab Interpretation (test Abnormal code = 44381-0) [facility] [id number] 12:13:24 Test Item Value Reference Range Interpretation Comments Activated clotting time See_Comment H Oper ator Name: (test code = 5298) Bryn Eduin eneaDevice ID: [id number] [Automated mess age] The system [employer] generated this result transmitted ref erence range: 96 - 152 sec. The reference r leo was not used to interpret this result as normal/abnor mal. Lab Interpretation (test Abnormal code = 44928-1) [facility] cxey2543-49-25 12:13:24 Test Item Value Reference Range Interpretation Comments Activated clotting time See_Comment H Oper ator Name: (test code = 5298) Bryn Denny cocoDevice ID: [id number] [Automated mess age] The system [employer] generated this result transmitted ref erence range: 96 - 152 sec. The reference r leo was not used to interpret this result as normal/abnor mal. Lab Interpretation (test Abnormal code = 58039-7) [facility] clotting [id number] 12:13:24 Test Item Value Reference Range Interpretation Comments Activated clotting time See_Comment H Oper ator Name: (test code = 5298) Bryn Denny cocoDevice ID: [id number] [Automated mess age] The system [employer] generated this result transmitted ref erence range: 96 - 152 sec. The reference r leo was not used to interpret this result as normal/abnor mal. Lab Interpretation (test Abnormal code = 32654-4) [facility] clotting [id number] 12:13:24 Test Item Value Reference Range Interpretation Comments Activated clotting time See_Comment H Oper ator Name: (test code = 5298) Bryn Denny cocoDevice ID: [id number] [Automated mess age] The system [employer] generated this result transmitted ref erence range: 96 - 152 sec. The reference r leo was not used to interpret this result as normal/abnor mal. Lab Interpretation (test Abnormal code = 37871-4) [facility] uwltm4500-95-37 14:37:48 Test Item Value Reference Range Interpretation Comments POC sodium (test code = 138 mmol/L 347-964 4272-0) POC potassium (test 5.5 mmol/L 3.5-5 H code = 6298-4) POC glucose (test code 295 mg/dL 65-99 H = 2339-0) POC creatinine (test 5.3 mg/dl 0.5-0.9 H Operato r Name: Pugne code = 85719-4) Viridiana ID: [id number] POC hemoglobin (test 18.4 g/dL 12-16 H code = 718-7) POC hematocrit (test 54 % 37-47 H code = 4544-3) Lab Interpretation Abnormal (test code = 43366-3) [facility] kbkcg7629-49-42 14:37:48 Test Item Value Reference Range Interpretation Comments POC sodium (test code = 138 mmol/L 477-723 2581-0) POC potassium (test 5.5 mmol/L 3.5-5 H code = 6298-4) POC glucose (test code 295 mg/dL 65-99 H = 2339-0) POC creatinine (test 5.3 mg/dl 0.5-0.9 H Operato r Name: Carminagne code = 74668-1) AileenDevice ID: [id number] POC hemoglobin (test 18.4 g/dL 12-16 H code = 718-7) POC hematocrit (test 54 % 37-47 H code = 4544-3) Lab Interpretation Abnormal (test code = 57878-9) [facility]2021-11-29 14:37:48 Test Item Value Reference Range Interpretation Comments POC sodium (test code = 138 mmol/L 579-420 4423-0) POC potassium (test 5.5 mmol/L 3.5-5 H code = 6298-4) POC glucose (test code 295 mg/dL 65-99 H = 2339-0) POC creatinine (test 5.3 mg/dl 0.5-0.9 H Operato r Name: Pudanyelle code = 78383-7) AileenDevice ID: [id number] POC hemoglobin (test 18.4 g/dL 12-16 H code = 718-7) POC hematocrit (test 54 % 37-47 H code = 4544-3) Lab Interpretation Abnormal (test code = 09321-7) [facility]2021-11-29 14:37:48 Test Item Value Reference Range Interpretation Comments POC sodium (test code = 138 mmol/L 843-427 8234-0) POC potassium (test 5.5 mmol/L 3.5-5 H code = 6298-4) POC glucose (test code 295 mg/dL 65-99 H = 2339-0) POC creatinine (test 5.3 mg/dl 0.5-0.9 H Operato r Name: Pugne code = 63797-0) AileenDevice ID: [id number] POC hemoglobin (test 18.4 g/dL 12-16 H code = 718-7) POC hematocrit (test 54 % 37-47 H code = 4544-3) Lab Interpretation Abnormal (test code = 87690-2) [facility]2021-11-29 14:37:48 Test Item Value Reference Range Interpretation Comments POC sodium (test code = 138 mmol/L 507-114 7408-0) POC potassium (test 5.5 mmol/L 3.5-5 H code = 6298-4) POC glucose (test code 295 mg/dL 65-99 H = 2339-0) POC creatinine (test 5.3 mg/dl 0.5-0.9 H Operato r Name: Pugne code = 07917-3) AileenDevice ID: [id number] POC hemoglobin (test 18.4 g/dL 12-16 H code = 718-7) POC hematocrit (test 54 % 37-47 H code = 4544-3) Lab Interpretation Abnormal (test code = 03741-7) [facility]2021-11-29 14:37:48 Test Item Value Reference Range Interpretation Comments POC sodium (test code = 138 mmol/L 764-725 9280-0) POC potassium (test 5.5 mmol/L 3.5-5.0 H code = 6298-4) POC glucose (test code 295 mg/dL 65-99 H = 2339-0) POC creatinine (test 5.3 mg/dl 0.5-0.9 H Operato r Name: Pugne code = 74217-6) AileenDevice ID: [id number] POC hemoglobin (test 18.4 g/dL 12.0-16.0 H code = 718-7) POC hematocrit (test 54 % 37-47 H code = 4544-3) Lab Interpretation Abnormal (test code = 93192-2) [facility]2021-11-29 14:37:48 Test Item Value Reference Range Interpretation Comments POC sodium (test code = 138 mmol/L 991-338 8023-0) POC potassium (test 5.5 mmol/L 3.5-5.0 H code = 6298-4) POC glucose (test code 295 mg/dL 65-99 H = 2339-0) POC creatinine (test 5.3 mg/dl 0.5-0.9 H Operato r Name: Pugne code = 27119-5) AileenDevice ID: [id number] POC hemoglobin (test 18.4 g/dL 12.0-16.0 H code = 718-7) POC hematocrit (test 54 % 37-47 H code = 4544-3) Lab Interpretation Abnormal (test code = 76204-6) [facility]2021-11-29 14:37:48 Test Item Value Reference Range Interpretation Comments POC sodium (test code = 138 mmol/L 701-425 0039-0) POC potassium (test 5.5 mmol/L 3.5-5 H code = 6298-4) POC glucose (test code 295 mg/dL 65-99 H = 2339-0) POC creatinine (test 5.3 mg/dl 0.5-0.9 H Operato r Name: Carminagne code = 22986-9) AiljoshDevice ID: [id number] POC hemoglobin (test 18.4 g/dL 12-16 H code = 718-7) POC hematocrit (test 54 % 37-47 H code = 4544-3) Lab Interpretation Abnormal (test code = 56475-4) [facility]2021-11-29 14:37:48 Test Item Value Reference Range Interpretation Comments POC sodium (test code = 138 mmol/L 901-868 2729-0) POC potassium (test 5.5 mmol/L 3.5-5 H code = 6298-4) POC glucose (test code 295 mg/dL 65-99 H = 2339-0) POC creatinine (test 5.3 mg/dl 0.5-0.9 H Operato r Name: Johannae code = 39144-3) AiljoshDevice ID: [id number] POC hemoglobin (test 18.4 g/dL 12-16 H code = 718-7) POC hematocrit (test 54 % 37-47 H code = 4544-3) Lab Interpretation Abnormal (test code = 21728-4) [facility]2021-11-29 14:37:48 Test Item Value Reference Range Interpretation Comments POC sodium (test code = 138 mmol/L 868-274 7367-0) POC potassium (test 5.5 mmol/L 3.5-5 H code = 6298-4) POC glucose (test code 295 mg/dL 65-99 H = 2339-0) POC creatinine (test 5.3 mg/dl 0.5-0.9 H Operato r Name: Pat code = 22968-3) Viridiana ID: [id number] POC hemoglobin (test 18.4 g/dL 12-16 H code = 718-7) POC hematocrit (test 54 % 37-47 H code = 4544-3) Lab Interpretation Abnormal (test code = 15526-9) [facility] [Presence] in Respiratory specimen by EMANUEL with probe urdozcswm7317-49-29 07:53:49 Test Item Value Reference Range Interpretation Comments SARS-CoV-2 (COVID-19) RNA Not detected Not-Detected [Presence] in Respiratory specimen by EMANUEL with probe detection (test code = 40275-3) 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 (test code = 66395-5) Whether the patient has symptoms related to condition of interest (test code = 50822-9) Patient was hospitalized because of this condition (test code = 15638-2) Whether the patient was admitted to intensive care unit (ICU) for condition of interest (test code = 14841-0) Whether patient resides in a congregate care setting (test code = 54994-6) [id number] 08:17:00 Test Item Value Reference Range Interpretation Comments Glucose Lvl (test code = Glucose Lvl) 94 70-99 [facility]2021-08-11 08:17:00 Test Item Value Reference Range Interpretation Comments BUN (test code = BUN) 27 7-22 [facility]2021-08-11 08:17:00 Test Item Value Reference Range Interpretation Comments Creatinine Lvl (test code = Creatinine 4.95 0.50-1.40 Lvl) [facility]2021-08-11 08:17:00 Test Item Value Reference Range Interpretation Comments Sodium Lvl (test code = Sodium Lvl) 136 135-145 [facility]2021-08-11 08:17:00 Test Item Value Reference Range Interpretation Comments Potassium Lvl (test code = Potassium 3.9 3.5-5.1 Lvl) [facility]2021-08-11 08:17:00 Test Item Value Reference Range Interpretation Comments Chloride Lvl (test code = Chloride Lvl) 103 95-109 [place] 153771-08-11 08:17:00 Test Item Value Reference Range Interpretation Comments CO2 (test code = CO2) 30 24-32 [place] 153771-08-11 08:17:00 Test Item Value Reference Range Interpretation Comments AGAP (test code = AGAP) 6.9 10.0-20.0 [place] 153771-08-11 08:17:00 Test Item Value Reference Range Interpretation Comments Calcium Lvl (test code = Calcium Lvl) 8.5 8.5-10.5 [place] 153771-08-11 08:17:00 Test Item Value Reference Range Interpretation Comments eGFR (test code = eGFR) 10 [place] 153771-08-11 08:17:00 Test Item Value Reference Range Interpretation Comments Phosphorus (test code = Phosphorus) 3.0 2.5-4.5 [place] 153771-08-11 08:17:00 Test Item Value Reference Range Interpretation Comments Magnesium Lvl (test code = Magnesium 2.4 1.8-2.4 Lvl) [place] 944591-08-11 08:17:00 Test Item Value Reference Range Interpretation Comments WBC (test code = WBC) 2.3 3.7-10.4 [place] 944591-08-11 08:17:00 Test Item Value Reference Range Interpretation Comments RBC (test code = RBC) 2.65 4.20-5.40 [place] 944591-08-11 08:17:00 Test Item Value Reference Range Interpretation Comments Hgb (test code = Hgb) 7.9 12.0-16.0 [place] [address]-08-11 08:17:00 Test Item Value Reference Range Interpretation Comments Hct (test code = Hct) 24.0 36.0-48.0 [place] [address]-08-11 08:17:00 Test Item Value Reference Range Interpretation Comments MCV (test code = MCV) 90.6 80.0-98.0 [place] [address]-08-11 08:17:00 Test Item Value Reference Range Interpretation Comments MCH (test code = MCH) 29.7 pg 27.0-31.0 [place] [address]-08-11 08:17:00 Test Item Value Reference Range Interpretation Comments MCHC (test code = MCHC) 32.7 32.0-36.0 [place] 944591-08-11 08:17:00 Test Item Value Reference Range Interpretation Comments RDW (test code = RDW) 19.1 11.5-14.5 [place] 944591-08-11 08:17:00 Test Item Value Reference Range Interpretation Comments Platelet (test code = Platelet) 71 133-450 [facility]ZenljxuJVAMBIRKFX5874-90-18 08:17:00 Test Item Value Reference Range Interpretation Comments MPV (test code = MPV) 9.9 7.4-10.4 [place] 944591-08-11 08:17:00 Test Item Value Reference Range Interpretation Comments Segs (test code = Segs) 56.1 45.0-75.0 [place] 944591-08-11 08:17:00 Test Item Value Reference Range Interpretation Comments Lymphocytes (test code = Lymphocytes) 28.9 20.0-40.0 [facility] HospitalZyahmocGSBWEGHAVK6168-30-45 08:17:00 Test Item Value Reference Range Interpretation Comments Monocytes (test code = Monocytes) 8.1 2.0-12.0 [facility] HospitalBrmlmfgQSFZUMJJHL7128-48-90 08:17:00 Test Item Value Reference Range Interpretation Comments Eosinophils (test code = 5.9 See_Comment [A utomated message] The Eosinophils) system which ge nerated this result tra nsmitted reference range : <=4.0. The reference r leo was not used to int erpret this result as normal/abnormal . [facility] HospitalQutbcjzIZVNUGENOA0674-58-71 08:17:00 Test Item Value Reference Range Interpretation Comments Basophils (test code = 1.0 See_Comment [Aut omated message] The Basophils) system which ge nerated this result tra nsmitted reference range : <=1.0. The reference r leo was not used to int erpret this result as normal/abnormal . [facility] HospitalBflooleCGYCZGPGPY5530-40-09 08:17:00 Test Item Value Reference Range Interpretation Comments Neutrophils # (test code = Neutrophils 1.3 1.5-8.1 #) [place] 944591-08-11 08:17:00 Test Item Value Reference Range Interpretation Comments Lymphocytes # (test code = Lymphocytes 0.7 1.0-5.5 #) [facility] HospitalEeqqnmyCCPXFBDOZN1156-95-43 08:17:00 Test Item Value Reference Range Interpretation Comments Monocytes # (test code 0.2 See_Comment [Aut omated message] The = Monocytes #) system which generated this result tra nsmitted reference range : <=0.8. The reference r leo was not used to int erpret this result as normal/abnormal . [place] 944591-08-11 08:17:00 Test Item Value Reference Range Interpretation Comments Eosinophils # (test code 0.1 See_Comment [A utomated message] The = Eosinophils #) system whic h generated this result tra nsmitted reference range : <=0.5. The reference r leo was not used to int erpret this result as normal/abnormal . [facility]2021-08-11 08:17:00 Test Item Value Reference Range Interpretation Comments Glucose Lvl (test code = Glucose Lvl) 94 70-99 [facility] [id number] 08:17:00 Test Item Value Reference Range Interpretation Comments BUN (test code = BUN) 27 7-22 [facility] [id number] 08:17:00 Test Item Value Reference Range Interpretation Comments Creatinine Lvl (test code = Creatinine 4.95 0.50-1.40 Lvl) [place] 153771-08-11 08:17:00 Test Item Value Reference Range Interpretation Comments Sodium Lvl (test code = Sodium Lvl) 136 135-145 [place] 153771-08-11 08:17:00 Test Item Value Reference Range Interpretation Comments Potassium Lvl (test code = Potassium 3.9 3.5-5.1 Lvl) [place] 153771-08-11 08:17:00 Test Item Value Reference Range Interpretation Comments Chloride Lvl (test code = Chloride Lvl) 103 95-109 [facility] EWZJC5486-30-27 08:17:00 Test Item Value Reference Range Interpretation Comments CO2 (test code = CO2) 30 24-32 [facility] [id number] 08:17:00 Test Item Value Reference Range Interpretation Comments AGAP (test code = AGAP) 6.9 10.0-20.0 [facility] [id number] 08:17:00 Test Item Value Reference Range Interpretation Comments Calcium Lvl (test code = Calcium Lvl) 8.5 8.5-10.5 [place] 153771-08-11 08:17:00 Test Item Value Reference Range Interpretation Comments eGFR (test code = eGFR) 10 [place] 153771-08-11 08:17:00 Test Item Value Reference Range Interpretation Comments Phosphorus (test code = Phosphorus) 3.0 2.5-4.5 [place] 153771-08-11 08:17:00 Test Item Value Reference Range Interpretation Comments Magnesium Lvl (test code = Magnesium 2.4 1.8-2.4 Lvl) [place] 944591-08-11 08:17:00 Test Item Value Reference Range Interpretation Comments WBC (test code = WBC) 2.3 3.7-10.4 [place] 944591-08-11 08:17:00 Test Item Value Reference Range Interpretation Comments RBC (test code = RBC) 2.65 4.20-5.40 [place] 944591-08-11 08:17:00 Test Item Value Reference Range Interpretation Comments Hgb (test code = Hgb) 7.9 12.0-16.0 [place] 944591-08-11 08:17:00 Test Item Value Reference Range Interpretation Comments Hct (test code = Hct) 24.0 36.0-48.0 [place] 944591-08-11 08:17:00 Test Item Value Reference Range Interpretation Comments MCV (test code = MCV) 90.6 80.0-98.0 [place] 944591-08-11 08:17:00 Test Item Value Reference Range Interpretation Comments MCH (test code = MCH) 29.7 pg 27.0-31.0 [place] 944591-08-11 08:17:00 Test Item Value Reference Range Interpretation Comments MCHC (test code = MCHC) 32.7 32.0-36.0 [place] 944591-08-11 08:17:00 Test Item Value Reference Range Interpretation Comments RDW (test code = RDW) 19.1 11.5-14.5 [place] [address]-08-11 08:17:00 Test Item Value Reference Range Interpretation Comments Platelet (test code = Platelet) 71 133-450 [facility] HospitalEeklbycDLCJWVCXIJ7511-88-01 08:17:00 Test Item Value Reference Range Interpretation Comments MPV (test code = MPV) 9.9 7.4-10.4 [facility] HospitalFmvtnlrTOCAMNCZLS9164-95-96 08:17:00 Test Item Value Reference Range Interpretation Comments Segs (test code = Segs) 56.1 45.0-75.0 [facility] HospitalSjlxmljLSJWGCDOWK8384-53-38 08:17:00 Test Item Value Reference Range Interpretation Comments Lymphocytes (test code = Lymphocytes) 28.9 20.0-40.0 [facility] HospitalVfnvlwsZLIOYFONKN5657-61-90 08:17:00 Test Item Value Reference Range Interpretation Comments Monocytes (test code = Monocytes) 8.1 2.0-12.0 [facility] HospitalZyezakkFAFEVKLSMM4388-46-71 08:17:00 Test Item Value Reference Range Interpretation Comments Eosinophils (test code = 5.9 See_Comment [A utomated message] The Eosinophils) system which ge nerated this result tra nsmitted reference range : <=4.0. The reference r leo was not used to int erpret this result as normal/abnormal . [facility] HospitalLighfrzIJGIOKTIZQ6393-61-65 08:17:00 Test Item Value Reference Range Interpretation Comments Basophils (test code = 1.0 See_Comment [Aut omated message] The Basophils) system which ge nerated this result tra nsmitted reference range : <=1.0. The reference r leo was not used to int erpret this result as normal/abnormal . [facility] HospitalYmezkvdFRZNYAPEKX2585-05-55 08:17:00 Test Item Value Reference Range Interpretation Comments Neutrophils # (test code = Neutrophils 1.3 1.5-8.1 #) [facility] HospitalMpcodrtZHDJDTRMST2526-20-39 08:17:00 Test Item Value Reference Range Interpretation Comments Lymphocytes # (test code = Lymphocytes 0.7 1.0-5.5 #) [facility] HospitalOzlgdrzDULZAPWVBL9689-79-03 08:17:00 Test Item Value Reference Range Interpretation Comments Monocytes # (test code 0.2 See_Comment [Aut omated message] The = Monocytes #) system which generated this result tra nsmitted reference range : <=0.8. The reference r leo was not used to int erpret this result as normal/abnormal . [place] [address]-08-11 08:17:00 Test Item Value Reference Range Interpretation Comments Eosinophils # (test code 0.1 See_Comment [A utomated message] The = Eosinophils #) system whic h generated this result tra nsmitted reference range : <=0.5. The reference r leo was not used to int erpret this result as normal/abnormal . [place] 153771-08-11 08:17:00 Test Item Value Reference Range Interpretation Comments Glucose Lvl (test code = Glucose Lvl) 94 70-99 [place] 153771-08-11 08:17:00 Test Item Value Reference Range Interpretation Comments BUN (test code = BUN) 27 7-22 [place] 153771-08-11 08:17:00 Test Item Value Reference Range Interpretation Comments Creatinine Lvl (test code = Creatinine 4.95 0.50-1.40 Lvl) [place] 153771-08-11 08:17:00 Test Item Value Reference Range Interpretation Comments Sodium Lvl (test code = Sodium Lvl) 136 135-145 [place] 153771-08-11 08:17:00 Test Item Value Reference Range Interpretation Comments Potassium Lvl (test code = Potassium 3.9 3.5-5.1 Lvl) [place] 153771-08-11 08:17:00 Test Item Value Reference Range Interpretation Comments Chloride Lvl (test code = Chloride Lvl) 103 95-109 [place] 153771-08-11 08:17:00 Test Item Value Reference Range Interpretation Comments CO2 (test code = CO2) 30 24-32 [place] 153771-08-11 08:17:00 Test Item Value Reference Range Interpretation Comments AGAP (test code = AGAP) 6.9 10.0-20.0 [place] 153771-08-11 08:17:00 Test Item Value Reference Range Interpretation Comments Calcium Lvl (test code = Calcium Lvl) 8.5 8.5-10.5 [place] 153771-08-11 08:17:00 Test Item Value Reference Range Interpretation Comments eGFR (test code = eGFR) 10 [place] 153771-08-11 08:17:00 Test Item Value Reference Range Interpretation Comments Phosphorus (test code = Phosphorus) 3.0 2.5-4.5 [facility]2021-08-11 08:17:00 Test Item Value Reference Range Interpretation Comments Magnesium Lvl (test code = Magnesium 2.4 1.8-2.4 Lvl) [facility] HospitalWkjxnhdYGMWLMBINI9518-42-56 08:17:00 Test Item Value Reference Range Interpretation Comments WBC (test code = WBC) 2.3 3.7-10.4 [facility] HospitalHlmisttGKBNTIZEZF2044-94-11 08:17:00 Test Item Value Reference Range Interpretation Comments RBC (test code = RBC) 2.65 4.20-5.40 [facility] HospitalRjnnzydUEASHAGZDY3573-16-39 08:17:00 Test Item Value Reference Range Interpretation Comments Hgb (test code = Hgb) 7.9 12.0-16.0 [facility] HospitalRxyouatBMHQWIFSKP2848-68-52 08:17:00 Test Item Value Reference Range Interpretation Comments Hct (test code = Hct) 24.0 36.0-48.0 [facility] HospitalPhilxjnQOBNNHXKLM7174-44-30 08:17:00 Test Item Value Reference Range Interpretation Comments MCV (test code = MCV) 90.6 80.0-98.0 [facility] HospitalQoiffooROBKZOAOYH4686-41-38 08:17:00 Test Item Value Reference Range Interpretation Comments MCH (test code = MCH) 29.7 pg 27.0-31.0 [facility] HospitalJamlwadHLMPOPCEWZ6478-23-99 08:17:00 Test Item Value Reference Range Interpretation Comments MCHC (test code = MCHC) 32.7 32.0-36.0 [facility] HospitalUafzndaPDNHLDNBVQ7633-52-73 08:17:00 Test Item Value Reference Range Interpretation Comments RDW (test code = RDW) 19.1 11.5-14.5 [facility] HospitalAjibjmsUQBXCBMYBR6850-37-81 08:17:00 Test Item Value Reference Range Interpretation Comments Platelet (test code = Platelet) 71 133-450 [facility] HospitalWaywxdfCJUKIPALBE9544-25-37 08:17:00 Test Item Value Reference Range Interpretation Comments MPV (test code = MPV) 9.9 7.4-10.4 [facility] HospitalJjbmditGFIYZPUOZW5928-93-33 08:17:00 Test Item Value Reference Range Interpretation Comments Segs (test code = Segs) 56.1 45.0-75.0 [place] [address]-08-11 08:17:00 Test Item Value Reference Range Interpretation Comments Lymphocytes (test code = Lymphocytes) 28.9 20.0-40.0 [place] 944591-08-11 08:17:00 Test Item Value Reference Range Interpretation Comments Monocytes (test code = Monocytes) 8.1 2.0-12.0 [facility] HospitalEigwelnCZZCDGORWB6562-82-36 08:17:00 Test Item Value Reference Range Interpretation Comments Eosinophils (test code = 5.9 See_Comment [A utomated message] The Eosinophils) system which ge nerated this result tra nsmitted reference range : <=4.0. The reference r leo was not used to int erpret this result as normal/abnormal . [place] 944591-08-11 08:17:00 Test Item Value Reference Range Interpretation Comments Basophils (test code = 1.0 See_Comment [Aut omated message] The Basophils) system which ge nerated this result tra nsmitted reference range : <=1.0. The reference r leo was not used to int erpret this result as normal/abnormal . [facility] HospitalYdtfmeqZGMZPTUSYT3856-15-66 08:17:00 Test Item Value Reference Range Interpretation Comments Neutrophils # (test code = Neutrophils 1.3 1.5-8.1 #) [facility] HospitalPwmzsvmNTWZNJYMWQ5705-61-54 08:17:00 Test Item Value Reference Range Interpretation Comments Lymphocytes # (test code = Lymphocytes 0.7 1.0-5.5 #) [facility] HospitalIphtccyGFQTYCFAJD3208-63-09 08:17:00 Test Item Value Reference Range Interpretation Comments Monocytes # (test code 0.2 See_Comment [Aut omated message] The = Monocytes #) system which generated this result tra nsmitted reference range : <=0.8. The reference r leo was not used to int erpret this result as normal/abnormal . [place] 944591-08-11 08:17:00 Test Item Value Reference Range Interpretation Comments Eosinophils # (test code 0.1 See_Comment [A utomated message] The = Eosinophils #) system whic h generated this result tra nsmitted reference range : <=0.5. The reference r leo was not used to int erpret this result as normal/abnormal . [facility]2021-08-11 08:17:00 Test Item Value Reference Range Interpretation Comments Glucose Lvl (test code = Glucose Lvl) 94 70-99 [place] 153771-08-11 08:17:00 Test Item Value Reference Range Interpretation Comments BUN (test code = BUN) 27 7-22 [place] 153771-08-11 08:17:00 Test Item Value Reference Range Interpretation Comments Creatinine Lvl (test code = Creatinine 4.95 0.50-1.40 Lvl) [place] 153771-08-11 08:17:00 Test Item Value Reference Range Interpretation Comments Sodium Lvl (test code = Sodium Lvl) 136 135-145 [facility]2021-08-11 08:17:00 Test Item Value Reference Range Interpretation Comments Potassium Lvl (test code = Potassium 3.9 3.5-5.1 Lvl) [facility]2021-08-11 08:17:00 Test Item Value Reference Range Interpretation Comments Chloride Lvl (test code = Chloride Lvl) 103 95-109 [facility]2021-08-11 08:17:00 Test Item Value Reference Range Interpretation Comments CO2 (test code = CO2) 30 24-32 [facility]2021-08-11 08:17:00 Test Item Value Reference Range Interpretation Comments AGAP (test code = AGAP) 6.9 10.0-20.0 [facility]2021-08-11 08:17:00 Test Item Value Reference Range Interpretation Comments Calcium Lvl (test code = Calcium Lvl) 8.5 8.5-10.5 [facility]2021-08-11 08:17:00 Test Item Value Reference Range Interpretation Comments eGFR (test code = eGFR) 10 [place] 153771-08-11 08:17:00 Test Item Value Reference Range Interpretation Comments Phosphorus (test code = Phosphorus) 3.0 2.5-4.5 [place] 153771-08-11 08:17:00 Test Item Value Reference Range Interpretation Comments Magnesium Lvl (test code = Magnesium 2.4 1.8-2.4 Lvl) [facility]glfpkgBLYMTOLYNF6654-98-78 08:17:00 Test Item Value Reference Range Interpretation Comments WBC (test code = WBC) 2.3 3.7-10.4 [place] 944591-08-11 08:17:00 Test Item Value Reference Range Interpretation Comments RBC (test code = RBC) 2.65 4.20-5.40 [place] 944591-08-11 08:17:00 Test Item Value Reference Range Interpretation Comments Hgb (test code = Hgb) 7.9 12.0-16.0 [place] 944591-08-11 08:17:00 Test Item Value Reference Range Interpretation Comments Hct (test code = Hct) 24.0 36.0-48.0 [place] 944591-08-11 08:17:00 Test Item Value Reference Range Interpretation Comments MCV (test code = MCV) 90.6 80.0-98.0 [facility] HospitalSevilsbZNMHOTWYYH8907-30-06 08:17:00 Test Item Value Reference Range Interpretation Comments MCH (test code = MCH) 29.7 pg 27.0-31.0 [facility] HospitalMkwbtdgYXCKOKKYKI3164-03-28 08:17:00 Test Item Value Reference Range Interpretation Comments MCHC (test code = MCHC) 32.7 32.0-36.0 [facility] HospitalShyfljaVNCNQYNVKI7347-03-52 08:17:00 Test Item Value Reference Range Interpretation Comments RDW (test code = RDW) 19.1 11.5-14.5 [facility] HospitalUbzrojjHNTBVXDCYT1120-06-66 08:17:00 Test Item Value Reference Range Interpretation Comments Platelet (test code = Platelet) 71 133-450 [facility] HospitalLreozgzUEXSMQWLHJ9923-58-55 08:17:00 Test Item Value Reference Range Interpretation Comments MPV (test code = MPV) 9.9 7.4-10.4 [facility] HospitalAeujfblQICTCUTHCC5423-21-27 08:17:00 Test Item Value Reference Range Interpretation Comments Segs (test code = Segs) 56.1 45.0-75.0 [facility] HospitalNythwhbVETQGFBLLR9293-23-65 08:17:00 Test Item Value Reference Range Interpretation Comments Lymphocytes (test code = Lymphocytes) 28.9 20.0-40.0 [place] 944591-08-11 08:17:00 Test Item Value Reference Range Interpretation Comments Monocytes (test code = Monocytes) 8.1 2.0-12.0 [place] 944591-08-11 08:17:00 Test Item Value Reference Range Interpretation Comments Eosinophils (test code = 5.9 See_Comment [A utomated message] The Eosinophils) system which ge nerated this result tra nsmitted reference range : <=4.0. The reference r leo was not used to int erpret this result as normal/abnormal . [place] 944591-08-11 08:17:00 Test Item Value Reference Range Interpretation Comments Basophils (test code = 1.0 See_Comment [Aut omated message] The Basophils) system which ge nerated this result tra nsmitted reference range : <=1.0. The reference r leo was not used to int erpret this result as normal/abnormal . [facility] HospitalBurodoyBMOPSIVLHE7928-37-72 08:17:00 Test Item Value Reference Range Interpretation Comments Neutrophils # (test code = Neutrophils 1.3 1.5-8.1 #) [facility] HospitalEkwxeqiQOABGFFSWB6152-20-36 08:17:00 Test Item Value Reference Range Interpretation Comments Lymphocytes # (test code = Lymphocytes 0.7 1.0-5.5 #) [facility] HospitalCjwmphgTMEMHNDOCX0157-11-39 08:17:00 Test Item Value Reference Range Interpretation Comments Monocytes # (test code 0.2 See_Comment [Aut omated message] The = Monocytes #) system which generated this result tra nsmitted reference range : <=0.8. The reference r leo was not used to int erpret this result as normal/abnormal . [facility] HospitalQvvasinCXLUSFBAFR2260-16-39 08:17:00 Test Item Value Reference Range Interpretation Comments Eosinophils # (test code 0.1 See_Comment [A utomated message] The = Eosinophils #) system whic h generated this result tra nsmitted reference range : <=0.5. The reference r leo was not used to int erpret this result as normal/abnormal . [facility] ZTKUS0410-79-14 09:30:00 Test Item Value Reference Range Interpretation Comments Glucose Lvl (test code = Glucose Lvl) 61 70-99 [facility] XPHSM8612-01-21 09:30:00 Test Item Value Reference Range Interpretation Comments BUN (test code = BUN) 13 7-22 [facility] PQPDD1797-07-51 09:30:00 Test Item Value Reference Range Interpretation Comments Creatinine Lvl (test code = Creatinine 3.71 0.50-1.40 Lvl) [place]3771-08-10 09:30:00 Test Item Value Reference Range Interpretation Comments Sodium Lvl (test code = Sodium Lvl) 136 135-145 [place] 153771-08-10 09:30:00 Test Item Value Reference Range Interpretation Comments Potassium Lvl (test code = Potassium 4.3 3.5-5.1 Lvl) [place] 153771-08-10 09:30:00 Test Item Value Reference Range Interpretation Comments Chloride Lvl (test code = Chloride Lvl) 103 95-109 [place] 153771-08-10 09:30:00 Test Item Value Reference Range Interpretation Comments CO2 (test code = CO2) 27 24-32 [place] 153771-08-10 09:30:00 Test Item Value Reference Range Interpretation Comments Calcium Lvl (test code = Calcium Lvl) 7.9 8.5-10.5 [place] 153771-08-10 09:30:00 Test Item Value Reference Range Interpretation Comments AGAP (test code = AGAP) 10.3 10.0-20.0 [place] 153771-08-10 09:30:00 Test Item Value Reference Range Interpretation Comments eGFR (test code = eGFR) 15 [place] 153771-08-10 09:30:00 Test Item Value Reference Range Interpretation Comments Magnesium Lvl (test code = Magnesium 2.3 1.8-2.4 Lvl) [place] 153771-08-10 09:30:00 Test Item Value Reference Range Interpretation Comments Phosphorus (test code = Phosphorus) 3.1 2.5-4.5 [place] [place] 09:30:00 Test Item Value Reference Range Interpretation Comments Segs (test code = Segs) 61.5 45.0-75.0 [place] 944591-08-10 09:30:00 Test Item Value Reference Range Interpretation Comments Lymphocytes (test code = Lymphocytes) 24.6 20.0-40.0 [place] 944591-08-10 09:30:00 Test Item Value Reference Range Interpretation Comments Monocytes (test code = Monocytes) 7.4 2.0-12.0 [place] 944591-08-10 09:30:00 Test Item Value Reference Range Interpretation Comments Eosinophils (test code = 5.5 See_Comment [A utomated message] The Eosinophils) system which ge nerated this result tra nsmitted reference range : <=4.0. The reference r leo was not used to int erpret this result as normal/abnormal . [place] 944591-08-10 09:30:00 Test Item Value Reference Range Interpretation Comments Basophils (test code = 1.0 See_Comment [Aut omated message] The Basophils) system which ge nerated this result tra nsmitted reference range : <=1.0. The reference r leo was not used to int erpret this result as normal/abnormal . [place] 944591-08-10 09:30:00 Test Item Value Reference Range Interpretation Comments Neutrophils # (test code = Neutrophils 1.6 1.5-8.1 #) [place] 944591-08-10 09:30:00 Test Item Value Reference Range Interpretation Comments Lymphocytes # (test code = Lymphocytes 0.6 1.0-5.5 #) [address]08-10 09:30:00 Test Item Value Reference Range Interpretation Comments Monocytes # (test code 0.2 See_Comment [Aut omated message] The = Monocytes #) system which generated this result tra nsmitted reference range : <=0.8. The reference r leo was not used to int erpret this result as normal/abnormal . [place] 944591-08-10 09:30:00 Test Item Value Reference Range Interpretation Comments Eosinophils # (test code 0.1 See_Comment [A utomated message] The = Eosinophils #) system ic generated this result tra nsmitted reference range : <=0.5. The reference r leo was not used to int erpret this result as normal/abnormal . [place]4591-08-10 09:30:00 Test Item Value Reference Range Interpretation [...] studies, if clinically indicated, are recommended. CPT: 28456 [facility]px[facility]zpiMCRADINTRV0154-58-65 09:30:00 Test Item Value Reference Range Interpretation Comments WBC (test code = WBC) 2.5 3.7-10.4 [facility] HospitalUaikdbrIVPFDZSBAE8769-64-32 09:30:00 Test Item Value Reference Range Interpretation Comments RBC (test code = RBC) 2.68 4.20-5.40 [facility] HospitalIhdmpftWMSODZYIUE0779-42-42 09:30:00 Test Item Value Reference Range Interpretation Comments Hgb (test code = Hgb) 8.2 12.0-16.0 [place] [address]-08-10 09:30:00 Test Item Value Reference Range Interpretation Comments Hct (test code = Hct) 24.3 36.0-48.0 [facility] HospitalAjngiwmRQERBLLCHK2610-95-80 09:30:00 Test Item Value Reference Range Interpretation Comments MCV (test code = MCV) 90.9 80.0-98.0 [facility] HospitalGgorkhdYAQKOMCUDJ2811-83-49 09:30:00 Test Item Value Reference Range Interpretation Comments MCH (test code = MCH) 30.5 pg 27.0-31.0 [facility] HospitalOfghrmzFUTQGCIOVF1025-59-58 09:30:00 Test Item Value Reference Range Interpretation Comments MCHC (test code = MCHC) 33.6 32.0-36.0 [facility] HospitalZzmefwxZWDVNXGKTP7202-60-53 09:30:00 Test Item Value Reference Range Interpretation Comments RDW (test code = RDW) 19.4 11.5-14.5 [place] 944591-08-10 09:30:00 Test Item Value Reference Range Interpretation Comments Platelet (test code = Platelet) 70 133-450 [facility] HospitalQvuehsrEAAHEQQYAY7347-87-32 09:30:00 Test Item Value Reference Range Interpretation Comments MPV (test code = MPV) 10.7 7.4-10.4 [facility]2021-08-10 09:30:00 Test Item Value Reference Range Interpretation Comments Glucose Lvl (test code = Glucose Lvl) 61 70-99 [facility]2021-08-10 09:30:00 Test Item Value Reference Range Interpretation Comments BUN (test code = BUN) 13 7-22 [place] 153771-08-10 09:30:00 Test Item Value Reference Range Interpretation Comments Creatinine Lvl (test code = Creatinine 3.71 0.50-1.40 Lvl) [place]-08-10 09:30:00 Test Item Value Reference Range Interpretation Comments Sodium Lvl (test code = Sodium Lvl) 136 135-145 [place]-08-10 09:30:00 Test Item Value Reference Range Interpretation Comments Potassium Lvl (test code = Potassium 4.3 3.5-5.1 Lvl) [place]71-08-10 09:30:00 Test Item Value Reference Range Interpretation Comments Chloride Lvl (test code = Chloride Lvl) 103 95-109 [place]-08-10 09:30:00 Test Item Value Reference Range Interpretation Comments CO2 (test code = CO2) 27 24-32 [place]71-08-10 09:30:00 Test Item Value Reference Range Interpretation Comments Calcium Lvl (test code = Calcium Lvl) 7.9 8.5-10.5 [place]3771-08-10 09:30:00 Test Item Value Reference Range Interpretation Comments AGAP (test code = AGAP) 10.3 10.0-20.0 [place]3771-08-10 09:30:00 Test Item Value Reference Range Interpretation Comments eGFR (test code = eGFR) 15 [place] 153771-08-10 09:30:00 Test Item Value Reference Range Interpretation Comments Magnesium Lvl (test code = Magnesium 2.3 1.8-2.4 Lvl) [place]3771-08-10 09:30:00 Test Item Value Reference Range Interpretation Comments Phosphorus (test code = Phosphorus) 3.1 2.5-4.5 [facility] HospitalLgszbdoQKSWWUDDOG4022-85-90 09:30:00 Test Item Value Reference Range Interpretation Comments Segs (test code = Segs) 61.5 45.0-75.0 [place] 944591-08-10 09:30:00 Test Item Value Reference Range Interpretation Comments Lymphocytes (test code = Lymphocytes) 24.6 20.0-40.0 [place] 944591-08-10 09:30:00 Test Item Value Reference Range Interpretation Comments Monocytes (test code = Monocytes) 7.4 2.0-12.0 [place] 9445[place]-08-10 09:30:00 Test Item Value Reference Range Interpretation Comments Eosinophils (test code = 5.5 See_Comment [A utomated message] The Eosinophils) system which ge nerated this result tra nsmitted reference range : <=4.0. The reference r leo was not used to int erpret this result as normal/abnormal . [facility] HospitalSoqshhfLVYCIUOQAE5309-42-15 09:30:00 Test Item Value Reference Range Interpretation Comments Basophils (test code = 1.0 See_Comment [Aut omated message] The Basophils) system which ge nerated this result tra nsmitted reference range : <=1.0. The reference r leo was not used to int erpret this result as normal/abnormal . [place] 94[place]91-08-10 09:30:00 Test Item Value Reference Range Interpretation Comments Neutrophils # (test code = Neutrophils 1.6 1.5-8.1 #) [facility] HospitalCjrixujEAHHJSMSMW5657-47-86 09:30:00 Test Item Value Reference Range Interpretation Comments Lymphocytes # (test code = Lymphocytes 0.6 1.0-5.5 #) [facility] HospitalSdtwozgXMABGFWHQG1413-62-74 09:30:00 Test Item Value Reference Range Interpretation Comments Monocytes # (test code 0.2 See_Comment [Aut omated message] The = Monocytes #) system which generated this result tra nsmitted reference range : <=0.8. The reference r leo was not used to int erpret this result as normal/abnormal . [place] 94[place]-08-10 09:30:00 Test Item Value Reference Range Interpretation Comments Eosinophils # (test code 0.1 See_Comment [A utomated message] The = Eosinophils #) system whic h generated this result tra nsmitted reference range : <=0.5. The reference r leo was not used to int erpret this result as normal/abnormal . [facility] HospitalBdzlsiyWOTKXXJHVS8066-38-60 09:30:00 Test Item Value Reference Range Interpretation [...] studies, if clinically indicated, are recommended. CPT: 09026 [facility] HospitalYnpwethFERFHMUXGZ0648-19-38 09:30:00 Test Item Value Reference Range Interpretation Comments WBC (test code = WBC) 2.5 3.7-10.4 [place] [address]-08-10 09:30:00 Test Item Value Reference Range Interpretation Comments RBC (test code = RBC) 2.68 4.20-5.40 [place] [address]-08-10 09:30:00 Test Item Value Reference Range Interpretation Comments Hgb (test code = Hgb) 8.2 12.0-16.0 [place] [address]-08-10 09:30:00 Test Item Value Reference Range Interpretation Comments Hct (test code = Hct) 24.3 36.0-48.0 [place] [address]-08-10 09:30:00 Test Item Value Reference Range Interpretation Comments MCV (test code = MCV) 90.9 80.0-98.0 [place] [address]-08-10 09:30:00 Test Item Value Reference Range Interpretation Comments MCH (test code = MCH) 30.5 pg 27.0-31.0 [place] [address]-08-10 09:30:00 Test Item Value Reference Range Interpretation Comments MCHC (test code = MCHC) 33.6 32.0-36.0 [place] [address]-08-10 09:30:00 Test Item Value Reference Range Interpretation Comments RDW (test code = RDW) 19.4 11.5-14.5 [place] 944591-08-10 09:30:00 Test Item Value Reference Range Interpretation Comments Platelet (test code = Platelet) 70 133-450 [place] [address]-08-10 09:30:00 Test Item Value Reference Range Interpretation Comments MPV (test code = MPV) 10.7 7.4-10.4 [place]3771-08-10 09:30:00 Test Item Value Reference Range Interpretation Comments Glucose Lvl (test code = Glucose Lvl) 61 70-99 [place]-08-10 09:30:00 Test Item Value Reference Range Interpretation Comments BUN (test code = BUN) 13 7-22 [place]71-08-10 09:30:00 Test Item Value Reference Range Interpretation Comments Creatinine Lvl (test code = Creatinine 3.71 0.50-1.40 Lvl) [place]-08-10 09:30:00 Test Item Value Reference Range Interpretation Comments Sodium Lvl (test code = Sodium Lvl) 136 135-145 [place]-08-10 09:30:00 Test Item Value Reference Range Interpretation Comments Potassium Lvl (test code = Potassium 4.3 3.5-5.1 Lvl) [place]71-08-10 09:30:00 Test Item Value Reference Range Interpretation Comments Chloride Lvl (test code = Chloride Lvl) 103 95-109 [place]3771-08-10 09:30:00 Test Item Value Reference Range Interpretation Comments CO2 (test code = CO2) 27 24-32 [place]71-08-10 09:30:00 Test Item Value Reference Range Interpretation Comments Calcium Lvl (test code = Calcium Lvl) 7.9 8.5-10.5 [facility]2021-08-10 09:30:00 Test Item Value Reference Range Interpretation Comments AGAP (test code = AGAP) 10.3 10.0-20.0 [place]3771-08-10 09:30:00 Test Item Value Reference Range Interpretation Comments eGFR (test code = eGFR) 15 [place]3771-08-10 09:30:00 Test Item Value Reference Range Interpretation Comments Magnesium Lvl (test code = Magnesium 2.3 1.8-2.4 Lvl) [place]3771-08-10 09:30:00 Test Item Value Reference Range Interpretation Comments Phosphorus (test code = Phosphorus) 3.1 2.5-4.5 [facility]HPZKCWPJ6595[facility]01-61 09:30:00 Test Item Value Reference Range Interpretation Comments Segs (test code = Segs) 61.5 45.0-75.0 [place] 944591-08-10 09:30:00 Test Item Value Reference Range Interpretation Comments Lymphocytes (test code = Lymphocytes) 24.6 20.0-40.0 [place] [address]-08-10 09:30:00 Test Item Value Reference Range Interpretation Comments Monocytes (test code = Monocytes) 7.4 2.0-12.0 [place] 944591-08-10 09:30:00 Test Item Value Reference Range Interpretation Comments Eosinophils (test code = 5.5 See_Comment [A utomated message] The Eosinophils) system which ge nerated this result tra nsmitted reference range : <=4.0. The reference r leo was not used to int erpret this result as normal/abnormal . [place] [address]-08-10 09:30:00 Test Item Value Reference Range Interpretation Comments Basophils (test code = 1.0 See_Comment [Aut omated message] The Basophils) system which ge nerated this result tra nsmitted reference range : <=1.0. The reference r leo was not used to int erpret this result as normal/abnormal . [place] 944591-08-10 09:30:00 Test Item Value Reference Range Interpretation Comments Neutrophils # (test code = Neutrophils 1.6 1.5-8.1 #) [place] [address]-08-10 09:30:00 Test Item Value Reference Range Interpretation Comments Lymphocytes # (test code = Lymphocytes 0.6 1.0-5.5 #) [place] 944591-08-10 09:30:00 Test Item Value Reference Range Interpretation Comments Monocytes # (test code 0.2 See_Comment [Aut omated message] The = Monocytes #) system which generated this result tra nsmitted reference range : <=0.8. The reference r leo was not used to int erpret this result as normal/abnormal . [place] 944591-08-10 09:30:00 Test Item Value Reference Range Interpretation Comments Eosinophils # (test code 0.1 See_Comment [A utomated message] The = Eosinophils #) system [facility] h generated this result tra nsmitted reference range : <=0.5. The reference r leo was not used to int erpret this result as normal/abnormal . [facility] HospitalYynkmvxRWQVYJAIBK8856-12-71 09:30:00 Test Item Value Reference Range Interpretation [...] studies, if clinically indicated, are recommended. CPT: 44787 [facility] HospitalZgwmdreRMNQXYNGTC7833-87-72 09:30:00 Test Item Value Reference Range Interpretation Comments WBC (test code = WBC) 2.5 3.7-10.4 [place] 944591-08-10 09:30:00 Test Item Value Reference Range Interpretation Comments RBC (test code = RBC) 2.68 4.20-5.40 [place] 944591-08-10 09:30:00 Test Item Value Reference Range Interpretation Comments Hgb (test code = Hgb) 8.2 12.0-16.0 [place] [address]-08-10 09:30:00 Test Item Value Reference Range Interpretation Comments Hct (test code = Hct) 24.3 36.0-48.0 [place] [address]-08-10 09:30:00 Test Item Value Reference Range Interpretation Comments MCV (test code = MCV) 90.9 80.0-98.0 [place] 944591-08-10 09:30:00 Test Item Value Reference Range Interpretation Comments MCH (test code = MCH) 30.5 pg 27.0-31.0 [place] [address]-08-10 09:30:00 Test Item Value Reference Range Interpretation Comments MCHC (test code = MCHC) 33.6 32.0-36.0 [place] [address]-08-10 09:30:00 Test Item Value Reference Range Interpretation Comments RDW (test code = RDW) 19.4 11.5-14.5 [place] [address]-08-10 09:30:00 Test Item Value Reference Range Interpretation Comments Platelet (test code = Platelet) 70 133-450 [facility] HospitalFjtmcwdCOONFXCKMX2930-65-88 09:30:00 Test Item Value Reference Range Interpretation Comments MPV (test code = MPV) 10.7 7.4-10.4 [place]3771-08-10 09:30:00 Test Item Value Reference Range Interpretation Comments Glucose Lvl (test code = Glucose Lvl) 61 70-99 [place]37[place]-08-10 09:30:00 Test Item Value Reference Range Interpretation Comments BUN (test code = BUN) 13 7-22 [place]3771-08-10 09:30:00 Test Item Value Reference Range Interpretation Comments Creatinine Lvl (test code = Creatinine 3.71 0.50-1.40 Lvl) [place]3771-08-10 09:30:00 Test Item Value Reference Range Interpretation Comments Sodium Lvl (test code = Sodium Lvl) 136 135-145 [place]-08-10 09:30:00 Test Item Value Reference Range Interpretation Comments Potassium Lvl (test code = Potassium 4.3 3.5-5.1 Lvl) [facility]2021-08-10 09:30:00 Test Item Value Reference Range Interpretation Comments Chloride Lvl (test code = Chloride Lvl) 103 95-109 [facility]2021-08-10 09:30:00 Test Item Value Reference Range Interpretation Comments CO2 (test code = CO2) 27 24-32 [place]3771-08-10 09:30:00 Test Item Value Reference Range Interpretation Comments Calcium Lvl (test code = Calcium Lvl) 7.9 8.5-10.5 [place]3771-08-10 09:30:00 Test Item Value Reference Range Interpretation Comments AGAP (test code = AGAP) 10.3 10.0-20.0 [place]3771-08-10 09:30:00 Test Item Value Reference Range Interpretation Comments eGFR (test code = eGFR) 15 [place]3771-08-10 09:30:00 Test Item Value Reference Range Interpretation Comments Magnesium Lvl (test code = Magnesium 2.3 1.8-2.4 Lvl) [place]3771-08-10 09:30:00 Test Item Value Reference Range Interpretation Comments Phosphorus (test code = Phosphorus) 3.1 2.5-4.5 [facility] HospitalSdxycebUVCQZJWWRC3641-53-55 09:30:00 Test Item Value Reference Range Interpretation Comments Segs (test code = Segs) 61.5 45.0-75.0 [facility] HospitalJeqvvbfXRBLYXREBC8061-40-79 09:30:00 Test Item Value Reference Range Interpretation Comments Lymphocytes (test code = Lymphocytes) 24.6 20.0-40.0 [place] 944591-08-10 09:30:00 Test Item Value Reference Range Interpretation Comments Monocytes (test code = Monocytes) 7.4 2.0-12.0 [place] 944591-08-10 09:30:00 Test Item Value Reference Range Interpretation Comments Eosinophils (test code = 5.5 See_Comment [A utomated message] The Eosinophils) system which ge nerated this result tra nsmitted reference range : <=4.0. The reference r leo was not used to int erpret this result as normal/abnormal . [facility] HospitalHxhghtcQEKSQGQLMU4679-88-23 09:30:00 Test Item Value Reference Range Interpretation Comments Basophils (test code = 1.0 See_Comment [Aut omated message] The Basophils) system which ge nerated this result tra nsmitted reference range : <=1.0. The reference r leo was not used to int erpret this result as normal/abnormal . [facility] HospitalUmavhkmQSLSBXTBPW3543-66-20 09:30:00 Test Item Value Reference Range Interpretation Comments Neutrophils # (test code = Neutrophils 1.6 1.5-8.1 #) [place] 944591-08-10 09:30:00 Test Item Value Reference Range Interpretation Comments Lymphocytes # (test code = Lymphocytes 0.6 1.0-5.5 #) [place] 944591-08-10 09:30:00 Test Item Value Reference Range Interpretation Comments Monocytes # (test code 0.2 See_Comment [Aut omated message] The = Monocytes #) system which generated this result tra nsmitted reference range : <=0.8. The reference r leo was not used to int erpret this result as normal/abnormal . [place]4591-08-10:30:00 Test Item Value Reference Range Interpretation Comments Eosinophils # (test code 0.1 See_Comment [A utomated message] The = Eosinophils #) system [employer] generated this result tra nsmitted reference range : <=0.5. The reference r leo was not used to int erpret this result as normal/abnormal . [facility] HospitalNkeyclaUHDMTQORWB1874-30-33 09:30:00 Test Item Value Reference Range Interpretation [...] studies, if clinically indicated, are recommended. CPT: 43912 [facility] HospitalZpptpaoRMYEEQHWTX2102-47-80 09:30:00 Test Item Value Reference Range Interpretation Comments WBC (test code = WBC) 2.5 3.7-10.4 [place] 944591-08-10 09:30:00 Test Item Value Reference Range Interpretation Comments RBC (test code = RBC) 2.68 4.20-5.40 [place] 944591-08-10 09:30:00 Test Item Value Reference Range Interpretation Comments Hgb (test code = Hgb) 8.2 12.0-16.0 [place] 944591-08-10 09:30:00 Test Item Value Reference Range Interpretation Comments Hct (test code = Hct) 24.3 36.0-48.0 [place] [address]-08-10 09:30:00 Test Item Value Reference Range Interpretation Comments MCV (test code = MCV) 90.9 80.0-98.0 [place] 944591-08-10 09:30:00 Test Item Value Reference Range Interpretation Comments MCH (test code = MCH) 30.5 pg 27.0-31.0 [place] 944591-08-10 09:30:00 Test Item Value Reference Range Interpretation Comments MCHC (test code = MCHC) 33.6 32.0-36.0 [place] [address]-08-10 09:30:00 Test Item Value Reference Range Interpretation Comments RDW (test code = RDW) 19.4 11.5-14.5 [place] 944591-08-10 09:30:00 Test Item Value Reference Range Interpretation Comments Platelet (test code = Platelet) 70 133-450 [facility] HospitalMtmebvzPRNMPZXVNJ1936-45-61 09:30:00 Test Item Value Reference Range Interpretation Comments MPV (test code = MPV) 10.7 7.4-10.4 [facility]2021-08-09 05:10:00 Test Item Value Reference Range Interpretation Comments Glucose Lvl (test code = Glucose Lvl) 69 70-99 [facility]2021-08-09 05:10:00 Test Item Value Reference Range Interpretation Comments BUN (test code = BUN) 29 7-22 [place]3771-08-09 05:10:00 Test Item Value Reference Range Interpretation Comments Creatinine Lvl (test code = Creatinine 5.14 0.50-1.40 Lvl) [facility]2021-08-09 05:10:00 Test Item Value Reference Range Interpretation Comments Sodium Lvl (test code = Sodium Lvl) 134 135-145 [place]3771-08-09 05:10:00 Test Item Value Reference Range Interpretation Comments Potassium Lvl (test code = Potassium 5.1 3.5-5.1 Lvl) [facility]2021-08-09 05:10:00 Test Item Value Reference Range Interpretation Comments Chloride Lvl (test code = Chloride Lvl) 98 95-109 [facility]2021-08-09 05:10:00 Test Item Value Reference Range Interpretation Comments CO2 (test code = CO2) 29 24-32 [place]37[place]-08-09 05:10:00 Test Item Value Reference Range Interpretation Comments Calcium Lvl (test code = Calcium Lvl) 7.6 8.5-10.5 [facility]2021-08-09 05:10:00 Test Item Value Reference Range Interpretation Comments AGAP (test code = AGAP) 12.1 10.0-20.0 [place]37[place]-08-09 05:10:00 Test Item Value Reference Range Interpretation Comments eGFR (test code = eGFR) 10 [facility]2021-08-09 05:10:00 Test Item Value Reference Range Interpretation Comments Magnesium Lvl (test code = Magnesium 2.3 1.8-2.4 Lvl) [facility]2021-08-09 05:10:00 Test Item Value Reference Range Interpretation Comments Phosphorus (test code = Phosphorus) 5.0 2.5-4.5 [place] 944591-08-09 05:10:00 Test Item Value Reference Range Interpretation Comments WBC (test code = WBC) 2.7 3.7-10.4 [place] 944591-08-09 05:10:00 Test Item Value Reference Range Interpretation Comments RBC (test code = RBC) 2.80 4.20-5.40 [place] 944591-08-09 05:10:00 Test Item Value Reference Range Interpretation Comments Hgb (test code = Hgb) 8.5 12.0-16.0 [place] 944591-08-09 05:10:00 Test Item Value Reference Range Interpretation Comments Hct (test code = Hct) 25.7 36.0-48.0 [place] 944591-08-09 05:10:00 Test Item Value Reference Range Interpretation Comments MCV (test code = MCV) 91.7 80.0-98.0 [place] 944591-08-09 05:10:00 Test Item Value Reference Range Interpretation Comments MCH (test code = MCH) 30.4 pg 27.0-31.0 [facility] HospitalDtxhpgbIAAXMACQQJ7448-32-78 05:10:00 Test Item Value Reference Range Interpretation Comments MCHC (test code = MCHC) 33.1 32.0-36.0 [place] 944591-08-09 05:10:00 Test Item Value Reference Range Interpretation Comments RDW (test code = RDW) 19.2 11.5-14.5 [place] 944591-08-09 05:10:00 Test Item Value Reference Range Interpretation Comments Platelet (test code = Platelet) 72 133-450 [facility] HospitalQhexnfzEBYXEFDKZS2425-43-60 05:10:00 Test Item Value Reference Range Interpretation Comments MPV (test code = MPV) 9.9 7.4-10.4 [facility] HospitalKgzvhonTFGKPPMRTM4707-11-56 05:10:00 Test Item Value Reference Range Interpretation Comments Segs (test code = Segs) 72.6 45.0-75.0 [facility] HospitalLbmgbxrQUYMMVPCXG0232-35-64 05:10:00 Test Item Value Reference Range Interpretation Comments Lymphocytes (test code = Lymphocytes) 15.9 20.0-40.0 [place]4591-08-09 05:10:00 Test Item Value Reference Range Interpretation Comments Monocytes (test code = Monocytes) 7.3 2.0-12.0 [facility] HospitalNogtrciUIIJZOMVMK9246-02-65 05:10:00 Test Item Value Reference Range Interpretation Comments Eosinophils (test code = 3.4 See_Comment [A utomated message] The Eosinophils) system which ge nerated this result tra nsmitted reference range : <=4.0. The reference r leo was not used to int erpret this result as normal/abnormal . [place] 944591-08-09 05:10:00 Test Item Value Reference Range Interpretation Comments Basophils (test code = 0.8 See_Comment [Aut omated message] The Basophils) system which ge nerated this result tra nsmitted reference range : <=1.0. The reference r leo was not used to int erpret this result as normal/abnormal . [facility] HospitalLawlzvcMDHOOESZDT2778-73-62 05:10:00 Test Item Value Reference Range Interpretation Comments Neutrophils # (test code = Neutrophils 1.9 1.5-8.1 #) [facility] HospitalXwllukaEHZBKNQPZH8255-44-28 05:10:00 Test Item Value Reference Range Interpretation Comments Lymphocytes # (test code = Lymphocytes 0.4 1.0-5.5 #) [place] 944591-08-09 05:10:00 Test Item Value Reference Range Interpretation Comments Monocytes # (test code 0.2 See_Comment [Aut omated message] The = Monocytes #) system which generated this result tra nsmitted reference range : <=0.8. The reference r leo was not used to int erpret this result as normal/abnormal . [facility] HospitalEutvmcoOUQONKFMZF2834-89-06 05:10:00 Test Item Value Reference Range Interpretation Comments Eosinophils # (test code 0.1 See_Comment [A utomated message] The = Eosinophils #) system wh h generated this result tra nsmitted reference range : <=0.5. The reference r leo was not used to int erpret this result as normal/abnormal . [facility]ATHY[facility] YZTSKVB9320-35-40 05:10:00 Test Item Value Reference Range Interpretation Comments Ca Ion WB (test code = Ca Ion WB) 1.10 1.05-1.25 [facility] HospitalATHYROID [id number] 05:10:00 Test Item Value Reference Range Interpretation Comments Ca Norm WB (test code = Ca Norm WB) 1.06 1.05-1.25 [facility]2021-08-09 05:10:00 Test Item Value Reference Range Interpretation Comments Glucose Lvl (test code = Glucose Lvl) 69 70-99 [facility]2021-08-09 05:10:00 Test Item Value Reference Range Interpretation Comments BUN (test code = BUN) 29 7-22 [facility]2021-08-09 05:10:00 Test Item Value Reference Range Interpretation Comments Creatinine Lvl (test code = Creatinine 5.14 0.50-1.40 Lvl) [facility]2021-08-09 05:10:00 Test Item Value Reference Range Interpretation Comments Sodium Lvl (test code = Sodium Lvl) 134 135-145 [facility]2021-08-09 05:10:00 Test Item Value Reference Range Interpretation Comments Potassium Lvl (test code = Potassium 5.1 3.5-5.1 Lvl) [facility]2021-08-09 05:10:00 Test Item Value Reference Range Interpretation Comments Chloride Lvl (test code = Chloride Lvl) 98 95-109 [facility]2021-08-09 05:10:00 Test Item Value Reference Range Interpretation Comments CO2 (test code = CO2) 29 24-32 [facility]2021-08-09 05:10:00 Test Item Value Reference Range Interpretation Comments Calcium Lvl (test code = Calcium Lvl) 7.6 8.5-10.5 [facility]2021-08-09 05:10:00 Test Item Value Reference Range Interpretation Comments AGAP (test code = AGAP) 12.1 10.0-20.0 [place] 153771-08-09 05:10:00 Test Item Value Reference Range Interpretation Comments eGFR (test code = eGFR) 10 [facility]2021-08-09 05:10:00 Test Item Value Reference Range Interpretation Comments Magnesium Lvl (test code = Magnesium 2.3 1.8-2.4 Lvl) [facility]2021-08-09 05:10:00 Test Item Value Reference Range Interpretation Comments Phosphorus (test code = Phosphorus) 5.0 2.5-4.5 [place] 944591-08-09 05:10:00 Test Item Value Reference Range Interpretation Comments WBC (test code = WBC) 2.7 3.7-10.4 [place] 944591-08-09 05:10:00 Test Item Value Reference Range Interpretation Comments RBC (test code = RBC) 2.80 4.20-5.40 [place] 944591-08-09 05:10:00 Test Item Value Reference Range Interpretation Comments Hgb (test code = Hgb) 8.5 12.0-16.0 [place] 944591-08-09 05:10:00 Test Item Value Reference Range Interpretation Comments Hct (test code = Hct) 25.7 36.0-48.0 [place] 944591-08-09 05:10:00 Test Item Value Reference Range Interpretation Comments MCV (test code = MCV) 91.7 80.0-98.0 [place] 944591-08-09 05:10:00 Test Item Value Reference Range Interpretation Comments MCH (test code = MCH) 30.4 pg 27.0-31.0 [facility] HospitalAjmhjyqMNPGRYUFLP6254-16-61 05:10:00 Test Item Value Reference Range Interpretation Comments MCHC (test code = MCHC) 33.1 32.0-36.0 [place] 944591-08-09 05:10:00 Test Item Value Reference Range Interpretation Comments RDW (test code = RDW) 19.2 11.5-14.5 [place] 944591-08-09 05:10:00 Test Item Value Reference Range Interpretation Comments Platelet (test code = Platelet) 72 133-450 [facility] HospitalCibqkgaMIWCVAYYTH6974-68-59 05:10:00 Test Item Value Reference Range Interpretation Comments MPV (test code = MPV) 9.9 7.4-10.4 [facility] HospitalKlnjtmwVMQQYNNNCY1666-12-59 05:10:00 Test Item Value Reference Range Interpretation Comments Segs (test code = Segs) 72.6 45.0-75.0 [facility] HospitalJltvrkgTNJSYQNWGD7674-61-59 05:10:00 Test Item Value Reference Range Interpretation Comments Lymphocytes (test code = Lymphocytes) 15.9 20.0-40.0 [place] 944591-08-09 05:10:00 Test Item Value Reference Range Interpretation Comments Monocytes (test code = Monocytes) 7.3 2.0-12.0 [facility] HospitalOgwjdlwOPYOSSLWMA4816-04-03 05:10:00 Test Item Value Reference Range Interpretation Comments Eosinophils (test code = 3.4 See_Comment [A utomated message] The Eosinophils) system which ge nerated this result tra nsmitted reference range : <=4.0. The reference r leo was not used to int erpret this result as normal/abnormal . [place] 944591-08-09 05:10:00 Test Item Value Reference Range Interpretation Comments Basophils (test code = 0.8 See_Comment [Aut omated message] The Basophils) system which ge nerated this result tra nsmitted reference range : <=1.0. The reference r leo was not used to int erpret this result as normal/abnormal . [facility] HospitalMjjppsnTTDURRUIOU5618-35-35 05:10:00 Test Item Value Reference Range Interpretation Comments Neutrophils # (test code = Neutrophils 1.9 1.5-8.1 #) [facility] HospitalHhwlzekMRDAGBIWKK3995-78-66 05:10:00 Test Item Value Reference Range Interpretation Comments Lymphocytes # (test code = Lymphocytes 0.4 1.0-5.5 #) [place] 944591-08-09 05:10:00 Test Item Value Reference Range Interpretation Comments Monocytes # (test code 0.2 See_Comment [Aut omated message] The = Monocytes #) system which generated this result tra nsmitted reference range : <=0.8. The reference r leo was not used to int erpret this result as normal/abnormal . [facility] HospitalFhkmdvkQWHPHWBYJW4973-77-10 05:10:00 Test Item Value Reference Range Interpretation Comments Eosinophils # (test code 0.1 See_Comment [A utomated message] The = Eosinophils #) system wh h generated this result tra nsmitted reference range : <=0.5. The reference r leo was not used to int erpret this result as normal/abnormal . [facility] HospitalATHYROID DBVPWLB7368-64-26 05:10:00 Test Item Value Reference Range Interpretation Comments Ca Ion WB (test code = Ca Ion WB) 1.10 1.05-1.25 [facility] HospitalATHYROID AEGSVYY3635-05-00 05:10:00 Test Item Value Reference Range Interpretation Comments Ca Norm WB (test code = Ca Norm WB) 1.06 1.05-1.25 [facility]2021-08-09 05:10:00 Test Item Value Reference Range Interpretation Comments Glucose Lvl (test code = Glucose Lvl) 69 70-99 [facility]2021-08-09 05:10:00 Test Item Value Reference Range Interpretation Comments BUN (test code = BUN) 29 7-22 [facility]2021-08-09 05:10:00 Test Item Value Reference Range Interpretation Comments Creatinine Lvl (test code = Creatinine 5.14 0.50-1.40 Lvl) [facility]2021-08-09 05:10:00 Test Item Value Reference Range Interpretation Comments Sodium Lvl (test code = Sodium Lvl) 134 135-145 [facility]2021-08-09 05:10:00 Test Item Value Reference Range Interpretation Comments Potassium Lvl (test code = Potassium 5.1 3.5-5.1 Lvl) [facility]2021-08-09 05:10:00 Test Item Value Reference Range Interpretation Comments Chloride Lvl (test code = Chloride Lvl) 98 95-109 [facility]2021-08-09 05:10:00 Test Item Value Reference Range Interpretation Comments CO2 (test code = CO2) 29 24-32 [facility]2021-08-09 05:10:00 Test Item Value Reference Range Interpretation Comments Calcium Lvl (test code = Calcium Lvl) 7.6 8.5-10.5 [facility]2021-08-09 05:10:00 Test Item Value Reference Range Interpretation Comments AGAP (test code = AGAP) 12.1 10.0-20.0 [place] 153771-08-09 05:10:00 Test Item Value Reference Range Interpretation Comments eGFR (test code = eGFR) 10 [facility]2021-08-09 05:10:00 Test Item Value Reference Range Interpretation Comments Magnesium Lvl (test code = Magnesium 2.3 1.8-2.4 Lvl) [facility]2021-08-09 05:10:00 Test Item Value Reference Range Interpretation Comments Phosphorus (test code = Phosphorus) 5.0 2.5-4.5 [place] 944591-08-09 05:10:00 Test Item Value Reference Range Interpretation Comments WBC (test code = WBC) 2.7 3.7-10.4 [place] 944591-08-09 05:10:00 Test Item Value Reference Range Interpretation Comments RBC (test code = RBC) 2.80 4.20-5.40 [place] 944591-08-09 05:10:00 Test Item Value Reference Range Interpretation Comments Hgb (test code = Hgb) 8.5 12.0-16.0 [place] 944591-08-09 05:10:00 Test Item Value Reference Range Interpretation Comments Hct (test code = Hct) 25.7 36.0-48.0 [place] 944591-08-09 05:10:00 Test Item Value Reference Range Interpretation Comments MCV (test code = MCV) 91.7 80.0-98.0 [place] 944591-08-09 05:10:00 Test Item Value Reference Range Interpretation Comments MCH (test code = MCH) 30.4 pg 27.0-31.0 [facility] HospitalBzfysnvQVUAOSCAZG2111-65-04 05:10:00 Test Item Value Reference Range Interpretation Comments MCHC (test code = MCHC) 33.1 32.0-36.0 [place] 944591-08-09 05:10:00 Test Item Value Reference Range Interpretation Comments RDW (test code = RDW) 19.2 11.5-14.5 [place] 944591-08-09 05:10:00 Test Item Value Reference Range Interpretation Comments Platelet (test code = Platelet) 72 133-450 [facility] HospitalUyyljpwPTZTBVRVVP0069-12-74 05:10:00 Test Item Value Reference Range Interpretation Comments MPV (test code = MPV) 9.9 7.4-10.4 [facility] HospitalUxrifmfPMOQGSGVLR8039-42-13 05:10:00 Test Item Value Reference Range Interpretation Comments Segs (test code = Segs) 72.6 45.0-75.0 [facility] HospitalPefzclgVWQUXRIWKJ9599-94-63 05:10:00 Test Item Value Reference Range Interpretation Comments Lymphocytes (test code = Lymphocytes) 15.9 20.0-40.0 [place] 944591-08-09 05:10:00 Test Item Value Reference Range Interpretation Comments Monocytes (test code = Monocytes) 7.3 2.0-12.0 [facility] HospitalDnxlbglSXEKHKMZLQ6757-54-35 05:10:00 Test Item Value Reference Range Interpretation Comments Eosinophils (test code = 3.4 See_Comment [A utomated message] The Eosinophils) system which ge nerated this result tra nsmitted reference range : <=4.0. The reference r leo was not used to int erpret this result as normal/abnormal . [place] 944591-08-09 05:10:00 Test Item Value Reference Range Interpretation Comments Basophils (test code = 0.8 See_Comment [Aut omated message] The Basophils) system which ge nerated this result tra nsmitted reference range : <=1.0. The reference r leo was not used to int erpret this result as normal/abnormal . [facility] HospitalGniyfzdDNICIRSRFA1143-99-55 05:10:00 Test Item Value Reference Range Interpretation Comments Neutrophils # (test code = Neutrophils 1.9 1.5-8.1 #) [facility] HospitalMheysqnSDPCGPDITE0579-98-83 05:10:00 Test Item Value Reference Range Interpretation Comments Lymphocytes # (test code = Lymphocytes 0.4 1.0-5.5 #) [place] 944591-08-09 05:10:00 Test Item Value Reference Range Interpretation Comments Monocytes # (test code 0.2 See_Comment [Aut omated message] The = Monocytes #) system which generated this result tra nsmitted reference range : <=0.8. The reference r leo was not used to int erpret this result as normal/abnormal . [facility] HospitalLldlsdpSHEQBYJZQD8422-13-42 05:10:00 Test Item Value Reference Range Interpretation Comments Eosinophils # (test code 0.1 See_Comment [A utomated message] The = Eosinophils #) system wh h generated this result tra nsmitted reference range : <=0.5. The reference r leo was not used to int erpret this result as normal/abnormal . [facility] HospitalATHYROID FZQBPDY3498-14-05 05:10:00 Test Item Value Reference Range Interpretation Comments Ca Ion WB (test code = Ca Ion WB) 1.10 1.05-1.25 [facility] HospitalATHYROID FGHHVER5004-83-60 05:10:00 Test Item Value Reference Range Interpretation Comments Ca Norm WB (test code = Ca Norm WB) 1.06 1.05-1.25 [facility]2021-08-09 05:10:00 Test Item Value Reference Range Interpretation Comments Glucose Lvl (test code = Glucose Lvl) 69 70-99 [facility]2021-08-09 05:10:00 Test Item Value Reference Range Interpretation Comments BUN (test code = BUN) 29 7-22 [facility]2021-08-09 05:10:00 Test Item Value Reference Range Interpretation Comments Creatinine Lvl (test code = Creatinine 5.14 0.50-1.40 Lvl) [facility]2021-08-09 05:10:00 Test Item Value Reference Range Interpretation Comments Sodium Lvl (test code = Sodium Lvl) 134 135-145 [facility]2021-08-09 05:10:00 Test Item Value Reference Range Interpretation Comments Potassium Lvl (test code = Potassium 5.1 3.5-5.1 Lvl) [facility]2021-08-09 05:10:00 Test Item Value Reference Range Interpretation Comments Chloride Lvl (test code = Chloride Lvl) 98 95-109 [facility]2021-08-09 05:10:00 Test Item Value Reference Range Interpretation Comments CO2 (test code = CO2) 29 24-32 [facility]2021-08-09 05:10:00 Test Item Value Reference Range Interpretation Comments Calcium Lvl (test code = Calcium Lvl) 7.6 8.5-10.5 [facility]2021-08-09 05:10:00 Test Item Value Reference Range Interpretation Comments AGAP (test code = AGAP) 12.1 10.0-20.0 [place] 153771-08-09 05:10:00 Test Item Value Reference Range Interpretation Comments eGFR (test code = eGFR) 10 [facility]2021-08-09 05:10:00 Test Item Value Reference Range Interpretation Comments Magnesium Lvl (test code = Magnesium 2.3 1.8-2.4 Lvl) [facility]2021-08-09 05:10:00 Test Item Value Reference Range Interpretation Comments Phosphorus (test code = Phosphorus) 5.0 2.5-4.5 [place] 944591-08-09 05:10:00 Test Item Value Reference Range Interpretation Comments WBC (test code = WBC) 2.7 3.7-10.4 [place] 944591-08-09 05:10:00 Test Item Value Reference Range Interpretation Comments RBC (test code = RBC) 2.80 4.20-5.40 [place] 944591-08-09 05:10:00 Test Item Value Reference Range Interpretation Comments Hgb (test code = Hgb) 8.5 12.0-16.0 [place] 944591-08-09 05:10:00 Test Item Value Reference Range Interpretation Comments Hct (test code = Hct) 25.7 36.0-48.0 [place] 944591-08-09 05:10:00 Test Item Value Reference Range Interpretation Comments MCV (test code = MCV) 91.7 80.0-98.0 [place] 944591-08-09 05:10:00 Test Item Value Reference Range Interpretation Comments MCH (test code = MCH) 30.4 pg 27.0-31.0 [facility] HospitalEwpygylEODZXAELMU3139-55-67 05:10:00 Test Item Value Reference Range Interpretation Comments MCHC (test code = MCHC) 33.1 32.0-36.0 [place] 944591-08-09 05:10:00 Test Item Value Reference Range Interpretation Comments RDW (test code = RDW) 19.2 11.5-14.5 [place] 944591-08-09 05:10:00 Test Item Value Reference Range Interpretation Comments Platelet (test code = Platelet) 72 133-450 [facility] HospitalQosekajGTYHEIUPIW5468-56-47 05:10:00 Test Item Value Reference Range Interpretation Comments MPV (test code = MPV) 9.9 7.4-10.4 [facility] HospitalMrlfvsnRIPIUTSLAT9615-52-51 05:10:00 Test Item Value Reference Range Interpretation Comments Segs (test code = Segs) 72.6 45.0-75.0 [facility] HospitalMyzrboxTZVROWLMZM9075-86-15 05:10:00 Test Item Value Reference Range Interpretation Comments Lymphocytes (test code = Lymphocytes) 15.9 20.0-40.0 [place] 944591-08-09 05:10:00 Test Item Value Reference Range Interpretation Comments Monocytes (test code = Monocytes) 7.3 2.0-12.0 [facility] HospitalEzulfnaGWPCNHRXCG6384-26-21 05:10:00 Test Item Value Reference Range Interpretation Comments Eosinophils (test code = 3.4 See_Comment [A utomated message] The Eosinophils) system which ge nerated this result tra nsmitted reference range : <=4.0. The reference r leo was not used to int erpret this result as normal/abnormal . [place] 944591-08-09 05:10:00 Test Item Value Reference Range Interpretation Comments Basophils (test code = 0.8 See_Comment [Aut omated message] The Basophils) system which ge nerated this result tra nsmitted reference range : <=1.0. The reference r leo was not used to int erpret this result as normal/abnormal . [facility] HospitalPyedfgcDBKCYQBBTX8971-39-61 05:10:00 Test Item Value Reference Range Interpretation Comments Neutrophils # (test code = Neutrophils 1.9 1.5-8.1 #) [facility] HospitalBpqngrxMZJZIAZCSN7788-46-06 05:10:00 Test Item Value Reference Range Interpretation Comments Lymphocytes # (test code = Lymphocytes 0.4 1.0-5.5 #) [place] 944591-08-09 05:10:00 Test Item Value Reference Range Interpretation Comments Monocytes # (test code 0.2 See_Comment [Aut omated message] The = Monocytes #) system which generated this result tra nsmitted reference range : <=0.8. The reference r leo was not used to int erpret this result as normal/abnormal . [facility] HospitalCvvpubqGRVMMAQQYX6394-07-04 05:10:00 Test Item Value Reference Range Interpretation Comments Eosinophils # (test code 0.1 See_Comment [A utomated message] The = Eosinophils #) system wh h generated this result tra nsmitted reference range : <=0.5. The reference r leo was not used to int erpret this result as normal/abnormal . [facility]2021-08-09 05:10:00 Test Item Value Reference Range Interpretation Comments Ca Ion WB (test code = Ca Ion WB) 1.10 1.05-1.25 [facility]2021-08-09 05:10:00 Test Item Value Reference Range Interpretation Comments Ca Norm WB (test code = Ca Norm WB) 1.06 1.05-1.25 [facility]2021-08-08 18:36:00 Test Item Value Reference Range Interpretation Comments C difficile DNA (test Negative (01/26/21 1:36 code = C difficile DNA) PM) [facility]2021-08-08 18:36:00 Test Item Value Reference Range Interpretation Comments C difficile DNA (test Negative (01/26/21 1:36 code = C difficile DNA) PM) [facility]2021-08-08 18:36:00 Test Item Value Reference Range Interpretation Comments C difficile DNA (test Negative (01/26/21 1:36 code = C difficile DNA) PM) [facility]2021-08-08 18:36:00 Test Item Value Reference Range Interpretation Comments C difficile DNA (test Negative (01/26/21 1:36 code = C difficile DNA) PM) [facility]2021-08-08 07:33:00 Test Item Value Reference Range Interpretation Comments Ca Ion WB (test code = Ca Ion WB) 1.12 1.05-1.25 [facility]ann[facility]ENTERATHYREGENC[facility] FLORENCEVSVEMOD4449-82-52 07:33:00 Test Item Value Reference Range Interpretation Comments Ca Norm WB (test code = Ca Norm WB) 1.07 1.05-1.25 [facility] CenterannPARATHYROID APKYSZV8224-64-72 07:33:00 Test Item Value Reference Range Interpretation Comments Ca Ion WB (test code = Ca Ion WB) 1.12 1.05-1.25 [facility]annYAV[facility] CENTERATHYROID ENJVXXB5597-31-16 07:33:00 Test Item Value Reference Range Interpretation Comments Ca Norm WB (test code = Ca Norm WB) 1.07 1.05-1.25 [facility]annPARATHYANNET[place] [address]335CAHAWUZ7045-91-25 07:33:00 Test Item Value Reference Range Interpretation Comments Ca Ion WB (test code = Ca Ion WB) 1.12 1.05-1.25 [place] 617631-08-08 07:33:00 Test Item Value Reference Range Interpretation Comments Ca Norm WB (test code = Ca Norm WB) 1.07 1.05-1.25 [place] 617631-08-08 07:33:00 Test Item Value Reference Range Interpretation Comments Ca Ion WB (test code = Ca Ion WB) 1.12 1.05-1.25 [place] [address]-08-08 07:33:00 Test Item Value Reference Range Interpretation Comments Ca Norm WB (test code = Ca Norm WB) 1.07 1.05-1.25 [place] 153771-08-08 07:30:00 Test Item Value Reference Range Interpretation Comments Glucose Lvl (test code = Glucose Lvl) 65 70-99 [place] 153771-08-08 07:30:00 Test Item Value Reference Range Interpretation Comments BUN (test code = BUN) 21 7-22 [place] 153771-08-08 07:30:00 Test Item Value Reference Range Interpretation Comments Creatinine Lvl (test code = Creatinine 4.18 0.50-1.40 Lvl) [place] 153771-08-08 07:30:00 Test Item Value Reference Range Interpretation Comments Sodium Lvl (test code = Sodium Lvl) 136 135-145 [place] 153771-08-08 07:30:00 Test Item Value Reference Range Interpretation Comments Potassium Lvl (test code = Potassium 4.5 3.5-5.1 Lvl) [place] 153771-08-08 07:30:00 Test Item Value Reference Range Interpretation Comments Chloride Lvl (test code = Chloride Lvl) 99 95-109 [place] 153771-08-08 07:30:00 Test Item Value Reference Range Interpretation Comments CO2 (test code = CO2) 31 24-32 [place] 153771-08-08 07:30:00 Test Item Value Reference Range Interpretation Comments AGAP (test code = AGAP) 10.5 10.0-20.0 [place] 153771-08-08 07:30:00 Test Item Value Reference Range Interpretation Comments Calcium Lvl (test code = Calcium Lvl) 7.9 8.5-10.5 [place] 153771-08-08 07:30:00 Test Item Value Reference Range Interpretation Comments eGFR (test code = eGFR) 13 [place] 153771-08-08 07:30:00 Test Item Value Reference Range Interpretation Comments Magnesium Lvl (test code = Magnesium 2.2 1.8-2.4 Lvl) [place] 153771-08-08 07:30:00 Test Item Value Reference Range Interpretation Comments Phosphorus (test code = Phosphorus) 4.4 2.5-4.5 [place] 944591-08-08 07:30:00 Test Item Value Reference Range Interpretation Comments WBC (test code = WBC) 2.3 3.7-10.4 [place] 944591-08-08 07:30:00 Test Item Value Reference Range Interpretation Comments RBC (test code = RBC) 2.88 4.20-5.40 [place] 944591-08-08 07:30:00 Test Item Value Reference Range Interpretation Comments Hgb (test code = Hgb) 8.6 12.0-16.0 [place] 944591-08-08 07:30:00 Test Item Value Reference Range Interpretation Comments Hct (test code = Hct) 26.6 36.0-48.0 [place] 944591-08-08 07:30:00 Test Item Value Reference Range Interpretation Comments MCV (test code = MCV) 92.2 80.0-98.0 [place] 944591-08-08 07:30:00 Test Item Value Reference Range Interpretation Comments MCH (test code = MCH) 29.8 pg 27.0-31.0 [place] 944591-08-08 07:30:00 Test Item Value Reference Range Interpretation Comments MCHC (test code = MCHC) 32.4 32.0-36.0 [place] 944591-08-08 07:30:00 Test Item Value Reference Range Interpretation Comments RDW (test code = RDW) 19.7 11.5-14.5 [place] 944591-08-08 07:30:00 Test Item Value Reference Range Interpretation Comments Platelet (test code = Platelet) 83 133-450 [facility] HospitalThdhbakQCQWXMSWZF0925-98-25 07:30:00 Test Item Value Reference Range Interpretation Comments MPV (test code = MPV) 10.2 7.4-10.4 [facility] HospitalNumyqegBNIMUHDTDY7290-14-00 07:30:00 Test Item Value Reference Range Interpretation Comments Segs (test code = Segs) 64.0 45.0-75.0 [facility] HospitalOteohuyAQKVOOHOLX2792-95-14 07:30:00 Test Item Value Reference Range Interpretation Comments Lymphocytes (test code = Lymphocytes) 24.1 20.0-40.0 [facility] HospitalPeskpybLTRYRAZLCV4880-55-62 07:30:00 Test Item Value Reference Range Interpretation Comments Monocytes (test code = Monocytes) 7.0 2.0-12.0 [facility] HospitalRvctxpzXODKJDJKAJ8548-07-09 07:30:00 Test Item Value Reference Range Interpretation Comments Eosinophils (test code = 3.7 See_Comment [A utomated message] The Eosinophils) system which ge nerated this result tra nsmitted reference range : <=4.0. The reference r loe was not used to int erpret this result as normal/abnormal . [facility] HospitalSwseheoTNSEOQMNAY9098-52-82 07:30:00 Test Item Value Reference Range Interpretation Comments Basophils (test code = 1.2 See_Comment [Aut omated message] The Basophils) system which ge nerated this result tra nsmitted reference range : <=1.0. The reference r leo was not used to int erpret this result as normal/abnormal . [facility] HospitalEkloxttMCFMWQLBVC3879-35-10 07:30:00 Test Item Value Reference Range Interpretation Comments Neutrophils # (test code = Neutrophils 1.5 1.5-8.1 #) [facility] HospitalStuiwqiJDXVLTNQGW2045-45-74 07:30:00 Test Item Value Reference Range Interpretation Comments Lymphocytes # (test code = Lymphocytes 0.6 1.0-5.5 #) [facility] HospitalObedlfgOAAXPERYHS6202-27-94 07:30:00 Test Item Value Reference Range Interpretation Comments Monocytes # (test code 0.2 See_Comment [Aut omated message] The = Monocytes #) system which generated this result tra nsmitted reference range : <=0.8. The reference r leo was not used to int erpret this result as normal/abnormal . [place] 944591-08-08 07:30:00 Test Item Value Reference Range Interpretation Comments Eosinophils # (test code 0.1 See_Comment [A utomated message] The = Eosinophils #) system whic h generated this result tra nsmitted reference range : <=0.5. The reference r leo was not used to int erpret this result as normal/abnormal . [place] [address]-08-08 07:30:00 Test Item Value Reference Range Interpretation Comments Glucose Lvl (test code = Glucose Lvl) 65 70-99 [place] 153771-08-08 07:30:00 Test Item Value Reference Range Interpretation Comments BUN (test code = BUN) 21 7-22 [place] 153771-08-08 07:30:00 Test Item Value Reference Range Interpretation Comments Creatinine Lvl (test code = Creatinine 4.18 0.50-1.40 Lvl) [place] 153771-08-08 07:30:00 Test Item Value Reference Range Interpretation Comments Sodium Lvl (test code = Sodium Lvl) 136 135-145 [place] 153771-08-08 07:30:00 Test Item Value Reference Range Interpretation Comments Potassium Lvl (test code = Potassium 4.5 3.5-5.1 Lvl) [place] 153771-08-08 07:30:00 Test Item Value Reference Range Interpretation Comments Chloride Lvl (test code = Chloride Lvl) 99 95-109 [place] 153771-08-08 07:30:00 Test Item Value Reference Range Interpretation Comments CO2 (test code = CO2) 31 24-32 [place] 153771-08-08 07:30:00 Test Item Value Reference Range Interpretation Comments AGAP (test code = AGAP) 10.5 10.0-20.0 [place] 153771-08-08 07:30:00 Test Item Value Reference Range Interpretation Comments Calcium Lvl (test code = Calcium Lvl) 7.9 8.5-10.5 [place] 153771-08-08 07:30:00 Test Item Value Reference Range Interpretation Comments eGFR (test code = eGFR) 13 [place] 153771-08-08 07:30:00 Test Item Value Reference Range Interpretation Comments Magnesium Lvl (test code = Magnesium 2.2 1.8-2.4 Lvl) [facility]2021-08-08 07:30:00 Test Item Value Reference Range Interpretation Comments Phosphorus (test code = Phosphorus) 4.4 2.5-4.5 [facility]FbrfvkeQWRVIEIUNC0979-61-64 07:30:00 Test Item Value Reference Range Interpretation Comments WBC (test code = WBC) 2.3 3.7-10.4 [facility] HospitalMlqyjuiCBQUQZGTQG0079-85-60 07:30:00 Test Item Value Reference Range Interpretation Comments RBC (test code = RBC) 2.88 4.20-5.40 [facility] HospitalAhmkjliNPSNDHMZZF8624-35-89 07:30:00 Test Item Value Reference Range Interpretation Comments Hgb (test code = Hgb) 8.6 12.0-16.0 [facility] HospitalEwkzkjxFQCDCARVNY5558-63-78 07:30:00 Test Item Value Reference Range Interpretation Comments Hct (test code = Hct) 26.6 36.0-48.0 [facility] HospitalNgdfjzfDEQKWWJQLC5274-69-34 07:30:00 Test Item Value Reference Range Interpretation Comments MCV (test code = MCV) 92.2 80.0-98.0 [facility] HospitalHnzkwpmGTIJJIFUKJ0136-48-71 07:30:00 Test Item Value Reference Range Interpretation Comments MCH (test code = MCH) 29.8 pg 27.0-31.0 [facility] TexasHjhejcvUQEQTJUFNR4230-63-77 07:30:00 Test Item Value Reference Range Interpretation Comments MCHC (test code = MCHC) 32.4 32.0-36.0 [facility] HospitalXjkkbqyHPIWPHQYRB5490-31-20 07:30:00 Test Item Value Reference Range Interpretation Comments RDW (test code = RDW) 19.7 11.5-14.5 [facility] HospitalFomrjdxPXSMVFYWVD1530-69-10 07:30:00 Test Item Value Reference Range Interpretation Comments Platelet (test code = Platelet) 83 133-450 [facility] HospitalUdvkwkrLSKKXWCBUZ0796-02-85 07:30:00 Test Item Value Reference Range Interpretation Comments MPV (test code = MPV) 10.2 7.4-10.4 [facility] HospitalKubwfgkLQMRWYSXAB3183-09-24 07:30:00 Test Item Value Reference Range Interpretation Comments Segs (test code = Segs) 64.0 45.0-75.0 [place] [address]-08-08 07:30:00 Test Item Value Reference Range Interpretation Comments Lymphocytes (test code = Lymphocytes) 24.1 20.0-40.0 [place] 944591-08-08 07:30:00 Test Item Value Reference Range Interpretation Comments Monocytes (test code = Monocytes) 7.0 2.0-12.0 [facility] HospitalHvxsbdlAWBGBCWUGS6165-21-00 07:30:00 Test Item Value Reference Range Interpretation Comments Eosinophils (test code = 3.7 See_Comment [A utomated message] The Eosinophils) system which ge nerated this result tra nsmitted reference range : <=4.0. The reference r leo was not used to int erpret this result as normal/abnormal . [place] 944591-08-08 07:30:00 Test Item Value Reference Range Interpretation Comments Basophils (test code = 1.2 See_Comment [Aut omated message] The Basophils) system which ge nerated this result tra nsmitted reference range : <=1.0. The reference r leo was not used to int erpret this result as normal/abnormal . [facility] HospitalJoepuhrDGWVHEDUVS2142-25-90 07:30:00 Test Item Value Reference Range Interpretation Comments Neutrophils # (test code = Neutrophils 1.5 1.5-8.1 #) [facility] HospitalMazedfkWUAHCXISSZ4111-32-23 07:30:00 Test Item Value Reference Range Interpretation Comments Lymphocytes # (test code = Lymphocytes 0.6 1.0-5.5 #) [facility] HospitalMbbptzlMKLXPEBWTM8505-75-72 07:30:00 Test Item Value Reference Range Interpretation Comments Monocytes # (test code 0.2 See_Comment [Aut omated message] The = Monocytes #) system which generated this result tra nsmitted reference range : <=0.8. The reference r leo was not used to int erpret this result as normal/abnormal . [place] 944591-08-08 07:30:00 Test Item Value Reference Range Interpretation Comments Eosinophils # (test code 0.1 See_Comment [A utomated message] The = Eosinophils #) system whic h generated this result tra nsmitted reference range : <=0.5. The reference r leo was not used to int erpret this result as normal/abnormal . [facility]2021-08-08 07:30:00 Test Item Value Reference Range Interpretation Comments Glucose Lvl (test code = Glucose Lvl) 65 70-99 [place] 153771-08-08 07:30:00 Test Item Value Reference Range Interpretation Comments BUN (test code = BUN) 21 7-22 [place] 153771-08-08 07:30:00 Test Item Value Reference Range Interpretation Comments Creatinine Lvl (test code = Creatinine 4.18 0.50-1.40 Lvl) [place] 153771-08-08 07:30:00 Test Item Value Reference Range Interpretation Comments Sodium Lvl (test code = Sodium Lvl) 136 135-145 [facility]2021-08-08 07:30:00 Test Item Value Reference Range Interpretation Comments Potassium Lvl (test code = Potassium 4.5 3.5-5.1 Lvl) [place] 153771-08-08 07:30:00 Test Item Value Reference Range Interpretation Comments Chloride Lvl (test code = Chloride Lvl) 99 95-109 [place] 153771-08-08 07:30:00 Test Item Value Reference Range Interpretation Comments CO2 (test code = CO2) 31 24-32 [facility]2021-08-08 07:30:00 Test Item Value Reference Range Interpretation Comments AGAP (test code = AGAP) 10.5 10.0-20.0 [facility]2021-08-08 07:30:00 Test Item Value Reference Range Interpretation Comments Calcium Lvl (test code = Calcium Lvl) 7.9 8.5-10.5 [facility]2021-08-08 07:30:00 Test Item Value Reference Range Interpretation Comments eGFR (test code = eGFR) 13 [place] 153771-08-08 07:30:00 Test Item Value Reference Range Interpretation Comments Magnesium Lvl (test code = Magnesium 2.2 1.8-2.4 Lvl) [place] 153771-08-08 07:30:00 Test Item Value Reference Range Interpretation Comments Phosphorus (test code = Phosphorus) 4.4 2.5-4.5 [facility]YsnapppIBSJBETYMY6929-58-98 07:30:00 Test Item Value Reference Range Interpretation Comments WBC (test code = WBC) 2.3 3.7-10.4 [place] 944591-08-08 07:30:00 Test Item Value Reference Range Interpretation Comments RBC (test code = RBC) 2.88 4.20-5.40 [place] 944591-08-08 07:30:00 Test Item Value Reference Range Interpretation Comments Hgb (test code = Hgb) 8.6 12.0-16.0 [place] 944591-08-08 07:30:00 Test Item Value Reference Range Interpretation Comments Hct (test code = Hct) 26.6 36.0-48.0 [facility] HospitalBajgxssECBQAOYTWU2629-06-95 07:30:00 Test Item Value Reference Range Interpretation Comments MCV (test code = MCV) 92.2 80.0-98.0 [place] 944591-08-08 07:30:00 Test Item Value Reference Range Interpretation Comments MCH (test code = MCH) 29.8 pg 27.0-31.0 [facility] HospitalOurljhiCABJQOJCLN5084-02-14 07:30:00 Test Item Value Reference Range Interpretation Comments MCHC (test code = MCHC) 32.4 32.0-36.0 [facility] HospitalZsasrmrOBHOLQVXTS8219-17-88 07:30:00 Test Item Value Reference Range Interpretation Comments RDW (test code = RDW) 19.7 11.5-14.5 [facility] HospitalUdbxeinTXHACNITVV1947-20-36 07:30:00 Test Item Value Reference Range Interpretation Comments Platelet (test code = Platelet) 83 133-450 [facility] HospitalPfrmbsuIEHYBKGDFA8705-70-76 07:30:00 Test Item Value Reference Range Interpretation Comments MPV (test code = MPV) 10.2 7.4-10.4 [facility] HospitalFmcoggmZWMKLWTFJJ5821-84-40 07:30:00 Test Item Value Reference Range Interpretation Comments Segs (test code = Segs) 64.0 45.0-75.0 [facility] HospitalKdsdcedLILLTWOHMN0857-96-27 07:30:00 Test Item Value Reference Range Interpretation Comments Lymphocytes (test code = Lymphocytes) 24.1 20.0-40.0 [place] 944591-08-08 07:30:00 Test Item Value Reference Range Interpretation Comments Monocytes (test code = Monocytes) 7.0 2.0-12.0 [place] 944591-08-08 07:30:00 Test Item Value Reference Range Interpretation Comments Eosinophils (test code = 3.7 See_Comment [A utomated message] The Eosinophils) system which ge nerated this result tra nsmitted reference range : <=4.0. The reference r leo was not used to int erpret this result as normal/abnormal . [place] 944591-08-08 07:30:00 Test Item Value Reference Range Interpretation Comments Basophils (test code = 1.2 See_Comment [Aut omated message] The Basophils) system which ge nerated this result tra nsmitted reference range : <=1.0. The reference r leo was not used to int erpret this result as normal/abnormal . [place] 944591-08-08 07:30:00 Test Item Value Reference Range Interpretation Comments Neutrophils # (test code = Neutrophils 1.5 1.5-8.1 #) [place] 944591-08-08 07:30:00 Test Item Value Reference Range Interpretation Comments Lymphocytes # (test code = Lymphocytes 0.6 1.0-5.5 #) [place] 944591-08-08 07:30:00 Test Item Value Reference Range Interpretation Comments Monocytes # (test code 0.2 See_Comment [Aut omated message] The = Monocytes #) system which generated this result tra nsmitted reference range : <=0.8. The reference r leo was not used to int erpret this result as normal/abnormal . [place] 944591-08-08 07:30:00 Test Item Value Reference Range Interpretation Comments Eosinophils # (test code 0.1 See_Comment [A utomated message] The = Eosinophils #) system whic h generated this result tra nsmitted reference range : <=0.5. The reference r leo was not used to int erpret this result as normal/abnormal . [facility] DIVZA4783-10-13 07:30:00 Test Item Value Reference Range Interpretation Comments Glucose Lvl (test code = Glucose Lvl) 65 70-99 [place] 153771-08-08 07:30:00 Test Item Value Reference Range Interpretation Comments BUN (test code = BUN) 21 7-22 [place] 153771-08-08 07:30:00 Test Item Value Reference Range Interpretation Comments Creatinine Lvl (test code = Creatinine 4.18 0.50-1.40 Lvl) [place] 153771-08-08 07:30:00 Test Item Value Reference Range Interpretation Comments Sodium Lvl (test code = Sodium Lvl) 136 135-145 [place] 153771-08-08 07:30:00 Test Item Value Reference Range Interpretation Comments Potassium Lvl (test code = Potassium 4.5 3.5-5.1 Lvl) [place] 153771-08-08 07:30:00 Test Item Value Reference Range Interpretation Comments Chloride Lvl (test code = Chloride Lvl) 99 95-109 [place] 153771-08-08 07:30:00 Test Item Value Reference Range Interpretation Comments CO2 (test code = CO2) 31 24-32 [place] 153771-08-08 07:30:00 Test Item Value Reference Range Interpretation Comments AGAP (test code = AGAP) 10.5 10.0-20.0 [place] 153771-08-08 07:30:00 Test Item Value Reference Range Interpretation Comments Calcium Lvl (test code = Calcium Lvl) 7.9 8.5-10.5 [place] 153771-08-08 07:30:00 Test Item Value Reference Range Interpretation Comments eGFR (test code = eGFR) 13 [place] 153771-08-08 07:30:00 Test Item Value Reference Range Interpretation Comments Magnesium Lvl (test code = Magnesium 2.2 1.8-2.4 Lvl) [place] 153771-08-08 07:30:00 Test Item Value Reference Range Interpretation Comments Phosphorus (test code = Phosphorus) 4.4 2.5-4.5 [place] 944591-08-08 07:30:00 Test Item Value Reference Range Interpretation Comments WBC (test code = WBC) 2.3 3.7-10.4 [place] 944591-08-08 07:30:00 Test Item Value Reference Range Interpretation Comments RBC (test code = RBC) 2.88 4.20-5.40 [place] 944591-08-08 07:30:00 Test Item Value Reference Range Interpretation Comments Hgb (test code = Hgb) 8.6 12.0-16.0 [place] 944591-08-08 07:30:00 Test Item Value Reference Range Interpretation Comments Hct (test code = Hct) 26.6 36.0-48.0 [facility] HospitalFublxehFDFRUTTZBA7378-49-89 07:30:00 Test Item Value Reference Range Interpretation Comments MCV (test code = MCV) 92.2 80.0-98.0 [facility] HospitalGwxomcvTBKVYXOENJ4934-88-57 07:30:00 Test Item Value Reference Range Interpretation Comments MCH (test code = MCH) 29.8 pg 27.0-31.0 [facility] HospitalUrcoyukAHFLQXMEEQ7291-22-56 07:30:00 Test Item Value Reference Range Interpretation Comments MCHC (test code = MCHC) 32.4 32.0-36.0 [facility] HospitalZatdfzoUBYTRNIAET2754-20-54 07:30:00 Test Item Value Reference Range Interpretation Comments RDW (test code = RDW) 19.7 11.5-14.5 [facility] HospitalJsfjlrkWVCXTLRJIH1662-09-37 07:30:00 Test Item Value Reference Range Interpretation Comments Platelet (test code = Platelet) 83 133-450 [facility] HospitalMwebcgpRZQGESCVWK0744-83-81 07:30:00 Test Item Value Reference Range Interpretation Comments MPV (test code = MPV) 10.2 7.4-10.4 [facility] HospitalVaskyirOFXKUETDZB2134-82-97 07:30:00 Test Item Value Reference Range Interpretation Comments Segs (test code = Segs) 64.0 45.0-75.0 [facility] HospitalXqfgrolVGDBAUKNDW5435-27-00 07:30:00 Test Item Value Reference Range Interpretation Comments Lymphocytes (test code = Lymphocytes) 24.1 20.0-40.0 [facility] HospitalQlmekphSOHGJQMZNF2210-71-94 07:30:00 Test Item Value Reference Range Interpretation Comments Monocytes (test code = Monocytes) 7.0 2.0-12.0 [facility] HospitalPnxigxmUJDCIZTMEP7997-77-16 07:30:00 Test Item Value Reference Range Interpretation Comments Eosinophils (test code = 3.7 See_Comment [A utomated message] The Eosinophils) system which ge nerated this result tra nsmitted reference range : <=4.0. The reference r leo was not used to int erpret this result as normal/abnormal . [facility] HospitalKtlsdwrBNPTZSLSIF3375-18-80 07:30:00 Test Item Value Reference Range Interpretation Comments Basophils (test code = 1.2 See_Comment [Aut omated message] The Basophils) system which ge nerated this result tra nsmitted reference range : <=1.0. The reference r leo was not used to int erpret this result as normal/abnormal . [place] [address]-08-08 07:30:00 Test Item Value Reference Range Interpretation Comments Neutrophils # (test code = Neutrophils 1.5 1.5-8.1 #) [place] 944591-08-08 07:30:00 Test Item Value Reference Range Interpretation Comments Lymphocytes # (test code = Lymphocytes 0.6 1.0-5.5 #) [place] [address]-08-08 07:30:00 Test Item Value Reference Range Interpretation Comments Monocytes # (test code 0.2 See_Comment [Aut omated message] The = Monocytes #) system which generated this result tra nsmitted reference range : <=0.8. The reference r leo was not used to int erpret this result as normal/abnormal . [place] [address]-08-08 07:30:00 Test Item Value Reference Range Interpretation Comments Eosinophils # (test code 0.1 See_Comment [A utomated message] The = Eosinophils #) system whic h generated this result tra nsmitted reference range : <=0.5. The reference r leo was not used to int erpret this result as normal/abnormal . [place] 153771-08-07 09:32:00 Test Item Value Reference Range Interpretation Comments Glucose Lvl (test code = Glucose Lvl) 59 70-99 [place] 153771-08-07 09:32:00 Test Item Value Reference Range Interpretation Comments BUN (test code = BUN) 11 7-22 [place] [address]-08-07 09:32:00 Test Item Value Reference Range Interpretation Comments Creatinine Lvl (test code = Creatinine 2.75 0.50-1.40 Lvl) [place] 153771-08-07 09:32:00 Test Item Value Reference Range Interpretation Comments Sodium Lvl (test code = Sodium Lvl) 138 135-145 [place] 153771-08-07 09:32:00 Test Item Value Reference Range Interpretation Comments Potassium Lvl (test code = Potassium 4.1 3.5-5.1 Lvl) [place] 153771-08-07 09:32:00 Test Item Value Reference Range Interpretation Comments Chloride Lvl (test code = Chloride Lvl) 104 95-109 [place] 153771-08-07 09:32:00 Test Item Value Reference Range Interpretation Comments CO2 (test code = CO2) 29 24-32 [place] [address]-08-07 09:32:00 Test Item Value Reference Range Interpretation Comments Calcium Lvl (test code = Calcium Lvl) 8.3 8.5-10.5 [place] [address]-08-07 09:32:00 Test Item Value Reference Range Interpretation Comments AGAP (test code = AGAP) 9.1 10.0-20.0 [place] [address]-08-07 09:32:00 Test Item Value Reference Range Interpretation Comments eGFR (test code = eGFR) 21 [place] 153771-08-07 09:32:00 Test Item Value Reference Range Interpretation Comments Magnesium Lvl (test code = Magnesium 2.2 1.8-2.4 Lvl) [place] 153771-08-07 09:32:00 Test Item Value Reference Range Interpretation Comments Phosphorus (test code = Phosphorus) 3.9 2.5-4.5 [place] 944591-08-07 09:32:00 Test Item Value Reference Range Interpretation Comments WBC (test code = WBC) 2.3 3.7-10.4 [place] [address]-08-07 09:32:00 Test Item Value Reference Range Interpretation Comments RBC (test code = RBC) 2.78 4.20-5.40 [place] [address]-08-07 09:32:00 Test Item Value Reference Range Interpretation Comments Hgb (test code = Hgb) 8.4 12.0-16.0 [place] [address]-08-07 09:32:00 Test Item Value Reference Range Interpretation Comments Hct (test code = Hct) 25.2 36.0-48.0 [place] [address]-08-07 09:32:00 Test Item Value Reference Range Interpretation Comments MCV (test code = MCV) 90.5 80.0-98.0 [place] [address]-08-07 09:32:00 Test Item Value Reference Range Interpretation Comments MCH (test code = MCH) 30.4 pg 27.0-31.0 [place] [address]-08-07 09:32:00 Test Item Value Reference Range Interpretation Comments MCHC (test code = MCHC) 33.5 32.0-36.0 [place] 944591-08-07 09:32:00 Test Item Value Reference Range Interpretation Comments RDW (test code = RDW) 19.0 11.5-14.5 [place] 944591-08-07 09:32:00 Test Item Value Reference Range Interpretation Comments Platelet (test code = Platelet) 87 133-450 [place] 944591-08-07 09:32:00 Test Item Value Reference Range Interpretation Comments MPV (test code = MPV) 10.0 7.4-10.4 [place] 153771-08-07 09:32:00 Test Item Value Reference Range Interpretation Comments Glucose Lvl (test code = Glucose Lvl) 59 70-99 [place] 153771-08-07 09:32:00 Test Item Value Reference Range Interpretation Comments BUN (test code = BUN) 11 7-22 [place] 153771-08-07 09:32:00 Test Item Value Reference Range Interpretation Comments Creatinine Lvl (test code = Creatinine 2.75 0.50-1.40 Lvl) [place] 153771-08-07 09:32:00 Test Item Value Reference Range Interpretation Comments Sodium Lvl (test code = Sodium Lvl) 138 135-145 [place] 153771-08-07 09:32:00 Test Item Value Reference Range Interpretation Comments Potassium Lvl (test code = Potassium 4.1 3.5-5.1 Lvl) [place] 153771-08-07 09:32:00 Test Item Value Reference Range Interpretation Comments Chloride Lvl (test code = Chloride Lvl) 104 95-109 [place] 153771-08-07 09:32:00 Test Item Value Reference Range Interpretation Comments CO2 (test code = CO2) 29 24-32 [place] 153771-08-07 09:32:00 Test Item Value Reference Range Interpretation Comments Calcium Lvl (test code = Calcium Lvl) 8.3 8.5-10.5 [place] 153771-08-07 09:32:00 Test Item Value Reference Range Interpretation Comments AGAP (test code = AGAP) 9.1 10.0-20.0 [place] [address]-08-07 09:32:00 Test Item Value Reference Range Interpretation Comments eGFR (test code = eGFR) 21 [place] [address]-08-07 09:32:00 Test Item Value Reference Range Interpretation Comments Magnesium Lvl (test code = Magnesium 2.2 1.8-2.4 Lvl) [place] 153771-08-07 09:32:00 Test Item Value Reference Range Interpretation Comments Phosphorus (test code = Phosphorus) 3.9 2.5-4.5 [place] [address]-08-07 09:32:00 Test Item Value Reference Range Interpretation Comments WBC (test code = WBC) 2.3 3.7-10.4 [place] [address]-08-07 09:32:00 Test Item Value Reference Range Interpretation Comments RBC (test code = RBC) 2.78 4.20-5.40 [place] [address]-08-07 09:32:00 Test Item Value Reference Range Interpretation Comments Hgb (test code = Hgb) 8.4 12.0-16.0 [place] [address]-08-07 09:32:00 Test Item Value Reference Range Interpretation Comments Hct (test code = Hct) 25.2 36.0-48.0 [place] [address]-08-07 09:32:00 Test Item Value Reference Range Interpretation Comments MCV (test code = MCV) 90.5 80.0-98.0 [place] [address]-08-07 09:32:00 Test Item Value Reference Range Interpretation Comments MCH (test code = MCH) 30.4 pg 27.0-31.0 [place] [address]-08-07 09:32:00 Test Item Value Reference Range Interpretation Comments MCHC (test code = MCHC) 33.5 32.0-36.0 [place] 944591-08-07 09:32:00 Test Item Value Reference Range Interpretation Comments RDW (test code = RDW) 19.0 11.5-14.5 [place] 944591-08-07 09:32:00 Test Item Value Reference Range Interpretation Comments Platelet (test code = Platelet) 87 133-450 [facility]menqrxFLREZDLPYZ1923[facility]41-70 09:32:00 Test Item Value Reference Range Interpretation Comments MPV (test code = MPV) 10.0 7.4-10.4 [place] 153771-08-07 09:32:00 Test Item Value Reference Range Interpretation Comments Glucose Lvl (test code = Glucose Lvl) 59 70-99 [place] 153771-08-07 09:32:00 Test Item Value Reference Range Interpretation Comments BUN (test code = BUN) 11 7-22 [place] 153771-08-07 09:32:00 Test Item Value Reference Range Interpretation Comments Creatinine Lvl (test code = Creatinine 2.75 0.50-1.40 Lvl) [place] 153771-08-07 09:32:00 Test Item Value Reference Range Interpretation Comments Sodium Lvl (test code = Sodium Lvl) 138 135-145 [place] 153771-08-07 09:32:00 Test Item Value Reference Range Interpretation Comments Potassium Lvl (test code = Potassium 4.1 3.5-5.1 Lvl) [place] 153771-08-07 09:32:00 Test Item Value Reference Range Interpretation Comments Chloride Lvl (test code = Chloride Lvl) 104 95-109 [place] 153771-08-07 09:32:00 Test Item Value Reference Range Interpretation Comments CO2 (test code = CO2) 29 24-32 [place] 153771-08-07 09:32:00 Test Item Value Reference Range Interpretation Comments Calcium Lvl (test code = Calcium Lvl) 8.3 8.5-10.5 [place] 153771-08-07 09:32:00 Test Item Value Reference Range Interpretation Comments AGAP (test code = AGAP) 9.1 10.0-20.0 [place] 153771-08-07 09:32:00 Test Item Value Reference Range Interpretation Comments eGFR (test code = eGFR) 21 [place] 153771-08-07 09:32:00 Test Item Value Reference Range Interpretation Comments Magnesium Lvl (test code = Magnesium 2.2 1.8-2.4 Lvl) [place] 153771-08-07 09:32:00 Test Item Value Reference Range Interpretation Comments Phosphorus (test code = Phosphorus) 3.9 2.5-4.5 [place] 944591-08-07 09:32:00 Test Item Value Reference Range Interpretation Comments WBC (test code = WBC) 2.3 3.7-10.4 [place] 944591-08-07 09:32:00 Test Item Value Reference Range Interpretation Comments RBC (test code = RBC) 2.78 4.20-5.40 [place] 944591-08-07 09:32:00 Test Item Value Reference Range Interpretation Comments Hgb (test code = Hgb) 8.4 12.0-16.0 [place] 944591-08-07 09:32:00 Test Item Value Reference Range Interpretation Comments Hct (test code = Hct) 25.2 36.0-48.0 [place] 944591-08-07 09:32:00 Test Item Value Reference Range Interpretation Comments MCV (test code = MCV) 90.5 80.0-98.0 [place] 944591-08-07 09:32:00 Test Item Value Reference Range Interpretation Comments MCH (test code = MCH) 30.4 pg 27.0-31.0 [place] 944591-08-07 09:32:00 Test Item Value Reference Range Interpretation Comments MCHC (test code = MCHC) 33.5 32.0-36.0 [place] 944591-08-07 09:32:00 Test Item Value Reference Range Interpretation Comments RDW (test code = RDW) 19.0 11.5-14.5 [place] 944591-08-07 09:32:00 Test Item Value Reference Range Interpretation Comments Platelet (test code = Platelet) 87 133-450 [facility] HospitalFjwefqmFWGSKIMLLQ5546-03-33 09:32:00 Test Item Value Reference Range Interpretation Comments MPV (test code = MPV) 10.0 7.4-10.4 [facility]2021-08-07 09:32:00 Test Item Value Reference Range Interpretation Comments Glucose Lvl (test code = Glucose Lvl) 59 70-99 [place] 153771-08-07 09:32:00 Test Item Value Reference Range Interpretation Comments BUN (test code = BUN) 11 7-22 [place] 153771-08-07 09:32:00 Test Item Value Reference Range Interpretation Comments Creatinine Lvl (test code = Creatinine 2.75 0.50-1.40 Lvl) [place] 153771-08-07 09:32:00 Test Item Value Reference Range Interpretation Comments Sodium Lvl (test code = Sodium Lvl) 138 135-145 [place] [address]-08-07 09:32:00 Test Item Value Reference Range Interpretation Comments Potassium Lvl (test code = Potassium 4.1 3.5-5.1 Lvl) [place] 153771-08-07 09:32:00 Test Item Value Reference Range Interpretation Comments Chloride Lvl (test code = Chloride Lvl) 104 95-109 [place] 153771-08-07 09:32:00 Test Item Value Reference Range Interpretation Comments CO2 (test code = CO2) 29 24-32 [place] 153771-08-07 09:32:00 Test Item Value Reference Range Interpretation Comments Calcium Lvl (test code = Calcium Lvl) 8.3 8.5-10.5 [place] 153771-08-07 09:32:00 Test Item Value Reference Range Interpretation Comments AGAP (test code = AGAP) 9.1 10.0-20.0 [place] 153771-08-07 09:32:00 Test Item Value Reference Range Interpretation Comments eGFR (test code = eGFR) 21 [place] 153771-08-07 09:32:00 Test Item Value Reference Range Interpretation Comments Magnesium Lvl (test code = Magnesium 2.2 1.8-2.4 Lvl) [place] 153771-08-07 09:32:00 Test Item Value Reference Range Interpretation Comments Phosphorus (test code = Phosphorus) 3.9 2.5-4.5 [place] [address]-08-07 09:32:00 Test Item Value Reference Range Interpretation Comments WBC (test code = WBC) 2.3 3.7-10.4 [place] [address]-08-07 09:32:00 Test Item Value Reference Range Interpretation Comments RBC (test code = RBC) 2.78 4.20-5.40 [place] [address]-08-07 09:32:00 Test Item Value Reference Range Interpretation Comments Hgb (test code = Hgb) 8.4 12.0-16.0 [facility]WmooipfTCUJNVYWRG0429-39-90 09:32:00 Test Item Value Reference Range Interpretation Comments Hct (test code = Hct) 25.2 36.0-48.0 [facility] HospitalPxieiqaNUPEYLTSRN5200-93-64 09:32:00 Test Item Value Reference Range Interpretation Comments MCV (test code = MCV) 90.5 80.0-98.0 [facility] TexasYcnmmecGPMYRJBYBZ8464-76-10 09:32:00 Test Item Value Reference Range Interpretation Comments MCH (test code = MCH) 30.4 pg 27.0-31.0 [facility] TexasVvilljoHPXGWGQRQW1556-98-72 09:32:00 Test Item Value Reference Range Interpretation Comments MCHC (test code = MCHC) 33.5 32.0-36.0 [facility] HospitalJrryghyCJRZVBSVIW9585-83-77 09:32:00 Test Item Value Reference Range Interpretation Comments RDW (test code = RDW) 19.0 11.5-14.5 [facility] TexasBwwmpbnKDBJRSPIRS1964-36-13 09:32:00 Test Item Value Reference Range Interpretation Comments Platelet (test code = Platelet) 87 133-450 [facility] TexasAocujxzIXTFHQSOHE2083-14-11 09:32:00 Test Item Value Reference Range Interpretation Comments MPV (test code = MPV) 10.0 7.4-10.4 [facility] POTUZMB0000-04-22 05:33:00 Test Item Value Reference Range Interpretation Comments ABO/Rh (test code = ABO/Rh) B POS [facility] Splash NEKMHVG3506-16-15 05:33:00 Test Item Value Reference Range Interpretation Comments Antibody Scrn (test Negative (01/24/21 12:33 code = Antibody Scrn) AM) [facility] HospitalDytsgdhXCHVYXIVCK7673-72-07 05:33:00 Test Item Value Reference Range Interpretation Comments Segs (test code = Segs) 60.2 45.0-75.0 [facility] TexasLozzsppHYZLRFPPKX7838-37-29 05:33:00 Test Item Value Reference Range Interpretation Comments Lymphocytes (test code = Lymphocytes) 28.6 20.0-40.0 [facility] TexasUokuuynNHDKNCFWLE2050-10-11 05:33:00 Test Item Value Reference Range Interpretation Comments Monocytes (test code = Monocytes) 5.8 2.0-12.0 [facility] HospitalTpfmmprKWZYJWHJJT6544-55-65 05:33:00 Test Item Value Reference Range Interpretation Comments Eosinophils (test code = 4.2 See_Comment [A utomated message] The Eosinophils) system which ge nerated this result tra nsmitted reference range : <=4.0. The reference r leo was not used to int erpret this result as normal/abnormal . [facility] HospitalCplipqwTFJXZINMPT5464-89-82 05:33:00 Test Item Value Reference Range Interpretation Comments Basophils (test code = 1.2 See_Comment [Aut omated message] The Basophils) system which ge nerated this result tra nsmitted reference range : <=1.0. The reference r leo was not used to int erpret this result as normal/abnormal . [facility] HospitalYabgxkfRUSPLJVGNU9988-19-60 05:33:00 Test Item Value Reference Range Interpretation Comments Neutrophils # (test code = Neutrophils 2.2 1.5-8.1 #) [facility] HospitalAwkrmnwNTCWXWFRTP8806-38-63 05:33:00 Test Item Value Reference Range Interpretation Comments Lymphocytes # (test code = Lymphocytes 1.1 1.0-5.5 #) [facility] HospitalGkjfdijROASFGCTOV7267-09-85 05:33:00 Test Item Value Reference Range Interpretation Comments Monocytes # (test code 0.2 See_Comment [Aut omated message] The = Monocytes #) system which generated this result tra nsmitted reference range : <=0.8. The reference r leo was not used to int erpret this result as normal/abnormal . [facility] HospitalZlwrskvGJSJZZGMUO7342-84-31 05:33:00 Test Item Value Reference Range Interpretation Comments Eosinophils # (test code 0.2 See_Comment [A utomated message] The = Eosinophils #) system whic h generated this result tra nsmitted reference range : <=0.5. The reference r leo was not used to int erpret this result as normal/abnormal . [facility] TexasAdvisity GISTQJW0744-61-98 05:33:00 Test Item Value Reference Range Interpretation Comments ABO/Rh (test code = ABO/Rh) B POS [facility] GRTYLTJ5571-35-10 05:33:00 Test Item Value Reference Range Interpretation Comments Antibody Scrn (test Negative (01/24/21 12:33 code = Antibody Scrn) AM) [facility] HospitalAeyfmicTRCKZXWJXN1874-62-94 05:33:00 Test Item Value Reference Range Interpretation Comments Segs (test code = Segs) 60.2 45.0-75.0 [place] 944591-08-06 05:33:00 Test Item Value Reference Range Interpretation Comments Lymphocytes (test code = Lymphocytes) 28.6 20.0-40.0 [place] 944591-08-06 05:33:00 Test Item Value Reference Range Interpretation Comments Monocytes (test code = Monocytes) 5.8 2.0-12.0 [place] 944591-08-06 05:33:00 Test Item Value Reference Range Interpretation Comments Eosinophils (test code = 4.2 See_Comment [A utomated message] The Eosinophils) system which ge nerated this result tra nsmitted reference range : <=4.0. The reference r leo was not used to int erpret this result as normal/abnormal . [facility] HospitalFfqvotaXACRMHMRQS7583-09-06 05:33:00 Test Item Value Reference Range Interpretation Comments Basophils (test code = 1.2 See_Comment [Aut omated message] The Basophils) system which ge nerated this result tra nsmitted reference range : <=1.0. The reference r leo was not used to int erpret this result as normal/abnormal . [place] 944591-08-06 05:33:00 Test Item Value Reference Range Interpretation Comments Neutrophils # (test code = Neutrophils 2.2 1.5-8.1 #) [place] 944591-08-06 05:33:00 Test Item Value Reference Range Interpretation Comments Lymphocytes # (test code = Lymphocytes 1.1 1.0-5.5 #) [place] 944591-08-06 05:33:00 Test Item Value Reference Range Interpretation Comments Monocytes # (test code 0.2 See_Comment [Aut omated message] The = Monocytes #) system which generated this result tra nsmitted reference range : <=0.8. The reference r leo was not used to int erpret this result as normal/abnormal . [place] 944591-08-06 05:33:00 Test Item Value Reference Range Interpretation Comments Eosinophils # (test code 0.2 See_Comment [A utomated message] The = Eosinophils #) system whic h generated this result tra nsmitted reference range : <=0.5. The reference r leo was not used to int erpret this result as normal/abnormal . [facility] JEAHTEQ3529-01-09 05:33:00 Test Item Value Reference Range Interpretation Comments ABO/Rh (test code = ABO/Rh) B POS [facility] PBHIYMV5715-96-13 05:33:00 Test Item Value Reference Range Interpretation Comments Antibody Scrn (test Negative (01/24/21 12:33 code = Antibody Scrn) AM) [facility] HospitalKjwjmrhSHWEXXIUPY3785-19-53 05:33:00 Test Item Value Reference Range Interpretation Comments Segs (test code = Segs) 60.2 45.0-75.0 [facility] HospitalIxejvwmVJSFGNCDEV0298-96-84 05:33:00 Test Item Value Reference Range Interpretation Comments Lymphocytes (test code = Lymphocytes) 28.6 20.0-40.0 [facility] HospitalHaauyvvWVYDRICGLB8551-48-00 05:33:00 Test Item Value Reference Range Interpretation Comments Monocytes (test code = Monocytes) 5.8 2.0-12.0 [facility] HospitalGpbbzeqTWUUXTQRYE4904-78-68 05:33:00 Test Item Value Reference Range Interpretation Comments Eosinophils (test code = 4.2 See_Comment [A utomated message] The Eosinophils) system which ge nerated this result tra nsmitted reference range : <=4.0. The reference r leo was not used to int erpret this result as normal/abnormal . [facility] HospitalVkmvpjnYVTBHPWGCS1039-45-91 05:33:00 Test Item Value Reference Range Interpretation Comments Basophils (test code = 1.2 See_Comment [Aut omated message] The Basophils) system which ge nerated this result tra nsmitted reference range : <=1.0. The reference r leo was not used to int erpret this result as normal/abnormal . [facility] HospitalZtlafsgGTBEHMWEZW0885-30-67 05:33:00 Test Item Value Reference Range Interpretation Comments Neutrophils # (test code = Neutrophils 2.2 1.5-8.1 #) [facility] HospitalYzfldtqKNLXMYIJRK6457-34-35 05:33:00 Test Item Value Reference Range Interpretation Comments Lymphocytes # (test code = Lymphocytes 1.1 1.0-5.5 #) [facility] HospitalFsfidmiUWRTPVFJBV6169-64-10 05:33:00 Test Item Value Reference Range Interpretation Comments Monocytes # (test code 0.2 See_Comment [Aut omated message] The = Monocytes #) system which generated this result tra nsmitted reference range : <=0.8. The reference r leo was not used to int erpret this result as normal/abnormal . [facility] HospitalAgvfoqeOZWSFZZTET8269-61-71 05:33:00 Test Item Value Reference Range Interpretation Comments Eosinophils # (test code 0.2 See_Comment [A utomated message] The = Eosinophils #) system whic h generated this result tra nsmitted reference range : <=0.5. The reference r leo was not used to int erpret this result as normal/abnormal . [facility] TUEJOAX9478-54-37 05:33:00 Test Item Value Reference Range Interpretation Comments ABO/Rh (test code = ABO/Rh) B POS [facility]2021-08-06 05:33:00 Test Item Value Reference Range Interpretation Comments Antibody Scrn (test Negative (01/24/21 12:33 code = Antibody Scrn) AM) [facility] HospitalFaqxbfmRHXLGPPNDP4276-60-54 05:33:00 Test Item Value Reference Range Interpretation Comments Segs (test code = Segs) 60.2 45.0-75.0 [facility] HospitalNktgspnBGTGUMTNLV4294-14-28 05:33:00 Test Item Value Reference Range Interpretation Comments Lymphocytes (test code = Lymphocytes) 28.6 20.0-40.0 [facility] TexasIsarhmnLIRQUKQNFH6202-19-80 05:33:00 Test Item Value Reference Range Interpretation Comments Monocytes (test code = Monocytes) 5.8 2.0-12.0 [facility] HospitalEcyuhrpDCDOFSIISK0158-84-36 05:33:00 Test Item Value Reference Range Interpretation Comments Eosinophils (test code = 4.2 See_Comment [A utomated message] The Eosinophils) system which ge nerated this result tra nsmitted reference range : <=4.0. The reference r leo was not used to int erpret this result as normal/abnormal . [facility] HospitalVonisftYDZWPSQDTL1448-18-11 05:33:00 Test Item Value Reference Range Interpretation Comments Basophils (test code = 1.2 See_Comment [Aut omated message] The Basophils) system which ge nerated this result tra nsmitted reference range : <=1.0. The reference r leo was not used to int erpret this result as normal/abnormal . [facility] HospitalZbuethbTPSVCCDYEA5103-28-55 05:33:00 Test Item Value Reference Range Interpretation Comments Neutrophils # (test code = Neutrophils 2.2 1.5-8.1 #) [facility] HospitalDrhehscGXISYPEKTD8067-20-02 05:33:00 Test Item Value Reference Range Interpretation Comments Lymphocytes # (test code = Lymphocytes 1.1 1.0-5.5 #) [facility] HospitalWvxhxveWAGRHHELZX4437-53-78 05:33:00 Test Item Value Reference Range Interpretation Comments Monocytes # (test code 0.2 See_Comment [Aut omated message] The = Monocytes #) system which generated this result tra nsmitted reference range : <=0.8. The reference r leo was not used to int erpret this result as normal/abnormal . [facility] HospitalCbptbdxRLLRPHZQGD8169-15-71 05:33:00 Test Item Value Reference Range Interpretation Comments Eosinophils # (test code 0.2 See_Comment [A utomated message] The = Eosinophils #) system whic h generated this result tra nsmitted reference range : <=0.5. The reference r leo was not used to int erpret this result as normal/abnormal . [facility] HospitalYhptukbGEPHVLALCK8104-06-31 05:53:00 Test Item Value Reference Range Interpretation Comments PT (test code = PT) 14.4 s 12.0-14.7 [facility] HospitalUiiwzanJPFVZMOKEB4102-53-92 05:53:00 Test Item Value Reference Range Interpretation Comments INR (test code = INR) 1.13 1 0.85-1.17 [facility] HospitalQywdpdoSGKENTFXAM7957-53-47 05:53:00 Test Item Value Reference Range Interpretation Comments Fibrinogen Lvl (test code = Fibrinogen 319 230-510 Lvl) [facility] HospitalKmrbejxKNBUUHYCON2645-86-64 05:53:00 Test Item Value Reference Range Interpretation Comments Thrombin Time (test code = Thrombin 15.9 s 15.0-21.2 Time) [facility] HospitalPvwrmwkCLTDXLJWLQ8680-40-55 05:53:00 Test Item Value Reference Range Interpretation Comments PTT (test code = PTT) 47.0 s 22.9-35.8 [facility] HospitalOpsmzyqTONVQHJOYO9122-72-86 05:53:00 Test Item Value Reference Range Interpretation Comments D-Dimer (test code = D-Dimer) 0.91 [facility] HospitalOoqwqqdEFQGKRZYRW7831-18-87 05:53:00 Test Item Value Reference Range Interpretation Comments Basophils # (test code 0.1 See_Comment [Aut omated message] The = Basophils #) system which generated this result tra nsmitted reference range : <=0.2. The reference r leo was not used to int erpret this result as normal/abnormal . [facility]RO[facility] JCUKGFK6471-10-78 05:53:00 Test Item Value Reference Range Interpretation Comments Ca Ion WB (test code = Ca Ion WB) 1.24 1.05-1.25 [facility]2021-08-05 05:53:00 Test Item Value Reference Range Interpretation Comments Ca Norm WB (test code = Ca Norm WB) 1.25 1.05-1.25 [facility] HospitalLxgnfyxVMLMZXQFSS9514-39-25 05:53:00 Test Item Value Reference Range Interpretation Comments PT (test code = PT) 14.4 s 12.0-14.7 [facility] HospitalYkujrycABTOBGEVDL3223-85-59 05:53:00 Test Item Value Reference Range Interpretation Comments INR (test code = INR) 1.13 1 0.85-1.17 [facility] HospitalWxgruzrWXBYZBHCJH0972-23-74 05:53:00 Test Item Value Reference Range Interpretation Comments Fibrinogen Lvl (test code = Fibrinogen 319 230-510 Lvl) [facility] HospitalDjgevoaSJFNMTHGUD6089-65-43 05:53:00 Test Item Value Reference Range Interpretation Comments Thrombin Time (test code = Thrombin 15.9 s 15.0-21.2 Time) [facility] HospitalMquujtaBOCTVUQQFT7826-11-26 05:53:00 Test Item Value Reference Range Interpretation Comments PTT (test code = PTT) 47.0 s 22.9-35.8 [place] 944591-08-05 05:53:00 Test Item Value Reference Range Interpretation Comments D-Dimer (test code = D-Dimer) 0.91 [facility] HospitalXirslasFNUMOKCMCZ8744-33-98 05:53:00 Test Item Value Reference Range Interpretation Comments Basophils # (test code 0.1 See_Comment [Aut omated message] The = Basophils #) system which generated this result tra nsmitted reference range : <=0.2. The reference r leo was not used to int erpret this result as normal/abnormal . [place] 617631-08-05 05:53:00 Test Item Value Reference Range Interpretation Comments Ca Ion WB (test code = Ca Ion WB) 1.24 1.05-1.25 [place] 617631-08-05 05:53:00 Test Item Value Reference Range Interpretation Comments Ca Norm WB (test code = Ca Norm WB) 1.25 1.05-1.25 [place] 944591-08-05 05:53:00 Test Item Value Reference Range Interpretation Comments PT (test code = PT) 14.4 s 12.0-14.7 [place] 944591-08-05 05:53:00 Test Item Value Reference Range Interpretation Comments INR (test code = INR) 1.13 1 0.85-1.17 [place] 944591-08-05 05:53:00 Test Item Value Reference Range Interpretation Comments Fibrinogen Lvl (test code = Fibrinogen 319 230-510 Lvl) [facility] HospitalSgvirtyLDTFNZOWNQ1280-76-41 05:53:00 Test Item Value Reference Range Interpretation Comments Thrombin Time (test code = Thrombin 15.9 s 15.0-21.2 Time) [facility] HospitalDsggxyfDJECWACFKN8041-24-53 05:53:00 Test Item Value Reference Range Interpretation Comments PTT (test code = PTT) 47.0 s 22.9-35.8 [place] 944591-08-05 05:53:00 Test Item Value Reference Range Interpretation Comments D-Dimer (test code = D-Dimer) 0.91 [place] [address]-08-05 05:53:00 Test Item Value Reference Range Interpretation Comments Basophils # (test code 0.1 See_Comment [Aut omated message] The = Basophils #) system which generated this result tra nsmitted reference range : <=0.2. The reference r leo was not used to int erpret this result as normal/abnormal . [place] 617631-08-05 05:53:00 Test Item Value Reference Range Interpretation Comments Ca Ion WB (test code = Ca Ion WB) 1.24 1.05-1.25 [place] 617631-08-05 05:53:00 Test Item Value Reference Range Interpretation Comments Ca Norm WB (test code = Ca Norm WB) 1.25 1.05-1.25 [facility] TexasNncaggwTTQJCCVTLR1258-51-81 05:53:00 Test Item Value Reference Range Interpretation Comments PT (test code = PT) 14.4 s 12.0-14.7 [facility] HospitalOxxrttlXODPMRZYUU7147-39-93 05:53:00 Test Item Value Reference Range Interpretation Comments INR (test code = INR) 1.13 1 0.85-1.17 [facility]YtrekigWLBSFZXWYO4764-24-01 05:53:00 Test Item Value Reference Range Interpretation Comments Fibrinogen Lvl (test code = Fibrinogen 319 230-510 Lvl) [facility] HospitalKnwlcpbRDUZNABEDH6646-50-22 05:53:00 Test Item Value Reference Range Interpretation Comments Thrombin Time (test code = Thrombin 15.9 s 15.0-21.2 Time) [facility] HospitalIfgkbshKFUMXPKYHB4198-24-06 05:53:00 Test Item Value Reference Range Interpretation Comments PTT (test code = PTT) 47.0 s 22.9-35.8 [facility] HospitalNubseyvUMYDEAWHCU6861-30-75 05:53:00 Test Item Value Reference Range Interpretation Comments D-Dimer (test code = D-Dimer) 0.91 [facility] HospitalWqoiayeOTMDRFEWPS3973-09-46 05:53:00 Test Item Value Reference Range Interpretation Comments Basophils # (test code 0.1 See_Comment [Aut omated message] The = Basophils #) system which generated this result tra nsmitted reference range : <=0.2. The reference r leo was not used to int erpret this result as normal/abnormal . [facility] [id number] 05:53:00 Test Item Value Reference Range Interpretation Comments Ca Ion WB (test code = Ca Ion WB) 1.24 1.05-1.25 [facility] [id number] 05:53:00 Test Item Value Reference Range Interpretation Comments Ca Norm WB (test code = Ca Norm WB) 1.25 1.05-1.25 [facility]CHE[facility] [id number] 10:09:00 Test Item Value Reference Range Interpretation Comments ALT (test code = ALT) 49 See_Comment [Auto mated message] The system which ge nerated this result transmit rohit reference range : <=65. The reference range was not used to interpr et this result as reji l/abnormal. [place] 153771-08-04 10:09:00 Test Item Value Reference Range Interpretation Comments Albumin Lvl (test code = Albumin Lvl) 2.8 3.5-5.0 [place] 153771-08-04 10:09:00 Test Item Value Reference Range Interpretation Comments Alk Phos (test code = Alk Phos) 41 39-136 [place] 153771-08-04 10:09:00 Test Item Value Reference Range Interpretation Comments Bili Direct (test code 0.2 See_Comment [Aut omated message] The = Bili Direct) system which generated this result tra nsmitted reference range : <=0.3. The reference r leo was not used to int erpret this result as reji l/abnormal. [facility]2021-08-04 10:09:00 Test Item Value Reference Range Interpretation Comments Bili Total (test code = Bili Total) 0.6 0.2-1.3 [place] 153771-08-04 10:09:00 Test Item Value Reference Range Interpretation Comments Bili Indirect (test 0.4 See_Comment [Automa rohit message] The code = Bili Indirect) system which generated this result tra nsmitted reference range : <=1.0. The reference r leo was not used to int erpret this result as normal/abnormal . [place] 153771-08-04 10:09:00 Test Item Value Reference Range Interpretation Comments Total Protein (test code = Total 5.6 6.4-8.4 Protein) [place] 153771-08-04 10:09:00 Test Item Value Reference Range Interpretation Comments AST (test code = AST) 33 See_Comment [Auto mated message] The system which ge nerated this result transmit rohit reference range : <=37. The reference range was not used to interpr et this result as reji l/abnormal. [place] 153771-08-04 10:09:00 Test Item Value Reference Range Interpretation Comments Globulin (test code = Globulin) 2.8 2.7-4.2 [place] 153771-08-04 10:09:00 Test Item Value Reference Range Interpretation Comments A/G Ratio (test code = A/G Ratio) 1.0 1 0.7-1.6 [facility] [id number] 10:09:00 Test Item Value Reference Range Interpretation Comments Amylase Lvl (test code = Amylase Lvl) 19 25-115 [facility] [id number] 10:09:00 Test Item Value Reference Range Interpretation Comments Lipase Lvl (test code = Lipase Lvl) no gt 73-393 [facility] HospitalGyuezamLALOSTBNWW4424-10-05 10:09:00 Test Item Value Reference Range Interpretation Comments PTT (test code = PTT) 41.4 s 22.9-35.8 [facility] HospitalLizjkcuSGXNAMGKYC0368-05-43 10:09:00 Test Item Value Reference Range Interpretation Comments PT (test code = PT) 15.4 s 12.0-14.7 [facility] HospitalSysfidySQHKYZHUWG4302-04-09 10:09:00 Test Item Value Reference Range Interpretation Comments INR (test code = INR) 1.24 1 0.85-1.17 [facility] HospitalHpgjumnCXXTZGYMLS3253-39-50 10:09:00 Test Item Value Reference Range Interpretation Comments Fibrinogen Lvl (test code = Fibrinogen 312 230-510 Lvl) [facility] HospitalIeuohysQZMXROYJGF1562-44-99 10:09:00 Test Item Value Reference Range Interpretation Comments Thrombin Time (test code = Thrombin 16.6 s 15.0-21.2 Time) [facility] HospitalRygqyplTIRWIGZSLF5129-46-06 10:09:00 Test Item Value Reference Range Interpretation Comments D-Dimer (test code = D-Dimer) 4.91 [facility] HospitalUmhfhxsNRHKYIKJFF8017-70-89 10:09:00 Test Item Value Reference Range Interpretation Comments Basophils # (test code 0.1 See_Comment [Aut omated message] The = Basophils #) system which generated this result tra nsmitted reference range : <=0.2. The reference r leo was not used to int erpret this result as normal/abnormal . [facility] [id number] 10:09:00 Test Item Value Reference Range Interpretation Comments Hgb A1C (test code = Hgb A1C) 5.6 [facility] [id number] 10:09:00 Test Item Value Reference Range Interpretation Comments ALT (test code = ALT) 49 See_Comment [Auto mated message] The system which ge nerated this result transmit rohit reference range : <=65. The reference range was not used to interpr et this result as reji l/abnormal. [place] 153771-08-04 10:09:00 Test Item Value Reference Range Interpretation Comments Albumin Lvl (test code = Albumin Lvl) 2.8 3.5-5.0 [place] 153771-08-04 10:09:00 Test Item Value Reference Range Interpretation Comments Alk Phos (test code = Alk Phos) 41 39-136 [place] 153771-08-04 10:09:00 Test Item Value Reference Range Interpretation Comments Bili Direct (test code 0.2 See_Comment [Aut omated message] The = Bili Direct) system which generated this result tra nsmitted reference range : <=0.3. The reference r leo was not used to int erpret this result as reji l/abnormal. [place] 153771-08-04 10:09:00 Test Item Value Reference Range Interpretation Comments Bili Total (test code = Bili Total) 0.6 0.2-1.3 [place] 153771-08-04 10:09:00 Test Item Value Reference Range Interpretation Comments Bili Indirect (test 0.4 See_Comment [Automa rohit message] The code = Bili Indirect) system which generated this result tra nsmitted reference range : <=1.0. The reference r leo was not used to int erpret this result as normal/abnormal . [facility]2021-08-04 10:09:00 Test Item Value Reference Range Interpretation Comments Total Protein (test code = Total 5.6 6.4-8.4 Protein) [facility]2021-08-04 10:09:00 Test Item Value Reference Range Interpretation Comments AST (test code = AST) 33 See_Comment [Auto mated message] The system which ge nerated this result transmit rohit reference range : <=37. The reference range was not used to interpr et this result as reji l/abnormal. [facility]2021-08-04 10:09:00 Test Item Value Reference Range Interpretation Comments Globulin (test code = Globulin) 2.8 2.7-4.2 [facility] [id number] 10:09:00 Test Item Value Reference Range Interpretation Comments A/G Ratio (test code = A/G Ratio) 1.0 1 0.7-1.6 [facility] [id number] 10:09:00 Test Item Value Reference Range Interpretation Comments Amylase Lvl (test code = Amylase Lvl) 19 25-115 [facility] [id number] 10:09:00 Test Item Value Reference Range Interpretation Comments Lipase Lvl (test code = Lipase Lvl) no gt 73-393 [facility] HospitalOwxjgkyGVMHESKWZK8820-41-01 10:09:00 Test Item Value Reference Range Interpretation Comments PTT (test code = PTT) 41.4 s 22.9-35.8 [facility] HospitalWvxlswjIXLDQYDCRL3038-98-92 10:09:00 Test Item Value Reference Range Interpretation Comments PT (test code = PT) 15.4 s 12.0-14.7 [facility] HospitalTejuegnOFWLZZXVNW0286-47-39 10:09:00 Test Item Value Reference Range Interpretation Comments INR (test code = INR) 1.24 1 0.85-1.17 [facility] HospitalMsxarsfVKSJLVHUHQ6591-46-74 10:09:00 Test Item Value Reference Range Interpretation Comments Fibrinogen Lvl (test code = Fibrinogen 312 230-510 Lvl) [facility] HospitalHwqdhgpPZKIDQSMZD2754-99-13 10:09:00 Test Item Value Reference Range Interpretation Comments Thrombin Time (test code = Thrombin 16.6 s 15.0-21.2 Time) [facility] HospitalGhtrtwhTZOLGYNSGD9494-97-93 10:09:00 Test Item Value Reference Range Interpretation Comments D-Dimer (test code = D-Dimer) 4.91 [facility] HospitalHovimdhKOUETATOQC5817-17-65 10:09:00 Test Item Value Reference Range Interpretation Comments Basophils # (test code 0.1 See_Comment [Aut omated message] The = Basophils #) system which generated this result tra nsmitted reference range : <=0.2. The reference r leo was not used to int erpret this result as normal/abnormal . [facility] [id number] 10:09:00 Test Item Value Reference Range Interpretation Comments Hgb A1C (test code = Hgb A1C) 5.6 [facility] [id number] 10:09:00 Test Item Value Reference Range Interpretation Comments ALT (test code = ALT) 49 See_Comment [Auto mated message] The system which ge nerated this result transmit rohit reference range : <=65. The reference range was not used to interpr et this result as reji l/abnormal. [facility] [id number] 10:09:00 Test Item Value Reference Range Interpretation Comments Albumin Lvl (test code = Albumin Lvl) 2.8 3.5-5.0 [facility] [id number] 10:09:00 Test Item Value Reference Range Interpretation Comments Alk Phos (test code = Alk Phos) 41 39-136 [facility] [id number] 10:09:00 Test Item Value Reference Range Interpretation Comments Bili Direct (test code 0.2 See_Comment [Aut omated message] The = Bili Direct) system which generated this result tra nsmitted reference range : <=0.3. The reference r leo was not used to int erpret this result as reji l/abnormal. [facility] [id number] 10:09:00 Test Item Value Reference Range Interpretation Comments Bili Total (test code = Bili Total) 0.6 0.2-1.3 [facility] IUJCE4557-05-15 10:09:00 Test Item Value Reference Range Interpretation Comments Bili Indirect (test 0.4 See_Comment [Automa rohit message] The code = Bili Indirect) system which generated this result tra nsmitted reference range : <=1.0. The reference r leo was not used to int erpret this result as normal/abnormal . [facility] [id number] 10:09:00 Test Item Value Reference Range Interpretation Comments Total Protein (test code = Total 5.6 6.4-8.4 Protein) [facility] [id number] 10:09:00 Test Item Value Reference Range Interpretation Comments AST (test code = AST) 33 See_Comment [Auto mated message] The system which ge nerated this result transmit rohit reference range : <=37. The reference range was not used to interpr et this result as reji l/abnormal. [facility] [id number] 10:09:00 Test Item Value Reference Range Interpretation Comments Globulin (test code = Globulin) 2.8 2.7-4.2 [facility] [id number] 10:09:00 Test Item Value Reference Range Interpretation Comments A/G Ratio (test code = A/G Ratio) 1.0 1 0.7-1.6 [facility] [id number] 10:09:00 Test Item Value Reference Range Interpretation Comments Amylase Lvl (test code = Amylase Lvl) 19 25-115 [facility] [id number] 10:09:00 Test Item Value Reference Range Interpretation Comments Lipase Lvl (test code = Lipase Lvl) no gt 73-393 [facility] TexasBlflpgvTPTTJCNPFW5054-45-82 10:09:00 Test Item Value Reference Range Interpretation Comments PTT (test code = PTT) 41.4 s 22.9-35.8 [facility] HospitalOiqnqvtANGLBPLLPI6039-76-72 10:09:00 Test Item Value Reference Range Interpretation Comments PT (test code = PT) 15.4 s 12.0-14.7 [facility] HospitalLczdlprKMCCGDYFGM5992-51-54 10:09:00 Test Item Value Reference Range Interpretation Comments INR (test code = INR) 1.24 1 0.85-1.17 [facility] TexasAfzdlqsYUHDQNKNGH2055-29-18 10:09:00 Test Item Value Reference Range Interpretation Comments Fibrinogen Lvl (test code = Fibrinogen 312 230-510 Lvl) [facility] TexasRfwqpefPUHBWSMBLZ3256-53-53 10:09:00 Test Item Value Reference Range Interpretation Comments Thrombin Time (test code = Thrombin 16.6 s 15.0-21.2 Time) [facility] HospitalRhpzvqxGYEDCYVLLQ4937-17-16 10:09:00 Test Item Value Reference Range Interpretation Comments D-Dimer (test code = D-Dimer) 4.91 [facility] TexasWfrehwoDBCSFEDZXN3699-56-60 10:09:00 Test Item Value Reference Range Interpretation Comments Basophils # (test code 0.1 See_Comment [Aut omated message] The = Basophils #) system which generated this result tra nsmitted reference range : <=0.2. The reference r leo was not used to int erpret this result as normal/abnormal . [facility] [id number] 10:09:00 Test Item Value Reference Range Interpretation Comments Hgb A1C (test code = Hgb A1C) 5.6 [facility] [id number] 10:09:00 Test Item Value Reference Range Interpretation Comments ALT (test code = ALT) 49 See_Comment [Auto mated message] The system which ge nerated this result transmit rohit reference range : <=65. The reference range was not used to interpr et this result as reji l/abnormal. [facility] [employer] [id number] 10:09:00 Test Item Value Reference Range Interpretation Comments Albumin Lvl (test code = Albumin Lvl) 2.8 3.5-5.0 [facility] [employer] [id number] 10:09:00 Test Item Value Reference Range Interpretation Comments Alk Phos (test code = Alk Phos) 41 39-136 [facility] [employer] [id number] 10:09:00 Test Item Value Reference Range Interpretation Comments Bili Direct (test code 0.2 See_Comment [Aut omated message] The = Bili Direct) system which generated this result tra nsmitted reference range : <=0.3. The reference r leo was not used to int erpret this result as reji l/abnormal. [facility] [employer] [id number] 10:09:00 Test Item Value Reference Range Interpretation Comments Bili Total (test code = Bili Total) 0.6 0.2-1.3 [facility] [id number] 10:09:00 Test Item Value Reference Range Interpretation Comments Bili Indirect (test 0.4 See_Comment [Automa rohit message] The code = Bili Indirect) system which generated this result tra nsmitted reference range : <=1.0. The reference r leo was not used to int erpret this result as normal/abnormal . [facility] [employer] [id number] 10:09:00 Test Item Value Reference Range Interpretation Comments Total Protein (test code = Total 5.6 6.4-8.4 Protein) [facility] [id number] 10:09:00 Test Item Value Reference Range Interpretation Comments AST (test code = AST) 33 See_Comment [Auto mated message] The system which ge nerated this result transmit rohit reference range : <=37. The reference range was not used to interpr et this result as reji l/abnormal. [facility] [employer] [id number] 10:09:00 Test Item Value Reference Range Interpretation Comments Globulin (test code = Globulin) 2.8 2.7-4.[address] [facility]2021-08-04 10:09:00 Test Item Value Reference Range Interpretation Comments A/G Ratio (test code = A/G Ratio) 1.0 1 0.7-1.6 [facility]2021-08-04 10:09:00 Test Item Value Reference Range Interpretation Comments Amylase Lvl (test code = Amylase Lvl) 19 25-115 [facility] [id number] 10:09:00 Test Item Value Reference Range Interpretation Comments Lipase Lvl (test code = Lipase Lvl) no gt 73-393 [facility] HospitalBosgdqnDEWYTGAYRA6556-88-39 10:09:00 Test Item Value Reference Range Interpretation Comments PTT (test code = PTT) 41.4 s 22.9-35.8 [facility] HospitalAcwovmcHCAQHDLRJI1440-54-63 10:09:00 Test Item Value Reference Range Interpretation Comments PT (test code = PT) 15.4 s 12.0-14.7 [facility] HospitalAzprwdcTSBLTPGOVW7010-22-01 10:09:00 Test Item Value Reference Range Interpretation Comments INR (test code = INR) 1.24 1 0.85-1.17 [facility] HospitalIzqyhkaELNMNNYFOK4735-63-06 10:09:00 Test Item Value Reference Range Interpretation Comments Fibrinogen Lvl (test code = Fibrinogen 312 230-510 Lvl) [facility] HospitalLqszzvkVGGGRXKTYZ5986-77-75 10:09:00 Test Item Value Reference Range Interpretation Comments Thrombin Time (test code = Thrombin 16.6 s 15.0-21.2 Time) [facility] HospitalQzdqitfOWVDBRRZHS2036-97-64 10:09:00 Test Item Value Reference Range Interpretation Comments D-Dimer (test code = D-Dimer) 4.91 [facility] HospitalTcmsmovKBUJVFVJTL3893-89-63 10:09:00 Test Item Value Reference Range Interpretation Comments Basophils # (test code 0.1 See_Comment [Aut omated message] The = Basophils #) system which generated this result tra nsmitted reference range : <=0.2. The reference r leo was not used to int erpret this result as normal/abnormal . [facility] DHZNJWJVL2474-56-97 10:09:00 Test Item Value Reference Range Interpretation Comments Hgb A1C (test code = Hgb A1C) 5.6 [facility] [id number] 09:07:00 Test Item Value Reference Range Interpretation Comments Amylase Lvl (test code = Amylase Lvl) 4 25-115 [facility] HospitalAfhxmjmRXUDJODQWF3315-61-08 09:07:00 Test Item Value Reference Range Interpretation Comments Thrombin Time (test code = Thrombin 18.0 s 15.0-21.2 Time) [facility] HospitalYbjbtxoINAILGWHUT2135-30-92 09:07:00 Test Item Value Reference Range Interpretation Comments PT (test code = PT) 24.6 s 12.0-14.7 [facility] HospitalJvytjcaSBHONIVXLT7691-79-33 09:07:00 Test Item Value Reference Range Interpretation Comments INR (test code = INR) 2.31 1 0.85-1.17 [facility] HospitalHwryslkJHKKWZQVDQ6818-27-04 09:07:00 Test Item Value Reference Range Interpretation Comments PTT (test code = PTT) 57.5 s 22.9-35.8 [place] 944591-08-04 09:07:00 Test Item Value Reference Range Interpretation Comments Fibrinogen Lvl (test code = Fibrinogen 125 230-510 Lvl) [facility] HospitalPwoiwxkLMDVPBPGMH9197-37-69 09:07:00 Test Item Value Reference Range Interpretation Comments D-Dimer (test code = D-Dimer) 2.28 [facility]2021-08-04 09:07:00 Test Item Value Reference Range Interpretation Comments Amylase Lvl (test code = Amylase Lvl) 4 25-115 [facility] HospitalIwaeofcRDGFKANLAL5859-63-54 09:07:00 Test Item Value Reference Range Interpretation Comments Thrombin Time (test code = Thrombin 18.0 s 15.0-21.2 Time) [facility] HospitalVjohhqwHCMGMTYVCD4536-35-56 09:07:00 Test Item Value Reference Range Interpretation Comments PT (test code = PT) 24.6 s 12.0-14.7 [place] 944591-08-04 09:07:00 Test Item Value Reference Range Interpretation Comments INR (test code = INR) 2.31 1 0.85-1.17 [facility] HospitalUwukavxDJQVXYPTBX9226-16-09 09:07:00 Test Item Value Reference Range Interpretation Comments PTT (test code = PTT) 57.5 s 22.9-35.8 [facility] HospitalSjgkewgHUDPVUXGOU9520-35-11 09:07:00 Test Item Value Reference Range Interpretation Comments Fibrinogen Lvl (test code = Fibrinogen 125 230-510 Lvl) [place] 944591-08-04 09:07:00 Test Item Value Reference Range Interpretation Comments D-Dimer (test code = D-Dimer) 2.28 [facility]2021-08-04 09:07:00 Test Item Value Reference Range Interpretation Comments Amylase Lvl (test code = Amylase Lvl) 4 25-115 [facility] HospitalUegqmdaIFWPEUVYED9639-47-86 09:07:00 Test Item Value Reference Range Interpretation Comments Thrombin Time (test code = Thrombin 18.0 s 15.0-21.2 Time) [place] 944591-08-04 09:07:00 Test Item Value Reference Range Interpretation Comments PT (test code = PT) 24.6 s 12.0-14.7 [place] 944591-08-04 09:07:00 Test Item Value Reference Range Interpretation Comments INR (test code = INR) 2.31 1 0.85-1.17 [place] 944591-08-04 09:07:00 Test Item Value Reference Range Interpretation Comments PTT (test code = PTT) 57.5 s 22.9-35.8 [place] 944591-08-04 09:07:00 Test Item Value Reference Range Interpretation Comments Fibrinogen Lvl (test code = Fibrinogen 125 230-510 Lvl) [facility] HospitalPwangccEJUWPCJFCQ5717-21-56 09:07:00 Test Item Value Reference Range Interpretation Comments D-Dimer (test code = D-Dimer) 2.28 [facility]2021-08-04 09:07:00 Test Item Value Reference Range Interpretation Comments Amylase Lvl (test code = Amylase Lvl) 4 25-115 [facility] HospitalTyoawjqZAZKCEKCZE8570-64-26 09:07:00 Test Item Value Reference Range Interpretation Comments Thrombin Time (test code = Thrombin 18.0 s 15.0-21.2 Time) [place] 944591-08-04 09:07:00 Test Item Value Reference Range Interpretation Comments PT (test code = PT) 24.6 s 12.0-14.7 [place] 944591-08-04 09:07:00 Test Item Value Reference Range Interpretation Comments INR (test code = INR) 2.31 1 0.85-1.17 [place] 944591-08-04 09:07:00 Test Item Value Reference Range Interpretation Comments PTT (test code = PTT) 57.5 s 22.9-35.8 [facility]WmdjrbhJWWHVEDSZW5216-98-58 09:07:00 Test Item Value Reference Range Interpretation Comments Fibrinogen Lvl (test code = Fibrinogen 125 230-510 Lvl) [facility] HospitalQdsrzuzKZSZCJNFZL5884-97-62 09:07:00 Test Item Value Reference Range Interpretation Comments D-Dimer (test code = D-Dimer) 2.28 [facility] CKGFPET1197-69-59 04:52:00 Test Item Value Reference Range Interpretation Comments RBC product (test code Product available = RBC product) (01/21/21 11:52 PM) [facility] CenterHuango.cnAud[facility] SUQHPSJ4652-35-57 04:52:00 Test Item Value Reference Range Interpretation Comments RBC product (test code Product available = RBC product) (01/21/21 11:52 PM) [facility] JZTETFK0054-26-24 04:52:00 Test Item Value Reference Range Interpretation Comments RBC product (test code Product available = RBC product) (01/21/21 11:52 PM) [facility] [id number] 04:52:00 Test Item Value Reference Range Interpretation Comments RBC product (test code Product available = RBC product) (01/21/21 11:52 PM) [facility] [employer]2021-08-04 00:38:00 Test Item Value Reference Range Interpretation Comments Troponin-I (test code no gt See_Comment [Auto mated message] The = Troponin-I) system which g enerated this result transmit rohit reference range : <=0.40. The reference r leo was not used to interpr et this result as reji l/abnormal. [facility] [employer]2021-08-04 00:38:00 Test Item Value Reference Range Interpretation Comments Troponin-I (test code no gt See_Comment [Auto mated message] The = Troponin-I) system which g enerated this result transmit rohit reference range : <=0.40. The reference r leo was not used to interpr et this result as reji l/abnormal. [employer]2021-08-04 00:38:00 Test Item Value Reference Range Interpretation Comments Troponin-I (test code no gt See_Comment [Auto mated message] The = Troponin-I) system which g enerated this result transmit rohit reference range : <=0.40. The reference r leo was not used to interpr et this result as reji l/abnormal. [facility] [employer] ([employer])2021-08-04 00:38:00 Test Item Value Reference Range Interpretation Comments Troponin-I (test code no gt See_Comment [Auto mated message] The = Troponin-I) system which g enerated this result transmit rohit reference range : <=0.40. The reference r leo was not used to interpr et this result as reji l/abnormal. [facility] [employer] ([employer])2021-08-03 17:47:00 Test Item Value Reference Range Interpretation Comments BNP (test code = BNP) 2323 [facility] [employer] ([employer])2021-08-03 17:47:00 Test Item Value Reference Range Interpretation Comments Troponin-I (test code 0.02 See_Comment [Auto mated message] The = Troponin-I) system which g enerated this result transmit rohit reference range : <=0.40. The reference r leo was not used to interpr et this result as reji l/abnormal. [facility] [id number] 17:47:00 Test Item Value Reference Range Interpretation Comments Hep Bs Ag (test code Negative *NA*(01/21/21 = Hep Bs Ag) 12:47 PM) [facility] [employer] ([employer])2021-08-03 17:47:00 Test Item Value Reference Range Interpretation Comments BNP (test code = BNP) 2323 [facility] [employer] ([employer])2021-08-03 17:47:00 Test Item Value Reference Range Interpretation Comments Troponin-I (test code 0.02 See_Comment [Auto mated message] The = Troponin-I) system which g enerated this result transmit rohit reference range : <=0.40. The reference r leo was not used to interpr et this result as reji l/abnormal. [facility] [id number] 17:47:00 Test Item Value Reference Range Interpretation Comments Hep Bs Ag (test code Negative *NA*(01/21/21 = Hep Bs Ag) 12:47 PM) [facility] [employer] ([employer])2021-08-03 17:47:00 Test Item Value Reference Range Interpretation Comments BNP (test code = BNP) 2324 [facility] [employer] ([employer])2021-08-03 17:47:00 Test Item Value Reference Range Interpretation Comments Troponin-I (test code 0.02 See_Comment [Auto mated message] The = Troponin-I) system which g enerated this result transmit rohit reference range : <=0.40. The reference r leo was not used to interpr et this result as reji l/abnormal. [facility] [id number] 17:47:00 Test Item Value Reference Range Interpretation Comments Hep Bs Ag (test code Negative *NA*(01/21/21 = Hep Bs Ag) 12:47 PM) [facility] [employer] [id number] 17:47:00 Test Item Value Reference Range Interpretation Comments BNP (test code = BNP) 2323 [facility] [employer] ([employer])2021-08-03 17:47:00 Test Item Value Reference Range Interpretation Comments Troponin-I (test code 0.02 See_Comment [Auto mated message] The = Troponin-I) system which g enerated this result transmit rohit reference range : <=0.40. The reference r leo was not used to interpr et this result as reji l/abnormal. [facility] [id number] 17:47:00 Test Item Value Reference Range Interpretation Comments Hep Bs Ag (test code Negative *NA*(01/21/21 = Hep Bs Ag) 12:47 PM) [facility] [place]2021-08-03 17:43:00 Test Item Value Reference Range Interpretation Comments B/C Ratio (test code = B/C Ratio) 5 1 6-25 [facility] [place]2021-08-03 17:43:00 Test Item Value Reference Range Interpretation Comments ALT (test code = ALT) 66 See_Comment [Auto mated message] The system which ge nerated this result transmit rohit reference range : <=65. The reference range was not used to interpr et this result as reji l/abnormal. [facility] [place]2021-08-03 17:43:00 Test Item Value Reference Range Interpretation Comments Albumin Lvl (test code = Albumin Lvl) 3.0 3.5-5.0 [facility] [place]2021-08-03 17:43:00 Test Item Value Reference Range Interpretation Comments Alk Phos (test code = Alk Phos) 40 39-136 [facility] [employer] [id number] 17:43:00 Test Item Value Reference Range Interpretation Comments Bili Total (test code = Bili Total) 0.5 0.2-1.3 [facility] [id number] 17:43:00 Test Item Value Reference Range Interpretation Comments Total Protein (test code = Total 5.7 6.4-8.4 Protein) [facility] [id number] 17:43:00 Test Item Value Reference Range Interpretation Comments AST (test code = AST) 52 See_Comment [Auto mated message] The system which ge nerated this result transmit rohit reference range : <=37. The reference range was not used to interpr et this result as reji l/abnormal. [facility] [employer] [id number] 17:43:00 Test Item Value Reference Range Interpretation Comments Globulin (test code = Globulin) 2.7 2.7-4.2 [facility] [employer] [id number] 17:43:00 Test Item Value Reference Range Interpretation Comments A/G Ratio (test code = A/G Ratio) 1.1 1 0.7-1.6 [facility] [id number] 17:43:00 Test Item Value Reference Range Interpretation Comments Lactic Acid Lvl (test code = Lactic 1.1 0.5-2.2 Acid Lvl) [facility] [id number] 17:43:00 Test Item Value Reference Range Interpretation Comments B/C Ratio (test code = B/C Ratio) 5 1 6-25 [facility] [employer] [id number] 17:43:00 Test Item Value Reference Range Interpretation Comments ALT (test code = ALT) 66 See_Comment [Auto mated message] The system which ge nerated this result transmit rohit reference range : <=65. The reference range was not used to interpr et this result as reji l/abnormal. [facility] [employer] [id number] 17:43:00 Test Item Value Reference Range Interpretation Comments Albumin Lvl (test code = Albumin Lvl) 3.0 3.5-5.0 [facility] [id number] 17:43:00 Test Item Value Reference Range Interpretation Comments Alk Phos (test code = Alk Phos) 40 39-136 [facility] [id number] 17:43:00 Test Item Value Reference Range Interpretation Comments Bili Total (test code = Bili Total) 0.5 0.2-1.3 [facility] [id number] 17:43:00 Test Item Value Reference Range Interpretation Comments Total Protein (test code = Total 5.7 6.4-8.4 Protein) [facility] [id number] 17:43:00 Test Item Value Reference Range Interpretation Comments AST (test code = AST) 52 See_Comment [Auto mated message] The system which ge nerated this result transmit rohit reference range : <=37. The reference range was not used to interpr et this result as reji l/abnormal. [facility] [id number] 17:43:00 Test Item Value Reference Range Interpretation Comments Globulin (test code = Globulin) 2.7 2.7-4.2 [facility] [id number] 17:43:00 Test Item Value Reference Range Interpretation Comments A/G Ratio (test code = A/G Ratio) 1.1 1 0.7-1.6 [facility] [id number] 17:43:00 Test Item Value Reference Range Interpretation Comments Lactic Acid Lvl (test code = Lactic 1.1 0.5-2.2 Acid Lvl) [facility] [id number] 17:43:00 Test Item Value Reference Range Interpretation Comments B/C Ratio (test code = B/C Ratio) 5 1 6-25 [facility] [id number] 17:43:00 Test Item Value Reference Range Interpretation Comments ALT (test code = ALT) 66 See_Comment [Auto mated message] The system which ge nerated this result transmit rohit reference range : <=65. The reference range was not used to interpr et this result as reji l/abnormal. [facility] [employer] [id number] 17:43:00 Test Item Value Reference Range Interpretation Comments Albumin Lvl (test code = Albumin Lvl) 3.0 3.5-5.0 [facility] [id number] 17:43:00 Test Item Value Reference Range Interpretation Comments Alk Phos (test code = Alk Phos) 40 39-136 [facility] [id number] 17:43:00 Test Item Value Reference Range Interpretation Comments Bili Total (test code = Bili Total) 0.5 0.2-1.3 [facility] [id number] 17:43:00 Test Item Value Reference Range Interpretation Comments Total Protein (test code = Total 5.7 6.4-8.4 Protein) [facility] [id number] 17:43:00 Test Item Value Reference Range Interpretation Comments AST (test code = AST) 52 See_Comment [Auto mated message] The system which ge nerated this result transmit rohit reference range : <=37. The reference range was not used to interpr et this result as reji l/abnormal. [facility] [id number] 17:43:00 Test Item Value Reference Range Interpretation Comments Globulin (test code = Globulin) 2.7 2.7-4.2 [facility] [id number] 17:43:00 Test Item Value Reference Range Interpretation Comments A/G Ratio (test code = A/G Ratio) 1.1 1 0.7-1.6 [facility] [id number] 17:43:00 Test Item Value Reference Range Interpretation Comments Lactic Acid Lvl (test code = Lactic 1.1 0.5-2.2 Acid Lvl) [facility] [id number] 17:43:00 Test Item Value Reference Range Interpretation Comments B/C Ratio (test code = B/C Ratio) 5 1 6-25 [facility] [id number] 17:43:00 Test Item Value Reference Range Interpretation Comments ALT (test code = ALT) 66 See_Comment [Auto mated message] The system which ge nerated this result transmit rohit reference range : <=65. The reference range was not used to interpr et this result as reji l/abnormal. [facility] [employer] [id number] 17:43:00 Test Item Value Reference Range Interpretation Comments Albumin Lvl (test code = Albumin Lvl) 3.0 3.5-5.0 [facility] [id number] 17:43:00 Test Item Value Reference Range Interpretation Comments Alk Phos (test code = Alk Phos) 40 39-136 [facility] [id number] 17:43:00 Test Item Value Reference Range Interpretation Comments Bili Total (test code = Bili Total) 0.5 0.2-1.3 [facility] [employer] [id number] 17:43:00 Test Item Value Reference Range Interpretation Comments Total Protein (test code = Total 5.7 6.4-8.4 Protein) [facility] [employer] [id number] 17:43:00 Test Item Value Reference Range Interpretation Comments AST (test code = AST) 52 See_Comment [Auto mated message] The system which ge nerated this result transmit rohit reference range : <=37. The reference range was not used to interpr et this result as reji l/abnormal. [employer]2021-08-03 17:43:00 Test Item Value Reference Range Interpretation Comments Globulin (test code = Globulin) 2.7 2.7-4.2 [facility] [employer] [id number] 17:43:00 Test Item Value Reference Range Interpretation Comments A/G Ratio (test code = A/G Ratio) 1.1 1 0.7-1.6 [facility] [place]2021-08-03 17:43:00 Test Item Value Reference Range Interpretation Comments Lactic Acid Lvl (test code = Lactic 1.1 0.5-2.2 Acid Lvl) [facility] [employer] [id number] 16:20:00 Test Item Value Reference Range Interpretation Comments ABO/Rh (test code = ABO/Rh) B POS [facility] [employer] [id number] 16:20:00 Test Item Value Reference Range Interpretation Comments Antibody Scrn (test Negative (01/21/21 11:20 code = Antibody Scrn) AM) [facility] [id number] 16:20:00 Test Item Value Reference Range Interpretation Comments Anisocyte (test code = 1+ *ABN*(01/21/21 Anisocyte) 11:20 AM) [employer] [id number] 16:20:00 Test Item Value Reference Range Interpretation Comments ABO/Rh (test code = ABO/Rh) B POS [facility] [employer] [id number] 16:20:00 Test Item Value Reference Range Interpretation Comments Antibody Scrn (test Negative (01/21/21 11:20 code = Antibody Scrn) AM) [facility] [id number] 16:20:00 Test Item Value Reference Range Interpretation Comments Anisocyte (test code = 1+ *ABN*(01/21/21 Anisocyte) 11:20 AM) [facility] [id number] 16:20:00 Test Item Value Reference Range Interpretation Comments ABO/Rh (test code = ABO/Rh) B POS [facility] [id number] 16:20:00 Test Item Value Reference Range Interpretation Comments Antibody Scrn (test Negative (01/21/21 11:20 code = Antibody Scrn) AM) [id number] 16:20:00 Test Item Value Reference Range Interpretation Comments Anisocyte (test code = 1+ *ABN*(01/21/21 Anisocyte) 11:20 AM) [facility] [id number] 16:20:00 Test Item Value Reference Range Interpretation Comments ABO/Rh (test code = ABO/Rh) B POS [facility] [id number] 16:20:00 Test Item Value Reference Range Interpretation Comments Antibody Scrn (test Negative (01/21/21 11:20 code = Antibody Scrn) AM) [id number] 16:20:00 Test Item Value Reference Range Interpretation Comments Anisocyte (test code = 1+ *ABN*(01/21/21 Anisocyte) 11:20 AM) [facility] [id number] 15:35:00 Test Item Value Reference Range Interpretation Comments Lactase Lvl (test code = Lactase Lvl) 2.0 [facility] [id number] 15:35:00 Test Item Value Reference Range Interpretation Comments Sucrase Lvl (test code = Sucrase Lvl) 38.6 [facility] [id number] 15:35:00 Test Item Value Reference Range Interpretation Comments Maltase Lvl (test code = Maltase Lvl) 177.2 [facility] [id number] 15:35:00 Test Item Value Reference Range Interpretation Comments Palatinase Lvl (test code = Palatinase 13.8 Lvl) [facility] [id number] 15:35:00 Test Item Value Reference Range Interpretation Comments Lactase Lvl (test code = Lactase Lvl) 2.0 [facility] [id number] 15:35:00 Test Item Value Reference Range Interpretation Comments Sucrase Lvl (test code = Sucrase Lvl) 38.6 [facility] [id number] 15:35:00 Test Item Value Reference Range Interpretation Comments Maltase Lvl (test code = Maltase Lvl) 177.2 [facility] [id number] 15:35:00 Test Item Value Reference Range Interpretation Comments Palatinase Lvl (test code = Palatinase 13.8 Lvl) [facility] [id number] 15:35:00 Test Item Value Reference Range Interpretation Comments Lactase Lvl (test code = Lactase Lvl) 2.0 [facility] [id number] 15:35:00 Test Item Value Reference Range Interpretation Comments Sucrase Lvl (test code = Sucrase Lvl) 38.6 [facility] [id number] 15:35:00 Test Item Value Reference Range Interpretation Comments Maltase Lvl (test code = Maltase Lvl) 177.2 [facility] [id number] 15:35:00 Test Item Value Reference Range Interpretation Comments Palatinase Lvl (test code = Palatinase 13.8 Lvl) [facility] [id number] 15:35:00 Test Item Value Reference Range Interpretation Comments Lactase Lvl (test code = Lactase Lvl) 2.0 [facility] [id number] 15:35:00 Test Item Value Reference Range Interpretation Comments Sucrase Lvl (test code = Sucrase Lvl) 38.6 [facility] [id number] 15:35:00 Test Item Value Reference Range Interpretation Comments Maltase Lvl (test code = Maltase Lvl) 177.2 [facility] [id number] 15:35:00 Test Item Value Reference Range Interpretation Comments Palatinase Lvl (test code = Palatinase 13.8 Lvl) [id number] 13:21:00 Test Item Value Reference Range Interpretation Comments Potassium WB (test code = Potassium WB) 5.1 3.5-5.1 [place] [id number] 13:21:00 Test Item Value Reference Range Interpretation Comments S Preg (test code = S Negative 8*NA*(01/21/21 Preg) 8:21 AM) [id number] 13:21:00 Test Item Value Reference Range Interpretation Comments Potassium WB (test code = Potassium WB) 5.1 3.5-5.1 [place] [id number] 13:21:00 Test Item Value Reference Range Interpretation Comments S Preg (test code = S Negative 8*NA*(01/21/21 Preg) 8:21 AM) [facility] H[id number] 13:21:00 Test Item Value Reference Range Interpretation Comments Potassium WB (test code = Potassium WB) 5.1 3.5-5.1 [place] [id number] 13:21:00 Test Item Value Reference Range Interpretation Comments S Preg (test code = S Negative 8*NA*(01/21/21 Preg) 8:21 AM) [facility] Hos[id number] 13:21:00 Test Item Value Reference Range Interpretation Comments Potassium WB (test code = Potassium WB) 5.1 3.5-5.1 [place] [id number] 13:21:00 Test Item Value Reference Range Interpretation Comments S Preg (test code = S Negative 8*NA*(01/21/21 Preg) 8:21 AM) [id number] 11:19:00 Test Item Value Reference Range Interpretation Comments Coronavirus (COVID-19) Not Detected (01/21/21 EMANUEL (test code = 6:19 AM) Coronavirus (COVID-19) EMANUEL) [id number] 11:19:00 Test Item Value Reference Range Interpretation Comments Coronavirus (COVID-19) Not Detected (01/21/21 EMANUEL (test code = 6:19 AM) Coronavirus (COVID-19) EMANUEL) [id number] 11:19:00 Test Item Value Reference Range Interpretation Comments Coronavirus (COVID-19) Not Detected (01/21/21 EMANUEL (test code = 6:19 AM) Coronavirus (COVID-19) EMANUEL) [facility]UwkvvxqCEYOJKZPJI9442-07-08 11:19:00 Test Item Value Reference Range Interpretation Comments Coronavirus (COVID-19) Not Detected (01/21/21 EMANUEL (test code = 6:19 AM) Coronavirus (COVID-19) EMANUEL) [facility] [id number] 16:39:05 Test Item Value Reference Range Interpretation Comments Glucose POC (test 183 mg/dL 70-115 H If you con grinder your code = Glucose POC) patient critically ill, the [employer]-Accu Check Infrom II meter should not be used for Glucose determination. Draw a venous Glucose and send to the main Lab for analysis. Urine [id number] 11:32:13 Test Item Value Reference Range Interpretation [...] Escherichia coli C Urine Added by [id number] [id number] 07:52:10 Test Item Value Reference Range Interpretation Comments Glucose POC (test 160 mg/dL 70-115 H If you con grinder your code = Glucose POC) patient critically ill, the Merlin-Accu Check Infrom II meter should not be used for Glucose determination. Draw a venous Glucose and send to the main Lab for analysis. POC [id number] 19:32:05 Test Item Value Reference Range Interpretation Comments Glucose POC (test 184 mg/dL 70-115 H If you con grinder your code = Glucose POC) patient critically ill, the Merlin-Accu Check Infrom II meter should not be used for Glucose determination. Draw a venous Glucose and send to the main Lab for analysis. POC [id number] 17:16:35 Test Item Value Reference Range Interpretation Comments Glucose POC (test 281 mg/dL 70-115 H Notify RN or MDIf you code = Glucose POC) consider your patient critically ill, the [employer]lin-Accu Chec k Infrom II meter should not be used for Glucos e determination. Draw a venous Glucose and send to the main Lab for analysis. POC [id number] 12:00:38 Test Item Value Reference Range Interpretation Comments Glucose POC (test 138 mg/dL 70-115 H Notify RN or MDIf you code = Glucose POC) consider your patient critically ill, the [employer]lin-Accu Chec k Infrom II meter should not be used for Glucos e determination. Draw a venous Glucose and send to the main Lab for analysis. POC [id number] 07:41:32 Test Item Value Reference Range Interpretation Comments Glucose POC (test 206 mg/dL 70-115 H Notify RN or MDIf you code = Glucose POC) consider your patient critically ill, the [employer]-Accu Chec k Infrom II meter should not be used for Glucos e determination. Draw a venous Glucose and send to the main Lab for analysis. Urinalysis [id number] 21:07:21 Test Item Value Reference Range Interpretation Comments UA WBC (test code = UA WBC) TNTC 0-5 A UA RBC (test code = UA RBC) 6-10 0-5 A UA Bacteria (test code = UA Bacteria) Profuse A UA Squam Epithelial (test code = UA 6-10 A Squam Epithelial) Urinalysis with Culture, if skxggokkz0616-15-12 20:35:14 Test Item Value Reference Range Interpretation [...] Micro Indicated Not Indicated A Ind?) POC [id number] 19:06:34 Test Item Value Reference Range Interpretation Comments Glucose POC (test 207 mg/dL 70-115 H If you con grinder your code = Glucose POC) patient critically ill, the Merlin-Accu Check Infrom II meter should not be used for Glucose determination. Draw a venous Glucose and send to the main Lab for analysis. POC [id number] 17:12:03 Test Item Value Reference Range Interpretation Comments Glucose POC (test 173 mg/dL 70-115 H Notify RN or MDIf you code = Glucose POC) consider your patient critically ill, the [employer]-Accu Che[employer] k Infrom II meter should not be used for Glucos e determination. Draw a venous Glucose and send to the main Lab for analysis. POC [id number] 11:58:01 Test Item Value Reference Range Interpretation Comments Glucose POC (test 289 mg/dL 70-115 H Notify RN or MDIf you code = Glucose POC) consider your patient critically ill, the [employer]-Accu Chec k Infrom II meter should not be used for Glucos e determination. Draw a venous Glucose and send to the main Lab for analysis. POC [id number] 08:19:37 Test Item Value Reference Range Interpretation Comments Glucose POC (test 201 mg/dL 70-115 H Notify RN or MDIf you code = Glucose POC) consider your patient critically ill, the [employer]u Che[employer] k Infrom II meter should not be used for Glucos e determination. Draw a venous Glucose and send to the main Lab for analysis. POC [id number] 20:37:35 Test Item Value Reference Range Interpretation Comments Glucose POC (test 272 mg/dL 70-115 H If you con grinder your code = Glucose POC) patient critically ill, the Merlin-Accu Check Infrom II meter should not be used for Glucose determination. Draw a venous Glucose and send to the main Lab for analysis. POC [id number] 17:23:05 Test Item Value Reference Range Interpretation Comments Glucose POC (test 229 mg/dL 70-115 H If you con grinder your code = Glucose POC) patient critically ill, the Merlin-Accu Check Infrom II meter should not be used for Glucose determination. Draw a venous Glucose and send to the main Lab for analysis. POC [id number] 12:01:01 Test Item Value Reference Range Interpretation Comments Glucose POC (test 155 mg/dL 70-115 H If you con grinder your code = Glucose POC) patient critically ill, the Merlni-Accu Check Infrom II meter should not be used for Glucose determination. Draw a venous Glucose and send to the main Lab for analysis. POC [id number] 08:07:32 Test Item Value Reference Range Interpretation Comments Glucose POC (test 248 mg/dL 70-115 H If you con grinder your code = Glucose POC) patient critically ill, the Merlin-Accu Check Infrom II meter should not be used for Glucose determination. Draw a venous Glucose and send to the main Lab for analysis. IG [id number] 06:50:39 Test Item Value Reference Range Interpretation Comments IG (test code = IG) 0.7 % 0.0-5.0 IG Abs (test code = IG Abs) 0 x10 N Complete Blood Count with [id number] 06:50:38 Test Item Value Reference Range Interpretation [...] code = IPF) 0 % N Automated [id number] 06:50:38 Test Item Value Reference Range Interpretation Comments Neutro Auto (test code = Neutro 50.3 % 36.0-70.0 Auto) Lymph Auto (test code = Lymph Auto) 38.6 % 12.0-44.0 Ritchie Auto (test code = Ritchie Auto) 7.3 % 0.0-11.0 Eos, Auto (test code = Eos, Auto) 2.4 % 0.0-7.0 Basophil Auto (test code = Basophil 0.7 % 0.0-2.0 Auto) Neutro Absolute (test code = Neutro 3.0 x10 1.6-7.4 Absolute) Lymph Absolute (test code = Lymph 2.28 x10 .50-4.60 Absolute) Ritchie Absolute (test code = Ritchie .43 x10 .00-1.20 Absolute) Eos Absolute (test code = Eos 0.14 x10 0.00-0.74 Absolute) Baso Absolute (test code = Baso 0.04 x10 0.00-0.21 Absolute) Basic Metabolic [id number] 05:38:20 Test Item Value Reference Range Interpretation [...] = Lipemia) 0 mg/dL 8-11 Basic Metabolic [id number] 05:38:20 Test Item Value Reference Range Interpretation [...] = 0 mg/dL 8-11 Lipemia) Basic Metabolic [id number] 05:38:20 Test Item Value Reference Range Interpretation [...] ag e have not been validated by [facility] MDRD study and should be interpreted wit [...] ag e have not been validated by [facility] MDRD study and should be interpreted wit [...] code = 0 mg/dL 8-11 Lipemia) POC [id number] 20:28:33 Test Item Value Reference Range Interpretation Comments Glucose POC (test 169 mg/dL 70-115 H If you con grinder your code = Glucose POC) patient critically ill, the Merlin-Accu Check Infrom II meter should not be used for Glucose determination. Draw a venous Glucose and send to the main Lab for analysis. POC [id number] 16:39:30 Test Item Value Reference Range Interpretation Comments Glucose POC (test 103 mg/dL 70-115 If you con grinder your code = Glucose POC) patient critically ill, the Merlin-Accu Check Infrom II meter should not be used for Glucose determination. Draw a venous Glucose and send to the main Lab for analysis. RPR [id number] 12:08:56 Test Item Value Reference Range Interpretation Comments RPR Qual (test code = RPR Qual) Non-Reactive Non-Reactive Reactive Control (test code = Reactive Reactive Control) Weak Reactive Control (test Weak Reactive code = Weak Reactive Control) Non-Reactive Control (test code Non-Reactive = Non-Reactive Control) Lot # (test code = Lot #) [id number] N Expiration Dt (test code = 03-20-2021 N Expiration Dt) POC [id number] 11:52:31 Test Item Value Reference Range Interpretation Comments Glucose POC (test 250 mg/dL 70-115 H If you con grinder your code = Glucose POC) patient critically ill, the Merlin-Accu Check Infrom II meter should not be used for Glucose determination. Draw a venous Glucose and send to the main Lab for analysis. POC [id number] 07:55:29 Test Item Value Reference Range Interpretation Comments Glucose POC (test 205 mg/dL 70-115 H If you con grinder your code = Glucose POC) patient critically ill, the Merlin-Accu Check Infrom II meter should not be used for Glucose determination. Draw a venous Glucose and send to the main Lab for analysis. Lipid [id number] 05:46:04 Test Item Value Reference Range Interpretation [...] LDL/HDL Ratio=L DL Calc/HDL Chol Thyroid Stimulating [id number] 05:46:04 Test Item Value Reference Range Interpretation Comments TSH (test code = TSH) 3.274 mcIU/mL 0.550-4.780 Hemoglobin [id number] 05:41:08 Test Item Value Reference Range Interpretation Comments Hemoglobin A1c (test code 7.6 % 4.0-5.8 H Di abetic >=6.5 = Hemoglobin A1c) %Prediabet es 5.7-6.4 %Normal <5.7 % Hepatitis B Surface [id number] 21:19:36 Test Item Value Reference Range Interpretation Comments Hep Bs Ag (test code = Hep Bs Non-Reactive Non-Reactive Ag) Novel Coronavirus SARS-CoV-2, [id number] 11:16:16 Test Item Value Reference Range Interpretation [...] Emergency Use Authorization." Novel Coronavirus (COVID-19), EMANUEL [id number] 11:11:24TNPTest not sent and performed at [facility].Rapid was perfomed in Microbiology.Wrong covid test was ord ered.Urine DOA [id number] 00:17:49 Test Item Value Reference Range Interpretation [...] Propoxyphene Confirmation wi thin 7 days. Alcohol [id number] 00:17:29 Test Item Value Reference Range Interpretation Comments Ethanol Level 9.0 mg/dL N The pharmacolo gical (test code = response to blo od alcohol Ethanol Level) levels may va ry from individual to i ndividual. The fatal omkar ntration has been report ed to be >400 mg/dl. Comprehensive Metabolic [id number] 00:17:28 Test Item Value Reference Range Interpretation [...] = Lipemia) 0 g/dL 1-2 Comprehensive Metabolic [id number] 00:17:28 Test Item Value Reference Range Interpretation [...] = 0 g/dL 1-2 Lipemia) Comprehensive Metabolic [id number] 00:17:28 Test Item Value Reference Range Interpretation [...] g/dL 1-2 Lipemia) Complete Blood Count with Zntnsrbzhidn9737-32-90 23:26:28 Test Item Value Reference Range Interpretation [...] code = IPF) 0 % N Automated [id number] 23:26:28 Test Item Value Reference Range Interpretation Comments Neutro Auto (test code = Neutro 67.1 % 36.0-70.0 Auto) Lymph Auto (test code = Lymph Auto) 23.3 % 12.0-44.0 Ritchie Auto (test code = Ritchie Auto) 5.8 % 0.0-11.0 Eos, Auto (test code = Eos, Auto) 2.3 % 0.0-7.0 Basophil Auto (test code = Basophil 0.8 % 0.0-2.0 Auto) Neutro Absolute (test code = Neutro 6.0 x10 1.6-7.4 Absolute) Lymph Absolute (test code = Lymph 2.10 x10 .50-4.60 Absolute) Ritchie Absolute (test code = Ritchie .52 x10 .00-1.20 Absolute) Eos Absolute (test code = Eos 0.21 x10 0.00-0.74 Absolute) Baso Absolute (test code = Baso 0.07 x10 0.00-0.21 Absolute) IG [id number] 23:26:28 Test Item Value Reference Range Interpretation Comments IG (test code = IG) 0.7 % 0.0-5.0 IG Abs (test code = IG Abs) 0 x10 N HERPES VIRUS ANTIBODY, [id number] 21:46:00 Test Item Value Reference Range Interpretation Comments HERPES VIRUS IGM (BEAKER) Negative SE E ATTACHMENT (test code = 1808) BLOOD [id number] 06:00:00 Test Item Value Reference Range Interpretation Comments CULTURE (BEAKER) (test No growth in 5 days code = 1095) BLOOD [id number] 06:00:00 Test Item Value Reference Range Interpretation Comments CULTURE (BEAKER) (test No growth in 5 days code = 1095) POCT-GLUCOSE [id number] 12:11:00 Test Item Value Reference Range Interpretation Comments POC-GLUCOSE METER 154 mg/dL 70-110 H TESTED AT [facility] 6720 (BEAKER) (test code = [place] 1538) [address] POCT-GLUCOSE [id number] 07:53:00 Test Item Value Reference Range Interpretation Comments POC-GLUCOSE METER 87 mg/dL 70-110 TESTED AT [facility] 6720 (BEAKER) (test code = [place] [facility] [address] 1538) POCT-GLUCOSE [id number] 06:49:00 Test Item Value Reference Range Interpretation Comments POC-GLUCOSE METER 79 mg/dL 70-110 [facility] 67[facility] (test code = [facility] [place] [facility] [address] 1538) COMPREHENSIVE METABOLIC [id number] 06:15:00 Test Item Value Reference Range Interpretation [...] S NOT APPLICABLE FOR DIALYSIS PATIEN TS. [id number] 06:11:00 Test Item Value Reference Range Interpretation Comments MAGNESIUM (BEAKER) (test code = 2.1 mg/dL 1.6-2.6 627) HEPATIC FUNCTION [id number] 06:11:00 Test Item Value Reference Range Interpretation [...] code = 513 U/L 6-55 H 347) [id number] 05:30:00 Test Item Value Reference Range Interpretation Comments FIBRINOGEN LEVEL (BEAKER) (test 368 mg/dl 225-434 code = 658) [id number] 05:30:00 Test Item Value Reference Range Interpretation Comments PARTIAL THROMBOPLASTIN TIME 42.2 seconds 22.5-36.0 H (BEAKER) (test code = 760) PROTHROMBIN [id number] 05:29:00 Test Item Value Reference Range Interpretation Comments PROTIME (BEAKER) (test code = 14.8 seconds 11.7-14.7 H 759) INR (BEAKER) (test code = 370) 1.2 <=5.9 RECOMMENDED COUMADIN/WARFARIN INR THERAPY RANGESSTANDARD DOSE: 2.0 - 3.0 Includes: PROPHYLAXIS for venous thrombosis, systemic embolization; TREATMENT for venous thrombosis and/or pulmonary embolus.HIGH RISK: Target INR is 2.5-3.5 for patients with mechanical heart valves.POCT-GLUCOSE [id number] 21:09:00 Test Item Value Reference Range Interpretation Comments POC-GLUCOSE METER 178 mg/dL 70-110 H TESTED AT [facility] 67 ([facility]) (test code = [place] 1538) [address] POCT-GLUCOSE [id number] 17:18:00 Test Item Value Reference Range Interpretation Comments POC-GLUCOSE METER 178 mg/dL 70-110 H TESTED AT [place] [address] ([facility]) (test code = [facility] 1538) [address] POCT-GLUCOSE [id number] 13:48:00 Test Item Value Reference Range Interpretation Comments POC-GLUCOSE METER 150 mg/dL 70-110 H TESTED AT [place] [address] ([facility]) (test code = [facility] 1538) [address] FACTOR 5 ACTIVITY (BLEEDING RISK)2017-01-06 10:04:00 Test Item Value Reference Range Interpretation Comments FACTOR V ACTIVITY ([facility]) (test code 90.0 % 60.0-150.0 = 665) Effective 10/24/2013: Reference Range Change-Adult onlyNew: 60.0-150.0 Previous: 50.0-150.0CYTOMEGALOVIRUS ANTIBODY, [id number] 09:42:00 Test Item Value Reference Range Interpretation Comments CYTOMEGALOVIRUS IGM ANTIBODY Negative ([facility]) (test code = 816) HERPES VIRUS ANTIBODY, [id number] 08:59:00 Test Item Value Reference Range Interpretation Comments 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[facility]) (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 G 1807) CYTOMEGALOVIRUS ANTIBODY, [id number] 08:59:00 Test Item Value Reference Range Interpretation Comments CYTOMEGALOVIRUS IGG ANTIBODY Positive ([facility]) (test code = 790) EBV-VCA ANTIBODY, [id number] 08:59:00 Test Item Value Reference Range Interpretation Comments JASE-WALL VCA IGG ([facility]) (test Positive code = 983) EBV-VCA ANTIBODY, [id number] 08:59:00 Test Item Value Reference Range Interpretation Comments JASE-WALL VCA IGM ([facility]) (test Negative code = 984) POCT-GLUCOSE [id number] 07:59:00 Test Item Value Reference Range Interpretation Comments POC-GLUCOSE METER 81 mg/dL 70-110 TESTED AT [facility] 6720 ([facility]) (test code = [facility] [address] 1538) COMPREHENSIVE METABOLIC [id number] 06:23:00 Test Item Value Reference Range Interpretation [...] S NOT APPLICABLE FOR DIALYSIS PATIEN TS. [id number] 06:17:00 Test Item Value Reference Range Interpretation Comments MAGNESIUM (BEAKER) (test code = 1.8 mg/dL 1.6-2.6 627) HEPATIC FUNCTION [id number] 06:17:00 Test Item Value Reference Range Interpretation [...] code = 779 U/L 6-55 H 347) [id number] 06:00:00 Test Item Value Reference Range Interpretation Comments FIBRINOGEN LEVEL (BEAKER) (test 390 mg/dl 225-434 code = 658) [id number] 06:00:00 Test Item Value Reference Range Interpretation Comments PARTIAL THROMBOPLASTIN TIME 40.2 seconds 22.5-36.0 H (BEAKER) (test code = 760) PROTHROMBIN [id number] 05:59:00 Test Item Value Reference Range Interpretation Comments [facility]IME [facility] (test code = 14.6 seconds 11.7-14.7 759) INR ([facility]) (test code = 370) 1.2 <=5.9 RECOMMENDED COUMADIN/WARFARIN INR THERAPY RANGESSTANDARD DOSE: 2.0 - 3.0 Includes: PROPHYLAXIS for venous thrombosis, systemic embolization; TREATMENT for venous thrombosis and/or pulmonary embolus.HIGH RISK: Target INR is 2.5-3.5 for patients with mechanical heart valves.POCT-GLUCOSE [id number] 21:46:00 Test Item Value Reference Range Interpretation Comments POC-GLUCOSE METER 153 mg/dL 70-110 H TESTED AT [place] [address] ([facility]) (test code = [place] [facility] 1538) [address] POCT-GLUCOSE [id number] 18:47:00 Test Item Value Reference Range Interpretation Comments POC-GLUCOSE METER 181 mg/dL 70-110 H TESTED AT [place] [address] ([facility]) (test code = [place] [facility] 1538) [address] POCT-GLUCOSE [id number] 12:40:00 Test Item Value Reference Range Interpretation Comments POC-GLUCOSE METER 178 mg/dL 70-110 H TESTED AT [place] [address] ([facility]) (test code = [place] [facility] 1538) [address] POCT-GLUCOSE [id number] 07:51:00 Test Item Value Reference Range Interpretation Comments POC-GLUCOSE METER 166 mg/dL 70-110 H TESTED AT [facility] 6720 (BEAKER) (test code = [place] 1538) [address] COMPREHENSIVE METABOLIC [id number] 03:26:00 Test Item Value Reference Range Interpretation [...] S NOT APPLICABLE FOR DIALYSIS PATIEN TS. [id number] 03:22:00 Test Item Value Reference Range Interpretation Comments MAGNESIUM (BEAKER) (test code = 1.4 mg/dL 1.6-2.6 L 627) HEPATIC FUNCTION [id number] 03:22:00 Test Item Value Reference Range Interpretation [...] code = 1009 U/L 6-55 H 347) [id number] 03:12:00 Test Item Value Reference Range Interpretation Comments AMMONIA (BEAKER) (test code = 348) 29 mol/L 18-72 [id number] 03:10:00 Test Item Value Reference Range Interpretation Comments PARTIAL THROMBOPLASTIN TIME 42.3 seconds 22.5-36.0 H (BEAKER) (test code = 760) PROTHROMBIN [id number] 03:09:00 Test Item Value Reference Range Interpretation Comments PROTIME (BEAKER) (test code = 16.4 seconds 11.7-14.7 H 759) INR (BEAKER) (test code = 370) 1.3 <=5.9 RECOMMENDED COUMADIN/WARFARIN INR THERAPY RANGESSTANDARD DOSE: 2.0 - 3.0 Includes: PROPHYLAXIS for venous thrombosis, systemic embolization; TREATMENT for venous thrombosis and/or pulmonary embolus.HIGH RISK: Target INR is 2.5-3.5 for patients with mechanical heart valves.[id number] 03:09:00 Test Item Value Reference Range Interpretation Comments FIBRINOGEN LEVEL (BEAKER) (test 413 mg/dl 225-434 code = 658) CBC W/PLT COUNT & AUTO [id number] 03:09:00 Test Item Value Reference Range Interpretation [...] L 0.00-0.20 (test code = 417) 0.00POCT-GLUCOSE [id number] 22:33:00 Test Item Value Reference Range Interpretation Comments POC-GLUCOSE METER 230 mg/dL 70-110 H TESTED AT [facility] 6720 (BEAKER) (test code = [place] 1538) [address] POCT-GLUCOSE [id number] 18:17:00 Test Item Value Reference Range Interpretation Comments POC-GLUCOSE METER 222 mg/dL 70-110 H TESTED AT [facility] 6720 (BEAKER) (test code = [place] [facility] 1538) [address] COMPREHENSIVE METABOLIC [id number] 16:59:00 Test Item Value Reference Range Interpretation [...] PATIEN TS. PERIPHERAL BLOOD SMEAR - PATHOLOGIST [id number] 15:30:00 Test Item Value Reference Range Interpretation Comments RBC MORPHOLOGY Polychromasia (BEAKER) (test code = 2846) RBC MORPHOLOGY Anisocytosis (BEAKER) (test code = 97024) PERIPHERAL SMR REVIEW Cell counts confirmed (MADIE) (test code = 2640) [id number] Josefina Lara M.D. ([facility]) (test code = (electronic signature) 5992) PROTHROMBIN [id number] 15:12:00 Test Item Value Reference Range Interpretation [...] Reference Range Interpretation Comments ANTI-NUCLEAR ANTIBODY (IVETTE) ([facility]) Negative Negative (test code = 418) POCT-GLUCOSE [id number] 12:47:00 Test Item Value Reference Range Interpretation Comments POC-GLUCOSE METER 212 mg/dL 70-110 H TESTED AT [facility] 6720 ([facility]) (test code = [place] 1538) [address] [id number] 12:34:00 Test Item Value Reference Range Interpretation Comments [facility] SCREEN [facility] (test code = Nonreactive Nonreactive 420) CLOSTRIDIUM DIFFICILE TOXIN [id number] 10:12:00 Test Item Value Reference Range Interpretation Comments CLOSTRIDIUM DIFFICILE TOXIN, PCR Not Detected Not Detected ([facility]) (test code = 1525) This qualitative real-time [...] Reference Range Change-Adult onlyNew: 60.0-150.0 Previous: 50.0-150.0POCT-GLUCOSE [id number] 06:40:00 Test Item Value Reference Range Interpretation Comments POC-GLUCOSE METER 167 mg/dL 70-110 H TESTED AT [facility] 6720 ([facility]) (test code = [place] 1538) [address] COMPREHENSIVE METABOLIC [id number] 04:08:00 Test Item Value Reference Range Interpretation [...] ESTIM ATED GFR. Specimen slightly ictericHEPATIC FUNCTION [id number] 04:06:00 Test Item Value Reference Range Interpretation [...] 1091 U/L 6-55 H 347) Specimen slightly [id number] 04:01:00 Test Item Value Reference Range Interpretation Comments FIBRINOGEN LEVEL (BEAKER) (test 379 mg/dl 225-434 code = 658) [id number] 04:01:00 Test Item Value Reference Range Interpretation Comments PARTIAL THROMBOPLASTIN TIME 40.7 seconds 22.5-36.0 H (BEAKER) (test code = 760) PROTHROMBIN [id number] 04:00:00 Test Item Value Reference Range Interpretation [...] mechanical heart valves.CBC W/PLT COUNT & AUTO [id number] 03:56:00 Test Item Value Reference Range Interpretation [...] L 0.00-0.20 (test code = 417) 0.00POCT-GLUCOSE [id number] 00:19:00 Test Item Value Reference Range Interpretation Comments POC-GLUCOSE METER 159 mg/dL 70-110 H TESTED AT [facility] 6720 (BEAKER) (test code = [facility] [place] 1538) [address] POCT-GLUCOSE [id number] 18:56:00 Test Item Value Reference Range Interpretation Comments POC-GLUCOSE METER 192 mg/dL 70-110 H TESTED AT [facility] 6720 (BEAKER) (test code = [facility] 1538) [address] COMPREHENSIVE METABOLIC [id number] 16:55:00 Test Item Value Reference Range Interpretation [...] CALCULATE ESTIM ATED GFR. Specimen slightly ictericPROTHROMBIN [id number] 16:37:00 Test Item Value Reference Range Interpretation Comments PROTIME (BEAKER) (test code = 20.9 seconds 11.7-14.7 H 759) INR (BEAKER) (test code = 370) 1.8 <=5.9 RECOMMENDED COUMADIN/WARFARIN INR THERAPY RANGESSTANDARD DOSE: 2.0 - 3.0 Includes: PROPHYLAXIS for venous thrombosis, systemic embolization; TREATMENT for venous thrombosis and/or pulmonary embolus.HIGH RISK: Target INR is 2.5-3.5 for patients with mechanical heart valves.HEPATITIS B SURFACE [id number] 14:05:00 Test Item Value Reference Range Interpretation Comments HEPATITIS B SURFACE ANTIBODY < mIU/mL <8.0 (BEAKER) (test code = 647) HEPATITIS B CORE ANTIBODY, [id number] 13:43:00 Test Item Value Reference Range Interpretation Comments HEPATITIS B CORE TOTAL ANTIBODY Nonreactive Nonreactive (BEAKER) (test code = 497) BLOOD GAS, [id number] 13:35:00 Test Item Value Reference Range Interpretation [...] code = 1819) 28.0 % URINALYSIS W/ [id number] 13:16:00 Test Item Value Reference Range Interpretation [...] 1584) SOURCE(BEAKER) (test code = Urine, [place] 6225) VITAMIN D, 38-[id number] 13:14:00 Test Item Value Reference Range Interpretation Comments VITAMIN D 25-OH (BEAKER) (test code = < ng/mL 13.0-47.8 L 2764) ALPHA FETOPROTEIN (AFP), TUMOR [id number] 13:06:00 Test Item Value Reference Range Interpretation Comments ALPHA-FETOPROTEIN (BEAKER) (test code < ng/mL <10.0 = 1094) Effective 05/08/2014: Reference Range ChangeNew: <10.0 Previous: 0.0-8.0 HEMOGLOBIN [id number] 13:05:00 Test Item Value Reference Range Interpretation Comments HEMOGLOBIN A1C (BEAKER) (test code = 7.6 % 4.3-6.1 H 368) CARCINOEMBRYONIC ANTIGEN (CEA)2017-01-03 12:59:00 Test Item Value Reference Range Interpretation Comments CARCINOEMBRYONIC ANTIGEN (BEAKER) 2.0 ng/mL 0.0-5.0 (test code = 685) [id number] 12:59:00 Test Item Value Reference Range Interpretation Comments FERRITIN (BEAKER) (test code = 1841 ng/mL 5-275 H 361) Effective 05/08/2014: Reference Range ChangeNew: Male 5-275 Previous: Male 22- 322 Female 5-275 Female [id number] 12:58:00 Test Item Value Reference Range Interpretation Comments T4 TOTAL (BEAKER) (test code = 895) 4.5 ug/dL 4.9-11.7 L [id number] 12:58:00 Test Item Value Reference Range Interpretation Comments THYROID STIMULATING HORMONE 1.79 uIU/mL 0.35-4.94 (BEAKER) (test code = 772) [id number] 12:58:00 Test Item Value Reference Range Interpretation Comments T3 TOTAL (BEAKER) (test code = 656) 34 ng/dL 48-159 L Effective 05/08/2014: Reference Range ChangeNew: 48-159 Previous: 60-181CALCIUM, [id number] 12:47:00 Test Item Value Reference Range Interpretation Comments CALCIUM IONIZED (BEAKER) (test 1.05 mmol/L 1.12-1.27 L code = 698) PH, BLOOD (BEAKER) (test code = 7.43 1810) [id number] 12:42:00 Test Item Value Reference Range Interpretation [...] % 20-55 (test code = 2590) URIC [id number] 12:40:00 Test Item Value Reference Range Interpretation Comments URIC ACID (BEAKER) (test code = 16.0 mg/dL 2.6-7.2 H 773) Specimen slightly ictericLIPID [id number] 12:40:00 Test Item Value Reference Range Interpretation [...] 160-189 Very High >=190 Specimen slightly ictericBILIRUBIN, [id number] 12:40:00 Test Item Value Reference Range Interpretation Comments BILIRUBIN DIRECT (BEAKER) (test 2.4 mg/dL 0.1-0.5 H code = 706) GAMMA GLUTAMYL TRANSFERASE (GGT)2017-01-03 12:40:00 Test Item Value Reference Range Interpretation Comments GAMMA GLUTAMYL TRANSFERASE (BEAKER) 53 U/L 9-64 (test code = 364) Specimen slightly [id number] 12:39:00 Test Item Value Reference Range Interpretation Comments ETHANOL (BEAKER) (test code = 400) < mg/dL <=10 SCREEN, [id number] 12:36:00 Test Item Value Reference Range Interpretation Comments TEST URINE (BEAKER) (test Negative code = 583) POCT-GLUCOSE [id number] 12:34:00 Test Item Value Reference Range Interpretation Comments POC-GLUCOSE METER 189 mg/dL 70-110 H TESTED AT [facility] 6720 (BEILIA[place]) (test code = [place] 1538) [address] HIV-1 ANTIGEN WITH HIV-1/2 [id number] 11:58:00 Test Item Value Reference Range Interpretation Comments HIV-1 ANTIGEN WITH HIV 1\\T\\2 Nonreactive Nonreactive ANTIBODY (2) (BEAKER) (test code = 2586) TROPONIN [id number] 09:44:00 Test Item Value Reference Range Interpretation [...] 0.0-4.9CK-MB Reference Range:<6.7 Normal6.7-10.0 Borderline>10.0 Abnormal ACETAMINOPHEN [id number] 08:31:00 Test Item Value Reference Range Interpretation Comments ACETAMINOPHEN LEVEL (BEAKER) (test < ug/mL 10.0-30.0 L code = 344) TROPONIN [id number] 05:53:00 Test Item Value Reference Range Interpretation [...] acute neurological disease, and persistent tachyarrhythmia.BASIC METABOLIC [id number] 05:53:00 Test Item Value Reference Range Interpretation [...] TO CALCULA TE ESTIMATED GFR. Specimen slightly [id number] 05:52:00 Test Item Value Reference Range Interpretation Comments PHOSPHORUS (BEAKER) (test code = 5.7 mg/dL 2.3-4.7 H 604) HEPATIC FUNCTION [id number] 05:52:00 Test Item Value Reference Range Interpretation [...] Specimen slightly ictericCREATINE KINASE (CK), TOTAL AND [id number] 05:52:00 Test Item Value Reference Range Interpretation Comments CREATINE KINASE TOTAL (BEAKER) 341 U/L 29-200 H (test code = 380) CREATINE KINASE-MB (BEAKER) (test 5.4 ng/mL 0.0-6.6 code = 750) CREATINE KINASE-MB INDEX (BEAKER) 1.6 % (test code = 395) Effective 05/08/2014: CK-MB Reference Range ChangeNew: 0.0-6.6 Previous: 0.0-4.9CK-MB Reference Range:<6.7 Normal6.7-10.0 Borderline>10.0 Abnormal CBC W/PLT COUNT & AUTO [id number] 05:48:00 Test Item Value Reference Range Interpretation [...] K/ L 0.00-0.20 (test code = 417) 0.28UYZCHKJQPM1226-28-82 05:09:00 Test Item Value Reference Range Interpretation Comments FIBRINOGEN LEVEL (BEAKER) (test 427 mg/dl 225-434 code = 658) [id number] 05:09:00 Test Item Value Reference Range Interpretation Comments PARTIAL THROMBOPLASTIN TIME 36.2 seconds 22.5-36.0 H (BEAKER) (test code = 760) PROTHROMBIN TIME/[id number] 05:08:00 Test Item Value Reference Range Interpretation Comments PROTIME (BEAKER) (test code = 22.8 seconds 11.7-14.7 H 759) INR (BEAKER) (test code = 370) 2.0 <=5.9 RECOMMENDED COUMADIN/WARFARIN INR THERAPY RANGESSTANDARD DOSE: 2.0 - 3.0 Includes: PROPHYLAXIS for venous thrombosis, systemic embolization; TREATMENT for venous thrombosis and/or pulmonary embolus.HIGH RISK: Target INR is 2.5-3.5 for patients with mechanical heart valves.HEPATITIS PANEL, [id number] 03:40:00 Test Item Value Reference Range Interpretation Comments HEPATITIS A IGM ANTIBODY (BEAKER) Nonreactive Nonreactive (test code = 498) HEPATITIS B CORE IGM ANTIBODY Nonreactive Nonreactive (BEAKER) (test code = 645) HEPATITIS C ANTIBODY (BEAKER) Nonreactive Nonreactive (test code = 367) HEPATITIS B SURFACE ANTIGEN (2) Nonreactive Nonreactive (BEAKER) (test code = 2585) CREATININE, RANDOM [id number] 03:18:00 Test Item Value Reference Range Interpretation Comments CREATININE URINE (BEAKER) (test 118.7 mg/dL code = 375) Reference Range: No NormalsSODIUM, RANDOM [id number] 03:18:00 Test Item Value Reference Range Interpretation Comments SODIUM URINE (BEAKER) (test code = 60 meq/L 243) Reference Range: No NormalsUREA NITROGEN, RANDOM [id number] 03:18:00 Test Item Value Reference Range Interpretation Comments UREA NITROGEN URINE (BEAKER) (test 303 mg/dL code = 538) Reference Range: No [id number] 03:07:00 Test Item Value Reference Range Interpretation Comments AMMONIA (BEAKER) (test code = 348) 48 mol/L 18-72 X-[id number] 02:57:00 Test Item Value Reference Range Interpretation [...] within 95-100% range. URINALYSIS W/ REFLEX URINE [id number] 02:53:00 Test Item Value Reference Range Interpretation [...] = 514) SOURCE(BEAKER) (test code = 2795) [id number] 02:49:00 Test Item Value Reference Range Interpretation Comments PARTIAL THROMBOPLASTIN TIME 39.4 seconds 22.5-36.0 H (BEAKER) (test code = 760) PROTHROMBIN TIME/[id number] 02:48:00 Test Item Value Reference Range Interpretation Comments PROTIME (BEAKER) (test code = 22.0 seconds 11.7-14.7 H 759) INR (BEAKER) (test code = 370) 1.9 <=5.9 RECOMMENDED COUMADIN/WARFARIN INR THERAPY RANGESSTANDARD DOSE: 2.0 - 3.0 Includes: PROPHYLAXIS for venous thrombosis, systemic embolization; TREATMENT for venous thrombosis and/or pulmonary embolus.HIGH RISK: Target INR is 2.5-3.5 for patients with mechanical heart valves.[id number] 02:48:00 Test Item Value Reference Range Interpretation Comments FIBRINOGEN LEVEL (BEAKER) (test 421 mg/dl 225-434 code = 658) BLOOD GAS, [id number] 02:43:00 Test Item Value Reference Range Interpretation [...] 21.0 % CBC W/PLT COUNT & AUTO [id number] 02:43:00 Test Item Value Reference Range Interpretation [...] code = 417) 0.00LACTIC ACID, VENOUS, WHOLE [id number] 02:35:00 Test Item Value Reference Range Interpretation Comments LACTATE BLOOD VENOUS (2) (BEAKER) 0.8 mmol/L 0.5-2.2 (test code = 2872) Effective 10/23/2015: Units/Reference Range ChangeNew: 0.5-2.2 mmol/L Previous: 5- 20 mg/dLSpecimen slightly sybzkhxXDSNJLZXPTZL7246-31-76 11:32:00 Test Item Value Reference Range Interpretation Comments AGAP (test code = AGAP) 14.6 10.0-20.0 [facility]BwcymobTFBCLMTRJWSU9757-81-54 11:32:00 Test Item Value Reference Range Interpretation Comments eGFR (test code = eGFR) 33 [facility] HospitalIraysidVKJWDNXVYZDX8523-44-93 11:32:00 Test Item Value Reference Range Interpretation Comments Calcium Lvl (test code = Calcium Lvl) 8.3 8.5-10.5 [facility] HospitalPjsgwyhSFSWSGKNKMAP3542-18-02 11:32:00 Test Item Value Reference Range Interpretation Comments Glucose Lvl (test code = Glucose Lvl) 81 70-99 [facility] HospitalSqvwkiyGUVLCRMJJPZL7366-64-27 11:32:00 Test Item Value Reference Range Interpretation Comments Creatinine Lvl (test code = Creatinine 1.95 0.50-1.40 Lvl) [facility] HospitalVibykxwJFVQNEQSZUBV9386-20-30 11:32:00 Test Item Value Reference Range Interpretation Comments BUN (test code = BUN) 55 7-22 [facility] HospitalAsrkkckPWIDRVQUSBWQ6937-19-44 11:32:00 Test Item Value Reference Range Interpretation Comments CO2 (test code = CO2) 19 24-32 [facility] HospitalEyazyqxFRRFBTTOAUBC7996-38-27 11:32:00 Test Item Value Reference Range Interpretation Comments Chloride Lvl (test code = Chloride Lvl) 110 95-109 [facility] HospitalIyfpsujHONZTOMAZWJK3984-62-99 11:32:00 Test Item Value Reference Range Interpretation Comments Sodium Lvl (test code = Sodium Lvl) 139 135-145 [facility]WsnasxrOYIITISPFSIZ3031-38-71 11:32:00 Test Item Value Reference Range Interpretation Comments Potassium Lvl (test code = Potassium 4.6 3.5-5.1 Lvl) [facility] HospitalOfelwwpVTKCBNEKTM2860-10-88 11:32:00 Test Item Value Reference Range Interpretation Comments Lymphocytes (test code = Lymphocytes) 30.4 20.0-40.0 [facility] HospitalXvfrhvlPPNVBOSAOW8258-50-09 11:32:00 Test Item Value Reference Range Interpretation Comments Eosinophils (test code = 4.5 See_Comment [A utomated message] The Eosinophils) system which ge nerated this result tra nsmitted reference range : <=4.0. The reference r leo was not used to int erpret this result as normal/abnormal . [facility] HospitalOtipxeqEVPEBJGAEA1003-33-31 11:32:00 Test Item Value Reference Range Interpretation Comments Monocytes (test code = Monocytes) 13.7 2.0-12.0 [facility] HospitalMdvlzfbCUHFYVJSAO1646-67-94 11:32:00 Test Item Value Reference Range Interpretation Comments Segs-Bands # (test code = Segs-Bands #) 2.6 1.5-8.1 [facility] HospitalXkpsjmnSYXAVLTHTX7931-20-34 11:32:00 Test Item Value Reference Range Interpretation Comments Basophils (test code = 0.7 See_Comment [Aut omated message] The Basophils) system which ge nerated this result tra nsmitted reference range : <=1.0. The reference r leo was not used to int erpret this result as normal/abnormal . [facility] HospitalTgctzrmBNCDQRCZGD3688-23-80 11:32:00 Test Item Value Reference Range Interpretation Comments Monocytes # (test code 0.7 See_Comment [Aut omated message] The = Monocytes #) system which generated this result tra nsmitted reference range : <=0.8. The reference r leo was not used to int erpret this result as normal/abnormal . [facility] HospitalYbovwiqZEJOUKPTSN8589-88-65 11:32:00 Test Item Value Reference Range Interpretation Comments Lymphocytes # (test code = Lymphocytes 1.6 1.0-5.5 #) [facility] HospitalHkrnevhCWFJCJBIFA5713-31-21 11:32:00 Test Item Value Reference Range Interpretation Comments Eosinophils # (test code 0.2 See_Comment [A utomated message] The = Eosinophils #) system [employer] generated this result tra nsmitted reference range : <=0.5. The reference r leo was not used to int erpret this result as normal/abnormal . [facility] HospitalItayiguTLLFWRMPPU5048-00-97 11:32:00 Test Item Value Reference Range Interpretation Comments Segs (test code = Segs) 50.7 45.0-75.0 [facility] HospitalEeozvqqVCPZUXRIAB9473-69-57 11:32:00 Test Item Value Reference Range Interpretation [...] iron deficiency anemia, and renal disease. CPT: 51869 [facility] HospitalLkohkhdJHFIHWPQWZ5054-37-88 11:32:00 Test Item Value Reference Range Interpretation Comments Hct (test code = Hct) 28.1 36.0-48.0 [facility] HospitalUbccbvvMRDMSLWLIT5755-40-95 11:32:00 Test Item Value Reference Range Interpretation Comments RBC (test code = RBC) 3.39 4.20-5.40 [facility] HospitalPtcdeyzERKMELTHSA5335-41-98 11:32:00 Test Item Value Reference Range Interpretation Comments Hgb (test code = Hgb) 8.9 12.0-16.0 [facility] HospitalJnftajiSIBBTVDQLI7073-12-85 11:32:00 Test Item Value Reference Range Interpretation Comments WBC (test code = WBC) 5.1 3.7-10.4 [facility] HospitalZjzwuigIFMHAMYVIX0916-30-22 11:32:00 Test Item Value Reference Range Interpretation Comments MPV (test code = MPV) 11.3 7.4-10.4 [facility] HospitalKuqcfzvGGSQMZYBMF1524-27-02 11:32:00 Test Item Value Reference Range Interpretation Comments Platelet (test code = Platelet) 118 133-450 [facility] HospitalNwoaiyqSOZPWBGRGK6839-47-93 11:32:00 Test Item Value Reference Range Interpretation Comments MCHC (test code = MCHC) 31.8 32.0-36.0 [facility] HospitalUhflaeeFZGTEAAFQS3558-85-53 11:32:00 Test Item Value Reference Range Interpretation Comments RDW (test code = RDW) 18.0 11.5-14.5 [facility] HospitalTmxehnkAZCWYTDITW1424-00-57 11:32:00 Test Item Value Reference Range Interpretation Comments MCV (test code = MCV) 83.0 80.0-98.0 [facility] HospitalRiwgoggEQQJTJPUXY3545-97-76 11:32:00 Test Item Value Reference Range Interpretation Comments MCH (test code = MCH) 26.4 pg 27.0-31.0 [facility]dbefzsZSPKLTTFGH9211-85-61 11:32:00 Test Item Value Reference Range Interpretation Comments C3 Complement (test code = C3 137 88-201 Complement) [facility] HospitalUchemsmUDEJVKTNKY8417-09-96 11:32:00 Test Item Value Reference Range Interpretation Comments HIV. (test code = Negative *NA*(07/30/16 HIV.) 5:32 AM) [facility] HospitalDzzjvezNPOFGHUTIKLB3784-15-14 11:32:00 Test Item Value Reference Range Interpretation Comments AGAP (test code = AGAP) 14.6 10.0-20.0 [facility] HospitalNzzquzoDSLIINUBDQCN7701-15-61 11:32:00 Test Item Value Reference Range Interpretation Comments eGFR (test code = eGFR) 33 [facility] HospitalYsuqcodGADEWQBFOOUV9579-61-35 11:32:00 Test Item Value Reference Range Interpretation Comments Calcium Lvl (test code = Calcium Lvl) 8.3 8.5-10.5 [facility] HospitalZaemzftXEIZFMKZXUXV3119-29-75 11:32:00 Test Item Value Reference Range Interpretation Comments Glucose Lvl (test code = Glucose Lvl) 81 70-99 [facility] HospitalVtlsqxuZPYTQVVXAIZS0434-32-33 11:32:00 Test Item Value Reference Range Interpretation Comments Creatinine Lvl (test code = Creatinine 1.95 0.50-1.40 Lvl) [facility] HospitalDrdzvafJFIIHFNQDIKI9844-05-52 11:32:00 Test Item Value Reference Range Interpretation Comments BUN (test code = BUN) 55 7-22 [facility] HospitalFrqohfhBIIAKLHDHUST3692-99-77 11:32:00 Test Item Value Reference Range Interpretation Comments CO2 (test code = CO2) 19 24-32 [facility] HospitalPzsfozuYRVGFTVEEYMH5283-91-77 11:32:00 Test Item Value Reference Range Interpretation Comments Chloride Lvl (test code = Chloride Lvl) 110 95-109 [facility] HospitalDbyotuqQQAFAVKRCTFI5091-81-87 11:32:00 Test Item Value Reference Range Interpretation Comments Sodium Lvl (test code = Sodium Lvl) 139 135-145 [facility] HospitalEeoiesdOCODQNDCIFSS1685-31-60 11:32:00 Test Item Value Reference Range Interpretation Comments Potassium Lvl (test code = Potassium 4.6 3.5-5.1 Lvl) [facility] HospitalYgrdapnVCVYNNOWIU1940-55-19 11:32:00 Test Item Value Reference Range Interpretation Comments Lymphocytes (test code = Lymphocytes) 30.4 20.0-40.0 [facility] HospitalXclwxddWJSHRIBGHB3009-84-80 11:32:00 Test Item Value Reference Range Interpretation Comments Eosinophils (test code = 4.5 See_Comment [A utomated message] The Eosinophils) system which ge nerated this result tra nsmitted reference range : <=4.0. The reference r leo was not used to int erpret this result as normal/abnormal . [facility] HospitalIiukvemYWPMJORADP0977-97-38 11:32:00 Test Item Value Reference Range Interpretation Comments Monocytes (test code = Monocytes) 13.7 2.0-12.0 [facility] HospitalHnthsgsUPJVCDQOIE6279-01-42 11:32:00 Test Item Value Reference Range Interpretation Comments Segs-Bands # (test code = Segs-Bands #) 2.6 1.5-8.1 [facility] HospitalAdupffmDTBNHPBSNB0570-78-78 11:32:00 Test Item Value Reference Range Interpretation Comments Basophils (test code = 0.7 See_Comment [Aut omated message] The Basophils) system which ge nerated this result tra nsmitted reference range : <=1.0. The reference r leo was not used to int erpret this result as normal/abnormal . [facility] HospitalLoaunecFXKXBSMSNT8830-88-07 11:32:00 Test Item Value Reference Range Interpretation Comments Monocytes # (test code 0.7 See_Comment [Aut omated message] The = Monocytes #) system which generated this result tra nsmitted reference range : <=0.8. The reference r leo was not used to int erpret this result as normal/abnormal . [facility] HospitalTmmjiqzUCFZPKJCHQ9172-68-32 11:32:00 Test Item Value Reference Range Interpretation Comments Lymphocytes # (test code = Lymphocytes 1.6 1.0-5.5 #) [facility] HospitalEsjqnkcHMIAYPVYKN8884-32-82 11:32:00 Test Item Value Reference Range Interpretation Comments Eosinophils # (test code 0.2 See_Comment [A utomated message] The = Eosinophils #) system [employer] generated this result tra nsmitted reference range : <=0.5. The reference r leo was not used to int erpret this result as normal/abnormal . [facility] HospitalOrlfyshHRHGCVGAWR6593-36-15 11:32:00 Test Item Value Reference Range Interpretation Comments Segs (test code = Segs) 50.7 45.0-75.0 [facility] HospitalMurdchkEPDPBGUTZR1035-86-61 11:32:00 Test Item Value Reference Range Interpretation [...] iron deficiency anemia, and renal disease. CPT: 51819 [facility] HospitalXanockgYBVZQGLJSF1740-58-64 11:32:00 Test Item Value Reference Range Interpretation Comments Hct (test code = Hct) 28.1 36.0-48.0 [place] 636897-02-09 11:32:00 Test Item Value Reference Range Interpretation Comments RBC (test code = RBC) 3.39 4.20-5.40 [facility] HospitalJasvegmVFZRGGUSZU0394-69-02 11:32:00 Test Item Value Reference Range Interpretation Comments Hgb (test code = Hgb) 8.9 12.0-16.0 [facility] HospitalOdluygnCJANXIGALT6664-03-16 11:32:00 Test Item Value Reference Range Interpretation Comments WBC (test code = WBC) 5.1 3.7-10.4 [facility] HospitalEvuvhxhXUKSXQQXLY4095-87-43 11:32:00 Test Item Value Reference Range Interpretation Comments MPV (test code = MPV) 11.3 7.4-10.4 [facility] HospitalRbsreqkCLPMSEACUV9924-11-63 11:32:00 Test Item Value Reference Range Interpretation Comments Platelet (test code = Platelet) 118 133-450 [facility] HospitalJewdeeiHELABQGWRK9721-32-78 11:32:00 Test Item Value Reference Range Interpretation Comments MCHC (test code = MCHC) 31.8 32.0-36.0 [facility] HospitalHeyrsdtTCGWGGDWBO3175-68-97 11:32:00 Test Item Value Reference Range Interpretation Comments RDW (test code = RDW) 18.0 11.5-14.5 [facility] HospitalTxnucloJEVHAJVJCB9702-68-29 11:32:00 Test Item Value Reference Range Interpretation Comments MCV (test code = MCV) 83.0 80.0-98.0 [facility] HospitalTilyxruSDWIVNSWPG4873-00-40 11:32:00 Test Item Value Reference Range Interpretation Comments MCH (test code = MCH) 26.4 pg 27.0-31.0 [facility] HospitalCnspnbvICDZQLMMZN5781-97-32 11:32:00 Test Item Value Reference Range Interpretation Comments C3 Complement (test code = C3 137 88-201 Complement) [facility] HospitalYqtixllAQBVBGYWVV2220-42-99 11:32:00 Test Item Value Reference Range Interpretation Comments HIV. (test code = Negative *NA*(07/30/16 HIV.) 5:32 AM) [facility] HospitalTxqcfofFIXDPYTNGVLH3130-99-48 11:32:00 Test Item Value Reference Range Interpretation Comments AGAP (test code = AGAP) 14.6 10.0-20.0 [facility] HospitalArseoydTQLBWKDXLWBW1038-03-37 11:32:00 Test Item Value Reference Range Interpretation Comments eGFR (test code = eGFR) 33 [facility] HospitalCrtcluoHJJCSOESDZRI7997-02-27 11:32:00 Test Item Value Reference Range Interpretation Comments Calcium Lvl (test code = Calcium Lvl) 8.3 8.5-10.5 [facility] HospitalCdkzsqzIUXBSRTQPCLH1831-99-33 11:32:00 Test Item Value Reference Range Interpretation Comments Glucose Lvl (test code = Glucose Lvl) 81 70-99 [facility] HospitalZzmvrrdRNOHLSZPMLGA5284-07-12 11:32:00 Test Item Value Reference Range Interpretation Comments Creatinine Lvl (test code = Creatinine 1.95 0.50-1.40 Lvl) [facility] HospitalKuyuwgtHLDDUNBYXNDF8765-50-70 11:32:00 Test Item Value Reference Range Interpretation Comments BUN (test code = BUN) 55 7-22 [facility] HospitalRvgnbvpNMAVPSJSRJRA8309-74-88 11:32:00 Test Item Value Reference Range Interpretation Comments CO2 (test code = CO2) 19 24-32 [facility] HospitalDutwotnCBIBYUXQOPJZ4802-46-72 11:32:00 Test Item Value Reference Range Interpretation Comments Chloride Lvl (test code = Chloride Lvl) 110 95-109 [facility] HospitalOzsmzsbAGXLRJJAXCMO2003-78-10 11:32:00 Test Item Value Reference Range Interpretation Comments Sodium Lvl (test code = Sodium Lvl) 139 135-145 [facility] HospitalUifnqihGDXTASWCFABQ6609-24-51 11:32:00 Test Item Value Reference Range Interpretation Comments Potassium Lvl (test code = Potassium 4.6 3.5-5.1 Lvl) [facility] HospitalRwqcrmdXOBWWBGACI7235-44-72 11:32:00 Test Item Value Reference Range Interpretation Comments Lymphocytes (test code = Lymphocytes) 30.4 20.0-40.0 [facility] HospitalGbzvsinFOYARHFFKO9185-61-04 11:32:00 Test Item Value Reference Range Interpretation Comments Eosinophils (test code = 4.5 See_Comment [A utomated message] The Eosinophils) system which ge nerated this result tra nsmitted reference range : <=4.0. The reference r leo was not used to int erpret this result as normal/abnormal . [facility] HospitalJprhbthQRWUVBAYMI6561-88-19 11:32:00 Test Item Value Reference Range Interpretation Comments Monocytes (test code = Monocytes) 13.7 2.0-12.0 [facility] HospitalUoealraBOWYRVXNDZ0031-18-94 11:32:00 Test Item Value Reference Range Interpretation Comments Segs-Bands # (test code = Segs-Bands #) 2.6 1.5-8.1 [facility] HospitalPxezesnPDRBHZSZKQ4205-05-57 11:32:00 Test Item Value Reference Range Interpretation Comments Basophils (test code = 0.7 See_Comment [Aut omated message] The Basophils) system which ge nerated this result tra nsmitted reference range : <=1.0. The reference r leo was not used to int erpret this result as normal/abnormal . [facility] HospitalKnpkxyeKBSWCFJUVV3948-67-13 11:32:00 Test Item Value Reference Range Interpretation Comments Monocytes # (test code 0.7 See_Comment [Aut omated message] The = Monocytes #) system which generated this result tra nsmitted reference range : <=0.8. The reference r leo was not used to int erpret this result as normal/abnormal . [facility] HospitalFsutzikKEIMWTNSES7331-87-92 11:32:00 Test Item Value Reference Range Interpretation Comments Lymphocytes # (test code = Lymphocytes 1.6 1.0-5.5 #) [facility] HospitalOurgkndIFLURYCDBJ5246-13-61 11:32:00 Test Item Value Reference Range Interpretation Comments Eosinophils # (test code 0.2 See_Comment [A utomated message] The = Eosinophils #) system whic h generated this result tra nsmitted reference range : <=0.5. The reference r leo was not used to int erpret this result as normal/abnormal . [facility] HospitalOuihjmnIFWRJQAUNP6197-09-62 11:32:00 Test Item Value Reference Range Interpretation Comments Segs (test code = Segs) 50.7 45.0-75.0 [facility] HospitalGoddxwhGGMQWVISFE6622-82-37 11:32:00 Test Item Value Reference Range Interpretation [...] iron deficiency anemia, and renal disease. CPT: 14085 [facility] HospitalFvfvjhtEYQJAPCNPF7131-83-35 11:32:00 Test Item Value Reference Range Interpretation Comments Hct (test code = Hct) 28.1 36.0-48.0 [facility] HospitalRdsnkfmIZBKNGMLXQ9506-09-37 11:32:00 Test Item Value Reference Range Interpretation Comments RBC (test code = RBC) 3.39 4.20-5.40 [facility] HospitalWhcxtqaBHCUHYJPNH6510-68-53 11:32:00 Test Item Value Reference Range Interpretation Comments Hgb (test code = Hgb) 8.9 12.0-16.0 [facility] HospitalYtgysycNBEHNDVAMS8838-39-62 11:32:00 Test Item Value Reference Range Interpretation Comments WBC (test code = WBC) 5.1 3.7-10.4 [facility] HospitalOesmzmwHKACWGMDXS6048-03-03 11:32:00 Test Item Value Reference Range Interpretation Comments MPV (test code = MPV) 11.3 7.4-10.4 [facility] HospitalOokepjyONALNLFFPH5549-44-82 11:32:00 Test Item Value Reference Range Interpretation Comments Platelet (test code = Platelet) 118 133-450 [facility] HospitalZtunvzrHINKCUPKLZ3619-65-85 11:32:00 Test Item Value Reference Range Interpretation Comments MCHC (test code = MCHC) 31.8 32.0-36.0 [facility] HospitalSzylrupJMKVWWZJJC3737-69-84 11:32:00 Test Item Value Reference Range Interpretation Comments RDW (test code = RDW) 18.0 11.5-14.5 [facility] HospitalDihyrpiMEKYHITRBT4476-23-74 11:32:00 Test Item Value Reference Range Interpretation Comments MCV (test code = MCV) 83.0 80.0-98.0 [facility] HospitalIuurmjhPYONNKWNNL1426-83-14 11:32:00 Test Item Value Reference Range Interpretation Comments MCH (test code = MCH) 26.4 pg 27.0-31.0 [facility]BcrhvwxEZXZPMOTPP2726-07-90 11:32:00 Test Item Value Reference Range Interpretation Comments C3 Complement (test code = C3 137 88-201 Complement) [facility] HospitalOulnvgwINVCBCBLZJ6404-68-64 11:32:00 Test Item Value Reference Range Interpretation Comments HIV. (test code = Negative *NA*(07/30/16 HIV.) 5:32 AM) [facility] HospitalTiheapuUNNAGBGFTKQI6992-51-42 11:32:00 Test Item Value Reference Range Interpretation Comments AGAP (test code = AGAP) 14.6 10.0-20.0 [facility] HospitalHxggqvrBDOADWLXWDGL2790-51-22 11:32:00 Test Item Value Reference Range Interpretation Comments eGFR (test code = eGFR) 33 [facility] HospitalMrfiepbDGJUKZNVTJYR2137-77-29 11:32:00 Test Item Value Reference Range Interpretation Comments Calcium Lvl (test code = Calcium Lvl) 8.3 8.5-10.5 [facility] HospitalLopiyvlSXMODXPAWEYG0380-68-58 11:32:00 Test Item Value Reference Range Interpretation Comments Glucose Lvl (test code = Glucose Lvl) 81 70-99 [facility] HospitalJhwqwdwGVYALEIYFMEN4369-66-14 11:32:00 Test Item Value Reference Range Interpretation Comments Creatinine Lvl (test code = Creatinine 1.95 0.50-1.40 Lvl) [facility] HospitalUjrvbfqZENSKNJKGBFK9797-89-00 11:32:00 Test Item Value Reference Range Interpretation Comments BUN (test code = BUN) 55 7-22 [facility] HospitalDrzhbdvSQSKYLSMCVKE5985-64-73 11:32:00 Test Item Value Reference Range Interpretation Comments CO2 (test code = CO2) 19 24-32 [facility] HospitalAbnkttrMSOVUZLTSVDJ5183-04-53 11:32:00 Test Item Value Reference Range Interpretation Comments Chloride Lvl (test code = Chloride Lvl) 110 95-109 [facility]HrfmatjYRQWAXARALRV6247-93-67 11:32:00 Test Item Value Reference Range Interpretation Comments Sodium Lvl (test code = Sodium Lvl) 139 135-145 [facility] HospitalXkuqjbrTBHOKQHWEOJZ7585-44-97 11:32:00 Test Item Value Reference Range Interpretation Comments Potassium Lvl (test code = Potassium 4.6 3.5-5.1 Lvl) [facility] HospitalBmbyuolNVMNDRRZLM8524-42-60 11:32:00 Test Item Value Reference Range Interpretation Comments Lymphocytes (test code = Lymphocytes) 30.4 20.0-40.0 [facility] HospitalCmjgrvcYJFZFDQOKV3029-13-69 11:32:00 Test Item Value Reference Range Interpretation Comments Eosinophils (test code = 4.5 See_Comment [A utomated message] The Eosinophils) system which ge nerated this result tra nsmitted reference range : <=4.0. The reference r leo was not used to int erpret this result as normal/abnormal . [facility] HospitalLupzumaGUAFVSLBAI5516-06-95 11:32:00 Test Item Value Reference Range Interpretation Comments Monocytes (test code = Monocytes) 13.7 2.0-12.0 [facility] HospitalEzvczlaHMOCQIMFXX1616-13-60 11:32:00 Test Item Value Reference Range Interpretation Comments Segs-Bands # (test code = Segs-Bands #) 2.6 1.5-8.1 [facility] HospitalVkvnhudQJCQPIIYCH2774-72-71 11:32:00 Test Item Value Reference Range Interpretation Comments Basophils (test code = 0.7 See_Comment [Aut omated message] The Basophils) system which ge nerated this result tra nsmitted reference range : <=1.0. The reference r leo was not used to int erpret this result as normal/abnormal . [facility] HospitalLnqbwrqACYQQLFWVP8015-05-20 11:32:00 Test Item Value Reference Range Interpretation Comments Monocytes # (test code 0.7 See_Comment [Aut omated message] The = Monocytes #) system which generated this result tra nsmitted reference range : <=0.8. The reference r leo was not used to int erpret this result as normal/abnormal . [facility] HospitalIddccbkNAYIWELGNV4744-93-51 11:32:00 Test Item Value Reference Range Interpretation Comments Lymphocytes # (test code = Lymphocytes 1.6 1.0-5.5 #) [facility] HospitalPkiavghDHYPUFJGJK5348-21-74 11:32:00 Test Item Value Reference Range Interpretation Comments Eosinophils # (test code 0.2 See_Comment [A utomated message] The = Eosinophils #) system whic h generated this result tra nsmitted reference range : <=0.5. The reference r leo was not used to int erpret this result as normal/abnormal . [facility] HospitalTfaktwpLHRQSKEKTW7856-23-77 11:32:00 Test Item Value Reference Range Interpretation Comments Segs (test code = Segs) 50.7 45.0-75.0 [facility] HospitalMmbbmdzEBKBOKWQTY5189-60-66 11:32:00 Test Item Value Reference Range Interpretation [...] iron deficiency anemia, and renal disease. CPT: 56826 [facility] HospitalMroodqmMJMKYNKJVN3150-79-22 11:32:00 Test Item Value Reference Range Interpretation Comments Hct (test code = Hct) 28.1 36.0-48.0 [facility] HospitalBabzzapRCNOPLHIEF4201-06-41 11:32:00 Test Item Value Reference Range Interpretation Comments RBC (test code = RBC) 3.39 4.20-5.40 [facility] HospitalNddfcmtEFAJVTFALP3808-66-98 11:32:00 Test Item Value Reference Range Interpretation Comments Hgb (test code = Hgb) 8.9 12.0-16.0 [facility] HospitalHcnmygnUXDIWTJOKJ2062-05-58 11:32:00 Test Item Value Reference Range Interpretation Comments WBC (test code = WBC) 5.1 3.7-10.4 [facility] HospitalXmczgtgEBNJEGPKAV6910-03-48 11:32:00 Test Item Value Reference Range Interpretation Comments MPV (test code = MPV) 11.3 7.4-10.4 [facility] HospitalArmksjfEHHNSBCVQM4160-70-20 11:32:00 Test Item Value Reference Range Interpretation Comments Platelet (test code = Platelet) 118 133-450 [facility] HospitalMuksgnnJBOZLXEXAW6335-39-25 11:32:00 Test Item Value Reference Range Interpretation Comments MCHC (test code = MCHC) 31.8 32.0-36.0 [facility] HospitalQcnegywVZIQKLQKZA1726-29-95 11:32:00 Test Item Value Reference Range Interpretation Comments RDW (test code = RDW) 18.0 11.5-14.5 [facility] HospitalJczininIOMVENDNLS3669-13-65 11:32:00 Test Item Value Reference Range Interpretation Comments MCV (test code = MCV) 83.0 80.0-98.0 [facility] HospitalXujvrchJDCCHRXWQD7221-68-35 11:32:00 Test Item Value Reference Range Interpretation Comments MCH (test code = MCH) 26.4 pg 27.0-31.0 [facility]fsXJYOQSTFAU7787-93-83 11:32:00 Test Item Value Reference Range Interpretation Comments C3 Complement (test code = C3 137 88-201 Complement) [facility] HospitalUopxvilNBAYQIBFMQ6100-91-90 11:32:00 Test Item Value Reference Range Interpretation Comments HIV. (test code = Negative *NA*(07/30/16 HIV.) 5:32 AM) [facility] HospitalHcmrciuNZOMJVNIGM3523-88-88 11:05:00 Test Item Value Reference Range Interpretation [...] iron deficiency anemia, and renal disease. CPT: 76226 [facility] HospitalJfutrbdTPBLLEWAKX6339-68-25 11:05:00 Test Item Value Reference Range Interpretation Comments HIV. (test code = Negative *NA*(07/29/16 HIV.) 5:05 AM) [facility] HospitalFzkwsemFCLMVPPGLD2424-96-67 11:05:00 Test Item Value Reference Range Interpretation Comments C3 Complement (test code = C3 92 88-201 Complement) [facility] HospitalPqzokhtUGXISNJOEU3635-42-42 11:05:00 Test Item Value Reference Range Interpretation [...] iron deficiency anemia, and renal disease. CPT: 87104 [facility] HospitalSozpxrmXDAUMNZRTD7468-49-94 11:05:00 Test Item Value Reference Range Interpretation Comments HIV. (test code = Negative *NA*(07/29/16 HIV.) 5:05 AM) [facility] HospitalBywjrhcMFYWHEBHGC6093-19-69 11:05:00 Test Item Value Reference Range Interpretation Comments C3 Complement (test code = C3 92 88-201 Complement) [facility] HospitalVgsucaxSZLQTBNFYW9535-98-73 11:05:00 Test Item Value Reference Range Interpretation [...] iron deficiency anemia, and renal disease. CPT: 29675 [facility] HospitalVykijafFWVDJEETXA8866-22-53 11:05:00 Test Item Value Reference Range Interpretation Comments HIV. (test code = Negative *NA*(07/29/16 HIV.) 5:05 AM) [facility] HospitalJoselujOBQQICIHGR7341-93-38 11:05:00 Test Item Value Reference Range Interpretation Comments C3 Complement (test code = C3 92 88-201 Complement) [facility] HospitalUnnmcipVEJBOPHYOS3455-92-44 11:05:00 Test Item Value Reference Range Interpretation [...] iron deficiency anemia, and renal disease. CPT: 61555 [facility] HospitalEassezmDVWDWWKZXO7872-39-29 11:05:00 Test Item Value Reference Range Interpretation Comments HIV. (test code = Negative *NA*(07/29/16 HIV.) 5:05 AM) [facility] HospitalJeilzwwHJYKNENZVW4549-61-39 11:05:00 Test Item Value Reference Range Interpretation Comments C3 Complement (test code = C3 92 88-201 Complement) [facility]2017-02-07 15:50:00 Test Item Value Reference Range Interpretation Comments eGFR (test code = eGFR) 25 [facility]2017-02-07 15:50:00 Test Item Value Reference Range Interpretation Comments BUN (test code = BUN) 55 7-22 [facility]2017-02-07 15:50:00 Test Item Value Reference Range Interpretation Comments CO2 (test code = CO2) 23 24-32 [facility]2017-02-07 15:50:00 Test Item Value Reference Range Interpretation Comments Chloride Lvl (test code = Chloride Lvl) 109 95-109 [facility]2017-02-07 15:50:00 Test Item Value Reference Range Interpretation Comments Glucose Lvl (test code = Glucose Lvl) 101 70-99 [facility]2017-02-07 15:50:00 Test Item Value Reference Range Interpretation Comments Potassium Lvl (test code = Potassium 4.0 3.5-5.1 Lvl) [facility]2017-02-07 15:50:00 Test Item Value Reference Range Interpretation Comments Sodium Lvl (test code = Sodium Lvl) 141 135-145 [facility]2017-02-07 15:50:00 Test Item Value Reference Range Interpretation Comments AGAP (test code = AGAP) 13.0 10.0-20.0 [facility]2017-02-07 15:50:00 Test Item Value Reference Range Interpretation Comments Calcium Lvl (test code = Calcium Lvl) 7.7 8.5-10.5 [facility]2017-02-07 15:50:00 Test Item Value Reference Range Interpretation Comments Creatinine Lvl (test code = Creatinine 2.49 0.50-1.40 Lvl) [facility] HospitalLrvhkxlGXWCYLHJCX2488-25-28 15:50:00 Test Item Value Reference Range Interpretation Comments PT (test code = PT) 14.8 s 12.0-14.7 [facility] HospitalJvpgnvcOLCRDFCRLX8563-97-48 15:50:00 Test Item Value Reference Range Interpretation Comments PTT (test code = PTT) 40.8 s 22.9-35.8 [facility] HospitalDuevsilAMNAAGBLNN3071-69-06 15:50:00 Test Item Value Reference Range Interpretation Comments INR (test code = INR) 1.14 0.85-1.17 [facility]FajmewkMHNWLIUONB5685-13-13 15:50:00 Test Item Value Reference Range Interpretation Comments C3 Complement (test code = C3 94 88-201 Complement) [facility]2017-02-07 15:50:00 Test Item Value Reference Range Interpretation Comments eGFR (test code = eGFR) 25 [facility]2017-02-07 15:50:00 Test Item Value Reference Range Interpretation Comments BUN (test code = BUN) 55 7-22 [facility]2017-02-07 15:50:00 Test Item Value Reference Range Interpretation Comments CO2 (test code = CO2) 23 24-32 [facility]2017-02-07 15:50:00 Test Item Value Reference Range Interpretation Comments Chloride Lvl (test code = Chloride Lvl) 109 95-109 [facility]2017-02-07 15:50:00 Test Item Value Reference Range Interpretation Comments Glucose Lvl (test code = Glucose Lvl) 101 70-99 [facility]2017-02-07 15:50:00 Test Item Value Reference Range Interpretation Comments Potassium Lvl (test code = Potassium 4.0 3.5-5.1 Lvl) [facility]2017-02-07 15:50:00 Test Item Value Reference Range Interpretation Comments Sodium Lvl (test code = Sodium Lvl) 141 135-145 [facility]2017-02-07 15:50:00 Test Item Value Reference Range Interpretation Comments AGAP (test code = AGAP) 13.0 10.0-20.0 [facility]2017-02-07 15:50:00 Test Item Value Reference Range Interpretation Comments Calcium Lvl (test code = Calcium Lvl) 7.7 8.5-10.5 [facility]2017-02-07 15:50:00 Test Item Value Reference Range Interpretation Comments Creatinine Lvl (test code = Creatinine 2.49 0.50-1.40 Lvl) [facility] HospitalVnylvxvZLQWBPBGWP1210-80-60 15:50:00 Test Item Value Reference Range Interpretation Comments PT (test code = PT) 14.8 s 12.0-14.7 [facility] HospitalPswgqxrESWPUSGGCG5210-14-96 15:50:00 Test Item Value Reference Range Interpretation Comments PTT (test code = PTT) 40.8 s 22.9-35.8 [facility] HospitalYzvjkfzSNOOSVVPLK3280-15-51 15:50:00 Test Item Value Reference Range Interpretation Comments INR (test code = INR) 1.14 0.85-1.17 [facility] TexasBxztrxxSXOBEYJAJO2849-48-90 15:50:00 Test Item Value Reference Range Interpretation Comments C3 Complement (test code = C3 94 88-201 Complement) [facility]2017-02-07 15:50:00 Test Item Value Reference Range Interpretation Comments eGFR (test code = eGFR) 25 [facility]2017-02-07 15:50:00 Test Item Value Reference Range Interpretation Comments BUN (test code = BUN) 55 7-22 [facility]2017-02-07 15:50:00 Test Item Value Reference Range Interpretation Comments CO2 (test code = CO2) 23 24-32 [facility]2017-02-07 15:50:00 Test Item Value Reference Range Interpretation Comments Chloride Lvl (test code = Chloride Lvl) 109 95-109 [facility]2017-02-07 15:50:00 Test Item Value Reference Range Interpretation Comments Glucose Lvl (test code = Glucose Lvl) 101 70-99 [facility]2017-02-07 15:50:00 Test Item Value Reference Range Interpretation Comments Potassium Lvl (test code = Potassium 4.0 3.5-5.1 Lvl) [facility]2017-02-07 15:50:00 Test Item Value Reference Range Interpretation Comments Sodium Lvl (test code = Sodium Lvl) 141 135-145 [facility]2017-02-07 15:50:00 Test Item Value Reference Range Interpretation Comments AGAP (test code = AGAP) 13.0 10.0-20.0 [facility]2017-02-07 15:50:00 Test Item Value Reference Range Interpretation Comments Calcium Lvl (test code = Calcium Lvl) 7.7 8.5-10.5 [facility]2017-02-07 15:50:00 Test Item Value Reference Range Interpretation Comments Creatinine Lvl (test code = Creatinine 2.49 0.50-1.40 Lvl) [facility] HospitalSwlfquqDIJAIXLKKW2698-53-91 15:50:00 Test Item Value Reference Range Interpretation Comments PT (test code = PT) 14.8 s 12.0-14.7 [facility] HospitalUuaeckpGNENYQSABB0082-32-46 15:50:00 Test Item Value Reference Range Interpretation Comments PTT (test code = PTT) 40.8 s 22.9-35.8 [facility] HospitalYezodxwCCAYNZGFPC6148-80-83 15:50:00 Test Item Value Reference Range Interpretation Comments INR (test code = INR) 1.14 0.85-1.17 [facility] TexasSsuduivJAXHOMBCZO9247-23-47 15:50:00 Test Item Value Reference Range Interpretation Comments C3 Complement (test code = C3 94 88-201 Complement) [facility]2017-02-07 15:50:00 Test Item Value Reference Range Interpretation Comments eGFR (test code = eGFR) 25 [facility]2017-02-07 15:50:00 Test Item Value Reference Range Interpretation Comments BUN (test code = BUN) 55 7-22 [facility]2017-02-07 15:50:00 Test Item Value Reference Range Interpretation Comments CO2 (test code = CO2) 23 24-32 [facility]2017-02-07 15:50:00 Test Item Value Reference Range Interpretation Comments Chloride Lvl (test code = Chloride Lvl) 109 95-109 [facility]2017-02-07 15:50:00 Test Item Value Reference Range Interpretation Comments Glucose Lvl (test code = Glucose Lvl) 101 70-99 [facility]2017-02-07 15:50:00 Test Item Value Reference Range Interpretation Comments Potassium Lvl (test code = Potassium 4.0 3.5-5.1 Lvl) [facility]2017-02-07 15:50:00 Test Item Value Reference Range Interpretation Comments Sodium Lvl (test code = Sodium Lvl) 141 135-145 [facility]2017-02-07 15:50:00 Test Item Value Reference Range Interpretation Comments AGAP (test code = AGAP) 13.0 10.0-20.0 [facility]2017-02-07 15:50:00 Test Item Value Reference Range Interpretation Comments Calcium Lvl (test code = Calcium Lvl) 7.7 8.5-10.5 [facility]2017-02-07 15:50:00 Test Item Value Reference Range Interpretation Comments Creatinine Lvl (test code = Creatinine 2.49 0.50-1.40 Lvl) [facility] HospitalUpopiehGAKTKNBEZZ2243-13-01 15:50:00 Test Item Value Reference Range Interpretation Comments PT (test code = PT) 14.8 s 12.0-14.7 [facility] HospitalDzmoxypKVMLIUCVOP4209-50-65 15:50:00 Test Item Value Reference Range Interpretation Comments PTT (test code = PTT) 40.8 s 22.9-35.8 [facility] HospitalIeeevnuVNPCXCPYQC5864-42-29 15:50:00 Test Item Value Reference Range Interpretation Comments INR (test code = INR) 1.14 0.85-1.17 [facility] TexasPnhobvqUKYXSGRJOK9636-33-40 15:50:00 Test Item Value Reference Range Interpretation Comments C3 Complement (test code = C3 94 88-201 Complement) [facility] HospitalEdcsybmSLWSGDTRAF7703-31-70 10:35:00 Test Item Value Reference Range Interpretation Comments Lymphocytes # (test code = Lymphocytes 1.7 1.0-5.5 #) [facility] HospitalBpdzqsdIZFPOWPNDW5562-00-58 10:35:00 Test Item Value Reference Range Interpretation Comments Segs-Bands # (test code = Segs-Bands #) 2.7 1.5-8.1 [facility] HospitalUvlypfzLXIPWVQMRX0578-62-52 10:35:00 Test Item Value Reference Range Interpretation Comments Eosinophils # (test code 0.1 See_Comment [A utomated message] The = Eosinophils #) system whic h generated this result tra nsmitted reference range : <=0.5. The reference r leo was not used to int erpret this result as normal/abnormal . [facility] HospitalWpycblcIAUFFLYNDZ9154-68-97 10:35:00 Test Item Value Reference Range Interpretation Comments Monocytes # (test code 0.7 See_Comment [Aut omated message] The = Monocytes #) system which generated this result tra nsmitted reference range : <=0.8. The reference r leo was not used to int erpret this result as normal/abnormal . [facility] HospitalPyinwqfJZTBXBRGTD3604-44-99 10:35:00 Test Item Value Reference Range Interpretation Comments Segs (test code = Segs) 51.3 45.0-75.0 [facility] HospitalJpxzqgtQPSYNLLUGY6658-92-08 10:35:00 Test Item Value Reference Range Interpretation Comments Lymphocytes (test code = Lymphocytes) 31.6 20.0-40.0 [facility] HospitalKlivaiqUHDGYYVDQJ1289-50-90 10:35:00 Test Item Value Reference Range Interpretation Comments Monocytes (test code = Monocytes) 14.1 2.0-12.0 [facility] HospitalEfeqxdeGPLPWLXEQM0121-97-16 10:35:00 Test Item Value Reference Range Interpretation Comments Eosinophils (test code = 2.6 See_Comment [A utomated message] The Eosinophils) system which ge nerated this result tra nsmitted reference range : <=4.0. The reference r leo was not used to int erpret this result as normal/abnormal . [facility] HospitalYakprjsDPBMAQSLLU4211-02-86 10:35:00 Test Item Value Reference Range Interpretation Comments Basophils (test code = 0.4 See_Comment [Aut omated message] The Basophils) system which ge nerated this result tra nsmitted reference range : <=1.0. The reference r leo was not used to int erpret this result as normal/abnormal . [facility] HospitalAlswvzhGEXERJGPYW2743-10-80 10:35:00 Test Item Value Reference Range Interpretation Comments PB Smear Path Peripheral blood smear shows (test code = PB hypochromic normocytic Smear Path) anemia with anisopoikilocytsosis, no increase in schistocytes, slight polychromasia, a few estella cells, moderate thrombocytopenia. Impression: (1) no evidence of microangiopathic hemolysis, (2) RBC morphology is suggestive of anemia of chronic disease or iron deficiency anemia, and renal disease. CPT: 04854 [facility] HospitalGkmsvkpMJKUXIDUIE4853-88-36 10:35:00 Test Item Value Reference Range Interpretation Comments Hct (test code = Hct) 29.3 36.0-48.0 [facility] HospitalZprsmxlWLNFSDFNNG9842-93-35 10:35:00 Test Item Value Reference Range Interpretation Comments Hgb (test code = Hgb) 9.2 12.0-16.0 [facility] HospitalXjtcxchNMSGQZTAYS5460-39-41 10:35:00 Test Item Value Reference Range Interpretation Comments RBC (test code = RBC) 3.54 4.20-5.40 [facility] HospitalRybvinaKSZOUGDXUN9722-49-18 10:35:00 Test Item Value Reference Range Interpretation Comments WBC (test code = WBC) 5.3 3.7-10.4 [facility] HospitalDgbsvtsNVRIWMMSIP9571-32-48 10:35:00 Test Item Value Reference Range Interpretation Comments Platelet (test code = Platelet) 87 133-450 [facility] HospitalIyfyphqCJDGMSRNRY9548-53-06 10:35:00 Test Item Value Reference Range Interpretation Comments MCHC (test code = MCHC) 31.4 32.0-36.0 [facility] HospitalXofybsgLVKSJJXETZ0707-37-96 10:35:00 Test Item Value Reference Range Interpretation Comments RDW (test code = RDW) 17.9 11.5-14.5 [facility] HospitalOfeostuHFLXPJBRCL0436-67-75 10:35:00 Test Item Value Reference Range Interpretation Comments MPV (test code = MPV) 10.9 7.4-10.4 [facility] HospitalDitstjzOQPKCROUIA8919-29-15 10:35:00 Test Item Value Reference Range Interpretation Comments MCH (test code = MCH) 26.0 pg 27.0-31.0 [facility] HospitalGdylyuuKWQPIMZVNE5946-69-64 10:35:00 Test Item Value Reference Range Interpretation Comments MCV (test code = MCV) 82.8 80.0-98.0 [facility] TexasGrbsenlSCYHHDVVOM9323-32-44 10:35:00 Test Item Value Reference Range Interpretation Comments HIV. (test code = Negative *NA*(07/28/16 HIV.) 4:35 AM) [facility] HospitalMiktlenODOBZZOWNO9384-78-41 10:35:00 Test Item Value Reference Range Interpretation Comments Lymphocytes # (test code = Lymphocytes 1.7 1.0-5.5 #) [facility] HospitalJuiouyhMMOYRFWARA2966-46-55 10:35:00 Test Item Value Reference Range Interpretation Comments Segs-Bands # (test code = Segs-Bands #) 2.7 1.5-8.1 [facility] HospitalTowwugmBMWXDUPPRL7606-67-58 10:35:00 Test Item Value Reference Range Interpretation Comments Eosinophils # (test code 0.1 See_Comment [A utomated message] The = Eosinophils #) system whic h generated this result tra nsmitted reference range : <=0.5. The reference r leo was not used to int erpret this result as normal/abnormal . [facility] HospitalDpviymjJURZHNFEYN3591-31-38 10:35:00 Test Item Value Reference Range Interpretation Comments Monocytes # (test code 0.7 See_Comment [Aut omated message] The = Monocytes #) system which generated this result tra nsmitted reference range : <=0.8. The reference r leo was not used to int erpret this result as normal/abnormal . [facility] HospitalRqqjfwsXMWMPMNMNB3881-77-25 10:35:00 Test Item Value Reference Range Interpretation Comments Segs (test code = Segs) 51.3 45.0-75.0 [facility] HospitalSpubpjuSUDWLVPHGB7191-59-01 10:35:00 Test Item Value Reference Range Interpretation Comments Lymphocytes (test code = Lymphocytes) 31.6 20.0-40.0 [facility] HospitalImtypeiKQPKNLNZQY0255-22-63 10:35:00 Test Item Value Reference Range Interpretation Comments Monocytes (test code = Monocytes) 14.1 2.0-12.0 [facility] HospitalLggqncyHFHVCVVZIL5695-23-58 10:35:00 Test Item Value Reference Range Interpretation Comments Eosinophils (test code = 2.6 See_Comment [A utomated message] The Eosinophils) system which ge nerated this result tra nsmitted reference range : <=4.0. The reference r leo was not used to int erpret this result as normal/abnormal . [facility] HospitalBajllqvRYZXNBUVZG2182-29-77 10:35:00 Test Item Value Reference Range Interpretation Comments Basophils (test code = 0.4 See_Comment [Aut omated message] The Basophils) system which ge nerated this result tra nsmitted reference range : <=1.0. The reference r leo was not used to int erpret this result as normal/abnormal . [facility] HospitalJgcdpncQNEPBTBSJY3020-89-16 10:35:00 Test Item Value Reference Range Interpretation Comments PB Smear Path Peripheral blood smear shows (test code = PB hypochromic normocytic Smear Path) anemia with anisopoikilocytsosis, no increase in schistocytes, slight polychromasia, a few estella cells, moderate thrombocytopenia. Impression: (1) no evidence of microangiopathic hemolysis, (2) RBC morphology is suggestive of anemia of chronic disease or iron deficiency anemia, and renal disease. CPT: 76292 [facility] HospitalSvpzyxjAWSAIMBTDU9837-56-80 10:35:00 Test Item Value Reference Range Interpretation Comments Hct (test code = Hct) 29.3 36.0-48.0 [facility] HospitalAjvybbpWILMURLLTK2345-83-34 10:35:00 Test Item Value Reference Range Interpretation Comments Hgb (test code = Hgb) 9.2 12.0-16.0 [facility] HospitalEvmmtbwPWRUOENIVO7873-80-40 10:35:00 Test Item Value Reference Range Interpretation Comments RBC (test code = RBC) 3.54 4.20-5.40 [facility] HospitalNeypwwdZAVSENJGLP7499-40-46 10:35:00 Test Item Value Reference Range Interpretation Comments WBC (test code = WBC) 5.3 3.7-10.4 [facility] HospitalOzsywcrTEXAGPVXLL2911-03-12 10:35:00 Test Item Value Reference Range Interpretation Comments Platelet (test code = Platelet) 87 133-450 [facility] HospitalXmfupqbYEQGCGGJIQ2553-66-60 10:35:00 Test Item Value Reference Range Interpretation Comments MCHC (test code = MCHC) 31.4 32.0-36.0 [facility] HospitalFfvmliyBIDBOQYMWV6906-07-02 10:35:00 Test Item Value Reference Range Interpretation Comments RDW (test code = RDW) 17.9 11.5-14.5 [facility] HospitalVfpmsptJJIJSJQYTK0538-56-05 10:35:00 Test Item Value Reference Range Interpretation Comments MPV (test code = MPV) 10.9 7.4-10.4 [facility] HospitalYmpxrdiLGOVVSOLDH2071-75-54 10:35:00 Test Item Value Reference Range Interpretation Comments MCH (test code = MCH) 26.0 pg 27.0-31.0 [facility] HospitalKltpvjwRGFSJAPXDW5328-44-86 10:35:00 Test Item Value Reference Range Interpretation Comments MCV (test code = MCV) 82.8 80.0-98.0 [facility]0360[facility]-35 10:35:00 Test Item Value Reference Range Interpretation Comments HIV. (test code = Negative *NA*(07/28/16 HIV.) 4:35 AM) [facility] HospitalSoctgkyBBWCZHTIEV4305-91-79 10:35:00 Test Item Value Reference Range Interpretation Comments Lymphocytes # (test code = Lymphocytes 1.7 1.0-5.5 #) [facility] HospitalHbiyxveLIDKKFAMOQ2058-44-95 10:35:00 Test Item Value Reference Range Interpretation Comments Segs-Bands # (test code = Segs-Bands #) 2.7 1.5-8.1 [facility] HospitalFxxjquuZOFAFKWCVO1946-55-01 10:35:00 Test Item Value Reference Range Interpretation Comments Eosinophils # (test code 0.1 See_Comment [A utomated message] The = Eosinophils #) system whic h generated this result tra nsmitted reference range : <=0.5. The reference r leo was not used to int erpret this result as normal/abnormal . [facility] HospitalRchbzujZABEVZJQHA9126-39-34 10:35:00 Test Item Value Reference Range Interpretation Comments Monocytes # (test code 0.7 See_Comment [Aut omated message] The = Monocytes #) system which generated this result tra nsmitted reference range : <=0.8. The reference r leo was not used to int erpret this result as normal/abnormal . [facility] HospitalPthllqkEDIYPLGLJA0387-30-54 10:35:00 Test Item Value Reference Range Interpretation Comments Segs (test code = Segs) 51.3 45.0-75.0 [facility] HospitalZjqpytfUTJJCEEBGK1504-30-88 10:35:00 Test Item Value Reference Range Interpretation Comments Lymphocytes (test code = Lymphocytes) 31.6 20.0-40.0 [facility] HospitalApsqkikYRUSDEPPDH2580-22-50 10:35:00 Test Item Value Reference Range Interpretation Comments Monocytes (test code = Monocytes) 14.1 2.0-12.0 [facility] HospitalFgwliyvCUQRHMMNMK3473-76-83 10:35:00 Test Item Value Reference Range Interpretation Comments Eosinophils (test code = 2.6 See_Comment [A utomated message] The Eosinophils) system which ge nerated this result tra nsmitted reference range : <=4.0. The reference r leo was not used to int erpret this result as normal/abnormal . [facility] HospitalQjwugwnBZRIRHTNIL9321-30-75 10:35:00 Test Item Value Reference Range Interpretation Comments Basophils (test code = 0.4 See_Comment [Aut omated message] The Basophils) system which ge nerated this result tra nsmitted reference range : <=1.0. The reference r leo was not used to int erpret this result as normal/abnormal . [facility] HospitalCnzidpkGWIQUCQYPM8178-77-16 10:35:00 Test Item Value Reference Range Interpretation Comments PB Smear Path Peripheral blood smear shows (test code = PB hypochromic normocytic Smear Path) anemia with anisopoikilocytsosis, no increase in schistocytes, slight polychromasia, a few estella cells, moderate thrombocytopenia. Impression: (1) no evidence of microangiopathic hemolysis, (2) RBC morphology is suggestive of anemia of chronic disease or iron deficiency anemia, and renal disease. CPT: 19245 [facility] HospitalCloxnunRLGHBTUQNT5730-49-07 10:35:00 Test Item Value Reference Range Interpretation Comments Hct (test code = Hct) 29.3 36.0-48.0 [facility] HospitalUyqtlpzWNVHGFOTCW7059-90-11 10:35:00 Test Item Value Reference Range Interpretation Comments Hgb (test code = Hgb) 9.2 12.0-16.0 [facility] HospitalJqqhiajANDIZCESES8612-15-36 10:35:00 Test Item Value Reference Range Interpretation Comments RBC (test code = RBC) 3.54 4.20-5.40 [facility] HospitalJhgsdywZBSVVACHZZ3490-83-00 10:35:00 Test Item Value Reference Range Interpretation Comments WBC (test code = WBC) 5.3 3.7-10.4 [facility] HospitalFynpuqwUSGTBIAGMX9351-02-56 10:35:00 Test Item Value Reference Range Interpretation Comments Platelet (test code = Platelet) 87 133-450 [facility] HospitalUaeidkdTHHVONVMDY6265-35-87 10:35:00 Test Item Value Reference Range Interpretation Comments MCHC (test code = MCHC) 31.4 32.0-36.0 [facility] HospitalRqkvphlWUQWDMXLTW6282-79-43 10:35:00 Test Item Value Reference Range Interpretation Comments RDW (test code = RDW) 17.9 11.5-14.5 [facility] HospitalWgvnvcbVRNSQRZDJS0192-41-53 10:35:00 Test Item Value Reference Range Interpretation Comments MPV (test code = MPV) 10.9 7.4-10.4 [facility] HospitalInyvhutIDEWFGCXYB4009-04-95 10:35:00 Test Item Value Reference Range Interpretation Comments MCH (test code = MCH) 26.0 pg 27.0-31.0 [facility] HospitalKlokinvPZXPYRKMQY7955-53-38 10:35:00 Test Item Value Reference Range Interpretation Comments MCV (test code = MCV) 82.8 80.0-98.0 [facility]CvvxqafPKATUTUXIX3869-39-62 10:35:00 Test Item Value Reference Range Interpretation Comments HIV. (test code = Negative *NA*(07/28/16 HIV.) 4:35 AM) [facility] HospitalYzedymbVYKQWYLDMW6677-64-49 10:35:00 Test Item Value Reference Range Interpretation Comments Lymphocytes # (test code = Lymphocytes 1.7 1.0-5.5 #) [facility] HospitalWjivfzjYQSWFDJBSH6588-10-96 10:35:00 Test Item Value Reference Range Interpretation Comments Segs-Bands # (test code = Segs-Bands #) 2.7 1.5-8.1 [facility] HospitalHtidrwyKXELTIILGD7549-92-18 10:35:00 Test Item Value Reference Range Interpretation Comments Eosinophils # (test code 0.1 See_Comment [A utomated message] The = Eosinophils #) system whic h generated this result tra nsmitted reference range : <=0.5. The reference r leo was not used to int erpret this result as normal/abnormal . [facility] HospitalGadzoxqOWGNASWNBC8109-02-18 10:35:00 Test Item Value Reference Range Interpretation Comments Monocytes # (test code 0.7 See_Comment [Aut omated message] The = Monocytes #) system which generated this result tra nsmitted reference range : <=0.8. The reference r leo was not used to int erpret this result as normal/abnormal . [facility] HospitalHswiebgEENGMKOLKG0886-90-17 10:35:00 Test Item Value Reference Range Interpretation Comments Segs (test code = Segs) 51.3 45.0-75.0 [facility] HospitalQkflxisORQIWLEHTL6679-41-32 10:35:00 Test Item Value Reference Range Interpretation Comments Lymphocytes (test code = Lymphocytes) 31.6 20.0-40.0 [facility] HospitalBovsfaeWFBHGJVTNN6931-89-74 10:35:00 Test Item Value Reference Range Interpretation Comments Monocytes (test code = Monocytes) 14.1 2.0-12.0 [facility] HospitalTbsxpvvEQICWYZVXN6203-76-59 10:35:00 Test Item Value Reference Range Interpretation Comments Eosinophils (test code = 2.6 See_Comment [A utomated message] The Eosinophils) system which ge nerated this result tra nsmitted reference range : <=4.0. The reference r leo was not used to int erpret this result as normal/abnormal . [facility] HospitalMsxmibqDQIMPVZLVV0975-40-22 10:35:00 Test Item Value Reference Range Interpretation Comments Basophils (test code = 0.4 See_Comment [Aut omated message] The Basophils) system which ge nerated this result tra nsmitted reference range : <=1.0. The reference r leo was not used to int erpret this result as normal/abnormal . [facility] HospitalEsvjzrpJHRFKBCHJD9682-33-50 10:35:00 Test Item Value Reference Range Interpretation Comments PB Smear Path Peripheral blood smear shows (test code = PB hypochromic normocytic Smear Path) anemia with anisopoikilocytsosis, no increase in schistocytes, slight polychromasia, a few estella cells, moderate thrombocytopenia. Impression: (1) no evidence of microangiopathic hemolysis, (2) RBC morphology is suggestive of anemia of chronic disease or iron deficiency anemia, and renal disease. CPT: 52516 [facility] HospitalIkpjqysRIIABLJMKE5418-85-75 10:35:00 Test Item Value Reference Range Interpretation Comments Hct (test code = Hct) 29.3 36.0-48.0 [facility] HospitalZfjoihjFMKOCTOAPG4165-71-05 10:35:00 Test Item Value Reference Range Interpretation Comments Hgb (test code = Hgb) 9.2 12.0-16.0 [facility] HospitalTokfpjdJNDYVIKIEY6012-85-30 10:35:00 Test Item Value Reference Range Interpretation Comments RBC (test code = RBC) 3.54 4.20-5.40 [facility] HospitalFibqglmFKMYRUXVJE8862-11-86 10:35:00 Test Item Value Reference Range Interpretation Comments WBC (test code = WBC) 5.3 3.7-10.4 [facility] HospitalQwdambmWNQBVFVMZG9146-58-93 10:35:00 Test Item Value Reference Range Interpretation Comments Platelet (test code = Platelet) 87 133-450 [facility] HospitalFpnvjauOEXHESNDZX4127-62-44 10:35:00 Test Item Value Reference Range Interpretation Comments MCHC (test code = MCHC) 31.4 32.0-36.0 [facility] HospitalIfbulpgGIUQTYXBDU0377-02-44 10:35:00 Test Item Value Reference Range Interpretation Comments RDW (test code = RDW) 17.9 11.5-14.5 [facility]NmnhdguYXWJTOAUYX7543-35-98 10:35:00 Test Item Value Reference Range Interpretation Comments MPV (test code = MPV) 10.9 7.4-10.4 [facility] HospitalUaxilfnFFUKAOYLXZ5505-33-45 10:35:00 Test Item Value Reference Range Interpretation Comments MCH (test code = MCH) 26.0 pg 27.0-31.0 [facility]EjjphlaFFDQUGPJKV0157-72-62 10:35:00 Test Item Value Reference Range Interpretation Comments MCV (test code = MCV) 82.8 80.0-98.0 [facility] TexasXozmibpNYHECSSUYF3047-83-39 10:35:00 Test Item Value Reference Range Interpretation Comments HIV. (test code = Negative *NA*(07/28/16 HIV.) 4:35 AM) [facility] TexasCARDIAC DKLGUIN1908-39-04 10:22:00 Test Item Value Reference Range Interpretation Comments Total CK (test code = Total CK) 190 12-191 [facility] PBNNS2685-38-59 10:22:00 Test Item Value Reference Range Interpretation Comments Calcium Lvl (test code = Calcium Lvl) 7.8 8.5-10.5 [facility] [id number] 10:22:00 Test Item Value Reference Range Interpretation Comments CO2 (test code = CO2) 21 24-32 [facility] [id number] 10:22:00 Test Item Value Reference Range Interpretation Comments Sodium Lvl (test code = Sodium Lvl) 140 135-145 [facility] ESMWO7660-97-67 10:22:00 Test Item Value Reference Range Interpretation Comments Potassium Lvl (test code = Potassium 3.8 3.5-5.1 Lvl) [facility] [id number] 10:22:00 Test Item Value Reference Range Interpretation Comments Chloride Lvl (test code = Chloride Lvl) 106 95-109 [facility] MDGLF0245-97-87 10:22:00 Test Item Value Reference Range Interpretation Comments Bili Total (test code = Bili Total) 0.4 0.2-1.3 [facility] CenterannUNC [facility] APPALACHIANAQCOV0777-83-81 10:22:00 Test Item Value Reference Range Interpretation Comments Alk Phos (test code = Alk Phos) 74 39-136 [facility]2017-02-06 10:22:00 Test Item Value Reference Range Interpretation Comments eGFR (test code = eGFR) 19 [facility]2017-02-06 10:22:00 Test Item Value Reference Range Interpretation Comments Total Protein (test code = Total 5.2 6.4-8.4 Protein) [facility]2017-02-06 10:22:00 Test Item Value Reference Range Interpretation Comments ALT (test code = ALT) 822 See_Comment [Auto mated message] The system which ge nerated this result transmit rhoit reference range : <=65. The reference range was not used to interpr et this result as reji l/abnormal. [facility]2017-02-06 10:22:00 Test Item Value Reference Range Interpretation Comments AST (test code = AST) 205 See_Comment [Auto mated message] The system which ge nerated this result transmit rohit reference range : <=37. The reference range was not used to interpr et this result as reji l/abnormal. [facility]2017-02-06 10:22:00 Test Item Value Reference Range Interpretation Comments Albumin Lvl (test code = Albumin Lvl) 1.8 3.5-5.0 [facility]2017-02-06 10:22:00 Test Item Value Reference Range Interpretation Comments BUN (test code = BUN) 54 7-22 [facility]2017-02-06 10:22:00 Test Item Value Reference Range Interpretation Comments Glucose Lvl (test code = Glucose Lvl) 143 70-99 [facility]2017-02-06 10:22:00 Test Item Value Reference Range Interpretation Comments Creatinine Lvl (test code = Creatinine 3.11 0.50-1.40 Lvl) [facility]2017-02-06 10:22:00 Test Item Value Reference Range Interpretation Comments B/C Ratio (test code = B/C Ratio) 17 6-25 [facility]2017-02-06 10:22:00 Test Item Value Reference Range Interpretation Comments AGAP (test code = AGAP) 16.8 10.0-20.0 [place] 060167-02-06 10:22:00 Test Item Value Reference Range Interpretation Comments Globulin (test code = Globulin) 3.4 2.7-4.2 [facility]2017-02-06 10:22:00 Test Item Value Reference Range Interpretation Comments A/G Ratio (test code = A/G Ratio) 0.5 0.7-1.6 [facility]2017-02-06 10:22:00 Test Item Value Reference Range Interpretation Comments Magnesium Lvl (test code = Magnesium 2.0 1.8-2.4 Lvl) [facility]2017-02-06 10:22:00 Test Item Value Reference Range Interpretation Comments Phosphorus (test code = Phosphorus) 3.7 2.5-4.5 [facility] HospitalJsoubhgQYXYEJKDUT1076-32-49 10:22:00 Test Item Value Reference Range Interpretation Comments RDW (test code = RDW) 17.7 11.5-14.5 [facility] HospitalSwufbzpXGZTDVUCTL2035-09-31 10:22:00 Test Item Value Reference Range Interpretation Comments MCHC (test code = MCHC) 32.9 32.0-36.0 [facility] HospitalBgarebgHXVWVBWBRZ1782-09-14 10:22:00 Test Item Value Reference Range Interpretation Comments Hct (test code = Hct) 25.4 36.0-48.0 [facility] HospitalVzqxhucBXVAOGZHJY0997-64-37 10:22:00 Test Item Value Reference Range Interpretation Comments MCH (test code = MCH) 26.4 pg 27.0-31.0 [facility] HospitalLkfqoouNNHVSQILFL8533-95-31 10:22:00 Test Item Value Reference Range Interpretation Comments MCV (test code = MCV) 80.3 80.0-98.0 [facility] HospitalLegdhnySFSTUEDZRD7263-09-29 10:22:00 Test Item Value Reference Range Interpretation Comments MPV (test code = MPV) 11.4 7.4-10.4 [facility] HospitalStemvxbIGAEUUGLIF9022-10-90 10:22:00 Test Item Value Reference Range Interpretation Comments Platelet (test code = Platelet) 74 133-450 [facility] HospitalIwqhyslIZDRSQJDPN9141-01-07 10:22:00 Test Item Value Reference Range Interpretation Comments RBC (test code = RBC) 3.16 4.20-5.40 [facility] HospitalSjqmoelFNNBJCEVKV4577-87-28 10:22:00 Test Item Value Reference Range Interpretation Comments WBC (test code = WBC) 5.3 3.7-10.4 [facility] HospitalPjtteluSPOMVBNDZH5698-80-65 10:22:00 Test Item Value Reference Range Interpretation Comments Hgb (test code = Hgb) 8.4 12.0-16.0 [facility] HospitalZfymbbaBAVOLYTPCF0233-53-16 10:22:00 Test Item Value Reference Range Interpretation Comments Monocytes (test code = Monocytes) 14.5 2.0-12.0 [facility] HospitalOftahirNGPFXZRLZA4239-68-73 10:22:00 Test Item Value Reference Range Interpretation Comments Lymphocytes (test code = Lymphocytes) 29.8 20.0-40.0 [facility] HospitalHdbbkugFRDQFCNEVA4784-25-24 10:22:00 Test Item Value Reference Range Interpretation Comments Eosinophils # (test code 0.1 See_Comment [A utomated message] The = Eosinophils #) system whic h generated this result tra nsmitted reference range : <=0.5. The reference r leo was not used to int erpret this result as normal/abnormal . [facility] HospitalWijcectIPZYUYZXYS3779-23-40 10:22:00 Test Item Value Reference Range Interpretation Comments Monocytes # (test code 0.8 See_Comment [Aut omated message] The = Monocytes #) system which generated this result tra nsmitted reference range : <=0.8. The reference r leo was not used to int erpret this result as normal/abnormal . [facility] HospitalAfvknovCDPHLMHEBS7711-66-07 10:22:00 Test Item Value Reference Range Interpretation Comments Segs-Bands # (test code = Segs-Bands #) 2.9 1.5-8.1 [facility] HospitalOouygrvJIHTMRQEXB6477-63-62 10:22:00 Test Item Value Reference Range Interpretation Comments Lymphocytes # (test code = Lymphocytes 1.6 1.0-5.5 #) [facility] HospitalIlghoqbZZNKGMRHIE5414-40-25 10:22:00 Test Item Value Reference Range Interpretation Comments Basophils (test code = 0.4 See_Comment [Aut omated message] The Basophils) system which ge nerated this result tra nsmitted reference range : <=1.0. The reference r leo was not used to int erpret this result as normal/abnormal . [facility] HospitalUualpsvBQKGRUOBEF8913-33-45 10:22:00 Test Item Value Reference Range Interpretation Comments Eosinophils (test code = 1.2 See_Comment [A utomated message] The Eosinophils) system which ge nerated this result tra nsmitted reference range : <=4.0. The reference r leo was not used to int erpret this result as normal/abnormal . [facility] TexasGiyrdzuOKTANLPUAS2738-63-39 10:22:00 Test Item Value Reference Range Interpretation Comments Segs (test code = Segs) 54.1 45.0-75.0 [facility] TexasSPECIAL AYDIVCILK7069-26-86 10:22:00 Test Item Value Reference Range Interpretation Comments Hgb A1C (test code = Hgb A1C) 8.9 [facility] TexasCARDIAC [id number] 10:22:00 Test Item Value Reference Range Interpretation Comments Total CK (test code = Total CK) 190 12-191 [facility] TexasGH[facility] [employer] JBUAW4996-02-34 10:22:00 Test Item Value Reference Range Interpretation Comments Calcium Lvl (test code = Calcium Lvl) 7.8 8.5-10.5 [facility] [id number] 10:22:00 Test Item Value Reference Range Interpretation Comments CO2 (test code = CO2) 21 24-32 [facility] [id number] 10:22:00 Test Item Value Reference Range Interpretation Comments Sodium Lvl (test code = Sodium Lvl) 140 135-145 [facility] [id number] 10:22:00 Test Item Value Reference Range Interpretation Comments Potassium Lvl (test code = Potassium 3.8 3.5-5.1 Lvl) [facility] [id number] 10:22:00 Test Item Value Reference Range Interpretation Comments Chloride Lvl (test code = Chloride Lvl) 106 95-109 [facility] [id number] 10:22:00 Test Item Value Reference Range Interpretation Comments Bili Total (test code = Bili Total) 0.4 0.2-1.3 [facility] [id number] 10:22:00 Test Item Value Reference Range Interpretation Comments Alk Phos (test code = Alk Phos) 74 39-136 [facility] [id number] 10:22:00 Test Item Value Reference Range Interpretation Comments eGFR (test code = eGFR) 19 [facility]2017-02-06 10:22:00 Test Item Value Reference Range Interpretation Comments Total Protein (test code = Total 5.2 6.4-8.4 Protein) [facility]2017-02-06 10:22:00 Test Item Value Reference Range Interpretation Comments ALT (test code = ALT) 822 See_Comment [Auto mated message] The system which ge nerated this result transmit rohit reference range : <=65. The reference range was not used to interpr et this result as reji l/abnormal. [facility]2017-02-06 10:22:00 Test Item Value Reference Range Interpretation Comments AST (test code = AST) 205 See_Comment [Auto mated message] The system which ge nerated this result transmit rohit reference range : <=37. The reference range was not used to interpr et this result as reji l/abnormal. [facility]2017-02-06 10:22:00 Test Item Value Reference Range Interpretation Comments Albumin Lvl (test code = Albumin Lvl) 1.8 3.5-5.0 [facility]2017-02-06 10:22:00 Test Item Value Reference Range Interpretation Comments BUN (test code = BUN) 54 7-22 [facility]2017-02-06 10:22:00 Test Item Value Reference Range Interpretation Comments Glucose Lvl (test code = Glucose Lvl) 143 70-99 [facility]2017-02-06 10:22:00 Test Item Value Reference Range Interpretation Comments Creatinine Lvl (test code = Creatinine 3.11 0.50-1.40 Lvl) [facility]2017-02-06 10:22:00 Test Item Value Reference Range Interpretation Comments B/C Ratio (test code = B/C Ratio) 17 6-25 [facility]2017-02-06 10:22:00 Test Item Value Reference Range Interpretation Comments AGAP (test code = AGAP) 16.8 10.0-20.0 [facility]2017-02-06 10:22:00 Test Item Value Reference Range Interpretation Comments Globulin (test code = Globulin) 3.4 2.7-4.2 [facility]2017-02-06 10:22:00 Test Item Value Reference Range Interpretation Comments A/G Ratio (test code = A/G Ratio) 0.5 0.7-1.6 [facility]2017-02-06 10:22:00 Test Item Value Reference Range Interpretation Comments Magnesium Lvl (test code = Magnesium 2.0 1.8-2.4 Lvl) [facility]2017-02-06 10:22:00 Test Item Value Reference Range Interpretation Comments Phosphorus (test code = Phosphorus) 3.7 2.5-4.5 [facility] HospitalQhpeffwZUZCFKXUOS8652-81-78 10:22:00 Test Item Value Reference Range Interpretation Comments RDW (test code = RDW) 17.7 11.5-14.5 [facility] HospitalBdtworgQLMUTBGASA5377-57-66 10:22:00 Test Item Value Reference Range Interpretation Comments MCHC (test code = MCHC) 32.9 32.0-36.0 [facility] HospitalMknrjphTLOKAVARPY3633-89-15 10:22:00 Test Item Value Reference Range Interpretation Comments Hct (test code = Hct) 25.4 36.0-48.0 [facility] HospitalRiypjrlISJOHKJKCF5626-10-14 10:22:00 Test Item Value Reference Range Interpretation Comments MCH (test code = MCH) 26.4 pg 27.0-31.0 [facility] HospitalBfnvzzgDXVVAGNIFM8324-09-87 10:22:00 Test Item Value Reference Range Interpretation Comments MCV (test code = MCV) 80.3 80.0-98.0 [facility] HospitalRjbfyyaEUVYSEHOWC0646-21-12 10:22:00 Test Item Value Reference Range Interpretation Comments MPV (test code = MPV) 11.4 7.4-10.4 [facility] HospitalAguhhzsWVCMVFLOXC0110-55-05 10:22:00 Test Item Value Reference Range Interpretation Comments Platelet (test code = Platelet) 74 133-450 [facility] HospitalNggwkcwQRPIYXJWCQ5276-36-58 10:22:00 Test Item Value Reference Range Interpretation Comments RBC (test code = RBC) 3.16 4.20-5.40 [facility] HospitalQcuijyfIRQZYJKFBL1700-57-15 10:22:00 Test Item Value Reference Range Interpretation Comments WBC (test code = WBC) 5.3 3.7-10.4 [facility] HospitalUxrssyyGOGBBKRFRC1569-66-43 10:22:00 Test Item Value Reference Range Interpretation Comments Hgb (test code = Hgb) 8.4 12.0-16.0 [facility] HospitalSrewoplFPZZMIYDQP3257-36-28 10:22:00 Test Item Value Reference Range Interpretation Comments Monocytes (test code = Monocytes) 14.5 2.0-12.0 [facility] HospitalWgmemxoWIKXUQTSTO9409-53-71 10:22:00 Test Item Value Reference Range Interpretation Comments Lymphocytes (test code = Lymphocytes) 29.8 20.0-40.0 [facility] HospitalVmkbaxsWRIAREKYXT2899-32-37 10:22:00 Test Item Value Reference Range Interpretation Comments Eosinophils # (test code 0.1 See_Comment [A utomated message] The = Eosinophils #) system whic h generated this result tra nsmitted reference range : <=0.5. The reference r leo was not used to int erpret this result as normal/abnormal . [facility] HospitalQavmkoaIHSXEQFLAF8675-87-37 10:22:00 Test Item Value Reference Range Interpretation Comments Monocytes # (test code 0.8 See_Comment [Aut omated message] The = Monocytes #) system which generated this result tra nsmitted reference range : <=0.8. The reference r leo was not used to int erpret this result as normal/abnormal . [facility] HospitalPurcgwdOWKQRPYCMJ2197-49-91 10:22:00 Test Item Value Reference Range Interpretation Comments Segs-Bands # (test code = Segs-Bands #) 2.9 1.5-8.1 [facility] HospitalAnffobdGLGAVXTILG3024-85-60 10:22:00 Test Item Value Reference Range Interpretation Comments Lymphocytes # (test code = Lymphocytes 1.6 1.0-5.5 #) [facility] HospitalPdxsfnuVFXHAXKMNO3020-57-06 10:22:00 Test Item Value Reference Range Interpretation Comments Basophils (test code = 0.4 See_Comment [Aut omated message] The Basophils) system which ge nerated this result tra nsmitted reference range : <=1.0. The reference r leo was not used to int erpret this result as normal/abnormal . [facility] HospitalIimojlaHXOKKAZVTP0093-20-82 10:22:00 Test Item Value Reference Range Interpretation Comments Eosinophils (test code = 1.2 See_Comment [A utomated message] The Eosinophils) system which ge nerated this result tra nsmitted reference range : <=4.0. The reference r leo was not used to int erpret this result as normal/abnormal . [facility]YkriegvAGZXXCOBEN9451-19-96 10:22:00 Test Item Value Reference Range Interpretation Comments Segs (test code = Segs) 54.1 45.0-75.0 [facility] LFUFMCDUX6879-34-49 10:22:00 Test Item Value Reference Range Interpretation Comments Hgb A1C (test code = Hgb A1C) 8.9 [facility] SUDQMGV2070-78-15 10:22:00 Test Item Value Reference Range Interpretation Comments Total CK (test code = Total CK) 190 12-191 [facility]2017-02-06 10:22:00 Test Item Value Reference Range Interpretation Comments Calcium Lvl (test code = Calcium Lvl) 7.8 8.5-10.5 [facility]2017-02-06 10:22:00 Test Item Value Reference Range Interpretation Comments CO2 (test code = CO2) 21 24-32 [facility]2017-02-06 10:22:00 Test Item Value Reference Range Interpretation Comments Sodium Lvl (test code = Sodium Lvl) 140 135-145 [facility]2017-02-06 10:22:00 Test Item Value Reference Range Interpretation Comments Potassium Lvl (test code = Potassium 3.8 3.5-5.1 Lvl) [facility]2017-02-06 10:22:00 Test Item Value Reference Range Interpretation Comments Chloride Lvl (test code = Chloride Lvl) 106 95-109 [facility]2017-02-06 10:22:00 Test Item Value Reference Range Interpretation Comments Bili Total (test code = Bili Total) 0.4 0.2-1.3 [facility]2017-02-06 10:22:00 Test Item Value Reference Range Interpretation Comments Alk Phos (test code = Alk Phos) 74 39-136 [facility]2017-02-06 10:22:00 Test Item Value Reference Range Interpretation Comments eGFR (test code = eGFR) 19 [facility]2017-02-06 10:22:00 Test Item Value Reference Range Interpretation Comments Total Protein (test code = Total 5.2 6.4-8.4 Protein) [facility]2017-02-06 10:22:00 Test Item Value Reference Range Interpretation Comments ALT (test code = ALT) 822 See_Comment [Auto mated message] The system which ge nerated this result transmit rohit reference range : <=65. The reference range was not used to interpr et this result as reji l/abnormal. [facility]2017-02-06 10:22:00 Test Item Value Reference Range Interpretation Comments AST (test code = AST) 205 See_Comment [Auto mated message] The system which ge nerated this result transmit rohit reference range : <=37. The reference range was not used to interpr et this result as reji l/abnormal. [facility]2017-02-06 10:22:00 Test Item Value Reference Range Interpretation Comments Albumin Lvl (test code = Albumin Lvl) 1.8 3.5-5.0 [facility]2017-02-06 10:22:00 Test Item Value Reference Range Interpretation Comments BUN (test code = BUN) 54 7-22 [facility]2017-02-06 10:22:00 Test Item Value Reference Range Interpretation Comments Glucose Lvl (test code = Glucose Lvl) 143 70-99 [facility]2017-02-06 10:22:00 Test Item Value Reference Range Interpretation Comments Creatinine Lvl (test code = Creatinine 3.11 0.50-1.40 Lvl) [facility]2017-02-06 10:22:00 Test Item Value Reference Range Interpretation Comments B/C Ratio (test code = B/C Ratio) 17 6-25 [facility]2017-02-06 10:22:00 Test Item Value Reference Range Interpretation Comments AGAP (test code = AGAP) 16.8 10.0-20.0 [facility]2017-02-06 10:22:00 Test Item Value Reference Range Interpretation Comments Globulin (test code = Globulin) 3.4 2.7-4.2 [facility]2017-02-06 10:22:00 Test Item Value Reference Range Interpretation Comments A/G Ratio (test code = A/G Ratio) 0.5 0.7-1.6 [facility]2017-02-06 10:22:00 Test Item Value Reference Range Interpretation Comments Magnesium Lvl (test code = Magnesium 2.0 1.8-2.4 Lvl) [place] 060167-02-06 10:22:00 Test Item Value Reference Range Interpretation Comments Phosphorus (test code = Phosphorus) 3.7 2.5-4.5 [facility] HospitalBuxmnqoSRBANLQODA0360-11-07 10:22:00 Test Item Value Reference Range Interpretation Comments RDW (test code = RDW) 17.7 11.5-14.5 [facility] HospitalXtuqemtLSJFUXKNYB3592-43-27 10:22:00 Test Item Value Reference Range Interpretation Comments MCHC (test code = MCHC) 32.9 32.0-36.0 [facility] HospitalQqdpmxkHFZGTYHJOP0656-22-31 10:22:00 Test Item Value Reference Range Interpretation Comments Hct (test code = Hct) 25.4 36.0-48.0 [facility] HospitalIkhnfcjFXTARCTTKJ0795-74-59 10:22:00 Test Item Value Reference Range Interpretation Comments MCH (test code = MCH) 26.4 pg 27.0-31.0 [facility] HospitalOyljvtmEYUPSLPESK0122-09-73 10:22:00 Test Item Value Reference Range Interpretation Comments MCV (test code = MCV) 80.3 80.0-98.0 [facility] HospitalKoljnbxJSBGEXUXSF8968-08-88 10:22:00 Test Item Value Reference Range Interpretation Comments MPV (test code = MPV) 11.4 7.4-10.4 [facility] HospitalBvjfrdrLLCWXLGGVJ6662-23-46 10:22:00 Test Item Value Reference Range Interpretation Comments Platelet (test code = Platelet) 74 133-450 [facility] HospitalIcrsprsFHLEBAPFEA0560-20-71 10:22:00 Test Item Value Reference Range Interpretation Comments RBC (test code = RBC) 3.16 4.20-5.40 [facility] HospitalZmhfevzNIZCLRATXH3439-27-54 10:22:00 Test Item Value Reference Range Interpretation Comments WBC (test code = WBC) 5.3 3.7-10.4 [facility] HospitalGvasytiHPLDJDFUDR0033-39-70 10:22:00 Test Item Value Reference Range Interpretation Comments Hgb (test code = Hgb) 8.4 12.0-16.0 [facility] HospitalSnvmeecOYPQMQQRGX5812-99-13 10:22:00 Test Item Value Reference Range Interpretation Comments Monocytes (test code = Monocytes) 14.5 2.0-12.0 [facility] HospitalBsxhtkzGMJVSNKWGQ9629-50-89 10:22:00 Test Item Value Reference Range Interpretation Comments Lymphocytes (test code = Lymphocytes) 29.8 20.0-40.0 [facility] HospitalUeipzcoNHTBPNNFGF4674-06-50 10:22:00 Test Item Value Reference Range Interpretation Comments Eosinophils # (test code 0.1 See_Comment [A utomated message] The = Eosinophils #) system wh h generated this result tra nsmitted reference range : <=0.5. The reference r leo was not used to int erpret this result as normal/abnormal . [facility] HospitalIozlkqtTHWLBTNACF8405-05-49 10:22:00 Test Item Value Reference Range Interpretation Comments Monocytes # (test code 0.8 See_Comment [Aut omated message] The = Monocytes #) system which generated this result tra nsmitted reference range : <=0.8. The reference r leo was not used to int erpret this result as normal/abnormal . [facility] HospitalVeqfjktNTLLDELYMS5118-23-89 10:22:00 Test Item Value Reference Range Interpretation Comments Segs-Bands # (test code = Segs-Bands #) 2.9 1.5-8.1 [facility] HospitalZdcftlgSJMLAAEENH4738-00-46 10:22:00 Test Item Value Reference Range Interpretation Comments Lymphocytes # (test code = Lymphocytes 1.6 1.0-5.5 #) [facility] HospitalTezzjlsXBOZYUCKYN1320-88-03 10:22:00 Test Item Value Reference Range Interpretation Comments Basophils (test code = 0.4 See_Comment [Aut omated message] The Basophils) system which ge nerated this result tra nsmitted reference range : <=1.0. The reference r leo was not used to int erpret this result as normal/abnormal . [facility] HospitalEdtrqwrHXQSWZWAVN5447-50-53 10:22:00 Test Item Value Reference Range Interpretation Comments Eosinophils (test code = 1.2 See_Comment [A utomated message] The Eosinophils) system which ge nerated this result tra nsmitted reference range : <=4.0. The reference r leo was not used to int erpret this result as normal/abnormal . [facility] HospitalHweenthDNOSXGMGAF1679-73-46 10:22:00 Test Item Value Reference Range Interpretation Comments Segs (test code = Segs) 54.1 45.0-75.0 [facility] JAZMOHBHA3708-21-68 10:22:00 Test Item Value Reference Range Interpretation Comments Hgb A1C (test code = Hgb A1C) 8.9 [facility] HISWOTJ1502-51-17 10:22:00 Test Item Value Reference Range Interpretation Comments Total CK (test code = Total CK) 190 12-191 [facility] IGZDK1093-77-01 10:22:00 Test Item Value Reference Range Interpretation Comments Calcium Lvl (test code = Calcium Lvl) 7.8 8.5-10.5 [facility]2017-02-06 10:22:00 Test Item Value Reference Range Interpretation Comments CO2 (test code = CO2) 21 24-32 [facility]2017-02-06 10:22:00 Test Item Value Reference Range Interpretation Comments Sodium Lvl (test code = Sodium Lvl) 140 135-145 [facility]2017-02-06 10:22:00 Test Item Value Reference Range Interpretation Comments Potassium Lvl (test code = Potassium 3.8 3.5-5.1 Lvl) [facility]2017-02-06 10:22:00 Test Item Value Reference Range Interpretation Comments Chloride Lvl (test code = Chloride Lvl) 106 95-109 [facility]2017-02-06 10:22:00 Test Item Value Reference Range Interpretation Comments Bili Total (test code = Bili Total) 0.4 0.2-1.3 [facility]2017-02-06 10:22:00 Test Item Value Reference Range Interpretation Comments Alk Phos (test code = Alk Phos) 74 39-136 [facility]2017-02-06 10:22:00 Test Item Value Reference Range Interpretation Comments eGFR (test code = eGFR) 19 [facility]2017-02-06 10:22:00 Test Item Value Reference Range Interpretation Comments Total Protein (test code = Total 5.2 6.4-8.4 Protein) [facility]2017-02-06 10:22:00 Test Item Value Reference Range Interpretation Comments ALT (test code = ALT) 822 See_Comment [Auto mated message] The system which ge nerated this result transmit rohit reference range : <=65. The reference range was not used to interpr et this result as reji l/abnormal. [facility] LESOX0927-87-23 10:22:00 Test Item Value Reference Range Interpretation Comments AST (test code = AST) 205 See_Comment [Auto mated message] The system which ge nerated this result transmit rohit reference range : <=37. The reference range was not used to interpr et this result as reji l/abnormal. [facility]2017-02-06 10:22:00 Test Item Value Reference Range Interpretation Comments Albumin Lvl (test code = Albumin Lvl) 1.8 3.5-5.0 [facility]2017-02-06 10:22:00 Test Item Value Reference Range Interpretation Comments BUN (test code = BUN) 54 7-22 [facility]2017-02-06 10:22:00 Test Item Value Reference Range Interpretation Comments Glucose Lvl (test code = Glucose Lvl) 143 70-99 [facility]2017-02-06 10:22:00 Test Item Value Reference Range Interpretation Comments Creatinine Lvl (test code = Creatinine 3.11 0.50-1.40 Lvl) [facility]2017-02-06 10:22:00 Test Item Value Reference Range Interpretation Comments B/C Ratio (test code = B/C Ratio) 17 6-25 [facility]2017-02-06 10:22:00 Test Item Value Reference Range Interpretation Comments AGAP (test code = AGAP) 16.8 10.0-20.0 [facility]2017-02-06 10:22:00 Test Item Value Reference Range Interpretation Comments Globulin (test code = Globulin) 3.4 2.7-4.2 [facility]2017-02-06 10:22:00 Test Item Value Reference Range Interpretation Comments A/G Ratio (test code = A/G Ratio) 0.5 0.7-1.6 [facility]2017-02-06 10:22:00 Test Item Value Reference Range Interpretation Comments Magnesium Lvl (test code = Magnesium 2.0 1.8-2.4 Lvl) [facility]2017-02-06 10:22:00 Test Item Value Reference Range Interpretation Comments Phosphorus (test code = Phosphorus) 3.7 2.5-4.5 [facility] HospitalTdmtzcaXXPQCLPWJD9822-87-90 10:22:00 Test Item Value Reference Range Interpretation Comments RDW (test code = RDW) 17.7 11.5-14.5 [facility] HospitalYsubrwjVHSFAWKDIE8974-06-46 10:22:00 Test Item Value Reference Range Interpretation Comments MCHC (test code = MCHC) 32.9 32.0-36.0 [facility] HospitalAhlcpmzUXNJOTACHU1586-11-95 10:22:00 Test Item Value Reference Range Interpretation Comments Hct (test code = Hct) 25.4 36.0-48.0 [facility] HospitalItsfxarDIHDQFNMNG0156-75-63 10:22:00 Test Item Value Reference Range Interpretation Comments MCH (test code = MCH) 26.4 pg 27.0-31.0 [facility] HospitalWbxfkmkZEAUCFIBLC4272-77-76 10:22:00 Test Item Value Reference Range Interpretation Comments MCV (test code = MCV) 80.3 80.0-98.0 [facility] HospitalSuvhtxwBXFPMKPHHO2988-83-53 10:22:00 Test Item Value Reference Range Interpretation Comments MPV (test code = MPV) 11.4 7.4-10.4 [facility] HospitalVqvzrywAWOXYWMLOU5212-02-81 10:22:00 Test Item Value Reference Range Interpretation Comments Platelet (test code = Platelet) 74 133-450 [facility] HospitalPxvyizdIRXIERTAIE1579-60-19 10:22:00 Test Item Value Reference Range Interpretation Comments RBC (test code = RBC) 3.16 4.20-5.40 [facility] HospitalAzrkojkZQMOSYHYBD0080-03-05 10:22:00 Test Item Value Reference Range Interpretation Comments WBC (test code = WBC) 5.3 3.7-10.4 [facility] HospitalJgindzkFIKQJIWDYQ2761-06-62 10:22:00 Test Item Value Reference Range Interpretation Comments Hgb (test code = Hgb) 8.4 12.0-16.0 [facility] HospitalSizhydgSFQUPVBARF7266-89-03 10:22:00 Test Item Value Reference Range Interpretation Comments Monocytes (test code = Monocytes) 14.5 2.0-12.0 [facility] HospitalZpfdrwdTQNZLEIKBZ5768-40-76 10:22:00 Test Item Value Reference Range Interpretation Comments Lymphocytes (test code = Lymphocytes) 29.8 20.0-40.0 [facility] HospitalBzobrtxAZJLWITGCB3282-03-63 10:22:00 Test Item Value Reference Range Interpretation Comments Eosinophils # (test code 0.1 See_Comment [A utomated message] The = Eosinophils #) system whic h generated this result tra nsmitted reference range : <=0.5. The reference r leo was not used to int erpret this result as normal/abnormal . [facility] HospitalLqvzqybIYIKHCJXIU1161-85-90 10:22:00 Test Item Value Reference Range Interpretation Comments Monocytes # (test code 0.8 See_Comment [Aut omated message] The = Monocytes #) system which generated this result tra nsmitted reference range : <=0.8. The reference r leo was not used to int erpret this result as normal/abnormal . [facility] HospitalCjjjktgYTBEUFTONW2442-74-10 10:22:00 Test Item Value Reference Range Interpretation Comments Segs-Bands # (test code = Segs-Bands #) 2.9 1.5-8.1 [facility] HospitalEufytwrSOFMOAZORO4239-03-11 10:22:00 Test Item Value Reference Range Interpretation Comments Lymphocytes # (test code = Lymphocytes 1.6 1.0-5.5 #) [facility] HospitalOjusnduOKWOKXDUMP2935-29-94 10:22:00 Test Item Value Reference Range Interpretation Comments Basophils (test code = 0.4 See_Comment [Aut omated message] The Basophils) system which ge nerated this result tra nsmitted reference range : <=1.0. The reference r leo was not used to int erpret this result as normal/abnormal . [facility] HospitalDkaujigXULHOBIFFM8286-50-35 10:22:00 Test Item Value Reference Range Interpretation Comments Eosinophils (test code = 1.2 See_Comment [A utomated message] The Eosinophils) system which ge nerated this result tra nsmitted reference range : <=4.0. The reference r leo was not used to int erpret this result as normal/abnormal . [facility]phmwjsXJKCUAZNJW6067-79-58 10:22:00 Test Item Value Reference Range Interpretation Comments Segs (test code = Segs) 54.1 45.0-75.0 [facility]SPE[facility] XRECQKNTO9699-82-45 10:22:00 Test Item Value Reference Range Interpretation Comments Hgb A1C (test code = Hgb A1C) 8.9 [facility] TexasCARDIAC NLOMPJJ0964-40-80 17:40:00 Test Item Value Reference Range Interpretation Comments Total CK (test code = Total CK) 344 12-191 [facility]PxyljbfSJEWSBHVTS1863-09-78 17:40:00 Test Item Value Reference Range Interpretation Comments IVETTE (test code = IVETTE) Positive *ABN*(07/26/16 11:40 AM) [facility] VfcbpoaSZIGTTFKEG8480-51-38 17:40:00 Test Item Value Reference Range Interpretation Comments APPAREL EMBROIDERY DIGITIZER Ab (test code = APPAREL EMBROIDERY DIGITIZER Ab) no gt [facility] NolfuglUXFZDGBUOA2662-64-27 17:40:00 Test Item Value Reference Range Interpretation Comments Sm Ab (test code = Sm Ab) no gt [facility] LcmweecZZCYNHNKUY1231-12-60 17:40:00 Test Item Value Reference Range Interpretation Comments IVETTE Interp (test code Pattern appears = IVETTE Interp) Nucleolar. [facility] QlnurknFQUBMQDFOP3090-57-20 17:40:00 Test Item Value Reference Range Interpretation Comments SS-B (La) Ab (test code = SS-B (La) Ab) no gt [facility] HdgudbeGNXNECAJZK1107-67-87 17:40:00 Test Item Value Reference Range Interpretation Comments SS-A (Ro) Ab (test code = SS-A (Ro) Ab) no gt [facility] BiywzaiPQXNVHZOOP7121-53-54 17:40:00 Test Item Value Reference Range Interpretation Comments DNA Ab (DS) (test Negative (07/26/16 11:40 code = DNA Ab (DS)) AM) [facility] ZqunwndLRDDLEYLZC0746-23-93 17:40:00 Test Item Value Reference Range Interpretation Comments IVETTE Titer (test code = 1:40 *ABN*(07/26/16 IVETTE Titer) 11:40 AM) [facility]annUR[facility] MFFF3565-69-39 17:40:00 Test Item Value Reference Range Interpretation Comments U Sodium (test code = U Sodium) 21 [facility] CenterannCARD[facility]AC DTWDZWW8627-40-80 17:40:00 Test Item Value Reference Range Interpretation Comments Total CK (test code = Total CK) 344 12-191 [facility] IuksuxuXDODSFEWEN7710-48-01 17:40:00 Test Item Value Reference Range Interpretation Comments IVETTE (test code = IVETTE) Positive *ABN*(07/26/16 11:40 AM) [facility] LpmflzcJQVEMNWXJS5209-78-47 17:40:00 Test Item Value Reference Range Interpretation Comments APPAREL EMBROIDERY DIGITIZER Ab (test code = APPAREL EMBROIDERY DIGITIZER Ab) no gt [facility] CujalyiBIYTYIZDJH7685-36-73 17:40:00 Test Item Value Reference Range Interpretation Comments Sm Ab (test code = Sm Ab) [facility] gt [facility] [facility] [id number] 17:40:00 Test Item Value Reference Range Interpretation Comments IVETTE Interp (test code Pattern appears = IVETTE Interp) Nucleolar. [facility] NgtuegcZSJHDKGNXB5918-76-79 17:40:00 Test Item Value Reference Range Interpretation Comments SS-B (La) Ab (test code = SS-B (La) Ab) no gt [facility] QqxgkdnUNTDOCEABR7374-63-42 17:40:00 Test Item Value Reference Range Interpretation Comments SS-A (Ro) Ab (test code = SS-A (Ro) Ab) no gt [facility] ZhoyorkGPXVUNDGLI8781-80-47 17:40:00 Test Item Value Reference Range Interpretation Comments DNA Ab (DS) (test Negative (07/26/16 11:40 code = DNA Ab (DS)) AM) [facility] [id number] 17:40:00 Test Item Value Reference Range Interpretation Comments IVETTE Titer (test code = 1:40 *ABN*(07/26/16 IVETTE Titer) 11:40 AM) [facility] [id number] 17:40:00 Test Item Value Reference Range Interpretation Comments U Sodium (test code = U Sodium) 21 [facility]CARD[facility]AC [id number] 17:40:00 Test Item Value Reference Range Interpretation Comments Total CK (test code = Total CK) 344 12-191 [facility] SqqhethHJYMHBZXVK7501-54-39 17:40:00 Test Item Value Reference Range Interpretation Comments IVETTE (test code = IVETTE) Positive *ABN*(07/26/16 11:40 AM) [facility] HidxuomPZRIFQZXIH5625-65-07 17:40:00 Test Item Value Reference Range Interpretation Comments APPAREL EMBROIDERY DIGITIZER Ab (test code = APPAREL EMBROIDERY DIGITIZER Ab) no gt [facility] YmybdmjVLPKLSQYHC8485-25-19 17:40:00 Test Item Value Reference Range Interpretation Comments Sm Ab (test code = Sm Ab) no gt [facility] ZhcpkylBQGZQBELVO0260-31-69 17:40:00 Test Item Value Reference Range Interpretation Comments IVETTE Interp (test code Pattern appears = IVETTE Interp) Nucleolar. [facility] YtenhrzLQQCMKWOSK8788-29-34 17:40:00 Test Item Value Reference Range Interpretation Comments SS-B (La) Ab (test code = SS-B (La) Ab) no [facility]SqaxdesRRORZZQQOL9727-38-14 17:40:00 Test Item Value Reference Range Interpretation Comments SS-A (Ro) Ab (test code = SS-A (Ro) Ab) no [facility] KqqnaswOFPZJZLQFR1152-41-87 17:40:00 Test Item Value Reference Range Interpretation Comments DNA Ab (DS) (test Negative (07/26/16 11:40 code = DNA Ab (DS)) AM) [facility] CenterWnboljlSAAEWUTLLP3681-59-53 17:40:00 Test Item Value Reference Range Interpretation Comments IVETTE Titer (test code = 1:40 *ABN*(07/26/16 IVETTE Titer) 11:40 AM) [facility] [id number] 17:40:00 Test Item Value Reference Range Interpretation Comments U Sodium (test code = U Sodium) 21 [facility]annCARD[facility]AC [id number] 17:40:00 Test Item Value Reference Range Interpretation Comments Total CK (test code = Total CK) 344 12-191 [facility] CenterDrzfckhPVUPRSJAJB8022-61-56 17:40:00 Test Item Value Reference Range Interpretation Comments IVETTE (test code = IVETTE) Positive *ABN*(07/26/16 11:40 AM) [facility] CenterOkxylsfLDPKFIKMXO7366-11-40 17:40:00 Test Item Value Reference Range Interpretation Comments APPAREL EMBROIDERY DIGITIZER Ab (test code = APPAREL EMBROIDERY DIGITIZER Ab) no [facility] HospitalQekmejsSAPNCPOESN8646-98-61 17:40:00 Test Item Value Reference Range Interpretation Comments Sm Ab (test code = Sm Ab) no [facility] HospitalLoxuvgiLGWEHMLKEO0656-41-06 17:40:00 Test Item Value Reference Range Interpretation Comments IVETTE Interp (test code Pattern appears = IVETTE Interp) Nucleolar. [facility] CenterCsmksvbFBRNULPWDN2279-72-92 17:40:00 Test Item Value Reference Range Interpretation Comments SS-B (La) Ab (test code = SS-B (La) Ab) no [facility] HospitalYnkairlRJLYBSBBVC1837-98-88 17:40:00 Test Item Value Reference Range Interpretation Comments SS-A (Ro) Ab (test code = SS-A (Ro) Ab) no [facility] HospitalZjushymZPPCYKPKLC0521-32-56 17:40:00 Test Item Value Reference Range Interpretation Comments DNA Ab (DS) (test Negative (07/26/16 11:40 code = DNA Ab (DS)) AM) [facility] CenterMcwzfgsFEUVQOTJIP2827-01-98 17:40:00 Test Item Value Reference Range Interpretation Comments IVETTE Titer (test code = 1:40 *ABN*(07/26/16 IVETTE Titer) 11:40 AM) [facility]2017-02-05 17:40:00 Test Item Value Reference Range Interpretation Comments U Sodium (test code = U Sodium) 21 [facility]ForpaigMWGKYOJSWR4761-58-14 14:00:00 Test Item Value Reference Range Interpretation Comments INR (test code = INR) 1.11 0.85-1.17 [facility] TexasDfiugsoGQWNZYUWPJ0272-54-03 14:00:00 Test Item Value Reference Range Interpretation Comments PT (test code = PT) 14.5 s 12.0-14.7 [facility] CenterJovstrxYWKHNSDSTR0636-92-13 14:00:00 Test Item Value Reference Range Interpretation Comments Hep A IgM (test code Negative *NA*(07/26/16 = Hep A IgM) 8:00 AM) [facility] TexasBcrikutSCQGYUSUZM9265-85-70 14:00:00 Test Item Value Reference Range Interpretation Comments Hep B Core IgM (test Negative *NA*(07/26/16 code = Hep B Core 8:00 AM) IgM) [facility] TexasPslprjkKDAKDCLLMU4963-70-11 14:00:00 Test Item Value Reference Range Interpretation Comments Hep C Ab (test code = Negative *NA*(07/26/16 Hep C Ab) 8:00 AM) [facility] TexasImrgntsWDCKCQSKND4028-32-65 14:00:00 Test Item Value Reference Range Interpretation Comments Hep Bs Ag (test code Negative *NA*(07/26/16 = Hep Bs Ag) 8:00 AM) [facility] TexasIalglinNOERZZCZLV4411-12-73 14:00:00 Test Item Value Reference Range Interpretation Comments INR (test code = INR) 1.11 0.85-1.17 [facility] TexasFuflmkjWNTGVCQKLL6425-12-21 14:00:00 Test Item Value Reference Range Interpretation Comments PT (test code = PT) 14.5 s 12.0-14.7 [facility] CenterDkxasgeHDOQFOCHPO5402-52-76 14:00:00 Test Item Value Reference Range Interpretation Comments Hep A IgM (test code Negative *NA*(07/26/16 = Hep A IgM) 8:00 AM) [facility]jqxhuRONGBCJMPL6756-73-36 14:00:00 Test Item Value Reference Range Interpretation Comments Hep B Core IgM (test Negative *NA*(07/26/16 code = Hep B Core 8:00 AM) IgM) [facility] HospitalTjtprhpXJDGXUFFFN0839-21-10 14:00:00 Test Item Value Reference Range Interpretation Comments Hep C Ab (test code = Negative *NA*(07/26/16 Hep C Ab) 8:00 AM) [facility] HospitalPoiwkbhJZFOUGQZZS3022-75-28 14:00:00 Test Item Value Reference Range Interpretation Comments Hep Bs Ag (test code Negative *NA*(07/26/16 = Hep Bs Ag) 8:00 AM) [facility] HospitalTngjnozNMOGODOUFS9608-48-72 14:00:00 Test Item Value Reference Range Interpretation Comments INR (test code = INR) 1.11 0.85-1.17 [facility] HospitalFbivhdvGXZXMZTXUO1030-04-62 14:00:00 Test Item Value Reference Range Interpretation Comments PT (test code = PT) 14.5 s 12.0-14.7 [facility] HospitalGjvwtvhCNWKOAKFGR9900-01-40 14:00:00 Test Item Value Reference Range Interpretation Comments Hep A IgM (test code Negative *NA*(07/26/16 = Hep A IgM) 8:00 AM) [facility] HospitalTfuguxzVTXRHXIHVF4861-77-23 14:00:00 Test Item Value Reference Range Interpretation Comments Hep B Core IgM (test Negative *NA*(07/26/16 code = Hep B Core 8:00 AM) IgM) [facility] HospitalUrqzpgxEQRMFKLOGW9862-99-17 14:00:00 Test Item Value Reference Range Interpretation Comments Hep C Ab (test code = Negative *NA*(07/26/16 Hep C Ab) 8:00 AM) [facility] HospitalCabliixLQBUISGRCW1748-47-86 14:00:00 Test Item Value Reference Range Interpretation Comments Hep Bs Ag (test code Negative *NA*(07/26/16 = Hep Bs Ag) 8:00 AM) [facility] HospitalBpvlrzbQQAASOKMQK2677-78-57 14:00:00 Test Item Value Reference Range Interpretation Comments INR (test code = INR) 1.11 0.85-1.17 [facility] HospitalReywfkfGFLHDICCPX6611-34-27 14:00:00 Test Item Value Reference Range Interpretation Comments PT (test code = PT) 14.5 s 12.0-14.7 [facility] HospitalIjtmavvTIRMIXNTJS8155-56-66 14:00:00 Test Item Value Reference Range Interpretation Comments Hep A IgM (test code Negative *NA*(07/26/16 = Hep A IgM) 8:00 AM) [facility] HospitalOaixqjqSQSBKVBUCX4896-47-02 14:00:00 Test Item Value Reference Range Interpretation Comments Hep B Core IgM (test Negative *NA*(07/26/16 code = Hep B Core 8:00 AM) IgM) [facility] HospitalIdidtpnTNRJXYDCWD1277-81-62 14:00:00 Test Item Value Reference Range Interpretation Comments Hep C Ab (test code = Negative *NA*(07/26/16 Hep C Ab) 8:00 AM) [facility] HospitalFzeahmtOMFTJPCPCH7115-41-51 14:00:00 Test Item Value Reference Range Interpretation Comments Hep Bs Ag (test code Negative *NA*(07/26/16 = Hep Bs Ag) 8:00 AM) [facility]2017-02-05 10:42:00 Test Item Value Reference Range Interpretation Comments B/C Ratio (test code = B/C Ratio) 17 6-25 [facility]2017-02-05 10:42:00 Test Item Value Reference Range Interpretation Comments ALT (test code = ALT) 1232 See_Comment [Auto mated message] The system which ge nerated this result transmit rohit reference range : <=65. The reference range was not used to interpr et this result as reji l/abnormal. [facility]2017-02-05 10:42:00 Test Item Value Reference Range Interpretation Comments A/G Ratio (test code = A/G Ratio) 0.5 0.7-1.6 [facility]2017-02-05 10:42:00 Test Item Value Reference Range Interpretation Comments Bili Total (test code = Bili Total) 0.3 0.2-1.3 [facility]2017-02-05 10:42:00 Test Item Value Reference Range Interpretation Comments Alk Phos (test code = Alk Phos) 79 39-136 [facility]2017-02-05 10:42:00 Test Item Value Reference Range Interpretation Comments AST (test code = AST) 586 See_Comment [Auto mated message] The system which ge nerated this result transmit rohit reference range : <=37. The reference range was not used to interpr et this result as reji l/abnormal. [facility]2017-02-05 10:42:00 Test Item Value Reference Range Interpretation Comments Total Protein (test code = Total 5.5 6.4-8.4 Protein) [facility]2017-02-05 10:42:00 Test Item Value Reference Range Interpretation Comments Globulin (test code = Globulin) 3.7 2.7-4.2 [facility]2017-02-05 10:42:00 Test Item Value Reference Range Interpretation Comments Albumin Lvl (test code = Albumin Lvl) 1.8 3.5-5.0 [facility]2017-02-05 10:42:00 Test Item Value Reference Range Interpretation Comments Magnesium Lvl (test code = Magnesium 2.1 1.8-2.4 Lvl) [facility] HospitalTkwskdvORBEXQFECS7520-56-56 10:42:00 Test Item Value Reference Range Interpretation Comments Acanthocyte (test code = Acanthocyte) [facility] HospitalQcllqsmIXSEXETACV2051-84-52 10:42:00 Test Item Value Reference Range Interpretation Comments Rouleaux (test code = Present *ABN*(07/26/16 Rouleaux) 4:42 AM) [facility] HospitalWlqyksqTQEWADBGDH4256-55-47 10:42:00 Test Item Value Reference Range Interpretation Comments Anisocyte (test code = 1+ *ABN*(07/26/16 4:42 Anisocyte) AM) [facility] HospitalZojwdwpRUTVFEITTP3383-54-18 10:42:00 Test Item Value Reference Range Interpretation Comments Basophils # (test code 0.1 See_Comment [Aut omated message] The = Basophils #) system which generated this result tra nsmitted reference range : <=0.2. The reference r leo was not used to int erpret this result as normal/abnormal . [facility] HospitalAwivipaPUEGTVLWQH0766-16-52 10:42:00 Test Item Value Reference Range Interpretation Comments Large Plt (test code Moderate *ABN*(07/26/16 = Large Plt) 4:42 AM) [facility] TexasUarihwcMZYAZRVFAN4793-77-27 10:42:00 Test Item Value Reference Range Interpretation Comments C4 Complement (test code = C4 42 16-47 Complement) [facility]2017-02-05 10:42:00 Test Item Value Reference Range Interpretation Comments B/C Ratio (test code = B/C Ratio) 17 6-25 [facility]2017-02-05 10:42:00 Test Item Value Reference Range Interpretation Comments ALT (test code = ALT) 1232 See_Comment [Auto mated message] The system which ge nerated this result transmit rohit reference range : <=65. The reference range was not used to interpr et this result as reji l/abnormal. [facility]2017-02-05 10:42:00 Test Item Value Reference Range Interpretation Comments A/G Ratio (test code = A/G Ratio) 0.5 0.7-1.6 [facility]2017-02-05 10:42:00 Test Item Value Reference Range Interpretation Comments Bili Total (test code = Bili Total) 0.3 0.2-1.3 [facility]2017-02-05 10:42:00 Test Item Value Reference Range Interpretation Comments Alk Phos (test code = Alk Phos) 79 39-136 [facility]2017-02-05 10:42:00 Test Item Value Reference Range Interpretation Comments AST (test code = AST) 586 See_Comment [Auto mated message] The system which ge nerated this result transmit rohit reference range : <=37. The reference range was not used to interpr et this result as reji l/abnormal. [facility]2017-02-05 10:42:00 Test Item Value Reference Range Interpretation Comments Total Protein (test code = Total 5.5 6.4-8.4 Protein) [facility]2017-02-05 10:42:00 Test Item Value Reference Range Interpretation Comments Globulin (test code = Globulin) 3.7 2.7-4.2 [facility]2017-02-05 10:42:00 Test Item Value Reference Range Interpretation Comments Albumin Lvl (test code = Albumin Lvl) 1.8 3.5-5.0 [facility]2017-02-05 10:42:00 Test Item Value Reference Range Interpretation Comments Magnesium Lvl (test code = Magnesium 2.1 1.8-2.4 Lvl) [facility] HospitalPelohiwTMOYMGCFQN8487-60-04 10:42:00 Test Item Value Reference Range Interpretation Comments Acanthocyte (test code = Acanthocyte) [facility] HospitalZyuhhqtVONWFTSQOB9231-43-89 10:42:00 Test Item Value Reference Range Interpretation Comments Rouleaux (test code = Present *ABN*(07/26/16 Rouleaux) 4:42 AM) [facility] HospitalXgvkdfwNJEPNVMLNC3212-77-91 10:42:00 Test Item Value Reference Range Interpretation Comments Anisocyte (test code = 1+ *ABN*(07/26/16 4:42 Anisocyte) AM) [facility] HospitalAskmbgvTGAMNXXFBH1672-66-22 10:42:00 Test Item Value Reference Range Interpretation Comments Basophils # (test code 0.1 See_Comment [Aut omated message] The = Basophils #) system which generated this result tra nsmitted reference range : <=0.2. The reference r leo was not used to int erpret this result as normal/abnormal . [facility] HospitalMhmnycgAZPAQFUURT2817-37-62 10:42:00 Test Item Value Reference Range Interpretation Comments Large Plt (test code Moderate *ABN*(07/26/16 = Large Plt) 4:42 AM) [facility]WbvedzjARBDUDAUZG3324-41-98 10:42:00 Test Item Value Reference Range Interpretation Comments C4 Complement (test code = C4 42 16-47 Complement) [facility]2017-02-05 10:42:00 Test Item Value Reference Range Interpretation Comments B/C Ratio (test code = B/C Ratio) 17 6-25 [facility]2017-02-05 10:42:00 Test Item Value Reference Range Interpretation Comments ALT (test code = ALT) 1232 See_Comment [Auto mated message] The system which ge nerated this result transmit rohit reference range : <=65. The reference range was not used to interpr et this result as reji l/abnormal. [facility]2017-02-05 10:42:00 Test Item Value Reference Range Interpretation Comments A/G Ratio (test code = A/G Ratio) 0.5 0.7-1.6 [facility]2017-02-05 10:42:00 Test Item Value Reference Range Interpretation Comments Bili Total (test code = Bili Total) 0.3 0.2-1.3 [facility]2017-02-05 10:42:00 Test Item Value Reference Range Interpretation Comments Alk Phos (test code = Alk Phos) 79 39-136 [facility]2017-02-05 10:42:00 Test Item Value Reference Range Interpretation Comments AST (test code = AST) 586 See_Comment [Auto mated message] The system which ge nerated this result transmit rohit reference range : <=37. The reference range was not used to interpr et this result as reji l/abnormal. [facility]2017-02-05 10:42:00 Test Item Value Reference Range Interpretation Comments Total Protein (test code = Total 5.5 6.4-8.4 Protein) [facility]2017-02-05 10:42:00 Test Item Value Reference Range Interpretation Comments Globulin (test code = Globulin) 3.7 2.7-4.2 [facility]2017-02-05 10:42:00 Test Item Value Reference Range Interpretation Comments Albumin Lvl (test code = Albumin Lvl) 1.8 3.5-5.0 [facility]2017-02-05 10:42:00 Test Item Value Reference Range Interpretation Comments Magnesium Lvl (test code = Magnesium 2.1 1.8-2.4 Lvl) [facility] HospitalJndppgoCGNOBVBZTV6873-90-67 10:42:00 Test Item Value Reference Range Interpretation Comments Acanthocyte (test code = Acanthocyte) [facility] HospitalGxfygwdGTCKKLRTMC3900-68-25 10:42:00 Test Item Value Reference Range Interpretation Comments Rouleaux (test code = Present *ABN*(07/26/16 Rouleaux) 4:42 AM) [facility] HospitalCououtgINVAIKCAYK2541-19-00 10:42:00 Test Item Value Reference Range Interpretation Comments Anisocyte (test code = 1+ *ABN*(07/26/16 4:42 Anisocyte) AM) [facility] HospitalZnxgnwqMUJNVFAVNV1839-26-17 10:42:00 Test Item Value Reference Range Interpretation Comments Basophils # (test code 0.1 See_Comment [Aut omated message] The = Basophils #) system which generated this result tra nsmitted reference range : <=0.2. The reference r leo was not used to int erpret this result as normal/abnormal . [facility] HospitalVdhhdkdSOXMLUAGFD0505-60-99 10:42:00 Test Item Value Reference Range Interpretation Comments Large Plt (test code Moderate *ABN*(07/26/16 = Large Plt) 4:42 AM) [facility] TexasJnayzykIPVPEYAYTB8020-93-55 10:42:00 Test Item Value Reference Range Interpretation Comments C4 Complement (test code = C4 42 16-47 Complement) [facility]2017-02-05 10:42:00 Test Item Value Reference Range Interpretation Comments B/C Ratio (test code = B/C Ratio) 17 6-25 [facility]2017-02-05 10:42:00 Test Item Value Reference Range Interpretation Comments ALT (test code = ALT) 1232 See_Comment [Auto mated message] The system which ge nerated this result transmit rohit reference range : <=65. The reference range was not used to interpr et this result as reji l/abnormal. [facility]2017-02-05 10:42:00 Test Item Value Reference Range Interpretation Comments A/G Ratio (test code = A/G Ratio) 0.5 0.7-1.6 [facility]2017-02-05 10:42:00 Test Item Value Reference Range Interpretation Comments Bili Total (test code = Bili Total) 0.3 0.2-1.3 [facility]2017-02-05 10:42:00 Test Item Value Reference Range Interpretation Comments Alk Phos (test code = Alk Phos) 79 39-136 [facility]2017-02-05 10:42:00 Test Item Value Reference Range Interpretation Comments AST (test code = AST) 586 See_Comment [Auto mated message] The system which ge nerated this result transmit rohit reference range : <=37. The reference range was not used to interpr et this result as reji l/abnormal. [facility]2017-02-05 10:42:00 Test Item Value Reference Range Interpretation Comments Total Protein (test code = Total 5.5 6.4-8.4 Protein) [facility]2017-02-05 10:42:00 Test Item Value Reference Range Interpretation Comments Globulin (test code = Globulin) 3.7 2.7-4.2 [facility]2017-02-05 10:42:00 Test Item Value Reference Range Interpretation Comments Albumin Lvl (test code = Albumin Lvl) 1.8 3.5-5.0 [facility] TexasCHEM [id number] 10:42:00 Test Item Value Reference Range Interpretation Comments Magnesium Lvl (test code = Magnesium 2.1 1.8-2.4 Lvl) [facility] TexasTraogwmVPVOMCEUGB4268-21-64 10:42:00 Test Item Value Reference Range Interpretation Comments Acanthocyte (test code = Acanthocyte) [facility] HospitalUqdejulYXLTXYUTNI1790-03-39 10:42:00 Test Item Value Reference Range Interpretation Comments Rouleaux (test code = Present *ABN*(07/26/16 Rouleaux) 4:42 AM) [facility] HospitalGosqizkWCSUAHCJKZ4746-24-83 10:42:00 Test Item Value Reference Range Interpretation Comments Anisocyte (test code = 1+ *ABN*(07/26/16 4:42 Anisocyte) AM) [facility] HospitalZqwprhuYQJJWQMQSQ5505-90-51 10:42:00 Test Item Value Reference Range Interpretation Comments Basophils # (test code 0.1 See_Comment [Aut omated message] The = Basophils #) system which generated this result tra nsmitted reference range : <=0.2. The reference r leo was not used to int erpret this result as normal/abnormal . [facility] TexasJfyvzzwMWVOJZXSQW8214-60-80 10:42:00 Test Item Value Reference Range Interpretation Comments Large Plt (test code Moderate *ABN*(07/26/16 = Large Plt) 4:42 AM) [facility] TexasBessirpGKLPTEHVBC4393-22-27 10:42:00 Test Item Value Reference Range Interpretation Comments C4 Complement (test code = C4 42 16-47 Complement) [facility] AND [id number] 16:34:00 Test Item Value Reference Range Interpretation Comments UA Sq Epi (test code = UA Sq Epi) None Seen [facility] AND [id number] 16:34:00 Test Item Value Reference Range Interpretation Comments UA Waxy Cast (test code = UA Waxy Cast) 1 [facility] AND [id number] 16:34:00 Test Item Value Reference Range Interpretation Comments UA Hyal Cast (test 4 See_Comment [Automat ed message] The code = UA Hyal Cast) system which generated this result transmit rohit reference range : <=2. The reference range was not used to interpr et this result as reji l/abnormal. [facility] AND [id number] 16:34:00 Test Item Value Reference Range Interpretation Comments UA Bacteria (test code = UA Occasional /HPF Bacteria) [facility] AND [id number] 16:34:00 Test Item Value Reference Range Interpretation Comments UA Mucus (test code = UA Mucus) Few /LPF [facility] AND [id number] 16:34:00 Test Item Value Reference Range Interpretation Comments UA Amorph Destiny (test code = Occasional /HPF UA Amorph Destiny) [facility] AND [id number] 16:34:00 Test Item Value Reference Range Interpretation Comments UA Leuk Est (test Negative (07/25/16 10:34 code = UA Leuk Est) AM) [facility] AND [id number] 16:34:00 Test Item Value Reference Range Interpretation Comments UA Nitrite (test code Negative (07/25/16 10:34 = UA Nitrite) AM) [facility] AND [id number] 16:34:00 Test Item Value Reference Range Interpretation Comments UA RBC (test code = 2 See_Comment [Automa rohit message] The UA RBC) system which ge nerated this result transmit rohit reference range : <=2. The reference range was not used to interpr et this result as reji l/abnormal. [facility] AND [id number] 16:34:00 Test Item Value Reference Range Interpretation Comments UA WBC (test code = 6 See_Comment [Automa rohit message] The UA WBC) system which ge nerated this result transmit rohit reference range : <=5. The reference range was not used to interpr et this result as reji l/abnormal. [facility] AND [id number] 16:34:00 Test Item Value Reference Range Interpretation Comments UA Urobilinogen (test code = UA 2.0 0.1-1.0 Urobilinogen) [facility] AND [id number] 16:34:00 Test Item Value Reference Range Interpretation Comments UA Ketones (test code = UA Negative mg/dL Ketones) [facility] AND [id number] 16:34:00 Test Item Value Reference Range Interpretation Comments UA Glucose (test code = UA Glucose) 70 mg/dL [facility] AND [id number] 16:34:00 Test Item Value Reference Range Interpretation Comments UA Blood (test code = Negative (07/25/16 10:34 UA Blood) AM) [facility] AND [id number] 16:34:00 Test Item Value Reference Range Interpretation Comments UA Bili (test code = Negative *NA*(07/25/16 UA Bili) 10:34 AM) [facility] AND [id number] 16:34:00 Test Item Value Reference Range Interpretation Comments UA Protein (test code = UA >=300 mg/dL Protein) [facility] AND [id number] 16:34:00 Test Item Value Reference Range Interpretation Comments UA Spec Grav (test code = UA Spec Grav) 1.012 [facility] AND [id number] 16:34:00 Test Item Value Reference Range Interpretation Comments UA pH (test code = UA pH) 5.5 5.0-8.0 [facility] AND [id number] 16:34:00 Test Item Value Reference Range Interpretation Comments UA Turbidity (test code Slight *ABN*(07/25/16 = UA Turbidity) 10:34 AM) [facility] AND [id number] 16:34:00 Test Item Value Reference Range Interpretation Comments UA Color (test code = Dark Yellow *NA*(07/25/16 UA Color) 10:34 AM) [facility] AND [id number] 16:34:00 Test Item Value Reference Range Interpretation Comments UA Gran Cast (test code = UA Gran Cast) 9 [facility]2017-02-04 16:34:00 Test Item Value Reference Range Interpretation Comments U Sodium (test code = U Sodium) 30 [facility]2017-02-04 16:34:00 Test Item Value Reference Range Interpretation Comments U Prot/Creat (test code = U Prot/Creat) 3.1 [facility]2017-02-04 16:34:00 Test Item Value Reference Range Interpretation Comments U Protein (test code = U Protein) 420.9 [facility]2017-02-04 16:34:00 Test Item Value Reference Range Interpretation Comments U Creatinine (test code = U 136.00 Creatinine) [facility] AND [id number] 16:34:00 Test Item Value Reference Range Interpretation Comments UA Sq Epi (test code = UA Sq Epi) None Seen [facility] AND [id number] 16:34:00 Test Item Value Reference Range Interpretation Comments UA Waxy Cast (test code = UA Waxy Cast) 1 [facility] AND [id number] 16:34:00 Test Item Value Reference Range Interpretation Comments UA Hyal Cast (test 4 See_Comment [Automat ed message] The code = UA Hyal Cast) system which generated this result transmit rohit reference range : <=2. The reference range was not used to interpr et this result as reji l/abnormal. [facility] AND [id number] 16:34:00 Test Item Value Reference Range Interpretation Comments UA Bacteria (test code = UA Occasional /HPF Bacteria) [facility] AND [id number] 16:34:00 Test Item Value Reference Range Interpretation Comments UA Mucus (test code = UA Mucus) Few /LPF [facility] AND [id number] 16:34:00 Test Item Value Reference Range Interpretation Comments UA Amorph Destiny (test code = Occasional /HPF UA Amorph Destiny) [facility] AND [id number] 16:34:00 Test Item Value Reference Range Interpretation Comments UA Leuk Est (test Negative (07/25/16 10:34 code = UA Leuk Est) AM) [facility] AND [id number] 16:34:00 Test Item Value Reference Range Interpretation Comments UA Nitrite (test code Negative (07/25/16 10:34 = UA Nitrite) AM) [facility] AND [id number] 16:34:00 Test Item Value Reference Range Interpretation Comments UA RBC (test code = 2 See_Comment [Automa rohit message] The UA RBC) system which ge nerated this result transmit rohit reference range : <=2. The reference range was not used to interpr et this result as reji l/abnormal. [facility] AND [id number] 16:34:00 Test Item Value Reference Range Interpretation Comments UA WBC (test code = 6 See_Comment [Automa rohit message] The UA WBC) system which ge nerated this result transmit rohit reference range : <=5. The reference range was not used to interpr et this result as reji l/abnormal. [facility] AND [id number] 16:34:00 Test Item Value Reference Range Interpretation Comments UA Urobilinogen (test code = UA 2.0 0.1-1.0 Urobilinogen) [facility] AND [id number] 16:34:00 Test Item Value Reference Range Interpretation Comments UA Ketones (test code = UA Negative mg/dL Ketones) [facility] AND [id number] 16:34:00 Test Item Value Reference Range Interpretation Comments UA Glucose (test code = UA Glucose) 70 mg/dL [facility] AND [id number] 16:34:00 Test Item Value Reference Range Interpretation Comments UA Blood (test code = Negative (07/25/16 10:34 UA Blood) AM) [facility] AND [id number] 16:34:00 Test Item Value Reference Range Interpretation Comments UA Bili (test code = Negative *NA*(07/25/16 UA Bili) 10:34 AM) [facility] AND [id number] 16:34:00 Test Item Value Reference Range Interpretation Comments UA Protein (test code = UA >=300 mg/dL Protein) [facility] AND [id number] 16:34:00 Test Item Value Reference Range Interpretation Comments UA Spec Grav (test code = UA Spec Grav) 1.012 [facility] AND [id number] 16:34:00 Test Item Value Reference Range Interpretation Comments UA pH (test code = UA pH) 5.5 5.0-8.0 [facility] AND [id number] 16:34:00 Test Item Value Reference Range Interpretation Comments UA Turbidity (test code Slight *ABN*(07/25/16 = UA Turbidity) 10:34 AM) [facility] AND [id number] 16:34:00 Test Item Value Reference Range Interpretation Comments UA Color (test code = Dark Yellow *NA*(07/25/16 UA Color) 10:34 AM) [facility] AND [id number] 16:34:00 Test Item Value Reference Range Interpretation Comments UA Gran Cast (test code = UA Gran Cast) 9 [facility] [id number] 16:34:00 Test Item Value Reference Range Interpretation Comments U Sodium (test code = U Sodium) 30 [facility]2017-02-04 16:34:00 Test Item Value Reference Range Interpretation Comments U Prot/Creat (test code = U Prot/Creat) 3.1 [facility]2017-02-04 16:34:00 Test Item Value Reference Range Interpretation Comments U Protein (test code = U Protein) 420.9 [facility]2017-02-04 16:34:00 Test Item Value Reference Range Interpretation Comments U Creatinine (test code = U 136.00 Creatinine) [facility] AND [id number] 16:34:00 Test Item Value Reference Range Interpretation Comments UA Sq Epi (test code = UA Sq Epi) None Seen [facility] AND [id number] 16:34:00 Test Item Value Reference Range Interpretation Comments UA Waxy Cast (test code = UA Waxy Cast) 1 [facility] AND [id number] 16:34:00 Test Item Value Reference Range Interpretation Comments UA Hyal Cast (test 4 See_Comment [Automat ed message] The code = UA Hyal Cast) system which generated this result transmit rohit reference range : <=2. The reference range was not used to interpr et this result as reji l/abnormal. [facility] AND [id number] 16:34:00 Test Item Value Reference Range Interpretation Comments UA Bacteria (test code = UA Occasional /HPF Bacteria) [facility] AND [id number] 16:34:00 Test Item Value Reference Range Interpretation Comments UA Mucus (test code = UA Mucus) Few /LPF [facility] AND [id number] 16:34:00 Test Item Value Reference Range Interpretation Comments UA Amorph Destiny (test code = Occasional /HPF UA Amorph Dsetiny) [facility] AND [id number] 16:34:00 Test Item Value Reference Range Interpretation Comments UA Leuk Est (test Negative (07/25/16 10:34 code = UA Leuk Est) AM) [facility] AND [id number] 16:34:00 Test Item Value Reference Range Interpretation Comments UA Nitrite (test code Negative (07/25/16 10:34 = UA Nitrite) AM) [facility] AND [id number] 16:34:00 Test Item Value Reference Range Interpretation Comments UA RBC (test code = 2 See_Comment [Automa rohit message] The UA RBC) system which ge nerated this result transmit rohit reference range : <=2. The reference range was not used to interpr et this result as reji l/abnormal. [facility] AND [id number] 16:34:00 Test Item Value Reference Range Interpretation Comments UA WBC (test code = 6 See_Comment [Automa rohit message] The UA WBC) system which ge nerated this result transmit rohit reference range : <=5. The reference range was not used to interpr et this result as rjei l/abnormal. [facility] AND [id number] 16:34:00 Test Item Value Reference Range Interpretation Comments UA Urobilinogen (test code = UA 2.0 0.1-1.0 Urobilinogen) [facility] AND [id number] 16:34:00 Test Item Value Reference Range Interpretation Comments UA Ketones (test code = UA Negative mg/dL Ketones) [facility] AND [id number] 16:34:00 Test Item Value Reference Range Interpretation Comments UA Glucose (test code = UA Glucose) 70 mg/dL [facility] AND [id number] 16:34:00 Test Item Value Reference Range Interpretation Comments UA Blood (test code = Negative (07/25/16 10:34 UA Blood) AM) [facility] AND [id number] 16:34:00 Test Item Value Reference Range Interpretation Comments UA Bili (test code = Negative *NA*(07/25/16 UA Bili) 10:34 AM) [facility] AND [id number] 16:34:00 Test Item Value Reference Range Interpretation Comments UA Protein (test code = UA >=300 mg/dL Protein) [facility] AND [id number] 16:34:00 Test Item Value Reference Range Interpretation Comments UA Spec Grav (test code = UA Spec Grav) 1.012 [facility] AND [id number] 16:34:00 Test Item Value Reference Range Interpretation Comments UA pH (test code = UA pH) 5.5 5.0-8.0 [facility] AND [id number] 16:34:00 Test Item Value Reference Range Interpretation Comments UA Turbidity (test code Slight *ABN*(07/25/16 = UA Turbidity) 10:34 AM) [facility] AND [id number] 16:34:00 Test Item Value Reference Range Interpretation Comments UA Color (test code = Dark Yellow *NA*(07/25/16 UA Color) 10:34 AM) [facility] AND [id number] 16:34:00 Test Item Value Reference Range Interpretation Comments UA Gran Cast (test code = UA Gran Cast) 9 [facility]2017-02-04 16:34:00 Test Item Value Reference Range Interpretation Comments U Sodium (test code = U Sodium) 30 [facility]2017-02-04 16:34:00 Test Item Value Reference Range Interpretation Comments U Prot/Creat (test code = U Prot/Creat) 3.1 [facility]2017-02-04 16:34:00 Test Item Value Reference Range Interpretation Comments U Protein (test code = U Protein) 420.9 [facility]2017-02-04 16:34:00 Test Item Value Reference Range Interpretation Comments U Creatinine (test code = U 136.00 Creatinine) [facility] AND [id number] 16:34:00 Test Item Value Reference Range Interpretation Comments UA Sq Epi (test code = UA Sq Epi) None Seen [facility] AND [id number] 16:34:00 Test Item Value Reference Range Interpretation Comments UA Waxy Cast (test code = UA Waxy Cast) 1 [facility] AND [id number] 16:34:00 Test Item Value Reference Range Interpretation Comments UA Hyal Cast (test 4 See_Comment [Automat ed message] The code = UA Hyal Cast) system which generated this result transmit rohit reference range : <=2. The reference range was not used to interpr et this result as reji l/abnormal. [facility] AND [id number] 16:34:00 Test Item Value Reference Range Interpretation Comments UA Bacteria (test code = UA Occasional /HPF Bacteria) [facility] AND [id number] 16:34:00 Test Item Value Reference Range Interpretation Comments UA Mucus (test code = UA Mucus) Few /LPF [facility] AND [id number] 16:34:00 Test Item Value Reference Range Interpretation Comments UA Amorph Destiny (test code = Occasional /HPF UA Amorph Destiny) [facility] AND [id number] 16:34:00 Test Item Value Reference Range Interpretation Comments UA Leuk Est (test Negative (07/25/16 10:34 code = UA Leuk Est) AM) [facility] AND [id number] 16:34:00 Test Item Value Reference Range Interpretation Comments UA Nitrite (test code Negative (07/25/16 10:34 = UA Nitrite) AM) [facility] AND [id number] 16:34:00 Test Item Value Reference Range Interpretation Comments UA RBC (test code = 2 See_Comment [Automa rohit message] The UA RBC) system which ge nerated this result transmit rohit reference range : <=2. The reference range was not used to interpr et this result as reji l/abnormal. [facility] AND [id number] 16:34:00 Test Item Value Reference Range Interpretation Comments UA WBC (test code = 6 See_Comment [Automa rohit message] The UA WBC) system which ge nerated this result transmit rohit reference range : <=5. The reference range was not used to interpr et this result as reji l/abnormal. [facility] AND [id number] 16:34:00 Test Item Value Reference Range Interpretation Comments UA Urobilinogen (test code = UA 2.0 0.1-1.0 Urobilinogen) [facility] AND [id number] 16:34:00 Test Item Value Reference Range Interpretation Comments UA Ketones (test code = UA Negative mg/dL Ketones) [facility] AND [id number] 16:34:00 Test Item Value Reference Range Interpretation Comments UA Glucose (test code = UA Glucose) 70 mg/dL [facility] AND [id number] 16:34:00 Test Item Value Reference Range Interpretation Comments UA Blood (test code = Negative (07/25/16 10:34 UA Blood) AM) [facility] AND [id number] 16:34:00 Test Item Value Reference Range Interpretation Comments UA Bili (test code = Negative *NA*(07/25/16 UA Bili) 10:34 AM) [facility] AND [id number] 16:34:00 Test Item Value Reference Range Interpretation Comments UA Protein (test code = UA >=300 mg/dL Protein) [facility] AND [id number] 16:34:00 Test Item Value Reference Range Interpretation Comments UA Spec Grav (test code = UA Spec Grav) 1.012 [facility] AND [id number] 16:34:00 Test Item Value Reference Range Interpretation Comments UA pH (test code = UA pH) 5.5 5.0-8.0 [facility] AND [id number] 16:34:00 Test Item Value Reference Range Interpretation Comments UA Turbidity (test code Slight *ABN*(07/25/16 = UA Turbidity) 10:34 AM) [facility] AND [id number] 16:34:00 Test Item Value Reference Range Interpretation Comments UA Color (test code = Dark Yellow *NA*(07/25/16 UA Color) 10:34 AM) [facility] AND [id number] 16:34:00 Test Item Value Reference Range Interpretation Comments UA Gran Cast (test code = UA Gran Cast) 9 [facility]2017-02-04 16:34:00 Test Item Value Reference Range Interpretation Comments U Sodium (test code = U Sodium) 30 [facility]2017-02-04 16:34:00 Test Item Value Reference Range Interpretation Comments U Prot/Creat (test code = U Prot/Creat) 3.1 [facility]2017-02-04 16:34:00 Test Item Value Reference Range Interpretation Comments U Protein (test code = U Protein) 420.9 [facility]2017-02-04 16:34:00 Test Item Value Reference Range Interpretation Comments U Creatinine (test code = U 136.00 Creatinine) [facility] [id number] 08:55:00 Test Item Value Reference Range Interpretation Comments Magnesium Lvl (test code = Magnesium 2.0 1.8-2.4 Lvl) [facility] [id number] 08:55:00 Test Item Value Reference Range Interpretation Comments Phosphorus (test code = Phosphorus) 5.2 2.5-4.5 [facility] [id number] 08:55:00 Test Item Value Reference Range Interpretation Comments Magnesium Lvl (test code = Magnesium 2.0 1.8-2.4 Lvl) [facility] [id number] 08:55:00 Test Item Value Reference Range Interpretation Comments Phosphorus (test code = Phosphorus) 5.2 2.5-4.5 [facility]2017-02-04 08:55:00 Test Item Value Reference Range Interpretation Comments Magnesium Lvl (test code = Magnesium 2.0 1.8-2.4 Lvl) [facility]2017-02-04 08:55:00 Test Item Value Reference Range Interpretation Comments Phosphorus (test code = Phosphorus) 5.2 2.5-4.5 [facility]2017-02-04 08:55:00 Test Item Value Reference Range Interpretation Comments Magnesium Lvl (test code = Magnesium 2.0 1.8-2.4 Lvl) [facility]2017-02-04 08:55:00 Test Item Value Reference Range Interpretation Comments Phosphorus (test code = Phosphorus) 5.2 2.5-4.5 [facility] [id number] 17:29:00 Test Item Value Reference Range Interpretation Comments Troponin-I (test code 0.28 See_Comment [Auto mated message] The = Troponin-I) system which g enerated this result transmit rohit reference range : <=0.40. The reference r leo was not used to interpr et this result as reji l/abnormal. [facility] [id number] 17:29:00 Test Item Value Reference Range Interpretation Comments Total CK (test code = Total CK) 2616 12191 [facility] [id number] 17:29:00 Test Item Value Reference Range Interpretation Comments Troponin-T (test code 0.144 See_Comment [Auto mated message] The = Troponin-T) system which g enerated this result transmit rohit reference range : <=0.100. The reference r leo was not used to interpr et this result as reji l/abnormal. [facility] [facility] [id number] 17:29:00 Test Item Value Reference Range Interpretation Comments CK MB Index (test 0.2 See_Comment [Automate d message] The code = CK MB Index) system w [facility] generated this result transmit rohit reference range : <=2.5. The reference range was not used to interpr et this result as reji l/abnormal. [facility] [employer] [id number] 17:29:00 Test Item Value Reference Range Interpretation Comments CK MB (test code = CK MB) 6.3 0.5-3.6 [facility] VicesLAURAAC [id number] 17:29:00 Test Item Value Reference Range Interpretation Comments Troponin-I (test code 0.28 See_Comment [Auto mated message] The = Troponin-I) system which g enerated this result transmit rohit reference range : <=0.40. The reference r leo was not used to interpr et this result as reji l/abnormal. [facility] [employer] [facility] [id number] 17:29:00 Test Item Value Reference Range Interpretation Comments Total CK (test code = Total CK) 2616 12-191 [facility] [id number] 17:29:00 Test Item Value Reference Range Interpretation Comments Troponin-T (test code 0.144 See_Comment [Auto mated message] The = Troponin-T) system which g enerated this result transmit rohit reference range : <=0.100. The reference r leo was not used to interpr et this result as reji l/abnormal. [facility] CenterAssertID2017-02-03 17:29:00 Test Item Value Reference Range Interpretation Comments CK MB Index (test 0.2 See_Comment [Automate d message] The code = CK MB Index) system w [facility] generated this result transmit rohit reference range : <=2.5. The reference range was not used to interpr et this result as reji l/abnormal. [facility] CenterAssertID2017-02-03 17:29:00 Test Item Value Reference Range Interpretation Comments CK MB (test code = CK MB) 6.3 0.5-3.6 [facility] [id number] 17:29:00 Test Item Value Reference Range Interpretation Comments Troponin-I (test code 0.28 See_Comment [Auto mated message] The = Troponin-I) system which g enerated this result transmit rohit reference range : <=0.40. The reference r leo was not used to interpr et this result as reji l/abnormal. [facility] [employer]2017-02-03 17:29:00 Test Item Value Reference Range Interpretation Comments Total CK (test code = Total CK) 2615 [facility] CenterAssertID2017-02-03 17:29:00 Test Item Value Reference Range Interpretation Comments Troponin-T (test code 0.144 See_Comment [Auto mated message] The = Troponin-T) system which g enerated this result transmit rohit reference range : <=0.100. The reference r leo was not used to interpr et this result as reji l/abnormal. [facility] CenterAssertID2017-02-03 17:29:00 Test Item Value Reference Range Interpretation Comments CK MB Index (test 0.2 See_Comment [Automate d message] The code = CK MB Index) system w [facility] generated this result transmit rohit reference range : <=2.5. The reference range was not used to interpr et this result as reji l/abnormal. [facility] [employer]2017-02-03 17:29:00 Test Item Value Reference Range Interpretation Comments CK MB (test code = CK MB) 6.3 0.5-3.6 [facility] [id number] 17:29:00 Test Item Value Reference Range Interpretation Comments Troponin-I (test code 0.28 See_Comment [Auto mated message] The = Troponin-I) system which g enerated this result transmit rohit reference range : <=0.40. The reference r leo was not used to interpr et this result as reji l/abnormal. [facility] CenterAssertID2017-02-03 17:29:00 Test Item Value Reference Range Interpretation Comments Total CK (test code = Total CK) 2615 [facility] [id number] 17:29:00 Test Item Value Reference Range Interpretation Comments Troponin-T (test code 0.144 See_Comment [Auto mated message] The = Troponin-T) system which g enerated this result transmit rohit reference range : <=0.100. The reference r leo was not used to interpr et this result as reji l/abnormal. [facility] [employer]2017-02-03 17:29:00 Test Item Value Reference Range Interpretation Comments CK MB Index (test 0.2 See_Comment [Automate d message] The code = CK MB Index) system w [facility] generated this result transmit rohit reference range : <=2.5. The reference range was not used to interpr et this result as reji l/abnormal. [facility] [id number] 17:29:00 Test Item Value Reference Range Interpretation Comments CK MB (test code = CK MB) 6.3 0.5-3.6 [facility] [id number] 11:20:00 Test Item Value Reference Range Interpretation Comments Troponin-I (test code 0.38 See_Comment [Auto mated message] The = Troponin-I) system which g enerated this result transmit rohit reference range : <=0.40. The reference r leo was not used to interpr et this result as reji l/abnormal. [facility] [employer]AC [id number] 11:20:00 Test Item Value Reference Range Interpretation Comments Troponin-T (test code 0.173 See_Comment [Auto mated message] The = Troponin-T) system which g enerated this result transmit rohit reference range : <=0.100. The reference r leo was not used to interpr et this result as reji l/abnormal. [facility] [employer] [id number] 11:20:00 Test Item Value Reference Range Interpretation Comments CK MB Index (test 0.2 See_Comment [Automate d message] The code = CK MB Index) system w [facility] generated this result transmit rohit reference range : <=2.5. The reference range was not used to interpr et this result as reji l/abnormal. [facility] [employer]ARD[employer] [id number] 11:20:00 Test Item Value Reference Range Interpretation Comments CK MB (test code = CK MB) 5.6 0.5-3.6 [facility] AgradisannCHEM [id number] 11:20:00 Test Item Value Reference Range Interpretation Comments Phosphorus (test code = Phosphorus) 5.5 2.5-4.5 [facility] [id number] 11:20:00 Test Item Value Reference Range Interpretation Comments Troponin-I (test code 0.38 See_Comment [Auto mated message] The = Troponin-I) system which g enerated this result transmit rohit reference range : <=0.40. The reference r leo was not used to interpr et this result as reji l/abnormal. [facility] [employer] [id number] 11:20:00 Test Item Value Reference Range Interpretation Comments Troponin-T (test code 0.173 See_Comment [Auto mated message] The = Troponin-T) system which g enerated this result transmit rohit reference range : <=0.100. The reference r leo was not used to interpr et this result as reji l/abnormal. [facility] [employer])2017-02-03 11:20:00 Test Item Value Reference Range Interpretation Comments CK MB Index (test 0.2 See_Comment [Automate d message] The code = CK MB Index) system w [facility] generated this result transmit rohit reference range : <=2.5. The reference range was not used to interpr et this result as reji l/abnormal. [facility] [employer] ([employer])2017-02-03 11:20:00 Test Item Value Reference Range Interpretation Comments CK MB (test code = CK MB) 5.6 0.5-3.6 [facility] [id number] 11:20:00 Test Item Value Reference Range Interpretation Comments Phosphorus (test code = Phosphorus) 5.5 2.5-4.5 [facility] [employer] ([employer])2017-02-03 11:20:00 Test Item Value Reference Range Interpretation Comments Troponin-I (test code 0.38 See_Comment [Auto mated message] The = Troponin-I) system which g enerated this result transmit rohit reference range : <=0.40. The reference r leo was not used to interpr et this result as reji l/abnormal. [facility] [employer] ([employer])2017-02-03 11:20:00 Test Item Value Reference Range Interpretation Comments Troponin-T (test code 0.173 See_Comment [Auto mated message] The = Troponin-T) system which g enerated this result transmit rohit reference range : <=0.100. The reference r leo was not used to interpr et this result as reji l/abnormal. [facility] [employer] ([employer])2017-02-03 11:20:00 Test Item Value Reference Range Interpretation Comments CK MB Index (test 0.2 See_Comment [Automate d message] The code = CK MB Index) system w [facility] generated this result transmit rohit reference range : <=2.5. The reference range was not used to interpr et this result as reji l/abnormal. [facility] [employer] ([employer])2017-02-03 11:20:00 Test Item Value Reference Range Interpretation Comments CK MB (test code = CK MB) 5.6 0.5-3.6 [facility] [employer] [id number] 11:20:00 Test Item Value Reference Range Interpretation Comments Phosphorus (test code = Phosphorus) 5.5 2.5-4.5 [facility] [employer] ([employer])2017-02-03 11:20:00 Test Item Value Reference Range Interpretation Comments Troponin-I (test code 0.38 See_Comment [Auto mated message] The = Troponin-I) system which g enerated this result transmit rohit reference range : <=0.40. The reference r leo was not used to interpr et this result as reji l/abnormal. [facility] [employer] ([employer])2017-02-03 11:20:00 Test Item Value Reference Range Interpretation Comments Troponin-T (test code 0.173 See_Comment [Auto mated message] The = Troponin-T) system which g enerated this result transmit rohit reference range : <=0.100. The reference r leo was not used to interpr et this result as reji l/abnormal. [facility] [employer] ([employer])2017-02-03 11:20:00 Test Item Value Reference Range Interpretation Comments CK MB Index (test 0.2 See_Comment [Automate d message] The code = CK MB Index) system w [employer] generated this result transmit rohit reference range : <=2.5. The reference range was not used to interpr et this result as reji l/abnormal. [facility] [employer] ([employer])2017-02-03 11:20:00 Test Item Value Reference Range Interpretation Comments CK MB (test code = CK MB) 5.6 0.5-3.6 [facility] [employer] [id number] 11:20:00 Test Item Value Reference Range Interpretation Comments Phosphorus (test code = Phosphorus) 5.5 2.5-4.5 [facility] [employer] ([employer])2017-02-03 06:18:00 Test Item Value Reference Range Interpretation Comments BNP (test code = BNP) 701 [facility] [employer] ([employer])2017-02-03 06:18:00 Test Item Value Reference Range Interpretation Comments BNP (test code = BNP) 701 [facility] [id number] 06:18:00 Test Item Value Reference Range Interpretation Comments BNP (test code = BNP) 701 [facility] [id number] 06:18:00 Test Item Value Reference Range Interpretation Comments BNP (test code = BNP) 701 [facility] [facility] [id number] 04:59:27 Test Item Value Reference Range Interpretation Comments Troponin-I (test code 0.57 See_Comment [Auto mated message] The = Troponin-I) system which g enerated this result transmit rohit reference range : <=0.40. The reference r leo was not used to interpr et this result as reji l/abnormal. [facility] [employer] [facility] [id number] 04:59:27 Test Item Value Reference Range Interpretation Comments Troponin-I (test code 0.57 See_Comment [Auto mated message] The = Troponin-I) system which g enerated this result transmit rohit reference range : <=0.40. The reference r leo was not used to interpr et this result as reji l/abnormal. [facility] [employer] [facility] [id number] 04:59:27 Test Item Value Reference Range Interpretation Comments Troponin-I (test code 0.57 See_Comment [Auto mated message] The = Troponin-I) system which g enerated this result transmit rohit reference range : <=0.40. The reference r leo was not used to interpr et this result as reji l/abnormal. [facility] 04:59:27 Test Item Value Reference Range Interpretation Comments Troponin-I (test code 0.57 See_Comment [Auto mated message] The = Troponin-I) system which g enerated this result transmit rohit reference range : <=0.40. The reference r leo was not used to interpr et this result as reji l/abnormal. [facility] [employer]2016-12-26 10:22:00 Test Item Value Reference Range Interpretation Comments BNP (test code = BNP) 526 [facility]2016-12-26 10:22:00 Test Item Value Reference Range Interpretation Comments Magnesium Lvl (test code = Magnesium 2.1 1.8-2.4 Lvl) [facility]2016-12-26 10:22:00 Test Item Value Reference Range Interpretation Comments Glucose Lvl (test code = Glucose Lvl) 117 70-99 [facility]2016-12-26 10:22:00 Test Item Value Reference Range Interpretation Comments BUN (test code = BUN) 41 7-22 [facility]2016-12-26 10:22:00 Test Item Value Reference Range Interpretation Comments Creatinine Lvl (test code = Creatinine 2.00 0.50-1.40 Lvl) [facility]2016-12-26 10:22:00 Test Item Value Reference Range Interpretation Comments Calcium Lvl (test code = Calcium Lvl) 9.0 8.5-10.5 [facility]2016-12-26 10:22:00 Test Item Value Reference Range Interpretation Comments Chloride Lvl (test code = Chloride Lvl) 102 95-109 [facility]2016-12-26 10:22:00 Test Item Value Reference Range Interpretation Comments CO2 (test code = CO2) 33 24-32 [facility]2016-12-26 10:22:00 Test Item Value Reference Range Interpretation Comments Sodium Lvl (test code = Sodium Lvl) 144 135-145 [facility]2016-12-26 10:22:00 Test Item Value Reference Range Interpretation Comments Potassium Lvl (test code = Potassium 4.0 3.5-5.1 Lvl) [facility]2016-12-26 10:22:00 Test Item Value Reference Range Interpretation Comments eGFR (test code = eGFR) 32 [facility]2016-12-26 10:22:00 Test Item Value Reference Range Interpretation Comments AGAP (test code = AGAP) 13.0 10.0-20.0 [facility]2016-12-26 10:22:00 Test Item Value Reference Range Interpretation Comments Phosphorus (test code = Phosphorus) 4.6 2.5-4.5 [facility] H[id number] 10:22:00 Test Item Value Reference Range Interpretation Comments RBC (test code = RBC) 3.68 4.20-5.40 [facility] H[id number] 10:22:00 Test Item Value Reference Range Interpretation Comments Hgb (test code = Hgb) 9.9 12.0-16.0 [facility] H[id number] 10:22:00 Test Item Value Reference Range Interpretation Comments MCH (test code = MCH) 26.8 pg 27.0-31.0 [facility] HospitalLbwollnUPNXZNVDYF2769-77-39 10:22:00 Test Item Value Reference Range Interpretation Comments MCHC (test code = MCHC) 34.2 32.0-36.0 [facility] HospitalLhretioHDTJQGYTEQ2405-47-07 10:22:00 Test Item Value Reference Range Interpretation Comments MCV (test code = MCV) 78.3 80.0-98.0 [facility] HospitalQdiyaipHOMEHQVFDR7811-56-00 10:22:00 Test Item Value Reference Range Interpretation Comments Hct (test code = Hct) 28.8 36.0-48.0 [facility] HospitalPjjwjzzNRXEXJBHJT1668-74-63 10:22:00 Test Item Value Reference Range Interpretation Comments Platelet (test code = Platelet) 191 133-450 [facility] Hos[id number] 10:22:00 Test Item Value Reference Range Interpretation Comments MPV (test code = MPV) 9.5 7.4-10.4 [facility] HospitalYfrvrfrKXJUCOYHVX4611-92-38 10:22:00 Test Item Value Reference Range Interpretation Comments RDW (test code = RDW) 15.3 11.5-14.5 [facility] HospitalCqmeobjGAOUTVPDHV9195-61-34 10:22:00 Test Item Value Reference Range Interpretation Comments WBC (test code = WBC) 5.6 3.7-10.4 [facility] HospitalBjyibngUKTWGVZCEX3245-55-11 10:22:00 Test Item Value Reference Range Interpretation Comments Eosinophils # (test code 0.5 See_Comment [A utomated message] The = Eosinophils #) system whic h generated this result tra nsmitted reference range : <=0.5. The reference r leo was not used to int erpret this result as normal/abnormal . [facility] HospitalClyphkaFPEARZMPNX1813-36-28 10:22:00 Test Item Value Reference Range Interpretation Comments Microcyte (test code = 1+ *ABN*(06/15/16 Microcyte) 4:22 AM) [facility] HospitalXxogjdeLGWCPBXVQU0328-63-71 10:22:00 Test Item Value Reference Range Interpretation Comments Basophils # (test code 0.1 See_Comment [Aut omated message] The = Basophils #) system which generated this result tra nsmitted reference range : <=0.2. The reference r leo was not used to int erpret this result as normal/abnormal . [facility] HospitalGptywdzIABBCZZFYT9187-32-05 10:22:00 Test Item Value Reference Range Interpretation Comments Lymphocytes (test code = Lymphocytes) 33.5 20.0-40.0 [facility] HospitalDqbecaqMMJOLYNLAT4493-24-35 10:22:00 Test Item Value Reference Range Interpretation Comments Segs (test code = Segs) 47.6 45.0-75.0 [facility] HospitalKiilsnuPQVXMVMWEO6083-12-97 10:22:00 Test Item Value Reference Range Interpretation Comments Monocytes (test code = Monocytes) 8.4 2.0-12.0 [facility] HospitalAbvganxZSFQXBXAOC5320-82-81 10:22:00 Test Item Value Reference Range Interpretation Comments Eosinophils (test code = 9.4 See_Comment [A utomated message] The Eosinophils) system which ge nerated this result tra nsmitted reference range : <=4.0. The reference r leo was not used to int erpret this result as normal/abnormal . [facility] HospitalFpmprnjBWWSAMLPKC4904-47-17 10:22:00 Test Item Value Reference Range Interpretation Comments Segs-Bands # (test code = Segs-Bands #) 2.6 1.5-8.1 [facility] HospitalRefeqwaZHFQLTQSFQ3150-26-21 10:22:00 Test Item Value Reference Range Interpretation Comments Lymphocytes # (test code = Lymphocytes 1.9 1.0-5.5 #) [facility] HospitalFctselvRSYEBMPQNA5062-60-48 10:22:00 Test Item Value Reference Range Interpretation Comments Basophils (test code = 1.1 See_Comment [Aut omated message] The Basophils) system which ge nerated this result tra nsmitted reference range : <=1.0. The reference r leo was not used to int erpret this result as normal/abnormal . [facility] HospitalVjueolkGXAGDQWVAN9821-40-88 10:22:00 Test Item Value Reference Range Interpretation Comments Monocytes # (test code 0.5 See_Comment [Aut omated message] The = Monocytes #) system which generated this result tra nsmitted reference range : <=0.8. The reference r leo was not used to int erpret this result as normal/abnormal . [facility] [id number] 10:22:00 Test Item Value Reference Range Interpretation Comments BNP (test code = BNP) 526 [facility]2016-12-26 10:22:00 Test Item Value Reference Range Interpretation Comments Magnesium Lvl (test code = Magnesium 2.1 1.8-2.4 Lvl) [facility]2016-12-26 10:22:00 Test Item Value Reference Range Interpretation Comments Glucose Lvl (test code = Glucose Lvl) 117 70-99 [facility]2016-12-26 10:22:00 Test Item Value Reference Range Interpretation Comments BUN (test code = BUN) 41 7-22 [facility]2016-12-26 10:22:00 Test Item Value Reference Range Interpretation Comments Creatinine Lvl (test code = Creatinine 2.00 0.50-1.40 Lvl) [facility]2016-12-26 10:22:00 Test Item Value Reference Range Interpretation Comments Calcium Lvl (test code = Calcium Lvl) 9.0 8.5-10.5 [facility]2016-12-26 10:22:00 Test Item Value Reference Range Interpretation Comments Chloride Lvl (test code = Chloride Lvl) 102 95-109 [facility]2016-12-26 10:22:00 Test Item Value Reference Range Interpretation Comments CO2 (test code = CO2) 33 24-32 [facility]2016-12-26 10:22:00 Test Item Value Reference Range Interpretation Comments Sodium Lvl (test code = Sodium Lvl) 144 135-145 [facility]2016-12-26 10:22:00 Test Item Value Reference Range Interpretation Comments Potassium Lvl (test code = Potassium 4.0 3.5-5.1 Lvl) [facility]2016-12-26 10:22:00 Test Item Value Reference Range Interpretation Comments eGFR (test code = eGFR) 32 [facility]2016-12-26 10:22:00 Test Item Value Reference Range Interpretation Comments AGAP (test code = AGAP) 13.0 10.0-20.0 [facility]2016-12-26 10:22:00 Test Item Value Reference Range Interpretation Comments Phosphorus (test code = Phosphorus) 4.6 2.5-4.5 [facility] HospitalVoytdsnSIUPFZIVNZ4607-86-59 10:22:00 Test Item Value Reference Range Interpretation Comments RBC (test code = RBC) 3.68 4.20-5.40 [facility] HospitalAssqaqwYLAWYYOXED6838-08-49 10:22:00 Test Item Value Reference Range Interpretation Comments Hgb (test code = Hgb) 9.9 12.0-16.0 [facility] HospitalFszwwhoIWBPBMHCZQ7995-56-60 10:22:00 Test Item Value Reference Range Interpretation Comments MCH (test code = MCH) 26.8 pg 27.0-31.0 [facility] HospitalZlmqgfhVSMPQYGCRL5402-87-88 10:22:00 Test Item Value Reference Range Interpretation Comments MCHC (test code = MCHC) 34.2 32.0-36.0 [facility] HospitalMulyjzqTAFWYUMBXM7351-44-76 10:22:00 Test Item Value Reference Range Interpretation Comments MCV (test code = MCV) 78.3 80.0-98.0 [facility] HospitalYqpfnjiVNDUYXXEOH9895-29-43 10:22:00 Test Item Value Reference Range Interpretation Comments Hct (test code = Hct) 28.8 36.0-48.0 [facility] HospitalJwmlpffCZTBEIAIYN3269-74-48 10:22:00 Test Item Value Reference Range Interpretation Comments Platelet (test code = Platelet) 191 133-450 [facility] HospitalLdafbpjLHZDTFZWQN8067-16-83 10:22:00 Test Item Value Reference Range Interpretation Comments MPV (test code = MPV) 9.5 7.4-10.4 [facility] HospitalGzrjmayNNOADIVUOT4168-17-32 10:22:00 Test Item Value Reference Range Interpretation Comments RDW (test code = RDW) 15.3 11.5-14.5 [facility] HospitalInaapfzFJYDEEQXKD7981-85-83 10:22:00 Test Item Value Reference Range Interpretation Comments WBC (test code = WBC) 5.6 3.7-10.4 [facility] HospitalQqjookwRPRBQESACF3489-15-36 10:22:00 Test Item Value Reference Range Interpretation Comments Eosinophils # (test code 0.5 See_Comment [A utomated message] The = Eosinophils #) system [facility] h generated this result tra nsmitted reference range : <=0.5. The reference r leo was not used to int erpret this result as normal/abnormal . [facility] HospitalMfglgmgOIGKZRXBIN3430-91-43 10:22:00 Test Item Value Reference Range Interpretation Comments Microcyte (test code = 1+ *ABN*(06/15/16 Micro[employer]) 4:22 AM) [facility] HospitalMdkfvaaIPEMELYVEP9661-36-29 10:22:00 Test Item Value Reference Range Interpretation Comments Basophils # (test code 0.1 See_Comment [Aut omated message] The = Basophils #) system which generated this result tra nsmitted reference range : <=0.2. The reference r leo was not used to int erpret this result as normal/abnormal . [facility] HospitalGartdipLMXFZKUDCO3250-70-91 10:22:00 Test Item Value Reference Range Interpretation Comments Lymphocytes (test code = Lymphocytes) 33.5 20.0-40.0 [facility] HospitalAfolttiMKJTDJBYRD6366-90-38 10:22:00 Test Item Value Reference Range Interpretation Comments Segs (test code = Segs) 47.6 45.0-75.0 [facility] HospitalBnmopfyDHESEQFRRM7246-04-89 10:22:00 Test Item Value Reference Range Interpretation Comments Monocytes (test code = Monocytes) 8.4 2.0-12.0 [facility] HospitalIqwhgfoHDDMKKILWB9542-30-99 10:22:00 Test Item Value Reference Range Interpretation Comments Eosinophils (test code = 9.4 See_Comment [A utomated message] The Eosinophils) system which ge nerated this result tra nsmitted reference range : <=4.0. The reference r leo was not used to int erpret this result as normal/abnormal . [facility] HospitalFrjegesMDMTFBNEDC4856-23-98 10:22:00 Test Item Value Reference Range Interpretation Comments Segs-Bands # (test code = Segs-Bands #) 2.6 1.5-8.1 [facility] HospitalMgxtialBGSSUKQKGE4189-69-47 10:22:00 Test Item Value Reference Range Interpretation Comments Lymphocytes # (test code = Lymphocytes 1.9 1.0-5.5 #) [facility] HospitalYifctsrIOWQVCTJAW3481-21-05 10:22:00 Test Item Value Reference Range Interpretation Comments Basophils (test code = 1.1 See_Comment [Aut omated message] The Basophils) system which ge nerated this result tra nsmitted reference range : <=1.0. The reference r leo was not used to int erpret this result as normal/abnormal . [facility] TexasBdshvqnOLJWGHZSQD5424-98-19 10:22:00 Test Item Value Reference Range Interpretation Comments Monocytes # (test code 0.5 See_Comment [Aut omated message] The = Monocytes #) system which generated this result tra nsmitted reference range : <=0.8. The reference r leo was not used to int erpret this result as normal/abnormal . [facility]CARDIAC UKNFPKZ1509-07-92 10:22:00 Test Item Value Reference Range Interpretation Comments BNP (test code = BNP) 526 [facility]2016-12-26 10:22:00 Test Item Value Reference Range Interpretation Comments Magnesium Lvl (test code = Magnesium 2.1 1.8-2.4 Lvl) [facility]2016-12-26 10:22:00 Test Item Value Reference Range Interpretation Comments Glucose Lvl (test code = Glucose Lvl) 117 70-99 [facility]2016-12-26 10:22:00 Test Item Value Reference Range Interpretation Comments BUN (test code = BUN) 41 7-22 [facility]2016-12-26 10:22:00 Test Item Value Reference Range Interpretation Comments Creatinine Lvl (test code = Creatinine 2.00 0.50-1.40 Lvl) [facility]2016-12-26 10:22:00 Test Item Value Reference Range Interpretation Comments Calcium Lvl (test code = Calcium Lvl) 9.0 8.5-10.5 [facility]2016-12-26 10:22:00 Test Item Value Reference Range Interpretation Comments Chloride Lvl (test code = Chloride Lvl) 102 95-109 [facility]2016-12-26 10:22:00 Test Item Value Reference Range Interpretation Comments CO2 (test code = CO2) 33 24-32 [facility]2016-12-26 10:22:00 Test Item Value Reference Range Interpretation Comments Sodium Lvl (test code = Sodium Lvl) 144 135-145 [facility]2016-12-26 10:22:00 Test Item Value Reference Range Interpretation Comments Potassium Lvl (test code = Potassium 4.0 3.5-5.1 Lvl) [facility]2016-12-26 10:22:00 Test Item Value Reference Range Interpretation Comments eGFR (test code = eGFR) 32 [facility] [id number] 10:22:00 Test Item Value Reference Range Interpretation Comments AGAP (test code = AGAP) 13.0 10.0-20.0 [facility]2016-12-26 10:22:00 Test Item Value Reference Range Interpretation Comments Phosphorus (test code = Phosphorus) 4.6 2.5-4.5 [facility] HospitalVajicszMPNLYMTJDH5294-13-21 10:22:00 Test Item Value Reference Range Interpretation Comments RBC (test code = RBC) 3.68 4.20-5.40 [facility] HospitalVaeihurZDBQJRNVIJ9665-12-17 10:22:00 Test Item Value Reference Range Interpretation Comments Hgb (test code = Hgb) 9.9 12.0-16.0 [facility] HospitalNovyamhXRPPVYUIKX8712-52-67 10:22:00 Test Item Value Reference Range Interpretation Comments MCH (test code = MCH) 26.8 pg 27.0-31.0 [facility] HospitalAphqxmyMPEWAAMFHS8815-68-37 10:22:00 Test Item Value Reference Range Interpretation Comments MCHC (test code = MCHC) 34.2 32.0-36.0 [facility] HospitalMoqdmyyZEERPNHTDK8214-75-27 10:22:00 Test Item Value Reference Range Interpretation Comments MCV (test code = MCV) 78.3 80.0-98.0 [facility] HospitalNxqpamuHALOKIFAQD5505-11-98 10:22:00 Test Item Value Reference Range Interpretation Comments Hct (test code = Hct) 28.8 36.0-48.0 [facility] HospitalIicpmuzQEZSGRSKGN2546-84-19 10:22:00 Test Item Value Reference Range Interpretation Comments Platelet (test code = Platelet) 191 133-450 [facility] HospitalVbddyhwFIDVWVNAAN3904-90-49 10:22:00 Test Item Value Reference Range Interpretation Comments MPV (test code = MPV) 9.5 7.4-10.4 [facility] HospitalJciitaoZTXFUUMEUF9062-04-06 10:22:00 Test Item Value Reference Range Interpretation Comments RDW (test code = RDW) 15.3 11.5-14.5 [facility] HospitalObosbupVPQWRFKAIM9141-57-62 10:22:00 Test Item Value Reference Range Interpretation Comments WBC (test code = WBC) 5.6 3.7-10.4 [facility] HospitalMfcfycyTHWAZZILSJ3416-30-82 10:22:00 Test Item Value Reference Range Interpretation Comments Eosinophils # (test code 0.5 See_Comment [A utomated message] The = Eosinophils #) system whic h generated this result tra nsmitted reference range : <=0.5. The reference r leo was not used to int erpret this result as normal/abnormal . [facility] HospitalTxayfdgVUOTAMFFBC9122-47-55 10:22:00 Test Item Value Reference Range Interpretation Comments Microcyte (test code = 1+ *ABN*(06/15/16 Microcyte) 4:22 AM) [facility] HospitalWkaqcbrUSAAHKNCON7928-22-47 10:22:00 Test Item Value Reference Range Interpretation Comments Basophils # (test code 0.1 See_Comment [Aut omated message] The = Basophils #) system which generated this result tra nsmitted reference range : <=0.2. The reference r leo was not used to int erpret this result as normal/abnormal . [facility] HospitalNrcqxzrKRVYVXPMIB9929-58-82 10:22:00 Test Item Value Reference Range Interpretation Comments Lymphocytes (test code = Lymphocytes) 33.5 20.0-40.0 [facility] HospitalLvdbfgcFQDPOWCDEQ5624-25-24 10:22:00 Test Item Value Reference Range Interpretation Comments Segs (test code = Segs) 47.6 45.0-75.0 [facility] HospitalApsfwauUFSSVFRALM1921-58-47 10:22:00 Test Item Value Reference Range Interpretation Comments Monocytes (test code = Monocytes) 8.4 2.0-12.0 [facility] HospitalVxbgrfgZCVWEQVCLM9782-73-24 10:22:00 Test Item Value Reference Range Interpretation Comments Eosinophils (test code = 9.4 See_Comment [A utomated message] The Eosinophils) system which ge nerated this result tra nsmitted reference range : <=4.0. The reference r leo was not used to int erpret this result as normal/abnormal . [facility] HospitalRcfsruxLRJJDAETLG6747-14-74 10:22:00 Test Item Value Reference Range Interpretation Comments Segs-Bands # (test code = Segs-Bands #) 2.6 1.5-8.1 [facility] HospitalMokqrbfLWHXBAZEXT6975-57-78 10:22:00 Test Item Value Reference Range Interpretation Comments Lymphocytes # (test code = Lymphocytes 1.9 1.0-5.5 #) [facility]IkigndrCBOKVMIHJC4165-94-16 10:22:00 Test Item Value Reference Range Interpretation Comments Basophils (test code = 1.1 See_Comment [Aut omated message] The Basophils) system which ge nerated this result tra nsmitted reference range : <=1.0. The reference r leo was not used to int erpret this result as normal/abnormal . [facility] HospitalCddfrfcPETBPFYIMI1589-43-79 10:22:00 Test Item Value Reference Range Interpretation Comments Monocytes # (test code 0.5 See_Comment [Aut omated message] The = Monocytes #) system which generated this result tra nsmitted reference range : <=0.8. The reference r leo was not used to int erpret this result as normal/abnormal . [facility]CARDIAC SVZXIJY1915-18-17 10:22:00 Test Item Value Reference Range Interpretation Comments BNP (test code = BNP) [address] [facility] PTSWR2343-23-07 10:22:00 Test Item Value Reference Range Interpretation Comments Magnesium Lvl (test code = Magnesium 2.1 1.8-2.4 Lvl) [facility]2016-12-26 10:22:00 Test Item Value Reference Range Interpretation Comments Glucose Lvl (test code = Glucose Lvl) 117 70-99 [facility]2016-12-26 10:22:00 Test Item Value Reference Range Interpretation Comments BUN (test code = BUN) 41 7-22 [facility]2016-12-26 10:22:00 Test Item Value Reference Range Interpretation Comments Creatinine Lvl (test code = Creatinine 2.00 0.50-1.40 Lvl) [facility]2016-12-26 10:22:00 Test Item Value Reference Range Interpretation Comments Calcium Lvl (test code = Calcium Lvl) 9.0 8.5-10.5 [facility]2016-12-26 10:22:00 Test Item Value Reference Range Interpretation Comments Chloride Lvl (test code = Chloride Lvl) 102 95-109 [facility]2016-12-26 10:22:00 Test Item Value Reference Range Interpretation Comments CO2 (test code = CO2) 33 24-32 [facility] CZDUG9388-55-39 10:22:00 Test Item Value Reference Range Interpretation Comments Sodium Lvl (test code = Sodium Lvl) 144 135-145 [facility]2016-12-26 10:22:00 Test Item Value Reference Range Interpretation Comments Potassium Lvl (test code = Potassium 4.0 3.5-5.1 Lvl) [facility]2016-12-26 10:22:00 Test Item Value Reference Range Interpretation Comments eGFR (test code = eGFR) 32 [facility]2016-12-26 10:22:00 Test Item Value Reference Range Interpretation Comments AGAP (test code = AGAP) 13.0 10.0-20.0 [facility]2016-12-26 10:22:00 Test Item Value Reference Range Interpretation Comments Phosphorus (test code = Phosphorus) 4.6 2.5-4.5 [facility] HospitalWoaoabwZSUQBTUDUP5196-01-14 10:22:00 Test Item Value Reference Range Interpretation Comments RBC (test code = RBC) 3.68 4.20-5.40 [facility] HospitalAsfclxdDGMFOOEYVI6360-89-26 10:22:00 Test Item Value Reference Range Interpretation Comments Hgb (test code = Hgb) 9.9 12.0-16.0 [facility] HospitalBbbvngdNJWNUIUJQU1136-50-73 10:22:00 Test Item Value Reference Range Interpretation Comments MCH (test code = MCH) 26.8 pg 27.0-31.0 [facility] HospitalKsqhcmwOUOQLQSBNJ8246-49-77 10:22:00 Test Item Value Reference Range Interpretation Comments MCHC (test code = MCHC) 34.2 32.0-36.0 [facility] HospitalJbfpjxgUUBDNIPLWB5476-75-88 10:22:00 Test Item Value Reference Range Interpretation Comments MCV (test code = MCV) 78.3 80.0-98.0 [facility] HospitalAapiqahHVRAJNZJGN8910-31-68 10:22:00 Test Item Value Reference Range Interpretation Comments Hct (test code = Hct) 28.8 36.0-48.0 [facility] HospitalJhbonsyPUFOELZFVQ9358-15-43 10:22:00 Test Item Value Reference Range Interpretation Comments Platelet (test code = Platelet) 191 133-450 [facility] HospitalHwnlbyrCSHYXZZPQR6319-25-30 10:22:00 Test Item Value Reference Range Interpretation Comments MPV (test code = MPV) 9.5 7.4-10.4 [facility] HospitalExajfabRAXVNJBMWT3735-82-87 10:22:00 Test Item Value Reference Range Interpretation Comments RDW (test code = RDW) 15.3 11.5-14.5 [facility] HospitalNwagbmjHIUWVTIREC8722-80-44 10:22:00 Test Item Value Reference Range Interpretation Comments WBC (test code = WBC) 5.6 3.7-10.4 [facility] HospitalRiiugheDBCHXBGVXY6994-85-08 10:22:00 Test Item Value Reference Range Interpretation Comments Eosinophils # (test code 0.5 See_Comment [A utomated message] The = Eosinophils #) system whic h generated this result tra nsmitted reference range : <=0.5. The reference r leo was not used to int erpret this result as normal/abnormal . [facility] HospitalGkbzcdfDTIDQOUZLA7048-53-77 10:22:00 Test Item Value Reference Range Interpretation Comments Microcyte (test code = 1+ *ABN*(06/15/16 Microcyte) 4:22 AM) [facility] HospitalRhdnuphGDZPBFZRYG4983-53-31 10:22:00 Test Item Value Reference Range Interpretation Comments Basophils # (test code 0.1 See_Comment [Aut omated message] The = Basophils #) system which generated this result tra nsmitted reference range : <=0.2. The reference r leo was not used to int erpret this result as normal/abnormal . [facility] HospitalWxatmmgIKNLSAIUXB4673-01-30 10:22:00 Test Item Value Reference Range Interpretation Comments Lymphocytes (test code = Lymphocytes) 33.5 20.0-40.0 [facility] HospitalQxfcmcoFSVPZOCJUM5147-56-71 10:22:00 Test Item Value Reference Range Interpretation Comments Segs (test code = Segs) 47.6 45.0-75.0 [facility] HospitalYmpwvyuJIBAXCMYIS8345-91-77 10:22:00 Test Item Value Reference Range Interpretation Comments Monocytes (test code = Monocytes) 8.4 2.0-12.0 [facility] HospitalOevnbvhQHPGRDQRWK2456-23-48 10:22:00 Test Item Value Reference Range Interpretation Comments Eosinophils (test code = 9.4 See_Comment [A utomated message] The Eosinophils) system which ge nerated this result tra nsmitted reference range : <=4.0. The reference r leo was not used to int erpret this result as normal/abnormal . [facility] HospitalCujzxtlUCCBNIMTNX4816-23-65 10:22:00 Test Item Value Reference Range Interpretation Comments Segs-Bands # (test code = Segs-Bands #) 2.6 1.5-8.1 [facility] HospitalGcmtxgzWGOVDCPKJZ6201-56-09 10:22:00 Test Item Value Reference Range Interpretation Comments Lymphocytes # (test code = Lymphocytes 1.9 1.0-5.5 #) [facility] HospitalCwdtodzXNZDRISOJE0400-89-20 10:22:00 Test Item Value Reference Range Interpretation Comments Basophils (test code = 1.1 See_Comment [Aut omated message] The Basophils) system which ge nerated this result tra nsmitted reference range : <=1.0. The reference r leo was not used to int erpret this result as normal/abnormal . [facility] HospitalKtjboscYRAATQNZBM4118-40-04 10:22:00 Test Item Value Reference Range Interpretation Comments Monocytes # (test code 0.5 See_Comment [Aut omated message] The = Monocytes #) system which generated this result tra nsmitted reference range : <=0.8. The reference r leo was not used to int erpret this result as normal/abnormal . [facility]2016-12-25 11:03:00 Test Item Value Reference Range Interpretation Comments Phosphorus (test code = Phosphorus) 4.8 2.5-4.5 [facility]2016-12-25 11:03:00 Test Item Value Reference Range Interpretation Comments Magnesium Lvl (test code = Magnesium 2.0 1.8-2.4 Lvl) [facility]2016-12-25 11:03:00 Test Item Value Reference Range Interpretation Comments eGFR (test code = eGFR) 32 [facility]2016-12-25 11:03:00 Test Item Value Reference Range Interpretation Comments Chloride Lvl (test code = Chloride Lvl) 101 95-109 [facility]2016-12-25 11:03:00 Test Item Value Reference Range Interpretation Comments Potassium Lvl (test code = Potassium 4.4 3.5-5.1 Lvl) [facility]2016-12-25 11:03:00 Test Item Value Reference Range Interpretation Comments BUN (test code = BUN) 37 7-22 [facility]2016-12-25 11:03:00 Test Item Value Reference Range Interpretation Comments Glucose Lvl (test code = Glucose Lvl) 119 70-99 [facility]2016-12-25 11:03:00 Test Item Value Reference Range Interpretation Comments Creatinine Lvl (test code = Creatinine 2.00 0.50-1.40 Lvl) [facility]2016-12-25 11:03:00 Test Item Value Reference Range Interpretation Comments Sodium Lvl (test code = Sodium Lvl) 142 135-145 [facility]2016-12-25 11:03:00 Test Item Value Reference Range Interpretation Comments Calcium Lvl (test code = Calcium Lvl) 8.7 8.5-10.5 [facility]2016-12-25 11:03:00 Test Item Value Reference Range Interpretation Comments CO2 (test code = CO2) 32 24-32 [facility]2016-12-25 11:03:00 Test Item Value Reference Range Interpretation Comments AGAP (test code = AGAP) 13.4 10.0-20.0 [facility] HospitalJanywexAHMIKCHJIJ8172-08-81 11:03:00 Test Item Value Reference Range Interpretation Comments Eosinophils (test code = 10.3 See_Comment [A utomated message] The Eosinophils) system which ge nerated this result tra nsmitted reference range : <=4.0. The reference r leo was not used to int erpret this result as normal/abnormal . [facility] HospitalHnzkmagFKOKHWKNMY4054-13-58 11:03:00 Test Item Value Reference Range Interpretation Comments Basophils # (test code 0.1 See_Comment [Aut omated message] The = Basophils #) system which generated this result tra nsmitted reference range : <=0.2. The reference r leo was not used to int erpret this result as normal/abnormal . [facility] HospitalObowvhwUVNVDAADQD4607-97-68 11:03:00 Test Item Value Reference Range Interpretation Comments Eosinophils # (test code 0.5 See_Comment [A utomated message] The = Eosinophils #) system whic h generated this result tra nsmitted reference range : <=0.5. The reference r leo was not used to int erpret this result as normal/abnormal . [facility] HospitalSwuxnyyJTLJHWLLLN8540-41-61 11:03:00 Test Item Value Reference Range Interpretation Comments Monocytes # (test code 0.5 See_Comment [Aut omated message] The = Monocytes #) system which generated this result tra nsmitted reference range : <=0.8. The reference r leo was not used to int erpret this result as normal/abnormal . [facility] HospitalXbiztldLXKLBSJVLO3822-32-54 11:03:00 Test Item Value Reference Range Interpretation Comments Segs-Bands # (test code = Segs-Bands #) 2.1 1.5-8.1 [facility] HospitalUrvoptmHNVQJZOZZH4167-87-75 11:03:00 Test Item Value Reference Range Interpretation Comments Basophils (test code = 1.2 See_Comment [Aut omated message] The Basophils) system which ge nerated this result tra nsmitted reference range : <=1.0. The reference r leo was not used to int erpret this result as normal/abnormal . [facility] HospitalJhvnohtTWCMQKLDVT6261-26-66 11:03:00 Test Item Value Reference Range Interpretation Comments Lymphocytes # (test code = Lymphocytes 1.9 1.0-5.5 #) [facility] HospitalAcmxkhxZIWINYNRAU3126-20-53 11:03:00 Test Item Value Reference Range Interpretation Comments Segs (test code = Segs) 42.5 45.0-75.0 [facility] HospitalUcvliacYSIKCOPNAX5532-57-59 11:03:00 Test Item Value Reference Range Interpretation Comments Lymphocytes (test code = Lymphocytes) 37.0 20.0-40.0 [facility] HospitalMnmwezxAMIXOCRQFT9488-63-81 11:03:00 Test Item Value Reference Range Interpretation Comments Monocytes (test code = Monocytes) 9.0 2.0-12.0 [facility] HospitalUkpzpdwVRZQBXOKWY3070-64-84 11:03:00 Test Item Value Reference Range Interpretation Comments MPV (test code = MPV) 9.8 7.4-10.4 [facility] HospitalIelfeodRACZIFRQEO3128-27-50 11:03:00 Test Item Value Reference Range Interpretation Comments WBC (test code = WBC) 5.0 3.7-10.4 [facility] HospitalUwelptpOJJRITDHKW2013-44-11 11:03:00 Test Item Value Reference Range Interpretation Comments RBC (test code = RBC) 3.57 4.20-5.40 [facility] HospitalDachqcyTLBFIPLMSL3735-57-75 11:03:00 Test Item Value Reference Range Interpretation Comments Hgb (test code = Hgb) 9.4 12.0-16.0 [facility] HospitalJvvzjsdICNEYYBSZZ8294-48-57 11:03:00 Test Item Value Reference Range Interpretation Comments Hct (test code = Hct) 28.5 36.0-48.0 [facility] HospitalCrpvxrlZTHIMCGRVN2927-84-15 11:03:00 Test Item Value Reference Range Interpretation Comments Platelet (test code = Platelet) 183 133-450 [facility] HospitalTudjkwpOWZFDKGMRK7976-12-11 11:03:00 Test Item Value Reference Range Interpretation Comments MCV (test code = MCV) 79.9 80.0-98.0 [facility] HospitalKuvhrefCMPWQQAMOH6557-78-81 11:03:00 Test Item Value Reference Range Interpretation Comments MCH (test code = MCH) 26.3 pg 27.0-31.0 [facility] HospitalDvjwkkmJFXQIHTCGK9379-30-93 11:03:00 Test Item Value Reference Range Interpretation Comments MCHC (test code = MCHC) 33.0 32.0-36.0 [facility] HospitalBvphzheBHIZJMKMOZ2463-88-55 11:03:00 Test Item Value Reference Range Interpretation Comments RDW (test code = RDW) 15.9 11.5-14.5 [facility]2016-12-25 11:03:00 Test Item Value Reference Range Interpretation Comments Phosphorus (test code = Phosphorus) 4.8 2.5-4.5 [facility]2016-12-25 11:03:00 Test Item Value Reference Range Interpretation Comments Magnesium Lvl (test code = Magnesium 2.0 1.8-2.4 Lvl) [facility]2016-12-25 11:03:00 Test Item Value Reference Range Interpretation Comments eGFR (test code = eGFR) 32 [facility]2016-12-25 11:03:00 Test Item Value Reference Range Interpretation Comments Chloride Lvl (test code = Chloride Lvl) 101 95-109 [facility]2016-12-25 11:03:00 Test Item Value Reference Range Interpretation Comments Potassium Lvl (test code = Potassium 4.4 3.5-5.1 Lvl) [facility]2016-12-25 11:03:00 Test Item Value Reference Range Interpretation Comments BUN (test code = BUN) 37 7-22 [facility]2016-12-25 11:03:00 Test Item Value Reference Range Interpretation Comments Glucose Lvl (test code = Glucose Lvl) 119 70-99 [facility]2016-12-25 11:03:00 Test Item Value Reference Range Interpretation Comments Creatinine Lvl (test code = Creatinine 2.00 0.50-1.40 Lvl) [facility]2016-12-25 11:03:00 Test Item Value Reference Range Interpretation Comments Sodium Lvl (test code = Sodium Lvl) 142 135-145 [facility]2016-12-25 11:03:00 Test Item Value Reference Range Interpretation Comments Calcium Lvl (test code = Calcium Lvl) 8.7 8.5-10.5 [facility]2016-12-25 11:03:00 Test Item Value Reference Range Interpretation Comments CO2 (test code = CO2) 32 24-32 [facility]2016-12-25 11:03:00 Test Item Value Reference Range Interpretation Comments AGAP (test code = AGAP) 13.4 10.0-20.0 [facility] HospitalLbuycviETIGTUEGSX9644-91-63 11:03:00 Test Item Value Reference Range Interpretation Comments Eosinophils (test code = 10.3 See_Comment [A utomated message] The Eosinophils) system which ge nerated this result tra nsmitted reference range : <=4.0. The reference r leo was not used to int erpret this result as normal/abnormal . [facility] HospitalAnlmewiTYBNQNNUHF3428-51-14 11:03:00 Test Item Value Reference Range Interpretation Comments Basophils # (test code 0.1 See_Comment [Aut omated message] The = Basophils #) system which generated this result tra nsmitted reference range : <=0.2. The reference r leo was not used to int erpret this result as normal/abnormal . [facility] HospitalFjhininFYQVIVICYA9448-66-65 11:03:00 Test Item Value Reference Range Interpretation Comments Eosinophils # (test code 0.5 See_Comment [A utomated message] The = Eosinophils #) system whic h generated this result tra nsmitted reference range : <=0.5. The reference r leo was not used to int erpret this result as normal/abnormal . [facility] HospitalIsyjqcpVQWTUFHCVR3009-25-92 11:03:00 Test Item Value Reference Range Interpretation Comments Monocytes # (test code 0.5 See_Comment [Aut omated message] The = Monocytes #) system which generated this result tra nsmitted reference range : <=0.8. The reference r leo was not used to int erpret this result as normal/abnormal . [facility] HospitalBrpboldBSKCTQWMYF8201-55-95 11:03:00 Test Item Value Reference Range Interpretation Comments Segs-Bands # (test code = Segs-Bands #) 2.1 1.5-8.1 [facility] HospitalPnqmcegFBVCGHFPET9970-93-20 11:03:00 Test Item Value Reference Range Interpretation Comments Basophils (test code = 1.2 See_Comment [Aut omated message] The Basophils) system which ge nerated this result tra nsmitted reference range : <=1.0. The reference r leo was not used to int erpret this result as normal/abnormal . [facility] HospitalGfchafgIQRVFWQKNS4981-44-57 11:03:00 Test Item Value Reference Range Interpretation Comments Lymphocytes # (test code = Lymphocytes 1.9 1.0-5.5 #) [facility] HospitalJitcdcmCSOAIHPQHV6807-56-38 11:03:00 Test Item Value Reference Range Interpretation Comments Segs (test code = Segs) 42.5 45.0-75.0 [facility] HospitalRwaxsinDICJCLTCST8406-15-35 11:03:00 Test Item Value Reference Range Interpretation Comments Lymphocytes (test code = Lymphocytes) 37.0 20.0-40.0 [facility] HospitalMikjaocEPXGPVAPBC9383-92-65 11:03:00 Test Item Value Reference Range Interpretation Comments Monocytes (test code = Monocytes) 9.0 2.0-12.0 [facility] HospitalXigceshIYJSPJBVKE6975-77-17 11:03:00 Test Item Value Reference Range Interpretation Comments MPV (test code = MPV) 9.8 7.4-10.4 [facility] HospitalCteraoiEONDYZQLLL7317-80-19 11:03:00 Test Item Value Reference Range Interpretation Comments WBC (test code = WBC) 5.0 3.7-10.4 [facility] HospitalXonlpysNPOHATLAYX4749-37-28 11:03:00 Test Item Value Reference Range Interpretation Comments RBC (test code = RBC) 3.57 4.20-5.40 [facility] HospitalVdsoeytYZBIHONUSV0035-40-20 11:03:00 Test Item Value Reference Range Interpretation Comments Hgb (test code = Hgb) 9.4 12.0-16.0 [facility] HospitalUaghpirJEFGQUWLKH6497-61-91 11:03:00 Test Item Value Reference Range Interpretation Comments Hct (test code = Hct) 28.5 36.0-48.0 [facility] HospitalBbdnxrbNLWNGQDPTQ3783-53-51 11:03:00 Test Item Value Reference Range Interpretation Comments Platelet (test code = Platelet) 183 133-450 [facility] HospitalGuazrqhIBQHZBMUVZ8249-90-88 11:03:00 Test Item Value Reference Range Interpretation Comments MCV (test code = MCV) 79.9 80.0-98.0 [facility] HospitalMsujdcfVBMFRPJKZL0725-09-72 11:03:00 Test Item Value Reference Range Interpretation Comments MCH (test code = MCH) 26.3 pg 27.0-31.0 [facility] HospitalPocaossRTIUEPHEEN6333-15-21 11:03:00 Test Item Value Reference Range Interpretation Comments MCHC (test code = MCHC) 33.0 32.0-36.0 [facility] HospitalKvaszixQDCLWTZBCU6165-04-19 11:03:00 Test Item Value Reference Range Interpretation Comments RDW (test code = RDW) 15.9 11.5-14.5 [facility]2016-12-25 11:03:00 Test Item Value Reference Range Interpretation Comments Phosphorus (test code = Phosphorus) 4.8 2.5-4.5 [facility]2016-12-25 11:03:00 Test Item Value Reference Range Interpretation Comments Magnesium Lvl (test code = Magnesium 2.0 1.8-2.4 Lvl) [facility]2016-12-25 11:03:00 Test Item Value Reference Range Interpretation Comments eGFR (test code = eGFR) 32 [facility]2016-12-25 11:03:00 Test Item Value Reference Range Interpretation Comments Chloride Lvl (test code = Chloride Lvl) 101 95-109 [facility]2016-12-25 11:03:00 Test Item Value Reference Range Interpretation Comments Potassium Lvl (test code = Potassium 4.4 3.5-5.1 Lvl) [facility]2016-12-25 11:03:00 Test Item Value Reference Range Interpretation Comments BUN (test code = BUN) 37 7-22 [facility]2016-12-25 11:03:00 Test Item Value Reference Range Interpretation Comments Glucose Lvl (test code = Glucose Lvl) 119 70-99 [facility]2016-12-25 11:03:00 Test Item Value Reference Range Interpretation Comments Creatinine Lvl (test code = Creatinine 2.00 0.50-1.40 Lvl) [facility]2016-12-25 11:03:00 Test Item Value Reference Range Interpretation Comments Sodium Lvl (test code = Sodium Lvl) 142 135-145 [facility]2016-12-25 11:03:00 Test Item Value Reference Range Interpretation Comments Calcium Lvl (test code = Calcium Lvl) 8.7 8.5-10.5 [facility]2016-12-25 11:03:00 Test Item Value Reference Range Interpretation Comments CO2 (test code = CO2) 32 24-32 [facility]2016-12-25 11:03:00 Test Item Value Reference Range Interpretation Comments AGAP (test code = AGAP) 13.4 10.0-20.0 [facility] HospitalLbsuwhuZOTBJPAJPK8723-55-16 11:03:00 Test Item Value Reference Range Interpretation Comments Eosinophils (test code = 10.3 See_Comment [A utomated message] The Eosinophils) system which ge nerated this result tra nsmitted reference range : <=4.0. The reference r leo was not used to int erpret this result as normal/abnormal . [facility] HospitalNndafnsOKKGIDSEIU1571-59-41 11:03:00 Test Item Value Reference Range Interpretation Comments Basophils # (test code 0.1 See_Comment [Aut omated message] The = Basophils #) system which generated this result tra nsmitted reference range : <=0.2. The reference r leo was not used to int erpret this result as normal/abnormal . [facility] HospitalIorztpuDEJUSLANQV1612-35-65 11:03:00 Test Item Value Reference Range Interpretation Comments Eosinophils # (test code 0.5 See_Comment [A utomated message] The = Eosinophils #) system whic h generated this result tra nsmitted reference range : <=0.5. The reference r leo was not used to int erpret this result as normal/abnormal . [facility] HospitalGknbhotGGMIZDIYGN8670-90-51 11:03:00 Test Item Value Reference Range Interpretation Comments Monocytes # (test code 0.5 See_Comment [Aut omated message] The = Monocytes #) system which generated this result tra nsmitted reference range : <=0.8. The reference r leo was not used to int erpret this result as normal/abnormal . [facility] HospitalJraehhuYZWIHCCSDJ0473-94-50 11:03:00 Test Item Value Reference Range Interpretation Comments Segs-Bands # (test code = Segs-Bands #) 2.1 1.5-8.1 [facility] HospitalElekpsxYIFUQTHXOU2805-90-90 11:03:00 Test Item Value Reference Range Interpretation Comments Basophils (test code = 1.2 See_Comment [Aut omated message] The Basophils) system which ge nerated this result tra nsmitted reference range : <=1.0. The reference r leo was not used to int erpret this result as normal/abnormal . [facility] HospitalIvfntouSBCYVXAOPG1975-90-72 11:03:00 Test Item Value Reference Range Interpretation Comments Lymphocytes # (test code = Lymphocytes 1.9 1.0-5.5 #) [facility] HospitalWlxlpxgDGHKLWLMBS3037-57-81 11:03:00 Test Item Value Reference Range Interpretation Comments Segs (test code = Segs) 42.5 45.0-75.0 [facility] HospitalZgyzddrXESNHFQXSA4067-09-29 11:03:00 Test Item Value Reference Range Interpretation Comments Lymphocytes (test code = Lymphocytes) 37.0 20.0-40.0 [facility] HospitalXkyrbzcBSYREFUTNG2575-48-45 11:03:00 Test Item Value Reference Range Interpretation Comments Monocytes (test code = Monocytes) 9.0 2.0-12.0 [facility] HospitalUzaenntONLMXNWMHW5280-14-32 11:03:00 Test Item Value Reference Range Interpretation Comments MPV (test code = MPV) 9.8 7.4-10.4 [facility] HospitalZaahcjsJBDTVQIIDY2502-99-58 11:03:00 Test Item Value Reference Range Interpretation Comments WBC (test code = WBC) 5.0 3.7-10.4 [facility] HospitalOjvbrvsLHNQZGFRZJ7749-74-43 11:03:00 Test Item Value Reference Range Interpretation Comments RBC (test code = RBC) 3.57 4.20-5.40 [facility] HospitalErrskfxEJGLDETSIQ7092-65-91 11:03:00 Test Item Value Reference Range Interpretation Comments Hgb (test code = Hgb) 9.4 12.0-16.0 [place] 636896-12-25 11:03:00 Test Item Value Reference Range Interpretation Comments Hct (test code = Hct) 28.5 36.0-48.0 [facility] HospitalKojfxrrAYRUXNVTFW7131-23-80 11:03:00 Test Item Value Reference Range Interpretation Comments Platelet (test code = Platelet) 183 133-450 [facility] HospitalJhhugulOJTRYAPEEJ4105-95-03 11:03:00 Test Item Value Reference Range Interpretation Comments MCV (test code = MCV) 79.9 80.0-98.0 [facility] HospitalKrziyxvXYIVNIMWHT6183-39-45 11:03:00 Test Item Value Reference Range Interpretation Comments MCH (test code = MCH) 26.3 pg 27.0-31.0 [facility] HospitalVfcxdusKMYPDTIBXT2016-36-37 11:03:00 Test Item Value Reference Range Interpretation Comments MCHC (test code = MCHC) 33.0 32.0-36.0 [facility] HospitalDknmyffRRXFGYGYBG6998-83-85 11:03:00 Test Item Value Reference Range Interpretation Comments RDW (test code = RDW) 15.9 11.5-14.5 [facility]2016-12-25 11:03:00 Test Item Value Reference Range Interpretation Comments Phosphorus (test code = Phosphorus) 4.8 2.5-4.5 [facility]2016-12-25 11:03:00 Test Item Value Reference Range Interpretation Comments Magnesium Lvl (test code = Magnesium 2.0 1.8-2.4 Lvl) [facility]2016-12-25 11:03:00 Test Item Value Reference Range Interpretation Comments eGFR (test code = eGFR) 32 [facility]2016-12-25 11:03:00 Test Item Value Reference Range Interpretation Comments Chloride Lvl (test code = Chloride Lvl) 101 95-109 [facility]2016-12-25 11:03:00 Test Item Value Reference Range Interpretation Comments Potassium Lvl (test code = Potassium 4.4 3.5-5.1 Lvl) [facility]2016-12-25 11:03:00 Test Item Value Reference Range Interpretation Comments BUN (test code = BUN) 37 7-22 [facility]2016-12-25 11:03:00 Test Item Value Reference Range Interpretation Comments Glucose Lvl (test code = Glucose Lvl) 119 70-99 [facility]2016-12-25 11:03:00 Test Item Value Reference Range Interpretation Comments Creatinine Lvl (test code = Creatinine 2.00 0.50-1.40 Lvl) [facility]2016-12-25 11:03:00 Test Item Value Reference Range Interpretation Comments Sodium Lvl (test code = Sodium Lvl) 142 135-145 [facility]2016-12-25 11:03:00 Test Item Value Reference Range Interpretation Comments Calcium Lvl (test code = Calcium Lvl) 8.7 8.5-10.5 [facility]2016-12-25 11:03:00 Test Item Value Reference Range Interpretation Comments CO2 (test code = CO2) 32 24-32 [facility]2016-12-25 11:03:00 Test Item Value Reference Range Interpretation Comments AGAP (test code = AGAP) 13.4 10.0-20.0 [facility] HospitalQkxyefnTDGGHLAZOI0270-19-20 11:03:00 Test Item Value Reference Range Interpretation Comments Eosinophils (test code = 10.3 See_Comment [A utomated message] The Eosinophils) system which ge nerated this result tra nsmitted reference range : <=4.0. The reference r leo was not used to int erpret this result as normal/abnormal . [facility] HospitalVuqdljeYNTMXLGDWF1648-32-29 11:03:00 Test Item Value Reference Range Interpretation Comments Basophils # (test code 0.1 See_Comment [Aut omated message] The = Basophils #) system which generated this result tra nsmitted reference range : <=0.2. The reference r leo was not used to int erpret this result as normal/abnormal . [facility] HospitalDnljtxgDOQTMJREJM3499-99-87 11:03:00 Test Item Value Reference Range Interpretation Comments Eosinophils # (test code 0.5 See_Comment [A utomated message] The = Eosinophils #) system whic h generated this result tra nsmitted reference range : <=0.5. The reference r leo was not used to int erpret this result as normal/abnormal . [facility] HospitalDxrbanaTCLMQLKXPU8118-79-73 11:03:00 Test Item Value Reference Range Interpretation Comments Monocytes # (test code 0.5 See_Comment [Aut omated message] The = Monocytes #) system which generated this result tra nsmitted reference range : <=0.8. The reference r leo was not used to int erpret this result as normal/abnormal . [facility] HospitalPkjmqltKKNVOOCAVZ0731-75-75 11:03:00 Test Item Value Reference Range Interpretation Comments Segs-Bands # (test code = Segs-Bands #) 2.1 1.5-8.1 [facility] HospitalUujkqeuPXMEMIRTQU1301-57-16 11:03:00 Test Item Value Reference Range Interpretation Comments Basophils (test code = 1.2 See_Comment [Aut omated message] The Basophils) system which ge nerated this result tra nsmitted reference range : <=1.0. The reference r leo was not used to int erpret this result as normal/abnormal . [facility] HospitalXtasrjjLYAFRCQPNW0815-24-84 11:03:00 Test Item Value Reference Range Interpretation Comments Lymphocytes # (test code = Lymphocytes 1.9 1.0-5.5 #) [facility] HospitalOejhypfKZOPVZEJVW1237-62-16 11:03:00 Test Item Value Reference Range Interpretation Comments Segs (test code = Segs) 42.5 45.0-75.0 [facility] HospitalHkxjsjnPGCCHLTHKQ4495-12-61 11:03:00 Test Item Value Reference Range Interpretation Comments Lymphocytes (test code = Lymphocytes) 37.0 20.0-40.0 [facility] HospitalJqahrtwCDKOFSPHGX4827-81-75 11:03:00 Test Item Value Reference Range Interpretation Comments Monocytes (test code = Monocytes) 9.0 2.0-12.0 [facility] HospitalWqoeqhuOJLANQGDRB9885-93-46 11:03:00 Test Item Value Reference Range Interpretation Comments MPV (test code = MPV) 9.8 7.4-10.4 [facility] HospitalOtiaprnYWUDYBIISU7001-94-39 11:03:00 Test Item Value Reference Range Interpretation Comments WBC (test code = WBC) 5.0 3.7-10.4 [facility] HospitalXcewyckKIZBXXYQWU4896-92-99 11:03:00 Test Item Value Reference Range Interpretation Comments RBC (test code = RBC) 3.57 4.20-5.40 [facility] HospitalUghsqlwBLKKOHWDWW2914-89-57 11:03:00 Test Item Value Reference Range Interpretation Comments Hgb (test code = Hgb) 9.4 12.0-16.0 [facility] HospitalWaaxfeyUIKZWUCJQD0050-95-38 11:03:00 Test Item Value Reference Range Interpretation Comments Hct (test code = Hct) 28.5 36.0-48.0 [facility]RrgivjcXFUCWXKIHZ5210-33-28 11:03:00 Test Item Value Reference Range Interpretation Comments Platelet (test code = Platelet) 183 133-450 [facility] HospitalBwevwfxCCXLEAWWAL8234-98-37 11:03:00 Test Item Value Reference Range Interpretation Comments MCV (test code = MCV) 79.9 80.0-98.0 [facility] HospitalZbyeomxHNJCSZGFFK0458-16-57 11:03:00 Test Item Value Reference Range Interpretation Comments MCH (test code = MCH) 26.3 pg 27.0-31.0 [facility] HospitalGpecikvZTXADKLKKX3012-99-90 11:03:00 Test Item Value Reference Range Interpretation Comments MCHC (test code = MCHC) 33.0 32.0-36.0 [facility] HospitalSepiastDOBFUUADBT6054-82-58 11:03:00 Test Item Value Reference Range Interpretation Comments RDW (test code = RDW) 15.9 11.5-14.5 [facility]2016-12-24 10:26:00 Test Item Value Reference Range Interpretation Comments U Prot/Creat (test code = U Prot/Creat) 6.9 [facility]2016-12-24 10:26:00 Test Item Value Reference Range Interpretation Comments U Creatinine (test code = U Creatinine) 19.30 [facility]2016-12-24 10:26:00 Test Item Value Reference Range Interpretation Comments U Protein (test code = U Protein) 133.1 [facility]2016-12-24 10:26:00 Test Item Value Reference Range Interpretation Comments U Prot/Creat (test code = U Prot/Creat) 6.9 [facility]2016-12-24 10:26:00 Test Item Value Reference Range Interpretation Comments U Creatinine (test code = U Creatinine) 19.30 [facility]2016-12-24 10:26:00 Test Item Value Reference Range Interpretation Comments U Protein (test code = U Protein) 133.1 [facility]2016-12-24 10:26:00 Test Item Value Reference Range Interpretation Comments U Prot/Creat (test code = U Prot/Creat) 6.9 [facility]2016-12-24 10:26:00 Test Item Value Reference Range Interpretation Comments U Creatinine (test code = U Creatinine) 19.30 [facility]2016-12-24 10:26:00 Test Item Value Reference Range Interpretation Comments U Protein (test code = U Protein) 133.1 [facility]2016-12-24 10:26:00 Test Item Value Reference Range Interpretation Comments U Prot/Creat (test code = U Prot/Creat) 6.9 [facility]2016-12-24 10:26:00 Test Item Value Reference Range Interpretation Comments U Creatinine (test code = U Creatinine) 19.30 [facility]2016-12-24 10:26:00 Test Item Value Reference Range Interpretation Comments U Protein (test code = U Protein) 133.1 [facility] HospitalOhjoywxEFNQVTEAVT2082-68-77 09:20:00 Test Item Value Reference Range Interpretation Comments MPV (test code = MPV) 9.7 7.4-10.4 [facility] HospitalLrcyjxiEIIRQNSCVZ1971-59-09 09:20:00 Test Item Value Reference Range Interpretation Comments Platelet (test code = Platelet) 184 133-450 [facility] HospitalJvynozkMJUQSTOPSY8765-01-35 09:20:00 Test Item Value Reference Range Interpretation Comments RDW (test code = RDW) 15.9 11.5-14.5 [facility] HospitalLizwappNTQKCASFUF5299-37-41 09:20:00 Test Item Value Reference Range Interpretation Comments MCV (test code = MCV) 79.3 80.0-98.0 [facility] HospitalKjrustyXMAHXKOBJF5962-40-70 09:20:00 Test Item Value Reference Range Interpretation Comments MCHC (test code = MCHC) 33.0 32.0-36.0 [facility] HospitalYelbsxvPOIRYXCBMB6714-65-55 09:20:00 Test Item Value Reference Range Interpretation Comments MCH (test code = MCH) 26.2 pg 27.0-31.0 [facility] HospitalUzpbqyaPDOXLECIIJ9380-88-32 09:20:00 Test Item Value Reference Range Interpretation Comments Hct (test code = Hct) 29.4 36.0-48.0 [facility] HospitalAoropeuSVLQIQKPER8598-82-61 09:20:00 Test Item Value Reference Range Interpretation Comments Hgb (test code = Hgb) 9.7 12.0-16.0 [facility] HospitalNpsacwdGLWATAFYGI2951-97-70 09:20:00 Test Item Value Reference Range Interpretation Comments RBC (test code = RBC) 3.70 4.20-5.40 [facility] HospitalFvztjtwLNNQUZAUBS8474-20-77 09:20:00 Test Item Value Reference Range Interpretation Comments WBC (test code = WBC) 5.7 3.7-10.4 [facility] HospitalJfyncubNOETFFYJNZ8365-75-50 09:20:00 Test Item Value Reference Range Interpretation Comments Basophils # (test code 0.1 See_Comment [Aut omated message] The = Basophils #) system which generated this result tra nsmitted reference range : <=0.2. The reference r leo was not used to int erpret this result as normal/abnormal . [facility] HospitalFfpdnanENUJFFDUPP5538-79-87 09:20:00 Test Item Value Reference Range Interpretation Comments Lymphocytes # (test code = Lymphocytes 2.2 1.0-5.5 #) [facility] HospitalMsxvhyhHPNVWUEFLW3854-44-84 09:20:00 Test Item Value Reference Range Interpretation Comments Eosinophils # (test code 0.5 See_Comment [A utomated message] The = Eosinophils #) system whic h generated this result tra nsmitted reference range : <=0.5. The reference r leo was not used to int erpret this result as normal/abnormal . [facility] HospitalStnkemnHVLKMFUCUX2671-50-21 09:20:00 Test Item Value Reference Range Interpretation Comments Monocytes # (test code 0.5 See_Comment [Aut omated message] The = Monocytes #) system which generated this result tra nsmitted reference range : <=0.8. The reference r leo was not used to int erpret this result as normal/abnormal . [facility] HospitalAjsrdgoYRKTSFHYYO2884-80-07 09:20:00 Test Item Value Reference Range Interpretation Comments Basophils (test code = 1.1 See_Comment [Aut omated message] The Basophils) system which ge nerated this result tra nsmitted reference range : <=1.0. The reference r leo was not used to int erpret this result as normal/abnormal . [facility] HospitalKjvbaizIDDSPIAYHH4630-14-88 09:20:00 Test Item Value Reference Range Interpretation Comments Segs-Bands # (test code = Segs-Bands #) 2.3 1.5-8.1 [place] [id number] 09:20:00 Test Item Value Reference Range Interpretation Comments Eosinophils (test code = 9.5 See_Comment [A utomated message] The Eosinophils) system which ge nerated this result tra nsmitted reference range : <=4.0. The reference r leo was not used to int erpret this result as normal/abnormal . [facility] HospitalCigectdJRXQYACFLG9443-50-21 09:20:00 Test Item Value Reference Range Interpretation Comments Monocytes (test code = Monocytes) 9.0 2.0-12.0 [facility] HospitalKwqamdrAUYCOXOJEE8276-99-59 09:20:00 Test Item Value Reference Range Interpretation Comments Lymphocytes (test code = Lymphocytes) 38.9 20.0-40.0 [facility] HospitalQtdflghFPAKDEXSBY0105-17-28 09:20:00 Test Item Value Reference Range Interpretation Comments Segs (test code = Segs) 41.5 45.0-75.0 [facility] HospitalNgfzroaRSHMBBRFAR7238-79-33 09:20:00 Test Item Value Reference Range Interpretation Comments MPV (test code = MPV) 9.7 7.4-10.4 [place] 636896-12-24 09:20:00 Test Item Value Reference Range Interpretation Comments Platelet (test code = Platelet) 184 133-450 [facility] HospitalSdcsiuzVRLNAWACVF4233-92-70 09:20:00 Test Item Value Reference Range Interpretation Comments RDW (test code = RDW) 15.9 11.5-14.5 [facility] HospitalKudlzjuLPUUEWMGFO2619-60-50 09:20:00 Test Item Value Reference Range Interpretation Comments MCV (test code = MCV) 79.3 80.0-98.0 [facility] HospitalLgojhuqWJLHLKELVC2931-92-30 09:20:00 Test Item Value Reference Range Interpretation Comments MCHC (test code = MCHC) 33.0 32.0-36.0 [facility] HospitalAahazdzZFUFERRNYL8303-00-98 09:20:00 Test Item Value Reference Range Interpretation Comments MCH (test code = MCH) 26.2 pg 27.0-31.0 [place] 636896-12-24 09:20:00 Test Item Value Reference Range Interpretation Comments Hct (test code = Hct) 29.4 36.0-48.0 [facility] HospitalEmralnhVZGIPETXVH3165-56-28 09:20:00 Test Item Value Reference Range Interpretation Comments Hgb (test code = Hgb) 9.7 12.0-16.0 [facility] HospitalFtqvfxbFSNORKSYNF0300-37-48 09:20:00 Test Item Value Reference Range Interpretation Comments RBC (test code = RBC) 3.70 4.20-5.40 [place] [id number] 09:20:00 Test Item Value Reference Range Interpretation Comments WBC (test code = WBC) 5.7 3.7-10.4 [facility] HospitalIrtyrfzMYQKUPBLGQ7018-62-49 09:20:00 Test Item Value Reference Range Interpretation Comments Basophils # (test code 0.1 See_Comment [Aut omated message] The = Basophils #) system which generated this result tra nsmitted reference range : <=0.2. The reference r leo was not used to int erpret this result as normal/abnormal . [facility] HospitalAxlnvhqITFYVIVERP6668-53-72 09:20:00 Test Item Value Reference Range Interpretation Comments Lymphocytes # (test code = Lymphocytes 2.2 1.0-5.5 #) [facility] HospitalAoeuxsiIVEQBZOSZI4927-61-42 09:20:00 Test Item Value Reference Range Interpretation Comments Eosinophils # (test code 0.5 See_Comment [A utomated message] The = Eosinophils #) system whic h generated this result tra nsmitted reference range : <=0.5. The reference r leo was not used to int erpret this result as normal/abnormal . [facility] HospitalRiybuhwDIFQEQXTQY5540-86-28 09:20:00 Test Item Value Reference Range Interpretation Comments Monocytes # (test code 0.5 See_Comment [Aut omated message] The = Monocytes #) system which generated this result tra nsmitted reference range : <=0.8. The reference r leo was not used to int erpret this result as normal/abnormal . [facility] HospitalBxabwirIBOMXLFIUB5106-23-39 09:20:00 Test Item Value Reference Range Interpretation Comments Basophils (test code = 1.1 See_Comment [Aut omated message] The Basophils) system which ge nerated this result tra nsmitted reference range : <=1.0. The reference r leo was not used to int erpret this result as normal/abnormal . [facility] HospitalNenqxpvZQSORZXCBD1910-09-76 09:20:00 Test Item Value Reference Range Interpretation Comments Segs-Bands # (test code = Segs-Bands #) 2.3 1.5-8.1 [facility] HospitalKgpveugIRVVQTWIAE5359-26-73 09:20:00 Test Item Value Reference Range Interpretation Comments Eosinophils (test code = 9.5 See_Comment [A utomated message] The Eosinophils) system which ge nerated this result tra nsmitted reference range : <=4.0. The reference r leo was not used to int erpret this result as normal/abnormal . [facility] HospitalMqclawvHRCIVUJBDC0281-01-78 09:20:00 Test Item Value Reference Range Interpretation Comments Monocytes (test code = Monocytes) 9.0 2.0-12.0 [facility] HospitalOqqkiedMABWMABWKG2191-47-34 09:20:00 Test Item Value Reference Range Interpretation Comments Lymphocytes (test code = Lymphocytes) 38.9 20.0-40.0 [facility] HospitalZodkoqtJJVAQJFGVO8604-11-36 09:20:00 Test Item Value Reference Range Interpretation Comments Segs (test code = Segs) 41.5 45.0-75.0 [facility] HospitalKmjwitfXAWAIVHWSO2676-04-19 09:20:00 Test Item Value Reference Range Interpretation Comments MPV (test code = MPV) 9.7 7.4-10.4 [facility]PvjhmtxHMNZSCWTPV5782-21-74 09:20:00 Test Item Value Reference Range Interpretation Comments Platelet (test code = Platelet) 184 133-450 [facility] HospitalVvpcvzzTJHKGTDTFR1785-81-79 09:20:00 Test Item Value Reference Range Interpretation Comments RDW (test code = RDW) 15.9 11.5-14.5 [facility] HospitalIabxdafKOLHTZMWNE0532-84-97 09:20:00 Test Item Value Reference Range Interpretation Comments MCV (test code = MCV) 79.3 80.0-98.0 [facility] HospitalJoowxisXPJBHMJKZG4211-33-51 09:20:00 Test Item Value Reference Range Interpretation Comments MCHC (test code = MCHC) 33.0 32.0-36.0 [facility] HospitalThiwkmeUBYGNRSBOD8597-16-17 09:20:00 Test Item Value Reference Range Interpretation Comments MCH (test code = MCH) 26.2 pg 27.0-31.0 [facility] HospitalWlpzidmIYIWIANILP7657-69-44 09:20:00 Test Item Value Reference Range Interpretation Comments Hct (test code = Hct) 29.4 36.0-48.0 [facility] HospitalNowlkdqBPOQOUQMUD0427-69-59 09:20:00 Test Item Value Reference Range Interpretation Comments Hgb (test code = Hgb) 9.7 12.0-16.0 [facility] HospitalGyoceskIGFXHMLGLZ9399-34-20 09:20:00 Test Item Value Reference Range Interpretation Comments RBC (test code = RBC) 3.70 4.20-5.40 [facility] HospitalDcxrznqKCXCIWQKHG4048-00-09 09:20:00 Test Item Value Reference Range Interpretation Comments WBC (test code = WBC) 5.7 3.7-10.4 [facility] HospitalNbcnrdrQNADFUDDAA8920-90-48 09:20:00 Test Item Value Reference Range Interpretation Comments Basophils # (test code 0.1 See_Comment [Aut omated message] The = Basophils #) system which generated this result tra nsmitted reference range : <=0.2. The reference r leo was not used to int erpret this result as normal/abnormal . [facility] HospitalZizntaaWOBJTVEEOV6472-94-86 09:20:00 Test Item Value Reference Range Interpretation Comments Lymphocytes # (test code = Lymphocytes 2.2 1.0-5.5 #) [facility] HospitalTstxntmWQQUUXSMKQ0655-63-49 09:20:00 Test Item Value Reference Range Interpretation Comments Eosinophils # (test code 0.5 See_Comment [A utomated message] The = Eosinophils #) system whic h generated this result tra nsmitted reference range : <=0.5. The reference r leo was not used to int erpret this result as normal/abnormal . [facility] HospitalBigfptfYDJFBUYOXC4890-00-33 09:20:00 Test Item Value Reference Range Interpretation Comments Monocytes # (test code 0.5 See_Comment [Aut omated message] The = Monocytes #) system which generated this result tra nsmitted reference range : <=0.8. The reference r leo was not used to int erpret this result as normal/abnormal . [facility] HospitalPfejuntOBNMEVSIIJ4029-57-34 09:20:00 Test Item Value Reference Range Interpretation Comments Basophils (test code = 1.1 See_Comment [Aut omated message] The Basophils) system which ge nerated this result tra nsmitted reference range : <=1.0. The reference r leo was not used to int erpret this result as normal/abnormal . [place] [address]-12-24 09:20:00 Test Item Value Reference Range Interpretation Comments Segs-Bands # (test code = Segs-Bands #) 2.3 1.5-8.1 [facility] HospitalIjqavtwJXRVSWXCVP9773-64-56 09:20:00 Test Item Value Reference Range Interpretation Comments Eosinophils (test code = 9.5 See_Comment [A utomated message] The Eosinophils) system which ge nerated this result tra nsmitted reference range : <=4.0. The reference r leo was not used to int erpret this result as normal/abnormal . [facility] HospitalHnblvnqFZVYWJHPGW8775-64-43 09:20:00 Test Item Value Reference Range Interpretation Comments Monocytes (test code = Monocytes) 9.0 2.0-12.0 [facility] HospitalGtfpndgOIUEJSZNRA7481-82-79 09:20:00 Test Item Value Reference Range Interpretation Comments Lymphocytes (test code = Lymphocytes) 38.9 20.0-40.0 [facility] HospitalUxygligQLVBSJJMXP7017-71-75 09:20:00 Test Item Value Reference Range Interpretation Comments Segs (test code = Segs) 41.5 45.0-75.0 [facility] HospitalFddhyrvMLERSBUJJM1465-60-97 09:20:00 Test Item Value Reference Range Interpretation Comments MPV (test code = MPV) 9.7 7.4-10.4 [facility] HospitalTdgquxjQJPEDLHDBC0311-66-38 09:20:00 Test Item Value Reference Range Interpretation Comments Platelet (test code = Platelet) 184 133-450 [facility] HospitalNnglsfjTOOXMOGGYN7041-92-39 09:20:00 Test Item Value Reference Range Interpretation Comments RDW (test code = RDW) 15.9 11.5-14.5 [facility] HospitalCtpfpdzZJBJAYRSIY2264-41-83 09:20:00 Test Item Value Reference Range Interpretation Comments MCV (test code = MCV) 79.3 80.0-98.0 [facility] HospitalPiyfgzmPEYFJQSKRR8802-08-22 09:20:00 Test Item Value Reference Range Interpretation Comments MCHC (test code = MCHC) 33.0 32.0-36.0 [facility] HospitalYbluaieYPJQACIILR5353-69-72 09:20:00 Test Item Value Reference Range Interpretation Comments MCH (test code = MCH) 26.2 pg 27.0-31.0 [facility] HospitalKhyveinELBDJKTVAE7598-96-86 09:20:00 Test Item Value Reference Range Interpretation Comments Hct (test code = Hct) 29.4 36.0-48.0 [place] [id number] 09:20:00 Test Item Value Reference Range Interpretation Comments Hgb (test code = Hgb) 9.7 12.0-16.0 [place] 636896-12-24 09:20:00 Test Item Value Reference Range Interpretation Comments RBC (test code = RBC) 3.70 4.20-5.40 [facility] HospitalMredeseAUZCUJFODB5818-77-62 09:20:00 Test Item Value Reference Range Interpretation Comments WBC (test code = WBC) 5.7 3.7-10.4 [facility] HospitalAyxjsztPZZIRDCNAK2232-97-01 09:20:00 Test Item Value Reference Range Interpretation Comments Basophils # (test code 0.1 See_Comment [Aut omated message] The = Basophils #) system which generated this result tra nsmitted reference range : <=0.2. The reference r leo was not used to int erpret this result as normal/abnormal . [facility] HospitalVqwdfubSRUEOZUNUF4339-05-73 09:20:00 Test Item Value Reference Range Interpretation Comments Lymphocytes # (test code = Lymphocytes 2.2 1.0-5.5 #) [facility] HospitalMgowmgjHMBWTWHTYH6121-76-90 09:20:00 Test Item Value Reference Range Interpretation Comments Eosinophils # (test code 0.5 See_Comment [A utomated message] The = Eosinophils #) system whic h generated this result tra nsmitted reference range : <=0.5. The reference r leo was not used to int erpret this result as normal/abnormal . [facility] HospitalHfnksoeDWKIXHWDUZ2555-39-01 09:20:00 Test Item Value Reference Range Interpretation Comments Monocytes # (test code 0.5 See_Comment [Aut omated message] The = Monocytes #) system which generated this result tra nsmitted reference range : <=0.8. The reference r leo was not used to int erpret this result as normal/abnormal . [place] [id number] 09:20:00 Test Item Value Reference Range Interpretation Comments Basophils (test code = 1.1 See_Comment [Aut omated message] The Basophils) system which ge nerated this result tra nsmitted reference range : <=1.0. The reference r leo was not used to int erpret this result as normal/abnormal . [facility] HospitalLjipkwmEJIXZYILKG0198-68-87 09:20:00 Test Item Value Reference Range Interpretation Comments Segs-Bands # (test code = Segs-Bands #) 2.3 1.5-8.1 [facility] HospitalKzsffudQIZEMNFJYT7100-44-11 09:20:00 Test Item Value Reference Range Interpretation Comments Eosinophils (test code = 9.5 See_Comment [A utomated message] The Eosinophils) system which ge nerated this result tra nsmitted reference range : <=4.0. The reference r leo was not used to int erpret this result as normal/abnormal . [facility] HospitalAyzmpplXRUITGEJUI4235-81-85 09:20:00 Test Item Value Reference Range Interpretation Comments Monocytes (test code = Monocytes) 9.0 2.0-12.0 [facility] HospitalKbzjyjkSFRMUXUPWZ6621-44-63 09:20:00 Test Item Value Reference Range Interpretation Comments Lymphocytes (test code = Lymphocytes) 38.9 20.0-40.0 [facility] HospitalJejaxkrMJXJPVFSDE4557-93-33 09:20:00 Test Item Value Reference Range Interpretation Comments Segs (test code = Segs) 41.5 45.0-75.0 [facility]2016-12-24 06:34:00 Test Item Value Reference Range Interpretation Comments Magnesium Lvl (test code = Magnesium 1.7 1.8-2.4 Lvl) [facility]2016-12-24 06:34:00 Test Item Value Reference Range Interpretation Comments Phosphorus (test code = Phosphorus) 4.2 2.5-4.5 [facility]NoytfdfQJQKFESSYOJR6556-92-00 06:34:00 Test Item Value Reference Range Interpretation Comments AGAP (test code = AGAP) 14.3 10.0-20.0 [facility] HospitalUxojyvqINHJPAZTXNMP4778-68-32 06:34:00 Test Item Value Reference Range Interpretation Comments eGFR (test code = eGFR) 41 [facility] HospitalFnoasgpDOWZIWDBHGBP8064-73-00 06:34:00 Test Item Value Reference Range Interpretation Comments Chloride Lvl (test code = Chloride Lvl) 103 95-109 [facility] HospitalIrflinkGHZMFLSYHBDX5636-93-95 06:34:00 Test Item Value Reference Range Interpretation Comments Calcium Lvl (test code = Calcium Lvl) 8.5 8.5-10.5 [facility] HospitalErgseohOGWCBBTHCOXX8794-56-36 06:34:00 Test Item Value Reference Range Interpretation Comments CO2 (test code = CO2) 32 24-32 [facility] HospitalAurlyjfMNQUCVXOISNL4710-14-85 06:34:00 Test Item Value Reference Range Interpretation Comments Glucose Lvl (test code = Glucose Lvl) 173 70-99 [facility] HospitalDcmdgnbRUYTLWEDFCHK3361-59-46 06:34:00 Test Item Value Reference Range Interpretation Comments BUN (test code = BUN) 37 7-22 [facility] HospitalFiobhixDNKJQXZBWZEW6786-76-21 06:34:00 Test Item Value Reference Range Interpretation Comments Creatinine Lvl (test code = Creatinine 1.63 0.50-1.40 Lvl) [facility] HospitalUiyaqcuJWUCNNYMDCCJ4307-65-41 06:34:00 Test Item Value Reference Range Interpretation Comments Potassium Lvl (test code = Potassium 4.3 3.5-5.1 Lvl) [facility] HospitalDufchxiEAYCUJHOEYSY9418-58-82 06:34:00 Test Item Value Reference Range Interpretation Comments Sodium Lvl (test code = Sodium Lvl) 145 135-145 [facility]2016-12-24 06:34:00 Test Item Value Reference Range Interpretation Comments Magnesium Lvl (test code = Magnesium 1.7 1.8-2.4 Lvl) [facility]2016-12-24 06:34:00 Test Item Value Reference Range Interpretation Comments Phosphorus (test code = Phosphorus) 4.2 2.5-4.5 [facility] HospitalDjmzqieRIPJDFFGGGTQ5637-56-37 06:34:00 Test Item Value Reference Range Interpretation Comments AGAP (test code = AGAP) 14.3 10.0-20.0 [facility] HospitalTjkkrkfPVNWAZDHVNGG8291-89-33 06:34:00 Test Item Value Reference Range Interpretation Comments eGFR (test code = eGFR) 41 [facility] HospitalDxqaekpRQZHAPVBFZSP8215-56-45 06:34:00 Test Item Value Reference Range Interpretation Comments Chloride Lvl (test code = Chloride Lvl) 103 95-109 [facility] HospitalBialhkrZUBDRSSVOPGH5063-20-61 06:34:00 Test Item Value Reference Range Interpretation Comments Calcium Lvl (test code = Calcium Lvl) 8.5 8.5-10.5 [facility] HospitalNfscicsXCLOUMFFMUCE1985-31-39 06:34:00 Test Item Value Reference Range Interpretation Comments CO2 (test code = CO2) 32 24-32 [facility] HospitalLeqgpwoOLWRVQFTJWWY8292-15-83 06:34:00 Test Item Value Reference Range Interpretation Comments Glucose Lvl (test code = Glucose Lvl) 173 70-99 [facility] HospitalGqajwbhIWZBEMRGLUGW9510-04-20 06:34:00 Test Item Value Reference Range Interpretation Comments BUN (test code = BUN) 37 7-22 [facility] HospitalCsfywqyXZTEYRGYTBDG4923-28-93 06:34:00 Test Item Value Reference Range Interpretation Comments Creatinine Lvl (test code = Creatinine 1.63 0.50-1.40 Lvl) [facility] HospitalTqxlzfeIFBICMFYXLOB2972-32-69 06:34:00 Test Item Value Reference Range Interpretation Comments Potassium Lvl (test code = Potassium 4.3 3.5-5.1 Lvl) [facility] HospitalBnmramqSESSSVEHSSCY7161-68-54 06:34:00 Test Item Value Reference Range Interpretation Comments Sodium Lvl (test code = Sodium Lvl) 145 135-145 [facility]2016-12-24 06:34:00 Test Item Value Reference Range Interpretation Comments Magnesium Lvl (test code = Magnesium 1.7 1.8-2.4 Lvl) [facility]2016-12-24 06:34:00 Test Item Value Reference Range Interpretation Comments Phosphorus (test code = Phosphorus) 4.2 2.5-4.5 [facility] HospitalAvraedsCKKBPNCZZLSC7624-26-99 06:34:00 Test Item Value Reference Range Interpretation Comments AGAP (test code = AGAP) 14.3 10.0-20.0 [facility] HospitalPvupuimYUEYCRJNZWSE0830-32-45 06:34:00 Test Item Value Reference Range Interpretation Comments eGFR (test code = eGFR) 41 [facility] HospitalLnouzsxTJDDOKFRAZJC8128-88-31 06:34:00 Test Item Value Reference Range Interpretation Comments Chloride Lvl (test code = Chloride Lvl) 103 95-109 [facility] HospitalMohzmcmAZEIHJJQOUCP0164-37-18 06:34:00 Test Item Value Reference Range Interpretation Comments Calcium Lvl (test code = Calcium Lvl) 8.5 8.5-10.5 [facility] HospitalUjmqdmiGWRHBTXZGDYV9382-80-70 06:34:00 Test Item Value Reference Range Interpretation Comments CO2 (test code = CO2) 32 24-32 [facility] HospitalVyujjguLKKWZLCAIWYM7804-48-69 06:34:00 Test Item Value Reference Range Interpretation Comments Glucose Lvl (test code = Glucose Lvl) 173 70-99 [facility] HospitalSnudajzVDSDNNNVYVND8694-39-70 06:34:00 Test Item Value Reference Range Interpretation Comments BUN (test code = BUN) 37 7-22 [facility] HospitalSyujkjcWCWKJMWOFBOL3693-26-56 06:34:00 Test Item Value Reference Range Interpretation Comments Creatinine Lvl (test code = Creatinine 1.63 0.50-1.40 Lvl) [facility] HospitalQxcpmltDCCJQWXNFOOZ4848-21-33 06:34:00 Test Item Value Reference Range Interpretation Comments Potassium Lvl (test code = Potassium 4.3 3.5-5.1 Lvl) [facility] HospitalPwddviaFHBLLGVDQULP8589-09-32 06:34:00 Test Item Value Reference Range Interpretation Comments Sodium Lvl (test code = Sodium Lvl) 145 135-145 [facility]2016-12-24 06:34:00 Test Item Value Reference Range Interpretation Comments Magnesium Lvl (test code = Magnesium 1.7 1.8-2.4 Lvl) [facility]2016-12-24 06:34:00 Test Item Value Reference Range Interpretation Comments Phosphorus (test code = Phosphorus) 4.2 2.5-4.5 [facility] HospitalGhpwaeiZZXHWYXNCEBY7333-24-92 06:34:00 Test Item Value Reference Range Interpretation Comments AGAP (test code = AGAP) 14.3 10.0-20.0 [facility] HospitalZnhoxgbTCHKMJBNXQPL0286-04-97 06:34:00 Test Item Value Reference Range Interpretation Comments eGFR (test code = eGFR) 41 [facility] HospitalOohrmsaMFBRGKDJHNBR7205-76-51 06:34:00 Test Item Value Reference Range Interpretation Comments Chloride Lvl (test code = Chloride Lvl) 103 95-109 [facility] HospitalDroidmnZXQSFJHJJJKL8535-08-05 06:34:00 Test Item Value Reference Range Interpretation Comments Calcium Lvl (test code = Calcium Lvl) 8.5 8.5-10.5 [facility] HospitalJijrpvyCVGRCFOCBAYM2595-64-65 06:34:00 Test Item Value Reference Range Interpretation Comments CO2 (test code = CO2) 32 24-32 [facility] HospitalUtheemcVAWWKJTMGRHQ9512-10-63 06:34:00 Test Item Value Reference Range Interpretation Comments Glucose Lvl (test code = Glucose Lvl) 173 70-99 [facility] HospitalVnhiracITIZGMJDUUMY7659-52-44 06:34:00 Test Item Value Reference Range Interpretation Comments BUN (test code = BUN) 37 7-22 [facility] HospitalHmyxqanWCWHUPXHQSLN7393-56-32 06:34:00 Test Item Value Reference Range Interpretation Comments Creatinine Lvl (test code = Creatinine 1.63 0.50-1.40 Lvl) [facility] HospitalDespivcGJMYYCECNZRU4881-94-33 06:34:00 Test Item Value Reference Range Interpretation Comments Potassium Lvl (test code = Potassium 4.3 3.5-5.1 Lvl) [facility] HospitalAynmvqlXAFNNNLYDYFU2046-05-82 06:34:00 Test Item Value Reference Range Interpretation Comments Sodium Lvl (test code = Sodium Lvl) 145 135-145 [facility]2016-12-22 16:21:00 Test Item Value Reference Range Interpretation Comments Ammonia (test code = Ammonia) 48.0 [facility]2016-12-22 16:21:00 Test Item Value Reference Range Interpretation Comments Ammonia (test code = Ammonia) 48.0 [facility]2016-12-22 16:21:00 Test Item Value Reference Range Interpretation Comments Ammonia (test code = Ammonia) 48.0 [facility]2016-12-22 16:21:00 Test Item Value Reference Range Interpretation Comments Ammonia (test code = Ammonia) 48.0 [facility]NFXELPBWY5801[facility] 14:56:00 Test Item Value Reference Range Interpretation Comments IVETTE Interp (test code Pattern appears = IVETTE Interp) Nucleolar. [facility] HospitalAkghouyHWZYYCAXSG6430-43-76 14:56:00 Test Item Value Reference Range Interpretation Comments IVETTE Titer (test code = 1:40 *ABN*(06/11/16 IVETTE Titer) 8:56 AM) [facility] HospitalIlkgoqsIJPGIRQRUF7102-16-58 14:56:00 Test Item Value Reference Range Interpretation Comments Hep Bs Ag (test code Negative *NA*(06/11/16 = Hep Bs Ag) 8:56 AM) [facility] HospitalYgzkvbcLJSXDURPLZ2482-19-61 14:56:00 Test Item Value Reference Range Interpretation Comments Hep C Ab (test code = Negative *NA*(06/11/16 Hep C Ab) 8:56 AM) [facility] HospitalHmrknazWKZJIZXKML1871-64-17 14:56:00 Test Item Value Reference Range Interpretation Comments Hep B Core IgM (test Negative *NA*(06/11/16 code = Hep B Core 8:56 AM) IgM) [facility] HospitalNdbaucmXMIXVNMSLW6999-01-58 14:56:00 Test Item Value Reference Range Interpretation Comments Hep A IgM (test code Negative *NA*(06/11/16 = Hep A IgM) 8:56 AM) [facility] HospitalTaevjvyUIWVFSKKSJ8744-38-74 14:56:00 Test Item Value Reference Range Interpretation Comments HIV Ag/Ab 4th Gen Negative *NA*(06/11/16 (test code = HIV 8:56 AM) Ag/Ab 4th Gen) [facility] HospitalVtuiihzKKSXKBCCFZ6676-82-36 14:56:00 Test Item Value Reference Range Interpretation Comments IVETTE (test code = IVETTE) Positive *ABN*(06/11/16 8:56 AM) [facility] HospitalMntakvcBMIRHVBXVX2450-37-98 14:56:00 Test Item Value Reference Range Interpretation Comments IVETTE Interp (test code Pattern appears = IVETTE Interp) Nucleolar. [facility] HospitalGsdikizLKGXSJKHOT4176-06-56 14:56:00 Test Item Value Reference Range Interpretation Comments IVETTE Titer (test code = 1:40 *ABN*(06/11/16 IVETTE Titer) 8:56 AM) [facility] HospitalVstmexpEHCPMBDUKJ6567-12-73 14:56:00 Test Item Value Reference Range Interpretation Comments Hep Bs Ag (test code Negative *NA*(06/11/16 = Hep Bs Ag) 8:56 AM) [facility] HospitalLbokpynZGCXMEUJGY8597-61-66 14:56:00 Test Item Value Reference Range Interpretation Comments Hep C Ab (test code = Negative *NA*(06/11/16 Hep C Ab) 8:56 AM) [facility] HospitalGyoqdxzMIGOZWIPKW4778-05-49 14:56:00 Test Item Value Reference Range Interpretation Comments Hep B Core IgM (test Negative *NA*(06/11/16 code = Hep B Core 8:56 AM) IgM) [facility] HospitalBwkouueMQKMHDJAGE6226-15-67 14:56:00 Test Item Value Reference Range Interpretation Comments Hep A IgM (test code Negative *NA*(06/11/16 = Hep A IgM) 8:56 AM) [place] [address]2006-12-22 14:56:00 Test Item Value Reference Range Interpretation Comments HIV Ag/Ab 4th Gen Negative *NA*(06/11/16 (test code = HIV 8:56 AM) Ag/Ab 4th Gen) [facility] HospitalTzxjkmwHZTQJIZJEA6823-58-51 14:56:00 Test Item Value Reference Range Interpretation Comments IVETTE (test code = IVETTE) Positive *ABN*(06/11/16 8:56 AM) [facility] HospitalBgjusmtLJQSJOLASR6337-62-97 14:56:00 Test Item Value Reference Range Interpretation Comments IVETTE Interp (test code Pattern appears = IVETTE Interp) Nucleolar. [facility] HospitalKvbkctqQLMVLAXFVC7680-48-83 14:56:00 Test Item Value Reference Range Interpretation Comments IVETTE Titer (test code = 1:40 *ABN*(06/11/16 IVETTE Titer) 8:56 AM) [facility] HospitalLfmmbnoXMTHRPHKFW1311-40-77 14:56:00 Test Item Value Reference Range Interpretation Comments Hep Bs Ag (test code Negative *NA*(06/11/16 = Hep Bs Ag) 8:56 AM) [facility] HospitalAqrmfziAUCNSDZPJT9991-15-95 14:56:00 Test Item Value Reference Range Interpretation Comments Hep C Ab (test code = Negative *NA*(06/11/16 Hep C Ab) 8:56 AM) [facility] HospitalGutcuklTXMWUQVQYB1196-08-83 14:56:00 Test Item Value Reference Range Interpretation Comments Hep B Core IgM (test Negative *NA*(06/11/16 code = Hep B Core 8:56 AM) IgM) [facility] HospitalUcegojzEZZDRGNGSS2958-12-31 14:56:00 Test Item Value Reference Range Interpretation Comments Hep A IgM (test code Negative *NA*(06/11/16 = Hep A IgM) 8:56 AM) [facility] HospitalWowjjmcBFFZFBWCMK6042-02-36 14:56:00 Test Item Value Reference Range Interpretation Comments HIV Ag/Ab 4th Gen Negative *NA*(06/11/16 (test code = HIV 8:56 AM) Ag/Ab 4th Gen) [facility] HospitalTbbuksbCPHUSZUHHC9176-93-23 14:56:00 Test Item Value Reference Range Interpretation Comments IVETTE (test code = IVETTE) Positive *ABN*(06/11/16 8:56 AM) [facility] HospitalIjwxpqrAEHBVRFCPM7233-02-27 14:56:00 Test Item Value Reference Range Interpretation Comments IVETTE Interp (test code Pattern appears = IVETTE Interp) Nucleolar. [facility]UipjgndRYTLHQCZCD1025-03-27 14:56:00 Test Item Value Reference Range Interpretation Comments IVETTE Titer (test code = 1:40 *ABN*(06/11/16 IVETTE Titer) 8:56 AM) [facility] HospitalFjrugixIOARXELVKL2322-98-75 14:56:00 Test Item Value Reference Range Interpretation Comments Hep Bs Ag (test code Negative *NA*(06/11/16 = Hep Bs Ag) 8:56 AM) [facility] TexasVgmctngQVAZLIWFMF2811-51-14 14:56:00 Test Item Value Reference Range Interpretation Comments Hep C Ab (test code = Negative *NA*(06/11/16 Hep C Ab) 8:56 AM) [facility] HospitalYmtaanrIIKINZEOKC1248-91-36 14:56:00 Test Item Value Reference Range Interpretation Comments Hep B Core IgM (test Negative *NA*(06/11/16 code = Hep B Core 8:56 AM) IgM) [facility] HospitalIvbomokYJPMCKFMIW1525-95-13 14:56:00 Test Item Value Reference Range Interpretation Comments Hep A IgM (test code Negative *NA*(06/11/16 = Hep A IgM) 8:56 AM) [facility] TexasAhsrdfaFQWLJYOHXR3153-28-68 14:56:00 Test Item Value Reference Range Interpretation Comments HIV Ag/Ab 4th Gen Negative *NA*(06/11/16 (test code = HIV 8:56 AM) Ag/Ab 4th Gen) [facility] TexasLknzglmXKAHXVJVFP1873-66-52 14:56:00 Test Item Value Reference Range Interpretation Comments IVETTE (test code = IVETTE) Positive *ABN*(06/11/16 8:56 AM) [facility]2016-12-22 10:42:00 Test Item Value Reference Range Interpretation Comments Bili Total (test code = Bili Total) 0.1 0.2-1.3 [facility] TexasGHH [facility] VVNOU8432-24-17 10:42:00 Test Item Value Reference Range Interpretation Comments Total Protein (test code = Total 5.2 6.4-8.4 Protein) [facility]2016-12-22 10:42:00 Test Item Value Reference Range Interpretation Comments Albumin Lvl (test code = Albumin Lvl) 1.6 3.5-5.0 [facility]2016-12-22 10:42:00 Test Item Value Reference Range Interpretation Comments B/C Ratio (test code = B/C Ratio) 20 6-25 [facility]2016-12-22 10:42:00 Test Item Value Reference Range Interpretation Comments Globulin (test code = Globulin) 3.6 2.7-4.2 [facility]2016-12-22 10:42:00 Test Item Value Reference Range Interpretation Comments A/G Ratio (test code = A/G Ratio) 0.4 0.7-1.6 [facility]2016-12-22 10:42:00 Test Item Value Reference Range Interpretation Comments Alk Phos (test code = Alk Phos) 74 39-136 [facility]2016-12-22 10:42:00 Test Item Value Reference Range Interpretation Comments ALT (test code = ALT) 14 See_Comment [Auto mated message] The system which ge nerated this result transmit rohit reference range : <=65. The reference range was not used to interpr et this result as reij l/abnormal. [facility]2016-12-22 10:42:00 Test Item Value Reference Range Interpretation Comments AST (test code = AST) 13 See_Comment [Auto mated message] The system which ge nerated this result transmit rohit reference range : <=37. The reference range was not used to interpr et this result as reji l/abnormal. [facility]SC[facility]U3176[facility] 10:42:00 Test Item Value Reference Range Interpretation Comments INR (test code = INR) 1.06 0.85-1.17 [facility] 10:42:00 Test Item Value Reference Range Interpretation Comments PT (test code = PT) 14.0 s 12.0-14.7 [facility]XafhzeuEGBASYSRQQ2286-06-38 10:42:00 Test Item Value Reference Range Interpretation Comments PTT (test code = PTT) 36.4 s 22.9-35.8 [facility] [id number] 10:42:00 Test Item Value Reference Range Interpretation Comments Hgb A1C (test code = Hgb A1C) 10.5 [facility]2016-12-22 10:42:00 Test Item Value Reference Range Interpretation Comments Bili Total (test code = Bili Total) 0.1 0.2-1.3 [facility]2016-12-22 10:42:00 Test Item Value Reference Range Interpretation Comments Total Protein (test code = Total 5.2 6.4-8.4 Protein) [facility]2016-12-22 10:42:00 Test Item Value Reference Range Interpretation Comments Albumin Lvl (test code = Albumin Lvl) 1.6 3.5-5.0 [facility]2016-12-22 10:42:00 Test Item Value Reference Range Interpretation Comments B/C Ratio (test code = B/C Ratio) 20 6-25 [place] 060166-12-22 10:42:00 Test Item Value Reference Range Interpretation Comments Globulin (test code = Globulin) 3.6 2.7-4.2 [facility]2016-12-22 10:42:00 Test Item Value Reference Range Interpretation Comments A/G Ratio (test code = A/G Ratio) 0.4 0.7-1.6 [place] 060166-12-22 10:42:00 Test Item Value Reference Range Interpretation Comments Alk Phos (test code = Alk Phos) 74 39-136 [facility]2016-12-22 10:42:00 Test Item Value Reference Range Interpretation Comments ALT (test code = ALT) 14 See_Comment [Auto mated message] The system which ge nerated this result transmit rohit reference range : <=65. The reference range was not used to interpr et this result as reji l/abnormal. [facility]2016-12-22 10:42:00 Test Item Value Reference Range Interpretation Comments AST (test code = AST) 13 See_Comment [Auto mated message] The system which ge nerated this result transmit rohit reference range : <=37. The reference range was not used to interpr et this result as reji l/abnormal. [facility] HospitalXsiaqjlHRKPKPMMHA4459-54-28 10:42:00 Test Item Value Reference Range Interpretation Comments INR (test code = INR) 1.06 0.85-1.17 [facility] HospitalDxbvmxaLIXQOUUJLG9192-96-36 10:42:00 Test Item Value Reference Range Interpretation Comments PT (test code = PT) 14.0 s 12.0-14.7 [address]12-22 10:42:00 Test Item Value Reference Range Interpretation Comments PTT (test code = PTT) 36.4 s 22.9-35.8 [facility] [id number] 10:42:00 Test Item Value Reference Range Interpretation Comments Hgb A1C (test code = Hgb A1C) 10.5 [facility]2016-12-22 10:42:00 Test Item Value Reference Range Interpretation Comments Bili Total (test code = Bili Total) 0.1 0.2-1.3 [facility]2016-12-22 10:42:00 Test Item Value Reference Range Interpretation Comments Total Protein (test code = Total 5.2 6.4-8.4 Protein) [facility]2016-12-22 10:42:00 Test Item Value Reference Range Interpretation Comments Albumin Lvl (test code = Albumin Lvl) 1.6 3.5-5.0 [facility]2016-12-22 10:42:00 Test Item Value Reference Range Interpretation Comments B/C Ratio (test code = B/C Ratio) 20 6-25 [facility]2016-12-22 10:42:00 Test Item Value Reference Range Interpretation Comments Globulin (test code = Globulin) 3.6 2.7-4.2 [facility]2016-12-22 10:42:00 Test Item Value Reference Range Interpretation Comments A/G Ratio (test code = A/G Ratio) 0.4 0.7-1.6 [facility]2016-12-22 10:42:00 Test Item Value Reference Range Interpretation Comments Alk Phos (test code = Alk Phos) 74 39-136 [facility]2016-12-22 10:42:00 Test Item Value Reference Range Interpretation Comments ALT (test code = ALT) 14 See_Comment [Auto mated message] The system which ge nerated this result transmit rohit reference range : <=65. The reference range was not used to interpr et this result as reji l/abnormal. [facility]2016-12-22 10:42:00 Test Item Value Reference Range Interpretation Comments AST (test code = AST) 13 See_Comment [Auto mated message] The system which ge nerated this result transmit rohit reference range : <=37. The reference range was not used to interpr et this result as reji l/abnormal. [facility] HospitalUlobowwGXIUHQIDDC1246-23-86 10:42:00 Test Item Value Reference Range Interpretation Comments INR (test code = INR) 1.06 0.85-1.17 [facility] HospitalVwglrevLZLLUXXJEZ8933-57-41 10:42:00 Test Item Value Reference Range Interpretation Comments PT (test code = PT) 14.0 s 12.0-14.7 [facility] HospitalFtietalKGHZZJWDGY3093-62-22 10:42:00 Test Item Value Reference Range Interpretation Comments PTT (test code = PTT) 36.4 s 22.9-35.8 [facility] [id number] 10:42:00 Test Item Value Reference Range Interpretation Comments Hgb A1C (test code = Hgb A1C) 10.5 [facility]2016-12-22 10:42:00 Test Item Value Reference Range Interpretation Comments Bili Total (test code = Bili Total) 0.1 0.2-1.3 [facility]2016-12-22 10:42:00 Test Item Value Reference Range Interpretation Comments Total Protein (test code = Total 5.2 6.4-8.4 Protein) [facility]2016-12-22 10:42:00 Test Item Value Reference Range Interpretation Comments Albumin Lvl (test code = Albumin Lvl) 1.6 3.5-5.0 [facility]2016-12-22 10:42:00 Test Item Value Reference Range Interpretation Comments B/C Ratio (test code = B/C Ratio) 20 6-25 [facility]2016-12-22 10:42:00 Test Item Value Reference Range Interpretation Comments Globulin (test code = Globulin) 3.6 2.7-4.2 [facility]2016-12-22 10:42:00 Test Item Value Reference Range Interpretation Comments A/G Ratio (test code = A/G Ratio) 0.4 0.7-1.6 [facility]2016-12-22 10:42:00 Test Item Value Reference Range Interpretation Comments Alk Phos (test code = Alk Phos) 74 39-136 [facility]2016-12-22 10:42:00 Test Item Value Reference Range Interpretation Comments ALT (test code = ALT) 14 See_Comment [Auto mated message] The system which ge nerated this result transmit rohit reference range : <=65. The reference range was not used to interpr et this result as reji l/abnormal. [facility] CenterHuango.cnCHEM [id number] 10:42:00 Test Item Value Reference Range Interpretation Comments AST (test code = AST) 13 See_Comment [Auto mated message] The system which ge nerated this result transmit rohit reference range : <=37. The reference range was not used to interpr et this result as reji l/abnormal. [facility]LpiyvbxHKUMVFDPAQ5860-84-01 10:42:00 Test Item Value Reference Range Interpretation Comments INR (test code = INR) 1.06 0.85-1.17 [facility] TexasGsnagqrKTFVUJKEBV0905-58-21 10:42:00 Test Item Value Reference Range Interpretation Comments PT (test code = PT) 14.0 s 12.0-14.7 [facility] TexasOegoqsoCSELJVNGWT0205-92-57 10:42:00 Test Item Value Reference Range Interpretation Comments PTT (test code = PTT) 36.4 s 22.9-35.8 [facility] [id number] 10:42:00 Test Item Value Reference Range Interpretation Comments Hgb A1C (test code = Hgb A1C) 10.5 [facility] CenterannCARDIAC [id number] 02:08:00 Test Item Value Reference Range Interpretation Comments CK MB Index (test 1.8 See_Comment [Automate d message] The code = CK MB Index) system w [facility] generated this result transmit rohit reference range : <=2.5. The reference range was not used to interpr et this result as reji l/abnormal. [facility] CenterannCARDIAC [id number] 02:08:00 Test Item Value Reference Range Interpretation Comments CK MB (test code = CK MB) 2.9 0.5-3.6 [facility] CenterannCARDIAC [id number] 02:08:00 Test Item Value Reference Range Interpretation Comments Troponin-T (test code 0.061 See_Comment [Auto mated message] The = Troponin-T) system which g enerated this result transmit rohit reference range : <=0.100. The reference r leo was not used to interpr et this result as reji l/abnormal. [facility] TexasTerviu [id number] 02:08:00 Test Item Value Reference Range Interpretation Comments Total CK (test code = Total CK) 159 12-191 [facility] TexasTerv[facility] [id number] 02:08:00 Test Item Value Reference Range Interpretation Comments Troponin-I (test code no gt See_Comment [Auto mated message] The = Troponin-I) system which g enerated this result transmit rohit reference range : <=0.40. The reference r leo was not used to interpr et this result as reji l/abnormal. [facility] [employer] [id number] 02:08:00 Test Item Value Reference Range Interpretation Comments Bili Total (test code = Bili Total) 0.2 0.2-1.3 [facility]GH[facility] [id number] 02:08:00 Test Item Value Reference Range Interpretation Comments Bili Direct (test code 0.1 See_Comment [Aut omated message] The = Bili Direct) system which generated this result tra nsmitted reference range : <=0.3. The reference r leo was not used to int erpret this result as reji l/abnormal. [facility]Inner[facility] [id number] 02:08:00 Test Item Value Reference Range Interpretation Comments Bili Indirect (test 0.1 See_Comment [Automa rohit message] The code = Bili Indirect) system which generated this result tra nsmitted reference range : <=1.0. The reference r leo was not used to int erpret this result as normal/abnormal . [facility] [employer] [id number] 02:08:00 Test Item Value Reference Range Interpretation Comments Total Protein (test code = Total 5.7 6.4-8.4 Protein) [facility] [id number] 02:08:00 Test Item Value Reference Range Interpretation Comments A/G Ratio (test code = A/G Ratio) 0.5 0.7-1.6 [facility] [id number] 02:08:00 Test Item Value Reference Range Interpretation Comments Albumin Lvl (test code = Albumin Lvl) 1.8 3.5-5.0 [facility] [id number] 02:08:00 Test Item Value Reference Range Interpretation Comments Globulin (test code = Globulin) 3.9 2.7-4.2 [facility] [employer] [id number] 02:08:00 Test Item Value Reference Range Interpretation Comments Alk Phos (test code = Alk Phos) 99 39-136 [facility] [employer] [id number] 02:08:00 Test Item Value Reference Range Interpretation Comments AST (test code = AST) 21 See_Comment [Auto mated message] The system which ge nerated this result transmit rohit reference range : <=37. The reference range was not used to interpr et this result as reji l/abnormal. [facility] [employer] [id number] 02:08:00 Test Item Value Reference Range Interpretation Comments ALT (test code = ALT) 17 See_Comment [Auto mated message] The system which ge nerated this result transmit rohit reference range : <=65. The reference range was not used to interpr et this result as reji l/abnormal. [facility] [employer] [id number] 02:08:00 Test Item Value Reference Range Interpretation Comments UDS Note (test code = See Note *NA*(06/10/16 UDS Note) 8:08 PM) [facility] [employer] [id number] 02:08:00 Test Item Value Reference Range Interpretation Comments U Propoxyph Scr (test Negative *NA*(06/10/16 code = U Propoxyph Scr) 8:08 PM) [facility] [employer] [id number] 02:08:00 Test Item Value Reference Range Interpretation Comments U Opiate Scr (test Negative *NA*(06/10/16 code = U Opiate Scr) 8:08 PM) [facility] [employer] [id number] 02:08:00 Test Item Value Reference Range Interpretation Comments U Methadone Scr (test Negative *NA*(06/10/16 code = U Methadone Scr) 8:08 PM) [facility] [employer] [id number] 02:08:00 Test Item Value Reference Range Interpretation Comments U Phencyc Scr (test Negative *NA*(06/10/16 code = U Phencyc Scr) 8:08 PM) [facility] [employer] [id number] 02:08:00 Test Item Value Reference Range Interpretation Comments U Cannab Scr (test Negative *NA*(06/10/16 code = U Cannab Scr) 8:08 PM) [facility] [id number] 02:08:00 Test Item Value Reference Range Interpretation Comments U Amph Scr (test code Negative *NA*(06/10/16 = U Amph Scr) 8:08 PM) [facility] [id number] 02:08:00 Test Item Value Reference Range Interpretation Comments U Kelly Scr (test code Negative *NA*(06/10/16 = U Kelly Scr) 8:08 PM) [facility] [id number] 02:08:00 Test Item Value Reference Range Interpretation Comments U Benzodia Scr (test Negative *NA*(06/10/16 code = U Benzodia Scr) 8:08 PM) [facility] [id number] 02:08:00 Test Item Value Reference Range Interpretation Comments U Cocaine Scr (test Negative *NA*(06/10/16 code = U Cocaine Scr) 8:08 PM) [facility] [id number] 02:08:00 Test Item Value Reference Range Interpretation Comments LDL (Calculated) (test code = LDL 75 (Calculated)) [facility] [id number] 02:08:00 Test Item Value Reference Range Interpretation Comments VLDL (test code = VLDL) 27 [facility] [id number] 02:08:00 Test Item Value Reference Range Interpretation Comments Chol (test code = Chol) 133 [facility] [id number] 02:08:00 Test Item Value Reference Range Interpretation Comments Trig (test code = Trig) 133 [facility] [id number] 02:08:00 Test Item Value Reference Range Interpretation Comments CHD Risk (test code = CHD Risk) 4.29 3.90-5.80 [facility] [id number] 02:08:00 Test Item Value Reference Range Interpretation Comments HDL (test code = HDL) 31 [facility] [id number] 02:08:00 Test Item Value Reference Range Interpretation Comments UA Urobilinogen (test code = UA <=1.0 mg/dL 0.1-1.0 Urobilinogen) [facility] [id number] 02:08:00 Test Item Value Reference Range Interpretation Comments UA Ketones (test code = UA Negative mg/dL Ketones) [facility] [id number] 02:08:00 Test Item Value Reference Range Interpretation Comments UA Glucose (test code = UA Glucose) 300 mg/dL [facility] AND [id number] 02:08:00 Test Item Value Reference Range Interpretation Comments UA Protein (test code = UA >=300 mg/dL Protein) [facility] AND [id number] 02:08:00 Test Item Value Reference Range Interpretation Comments UA pH (test code = UA pH) 6.0 5.0-8.0 [facility] AND [id number] 02:08:00 Test Item Value Reference Range Interpretation Comments UA Nitrite (test code Negative (06/10/16 8:08 = UA Nitrite) PM) [facility] AND [id number] 02:08:00 Test Item Value Reference Range Interpretation Comments UA Blood (test code = Trace *ABN*(06/10/16 UA Blood) 8:08 PM) [facility] AND [id number] 02:08:00 Test Item Value Reference Range Interpretation Comments UA Bili (test code = Negative *NA*(06/10/16 UA Bili) 8:08 PM) [facility] AND [id number] 02:08:00 Test Item Value Reference Range Interpretation Comments UA Mucus (test code = UA Mucus) Few /LPF [facility] AND [id number] 02:08:00 Test Item Value Reference Range Interpretation Comments UA RBC (test code = 4 See_Comment [Automa rohit message] The UA RBC) system which ge nerated this result transmit rohit reference range : <=2. The reference range was not used to interpr et this result as reji l/abnormal. [facility] AND [id number] 02:08:00 Test Item Value Reference Range Interpretation Comments UA Sq Epi (test code = UA Sq Epi) Few /LPF [facility] AND [id number] 02:08:00 Test Item Value Reference Range Interpretation Comments UA WBC (test code = 5 See_Comment [Automa rohit message] The UA WBC) system which ge nerated this result transmit rohit reference range : <=5. The reference range was not used to interpr et this result as reji l/abnormal. [facility] AND [id number] 02:08:00 Test Item Value Reference Range Interpretation Comments UA Leuk Est (test code Small *ABN*(06/10/16 = UA Leuk Est) 8:08 PM) [facility] [id number] 02:08:00 Test Item Value Reference Range Interpretation Comments UA Hyal Cast (test 1 See_Comment [Automat ed message] The code = UA Hyal Cast) system which generated this result transmit rohit reference range : <=2. The reference range was not used to interpr et this result as reji l/abnormal. [facility] [id number] 02:08:00 Test Item Value Reference Range Interpretation Comments UA Spec Grav (test code = UA Spec Grav) 1.009 [facility] [id number] 02:08:00 Test Item Value Reference Range Interpretation Comments UA Color (test code = Yellow *NA*(06/10/16 UA Color) 8:08 PM) [facility] [id number] 02:08:00 Test Item Value Reference Range Interpretation Comments UA Turbidity (test code = Clear (06/10/16 8:08 UA Turbidity) PM) [facility] [id number] 02:08:00 Test Item Value Reference Range Interpretation Comments U Preg (test code = U Negative (06/10/16 8:08 Preg) PM) [facility] [id number] 02:08:00 Test Item Value Reference Range Interpretation Comments U Protein (test code = U Protein) 375.4 [facility] [id number] 02:08:00 Test Item Value Reference Range Interpretation Comments U Prot/Creat (test code = U Prot/Creat) 5.4 [facility] [id number] 02:08:00 Test Item Value Reference Range Interpretation Comments U Creatinine (test code = U Creatinine) 69.80 [facility] [id number] 02:08:00 Test Item Value Reference Range Interpretation Comments CK MB Index (test 1.8 See_Comment [Automate d message] The code = CK MB Index) system w [facility] generated this result transmit rohit reference range : <=2.5. The reference range was not used to interpr et this result as reji l/abnormal. [facility] [id number] 02:08:00 Test Item Value Reference Range Interpretation Comments CK MB (test code = CK MB) 2.9 0.5-3.6 [facility]The [employer] website [id number] 02:08:00 Test Item Value Reference Range Interpretation Comments Troponin-T (test code 0.061 See_Comment [Auto mated message] The = Troponin-T) system which g enerated this result transmit rohit reference range : <=0.100. The reference r leo was not used to interpr et this result as reji l/abnormal. [facility] [employer]2016-12-22 02:08:00 Test Item Value Reference Range Interpretation Comments Total CK (test code = Total CK) 159 12-191 [facility] [employer]2016-12-22 02:08:00 Test Item Value Reference Range Interpretation Comments Troponin-I (test code no gt See_Comment [Auto mated message] The = Troponin-I) system which g enerated this result transmit rohit reference range : <=0.40. The reference r leo was not used to interpr et this result as reji l/abnormal. [facility] [place]2016-12-22 02:08:00 Test Item Value Reference Range Interpretation Comments Bili Total (test code = Bili Total) 0.2 0.2-1.3 [facility] [place]2016-12-22 02:08:00 Test Item Value Reference Range Interpretation Comments Bili Direct (test code 0.1 See_Comment [Aut omated message] The = Bili Direct) system which generated this result tra nsmitted reference range : <=0.3. The reference r leo was not used to int erpret this result as reji l/abnormal. [facility] [place]2016-12-22 02:08:00 Test Item Value Reference Range Interpretation Comments Bili Indirect (test 0.1 See_Comment [Automa rohit message] The code = Bili Indirect) system which generated this result tra nsmitted reference range : <=1.0. The reference r leo was not used to int erpret this result as normal/abnormal . [facility] [place]2016-12-22 02:08:00 Test Item Value Reference Range Interpretation Comments Total Protein (test code = Total 5.7 6.4-8.4 Protein) [facility] [id number] 02:08:00 Test Item Value Reference Range Interpretation Comments A/G Ratio (test code = A/G Ratio) 0.5 0.7-1.6 [facility] [id number] 02:08:00 Test Item Value Reference Range Interpretation Comments Albumin Lvl (test code = Albumin Lvl) 1.8 3.5-5.0 [facility] [id number] 02:08:00 Test Item Value Reference Range Interpretation Comments Globulin (test code = Globulin) 3.9 2.7-4.2 [facility] [id number] 02:08:00 Test Item Value Reference Range Interpretation Comments Alk Phos (test code = Alk Phos) 99 39-136 [facility] [id number] 02:08:00 Test Item Value Reference Range Interpretation Comments AST (test code = AST) 21 See_Comment [Auto mated message] The system which ge nerated this result transmit rohit reference range : <=37. The reference range was not used to interpr et this result as reji l/abnormal. [facility] [employer] [id number] 02:08:00 Test Item Value Reference Range Interpretation Comments ALT (test code = ALT) 17 See_Comment [Auto mated message] The system which ge nerated this result transmit rohit reference range : <=65. The reference range was not used to interpr et this result as reji l/abnormal. [facility] [id number] 02:08:00 Test Item Value Reference Range Interpretation Comments UDS Note (test code = See Note *NA*(06/10/16 UDS Note) 8:08 PM) [facility] [id number] 02:08:00 Test Item Value Reference Range Interpretation Comments U Propoxyph Scr (test Negative *NA*(06/10/16 code = U Propoxyph Scr) 8:08 PM) [facility] [id number] 02:08:00 Test Item Value Reference Range Interpretation Comments U Opiate Scr (test Negative *NA*(06/10/16 code = U Opiate Scr) 8:08 PM) [facility] [id number] 02:08:00 Test Item Value Reference Range Interpretation Comments U Methadone Scr (test Negative *NA*(06/10/16 code = U Methadone Scr) 8:08 PM) [facility] [id number] 02:08:00 Test Item Value Reference Range Interpretation Comments U Phencyc Scr (test Negative *NA*(06/10/16 code = U Phencyc Scr) 8:08 PM) [facility] [id number] 02:08:00 Test Item Value Reference Range Interpretation Comments U Cannab Scr (test Negative *NA*(06/10/16 code = U Cannab Scr) 8:08 PM) [facility] [id number] 02:08:00 Test Item Value Reference Range Interpretation Comments U Amph Scr (test code Negative *NA*(06/10/16 = U Amph Scr) 8:08 PM) [facility] [id number] 02:08:00 Test Item Value Reference Range Interpretation Comments U Kelly Scr (test code Negative *NA*(06/10/16 = U Kelly Scr) 8:08 PM) [facility] [id number] 02:08:00 Test Item Value Reference Range Interpretation Comments U Benzodia Scr (test Negative *NA*(06/10/16 code = U Benzodia Scr) 8:08 PM) [facility] [id number] 02:08:00 Test Item Value Reference Range Interpretation Comments U Cocaine Scr (test Negative *NA*(06/10/16 code = U Cocaine Scr) 8:08 PM) [facility] [id number] 02:08:00 Test Item Value Reference Range Interpretation Comments LDL (Calculated) (test code = LDL 75 (Calculated)) [facility] [id number] 02:08:00 Test Item Value Reference Range Interpretation Comments VLDL (test code = VLDL) 27 [facility] [id number] 02:08:00 Test Item Value Reference Range Interpretation Comments Chol (test code = Chol) 133 [facility] [id number] 02:08:00 Test Item Value Reference Range Interpretation Comments Trig (test code = Trig) 133 [facility] [id number] 02:08:00 Test Item Value Reference Range Interpretation Comments CHD Risk (test code = CHD Risk) 4.29 3.90-5.80 [facility] [id number] 02:08:00 Test Item Value Reference Range Interpretation Comments HDL (test code = HDL) 31 [facility] AND [id number] 02:08:00 Test Item Value Reference Range Interpretation Comments UA Urobilinogen (test code = UA <=1.0 mg/dL 0.1-1.0 Urobilinogen) [facility] AND [id number] 02:08:00 Test Item Value Reference Range Interpretation Comments UA Ketones (test code = UA Negative mg/dL Ketones) [facility] AND [id number] 02:08:00 Test Item Value Reference Range Interpretation Comments UA Glucose (test code = UA Glucose) 300 mg/dL [facility] AND [id number] 02:08:00 Test Item Value Reference Range Interpretation Comments UA Protein (test code = UA >=300 mg/dL Protein) [facility] AND [id number] 02:08:00 Test Item Value Reference Range Interpretation Comments UA pH (test code = UA pH) 6.0 5.0-8.0 [facility] AND [id number] 02:08:00 Test Item Value Reference Range Interpretation Comments UA Nitrite (test code Negative (06/10/16 8:08 = UA Nitrite) PM) [facility] AND [id number] 02:08:00 Test Item Value Reference Range Interpretation Comments UA Blood (test code = Trace *ABN*(06/10/16 UA Blood) 8:08 PM) [facility] AND [id number] 02:08:00 Test Item Value Reference Range Interpretation Comments UA Bili (test code = Negative *NA*(06/10/16 UA Bili) 8:08 PM) [facility] AND [id number] 02:08:00 Test Item Value Reference Range Interpretation Comments UA Mucus (test code = UA Mucus) Few /LPF [facility] AND [id number] 02:08:00 Test Item Value Reference Range Interpretation Comments UA RBC (test code = 4 See_Comment [Automa rohit message] The UA RBC) system which ge nerated this result transmit rohit reference range : <=2. The reference range was not used to interpr et this result as reji l/abnormal. [facility] AND [id number] 02:08:00 Test Item Value Reference Range Interpretation Comments UA Sq Epi (test code = UA Sq Epi) Few /LPF [facility] AND [id number] 02:08:00 Test Item Value Reference Range Interpretation Comments UA WBC (test code = 5 See_Comment [Automa rohit message] The UA WBC) system which ge nerated this result transmit rohit reference range : <=5. The reference range was not used to interpr et this result as reji l/abnormal. [facility] AND [id number] 02:08:00 Test Item Value Reference Range Interpretation Comments UA Leuk Est (test code Small *ABN*(06/10/16 = UA Leuk Est) 8:08 PM) [facility] AND [id number] 02:08:00 Test Item Value Reference Range Interpretation Comments UA Hyal Cast (test 1 See_Comment [Automat ed message] The code = UA Hyal Cast) system which generated this result transmit rohit reference range : <=2. The reference range was not used to interpr et this result as reji l/abnormal. [facility] AND [id number] 02:08:00 Test Item Value Reference Range Interpretation Comments UA Spec Grav (test code = UA Spec Grav) 1.009 [facility] AND [id number] 02:08:00 Test Item Value Reference Range Interpretation Comments UA Color (test code = Yellow *NA*(06/10/16 UA Color) 8:08 PM) [facility] AND [id number] 02:08:00 Test Item Value Reference Range Interpretation Comments UA Turbidity (test code = Clear (06/10/16 8:08 UA Turbidity) PM) [facility] [id number] 02:08:00 Test Item Value Reference Range Interpretation Comments U Preg (test code = U Negative (06/10/16 8:08 Preg) PM) [facility] [id number] 02:08:00 Test Item Value Reference Range Interpretation Comments U Protein (test code = U Protein) 375.4 [facility] [id number] 02:08:00 Test Item Value Reference Range Interpretation Comments U Prot/Creat (test code = U Prot/Creat) 5.4 [facility] AgradisannURINE [id number] 02:08:00 Test Item Value Reference Range Interpretation Comments U Creatinine (test code = U Creatinine) 69.80 [facility] [id number] 02:08:00 Test Item Value Reference Range Interpretation Comments CK MB Index (test 1.8 See_Comment [Automate d message] The code = CK MB Index) system w [facility] generated this result transmit rohit reference range : <=2.5. The reference range was not used to interpr et this result as reji l/abnormal. [facility] [employer]AC [id number] 02:08:00 Test Item Value Reference Range Interpretation Comments CK MB (test code = CK MB) 2.9 0.5-3.6 [facility] AgradisannCARDIAC [id number] 02:08:00 Test Item Value Reference Range Interpretation Comments Troponin-T (test code 0.061 See_Comment [Auto mated message] The = Troponin-T) system which g enerated this result transmit rohit reference range : <=0.100. The reference r leo was not used to interpr et this result as reji l/abnormal. [facility] [employer] [id number] 02:08:00 Test Item Value Reference Range Interpretation Comments Total CK (test code = Total CK) 159 12-191 [facility] AgradisannCARGame NationAC [id number] 02:08:00 Test Item Value Reference Range Interpretation Comments Troponin-I (test code no gt See_Comment [Auto mated message] The = Troponin-I) system which g enerated this result transmit rohit reference range : <=0.40. The reference r leo was not used to interpr et this result as reji l/abnormal. [facility] [id number] 02:08:00 Test Item Value Reference Range Interpretation Comments Bili Total (test code = Bili Total) 0.2 0.2-1.3 [facility] [employer] [id number] 02:08:00 Test Item Value Reference Range Interpretation Comments Bili Direct (test code 0.1 See_Comment [Aut omated message] The = Bili Direct) system which generated this result tra nsmitted reference range : <=0.3. The reference r leo was not used to int erpret this result as reji l/abnormal. [facility] [place]2016-12-22 02:08:00 Test Item Value Reference Range Interpretation Comments Bili Indirect (test 0.1 See_Comment [Automa rohit message] The code = Bili Indirect) system which generated this result tra nsmitted reference range : <=1.0. The reference r leo was not used to int erpret this result as normal/abnormal . [facility] [place]2016-12-22 02:08:00 Test Item Value Reference Range Interpretation Comments Total Protein (test code = Total 5.7 6.4-8.4 Protein) [facility] [place]2016-12-22 02:08:00 Test Item Value Reference Range Interpretation Comments A/G Ratio (test code = A/G Ratio) 0.5 0.7-1.6 [facility] [place]2016-12-22 02:08:00 Test Item Value Reference Range Interpretation Comments Albumin Lvl (test code = Albumin Lvl) 1.8 3.5-5.0 [facility] [place]2016-12-22 02:08:00 Test Item Value Reference Range Interpretation Comments Globulin (test code = Globulin) 3.9 2.7-4.2 [facility] [place]2016-12-22 02:08:00 Test Item Value Reference Range Interpretation Comments Alk Phos (test code = Alk Phos) 99 39-136 [facility] [employer] [id number] 02:08:00 Test Item Value Reference Range Interpretation Comments AST (test code = AST) 21 See_Comment [Auto mated message] The system which ge nerated this result transmit rohit reference range : <=37. The reference range was not used to interpr et this result as reji l/abnormal. [employer]2016-12-22 02:08:00 Test Item Value Reference Range Interpretation Comments ALT (test code = ALT) 17 See_Comment [Auto mated message] The system which ge nerated this result transmit rohit reference range : <=65. The reference range was not used to interpr et this result as reji l/abnormal. [employer]2016-12-22 02:08:00 Test Item Value Reference Range Interpretation Comments UDS Note (test code = See Note *NA*(06/10/16 UDS Note) 8:08 PM) [facility] [id number] 02:08:00 Test Item Value Reference Range Interpretation Comments U Propoxyph Scr (test Negative *NA*(06/10/16 code = U Propoxyph Scr) 8:08 PM) [facility] [id number] 02:08:00 Test Item Value Reference Range Interpretation Comments U Opiate Scr (test Negative *NA*(06/10/16 code = U Opiate Scr) 8:08 PM) [facility] [id number] 02:08:00 Test Item Value Reference Range Interpretation Comments U Methadone Scr (test Negative *NA*(06/10/16 code = U Methadone Scr) 8:08 PM) [facility] [id number] 02:08:00 Test Item Value Reference Range Interpretation Comments U Phencyc Scr (test Negative *NA*(06/10/16 code = U Phencyc Scr) 8:08 PM) [facility] [id number] 02:08:00 Test Item Value Reference Range Interpretation Comments U Cannab Scr (test Negative *NA*(06/10/16 code = U Cannab Scr) 8:08 PM) [facility] [id number] 02:08:00 Test Item Value Reference Range Interpretation Comments U Amph Scr (test code Negative *NA*(06/10/16 = U Amph Scr) 8:08 PM) [facility] [id number] 02:08:00 Test Item Value Reference Range Interpretation Comments U Kelly Scr (test code Negative *NA*(06/10/16 = U Kelly Scr) 8:08 PM) [facility] [id number] 02:08:00 Test Item Value Reference Range Interpretation Comments U Benzodia Scr (test Negative *NA*(06/10/16 code = U Benzodia Scr) 8:08 PM) [facility] [id number] 02:08:00 Test Item Value Reference Range Interpretation Comments U Cocaine Scr (test Negative *NA*(06/10/16 code = U Cocaine Scr) 8:08 PM) [facility] [id number] 02:08:00 Test Item Value Reference Range Interpretation Comments LDL (Calculated) (test code = LDL 75 (Calculated)) [facility] [id number] 02:08:00 Test Item Value Reference Range Interpretation Comments VLDL (test code = VLDL) 27 [id number] 02:08:00 Test Item Value Reference Range Interpretation Comments Chol (test code = Chol) 133 [facility] [id number] 02:08:00 Test Item Value Reference Range Interpretation Comments Trig (test code = Trig) 133 [facility] [id number] 02:08:00 Test Item Value Reference Range Interpretation Comments CHD Risk (test code = CHD Risk) 4.29 3.90-5.80 [facility] [id number] 02:08:00 Test Item Value Reference Range Interpretation Comments HDL (test code = HDL) 31 [facility] AND [id number] 02:08:00 Test Item Value Reference Range Interpretation Comments UA Urobilinogen (test code = UA <=1.0 mg/dL 0.1-1.0 Urobilinogen) [facility] AND [id number] 02:08:00 Test Item Value Reference Range Interpretation Comments UA Ketones (test code = UA Negative mg/dL Ketones) [facility] AND [id number] 02:08:00 Test Item Value Reference Range Interpretation Comments UA Glucose (test code = UA Glucose) 300 mg/dL [facility] AND [id number] 02:08:00 Test Item Value Reference Range Interpretation Comments UA Protein (test code = UA >=300 mg/dL Protein) [facility] AND [id number] 02:08:00 Test Item Value Reference Range Interpretation Comments UA pH (test code = UA pH) 6.0 5.0-8.0 [facility] AND [id number] 02:08:00 Test Item Value Reference Range Interpretation Comments UA Nitrite (test code Negative (06/10/16 8:08 = UA Nitrite) PM) [facility] AND [id number] 02:08:00 Test Item Value Reference Range Interpretation Comments UA Blood (test code = Trace *ABN*(06/10/16 UA Blood) 8:08 PM) [facility] AND [id number] 02:08:00 Test Item Value Reference Range Interpretation Comments UA Bili (test code = Negative *NA*(06/10/16 UA Bili) 8:08 PM) [facility] BossmanannURINE AND [id number] 02:08:00 Test Item Value Reference Range Interpretation Comments UA Mucus (test code = UA Mucus) Few /LPF [facility] [id number] 02:08:00 Test Item Value Reference Range Interpretation Comments UA RBC (test code = 4 See_Comment [Automa rohit message] The UA RBC) system which ge nerated this result transmit rohit reference range : <=2. The reference range was not used to interpr et this result as reji l/abnormal. [facility] BossmanannURINE AND [id number] 02:08:00 Test Item Value Reference Range Interpretation Comments UA Sq Epi (test code = UA Sq Epi) Few /LPF [facility] AND [id number] 02:08:00 Test Item Value Reference Range Interpretation Comments UA WBC (test code = 5 See_Comment [Automa rohit message] The UA WBC) system which ge nerated this result transmit rohit reference range : <=5. The reference range was not used to interpr et this result as reji l/abnormal. [facility] VinURINE AND [id number] 02:08:00 Test Item Value Reference Range Interpretation Comments UA Leuk Est (test code Small *ABN*(06/10/16 = UA Leuk Est) 8:08 PM) [facility] [id number] 02:08:00 Test Item Value Reference Range Interpretation Comments UA Hyal Cast (test 1 See_Comment [Automat ed message] The code = UA Hyal Cast) system which generated this result transmit rohit reference range : <=2. The reference range was not used to interpr et this result as reji l/abnormal. [facility] BossmanannURINE AND [id number] 02:08:00 Test Item Value Reference Range Interpretation Comments UA Spec Grav (test code = UA Spec Grav) 1.009 [facility] BossmanannURINE AND [id number] 02:08:00 Test Item Value Reference Range Interpretation Comments UA Color (test code = Yellow *NA*(06/10/16 UA Color) 8:08 PM) [facility] BossmanannURINE AND [id number] 02:08:00 Test Item Value Reference Range Interpretation Comments UA Turbidity (test code = Clear (06/10/16 8:08 UA Turbidity) PM) [facility] [id number] 02:08:00 Test Item Value Reference Range Interpretation Comments U Preg (test code = U Negative (06/10/16 8:08 Preg) PM) [facility] [id number] 02:08:00 Test Item Value Reference Range Interpretation Comments U Protein (test code = U Protein) 375.4 [facility] [id number] 02:08:00 Test Item Value Reference Range Interpretation Comments U Prot/Creat (test code = U Prot/Creat) 5.4 [facility] [id number] 02:08:00 Test Item Value Reference Range Interpretation Comments U Creatinine (test code = U Creatinine) 69.80 [facility] [id number] 02:08:00 Test Item Value Reference Range Interpretation Comments U Cannab Scr (test Negative *NA*(06/10/16 code = U Cannab Scr) 8:08 PM) [facility] [id number] 02:08:00 Test Item Value Reference Range Interpretation Comments U Amph Scr (test code Negative *NA*(06/10/16 = U Amph Scr) 8:08 PM) [facility] [id number] 02:08:00 Test Item Value Reference Range Interpretation Comments U Kelly Scr (test code Negative *NA*(06/10/16 = U Kelly Scr) 8:08 PM) [facility] [id number] 02:08:00 Test Item Value Reference Range Interpretation Comments U Benzodia Scr (test Negative *NA*(06/10/16 code = U Benzodia Scr) 8:08 PM) [facility] [id number] 02:08:00 Test Item Value Reference Range Interpretation Comments U Cocaine Scr (test Negative *NA*(06/10/16 code = U Cocaine Scr) 8:08 PM) [facility] [id number] 02:08:00 Test Item Value Reference Range Interpretation Comments LDL (Calculated) (test code = LDL 75 (Calculated)) [facility] [id number] 02:08:00 Test Item Value Reference Range Interpretation Comments VLDL (test code = VLDL) 27 [facility] [id number] 02:08:00 Test Item Value Reference Range Interpretation Comments Chol (test code = Chol) 133 [facility] [id number] 02:08:00 Test Item Value Reference Range Interpretation Comments Trig (test code = Trig) 133 [facility] [id number] 02:08:00 Test Item Value Reference Range Interpretation Comments CHD Risk (test code = CHD Risk) 4.29 3.90-5.80 [facility] [id number] 02:08:00 Test Item Value Reference Range Interpretation Comments HDL (test code = HDL) 31 [facility] AND [id number] 02:08:00 Test Item Value Reference Range Interpretation Comments UA Urobilinogen (test code = UA <=1.0 mg/dL 0.1-1.0 Urobilinogen) [facility] AND [id number] 02:08:00 Test Item Value Reference Range Interpretation Comments UA Ketones (test code = UA Negative mg/dL Ketones) [facility] AND [id number] 02:08:00 Test Item Value Reference Range Interpretation Comments UA Glucose (test code = UA Glucose) 300 mg/dL [facility] AND [id number] 02:08:00 Test Item Value Reference Range Interpretation Comments UA Protein (test code = UA >=300 mg/dL Protein) [facility] AND [id number] 02:08:00 Test Item Value Reference Range Interpretation Comments UA pH (test code = UA pH) 6.0 5.0-8.0 [facility] AND [id number] 02:08:00 Test Item Value Reference Range Interpretation Comments UA Nitrite (test code Negative (06/10/16 8:08 = UA Nitrite) PM) [facility] AND [id number] 02:08:00 Test Item Value Reference Range Interpretation Comments UA Blood (test code = Trace *ABN*(06/10/16 UA Blood) 8:08 PM) [facility] AND [id number] 02:08:00 Test Item Value Reference Range Interpretation Comments UA Bili (test code = Negative *NA*(06/10/16 UA Bili) 8:08 PM) [facility] AND [id number] 02:08:00 Test Item Value Reference Range Interpretation Comments UA Mucus (test code = UA Mucus) Few /LPF [facility] AND [id number] 02:08:00 Test Item Value Reference Range Interpretation Comments UA RBC (test code = 4 See_Comment [Automa rohit message] The UA RBC) system which ge nerated this result transmit rohit reference range : <=2. The reference range was not used to interpr et this result as reji l/abnormal. [facility] AND [id number] 02:08:00 Test Item Value Reference Range Interpretation Comments UA Sq Epi (test code = UA Sq Epi) Few /LPF [facility] [id number] 02:08:00 Test Item Value Reference Range Interpretation Comments UA WBC (test code = 5 See_Comment [Automa rohit message] The UA WBC) system which ge nerated this result transmit rohit reference range : <=5. The reference range was not used to interpr et this result as reji l/abnormal. [facility] AND [id number] 02:08:00 Test Item Value Reference Range Interpretation Comments UA Leuk Est (test code Small *ABN*(06/10/16 = UA Leuk Est) 8:08 PM) [facility] AND [id number] 02:08:00 Test Item Value Reference Range Interpretation Comments UA Hyal Cast (test 1 See_Comment [Automat ed message] The code = UA Hyal Cast) system which generated this result transmit rohit reference range : <=2. The reference range was not used to interpr et this result as reji l/abnormal. [facility] AND [id number] 02:08:00 Test Item Value Reference Range Interpretation Comments UA Spec Grav (test code = UA Spec Grav) 1.009 [facility] AND [id number] 02:08:00 Test Item Value Reference Range Interpretation Comments UA Color (test code = Yellow *NA*(06/10/16 UA Color) 8:08 PM) [facility] AND [id number] 02:08:00 Test Item Value Reference Range Interpretation Comments UA Turbidity (test code = Clear (06/10/16 8:08 UA Turbidity) PM) [facility] [id number] 02:08:00 Test Item Value Reference Range Interpretation Comments U Preg (test code = U Negative (06/10/16 8:08 Preg) PM) [facility] [id number] 02:08:00 Test Item Value Reference Range Interpretation Comments U Protein (test code = U Protein) 375.4 [facility] [id number] 02:08:00 Test Item Value Reference Range Interpretation Comments U Prot/Creat (test code = U Prot/Creat) 5.4 [facility] [id number] 02:08:00 Test Item Value Reference Range Interpretation Comments U Creatinine (test code = U Creatinine) 69.80 [facility] [id number] 02:08:00 Test Item Value Reference Range Interpretation Comments CK MB Index (test 1.8 See_Comment [Automate d message] The code = CK MB Index) system w [facility] generated this result transmit rohit reference range : <=2.5. The reference range was not used to interpr et this result as reji l/abnormal. [facility] [employer]2016-12-22 02:08:00 Test Item Value Reference Range Interpretation Comments CK MB (test code = CK MB) 2.9 0.5-3.6 [facility] CenterAssertID2016-12-22 02:08:00 Test Item Value Reference Range Interpretation Comments Troponin-T (test code 0.061 See_Comment [Auto mated message] The = Troponin-T) system which g enerated this result transmit rohit reference range : <=0.100. The reference r leo was not used to interpr et this result as reji l/abnormal. [facility] [employer]2016-12-22 02:08:00 Test Item Value Reference Range Interpretation Comments Total CK (test code = Total CK) 159 12-191 [facility] 02:08:00 Test Item Value Reference Range Interpretation Comments Troponin-I (test code no gt See_Comment [Auto mated message] The = Troponin-I) system which g enerated this result transmit rohit reference range : <=0.40. The reference r leo was not used to interpr et this result as reji l/abnormal. P[facility] [id number] 02:08:00 Test Item Value Reference Range Interpretation Comments Bili Total (test code = Bili Total) 0.2 0.2-1.3 [place] 060166-12-22 02:08:00 Test Item Value Reference Range Interpretation Comments Bili Direct (test code 0.1 See_Comment [Aut omated message] The = Bili Direct) system which generated this result tra nsmitted reference range : <=0.3. The reference r leo was not used to int erpret this result as reji l/abnormal. [place] 060166-12-22 02:08:00 Test Item Value Reference Range Interpretation Comments Bili Indirect (test 0.1 See_Comment [Automa rohit message] The code = Bili Indirect) system which generated this result tra nsmitted reference range : <=1.0. The reference r leo was not used to int erpret this result as normal/abnormal . [place] 060166-12-22 02:08:00 Test Item Value Reference Range Interpretation Comments Total Protein (test code = Total 5.7 6.4-8.4 Protein) [place] 060166-12-22 02:08:00 Test Item Value Reference Range Interpretation Comments A/G Ratio (test code = A/G Ratio) 0.5 0.7-1.6 [address]12-22 02:08:00 Test Item Value Reference Range Interpretation Comments Albumin Lvl (test code = Albumin Lvl) 1.8 3.5-5.0 [place] 060166-12-22 02:08:00 Test Item Value Reference Range Interpretation Comments Globulin (test code = Globulin) 3.9 2.7-4.2 [place] 060166-12-22 02:08:00 Test Item Value Reference Range Interpretation Comments Alk Phos (test code = Alk Phos) 99 39-136 [place] 060166-12-22 02:08:00 Test Item Value Reference Range Interpretation Comments AST (test code = AST) 21 See_Comment [Auto mated message] The system which ge nerated this result transmit rohit reference range : <=37. The reference range was not used to interpr et this result as reji l/abnormal. [place] 060166-12-22 02:08:00 Test Item Value Reference Range Interpretation Comments ALT (test code = ALT) 17 See_Comment [Auto mated message] The system which ge nerated this result transmit rohit reference range : <=65. The reference range was not used to interpr et this result as reji l/abnormal. [facility] [id number] 02:08:00 Test Item Value Reference Range Interpretation Comments UDS Note (test code = See Note *NA*(06/10/16 UDS Note) 8:08 PM) [facility] [id number] 02:08:00 Test Item Value Reference Range Interpretation Comments U Propoxyph Scr (test Negative *NA*(06/10/16 code = U Propoxyph Scr) 8:08 PM) [facility] [id number] 02:08:00 Test Item Value Reference Range Interpretation Comments U Opiate Scr (test Negative *NA*(06/10/16 code = U Opiate Scr) 8:08 PM) [facility] [id number] 02:08:00 Test Item Value Reference Range Interpretation Comments U Methadone Scr (test Negative *NA*(06/10/16 code = U Methadone Scr) 8:08 PM) [facility] [id number] 02:08:00 Test Item Value Reference Range Interpretation Comments U Phencyc Scr (test Negative *NA*(06/10/16 code = U Phencyc Scr) 8:08 PM) [facility] [id number] 16:53:00 Test Item Value Reference Range Interpretation Comments BNP (test code = BNP) [address] [facility] AgradisannCARDIAC [id number] 16:53:00 Test Item Value Reference Range Interpretation Comments Troponin-I (test code no gt See_Comment [Auto mated message] The = Troponin-I) system which g enerated this result transmit rohit reference range : <=0.40. The reference r leo was not used to interpr et this result as reji l/abnormal. [facility] [id number] 16:53:00 Test Item Value Reference Range Interpretation Comments BNP (test code = BNP) [address]5 [facility] [id number] 16:53:00 Test Item Value Reference Range Interpretation Comments Troponin-I (test code no gt See_Comment [Auto mated message] The = Troponin-I) system which g enerated this result transmit rohit reference range : <=0.40. The reference r leo was not used to interpr et this result as reji l/abnormal. [facility] [id number] 16:53:00 Test Item Value Reference Range Interpretation Comments BNP (test code = BNP) [address] [facility]CAR[facility] NationAC [id number] 16:53:00 Test Item Value Reference Range Interpretation Comments Troponin-I (test code no gt See_Comment [Auto mated message] The = Troponin-I) system which g enerated this result transmit rohit reference range : <=0.40. The reference r leo was not used to interpr et this result as reji l/abnormal. [facility] CenterHuango.cnCARGame NationAC [id number] 16:53:00 Test Item Value Reference Range Interpretation Comments BNP (test code = BNP) 1135 [facility] CenterThe [employer] website [id number] 16:53:00 Test Item Value Reference Range Interpretation Comments Troponin-I (test code no gt See_Comment [Auto mated message] The = Troponin-I) system which g enerated this result transmit rohit reference range : <=0.40. The reference r leo was not used to interpr et this result as reji l/abnormal. [facility] [id number] 13:02:00 Test Item Value Reference Range Interpretation Comments Lactic Acid WB (test code = Lactic Acid 0.9 0.5-2.2 WB) [facility] [id number] 13:02:00 Test Item Value Reference Range Interpretation Comments Lactic Acid WB (test code = Lactic Acid 0.9 0.5-2.2 WB) [facility] [id number] 13:02:00 Test Item Value Reference Range Interpretation Comments Lactic Acid WB (test code = Lactic Acid 0.9 0.5-2.2 WB) [facility] [id number] 13:02:00 Test Item Value Reference Range Interpretation Comments Lactic Acid WB (test code = Lactic Acid 0.9 0.5-2.2 WB) [id number] 12:29:44 Test Item Value Reference Range Interpretation Comments Valproic Acid Lvl (test code = Valproic 10 50-100 Acid Lvl) [id number] 12:29:44 Test Item Value Reference Range Interpretation Comments Valproic Acid Lvl (test code = Valproic 10 50-100 Acid Lvl) [place] [id number] 12:29:44 Test Item Value Reference Range Interpretation Comments Valproic Acid Lvl (test code = Valproic 10 50-100 Acid Lvl) [place] [id number] 12:29:44 Test Item Value Reference Range Interpretation Comments Valproic Acid Lvl (test code = Valproic 10 50-100 Acid Lvl) [place] [id number] 11:21:27 Test Item Value Reference Range Interpretation Comments hCG Tot (test code = hCG Tot) 1 [place] [id number] 11:21:27 Test Item Value Reference Range Interpretation Comments hCG Tot (test code = hCG Tot) 1 [place] [id number] 11:21:27 Test Item Value Reference Range Interpretation Comments hCG Tot (test code = hCG Tot) 1 [place] [id number] 11:21:27 Test Item Value Reference Range Interpretation Comments hCG Tot (test code = hCG Tot) 1 [facility]2015-01-06 11:21:00 Test Item Value Reference Range Interpretation Comments Albumin Lvl (test code = Albumin Lvl) 3.2 3.5-5.0 [facility]2015-01-06 11:21:00 Test Item Value Reference Range Interpretation Comments Total Protein (test code = Total 6.6 6.4-8.4 Protein) [facility]2015-01-06 11:21:00 Test Item Value Reference Range Interpretation Comments Bili Total (test code = Bili Total) 0.6 0.2-1.3 [facility]2015-01-06 11:21:00 Test Item Value Reference Range Interpretation Comments Alk Phos (test code = Alk Phos) 59 39-136 [facility]2015-01-06 11:21:00 Test Item Value Reference Range Interpretation Comments AST (test code = AST) 11 See_Comment [Auto mated message] The system which ge nerated this result transmit rohit reference range : <=37. The reference range was not used to interpr et this result as reji l/abnormal. [facility]2015-01-06 11:21:00 Test Item Value Reference Range Interpretation Comments ALT (test code = ALT) 17 See_Comment [Auto mated message] The system which ge nerated this result transmit rohit reference range : <=65. The reference range was not used to interpr et this result as reji l/abnormal. [facility]2015-01-06 11:21:00 Test Item Value Reference Range Interpretation Comments eGFR (test code = eGFR) 99 [facility]2015-01-06 11:21:00 Test Item Value Reference Range Interpretation Comments Glucose Lvl (test code = Glucose Lvl) 314 70-99 [facility]2015-01-06 11:21:00 Test Item Value Reference Range Interpretation Comments Potassium Lvl (test code = Potassium 3.4 3.5-5.1 Lvl) [facility]2015-01-06 11:21:00 Test Item Value Reference Range Interpretation Comments BUN (test code = BUN) 11 7-22 [facility]2015-01-06 11:21:00 Test Item Value Reference Range Interpretation Comments Creatinine Lvl (test code = Creatinine 0.8 0.5-1.4 Lvl) [facility]2015-01-06 11:21:00 Test Item Value Reference Range Interpretation Comments Sodium Lvl (test code = Sodium Lvl) 134 135-145 [facility]2015-01-06 11:21:00 Test Item Value Reference Range Interpretation Comments Chloride Lvl (test code = Chloride Lvl) 94 95-109 [facility]2015-01-06 11:21:00 Test Item Value Reference Range Interpretation Comments Calcium Lvl (test code = Calcium Lvl) 9.1 8.5-10.5 [facility]2015-01-06 11:21:00 Test Item Value Reference Range Interpretation Comments CO2 (test code = CO2) 24 24-32 [facility]2015-01-06 11:21:00 Test Item Value Reference Range Interpretation Comments A/G Ratio (test code = A/G Ratio) 0.9 0.7-1.6 [facility]2015-01-06 11:21:00 Test Item Value Reference Range Interpretation Comments Globulin (test code = Globulin) 3.4 2.0-4.0 [facility]2015-01-06 11:21:00 Test Item Value Reference Range Interpretation Comments B/C Ratio (test code = B/C Ratio) 14 6-25 [facility]2015-01-06 11:21:00 Test Item Value Reference Range Interpretation Comments AGAP (test code = AGAP) 19.4 10.0-20.0 [facility]2015-01-06 11:21:00 Test Item Value Reference Range Interpretation Comments Lipase Lvl (test code = Lipase Lvl) 81 73-393 [facility] HospitalEtzgavlRAAWQZIUAI9802-53-56 11:21:00 Test Item Value Reference Range Interpretation Comments Large Plt (test code = Large Plt) Slight [facility] HospitalRyfasdoSNXPRWMKAF5150-02-50 11:21:00 Test Item Value Reference Range Interpretation Comments Basophils # (test code 0.0 See_Comment [Aut omated message] The = Basophils #) system which generated this result tra nsmitted reference range : <=0.2. The reference r leo was not used to int erpret this result as normal/abnormal . [facility] H[id number] 11:21:00 Test Item Value Reference Range Interpretation Comments Anisocyte (test code = 1+ *ABN*(06/26/14 5:21 Anisocyte) AM) [facility] Hospit[id number] 11:21:00 Test Item Value Reference Range Interpretation Comments Monocytes # (test code 0.6 See_Comment [Aut omated message] The = Monocytes #) system which generated this result tra nsmitted reference range : <=0.8. The reference r leo was not used to int erpret this result as normal/abnormal . [facility] HospitalLkvribxVWPLQZMXSD6682-97-65 11:21:00 Test Item Value Reference Range Interpretation Comments Eosinophils # (test code 0.1 See_Comment [A utomated message] The = Eosinophils #) system whic h generated this result tra nsmitted reference range : <=0.5. The reference r leo was not used to int erpret this result as normal/abnormal . [facility] HospitalPsevdezAFJTUGBIPC9897-40-04 11:21:00 Test Item Value Reference Range Interpretation Comments Lymphocytes # (test code = Lymphocytes 2.5 1.0-5.5 #) [place] [id number] 11:21:00 Test Item Value Reference Range Interpretation Comments Segs (test code = Segs) 63.3 45.0-75.0 [facility] HospitalBjdaiybSWXURKZRYU1239-17-13 11:21:00 Test Item Value Reference Range Interpretation Comments Segs-Bands # (test code = Segs-Bands #) 5.6 1.5-8.1 [facility] HospitalHbbbhjjPRIXURVRHV8078-35-09 11:21:00 Test Item Value Reference Range Interpretation Comments Basophils (test code = 0.0 See_Comment [Aut omated message] The Basophils) system which ge nerated this result tra nsmitted reference range : <=1.0. The reference r leo was not used to int erpret this result as normal/abnormal . [facility] HospitalSiajwomXZXBQSZCWY6302-17-59 11:21:00 Test Item Value Reference Range Interpretation Comments Eosinophils (test code = 0.9 See_Comment [A utomated message] The Eosinophils) system which ge nerated this result tra nsmitted reference range : <=4.0. The reference r leo was not used to int erpret this result as normal/abnormal . [facility] HospitalPkvixcrZXGCWDZUYO7381-55-20 11:21:00 Test Item Value Reference Range Interpretation Comments Monocytes (test code = Monocytes) 7.0 2.0-12.0 [facility] HospitalIliscmmPBRQAMXOSO6170-40-13 11:21:00 Test Item Value Reference Range Interpretation Comments Lymphocytes (test code = Lymphocytes) 28.8 20.0-40.0 [facility] HospitalTdlwvyoAJDPVDOCLT8469-43-28 11:21:00 Test Item Value Reference Range Interpretation Comments WBC (test code = WBC) 8.8 3.7-10.4 [facility] HospitalQccercmDXEVFXYAFT1362-47-18 11:21:00 Test Item Value Reference Range Interpretation Comments RBC (test code = RBC) 5.19 4.20-5.40 [facility] HospitalZiobecaJXBDHGUDFZ7995-58-53 11:21:00 Test Item Value Reference Range Interpretation Comments Hgb (test code = Hgb) 14.4 12.0-16.0 [facility] HospitalPrmksaxGLGTEBNGUU4587-65-05 11:21:00 Test Item Value Reference Range Interpretation Comments Hct (test code = Hct) 43.1 36.0-48.0 [facility] HospitalNfecbhnZMKBYNGCOJ4407-82-10 11:21:00 Test Item Value Reference Range Interpretation Comments MCV (test code = MCV) 83.1 80.0-98.0 [facility] HospitalPksdudjNVVXICGDPU9482-06-58 11:21:00 Test Item Value Reference Range Interpretation Comments MCH (test code = MCH) 27.8 pg 27.0-31.0 [facility] HospitalOxadfiwJQONMHQFDP0442-91-68 11:21:00 Test Item Value Reference Range Interpretation Comments RDW (test code = RDW) 13.1 11.5-14.5 [facility] HospitalYuultncDWPDIQXHTX8604-43-74 11:21:00 Test Item Value Reference Range Interpretation Comments MCHC (test code = MCHC) 33.5 32.0-36.0 [facility] HospitalRzidyicIMBCXPIBAY6109-67-58 11:21:00 Test Item Value Reference Range Interpretation Comments Platelet (test code = Platelet) 201 133-450 [facility] HospitalCcaaugaPIFKQBSAXZ5925-26-37 11:21:00 Test Item Value Reference Range Interpretation Comments MPV (test code = MPV) 10.4 7.4-10.4 [facility]2015-01-06 11:21:00 Test Item Value Reference Range Interpretation Comments Albumin Lvl (test code = Albumin Lvl) 3.2 3.5-5.0 [facility]2015-01-06 11:21:00 Test Item Value Reference Range Interpretation Comments Total Protein (test code = Total 6.6 6.4-8.4 Protein) [facility]2015-01-06 11:21:00 Test Item Value Reference Range Interpretation Comments Bili Total (test code = Bili Total) 0.6 0.2-1.3 [facility]2015-01-06 11:21:00 Test Item Value Reference Range Interpretation Comments Alk Phos (test code = Alk Phos) 59 39-136 [facility]2015-01-06 11:21:00 Test Item Value Reference Range Interpretation Comments AST (test code = AST) 11 See_Comment [Auto mated message] The system which ge nerated this result transmit rohit reference range : <=37. The reference range was not used to interpr et this result as reji l/abnormal. [facility]2015-01-06 11:21:00 Test Item Value Reference Range Interpretation Comments ALT (test code = ALT) 17 See_Comment [Auto mated message] The system which ge nerated this result transmit rohit reference range : <=65. The reference range was not used to interpr et this result as reji l/abnormal. [facility]2015-01-06 11:21:00 Test Item Value Reference Range Interpretation Comments eGFR (test code = eGFR) 99 [facility]2015-01-06 11:21:00 Test Item Value Reference Range Interpretation Comments Glucose Lvl (test code = Glucose Lvl) 314 70-99 [facility]2015-01-06 11:21:00 Test Item Value Reference Range Interpretation Comments Potassium Lvl (test code = Potassium 3.4 3.5-5.1 Lvl) [facility]2015-01-06 11:21:00 Test Item Value Reference Range Interpretation Comments BUN (test code = BUN) 11 7-22 [facility]2015-01-06 11:21:00 Test Item Value Reference Range Interpretation Comments Creatinine Lvl (test code = Creatinine 0.8 0.5-1.4 Lvl) [facility]2015-01-06 11:21:00 Test Item Value Reference Range Interpretation Comments Sodium Lvl (test code = Sodium Lvl) 134 135-145 [facility]2015-01-06 11:21:00 Test Item Value Reference Range Interpretation Comments Chloride Lvl (test code = Chloride Lvl) 94 95-109 [facility]2015-01-06 11:21:00 Test Item Value Reference Range Interpretation Comments Calcium Lvl (test code = Calcium Lvl) 9.1 8.5-10.5 [facility]2015-01-06 11:21:00 Test Item Value Reference Range Interpretation Comments CO2 (test code = CO2) 24 24-32 [facility]2015-01-06 11:21:00 Test Item Value Reference Range Interpretation Comments A/G Ratio (test code = A/G Ratio) 0.9 0.7-1.6 [facility]2015-01-06 11:21:00 Test Item Value Reference Range Interpretation Comments Globulin (test code = Globulin) 3.4 2.0-4.0 [facility]2015-01-06 11:21:00 Test Item Value Reference Range Interpretation Comments B/C Ratio (test code = B/C Ratio) 14 6-25 [facility]2015-01-06 11:21:00 Test Item Value Reference Range Interpretation Comments AGAP (test code = AGAP) 19.4 10.0-20.0 [facility]2015-01-06 11:21:00 Test Item Value Reference Range Interpretation Comments Lipase Lvl (test code = Lipase Lvl) 81 73-393 [facility] HospitalMnwcxubQLSDLYQTUB8262-12-12 11:21:00 Test Item Value Reference Range Interpretation Comments Large Plt (test code = Large Plt) Slight [facility] HospitalGvmsbveYDTMZEVBAB5323-02-87 11:21:00 Test Item Value Reference Range Interpretation Comments Basophils # (test code 0.0 See_Comment [Aut omated message] The = Basophils #) system which generated this result tra nsmitted reference range : <=0.2. The reference r leo was not used to int erpret this result as normal/abnormal . [facility] HospitalBiidztmYEFLWJTEFF8020-32-00 11:21:00 Test Item Value Reference Range Interpretation Comments Anisocyte (test code = 1+ *ABN*(06/26/14 5:21 Anisocyte) AM) [facility] HospitalFxjagigVKLPYDVLWZ6087-50-52 11:21:00 Test Item Value Reference Range Interpretation Comments Monocytes # (test code 0.6 See_Comment [Aut omated message] The = Monocytes #) system which generated this result tra nsmitted reference range : <=0.8. The reference r leo was not used to int erpret this result as normal/abnormal . [facility] HospitalQqgcgyeDLAMIABZIR4474-83-33 11:21:00 Test Item Value Reference Range Interpretation Comments Eosinophils # (test code 0.1 See_Comment [A utomated message] The = Eosinophils #) system whic h generated this result tra nsmitted reference range : <=0.5. The reference r leo was not used to int erpret this result as normal/abnormal . [facility] HospitalEmmjuunAYHLNXIFZF4934-46-38 11:21:00 Test Item Value Reference Range Interpretation Comments Lymphocytes # (test code = Lymphocytes 2.5 1.0-5.5 #) [facility] HospitalCmpgsbeWJZBSHIHLQ7232-46-92 11:21:00 Test Item Value Reference Range Interpretation Comments Segs (test code = Segs) 63.3 45.0-75.0 [facility] HospitalPlaykgqFGGEJCEPHH6213-20-51 11:21:00 Test Item Value Reference Range Interpretation Comments Segs-Bands # (test code = Segs-Bands #) 5.6 1.5-8.1 [facility] HospitalCjovilaIECGJCKVBQ4948-94-89 11:21:00 Test Item Value Reference Range Interpretation Comments Basophils (test code = 0.0 See_Comment [Aut omated message] The Basophils) system which ge nerated this result tra nsmitted reference range : <=1.0. The reference r leo was not used to int erpret this result as normal/abnormal . [facility] HospitalJknalexFTPQYXRJFU0487-41-46 11:21:00 Test Item Value Reference Range Interpretation Comments Eosinophils (test code = 0.9 See_Comment [A utomated message] The Eosinophils) system which ge nerated this result tra nsmitted reference range : <=4.0. The reference r leo was not used to int erpret this result as normal/abnormal . [facility] HospitalHzaovrfOEUQBFNBIP1335-24-54 11:21:00 Test Item Value Reference Range Interpretation Comments Monocytes (test code = Monocytes) 7.0 2.0-12.0 [facility] HospitalHcntkjtTJREURFAWC7990-06-97 11:21:00 Test Item Value Reference Range Interpretation Comments Lymphocytes (test code = Lymphocytes) 28.8 20.0-40.0 [facility] HospitalZuuwfhvBHRAZZQXMG8996-82-06 11:21:00 Test Item Value Reference Range Interpretation Comments WBC (test code = WBC) 8.8 3.7-10.4 [facility] HospitalZlqrhhwGMSVGHSCLF6426-49-09 11:21:00 Test Item Value Reference Range Interpretation Comments RBC (test code = RBC) 5.19 4.20-5.40 [facility] HospitalAjqkftzFDZIRIDJWA2141-05-91 11:21:00 Test Item Value Reference Range Interpretation Comments Hgb (test code = Hgb) 14.4 12.0-16.0 [facility] HospitalSazscvlYXVVFQMUVI8019-48-72 11:21:00 Test Item Value Reference Range Interpretation Comments Hct (test code = Hct) 43.1 36.0-48.0 [facility] HospitalRrfzkpyTVOQPRYBAK3074-00-01 11:21:00 Test Item Value Reference Range Interpretation Comments MCV (test code = MCV) 83.1 80.0-98.0 [facility] HospitalWdnylbdVILTSBSLQY2266-32-80 11:21:00 Test Item Value Reference Range Interpretation Comments MCH (test code = MCH) 27.8 pg 27.0-31.0 [facility] HospitalUozmvqsEJNRQKNEXQ1093-08-72 11:21:00 Test Item Value Reference Range Interpretation Comments RDW (test code = RDW) 13.1 11.5-14.5 [facility] HospitalVwabxksFAWNISRSQK0216-67-45 11:21:00 Test Item Value Reference Range Interpretation Comments MCHC (test code = MCHC) 33.5 32.0-36.0 [facility] HospitalOwbqdfnMHGKQZGPVT5567-97-59 11:21:00 Test Item Value Reference Range Interpretation Comments Platelet (test code = Platelet) 201 133-450 [facility] HospitalKrcoybpQSNOVBMYHA8099-99-71 11:21:00 Test Item Value Reference Range Interpretation Comments MPV (test code = MPV) 10.4 7.4-10.4 [facility]2015-01-06 11:21:00 Test Item Value Reference Range Interpretation Comments Albumin Lvl (test code = Albumin Lvl) 3.2 3.5-5.0 [facility]2015-01-06 11:21:00 Test Item Value Reference Range Interpretation Comments Total Protein (test code = Total 6.6 6.4-8.4 Protein) [facility]2015-01-06 11:21:00 Test Item Value Reference Range Interpretation Comments Bili Total (test code = Bili Total) 0.6 0.2-1.3 [facility]2015-01-06 11:21:00 Test Item Value Reference Range Interpretation Comments Alk Phos (test code = Alk Phos) 59 39-136 [facility]2015-01-06 11:21:00 Test Item Value Reference Range Interpretation Comments AST (test code = AST) 11 See_Comment [Auto mated message] The system which ge nerated this result transmit rohit reference range : <=37. The reference range was not used to interpr et this result as reji l/abnormal. [facility]2015-01-06 11:21:00 Test Item Value Reference Range Interpretation Comments ALT (test code = ALT) 17 See_Comment [Auto mated message] The system which ge nerated this result transmit rohit reference range : <=65. The reference range was not used to interpr et this result as reji l/abnormal. [facility]2015-01-06 11:21:00 Test Item Value Reference Range Interpretation Comments eGFR (test code = eGFR) 99 [facility]2015-01-06 11:21:00 Test Item Value Reference Range Interpretation Comments Glucose Lvl (test code = Glucose Lvl) 314 70-99 [facility]2015-01-06 11:21:00 Test Item Value Reference Range Interpretation Comments Potassium Lvl (test code = Potassium 3.4 3.5-5.1 Lvl) [facility]2015-01-06 11:21:00 Test Item Value Reference Range Interpretation Comments BUN (test code = BUN) 11 7-22 [facility]2015-01-06 11:21:00 Test Item Value Reference Range Interpretation Comments Creatinine Lvl (test code = Creatinine 0.8 0.5-1.4 Lvl) [facility]2015-01-06 11:21:00 Test Item Value Reference Range Interpretation Comments Sodium Lvl (test code = Sodium Lvl) 134 135-145 [facility]2015-01-06 11:21:00 Test Item Value Reference Range Interpretation Comments Chloride Lvl (test code = Chloride Lvl) 94 95-109 [facility]2015-01-06 11:21:00 Test Item Value Reference Range Interpretation Comments Calcium Lvl (test code = Calcium Lvl) 9.1 8.5-10.5 [facility]2015-01-06 11:21:00 Test Item Value Reference Range Interpretation Comments CO2 (test code = CO2) 24 24-32 [facility]2015-01-06 11:21:00 Test Item Value Reference Range Interpretation Comments A/G Ratio (test code = A/G Ratio) 0.9 0.7-1.6 [facility]2015-01-06 11:21:00 Test Item Value Reference Range Interpretation Comments Globulin (test code = Globulin) 3.4 2.0-4.0 [facility]2015-01-06 11:21:00 Test Item Value Reference Range Interpretation Comments B/C Ratio (test code = B/C Ratio) 14 6-25 [place] 060165-01-06 11:21:00 Test Item Value Reference Range Interpretation Comments AGAP (test code = AGAP) 19.4 10.0-20.0 [facility]2015-01-06 11:21:00 Test Item Value Reference Range Interpretation Comments Lipase Lvl (test code = Lipase Lvl) 81 73-393 [facility] HospitalMzshufwHQPVGPXSRL2945-87-97 11:21:00 Test Item Value Reference Range Interpretation Comments Large Plt (test code = Large Plt) Slight [facility] HospitalZlndqfoRNILGBHCNV2593-04-50 11:21:00 Test Item Value Reference Range Interpretation Comments Basophils # (test code 0.0 See_Comment [Aut omated message] The = Basophils #) system which generated this result tra nsmitted reference range : <=0.2. The reference r leo was not used to int erpret this result as normal/abnormal . [facility] HospitalXdpuaxqPJHSJMUKKR4405-73-23 11:21:00 Test Item Value Reference Range Interpretation Comments Anisocyte (test code = 1+ *ABN*(06/26/14 5:21 Anisocyte) AM) [facility] HospitalMydoxqtWYCSYYVCKD0268-15-32 11:21:00 Test Item Value Reference Range Interpretation Comments Monocytes # (test code 0.6 See_Comment [Aut omated message] The = Monocytes #) system which generated this result tra nsmitted reference range : <=0.8. The reference r leo was not used to int erpret this result as normal/abnormal . [facility] HospitalVoyrdlnOAJETZGSQO1065-92-36 11:21:00 Test Item Value Reference Range Interpretation Comments Eosinophils # (test code 0.1 See_Comment [A utomated message] The = Eosinophils #) system whic h generated this result tra nsmitted reference range : <=0.5. The reference r leo was not used to int erpret this result as normal/abnormal . [facility] HospitalXqleljjEKLIFFUHOB3284-16-17 11:21:00 Test Item Value Reference Range Interpretation Comments Lymphocytes # (test code = Lymphocytes 2.5 1.0-5.5 #) [facility] HospitalGxfcptuDTPZGOAQZS3180-39-34 11:21:00 Test Item Value Reference Range Interpretation Comments Segs (test code = Segs) 63.3 45.0-75.0 [facility] HospitalPzyftceZHCQRLTHME7060-99-85 11:21:00 Test Item Value Reference Range Interpretation Comments Segs-Bands # (test code = Segs-Bands #) 5.6 1.5-8.1 [facility] HospitalFcegkmfCTBEWZCJOG1773-79-62 11:21:00 Test Item Value Reference Range Interpretation Comments Basophils (test code = 0.0 See_Comment [Aut omated message] The Basophils) system which ge nerated this result tra nsmitted reference range : <=1.0. The reference r leo was not used to int erpret this result as normal/abnormal . [facility] HospitalPxgftewPMMPDXCCJT3850-66-16 11:21:00 Test Item Value Reference Range Interpretation Comments Eosinophils (test code = 0.9 See_Comment [A utomated message] The Eosinophils) system which ge nerated this result tra nsmitted reference range : <=4.0. The reference r leo was not used to int erpret this result as normal/abnormal . [facility] HospitalAzxfxclTTVYYMDTLL6191-83-72 11:21:00 Test Item Value Reference Range Interpretation Comments Monocytes (test code = Monocytes) 7.0 2.0-12.0 [facility] HospitalKulsnepTNZQHJKGLB8176-75-93 11:21:00 Test Item Value Reference Range Interpretation Comments Lymphocytes (test code = Lymphocytes) 28.8 20.0-40.0 [facility] HospitalHvlxazmIIZTSIOIDZ3731-28-47 11:21:00 Test Item Value Reference Range Interpretation Comments WBC (test code = WBC) 8.8 3.7-10.4 [facility] HospitalKrxacsiPIDCDRHEGK4290-59-20 11:21:00 Test Item Value Reference Range Interpretation Comments RBC (test code = RBC) 5.19 4.20-5.40 [facility] HospitalDqblifwYVYQMZQDDJ6511-35-99 11:21:00 Test Item Value Reference Range Interpretation Comments Hgb (test code = Hgb) 14.4 12.0-16.0 [facility] HospitalEesdagtUGJAMYWAZG1598-99-49 11:21:00 Test Item Value Reference Range Interpretation Comments Hct (test code = Hct) 43.1 36.0-48.0 [facility] HospitalWlzzagvHMVRBLLJAC4056-09-13 11:21:00 Test Item Value Reference Range Interpretation Comments MCV (test code = MCV) 83.1 80.0-98.0 [facility] HospitalTiejqigCNLRJQDRCM2650-77-21 11:21:00 Test Item Value Reference Range Interpretation Comments MCH (test code = MCH) 27.8 pg 27.0-31.0 [facility] HospitalLxetdipHGJVFYUPYS1558-97-32 11:21:00 Test Item Value Reference Range Interpretation Comments RDW (test code = RDW) 13.1 11.5-14.5 [facility] HospitalIxwchvrERQKFGEHHP1493-56-66 11:21:00 Test Item Value Reference Range Interpretation Comments MCHC (test code = MCHC) 33.5 32.0-36.0 [facility] HospitalArpujwfKQHOYSVDFF4834-62-69 11:21:00 Test Item Value Reference Range Interpretation Comments Platelet (test code = Platelet) 201 133-450 [facility] HospitalEsuhdksILIKQFKRHW6333-93-82 11:21:00 Test Item Value Reference Range Interpretation Comments MPV (test code = MPV) 10.4 7.4-10.4 [facility]2015-01-06 11:21:00 Test Item Value Reference Range Interpretation Comments Albumin Lvl (test code = Albumin Lvl) 3.2 3.5-5.0 [facility]2015-01-06 11:21:00 Test Item Value Reference Range Interpretation Comments Total Protein (test code = Total 6.6 6.4-8.4 Protein) [facility]2015-01-06 11:21:00 Test Item Value Reference Range Interpretation Comments Bili Total (test code = Bili Total) 0.6 0.2-1.3 [facility]2015-01-06 11:21:00 Test Item Value Reference Range Interpretation Comments Alk Phos (test code = Alk Phos) 59 39-136 [facility]2015-01-06 11:21:00 Test Item Value Reference Range Interpretation Comments AST (test code = AST) 11 See_Comment [Auto mated message] The system which ge nerated this result transmit rohit reference range : <=37. The reference range was not used to interpr et this result as reji l/abnormal. [facility]2015-01-06 11:21:00 Test Item Value Reference Range Interpretation Comments ALT (test code = ALT) 17 See_Comment [Auto mated message] The system which ge nerated this result transmit rohit reference range : <=65. The reference range was not used to interpr et this result as reji l/abnormal. [facility]2015-01-06 11:21:00 Test Item Value Reference Range Interpretation Comments eGFR (test code = eGFR) 99 [facility]2015-01-06 11:21:00 Test Item Value Reference Range Interpretation Comments Glucose Lvl (test code = Glucose Lvl) 314 70-99 [facility]2015-01-06 11:21:00 Test Item Value Reference Range Interpretation Comments Potassium Lvl (test code = Potassium 3.4 3.5-5.1 Lvl) [facility]2015-01-06 11:21:00 Test Item Value Reference Range Interpretation Comments BUN (test code = BUN) 11 7-22 [facility]2015-01-06 11:21:00 Test Item Value Reference Range Interpretation Comments Creatinine Lvl (test code = Creatinine 0.8 0.5-1.4 Lvl) [facility]2015-01-06 11:21:00 Test Item Value Reference Range Interpretation Comments Sodium Lvl (test code = Sodium Lvl) 134 135-145 [facility]2015-01-06 11:21:00 Test Item Value Reference Range Interpretation Comments Chloride Lvl (test code = Chloride Lvl) 94 95-109 [facility]2015-01-06 11:21:00 Test Item Value Reference Range Interpretation Comments Calcium Lvl (test code = Calcium Lvl) 9.1 8.5-10.5 [facility]2015-01-06 11:21:00 Test Item Value Reference Range Interpretation Comments CO2 (test code = CO2) 24 24-32 [facility]2015-01-06 11:21:00 Test Item Value Reference Range Interpretation Comments A/G Ratio (test code = A/G Ratio) 0.9 0.7-1.6 [facility]2015-01-06 11:21:00 Test Item Value Reference Range Interpretation Comments Globulin (test code = Globulin) 3.4 2.0-4.0 [facility]2015-01-06 11:21:00 Test Item Value Reference Range Interpretation Comments B/C Ratio (test code = B/C Ratio) 14 6-25 [facility]2015-01-06 11:21:00 Test Item Value Reference Range Interpretation Comments AGAP (test code = AGAP) 19.4 10.0-20.0 [facility]2015-01-06 11:21:00 Test Item Value Reference Range Interpretation Comments Lipase Lvl (test code = Lipase Lvl) 81 73-393 [facility] HospitalHfqaaxlQIHSBKXOXI7361-80-05 11:21:00 Test Item Value Reference Range Interpretation Comments Large Plt (test code = Large Plt) Slight [facility] HospitalXbnlgztFYTPHHHDOR4174-33-77 11:21:00 Test Item Value Reference Range Interpretation Comments Basophils # (test code 0.0 See_Comment [Aut omated message] The = Basophils #) system which generated this result tra nsmitted reference range : <=0.2. The reference r leo was not used to int erpret this result as normal/abnormal . [facility] HospitalXshkxvzDXORDEIUJS8870-84-58 11:21:00 Test Item Value Reference Range Interpretation Comments Anisocyte (test code = 1+ *ABN*(06/26/14 5:21 Anisocyte) AM) [facility] HospitalVyliqhoDEUVCFXBBQ9785-22-32 11:21:00 Test Item Value Reference Range Interpretation Comments Monocytes # (test code 0.6 See_Comment [Aut omated message] The = Monocytes #) system which generated this result tra nsmitted reference range : <=0.8. The reference r leo was not used to int erpret this result as normal/abnormal . [facility] HospitalDwfhtmdRGEWVVKMMG9375-37-92 11:21:00 Test Item Value Reference Range Interpretation Comments Eosinophils # (test code 0.1 See_Comment [A utomated message] The = Eosinophils #) system whic h generated this result tra nsmitted reference range : <=0.5. The reference r leo was not used to int erpret this result as normal/abnormal . [facility] HospitalSdqgxtaVZIBEHAQSL7777-71-81 11:21:00 Test Item Value Reference Range Interpretation Comments Lymphocytes # (test code = Lymphocytes 2.5 1.0-5.5 #) [facility] HospitalPurixvrNZCEBZKXHI4778-63-69 11:21:00 Test Item Value Reference Range Interpretation Comments Segs (test code = Segs) 63.3 45.0-75.0 [facility] HospitalZvljtihNVDRQBORAB5494-31-38 11:21:00 Test Item Value Reference Range Interpretation Comments Segs-Bands # (test code = Segs-Bands #) 5.6 1.5-8.1 [facility] HospitalLodunwqIMABPNKFYM8785-20-64 11:21:00 Test Item Value Reference Range Interpretation Comments Basophils (test code = 0.0 See_Comment [Aut omated message] The Basophils) system which ge nerated this result tra nsmitted reference range : <=1.0. The reference r leo was not used to int erpret this result as normal/abnormal . [facility] HospitalBfxiiajDUNOSBMGPE8022-72-72 11:21:00 Test Item Value Reference Range Interpretation Comments Eosinophils (test code = 0.9 See_Comment [A utomated message] The Eosinophils) system which ge nerated this result tra nsmitted reference range : <=4.0. The reference r leo was not used to int erpret this result as normal/abnormal . [facility] HospitalKlwbolcIXPJVLRQYA1959-27-34 11:21:00 Test Item Value Reference Range Interpretation Comments Monocytes (test code = Monocytes) 7.0 2.0-12.0 [facility] HospitalGoffaegWQMWZKBDAA8349-71-78 11:21:00 Test Item Value Reference Range Interpretation Comments Lymphocytes (test code = Lymphocytes) 28.8 20.0-40.0 [facility] HospitalNoxydneXKTRYOOLAT6520-65-42 11:21:00 Test Item Value Reference Range Interpretation Comments WBC (test code = WBC) 8.8 3.7-10.4 [facility] HospitalLgtebbvAYYZQTMNPO5459-73-09 11:21:00 Test Item Value Reference Range Interpretation Comments RBC (test code = RBC) 5.19 4.20-5.40 [facility] HospitalHgqojedKVHBNTEFKS5694-84-41 11:21:00 Test Item Value Reference Range Interpretation Comments Hgb (test code = Hgb) 14.4 12.0-16.0 [facility] HospitalMzmjnenEKDXOFBTDL2077-95-84 11:21:00 Test Item Value Reference Range Interpretation Comments Hct (test code = Hct) 43.1 36.0-48.0 [facility] HospitalTosakisPLMXZNVRZB8456-13-81 11:21:00 Test Item Value Reference Range Interpretation Comments MCV (test code = MCV) 83.1 80.0-98.0 [facility] HospitalXfwgkrsXJOCVKCGCB2269-45-34 11:21:00 Test Item Value Reference Range Interpretation Comments MCH (test code = MCH) 27.8 pg 27.0-31.0 [facility] HospitalZrewpizNHJGWBZLOK2631-23-89 11:21:00 Test Item Value Reference Range Interpretation Comments RDW (test code = RDW) 13.1 11.5-14.5 [facility] HospitalZxnxlbpOEUGURXTGQ5218-05-59 11:21:00 Test Item Value Reference Range Interpretation Comments MCHC (test code = MCHC) 33.5 32.0-36.0 [facility] HospitalGgbelusUKKCEJOSMN9430-51-03 11:21:00 Test Item Value Reference Range Interpretation Comments Platelet (test code = Platelet) 201 133-450 [facility] HospitalQyqwwhwWWOZSNEETN7058-39-12 11:21:00 Test Item Value Reference Range Interpretation Comments MPV (test code = MPV) 10.4 7.4-10.4 [facility]JlbgmmyHDDBJFVIFM5999-20-54 04:48:55 Test Item Value Reference Range Interpretation Comments UA [place] Yeast (test code = UA Occasional /HPF A [place] Yeast) [facility] CenterEyldvkjXKXHHQVWEN9281-78-36 04:48:55 Test Item Value Reference Range Interpretation Comments UA Mucus (test code = UA Mucus) Few /LPF N [facility] CenterQsudkbnYOQWSKRXBW2088-75-67 04:48:55 Test Item Value Reference Range Interpretation Comments UA Sq Epi (test code = UA Sq Moderate /LPF A Epi) [facility] CenterLrrpeiqIAYZTBVBZD8807-58-05 04:48:55 Test Item Value Reference Range Interpretation Comments Micro? (test code = Performed (04/14/2013 N Micro?) 23:48:55) [facility] CenterSnfxujkVCXOPYPJBA9884-18-51 04:48:55 Test Item Value Reference Range Interpretation Comments UA WBC (test code = UA WBC) 0-2 /HPF N [facility] CenterOdecibrYRPDEEAMVE8475-80-44 04:48:55 Test Item Value Reference Range Interpretation Comments UA Bacteria (test code = UA Occasional /HPF N Bacteria) [facility] CenterCcurcscMCZVQRJTWF3410-83-30 04:48:55 Test Item Value Reference Range Interpretation Comments UA Glucose (test code = UA Glucose) 500 mg/dL A [facility] CenterNuygzofYELFBQBTTG3338-89-93 04:48:55 Test Item Value Reference Range Interpretation Comments UA Bili (test code = Negative *NA*(04/14/2013 UA Bili) 23:48:55) [facility] CenterPjecgnkMEDZGZQVSL0308-13-30 04:48:55 Test Item Value Reference Range Interpretation Comments UA Ketones (test code = Trace A UA Ketones) *ABN*(04/14/2013 23:48:55) [facility] CenterPwqqptvMHEZQEORCB8492-82-05 04:48:55 Test Item Value Reference Range Interpretation Comments UA Blood (test code = Negative (04/14/2013 N UA Blood) 23:48:55) [facility] CenterIquhzgyXYLOJBGCDT0594-45-36 04:48:55 Test Item Value Reference Range Interpretation Comments UA Urobilinogen (test code = UA 0.2 0.1-1.0 N Urobilinogen) [facility] CenterEvocnrvMKKJZNMMBZ0293-02-93 04:48:55 Test Item Value Reference Range Interpretation Comments UA Nitrite (test code Negative (04/14/2013 N = UA Nitrite) 23:48:55) [facility] CenterPccdjhxNDEYUHDJIT7771-62-44 04:48:55 Test Item Value Reference Range Interpretation Comments UA Leuk Est (test Negative (04/14/2013 N code = UA Leuk Est) 23:48:55) [facility] CenterHkilipfHXHNKNTYKY7745-20-12 04:48:55 Test Item Value Reference Range Interpretation Comments UA Turbidity (test code = Clear (04/14/2013 N UA Turbidity) 23:48:55) [facility] CenterObamffzFINDYEJGYY1636-26-13 04:48:55 Test Item Value Reference Range Interpretation Comments UA Color (test code = Yellow *NA*(04/14/2013 UA Color) 23:48:55) [facility] CenterZtyipciRVXJPKXCVQ9748-58-35 04:48:55 Test Item Value Reference Range Interpretation Comments UA pH (test code = UA pH) 7.0 1 5.0-8.0 N [facility] CenterBfootxwKVHRQYAAXB3559-57-77 04:48:55 Test Item Value Reference Range Interpretation Comments UA Spec Grav (test code = UA Spec 1.025 1 N Grav) [facility] CenterFcmykolABAQWMYKUF3019-64-81 04:48:55 Test Item Value Reference Range Interpretation Comments UA Protein (test code = Trace A UA Protein) *ABN*(04/14/2013 23:48:55) [facility] CenterQjcfzqxGDXARLSKSI8785-70-67 04:48:55 Test Item Value Reference Range Interpretation Comments UA [place] Yeast (test code = UA Occasional /HPF A [place] Yeast) [facility] CenterBwrgtslIKFNVPFJPM6116-46-95 04:48:55 Test Item Value Reference Range Interpretation Comments UA Mucus (test code = UA Mucus) Few /LPF N [facility] CenterWncdmcvVIBDIIDVTC6360-36-50 04:48:55 Test Item Value Reference Range Interpretation Comments UA Sq Epi (test code = UA Sq Moderate /LPF A Epi) [facility] CenterOssfocqORNUBSQMJH7716-78-64 04:48:55 Test Item Value Reference Range Interpretation Comments Micro? (test code = Performed (04/14/2013 N Micro?) 23:48:55) [facility] CenterPxwvbqpUXQFMFRFOB1535-30-59 04:48:55 Test Item Value Reference Range Interpretation Comments UA WBC (test code = UA WBC) 0-2 /HPF N [facility] CenterDwouyfvPOZIUWVGDC8125-46-97 04:48:55 Test Item Value Reference Range Interpretation Comments UA Bacteria (test code = UA Occasional /HPF N Bacteria) [facility] CenterBlwispnQTTRDCXDBK5209-78-07 04:48:55 Test Item Value Reference Range Interpretation Comments UA Glucose (test code = UA Glucose) 500 mg/dL A [facility] CenterPujcrpsKZKXYZHRSZ2057-75-09 04:48:55 Test Item Value Reference Range Interpretation Comments UA Bili (test code = Negative *NA*(04/14/2013 UA Bili) 23:48:55) [facility] CenterArldxolRRTILSKLWG2017-11-61 04:48:55 Test Item Value Reference Range Interpretation Comments UA Ketones (test code = Trace A UA Ketones) *ABN*(04/14/2013 23:48:55) [facility] CenterNzpoymgQPUACDGNUY1941-77-77 04:48:55 Test Item Value Reference Range Interpretation Comments UA Blood (test code = Negative (04/14/2013 N UA Blood) 23:48:55) [facility] CenterHijonziHFVUQPJTYX4621-87-85 04:48:55 Test Item Value Reference Range Interpretation Comments UA Urobilinogen (test code = UA 0.2 0.1-1.0 N Urobilinogen) [facility] CenterDjgdvrcFSFCTNEZCG9843-35-35 04:48:55 Test Item Value Reference Range Interpretation Comments UA Nitrite (test code Negative (04/14/2013 N = UA Nitrite) 23:48:55) [facility] CenterUkrwoabBSTXHDTXGK0192-06-42 04:48:55 Test Item Value Reference Range Interpretation Comments UA Leuk Est (test Negative (04/14/2013 N code = UA Leuk Est) 23:48:55) [facility] CenterVnmuxkaKOLODYUBXC7038-23-51 04:48:55 Test Item Value Reference Range Interpretation Comments UA Turbidity (test code = Clear (04/14/2013 N UA Turbidity) 23:48:55) [facility] CenterBtqbeqkNXOZOHPMAJ8479-52-16 04:48:55 Test Item Value Reference Range Interpretation Comments UA Color (test code = Yellow *NA*(04/14/2013 UA Color) 23:48:55) [facility] CenterPnijckvVIPZJIYTLS4022-99-12 04:48:55 Test Item Value Reference Range Interpretation Comments UA pH (test code = UA pH) 7.0 1 5.0-8.0 N [facility] CenterQkfraelBBAEQBOSJY2280-48-79 04:48:55 Test Item Value Reference Range Interpretation Comments UA Spec Grav (test code = UA Spec 1.025 1 N Grav) [facility] CenterSnzuvqbWZMDHPXROL2021-24-49 04:48:55 Test Item Value Reference Range Interpretation Comments UA Protein (test code = Trace A UA Protein) *ABN*(04/14/2013 23:48:55) [facility] CenterZbujgofZCNVLIJSLD9807-75-88 04:48:55 Test Item Value Reference Range Interpretation Comments UA [place] Yeast (test code = UA Occasional /HPF A [place] Yeast) [facility] CenterRlioiimMAFXPOMEOV7511-58-02 04:48:55 Test Item Value Reference Range Interpretation Comments UA Mucus (test code = UA Mucus) Few /LPF N [facility] CenterUuqrldtKOTVTYGMBK2494-11-49 04:48:55 Test Item Value Reference Range Interpretation Comments UA Sq Epi (test code = UA Sq Moderate /LPF A Epi) [facility] CenterIezezkzGJDDQIUEQX5294-38-59 04:48:55 Test Item Value Reference Range Interpretation Comments Micro? (test code = Performed (04/14/2013 N Micro?) 23:48:55) [facility] CenterRuiebsiKXOBKIAZJW7722-94-13 04:48:55 Test Item Value Reference Range Interpretation Comments UA WBC (test code = UA WBC) 0-2 /HPF N [facility] CenterSqubuwvMRFSNLKJUA0111-35-33 04:48:55 Test Item Value Reference Range Interpretation Comments UA Bacteria (test code = UA Occasional /HPF N Bacteria) [facility] CenterPohdoypJKNCBDBQCM6295-03-37 04:48:55 Test Item Value Reference Range Interpretation Comments UA Glucose (test code = UA Glucose) 500 mg/dL A [facility] CenterJrphiqdPOREUPZEGR4456-79-74 04:48:55 Test Item Value Reference Range Interpretation Comments UA Bili (test code = Negative *NA*(04/14/2013 UA Bili) 23:48:55) [facility] CenterVxzxjrlJQREWAPNQY6075-24-68 04:48:55 Test Item Value Reference Range Interpretation Comments UA Ketones (test code = Trace A UA Ketones) *ABN*(04/14/2013 23:48:55) [facility] CenterNnmkavwHJXZKUPGAK2424-26-54 04:48:55 Test Item Value Reference Range Interpretation Comments UA Blood (test code = Negative (04/14/2013 N UA Blood) 23:48:55) [facility] CenterXurevegFADTPAHBFH3041-61-63 04:48:55 Test Item Value Reference Range Interpretation Comments UA Urobilinogen (test code = UA 0.2 0.1-1.0 N Urobilinogen) [facility] CenterGxicttuDOWSAQGJWV4828-48-48 04:48:55 Test Item Value Reference Range Interpretation Comments UA Nitrite (test code Negative (04/14/2013 N = UA Nitrite) 23:48:55) [facility] CenterZfxhdedPMPHMXKWVW7810-08-19 04:48:55 Test Item Value Reference Range Interpretation Comments UA Leuk Est (test Negative (04/14/2013 N code = UA Leuk Est) 23:48:55) [facility] CenterTauvpszLNEOSBPCFR7891-17-93 04:48:55 Test Item Value Reference Range Interpretation Comments UA Turbidity (test code = Clear (04/14/2013 N UA Turbidity) 23:48:55) [facility] CenterQypydzwRXEXPJEBZX6863-18-10 04:48:55 Test Item Value Reference Range Interpretation Comments UA Color (test code = Yellow *NA*(04/14/2013 UA Color) 23:48:55) [facility] CenterZzqrpryEFHYUSKKPW3644-79-86 04:48:55 Test Item Value Reference Range Interpretation Comments UA pH (test code = UA pH) 7.0 1 5.0-8.0 N [facility] CenterCovraooCKHPFJRFTZ6859-54-68 04:48:55 Test Item Value Reference Range Interpretation Comments UA Spec Grav (test code = UA Spec 1.025 1 N Grav) [facility]ChsgiqvCJWHEGYQFX0308-30-51 04:48:55 Test Item Value Reference Range Interpretation Comments UA Protein (test code = Trace A UA Protein) *ABN*(04/14/2013 23:48:55) [facility] CenterQescccuQQNYPNVXDD3590-62-18 04:48:55 Test Item Value Reference Range Interpretation Comments UA [place] Yeast (test code = UA Occasional /HPF A [place] Yeast) [facility] HospitalNldnjcyLXAWMEBYGF4575-45-10 04:48:55 Test Item Value Reference Range Interpretation Comments UA Mucus (test code = UA Mucus) Few /LPF N [facility] CenterSzwibwfCKBOCKDBAM2058-10-06 04:48:55 Test Item Value Reference Range Interpretation Comments UA Sq Epi (test code = UA Sq Moderate /LPF A Epi) [facility] CenterWvahvrcHIKQTOKKFF3306-66-76 04:48:55 Test Item Value Reference Range Interpretation Comments Micro? (test code = Performed (04/14/2013 N Micro?) 23:48:55) [facility] CenterKmxjxdfVYMPSBJEJG3553-47-06 04:48:55 Test Item Value Reference Range Interpretation Comments UA WBC (test code = UA WBC) 0-2 /HPF N [facility] CenterBeoeuyxAKOOVMMUDV7423-41-66 04:48:55 Test Item Value Reference Range Interpretation Comments UA Bacteria (test code = UA Occasional /HPF N Bacteria) [facility] CenterYvqjbglIAQQHEZDVE0644-22-80 04:48:55 Test Item Value Reference Range Interpretation Comments UA Glucose (test code = UA Glucose) 500 mg/dL A [facility] CenterVbbvzcoQBOZIEYKSN8092-58-62 04:48:55 Test Item Value Reference Range Interpretation Comments UA Bili (test code = Negative *NA*(04/14/2013 UA Bili) 23:48:55) [facility] CenterIlimdcuJOXEWUHRJZ2072-90-39 04:48:55 Test Item Value Reference Range Interpretation Comments UA Ketones (test code = Trace A UA Ketones) *ABN*(04/14/2013 23:48:55) [facility] CenterSskgcliOOYWDLUSXC3747-76-52 04:48:55 Test Item Value Reference Range Interpretation Comments UA Blood (test code = Negative (04/14/2013 N UA Blood) 23:48:55) [facility] CenterZpulhmpPLEWUWBEUE4693-42-72 04:48:55 Test Item Value Reference Range Interpretation Comments UA Urobilinogen (test code = UA 0.2 0.1-1.0 N Urobilinogen) [facility] CenterRknpazaKHWLWDZHPB0099-66-64 04:48:55 Test Item Value Reference Range Interpretation Comments UA Nitrite (test code Negative (04/14/2013 N = UA Nitrite) 23:48:55) [facility] CenterZuwzuldBOPQZGRYMJ5032-25-35 04:48:55 Test Item Value Reference Range Interpretation Comments UA Leuk Est (test Negative (04/14/2013 N code = UA Leuk Est) 23:48:55) [facility] CenterLbmobdqEPRQEKRMMN7533-22-63 04:48:55 Test Item Value Reference Range Interpretation Comments UA Turbidity (test code = Clear (04/14/2013 N UA Turbidity) 23:48:55) [facility] CenterEvktkbiJRRRAEKXWQ0279-03-28 04:48:55 Test Item Value Reference Range Interpretation Comments UA Color (test code = Yellow *NA*(04/14/2013 UA Color) 23:48:55) [facility] CenterInaeqlsYRVVQVTPVP5288-80-76 04:48:55 Test Item Value Reference Range Interpretation Comments UA pH (test code = UA pH) 7.0 1 5.0-8.0 N [facility] CenterOzsqkapOSWYVLJSJK7359-20-87 04:48:55 Test Item Value Reference Range Interpretation Comments UA Spec Grav (test code = UA Spec 1.025 1 N Grav) [facility] CenterEkgcldtNDQOBXCIGY4565-69-30 04:48:55 Test Item Value Reference Range Interpretation Comments UA Protein (test code = Trace A UA Protein) *ABN*(04/14/2013 23:48:55) [facility] CenterSnamtmjGAZLNBJWL1185-87-17 04:28:00 Test Item Value Reference Range Interpretation Comments S Preg (test code = S Negative *NA*(04/14/2013 Preg) 23:28:00) [facility] CenterBtuistiQEGRJYJGE0124-99-28 04:28:00 Test Item Value Reference Range Interpretation Comments Lipase Lvl (test code = Lipase Lvl) 233 73-393 N [facility] CenterAohrmdeDEBAELRWF0861-70-39 04:28:00 Test Item Value Reference Range Interpretation Comments Globulin (test code = Globulin) 4.1 2.0-4.0 H [facility] CenterPcbjefsJUQCMTKNX3537-18-91 04:28:00 Test Item Value Reference Range Interpretation Comments AGAP (test code = AGAP) 10.5 10.0-20.0 N [facility] CenterWymhshpNWQCAVEWI1701-75-09 04:28:00 Test Item Value Reference Range Interpretation Comments B/C Ratio (test code = B/C Ratio) 6 6-25 N [facility] CenterVnoeyfpXMGYCBBFO3477-62-08 04:28:00 Test Item Value Reference Range Interpretation Comments A/G Ratio (test code = A/G Ratio) 0.7 0.7-1.6 N [facility] CenterXmljgygOQFQNCLRR6768-34-14 04:28:00 Test Item Value Reference Range Interpretation Comments eGFR (test code = eGFR) 130 [facility] CenterYgjzfhtWWIJTQKHE2269-54-06 04:28:00 Test Item Value Reference Range Interpretation Comments Albumin Lvl (test code = Albumin Lvl) 2.9 3.5-5.0 L [facility] CenterQnihnotNHJCKCQTJ8726-64-98 04:28:00 Test Item Value Reference Range Interpretation Comments ASPARTATE TRANSAMINASE 20 See_Comment N [Aut omated message] (test code = ASPARTATE The s ystem which TRANSAMINASE) generated this result transmitted ref erence range: <=37. Th e reference range was not used to interpr et this result as normal/abnormal . [facility] CenterVxisrfoOMIAWXXQE3023-69-66 04:28:00 Test Item Value Reference Range Interpretation Comments Bili Total (test code = Bili Total) 0.5 0.2-1.3 N [facility] CenterApsululWTGDZEWLF3678-39-51 04:28:00 Test Item Value Reference Range Interpretation Comments Alk Phos (test code = Alk Phos) 89 39-136 N [facility] CenterRootsdmGVYPUAPXL6992-08-38 04:28:00 Test Item Value Reference Range Interpretation Comments ALANINE AMINOTRANSFERASE 11 See_Comment N [A utomated message] (test code = ALANINE The sys tem which AMINOTRANSFERASE) generated this result transmitted ref erence range: <=65. Th e reference range was not used to int erpret this result as normal/abnormal . [facility] CenterFmxzdvaKBGSDDKFM7832-04-57 04:28:00 Test Item Value Reference Range Interpretation Comments Creatinine Lvl (test code = Creatinine 0.5 0.5-1.4 N Lvl) [facility] CenterFefturtMTFUHCLSJ7704-09-50 04:28:00 Test Item Value Reference Range Interpretation Comments BUN (test code = BUN) 3 7-22 L [facility] CenterFsmqscrVHZWSZUYA4768-40-47 04:28:00 Test Item Value Reference Range Interpretation Comments Glucose Lvl (test code = Glucose Lvl) 255 70-99 H [facility] CenterXsrrkqcEPPNYAEXS5750-96-32 04:28:00 Test Item Value Reference Range Interpretation Comments Total Protein (test code = Total 7.0 6.4-8.4 N Protein) [facility] CenterHwlebnpHOQUEPKZU9057-54-02 04:28:00 Test Item Value Reference Range Interpretation Comments Calcium Lvl (test code = Calcium Lvl) 8.7 8.5-10.5 N [facility] CenterOspfqblZMLEUTOHP6543-67-24 04:28:00 Test Item Value Reference Range Interpretation Comments CO2 (test code = CO2) 29 24-32 N [facility] CenterFcyfslbLRSNATZQG4728-77-51 04:28:00 Test Item Value Reference Range Interpretation Comments Chloride Lvl (test code = Chloride Lvl) 104 95-109 N [facility] CenterKjvlajpAOQVIXEJG6711-67-49 04:28:00 Test Item Value Reference Range Interpretation Comments Potassium Lvl (test code = Potassium 3.5 3.5-5.1 N Lvl) [facility] CenterBcrljbzOKMHEWYBK5338-89-76 04:28:00 Test Item Value Reference Range Interpretation Comments Sodium Lvl (test code = Sodium Lvl) 140 135-145 N [facility] HospitalVoyswvuANUZANYJHP6666-90-99 04:28:00 Test Item Value Reference Range Interpretation Comments PROTIME (test code = PROTIME) 12.1 s 12.0-14.7 N [facility] HospitalXcpkpnmVKNBJIYIES4059-58-15 04:28:00 Test Item Value Reference Range Interpretation Comments aPTT (test code = aPTT) 39.0 s 22.9-35.8 H [facility] HospitalXkcemwdDCHPYBMVLM4645-82-69 04:28:00 Test Item Value Reference Range Interpretation Comments INR (test code = INR) 0.90 0.85-1.17 N [facility] HospitalHlyecxqFGZKSYZLLA8339-44-84 04:28:00 Test Item Value Reference Range Interpretation Comments MCH (test code = MCH) 29.4 pg 27.0-31.0 N [facility] HospitalJupnsaoJOPBIYBJDI0433-45-51 04:28:00 Test Item Value Reference Range Interpretation Comments MCV (test code = MCV) 86.1 81.0-99.0 N [facility] HospitalKtlnqwlVITOLCFBPO3560-11-45 04:28:00 Test Item Value Reference Range Interpretation Comments Hct (test code = Hct) 29.4 36.0-48.0 L [facility] HospitalVnddcftMWQAMGXJFT1024-74-02 04:28:00 Test Item Value Reference Range Interpretation Comments RDW (test code = RDW) 14.0 11.5-14.5 N [facility] HospitalMflbetzEDJEKEBITW5013-84-63 04:28:00 Test Item Value Reference Range Interpretation Comments WBC X 10x3 (test code = WBC X 10x3) 6.2 3.7-10.4 N [facility] HospitalGvbagixVTRVIJCBHP5920-10-42 04:28:00 Test Item Value Reference Range Interpretation Comments Platelet (test code = Platelet) 178 133-450 N [facility] HospitalKkovavpTRJWJTWGST9651-07-40 04:28:00 Test Item Value Reference Range Interpretation Comments MCHC (test code = MCHC) 34.1 32.0-36.0 N [facility] HospitalPvdbryqDTQVTSESAB6192-10-24 04:28:00 Test Item Value Reference Range Interpretation Comments RBC X 10x6 (test code = RBC X 10x6) 3.41 4.20-5.40 L [facility] HospitalVzcsnfsSFCPFOXQBQ5233-54-32 04:28:00 Test Item Value Reference Range Interpretation Comments Hgb (test code = Hgb) 10.0 12.0-16.0 L [facility] HospitalAfnxpwkFCDQKTPLAF3648-82-15 04:28:00 Test Item Value Reference Range Interpretation Comments MPV (test code = MPV) 10.1 7.4-10.4 N [facility] HospitalOiboroiPCUVUFGCWT8717-59-19 04:28:00 Test Item Value Reference Range Interpretation Comments Segs-Bands # (test code = Segs-Bands #) 4.4 1.5-8.1 N [facility] HospitalKsgrlpiHEFVJARSKE7764-05-39 04:28:00 Test Item Value Reference Range Interpretation Comments Basophils (test code = 0.7 See_Comment N [Aut omated message] The Basophils) system which ge nerated this result tra nsmitted reference range : <=1.0. The reference r leo was not used to int erpret this result as normal/abnormal . [facility] HospitalOlngjtoTLINRJUHIC9608-52-03 04:28:00 Test Item Value Reference Range Interpretation Comments Segs (test code = Segs) 70.7 45.0-75.0 N [facility] HospitalSygjdjhBPMTOHAYHI2999-57-94 04:28:00 Test Item Value Reference Range Interpretation Comments Monocytes # (test code 0.3 See_Comment N [Aut omated message] The = Monocytes #) system which generated this result tra nsmitted reference range : <=0.8. The reference r leo was not used to int erpret this result as normal/abnormal . [facility] HospitalJyzbpgxCZNGGCLWUX8303-96-53 04:28:00 Test Item Value Reference Range Interpretation Comments Lymphocytes # (test code = Lymphocytes 1.2 1.0-5.5 N #) [facility] HospitalNvgzjwuFOQRTKYCFK0938-99-75 04:28:00 Test Item Value Reference Range Interpretation Comments Monocytes (test code = Monocytes) 4.5 2.0-12.0 N [facility] HospitalDjnxuarKUHODYWYFO5415-41-40 04:28:00 Test Item Value Reference Range Interpretation Comments Eosinophils (test code = 4.1 See_Comment H [A utomated message] The Eosinophils) system which ge nerated this result tra nsmitted reference range : <=4.0. The reference r leo was not used to int erpret this result as normal/abnormal . [facility] HospitalLsysrylELBZMVPUZD4855-61-72 04:28:00 Test Item Value Reference Range Interpretation Comments Lymphocytes (test code = Lymphocytes) 20.0 20.0-40.0 N [facility] HospitalFgkfhttLBRJASFTPG3251-06-91 04:28:00 Test Item Value Reference Range Interpretation Comments Basophils # (test code 0.0 See_Comment N [Aut omated message] The = Basophils #) system which generated this result tra nsmitted reference range : <=0.2. The reference r leo was not used to int erpret this result as normal/abnormal . [facility] HospitalMegecldIESGVDGPXN0467-19-78 04:28:00 Test Item Value Reference Range Interpretation Comments Eosinophils # (test code 0.3 See_Comment N [A utomated message] The = Eosinophils #) system whic h generated this result tra nsmitted reference range : <=0.5. The reference r leo was not used to int erpret this result as normal/abnormal . [facility] CenterWmbqhtdNPCTPJDUY3869-38-08 04:28:00 Test Item Value Reference Range Interpretation Comments S Preg (test code = S Negative *NA*(04/14/2013 Preg) 23:28:00) [facility] CenterZcazjzuVOOVNFWHR2432-06-82 04:28:00 Test Item Value Reference Range Interpretation Comments Lipase Lvl (test code = Lipase Lvl) 233 73-393 N [facility] CenterFwisknsOXRACECKY2571-94-11 04:28:00 Test Item Value Reference Range Interpretation Comments Globulin (test code = Globulin) 4.1 2.0-4.0 H [facility] CenterAumospaMCYSHPJPV7919-69-84 04:28:00 Test Item Value Reference Range Interpretation Comments AGAP (test code = AGAP) 10.5 10.0-20.0 N [facility] CenterFiwaxdgDUZFIKYDQ4297-25-96 04:28:00 Test Item Value Reference Range Interpretation Comments B/C Ratio (test code = B/C Ratio) 6 6-25 N [facility] CenterDhvczedVFUVITRPM5488-96-51 04:28:00 Test Item Value Reference Range Interpretation Comments A/G Ratio (test code = A/G Ratio) 0.7 0.7-1.6 N [facility] CenterEnupkeyYQAJAXCZL1112-68-94 04:28:00 Test Item Value Reference Range Interpretation Comments eGFR (test code = eGFR) 130 [facility] CenterVjzrauwMJPGQESJB0535-08-00 04:28:00 Test Item Value Reference Range Interpretation Comments Albumin Lvl (test code = Albumin Lvl) 2.9 3.5-5.0 L [facility] CenterKvojxcpRZDPRVTUS5683-22-63 04:28:00 Test Item Value Reference Range Interpretation Comments ASPARTATE TRANSAMINASE 20 See_Comment N [Aut omated message] (test code = ASPARTATE The s ystem which TRANSAMINASE) generated this result transmitted ref erence range: <=37. Th e reference range was not used to interpr et this result as normal/abnormal . [facility] CenterGndgzzxSQIHSPHQE6975-30-11 04:28:00 Test Item Value Reference Range Interpretation Comments Bili Total (test code = Bili Total) 0.5 0.2-1.3 N [facility] CenterLdptnbsGWVTWBHNX0889-11-28 04:28:00 Test Item Value Reference Range Interpretation Comments Alk Phos (test code = Alk Phos) 89 39-136 N [facility] CenterThznsqsZVNRAQVCX6841-63-02 04:28:00 Test Item Value Reference Range Interpretation Comments ALANINE AMINOTRANSFERASE 11 See_Comment N [A utomated message] (test code = ALANINE The sys tem which AMINOTRANSFERASE) generated this result transmitted ref erence range: <=65. Th e reference range was not used to int erpret this result as normal/abnormal . [facility] CenterDsrudkoMOPQEXKQQ5281-85-56 04:28:00 Test Item Value Reference Range Interpretation Comments Creatinine Lvl (test code = Creatinine 0.5 0.5-1.4 N Lvl) [facility] CenterOtngbcmYFQXJEUTU7401-76-62 04:28:00 Test Item Value Reference Range Interpretation Comments BUN (test code = BUN) 3 7-22 L [facility] CenterIgptyxbJIDVCOCCW8409-90-18 04:28:00 Test Item Value Reference Range Interpretation Comments Glucose Lvl (test code = Glucose Lvl) 255 70-99 H [facility] CenterJpgkzcfLXZIOTLUV3185-04-59 04:28:00 Test Item Value Reference Range Interpretation Comments Total Protein (test code = Total 7.0 6.4-8.4 N Protein) [facility] CenterMirmgcjSVLLXHIHO6063-84-47 04:28:00 Test Item Value Reference Range Interpretation Comments Calcium Lvl (test code = Calcium Lvl) 8.7 8.5-10.5 N [facility] CenterGusjftcEUAFJWUMG8329-95-94 04:28:00 Test Item Value Reference Range Interpretation Comments CO2 (test code = CO2) 29 24-32 N [facility] CenterGvmompeSHNMWFAZQ1170-30-13 04:28:00 Test Item Value Reference Range Interpretation Comments Chloride Lvl (test code = Chloride Lvl) 104 95-109 N [facility] CenterGjwauecMUFJESBTS7121-98-34 04:28:00 Test Item Value Reference Range Interpretation Comments Potassium Lvl (test code = Potassium 3.5 3.5-5.1 N Lvl) [facility] CenterLpneiwjETYYSMIVN7334-38-10 04:28:00 Test Item Value Reference Range Interpretation Comments Sodium Lvl (test code = Sodium Lvl) 140 135-145 N [facility] HospitalFbavnqwONOUQEOPTH5474-26-70 04:28:00 Test Item Value Reference Range Interpretation Comments PROTIME (test code = PROTIME) 12.1 s 12.0-14.7 N [facility] HospitalDmumuhfAPBNDAKVMV4090-12-29 04:28:00 Test Item Value Reference Range Interpretation Comments aPTT (test code = aPTT) 39.0 s 22.9-35.8 H [facility] HospitalKyjtvvtNEJRJEOXFC4881-73-40 04:28:00 Test Item Value Reference Range Interpretation Comments INR (test code = INR) 0.90 0.85-1.17 N [facility] HospitalRgyhogdMFGRMENELS1137-26-36 04:28:00 Test Item Value Reference Range Interpretation Comments MCH (test code = MCH) 29.4 pg 27.0-31.0 N [facility] HospitalHxereenLYVGFVLAJG2453-65-24 04:28:00 Test Item Value Reference Range Interpretation Comments MCV (test code = MCV) 86.1 81.0-99.0 N [facility] HospitalQflciadUAVSUWJYUI6545-80-33 04:28:00 Test Item Value Reference Range Interpretation Comments Hct (test code = Hct) 29.4 36.0-48.0 L [facility] HospitalQicwcndEZIINPDBVO1347-03-65 04:28:00 Test Item Value Reference Range Interpretation Comments RDW (test code = RDW) 14.0 11.5-14.5 N [facility] HospitalLvteegqXYDVVVADLK5928-26-22 04:28:00 Test Item Value Reference Range Interpretation Comments WBC X 10x3 (test code = WBC X 10x3) 6.2 3.7-10.4 N [facility] HospitalDyfaaekICIHGTYXCZ8263-45-43 04:28:00 Test Item Value Reference Range Interpretation Comments Platelet (test code = Platelet) 178 133-450 N [facility] HospitalWuncvpxUSGLKOXUQM4699-50-10 04:28:00 Test Item Value Reference Range Interpretation Comments MCHC (test code = MCHC) 34.1 32.0-36.0 N [facility] HospitalAslvdtaAVSVKZTMPC7181-30-71 04:28:00 Test Item Value Reference Range Interpretation Comments RBC X 10x6 (test code = RBC X 10x6) 3.41 4.20-5.40 L [facility] HospitalKnjobwhRMZTYHNGLR8137-44-32 04:28:00 Test Item Value Reference Range Interpretation Comments Hgb (test code = Hgb) 10.0 12.0-16.0 L [facility] HospitalIetgjqzTTJSHCCCYE2122-55-07 04:28:00 Test Item Value Reference Range Interpretation Comments MPV (test code = MPV) 10.1 7.4-10.4 N [facility] HospitalUzvurnwGUJWCZGCSG3526-43-67 04:28:00 Test Item Value Reference Range Interpretation Comments Segs-Bands # (test code = Segs-Bands #) 4.4 1.5-8.1 N [facility] HospitalRlncasbERSZEQVTIB5016-47-81 04:28:00 Test Item Value Reference Range Interpretation Comments Basophils (test code = 0.7 See_Comment N [Aut omated message] The Basophils) system which ge nerated this result tra nsmitted reference range : <=1.0. The reference r leo was not used to int erpret this result as normal/abnormal . [facility] HospitalBtdlsgxSOEUQEFLGO3160-87-34 04:28:00 Test Item Value Reference Range Interpretation Comments Segs (test code = Segs) 70.7 45.0-75.0 N [facility] HospitalHwadscnDMZVGKXWCT5545-79-71 04:28:00 Test Item Value Reference Range Interpretation Comments Monocytes # (test code 0.3 See_Comment N [Aut omated message] The = Monocytes #) system which generated this result tra nsmitted reference range : <=0.8. The reference r leo was not used to int erpret this result as normal/abnormal . [facility] HospitalKvtxpumKETUANCAPM3641-50-34 04:28:00 Test Item Value Reference Range Interpretation Comments Lymphocytes # (test code = Lymphocytes 1.2 1.0-5.5 N #) [facility] HospitalWjprcwgCAXBOEUNDP6964-15-25 04:28:00 Test Item Value Reference Range Interpretation Comments Monocytes (test code = Monocytes) 4.5 2.0-12.0 N [facility] HospitalWhozwhpIMJMDZWEXO9589-90-83 04:28:00 Test Item Value Reference Range Interpretation Comments Eosinophils (test code = 4.1 See_Comment H [A utomated message] The Eosinophils) system which ge nerated this result tra nsmitted reference range : <=4.0. The reference r leo was not used to int erpret this result as normal/abnormal . [facility] HospitalWhcarlgNBXGYWUZZK1209-29-72 04:28:00 Test Item Value Reference Range Interpretation Comments Lymphocytes (test code = Lymphocytes) 20.0 20.0-40.0 N [facility] HospitalGhidhwlBNTCUBUNRH1882-24-06 04:28:00 Test Item Value Reference Range Interpretation Comments Basophils # (test code 0.0 See_Comment N [Aut omated message] The = Basophils #) system which generated this result tra nsmitted reference range : <=0.2. The reference r leo was not used to int erpret this result as normal/abnormal . [facility] HospitalJlvylpaHFPFBTJJVL3430-35-39 04:28:00 Test Item Value Reference Range Interpretation Comments Eosinophils # (test code 0.3 See_Comment N [A utomated message] The = Eosinophils #) system whic h generated this result tra nsmitted reference range : <=0.5. The reference r leo was not used to int erpret this result as normal/abnormal . [facility]LqjookmLTTDSJCTV7394-61-20 04:28:00 Test Item Value Reference Range Interpretation Comments S Preg (test code = S Negative *NA*(04/14/2013 Preg) 23:28:00) [facility] CenterHemcwevKPLDHSGXA2009-60-61 04:28:00 Test Item Value Reference Range Interpretation Comments Lipase Lvl (test code = Lipase Lvl) 233 73-393 N [facility] CenterVvudchvYSLVCFQXX5054-61-08 04:28:00 Test Item Value Reference Range Interpretation Comments Globulin (test code = Globulin) 4.1 2.0-4.0 H [facility] CenterMkfyrvtHVXMAGOZX0637-43-77 04:28:00 Test Item Value Reference Range Interpretation Comments AGAP (test code = AGAP) 10.5 10.0-20.0 N [facility] CenterDgnjtueQTZKBXTWD6459-51-03 04:28:00 Test Item Value Reference Range Interpretation Comments B/C Ratio (test code = B/C Ratio) 6 6-25 N [facility] CenterSqakdwzANWTIZBFG7285-25-48 04:28:00 Test Item Value Reference Range Interpretation Comments A/G Ratio (test code = A/G Ratio) 0.7 0.7-1.6 N [facility] CenterEpukavyFKMDLHWWK2185-71-47 04:28:00 Test Item Value Reference Range Interpretation Comments eGFR (test code = eGFR) 130 [facility] CenterKsybagjMKHIKABOX0944-05-25 04:28:00 Test Item Value Reference Range Interpretation Comments Albumin Lvl (test code = Albumin Lvl) 2.9 3.5-5.0 L [facility] CenterVupdqdmXHYTIOTVP1705-94-99 04:28:00 Test Item Value Reference Range Interpretation Comments ASPARTATE TRANSAMINASE 20 See_Comment N [Aut omated message] (test code = ASPARTATE The s ystem which TRANSAMINASE) generated this result transmitted ref erence range: <=37. Th e reference range was not used to interpr et this result as normal/abnormal . [facility] CenterRaererhCUCVTBGID7101-02-51 04:28:00 Test Item Value Reference Range Interpretation Comments Bili Total (test code = Bili Total) 0.5 0.2-1.3 N [facility] CenterJtrjzvzBMGVPTTOB4869-41-84 04:28:00 Test Item Value Reference Range Interpretation Comments Alk Phos (test code = Alk Phos) 89 39-136 N [facility] CenterUifknxdMWGEDNODA0404-80-17 04:28:00 Test Item Value Reference Range Interpretation Comments ALANINE AMINOTRANSFERASE 11 See_Comment N [A utomated message] (test code = ALANINE The sys tem which AMINOTRANSFERASE) generated this result transmitted ref erence range: <=65. Th e reference range was not used to int erpret this result as normal/abnormal . [facility] CenterGdjaxwbQLVEVMUFI1383-27-68 04:28:00 Test Item Value Reference Range Interpretation Comments Creatinine Lvl (test code = Creatinine 0.5 0.5-1.4 N Lvl) [facility] CenterRutctlpERMXMZWPV2456-96-21 04:28:00 Test Item Value Reference Range Interpretation Comments BUN (test code = BUN) 3 7-22 L [facility]JrjmzhkAWPPDDMYJ9744-04-67 04:28:00 Test Item Value Reference Range Interpretation Comments Glucose Lvl (test code = Glucose Lvl) 255 70-99 H [facility] CenterXeshxgpMVXHUOXLC7693-33-96 04:28:00 Test Item Value Reference Range Interpretation Comments Total Protein (test code = Total 7.0 6.4-8.4 N Protein) [facility] CenterXmninvpRFWKHVXUG7791-26-71 04:28:00 Test Item Value Reference Range Interpretation Comments Calcium Lvl (test code = Calcium Lvl) 8.7 8.5-10.5 N [facility] CenterMnhqmdcWDTIDCJOC7402-20-95 04:28:00 Test Item Value Reference Range Interpretation Comments CO2 (test code = CO2) 29 24-32 N [facility] CenterYbeytyrHPNUUJXXE4446-58-14 04:28:00 Test Item Value Reference Range Interpretation Comments Chloride Lvl (test code = Chloride Lvl) 104 95-109 N [facility] CenterVaybdapKVJDAUTDQ9324-53-63 04:28:00 Test Item Value Reference Range Interpretation Comments Potassium Lvl (test code = Potassium 3.5 3.5-5.1 N Lvl) [facility] CenterRinyjbfKXWYNOPXC2576-65-84 04:28:00 Test Item Value Reference Range Interpretation Comments Sodium Lvl (test code = Sodium Lvl) 140 135-145 N [facility] HospitalPmgtjrlCIREKOXKTS4753-89-26 04:28:00 Test Item Value Reference Range Interpretation Comments PROTIME (test code = PROTIME) 12.1 s 12.0-14.7 N [facility] HospitalOrgltcgUNDPHFASPZ2338-41-64 04:28:00 Test Item Value Reference Range Interpretation Comments aPTT (test code = aPTT) 39.0 s 22.9-35.8 H [facility] HospitalPqzxdgpVURXUGYVLS6288-48-85 04:28:00 Test Item Value Reference Range Interpretation Comments INR (test code = INR) 0.90 0.85-1.17 N [facility] HospitalXnejzkvSNYCDIOHOO4742-12-04 04:28:00 Test Item Value Reference Range Interpretation Comments MCH (test code = MCH) 29.4 pg 27.0-31.0 N [facility] HospitalTrdsygiSRMGSSFMZO5496-07-13 04:28:00 Test Item Value Reference Range Interpretation Comments MCV (test code = MCV) 86.1 81.0-99.0 N [facility] HospitalDfnefhrFLGLEPZYLQ8780-72-65 04:28:00 Test Item Value Reference Range Interpretation Comments Hct (test code = Hct) 29.4 36.0-48.0 L [facility] HospitalIgjmocjOXCFXQFVZX5200-07-08 04:28:00 Test Item Value Reference Range Interpretation Comments RDW (test code = RDW) 14.0 11.5-14.5 N [facility] HospitalEzjezunMSUSMQNBPP4836-26-01 04:28:00 Test Item Value Reference Range Interpretation Comments WBC X 10x3 (test code = WBC X 10x3) 6.2 3.7-10.4 N [facility] HospitalMjoiivaAVHCMCQCIO1237-44-36 04:28:00 Test Item Value Reference Range Interpretation Comments Platelet (test code = Platelet) 178 133-450 N [facility] HospitalHymsfsxFTFLRVJXGR2002-52-86 04:28:00 Test Item Value Reference Range Interpretation Comments MCHC (test code = MCHC) 34.1 32.0-36.0 N [facility] HospitalVbrfpxgZEYGYQYUST8977-75-75 04:28:00 Test Item Value Reference Range Interpretation Comments RBC X 10x6 (test code = RBC X 10x6) 3.41 4.20-5.40 L [facility] HospitalJcgmxahFSAMKAQONV6000-68-26 04:28:00 Test Item Value Reference Range Interpretation Comments Hgb (test code = Hgb) 10.0 12.0-16.0 L [facility] HospitalKizlksnOJFVUDPCLE6123-44-36 04:28:00 Test Item Value Reference Range Interpretation Comments MPV (test code = MPV) 10.1 7.4-10.4 N [facility] HospitalQcgxtquIAGHDCCGCK4152-16-75 04:28:00 Test Item Value Reference Range Interpretation Comments Segs-Bands # (test code = Segs-Bands #) 4.4 1.5-8.1 N [facility] HospitalNsancqvWHQLLRFFSX6433-37-58 04:28:00 Test Item Value Reference Range Interpretation Comments Basophils (test code = 0.7 See_Comment N [Aut omated message] The Basophils) system which ge nerated this result tra nsmitted reference range : <=1.0. The reference r leo was not used to int erpret this result as normal/abnormal . [facility] HospitalDbwthpzGKKHLSSSYI7631-31-41 04:28:00 Test Item Value Reference Range Interpretation Comments Segs (test code = Segs) 70.7 45.0-75.0 N [facility] HospitalHkhlqioHVXURCDUCF8754-11-32 04:28:00 Test Item Value Reference Range Interpretation Comments Monocytes # (test code 0.3 See_Comment N [Aut omated message] The = Monocytes #) system which generated this result tra nsmitted reference range : <=0.8. The reference r leo was not used to int erpret this result as normal/abnormal . [facility] HospitalIytaydiKDKJYWNKMJ6249-17-72 04:28:00 Test Item Value Reference Range Interpretation Comments Lymphocytes # (test code = Lymphocytes 1.2 1.0-5.5 N #) [facility] HospitalTljmupsXPTCEGLKCI7415-10-99 04:28:00 Test Item Value Reference Range Interpretation Comments Monocytes (test code = Monocytes) 4.5 2.0-12.0 N [facility] HospitalLmxijyzWOZYHMJDHU3033-14-54 04:28:00 Test Item Value Reference Range Interpretation Comments Eosinophils (test code = 4.1 See_Comment H [A utomated message] The Eosinophils) system which ge nerated this result tra nsmitted reference range : <=4.0. The reference r leo was not used to int erpret this result as normal/abnormal . [facility] HospitalKrksbadZPBAETABFE5623-31-55 04:28:00 Test Item Value Reference Range Interpretation Comments Lymphocytes (test code = Lymphocytes) 20.0 20.0-40.0 N [facility] HospitalExwjrauSHPWADIVBL7134-58-40 04:28:00 Test Item Value Reference Range Interpretation Comments Basophils # (test code 0.0 See_Comment N [Aut omated message] The = Basophils #) system which generated this result tra nsmitted reference range : <=0.2. The reference r leo was not used to int erpret this result as normal/abnormal . [facility] HospitalFdtrucvQPBJMXTMUA9328-52-21 04:28:00 Test Item Value Reference Range Interpretation Comments Eosinophils # (test code 0.3 See_Comment N [A utomated message] The = Eosinophils #) system whic h generated this result tra nsmitted reference range : <=0.5. The reference r leo was not used to int erpret this result as normal/abnormal . [facility] CenterGuhadpuVHQZSZUNM9387-75-84 04:28:00 Test Item Value Reference Range Interpretation Comments S Preg (test code = S Negative *NA*(04/14/2013 Preg) 23:28:00) [facility] CenterQkrcdhmSCJZCNATU1665-17-19 04:28:00 Test Item Value Reference Range Interpretation Comments Lipase Lvl (test code = Lipase Lvl) 233 73-393 N [facility] CenterAapchldDFFDISADC0909-84-53 04:28:00 Test Item Value Reference Range Interpretation Comments Globulin (test code = Globulin) 4.1 2.0-4.0 H [facility] CenterNhwgsgaADKKIFYTJ2665-20-87 04:28:00 Test Item Value Reference Range Interpretation Comments AGAP (test code = AGAP) 10.5 10.0-20.0 N [facility] CenterJdmoncuTCZMQGPUY6588-07-35 04:28:00 Test Item Value Reference Range Interpretation Comments B/C Ratio (test code = B/C Ratio) 6 6-25 N [facility] CenterKcoagteOUZRHQDTF5569-16-86 04:28:00 Test Item Value Reference Range Interpretation Comments A/G Ratio (test code = A/G Ratio) 0.7 0.7-1.6 N [facility] CenterNwqqlncPIUMVAUMY2012-73-48 04:28:00 Test Item Value Reference Range Interpretation Comments eGFR (test code = eGFR) 130 [facility] CenterWynqbsmCRJVZKEXD9026-44-76 04:28:00 Test Item Value Reference Range Interpretation Comments Albumin Lvl (test code = Albumin Lvl) 2.9 3.5-5.0 L [facility] CenterDcenlooMSSFMAIMG9918-83-52 04:28:00 Test Item Value Reference Range Interpretation Comments ASPARTATE TRANSAMINASE 20 See_Comment N [Aut omated message] (test code = ASPARTATE The s ystem which TRANSAMINASE) generated this result transmitted ref erence range: <=37. Th e reference range was not used to interpr et this result as normal/abnormal . [facility] CenterEnkdeplQWLVOULUD1817-12-79 04:28:00 Test Item Value Reference Range Interpretation Comments Bili Total (test code = Bili Total) 0.5 0.2-1.3 N [facility] CenterWvjfquhNASRMWHHG8687-86-97 04:28:00 Test Item Value Reference Range Interpretation Comments Alk Phos (test code = Alk Phos) 89 39-136 N [facility] CenterVvmtpaiIXZDPCEYQ0955-39-58 04:28:00 Test Item Value Reference Range Interpretation Comments ALANINE AMINOTRANSFERASE 11 See_Comment N [A utomated message] (test code = ALANINE The sys tem which AMINOTRANSFERASE) generated this result transmitted ref erence range: <=65. Th e reference range was not used to int erpret this result as normal/abnormal . [facility] CenterWatfilvYDMXCVMVX3129-61-02 04:28:00 Test Item Value Reference Range Interpretation Comments Creatinine Lvl (test code = Creatinine 0.5 0.5-1.4 N Lvl) [facility] CenterThzboqeUGBFUMJHV8180-98-07 04:28:00 Test Item Value Reference Range Interpretation Comments BUN (test code = BUN) 3 7-22 L [facility] CenterTdxbkywFMTYRISFR9018-08-24 04:28:00 Test Item Value Reference Range Interpretation Comments Glucose Lvl (test code = Glucose Lvl) 255 70-99 H [facility] CenterLdpcwptRDGKSKRMS7353-17-01 04:28:00 Test Item Value Reference Range Interpretation Comments Total Protein (test code = Total 7.0 6.4-8.4 N Protein) [facility] CenterImvfrgzIXAXXUXOR6520-55-90 04:28:00 Test Item Value Reference Range Interpretation Comments Calcium Lvl (test code = Calcium Lvl) 8.7 8.5-10.5 N [facility] CenterCowedsvCAALHLXBU4149-09-59 04:28:00 Test Item Value Reference Range Interpretation Comments CO2 (test code = CO2) 29 24-32 N [facility] CenterVtiucceFEBAGOWAO9072-33-61 04:28:00 Test Item Value Reference Range Interpretation Comments Chloride Lvl (test code = Chloride Lvl) 104 95-109 N [facility] CenterGdewwbiSRPULANIX6927-41-04 04:28:00 Test Item Value Reference Range Interpretation Comments Potassium Lvl (test code = Potassium 3.5 3.5-5.1 N Lvl) [facility] CenterOyqvlsdVGSMRXOFB1684-28-50 04:28:00 Test Item Value Reference Range Interpretation Comments Sodium Lvl (test code = Sodium Lvl) 140 135-145 N [facility] HospitalShuomiiXLCGUADDRL3399-85-28 04:28:00 Test Item Value Reference Range Interpretation Comments PROTIME (test code = PROTIME) 12.1 s 12.0-14.7 N [facility] HospitalZyefwooLAAUOUTZEE9103-65-30 04:28:00 Test Item Value Reference Range Interpretation Comments aPTT (test code = aPTT) 39.0 s 22.9-35.8 H [facility] HospitalSsowjjzTQYXPCMQNY6238-96-09 04:28:00 Test Item Value Reference Range Interpretation Comments INR (test code = INR) 0.90 0.85-1.17 N [facility] HospitalOmslrcgTHLVOFUENF3462-88-03 04:28:00 Test Item Value Reference Range Interpretation Comments MCH (test code = MCH) 29.4 pg 27.0-31.0 N [facility] HospitalXwfcyxzLFRWNHVCBH9024-44-25 04:28:00 Test Item Value Reference Range Interpretation Comments MCV (test code = MCV) 86.1 81.0-99.0 N [facility] HospitalCqcmgnhNVPQDXESCO8815-74-24 04:28:00 Test Item Value Reference Range Interpretation Comments Hct (test code = Hct) 29.4 36.0-48.0 L [facility] HospitalXinzrrsNLHLEXHFEB5176-60-98 04:28:00 Test Item Value Reference Range Interpretation Comments RDW (test code = RDW) 14.0 11.5-14.5 N [facility] HospitalLludnetSUCSIOGCTB2715-28-10 04:28:00 Test Item Value Reference Range Interpretation Comments WBC X 10x3 (test code = WBC X 10x3) 6.2 3.7-10.4 N [facility] HospitalYdjmvqdPUAQGKWBBZ6168-35-43 04:28:00 Test Item Value Reference Range Interpretation Comments Platelet (test code = Platelet) 178 133-450 N [facility] HospitalLqbzaxiYGWMIZWVMN2330-00-75 04:28:00 Test Item Value Reference Range Interpretation Comments MCHC (test code = MCHC) 34.1 32.0-36.0 N [facility] HospitalIpvfiifGNCAGHGFGU6722-36-33 04:28:00 Test Item Value Reference Range Interpretation Comments RBC X 10x6 (test code = RBC X 10x6) 3.41 4.20-5.40 L [facility] HospitalOrppdlmDGXSCTXAYG4698-35-31 04:28:00 Test Item Value Reference Range Interpretation Comments Hgb (test code = Hgb) 10.0 12.0-16.0 L [facility] HospitalGgsutseSTSPOFBGLW7625-95-14 04:28:00 Test Item Value Reference Range Interpretation Comments MPV (test code = MPV) 10.1 7.4-10.4 N [facility] HospitalLovfhboPJMYNDPDWE1922-05-86 04:28:00 Test Item Value Reference Range Interpretation Comments Segs-Bands # (test code = Segs-Bands #) 4.4 1.5-8.1 N [facility] HospitalAnjczlfFOMEMHXANN4564-51-19 04:28:00 Test Item Value Reference Range Interpretation Comments Basophils (test code = 0.7 See_Comment N [Aut omated message] The Basophils) system which ge nerated this result tra nsmitted reference range : <=1.0. The reference r leo was not used to int erpret this result as normal/abnormal . [facility] HospitalVflsljwQDXLCTXLKZ5613-33-57 04:28:00 Test Item Value Reference Range Interpretation Comments Segs (test code = Segs) 70.7 45.0-75.0 N [facility] HospitalOcjzrlhDHKIEJYVWP8645-48-25 04:28:00 Test Item Value Reference Range Interpretation Comments Monocytes # (test code 0.3 See_Comment N [Aut omated message] The = Monocytes #) system which generated this result tra nsmitted reference range : <=0.8. The reference r leo was not used to int erpret this result as normal/abnormal . [facility] HospitalEqrgpgvFMDKCXFQEO1940-00-97 04:28:00 Test Item Value Reference Range Interpretation Comments Lymphocytes # (test code = Lymphocytes 1.2 1.0-5.5 N #) [facility] HospitalAgqiydgEENSSRPVZY6245-78-41 04:28:00 Test Item Value Reference Range Interpretation Comments Monocytes (test code = Monocytes) 4.5 2.0-12.0 N [facility] HospitalWrbumglTANSQDVWBC0335-28-34 04:28:00 Test Item Value Reference Range Interpretation Comments Eosinophils (test code = 4.1 See_Comment H [A utomated message] The Eosinophils) system which ge nerated this result tra nsmitted reference range : <=4.0. The reference r leo was not used to int erpret this result as normal/abnormal . [facility] HospitalXdmfbwsLLWACODIIN4208-77-28 04:28:00 Test Item Value Reference Range Interpretation Comments Lymphocytes (test code = Lymphocytes) 20.0 20.0-40.0 N [facility] HospitalEgqdpqnJZSRCNKIED7588-60-39 04:28:00 Test Item Value Reference Range Interpretation Comments Basophils # (test code 0.0 See_Comment N [Aut omated message] The = Basophils #) system which generated this result tra nsmitted reference range : <=0.2. The reference r leo was not used to int erpret this result as normal/abnormal . [facility] HospitalEwllmpgYGFWDJMGIC6012-74-24 04:28:00 Test Item Value Reference Range Interpretation Comments Eosinophils # (test code 0.3 See_Comment N [A utomated message] The = Eosinophils #) system whic h generated this result tra nsmitted reference range : <=0.5. The reference r leo was not used to int erpret this result as normal/abnormal . [facility] GLUCOSE JCQYBXE6094-32-64 01:12:00 Test Item Value Reference Range Interpretation Comments Gluc POC Lifscn (test code = Gluc POC 260 70-99 H Lifscn) [facility] GLUCOSE MDBOCYA7291-98-48 01:12:00 Test Item Value Reference Range Interpretation Comments Comment1 (test code = Comment1) Notify RN/ [facility] GLUCOSE XQCCCOV9850-53-90 01:12:00 Test Item Value Reference Range Interpretation Comments Gluc POC Lifscn (test code = Gluc POC 260 70-99 H Lifscn) [facility] GLUCOSE SFGKCJL6136-03-36 01:12:00 Test Item Value Reference Range Interpretation Comments Comment1 (test code = Comment1) Notify RN/ [facility] GLUCOSE JVESVKA7717-48-42 01:12:00 Test Item Value Reference Range Interpretation Comments Gluc POC Lifscn (test code = Gluc POC 260 70-99 H Lifscn) [facility] GLUCOSE KDBPZCS9734-14-91 01:12:00 Test Item Value Reference Range Interpretation Comments Comment1 (test code = Comment1) Notify RN/ [facility] GLUCOSE ODXKTEB0888-17-05 01:12:00 Test Item Value Reference Range Interpretation Comments Gluc POC Lifscn (test code = Gluc POC 260 70-99 H Lifscn) [facility] GLUCOSE UUYQISK2655-26-84 01:12:00 Test Item Value Reference Range Interpretation Comments Comment1 (test code = Comment1) Notify TABATHA[facility]EuxcglyUEWTYNTMKU5686-20-68 23:40:00 Test Item Value Reference Range Interpretation Comments UA Protein (test code = Trace A UA Protein) *ABN*(03/14/2012 18:40:00) [facility] HospitalNbmsmgcDZPSOZCMHH0446-60-43 23:40:00 Test Item Value Reference Range Interpretation Comments UA pH (test code = UA pH) 6.0 1 5.0-8.0 N [facility] HospitalGxtfiqcTMSKASHYTN7806-08-41 23:40:00 Test Item Value Reference Range Interpretation Comments UA Ketones (test code = >=80 mg/dL UA Ketones) *NA*(03/14/2012 18:40:00) [facility]QyqwsgoNZQUMSGLOX6823-66-40 23:40:00 Test Item Value Reference Range Interpretation Comments UA Glucose (test code = >=1000 mg/dL A UA Glucose) *ABN*(03/14/2012 18:40:00) [facility] HospitalAekgcdrJWYAKDHDXR9254-05-96 23:40:00 Test Item Value Reference Range Interpretation Comments UA Blood (test code = Negative (03/14/2012 N UA Blood) 18:40:00) [facility] TexasPnxaggdXVISJPQHFJ0917-05-32 23:40:00 Test Item Value Reference Range Interpretation Comments UA Nitrite (test code Negative (03/14/2012 N = UA Nitrite) 18:40:00) [facility]IeleuuyNNXSYDXEZF9953-45-83 23:40:00 Test Item Value Reference Range Interpretation Comments UA Urobilinogen (test code = UA 0.2 0.1-1.0 N Urobilinogen) [facility] CenterXgfdrcaDCASLJXLIZ7395-31-42 23:40:00 Test Item Value Reference Range Interpretation Comments UA Leuk Est (test Negative (03/14/2012 N code = UA Leuk Est) 18:40:00) [facility] CenterCiaincjRCEJQXHECU5407-77-28 23:40:00 Test Item Value Reference Range Interpretation Comments UA Bili (test code = Negative *NA*(03/14/2012 UA Bili) 18:40:00) [facility] CenterKxxnpzoMHWGCOLNFJ9982-44-45 23:40:00 Test Item Value Reference Range Interpretation Comments UA Turbidity (test code = Clear (03/14/2012 N UA Turbidity) 18:40:00) [facility] CenterIlldzkzQJKZMUMVYN6190-25-38 23:40:00 Test Item Value Reference Range Interpretation Comments UA Color (test code = Yellow *NA*(03/14/2012 UA Color) 18:40:00) [facility] CenterXqxxlovDILWRNWEFC5609-39-66 23:40:00 Test Item Value Reference Range Interpretation Comments UA Spec Grav (test >=1.030 A code = UA Spec Grav) *ABN*(03/14/2012 18:40:00) [facility] CenterEemtaayCVDOCPCJOH4794-34-65 23:40:00 Test Item Value Reference Range Interpretation Comments UA Sq Epi (test code Occasional /LPF N = UA Sq Epi) (03/14/2012 18:40:00) [facility] CenterRsbzylgWVTSIFKHMT6864-58-76 23:40:00 Test Item Value Reference Range Interpretation Comments UA WBC (test code = UA 3-5 /HPF (03/14/2012 N WBC) 18:40:00) [facility] CenterXkqnfuzYBGYJYMKFH7755-45-97 23:40:00 Test Item Value Reference Range Interpretation Comments UA Bacteria (test code Occasional /HPF N = UA Bacteria) (03/14/2012 18:40:00) [facility] CenterLlphkhuECRIXBKUOL8809-29-00 23:40:00 Test Item Value Reference Range Interpretation Comments UA Protein (test code = Trace A UA Protein) *ABN*(03/14/2012 18:40:00) [facility] CenterKkrancxWWDAATIJPP3370-65-34 23:40:00 Test Item Value Reference Range Interpretation Comments UA pH (test code = UA pH) 6.0 1 5.0-8.0 N [facility] CenterWdvffjjOAFDSMQSQR3373-92-85 23:40:00 Test Item Value Reference Range Interpretation Comments UA Ketones (test code = >=80 mg/dL UA Ketones) *NA*(03/14/2012 18:40:00) [facility]JoppslwYVPYDNSYXE2297-70-86 23:40:00 Test Item Value Reference Range Interpretation Comments UA Glucose (test code = >=1000 mg/dL A UA Glucose) *ABN*(03/14/2012 18:40:00) [facility] CenterYhfuqdfKJIUYZBRWY7524-23-12 23:40:00 Test Item Value Reference Range Interpretation Comments UA Blood (test code = Negative (03/14/2012 N UA Blood) 18:40:00) [facility] CenterMbzybahYZTEUIYNAK0352-07-23 23:40:00 Test Item Value Reference Range Interpretation Comments UA Nitrite (test code Negative (03/14/2012 N = UA Nitrite) 18:40:00) [facility] CenterBqhhrurBCWQJCUJLO0146-11-77 23:40:00 Test Item Value Reference Range Interpretation Comments UA Urobilinogen (test code = UA 0.2 0.1-1.0 N Urobilinogen) [facility] CenterAqaibdnXSPXOXMDKT1637-89-88 23:40:00 Test Item Value Reference Range Interpretation Comments UA Leuk Est (test Negative (03/14/2012 N code = UA Leuk Est) 18:40:00) [facility] CenterOwdikgaFICQAVACHN7244-52-71 23:40:00 Test Item Value Reference Range Interpretation Comments UA Bili (test code = Negative *NA*(03/14/2012 UA Bili) 18:40:00) [facility] CenterSnlpnueWOSTDTTFKI6906-97-68 23:40:00 Test Item Value Reference Range Interpretation Comments UA Turbidity (test code = Clear (03/14/2012 N UA Turbidity) 18:40:00) [facility] CenterDqgwynnNNUYEDGYTD4351-62-21 23:40:00 Test Item Value Reference Range Interpretation Comments UA Color (test code = Yellow *NA*(03/14/2012 UA Color) 18:40:00) [facility] CenterIwlrhtpBCWTFSTVWJ6855-96-82 23:40:00 Test Item Value Reference Range Interpretation Comments UA Spec Grav (test >=1.030 A code = UA Spec Grav) *ABN*(03/14/2012 18:40:00) [facility] CenterFvfutnrHTZYHCIFEY7855-29-40 23:40:00 Test Item Value Reference Range Interpretation Comments UA Sq Epi (test code Occasional /LPF N = UA Sq Epi) (03/14/2012 18:40:00) [facility] CenterOunbcxoJHLOIYBCCZ6389-55-32 23:40:00 Test Item Value Reference Range Interpretation Comments UA WBC (test code = UA 3-5 /HPF (03/14/2012 N WBC) 18:40:00) [facility] CenterRtsntyzYWPFTOGLGF1345-82-09 23:40:00 Test Item Value Reference Range Interpretation Comments UA Bacteria (test code Occasional /HPF N = UA Bacteria) (03/14/2012 18:40:00) [facility] CenterZackpesCPRVPLFUIG5740-19-65 23:40:00 Test Item Value Reference Range Interpretation Comments UA Protein (test code = Trace A UA Protein) *ABN*(03/14/2012 18:40:00) [facility] CenterHycaxeeNPZPNUOICM5690-89-53 23:40:00 Test Item Value Reference Range Interpretation Comments UA pH (test code = UA pH) 6.0 1 5.0-8.0 N [facility] CenterUgztownFLXRHEELVU8199-18-09 23:40:00 Test Item Value Reference Range Interpretation Comments UA Ketones (test code = >=80 mg/dL UA Ketones) *NA*(03/14/2012 18:40:00) [facility] CenterTdkntztNZEXTNAHAT5140-80-32 23:40:00 Test Item Value Reference Range Interpretation Comments UA Glucose (test code = >=1000 mg/dL A UA Glucose) *ABN*(03/14/2012 18:40:00) [facility] CenterZuflireMQLEZAMQKW6593-22-05 23:40:00 Test Item Value Reference Range Interpretation Comments UA Blood (test code = Negative (03/14/2012 N UA Blood) 18:40:00) [facility] CenterXhqfkebNWBUANFPYX1729-59-83 23:40:00 Test Item Value Reference Range Interpretation Comments UA Nitrite (test code Negative (03/14/2012 N = UA Nitrite) 18:40:00) [facility]TvppdjvPHIDUUYYWX4415-01-45 23:40:00 Test Item Value Reference Range Interpretation Comments UA Urobilinogen (test code = UA 0.2 0.1-1.0 N Urobilinogen) [facility] HospitalGrfpsujDDZFYIMCQI7898-64-83 23:40:00 Test Item Value Reference Range Interpretation Comments UA Leuk Est (test Negative (03/14/2012 N code = UA Leuk Est) 18:40:00) [facility]QidqjocDNZBKFXPYU2143-03-88 23:40:00 Test Item Value Reference Range Interpretation Comments UA Bili (test code = Negative *NA*(03/14/2012 UA Bili) 18:40:00) [facility] CenterBhuwlohMOLRVRLENK5332-45-13 23:40:00 Test Item Value Reference Range Interpretation Comments UA Turbidity (test code = Clear (03/14/2012 N UA Turbidity) 18:40:00) [facility] HospitalXexnhjsWZJGFXKSZJ9814-14-60 23:40:00 Test Item Value Reference Range Interpretation Comments UA Color (test code = Yellow *NA*(03/14/2012 UA Color) 18:40:00) [facility] HospitalWzecnzlZBDVENWSYB0227-70-62 23:40:00 Test Item Value Reference Range Interpretation Comments UA Spec Grav (test >=1.030 A code = UA Spec Grav) *ABN*(03/14/2012 18:40:00) [facility] HospitalGvctljhCPJTCONGFP7070-95-83 23:40:00 Test Item Value Reference Range Interpretation Comments UA Sq Epi (test code Occasional /LPF N = UA Sq Epi) (03/14/2012 18:40:00) [facility] HospitalOjeimsbPJENLRUCPW5694-34-36 23:40:00 Test Item Value Reference Range Interpretation Comments UA WBC (test code = UA 3-5 /HPF (03/14/2012 N WBC) 18:40:00) [facility] HospitalNtwijyqOTABDAHAVA3603-29-62 23:40:00 Test Item Value Reference Range Interpretation Comments UA Bacteria (test code Occasional /HPF N = UA Bacteria) (03/14/2012 18:40:00) [facility] CenterRkpewvpVMGVPXMJCF0575-20-15 23:40:00 Test Item Value Reference Range Interpretation Comments UA Protein (test code = Trace A UA Protein) *ABN*(03/14/2012 18:40:00) [facility] CenterNbrvgpuPZDXERLRUO0827-14-67 23:40:00 Test Item Value Reference Range Interpretation Comments UA pH (test code = UA pH) 6.0 1 5.0-8.0 N [facility] CenterRepqjspYPAZSFMOUO4399-66-44 23:40:00 Test Item Value Reference Range Interpretation Comments UA Ketones (test code = >=80 mg/dL UA Ketones) *NA*(03/14/2012 18:40:00) [facility] CenterOgqiqqkBAQFACFSKL6007-64-98 23:40:00 Test Item Value Reference Range Interpretation Comments UA Glucose (test code = >=1000 mg/dL A UA Glucose) *ABN*(03/14/2012 18:40:00) [facility] CenterOsyfoqlQRMIVJMSTE5776-80-16 23:40:00 Test Item Value Reference Range Interpretation Comments UA Blood (test code = Negative (03/14/2012 N UA Blood) 18:40:00) [facility] CenterHqdqmcyHIYXBATEOJ7893-54-35 23:40:00 Test Item Value Reference Range Interpretation Comments UA Nitrite (test code Negative (03/14/2012 N = UA Nitrite) 18:40:00) [facility] CenterZxwrasmQLXDFIUNSM5472-24-02 23:40:00 Test Item Value Reference Range Interpretation Comments UA Urobilinogen (test code = UA 0.2 0.1-1.0 N Urobilinogen) [facility] CenterHtnnfrhHGPPKJQOZD9667-22-52 23:40:00 Test Item Value Reference Range Interpretation Comments UA Leuk Est (test Negative (03/14/2012 N code = UA Leuk Est) 18:40:00) [facility] CenterEymeuicMGPIBSOSZL7638-34-06 23:40:00 Test Item Value Reference Range Interpretation Comments UA Bili (test code = Negative *NA*(03/14/2012 UA Bili) 18:40:00) [facility] CenterPrdjudxKBKMSGFRCP3031-91-72 23:40:00 Test Item Value Reference Range Interpretation Comments UA Turbidity (test code = Clear (03/14/2012 N UA Turbidity) 18:40:00) [facility] CenterTeccglpQMLJREDWJW7446-28-15 23:40:00 Test Item Value Reference Range Interpretation Comments UA Color (test code = Yellow *NA*(03/14/2012 UA Color) 18:40:00) [facility] CenterXrkqcjdEKJVOWYADZ7795-95-29 23:40:00 Test Item Value Reference Range Interpretation Comments UA Spec Grav (test >=1.030 A code = UA Spec Grav) *ABN*(03/14/2012 18:40:00) [facility] CenterMunzvmvNDQCPZREKX5126-94-80 23:40:00 Test Item Value Reference Range Interpretation Comments UA Sq Epi (test code Occasional /LPF N = UA Sq Epi) (03/14/2012 18:40:00) [facility] CenterJuksuvtUMIWBQSVHD3635-50-52 23:40:00 Test Item Value Reference Range Interpretation Comments UA WBC (test code = UA 3-5 /HPF (03/14/2012 N WBC) 18:40:00) [facility] CenterWhrmkgjWECFGNXZNM2042-62-63 23:40:00 Test Item Value Reference Range Interpretation Comments UA Bacteria (test code Occasional /HPF N = UA Bacteria) (03/14/2012 18:40:00) [facility] CenterDjinngtIKXZCUNSE1233-25-11 22:50:00 Test Item Value Reference Range Interpretation Comments S Preg (test code = S Negative *NA*(03/14/2012 Preg) 17:50:00) [facility] CenterBqcpgzuQEGYKEYFG9725-66-74 22:50:00 Test Item Value Reference Range Interpretation Comments Lipase Lvl (test code = Lipase Lvl) 45 73-393 L [facility] CenterXuchbydHWHFQMVLA2869-86-28 22:50:00 Test Item Value Reference Range Interpretation Comments A/G Ratio (test code = A/G Ratio) 1.2 0.7-1.6 N [facility] CenterPsmprvoYTCVBSZTM1555-26-32 22:50:00 Test Item Value Reference Range Interpretation Comments Globulin (test code = Globulin) 3.8 2.0-4.0 N [facility] CenterUkfaurtIMAHANDLD2738-10-91 22:50:00 Test Item Value Reference Range Interpretation Comments B/C Ratio (test code = B/C Ratio) 21 6-25 N [facility] CenterTmzfelnHWUYDTRTT3768-58-35 22:50:00 Test Item Value Reference Range Interpretation Comments AGAP (test code = AGAP) 16.8 10.0-20.0 N [facility] CenterVxqazwyPEUAHYEND1621-85-93 22:50:00 Test Item Value Reference Range Interpretation Comments Bili Total (test code = Bili Total) 1.1 0.2-1.3 N [facility] CenterVencnqbJQAQHNWUT3629-87-10 22:50:00 Test Item Value Reference Range Interpretation Comments Total Protein (test code = Total 8.2 6.4-8.4 N Protein) [facility] CenterWzfdgerJYXUHDPSR0054-93-43 22:50:00 Test Item Value Reference Range Interpretation Comments Potassium Lvl (test code = Potassium 3.8 3.5-5.1 N Lvl) [facility] CenterKbozpixKGRZMBHMP5216-00-66 22:50:00 Test Item Value Reference Range Interpretation Comments Creatinine Lvl (test code = Creatinine 0.7 0.5-1.4 N Lvl) [facility] CenterMjzquygSMMHUKCBG2417-79-66 22:50:00 Test Item Value Reference Range Interpretation Comments Sodium Lvl (test code = Sodium Lvl) 139 135-145 N [facility] CenterWmatjdoFPQZOVOMO0212-62-49 22:50:00 Test Item Value Reference Range Interpretation Comments Chloride Lvl (test code = Chloride Lvl) 99 95-109 N [facility] CenterTcvmfnyKMULXEDLS0409-13-75 22:50:00 Test Item Value Reference Range Interpretation Comments CO2 (test code = CO2) 27 24-32 N [facility] CenterOoclrhgXFCOJERDO2824-19-46 22:50:00 Test Item Value Reference Range Interpretation Comments Glucose Lvl (test code = Glucose Lvl) 301 70-99 H [facility] CenterUqtqnzeIUMGCJTLX1229-42-53 22:50:00 Test Item Value Reference Range Interpretation Comments BUN (test code = BUN) 15 7-22 N [facility] CenterVihacgvRBSNVBGUD0233-02-43 22:50:00 Test Item Value Reference Range Interpretation Comments ALT (test code = ALT) 24 See_Comment N [Auto mated message] The system which ge nerated this result transmit rohit reference range : <=65. The reference range was not used to interpr et this result as reji l/abnormal. [facility] CenterQizoexuXQJHZNATU9726-10-69 22:50:00 Test Item Value Reference Range Interpretation Comments AST (test code = AST) 20 See_Comment N [Auto mated message] The system which ge nerated this result transmit rohit reference range : <=37. The reference range was not used to interpr et this result as reji l/abnormal. [facility] CenterXdjqlxiTBSMQUEPF2668-16-73 22:50:00 Test Item Value Reference Range Interpretation Comments Alk Phos (test code = Alk Phos) 67 39-136 N [facility] CenterLepiphoULKHHGGTO6857-64-43 22:50:00 Test Item Value Reference Range Interpretation Comments Albumin Lvl (test code = Albumin Lvl) 4.4 3.5-5.0 N [facility] CenterWtoiybsFSHQZSVXF7338-40-03 22:50:00 Test Item Value Reference Range Interpretation Comments Calcium Lvl (test code = Calcium Lvl) 9.9 8.5-10.5 N [facility] HospitalXesdpevOKDZTXUYWX3101-85-64 22:50:00 Test Item Value Reference Range Interpretation Comments MPV (test code = MPV) 11.8 7.4-10.4 H [facility] HospitalZuvhqovNXZQTAJIXD5564-19-38 22:50:00 Test Item Value Reference Range Interpretation Comments MCHC (test code = MCHC) 35.9 32.0-36.0 N [facility] HospitalWsbcnskDLLGNOKDFA8647-12-01 22:50:00 Test Item Value Reference Range Interpretation Comments MCH (test code = MCH) 31.2 pg 27.0-31.0 H [facility] HospitalWkgchlxHUORYDZCYE2906-89-59 22:50:00 Test Item Value Reference Range Interpretation Comments Platelet (test code = Platelet) 189 133-450 N [facility] HospitalZuprsfpVWIKWLZNYM2443-31-22 22:50:00 Test Item Value Reference Range Interpretation Comments RDW (test code = RDW) 13.1 11.5-14.5 N [facility] HospitalPojarulYKYYPKHZKT5261-81-64 22:50:00 Test Item Value Reference Range Interpretation Comments Hct (test code = Hct) 40.7 36.0-48.0 N [facility] HospitalWtercgrZRBPQMURXK1364-25-10 22:50:00 Test Item Value Reference Range Interpretation Comments Hgb (test code = Hgb) 14.6 12.0-16.0 N [facility] HospitalNaeuklkNJBYRKZBQG9510-90-81 22:50:00 Test Item Value Reference Range Interpretation Comments MCV (test code = MCV) 87.0 81.0-99.0 N [facility] HospitalLjslxwwXPFKLEMIDL9413-58-73 22:50:00 Test Item Value Reference Range Interpretation Comments WBC (test code = WBC) 11.7 3.7-10.4 H [facility] HospitalVmrypwrUAZRQJGVJR3188-43-41 22:50:00 Test Item Value Reference Range Interpretation Comments RBC (test code = RBC) 4.68 4.20-5.40 N [facility] HospitalTvkmyipZPXYMVSEKT5777-25-97 22:50:00 Test Item Value Reference Range Interpretation Comments Basophils # (test code 0.0 See_Comment N [Aut omated message] The = Basophils #) system which generated this result tra nsmitted reference range : <=0.2. The reference r leo was not used to int erpret this result as normal/abnormal . [facility] HospitalNjdubkePVPMDSIDZL7218-13-26 22:50:00 Test Item Value Reference Range Interpretation Comments Basophils (test code = 0.2 See_Comment N [Aut omated message] The Basophils) system which ge nerated this result tra nsmitted reference range : <=1.0. The reference r leo was not used to int erpret this result as normal/abnormal . [facility] HospitalHmzenxkCVDGVOJONW0324-70-27 22:50:00 Test Item Value Reference Range Interpretation Comments Eosinophils # (test code 0.0 See_Comment N [A utomated message] The = Eosinophils #) system whic h generated this result tra nsmitted reference range : <=0.5. The reference r leo was not used to int erpret this result as normal/abnormal . [facility] HospitalDvxuadaTILCVZUSCK2002-59-15 22:50:00 Test Item Value Reference Range Interpretation Comments Monocytes # (test code 0.4 See_Comment N [Aut omated message] The = Monocytes #) system which generated this result tra nsmitted reference range : <=0.8. The reference r leo was not used to int erpret this result as normal/abnormal . [facility] HospitalFvzwjnnKBVTSDKUKH7610-73-49 22:50:00 Test Item Value Reference Range Interpretation Comments Segs-Bands # (test code = Segs-Bands #) 10.6 1.5-8.1 H [facility] HospitalJbqirslUAEAZLVDKR7565-43-09 22:50:00 Test Item Value Reference Range Interpretation Comments Lymphocytes # (test code = Lymphocytes 0.7 1.0-5.5 L #) [facility] HospitalRqxafjfEAEEHKUWTT1454-49-20 22:50:00 Test Item Value Reference Range Interpretation Comments Monocytes (test code = Monocytes) 3.4 2.0-12.0 N [facility] HospitalEonwwaiMZQHEDJAFZ8545-54-78 22:50:00 Test Item Value Reference Range Interpretation Comments Plt Morph (test code = Normal (03/14/2012 N Plt Morph) 17:50:00) [facility] HospitalGxvadxmVNHZZAYZKQ4668-37-16 22:50:00 Test Item Value Reference Range Interpretation Comments Lymphocytes (test code = Lymphocytes) 6.0 20.0-40.0 L [facility] HospitalGckjomtFISGYUNECP4307-17-06 22:50:00 Test Item Value Reference Range Interpretation Comments Eosinophils (test code = 0.0 See_Comment N [A utomated message] The Eosinophils) system which ge nerated this result tra nsmitted reference range : <=4.0. The reference r leo was not used to int erpret this result as normal/abnormal . [facility] HospitalFhgciodZZYCNYUJCS0503-78-08 22:50:00 Test Item Value Reference Range Interpretation Comments Segs (test code = Segs) 90.4 45.0-75.0 H [facility] HospitalHqbkjcoKAPHCHSSHR4434-45-87 22:50:00 Test Item Value Reference Range Interpretation Comments RBC Morph (test code = Normal (03/14/2012 N RBC Morph) 17:50:00) [facility] CenterOdogxnhFIOMWEAMR4013-05-53 22:50:00 Test Item Value Reference Range Interpretation Comments S Preg (test code = S Negative *NA*(03/14/2012 Preg) 17:50:00) [facility] CenterKdepkdgVAZWXBHRU6864-21-68 22:50:00 Test Item Value Reference Range Interpretation Comments Lipase Lvl (test code = Lipase Lvl) 45 73-393 L [facility] CenterTwhgyijGTSJSQQWN0989-43-74 22:50:00 Test Item Value Reference Range Interpretation Comments A/G Ratio (test code = A/G Ratio) 1.2 0.7-1.6 N [facility] CenterJrbjtwsHLTGGFYEF3723-64-84 22:50:00 Test Item Value Reference Range Interpretation Comments Globulin (test code = Globulin) 3.8 2.0-4.0 N [facility] CenterJgphosrFRQJBJERF0821-83-42 22:50:00 Test Item Value Reference Range Interpretation Comments B/C Ratio (test code = B/C Ratio) 21 6-25 N [facility] CenterFsfbpxvQWMCXKYWQ0703-20-74 22:50:00 Test Item Value Reference Range Interpretation Comments AGAP (test code = AGAP) 16.8 10.0-20.0 N [facility] CenterKdwgbldDMDESXRMY9367-62-03 22:50:00 Test Item Value Reference Range Interpretation Comments Bili Total (test code = Bili Total) 1.1 0.2-1.3 N [facility] CenterFsvykbjUMMWAHUQU7364-26-23 22:50:00 Test Item Value Reference Range Interpretation Comments Total Protein (test code = Total 8.2 6.4-8.4 N Protein) [facility] CenterAmwcgqjXKMTJLQDF7629-71-99 22:50:00 Test Item Value Reference Range Interpretation Comments Potassium Lvl (test code = Potassium 3.8 3.5-5.1 N Lvl) [facility] CenterLiwnlihBROSNGOTK6162-48-96 22:50:00 Test Item Value Reference Range Interpretation Comments Creatinine Lvl (test code = Creatinine 0.7 0.5-1.4 N Lvl) [facility] CenterVydayikQKUDBIGQM6089-34-05 22:50:00 Test Item Value Reference Range Interpretation Comments Sodium Lvl (test code = Sodium Lvl) 139 135-145 N [facility] CenterRfkcjkpQGHZVVCSD7518-17-66 22:50:00 Test Item Value Reference Range Interpretation Comments Chloride Lvl (test code = Chloride Lvl) 99 95-109 N [facility] CenterFgdqzpsFPDYPGFQR1258-15-91 22:50:00 Test Item Value Reference Range Interpretation Comments CO2 (test code = CO2) 27 24-32 N [facility] CenterIsoysikXIIONGSQF8072-78-37 22:50:00 Test Item Value Reference Range Interpretation Comments Glucose Lvl (test code = Glucose Lvl) 301 70-99 H [facility] CenterJhkjuwtVWMSDKZAX3424-98-21 22:50:00 Test Item Value Reference Range Interpretation Comments BUN (test code = BUN) 15 7-22 N [facility] CenterVsivzypPOEGECNBE9489-25-17 22:50:00 Test Item Value Reference Range Interpretation Comments ALT (test code = ALT) 24 See_Comment N [Auto mated message] The system which ge nerated this result transmit rohit reference range : <=65. The reference range was not used to interpr et this result as reji l/abnormal. [facility] CenterEgdghonLMKVDPIJD0335-39-97 22:50:00 Test Item Value Reference Range Interpretation Comments AST (test code = AST) 20 See_Comment N [Auto mated message] The system which ge nerated this result transmit rohit reference range : <=37. The reference range was not used to interpr et this result as reji l/abnormal. [facility] CenterPufvcmlOLWITSXRP0610-90-38 22:50:00 Test Item Value Reference Range Interpretation Comments Alk Phos (test code = Alk Phos) 67 39-136 N [facility] CenterNuzcnnnDHUHHOPBD5736-25-38 22:50:00 Test Item Value Reference Range Interpretation Comments Albumin Lvl (test code = Albumin Lvl) 4.4 3.5-5.0 N [facility] CenterRmfrgviNTKZLWEUS5888-82-85 22:50:00 Test Item Value Reference Range Interpretation Comments Calcium Lvl (test code = Calcium Lvl) 9.9 8.5-10.5 N [facility] HospitalXtjogopGJCVZIQEMF6688-27-44 22:50:00 Test Item Value Reference Range Interpretation Comments MPV (test code = MPV) 11.8 7.4-10.4 H [facility] HospitalWqemxccMDYXKNRTOW1270-05-87 22:50:00 Test Item Value Reference Range Interpretation Comments MCHC (test code = MCHC) 35.9 32.0-36.0 N [facility] HospitalHarfuvvJCZEPTZWCM1206-58-21 22:50:00 Test Item Value Reference Range Interpretation Comments MCH (test code = MCH) 31.2 pg 27.0-31.0 H [facility] HospitalUdyyqmvQMQEBCMJIN4926-49-50 22:50:00 Test Item Value Reference Range Interpretation Comments Platelet (test code = Platelet) 189 133-450 N [facility] HospitalJbxawkrWIGKFCIYXP7120-80-74 22:50:00 Test Item Value Reference Range Interpretation Comments RDW (test code = RDW) 13.1 11.5-14.5 N [facility] HospitalNpsmietCZYDHCFTWY2530-31-40 22:50:00 Test Item Value Reference Range Interpretation Comments Hct (test code = Hct) 40.7 36.0-48.0 N [facility] HospitalMsuutdkPEVVVATZUN2270-42-65 22:50:00 Test Item Value Reference Range Interpretation Comments Hgb (test code = Hgb) 14.6 12.0-16.0 N [facility] HospitalKzggkvfEQUGVFKUDS2125-56-09 22:50:00 Test Item Value Reference Range Interpretation Comments MCV (test code = MCV) 87.0 81.0-99.0 N [facility] HospitalQyamfmaYVWITTCYGD2049-62-22 22:50:00 Test Item Value Reference Range Interpretation Comments WBC (test code = WBC) 11.7 3.7-10.4 H [facility] HospitalVwmqvkePLGKATOBYD9563-84-71 22:50:00 Test Item Value Reference Range Interpretation Comments RBC (test code = RBC) 4.68 4.20-5.40 N [facility] HospitalJxihjlsUQUYJCYZJO0485-06-83 22:50:00 Test Item Value Reference Range Interpretation Comments Basophils # (test code 0.0 See_Comment N [Aut omated message] The = Basophils #) system which generated this result tra nsmitted reference range : <=0.2. The reference r leo was not used to int erpret this result as normal/abnormal . [facility] HospitalSuhiiftPDBGFUEYJA3231-61-02 22:50:00 Test Item Value Reference Range Interpretation Comments Basophils (test code = 0.2 See_Comment N [Aut omated message] The Basophils) system which ge nerated this result tra nsmitted reference range : <=1.0. The reference r leo was not used to int erpret this result as normal/abnormal . [facility] HospitalRibuylyOOWLWSDOVP2425-36-46 22:50:00 Test Item Value Reference Range Interpretation Comments Eosinophils # (test code 0.0 See_Comment N [A utomated message] The = Eosinophils #) system whic h generated this result tra nsmitted reference range : <=0.5. The reference r leo was not used to int erpret this result as normal/abnormal . [facility] HospitalXufrnpfWPBIBCVODQ0512-96-47 22:50:00 Test Item Value Reference Range Interpretation Comments Monocytes # (test code 0.4 See_Comment N [Aut omated message] The = Monocytes #) system which generated this result tra nsmitted reference range : <=0.8. The reference r leo was not used to int erpret this result as normal/abnormal . [facility] HospitalXeomuofIALLIHVYZY0641-77-90 22:50:00 Test Item Value Reference Range Interpretation Comments Segs-Bands # (test code = Segs-Bands #) 10.6 1.5-8.1 H [facility] HospitalByovcuaTCLTVVSHTO5399-00-29 22:50:00 Test Item Value Reference Range Interpretation Comments Lymphocytes # (test code = Lymphocytes 0.7 1.0-5.5 L #) [facility] HospitalEhrfsynNEBYGNVLNK0875-17-92 22:50:00 Test Item Value Reference Range Interpretation Comments Monocytes (test code = Monocytes) 3.4 2.0-12.0 N [facility] HospitalFhkmzhcJVDSZJCOQK1375-72-88 22:50:00 Test Item Value Reference Range Interpretation Comments Plt Morph (test code = Normal (03/14/2012 N Plt Morph) 17:50:00) [facility] HospitalQklfhsfRRBHHKSCCV0074-66-39 22:50:00 Test Item Value Reference Range Interpretation Comments Lymphocytes (test code = Lymphocytes) 6.0 20.0-40.0 L [facility] HospitalUzavhqwCMEKJJMRIH7477-04-55 22:50:00 Test Item Value Reference Range Interpretation Comments Eosinophils (test code = 0.0 See_Comment N [A utomated message] The Eosinophils) system which ge nerated this result tra nsmitted reference range : <=4.0. The reference r leo was not used to int erpret this result as normal/abnormal . [facility] HospitalDqjwtfrKMCECBWWMR4964-65-11 22:50:00 Test Item Value Reference Range Interpretation Comments Segs (test code = Segs) 90.4 45.0-75.0 H [facility] HospitalAenqigpQQFTDLPDSR1458-73-82 22:50:00 Test Item Value Reference Range Interpretation Comments RBC Morph (test code = Normal (03/14/2012 N RBC Morph) 17:50:00) [facility]PswwbhcZYHDYJAMO0947-81-49 22:50:00 Test Item Value Reference Range Interpretation Comments S Preg (test code = S Negative *NA*(03/14/2012 Preg) 17:50:00) [facility] CenterJbsautuMDVMJFEBO5134-97-78 22:50:00 Test Item Value Reference Range Interpretation Comments Lipase Lvl (test code = Lipase Lvl) 45 73-393 L [facility] CenterJwehihaFFSNTHKPA4080-81-05 22:50:00 Test Item Value Reference Range Interpretation Comments A/G Ratio (test code = A/G Ratio) 1.2 0.7-1.6 N [facility] CenterRpjuswpTKJGZATCB4910-63-78 22:50:00 Test Item Value Reference Range Interpretation Comments Globulin (test code = Globulin) 3.8 2.0-4.0 N [facility] CenterOcjdkffGAELYBZLP8876-00-20 22:50:00 Test Item Value Reference Range Interpretation Comments B/C Ratio (test code = B/C Ratio) 21 6-25 N [facility] CenterLapvfduMTTZKZETF8716-68-19 22:50:00 Test Item Value Reference Range Interpretation Comments AGAP (test code = AGAP) 16.8 10.0-20.0 N [facility] CenterAuxpeviFJKOGIQGH6763-48-89 22:50:00 Test Item Value Reference Range Interpretation Comments Bili Total (test code = Bili Total) 1.1 0.2-1.3 N [facility] CenterMxjewkvERLRHBYJY0612-80-49 22:50:00 Test Item Value Reference Range Interpretation Comments Total Protein (test code = Total 8.2 6.4-8.4 N Protein) [facility] CenterLsiwbshHUMAUDEFY5419-79-10 22:50:00 Test Item Value Reference Range Interpretation Comments Potassium Lvl (test code = Potassium 3.8 3.5-5.1 N Lvl) [facility] CenterBjrvlbxQCQAHEKVS3543-58-06 22:50:00 Test Item Value Reference Range Interpretation Comments Creatinine Lvl (test code = Creatinine 0.7 0.5-1.4 N Lvl) [facility] CenterWjrnzjkILMKMPSPB6599-61-29 22:50:00 Test Item Value Reference Range Interpretation Comments Sodium Lvl (test code = Sodium Lvl) 139 135-145 N [facility] CenterGsmmuvnSCBQYZPIA1047-29-67 22:50:00 Test Item Value Reference Range Interpretation Comments Chloride Lvl (test code = Chloride Lvl) 99 95-109 N [facility] CenterZtqmrebKIOMCZNRJ0689-53-61 22:50:00 Test Item Value Reference Range Interpretation Comments CO2 (test code = CO2) 27 24-32 N [facility] CenterNhawcfeOAEIZXVCG0535-37-39 22:50:00 Test Item Value Reference Range Interpretation Comments Glucose Lvl (test code = Glucose Lvl) 301 70-99 H [facility] CenterJheisuiPKAMPGPKA0253-31-29 22:50:00 Test Item Value Reference Range Interpretation Comments BUN (test code = BUN) 15 7-22 N [facility] CenterQkgrpqrMRYFLUPIF5978-92-00 22:50:00 Test Item Value Reference Range Interpretation Comments ALT (test code = ALT) 24 See_Comment N [Auto mated message] The system which ge nerated this result transmit rohit reference range : <=65. The reference range was not used to interpr et this result as reji l/abnormal. [facility] CenterKfyqsusJMCTREKZD2352-40-02 22:50:00 Test Item Value Reference Range Interpretation Comments AST (test code = AST) 20 See_Comment N [Auto mated message] The system which ge nerated this result transmit rohit reference range : <=37. The reference range was not used to interpr et this result as reji l/abnormal. [facility] CenterRiehqqmHRTCLBHNX9350-50-84 22:50:00 Test Item Value Reference Range Interpretation Comments Alk Phos (test code = Alk Phos) 67 39-136 N [facility] CenterIvhvkbsVFIGKBUSJ9123-22-25 22:50:00 Test Item Value Reference Range Interpretation Comments Albumin Lvl (test code = Albumin Lvl) 4.4 3.5-5.0 N [facility] CenterLckhwkaEBLOKAUBU8725-29-56 22:50:00 Test Item Value Reference Range Interpretation Comments Calcium Lvl (test code = Calcium Lvl) 9.9 8.5-10.5 N [facility] HospitalGmixfhvVFOYUVAYIX2406-33-75 22:50:00 Test Item Value Reference Range Interpretation Comments MPV (test code = MPV) 11.8 7.4-10.4 H [facility] HospitalEzuwqrxYDYMNTPVHK8478-91-42 22:50:00 Test Item Value Reference Range Interpretation Comments MCHC (test code = MCHC) 35.9 32.0-36.0 N [facility] HospitalJwnjxiqUTBOGXRRKV3745-09-70 22:50:00 Test Item Value Reference Range Interpretation Comments MCH (test code = MCH) 31.2 pg 27.0-31.0 H [facility] HospitalEjalahwUTDFFOQWUO3072-67-49 22:50:00 Test Item Value Reference Range Interpretation Comments Platelet (test code = Platelet) 189 133-450 N [facility] HospitalVlzktefXTDPZVHESQ7505-40-81 22:50:00 Test Item Value Reference Range Interpretation Comments RDW (test code = RDW) 13.1 11.5-14.5 N [facility] HospitalKxmgjunMALLFCHQZH2489-70-73 22:50:00 Test Item Value Reference Range Interpretation Comments Hct (test code = Hct) 40.7 36.0-48.0 N [facility] HospitalAdvixvuIDVNGCXSTX6043-74-43 22:50:00 Test Item Value Reference Range Interpretation Comments Hgb (test code = Hgb) 14.6 12.0-16.0 N [facility] HospitalPirycjjFJTTNTFWIZ8071-55-88 22:50:00 Test Item Value Reference Range Interpretation Comments MCV (test code = MCV) 87.0 81.0-99.0 N [facility] HospitalEkoiuccVVVXWYTKFD4754-39-53 22:50:00 Test Item Value Reference Range Interpretation Comments WBC (test code = WBC) 11.7 3.7-10.4 H [facility] HospitalDgkmrlkEIBEDYZYIV8407-74-15 22:50:00 Test Item Value Reference Range Interpretation Comments RBC (test code = RBC) 4.68 4.20-5.40 N [facility] HospitalHorpntvEJNOUWKOBM3867-23-77 22:50:00 Test Item Value Reference Range Interpretation Comments Basophils # (test code 0.0 See_Comment N [Aut omated message] The = Basophils #) system which generated this result tra nsmitted reference range : <=0.2. The reference r leo was not used to int erpret this result as normal/abnormal . [facility] HospitalYfipqlfUASEYRCIMB2693-63-42 22:50:00 Test Item Value Reference Range Interpretation Comments Basophils (test code = 0.2 See_Comment N [Aut omated message] The Basophils) system which ge nerated this result tra nsmitted reference range : <=1.0. The reference r leo was not used to int erpret this result as normal/abnormal . [facility] HospitalJxswdsaHUMVRMLXXW5254-47-23 22:50:00 Test Item Value Reference Range Interpretation Comments Eosinophils # (test code 0.0 See_Comment N [A utomated message] The = Eosinophils #) system ic h generated this result tra nsmitted reference range : <=0.5. The reference r leo was not used to int erpret this result as normal/abnormal . [facility] HospitalMfuvucmQKPGRBIWGI3520-81-18 22:50:00 Test Item Value Reference Range Interpretation Comments Monocytes # (test code 0.4 See_Comment N [Aut omated message] The = Monocytes #) system which generated this result tra nsmitted reference range : <=0.8. The reference r leo was not used to int erpret this result as normal/abnormal . [facility] HospitalTwplqyrUIPPNXTDDN4836-83-10 22:50:00 Test Item Value Reference Range Interpretation Comments Segs-Bands # (test code = Segs-Bands #) 10.6 1.5-8.1 H [facility] HospitalPcfjslaEPWPSYXMXN6483-20-51 22:50:00 Test Item Value Reference Range Interpretation Comments Lymphocytes # (test code = Lymphocytes 0.7 1.0-5.5 L #) [facility] HospitalTumdlxqMTVIVHHHXR5691-60-66 22:50:00 Test Item Value Reference Range Interpretation Comments Monocytes (test code = Monocytes) 3.4 2.0-12.0 N [facility] HospitalRmuzfgoXDZURKTQHO9290-29-73 22:50:00 Test Item Value Reference Range Interpretation Comments Plt Morph (test code = Normal (03/14/2012 N Plt Morph) 17:50:00) [facility] HospitalJgaqoqzKRVLMCQDHX7729-84-76 22:50:00 Test Item Value Reference Range Interpretation Comments Lymphocytes (test code = Lymphocytes) 6.0 20.0-40.0 L [facility] HospitalBcxzzffLMNUZDZAAI6549-66-11 22:50:00 Test Item Value Reference Range Interpretation Comments Eosinophils (test code = 0.0 See_Comment N [A utomated message] The Eosinophils) system which ge nerated this result tra nsmitted reference range : <=4.0. The reference r leo was not used to int erpret this result as normal/abnormal . [facility] HospitalCllgpnaKZUBKKSQOU6822-21-50 22:50:00 Test Item Value Reference Range Interpretation Comments Segs (test code = Segs) 90.4 45.0-75.0 H [facility] HospitalDfeoifiFVCBWMAXIL4057-07-88 22:50:00 Test Item Value Reference Range Interpretation Comments RBC Morph (test code = Normal (03/14/2012 N RBC Morph) 17:50:00) [facility] CenterHwhrdquJJLMKVQJK5857-10-83 22:50:00 Test Item Value Reference Range Interpretation Comments S Preg (test code = S Negative *NA*(03/14/2012 Preg) 17:50:00) [facility] CenterOgjxphgZKVKXOHZY9165-96-15 22:50:00 Test Item Value Reference Range Interpretation Comments Lipase Lvl (test code = Lipase Lvl) 45 73-393 L [facility] CenterZjcenfwMLZYIWEAM5968-15-68 22:50:00 Test Item Value Reference Range Interpretation Comments A/G Ratio (test code = A/G Ratio) 1.2 0.7-1.6 N [facility] CenterQmlrehkYYYKJCZBT1095-60-46 22:50:00 Test Item Value Reference Range Interpretation Comments Globulin (test code = Globulin) 3.8 2.0-4.0 N [facility] CenterRhyzxtrUEVFBMLMB3472-97-17 22:50:00 Test Item Value Reference Range Interpretation Comments B/C Ratio (test code = B/C Ratio) 21 6-25 N [facility] CenterBqgxysbRBHZFAALO0929-58-49 22:50:00 Test Item Value Reference Range Interpretation Comments AGAP (test code = AGAP) 16.8 10.0-20.0 N [facility] CenterLfpsmaiYXPXYNAYS3075-47-78 22:50:00 Test Item Value Reference Range Interpretation Comments Bili Total (test code = Bili Total) 1.1 0.2-1.3 N [facility] CenterOvqchtyCDLCKLSRR4452-90-53 22:50:00 Test Item Value Reference Range Interpretation Comments Total Protein (test code = Total 8.2 6.4-8.4 N Protein) [facility] CenterTexaxngGORBNCRMG4259-03-09 22:50:00 Test Item Value Reference Range Interpretation Comments Potassium Lvl (test code = Potassium 3.8 3.5-5.1 N Lvl) [facility] CenterPyglpsgJDZRICEKZ4239-84-50 22:50:00 Test Item Value Reference Range Interpretation Comments Creatinine Lvl (test code = Creatinine 0.7 0.5-1.4 N Lvl) [facility] CenterQxzjevaVIZXCWVEE1738-80-70 22:50:00 Test Item Value Reference Range Interpretation Comments Sodium Lvl (test code = Sodium Lvl) 139 135-145 N [facility] CenterHrtdphrCGVDAFGDC0348-40-90 22:50:00 Test Item Value Reference Range Interpretation Comments Chloride Lvl (test code = Chloride Lvl) 99 95-109 N [facility] CenterYixfnblHVXYHRQXZ5581-02-48 22:50:00 Test Item Value Reference Range Interpretation Comments CO2 (test code = CO2) 27 24-32 N [facility] CenterVsjvcgxNBWDWHXYD7087-22-50 22:50:00 Test Item Value Reference Range Interpretation Comments Glucose Lvl (test code = Glucose Lvl) 301 70-99 H [facility] CenterRvphmywGZYPXKFVN4343-05-88 22:50:00 Test Item Value Reference Range Interpretation Comments BUN (test code = BUN) 15 7-22 N [facility] CenterEvvvpjbJHIKQLNEP2195-59-01 22:50:00 Test Item Value Reference Range Interpretation Comments ALT (test code = ALT) 24 See_Comment N [Auto mated message] The system which ge nerated this result transmit rohit reference range : <=65. The reference range was not used to interpr et this result as reji l/abnormal. [facility] CenterIxyvsxyYVQVSAOHR7367-48-92 22:50:00 Test Item Value Reference Range Interpretation Comments AST (test code = AST) 20 See_Comment N [Auto mated message] The system which ge nerated this result transmit rohit reference range : <=37. The reference range was not used to interpr et this result as reji l/abnormal. [facility]IkpzalcCIYJFWCMU0491-80-73 22:50:00 Test Item Value Reference Range Interpretation Comments Alk Phos (test code = Alk Phos) 67 39-136 N [facility] CenterRfjvyssZIQWLOAYK0336-61-53 22:50:00 Test Item Value Reference Range Interpretation Comments Albumin Lvl (test code = Albumin Lvl) 4.4 3.5-5.0 N [facility] CenterVywgiriTIWSJPYBO7231-02-76 22:50:00 Test Item Value Reference Range Interpretation Comments Calcium Lvl (test code = Calcium Lvl) 9.9 8.5-10.5 N [facility] CenterHorvkocZUNQWTQOLB7048-31-08 22:50:00 Test Item Value Reference Range Interpretation Comments MPV (test code = MPV) 11.8 7.4-10.4 H [facility] CenterJtedwpsNZXBJIAEBD3892-66-09 22:50:00 Test Item Value Reference Range Interpretation Comments MCHC (test code = MCHC) 35.9 32.0-36.0 N [facility] CenterQjakxigRIRPMLBCJP7326-65-40 22:50:00 Test Item Value Reference Range Interpretation Comments MCH (test code = MCH) 31.2 pg 27.0-31.0 H [facility] CenterEfwdpohGTXSSIXZTC4494-62-49 22:50:00 Test Item Value Reference Range Interpretation Comments Platelet (test code = Platelet) 189 133-450 N [facility] CenterJwcdjdfYTAYPWEOQW3558-03-01 22:50:00 Test Item Value Reference Range Interpretation Comments RDW (test code = RDW) 13.1 11.5-14.5 N [facility] CenterFvjjpcaZIJSDXKTHI2193-16-29 22:50:00 Test Item Value Reference Range Interpretation Comments Hct (test code = Hct) 40.7 36.0-48.0 N [facility] HospitalTacrzvjWWBEMBTEHA1887-74-69 22:50:00 Test Item Value Reference Range Interpretation Comments Hgb (test code = Hgb) 14.6 12.0-16.0 N [facility] HospitalOkgiojeRMQJMTBNNL1220-05-69 22:50:00 Test Item Value Reference Range Interpretation Comments MCV (test code = MCV) 87.0 81.0-99.0 N [facility] HospitalXedblbqINGVNZQMSR9971-57-18 22:50:00 Test Item Value Reference Range Interpretation Comments WBC (test code = WBC) 11.7 3.7-10.4 H [facility] HospitalUsauguiIOZZCBVXBD2682-87-94 22:50:00 Test Item Value Reference Range Interpretation Comments RBC (test code = RBC) 4.68 4.20-5.40 N [facility] HospitalKfamjbgBFUAXDUYYY7147-73-53 22:50:00 Test Item Value Reference Range Interpretation Comments Basophils # (test code 0.0 See_Comment N [Aut omated message] The = Basophils #) system which generated this result tra nsmitted reference range : <=0.2. The reference r leo was not used to int erpret this result as normal/abnormal . [facility] HospitalYesrjwdWPHZJTSQOT4668-26-52 22:50:00 Test Item Value Reference Range Interpretation Comments Basophils (test code = 0.2 See_Comment N [Aut omated message] The Basophils) system which ge nerated this result tra nsmitted reference range : <=1.0. The reference r leo was not used to int erpret this result as normal/abnormal . [facility] HospitalOnohcxmKNBADESUZY2631-68-83 22:50:00 Test Item Value Reference Range Interpretation Comments Eosinophils # (test code 0.0 See_Comment N [A utomated message] The = Eosinophils #) system whic h generated this result tra nsmitted reference range : <=0.5. The reference r leo was not used to int erpret this result as normal/abnormal . [facility] HospitalLaavtqaEAJGVAMUST9929-90-94 22:50:00 Test Item Value Reference Range Interpretation Comments Monocytes # (test code 0.4 See_Comment N [Aut omated message] The = Monocytes #) system which generated this result tra nsmitted reference range : <=0.8. The reference r leo was not used to int erpret this result as normal/abnormal . [facility] HospitalLzpwjqcLNNDHPGHCF9499-47-57 22:50:00 Test Item Value Reference Range Interpretation Comments Segs-Bands # (test code = Segs-Bands #) 10.6 1.5-8.1 H [facility] HospitalPaonjwaIRXRFQACQL6530-49-68 22:50:00 Test Item Value Reference Range Interpretation Comments Lymphocytes # (test code = Lymphocytes 0.7 1.0-5.5 L #) [facility] HospitalDatedtoLQLUCUVVVR9052-77-65 22:50:00 Test Item Value Reference Range Interpretation Comments Monocytes (test code = Monocytes) 3.4 2.0-12.0 N [facility] HospitalRizckbzZGTNDEVJQE4794-34-48 22:50:00 Test Item Value Reference Range Interpretation Comments Plt Morph (test code = Normal (03/14/2012 N Plt Morph) 17:50:00) [facility] HospitalQwkmzybTZBTNNJILI6842-28-76 22:50:00 Test Item Value Reference Range Interpretation Comments Lymphocytes (test code = Lymphocytes) 6.0 20.0-40.0 L [facility] HospitalOcytqkyLNNGJJRTIL7044-09-41 22:50:00 Test Item Value Reference Range Interpretation Comments Eosinophils (test code = 0.0 See_Comment N [A utomated message] The Eosinophils) system which ge nerated this result tra nsmitted reference range : <=4.0. The reference r leo was not used to int erpret this result as normal/abnormal . [facility] HospitalWfjuwpsLBXWSHLAIF6041-99-75 22:50:00 Test Item Value Reference Range Interpretation Comments Segs (test code = Segs) 90.4 45.0-75.0 H [facility] HospitalTulsbuzGVMEAYQWLI3599-37-30 22:50:00 Test Item Value Reference Range Interpretation Comments RBC Morph (test code = Normal (03/14/2012 N RBC Morph) 17:50:00) [facility] GLUCOSE MPUQWQH6449-23-40 23:43:00 Test Item Value Reference Range Interpretation Comments Gluc POC Lifscn (test code = Gluc POC 167 70-99 H Lifscn) [facility] GLUCOSE GYFMRTL7500-59-05 23:43:00 Test Item Value Reference Range Interpretation Comments Comment1 (test code = Comment1) Notify RN/MD [facility] GLUCOSE TCRXRGU3799-63-36 23:43:00 Test Item Value Reference Range Interpretation Comments Comment2 (test code = Comment2) Sliding Scale [facility] GLUCOSE DEOXSFA5302-92-31 23:43:00 Test Item Value Reference Range Interpretation Comments Gluc POC Lifscn (test code = Gluc POC 167 70-99 H Lifscn) [facility] GLUCOSE ITVUTPU5321-20-26 23:43:00 Test Item Value Reference Range Interpretation Comments Comment1 (test code = Comment1) Notify RN/ [facility] GLUCOSE SDGLKRL6957-58-02 23:43:00 Test Item Value Reference Range Interpretation Comments Comment2 (test code = Comment2) Sliding Scale [facility] GLUCOSE SMPYJRB3349-91-05 23:43:00 Test Item Value Reference Range Interpretation Comments Gluc POC Lifscn (test code = Gluc POC 167 70-99 H Lifscn) [facility] GLUCOSE KCVDMGW0539-03-54 23:43:00 Test Item Value Reference Range Interpretation Comments Comment1 (test code = Comment1) Notify RN/ [facility] GLUCOSE OEPMLNM8917-27-05 23:43:00 Test Item Value Reference Range Interpretation Comments Comment2 (test code = Comment2) Sliding Scale [facility] GLUCOSE KFKNFMQ0269-14-62 23:43:00 Test Item Value Reference Range Interpretation Comments Gluc POC Lifscn (test code = Gluc POC 167 70-99 H Lifscn) [facility] GLUCOSE SRHPQGE8927-29-49 23:43:00 Test Item Value Reference Range Interpretation Comments Comment1 (test code = Comment1) Notify RN/ [facility] GLUCOSE GWANRXJ5276-67-21 23:43:00 Test Item Value Reference Range Interpretation Comments Comment2 (test code = Comment2) Sliding Scale [facility] GLUCOSE ELPGRNE1765-89-73 17:40:00 Test Item Value Reference Range Interpretation Comments Gluc POC Lifscn (test code = Gluc POC 189 70-99 H Lifscn) [facility] GLUCOSE [id number] 17:40:00 Test Item Value Reference Range Interpretation Comments Comment1 (test code = Comment1) Notifcaron PATRICK [facility] GLUCOSE XEDZTJU5520-76-17 17:40:00 Test Item Value Reference Range Interpretation Comments Comment2 (test code = Comment2) [facility]annH[facility] GLUCOSE [id number] 17:40:00 Test Item Value Reference Range Interpretation Comments Gluc POC Lifscn (test code = Gluc POC 189 70-99 H Lifscn) [facility] GLU[facility]SE MRLTSIJ2669-75-63 17:40:00 Test Item Value Reference Range Interpretation Comments Comment1 (test code = Comment1) Notify RN/ [facility] GLUCOSE [id number] 17:40:00 Test Item Value Reference Range Interpretation Comments Comment2 (test code = Comment2) Sliding Scale [facility] GLUCOSE [id number] 17:40:00 Test Item Value Reference Range Interpretation Comments Gluc POC Lifscn (test code = Gluc POC 189 70-99 H Lifscn) [facility] GLUCOSE [id number] 17:40:00 Test Item Value Reference Range Interpretation Comments Comment1 (test code = Comment1) Notify RN/ [facility] GLUCOSE [id number] 17:40:00 Test Item Value Reference Range Interpretation Comments Comment2 (test code = Comment2) Sliding Scale [facility] GLUCOSE [id number] 17:40:00 Test Item Value Reference Range Interpretation Comments Gluc POC Lifscn (test code = Gluc POC 189 70-99 H Lifscn) [facility] GLUCOSE [id number] 17:40:00 Test Item Value Reference Range Interpretation Comments Comment1 (test code = Comment1) Notify RN/ [facility] GLUCOSE [id number] 17:40:00 Test Item Value Reference Range Interpretation Comments Comment2 (test code = Comment2) Sliding Scale [facility] GLU[facility]SE [id number] 13:34:00 Test Item Value Reference Range Interpretation Comments Comment2 (test code = Comment2) Sliding Scale [facility] GLU[facility]SE [id number] 13:34:00 Test Item Value Reference Range Interpretation Comments Gluc POC Lifscn (test code = Gluc POC 110 70-99 H Lifscn) [facility] GLUCOSE [id number] 13:34:00 Test Item Value Reference Range Interpretation Comments Comment1 (test code = Comment1) [facility] [id number] 13:34:00 Test Item Value Reference Range Interpretation Comments Comment2 (test code = Comment2) Sliding Scale [facility] GLUCOSE [id number] 13:34:00 Test Item Value Reference Range Interpretation Comments Gluc POC Lifscn (test code = Gluc POC 110 70-99 H Lifscn) [facility] GLUCOSE [id number] 13:34:00 Test Item Value Reference Range Interpretation Comments Comment1 (test code = Comment1) Notify TABATHA/ [facility] GLUCOSE [id number] 13:34:00 Test Item Value Reference Range Interpretation Comments Comment2 (test code = Comment2) Sliding Scale [facility] GLUCOSE [id number] 13:34:00 Test Item Value Reference Range Interpretation Comments Gluc POC Lifscn (test code = Gluc POC 110 70-99 H [facility]n) [facility] [facility] GLUCOSE [id number] 13:34:00 Test Item Value Reference Range Interpretation Comments Comment1 (test code = Comment1) Notify TABATHA/ [facility] GLUCOSE [id number] 13:34:00 Test Item Value Reference Range Interpretation Comments Comment2 (test code = Comment2) Sliding Scale [facility] GLUCOSE GQMMQWQ7984-87-73 13:34:00 Test Item Value Reference Range Interpretation Comments Gluc POC Lifscn (test code = Gluc POC 110 70-99 H Lifscn) [facility] GLUCOSE PSDZYQL6278-36-70 13:34:00 Test Item Value Reference Range Interpretation Comments Comment1 (test code = Comment1) [facility]XhojunbCYAXIZOXB3777-46-89 00:00:00 Test Item Value Reference Range Interpretation Comments U Preg (test code = U Negative (11/28/2011 N Preg) 19:00:00) [facility] CenterFjdkuhmMGGWVAHRLP5341-77-49 00:00:00 Test Item Value Reference Range Interpretation Comments Micro? (test code = Performed (11/28/2011 N Micro?) 19:00:00) [facility] CenterBprjojoJRULCIFAAX9719-09-48 00:00:00 Test Item Value Reference Range Interpretation Comments UA Sq Epi (test code Occasional /LPF N = UA Sq Epi) (11/28/2011 19:00:00) [facility]HrgufauNYJIFQSZPU1229-63-41 00:00:00 Test Item Value Reference Range Interpretation Comments UA RBC (test None Seen See_Comment N [Automated mes pastor] code = UA RBC) (11/28/2011 The system wh ich 19:00:00) generated this result transmitted ref erence range: <=2. The reference range was not used to int erpret this result as normal/abnormal . [facility]ZcjbivwVZIQHRBIFT2081-18-03 00:00:00 Test Item Value Reference Range Interpretation Comments UA WBC (test code Occasional See_Comment [Automate d message] The = UA WBC) system which ge nerated this result tra nsmitted reference range : <=5. The reference range was not used to interpr et this result as normal/abnormal . [facility] HospitalVdepjphELBJGSDYOX6139-40-50 00:00:00 Test Item Value Reference Range Interpretation Comments UA Protein (test code Negative mg/dL N = UA Protein) (11/28/2011 19:00:00) [facility] HospitalSumqchsBDYBEMLEPD6465-81-53 00:00:00 Test Item Value Reference Range Interpretation Comments UA pH (test code = UA pH) 7.0 1 5.0-8.0 N [facility]KiohwpuHQSYKBFJRQ7848-56-07 00:00:00 Test Item Value Reference Range Interpretation Comments UA Spec Grav (test code = UA Spec 1.020 1 N Grav) [facility] HospitalQevaigjOENMEFOMXA4204-92-46 00:00:00 Test Item Value Reference Range Interpretation Comments UA Turbidity (test code = Clear (11/28/2011 N UA Turbidity) 19:00:00) [facility] HospitalBlbrnueAGZYMGUONQ4156-56-35 00:00:00 Test Item Value Reference Range Interpretation Comments UA Color (test code = Yellow *NA*(11/28/2011 UA Color) 19:00:00) [facility] TexasQllszaoAKAPRLRXDJ5088-93-43 00:00:00 Test Item Value Reference Range Interpretation Comments UA Urobilinogen (test code = UA 0.2 0.1-1.0 N Urobilinogen) [facility] HospitalEbyoxxuPHUBERSIHT4567-14-31 00:00:00 Test Item Value Reference Range Interpretation Comments UA Blood (test code = Negative (11/28/2011 N UA Blood) 19:00:00) [facility] HospitalWxnzdrsATFRZTDRKT0425-98-85 00:00:00 Test Item Value Reference Range Interpretation Comments UA Bili (test code = Negative *NA*(11/28/2011 UA Bili) 19:00:00) [facility] QukdzmoPKZOXBKMUC7391-22-37 00:00:00 Test Item Value Reference Range Interpretation Comments UA Ketones (test code = >=80 mg/dL A UA Ketones) *ABN*(11/28/2011 19:00:00) [facility] CenterXmxtbfiWNCMMNCTLL9363-03-79 00:00:00 Test Item Value Reference Range Interpretation Comments UA Glucose (test code = >=1000 mg/dL A UA Glucose) *ABN*(11/28/2011 19:00:00) [facility] CenterCcfbytvCQRQPKUXHI7626-49-35 00:00:00 Test Item Value Reference Range Interpretation Comments UA Nitrite (test code Negative (11/28/2011 N = UA Nitrite) 19:00:00) [facility] CenterXyjalmnKVNRXJNHCK8267-87-66 00:00:00 Test Item Value Reference Range Interpretation Comments UA Leuk Est (test Negative (11/28/2011 N code = UA Leuk Est) 19:00:00) [facility] CenterXdfmwruJZSFAYIVI6267-62-17 00:00:00 Test Item Value Reference Range Interpretation Comments U Preg (test code = U Negative (11/28/2011 N Preg) 19:00:00) [facility] CenterRzvmangBJNCOMSRJZ7315-79-46 00:00:00 Test Item Value Reference Range Interpretation Comments Micro? (test code = Performed (11/28/2011 N Micro?) 19:00:00) [facility] CenterRctmwejJLBBWZUTJF6956-42-71 00:00:00 Test Item Value Reference Range Interpretation Comments UA Sq Epi (test code Occasional /LPF N = UA Sq Epi) (11/28/2011 19:00:00) [facility] CenterFcekozdGEUSFEALXX5678-94-99 00:00:00 Test Item Value Reference Range Interpretation Comments UA RBC (test None Seen See_Comment N [Automated mes pastor] code = UA RBC) (11/28/2011 The system wh ich 19:00:00) generated this result transmitted ref erence range: <=2. The reference range was not used to int erpret this result as normal/abnormal . BmhvjdmGZLYKJVBAG4660-60-36 00:00:00 Test Item Value Reference Range Interpretation Comments UA WBC (test code Occasional See_Comment [Automate d message] The = UA WBC) system which ge nerated this result tra nsmitted reference range : <=5. The reference range was not used to interpr et this result as normal/abnormal . [facility] CenterHnqxotyYWCHCGMNYG1457-65-23 00:00:00 Test Item Value Reference Range Interpretation Comments UA Protein (test code Negative mg/dL N = UA Protein) (11/28/2011 19:00:00) [facility] CenterRyxyhmgEVFHLQRUMS7653-09-92 00:00:00 Test Item Value Reference Range Interpretation Comments UA pH (test code = UA pH) 7.0 1 5.0-8.0 N [facility] CenterRrzwhttSAUMUYOCAY5044-51-23 00:00:00 Test Item Value Reference Range Interpretation Comments UA Spec Grav (test code = UA Spec 1.020 1 N Grav) [facility] CenterKmmjfapNXKOWJETBI1884-59-42 00:00:00 Test Item Value Reference Range Interpretation Comments UA Turbidity (test code = Clear (11/28/2011 N UA Turbidity) 19:00:00) [facility] CenterDnxoxkhPKUXDRXQBJ2055-33-97 00:00:00 Test Item Value Reference Range Interpretation Comments UA Color (test code = Yellow *NA*(11/28/2011 UA Color) 19:00:00) [facility] CenterAfhmoijVXTQTORZGB9341-11-32 00:00:00 Test Item Value Reference Range Interpretation Comments UA Urobilinogen (test code = UA 0.2 0.1-1.0 N Urobilinogen) [facility] CenterRvxwrvmOIEWOPLDXP5374-76-74 00:00:00 Test Item Value Reference Range Interpretation Comments UA Blood (test code = Negative (11/28/2011 N UA Blood) 19:00:00) [facility] TexasGvsmstyCQZWOUFXXW4976-60-06 00:00:00 Test Item Value Reference Range Interpretation Comments UA Bili (test code = Negative *NA*(11/28/2011 UA Bili) 19:00:00) [facility] HospitalKcxuyopEFHFBOQETG6823-56-30 00:00:00 Test Item Value Reference Range Interpretation Comments UA Ketones (test code = >=80 mg/dL A UA Ketones) *ABN*(11/28/2011 19:00:00) [facility] TexasKqzzglkTQAPVGJAHA5550-70-92 00:00:00 Test Item Value Reference Range Interpretation Comments UA Glucose (test code = >=1000 mg/dL A UA Glucose) *ABN*(11/28/2011 19:00:00) [facility] TexasGsgbuzwJHTIAKFCKL2799-70-26 00:00:00 Test Item Value Reference Range Interpretation Comments UA Nitrite (test code Negative (11/28/2011 N = UA Nitrite) 19:00:00) [facility] CenterHqkklnnXAMZACUELN9627-55-96 00:00:00 Test Item Value Reference Range Interpretation Comments UA Leuk Est (test Negative (11/28/2011 N code = UA Leuk Est) 19:00:00) [facility] CenterHsgalehHCDOPKVFJ0371-52-56 00:00:00 Test Item Value Reference Range Interpretation Comments U Preg (test code = U Negative (11/28/2011 N Preg) 19:00:00) [facility] TexasYacldhtFYBXCRLXJQ1335-24-42 00:00:00 Test Item Value Reference Range Interpretation Comments Micro? (test code = Performed (11/28/2011 N Micro?) 19:00:00) [facility] TexasRzkkcclTVYQVCUSJV5957-43-85 00:00:00 Test Item Value Reference Range Interpretation Comments UA Sq Epi (test code Occasional /LPF N = UA Sq Epi) (11/28/2011 19:00:00) [facility] TexasFkhyslzVJSGQHAZSN9997-38-15 00:00:00 Test Item Value Reference Range Interpretation Comments UA RBC (test None Seen See_Comment N [Automated mes pastor] code = UA RBC) (11/28/2011 The system [facility] 19:00:00) generated this result transmitted ref erence range: <=2. The reference range was not used to int erpret this result as normal/abnormal . [facility] CenterRecfndlCHKRJVVSSO0966-28-82 00:00:00 Test Item Value Reference Range Interpretation Comments UA WBC (test code Occasional See_Comment [Automate d message] The = UA WBC) system which ge nerated this result tra nsmitted reference range : <=5. The reference range was not used to interpr et this result as normal/abnormal . [facility] CenterOarmjhhAEQIEUJFGE2534-74-88 00:00:00 Test Item Value Reference Range Interpretation Comments UA Protein (test code Negative mg/dL N = UA Protein) (11/28/2011 19:00:00) [facility] HospitalLudjkbuTFJREMJQPS0513-50-50 00:00:00 Test Item Value Reference Range Interpretation Comments UA pH (test code = UA pH) 7.0 1 5.0-8.0 N [facility] CenterBuqopkjHBIEBRKYVS2232-67-95 00:00:00 Test Item Value Reference Range Interpretation Comments UA Spec Grav (test code = UA Spec 1.020 1 N Grav) [facility] CenterItysoieSUYYKTXFXB0833-94-31 00:00:00 Test Item Value Reference Range Interpretation Comments UA Turbidity (test code = Clear (11/28/2011 N UA Turbidity) 19:00:00) [facility] CenterGgonhnyGOPRHRVETI3255-79-33 00:00:00 Test Item Value Reference Range Interpretation Comments UA Color (test code = Yellow *NA*(11/28/2011 UA Color) 19:00:00) [facility] CenterIfwhmbqXLFIHJXIFN0981-78-73 00:00:00 Test Item Value Reference Range Interpretation Comments UA Urobilinogen (test code = UA 0.2 0.1-1.0 N Urobilinogen) [facility] CenterSetjkajRYTMAMLAVZ4928-08-60 00:00:00 Test Item Value Reference Range Interpretation Comments UA Blood (test code = Negative (11/28/2011 N UA Blood) 19:00:00) [facility] CenterFckxhciZJOIXAJQCS8848-12-56 00:00:00 Test Item Value Reference Range Interpretation Comments UA Bili (test code = Negative *NA*(11/28/2011 UA Bili) 19:00:00) [facility] CenterWlzwkfyZTKPMPKTQO1845-51-32 00:00:00 Test Item Value Reference Range Interpretation Comments UA Ketones (test code = >=80 mg/dL A UA Ketones) *ABN*(11/28/2011 19:00:00) [facility] HospitalHwuehojNBATLFKMHI2031-09-44 00:00:00 Test Item Value Reference Range Interpretation Comments UA Glucose (test code = >=1000 mg/dL A UA Glucose) *ABN*(11/28/2011 19:00:00) [facility] HospitalAcbnnwoRQJVDONDRA4587-55-50 00:00:00 Test Item Value Reference Range Interpretation Comments UA Nitrite (test code Negative (11/28/2011 N = UA Nitrite) 19:00:00) [facility] CenterUpdvqdpFTUDGMFBIR6395-34-12 00:00:00 Test Item Value Reference Range Interpretation Comments UA Leuk Est (test Negative (11/28/2011 N code = UA Leuk Est) 19:00:00) [facility] TexasTihosjzJIBQGQMZK7411-58-81 00:00:00 Test Item Value Reference Range Interpretation Comments U Preg (test code = U Negative (11/28/2011 N Preg) 19:00:00) [facility] TexasGpsjyciGZLYVFIXQP7134-48-88 00:00:00 Test Item Value Reference Range Interpretation Comments Micro? (test code = Performed (11/28/2011 N Micro?) 19:00:00) [facility] TexasHqzzcitVIWZZTLQTH7698-70-88 00:00:00 Test Item Value Reference Range Interpretation Comments UA Sq Epi (test code Occasional /LPF N = UA Sq Epi) (11/28/2011 19:00:00) [facility] TexasFedwbhnGBORPUSNWT4329-13-26 00:00:00 Test Item Value Reference Range Interpretation Comments UA RBC (test None Seen See_Comment N [Automated mes pastor] code = UA RBC) (11/28/2011 The system ich 19:00:00) generated this result transmitted ref erence range: <=2. The reference range was not used to int erpret this result as normal/abnormal . [facility] TexasUjtkfqfZSFMYKVZSN8036-63-32 00:00:00 Test Item Value Reference Range Interpretation Comments UA WBC (test code Occasional See_Comment [Automate d message] The = UA WBC) system which ge nerated this result tra nsmitted reference range : <=5. The reference range was not used to interpr et this result as normal/abnormal . [facility] TexasYpvdxmwPHBLIPYRWU3637-40-20 00:00:00 Test Item Value Reference Range Interpretation Comments UA Protein (test code Negative mg/dL N = UA Protein) (11/28/2011 19:00:00) [facility] TexasCpzxhydXHKECEDIHP8515-57-66 00:00:00 Test Item Value Reference Range Interpretation Comments UA pH (test code = UA pH) 7.0 1 5.0-8.0 N [facility] CenterJkztclqSAYRGIRXIY6256-85-21 00:00:00 Test Item Value Reference Range Interpretation Comments UA Spec Grav (test code = UA Spec 1.020 1 N Grav) [facility] HospitalRmwdslyQCCJMUNDFJ2352-38-00 00:00:00 Test Item Value Reference Range Interpretation Comments UA Turbidity (test code = Clear (11/28/2011 N UA Turbidity) 19:00:00) [facility] HospitalKqclfsvAKUIVZLYIY2819-60-82 00:00:00 Test Item Value Reference Range Interpretation Comments UA Color (test code = Yellow *NA*(11/28/2011 UA Color) 19:00:00) [facility] HospitalOywmqhqMCTALLTYMY8312-89-76 00:00:00 Test Item Value Reference Range Interpretation Comments UA Urobilinogen (test code = UA 0.2 0.1-1.0 N Urobilinogen) [facility] HospitalGxjrjkuFXFMUHPBSD1178-44-49 00:00:00 Test Item Value Reference Range Interpretation Comments UA Blood (test code = Negative (11/28/2011 N UA Blood) 19:00:00) [facility] CenterLmmxmwpMFOKIJXSLP5416-56-09 00:00:00 Test Item Value Reference Range Interpretation Comments UA Bili (test code = Negative *NA*(11/28/2011 UA Bili) 19:00:00) [facility] HospitalJiduwufTVUHEXLBOK0493-61-65 00:00:00 Test Item Value Reference Range Interpretation Comments UA Ketones (test code = >=80 mg/dL A UA Ketones) *ABN*(11/28/2011 19:00:00) [facility] HospitalJdpoimwZQWZZOQLJE0090-42-85 00:00:00 Test Item Value Reference Range Interpretation Comments UA Glucose (test code = >=1000 mg/dL A UA Glucose) *ABN*(11/28/2011 19:00:00) [facility] HospitalYwembirZFLYRBTZGF8915-97-94 00:00:00 Test Item Value Reference Range Interpretation Comments UA Nitrite (test code Negative (11/28/2011 N = UA Nitrite) 19:00:00) [facility] HospitalFdvqayhSYTOTQLEMT7276-19-32 00:00:00 Test Item Value Reference Range Interpretation Comments UA Leuk Est (test Negative (11/28/2011 N code = UA Leuk Est) 19:00:00) [facility] CenterEekqdhtROLUPGHGW1787-59-35 20:41:00 Test Item Value Reference Range Interpretation Comments pO2 Roberth (test code = pO2 Roberth) 60 20-49 H [facility] CenterKdqomkgEDZQLPMZJ4872-57-83 20:41:00 Test Item Value Reference Range Interpretation Comments pCO2 Roberth (test code = pCO2 Roberth) 41 38-52 N [facility] CenterDqbqoayEPGUTUHSM9178-21-79 20:41:00 Test Item Value Reference Range Interpretation Comments pH Roberth (test code = pH Roberth) 7.45 7.28-7.42 H [facility] CenterLvuihgrEJOLOLKLD8285-38-15 20:41:00 Test Item Value Reference Range Interpretation Comments Temp Roberth (test code = Temp Roberth) 37.0 [facility] CenterHyvahdwCRXKSVPAI8118-77-85 20:41:00 Test Item Value Reference Range Interpretation Comments O2 Sat Roberth (test code = O2 Sat Roberth) 92.0 40.0-70.0 H [facility] CenterNttorgvJBMYXDSTH3223-64-76 20:41:00 Test Item Value Reference Range Interpretation Comments BE Roberth (test code = 4 See_Comment H [Automa rohit message] The BE Roberth) system which ge nerated this result transmit rohit reference range : <=2. The reference range was not used to interpr et this result as reji l/abnormal. [facility] CenterGdavdfiKDNWMCQFK6809-85-81 20:41:00 Test Item Value Reference Range Interpretation Comments HCO3 Roberth (test code = HCO3 Roberth) 28.5 22.0-26.0 H [facility] CenterKtazknqJQZARZCPN5498-12-23 20:41:00 Test Item Value Reference Range Interpretation Comments pO2 Roberth (test code = pO2 Roberth) 60 20-49 H [facility] CenterUtferpuUOFIFSXHH4758-54-73 20:41:00 Test Item Value Reference Range Interpretation Comments pCO2 Roberth (test code = pCO2 Roberth) 41 38-52 N [facility] CenterGrgrpdxWNGSWNNTH5482-82-87 20:41:00 Test Item Value Reference Range Interpretation Comments pH Roberth (test code = pH Roberth) 7.45 7.28-7.42 H [facility] CenterXgfvfzcAHRKIKOQE1906-31-93 20:41:00 Test Item Value Reference Range Interpretation Comments Temp Roberth (test code = Temp Roberth) 37.0 [facility] CenterFsjeyaxOTVZWHTUJ5349-47-32 20:41:00 Test Item Value Reference Range Interpretation Comments O2 Sat Roberth (test code = O2 Sat Roberth) 92.0 40.0-70.0 H [facility] CenterGggzwalHCMZBIFMQ5294-04-22 20:41:00 Test Item Value Reference Range Interpretation Comments BE Roberth (test code = 4 See_Comment H [Automa rohit message] The BE Roberth) system which ge nerated this result transmit rohit reference range : <=2. The reference range was not used to interpr et this result as reji l/abnormal. [facility] CenterGujwsykTAPPFUAZN2639-44-01 20:41:00 Test Item Value Reference Range Interpretation Comments HCO3 Roberth (test code = HCO3 Roberth) 28.5 22.0-26.0 H [facility] CenterDasxvuhJEFCGHKON9903-61-43 20:41:00 Test Item Value Reference Range Interpretation Comments pO2 Roberth (test code = pO2 Roberth) 60 20-49 H [facility] CenterXihabrsLCBKXFZZY0698-23-94 20:41:00 Test Item Value Reference Range Interpretation Comments pCO2 Roberth (test code = pCO2 Roberth) 41 38-52 N [facility] CenterFbtlwsrXDBWXEBXB5200-15-26 20:41:00 Test Item Value Reference Range Interpretation Comments pH Roberth (test code = pH Roberth) 7.45 7.28-7.42 H [facility] CenterFrlbkvpJTSCRPFOZ5213-94-86 20:41:00 Test Item Value Reference Range Interpretation Comments Temp Roberth (test code = Temp Roberth) 37.0 [facility] CenterIpehbsuLWPQDZARA8341-10-42 20:41:00 Test Item Value Reference Range Interpretation Comments O2 Sat Roberth (test code = O2 Sat Roberth) 92.0 40.0-70.0 H [facility] CenterGhqdwbpTWMZLEUHP9717-19-83 20:41:00 Test Item Value Reference Range Interpretation Comments BE Roberth (test code = 4 See_Comment H [Automa rohit message] The BE Roberth) system which ge nerated this result transmit rohit reference range : <=2. The reference range was not used to interpr et this result as reji l/abnormal. [facility] CenterNxvlqrdAOSSJNYKS5157-12-97 20:41:00 Test Item Value Reference Range Interpretation Comments HCO3 Robetrh (test code = HCO3 Roberth) 28.5 22.0-26.0 H [facility] CenterZlterknMUGEXZRUV1528-19-77 20:41:00 Test Item Value Reference Range Interpretation Comments pO2 Roberth (test code = pO2 Roberth) 60 20-49 H [facility] CenterPjzrhxcFTKFROTZX4828-02-78 20:41:00 Test Item Value Reference Range Interpretation Comments pCO2 Roberth (test code = pCO2 Roberth) 41 38-52 N [facility] CenterUqdmyslLTGIAKWZO4164-03-00 20:41:00 Test Item Value Reference Range Interpretation Comments pH Roberth (test code = pH Roberth) 7.45 7.28-7.42 H [facility] CenterVgahiutQPYWBJLCE5214-27-27 20:41:00 Test Item Value Reference Range Interpretation Comments Temp Roberth (test code = Temp Roberth) 37.0 [facility] CenterRqrytnjOGKUWWMDW9085-48-21 20:41:00 Test Item Value Reference Range Interpretation Comments O2 Sat Roebrth (test code = O2 Sat Roberth) 92.0 40.0-70.0 H [facility] CenterOpqbpzcEMHXXSYUT2214-06-00 20:41:00 Test Item Value Reference Range Interpretation Comments BE Roberth (test code = 4 See_Comment H [Automa rohit message] The BE Roberth) system which ge nerated this result transmit rohit reference range : <=2. The reference range was not used to interpr et this result as reji l/abnormal. [facility] CenterSakncgvWKFUWHWCM9171-95-11 20:41:00 Test Item Value Reference Range Interpretation Comments HCO3 Roberth (test code = HCO3 Roberth) 28.5 22.0-26.0 H [facility] CenterFachprhVLYTWPIPD5417-45-07 20:00:00 Test Item Value Reference Range Interpretation Comments Lactic Acid Lvl (test code = Lactic 1.6 0.5-2.2 N Acid Lvl) [facility] CenterRhfzhgiTTKWNAGCQ9046-54-22 20:00:00 Test Item Value Reference Range Interpretation Comments Lipase Lvl (test code = Lipase Lvl) 125 73-393 N [facility] CenterZxckueeLCEIKYPBJ4762-54-94 20:00:00 Test Item Value Reference Range Interpretation Comments Albumin Lvl (test code = Albumin Lvl) 4.2 3.5-5.0 N [facility] CenterMiqtxnrDXRJTPSVL4884-34-44 20:00:00 Test Item Value Reference Range Interpretation Comments CO2 (test code = CO2) 23 24-32 L [facility] CenterZbjcicwCVQGMWLRB8927-47-08 20:00:00 Test Item Value Reference Range Interpretation Comments Chloride Lvl (test code = Chloride Lvl) 98 95-109 N [facility] CenterNvvlrnoBWLAXJOUC3782-35-63 20:00:00 Test Item Value Reference Range Interpretation Comments Potassium Lvl (test code = Potassium 3.8 3.5-5.1 N Lvl) [facility] CenterEtweskuRWLNAZHSD3881-14-43 20:00:00 Test Item Value Reference Range Interpretation Comments Sodium Lvl (test code = Sodium Lvl) 138 135-145 N [facility] CenterGnpsugqBTMETKOLW6085-99-64 20:00:00 Test Item Value Reference Range Interpretation Comments Creatinine Lvl (test code = Creatinine 0.7 0.5-1.4 N Lvl) [facility] CenterIrlafqdCKOWKOKAQ7474-37-65 20:00:00 Test Item Value Reference Range Interpretation Comments BUN (test code = BUN) 9 7-22 N [facility] CenterWuxwqyqXFNPIQJYA7002-38-03 20:00:00 Test Item Value Reference Range Interpretation Comments Glucose Lvl (test code = Glucose Lvl) 269 70-99 H [facility] CenterAnnitzvGCQBJOECO7015-59-39 20:00:00 Test Item Value Reference Range Interpretation Comments B/C Ratio (test code = B/C Ratio) 13 6-25 N [facility] CenterVzxdpigLIJEFIZUP2698-71-64 20:00:00 Test Item Value Reference Range Interpretation Comments AGAP (test code = AGAP) 20.8 10.0-20.0 H [facility] CenterGyejjscZPDSOMTLB7984-98-75 20:00:00 Test Item Value Reference Range Interpretation Comments Calcium Lvl (test code = Calcium Lvl) 9.3 8.5-10.5 N [facility] CenterYkxkpsxDJZKEMRDF8887-62-11 20:00:00 Test Item Value Reference Range Interpretation Comments Total Protein (test code = Total 6.7 6.4-8.4 N Protein) [facility] CenterQsdrpdaDHOXVCZWI6340-07-66 20:00:00 Test Item Value Reference Range Interpretation Comments A/G Ratio (test code = A/G Ratio) 1.7 0.7-1.6 H [facility] CenterJdmgbdfKDOCTADET7902-07-12 20:00:00 Test Item Value Reference Range Interpretation Comments Globulin (test code = Globulin) 2.5 2.0-4.0 N [facility] CenterXvmxiqiVIIQZKXNY7383-99-82 20:00:00 Test Item Value Reference Range Interpretation Comments AST (test code = AST) 18 See_Comment N [Auto mated message] The system which ge nerated this result transmit rohit reference range : <=37. The reference range was not used to interpr et this result as reji l/abnormal. [facility] CenterZxdtqylZQNKHOUCG4667-88-06 20:00:00 Test Item Value Reference Range Interpretation Comments Alk Phos (test code = Alk Phos) 62 39-136 N [facility] CenterWiswgcoMLQGHJBJY2222-25-55 20:00:00 Test Item Value Reference Range Interpretation Comments ALT (test code = ALT) 32 See_Comment N [Auto mated message] The system which ge nerated this result transmit rohit reference range : <=65. The reference range was not used to interpr et this result as reji l/abnormal. [facility] CenterBjjrgceVHKQATVKG6902-45-14 20:00:00 Test Item Value Reference Range Interpretation Comments Bili Total (test code = Bili Total) 0.7 0.2-1.3 N [facility] HospitalCbywdyrXFBOOSTXGT4668-65-65 20:00:00 Test Item Value Reference Range Interpretation Comments Anisocyte (test code = 1+ *ABN*(11/28/2011 A Anisocyte) 15:00:00) [facility] HospitalAnkihvxLJTTMGSORF5043-35-93 20:00:00 Test Item Value Reference Range Interpretation Comments Monocytes # (test code 0.1 See_Comment N [Aut omated message] The = Monocytes #) system which generated this result tra nsmitted reference range : <=0.8. The reference r leo was not used to int erpret this result as normal/abnormal . [facility] HospitalRpeecuqLFCDXCBKJY6737-57-70 20:00:00 Test Item Value Reference Range Interpretation Comments Eosinophils # (test code 0.0 See_Comment N [A utomated message] The = Eosinophils #) system whic h generated this result tra nsmitted reference range : <=0.5. The reference r leo was not used to int erpret this result as normal/abnormal . [facility] HospitalMuzdvlbKYNWTYSZQG9460-12-71 20:00:00 Test Item Value Reference Range Interpretation Comments Basophils # (test code 0.0 See_Comment N [Aut omated message] The = Basophils #) system which generated this result tra nsmitted reference range : <=0.2. The reference r leo was not used to int erpret this result as normal/abnormal . [facility] HospitalJkcdaakLBCFTZUEGQ3495-48-74 20:00:00 Test Item Value Reference Range Interpretation Comments Neut Vac (test code = Slight *ABN*(11/28/2011 A Neut Vac) 15:00:00) [facility] HospitalOsapwzfWRZZDIPIOW2441-93-93 20:00:00 Test Item Value Reference Range Interpretation Comments Large Plt (test code = Slight *ABN*(11/28/2011 A Large Plt) 15:00:00) [facility] HospitalRwaumgdYKRFMIWKTM5178-47-00 20:00:00 Test Item Value Reference Range Interpretation Comments Segs-Bands # (test code = Segs-Bands #) 5.7 1.5-8.1 N [facility] HospitalUaqwupvYTRNLIIDXU6861-49-25 20:00:00 Test Item Value Reference Range Interpretation Comments Lymphocytes # (test code = Lymphocytes 0.8 1.0-5.5 L #) [facility] HospitalPqtuydgJFJJMLWIFI6956-08-25 20:00:00 Test Item Value Reference Range Interpretation Comments Eosinophils (test code = 0.2 See_Comment N [A utomated message] The Eosinophils) system which ge nerated this result tra nsmitted reference range : <=4.0. The reference r leo was not used to int erpret this result as normal/abnormal . [facility] HospitalGgbsihqQPODBCQZGR2947-89-52 20:00:00 Test Item Value Reference Range Interpretation Comments Basophils (test code = 0.0 See_Comment N [Aut omated message] The Basophils) system which ge nerated this result tra nsmitted reference range : <=1.0. The reference r leo was not used to int erpret this result as normal/abnormal . [facility] HospitalSvssjldGFBELNJLIE0106-92-14 20:00:00 Test Item Value Reference Range Interpretation Comments Monocytes (test code = Monocytes) 1.9 2.0-12.0 L [facility] HospitalFddarkkHCFMUFQNPL7211-37-08 20:00:00 Test Item Value Reference Range Interpretation Comments Segs (test code = Segs) 86.2 45.0-75.0 H [facility] HospitalDeirkuzMBPIYZXSVN5325-62-60 20:00:00 Test Item Value Reference Range Interpretation Comments Lymphocytes (test code = Lymphocytes) 11.7 20.0-40.0 L [facility] HospitalIibxgidPPADNARRFK6671-18-06 20:00:00 Test Item Value Reference Range Interpretation Comments MPV (test code = MPV) 10.8 7.4-10.4 H [facility] HospitalGqflprxFGKPQASYED4116-45-88 20:00:00 Test Item Value Reference Range Interpretation Comments Platelet (test code = Platelet) 161 133-450 N [facility] HospitalDlahtpgTKDNVNOJGF5646-89-49 20:00:00 Test Item Value Reference Range Interpretation Comments MCHC (test code = MCHC) 35.6 32.0-36.0 N [facility] HospitalJesexuyBEPWTAFNUA9261-79-37 20:00:00 Test Item Value Reference Range Interpretation Comments RDW (test code = RDW) 12.4 11.5-14.5 N [facility] HospitalCpezehhQGEXZJVMNV6244-10-84 20:00:00 Test Item Value Reference Range Interpretation Comments MCH (test code = MCH) 30.7 pg 27.0-31.0 N [facility] HospitalTcxmfxpBJSDYYNHAT0720-12-60 20:00:00 Test Item Value Reference Range Interpretation Comments MCV (test code = MCV) 86.1 81.0-99.0 N [facility] HospitalBqbcxwtMFWDVCPVLF3969-35-21 20:00:00 Test Item Value Reference Range Interpretation Comments Hct (test code = Hct) 33.6 36.0-48.0 L [facility] HospitalAokwwxpRRNUQBEPBT5408-14-52 20:00:00 Test Item Value Reference Range Interpretation Comments Hgb (test code = Hgb) 12.0 12.0-16.0 N [facility] HospitalSplrrgyHPJBICODAQ7871-19-12 20:00:00 Test Item Value Reference Range Interpretation Comments RBC (test code = RBC) 3.90 4.20-5.40 L [facility] HospitalKkkmsjcPUEYUPWOZB2376-83-50 20:00:00 Test Item Value Reference Range Interpretation Comments WBC (test code = WBC) 6.6 3.7-10.4 N [facility] CenterYvmztxbZYOSVPPPC2855-46-87 20:00:00 Test Item Value Reference Range Interpretation Comments Lactic Acid Lvl (test code = Lactic 1.6 0.5-2.2 N Acid Lvl) [facility] CenterOoaqcykXJEXQRXUL5050-06-11 20:00:00 Test Item Value Reference Range Interpretation Comments Lipase Lvl (test code = Lipase Lvl) 125 73-393 N [facility] CenterYspmhrzORAXTFHPK6726-24-48 20:00:00 Test Item Value Reference Range Interpretation Comments Albumin Lvl (test code = Albumin Lvl) 4.2 3.5-5.0 N [facility] CenterTdclryoSZVRQBWQB9036-38-88 20:00:00 Test Item Value Reference Range Interpretation Comments CO2 (test code = CO2) 23 24-32 L [facility] CenterWjyqjbeWHCWDYULF9699-42-06 20:00:00 Test Item Value Reference Range Interpretation Comments Chloride Lvl (test code = Chloride Lvl) 98 95-109 N [facility] CenterRjmkgrdFJYFIZEQA7550-33-63 20:00:00 Test Item Value Reference Range Interpretation Comments Potassium Lvl (test code = Potassium 3.8 3.5-5.1 N Lvl) [facility] CenterGrumfevNUWIQHFWF3766-31-28 20:00:00 Test Item Value Reference Range Interpretation Comments Sodium Lvl (test code = Sodium Lvl) 138 135-145 N [facility] CenterEgcxzoaYRSUXYSRZ1048-58-45 20:00:00 Test Item Value Reference Range Interpretation Comments Creatinine Lvl (test code = Creatinine 0.7 0.5-1.4 N Lvl) [facility] CenterUeivzudNLSZMTOBE3819-00-46 20:00:00 Test Item Value Reference Range Interpretation Comments BUN (test code = BUN) 9 7-22 N [facility] CenterUmpyfotKZNZXDORW0172-62-74 20:00:00 Test Item Value Reference Range Interpretation Comments Glucose Lvl (test code = Glucose Lvl) 269 70-99 H [facility] CenterNhfcmzdUTHWYMQJM3339-18-34 20:00:00 Test Item Value Reference Range Interpretation Comments B/C Ratio (test code = B/C Ratio) 13 6-25 N [facility] CenterEhsmipsLSXYYMTBY2614-80-89 20:00:00 Test Item Value Reference Range Interpretation Comments AGAP (test code = AGAP) 20.8 10.0-20.0 H [facility] CenterWqtenqrIZHWNXRLK5334-08-56 20:00:00 Test Item Value Reference Range Interpretation Comments Calcium Lvl (test code = Calcium Lvl) 9.3 8.5-10.5 N [facility] CenterDyhwnxuEUQOUVTVR9498-95-47 20:00:00 Test Item Value Reference Range Interpretation Comments Total Protein (test code = Total 6.7 6.4-8.4 N Protein) [facility] CenterDirrfyhHKHCXEEUK3207-47-49 20:00:00 Test Item Value Reference Range Interpretation Comments A/G Ratio (test code = A/G Ratio) 1.7 0.7-1.6 H [facility] CenterCinquihRIBIOONXS3000-84-64 20:00:00 Test Item Value Reference Range Interpretation Comments Globulin (test code = Globulin) 2.5 2.0-4.0 N [facility] CenterKxaxsyhVBXMDCGBJ4638-89-50 20:00:00 Test Item Value Reference Range Interpretation Comments AST (test code = AST) 18 See_Comment N [Auto mated message] The system which ge nerated this result transmit rohit reference range : <=37. The reference range was not used to interpr et this result as reji l/abnormal. [facility] CenterVmmhmknBYQAPTEPI6482-58-61 20:00:00 Test Item Value Reference Range Interpretation Comments Alk Phos (test code = Alk Phos) 62 39-136 N [facility] CenterRohxykrPMANUBEQM8192-49-94 20:00:00 Test Item Value Reference Range Interpretation Comments ALT (test code = ALT) 32 See_Comment N [Auto mated message] The system which ge nerated this result transmit rohit reference range : <=65. The reference range was not used to interpr et this result as reji l/abnormal. [facility] CenterDcntobdYIYHUVTKD3590-06-22 20:00:00 Test Item Value Reference Range Interpretation Comments Bili Total (test code = Bili Total) 0.7 0.2-1.3 N [facility] HospitalVewygxlRBMDYNKGIS0336-50-56 20:00:00 Test Item Value Reference Range Interpretation Comments Anisocyte (test code = 1+ *ABN*(11/28/2011 A Anisocyte) 15:00:00) [facility] HospitalBohrhtjXCHYMGHIPZ5545-26-81 20:00:00 Test Item Value Reference Range Interpretation Comments Monocytes # (test code 0.1 See_Comment N [Aut omated message] The = Monocytes #) system which generated this result tra nsmitted reference range : <=0.8. The reference r leo was not used to int erpret this result as normal/abnormal . [facility] HospitalYenzmfeOPZUTLSRCQ8113-72-31 20:00:00 Test Item Value Reference Range Interpretation Comments Eosinophils # (test code 0.0 See_Comment N [A utomated message] The = Eosinophils #) system whic h generated this result tra nsmitted reference range : <=0.5. The reference r leo was not used to int erpret this result as normal/abnormal . [facility] HospitalMpnmjswMCIMFJQNXK8295-64-21 20:00:00 Test Item Value Reference Range Interpretation Comments Basophils # (test code 0.0 See_Comment N [Aut omated message] The = Basophils #) system which generated this result tra nsmitted reference range : <=0.2. The reference r leo was not used to int erpret this result as normal/abnormal . [facility] HospitalDnwjbucZNSOQYOMJO2079-20-45 20:00:00 Test Item Value Reference Range Interpretation Comments Neut Vac (test code = Slight *ABN*(11/28/2011 A Neut Vac) 15:00:00) [facility] HospitalGdxpkldAHHBVUVKEL5652-99-33 20:00:00 Test Item Value Reference Range Interpretation Comments Large Plt (test code = Slight *ABN*(11/28/2011 A Large Plt) 15:00:00) [facility] HospitalPywcvkaKRWUTHYMUY9362-83-52 20:00:00 Test Item Value Reference Range Interpretation Comments Segs-Bands # (test code = Segs-Bands #) 5.7 1.5-8.1 N [facility] HospitalVaiucrhNPFWHRUMKD7967-60-23 20:00:00 Test Item Value Reference Range Interpretation Comments Lymphocytes # (test code = Lymphocytes 0.8 1.0-5.5 L #) [facility] HospitalZvluzgvZYCACMPXPE9242-04-86 20:00:00 Test Item Value Reference Range Interpretation Comments Eosinophils (test code = 0.2 See_Comment N [A utomated message] The Eosinophils) system which ge nerated this result tra nsmitted reference range : <=4.0. The reference r leo was not used to int erpret this result as normal/abnormal . [facility] HospitalXtdtwzuDSMQVGBALS1935-92-55 20:00:00 Test Item Value Reference Range Interpretation Comments Basophils (test code = 0.0 See_Comment N [Aut omated message] The Basophils) system which ge nerated this result tra nsmitted reference range : <=1.0. The reference r leo was not used to int erpret this result as normal/abnormal . [facility] HospitalLowanqwTTIMDHABND1313-42-26 20:00:00 Test Item Value Reference Range Interpretation Comments Monocytes (test code = Monocytes) 1.9 2.0-12.0 L [facility] HospitalWnxwzjnRPAYTXUJGC6225-16-66 20:00:00 Test Item Value Reference Range Interpretation Comments Segs (test code = Segs) 86.2 45.0-75.0 H [facility] HospitalKspmbilJYMNWDPAAH0506-36-08 20:00:00 Test Item Value Reference Range Interpretation Comments Lymphocytes (test code = Lymphocytes) 11.7 20.0-40.0 L [facility] HospitalNfrtyfyNTLOTWCGQV4489-02-88 20:00:00 Test Item Value Reference Range Interpretation Comments MPV (test code = MPV) 10.8 7.4-10.4 H [facility] HospitalNubccpdZIGPACABYE5060-05-79 20:00:00 Test Item Value Reference Range Interpretation Comments Platelet (test code = Platelet) 161 133-450 N [facility] HospitalIxbievaMUXXXJMSCP2856-84-88 20:00:00 Test Item Value Reference Range Interpretation Comments MCHC (test code = MCHC) 35.6 32.0-36.0 N [facility] HospitalKmnmbpgOVNGWNWSDJ4512-44-35 20:00:00 Test Item Value Reference Range Interpretation Comments RDW (test code = RDW) 12.4 11.5-14.5 N [facility] HospitalZqdveqxQJIDMFPGNK4967-40-34 20:00:00 Test Item Value Reference Range Interpretation Comments MCH (test code = MCH) 30.7 pg 27.0-31.0 N [facility] HospitalFkymsdwFKJEJVPSYL0670-36-39 20:00:00 Test Item Value Reference Range Interpretation Comments MCV (test code = MCV) 86.1 81.0-99.0 N [facility] HospitalYbfbstdDWTJRYLKJC6848-58-89 20:00:00 Test Item Value Reference Range Interpretation Comments Hct (test code = Hct) 33.6 36.0-48.0 L [facility] HospitalQnkpvlgRNYOVZDCRH9001-46-79 20:00:00 Test Item Value Reference Range Interpretation Comments Hgb (test code = Hgb) 12.0 12.0-16.0 N [facility] HospitalLvfhimcVLZGLQXBEP0693-10-12 20:00:00 Test Item Value Reference Range Interpretation Comments RBC (test code = RBC) 3.90 4.20-5.40 L [facility] HospitalKjyegtiSNGOCZPKAN2744-28-02 20:00:00 Test Item Value Reference Range Interpretation Comments WBC (test code = WBC) 6.6 3.7-10.4 N [facility] CenterLickedwPFTADCBVS8406-65-10 20:00:00 Test Item Value Reference Range Interpretation Comments Lactic Acid Lvl (test code = Lactic 1.6 0.5-2.2 N Acid Lvl) [facility] CenterRofdqvpRDTKGYATX6291-79-07 20:00:00 Test Item Value Reference Range Interpretation Comments Lipase Lvl (test code = Lipase Lvl) 125 73-393 N [facility] CenterTeegfhmISSKQXICP9053-17-59 20:00:00 Test Item Value Reference Range Interpretation Comments Albumin Lvl (test code = Albumin Lvl) 4.2 3.5-5.0 N [facility] CenterLmdelybRVLKRDTYF1947-89-56 20:00:00 Test Item Value Reference Range Interpretation Comments CO2 (test code = CO2) 23 24-32 L [facility] CenterMpstnzpYNQBHEFLT9662-74-03 20:00:00 Test Item Value Reference Range Interpretation Comments Chloride Lvl (test code = Chloride Lvl) 98 95-109 N [facility] CenterGxwsqdmDUYSNJNXY3859-38-36 20:00:00 Test Item Value Reference Range Interpretation Comments Potassium Lvl (test code = Potassium 3.8 3.5-5.1 N Lvl) [facility] CenterAzxkhvfEARSREKQM7434-35-37 20:00:00 Test Item Value Reference Range Interpretation Comments Sodium Lvl (test code = Sodium Lvl) 138 135-145 N [facility] CenterZxywsuyDFFKWQBZV8419-82-60 20:00:00 Test Item Value Reference Range Interpretation Comments Creatinine Lvl (test code = Creatinine 0.7 0.5-1.4 N Lvl) [facility] CenterKijoxlsIGLUNZCNX0483-91-52 20:00:00 Test Item Value Reference Range Interpretation Comments BUN (test code = BUN) 9 7-22 N [facility] CenterKcsfhkhIDAZNRDKB8985-94-33 20:00:00 Test Item Value Reference Range Interpretation Comments Glucose Lvl (test code = Glucose Lvl) 269 70-99 H [facility] CenterZrrcqkhONYLABVVR2869-90-34 20:00:00 Test Item Value Reference Range Interpretation Comments B/C Ratio (test code = B/C Ratio) 13 6-25 N [facility] CenterRjjqvobOXTLSDSSO4138-98-70 20:00:00 Test Item Value Reference Range Interpretation Comments AGAP (test code = AGAP) 20.8 10.0-20.0 H [facility] CenterLgqvojqZJKWWGKHD4985-78-89 20:00:00 Test Item Value Reference Range Interpretation Comments Calcium Lvl (test code = Calcium Lvl) 9.3 8.5-10.5 N [facility] CenterDzyhtbiOMYWHPRCX5938-04-04 20:00:00 Test Item Value Reference Range Interpretation Comments Total Protein (test code = Total 6.7 6.4-8.4 N Protein) [facility] CenterTtiaxgnIHEQGFKIH0371-53-03 20:00:00 Test Item Value Reference Range Interpretation Comments A/G Ratio (test code = A/G Ratio) 1.7 0.7-1.6 H [facility] CenterFdmofgkJLXEEMQHU5083-35-13 20:00:00 Test Item Value Reference Range Interpretation Comments Globulin (test code = Globulin) 2.5 2.0-4.0 N [facility] CenterOxppacgVMHCVGQZE5732-54-08 20:00:00 Test Item Value Reference Range Interpretation Comments AST (test code = AST) 18 See_Comment N [Auto mated message] The system which ge nerated this result transmit rohit reference range : <=37. The reference range was not used to interpr et this result as reji l/abnormal. [facility] CenterLreukgtXNGEQRATB5533-10-60 20:00:00 Test Item Value Reference Range Interpretation Comments Alk Phos (test code = Alk Phos) 62 39-136 N [facility] CenterJpdtkjuIGFHAZQAG2605-76-95 20:00:00 Test Item Value Reference Range Interpretation Comments ALT (test code = ALT) 32 See_Comment N [Auto mated message] The system which ge nerated this result transmit rohit reference range : <=65. The reference range was not used to interpr et this result as reji l/abnormal. [facility] CenterFzmsrokXRGPFFVZF3483-80-75 20:00:00 Test Item Value Reference Range Interpretation Comments Bili Total (test code = Bili Total) 0.7 0.2-1.3 N [facility] HospitalJfzgghxAQAHXYMUXK1303-03-64 20:00:00 Test Item Value Reference Range Interpretation Comments Anisocyte (test code = 1+ *ABN*(11/28/2011 A Anisocyte) 15:00:00) [facility] HospitalOqcxycmMZINEHHQYS4098-16-05 20:00:00 Test Item Value Reference Range Interpretation Comments Monocytes # (test code 0.1 See_Comment N [Aut omated message] The = Monocytes #) system which generated this result tra nsmitted reference range : <=0.8. The reference r leo was not used to int erpret this result as normal/abnormal . [facility] HospitalLzwggtvPRZGUZEBRC4364-25-87 20:00:00 Test Item Value Reference Range Interpretation Comments Eosinophils # (test code 0.0 See_Comment N [A utomated message] The = Eosinophils #) system [facility] h generated this result tra nsmitted reference range : <=0.5. The reference r leo was not used to int erpret this result as normal/abnormal . [facility] HospitalNofpuwlKPOWSIRCMH7143-20-47 20:00:00 Test Item Value Reference Range Interpretation Comments Basophils # (test code 0.0 See_Comment N [Aut omated message] The = Basophils #) system which generated this result tra nsmitted reference range : <=0.2. The reference r leo was not used to int erpret this result as normal/abnormal . [facility] HospitalNohlturYVLUXYQMMU2598-73-98 20:00:00 Test Item Value Reference Range Interpretation Comments Neut Vac (test code = Slight *ABN*(11/28/2011 A Neut Vac) 15:00:00) [facility] HospitalHzvwjulDMIEMKWITB5482-32-66 20:00:00 Test Item Value Reference Range Interpretation Comments Large Plt (test code = Slight *ABN*(11/28/2011 A Large Plt) 15:00:00) [facility] HospitalZktqewmZMHQFROWBU7958-04-10 20:00:00 Test Item Value Reference Range Interpretation Comments Segs-Bands # (test code = Segs-Bands #) 5.7 1.5-8.1 N [facility] HospitalAhdnnzdLQUKBKNPMZ8758-28-54 20:00:00 Test Item Value Reference Range Interpretation Comments Lymphocytes # (test code = Lymphocytes 0.8 1.0-5.5 L #) [facility] HospitalYwpwejfRDGFHIENJR2242-73-06 20:00:00 Test Item Value Reference Range Interpretation Comments Eosinophils (test code = 0.2 See_Comment N [A utomated message] The Eosinophils) system which ge nerated this result tra nsmitted reference range : <=4.0. The reference r leo was not used to int erpret this result as normal/abnormal . [facility] HospitalStttbugXBWADQZNRE0861-33-39 20:00:00 Test Item Value Reference Range Interpretation Comments Basophils (test code = 0.0 See_Comment N [Aut omated message] The Basophils) system which ge nerated this result tra nsmitted reference range : <=1.0. The reference r leo was not used to int erpret this result as normal/abnormal . [facility] HospitalNputnijLFUOBSBMBH1405-67-57 20:00:00 Test Item Value Reference Range Interpretation Comments Monocytes (test code = Monocytes) 1.9 2.0-12.0 L [facility] HospitalJamogmsAYCUDMFZIC9618-39-06 20:00:00 Test Item Value Reference Range Interpretation Comments Segs (test code = Segs) 86.2 45.0-75.0 H [facility] HospitalKpqsucmXXMORDYDFA0536-44-20 20:00:00 Test Item Value Reference Range Interpretation Comments Lymphocytes (test code = Lymphocytes) 11.7 20.0-40.0 L [facility] HospitalUkjeilhVFXMLGGVCI2895-57-28 20:00:00 Test Item Value Reference Range Interpretation Comments MPV (test code = MPV) 10.8 7.4-10.4 H [facility] HospitalMzaergeRGYGOFRATS2292-71-63 20:00:00 Test Item Value Reference Range Interpretation Comments Platelet (test code = Platelet) 161 133-450 N [facility] HospitalWxfaelfHGDJIZMTEL6838-68-04 20:00:00 Test Item Value Reference Range Interpretation Comments MCHC (test code = MCHC) 35.6 32.0-36.0 N [facility] HospitalGzogneeIWLPXAMCVJ7218-38-89 20:00:00 Test Item Value Reference Range Interpretation Comments RDW (test code = RDW) 12.4 11.5-14.5 N [facility] HospitalUunhwjiIJLDFFJKWG9699-95-66 20:00:00 Test Item Value Reference Range Interpretation Comments MCH (test code = MCH) 30.7 pg 27.0-31.0 N [facility] HospitalKybolyjMPIZOAXXQG8379-84-34 20:00:00 Test Item Value Reference Range Interpretation Comments MCV (test code = MCV) 86.1 81.0-99.0 N [facility] HospitalHresjzaVTPLISZYDT3683-58-28 20:00:00 Test Item Value Reference Range Interpretation Comments Hct (test code = Hct) 33.6 36.0-48.0 L [facility] HospitalUraghaiEFOVAXMOFV8933-57-70 20:00:00 Test Item Value Reference Range Interpretation Comments Hgb (test code = Hgb) 12.0 12.0-16.0 N [facility] HospitalHscujpwXUXEMCLYIR7093-82-67 20:00:00 Test Item Value Reference Range Interpretation Comments RBC (test code = RBC) 3.90 4.20-5.40 L [facility] HospitalEwlepveKIWLGHEIJT9053-86-43 20:00:00 Test Item Value Reference Range Interpretation Comments WBC (test code = WBC) 6.6 3.7-10.4 N [facility] CenterEqqbakhJJPFBRYXR0064-49-43 20:00:00 Test Item Value Reference Range Interpretation Comments Lactic Acid Lvl (test code = Lactic 1.6 0.5-2.2 N Acid Lvl) [facility] CenterEoyxlebQCLKKZVNB1690-59-17 20:00:00 Test Item Value Reference Range Interpretation Comments Lipase Lvl (test code = Lipase Lvl) 125 73-393 N [facility] CenterUdtrunxYJJNFIEVK8137-00-86 20:00:00 Test Item Value Reference Range Interpretation Comments Albumin Lvl (test code = Albumin Lvl) 4.2 3.5-5.0 N [facility] CenterRbcvfqzUIOGFZPQC7276-37-46 20:00:00 Test Item Value Reference Range Interpretation Comments CO2 (test code = CO2) 23 24-32 L [facility] CenterZmsnjkkJJCVUDYFT0477-90-38 20:00:00 Test Item Value Reference Range Interpretation Comments Chloride Lvl (test code = Chloride Lvl) 98 95-109 N [facility] CenterJmacbmzWVAMOGIZJ4738-31-11 20:00:00 Test Item Value Reference Range Interpretation Comments Potassium Lvl (test code = Potassium 3.8 3.5-5.1 N Lvl) [facility] CenterOwjvtoxAPZSHHCCL9295-21-49 20:00:00 Test Item Value Reference Range Interpretation Comments Sodium Lvl (test code = Sodium Lvl) 138 135-145 N [facility] CenterOevgdrhPIBLHIJPW0245-19-85 20:00:00 Test Item Value Reference Range Interpretation Comments Creatinine Lvl (test code = Creatinine 0.7 0.5-1.4 N Lvl) [facility] CenterEthyzxiKKCXDYJOS4788-21-21 20:00:00 Test Item Value Reference Range Interpretation Comments BUN (test code = BUN) 9 7-22 N [facility] CenterNsghdlpGLYCLYYXG3997-56-53 20:00:00 Test Item Value Reference Range Interpretation Comments Glucose Lvl (test code = Glucose Lvl) 269 70-99 H [facility] CenterApiqztwDKOFVHVBR1621-73-21 20:00:00 Test Item Value Reference Range Interpretation Comments B/C Ratio (test code = B/C Ratio) 13 6-25 N [facility] CenterAxoofyyYOHWGVQAC9199-43-66 20:00:00 Test Item Value Reference Range Interpretation Comments AGAP (test code = AGAP) 20.8 10.0-20.0 H [facility] CenterLmatfrpPSXRNOXQL9491-32-38 20:00:00 Test Item Value Reference Range Interpretation Comments Calcium Lvl (test code = Calcium Lvl) 9.3 8.5-10.5 N [facility] CenterOejtpbuHCHATXIYV3215-09-62 20:00:00 Test Item Value Reference Range Interpretation Comments Total Protein (test code = Total 6.7 6.4-8.4 N Protein) [facility] CenterLmtnwhpHUZDDTZQA6925-34-61 20:00:00 Test Item Value Reference Range Interpretation Comments A/G Ratio (test code = A/G Ratio) 1.7 0.7-1.6 H [facility] CenterFrpcxrrNHPMYTVBB9447-68-42 20:00:00 Test Item Value Reference Range Interpretation Comments Globulin (test code = Globulin) 2.5 2.0-4.0 N [facility] CenterQzfuspgPCCGOUHTT7749-52-54 20:00:00 Test Item Value Reference Range Interpretation Comments AST (test code = AST) 18 See_Comment N [Auto mated message] The system which ge nerated this result transmit rohit reference range : <=37. The reference range was not used to interpr et this result as reji l/abnormal. [facility] CenterJffvjadIDBKCYOMW5619-77-57 20:00:00 Test Item Value Reference Range Interpretation Comments Alk Phos (test code = Alk Phos) 62 39-136 N [facility] CenterIluewpoEHDICYDQV1725-76-18 20:00:00 Test Item Value Reference Range Interpretation Comments ALT (test code = ALT) 32 See_Comment N [Auto mated message] The system which ge nerated this result transmit rohit reference range : <=65. The reference range was not used to interpr et this result as reji l/abnormal. [facility] CenterSceafyzRUEBUGYCS6393-20-63 20:00:00 Test Item Value Reference Range Interpretation Comments Bili Total (test code = Bili Total) 0.7 0.2-1.3 N [facility]QhjcwrcCTQHGZVZFR9418-28-95 20:00:00 Test Item Value Reference Range Interpretation Comments Anisocyte (test code = 1+ *ABN*(11/28/2011 A Anisocyte) 15:00:00) [facility] HospitalTyuqdanUMPYDJCFYH2015-98-07 20:00:00 Test Item Value Reference Range Interpretation Comments Monocytes # (test code 0.1 See_Comment N [Aut omated message] The = Monocytes #) system which generated this result tra nsmitted reference range : <=0.8. The reference r leo was not used to int erpret this result as normal/abnormal . [facility] HospitalQynfsdmNWBJQBWHAO2175-62-63 20:00:00 Test Item Value Reference Range Interpretation Comments Eosinophils # (test code 0.0 See_Comment N [A utomated message] The = Eosinophils #) system whic h generated this result tra nsmitted reference range : <=0.5. The reference r leo was not used to int erpret this result as normal/abnormal . [facility] HospitalPudieadDCCYCGEHTI7934-70-54 20:00:00 Test Item Value Reference Range Interpretation Comments Basophils # (test code 0.0 See_Comment N [Aut omated message] The = Basophils #) system which generated this result tra nsmitted reference range : <=0.2. The reference r leo was not used to int erpret this result as normal/abnormal . [facility] HospitalIphtvpfLTXHOYMDFM2539-58-18 20:00:00 Test Item Value Reference Range Interpretation Comments Neut Vac (test code = Slight *ABN*(11/28/2011 A Neut Vac) 15:00:00) [facility] HospitalYmvhroiXFHPSEGFKD9715-32-21 20:00:00 Test Item Value Reference Range Interpretation Comments Large Plt (test code = Slight *ABN*(11/28/2011 A Large Plt) 15:00:00) [facility] HospitalNcuyazqSPJIYUXSPB9539-65-09 20:00:00 Test Item Value Reference Range Interpretation Comments Segs-Bands # (test code = Segs-Bands #) 5.7 1.5-8.1 N [facility] HospitalBttzjnvFJOMHKXBFP9459-68-48 20:00:00 Test Item Value Reference Range Interpretation Comments Lymphocytes # (test code = Lymphocytes 0.8 1.0-5.5 L #) [facility] HospitalToappjbJFQJBNXYMS4683-83-81 20:00:00 Test Item Value Reference Range Interpretation Comments Eosinophils (test code = 0.2 See_Comment N [A utomated message] The Eosinophils) system which ge nerated this result tra nsmitted reference range : <=4.0. The reference r leo was not used to int erpret this result as normal/abnormal . [facility] HospitalOlmpkoyMNBXOQKYWR0998-12-54 20:00:00 Test Item Value Reference Range Interpretation Comments Basophils (test code = 0.0 See_Comment N [Aut omated message] The Basophils) system which ge nerated this result tra nsmitted reference range : <=1.0. The reference r leo was not used to int erpret this result as normal/abnormal . [facility] HospitalSfnvulbBUJEYCYYUY8431-73-20 20:00:00 Test Item Value Reference Range Interpretation Comments Monocytes (test code = Monocytes) 1.9 2.0-12.0 L [facility] HospitalXuudiemZXRLSDJBAK0380-99-72 20:00:00 Test Item Value Reference Range Interpretation Comments Segs (test code = Segs) 86.2 45.0-75.0 H [facility] HospitalTfodnvkXILAGOLKDU4918-12-62 20:00:00 Test Item Value Reference Range Interpretation Comments Lymphocytes (test code = Lymphocytes) 11.7 20.0-40.0 L [facility] HospitalRphukkzACPHZAEHRC5841-61-29 20:00:00 Test Item Value Reference Range Interpretation Comments MPV (test code = MPV) 10.8 7.4-10.4 H [facility] HospitalDaytmqoKCHNNCBOPV2662-47-83 20:00:00 Test Item Value Reference Range Interpretation Comments Platelet (test code = Platelet) 161 133-450 N [facility] HospitalCxxgverJRJYEVDAAP1337-07-62 20:00:00 Test Item Value Reference Range Interpretation Comments MCHC (test code = MCHC) 35.6 32.0-36.0 N [facility] HospitalQvvrgnpDHDKPSLTEP7867-44-36 20:00:00 Test Item Value Reference Range Interpretation Comments RDW (test code = RDW) 12.4 11.5-14.5 N [facility] HospitalRihufsqBJEYWJCRDF6701-12-67 20:00:00 Test Item Value Reference Range Interpretation Comments MCH (test code = MCH) 30.7 pg 27.0-31.0 N [facility] HospitalStylkthHWYWQJGGBH6474-52-45 20:00:00 Test Item Value Reference Range Interpretation Comments MCV (test code = MCV) 86.1 81.0-99.0 N [facility] HospitalOkeddwfNQIVZAZZDZ7667-60-01 20:00:00 Test Item Value Reference Range Interpretation Comments Hct (test code = Hct) 33.6 36.0-48.0 L [facility] HospitalGdfsoarSFBTVMVVYX9700-86-55 20:00:00 Test Item Value Reference Range Interpretation Comments Hgb (test code = Hgb) 12.0 12.0-16.0 N [facility] HospitalSuoaufoIUYPFPBDKE4423-19-84 20:00:00 Test Item Value Reference Range Interpretation Comments RBC (test code = RBC) 3.90 4.20-5.40 L [facility] HospitalKsstconSYEPTDTPXS4412-63-56 20:00:00 Test Item Value Reference Range Interpretation Comments WBC (test code = WBC) 6.6 3.7-10.4 N [facility] CenterEckgiuyRNWGBNIQT0595-80-66 19:51:00 Test Item Value Reference Range Interpretation Comments UDS Note (test code = See Note UDS Note) 5*NA*(11/28/2011 14:51:00) [facility] CenterVombaexRKZKUIYIB2219-22-46 19:51:00 Test Item Value Reference Range Interpretation Comments U Phencyc Scr (test Negative code = U Phencyc Scr) *NA*(11/28/2011 14:51:00) [facility] CenterRumgibsTCJMWKHZW6880-12-34 19:51:00 Test Item Value Reference Range Interpretation Comments U Kelly Scr (test code Negative *NA*(11/28/2011 = U Kelly Scr) 14:51:00) [facility] CenterTvppcqmUQGSTJCFN2463-40-02 19:51:00 Test Item Value Reference Range Interpretation Comments U Amph Scr (test code Negative *NA*(11/28/2011 = U Amph Scr) 14:51:00) [facility] CenterTxpdxiuPUKRBXOWF9769-38-39 19:51:00 Test Item Value Reference Range Interpretation Comments U Opiate Scr (test Negative code = U Opiate Scr) *NA*(11/28/2011 14:51:00) [facility] CenterBlpyevgYUGLORBBO9981-16-86 19:51:00 Test Item Value Reference Range Interpretation Comments U Cocaine Scr (test Negative code = U Cocaine Scr) *NA*(11/28/2011 14:51:00) [facility] CenterLniofhkFFEPRHIXT2711-65-33 19:51:00 Test Item Value Reference Range Interpretation Comments U Cannab Scr (test Negative code = U Cannab Scr) *NA*(11/28/2011 14:51:00) [facility] CenterPycxszrYEJZEEZJY5827-78-66 19:51:00 Test Item Value Reference Range Interpretation Comments U Benzodia Scr (test Negative code = U Benzodia Scr) *NA*(11/28/2011 14:51:00) [facility] CenterFpecenlUPGKMMDXP5929-94-24 19:51:00 Test Item Value Reference Range Interpretation Comments UDS Note (test code = See Note UDS Note) 5*NA*(11/28/2011 14:51:00) [facility] CenterOjrrsukCMVEATUII6041-26-95 19:51:00 Test Item Value Reference Range Interpretation Comments U Phencyc Scr (test Negative code = U Phencyc Scr) *NA*(11/28/2011 14:51:00) [facility] CenterTwkrzgjRHSASIHJZ3774-95-02 19:51:00 Test Item Value Reference Range Interpretation Comments U Kelly Scr (test code Negative *NA*(11/28/2011 = U Kelly Scr) 14:51:00) [facility] CenterBcyhwtmFEWCXBHDC1967-65-56 19:51:00 Test Item Value Reference Range Interpretation Comments U Amph Scr (test code Negative *NA*(11/28/2011 = U Amph Scr) 14:51:00) [facility] CenterMorhhvwEDRZSZLSK2944-80-71 19:51:00 Test Item Value Reference Range Interpretation Comments U Opiate Scr (test Negative code = U Opiate Scr) *NA*(11/28/2011 14:51:00) [facility] CenterAubeahbJPDADUDUX2511-43-16 19:51:00 Test Item Value Reference Range Interpretation Comments U Cocaine Scr (test Negative code = U Cocaine Scr) *NA*(11/28/2011 14:51:00) [facility] CenterTmmtmatZKUGODKPR8826-81-44 19:51:00 Test Item Value Reference Range Interpretation Comments U Cannab Scr (test Negative code = U Cannab Scr) *NA*(11/28/2011 14:51:00) [facility] CenterDrllmydRRYSPBMYD1727-43-39 19:51:00 Test Item Value Reference Range Interpretation Comments U Benzodia Scr (test Negative code = U Benzodia Scr) *NA*(11/28/2011 14:51:00) [facility] CenterAzxshmeKRUNMTGLV8679-34-13 19:51:00 Test Item Value Reference Range Interpretation Comments UDS Note (test code = See Note UDS Note) 5*NA*(11/28/2011 14:51:00) [facility] CenterJwxvjmbROOVSYALP6168-70-50 19:51:00 Test Item Value Reference Range Interpretation Comments U Phencyc Scr (test Negative code = U Phencyc Scr) *NA*(11/28/2011 14:51:00) [facility] CenterYinwwpqEFGDICZJZ6894-30-24 19:51:00 Test Item Value Reference Range Interpretation Comments U Kelly Scr (test code Negative *NA*(11/28/2011 = U Kelly Scr) 14:51:00) [facility] CenterKhajjtrFOPRDCURV6566-62-91 19:51:00 Test Item Value Reference Range Interpretation Comments U Amph Scr (test code Negative *NA*(11/28/2011 = U Amph Scr) 14:51:00) [facility] CenterRsglliaGJOBTZHHQ0707-31-20 19:51:00 Test Item Value Reference Range Interpretation Comments U Opiate Scr (test Negative code = U Opiate Scr) *NA*(11/28/2011 14:51:00) [facility] CenterZqjybjhKPORPDICE2942-93-69 19:51:00 Test Item Value Reference Range Interpretation Comments U Cocaine Scr (test Negative code = U Cocaine Scr) *NA*(11/28/2011 14:51:00) [facility] CenterJoqeyweBWASKBNGP6287-60-41 19:51:00 Test Item Value Reference Range Interpretation Comments U Cannab Scr (test Negative code = U Cannab Scr) *NA*(11/28/2011 14:51:00) [facility] CenterKvpvngkAHLIRFLUF6292-92-91 19:51:00 Test Item Value Reference Range Interpretation Comments U Benzodia Scr (test Negative code = U Benzodia Scr) *NA*(11/28/2011 14:51:00) [facility] CenterKtqamseNKDLLSQLK1894-92-53 19:51:00 Test Item Value Reference Range Interpretation Comments UDS Note (test code = See Note UDS Note) 5*NA*(11/28/2011 14:51:00) [facility] CenterGfqjqioGWATIXVYS3000-15-80 19:51:00 Test Item Value Reference Range Interpretation Comments U Phencyc Scr (test Negative code = U Phencyc Scr) *NA*(11/28/2011 14:51:00) [facility] CenterAgmofxvSNIQEPQQN3196-40-47 19:51:00 Test Item Value Reference Range Interpretation Comments U Kelly Scr (test code Negative *NA*(11/28/2011 = U Kelly Scr) 14:51:00) [facility] CenterQiupgsdXODMFIONB9264-94-20 19:51:00 Test Item Value Reference Range Interpretation Comments U Amph Scr (test code Negative *NA*(11/28/2011 = U Amph Scr) 14:51:00) [facility] CenterJqglnitFGLZALMOT8615-78-14 19:51:00 Test Item Value Reference Range Interpretation Comments U Opiate Scr (test Negative code = U Opiate Scr) *NA*(11/28/2011 14:51:00) [facility] CenterCrtwaeuAHUTVQXKW2252-48-99 19:51:00 Test Item Value Reference Range Interpretation Comments U Cocaine Scr (test Negative code = U Cocaine Scr) *NA*(11/28/2011 14:51:00) [facility] CenterCrhzekyKNJJPORZF3190-03-90 19:51:00 Test Item Value Reference Range Interpretation Comments U Cannab Scr (test Negative code = U Cannab Scr) *NA*(11/28/2011 14:51:00) [facility] CenterKcomyboHZKZGOOCT9406-05-60 19:51:00 Test Item Value Reference Range Interpretation Comments U Benzodia Scr (test Negative code = U Benzodia Scr) *NA*(11/28/2011 14:51:00) [facility] GLUCOSE DGEKVFP3017-24-10 16:20:00 Test Item Value Reference Range Interpretation Comments Comment1 (test code = Comment1) Notify RN/ [facility] GLUCOSE HIMVQPG5738-28-89 16:20:00 Test Item Value Reference Range Interpretation Comments Gluc POC Lifscn (test code = Gluc POC 328 70-99 H Lifscn) [facility] GLUCOSE TSHQWWK8542-44-82 16:20:00 Test Item Value Reference Range Interpretation Comments Comment1 (test code = Comment1) Notify RN/ [facility] GLUCOSE KBKSWOG2086-89-01 16:20:00 Test Item Value Reference Range Interpretation Comments Gluc POC Lifscn (test code = Gluc POC 328 70-99 H Lifscn) [facility] GLUCOSE ERMGRAH5828-62-67 16:20:00 Test Item Value Reference Range Interpretation Comments Comment1 (test code = Comment1) Notify TABATHA/ [facility] GLUCOSE WIIURDF1714-88-82 16:20:00 Test Item Value Reference Range Interpretation Comments Gluc POC Lifscn (test code = Gluc POC 328 70-99 H Lifscn) [facility] GLUCOSE BVYTGZJ6663-35-79 16:20:00 Test Item Value Reference Range Interpretation Comments Comment1 (test code = Comment1) Ravi RN/MD [facility] GLUCOSE FPKTSQU3507-81-20 16:20:00 Test Item Value Reference Range Interpretation Comments Gluc POC Lifscn (test code = Gluc POC 328 70-99 H Lifscn) [facility] [place]GjdfswyXHPVAGRWD1887-90-30 15:30:00 Test Item Value Reference Range Interpretation Comments U Preg (test code = U Negative (09/18/2011 N Preg) 10:30:00) [facility] CenterNpondnuNLMPHUMPCZ2468-68-43 15:30:00 Test Item Value Reference Range Interpretation Comments UA WBC (test code = UA None Seen (09/18/2011 N WBC) 10:30:00) [facility] [place]KshyktuEJRWGXUXGC3365-98-11 15:30:00 Test Item Value Reference Range Interpretation Comments UA RBC (test None Seen See_Comment N [Automated mes pastor] code = UA RBC) (09/18/2011 The system ich 10:30:00) generated this result transmitted ref erence range: <=2. The reference range was not used to int erpret this result as normal/abnormal . [facility] TexasZaptscdKVOJHASOTV7774-25-36 15:30:00 Test Item Value Reference Range Interpretation Comments UA Bacteria (test code = None Seen (09/18/2011 N UA Bacteria) 10:30:00) [facility] [place]WtdjvpvEFGINHFXDA3366-74-21 15:30:00 Test Item Value Reference Range Interpretation Comments UA Amorph Destiny (test Few /HPF A code = UA Amorph Destiny) *ABN*(09/18/2011 10:30:00) [facility] TexasAamtpjbKZWMOOVRUU2589-36-42 15:30:00 Test Item Value Reference Range Interpretation Comments Micro? (test code = Performed (09/18/2011 N Micro?) 10:30:00) [facility] TexasEetkmjiKKEWOJQHAE2288-78-25 15:30:00 Test Item Value Reference Range Interpretation Comments UA Sq Epi (test code = Rare /LPF (09/18/2011 N UA Sq Epi) 10:30:00) [facility] TexasJkhtdtkDMCQJTEQJJ5954-86-12 15:30:00 Test Item Value Reference Range Interpretation Comments UA Ketones (test code = 15 mg/dL A UA Ketones) *ABN*(09/18/2011 10:30:00) [facility] CenterUhyshhzIQRTQWPPEG7793-62-93 15:30:00 Test Item Value Reference Range Interpretation Comments UA Glucose (test code = >=1000 mg/dL A UA Glucose) *ABN*(09/18/2011 10:30:00) [facility] CenterSegmmarGLEQTEPMHE8357-79-06 15:30:00 Test Item Value Reference Range Interpretation Comments UA Protein (test code = Trace A UA Protein) *ABN*(09/18/2011 10:30:00) [facility] CenterEhfoolvEGIIFPAOWC3810-00-08 15:30:00 Test Item Value Reference Range Interpretation Comments UA Urobilinogen (test code = UA 0.2 0.1-1.0 N Urobilinogen) [facility] CenterNxtdunyAMMLSTUAIQ8845-60-79 15:30:00 Test Item Value Reference Range Interpretation Comments UA Blood (test code = Negative (09/18/2011 N UA Blood) 10:30:00) [facility] CenterBwmzkaxHWOZYCAEFD6829-32-66 15:30:00 Test Item Value Reference Range Interpretation Comments UA Bili (test code = Negative *NA*(09/18/2011 UA Bili) 10:30:00) [facility] CenterIqvbjliAKQNMNCLRD5951-91-16 15:30:00 Test Item Value Reference Range Interpretation Comments UA Leuk Est (test Negative (09/18/2011 N code = UA Leuk Est) 10:30:00) [facility] CenterHeqqmhuXLYCTEAUCI4687-58-32 15:30:00 Test Item Value Reference Range Interpretation Comments UA Nitrite (test code Negative (09/18/2011 N = UA Nitrite) 10:30:00) [facility] CenterMpeohedEKIQMDQTHN9279-97-96 15:30:00 Test Item Value Reference Range Interpretation Comments UA pH (test code = UA pH) 7.5 1 5.0-8.0 N [facility] CenterQnlwnoqDLTZCJTZZZ7650-70-29 15:30:00 Test Item Value Reference Range Interpretation Comments UA Spec Grav (test code = UA Spec 1.010 1 N Grav) [facility] CenterZiuvxbpMFMYLIJUSX6130-99-74 15:30:00 Test Item Value Reference Range Interpretation Comments UA Turbidity (test code Slight Cloudy N = UA Turbidity) (09/18/2011 10:30:00) [facility] CenterCtyadrsJWNFADXLKK6643-74-62 15:30:00 Test Item Value Reference Range Interpretation Comments UA Color (test code = Yellow *NA*(09/18/2011 UA Color) 10:30:00) [facility] CenterKajddjfHDQPPXZET0080-42-82 15:30:00 Test Item Value Reference Range Interpretation Comments U Preg (test code = U Negative (09/18/2011 N Preg) 10:30:00) [facility] CenterYrebpwpZKXVFJRBAM1513-88-01 15:30:00 Test Item Value Reference Range Interpretation Comments UA WBC (test code = UA None Seen (09/18/2011 N WBC) 10:30:00) [facility] TexasCjrpugvBRSCZXXBCD3993-24-10 15:30:00 Test Item Value Reference Range Interpretation Comments UA RBC (test None Seen See_Comment N [Automated mes pastor] code = UA RBC) (09/18/2011 The system ich 10:30:00) generated this result transmitted ref erence range: <=2. The reference range was not used to int erpret this result as normal/abnormal . [facility] CenterUwxqvmhMAYLKDHLGY3872-52-66 15:30:00 Test Item Value Reference Range Interpretation Comments UA Bacteria (test code = None Seen (09/18/2011 N UA Bacteria) 10:30:00) [facility] TexasUausknnUXNHPRWLES9519-12-91 15:30:00 Test Item Value Reference Range Interpretation Comments UA Amorph Destiny (test Few /HPF A code = UA Amorph Destiny) *ABN*(09/18/2011 10:30:00) [facility] TexasZoeigzdQZAJXYWVCM0393-50-88 15:30:00 Test Item Value Reference Range Interpretation Comments Micro? (test code = Performed (09/18/2011 N Micro?) 10:30:00) [facility] TexasHmzqbckEWARGHHUSE2193-10-62 15:30:00 Test Item Value Reference Range Interpretation Comments UA Sq Epi (test code = Rare /LPF (09/18/2011 N UA Sq Epi) 10:30:00) [facility] TexasXgbmcctEWJIBCDGWL2223-83-95 15:30:00 Test Item Value Reference Range Interpretation Comments UA Ketones (test code = 15 mg/dL A UA Ketones) *ABN*(09/18/2011 10:30:00) [facility] CenterKrqwilbKYUBBKTIJJ7903-28-89 15:30:00 Test Item Value Reference Range Interpretation Comments UA Glucose (test code = >=1000 mg/dL A UA Glucose) *ABN*(09/18/2011 10:30:00) [facility] CenterSpkbaowDIDCWECRQW2045-58-57 15:30:00 Test Item Value Reference Range Interpretation Comments UA Protein (test code = Trace A UA Protein) *ABN*(09/18/2011 10:30:00) [facility] CenterVhlzkmrTDMMCXDHFI4714-48-10 15:30:00 Test Item Value Reference Range Interpretation Comments UA Urobilinogen (test code = UA 0.2 0.1-1.0 N Urobilinogen) [facility] CenterLflctbeJCWWQAFVVP1136-43-61 15:30:00 Test Item Value Reference Range Interpretation Comments UA Blood (test code = Negative (09/18/2011 N UA Blood) 10:30:00) [facility] CenterUehlfmqWAPVXSUALW4102-72-45 15:30:00 Test Item Value Reference Range Interpretation Comments UA Bili (test code = Negative *NA*(09/18/2011 UA Bili) 10:30:00) [facility] CenterMnrknjfGTJJSKKZFK0669-78-79 15:30:00 Test Item Value Reference Range Interpretation Comments UA Leuk Est (test Negative (09/18/2011 N code = UA Leuk Est) 10:30:00) [facility] CenterIojnnwjSHCIKGYSLD2627-15-34 15:30:00 Test Item Value Reference Range Interpretation Comments UA Nitrite (test code Negative (09/18/2011 N = UA Nitrite) 10:30:00) [facility] CenterWjhtnieCQSCCANJZJ3353-37-78 15:30:00 Test Item Value Reference Range Interpretation Comments UA pH (test code = UA pH) 7.5 1 5.0-8.0 N [facility] CenterFalveutKCHCNSKSFL8314-78-79 15:30:00 Test Item Value Reference Range Interpretation Comments UA Spec Grav (test code = UA Spec 1.010 1 N Grav) [facility] CenterWwmkdgcUYXOOGHMTY3753-05-45 15:30:00 Test Item Value Reference Range Interpretation Comments UA Turbidity (test code Slight Cloudy N = UA Turbidity) (09/18/2011 10:30:00) [facility] TexasSxmvzuzZAFJSARMCE8980-80-72 15:30:00 Test Item Value Reference Range Interpretation Comments UA Color (test code = Yellow *NA*(09/18/2011 UA Color) 10:30:00) [facility] TexasYrpbxrhQUQRLFPPF7057-12-67 15:30:00 Test Item Value Reference Range Interpretation Comments U Preg (test code = U Negative (09/18/2011 N Preg) 10:30:00) [facility] TexasZsrmfomTYMAUZYJMR9084-44-33 15:30:00 Test Item Value Reference Range Interpretation Comments UA WBC (test code = UA None Seen (09/18/2011 N WBC) 10:30:00) [facility] TexasVygiwunWIHSGDKZBO0421-14-56 15:30:00 Test Item Value Reference Range Interpretation Comments UA RBC (test None Seen See_Comment N [Automated mes pastor] code = UA RBC) (09/18/2011 The system wh ich 10:30:00) generated this result transmitted ref erence range: <=2. The reference range was not used to int erpret this result as normal/abnormal . [facility] TexasPuxbvzsIUBKHGODUM4479-62-92 15:30:00 Test Item Value Reference Range Interpretation Comments UA Bacteria (test code = None Seen (09/18/2011 N UA Bacteria) 10:30:00) [facility]QmjegqzKICTXRCPIR4186-32-34 15:30:00 Test Item Value Reference Range Interpretation Comments UA Amorph Destiny (test Few /HPF A code = UA Amorph Destiny) *ABN*(09/18/2011 10:30:00) [facility] TexasHekljftAWJJUKUPTU0043-85-51 15:30:00 Test Item Value Reference Range Interpretation Comments Micro? (test code = Performed (09/18/2011 N Micro?) 10:30:00) [facility] HospitalWapypvlQRYHINWSMF6826-75-90 15:30:00 Test Item Value Reference Range Interpretation Comments UA Sq Epi (test code = Rare /LPF (09/18/2011 N UA Sq Epi) 10:30:00) [facility] HospitalCrbprlkYSVHJINZUU7812-30-29 15:30:00 Test Item Value Reference Range Interpretation Comments UA Ketones (test code = 15 mg/dL A UA Ketones) *ABN*(09/18/2011 10:30:00) [facility]BfaueguLCUBJYTCFD0907-00-31 15:30:00 Test Item Value Reference Range Interpretation Comments UA Glucose (test code = >=1000 mg/dL A UA Glucose) *ABN*(09/18/2011 10:30:00) [facility] CenterSyrqrwxKXMVMJLZWM4182-12-73 15:30:00 Test Item Value Reference Range Interpretation Comments UA Protein (test code = Trace A UA Protein) *ABN*(09/18/2011 10:30:00) [facility] CenterTzllfnvWJEVBNZXQO3357-89-16 15:30:00 Test Item Value Reference Range Interpretation Comments UA Urobilinogen (test code = UA 0.2 0.1-1.0 N Urobilinogen) [facility] CenterIngybriHVWOSWZZGT7533-14-30 15:30:00 Test Item Value Reference Range Interpretation Comments UA Blood (test code = Negative (09/18/2011 N UA Blood) 10:30:00) [facility] CenterMzxquqqEDKSWMYXTQ9147-45-49 15:30:00 Test Item Value Reference Range Interpretation Comments UA Bili (test code = Negative *NA*(09/18/2011 UA Bili) 10:30:00) [facility] CenterLuncvhmOYKETWLLOK4696-79-99 15:30:00 Test Item Value Reference Range Interpretation Comments UA Leuk Est (test Negative (09/18/2011 N code = UA Leuk Est) 10:30:00) [facility] CenterDhgfzsjYBLLWGTUEP5986-97-25 15:30:00 Test Item Value Reference Range Interpretation Comments UA Nitrite (test code Negative (09/18/2011 N = UA Nitrite) 10:30:00) [facility] CenterFrxdxkmIMEVZPWPJS8516-42-02 15:30:00 Test Item Value Reference Range Interpretation Comments UA pH (test code = UA pH) 7.5 1 5.0-8.0 N [facility] CenterWohvczjDZYZSKLVZV3406-45-04 15:30:00 Test Item Value Reference Range Interpretation Comments UA Spec Grav (test code = UA Spec 1.010 1 N Grav) [facility] CenterWsndyflMDMZXKEBMK7064-27-09 15:30:00 Test Item Value Reference Range Interpretation Comments UA Turbidity (test code Slight Cloudy N = UA Turbidity) (09/18/2011 10:30:00) [facility] CenterOztufwkOAXQMQSFHK1839-38-59 15:30:00 Test Item Value Reference Range Interpretation Comments UA Color (test code = Yellow *NA*(09/18/2011 UA Color) 10:30:00) [facility] TexasUajbegeNDIDTJOII2933-32-72 15:30:00 Test Item Value Reference Range Interpretation Comments U Preg (test code = U Negative (09/18/2011 N Preg) 10:30:00) [facility] TexasJcwcjfjOKVZBUDIRK8903-27-53 15:30:00 Test Item Value Reference Range Interpretation Comments UA WBC (test code = UA None Seen (09/18/2011 N WBC) 10:30:00) [facility] TexasYlnvgplPTEFBXIRKJ5058-46-10 15:30:00 Test Item Value Reference Range Interpretation Comments UA RBC (test None Seen See_Comment N [Automated mes pastor] code = UA RBC) (09/18/2011 The system wh ich 10:30:00) generated this result transmitted ref erence range: <=2. The reference range was not used to int erpret this result as normal/abnormal . [facility] TexasIszouccNRPIYNIMLB5594-71-32 15:30:00 Test Item Value Reference Range Interpretation Comments UA Bacteria (test code = None Seen (09/18/2011 N UA Bacteria) 10:30:00) [facility] TexasZoqgrskUMRMKRWSWS8676-24-71 15:30:00 Test Item Value Reference Range Interpretation Comments UA Amorph Destiny (test Few /HPF A code = UA Amorph Destiny) *ABN*(09/18/2011 10:30:00) [facility] HospitalTvlzrvpHCUNKSQZCW9899-75-79 15:30:00 Test Item Value Reference Range Interpretation Comments Micro? (test code = Performed (09/18/2011 N Micro?) 10:30:00) [facility] TexasYanxdfnXIWWVXZDCE0024-94-43 15:30:00 Test Item Value Reference Range Interpretation Comments UA Sq Epi (test code = Rare /LPF (09/18/2011 N UA Sq Epi) 10:30:00) [facility] TexasGpzkbhqXPCVGUXFUU4049-73-75 15:30:00 Test Item Value Reference Range Interpretation Comments UA Ketones (test code = 15 mg/dL A UA Ketones) *ABN*(09/18/2011 10:30:00) [facility] TexasNzlmatoHCXGKBNBBW3863-40-14 15:30:00 Test Item Value Reference Range Interpretation Comments UA Glucose (test code = >=1000 mg/dL A UA Glucose) *ABN*(09/18/2011 10:30:00) [facility] CenterLkwgwreLPWVDTRHKI4294-07-77 15:30:00 Test Item Value Reference Range Interpretation Comments UA Protein (test code = Trace A UA Protein) *ABN*(09/18/2011 10:30:00) [facility] CenterObejejnWGWXIXPJPX4045-96-56 15:30:00 Test Item Value Reference Range Interpretation Comments UA Urobilinogen (test code = UA 0.2 0.1-1.0 N Urobilinogen) [facility] CenterUpqsxfeRAYHDEXFRG5148-35-03 15:30:00 Test Item Value Reference Range Interpretation Comments UA Blood (test code = Negative (09/18/2011 N UA Blood) 10:30:00) [facility] CenterFvjxjezEKLBPYWYTX4271-62-70 15:30:00 Test Item Value Reference Range Interpretation Comments UA Bili (test code = Negative *NA*(09/18/2011 UA Bili) 10:30:00) [facility] CenterFvjehalDUUHCOMIZI1928-98-18 15:30:00 Test Item Value Reference Range Interpretation Comments UA Leuk Est (test Negative (09/18/2011 N code = UA Leuk Est) 10:30:00) [facility] CenterTcvzdtxFKJFSGWTGU1474-11-69 15:30:00 Test Item Value Reference Range Interpretation Comments UA Nitrite (test code Negative (09/18/2011 N = UA Nitrite) 10:30:00) [facility] CenterDstqulgVKTFPTDLYN5030-13-64 15:30:00 Test Item Value Reference Range Interpretation Comments UA pH (test code = UA pH) 7.5 1 5.0-8.0 N [facility] CenterTfnrkzdHQUPCNTHQE1809-12-93 15:30:00 Test Item Value Reference Range Interpretation Comments UA Spec Grav (test code = UA Spec 1.010 1 N Grav) [facility] CenterEeulgltTXDULPRIVG3778-88-04 15:30:00 Test Item Value Reference Range Interpretation Comments UA Turbidity (test code Slight Cloudy N = UA Turbidity) (09/18/2011 10:30:00) [facility] CenterRptyequLZQFCXFOXA1460-31-98 15:30:00 Test Item Value Reference Range Interpretation Comments UA Color (test code = Yellow *NA*(09/18/2011 UA Color) 10:30:00) [facility] CenterByghhzdIFBCJBODQ8388-17-20 14:07:00 Test Item Value Reference Range Interpretation Comments Phosphorus (test code = Phosphorus) 4.4 2.5-4.5 N [facility] CenterQfrwyziQBWMDKXUK3835-66-08 14:07:00 Test Item Value Reference Range Interpretation Comments Magnesium Lvl (test code = Magnesium 1.6 1.8-2.4 L Lvl) [facility] CenterMwasyymYESBQMWXR2870-98-24 14:07:00 Test Item Value Reference Range Interpretation Comments Phosphorus (test code = Phosphorus) 4.4 2.5-4.5 N [facility] CenterZbrudtsOIECUZBLO1942-53-96 14:07:00 Test Item Value Reference Range Interpretation Comments Magnesium Lvl (test code = Magnesium 1.6 1.8-2.4 L Lvl) [facility] CenterJpdjnlhRWYMOVKZZ9985-92-49 14:07:00 Test Item Value Reference Range Interpretation Comments Phosphorus (test code = Phosphorus) 4.4 2.5-4.5 N [facility] CenterOevldeqRTWJIYAHW8152-68-75 14:07:00 Test Item Value Reference Range Interpretation Comments Magnesium Lvl (test code = Magnesium 1.6 1.8-2.4 L Lvl) [facility] CenterOqenzvjBPAEAMKVI8036-86-63 14:07:00 Test Item Value Reference Range Interpretation Comments Phosphorus (test code = Phosphorus) 4.4 2.5-4.5 N [facility] CenterYguqhilAVBKLHXEC7773-97-69 14:07:00 Test Item Value Reference Range Interpretation Comments Magnesium Lvl (test code = Magnesium 1.6 1.8-2.4 L Lvl) [facility] GLUCOSE BXMAGKM1805-71-88 14:01:00 Test Item Value Reference Range Interpretation Comments Gluc POC Lifscn (test code = Gluc POC no gt 70-99 A Lifscn) [facility] GLUCOSE NKGCAIT3750-82-24 14:01:00 Test Item Value Reference Range Interpretation Comments Gluc POC Lifscn (test code = Gluc POC no gt 70-99 A Lifscn) [facility] GLUCOSE RPFHJPT0253-56-38 14:01:00 Test Item Value Reference Range Interpretation Comments Gluc POC Lifscn (test code = Gluc POC no gt 70-99 A Lifscn) [facility] GLUCOSE KAGYTZX9714-10-79 14:01:00 Test Item Value Reference Range Interpretation Comments Gluc POC Lifscn (test code = Gluc POC no gt 70-99 A Lifscn) [facility] CenterZybamitUTIVJTFXR6661-00-25 13:52:00 Test Item Value Reference Range Interpretation Comments pO2 Roberth (test code = pO2 Roberth) 24 20-49 N [facility] CenterYqscnyvSMRZKQDEM5674-74-01 13:52:00 Test Item Value Reference Range Interpretation Comments HCO3 Roberth (test code = HCO3 Roberth) 32.0 22.0-26.0 H [facility] CenterHykydplKTKEBOOHW7886-36-06 13:52:00 Test Item Value Reference Range Interpretation Comments pCO2 Roberth (test code = pCO2 Roberth) 44 38-52 N [facility] CenterVmusvsvMBUFNOIJH1682-39-39 13:52:00 Test Item Value Reference Range Interpretation Comments BE Roberth (test code = 7 See_Comment H [Automa rohit message] The BE Roberth) system which ge nerated this result transmit rohit reference range : <=2. The reference range was not used to interpr et this result as reji l/abnormal. [facility] CenterIxlqiskANCWCIELK0425-01-18 13:52:00 Test Item Value Reference Range Interpretation Comments O2 Sat Roberth (test code = O2 Sat Roberth) 48.0 40.0-70.0 N [facility] CenterSxtqyozESYILIGXQ3306-17-23 13:52:00 Test Item Value Reference Range Interpretation Comments Temp Roberth (test code = Temp Roberth) 37.0 [facility] CenterDvsfubhLJODVYARO2940-02-93 13:52:00 Test Item Value Reference Range Interpretation Comments pH Roberth (test code = pH Roberth) 7.47 7.28-7.42 H [facility] CenterYaktwnrEXZZROUYA9631-31-65 13:52:00 Test Item Value Reference Range Interpretation Comments Calcium Lvl (test code = Calcium Lvl) 10.1 8.5-10.5 N [facility] CenterCrfaafxYFLYFJOXP0344-76-34 13:52:00 Test Item Value Reference Range Interpretation Comments Chloride Lvl (test code = Chloride Lvl) 92 95-109 L [facility] CenterBcyfcrrIMKFZUHUC2275-07-02 13:52:00 Test Item Value Reference Range Interpretation Comments CO2 (test code = CO2) 30 24-32 N [facility] CenterGkfbknpTNCDCYJHK7639-96-18 13:52:00 Test Item Value Reference Range Interpretation Comments Potassium Lvl (test code = Potassium 3.5 3.5-5.1 N Lvl) [facility] CenterZnobzwnEVTRJGNNI3350-15-33 13:52:00 Test Item Value Reference Range Interpretation Comments Sodium Lvl (test code = Sodium Lvl) 133 135-145 L [facility] CenterBdqfofbACJGPMRWH8820-14-17 13:52:00 Test Item Value Reference Range Interpretation Comments Creatinine Lvl (test code = Creatinine 1.3 0.5-1.4 N Lvl) [facility] CenterIssnrtxXUOJMTHDD4947-36-48 13:52:00 Test Item Value Reference Range Interpretation Comments Glucose Lvl (test code = Glucose Lvl) 383 70-99 H [facility] CenterTpwxkqiPSFCBESLS5263-64-58 13:52:00 Test Item Value Reference Range Interpretation Comments BUN (test code = BUN) 17 7-22 N [facility] CenterMalgdskPFKTJLTWD8883-95-10 13:52:00 Test Item Value Reference Range Interpretation Comments AGAP (test code = AGAP) 14.5 10.0-20.0 N [facility] HospitalTayaaenRPOFQTQFKL5132-00-86 13:52:00 Test Item Value Reference Range Interpretation Comments MPV (test code = MPV) 12.0 7.4-10.4 H [facility] HospitalFldeonzJWWPAILFIL1224-84-79 13:52:00 Test Item Value Reference Range Interpretation Comments Platelet (test code = Platelet) 226 133-450 N [facility] HospitalTogrjffDDNMNWTTUO9897-42-05 13:52:00 Test Item Value Reference Range Interpretation Comments MCHC (test code = MCHC) 33.7 32.0-36.0 N [facility] HospitalPibnigtROBCQIPSPF7105-38-52 13:52:00 Test Item Value Reference Range Interpretation Comments MCH (test code = MCH) 28.5 pg 27.0-31.0 N [facility] HospitalFonxmnzQCKSWXEYIN4224-43-28 13:52:00 Test Item Value Reference Range Interpretation Comments RDW (test code = RDW) 15.1 11.5-14.5 H [facility] HospitalWzerrqyZSDAYOTKLV5303-97-43 13:52:00 Test Item Value Reference Range Interpretation Comments MCV (test code = MCV) 84.6 81.0-99.0 N [facility] HospitalAbefgdnCEMOMRWXUK2270-31-41 13:52:00 Test Item Value Reference Range Interpretation Comments Hct (test code = Hct) 36.4 36.0-48.0 N [facility] HospitalEhxrnjuOXVHCEGPNQ3745-18-14 13:52:00 Test Item Value Reference Range Interpretation Comments Hgb (test code = Hgb) 12.3 12.0-16.0 N [facility] HospitalSbnryxkTIKAZZQHRW9246-28-62 13:52:00 Test Item Value Reference Range Interpretation Comments RBC (test code = RBC) 4.30 4.20-5.40 N [facility] HospitalCxalpkkNYMVGLBBTH9326-92-67 13:52:00 Test Item Value Reference Range Interpretation Comments WBC (test code = WBC) 11.7 3.7-10.4 H [facility] HospitalFdlwiyeTWHNSVERIL6493-34-63 13:52:00 Test Item Value Reference Range Interpretation Comments Monocytes (test code = Monocytes) 2.9 2.0-12.0 N [facility] HospitalUcxjsayCOQVPGDPWM2971-27-06 13:52:00 Test Item Value Reference Range Interpretation Comments Eosinophils (test code = 0.2 See_Comment N [A utomated message] The Eosinophils) system which ge nerated this result tra nsmitted reference range : <=4.0. The reference r leo was not used to int erpret this result as normal/abnormal . [facility] HospitalGzqplotZHPEQRDZFM3296-70-14 13:52:00 Test Item Value Reference Range Interpretation Comments Basophils (test code = 0.0 See_Comment N [Aut omated message] The Basophils) system which ge nerated this result tra nsmitted reference range : <=1.0. The reference r leo was not used to int erpret this result as normal/abnormal . [facility] HospitalRbsqgsjLKPMHZOBTU6872-42-47 13:52:00 Test Item Value Reference Range Interpretation Comments Eosinophils # (test code 0.0 See_Comment N [A utomated message] The = Eosinophils #) system wh h generated this result tra nsmitted reference range : <=0.5. The reference r leo was not used to int erpret this result as normal/abnormal . [facility] HospitalSsbpigeYRJGVQKMQM4030-65-48 13:52:00 Test Item Value Reference Range Interpretation Comments Monocytes # (test code 0.3 See_Comment N [Aut omated message] The = Monocytes #) system which generated this result tra nsmitted reference range : <=0.8. The reference r leo was not used to int erpret this result as normal/abnormal . [facility] HospitalXgihosjZAUCHGJOHW2885-57-86 13:52:00 Test Item Value Reference Range Interpretation Comments Segs (test code = Segs) 92.0 45.0-75.0 H [facility] HospitalWvjeizlOZWWIKUMJK4811-63-59 13:52:00 Test Item Value Reference Range Interpretation Comments Lymphocytes (test code = Lymphocytes) 4.9 20.0-40.0 L [facility] HospitalEqeuizmCVLOLQHAOC5914-51-46 13:52:00 Test Item Value Reference Range Interpretation Comments Spherocyte (test code = Rare A Spherocyte) *ABN*(09/18/2011 08:52:00) [facility] HospitalQtrnrqxQVKYAYGNJR6180-93-69 13:52:00 Test Item Value Reference Range Interpretation Comments Large Plt (test code = Slight *ABN*(09/18/2011 A Large Plt) 08:52:00) [facility] HospitalNgnpiyaCPLAYRWALB0458-21-37 13:52:00 Test Item Value Reference Range Interpretation Comments Microcyte (test code = 1+ *ABN*(09/18/2011 A Microcyte) 08:52:00) [facility] HospitalNoevuxbHTPAXAQMZI1045-55-41 13:52:00 Test Item Value Reference Range Interpretation Comments Schistocyte (test code = Schistocyte) Rare [facility] HospitalHfveczaPMUGSPHNPF8424-90-08 13:52:00 Test Item Value Reference Range Interpretation Comments Macrocyte (test code = 1+ *ABN*(09/18/2011 A Macrocyte) 08:52:00) [facility] HospitalCbvtjmtJVSLKDZADZ6220-46-41 13:52:00 Test Item Value Reference Range Interpretation Comments Lymphocytes # (test code = Lymphocytes 0.6 1.0-5.5 L #) [facility] HospitalXyxjhowDUNCVMHHSE5583-83-26 13:52:00 Test Item Value Reference Range Interpretation Comments Segs-Bands # (test code = Segs-Bands #) 10.8 1.5-8.1 H [facility] HospitalPtavbuuIOMTYDJQUO4329-24-63 13:52:00 Test Item Value Reference Range Interpretation Comments Basophils # (test code 0.0 See_Comment N [Aut omated message] The = Basophils #) system which generated this result tra nsmitted reference range : <=0.2. The reference r leo was not used to int erpret this result as normal/abnormal . [facility] HospitalBziwtwyUYEVXHMPMV5115-74-09 13:52:00 Test Item Value Reference Range Interpretation Comments Anisocyte (test code = 1+ *ABN*(09/18/2011 A Anisocyte) 08:52:00) [facility]KzfbihfYXLUHURGUY2562-73-66 13:52:00 Test Item Value Reference Range Interpretation Comments CDC-HIV 1/2 Ab (test Negative *NA*(09/18/2011 code = CDC-HIV 1/2 08:52:00) Ab) [facility] CenterKsmxbofDGFYEHNJO1825-37-17 13:52:00 Test Item Value Reference Range Interpretation Comments pO2 Roberth (test code = pO2 Roberth) 24 20-49 N [facility] CenterFavsecqNIMFBBIIE4603-57-23 13:52:00 Test Item Value Reference Range Interpretation Comments HCO3 Roberth (test code = HCO3 Roberth) 32.0 22.0-26.0 H [facility] CenterEfijwcbYMAJTPKCH9205-76-47 13:52:00 Test Item Value Reference Range Interpretation Comments pCO2 Roberth (test code = pCO2 Roberth) 44 38-52 N [facility] CenterXmxvjxhFCRGOQSXP1585-84-61 13:52:00 Test Item Value Reference Range Interpretation Comments BE Roberth (test code = 7 See_Comment H [Automa rohit message] The BE Roberth) system which ge nerated this result transmit rohit reference range : <=2. The reference range was not used to interpr et this result as reji l/abnormal. [facility] CenterAjqhbxcUSYXQJAID4234-32-96 13:52:00 Test Item Value Reference Range Interpretation Comments O2 Sat Roberth (test code = O2 Sat Roberth) 48.0 40.0-70.0 N [facility] CenterUuxhwrpWBRLOHYUQ7432-03-25 13:52:00 Test Item Value Reference Range Interpretation Comments Temp Roberth (test code = Temp Roberth) 37.0 [facility] CenterVwubpxpTDUQHSCRA5580-74-95 13:52:00 Test Item Value Reference Range Interpretation Comments pH Roberth (test code = pH Roberth) 7.47 7.28-7.42 H [facility] CenterRwjyhxfZOECYKWBC3943-85-36 13:52:00 Test Item Value Reference Range Interpretation Comments Calcium Lvl (test code = Calcium Lvl) 10.1 8.5-10.5 N [facility] CenterAcpqlekZJDUHFPKX9666-95-28 13:52:00 Test Item Value Reference Range Interpretation Comments Chloride Lvl (test code = Chloride Lvl) 92 95-109 L [facility] CenterUxyesnmLSWKGOETE9431-07-08 13:52:00 Test Item Value Reference Range Interpretation Comments CO2 (test code = CO2) 30 24-32 N [facility] CenterClkucmfPKRQWJSXV8951-18-92 13:52:00 Test Item Value Reference Range Interpretation Comments Potassium Lvl (test code = Potassium 3.5 3.5-5.1 N Lvl) [facility] CenterExxnqgpDPKMGRIXV6869-36-30 13:52:00 Test Item Value Reference Range Interpretation Comments Sodium Lvl (test code = Sodium Lvl) 133 135-145 L [facility] CenterUuupinaRBYHRULNO8370-83-15 13:52:00 Test Item Value Reference Range Interpretation Comments Creatinine Lvl (test code = Creatinine 1.3 0.5-1.4 N Lvl) [facility] CenterPnzecydUFXDXDUCW9460-35-34 13:52:00 Test Item Value Reference Range Interpretation Comments Glucose Lvl (test code = Glucose Lvl) 383 70-99 H [facility] CenterFklqlchEKUOXXYPM7068-52-07 13:52:00 Test Item Value Reference Range Interpretation Comments BUN (test code = BUN) 17 7-22 N [facility] CenterYcyberxFSXXSURKP2030-21-77 13:52:00 Test Item Value Reference Range Interpretation Comments AGAP (test code = AGAP) 14.5 10.0-20.0 N [facility] HospitalHzxtkegDADMDTYANW0535-28-46 13:52:00 Test Item Value Reference Range Interpretation Comments MPV (test code = MPV) 12.0 7.4-10.4 H [facility] HospitalXjswdwwYEDTRSPYIU1955-11-70 13:52:00 Test Item Value Reference Range Interpretation Comments Platelet (test code = Platelet) 226 133-450 N [facility] HospitalNxtxkmtBTZLYXWJIR4767-11-19 13:52:00 Test Item Value Reference Range Interpretation Comments MCHC (test code = MCHC) 33.7 32.0-36.0 N [facility] HospitalEclxrezWTHVFKAWYI2582-76-75 13:52:00 Test Item Value Reference Range Interpretation Comments MCH (test code = MCH) 28.5 pg 27.0-31.0 N [facility] HospitalWteqbxhKGOETZBDHT0451-08-77 13:52:00 Test Item Value Reference Range Interpretation Comments RDW (test code = RDW) 15.1 11.5-14.5 H [facility] HospitalPuzuueeFYHQQCOEPC9831-25-78 13:52:00 Test Item Value Reference Range Interpretation Comments MCV (test code = MCV) 84.6 81.0-99.0 N [facility] HospitalAvovwviZSNXLPIXFG0269-65-54 13:52:00 Test Item Value Reference Range Interpretation Comments Hct (test code = Hct) 36.4 36.0-48.0 N [facility] HospitalXqwwbbwHRPZPBGCIU8961-80-19 13:52:00 Test Item Value Reference Range Interpretation Comments Hgb (test code = Hgb) 12.3 12.0-16.0 N [facility] HospitalJzkvdqrAYDIKFLYKE4404-86-27 13:52:00 Test Item Value Reference Range Interpretation Comments RBC (test code = RBC) 4.30 4.20-5.40 N [facility] HospitalTdbsefvXJFYNUSIKO1325-32-86 13:52:00 Test Item Value Reference Range Interpretation Comments WBC (test code = WBC) 11.7 3.7-10.4 H [facility] HospitalKmztzlrOAMJRCGHDW1894-15-37 13:52:00 Test Item Value Reference Range Interpretation Comments Monocytes (test code = Monocytes) 2.9 2.0-12.0 N [facility] HospitalGkmerxoFPUWKBCFJL6447-44-04 13:52:00 Test Item Value Reference Range Interpretation Comments Eosinophils (test code = 0.2 See_Comment N [A utomated message] The Eosinophils) system which ge nerated this result tra nsmitted reference range : <=4.0. The reference r leo was not used to int erpret this result as normal/abnormal . [facility] HospitalXiikiegQZTQJFWRRK3686-20-31 13:52:00 Test Item Value Reference Range Interpretation Comments Basophils (test code = 0.0 See_Comment N [Aut omated message] The Basophils) system which ge nerated this result tra nsmitted reference range : <=1.0. The reference r leo was not used to int erpret this result as normal/abnormal . [facility] HospitalAmizdroKJMXMIOCQE1975-25-37 13:52:00 Test Item Value Reference Range Interpretation Comments Eosinophils # (test code 0.0 See_Comment N [A utomated message] The = Eosinophils #) system whic h generated this result tra nsmitted reference range : <=0.5. The reference r leo was not used to int erpret this result as normal/abnormal . [facility] HospitalVlmacreGMVYACFMEE0664-12-05 13:52:00 Test Item Value Reference Range Interpretation Comments Monocytes # (test code 0.3 See_Comment N [Aut omated message] The = Monocytes #) system which generated this result tra nsmitted reference range : <=0.8. The reference r leo was not used to int erpret this result as normal/abnormal . [facility] HospitalNplkytaBVPJJTRXIK0969-45-85 13:52:00 Test Item Value Reference Range Interpretation Comments Segs (test code = Segs) 92.0 45.0-75.0 H [facility] HospitalDdtbnhcKICTFFBYBP8884-86-24 13:52:00 Test Item Value Reference Range Interpretation Comments Lymphocytes (test code = Lymphocytes) 4.9 20.0-40.0 L [facility] HospitalEhlvsmkAUPBMYWAPQ1478-76-62 13:52:00 Test Item Value Reference Range Interpretation Comments Spherocyte (test code = Rare A Spherocyte) *ABN*(09/18/2011 08:52:00) [facility] HospitalEhpghfdQFYKBNLEXU1755-40-28 13:52:00 Test Item Value Reference Range Interpretation Comments Large Plt (test code = Slight *ABN*(09/18/2011 A Large Plt) 08:52:00) [facility] HospitalIcgirngVTODEXBTLN1177-41-65 13:52:00 Test Item Value Reference Range Interpretation Comments Microcyte (test code = 1+ *ABN*(09/18/2011 A Microcyte) 08:52:00) [facility] HospitalYpbpjxgRIODZSPLHC4848-71-33 13:52:00 Test Item Value Reference Range Interpretation Comments Schistocyte (test code = Schistocyte) Rare [facility] HospitalZboylcaLPBSGMVBPI3921-64-55 13:52:00 Test Item Value Reference Range Interpretation Comments Macrocyte (test code = 1+ *ABN*(09/18/2011 A Macrocyte) 08:52:00) [facility] HospitalLkmbzmvATJMZEMHIO8003-42-00 13:52:00 Test Item Value Reference Range Interpretation Comments Lymphocytes # (test code = Lymphocytes 0.6 1.0-5.5 L #) [facility] HospitalXgkzptnJVKIPWCPAU4884-79-10 13:52:00 Test Item Value Reference Range Interpretation Comments Segs-Bands # (test code = Segs-Bands #) 10.8 1.5-8.1 H [facility] HospitalCzwcmamBNZDDFGWBT3539-37-26 13:52:00 Test Item Value Reference Range Interpretation Comments Basophils # (test code 0.0 See_Comment N [Aut omated message] The = Basophils #) system which generated this result tra nsmitted reference range : <=0.2. The reference r leo was not used to int erpret this result as normal/abnormal . [facility] HospitalKpdlayoHIWRDQGPSF4700-30-23 13:52:00 Test Item Value Reference Range Interpretation Comments Anisocyte (test code = 1+ *ABN*(09/18/2011 A Anisocyte) 08:52:00) [facility]DfjmqdrPWYCLAUJTL9322-48-26 13:52:00 Test Item Value Reference Range Interpretation Comments CDC-HIV 1/2 Ab (test Negative *NA*(09/18/2011 code = CDC-HIV 1/2 08:52:00) Ab) [facility] CenterMuoyorhQRQUMUQAR6396-06-43 13:52:00 Test Item Value Reference Range Interpretation Comments pO2 Roberth (test code = pO2 Roberth) 24 20-49 N [facility] CenterPwmozjrBYQGNFIYN9580-03-04 13:52:00 Test Item Value Reference Range Interpretation Comments HCO3 Roberth (test code = HCO3 Roberth) 32.0 22.0-26.0 H [facility] CenterSywokcxNOLBQYFOG6882-67-73 13:52:00 Test Item Value Reference Range Interpretation Comments pCO2 Roberth (test code = pCO2 Roberth) 44 38-52 N [facility] CenterMoxlagzXCUNBQYKL3577-01-20 13:52:00 Test Item Value Reference Range Interpretation Comments BE Roberth (test code = 7 See_Comment H [Automa rohit message] The BE Roberth) system which ge nerated this result transmit rohit reference range : <=2. The reference range was not used to interpr et this result as reji l/abnormal. [facility] CenterJtakzziEGPUDBSJZ2743-12-62 13:52:00 Test Item Value Reference Range Interpretation Comments O2 Sat Roberth (test code = O2 Sat Roberth) 48.0 40.0-70.0 N [facility] CenterWqbnmjeVZNNLRRCJ1682-46-04 13:52:00 Test Item Value Reference Range Interpretation Comments Temp Roberth (test code = Temp Roberth) 37.0 [facility] CenterHrdsvcaWHIXXACPS4075-72-16 13:52:00 Test Item Value Reference Range Interpretation Comments pH Roberth (test code = pH Roberth) 7.47 7.28-7.42 H [facility] CenterNlionioFVBIUIGZY4064-77-10 13:52:00 Test Item Value Reference Range Interpretation Comments Calcium Lvl (test code = Calcium Lvl) 10.1 8.5-10.5 N [facility] CenterHcomvqsHNXORCWNY5632-85-91 13:52:00 Test Item Value Reference Range Interpretation Comments Chloride Lvl (test code = Chloride Lvl) 92 95-109 L [facility] CenterWrptiprYZUKLOABU0997-22-86 13:52:00 Test Item Value Reference Range Interpretation Comments CO2 (test code = CO2) 30 24-32 N [facility] CenterUmjzoheSVTMEXFMH3440-90-32 13:52:00 Test Item Value Reference Range Interpretation Comments Potassium Lvl (test code = Potassium 3.5 3.5-5.1 N Lvl) [facility] CenterGetwivfVWCWLAKSR7286-24-59 13:52:00 Test Item Value Reference Range Interpretation Comments Sodium Lvl (test code = Sodium Lvl) 133 135-145 L [facility] CenterFmcxflaHGLIMRMBQ6631-67-49 13:52:00 Test Item Value Reference Range Interpretation Comments Creatinine Lvl (test code = Creatinine 1.3 0.5-1.4 N Lvl) [facility] CenterEwlwwznQNQKYWWNU6112-25-69 13:52:00 Test Item Value Reference Range Interpretation Comments Glucose Lvl (test code = Glucose Lvl) 383 70-99 H [facility] CenterUguoisrFIMLULJMF2355-28-28 13:52:00 Test Item Value Reference Range Interpretation Comments BUN (test code = BUN) 17 7-22 N [facility] CenterNjnafdyFNXNAJVOX6817-24-93 13:52:00 Test Item Value Reference Range Interpretation Comments AGAP (test code = AGAP) 14.5 10.0-20.0 N [facility] HospitalVftisgeXTGCOVNZHV6135-67-67 13:52:00 Test Item Value Reference Range Interpretation Comments MPV (test code = MPV) 12.0 7.4-10.4 H [facility] HospitalWlgdhfvSIWWRSRXGD5945-76-46 13:52:00 Test Item Value Reference Range Interpretation Comments Platelet (test code = Platelet) 226 133-450 N [facility] HospitalBieryjhLJXGKIIVYG9759-62-18 13:52:00 Test Item Value Reference Range Interpretation Comments MCHC (test code = MCHC) 33.7 32.0-36.0 N [facility] HospitalNezndzgQTQPVOQXVJ7590-36-38 13:52:00 Test Item Value Reference Range Interpretation Comments MCH (test code = MCH) 28.5 pg 27.0-31.0 N [facility] HospitalLmmmdgaGUVWPVYMJH5496-97-70 13:52:00 Test Item Value Reference Range Interpretation Comments RDW (test code = RDW) 15.1 11.5-14.5 H [facility] HospitalThwptwlLGRNRBHHIY9944-06-61 13:52:00 Test Item Value Reference Range Interpretation Comments MCV (test code = MCV) 84.6 81.0-99.0 N [facility] HospitalGbwgwkrOREJADSGDM4029-56-20 13:52:00 Test Item Value Reference Range Interpretation Comments Hct (test code = Hct) 36.4 36.0-48.0 N [facility] HospitalLacefpgUHVFBUGTQZ9214-12-08 13:52:00 Test Item Value Reference Range Interpretation Comments Hgb (test code = Hgb) 12.3 12.0-16.0 N [place] 636892-03-30 13:52:00 Test Item Value Reference Range Interpretation Comments RBC (test code = RBC) 4.30 4.20-5.40 N [facility] HospitalMqwacrqPVKHDAGTPZ9115-02-84 13:52:00 Test Item Value Reference Range Interpretation Comments WBC (test code = WBC) 11.7 3.7-10.4 H [facility] HospitalQyxmzblYEQRCWEZRI4415-53-04 13:52:00 Test Item Value Reference Range Interpretation Comments Monocytes (test code = Monocytes) 2.9 2.0-12.0 N [facility] HospitalMvfruvjTBUWAGBWEA1739-83-22 13:52:00 Test Item Value Reference Range Interpretation Comments Eosinophils (test code = 0.2 See_Comment N [A utomated message] The Eosinophils) system which ge nerated this result tra nsmitted reference range : <=4.0. The reference r leo was not used to int erpret this result as normal/abnormal . [facility] HospitalTiktppiSIBOAMSXGC9900-95-78 13:52:00 Test Item Value Reference Range Interpretation Comments Basophils (test code = 0.0 See_Comment N [Aut omated message] The Basophils) system which ge nerated this result tra nsmitted reference range : <=1.0. The reference r leo was not used to int erpret this result as normal/abnormal . [facility] HospitalRnkfzfwIXBDKKJONK0972-73-85 13:52:00 Test Item Value Reference Range Interpretation Comments Eosinophils # (test code 0.0 See_Comment N [A utomated message] The = Eosinophils #) system whic h generated this result tra nsmitted reference range : <=0.5. The reference r leo was not used to int erpret this result as normal/abnormal . [facility] HospitalAabizgxRKIUCONDNW1079-50-40 13:52:00 Test Item Value Reference Range Interpretation Comments Monocytes # (test code 0.3 See_Comment N [Aut omated message] The = Monocytes #) system which generated this result tra nsmitted reference range : <=0.8. The reference r leo was not used to int erpret this result as normal/abnormal . [facility] HospitalFrcjkhkTPHURBGYFB2203-53-57 13:52:00 Test Item Value Reference Range Interpretation Comments Segs (test code = Segs) 92.0 45.0-75.0 H [facility] HospitalYaopjmaEQAFOYPQFS8147-41-57 13:52:00 Test Item Value Reference Range Interpretation Comments Lymphocytes (test code = Lymphocytes) 4.9 20.0-40.0 L [facility] HospitalVkallegTIWQCFAOSF2470-50-29 13:52:00 Test Item Value Reference Range Interpretation Comments Spherocyte (test code = Rare A Spherocyte) *ABN*(09/18/2011 08:52:00) [facility] HospitalMfgzmwpVHCZBCRUNT2725-85-64 13:52:00 Test Item Value Reference Range Interpretation Comments Large Plt (test code = Slight *ABN*(09/18/2011 A Large Plt) 08:52:00) [facility] HospitalAhloyigGEFQITDZDL4162-06-05 13:52:00 Test Item Value Reference Range Interpretation Comments Microcyte (test code = 1+ *ABN*(09/18/2011 A Microcyte) 08:52:00) [facility] HospitalHiabmnqSRLDYHZCPK1886-04-94 13:52:00 Test Item Value Reference Range Interpretation Comments Schistocyte (test code = Schistocyte) Rare [facility] HospitalXtqokveDWIVKBRUZN7434-20-99 13:52:00 Test Item Value Reference Range Interpretation Comments Macrocyte (test code = 1+ *ABN*(09/18/2011 A Macrocyte) 08:52:00) [facility] HospitalMsinarkPQCIPHEZXJ5360-36-13 13:52:00 Test Item Value Reference Range Interpretation Comments Lymphocytes # (test code = Lymphocytes 0.6 1.0-5.5 L #) [facility] HospitalZegtxpvHZSYVDECCQ5091-48-50 13:52:00 Test Item Value Reference Range Interpretation Comments Segs-Bands # (test code = Segs-Bands #) 10.8 1.5-8.1 H [facility] HospitalHnkixrtPQLMDLHBSL4579-41-01 13:52:00 Test Item Value Reference Range Interpretation Comments Basophils # (test code 0.0 See_Comment N [Aut omated message] The = Basophils #) system which generated this result tra nsmitted reference range : <=0.2. The reference r leo was not used to int erpret this result as normal/abnormal . [facility] HospitalHjkicypXTLHYZDYES4701-26-32 13:52:00 Test Item Value Reference Range Interpretation Comments Anisocyte (test code = 1+ *ABN*(09/18/2011 A Anisocyte) 08:52:00) [facility]AYYATVSNDX0845-[facility] 13:52:00 Test Item Value Reference Range Interpretation Comments CDC-HIV 1/2 Ab (test Negative *NA*(09/18/2011 code = CDC-HIV 1/2 08:52:00) Ab) [facility] CenterStowhayTLYHZPGMD7589-82-65 13:52:00 Test Item Value Reference Range Interpretation Comments pO2 Roberth (test code = pO2 Roberth) 24 20-49 N [facility] CenterSxkprmsDLUMKHELC6763-01-15 13:52:00 Test Item Value Reference Range Interpretation Comments HCO3 Roberth (test code = HCO3 Roberth) 32.0 22.0-26.0 H [facility] CenterBreoojeWJCFFAFEJ7837-22-12 13:52:00 Test Item Value Reference Range Interpretation Comments pCO2 Roberth (test code = pCO2 Roberth) 44 38-52 N [facility] CenterGasfmmmJLNSEXYPR8378-46-80 13:52:00 Test Item Value Reference Range Interpretation Comments BE Roberth (test code = 7 See_Comment H [Automa rohit message] The BE Roberth) system which ge nerated this result transmit rohit reference range : <=2. The reference range was not used to interpr et this result as reji l/abnormal. [facility] CenterBswlgvlMQJFGWDIB2896-10-09 13:52:00 Test Item Value Reference Range Interpretation Comments O2 Sat Roberth (test code = O2 Sat Roberth) 48.0 40.0-70.0 N [facility] CenterTpxoyqpUILEJBXPY4245-89-00 13:52:00 Test Item Value Reference Range Interpretation Comments Temp Roberth (test code = Temp Roberth) 37.0 [facility] CenterOhzlctdWMXLWDUED1621-57-75 13:52:00 Test Item Value Reference Range Interpretation Comments pH Roberth (test code = pH Roberth) 7.47 7.28-7.42 H [facility] CenterDbczhpgQRJSGXXDY3161-42-50 13:52:00 Test Item Value Reference Range Interpretation Comments Calcium Lvl (test code = Calcium Lvl) 10.1 8.5-10.5 N [facility] CenterQoupnevXLUFBMKVY9470-96-11 13:52:00 Test Item Value Reference Range Interpretation Comments Chloride Lvl (test code = Chloride Lvl) 92 95-109 L [facility] CenterOjhwhuyKSWFLNVHQ6734-20-35 13:52:00 Test Item Value Reference Range Interpretation Comments CO2 (test code = CO2) 30 24-32 N [facility] CenterJiokurfSMJDWFMVG8286-63-55 13:52:00 Test Item Value Reference Range Interpretation Comments Potassium Lvl (test code = Potassium 3.5 3.5-5.1 N Lvl) [facility] CenterZiregeeJCKBPRTRQ1275-15-19 13:52:00 Test Item Value Reference Range Interpretation Comments Sodium Lvl (test code = Sodium Lvl) 133 135-145 L [facility] CenterLxoecltAIZAAARCW4380-35-12 13:52:00 Test Item Value Reference Range Interpretation Comments Creatinine Lvl (test code = Creatinine 1.3 0.5-1.4 N Lvl) [facility] CenterZiykeauFCPSWNUSN2860-17-49 13:52:00 Test Item Value Reference Range Interpretation Comments Glucose Lvl (test code = Glucose Lvl) 383 70-99 H [facility] CenterValpxdnEESGEZBYD7897-31-23 13:52:00 Test Item Value Reference Range Interpretation Comments BUN (test code = BUN) 17 7-22 N [facility] CenterIjmrwtqSYEFDOMBR9372-13-13 13:52:00 Test Item Value Reference Range Interpretation Comments AGAP (test code = AGAP) 14.5 10.0-20.0 N [facility] HospitalEezzutcSTAFVMLYVM4323-44-45 13:52:00 Test Item Value Reference Range Interpretation Comments MPV (test code = MPV) 12.0 7.4-10.4 H [facility] HospitalLounmvxJNROZLXBKW2107-63-30 13:52:00 Test Item Value Reference Range Interpretation Comments Platelet (test code = Platelet) 226 133-450 N [facility] HospitalAediivgTSBNHNDRXL2940-18-53 13:52:00 Test Item Value Reference Range Interpretation Comments MCHC (test code = MCHC) 33.7 32.0-36.0 N [facility] HospitalOkpclbgKPNPEOYSFE1249-12-86 13:52:00 Test Item Value Reference Range Interpretation Comments MCH (test code = MCH) 28.5 pg 27.0-31.0 N [facility] HospitalCkvhdeiPAUKBWTMDA0098-26-46 13:52:00 Test Item Value Reference Range Interpretation Comments RDW (test code = RDW) 15.1 11.5-14.5 H [facility] HospitalDrtsrzcNSIYNTYKQZ4534-49-33 13:52:00 Test Item Value Reference Range Interpretation Comments MCV (test code = MCV) 84.6 81.0-99.0 N [facility] HospitalGhqpcypMBYPWWNDES4544-94-48 13:52:00 Test Item Value Reference Range Interpretation Comments Hct (test code = Hct) 36.4 36.0-48.0 N [facility] HospitalOkgjyemTDVECJNVGV4147-97-88 13:52:00 Test Item Value Reference Range Interpretation Comments Hgb (test code = Hgb) 12.3 12.0-16.0 N [facility] HospitalCetmhjdUFRLKLYSBS7971-68-49 13:52:00 Test Item Value Reference Range Interpretation Comments RBC (test code = RBC) 4.30 4.20-5.40 N [facility] HospitalOymmqmaGZDSQMSTVQ9029-28-63 13:52:00 Test Item Value Reference Range Interpretation Comments WBC (test code = WBC) 11.7 3.7-10.4 H [facility] HospitalLqvdspvUENBGMHYIL8949-33-68 13:52:00 Test Item Value Reference Range Interpretation Comments Monocytes (test code = Monocytes) 2.9 2.0-12.0 N [facility] HospitalZwoxsodEKNZDZFHTU8789-51-89 13:52:00 Test Item Value Reference Range Interpretation Comments Eosinophils (test code = 0.2 See_Comment N [A utomated message] The Eosinophils) system which ge nerated this result tra nsmitted reference range : <=4.0. The reference r leo was not used to int erpret this result as normal/abnormal . [facility] HospitalDoymtpoSNRBWCXGIH0176-18-55 13:52:00 Test Item Value Reference Range Interpretation Comments Basophils (test code = 0.0 See_Comment N [Aut omated message] The Basophils) system which ge nerated this result tra nsmitted reference range : <=1.0. The reference r leo was not used to int erpret this result as normal/abnormal . [facility] HospitalWrdqqssVAHQJNBVWC2201-30-93 13:52:00 Test Item Value Reference Range Interpretation Comments Eosinophils # (test code 0.0 See_Comment N [A utomated message] The = Eosinophils #) system whic h generated this result tra nsmitted reference range : <=0.5. The reference r leo was not used to int erpret this result as normal/abnormal . [facility] HospitalTkubhpcMTFFQQKNGH6487-10-46 13:52:00 Test Item Value Reference Range Interpretation Comments Monocytes # (test code 0.3 See_Comment N [Aut omated message] The = Monocytes #) system which generated this result tra nsmitted reference range : <=0.8. The reference r leo was not used to int erpret this result as normal/abnormal . [facility] HospitalMmryxrwYBLBSJQJLK7215-80-86 13:52:00 Test Item Value Reference Range Interpretation Comments Segs (test code = Segs) 92.0 45.0-75.0 H [facility] HospitalAawgljjHWWCNEUAGU1449-67-54 13:52:00 Test Item Value Reference Range Interpretation Comments Lymphocytes (test code = Lymphocytes) 4.9 20.0-40.0 L [facility] HospitalLlhaivzVSWOYDQXTJ1888-21-30 13:52:00 Test Item Value Reference Range Interpretation Comments Spherocyte (test code = Rare A Spherocyte) *ABN*(09/18/2011 08:52:00) [facility] HospitalIfhnfjeOTNEATMBYE3060-45-85 13:52:00 Test Item Value Reference Range Interpretation Comments Large Plt (test code = Slight *ABN*(09/18/2011 A Large Plt) 08:52:00) [facility] HospitalWjckcfeEPCJEFOEOY7495-79-41 13:52:00 Test Item Value Reference Range Interpretation Comments Microcyte (test code = 1+ *ABN*(09/18/2011 A Microcyte) 08:52:00) [facility] HospitalPyatuqiZBQSQJRTWJ3400-87-62 13:52:00 Test Item Value Reference Range Interpretation Comments Schistocyte (test code = Schistocyte) Rare [facility] HospitalHjnpzuhNIEOGQKOAL9143-87-00 13:52:00 Test Item Value Reference Range Interpretation Comments Macrocyte (test code = 1+ *ABN*(09/18/2011 A Macrocyte) 08:52:00) [facility]ExthiulJZTNXGRUSG6966-84-86 13:52:00 Test Item Value Reference Range Interpretation Comments Lymphocytes # (test code = Lymphocytes 0.6 1.0-5.5 L #) [facility] HospitalSprhobhWSCWDGBXUG5165-52-78 13:52:00 Test Item Value Reference Range Interpretation Comments Segs-Bands # (test code = Segs-Bands #) 10.8 1.5-8.1 H [facility] TexasXzfyaarHEUAUNJQRJ0838-14-70 13:52:00 Test Item Value Reference Range Interpretation Comments Basophils # (test code 0.0 See_Comment N [Aut omated message] The = Basophils #) system which generated this result tra nsmitted reference range : <=0.2. The reference r leo was not used to int erpret this result as normal/abnormal . [facility] HospitalKxumxutXAYKTSKEPH5548-27-10 13:52:00 Test Item Value Reference Range Interpretation Comments Anisocyte (test code = 1+ *ABN*(09/18/2011 A Anisocyte) 08:52:00) [facility] TexasPesbipmUSXWZBXNSC1144-29-22 13:52:00 Test Item Value Reference Range Interpretation Comments CDC-HIV 1/2 Ab (test Negative *NA*(09/18/2011 code = CDC-HIV 1/2 08:52:00) Ab) [facility] GLUCOSE XHKRLNG7218-43-07 17:34:00 Test Item Value Reference Range Interpretation Comments Gluc POC Lifscn (test code = Gluc POC 215 70-99 H Lifscn) [facility] GLUCOSE UPJZDTC7200-86-63 17:34:00 Test Item Value Reference Range Interpretation Comments Comment1 (test code = Comment1) Notify TABATHA/ [facility] GLUCOSE BVDPEFI1808-29-61 17:34:00 Test Item Value Reference Range Interpretation Comments Gluc POC Lifscn (test code = Gluc POC 215 70-99 H [facility]) [facility] GLUCOSE HNRSOXT1241-46-35 17:34:00 Test Item Value Reference Range Interpretation Comments Comment1 (test code = Comment1) Notify TABATHA/ [facility] GLUCOSE YCXKPFY2244-55-58 17:34:00 Test Item Value Reference Range Interpretation Comments Gluc POC Lifscn (test code = Gluc POC 215 70-99 H [facility]) [facility] GLUCOSE ACYQUMR2033-64-52 17:34:00 Test Item Value Reference Range Interpretation Comments Comment1 (test code = Comment1) Notify RN/ [facility] GLUCOSE POFEACP8806-86-04 17:34:00 Test Item Value Reference Range Interpretation Comments Gluc POC Lifscn (test code = Gluc POC 215 70-99 H [facility]) [facility] GLUCOSE YTMSEDE6761-05-96 17:34:00 Test Item Value Reference Range Interpretation Comments Comment1 (test code = Comment1) Notify RN/ [facility] GLUCOSE ORIVNFM1213-01-45 11:43:00 Test Item Value Reference Range Interpretation Comments Comment1 (test code = Comment1) Notify RN/ [facility] GLUCOSE OAGUKLJ3586-48-30 11:43:00 Test Item Value Reference Range Interpretation Comments Gluc POC Lifscn (test code = Gluc POC 91 65-110 N [facility]) [facility] GLUCOSE NYSRMII9058-27-77 11:43:00 Test Item Value Reference Range Interpretation Comments Comment1 (test code = Comment1) Notify RN/ [facility] GLUCOSE RMOBUHG8781-42-42 11:43:00 Test Item Value Reference Range Interpretation Comments Gluc POC Lifscn (test code = Gluc POC 91 65-110 N [facility]) [facility] GLUCOSE GHOEBMK1873-02-10 11:43:00 Test Item Value Reference Range Interpretation Comments Comment1 (test code = Comment1) Notify RN/ [facility] GLUCOSE YLOFZFV1828-81-01 11:43:00 Test Item Value Reference Range Interpretation Comments Gluc POC Lifscn (test code = Gluc POC 91 65-110 N [facility]) [facility] GLUCOSE KVFRJJO1702-26-60 11:43:00 Test Item Value Reference Range Interpretation Comments Comment1 (test code = Comment1) Notify RN/ [facility] GLUCOSE YELZFCX7521-01-22 11:43:00 Test Item Value Reference Range Interpretation Comments Gluc POC Lifscn (test code = Gluc POC 91 65-110 N [facility]) [facility] GLUCOSE [id number] 02:45:00 Test Item Value Reference Range Interpretation Comments Comment1 (test code = Comment1) Notify RN/ [facility] GLUCOSE [id number] 02:45:00 Test Item Value Reference Range Interpretation Comments Gluc POC Lifscn (test code = Gluc POC 148 65-110 H Lifscn) [facility] GLUCOSE [id number] 02:45:00 Test Item Value Reference Range Interpretation Comments Comment1 (test code = Comment1) Notify RN/ [facility] GLUCOSE [id number] 02:45:00 Test Item Value Reference Range Interpretation Comments Gluc POC Lifscn (test code = Gluc POC 148 65-110 H Lif[facility]n) [facility] GLUCOSE [id number] 02:45:00 Test Item Value Reference Range Interpretation Comments Comment1 (test code = Comment1) Notify RN/ [facility] GLUCOSE [id number] 02:45:00 Test Item Value Reference Range Interpretation Comments Gluc POC Lifscn (test code = Gluc POC 148 65-110 H Lif[facility]n) [facility] GLUCOSE [id number] 02:45:00 Test Item Value Reference Range Interpretation Comments Comment1 (test code = Comment1) Notify RN/ [facility] GLUCOSE [id number] 02:45:00 Test Item Value Reference Range Interpretation Comments Gluc POC Lifscn (test code = Gluc POC 148 65-110 H Lifscn) [facility] CenterGjfupwzCWZQGXIAM5080-93-58 08:47:00 Test Item Value Reference Range Interpretation Comments Sodium Lvl (test code = Sodium Lvl) 143 135-145 N [facility]ZmwjgbjKBSKQODLR1102-68-39 08:47:00 Test Item Value Reference Range Interpretation Comments Glucose Lvl (test code = Glucose Lvl) 105 [facility] CenterEsuikrpHFSLVPGMU9637-70-04 08:47:00 Test Item Value Reference Range Interpretation Comments CO2 (test code = CO2) 29 24-32 [facility]1940-[facility]-23 08:47:00 Test Item Value Reference Range Interpretation Comments Chloride Lvl (test code = Chloride Lvl) 103 95-109 N [facility]TofjwjcPBWCNFAQZ6016-15-09 08:47:00 Test Item Value Reference Range Interpretation Comments BUN (test code = BUN) 10 7-22 N [facility] CenterVntgnxpNHKDBHEYR8232-90-38 08:47:00 Test Item Value Reference Range Interpretation Comments Potassium Lvl (test code = Potassium 3.8 3.5-5.1 N Lvl) [facility] CenterAqvbolnBWQLEDQVW0776-07-16 08:47:00 Test Item Value Reference Range Interpretation Comments Creatinine Lvl (test code = Creatinine 0.6 0.5-1.4 N Lvl) [facility] CenterVaxjeeyHJPWXTTKV1111-20-46 08:47:00 Test Item Value Reference Range Interpretation Comments Calcium Lvl (test code = Calcium Lvl) 8.5 8.5-10.5 N [facility] CenterEbwugnbHUCMFSVNA7888-42-07 08:47:00 Test Item Value Reference Range Interpretation Comments AGAP (test code = AGAP) 14.8 10.0-20.0 N [facility] HospitalThfijlsSDWEWKWLPO4140-70-82 08:47:00 Test Item Value Reference Range Interpretation Comments MCH (test code = MCH) 28.9 pg 27.0-31.0 N [facility] HospitalBnyjgpoEHOCODISAH7405-30-87 08:47:00 Test Item Value Reference Range Interpretation Comments MCV (test code = MCV) 82.1 81.0-99.0 N [facility] HospitalFipjashBSZSECCOIV9441-09-36 08:47:00 Test Item Value Reference Range Interpretation Comments Hct (test code = Hct) 25.9 36.0-48.0 L [facility] HospitalAqosnjlBNXDBFXMTJ9614-82-17 08:47:00 Test Item Value Reference Range Interpretation Comments Platelet (test code = Platelet) 233 133-450 N [facility] HospitalFrdhfguZODANAURKZ8786-33-82 08:47:00 Test Item Value Reference Range Interpretation Comments RDW (test code = RDW) 14.5 11.5-14.5 N [facility] HospitalCpbycwoBIWQAGRGCR3228-89-02 08:47:00 Test Item Value Reference Range Interpretation Comments MCHC (test code = MCHC) 35.2 32.0-36.0 N [facility] HospitalJxrcblnGBDQSDUZKP9235-86-04 08:47:00 Test Item Value Reference Range Interpretation Comments Hgb (test code = Hgb) 9.1 12.0-16.0 L [facility] HospitalOrnvuemFCGCLRJFUP9347-80-18 08:47:00 Test Item Value Reference Range Interpretation Comments RBC (test code = RBC) 3.15 4.20-5.40 L [facility] HospitalEmxanjrBYCYZKHHWN6476-13-13 08:47:00 Test Item Value Reference Range Interpretation Comments MPV (test code = MPV) 9.0 7.4-10.4 N [facility] HospitalTdeikzqNERIYQMXKQ7249-85-44 08:47:00 Test Item Value Reference Range Interpretation Comments WBC (test code = WBC) 6.3 3.7-10.4 N [facility] HospitalKkurmzaAUHNYADXOC7291-36-71 08:47:00 Test Item Value Reference Range Interpretation Comments Eosinophils # (test code 0.0 See_Comment N [A utomated message] The = Eosinophils #) system whic h generated this result tra nsmitted reference range : <=0.5. The reference r leo was not used to int erpret this result as normal/abnormal . [facility] HospitalPodawaePJUQUCVHAQ4557-34-04 08:47:00 Test Item Value Reference Range Interpretation Comments Basophils # (test code 0.0 See_Comment N [Aut omated message] The = Basophils #) system which generated this result tra nsmitted reference range : <=0.2. The reference r leo was not used to int erpret this result as normal/abnormal . [facility] HospitalZbuvogdZCQCXFRSJS0631-31-02 08:47:00 Test Item Value Reference Range Interpretation Comments Segs-Bands # (test code = Segs-Bands #) 3.8 1.5-8.1 N [facility] HospitalNzvgbplVTSHBKLWYE1437-45-80 08:47:00 Test Item Value Reference Range Interpretation Comments Lymphocytes # (test code = Lymphocytes 2.0 1.0-5.5 N #) [facility] HospitalDknffrrFJMPJRWBQJ9563-58-65 08:47:00 Test Item Value Reference Range Interpretation Comments Basophils (test code = 0.5 See_Comment N [Aut omated message] The Basophils) system which ge nerated this result tra nsmitted reference range : <=1.0. The reference r leo was not used to int erpret this result as normal/abnormal . [facility] HospitalHrqthmwKEQJNYWLOF8399-45-82 08:47:00 Test Item Value Reference Range Interpretation Comments Eosinophils (test code = 0.7 See_Comment N [A utomated message] The Eosinophils) system which ge nerated this result tra nsmitted reference range : <=4.0. The reference r leo was not used to int erpret this result as normal/abnormal . [facility] HospitalJvnhvvcIOVGBKGKCM9466-35-18 08:47:00 Test Item Value Reference Range Interpretation Comments Monocytes (test code = Monocytes) 6.2 2.0-12.0 N [facility] HospitalUfxsvoxUHFUBMMVCL8005-73-66 08:47:00 Test Item Value Reference Range Interpretation Comments Segs (test code = Segs) 61.1 45.0-75.0 N [facility] HospitalLgnjicuUUWPYKQQYL5203-76-56 08:47:00 Test Item Value Reference Range Interpretation Comments Lymphocytes (test code = Lymphocytes) 31.5 20.0-40.0 N [facility] HospitalNsyjvixTQHNMNRHNS5611-67-76 08:47:00 Test Item Value Reference Range Interpretation Comments Monocytes # (test code 0.4 See_Comment N [Aut omated message] The = Monocytes #) system which generated this result tra nsmitted reference range : <=0.8. The reference r leo was not used to int erpret this result as normal/abnormal . [facility] CenterCqaqtjcBEHYOCNXF9040-94-74 08:47:00 Test Item Value Reference Range Interpretation Comments Sodium Lvl (test code = Sodium Lvl) 143 135-145 N [facility] CenterVvedcasAQAGZLUIU8550-81-41 08:47:00 Test Item Value Reference Range Interpretation Comments Glucose Lvl (test code = Glucose Lvl) 105 [facility] CenterBdhbiqnFQJCLVMFN1936-56-76 08:47:00 Test Item Value Reference Range Interpretation Comments CO2 (test code = CO2) 29 24-32 N [facility] CenterNffybavYMSZFSPEO4683-09-24 08:47:00 Test Item Value Reference Range Interpretation Comments Chloride Lvl (test code = Chloride Lvl) 103 95-109 N [facility] CenterDgfbzvpXNEQXRYAC6788-39-08 08:47:00 Test Item Value Reference Range Interpretation Comments BUN (test code = BUN) 10 7-22 N [facility] CenterIubdtkdJJFOZKYOS5342-33-09 08:47:00 Test Item Value Reference Range Interpretation Comments Potassium Lvl (test code = Potassium 3.8 3.5-5.1 N Lvl) [facility] CenterLjnmrntKULUFTBXG3151-37-41 08:47:00 Test Item Value Reference Range Interpretation Comments Creatinine Lvl (test code = Creatinine 0.6 0.5-1.4 N Lvl) [facility] CenterKdeglknEUEBFBNNC3405-75-40 08:47:00 Test Item Value Reference Range Interpretation Comments Calcium Lvl (test code = Calcium Lvl) 8.5 8.5-10.5 N [facility] CenterJulgjgzJNVJTHWIA1033-79-04 08:47:00 Test Item Value Reference Range Interpretation Comments AGAP (test code = AGAP) 14.8 10.0-20.0 N [facility] HospitalYpmqebaSEOVPKQUPQ6202-92-25 08:47:00 Test Item Value Reference Range Interpretation Comments MCH (test code = MCH) 28.9 pg 27.0-31.0 N [facility] HospitalUpeitywOCMHENRNTF5265-93-18 08:47:00 Test Item Value Reference Range Interpretation Comments MCV (test code = MCV) 82.1 81.0-99.0 N [facility] HospitalYrhyzuzSNRIFSMXRJ4770-44-98 08:47:00 Test Item Value Reference Range Interpretation Comments Hct (test code = Hct) 25.9 36.0-48.0 L [facility] HospitalVwlkfrmLOBWRYHKOG8336-84-27 08:47:00 Test Item Value Reference Range Interpretation Comments Platelet (test code = Platelet) 233 133-450 N [facility] HospitalFnymdwbGYEAPRACHY9094-31-09 08:47:00 Test Item Value Reference Range Interpretation Comments RDW (test code = RDW) 14.5 11.5-14.5 N [facility] HospitalZhuzkfkFUAFWMLAGL1697-47-45 08:47:00 Test Item Value Reference Range Interpretation Comments MCHC (test code = MCHC) 35.2 32.0-36.0 N [facility] HospitalRakpjrgZLJJEMEUSU3918-03-29 08:47:00 Test Item Value Reference Range Interpretation Comments Hgb (test code = Hgb) 9.1 12.0-16.0 L [facility] HospitalWcdscgrUPHDIAMNFJ4499-00-53 08:47:00 Test Item Value Reference Range Interpretation Comments RBC (test code = RBC) 3.15 4.20-5.40 L [facility] HospitalLkxkbnlQCYBKDCYNJ3620-35-17 08:47:00 Test Item Value Reference Range Interpretation Comments MPV (test code = MPV) 9.0 7.4-10.4 N [facility] HospitalWpxvtkbBQXELHGPOA4743-90-60 08:47:00 Test Item Value Reference Range Interpretation Comments WBC (test code = WBC) 6.3 3.7-10.4 N [facility] HospitalRbuuubtHACWLBSVOG1586-49-01 08:47:00 Test Item Value Reference Range Interpretation Comments Eosinophils # (test code 0.0 See_Comment N [A utomated message] The = Eosinophils #) system whic h generated this result tra nsmitted reference range : <=0.5. The reference r leo was not used to int erpret this result as normal/abnormal . [facility] HospitalPlawsrcFOWNTYSRZA2932-30-61 08:47:00 Test Item Value Reference Range Interpretation Comments Basophils # (test code 0.0 See_Comment N [Aut omated message] The = Basophils #) system which generated this result tra nsmitted reference range : <=0.2. The reference r leo was not used to int erpret this result as normal/abnormal . [facility] HospitalOjbbojiLEEXHETWKT4985-06-62 08:47:00 Test Item Value Reference Range Interpretation Comments Segs-Bands # (test code = Segs-Bands #) 3.8 1.5-8.1 N [facility] HospitalGhwpjcgYQFYTVRLUH3004-19-87 08:47:00 Test Item Value Reference Range Interpretation Comments Lymphocytes # (test code = Lymphocytes 2.0 1.0-5.5 N #) [facility] HospitalKxcsgzpTMYMGCYPOU8785-57-58 08:47:00 Test Item Value Reference Range Interpretation Comments Basophils (test code = 0.5 See_Comment N [Aut omated message] The Basophils) system which ge nerated this result tra nsmitted reference range : <=1.0. The reference r leo was not used to int erpret this result as normal/abnormal . [facility] HospitalHzplwfyNBNHRFKBGT3943-03-31 08:47:00 Test Item Value Reference Range Interpretation Comments Eosinophils (test code = 0.7 See_Comment N [A utomated message] The Eosinophils) system which ge nerated this result tra nsmitted reference range : <=4.0. The reference r leo was not used to int erpret this result as normal/abnormal . [facility] HospitalYvbdwpnTCBEFLLCBF9615-50-21 08:47:00 Test Item Value Reference Range Interpretation Comments Monocytes (test code = Monocytes) 6.2 2.0-12.0 N [facility] HospitalVsyejidPRLWCSFRUS3362-20-90 08:47:00 Test Item Value Reference Range Interpretation Comments Segs (test code = Segs) 61.1 45.0-75.0 N [facility] HospitalWmxhtyhQKNJWIBKMM1660-09-16 08:47:00 Test Item Value Reference Range Interpretation Comments Lymphocytes (test code = Lymphocytes) 31.5 20.0-40.0 N [facility] HospitalEwhonzyXUKCABQZSK1640-16-98 08:47:00 Test Item Value Reference Range Interpretation Comments Monocytes # (test code 0.4 See_Comment N [Aut omated message] The = Monocytes #) system which generated this result tra nsmitted reference range : <=0.8. The reference r leo was not used to int erpret this result as normal/abnormal . [facility] CenterJzeiplfJBOXCWRYM7519-12-76 08:47:00 Test Item Value Reference Range Interpretation Comments Sodium Lvl (test code = Sodium Lvl) 143 135-145 N [facility] CenterRolnufrVPEBMMDMP1299-18-75 08:47:00 Test Item Value Reference Range Interpretation Comments Glucose Lvl (test code = Glucose Lvl) 105 [facility] CenterRqkrsqoTRCVEDJIA3177-59-04 08:47:00 Test Item Value Reference Range Interpretation Comments CO2 (test code = CO2) 29 24-32 N [facility] CenterNeatwiiVYNLBDTTG4191-87-29 08:47:00 Test Item Value Reference Range Interpretation Comments Chloride Lvl (test code = Chloride Lvl) 103 95-109 N [facility] CenterWhdxadnXTMYNPZYW9094-40-34 08:47:00 Test Item Value Reference Range Interpretation Comments BUN (test code = BUN) 10 7-22 N [facility] CenterIzpvmbhIEYZDMWMF4214-47-45 08:47:00 Test Item Value Reference Range Interpretation Comments Potassium Lvl (test code = Potassium 3.8 3.5-5.1 N Lvl) [facility] CenterBzcbmrjUQBBPAAGH1510-88-27 08:47:00 Test Item Value Reference Range Interpretation Comments Creatinine Lvl (test code = Creatinine 0.6 0.5-1.4 N Lvl) [facility] CenterXakalskSQXXWDZBR2511-30-50 08:47:00 Test Item Value Reference Range Interpretation Comments Calcium Lvl (test code = Calcium Lvl) 8.5 8.5-10.5 N [facility] CenterQyfsrmaYWKSXCXBX0952-98-08 08:47:00 Test Item Value Reference Range Interpretation Comments AGAP (test code = AGAP) 14.8 10.0-20.0 N [facility] HospitalZugfkgyFQHRSOBAZC6968-51-50 08:47:00 Test Item Value Reference Range Interpretation Comments MCH (test code = MCH) 28.9 pg 27.0-31.0 N [facility] HospitalNsoajjjRRHSIJFFDO2605-80-40 08:47:00 Test Item Value Reference Range Interpretation Comments MCV (test code = MCV) 82.1 81.0-99.0 N [facility] HospitalZwbmfwrZZCBGBEXXC6084-57-61 08:47:00 Test Item Value Reference Range Interpretation Comments Hct (test code = Hct) 25.9 36.0-48.0 L [facility] HospitalJdkkmnrAIFSGQUPHC0860-35-35 08:47:00 Test Item Value Reference Range Interpretation Comments Platelet (test code = Platelet) 233 133-450 N [facility] HospitalLcdeglgFOXESKFSYD2861-56-42 08:47:00 Test Item Value Reference Range Interpretation Comments RDW (test code = RDW) 14.5 11.5-14.5 N [facility] HospitalEzcmkxaLGZUHPCJRS8804-15-22 08:47:00 Test Item Value Reference Range Interpretation Comments MCHC (test code = MCHC) 35.2 32.0-36.0 N [facility] HospitalEyounvvDKYHWTNYFM5386-44-55 08:47:00 Test Item Value Reference Range Interpretation Comments Hgb (test code = Hgb) 9.1 12.0-16.0 L [facility] HospitalLxwoytsDSYPIXGEOO6312-27-51 08:47:00 Test Item Value Reference Range Interpretation Comments RBC (test code = RBC) 3.15 4.20-5.40 L [facility] HospitalLqcugrpLEWXMEAYFQ5847-14-86 08:47:00 Test Item Value Reference Range Interpretation Comments MPV (test code = MPV) 9.0 7.4-10.4 N [facility] HospitalRxppvkaNIOONBRUDT4871-76-39 08:47:00 Test Item Value Reference Range Interpretation Comments WBC (test code = WBC) 6.3 3.7-10.4 N [facility] HospitalVyqwuogVODFRWEZDS9188-07-26 08:47:00 Test Item Value Reference Range Interpretation Comments Eosinophils # (test code 0.0 See_Comment N [A utomated message] The = Eosinophils #) system whic h generated this result tra nsmitted reference range : <=0.5. The reference r leo was not used to int erpret this result as normal/abnormal . [facility] HospitalAjjpymiMWONEAQQJV4639-07-33 08:47:00 Test Item Value Reference Range Interpretation Comments Basophils # (test code 0.0 See_Comment N [Aut omated message] The = Basophils #) system which generated this result tra nsmitted reference range : <=0.2. The reference r leo was not used to int erpret this result as normal/abnormal . [facility] HospitalWefbvnyQFJEGFKEOH4872-79-30 08:47:00 Test Item Value Reference Range Interpretation Comments Segs-Bands # (test code = Segs-Bands #) 3.8 1.5-8.1 N [facility] HospitalSckkkgxSNDTUDHQVV5261-24-61 08:47:00 Test Item Value Reference Range Interpretation Comments Lymphocytes # (test code = Lymphocytes 2.0 1.0-5.5 N #) [facility] HospitalHsmadtzERWXQSTUQJ8778-01-07 08:47:00 Test Item Value Reference Range Interpretation Comments Basophils (test code = 0.5 See_Comment N [Aut omated message] The Basophils) system which ge nerated this result tra nsmitted reference range : <=1.0. The reference r leo was not used to int erpret this result as normal/abnormal . [facility] HospitalRfynlmrHJQMUMDLGS2601-49-63 08:47:00 Test Item Value Reference Range Interpretation Comments Eosinophils (test code = 0.7 See_Comment N [A utomated message] The Eosinophils) system which ge nerated this result tra nsmitted reference range : <=4.0. The reference r leo was not used to int erpret this result as normal/abnormal . [facility] HospitalHrfuxlmUEGZXKOEDK5447-81-28 08:47:00 Test Item Value Reference Range Interpretation Comments Monocytes (test code = Monocytes) 6.2 2.0-12.0 N [facility] HospitalFhnhjyxLRYZIJXIDE0087-27-74 08:47:00 Test Item Value Reference Range Interpretation Comments Segs (test code = Segs) 61.1 45.0-75.0 N [facility] HospitalDlnphmkRSFEIJRRUE6854-51-30 08:47:00 Test Item Value Reference Range Interpretation Comments Lymphocytes (test code = Lymphocytes) 31.5 20.0-40.0 N [facility] HospitalQorpymrLSQHHFUHQR1114-19-93 08:47:00 Test Item Value Reference Range Interpretation Comments Monocytes # (test code 0.4 See_Comment N [Aut omated message] The = Monocytes #) system which generated this result tra nsmitted reference range : <=0.8. The reference r leo was not used to int erpret this result as normal/abnormal . [facility] CenterBvydtllQVVLQCXZM9648-55-65 08:47:00 Test Item Value Reference Range Interpretation Comments Sodium Lvl (test code = Sodium Lvl) 143 135-145 N [facility] CenterActrzrkLMJSZLWWK3870-35-74 08:47:00 Test Item Value Reference Range Interpretation Comments Glucose Lvl (test code = Glucose Lvl) 105 [facility] CenterTmdbnxzWOYWUMCDE8547-68-78 08:47:00 Test Item Value Reference Range Interpretation Comments CO2 (test code = CO2) 29 24-32 N [facility] CenterHoagetfDMCTDXJVW2809-25-03 08:47:00 Test Item Value Reference Range Interpretation Comments Chloride Lvl (test code = Chloride Lvl) 103 95-109 N [facility] CenterXpmtldkAEKPJKNGR4854-22-02 08:47:00 Test Item Value Reference Range Interpretation Comments BUN (test code = BUN) 10 7-22 N [facility] CenterGctlmurHPGZHIUJT8526-68-91 08:47:00 Test Item Value Reference Range Interpretation Comments Potassium Lvl (test code = Potassium 3.8 3.5-5.1 N Lvl) [facility] CenterGlkuavyOUQOOXJOD5153-44-37 08:47:00 Test Item Value Reference Range Interpretation Comments Creatinine Lvl (test code = Creatinine 0.6 0.5-1.4 N Lvl) [facility] CenterMkhskypQYXUJOOVI1918-53-65 08:47:00 Test Item Value Reference Range Interpretation Comments Calcium Lvl (test code = Calcium Lvl) 8.5 8.5-10.5 N [facility] CenterSsrrkkmKBGINXOUD3391-36-07 08:47:00 Test Item Value Reference Range Interpretation Comments AGAP (test code = AGAP) 14.8 10.0-20.0 N [facility] HospitalYomhthoQKDXBIWFAU3837-70-80 08:47:00 Test Item Value Reference Range Interpretation Comments MCH (test code = MCH) 28.9 pg 27.0-31.0 N [facility] HospitalAlqukyrKUFBPEMBIZ2755-04-12 08:47:00 Test Item Value Reference Range Interpretation Comments MCV (test code = MCV) 82.1 81.0-99.0 N [facility] HospitalYnedzrlPUKJYQINWG3364-35-08 08:47:00 Test Item Value Reference Range Interpretation Comments Hct (test code = Hct) 25.9 36.0-48.0 L [facility] HospitalNntruzzEEGYAIHAEH3954-43-32 08:47:00 Test Item Value Reference Range Interpretation Comments Platelet (test code = Platelet) 233 133-450 N [facility] HospitalSvwdhowIPGRRSLGGV1301-05-21 08:47:00 Test Item Value Reference Range Interpretation Comments RDW (test code = RDW) 14.5 11.5-14.5 N [facility] HospitalJjanmsmCKEKLDFBYA5877-48-91 08:47:00 Test Item Value Reference Range Interpretation Comments MCHC (test code = MCHC) 35.2 32.0-36.0 N [facility] HospitalAiiczxdLMJXCKKZZG2972-81-47 08:47:00 Test Item Value Reference Range Interpretation Comments Hgb (test code = Hgb) 9.1 12.0-16.0 L [facility] HospitalSjaggutLRXSHDDVJO7087-26-74 08:47:00 Test Item Value Reference Range Interpretation Comments RBC (test code = RBC) 3.15 4.20-5.40 L [facility] HospitalHjxgpyvUISFGFKIVA1804-65-97 08:47:00 Test Item Value Reference Range Interpretation Comments MPV (test code = MPV) 9.0 7.4-10.4 N [facility] HospitalWiktfoiCMNQQBPGIO7601-89-20 08:47:00 Test Item Value Reference Range Interpretation Comments WBC (test code = WBC) 6.3 3.7-10.4 N [facility] HospitalTnaqfvrHPFTAYUOZQ9411-03-61 08:47:00 Test Item Value Reference Range Interpretation Comments Eosinophils # (test code 0.0 See_Comment N [A utomated message] The = Eosinophils #) system whic h generated this result tra nsmitted reference range : <=0.5. The reference r leo was not used to int erpret this result as normal/abnormal . [facility] HospitalPuskhfmEMCWOQMDHW3644-22-75 08:47:00 Test Item Value Reference Range Interpretation Comments Basophils # (test code 0.0 See_Comment N [Aut omated message] The = Basophils #) system which generated this result tra nsmitted reference range : <=0.2. The reference r loe was not used to int erpret this result as normal/abnormal . [facility] HospitalKzublawUQRAIPQSZS7158-13-18 08:47:00 Test Item Value Reference Range Interpretation Comments Segs-Bands # (test code = Segs-Bands #) 3.8 1.5-8.1 N [facility] HospitalTqpetynGEYJWLZFAA8662-61-95 08:47:00 Test Item Value Reference Range Interpretation Comments Lymphocytes # (test code = Lymphocytes 2.0 1.0-5.5 N #) [facility] HospitalKroqluoHWKNLCEHYW2914-54-28 08:47:00 Test Item Value Reference Range Interpretation Comments Basophils (test code = 0.5 See_Comment N [Aut omated message] The Basophils) system which ge nerated this result tra nsmitted reference range : <=1.0. The reference r leo was not used to int erpret this result as normal/abnormal . [facility] HospitalJhwftvvXRGXQEAMYX6244-61-63 08:47:00 Test Item Value Reference Range Interpretation Comments Eosinophils (test code = 0.7 See_Comment N [A utomated message] The Eosinophils) system which ge nerated this result tra nsmitted reference range : <=4.0. The reference r leo was not used to int erpret this result as normal/abnormal . [facility] HospitalJbinziwLHMPFSEDVZ5417-67-37 08:47:00 Test Item Value Reference Range Interpretation Comments Monocytes (test code = Monocytes) 6.2 2.0-12.0 N [facility] HospitalGpdiqamQJQXMUXXSZ9397-96-14 08:47:00 Test Item Value Reference Range Interpretation Comments Segs (test code = Segs) 61.1 45.0-75.0 N [facility] HospitalEuqyfudUHMIWGDNRG8732-05-60 08:47:00 Test Item Value Reference Range Interpretation Comments Lymphocytes (test code = Lymphocytes) 31.5 20.0-40.0 N [facility] HospitalEptdmzwMXRMDBWXXF2112-96-16 08:47:00 Test Item Value Reference Range Interpretation Comments Monocytes # (test code 0.4 See_Comment N [Aut omated message] The = Monocytes #) system which generated this result tra nsmitted reference range : <=0.8. The reference r leo was not used to int erpret this result as normal/abnormal . [facility] [facility]scbfwpAQGEUWMPB0753-33-07 10:54:00 Test Item Value Reference Range Interpretation Comments CO2 (test code = CO2) 27 24-32 N [facility] CenterCmgqcvdIIEWNVCSQ1171-66-24 10:54:00 Test Item Value Reference Range Interpretation Comments Chloride Lvl (test code = Chloride Lvl) 104 95-109 N [facility] CenterCakdegrRRVUJUDVA0860-61-07 10:54:00 Test Item Value Reference Range Interpretation Comments Creatinine Lvl (test code = Creatinine 0.5 0.5-1.4 N Lvl) [facility] CenterJsqrvruNZLZCSVVK4127-55-41 10:54:00 Test Item Value Reference Range Interpretation Comments BUN (test code = BUN) 10 7-22 N [facility] CenterHvfixhtZCIDZPGHI6435-26-44 10:54:00 Test Item Value Reference Range Interpretation Comments Potassium Lvl (test code = Potassium 4.1 3.5-5.1 N Lvl) [facility] CenterMtopmgiLOFPCZKUH8615-61-05 10:54:00 Test Item Value Reference Range Interpretation Comments Sodium Lvl (test code = Sodium Lvl) 141 135-145 N [facility] CenterAcyhtitOWPBBAJZD4429-52-02 10:54:00 Test Item Value Reference Range Interpretation Comments Glucose Lvl (test code = Glucose Lvl) 83 [facility] CenterEtjnmlfOCQSVHPHD9645-87-35 10:54:00 Test Item Value Reference Range Interpretation Comments Calcium Lvl (test code = Calcium Lvl) 8.4 8.5-10.5 L [facility] CenterOavxttkOQEMTRXPV1283-97-79 10:54:00 Test Item Value Reference Range Interpretation Comments AGAP (test code = AGAP) 14.1 10.0-20.0 N [facility] HospitalIyemcpaHOESNOYZCE5414-27-12 10:54:00 Test Item Value Reference Range Interpretation Comments Hct (test code = Hct) 35.5 36.0-48.0 L [facility] HospitalOypeobxYUORWXYIMA0224-13-68 10:54:00 Test Item Value Reference Range Interpretation Comments WBC (test code = WBC) 4.7 3.7-10.4 N [facility] HospitalRbgvzrjLAODXZRBNH3811-60-11 10:54:00 Test Item Value Reference Range Interpretation Comments MCV (test code = MCV) 92.6 81.0-99.0 N [facility] HospitalPxlvzxwTAWMRVAJNZ0975-29-57 10:54:00 Test Item Value Reference Range Interpretation Comments MCH (test code = MCH) 31.4 pg 27.0-31.0 H [facility] HospitalTphlxnbZINMSTDVPQ1852-58-76 10:54:00 Test Item Value Reference Range Interpretation Comments RBC (test code = RBC) 3.84 4.20-5.40 L [facility] HospitalEgsafpqOEBIOTFQHN3423-93-40 10:54:00 Test Item Value Reference Range Interpretation Comments Hgb (test code = Hgb) 12.1 12.0-16.0 N [facility] HospitalKptudfcUYMHIJBGMM5055-77-97 10:54:00 Test Item Value Reference Range Interpretation Comments Platelet (test code = Platelet) 287 133-450 N [facility] HospitalIfwehscWULVBBQBLY4025-77-77 10:54:00 Test Item Value Reference Range Interpretation Comments RDW (test code = RDW) 12.7 11.5-14.5 N [facility] HospitalTouausfQPWXNUWIEO4998-61-56 10:54:00 Test Item Value Reference Range Interpretation Comments MCHC (test code = MCHC) 33.9 32.0-36.0 N [facility] HospitalMhunrzwKOFZVCLRQE5439-88-52 10:54:00 Test Item Value Reference Range Interpretation Comments MPV (test code = MPV) 7.2 7.4-10.4 [facility]2012-03-19 10:54:00 Test Item Value Reference Range Interpretation Comments INR (test code = INR) 0.95 0.85-1.17 N [facility] HospitalTpeedrqEPUAFVXJKA2522-58-56 10:54:00 Test Item Value Reference Range Interpretation Comments PT (test code = PT) 12.7 s 12.0-14.7 N [facility] HospitalVyocwtaQARQSWSUBF9485-14-89 10:54:00 Test Item Value Reference Range Interpretation Comments PTT (test code = PTT) 28.5 s 22.9-35.8 N [facility] HospitalSqkfdbkCPCMRKIYQG5997-84-98 10:54:00 Test Item Value Reference Range Interpretation Comments Eosinophils # (test code 0.1 See_Comment N [A utomated message] The = Eosinophils #) system whic h generated this result tra nsmitted reference range : <=0.5. The reference r leo was not used to int erpret this result as normal/abnormal . [facility] HospitalBdsvnajCNBDHHFKIM0859-56-41 10:54:00 Test Item Value Reference Range Interpretation Comments Basophils # (test code 0.0 See_Comment N [Aut omated message] The = Basophils #) system which generated this result tra nsmitted reference range : <=0.2. The reference r leo was not used to int erpret this result as normal/abnormal . [facility] HospitalJfoejtrOMTTDHUCAH7957-50-54 10:54:00 Test Item Value Reference Range Interpretation Comments Basophils (test code = 0.4 See_Comment N [Aut omated message] The Basophils) system which ge nerated this result tra nsmitted reference range : <=1.0. The reference r leo was not used to int erpret this result as normal/abnormal . [facility] HospitalBsosbbbFGYMWJLMHR1500-62-37 10:54:00 Test Item Value Reference Range Interpretation Comments Segs-Bands # (test code = Segs-Bands #) 2.1 1.5-8.1 N [facility] HospitalOgyzngaVQCUUWZNSU4916-51-34 10:54:00 Test Item Value Reference Range Interpretation Comments Monocytes (test code = Monocytes) 9.0 2.0-12.0 N [facility] HospitalAqizuwrVGRBPYXZOL0060-60-38 10:54:00 Test Item Value Reference Range Interpretation Comments Eosinophils (test code = 2.4 See_Comment N [A utomated message] The Eosinophils) system which ge nerated this result tra nsmitted reference range : <=4.0. The reference r leo was not used to int erpret this result as normal/abnormal . [facility] HospitalMmcxtjcSMZHEHURZA8330-02-22 10:54:00 Test Item Value Reference Range Interpretation Comments Monocytes # (test code 0.4 See_Comment N [Aut omated message] The = Monocytes #) system which generated this result tra nsmitted reference range : <=0.8. The reference r leo was not used to int erpret this result as normal/abnormal . [facility] HospitalMgfmezcAWJQWRAGDY3172-78-11 10:54:00 Test Item Value Reference Range Interpretation Comments Lymphocytes # (test code = Lymphocytes 2.0 1.0-5.5 N #) [facility] HospitalFsfsaqsJTDYFJBLMG1700-10-37 10:54:00 Test Item Value Reference Range Interpretation Comments Lymphocytes (test code = Lymphocytes) 42.8 20.0-40.0 H [facility] HospitalQxroxfeASRPOXMBAE7297-74-24 10:54:00 Test Item Value Reference Range Interpretation Comments Segs (test code = Segs) 45.4 45.0-75.0 N [facility] CenterMzgigcgMJNKTTOHS2093-76-17 10:54:00 Test Item Value Reference Range Interpretation Comments CO2 (test code = CO2) 27 24-32 N [facility] CenterNumnyemOLRIKRFPV3636-81-63 10:54:00 Test Item Value Reference Range Interpretation Comments Chloride Lvl (test code = Chloride Lvl) 104 95-109 N [facility] CenterFnjiwkkPNDGMBDXY8795-00-58 10:54:00 Test Item Value Reference Range Interpretation Comments Creatinine Lvl (test code = Creatinine 0.5 0.5-1.4 N Lvl) [facility] CenterXsrfkyjPWSDGKILA0632-11-42 10:54:00 Test Item Value Reference Range Interpretation Comments BUN (test code = BUN) 10 7-22 N [facility] CenterIvsmkwoTOSLKKPUO1183-62-22 10:54:00 Test Item Value Reference Range Interpretation Comments Potassium Lvl (test code = Potassium 4.1 3.5-5.1 N Lvl) [facility] CenterKprwjimZFPXBDNLW8641-50-32 10:54:00 Test Item Value Reference Range Interpretation Comments Sodium Lvl (test code = Sodium Lvl) 141 135-145 N [facility] CenterBfdjgoyCBTTXTESL3493-71-52 10:54:00 Test Item Value Reference Range Interpretation Comments Glucose Lvl (test code = Glucose Lvl) 83 [facility] CenterEuyznrvTQGZWOIRO1814-15-95 10:54:00 Test Item Value Reference Range Interpretation Comments Calcium Lvl (test code = Calcium Lvl) 8.4 8.5-10.5 L [facility] CenterOundqtsGWHIREQOS5204-78-75 10:54:00 Test Item Value Reference Range Interpretation Comments AGAP (test code = AGAP) 14.1 10.0-20.0 N [facility] HospitalYeaxxzfZZJAFKNRYI6998-48-97 10:54:00 Test Item Value Reference Range Interpretation Comments Hct (test code = Hct) 35.5 36.0-48.0 L [facility] HospitalHoylborLQCHOZBFDF4856-52-58 10:54:00 Test Item Value Reference Range Interpretation Comments WBC (test code = WBC) 4.7 3.7-10.4 N [facility] HospitalArfeluwQJZUXHOETN8451-82-10 10:54:00 Test Item Value Reference Range Interpretation Comments MCV (test code = MCV) 92.6 81.0-99.0 N [facility] HospitalKtnhmvaVEVCWIKRRO1969-92-69 10:54:00 Test Item Value Reference Range Interpretation Comments MCH (test code = MCH) 31.4 pg 27.0-31.0 H [facility] HospitalJeyebfeJBILNBXWYO5115-60-24 10:54:00 Test Item Value Reference Range Interpretation Comments RBC (test code = RBC) 3.84 4.20-5.40 L [facility] HospitalIzgpkzwQSENCJQOLO8476-38-31 10:54:00 Test Item Value Reference Range Interpretation Comments Hgb (test code = Hgb) 12.1 12.0-16.0 N [facility] HospitalZclbcetQNAYKTIXEI3266-42-26 10:54:00 Test Item Value Reference Range Interpretation Comments Platelet (test code = Platelet) 287 133-450 N [facility] HospitalOufwdzlMPCDVALPFO4666-16-58 10:54:00 Test Item Value Reference Range Interpretation Comments RDW (test code = RDW) 12.7 11.5-14.5 N [facility] HospitalLzljoxgTEHTGYEKKR2488-65-78 10:54:00 Test Item Value Reference Range Interpretation Comments MCHC (test code = MCHC) 33.9 32.0-36.0 N [facility] HospitalTbwowhwGOJUYMJMHF1665-02-72 10:54:00 Test Item Value Reference Range Interpretation Comments MPV (test code = MPV) 7.2 7.4-10.4 L [facility] HospitalQmvpjqjXWPLRBSSQA6204-45-76 10:54:00 Test Item Value Reference Range Interpretation Comments INR (test code = INR) 0.95 0.85-1.17 N [facility] HospitalYigtgnsSZIJMIGNLQ2592-14-87 10:54:00 Test Item Value Reference Range Interpretation Comments PT (test code = PT) 12.7 s 12.0-14.7 N [facility] HospitalPhbwdloJKHYGTAMUB7758-51-40 10:54:00 Test Item Value Reference Range Interpretation Comments PTT (test code = PTT) 28.5 s 22.9-35.8 N [facility] HospitalBuazcboNDWEOYXHYF5505-41-41 10:54:00 Test Item Value Reference Range Interpretation Comments Eosinophils # (test code 0.1 See_Comment N [A utomated message] The = Eosinophils #) system whic h generated this result tra nsmitted reference range : <=0.5. The reference r leo was not used to int erpret this result as normal/abnormal . [facility] HospitalEeulrzkCIUZPSUXEM1854-38-48 10:54:00 Test Item Value Reference Range Interpretation Comments Basophils # (test code 0.0 See_Comment N [Aut omated message] The = Basophils #) system which generated this result tra nsmitted reference range : <=0.2. The reference r leo was not used to int erpret this result as normal/abnormal . [facility] HospitalUnyovnwRHHPKIPCCL6911-54-97 10:54:00 Test Item Value Reference Range Interpretation Comments Basophils (test code = 0.4 See_Comment N [Aut omated message] The Basophils) system which ge nerated this result tra nsmitted reference range : <=1.0. The reference r leo was not used to int erpret this result as normal/abnormal . [facility] HospitalYmzlatxEMEINMFMPN7380-47-78 10:54:00 Test Item Value Reference Range Interpretation Comments Segs-Bands # (test code = Segs-Bands #) 2.1 1.5-8.1 N [facility] HospitalEbltxxyDPFVKGYXVO8698-16-45 10:54:00 Test Item Value Reference Range Interpretation Comments Monocytes (test code = Monocytes) 9.0 2.0-12.0 N [facility] HospitalRuoigleRAQOEJAHDP9610-67-21 10:54:00 Test Item Value Reference Range Interpretation Comments Eosinophils (test code = 2.4 See_Comment N [A utomated message] The Eosinophils) system which ge nerated this result tra nsmitted reference range : <=4.0. The reference r leo was not used to int erpret this result as normal/abnormal . [facility] HospitalCszlajgILFMJYZYZV8419-90-74 10:54:00 Test Item Value Reference Range Interpretation Comments Monocytes # (test code 0.4 See_Comment N [Aut omated message] The = Monocytes #) system which generated this result tra nsmitted reference range : <=0.8. The reference r leo was not used to int erpret this result as normal/abnormal . [facility] HospitalPqtulsnNOVEDEMDNI4965-30-27 10:54:00 Test Item Value Reference Range Interpretation Comments Lymphocytes # (test code = Lymphocytes 2.0 1.0-5.5 N #) [facility] HospitalYxblidgAMUMGYAFNQ2145-92-13 10:54:00 Test Item Value Reference Range Interpretation Comments Lymphocytes (test code = Lymphocytes) 42.8 20.0-40.0 H [facility] HospitalDebrmlpQYJRTFOXRA5024-90-52 10:54:00 Test Item Value Reference Range Interpretation Comments Segs (test code = Segs) 45.4 45.0-75.0 N [facility] CenterBndgagbECVNWPAPZ2765-54-11 10:54:00 Test Item Value Reference Range Interpretation Comments CO2 (test code = CO2) 27 24-32 N [facility] CenterQoucjrdZKFTINXFV2252-94-79 10:54:00 Test Item Value Reference Range Interpretation Comments Chloride Lvl (test code = Chloride Lvl) 104 95-109 N [facility] CenterGflxnohNFBGCJLWV3480-12-97 10:54:00 Test Item Value Reference Range Interpretation Comments Creatinine Lvl (test code = Creatinine 0.5 0.5-1.4 N Lvl) [facility] CenterBgxbronEFOSPDZNU1300-94-96 10:54:00 Test Item Value Reference Range Interpretation Comments BUN (test code = BUN) 10 7-22 N [facility] CenterPpkvycwJUIUNLAYP0148-73-26 10:54:00 Test Item Value Reference Range Interpretation Comments Potassium Lvl (test code = Potassium 4.1 3.5-5.1 N Lvl) [facility] CenterCsstkemASSCHJSHK6450-70-55 10:54:00 Test Item Value Reference Range Interpretation Comments Sodium Lvl (test code = Sodium Lvl) 141 135-145 N [facility] CenterPbecrqtCLHSTQTZX8319-19-28 10:54:00 Test Item Value Reference Range Interpretation Comments Glucose Lvl (test code = Glucose Lvl) 83 [facility] CenterSzatxvgFDZJTRBSB9680-51-91 10:54:00 Test Item Value Reference Range Interpretation Comments Calcium Lvl (test code = Calcium Lvl) 8.4 8.5-10.5 L [facility] CenterEqegaujEPUUTYDGO3435-01-07 10:54:00 Test Item Value Reference Range Interpretation Comments AGAP (test code = AGAP) 14.1 10.0-20.0 N [facility] HospitalCvckeeoMPLMLSOUCH7256-43-97 10:54:00 Test Item Value Reference Range Interpretation Comments Hct (test code = Hct) 35.5 36.0-48.0 L [facility] HospitalRazynjqOQPKCQRSLL1181-04-93 10:54:00 Test Item Value Reference Range Interpretation Comments WBC (test code = WBC) 4.7 3.7-10.4 N [facility] HospitalOyuprjoUHCZLIRJPH8893-40-56 10:54:00 Test Item Value Reference Range Interpretation Comments MCV (test code = MCV) 92.6 81.0-99.0 N [facility] HospitalUkdoyzfRDFYQFUNFP0920-18-50 10:54:00 Test Item Value Reference Range Interpretation Comments MCH (test code = MCH) 31.4 pg 27.0-31.0 H [facility] HospitalAqorbvmMHBGQOVETM1317-58-72 10:54:00 Test Item Value Reference Range Interpretation Comments RBC (test code = RBC) 3.84 4.20-5.40 L [facility] HospitalPhuhbpeNJFRLXMECB7361-77-44 10:54:00 Test Item Value Reference Range Interpretation Comments Hgb (test code = Hgb) 12.1 12.0-16.0 N [facility] HospitalZztdpkrHEELNQFIMB2275-76-13 10:54:00 Test Item Value Reference Range Interpretation Comments Platelet (test code = Platelet) 287 133-450 N [facility] HospitalZlmjqxkVMMBCJHOKV7704-51-89 10:54:00 Test Item Value Reference Range Interpretation Comments RDW (test code = RDW) 12.7 11.5-14.5 N [facility] HospitalKemrexnHOWLMRJKTB7923-46-06 10:54:00 Test Item Value Reference Range Interpretation Comments MCHC (test code = MCHC) 33.9 32.0-36.0 N [facility] HospitalFyxnjlaCWGIBFSGAZ9949-96-80 10:54:00 Test Item Value Reference Range Interpretation Comments MPV (test code = MPV) 7.2 7.4-10.4 L [facility] HospitalKufwhnvOLCJCTKGEZ0134-45-32 10:54:00 Test Item Value Reference Range Interpretation Comments INR (test code = INR) 0.95 0.85-1.17 N [facility] HospitalFbukciiWWIQQGKWXO0111-52-34 10:54:00 Test Item Value Reference Range Interpretation Comments PT (test code = PT) 12.7 s 12.0-14.7 N [facility] HospitalCwotijjJEGLNDPOYF0734-85-99 10:54:00 Test Item Value Reference Range Interpretation Comments PTT (test code = PTT) 28.5 s 22.9-35.8 N [facility] HospitalSbzgyrxORRGQSGMYU6836-16-06 10:54:00 Test Item Value Reference Range Interpretation Comments Eosinophils # (test code 0.1 See_Comment N [A utomated message] The = Eosinophils #) system whic h generated this result tra nsmitted reference range : <=0.5. The reference r leo was not used to int erpret this result as normal/abnormal . [facility] HospitalRvxbqcyEBQVOPGIHX7375-14-33 10:54:00 Test Item Value Reference Range Interpretation Comments Basophils # (test code 0.0 See_Comment N [Aut omated message] The = Basophils #) system which generated this result tra nsmitted reference range : <=0.2. The reference r leo was not used to int erpret this result as normal/abnormal . [facility] HospitalUlozqzyIXFLAGOTGA5934-46-43 10:54:00 Test Item Value Reference Range Interpretation Comments Basophils (test code = 0.4 See_Comment N [Aut omated message] The Basophils) system which ge nerated this result tra nsmitted reference range : <=1.0. The reference r leo was not used to int erpret this result as normal/abnormal . [facility] HospitalAgcpupqUULTNDAZQY2654-64-83 10:54:00 Test Item Value Reference Range Interpretation Comments Segs-Bands # (test code = Segs-Bands #) 2.1 1.5-8.1 N [facility] HospitalCmqkytiRLYXQUIMYD2158-79-32 10:54:00 Test Item Value Reference Range Interpretation Comments Monocytes (test code = Monocytes) 9.0 2.0-12.0 N [facility] HospitalZfojnlzAYEPWSCMTP8575-42-01 10:54:00 Test Item Value Reference Range Interpretation Comments Eosinophils (test code = 2.4 See_Comment N [A utomated message] The Eosinophils) system which ge nerated this result tra nsmitted reference range : <=4.0. The reference r leo was not used to int erpret this result as normal/abnormal . [facility] HospitalNsmeipsLKITRSYHTX5754-14-11 10:54:00 Test Item Value Reference Range Interpretation Comments Monocytes # (test code 0.4 See_Comment N [Aut omated message] The = Monocytes #) system which generated this result tra nsmitted reference range : <=0.8. The reference r leo was not used to int erpret this result as normal/abnormal . [facility] HospitalGyffivkLLOVQAKDLQ4293-44-45 10:54:00 Test Item Value Reference Range Interpretation Comments Lymphocytes # (test code = Lymphocytes 2.0 1.0-5.5 N #) [facility] HospitalDxlzjkjCEXUSJIPFR3826-78-56 10:54:00 Test Item Value Reference Range Interpretation Comments Lymphocytes (test code = Lymphocytes) 42.8 20.0-40.0 H [facility] HospitalTyswoiyVMTBHQTMKH7896-86-73 10:54:00 Test Item Value Reference Range Interpretation Comments Segs (test code = Segs) 45.4 45.0-75.0 N [facility] CenterPeskvziVMWCQITZU5634-52-80 10:54:00 Test Item Value Reference Range Interpretation Comments CO2 (test code = CO2) 27 24-32 N [facility] CenterHmfbbyfYPQNKFZSN1915-78-47 10:54:00 Test Item Value Reference Range Interpretation Comments Chloride Lvl (test code = Chloride Lvl) 104 95-109 N [facility] CenterAyvjallGWAPIQERJ9909-05-44 10:54:00 Test Item Value Reference Range Interpretation Comments Creatinine Lvl (test code = Creatinine 0.5 0.5-1.4 N Lvl) [facility] CenterBsoklczCNUNHCDBD5324-15-14 10:54:00 Test Item Value Reference Range Interpretation Comments BUN (test code = BUN) 10 7-22 N [facility] CenterDdyeurjFNELKCRAU4754-11-41 10:54:00 Test Item Value Reference Range Interpretation Comments Potassium Lvl (test code = Potassium 4.1 3.5-5.1 N Lvl) [facility] CenterGfdbupwIEXJUNTRS7814-49-78 10:54:00 Test Item Value Reference Range Interpretation Comments Sodium Lvl (test code = Sodium Lvl) 141 135-145 N [facility] CenterVospseoRDTUGCTQN3835-17-26 10:54:00 Test Item Value Reference Range Interpretation Comments Glucose Lvl (test code = Glucose Lvl) 83 [facility] CenterQnzlezsOOYNDKHQZ3795-02-87 10:54:00 Test Item Value Reference Range Interpretation Comments Calcium Lvl (test code = Calcium Lvl) 8.4 8.5-10.5 L [facility] CenterLtwgkaxWUUAHNABH4662-95-43 10:54:00 Test Item Value Reference Range Interpretation Comments AGAP (test code = AGAP) 14.1 10.0-20.0 N [facility] HospitalCdjrxhdFPIVERMBZZ3098-69-56 10:54:00 Test Item Value Reference Range Interpretation Comments Hct (test code = Hct) 35.5 36.0-48.0 L [facility] HospitalCwiojveDHTJECSNBA4644-65-51 10:54:00 Test Item Value Reference Range Interpretation Comments WBC (test code = WBC) 4.7 3.7-10.4 N [facility] HospitalRksfrhpHUUREMWRQN3145-54-04 10:54:00 Test Item Value Reference Range Interpretation Comments MCV (test code = MCV) 92.6 81.0-99.0 N [facility] HospitalRyrqutkZIZZUHYNSJ0453-24-26 10:54:00 Test Item Value Reference Range Interpretation Comments MCH (test code = MCH) 31.4 pg 27.0-31.0 H [facility] HospitalZnwiucyAGVMNRQXJE0492-69-44 10:54:00 Test Item Value Reference Range Interpretation Comments RBC (test code = RBC) 3.84 4.20-5.40 L [facility] HospitalMrrgehvOOPFUHGJCM3754-57-95 10:54:00 Test Item Value Reference Range Interpretation Comments Hgb (test code = Hgb) 12.1 12.0-16.0 N [facility] HospitalWpxrfxoQJELHPHTLN7940-01-71 10:54:00 Test Item Value Reference Range Interpretation Comments Platelet (test code = Platelet) 287 133-450 N [facility] HospitalKuhdsymYFURLNRDBZ3874-55-87 10:54:00 Test Item Value Reference Range Interpretation Comments RDW (test code = RDW) 12.7 11.5-14.5 N [facility] HospitalNblnvnnFQJPMVABYI0721-57-72 10:54:00 Test Item Value Reference Range Interpretation Comments MCHC (test code = MCHC) 33.9 32.0-36.0 N [facility] HospitalUbphdqiQDYTKKCZLE7747-01-59 10:54:00 Test Item Value Reference Range Interpretation Comments MPV (test code = MPV) 7.2 7.4-10.4 L [facility] HospitalJlnjsgmMEQQVISKDD4010-81-54 10:54:00 Test Item Value Reference Range Interpretation Comments INR (test code = INR) 0.95 0.85-1.17 N [facility] HospitalBjsahhlSVETMCXWCX5593-48-19 10:54:00 Test Item Value Reference Range Interpretation Comments PT (test code = PT) 12.7 s 12.0-14.7 N [facility] HospitalYtegabvBJWPWXTPOP8136-49-99 10:54:00 Test Item Value Reference Range Interpretation Comments PTT (test code = PTT) 28.5 s 22.9-35.8 N [facility] HospitalYqofvfwXMMKYLLEMX2912-10-99 10:54:00 Test Item Value Reference Range Interpretation Comments Eosinophils # (test code 0.1 See_Comment N [A utomated message] The = Eosinophils #) system ic h generated this result tra nsmitted reference range : <=0.5. The reference r leo was not used to int erpret this result as normal/abnormal . [facility] HospitalZuqwjowFYUQWGAAYH5391-71-82 10:54:00 Test Item Value Reference Range Interpretation Comments Basophils # (test code 0.0 See_Comment N [Aut omated message] The = Basophils #) system which generated this result tra nsmitted reference range : <=0.2. The reference r leo was not used to int erpret this result as normal/abnormal . [facility] HospitalWnllufuFUCEIGIWGH1633-39-44 10:54:00 Test Item Value Reference Range Interpretation Comments Basophils (test code = 0.4 See_Comment N [Aut omated message] The Basophils) system which ge nerated this result tra nsmitted reference range : <=1.0. The reference r leo was not used to int erpret this result as normal/abnormal . [facility] HospitalRivnaqpYYCBZYULDA3138-92-19 10:54:00 Test Item Value Reference Range Interpretation Comments Segs-Bands # (test code = Segs-Bands #) 2.1 1.5-8.1 N [facility] HospitalZbqavlzFYDBMZRZNF2454-19-17 10:54:00 Test Item Value Reference Range Interpretation Comments Monocytes (test code = Monocytes) 9.0 2.0-12.0 N [facility] HospitalAglkrcpVWGOMLDFLI2853-63-96 10:54:00 Test Item Value Reference Range Interpretation Comments Eosinophils (test code = 2.4 See_Comment N [A utomated message] The Eosinophils) system which ge nerated this result tra nsmitted reference range : <=4.0. The reference r leo was not used to int erpret this result as normal/abnormal . [facility] HospitalQqvowmoULLPLOXMMU1848-10-63 10:54:00 Test Item Value Reference Range Interpretation Comments Monocytes # (test code 0.4 See_Comment N [Aut omated message] The = Monocytes #) system which generated this result tra nsmitted reference range : <=0.8. The reference r leo was not used to int erpret this result as normal/abnormal . [facility] HospitalYazejphQENLCACVFH2440-69-52 10:54:00 Test Item Value Reference Range Interpretation Comments Lymphocytes # (test code = Lymphocytes 2.0 1.0-5.5 N #) [facility] HospitalQwslpkeFTPIIWXRSX3016-57-58 10:54:00 Test Item Value Reference Range Interpretation Comments Lymphocytes (test code = Lymphocytes) 42.8 20.0-40.0 H [facility] HospitalNepfophPKKPHMJICI9364-35-99 10:54:00 Test Item Value Reference Range Interpretation Comments Segs (test code = Segs) 45.4 45.0-75.0 N [facility] CenterGrdjcjnNVRRFZULP6464-51-20 10:02:00 Test Item Value Reference Range Interpretation Comments Chloride Lvl (test code = Chloride Lvl) 105 95-109 N [facility] CenterEvunygbIHVNLZVGT1132-18-05 10:02:00 Test Item Value Reference Range Interpretation Comments Potassium Lvl (test code = Potassium 4.1 3.5-5.1 N Lvl) [facility] CenterImypesjPFNJDQAAO9428-01-59 10:02:00 Test Item Value Reference Range Interpretation Comments Sodium Lvl (test code = Sodium Lvl) 143 135-145 N [facility] CenterQzyvcatJMRVVOVQO1450-85-63 10:02:00 Test Item Value Reference Range Interpretation Comments CO2 (test code = CO2) 29 24-32 N [facility] CenterVkgxxpeEQAOFZSUG0394-18-12 10:02:00 Test Item Value Reference Range Interpretation Comments Calcium Lvl (test code = Calcium Lvl) 8.7 8.5-10.5 N [facility] CenterSrcxfdjTSTFOUXFF1866-94-30 10:02:00 Test Item Value Reference Range Interpretation Comments BUN (test code = BUN) 6 7-22 L [facility] CenterMzicxmgBUCAKLSJA3082-80-56 10:02:00 Test Item Value Reference Range Interpretation Comments Creatinine Lvl (test code = Creatinine 0.6 0.5-1.4 N Lvl) [facility] CenterRxgoolqMDFGSCGAB2987-75-20 10:02:00 Test Item Value Reference Range Interpretation Comments Glucose Lvl (test code = Glucose Lvl) 118 [facility] CenterVrbxdivUZGZSZRXK3721-63-97 10:02:00 Test Item Value Reference Range Interpretation Comments AGAP (test code = AGAP) 13.1 10.0-20.0 N [facility] HospitalWiwtyvrXEPHUHCQXO7533-15-99 10:02:00 Test Item Value Reference Range Interpretation Comments Basophils # (test code 0.0 See_Comment N [Aut omated message] The = Basophils #) system which generated this result tra nsmitted reference range : <=0.2. The reference r leo was not used to int erpret this result as normal/abnormal . [facility] HospitalTinwanwPOKTXBIYKI4940-37-03 10:02:00 Test Item Value Reference Range Interpretation Comments Monocytes # (test code 0.3 See_Comment N [Aut omated message] The = Monocytes #) system which generated this result tra nsmitted reference range : <=0.8. The reference r leo was not used to int erpret this result as normal/abnormal . [facility] HospitalQfdviqcBGBUISUTDC0568-78-04 10:02:00 Test Item Value Reference Range Interpretation Comments Eosinophils # (test code 0.1 See_Comment N [A utomated message] The = Eosinophils #) system whic h generated this result tra nsmitted reference range : <=0.5. The reference r leo was not used to int erpret this result as normal/abnormal . [facility] HospitalQffwygfRXLFSXYCLV4640-24-10 10:02:00 Test Item Value Reference Range Interpretation Comments Segs-Bands # (test code = Segs-Bands #) 2.8 1.5-8.1 N [facility] HospitalUzqlosqDUHKUDNCBD2839-42-46 10:02:00 Test Item Value Reference Range Interpretation Comments Lymphocytes # (test code = Lymphocytes 1.7 1.0-5.5 N #) [facility] HospitalAnxkwjyHKWAWWERCR2487-90-99 10:02:00 Test Item Value Reference Range Interpretation Comments Basophils (test code = 0.6 See_Comment N [Aut omated message] The Basophils) system which ge nerated this result tra nsmitted reference range : <=1.0. The reference r leo was not used to int erpret this result as normal/abnormal . [facility] HospitalMwngjiaKPULTAZFAD9635-16-50 10:02:00 Test Item Value Reference Range Interpretation Comments Monocytes (test code = Monocytes) 6.9 2.0-12.0 N [facility] HospitalZmkhpzlZKNBQSMMBN0188-06-86 10:02:00 Test Item Value Reference Range Interpretation Comments Eosinophils (test code = 2.0 See_Comment N [A utomated message] The Eosinophils) system which ge nerated this result tra nsmitted reference range : <=4.0. The reference r leo was not used to int erpret this result as normal/abnormal . [facility] HospitalGxlnnedVNXSDXIORS4554-56-50 10:02:00 Test Item Value Reference Range Interpretation Comments Segs (test code = Segs) 55.8 45.0-75.0 N [facility] HospitalHpwqpcwRNBNJIZMKQ0822-13-56 10:02:00 Test Item Value Reference Range Interpretation Comments Lymphocytes (test code = Lymphocytes) 34.7 20.0-40.0 N [facility] HospitalQytjeqcJQGTPWFANU4413-09-41 10:02:00 Test Item Value Reference Range Interpretation Comments PTT (test code = PTT) 32.2 s 22.9-35.8 N [facility] HospitalOyviojuJBMRVFZODQ9407-24-58 10:02:00 Test Item Value Reference Range Interpretation Comments PT (test code = PT) 13.3 s 12.0-14.7 N [facility] HospitalRybgkqmXUDIXABJDV0389-65-58 10:02:00 Test Item Value Reference Range Interpretation Comments INR (test code = INR) 1.01 0.85-1.17 N [facility] HospitalZzmvjkvDOHJCJFDGO3792-15-46 10:02:00 Test Item Value Reference Range Interpretation Comments Hct (test code = Hct) 27.5 36.0-48.0 L [facility] HospitalCwbndyrMOTEULKTKE9274-22-70 10:02:00 Test Item Value Reference Range Interpretation Comments RBC (test code = RBC) 3.34 4.20-5.40 L [facility] HospitalTwigbvhMNNSOCHNHJ5771-69-90 10:02:00 Test Item Value Reference Range Interpretation Comments Hgb (test code = Hgb) 9.7 12.0-16.0 L [facility] HospitalOrupttyPGQQYMFKNQ3488-36-26 10:02:00 Test Item Value Reference Range Interpretation Comments WBC (test code = WBC) 5.0 3.7-10.4 N [facility] HospitalEzyngztPTZPMCWGQJ9066-93-95 10:02:00 Test Item Value Reference Range Interpretation Comments MPV (test code = MPV) 9.2 7.4-10.4 N [facility] HospitalPdqetkvOQCKBVRTFA6806-92-30 10:02:00 Test Item Value Reference Range Interpretation Comments Platelet (test code = Platelet) 240 133-450 N [facility] HospitalIeuggrmKKOBTGOGFY2657-35-95 10:02:00 Test Item Value Reference Range Interpretation Comments RDW (test code = RDW) 14.3 11.5-14.5 N [facility] HospitalKfjwgwqIUWVBXWPNZ9043-76-97 10:02:00 Test Item Value Reference Range Interpretation Comments MCHC (test code = MCHC) 35.2 32.0-36.0 N [facility] HospitalUkstlcyXJJXFNDUMB3611-00-23 10:02:00 Test Item Value Reference Range Interpretation Comments MCH (test code = MCH) 28.9 pg 27.0-31.0 N [facility] HospitalXsessjbVMULFYYHXD5942-76-71 10:02:00 Test Item Value Reference Range Interpretation Comments MCV (test code = MCV) 82.1 81.0-99.0 N [facility] CenterVnluqpxEBNQMBOHI2353-29-99 10:02:00 Test Item Value Reference Range Interpretation Comments Chloride Lvl (test code = Chloride Lvl) 105 95-109 N [facility] CenterWwuyfeqFMZAAXPRT2651-94-37 10:02:00 Test Item Value Reference Range Interpretation Comments Potassium Lvl (test code = Potassium 4.1 3.5-5.1 N Lvl) [facility] CenterQxbbddoGHYYLMOVB6267-62-15 10:02:00 Test Item Value Reference Range Interpretation Comments Sodium Lvl (test code = Sodium Lvl) 143 135-145 N [facility] CenterOyoxmdiRHSNQUVAA3376-35-15 10:02:00 Test Item Value Reference Range Interpretation Comments CO2 (test code = CO2) 29 24-32 N [facility] CenterLybvmykPJJUPFZGW3944-92-21 10:02:00 Test Item Value Reference Range Interpretation Comments Calcium Lvl (test code = Calcium Lvl) 8.7 8.5-10.5 N [facility] CenterDipkvebPVAQCKOOI5720-91-68 10:02:00 Test Item Value Reference Range Interpretation Comments BUN (test code = BUN) 6 7-22 L [facility] CenterViqdpxhDGTZOOEXI6015-00-59 10:02:00 Test Item Value Reference Range Interpretation Comments Creatinine Lvl (test code = Creatinine 0.6 0.5-1.4 N Lvl) [facility] CenterNrsjqfyCBLVIVJZP6713-74-85 10:02:00 Test Item Value Reference Range Interpretation Comments Glucose Lvl (test code = Glucose Lvl) 118 [facility] CenterCbllsecFEZOCAWXC0240-92-59 10:02:00 Test Item Value Reference Range Interpretation Comments AGAP (test code = AGAP) 13.1 10.0-20.0 N [facility] HospitalKcrtuxfQGXQZRRNUI2027-94-64 10:02:00 Test Item Value Reference Range Interpretation Comments Basophils # (test code 0.0 See_Comment N [Aut omated message] The = Basophils #) system which generated this result tra nsmitted reference range : <=0.2. The reference r leo was not used to int erpret this result as normal/abnormal . [facility] HospitalSarolvwROBOSLVABV9380-17-34 10:02:00 Test Item Value Reference Range Interpretation Comments Monocytes # (test code 0.3 See_Comment N [Aut omated message] The = Monocytes #) system which generated this result tra nsmitted reference range : <=0.8. The reference r leo was not used to int erpret this result as normal/abnormal . [facility] HospitalOspxgfaGADOSBOYOI4504-33-99 10:02:00 Test Item Value Reference Range Interpretation Comments Eosinophils # (test code 0.1 See_Comment N [A utomated message] The = Eosinophils #) system wh h generated this result tra nsmitted reference range : <=0.5. The reference r leo was not used to int erpret this result as normal/abnormal . [facility] HospitalBchcdffQLBANVACRW9401-59-68 10:02:00 Test Item Value Reference Range Interpretation Comments Segs-Bands # (test code = Segs-Bands #) 2.8 1.5-8.1 N [facility] HospitalErytgnlINJJFRGHQQ4948-73-85 10:02:00 Test Item Value Reference Range Interpretation Comments Lymphocytes # (test code = Lymphocytes 1.7 1.0-5.5 N #) [facility] HospitalSpgqvtcGSIGZMUMAV6007-90-12 10:02:00 Test Item Value Reference Range Interpretation Comments Basophils (test code = 0.6 See_Comment N [Aut omated message] The Basophils) system which ge nerated this result tra nsmitted reference range : <=1.0. The reference r leo was not used to int erpret this result as normal/abnormal . [facility] HospitalUvbidrhFKUYZOKHPX7006-03-21 10:02:00 Test Item Value Reference Range Interpretation Comments Monocytes (test code = Monocytes) 6.9 2.0-12.0 N [facility] HospitalKfvifisAJOJYQDRMP4119-55-19 10:02:00 Test Item Value Reference Range Interpretation Comments Eosinophils (test code = 2.0 See_Comment N [A utomated message] The Eosinophils) system which ge nerated this result tra nsmitted reference range : <=4.0. The reference r leo was not used to int erpret this result as normal/abnormal . [facility] HospitalXvbsfifVECHRMXUBR5145-07-51 10:02:00 Test Item Value Reference Range Interpretation Comments Segs (test code = Segs) 55.8 45.0-75.0 N [facility] HospitalLoznphuSSJWXFPLXA7504-81-89 10:02:00 Test Item Value Reference Range Interpretation Comments Lymphocytes (test code = Lymphocytes) 34.7 20.0-40.0 N [facility] HospitalAmcrlsnWQWVAWLGQJ8709-03-62 10:02:00 Test Item Value Reference Range Interpretation Comments PTT (test code = PTT) 32.2 s 22.9-35.8 N [facility] HospitalLaawhmeTEQRCLEXFI1973-13-95 10:02:00 Test Item Value Reference Range Interpretation Comments PT (test code = PT) 13.3 s 12.0-14.7 N [facility] HospitalOjfuoufJCIBFNGMXC2156-89-68 10:02:00 Test Item Value Reference Range Interpretation Comments INR (test code = INR) 1.01 0.85-1.17 N [facility] HospitalUkyqbbmOHJNMPYAQR4415-96-91 10:02:00 Test Item Value Reference Range Interpretation Comments Hct (test code = Hct) 27.5 36.0-48.0 L [facility] HospitalOmbwnumJXFHWTSOAA1322-71-87 10:02:00 Test Item Value Reference Range Interpretation Comments RBC (test code = RBC) 3.34 4.20-5.40 L [facility] HospitalGhmbkjaEHZSOUBVPA2499-10-99 10:02:00 Test Item Value Reference Range Interpretation Comments Hgb (test code = Hgb) 9.7 12.0-16.0 L [facility] HospitalAimlvoiGVGDYDKERV5846-04-96 10:02:00 Test Item Value Reference Range Interpretation Comments WBC (test code = WBC) 5.0 3.7-10.4 N [facility] HospitalKkzintxAWREYPWCIS8833-31-15 10:02:00 Test Item Value Reference Range Interpretation Comments MPV (test code = MPV) 9.2 7.4-10.4 N [facility] HospitalXhqnxpzPRAZNXMACO2228-38-70 10:02:00 Test Item Value Reference Range Interpretation Comments Platelet (test code = Platelet) 240 133-450 N [facility] HospitalGzquqqqCWJPDRVFSJ0451-29-20 10:02:00 Test Item Value Reference Range Interpretation Comments RDW (test code = RDW) 14.3 11.5-14.5 N [facility] HospitalNeykodfFYGPZCBLJZ5494-52-98 10:02:00 Test Item Value Reference Range Interpretation Comments MCHC (test code = MCHC) 35.2 32.0-36.0 N [facility] HospitalYhmedexEDLXEJGVUG3136-82-47 10:02:00 Test Item Value Reference Range Interpretation Comments MCH (test code = MCH) 28.9 pg 27.0-31.0 N [facility] HospitalEhtavipEFLBRBIOBX9179-15-30 10:02:00 Test Item Value Reference Range Interpretation Comments MCV (test code = MCV) 82.1 81.0-99.0 N [facility] CenterShpnvjyCTUZODRTC2900-22-40 10:02:00 Test Item Value Reference Range Interpretation Comments Chloride Lvl (test code = Chloride Lvl) 105 95-109 N [facility] CenterCovtqixKNXDVEHFT4634-95-04 10:02:00 Test Item Value Reference Range Interpretation Comments Potassium Lvl (test code = Potassium 4.1 3.5-5.1 N Lvl) [facility] CenterHwkxambMHXVCXLFT1127-94-09 10:02:00 Test Item Value Reference Range Interpretation Comments Sodium Lvl (test code = Sodium Lvl) 143 135-145 N [facility] CenterEtxxgmwTHAJUEPHF5970-99-14 10:02:00 Test Item Value Reference Range Interpretation Comments CO2 (test code = CO2) 29 24-32 N [facility] CenterDzmizcgHLJZFHXWW9742-85-96 10:02:00 Test Item Value Reference Range Interpretation Comments Calcium Lvl (test code = Calcium Lvl) 8.7 8.5-10.5 N [facility] CenterCmwsfjgVKSIFMLHG2826-28-77 10:02:00 Test Item Value Reference Range Interpretation Comments BUN (test code = BUN) 6 7-22 L [facility] CenterEbgiyynUHMNEIONQ0308-82-32 10:02:00 Test Item Value Reference Range Interpretation Comments Creatinine Lvl (test code = Creatinine 0.6 0.5-1.4 N Lvl) [facility] CenterTejqoriMSNRYIBYD4934-95-37 10:02:00 Test Item Value Reference Range Interpretation Comments Glucose Lvl (test code = Glucose Lvl) 118 [facility] CenterKrpibfhZIPOYYKMB3718-17-85 10:02:00 Test Item Value Reference Range Interpretation Comments AGAP (test code = AGAP) 13.1 10.0-20.0 N [facility] HospitalJxskubxIVZLNTDDZU1604-69-72 10:02:00 Test Item Value Reference Range Interpretation Comments Basophils # (test code 0.0 See_Comment N [Aut omated message] The = Basophils #) system which generated this result tra nsmitted reference range : <=0.2. The reference r leo was not used to int erpret this result as normal/abnormal . [facility] HospitalNcgajgmTAUXFEPSEJ4913-25-07 10:02:00 Test Item Value Reference Range Interpretation Comments Monocytes # (test code 0.3 See_Comment N [Aut omated message] The = Monocytes #) system which generated this result tra nsmitted reference range : <=0.8. The reference r leo was not used to int erpret this result as normal/abnormal . [facility] HospitalJthrhmmZUIPRONFPY9310-65-09 10:02:00 Test Item Value Reference Range Interpretation Comments Eosinophils # (test code 0.1 See_Comment N [A utomated message] The = Eosinophils #) system whic h generated this result tra nsmitted reference range : <=0.5. The reference r leo was not used to int erpret this result as normal/abnormal . [facility] HospitalGziedygLXHGPYMNNW7106-28-33 10:02:00 Test Item Value Reference Range Interpretation Comments Segs-Bands # (test code = Segs-Bands #) 2.8 1.5-8.1 N [facility] HospitalGlgurvvHLNWVRNQLM4471-94-14 10:02:00 Test Item Value Reference Range Interpretation Comments Lymphocytes # (test code = Lymphocytes 1.7 1.0-5.5 N #) [facility] HospitalYypwglbOTMNZNQUZG9205-85-04 10:02:00 Test Item Value Reference Range Interpretation Comments Basophils (test code = 0.6 See_Comment N [Aut omated message] The Basophils) system which ge nerated this result tra nsmitted reference range : <=1.0. The reference r leo was not used to int erpret this result as normal/abnormal . [facility] HospitalXqmdgfjNKVABFOEET5159-29-32 10:02:00 Test Item Value Reference Range Interpretation Comments Monocytes (test code = Monocytes) 6.9 2.0-12.0 N [facility] HospitalVabbmfiGLTLIYCGLK3390-12-22 10:02:00 Test Item Value Reference Range Interpretation Comments Eosinophils (test code = 2.0 See_Comment N [A utomated message] The Eosinophils) system which ge nerated this result tra nsmitted reference range : <=4.0. The reference r leo was not used to int erpret this result as normal/abnormal . [facility] HospitalWlcgnvkCNFOPOPBCR0141-94-76 10:02:00 Test Item Value Reference Range Interpretation Comments Segs (test code = Segs) 55.8 45.0-75.0 N [facility] HospitalEnkfpgcCZNPLNRHGE9430-87-49 10:02:00 Test Item Value Reference Range Interpretation Comments Lymphocytes (test code = Lymphocytes) 34.7 20.0-40.0 N [facility] HospitalGwafkduPJJWWUGVMV5569-06-97 10:02:00 Test Item Value Reference Range Interpretation Comments PTT (test code = PTT) 32.2 s 22.9-35.8 N [facility] HospitalDspjqyqQGNXZZKBYZ5944-28-13 10:02:00 Test Item Value Reference Range Interpretation Comments PT (test code = PT) 13.3 s 12.0-14.7 N [facility] HospitalVdwrziiCKWXPSXPTQ4978-98-25 10:02:00 Test Item Value Reference Range Interpretation Comments INR (test code = INR) 1.01 0.85-1.17 N [facility] HospitalEbbwkevKNYHHSKYGJ5369-52-84 10:02:00 Test Item Value Reference Range Interpretation Comments Hct (test code = Hct) 27.5 36.0-48.0 L [facility] HospitalUlhiimmKXNICVUDHP5463-40-27 10:02:00 Test Item Value Reference Range Interpretation Comments RBC (test code = RBC) 3.34 4.20-5.40 L [facility] HospitalGszwdksTZNGVLXZRX3836-42-23 10:02:00 Test Item Value Reference Range Interpretation Comments Hgb (test code = Hgb) 9.7 12.0-16.0 L [facility] HospitalAeytcvsLFDRONZEZW2793-16-50 10:02:00 Test Item Value Reference Range Interpretation Comments WBC (test code = WBC) 5.0 3.7-10.4 N [facility] HospitalNysauvqEIKWMYEKBM0833-13-23 10:02:00 Test Item Value Reference Range Interpretation Comments MPV (test code = MPV) 9.2 7.4-10.4 N [facility] HospitalIzveqxfXZVWKGHQTM3611-85-05 10:02:00 Test Item Value Reference Range Interpretation Comments Platelet (test code = Platelet) 240 133-450 N [facility] HospitalGnlpfurRSFLVHDLZY6227-65-27 10:02:00 Test Item Value Reference Range Interpretation Comments RDW (test code = RDW) 14.3 11.5-14.5 N [facility] HospitalTlehaefXEVABOJMEI8827-15-03 10:02:00 Test Item Value Reference Range Interpretation Comments MCHC (test code = MCHC) 35.2 32.0-36.0 N [facility] HospitalKcbqvaqYSSOWJNLXD6703-37-78 10:02:00 Test Item Value Reference Range Interpretation Comments MCH (test code = MCH) 28.9 pg 27.0-31.0 N [facility] HospitalCkwufmaDCDXBEHKSK1081-01-92 10:02:00 Test Item Value Reference Range Interpretation Comments MCV (test code = MCV) 82.1 81.0-99.0 N [facility] CenterEdtexsbITUADIHUI0475-59-94 10:02:00 Test Item Value Reference Range Interpretation Comments Chloride Lvl (test code = Chloride Lvl) 105 95-109 N [facility] CenterCoccnwgVUSVGKXQM1390-09-99 10:02:00 Test Item Value Reference Range Interpretation Comments Potassium Lvl (test code = Potassium 4.1 3.5-5.1 N Lvl) [facility] CenterYvqivitEVZFDETWU2874-09-85 10:02:00 Test Item Value Reference Range Interpretation Comments Sodium Lvl (test code = Sodium Lvl) 143 135-145 N [facility] CenterKunydsoHVEBCZFNC2659-33-45 10:02:00 Test Item Value Reference Range Interpretation Comments CO2 (test code = CO2) 29 24-32 N [facility] CenterKkifbvuFTCRTYBNQ9788-64-21 10:02:00 Test Item Value Reference Range Interpretation Comments Calcium Lvl (test code = Calcium Lvl) 8.7 8.5-10.5 N [facility] CenterAwqtjspXLCMCGVUO6515-70-02 10:02:00 Test Item Value Reference Range Interpretation Comments BUN (test code = BUN) 6 7-22 L [facility] CenterHrywvrrFWCCGHPZZ3490-88-78 10:02:00 Test Item Value Reference Range Interpretation Comments Creatinine Lvl (test code = Creatinine 0.6 0.5-1.4 N Lvl) [facility] CenterEvjhdnaSSOPFNLQN1669-59-89 10:02:00 Test Item Value Reference Range Interpretation Comments Glucose Lvl (test code = Glucose Lvl) 118 [facility] CenterTxmeallBICCBWKHD9127-89-91 10:02:00 Test Item Value Reference Range Interpretation Comments AGAP (test code = AGAP) 13.1 10.0-20.0 N [facility] HospitalAkoehthGECSXCDZSI5570-98-60 10:02:00 Test Item Value Reference Range Interpretation Comments Basophils # (test code 0.0 See_Comment N [Aut omated message] The = Basophils #) system which generated this result tra nsmitted reference range : <=0.2. The reference r leo was not used to int erpret this result as normal/abnormal . [facility] HospitalWsegosiTHIFKPZZBR1795-04-54 10:02:00 Test Item Value Reference Range Interpretation Comments Monocytes # (test code 0.3 See_Comment N [Aut omated message] The = Monocytes #) system which generated this result tra nsmitted reference range : <=0.8. The reference r leo was not used to int erpret this result as normal/abnormal . [facility] HospitalRxvowwuCTVNYCEWDI5811-12-29 10:02:00 Test Item Value Reference Range Interpretation Comments Eosinophils # (test code 0.1 See_Comment N [A utomated message] The = Eosinophils #) system whic h generated this result tra nsmitted reference range : <=0.5. The reference r leo was not used to int erpret this result as normal/abnormal . [facility] HospitalMtoilefMGYCBHNMOQ3401-06-37 10:02:00 Test Item Value Reference Range Interpretation Comments Segs-Bands # (test code = Segs-Bands #) 2.8 1.5-8.1 N [facility] HospitalLedpwpjPZRNSKWTNT9322-23-42 10:02:00 Test Item Value Reference Range Interpretation Comments Lymphocytes # (test code = Lymphocytes 1.7 1.0-5.5 N #) [facility] HospitalXmjioycRPCKSQELRF2341-37-49 10:02:00 Test Item Value Reference Range Interpretation Comments Basophils (test code = 0.6 See_Comment N [Aut omated message] The Basophils) system which ge nerated this result tra nsmitted reference range : <=1.0. The reference r leo was not used to int erpret this result as normal/abnormal . [facility] HospitalKzuolgqTTSCJENIJN1269-20-17 10:02:00 Test Item Value Reference Range Interpretation Comments Monocytes (test code = Monocytes) 6.9 2.0-12.0 N [facility] HospitalJekmkieZYXCCAOUZL2922-37-26 10:02:00 Test Item Value Reference Range Interpretation Comments Eosinophils (test code = 2.0 See_Comment N [A utomated message] The Eosinophils) system which ge nerated this result tra nsmitted reference range : <=4.0. The reference r leo was not used to int erpret this result as normal/abnormal . [facility] HospitalLpfxsqlEZWGYZLJCW1552-76-63 10:02:00 Test Item Value Reference Range Interpretation Comments Segs (test code = Segs) 55.8 45.0-75.0 N [facility] HospitalZccgqcaTHOGMYYSPL1555-98-39 10:02:00 Test Item Value Reference Range Interpretation Comments Lymphocytes (test code = Lymphocytes) 34.7 20.0-40.0 N [facility] HospitalFoqplfhLYBBLHPTXZ2203-75-60 10:02:00 Test Item Value Reference Range Interpretation Comments PTT (test code = PTT) 32.2 s 22.9-35.8 N [facility] HospitalLhbhvgbCGCIFFUBAQ0548-75-27 10:02:00 Test Item Value Reference Range Interpretation Comments PT (test code = PT) 13.3 s 12.0-14.7 N [facility] HospitalQmfrfcwJDDPFDTVOO4132-85-02 10:02:00 Test Item Value Reference Range Interpretation Comments INR (test code = INR) 1.01 0.85-1.17 N [facility] HospitalVvifnbwFRCJUKVWOU3098-95-97 10:02:00 Test Item Value Reference Range Interpretation Comments Hct (test code = Hct) 27.5 36.0-48.0 L [facility] HospitalUbynucuXIFSIUWJCD4259-97-84 10:02:00 Test Item Value Reference Range Interpretation Comments RBC (test code = RBC) 3.34 4.20-5.40 L [facility] HospitalPgbfbxsYLQPPXKNCI2228-39-63 10:02:00 Test Item Value Reference Range Interpretation Comments Hgb (test code = Hgb) 9.7 12.0-16.0 L [facility] HospitalKnqlgviQTSGKCZAWS4345-84-29 10:02:00 Test Item Value Reference Range Interpretation Comments WBC (test code = WBC) 5.0 3.7-10.4 N [facility] HospitalUeojfcnTUQIIPYQUL9845-17-64 10:02:00 Test Item Value Reference Range Interpretation Comments MPV (test code = MPV) 9.2 7.4-10.4 N [facility] HospitalTtjgigaLXXZSQNAGZ1647-58-63 10:02:00 Test Item Value Reference Range Interpretation Comments Platelet (test code = Platelet) 240 133-450 N [facility] HospitalYzngtmoHQDRRTMLAO7986-00-19 10:02:00 Test Item Value Reference Range Interpretation Comments RDW (test code = RDW) 14.3 11.5-14.5 N [facility] HospitalLlxoyipZSMVIJPVLL6280-60-25 10:02:00 Test Item Value Reference Range Interpretation Comments MCHC (test code = MCHC) 35.2 32.0-36.0 N [facility] HospitalPjadwyzRRIEVHLANU1707-59-66 10:02:00 Test Item Value Reference Range Interpretation Comments MCH (test code = MCH) 28.9 pg 27.0-31.0 N [facility] HospitalPqpgyqfQGUQOQECJB9447-61-78 10:02:00 Test Item Value Reference Range Interpretation Comments MCV (test code = MCV) 82.1 81.0-99.0 N [facility] CenterOrhokwjMBMJDXJSA6947-38-19 09:24:00 Test Item Value Reference Range Interpretation Comments Magnesium Lvl (test code = Magnesium 2.1 1.8-2.4 N Lvl) [facility] CenterMxiljgnXBEEYLNVN9978-23-88 09:24:00 Test Item Value Reference Range Interpretation Comments Magnesium Lvl (test code = Magnesium 2.1 1.8-2.4 N Lvl) [facility] CenterZhmgfipMDKEQWLZK6816-74-40 09:24:00 Test Item Value Reference Range Interpretation Comments Magnesium Lvl (test code = Magnesium 2.1 1.8-2.4 N Lvl) [facility] CenterLjaszgsLCDROTKLO3170-76-05 09:24:00 Test Item Value Reference Range Interpretation Comments Magnesium Lvl (test code = Magnesium 2.1 1.8-2.4 N Lvl) [facility]pevXuuqgxfkcutp2415-79-35 00:32:00 Test Item Value Reference Range Interpretation Comments Culture: Aspirate/Body Fluid/Tissue (test code = Culture: Aspirate/Body Fluid/Tissue) [facility] TylerFoskcakQcrflpgahthh5485-27-51 00:32:00 Test Item Value Reference Range Interpretation Comments Culture: Anaerobic (test code = Culture: Anaerobic) [facility] TylerAijwcamDxknkzlfkowf6621-57-07 00:32:00 Test Item Value Reference Range Interpretation Comments Culture: Aspirate/Body Fluid/Tissue (test code = Culture: Aspirate/Body Fluid/Tissue) [facility] TylerGaozribPizwqhdhejtw4946-53-89 00:32:00 Test Item Value Reference Range Interpretation Comments Culture: Anaerobic (test code = Culture: Anaerobic) [facility] TylerJylphyhUevywtexpnxd9824-77-31 00:32:00 Test Item Value Reference Range Interpretation Comments Culture: Aspirate/Body Fluid/Tissue (test code = Culture: Aspirate/Body Fluid/Tissue) [facility] TylerCuhxpgfXmtzhaowbvbm0848-65-98 00:32:00 Test Item Value Reference Range Interpretation Comments Culture: Anaerobic (test code = Culture: Anaerobic) [facility] TylerQpkxsmaNnnqsyttxrrh4038-71-04 00:32:00 Test Item Value Reference Range Interpretation Comments Culture: Aspirate/Body Fluid/Tissue (test code = Culture: Aspirate/Body Fluid/Tissue) [facility] TylerHchodoaYcgussicayaj7366-22-07 00:32:00 Test Item Value Reference Range Interpretation Comments Culture: Anaerobic (test code = Culture: Anaerobic) [facility] CenterWkssiavUMYGGDUIK0368-80-54 17:10:00 Test Item Value Reference Range Interpretation Comments Temp Roberth (test code = Temp Roberth) 37.0 [facility] CenterAcvseyhTTECEXPQB1365-35-21 17:10:00 Test Item Value Reference Range Interpretation Comments O2 Sat Roberth (test code = O2 Sat Roberth) 27.0 40.0-70.0 L [facility] CenterRycgonqAZXYZCNYN5487-33-05 17:10:00 Test Item Value Reference Range Interpretation Comments pCO2 Roberth (test code = pCO2 Roberth) 47 38-52 N [facility] CenterEzqhvzmHLVUNEQYY5226-28-87 17:10:00 Test Item Value Reference Range Interpretation Comments pH Roberth (test code = pH Roberth) 7.37 7.28-7.42 N [facility] CenterBggnffdKSZZNLSXQ4820-22-77 17:10:00 Test Item Value Reference Range Interpretation Comments BE Roberth (test code = 1 See_Comment N [Automa rohit message] The BE Roberth) system which ge nerated this result transmit rohit reference range : <=2. The reference range was not used to interpr et this result as reji l/abnormal. [facility] CenterAynptwiJEZETRFWW5639-97-23 17:10:00 Test Item Value Reference Range Interpretation Comments HCO3 Roberth (test code = HCO3 Roberth) 27.2 22.0-26.0 H [facility] CenterCxyxgwoIZXOISCXW3946-63-86 17:10:00 Test Item Value Reference Range Interpretation Comments pO2 Roberth (test code = pO2 Robreth) 19 20-49 L [facility] CenterLfzqjnwATOPKHPXS2349-39-40 17:10:00 Test Item Value Reference Range Interpretation Comments Temp Roberth (test code = Temp Roberth) 37.0 [facility] CenterHjflcjiNGZLBGDMM5528-13-50 17:10:00 Test Item Value Reference Range Interpretation Comments O2 Sat Roberth (test code = O2 Sat Roberth) 27.0 40.0-70.0 L [facility] CenterIifjpkvKPTHKMKZK1492-82-12 17:10:00 Test Item Value Reference Range Interpretation Comments pCO2 Roberth (test code = pCO2 Roberth) 47 38-52 N [facility] CenterGbmvtnqWKSOTLUGQ8271-07-46 17:10:00 Test Item Value Reference Range Interpretation Comments pH Roberth (test code = pH Roberth) 7.37 7.28-7.42 N [facility] CenterQmdnuqrKHOILMEXQ3198-78-44 17:10:00 Test Item Value Reference Range Interpretation Comments BE Roberth (test code = 1 See_Comment N [Automa rohit message] The BE Roberth) system which ge nerated this result transmit rohit reference range : <=2. The reference range was not used to interpr et this result as reji l/abnormal. [facility] CenterUvsknumNSGIMZXDY6315-02-75 17:10:00 Test Item Value Reference Range Interpretation Comments HCO3 Roberth (test code = HCO3 Roberth) 27.2 22.0-26.0 H [facility] CenterSvhjnxsKNCFOYXXG6525-85-62 17:10:00 Test Item Value Reference Range Interpretation Comments pO2 Roberth (test code = pO2 Roberth) 19 20-49 L [facility] CenterRbrrhfdRETWBGCML5842-46-03 17:10:00 Test Item Value Reference Range Interpretation Comments Temp Roberth (test code = Temp Roberth) 37.0 [facility] CenterMshrhsyDYQMUXZAQ8391-86-55 17:10:00 Test Item Value Reference Range Interpretation Comments O2 Sat Roberth (test code = O2 Sat Roberth) 27.0 40.0-70.0 L [facility] CenterAyatsueMJMXGTRKT0075-19-78 17:10:00 Test Item Value Reference Range Interpretation Comments pCO2 Roberth (test code = pCO2 Roberth) 47 38-52 N [facility] CenterTuifdyyKCCBSRBSQ4974-38-59 17:10:00 Test Item Value Reference Range Interpretation Comments pH Roberth (test code = pH Roberth) 7.37 7.28-7.42 N [facility] CenterNuiwzarQCVJVDVDM6149-21-14 17:10:00 Test Item Value Reference Range Interpretation Comments BE Roberth (test code = 1 See_Comment N [Automa rohit message] The BE Roberth) system which ge nerated this result transmit rohit reference range : <=2. The reference range was not used to interpr et this result as reji l/abnormal. [facility] CenterUakvfmqLVNKJWGMR6054-98-83 17:10:00 Test Item Value Reference Range Interpretation Comments HCO3 Roberth (test code = HCO3 Roberth) 27.2 22.0-26.0 H [facility] CenterZfjykqrAYTYNLBZV2822-86-70 17:10:00 Test Item Value Reference Range Interpretation Comments pO2 Roberth (test code = pO2 Roberth) 19 20-49 L [facility] CenterHvqzcbuAIXJGLRWT9684-82-51 17:10:00 Test Item Value Reference Range Interpretation Comments Temp Roberth (test code = Temp Roberth) 37.0 [facility] CenterRwrmbraINVNLNSQU3990-43-73 17:10:00 Test Item Value Reference Range Interpretation Comments O2 Sat Roberth (test code = O2 Sat Roberth) 27.0 40.0-70.0 L [facility] CenterEgsbsmsDZQSUTKIU3776-29-38 17:10:00 Test Item Value Reference Range Interpretation Comments pCO2 Roberth (test code = pCO2 Roberth) 47 38-52 N [facility] CenterEugfzlmWUBOSFWXN8624-63-26 17:10:00 Test Item Value Reference Range Interpretation Comments pH Roberth (test code = pH Roberth) 7.37 7.28-7.42 N [facility] CenterHtdcvihJTDVZSMBV7267-10-82 17:10:00 Test Item Value Reference Range Interpretation Comments BE Roberth (test code = 1 See_Comment N [Automa rohit message] The BE Roberth) system which ge nerated this result transmit rohit reference range : <=2. The reference range was not used to interpr et this result as reji l/abnormal. [facility] CenterVnaustiHRBFXULSK7461-99-03 17:10:00 Test Item Value Reference Range Interpretation Comments HCO3 Roberth (test code = HCO3 Roberth) 27.2 22.0-26.0 H [facility] CenterYugabhoESOXNPANM4549-22-37 17:10:00 Test Item Value Reference Range Interpretation Comments pO2 Roberth (test code = pO2 Roberth) 19 20-49 L [facility]NjdmnopPpmhmdpkboaq6398-09-01 14:18:00 Test Item Value Reference Range Interpretation Comments Culture: Blood (test code = Culture: Blood) [facility]WwwvmtxZfuheprkwemg3056-87-78 14:18:00 Test Item Value Reference Range Interpretation Comments Culture: Wound/Abscess w/Gram Stain (test code = Culture: Wound/Abscess w/Gram Stain) [facility] TylerFdvlvkuNxkrznfbejgc4923-20-20 14:18:00 Test Item Value Reference Range Interpretation Comments Culture: Blood (test code = Culture: Blood) [facility] TylerHnzgkzdKhqfkytmomrr0394-09-78 14:18:00 Test Item Value Reference Range Interpretation Comments Culture: Wound/Abscess w/Gram Stain (test code = Culture: Wound/Abscess w/Gram Stain) [facility] TylerXrwlwziMenkhekxagcs1438-23-31 14:18:00 Test Item Value Reference Range Interpretation Comments Culture: Blood (test code = Culture: Blood) [facility] TylerEvgtiryMqjnshgrgcpu4841-17-31 14:18:00 Test Item Value Reference Range Interpretation Comments Culture: Wound/Abscess w/Gram Stain (test code = Culture: Wound/Abscess w/Gram Stain) [facility] TylerVghibieJvtbommwrcrq2681-55-70 14:18:00 Test Item Value Reference Range Interpretation Comments Culture: Blood (test code = Culture: Blood) [facility] TylerHuymfmaHgijubvdbglw6516-11-21 14:18:00 Test Item Value Reference Range Interpretation Comments Culture: Wound/Abscess w/Gram Stain (test code = Culture: Wound/Abscess w/Gram Stain) [facility] CenterIegkqecXJWLIPTSJ6709-93-72 13:09:00 Test Item Value Reference Range Interpretation Comments Lactic Acid Lvl (test code = Lactic 1.0 0.5-2.2 N Acid Lvl) [facility] CenterZkmdmudGSNZLTGDF2180-27-49 13:09:00 Test Item Value Reference Range Interpretation Comments Lactic Acid Lvl (test code = Lactic 1.0 0.5-2.2 N Acid Lvl) [facility] CenterIjlgzioZIPZGSFGM6568-03-10 13:09:00 Test Item Value Reference Range Interpretation Comments Lactic Acid Lvl (test code = Lactic 1.0 0.5-2.2 N Acid Lvl) [facility] CenterKzcnrfrMXWJQGOCJ2240-61-85 13:09:00 Test Item Value Reference Range Interpretation Comments Lactic Acid Lvl (test code = Lactic 1.0 0.5-2.2 N Acid Lvl) [facility] CenterJfzkzejYPQXOROZZ6034-55-05 12:20:00 Test Item Value Reference Range Interpretation Comments U Preg (test code = U Negative (09/01/2011 N Preg) 07:20:00) [facility]EntssxvMJNBMOVLOI2682-96-05 12:20:00 Test Item Value Reference Range Interpretation Comments UA Sq Epi (test code Occasional /LPF N = UA Sq Epi) (09/01/2011 07:20:00) [facility] HospitalNpglszqPCVJDLMKNJ9520-92-40 12:20:00 Test Item Value Reference Range Interpretation Comments UA Leuk Est (test Negative (09/01/2011 N code = UA Leuk Est) 07:20:00) [facility] HospitalJbcwgmqAARNJFGEEX4695-32-59 12:20:00 Test Item Value Reference Range Interpretation Comments UA Nitrite (test code Negative (09/01/2011 N = UA Nitrite) 07:20:00) [facility] HospitalQcrvjezHVLDJMKVFX4334-34-71 12:20:00 Test Item Value Reference Range Interpretation Comments UA Urobilinogen (test code = UA 0.2 0.1-1.0 N Urobilinogen) [facility] HospitalGdpyamdGLBVVEPGCK6770-85-98 12:20:00 Test Item Value Reference Range Interpretation Comments UA Blood (test code = Negative (09/01/2011 N UA Blood) 07:20:00) [facility] HospitalSctdfsgCCJYIBZXZH0073-32-98 12:20:00 Test Item Value Reference Range Interpretation Comments UA Ketones (test code = >=80 mg/dL A UA Ketones) *ABN*(09/01/2011 07:20:00) [facility] HospitalQdenflxZPIQWCJXWL8339-95-63 12:20:00 Test Item Value Reference Range Interpretation Comments UA Protein (test code Negative (09/01/2011 N = UA Protein) 07:20:00) [facility] HospitalXofyrlgCJTBSDZFBD9446-75-83 12:20:00 Test Item Value Reference Range Interpretation Comments UA pH (test code = UA pH) 6.0 1 5.0-8.0 N [facility] HospitalUljpdbqMBJHVYXLRC4207-96-63 12:20:00 Test Item Value Reference Range Interpretation Comments UA Bili (test code = Negative (09/01/2011 N UA Bili) 07:20:00) [facility] HospitalYqnvhbkFKFKFGGUZB8008-58-31 12:20:00 Test Item Value Reference Range Interpretation Comments UA Glucose (test code = >=1000 mg/dL A UA Glucose) *ABN*(09/01/2011 07:20:00) [facility]HugnavrRWJOVXZLCP2921-52-28 12:20:00 Test Item Value Reference Range Interpretation Comments UA Spec Grav (test code = UA Spec 1.035 1 H Grav) [facility] TexasCopeanuOPXSMMPDJB9702-88-73 12:20:00 Test Item Value Reference Range Interpretation Comments UA Turbidity (test code = Clear (09/01/2011 N UA Turbidity) 07:20:00) [facility] CenterSnxtncgGCUPUMPFTX1995-81-56 12:20:00 Test Item Value Reference Range Interpretation Comments UA Color (test code = Yellow *NA*(09/01/2011 UA Color) 07:20:00) [facility] TexasRlkttjlTCMIPVQCK1762-80-97 12:20:00 Test Item Value Reference Range Interpretation Comments U Preg (test code = U Negative (09/01/2011 N Preg) 07:20:00) [facility] TexasPhzsrfqNTIIEAHFGE3279-87-94 12:20:00 Test Item Value Reference Range Interpretation Comments UA Sq Epi (test code Occasional /LPF N = UA Sq Epi) (09/01/2011 07:20:00) [facility] TexasZhmhpzpUMUPVILWJZ1411-94-30 12:20:00 Test Item Value Reference Range Interpretation Comments UA Leuk Est (test Negative (09/01/2011 N code = UA Leuk Est) 07:20:00) [facility] TexasRtjegcmQYODPUFWTN9714-03-08 12:20:00 Test Item Value Reference Range Interpretation Comments UA Nitrite (test code Negative (09/01/2011 N = UA Nitrite) 07:20:00) [facility] TexasUzgibbgLLTFJCZTBK8201-23-87 12:20:00 Test Item Value Reference Range Interpretation Comments UA Urobilinogen (test code = UA 0.2 0.1-1.0 N Urobilinogen) [facility] TexasKxfrbbqUIVPXTUJEO3027-46-35 12:20:00 Test Item Value Reference Range Interpretation Comments UA Blood (test code = Negative (09/01/2011 N UA Blood) 07:20:00) [facility] TexasMdgvxqfZABIVXMIIM7681-06-24 12:20:00 Test Item Value Reference Range Interpretation Comments UA Ketones (test code = >=80 mg/dL A UA Ketones) *ABN*(09/01/2011 07:20:00) [facility] TexasFkbexqkAQPAUVBYHS1802-23-24 12:20:00 Test Item Value Reference Range Interpretation Comments UA Protein (test code Negative (09/01/2011 N = UA Protein) 07:20:00) [facility] TexasKapyfxfUYSFQLUZQM0363-56-62 12:20:00 Test Item Value Reference Range Interpretation Comments UA pH (test code = UA pH) 6.0 1 5.0-8.0 N [facility] CenterBpvbgxlCJBKUUNDTJ4910-10-40 12:20:00 Test Item Value Reference Range Interpretation Comments UA Bili (test code = Negative (09/01/2011 N UA Bili) 07:20:00) [facility] TexasHcepyhjNUEMYZTLKF0881-59-01 12:20:00 Test Item Value Reference Range Interpretation Comments UA Glucose (test code = >=1000 mg/dL A UA Glucose) *ABN*(09/01/2011 07:20:00) [facility] TexasThquptdSXTERRESOS6375-69-00 12:20:00 Test Item Value Reference Range Interpretation Comments UA Spec Grav (test code = UA Spec 1.035 1 H Grav) [facility] TexasMrfdhgtMRXVYSVSRX0532-31-51 12:20:00 Test Item Value Reference Range Interpretation Comments UA Turbidity (test code = Clear (09/01/2011 N UA Turbidity) 07:20:00) [facility] TexasVwatrbeJIBEIFDHQA6118-42-59 12:20:00 Test Item Value Reference Range Interpretation Comments UA Color (test code = Yellow *NA*(09/01/2011 UA Color) 07:20:00) [facility] CenterLovfbzkAVHPLWUTQ6534-81-70 12:20:00 Test Item Value Reference Range Interpretation Comments U Preg (test code = U Negative (09/01/2011 N Preg) 07:20:00) [facility] TexasIirclnkKSVLWHEPIZ8382-62-01 12:20:00 Test Item Value Reference Range Interpretation Comments UA Sq Epi (test code Occasional /LPF N = UA Sq Epi) (09/01/2011 07:20:00) [facility] TexasCppwcynKTBILXMHNV1311-65-41 12:20:00 Test Item Value Reference Range Interpretation Comments UA Leuk Est (test Negative (09/01/2011 N code = UA Leuk Est) 07:20:00) [facility] TexasNugqhojTKRESQHHIX6556-77-06 12:20:00 Test Item Value Reference Range Interpretation Comments UA Nitrite (test code Negative (09/01/2011 N = UA Nitrite) 07:20:00) [facility]QoycumxSMSOIFBBYG4156-10-89 12:20:00 Test Item Value Reference Range Interpretation Comments UA Urobilinogen (test code = UA 0.2 0.1-1.0 N Urobilinogen) [facility] CenterXgevmdjQOKYOCZXUU1144-36-16 12:20:00 Test Item Value Reference Range Interpretation Comments UA Blood (test code = Negative (09/01/2011 N UA Blood) 07:20:00) [facility] CenterJijrijyABAZBUZHDF3235-11-18 12:20:00 Test Item Value Reference Range Interpretation Comments UA Ketones (test code = >=80 mg/dL A UA Ketones) *ABN*(09/01/2011 07:20:00) [facility] CenterGbnmoapBEJXRKEOQZ4603-73-66 12:20:00 Test Item Value Reference Range Interpretation Comments UA Protein (test code Negative (09/01/2011 N = UA Protein) 07:20:00) [facility] CenterMxrlwaqWLWCXDVDVP0943-51-39 12:20:00 Test Item Value Reference Range Interpretation Comments UA pH (test code = UA pH) 6.0 1 5.0-8.0 N [facility] CenterFiqvlijDYETIRVPQA1962-60-72 12:20:00 Test Item Value Reference Range Interpretation Comments UA Bili (test code = Negative (09/01/2011 N UA Bili) 07:20:00) [facility] CenterEvlntyaTENIMOBALG6273-40-19 12:20:00 Test Item Value Reference Range Interpretation Comments UA Glucose (test code = >=1000 mg/dL A UA Glucose) *ABN*(09/01/2011 07:20:00) [facility] CenterOgatlmbJTATWRFVPT0174-54-17 12:20:00 Test Item Value Reference Range Interpretation Comments UA Spec Grav (test code = UA Spec 1.035 1 H Grav) [facility] CenterTuxondnJVYLGRYKOF1124-33-37 12:20:00 Test Item Value Reference Range Interpretation Comments UA Turbidity (test code = Clear (09/01/2011 N UA Turbidity) 07:20:00) [facility] HospitalJxzavyqKWGAACGMYG3733-73-96 12:20:00 Test Item Value Reference Range Interpretation Comments UA Color (test code = Yellow *NA*(09/01/2011 UA Color) 07:20:00) [facility] CenterFhbjfyfGKNFJGJSQ4525-41-68 12:20:00 Test Item Value Reference Range Interpretation Comments U Preg (test code = U Negative (09/01/2011 N Preg) 07:20:00) [facility] CenterVkxbaphSWBOMZQNRB8074-95-07 12:20:00 Test Item Value Reference Range Interpretation Comments UA Sq Epi (test code Occasional /LPF N = UA Sq Epi) (09/01/2011 07:20:00) [facility] CenterHespuqvPOEWCIJJNT2287-53-79 12:20:00 Test Item Value Reference Range Interpretation Comments UA Leuk Est (test Negative (09/01/2011 N code = UA Leuk Est) 07:20:00) [facility] TexasWiwjcunLZWGNURVGA8759-76-37 12:20:00 Test Item Value Reference Range Interpretation Comments UA Nitrite (test code Negative (09/01/2011 N = UA Nitrite) 07:20:00) [facility] TexasQlsantsIVNMXHWISP5249-35-62 12:20:00 Test Item Value Reference Range Interpretation Comments UA Urobilinogen (test code = UA 0.2 0.1-1.0 N Urobilinogen) [facility] TexasZaegnztEFBKDPUIIH2128-48-04 12:20:00 Test Item Value Reference Range Interpretation Comments UA Blood (test code = Negative (09/01/2011 N UA Blood) 07:20:00) [facility] TexasBotxhqeLSVNQAMTAN7736-71-28 12:20:00 Test Item Value Reference Range Interpretation Comments UA Ketones (test code = >=80 mg/dL A UA Ketones) *ABN*(09/01/2011 07:20:00) [facility] TexasFoygjvrHYIREGHVMM1337-25-28 12:20:00 Test Item Value Reference Range Interpretation Comments UA Protein (test code Negative (09/01/2011 N = UA Protein) 07:20:00) [facility] TexasKtrkiazBEXRBJTAQF0435-70-69 12:20:00 Test Item Value Reference Range Interpretation Comments UA pH (test code = UA pH) 6.0 1 5.0-8.0 N [facility] TexasOcuunwyBRJWFJAVPW5903-85-78 12:20:00 Test Item Value Reference Range Interpretation Comments UA Bili (test code = Negative (09/01/2011 N UA Bili) 07:20:00) [facility] HospitalQdrkxzkIZNHHJSEUS4909-72-31 12:20:00 Test Item Value Reference Range Interpretation Comments UA Glucose (test code = >=1000 mg/dL A UA Glucose) *ABN*(09/01/2011 07:20:00) [facility]GonjmywJWFSDFYINC0660-44-33 12:20:00 Test Item Value Reference Range Interpretation Comments UA Spec Grav (test code = UA Spec 1.035 1 H Grav) [facility] CenterJbstfkcOSYMBYYZPX2959-49-80 12:20:00 Test Item Value Reference Range Interpretation Comments UA Turbidity (test code = Clear (09/01/2011 N UA Turbidity) 07:20:00) [facility] CenterFuaispdCSOGSWAPCX0103-40-94 12:20:00 Test Item Value Reference Range Interpretation Comments UA Color (test code = Yellow *NA*(09/01/2011 UA Color) 07:20:00) [facility] CenterReecijfZPAXZJKOB2844-50-68 08:00:00 Test Item Value Reference Range Interpretation Comments Lactic Acid Lvl (test code = Lactic 2.8 0.5-2.2 H Acid Lvl) [facility] CenterSfzpwgrTRRLJEUTE3338-32-47 08:00:00 Test Item Value Reference Range Interpretation Comments Lactic Acid Lvl (test code = Lactic 2.8 0.5-2.2 H Acid Lvl) [facility] CenterUlgubgbPRCRDRESS1852-09-94 08:00:00 Test Item Value Reference Range Interpretation Comments Lactic Acid Lvl (test code = Lactic 2.8 0.5-2.2 H Acid Lvl) [facility] CenterVojacslBJENCUWSJ5638-38-25 08:00:00 Test Item Value Reference Range Interpretation Comments Lactic Acid Lvl (test code = Lactic 2.8 0.5-2.2 H Acid Lvl) [facility] CenterJuvnctwLLZTMPYWO0441-41-35 07:47:00 Test Item Value Reference Range Interpretation Comments Magnesium Lvl (test code = Magnesium 1.5 1.8-2.4 L Lvl) [facility] HospitalXrkdcxwASMNHEKBGF3778-03-75 07:47:00 Test Item Value Reference Range Interpretation Comments Polychrom (test code = Slight (09/01/2011 N Polychrom) 02:47:00) [facility] HospitalIzulsbpCZNNRHGINO4778-83-02 07:47:00 Test Item Value Reference Range Interpretation Comments Anisocyte (test code = 1+ *ABN*(09/01/2011 A Anisocyte) 02:47:00) [facility] HospitalUtiuifdAPIDAOKWRH1565-76-25 07:47:00 Test Item Value Reference Range Interpretation Comments Large Plt (test code = Slight *ABN*(09/01/2011 A Large Plt) 02:47:00) [facility] HospitalIdiqsfdLZBDKYTZIF1008-29-35 07:47:00 Test Item Value Reference Range Interpretation Comments Tear Cell (test code = Tear Cell) [facility] HospitalYaollkjZREZTVRGLY9608-45-69 07:47:00 Test Item Value Reference Range Interpretation Comments Elliptocyte (test code = Slight A Elliptocyte) *ABN*(09/01/2011 02:47:00) [facility] CenterClvwkrrVLCDKDDZM0775-99-96 07:47:00 Test Item Value Reference Range Interpretation Comments Magnesium Lvl (test code = Magnesium 1.5 1.8-2.4 L Lvl) [facility] HospitalNffsaaeQMWQZVWWBR5307-62-07 07:47:00 Test Item Value Reference Range Interpretation Comments Polychrom (test code = Slight (09/01/2011 N Polychrom) 02:47:00) [facility] HospitalCfuugiySSGQKHLRUA9164-28-51 07:47:00 Test Item Value Reference Range Interpretation Comments Anisocyte (test code = 1+ *ABN*(09/01/2011 A Anisocyte) 02:47:00) [facility] HospitalBnxgusuNNBFHJDQIA1058-35-28 07:47:00 Test Item Value Reference Range Interpretation Comments Large Plt (test code = Slight *ABN*(09/01/2011 A Large Plt) 02:47:00) [facility] HospitalYcczvurIZPCDFQHOB2495-95-38 07:47:00 Test Item Value Reference Range Interpretation Comments Tear Cell (test code = Tear Cell) [facility] HospitalExcojwaPTRKQHMUHJ3964-00-15 07:47:00 Test Item Value Reference Range Interpretation Comments Elliptocyte (test code = Slight A Elliptocyte) *ABN*(09/01/2011 02:47:00) [facility] CenterDqvlttoDQCOKZGIA3305-61-90 07:47:00 Test Item Value Reference Range Interpretation Comments Magnesium Lvl (test code = Magnesium 1.5 1.8-2.4 L Lvl) [facility] HospitalUpvnxfwBPQOSPEHAO0509-20-88 07:47:00 Test Item Value Reference Range Interpretation Comments Polychrom (test code = Slight (09/01/2011 N Polychrom) 02:47:00) [facility] HospitalEsztjqsNDHYPJAKZG0555-04-92 07:47:00 Test Item Value Reference Range Interpretation Comments Anisocyte (test code = 1+ *ABN*(09/01/2011 A Anisocyte) 02:47:00) [facility] HospitalQimqqgfPTIYJZURIK2626-65-43 07:47:00 Test Item Value Reference Range Interpretation Comments Large Plt (test code = Slight *ABN*(09/01/2011 A Large Plt) 02:47:00) [facility] HospitalUhaeicmVDODMDULZW8400-48-03 07:47:00 Test Item Value Reference Range Interpretation Comments Tear Cell (test code = Tear Cell) [facility] HospitalTjxuncvPDSLEASIHX4744-72-29 07:47:00 Test Item Value Reference Range Interpretation Comments Elliptocyte (test code = Slight A Elliptocyte) *ABN*(09/01/2011 02:47:00) [facility] CenterQxfzeczEFNAQYGSR3577-42-42 07:47:00 Test Item Value Reference Range Interpretation Comments Magnesium Lvl (test code = Magnesium 1.5 1.8-2.4 L Lvl) [facility] HospitalDffclseBHQKNDNCND9769-97-78 07:47:00 Test Item Value Reference Range Interpretation Comments Polychrom (test code = Slight (09/01/2011 N Polychrom) 02:47:00) [facility] HospitalFjnxlwaKAXEQFKPNJ9927-56-72 07:47:00 Test Item Value Reference Range Interpretation Comments Anisocyte (test code = 1+ *ABN*(09/01/2011 A Anisocyte) 02:47:00) [facility] HospitalTnilkxeSEIXQXWTYQ8895-84-22 07:47:00 Test Item Value Reference Range Interpretation Comments Large Plt (test code = Slight *ABN*(09/01/2011 A Large Plt) 02:47:00) [facility] HospitalLlljinvNRYZSQTYZW2390-68-51 07:47:00 Test Item Value Reference Range Interpretation Comments Tear Cell (test code = Tear Cell) [facility] HospitalDwzoywpTNCXUYQNUN0317-85-54 07:47:00 Test Item Value Reference Range Interpretation Comments Elliptocyte (test code = Slight A Elliptocyte) *ABN*(09/01/2011 02:47:00) [facility] GLUCOSE RRVCBFA8320-98-90 17:02:00 Test Item Value Reference Range Interpretation Comments Comment1 (test code = Comment1) Notify RN/ [facility] GLUCOSE BSYZYZZ2312-05-24 17:02:00 Test Item Value Reference Range Interpretation Comments Gluc POC Lifscn (test code = Gluc POC 134 65-110 H Lifscn) [facility] GLUCOSE IKKKLMH1709-19-78 17:02:00 Test Item Value Reference Range Interpretation Comments Comment1 (test code = Comment1) Notify RN/ [facility] GLUCOSE JCCBFMK4291-94-79 17:02:00 Test Item Value Reference Range Interpretation Comments Gluc POC Lifscn (test code = Gluc POC 134 65-110 H Lifscn) [facility] GLUCOSE WXCDTEV1769-36-98 17:02:00 Test Item Value Reference Range Interpretation Comments Comment1 (test code = Comment1) Notify RN/ [facility] GLUCOSE KUVVFEJ0282-71-31 17:02:00 Test Item Value Reference Range Interpretation Comments Gluc POC Lifscn (test code = Gluc POC 134 65-110 H Lifscn) [facility] GLUCOSE QPPDZJK6896-72-45 17:02:00 Test Item Value Reference Range Interpretation Comments Comment1 (test code = Comment1) Notify RN/ [facility] GLUCOSE WJZRCAJ5850-08-04 17:02:00 Test Item Value Reference Range Interpretation Comments Gluc POC Lifscn (test code = Gluc POC 134 65-110 H Lifscn) [facility] GLUCOSE XGCGKIC9417-37-06 13:45:00 Test Item Value Reference Range Interpretation Comments Gluc POC Lifscn (test code = Gluc POC 182 65-110 H Lifscn) [facility] GLUCOSE LLGORWI2181-31-37 13:45:00 Test Item Value Reference Range Interpretation Comments Comment1 (test code = Comment1) Notify RN/ [facility] GLUCOSE ZVGFNVK6890-97-89 13:45:00 Test Item Value Reference Range Interpretation Comments Gluc POC Lifscn (test code = Gluc POC 182 65-110 H Lifscn) [facility] GLUCOSE [id number] 13:45:00 Test Item Value Reference Range Interpretation Comments Comment1 (test code = Comment1) Notify RN/ [facility] GLUCOSE PDWCJEW7620-58-81 13:45:00 Test Item Value Reference Range Interpretation Comments Gluc POC Lifscn (test code = Gluc POC 182 65-110 H Lifscn) [facility] GLUCOSE CUSZYFF3791-94-75 13:45:00 Test Item Value Reference Range Interpretation Comments Comment1 (test code = Comment1) Notify RN/ [facility] GLUCOSE TBHIKMR7314-03-41 13:45:00 Test Item Value Reference Range Interpretation Comments Gluc POC Lifscn (test code = Gluc POC 182 65-110 H Lifscn) [facility] GLUCOSE PCCQEMU1507-74-58 13:45:00 Test Item Value Reference Range Interpretation Comments Comment1 (test code = Comment1) Notify TABATHA/ [facility] CenterHsfyleqFFNAPDQWK5232-36-36 10:22:00 Test Item Value Reference Range Interpretation Comments Phosphorus (test code = Phosphorus) 3.0 2.5-4.5 N [facility] CenterQmrovapXZIBUTNMF5285-60-48 10:22:00 Test Item Value Reference Range Interpretation Comments Magnesium Lvl (test code = Magnesium 1.8 1.8-2.4 N Lvl) [facility] CenterEiqschnYQZPHKQYC1164-95-84 10:22:00 Test Item Value Reference Range Interpretation Comments Chloride Lvl (test code = Chloride Lvl) 107 95-109 N [facility] CenterTopjszwFGPQXTSDS0790-95-63 10:22:00 Test Item Value Reference Range Interpretation Comments Potassium Lvl (test code = Potassium 3.0 3.5-5.1 A Lvl) [facility] CenterWzvanejWAQKCCOQH8243-87-02 10:22:00 Test Item Value Reference Range Interpretation Comments Sodium Lvl (test code = Sodium Lvl) 141 135-145 N [facility] CenterPfiqeoaXFMQXACDY1364-47-86 10:22:00 Test Item Value Reference Range Interpretation Comments Creatinine Lvl (test code = Creatinine 0.6 0.5-1.4 N Lvl) [facility] CenterUrwtaaxIUXJDCNGB0072-26-74 10:22:00 Test Item Value Reference Range Interpretation Comments CO2 (test code = CO2) 23 24-32 L [facility] CenterDeduvdfYTGUYNRIJ5171-47-74 10:22:00 Test Item Value Reference Range Interpretation Comments Calcium Lvl (test code = Calcium Lvl) 7.3 8.5-10.5 L [facility] CenterAcmjdyzZJXTFXORX0162-97-88 10:22:00 Test Item Value Reference Range Interpretation Comments Glucose Lvl (test code = Glucose Lvl) 136 [facility] CenterWmraicmHBMCSYNBD3715-51-53 10:22:00 Test Item Value Reference Range Interpretation Comments AGAP (test code = AGAP) 14.0 10.0-20.0 N [facility] CenterTrdynygOMJKELNON7664-43-51 10:22:00 Test Item Value Reference Range Interpretation Comments BUN (test code = BUN) 5 7-22 L [facility] HospitalWqbuxkeMKVWDGYFJO8617-28-76 10:22:00 Test Item Value Reference Range Interpretation Comments Segs (test code = Segs) 69.6 45.0-75.0 N [facility] HospitalWgdehimCSFJAGFVOP2534-12-08 10:22:00 Test Item Value Reference Range Interpretation Comments Lymphocytes (test code = Lymphocytes) 21.5 20.0-40.0 N [facility] HospitalIzzguytDMQUSEPFDB2657-65-04 10:22:00 Test Item Value Reference Range Interpretation Comments Monocytes (test code = Monocytes) 7.6 2.0-12.0 N [facility] HospitalCabwkfpCVOQGYPQJY3949-56-22 10:22:00 Test Item Value Reference Range Interpretation Comments Eosinophils (test code = 1.0 See_Comment N [A utomated message] The Eosinophils) system which ge nerated this result tra nsmitted reference range : <=4.0. The reference r leo was not used to int erpret this result as normal/abnormal . [facility] HospitalHzpdemtELVRUYWDQP4675-36-93 10:22:00 Test Item Value Reference Range Interpretation Comments Basophils (test code = 0.3 See_Comment N [Aut omated message] The Basophils) system which ge nerated this result tra nsmitted reference range : <=1.0. The reference r leo was not used to int erpret this result as normal/abnormal . [facility] HospitalMhxlikyQMDSMHKFJZ0638-71-80 10:22:00 Test Item Value Reference Range Interpretation Comments Segs-Bands # (test code = Segs-Bands #) 4.8 1.5-8.1 N [facility] HospitalKklreeaXUKUMKKNRE1212-41-35 10:22:00 Test Item Value Reference Range Interpretation Comments Eosinophils # (test code 0.1 See_Comment N [A utomated message] The = Eosinophils #) system whic h generated this result tra nsmitted reference range : <=0.5. The reference r leo was not used to int erpret this result as normal/abnormal . [facility] HospitalHtfkbabWRHOCFAZEK0471-64-74 10:22:00 Test Item Value Reference Range Interpretation Comments Lymphocytes # (test code = Lymphocytes 1.5 1.0-5.5 N #) [facility] HospitalKdvptkbRVOJSXVRTO4618-58-99 10:22:00 Test Item Value Reference Range Interpretation Comments Monocytes # (test code 0.5 See_Comment N [Aut omated message] The = Monocytes #) system which generated this result tra nsmitted reference range : <=0.8. The reference r leo was not used to int erpret this result as normal/abnormal . [facility] HospitalWlvdgsrPUDLOQBIWL6945-89-56 10:22:00 Test Item Value Reference Range Interpretation Comments Basophils # (test code 0.0 See_Comment N [Aut omated message] The = Basophils #) system which generated this result tra nsmitted reference range : <=0.2. The reference r leo was not used to int erpret this result as normal/abnormal . [facility] HospitalGlaohffKHWXNGZUSI7584-23-45 10:22:00 Test Item Value Reference Range Interpretation Comments MPV (test code = MPV) 11.0 7.4-10.4 H [facility] HospitalGexzqwyBQJTQUSGOI6963-48-49 10:22:00 Test Item Value Reference Range Interpretation Comments Platelet (test code = Platelet) 161 133-450 N [facility] HospitalEzhxlelPPWSFSZPKD8771-02-52 10:22:00 Test Item Value Reference Range Interpretation Comments MCH (test code = MCH) 29.6 pg 27.0-31.0 N [facility] HospitalRyabppiAMCBLPOMZJ6447-36-16 10:22:00 Test Item Value Reference Range Interpretation Comments MCHC (test code = MCHC) 35.4 32.0-36.0 N [facility] HospitalAgtgaczWRXFNJFGRZ0270-07-88 10:22:00 Test Item Value Reference Range Interpretation Comments RDW (test code = RDW) 14.1 11.5-14.5 N [facility] HospitalZtzmtxkIWDOQBYHMM7176-79-47 10:22:00 Test Item Value Reference Range Interpretation Comments WBC (test code = WBC) 6.8 3.7-10.4 N [facility] HospitalEytyufzJHARCMZPJX9118-59-09 10:22:00 Test Item Value Reference Range Interpretation Comments MCV (test code = MCV) 83.5 81.0-99.0 N [facility] HospitalEyjzhrtDVWYTQIDMG7540-04-26 10:22:00 Test Item Value Reference Range Interpretation Comments RBC (test code = RBC) 4.44 4.20-5.40 N [facility] HospitalVqlvhqzVYMVRQPTZY5975-91-27 10:22:00 Test Item Value Reference Range Interpretation Comments Hgb (test code = Hgb) 13.1 12.0-16.0 N [facility] HospitalGlwebuaTDLRVRKRFA2797-52-93 10:22:00 Test Item Value Reference Range Interpretation Comments Hct (test code = Hct) 37.1 36.0-48.0 N [facility] CenterWmejfioAWMAGGERI5505-50-89 10:22:00 Test Item Value Reference Range Interpretation Comments Phosphorus (test code = Phosphorus) 3.0 2.5-4.5 N [facility] CenterWulhbxyRMVSSAGTS3312-23-72 10:22:00 Test Item Value Reference Range Interpretation Comments Magnesium Lvl (test code = Magnesium 1.8 1.8-2.4 N Lvl) [facility] CenterKessdcxIXZPAIVTD4147-98-99 10:22:00 Test Item Value Reference Range Interpretation Comments Chloride Lvl (test code = Chloride Lvl) 107 95-109 N [facility] CenterRqijyvcWFJAQRVJH1459-15-89 10:22:00 Test Item Value Reference Range Interpretation Comments Potassium Lvl (test code = Potassium 3.0 3.5-5.1 A Lvl) [facility] CenterAcivsmmBLIPFAJKC7666-25-22 10:22:00 Test Item Value Reference Range Interpretation Comments Sodium Lvl (test code = Sodium Lvl) 141 135-145 N [facility] CenterHtaqfliZRAGMAHEB1931-01-80 10:22:00 Test Item Value Reference Range Interpretation Comments Creatinine Lvl (test code = Creatinine 0.6 0.5-1.4 N Lvl) [facility] CenterZdqnmnrOMWOQIVWM2829-63-15 10:22:00 Test Item Value Reference Range Interpretation Comments CO2 (test code = CO2) 23 24-32 L [facility] CenterXpmiwvaPRGWELABL9532-11-17 10:22:00 Test Item Value Reference Range Interpretation Comments Calcium Lvl (test code = Calcium Lvl) 7.3 8.5-10.5 L [facility] CenterNxoiwpjSWKXGLAXY8300-31-96 10:22:00 Test Item Value Reference Range Interpretation Comments Glucose Lvl (test code = Glucose Lvl) 136 [facility] CenterGstlvtvCHJJLRPGY0934-95-74 10:22:00 Test Item Value Reference Range Interpretation Comments AGAP (test code = AGAP) 14.0 10.0-20.0 N [facility] CenterWryksdeZPPVQLACY7539-69-49 10:22:00 Test Item Value Reference Range Interpretation Comments BUN (test code = BUN) 5 7-22 L [facility] HospitalGjqpzdxYSAUHQKYUW3515-47-53 10:22:00 Test Item Value Reference Range Interpretation Comments Segs (test code = Segs) 69.6 45.0-75.0 N [facility] HospitalJjhulzfPERDIWHZMT6447-21-60 10:22:00 Test Item Value Reference Range Interpretation Comments Lymphocytes (test code = Lymphocytes) 21.5 20.0-40.0 N [facility] HospitalSfjdnejAJSHUDECKN1705-24-11 10:22:00 Test Item Value Reference Range Interpretation Comments Monocytes (test code = Monocytes) 7.6 2.0-12.0 N [facility] HospitalVkngltdYVCWIKAGKB1768-34-24 10:22:00 Test Item Value Reference Range Interpretation Comments Eosinophils (test code = 1.0 See_Comment N [A utomated message] The Eosinophils) system which ge nerated this result tra nsmitted reference range : <=4.0. The reference r leo was not used to int erpret this result as normal/abnormal . [facility] HospitalBwvjmvvPHLQGOQSAP9773-41-15 10:22:00 Test Item Value Reference Range Interpretation Comments Basophils (test code = 0.3 See_Comment N [Aut omated message] The Basophils) system which ge nerated this result tra nsmitted reference range : <=1.0. The reference r leo was not used to int erpret this result as normal/abnormal . [facility] HospitalTlfumljQLVBDKEPOR0584-08-63 10:22:00 Test Item Value Reference Range Interpretation Comments Segs-Bands # (test code = Segs-Bands #) 4.8 1.5-8.1 N [facility] HospitalZialgroSZQCRBAXGC9522-96-50 10:22:00 Test Item Value Reference Range Interpretation Comments Eosinophils # (test code 0.1 See_Comment N [A utomated message] The = Eosinophils #) system ic h generated this result tra nsmitted reference range : <=0.5. The reference r leo was not used to int erpret this result as normal/abnormal . [facility] HospitalRshjegbOJNLQGDEYW3964-12-48 10:22:00 Test Item Value Reference Range Interpretation Comments Lymphocytes # (test code = Lymphocytes 1.5 1.0-5.5 N #) [facility] HospitalWnzcyhfFBKGPMTETS5306-82-70 10:22:00 Test Item Value Reference Range Interpretation Comments Monocytes # (test code 0.5 See_Comment N [Aut omated message] The = Monocytes #) system which generated this result tra nsmitted reference range : <=0.8. The reference r leo was not used to int erpret this result as normal/abnormal . [facility] HospitalPvgiruxQZMIPQUCPY7585-98-70 10:22:00 Test Item Value Reference Range Interpretation Comments Basophils # (test code 0.0 See_Comment N [Aut omated message] The = Basophils #) system which generated this result tra nsmitted reference range : <=0.2. The reference r leo was not used to int erpret this result as normal/abnormal . [facility] HospitalIqsvzwwFGVFZFBEPK2631-08-87 10:22:00 Test Item Value Reference Range Interpretation Comments MPV (test code = MPV) 11.0 7.4-10.4 H [facility] HospitalFllcdhmZKJQKXEFOX1617-33-53 10:22:00 Test Item Value Reference Range Interpretation Comments Platelet (test code = Platelet) 161 133-450 N [facility] HospitalDmlixslUXAGHYHKLB6919-53-58 10:22:00 Test Item Value Reference Range Interpretation Comments MCH (test code = MCH) 29.6 pg 27.0-31.0 N [facility] HospitalXnyseplVSCNAMQTMJ7891-15-57 10:22:00 Test Item Value Reference Range Interpretation Comments MCHC (test code = MCHC) 35.4 32.0-36.0 N [facility] HospitalAguktynBBDDWSKDEN4525-79-65 10:22:00 Test Item Value Reference Range Interpretation Comments RDW (test code = RDW) 14.1 11.5-14.5 N [facility] HospitalFgloryxYWPQGIUANW5811-80-87 10:22:00 Test Item Value Reference Range Interpretation Comments WBC (test code = WBC) 6.8 3.7-10.4 N [facility] HospitalWgpxctzLDATQBPUQP9702-72-86 10:22:00 Test Item Value Reference Range Interpretation Comments MCV (test code = MCV) 83.5 81.0-99.0 N [facility] HospitalUjcddjjWYLGNMPSJE5329-26-47 10:22:00 Test Item Value Reference Range Interpretation Comments RBC (test code = RBC) 4.44 4.20-5.40 N [facility] HospitalGkmifnpMVKEDJHLFC9462-48-74 10:22:00 Test Item Value Reference Range Interpretation Comments Hgb (test code = Hgb) 13.1 12.0-16.0 N [facility] HospitalSmdqxngBNRXIKNAPD2586-37-22 10:22:00 Test Item Value Reference Range Interpretation Comments Hct (test code = Hct) 37.1 36.0-48.0 N [facility] CenterDwvyfbuJCASTBUMR0413-37-25 10:22:00 Test Item Value Reference Range Interpretation Comments Phosphorus (test code = Phosphorus) 3.0 2.5-4.5 N [facility] CenterHnivdssWAVXHLVXE9647-27-06 10:22:00 Test Item Value Reference Range Interpretation Comments Magnesium Lvl (test code = Magnesium 1.8 1.8-2.4 N Lvl) [facility] CenterLpgbyauOMUAXGGPJ0145-45-63 10:22:00 Test Item Value Reference Range Interpretation Comments Chloride Lvl (test code = Chloride Lvl) 107 95-109 N [facility] CenterOtojyszNKZNGKLNY8737-76-96 10:22:00 Test Item Value Reference Range Interpretation Comments Potassium Lvl (test code = Potassium 3.0 3.5-5.1 A Lvl) [facility] CenterVcwwioxEWGCGYUEU0324-26-76 10:22:00 Test Item Value Reference Range Interpretation Comments Sodium Lvl (test code = Sodium Lvl) 141 135-145 N [facility] CenterQsvenyuMRMMUFDEW7050-17-71 10:22:00 Test Item Value Reference Range Interpretation Comments Creatinine Lvl (test code = Creatinine 0.6 0.5-1.4 N Lvl) [facility] CenterDptuklaNOXWUJBIH4051-13-79 10:22:00 Test Item Value Reference Range Interpretation Comments CO2 (test code = CO2) 23 24-32 L [facility] CenterFlaipvtYJMNCZREA5177-44-23 10:22:00 Test Item Value Reference Range Interpretation Comments Calcium Lvl (test code = Calcium Lvl) 7.3 8.5-10.5 L [facility] CenterYjcmdhaZKCIVQFCA1610-85-43 10:22:00 Test Item Value Reference Range Interpretation Comments Glucose Lvl (test code = Glucose Lvl) 136 [facility] CenterFjgbscnFIXZUJILM9549-21-66 10:22:00 Test Item Value Reference Range Interpretation Comments AGAP (test code = AGAP) 14.0 10.0-20.0 N [facility] CenterPnpykvwGIZTFLBAL8912-64-70 10:22:00 Test Item Value Reference Range Interpretation Comments BUN (test code = BUN) 5 7-22 L [facility] HospitalIwxpjsgNNOYZHBWXK9218-11-68 10:22:00 Test Item Value Reference Range Interpretation Comments Segs (test code = Segs) 69.6 45.0-75.0 N [facility] HospitalDazujtuXZXNKQYHHJ4552-13-38 10:22:00 Test Item Value Reference Range Interpretation Comments Lymphocytes (test code = Lymphocytes) 21.5 20.0-40.0 N [facility] HospitalYnswweiYYAJQMNSYK8610-72-89 10:22:00 Test Item Value Reference Range Interpretation Comments Monocytes (test code = Monocytes) 7.6 2.0-12.0 N [facility] HospitalIftyuqdSSJCZHAKJU7374-46-00 10:22:00 Test Item Value Reference Range Interpretation Comments Eosinophils (test code = 1.0 See_Comment N [A utomated message] The Eosinophils) system which ge nerated this result tra nsmitted reference range : <=4.0. The reference r leo was not used to int erpret this result as normal/abnormal . [facility] HospitalJnlccgdLFBBUCMBPF2623-77-91 10:22:00 Test Item Value Reference Range Interpretation Comments Basophils (test code = 0.3 See_Comment N [Aut omated message] The Basophils) system which ge nerated this result tra nsmitted reference range : <=1.0. The reference r leo was not used to int erpret this result as normal/abnormal . [facility] HospitalMcevenaJJZPRCNOCX6179-60-44 10:22:00 Test Item Value Reference Range Interpretation Comments Segs-Bands # (test code = Segs-Bands #) 4.8 1.5-8.1 N [facility] HospitalAazxmmmVJMZLZNQAQ1310-85-49 10:22:00 Test Item Value Reference Range Interpretation Comments Eosinophils # (test code 0.1 See_Comment N [A utomated message] The = Eosinophils #) system [facility] h generated this result tra nsmitted reference range : <=0.5. The reference r leo was not used to int erpret this result as normal/abnormal . [facility] HospitalWksgeenMFSENYZMZP2359-75-16 10:22:00 Test Item Value Reference Range Interpretation Comments Lymphocytes # (test code = Lymphocytes 1.5 1.0-5.5 N #) [facility] HospitalIajczwhCKVQHVFXFK7599-87-15 10:22:00 Test Item Value Reference Range Interpretation Comments Monocytes # (test code 0.5 See_Comment N [Aut omated message] The = Monocytes #) system which generated this result tra nsmitted reference range : <=0.8. The reference r leo was not used to int erpret this result as normal/abnormal . [facility] HospitalDmrhcooUVCRIYNGIV8803-19-54 10:22:00 Test Item Value Reference Range Interpretation Comments Basophils # (test code 0.0 See_Comment N [Aut omated message] The = Basophils #) system which generated this result tra nsmitted reference range : <=0.2. The reference r leo was not used to int erpret this result as normal/abnormal . [facility] HospitalLefipqhOIMYIOAPUY6877-70-42 10:22:00 Test Item Value Reference Range Interpretation Comments MPV (test code = MPV) 11.0 7.4-10.4 H [facility] HospitalYtpfuteCGZNYAVEIT9316-63-11 10:22:00 Test Item Value Reference Range Interpretation Comments Platelet (test code = Platelet) 161 133-450 N [facility] HospitalTyftgstWVTXXMKLFL5985-20-96 10:22:00 Test Item Value Reference Range Interpretation Comments MCH (test code = MCH) 29.6 pg 27.0-31.0 N [facility] HospitalYeneaotWKSOPNQFVK8273-99-09 10:22:00 Test Item Value Reference Range Interpretation Comments MCHC (test code = MCHC) 35.4 32.0-36.0 N [facility] HospitalKguxkamOOFDAPTABR0006-38-08 10:22:00 Test Item Value Reference Range Interpretation Comments RDW (test code = RDW) 14.1 11.5-14.5 N [facility] HospitalEcvhnrpEFDTMXHWSE1496-38-99 10:22:00 Test Item Value Reference Range Interpretation Comments WBC (test code = WBC) 6.8 3.7-10.4 N [facility] HospitalVkitbijSZYUGRFIVU7006-71-07 10:22:00 Test Item Value Reference Range Interpretation Comments MCV (test code = MCV) 83.5 81.0-99.0 N [facility] HospitalFuyzdnvLFDQIXKYLZ4192-42-42 10:22:00 Test Item Value Reference Range Interpretation Comments RBC (test code = RBC) 4.44 4.20-5.40 N [facility] HospitalHagrdooGCOOTJNXPF4086-94-43 10:22:00 Test Item Value Reference Range Interpretation Comments Hgb (test code = Hgb) 13.1 12.0-16.0 N [facility] HospitalUjfxscxCEOTBMOWGQ5894-44-19 10:22:00 Test Item Value Reference Range Interpretation Comments Hct (test code = Hct) 37.1 36.0-48.0 N [facility] CenterCdowszhQKVKJRVDP3292-31-28 10:22:00 Test Item Value Reference Range Interpretation Comments Phosphorus (test code = Phosphorus) 3.0 2.5-4.5 N [facility] CenterCeoxschQYJNPMWNP6465-79-25 10:22:00 Test Item Value Reference Range Interpretation Comments Magnesium Lvl (test code = Magnesium 1.8 1.8-2.4 N Lvl) [facility] CenterIifbanrEWNEYMETX5964-32-66 10:22:00 Test Item Value Reference Range Interpretation Comments Chloride Lvl (test code = Chloride Lvl) 107 95-109 N [facility] CenterViuwantFOGQBBECV6101-54-71 10:22:00 Test Item Value Reference Range Interpretation Comments Potassium Lvl (test code = Potassium 3.0 3.5-5.1 A Lvl) [facility] CenterPvfbdovNIHNJCOEF5522-38-39 10:22:00 Test Item Value Reference Range Interpretation Comments Sodium Lvl (test code = Sodium Lvl) 141 135-145 N [facility] CenterQuoppbzMDBJTPDSF5640-60-74 10:22:00 Test Item Value Reference Range Interpretation Comments Creatinine Lvl (test code = Creatinine 0.6 0.5-1.4 N Lvl) [facility] CenterVomasalUKDVHNUKW8174-05-77 10:22:00 Test Item Value Reference Range Interpretation Comments CO2 (test code = CO2) 23 24-32 L [facility] CenterHtsckdtRISSXCKAQ9595-26-82 10:22:00 Test Item Value Reference Range Interpretation Comments Calcium Lvl (test code = Calcium Lvl) 7.3 8.5-10.5 L [facility] CenterKauxlntIIMYEUQJT7860-27-31 10:22:00 Test Item Value Reference Range Interpretation Comments Glucose Lvl (test code = Glucose Lvl) 136 [facility] CenterQxeezwjMXSXZRZLL3476-80-16 10:22:00 Test Item Value Reference Range Interpretation Comments AGAP (test code = AGAP) 14.0 10.0-20.0 N [facility] CenterZbvcrmyZUEQKPYHC4308-87-30 10:22:00 Test Item Value Reference Range Interpretation Comments BUN (test code = BUN) 5 7-22 L [facility] HospitalAbdsjhyIXQOQJBSIM9312-69-74 10:22:00 Test Item Value Reference Range Interpretation Comments Segs (test code = Segs) 69.6 45.0-75.0 N [facility] HospitalJvnbrriBPLBEZICLA3801-12-84 10:22:00 Test Item Value Reference Range Interpretation Comments Lymphocytes (test code = Lymphocytes) 21.5 20.0-40.0 N [facility] HospitalGsnyufoTFXQSTCMWC4718-82-06 10:22:00 Test Item Value Reference Range Interpretation Comments Monocytes (test code = Monocytes) 7.6 2.0-12.0 N [facility] HospitalIdwbddnQAUHHFJPBM8166-41-27 10:22:00 Test Item Value Reference Range Interpretation Comments Eosinophils (test code = 1.0 See_Comment N [A utomated message] The Eosinophils) system which ge nerated this result tra nsmitted reference range : <=4.0. The reference r leo was not used to int erpret this result as normal/abnormal . [facility] HospitalEiokplaXHWIYSOHFS1017-77-01 10:22:00 Test Item Value Reference Range Interpretation Comments Basophils (test code = 0.3 See_Comment N [Aut omated message] The Basophils) system which ge nerated this result tra nsmitted reference range : <=1.0. The reference r leo was not used to int erpret this result as normal/abnormal . [facility] HospitalIpjkkrlXWXDGHNPJN9400-89-89 10:22:00 Test Item Value Reference Range Interpretation Comments Segs-Bands # (test code = Segs-Bands #) 4.8 1.5-8.1 N [facility] HospitalFkdciqsDQGSQRGNGL9524-47-31 10:22:00 Test Item Value Reference Range Interpretation Comments Eosinophils # (test code 0.1 See_Comment N [A utomated message] The = Eosinophils #) system whic h generated this result tra nsmitted reference range : <=0.5. The reference r leo was not used to int erpret this result as normal/abnormal . [facility] HospitalTrfznqnYSSDAJHMDW5600-47-00 10:22:00 Test Item Value Reference Range Interpretation Comments Lymphocytes # (test code = Lymphocytes 1.5 1.0-5.5 N #) [facility] HospitalDvgsthdKNHSQFZEYI3387-80-66 10:22:00 Test Item Value Reference Range Interpretation Comments Monocytes # (test code 0.5 See_Comment N [Aut omated message] The = Monocytes #) system which generated this result tra nsmitted reference range : <=0.8. The reference r leo was not used to int erpret this result as normal/abnormal . [facility] HospitalHbvvboiFGJEZUSNKY1388-24-63 10:22:00 Test Item Value Reference Range Interpretation Comments Basophils # (test code 0.0 See_Comment N [Aut omated message] The = Basophils #) system which generated this result tra nsmitted reference range : <=0.2. The reference r leo was not used to int erpret this result as normal/abnormal . [facility] HospitalCfkuecuKJOEELVEGB9933-25-07 10:22:00 Test Item Value Reference Range Interpretation Comments MPV (test code = MPV) 11.0 7.4-10.4 H [facility] HospitalQjjuwxpOXWBBGMRSR9334-57-56 10:22:00 Test Item Value Reference Range Interpretation Comments Platelet (test code = Platelet) 161 133-450 N [facility] HospitalKfmtbhkRECYWTDYBL1198-60-29 10:22:00 Test Item Value Reference Range Interpretation Comments MCH (test code = MCH) 29.6 pg 27.0-31.0 N [facility] HospitalRkmqdfdAUKEPYPORF0645-69-01 10:22:00 Test Item Value Reference Range Interpretation Comments MCHC (test code = MCHC) 35.4 32.0-36.0 N [facility] HospitalNwbcynvSUNVGMLIZP8255-81-66 10:22:00 Test Item Value Reference Range Interpretation Comments RDW (test code = RDW) 14.1 11.5-14.5 N [facility] HospitalIflnmfoBNAXVCDATK6389-88-72 10:22:00 Test Item Value Reference Range Interpretation Comments WBC (test code = WBC) 6.8 3.7-10.4 N [facility] HospitalVkpeuzeQRBFSSVJBW1436-03-02 10:22:00 Test Item Value Reference Range Interpretation Comments MCV (test code = MCV) 83.5 81.0-99.0 N [facility]XrldwleLQRSKZRJTE6438-14-23 10:22:00 Test Item Value Reference Range Interpretation Comments RBC (test code = RBC) 4.44 4.20-5.40 N [facility] HospitalHfcrazbREIMQQNEXF2122-89-42 10:22:00 Test Item Value Reference Range Interpretation Comments Hgb (test code = Hgb) 13.1 12.0-16.0 N [facility] HospitalIdpadkmJPIEHKUTYT6609-79-80 10:22:00 Test Item Value Reference Range Interpretation Comments Hct (test code = Hct) 37.1 36.0-48.0 N [facility] GLUCOSE KHYVYNP3999-74-08 02:20:00 Test Item Value Reference Range Interpretation Comments Comment1 (test code = Comment1) Notify RN/ [facility] GLUCOSE XAVPDTC7115-77-41 02:20:00 Test Item Value Reference Range Interpretation Comments Gluc POC Lifscn (test code = Gluc POC 332 65-110 H Lifscn) [facility] GLUCOSE FZYRAME4599-09-81 02:20:00 Test Item Value Reference Range Interpretation Comments Comment1 (test code = Comment1) Notify RN/ [facility] GLUCOSE PJESFFG7800-15-89 02:20:00 Test Item Value Reference Range Interpretation Comments Gluc POC Lifscn (test code = Gluc POC 332 65-110 H Lifscn) [facility] GLUCOSE XPMUOXQ7051-60-79 02:20:00 Test Item Value Reference Range Interpretation Comments Comment1 (test code = Comment1) Notify RN/ [facility] GLUCOSE YDLCVFR7416-33-16 02:20:00 Test Item Value Reference Range Interpretation Comments Gluc POC Lifscn (test code = Gluc POC 332 65-110 H Lifscn) [facility] GLUCOSE IKJMHUL6473-45-43 02:20:00 Test Item Value Reference Range Interpretation Comments Comment1 (test code = Comment1) Notify RN/ [facility] GLUCOSE PJUFSZZ7077-04-58 02:20:00 Test Item Value Reference Range Interpretation Comments Gluc POC Lifscn (test code = Gluc POC 332 65-110 H Lifscn) [facility]LympztsXTRLKIYPO3548-70-73 09:47:00 Test Item Value Reference Range Interpretation Comments Phosphorus (test code = Phosphorus) 2.5 2.5-4.5 N [facility] CenterQwplzvfCAHKUJNSW7584-09-08 09:47:00 Test Item Value Reference Range Interpretation Comments Glucose Lvl (test code = Glucose Lvl) 201 [facility] CenterThcciulUTSHSQUJE0827-44-21 09:47:00 Test Item Value Reference Range Interpretation Comments BUN (test code = BUN) 7 7-22 N [facility] CenterPlqtllrDGXKEOBEX6422-73-73 09:47:00 Test Item Value Reference Range Interpretation Comments CO2 (test code = CO2) 19 24-32 L [facility] CenterElykqusNGRDQYSFH0619-32-24 09:47:00 Test Item Value Reference Range Interpretation Comments Creatinine Lvl (test code = Creatinine 0.3 0.5-1.4 L Lvl) [facility] CenterSxfeiaoYPZZVCDJR0384-64-22 09:47:00 Test Item Value Reference Range Interpretation Comments Sodium Lvl (test code = Sodium Lvl) 137 135-145 N [facility] CenterJwchtwoGBVWAUJAX8233-01-13 09:47:00 Test Item Value Reference Range Interpretation Comments Chloride Lvl (test code = Chloride Lvl) 103 95-109 N [facility] CenterDjklkyfYPLDKXYTE2900-44-71 09:47:00 Test Item Value Reference Range Interpretation Comments Potassium Lvl (test code = Potassium 3.6 3.5-5.1 N Lvl) [facility] CenterBbjvphhKWSSWFTHZ7434-45-31 09:47:00 Test Item Value Reference Range Interpretation Comments Calcium Lvl (test code = Calcium Lvl) 7.9 8.5-10.5 L [facility] CenterWtdevzhADEYCRQYU1740-23-04 09:47:00 Test Item Value Reference Range Interpretation Comments AGAP (test code = AGAP) 18.6 10.0-20.0 N [facility] CenterYadycfzDMGWNSDPJ2105-43-47 09:47:00 Test Item Value Reference Range Interpretation Comments Magnesium Lvl (test code = Magnesium 1.6 1.8-2.4 L Lvl) [facility] HospitalArpjvlxHSZSUSAUXN0300-86-35 09:47:00 Test Item Value Reference Range Interpretation Comments Basophils # (test code 0.0 See_Comment N [Aut omated message] The = Basophils #) system which generated this result tra nsmitted reference range : <=0.2. The reference r leo was not used to int erpret this result as normal/abnormal . [facility] HospitalVdvkfevJZHNSRLACQ2820-24-08 09:47:00 Test Item Value Reference Range Interpretation Comments Eosinophils (test code = 0.4 See_Comment N [A utomated message] The Eosinophils) system which ge nerated this result tra nsmitted reference range : <=4.0. The reference r leo was not used to int erpret this result as normal/abnormal . [facility] HospitalPmhxuwgARXNAMQJYV6006-34-61 09:47:00 Test Item Value Reference Range Interpretation Comments Basophils (test code = 0.5 See_Comment N [Aut omated message] The Basophils) system which ge nerated this result tra nsmitted reference range : <=1.0. The reference r leo was not used to int erpret this result as normal/abnormal . [facility] HospitalAqvnetcJKCSVBGKTP2255-27-01 09:47:00 Test Item Value Reference Range Interpretation Comments Segs-Bands # (test code = Segs-Bands #) 5.9 1.5-8.1 N [facility] HospitalDrxycmfGUWJRORROU7497-79-66 09:47:00 Test Item Value Reference Range Interpretation Comments Lymphocytes # (test code = Lymphocytes 1.2 1.0-5.5 N #) [facility] HospitalGbxzekaCATAHEMEDU1067-70-71 09:47:00 Test Item Value Reference Range Interpretation Comments Monocytes # (test code 0.5 See_Comment N [Aut omated message] The = Monocytes #) system which generated this result tra nsmitted reference range : <=0.8. The reference r leo was not used to int erpret this result as normal/abnormal . [facility] HospitalXtohvpbKGKWSIBDZH8453-39-42 09:47:00 Test Item Value Reference Range Interpretation Comments Eosinophils # (test code 0.0 See_Comment N [A utomated message] The = Eosinophils #) system whic h generated this result tra nsmitted reference range : <=0.5. The reference r leo was not used to int erpret this result as normal/abnormal . [facility] HospitalPkwxbqsVTCCWEBCDG7754-90-74 09:47:00 Test Item Value Reference Range Interpretation Comments Segs (test code = Segs) 76.9 45.0-75.0 H [facility] HospitalJbupeikGSIWVMTYWZ9539-69-23 09:47:00 Test Item Value Reference Range Interpretation Comments Lymphocytes (test code = Lymphocytes) 15.9 20.0-40.0 L [facility] HospitalOlswhdrTDUOTQMBGP6271-72-91 09:47:00 Test Item Value Reference Range Interpretation Comments Monocytes (test code = Monocytes) 6.3 2.0-12.0 N [facility] HospitalMkogbrhEBFJJBLJMJ4216-31-72 09:47:00 Test Item Value Reference Range Interpretation Comments MCV (test code = MCV) 82.8 81.0-99.0 N [facility] HospitalWkatvpiAEIRIQYVON7591-56-85 09:47:00 Test Item Value Reference Range Interpretation Comments Hct (test code = Hct) 39.7 36.0-48.0 N [facility] HospitalBnhaskkGBFZBYXKAK4931-47-99 09:47:00 Test Item Value Reference Range Interpretation Comments MCH (test code = MCH) 29.1 pg 27.0-31.0 N [facility] HospitalCglrfdxVEAWDFQCGC1712-12-35 09:47:00 Test Item Value Reference Range Interpretation Comments Hgb (test code = Hgb) 14.0 12.0-16.0 N [facility] HospitalIerrdspJOFNSHYMWL2127-19-27 09:47:00 Test Item Value Reference Range Interpretation Comments MCHC (test code = MCHC) 35.2 32.0-36.0 N [facility] HospitalQkbngtaAXZMHMBYPK3777-43-80 09:47:00 Test Item Value Reference Range Interpretation Comments RDW (test code = RDW) 13.9 11.5-14.5 N [facility] HospitalJxxgmbuHNMCDUIDGD0136-10-98 09:47:00 Test Item Value Reference Range Interpretation Comments Platelet (test code = Platelet) 160 133-450 N [facility] HospitalOhkcxbeADAIOCHGOP9447-49-84 09:47:00 Test Item Value Reference Range Interpretation Comments MPV (test code = MPV) 11.9 7.4-10.4 H [facility] HospitalTjeueppWUREWIAJFE4519-82-75 09:47:00 Test Item Value Reference Range Interpretation Comments WBC (test code = WBC) 7.7 3.7-10.4 N [facility] HospitalShohsrhAXESRULUKR7487-03-63 09:47:00 Test Item Value Reference Range Interpretation Comments RBC (test code = RBC) 4.80 4.20-5.40 N [facility] CenterYhdlhjgINYVDVGBK9708-15-87 09:47:00 Test Item Value Reference Range Interpretation Comments Phosphorus (test code = Phosphorus) 2.5 2.5-4.5 N [facility] CenterVrctwhdSUXMMLGCD5863-50-15 09:47:00 Test Item Value Reference Range Interpretation Comments Glucose Lvl (test code = Glucose Lvl) 201 [facility] CenterMmqiidnJOORIEGZT1427-40-75 09:47:00 Test Item Value Reference Range Interpretation Comments BUN (test code = BUN) 7 7-22 N [facility] CenterYavkzaaSNCHYTQNK4260-14-77 09:47:00 Test Item Value Reference Range Interpretation Comments CO2 (test code = CO2) 19 24-32 L [facility] CenterXcjiweoUWYDASKLM3121-82-05 09:47:00 Test Item Value Reference Range Interpretation Comments Creatinine Lvl (test code = Creatinine 0.3 0.5-1.4 L Lvl) [facility] CenterQyabnxtQNSCZYGTM9060-83-91 09:47:00 Test Item Value Reference Range Interpretation Comments Sodium Lvl (test code = Sodium Lvl) 137 135-145 N [facility] CenterLhdaqprYQWGRSDXI2599-43-45 09:47:00 Test Item Value Reference Range Interpretation Comments Chloride Lvl (test code = Chloride Lvl) 103 95-109 N [facility] CenterJlkqabkLSUDGIHVB6711-60-18 09:47:00 Test Item Value Reference Range Interpretation Comments Potassium Lvl (test code = Potassium 3.6 3.5-5.1 N Lvl) [facility] CenterZwxfjnnZYPCVKNRN5925-59-36 09:47:00 Test Item Value Reference Range Interpretation Comments Calcium Lvl (test code = Calcium Lvl) 7.9 8.5-10.5 L [facility] CenterAbffmwpJBBWRTBEZ2238-47-44 09:47:00 Test Item Value Reference Range Interpretation Comments AGAP (test code = AGAP) 18.6 10.0-20.0 N [facility] CenterTsnpzbuLZVAMNUSA4786-24-75 09:47:00 Test Item Value Reference Range Interpretation Comments Magnesium Lvl (test code = Magnesium 1.6 1.8-2.4 L Lvl) [facility] HospitalXqhuoixRYKSFYHEXT1830-95-06 09:47:00 Test Item Value Reference Range Interpretation Comments Basophils # (test code 0.0 See_Comment N [Aut omated message] The = Basophils #) system which generated this result tra nsmitted reference range : <=0.2. The reference r leo was not used to int erpret this result as normal/abnormal . [facility] HospitalAxptfnhDXSNZUNDVF1624-70-23 09:47:00 Test Item Value Reference Range Interpretation Comments Eosinophils (test code = 0.4 See_Comment N [A utomated message] The Eosinophils) system which ge nerated this result tra nsmitted reference range : <=4.0. The reference r leo was not used to int erpret this result as normal/abnormal . [facility] HospitalIdqzvwvDPZMTUEURU2612-77-00 09:47:00 Test Item Value Reference Range Interpretation Comments Basophils (test code = 0.5 See_Comment N [Aut omated message] The Basophils) system which ge nerated this result tra nsmitted reference range : <=1.0. The reference r leo was not used to int erpret this result as normal/abnormal . [facility] HospitalZiijiazJHJSAYHJVF9441-22-40 09:47:00 Test Item Value Reference Range Interpretation Comments Segs-Bands # (test code = Segs-Bands #) 5.9 1.5-8.1 N [facility] HospitalGbxgulrRDVYPYDQUI0059-04-33 09:47:00 Test Item Value Reference Range Interpretation Comments Lymphocytes # (test code = Lymphocytes 1.2 1.0-5.5 N #) [facility] HospitalQupzbjeQHSOHHVTMO4590-87-84 09:47:00 Test Item Value Reference Range Interpretation Comments Monocytes # (test code 0.5 See_Comment N [Aut omated message] The = Monocytes #) system which generated this result tra nsmitted reference range : <=0.8. The reference r leo was not used to int erpret this result as normal/abnormal . [facility] HospitalWewzuzyDDZDUEKJLQ8163-20-82 09:47:00 Test Item Value Reference Range Interpretation Comments Eosinophils # (test code 0.0 See_Comment N [A utomated message] The = Eosinophils #) system whic h generated this result tra nsmitted reference range : <=0.5. The reference r leo was not used to int erpret this result as normal/abnormal . [facility] HospitalZybhbztTMVODODBKI4228-91-70 09:47:00 Test Item Value Reference Range Interpretation Comments Segs (test code = Segs) 76.9 45.0-75.0 H [facility] HospitalIrgrfftVPPGAMOEGY8903-34-81 09:47:00 Test Item Value Reference Range Interpretation Comments Lymphocytes (test code = Lymphocytes) 15.9 20.0-40.0 L [facility] HospitalFjdpbvqVFAXAHMLZX6841-14-06 09:47:00 Test Item Value Reference Range Interpretation Comments Monocytes (test code = Monocytes) 6.3 2.0-12.0 N [facility] HospitalCvbusflKVJKMKBSBD6450-96-01 09:47:00 Test Item Value Reference Range Interpretation Comments MCV (test code = MCV) 82.8 81.0-99.0 N [facility] HospitalQbgpkmqZJDZLGSCYW6158-87-28 09:47:00 Test Item Value Reference Range Interpretation Comments Hct (test code = Hct) 39.7 36.0-48.0 N [facility] HospitalWiaqiuwFILXQSPTOH0720-17-33 09:47:00 Test Item Value Reference Range Interpretation Comments MCH (test code = MCH) 29.1 pg 27.0-31.0 N [facility] HospitalZraxfjlIUDMYZPCBX9604-78-50 09:47:00 Test Item Value Reference Range Interpretation Comments Hgb (test code = Hgb) 14.0 12.0-16.0 N [facility] HospitalZrtrsxnJANXSOSHWY6093-54-04 09:47:00 Test Item Value Reference Range Interpretation Comments MCHC (test code = MCHC) 35.2 32.0-36.0 N [facility] HospitalQqwgyyiZWEIRVTEZI0298-09-76 09:47:00 Test Item Value Reference Range Interpretation Comments RDW (test code = RDW) 13.9 11.5-14.5 N [facility] HospitalQaaayxoUAAZFVGHHY6279-34-04 09:47:00 Test Item Value Reference Range Interpretation Comments Platelet (test code = Platelet) 160 133-450 N [facility] HospitalOaeelorCGIXUTSGVA0849-72-75 09:47:00 Test Item Value Reference Range Interpretation Comments MPV (test code = MPV) 11.9 7.4-10.4 H [facility] HospitalSplfvqvWUYCWWMOAI3944-45-10 09:47:00 Test Item Value Reference Range Interpretation Comments WBC (test code = WBC) 7.7 3.7-10.4 N [facility] HospitalGgrkaaxOENJVYQBSV7636-99-63 09:47:00 Test Item Value Reference Range Interpretation Comments RBC (test code = RBC) 4.80 4.20-5.40 N [facility] CenterFvzqoatHGXLYNIPD0242-41-46 09:47:00 Test Item Value Reference Range Interpretation Comments Phosphorus (test code = Phosphorus) 2.5 2.5-4.5 N [facility] CenterFthbccoWOMFQAFOR5832-84-42 09:47:00 Test Item Value Reference Range Interpretation Comments Glucose Lvl (test code = Glucose Lvl) 201 [facility] CenterKhjgocqAEYGAEBCA2904-10-42 09:47:00 Test Item Value Reference Range Interpretation Comments BUN (test code = BUN) 7 7-22 N [facility] CenterAlmmsjeUFJJMKDMG7195-63-06 09:47:00 Test Item Value Reference Range Interpretation Comments CO2 (test code = CO2) 19 24-32 L [facility] CenterNwjqmjaYNZRTMOKQ0661-94-25 09:47:00 Test Item Value Reference Range Interpretation Comments Creatinine Lvl (test code = Creatinine 0.3 0.5-1.4 L Lvl) [facility] CenterLidtrwxCERXLJUSC9803-26-14 09:47:00 Test Item Value Reference Range Interpretation Comments Sodium Lvl (test code = Sodium Lvl) 137 135-145 N [facility] CenterOpskhkrWXPQUKDBS9143-07-73 09:47:00 Test Item Value Reference Range Interpretation Comments Chloride Lvl (test code = Chloride Lvl) 103 95-109 N [facility] CenterLtgdcwlDAQVZPAVJ9259-45-54 09:47:00 Test Item Value Reference Range Interpretation Comments Potassium Lvl (test code = Potassium 3.6 3.5-5.1 N Lvl) [facility] CenterDbptteeUVAQBIBLR3121-71-88 09:47:00 Test Item Value Reference Range Interpretation Comments Calcium Lvl (test code = Calcium Lvl) 7.9 8.5-10.5 L [facility] CenterMjaysuiPSWWPQKDK9098-23-86 09:47:00 Test Item Value Reference Range Interpretation Comments AGAP (test code = AGAP) 18.6 10.0-20.0 N [facility] CenterLwcviceQNKFGYXQB2564-98-47 09:47:00 Test Item Value Reference Range Interpretation Comments Magnesium Lvl (test code = Magnesium 1.6 1.8-2.4 L Lvl) [facility] HospitalPwmutgxEXKTRGXFBI8371-83-54 09:47:00 Test Item Value Reference Range Interpretation Comments Basophils # (test code 0.0 See_Comment N [Aut omated message] The = Basophils #) system which generated this result tra nsmitted reference range : <=0.2. The reference r leo was not used to int erpret this result as normal/abnormal . [facility] HospitalMrdqnzvOKSJHBTPXG7543-13-75 09:47:00 Test Item Value Reference Range Interpretation Comments Eosinophils (test code = 0.4 See_Comment N [A utomated message] The Eosinophils) system which ge nerated this result tra nsmitted reference range : <=4.0. The reference r leo was not used to int erpret this result as normal/abnormal . [facility] HospitalIyqgwlrTXZVLVULBW9044-01-88 09:47:00 Test Item Value Reference Range Interpretation Comments Basophils (test code = 0.5 See_Comment N [Aut omated message] The Basophils) system which ge nerated this result tra nsmitted reference range : <=1.0. The reference r leo was not used to int erpret this result as normal/abnormal . [facility] HospitalCkylssiBUKDRTOSCP6984-22-74 09:47:00 Test Item Value Reference Range Interpretation Comments Segs-Bands # (test code = Segs-Bands #) 5.9 1.5-8.1 N [facility] HospitalWdoquioHPIZGKXSOT4655-08-03 09:47:00 Test Item Value Reference Range Interpretation Comments Lymphocytes # (test code = Lymphocytes 1.2 1.0-5.5 N #) [facility] HospitalWrzvfitMXOBXVDVKC2021-14-11 09:47:00 Test Item Value Reference Range Interpretation Comments Monocytes # (test code 0.5 See_Comment N [Aut omated message] The = Monocytes #) system which generated this result tra nsmitted reference range : <=0.8. The reference r leo was not used to int erpret this result as normal/abnormal . [facility] HospitalDaybzzkPRZTGNBWCX9886-02-56 09:47:00 Test Item Value Reference Range Interpretation Comments Eosinophils # (test code 0.0 See_Comment N [A utomated message] The = Eosinophils #) system whic h generated this result tra nsmitted reference range : <=0.5. The reference r leo was not used to int erpret this result as normal/abnormal . [facility] HospitalPrdcrymCBFREJYRIG3859-47-53 09:47:00 Test Item Value Reference Range Interpretation Comments Segs (test code = Segs) 76.9 45.0-75.0 H [facility] HospitalWiwrezaHOINUDFNCV1414-33-30 09:47:00 Test Item Value Reference Range Interpretation Comments Lymphocytes (test code = Lymphocytes) 15.9 20.0-40.0 L [facility] HospitalSglrxshHLFXCMSYEV3519-55-23 09:47:00 Test Item Value Reference Range Interpretation Comments Monocytes (test code = Monocytes) 6.3 2.0-12.0 N [facility] HospitalHoutgjbRLCHBKZEMP9005-31-15 09:47:00 Test Item Value Reference Range Interpretation Comments MCV (test code = MCV) 82.8 81.0-99.0 N [facility] HospitalFqmgosgNEHZEBGADR1201-16-64 09:47:00 Test Item Value Reference Range Interpretation Comments Hct (test code = Hct) 39.7 36.0-48.0 N [facility] HospitalWcviycqQMISTMHFEB3685-62-69 09:47:00 Test Item Value Reference Range Interpretation Comments MCH (test code = MCH) 29.1 pg 27.0-31.0 N [facility] HospitalWgtatmfWIKHEOSIOG6638-86-32 09:47:00 Test Item Value Reference Range Interpretation Comments Hgb (test code = Hgb) 14.0 12.0-16.0 N [facility] HospitalZaikmcuVIIDQQMEIX4887-08-22 09:47:00 Test Item Value Reference Range Interpretation Comments MCHC (test code = MCHC) 35.2 32.0-36.0 N [facility] HospitalWzyzxolRALKAKLFJM6025-58-57 09:47:00 Test Item Value Reference Range Interpretation Comments RDW (test code = RDW) 13.9 11.5-14.5 N [facility] HospitalSxceqszIYQLADLMCG8066-62-78 09:47:00 Test Item Value Reference Range Interpretation Comments Platelet (test code = Platelet) 160 133-450 N [facility] HospitalWmsgiwpQKBHVYNVNH5845-20-77 09:47:00 Test Item Value Reference Range Interpretation Comments MPV (test code = MPV) 11.9 7.4-10.4 H [facility] HospitalYpgoiszVAVXCFMVRT3224-34-10 09:47:00 Test Item Value Reference Range Interpretation Comments WBC (test code = WBC) 7.7 3.7-10.4 N [facility] HospitalMjdnvflYWCFKWRIJQ6046-14-30 09:47:00 Test Item Value Reference Range Interpretation Comments RBC (test code = RBC) 4.80 4.20-5.40 N [facility] CenterQjoawnlJTYMRNVFQ9432-22-80 09:47:00 Test Item Value Reference Range Interpretation Comments Phosphorus (test code = Phosphorus) 2.5 2.5-4.5 N [facility] CenterKmyrlizYDHRGEIQO4989-72-52 09:47:00 Test Item Value Reference Range Interpretation Comments Glucose Lvl (test code = Glucose Lvl) 201 [facility] CenterDvqwxtdRHHKLHVTP6495-03-61 09:47:00 Test Item Value Reference Range Interpretation Comments BUN (test code = BUN) 7 7-22 N [facility] CenterTbtnbxhKWYPVAXBR8525-50-70 09:47:00 Test Item Value Reference Range Interpretation Comments CO2 (test code = CO2) 19 24-32 L [facility] CenterJapaptvLEWRIKXRQ0723-34-45 09:47:00 Test Item Value Reference Range Interpretation Comments Creatinine Lvl (test code = Creatinine 0.3 0.5-1.4 L Lvl) [facility] CenterMnqedgdUIFUHCBVT1300-11-86 09:47:00 Test Item Value Reference Range Interpretation Comments Sodium Lvl (test code = Sodium Lvl) 137 135-145 N [facility] CenterRmergckEMAWMOHQT1249-17-77 09:47:00 Test Item Value Reference Range Interpretation Comments Chloride Lvl (test code = Chloride Lvl) 103 95-109 N [facility] CenterHhfuvnpRCUPKKJAP2227-38-08 09:47:00 Test Item Value Reference Range Interpretation Comments Potassium Lvl (test code = Potassium 3.6 3.5-5.1 N Lvl) [facility] CenterHjoupuoACDKQPXPA8158-73-25 09:47:00 Test Item Value Reference Range Interpretation Comments Calcium Lvl (test code = Calcium Lvl) 7.9 8.5-10.5 L [facility] CenterPpnvgmcDSMBPNPIA4876-22-85 09:47:00 Test Item Value Reference Range Interpretation Comments AGAP (test code = AGAP) 18.6 10.0-20.0 N [facility] CenterVpqphdnELXIONUQR3263-31-36 09:47:00 Test Item Value Reference Range Interpretation Comments Magnesium Lvl (test code = Magnesium 1.6 1.8-2.4 L Lvl) [facility] HospitalMortjahURSBFHMYHO2023-78-69 09:47:00 Test Item Value Reference Range Interpretation Comments Basophils # (test code 0.0 See_Comment N [Aut omated message] The = Basophils #) system which generated this result tra nsmitted reference range : <=0.2. The reference r leo was not used to int erpret this result as normal/abnormal . [facility] HospitalPqbzbohCIGGASDNVP5513-79-40 09:47:00 Test Item Value Reference Range Interpretation Comments Eosinophils (test code = 0.4 See_Comment N [A utomated message] The Eosinophils) system which ge nerated this result tra nsmitted reference range : <=4.0. The reference r leo was not used to int erpret this result as normal/abnormal . [facility] HospitalOhqxtjiNKCMDPJUAH0728-79-79 09:47:00 Test Item Value Reference Range Interpretation Comments Basophils (test code = 0.5 See_Comment N [Aut omated message] The Basophils) system which ge nerated this result tra nsmitted reference range : <=1.0. The reference r leo was not used to int erpret this result as normal/abnormal . [facility] HospitalXfooogdMYLSHQTXGF4688-26-88 09:47:00 Test Item Value Reference Range Interpretation Comments Segs-Bands # (test code = Segs-Bands #) 5.9 1.5-8.1 N [facility] HospitalXghunagJPVPZEWEXV1498-10-42 09:47:00 Test Item Value Reference Range Interpretation Comments Lymphocytes # (test code = Lymphocytes 1.2 1.0-5.5 N #) [facility] HospitalQujbduyKGJGWWJKEE1742-75-79 09:47:00 Test Item Value Reference Range Interpretation Comments Monocytes # (test code 0.5 See_Comment N [Aut omated message] The = Monocytes #) system which generated this result tra nsmitted reference range : <=0.8. The reference r leo was not used to int erpret this result as normal/abnormal . [facility] HospitalCmdmtnbCIJMMIAKNT2042-50-16 09:47:00 Test Item Value Reference Range Interpretation Comments Eosinophils # (test code 0.0 See_Comment N [A utomated message] The = Eosinophils #) system whic h generated this result tra nsmitted reference range : <=0.5. The reference r leo was not used to int erpret this result as normal/abnormal . [facility] HospitalTiwaioyAFOULMCHRG0090-84-65 09:47:00 Test Item Value Reference Range Interpretation Comments Segs (test code = Segs) 76.9 45.0-75.0 H [facility] HospitalJdijoxzVHHGGHMOQY7835-88-55 09:47:00 Test Item Value Reference Range Interpretation Comments Lymphocytes (test code = Lymphocytes) 15.9 20.0-40.0 L [facility] HospitalIwiogseTMIKKNQUVT4308-77-72 09:47:00 Test Item Value Reference Range Interpretation Comments Monocytes (test code = Monocytes) 6.3 2.0-12.0 N [facility] HospitalLjlsfjdCNVVPWUBBR9009-03-24 09:47:00 Test Item Value Reference Range Interpretation Comments MCV (test code = MCV) 82.8 81.0-99.0 N [facility] HospitalQhdikxiUYRFOABRSB1571-75-55 09:47:00 Test Item Value Reference Range Interpretation Comments Hct (test code = Hct) 39.7 36.0-48.0 N [facility] HospitalIruenqeECLEPOYMUD2208-52-19 09:47:00 Test Item Value Reference Range Interpretation Comments MCH (test code = MCH) 29.1 pg 27.0-31.0 N [facility] HospitalJjsubyoHNRUOFIGCA3244-34-70 09:47:00 Test Item Value Reference Range Interpretation Comments Hgb (test code = Hgb) 14.0 12.0-16.0 N [place] 636892-03-03 09:47:00 Test Item Value Reference Range Interpretation Comments MCHC (test code = MCHC) 35.2 32.0-36.0 N [facility] HospitalYbtrgusHQDAEBDDST2884-10-79 09:47:00 Test Item Value Reference Range Interpretation Comments RDW (test code = RDW) 13.9 11.5-14.5 N [facility] HospitalCkcjolqTGHDPAPROU1671-45-95 09:47:00 Test Item Value Reference Range Interpretation Comments Platelet (test code = Platelet) 160 133-450 N [facility] HospitalWxmchalCULLDAENNP6359-45-16 09:47:00 Test Item Value Reference Range Interpretation Comments MPV (test code = MPV) 11.9 7.4-10.4 H [facility] HospitalJxxzhrvCRAYMEXSKZ3957-63-90 09:47:00 Test Item Value Reference Range Interpretation Comments WBC (test code = WBC) 7.7 3.7-10.4 N [facility] HospitalVdwipgjXHEDVFRCAQ7252-87-52 09:47:00 Test Item Value Reference Range Interpretation Comments RBC (test code = RBC) 4.80 4.20-5.40 N [facility] CenterQrqwrxmDREMYEVDG2135-27-70 10:28:00 Test Item Value Reference Range Interpretation Comments Phosphorus (test code = Phosphorus) 2.6 2.5-4.5 N [facility] CenterDeesgjdVSQGJUFKH9678-96-67 10:28:00 Test Item Value Reference Range Interpretation Comments Magnesium Lvl (test code = Magnesium 1.8 1.8-2.4 N Lvl) [facility] CenterGldfotiWOKOBUFQC4013-11-09 10:28:00 Test Item Value Reference Range Interpretation Comments Potassium Lvl (test code = Potassium 3.7 3.5-5.1 N Lvl) [facility] CenterYpnqukiPEMCMWSWJ9598-62-11 10:28:00 Test Item Value Reference Range Interpretation Comments Sodium Lvl (test code = Sodium Lvl) 137 135-145 N [facility] CenterCfwqtjhEAQPGUQRI9224-00-67 10:28:00 Test Item Value Reference Range Interpretation Comments Creatinine Lvl (test code = Creatinine 0.6 0.5-1.4 N Lvl) [facility] CenterLbarprjJKXVDWVZS7785-84-36 10:28:00 Test Item Value Reference Range Interpretation Comments BUN (test code = BUN) 16 7-22 N [facility] CenterUgntqxtEVHPWWTYH6742-78-32 10:28:00 Test Item Value Reference Range Interpretation Comments Glucose Lvl (test code = Glucose Lvl) 200 [facility] CenterRqwelgqQWCBMRRWP9871-12-02 10:28:00 Test Item Value Reference Range Interpretation Comments Calcium Lvl (test code = Calcium Lvl) 8.3 8.5-10.5 L [facility] CenterTabgsdmCCDESTSXZ4517-08-89 10:28:00 Test Item Value Reference Range Interpretation Comments AGAP (test code = AGAP) 19.7 10.0-20.0 N [facility] CenterGicezdfMHGRAMRFO6171-34-96 10:28:00 Test Item Value Reference Range Interpretation Comments Chloride Lvl (test code = Chloride Lvl) 99 95-109 N [facility] CenterDmvzsueKEXRKAUTS8428-28-24 10:28:00 Test Item Value Reference Range Interpretation Comments CO2 (test code = CO2) 22 24-32 L [facility] HospitalEmpcmffSQEMEGWTBJ6033-30-24 10:28:00 Test Item Value Reference Range Interpretation Comments Platelet (test code = Platelet) 172 133-450 N [facility] HospitalFbwvdmiYFTCHDLWBE1927-35-22 10:28:00 Test Item Value Reference Range Interpretation Comments MPV (test code = MPV) 12.0 7.4-10.4 H [facility] HospitalYaotxujSOJACSTDUJ2178-55-00 10:28:00 Test Item Value Reference Range Interpretation Comments WBC (test code = WBC) 7.3 3.7-10.4 N [facility] HospitalBppfbnsZJUNRSUURX5703-65-80 10:28:00 Test Item Value Reference Range Interpretation Comments RDW (test code = RDW) 14.6 11.5-14.5 H [facility] HospitalSvaxfjaOEDWRXTAUX2323-33-66 10:28:00 Test Item Value Reference Range Interpretation Comments MCHC (test code = MCHC) 35.0 32.0-36.0 N [facility] HospitalTntfxejWICTQXJOXW2567-12-61 10:28:00 Test Item Value Reference Range Interpretation Comments RBC (test code = RBC) 4.54 4.20-5.40 N [facility] HospitalCdjmvtiABAYSUKRIG3061-35-12 10:28:00 Test Item Value Reference Range Interpretation Comments Hct (test code = Hct) 37.6 36.0-48.0 N [facility] HospitalTpkdtchJMDUBCUFFA1923-68-13 10:28:00 Test Item Value Reference Range Interpretation Comments MCV (test code = MCV) 82.9 81.0-99.0 N [facility] HospitalInhxuawAZLZFCSYDU1389-24-11 10:28:00 Test Item Value Reference Range Interpretation Comments MCH (test code = MCH) 29.0 pg 27.0-31.0 N [facility] HospitalQgldlqhTMKQBZOPTX9634-25-02 10:28:00 Test Item Value Reference Range Interpretation Comments Hgb (test code = Hgb) 13.2 12.0-16.0 N [facility] HospitalWitfjouXHMIQBZSPJ5803-85-02 10:28:00 Test Item Value Reference Range Interpretation Comments Elliptocyte (test code = Slight A Elliptocyte) *ABN*(08/21/2011 04:28:00) [facility] HospitalTmjxggrPYTPKIIKVJ5025-74-26 10:28:00 Test Item Value Reference Range Interpretation Comments Polychrom (test code = Slight (08/21/2011 N Polychrom) 04:28:00) [facility] HospitalZjtisnnUHCVPGSVFS6291-75-69 10:28:00 Test Item Value Reference Range Interpretation Comments Basophils # (test code 0.0 See_Comment N [Aut omated message] The = Basophils #) system which generated this result tra nsmitted reference range : <=0.2. The reference r leo was not used to int erpret this result as normal/abnormal . [facility] HospitalMtpddypLDJAHTEGOL7094-42-55 10:28:00 Test Item Value Reference Range Interpretation Comments Hypochrom (test code = Slight (08/21/2011 N Hypochrom) 04:28:00) [facility] HospitalVdlvmstNYADNOBLAD9649-97-23 10:28:00 Test Item Value Reference Range Interpretation Comments Monocytes # (test code 0.6 See_Comment N [Aut omated message] The = Monocytes #) system which generated this result tra nsmitted reference range : <=0.8. The reference r leo was not used to int erpret this result as normal/abnormal . [facility] HospitalTeozxlzBCNBLHBTCH0947-14-98 10:28:00 Test Item Value Reference Range Interpretation Comments Eosinophils # (test code 0.0 See_Comment N [A utomated message] The = Eosinophils #) system whic h generated this result tra nsmitted reference range : <=0.5. The reference r leo was not used to int erpret this result as normal/abnormal . [facility] HospitalDkdmlhqXNXWUDMXBG9557-33-82 10:28:00 Test Item Value Reference Range Interpretation Comments Segs-Bands # (test code = Segs-Bands #) 5.3 1.5-8.1 N [facility] HospitalXggxrsmJEKUEAOQFZ7823-08-00 10:28:00 Test Item Value Reference Range Interpretation Comments Lymphocytes # (test code = Lymphocytes 1.3 1.0-5.5 N #) [facility] HospitalNzgusfnJERBDNWKZL8101-92-10 10:28:00 Test Item Value Reference Range Interpretation Comments Basophils (test code = 0.5 See_Comment N [Aut omated message] The Basophils) system which ge nerated this result tra nsmitted reference range : <=1.0. The reference r leo was not used to int erpret this result as normal/abnormal . [facility] HospitalPlcufndFFYJYGDWXE7877-54-87 10:28:00 Test Item Value Reference Range Interpretation Comments Monocytes (test code = Monocytes) 8.5 2.0-12.0 N [facility] HospitalIyilcasYYQJUEZHTW8303-67-48 10:28:00 Test Item Value Reference Range Interpretation Comments Eosinophils (test code = 0.3 See_Comment N [A utomated message] The Eosinophils) system which ge nerated this result tra nsmitted reference range : <=4.0. The reference r leo was not used to int erpret this result as normal/abnormal . [facility] HospitalVweqohrXUWTVNZGRE5492-98-99 10:28:00 Test Item Value Reference Range Interpretation Comments Lymphocytes (test code = Lymphocytes) 17.3 20.0-40.0 L [facility]WzupxsdJWOEDTIXSP4448-76-41 10:28:00 Test Item Value Reference Range Interpretation Comments Segs (test code = Segs) 73.4 45.0-75.0 N [facility] CenterSconefmPXBDHXFLW9421-25-40 10:28:00 Test Item Value Reference Range Interpretation Comments Phosphorus (test code = Phosphorus) 2.6 2.5-4.5 N [facility] CenterWvljpxeJHLDUFVOI4595-52-55 10:28:00 Test Item Value Reference Range Interpretation Comments Magnesium Lvl (test code = Magnesium 1.8 1.8-2.4 N Lvl) [facility] CenterZtwflawDHLDSOVMV5649-45-17 10:28:00 Test Item Value Reference Range Interpretation Comments Potassium Lvl (test code = Potassium 3.7 3.5-5.1 N Lvl) [facility] CenterBriehrzZRRQVGZXF3031-50-88 10:28:00 Test Item Value Reference Range Interpretation Comments Sodium Lvl (test code = Sodium Lvl) 137 135-145 N [facility] CenterDuxqxjyOYQEUARAU1249-69-67 10:28:00 Test Item Value Reference Range Interpretation Comments Creatinine Lvl (test code = Creatinine 0.6 0.5-1.4 N Lvl) [facility] CenterXduvfeuUFHREJHGX5846-72-16 10:28:00 Test Item Value Reference Range Interpretation Comments BUN (test code = BUN) 16 7-22 N [facility] CenterBvvbagrSTJUWCJKZ3618-47-82 10:28:00 Test Item Value Reference Range Interpretation Comments Glucose Lvl (test code = Glucose Lvl) 200 [facility] CenterPkxhxeiBOYUJOAWA4531-62-59 10:28:00 Test Item Value Reference Range Interpretation Comments Calcium Lvl (test code = Calcium Lvl) 8.3 8.5-10.5 L [facility] CenterEenwrhsAKBHAPGIZ8082-32-42 10:28:00 Test Item Value Reference Range Interpretation Comments AGAP (test code = AGAP) 19.7 10.0-20.0 N [facility] CenterTkoladuNODBGADEM4555-33-67 10:28:00 Test Item Value Reference Range Interpretation Comments Chloride Lvl (test code = Chloride Lvl) 99 95-109 N [facility] CenterAysenfqJTLKVHYET9211-61-17 10:28:00 Test Item Value Reference Range Interpretation Comments CO2 (test code = CO2) 22 24-32 L [facility] HospitalQwkptokYPXNKAJNYA5704-07-47 10:28:00 Test Item Value Reference Range Interpretation Comments Platelet (test code = Platelet) 172 133-450 N [facility] HospitalXmduqmfHKESEOGKWC0008-44-63 10:28:00 Test Item Value Reference Range Interpretation Comments MPV (test code = MPV) 12.0 7.4-10.4 H [facility] HospitalRmgfgusTUAUZHURND5683-72-18 10:28:00 Test Item Value Reference Range Interpretation Comments WBC (test code = WBC) 7.3 3.7-10.4 N [facility] HospitalHngmyifDEFCELSZLC1939-39-92 10:28:00 Test Item Value Reference Range Interpretation Comments RDW (test code = RDW) 14.6 11.5-14.5 H [facility] HospitalYgnbfulVQIJLRYPVA8749-00-54 10:28:00 Test Item Value Reference Range Interpretation Comments MCHC (test code = MCHC) 35.0 32.0-36.0 N [facility] HospitalKgquitzDIBWDFJJRS3458-76-44 10:28:00 Test Item Value Reference Range Interpretation Comments RBC (test code = RBC) 4.54 4.20-5.40 N [facility] HospitalErkxorvIPQQJORNDV8664-71-55 10:28:00 Test Item Value Reference Range Interpretation Comments Hct (test code = Hct) 37.6 36.0-48.0 N [facility] HospitalXskbfzbXKEVLJXSMU5129-11-55 10:28:00 Test Item Value Reference Range Interpretation Comments MCV (test code = MCV) 82.9 81.0-99.0 N [facility] HospitalXyugoibTWXJPWOOTU2253-04-23 10:28:00 Test Item Value Reference Range Interpretation Comments MCH (test code = MCH) 29.0 pg 27.0-31.0 N [facility] HospitalTlwvcjsKJTNHSSLEC9174-64-26 10:28:00 Test Item Value Reference Range Interpretation Comments Hgb (test code = Hgb) 13.2 12.0-16.0 N [facility] HospitalGtsdlztESBPNTKEPH5920-49-01 10:28:00 Test Item Value Reference Range Interpretation Comments Elliptocyte (test code = Slight A Elliptocyte) *ABN*(08/21/2011 04:28:00) [facility] HospitalTlwiktoQLZIVXEIHF7654-96-71 10:28:00 Test Item Value Reference Range Interpretation Comments Polychrom (test code = Slight (08/21/2011 N Polychrom) 04:28:00) [facility] HospitalGdgxorbCGXPLWVQMZ9717-62-61 10:28:00 Test Item Value Reference Range Interpretation Comments Basophils # (test code 0.0 See_Comment N [Aut omated message] The = Basophils #) system which generated this result tra nsmitted reference range : <=0.2. The reference r leo was not used to int erpret this result as normal/abnormal . [facility] HospitalZgdstomNIDYVHYYFM1965-96-40 10:28:00 Test Item Value Reference Range Interpretation Comments Hypochrom (test code = Slight (08/21/2011 N Hypochrom) 04:28:00) [facility] HospitalMkcmhkzQSVJBPMLKR5111-58-10 10:28:00 Test Item Value Reference Range Interpretation Comments Monocytes # (test code 0.6 See_Comment N [Aut omated message] The = Monocytes #) system which generated this result tra nsmitted reference range : <=0.8. The reference r leo was not used to int erpret this result as normal/abnormal . [facility] HospitalKhrbfqmDYCILQMRMP3628-35-32 10:28:00 Test Item Value Reference Range Interpretation Comments Eosinophils # (test code 0.0 See_Comment N [A utomated message] The = Eosinophils #) system whic h generated this result tra nsmitted reference range : <=0.5. The reference r leo was not used to int erpret this result as normal/abnormal . [facility] HospitalUquwovbDMYASIHLDB7575-51-09 10:28:00 Test Item Value Reference Range Interpretation Comments Segs-Bands # (test code = Segs-Bands #) 5.3 1.5-8.1 N [facility] HospitalJjbpatsEWUYLIAMAA8625-82-82 10:28:00 Test Item Value Reference Range Interpretation Comments Lymphocytes # (test code = Lymphocytes 1.3 1.0-5.5 N #) [facility] HospitalOghiiwmYHZYJXUJPT7545-41-05 10:28:00 Test Item Value Reference Range Interpretation Comments Basophils (test code = 0.5 See_Comment N [Aut omated message] The Basophils) system which ge nerated this result tra nsmitted reference range : <=1.0. The reference r leo was not used to int erpret this result as normal/abnormal . [facility] HospitalEijokncVVEDGNYPTD8307-29-55 10:28:00 Test Item Value Reference Range Interpretation Comments Monocytes (test code = Monocytes) 8.5 2.0-12.0 N [facility] HospitalZfnfdtnLNOUEQQFKB5915-72-72 10:28:00 Test Item Value Reference Range Interpretation Comments Eosinophils (test code = 0.3 See_Comment N [A utomated message] The Eosinophils) system which ge nerated this result tra nsmitted reference range : <=4.0. The reference r leo was not used to int erpret this result as normal/abnormal . [facility] HospitalTmjkywiEXXKJANYQF7222-97-68 10:28:00 Test Item Value Reference Range Interpretation Comments Lymphocytes (test code = Lymphocytes) 17.3 20.0-40.0 L [facility] HospitalPvyvihxMMMSFOQUWU6393-20-04 10:28:00 Test Item Value Reference Range Interpretation Comments Segs (test code = Segs) 73.4 45.0-75.0 N [facility] CenterJrzkkocRSTHUCRIZ9211-70-19 10:28:00 Test Item Value Reference Range Interpretation Comments Phosphorus (test code = Phosphorus) 2.6 2.5-4.5 N [facility] CenterVyqjkpvEJBUBSJBA4624-88-91 10:28:00 Test Item Value Reference Range Interpretation Comments Magnesium Lvl (test code = Magnesium 1.8 1.8-2.4 N Lvl) [facility] CenterQdkoavqCGVGXGBGT1993-64-70 10:28:00 Test Item Value Reference Range Interpretation Comments Potassium Lvl (test code = Potassium 3.7 3.5-5.1 N Lvl) [facility] CenterVuqpqmpVUYRWRQBO9046-44-99 10:28:00 Test Item Value Reference Range Interpretation Comments Sodium Lvl (test code = Sodium Lvl) 137 135-145 N [facility] CenterMawikqtQPWXZHFYO0819-16-48 10:28:00 Test Item Value Reference Range Interpretation Comments Creatinine Lvl (test code = Creatinine 0.6 0.5-1.4 N Lvl) [facility] CenterFsqsetzKWCKIUKYD9742-10-84 10:28:00 Test Item Value Reference Range Interpretation Comments BUN (test code = BUN) 16 7-22 N [facility] CenterDetwlnjKBLECWMQM2512-93-12 10:28:00 Test Item Value Reference Range Interpretation Comments Glucose Lvl (test code = Glucose Lvl) 200 [facility] CenterDyjnoldZFWUHFBLL9699-39-50 10:28:00 Test Item Value Reference Range Interpretation Comments Calcium Lvl (test code = Calcium Lvl) 8.3 8.5-10.5 L [facility] CenterWtdyuegHJLGMGXNY7834-49-97 10:28:00 Test Item Value Reference Range Interpretation Comments AGAP (test code = AGAP) 19.7 10.0-20.0 N [facility] CenterIlvmxfwHYLCHPQGM7881-57-31 10:28:00 Test Item Value Reference Range Interpretation Comments Chloride Lvl (test code = Chloride Lvl) 99 95-109 N [facility] CenterNscpnqsPZQZWPBRH7920-64-29 10:28:00 Test Item Value Reference Range Interpretation Comments CO2 (test code = CO2) 22 24-32 L [facility] HospitalFetyxupHRFNZPUQRC8417-73-26 10:28:00 Test Item Value Reference Range Interpretation Comments Platelet (test code = Platelet) 172 133-450 N [facility] HospitalCrqwkhnKRKAAAMSOH0927-28-05 10:28:00 Test Item Value Reference Range Interpretation Comments MPV (test code = MPV) 12.0 7.4-10.4 H [facility] HospitalYrlukovGUGPEZHZOS7433-45-73 10:28:00 Test Item Value Reference Range Interpretation Comments WBC (test code = WBC) 7.3 3.7-10.4 N [facility] HospitalEifxprwYQWOEUHCXL7141-06-24 10:28:00 Test Item Value Reference Range Interpretation Comments RDW (test code = RDW) 14.6 11.5-14.5 H [facility] HospitalFfzgphpNECALXFXDT5071-38-56 10:28:00 Test Item Value Reference Range Interpretation Comments MCHC (test code = MCHC) 35.0 32.0-36.0 N [facility] HospitalEenlhdlOUXWGBAGOW9432-28-57 10:28:00 Test Item Value Reference Range Interpretation Comments RBC (test code = RBC) 4.54 4.20-5.40 N [facility] HospitalMmkkqgyMGOJKDIQMX7359-73-15 10:28:00 Test Item Value Reference Range Interpretation Comments Hct (test code = Hct) 37.6 36.0-48.0 N [facility] HospitalClnuwudHTWVTQXQBE7636-50-24 10:28:00 Test Item Value Reference Range Interpretation Comments MCV (test code = MCV) 82.9 81.0-99.0 N [facility] HospitalRvxvqxhXVFJJOSOQB8564-40-35 10:28:00 Test Item Value Reference Range Interpretation Comments MCH (test code = MCH) 29.0 pg 27.0-31.0 N [facility] HospitalTivchnrJBYGRRHRVA9543-79-85 10:28:00 Test Item Value Reference Range Interpretation Comments Hgb (test code = Hgb) 13.2 12.0-16.0 N [facility] HospitalHfdmossSFFWFRNRYH0939-78-20 10:28:00 Test Item Value Reference Range Interpretation Comments Elliptocyte (test code = Slight A Elliptocyte) *ABN*(08/21/2011 04:28:00) [facility] HospitalQncuzvfWLFWNYIVYQ0489-89-90 10:28:00 Test Item Value Reference Range Interpretation Comments Polychrom (test code = Slight (08/21/2011 N Polychrom) 04:28:00) [facility] HospitalNfdmcxvRDHBJNTSOE2274-38-84 10:28:00 Test Item Value Reference Range Interpretation Comments Basophils # (test code 0.0 See_Comment N [Aut omated message] The = Basophils #) system which generated this result tra nsmitted reference range : <=0.2. The reference r leo was not used to int erpret this result as normal/abnormal . [facility] HospitalCkftwsdNCTQIODHAR3895-63-06 10:28:00 Test Item Value Reference Range Interpretation Comments Hypochrom (test code = Slight (08/21/2011 N Hypochrom) 04:28:00) [facility] HospitalIsgegxsIFEPXMLIEW9891-59-45 10:28:00 Test Item Value Reference Range Interpretation Comments Monocytes # (test code 0.6 See_Comment N [Aut omated message] The = Monocytes #) system which generated this result tra nsmitted reference range : <=0.8. The reference r leo was not used to int erpret this result as normal/abnormal . [facility] HospitalOaxdhpuPFOAAUKKTX4031-84-88 10:28:00 Test Item Value Reference Range Interpretation Comments Eosinophils # (test code 0.0 See_Comment N [A utomated message] The = Eosinophils #) system whic h generated this result tra nsmitted reference range : <=0.5. The reference r leo was not used to int erpret this result as normal/abnormal . [facility] HospitalYumcuryYUAZXDBWUV1073-79-35 10:28:00 Test Item Value Reference Range Interpretation Comments Segs-Bands # (test code = Segs-Bands #) 5.3 1.5-8.1 N [facility] HospitalZfbiramDBXNRGFJGS8658-21-20 10:28:00 Test Item Value Reference Range Interpretation Comments Lymphocytes # (test code = Lymphocytes 1.3 1.0-5.5 N #) [facility] HospitalTiupptkCHPKXPCAOM9926-84-18 10:28:00 Test Item Value Reference Range Interpretation Comments Basophils (test code = 0.5 See_Comment N [Aut omated message] The Basophils) system which ge nerated this result tra nsmitted reference range : <=1.0. The reference r leo was not used to int erpret this result as normal/abnormal . [facility] HospitalYbsbwljSMXWHLYQNC3483-13-28 10:28:00 Test Item Value Reference Range Interpretation Comments Monocytes (test code = Monocytes) 8.5 2.0-12.0 N [facility] HospitalUcvpituTBNIPHGVCB8218-28-44 10:28:00 Test Item Value Reference Range Interpretation Comments Eosinophils (test code = 0.3 See_Comment N [A utomated message] The Eosinophils) system which ge nerated this result tra nsmitted reference range : <=4.0. The reference r leo was not used to int erpret this result as normal/abnormal . [facility] HospitalSvyoqssRIPIVLFWMA3018-11-61 10:28:00 Test Item Value Reference Range Interpretation Comments Lymphocytes (test code = Lymphocytes) 17.3 20.0-40.0 L [facility] HospitalQuraqocWMFDRHFCTV2615-18-13 10:28:00 Test Item Value Reference Range Interpretation Comments Segs (test code = Segs) 73.4 45.0-75.0 N [facility] CenterMpiwnqvNBBPGHWXL9664-84-75 10:28:00 Test Item Value Reference Range Interpretation Comments Phosphorus (test code = Phosphorus) 2.6 2.5-4.5 N [facility] CenterYqvgrqcXUDMUGQHN3784-97-00 10:28:00 Test Item Value Reference Range Interpretation Comments Magnesium Lvl (test code = Magnesium 1.8 1.8-2.4 N Lvl) [facility] CenterKeoszdmNJGWEVEIC7713-40-16 10:28:00 Test Item Value Reference Range Interpretation Comments Potassium Lvl (test code = Potassium 3.7 3.5-5.1 N Lvl) [facility] CenterAznsighEZQDAPKYJ3261-82-98 10:28:00 Test Item Value Reference Range Interpretation Comments Sodium Lvl (test code = Sodium Lvl) 137 135-145 N [facility] CenterOrfyrdmEJQZOAUXF6372-93-12 10:28:00 Test Item Value Reference Range Interpretation Comments Creatinine Lvl (test code = Creatinine 0.6 0.5-1.4 N Lvl) [facility] CenterWrzrvpuAVONUAHUC3408-05-62 10:28:00 Test Item Value Reference Range Interpretation Comments BUN (test code = BUN) 16 7-22 N [facility] CenterDewibkoARDDCSKCR8163-09-03 10:28:00 Test Item Value Reference Range Interpretation Comments Glucose Lvl (test code = Glucose Lvl) 200 [facility] CenterVcpxnkyVMYZEDFBD5909-51-60 10:28:00 Test Item Value Reference Range Interpretation Comments Calcium Lvl (test code = Calcium Lvl) 8.3 8.5-10.5 L [facility] CenterMnseuyzYRMOQUWUH1177-72-54 10:28:00 Test Item Value Reference Range Interpretation Comments AGAP (test code = AGAP) 19.7 10.0-20.0 N [facility] CenterEsqesoeFZIVHVGDH8496-50-34 10:28:00 Test Item Value Reference Range Interpretation Comments Chloride Lvl (test code = Chloride Lvl) 99 95-109 N [facility] CenterWhrdvgrDSXYYSXTX4807-96-99 10:28:00 Test Item Value Reference Range Interpretation Comments CO2 (test code = CO2) 22 24-32 L [facility] HospitalBjeihboGATUGLOMQO6094-97-64 10:28:00 Test Item Value Reference Range Interpretation Comments Platelet (test code = Platelet) 172 133-450 N [facility] HospitalZqpxyldJHZTQOEFUP6351-04-04 10:28:00 Test Item Value Reference Range Interpretation Comments MPV (test code = MPV) 12.0 7.4-10.4 H [facility] HospitalRtzdmceFFSIKOQFOG6284-34-59 10:28:00 Test Item Value Reference Range Interpretation Comments WBC (test code = WBC) 7.3 3.7-10.4 N [facility] HospitalLaxdvfwUOXAHYKXEG7122-41-32 10:28:00 Test Item Value Reference Range Interpretation Comments RDW (test code = RDW) 14.6 11.5-14.5 H [facility] HospitalFadvcotWAPJOJVWBY2952-85-45 10:28:00 Test Item Value Reference Range Interpretation Comments MCHC (test code = MCHC) 35.0 32.0-36.0 N [facility] HospitalNcbeaihUULGVSLLBC4718-70-70 10:28:00 Test Item Value Reference Range Interpretation Comments RBC (test code = RBC) 4.54 4.20-5.40 N [facility] HospitalVbewfruAFAERCGOFP7703-09-66 10:28:00 Test Item Value Reference Range Interpretation Comments Hct (test code = Hct) 37.6 36.0-48.0 N [facility] HospitalVdscgrzFIIYCZXPWZ0314-65-34 10:28:00 Test Item Value Reference Range Interpretation Comments MCV (test code = MCV) 82.9 81.0-99.0 N [facility] HospitalGsymhkkRLFATMNCVD6679-08-14 10:28:00 Test Item Value Reference Range Interpretation Comments MCH (test code = MCH) 29.0 pg 27.0-31.0 N [facility] HospitalRujeartVXAAPXYAJV4219-02-96 10:28:00 Test Item Value Reference Range Interpretation Comments Hgb (test code = Hgb) 13.2 12.0-16.0 N [facility] HospitalWzcrkiuEKQAUGJLMD1575-44-33 10:28:00 Test Item Value Reference Range Interpretation Comments Elliptocyte (test code = Slight A Elliptocyte) *ABN*(08/21/2011 04:28:00) [facility] HospitalFghlznkDHMWIPZMHF3966-30-59 10:28:00 Test Item Value Reference Range Interpretation Comments Polychrom (test code = Slight (08/21/2011 N Polychrom) 04:28:00) [facility] HospitalArsysynLYIOSVJNAH7074-47-14 10:28:00 Test Item Value Reference Range Interpretation Comments Basophils # (test code 0.0 See_Comment N [Aut omated message] The = Basophils #) system which generated this result tra nsmitted reference range : <=0.2. The reference r leo was not used to int erpret this result as normal/abnormal . [facility] HospitalOssiajtNMHEWUALPP9802-21-37 10:28:00 Test Item Value Reference Range Interpretation Comments Hypochrom (test code = Slight (08/21/2011 N Hypochrom) 04:28:00) [facility] HospitalAlwrvzoPNRXMIPCAL4104-82-63 10:28:00 Test Item Value Reference Range Interpretation Comments Monocytes # (test code 0.6 See_Comment N [Aut omated message] The = Monocytes #) system which generated this result tra nsmitted reference range : <=0.8. The reference r leo was not used to int erpret this result as normal/abnormal . [facility] HospitalPczlmceZJPVORWFBP4937-33-59 10:28:00 Test Item Value Reference Range Interpretation Comments Eosinophils # (test code 0.0 See_Comment N [A utomated message] The = Eosinophils #) system whic h generated this result tra nsmitted reference range : <=0.5. The reference r leo was not used to int erpret this result as normal/abnormal . [facility] HospitalHagqrgyXKWZDYDDIV6878-56-46 10:28:00 Test Item Value Reference Range Interpretation Comments Segs-Bands # (test code = Segs-Bands #) 5.3 1.5-8.1 N [facility] HospitalHzaibwcMZHRRQTGOY4208-01-61 10:28:00 Test Item Value Reference Range Interpretation Comments Lymphocytes # (test code = Lymphocytes 1.3 1.0-5.5 N #) [facility] HospitalLnwocyaTJJOWXZMKL5745-62-22 10:28:00 Test Item Value Reference Range Interpretation Comments Basophils (test code = 0.5 See_Comment N [Aut omated message] The Basophils) system which ge nerated this result tra nsmitted reference range : <=1.0. The reference r leo was not used to int erpret this result as normal/abnormal . [facility] HospitalBujdwmwYIPATMLIFF7617-90-42 10:28:00 Test Item Value Reference Range Interpretation Comments Monocytes (test code = Monocytes) 8.5 2.0-12.0 N [facility] HospitalRzfraylGAWTXGVSUM6957-16-55 10:28:00 Test Item Value Reference Range Interpretation Comments Eosinophils (test code = 0.3 See_Comment N [A utomated message] The Eosinophils) system which ge nerated this result tra nsmitted reference range : <=4.0. The reference r leo was not used to int erpret this result as normal/abnormal . [facility] HospitalSwnxsnpHOSBRBHALX3957-30-19 10:28:00 Test Item Value Reference Range Interpretation Comments Lymphocytes (test code = Lymphocytes) 17.3 20.0-40.0 L [facility] HospitalEyeqlmxEWUTDSOOIF6812-76-04 10:28:00 Test Item Value Reference Range Interpretation Comments Segs (test code = Segs) 73.4 45.0-75.0 N [facility] GLUCOSE YGRYBQH4930-65-08 07:47:00 Test Item Value Reference Range Interpretation Comments Comment2 (test code = Comment2) Verify w/Lab [facility] GLUCOSE LKYFVMF2107-30-23 07:47:00 Test Item Value Reference Range Interpretation Comments Comment2 (test code = Comment2) Verify w/Lab [facility] GLUCOSE SREDQSU9515-24-34 07:47:00 Test Item Value Reference Range Interpretation Comments Comment2 (test code = Comment2) Verify w/Lab [facility] GLUCOSE ZDUTSCC1580-11-77 07:47:00 Test Item Value Reference Range Interpretation Comments Comment2 (test code = Comment2) [facility] w[facility]Lab [facility]CxjugbaYUCEMDTZB1242-23-99 21:58:00 Test Item Value Reference Range Interpretation Comments S Preg (test code = S Negative (08/19/2011 N Preg) 15:58:00) [facility] CenterQksknblGQPQXXMLM9696-24-70 21:58:00 Test Item Value Reference Range Interpretation Comments Lipase Lvl (test code = Lipase Lvl) 169 73-393 N [facility] CenterVckrnygJVOOXKLGZ2391-21-80 21:58:00 Test Item Value Reference Range Interpretation Comments ALT (test code = ALT) 54 See_Comment N [Auto mated message] The system which ge nerated this result transmit rohit reference range : <=65. The reference range was not used to interpr et this result as reji l/abnormal. [facility] CenterSvvgpctYCTBTQSBW5918-46-33 21:58:00 Test Item Value Reference Range Interpretation Comments Alk Phos (test code = Alk Phos) 110 39-136 N [facility] CenterNihtlggJUWWJSPTD0519-23-63 21:58:00 Test Item Value Reference Range Interpretation Comments Bili Direct (test code 0.1 See_Comment N [Aut omated message] The = Bili Direct) system which generated this result tra nsmitted reference range : <=0.3. The reference r leo was not used to int erpret this result as reji l/abnormal. [facility] CenterVnwddddHTMDOAIDM5181-17-70 21:58:00 Test Item Value Reference Range Interpretation Comments Bili Total (test code = Bili Total) 0.9 0.2-1.3 N [facility] CenterRuinbdhCXOLWOZHA1007-13-35 21:58:00 Test Item Value Reference Range Interpretation Comments Albumin Lvl (test code = Albumin Lvl) 4.4 3.5-5.0 N [facility] CenterKkkvgajBKGWWOLGT2064-00-46 21:58:00 Test Item Value Reference Range Interpretation Comments Total Protein (test code = Total 8.8 6.4-8.4 H Protein) [facility] CenterGgmwjteVZNBGBYBY3132-94-59 21:58:00 Test Item Value Reference Range Interpretation Comments Bili Indirect (test 0.8 See_Comment N [Automa rohit message] The code = Bili Indirect) system which generated this result tra nsmitted reference range : <=1.0. The reference r leo was not used to int erpret this result as normal/abnormal . [facility] CenterNurbqilIFNPCUCUW1459-88-79 21:58:00 Test Item Value Reference Range Interpretation Comments AST (test code = AST) 36 See_Comment N [Auto mated message] The system which ge nerated this result transmit rohit reference range : <=37. The reference range was not used to interpr et this result as reji l/abnormal. [facility] CenterWyobxsjHALGILWFU5457-34-97 21:58:00 Test Item Value Reference Range Interpretation Comments Globulin (test code = Globulin) 4.4 2.0-4.0 H [facility] CenterNkehltfVDUUGJHYK7388-18-62 21:58:00 Test Item Value Reference Range Interpretation Comments A/G Ratio (test code = A/G Ratio) 1.0 0.7-1.6 N [facility]EgqaagyKVMEFYTACY6191-40-06 21:58:00 Test Item Value Reference Range Interpretation Comments UA Bacteria (test code Occasional /HPF N = UA Bacteria) (08/19/2011 15:58:00) [facility] CenterLkebcjcZWYZFLUXFY8691-80-16 21:58:00 Test Item Value Reference Range Interpretation Comments UA RBC (test 3-5 /HPF See_Comment A [Automated mes pastor] code = UA RBC) *ABN*(08/19/2011 The syste m which 15:58:00) generated this result transmitted ref erence range: <=2. The reference range was not used to int erpret this result as normal/abnormal . [facility]RdsqzbaCKFIOQOOYE7320-55-89 21:58:00 Test Item Value Reference Range Interpretation Comments UA WBC (test code = 3 See_Comment [Automa rohit message] The UA WBC) system which ge nerated this result transmit rohit reference range : <=5. The reference range was not used to interpr et this result as reji l/abnormal. [facility] HospitalTxfstzgRXHFAWCHRG5915-53-54 21:58:00 Test Item Value Reference Range Interpretation Comments UA Mucus (test code = Few /LPF (08/19/2011 N UA Mucus) 15:58:00) [facility] HospitalIgcxnqlFIOWJHBATU4407-37-06 21:58:00 Test Item Value Reference Range Interpretation Comments UA Amorph Destiny (test Occasional /HPF A code = UA Amorph *ABN*(08/19/2011 Destiny) 15:58:00) [facility] HospitalVskjfwySJHLPNLPRY2261-70-89 21:58:00 Test Item Value Reference Range Interpretation Comments UA Urobilinogen (test code = UA 0.2 0.1-1.0 N Urobilinogen) [facility] HospitalWqmmvdlDCDJOBGMWN4531-58-69 21:58:00 Test Item Value Reference Range Interpretation Comments UA Sq Epi (test code = Rare /LPF (08/19/2011 N UA Sq Epi) 15:58:00) [facility] HospitalRglavtkOCRMLNDOAJ1747-89-48 21:58:00 Test Item Value Reference Range Interpretation Comments Micro? (test code = Performed (08/19/2011 N Micro?) 15:58:00) [facility] HospitalDauwfbvJYEOLDSSVE9144-18-88 21:58:00 Test Item Value Reference Range Interpretation Comments UA Leuk Est (test Negative (08/19/2011 N code = UA Leuk Est) 15:58:00) [facility] HospitalOgxiejeAFYKWIXOJJ6858-63-58 21:58:00 Test Item Value Reference Range Interpretation Comments UA Nitrite (test code Negative (08/19/2011 N = UA Nitrite) 15:58:00) [facility] HospitalZphxqniPRRSNRFNIH3996-83-06 21:58:00 Test Item Value Reference Range Interpretation Comments UA pH (test code = UA pH) 5.5 1 5.0-8.0 N [facility] HospitalHwblsrvCTMHWUTNXK6556-02-38 21:58:00 Test Item Value Reference Range Interpretation Comments UA Blood (test code = Trace *ABN*(08/19/2011 A UA Blood) 15:58:00) [facility] HospitalTiyrpbyGWTACKUMHJ8277-93-17 21:58:00 Test Item Value Reference Range Interpretation Comments UA Bili (test code = Negative (08/19/2011 N UA Bili) 15:58:00) [facility]KoywpzpSNABDXRVTH8518-53-61 21:58:00 Test Item Value Reference Range Interpretation Comments UA Ketones (test code = 80 mg/dL A UA Ketones) *ABN*(08/19/2011 15:58:00) [facility] HospitalXolytjxUINBHUITUO5593-16-92 21:58:00 Test Item Value Reference Range Interpretation Comments UA Glucose (test code = >=1000 mg/dL A UA Glucose) *ABN*(08/19/2011 15:58:00) [facility] HospitalWukqpqnLXRLZZXYFN9193-55-92 21:58:00 Test Item Value Reference Range Interpretation Comments UA Protein (test code Negative (08/19/2011 N = UA Protein) 15:58:00) [facility] HospitalYuwhbtxJKPZHBQXMG2779-10-33 21:58:00 Test Item Value Reference Range Interpretation Comments UA Turbidity (test code Slight Cloudy N = UA Turbidity) (08/19/2011 15:58:00) [facility] HospitalXrntofaMQZLFCHOAB6797-76-92 21:58:00 Test Item Value Reference Range Interpretation Comments UA Spec Grav (test code = UA Spec 1.025 1 Grav) [facility] HospitalEwzjdhpTEVZYNYHPY9433-14-78 21:58:00 Test Item Value Reference Range Interpretation Comments UA Color (test code = Yellow (08/19/2011 N UA Color) 15:58:00) [facility] CenterWafafiiWFGOFWOOF7682-39-37 21:58:00 Test Item Value Reference Range Interpretation Comments S Preg (test code = S Negative (08/19/2011 N Preg) 15:58:00) [facility] CenterMgtcbtoBRUOMDMFW1584-94-99 21:58:00 Test Item Value Reference Range Interpretation Comments Lipase Lvl (test code = Lipase Lvl) 169 73-393 N [facility] CenterQmuwzvgOHYISNDUK5741-06-12 21:58:00 Test Item Value Reference Range Interpretation Comments ALT (test code = ALT) 54 See_Comment N [Auto mated message] The system which ge nerated this result transmit rohit reference range : <=65. The reference range was not used to interpr et this result as reji l/abnormal. [facility] CenterNeujeznYFKWQUCYU7429-70-58 21:58:00 Test Item Value Reference Range Interpretation Comments Alk Phos (test code = Alk Phos) 110 39-136 N [facility] CenterVrefqqjHYQZKODZW3538-45-89 21:58:00 Test Item Value Reference Range Interpretation Comments Bili Direct (test code 0.1 See_Comment N [Aut omated message] The = Bili Direct) system which generated this result tra nsmitted reference range : <=0.3. The reference r leo was not used to int erpret this result as reji l/abnormal. [facility] CenterSscwytzONMMCQVBN7889-26-74 21:58:00 Test Item Value Reference Range Interpretation Comments Bili Total (test code = Bili Total) 0.9 0.2-1.3 N [facility] CenterKflflxgCVQJEHPWJ2907-54-79 21:58:00 Test Item Value Reference Range Interpretation Comments Albumin Lvl (test code = Albumin Lvl) 4.4 3.5-5.0 N [facility] CenterSyhgdedRMZCJFWFJ9466-32-45 21:58:00 Test Item Value Reference Range Interpretation Comments Total Protein (test code = Total 8.8 6.4-8.4 H Protein) [facility] CenterCsvhnfhKBCZVMWFA7988-44-74 21:58:00 Test Item Value Reference Range Interpretation Comments Bili Indirect (test 0.8 See_Comment N [Automa rohit message] The code = Bili Indirect) system which generated this result tra nsmitted reference range : <=1.0. The reference r leo was not used to int erpret this result as normal/abnormal . [facility] CenterZnmgtfgCSMCXGMQM1772-38-52 21:58:00 Test Item Value Reference Range Interpretation Comments AST (test code = AST) 36 See_Comment N [Auto mated message] The system which ge nerated this result transmit rohit reference range : <=37. The reference range was not used to interpr et this result as reji l/abnormal. [facility] CenterIfnjefiCYUDOODID1255-75-18 21:58:00 Test Item Value Reference Range Interpretation Comments Globulin (test code = Globulin) 4.4 2.0-4.0 H [facility] CenterAweqhbbXCRLRCXIT7329-71-49 21:58:00 Test Item Value Reference Range Interpretation Comments A/G Ratio (test code = A/G Ratio) 1.0 0.7-1.6 N [facility] CenterUixremnTKFCNYUYTY2209-27-80 21:58:00 Test Item Value Reference Range Interpretation Comments UA Bacteria (test code Occasional /HPF N = UA Bacteria) (08/19/2011 15:58:00) [facility] HospitalTjmavazUSJPQPTYUJ7329-41-28 21:58:00 Test Item Value Reference Range Interpretation Comments UA RBC (test 3-5 /HPF See_Comment A [Automated mes pastor] code = UA RBC) *ABN*(08/19/2011 The syste m which 15:58:00) generated this result transmitted ref erence range: <=2. The reference range was not used to int erpret this result as normal/abnormal . [facility] HospitalHjeqplqTOJJVCEWFI9817-00-91 21:58:00 Test Item Value Reference Range Interpretation Comments UA WBC (test code = 3 See_Comment [Automa rohit message] The UA WBC) system which ge nerated this result transmit rohit reference range : <=5. The reference range was not used to interpr et this result as reji l/abnormal. [facility] HospitalDtjkgroADLMYSUVHB4669-75-75 21:58:00 Test Item Value Reference Range Interpretation Comments UA Mucus (test code = Few /LPF (08/19/2011 N UA Mucus) 15:58:00) [facility]YnonqukPHWUKVNLDV3458-76-74 21:58:00 Test Item Value Reference Range Interpretation Comments UA Amorph Destiny (test Occasional /HPF A code = UA Amorph *ABN*(08/19/2011 Destiny) 15:58:00) [facility] HospitalXqjsnhnGPEVFUPWBX2933-43-18 21:58:00 Test Item Value Reference Range Interpretation Comments UA Urobilinogen (test code = UA 0.2 0.1-1.0 N Urobilinogen) [facility] HospitalCdslcrlRWGHNMYBWE3994-76-69 21:58:00 Test Item Value Reference Range Interpretation Comments UA Sq Epi (test code = Rare /LPF (08/19/2011 N UA Sq Epi) 15:58:00) [facility] HospitalBiebrvhWJCKTOLDJF6157-70-65 21:58:00 Test Item Value Reference Range Interpretation Comments Micro? (test code = Performed (08/19/2011 N Micro?) 15:58:00) [facility] HospitalBwilskeUCXYYUWEQI2992-86-31 21:58:00 Test Item Value Reference Range Interpretation Comments UA Leuk Est (test Negative (08/19/2011 N code = UA Leuk Est) 15:58:00) [facility] HospitalWgfkjryRPACZZJYHV1189-95-65 21:58:00 Test Item Value Reference Range Interpretation Comments UA Nitrite (test code Negative (08/19/2011 N = UA Nitrite) 15:58:00) [facility] HospitalEkuenljTIIINLAKTQ6029-99-96 21:58:00 Test Item Value Reference Range Interpretation Comments UA pH (test code = UA pH) 5.5 1 5.0-8.0 N [facility] HospitalAnuwmkrIJENGQDWLM7575-47-18 21:58:00 Test Item Value Reference Range Interpretation Comments UA Blood (test code = Trace *ABN*(08/19/2011 A UA Blood) 15:58:00) [facility] HospitalLpxgjqkAZXTWRQJUP6277-51-80 21:58:00 Test Item Value Reference Range Interpretation Comments UA Bili (test code = Negative (08/19/2011 N UA Bili) 15:58:00) [facility]MmfcyiwFTVHZCTVMZ1619-33-99 21:58:00 Test Item Value Reference Range Interpretation Comments UA Ketones (test code = 80 mg/dL A UA Ketones) *ABN*(08/19/2011 15:58:00) [facility] HospitalBuetklxSKQORUSIUB1722-72-46 21:58:00 Test Item Value Reference Range Interpretation Comments UA Glucose (test code = >=1000 mg/dL A UA Glucose) *ABN*(08/19/2011 15:58:00) [facility] HospitalRfmvfmsBTKFTGDMQP0289-38-46 21:58:00 Test Item Value Reference Range Interpretation Comments UA Protein (test code Negative (08/19/2011 N = UA Protein) 15:58:00) [facility] HospitalNclsjmbSFGOFEPFQE2168-84-24 21:58:00 Test Item Value Reference Range Interpretation Comments UA Turbidity (test code Slight Cloudy N = UA Turbidity) (08/19/2011 15:58:00) [facility] HospitalYyzwklqWGDYPEYDXA3910-79-59 21:58:00 Test Item Value Reference Range Interpretation Comments UA Spec Grav (test code = UA Spec 1.025 1 Grav) [facility] HospitalPanmvchIATPWCUEUP0146-64-84 21:58:00 Test Item Value Reference Range Interpretation Comments UA Color (test code = Yellow (08/19/2011 N UA Color) 15:58:00) [facility] CenterJrhpdzpDTZSQTKVX7493-98-71 21:58:00 Test Item Value Reference Range Interpretation Comments S Preg (test code = S Negative (08/19/2011 N Preg) 15:58:00) [facility] CenterVnrztojGHXRQNAME1309-28-58 21:58:00 Test Item Value Reference Range Interpretation Comments Lipase Lvl (test code = Lipase Lvl) 169 73-393 N [facility] CenterZmrmgrvTXPRHMUDT8080-15-73 21:58:00 Test Item Value Reference Range Interpretation Comments ALT (test code = ALT) 54 See_Comment N [Auto mated message] The system which ge nerated this result transmit rohit reference range : <=65. The reference range was not used to interpr et this result as reji l/abnormal. [facility] CenterNlsmkorJNVECJHAE9273-75-26 21:58:00 Test Item Value Reference Range Interpretation Comments Alk Phos (test code = Alk Phos) 110 39-136 N [facility] CenterApsxnsbQSLWPFNQU4178-68-42 21:58:00 Test Item Value Reference Range Interpretation Comments Bili Direct (test code 0.1 See_Comment N [Aut omated message] The = Bili Direct) system which generated this result tra nsmitted reference range : <=0.3. The reference r leo was not used to int erpret this result as reji l/abnormal. [facility] CenterWsrybuoZWHGHGXHF9707-62-51 21:58:00 Test Item Value Reference Range Interpretation Comments Bili Total (test code = Bili Total) 0.9 0.2-1.3 N [facility] CenterTvjnlsuKLQHJKGRY0615-74-79 21:58:00 Test Item Value Reference Range Interpretation Comments Albumin Lvl (test code = Albumin Lvl) 4.4 3.5-5.0 N [facility] CenterAqdljoeBXUWTPXIO5089-94-78 21:58:00 Test Item Value Reference Range Interpretation Comments Total Protein (test code = Total 8.8 6.4-8.4 H Protein) [facility] CenterZmdzgvxTDITKYZHY0371-35-24 21:58:00 Test Item Value Reference Range Interpretation Comments Bili Indirect (test 0.8 See_Comment N [Automa rohit message] The code = Bili Indirect) system which generated this result tra nsmitted reference range : <=1.0. The reference r leo was not used to int erpret this result as normal/abnormal . [facility] CenterSqiqhhkRLVGUIBXA4470-52-79 21:58:00 Test Item Value Reference Range Interpretation Comments AST (test code = AST) 36 See_Comment N [Auto mated message] The system which ge nerated this result transmit rohit reference range : <=37. The reference range was not used to interpr et this result as reji l/abnormal. [facility] CenterImrdfrlOXSCWUPVJ7243-47-38 21:58:00 Test Item Value Reference Range Interpretation Comments Globulin (test code = Globulin) 4.4 2.0-4.0 H [facility] TexasRgkbidbKFMNAEAKV6004-90-24 21:58:00 Test Item Value Reference Range Interpretation Comments A/G Ratio (test code = A/G Ratio) 1.0 0.7-1.6 N [facility] CenterBrgwylyYVWWGPOPEQ1366-84-43 21:58:00 Test Item Value Reference Range Interpretation Comments UA Bacteria (test code Occasional /HPF N = UA Bacteria) (08/19/2011 15:58:00) [facility] CenterNtweforGRPESUSMPS0554-78-43 21:58:00 Test Item Value Reference Range Interpretation Comments UA RBC (test 3-5 /HPF See_Comment A [Automated mes pastor] code = UA RBC) *ABN*(08/19/2011 The syste m which 15:58:00) generated this result transmitted ref erence range: <=2. The reference range was not used to int erpret this result as normal/abnormal . [facility] TexasSkqdunyCUIKOHTGNN4113-19-68 21:58:00 Test Item Value Reference Range Interpretation Comments UA WBC (test code = 3 See_Comment [Automa rohit message] The UA WBC) system which ge nerated this result transmit rohit reference range : <=5. The reference range was not used to interpr et this result as reji l/abnormal. [facility] TexasNaiafnjJPXJUYPTIR5681-30-34 21:58:00 Test Item Value Reference Range Interpretation Comments UA Mucus (test code = Few /LPF (08/19/2011 N UA Mucus) 15:58:00) [facility] CenterYwmsionOSXKUPVJTE8393-56-45 21:58:00 Test Item Value Reference Range Interpretation Comments UA Amorph Destiny (test Occasional /HPF A code = UA Amorph *ABN*(08/19/2011 Destiny) 15:58:00) [facility] HospitalCrqnbnjYXSGYEACBQ6371-35-57 21:58:00 Test Item Value Reference Range Interpretation Comments UA Urobilinogen (test code = UA 0.2 0.1-1.0 N Urobilinogen) [facility] HospitalHwxwtzuOGMUJFAMCI2763-89-01 21:58:00 Test Item Value Reference Range Interpretation Comments UA Sq Epi (test code = Rare /LPF (08/19/2011 N UA Sq Epi) 15:58:00) [facility] HospitalZjhyyizUGRMOJCLER6539-12-93 21:58:00 Test Item Value Reference Range Interpretation Comments Micro? (test code = Performed (08/19/2011 N Micro?) 15:58:00) [facility] HospitalIvbjmaaBBWSAYBEDX0688-65-19 21:58:00 Test Item Value Reference Range Interpretation Comments UA Leuk Est (test Negative (08/19/2011 N code = UA Leuk Est) 15:58:00) [facility] CenterZvxaqzlPLWEQEOFSV3563-74-72 21:58:00 Test Item Value Reference Range Interpretation Comments UA Nitrite (test code Negative (08/19/2011 N = UA Nitrite) 15:58:00) [facility] HospitalJsyiswfRLLCSEJVMW2734-40-57 21:58:00 Test Item Value Reference Range Interpretation Comments UA pH (test code = UA pH) 5.5 1 5.0-8.0 N [facility] HospitalKzvtwfnAANPNHUECF7254-26-87 21:58:00 Test Item Value Reference Range Interpretation Comments UA Blood (test code = Trace *ABN*(08/19/2011 A UA Blood) 15:58:00) [facility] CenterRwcaycsSSOQLCRFMS4269-20-36 21:58:00 Test Item Value Reference Range Interpretation Comments UA Bili (test code = Negative (08/19/2011 N UA Bili) 15:58:00) [facility] HospitalRjkbwthGYWLSHKLCM1724-71-10 21:58:00 Test Item Value Reference Range Interpretation Comments UA Ketones (test code = 80 mg/dL A UA Ketones) *ABN*(08/19/2011 15:58:00) [facility] CenterYjgzbkgRRJLUVDUQL3641-82-49 21:58:00 Test Item Value Reference Range Interpretation Comments UA Glucose (test code = >=1000 mg/dL A UA Glucose) *ABN*(08/19/2011 15:58:00) [facility] HospitalLoudjhpNQQLWLIBTX5123-44-81 21:58:00 Test Item Value Reference Range Interpretation Comments UA Protein (test code Negative (08/19/2011 N = UA Protein) 15:58:00) [facility] HospitalQozojlhTHXMARUBDZ5041-67-57 21:58:00 Test Item Value Reference Range Interpretation Comments UA Turbidity (test code Slight Cloudy N = UA Turbidity) (08/19/2011 15:58:00) [facility] HospitalMiqwcfnKQWBQQPIVQ1381-38-03 21:58:00 Test Item Value Reference Range Interpretation Comments UA Spec Grav (test code = UA Spec 1.025 1 Grav) [facility] HospitalSdtsfvyINXRZWRNJS6232-02-38 21:58:00 Test Item Value Reference Range Interpretation Comments UA Color (test code = Yellow (08/19/2011 N UA Color) 15:58:00) [facility] CenterPfbizreSHOLQKIYI5108-68-94 21:58:00 Test Item Value Reference Range Interpretation Comments S Preg (test code = S Negative (08/19/2011 N Preg) 15:58:00) [facility] CenterGirbeyyAYTILSOER6724-14-26 21:58:00 Test Item Value Reference Range Interpretation Comments Lipase Lvl (test code = Lipase Lvl) 169 73-393 N [facility] CenterHbvpznmUZFEBIIOO2051-84-40 21:58:00 Test Item Value Reference Range Interpretation Comments ALT (test code = ALT) 54 See_Comment N [Auto mated message] The system which ge nerated this result transmit rohit reference range : <=65. The reference range was not used to interpr et this result as reji l/abnormal. [facility] TexasCsxiztaOGISIIWQW2372-08-73 21:58:00 Test Item Value Reference Range Interpretation Comments Alk Phos (test code = Alk Phos) 110 39-136 N [facility] CenterSmbckfbOEDLCQSGK3329-14-96 21:58:00 Test Item Value Reference Range Interpretation Comments Bili Direct (test code 0.1 See_Comment N [Aut omated message] The = Bili Direct) system which generated this result tra nsmitted reference range : <=0.3. The reference r leo was not used to int erpret this result as reji l/abnormal. [facility] TexasYzvqwjwMICWCCQLF1745-42-58 21:58:00 Test Item Value Reference Range Interpretation Comments Bili Total (test code = Bili Total) 0.9 0.2-1.3 N [facility] CenterTxhnsbvUEKRYOBZI7516-03-61 21:58:00 Test Item Value Reference Range Interpretation Comments Albumin Lvl (test code = Albumin Lvl) 4.4 3.5-5.0 N [facility] CenterQlwbbgvQTZZRTMUO2192-13-51 21:58:00 Test Item Value Reference Range Interpretation Comments Total Protein (test code = Total 8.8 6.4-8.4 H Protein) [facility] CenterNzanyoxASASRGUBT0300-96-81 21:58:00 Test Item Value Reference Range Interpretation Comments Bili Indirect (test 0.8 See_Comment N [Automa rohit message] The code = Bili Indirect) system which generated this result tra nsmitted reference range : <=1.0. The reference r leo was not used to int erpret this result as normal/abnormal . [facility] CenterFuyxtjyRWDQPAVLH5689-49-62 21:58:00 Test Item Value Reference Range Interpretation Comments AST (test code = AST) 36 See_Comment N [Auto mated message] The system which ge nerated this result transmit rohit reference range : <=37. The reference range was not used to interpr et this result as reji l/abnormal. [facility] CenterHvxrxywODUKYJIDE6133-75-50 21:58:00 Test Item Value Reference Range Interpretation Comments Globulin (test code = Globulin) 4.4 2.0-4.0 H [facility] CenterArzlrwuSSXQEXYSG8248-24-37 21:58:00 Test Item Value Reference Range Interpretation Comments A/G Ratio (test code = A/G Ratio) 1.0 0.7-1.6 N [facility] HospitalHawlnlsVSMQXEKRBK5427-08-30 21:58:00 Test Item Value Reference Range Interpretation Comments UA Bacteria (test code Occasional /HPF N = UA Bacteria) (08/19/2011 15:58:00) [facility] HospitalLejhtjfSONKZYNUWH3298-42-52 21:58:00 Test Item Value Reference Range Interpretation Comments UA RBC (test 3-5 /HPF See_Comment A [Automated mes pastor] code = UA RBC) *ABN*(08/19/2011 The syste m which 15:58:00) generated this result transmitted ref erence range: <=2. The reference range was not used to int erpret this result as normal/abnormal . [facility] TexasZytlfxgDRQFSAACEH5147-12-55 21:58:00 Test Item Value Reference Range Interpretation Comments UA WBC (test code = 3 See_Comment [Automa rohit message] The UA WBC) system which ge nerated this result transmit rohit reference range : <=5. The reference range was not used to interpr et this result as reji l/abnormal. [facility] CenterPytzhjqNVGWQJWLFI5703-89-30 21:58:00 Test Item Value Reference Range Interpretation Comments UA Mucus (test code = Few /LPF (08/19/2011 N UA Mucus) 15:58:00) [facility] HospitalOmkdgdqGCVMVSZKFE2093-67-40 21:58:00 Test Item Value Reference Range Interpretation Comments UA Amorph Destiny (test Occasional /HPF A code = UA Amorph *ABN*(08/19/2011 Destiny) 15:58:00) [facility] CenterPvblbwgMHUYMMTXFK0149-51-17 21:58:00 Test Item Value Reference Range Interpretation Comments UA Urobilinogen (test code = UA 0.2 0.1-1.0 N Urobilinogen) [facility] CenterSbrlfjvAPIWIHBUIJ0022-43-17 21:58:00 Test Item Value Reference Range Interpretation Comments UA Sq Epi (test code = Rare /LPF (08/19/2011 N UA Sq Epi) 15:58:00) [facility] HospitalYuzrrgmLPJNFMVPTJ9517-53-94 21:58:00 Test Item Value Reference Range Interpretation Comments Micro? (test code = Performed (08/19/2011 N Micro?) 15:58:00) [facility] CenterRznpwdlZHNRUFEPEE9635-39-42 21:58:00 Test Item Value Reference Range Interpretation Comments UA Leuk Est (test Negative (08/19/2011 N code = UA Leuk Est) 15:58:00) [facility] TexasBoyjufsGITAFHDJWW0418-17-37 21:58:00 Test Item Value Reference Range Interpretation Comments UA Nitrite (test code Negative (08/19/2011 N = UA Nitrite) 15:58:00) [facility] HospitalFsngrccEPDPAFQYUH4116-23-55 21:58:00 Test Item Value Reference Range Interpretation Comments UA pH (test code = UA pH) 5.5 1 5.0-8.0 N [facility] HospitalAmcjoynDERXDMXBFR5264-65-49 21:58:00 Test Item Value Reference Range Interpretation Comments UA Blood (test code = Trace *ABN*(08/19/2011 A UA Blood) 15:58:00) [facility] HospitalRilsctjLTYMEHITFB0073-13-17 21:58:00 Test Item Value Reference Range Interpretation Comments UA Bili (test code = Negative (08/19/2011 N UA Bili) 15:58:00) [facility] CenterAltuyjtQGKNXMUQIB6894-87-11 21:58:00 Test Item Value Reference Range Interpretation Comments UA Ketones (test code = 80 mg/dL A UA Ketones) *ABN*(08/19/2011 15:58:00) [facility] CenterKzaegcbDWOAKKNFJM7749-19-93 21:58:00 Test Item Value Reference Range Interpretation Comments UA Glucose (test code = >=1000 mg/dL A UA Glucose) *ABN*(08/19/2011 15:58:00) [facility] CenterOcfkdqmEOIYJSZBCV3843-11-10 21:58:00 Test Item Value Reference Range Interpretation Comments UA Protein (test code Negative (08/19/2011 N = UA Protein) 15:58:00) [facility] CenterLsefxpdOIQTZLFSBV3275-80-39 21:58:00 Test Item Value Reference Range Interpretation Comments UA Turbidity (test code Slight Cloudy N = UA Turbidity) (08/19/2011 15:58:00) [facility] CenterPnslevgLAPVEHZHRW9071-02-28 21:58:00 Test Item Value Reference Range Interpretation Comments UA Spec Grav (test code = UA Spec 1.025 1 Grav) [facility] CenterZimwbczJRMVPCGXQQ3187-49-92 21:58:00 Test Item Value Reference Range Interpretation Comments UA Color (test code = Yellow (08/19/2011 N UA Color) 15:58:00) [facility] CenterRhkrglbWNNAIXYIE6206-81-64 21:13:00 Test Item Value Reference Range Interpretation Comments AST (test code = AST) 23 See_Comment N [Auto mated message] The system which ge nerated this result transmit rohit reference range : <=37. The reference range was not used to interpr et this result as reji l/abnormal. [facility] CenterIlwngvjGTHUSTBRQ6400-85-72 21:13:00 Test Item Value Reference Range Interpretation Comments Bili Total (test code = Bili Total) 1.0 0.2-1.3 N [facility] CenterTdrkaboQOYFZCIMD8722-17-96 21:13:00 Test Item Value Reference Range Interpretation Comments Alk Phos (test code = Alk Phos) 115 39-136 N [facility] CenterHkpdzmvWOTCLYVON3132-61-32 21:13:00 Test Item Value Reference Range Interpretation Comments ALT (test code = ALT) 56 See_Comment N [Auto mated message] The system which ge nerated this result transmit rohit reference range : <=65. The reference range was not used to interpr et this result as reji l/abnormal. [facility] CenterLnildmmVOXNWHXIL4036-68-35 21:13:00 Test Item Value Reference Range Interpretation Comments Total Protein (test code = Total 9.0 6.4-8.4 H Protein) [facility] CenterSncbcbhXCZEOVIIV9170-29-69 21:13:00 Test Item Value Reference Range Interpretation Comments Albumin Lvl (test code = Albumin Lvl) 4.8 3.5-5.0 N [facility] CenterDftsiciHFWTCXQNM5152-86-30 21:13:00 Test Item Value Reference Range Interpretation Comments Globulin (test code = Globulin) 4.2 2.0-4.0 H [facility] CenterDabypbeDEREXDEMN5908-93-45 21:13:00 Test Item Value Reference Range Interpretation Comments A/G Ratio (test code = A/G Ratio) 1.1 0.7-1.6 N [facility] CenterPkkszakCBFXSXCXX2011-48-11 21:13:00 Test Item Value Reference Range Interpretation Comments B/C Ratio (test code = B/C Ratio) 30 6-25 H [facility] HospitalAdmlpdsHHGMEWULJM4757-55-18 21:13:00 Test Item Value Reference Range Interpretation Comments RBC Morph (test code = Normal (08/19/2011 N RBC Morph) 15:13:00) [facility] HospitalRxtqaqsQUQBZMIXWV1748-16-73 21:13:00 Test Item Value Reference Range Interpretation Comments Large Plt (test code = Slight *ABN*(08/19/2011 A Large Plt) 15:13:00) [facility] HospitalWadpxajOXCJPWOWLL7860-45-96 21:13:00 Test Item Value Reference Range Interpretation Comments Atypical Lymphs (test code = Atypical 0.0 N Lymphs) [facility] HospitalLhhfrzxSCWSSQIFFC7123-59-89 21:13:00 Test Item Value Reference Range Interpretation Comments Bands (test code = 0.0 See_Comment N [Automat ed message] The Bands) system which ge nerated this result transmit rohit reference range : <=11.0. The reference r leo was not used to interpr et this result as reji l/abnormal. [facility] CenterMiaewzrMQMUBDOAD2766-45-77 21:13:00 Test Item Value Reference Range Interpretation Comments AST (test code = AST) 23 See_Comment N [Auto mated message] The system which ge nerated this result transmit rohit reference range : <=37. The reference range was not used to interpr et this result as reji l/abnormal. [facility] CenterPrwuhntWKZZZDRUR6177-29-80 21:13:00 Test Item Value Reference Range Interpretation Comments Bili Total (test code = Bili Total) 1.0 0.2-1.3 N [facility] CenterBpfjlltZFXCVBCSW3093-25-86 21:13:00 Test Item Value Reference Range Interpretation Comments Alk Phos (test code = Alk Phos) 115 39-136 N [facility] CenterRnvkfrfYOPTGTHWM6341-02-55 21:13:00 Test Item Value Reference Range Interpretation Comments ALT (test code = ALT) 56 See_Comment N [Auto mated message] The system which ge nerated this result transmit rohit reference range : <=65. The reference range was not used to interpr et this result as reji l/abnormal. [facility] CenterNkcueioEYETAAGMT3181-96-12 21:13:00 Test Item Value Reference Range Interpretation Comments Total Protein (test code = Total 9.0 6.4-8.4 H Protein) [facility] CenterIpzfrxuOEBIIDJEO7686-59-74 21:13:00 Test Item Value Reference Range Interpretation Comments Albumin Lvl (test code = Albumin Lvl) 4.8 3.5-5.0 N [facility] CenterZhyjucmVSLCUUAMH0424-59-65 21:13:00 Test Item Value Reference Range Interpretation Comments Globulin (test code = Globulin) 4.2 2.0-4.0 H [facility] CenterAizztmfWCTKZLKOG5142-91-56 21:13:00 Test Item Value Reference Range Interpretation Comments A/G Ratio (test code = A/G Ratio) 1.1 0.7-1.6 N [facility] CenterWwwiqlrFPNAZYCON1021-17-47 21:13:00 Test Item Value Reference Range Interpretation Comments B/C Ratio (test code = B/C Ratio) 30 6-25 H [facility]XzhkhrbKQRQFRXMTH5180-25-49 21:13:00 Test Item Value Reference Range Interpretation Comments RBC Morph (test code = Normal (08/19/2011 N RBC Morph) 15:13:00) [facility] HospitalLmfrcuzZTWHKQBREY4978-41-55 21:13:00 Test Item Value Reference Range Interpretation Comments Large Plt (test code = Slight *ABN*(08/19/2011 A Large Plt) 15:13:00) [facility] HospitalJtzsdolZVHRMLRSPP4051-15-05 21:13:00 Test Item Value Reference Range Interpretation Comments Atypical Lymphs (test code = Atypical 0.0 N Lymphs) [facility] HospitalYqjgmibHZPWHGYWKO0004-65-08 21:13:00 Test Item Value Reference Range Interpretation Comments Bands (test code = 0.0 See_Comment N [Automat ed message] The Bands) system which ge nerated this result transmit rohit reference range : <=11.0. The reference r leo was not used to interpr et this result as reji l/abnormal. [facility] CenterCegolehMLCMWQBVC3090-81-82 21:13:00 Test Item Value Reference Range Interpretation Comments AST (test code = AST) 23 See_Comment N [Auto mated message] The system which ge nerated this result transmit rohit reference range : <=37. The reference range was not used to interpr et this result as reji l/abnormal. [facility] CenterHuwyvlsMDYQGAGNW3665-94-07 21:13:00 Test Item Value Reference Range Interpretation Comments Bili Total (test code = Bili Total) 1.0 0.2-1.3 N [facility] CenterOxbbwmmSUKPKVHZL9794-11-51 21:13:00 Test Item Value Reference Range Interpretation Comments Alk Phos (test code = Alk Phos) 115 39-136 N [facility] CenterQgzeqdoPGBCZLLTV8752-43-21 21:13:00 Test Item Value Reference Range Interpretation Comments ALT (test code = ALT) 56 See_Comment N [Auto mated message] The system which ge nerated this result transmit rohit reference range : <=65. The reference range was not used to interpr et this result as reji l/abnormal. [facility] CenterPwqxtxqVOKVWLGJN4283-87-90 21:13:00 Test Item Value Reference Range Interpretation Comments Total Protein (test code = Total 9.0 6.4-8.4 H Protein) [facility] CenterRswqewdOFKINADDO1207-83-41 21:13:00 Test Item Value Reference Range Interpretation Comments Albumin Lvl (test code = Albumin Lvl) 4.8 3.5-5.0 N [facility] CenterRtofvntRZTPTWFIZ5812-21-71 21:13:00 Test Item Value Reference Range Interpretation Comments Globulin (test code = Globulin) 4.2 2.0-4.0 H [facility] CenterVjyyzoyEGSJFIWHN6090-47-25 21:13:00 Test Item Value Reference Range Interpretation Comments A/G Ratio (test code = A/G Ratio) 1.1 0.7-1.6 N [facility] CenterExvjppeVBTYVFZFI0606-11-25 21:13:00 Test Item Value Reference Range Interpretation Comments B/C Ratio (test code = B/C Ratio) 30 6-25 H [facility] HospitalVdfdzihFPPJPBLSIM4023-90-55 21:13:00 Test Item Value Reference Range Interpretation Comments RBC Morph (test code = Normal (08/19/2011 N RBC Morph) 15:13:00) [facility] HospitalFvluprzMYXYUFELDK3547-37-99 21:13:00 Test Item Value Reference Range Interpretation Comments Large Plt (test code = Slight *ABN*(08/19/2011 A Large Plt) 15:13:00) [facility] HospitalMnlipycWTJPXSYYPK7285-65-68 21:13:00 Test Item Value Reference Range Interpretation Comments Atypical Lymphs (test code = Atypical 0.0 N Lymphs) [facility] HospitalCchkkufWQUDITAACZ0751-05-03 21:13:00 Test Item Value Reference Range Interpretation Comments Bands (test code = 0.0 See_Comment N [Automat ed message] The Bands) system which ge nerated this result transmit rohit reference range : <=11.0. The reference r leo was not used to interpr et this result as reji l/abnormal. [facility] CenterCxrbcqiZNYJGYCSH5863-79-66 21:13:00 Test Item Value Reference Range Interpretation Comments AST (test code = AST) 23 See_Comment N [Auto mated message] The system which ge nerated this result transmit rohit reference range : <=37. The reference range was not used to interpr et this result as reji l/abnormal. [facility] CenterPuhqlqzEWNZKAMLH8778-18-03 21:13:00 Test Item Value Reference Range Interpretation Comments Bili Total (test code = Bili Total) 1.0 0.2-1.3 N [facility] CenterTowirodDRGBALZLB3647-13-30 21:13:00 Test Item Value Reference Range Interpretation Comments Alk Phos (test code = Alk Phos) 115 39-136 N [facility] CenterQnhaynwBDURHKCVE1175-09-15 21:13:00 Test Item Value Reference Range Interpretation Comments ALT (test code = ALT) 56 See_Comment N [Auto mated message] The system which ge nerated this result transmit rohit reference range : <=65. The reference range was not used to interpr et this result as reji l/abnormal. [facility] CenterKatfaifFJYHBRYCC5537-34-14 21:13:00 Test Item Value Reference Range Interpretation Comments Total Protein (test code = Total 9.0 6.4-8.4 H Protein) [facility] CenterMydduzkKGOTQCNRK7152-02-58 21:13:00 Test Item Value Reference Range Interpretation Comments Albumin Lvl (test code = Albumin Lvl) 4.8 3.5-5.0 N [facility] CenterQdyxqgwCNVSTDEYE1120-16-03 21:13:00 Test Item Value Reference Range Interpretation Comments Globulin (test code = Globulin) 4.2 2.0-4.0 H [facility] CenterHehzqqcOYSFJSQJJ7466-65-48 21:13:00 Test Item Value Reference Range Interpretation Comments A/G Ratio (test code = A/G Ratio) 1.1 0.7-1.6 N [facility] CenterFgzrvmcWCACQVOOK3186-29-95 21:13:00 Test Item Value Reference Range Interpretation Comments B/C Ratio (test code = B/C Ratio) 30 6-25 H [facility] HospitalGnfoltnCZMQZTTNBF3449-45-18 21:13:00 Test Item Value Reference Range Interpretation Comments RBC Morph (test code = Normal (08/19/2011 N RBC Morph) 15:13:00) [facility] HospitalWfrojzsFGEWLEIMTW5917-94-77 21:13:00 Test Item Value Reference Range Interpretation Comments Large Plt (test code = Slight *ABN*(08/19/2011 A Large Plt) 15:13:00) [facility] HospitalYaaciibUBVBAWAVYD6611-83-98 21:13:00 Test Item Value Reference Range Interpretation Comments Atypical Lymphs (test code = Atypical 0.0 N Lymphs) [facility] HospitalBelgbskIBYKHFXZKS6943-21-89 21:13:00 Test Item Value Reference Range Interpretation Comments Bands (test code = 0.0 See_Comment N [Automat ed message] The Bands) system which ge nerated this result transmit rohit reference range : <=11.0. The reference r leo was not used to interpr et this result as reji l/abnormal. [facility] CenterMmpzonoGOAKJMLDB2873-35-02 21:10:00 Test Item Value Reference Range Interpretation Comments O2 Sat Roberth (test code = O2 Sat Roberth) 74.0 40.0-70.0 H [facility] CenterBrzjqqqYMPOULAHO3060-17-49 21:10:00 Test Item Value Reference Range Interpretation Comments Temp Roberth (test code = Temp Roberth) 37.0 [facility] CenterBwzrizaJUFGBNMAN7295-17-79 21:10:00 Test Item Value Reference Range Interpretation Comments pO2 Roberth (test code = pO2 Roberth) 42 20-49 N [facility] CenterSocugyqGYHKIBJVV9479-73-90 21:10:00 Test Item Value Reference Range Interpretation Comments HCO3 Roberth (test code = HCO3 Roberth) 17.3 22.0-26.0 L [facility] CenterSumqntcUPJCMRUBL8695-82-96 21:10:00 Test Item Value Reference Range Interpretation Comments pH Roberth (test code = pH Roberth) 7.34 7.28-7.42 N [facility] CenterWflrwmpMTPWSXLMZ5281-95-92 21:10:00 Test Item Value Reference Range Interpretation Comments pCO2 Roberth (test code = pCO2 Roberth) 32 38-52 L [facility] CenterFttuyysJLOIDLTXM6089-58-10 21:10:00 Test Item Value Reference Range Interpretation Comments BE Roberth (test code = -7 See_Comment L [Automa rohit message] The BE Roberth) system which ge nerated this result transmit rohit reference range : <=2. The reference range was not used to interpr et this result as reji l/abnormal. [facility] CenterCqmfibyCHNIHRGAB4953-47-69 21:10:00 Test Item Value Reference Range Interpretation Comments O2 Sat Roberth (test code = O2 Sat Roberth) 74.0 40.0-70.0 H [facility] CenterZcjyjkcQKPYQGLXN2915-75-99 21:10:00 Test Item Value Reference Range Interpretation Comments Temp Roberth (test code = Temp Roberth) 37.0 [facility] CenterSbqnuhnWAOHRIQEY5563-97-45 21:10:00 Test Item Value Reference Range Interpretation Comments pO2 Roberth (test code = pO2 Roberth) 42 20-49 N [facility] CenterXwskzgsVXXSRXVNW7947-68-70 21:10:00 Test Item Value Reference Range Interpretation Comments HCO3 Roberth (test code = HCO3 Roberth) 17.3 22.0-26.0 L [facility] CenterZlpcyefBSLBNHOCX3223-42-11 21:10:00 Test Item Value Reference Range Interpretation Comments pH Roberth (test code = pH Roberth) 7.34 7.28-7.42 N [facility] CenterMlhvbymCALCJPAFI4629-67-55 21:10:00 Test Item Value Reference Range Interpretation Comments pCO2 Roberth (test code = pCO2 Roberth) 32 38-52 L [facility] CenterQkozbdxHRCJQBNFI4913-81-69 21:10:00 Test Item Value Reference Range Interpretation Comments BE Roberth (test code = -7 See_Comment L [Automa rohit message] The BE Roberth) system which ge nerated this result transmit rohit reference range : <=2. The reference range was not used to interpr et this result as reji l/abnormal. [facility] CenterRojhpvvABCOGONVD3505-15-38 21:10:00 Test Item Value Reference Range Interpretation Comments O2 Sat Roberth (test code = O2 Sat Roberth) 74.0 40.0-70.0 H [facility] CenterPrqazkqZCMSLBNKS9995-54-57 21:10:00 Test Item Value Reference Range Interpretation Comments Temp Roberth (test code = Temp Roberth) 37.0 [facility] CenterSxxzjabWVQUPQXPJ7177-03-13 21:10:00 Test Item Value Reference Range Interpretation Comments pO2 Roberth (test code = pO2 Roberth) 42 20-49 N [facility] CenterTfomquqLJSHQMAZI8700-94-91 21:10:00 Test Item Value Reference Range Interpretation Comments HCO3 Roberth (test code = HCO3 Roberth) 17.3 22.0-26.0 L [facility] CenterIzmkdllUOKPEYFNL7372-65-34 21:10:00 Test Item Value Reference Range Interpretation Comments pH Roberth (test code = pH Roberth) 7.34 7.28-7.42 N [facility] CenterAhxtbqjJADAJUWCI0346-19-52 21:10:00 Test Item Value Reference Range Interpretation Comments pCO2 Roberth (test code = pCO2 Roberth) 32 38-52 L [facility] CenterGmcgimrXMEZRHGXE9116-96-30 21:10:00 Test Item Value Reference Range Interpretation Comments BE Roberth (test code = -7 See_Comment L [Automa rohit message] The BE Roberth) system which ge nerated this result transmit rohit reference range : <=2. The reference range was not used to interpr et this result as reji l/abnormal. [place] 938862-02-29 21:10:00 Test Item Value Reference Range Interpretation Comments O2 Sat Roberth (test code = O2 Sat Roberth) 74.0 40.0-70.0 H [facility] CenterBtvologJMICYEUJQ1359-75-00 21:10:00 Test Item Value Reference Range Interpretation Comments Temp Roberth (test code = Temp Roberth) 37.0 [facility] CenterAqwxbskCSVMMRMTJ2210-84-63 21:10:00 Test Item Value Reference Range Interpretation Comments pO2 Roberth (test code = pO2 Roberth) 42 20-49 N [facility] CenterZuwsojgAWSZCIJEF3316-87-74 21:10:00 Test Item Value Reference Range Interpretation Comments HCO3 Roberth (test code = HCO3 Roberth) 17.3 22.0-26.0 L [facility] CenterNqdlghvGDXBITTFE6517-31-52 21:10:00 Test Item Value Reference Range Interpretation Comments pH Roberth (test code = pH Roberth) 7.34 7.28-7.42 N [facility] CenterIrowslvQPFPMEQMX4495-30-36 21:10:00 Test Item Value Reference Range Interpretation Comments pCO2 Roberth (test code = pCO2 Roberth) 32 38-52 L [facility] CenterXnujshsWQCPMJIOS8357-92-04 21:10:00 Test Item Value Reference Range Interpretation Comments BE Roberth (test code = -7 See_Comment L [Automa rohit message] The BE Roberth) system which ge nerated this result transmit rohit reference range : <=2. The reference range was not used to interpr et this result as reji l/abnormal. [facility]STSKWT3763[facility]-71 20:34:00 Test Item Value Reference Range Interpretation Comments CDC-HIV 1/2 Ab (test Negative *NA*(08/19/2011 code = CDC-HIV 1/2 14:34:00) Ab) [facility]KxkkcpeEZXPIJKSXG4420-53-43 20:34:00 Test Item Value Reference Range Interpretation Comments CDC-HIV 1/2 Ab (test Negative *NA*(08/19/2011 code = CDC-HIV 1/2 14:34:00) Ab) [facility]AhcnadaQHTNBDUFSN3736-04-11 20:34:00 Test Item Value Reference Range Interpretation Comments CDC-HIV 1/2 Ab (test Negative *NA*(08/19/2011 code = CDC-HIV 1/2 14:34:00) Ab) [facility] HospitalTbttwhiTCTGAYRJIH4637-22-12 20:34:00 Test Item Value Reference Range Interpretation Comments CDC-HIV 1/2 Ab (test Negative *NA*(08/19/2011 code = CDC-HIV 1/2 14:34:00) Ab) Shahid Banuelos
--- NOTE | 2022-10-26 16:58 | RAD REPORT ---
EXAM DESCRIPTION: US - UPPER EXTREMITY VENOUS UNILATE - 10/26/2022 3:39 pm CLINICAL HISTORY: Pain COMPARISON: None. TECHNIQUE: Real-time sonographic evaluation of the left upper extremity deep venous system was perfo rmed. FINDINGS: Normal compressibility, flow augmentation, phasic flow and spontaneous flow is identified in the left upper extremity deep venous system. No intraluminal filling defects seen. IMPRESSION: No DVT in the left upper extremity.
[2022-10-26] MEDS ORDERED: METHYLPREDNISOLONE 125 MG INJ ONE (17:50)
[2022-10-26] MEDS ORDERED: ONDANSETRON 4 MG (ODT) TAB ONE (17:51)
[2022-10-26] MEDS ORDERED: KETOROLAC 30 MG/ML INJ ONE (17:51)
[2022-10-26 18:37] LABS: Absolute Lymphocytes (CBC) 1.4 K/uL (0.7-4.9); Hematocrit 33.8 % (36.0-45.0); Lymphocytes % 31.4 % (15.3-44.8); MCV 89.9 fL (80-100); MPV 9.1 fL (7.6-11.3); RBC Red Blood Cell Count 3.75 M/uL (3.86-4.86)
[2022-10-26] MEDS ORDERED: AMLODIPINE 5 MG TAB ONE (18:41)
[2022-10-26] MEDS ORDERED: HYDRALAZINE HCL 25 MG TABLET ONE (18:41)
[2022-10-26 18:53] LABS: Potassium 3.7 mEq/L (3.5-5.1)
[2022-10-26] MEDS ORDERED: CYCLOBENZAPRINE 10 MG TAB ONE (19:45)
--- NOTE | 2022-10-26 21:11 | RAD REPORT ---
EXAM DESCRIPTION: RAD - Shoulder Left 2 View - 10/26/2022 7:40 pm CLINICAL HISTORY: PAIN COMPARISON: No comparisons TECHNIQUE: Internal and external rotation views of the left shoulder were obtained. FINDINGS: There is no fracture or dislocation. AC joint is normal in appearance. No acute or suspici ous findings. IMPRESSION: Negative two-view left shoulder examination.
--- NOTE | 2022-10-26 21:29 | RAD REPORT ---
EXAM DESCRIPTION: US - Upper Ext Artery Uni Jose - 10/26/2022 9:09 pm CLINICAL HISTORY: PAIN COMPARISON: UPPER EXTREMITY VENOUS UNILATE dated 10/26/2022 TECHNIQUE: Left upper extremity arterial Doppler examination was performed with waveform tracing. FINDINGS: Low resistance flow seen in the left CCA. Biphasic waveforms are seen throughout the left upper extremity arterial system to the level of the radial and ulnar arteries. IMPRESSION: No evidence of occlusion. Biphasic waveforms throughout the left upper extremity, may oliveros ggest mild peripheral vascular disease.
--- NOTE | 2022-10-26 21:31 | EDPHYS ---
Physician Documentation [facility] Name: Cathi Zaldivar Age: 42 yrs Sex: Female : 1980 Arrival Date: 10/26/2022 Time: 14:26 Bed 11 Private MD: Jose Miguel Morin ED Physician Avel Kelley HPI: 10/26 15:08 This 42 yrs old Female presents to ER via Ambulatory with complaints of kb Nausea/Vomiting, Arm Pain. 15:08 The patient has not experienced similar symptoms in the past. The patient has not kb recently seen a physician. 15:08 The patient or guardian complains of pain, that is acute, tenderness. The complaints kb affect the left upper arm. Context: The problem was sustained at home, resulted from unknown cause. Onset: The symptoms/episode began/occurred yesterday. Treatment prior to arrival includes: no previous treatment. Modifying factors: The symptoms are alleviated by nothing. the symptoms are aggravated by palpation. Associated signs and symptoms: Pertinent positives: pain, Pertinent negatives: decreased range of motion, swelling. Severity of symptoms: At their worst the symptoms were moderate, in the emergency department the symptoms are unchanged. Pt reports left upper arm pain that started yesterday and was worse this morning. States it feels similar to pain in her leg when she had a blood clot. denies injury or trauma. Also reports nausea and vomiting due to gastroparesis. . [employer]: 14:55 LMP N/A - Irregular menses ap3 Historical: - Allergies: 14:53 ambien; ap3 14:53 Codeine; ap3 14:53 GUAIFENESIN; ap3 14:53 Lisinopril; ap3 14:53 Morphine; ap3 14:53 Nitrofurantoin Macrocrystal; ap3 14:53 PENICILLINS; ap3 14:53 Prolixin; ap3 14:53 zolpidem tartrate; ap3 - PMHx: 14:53 "mental problems"; cardiac arrest; CHF; chronic kidney disease; cyclic vomiting ap3 syndrome; Diabetes - NIDDM; Dialysis; m-w-f; ENCEPHALOPATHY; Gastroparesis; Hypertension; ibs; liver failure; PERIPHERAL NEUROPATHY; pseudo aneurysm R groin; Seizures; - PSHx: 14:53 section; dialysis catheter R chest wall; eye removed; ap3 - Immunization history:: Client reports having NOT received the Covid vaccine. - Social history:: Smoking status: Patient reports the use of cigarette tobacco products, denies chronic smoking, but will smoke occasionally. ROS: 15:07 Constitutional: Negative for fever, chills, and weight loss. kb 15:07 Abdomen/GI: Positive for abdominal pain, nausea and vomiting. 15:07 MS/extremity: Positive for pain, of the left arm. 15:07 All other systems are negative. Exam: 15:07 Constitutional: This is a well developed, well nourished patient who is awake, alert, kb and in no acute distress. Head/Face: Normocephalic, atraumatic. ENT: Moist Mucous membranes Cardiovascular: Regular rate and rhythm with a normal S1 and S2. No gallops, murmurs, or rubs. No pulse deficits. Respiratory: Respirations even and unlabored. No increased work of breathing. Talking in full sentences Skin: Warm, dry with normal turgor. Normal color. Neuro: Awake and alert, GCS 15, oriented to person, place, time, and situation. Moves all extremities. Normal gait. Psych: Awake, alert, with orientation to person, place and time. Behavior, mood, and affect are within normal limits. 15:07 Musculoskeletal/extremity: Extremities: grossly normal except: noted in the left upper arm: pain, tenderness, ROM: intact in all extremities, Circulation is intact in all extremities. Sensation intact. 17:16 Neck: External neck: tenderness, that is mild, of the left mid cervical area and left kb trapezius. Vital Signs: 14:52 Pulse 83; Resp 18; Temp 97.8; Pulse Ox 100% ; Weight 75.75 kg; Height 5 ft. 3 in. ; ap3 Pain 10/10; 18:29 BP 237 / 98; Pulse 88; Resp 20; Pulse Ox 100% on R/A; mb9 20:28 BP 173 / 116; Pulse 89; Resp 18; Pulse Ox 98% on R/A; mb9 21:39 BP 170 / 105; Pulse 81; Resp 16; Pulse Ox 98% on R/A; mb9 14:52 Body Mass Index 29.58 (75.75 kg, 160.02 cm) ap3 14:52 Pain Scale: Adult ap3 MDM: 14:59 Patient medically screened. kb 15:08 Data reviewed: vital signs, nurses notes. kb 17:16 Differential diagnosis: tendonitis, dvt, cervical radiculopathy, strain. Counseling: I maricruz had a detailed discussion with the patient and/or guardian regarding: the historical points, exam findings, and any diagnostic results supporting the discharge/admit diagnosis, radiology results, the need for outpatient follow up, a family practitioner, to return to the emergency department if symptoms worsen or persist or if there are any questions or concerns that arise at home. 21:29 ED course: Pain requesting dilaudid for pain. Dr eKlley and I both discussed use of kb non-narcotic pain management. Dr Kelley recommended norco now and discharge for patient to follow up. 10/26 18:01 Order name: BMP; Complete Time: 18:53 kb 10/26 18:02 Order name: CBC with Diff; Complete Time: 18:40 kb 10/26 20:30 Order name: Troponin High Sensitivity; Complete Time: 21:13 mb9 10/26 15:41 Order name: UPPER EXTREMITY VENOUS UNILATE; Complete Time: 17:05 EDMS 10/26 19:19 Order name: Shoulder Left (2 View) XRAY; Complete Time: 21:13 kb 10/26 20:41 Order name: Upper Ext Artery Uni Jose; Complete Time: 21:31 EDMS 10/26 19:16 Order name: EKG; Complete Time: 19:17 kb 10/26 17:13 Order name: PO challenge; Complete Time: 18:29 kb 10/26 19:16 Order name: EKG - Nurse/Tech; Complete Time: 19:29 kb Administered Medications: 17:58 Drug: Ondansetron PO 4 mg Route: PO; mb9 21:32 Follow up: Response: No adverse reaction mb9 17:58 Drug: MethylPREDNISolone Sodium Succinate IM 125 mg Route: IM; Site: left gluteus; mb9 21:32 Follow up: Response: No adverse reaction mb9 17:58 Drug: Ketorolac IM 30 mg Route: IM; Site: left deltoid; mb9 21:32 Follow up: Response: No adverse reaction mb9 18:37 Drug: HydrALAZINE PO 50 mg Route: PO; mb9 18:38 Drug: amLODIPine PO 5 mg Route: PO; mb9 19:29 Not Given (Patient Refused): fentaNYL (PF) IVP 25 mcg IVP once kd3 19:42 Drug: Cyclobenzaprine PO 10 mg Route: PO; kd3 21:39 Drug: Hydrocodone-Acetaminophen PO (7.5 mg-325 mg) 1 tabs Route: PO; mb9 Disposition: 10/27 02:20 Co-signature as Attending Physician, Avel Kelley MD I agree with the assessment sp4 and plan of care. I reviewed the patient's care provided by Advanced Practice Provider \\T\\ agree w/ the diagnosis \\T\\ care plan. I personally saw the pt \\T\\ performed a substantive portion of the visit, incldng all aspects of the (History/Exam/Medical Decision Making). Disposition Summary: 10/26/22 21:30 Discharge Ordered Location: Home kb Condition: Stable kb Diagnosis - Pain in left upper arm kb Followup: kb - With: Emergency Department - When: As needed - Reason: Worsening of condition Followup: kb - With: Private Physician - When: 2 - 3 days - Reason: Recheck today's complaints, Continuance of care, Re-evaluation by your physician Discharge Instructions: - Discharge Summary Sheet kb - Cervical Radiculopathy, Qotk-zl-Eevd kb Forms: - Medication Reconciliation Form kb - Thank You Letter kb - Antibiotic Education kb - Prescription Opioid Use kb Prescriptions: - Prednisone 20 mg Oral Tablet - take 1 tablet by ORAL route once daily for 5 days; 5 tablet; Refills: 0, kb Product Selection Permitted Signatures: Dispatcher [employer] [facility] Milvia Sanders, [employer]-Radha Celis RN RN willi3 Helen Justin RN RN kd3 Adela Decker RN RN mb9 Avel Kelley MD MD sp4 Corrections: (The following items were deleted from the chart) 10/26 15:41 15:06 Extremity Venous Uni Ltd+[email or web address] ordered. [facility] 17:16 15:07 Constitutional: This is a well developed, well nourished patient who is awake, kb alert, and in no acute distress. Head/Face: Normocephalic, atraumatic. ENT: Moist Mucous membranes Cardiovascular: Regular rate and rhythm with a normal S1 and S2. No gallops, murmurs, or rubs. No pulse deficits. Respiratory: Respirations even and unlabored. No increased work of breathing. Talking in full sentences Skin: Warm, dry with normal turgor. Normal color. Neuro: Awake and alert, GCS 15, oriented to person, place, time, and situation. Moves all extremities. Normal gait. Psych: Awake, alert, with orientation to person, place and time. Behavior, mood, and affect are within normal limits. kb 20:41 20:23 Lower Extremity Artery Uni Ltd+[email or web address] ordered. EDMS EDMS
--- NOTE | 2022-10-26 21:31 | ER ---
Nurse's Notes [facility] Name: Cathi Zaldivar Age: 42 yrs Sex: Female : 1980 Arrival Date: 10/26/2022 Time: 14:26 Bed 11 Private MD: Jose Miguel Morin Diagnosis: Pain in left upper arm Presentation: 10/26 14:52 Chief complaint: Patient states: she started having left arm pain last night, along ap3 with nausea and vomiting. patient states that she was able to take her nausea medication last night and got some rest. patient is crying in triage. Coronavirus screen: At this time, the client does not indicate any symptoms associated with coronavirus-19. Ebola Screen: No symptoms or risks identified at this time. Initial Sepsis Screen: Does the patient meet any 2 criteria? No. Patient's initial sepsis screen is negative. Does the patient have a suspected source of infection? No. Patient's initial sepsis screen is negative. Risk Assessment: Do you want to hurt yourself or someone else? Patient reports no desire to harm self or others. Onset of symptoms was October 25, 2022. 14:52 Method Of Arrival: Ambulatory ap3 14:55 Note patient refusing blood pressure because "it hurts too much". ap3 14:55 Acuity: JESSICA 3 ap3 Triage Assessment: 14:54 General: Appears uncomfortable, Behavior is cooperative, crying. Pain: Complains of ap3 pain in left arm. Neuro: Level of Consciousness is awake, alert, obeys commands, Oriented to person, place, time, situation. Cardiovascular: Patient's skin is warm and dry. Respiratory: Airway is patent Respiratory effort is even, unlabored, Respiratory pattern is regular, symmetrical. GI: Reports nausea, vomiting. Musculoskeletal: Reports pain in left arm. AUTOMAT WATCHER: 14:55 LMP N/A - Irregular menses ap3 Historical: - Allergies: 14:53 ambien; ap3 14:53 Codeine; ap3 14:53 GUAIFENESIN; ap3 14:53 Lisinopril; ap3 14:53 Morphine; ap3 14:53 Nitrofurantoin Macrocrystal; ap3 14:53 PENICILLINS; ap3 14:53 Prolixin; ap3 14:53 zolpidem tartrate; ap3 - PMHx: 14:53 "mental problems"; cardiac arrest; CHF; chronic kidney disease; cyclic vomiting ap3 syndrome; Diabetes - NIDDM; Dialysis; m-w-f; ENCEPHALOPATHY; Gastroparesis; Hypertension; ibs; liver failure; PERIPHERAL NEUROPATHY; pseudo aneurysm R groin; Seizures; - PSHx: 14:53 section; dialysis catheter R chest wall; eye removed; ap3 - Immunization history:: Client reports having NOT received the Covid vaccine. - Social history:: Smoking status: Patient reports the use of cigarette tobacco products, denies chronic smoking, but will smoke occasionally. Screenin:55 Abuse screen: Denies threats or abuse. Nutritional screening: No deficits noted. ap3 Tuberculosis screening: No symptoms or risk factors identified. Assessment: 17:58 General: Appears uncomfortable, Behavior is crying. Pain: Complains of pain in left arm mb9 Pain currently is 10 out of 10 on a pain scale. Quality of pain is described as throbbing, Pain began suddenly. Neuro: Level of Consciousness is awake, alert, obeys commands, Oriented to person, place, time, situation, Appropriate for age. Cardiovascular: Patient's skin is warm and dry. Respiratory: Airway is patent Respiratory effort is even, unlabored, Respiratory pattern is regular, symmetrical. GI: Abdomen is round non-distended, Reports nausea, vomiting. Derm: Skin is pink, warm \\T\\ dry. Musculoskeletal: Range of motion: limited in left arm. 18:20 Reassessment: attempted to contact inside lab to draw pts blood. No answer. mb9 18:30 Reassessment: Notified Tommy CHEATHAM, of pts high BP 237/98. New orders at this time. mb9 20:21 Reassessment: pt states pain has not improved. Tommy CHEATHAM, notified. mb9 21:39 Reassessment: Patient and/or family updated on plan of care and expected duration. Pain mb9 level reassessed. Patient is alert, oriented x 3, equal unlabored respirations, skin warm/dry/pink. Patient states feeling better. Patient states symptoms have improved. Vital Signs: 14:52 Pulse 83; Resp 18; Temp 97.8; Pulse Ox 100% ; Weight 75.75 kg; Height 5 ft. 3 in. ; ap3 Pain 10/10; 18:29 BP 237 / 98; Pulse 88; Resp 20; Pulse Ox 100% on R/A; mb9 20:28 BP 173 / 116; Pulse 89; Resp 18; Pulse Ox 98% on R/A; mb9 21:39 BP 170 / 105; Pulse 81; Resp 16; Pulse Ox 98% on R/A; mb9 14:52 Body Mass Index 29.58 (75.75 kg, 160.02 cm) ap3 14:52 Pain Scale: Adult ap3 ED Course: 14:31 Patient arrived in ED. am2 14:31 Jose Miguel Morin DO is Private Physician. am2 14:55 Arm band placed on right wrist. ap3 14:56 Triage completed. ap3 14:58 Milvia Sanders FNP-C [facility]. kb 14:58 Luis Sandra MD is Attending Physician. kb 15:41 UPPER EXTREMITY VENOUS UNILATE In Process Unspecified. EDMS 17:30 Adela Decker, TABATHA is Primary Nurse. mb9 17:59 Bed in low position. Call light in reach. Side rails up X 1. Client placed on mb9 continuous cardiac and pulse oximetry monitoring. NIBP monitoring applied. 17:59 No provider procedures requiring assistance completed. mb9 18:29 BMP Sent. mb9 18:29 CBC with Diff Sent. mb9 19:42 Shoulder Left (2 View) XRAY In Process Unspecified. EDMS 20:52 Troponin High Sensitivity Sent. kd3 21:09 Upper Ext Artery Uni Jose In Process Unspecified. EDMS 21:12 Attending Physician role handed off by Luis Sandra MD sp4 21:12 Avel Kelley MD is Attending Physician. sp4 21:40 Patient did not have IV access during this emergency room visit. mb9 Administered Medications: 17:58 Drug: Ondansetron PO 4 mg Route: PO; mb9 21:32 Follow up: Response: No adverse reaction mb9 17:58 Drug: MethylPREDNISolone Sodium Succinate IM 125 mg Route: IM; Site: left gluteus; mb9 21:32 Follow up: Response: No adverse reaction mb9 17:58 Drug: Ketorolac IM 30 mg Route: IM; Site: left deltoid; mb9 21:32 Follow up: Response: No adverse reaction mb9 18:37 Drug: HydrALAZINE PO 50 mg Route: PO; mb9 18:38 Drug: amLODIPine PO 5 mg Route: PO; mb9 19:29 Not Given (Patient Refused): fentaNYL (PF) IVP 25 mcg IVP once kd3 19:42 Drug: Cyclobenzaprine PO 10 mg Route: PO; kd3 21:39 Drug: Hydrocodone-Acetaminophen PO (7.5 mg-325 mg) 1 tabs Route: PO; mb9 Medication: 17:59 VIS not applicable for this client. mb9 Outcome: 21:30 Discharge ordered by . kb 21:40 Discharged to home via wheelchair. mb9 21:40 Condition: stable 21:40 Discharge instructions given to patient, Instructed on discharge instructions, follow up and referral plans. Demonstrated understanding of instructions, follow-up care, medications, Prescriptions given X 1. 21:40 Patient left the ED. mb9 Signatures: Dispatcher [employer] EDMS Milvia Sanders, LUIZA-C INDUSTRIAL ENGINEER-CkRadha Mccracken Amanda RN RN ap3 Helen Justin RN RN kd3 Adela Decker RN RN mb9 Avel Kelley MD MD sp4 Corrections: (The following items were deleted from the chart) 14:54 14:52 Chief complaint: Patient states: she started having left arm pain last night, ap3 along with nausea and vomiting. patient states that she was able to take her nausea medication last night and got some rest. ap3
[2022-10-26] MEDS ORDERED: HYDROCODONE/APAP 7.5/325 MG TAB ONE (21:40)
[2022-10-26 22:17] VITALS: TEMP 97.8
[2022-10-26 22:21] VITALS: O2SAT 98
[2022-10-26 22:23] VITALS: BP 170/105
--- NOTE | 2022-10-28 16:01 | EKG ---
Test Date: 2022-10-26 Test Time: 19:26:15 Race Car Driver: HE MEASUREMENT RESULTS: Intervals: Rate: 82 KS: 166 QRSD: 86 QT: 412 QTc: 481 Deshler: P: 69 KS: 166 QRS: 47 T: 63 INTERPRETIVE STATEMENTS: Normal sinus rhythm Prolonged QT Abnormal ECG Compared to ECG 09/02/2022 05:57:53 No significant changes Electronically Signed On 10-28-22 15:57:50 CDT by Juan Hogan
== END 2022-10-26 21:40 | disposition home or self-care (01) ==
LOC: ER 14:26
DX: M79.602 Pain in left arm (principal); R11.2 Nausea with vomiting, unspecified; E11.22 Type 2 diabetes mellitus with diabetic chronic kidney disease; I12.0 Hypertensive chronic kidney disease with stage 5 chronic kidney disease or end stage renal disease; N18.6 End stage renal disease; Z99.2 Dependence on renal dialysis; F17.210 Nicotine dependence, cigarettes, uncomplicated; Z88.0 Allergy status to penicillin; Z88.5 Allergy status to narcotic agent; Z88.8 Allergy status to other drugs, medicaments and biological substances
CPT/HCPCS: 85025; 80048; 36415; 84484; 73030; 93971; 93931; 96372; 99284; Q0162; J2930; 93005

== ENCOUNTER 2022-11-12 20:45 | Emergency (ER) | payer MEDICARE, OTHER ==
--- OUTSIDE RECORDS SUMMARY | 2022-11-12 22:08 | XMS REPORT | Continuity of Care Document ---
:[address] [facility] t Address [address] [facility] [address] [place] [address] Care Team Providers Name Role Phone SHARPLESS Primary Care Physician Unavailable Sanya Attending Clinician Unavailable Nereida_Yared Attending Clinician Unavailable Peg Attending Clinician Unavailable RAJ WEST Attending Clinician Unavailable Jose Miguel Morin DO Attending Clinician Rosy BURNS, Boroke Ricci Attending Clinician [phone] Seth HOGUEC, Bessie Parks Attending Clinician Anthony Forrest Attending Clinician Unavailable Melany Gilbert Attending Clinician Pat BURNS, Sivan Brand Attending Clinician Isra BURNS, Rachel Lew Attending Clinician [phone] Robe BURNS, Holden Elmore Attending Clinician Magaly BURNS, Shanda Higuera Attending Clinician Endy UBRNS, Aurelio Attending Clinician Alesia Dodd Attending Clinician Joe BURNS, Mando Raphael Attending Clinician [phone] Jose Carlos BURNS, Veto Vincent Attending Clinician Kenyatta BURNS, Juwan Attending Clinician Doc BURNS, Sofi Juárez Attending Clinician [phone] Gayle Jones RN Attending Clinician Unavailable Frankie Chowdhury MD Attending Clinician Chandler Silverman Attending Clinician MD RACHEL BRASHER Attending Clinician Unavailable MD SHANDA SHAHID Attending Clinician Unavailable Adelita SAPP, Leah Attending Clinician Unavailable Anand_Eduin Attending Clinician Unavailable Tam MAYS, Maria M Attending Clinician Unavailable Anila Boles MA Attending Clinician Unavailable Sheikh KATY, Tom Attending Clinician Marilu Koch MD Attending Clinician Sukhjinder Medina MD Attending Clinician Hanane Hernandes Attending Clinician MD JUWAN YOU Attending Clinician Unavailable Elodia Coombs RN Attending Clinician Unavailable Doctor Unassigned, [place] Attending Clinician Unavailable MONA BHAT Attending Clinician Unavailable Jose MAYS, Missy Attending Clinician Unavailable Jimena Easton DO Attending Clinician Eze Dias MD Attending Clinician Obed Gray MD Attending Clinician MONISHA BAJWA Attending Clinician Unavailable Monisha Bajwa Attending Clinician Alexandr Diane MD Attending Clinician OZ KIMBLE K.H. Attending Clinician Unavailable HUI WRIGHT Attending Clinician Unavailable Hui Wright Attending Clinician JOSE LUIS GONZALEZ Attending Clinician Unavailable Lamin BURNS, Oz K.H. Attending Clinician Jose Luis Gonzalez MD Attending Clinician Earl Sanchez DO Attending Clinician DEJA SANDOVAL Attending Clinician Unavailable Black CASTANEDAMDeja A Attending Clinician [phone] Pc, Adc Echo Room 1 - Attending [...] Unavailable Adán Horn MD Attending Clinician Outpt-Josy, Aimee Attending Clinician Unavailable Gary Manrique MD Attending Clinician Brandon Holt MD Attending Clinician LY DORADO Attending Clinician Unavailable MOISE BHAKTA Attending Clinician Unavailable Luna Jamison Attending Clinician Joe Juárez Attending Clinician Atul Valdez Attending Clinician Danimoira_b Admitting Clinician Unavailable Nodal_J Admitting Clinician Unavailable Deshazo_T Admitting Clinician Unavailable RACHEL BRASHER Admitting Clinician Unavailable MD RACHEL BRASHER Admitting Clinician Unavailable Adams_R Admitting Clinician Unavailable TOM BARBER Admitting Clinician Unavailable MD JUWAN YOU Admitting Clinician Unavailable Arun Espitia MD, Victor J Admitting Clinician [phone] HUI WRIGHT Admitting Clinician Unavailable Hui Wright Admitting Clinician Rei Waldron Admitting Clinician Unavailable MOISE BHAKTA Admitting Clinician Unavailable Danae Cha Admitting Clinician Joe Juárez Admitting Clinician Payers Payer Name Policy Type Policy Number Effective Date Expiration Date S karla MEDICARE PART A AND [id number] 2014 2021 B 00:00:00 00:00:00 [employer] [facility] [id number] 2020 00:00:00 MEDICARE PART A \\T\\ [id number] 2014 B 00:00:00 MEDICAID OF [place] [id number] 2020 00:00:00 dondeEsta™ [id number] 2021 (MEDICARE 00:00:00 REPLACEMENT HMO) MEDICARE A B [id number] 2014 00:00:00 [place]ID [place] [id number] 2016 00:00:00 Problems Condition Condition Condition Status [...] GASTROPAR Diagnosis Active 2021-02-10 Memoria HELENA/IBS-D ESISI/IBS- -16 21:41:00 l /ANEMIA D/ANEMIA 00:00: Vin Active 00 01/03/2021 [facility] NEW NEW Diagnosis Active 2020-12-24 Mem oria PATIENT GI PATIENT GI 10-14 10:39:00 l CONSULT CONSULT 00:00: Vin REFRACTORY REFRACTORY 00 GASTRO GASTRO Active 10/14/2020 [facility] Malfunctio Malfunctio Disease Active Overview : Univers n of n of 6-03 Formattin ity of arterioven arterioven 00:00: g of this [place] ous ous 00 note Medical dialysis dialysis might be Bran ch fistula, fistula, different initial initial from the encounter encounter original. Added automatic ally from request for surgery [id number] Candidiasi Candidiasi Disease Active U nivers s of vulva s of vulva 2-18 it y of and vagina [place] Screening Screening Disease Active Uni vers for breast for breast 2-18 it y of cancer cancer 00:00: [place] 00 Medical Branch NEW NEW Diagnosis Active 2018-07-26 Mem oria EVALUATION EVALUATION - 09:39:00 l Active 00:00: Vin 07/12/2018 [facility] Pyogenic Pyogenic Disease Active 2017-06 Overview: Un lori granuloma granuloma 0-17 Formattin i ty of of of 00:00: g of this [place] conjunctiv conjunctiv 00 note Me dical a, right a, right might be Bran ch different from the original. 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 Added automatic ally from request for surgery [id number] Diabetes Diabetes Disease Active Metho di mellitus [...] Added automatic ally from request for surgery [id number] Neovascula Neovascula Disease Active U nivers r r 1-18 it[place] of glaucoma, [place], [place] left [place] left [place] Medica l Branch Increased Increased Disease Active Uni vers intraocula intraocula 1-18 it y of r pressure r pressure [place] Fall Fall Disease Active 2016-06 Univers 0-13 ity of 00:00: [place] 00 Medical Branch Pneumonia Pneumonia Disease Active 2016-06 Uni vers 0-11 ity of 00:00: [place] Medical Branch Diabetes Diabetes Disease Active 2016-06 Overview: Un lori mellitus mellitus 0-05 Formattin ity of 00:00: g of this [place] 00 note Medical might be Branch different from the original. Added automatic ally from request for surgery [id number] Pseudotumo Pseudotumo Disease Active U nivers r cerebri r cerebri 9-25 ity of 00:00: [place] Medical Branch Peripheral Peripheral Disease Active U nivers neuropathy neuropathy 7-16 it y of 00:00: [place] [address] Medical Branch Liver Liver Disease Active [facility] failure[facility] Center SANJUANA (acute SANJUANA (acute Disease Recurre [facility] kidney kidney nce 7[facility] injury) injury) 00:00: Medical 00 Center CKD CKD Disease Active [facility] (chronic (chronic [facility] kidney kidney 00:00: Medical disease) disease) 00 Center Acute Acute Disease Active [facility] encephalop encephalop 7-16 Kenyatta kes athy athy 00:00: Medical 00 Center Ulcer of Ulcer of Disease Recurre [facility] toe of toe of nce 7[facility] left foot left foot 00:00: [facility] 00 Center Hyperglyce Hyperglyce Disease Recurre [facility] 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 nce 7-16 Kenyatta kes type 2 type 2 00:00: Medical diabetes diabetes 00 Center mellitus mellitus Gastropare Gastropare Disease Recurre [facility] sis due to sis due to nce 7-16 Kenyatta kes DM DM 00:00: Medical 00 Center Cyclic Cyclic Disease Active [facility] vomiting vomiting [facility] syndrome syndrome 00:00: Medica l 00 Center Anxiety Anxiety Disease Active [facility] Bipolar Bipolar Disease Recurre [facility] disorder disorder nce [facility] Center Hypertensi Hypertensi Disease Active [facility] ve ve 7[facility] emergency emergency 00:00: [facility] 00 Center ACUTE RESP ACUTE Diagnosis Active 2016-09-09 Margi FAILURE RESP 2- 09:11:00 l FAILURE 00:00: Vin Active 00 07/23/2016 [facility] CONGESTION CONGESTIO Diagnosis Active 2016-07-24 Margi AMD N AMD 2- 01:49:00 l DIARRHEA DIARRHEA 00:00: Jake n Active 00 07/23/2016 [facility] Congestive Congestive Disease Active 2015-06 U T heart heart - Health failure failure 00:00: (CHF) (CHF) 00 SOB/SWELLI Diagnosis Active 2015-062016-06-10 Memmarin NG SOB/SWELLI 08-11 15:48:00 l NG Active 00:00: Vin 06/10/2016 00 [facility] CHF/RENAL CHF/RENAL Diagnosis Active 2015-062016-06-24 Memoria DISEASE DISEASE 08-11 15:35:00 l Active 00:00: Vin 06/10/2016 00 [facility] Obesity Obesity Disease Active 2015-06 Univers (BMI (BMI 0-12 ity of 30-39.9) 30-39.9) 00:00: [place] [address] Medical Branch Hyperosmol Hyperosmol Disease Active 2015-06 U jessicaers ar ar 0-12 ity of non-ketoti non-ketoti 00:[place] in c state in 00 Me dical patient patient Branch with 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 Hyperglyce Hyperglyce Disease Active 2015-06 U viviana maryam maryam 0-11 ity of 00:00: [place] [address] Medical Branch Diabetic Diabetic Disease Active Unive rs ulcer of ulcer of 5-07 ity of both feet both [place] 00:[place] associated associated 00 Me dical with type with type Bran ch 2 diabetes 2 diabetes mellitus mellitus SANJUANA (acute SANJUANA (acute Disease Active U jessicaers kidney kidney 5-07 ity of injury) injury) 00:00: [place] [address] Medical Branch Depression Depression Disease Active U nivers 5-07 ity of 00:00: [place] [address] Medical Branch Bipolar 1 Bipolar 1 Disease Active Uni vers disorder disorder 5-07 ity of 00:00: [place] [address] Medical Branch Suicidal Suicidal Disease Active Unive rs ideation ideation 5-05 ity of 00:00: [place] [address] Medical Branch 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, 1.5, 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 Medical [place] Hematuria, Hematuria, Disease Active U viviana undiagnose undiagnose 2-16 it y of d cause d cause 00:00: [place] 00 Medical Branch Cystitis Cystitis Disease Active [...] 00:00: [place] cancer in cancer in 00 [facility] female female Branch Family Family Disease Active 2014-06 Univers history of history of 1-13 it y of ovarian ovarian 00:00: [place] cancer cancer 00 Medical Branch Galactorrh Galactorrh Disease Active 2014-06 U viviana ea ea 1-13 ity of 00:00: [place] [address] Medical Branch History of History of Disease Active 2014-06 U viviana tubal tubal 1-13 ity of ligation ligation 00:00: [place] [address] Medical Branch Excessive Excessive Disease Active 2014-06 Uni vers or or 1-13 ity of frequent frequent 00:00: [place] menstruati menstruati 00 Me dical on on Branch Tobacco Tobacco Disease Active 2014-06 Univers use use 1-13 ity of disorder disorder 00:00: [place] [address] Medical Branch ABDOMINAL ABDOMINAL Diagnosis Active 2014-06-26 Memoria PAIN, PAIN, 06 05:44:00 l SEIZURES SEIZURES 00:00: Jake gonzalez Active 00 06/26/2013 [facility] ABD PAIN ABD PAIN Diagnosis Active 2012-062013-04-19 Memoria Active 0 21:51:00 l 04/14/2013 19:00: Jake gonzalez [facility] [place] GASTROPERI GASTROPER Diagnosis Active 2012-09-13 Memoria SIS DAISY 2-12 15:17:00 l Active 00:00: Vin 08/02/2012 00 [facility] ABDOMINAL ABDOMINAL Diagnosis Active 2012-03-14 Memoria PAIN PAIN 03-14 16:56:00 l Active 14:00: Vin 03/14/2012 00 [facility] NAUSEA, NAUSEA, Diagnosis Active 2012-03-14 Memoria VOMITING VOMITING 03-14 13:25:00 l Active 08:00: Vin 03/14/2012 00 [facility] N/V N/V Diagnosis Active 2011-12-08 Mem oria INABILITY INABILITY 11-27 11:14:00 l TO TO 00:00: [place] TOLERATE TOLERATE 00 PO PO Active 11/28/2011 [facility] VOMITTING VOMITTING Diagnosis Active 2011-11-28 Memoria Active 11-27 16:28:00 l 11/28/2011 00:00: Jake n [address] VOMITTING, VOMITTING Diagnosis [facility] 2011[facility]09-[facility] HIGH BLOOD , HIGH 09-17 09:45:00 l SUGAR BLOOD 00:00: Vin SUGAR 00 Active 09/18/2011 [facility] Methicilli Methicill Problem Active 2021-01-31 Margi n in 08-31 22:29:25 l resistant resistant 00:00: Herm naeem Staphyloco Staphyloco 00 ccus ccus aureus aureus (organism) (organism) Active 09/01/2011 Problem 01/31/2021 09/01/11 - Elbow wound
Problem added by Discern Expert. [facility] MRSA MRSA Problem Active 2012-03-16 Memor ia Active 08-31 09:11:30 l 09/01/2011 00:00: Jake n Problem 00 03/16/2012 <sup>1</oliveros p>09/01/11 - Elbow wound
<sup>2< /sup>Probl em added by Discern Expert. [facility] VOMITING, VOMITING, Diagnosis Active 2011-09-01 Memoria BLOOD BLOOD 08-30 03:19:00 l SUGAR SUGAR 00:00: [place] READINGS READINGS 00 HIGH HIGH Active 08/31/2011 [facility] ELBOW ELBOW Diagnosis Active 2011-09-10 Me moria ABSCESS/HY ABSCESS/HY 08-30 16:26:00 l PERGLYCEMI PERGLYCEMI 00:00: Tyrel canales A A Active 00 08/31/2011 [facility] Hypokalemi Hypokalem Problem Active 2012-03-16 Memoria a ia Active 3- 09:11:30 l 08/23/2011 00:00: Jake gonzalez Problem 00 03/16/2012 [facility] DKA DKA Diagnosis Active 2011-08-24 Mem oria Active 11:27:00 l 08/19/2011 00:00: Jake gonzalez [address] VOMITING VOMITING Diagnosis Active 2011-08-19 Memoria Active 16:21:00 l 08/19/2011 00:00: Jake gonzalez [address] Final: Final: Problem 2016-08-02 Mendoza janice Acute Acute 02:46:22 l respirator respirator He rmann y failure, y failure, unspecifie unspecifie d whether d whether with with hypoxia or hypoxia or hypercapni hypercapni a a 08/02/2016 [facility] Hypoglycem Hypoglyce Problem Inactiv 2012-03-16 Memoria ia maryam e 09:11:30 l Inactive [place] Problem 03/16/2012 [facility] Hypoglycem Hypoglyce Problem Inactiv 2013-04-22 Memoria ia maryam e 04:46:33 l (disorder) (disorder) He rmann Inactive Problem 04/22/2013 [facility] Gastropare Gastropar Problem Resolve 2021-01-31 Memoria sis esis d 22:29:25 l (disorder) (disorder) He rmann Resolved Problem 01/31/2021 [facility] Hypertensi Hypertens Problem Resolve 2021-01-31 Memoria ve montse d 22:29:25 l disorder, disorder, Herm naeem systemic systemic arterial arterial (disorder) (disorder) Resolved Problem 01/31/2021 [facility] Psychiatri Psychiatr Problem Resolve 2021-01-31 Memoria c ic d 22:29:25 l behavioral behavioral He rmann disability disability (finding) (finding) Resolved Problem 01/31/2021 [facility] Seizure Seizure Problem Resolve 2021-01-31 M emoria (finding) (finding) d 22:29:25 l Resolved Vin Problem 01/31/2021 [facility] Hypertensi Hypertens Problem Active 2012-03-16 Memoria on ion Active 09:11:30 l Problem Vin 03/16/2012 [facility] Hypomagnes Hypomagne Problem Active 2013-04-22 Memoria emia semia 04:46:33 l Active Vin Problem 04/22/2013 [facility] Nausea and Nausea Problem Active 2012-03-16 Memoria vomiting and 09:11:30 l vomiting [place] Active Problem 03/16/2012 [facility] ENCNTR FOR ENCNTR Diagnosis Active 2020-12-24 Memoria GENERAL FOR 10:39:00 l ADULT GENERAL [place] MEDICAL ADULT EXAM W/ MEDICAL EXAM W/ Active [facility] DMI DMI Diagnosis Active 2011-08-24 Mem oria KETOACD KETOACD 11:27:00 l UNCONTROLD UNCONTROLD He rmann Active [facility] OTHER OTHER Diagnosis Active 2011-09-10 Mem oria GENERAL GENERAL 16:26:00 l SYMPTOMS SYMPTOMS Jake n Active [facility] HEART HEART Diagnosis Active 2016-06-24 Mem oria FAILURE, FAILURE, 15:35:00 l UNSPECIFIE UNSPECIFIE He rmann D D Active [facility] ACUTE ACUTE Diagnosis Active 2016-09-09 Mem oria RESPIRATOR RESPIRATOR 09:11:00 l Y FAILURE, Y FAILURE, He rmann UNSP W UNSP W HYPOXI HYPOXI Active [facility] Nausea and Nausea Problem Resolve 2021-01-31 2021-01-31 Memoria vomiting and d 6-10 22:29:25 22:29:25 l (disorder) vomiting 00:00: Herm naeem (disorder) 00 Resolved 11/29/2011 Problem 01/31/2021 [facility] Hypokalemi Hypokalem Problem Resolve 2021-01-31 2021-01-31 Memoria a ia d 3-04 22:29:25 22:29:25 l (disorder) (disorder) 00:00: He rmann Resolved 00 08/23/2011 Problem 01/31/2021 [facility] Disorder Disorder Problem Resolve 2021-01-31 2021-01-31 Memoria of of d 3-04 22:29:25 22:29:25 l magnesium magnesium 00:00: Herm naeem metabolism metabolism 00 (disorder) (disorder) Resolved 08/23/2011 Problem 01/31/2021 [facility] Hyperglyce Hyperglyc Problem Resolve 2021-01-31 2021-01-31 Memmarin live d 08-19 22:29:25 22:29:25 l (disorder) (disorder) 00:00: He rmann Resolved 00 08/20/2011 Problem 01/31/2021 [facility] Ketoacidos Ketoacido Problem Resolve 2021-01-31 2021-01-31 Margi is in sis in d 22:29:25 22:29:25 l diabetes diabetes 00:00: Jake gonzalez mellitus mellitus 00 (disorder) (disorder) Resolved 08/19/2011 Problem 01/31/2021 [facility] DKA DKA Problem Resolve 2013-04-22 2013-04-22 Memmarin (diabetic (diabetic d 04:46:33 04:46:33 l ketoacidos ketoacidos 00:00: Tyrel thompson) es) 00 Resolved 08/19/2011 Problem 04/22/2013 [facility] History of Past Illness Condition Condition Condition Status Onset Resolution Last Treating Co mments Source Name Details Category Date Date Treatment Clinician Date Discharge Discharge Problem 2014-06-28 2014-06-28 Blasmarin Diagnosis: Diagnosis: 06-26 16:34:37 16:34:37 l Gastropare Gastropare 06:00: Tyrel canales sis sis 00 06/26/2014 06/28/2014 [facility] Hyperglyce Hyperglyc Problem Inactiv 2012-03-16 2012-03-16 Memmarin maryam live e 08-19 09:11:30 09:11:30 l Inactive 00:00: Vin 08/20/2011 00 Problem 03/16/2012 [facility] Allergies, Adverse Reactions, Alerts Allergy [...] Other Me thodi antoin ty to Comments) 716 reaction( st adverse 00:00: s): liver Hospit [...] Active Other [facility] SIN 01-03 00:00: 00 Guaifene Propensi Active Other - See numbness Univers sin ty to comments 01-03 ity of adverse 00:00: [place] reaction 00 Medical s Branch GUAIFENE DRUG Active Other-Cmnt Univ ers SIN INGREDI 01-03 ity of 00:00: [place] 00 Medical Branch Nitrofur Allergy Active Anaphylaxis Other [place] antoin to 01-03 reaction( Health substanc 00:00: s): liver e 00 failure, Other (see comments) , Other - See commentsL iver failure Reports transient liver disease with nitrofura ntoinRepo rts transient liver disease with nitrofura ntoinLive r failure Reports transient liver disease with nitrofura ntoinLive r failure Liver failure Ketorola Propensi Active Swelling THROAT Meth frantz c ty to 6 st Trometha adverse 00:00: Hospita mine reaction [...] Hives e 00 Lisinopr Propensi Active Other (See 2015-06 Tongue [...] umbnessnu mbnessnum bnessnumb nessnumbn essnumbne ssnumbnes s Prolex Propensi Active Other (See Meth frantz [...] Comments) , Other - See commentsn umbness PROLEX DRUG Active Other-Cmnt Univer s 12-30 [...] of 00:00: [place] 00 Medical Branch penicill Drug Active [facility] lisinopr Drug Active [facility] Ambien Drug Active [facility] Prolixin Drug Active [facility] penicill Drug Active [facility] lisinopr Drug Active [facility] Ambien Drug Active [facility] Prolixin Drug Active [facility] Tape Other Active [facility] penicill Drug Active [facility] lisinopr Drug Active [facility] Ambien Drug Active [facility] Prolixin Drug Active [facility] codeine Drug Active [facility] penicill Drug Active [facility] lisinopr Drug Active [facility] Ambien Drug Active [facility] Prolixin Drug Active [facility] codeine Drug Active [facility] penicill Drug Active [facility] lisinopr Drug Active [facility] Ambien Drug Active [facility] Prolixin Drug Active [facility] penicill Drug Active [facility] lisinopr Drug Active [facility] Ambien Drug Active [facility] Prolixin Drug Active [facility] penicill Drug Active [facility] lisinopr Drug Active [facility] Ambien Drug Active [facility] Prolixin Drug Active [facility] penicill penicill Active Memori a ins ins l Vin codeine codeine Active Memoria l [place] morphine morphine Active Memori a l Vin lisinopr lisinopr Active Memori a il il l Vin Adhesive Adhesive Active Memori a Tape Tape l Vin Ambien Ambien Active Memoria l Vin Prolex Prolex Active Memoria DM DM l Vin Social History Social Habit Start Date Stop Date Quantity Comments Source History of tobacco Cigarette Smoker [facility] Exposure to Yes [facility] SARS-CoV-2 (event) Hospit al Gender identity [facility] Sexual orientation [facility] History of Social 2022-08-25 2022-08-25 [facility] Alcohol intake 2021-06-18 2021-06-18 Ex-drinker [facility] 00:00:00 00:00:00 (finding) Hospital Tobacco use and 2021-05-14 2021-05-14 Smokeless tobacco Me [facility] exposure 00:00:00 00:00:00 non-user Hospital Cigarettes smoked 2021-05-14 2021-05-14 [facility] current (pack per 00:00:00 00:00:00 [facility] day) - Reported Cigarette 2021-05-14 2021-05-14 [facility] pack-years 00:00:00 00:00:00 Hospital Social History 2020-12-24 2020-12-24 [facility] fatou 15:49:37 15:49:37 Tobacco Comment 2017-11-12 2017-11-12 5 cigarettes per [facility] 00:00:00 00:00:00 day Hospital Sex Assigned At [birth year] [facility] 00:00:00 00:00:00 Hospital Smoking Status Start Date Stop Date Source Smokes tobacco daily 2021-05-14 00:00:00 [facility] Former smoker 2020-06-27 00:00:00 2020-06-27 00:00:00 [facility] Medications Ordered Filled Start Stop Current Ordering Indication Dosage Frequency Signature Comments Components Source Medication Medication Date Date Medication? Clinician (SIG) Name Name calcium 2022-0 Yes 1334mg [id number] Take 1,334 Methodi acetate,domingo 1-18 [id number] mg by s t sphat bind, 13:02: 3D mouth 3 Hos whit (Phoslyra) 39 (three) l 667 mg (169 times a mg day. calcium)/5 mL solution cyproheptad 2021-0 Yes 4mg [id number] Take 4 mg Methodi ine 1-18 [id number] by mouth [address] (PERIACTIN) 13:02: 3D (three) Hos whit 4 mg tablet 39 times a l day as needed for allergies. buPROPion 2021-0 Yes 300mg QD Take 300 Met hodi XL 1-[address] ([facility] 13:02: mouth Hospi ta XL) 300 MG 39 daily. l 24 hr tablet ascorbic 2021-0 Yes 500mg Q.[id number] Take 500 [facility] acid, 1-[id number] vitamin C, 13:02: 3D [...] jo-ann 39 l calcium 2021-0 Yes 667mg Q.49102839 Take 667 [facility] acetate 1-[address] (PHOSLO) 13:02: 3D mouth [...] 39 nightly. l calcium 2021-0 Yes 1334mg Q.26746506 Take 1,334 [facility] acetate,domingo 1-18 [id number] mg by s t sphat bind, 13:02: 3D mouth 3 Hos whit (Phoslyra) 39 (three) l 667 mg (169 times a mg day. calcium)/5 mL solution cyproheptad 2021-0 Yes 4mg Q.35773620 Take 4 mg [facility] ine 1-18 [id number] by mouth [address] (PERIACTIN) 13:02: 3D (three) Hos whit 4 mg tablet 39 times a l day as needed for allergies. buPROPion 2021-0 Yes 300mg QD Take 300 Met hodi XL 1-[address] ([facility] 13:02: mouth Hospi ta XL) 300 MG 39 daily. l 24 hr tablet ascorbic 2021-0 Yes 500mg Q.81723279 Take 500 [facility] acid, 1-[address] vitamin C, 13:02: 3D [...] jo-ann 39 l calcium 2021-0 Yes 667mg Q.10948626 Take 667 [facility] acetate 1-[address] (PHOSLO) 13:02: 3D mouth [...] 39 nightly. l calcium 0 Yes 1334mg Q.37973456 Take 1,334 [facility] acetate,domingo 1-18 [id number] mg by s t sphat bind, 13:02: 3D mouth 3 Hos whit (Phoslyra) 39 (three) l 667 mg (169 times a mg day. calcium)/5 mL solution cyproheptad 0 Yes 4mg Q.52469810 Take 4 mg [facility] ine 1-18 [id number] [address] mouth [address] ([facility]CTIN) 13:02: 3D (three) Hos whit 4 mg tablet 39 times a l day as needed for allergies. buPROPion 0 Yes 300mg QD Take 300 Met [facility]odi XL 1-[address] ([facility] 13:02: mouth Hospi ta XL) 300 MG 39 daily. l 24 hr tablet ascorbic 2022-0 Yes 500mg Q.52386431 Take 500 [facility] acid, 1-[address] vitamin C, 13:02: 3D [...] jo-ann 39 l calcium 2022-0 Yes 667mg Q.75090782 Take 667 [facility] acetate 1-[address] (PHOSLO) 13:02: 3D mouth [...] 39 nightly. l calcium 0 Yes 1334mg Q.03276226 Take 1,334 [facility] acetate,domingo 1-18 [id number] mg by s t sphat bind, 13:02: 3D mouth 3 Hos whit (Phoslyra) 39 (three) l 667 mg (169 times a mg day. calcium)/5 mL solution cyproheptad Yes 4mg Q.97532600 Take 4 mg [facility] ine 1-18 [id number] [address] mouth [address] ([facility]IN) 13:02: 3D (three) Hos whit 4 mg tablet 39 times a l day as needed for allergies. buPROPion 0 Yes 300mg QD Take 300 Met hodi XL 1-[address] ([facility] 13:02: mouth Hospi ta XL) 300 MG 39 daily. l 24 hr tablet ascorbic 0 Yes 500mg Q.67797228 Take 500 [facility] acid, 1-[address] vitamin C, 13:02: 3D [...] jo-ann 39 l calcium 2021-0 Yes 667mg Q.96703961 Take 667 [facility] acetate 1-[address] ([facility]OS[facility]) 13:02: 3D mouth [...] 39 nightly. l calcium 2021-0 Yes 1334mg Q.55162039 Take 1,334 [facility] acetate,domingo 1-18 [id number] mg by s t sphat bind, 13:02: 3D mouth 3 Hos whit (Phoslyra) 39 (three) l 667 mg (169 times a mg day. calcium)/5 mL solution cyproheptad 0 Yes 4mg Q.70060375 Take 4 mg [facility] ine 1-18 [id number] [address] mouth [address] ([facility]) 13:02: 3D (three) Hos whit 4 mg tablet 39 times a l day as needed for allergies. buPROPion 2021-0 Yes 300mg QD Take 300 Met [facility]odi XL 1-[address] ([facility] 13:02: mouth Hospi ta XL) 300 MG 39 daily. l 24 hr tablet ascorbic 2021-0 Yes 500mg Q.46671349 Take 500 [facility] acid, 1-[address] vitamin C, 13:02: 3D [...] jo-ann 39 l calcium 2021-0 Yes 667mg Q.78912218 Take 667 [facility] acetate 1-[address] ([facility]OS[facility]) 13:02: 3D mouth [...] 39 nightly. l calcium 2021-0 Yes 1334mg Q.33871484 Take 1,334 [facility] acetate,domingo 1-18 [id number] mg by s t sphat bind, 13:02: 3D mouth 3 Hos whit (Phoslyra) 39 (three) l 667 mg (169 times a mg day. calcium)/5 mL solution cyproheptad 2021-0 Yes 4mg Q.18909088 Take 4 mg [facility] ine 1-18 [id number] [address] mouth [address] ([facility]) 13:02: 3D (three) Hos whit 4 mg tablet 39 times a l day as needed for allergies. buPROPion 2021-0 Yes 300mg QD Take 300 Met [facility]odi XL 1-[address] ([facility] 13:02: mouth Hospi ta XL) 300 MG 39 daily. l 24 hr tablet ascorbic 2021-0 Yes 500mg Q.39087765 Take 500 [facility] acid, 1-[id number] vitamin C, 13:02: 3D [...] jo-ann 39 l calcium 2021-0 Yes 667mg Q.86094949 Take 667 [facility] acetate 1-[id number] ([facility]OS[facility]) 13:02: 3D mouth [...] cholecalcif 2021-0 Yes 5000U Take 5,000 [facility] amnsi, 1-[address] vitamin D3, 13:02: [...] 39 nightly. l calcium 2021-0 Yes 1334mg Q.81637311 Take 1,334 [facility] acetate,domingo 1-18 [id number] mg by s t sphat bind, 13:02: 3D mouth 3 Hos whit (Phoslyra) 39 (three) l 667 mg (169 times a mg day. calcium)/5 mL solution cyproheptad 2021-0 Yes 4mg Q.03899244 Take 4 mg [facility] ine 1-18 [id number] by mouth [address] ([facility]) 13:02: 3D (three) Hos whit 4 mg tablet 39 times a l day as needed for allergies. buPROPion 2021-0 Yes 300mg QD Take 300 Met [facility]odi XL 1-[address] ([facility] 13:02: mouth Hospi ta XL) 300 MG 39 daily. l 24 hr tablet ascorbic 2021-0 Yes 500mg Q.59410807 Take 500 [facility] acid, 1-[id number] vitamin C, 13:02: 3D [...] jo-ann 39 l calcium 2021-0 Yes 667mg Q.34562168 Take 667 [facility] acetate 1-[id number] ([facility]) 13:02: 3D mouth [...] 39 nightly. l calcium 2-0 Yes 1334mg Q.98693844 Take 1,334 [facility] acetate,domingo 1-18 8097893474 mg by s t sphat bind, 13:02: 3D mouth 3 Hos whit (Phoslyra) 39 (three) l 667 mg (169 times a mg day. calcium)/5 mL solution cyproheptad 2021-0 Yes 4mg Q.37748150 Take 4 mg [facility] ine 1-18 [id number] [address] mouth [address] ([facility]) 13:02: 3D (three) Hos whit 4 mg tablet 39 times a l day as needed for allergies. buPROPion 2021-0 Yes 300mg QD Take 300 Met [facility]odi XL 1-[address] ([facility] 13:02: mouth Hospi ta XL) 300 MG 39 daily. l 24 hr tablet ascorbic 2021-0 Yes 500mg Q.[id number] Take 500 [facility] acid, 1-[id number] vitamin C, 13:02: 3D [...] jo-ann 39 l calcium 2021-0 Yes 667mg Q.95647333 Take 667 [facility] acetate 1-[id number] ([facility]) 13:02: 3D mouth [...] 39 nightly. l calcium 2021-0 Yes 1334mg Q.60167291 Take 1,334 [facility] acetate,domingo 1-18 [id number] mg by s t sphat bind, 13:02: 3D mouth 3 Hos whit (Phoslyra) 39 (three) l 667 mg (169 times a mg day. calcium)/5 mL solution cyproheptad 2021-0 Yes 4mg Q.34039268 Take 4 mg [facility] ine 1-18 [id number] by mouth [address] ([facility]) 13:02: 3D (three) Hos whit 4 mg tablet 39 times a l day as needed for allergies. buPROPion 2021-0 Yes 300mg QD Take 300 Met [facility]odi XL 1-[address] ([facility] 13:02: mouth Hospi ta XL) 300 MG 39 daily. l 24 hr tablet ascorbic 2021-0 Yes 500mg Q.16829552 Take 500 [facility] acid, 1-[id number] vitamin C, 13:02: 3D [...] jo-ann 39 l calcium 2021-0 Yes 667mg Q.59989396 Take 667 [facility] acetate 1-[id number] ([facility]OS[facility]) 13:02: 3D mouth [...] 39 nightly. l calcium 2021-0 Yes 1334mg Q.53881737 Take 1,334 [facility] acetate,domingo 1-18 [id number] mg by s t sphat bind, 13:02: 3D mouth 3 Hos whit (Phoslyra) 39 (three) l 667 mg (169 times a mg day. calcium)/5 mL solution cyproheptad 2021-0 Yes 4mg Q.38069516 Take 4 mg [facility] ine 1-18 [id number] by mouth [address] ([facility]) 13:02: 3D (three) Hos whit 4 mg tablet 39 times a l day as needed for allergies. buPROPion 2021-0 Yes 300mg QD Take 300 Met [facility]odi XL 1-[address] ([facility] 13:02: mouth Hospi ta XL) 300 MG 39 daily. l 24 hr tablet ascorbic 2022-0 Yes 500mg Q.80055788 Take 500 [facility] acid, 1-[id number] vitamin C, 13:02: 3D [...] jo-ann 39 l calcium 2022-0 Yes 667mg Q.18293194 Take 667 [facility] acetate 1-[id number] (PHOSLO) 13:02: 3D mouth [...] 39 nightly. l calcium 2021-0 Yes 1334mg Q.13625877 Take 1,334 [facility] acetate,domingo 1-18 [id number] mg by s t sphat bind, 13:02: 3D mouth 3 Hos whit (Phoslyra) 39 (three) l 667 mg (169 times a mg day. calcium)/5 mL solution cyproheptad 2021-0 Yes 4mg Q.46879834 Take 4 mg [facility] ine 1-18 [id number] [address] mouth [address] ([facility]) 13:02: 3D (three) Hos whit 4 mg tablet 39 times a l day as needed for allergies. buPROPion 2021-0 Yes 300mg QD Take 300 Met [facility]odi XL 1-[address] ([facility] 13:02: mouth Hospi ta XL) 300 MG 39 daily. l 24 hr tablet ascorbic 2021-0 Yes 500mg Q.56717073 Take 500 [facility] acid, 1-[id number] vitamin C, 13:02: 3D [...] jo-ann 39 l calcium 2021-0 Yes 667mg Q.08068657 Take 667 [facility] acetate 1-[id number] (PHOSLO) 13:02: 3D mouth [...] 39 nightly. l calcium 0 Yes 1334mg Q.87937207 Take 1,334 [facility] acetate,domingo 1-18 [id number] mg by s t sphat bind, 13:02: 3D mouth 3 Hos whit (Phoslyra) 39 (three) l 667 mg (169 times a mg day. calcium)/5 mL solution cyproheptad 0 Yes 4mg Q.[id number] Take 4 mg [facility] ine 1-18 [id number] [address] mouth [address] ([facility]IN) 13:02: 3D (three) Hos whit 4 mg tablet 39 times a l day as needed for allergies. buPROPion 0 Yes 300mg QD Take 300 Met [facility]odi XL 1-[address] ([facility] 13:02: mouth Hospi ta XL) 300 MG 39 daily. l 24 hr tablet ascorbic 2021-0 Yes 500mg Q.[id number] Take 500 [facility] acid, 1-[id number] vitamin C, 13:02: 3D [...] jo-ann 39 l calcium 2022-0 Yes 667mg Q.33872045 Take 667 [facility] acetate 1-[id number] (PHOSLO) 13:02: 3D mouth [...] 39 nightly. l calcium 2021-0 Yes 1334mg Q.91520904 Take 1,334 [facility] acetate,domingo 1-18 [id number] mg by s t sphat bind, 13:02: 3D mouth 3 Hos whit (Phoslyra) 39 (three) l 667 mg (169 times a mg day. calcium)/5 mL solution cyproheptad 2021-0 Yes 4mg Q.77251698 Take 4 mg [facility] ine 1-18 [id number] [address] mouth [address] ([facility]) 13:02: 3D (three) Hos whit 4 mg tablet 39 times a l day as needed for allergies. buPROPion 2021-0 Yes 300mg QD Take 300 Met hodi XL 1-[address] ([facility] 13:02: mouth Hospi ta XL) 300 MG 39 daily. l 24 hr tablet ascorbic 2021-0 Yes 500mg Q.25492160 Take 500 [facility] acid, 1-[id number] vitamin C, 13:02: 3D [...] jo-ann 39 l calcium 2022-0 Yes 667mg Q.[id number] Take 667 [facility] acetate 1-[id number] (PHOSLO) 13:02: 3D mouth [...] 39 nightly. l calcium 2021-0 Yes 1334mg Q.27409881 Take 1,334 [facility] acetate,domingo 1-18 [id number] mg by s t sphat bind, 13:02: 3D mouth 3 Hos whit (Phoslyra) 39 (three) l 667 mg (169 times a mg day. calcium)/5 mL solution cyproheptad 0 Yes 4mg Q.[id number] Take 4 mg [facility] ine 1-18 [id number] [address] mouth [address] ([facility]IN) 13:02: 3D (three) Hos whit 4 mg tablet 39 times a l day as needed for allergies. buPROPion 0 Yes 300mg QD Take 300 Met hodi XL 1-[address] ([facility] 13:02: mouth Hospi ta XL) 300 MG 39 daily. l 24 hr tablet ascorbic 0 Yes 500mg Q.[id number] Take 500 [facility] acid, 1-[id number] vitamin C, 13:02: 3D [...] jo-ann 39 l calcium 2021-0 Yes 667mg Q.86626037 Take 667 [facility] acetate 1-[id number] (PHOSLO) 13:02: 3D mouth [...] 39 nightly. l calcium 2021-0 Yes 1334mg Q.48720575 Take 1,334 [facility] acetate,domingo 1-18 [id number] mg by s t sphat bind, 13:02: 3D mouth 3 Hos whit (Phoslyra) 39 (three) l 667 mg (169 times a mg day. calcium)/5 mL solution cyproheptad 2-0 Yes 4mg Q.[id number] Take 4 mg [facility] ine 1-18 [id number] [address] mouth [address] ([facility]IN) 13:02: 3D (three) Hos whit 4 mg tablet 39 times a l day as needed for allergies. buPROPion 2022-0 Yes 300mg QD Take 300 Met [facility]odi XL 1-[address] ([facility] 13:02: mouth Hospi ta XL) 300 MG 39 daily. l 24 hr tablet ascorbic 2021-0 Yes 500mg Q.[id number] Take 500 [facility] acid, 1-[id number] vitamin C, 13:02: 3D [...] jo-ann 39 l calcium 2021-0 Yes 667mg Q.[id number] Take 667 [facility] acetate 1-[id number] (PHOSLO) 13:02: 3D mouth [...] 39 nightly. l calcium 2021-0 Yes 1334mg Q.55949400 Take 1,334 [facility] acetate,domingo 1-18 [id number] mg by s t sphat bind, 13:02: 3D mouth 3 Hos whit (Phoslyra) 39 (three) l 667 mg (169 times a mg day. calcium)/5 mL solution cyproheptad 2021-0 Yes 4mg Q.[id number] Take 4 mg [facility] ine 1-18 [id number] [address] mouth [address] ([facility]IN) 13:02: 3D (three) Hos whit 4 mg tablet 39 times a l day as needed for allergies. buPROPion 2021-0 Yes 300mg QD Take 300 Met [facility]odi XL 1-[address] ([facility] 13:02: mouth Hospi ta XL) 300 MG 39 daily. l 24 hr tablet ascorbic 2021-0 Yes 500mg Q.85604106 Take 500 [facility] acid, 1-[id number] vitamin C, 13:02: 3D [...] jo-ann 39 l calcium 2021-0 Yes 667mg Q.[id number] Take 667 [facility] acetate 1-[id number] (PHOSLO) 13:02: 3D mouth [...] 39 nightly. l calcium 2021-0 Yes 1334mg Q.87107851 Take 1,334 [facility] acetate,domingo 1-18 [id number] mg by s t sphat bind, 13:02: 3D mouth 3 Hos whit (Phoslyra) 39 (three) l 667 mg (169 times a mg day. calcium)/5 mL solution cyproheptad 2021-0 Yes 4mg Q.95605574 Take 4 mg [facility] ine 1-18 [id number] [address] mouth [address] ([facility]) 13:02: 3D (three) Hos whit 4 mg tablet 39 times a l day as needed for allergies. buPROPion 2021-0 Yes 300mg QD Take 300 Met [facility]odi XL 1-[address] ([facility] 13:02: mouth Hospi ta XL) 300 MG 39 daily. l 24 hr tablet ascorbic 2022-0 Yes 500mg Q.41423543 Take 500 [facility] acid, 1-[id number] vitamin C, 13:02: 3D [...] jo-ann 39 l calcium 2-0 Yes 667mg Q.58881828 Take 667 [facility] acetate 1-[id number] (PHOSLO) 13:02: 3D mouth [...] 39 nightly. l calcium 0 Yes 1334mg Q.90016150 Take 1,334 [facility] acetate,domingo 1-18 [id number] mg by s t sphat bind, 13:02: 3D mouth 3 Hos whit (Phoslyra) 39 (three) l 667 mg (169 times a mg day. calcium)/5 mL solution cyproheptad 0 Yes 4mg Q.[id number] Take 4 mg [facility] ine -18 [id number] [address] mouth [address] ([facility]IN) 13:02: 3D (three) Hos whit 4 mg tablet 39 times a l day as needed for allergies. buPROPion 0 Yes 300mg QD Take 300 Met hodi XL 1-[address] ([facility] 13:02: mouth Hospi ta XL) 300 MG 39 daily. l 24 hr tablet ascorbic 2021-0 Yes 500mg Q.77917394 Take 500 [facility] acid, 1-[id number] vitamin C, 13:02: 3D [...] jo-ann 39 l calcium 2021-0 Yes 667mg Q.[id number] Take 667 [facility] acetate 1-[id number] (PHOSLO) 13:02: 3D mouth [...] 39 nightly. l calcium 2021-0 Yes 1334mg Q.[id number] Take 1,334 [facility] acetate,domingo 1-18 [id number] mg by s t sphat bind, 13:02: 3D mouth 3 Hos whit (Phoslyra) 39 (three) l 667 mg (169 times a mg day. calcium)/5 mL solution cyproheptad 2021-0 Yes 4mg Q.37512904 Take 4 mg [facility] ine 1-18 [id number] [address] mouth [address] ([facility]) 13:02: 3D (three) Hos whit 4 mg tablet 39 times a l day as needed for allergies. buPROPion 2021-0 Yes 300mg QD Take 300 Met hodi XL 1-[address] ([facility] 13:02: mouth Hospi ta XL) 300 MG 39 daily. l 24 hr tablet ascorbic 2021-0 Yes 500mg Q.47167819 Take 500 [facility] acid, 1-[id number] vitamin C, 13:02: 3D [...] jo-ann 39 l calcium 2022-0 Yes 667mg Q.21430156 Take 667 [facility] acetate 1-[id number] (PHOSLO) 13:02: 3D mouth [...] jo-ann 39 l calcium 2022-0 Yes 667mg Q.[id number] Take 667 [facility] acetate 1-[id number] (PHOSLO) 13:02: 3D mouth [...] 39 nightly. l calcium 2021-0 Yes 1334mg Q.22579275 Take 1,334 [facility] acetate,domingo 1-18 [id number] mg by s t sphat bind, 13:02: 3D mouth 3 Hos whit (Phoslyra) 39 (three) l 667 mg (169 times a mg day. calcium)/5 mL solution cyproheptad 0 Yes 4mg Q.[id number] Take 4 mg [facility] ine 1-18 [id number] [address] mouth [address] ([facility]) 13:02: 3D (three) Hos whit 4 mg tablet 39 times a l day as needed for allergies. buPROPion 0 Yes 300mg QD Take 300 Met hodi XL 1-[address] ([facility] 13:02: mouth Hospi ta XL) 300 MG 39 daily. l 24 hr tablet ascorbic 2021-0 Yes 500mg Q.[id number] Take 500 [facility] acid, 1-[id number] vitamin C, 13:02: 3D [...] mg at night vancomycin 2020-06- No 750mg Q.22170524 Infuse 750 [facility] 750 mg in 07-08 [id number] mg into a [address] sodium 00:00: 05:59 3W venous [facility] chloride 00 :00 catheter 3 l 0.9% 250 mL (three) IVPB times a week for 19 days. Administer 3 times weekly in dialysis vancomycin 2020-06- No 750mg Q.00925505 Infuse 750 [facility] 750 mg in 07-08 [id number] mg into [address] sodium 00:00: 05:59 3[facility] venous [facility] chloride 00 :00 catheter 3 l 0.9% 250 mL (three) IVPB times a week for 19 days. Administer 3 times weekly in dialysis vancomycin 2020-06- No 750mg Q.33520736 Infuse 750 [facility] 750 mg in 07-08 [id number] mg into a [facility] sodium 00:00: 05:59 3[facility] venous [facility] chloride 00 :00 catheter 3 l 0.9% 250 mL (three) IVPB times a week for 19 days. Administer 3 times weekly in dialysis vancomycin 2020-06- No 750mg Q.83442527 Infuse 750 [facility] 750 mg in 07-08 [id number] mg into a [address] sodium 00:00: 05:59 3[facility] venous [facility] chloride 00 :00 catheter 3 l 0.9% 250 mL (three) IVPB times a week for 19 days. Administer 3 times weekly in dialysis vancomycin 2020-06- No 750mg Q.33410697 Infuse 750 [facility] 750 mg in 07-08 [id number] mg into a [address] sodium 00:00: 05:59 3[facility] venous [facility] chloride 00 :00 catheter 3 l 0.9% 250 mL (three) IVPB times a week for 19 days. Administer 3 times weekly in dialysis vancomycin 2020-06- No 750mg Q.58999516 Infuse 750 [facility] 750 mg in 07-08 [id number] mg into a [address] sodium 00:00: 05:59 3[facility] venous [facility] chloride 00 :00 catheter 3 l 0.9% 250 mL (three) IVPB times a week for 19 days. Administer 3 times weekly in dialysis vancomycin 2020-06- No 750mg Q.46927649 Infuse 750 [facility] 750 mg in 07-[id number] mg into a [address] sodium 00:00: 05:59 3[facility] venous [facility] chloride 00 :00 catheter 3 l 0.9% 250 mL (three) IVPB times a week for 19 days. Administer 3 times weekly in dialysis vancomycin 2020-06- No 750mg Q.99453047 Infuse 750 [facility] 750 mg in 07-08 [id number] mg into a [address] sodium 00:00: 05:59 3[facility] venous [facility] chloride 00 :00 catheter 3 l 0.9% 250 mL (three) IVPB times a week for 19 days. Administer 3 times weekly in dialysis vancomycin 2020-06- No 750mg Q.08915371 Infuse 750 [facility] 750 mg in 07-08 [id number] mg into a [facility] sodium 00:00: 05:59 3[facility] venous [facility] chloride 00 :00 catheter 3 l 0.9% 250 mL (three) IVPB times a week for 19 days. Administer 3 times weekly in dialysis vancomycin 2020-06- No 750mg Q.11669914 Infuse 750 [facility] 750 mg in 07-08 [id number] mg into a [address] sodium 00:00: 05:59 3[facility] venous [facility] chloride 00 :00 catheter 3 l 0.9% 250 mL (three) IVPB times a week for 19 days. Administer 3 times weekly in dialysis vancomycin 2020-06- No 750mg Q.70983252 Infuse 750 [facility] 750 mg in 07-08 [id number] mg into a [address] sodium 00:00: 05:59 3[facility] venous [facility] chloride 00 :00 catheter 3 l 0.9% 250 mL (three) IVPB times a week for 19 days. Administer 3 times weekly in dialysis vancomycin 2020-06- No 750mg Q.33434506 Infuse 750 [facility] 750 mg in 07-[id number] mg into a [address] sodium 00:00: 05:59 3W venous [facility] chloride 00 :00 catheter 3 l 0.9% 250 mL (three) IVPB times a week for 19 days. Administer 3 times weekly in dialysis vancomycin 2020-06- No 750mg Q.35886038 Infuse 750 [facility] 750 mg in 07-08 [id number] mg into a [facility] sodium 00:00: 05:59 3[facility] venous [facility] chloride 00 :00 catheter 3 l 0.9% 250 mL (three) IVPB times a week for 19 days. Administer 3 times weekly in dialysis HYDROcodone 2020-06 1{tbl} Q6H Take 1 [facility] -acetaminop 2-19 07-[address] hen ([facility]) 00:00: 05:59 mouth Hosp jo-ann 5-325 mg 00 :00 every 6 l per tablet (six) hours as needed for severe pain for up to 5 days .acute pain. Max Daily Amount: 4 tablets HYDROcodone 2020-06 1{tbl} Q6H Take 1 [facility] -acetaminop 2-19 07- tablet by [facility] hen ([facility]) 00:00: 05:59 mouth Hosp jo-ann 5-325 mg 00 :00 every 6 l per tablet (six) hours as needed for severe pain for up to 5 days .acute pain. Max Daily Amount: 4 tablets HYDROcodone 2020-06 1{tbl} Q6H Take 1 [facility] -acetaminop 2-19 07-[address] hen ([facility]) 00:00: 05:59 mouth Hosp jo-ann 5-325 mg 00 :00 every 6 l per tablet (six) hours as needed for severe pain for up to 5 days .acute pain. Max Daily Amount: 4 tablets HYDROcodone 2020-06 1{tbl} Q6H Take 1 [facility] -acetaminop 2-29 -[address] hen ([facility]) 00:00: 05:59 mouth Hosp jo-ann 5-325 mg 00 :00 every 6 l per tablet (six) hours as needed for severe pain for up to 5 days .acute pain. Max Daily Amount: 4 tablets HYDROcodone 2020-06 1{tbl} Q6H Take 1 [facility] -acetaminop 2-29 -[address] hen ([facility]) 00:00: 05:59 mouth Hosp jo-ann 5-325 mg 00 :00 every 6 l per tablet (six) hours as needed for severe pain for up to 5 days .acute pain. Max Daily Amount: 4 tablets HYDROcodone 2020-06 1{tbl} Q6H Take 1 [facility] -acetaminop 2-29 -[address] hen ([facility]) 00:00: 05:59 mouth Hosp jo-ann 5-325 mg 00 :00 every 6 l per tablet (six) hours as needed for severe pain for up to 5 days .acute pain. Max Daily Amount: 4 tablets HYDROcodone 2020-06 1{tbl} Q6H Take 1 [facility] -acetaminop 2-29 -[address] hen ([facility]) 00:00: 05:59 mouth Hosp jo-ann 5-325 mg 00 :00 every 6 l per tablet (six) hours as needed for severe pain for up to 5 days .acute pain. Max Daily Amount: 4 tablets HYDROcodone 2020-06 1{tbl} Q6H Take 1 [facility] -acetaminop 2-29 -[address] hen ([facility]) 00:00: 05:59 mouth Hosp jo-ann 5-325 mg 00 :00 every 6 l per tablet (six) hours as needed for severe pain for up to 5 days .acute pain. Max Daily Amount: 4 tablets HYDROcodone 2020-06 1{tbl} Q6H Take 1 [facility] -acetaminop 2-29 -[address] hen ([facility]) 00:00: 05:59 mouth Hosp jo-[facility] 5-325 mg 00 :00 every 6 l per tablet (six) hours as needed for severe pain for up to 5 days .acute pain. Max Daily Amount: 4 tablets HYDROcodone 2020-06 1{tbl} Q6H Take 1 [facility] -acetaminop 2-29 -[address] hen ([facility]) 00:00: 05:59 mouth Hosp jo-[facility] 5-325 mg 00 :00 every 6 l per tablet (six) hours as needed for severe pain for up to 5 days .acute pain. Max Daily Amount: 4 tablets HYDROcodone 2020-06 1{tbl} Q6H Take 1 [facility] -acetaminop 2-29 -[address] hen ([facility]) 00:00: 05:59 mouth Hosp jo-[facility] 5-325 mg 00 :00 every 6 l per tablet (six) hours as needed for severe pain for up to 5 days .acute pain. Max Daily Amount: 4 tablets HYDROcodone 2020-06- [place] [address] 1{tbl} Q6H Take 1 [facility] -acetaminop 2-19 07- tablet by [facility] hen ([facility]) 00:00: 05:59 mouth [facility]osp jo-[facility] 5-325 mg 00 :00 every 6 l per tablet (six) hours as needed for severe pain for up to 5 days .acute pain. Max Daily Amount: 4 tablets HYDROcodone 2020-06- [place] 30011 1{tbl} Q6H Take 1 [facility] -acetaminop -19 07- tablet by [facility] hen ([facility]) 00:00: 05:59 mouth [facility]osp jo-[facility] 5-325 mg [...] 2-05 12-13 tablets by s cyril balderas ([facility]) 00:00: 05:59 mouth Hosp jo-ann 5-325 mg 00 :00 every 8 l per tablet (eight) hours as needed for severe pain for up to 7 days .acute pain. Max Daily Amount: 6 tablets HYDROcodone 2020-0628 2{tbl} Q8H Take 2 [facility] -acetaminop 2-05 12-13 tablets by s cyril hen ([facility]) 00:00: 05:59 mouth Hosp jo-[facility] 5-325 mg 00 :00 every 8 l per tablet (eight) hours as needed for severe pain for up to 7 days .acute pain. Max Daily Amount: 6 tablets HYDROcodone 2020-0628 2{tbl} Q8H Take 2 [facility] -acetaminop 2-05 12-13 tablets by s cyril hen ([facility]) 00:00: 05:59 mouth Hosp jo-[facility] 5-325 mg 00 :00 every 8 l per tablet (eight) hours as needed for severe pain for up to 7 days .acute pain. Max Daily Amount: 6 tablets HYDROcodone 2020-0628 2{tbl} Q8H Take 2 [facility] -acetaminop 2-05 12-13 tablets by s t hen ([facility]) 00:00: 05:59 mouth [facility]osp jo-[facility] 5-325 mg 00 :00 every 8 l per tablet (eight) hours as needed for severe pain for up to 7 days .acute pain. Max Daily Amount: 6 tablets HYDROcodone 2020-06 09357 2{tbl} Q8H Take 2 [facility] -acetaminop 2-05 12-13 tablets by s t hen ([facility]) 00:00: 05:59 mouth Hosp jo-[facility] 5-325 mg 00 :00 every 8 l per tablet (eight) hours as needed for severe pain for up to 7 days .acute pain. Max Daily Amount: 6 tablets HYDROcodone 2020-0628 2{tbl} Q8H Take 2 [facility] -acetaminop 2-05 12-13 tablets by s t hen ([facility]) 00:00: 05:59 mouth [facility]osp jo-[facility] 5-325 mg 00 :00 every 8 l per tablet (eight) hours as needed for severe pain for up to 7 days .acute pain. Max Daily Amount: 6 tablets HYDROcodone 2020-06 2{tbl} Q8H Take 2 Methodi -acetaminop 2-05 12-13 tablets by s t hen ([facility]) 00:00: 05:59 [facility] 5-325 mg 00 :00 every 8 l per tablet (eight) hours as needed for severe pain for up to 7 days .acute pain. Max Daily Amount: 6 tablets HYDROcodone 2020-0628 2{tbl} Q8H Take 2 Methodi -acetaminop 2-05 12-13 tablets by s t hen ([facility]) 00:00: 05:59 [facility] 5-325 mg 00 :00 every 8 l per tablet (eight) hours as needed for severe pain for up to 7 days .acute pain. Max Daily Amount: 6 tablets HYDROcodone 2020-06 2{tbl} Q8H Take 2 Methodi -acetaminop 2-05 12-13 tablets by s t hen (Balaya) 00:00: 05:59 mouth [facility] 5-325 mg 00 :00 every 8 l per tablet (eight) hours as needed for severe pain for up to 7 days .acute pain. Max Daily Amount: 6 tablets HYDROcodone 2020-06 No [id number] 2{tbl} Q8H Take 2 Methodi -acetaminop 2-05 12-13 tablets by s t hen (Balaya) 00:00: 05:59 mouth [facility] 5-325 mg 00 :00 every 8 l per tablet (eight) hours as needed for severe pain for up to 7 days .acute pain. Max Daily Amount: 6 tablets HYDROcodone 2020-06 No [id number] 2{tbl} Q8H Take 2 [facility]i -acetaminop 2-05 12-13 tablets by s t hen (Balaya) 00:00: 05:59 mouth [facility] 5-325 mg 00 :00 every 8 l per tablet (eight) hours as needed for severe pain for up to 7 days .acute pain. Max Daily Amount: 6 tablets predniSONE 2020-06- No [id number] Take M ethodi (DELTASONE) 07-18 12-05 Prednisone s t 50 mg 00:00: 00:00 50mg 13 Hospita tablet 00 :00 hours, 7 l hours, and 1 hour prior to scheduled procedure on 05/19/2021 for contrast allergy prophylaxi s. predniSONE 2020-06- No [id number] Take M ethodi (DELTASONE) 07-18 1205 Prednisone s t 50 mg 00:00: 00:00 50mg 13 Hospita tablet 00 :00 hours, 7 l hours, and 1 hour prior to scheduled procedure on 05/19/2021 for contrast allergy prophylaxi s. predniSONE 2020-06- No [id number] Take M ethodi (DELTASONE) 07-18 12-05 Prednisone s t 50 mg 00:00: 00:00 50mg 13 Hospita tablet 00 :00 hours, 7 l hours, and 1 hour prior to scheduled procedure on 05/19/2021 for contrast allergy prophylaxi s. predniSONE 2020-06- No [id number] Take M ethodi (DELTASONE) 07-18 12-05 Prednisone s t 50 mg 00:00: 00:00 50mg 13 Hospita tablet 00 :00 hours, 7 l hours, and 1 hour prior to scheduled procedure on 05/19/2021 for contrast allergy prophylaxi s. predniSONE 2020-06- No [id number] Take M ethodi (DELTASONE) 07-18 12-05 Prednisone s t 50 mg 00:00: 00:00 50mg 13 Hospita tablet 00 :00 hours, 7 l hours, and 1 hour prior to scheduled procedure on 05/19/2021 for contrast allergy prophylaxi s. predniSONE 2020-06- No [id number] Take M ethodi (DELTASONE) 07-18 12-05 Prednisone s t 50 mg 00:00: 00:00 50mg 13 Hospita tablet 00 :00 hours, 7 l hours, and 1 hour prior to scheduled procedure on 05/19/2021 for contrast allergy prophylaxi s. predniSONE 2020-06- No [id number] Take M ethodi (DELTASONE) 07-18 12-05 Prednisone s t 50 mg 00:00: 00:00 50mg 13 Hospita tablet 00 :00 hours, 7 l hours, and 1 hour prior to scheduled procedure on 05/19/2021 for contrast allergy prophylaxi s. predniSONE 2020-06- No [id number] Take M ethodi (DELTASONE) 07-18 12-05 Prednisone s t 50 mg 00:00: 00:00 50mg 13 Hospita tablet 00 :00 hours, 7 l hours, and 1 hour prior to scheduled procedure on 05/19/2021 for contrast allergy prophylaxi s. predniSONE 2020-06- No [id number] Take M ethodi (DELTASONE) 07-18 12-05 Prednisone s t 50 mg 00:00: 00:00 50mg 13 Hospita tablet 00 :00 hours, 7 l hours, and 1 hour prior to scheduled procedure on 05/19/2021 for contrast allergy prophylaxi s. predniSONE 2020-06- No [id number] Take M ethodi (DELTASONE) 07-18 12-05 Prednisone [...] by ity of Vitamin D3, 11:08: [facility]. [facility] 01 Medical (5,000 Branch unit) tablet proMETHazin 2020-06 Yes 25mg Take 25 mg Univers e 25 mg 0-03 by mouth. ity of tablet 11:08: [place] [id number] Medical Branch aspirin 81 2020-06 Yes 81mg Take 1 Unive rs mg chewable 0-03 tablet by ity of tablet 11:08: mouth [place] 01 daily. Medical Branch divalproex 2020-06 Yes 500mg Take 500 Un lori ER 0-01 mg by ity of (DEPAKOTE 23:08: mouth 2 [place] ER) 500 mg 36 (two) Medical 24 hr times Branch tablet daily. gabapentin 2020-06 Yes 100mg Take 100 Un lori 100 mg 0-01 mg by ity of capsule 23:08: mouth 2 [place] [address] (two) Medical times Branch daily. vitamin C 2020-06 Yes 2000mg Take 2,000 Univers with sia 0-01 mg by ity of hips 23:08: mouth 2 [place] (VITAMIN C) 36 (two) Medical 1,000 mg times Branch tablet daily. metoprolol 2020-06 Yes 50mg Take 50 mg U nivers tartrate 50 0-01 by mouth ity of mg tablet 23:08: daily. [address] folic 2020-06 Yes 800mg Take 800 Univers acid/vit B 0-01 mg by ity of complex and 23:08: mouth [place] C 36 daily. Medical (DIALYVITE Branch 800 ORAL) linagliptin 2020-06 Yes Take by Uni vers (TRADJENTA) 0-01 mouth. ity of 5 mg tablet 23:08: [address] Branch spironolact 2020-06 Yes 50mg Take 50 mg Univers one 50 mg 0-01 by mouth ity of tablet 23:08: daily. [address] Branch pravastatin 2020-06 Yes 40mg Take 40 mg Univers 40 mg 0-01 by mouth ity of tablet 23:08: daily. [address] mv-mn/iron/ 2020-06 Yes 1{capsu Take 1 U nivers folic 0-01 le} capsule by ity of acid/herb 23:08: mouth [place] 190 36 daily. Medical (VITAMIN D3 Branch COMPLETE ORAL) SERTraline 2020-06 Yes 50mg Take 50 mg U nivers 50 mg 0-01 by mouth ity of tablet 23:08: daily. [place] [address] Medical Branch calcium 2020-06 Yes 667mg Take [...] mouth 2 ity of tablet 23:08: (two) [place] [address] times Medical daily. Branch divalproex 2020-06 Yes 500mg Take 500 Un lori ER 0-01 mg by ity of (DEPAKOTE 23:08: mouth 2 [place] ER) 500 mg 36 (two) Medical 24 hr times Branch tablet daily. gabapentin 2020-06 Yes 100mg Take 100 Un lori 100 mg 0-01 mg by ity of capsule 23:08: mouth 2 [place] (two) Medical times Branch daily. vitamin C 2020-06 Yes 2000mg Take 2,000 Univers with sia 0-01 mg by ity of hips 23:08: mouth 2 [place] (VITAMIN C) 36 (two) Medical 1,000 mg times Branch tablet daily. metoprolol 2020-06 Yes 50mg Take 50 mg U nivers tartrate 50 0-01 by mouth ity of mg tablet 23:08: daily. [place] [address] Medical Branch folic 2020-06 Yes 800mg Take 800 Univers acid/vit B 0-01 mg by ity of complex and 23:08: mouth [place] C 36 daily. Medical (DIALYVITE Branch 800 ORAL) linagliptin 2020-06 Yes Take by Uni vers (TRADJENTA) 0-01 mouth. ity of 5 mg tablet 23:08: [place] [address] Medical Branch spironolact 2020-06 Yes 50mg Take 50 mg Univers one 50 mg 0-01 by mouth ity of tablet 23:08: daily. [place] [address] Medical Branch pravastatin 2020-06 Yes 40mg Take 40 mg Univers 40 mg 0-01 by mouth ity of tablet 23:08: daily. [place] [address] Medical Branch mv-mn/iron/ 2020-06 Yes 1{capsu Take 1 U nivers folic 0-01 le} capsule by ity of acid/herb 23:08: mouth [place] 190 36 daily. Medical (VITAMIN D3 Branch COMPLETE ORAL) SERTraline 2020-06 Yes 50mg Take 50 mg U nivers 50 mg 0-01 by mouth ity of tablet 23:08: daily. [place] [address] Medical Branch calcium 2020-06 Yes 667mg Take [...] - to exceed l de 50 MG 11:14: 400mg/day. Her braden Oral Tablet 00 (Same As: Ultram) Simethicone No Notes: Mendo[place] janice 8-11 (Same as: l 01:36: Mylicon) [place] 00 Simethicone No Notes: Mendoza janice 8-11 [...] = 1 mL, l 1999 19:37: IV, [place] units/mL 00 Q-M-W-F, preservativ to be e-free given at injectable post solution Dialysis sessions, 0 Refill(s) epoetin Yes 2,000 unit Mendoza janice giovanny-epbx 8-10 = 1 mL, l 1999 19:37: IV, [place] units/mL 00 Q-M-W-F, preservativ to be e-free given at injectable post solution Dialysis sessions, 0 Refill(s) epoetin Yes 2,000 unit M[place] janice giovanny-epbx 8-10 = 1 mL, l 1999 19:37: IV, [place] units/mL 00 Q-M-W-F, preservativ to be e-free [...] tab, PO, l tablet 19:33: BID, 0 [place] 00 Refill(s) buPROPion Yes 75 mg = 1 Mem oria 75 mg oral 8-10 tab, PO, l tablet 19:33: Daily, # [place] 00 14 tab, 0 Refill(s) amLODIPine Yes [...] Daily, # 14 tab, 0 Refill(s) amLODIPine 0 Yes 10 mg = 1 Me moria 10 mg oral 8-10 tab, PO, l tablet 19:33: Daily, # 30 tab, 2 Refill(s) busPIRone 2020-0 Yes [...] Daily, # 30 tab, 2 Refill(s) busPIRone 2020-0 Yes 7.5 mg = 1 Me moria 7.5 mg oral 8-10 tab, PO, l tablet 19:33: BID, 0 [place] 00 Refill(s) buPROPion 2020-0 Yes 75 mg = 1 Mem oria 75 mg oral 8-10 tab, PO, l tablet 19:33: Daily, # [place] 00 14 tab, 0 Refill(s) Norvasc No Notes: Memoria 8-10 (Same as: l 17:35: Norvasc) [place] 00 Norvasc No Notes: Memoria 8-10 (Same as: l 17:35: Norvasc) Vin 00 Norvasc No Notes: Memoria 8-10 (Same as: l 17:35: Norvasc) [place] 00 Norvasc No Notes: Memoria 8-10 (Same as: l 17:35: Norvasc) Vin 00 Norvasc No Notes: Memoria 8-10 (Same [...] = 50 mL, 0 Epogen No Notes: oria 01-27 WASTE: F/P l 22:00: - Red; E Vin Red MEDICIATIO N WASTE Product Size: 2,000 unit Product Wasted: ____unit Epogen No Notes: oria 01-27 WASTE: F/P l 22:00: - Red; E Vin Red MEDICIATIO N WASTE Product Size: 2,000 unit Product Wasted: ____unit Epogen No Notes: oria 01-27 WASTE: F/P l 22:00: - Red; E Vin Red MEDICIATIO N WASTE Product Size: 2,000 unit Product Wasted: ____unit Epogen No Notes: 01-27 WASTE: F/P l 22:00: - Red; E Vin 00 Red MEDICIATIO N WASTE Product Size: 2,000 unit Product Wasted: ____unit Epogen No Notes: oria 01-27 WASTE: F/P l 22:00: - Red; Carlos Banuelos Red MEDICIATIO N WASTE Product Size: 2,000 unit Product Wasted: ____unit D5NS 1,000 No 1,000 mL, Me moria mL 01-27 Rate: 20 l 20:28: ml/hr, Vin Infuse over: 50 hr, Route: IV, Dosing Weight 74.5 kg, Total Volume: 1,000, Start date: 01/27/21 15:28:00 CDT, Duration: 30 day, Stop date: 02/26/21 15:27:00 CDT, BSA: 1.79 m2, 0 D5NS 1,000 2021-0 No 1,000 mL, Me moria mL 01-27 Rate: 20 l 20:28: ml/hr, Vin 00 Infuse over: 50 hr, Route: IV, Dosing Weight 74.5 kg, Total Volume: 1,000, Start date: 01/27/21 15:28:00 CDT, Duration: 30 day, Stop date: 02/26/21 15:27:00 CDT, BSA: 1.79 m2, 0 D5NS 1,000 2020-0 No 1,000 mL, Me moria mL 01-27 Rate: 20 l 20:28: ml/hr, [place] 00 Infuse over: 50 hr, Route: IV, Dosing Weight 74.5 kg, Total Volume: 1,000, Start date: 01/27/21 15:28:00 CDT, Duration: 30 day, Stop date: 02/26/21 15:27:00 CDT, BSA: 1.79 m2, 0 D5NS 1,000 2020-0 No 1,000 mL, Me moria mL 01-27 Rate: 20 l 20:28: ml/hr, Vin 00 Infuse over: 50 hr, Route: IV, Dosing Weight 74.5 kg, Total Volume: 1,000, Start date: 01/27/21 15:28:00 CDT, Duration: 30 day, Stop date: 02/26/21 15:27:00 CDT, BSA: 1.79 m2, 0 D5NS 1,000 2020-0 No 1,000 mL, Me moria mL 01-27 Rate: 20 l 20:28: ml/hr, [place] 00 Infuse over: 50 hr, Route: IV, Dosing Weight 74.5 kg, Total Volume: 1,000, Start date: 01/27/21 15:28:00 CDT, Duration: 30 day, Stop date: 02/26/21 15:27:00 CDT, BSA: 1.79 m2, 0 Tylenol 2021-0 No Notes: Do Memor ia 01-27 not exceed l 09:29: 4 gm/day. [place] 00 (Same as: Tylenol) tramadol No Notes: [...] Notes: Memoria 01-27 porcine l 02:00: heparin [place] 00 heparin No Notes: Memoria 01-27 porcine l 02:00: heparin [place] 00 heparin No Notes: Memoria 01-27 porcine l 02:00: heparin [place] 00 heparin No Notes: Memoria 01-27 porcine l 02:00: heparin [place] 00 heparin No Notes: Memoria 8- porcine l 02:00: heparin [place] 00 Magnesium No Notes: Memori a Oxide 8- (Same as: l 22:54: Mag-Ox [place] 00 400) Magnesium oxide 217kl=403d g elemental magnesium Dose=____m g magnesium oxide (___mg elemental magnesium) Magnesium No Notes: Memori a Oxide 8- (Same as: l 22:54: Mag-Ox [place] 00 400) Magnesium oxide 602zw=597k g elemental magnesium Dose=____m g magnesium oxide (___mg elemental magnesium) Magnesium No Notes: Memori a Oxide - (Same as: l 22:54: Mag-Ox [place] 00 400) Magnesium oxide 460la=173g g elemental magnesium Dose=____m g magnesium oxide (___mg elemental magnesium) Magnesium No Notes: Memori a Oxide - (Same as: l 22:54: Mag-Ox [place] 00 400) Magnesium oxide 552wh=550g g elemental magnesium Dose=____m g magnesium oxide (___mg elemental magnesium) Magnesium No Notes: Memori a Oxide - (Same as: l 22:54: Mag-Ox [place] 00 400) Magnesium oxide 983un=154m g elemental magnesium Dose=____m g magnesium oxide (___mg elemental magnesium) Coreg No Notes: Memoria 8-05 Give with l 02:00: food. [place] 00 (Same As: Coreg) Coreg No Notes: Memoria 8-05 Give with l 02:00: food. [place] 00 (Same As: Coreg) Coreg No Notes: Memoria 8-05 Give with l 02:00: food. Vin 00 (Same As: Coreg) Coreg No Notes: Memoria 8-05 Give with l 02:00: food. [place] 00 (Same As: Coreg) Coreg No Notes: Memoria 8-05 Give with l 02:00: food. [place] 00 (Same As: Coreg) Buspar No Notes: Memoria 8- (Same As: l 22:00: BuSpar) [place] 00 Buspar No Notes: Memoria 8-04 (Same As: l 22:00: BuSpar) [place] 00 Buspar No Notes: Memoria 8-04 (Same As: l 22:00: BuSpar) Vin 00 Buspar No Notes: Memoria 8-04 (Same As: l 22:00: BuSpar) Vin 00 Buspar No Notes: Memoria 8-04 (Same As: l 22:00: BuSpar) [place] 00 Fentanyl No Notes: Memoria 8-04 (Same as: l 21:06: Sublimaze) Preservat montse free. Fentanyl No Notes: Memoria 8-04 (Same as: l 21:06: Sublimaze) [place] 00 Preservati ve free. Fentanyl No Notes: Memoria 8-04 (Same as: l 21:06: Sublimaze) Vin 00 Preservati ve free. Fentanyl No Notes: Memoria 8-04 (Same as: l 21:06: Sublimaze) Vin 00 Preservati ve free. Fentanyl No Notes: Memoria 8-04 (Same as: l 21:06: Sublimaze) Vin 00 Preservati ve free. Norvasc No Notes: Memoria 8-04 (Same as: l 16:47: Norvasc) Norvasc No Notes: Memoria 8-04 (Same as: l 16:47: Norvasc) Vin 00 Norvasc No Notes: Memoria 8-04 (Same as: l 16:47: Norvasc) Vin 00 Norvasc No Notes: Memoria 8-04 (Same as: l 16:47: Norvasc) [place] 00 Norvasc No Notes: Memoria 8-04 (Same [...] 00 24 HR No Notes: Memoria Divalproex - Hazardous l Sodium 500 14:00: Drug Group H ermann MG Extended 00 2:Non-anti Release neoplastic Tablet Hazardous [Depakote] Drug -- Refer to safe handling procedure PPE Matrix (Same as: Depakote ER) Once daily dosing; indicated for migraines. Divalproex sodium extended-r elease tab. Do not chew or crush. Doxazosin No Notes: Memori a -04 (Same as: l 14:00: Cardura) Furosemide No [...] CDT Metoprolol No Notes: Memor ia Succinate -04 (Same as: l ER 100 mg 14:00: [...] 00 24 HR No Notes: Memoria Divalproex 8 Hazardous l Sodium 500 14:00: Drug Group [...] l Tablet 14:00: Lasix) May Nidia nn cause GI upset. Give with food or milk. Tradjenta No 5 mg, 1 Memor ia 01-22 tab, l 14:00: Route: PO, Drug form: [...] 8- not exceed l 09:44: 4 gm/day. [place] 00 (Same as: Tylenol) Fentanyl 0 No Notes: Memoria 8-04 (Same as: l 09:44: Sublimaze) Vin 00 Preservati ve free. Tramadol 0 No Notes: Not Mem oria 8-04 to exceed l 09:44: 400mg/day. [place] 00 (Same As: Ultram) Tylenol No Notes: Do Memor ia 8-04 not exceed l 09:44: 4 gm/day. [place] 00 (Same as: Tylenol) Fentanyl 0 No Notes: Memoria 8-04 (Same as: l 09:44: Sublimaze) Vin 00 Preservati ve free. Tramadol 0 No Notes: Not Mem oria 8-04 to exceed l 09:44: 400mg/day. Vin 00 (Same As: Ultram) Tylenol 0 No Notes: Do Memor ia 8-04 not exceed l 09:44: 4 gm/day. Vin 00 (Same as: Tylenol) Fentanyl No Notes: Memoria 8-04 (Same as: l 09:44: Sublimaze) Vin 00 Preservati ve free. Tramadol 0 No Notes: Not Mem oria 8-04 to exceed l 09:44: 400mg/day. [place] 00 (Same As: Ultram) Tylenol 0 No Notes: Do Memor ia 8-04 not exceed l 09:44: 4 gm/day. [place] 00 (Same as: Tylenol) Fentanyl No Notes: Memoria 8-04 (Same as: l 09:44: Sublimaze) [place] 00 Preservati ve free. Tramadol 0 No Notes: Not Mem oria 8-04 to exceed l 09:44: 400mg/day. Vin 00 (Same As: Ultram) Tylenol 0 No Notes: Do Memor ia 8-04 not exceed l 09:44: 4 gm/day. Vin 00 (Same as: Tylenol) Fentanyl 0 No Notes: Memoria 8-04 (Same as: l 09:44: Sublimaze) [place] 00 Preservati ve free. Fentanyl 0 No Notes: Memoria 8-04 (Same as: l 04:46: Sublimaze) Vin 00 Preservati ve free. Fentanyl No Notes: Memoria 8-04 (Same as: l 04:46: Sublimaze) [place] 00 Preservati ve free. Fentanyl No Notes: Memoria 8-04 (Same as: l 04:46: Sublimaze) Vin 00 Preservati ve free. Fentanyl No Notes: Memoria 8-04 (Same as: l 04:46: Sublimaze) [place] 00 Preservati ve free. Fentanyl No Notes: Memoria 8-04 (Same as: l 04:46: Sublimaze) Vin 00 Preservati ve free. Fentanyl No Notes: Memoria 8-04 (Same as: l 02:01: Sublimaze) [place] 00 Preservati ve free. Fentanyl No Notes: Memoria 8-04 (Same as: l 02:01: Sublimaze) [place] 00 Preservati ve free. Fentanyl No Notes: Memoria 8-04 (Same as: l 02:01: Sublimaze) Vin 00 Preservati ve free. Fentanyl No Notes: Memoria 8-04 (Same as: l 02:01: Sublimaze) Vin 00 Preservati ve free. Fentanyl No Notes: Memoria 8-04 (Same as: l 02:01: Sublimaze) [place] 00 Preservati ve free. Coreg No Notes: [...] Memoria 8-04 Give with l 02:00: food. [place] (Same As: Coreg) Saline No Notes: Memoria Flush 0.9% 8-04 Same as: l 02:00: BD Vin 00 Posiflush Sterile Valproate 0 No 1,000 mg, Mem oria 8-04 2 tab, l 02:00: Route: PO, [place] Drug form: ERTAB, Bedtime, Start date: 01/21/21 [...] 0.9% 8-04 Same as: l 02:00: BD [place] 00 Posiflush Sterile Valproate 0 No 1,000 mg, Mem oria 8-04 2 tab, l 02:00: Route: PO, Drug form: ERTAB, Bedtime, Start date: 01/21/21 21:00:00 CDT, Duration: 30 day, Stop date: 02/19/21 21:00:00 CDT, 0 heparin 2020-0 No Notes: Memoria 01-21 porcine l 21:00: heparin heparin No Notes: Memoria 01-21 porcine l 21:00: heparin [place] 00 heparin No Notes: Memoria 01-21 porcine l 21:00: heparin [place] 00 heparin No Notes: Memoria - porcine l 21:00: heparin heparin No Notes: Memoria - porcine l [...] e. Expires in days from ____Date Dextrose No 12.5 gm, Memor ia 50% Syringe 01-21 25 mL, l (D50W) 20:01: Route: [place] 00 IVP, Drug Form: INJ, Dosing Weight 74.5, kg, PRN, PRN Blood Glucose Results, Start date: 01/21/21 15:01:00 CDT, Duration: 30 day, Stop date: 02/20/21 15:00:00 CDT, 0 Glucagon 2020-0 No 1 mg, Memoria 01-21 Route: IM, l 20:01: Drug form: [place] 00 PDR/INJ, PRN, Dosing Weight 74.5, kg, PRN Blood Glucose Results, Start date: 01/21/21 15:01:00 CDT, Duration: 30 day, Stop date: 02/20/21 15:00:00 CDT, 0 Insulin 2020-0 No Notes: Memoria Lispro 01-21 (Same as: l 20:01: Humalog) [place] 00 Roll in palms of hands gently; [...] e. Expires in days from ____Date Dextrose 1-0 No 12.5 gm, Memor ia 50% Syringe 01-21 25 mL, l (D50W) 20:01: Route: [place] 00 IVP, Drug Form: INJ, Dosing Weight 74.5, kg, PRN, PRN Blood Glucose Results, Start date: 01/21/21 15:01:00 CDT, Duration: 30 day, Stop date: 02/20/21 15:00:00 CDT, 0 Glucagon 1-0 No 1 mg, Memoria 01-21 Route: IM, l 20:01: Drug form: [place] 00 PDR/INJ, PRN, Dosing Weight 74.5, kg, [...] 01-21 25 mL, l (D50W) 20:01: Route: [place] 00 IVP, Drug Form: INJ, Dosing Weight 74.5, kg, PRN, PRN Blood Glucose Results, Start date: 01/21/21 15:01:00 CDT, Duration: 30 day, Stop date: 02/20/21 15:00:00 CDT, 0 Glucagon 2021-0 No 1 mg, Memoria 01-21 Route: IM, l 20:01: Drug form: [place] 00 PDR/INJ, PRN, Dosing Weight 74.5, kg, PRN Blood Glucose Results, Start date: 01/21/21 15:01:00 CDT, Duration: 30 day, Stop date: 02/20/21 15:00:00 CDT, 0 Insulin No Notes: Memoria Lispro 01-21 (Same as: l 20:01: Humalog) [place] 00 Roll in palms of hands gently; [...] Same as: l 200 mL 18:26: Cardene [place] (Titrate.) 00 Concentrat IV 40 mg ion: (0.2 mg /1 ml ) Cardene 40 No Notes: Memor ia mg in NS 01-21 Same as: l 200 mL 18:26: Cardene [place] (Titrate.) 00 Concentrat IV 40 mg ion: (0.2 mg /1 ml ) Cardene 40 No Notes: Memor ia mg in NS 01-21 Same as: l 200 mL 18:26: Cardene [place] (Titrate.) 00 Concentrat IV 40 mg ion: (0.2 mg /1 ml ) Cardene 40 No Notes: Memor ia mg in NS 01-21 Same as: l 200 mL 18:26: Cardene Vin (Titrate.) 00 Concentrat IV 40 mg ion: (0.2 mg /1 ml ) Cyproheptad 1-0 No 4 mg, 1 Mem oria ine 8-03 tab, l 18:00: Route: PO, [place] 00 Drug form: TAB, TID, Dosing Weight 72, kg, Start date: 01/21/21 13:00:00 CDT, Duration: 30 day, Stop date: 02/20/21 9:00:00 CDT Cyproheptad 1-0 No 4 mg, 1 Mem oria ine 8- tab, l 18:00: Route: PO, Drug form: TAB, TID, Dosing Weight 72, kg, Start date: 01/21/21 13:00:00 CDT, Duration: 30 day, Stop date: 02/20/21 9:00:00 CDT Cyproheptad 1-0 No 4 mg, 1 Mem oria ine 8- tab, l 18:00: Route: PO, Drug form: [...] ine 8-03 tab, l 18:00: Route: PO, Drug form: TAB, TID, Dosing Weight 72, kg, Start date: 01/21/21 13:00:00 CDT, Duration: 30 day, Stop date: 02/20/21 9:00:00 CDT Albuterol 2020-0 No Notes: SEE Me nuñez 01-21 RT l 17:49: DOCUMENTAT ION (Same as: Proventil) Albuterol No Notes: SEE Me moria 8-03 RT l 17:49: DOCUMENTAT [place] 00 ION (Same as: Proventil) Albuterol No Notes: SEE Me moria 8-03 RT l 17:49: DOCUMENTAT [place] 00 ION (Same as: Proventil) Albuterol No Notes: SEE Me moria 8-03 RT l 17:49: DOCUMENTAT [place] 00 ION (Same as: Proventil) Albuterol No Notes: SEE Me moria 8-03 RT l 17:49: DOCUMENTAT [place] 00 ION (Same as: Proventil) albuterol No [...] 0.9% 8-03 Same as: l 17:31: BD [place] 00 Posiflush Sterile propofol No Notes: If M emoria mg/mL 8-03 Diprivan - l (Titrate.) 17:31: change Nidia nn IV 1,000 mg 00 bottle & tubing every 12 hr Per state nursing law propofol can only be given by a nurse if patient is intubated or being intubated (unless the nurse is a [employer]). Same as: Diprivan Nystatin No Notes: Memoria 100 UNT/MG 8-03 (Same l Topical 17:31: as:Mycosta Herm naeem Powder 00 tin, Nilstat) For external use only. Saline No Notes: Memoria Flush 0.9% 8-03 Same as: l 17:31: BD [place] 00 Posiflush Sterile propofol No Notes: If M emoria mg/mL 8-03 Diprivan - l (Titrate.) 17:31: change Nidia nn IV 1,000 mg 00 bottle & tubing every 12 hr Per state nursing law propofol can only be given by a nurse if patient is intubated or being intubated (unless the nurse is a [employer]). Same as: Diprivan Nystatin No Notes: Memoria 100 UNT/MG 8-03 (Same l Topical 17:31: as:Mycosta Herm naeem Powder 00 tin, Nilstat) For external use only. Saline No Notes: Memoria Flush 0.9% 8-03 Same as: l 17:31: BD [place] 00 Posiflush Sterile propofol No Notes: If M emoria mg/mL 8-03 Diprivan - l (Titrate.) 17:31: change Nidia nn IV 1,000 mg 00 bottle & tubing every 12 hr Per state nursing law propofol can only be given by a nurse if patient is intubated or being intubated (unless the nurse is a [employer]). Same as: Diprivan Nystatin No Notes: Memoria [...] being intubated (unless the nurse is a [employer]). Same as: Diprivan Nystatin No Notes: Memoria 100 UNT/MG 8-03 (Same l Topical 17:31: as:Mycosta Herm naeem Powder 00 tin, Nilstat) For external use only. Saline No Notes: Memoria Flush 0.9% 8-03 Same as: l 17:31: BD [place] 00 Posiflush Sterile propofol No Notes: If M emoria mg/mL 8-03 Diprivan - l (Titrate.) 17:31: change Nidia nn IV 1,000 mg 00 bottle & tubing every 12 hr Per state nursing law propofol can only be given by a nurse if patient is intubated or being intubated (unless the nurse is a [employer]). Same as: Diprivan midazolam No Route: IV, Me moria (ANES) 8- Drug form: l 17:18: SOLN Vin 00 ONCE, Stop date: 01/21/21 12:18:00 CDT fentaNYL 2020-0 No Route: IV, Mem oria (ANES) 01-21 Drug form: l 17:18: INJ, ONCE, Vin 00 Stop date: 01/21/21 12:18:00 CDT niCARdipine 2020-0 No Route: IV, Memoria (ANES) 01-21 Drug form: l 17:18: INJ, ONCE, [place] 00 Stop date: 01/21/21 12:18:00 CDT midazolam 2020-0 No Route: IV, Me moria (ANES) 01-21 Drug form: l 17:18: SOLN, [place] ONCE, Stop date: 01/21/21 12:18:00 CDT fentaNYL 2020-0 No Route: IV, Mem oria (ANES) 01-21 Drug form: l 17:18: INJ, ONCE, Stop date: 01/21/21 12:18:00 CDT niCARdipine 2020-0 No Route: IV, Memoria (ANES) 01-21 Drug form: l 17:18: INJ, ONCE, Vin 00 Stop date: 01/21/21 12:18:00 CDT midazolam 2020-0 No Route: IV, Me moria (ANES) 01-21 Drug form: l 17:18: SOLN, [place] ONCE, Stop date: 01/21/21 12:18:00 CDT fentaNYL 2020-0 No Route: IV, Mem oria (ANES) 01-21 Drug form: l 17:18: INJ, ONCE, Vin 00 Stop date: 01/21/21 12:18:00 CDT niCARdipine 2020-0 No Route: IV, Memoria (ANES) 01-21 Drug form: l 17:18: INJ, ONCE, [place] 00 Stop date: 01/21/21 12:18:00 CDT midazolam 2020-0 No Route: IV, Me moria (ANES) 01-21 Drug form: l 17:18: SOLN, Vin ONCE, Stop date: 01/21/21 12:18:00 CDT fentaNYL 2020-0 No Route: IV, Mem oria (ANES) 01-21 Drug form: l 17:18: INJ, ONCE, [place] 00 Stop date: 01/21/21 12:18:00 CDT niCARdipine 0 No Route: IV, Memoria (ANES) 01-21 Drug form: l 17:18: INJ, ONCE, Stop date: 01/21/21 12:18:00 CDT midazolam 2020-0 No Route: IV, Me moria (ANES) 01-21 Drug form: l 17:18: SOLN, ONCE, Stop date: 01/21/21 12:18:00 CDT fentaNYL 0 No Route: IV, Mem oria (ANES) [...] ONCE, Stop date: 01/21/21 9:51:00 CDT propofol 2021-0 No Route: IV, Mem oria (ANES) 01-21 [...] Drug form: l mg 14:20: INJ, Start [place] 00 date: 01/21/21 9:20:00 CDT, Stop date: 01/21/21 [...] janice 01-21 (Same as: l 13:16: Mylicon, [place] 00 Phazyme, Genasyme) Hydralazine No Notes: [place] [...] l 13:16: Romazicon) Naloxone No Notes: Memoria 8 Same as l 13:16: Narcan Albuterol No [...] Promethazin No Notes: Do M emoria e 8- not give l 13:16: IV push. [place] 00 (Same as: Phenergan) Simethicone No Notes: [...] 01-21 not give l 13:16: IV push. [place] 00 (Same as: Phenergan) Simethicone No Notes: Mendoza janice 01-21 (Same as: l 13:16: Mylicon, [place] 00 Phazyme, Genasyme) Hydralazine No Notes: Mendoza [...] l 13:16: Romazicon) Naloxone No Notes: Memoria 8 Same as l 13:16: Narcan Albuterol No [...] 667 UT Acetate 667 7-16 mg by [facility] MG tablet 13:04: mouth 4 35 (four) times a day if needed. furosemide Yes 40mg Q.5D Take 40 mg U T (Lasix) 40 7-16 by mouth 2 [facility]a lt MG tablet 13:04: (two) 35 times a [...] C-selenium- zinc (Dialyvite) 3 MG tablet linaGLIPtin 2020-0 Yes 5mg QD Take 5 mg U [...] n [XIFAXAN] 00 tab, 2 Refill(s), Pharmacy: [facility], 154.94, cm, 12/24/20 10:43:00 CDT, Height, 71.818, kg, 12/24/20 10:43:00 CDT, Weight rifaximin 2020-0 Yes 550 mg = 1 Me moria 550 MG Oral 7-06 tab, PO, l Tablet 18:46: TID, # 42 Jake n [XIFAXAN] 00 tab, 2 Refill(s), Pharmacy: [facility], 154.94, cm, 12/24/20 10:43:00 CDT, Height, 71.818, kg, 12/24/20 10:43:00 CDT, Weight rifaximin 1-0 Yes 550 mg = 1 Me moria 550 MG Oral 7-06 tab, PO, l Tablet 18:46: TID, # 42 Jake n [XIFAXAN] 00 tab, 2 Refill(s), Pharmacy: [facility], 154.94, cm, 12/24/20 10:43:00 CDT, Height, 71.818, kg, 12/24/20 10:43:00 CDT, Weight rifaximin 1-0 Yes 550 mg = 1 Me moria 550 MG Oral 7-06 tab, PO, l Tablet 18:46: TID, # 42 Jake n [XIFAXAN] 00 tab, 2 Refill(s), Pharmacy: [facility], 154.94, cm, 12/24/20 10:43:00 CDT, Height, 71.818, kg, 12/24/20 10:43:00 CDT, Weight rifaximin Yes 550 mg = 1 Me moria 550 MG Oral 7- tab, PO, l Tablet 18:46: TID, # 42 Jake n [XIFAXAN] 00 tab, 2 Refill(s), Pharmacy: [facility], 154.94, cm, 12/24/20 10:43:00 CDT, Height, 71.818, kg, 12/24/20 10:43:00 CDT, Weight {2 (480 ML Yes See Memoria Magnesium 7-06 Instructio l Sulfate 18:12: ns, take Jake n 0.0277 00 as MEQ/ML / directed, potassium give sulfate clenpiq if 0.0374 not MEQ/ML / covered by sodium insurance, sulfate # 1 ea, 0 0.257 Refill(s), MEQ/ML Oral Pharmacy: Solution) } [facility] [Suprep 808, Bowel Prep 154.94, Kit] [...] 0.257 Refill(s), MEQ/ML Oral Pharmacy: Solution) } [facility] [Suprep 808, Bowel Prep 154.94, Kit] [...] 7-06 Instructio l Sulfate 18:12: ns, take Jkae n 0.0277 00 as MEQ/ML / directed, [...] 160 mL, Mem oria 75 MG/ML / 12-24 PO, PRE l Magnesium 18:11: OP, # 1 Nidia nn Oxide 21.9 00 ea, 0 MG/ML / Refill(s), picosulfate Pharmacy: sodium [facility] 0[facility]0625 Pharmacy MG/ML Oral 808, Solution 154.94, [Clenpiq] cm, 12/24/20 10:43:00 CDT, Height, 71.818, kg, 12/24/20 10:43:00 CDT, Weight Citric Acid 0 Yes 160 mL, Mem oria 75 MG/ML / 7-06 PO, PRE l Magnesium 18:11: OP, # 1 Niida nn Oxide 21.9 00 ea, 0 MG/ML [...] 71.818, kg, 12/24/20 10:43:00 CDT, Weight cyproheptad 2020-0 Yes 4 mg = 1 Me moria ine 4 mg 7-06 tab, PO, l oral tablet 18:10: TID, X 30 H [place] 00 day, # 90 tab, 3 Refill(s), Pharmacy: [facility], 154.94, cm, 12/24/20 10:43:00 CDT, Height, 71.818, kg, 12/24/20 10:43:00 CDT, Weight cyproheptad 1-0 Yes 4 mg = 1 Me moria ine 4 mg 7-06 tab, PO, l oral tablet 18:10: TID, X 30 H [place] 00 day, # 90 tab, 3 Refill(s), Pharmacy: [facility]08, 154.94, cm, 12/24/20 10:43:00 CDT, Height, 71.818, kg, 12/24/20 10:43:00 CDT, Weight cyproheptad 1-0 Yes 4 mg = 1 Me moria ine 4 mg 7-06 tab, PO, l oral tablet 18:10: TID, X 30 H ermann 00 day, # 90 tab, 3 Refill(s), Pharmacy: [facility]08, 154.94, cm, 12/24/20 10:43:00 CDT, Height, 71.818, kg, 12/24/20 10:43:00 CDT, Weight cyproheptad 1-0 Yes 4 mg = 1 Me moria ine 4 mg 7-06 tab, PO, l oral tablet 18:10: TID, X 30 H [place] 00 day, # 90 tab, 3 Refill(s), Pharmacy: [facility]08, 154.94, cm, 12/24/20 10:43:00 CDT, Height, 71.818, kg, 12/24/20 10:43:00 CDT, Weight cyproheptad 1-0 Yes 4 mg = 1 Me moria ine 4 mg 7-06 tab, PO, l oral tablet 18:10: TID, X 30 H [place] 00 day, # 90 tab, 3 Refill(s), Pharmacy: [facility]08, 154.94, cm, 12/24/20 10:43:00 [...] Memoria 7-06 PO, Daily, l 15:54: 0 [place] 00 Refill(s) Elderberry Yes 0 Memoria preparation 7-06 Refill(s) l 15:54: Zinc 0 Yes 140 mg, Memoria 7-06 PO, Daily, l 15:54: 0 [place] 00 Refill(s) Elderberry Yes 0 Memoria preparation 7-06 Refill(s) l 15:54: Zinc 0 Yes 140 mg, Memoria 7-06 PO, Daily, l 15:54: 0 00 Refill(s) Elderberry 0 Yes 0 Memoria [...] Memor ia 7-06 Refill(s) l 15:53: Dialyvite 2020-0 Yes 0 Memoria 5000 7-06 Refill(s) l 15:53: Buspar 2020-0 Yes PO, BID, 0 Memor ia 7-06 Refill(s) l 15:53: Dialyvite 2020-0 Yes 0 Memoria 5000 7-06 Refill(s) l [...] each day tablet in the morning. metoprolol 2020-0 Yes 1{tbl} QD Take 1 [facility] (Toprol-XL) 00 (one) time 50 MG 24 hr each day. tablet ascorbic 2020-0 Yes 500mg Q.[id number] Take 500 UT acid 5-15 [id number] mg by [facility] (Vitamin C) 00:00: 3D mouth 3 500 MG 00 (three) tablet times a day. zinc Yes DAILY [facility] sulfate 50 5-10 ity of mg zinc 00:00: [place] (220 mg) 00 Medical capsule Branch sucralfate Yes 1{tbl} QD Take 1 UT (Carafate) 5-10 tablet by [facility] th 1 g tablet 00:00: mouth 1 00 (one) time each day. ondansetron Yes 4mg Take 4 mg U nivers 4 mg 4-13 by mouth ity of [place]at [place] 00 [facility] GLIPIZIDE 5 Yes [id number] TAKE 1 [facility] mg tablet 4-06 TABLET [...] bedtime. Medical Branch glipiZIDE 5 2019-06- No [id number] 5mg Take 1 [facility] mg tablet 1-11 04-06 tablet by ity of 00:00: 00:00 mouth 2 [place] 00 :00 (two) Medical times Branch daily before breakfast and dinner. metoclopram Yes 1{tbl} Take 1 Un lori gadiel HCl 9-16 tablet by ity of (REGLAN) 5 00:00: mouth [place] mg tablet 00 daily. Medical Branch buPROPion 2019-0 Yes 300mg Take 300 Uni vers XL [...] 00 bedtime. Medical Branch erythromyci 2020- No [id number] .5[in_u Place 0.5 [facility] n 5 mg/gram [...] as ophthalmic needed for drops Dry eyes. hydrALAZINE Yes 100mg Q.24880641 Take [address] [facility] (APRESOLINE 7-20 [id number] mg by L ukes ) 100 MG 15:20: 3D mouth 3 Medica l tablet 59 (three) Center times daily. magnesium 2017-0 Yes 400mg QD Take [address] [facility] oxide 7-20 mg by [facility] (MAG-OX) 15:20: mouth Medical 400 mg 59 daily. Center tablet metoclopram 2017-0 Yes 10mg Q.03724625 Take [address] [facility] gadiel HCl 7-20 [id number] by mouth 3 [facility] (REGLAN) 10 15:20: [...] l 59 Center hydrALAZINE 2017- Yes 100mg Q.54657475 Take [address] [facility] (APRESOLINE 7-20 [id number] mg by Misbah jc ) 100 MG 15:20: 3D mouth 3 Medica l tablet 59 (three) Center times daily. magnesium 2017- Yes 400mg QD Take [address] [facility] oxide 7-20 mg by [facility] (MAG-OX) 15:20: mouth Medical 400 mg 59 daily. Center tablet metoclopram 2017- Yes 10mg Q.17718488 Take [address] [facility] gadiel HCl 7-20 [id number] by mouth 3 [facility] (REGLAN) 10 15:20: [...] l 59 Center hydrALAZINE 2017-0 Yes 100mg Q.58821081 Take [address] [facility] (APRESOLINE 7-20 [id number] mg by L ukes ) 100 MG 15:20: 3D mouth 3 Medica l tablet 59 (three) Center times daily. magnesium 2017-0 Yes 400mg QD Take [address] [facility] oxide 7-20 mg by [facility] (MAG-OX) 15:20: mouth Medical 400 mg 59 daily. Center tablet metoclopram 2017-0 Yes 10mg Q.29113729 Take [address] [facility] gadiel HCl 7-20 [id number] by mouth 3 [facility] (REGLAN) 10 15:20: [...] l 59 Center hydrALAZINE 2017-0 Yes 100mg Q.19208402 Take [address] [facility] (APRESOLINE 7-20 [id number] mg by L ukes ) 100 MG 15:20: 3D mouth 3 Medica l tablet 59 (three) Center times daily. magnesium 2017- Yes 400mg QD Take [address] [facility] [address] oxide 7-20 mg by [facility] (MAG-OX) 15:20: mouth Medical 400 mg 59 daily. Center tablet metoclopram 2017- Yes 10mg Q.74598399 Take [address] [facility] gadiel HCl 7-20 [id number] by mouth 3 [facility] (REGLAN) 10 15:20: [...] l 59 Center hydrALAZINE 2017-0 Yes 100mg Q.60057620 Take [address] [facility] [address] (APRESOLINE 7-20 [id number] mg by L ukes ) 100 MG 15:20: 3D mouth 3 Medica l tablet 59 (three) Center times daily. magnesium 2017-0 Yes 400mg QD Take [address] [facility] [address] oxide 7-20 mg by [facility] (MAG-OX) 15:20: mouth Medical 400 mg 59 daily. Center tablet metoclopram 2017-0 Yes 10mg Q.75656655 Take [address] [facility] gadiel HCl 7-20 [id number] by mouth 3 [facility] (REGLAN) 10 15:20: [...] [facility] (DEPAKOTE) 7-20 associated mg by Keynatta kes 500 MG EC 15:20: with mouth [...] l 59 Center hydrALAZINE 2017-0 Yes 100mg Q.81237865 Take [address] [facility] (APRESOLINE 7-20 [id number] mg by L ukes ) 100 MG 15:20: 3D mouth 3 Medica l tablet 59 (three) Center times daily. magnesium 2017-0 Yes 400mg QD Take [address] [facility] [address] oxide 7-20 mg by [facility] (MAG-OX) 15:20: mouth Medical 400 mg 59 daily. Center tablet metoclopram 2017-0 Yes 10mg Q.64206712 Take [address] [facility] gadiel HCl 7-20 [id number] by mouth 3 [facility] (REGLAN) 10 15:20: [...] l 59 Center hydrALAZINE 2017-0 Yes 100mg Q.81225118 Take [address] [facility] [address] (APRESOLINE 7-20 [id number] mg by L ukes ) 100 MG 15:20: 3D mouth 3 Medica l tablet 59 (three) Center times daily. magnesium 2017-0 Yes 400mg QD Take [address] [facility] [address] oxide 7-20 mg by [facility] (MAG-OX) 15:20: mouth Medical 400 mg 59 daily. Center tablet metoclopram 2017- Yes 10mg Q.99687580 Take [address] [facility] gadiel HCl 7-20 [id number] by mouth 3 [facility] (REGLAN) 10 15:20: [...] l 59 Center hydrALAZINE 2017-0 Yes 100mg Q.[id number] Take [address] [facility] (APRESOLINE 7-20 [id number] mg by L ukes ) 100 MG 15:20: 3D mouth 3 Medica l tablet 59 (three) Center times daily. magnesium 2017-0 Yes 400mg QD Take [address] [facility] [address] oxide 7-20 mg by [facility] (MAG-OX) 15:20: mouth Medical 400 mg 59 daily. Center tablet metoclopram 2017-0 Yes 10mg Q.77676239 Take [address] [facility] gadiel HCl 7-20 [id number] by mouth 3 [facility] (REGLAN) 10 15:20: [...] l 59 Center hydrALAZINE 2017-0 Yes 100mg Q.03875094 Take [address] [facility] [address] (APRESOLINE 7-20 [id number] mg by L ukes ) 100 MG 15:20: 3D mouth 3 Medica l tablet 59 (three) Center times daily. magnesium 2017- Yes 400mg QD Take [address] [facility] [address] oxide 7-20 mg by [facility] (MAG-OX) 15:20: mouth Medical 400 mg 59 daily. Center tablet metoclopram 2017-0 Yes 10mg Q.65856526 Take [address] [facility] gadiel HCl 7-20 [id number] by mouth 3 [facility] (REGLAN) 10 15:20: [...] l 59 Center hydrALAZINE 2017-0 Yes 100mg Q.[id number] Take [address] [facility] [address] (APRESOLINE 7-20 [id number] mg by L ukes ) 100 MG 15:20: 3D mouth 3 Medica l tablet 59 (three) Center times daily. magnesium 2017-0 Yes 400mg QD Take [address] [facility] [address] oxide 7-20 mg by [facility] (MAG-OX) 15:20: mouth Medical 400 mg 59 daily. Center tablet metoclopram 2017-0 Yes 10mg Q.64005023 Take [address] [facility] gadiel HCl 7-20 [id number] by mouth 3 [facility] (REGLAN) 10 15:20: [...] l 59 Center hydrALAZINE 2017-0 Yes 100mg Q.34538058 Take [address] [facility] [address] (APRESOLINE 7-20 [id number] mg by L ukes ) 100 MG 15:20: 3D mouth 3 Medica l tablet 59 (three) Center times daily. magnesium 2017-0 Yes 400mg QD Take [address] [facility] [address] oxide 7-20 mg by [facility] (MAG-OX) 15:20: mouth Medical 400 mg 59 daily. Center tablet metoclopram 2017-0 Yes 10mg Q.96531798 Take [address] [facility] gadiel HCl 7-20 [id number] by mouth 3 [facility] (REGLAN) 10 15:20: [...] l 59 Center hydrALAZINE 2017-0 Yes 100mg Q.76811343 Take [address] [facility] [address] (APRESOLINE 7-20 [id number] mg by L ukes ) 100 MG 15:20: 3D mouth 3 Medica l tablet 59 (three) Center times daily. magnesium 2017-0 Yes 400mg QD Take [address] [facility] [address] oxide 7-20 mg by [facility] (MAG-OX) 15:20: mouth Medical 400 mg 59 daily. Center tablet metoclopram 2017-0 Yes 10mg Q.23150309 Take [address] [facility] gadiel HCl 7-20 [id number] by mouth 3 [facility] (REGLAN) 10 15:20: [...] l 59 Center hydrALAZINE 2017-0 Yes 100mg Q.[id number] Take [address] [facility] [address] (APRESOLINE 7-20 [id number] mg by L ukes ) 100 MG 15:20: 3D mouth 3 Medica l tablet 59 (three) Center times daily. magnesium 2017-0 Yes 400mg QD Take [address] [facility] [address] oxide 7-20 mg by [facility] (MAG-OX) 15:20: mouth Medical 400 mg 59 daily. Center tablet metoclopram 2017-0 Yes 10mg Q.93052446 Take [address] [facility] gadiel HCl 7-20 [id number] by mouth 3 [facility] (REGLAN) 10 15:20: [...] l 59 Center hydrALAZINE 2017-0 Yes 100mg Q.[id number] Take [address] [facility] [address] (APRESOLINE 7-20 [id number] mg by L ukes ) 100 MG 15:20: 3D mouth 3 Medica l tablet 59 (three) Center times daily. magnesium 2017-0 Yes 400mg QD Take [address] [facility] [address] oxide 7-20 mg by [facility] (MAG-OX) 15:20: mouth Medical 400 mg 59 daily. Center tablet metoclopram 2017-0 Yes 10mg Q.37053184 Take [address] [facility] gadiel HCl 7-20 [id number] by mouth 3 [facility] (REGLAN) 10 15:20: [...] l 59 Center hydrALAZINE 2017-0 Yes 100mg Q.38164694 Take [address] [facility] [address] (APRESOLINE 7-20 [id number] mg by L hosea ) 100 MG 15:20: 3D mouth 3 Medica l tablet 59 (three) Center times daily. magnesium 2017-0 Yes 400mg QD Take [address] [facility] [address] oxide 7-20 mg by [facility] (MAG-OX) 15:20: mouth Medical 400 mg 59 daily. Center tablet metoclopram 2017-0 Yes 10mg Q.70649445 Take [address] [facility] gadiel HCl 7-20 [id number] by mouth 3 [facility] (REGLAN) 10 15:20: [...] l 59 Center hydrALAZINE 2017-0 Yes 100mg Q.98453425 Take [address] [facility] [address] (APRESOLINE 7-20 [id number] mg by L ukes ) 100 MG 15:20: 3D mouth 3 Medica l tablet 59 (three) Center times daily. magnesium 2017-0 Yes 400mg QD Take [address] [facility] [address] oxide 7-20 mg by [facility] (MAG-OX) 15:20: mouth Medical 400 mg 59 daily. Center tablet metoclopram 2017-0 Yes 10mg Q.45836335 Take [address] [facility] gadiel HCl 7-20 [id number] by mouth 3 [facility] (REGLAN) 10 15:20: [...] tablet 15:20: daily. Medica l 59 Center insulin 20170 Yes 5U QD Inject 5 [...] Vin 00 30 tab, 0 Refill(s), Pharmacy: [place] [address] Furosemide Yes 40 mg = 1 Me moria 40 MG Oral 2-09 tab, PO, l Tablet 15:07: Daily, # Vin 00 30 tab, 0 Refill(s), Pharmacy: [place] [address] Furosemide Yes 40 mg = 1 Me moria 40 MG Oral 2-09 tab, PO, l Tablet 15:07: Daily, # [place] 00 30 tab, 0 Refill(s), Pharmacy: [facility] Furosemide Yes 40 mg = 1 Me moria 40 MG Oral 2-09 tab, PO, l Tablet 15:07: Daily, # Vin 00 30 tab, 0 Refill(s), Pharmacy: [facility] Furosemide Yes 40 mg = 1 Me moria 40 MG Oral 2-09 tab, PO, l Tablet 15:07: Daily, # [place] 00 30 tab, 0 Refill(s), Pharmacy: [facility] Bumex No 0.5 mg, Memoria 2 Route: PO, l 15:00: Drug form: Vin 00 TAB, Daily, Dosing Weight 92.273, kg, Start date: 07/30/16 9:00:00 ONCOLOGY ADMIN, Duration: 30 day, Stop date: 08/28/16 9:00:00 ONCOLOGY ADMIN Bumex 2017-0 No 0.5 mg, Memoria 2-09 Route: PO, l 15:00: Drug form: [place] 00 TAB, Daily, Dosing Weight 92.273, kg, Start date: 07/30/16 9:00:00 ONCOLOGY ADMIN, Duration: 30 day, Stop date: 08/28/16 9:00:00 ONCOLOGY ADMIN Bumex 2017-0 No 0.5 mg, Memoria 2-09 Route: PO, l 15:00: Drug form: Vin 00 TAB, Daily, Dosing Weight 92.273, kg, Start date: 07/30/16 9:00:00 ONCOLOGY ADMIN, Duration: 30 day, Stop date: 08/28/16 9:00:00 ONCOLOGY ADMIN Bumex 2017-0 No 0.5 mg, Memoria 2-09 Route: PO, l 15:00: Drug form: [place] 00 TAB, Daily, Dosing Weight 92.273, kg, Start date: 07/30/16 9:00:00 ONCOLOGY ADMIN, Duration: 30 day, Stop date: 08/28/16 9:00:00 ONCOLOGY ADMIN Bumex 2017-0 No 0.5 mg, Memoria 2-09 Route: PO, l 15:00: Drug form: [place] 00 TAB, Daily, Dosing Weight 92.273, kg, Start date: 07/30/16 9:00:00 ONCOLOGY ADMIN, Duration: 30 day, Stop date: 08/28/16 9:00:00 ONCOLOGY ADMIN Lasix 2017-0 No Notes: Memoria 2-08 (Same as: l 20:05: Lasix) May [place] 00 cause GI upset. Give with food or milk. Lasix 2016-0 No Notes: Memoria 2-08 (Same as: l 20:05: Lasix) May [place] 00 cause GI upset. Give with food or milk. Lasix 2016-0 No Notes: Memoria 2-08 (Same as: l 20:05: Lasix) May [place] 00 cause GI upset. Give with food or milk. Lasix 2016-0 No Notes: Memoria 2-08 (Same as: l 20:05: Lasix) October [place] 00 cause GI upset. Give with food or milk. Lasix 2016-0 No Notes: Memoria 2-08 (Same as: l 20:05: Lasix) May [place] 00 cause GI upset. Give with food or milk. Hydralazine 2016-0 No Notes: Mendoza janice 2-08 (Same as: l 06:05: Apresoline [place] 00 ) Push over 5 minutes Hydralazine 2016-0 No Notes: Mendoza janice 2-08 (Same as: l 06:05: Apresoline [place] 00 ) Push over 5 minutes Hydralazine 2016-0 No Notes: Mendoza janice 2-08 (Same as: l 06:05: Apresoline Vin 00 ) Push over 5 minutes Hydralazine 2016-0 No Notes: Mendoza janice 2-08 (Same as: l 06:05: Apresoline Vin 00 ) Push over 5 minutes Hydralazine 2016-0 No Notes: Mendoza janice 2-08 (Same as: l 06:05: Apresoline [place] 00 ) Push over 5 minutes sodium 2017-0 No 1,000 mL, Memori a chloride 2-05 Rate: 125 l 0.9% 1000 18:26: ml/hr, Jake n ml INJ 00 Infuse 1,000 mL over: 8 hr, Route: IV, Dosing Weight 92.273 kg, Total Volume: 1,000, Start date: 07/26/16 12:26:00 ONCOLOGY ADMIN, Duration: 30 day, Stop date: 08/25/16 12:25:00 ONCOLOGY ADMIN sodium 2017-0 No 1,000 mL, Memori a chloride 2-05 Rate: 125 l 0.9% 1000 18:26: ml/hr, Jake n ml INJ 00 Infuse 1,000 mL over: 8 hr, Route: IV, Dosing Weight 92.273 kg, Total Volume: 1,000, Start date: 07/26/16 12:26:00 ONCOLOGY ADMIN, Duration: 30 day, Stop date: 08/25/16 12:25:00 ONCOLOGY ADMIN sodium 2017-0 No 1,000 mL, Memori a chloride 2-05 Rate: 125 l 0.9% 1000 18:26: ml/hr, Jake n ml INJ 00 Infuse 1,000 mL over: 8 hr, Route: IV, Dosing Weight 92.273 kg, Total Volume: 1,000, Start date: 07/26/16 12:26:00 ONCOLOGY ADMIN, Duration: 30 day, Stop date: 08/25/16 12:25:00 ONCOLOGY ADMIN sodium 2017-0 No 1,000 mL, Memori a chloride 2-05 Rate: 125 l 0.9% 1000 18:26: ml/hr, Jake n ml INJ 00 Infuse 1,000 mL over: 8 hr, Route: IV, Dosing Weight 92.273 kg, Total Volume: 1,000, Start date: 07/26/16 12:26:00 ONCOLOGY ADMIN, Duration: 30 day, Stop date: 08/25/16 12:25:00 ONCOLOGY ADMIN sodium 2017-0 No 1,000 mL, Memori a chloride 2-05 Rate: 125 l 0.9% 1000 18:26: ml/hr, Jake n ml INJ 00 Infuse 1,000 mL over: 8 hr, Route: IV, Dosing Weight 92.273 kg, Total Volume: 1,000, Start date: 07/26/16 12:26:00 ONCOLOGY ADMIN, Duration: 30 day, Stop date: 08/25/16 12:25:00 ONCOLOGY ADMIN Sodium 2017-0 No 500 mL, Memoria Chloride 2-05 500 ml/hr, l 0.154 13:30: Infuse Vin MEQ/ML 00 Over: 1 Injectable hr, Route: Solution IV, 500, Drug form: INJ, ONCE, Priority: STAT, Dosing Weight 92.273 kg, Start date: 07/26/16 7:30:00 ONCOLOGY ADMIN, Duration: 1 doses or times, Stop date: 07/26/16 7:30:00 ONCOLOGY ADMIN Sodium 2017-0 No 500 mL, Memoria Chloride 2-05 500 ml/hr, l 0.154 13:30: Infuse [place] MEQ/ML 00 Over: 1 Injectable hr, Route: Solution IV, 500, Drug form: INJ, ONCE, Priority: STAT, Dosing Weight 92.273 kg, Start date: 07/26/16 7:30:00 ONCOLOGY ADMIN, Duration: 1 doses or times, Stop date: 07/26/16 7:30:00 ONCOLOGY ADMIN Sodium 2017-0 No 500 mL, Memoria Chloride 2-05 500 ml/hr, l 0.154 13:30: Infuse Vin MEQ/ML 00 Over: 1 Injectable hr, Route: Solution IV, 500, Drug form: INJ, ONCE, Priority: STAT, Dosing Weight 92.273 kg, Start date: 07/26/16 7:30:00 ONCOLOGY ADMIN, Duration: 1 doses or times, Stop date: 07/26/16 7:30:00 ONCOLOGY ADMIN Sodium 2017-0 No 500 mL, Memoria Chloride 2-05 500 ml/hr, l 0.154 13:30: Infuse [place] MEQ/ML 00 Over: 1 Injectable hr, Route: Solution IV, 500, Drug form: INJ, ONCE, Priority: STAT, Dosing Weight 92.273 kg, Start date: 07/26/16 7:30:00 ONCOLOGY ADMIN, Duration: 1 doses or times, Stop date: 07/26/16 7:30:00 ONCOLOGY ADMIN Sodium 2017-0 No 500 mL, Memoria Chloride 2-05 500 ml/hr, l 0.154 13:30: Infuse Vin MEQ/ML 00 Over: 1 Injectable hr, Route: Solution IV, 500, Drug form: INJ, ONCE, Priority: STAT, Dosing Weight 92.273 kg, Start date: 07/26/16 7:30:00 ONCOLOGY ADMIN, Duration: 1 doses or times, Stop date: 07/26/16 7:30:00 ONCOLOGY ADMIN Insulin 2017-0 No 60 units) Mendoza janice regular 2-04 WASTE: F/P l 08:39: - Black; E [place] 00 - Municipal Trash Bin Stable for 28 days at room temperatur e Expires in days from ____Date Insulin 2017-0 No 60 units) Mendoza janice regular 2-04 WASTE: F/P l 08:39: - Black; E [place] 00 - Municipal Trash Bin Stable for [...] e Expires in days from ____Date Insulin 2016- No 60 units) Mendoza janice regular 2-04 WASTE: F/P l 08:39: - Black; E Vin 00 - Municipal Trash Bin Stable for 28 days at room temperatur e Expires in days from ____Date Insulin, No Notes: Memoria Aspart, 2-04 Roll in l Human 07:31: palms of [place] 00 hands gently; Do not shake vigorously [...] Roll in l Human 07:31: palms of [place] 00 hands gently; Do not shake vigorously . (Same as: NovoLOG) "single patient use only" WASTE: F/P - Black; E - Municipal Trash Bin Stable for 28 days at room temperatur e. Expires in days from ____Date Insulin, No Notes: Memoria Aspart, 2-04 Roll in l Human 07:31: palms of [place] 00 hands gently; Do not shake vigorously . (Same as: NovoLOG) "single patient use only" WASTE: F/P - Black; E - Municipal Trash Bin Stable for 28 days at room temperatur e. Expires in days from ____Date Insulin, No Notes: Memoria Aspart, 2-04 Roll in l Human 07:31: palms of [place] 00 hands gently; Do not shake vigorously [...] Roll in l Human 05:42: palms of [place] 00 hands gently; Do not shake vigorously . (Same as: NovoLOG) "single patient use only" WASTE: F/P - Black; E - Municipal Trash Bin Stable for 28 days at room temperatur e. Expires in days from ____Date Insulin, No Notes: Memoria Aspart, 2-04 Roll in l Human 03:28: palms of [place] 00 hands gently; Do not shake vigorously [...] Roll in l Human 03:28: palms of [place] 00 hands gently; Do not shake vigorously . (Same as: NovoLOG) "single patient use only" WASTE: F/P - Black; E - Municipal Trash Bin Stable for 28 days at room temperatur e. Expires in days from ____Date Insulin, No Notes: Memoria Aspart, 2-04 Roll in l Human 03:28: palms of [place] 00 hands gently; Do not shake vigorously . (Same as: NovoLOG) "single patient use only" WASTE: F/P - Black; E - Municipal Trash Bin Stable for 28 days at room temperatur e. Expires in days from ____Date Insulin, No Notes: Memoria Aspart, 2-04 Roll in l Human 03:28: palms of [place] 00 hands gently; Do not shake vigorously . (Same as: NovoLOG) "single patient use only" WASTE: F/P - Black; E - Municipal Trash Bin Stable for 28 days at room temperatur e. Expires in days from ____Date atorvastati No Notes: Mendoza janice n 2-04 (Same as: l 03:00: Lipitor) divalproex No Notes: Memor ia sodium 2-04 (Same as: l 03:00: Depakote [place] 00 ER) Once daily dosing; indicated for [...] n 2-04 (Same as: l 03:00: Lipitor) [place] 00 divalproex No Notes: Memor ia sodium 2-04 (Same as: l 03:00: Depakote Vin 00 ER) Once daily dosing; indicated for migraines. Divalproex sodium extended-r elease tab. Do not chew or crush. "Do Not Crush" atorvastati No Notes: Mendoza janice n 2-04 (Same as: l 03:00: Lipitor) Vin 00 divalproex No Notes: Memor ia sodium 2-04 (Same as: l 03:00: Depakote [place] 00 ER) Once daily dosing; indicated for migraines. Divalproex sodium extended-r elease tab. Do not chew or crush. "Do Not Crush" atorvastati No Notes: Mendoza janice n 2-04 (Same as: l 03:00: Lipitor) [place] divalproex No Notes: Memor ia sodium 2-04 [...] Memoria 2-03 (Same as: l 22:00: Lasix) [place] 00 MEDICATION WASTE Product Size: 40 mg [...] Memoria 2-03 (Same as: l 22:00: Lasix) [place] 00 MEDICATION WASTE Product Size: 40 mg Product Wasted: ___ mg Tylenol No Notes: Max Mendoza janice 2-03 acetaminop l 21:52: hen = [place] 00 4000mg/day (4 gm/day). (Same as: Tylenol) Tylenol No Notes: Max Mendoza janice 2-03 acetaminop l 21:52: hen = [place] 00 4000mg/day (4 gm/day). (Same as: Tylenol) Tylenol No Notes: Max Mendoza janice 2-03 acetaminop l 21:52: hen = Vin 00 4000mg/day (4 gm/day). (Same as: Tylenol) Tylenol No Notes: Max Mendoza janice 2-03 acetaminop l 21:52: hen = [place] 00 4000mg/day (4 gm/day). (Same as: Tylenol) Tylenol No Notes: Max Mendoza janice 2-03 acetaminop l 21:52: hen = Vin 00 4000mg/day (4 gm/day). (Same as: Tylenol) Bupropion No 150 mg, 1 Mem oria 2-03 tab, l 15:00: Route: PO, Vin 00 Drug form: ERTAB, Daily, Dosing Weight 92.273, kg, Start date: 07/24/16 9:00:00 ONCOLOGY ADMIN, Duration: 30 day, Stop date: 08/22/16 9:00:00 ONCOLOGY ADMIN 24 HR No Notes: Memoria Divalproex 2-03 [...] form: ERTAB, Daily, Start date: 07/24/16 9:00:00 ONCOLOGY ADMIN, Duration: 30 day, Stop date: 08/22/16 9:00:00 ONCOLOGY ADMIN Insulin No Notes: Memoria Glargine 2-03 Same [...] Weight 92.273, kg, Start date: 07/24/16 9:00:00 ONCOLOGY ADMIN, Duration: 30 day, Stop date: 08/22/16 9:00:00 ONCOLOGY ADMIN 24 HR No Notes: Memoria Divalproex 2-03 [...] Memoria 2-03 (Same as: l 15:00: Zoloft) [place] 00 Protonix No Notes: Memoria 2-03 Tablet l 15:00: should not be chewed or crushed. (Same as: Protonix) metoprolol No 100 mg, 2 Me moria extended 2-03 tab, l release 15:00: Route: PO, Herm naeem Drug form: ERTAB, Daily, Start date: 07/24/16 9:00:00 ONCOLOGY ADMIN, Duration: 30 day, Stop date: 08/22/16 9:00:00 ONCOLOGY ADMIN Insulin No Notes: Memoria Glargine 2-03 Same [...] oria 2-03 tab, l 15:00: Route: PO, [place] Drug form: ERTAB, Daily, Dosing Weight 92.273, kg, Start date: 07/24/16 9:00:00 ONCOLOGY ADMIN, Duration: 30 day, Stop date: 08/22/16 9:00:00 ONCOLOGY ADMIN 24 HR No Notes: Memoria Divalproex 2-03 [...] form: ERTAB, Daily, Start date: 07/24/16 9:00:00 ONCOLOGY ADMIN, Duration: 30 day, Stop date: 08/22/16 9:00:00 ONCOLOGY ADMIN Insulin No Notes: Memoria Glargine 2-03 Same [...] oria 2-03 tab, l 15:00: Route: PO, [place] Drug form: ERTAB, Daily, Dosing Weight 92.273, kg, Start date: 07/24/16 9:00:00 ONCOLOGY ADMIN, Duration: 30 day, Stop date: 08/22/16 9:00:00 ONCOLOGY ADMIN 24 HR No Notes: Memoria Divalproex 2-03 [...] form: ERTAB, Daily, Start date: 07/24/16 9:00:00 ONCOLOGY ADMIN, Duration: 30 day, Stop date: 08/22/16 9:00:00 ONCOLOGY ADMIN Insulin No Notes: Memoria Glargine 2-03 Same [...] oria 2-03 tab, l 15:00: Route: PO, [place] 00 Drug form: ERTAB, Daily, Dosing Weight 92.273, kg, Start date: 07/24/16 9:00:00 ONCOLOGY ADMIN, Duration: 30 day, Stop date: 08/22/16 9:00:00 ONCOLOGY ADMIN 24 HR No Notes: Memoria Divalproex 2-03 [...] Memoria 2-03 Tablet l 15:00: should not [place] 00 be chewed or crushed. (Same as: Protonix) metoprolol No 100 mg, 2 Me moria extended 2-03 tab, l release 15:00: Route: PO, Herm naeem Drug form: ERTAB, Daily, Start date: 07/24/16 9:00:00 ONCOLOGY ADMIN, Duration: 30 day, Stop date: 08/22/16 9:00:00 ONCOLOGY ADMIN Insulin No Notes: Memoria Glargine 2-03 Same [...] janice 2-03 (Same as: l 14:50: Zofran) [place] 00 MEDICATION WASTE Product Size: 4 mg Product Wasted: ___ mg Morphine No Notes: Memoria 2-03 (Same l 14:50: as:MORPhin Vin 00 e Sulfate) Ondansetron No Notes: Mendoza janice 2-03 (Same as: l 14:50: Zofran) [place] 00 MEDICATION WASTE Product Size: 4 mg Product Wasted: ___ mg Morphine No Notes: Memoria 2-03 (Same l 14:50: as:MORPhin Vin 00 e Sulfate) Ondansetron No Notes: Mendoza janice 2-03 (Same as: l 14:50: Zofran) [place] 00 MEDICATION WASTE Product Size: 4 mg Product Wasted: ___ mg Morphine No Notes: Memoria 2-03 (Same l 14:50: as:MORPhin [place] 00 e Sulfate) Ondansetron No Notes: Mendoza janice 2-03 (Same as: l 14:50: Zofran) Vin 00 MEDICATION WASTE Product Size: 4 mg Product Wasted: ___ mg Morphine No Notes: Memoria 2-03 (Same l 14:50: as:MORPhin [place] 00 e Sulfate) Insulin, No Notes: Memoria [...] Roll in l Human 13:30: palms of [place] 00 hands gently; Do not shake vigorously . (Same as: NovoLOG) "single patient use only" WASTE: F/P - Black; E - Municipal Trash Bin Stable for 28 days at room temperatur e. Expires in days from ____Date Insulin, No Notes: Memoria Aspart, 2-03 Roll in l Human 13:30: palms of [place] 00 hands gently; Do not shake vigorously . (Same as: NovoLOG) "single patient use only" WASTE: F/P - Black; E - Municipal Trash Bin Stable for 28 days at room temperatur e. Expires in days from ____Date Dilaudid No Notes: Memoria 2-03 Same as l 11:28: Dilaudid [place] 00 Dilaudid No Notes: Memoria 2-03 Same as l 11:28: Dilaudid [place] 00 Dilaudid No Notes: Memoria 2-03 Same as l 11:28: Dilaudid [place] 00 Dilaudid No Notes: Memoria 2-03 Same [...] 2-03 Route: IM, l 08:40: Drug form: [place] 00 PDR/INJ, PRN, Dosing Weight 92.273, kg, PRN Blood Glucose Results, Start date: 07/24/16 2:40:00 ONCOLOGY ADMIN, Duration: 30 day, Stop date: 08/23/16 2:39:00 ONCOLOGY ADMIN Dextrose No 25 gm, 50 M[place] janice 50% Syringe 2-03 mL, Route: l 08:40: IVP, Drug Vin 00 Form: INJ, Dosing Weight 92.273, kg, PRN, PRN Blood Glucose Results, Start date: 07/24/16 2:40:00 ONCOLOGY ADMIN, Duration: 30 day, Stop date: 08/23/16 2:39:00 ONCOLOGY ADMIN Insulin, No Notes: Memoria Aspart, 2-03 Roll [...] 2-03 Route: IM, l 08:40: Drug form: [place] 00 PDR/INJ, PRN, Dosing Weight 92.273, kg, PRN Blood Glucose Results, Start date: 07/24/16 2:40:00 ONCOLOGY ADMIN, Duration: 30 day, Stop date: 08/23/16 2:39:00 ONCOLOGY ADMIN Dextrose 2016-0 No 25 gm, 50 Mendo[place] janice 50% Syringe 2-03 mL, Route: l 08:40: IVP, Drug [place] 00 Form: INJ, Dosing Weight 92.273, kg, PRN, PRN Blood Glucose Results, Start date: 07/24/16 2:40:00 ONCOLOGY ADMIN, Duration: 30 day, Stop date: 08/23/16 2:39:00 ONCOLOGY ADMIN Insulin, 2016-0 No Notes: Memoria Aspart, 2- Roll in l Human 08:40: palms of [place] 00 hands gently; Do not shake vigorously . (Same as: NovoLOG) "single patient use only" WASTE: F/P - Black; E - Municipal Trash Bin Stable for 28 days at room [facility] e. Expires in days from ____Date Glucagon 2016-0 No 1 mg, Memoria 2-03 Route: IM, l 08:40: Drug form: Vin 00 PDR/INJ, PRN, Dosing Weight 92.273, kg, PRN Blood Glucose Results, Start date: 07/24/16 2:40:00 ONCOLOGY ADMIN, Duration: 30 day, Stop date: 08/23/16 2:39:00 ONCOLOGY ADMIN Dextrose 2017-0 No 25 gm, 50 Mendoza janice 50% Syringe 2-03 mL, Route: l 08:40: IVP, Drug [place] 00 Form: INJ, Dosing Weight 92.273, kg, PRN, PRN Blood Glucose Results, Start date: 07/24/16 2:40:00 ONCOLOGY ADMIN, Duration: 30 day, Stop date: 08/23/16 2:39:00 ONCOLOGY ADMIN Insulin, 2017-0 No Notes: Memoria Aspart, 2-03 Roll in l Human 08:40: palms of [place] 00 hands gently; Do not shake vigorously . (Same as: NovoLOG) "single patient use only" WASTE: F/P - Black; E - Municipal Trash Bin Stable for 28 days at room temperatur e. Expires in days from ____Date Glucagon 2017-0 No 1 mg, Memoria 2-03 Route: IM, l 08:40: Drug form: [place] 00 PDR/INJ, PRN, Dosing Weight 92.273, kg, PRN Blood Glucose Results, Start date: 07/24/16 2:40:00 ONCOLOGY ADMIN, Duration: 30 day, Stop date: 08/23/16 2:39:00 ONCOLOGY ADMIN Dextrose 2017-0 No 25 gm, 50 Mendoza janice 50% Syringe 2-03 mL, Route: l 08:40: IVP, Drug Vin 00 Form: INJ, Dosing Weight 92.273, kg, PRN, PRN Blood Glucose Results, Start date: 07/24/16 2:40:00 ONCOLOGY ADMIN, Duration: 30 day, Stop date: 08/23/16 2:39:00 ONCOLOGY ADMIN Insulin, 2017-0 No Notes: Memoria Aspart, 2-03 [...] Blood Glucose Results, Start date: 07/24/16 2:40:00 ONCOLOGY ADMIN, Duration: 30 day, Stop date: 08/23/16 2:39:00 ONCOLOGY ADMIN Dextrose 2017-0 No 25 gm, 50 Mendoza janice 50% Syringe 2-03 mL, Route: l 08:40: IVP, Drug [place] 00 Form: INJ, Dosing Weight 92.273, kg, PRN, PRN Blood Glucose Results, Start date: 07/24/16 2:40:00 ONCOLOGY ADMIN, Duration: 30 day, Stop date: 08/23/16 2:39:00 ONCOLOGY ADMIN Docusate 2016- No Notes: Memoria 2-03 (Same as: l 07:20: Colace) Vin 00 (Do Not Crush) Ondansetron No Notes: Mendoza janice 2-03 (Same as: l 07:20: Zofran) [place] 00 MEDICATION WASTE Product Size: 4 mg Product Wasted: ___ mg Docusate 2016- No Notes: Memoria 2-03 (Same as: l 07:20: Colace) [place] 00 (Do Not Crush) Ondansetron 2016- No Notes: Mendoza janice 2-03 (Same as: l 07:20: Zofran) Vin 00 MEDICATION WASTE Product Size: 4 mg Product Wasted: ___ mg Docusate 2016- No Notes: Memoria 2-03 (Same as: l 07:20: Colace) Vin 00 (Do Not Crush) Ondansetron No Notes: Mendoza janice 2-03 (Same as: l 07:20: Zofran) [place] 00 MEDICATION WASTE Product Size: 4 mg Product Wasted: ___ mg Docusate 2016- No Notes: Memoria 2-03 (Same as: l 07:20: Colace) [place] 00 (Do Not Crush) Ondansetron 2016- No Notes: Mendoza janice 2-03 (Same as: l 07:20: Zofran) [place] 00 MEDICATION WASTE Product Size: 4 mg Product Wasted: ___ mg Docusate 2016-0 No Notes: Memoria 2-03 (Same as: l 07:20: Colace) [place] 00 (Do Not Crush) Ondansetron 2016-0 No Notes: Mendoza janice 2-03 (Same as: l 07:20: Zofran) [place] 00 MEDICATION WASTE Product Size: 4 mg Product Wasted: ___ mg Lasix 2016- No Notes: Memoria 2-03 (Same as: l 06:01: Lasix) [place] 00 MEDICATION WASTE Product Size: 40 mg [...] 2-03 (Same as: l / 04:09: Duoneb) [place] Ipratropium 00 Turner 0.167 MG/ML Inhalant Solution [DuoNeb] Albuterol No Notes: Memori a 0.833 MG/ML 2- (Same as: :: Duoneb) Vin Ipratropium 00 [place] 0.167 MG/ML Inhalant Solution [DuoNeb] Albuterol No Notes: Memori a 0.833 MG/ML 2 (Same as: :: Duoneb) [place] Ipratropium 00 Turner 0.167 MG/ML Inhalant Solution [DuoNeb] Albuterol No Notes: Memori a 0.833 MG/ML 2 (Same as: :: Duoneb) [place] Ipratropium 00 Turner 0.167 MG/ML Inhalant Solution [DuoNeb] Albuterol No Notes: Memori a 0.833 MG/ML 07-24 (Same as: :: Duoneb) Vin Ipratropium 00 [place] 0.167 MG/ML Inhalant Solution [DuoNeb] Furosemide 2015-06 [...] INHALATION l 0.09 16:34: , PRN, PRN [place] MG/ACTUAT 00 as needed Metered for Dose wheezing, Inhaler use as needed for shortness of breath or wheezing, # 8 gm, 0 Refill(s) Aspirin 81 2015-06 Yes 81 mg = 1 Me moria MG Chewable 2-26 tab, PO, l Tablet 16:34: Daily, # [place] 00 30 tab, 0 Refill(s) Hydroxyzine 2015-06 Yes 50 mg = 1 M emoria Hydrochlori 2-26 cap, PO, l de 50 MG 16:34: TID, X 30 Herm naeem Oral 00 day, # 90 Capsule cap, 0 Refill(s) losartan 25 2015-06 Yes 25 mg = 1 M emoria mg oral 2-26 tab, PO, l tablet 16:34: Daily, # [place] 00 30 tab, 0 Refill(s) Furosemide 2015-06 [...] tab, PO, l Tablet 16:34: Daily, # [place] 00 30 tab, 0 Refill(s) Hydroxyzine 2015-06 Yes 50 mg = 1 M emoria Hydrochlori 2-26 cap, PO, l de 50 MG 16:34: TID, X 30 Herm naeem Oral 00 day, # 90 Capsule cap, 0 Refill(s) losartan 25 2015-06 Yes 25 mg = 1 M emoria mg oral 2-26 tab, PO, l tablet 16:34: Daily, # [place] 00 30 tab, 0 Refill(s) Furosemide 2015-06 Yes 80 mg = 2 Me moria 40 MG Oral 2-26 tab, PO, l Tablet 16:34: BID, # 120 Nidia nn 00 tab, 0 Refill(s) atorvastati 2015-06 Yes 40 mg = 1 M emoria n 40 mg 2-26 tab, PO, l oral tablet 16:34: Bedtime, # [place] 00 30 tab, 0 Refill(s) Insulin 2015-06 [...] tab, PO, l Tablet 16:34: Daily, # [place] 00 30 tab, 0 Refill(s) Hydroxyzine 2015-06 Yes 50 mg = 1 M emoria Hydrochlori 2-26 cap, PO, l de 50 MG 16:34: TID, X 30 Herm naeem Oral 00 day, # 90 Capsule cap, 0 Refill(s) losartan 25 2015-06 Yes 25 mg = 1 M emoria mg oral 2-26 tab, PO, l tablet 16:34: Daily, # [place] 00 30 tab, 0 Refill(s) Furosemide 2015-06 [...] tab, PO, l Tablet 16:34: Daily, # [place] 00 30 tab, 0 Refill(s) Hydroxyzine 2015-06 [...] INHALATION l 0.09 16:34: , PRN, PRN [place] MG/ACTUAT 00 as needed Metered for Dose [...] tab, PO, l tablet 16:34: Daily, # [place] 00 30 tab, 0 Refill(s) Lasix 2015-06 No Notes: Memoria 2-26 (Same as: l 15:00: Lasix) Octoberann cause GI upset. Give with food or milk. Lasix 2015-06 No Notes: Memoria 2-26 (Same as: l 15:00: Lasix) October [place] cause GI upset. Give with food or milk. ix 2015-06 No Notes: Memoria 2-26 (Same as: l 15:00: Lasix) October [place] cause GI upset. Give with food or milk. Lasix 2015-06 No Notes: Memoria 2-26 (Same as: l 15:00: Lasix) October [place] cause GI upset. Give with food or milk. Lasix 2015-06 No Notes: Memoria 2-26 (Same as: l 15:00: Lasix) October [place] cause GI upset. Give with food or milk. Magnesium 2015-06 No Notes: Memori a Oxide 2-24 (Same as: l 13:36: Mag-Ox Vin 00 400) Magnesium oxide 480va=757d g elemental magnesium Dose=____m g magnesium oxide (___mg elemental magnesium) Magnesium 2015-06 No Notes: Memori a Oxide 2-24 (Same as: l 13:36: Mag-Ox [place] 00 400) Magnesium oxide 354xc=677i g elemental magnesium Dose=____m g magnesium oxide (___mg elemental magnesium) Magnesium 2015-06 No Notes: Memori a Oxide 2-24 (Same as: l 13:36: Mag-Ox [place] 00 400) Magnesium oxide 151cu=089d g elemental magnesium Dose=____m g magnesium oxide (___mg elemental magnesium) Magnesium 2015-06 No Notes: Memori a Oxide 2-24 (Same as: l 13:36: Mag-Ox [place] 00 400) Magnesium oxide 545mb=410q g elemental magnesium Dose=____m g magnesium oxide (___mg elemental magnesium) Magnesium 2015-06 No Notes: Memori a Oxide 2-24 (Same as: l 13:36: [facility]-Ox [place] 400) Magnesium oxide 293yo=461d g elemental magnesium Dose=____m g magnesium oxide (___mg elemental magnesium) Magnesium 2015-06 No Notes: Memori a Oxide 2-24 (Same as: l 09:47: [facility] Magnesium oxide 134hj=802n g elemental magnesium Dose=____m g magnesium oxide (___mg elemental magnesium) Magnesium 2015-06 No Notes: Memori a Oxide 2-24 (Same as: l 09:47: [facility]-Ox Vin 400) Magnesium oxide 955dj=503g g elemental magnesium Dose=____m g magnesium oxide (___mg elemental magnesium) Magnesium 2015-06 No Notes: Memori a Oxide 2-24 (Same as: l 09:47: [facility]) Magnesium oxide 873um=470x g elemental magnesium Dose=____m g magnesium oxide (___mg elemental magnesium) Magnesium 2015-06 No Notes: Memori a Oxide 2-24 (Same as: l :47: [facility]- [place] 400) Magnesium oxide 900le=630z g elemental magnesium Dose=____m g magnesium oxide (___mg elemental magnesium) Magnesium 2015-06 No Notes: Memori a Oxide 2-24 (Same as: l 09:47: [facility]- [place] 400) Magnesium oxide 309kz=268e g elemental magnesium Dose=____m g magnesium oxide [...] XL 2-24 (Same as: l 00:00: Wellbutrin [place] 00 XL) "Do Not Crush" Norvasc 2015-06 No Notes: Memoria 2-24 (Same as: l 00:00: Norvasc) Vin 00 Wellbutrin 2015-06 No Notes: Memor ia XL 2-24 (Same as: l 00:00: Wellbutrin [place] 00 XL) "Do Not Crush" Norvasc 2015-06 No Notes: Memoria 2-24 (Same as: l 00:00: Norvasc) [place] 00 Wellbutrin 2015-06 No Notes: Memor ia XL 2-24 (Same as: l 00:00: Wellbutrin [place] 00 XL) "Do Not Crush" Norvasc 2015-06 No Notes: Memoria 2-24 (Same as: l 00:00: Norvasc) [place] 00 Wellbutrin 2015-06 No Notes: Memor ia XL 2-24 (Same as: l 00:00: Wellbutrin [place] 00 XL) [facility] No Notes: Memoria 2-24 (Same as: l 00:00: Norvasc) [place] 00 Wellbutrin 2015-06 No Notes: Memor ia XL 2-24 (Same as: l 00:00: Wellbutrin [place] 00 XL) "[facility] No Notes: Memoria 2-24 (Same as: [...] tab, PO, l tablet 15:35: Daily, 0 [place] 00 Refill(s) pravastatin 2015-06 No 40 mg = 1 M emoria 40 mg oral 2-23 tab, PO, l tablet 15:35: Daily, 0 Vin 00 Refill(s) amLODIPine 2015-06 No 10 mg = 1 Me moria 10 mg oral 2-23 tab, PO, l tablet 15:35: Daily, 0 [place] 00 Refill(s) pravastatin 2015-06 No 40 mg = 1 M emoria 40 mg oral 2-23 tab, PO, l tablet 15:35: Daily, 0 [place] 00 Refill(s) amLODIPine 2015-06 No 10 mg [...] tab, PO, l Tablet 15:27: Daily, 0 [place] [Zoloft] 00 Refill(s) pantoprazol 2015-06 Yes 40 [...] AND 1 l Capsule 15:27: CAP AT [place] 00 BEDTIME, 0 Refill(s) Insulin, 2015-06 No [...] tab, PO, l Tablet 15:27: Daily, 0 [place] [Zoloft] 00 Refill(s) pantoprazol 2015-06 Yes 40 mg = 1 M emoria e 40 MG 2-23 tab, PO, l Enteric 15:27: Daily, 0 Jake n Coated 00 Refill(s) Tablet [Protonix] gabapentin 2015-06 Yes 1 CAP PO Mem oria 300 MG Oral 2-23 BID AND 1 l Capsule 15:27: CAP AT [place] 00 BEDTIME, 0 Refill(s) Insulin, 2015-06 No [...] AND 1 l Capsule 15:27: CAP AT [place] 00 BEDTIME, 0 Refill(s) Insulin, 2015-06 No [...] AND 1 l Capsule 15:27: CAP AT [place] 00 BEDTIME, 0 Refill(s) Insulin, 2015-06 No [...] Memori a 2-22 (Same l 19:00: as:Chronul Vin) Lactulose 2015-06 No Notes: Memori a 2-22 (Same l 19:00: as:Chronul Vin) Lactulose 2015-06 No Notes: Memori a 2-22 (Same l 19:00: as:Chronul [place]) Lactulose 2015-06 No Notes: Memori a 2-22 (Same l 19:00: as:Chronul ac) Lactulose 2015-06 No Notes: Memori a [...] Weight 86.364, kg, Start date: 06/11/16 9:00:00 ONCOLOGY ADMIN, Duration: 30 day, Stop date: 07/10/16 9:00:00 ONCOLOGY ADMIN Insulin 2015-06 No Notes: Memoria Glargine 2-22 [...] Weight 86.364, kg, Start date: 06/11/16 9:00:00 ONCOLOGY ADMIN, Duration: 30 day, Stop date: 07/10/16 9:00:00 ONCOLOGY ADMIN Insulin 2015-06 No Notes: Memoria Glargine 2-22 [...] Weight 86.364, kg, Start date: 06/11/16 9:00:00 ONCOLOGY ADMIN, Duration: 30 day, Stop date: 07/10/16 9:00:00 ONCOLOGY ADMIN Insulin 2015-06 No Notes: Memoria Glargine 2-22 [...] Weight 86.364, kg, Start date: 06/11/16 9:00:00 ONCOLOGY ADMIN, Duration: 30 day, Stop date: 07/10/16 9:00:00 ONCOLOGY ADMIN Insulin 2015-06 No Notes: Memoria Glargine 2-22 [...] Weight 86.364, kg, Start date: 06/11/16 9:00:00 ONCOLOGY ADMIN, Duration: 30 day, Stop date: 07/10/16 9:00:00 ONCOLOGY ADMIN Insulin 2015-06 No Notes: Memoria Glargine 2-22 Same as: l 100 UNT/ML 15:00: Lantus) Do H erm not hold Solution insulin [Lantus] without contacting prescriber WASTE: F/P - Black; E - Municipal Trash Bin Zoloft 2015-06 No Notes: Memoria 2-22 (Same as: l 15:00: Zoloft) Insulin, 2015-06 No Notes: Memoria Aspart, 2-22 Roll in l Human 12:55: palms of [place] 00 hands gently; Do not shake vigorously . (Same as: NovoLOG) "single patient use only" WASTE: F/P - Black; E - Municipal Trash Bin Stable for 28 days at room temperatur e. Expires in days from ____Date Insulin, 2015-06 No Notes: Memoria Aspart, 2-22 Roll in l Human 12:55: palms of [place] 00 hands gently; Do not shake vigorously [...] Roll in l Human 12:55: palms of [place] 00 hands gently; Do not shake vigorously [...] sodium, 2-22 porcine l porcine 06:00: heparin [place] 2500 UNT/ML 00 Injectable Solution heparin 2015-06 No Notes: Memoria sodium, 2-22 porcine l porcine 06:00: heparin Vin 2500 UNT/ML 00 Injectable Solution heparin 2015-06 No Notes: Memoria sodium, 2-22 porcine l porcine 06:00: heparin [place] 2500 UNT/ML 00 Injectable Solution heparin 2015-06 No Notes: Memoria sodium, 2-22 porcine l porcine 06:00: heparin [place] 2500 UNT/ML 00 Injectable Solution Albuterol 2015-06 No Notes: Memori a 0.833 MG/ML 2-22 (Same as: l / 03:00: Duoneb) Vin Ipratropium 00 [place] 0.167 MG/ML Inhalant Solution [DuoNeb] gabapentin 2015-06 No 300 mg, Mendoza janice 300 MG Oral 2-22 Route: PO, l Capsule 03:00: Drug form: Herm naeem 00 CAP, Q12H, Dosing Weight 86.364, kg, (CrCl 30 - 59 ml/min), Start date: 06/10/16 21:00:00 ONCOLOGY ADMIN, Duration: 30 day, Stop date: 07/10/16 9:00:00 ONCOLOGY ADMIN divalproex 2015-06 No Notes: Memor ia sodium 2-22 (Same as: l 03:00: Depakote [place] 00 ER) Once daily dosing; indicated for migraines. Divalproex sodium extended-r elease tab. Do not chew or crush. "Do Not Crush" Losartan 2015-06 No Notes: Memoria 2-22 (Same as: l 03:00: Cozaar) [place] 00 Albuterol 2015-06 No Notes: Memori a 0.833 MG/ML 2-22 (Same as: l 03:00: Duoneb) Vin Ipratropium 00 [place] 0.167 MG/ML Inhalant Solution [DuoNeb] gabapentin 2015-06 No 300 mg, Mendoza janice 300 MG Oral 2-22 Route: PO, l Capsule 03:00: Drug form: Herm naeem 00 CAP, Q12H, Dosing Weight 86.364, kg, (CrCl 30 - 59 ml/min), Start date: 06/10/16 21:00:00 ONCOLOGY ADMIN, Duration: 30 day, Stop date: 07/10/16 9:00:00 ONCOLOGY ADMIN divalproex 2015-06 No Notes: Memor ia sodium 2-22 (Same as: l 03:00: Depakote Vin 00 ER) Once daily dosing; indicated for migraines. Divalproex sodium extended-r elease tab. Do not chew or crush. "Do Not Crush" Losartan 2015-06 No Notes: Memoria 2-22 (Same as: l 03:00: Cozaar) [place] Albuterol 2015-06 No Notes: Memori a 0.833 MG/ML 2-22 (Same as: 03:00: Duoneb) [place] Ipratropium 00 Turner 0.167 MG/ML Inhalant Solution [DuoNeb] gabapentin 2015-06 No 300 mg, Mendoza janice 300 MG Oral 2-22 Route: PO, l Capsule 03:00: Drug form: Herm naeem 00 CAP, Q12H, Dosing Weight 86.364, kg, (CrCl 30 - 59 ml/min), Start date: 06/10/16 21:00:00 ONCOLOGY ADMIN, Duration: 30 day, Stop date: 07/10/16 9:00:00 ONCOLOGY ADMIN divalproex 2015-06 No Notes: Memor ia sodium 2-22 (Same as: l 03:00: Depakote [place] 00 ER) Once daily dosing; indicated for migraines. Divalproex sodium extended-r elease tab. Do not chew or crush. "Do Not Crush" Losartan 2015-06 No Notes: Memoria 2-22 (Same as: l 03:00: Cozaar) [place] Albuterol 2015-06 No Notes: Memori a 0.833 MG/ML 2-22 (Same as: 03:: Duoneb) Vin Ipratropium 00 Turner 0.167 MG/ML Inhalant Solution [DuoNeb] gabapentin 2015-06 No 300 mg, Mendoza janice 300 MG Oral 2-22 Route: PO, l Capsule 03:00: Drug form: Herm naeem 00 CAP, Q12H, Dosing Weight 86.364, kg, (CrCl 30 - 59 ml/min), Start date: 06/10/16 21:00:00 ONCOLOGY ADMIN, Duration: 30 day, Stop date: 07/10/16 9:00:00 ONCOLOGY ADMIN divalproex 2015-06 No Notes: Memor ia sodium 2-22 (Same as: l 03:00: Depakote Vin 00 ER) Once daily dosing; indicated for migraines. Divalproex sodium extended-r elease tab. Do not chew or crush. "Do Not Crush" Losartan 2015-06 No Notes: Memoria 2-22 (Same as: l 03:00: Cozaar) Vin Albuterol 2015-06 No Notes: Memori a 0.833 MG/ML 2-22 (Same as: / 03:00: Duoneb) Ipratropium 00 Turner 0.167 MG/ML Inhalant Solution [DuoNeb] gabapentin 2015-06 No 300 mg, Mendoza janice 300 MG Oral 2-22 Route: PO, l Capsule 03:00: Drug form: Herm naeem CAP, Q12H, Dosing Weight 86.364, kg, (CrCl 30 - 59 ml/min), Start date: 06/10/16 21:00:00 ONCOLOGY ADMIN, Duration: 30 day, Stop date: 07/10/16 9:00:00 ONCOLOGY ADMIN divalproex 2015-06 No Notes: Memor ia sodium [...] Blood Glucose Results, Start date: 06/10/16 18:50:00 ONCOLOGY ADMIN, Duration: 30 day, Stop date: 07/10/16 18:49:00 ONCOLOGY ADMIN Glucagon 2015-06 No 1 mg, Memoria 2-22 Route: IM, l 00:50: Drug form: PDR/INJ, PRN, Dosing Weight 86.364, kg, PRN Blood Glucose Results, Start date: 06/10/16 18:50:00 ONCOLOGY ADMIN, Duration: 30 day, Stop date: 07/10/16 18:49:00 ONCOLOGY ADMIN Insulin, 2015-06 No Notes: Memoria Aspart, 2-22 Roll in l Human 00:50: palms of [place] 00 hands gently; Do not shake vigorously [...] Blood Glucose Results, Start date: 06/10/16 18:50:00 ONCOLOGY ADMIN, Duration: 30 day, Stop date: 07/10/16 18:49:00 ONCOLOGY ADMIN Glucagon 2015-06 No 1 mg, Memoria 2-22 Route: IM, l 00:50: Drug form: Vin 00 PDR/INJ, PRN, Dosing Weight 86.364, kg, PRN Blood Glucose Results, Start date: 06/10/16 18:50:00 ONCOLOGY ADMIN, Duration: 30 day, Stop date: 07/10/16 18:49:00 ONCOLOGY ADMIN Insulin, 2015-06 No Notes: Memoria Aspart, 2-22 [...] Blood Glucose Results, Start date: 06/10/16 18:50:00 ONCOLOGY ADMIN, Duration: 30 day, Stop date: 07/10/16 18:49:00 ONCOLOGY ADMIN Glucagon 2015-06 No 1 mg, Memoria 2-22 Route: IM, l 00:50: Drug form: Vin 00 PDR/INJ, PRN, Dosing Weight 86.364, kg, PRN Blood Glucose Results, Start date: 06/10/16 18:50:00 ONCOLOGY ADMIN, Duration: 30 day, Stop date: 07/10/16 18:49:00 ONCOLOGY ADMIN Insulin, 2015-06 No Notes: Memoria Aspart, 2-22 [...] Blood Glucose Results, Start date: 06/10/16 18:50:00 ONCOLOGY ADMIN, Duration: 30 day, Stop date: 07/10/16 18:49:00 ONCOLOGY ADMIN Glucagon 2015-06 No 1 mg, Memoria 2-22 Route: IM, l 00:50: Drug form: [place] 00 PDR/INJ, PRN, Dosing Weight 86.364, kg, PRN Blood Glucose Results, Start date: 06/10/16 18:50:00 ONCOLOGY ADMIN, Duration: 30 day, Stop date: 07/10/16 18:49:00 ONCOLOGY ADMIN Insulin, 2015-06 No Notes: Memoria Aspart, 2-22 [...] Blood Glucose Results, Start date: 06/10/16 18:50:00 ONCOLOGY ADMIN, Duration: 30 day, Stop date: 07/10/16 18:49:00 ONCOLOGY ADMIN Glucagon 2015-06 No 1 mg, Memoria 2-22 Route: IM, l 00:50: Drug form: [place] 00 PDR/INJ, PRN, Dosing Weight 86.364, kg, PRN Blood Glucose Results, Start date: 06/10/16 18:50:00 ONCOLOGY ADMIN, Duration: 30 day, Stop date: 07/10/16 18:49:00 ONCOLOGY ADMIN Hydralazine 2015-06 No Notes: Mendoza janice 2-22 [...] janice 2-22 (Same as: l 00:36: Apresoline [place] 00 ) Push over 5 minutes Hydralazine 2015-06 No Notes: Mendoza janice 2-22 (Same as: l 00:36: Apresoline Vin 00 ) Push over 5 minutes Hydralazine 2015-06 No Notes: Mendoza janice 2-22 (Same as: l 00:34: Apresoline [place] 00 ) May interfere w/enteral feedings Take With Food Hydralazine 2015-06 No Notes: Mendoza janice 2-22 (Same as: l 00:34: Apresoline [place] 00 ) May interfere w/enteral feedings Take With Food Hydralazine 2015-06 No Notes: Mendoza janice 2-22 (Same as: l 00:34: Apresoline [place] 00 ) May interfere w/enteral feedings Take [...] Weight 86.364, kg, Start date: 06/10/16 18:06:00 ONCOLOGY ADMIN, Stop date: 06/10/16 18:06:00 ONCOLOGY ADMIN Hydralazine 2015-06 No 10 mg, Mendoza janice 2-22 Route: IV, l 00:06: ONCE, Dosing Weight 86.364, kg, Start date: 06/10/16 18:06:00 ONCOLOGY ADMIN, Stop date: 06/10/16 18:06:00 ONCOLOGY ADMIN Hydralazine 2015-06 No 10 mg, Mendoza janice 2-22 Route: IV, l 00:06: ONCE, Dosing Weight 86.364, kg, Start date: 06/10/16 18:06:00 ONCOLOGY ADMIN, Stop date: 06/10/16 18:06:00 ONCOLOGY ADMIN Hydralazine 2015-06 No 10 mg, Mendoza janice 2-22 Route: IV, l 00:06: ONCE, Dosing Weight 86.364, kg, Start date: 06/10/16 18:06:00 ONCOLOGY ADMIN, Stop date: 06/10/16 18:06:00 ONCOLOGY ADMIN Hydralazine 2015-06 No 10 mg, Mendoza janice 2-22 Route: IV, l 00:06: ONCE, [place] Dosing Weight 86.364, kg, Start date: 06/10/16 18:06:00 ONCOLOGY ADMIN, Stop date: 06/10/16 18:06:00 ONCOLOGY ADMIN hydrOXYzine 2015-06 No Notes: Mendoza janice pamoate [...] ia 2-21 Route: l 22:32: IVP, Drug [place] 00 form: INJ, ONCE, Dosing Weight 86.364, kg, Start date: 06/10/16 16:32:00 ONCOLOGY ADMIN, Stop date: 06/10/16 16:32:00 ONCOLOGY ADMIN Furosemide 2015-06 No 60 mg, Memor ia 2-21 Route: l 22:32: IVP, Drug Vin 00 form: INJ, ONCE, Dosing Weight 86.364, kg, Start date: 06/10/16 16:32:00 ONCOLOGY ADMIN, Stop date: 06/10/16 16:32:00 ONCOLOGY ADMIN Furosemide 2015-06 No 60 mg, Memor ia 2-21 Route: l 22:32: IVP, Drug Vin 00 form: INJ, ONCE, Dosing Weight 86.364, kg, Start date: 06/10/16 16:32:00 ONCOLOGY ADMIN, Stop date: 06/10/16 16:32:00 ONCOLOGY ADMIN Furosemide 2015-06 No 60 mg, Memor ia 2-21 Route: l 22:32: IVP, Drug [place] 00 form: INJ, ONCE, Dosing Weight 86.364, kg, Start date: 06/10/16 16:32:00 ONCOLOGY ADMIN, Stop date: 06/10/16 16:32:00 ONCOLOGY ADMIN Furosemide 2015-06 No 60 mg, Memor ia 08-11 Route: l 22:32: IVP, Drug [place] 00 form: INJ, ONCE, Dosing Weight 86.364, kg, Start date: 06/10/16 16:32:00 ONCOLOGY ADMIN, Stop date: 06/10/16 16:32:00 ONCOLOGY ADMIN Lasix 2015-06 No Notes: Memoria 08-11 (Same as: l 17:22: Lasix) Vin 00 MEDICATION WASTE Product Size: 40 mg Product Wasted: _0__ mg Albuterol 2015-06 No Notes: Memori a 0.833 MG/ML - (Same as: :: Duoneb) Vin Ipratropium 00 Turner 0.167 MG/ML Inhalant Solution [DuoNeb] Lasix 2015-06 No Notes: Memoria 08-11 (Same as: l :: Lasix) Vin 00 MEDICATION WASTE Product Size: 40 mg Product Wasted: _0__ mg Albuterol 2015-06 No Notes: Memori a 0.833 MG/ML - (Same as: : Duoneb) [place] Ipratropium 00 Turner 0.167 MG/ML Inhalant Solution [DuoNeb] Lasix 2015-06 No Notes: Memoria 08-11 (Same as: l 17:22: Lasix) Vin 00 MEDICATION WASTE Product Size: 40 mg Product Wasted: _0__ mg Albuterol 2015-06 No Notes: Memori a 0.833 MG/ML - (Same as: :22: Duoneb) Vin Ipratropium 00 Turner 0.167 MG/ML Inhalant Solution [DuoNeb] Lasix 2015-06 No Notes: Memoria - (Same as: l 17:22: Lasix) Vin 00 MEDICATION WASTE Product Size: 40 mg Product Wasted: _0__ mg Albuterol 2015-06 No Notes: Memori a 0.833 MG/ML -21 (Same as: : Duoneb) Vin Ipratropium 00 Turner 0.167 MG/ML Inhalant Solution [DuoNeb] Lasix 2015-06 No Notes: Memoria 08-11 (Same as: : Lasix) Vin 00 MEDICATION WASTE Product Size: 40 mg Product Wasted: _0__ mg Albuterol 2015-06 No Notes: Memori a 0.833 MG/ML 08-11 (Same as: : Duoneb) Vin Ipratropium 00 Turner 0.167 MG/ML Inhalant Solution [DuoNeb] Promethazin Yes 25 mg = 1 M emoria e 1-06 supp, MO, l Hydrochlori 14:45: Q6H, Jake n de 25 MG 00 Nausea & Rectal Vomiting, Suppository # 9 supp, [Phenergan] 0 Refill(s) Promethazin Yes 25 mg = 1 M emoria e 1-06 supp, MO, l Hydrochlori 14:45: Q6H, Jake n de 25 MG 00 Nausea & Rectal Vomiting, Suppository # 9 supp, [Phenergan] 0 Refill(s) Promethazin Yes 25 mg = 1 M emoria e 1-06 supp, MO, l Hydrochlori 14:45: Q6H, Jake n de 25 MG 00 Nausea & Rectal Vomiting, Suppository # 9 supp, [Phenergan] 0 Refill(s) Promethazin Yes 25 mg = 1 M emoria e 1-06 supp, MO, l Hydrochlori 14:45: Q6H, Jake n de 25 MG 00 Nausea & Rectal Vomiting, Suppository # 9 supp, [Phenergan] 0 Refill(s) Promethazin Yes 25 mg = 1 M emoria e 1-06 supp, MO, l Hydrochlori 14:45: Q6H, Jake n de [...] ne 06-26 Same as: l 11:48: Dilaudid [place] Hydromorpho No Notes: Mendoza janice ne 06-26 Same as: l 11:48: Dilaudid Vin Hydromorpho No Notes: Mendoza janice ne 06 Same as: l 11:48: Dilaudid [place] Hydromorpho No Notes: Mendoza janice ne 06 Same as: l 11:48: Dilaudid Vin Hydromorpho No Notes: Mendoza janice ne 06-26 Same as: l 11:48: Dilaudid [place] hydrOXYzine Yes 0 Memori a pamoate 1-06 Refill(s) l 11:18: [place] Dicyclomine Yes 0 Memori a 1-06 Refill(s) l 11:18: Vin 00 hydrOXYzine Yes 0 Memori a pamoate 1-06 Refill(s) l 11:18: Vin 00 Dicyclomine Yes 0 Memori a 1-06 Refill(s) l 11:18: Vin 00 hydrOXYzine Yes 0 Memori a pamoate 1-06 Refill(s) l 11:18: [place] Dicyclomine Yes 0 Memori a 1-06 Refill(s) l 11:18: Vin 00 hydrOXYzine 2015-0 Yes 0 Memori a pamoate 1-06 Refill(s) l 11:18: Dicyclomine 2015-0 Yes 0 Memori a 1-06 Refill(s) l 11:18: hydrOXYzine 2015-0 Yes 0 Memori a pamoate 1-06 Refill(s) l 11:18: Dicyclomine 2015-0 Yes 0 Memori a 1-06 Refill(s) [...] Memori a n 1-06 Refill(s) l 11:16: Vin 00 Tramadol 2014-0 Yes 0 Memoria 1-06 Refill(s) l 11:16: Depakote 2014-0 Yes 0 Memoria 1-06 Refill(s) l 11:16: quetiapine 2014-0 Yes 0 Memoria 1-06 Refill(s) l 11:16: Erythromyci 0 Yes 0 Memori a n 1-06 Refill(s) l 11:16: Vin 00 Tramadol 0 Yes 0 Memoria 1-06 Refill(s) l 11:16: Depakote 2014-0 Yes 0 Memoria 1-06 Refill(s) l 11:16: quetiapine 2014-0 Yes 0 Memoria 1-06 Refill(s) l 11:16: Erythromyci 0 Yes 0 Memori a n 1-06 Refill(s) l 11:16: Tramadol 0 Yes 0 Memoria 1-06 Refill(s) l [...] Chloride 1-06 1,000 l 0.154 10:56: ml/hr, [place] MEQ/ML 00 Infuse Injectable Over: 2 Solution [...] Chloride 1-06 1,000 l 0.154 10:56: ml/hr, [place] MEQ/ML 00 Infuse Injectable Over: 2 Solution hr, Route: IV, 2,000, Drug form: INJ, ONCE, Priority: STAT, Dosing Weight 75 kg, Start date: 06/26/14 4:56:00, Duration: 1 doses or times, Stop date: 06/26/14 4:56:00 Lorazepam 0 No Notes: Memori a 1-06 (Same as: l 10:56: Ativan) Metoclopram No Notes: Mendoza janice gadiel 1-06 (Same as: l 10:55: Reglan) Metoclopram No Notes: Mendoza jaince gadiel 06-26 (Same as: l 10:55: Reglan) Metoclopram No Notes: Mendoza janice gadiel 06-26 (Same as: l 10:55: Reglan) Metoclopram No Notes: Mendoza janice gadile 06-26 (Same as: l 10:55: Reglan) Metoclopram [...] Rate: 125 l 0.9% IV 04:10: ml/hr, [place] 1,000 mL 00 Infuse over: 8 hr, [...] Rate: 125 l 0.9% IV 04:10: ml/hr, [place] 1,000 mL 00 Infuse over: 8 hr, [...] Rate: 125 l 0.9% IV 04:10: ml/hr, [place] 1,000 mL 00 Infuse over: 8 hr, [...] Gary 4 mg, Mem oria Sulfate 0-26 Mrary Route: l 04:10: IVP, ONCE, Dosing Weight [...] Murillo 5 mg, Me moria Sulfate 9-25 Maxr Route: l 01:15: IVP, ONCE, Dosing Weight [...] 03/14/12 20:15:00, Stop date: 03/14/12 20:15:00 morphine 2012-0 No Hung Murillo 5 mg, [...] Marx Rate: 500 l 0.9% 23:45: ml/hr, [place] (Bolus) IV 00 Infuse 500 mL over: [...] Marx Rate: 500 l 0.9% 23:45: ml/hr, [place] (Bolus) IV 00 Infuse 500 mL over: 1 hr, Route: IV, kg, Total Volume: 500, Bolus Dose, Priority: STAT, Start date: 03/14/12 18:45:00, Duration: 1 doses or times, Stop date: 03/14/12 19:44:00 Sodium 2012-0 No Hung Murillo 500 mL, Me moria Chloride 9-24 Marx Rate: 500 l 0.9% 23:45: ml/hr, [place] (Bolus) IV 00 Infuse 500 mL over: 1 hr, Route: IV, kg, Total Volume: 500, [place] Dose, Priority: STAT, Start date: 03/14/12 18:45:00, Duration: 1 doses or times, Stop date: 03/14/12 19:44:00 ondansetron 2011-0 No Hung Murillo 4 mg, Memoria 9-24 Marx Route: l 22:19: IVP, ONCE, [place] 00 Dosing Weight 58.636, kg, Priority: STAT, [...] 9-24 Marx Rate: l 0.9% 22:19: 1,000 [place] (Bolus) IV 00 ml/hr, 500 mL Infuse over: 0.5 hr, Route: IV, kg, Total Volume: 500, [place] dose, Priority: STAT, Start date: 03/14/12 17:19:00, Duration: 1 doses or times, Stop date: 03/14/12 17:48:00 ondansetron 2011-0 No Hung Murillo 4 mg, Memoria 9-24 Marx Route: l 22:19: IVP, ONCE, [place] 00 Dosing Weight 58.636, kg, Priority: STAT, [...] 9-24 Marx Route: l 22:19: IVP, ONCE, [place] 00 Dosing Weight 58.636, kg, For IV push reconstitu te with 10 ml 0.9% sodium chloride and push over at least 3 minutes, Priority: STAT, Start date: 03/14/12 17:19:00, Stop date: 03/14/12 17:19:00 Sodium 2011-0 No Hung Murillo 500 mL, Me moria Chloride 9-24 Marx Rate: l 0.9% 22:19: 1,000 [place] (Bolus) IV 00 ml/hr, 500 mL Infuse [...] 03-14 Marx Rate: l 0.9% 22:19: 1,000 [place] (Bolus) IV 00 ml/hr, 500 mL Infuse [...] insulin No Blake 10 unit, 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 6-11 Deangelo 0.1 mL, l H 02:00: Route: Vin 00 SUB-Q, Drug form: INJ, Bedtime, Start date: 11/29/11 21:00:00, Duration: 30 day, Stop date: 12/28/11 21:00:00 Insulin No Blake 8 unit, Mendoza janice regular 6-11 Deangelo 0.08 mL, l 02:00: Brisa Route: [place] SUB-Q, Drug form: SOLN, Bedtime, Start date: [...] 2011-0 No Blake 10 unit, 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 6-11 Deangelo 0.1 mL, l H 02:00: [...] 2011-0 No Blake 10 unit, 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 6-11 Deangelo 0.1 mL, l H 02:00: Brisa Route: Vin SUB-Q, Drug form: INJ, Bedtime, [...] 2011-0 No Blake 10 unit, 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 6-11 Deangelo 0.1 mL, l H 02:00: Brisa Route: [place] SUB-Q, Drug form: INJ, Bedtime, Start date: [...] 30 day, Stop date: 12/28/11 21:00:00 insulin 2012-0 No Blake 10 unit, 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 6-11 Deangelo 0.1 mL, l H 02:00: Route: Vin 00 SUB-Q, Drug form: INJ, Bedtime, Start date: 11/29/11 21:00:00, Duration: 30 day, Stop date: 12/28/11 21:00:00 Insulin 2011-0 No Blake 8 unit, Mendoza janice regular 6-11 Daengelo 0.08 mL, l 02:00: Brisa Route: Vin [...] 6-10 Omidvar Route: l 21:33: IVP, ONCE, [place] 00 Start date: 11/29/11 16:33:00, Stop date: 11/29/11 16:33:00 morphine 2011-0 No [place] 2 mg, 0.5 Me moria Sulfate 6-10 Omidvar mL, Route: l 21:32: IVP, Drug [place] 00 form: INJ, ONCE, Start date: 11/29/11 16:32:00, Stop date: 11/29/11 16:32:00 morphine 2011-0 No [place] 2 mg, 0.5 Me moria Sulfate 6-10 Omidvar mL, Route: l 21:32: IVP, Drug Vin 00 form: INJ, ONCE, Start date: 11/29/11 16:32:00, Stop date: 11/29/11 16:32:00 morphine 2011-0 No [place] 2 mg, 0.5 Me moria Sulfate 6-10 Omidvar mL, Route: l 21:32: IVP, Drug [place] 00 form: INJ, ONCE, Start date: 11/29/11 [...] 6-10 Omidvar tab, l 19:16: Route: PO, [place] 00 Drug form: TAB, Q4H, PRN Pain, [...] 2011-0 No Blake 14 unit, 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 6-10 Deangelo 0.14 mL, l H 14:00: Brisa Route: [place] SUB-Q, Drug form: INJ, Daily, Start date: 11/29/11 9:00:00, Duration: 30 day, Stop date: 12/28/11 9:00:00 Insulin 2011-0 No Blake 10 unit, Mem oria regular 6-10 Deangelo 0.1 mL, l 14:00: Brisa Route: [place] SUB-Q, Drug form: SOLN, Daily, Start date: [...] 2011-0 No Blake 14 unit, 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 6-10 Deangelo 0.14 mL, l H 14:00: [...] date: 12/28/11 9:00:00 Effexor XR 2011-0 No Lbake 75 mg, 1 Memoria 6-10 Deangelo cap, [...] 2011-0 No Blake 14 unit, 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 6-10 Deangelo 0.14 mL, l H 14:00: [...] 2011-0 No Blake 14 unit, 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 6-10 Deangelo 0.14 mL, l H 14:00: [...] 2011-0 No Blake 14 unit, 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 6-10 Deangelo 0.14 mL, l H 14:00: [...] 6-10 Deangelo 0.1 mL, l 06:30: Route: [place] 00 SUB-Q, Drug form: SOLN, TID-Before Meals, [...] 6-10 Deangelo 0.1 mL, l 06:30: Route: [place] 00 SUB-Q, Drug form: SOLN, TID-Before Meals, [...] Deangelo 0.1 mL, l 06:30: Brisa Route: [place] 00 SUB-Q, Drug form: SOLN, TID-Before Meals, [...] l IV 1,000 mL 06:29: Brisa ml/hr, [place] 00 Infuse over: 5 hr, Route: IV, Dosing Weight 57.273 kg, Total Volume: 1,000, Start date: 11/29/11 1:29:00, Duration: 30 day, Stop date: 12/29/11 1:28:00 normal 2012-0 No Blake 1,000 mL, Mem oria saline 0.9% 6-10 Deangelo Rate: 200 l IV 1,000 mL 06:29: Brisa ml/hr, [place] 00 Infuse over: 5 hr, Route: IV, [...] janice 6-10 Deangelo Route: IV, l 06:28: [facility] Drug form: Her braden 00 INJ, [...] janice 6-10 Deangelo Route: IV, l 06:28: [facility] Drug form: Her braden 00 INJ, [...] Blake 5 ml, Memoria Flush 0.9% 6-10 Deaneglo Route: l 06:28: Brisa IVP, Drug Herm [...] mL, Route: l 04:01: Brown IVP, Drug [place] 00 form: INJ, ONCE, Priority: STAT, Start [...] mL, Route: l 04:01: Brown IVP, Drug [place] 00 form: INJ, ONCE, Priority: STAT, Start [...] mL, Route: l 02:31: Brown IVP, Drug [place] 00 form: INJ, ONCE, Priority: STAT, Start date: 11/28/11 21:31:00, Stop date: 11/28/11 21:31:00 Zofran 2012-0 No Nikki 4 mg, 2 Mendoza janice 6-10 Sarah mL, Route: l 02:31: Brown IVP, Drug [place] 00 form: INJ, ONCE, Priority: STAT, Start date: 11/28/11 21:31:00, Stop date: 11/28/11 21:31:00 Zofran 2012-0 No Nikki 4 mg, 2 Mendoza janice 6-10 Sarah mL, Route: l 02:31: Brown IVP, Drug [place] 00 form: INJ, ONCE, Priority: STAT, Start date: 11/28/11 21:31:00, Stop date: 11/28/11 21:31:00 Zofran 2011-0 No Nikki 4 mg, 2 Mendoza janice 6-10 Sarah mL, Route: l 02:31: Brown IVP, Drug Vin 00 form: INJ, ONCE, Priority: STAT, Start date: 11/28/11 21:31:00, Stop date: 11/28/11 21:31:00 NS (Bolus) No Arif Domenico 1,000 mL, Memoria IV 1,000 mL 11-27 Rate: l 22:48: 1,000 [place] 00 ml/hr, Infuse over: 1 hr, Route: IV, Dosing Weight 57.273 kg, Total Volume: 1,000, Start date: 11/28/11 17:48:00, Duration: 30 day, Stop date: 12/28/11 17:47:00 NS (Bolus) 0 No Arif Domenico 1,000 mL, Memoria IV 1,000 mL 11-27 Rate: l 22:48: 1,000 [place] 00 ml/hr, Infuse over: 1 hr, Route: [...] 1,000 mL 6- Rate: l 22:48: 1,000 [place] 00 ml/hr, Infuse over: 1 hr, Route: [...] Domenico 1,000 mL, Memoria IV 1,000 mL 6-09 Rate: l 20:36: 1,000 [place] 00 ml/hr, Infuse over: 1 hr, Route: IV, Dosing Weight 57.273 kg, Total Volume: 1,000, Start date: 11/28/11 15:36:00, Duration: 30 day, Stop date: 12/28/11 15:35:00 NS (Bolus) No Arif Domenico 1,000 mL, Memoria IV 1,000 mL 11-27 Rate: l 20:36: 1,000 [place] 00 ml/hr, Infuse over: 1 hr, Route: [...] 1,000 mL 11-27 Rate: l 20:36: 1,000 [place] 00 ml/hr, Infuse over: 1 hr, Route: IV, Dosing Weight 57.273 kg, Total Volume: 1,000, Start date: 11/28/11 15:36:00, Duration: 30 day, Stop date: 12/28/11 15:35:00 Ativan No Arif Domenico 2 mg, 1 Mem oria 6-09 mL, Route: l 20:35: IVP, Drug [place] 00 form: INJ, ONCE, Priority: STAT, Start date: 11/28/11 15:35:00, Stop date: 11/28/11 15:35:00 Ativan 0 No Arif Domenico 2 mg, 1 Mem [...] 6-09 mL, Route: l 20:35: IVP, Drug [place] 00 form: INJ, ONCE, Priority: STAT, Start date: 11/28/11 15:35:00, Stop date: 11/28/11 15:35:00 Ativan No Arif Domenico 2 mg, 1 Mem oria 6-09 mL, Route: l 20:35: IVP, Drug [place] 00 form: INJ, ONCE, Priority: STAT, Start date: 11/28/11 15:35:00, Stop date: 11/28/11 15:35:00 Novolin R Yes Hughes-Jason 8 unit, M emoria 100 3-30 [place] SUB-Q, l units/mL 17:47: [place] Q12H, 2 He rmann injectable 42 Pu vial, solution Substituti on Allowed, SOLN Novolin R Yes Hughes-Jason 8 unit, M emoria 100 3-30 [place] SUB-Q, l units/mL 17:47: [place] Q12H, 2 He rmann injectable 42 Pu vial, solution Substituti on Allowed, SOLN Novolin R Yes Hughes-Jason 8 unit, M emoria 100 3-30 [place] SUB-Q, l units/mL 17:47: [place] Q12H, 2 He rmann injectable 42 Pu vial, solution Substituti on Allowed, SOLN Novolin R Yes Hughes-Jason 8 unit, M emoria 100 3-30 [place] SUB-Q, l units/mL 17:47: [place] Q12H, 2 He rmann injectable 42 Pu vial, solution Substituti on Allowed, SOLN Novolin R Yes Hughes-Jason 8 unit, M emoria 100 3-30 [place] SUB-Q, l units/mL 17:47: [place] Q12H, 2 He rmann injectable 42 Pu vial, solution Substituti on Allowed, SOLN Novolin N 2011- Yes Hughes-Jason 10 unit, Memoria 100 3-30 [place] SUB-Q, l units/mL 17:46: [place] Bedtime, H ermann subcutaneou 27 Pu 10 ml, s injection Substituti on Allowed, SUSP Novolin N Yes Hughes-Jason 10 unit, Memoria 100 3-30 [place] SUB-Q, l units/mL 17:46: [place] Bedtime, H ermann subcutaneou 27 Pu 10 ml, s injection Substituti on Allowed, SUSP Novolin N Yes Hughes-Jason 10 unit, Memoria 100 3-30 [place] SUB-Q, l units/mL 17:46: [place] Bedtime, H ermann subcutaneou 27 Pu 10 ml, s injection Substituti on Allowed, SUSP Novolin N Yes Hughes-Jason 10 unit, Memoria 100 3-30 [place] SUB-Q, l units/mL 17:46: [place] Bedtime, H ermann subcutaneou 27 Pu 10 ml, s injection Substituti on Allowed, SUSP Novolin N Yes Hughes-Jason 10 unit, Memoria 100 3-30 [place] SUB-Q, l units/mL 17:46: [place] Bedtime, H ermann subcutaneou 27 Pu 10 ml, s injection Substituti on Allowed, SUSP Novolin N Yes Hughes-Jason 14 unit, Memoria 100 3-30 [place] SUB-Q, l units/mL 17:44: [place] QAM, 1 Her braden subcutaneou 37 Pu vial, s injection Substituti on Allowed, SUSP Novolin N Yes Hughes-Jason 14 unit, Memoria 100 3-30 [place] SUB-Q, l units/mL 17:44: [place] QAM, 1 Her braden subcutaneou 37 Pu vial, s injection Substituti on Allowed, SUSP Novolin N Yes Hughes-Jason 14 unit, Memoria 100 3-30 [place] SUB-Q, l units/mL 17:44: [place] QAM, 1 Her braden subcutaneou 37 Pu vial, s injection Substituti on Allowed, SUSP Novolin N 2011-0 Yes Hughes-Jason 14 unit, Memoria 100 3-30 [place] SUB-Q, l units/mL 17:44: [place] QAM, 1 Her braden subcutaneou 37 Pu vial, s injection Substituti on Allowed, SUSP Novolin N 2011-0 Yes Hughes-Jason 14 unit, Memoria 100 3-30 [place] SUB-Q, l units/mL 17:44: [place] QAM, 1 Her braden subcutaneou 37 Pu vial, s injection Substituti on Allowed, SUSP magnesium 2011-0 No Hughes-Jason 400 mg, 1 Memoria oxide 3-30 [place] tab, l 14:55: [place] Route: PO, Her braden 00 Pu Drug form: TAB, ONCE, Priority: STAT, Start date: 09/18/11 9:55:00, Stop date: 09/18/11 9:55:00 magnesium 2011-0 No Hughes-Jason 400 mg, 1 Memoria oxide 3-30 [place] tab, l 14:55: Dawson Route: PO, Her braden 00 Pu Drug form: TAB, ONCE, Priority: STAT, Start date: 09/18/11 9:55:00, Stop date: 09/18/11 9:55:00 magnesium 2011-0 No Hughes-Jason 400 mg, 1 Memoria oxide 3-30 [place] tab, l 14:55: Dawson Route: PO, Her braden 00 Pu Drug form: TAB, ONCE, Priority: STAT, Start date: 09/18/11 9:55:00, Stop date: 09/18/11 9:55:00 magnesium 2011-0 No Hughes-Jason 400 mg, 1 Memoria oxide 3-30 [place] tab, l 14:55: Dawson Route: PO, Her braden 00 Pu Drug form: TAB, ONCE, Priority: STAT, Start date: 09/18/11 9:55:00, Stop date: 09/18/11 9:55:00 magnesium 2011-0 No Hughes-Jason 400 mg, 1 Memoria oxide 3-30 [place] tab, l 14:55: Dawson Route: PO, Her braden 00 Pu Drug form: TAB, ONCE, Priority: STAT, Start date: 09/18/11 9:55:00, Stop date: 09/18/11 9:55:00 Insulin 2011-0 No Hughes-Jason 8 unit, Mem oria regular 3-30 [place] 0.08 mL, l 14:22: Dawson Route: Pu SUB-Q, Drug form: SOLN, ONCE, Priority: STAT, Start date: 09/18/11 9:22:00, Stop date: 09/18/11 9:22:00 Insulin 2011-0 No Hughes-Jason 8 unit, Mem oria regular 3-30 [place] 0.08 mL, l 14:22: [place] Route: Pu SUB-Q, Drug form: SOLN, ONCE, Priority: STAT, Start date: 09/18/11 9:22:00, Stop date: 09/18/11 9:22:00 Insulin 2011-0 No Hughes-Jason 8 unit, Mem oria regular 3-30 [place] 0.08 mL, l 14:22: [place] Route: Pu SUB-Q, Drug form: SOLN, ONCE, Priority: STAT, Start date: 09/18/11 9:22:00, Stop date: 09/18/11 9:22:00 Insulin 2011-0 No Hughes-Jason 8 unit, Mem oria regular 3-30 [place] 0.08 mL, l 14:22: Dawson Route: Pu SUB-Q, Drug form: SOLN, ONCE, Priority: STAT, Start date: 09/18/11 9:22:00, Stop date: 09/18/11 9:22:00 Insulin 2011-0 No Hughes-Jason 8 unit, Mem oria regular 3-30 [place] 0.08 mL, l 14:22: Dawson Route: Pu SUB-Q, Drug form: SOLN, ONCE, Priority: STAT, Start date: 09/18/11 9:22:00, Stop date: 09/18/11 9:22:00 Lactated 2011-0 No Hughes-Jason 1,000 mL, Memoria Ringers 3-30 [place] Rate: l (Bolus) IV 14:16: [place] 1,000 He rmann 1,000 mL 00 Pu ml/hr, Infuse over: 1 hr, Route: IV, Total Volume: 1,000, Bolus Dose, Priority: STAT, Start date: 09/18/11 9:16:00, Duration: 1 doses or times, Stop date: 09/18/11 10:15:00 Lactated 2012-0 No Hughes-Jason 1,000 mL, Memoria Ringers 3-30 [place] Rate: l (Bolus) IV 14:16: Dawson 1,000 He rmann 1,000 mL 00 Pu ml/hr, Infuse over: 1 hr, Route: IV, Total Volume: 1,000, Bolus Dose, Priority: STAT, Start date: 09/18/11 9:16:00, Duration: 1 doses or times, Stop date: 09/18/11 10:15:00 Lactated 2012-0 No Hughes-Jason 1,000 mL, Memoria Ringers 3-30 [place] Rate: l (Bolus) IV 14:16: Dawson 1,000 He rmann 1,000 mL 00 Pu ml/hr, Infuse over: 1 hr, Route: IV, Total Volume: 1,000, Bolus Dose, Priority: STAT, Start date: 09/18/11 9:16:00, Duration: 1 doses or times, Stop date: 09/18/11 10:15:00 Lactated 2012-0 No Hughes-Jason 1,000 mL, Memoria Ringers 3-30 [place] Rate: l (Bolus) IV 14:16: Dawson 1,000 He rmann 1,000 mL 00 Pu ml/hr, Infuse over: 1 hr, Route: IV, Total Volume: 1,000, Bolus Dose, Priority: STAT, Start date: 09/18/11 9:16:00, Duration: 1 doses or times, Stop date: 09/18/11 10:15:00 Lactated 2012-0 No Hughes-Jason 1,000 mL, Memoria Ringers 3-30 [place] Rate: l (Bolus) IV 14:16: Dawson 1,000 He rmann 1,000 mL 00 Pu ml/hr, Infuse over: 1 hr, Route: IV, Total Volume: 1,000, Bolus Dose, Priority: STAT, Start date: 09/18/11 9:16:00, Duration: 1 doses or times, Stop date: 09/18/11 10:15:00 Sodium 2012-0 No Hughes-Jason 1,000 mL, Me moria Chloride 3-30 [place] Rate: l 0.9% 14:06: [place] 1,000 Vin (Bolus) IV 00 Pu ml/hr, 1000 mL Infuse over: 1 hr, Route: IV, kg, Total Volume: 1,000, Bolus Dose, Priority: STAT, Start date: 09/18/11 9:06:00, Duration: 1 doses or times, Stop date: 09/18/11 10:05:00 Sodium 2012-0 No Hughes-Jason 1,000 mL, Me moria Chloride 3-30 [place] Rate: l 0.9% 14:06: [place] 1,000 Vin (Bolus) IV 00 Pu ml/hr, 1000 mL Infuse over: 1 hr, Route: IV, kg, Total Volume: 1,000, Bolus Dose, Priority: STAT, Start date: 09/18/11 9:06:00, Duration: 1 doses or times, Stop date: 09/18/11 10:05:00 Sodium 2012-0 No Hughes-Jason 1,000 mL, Me moria Chloride 3-30 [place] Rate: l 0.9% 14:06: [place] 1,000 Vin (Bolus) IV 00 Pu ml/hr, 1000 mL Infuse over: 1 hr, Route: IV, kg, Total Volume: 1,000, Bolus Dose, Priority: STAT, Start date: 09/18/11 9:06:00, Duration: 1 doses or times, Stop date: 09/18/11 10:05:00 Sodium 2012-0 No Hughes-Jason 1,000 mL, Me moria Chloride 3-30 [place] Rate: l 0.9% 14:06: [place] 1,000 Vin (Bolus) IV 00 Pu ml/hr, 1000 mL Infuse over: 1 hr, Route: IV, kg, Total Volume: 1,000, Bolus Dose, Priority: STAT, Start date: 09/18/11 9:06:00, Duration: 1 doses or times, Stop date: 09/18/11 10:05:00 Sodium 2012-0 No Hughes-Jason 1,000 mL, Me moria Chloride 3-30 [place] Rate: l 0.9% 14:06: [place] 1,000 [place] (Bolus) IV 00 Pu ml/hr, 1000 mL Infuse over: 1 hr, Route: IV, kg, Total Volume: 1,000, Bolus Dose, Priority: STAT, Start date: 09/18/11 9:06:00, Duration: 1 doses or times, Stop date: 09/18/11 10:05:00 sulfamethox 2012-0 Yes Substituti Memoria azole 3-30 on Allowed l 14:04: Vin 60 sulfamethox 2012-0 Yes Substituti Memoria azole 3-30 on Allowed l 14:04: [place] 58 sulfamethox 2012-0 Yes Substituti Memoria azole 3-30 on Allowed l 14:04: [place] 58 sulfamethox 2012-0 Yes Substituti Memoria azole 3-30 on Allowed l 14:04: [place] 58 sulfamethox 2012-0 Yes Substituti Memoria azole 3-30 on Allowed l 14:04: Vin 58 Sodium 2012-0 No Hughes-Jason 1,000 mL, Me moria Chloride 3-30 [place] Rate: l 0.9% 13:56: [place] 1,000 [place] (Bolus) IV 00 Pu ml/hr, 1000 mL Infuse over: 1 hr, Route: IV, kg, Total Volume: 1,000, Bolus Dose, Priority: STAT, Start date: 09/18/11 8:56:00, Duration: 1 doses or times, Stop date: 09/18/11 9:55:00 Sodium 2012-0 No Hughes-Jason 1,000 mL, Me moria Chloride 3-30 [place] Rate: l 0.9% 13:56: [place] 1,000 [place] (Bolus) IV 00 Pu ml/hr, 1000 mL Infuse over: 1 hr, Route: IV, kg, Total Volume: 1,000, Bolus Dose, Priority: STAT, Start date: 09/18/11 8:56:00, Duration: 1 doses or times, Stop date: 09/18/11 9:55:00 Sodium 2012-0 No Hughes-Jason 1,000 mL, Me moria Chloride 3-30 [place] Rate: l 0.9% 13:56: [place] 1,000 Vin (Bolus) IV 00 Pu ml/hr, 1000 mL Infuse over: 1 hr, Route: IV, kg, Total Volume: 1,000, Bolus Dose, Priority: STAT, Start date: 09/18/11 8:56:00, Duration: 1 doses or times, Stop date: 09/18/11 9:55:00 Sodium 2012-0 No Hughes-Jason 1,000 mL, Me moria Chloride 3-30 [place] Rate: l 0.9% 13:56: [place] 1,000 Vin (Bolus) IV 00 Pu ml/hr, 1000 mL Infuse over: 1 hr, Route: IV, kg, Total Volume: 1,000, Bolus Dose, Priority: STAT, Start date: 09/18/11 8:56:00, Duration: 1 doses or times, Stop date: 09/18/11 9:55:00 Sodium 2012-0 No Hughes-Jason 1,000 mL, Me moria Chloride 3-30 [place] Rate: l 0.9% 13:56: Dawson 1,000 Vin (Bolus) IV 00 Pu ml/hr, 1000 mL Infuse over: 1 hr, Route: IV, kg, Total Volume: 1,000, Bolus Dose, Priority: STAT, Start date: 09/18/11 8:56:00, Duration: 1 doses or times, Stop date: 09/18/11 9:55:00 clindamycin 2012-0 No Eber L 300 mg, 2 Memoria 3-21 Anabelle cap, l 21:00: Route: PO, [place] 00 Drug form: CAP, Q8H, Start date: 09/09/11 16:00:00, Duration: 30 day, Stop date: 10/09/11 8:00:00 clindamycin 2012-0 No Eber L 300 mg, 2 Memoria 3-21 Anabelle cap, l 21:00: Route: PO, [place] 00 Drug form: CAP, Q8H, Start date: 09/09/11 16:00:00, Duration: 30 day, Stop date: 10/09/11 8:00:00 clindamycin 2012-0 No Eber L 300 mg, 2 Memoria 3-21 Anabelle cap, l 21:00: Route: PO, Vin Drug form: CAP, Q8H, Start date: 09/09/11 16:00:00, Duration: 30 day, Stop date: 10/09/11 8:00:00 clindamycin 2011-0 No Eber L 300 mg, 2 Memoria 3-21 Anabelle cap, l 21:00: Route: PO, Vin 00 Drug form: CAP, Q8H, Start date: 09/09/11 16:00:00, Duration: 30 day, Stop date: 10/09/11 8:00:00 clindamycin 2011-0 No Eber L 300 mg, 2 Memoria 3-21 Anabelle cap, l 21:00: Route: PO, [place] 00 Drug form: CAP, Q8H, Start date: 09/09/11 16:00:00, Duration: 30 day, Stop date: 10/09/11 8:00:00 Colace 100 2011-0 Yes Luna 100 mg, 1 Memoria mg oral 3-21 Amelia cap, PO, l capsule 18:47: [place] BID, 60 Her braden 19 cap, Substituti on Allowed, CAP Colace 100 0 Yes Luna 100 mg, 1 Memoria mg oral 3-21 Amelia cap, PO, l capsule 18:47: [place] BID, 60 Her braden 19 cap, Substituti [...] 3-21 Amelia cap, PO, l capsule 18:47: [place] BID, 60 Her braden 19 cap, Substituti [...] 55 cap, Substituti on Allowed, CAP clindamycin 2011- Yes Luna 300 mg, 2 Memoria 150 mg oral 3-21 Amelia cap, PO, l capsule 18:46: [place] Q8H, 30 Her braden 55 cap, Substituti [...] braden 55 cap, Substituti on Allowed, CAP [place] Yes Luna 1 tab, PO, Memoria 10/325 oral 3-21 Amelia Q4H, PRN, l tablet 18:46: Zeeshan 30 tab, Herm naeem 36 Pain, Substituti on Allowed, Maintenanc e, TAB [place] Yes Luna 1 tab, PO, Memoria 10/325 oral 3-21 Amelia Q4H, PRN, l tablet 18:46: [place] 30 tab, Herm naeem 36 Pain, Substituti on Allowed, Maintenanc e, TAB [place] Yes Luna 1 tab, PO, Memoria 10/325 oral 3-21 Amelia Q4H, PRN, l tablet 18:46: [place] 30 tab, Herm naeem 36 Pain, Substituti on Allowed, Maintenanc e, TAB [place] Yes Luna 1 tab, PO, Memoria 10/325 oral 3-21 Amelia Q4H, PRN, l tablet 18:46: [place] 30 tab, Herm naeem 36 Pain, Substituti on Allowed, Maintenanc e, TAB [place] Yes Luna 1 tab, PO, Memoria 10/325 oral 3-21 Amelia Q4H, PRN, l tablet 18:46: [place] 30 tab, Herm naeem 36 Pain, Substituti on Allowed, Maintenanc e, TAB [place] 2012-0 No Hollie Donavan 1 tab, Mendoza janice 10/325 oral 3-21 Mahi Route: PO, l tablet 09:00: Drug Form: Nidia nn 00 TAB, Q4H, Start date: 09/09/11 4:00:00, Duration: 30 day, Stop date: 10/09/11 0:00:00 [place] 2011-0 No Hollie Donavan 1 tab, Mendoza janice 10/325 oral 3-21 Mahi Route: PO, l tablet 09:00: Drug Form: Nidia nn 00 TAB, Q4H, Start date: 09/09/11 4:00:00, Duration: 30 day, Stop date: 10/09/11 0:00:00 [place] 0 No Hollie Donavan 1 tab, Mendoza janice 10/325 oral 3-21 Mahi Route: PO, l tablet 09:00: Drug Form: Nidia nn 00 TAB, Q4H, Start date: 09/09/11 4:00:00, Duration: 30 day, Stop date: 10/09/11 0:00:00 [place] 0 No Hollie Donavan 1 tab, Mendoza janice 10/325 oral 3-21 Mahi Route: PO, l tablet 09:00: Drug Form: Nidia nn 00 TAB, Q4H, Start date: 09/09/11 4:00:00, Duration: 30 day, Stop date: 10/09/11 0:00:00 [place] 0 No Hollie Donavan 1 tab, Mendoza [...] 3-19 Omidvar tab, l 15:30: Route: PO, [place] 00 Drug form: TAB, Daily, Start date: [...] 3-19 Omidvar tab, l 15:30: Route: PO, [place] 00 Drug form: TAB, Daily, Start date: [...] moria 3-19 Josefina 0.1 mL, l 14:19: Farrell Route: [place] 00 IVP, Drug form: INJ, Q2MIN, PRN [...] Josefina 0.25 mL, l 14:19: Gavin Route: [place] 00 IVP, Drug form: INJ, Q5Min, PRN Pain Score 4-6, Start date: 09/07/11 9:19:00, Duration: 5 doses or times, Stop date: Limited # of times acetaminoph 2012-0 No Gayle 15 mL, M emoria en-hydrocod [...] moria 3-19 Josefina 0.1 mL, l 14:19: Farrell Route: [place] 00 IVP, Drug form: INJ, Q2MIN, PRN [...] Josefina Route: PO, l one 325 14:19: Farrell Drug Form: He rmann mg-10 mg/15 00 [...] Josefina 0.1 mL, l 14:19: Gavin Route: [place] 00 IVP, Drug form: INJ, Q2MIN, PRN [...] ne 3-19 Josefina 0.25 mL, l 14:19: Farrell Route: [place] 00 IVP, Drug form: INJ, Q5Min, PRN Pain Score 4-6, Start date: 09/07/11 9:19:00, Duration: 5 doses or times, Stop date: Limited # of times acetaminoph No Gayle 15 mL, M emoria en-hydrocod 3-19 Josefina Route: PO, l one 325 14:19: Farrell Drug Form: He rmann mg-10 mg/15 00 [...] Memoria 3-19 Josefina mL, Route: l 14:19: Farrell IVP, Drug Jake n 00 form: INJ, ONCE, PRN Nausea & Vomiting, Start date: 09/07/11 9:19:00 hydromorpho No Gayle 0.5 mg, Memoria ne 3-19 Josefina 0.25 mL, l 14:19: Farrell Route: Vin 00 IVP, Drug form: INJ, Q5Min, PRN Pain Score 4-6, Start date: 09/07/11 9:19:00, Duration: 5 doses or times, Stop date: Limited # of times acetaminoph No Gayle 15 mL, M emoria en-hydrocod 3-19 Josefina Route: PO, l one 325 14:19: Farrell Drug Form: He rmann mg-10 mg/15 00 [...] Josefina 0.1 mL, l 14:19: Gavin Route: [place] 00 IVP, Drug form: INJ, Q2MIN, PRN [...] Josefina 0.25 mL, l 14:19: Gavin Route: [place] 00 IVP, Drug form: INJ, Q5Min, PRN [...] Rate: 125 l 1,000 mL 14:06: ml/hr, [place] 00 Infuse over: 8 hr, Route: IV, [...] Rate: 125 l 1,000 mL 14:06: ml/hr, [place] 00 Infuse over: 8 hr, Route: IV, Dosing Weight 68.182 kg, Total Volume: 1,000, Start date: 09/07/11 9:06:00, Duration: 30 day, Stop date: 10/07/11 9:05:00 clindamycin 2011-0 No Maximo R 600 mg, Memoria 3-19 Arias Route: l 13:31: IVPB, Vin 00 ONCE, Start date: 09/07/11 8:31:00, Stop date: 09/07/11 8:31:00 clindamycin 2012-0 No Maximo R 600 mg, Memoria 3-19 Arias Route: l 13:31: IVPB, [place] 00 ONCE, Start date: 09/07/11 8:31:00, Stop date: 09/07/11 8:31:00 clindamycin 2012-0 No Maximo R 600 mg, Memoria 3-19 Arias Route: l 13:31: IVPB, [place] 00 ONCE, Start date: 09/07/11 8:31:00, Stop date: 09/07/11 8:31:00 clindamycin No Maximo R 600 mg, Memoria 3-19 Arias Route: l 13:31: IVPB, Vin 00 ONCE, Start date: 09/07/11 8:31:00, Stop date: 09/07/11 8:31:00 clindamycin No Maximo R 600 mg, Memoria [...] Stop date: 10/06/11 23:59:00 normal 0 No Yuyr W 1,000 mL, M emoria saline 0.9% [...] W 1,000 mL, M emoria saline 0.9% 318 [place] Rate: 100 l IV 1000 mL [...] 3-17 Wong tab, l 04:00: Route: PO, [place] 00 Drug form: ECTAB, Daily, PRN Constipati [...] 3-17 Wong tab, l 04:00: Route: PO, [place] 00 Drug form: ECTAB, Daily, PRN Constipati [...] Duration: 30 day, Stop date: 10/04/11 18:10:00 [place] 2012-0 No Mahammad 1 tab, Memori a 10/325 oral 3-16 Simeon Route: PO, l tablet 17:00: Dez Drug Form: Tyrel rmann 00 TAB, Q4H, Start date: 09/04/11 12:00:00, Duration: 30 day, Stop date: 10/04/11 8:00:00 [place] 2012-0 No Mahammad 1 tab, Memori a 10/325 oral 3-16 Simeon Route: PO, l tablet 17:00: Dez Drug Form: He rmann 00 TAB, Q4H, Start date: 09/04/11 12:00:00, Duration: 30 day, Stop date: 10/04/11 8:00:00 [place] 2012-0 No Mahammad 1 tab, Memori a 10/325 oral 3-16 Simeon Route: PO, l tablet 17:00: Dez Drug Form: Tyrel rmann 00 TAB, Q4H, Start date: 09/04/11 12:00:00, Duration: 30 day, Stop date: 10/04/11 8:00:00 [place] 2012-0 No Mahammad 1 tab, Memori a 10/325 oral 3-16 Simeon Route: PO, l tablet 17:00: Dez Drug Form: Tyrel rmann 00 TAB, Q4H, Start date: 09/04/11 12:00:00, Duration: 30 day, Stop date: 10/04/11 8:00:00 [place] 2012-0 No Mahammad 1 tab, Memori a 10/325 oral 3-16 Simeon Route: PO, l tablet 17:00: Dez Drug Form: Tyrel dubonann 00 TAB, Q4H, Start date: 09/04/11 12:00:00, [...] Kavon mL, Route: l 14:50: IVP, Drug [place] 00 form: INJ, ONCE, PRN Nausea & [...] 3-16 Kavon 0.1 mL, l 14:50: Route: [place] 00 IVP, Drug form: INJ, Q2MIN, PRN [...] Stop date: 10/04/11 9:49:00 naloxone 2012-0 No Rosailno 0.04 mg, Me moria 3-16 Kavon 0.1 [...] 10cc/hr, l - site 1 14:50: Route: [place] 400 mL 00 NERVE BLOCK, Start date: [...] 10cc/hr, l - site 1 14:50: Route: [place] 400 mL 00 NERVE BLOCK, Start date: 09/04/11 9:50:00 400 mL, Duration: 30 day, Stop date: 10/04/11 9:49:00 naloxone 2012-0 No Rosalino 0.04 mg, Me moria 3-16 Kavon 0.1 mL, l 14:50: Route: Vin 00 IVP, Drug form: INJ, Q2MIN, PRN Narcotic Reversal, Start date: 09/04/11 9:50:00, Duration: 30 day, Stop date: 10/04/11 9:49:00 [place] No [place] 1 tab, Memoria 10/325 oral 3-16 Omidvar Route: PO, l tablet 14:49: Drug Form: Nidia nn 00 TAB, Q4H, PRN Pain, Start date: 09/04/11 9:49:00, Stop date: 10/04/11 9:48:00 [place] 0 No [place] 1 tab, Memoria 10/325 oral 3-16 Omidvar Route: PO, l tablet 14:49: Drug Form: Nidia nn 00 TAB, Q4H, PRN Pain, Start date: 09/04/11 9:49:00, Stop date: 10/04/11 9:48:00 [place] No [place] 1 tab, Memoria 10/325 oral 3-16 Omidvar Route: PO, l tablet 14:49: Drug Form: Nidia nn 00 TAB, Q4H, PRN Pain, Start date: 09/04/11 9:49:00, Stop date: 10/04/11 9:48:00 [place] No [place] 1 tab, Memoria 10/325 oral 3-16 Omidvar Route: PO, l tablet 14:49: Drug Form: Nidia nn 00 TAB, Q4H, PRN Pain, Start date: 09/04/11 9:49:00, Stop date: 10/04/11 9:48:00 [place] No [place] 1 tab, Memoria 10/325 oral 3-16 Omidvar Route: PO, l tablet 14:49: Drug Form: Nidia nn 00 TAB, Q4H, PRN Pain, Start date: 09/04/11 9:49:00, Stop date: 10/04/11 9:48:00 labetalol No Gregory F 5 mg, Mendoza janice 3-16 Puga Route: IV, l 14:40: ONCE, [place] 00 Start date: 09/04/11 9:40:00, Stop date: [...] 3-16 Kavon 0.25 mL, l 13:37: Route: [place] IVP, Drug form: INJ, Q5Min, PRN Pain [...] 3-16 Kavon 0.25 mL, l 13:37: Route: [place] 00 IVP, Drug form: INJ, Q5Min, PRN Pain Score 4-6, Start date: 09/04/11 8:37:00, Duration: 5 doses or times, Stop date: Limited # of times ondansetron 2011-0 No Hollie 4 mg, 2 Me moria 3-16 Beck mL, Route: l 13:37: Hayden IVP, Drug Nidia nn 00 form: INJ, ONCE, PRN Nausea & Vomiting, Start date: 09/04/11 8:37:00 naloxone 2011- No Hollie 0.04 mg, Mendoza janice 3-16 Beck 0.1 mL, l 13:37: Hayden Route: [place] IVP, Drug form: INJ, Q2MIN, PRN Narcotic [...] 3-16 Kavon 0.25 mL, l 13:37: Route: [place] IVP, Drug form: INJ, Q5Min, PRN Pain Score 4-6, Start date: 09/04/11 8:37:00, Duration: 5 doses or times, Stop date: Limited # of times clindamycin 2011-0 No Eber L 600 mg, 4 Memoria 3-15 Anabelle mL, Route: l 16:00: IVPB, [place] 00 [id number], Start date: 09/03/11 11:00:00, Duration: 30 day, Stop date: 10/03/11 8:00:00 clindamycin 2011-0 No Eber L 600 mg, 4 Memoria 3-15 Anabelle mL, Route: l 16:00: IVPB, Vin 00 [id number], Start date: 09/03/11 11:00:00, Duration: 30 day, Stop date: 10/03/11 8:00:00 clindamycin 2012-0 No Eber L 600 mg, 4 Memoria 3-15 Anabelle mL, Route: l 16:00: IVPB, [place] 00 [id number], Start date: 09/03/11 11:00:00, Duration: 30 day, Stop date: 10/03/11 8:00:00 clindamycin 2011-0 No Eber L 600 mg, 4 Memoria 3-15 Anabelle mL, Route: l 16:00: IVPB, Vin 00 [id number], Start date: 09/03/11 11:00:00, Duration: 30 day, Stop date: 10/03/11 8:00:00 clindamycin 2011-0 No Eber L 600 mg, 4 Memoria 3-15 Anabelle mL, Route: l 16:00: IVPB, [place] 00 [id number], Start date: 09/03/11 11:00:00, Duration: 30 day, Stop date: 10/03/11 8:00:00 potassium 2011-0 No [place] 40 mEq, 2 M emoria chloride 3-15 Omidvar tab, l 13:39: Route: PO, Vin 00 Drug form: ERTAB, ONCE, Start date: 09/03/11 8:39:00, Stop date: 09/03/11 8:39:00 potassium 2011-0 No [place] 40 mEq, 2 M emoria chloride 3-15 Omidvar tab, l 13:39: Route: PO, [place] 00 Drug form: ERTAB, ONCE, Start date: [...] date: 09/03/11 8:39:00, Stop date: 09/03/11 8:39:00 [place] 5/325 2011-0 No Rosalino 1 tab, M emoria oral tablet -15 Kavon Route: PO, l 05:00: Drug Form: Vin 00 TAB, Q4H, Start date: 09/03/11 0:00:00, Duration: 30 day, Stop date: 10/02/11 20:00:00 [place] 5/325 2011-0 No Rosalino 1 tab, M emoria oral tablet - Kavon Route: PO, l 05:00: Drug Form: [place] 00 TAB, Q4H, Start date: 09/03/11 0:00:00, Duration: 30 day, Stop date: 10/02/11 20:00:00 [place] 5/325 2011-0 No Rosalino 1 tab, M emoria oral tablet - Kavon Route: PO, l 05:00: Drug Form: [place] 00 TAB, Q4H, Start date: 09/03/11 0:00:00, Duration: 30 day, Stop date: 10/02/11 20:00:00 [place] 5/325 2011-0 No Rosalino 1 tab, M emoria oral tablet - Kavon Route: PO, l 05:00: Drug Form: [place] 00 TAB, Q4H, Start date: 09/03/11 0:00:00, Duration: 30 day, Stop date: 10/02/11 20:00:00 [place] 5/325 2011-0 No Rosalino 1 tab, M emoria oral tablet - Kavon Route: PO, l 05:00: Drug Form: Vin 00 TAB, Q4H, Start date: 09/03/11 0:00:00, Duration: 30 day, Stop date: 10/02/11 20:00:00 Geodon 2012-0 No Eber L 120 mg, 3 Memoria 3-15 Anabelel cap, l 02:00: Route: PO, [place] 00 Drug form: CAP, Bedtime, Start date: [...] 3-15 Anabelle cap, l 02:00: Route: PO, [place] 00 Drug form: CAP, Bedtime, Start date: [...] 3-14 Anabelle cap, l 17:00: Route: PO, [place] 00 Drug form: ERCAP, Daily, Give qAM after today's dose., Start date: 09/02/11 12:00:00, Duration: 30 day, Stop date: 10/02/11 9:00:00 Effexor XR 2012-0 No Eber L 75 mg, 1 Memoria 3-14 Anabelle cap, l 17:00: Route: PO, [place] 00 Drug form: ERCAP, Daily, Give qAM [...] 3-14 Anabelle cap, l 17:00: Route: PO, [place] 00 Drug form: ERCAP, Daily, Give qAM after today's dose., Start date: 09/02/11 12:00:00, Duration: 30 day, Stop date: 10/02/11 9:00:00 Effexor XR 2012-0 No Eber L 75 mg, 1 Memoria 3-14 Anabelle cap, l 17:00: Route: PO, Vin 00 Drug form: ERCAP, Daily, Give qAM after today's dose., Start date: 09/02/11 12:00:00, Duration: 30 day, Stop date: 10/02/11 9:00:00 [place] 5/325 2011-0 No Rosalino 1 tab, M emoria oral tablet 09-01 Kavon Route: PO, l 16:25: Drug Form: Vin 00 TAB, Q4H, PRN Pain, Start date: 09/02/11 11:25:00, Duration: 30 day, Stop date: 10/02/11 11:24:00 [place] 5/325 2011-0 No Rosalino 1 tab, M emoria oral tablet 09-01 Kavon Route: PO, l 16:25: Drug Form: Vin 00 TAB, Q4H, PRN Pain, Start date: 09/02/11 11:25:00, Duration: 30 day, Stop date: 10/02/11 11:24:00 [place] 5/325 2011-0 No Rosalino 1 tab, M emoria oral tablet 09-01 Kavon Route: PO, l 16:25: Drug Form: Vin 00 TAB, Q4H, PRN Pain, Start date: 09/02/11 11:25:00, Duration: 30 day, Stop date: 10/02/11 11:24:00 [place] 5/325 2011-0 No Rosalino 1 tab, M emoria oral tablet 3-14 Kavon Route: PO, l 16:25: Drug Form: Vin 00 TAB, Q4H, PRN Pain, Start date: 09/02/11 11:25:00, Duration: 30 day, Stop date: 10/02/11 11:24:00 [place] No Rosalino 1 tab, M emoria oral [...] Omidvar mL, Route: l 16:15: IVPB, Drug [place] 00 form: INJ, ONCE, Start date: 09/02/11 11:15:00, Stop date: 09/02/11 11:15:00 magnesium 2011-0 No [place] 4 gm, 50 Me moria sulfate 3-14 Omidvar mL, Route: l 16:15: IVPB, Drug [place] 00 form: INJ, ONCE, Start date: 09/02/11 11:15:00, Stop date: 09/02/11 11:15:00 magnesium 2011-0 No [place] 4 gm, 50 Me moria sulfate 3-14 Omidvar mL, Route: l 16:15: IVPB, Drug [place] 00 form: INJ, ONCE, Start date: 09/02/11 [...] 14:00: IVPB, Drug Vin 00 form: INJ, [id number], Start date: 09/02/11 9:00:00, Duration: 30 day, Stop date: 10/01/11 21:00:00 Lovenox 2012-0 No Missael 40 mg, 0.4 Mem oria 3-14 Movva mL, Route: l 14:00: SUB-Q, Vin Drug form: INJ, Daily, Start date: 09/02/11 9:00:00, Duration: 30 day, Stop date: 10/01/11 9:00:00 vancomycin 2011-0 No Eber L 1 gm, Memoria 3-14 Anabelle Route: l 14:00: IVPB, Drug Vin 00 form: INJ, [id number], Start date: 09/02/11 9:00:00, Duration: 30 day, Stop date: 10/01/11 21:00:00 Lovenox 2012-0 No Missael 40 mg, 0.4 Mem oria 3-14 Movva mL, Route: l 14:00: SUB-Q, [place] Drug form: INJ, Daily, Start date: 09/02/11 9:00:00, Duration: 30 day, Stop date: 10/01/11 9:00:00 vancomycin 2011-0 No Eber L 1 gm, Memoria 3-14 Anabelle Route: l 14:00: IVPB, Drug Vin 00 form: INJ, [id number], Start date: 09/02/11 9:00:00, Duration: 30 day, Stop date: 10/01/11 21:00:00 Lovenox 2012-0 No Missael 40 mg, 0.4 Mem oria 3-14 Movva mL, Route: l 14:00: SUB-Q, Vin 00 Drug form: INJ, Daily, Start date: 09/02/11 9:00:00, Duration: 30 day, Stop date: 10/01/11 9:00:00 vancomycin 2011-0 No Eber L 1 gm, Memoria 3-14 Anabelle Route: l 14:00: IVPB, Drug form: INJ, [id number], Start date: 09/02/11 9:00:00, Duration: 30 day, Stop date: 10/01/11 21:00:00 Lovenox 2011-0 No Missael 40 mg, 0.4 Mem oria 3-14 Movva mL, Route: l 14:00: SUB-Q, [place] 00 Drug form: INJ, Daily, Start date: 09/02/11 9:00:00, Duration: 30 day, Stop date: 10/01/11 9:00:00 vancomycin 2011-0 No Eber L 1 gm, Memoria 3-14 Anabelle Route: l 14:00: IVPB, Drug form: INJ, [id number], Start date: 09/02/11 9:00:00, Duration: 30 day, Stop date: 10/01/11 21:00:00 clindamycin 2011-0 No Eber L 600 mg, 4 Memoria (SCIP) 3-14 Anabelle mL, Route: l 10:00: IVPB, [place] 00 [id number], Start date: 09/02/11 5:00:00, Duration: [...] 3-14 Anabelle mL, Route: l 10:00: IVPB, [place] 00 [id number], Start date: 09/02/11 5:00:00, Duration: [...] 2011-0 No [place] 15 unit, Mendoza janice 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 3-14 Omidvar 0.15 mL, l H 02:00: Route: Vin SUB-Q, Drug form: INJ, Q12H, Start date: 09/01/11 21:00:00, Stop date: 10/01/11 9:00:00 insulin 2011-0 No [place] 15 unit, Mendoza janice 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 3-14 Omidvar 0.15 mL, l H 02:00: Route: Vin SUB-Q, Drug form: INJ, Q12H, Start date: 09/01/11 21:00:00, Stop date: 10/01/11 9:00:00 insulin 2011-0 No [place] 15 unit, Mendoza janice 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 3-14 Omidvar 0.15 mL, l H 02:00: Route: Vin SUB-Q, Drug form: INJ, Q12H, Start date: 09/01/11 21:00:00, Stop date: 10/01/11 9:00:00 insulin 2011-0 No [place] 15 unit, Mendoza janice 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 3-14 Omidvar 0.15 mL, l H 02:00: Route: Vin SUB-Q, Drug form: INJ, Q12H, Start date: 09/01/11 21:00:00, Stop date: 10/01/11 9:00:00 insulin 2011-0 No [place] 15 unit, Mendoza janice 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 3-14 Omidvar 0.15 mL, l H 02:00: [...] 3-14 Barbra Route: l 01:07: Feliciano IVP, [place] 00 Q5Min, PRN Pain Score 4-6, Start date: 09/01/11 20:07:00, Duration: 5 doses or times, Stop date: Limited # of times naloxone No Mariaelena-Corea 0.04 mg, Memoria 3-14 Barbra Route: l 01:07: Feliciano IVP, [place] 00 Q2MIN, PRN Narcotic Reversal, Start date: [...] 3-14 Barbra Route: l 01:07: Feliciano IVP, [place] 00 Q5Min, PRN Elevated BP, Start date: 09/01/11 20:07:00, Duration: 5 doses or times, Stop date: Limited # of times hydrALAZINE No Mariaelena-Corea 5 mg, Memoria 3-14 Barbra Route: l 01:07: Feliciano IVP, [place] 00 Q5Min, PRN Elevated BP, Start date: 09/01/11 20:07:00, Duration: 4 doses or times, Stop date: Limited # of times hydromorpho No Mariaelena-Corea 0.5 mg, Memoria ne 3-14 Barbra Route: l 01:07: Feilciano IVP, [place] 00 Q5Min, PRN Pain Score 4-6, Start date: 09/01/11 20:07:00, Duration: 5 doses or times, Stop date: Limited # of times naloxone No Mariaelena-Corea 0.04 mg, Memoria 3-14 Barbra Route: l 01:07: Feliciano IVP, [place] 00 Q2MIN, PRN Narcotic Reversal, Start date: [...] Barbra Route: l 01:07: Feliciano IVP, ONCE, [place] 00 PRN Nausea & Vomiting, Start date: [...] 3-14 Barbra Route: l 01:07: Feliciano IVP, [place] 00 Q2MIN, PRN Narcotic Reversal, Start date: [...] Barbra Route: l 01:07: Feliciano IVP, ONCE, [place] 00 PRN Nausea & Vomiting, Start date: 09/01/11 20:07:00 labetalol No Mariaelena-Corea 5 mg, Me moria 3-14 Barbra Route: l 01:07: Feliciano IVP, [place] 00 Q5Min, PRN Elevated BP, Start date: 09/01/11 20:07:00, Duration: 5 doses or times, Stop date: Limited # of times hydrALAZINE No Mariaelena-Corea 5 mg, Memoria 3-14 Barbra Route: l 01:07: Feliciano IVP, [place] 00 Q5Min, PRN Elevated BP, Start date: 09/01/11 20:07:00, Duration: 4 doses or times, Stop date: Limited # of times hydromorpho No Mariaelena-Corea 0.5 mg, Memoria ne 3-14 Barbra Route: l 01:07: Feliciano IVP, [place] 00 Q5Min, PRN Pain Score 4-6, Start [...] Barbra Route: l 01:07: Feliciano IVP, ONCE, [place] 00 PRN Nausea & Vomiting, Start date: 09/01/11 20:07:00 labetalol No Mariaelena-Corea 5 mg, Me moria 3-14 Barbra Route: l 01:07: Feliciano IVP, [place] 00 Q5Min, PRN Elevated BP, Start date: 09/01/11 20:07:00, Duration: 5 doses or times, Stop date: Limited # of times hydrALAZINE No Mariaelena-Corea 5 mg, Memoria 3-14 Barbra Route: l 01:07: Feliciano IVP, [place] 00 Q5Min, PRN Elevated BP, Start date: [...] Barbra Route: l 01:07: Feliciano IVP, PRN, [place] 00 PRN Benzodiaze pine Reversal, Initial dose, Start date: 09/01/11 20:07:00, Duration: 30 day, Stop date: 10/01/11 20:06:00 ondansetron No Mariaelena-Corea 4 mg, Memoria 3-14 Barbra Route: l 01:07: Feliciano IVP, ONCE, [place] 00 PRN Nausea & Vomiting, Start date: 09/01/11 20:07:00 vancomycin No Mele 1 gm, Mem oria 3-14 Gauvain Route: l 01:00: IVPB, Drug [place] 00 form: INJ, [id number], Start date: 09/01/11 20:00:00, Duration: 30 day, Stop date: 10/01/11 8:00:00 vancomycin No Mele 1 gm, Mem oria 3-14 [place] Route: l 01:00: IVPB, Drug [place] 00 form: INJ, [id number], Start date: 09/01/11 20:00:00, Duration: 30 day, Stop date: 10/01/11 8:00:00 vancomycin No Mele 1 gm, Mem oria 3-14 [place] Route: l 01:00: IVPB, Drug [place] 00 form: INJ, [id number], Start date: 09/01/11 20:00:00, Duration: 30 day, Stop date: 10/01/11 8:00:00 vancomycin No Mele 1 gm, Mem oria 3-14 [place] Route: l 01:00: IVPB, Drug Vin 00 form: INJ, [id number], Start date: 09/01/11 20:00:00, Duration: 30 day, Stop date: 10/01/11 8:00:00 vancomycin 2012-0 No Mele 1 gm, Mem oria 3-14 [place] Route: l 01:00: IVPB, Drug Vin 00 form: INJ, [id number], Start date: 09/01/11 20:00:00, Duration: 30 day, Stop date: 10/01/11 8:00:00 Lactated 2011-0 No Charbel A 1,000 mL, Memoria Ringers IV 3-14 Wong Rate: 125 l 1,000 mL 00:55: ml/hr, [place] 00 Infuse over: 8 hr, Route: IV, Dosing Weight 68.2 kg, Total Volume: 1,000, Start date: 09/01/11 19:55:00, Duration: 30 day, Stop date: 10/01/11 19:54:00 Lactated 2011-0 No Charbel A 1,000 mL, Memoria Ringers IV 3-14 Wong Rate: 125 l 1,000 mL 00:55: ml/hr, [place] 00 Infuse over: 8 hr, Route: IV, Dosing Weight 68.2 kg, Total Volume: 1,000, Start date: 09/01/11 19:55:00, Duration: 30 day, Stop date: 10/01/11 19:54:00 Lactated 2011-0 No Charbel A 1,000 mL, Memoria Ringers IV 3-14 Wong Rate: 125 l 1,000 mL 00:55: ml/hr, [place] 00 Infuse over: 8 hr, Route: IV, Dosing Weight 68.2 kg, Total Volume: 1,000, Start date: 09/01/11 19:55:00, Duration: 30 day, Stop date: 10/01/11 19:54:00 Lactated 2011-0 No Charbel A 1,000 mL, Memoria Ringers IV 3-14 Wong Rate: 125 l 1,000 mL 00:55: ml/hr, [place] 00 Infuse over: 8 hr, Route: IV, Dosing Weight 68.2 kg, Total Volume: 1,000, Start date: 09/01/11 19:55:00, Duration: 30 day, Stop date: 10/01/11 19:54:00 Lactated 2011-0 No Charbel A 1,000 mL, Memoria Ringers IV 3-14 Wong Rate: 125 l 1,000 mL 00:55: ml/hr, [place] 00 Infuse over: 8 hr, Route: IV, Dosing Weight 68.2 kg, Total Volume: 1,000, Start date: 09/01/11 19:55:00, Duration: 30 day, Stop date: 10/01/11 19:54:00 vancomycin 2011-0 No Missael 1 gm, Memor ia 3-14 Movva Route: l 00:00: IVPB, Drug [place] 00 form: INJ, [id number], Start date: 09/01/11 19:00:00, Duration: 30 day, Stop date: 10/01/11 7:00:00 vancomycin 2011-0 No Missael 1 gm, Memor ia 3-14 Movva Route: l 00:00: IVPB, Drug [place] 00 form: INJ, [id number], Start date: 09/01/11 19:00:00, Duration: 30 day, Stop date: 10/01/11 7:00:00 vancomycin 2011-0 No Missael 1 gm, Memor ia 3-14 Movva Route: l 00:00: IVPB, Drug [place] 00 form: INJ, [id number], Start date: 09/01/11 19:00:00, Duration: 30 day, Stop date: 10/01/11 7:00:00 vancomycin 2011-0 No Missael 1 gm, Memor ia 3-14 Movva Route: l 00:00: IVPB, Drug Vin 00 form: INJ, [id number], Start date: 09/01/11 19:00:00, Duration: 30 day, Stop date: 10/01/11 7:00:00 vancomycin 2011-0 No Missael 1 gm, Memor ia 3-14 Movva Route: l 00:00: IVPB, Drug [place] 00 form: INJ, [id number], Start date: 09/01/11 19:00:00, Duration: 30 day, Stop date: 10/01/11 7:00:00 insulin 2011-0 No Missael 6 unit, Memori a aspart 3-13 Movva 0.06 mL, l 23:23: Route: [place] 00 SUB-Q, Drug form: SOLN, TID-Before Meals, [...] Movva mL, Route: l 23:23: IVP, Drug [place] 00 Form: INJ, PRN, PRN Blood Glucose Results, Start date: 09/01/11 18:23:00, Duration: 30 day, Stop date: 10/01/11 18:22:00 insulin 2011-0 No Missael 6 unit, Memori a aspart 3-13 Movva 0.06 mL, l 23:23: Route: [place] SUB-Q, Drug form: SOLN, TID-Before Meals, PRN Blood Glucose Results, Start date: 09/01/11 18:23:00, Duration: 30 day, Stop date: 10/01/11 18:22:00 glucagon 2012-0 No Missael 1 mg, Memoria 3-13 Movva Route: IM, l 23:23: Drug form: [place] PDR/INJ, PRN, PRN Blood Glucose Results, Start date: 09/01/11 18:23:00, Duration: 30 day, Stop date: 10/01/11 18:22:00 Dextrose 2011-0 No Missael 25 gm, 50 Mem oria 50% Syringe 3-13 Movva mL, Route: l 23:23: IVP, Drug [place] 00 Form: INJ, PRN, PRN Blood Glucose Results, Start date: 09/01/11 18:23:00, Duration: 30 day, Stop date: 10/01/11 18:22:00 insulin 2012-0 No Missael 6 unit, Memori a aspart 3-13 Movva 0.06 mL, l 23:23: Route: [place] 00 SUB-Q, Drug form: SOLN, TID-Before Meals, PRN Blood Glucose Results, Start date: 09/01/11 18:23:00, Duration: 30 day, Stop date: 10/01/11 18:22:00 glucagon 2012-0 No Missael 1 mg, Memoria 3-13 Movva Route: IM, l 23:23: Drug form: [place] 00 PDR/INJ, PRN, PRN Blood Glucose Results, Start date: 09/01/11 18:23:00, Duration: 30 day, Stop date: 10/01/11 18:22:00 Dextrose 2011-0 No Missael 25 gm, 50 Mem oria 50% Syringe 3-13 Movva mL, Route: l 23:23: IVP, Drug [place] 00 Form: INJ, PRN, PRN Blood Glucose [...] Movva mL, Route: l 23:23: IVP, Drug [place] 00 Form: INJ, PRN, PRN Blood Glucose [...] 09/01/11 16:14:00, Stop date: 10/01/11 16:13:00 morphine 2011-0 No Daja Shannan 2 mg, 1 M emoria Sulfate 3-13 Beni mL, Route: l 21:14: IVP, Drug Vin 00 form: INJ, Q4H, PRN Severe Pain, Start date: 09/01/11 16:14:00, Stop date: 10/01/11 16:13:00 morphine 2011-0 No Djaa Shannan 2 mg, 1 M emoria Sulfate 3-13 Beni mL, Route: l 21:14: IVP, Drug [place] 00 form: INJ, Q4H, PRN Severe Pain, Start date: 09/01/11 16:14:00, Stop date: 10/01/11 16:13:00 morphine 2011-0 No Daja Shannan 2 mg, [...] mL, Me moria Ringers IV 3-13 Manuel [place] Rate: 100 l 1,000 mL 19:03: ml/hr, [place] 00 Infuse over: 10 hr, Route: IV, Dosing Weight 68.182 kg, Total Volume: 1,000, Start date: 09/01/11 14:03:00, Duration: 30 day, Stop date: 10/01/11 14:02:00 Lactated 2012-0 No Cesar 1,000 mL, Me moria Ringers IV 3-13 Manuel [place] Rate: 100 l 1,000 mL 19:03: ml/hr, Vin 00 Infuse over: 10 hr, Route: IV, Dosing Weight 68.182 kg, Total Volume: 1,000, Start date: 09/01/11 14:03:00, Duration: 30 day, Stop date: 10/01/11 14:02:00 Lactated 2012-0 No Cesar 1,000 mL, Me moria Ringers IV 3-13 Manuel [place] Rate: 100 l 1,000 mL 19:03: ml/hr, [place] 00 Infuse over: 10 hr, Route: IV, Dosing Weight 68.182 kg, Total Volume: 1,000, Start date: 09/01/11 14:03:00, Duration: 30 day, Stop date: 10/01/11 14:02:00 Lactated 2012-0 No Cesar 1,000 mL, Me moria Ringers IV 3-13 Manuel [place] Rate: 100 l 1,000 mL 19:03: ml/hr, [place] 00 Infuse over: 10 hr, Route: IV, Dosing Weight 68.182 kg, Total Volume: 1,000, Start date: 09/01/11 14:03:00, Duration: 30 day, Stop date: 10/01/11 14:02:00 Lactated 2012-0 No Cesar 1,000 mL, Me moria Ringers IV 3-13 Manuel [place] Rate: 100 l 1,000 mL 19:03: ml/hr, [place] 00 Infuse over: 10 hr, Route: IV, [...] Lactated 2012-0 No [place] 2,000 mL, Mendoza janiec Ringers 3-13 [place] Rate: 100 l (Bolus) [...] Madden 0.08 mL, l 15:28: Gurinder Route: [place] SUB-Q, Drug form: SOLN, ONCE, Priority: STAT, [...] Madden 0.08 mL, l 15:28: Gurinder Route: [place] SUB-Q, Drug form: SOLN, ONCE, Priority: STAT, Start date: 09/01/11 10:28:00, Stop date: 09/01/11 10:28:00 Insulin 2011-0 No [place] 8 unit, Memoria regular 3-13 Madden 0.08 mL, l 15:28: Gurinder Route: [place] SUB-Q, Drug form: SOLN, ONCE, Priority: STAT, Start date: 09/01/11 10:28:00, Stop date: 09/01/11 10:28:00 Sodium 2012-0 No [place] 1,000 mL, Memori a Chloride 3-13 [place] Rate: l 0.9% 14:53: Gurinder 1,000 [place] (Bolus) IV 00 ml/hr, 1,000 mL Infuse [...] Madden Rate: l 0.9% 14:53: Gurinder 1,000 [place] (Bolus) IV 00 ml/hr, 1,000 mL Infuse [...] L 1,000 mL, M emoria Chloride 3-13 [place] Rate: l 0.9% 10:41: 1,000 [place] (Bolus) IV 00 ml/hr, 1000 mL Infuse over: 1 hr, Route: IV, Dosing Weight 68.182 kg, Total Volume: 1,000, Bolus Dose, Priority: STAT, Start date: 09/01/11 5:41:00, Duration: 1 doses or times, Stop date: 09/01/11 6:40:00 Sodium 2011-0 No Bee L 1,000 mL, M emoria Chloride 3-13 [place] Rate: l 0.9% 10:41: 1,000 Vin (Bolus) IV 00 ml/hr, 1000 mL Infuse over: 1 hr, Route: IV, Dosing Weight 68.182 kg, Total Volume: 1,000, Bolus Dose, Priority: STAT, Start date: 09/01/11 5:41:00, Duration: 1 doses or times, Stop date: 09/01/11 6:40:00 Sodium 2012-0 No Bee L 1,000 mL, M emoria Chloride 3-13 [place] Rate: l 0.9% 10:41: 1,000 Vin (Bolus) IV 00 ml/hr, 1000 mL Infuse over: 1 hr, Route: IV, Dosing Weight 68.182 kg, Total Volume: 1,000, Bolus Dose, Priority: STAT, Start date: 09/01/11 5:41:00, Duration: 1 doses or times, Stop date: 09/01/11 6:40:00 Sodium 2011-0 No Bee L 1,000 mL, M emoria Chloride 3-13 [place] Rate: l 0.9% 10:41: 1,000 Vin (Bolus) IV 00 ml/hr, 1000 mL Infuse over: 1 hr, Route: IV, Dosing Weight 68.182 kg, Total Volume: 1,000, Bolus Dose, Priority: STAT, Start date: 09/01/11 5:41:00, Duration: 1 doses or times, Stop date: 09/01/11 6:40:00 Sodium 2011-0 No Bee L 1,000 mL, M emoria Chloride 3-13 [place] Rate: l 0.9% 10:41: 1,000 [place] (Bolus) IV 00 ml/hr, 1000 mL Infuse over: 1 hr, Route: IV, Dosing Weight 68.182 kg, Total Volume: 1,000, Bolus Dose, Priority: STAT, Start date: 09/01/11 5:41:00, Duration: 1 doses or times, Stop date: 09/01/11 6:40:00 ondansetron 2011-0 No Bee L 4 mg, Memoria 3-13 [place]rosse Route: l 09:06: IVP, Drug [place] 00 form: INJ, ONCE, Priority: STAT, Start date: 09/01/11 4:06:00, Stop date: 09/01/11 4:06:00 morphine 2011-0 No Bee L 4 mg, Mem oria Sulfate 3-13 [place] Route: l 09:06: IVP, ONCE, [place] 00 Priority: STAT, Start date: 09/01/11 4:06:00, Stop date: 09/01/11 4:06:00 ondansetron 2011-0 No Bee L 4 mg, Memoria 3-13 [place] Route: l 09:06: IVP, Drug Vin 00 form: INJ, ONCE, Priority: STAT, Start date: 09/01/11 4:06:00, Stop date: 09/01/11 4:06:00 morphine 2011-0 No Bee L 4 mg, Mem oria Sulfate - [place] Route: l 09:06: IVP, ONCE, [place] 00 Priority: STAT, Start date: 09/01/11 4:06:00, Stop date: 09/01/11 4:06:00 ondansetron 2011-0 No Bee L 4 mg, Memoria - [place] Route: l 09:06: IVP, Drug Vin 00 form: INJ, ONCE, Priority: STAT, Start date: 09/01/11 4:06:00, Stop date: 09/01/11 4:06:00 morphine 2011-0 No Bee L 4 mg, Mem oria Sulfate 08-31 [place] Route: l 09:06: IVP, ONCE, Vin 00 Priority: STAT, Start date: 09/01/11 4:06:00, Stop date: 09/01/11 4:06:00 ondansetron 2011-0 No Bee L 4 mg, Memoria - [place] Route: l 09:06: IVP, Drug Vin 00 form: INJ, ONCE, Priority: STAT, Start date: 09/01/11 4:06:00, Stop date: 09/01/11 4:06:00 morphine 2011-0 No Bee L 4 mg, Mem oria Sulfate 08-31 [place] Route: l 09:06: IVP, ONCE, Vin 00 Priority: STAT, Start date: 09/01/11 4:06:00, Stop date: 09/01/11 4:06:00 ondansetron 2011-0 No Bee L 4 mg, Memoria - [place] Route: l 09:06: IVP, Drug Vin 00 form: INJ, ONCE, Priority: STAT, Start date: 09/01/11 4:06:00, Stop date: 09/01/11 4:06:00 morphine 2011-0 No Bee L 4 mg, Mem oria Sulfate - [place] Route: l 09:06: IVP, ONCE, Vin 00 Priority: STAT, Start date: 09/01/11 4:06:00, Stop date: 09/01/11 4:06:00 Sodium 2011-0 No Bee L 1,000 mL, M emoria Chloride 3-13 [place] Rate: l 0.9% 08:42: 1,000 [place] (Bolus) IV 00 ml/hr, 1000 mL Infuse over: 1 hr, Route: IV, Dosing Weight 68.182 kg, Total Volume: 1,000, Bolus Dose, Priority: STAT, Start date: 09/01/11 3:42:00, Duration: 1 doses or times, Stop date: 09/01/11 4:41:00 Sodium 2012-0 No Bee L 1,000 mL, M emoria Chloride 3- [place] Rate: l 0.9% 08:42: 1,000 [place] (Bolus) IV 00 ml/hr, 1000 mL Infuse over: 1 hr, Route: IV, Dosing Weight 68.182 kg, Total Volume: 1,000, Bolus Dose, Priority: STAT, Start date: 09/01/11 3:42:00, Duration: 1 doses or times, Stop date: 09/01/11 4:41:00 Sodium 2011-0 No Bee L 1,000 mL, M emoria Chloride 3- [place] Rate: l 0.9% 08:42: 1,000 Vin (Bolus) IV 00 ml/hr, 1000 mL Infuse over: 1 hr, Route: IV, Dosing Weight 68.182 kg, Total Volume: 1,000, Bolus Dose, Priority: STAT, Start date: 09/01/11 3:42:00, Duration: 1 doses or times, Stop date: 09/01/11 4:41:00 Sodium 2011-0 No Bee L 1,000 mL, M emoria Chloride 3- [place] Rate: l 0.9% 08:42: 1,000 [place] (Bolus) IV 00 ml/hr, 1000 mL Infuse over: 1 hr, Route: IV, Dosing Weight 68.182 kg, Total Volume: 1,000, Bolus Dose, Priority: STAT, Start date: 09/01/11 3:42:00, Duration: 1 doses or times, Stop date: 09/01/11 4:41:00 Sodium 2012-0 No Bee L 1,000 mL, M emoria Chloride 3-13 [place] Rate: l 0.9% 08:42: 1,000 [place] (Bolus) IV 00 ml/hr, 1000 mL Infuse over: 1 hr, Route: IV, Dosing Weight 68.182 kg, Total Volume: 1,000, Bolus Dose, Priority: STAT, Start date: 09/01/11 3:42:00, Duration: 1 doses or times, Stop date: 09/01/11 4:41:00 Insulin 2011-0 No Bee L 8 unit, Me moria regular 3-13 [place] 0.08 mL, l 08:30: Route: [place] 00 IVP, Drug form: SOLN, ONCE, Priority: STAT, Start date: 09/01/11 3:30:00, Stop date: 09/01/11 3:30:00 Insulin 2011-0 No Bee L 8 unit, Me moria regular 3-13 [place] 0.08 mL, l 08:30: Route: [place] 00 IVP, Drug form: SOLN, ONCE, Priority: STAT, Start date: 09/01/11 3:30:00, Stop date: 09/01/11 3:30:00 Insulin 2011-0 No Bee L 8 unit, Me moria regular 3-13 [place] 0.08 mL, l 08:30: Route: [place] 00 IVP, Drug form: SOLN, ONCE, Priority: STAT, Start date: 09/01/11 3:30:00, Stop date: 09/01/11 3:30:00 Insulin 2011-0 No Bee L 8 unit, Me moria regular 3-13 [place] 0.08 mL, l 08:30: Route: Vin 00 IVP, Drug form: SOLN, ONCE, Priority: STAT, Start date: 09/01/11 3:30:00, Stop date: 09/01/11 3:30:00 Insulin 2011-0 No Bee L 8 unit, Me moria regular 3-13 [place] 0.08 mL, l 08:30: Route: Vin 00 IVP, Drug form: SOLN, ONCE, Priority: STAT, Start date: 09/01/11 3:30:00, Stop date: 09/01/11 3:30:00 Sodium 2011-0 No Bee L 1,000 mL, M emoria Chloride 3-13 [place] Rate: l 0.9% 07:29: 1,000 Vin (Bolus) IV 00 ml/hr, 1,000 mL Infuse over: 1 hr, Route: IV, Dosing Weight 68.182 kg, Total Volume: 1,000, Bolus Dose, Priority: STAT, Start date: 09/01/11 2:29:00, Duration: 1 doses or times, Stop date: 09/01/11 3:28:00 Sodium 2012-0 No Bee L 1,000 mL, M emoria Chloride 3-13 [place] Rate: l 0.9% 07:29: 1,000 Vin (Bolus) IV 00 ml/hr, 1,000 mL Infuse over: 1 hr, Route: IV, Dosing Weight 68.182 kg, Total Volume: 1,000, Bolus Dose, Priority: STAT, Start date: 09/01/11 2:29:00, Duration: 1 doses or times, Stop date: 09/01/11 3:28:00 Sodium 2012-0 No Bee L 1,000 mL, M emoria Chloride 3-13 [place] Rate: l 0.9% 07:29: 1,000 Vin (Bolus) IV 00 ml/hr, 1,000 mL Infuse over: 1 hr, Route: IV, Dosing Weight 68.182 kg, Total Volume: 1,000, Bolus Dose, Priority: STAT, Start date: 09/01/11 2:29:00, Duration: 1 doses or times, Stop date: 09/01/11 3:28:00 Sodium 2011-0 No Bee L 1,000 mL, M emoria Chloride 3-13 [place] Rate: l 0.9% 07:29: 1,000 [place] (Bolus) IV 00 ml/hr, 1,000 mL Infuse [...] 3-04 Akmal tab, l 15:00: Route: PO, [place] Drug form: ERTAB, BID, Start date: 08/23/11 9:00:00, Duration: 2 doses or times, Stop date: 08/23/11 17:00:00 potassium 2011-0 No Brooks Noam 40 mEq, 2 Memoria chloride 3-04 Akmal tab, l 15:00: Route: PO, [place] 00 Drug form: ERTAB, BID, Start date: 08/23/11 9:00:00, Duration: 2 doses or times, Stop date: 08/23/11 17:00:00 potassium 2011-0 No Brooks Noam 40 mEq, 2 Memoria chloride 3-04 Akmal tab, l 15:00: Route: PO, [place] 00 Drug form: ERTAB, BID, Start date: [...] Stop date: 08/23/11 17:00:00 amLODipine 2011-0 Yes Brooks Noam 5 mg, [...] Substituti on Allowed, TAB amLODipine 2011- Yes Brooks Noam 5 mg, 1 Memoria [...] Akmal SUB-Q, l units/mL 14:42: BID, 3 [place] subcutaneou 04 vial, 3, s injection 3, Substituti on Allowed, SUSP Novolin N Yes Didier Fangs 18 Units, Memoria 100 3-04 [place] SUB-Q, l units/mL 14:42: BID, 3 Vin subcutaneou 04 vial, 3, s injection 3, Substituti on Allowed, SUSP Novolin N Yes Didier Fangs 18 Units, Memoria 100 3-04 [place] SUB-Q, l units/mL 14:42: BID, 3 Vin subcutaneou 04 vial, 3, s injection 3, Substituti on Allowed, SUSP Novolin N Yes Didier Fangs 18 Units, Memoria 100 3-04 [place] SUB-Q, l units/mL 14:42: BID, 3 [place] subcutaneou 04 vial, 3, s injection 3, Substituti on Allowed, SUSP Novolin N Yes Didier Fangs 18 Units, Memoria 100 3-04 [place] SUB-Q, l units/mL 14:42: BID, 3 Vin subcutaneou 04 vial, 3, s injection 3, Substituti on Allowed, SUSP insulin Yes Didier Fangs 5 Units, Memoria regular 3-04 Akmal SUB-Q, l human 14:40: TID, 30 [place] recombinant 10 vial, 3, 100 3, units/mL Substituti injectable on solution Allowed, before breakfast lunch and dinner, SOLNbefore breakfast lunch and dinner insulin Yes Didier Ramonais 5 Units, Memoria regular 3-04 [place] SUB-Q, l human 14:40: TID, 30 [place] recombinant 10 vial, 3, 100 3, units/mL Substituti injectable on solution Allowed, before breakfast lunch and dinner, SOLNbefore breakfast lunch and dinner insulin Yes Didier Ramonais 5 Units, Memoria regular 3-04 [place] SUB-Q, l human 14:40: TID, 30 Vin recombinant 10 vial, 3, 100 3, units/mL Substituti injectable on solution Allowed, before breakfast lunch and dinner, SOLNbefore breakfast lunch and dinner insulin 2012-0 Yes Brooks Noam 5 Units, Memoria regular 3-04 [place] SUB-Q, l human 14:40: TID, 30 [place] recombinant 10 vial, 3, 100 3, units/mL Substituti injectable on solution Allowed, before breakfast lunch and dinner, SOLNbefore breakfast lunch and dinner insulin 2012-0 Yes Brooks Noam 5 Units, Memoria regular 3-04 [place] SUB-Q, l human 14:40: TID, 30 [place] recombinant 10 vial, 3, 100 3, units/mL [...] Stop date: 08/23/11 10:00:00 potassium 2012-0 No Brooks Noam 20 mEq, Memoria chloride 3-04 Akm[place] 100 mL, l 14:00: Route: Vin IVPB, Drug form: INJ, Q2H, Start date: 08/23/11 8:00:00, Duration: 2 doses or times, Stop date: 08/23/11 10:00:00 potassium 2011-0 No Brooks Noam 20 mEq, Memoria chloride 3-04 [place] 100 mL, l 14:00: Route: [place] 00 IVPB, Drug form: INJ, Q2H, Start date: 08/23/11 8:00:00, Duration: 2 doses or times, Stop date: 08/23/11 10:00:00 potassium 2012-0 No Brooks Noam 20 mEq, Memoria chloride 3-04 Akm[place] 100 mL, l 14:00: Route: [place] 00 IVPB, Drug form: INJ, Q2H, Start [...] 3-04 Akmal Route: IV, l 12:29: ONCE, [place] 00 Start date: 08/23/11 6:29:00, Stop date: 08/23/11 6:29:00 potassium 2011-0 No Brooks Noam 40 mEq, Memoria chloride 3-04 [place] Route: IV, l 12:29: ONCE, [place] 00 Start date: 08/23/11 6:29:00, Stop date: [...] Akmal mL, Route: l 12:26: IVPB, Drug [place] 00 form: INJ, ONCE, Total dose = [...] Akmal mL, Route: l 12:26: IVPB, Drug [place] 00 form: INJ, ONCE, Total dose = 2 gm, Start date: 08/23/11 6:26:00, Duration: 1 doses or times, Stop date: 08/23/11 6:26:00 magnesium 2011-0 No Brooks Noam 2 gm, 50 Memoria sulfate 3-04 Akmal mL, Route: l 12:26: IVPB, Drug [place] 00 form: INJ, ONCE, Total dose = [...] Rodriguez 10 mL, l 16:25: Ahmed Route: [place] 00 IVPB, ONCE, Start date: 08/22/11 10:25:00, Stop date: 08/22/11 10:25:00 calcium 2012-0 No [place] 1,000 mg, Mem oria gluconate 3-03 Rodriguez 10 mL, l 16:25: Ahmed Route: [place] 00 IVPB, ONCE, Start date: 08/22/11 10:25:00, Stop date: 08/22/11 10:25:00 calcium 2012-0 No [place] 1,000 mg, Mem oria gluconate 3-03 Rodriguez 10 mL, l 16:25: Ahmed Route: Vin 00 IVPB, ONCE, Start date: 08/22/11 10:25:00, Stop date: 08/22/11 10:25:00 calcium 2012-0 No [place] 1,000 mg, Mem oria gluconate 3-03 Rodriguez 10 mL, l 16:25: Ahmed Route: [place] 00 IVPB, ONCE, Start date: 08/22/11 10:25:00, Stop date: 08/22/11 10:25:00 potassium 2012-0 No Brooks Noam 40 mEq, [...] or times, Stop date: 08/22/11 7:26:00 magnesium 2011-0 No Brooks Noam 2 gm, 50 Memoria sulfate 3-03 [place]km[place] mL, Route: l 13:26: IVPB, Drug [place] 00 form: INJ, ONCE, Total dose = 2 gm, Start date: 08/22/11 7:26:00, Duration: 1 doses or times, Stop date: 08/22/11 7:26:00 magnesium 2011-0 No Brooks Noam 2 gm, 50 Memoria sulfate 3-03 [place] mL, Route: l 13:26: IVPB, Drug Vin 00 form: INJ, ONCE, Total dose = 2 gm, Start date: 08/22/11 7:26:00, Duration: 1 doses or times, Stop date: 08/22/11 7:26:00 magnesium 2011-0 No Brooks Noam 2 gm, 50 Memoria sulfate 3-03 [place]km[place] mL, Route: l 13:26: IVPB, Drug Vin 00 form: INJ, ONCE, Total dose = 2 gm, Start date: 08/22/11 7:26:00, Duration: 1 doses or times, Stop date: 08/22/11 7:26:00 magnesium 2011-0 No Brooks Noam 2 gm, [...] Yury 20 mEq, Me moria chloride 3-02 Gtao 100 mL, l 15:12: Rivero Route: Nidia [...] 3-02 Akmal tab, l 15:00: Route: PO, [place] Drug form: TAB, Daily, Start date: 08/21/11 9:00:00, Stop date: 09/19/11 9:00:00 lisinopril 2012-0 No Brooks Noam 40 mg, 2 Memoria 3-02 [place]km[place] tab, l 15:00: Route: PO, [place] Drug form: TAB, Daily, Start date: 08/21/11 9:00:00, Stop date: 09/19/11 9:00:00 lisinopril 2012-0 No Brooks Noam 40 mg, 2 Memoria 3-02 [place] tab, l 15:00: Route: PO, [place] Drug form: TAB, Daily, Start date: 08/21/11 9:00:00, Stop date: 09/19/11 9:00:00 lisinopril 2011-0 No Brooks Noam 40 mg, 2 Memoria 3-02 [place] tab, l 15:00: Route: PO, Vni 00 Drug form: TAB, Daily, Start date: [...] l 14:43: Rivero IVP, Drug He rmann 00 form: INJ, Q6H, PRN Hypertensi on, Start [...] Yury 1 mg, 1 Mem oria 3-02 Gtao tab, l 03:00: Rivero Route: PO, H [...] Rodriguez tab, l 20:30: Ahmed Route: PO, Jaek n 00 Drug form: TAB, Q6H, PRN Nausea & Vomiting, Start date: 08/20/11 14:30:00, Duration: 30 day, Stop date: 09/19/11 14:29:00 Compazine 2011-0 No [place] 5 mg, 1 Mem oria 3-01 Rodriguez tab, l 20:30: Ahmed Route: PO, Jake n 00 Drug form: TAB, Q6H, PRN Nausea & Vomiting, Start date: 08/20/11 14:30:00, Duration: 30 day, Stop date: 09/19/11 14:29:00 Compazine 2012-0 No [place] 5 mg, 1 Mem [...] mL, Route: l 17:15: Ahmed IVP, Drug [place] 00 form: INJ, Q8H, PRN Nausea, Start date: 08/20/11 11:15:00, Duration: 30 day, Stop date: 09/19/11 11:14:00 insulin 2011-0 No Yury 10 unit, 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 08-19 [place] Route: l H 16:00: Rivero SUB-Q, Nidia nn 00 ONCE, Start date: 08/20/11 10:00:00, Stop date: 08/20/11 10:00:00 insulin 2011-0 No Yury 10 unit, 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 08-19 [place] Route: l H 16:00: Rivero SUB-Q, Nidia nn 00 ONCE, Start date: 08/20/11 10:00:00, Stop date: 08/20/11 10:00:00 insulin 2011-0 No Yury 10 unit, 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 08-19 [place] Route: l H 16:00: Rivreo SUB-Q, Nidia nn 00 ONCE, Start date: 08/20/11 10:00:00, Stop date: 08/20/11 10:00:00 insulin 2011-0 No Yury 10 unit, 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 08-19 [place] Route: l H 16:00: Rivero SUB-Q, Nidia nn 00 ONCE, Start date: 08/20/11 10:00:00, Stop date: 08/20/11 10:00:00 insulin 2011-0 No Yury 10 unit, 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 08-19 [place] Route: l H 16:00: Rivero SUB-Q, Nidia nn 00 ONCE, Start date: 08/20/11 10:00:00, Stop date: 08/20/11 10:00:00 trazodone 2011-0 Yes 200 mg, 2 Mem oria 100 mg oral 3- tab, PO, l tablet 15:37: Bedtime, [place] 27 90 tab, Substituti on Allowed, TAB trazodone 2011-0 Yes 200 mg, 2 Mem oria 100 mg oral 3- tab, PO, l tablet 15:37: Bedtime, Vin 27 90 tab, Substituti on Allowed, TAB trazodone 2012-0 Yes 200 mg, 2 Mem oria 100 mg oral 3-01 tab, PO, l tablet 15:37: Bedtime, [place] 27 90 tab, Substituti on Allowed, TAB [...] tab, PO, l tablet 15:35: BID, 60 [place] 25 tab, Substituti on Allowed, TAB benztropine 2012-0 Yes 1 mg, 1 Mem oria 1 mg oral 3-01 tab, PO, l tablet 15:35: BID, 60 Vin 25 tab, Substituti on Allowed, TAB benztropine 2012-0 Yes 1 mg, 1 Mem oria 1 mg oral 3-01 tab, PO, l tablet 15:35: BID, 60 [place] 25 tab, Substituti on Allowed, TAB benztropine 2012-0 Yes 1 mg, 1 Mem oria 1 mg oral 3-01 tab, PO, l tablet 15:35: BID, 60 [place] 25 tab, Substituti on Allowed, TAB Geodon [...] insulin No Yury 10 unit, 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 3- [place] Route: l H 15:00: Rivero [...] 0 No Yury 75 mg, 1 Memoria 3-01 [place] cap, l 15:00: Rivero Route: PO, H ermann 00 Drug form: ERCAP, Daily, Start date: 08/20/11 9:00:00, Duration: 30 day, Stop date: 09/18/11 9:00:00 insulin 2011-0 No Yury 10 unit, 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 3-01 [place] Route: l H 15:00: Rivero [...] 2011-0 No Yury 10 unit, 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 3-01 [place] Route: l H 15:00: Rivero [...] 2011-0 No Yury 10 unit, 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 3-01 [place] Route: l H 15:00: Rivero [...] 2011-0 No Yury 10 unit, 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 3- [place] Route: l H 15:00: Rivero [...] 2011-0 No Yury 75 mg, 1 Memoria 3- [...] BID, Vin 23 Substituti on Allowed Insulin 0 No Brooks Noam 10 unit, Memoria regular 08-19 Akmal SUB-Q, l 09:28: BID, Vin 23 Substituti on Allowed Insulin 2011-0 No Brooks Noam 10 unit, Memoria regular 08-19 Akmal SUB-Q, l 09:28: BID, [place] 23 Substituti on Allowed Insulin 2011-0 No Brooks Noam 10 unit, Memoria regular 08-19 Akmal SUB-Q, l 09:28: BID, Vin 23 Substituti on Allowed Insulin 0 No Brooks Noam 10 unit, Memoria regular 08-19 Akmal SUB-Q, l 09:28: BID, [place] 23 Substituti on Allowed insulin 2011-0 No 10 unit, Memori a 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 3- SUB-Q, l H 09:26: BID, Vin 18 Substituti on Allowed insulin 2011-0 No 10 unit, Memori a 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 3- SUB-Q, l H 09:26: BID, [place] 18 Substituti on Allowed insulin 2011-0 No 10 unit, Memori a 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 3- SUB-Q, l H 09:26: BID, Vin 18 Substituti on Allowed insulin 2011- No 10 unit, Memori a 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 3- SUB-Q, l H 09:26: BID, Vin 18 Substituti on Allowed insulin 2011- No 10 unit, Memori a 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 3- SUB-Q, l H 09:26: BID, [place] 18 Substituti on Allowed NS 1,000 mL No Brooks Noam 1,000 mL, Memoria 08-19 [place] Rate: 150 l 09:06: ml/hr, Vin 00 Infuse over: 6.7 hr, Route: IV, Total Volume: 1,000, Start date: 08/20/11 3:06:00, Duration: 30 day, Stop date: 09/19/11 3:05:00 insulin 2011- No Yury 3 unit, Mendoza janice aspart 08-19 Gato 0.03 mL, l 09:06: Mat Route: Nidia nn 00 SUB-Q, Drug form: SOLN, Bedtime, PRN Blood Glucose Results, Start date: 08/20/11 3:06:00, Duration: 30 day, Stop date: 09/19/11 3:05:00 NS 1,000 mL 2011-0 No Brooks Noam 1,000 mL, Memoria 08-19 [...] Stop date: 09/19/11 3:05:00 NS 1,000 mL 0 No Brooks Noam 1,000 mL, Memoria 3- Akmal Rate: 150 l 09:06: ml/hr, [place] 00 Infuse over: 6.7 hr, Route: IV, [...] 3- Akmal Rate: 150 l 09:06: ml/hr, [place] 00 Infuse over: 6.7 hr, Route: IV, [...] Stop date: 09/19/11 3:05:00 NS 1,000 mL 0 No Brooks Noam 1,000 mL, Memoria 3-01 [...] mL, Route: l 09:00: [place] SUB-Q, Nidia montalvo 00 Drug form: INJ, Daily, Priority: Routine, Start date: 08/20/11 3:00:00, Duration: 30 day, Stop date: 09/18/11 9:00:00 insulin 2011-0 No Yury 18 unit, 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 3-01 Gato 0.18 mL, l H 08:58: [place] Route: Nidia montalvo 00 SUB-Q, Drug form: INJ, Q12H, Start date: 08/20/11 2:58:00, Stop date: 09/18/11 21:00:00 insulin 2011-0 No Yury 18 unit, 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 3-01 Gato 0.18 mL, l H 08:58: [place] Route: Nidia montalvo SUB-Q, Drug form: INJ, Q12H, Start date: 08/20/11 2:58:00, Stop date: 09/18/11 21:00:00 insulin 2011-0 No Yury 18 unit, 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 3-01 Gato 0.18 mL, l H 08:58: [place] Route: Nidia montalvo SUB-Q, Drug form: INJ, Q12H, Start date: 08/20/11 2:58:00, Stop date: 09/18/11 21:00:00 insulin 2011-0 No Yury 18 unit, 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 3-01 Gato 0.18 mL, l H 08:58: [place] Route: Nidia montalvo 00 SUB-Q, Drug form: INJ, Q12H, Start date: 08/20/11 2:58:00, Stop date: 09/18/11 21:00:00 insulin 2011-0 No Yury 18 unit, 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 3-01 Gato 0.18 mL, l H 08:58: Rviero Route: Nidia montalvo 00 SUB-Q, Drug form: INJ, Q12H, Start [...] janice regular 08-19 [place] Route: l 08:48: Rviero SUB-Q, Nidia nn 00 Bedtime, PRN Blood [...] 2011-0 No [facility] 25 [facility]-01 Gato mL, Route: l [...] No Hughes-Jason 4 mg, M emoria 08-19 [place] Route: l 07:42: [place] IVP, Drug Herm naeem 00 Pu form: INJ, ONCE, Priority: STAT, Start date: 08/20/11 1:42:00, Stop date: 08/20/11 1:42:00 ondansetron 2011-0 No Hughes-Jason 4 mg, emoria 08-19 [place] Route: l 07:42: [place] IVP, Drug Herm naeem 00 Pu form: INJ, ONCE, Priority: STAT, Start date: 08/20/11 1:42:00, Stop date: 08/20/11 1:42:00 ondansetron 2011-0 No Hughes-Jason 4 mg, emoria 08-19 [place] Route: l 07:42: [place] IVP, Drug Herm naeem 00 Pu form: INJ, ONCE, Priority: STAT, Start date: 08/20/11 1:42:00, Stop date: 08/20/11 1:42:00 ondansetron 2011-0 No Hughes-Jason 4 mg, emoria 08-19 [place] Route: l 07:42: [place] IVP, Drug Herm naeem 00 Pu form: INJ, ONCE, Priority: STAT, Start date: 08/20/11 1:42:00, Stop date: 08/20/11 1:42:00 ondansetron 2011-0 No Hughes-Jason 4 mg, M emoria 08-19 [place] Route: l 07:42: [place] IVP, Drug Herm naeem 00 Pu form: INJ, ONCE, Priority: STAT, Start date: 08/20/11 1:42:00, Stop date: 08/20/11 1:42:00 GI cocktail No Hughes-Jason 30 ml, Memoria 08-19 [place] Route: PO, l 05:12: [place] Drug Form: Her braden 00 Pu SUSP, ONCE, STAT, Start date: 08/19/11 23:12:00, Stop date: 08/19/11 23:12:00 GI cocktail No Hughes-Jason 30 ml, Memoria 08-19 [place] Route: PO, l 05:12: [place] Drug Form: Her braden 00 Pu SUSP, ONCE, STAT, Start date: 08/19/11 23:12:00, Stop date: 08/19/11 23:12:00 GI cocktail No Hughes-Jason 30 ml, Memoria 08-19 [place] Route: PO, l 05:12: [place] Drug Form: Her braden 00 Pu SUSP, ONCE, STAT, Start date: 08/19/11 23:12:00, Stop date: 08/19/11 23:12:00 GI cocktail No Hughes-Jason 30 ml, Memoria 08-19 [place] Route: PO, l 05:12: [place] Drug Form: Her braden 00 Pu SUSP, ONCE, STAT, Start date: 08/19/11 23:12:00, Stop date: 08/19/11 23:12:00 GI cocktail No Hughes-Jason 30 ml, Memoria 08-19 [place] Route: PO, l 05:12: [place] Drug Form: Her braden 00 Pu SUSP, ONCE, STAT, Start date: 08/19/11 23:12:00, Stop date: 08/19/11 23:12:00 ondansetron No Hughes-Jason 4 mg, M emoria 08-19 [place] Route: PO, l 05:10: [place] Drug form: Her braden 00 Pu TABDIS, ONCE, Priority: STAT, Start date: 08/19/11 23:10:00, Stop date: 08/19/11 23:10:00 Lactated 2011- No Hughes-Jason 1,000 mL, Memoria Ringers 08-19 [place] Rate: l (Bolus) IV 05:10: [place] 1,000 He [place] 1000 mL 00 Pu ml/hr, Infuse over: 1 hr, Route: IV, Total Volume: 1,000, Bolus Dose, Priority: STAT, Start date: 08/19/11 23:10:00, Duration: 1 doses or times, Stop date: 08/20/11 0:09:00 ondansetron 2012-0 No Hughes-Jason 4 mg, M emoria 3- [place] Route: PO, l 05:10: [place] Drug form: Her braden 00 Pu TABDIS, ONCE, Priority: STAT, Start date: 08/19/11 23:10:00, Stop date: 08/19/11 23:10:00 Lactated 2012-0 No Hughes-Jason 1,000 mL, Memoria Ring[place] 3- [place] Rate: l (Bolus) IV 05:10: [place] 1,000 He r[place] 1000 mL 00 Pu ml/hr, Infuse over: 1 hr, Route: IV, Total Volume: 1,000, Bolus Dose, Priority: STAT, Start date: 08/19/11 23:10:00, Duration: 1 doses or times, Stop date: 08/20/11 0:09:00 ondansetron 2012-0 No Hughes-Jason 4 mg, M emoria 3- [place] Route: PO, l 05:10: [place] Drug form: Her braden 00 Pu TABDIS, ONCE, Priority: STAT, Start date: 08/19/11 23:10:00, Stop date: 08/19/11 23:10:00 Lactated 2012-0 No Hughes-Jason 1,000 mL, Memoria Ringers 3- [place] Rate: l (Bolus) IV 05:10: [place] 1,000 He [place] 1000 mL 00 Pu ml/hr, Infuse over: 1 hr, Route: IV, Total Volume: 1,000, Bolus Dose, Priority: STAT, Start date: 08/19/11 23:10:00, Duration: 1 doses or times, Stop date: 08/20/11 0:09:00 ondansetron 2012-0 No Hughes-Jason 4 mg, M emoria 3- [place] Route: PO, l 05:10: [place] Drug form: Her braden 00 Pu TABDIS, ONCE, Priority: STAT, Start date: 08/19/11 23:10:00, Stop date: 08/19/11 23:10:00 Lactated 2011-0 No Hughes-Jason 1,000 mL, Memoria Ringers 3- [place] Rate: l (Bolus) IV 05:10: [place] 1,000 He rmann 1000 mL 00 Pu ml/hr, Infuse over: 1 hr, Route: IV, Total Volume: 1,000, Bolus Dose, Priority: STAT, Start date: 08/19/11 23:10:00, Duration: 1 doses or times, Stop date: 08/20/11 0:09:00 ondansetron 2011-0 No Hughes-Jason 4 mg, M emoria 3- [place] Route: PO, l 05:10: Drug form: Her braden 00 Pu TABDIS, ONCE, Priority: STAT, Start date: 08/19/11 23:10:00, Stop date: 08/19/11 23:10:00 Lactated 2011-0 No Hughes-Jason 1,000 mL, Memoria Ringers 3- [place] Rate: l (Bolus) IV 05:10: [place] 1,000 He rmann 1000 mL 00 Pu ml/hr, Infuse over: 1 hr, Route: IV, Total Volume: 1,000, Bolus Dose, Priority: STAT, Start date: 08/19/11 23:10:00, Duration: 1 doses or times, Stop date: 08/20/11 0:09:00 Insulin 2011-0 No Hughes-Jason 7 unit, Mem oria regular 3- [place] 0.07 mL, l 04:15: Route: [place] 00 Pu SUB-Q, Drug form: SOLN, ONCE, Priority: STAT, Start date: 08/19/11 22:15:00, Stop date: 08/19/11 22:15:00 Insulin 2011-0 No Hughes-Jason 7 unit, Mem oria regular 3- [place] 0.07 mL, l 04:15: [place] Route: Vin 00 Pu SUB-Q, Drug form: SOLN, ONCE, Priority: STAT, Start date: 08/19/11 22:15:00, Stop date: 08/19/11 22:15:00 Insulin 2011-0 No Hughes-Jason 7 unit, Mem oria regular 3-01 [place] 0.07 mL, l 04:15: [place] Route: [place] Pu SUB-Q, Drug form: SOLN, ONCE, Priority: STAT, Start date: 08/19/11 22:15:00, Stop date: 08/19/11 22:15:00 Insulin 2011- No Ellen-Jason 7 unit, Mem oria regular 3- [place] 0.07 mL, l 04:15: [place] Route: [place] Pu SUB-Q, Drug form: SOLN, ONCE, Priority: STAT, Start date: 08/19/11 22:15:00, Stop date: 08/19/11 22:15:00 Insulin 2011- No Ellen-Jason 7 unit, Mem oria regular 3- [place] 0.07 mL, l 04:15: [place] Route: Vin [...] PO, l capsule 23:24: Rivero BID, 180 [place] 43 cap, Substituti on Allowed, CAP Geodon [...] 2-29 tab, PO, l tablet 23:23: Bedtime, [place] 58 15 tab, Substituti on Allowed, TAB trazodone 2012-0 No 300 mg, 1 Mem oria 300 mg oral 2-29 tab, PO, l tablet 23:23: Bedtime, [place] 58 15 tab, Substituti on Allowed, TAB trazodone 2012-0 No 300 mg, 1 Mem oria 300 mg oral 2-29 tab, PO, l tablet 23:23: Bedtime, [place] 58 15 tab, Substituti on Allowed, TAB trazodone 2011-0 No 300 mg, 1 Mem o[facility] 300 mg oral 2-29 tab, PO, l tablet 23:23: Bedtime, [place] 58 15 tab, Substituti on Allowed, TAB trazodone 2011-0 No 300 mg, 1 Mem o[facility] 300 mg oral 2-29 tab, PO, l tablet 23:23: Bedtime, Vin 58 15 tab, Substituti on Allowed, TAB Effexor XR 2011-0 Yes Yury 75 mg, 1 Mem[facility] 75 mg oral 2-29 [place] cap, PO, l capsule, 23:22: Rivero Daily, 30 [place] extended 24 cap, release Substituti on Allowed Effexor XR 2011-0 Yes Yury 75 mg, 1 Memoria 75 mg oral 2-29 [place] cap, PO, l capsule, 23:22: Rivero Daily, 30 [place] extended 24 cap, release Substituti on Allowed Effexor XR 2011-0 Yes Yury 75 mg, 1 Mem[facility] 75 mg oral 2-29 [place] cap, PO, l capsule, 23:22: Rivero Daily, 30 [place] extended 24 cap, release Substituti on Allowed Effexor XR 2011-0 Yes Yury 75 mg, 1 Memoria 75 mg oral 2-29 [place] cap, PO, l capsule, 23:22: Rivero Daily, 30 [place] extended 24 cap, release Substituti on Allowed [...] 2011-0 No William 40 mL, Me moria 2-29 [...] 2011-0 No William 40 mL, Me moria 2- [place] Route: PO, l 22:04: Pooja Drug Form: Nidia nn 00 SUSP, ONCE, STAT, Start date: 08/19/11 16:04:00, Stop date: 08/19/11 16:04:00 Protonix 2011-0 No William 40 mg, Mem[facility] ia - [place] Route: l 22:04: Pooja IVP, Drug Jake n 00 form: INJ, ONCE, Start date: 08/19/11 16:04:00, Stop date: 08/19/11 16:04:00 GI cocktail 2011-0 No William 40 mL, Me moria 2- [place] Route: PO, l 22:04: Pooja Drug Form: Nidia nn 00 SUSP, ONCE, STAT, Start date: 08/19/11 16:04:00, Stop date: 08/19/11 16:04:00 Protonix 2011-0 No William 40 mg, Memor ia - [place] Route: l 22:04: Pooja IVP, Drug Jake n 00 form: INJ, ONCE, Start date: 08/19/11 16:04:00, Stop date: 08/19/11 16:04:00 GI cocktail 2011-0 No William 40 mL, Me moria 2- [place] Route: PO, l 22:04: Pooja Drug Form: Nidia nn 00 SUSP, ONCE, STAT, Start date: 08/19/11 16:04:00, Stop date: 08/19/11 16:04:00 Protonix 2011-0 No William 40 mg, Memor ia 2- [place] Route: l 22:04: Pooja IVP, Drug Jake n 00 form: INJ, ONCE, Start date: 08/19/11 16:04:00, Stop date: 08/19/11 16:04:00 GI cocktail 2011-0 No William 40 mL, Me moria 2- [place] Route: PO, l 22:04: Pooja Drug [...] 2011-0 No William 8 mg, Mem oria -29 [place] Route: l 21:57: Pooja IVP, Drug [...] [place] Route: IV, l 21:57: Pooja ONCE, [place] 00 Start date: 08/19/11 15:57:00, Stop date: [...] [place] Route: IV, l 21:57: Pooja ONCE, [place] 00 Start date: 08/19/11 15:57:00, Stop date: [...] [place] Route: IV, l 21:57: Pooja ONCE, Vni 00 Start date: 08/19/11 15:57:00, Stop date: [...] No William 1,000 mL, Me moria Ring[place] 2- [place] Rate: l (Bolus) IV 21:12: Pooja 1,000 Herm naeem 1000 mL 00 ml/hr, Infuse over: 1 hr, Route: IV, Total Volume: 1,000, Bolus Dose, Priority: STAT, Start date: 08/19/11 15:12:00, Duration: 1 doses or times, Stop date: 08/19/11 16:11:00 Lactated 2011-0 No William 1,000 mL, Me moria Ring[place] 2- [place] Rate: l (Bolus) IV 21:12: Pooja 1,000 Herm naeem 1000 mL 00 ml/hr, Infuse over: 1 hr, Route: IV, Total Volume: 1,000, Bolus Dose, Priority: STAT, Start date: 02/29/12 15:12:00, Duration: 1 doses or times, Stop [...] hepatitis B vaccine 2018-04-07 Completed [facility] [place] 00:00:00 hepatitis B vaccine 2018-04-07 Completed [facility] [place] 00:00:00 hepatitis B vaccine 2018-04-07 Completed Mem[facility] [place] 00:00:00 hepatitis B vaccine 2018-04-07 Completed Mem[facility] Vin 00:00:00 hepatitis B vaccine 2018-04-07 Completed [facility] Vin 00:00:00 influenza virus 2018-03-29 Completed [facility] [place] vaccine, inactivated 00:00:00 influenza virus 2018-03-29 Completed [facility] Vin vaccine, inactivated 00:00:00 influenza virus 2018-03-29 Completed [facility] [place] vaccine, inactivated 00:00:00 influenza virus 2018-03-29 Completed [facility] [place] vaccine, inactivated 00:00:00 influenza virus 2018-03-29 Completed [facility] [place] vaccine, inactivated 00:00:00 hepatitis B vaccine 2017-11-26 Completed Mem[facility] [place] 00:00:00 hepatitis B vaccine 2017-11-26 Completed [facility] [place] 00:00:00 hepatitis B vaccine 2017-11-26 Completed [facility] [place] 00:00:00 hepatitis B vaccine 2017-11-26 Completed [facility] [place] 00:00:00 hepatitis B vaccine 2017-11-26 Completed [facility] Vin 00:00:00 influenza virus 2017-10-25 Completed [facility] [place] vaccine, inactivated 00:00:00 pneumococcal 2017-10-25 Completed [facility] Her braden 23-valent vaccine 00:00:00 influenza virus 2017-10-25 Completed [facility] [place] vaccine, inactivated 00:00:00 pneumococcal 2017-10-25 Completed [facility] Her braden 23-valent vaccine 00:00:00 influenza virus 2017-10-25 Completed [facility] [place] vaccine, inactivated 00:00:00 pneumococcal 2017-10-25 Completed [facility] Her braden 23-valent vaccine 00:00:00 influenza virus 2017-10-25 Completed [facility] [place] vaccine, inactivated 00:00:00 pneumococcal 2017-10-25 Completed [facility] Her braden 23-valent vaccine 00:00:00 influenza virus 2017-10-25 Completed [facility] Vin vaccine, inactivated 00:00:00 pneumococcal 2017-10-25 Completed [facility] 23-valent vaccine 00:00:00 Influenza Virus 2017-06-22 Completed [facility] 3+ 00:00:00 [facility] Influenza Virus 2017-06-22 Completed [facility] IM 3+ 00:00:00 [facility] Influenza Virus 2016-04-02 Completed [facility] IM 3+ 00:00:00 [facility] Influenza Virus 2016-04-02 Completed [facility] IM 3+ 00:00:00 [facility] Influenza Virus 2015-10-28 Completed [facility] IM 3+ 00:00:00 [facility] Influenza Virus 2015-10-28 Completed [facility] IM 3+ 00:00:00 [facility] Vital Signs Vital Name Observation Time Observation [...] 16:33:00 171 mm[Hg] [facility] Diastolic blood 2020-06-27 16:33:00 98 mm[Hg] [facility] Heart rate 2020-06-27 16:33:00 71 /min [facility] Respiratory rate 2020-06-27 16:29:00 19 /min [facility] Body height 2020-06-27 16:29:00 154.9 cm [facility] Body weight 2020-06-27 16:29:00 77.293 kg [facility] BMI 2020-06-27 16:29:00 32.20 kg/m2 [facility] Oxygen saturation in 2020-06-27 16:29:00 99 /min [facility] Arterial blood by [facility] Pulse oximetry Branch Systolic blood 2020-06-27 16:33:00 171 mm[Hg] [facility] Diastolic blood 2020-06-27 16:33:00 98 mm[Hg] [facility] Heart rate 2020-06-27 16:33:00 71 /min [facility] Respiratory rate 2020-06-27 16:29:00 19 /min [facility] Body height 2020-06-27 16:29:00 154.9 cm [facility] Body weight 2020-06-27 16:29:00 77.293 kg [facility] BMI 2020-06-27 16:29:00 32.20 kg/m2 [facility] Oxygen saturation in 2020-06-27 16:29:00 99 /min [facility] Arterial blood by [facility] tawnya Pulse oximetry Branch Height/Length 2021-07-08 11:50:13 154.9 cm Measured Weight Dosing 2021-07-08 11:50:13 85.00 kg Height/Length 2021-07-08 11:47:31 154.9 cm Measured Weight Dosing 2021-07-08 11:47:31 85.00 kg Height/Length 2021-07-08 11:47:20 154.9 cm Measured Weight Dosing 2021-07-08 11:47:20 85.00 kg Systolic blood 2021-07-08 19:43:00 189 mm[Hg] [facility] pressure Diastolic blood 2021-07-08 19:43:00 104 mm[Hg] [facility] pressure Heart rate 2021-07-08 18:56:00 74 /min [facility] Body temperature 2021-07-08 18:56:00 36.39 Cathleen Meth [facility] Body height 2021-07-08 18:56:00 157.5 cm [facility] Body weight 2021-07-08 18:56:00 72.938 kg [facility] BMI 2021-07-08 18:56:00 29.41 kg/m2 [facility] Oxygen saturation in 2021-07-08 18:56:00 100 /min [facility] Arterial blood by Pulse oximetry Respiratory rate 2021-06-18 16:36:00 11 /min [facility] Systolic (mm Hg) 2021-01-29 20:03:00 Mendoza rial Vin Diastolic (mm Hg) 2021-01-29 20:03:00 Mem orial Vin Systolic (mm Hg) 2021-01-29 19:40:00 Mendoza rial [place] Diastolic (mm Hg) 2021-01-29 19:40:00 Mem orial Vin Systolic (mm Hg) 2021-01-29 18:05:00 Mendoza rial Vin Diastolic (mm Hg) 2021-01-29 18:05:00 Mem orial Vin Respitory Rate 2021-01-29 16:55:00 Memori al Vin Temperature Oral (F) 2021-01-29 16:45:00 97.3 F [facility] [place] Respitory Rate 2021-01-29 16:45:00 Mem[facility] al [place] Respitory Rate 2021-01-29 16:30:00 Mem[facility] al [place] Temperature Oral (F) 2021-01-29 13:10:00 97.6 F [facility] [place] Systolic (mm Hg) 2021-01-27 05:00:00 Mendoza rial [place] Diastolic (mm Hg) 2021-01-27 05:00:00 Mem orial [place] Systolic (mm Hg) 2021-01-27 04:00:00 Mendoza rial [place] Diastolic (mm Hg) 2021-01-27 04:00:00 Mem orial [place] Systolic (mm Hg) 2021-01-27 03:00:00 Mendoza rial Vin Diastolic (mm Hg) 2021-01-27 03:00:00 Mem orial Vin Respitory Rate 2021-01-26 19:00:00 Memori al Vin Respitory Rate 2021-01-26 18:00:00 Memori al Vin Respitory Rate 2021-01-26 17:00:00 Memori al [place] Temperature Oral (F) 2021-01-22 13:00:00 97.6 F [facility] Vin Height 2021-01-21 18:25:00 149.86 cm [facility] Vin Weight 2021-01-21 18:25:00 [facility] Vin BMI Calculated 2021-01-21 18:25:00 Memori al [place] Height 2021-01-21 17:09:00 157.48 cm [facility] [place] Height 2021-01-21 13:09:00 157.48 cm [facility] Vin Weight 2021-01-21 13:09:00 [facility] Vin BMI Calculated 2021-01-21 13:09:00 Memori al Vin Heart Rate 2021-01-21 12:50:00 [facility] Vin Systolic (mm Hg) 2020-12-24 15:43:00 Mendoza rial [place] Diastolic (mm Hg) 2020-12-24 15:43:00 Mem orial Vin Heart Rate 2020-12-24 15:43:00 [facility] [place] Height 2020-12-24 15:43:00 154.94 cm [facility] [place] Weight 2020-12-24 15:43:00 [facility] Vin BMI Calculated 2020-12-24 15:43:00 Memori al [place] Systolic (mm Hg) 2016-07-30 14:00:00 Mendoza rial [place] Diastolic (mm Hg) 2016-07-30 14:00:00 Mem orial [place] Respitory Rate 2016-07-30 14:00:00 Memori al [place] Heart Rate 2016-07-30 14:00:00 [facility] Vin Temperature Oral (F) 2016-07-30 14:00:00 97.4 F [facility] [place] Systolic (mm Hg) 2016-07-30 10:45:00 Mendoza rial Vin Diastolic (mm Hg) 2016-07-30 10:45:00 Mem orial [place] Heart Rate 2016-07-30 10:45:00 [facility] [place] Temperature Oral (F) 2016-07-30 10:45:00 97.2 F [facility] [place] Respitory Rate 2016-07-30 10:45:00 Memori al Vin Heart Rate 2016-07-30 06:35:00 [facility] Vin Temperature Oral (F) 2016-07-30 06:35:00 97.0 F [facility] [place] Respitory Rate 2016-07-30 06:35:00 Memori al Vin Systolic (mm Hg) 2016-07-30 06:35:00 Mendoza rial [place] Diastolic (mm Hg) 2016-07-30 06:35:00 Mem orial Vin Weight 2016-07-24 02:13:00 [facility] [place] BMI Calculated 2016-07-24 02:13:00 Memori al [place] Height 2016-07-24 02:13:00 160.02 cm [facility] Vin Respitory Rate 2016-06-15 15:00:00 Memori al Vin Systolic (mm Hg) 2016-06-15 15:00:00 Mendoza rial [place] Diastolic (mm Hg) 2016-06-15 15:00:00 Mem orial Vin Respitory Rate 2016-06-15 14:00:00 Memori al [place] Systolic (mm Hg) 2016-06-15 14:00:00 Mendoza rial Vin Diastolic (mm Hg) 2016-06-15 14:00:00 Mem orial [place] Respitory Rate 2016-06-15 13:29:00 Memori al Vin Systolic (mm Hg) 2016-06-15 13:29:00 Mendoza rial Vin Diastolic (mm Hg) 2016-06-15 13:29:00 Mem orial [place] Temperature Oral (F) 2016-06-14 10:56:00 97.1 F [facility] [place] Temperature Oral (F) 2016-06-14 06:55:00 97.1 F [facility] Vin Temperature Oral (F) 2016-06-12 10:00:00 96.8 F [facility] Vin Weight 2016-06-11 04:25:00 [facility] Height 2016-06-11 04:25:00 160.02 cm [facility] Vin BMI Calculated 2016-06-11 04:25:00 Memori al [place] Heart Rate 2016-06-11 02:04:00 [facility] [place] Heart Rate 2016-06-11 00:00:00 [facility] [place] Heart Rate 2016-06-10 20:30:00 [facility] Vin Weight 2016-06-10 16:04:00 [facility] Vin BMI Calculated 2016-06-10 16:04:00 Memori al Vin Height 2016-06-10 16:04:00 160.02 cm [facility] Vin Temperature Oral (F) 2014-06-26 15:12:00 98.0 F [facility] Systolic (mm Hg) 2014-06-26 15:12:00 Mendoza rial Vin Heart Rate 2014-06-26 15:12:00 [facility] [place] Diastolic (mm Hg) 2014-06-26 15:12:00 Mem orial [place] Respitory Rate 2014-06-26 15:12:00 Memori al Vin Systolic (mm Hg) 2014-06-26 13:53:00 Mendoza rial [place] Diastolic (mm Hg) 2014-06-26 13:53:00 Mem orial [place] Respitory Rate 2014-06-26 13:53:00 Memori al Vin Temperature Oral (F) 2014-06-26 13:53:00 98.0 F [facility] [place] Temperature Oral (F) 2014-06-26 12:37:00 98.2 F [facility] [place] Respitory Rate 2014-06-26 12:37:00 Memori al [place] Systolic (mm Hg) 2014-06-26 12:37:00 Mendoza rial Vin Diastolic (mm Hg) 2014-06-26 12:37:00 Mem orial [place] Heart Rate 2014-06-26 09:21:00 [facility] [place] Heart Rate 2014-06-26 06:08:00 [facility] [place] Height 2014-06-26 05:35:00 154.94 cm [facility] [place] Weight 2014-06-26 05:35:00 [facility] Vin BMI Calculated 2014-06-26 05:35:00 Memori al [place] Respitory Rate 2013-04-15 06:10:00 Memori al [place] Diastolic (mm Hg) 2013-04-15 06:10:00 Mem orial Vin Heart Rate 2013-04-15 06:10:00 [facility] [place] Systolic (mm Hg) 2013-04-15 06:10:00 Mendoza rial [place] Temperature Oral (F) 2013-04-15 06:10:00 98.7 F [facility] [place] Respitory Rate 2013-04-15 05:37:00 Memori al Vin Diastolic (mm Hg) 2013-04-15 05:37:00 Mem orial [place] Systolic (mm Hg) 2013-04-15 05:37:00 Mendoza rial Vin Temperature Oral (F) 2013-04-15 05:37:00 98.2 F [facility] [place] Heart Rate 2013-04-15 05:37:00 [facility] [place] Height 2013-04-15 02:06:00 160.02 cm [facility] [place] Weight 2013-04-15 02:06:00 [facility] [place] Temperature Oral (F) 2013-04-15 02:06:00 98.6 F [facility] [place] Respitory Rate 2013-04-15 02:06:00 Memori al Vin Heart Rate 2013-04-15 02:06:00 [facility] [place] Diastolic (mm Hg) 2013-04-15 02:06:00 Mem orial Vin Systolic (mm Hg) 2013-04-15 02:06:00 Mendoza rial [place] Weight 2012-03-14 21:33:00 [facility] Vin Systolic (mm Hg) 2011-12-01 00:33:00 Mendoza rial Vin Respitory Rate 2011-12-01 00:33:00 Memori al [place] Heart Rate 2011-12-01 00:33:00 [facility] [place] Diastolic (mm Hg) 2011-12-01 00:33:00 Mem orial [place] Temperature Oral (F) 2011-12-01 00:33:00 99.6 F [facility] [place] Diastolic (mm Hg) 2011-11-30 21:00:00 Mem orial [place] Heart Rate 2011-11-30 21:00:00 [facility] [place] Respitory Rate 2011-11-30 21:00:00 Memori al [place] Systolic (mm Hg) 2011-11-30 21:00:00 Mendoza rial Vin Temperature Oral (F) 2011-11-30 21:00:00 99.8 F [facility] [place] Respitory Rate 2011-11-30 16:30:00 Memori al Vin Systolic (mm Hg) 2011-11-30 16:30:00 Mendoza rial Vin Diastolic (mm Hg) 2011-11-30 16:30:00 Mem orial [place] Heart Rate 2011-11-30 16:30:00 [facility] [place] Temperature Oral (F) 2011-11-30 16:30:00 99.8 F [facility] [place] Weight 2011-11-29 11:40:00 [facility] [place] Height 2011-11-29 11:40:00 157.48 cm [facility] [place] Weight 2011-11-28 17:16:00 [facility] [place] Weight 2011-09-18 13:30:00 [facility] [place] Height 2011-09-18 13:30:00 154.94 cm [facility] [place] Heart Rate 2011-09-09 13:31:00 [facility] [place] Systolic (mm Hg) 2011-09-09 13:02:00 Mendoza rial [place] Diastolic (mm Hg) 2011-09-09 13:02:00 Mem orial Vin Respitory Rate 2011-09-09 13:02:00 Mem[facility] [place] Temperature Oral (F) 2011-09-09 13:02:00 97.5 F [facility] [place] Diastolic (mm Hg) 2011-09-09 08:00:00 Mem orial [place] Heart Rate 2011-09-09 08:00:00 [facility] Vin Temperature Oral (F) 2011-09-09 08:00:00 98.6 F [facility] [place] Respitory Rate 2011-09-09 08:00:00 Memori al [place] Systolic (mm Hg) 2011-09-09 08:00:00 Mendoza rial Vin Respitory Rate 2011-09-09 04:55:00 Memori al Vin Diastolic (mm Hg) 2011-09-09 04:55:00 Mem orial Vin Systolic (mm Hg) 2011-09-09 04:55:00 Mendoza rial Vin Heart Rate 2011-09-09 04:55:00 [facility] Vin Temperature Oral (F) 2011-09-09 00:55:00 98.7 F [facility] Vin Weight 2011-09-01 19:59:00 [facility] [place] Height 2011-09-01 19:59:00 154.94 cm [facility] Height 2011-09-01 07:01:00 154.94 cm [facility] Weight 2011-09-01 07:01:00 [facility] [place] Respitory Rate 2011-08-23 18:00:00 Memori al [place] Heart Rate 2011-08-23 18:00:00 [facility] [place] Systolic (mm Hg) 2011-08-23 18:00:00 Mendoza rial [place] Diastolic (mm Hg) 2011-08-23 18:00:00 Mem orial [place] Temperature Oral (F) 2011-08-23 18:00:00 97.7 F [facility] [place] Heart Rate 2011-08-23 14:24:00 [facility] Vin Temperature Oral (F) 2011-08-23 14:24:00 98.2 F [facility] Diastolic (mm Hg) 2011-08-23 14:24:00 Mem orial Vin Systolic (mm Hg) 2011-08-23 14:24:00 Mendoza rial Vin Respitory Rate 2011-08-23 14:24:00 Memori al Vin Systolic (mm Hg) 2011-08-23 11:15:00 Mendoza rial Vin Diastolic (mm Hg) 2011-08-23 11:15:00 Mem orial [place] Temperature Oral (F) 2011-08-23 11:00:00 98.3 F [facility] [place] Heart Rate 2011-08-23 11:00:00 [facility] [place] Respitory Rate 2011-08-22 22:00:00 Mem[facility] [place] Height 2011-08-20 09:12:00 154.94 cm [facility] [place] Weight 2011-08-20 09:12:00 [facility] [place] Height 2011-08-19 20:28:00 154.94 cm [facility] Weight 2011-08-19 20:28:00 [facility] Procedures Procedure Date / Time Performing Clinician Source Performed POC GLUCOSE 2021-06-18 17:00:00 Aurelio Schumacherist [facility] HEPATITIS B SURFACE 2021-06-18 14:07:00 Bill Cooper [facility] ANTIGEN VANCOMYCIN LEVEL, RANDOM 2021-06-18 13:44:00 Char Viramontes [facility] HC COMPLETE BLD COUNT 2021-06-18 13:44:00 Aurelio Schumacher [facility] W/AUTO DIFF BASIC METABOLIC PANEL 2021-06-18 11:27:00 Aurelio Schumacher [facility] ESTIMATED GFR 2021-06-18 11:27:00 Ullah, Aurelio [facility] POC GLUCOSE 2021-06-18 08:07:00 Endy Aurelio [facility] HEMODIALYSIS 2021-06-18 06:16:53 Bill Cooper [facility] POC GLUCOSE 2021-06-18 01:26:00 Endy [facility]lio [facility] POC GLUCOSE 2021-06-17 21:58:00 Endy Aurelio [facility] HEMODIALYSIS 2021-06-17 18:25:45 [facility] POC GLUCOSE 2021-06-17 17:36:00 Faiza [facility]pallavi [facility] POC GLUCOSE 2021-06-17 13:51:00 Faiza Schumacherpallavi [facility] BASIC METABOLIC PANEL 2021-06-17 11:16:00 [facility] HC COMPLETE BLD COUNT 2021-06-17 11:16:00 [facility] W/AUTO DIFF ESTIMATED GFR 2021-06-17 11:16:00 [facility] POC GLUCOSE 2021-06-17 02:50:00 [facility] CONSULT TO OSTOMY CARE 2021-06-17 00:31:48 [facility] NURSE HC COMPLETE BLD COUNT 2021-06-16 23:31:00 [facility] W/AUTO DIFF BASIC METABOLIC PANEL 2021-06-16 23:31:00 [facility] ESTIMATED GFR 2021-06-16 23:31:00 [facility] POC GLUCOSE 2021-06-16 23:19:00 [facility] OR [place] < 1 HOUR 2021-06-16 22:49:00 [facility] 2021-06-16 22:36[facility]00 [facility] Diaz-Hsi FUNGUS CULTURE 2021-06-16 22:36:00 Mando Diaz [facility] DiazHsi AEROBIC CULTURE 2021-06-16 22:36:00 Mando Diaz [facility]ilyn [facility] STAIN 2021-06-16 22:36:00 [facility] MO AN ELECTIVE 2021-06-16 21:30:00 Jocelyne Zepeda [facility] SUPRAGLOTTIC AIRWAY AORTOGRAPHY, POSSIBLE 2021-06-16 21:17:00 [facility]Y [facility] POC , URINE 2021-06-16 20:46:00 [facility] POTASSIUM LEVEL 2021-06-16 17:28:00 Isabell Dickerson [facility] Larry Romero POC GLUCOSE 2021-06-16 11:39:00 [facility] BASIC METABOLIC PANEL 2021-06-16 10:08:00 [facility] HC COMPLETE BLD COUNT 2021-06-16 10:08:00 [facility] W/AUTO DIFF PROTHROMBIN TIME WITH INR 2021-06-16 10:08:00 [facility] PARTIAL THROMBOPLASTIN 2021-06-16 10:08:00 [facility] TIME (PTT) TYPE AND SCREEN 2021-06-16 10:08:00 [facility] ESTIMATED GFR 2021-06-16 10:08:00 [facility] POC GLUCOSE 2021-06-16 01:59:00 [facility] POC GLUCOSE 2021-06-15 22:58:00 [facility] COVID-19 QUALITATIVE 2021-06-15 19:29:00 [facility] RT-PCR POC GLUCOSE 2021-06-15 17:42:00 [facility] HEMODIALYSIS 2021-06-15 16:17:54 Delfino Akbar [facility] POC GLUCOSE 2021-06-15 15:41:00 [facility] POC GLUCOSE 2021-06-15 13:44:00 [facility] POC GLUCOSE 2021-06-15 13:00:00 [facility] ECG 12-LEAD 2021-06-15 12:48:21 Leni Barker Ho spital HC COMPLETE BLD COUNT 2021-06-15 11:42:00 [facility] W/AUTO DIFF BASIC METABOLIC PANEL 2021-06-15 11:42:00 [facility] ESTIMATED GFR 2021-06-15 11:42:00 [facility] POC GLUCOSE 2021-06-15 01:31:00 [facility] US DUPLEX ARTERIAL LOWER 2021-06-14 21:55:33 [facility] EXTREMITY RIGHT POC GLUCOSE 2021-06-14 21:51:00 [facility] POC GLUCOSE 2021-06-14 17:36:00 [facility] POC GLUCOSE 2021-06-14 13:30:00 [facility] POC GLUCOSE 2021-06-14 13:29:00 [facility] HC COMPLETE BLD COUNT 2021-06-14 10:13:00 [facility] W/AUTO DIFF BASIC METABOLIC PANEL 2021-06-14 10:13:00 [facility] ESTIMATED GFR 2021-06-14 10:13:00 [facility] POC GLUCOSE 2021-06-14 02:45:00 [facility] POC GLUCOSE 2021-06-13 21:47:00 [facility] POC GLUCOSE 2021-06-13 20:46:00 [facility] CBC WITH PLATELET AND 2021-06-13 16:10:00 Delfino Akbar [facility] DIFFERENTIAL COMPREHENSIVE METABOLIC 2021-06-13 16:10:00 [facility] PANEL ESTIMATED GFR 2021-06-13 16:10:00 [facility] HEMODIALYSIS 2021-06-13 15:26:35 [facility] POC GLUCOSE 2021-06-13 14:30:00 [facility] VANCOMYCIN LEVEL, RANDOM 2021-06-13 10:59:00 Juwan You [facility] POC GLUCOSE 2021-06-13 10:40:00 [facility] POC GLUCOSE 2021-06-13 02:28:00 [facility] POC GLUCOSE 2021-06-13 00:16:00 [facility] POC GLUCOSE 2021-06-12 23:31:00 [facility] POC GLUCOSE 2021-06-12 23:14:00 [facility] POC GLUCOSE 2021-06-12 18:19:00 [facility] POC GLUCOSE 2021-06-12 14:37:00 [facility] POC GLUCOSE 2021-06-12 14:01:00 [facility] POC GLUCOSE 2021-06-12 03:03:00 Holden Nagel spital Ramírez CT HEAD WO CONTRAST 2021-06-12 00:53:00 Robe [facility] Ramírez POC GLUCOSE 2021-06-11 18:08:00 Holden Nagel Ho spital Ramírez POC GLUCOSE 2021-06-11 13:39:00 Holden Nagel Ho spital Ramírez HEMODIALYSIS 2021-06-11 12:38:[facility] 2021-06-11 02:01:00 Holden Nagel Ho spital Ramírez POC GLUCOSE 2021-06-10 22:15:00 Holden Nagel Ho spital Ramírez POC GLUCOSE 2021-06-10 17:39:00 Holden Nagel Ho spital Ramírez POC GLUCOSE 2021-06-10 16:05:00 Holden Nagel spital Ramírez TISSUE CULTURE 2021-06-10 15:08:00 Juwan You spital GRAM STAIN 2021-06-10 15:08:00 Kenyatta, Juwan Whyte spital ANAEROBIC CULTURE 2021-06-10 15:04:00 [facility] FUNGUS CULTURE 2021-06-10 15:04:00 Kenyatta, Juwan Ferrara spital AEROBIC CULTURE 2021-06-10 15:04:00 Kenyatta, Juwan Whyte spital AF[employer] CULTURE 2021-06-10 15:04:00 Kenyatta, Juwan Whyte spital GRAM STAIN 2021-06-10 15:04:00 Kenyatta, Juwan Whyte spital [employer] STAIN 2021-06-10 15:04:00 Kenyatta, Juwan Ferrara spital MO AN ELECTIVE 2021-06-10 14:26:00 Sofi Roach spital SUPRAGLOTTIC AIRWAY Marquita INCISION AND DRAINAGE, 2021-06-10 14:26:00 [facility] LOWER EXTREMITY HC COMPLETE BLD COUNT 2021-06-10 10:20:00 , [facility] W/AUTO DIFF BASIC METABOLIC PANEL 2021-06-10 10:20:00 , [facility] PROTHROMBIN TIME WITH INR 2021-06-10 10:20:00 [facility] PARTIAL THROMBOPLASTIN 2021-06-10 10:20:00 [facility] TIME (PTT) TYPE AND SCREEN 2021-06-10 10:20:00 Holden Nagel spital Ramírez ESTIMATED GFR 2021-06-10 10:20:00 Juwan You spital POC GLUCOSE 2021-06-10 03:11:00 Holden Nagel spital Ramírez POC GLUCOSE 2021-06-10 01:30:00 Holden Nagel spital Ramírez POC GLUCOSE 2021-06-09 22:22:00 Holden Nagel spital Ramírez POC GLUCOSE 2021-06-09 13:55:00 Holden Nagel spital Ramírez HEMODIALYSIS 2021-06-09 13:20:01 [facility] VANCOMYCIN LEVEL, RANDOM 2021-06-09 11:46:00 [facility] POC GLUCOSE 2021-06-09 02:06:00 Holden Nagel spital Ramírez POC GLUCOSE 2021-06-08 22:23:00 Holden Nagel spital Ramírez POC GLUCOSE 2021-06-08 17:53:00 Holden Nagel spital Ramírez HC COMPLETE BLD COUNT 2021-06-08 16:06:00 [facility] W/AUTO DIFF POC GLUCOSE 2021-06-08 13:56:00 Holden Nagel spital Ramírez URINE CULTURE 2021-06-08 03:56:00 Holden Nagel spital Ramírez URINALYSIS SCREEN AND 2021-06-08 03:32:00 [facility] MICROSCOPY, WITH REFLEX TO CULTURE POC GLUCOSE 2021-06-08 01:15:00 Holden Nagel spital Ramírez POC GLUCOSE 2021-06-07 22:07:00 Holden Nagel spital Ramírez POC GLUCOSE 2021-06-07 18:01:00 Holden Nagel spital Ramírez BASIC METABOLIC PANEL 2021-06-07 14:15:00 [facility] ESTIMATED GFR 2021-06-07 14:15:00 Holden Nagel spital Ramírez POC GLUCOSE 2021-06-07 13:56:00 Holden Nagel spital Ramírez POC GLUCOSE 2021-06-07 02:54:00 Holden Nagel spital Ramírez CT LOWER EXTREMITY W 2021-06-07 01:22:59 [facility] CONTRAST RIGHT POC GLUCOSE 2021-06-06 23:50:00 Holden Nagel spital Ramírez POC GLUCOSE 2021-06-06 17:31:00 Holden Nagel spital Ramírez HEMODIALYSIS 2021-06-06 15:05:52 Delfino Akbar [facility] POC GLUCOSE 2021-06-06 14:03:00 Holden Nagel spital Ramírez HC COMPLETE BLD COUNT 2021-06-06 10:31:00 [facility] W/AUTO DIFF BASIC METABOLIC PANEL 2021-06-06 10:31:00 [facility] ESTIMATED GFR 2021-06-06 10:31:00 Holden Nagel spital Ramírez POC GLUCOSE 2021-06-06 10:14:00 Holden Nagel spital Ramírez POC GLUCOSE 2021-06-06 06:26:00 Holden Nagel spital Ramírez POC GLUCOSE 2021-06-06 02:41:00 Holden Nagel spital Ramírez POC GLUCOSE 2021-06-05 19:51:00 Holden Nagel spital Ramírez BASIC METABOLIC PANEL 2021-06-05 18:06:00 [facility] HC COMPLETE BLD COUNT 2021-06-05 18:06:00 [facility] W/AUTO DIFF ESTIMATED GFR 2021-06-05 18:06:00 Holden Nagel spital Ramírez POC GLUCOSE 2021-06-05 17:48:00 Holden Nagel marilyn Ramírez ANAEROBIC CULTURE 2021-06-05 17:10:00 Kenyatta [facility] ANAEROBIC CULTURE 2021-06-05 16:59:00 [facility] FUNGUS CULTURE 2021-06-05 16:59:00 Juawn You rajeshtal AEROBIC CULTURE 2021-06-05 16:59:00 Juwan You spital [employer] CULTURE 2021-06-05 16:59:00 Juwan You FUNGUS SMEAR 2021-06-05 16:59:00 Juwan You rajeshtal [employer] STAIN 2021-06-05 16:59:00 Juwan You spital MO AN ELECTIVE 2021-06-05 16:52:08 Chandler Silverman [facility] SUPRAGLOTTIC AIRWAY TISSUE CULTURE 2021-06-05 16:50:00 Juwan You GRAM STAIN 2021-06-05 16:50:00 Juwan You DEBRIDEMENT, LOWER 2021-06-05 16:16:00 [facility] EXTREMITY POC GLUCOSE 2021-06-05 13:32:00 Holden Nagel marilyn Ramírez TROPONIN T 2021-06-05 10:58:00 [facility] ospital ABO AND RH CONFIRMATION BY 2021-06-05 10:54:00 [facility] PROTOCOL Vipin BASIC METABOLIC PANEL 2021-06-05 10:53:00 [facility] HC COMPLETE BLD COUNT 2021-06-05 10:53:00 [facility] W/AUTO DIFF ESTIMATED GFR 2021-06-05 10:53:00 Sivan Stewart [facility] PROTHROMBIN TIME WITH INR 2021-06-05 10:52:00 [facility] PARTIAL THROMBOPLASTIN 2021-06-05 10:52:00 [facility] TIME (PTT) HCG QUALITATIVE, SERUM 2021-06-05 10:52:00 Myron Fernandes Agustin [facility] SCREEN POC GLUCOSE 2021-06-05 09:40:00 Rachel Brasher spigabe Vipin BLOOD CULTURE, AEROBIC & 2021-06-05 08:27:00 Rachel Brasher [facility] ANAEROBIC Vipin POC GLUCOSE 2021-06-05 07:42:00 Rachel Brasher spital Vipin POC GLUCOSE 2021-06-05 06:57:00 Rachel Brasher spital Vipin POC GLUCOSE 2021-06-05 06:10:00 Holden Nagel Ramírez BLOOD CULTURE, AEROBIC & 2021-06-05 04:31:00 Rachel Brasher [facility] ANAEROBIC Vipin POC GLUCOSE 2021-06-05 04:04:00 Rachel Brasher Ho spital Vipin POC GLUCOSE 2021-06-05 03:51:00 Rachel Brasher Ho spital Vipin TYPE AND SCREEN 2021-06-05 03:40:00 Rachel Brasher spital Vipin POC GLUCOSE 2021-06-05 03:05:00 Rachel Brasher Ho spital Vipin POC GLUCOSE 2021-06-05 02:23:00 Rachel Brasher Ho spital Vipin COVID-19 QUALITATIVE 2021-06-05 02:08:00 [facility] HC COMPLETE BLD COUNT 2021-06-05 01:24:00 [facility]/AUTO DIFF PROTHROMBIN TIME WITH INR 2021-06-05 01:24:00 [facility] PARTIAL THROMBOPLASTIN 2021-06-05 01:24:00 [facility] south[facility] TIME (PTT) COMPREHENSIVE METABOLIC 2021-06-05 01:24:00 [facility] PANEL CREATINE KINASE, TOTAL 2021-06-05 01:24:00 [facility] ([facility] B NATRIURETIC PEPTIDE 2021-06-05 01:24:00 [facility] TROPONIN T 2021-06-05 01:24:00 Char Viramontes [facility] ospital ESTIMATED GFR 2021-06-05 01:24:00 [facility] Center[facility] ECG ED PRELIMINARY 2021-06-05 00:31:28 [facility] Center[facility] INTERPRETATION ECG 12-LEAD 2021-06-05 00:19:17 Rachel Brasher Ho spital Vipin POC GLUCOSE 2021-05-25 18:04:00 Marilu Koch [facility] POC GLUCOSE 2021-05-25 14:00:00 Awe, [facility] CBC HEMOGRAM 2021-05-25 10:12:00 [facility], [facility] BASIC METABOLIC PANEL 2021-05-25 10:12:00 Awe, [facility] ESTIMATED GFR 2021-05-25 10:12:00 Awe, [facility] POC GLUCOSE 2021-05-25 02:49:00 Awe, [facility] POC GLUCOSE 2021-05-24 23:33:00 Awe, [facility] POC GLUCOSE 2021-05-24 17:56:00 Awe, [facility] POC GLUCOSE 2021-05-24 13:59:00 Awe, [facility] CBC HEMOGRAM 2021-05-24 10:12:00 Awe, [facility] BASIC METABOLIC PANEL 2021-05-24 10:12:00 Awe, [facility] ESTIMATED GFR 2021-05-24 10:12:00 Awe, [facility] POC GLUCOSE 2021-05-24 09:59:00 Awe, [facility] POC GLUCOSE 2021-05-24 02:26:00 Awe, [facility] POC GLUCOSE 2021-05-24 00:03:00 Awe, [facility] TRANSFUSE RED BLOOD CELLS 2021-05-23 22:30:00 [facility] TRANSFUSE RED BLOOD CELLS 2021-05-23 21:30:00 [facility] POC GLUCOSE 2021-05-23 19:03:00 Awe, [facility] TYPE AND SCREEN 2021-05-23 14:38:00 [facility] HC COMPLETE BLD COUNT 2021-05-23 14:38:00 [facility] W/AUTO DIFF PREPARE RBC 2021-05-23 14:38:00 [facility] PREPARE PLATELET PHERESIS 2021-05-23 14:38:00 Char Viramontes [facility] POC GLUCOSE 2021-05-23 14:35:00 [facility], [facility] 2021-05-23 13:42:30 Delfino Akbar [facility] CBC HEMOGRAM 2021-05-23 12:31:00 Awe, [facility] BASIC METABOLIC PANEL 2021-05-23 12:31:00 Awe, [facility] ESTIMATED GFR 2021-05-23 12:31:00 Awe, [facility] POC GLUCOSE 2021-05-23 11:22:00 Awe, [facility] POC GLUCOSE 2021-05-23 03:30:00 Awe, [facility] POC GLUCOSE 2021-05-22 23:20:00 Awe, [facility] POC GLUCOSE 2021-05-22 17:20:00 Awe, [facility] POC GLUCOSE 2021-05-22 13:27:00 Awe, [facility] BASIC METABOLIC PANEL 2021-05-22 12:31:00 Nikki Haynes [facility] Rahel MAGNESIUM LEVEL 2021-05-22 12:31:00 Nikki Haynes ospigabe Rahel CBC HEMOGRAM 2021-05-22 12:31:00 Nikki Haynes ospital Rahel ESTIMATED GFR 2021-05-22 12:31:00 Nikki Haynes ospital Rahel POC GLUCOSE 2021-05-22 10:54:00 Awe, [facility] POC GLUCOSE 2021-05-22 07:28:00 Awe, [facility] POC GLUCOSE 2021-05-22 01:11:00 Awe, [facility] HEPATITIS B SURFACE 2021-05-21 21:08:00 [facility] ANTIBODY HEMODIALYSIS 2021-05-21 20:57:40 [facility] POC GLUCOSE 2021-05-21 17:57:00 Awe [facility] POC GLUCOSE 2021-05-21 13:55:00 Awe, [facility] POC GLUCOSE 2021-05-21 10:41:00 Tom Barber spigabe ZZCOVID-19 ANTI-SPIKE IGG 2021-05-21 07:43:00 Clyde Olmstead [facility] ANTIBODY TITER Esa BASIC METABOLIC PANEL 2021-05-21 07:43:00 [facility] Rahel MAGNESIUM LEVEL 2021-05-21 07:43:00 Claudy Hayneselle [facility] ospigabe Mcginnis CBC HEMOGRAM 2021-05-21 07:43:00 [facility] Rahel ZZCOVID-19 SEROLOGY 2021-05-21 07:43:00 Clyde Olmstead [facility] PATIENT SURVEILLANCE Esa ESTIMATED GFR 2021-05-21 07:43:00 Andre Sofia LACTIC ACID LEVEL 2021-05-21 07:43:00 Leodan Stevenson [facility] POC GLUCOSE 2021-05-21 06:35:00 Tom Barber COMPLETE BLD COUNT 2021-05-21 02:49:00 [facility] W/AUTO DIFF BASIC METABOLIC PANEL 2021-05-21 02:49:00 [facility] LACTIC ACID LEVEL 2021-05-21 02:49:00 [facility] OSMOLALITY, SERUM 2021-05-21 02:49:00 [facility] BETA HYDROXYBUTYRATE 2021-05-21 02:49:00 [facility] PROCALCITONIN 2021-05-21 02:49:00 [facility] ESTIMATED GFR 2021-05-21 02:49:00 [facility] POC GLUCOSE 2021-05-21 02:34:00 Tom Barber Ho spital HC COMPLETE BLD COUNT 2021-05-21 00:28:00 [facility] W/AUTO DIFF POC GLUCOSE 2021-05-20 23:57:00 Tom Barber Ho spital BASIC METABOLIC PANEL 2021-05-20 23:20:00 [facility] LACTIC ACID LEVEL 2021-05-20 23:20:00 [facility] ESTIMATED GFR 2021-05-20 23:20:00 Andre Sofia Ho spital [place] VENOUS BLOOD GAS 2021-05-20 23:19:00 Andre Sofia H ospital [place] POC GLUCOSE 2021-05-20 23:16:00 Tom [...] RED BLOOD CELLS 2021-05-20 17:21:00 Andre Sofia [facility] [place] TRANSFUSE PLATELET 2021-05-20 15:52:00 [facility] BASIC METABOLIC PANEL 2021-05-20 15:25:00 Andre Sofia [facility] ESTIMATED GFR 2021-05-20 15:25:00 Andre Sofia Ho spital [place] POC GLUCOSE 2021-05-20 14:48:00 Tom Barber Ho spital HEMODIALYSIS 2021-05-20 11:31:20 [facility] POC GLUCOSE 2021-05-20 10:44:00 Tom Barber Ho spital HEPATITIS B SURFACE 2021-05-20 08:49:00 [facility] ANTIGEN HEPATITIS B SURFACE AB, 2021-05-20 08:49:00 [facility] QUANTITATIVE HC COMPLETE BLD COUNT 2021-05-20 08:25:00 [facility] W/AUTO DIFF BASIC METABOLIC PANEL 2021-05-20 08:25:00 [facility] MAGNESIUM LEVEL 2021-05-20 08:25:00 [facility] ospital PHOSPHORUS LEVEL 2021-05-20 08:25:00 [facility] PROTHROMBIN TIME WITH INR 2021-05-20 08:25:00 [facility] ESTIMATED GFR 2021-05-20 08:25:00 Juwan You spital HEMOGLOBIN A1C 2021-05-20 08:25:00 Nikki Haynes H ospital Rahel POC GLUCOSE 2021-05-20 06:34:00 Tom Barber spital ARTERIAL BLOOD GAS 2021-05-20 04:36:00 [facility] ECG 12-LEAD 2021-05-20 03:42:28 Graham [facility] Ho spital PROTHROMBIN TIME WITH INR 2021-05-20 02:54:00 [facility] HC COMPLETE BLD COUNT 2021-05-20 02:54:00 Graham [facility] W/AUTO DIFF BASIC METABOLIC PANEL 2021-05-20 02:54:00 [facility] 2021-05-20 02:54:00 Graham [facility] VENOUS BLOOD GAS 2021-05-20 02:54:00 Leodan Stevenson H ospital ESTIMATED GFR 2021-05-20 02:54:00 Leodan Stevenson spital POC GLUCOSE 2021-05-20 02:54:00 Tom Barber spital XR CHEST 1 VW PORTABLE 2021-05-20 02:51:13 Leodan Stevenson [facility] OR [place] < 1 HOUR 2021-05-20 01:30:15 Juwan You spital TRANSFUSE RED BLOOD CELLS 2021-05-20 00:59:00 Juwan You [facility] MO AN ELECTIVE 2021-05-20 00:53:01 Sukhjinder Medina spital SUPRAGLOTTIC AIRWAY [place] INCISION AND DRAINAGE, 2021-05-20 00:45:00 [facility] HEMATOMA HC COMPLETE BLD COUNT 2021-05-19 22:13:00 [facility] W/AUTO DIFF BASIC METABOLIC PANEL 2021-05-19 22:13:00 [facility] PROTHROMBIN TIME WITH INR 2021-05-19 22:13:00 [facility] PARTIAL THROMBOPLASTIN 2021-05-19 22:13:00 [facility] TIME (PTT) MAGNESIUM LEVEL 2021-05-19 22:13:00 [facility] ospital ESTIMATED GFR 2021-05-19 22:13:00 Juwan You spital POC GLUCOSE 2021-05-19 22:00:00 Errol Luther [facility] SURGICAL PATHOLOGY REQUEST 2021-05-19 21:47:00 Errol Luther [facility] POC GLUCOSE 2021-05-19 21:17:00 Juwan You spital ACTIVATED CLOTTING TIME 2021-05-19 19:12:00 Tom Barber [facility] MO AN ELECTIVE 2021-05-19 18:11:04 Sukhjinder Medina spital SUPRAGLOTTIC AIRWAY [place] LOWER EXTREMITY 2021-05-19 17:59:00 Juwan You spital ANGIOGRAM,POSSIBLE ANGIOPLASTY,POSSIBLE STENT XR CHEST 1 VW PORTABLE 2021-05-19 15:47:37 Juwan You [facility] ESTIMATED GFR 2021-05-19 14:34:00 Juwan You spital POC PANEL 2021-05-19 14:34:00 Juwan You spital TYPE AND SCREEN 2021-05-19 14:05:00 Isabell Dickerson marilyn Romero PREPARE RBC 2021-05-19 14:05:00 W[facility] H ospital PREPARE FRESH FROZEN 2021-05-19 14:05:00 [facility] PLASMA PREPARE PLATELET PHERESIS 2021-05-19 14:05:00 [facility] BASIC METABOLIC PANEL 2021-05-19 14:00:00 [facility]ero PROTHROMBIN TIME WITH INR 2021-05-19 14:00:[address] [facility] Larry Romero HC COMPLETE BLD COUNT 2021-05-19 14:00:00 [facility] W/AUTO DIFF Larry Romero ABO AND RH CONFIRMATION BY 2021-05-19 14:00:00 [facility] PROT[facility]OL ESTIMATED GFR 2021-05-19 14:00:00 Isabell Dickerson [facility] Larry Romero COVID-19 QUALITATIVE 2021-05-19 12:40:00 Juwan You [facility] RT-PCR MEDICAL RELEASE/CLEARANCE 2021-05-13 06:01:00 Doctor Unassigned, 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 Plan of Care Planned Activity Planned Date Details Comments Source Future Scheduled 2022-11-12 HEPATITIS B VACCINES [facility] Test 20:50:47 (1 of 3 - 3-dose series) [code = HEPATITIS B VACCINES (1 of 3 - 3-dose series)] Future Scheduled 2022-11-12 COVID-19 VACCINE (#1) [facility] Test 20:50:47 [code = COVID-19 VACCINE (#1)] Future Scheduled 2022-11-12 Pneumococcal Vaccine: [facility] Test 20:50:47 Pediatrics (0 to 5 Years) and At-Risk Patients (6 to 64 Years) (1 - PCV) [code = Pneumococcal Vaccine: Pediatrics (0 to 5 Years) and At-Risk Patients (6 to 64 Years) (1 - PCV)] Future Scheduled 2022-11-12 Hepatitis C screening [facility] Test 20:50:47 (procedure) [code = 927278725] Future Scheduled 2022-11-12 [facility]ening for [facility] Test 20:50:47 malignant neoplasm of cervix (procedure) [code = [id number]] Future Scheduled 2022-11-12 BREAST CANCER [facility] Test 20:50:47 SCREENING [code = BREAST CANCER SCREENING] Future Scheduled 2022-11-12 INFLUENZA VACCINE Method [facility] Test 20:50:47 [code = INFLUENZA VACCINE] Future Scheduled 2022-10-23 HEPATITIS B VACCINES [facility] Test 05:16:19 (1 of 3 - 3-dose series) [code = HEPATITIS B VACCINES (1 of 3 - 3-dose series)] Future Scheduled 2022-10-23 COVID-19 [facility]ACCINE (#[facility] Test 05:16:19 [code = COVID-19 VACCINE (#1)] Future Scheduled 2022-10-23 Pneumococcal Vaccine: [facility] Test 05:16:19 Pediatrics (0 to 5 Years) and At-Risk Patients (6 to 64 Years) (1 - PCV) [code = Pneumococcal Vaccine: Pediatrics (0 to 5 Years) and At-Risk Patients (6 to 64 Years) (1 - PCV)] Future Scheduled 2022-10-23 Hepatitis C screening [facility] Test 05:16:19 (procedure) [code = [id number]] Future Scheduled 2022-10-23 Screening for [facility] Test 05:16:19 malignant neoplasm of cervix (procedure) [code = [id number]] Future Scheduled 2022-10-23 BREAST CANCER [facility] Test 05:16:19 SCREENING [code = BREAST CANCER SCREENING] Future Scheduled 2022-10-23 INFLUENZA VACCINE Method [facility] Test 05:16:19 [code = INFLUENZA VACCINE] Future Scheduled 2022-06-11 HEPATITIS B VACCINES Met [facility] Test 02:09:30 (1 of 3 - 3-dose series) [code = HEPATITIS B VACCINES (1 of 3 - 3-dose series)] Future Scheduled 2022-06-11 COVID-19 VACCINE (#1) [facility] Test 02:09:30 [code = COVID-19 VACCINE (#1)] Future Scheduled 2022-06-11 Pneumococcal Vaccine: [facility] Test 02:09:30 Pediatrics (0 to 5 Years) and At-Risk Patients (6 to 64 Years) (1 - PCV) [code = Pneumococcal Vaccine: Pediatrics (0 to 5 Years) and At-Risk Patients (6 to 64 Years) (1 - PCV)] Future Scheduled 2022-06-11 Hepatitis C screening [facility] Test 02:09:30 (procedure) [code = [id number]] Future Scheduled 2022-06-11 [facility] Test 02:09:30 malignant neoplasm of cervix (procedure) [code = 875552468] Future Scheduled 2022-06-11 [facility] 02:09:30 [code = INFLUENZA VACCINE] Future Scheduled 2022-06-11 HEPATITIS B VACCINES Met [facility] Test 02:09:30 (1 of 3 - 3-dose series) [code = HEPATITIS B VACCINES (1 of 3 - 3-dose series)] Future Scheduled 2022-06-11 COVID-19 VACCINE (#1) [facility] Test 02:09:30 [code = COVID-19 VACCINE (#1)] Future Scheduled 2022-06-11 Pneumococcal Vaccine: [facility] Test 02:09:30 Pediatrics (0 to 5 Years) and At-Risk Patients (6 to 64 Years) (1 - PCV) [code = Pneumococcal Vaccine: Pediatrics (0 to 5 Years) and At-Risk Patients (6 to 64 Years) (1 - PCV)] Future Scheduled 2022-06-11 Hepatitis C screening [facility] Test 02:09:30 (procedure) [code = 679651198] Future Scheduled 2022-06-11 Screening for [facility] Test 02:09:30 malignant neoplasm of cervix (procedure) [code = 273346924] Future Scheduled 2022-06-11 INFLUENZA VACCINE Method [facility] Test 02:09:30 [code = INFLUENZA VACCINE] Future Scheduled 2022-06-11 HEPATITIS B VACCINES Met [facility] Test 02:09:30 (1 of 3 - 3-dose series) [code = HEPATITIS B VACCINES (1 of 3 - 3-dose series)] Future Scheduled 2022-06-11 COVID-19 VACCINE (#1) [facility] Test 02:09:30 [code = COVID-19 VACCINE (#1)] Future Scheduled 2022-06-11 Pneumococcal Vaccine: [facility] Test 02:09:30 Pediatrics (0 to 5 Years) and At-Risk Patients (6 to 64 Years) (1 - PCV) [code = Pneumococcal Vaccine: Pediatrics (0 to 5 Years) and At-Risk Patients (6 to 64 Years) (1 - PCV)] Future Scheduled 2022-06-11 Hepatitis C screening [facility] Test 02:09:30 (procedure) [code = 965015566] Future Scheduled 2022-06-11 Screening for [facility] Test 02:09:30 malignant neoplasm of cervix (procedure) [code = 828623973] Future Scheduled 2022-06-11 INFLUENZA VACCINE Method [facility] Test 02:09:30 [code = INFLUENZA VACCINE] Future Scheduled 2022-06-11 HEPATITIS B VACCINES Met [facility] Test 02:09:30 (1 of 3 - 3-dose series) [code = HEPATITIS B VACCINES (1 of 3 - 3-dose series)] Future Scheduled 2022-06-11 COVID-19 VACCINE (#1) [facility] Test 02:09:30 [code = COVID-19 VACCINE (#1)] Future Scheduled 2022-06-11 Pneumococcal Vaccine: [facility] Test 02:09:30 Pediatrics (0 to 5 Years) and At-Risk Patients (6 to 64 Years) (1 - PCV) [code = Pneumococcal Vaccine: Pediatrics (0 to 5 Years) and At-Risk Patients (6 to 64 Years) (1 - PCV)] Future Scheduled 2022-06-11 Hepatitis C screening [facility] Test 02:09:30 (procedure) [code = 249986386] Future Scheduled 2022-06-11 Screening for [facility] Test 02:09:30 malignant neoplasm of cervix (procedure) [code = 206825631] Future Scheduled 2022-06-11 INFLUENZA VACCINE Method [facility] Test 02:09:30 [code = INFLUENZA VACCINE] Future Scheduled 2022-06-11 HEPATITIS B VACCINES Met [facility] Test 02:09:30 (1 of 3 - 3-dose series) [code = HEPATITIS B VACCINES (1 of 3 - 3-dose series)] Future Scheduled 2022-06-11 COVID-19 VACCINE (#1) [facility] Test 02:09:30 [code = COVID-19 VACCINE (#1)] Future Scheduled 2022-06-11 Pneumococcal Vaccine: [facility] Test 02:09:30 Pediatrics (0 to 5 Years) and At-Risk Patients (6 to 64 Years) (1 - PCV) [code = Pneumococcal Vaccine: Pediatrics (0 to 5 Years) and At-Risk Patients (6 to 64 Years) (1 - PCV)] Future Scheduled 2022-06-11 Hepatitis C screening [facility] Test 02:09:30 (procedure) [code = 817104739] Future Scheduled 2022-06-11 Screening for [facility] Test 02:09:30 malignant neoplasm of cervix (procedure) [code = 123745215] Future Scheduled 2022-06-11 INFLUENZA VACCINE Method [facility] Test 02:09:30 [code = INFLUENZA VACCINE] Future Scheduled 2022-06-11 HEPATITIS B VACCINES Met [facility] Test 02:09:30 (1 of 3 - 3-dose series) [code = HEPATITIS B VACCINES (1 of 3 - 3-dose series)] Future Scheduled 2022-06-11 COVID-19 VACCINE (#1) [facility] Test 02:09:30 [code = COVID-19 VACCINE (#1)] Future Scheduled 2022-06-11 Pneumococcal Vaccine: [facility] Test 02:09:30 Pediatrics (0 to 5 Years) and At-Risk Patients (6 to 64 Years) (1 - PCV) [code = Pneumococcal Vaccine: Pediatrics (0 to 5 Years) and At-Risk Patients (6 to 64 Years) (1 - PCV)] Future Scheduled 2022-06-11 Hepatitis C screening [facility] Test 02:09:30 (procedure) [code = 876583226] Future Scheduled 2022-06-11 Screening for [facility] Test 02:09:30 malignant neoplasm of cervix (procedure) [code = 372160742] Future Scheduled 2022-06-11 INFLUENZA VACCINE Method [facility] Test 02:09:30 [code = INFLUENZA VACCINE] Future Scheduled 2022-06-11 HEPATITIS B VACCINES Met [facility] Test 02:09:30 (1 of 3 - 3-dose series) [code = HEPATITIS B VACCINES (1 of 3 - 3-dose series)] Future Scheduled 2022-06-11 COVID-19 VACCINE (#1) [facility] Test 02:09:30 [code = COVID-19 VACCINE (#1)] Future Scheduled 2022-06-11 Pneumococcal Vaccine: [facility] Test 02:09:30 Pediatrics (0 to 5 Years) and At-Risk Patients (6 to 64 Years) (1 - PCV) [code = Pneumococcal Vaccine: Pediatrics (0 to 5 Years) and At-Risk Patients (6 to 64 Years) (1 - PCV)] Future Scheduled 2022-06-11 Hepatitis C screening [facility] Test 02:09:30 (procedure) [code = 783241732] Future Scheduled 2022-06-11 Screening for [facility] Test 02:09:30 malignant neoplasm of cervix (procedure) [code = 136703439] Future Scheduled 2022-06-11 INFLUENZA VACCINE Method [facility] Test 02:09:30 [code = INFLUENZA VACCINE] Future Scheduled 2022-06-01 HEPATITIS B VACCINES Met [facility] Test 16:17:59 (1 of 3 - 3-dose series) [code = HEPATITIS B VACCINES (1 of 3 - 3-dose series)] Future Scheduled 2022-06-01 COVID-19 VACCINE (#1) [facility] Test 16:17:59 [code = COVID-19 VACCINE (#1)] Future Scheduled 2022-06-01 Pneumococcal Vaccine: [facility] Test 16:17:59 Pediatrics (0 to 5 Years) and At-Risk Patients (6 to 64 Years) (1 - PCV) [code = Pneumococcal Vaccine: Pediatrics (0 to 5 Years) and At-Risk Patients (6 to 64 Years) (1 - PCV)] Future Scheduled 2022-06-01 Hepatitis C screening [facility] Test 16:17:59 (procedure) [code = 007280920] Future Scheduled 2022-06-01 Screening for [facility] Test 16:17:59 malignant neoplasm of cervix (procedure) [code = 494025168] Future Scheduled 2022-06-01 INFLUENZA VACCINE Method [facility] Test 16:17:59 [code = INFLUENZA VACCINE] Future Scheduled 2022-04-25 HEPATITIS B VACCINES Met [facility] Test 12:43:16 (1 of 3 - 3-dose series) [code = HEPATITIS B VACCINES (1 of 3 - 3-dose series)] Future Scheduled 2022-04-25 COVID-19 VACCINE (#1) [facility] Test 12:43:16 [code = COVID-19 VACCINE (#1)] Future Scheduled 2022-04-25 Pneumococcal Vaccine: [facility] Test 12:43:16 Pediatrics (0 to 5 Years) and At-Risk Patients (6 to 64 Years) (1 - PCV) [code = Pneumococcal Vaccine: Pediatrics (0 to 5 Years) and At-Risk Patients (6 to 64 Years) (1 - PCV)] Future Scheduled 2022-04-25 Hepatitis C screening [facility] Test 12:43:16 (procedure) [code = 170039260] Future Scheduled 2022-04-25 Screening for [facility] Test 12:43:16 malignant neoplasm of cervix (procedure) [code = 733450595] Future Scheduled 2022-04-25 INFLUENZA VACCINE Method [facility] Test 12:43:16 [code = INFLUENZA VACCINE] Future Scheduled 2022-02-27 HEPATITIS B VACCINES Met [facility] Test 05:24:42 (1 of 3 - 3-dose series) [code = HEPATITIS B VACCINES (1 of 3 - 3-dose series)] Future Scheduled 2022-02-27 COVID-19 VACCINE (#1) [facility] Test 05:24:42 [code = COVID-19 VACCINE (#1)] Future Scheduled 2022-02-27 Pneumococcal Vaccine: [facility] Test 05:24:42 Pediatrics (0 to 5 Years) and At-Risk Patients (6 to 64 Years) (1 - PCV) [code = Pneumococcal Vaccine: Pediatrics (0 to 5 Years) and At-Risk Patients (6 to 64 Years) (1 - PCV)] Future Scheduled 2022-02-27 Hepatitis C screening [facility] Test 05:24:42 (procedure) [code = 912517465] Future Scheduled 2022-02-27 Screening for [facility] Test 05:24:42 malignant neoplasm of cervix (procedure) [code = 827777514] Future Scheduled 2022-02-27 INFLUENZA VACCINE Method [facility] Test 05:24:42 [code = INFLUENZA VACCINE] Future Scheduled 2022-02-27 HEPATITIS B VACCINES Met [facility] Test 05:24:42 (1 of 3 - 3-dose series) [code = HEPATITIS B VACCINES (1 of 3 - 3-dose series)] Future Scheduled 2022-02-27 COVID-19 VACCINE (#1) [facility] Test 05:24:42 [code = COVID-19 VACCINE (#1)] Future Scheduled 2022-02-27 Pneumococcal Vaccine: [facility] Test 05:24:42 Pediatrics (0 to 5 Years) and At-Risk Patients (6 to 64 Years) (1 - PCV) [code = Pneumococcal Vaccine: Pediatrics (0 to 5 Years) and At-Risk Patients (6 to 64 Years) (1 - PCV)] Future Scheduled 2022-02-27 Hepatitis C screening [facility] Test 05:24:42 (procedure) [code = 118210176] Future Scheduled 2022-02-27 Scre[facility] Test 05:24:42 malignant neoplasm of cervix (procedure) [code = 203350215] Future Scheduled 2022-02-27 INFLUENZA VACCINE Method [facility] Test 05:24:42 [code = INFLUENZA VACCINE] Future Scheduled 2022-02-27 HEPATITIS B VACCINES Met [facility] Test 05:24:42 (1 of 3 - 3-dose series) [code = HEPATITIS B VACCINES (1 of 3 - 3-dose series)] Future Scheduled 2022-02-27 COVID-19 VACCINE (#1) [facility] Test 05:24:42 [code = COVID-19 VACCINE (#1)] Future Scheduled 2022-02-27 Pneumococcal Vaccine: [facility] Test 05:24:42 Pediatrics (0 to 5 Years) and At-Risk Patients (6 to 64 Years) (1 - PCV) [code = Pneumococcal Vaccine: Pediatrics (0 to 5 Years) and At-Risk Patients (6 to 64 Years) (1 - PCV)] Future Scheduled 2022-02-27 Hepatitis C screening [facility] Test 05:24:42 (procedure) [code = 712985091] Future Scheduled 2022-02-27 Screening for [facility] Test 05:24:42 malignant neoplasm of cervix (procedure) [code = 148344029] Future Scheduled 2022-02-27 INFLUENZA VACCINE Method [facility] Test 05:24:42 [code = INFLUENZA VACCINE] Future Scheduled 2022-02-27 HEPATITIS B VACCINES Met [facility] Test 05:24:42 (1 of 3 - 3-dose series) [code = HEPATITIS B VACCINES (1 of 3 - 3-dose series)] Future Scheduled 2022-02-27 COVID-19 VACCINE (#1) [facility] Test 05:24:42 [code = COVID-19 VACCINE (#1)] Future Scheduled 2022-02-27 Pneumococcal Vaccine: [facility] Test 05:24:42 Pediatrics (0 to 5 Years) and At-Risk Patients (6 to 64 Years) (1 - PCV) [code = Pneumococcal Vaccine: Pediatrics (0 to 5 Years) and At-Risk Patients (6 to 64 Years) (1 - PCV)] Future Scheduled 2022-02-27 Hepatitis C screening [facility] Test 05:24:42 (procedure) [code = 983451611] Future Scheduled 2022-02-27 Screening for [facility] Test 05:24:42 malignant neoplasm of cervix (procedure) [code = 138336979] Future Scheduled 2022-02-27 INFLUENZA VACCINE Method [facility] Test 05:24:42 [code = INFLUENZA VACCINE] Future Scheduled 2022-02-27 HEPATITIS B VACCINES Met [facility] Test 05:24:42 (1 of 3 - 3-dose series) [code = HEPATITIS B VACCINES (1 of 3 - 3-dose series)] Future Scheduled 2022-02-27 COVID-19 VACCINE (#1) [facility] Test 05:24:42 [code = COVID-19 VACCINE (#1)] Future Scheduled 2022-02-27 Pneumococcal Vaccine: [facility] Test 05:24:42 Pediatrics (0 to 5 Years) and At-Risk Patients (6 to 64 Years) (1 - PCV) [code = Pneumococcal Vaccine: Pediatrics (0 to 5 Years) and At-Risk Patients (6 to 64 Years) (1 - PCV)] Future Scheduled 2022-02-27 Hepatitis C screening [facility] Test 05:24:42 (procedure) [code = 369281675] Future Scheduled 2022-02-27 Screening for [facility] Test 05:24:42 malignant neoplasm of cervix (procedure) [code = 883867544] Future Scheduled 2022-02-27 INFLUENZA VACCINE Method [facility] Test 05:24:42 [code = INFLUENZA VACCINE] Future Scheduled 2022-02-27 HEPATITIS B VACCINES Met [facility] Test 05:24:42 (1 of 3 - 3-dose series) [code = HEPATITIS B VACCINES (1 of 3 - 3-dose series)] Future Scheduled 2022-02-27 COVID-19 VACCINE (#1) [facility] Test 05:24:42 [code = COVID-19 VACCINE (#1)] Future Scheduled 2022-02-27 Pneumococcal Vaccine: [facility] Test 05:24:42 Pediatrics (0 to 5 Years) and At-Risk Patients (6 to 64 Years) (1 - PCV) [code = Pneumococcal Vaccine: Pediatrics (0 to 5 Years) and At-Risk Patients (6 to 64 Years) (1 - PCV)] Future Scheduled 2022-02-27 Hepatitis C screening [facility] Test 05:24:42 (procedure) [code = 256001509] Future Scheduled 2022-02-27 Screening for [facility] Test 05:24:42 malignant neoplasm of cervix (procedure) [code = 528964712] Future Scheduled 2022-02-27 INFLUENZA VACCINE Method [facility] Test 05:24:42 [code = INFLUENZA VACCINE] Future Scheduled 2022-02-27 HEPATITIS B VACCINES Met [facility] Test 05:24:42 (1 of 3 - 3-dose series) [code = HEPATITIS B VACCINES (1 of 3 - 3-dose series)] Future Scheduled 2022-02-27 [facility] 05:24:42 [code = COVID-19 VACCINE (#1)] Future Scheduled 2022-02-27 Pneumococcal Vaccine: [facility] Test 05:24:42 Pediatrics (0 to 5 Years) and At-Risk Patients (6 to 64 Years) (1 - PCV) [code = Pneumococcal Vaccine: Pediatrics (0 to 5 Years) and At-Risk Patients (6 to 64 Years) (1 - PCV)] Future Scheduled 2022-02-27 Hepatitis C screening [facility] Test 05:24:42 (procedure) [code = 688318455] Future Scheduled 2022-02-27 [facility] Test 05:24:42 malignant neoplasm of cervix (procedure) [code = 118012518] Future Scheduled 2022-02-27 INFLUENZA VACCINE Method [facility] Test 05:24:42 [code = INFLUENZA VACCINE] Future Scheduled 2022-02-27 HEPATITIS B VACCINES Met [facility] Test 05:24:42 (1 of 3 - 3-dose series) [code = HEPATITIS B VACCINES (1 of 3 - 3-dose series)] Future Scheduled 2022-02-27 [facility]ACC[facility] 05:24:42 [code = COVID-19 VACCINE (#1)] Future Scheduled 2022-02-27 Pneumococcal Vaccine: [facility] Test 05:24:42 Pediatrics (0 to 5 Years) and At-Risk Patients (6 to 64 Years) (1 - PCV) [code = Pneumococcal Vaccine: Pediatrics (0 to 5 Years) and At-Risk Patients (6 to 64 Years) (1 - PCV)] Future Scheduled 2022-02-27 Hepatitis C screening [facility] Test 05:24:42 (procedure) [code = 594187554] Future Scheduled 2022-02-27 [facility] Test 05:24:42 malignant neoplasm of cervix (procedure) [code = 243193074] Future Scheduled 2022-02-27 [facility]ACC[facility] 05:24:42 [code = INFLUENZA VACCINE] Future Scheduled 2021-07-22 COVID-19 VACCINE (1) [facility] Test 13:11:04 [code = COVID-19 VACCINE (1)] Future Scheduled 2021-07-22 Hepatitis C screening [facility] Test 13:11:04 (procedure) [code = 629357362] Future Scheduled 2021-07-22 [facility] Test 13:11:04 malignant neoplasm of cervix (procedure) [code = 963830867] Future Scheduled 2021-07-22 [facility]ZA [facility]ACCINE [facility] 13:11:04 [code = INFLUENZA VACCINE] Encounters Start End Encounter Admission Attending Care Care Encounter Source Date/Time Date/Time Type Type Clinicians Facility Department ID 2022-11-12 Preadmit nullFlavo [id number] Memoria 20:50:54 r [facility] 68 [facility] 2022-11-12 Outpatient nullFlavo [facility] [id number] Memoria 20:50:54 r [facility] 05 l [facility] 2022-11-12 Outpatient nullFlavo [facility] [id number] Memoria 20:50:54 r Medical 06 l [facility] 2022-08-[address] [facility] [id number] [place] 10:54:07 [id number] [facility] 2022-04-[address] [facility] [id number] [place] 09:02:27 [id number] [facility] 2022-04-[address] [facility] [id number] [place] 12:17:07 [id number] [facility] 2021-12-[address] [facility] [id number] [place] 11:56:31 [id number] [facility] 2021-12-[address] [facility] [id number] [place] 14:05:12 [id number] [facility] 2021-12-[address] [facility] [id number] [place] 12:11:07 [id number] [facility] 2021-12-[address] [facility] [id number] [place] 20:09:51 [id number] [facility] 2021-10-[address] [facility] [id number] [place] 17:04:22 [id number] [facility] 2021-07-22 Outpatient nullFlavo [facility] [id number] Memoria 00:10:30 r Medical 05 l [facility] 2021-07-22 Preadmit nullFlavo [id number] [facility] 00:10:30 [place] 68 l [place] 2021-07-22 Outpatient nullFlavo [facility] [id number] Memoria 00:10:30 r Medical 06 l [facility] 2021-04-22 Emergency [facility] [id number] Univers 02:13:03 [facility] 2021-04-18 Emergency [facility] [id number] Univers 22:32:23 [facility] 2021-04-17 Emergency [facility] [id number] Univers 17:46:08 [facility] 2022-10-24 2022-10-24 Outpatient Daniels_b [facility] DREWG [id number] [facility] 00:00:00 [facility] 2022-08-28 2022-08-28 Outpatient Daniels_b DMG DMG [id number] -2022 [facility]:00:00 00:00:00 [facility]10 [facility] 2022-08-28 2022-08-28 Outpatient Daniels_b DMG DMG [id number] -2022 [facility]:00:00 00:00:00 0315 [facility] 2022-04-09 2022-04-09 Outpatient Nodal_J DMG DMG [id number] [facility] 00:00:00 00:00:00 1020 [facility] 2022-01-02 2022-01-02 Outpatient Deshazo_T DMG DMG [id number] -2021 [facility] 03:37:00 03:37:00 0715 [facility] 2021-12-15 2021-12-15 Outpatient [facility] [id number] [place] 08:00:00 08:00:00 [facility] 2021-12-02 2021-12-02 Travel 1.2.840.1 [id number] Methodi 00:00:00 00:00:[address] 3.430.2.7 0.2.7.3.698 Ho spita .3.763003 084.8 l .8 2021-12-02 2021-12-02 Travel 1.2.840.1 1.2.447.800 [id number] [facility] 00:00:00 00:00:[address] 3.430.2.7 0.2.7.3.698 Ho spita .3.760753 084.8 l .8 2021-11-13 2021-11-13 Transcribe [place], 1.2.840.1 [id number] Methodi 00:00:00 00:00:00 Orders Jose Miguel G. 14096.1.[address] 3.430.2.7 Hospit a .3.474998 l .8 2021-11-13 2021-11-13 Transcribe [place], 1.2.840.1 [id number] Methodi 00:00:00 00:00:00 Orders Jose Miguel G. 12434.1.[address] 3.430.2.7 Hospit a .3.165689 l .8 2021-11-05 2021-11-05 Outpatient Deshazo_T DMG [facility] [id number] -2021 [facility] 12:00:00 12:00:00 0518 [facility] 2021-10-29 2021-10-29 Telephone Rosy, 1.2.840.1 [id number] [facility]i 00:00:00 00:00:[address] Mohamed 3.430.2.7 Hospit a .3.780255 l .8 2021-08-20 2021-08-20 Outpatient Deshazo_T DMG DMG [id number] -2021 [facility] 12:30:00 12:30:00 0302 [facility] 2021-07-08 2021-07-08 Office Seth, 1.2.840.1 [id number] Methodi 13:00:00 14:25:36 Visit Bessie 86540.1.[address] [place] 3.430.2.7 Hosp jo-ann .3.551268 l .8 2021-07-08 2021-07-08 Telephone Anthony, 1.2.840.1 [id number] [facility]i 00:00:00 00:00:[address] 3.430.2.7 Hospit a .3.666352 l .8 2021-07-08 2021-07-08 Travel 1.2.840.1 1.2.895.197 [id number] [facility]i 00:00:00 00:00:[address] 3.430.2.7 0.2.7.3.698 Ho spita .3.289869 084.8 l .8 2021-07-03 2021-07-03 CAV Melany 2.16.840. 2.16.840.1. CLAC [id number] [facility] 19:00:00 20:00:00 Vladimir 1.062446. 681386.4.6. 467 [facility] 4.6.94795 [id number] 2021-07-03 2021-07-03 Telephone Seth, 1.2.840.1 [id number] Methodi 00:00:00 00:00:[address] [place] 3.430.2.7 Hosp jo-ann .3.934811 l .8 2021-06-24 2021-06-24 [id number] 05:31:00 05:31:00 0104 [facility] 2021-06-23 2021-06-23 Telephone Anthony, 1.2.840.1 [id number] Methodi 00:00:00 00:00:[address] 3.430.2.7 Hospit a .3.605106 l .8 2021-06-04 2021-06-18 [facility] Sivan Stewart. 1.2.840.1 [id number] Methodi 18:20:00 18:13:00 Encounter Rachel Brasher 15851.1.[address] Holden Nagel 3.430.2.7 Hospita Shanda Shahid .3.278536 l Aurelio Schumacher .8 2021-06-16 2021-06-16 Anesthesia Yousif, 1.2.840.1 [id number] Methodi 23:59:59 23:59:59 Event Alesia Coelho 41612.1.[address] 3.430.2.7 Hospit a .3.056313 l .8 2021-06-16 2021-06-16 Surgery Diaz, 1.2.840.1 [id number] Methodi 13:30:00 17:45:[address] [facility] 3.430.2.7 Hosp jo-ann .3.191945 l .8 2021-06-16 2021-06-16 Anesthesia Jose Carlos, 1.2.840.1 [id number] 654 [id number] Methodi 15:19:00 17:19:00 Event Arsenioayo 43371.1.1 309 s t V. 3.430.2.7 Hospit a .3.127053 l .8 2021-06-10 2021-06-10 Surgery KenyattaJuwan 1.2.840.1 [id number] Methodi 08:00:00 10:30:[address] 3.430.2.7 Hospit a .3.808428 l .8 2021-06-10 2021-06-10 Anesthesia Doc, 1.2.840.1 [id number] 922 [id number] Methodi 08:26:00 09:40:00 Event Sofi 25170.1.[address] Marquita 3.430.2.7 Hosp jo-ann .3.677629 l .8 2021-06-09 2021-06-09 Prep for Robert, 1.2.840.1 [id number] 227 6841584 Methodi 00:00:00 00:00:00 Surgery Gayle 22903.1.[address] 3.430.2.7 Hospit a .3.776824 l .8 2021-06-09 2021-06-09 Prep for Robert, 1.2.840.1 [id number] 561 9439763 Methodi 00:00:00 00:00:00 Surgery Gayle 77938.1.[address] 3.430.2.7 Hospit a .3.994641 l .8 2021-06-05 2021-06-05 Anesthesia Frankie Chowdhurysherie 1.2.840.1 [id number] Methodi 10:16:00 11:41:00 Event RenoChandler olivares 83461.1.[address] 3.430.2.7 Hospit a .3.527445 l .8 2021-06-05 2021-06-05 Surgery Juwan You 1.2.840.1 [id number] 01585 15283 Methodi 09:30:00 11:05:[address] 3.430.2.7 Hospit a .3.536924 l .8 2021-06-03 2021-06-03 Prep for Anthony, 1.2.840.1 [id number] 63275 92758 Methodi 00:00:00 00:00:00 Surgery Forrest 99623.1.[address] 3.430.2.7 Hospit a .3.319933 l .8 2021-06-03 2021-06-03 Telephone Adelita, 1.2.840.1 [id number] 225 0378004 Methodi 00:00:00 00:00:00 Crysandria 83610.1.1 218 s t 3.430.2.7 Hospit a .3.713632 l .8 2021-05-28 2021-05-28 Outpatient Adams_R DMG DMG 49545-9 021 Devoted 05:00:00 05:00:00 1208 Medica l Group 2021-05-27 2021-05-27 Patient Tam, 1.2.840.1 [id number] Methodi 00:00:00 00:00:00 Outreach Maria M 95805.1.[address] 3.430.2.7 Hospit a .3.062750 l .8 2021-05-27 2021-05-27 Travel 1.2.840.1 1.2.846.548 1816 561698 Methodi 00:00:00 00:00:[address] 3.430.2.7 0.2.7.3.698 Ho spita .3.181538 084.8 l .8 2021-05-27 2021-05-27 Orders Ramana, 1.2.840.1 [id number] 2099 339695 Methodi 00:00:00 00:00:00 Only Anila 81400.1.[address] 3.430.2.7 Hospit a .3.705722 l .8 2021-05-26 2021-05-26 Outpatient Adams_R DMG DMG 52114-8 021 Devoted 03:30:00 03:30:00 1206 Medica l Group 2021-05-26 2021-05-26 Telephone Anthony, 1.2.840.1 [id number] 2099 [id number] Methodi 00:00:00 00:00:[address] 3.430.2.7 Hospit a .3.946395 l .8 2021-05-19 2021-05-25 [facility] Juwan You 1.2.840.1 [id number] 2099 922502 Methodi 06:00:00 15:59:00 Encounter Tom Barber 99748.1.[address] August, Marilu Arvin 3.430.2.7 Hospita .3.777296 l .8 2021-05-21 2021-05-21 Outpatient DMG DMG 94145-8 021 Devoted 03:30:00 03:30:00 1201 Medica l Group 2021-05-19 2021-05-19 Anesthesia Adam, 1.2.840.1 [id number] Methodi 18:45:00 20:31:00 Event Sukhjinder 89254.1.[address] Kendall 3.430.2.7 Hospit a .3.988226 l .8 2021-05-19 2021-05-19 Surgery Juwan You 1.2.840.1 [id number] 03138 Methodi 18:50:00 19:55:[address] 3.430.2.7 Hospit a .3.861104 l .8 2021-05-19 2021-05-19 Anesthesia Sukhjinder Medina 1.2.840.1 [id number] Methodi 12:00:00 15:14:00 Event Hanane Ledezma 18749.1.[address] 3.430.2.7 Hospit a .3.690767 l .8 2021-05-19 2021-05-19 Surgery Juwan You 1.2.840.1 [id number] 27 Methodi 12:05:00 14:45:[address] 3.430.2.7 Hospit a .3.890205 l .8 2021-05-19 2021-05-19 Travel 1.2.840.1 1.2.665.083 9807 549345 Methodi 00:00:00 00:00:[address] 3.430.2.7 0.2.7.3.698 Ho spita .3.950814 084.8 l .8 2021-05-14 2021-05-14 Telephone Suhahia, 1.2.840.1 [id number] Methodi 00:00:00 00:00:[address] 3.430.2.7 Hospit a .3.789159 l .8 2021-05-14 2021-05-14 Prep for Anthony, 1.2.840.1 [id number] 21001 48847 Methodi 00:00:00 00:00:00 Surgery Forrest 74929.1.[address] 3.430.2.7 Hospit a .3.211287 l .8 2021-05-13 2021-05-13 Orders Doctor JOANNA 1.2.840.114 [id number] Univers 00:00:00 00:00:00 Only Unassigned, BEKA 350.1.13.10 ity of [place] [facility] 4.2.7.2.686 Baljinder as [phone] [address] 2021-05-12 2021-05-12 Office Juwan You 1.2.840.1 [id number] Methodi 09:00:00 09:32:[address] 3.430.2.7 Hospit a .3.401445 l .8 2021-05-12 2021-05-12 Outpatient KENYATTAJUWAN [facility] [id number] Morgan 00:00:00 00:00:[address] 2021-05-12 2021-05-12 Telephone Anthony, 1.2.840.1 [id number] 2100 002290 Methodi 00:00:00 00:00:[address] 3.430.2.7 Hospit a .3.270418 l .8 2021-05-12 2021-05-12 Travel 1.2.840.1 1.2.390.447 3806 358052 Methodi 00:00:00 00:00:[address] 3.430.2.7 0.2.7.3.698 spita .3.837212 084.8 l .8 2021-05-08 2021-05-08 Orders Anthony, 1.2.840.1 [id number] Methodi 00:00:00 00:00:00 Only Forrest 08337.1.[address] 3.430.2.7 Hospit a .3.523753 l .8 2021-05-08 2021-05-08 Telephone Ramana 1.2.840.1 [id number] [id number] Methodi 00:00:00 00:00:[address] 3.430.2.7 Hospit a .3.776660 l .8 2021-05-05 2021-05-05 Office Juwan You 1.2.840.1 [id number] 50505 10070 Methodi 14:00:00 15:41:[address] 3.430.2.7 Hospit a .3.932358 l .8 2021-05-05 2021-05-05 Travel 1.2.840.1 1.2.104.037 0882 741058 Methodi 00:00:00 00:00:[address] 3.430.2.7 0.2.7.3.698 Ho spita .3.843263 084.8 l .8 2021-05-01 2021-05-01 Telephone Joe 1.2.840.1 [id number] 2100 693433 Methodi 00:00:00 00:00:[address] Diaz-Hsi 3.430.2.7 Hosp jo-ann .3.641962 l .8 2021-04-08 2021-04-08 Outpatient R CASEY [facility] [id number] Univers 09:00:00 09:00:00 MONA low of [facility] 2021-03-24 2021-03-24 Transition Misha Garcia 1.2.840.114 878 61084 Univers 00:00:00 00:00:00 of Care Missy Boltony 350.1.13.10 it [place] of [phone] [address] [place] 2021-03-19 2021-03-21 Hospital Jimena Easton 1.2.840.1 1007 192338 [id number] Univers 08:24:00 23:08:00 Encounter Eze Dias 20945.1.1 ity of [place] 3.104.2.7 [place] .3.912794 Medica l .8 Branch 2021-03-21 2021-03-21 [facility] 021 Devoted 08:01:00 08:01:00 1001 Medica l Group 2021-03-19 2021-03-19 Orders Doctor 1.2.840.0 [id number] Univers 00:00:00 00:00:00 Only Unassigned, 56912.1.1 ity of [place] 3.104.2.7 [place] .3.757454 Medica l .8 Branch 2021-03-19 2021-03-19 Travel 1.2.840.1 1.2.220.697 3956 4264 Univers 00:00:00 00:00:00 73841.1.1 350.1.13.10 ity of 3.104.2.7 4[place].3.698 [place] .3.619378 084.8 Medica l .8 Dinosaur 2021-01-21 2021-01-29 Inpatient [facility] 28103 [id number] Memoria 15:50:00 20:14:[address] 2021-01-21 2021-01-29 Inpatient [facility] 97227 96267 Memoria 15:50:00 20:14:[address] 2021-01-21 2021-01-29 Inpatient U [facility] 10:50:00 15:14:00 MONISHA 2021-01-21 2021-01-29 Outpatient [facility] 24002 59120 10:50:00 15:14:00 Monisha 2021-01-24 2021-01-24 Outpatient [facility] 23542-1 021 Devoted 08:00:00 08:00:00 0806 Medica l [facility] 2021-01-21 2021-01-21 Outpatient [facility] [id number] 64640 10:50:00 10:50:00 Monisha 2021-01-03 2021-01-03 Office DOMINIQUE Diane 1.2.840.114 [id number] [place] 07:44:43 09:30:54 Visit Alexandr ALTMAN 350.1.13.58 H [facility] MEDICAL 9.2.7.2.686 [facility] [id number] 1 2021-01-03 2021-01-03 Office DOMINIQUE Diane 1.2.840.114 [id number] 903 07:44:43 09:30:54 Visit Alexandr ALTMAN 350.1.13.58 MEDICAL 9.2.7.2.686 [facility] [id number] 1 2020-12-26 2020-12-26 [facility] [id number] Univers 10:30:00 [facility]30[facility] 2020-12-[facility] 2020-12-25 Outpatient nullFlavo [facility] 455 [id number] Memoria 15:32:00 04:59:00 r Disease 11 l [facility] 2020-12-24 2020-12-25 Outpatient nullFlavo Digestive 432 [id number] Memoria 15:32:00 04:59:00 r Disease 11 l [facility] 2020-12-24 2020-12-24 Outpatient WRIGHT, [facility] 10:32:00 23:59:00 AMES 2020-12-24 2020-12-24 Outpatient Wright, [facility] [id number] 10:32:00 23:59:00 Hui Madden 2020-11-12 2020-11-12 [facility] [id number] Univers 09:00:00 09:00:00 JOSE LUIS [facility] 2020-10-27 2020-10-27 [facility] 1.2.840.114 [id number] 98 00:00:00 00:00:00 (Out) Oz Lehman 350.1.13.10 [place] 4.2.7.2.686 Professio [phone] nal 059 [facility] 2020-10-27 2020-10-27 [facility] 1.2.840.114 [id number] 98 Univers 00:00:00 00:00:00 (Out) Oz Lehman 350.1.13.10 [facility] [place] [phone] Az dical nal 059 [facility] 2020-10-24 2020-10-24 Orders Doctor JOANNA 1.2.840.114 [id number] 42 00:00:00 00:00:00 Only Unassigned, BEKA 350.1.13.10 [place] [facility] 4.2.7.2.686 [id number] 009 2020-10-24 2020-10-24 Orders Doctor JOANNA 1.2.840.114 [id number] Univers 00:00:00 00:00:00 Only Unassigned, BEKA 350.1.13.10 ity of [place] [facility]OSPITAL 4.2.7.2.686 Baljinder as [phone] [facility] 009 Dinosaur 2020-09-24 2020-09-24 Refill Carlos [facility] 1.2.840.114 [id number] 00:00:00 00:00:00 Wentong [place] 350.1.13.10 [place] 4.2.7.2.686 Professio [phone] [facility] 220 [facility] 2020-09-24 2020-09-24 Refill [facility] 1.2.840.114 [id number] Univers 00:00:00 00:00:00 Jose Luis [place] 350.1.13.10 i [place] [phone] Az dical nal 220 [facility] 2020-09-09 2020-09-09 Patient Daniel COIMELDA 1.2.840.114 [id number] 00:00:00 00:00:00 Outreach Earl PRIMARY 350.1.13.10 Manuel CARE 4.2.7.2.686 PAVILLION [id number] 388 2020-09-09 2020-09-09 Patient Daniel [facility] 1.2.840.114 [id number] Univers 00:00:00 00:00:00 Outreach Earl PRIMARY 350.1.13.10 i ty of [place] [phone] Az dical 388 Dinosaur 2020-08-06 2020-08-06 Outpatient R CARLOS [facility] [id number] Univers 14:30:00 14:30:00 WENTONG ity of [facility] 2020-08-05 2020-08-05 [facility] [id number] Univers 13:30:00 13:30:00 DEJA ity of [facility] 2020-07-23 2020-07-23 [facility] 1.2.840.114 [id number] [facility] 13:39:08 23:59:00 Encounter Deja PRIMARY 350.1.13.10 ity of [place].2.[place] [id number] Az dical 807 Dinosaur 2020-07-23 2020-07-23 Office [facility] 1.2.472.669 [id number] 5976 13:31:20 14:37:36 Visit Deja PRIMARY 350.1.13.10 A CARE 4.2.7.2.686 PAVILLION [id number] [facility] 2020-07-23 2020-07-23 Office [facility] 1.2.568.209 9590 5976 [facility] 13:31:20 14:37:36 Visit Deaj PRIMARY 350.1.13.10 ity of [place].2.[place] [phone] Az dical 198 D[place] 2020-07-23 2020-07-23 [facility] [id number] [facility] 13:30:00 13:30:00 DEJA ity of [facility] 2020-07-09 2020-07-09 Outpatient R [facility] [id number] Univers 09:00:00 09:00:00 ity of [facility] 2020-07-03 2020-07-03 Peg Kimble [facility] 1.2.969.235 [id number] Univers 00:00:00 00:00:00 Oz Lehman 350.1.13.10 [place] of [place] [phone] Az [address] 2020-06-27 2020-06-27 Office [facility] 1.2.840.114 [id number] Univers 10:05:43 11:00:00 Visit Oz Lehman 350.1.13.10 [place] of [place] [phone] [facility] nal [address] [place] [address] 2020-06-27 2020-06-27 Office Lamin [facility] 1.2.840.114 [id number] Univers 10:05:43 11:00:00 Visit Oz LEHMAN 350.1.13.10 ity [facility] 4.2.7.2.[place] PROF[place] [phone] [address] 2020-06-27 2020-06-27 [facility] [id number] Univers 09:30:00 11:00:00 SENDIL ity [facility] 2020-06-27 2020-06-27 Outpatient R LAMIN [facility] [id number] Univers 09:30:00 09:30:00 SENDIL ity [facility] 2020-05-28 2020-05-28 Laboratory Pc, Adc Echo Room 1 - [facility] 1 .2.840.114 [id number] Univers 08:01:11 08:48:06 Only Oz Kimble 350.1.13. 10 [place] of [place] [phone] [address] 2020-05-28 2020-05-28 Outpatient R [facility] [id number] Univers 08:00:00 08:00:00 ity [facility] 2020-05-10 2020-05-10 Nurse Visit, Adc Nurse [facility] 1.2.840.1 14 [id number] Univers 08:31:07 08:43:46 Visit Oz Kimble 350.1.13. 10 [place] of [place] [phone] [address] 2020-05-10 2020-05-10 Out[facility] [id number] Univers 08:30:00 08:30:00 SENDIL ity of [facility] 2020-05-07 2020-05-07 Outpatient R [facility] [id number] Univers 08:00:00 08:00:00 ity of [facility] 2020-05-01 2020-05-01 Office [facility] 1.2.840.114 [id number] Univers 11:02:55 12:04:48 Visit Jose Luis Lehman 350.1.13.10 i ty [place] [phone] Me dical nal 220 [facility] 2020-05-01 2020-05-01 Outpatient R CARLOS [facility] [id number] Univers 10:30:00 10:30:[facility] 2020-04-25 2020-04-25 Office [facility] 1.2.840.114 [id number] Univers 10:07:58 10:48:50 Visit Sendbhavana Lehman 350.1.13.10 ity [facility] 4.2.7.2.[place] [phone] Az dical nal 059 [facility] 2020-04-25 2020-04-25 Outpatient [facility] [id number] Univers 10:00:00 10:00:00 SENDIL ity [facility] 2020-04-25 2020-04-25 Orders Doctor MARSHALL 1.2.840.114 [id number] Univers 00:00:00 00:00:00 Only Unassigned, BEKA 350.1.13.10 ity of [place] [facility] 4.2.7.2.686 Baljinder as [phone] [address] 2020-04-05 2020-04-05 Outpatient [facility] [id number] Univers 09:30:00 09:30:00 SENDIL ity [facility] 2020-04-03 2020-04-03 Marine Fireman 2, Adc Lab [facility] 1.2.840.114 [id number] Univers 13:13:38 13:28:38 Visit Mona Bhat 350.1.13.10 it[place] of [place] [phone] Az dical nal 353 [facility] 2020-04-03 2020-04-03 Outpatient R ADUM, [facility] [id number] Univers 13:00:00 13:00:00 MONA caron [facility] 2020-04-02 2020-04-02 Office [facility] 1.2.840.114 [id number] Univers 09:00:33 09:54:22 Visit Mona Lehman 350.1.13.10 it[place] of [place].2.[place] [phone] Az dical nal 134 [facility] 2020-04-02 2020-04-02 Outpatient R AD, [facility] [id number] Univers 08:30:00 08:30:00 [facility] 2020-04-02 2020-04-02 Outpatient R AD, [facility] [id number] Univers 08:30:00 08:30:00 [facility] 2020-04-02 2020-04-02 Emergency [facility] 1.2.840.114 [id number] Univers 00:24:00 01:09:00 Marlin Lehman 350.1.13.10 i ty [place] [phone] [facility] 084 Dinosaur 2020-04-02 2020-04-02 Orders Doctor JOANNA 1.2.840.114 [id number] Univers 00:00:00 00:00:00 Only Unassigned, BEKA 350.1.13.10 ity of [place] [facility] 4.2.7.2.686 Baljinder as [phone] [facility] 009 Dinosaur 2020-03-16 2020-03-16 Telephone [facility]NEW [facility] 1.2.840.114 [id number] Univers 00:00:00 00:00:00 Yury Lehman 350.1.13.10 i ty [place] [phone] Az dical nal 134 [facility] 2020-03-08 2020-03-08 Outpatient R DIGNA [facility] [id number] Univers 11:00:00 11:00:00 LIMA terry f [facility] 2020-03-07 2020-03-07 Telephone Digna [facility] .2.840.114 [id number] Univers 00:00:00 00:00:00 [place] [facility] 350.1.13.10 ity [place] [phone] Az dical nal 188 [facility] 2020-02-06 2020-02-06 Outpatient R DORA [facility] [id number] Univers 09:30:00 09:30:00 BRANDON [facility] 2020-02-06 2020-02-06 Office [facility] .2.840.114 [id number] Univers 08:57:01 09:24:05 Visit Brandon Lehman 350.1.13.10 i ty of [place] [phone] Az dical nal 044 [facility] 2020-01-25 2020-01-31 Inpatient 1 Rei Waldorn [facility] GPY [id number] 21:31:00 18:15:00 Rei Waldron [facility] 2020-01-24 2020-01-24 Outpatient R DIDIER [facility] [id number] Univers 09:45:00 09:45:00 HUMAIR maranda [facility] 2020-01-23 2020-01-23 Outpatient R DIDIER [facility] [id number] Univers 10:30:00 10:30:00 RACHEL low [facility] 2019-12-18 2019-12-18 Outpatient R BARRERA [facility] [id number] Univers 08:00:00 08:00:00 YISSEL low [facility] 2019-12-04 2019-12-04 Outpatient R DORA [facility] [id number] Univers 14:15:00 14:15:00 BRANDON low [facility] 2019-11-06 2019-11-06 TelemedicMAGDY Ayala 1.2.840.114 [id number] Univers 07:49:37 08:46:52 ne Visit Yissel Parr 350.1.13.10 ity [facility] 4.2.7.2.686 [facility] [phone] [facility] BLDG. 136 [place] 2019-11-06 2019-11-06 Outpatient R BARRERA, [facility] [id number] Univers 08:00:00 08:00:00 YISSEL ity [facility] 2019-10-01 2019-10-01 Emergency [facility] 1.2.780.644 [id number] Univers 15:47:29 19:01:00 Stacie Lehman 350.1.13.10 i ty [facility] 4.2.7.2.686 [facility] [phone] [place] [address] Dinosaur 2019-09-05 2019-09-05 Outpatient Eduin JOHN [facility] [id number] Univers 13:30:00 13:30:00 BRANDON ity [facility] 2019-08-28 2019-08-28 Outpatient R ZEKE RUVALCABA [facility] [id number] Univers 15:00:00 15:00:00 ity [facility] 2019-02-27 2019-02-27 Telephone [facility] 1.2.840.114 [id number] Univers 00:00:00 00:00:00 Adán T SPECIALTY 350.1.13.10 ity of [facility] 4.2.7.2.686 [facility] CENTER AT [phone] Az jim MORALES 188 [facility] 2019-02-25 2019-02-25 Telephone [facility] 1.2.840.114 [id number] Univers 00:00:00 00:00:00 Adán T SPECIALTY 350.1.13.10 ity of CARE 4.2.7.2.686 [facility] AT [phone] Az dickatya MORALES 205 [facility] 2019-02-22 2019-02-22 [facility] Oz Kimble 1.2.8 40.114 [id number] Univers 09:19:22 23:59:00 Encounter Aimee Frederick 350.1.13.10 ity of Hospital 4.2.7.2.686 Baljinder as [phone] [facility] [address] 2019-02-22 2019-02-22 Hospital Oz Kimble 1.2.8 40.114 [id number] Univers 08:00:00 09:18:00 Encounter Outpt-Josy, Ccl Beka 350.1.13.10 ity of Hospital 4.2.7.2.686 Baljinder as [phone] [facility] 247 [place] 2019-02-17 2019-02-17 Office Alexarah [facility] 1.2.840.114 [id number] Univers 13:09:08 13:54:39 Visit Gary gray [facility] 350.1.13.10 ity [place] C[place] [phone] [facility] [address] 2019-02-17 2019-02-17 Orders Doctor JOANNA 1.2.840.114 [id number] Univers 00:00:00 00:00:00 Only Unassigned, BEKA 350.1.13.10 ity of [place] HOSPITAL 4.2.7.2.686 Baljinder as [phone] [facility] 009 [address] 2019-01-25 2019-01-25 Telephone Traci Kimble [id number] Univers 00:00:00 00:00:00 [place] 350.1.13.10 ity of Hospital 4.2.7.2.686 Baljinder as [phone] [place] [address] [address] 2019-01-25 2019-01-25 Telephone Traci Kimble [id number] [id number] Univers 00:00:00 00:00:00 Oz [place] 350.1.13.10 ity of Hospital 4.2.7.2.686 Baljinder as [phone] [place] [address] [address] 2019-01-20 2019-01-20 Office Lamin [facility] 1.2.840.114 [id number] Univers 08:55:54 09:56:43 Visit Oz Lehman 350.1.13.10 [place] [phone] [place] dical nal [address] [facility] 2019-01-14 2019-01-15 Emergency [place], TRAUMA 1.2.840.114 [id number] Univers 18:20:35 00:24:00 Brandon [facility] 350.1.13.10 [phone] [address] 2019-01-13 2019-01-13 Office [facility] 1.2.840.114 [id number] Univers 08:10:44 09:19:41 Visit Lima Lehman 350.1.13.10 [place] [phone] Az dical nal 205 [facility] 2018-05-24 2018-05-24 Outpatient SARAHY DORADO, SLEClaudia [facility] [id number] [facility] 00:00:00 00:00:00 LY 2016-07-24 2016-07-30 [facility] [id number] Memoria 02:04:00 16:20:[address] 2016-07-24 2016-07-30 Inpatient nullFlavo [facility] [id number] Memoria 02:04:00 16:20:[address] 2016-07-23 2016-07-30 Outpatient Yaquelin [facility] [id number] 20:04:00 10:20:00 Luna 10 2016-06-10 2016-06-15 [facility]patient [facility] [id number] Memoria 16:02:00 18:23:[address] 2016-06-10 2016-06-15 [facility]patient [facility]Flavo [facility] [id number] Memoria 16:02:00 18:23:[address] 2016-06-10 2016-06-15 Outpatient Franck [facility] [id number] 10:02:00 12:23:00 Joe Yuriy 09 2014-06-26 2014-06-26 EC nullFlavo [facility] [id number] Memoria 05:25:00 15:14:00 Emergency r [address] 2014-06-26 2014-06-26 EC [facility]Flavo [facility] [id number] Memoria 05:25:00 15:14:00 Emergency r [place] 08 [facility] 2014-06-25 2014-06-26 Outpatient Ostermalondra, 2.16.840. 2.16.840. 1. [id number] 23:25:00 09:14:00 Atul 1.384415. [id number] 08 Cem 3.615.0.1 5.0.165 78 6635-10-25 2013-04-15 [id number] [facility] 21:04:00 01:45:[address] 2013-04-14 2013-04-15 Outpatient 2.16.840. 2.16.840.1. 4 [id number] Memoria 21:04:00 01:45:00 1.521727. [id number] 07 l 3.615.0.1 5.0.[address] [facility] 2013-04-14 2013-04-15 Outpatient 2.16.840. 2.16.840.1. 4 [id number] Memoria 21:04:00 01:45:00 1.422530. 149662.3.61 07 l 3.615.0.1 5.0.[address] [facility] 2013-04-14 2013-04-15 Outpatient 2.16.840. 2.16.840.1. 4 [id number] Memoria 21:04:00 01:45:00 1.409552. 366731.3.61 07 l 3.615.0.1 5.0.101 Jake n [address] [facility] 2013-04-14 2013-04-15 Outpatient 2.16.840. 2.16.840.1. 4 [id number] Memoria 21:04:00 01:45:00 1.458951. 683527.3.61 07 l 3.615.0.1 5.0.[address] [facility] 2013-04-14 2013-04-15 Outpatient 2.16.840. 2.16.840.1. 4 [id number] Memoria 21:04:00 01:45:00 1.148134. [id number] Jake gonzalez [address] [facility] 2013-04-14 2013-04-15 Emergency nullFlavo [id number] Memoria 21:04:00 01:45:[address] 2012-03-14 2012-03-14 Emergency [place]Flavo [place] [id number] Memoria 16:32:00 22:39:[address] 2012-03-14 2012-03-14 Emergency nullFlavo MH [id number] Memoria 16:32:00 22:39:[address] 2011-11-28 2011-11-30 OU nullFlavo [facility] [id number] Memoria 12:16:00 20:40:00 r [facility] 03 [facility] 2011-11-28 2011-11-30 OU nullFlavo [facility] [id number] Memoria 12:16:00 20:40:00 r Medical 03 [facility] 2011-09-18 2011-09-18 Emergency nullFlavo [facility] [id number] Memoria 08:23:00 13:34:00 r Medical 02 [facility] 2011-09-18 2011-09-18 Emergency nullFlavo [place] [id number] Memoria 08:23:00 13:34:00 r Medical 02 [facility] 2011-09-01 2011-09-09 Inpatient nullFlavo [facility] [id number] Memoria 01:40:00 15:00:00 r Medical 01 [facility] 2011-09-01 2011-09-09 Inpatient nullFlavo [facility] [id number] Memoria 01:40:00 15:00:00 r Medical 01 [facility] 2011-08-19 2011-08-23 Inpatient nullFlavo [facility] [id number] Memoria 14:25:00 15:28:00 r Medical 00 [facility] 2011-08-19 2011-08-23 Inpatient nullFlavo [facility] [place] [id number] Memoria 14:25:00 15:28:00 r Medical 00 [facility] Results Test Description Test Time Test Comments Results Result Comments Source AFB culture 2021-07-22 18:13:19 Test Item Value Reference Range Interpretation Comme nts AFB culture isolate No growth after 6 weeks of Specimen InformationSpecimen (test code = 543-9) incubation. Source: DrainageSpecimen Site: Thigh: infected wound right thigh [facility]2022-02-01 18:13:19 Test Item Value Reference Range Interpretation Comments AFB culture No growth Specimen isolate (test after 6 weeks InformationSp ecimen code = 543-9) of Source: [place] geSpecimen incubation. Site: Thigh: in fected wound right [facility] [id number] 18:13:19 Test Item Value Reference Range Interpretation Comments AFB culture No growth Specimen isolate (test after 6 weeks InformationSp ecimen code = 543-9) of Source: [place] geSpecimen incubation. Site: Thigh: in fected wound right [facility]2022-02-01 18:13:19 Test Item Value Reference Range Interpretation Comments AFB culture No growth Specimen isolate (test after 6 weeks InformationSp ecimen code = 543-9) of Source: [place] geSpecimen incubation. Site: Thigh: in fected wound right [facility] [id number] 18:13:19 Test Item Value Reference Range Interpretation Comments AFB culture No growth Specimen isolate (test after 6 weeks InformationSp ecimen code = 543-9) of Source: [place] geSpecimen incubation. Site: Thigh: in fected wound right [facility] [id number] 18:13:19 Test Item Value Reference Range Interpretation Comments AFB culture No growth Specimen isolate (test after 6 weeks InformationSp ecimen code = 543-9) of Source: [place] geSpecimen incubation. Site: Thigh: in fected wound right [facility] [id number] 18:13:19 Test Item Value Reference Range Interpretation Comments AFB culture No growth Specimen isolate (test after 6 weeks InformationSp ecimen code = 543-9) of Source: [place] geSpecimen incubation. Site: Thigh: in fected wound right [facility] [id number] 18:13:19 Test Item Value Reference Range Interpretation Comments AFB culture No growth Specimen isolate (test after 6 weeks InformationSp ecimen code = 543-9) of Source: [place] geSpecimen incubation. Site: Thigh: in fected wound right [facility]2022-02-01 18:13:19 Test Item Value Reference Range Interpretation Comments AFB culture No growth Specimen isolate (test after 6 weeks InformationSp ecimen code = 543-9) of Source: [place] geSpecimen incubation. Site: Thigh: in fected wound right [facility] [id number] 18:13:19 Test Item Value Reference Range Interpretation Comments AFB culture No growth Specimen isolate (test after 6 weeks InformationSp ecimen code = 543-9) of Source: [place] geSpecimen incubation. Site: Thigh: in fected wound right [facility]2022-02-01 18:13:19 Test Item Value Reference Range Interpretation Comments AFB culture No growth Specimen isolate (test after 6 weeks InformationSp ecimen code = 543-9) of Source: [place] geSpecimen incubation. Site: Thigh: in fected wound right [facility]2022-01-25 18:15:13 Test Item Value Reference Range Interpretation Comments Fungus culture No growth Specimen isolate (test after 4 weeks InformationSp ecimen code = 1441) of Source: TissueS pecimen incubation. Site: Thigh [facility]2022-01-25 18:15:13 Test Item Value Reference Range Interpretation Comments Fungus culture No growth Specimen isolate (test after 4 weeks InformationSp ecimen code = 1441) of Source: TissueS pecimen incubation. Site: Thigh [facility]2022-01-25 18:15:13 Test Item Value Reference Range Interpretation Comments Fungus culture No growth Specimen isolate (test after 4 weeks InformationSp ecimen code = 1441) of Source: TissueS pecimen incubation. Site: Thigh [facility]2022-01-25 18:15:13 Test Item Value Reference Range Interpretation Comments Fungus culture No growth Specimen isolate (test after 4 weeks InformationSp ecimen code = 1441) of Source: TissueS pecimen incubation. Site: Thigh [facility]2022-01-25 18:15:13 Test Item Value Reference Range Interpretation Comments Fungus culture No growth Specimen isolate (test after 4 weeks InformationSp ecimen code = 1441) of Source: TissueS pecimen incubation. Site: Thigh [facility]2022-01-25 18:15:13 Test Item Value Reference Range Interpretation Comments Fungus culture No growth Specimen isolate (test after 4 weeks InformationSp ecimen code = 1441) of Source: TissueS pecimen incubation. Site: Thigh [facility]2022-01-25 18:15:13 Test Item Value Reference Range Interpretation Comments Fungus culture No growth Specimen isolate (test after 4 weeks InformationSp ecimen code = 1441) of Source: TissueS pecimen incubation. Site: Thigh [facility]2022-01-25 18:15:13 Test Item Value Reference Range Interpretation Comments Fungus culture No growth Specimen isolate (test after 4 weeks InformationSp ecimen code = 1441) of Source: TissueS pecimen incubation. Site: [facility]2022-01-25 18:15:13 Test Item Value Reference Range Interpretation Comments Fungus culture No growth Specimen isolate (test after 4 weeks InformationSp ecimen code = 1441) of Source: TissueS pecimen incubation. Site: [facility]2022-01-25 18:15:13 Test Item Value Reference Range Interpretation Comments Fungus culture No growth Specimen isolate (test after 4 weeks InformationSp ecimen code = 1441) of Source: TissueS pecimen incubation. Site: [facility]2022-01-25 18:15:13 Test Item Value Reference Range Interpretation Comments Fungus culture No growth Specimen isolate (test after 4 weeks InformationSp ecimen code = 1441) of Source: TissueS pecimen incubation. Site: Thigh [facility]2022-01-25 18:15:13 Test Item Value Reference Range Interpretation Comments Fungus culture No growth Specimen isolate (test after 4 weeks InformationSp ecimen code = 1441) of Source: TissueS pecimen incubation. Site: [facility]2022-01-25 18:15:13 Test Item Value Reference Range Interpretation Comments Fungus culture No growth Specimen isolate (test after 4 weeks InformationSp ecimen code = 1441) of Source: TissueS pecimen incubation. Site: Thigh [facility]2022-01-01 14:31:13 Test Item Value Reference Range Interpretation Comments Anaerobic No anaerobic Specimen culture isolate organisms InformationS pecimen (test code = isolated. Source: TissueS pecimen 552) Site: [place] 393812-01-01 14:31:13 Test Item Value Reference Range Interpretation Comments Anaerobic No anaerobic Specimen culture isolate organisms InformationS pecimen (test code = isolated. Source: TissueS pecimen 552) Site: [place] [address]-01-01 14:31:13 Test Item Value Reference Range Interpretation Comments Anaerobic No anaerobic Specimen culture isolate organisms InformationS pecimen (test code = isolated. Source: TissueS pecimen 552) Site: [address]01-01 14:31:13 Test Item Value Reference Range Interpretation Comments Anaerobic No anaerobic Specimen culture isolate organisms InformationS pecimen (test code = isolated. Source: TissueS pecimen 552) Site: [place] 393812-01-01 14:31:13 Test Item Value Reference Range Interpretation Comments Anaerobic No anaerobic Specimen culture isolate organisms InformationS pecimen (test code = isolated. Source: TissueS pecimen 552) Site: [place] 393812-01-01 14:31:13 Test Item Value Reference Range Interpretation Comments Anaerobic No anaerobic Specimen culture isolate organisms InformationS pecimen (test code = isolated. Source: TissueS pecimen 552) Site: [place] 393812-01-01 14:31:13 Test Item Value Reference Range Interpretation Comments Anaerobic No anaerobic Specimen culture isolate organisms InformationS pecimen (test code = isolated. Source: TissueS pecimen 552) Site: [place] [address]-01-01 14:31:13 Test Item Value Reference Range Interpretation Comments Anaerobic No anaerobic Specimen culture isolate organisms InformationS pecimen (test code = isolated. Source: TissueS pecimen 552) Site: [place] [address]-01-01 14:31:13 Test Item Value Reference Range Interpretation Comments Anaerobic No anaerobic Specimen culture isolate organisms InformationS pecimen (test code = isolated. Source: TissueS pecimen 552) Site: [place] 393812-01-01 14:31:13 Test Item Value Reference Range Interpretation Comments Anaerobic No anaerobic Specimen culture isolate organisms InformationS pecimen (test code = isolated. Source: TissueS [facility] 55) Site: [place] 393812-01-01 14:31:13 Test Item Value Reference Range Interpretation Comments Anaerobic No anaerobic Specimen culture isolate organisms InformationS pecimen (test code = isolated. [facility] Site: [place] 393812-01-01 14:31:13 Test Item Value Reference Range Interpretation Comments Anaerobic No anaerobic Specimen culture isolate organisms InformationS pecimen (test code = isolated. Source: [facility] 55) Site: [place] 393812-01-01 14:31:13 Test Item Value Reference Range Interpretation Comments Anaerobic No anaerobic Specimen culture isolate organisms InformationS pecimen (test code = isolated. Source: [place] [address]) Site: [facility] [id number] 16:51:58 Test Item Value Reference Range Interpretation Comments Gram stain No WBC's or Specimen isolate (test organisms seen. Information Specimen code = 1469) Source: [facility] [id number] 16:51:58 Test Item Value Reference Range Interpretation Comments Aerobic culture No growth Specimen isolate (test after 3 days. InformationSp ecimen code = 498) Source: [facility] Site: [facility] [id number] 16:51:58 Test Item Value Reference Range Interpretation Comments Fungus smear No fungi Specimen (test code = observed. InformationSpec imen Source: 1443) TissueSpecime Site: [facility] [id number] 16:51:58 Test Item Value Reference Range Interpretation Comments Gram stain No WBC's or Specimen isolate (test organisms seen. Information Specimen code = 1469) Source: [facility] [id number] 16:51:58 Test Item Value Reference Range Interpretation Comments Aerobic culture No growth Specimen isolate (test after 3 days. InformationSp ecimen code = 498) Source: TissueS pecime Site: [facility] [id number] 16:51:58 Test Item Value Reference Range Interpretation Comments Fungus smear No fungi Specimen (test code = observed. InformationSpec imen Source: 1443) TissueSpecimen Site: [facility]2021-12-31 16:51:58 Test Item Value Reference Range Interpretation Comments Gram stain No WBC's or Specimen isolate (test organisms seen. Information Specimen code = 1469) Source: [facility] [id number] 16:51:58 Test Item Value Reference Range Interpretation Comments Aerobic culture No growth Specimen isolate (test after 3 days. InformationSp ecimen code = 498) Source: [facility] Site: [facility] [id number] 16:51:58 Test Item Value Reference Range Interpretation Comments Fungus smear No fungi Specimen (test code = observed. InformationSpec imen [facility]: 1443) [facility]2021-12-31 16:51:58 Test Item Value Reference Range Interpretation Comments Gram stain No WBC's or Specimen isolate (test organisms seen. Information Specimen code = 1469) Source: [facility] Site: [facility] [id number] 16:51:58 Test Item Value Reference Range Interpretation Comments Aerobic culture No growth Specimen isolate (test after 3 days. InformationSp ecimen code = 498) Source: [facility] Site: [facility]2021-12-31 16:51:58 Test Item Value Reference Range Interpretation Comments Fungus smear No fungi Specimen (test code = observed. InformationSpec imen Source: 1443) TissueSpecime Site: [facility]2021-12-31 16:51:58 Test Item Value Reference Range Interpretation Comments Gram stain No WBC's or Specimen isolate (test organisms seen. Information Specimen code = 1469) Source: [facility] Site: [facility] [id number] 16:51:58 Test Item Value Reference Range Interpretation Comments Aerobic culture No growth Specimen isolate (test after 3 days. InformationSp ecimen code = 498) Source: [facility] [id number] 16:51:58 Test Item Value Reference Range Interpretation Comments Fungus smear No fungi Specimen (test code = observed. InformationSpec imen Source: 1443) TissueSpecime Site: Thigh [facility] [id number] 16:51:58 Test Item Value Reference Range Interpretation Comments Gram stain No WBC's or Specimen isolate (test organisms seen. Information Specimen code = 1469) Source: [facility] [id number] 16:51:58 Test Item Value Reference Range Interpretation Comments Aerobic culture No growth Specimen isolate (test after 3 days. InformationSp ecimen code = 498) Source: [facility] [id number] 16:51:58 Test Item Value Reference Range Interpretation Comments Fungus smear No fungi Specimen (test code = observed. InformationSpec imen Source: 1443) [facility]2021-12-31 16:51:58 Test Item Value Reference Range Interpretation Comments Gram stain No WBC's or Specimen isolate (test organisms seen. Information Specimen code = 1469) Source: [facility] Site: [facility] [id number] 16:51:58 Test Item Value Reference Range Interpretation Comments Aerobic culture No growth Specimen isolate (test after 3 days. InformationSp ecimen code = 498) Source: [facility] Site: [facility] [id number] 16:51:58 Test Item Value Reference Range Interpretation Comments Fungus smear No fungi Specimen (test code = observed. InformationSpec imen Source: 1443) [facility] [id number] 16:51:58 Test Item Value Reference Range Interpretation Comments Gram stain No WBC's or Specimen isolate (test organisms seen. Information Specimen code = 1469) Source: [facility] [id number] 16:51:58 Test Item Value Reference Range Interpretation Comments Aerobic culture No growth Specimen isolate (test after 3 days. InformationSp ecimen code = 498) Source: [facility] [id number] 16:51:58 Test Item Value Reference Range Interpretation Comments Fungus smear No fungi Specimen (test code = observed. InformationSpec imen Source: 1443) TissueSpecimen Site: Thigh [facility] [id number] 16:51:58 Test Item Value Reference Range Interpretation Comments Gram stain No WBC's or Specimen isolate (test organisms seen. Information Specimen code = 1469) Source: [facility] [id number] 16:51:58 Test Item Value Reference Range Interpretation Comments Aerobic culture No growth Specimen isolate (test after 3 days. InformationSp ecimen code = 498) Source: [facility] [id number] 16:51:58 Test Item Value Reference Range Interpretation Comments Fungus smear No fungi Specimen (test code = observed. InformationSpec imen Source: 1443) TissueSpecime Site: [facility] [id number] 16:51:58 Test Item Value Reference Range Interpretation Comments Gram stain No WBC's or Specimen isolate (test organisms seen. Information Specimen code = 1469) Source: [facility] Site: [facility] [id number] 16:51:58 Test Item Value Reference Range Interpretation Comments Aerobic culture No growth Specimen isolate (test after 3 days. InformationSp ecimen code = 498) Source: [facility] Site: [facility] [id number] 16:51:58 Test Item Value Reference Range Interpretation Comments Fungus smear No fungi Specimen (test code = observed. InformationSpec imen Source: 1443) [facility] [id number] 16:51:58 Test Item Value Reference Range Interpretation Comments Gram stain No WBC's or Specimen isolate (test organisms seen. Information Specimen code = 1469) Source: [facility] Site: [facility] [id number] 16:51:58 Test Item Value Reference Range Interpretation Comments Aerobic culture No growth Specimen isolate (test after 3 days. InformationSp ecimen code = 498) Source: [facility] Site: [facility] [id number] 16:51:58 Test Item Value Reference Range Interpretation Comments Fungus smear No fungi Specimen (test code = observed. InformationSpec imen Source: 1443) TissueSpecime Site: [facility] [id number] 16:51:58 Test Item Value Reference Range Interpretation Comments Gram stain No WBC's or Specimen isolate (test organisms seen. Information Specimen code = 1469) Source: TissueS pecimen [facility] [id number] 16:51:58 Test Item Value Reference Range Interpretation Comments Aerobic culture No growth Specimen isolate (test after 3 days. InformationSp ecimen code = 498) Source: TissueS pecime [facility]: [facility] [id number] 16:51:58 Test Item Value Reference Range Interpretation Comments Fungus smear No fungi Specimen (test code = observed. InformationSpec imen Source: 1443) TissueSpecimen Site: [facility] [id number] 16:51:58 Test Item Value Reference Range Interpretation Comments Gram stain No WBC's or Specimen isolate (test organisms seen. Information Specimen code = 1469) Source: [facility]: [facility] [id number] 16:51:58 Test Item Value Reference Range Interpretation Comments Aerobic culture No growth Specimen isolate (test after 3 days. InformationSp ecimen code = 498) Source: [facility] Site: [facility] [id number] 16:51:58 Test Item Value Reference Range Interpretation Comments Fungus smear No fungi Specimen (test code = observed. InformationSpec imen Source: 1443) TissueSpecimen Site: [facility]2021-12-29 17:00:57 Test Item Value Reference Range Interpretation Comments POC glucose (test code 79 mg/dL 65-99 Opera tor Name: Eboni = 06362-3) AmiDevice ID: [id number] [facility] [id number] 17:00:57 Test Item Value Reference Range Interpretation Comments POC glucose (test code 79 mg/dL 65-99 Opera tor Name: Eboni = 78553-4) AmiDevice ID: [id number] [facility]2021-12-29 17:00:57 Test Item Value Reference Range Interpretation Comments POC glucose (test code 79 mg/dL 65-99 Opera tor Name: E[place]i = 16155-8) AmiDevice ID: [id number] [facility]2021-12-29 17:00:57 Test Item Value Reference Range Interpretation Comments POC glucose (test code 79 mg/dL 65-99 Opera tor Name: Eboni = 05847-3) AmiDevice ID: [id number] [facility]2021-12-29 17:00:57 Test Item Value Reference Range Interpretation Comments POC glucose (test code 79 mg/dL 65-99 Opera tor Name: E[place]i = 04876-3) AmiDevice ID: [id number] [facility]2021-12-29 17:00:57 Test Item Value Reference Range Interpretation Comments POC glucose (test code 79 mg/dL 65-99 Opera tor Name: E[place]i = 34502-0) AmiDevice ID: [id number] [facility]2021-12-29 17:00:57 Test Item Value Reference Range Interpretation Comments POC glucose (test code 79 mg/dL 65-99 Opera tor Name: E[place]i = 52727-1) AmiDevice ID: [id number] [facility]2021-12-29 17:00:57 Test Item Value Reference Range Interpretation Comments POC glucose (test code 79 mg/dL 65-99 Opera tor Name: Eboni = 78741-0) AmiDevice ID: [id number] [facility]2021-12-29 17:00:57 Test Item Value Reference Range Interpretation Comments POC glucose (test code 79 mg/dL 65-99 Opera tor Name: [place]i = 12176-3) AmiDevice ID: [id number] [facility]2021-12-29 17:00:57 Test Item Value Reference Range Interpretation Comments POC glucose (test code 79 mg/dL 65-99 Opera tor Name: [place]i = 51520-8) AmiDevice ID: [id number] [facility]2021-12-29 17:00:57 Test Item Value Reference Range Interpretation Comments POC glucose (test code 79 mg/dL 65-99 Opera tor Name: [place]i = 41185-3) AmiDevice ID: [id number] [facility]2021-12-29 17:00:57 Test Item Value Reference Range Interpretation Comments POC glucose (test code 79 mg/dL 65-99 Opera tor Name: [place] = 01329-7) AmiDevice ID: [id number] [facility] [id number] 17:00:57 Test Item Value Reference Range Interpretation Comments POC glucose (test code 79 mg/dL 65-99 Opera tor Name: [place] = 81810-2) AmiDevice ID: [id number] [facility] , [id number] 20:46:00 Test Item Value Reference Range Interpretation Comments test urine, POC (test Negative code = 2438232) Internal QC (test code = 257) QC [facility] [id number] 20:46:00 Test Item Value Reference Range Interpretation Comments test urine, POC (test Negative code = 9851401) Internal QC (test code = 257) QC [facility] [id number] 20:46:00 Test Item Value Reference Range Interpretation Comments test urine, POC (test Negative code = 2380031) Internal QC (test code = 257) QC acceptable [facility] [id number] 20:46:00 Test Item Value Reference Range Interpretation Comments test urine, POC (test Negative code = 2530053) Internal QC (test code = 257) QC acceptable [facility] , duyda1823-18-19 20:46:00 Test Item Value Reference Range Interpretation Comments test urine, POC (test Negative code = 3156526) Internal QC (test code = 257) QC [facility] xkevv3893-32-47 20:46:00 Test Item Value Reference Range Interpretation Comments test urine, POC (test Negative code = 2020107) Internal QC (test code = 257) QC acceptable [facility] , cgqlt3470-83-02 20:46:00 Test Item Value Reference Range Interpretation Comments test urine, POC (test Negative code = 9787539) Internal QC (test code = 257) QC [facility] , ezjue3223-56-23 20:46:00 Test Item Value Reference Range Interpretation Comments test urine, POC (test Negative code = 6192519) Internal QC (test code = 257) QC [facility] , mtlur6375-62-52 20:46:00 Test Item Value Reference Range Interpretation Comments test urine, POC (test Negative code = 4603529) Internal QC (test code = 257) QC acceptable [facility] , [id number] 20:46:00 Test Item Value Reference Range Interpretation Comments test urine, POC (test Negative code = 2009688) Internal QC (test code = 257) QC acceptable [facility] , crias8136-65-25 20:46:00 Test Item Value Reference Range Interpretation Comments test urine, POC (test Negative code = 2050361) Internal QC (test code = 257) QC acceptable [facility] , lwzsv8133-04-51 20:46:00 Test Item Value Reference Range Interpretation Comments test urine, POC (test Negative code = 1741827) Internal QC (test code = 257) QC acceptable [facility] , [id number] 20:46:00 Test Item Value Reference Range Interpretation Comments test urine, POC (test Negative code = 7749050) Internal QC (test code = 257) QC acceptable [address]2021-12-27 17:27:33 Test Item Value Reference Range Interpretation Comments Ventricular rate (test code = 253) Atrial rate (test code = 255) MO interval (test code = 266) QRSD interval [...] 04-JUN-2021 18:19,-No significant change was found- [address]2021-12-27 17:27:33 Test Item Value Reference Range Interpretation Comments Ventricular rate (test code = 253) Atrial rate (test code = 255) MO interval (test code = 266) QRSD interval [...] 04-JUN-2021 18:19,-No significant change was found- [address]2021-12-27 17:27:33 Test Item Value Reference Range Interpretation Comments Ventricular rate (test code = 253) Atrial rate (test code = 255) MO interval (test code = 266) QRSD interval [...] 04-JUN-2021 18:19,-No significant change was found- [address]2021-12-27 17:27:33 Test Item Value Reference Range Interpretation Comments Ventricular rate (test code = 253) Atrial rate (test code = 255) MO interval (test code = 266) QRSD interval [...] 04-JUN-2021 18:19,-No significant change was found- [address]2021-12-27 17:27:33 Test Item Value Reference Range Interpretation Comments Ventricular rate (test code = 253) Atrial rate (test code = 255) MO interval (test code = 266) QRSD interval [...] 04-JUN-2021 18:19,-No significant change was found- [address]2021-12-27 17:27:33 Test Item Value Reference Range Interpretation Comments Ventricular rate (test code = 253) Atrial rate (test code = 255) MO interval (test code = 266) QRSD interval [...] 04-JUN-2021 18:19,-No significant change was found- [address]2021-12-27 17:27:33 Test Item Value Reference Range Interpretation Comments Ventricular rate (test code = 253) Atrial rate (test code = 255) MO interval (test code = 266) QRSD interval [...] 04-JUN-2021 18:19,-No significant change was found- [address]2021-12-27 17:27:33 Test Item Value Reference Range Interpretation Comments Ventricular rate (test code = 253) Atrial rate (test code = 255) MO interval (test code = 266) QRSD interval [...] 04-JUN-2021 18:19,-No significant change was found- [address]2021-12-27 17:27:33 Test Item Value Reference Range Interpretation Comments Ventricular rate (test code = 253) Atrial rate (test code = 255) MO interval (test code = 266) QRSD interval [...] 04-JUN-2021 18:19,-No significant change was found- [address]2021-12-27 17:27:33 Test Item Value Reference Range Interpretation Comments Ventricular rate (test code = 253) Atrial rate (test code = 255) MO interval (test code = 266) QRSD interval [...] 04-JUN-2021 18:19,-No significant change was found- [address]2021-12-27 17:27:33 Test Item Value Reference Range Interpretation Comments Ventricular rate (test code = 253) Atrial rate (test code = 255) MO interval (test code = 266) QRSD interval [...] of 04-JUN-2021 18:19,-No significant change was found- [place] [address] qmuh0225-37-80 17:27:33 Test Item Value Reference Range Interpretation Comments Ventricular rate (test code = 253) Atrial rate (test code = 255) MO interval (test code = 266) QRSD interval [...] 04-JUN-2021 18:19,-No significant change was found- [address]2021-12-27 17:27:33 Test Item Value Reference Range Interpretation Comments Ventricular rate (test code = 253) Atrial rate (test code = 255) MO interval (test code = 266) QRSD interval [...] change was found- [facility] utexkv9676-87-04 11:06:00 Test Item Value Reference Range Interpretation Comments ABO grouping (test code = 883-9) B Rh type (test code = 44600-6) POS Antibody screen (gel) (test code = NEG 890-4) [facility] gcldpb4186-23-81 11:06:00 Test Item Value Reference Range Interpretation Comments ABO grouping (test code = 883-9) B Rh type (test code = 98595-8) POS Antibody screen (gel) (test code = NEG 890-4) [facility] zitqzg3998-25-46 11:06:00 Test Item Value Reference Range Interpretation Comments ABO grouping (test code = 883-9) B Rh type (test code = 13153-8) POS Antibody screen (gel) (test code = NEG 890-4) [facility] and mejnph2660-15-84 11:06:00 Test Item Value Reference Range Interpretation Comments ABO grouping (test code = 883-9) B Rh type (test code = 46018-8) POS Antibody screen (gel) (test code = NEG 890-4) [facility] and levlie9267-48-19 11:06:00 Test Item Value Reference Range Interpretation Comments ABO grouping (test code = 883-9) B Rh type (test code = 69265-0) POS Antibody screen (gel) (test code = NEG 890-4) [facility] and ipfyag9697-22-81 11:06:00 Test Item Value Reference Range Interpretation Comments ABO grouping (test code = 883-9) B Rh type (test code = 99596-9) POS Antibody screen (gel) (test code = NEG 890-4) [facility] and rgaise3648-59-56 11:06:00 Test Item Value Reference Range Interpretation Comments ABO grouping (test code = 883-9) B Rh type (test code = 11709-5) POS Antibody screen (gel) (test code = NEG 890-4) [facility] and bruhky8805-99-90 11:06:00 Test Item Value Reference Range Interpretation Comments ABO grouping (test code = 883-9) B Rh type (test code = 66075-8) POS Antibody screen (gel) (test code = NEG 890-4) [facility] tnugwx9779-77-89 11:06:00 Test Item Value Reference Range Interpretation Comments ABO grouping (test code = 883-9) B Rh type (test code = 20976-5) POS Antibody screen (gel) (test code = NEG 890-4) [facility] and ozaeuz7206-63-05 11:06:00 Test Item Value Reference Range Interpretation Comments ABO grouping (test code = 883-9) B Rh type (test code = 45413-4) POS Antibody screen (gel) (test code = NEG 890-4) [facility] wzzlbt4120-32-85 11:06:00 Test Item Value Reference Range Interpretation Comments ABO grouping (test code = 883-9) B Rh type (test code = 43056-6) POS Antibody screen (gel) (test code = NEG 890-4) [facility] eoicsx8765-65-86 11:06:00 Test Item Value Reference Range Interpretation Comments ABO grouping (test code = 883-9) B Rh type (test code = 44870-4) POS Antibody screen (gel) (test code = NEG 890-4) [facility] rmaqtn4306-95-34 11:06:00 Test Item Value Reference Range Interpretation Comments ABO grouping (test code = 883-9) B Rh type (test code = 49168-2) POS Antibody screen (gel) (test code = NEG 890-4) [facility] [Presence] in Respiratory specimen by EMANUEL with probe wmfttkjbq8087-99-55 19:37:44 Test Item Value Reference Range Interpretation Comments SARS-CoV-2 (COVID-19) RNA Not detected Not-Detected [Presence] in Respiratory specimen by EMANUEL with probe detection (test code = 13122-1) 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 (test code = 04254-8) Whether the patient has symptoms related to condition of interest (test code = 16861-1) Patient was hospitalized because of this condition (test code = 60494-8) Whether the patient was admitted to intensive care unit (ICU) for condition of interest (test code = 78692-4) Whether patient resides in a congregate care setting (test code = 77145-1) S[facility]NEY [facility] quqruoy9838-28-73 20:18:46 Test Item Value Reference Range Interpretation Comments Tissue culture No growth Specimen isolate (test after 3 days. InformationSp ecimen code = 99771-0) Source: Tiss ueSpecimen Site: Thigh: in fected right thigh wou nd [facility] vfyhnab9580-37-45 20:18:46 Test Item Value Reference Range Interpretation Comments Tissue culture No growth Specimen isolate (test after 3 days. InformationSp ecimen code = 10706-2) Source: Gino Pangimen Site: Thigh: in fected right thigh wou [facility] rwimyay1654-53-59 20:18:46 Test Item Value Reference Range Interpretation Comments Tissue culture No growth Specimen isolate (test after 3 days. InformationSp ecimen code = 47064-6) Source: Gino uBrandieimen Site: Thigh: in fected right thigh wou [facility]2021-12-24 20:18:46 Test Item Value Reference Range Interpretation Comments Tissue culture No growth Specimen isolate (test after 3 days. InformationSp ecimen code = 70916-8) Source: Gino Pangimen Site: Thigh: in fected right thigh wou [facility]2021-12-24 20:18:46 Test Item Value Reference Range Interpretation Comments Tissue culture No growth Specimen isolate (test after 3 days. InformationSp ecimen code = 97554-5) Source: Gino Pangimen Site: Thigh: in fected right thigh wou [facility]2021-12-24 20:18:46 Test Item Value Reference Range Interpretation Comments Tissue culture No growth Specimen isolate (test after 3 days. InformationSp ecimen code = 61816-1) Source: Gino Pangimen Site: Thigh: in fected right thigh wou [facility] lhzcxaf8699-13-57 20:18:46 Test Item Value Reference Range Interpretation Comments Tissue culture No growth Specimen isolate (test after 3 days. InformationSp ecimen code = 87938-7) Source: Gino Pangimen Site: Thigh: in fected right thigh wou [facility] ylgqjho5527-06-63 20:18:46 Test Item Value Reference Range Interpretation Comments Tissue culture No growth Specimen isolate (test after 3 days. InformationSp ecimen code = 23323-8) Source: Gino Pangimen Site: Thigh: in fected right thigh wou [facility] qteeoal0159-80-66 20:18:46 Test Item Value Reference Range Interpretation Comments Tissue culture No growth Specimen isolate (test after 3 days. InformationSp ecimen code = 95832-2) Source: Tiss ueSpecimen Site: Thigh: in fected [facility] ndlmxsx2362-64-44 20:18:46 Test Item Value Reference Range Interpretation Comments Tissue culture No growth Specimen isolate (test after 3 days. InformationSp ecimen code = 95216-4) Source: [facility] ueSpecimen Site: Thigh: in fected right thigh wou [facility] wydruen9090-05-95 20:18:46 Test Item Value Reference Range Interpretation Comments Tissue culture No growth Specimen isolate (test after 3 days. InformationSp ecimen code = 23298-0) Source: [facility] ueSpecimen Site: Thigh: in fected right thigh wou [facility] htqgu2657-97-09 20:24:42 Test Item Value Reference Range Interpretation Comments AFB stain No acid fast Specimen (test code = bacilli (AFB) InformationSpe cimen 676-7) seen. Source: Drainag eSpecimen Site: Thigh: [facility] qsqku8775-78-94 20:24:42 Test Item Value Reference Range Interpretation Comments AFB stain No acid fast Specimen (test code = bacilli (AFB) InformationSpe cimen 676-7) seen. Source: [place] eSpecimen Site: Thigh: [facility] cqrgr1511-83-48 20:24:42 Test Item Value Reference Range Interpretation Comments AFB stain No acid fast Specimen (test code = bacilli (AFB) InformationSpe cimen 676-7) seen. Source: [place] eSpecimen Site: Thigh: [facility] yhhsj2507-18-61 20:24:42 Test Item Value Reference Range Interpretation Comments AFB stain No acid fast Specimen (test code = bacilli (AFB) InformationSpe cimen 676-7) seen. Source: [place] eSpecimen Site: Thigh: [facility] gikje0497-96-46 20:24:42 Test Item Value Reference Range Interpretation Comments AFB stain No acid fast Specimen (test code = bacilli (AFB) InformationSpe cimen 676-7) seen. Source: [place] eSpecimen Site: Thigh: [facility] hdnch3497-24-93 20:24:42 Test Item Value Reference Range Interpretation Comments AFB stain No acid fast Specimen (test code = bacilli (AFB) InformationSpe cimen 676-7) seen. Source: [place] eSpecimen Site: Thigh: [facility] zejxw0904-42-97 20:24:42 Test Item Value Reference Range Interpretation Comments AFB stain No acid fast Specimen (test code = bacilli (AFB) InformationSpe cimen 676-7) seen. Source: [place] eSpecimen Site: Thigh: in fected wound right [facility]2021-12-23 20:24:42 Test Item Value Reference Range Interpretation Comments AFB stain No acid fast Specimen (test code = bacilli (AFB) InformationSpe cimen 676-7) seen. Source: [place] eSpecimen Site: Thigh: [facility] [id number] 20:24:42 Test Item Value Reference Range Interpretation Comments AFB stain No acid fast Specimen (test code = bacilli (AFB) InformationSpe cimen 676-7) seen. Source: [place] eSpecimen Site: Thigh: in fected wound right [facility]2021-12-23 20:24:42 Test Item Value Reference Range Interpretation Comments AFB stain No acid fast Specimen (test code = bacilli (AFB) InformationSpe cimen 676-7) seen. Source: [place] eSpecimen Site: Thigh: in fected wound right [facility]2021-12-23 20:24:42 Test Item Value Reference Range Interpretation Comments AFB stain No acid fast Specimen (test code = bacilli (AFB) InformationSpe cimen 676-7) seen. Source: [place] eSpecimen Site: Thigh: in fected wound right [facility] qnfxgwm7171-79-91 09:49:57 Test Item Value Reference Range Interpretation Comments Urine culture No growth Specimen isolate (test after [facility] code = 41623-3) hours Source: Urin eSpecimen Site: Clean cat [facility] oyxxawd5229-81-37 09:49:57 Test Item Value Reference Range Interpretation Comments Urine culture No growth Specimen isolate (test after 24 InformationSpe cimen code = 40582-7) hours Source: Urin eSpecimen Site: [facility]2021-12-20 09:49:57 Test Item Value Reference Range Interpretation Comments Urine culture No growth Specimen isolate (test after 24 InformationSpe cimen code = 81496-2) hours Source: Urin eSpecimen Site: [facility]2021-12-20 09:49:57 Test Item Value Reference Range Interpretation Comments Urine culture No growth Specimen isolate (test after 24 InformationSpe cimen code = 97483-7) hours Source: Urin eSpecimen Site: [facility]2021-12-20 09:49:57 Test Item Value Reference Range Interpretation Comments Urine culture No growth Specimen isolate (test after 24 InformationSpe cimen code = 66707-3) hours Source: Urin eSpecimen Site: [facility]2021-12-20 09:49:57 Test Item Value Reference Range Interpretation Comments Urine culture No growth Specimen isolate (test after 24 InformationSpe cimen code = 57300-4) hours Source: Urin eSpecimen Site: [facility]2021-12-20 09:49:57 Test Item Value Reference Range Interpretation Comments Urine culture No growth Specimen isolate (test after 24 InformationSpe cimen code = 78213-3) hours Source: Urin eSpecimen Site: [facility]2021-12-20 09:49:57 Test Item Value Reference Range Interpretation Comments Urine culture No growth Specimen isolate (test after 24 InformationSpe cimen code = 32960-8) hours Source: Urin eSpecimen Site: [facility]2021-12-20 09:49:57 Test Item Value Reference Range Interpretation Comments Urine culture No growth Specimen isolate (test after 24 InformationSpe cimen code = 85867-1) hours Source: Urin eSpecimen Site: [facility]2021-12-20 09:49:57 Test Item Value Reference Range Interpretation Comments Urine culture No growth Specimen isolate (test after 24 InformationSpe cimen code = 56438-8) hours [facility] Hospital[facility] qlvymua0821-15-66 09:49:57 Test Item Value Reference Range Interpretation Comments Urine culture No growth Specimen isolate (test [facility] = 93979-8) hours Source: [facility] Site: Clean cat [facility] Rh akazbhlgqfgp6552-78-21 12:52:00 Test Item Value Reference Range Interpretation Comments ABO grouping (test code = 883-9) B Rh type (test code = 81684-6) POS [facility] gwpugrozdavp6371-96-87 12:52:00 Test Item Value Reference Range Interpretation Comments ABO grouping (test code = 883-9) B Rh type (test code = 37326-4) POS [facility] Rh lnogflnvuccl8355-64-23 12:52:00 Test Item Value Reference Range Interpretation Comments ABO grouping (test code = 883-9) B Rh type (test code = 91683-8) POS [facility] Rh wchyvuaxjwiv7588-47-18 12:52:00 Test Item Value Reference Range Interpretation Comments ABO grouping (test code = 883-9) B Rh type (test code = 49306-7) POS [facility] Rh ponyieonytdb3621-83-66 12:52:00 Test Item Value Reference Range Interpretation Comments ABO grouping (test code = 883-9) B Rh type (test code = 98165-5) POS [facility] aclrxvgyxoub5424-19-53 12:52:00 Test Item Value Reference Range Interpretation Comments ABO grouping (test code = 883-9) B Rh type (test code = 69732-5) POS [facility] Rh lydvcjzjbyxn9519-99-48 12:52:00 Test Item Value Reference Range Interpretation Comments ABO grouping (test code = 883-9) B Rh type (test code = 09680-4) POS [facility] pojbdridibcd8934-88-98 12:52:00 Test Item Value Reference Range Interpretation Comments ABO grouping (test code = 883-9) B Rh type (test code = 02131-1) POS [facility] Rh cguyjtmzlfbt8876-18-52 12:52:00 Test Item Value Reference Range Interpretation Comments ABO grouping (test code = 883-9) B Rh type (test code = 75606-8) [facility] gpzjbomsgvkt1577-46-46 12:52:00 Test Item Value Reference Range Interpretation Comments ABO grouping (test code = 883-9) B Rh type (test code = 79865-7) POS [facility] dwhdhfakvrjv5550-44-29 12:52:00 Test Item Value Reference Range Interpretation Comments ABO grouping (test code = 883-9) B Rh type (test code = 75804-2) [facility] [Presence] in Respiratory specimen by EMANUEL with probe niaptknru1279-39-35 03:04:32 Test Item Value Reference Range Interpretation Comments SARS-CoV-2 (COVID-19) RNA Not detected Not-Detected [Presence] in Respiratory specimen by EMANUEL with probe detection (test code = 58849-9) 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 (test code = 57684-4) Whether the patient has symptoms related to condition of interest (test code = 29611-4) Patient was hospitalized because of this condition (test code = 25864-0) Whether the patient was admitted to intensive care unit (ICU) for condition of interest (test code = 86825-0) Whether patient resides in a congregate care setting (test code = 42235-6) [facility], 1 [id number] 22:22:00 Test Item Value Reference Range Interpretation Comments Product name (test code Red Blood Cells -1, = 25) Leukored Unit number (test code = [id number]) Product code (test code V0060O43 = 3092) Dispense status (test Transfused code = 24) Blood expiration date (test code = 302) Blood type code (test code = 308) Blood type (test code = B POSITIVE 1314) Compatibility (test code Compatible = 6400) [facility] RBC, 1 Sawfe8170-82-87 22:22:00 Test Item Value Reference Range Interpretation Comments Product name (test code Red Blood Cells -1, = 25) Leukored Unit number (test code = [id number]) Product code (test code D1482Y19 = 3092) Dispense status (test Transfused code = 24) Blood expiration date (test code = 302) Blood type code (test code = 308) Blood type (test code = B POSITIVE 1314) Compatibility (test code Compatible = 6400) [facility], 1 Aakno5982-19-71 22:22:00 Test Item Value Reference Range Interpretation Comments Product name (test code Red Blood Cells -1, = 25) Leukored Unit number (test code = [id number]) Product code (test code V8956U21 = 3092) Dispense status (test Transfused code = 24) Blood expiration date (test code = 302) Blood type code (test code = 308) Blood type (test code = B POSITIVE 1314) Compatibility (test code Compatible = 6400) [facility] RBC, 1 Jizut3617-97-72 22:22:00 Test Item Value Reference Range Interpretation Comments Product name (test code Red Blood Cells -1, = 25) Leukored Unit number (test code = [id number]) Product code (test code I8432C04 = 3092) Dispense status (test Transfused code = 24) Blood expiration date (test code = 302) Blood type code (test code = 308) Blood type (test code = B POSITIVE 1314) Compatibility (test code Compatible = 6400) [facility] RBC, 1 Ghbdr1032-17-14 22:22:00 Test Item Value Reference Range Interpretation Comments Product name (test code Red Blood Cells -1, = 25) Leukored Unit number (test code = [id number]) Product code (test code O1970A20 = 3092) Dispense status (test Transfused code = 24) Blood expiration date (test code = 302) Blood type code (test code = 308) Blood type (test code = B POSITIVE 1314) Compatibility (test code Compatible = 6400) [facility] RBC, 1 Wrksi1721-33-25 22:22:00 Test Item Value Reference Range Interpretation Comments Product name (test code Red Blood Cells -1, = 25) Leukored Unit number (test code = [id number]) Product code (test code Q1596I35 = 3092) Dispense status (test Transfused code = 24) Blood expiration date (test code = 302) Blood type code (test code = 308) Blood type (test code = B POSITIVE 1314) Compatibility (test code Compatible = 6400) [facility] RBC, 1 Eraqy5582-16-57 22:22:00 Test Item Value Reference Range Interpretation Comments Product name (test code Red Blood Cells -1, = 25) Leukored Unit number (test code = [id number]) Product code (test code L9653S42 = 3092) Dispense status (test Transfused code = 24) Blood expiration date (test code = 302) Blood type code (test code = 308) Blood type (test code = B POSITIVE 1314) Compatibility (test code Compatible = 6400) [facility], 1 [id number] 22:22:00 Test Item Value Reference Range Interpretation Comments Product name (test code Red Blood Cells -1, = 25) Leukored Unit number (test code = [id number]) Product code (test code P7379A43 = 3092) Dispense status (test Transfused code = 24) Blood expiration date (test code = 302) Blood type code (test code = 308) Blood type (test code = B POSITIVE 1314) Compatibility (test code Compatible = 6400) [facility], 1 [id number] 22:22:00 Test Item Value Reference Range Interpretation Comments Product name (test code Red Blood Cells -1, = 25) Leukored Unit number (test code = [id number]) Product code (test code D9375D62 = 3092) Dispense status (test Transfused code = 24) Blood expiration date (test code = 302) Blood type code (test code = 308) Blood type (test code = B POSITIVE 1314) Compatibility (test code Compatible = 6400) [facility] [id number] 22:22:00 Test Item Value Reference Range Interpretation Comments Product name (test code Red Blood Cells -1, = 25) Leukored Unit number (test code = [id number]) Product code (test code E6132K01 = 3092) Dispense status (test Transfused code = 24) Blood expiration date (test code = 302) Blood type code (test code = 308) Blood type (test code = B POSITIVE 1314) Compatibility (test code Compatible = 6400) [facility] pathology [id number] 20:10:46 Test Item Value Reference Range Interpretation Comments Case number (test code = [id number]) Surgical pathology See link below for report (test code = PDF Lab Report 2255) Result status (test code This is Final Report = [id number]) for [address] pathology [id number] 20:10:46 Test Item Value Reference Range Interpretation Comments Case number (test code = [id number]) Surgical pathology See link below for report (test code = PDF Lab Report 2255) Result status (test code This is Final Report = [id number]) for [address] pathology qhaehvp1338-28-19 20:10:46 Test Item Value Reference Range Interpretation Comments Case number (test code = [id number]) Surgical pathology See link below for report (test code = PDF Lab Report 2255) Result status (test code This is Final Report = [id number]) for [address] pathology azdlgdz3830-43-04 20:10:46 Test Item Value Reference Range Interpretation Comments Case number (test code = [id number]) Surgical pathology See link below for report (test code = PDF Lab Report 2255) Result status (test code This is Final Report = [id number]) for [address] pathology [id number] 20:10:46 Test Item Value Reference Range Interpretation Comments Case number (test code = [id number]) Surgical pathology See link below for report (test code = PDF Lab Report 2255) Result status (test code This is Final Report = [id number]) for [address] pathology kiwepgv0850-84-14 20:10:46 Test Item Value Reference Range Interpretation Comments Case number (test code = [id number]) Surgical pathology See link below for report (test code = PDF Lab Report 2255) Result status (test code This is Final Report = [id number]) for [address] pathology mxsopzf6711-86-08 20:10:46 Test Item Value Reference Range Interpretation Comments Case number (test code = [id number]) Surgical pathology See link below for report (test code = PDF Lab Report 2255) Result status (test code This is Final Report = [id number]) for [address] pathology tfrhesy2093-32-81 20:10:46 Test Item Value Reference Range Interpretation Comments Case number (test code = [id number]) Surgical pathology See link below for report (test code = PDF Lab Report 2255) Result status (test code This is Final Report = [id number]) for [address] pathology [id number] 20:10:46 Test Item Value Reference Range Interpretation Comments Case number (test code = [id number]) Surgical pathology See link below for report (test code = PDF Lab Report 2255) Result status (test code This is Final Report = [id number]) for [address] pathology awcvtem0661-07-91 20:10:46 Test Item Value Reference Range Interpretation Comments Case number (test code = [id number]) Surgical pathology See link below for report (test code = PDF Lab Report 2255) Result status (test code This is Final Report = [id number]) for [address] [facility] platelet pheresis, 1 Cjwws4971-33-79 15:35:00 Test Item Value Reference Range Interpretation Comments Product name (test code Platerick Henleyh LR, Path = 25) Red cont3 Unit number (test code = [id number]) Product code (test code K1969Z72 = 3092) Dispense status (test Transfused code = 24) Blood expiration date (test code = 302) Blood type code (test code = 308) Blood type (test code = O POSITIVE 1314) Compatibility (test code Not required = 6400) [facility] pheres[facility], 1 Eotqy8722-94-89 15:35:00 Test Item Value Reference Range Interpretation Comments Product name (test code Platele tAph LR, Path = 25) Red cont3 Unit number (test code = [id number] 9455819) Product code (test code M4445T73 = 3092) Dispense status (test Transfused code = 24) Blood expiration date (test code = 302) Blood type code (test code = 308) Blood type (test code = O POSITIVE 1314) Compatibility (test code Not required = 6400) [facility], 1 [id number] 15:35:00 Test Item Value Reference Range Interpretation Comments Product name (test code Platerick Henleyh LR, Path = 25) Red cont3 Unit number (test code = [id number] 8961513) Product code (test code H7359N07 = 3092) Dispense status (test Transfused code = 24) Blood expiration date (test code = 302) Blood type code (test code = 308) Blood type (test code = O POSITIVE 1314) Compatibility (test code Not required = 6400) [facility], 1 [id number] 15:35:00 Test Item Value Reference Range Interpretation Comments Product name (test code Platerick Henley LR, Path = 25) Red cont3 Unit number (test code = [id number] 4889349) Product code (test code P6881E70 = 3092) Dispense status (test Transfused code = 24) Blood expiration date (test code = 302) Blood type code (test code = 308) Blood type (test code = O POSITIVE 1314) Compatibility (test code Not required = 6400) [facility], 1 [id number] 15:35:00 Test Item Value Reference Range Interpretation Comments Product name (test code Platerick Henley LR, Path = 25) Red cont3 Unit number (test code = [id number] 6930870) Product code (test code X9469M75 = 3092) Dispense status (test Transfused code = 24) Blood expiration date (test code = 302) Blood type code (test code = 308) Blood type (test code = O POSITIVE 1314) Compatibility (test code Not required = 6400) [facility], 1 Chfro4569-62-22 15:35:00 Test Item Value Reference Range Interpretation Comments Product name (test code Platerick tAph LR, Path = 25) Red cont3 Unit number (test code = [id number] 1163516) Product code (test code J0221K56 = 3092) Dispense status (test Transfused code = 24) Blood expiration date (test code = 302) Blood type code (test code = 308) Blood type (test code = O POSITIVE 1314) Compatibility (test code Not required = 6400) [facility], 1 [id number] 15:35:00 Test Item Value Reference Range Interpretation Comments Product name (test code Platerick tAp LR, Path = 25) Red cont3 Unit number (test code = [id number] 2519470) Product code (test code Q5411H81 = 3092) Dispense status (test Transfused code = 24) Blood expiration date (test code = 302) Blood type code (test code = 308) Blood type (test code = O POSITIVE 1314) Compatibility (test code Not required = 6400) [facility], 1 Qqajf2377-01-46 15:35:00 Test Item Value Reference Range Interpretation Comments Product name (test code Platerick [facility], Path = 25) Red cont3 Unit number (test code = [id number] 7969244) Product code (test code P3909L45 = 3092) Dispense status (test Transfused code = 24) Blood expiration date (test code = 302) Blood type code (test code = 308) Blood type (test code = O POSITIVE 1314) Compatibility (test code Not required = 6400) [facility], 1 Taewx4616-80-62 15:35:00 Test Item Value Reference Range Interpretation Comments Product name (test code Platerick tAp LR, Path = 25) Red cont3 Unit number (test code = [id number] 0040377) Product code (test code N6700U80 = 3092) Dispense status (test Transfused code = 24) Blood expiration date (test code = 302) Blood type code (test code = 308) Blood type (test code = O POSITIVE 1314) Compatibility (test code Not required = 6400) [facility], 1 [id number] 15:35:00 Test Item Value Reference Range Interpretation Comments Product name (test code Plate tAp LR, Path = 25) Red cont3 Unit number (test code = [id number] 5889892) Product code (test code G1365T47 = 3092) Dispense status (test Transfused code = 24) Blood expiration date (test code = 302) Blood type code (test code = 308) Blood type (test code = O POSITIVE 1314) Compatibility (test code Not required = 6400) [facility] uyzz1287-00-85 12:13:24 Test Item Value Reference Range Interpretation Comments Activated clotting time See_Comment H Oper ator Name: (test code = 5298) Bryn R eneaDevice ID: [id number] [Automated mess age] The system manetch generated this result transmitted ref erence range: 96 - 152 sec. The reference r leo was not used to interpret this result as normal/abnor mal. Lab Interpretation (test Abnormal code = 75992-1) [facility] etlz4644-05-33 12:13:24 Test Item Value Reference Range Interpretation Comments Activated clotting time See_Comment H Oper ator Name: (test code = 5298) Jorikkiiameet R eneaDevice ID: [id number] [Automated mess age] The system manetch generated this result transmitted ref erence range: 96 - 152 sec. The reference r leo was not used to interpret this result as normal/abnor mal. Lab Interpretation (test Abnormal code = 87309-3) [facility] xjna1846-57-84 12:13:24 Test Item Value Reference Range Interpretation Comments Activated clotting time See_Comment H Oper ator Name: (test code = 5298) Jorikkiiameet R eneaDevice ID: [id number] [Automated mess age] The system manetch generated this result transmitted ref erence range: 96 - 152 sec. The reference r leo was not used to interpret this result as normal/abnor mal. Lab Interpretation (test Abnormal code = 43846-7) [facility] izzr1446-90-52 12:13:24 Test Item Value Reference Range Interpretation Comments Activated clotting time See_Comment H Oper ator Name: (test code = 5298) Bryn R eneaDevice ID: [id number] [Automated mess age] The system whic h generated this result transmitted ref erence range: 96 - 152 sec. The reference r leo was not used to interpret this result as normal/abnor mal. Lab Interpretation (test Abnormal code = 00099-5) [facility] mnma4008-54-99 12:13:24 Test Item Value Reference Range Interpretation Comments Activated clotting time See_Comment H Oper ator Name: (test code = 5298) Bryn Eduin eneaDevice ID: [id number] [Automated mess age] The system manetch generated this result transmitted ref erence range: 96 - 152 sec. The reference r leo was not used to interpret this result as normal/abnor mal. Lab Interpretation (test Abnormal code = 61572-3) [facility] edxf0437-85-03 12:13:24 Test Item Value Reference Range Interpretation Comments Activated clotting time See_Comment H Oper ator Name: (test code = 5298) Penelopemeet R eneaDevice ID: [id number] [Automated mess age] The system manetch generated this result transmitted ref erence range: 96 - 152 sec. The reference r leo was not used to interpret this result as normal/abnor mal. Lab Interpretation (test Abnormal code = 77352-9) [facility] xqnm0652-83-47 12:13:24 Test Item Value Reference Range Interpretation Comments Activated clotting time See_Comment H Oper ator Name: (test code = 5298) Bryn R eneaDevice ID: [id number] [Automated mess age] The system manetch generated this result transmitted ref erence range: 96 - 152 sec. The reference r leo was not used to interpret this result as normal/abnor mal. Lab Interpretation (test Abnormal code = 21983-6) [facility] uppl2969-68-18 12:13:24 Test Item Value Reference Range Interpretation Comments Activated clotting time See_Comment H Oper ator Name: (test code = 5298) Bryn R eneaDevice ID: [id number] [Automated mess age] The system manetch generated this result transmitted ref erence range: 96 - 152 sec. The reference r leo was not used to interpret this result as normal/abnor mal. Lab Interpretation (test Abnormal code = 05152-2) [facility] krqw9049-17-50 12:13:24 Test Item Value Reference Range Interpretation Comments Activated clotting time See_Comment H Oper ator Name: (test code = 5298) Bryn Denny Silvianovice ID: [id number] [Automated mess age] The system manetch generated this result transmitted ref erence range: 96 - 152 sec. The reference r leo was not used to interpret this result as normal/abnor mal. Lab Interpretation (test Abnormal code = 59121-2) [facility] [id number] 12:13:24 Test Item Value Reference Range Interpretation Comments Activated clotting time See_Comment H Oper ator Name: (test code = 5298) Bryn Denny Silvianovice ID: [id number] [Automated mess age] The system manetch generated this result transmitted ref erence range: 96 - 152 sec. The reference r leo was not used to interpret this result as normal/abnor mal. Lab Interpretation (test Abnormal code = 11919-0) [facility] ftvze8659-11-22 14:37:48 Test Item Value Reference Range Interpretation Comments POC sodium (test code = 138 mmol/L 280-269 8640-0) POC potassium (test 5.5 mmol/L 3.5-5 H code = 6298-4) POC glucose (test code 295 mg/dL 65-99 H = 2339-0) POC creatinine (test 5.3 mg/dl 0.5-0.9 H Operato r Name: Pugne code = 85914-8) Viridiana ID: [id number] POC hemoglobin (test 18.4 g/dL 12-16 H code = 718-7) POC hematocrit (test 54 % 37-47 H code = 4544-3) Lab Interpretation Abnormal (test code = 27568-4) [facility] bnkym3035-04-24 14:37:48 Test Item Value Reference Range Interpretation Comments POC sodium (test code = 138 mmol/L 256-450 0360-0) POC potassium (test 5.5 mmol/L 3.5-5 H code = 6298-4) POC glucose (test code 295 mg/dL 65-99 H = 2339-0) POC creatinine (test 5.3 mg/dl 0.5-0.9 H Operato r Name: Carminae code = 12490-8) AileenDevice ID: [id number] POC hemoglobin (test 18.4 g/dL 12-16 H code = 718-7) POC hematocrit (test 54 % 37-47 H code = 4544-3) Lab Interpretation Abnormal (test code = 77117-2) [facility]2021-11-29 14:37:48 Test Item Value Reference Range Interpretation Comments POC sodium (test code = 138 mmol/L 513-272 7046-0) POC potassium (test 5.5 mmol/L 3.5-5 H code = 6298-4) POC glucose (test code 295 mg/dL 65-99 H = 2339-0) POC creatinine (test 5.3 mg/dl 0.5-0.9 H Operato r Name: Carminae code = 33574-8) AileenDevice ID: [id number] POC hemoglobin (test 18.4 g/dL 12-16 H code = 718-7) POC hematocrit (test 54 % 37-47 H code = 4544-3) Lab Interpretation Abnormal (test code = 73893-2) [facility]2021-11-29 14:37:48 Test Item Value Reference Range Interpretation Comments POC sodium (test code = 138 mmol/L 570-360 2836-0) POC potassium (test 5.5 mmol/L 3.5-5 H code = 6298-4) POC glucose (test code 295 mg/dL 65-99 H = 2339-0) POC creatinine (test 5.3 mg/dl 0.5-0.9 H Operato r Name: Carminae code = 42419-3) AileenDevice ID: [id number] POC hemoglobin (test 18.4 g/dL 12-16 H code = 718-7) POC hematocrit (test 54 % 37-47 H code = 4544-3) Lab Interpretation Abnormal (test code = 24162-5) [facility]2021-11-29 14:37:48 Test Item Value Reference Range Interpretation Comments POC sodium (test code = 138 mmol/L 125-076 8319-0) POC potassium (test 5.5 mmol/L 3.5-5 H code = 6298-4) POC glucose (test code 295 mg/dL 65-99 H = 2339-0) POC creatinine (test 5.3 mg/dl 0.5-0.9 H Operato r Name: Johannae code = 37643-9) AiljoshDevice ID: [id number] POC hemoglobin (test 18.4 g/dL 12-16 H code = 718-7) POC hematocrit (test 54 % 37-47 H code = 4544-3) Lab Interpretation Abnormal (test code = 99124-1) [facility]2021-11-29 14:37:48 Test Item Value Reference Range Interpretation Comments POC sodium (test code = 138 mmol/L 611-889 8052-0) POC potassium (test 5.5 mmol/L 3.5-5.0 H code = 6298-4) POC glucose (test code 295 mg/dL 65-99 H = 2339-0) POC creatinine (test 5.3 mg/dl 0.5-0.9 H Operato r Name: Johannae code = 27167-7) AiljoshDevice ID: [id number] POC hemoglobin (test 18.4 g/dL 12.0-16.0 H code = 718-7) POC hematocrit (test 54 % 37-47 H code = 4544-3) Lab Interpretation Abnormal (test code = 55268-7) [facility]2021-11-29 14:37:48 Test Item Value Reference Range Interpretation Comments POC sodium (test code = 138 mmol/L 303-514 2558-0) POC potassium (test 5.5 mmol/L 3.5-5.0 H code = 6298-4) POC glucose (test code 295 mg/dL 65-99 H = 2339-0) POC creatinine (test 5.3 mg/dl 0.5-0.9 H Operato r Name: Carminagne code = 15545-8) AileenDevice ID: [id number] POC hemoglobin (test 18.4 g/dL 12.0-16.0 H code = 718-7) POC hematocrit (test 54 % 37-47 H code = 4544-3) Lab Interpretation Abnormal (test code = 84207-9) [facility]2021-11-29 14:37:48 Test Item Value Reference Range Interpretation Comments POC sodium (test code = 138 mmol/L 135-981 7367-0) POC potassium (test 5.5 mmol/L 3.5-5 H code = 6298-4) POC glucose (test code 295 mg/dL 65-99 H = 2339-0) POC creatinine (test 5.3 mg/dl 0.5-0.9 H Operato r Name: Pugne code = 90623-7) AiljoshDevice ID: [id number] POC hemoglobin (test 18.4 g/dL 12-16 H code = 718-7) POC hematocrit (test 54 % 37-47 H code = 4544-3) Lab Interpretation Abnormal (test code = 43716-9) [facility]2021-11-29 14:37:48 Test Item Value Reference Range Interpretation Comments POC sodium (test code = 138 mmol/L 268-546 1780-0) POC potassium (test 5.5 mmol/L 3.5-5 H code = 6298-4) POC glucose (test code 295 mg/dL 65-99 H = 2339-0) POC creatinine (test 5.3 mg/dl 0.5-0.9 H Operato r Name: Pugne code = 84864-0) AileenDevice ID: [id number] POC hemoglobin (test 18.4 g/dL 12-16 H code = 718-7) POC hematocrit (test 54 % 37-47 H code = 4544-3) Lab Interpretation Abnormal (test code = 57299-3) [facility]2021-11-29 14:37:48 Test Item Value Reference Range Interpretation Comments POC sodium (test code = 138 mmol/L 652-010 1247-0) POC potassium (test 5.5 mmol/L 3.5-5 H code = 6298-4) POC glucose (test code 295 mg/dL 65-99 H = 2339-0) POC creatinine (test 5.3 mg/dl 0.5-0.9 H Operato r Name: Pugne code = 81899-9) AileenDevice ID: [id number] POC hemoglobin (test 18.4 g/dL 12-16 H code = 718-7) POC hematocrit (test 54 % 37-47 H code = 4544-3) Lab Interpretation Abnormal (test code = 10855-1) [facility] [Presence] in Respiratory specimen by EMANUEL with probe zbooowtvq8225-96-82 07:53:49 Test Item Value Reference Range Interpretation Comments SARS-CoV-2 (COVID-19) RNA Not detected Not-Detected [Presence] in Respiratory specimen by EMANUEL with probe detection (test code = 01933-3) 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 (test code = 06721-5) Whether the patient has symptoms related to condition of interest (test code = 05172-9) Patient was hospitalized because of this condition (test code = 76592-0) Whether the patient was admitted to intensive care unit (ICU) for condition of interest (test code = 60178-4) Whether patient resides in a congregate care setting (test code = 91800-9) [facility]2021-08-11 08:17:00 Test Item Value Reference Range Interpretation Comments Glucose Lvl (test code = Glucose Lvl) 94 70-99 [facility]2021-08-11 08:17:00 Test Item Value Reference Range Interpretation Comments BUN (test code = BUN) 27 7-22 [facility]2021-08-11 08:17:00 Test Item Value Reference Range Interpretation Comments Creatinine Lvl (test code = Creatinine 4.95 0.50-1.40 Lvl) [facility]2021-08-11 08:17:00 Test Item Value Reference Range Interpretation Comments Sodium Lvl (test code = Sodium Lvl) 136 135-145 [facility]2021-08-11 08:17:00 Test Item Value Reference Range Interpretation Comments Potassium Lvl (test code = Potassium 3.9 3.5-5.1 Lvl) [facility]2021-08-11 08:17:00 Test Item Value Reference Range Interpretation Comments Chloride Lvl (test code = Chloride Lvl) 103 95-109 [place] 388371-08-11 08:17:00 Test Item Value Reference Range Interpretation Comments CO2 (test code = CO2) 30 24-32 [place] 388371-08-11 08:17:00 Test Item Value Reference Range Interpretation Comments AGAP (test code = AGAP) 6.9 10.0-20.0 [facility]2021-08-11 08:17:00 Test Item Value Reference Range Interpretation Comments Calcium Lvl (test code = Calcium Lvl) 8.5 8.5-10.5 [place] 388371-08-11 08:17:00 Test Item Value Reference Range Interpretation Comments eGFR (test code = eGFR) 10 [facility]2021-08-11 08:17:00 Test Item Value Reference Range Interpretation Comments Phosphorus (test code = Phosphorus) 3.0 2.5-4.5 [place] 388371-08-11 08:17:00 Test Item Value Reference Range Interpretation Comments Magnesium Lvl (test code = Magnesium 2.4 1.8-2.4 Lvl) [place] 876111-08-11 08:17:00 Test Item Value Reference Range Interpretation Comments WBC (test code = WBC) 2.3 3.7-10.4 [place] 876111-08-11 08:17:00 Test Item Value Reference Range Interpretation Comments RBC (test code = RBC) 2.65 4.20-5.40 [place] 876111-08-11 08:17:00 Test Item Value Reference Range Interpretation Comments Hgb (test code = Hgb) 7.9 12.0-16.0 [place] 876111-08-11 08:17:00 Test Item Value Reference Range Interpretation Comments Hct (test code = Hct) 24.0 36.0-48.0 [place] 876111-08-11 08:17:00 Test Item Value Reference Range Interpretation Comments MCV (test code = MCV) 90.6 80.0-98.0 [place] 876111-08-11 08:17:00 Test Item Value Reference Range Interpretation Comments MCH (test code = MCH) 29.7 pg 27.0-31.0 [place] 876111-08-11 08:17:00 Test Item Value Reference Range Interpretation Comments MCHC (test code = MCHC) 32.7 32.0-36.0 [place] 876111-08-11 08:17:00 Test Item Value Reference Range Interpretation Comments RDW (test code = RDW) 19.1 11.5-14.5 [place] [address]-08-11 08:17:00 Test Item Value Reference Range Interpretation Comments Platelet (test code = Platelet) 71 133-450 [facility] 08:17:00 Test Item Value Reference Range Interpretation Comments MPV (test code = MPV) 9.9 7.4-10.4 [facility]KdyipffUPSERBFRWW4200-23-31 08:17:00 Test Item Value Reference Range Interpretation Comments Segs (test code = Segs) 56.1 45.0-75.0 [facility]anoFyazugxRMUPVLEUIS1683-12-77 08:17:00 Test Item Value Reference Range Interpretation Comments Lymphocytes (test code = Lymphocytes) 28.9 20.0-40.0 [place] 876111-08-11 08:17:00 Test Item Value Reference Range Interpretation Comments Monocytes (test code = Monocytes) 8.1 2.0-12.0 [facility]YnrhskdEHHVXBWOBY5004-75-58 08:17:00 Test Item Value Reference Range Interpretation Comments Eosinophils (test code = 5.9 See_Comment [A utomated message] The Eosinophils) system which ge nerated this result tra nsmitted reference range : <=4.0. The reference r leo was not used to int erpret this result as normal/abnormal . [facility] [facility]B5270[facility]00 Test Item Value Reference Range Interpretation Comments Basophils (test code = 1.0 See_Comment [Aut omated message] The Basophils) system which ge nerated this result tra nsmitted reference range : <=1.0. The reference r leo was not used to int erpret this result as normal/abnormal . [facility]BmhgktnNZRNDVJTTX2342-84-08 08:17:00 Test Item Value Reference Range Interpretation Comments Neutrophils # (test code = Neutrophils 1.3 1.5-8.1 #) [facility]anoVbwtefdNQJZVSPUWK1795-07-49 08:17:00 Test Item Value Reference Range Interpretation Comments Lymphocytes # (test code = Lymphocytes 0.7 1.0-5.5 #) [place] 876111-08-11 08:17:00 Test Item Value Reference Range Interpretation Comments Monocytes # (test code 0.2 See_Comment [Aut omated message] The = Monocytes #) system which generated this result tra nsmitted reference range : <=0.8. The reference r leo was not used to int erpret this result as normal/abnormal . [facility]anoRzlmnbcLRDHBFUYWL7083-81-45 08:17:00 Test Item Value Reference Range Interpretation Comments Eosinophils # (test code 0.1 See_Comment [A utomated message] The = Eosinophils #) system [employer] generated this result tra nsmitted reference range : <=0.5. The reference r leo was not used to int erpret this result as normal/abnormal . [place] 388371-08-11 08:17:00 Test Item Value Reference Range Interpretation Comments Glucose Lvl (test code = Glucose Lvl) 94 70-99 [place] 388371-08-11 08:17:00 Test Item Value Reference Range Interpretation Comments BUN (test code = BUN) 27 7-22 [place] 388371-08-11 08:17:00 Test Item Value Reference Range Interpretation Comments Creatinine Lvl (test code = Creatinine 4.95 0.50-1.40 Lvl) [place] 388371-08-11 08:17:00 Test Item Value Reference Range Interpretation Comments Sodium Lvl (test code = Sodium Lvl) 136 135-145 [place] 388371-08-11 08:17:00 Test Item Value Reference Range Interpretation Comments Potassium Lvl (test code = Potassium 3.9 3.5-5.1 Lvl) [place] 388371-08-11 08:17:00 Test Item Value Reference Range Interpretation Comments Chloride Lvl (test code = Chloride Lvl) 103 95-109 [place] 388371-08-11 08:17:00 Test Item Value Reference Range Interpretation Comments CO2 (test code = CO2) 30 24-32 [place] 388371-08-11 08:17:00 Test Item Value Reference Range Interpretation Comments AGAP (test code = AGAP) 6.9 10.0-20.0 [place] 388371-08-11 08:17:00 Test Item Value Reference Range Interpretation Comments Calcium Lvl (test code = Calcium Lvl) 8.5 8.5-10.5 [place] 388371-08-11 08:17:00 Test Item Value Reference Range Interpretation Comments eGFR (test code = eGFR) 10 [place] 388371-08-11 08:17:00 Test Item Value Reference Range Interpretation Comments Phosphorus (test code = Phosphorus) 3.0 2.5-4.5 [facility]2021-08-11 08:17:00 Test Item Value Reference Range Interpretation Comments Magnesium Lvl (test code = Magnesium 2.4 1.8-2.4 Lvl) [facility]anoWiimdusAWBFMSQYLJ2788-43-64 08:17:00 Test Item Value Reference Range Interpretation Comments WBC (test code = WBC) 2.3 3.7-10.4 [facility]anoHvnbaoqFRDBGRUHNK8685-93-65 08:17:00 Test Item Value Reference Range Interpretation Comments RBC (test code = RBC) 2.65 4.20-5.40 [place] 876111-08-11 08:17:00 Test Item Value Reference Range Interpretation Comments Hgb (test code = Hgb) 7.9 12.0-16.0 [place] 876111-08-11 08:17:00 Test Item Value Reference Range Interpretation Comments Hct (test code = Hct) 24.0 36.0-48.0 [place] 876111-08-11 08:17:00 Test Item Value Reference Range Interpretation Comments MCV (test code = MCV) 90.6 80.0-98.0 [place] 876111-08-11 08:17:00 Test Item Value Reference Range Interpretation Comments MCH (test code = MCH) 29.7 pg 27.0-31.0 [facility]anoYqrilqtNYWCAEMCSQ9468-78-82 08:17:00 Test Item Value Reference Range Interpretation Comments MCHC (test code = MCHC) 32.7 32.0-36.0 [facility]anoUefxwsgIBDXOFXJIF6656-45-72 08:17:00 Test Item Value Reference Range Interpretation Comments RDW (test code = RDW) 19.1 11.5-14.5 [place] 876111-08-11 08:17:00 Test Item Value Reference Range Interpretation Comments Platelet (test code = Platelet) 71 133-450 [facility]anoNrcmarbPZIGHZLWTM9118-54-96 08:17:00 Test Item Value Reference Range Interpretation Comments MPV (test code = MPV) 9.9 7.4-10.4 [place] 876111-08-11 08:17:00 Test Item Value Reference Range Interpretation Comments Segs (test code = Segs) 56.1 45.0-75.0 [place] 876111-08-11 08:17:00 Test Item Value Reference Range Interpretation Comments Lymphocytes (test code = Lymphocytes) 28.9 20.0-40.0 [place] 876111-08-11 08:17:00 Test Item Value Reference Range Interpretation Comments Monocytes (test code = Monocytes) 8.1 2.0-12.0 [place] 876111-08-11 08:17:00 Test Item Value Reference Range Interpretation Comments Eosinophils (test code = 5.9 See_Comment [A utomated message] The Eosinophils) system which ge nerated this result tra nsmitted reference range : <=4.0. The reference r leo was not used to int erpret this result as normal/abnormal . [place] 876111-08-11 08:17:00 Test Item Value Reference Range Interpretation Comments Basophils (test code = 1.0 See_Comment [Aut omated message] The Basophils) system which ge nerated this result tra nsmitted reference range : <=1.0. The reference r leo was not used to int erpret this result as normal/abnormal . [facility]anoTizvscuYSCGVYGILB7929-89-74 08:17:00 Test Item Value Reference Range Interpretation Comments Neutrophils # (test code = Neutrophils 1.3 1.5-8.1 #) [place] 876111-08-11 08:17:00 Test Item Value Reference Range Interpretation Comments Lymphocytes # (test code = Lymphocytes 0.7 1.0-5.5 #) [place] 876111-08-11 08:17:00 Test Item Value Reference Range Interpretation Comments Monocytes # (test code 0.2 See_Comment [Aut omated message] The = Monocytes #) system which generated this result tra nsmitted reference range : <=0.8. The reference r leo was not used to int erpret this result as normal/abnormal . [facility]anoNeglzprMIEOMFDPSR1225-62-92 08:17:00 Test Item Value Reference Range Interpretation Comments Eosinophils # (test code 0.1 See_Comment [A utomated message] The = Eosinophils #) system whic h generated this result tra nsmitted reference range : <=0.5. The reference r leo was not used to int erpret this result as normal/abnormal . [facility]2021-08-11 08:17:00 Test Item Value Reference Range Interpretation Comments Glucose Lvl (test code = Glucose Lvl) 94 70-99 [place] 388371-08-11 08:17:00 Test Item Value Reference Range Interpretation Comments BUN (test code = BUN) 27 7-22 [place] 388371-08-11 08:17:00 Test Item Value Reference Range Interpretation Comments Creatinine Lvl (test code = Creatinine 4.95 0.50-1.40 Lvl) [place] 388371-08-11 08:17:00 Test Item Value Reference Range Interpretation Comments Sodium Lvl (test code = Sodium Lvl) 136 135-145 [place] 388371-08-11 08:17:00 Test Item Value Reference Range Interpretation Comments Potassium Lvl (test code = Potassium 3.9 3.5-5.1 Lvl) [facility]2021-08-11 08:17:00 Test Item Value Reference Range Interpretation Comments Chloride Lvl (test code = Chloride Lvl) 103 95-109 [place] 388371-08-11 08:17:00 Test Item Value Reference Range Interpretation Comments CO2 (test code = CO2) 30 24-32 [place] 388371-08-11 08:17:00 Test Item Value Reference Range Interpretation Comments AGAP (test code = AGAP) 6.9 10.0-20.0 [facility]2021-08-11 08:17:00 Test Item Value Reference Range Interpretation Comments Calcium Lvl (test code = Calcium Lvl) 8.5 8.5-10.5 [facility]2021-08-11 08:17:00 Test Item Value Reference Range Interpretation Comments eGFR (test code = eGFR) 10 [place] 388371-08-11 08:17:00 Test Item Value Reference Range Interpretation Comments Phosphorus (test code = Phosphorus) 3.0 2.5-4.5 [place] 388371-08-11 08:17:00 Test Item Value Reference Range Interpretation Comments Magnesium Lvl (test code = Magnesium 2.4 1.8-2.4 Lvl) [facility] 08:17:00 Test Item Value Reference Range Interpretation Comments WBC (test code = WBC) 2.3 3.7-10.4 [facility]anoTtvhzmpHESQVQYCNC0434-50-11 08:17:00 Test Item Value Reference Range Interpretation Comments RBC (test code = RBC) 2.65 4.20-5.40 [facility]anoKurvpsnDSKFUETHZE4951-79-64 08:17:00 Test Item Value Reference Range Interpretation Comments Hgb (test code = Hgb) 7.9 12.0-16.0 [facility]anoXtfjhneZMTONGMBBM5852-20-04 08:17:00 Test Item Value Reference Range Interpretation Comments Hct (test code = Hct) 24.0 36.0-48.0 [facility]anoHlqiumgMKHXUGBLFQ0080-64-18 08:17:00 Test Item Value Reference Range Interpretation Comments MCV (test code = MCV) 90.6 80.0-98.0 [facility]anoZeutjhhDVTTWJHDBJ8192-08-81 08:17:00 Test Item Value Reference Range Interpretation Comments MCH (test code = MCH) 29.7 pg 27.0-31.0 [facility]anoLqnmuduIIHZQWXPVW0609-32-65 08:17:00 Test Item Value Reference Range Interpretation Comments MCHC (test code = MCHC) 32.7 32.0-36.0 [facility]anoWvjglamCGMAGHGMZR4084-87-29 08:17:00 Test Item Value Reference Range Interpretation Comments RDW (test code = RDW) 19.1 11.5-14.5 [facility]anoOcttjkgGFDRYWZCRW3373-92-17 08:17:00 Test Item Value Reference Range Interpretation Comments Platelet (test code = Platelet) 71 133-450 [facility]anoBxiqiqvPCDBSKXQZO0740-84-49 08:17:00 Test Item Value Reference Range Interpretation Comments MPV (test code = MPV) 9.9 7.4-10.4 [facility]anoIkrfdurJJMORVCVWH0933-33-97 08:17:00 Test Item Value Reference Range Interpretation Comments Segs (test code = Segs) 56.1 45.0-75.0 [facility]anoDvgfhbqJZSKIRBKZZ9710-25-90 08:17:00 Test Item Value Reference Range Interpretation Comments Lymphocytes (test code = Lymphocytes) 28.9 20.0-40.0 [facility]anoQhmlgvnJBVFYNOTDT9766-39-00 08:17:00 Test Item Value Reference Range Interpretation Comments Monocytes (test code = Monocytes) 8.1 2.0-12.0 [place] 876111-08-11 08:17:00 Test Item Value Reference Range Interpretation Comments Eosinophils (test code = 5.9 See_Comment [A utomated message] The Eosinophils) system which ge nerated this result tra nsmitted reference range : <=4.0. The reference r leo was not used to int erpret this result as normal/abnormal . [facility]anoKkzqjmsPNJBGGZDGZ6141-57-18 08:17:00 Test Item Value Reference Range Interpretation Comments Basophils (test code = 1.0 See_Comment [Aut omated message] The Basophils) system which ge nerated this result tra nsmitted reference range : <=1.0. The reference r leo was not used to int erpret this result as normal/abnormal . [facility]anoDxrauobOJPORZYNKX1268-66-01 08:17:00 Test Item Value Reference Range Interpretation Comments Neutrophils # (test code = Neutrophils 1.3 1.5-8.1 #) [place] 876111-08-11 08:17:00 Test Item Value Reference Range Interpretation Comments Lymphocytes # (test code = Lymphocytes 0.7 1.0-5.5 #) [facility]anoPyldfulZUUUZJQJKR4267-24-60 08:17:00 Test Item Value Reference Range Interpretation Comments Monocytes # (test code 0.2 See_Comment [Aut omated message] The = Monocytes #) system which generated this result tra nsmitted reference range : <=0.8. The reference r leo was not used to int erpret this result as normal/abnormal . [facility]anoRnbyvlvVODEYDPJCU6535-09-54 08:17:00 Test Item Value Reference Range Interpretation Comments Eosinophils # (test code 0.1 See_Comment [A utomated message] The = Eosinophils #) system whic h generated this result tra nsmitted reference range : <=0.5. The reference r leo was not used to int erpret this result as normal/abnormal . [facility] ZTESE9494-68-50 08:17:00 Test Item Value Reference Range Interpretation Comments Glucose Lvl (test code = Glucose Lvl) 94 70-99 [facility] RWFBY0213-77-44 08:17:00 Test Item Value Reference Range Interpretation Comments BUN (test code = BUN) 27 7-22 [place] 388371-08-11 08:17:00 Test Item Value Reference Range Interpretation Comments Creatinine Lvl (test code = Creatinine 4.95 0.50-1.40 Lvl) [place] 388371-08-11 08:17:00 Test Item Value Reference Range Interpretation Comments Sodium Lvl (test code = Sodium Lvl) 136 135-145 [place] 388371-08-11 08:17:00 Test Item Value Reference Range Interpretation Comments Potassium Lvl (test code = Potassium 3.9 3.5-5.1 Lvl) [place] 388371-08-11 08:17:00 Test Item Value Reference Range Interpretation Comments Chloride Lvl (test code = Chloride Lvl) 103 95-109 [place] 388371-08-11 08:17:00 Test Item Value Reference Range Interpretation Comments CO2 (test code = CO2) 30 24-32 [place] 388371-08-11 08:17:00 Test Item Value Reference Range Interpretation Comments AGAP (test code = AGAP) 6.9 10.0-20.0 [place] 388371-08-11 08:17:00 Test Item Value Reference Range Interpretation Comments Calcium Lvl (test code = Calcium Lvl) 8.5 8.5-10.5 [place] 388371-08-11 08:17:00 Test Item Value Reference Range Interpretation Comments eGFR (test code = eGFR) 10 [place] 388371-08-11 08:17:00 Test Item Value Reference Range Interpretation Comments Phosphorus (test code = Phosphorus) 3.0 2.5-4.5 [place] 388371-08-11 08:17:00 Test Item Value Reference Range Interpretation Comments Magnesium Lvl (test code = Magnesium 2.4 1.8-2.4 Lvl) [place] 876111-08-11 08:17:00 Test Item Value Reference Range Interpretation Comments WBC (test code = WBC) 2.3 3.7-10.4 [place] 876111-08-11 08:17:00 Test Item Value Reference Range Interpretation Comments RBC (test code = RBC) 2.65 4.20-5.40 [place] [address]-08-11 08:17:00 Test Item Value Reference Range Interpretation Comments Hgb (test code = Hgb) 7.9 12.0-16.0 [facility]anoScxtnxnPPUUADQEBI6164-98-95 08:17:00 Test Item Value Reference Range Interpretation Comments Hct (test code = Hct) 24.0 36.0-48.0 [facility]anoVywikigUGSSJCWFGB3650-75-79 08:17:00 Test Item Value Reference Range Interpretation Comments MCV (test code = MCV) 90.6 80.0-98.0 [facility]anoZwchpnzCEFFWTLVLC8506-36-43 08:17:00 Test Item Value Reference Range Interpretation Comments MCH (test code = MCH) 29.7 pg 27.0-31.0 [facility]anoVzxjibcOQGLUWVQAP9561-99-85 08:17:00 Test Item Value Reference Range Interpretation Comments MCHC (test code = MCHC) 32.7 32.0-36.0 [facility]anoAcclgnpWUXJPCYCCT3658-63-41 08:17:00 Test Item Value Reference Range Interpretation Comments RDW (test code = RDW) 19.1 11.5-14.5 [facility]anoTrfwqveUAECWKAOLS2498-47-92 08:17:00 Test Item Value Reference Range Interpretation Comments Platelet (test code = Platelet) 71 133-450 [facility]anoOeotjbiYCCUGYVPFH4278-03-39 08:17:00 Test Item Value Reference Range Interpretation Comments MPV (test code = MPV) 9.9 7.4-10.4 [facility]anoIopzhutCZLMPYBUYM7226-90-19 08:17:00 Test Item Value Reference Range Interpretation Comments Segs (test code = Segs) 56.1 45.0-75.0 [facility]anoRpimwxnWILEVJLGWU1388-29-76 08:17:00 Test Item Value Reference Range Interpretation Comments Lymphocytes (test code = Lymphocytes) 28.9 20.0-40.0 [place] 876111-08-11 08:17:00 Test Item Value Reference Range Interpretation Comments Monocytes (test code = Monocytes) 8.1 2.0-12.0 [place] 876111-08-11 08:17:00 Test Item Value Reference Range Interpretation Comments Eosinophils (test code = 5.9 See_Comment [A utomated message] The Eosinophils) system which ge nerated this result tra nsmitted reference range : <=4.0. The reference r leo was not used to int erpret this result as normal/abnormal . [place] 876111-08-11 08:17:00 Test Item Value Reference Range Interpretation Comments Basophils (test code = 1.0 See_Comment [Aut omated message] The Basophils) system which ge nerated this result tra nsmitted reference range : <=1.0. The reference r leo was not used to int erpret this result as normal/abnormal . [place] 876111-08-11 08:17:00 Test Item Value Reference Range Interpretation Comments Neutrophils # (test code = Neutrophils 1.3 1.5-8.1 #) [place] 876111-08-11 08:17:00 Test Item Value Reference Range Interpretation Comments Lymphocytes # (test code = Lymphocytes 0.7 1.0-5.5 #) [place] 876111-08-11 08:17:00 Test Item Value Reference Range Interpretation Comments Monocytes # (test code 0.2 See_Comment [Aut omated message] The = Monocytes #) system which generated this result tra nsmitted reference range : <=0.8. The reference r leo was not used to int erpret this result as normal/abnormal . [place] 876111-08-11 08:17:00 Test Item Value Reference Range Interpretation Comments Eosinophils # (test code 0.1 See_Comment [A utomated message] The = Eosinophils #) system whic h generated this result tra nsmitted reference range : <=0.5. The reference r leo was not used to int erpret this result as normal/abnormal . [id number]:00 Test Item Value Reference Range Interpretation Comments Glucose Lvl (test code = Glucose Lvl) 94 70-99 [facility] GGAGK4058-00-26 08:17:00 Test Item Value Reference Range Interpretation Comments BUN (test code = BUN) 27 7-22 [facility] YHNHD5507-64-92 08:17:00 Test Item Value Reference Range Interpretation Comments Creatinine Lvl (test code = Creatinine 4.95 0.50-1.40 Lvl) [place] 388371-08-11 08:17:00 Test Item Value Reference Range Interpretation Comments Sodium Lvl (test code = Sodium Lvl) 136 135-145 [facility] [id number] 08:17:00 Test Item Value Reference Range Interpretation Comments Potassium Lvl (test code = Potassium 3.9 3.5-5.1 Lvl) [place] 388371-08-11 08:17:00 Test Item Value Reference Range Interpretation Comments Chloride Lvl (test code = Chloride Lvl) 103 95-109 [place] [address]-08-11 08:17:00 Test Item Value Reference Range Interpretation Comments CO2 (test code = CO2) 30 24-32 [place] 388371-08-11 08:17:00 Test Item Value Reference Range Interpretation Comments AGAP (test code = AGAP) 6.9 10.0-20.0 [place] 388371-08-11 08:17:00 Test Item Value Reference Range Interpretation Comments Calcium Lvl (test code = Calcium Lvl) 8.5 8.5-10.5 [place] 388371-08-11 08:17:00 Test Item Value Reference Range Interpretation Comments eGFR (test code = eGFR) 10 [place] 388371-08-11 08:17:00 Test Item Value Reference Range Interpretation Comments Phosphorus (test code = Phosphorus) 3.0 2.5-4.5 [place] 388371-08-11 08:17:00 Test Item Value Reference Range Interpretation Comments Magnesium Lvl (test code = Magnesium 2.4 1.8-2.4 Lvl) [place] 876111-08-11 08:17:00 Test Item Value Reference Range Interpretation Comments WBC (test code = WBC) 2.3 3.7-10.4 [place] [address]-08-11 08:17:00 Test Item Value Reference Range Interpretation Comments RBC (test code = RBC) 2.65 4.20-5.40 [place] [address]-08-11 08:17:00 Test Item Value Reference Range Interpretation Comments Hgb (test code = Hgb) 7.9 12.0-16.0 [place] [address]-08-11 08:17:00 Test Item Value Reference Range Interpretation Comments Hct (test code = Hct) 24.0 36.0-48.0 [place] [address]-08-11 08:17:00 Test Item Value Reference Range Interpretation Comments MCV (test code = MCV) 90.6 80.0-98.0 [facility]anoNpvjjwgQJYZBFGIQD2781-98-30 08:17:00 Test Item Value Reference Range Interpretation Comments MCH (test code = MCH) 29.7 pg 27.0-31.0 [facility]anoNltudbaFKMNIQJGAZ6915-94-53 08:17:00 Test Item Value Reference Range Interpretation Comments MCHC (test code = MCHC) 32.7 32.0-36.0 [facility]anoPfgybudCCVDIOYAYV8659-38-24 08:17:00 Test Item Value Reference Range Interpretation Comments RDW (test code = RDW) 19.1 11.5-14.5 [place] 876111-08-11 08:17:00 Test Item Value Reference Range Interpretation Comments Platelet (test code = Platelet) 71 133-450 [facility]anoOkeijbyKWZNRFQRQU6926-13-32 08:17:00 Test Item Value Reference Range Interpretation Comments MPV (test code = MPV) 9.9 7.4-10.4 [facility]anoMwkditcCBDSJJQCIW7107-78-33 08:17:00 Test Item Value Reference Range Interpretation Comments Segs (test code = Segs) 56.1 45.0-75.0 [place] 876111-08-11 08:17:00 Test Item Value Reference Range Interpretation Comments Lymphocytes (test code = Lymphocytes) 28.9 20.0-40.0 [facility]anoYphilcoQFRWDHPFZL1320-89-02 08:17:00 Test Item Value Reference Range Interpretation Comments Monocytes (test code = Monocytes) 8.1 2.0-12.0 [facility]anoTkybknhSFSZQQMJXF9721-39-00 08:17:00 Test Item Value Reference Range Interpretation Comments Eosinophils (test code = 5.9 See_Comment [A utomated message] The Eosinophils) system which ge nerated this result tra nsmitted reference range : <=4.0. The reference r leo was not used to int erpret this result as normal/abnormal . [facility]anoXzqsglcPKIDTQWYON1079-44-65 08:17:00 Test Item Value Reference Range Interpretation Comments Basophils (test code = 1.0 See_Comment [Aut omated message] The Basophils) system which ge nerated this result tra nsmitted reference range : <=1.0. The reference r leo was not used to int erpret this result as normal/abnormal . [facility]anoAhnkpwrFVBGIDVEZG8486-60-42 08:17:00 Test Item Value Reference Range Interpretation Comments Neutrophils # (test code = Neutrophils 1.3 1.5-8.1 #) [place] 876111-08-11 08:17:00 Test Item Value Reference Range Interpretation Comments Lymphocytes # (test code = Lymphocytes 0.7 1.0-5.5 #) [facility]anoNotvmtgAOQOSBGTUC5151-86-59 08:17:00 Test Item Value Reference Range Interpretation Comments Monocytes # (test code 0.2 See_Comment [Aut omated message] The = Monocytes #) system which generated this result tra nsmitted reference range : <=0.8. The reference r leo was not used to int erpret this result as normal/abnormal . [place] 876111-08-11 08:17:00 Test Item Value Reference Range Interpretation Comments Eosinophils # (test code 0.1 See_Comment [A utomated message] The = Eosinophils #) system whic h generated this result tra nsmitted reference range : <=0.5. The reference r leo was not used to int erpret this result as normal/abnormal . [facility]2021-08-10 09:30:00 Test Item Value Reference Range Interpretation Comments Glucose Lvl (test code = Glucose Lvl) 61 70-99 [place] 388371-08-10 09:30:00 Test Item Value Reference Range Interpretation Comments BUN (test code = BUN) 13 7-22 [place] 388371-08-10 09:30:00 Test Item Value Reference Range Interpretation Comments Creatinine Lvl (test code = Creatinine 3.71 0.50-1.40 Lvl) [place] 388371-08-10 09:30:00 Test Item Value Reference Range Interpretation Comments Sodium Lvl (test code = Sodium Lvl) 136 135-145 [place] 388371-08-10 09:30:00 Test Item Value Reference Range Interpretation Comments Potassium Lvl (test code = Potassium 4.3 3.5-5.1 Lvl) [place] 388371-08-10 09:30:00 Test Item Value Reference Range Interpretation Comments Chloride Lvl (test code = Chloride Lvl) 103 95-109 [place] 388371-08-10 09:30:00 Test Item Value Reference Range Interpretation Comments CO2 (test code = CO2) 27 24-32 [place] 388371-08-10 09:30:00 Test Item Value Reference Range Interpretation Comments Calcium Lvl (test code = Calcium Lvl) 7.9 8.5-10.5 [place] 388371-08-10 09:30:00 Test Item Value Reference Range Interpretation Comments AGAP (test code = AGAP) 10.3 10.0-20.0 [place] 388371-08-10 09:30:00 Test Item Value Reference Range Interpretation Comments eGFR (test code = eGFR) 15 [place] 388371-08-10 09:30:00 Test Item Value Reference Range Interpretation Comments Magnesium Lvl (test code = Magnesium 2.3 1.8-2.4 Lvl) [place] [address]-08-10 09:30:00 Test Item Value Reference Range Interpretation Comments Phosphorus (test code = Phosphorus) 3.1 2.5-4.5 [place] 876111-08-10 09:30:00 Test Item Value Reference Range Interpretation Comments Segs (test code = Segs) 61.5 45.0-75.0 [place] 876111-08-10 09:30:00 Test Item Value Reference Range Interpretation Comments Lymphocytes (test code = Lymphocytes) 24.6 20.0-40.0 [place] 876111-08-10 09:30:00 Test Item Value Reference Range Interpretation Comments Monocytes (test code = Monocytes) 7.4 2.0-12.0 [place] 876111-08-10 09:30:00 Test Item Value Reference Range Interpretation Comments Eosinophils (test code = 5.5 See_Comment [A utomated message] The Eosinophils) system which ge nerated this result tra nsmitted reference range : <=4.0. The reference r leo was not used to int erpret this result as normal/abnormal . [place] 876111-08-10 09:30:00 Test Item Value Reference Range Interpretation Comments Basophils (test code = 1.0 See_Comment [Aut omated message] The Basophils) system which ge nerated this result tra nsmitted reference range : <=1.0. The reference r leo was not used to int erpret this result as normal/abnormal . [place] [address]-08-10 09:30:00 Test Item Value Reference Range Interpretation Comments Neutrophils # (test code = Neutrophils 1.6 1.5-8.1 #) [place] 876111-08-10 09:30:00 Test Item Value Reference Range Interpretation Comments Lymphocytes # (test code = Lymphocytes 0.6 1.0-5.5 #) [place] 876111-08-10 09:30:00 Test Item Value Reference Range Interpretation Comments Monocytes # (test code 0.2 See_Comment [Aut omated message] The = Monocytes #) system which generated this result tra nsmitted reference range : <=0.8. The reference r leo was not used to int erpret this result as normal/abnormal . [place] [address]-08-10 09:30:00 Test Item Value Reference Range Interpretation Comments Eosinophils # (test code 0.1 See_Comment [A utomated message] The = Eosinophils #) system whic h generated this result tra nsmitted reference range : <=0.5. The reference r leo was not used to int erpret this result as normal/abnormal . [place] 876111-08-10 09:30:00 Test Item Value Reference Range Interpretation [...] studies, if clinically indicated, are recommended. CPT: 09205 [place] 876111-08-10 09:30:00 Test Item Value Reference Range Interpretation Comments WBC (test code = WBC) 2.5 3.7-10.4 [place] 876111-08-10 09:30:00 Test Item Value Reference Range Interpretation Comments RBC (test code = RBC) 2.68 4.20-5.40 [place] [address]-08-10 09:30:00 Test Item Value Reference Range Interpretation Comments Hgb (test code = Hgb) 8.2 12.0-16.0 [place] 876111-08-10 09:30:00 Test Item Value Reference Range Interpretation Comments Hct (test code = Hct) 24.3 36.0-48.0 [place] 876111-08-10 09:30:00 Test Item Value Reference Range Interpretation Comments MCV (test code = MCV) 90.9 80.0-98.0 [place] 876111-08-10 09:30:00 Test Item Value Reference Range Interpretation Comments MCH (test code = MCH) 30.5 pg 27.0-31.0 [facility]LF[facility]EXM[facility]OD9417[facility]98[facility]67 09:30:00 Test Item Value Reference Range Interpretation Comments MCHC (test code = MCHC) 33.6 32.0-36.0 [facility]anoEikapyhIPHMEAWFEZ0592-95-79 09:30:00 Test Item Value Reference Range Interpretation Comments RDW (test code = RDW) 19.4 11.5-14.5 [place] 876111-08-10 09:30:00 Test Item Value Reference Range Interpretation Comments Platelet (test code = Platelet) 70 133-450 [place] 876111-08-10 09:30:00 Test Item Value Reference Range Interpretation Comments MPV (test code = MPV) 10.7 7.4-10.4 [facility]2021-08-10 09:30:00 Test Item Value Reference Range Interpretation Comments Glucose Lvl (test code = Glucose Lvl) 61 70-99 [place] 388371-08-10 09:30:00 Test Item Value Reference Range Interpretation Comments BUN (test code = BUN) 13 7-22 [place] 388371-08-10 09:30:00 Test Item Value Reference Range Interpretation Comments Creatinine Lvl (test code = Creatinine 3.71 0.50-1.40 Lvl) [place] 388371-08-10 09:30:00 Test Item Value Reference Range Interpretation Comments Sodium Lvl (test code = Sodium Lvl) 136 135-145 [place] 388371-08-10 09:30:00 Test Item Value Reference Range Interpretation Comments Potassium Lvl (test code = Potassium 4.3 3.5-5.1 Lvl) [place] 388371-08-10 09:30:00 Test Item Value Reference Range Interpretation Comments Chloride Lvl (test code = Chloride Lvl) 103 95-109 [place] 388371-08-10 09:30:00 Test Item Value Reference Range Interpretation Comments CO2 (test code = CO2) 27 24-32 [place] 388371-08-10 09:30:00 Test Item Value Reference Range Interpretation Comments Calcium Lvl (test code = Calcium Lvl) 7.9 8.5-10.5 [place] 388371-08-10 09:30:00 Test Item Value Reference Range Interpretation Comments AGAP (test code = AGAP) 10.3 10.0-20.0 [place] 388371-08-10 09:30:00 Test Item Value Reference Range Interpretation Comments eGFR (test code = eGFR) 15 [place] 388371-08-10 09:30:00 Test Item Value Reference Range Interpretation Comments Magnesium Lvl (test code = Magnesium 2.3 1.8-2.4 Lvl) [place] 388371-08-10 09:30:00 Test Item Value Reference Range Interpretation Comments Phosphorus (test code = Phosphorus) 3.1 2.5-4.5 [place] [address]-08-10 09:30:00 Test Item Value Reference Range Interpretation Comments Segs (test code = Segs) 61.5 45.0-75.0 [place] [address]-08-10 09:30:00 Test Item Value Reference Range Interpretation Comments Lymphocytes (test code = Lymphocytes) 24.6 20.0-40.0 [place] [address]-08-10 09:30:00 Test Item Value Reference Range Interpretation Comments Monocytes (test code = Monocytes) 7.4 2.0-12.0 [place] [address]-08-10 09:30:00 Test Item Value Reference Range Interpretation Comments Eosinophils (test code = 5.5 See_Comment [A utomated message] The Eosinophils) system which ge nerated this result tra nsmitted reference range : <=4.0. The reference r leo was not used to int erpret this result as normal/abnormal . [place] 876111-08-10 09:30:00 Test Item Value Reference Range Interpretation Comments Basophils (test code = 1.0 See_Comment [Aut omated message] The Basophils) system which ge nerated this result tra nsmitted reference range : <=1.0. The reference r leo was not used to int erpret this result as normal/abnormal . [facility]anoRvgnkixONJGYYFSTZ3818-44-00 09:30:00 Test Item Value Reference Range Interpretation Comments Neutrophils # (test code = Neutrophils 1.6 1.5-8.1 #) [facility]anoDuobkuzHHTPZXJYKG1681-67-27 09:30:00 Test Item Value Reference Range Interpretation Comments Lymphocytes # (test code = Lymphocytes 0.6 1.0-5.5 #) [facility]anoLzzcoifQTBWIGEIJV7007-55-04 09:30:00 Test Item Value Reference Range Interpretation Comments Monocytes # (test code 0.2 See_Comment [Aut omated message] The = Monocytes #) system which generated this result tra nsmitted reference range : <=0.8. The reference r leo was not used to int erpret this result as normal/abnormal . [facility]anoPordhnhRXKKZRWLYU6116-51-71 09:30:00 Test Item Value Reference Range Interpretation Comments Eosinophils # (test code 0.1 See_Comment [A utomated message] The = Eosinophils #) system whic h generated this result tra nsmitted reference range : <=0.5. The reference r leo was not used to int erpret this result as normal/abnormal . [facility]anoDhvanllSEHYSFCWVM9703-91-40 09:30:00 Test Item Value Reference Range Interpretation [...] studies, if clinically indicated, are recommended. CPT: 09989 [place] 876111-08-10 09:30:00 Test Item Value Reference Range Interpretation Comments WBC (test code = WBC) 2.5 3.7-10.4 [facility]anoDzhjdqwPJZDQOQAMR4360-06-75 09:30:00 Test Item Value Reference Range Interpretation Comments RBC (test code = RBC) 2.68 4.20-5.40 [place] 876111-08-10 09:30:00 Test Item Value Reference Range Interpretation Comments Hgb (test code = Hgb) 8.2 12.0-16.0 [place] 876111-08-10 09:30:00 Test Item Value Reference Range Interpretation Comments Hct (test code = Hct) 24.3 36.0-48.0 [place] 876111-08-10 09:30:00 Test Item Value Reference Range Interpretation Comments MCV (test code = MCV) 90.9 80.0-98.0 [place] 876111-08-10 09:30:00 Test Item Value Reference Range Interpretation Comments MCH (test code = MCH) 30.5 pg 27.0-31.0 [place] 876111-08-10 09:30:00 Test Item Value Reference Range Interpretation Comments MCHC (test code = MCHC) 33.6 32.0-36.0 [facility]anoPdkjrhkKUQWXDBQAY6045-76-29 09:30:00 Test Item Value Reference Range Interpretation Comments RDW (test code = RDW) 19.4 11.5-14.5 [facility]anoFoapnioOXUIEEDAGP2353-33-98 09:30:00 Test Item Value Reference Range Interpretation Comments Platelet (test code = Platelet) 70 133-450 [facility]anoYylbexnQBOWZOZYBE9410-52-20 09:30:00 Test Item Value Reference Range Interpretation Comments MPV (test code = MPV) 10.7 7.4-10.4 [facility]2021-08-10 09:30:00 Test Item Value Reference Range Interpretation Comments Glucose Lvl (test code = Glucose Lvl) 61 70-99 [facility]2021-08-10 09:30:00 Test Item Value Reference Range Interpretation Comments BUN (test code = BUN) 13 7-22 [facility]2021-08-10 09:30:00 Test Item Value Reference Range Interpretation Comments Creatinine Lvl (test code = Creatinine 3.71 0.50-1.40 Lvl) [facility]2021-08-10 09:30:00 Test Item Value Reference Range Interpretation Comments Sodium Lvl (test code = Sodium Lvl) 136 135-145 [place] 388371-08-10 09:30:00 Test Item Value Reference Range Interpretation Comments Potassium Lvl (test code = Potassium 4.3 3.5-5.1 Lvl) [place] 388371-08-10 09:30:00 Test Item Value Reference Range Interpretation Comments Chloride Lvl (test code = Chloride Lvl) 103 95-109 [place] 388371-08-10 09:30:00 Test Item Value Reference Range Interpretation Comments CO2 (test code = CO2) 27 24-32 [place] 388371-08-10 09:30:00 Test Item Value Reference Range Interpretation Comments Calcium Lvl (test code = Calcium Lvl) 7.9 8.5-10.5 [place] [address]-08-10 09:30:00 Test Item Value Reference Range Interpretation Comments AGAP (test code = AGAP) 10.3 10.0-20.0 [place] 388371-08-10 09:30:00 Test Item Value Reference Range Interpretation Comments eGFR (test code = eGFR) 15 [place] 388371-08-10 09:30:00 Test Item Value Reference Range Interpretation Comments Magnesium Lvl (test code = Magnesium 2.3 1.8-2.4 Lvl) [place] 388371-08-10 09:30:00 Test Item Value Reference Range Interpretation Comments Phosphorus (test code = Phosphorus) 3.1 2.5-4.5 [place] 876111-08-10 09:30:00 Test Item Value Reference Range Interpretation Comments Segs (test code = Segs) 61.5 45.0-75.0 [place] 876111-08-10 09:30:00 Test Item Value Reference Range Interpretation Comments Lymphocytes (test code = Lymphocytes) 24.6 20.0-40.0 [place] [address]-08-10 09:30:00 Test Item Value Reference Range Interpretation Comments Monocytes (test code = Monocytes) 7.4 2.0-12.0 [place] [address]-08-10 09:30:00 Test Item Value Reference Range Interpretation Comments Eosinophils (test code = 5.5 See_Comment [A utomated message] The Eosinophils) system which ge nerated this result tra nsmitted reference range : <=4.0. The reference r leo was not used to int erpret this result as normal/abnormal . [facility]anoDlejaimMVBESHDAXE8911-60-22 09:30:00 Test Item Value Reference Range Interpretation Comments Basophils (test code = 1.0 See_Comment [Aut omated message] The Basophils) system which ge nerated this result tra nsmitted reference range : <=1.0. The reference r leo was not used to int erpret this result as normal/abnormal . [facility]anoFfyncfyLZIVGICHFF7280-58-78 09:30:00 Test Item Value Reference Range Interpretation Comments Neutrophils # (test code = Neutrophils 1.6 1.5-8.1 #) [facility]anoWtitlagMDXSLONGYT4113-02-18 09:30:00 Test Item Value Reference Range Interpretation Comments Lymphocytes # (test code = Lymphocytes 0.6 1.0-5.5 #) [facility]anoJtuasthWLCRLNMCHU4808-89-32 09:30:00 Test Item Value Reference Range Interpretation Comments Monocytes # (test code 0.2 See_Comment [Aut omated message] The = Monocytes #) system which generated this result tra nsmitted reference range : <=0.8. The reference r leo was not used to int erpret this result as normal/abnormal . [facility]anoAlmjsorSQRKFXZAPU3917-58-20 09:30:00 Test Item Value Reference Range Interpretation Comments Eosinophils # (test code 0.1 See_Comment [A utomated message] The = Eosinophils #) system whic h generated this result tra nsmitted reference range : <=0.5. The reference r leo was not used to int erpret this result as normal/abnormal . [facility] PlanoVwmqnpeYLIBMTFJMN4309-85-71 09:30:00 Test Item Value Reference Range Interpretation [...] studies, if clinically indicated, are recommended. CPT: 42712 [place] [address]-08-10 09:30:00 Test Item Value Reference Range Interpretation Comments WBC (test code = WBC) 2.5 3.7-10.4 [place] 876111-08-10 09:30:00 Test Item Value Reference Range Interpretation Comments RBC (test code = RBC) 2.68 4.20-5.40 [place] 876111-08-10 09:30:00 Test Item Value Reference Range Interpretation Comments Hgb (test code = Hgb) 8.2 12.0-16.0 [place] 876111-08-10 09:30:00 Test Item Value Reference Range Interpretation Comments Hct (test code = Hct) 24.3 36.0-48.0 [place] 876111-08-10 09:30:00 Test Item Value Reference Range Interpretation Comments MCV (test code = MCV) 90.9 80.0-98.0 [place] 876111-08-10 09:30:00 Test Item Value Reference Range Interpretation Comments MCH (test code = MCH) 30.5 pg 27.0-31.0 [place] 876111-08-10 09:30:00 Test Item Value Reference Range Interpretation Comments MCHC (test code = MCHC) 33.6 32.0-36.0 [place] 876111-08-10 09:30:00 Test Item Value Reference Range Interpretation Comments RDW (test code = RDW) 19.4 11.5-14.5 [place] 876111-08-10 09:30:00 Test Item Value Reference Range Interpretation Comments Platelet (test code = Platelet) 70 133-450 [facility]anoKlkjakdDLQMZKYMXF2786-90-50 09:30:00 Test Item Value Reference Range Interpretation Comments MPV (test code = MPV) 10.7 7.4-10.4 [place] 388371-08-10 09:30:00 Test Item Value Reference Range Interpretation Comments Glucose Lvl (test code = Glucose Lvl) 61 70-99 [place] 388371-08-10 09:30:00 Test Item Value Reference Range Interpretation Comments BUN (test code = BUN) 13 7-22 [place] 388371-08-10 09:30:00 Test Item Value Reference Range Interpretation Comments Creatinine Lvl (test code = Creatinine 3.71 0.50-1.40 Lvl) [place] 388371-08-10 09:30:00 Test Item Value Reference Range Interpretation Comments Sodium Lvl (test code = Sodium Lvl) 136 135-145 [place] 388371-08-10 09:30:00 Test Item Value Reference Range Interpretation Comments Potassium Lvl (test code = Potassium 4.3 3.5-5.1 Lvl) [place] 388371-08-10 09:30:00 Test Item Value Reference Range Interpretation Comments Chloride Lvl (test code = Chloride Lvl) 103 95-109 [place] 388371-08-10 09:30:00 Test Item Value Reference Range Interpretation Comments CO2 (test code = CO2) 27 24-32 [place] 388371-08-10 09:30:00 Test Item Value Reference Range Interpretation Comments Calcium Lvl (test code = Calcium Lvl) 7.9 8.5-10.5 [place] 388371-08-10 09:30:00 Test Item Value Reference Range Interpretation Comments AGAP (test code = AGAP) 10.3 10.0-20.0 [place] 388371-08-10 09:30:00 Test Item Value Reference Range Interpretation Comments eGFR (test code = eGFR) 15 [place] 388371-08-10 09:30:00 Test Item Value Reference Range Interpretation Comments Magnesium Lvl (test code = Magnesium 2.3 1.8-2.4 Lvl) [place] 388371-08-10 09:30:00 Test Item Value Reference Range Interpretation Comments Phosphorus (test code = Phosphorus) 3.1 2.5-4.5 [place] 876111-08-10 09:30:00 Test Item Value Reference Range Interpretation Comments Segs (test code = Segs) 61.5 45.0-75.0 [place] 876111-08-10 09:30:00 Test Item Value Reference Range Interpretation Comments Lymphocytes (test code = Lymphocytes) 24.6 20.0-40.0 [place] 876111-08-10 09:30:00 Test Item Value Reference Range Interpretation Comments Monocytes (test code = Monocytes) 7.4 2.0-12.0 [place] [address]-08-10 09:30:00 Test Item Value Reference Range Interpretation Comments Eosinophils (test code = 5.5 See_Comment [A utomated message] The Eosinophils) system which ge nerated this result tra nsmitted reference range : <=4.0. The reference r leo was not used to int erpret this result as normal/abnormal . [place] [address]-08-10 09:30:00 Test Item Value Reference Range Interpretation Comments Basophils (test code = 1.0 See_Comment [Aut omated message] The Basophils) system which ge nerated this result tra nsmitted reference range : <=1.0. The reference r leo was not used to int erpret this result as normal/abnormal . [address]08-10 09:30:00 Test Item Value Reference Range Interpretation Comments Neutrophils # (test code = Neutrophils 1.6 1.5-8.1 #) [address]08-10 09:30:00 Test Item Value Reference Range Interpretation Comments Lymphocytes # (test code = Lymphocytes 0.6 1.0-5.5 #) [address]08-10 09:30:00 Test Item Value Reference Range Interpretation Comments Monocytes # (test code 0.2 See_Comment [Aut omated message] The = Monocytes #) system which generated this result tra nsmitted reference range : <=0.8. The reference r leo was not used to int erpret this result as normal/abnormal . [place] [address]-08-10 09:30:00 Test Item Value Reference Range Interpretation Comments Eosinophils # (test code 0.1 See_Comment [A utomated message] The = Eosinophils #) system ic h generated this result tra nsmitted reference range : <=0.5. The reference r leo was not used to int erpret this result as normal/abnormal . [address]08-10 09:30:00 Test Item Value Reference Range [...] studies, if clinically indicated, are recommended. CPT: 69878 [facility]anoQuivyvxYTCYODBRUK9781-79-79 09:30:00 Test Item Value Reference Range Interpretation Comments WBC (test code = WBC) 2.5 3.7-10.4 [facility]anoKpvrnfgYGXMKYGQQD0071-32-96 09:30:00 Test Item Value Reference Range Interpretation Comments RBC (test code = RBC) 2.68 4.20-5.40 [place] 876111-08-10 09:30:00 Test Item Value Reference Range Interpretation Comments Hgb (test code = Hgb) 8.2 12.0-16.0 [facility]anoDhogcrlMRRZETFYBB5815-14-34 09:30:00 Test Item Value Reference Range Interpretation Comments Hct (test code = Hct) 24.3 36.0-48.0 [facility]anoQwboytsWTJJLQEXXH9749-65-48 09:30:00 Test Item Value Reference Range Interpretation Comments MCV (test code = MCV) 90.9 80.0-98.0 [facility]anoLflajezSSVDBENIQY4808-76-13 09:30:00 Test Item Value Reference Range Interpretation Comments MCH (test code = MCH) 30.5 pg 27.0-31.0 [facility]anoEdgpikyBITEVRVOUT5391-19-36 09:30:00 Test Item Value Reference Range Interpretation Comments MCHC (test code = MCHC) 33.6 32.0-36.0 [facility]anoDgnljbiMIYUBRACYO2181-02-91 09:30:00 Test Item Value Reference Range Interpretation Comments RDW (test code = RDW) 19.4 11.5-14.5 [place] 876111-08-10 09:30:00 Test Item Value Reference Range Interpretation Comments Platelet (test code = Platelet) 70 133-450 [facility]anoIhtjotkATGLSBTBQZ5663-50-81 09:30:00 Test Item Value Reference Range Interpretation Comments MPV (test code = MPV) 10.7 7.4-10.4 [facility]2021-08-10 09:30:00 Test Item Value Reference Range Interpretation Comments Glucose Lvl (test code = Glucose Lvl) 61 70-99 [place] 388371-08-10 09:30:00 Test Item Value Reference Range Interpretation Comments BUN (test code = BUN) 13 7-22 [place] 388371-08-10 09:30:00 Test Item Value Reference Range Interpretation Comments Creatinine Lvl (test code = Creatinine 3.71 0.50-1.40 Lvl) [place] 388371-08-10 09:30:00 Test Item Value Reference Range Interpretation Comments Sodium Lvl (test code = Sodium Lvl) 136 135-145 [place] 388371-08-10 09:30:00 Test Item Value Reference Range Interpretation Comments Potassium Lvl (test code = Potassium 4.3 3.5-5.1 Lvl) [place] 388371-08-10 09:30:00 Test Item Value Reference Range Interpretation Comments Chloride Lvl (test code = Chloride Lvl) 103 95-109 [place] 388371-08-10 09:30:00 Test Item Value Reference Range Interpretation Comments CO2 (test code = CO2) 27 24-32 [place] 388371-08-10 09:30:00 Test Item Value Reference Range Interpretation Comments Calcium Lvl (test code = Calcium Lvl) 7.9 8.5-10.5 [place] 388371-08-10 09:30:00 Test Item Value Reference Range Interpretation Comments AGAP (test code = AGAP) 10.3 10.0-20.0 [place] 388371-08-10 09:30:00 Test Item Value Reference Range Interpretation Comments eGFR (test code = eGFR) 15 [place] 388371-08-10 09:30:00 Test Item Value Reference Range Interpretation Comments Magnesium Lvl (test code = Magnesium 2.3 1.8-2.4 Lvl) [place] 388371-08-10 09:30:00 Test Item Value Reference Range Interpretation Comments Phosphorus (test code = Phosphorus) 3.1 2.5-4.5 [place] 876111-08-10 09:30:00 Test Item Value Reference Range Interpretation Comments Segs (test code = Segs) 61.5 45.0-75.0 [place] [address]-08-10 09:30:00 Test Item Value Reference Range Interpretation Comments Lymphocytes (test code = Lymphocytes) 24.6 20.0-40.0 [place] 876111-08-10 09:30:00 Test Item Value Reference Range Interpretation Comments Monocytes (test code = Monocytes) 7.4 2.0-12.0 [place] 876111-08-10 09:30:00 Test Item Value Reference Range Interpretation Comments Eosinophils (test code = 5.5 See_Comment [A utomated message] The Eosinophils) system which ge nerated this result tra nsmitted reference range : <=4.0. The reference r leo was not used to int erpret this result as normal/abnormal . [place] 876111-08-10 09:30:00 Test Item Value Reference Range Interpretation Comments Basophils (test code = 1.0 See_Comment [Aut omated message] The Basophils) system which ge nerated this result tra nsmitted reference range : <=1.0. The reference r leo was not used to int erpret this result as normal/abnormal . [facility]anoRortuttQTHTWYRJOF9845-30-53 09:30:00 Test Item Value Reference Range Interpretation Comments Neutrophils # (test code = Neutrophils 1.6 1.5-8.1 #) [facility] PlanoTexnbluESBQXCFKTH8384-01-69 09:30:00 Test Item Value Reference Range Interpretation Comments Lymphocytes # (test code = Lymphocytes 0.6 1.0-5.5 #) [facility]anoDvhdswxXEJKKWBLGG2447-91-43 09:30:00 Test Item Value Reference Range Interpretation Comments Monocytes # (test code 0.2 See_Comment [Aut omated message] The = Monocytes #) system which generated this result tra nsmitted reference range : <=0.8. The reference r leo was not used to int erpret this result as normal/abnormal . [place] 876111-08-10 09:30:00 Test Item Value Reference Range Interpretation Comments Eosinophils # (test code 0.1 See_Comment [A utomated message] The = Eosinophils #) system whic h generated this result tra nsmitted reference range : <=0.5. The reference r leo was not used to int erpret this result as normal/abnormal . [place] 876111-08-10 09:30:00 Test Item Value Reference Range Interpretation [...] studies, if clinically indicated, are recommended. CPT: 34253 [place] 876111-08-10 09:30:00 Test Item Value Reference Range Interpretation Comments WBC (test code = WBC) 2.5 3.7-10.4 [place] [address]-08-10 09:30:00 Test Item Value Reference Range Interpretation Comments RBC (test code = RBC) 2.68 4.20-5.40 [place] [address]-08-10 09:30:00 Test Item Value Reference Range Interpretation Comments Hgb (test code = Hgb) 8.2 12.0-16.0 [place] [address]-08-10 09:30:00 Test Item Value Reference Range Interpretation Comments Hct (test code = Hct) 24.3 36.0-48.0 [place] [address]-08-10 09:30:00 Test Item Value Reference Range Interpretation Comments MCV (test code = MCV) 90.9 80.0-98.0 [place] [address]-08-10 09:30:00 Test Item Value Reference Range Interpretation Comments MCH (test code = MCH) 30.5 pg 27.0-31.0 [place] 876111-08-10 09:30:00 Test Item Value Reference Range Interpretation Comments MCHC (test code = MCHC) 33.6 32.0-36.0 [place] [address]-08-10 09:30:00 Test Item Value Reference Range Interpretation Comments RDW (test code = RDW) 19.4 11.5-14.5 [place] [address]-08-10 09:30:00 Test Item Value Reference Range Interpretation Comments Platelet (test code = Platelet) 70 133-450 [place] [address]-08-10 09:30:00 Test Item Value Reference Range Interpretation Comments MPV (test code = MPV) 10.7 7.4-10.4 [place] 388371-08-09 05:10:00 Test Item Value Reference Range Interpretation Comments Glucose Lvl (test code = Glucose Lvl) 69 70-99 [place] 388371-08-09 05:10:00 Test Item Value Reference Range Interpretation Comments BUN (test code = BUN) 29 7-22 [place] 388371-08-09 05:10:00 Test Item Value Reference Range Interpretation Comments Creatinine Lvl (test code = Creatinine 5.14 0.50-1.40 Lvl) [place] 388371-08-09 05:10:00 Test Item Value Reference Range Interpretation Comments Sodium Lvl (test code = Sodium Lvl) 134 135-145 [place] 388371-08-09 05:10:00 Test Item Value Reference Range Interpretation Comments Potassium Lvl (test code = Potassium 5.1 3.5-5.1 Lvl) [place] 388371-08-09 05:10:00 Test Item Value Reference Range Interpretation Comments Chloride Lvl (test code = Chloride Lvl) 98 95-109 [place] 388371-08-09 05:10:00 Test Item Value Reference Range Interpretation Comments CO2 (test code = CO2) 29 24-32 [facility]2021-08-09 05:10:00 Test Item Value Reference Range Interpretation Comments Calcium Lvl (test code = Calcium Lvl) 7.6 8.5-10.5 [facility]2021-08-09 05:10:00 Test Item Value Reference Range Interpretation Comments AGAP (test code = AGAP) 12.1 10.0-20.0 [place] 388371-08-09 05:10:00 Test Item Value Reference Range Interpretation Comments eGFR (test code = eGFR) 10 [place] 388371-08-09 05:10:00 Test Item Value Reference Range Interpretation Comments Magnesium Lvl (test code = Magnesium 2.3 1.8-2.4 Lvl) [place] 388371-08-09 05:10:00 Test Item Value Reference Range Interpretation Comments Phosphorus (test code = Phosphorus) 5.0 2.5-4.5 [facility]ASKUJ7136[facility] 05:10:00 Test Item Value Reference Range Interpretation Comments WBC (test code = WBC) 2.7 3.7-10.4 [facility]SliroazDHUPOFBLJD2620-03-64 05:10:00 Test Item Value Reference Range Interpretation Comments RBC (test code = RBC) 2.80 4.20-5.40 [facility]anoAxtlommKIZFRGPCDV0767-07-57 05:10:00 Test Item Value Reference Range Interpretation Comments Hgb (test code = Hgb) 8.5 12.0-16.0 [facility]anoMltcikuMFHAUUDRWJ5016-00-20 05:10:00 Test Item Value Reference Range Interpretation Comments Hct (test code = Hct) 25.7 36.0-48.0 [facility]anoJynmgwxQOPHNIGBJE9125-79-15 05:10:00 Test Item Value Reference Range Interpretation Comments MCV (test code = MCV) 91.7 80.0-98.0 [facility]anoAzmasxtVGHEIFIWBK1050-18-03 05:10:00 Test Item Value Reference Range Interpretation Comments MCH (test code = MCH) 30.4 pg 27.0-31.0 [facility]anoMxgixbpGBQWSLYLHH4314-00-79 05:10:00 Test Item Value Reference Range Interpretation Comments MCHC (test code = MCHC) 33.1 32.0-36.0 [facility]anoPbsayoyCURNIZVLYR3017-58-20 05:10:00 Test Item Value Reference Range Interpretation Comments RDW (test code = RDW) 19.2 11.5-14.5 [facility]anoWjgiydgWBFGUSCMBW7391-02-49 05:10:00 Test Item Value Reference Range Interpretation Comments Platelet (test code = Platelet) 72 133-450 [facility]anoSewsdusRHKGZENWRG2294-13-69 05:10:00 Test Item Value Reference Range Interpretation Comments MPV (test code = MPV) 9.9 7.4-10.4 [facility]anoHhmtoloWCSHMFHQDC2698-46-22 05:10:00 Test Item Value Reference Range Interpretation Comments Segs (test code = Segs) 72.6 45.0-75.0 [facility]anoZjhqsljEVUHRQDTGE1538-47-56 05:10:00 Test Item Value Reference Range Interpretation Comments Lymphocytes (test code = Lymphocytes) 15.9 20.0-40.0 [facility]anoBormczcJWBKGMSXRZ7517-55-94 05:10:00 Test Item Value Reference Range Interpretation Comments Monocytes (test code = Monocytes) 7.3 2.0-12.0 [facility]anoRukwhlgUXAFUMMEVG5786-85-44 05:10:00 Test Item Value Reference Range Interpretation Comments Eosinophils (test code = 3.4 See_Comment [A utomated message] The Eosinophils) system which ge nerated this result tra nsmitted reference range : <=4.0. The reference r leo was not used to int erpret this result as normal/abnormal . [facility]anoSurjvzhOYJGRRMPER9841-12-35 05:10:00 Test Item Value Reference Range Interpretation Comments Basophils (test code = 0.8 See_Comment [Aut omated message] The Basophils) system which ge nerated this result tra nsmitted reference range : <=1.0. The reference r leo was not used to int erpret this result as normal/abnormal . [facility]anoKcpsdvzPCBUMNRSJB3061-58-52 05:10:00 Test Item Value Reference Range Interpretation Comments Neutrophils # (test code = Neutrophils 1.9 1.5-8.1 #) [facility]anoYeuxveuYPFQMXIRMC2769-71-91 05:10:00 Test Item Value Reference Range Interpretation Comments Lymphocytes # (test code = Lymphocytes 0.4 1.0-5.5 #) [facility]anoQzgsyyoCOFRGNTXCZ5744-05-34 05:10:00 Test Item Value Reference Range Interpretation Comments Monocytes # (test code 0.2 See_Comment [Aut omated message] The = Monocytes #) system which generated this result tra nsmitted reference range : <=0.8. The reference r leo was not used to int erpret this result as normal/abnormal . [facility]anoGumqwryJTRLSHTWIB8399-31-19 05:10:00 Test Item Value Reference Range Interpretation Comments Eosinophils # (test code 0.1 See_Comment [A utomated message] The = Eosinophils #) system whic h generated this result tra nsmitted reference range : <=0.5. The reference r leo was not used to int erpret this result as normal/abnormal . [facility] DVWOBOI1429-76-42 05:10:00 Test Item Value Reference Range Interpretation Comments Ca Ion WB (test code = Ca Ion WB) 1.10 1.05-1.25 [facility] CAFUDSO1663-13-45 05:10:00 Test Item Value Reference Range Interpretation Comments Ca Norm WB (test code = Ca Norm WB) 1.06 1.05-1.25 [place] 388371-08-09 05:10:00 Test Item Value Reference Range Interpretation Comments Glucose Lvl (test code = Glucose Lvl) 69 70-99 [place] 388371-08-09 05:10:00 Test Item Value Reference Range Interpretation Comments BUN (test code = BUN) 29 7-22 [facility]2021-08-09 05:10:00 Test Item Value Reference Range Interpretation Comments Creatinine Lvl (test code = Creatinine 5.14 0.50-1.40 Lvl) [place] 388371-08-09 05:10:00 Test Item Value Reference Range Interpretation Comments Sodium Lvl (test code = Sodium Lvl) 134 135-145 [place] 388371-08-09 05:10:00 Test Item Value Reference Range Interpretation Comments Potassium Lvl (test code = Potassium 5.1 3.5-5.1 Lvl) [place] 388371-08-09 05:10:00 Test Item Value Reference Range Interpretation Comments Chloride Lvl (test code = Chloride Lvl) 98 95-109 [place] 388371-08-09 05:10:00 Test Item Value Reference Range Interpretation Comments CO2 (test code = CO2) 29 24-32 [facility]2021-08-09 05:10:00 Test Item Value Reference Range Interpretation Comments Calcium Lvl (test code = Calcium Lvl) 7.6 8.5-10.5 [facility]2021-08-09 05:10:00 Test Item Value Reference Range Interpretation Comments AGAP (test code = AGAP) 12.1 10.0-20.0 [place] 388371-08-09 05:10:00 Test Item Value Reference Range Interpretation Comments eGFR (test code = eGFR) 10 [place] 388371-08-09 05:10:00 Test Item Value Reference Range Interpretation Comments Magnesium Lvl (test code = Magnesium 2.3 1.8-2.4 Lvl) [facility]2021-08-09 05:10:00 Test Item Value Reference Range Interpretation Comments Phosphorus (test code = Phosphorus) 5.0 2.5-4.5 [facility]KntaupfZQAABADWJF3430-36-35 05:10:00 Test Item Value Reference Range Interpretation Comments WBC (test code = WBC) 2.7 3.7-10.4 [facility]anoFxpyssqRINBDWGFBF2817-06-39 05:10:00 Test Item Value Reference Range Interpretation Comments RBC (test code = RBC) 2.80 4.20-5.40 [facility]anoDnrvpgnDGDFRDCMUI5362-10-10 05:10:00 Test Item Value Reference Range Interpretation Comments Hgb (test code = Hgb) 8.5 12.0-16.0 [facility]anoGefajhzRHOKRYMWUF7315-33-00 05:10:00 Test Item Value Reference Range Interpretation Comments Hct (test code = Hct) 25.7 36.0-48.0 [facility]anoHneqvoaUJKSPKLFIO9687-73-02 05:10:00 Test Item Value Reference Range Interpretation Comments MCV (test code = MCV) 91.7 80.0-98.0 [facility]anoGodekhxAGFOHJJCUH8381-02-49 05:10:00 Test Item Value Reference Range Interpretation Comments MCH (test code = MCH) 30.4 pg 27.0-31.0 [facility]anoKzlkpppGEEETKNYFS0248-10-66 05:10:00 Test Item Value Reference Range Interpretation Comments MCHC (test code = MCHC) 33.1 32.0-36.0 [facility]anoXcgwzsiCGFIFKFRBH6967-18-65 05:10:00 Test Item Value Reference Range Interpretation Comments RDW (test code = RDW) 19.2 11.5-14.5 [facility]anoDcuupgrZFZUMQNSAH9241-06-61 05:10:00 Test Item Value Reference Range Interpretation Comments Platelet (test code = Platelet) 72 133-450 [facility]anoCghznkwUJMWGNPHNZ3705-88-47 05:10:00 Test Item Value Reference Range Interpretation Comments MPV (test code = MPV) 9.9 7.4-10.4 [facility]anoMskduvhHOQUAVGNHJ0133-98-69 05:10:00 Test Item Value Reference Range Interpretation Comments Segs (test code = Segs) 72.6 45.0-75.0 [facility]anoWppkngcTPSMFDXCSL3167-23-39 05:10:00 Test Item Value Reference Range Interpretation Comments Lymphocytes (test code = Lymphocytes) 15.9 20.0-40.0 [facility]anoUcxahhhSBWGPOFUFN2275-77-47 05:10:00 Test Item Value Reference Range Interpretation Comments Monocytes (test code = Monocytes) 7.3 2.0-12.0 [facility]anoTopbgddLTVNTUFMVM5230-72-33 05:10:00 Test Item Value Reference Range Interpretation Comments Eosinophils (test code = 3.4 See_Comment [A utomated message] The Eosinophils) system which ge nerated this result tra nsmitted reference range : <=4.0. The reference r leo was not used to int erpret this result as normal/abnormal . [facility]anoBmvvhalEREFCTHAOY7578-49-02 05:10:00 Test Item Value Reference Range Interpretation Comments Basophils (test code = 0.8 See_Comment [Aut omated message] The Basophils) system which ge nerated this result tra nsmitted reference range : <=1.0. The reference r leo was not used to int erpret this result as normal/abnormal . [facility]anoQofutpvHGSAPJOPBQ7133-40-66 05:10:00 Test Item Value Reference Range Interpretation Comments Neutrophils # (test code = Neutrophils 1.9 1.5-8.1 #) [facility]anoMqnzeouVBBDZBPNTD2925-77-05 05:10:00 Test Item Value Reference Range Interpretation Comments Lymphocytes # (test code = Lymphocytes 0.4 1.0-5.5 #) [facility]anoTonoipxGGKSJZMGLK3772-80-03 05:10:00 Test Item Value Reference Range Interpretation Comments Monocytes # (test code 0.2 See_Comment [Aut omated message] The = Monocytes #) system which generated this result tra nsmitted reference range : <=0.8. The reference r leo was not used to int erpret this result as normal/abnormal . [facility]anoWpgcvlgXECGZBQRYJ9448-22-40 05:10:00 Test Item Value Reference Range Interpretation Comments Eosinophils # (test code 0.1 See_Comment [A utomated message] The = Eosinophils #) system whic h generated this result tra nsmitted reference range : <=0.5. The reference r leo was not used to int erpret this result as normal/abnormal . [facility] EBUYZRC7222-32-19 05:10:00 Test Item Value Reference Range Interpretation Comments Ca Ion WB (test code = Ca Ion WB) 1.10 1.05-1.25 [facility]ATH[facility] IVLJUJM9762-51-97 05:10:00 Test Item Value Reference Range Interpretation Comments Ca Norm WB (test code = Ca Norm WB) 1.06 1.05-1.25 [place] 388371-08-09 05:10:00 Test Item Value Reference Range Interpretation Comments Glucose Lvl (test code = Glucose Lvl) 69 70-99 [place] 388371-08-09 05:10:00 Test Item Value Reference Range Interpretation Comments BUN (test code = BUN) 29 7-22 [facility]2021-08-09 05:10:00 Test Item Value Reference Range Interpretation Comments Creatinine Lvl (test code = Creatinine 5.14 0.50-1.40 Lvl) [place] 388371-08-09 05:10:00 Test Item Value Reference Range Interpretation Comments Sodium Lvl (test code = Sodium Lvl) 134 135-145 [place] 388371-08-09 05:10:00 Test Item Value Reference Range Interpretation Comments Potassium Lvl (test code = Potassium 5.1 3.5-5.1 Lvl) [place] 388371-08-09 05:10:00 Test Item Value Reference Range Interpretation Comments Chloride Lvl (test code = Chloride Lvl) 98 95-109 [place] 388371-08-09 05:10:00 Test Item Value Reference Range Interpretation Comments CO2 (test code = CO2) 29 24-32 [facility]2021-08-09 05:10:00 Test Item Value Reference Range Interpretation Comments Calcium Lvl (test code = Calcium Lvl) 7.6 8.5-10.5 [facility]2021-08-09 05:10:00 Test Item Value Reference Range Interpretation Comments AGAP (test code = AGAP) 12.1 10.0-20.0 [place] 388371-08-09 05:10:00 Test Item Value Reference Range Interpretation Comments eGFR (test code = eGFR) 10 [place] 388371-08-09 05:10:00 Test Item Value Reference Range Interpretation Comments Magnesium Lvl (test code = Magnesium 2.3 1.8-2.4 Lvl) [facility]2021-08-09 05:10:00 Test Item Value Reference Range Interpretation Comments Phosphorus (test code = Phosphorus) 5.0 2.5-4.5 [facility] HospitalPhozuhnADPLKEQCWT0220-21-31 05:10:00 Test Item Value Reference Range Interpretation Comments WBC (test code = WBC) 2.7 3.7-10.4 [facility]anoDwhhjyqLHPLRULVFA1959-24-94 05:10:00 Test Item Value Reference Range Interpretation Comments RBC (test code = RBC) 2.80 4.20-5.40 [facility]anoSxvgtdoOXBMQSYVLV0928-22-46 05:10:00 Test Item Value Reference Range Interpretation Comments Hgb (test code = Hgb) 8.5 12.0-16.0 [facility]anoRqyodbuZINTNJQWBP8801-87-32 05:10:00 Test Item Value Reference Range Interpretation Comments Hct (test code = Hct) 25.7 36.0-48.0 [facility]anoIpqnycoIMLYAEJLHT6844-09-97 05:10:00 Test Item Value Reference Range Interpretation Comments MCV (test code = MCV) 91.7 80.0-98.0 [facility]anoPwidhfrJSXMCCTWZZ7023-23-84 05:10:00 Test Item Value Reference Range Interpretation Comments MCH (test code = MCH) 30.4 pg 27.0-31.0 [facility]anoUbvkzumGLLNKWIOJY6650-88-51 05:10:00 Test Item Value Reference Range Interpretation Comments MCHC (test code = MCHC) 33.1 32.0-36.0 [facility]anoHtoiautCTGFEVAAQE9294-51-85 05:10:00 Test Item Value Reference Range Interpretation Comments RDW (test code = RDW) 19.2 11.5-14.5 [facility]anoPicfzbsMBVYCLRYVU8701-87-71 05:10:00 Test Item Value Reference Range Interpretation Comments Platelet (test code = Platelet) 72 133-450 [facility]anoIyolafwDATTQLCCHU5912-37-22 05:10:00 Test Item Value Reference Range Interpretation Comments MPV (test code = MPV) 9.9 7.4-10.4 [facility]anoQrtkqtpSMAAIVEJKT8018-96-66 05:10:00 Test Item Value Reference Range Interpretation Comments Segs (test code = Segs) 72.6 45.0-75.0 [facility]anoXljageeSZNFPUJRQM7763-11-82 05:10:00 Test Item Value Reference Range Interpretation Comments Lymphocytes (test code = Lymphocytes) 15.9 20.0-40.0 [facility]anoAtnwgzdITBUPCIHBP4599-73-84 05:10:00 Test Item Value Reference Range Interpretation Comments Monocytes (test code = Monocytes) 7.3 2.0-12.0 [facility]anoHvjtfbzUMYUMXNKUS1493-17-18 05:10:00 Test Item Value Reference Range Interpretation Comments Eosinophils (test code = 3.4 See_Comment [A utomated message] The Eosinophils) system which ge nerated this result tra nsmitted reference range : <=4.0. The reference r leo was not used to int erpret this result as normal/abnormal . [facility] PlanoCxucpuyTPJXQKXFCC3748-23-84 05:10:00 Test Item Value Reference Range Interpretation Comments Basophils (test code = 0.8 See_Comment [Aut omated message] The Basophils) system which ge nerated this result tra nsmitted reference range : <=1.0. The reference r leo was not used to int erpret this result as normal/abnormal . [facility] PlanoOenbukuXXGSOYBAUA5159-74-86 05:10:00 Test Item Value Reference Range Interpretation Comments Neutrophils # (test code = Neutrophils 1.9 1.5-8.1 #) [facility]anoIeunaxfDQNQYQPYJQ0406-85-80 05:10:00 Test Item Value Reference Range Interpretation Comments Lymphocytes # (test code = Lymphocytes 0.4 1.0-5.5 #) [facility]anoOeteeysPXETNFQPDN4720-39-57 05:10:00 Test Item Value Reference Range Interpretation Comments Monocytes # (test code 0.2 See_Comment [Aut omated message] The = Monocytes #) system which generated this result tra nsmitted reference range : <=0.8. The reference r leo was not used to int erpret this result as normal/abnormal . [facility]anoOabfnvtXFSELVFSIZ5277-13-88 05:10:00 Test Item Value Reference Range Interpretation Comments Eosinophils # (test code 0.1 See_Comment [A utomated message] The = Eosinophils #) system whic h generated this result tra nsmitted reference range : <=0.5. The reference r leo was not used to int erpret this result as normal/abnormal . [facility] FVPJBCY3748-43-64 05:10:00 Test Item Value Reference Range Interpretation Comments Ca Ion WB (test code = Ca Ion WB) 1.10 1.05-1.25 [facility] CNIQKGX9155-35-14 05:10:00 Test Item Value Reference Range Interpretation Comments Ca Norm WB (test code = Ca Norm WB) 1.06 1.05-1.25 [place] 388371-08-09 05:10:00 Test Item Value Reference Range Interpretation Comments Glucose Lvl (test code = Glucose Lvl) 69 70-99 [place] 388371-08-09 05:10:00 Test Item Value Reference Range Interpretation Comments BUN (test code = BUN) 29 7-22 [facility]2021-08-09 05:10:00 Test Item Value Reference Range Interpretation Comments Creatinine Lvl (test code = Creatinine 5.14 0.50-1.40 Lvl) [place] 388371-08-09 05:10:00 Test Item Value Reference Range Interpretation Comments Sodium Lvl (test code = Sodium Lvl) 134 135-145 [place] 388371-08-09 05:10:00 Test Item Value Reference Range Interpretation Comments Potassium Lvl (test code = Potassium 5.1 3.5-5.1 Lvl) [place] 388371-08-09 05:10:00 Test Item Value Reference Range Interpretation Comments Chloride Lvl (test code = Chloride Lvl) 98 95-109 [place] 388371-08-09 05:10:00 Test Item Value Reference Range Interpretation Comments CO2 (test code = CO2) 29 24-32 [facility]2021-08-09 05:10:00 Test Item Value Reference Range Interpretation Comments Calcium Lvl (test code = Calcium Lvl) 7.6 8.5-10.5 [facility]2021-08-09 05:10:00 Test Item Value Reference Range Interpretation Comments AGAP (test code = AGAP) 12.1 10.0-20.0 [place] 388371-08-09 05:10:00 Test Item Value Reference Range Interpretation Comments eGFR (test code = eGFR) 10 [place] 388371-08-09 05:10:00 Test Item Value Reference Range Interpretation Comments Magnesium Lvl (test code = Magnesium 2.3 1.8-2.4 Lvl) [facility]2021-08-09 05:10:00 Test Item Value Reference Range Interpretation Comments Phosphorus (test code = Phosphorus) 5.0 2.5-4.5 [facility]EyzminkZSRHXQNZRB2705-76-45 05:10:00 Test Item Value Reference Range Interpretation Comments WBC (test code = WBC) 2.7 3.7-10.4 [facility]anoEcvkfxsCTJRGOLIVB2105-31-66 05:10:00 Test Item Value Reference Range Interpretation Comments RBC (test code = RBC) 2.80 4.20-5.40 [facility]anoQdzqndgTVCNLLNENU5714-65-43 05:10:00 Test Item Value Reference Range Interpretation Comments Hgb (test code = Hgb) 8.5 12.0-16.0 [facility]anoPzuegjmSMKTXMGAXI1942-25-90 05:10:00 Test Item Value Reference Range Interpretation Comments Hct (test code = Hct) 25.7 36.0-48.0 [facility]anoEhnhqvbIBHSNIRUQL4270-71-65 05:10:00 Test Item Value Reference Range Interpretation Comments MCV (test code = MCV) 91.7 80.0-98.0 [facility]anoHbidelnPWPTEYODGT1718-43-84 05:10:00 Test Item Value Reference Range Interpretation Comments MCH (test code = MCH) 30.4 pg 27.0-31.0 [facility]anoRamuvhmNVBCWCGIIH1827-39-43 05:10:00 Test Item Value Reference Range Interpretation Comments MCHC (test code = MCHC) 33.1 32.0-36.0 [facility]anoKojobnzCWGLTNDJBR4762-43-22 05:10:00 Test Item Value Reference Range Interpretation Comments RDW (test code = RDW) 19.2 11.5-14.5 [facility]anoKdkicabWUJHDMEVDH3732-36-59 05:10:00 Test Item Value Reference Range Interpretation Comments Platelet (test code = Platelet) 72 133-450 [facility]anoHexsmhcFDHEJTPAYC9083-71-82 05:10:00 Test Item Value Reference Range Interpretation Comments MPV (test code = MPV) 9.9 7.4-10.4 [facility]anoBacgyuuLTBVBNPPNO5411-34-04 05:10:00 Test Item Value Reference Range Interpretation Comments Segs (test code = Segs) 72.6 45.0-75.0 [facility] PlanoGrfhowfAYREIQOJUJ1624-98-63 05:10:00 Test Item Value Reference Range Interpretation Comments Lymphocytes (test code = Lymphocytes) 15.9 20.0-40.0 [facility] PlanoJtxaapsFORWMWHHKA1944-73-41 05:10:00 Test Item Value Reference Range Interpretation Comments Monocytes (test code = Monocytes) 7.3 2.0-12.0 [facility]anoKmsvyskQQTDZJYKAK0268-76-20 05:10:00 Test Item Value Reference Range Interpretation Comments Eosinophils (test code = 3.4 See_Comment [A utomated message] The Eosinophils) system which ge nerated this result tra nsmitted reference range : <=4.0. The reference r leo was not used to int erpret this result as normal/abnormal . [facility]anoKxrolyyWMRXDFNUSN0203-94-69 05:10:00 Test Item Value Reference Range Interpretation Comments Basophils (test code = 0.8 See_Comment [Aut omated message] The Basophils) system which ge nerated this result tra nsmitted reference range : <=1.0. The reference r leo was not used to int erpret this result as normal/abnormal . [facility]anoSvfyvgrDOFGBRARUU5822-54-96 05:10:00 Test Item Value Reference Range Interpretation Comments Neutrophils # (test code = Neutrophils 1.9 1.5-8.1 #) [facility]anoOztbfeoWRJEZTFIIZ1002-81-95 05:10:00 Test Item Value Reference Range Interpretation Comments Lymphocytes # (test code = Lymphocytes 0.4 1.0-5.5 #) [facility] PlanoLjtmlpcDHJKNJWMUH4734-72-71 05:10:00 Test Item Value Reference Range Interpretation Comments Monocytes # (test code 0.2 See_Comment [Aut omated message] The = Monocytes #) system which generated this result tra nsmitted reference range : <=0.8. The reference r leo was not used to int erpret this result as normal/abnormal . [facility]anoRehoaeoBYCUVWRSCG3241-55-22 05:10:00 Test Item Value Reference Range Interpretation Comments Eosinophils # (test code 0.1 See_Comment [A utomated message] The = Eosinophils #) system whic h generated this result tra nsmitted reference range : <=0.5. The reference r leo was not used to int erpret this result as normal/abnormal . [facility] [id number] 05:10:00 Test Item Value Reference Range Interpretation Comments Ca Ion WB (test code = Ca Ion WB) 1.10 1.05-1.25 [facility] [id number] 05:10:00 Test Item Value Reference Range Interpretation Comments Ca Norm WB (test code = Ca Norm WB) 1.06 1.05-1.25 [place] 388371-08-09 05:10:00 Test Item Value Reference Range Interpretation Comments Glucose Lvl (test code = Glucose Lvl) 69 70-99 [place] 388371-08-09 05:10:00 Test Item Value Reference Range Interpretation Comments BUN (test code = BUN) 29 7-22 [facility]2021-08-09 05:10:00 Test Item Value Reference Range Interpretation Comments Creatinine Lvl (test code = Creatinine 5.14 0.50-1.40 Lvl) [place] 388371-08-09 05:10:00 Test Item Value Reference Range Interpretation Comments Sodium Lvl (test code = Sodium Lvl) 134 135-145 [place] 388371-08-09 05:10:00 Test Item Value Reference Range Interpretation Comments Potassium Lvl (test code = Potassium 5.1 3.5-5.1 Lvl) [place] 388371-08-09 05:10:00 Test Item Value Reference Range Interpretation Comments Chloride Lvl (test code = Chloride Lvl) 98 95-109 [place] 388371-08-09 05:10:00 Test Item Value Reference Range Interpretation Comments CO2 (test code = CO2) 29 24-32 [facility]2021-08-09 05:10:00 Test Item Value Reference Range Interpretation Comments Calcium Lvl (test code = Calcium Lvl) 7.6 8.5-10.5 [facility]2021-08-09 05:10:00 Test Item Value Reference Range Interpretation Comments AGAP (test code = AGAP) 12.1 10.0-20.0 [place] 388371-08-09 05:10:00 Test Item Value Reference Range Interpretation Comments eGFR (test code = eGFR) 10 [place] 388371-08-09 05:10:00 Test Item Value Reference Range Interpretation Comments Magnesium Lvl (test code = Magnesium 2.3 1.8-2.4 Lvl) [facility]2021-08-09 05:10:00 Test Item Value Reference Range Interpretation Comments Phosphorus (test code = Phosphorus) 5.0 2.5-4.5 [facility] 05:10:00 Test Item Value Reference Range Interpretation Comments WBC (test code = WBC) 2.7 3.7-10.4 [facility]anoJakitilFKQOJMVJHU8150-73-30 05:10:00 Test Item Value Reference Range Interpretation Comments RBC (test code = RBC) 2.80 4.20-5.40 [facility]anoQeptpbyHARJYJMESV5783-93-08 05:10:00 Test Item Value Reference Range Interpretation Comments Hgb (test code = Hgb) 8.5 12.0-16.0 [facility]anoJxxwfkdJGSUCOWUIM4328-67-51 05:10:00 Test Item Value Reference Range Interpretation Comments Hct (test code = Hct) 25.7 36.0-48.0 [facility]anoHfcmwfwQCVFJFIUNO3962-89-98 05:10:00 Test Item Value Reference Range Interpretation Comments MCV (test code = MCV) 91.7 80.0-98.0 [facility]anoFhkfawgIWLQZGYQCL5770-79-49 05:10:00 Test Item Value Reference Range Interpretation Comments MCH (test code = MCH) 30.4 pg 27.0-31.0 [facility]anoEclwdhlSTPNLHPNKY3381-81-58 05:10:00 Test Item Value Reference Range Interpretation Comments MCHC (test code = MCHC) 33.1 32.0-36.0 [facility]anoUevzmcmCTWMHBKUTL3363-30-16 05:10:00 Test Item Value Reference Range Interpretation Comments RDW (test code = RDW) 19.2 11.5-14.5 [facility]anoYtwaqegXTXCJTQASF4743-68-58 05:10:00 Test Item Value Reference Range Interpretation Comments Platelet (test code = Platelet) 72 133-450 [facility]anoEltoqpoEBFLTOFPLY9577-67-40 05:10:00 Test Item Value Reference Range Interpretation Comments MPV (test code = MPV) 9.9 7.4-10.4 [facility]anoKtvjlygQICICLIXIH0597-24-97 05:10:00 Test Item Value Reference Range Interpretation Comments Segs (test code = Segs) 72.6 45.0-75.0 [facility]anoRezylnhUYGOZRTUAR2823-98-18 05:10:00 Test Item Value Reference Range Interpretation Comments Lymphocytes (test code = Lymphocytes) 15.9 20.0-40.0 [facility]anoIucmxmhUVPAUFHJIX6431-05-81 05:10:00 Test Item Value Reference Range Interpretation Comments Monocytes (test code = Monocytes) 7.3 2.0-12.0 [facility]anoPqvphwuRZBJEZHZVZ2904-70-06 05:10:00 Test Item Value Reference Range Interpretation Comments Eosinophils (test code = 3.4 See_Comment [A utomated message] The Eosinophils) system which ge nerated this result tra nsmitted reference range : <=4.0. The reference r leo was not used to int erpret this result as normal/abnormal . [facility]anoIuebegvWEZIYHEMSS4599-31-62 05:10:00 Test Item Value Reference Range Interpretation Comments Basophils (test code = 0.8 See_Comment [Aut omated message] The Basophils) system which ge nerated this result tra nsmitted reference range : <=1.0. The reference r leo was not used to int erpret this result as normal/abnormal . [facility]anoUljpfpgIKGWJMCSUB0601-55-09 05:10:00 Test Item Value Reference Range Interpretation Comments Neutrophils # (test code = Neutrophils 1.9 1.5-8.1 #) [facility]anoXqbrkeuQIZDUDRBGG9372-68-63 05:10:00 Test Item Value Reference Range Interpretation Comments Lymphocytes # (test code = Lymphocytes 0.4 1.0-5.5 #) [facility]anoByuwrwlUERWIXGLVP3601-86-60 05:10:00 Test Item Value Reference Range Interpretation Comments Monocytes # (test code 0.2 See_Comment [Aut omated message] The = Monocytes #) system which generated this result tra nsmitted reference range : <=0.8. The reference r leo was not used to int erpret this result as normal/abnormal . [facility]anoZdirsvyXVFOPHIYJT9337-25-49 05:10:00 Test Item Value Reference Range Interpretation Comments Eosinophils # (test code 0.1 See_Comment [A utomated message] The = Eosinophils #) system whic h generated this result tra nsmitted reference range : <=0.5. The reference r leo was not used to int erpret this result as normal/abnormal . [facility] QSKYPBS9527-29-43 05:10:00 Test Item Value Reference Range Interpretation Comments Ca Ion WB (test code = Ca Ion WB) 1.10 1.05-1.25 [facility] YYQCTPV3691-09-77 05:10:00 Test Item Value Reference Range Interpretation Comments Ca Norm WB (test code = Ca Norm WB) 1.06 1.05-1.25 [facility]2021-08-08 18:36:00 Test Item Value Reference Range Interpretation Comments C difficile DNA (test Negative (01/26/21 1:36 code = C difficile DNA) PM) [facility]2021-08-08 18:36:00 Test Item Value Reference Range Interpretation Comments C difficile DNA (test Negative (01/26/21 1:36 code = C difficile DNA) PM) [facility]2021-08-08 18:36:00 Test Item Value Reference Range Interpretation Comments C difficile DNA (test Negative (01/26/21 1:36 code = C difficile DNA) PM) [facility]2021-08-08 18:36:00 Test Item Value Reference Range Interpretation Comments C difficile DNA (test Negative (01/26/21 1:36 code = C difficile DNA) PM) [facility]2021-08-08 18:36:00 Test Item Value Reference Range Interpretation Comments C difficile DNA (test Negative (01/26/21 1:36 code = C difficile DNA) PM) [facility]2021-08-08 07:33:00 Test Item Value Reference Range Interpretation Comments Ca Ion WB (test code = Ca Ion WB) 1.12 1.05-1.25 [facility]2021-08-08 07:33:00 Test Item Value Reference Range Interpretation Comments Ca Norm WB (test code = Ca Norm WB) 1.07 1.05-1.25 [facility]2021-08-08 07:33:00 Test Item Value Reference Range Interpretation Comments Ca Ion WB (test code = Ca Ion WB) 1.12 1.05-1.25 [facility]2021-08-08 07:33:00 Test Item Value Reference Range Interpretation Comments Ca Norm WB (test code = Ca Norm WB) 1.07 1.05-1.25 [facility]2021-08-08 07:33:00 Test Item Value Reference Range Interpretation Comments Ca Ion WB (test code = Ca Ion WB) 1.12 1.05-1.25 [facility]2021-08-08 07:33:00 Test Item Value Reference Range Interpretation Comments Ca Norm WB (test code = Ca Norm WB) 1.07 1.05-1.25 [place] 702811-08-08 07:33:00 Test Item Value Reference Range Interpretation Comments Ca Ion WB (test code = Ca Ion WB) 1.12 1.05-1.25 [place] 702811-08-08 07:33:00 Test Item Value Reference Range Interpretation Comments Ca Norm WB (test code = Ca Norm WB) 1.07 1.05-1.25 [place] 702811-08-08 07:33:00 Test Item Value Reference Range Interpretation Comments Ca Ion WB (test code = Ca Ion WB) 1.12 1.05-1.25 [place] 702811-08-08 07:33:00 Test Item Value Reference Range Interpretation Comments Ca Norm WB (test code = Ca Norm WB) 1.07 1.05-1.25 [place] 388371-08-08 07:30:00 Test Item Value Reference Range Interpretation Comments Glucose Lvl (test code = Glucose Lvl) 65 70-99 [place] 388371-08-08 07:30:00 Test Item Value Reference Range Interpretation Comments BUN (test code = BUN) 21 7-22 [place] 388371-08-08 07:30:00 Test Item Value Reference Range Interpretation Comments Creatinine Lvl (test code = Creatinine 4.18 0.50-1.40 Lvl) [place] 388371-08-08 07:30:00 Test Item Value Reference Range Interpretation Comments Sodium Lvl (test code = Sodium Lvl) 136 135-145 [place] 388371-08-08 07:30:00 Test Item Value Reference Range Interpretation Comments Potassium Lvl (test code = Potassium 4.5 3.5-5.1 Lvl) [place] 388371-08-08 07:30:00 Test Item Value Reference Range Interpretation Comments Chloride Lvl (test code = Chloride Lvl) 99 95-109 [place] 388371-08-08 07:30:00 Test Item Value Reference Range Interpretation Comments CO2 (test code = CO2) 31 24-32 [place] 388371-08-08 07:30:00 Test Item Value Reference Range Interpretation Comments AGAP (test code = AGAP) 10.5 10.0-20.0 [place] 388371-08-08 07:30:00 Test Item Value Reference Range Interpretation Comments Calcium Lvl (test code = Calcium Lvl) 7.9 8.5-10.5 [place] 388371-08-08 07:30:00 Test Item Value Reference Range Interpretation Comments eGFR (test code = eGFR) 13 [place] 388371-08-08 07:30:00 Test Item Value Reference Range Interpretation Comments Magnesium Lvl (test code = Magnesium 2.2 1.8-2.4 Lvl) [place] 388371-08-08 07:30:00 Test Item Value Reference Range Interpretation Comments Phosphorus (test code = Phosphorus) 4.4 2.5-4.5 [place] 876111-08-08 07:30:00 Test Item Value Reference Range Interpretation Comments WBC (test code = WBC) 2.3 3.7-10.4 [place] 876111-08-08 07:30:00 Test Item Value Reference Range Interpretation Comments RBC (test code = RBC) 2.88 4.20-5.40 [place] 876111-08-08 07:30:00 Test Item Value Reference Range Interpretation Comments Hgb (test code = Hgb) 8.6 12.0-16.0 [place] 876111-08-08 07:30:00 Test Item Value Reference Range Interpretation Comments Hct (test code = Hct) 26.6 36.0-48.0 [place] 876111-08-08 07:30:00 Test Item Value Reference Range Interpretation Comments MCV (test code = MCV) 92.2 80.0-98.0 [place] 876111-08-08 07:30:00 Test Item Value Reference Range Interpretation Comments MCH (test code = MCH) 29.8 pg 27.0-31.0 [place] 876111-08-08 07:30:00 Test Item Value Reference Range Interpretation Comments MCHC (test code = MCHC) 32.4 32.0-36.0 [place] 876111-08-08 07:30:00 Test Item Value Reference Range Interpretation Comments RDW (test code = RDW) 19.7 11.5-14.5 [facility]anoTlbdiluWENGSMCOSR2798-36-20 07:30:00 Test Item Value Reference Range Interpretation Comments Platelet (test code = Platelet) 83 133-450 [facility]anoFcdokvbPLLKCCQYFM5012-37-58 07:30:00 Test Item Value Reference Range Interpretation Comments MPV (test code = MPV) 10.2 7.4-10.4 [place] 876111-08-08 07:30:00 Test Item Value Reference Range Interpretation Comments Segs (test code = Segs) 64.0 45.0-75.0 [place] 876111-08-08 07:30:00 Test Item Value Reference Range Interpretation Comments Lymphocytes (test code = Lymphocytes) 24.1 20.0-40.0 [place] 876111-08-08 07:30:00 Test Item Value Reference Range Interpretation Comments Monocytes (test code = Monocytes) 7.0 2.0-12.0 [place] 876111-08-08 07:30:00 Test Item Value Reference Range Interpretation Comments Eosinophils (test code = 3.7 See_Comment [A utomated message] The Eosinophils) system which ge nerated this result tra nsmitted reference range : <=4.0. The reference r leo was not used to int erpret this result as normal/abnormal . [facility]anoRosmqakNTSVPPFXBM5686-45-97 07:30:00 Test Item Value Reference Range Interpretation Comments Basophils (test code = 1.2 See_Comment [Aut omated message] The Basophils) system which ge nerated this result tra nsmitted reference range : <=1.0. The reference r leo was not used to int erpret this result as normal/abnormal . [facility]anoTyvonnnRCFENLUTHJ7537-84-39 07:30:00 Test Item Value Reference Range Interpretation Comments Neutrophils # (test code = Neutrophils 1.5 1.5-8.1 #) [place] 876111-08-08 07:30:00 Test Item Value Reference Range Interpretation Comments Lymphocytes # (test code = Lymphocytes 0.6 1.0-5.5 #) [place] 876111-08-08 07:30:00 Test Item Value Reference Range Interpretation Comments Monocytes # (test code 0.2 See_Comment [Aut omated message] The = Monocytes #) system which generated this result tra nsmitted reference range : <=0.8. The reference r leo was not used to int erpret this result as normal/abnormal . [facility]anoMwducejVJPPQGVSIA5899-62-42 07:30:00 Test Item Value Reference Range Interpretation Comments Eosinophils # (test code 0.1 See_Comment [A utomated message] The = Eosinophils #) system whic h generated this result tra nsmitted reference range : <=0.5. The reference r leo was not used to int erpret this result as normal/abnormal . [facility]2021-08-08 07:30:00 Test Item Value Reference Range Interpretation Comments Glucose Lvl (test code = Glucose Lvl) 65 70-99 [place] 388371-08-08 07:30:00 Test Item Value Reference Range Interpretation Comments BUN (test code = BUN) 21 7-22 [place] [address]-08-08 07:30:00 Test Item Value Reference Range Interpretation Comments Creatinine Lvl (test code = Creatinine 4.18 0.50-1.40 Lvl) [place] 388371-08-08 07:30:00 Test Item Value Reference Range Interpretation Comments Sodium Lvl (test code = Sodium Lvl) 136 135-145 [place] 388371-08-08 07:30:00 Test Item Value Reference Range Interpretation Comments Potassium Lvl (test code = Potassium 4.5 3.5-5.1 Lvl) [place] [address]-08-08 07:30:00 Test Item Value Reference Range Interpretation Comments Chloride Lvl (test code = Chloride Lvl) 99 95-109 [place] 388371-08-08 07:30:00 Test Item Value Reference Range Interpretation Comments CO2 (test code = CO2) 31 24-32 [place] 388371-08-08 07:30:00 Test Item Value Reference Range Interpretation Comments AGAP (test code = AGAP) 10.5 10.0-20.0 [place] 388371-08-08 07:30:00 Test Item Value Reference Range Interpretation Comments Calcium Lvl (test code = Calcium Lvl) 7.9 8.5-10.5 [place] 388371-08-08 07:30:00 Test Item Value Reference Range Interpretation Comments eGFR (test code = eGFR) 13 [facility]2021-08-08 07:30:00 Test Item Value Reference Range Interpretation Comments Magnesium Lvl (test code = Magnesium 2.2 1.8-2.4 Lvl) [facility]2021-08-08 07:30:00 Test Item Value Reference Range Interpretation Comments Phosphorus (test code = Phosphorus) 4.4 2.5-4.5 [place] 876111-08-08 07:30:00 Test Item Value Reference Range Interpretation Comments WBC (test code = WBC) 2.3 3.7-10.4 [place] 876111-08-08 07:30:00 Test Item Value Reference Range Interpretation Comments RBC (test code = RBC) 2.88 4.20-5.40 [place] 876111-08-08 07:30:00 Test Item Value Reference Range Interpretation Comments Hgb (test code = Hgb) 8.6 12.0-16.0 [place] 876111-08-08 07:30:00 Test Item Value Reference Range Interpretation Comments Hct (test code = Hct) 26.6 36.0-48.0 [facility]anoXrmneffYYEUEIKUXS5164-96-10 07:30:00 Test Item Value Reference Range Interpretation Comments MCV (test code = MCV) 92.2 80.0-98.0 [place] 876111-08-08 07:30:00 Test Item Value Reference Range Interpretation Comments MCH (test code = MCH) 29.8 pg 27.0-31.0 [place] 876111-08-08 07:30:00 Test Item Value Reference Range Interpretation Comments MCHC (test code = MCHC) 32.4 32.0-36.0 [place] 876111-08-08 07:30:00 Test Item Value Reference Range Interpretation Comments RDW (test code = RDW) 19.7 11.5-14.5 [facility]anoInuhggxOJJBOIKJSP2949-91-17 07:30:00 Test Item Value Reference Range Interpretation Comments Platelet (test code = Platelet) 83 133-450 [facility]anoJalctsuXMJLMNYEAV1921-85-38 07:30:00 Test Item Value Reference Range Interpretation Comments MPV (test code = MPV) 10.2 7.4-10.4 [place] 876111-08-08 07:30:00 Test Item Value Reference Range Interpretation Comments Segs (test code = Segs) 64.0 45.0-75.0 [facility]anoCiflwemHYFQTMAZJX3181-69-15 07:30:00 Test Item Value Reference Range Interpretation Comments Lymphocytes (test code = Lymphocytes) 24.1 20.0-40.0 [facility]anoJdefjwsKZSLXNJFBV2230-81-62 07:30:00 Test Item Value Reference Range Interpretation Comments Monocytes (test code = Monocytes) 7.0 2.0-12.0 [facility]anoQvzvlakXHXGEQLONC6772-51-98 07:30:00 Test Item Value Reference Range Interpretation Comments Eosinophils (test code = 3.7 See_Comment [A utomated message] The Eosinophils) system which ge nerated this result tra nsmitted reference range : <=4.0. The reference r leo was not used to int erpret this result as normal/abnormal . [facility]anoXcldbhmDXPHVXBDYB2276-88-36 07:30:00 Test Item Value Reference Range Interpretation Comments Basophils (test code = 1.2 See_Comment [Aut omated message] The Basophils) system which ge nerated this result tra nsmitted reference range : <=1.0. The reference r leo was not used to int erpret this result as normal/abnormal . [facility]anoXmuxbwaYOOUJAKYPK1657-01-05 07:30:00 Test Item Value Reference Range Interpretation Comments Neutrophils # (test code = Neutrophils 1.5 1.5-8.1 #) [facility]anoGpzfubgELROOWXTEQ8812-64-05 07:30:00 Test Item Value Reference Range Interpretation Comments Lymphocytes # (test code = Lymphocytes 0.6 1.0-5.5 #) [facility]anoNywsaczPIWZOHYDLJ6889-66-65 07:30:00 Test Item Value Reference Range Interpretation Comments Monocytes # (test code 0.2 See_Comment [Aut omated message] The = Monocytes #) system which generated this result tra nsmitted reference range : <=0.8. The reference r leo was not used to int erpret this result as normal/abnormal . [facility]anoYboizxsFNHNHRQNRZ2827-62-39 07:30:00 Test Item Value Reference Range Interpretation Comments Eosinophils # (test code 0.1 See_Comment [A utomated message] The = Eosinophils #) system whic h generated this result tra nsmitted reference range : <=0.5. The reference r leo was not used to int erpret this result as normal/abnormal . [place] 388371-08-08 07:30:00 Test Item Value Reference Range Interpretation Comments Glucose Lvl (test code = Glucose Lvl) 65 70-99 [place] 388371-08-08 07:30:00 Test Item Value Reference Range Interpretation Comments BUN (test code = BUN) 21 7-22 [place] 388371-08-08 07:30:00 Test Item Value Reference Range Interpretation Comments Creatinine Lvl (test code = Creatinine 4.18 0.50-1.40 Lvl) [place] 388371-08-08 07:30:00 Test Item Value Reference Range Interpretation Comments Sodium Lvl (test code = Sodium Lvl) 136 135-145 [place] 388371-08-08 07:30:00 Test Item Value Reference Range Interpretation Comments Potassium Lvl (test code = Potassium 4.5 3.5-5.1 Lvl) [place] 388371-08-08 07:30:00 Test Item Value Reference Range Interpretation Comments Chloride Lvl (test code = Chloride Lvl) 99 95-109 [place] 388371-08-08 07:30:00 Test Item Value Reference Range Interpretation Comments CO2 (test code = CO2) 31 24-32 [facility]2021-08-08 07:30:00 Test Item Value Reference Range Interpretation Comments AGAP (test code = AGAP) 10.5 10.0-20.0 [facility]2021-08-08 07:30:00 Test Item Value Reference Range Interpretation Comments Calcium Lvl (test code = Calcium Lvl) 7.9 8.5-10.5 [place] 388371-08-08 07:30:00 Test Item Value Reference Range Interpretation Comments eGFR (test code = eGFR) 13 [place] 388371-08-08 07:30:00 Test Item Value Reference Range Interpretation Comments Magnesium Lvl (test code = Magnesium 2.2 1.8-2.4 Lvl) [place] 388371-08-08 07:30:00 Test Item Value Reference Range Interpretation Comments Phosphorus (test code = Phosphorus) 4.4 2.5-4.5 [facility]anoFgxeotnDKLOEXPOPN9683-37-33 07:30:00 Test Item Value Reference Range Interpretation Comments WBC (test code = WBC) 2.3 3.7-10.4 [facility]anoJqnreolTMOVPDRGBZ8846-29-71 07:30:00 Test Item Value Reference Range Interpretation Comments RBC (test code = RBC) 2.88 4.20-5.40 [facility]anoSxmwoaiMDFBIQSPEW3636-72-33 07:30:00 Test Item Value Reference Range Interpretation Comments Hgb (test code = Hgb) 8.6 12.0-16.0 [facility] PlanoFrpruuxWJZOYKUNWK7924-90-19 07:30:00 Test Item Value Reference Range Interpretation Comments Hct (test code = Hct) 26.6 36.0-48.0 [facility]anoLknfmgwEHKPZJVXQI3029-38-34 07:30:00 Test Item Value Reference Range Interpretation Comments MCV (test code = MCV) 92.2 80.0-98.0 [facility]anoVveuxmmAZYJIWWYNN5183-67-08 07:30:00 Test Item Value Reference Range Interpretation Comments MCH (test code = MCH) 29.8 pg 27.0-31.0 [facility]anoTfdzbccEPOCLJZUZI8825-45-96 07:30:00 Test Item Value Reference Range Interpretation Comments MCHC (test code = MCHC) 32.4 32.0-36.0 [facility]anoNfwstbyWLGPDVIZEM6517-03-07 07:30:00 Test Item Value Reference Range Interpretation Comments RDW (test code = RDW) 19.7 11.5-14.5 [facility]anoPdhskmxWAQYJRBAQU6796-57-81 07:30:00 Test Item Value Reference Range Interpretation Comments Platelet (test code = Platelet) 83 133-450 [facility]anoMjbscywICOGODJUDH8354-78-30 07:30:00 Test Item Value Reference Range Interpretation Comments MPV (test code = MPV) 10.2 7.4-10.4 [facility]anoCrjpysiAHPNCBKMVY4971-56-51 07:30:00 Test Item Value Reference Range Interpretation Comments Segs (test code = Segs) 64.0 45.0-75.0 [place] 876111-08-08 07:30:00 Test Item Value Reference Range Interpretation Comments Lymphocytes (test code = Lymphocytes) 24.1 20.0-40.0 [place] 876111-08-08 07:30:00 Test Item Value Reference Range Interpretation Comments Monocytes (test code = Monocytes) 7.0 2.0-12.0 [place] 876111-08-08 07:30:00 Test Item Value Reference Range Interpretation Comments Eosinophils (test code = 3.7 See_Comment [A utomated message] The Eosinophils) system which ge nerated this result tra nsmitted reference range : <=4.0. The reference r leo was not used to int erpret this result as normal/abnormal . [place] 876111-08-08 07:30:00 Test Item Value Reference Range Interpretation Comments Basophils (test code = 1.2 See_Comment [Aut omated message] The Basophils) system which ge nerated this result tra nsmitted reference range : <=1.0. The reference r leo was not used to int erpret this result as normal/abnormal . [place] 876111-08-08 07:30:00 Test Item Value Reference Range Interpretation Comments Neutrophils # (test code = Neutrophils 1.5 1.5-8.1 #) [place] 876111-08-08 07:30:00 Test Item Value Reference Range Interpretation Comments Lymphocytes # (test code = Lymphocytes 0.6 1.0-5.5 #) [place] 876111-08-08 07:30:00 Test Item Value Reference Range Interpretation Comments Monocytes # (test code 0.2 See_Comment [Aut omated message] The = Monocytes #) system which generated this result tra nsmitted reference range : <=0.8. The reference r leo was not used to int erpret this result as normal/abnormal . [place] 876111-08-08 07:30:00 Test Item Value Reference Range Interpretation Comments Eosinophils # (test code 0.1 See_Comment [A utomated message] The = Eosinophils #) system whic h generated this result tra nsmitted reference range : <=0.5. The reference r leo was not used to int erpret this result as normal/abnormal . [facility]2021-08-08 07:30:00 Test Item Value Reference Range Interpretation Comments Glucose Lvl (test code = Glucose Lvl) 65 70-99 [facility]:30:[facility] Test Item Value Reference Range Interpretation Comments BUN (test code = BUN) 21 7-22 [place] 388371-08-08 07:30:00 Test Item Value Reference Range Interpretation Comments Creatinine Lvl (test code = Creatinine 4.18 0.50-1.40 Lvl) [place] 388371-08-08 07:30:00 Test Item Value Reference Range Interpretation Comments Sodium Lvl (test code = Sodium Lvl) 136 135-145 [place] 388371-08-08 07:30:00 Test Item Value Reference Range Interpretation Comments Potassium Lvl (test code = Potassium 4.5 3.5-5.1 Lvl) [place] 388371-08-08 07:30:00 Test Item Value Reference Range Interpretation Comments Chloride Lvl (test code = Chloride Lvl) 99 95-109 [place] 388371-08-08 07:30:00 Test Item Value Reference Range Interpretation Comments CO2 (test code = CO2) 31 24-32 [place] 388371-08-08 07:30:00 Test Item Value Reference Range Interpretation Comments AGAP (test code = AGAP) 10.5 10.0-20.0 [place] 388371-08-08 07:30:00 Test Item Value Reference Range Interpretation Comments Calcium Lvl (test code = Calcium Lvl) 7.9 8.5-10.5 [place] 388371-08-08 07:30:00 Test Item Value Reference Range Interpretation Comments eGFR (test code = eGFR) 13 [place] 388371-08-08 07:30:00 Test Item Value Reference Range Interpretation Comments Magnesium Lvl (test code = Magnesium 2.2 1.8-2.4 Lvl) [place] 388371-08-08 07:30:00 Test Item Value Reference Range Interpretation Comments Phosphorus (test code = Phosphorus) 4.4 2.5-4.5 [place] 876111-08-08 07:30:00 Test Item Value Reference Range Interpretation Comments WBC (test code = WBC) 2.3 3.7-10.4 [place] 876111-08-08 07:30:00 Test Item Value Reference Range Interpretation Comments RBC (test code = RBC) 2.88 4.20-5.40 [place] 876111-08-08 07:30:00 Test Item Value Reference Range Interpretation Comments Hgb (test code = Hgb) 8.6 12.0-16.0 [facility]GDGVDXZT2739[facility]12 07:30:00 Test Item Value Reference Range Interpretation Comments Hct (test code = Hct) 26.6 36.0-48.0 [place] 876111-08-08 07:30:00 Test Item Value Reference Range Interpretation Comments MCV (test code = MCV) 92.2 80.0-98.0 [facility]anoRxmyvnzXRWSOUXSIU3517-36-51 07:30:00 Test Item Value Reference Range Interpretation Comments MCH (test code = MCH) 29.8 pg 27.0-31.0 [facility]anoDaozqugRAPFBJFHYK0635-38-52 07:30:00 Test Item Value Reference Range Interpretation Comments MCHC (test code = MCHC) 32.4 32.0-36.0 [facility]anoSlxjkjiMLUAFMQLJL5006-27-13 07:30:00 Test Item Value Reference Range Interpretation Comments RDW (test code = RDW) 19.7 11.5-14.5 [facility]anoRvwcghkNJLGIFRTSH1118-32-55 07:30:00 Test Item Value Reference Range Interpretation Comments Platelet (test code = Platelet) 83 133-450 [facility]anoQvhzlqtIEWORTSDWL3194-94-61 07:30:00 Test Item Value Reference Range Interpretation Comments MPV (test code = MPV) 10.2 7.4-10.4 [place] 876111-08-08 07:30:00 Test Item Value Reference Range Interpretation Comments Segs (test code = Segs) 64.0 45.0-75.0 [facility]anoTbfhxogMHYKTOGINJ8434-65-97 07:30:00 Test Item Value Reference Range Interpretation Comments Lymphocytes (test code = Lymphocytes) 24.1 20.0-40.0 [facility]anoEanysefRZGMIJFZGW0041-28-22 07:30:00 Test Item Value Reference Range Interpretation Comments Monocytes (test code = Monocytes) 7.0 2.0-12.0 [facility]anoLdrtekcLMLWPDUBJS0304-56-67 07:30:00 Test Item Value Reference Range Interpretation Comments Eosinophils (test code = 3.7 See_Comment [A utomated message] The Eosinophils) system which ge nerated this result tra nsmitted reference range : <=4.0. The reference r leo was not used to int erpret this result as normal/abnormal . [place] 876111-08-08 07:30:00 Test Item Value Reference Range Interpretation Comments Basophils (test code = 1.2 See_Comment [Aut omated message] The Basophils) system which ge nerated this result tra nsmitted reference range : <=1.0. The reference r leo was not used to int erpret this result as normal/abnormal . [place] 876111-08-08 07:30:00 Test Item Value Reference Range Interpretation Comments Neutrophils # (test code = Neutrophils 1.5 1.5-8.1 #) [place] 876111-08-08 07:30:00 Test Item Value Reference Range Interpretation Comments Lymphocytes # (test code = Lymphocytes 0.6 1.0-5.5 #) [facility]anoAfoxdumEQAUDFIUNL8148-15-34 07:30:00 Test Item Value Reference Range Interpretation Comments Monocytes # (test code 0.2 See_Comment [Aut omated message] The = Monocytes #) system which generated this result tra nsmitted reference range : <=0.8. The reference r leo was not used to int erpret this result as normal/abnormal . [place] 876111-08-08 07:30:00 Test Item Value Reference Range Interpretation Comments Eosinophils # (test code 0.1 See_Comment [A utomated message] The = Eosinophils #) system whic h generated this result tra nsmitted reference range : <=0.5. The reference r leo was not used to int erpret this result as normal/abnormal . [facility]2021-08-08 07:30:00 Test Item Value Reference Range Interpretation Comments Glucose Lvl (test code = Glucose Lvl) 65 70-99 [place] 388371-08-08 07:30:00 Test Item Value Reference Range Interpretation Comments BUN (test code = BUN) 21 7-22 [place] 388371-08-08 07:30:00 Test Item Value Reference Range Interpretation Comments Creatinine Lvl (test code = Creatinine 4.18 0.50-1.40 Lvl) [place] 388371-08-08 07:30:00 Test Item Value Reference Range Interpretation Comments Sodium Lvl (test code = Sodium Lvl) 136 135-145 [place] 388371-08-08 07:30:00 Test Item Value Reference Range Interpretation Comments Potassium Lvl (test code = Potassium 4.5 3.5-5.1 Lvl) [place] 388371-08-08 07:30:00 Test Item Value Reference Range Interpretation Comments Chloride Lvl (test code = Chloride Lvl) 99 95-109 [place] 388371-08-08 07:30:00 Test Item Value Reference Range Interpretation Comments CO2 (test code = CO2) 31 24-32 [place] 388371-08-08 07:30:00 Test Item Value Reference Range Interpretation Comments AGAP (test code = AGAP) 10.5 10.0-20.0 [place] 388371-08-08 07:30:00 Test Item Value Reference Range Interpretation Comments Calcium Lvl (test code = Calcium Lvl) 7.9 8.5-10.5 [place] 388371-08-08 07:30:00 Test Item Value Reference Range Interpretation Comments eGFR (test code = eGFR) 13 [place] 388371-08-08 07:30:00 Test Item Value Reference Range Interpretation Comments Magnesium Lvl (test code = Magnesium 2.2 1.8-2.4 Lvl) [place] 388371-08-08 07:30:00 Test Item Value Reference Range Interpretation Comments Phosphorus (test code = Phosphorus) 4.4 2.5-4.5 [place] 876111-08-08 07:30:00 Test Item Value Reference Range Interpretation Comments WBC (test code = WBC) 2.3 3.7-10.4 [place] 876111-08-08 07:30:00 Test Item Value Reference Range Interpretation Comments RBC (test code = RBC) 2.88 4.20-5.40 [place] 876111-08-08 07:30:00 Test Item Value Reference Range Interpretation Comments Hgb (test code = Hgb) 8.6 12.0-16.0 [place] [address]-08-08 07:30:00 Test Item Value Reference Range Interpretation Comments Hct (test code = Hct) 26.6 36.0-48.0 [place] 876111-08-08 07:30:00 Test Item Value Reference Range Interpretation Comments MCV (test code = MCV) 92.2 80.0-98.0 [facility]anoKvulbukWZHBLGSCZW1091-94-61 07:30:00 Test Item Value Reference Range Interpretation Comments MCH (test code = MCH) 29.8 pg 27.0-31.0 [facility]anoPlrpafjMVDQSPAHCS0008-18-98 07:30:00 Test Item Value Reference Range Interpretation Comments MCHC (test code = MCHC) 32.4 32.0-36.0 [facility]anoSeohgxzEHQPRRIQAZ4913-94-96 07:30:00 Test Item Value Reference Range Interpretation Comments RDW (test code = RDW) 19.7 11.5-14.5 [facility]anoSzlfncyIALXKNMXVB1154-81-77 07:30:00 Test Item Value Reference Range Interpretation Comments Platelet (test code = Platelet) 83 133-450 [facility]anoVsocmpqETOCLFASFK4866-63-43 07:30:00 Test Item Value Reference Range Interpretation Comments MPV (test code = MPV) 10.2 7.4-10.4 [facility]anoDqplwroCPIURFWOSO8833-16-04 07:30:00 Test Item Value Reference Range Interpretation Comments Segs (test code = Segs) 64.0 45.0-75.0 [facility]anoLhyjfonXZSILLWOZH5994-95-40 07:30:00 Test Item Value Reference Range Interpretation Comments Lymphocytes (test code = Lymphocytes) 24.1 20.0-40.0 [facility]anoHrvjivhZPSNZQDAYJ3362-57-81 07:30:00 Test Item Value Reference Range Interpretation Comments Monocytes (test code = Monocytes) 7.0 2.0-12.0 [facility]anoTwgmblsNSNERELXUL4944-24-34 07:30:00 Test Item Value Reference Range Interpretation Comments Eosinophils (test code = 3.7 See_Comment [A utomated message] The Eosinophils) system which ge nerated this result tra nsmitted reference range : <=4.0. The reference r leo was not used to int erpret this result as normal/abnormal . [facility]anoUloyzcyZPHHAHNRNK0563-67-76 07:30:00 Test Item Value Reference Range Interpretation Comments Basophils (test code = 1.2 See_Comment [Aut omated message] The Basophils) system which ge nerated this result tra nsmitted reference range : <=1.0. The reference r leo was not used to int erpret this result as normal/abnormal . [place] [address]-08-08 07:30:00 Test Item Value Reference Range Interpretation Comments Neutrophils # (test code = Neutrophils 1.5 1.5-8.1 #) [place] 876111-08-08 07:30:00 Test Item Value Reference Range Interpretation Comments Lymphocytes # (test code = Lymphocytes 0.6 1.0-5.5 #) [place] 876111-08-08 07:30:00 Test Item Value Reference Range Interpretation Comments Monocytes # (test code 0.2 See_Comment [Aut omated message] The = Monocytes #) system which generated this result tra nsmitted reference range : <=0.8. The reference r leo was not used to int erpret this result as normal/abnormal . [place] [address]-08-08 07:30:00 Test Item Value Reference Range Interpretation Comments Eosinophils # (test code 0.1 See_Comment [A utomated message] The = Eosinophils #) system whic h generated this result tra nsmitted reference range : <=0.5. The reference r leo was not used to int erpret this result as normal/abnormal . [place] 388371-08-07 09:32:00 Test Item Value Reference Range Interpretation Comments Glucose Lvl (test code = Glucose Lvl) 59 70-99 [place] 388371-08-07 09:32:00 Test Item Value Reference Range Interpretation Comments BUN (test code = BUN) 11 7-22 [place] 388371-08-07 09:32:00 Test Item Value Reference Range Interpretation Comments Creatinine Lvl (test code = Creatinine 2.75 0.50-1.40 Lvl) [place] 388371-08-07 09:32:00 Test Item Value Reference Range Interpretation Comments Sodium Lvl (test code = Sodium Lvl) 138 135-145 [place] 388371-08-07 09:32:00 Test Item Value Reference Range Interpretation Comments Potassium Lvl (test code = Potassium 4.1 3.5-5.1 Lvl) [place] 388371-08-07 09:32:00 Test Item Value Reference Range Interpretation Comments Chloride Lvl (test code = Chloride Lvl) 104 95-109 [place] 388371-08-07 09:32:00 Test Item Value Reference Range Interpretation Comments CO2 (test code = CO2) 29 24-32 [place] 388371-08-07 09:32:00 Test Item Value Reference Range Interpretation Comments Calcium Lvl (test code = Calcium Lvl) 8.3 8.5-10.5 [place] 388371-08-07 09:32:00 Test Item Value Reference Range Interpretation Comments AGAP (test code = AGAP) 9.1 10.0-20.0 [place] [address]-08-07 09:32:00 Test Item Value Reference Range Interpretation Comments eGFR (test code = eGFR) 21 [place] 388371-08-07 09:32:00 Test Item Value Reference Range Interpretation Comments Magnesium Lvl (test code = Magnesium 2.2 1.8-2.4 Lvl) [place] 388371-08-07 09:32:00 Test Item Value Reference Range Interpretation Comments Phosphorus (test code = Phosphorus) 3.9 2.5-4.5 [place] 876111-08-07 09:32:00 Test Item Value Reference Range Interpretation Comments WBC (test code = WBC) 2.3 3.7-10.4 [place] [address]-08-07 09:32:00 Test Item Value Reference Range Interpretation Comments RBC (test code = RBC) 2.78 4.20-5.40 [place] 876111-08-07 09:32:00 Test Item Value Reference Range Interpretation Comments Hgb (test code = Hgb) 8.4 12.0-16.0 [place] 876111-08-07 09:32:00 Test Item Value Reference Range Interpretation Comments Hct (test code = Hct) 25.2 36.0-48.0 [place] [address]-08-07 09:32:00 Test Item Value Reference Range Interpretation Comments MCV (test code = MCV) 90.5 80.0-98.0 [place] [address]-08-07 09:32:00 Test Item Value Reference Range Interpretation Comments MCH (test code = MCH) 30.4 pg 27.0-31.0 [place] [address]-08-07 09:32:00 Test Item Value Reference Range Interpretation Comments MCHC (test code = MCHC) 33.5 32.0-36.0 [place] [address]-08-07 09:32:00 Test Item Value Reference Range Interpretation Comments RDW (test code = RDW) 19.0 11.5-14.5 [place] [address]-08-07 09:32:00 Test Item Value Reference Range Interpretation Comments Platelet (test code = Platelet) 87 133-450 [place] 876111-08-07 09:32:00 Test Item Value Reference Range Interpretation Comments MPV (test code = MPV) 10.0 7.4-10.4 [place] 388371-08-07 09:32:00 Test Item Value Reference Range Interpretation Comments Glucose Lvl (test code = Glucose Lvl) 59 70-99 [place] 388371-08-07 09:32:00 Test Item Value Reference Range Interpretation Comments BUN (test code = BUN) 11 7-22 [place] 388371-08-07 09:32:00 Test Item Value Reference Range Interpretation Comments Creatinine Lvl (test code = Creatinine 2.75 0.50-1.40 Lvl) [place] 388371-08-07 09:32:00 Test Item Value Reference Range Interpretation Comments Sodium Lvl (test code = Sodium Lvl) 138 135-145 [place] 388371-08-07 09:32:00 Test Item Value Reference Range Interpretation Comments Potassium Lvl (test code = Potassium 4.1 3.5-5.1 Lvl) [place] 388371-08-07 09:32:00 Test Item Value Reference Range Interpretation Comments Chloride Lvl (test code = Chloride Lvl) 104 95-109 [place] 388371-08-07 09:32:00 Test Item Value Reference Range Interpretation Comments CO2 (test code = CO2) 29 24-32 [place] 388371-08-07 09:32:00 Test Item Value Reference Range Interpretation Comments Calcium Lvl (test code = Calcium Lvl) 8.3 8.5-10.5 [place] 388371-08-07 09:32:00 Test Item Value Reference Range Interpretation Comments AGAP (test code = AGAP) 9.1 10.0-20.0 [place] 388371-08-07 09:32:00 Test Item Value Reference Range Interpretation Comments eGFR (test code = eGFR) 21 [facility]2021-08-07 09:32:00 Test Item Value Reference Range Interpretation Comments Magnesium Lvl (test code = Magnesium 2.2 1.8-2.4 Lvl) [facility]2021-08-07 09:32:00 Test Item Value Reference Range Interpretation Comments Phosphorus (test code = Phosphorus) 3.9 2.5-4.5 [place] 876111-08-07 09:32:00 Test Item Value Reference Range Interpretation Comments WBC (test code = WBC) 2.3 3.7-10.4 [place] 876111-08-07 09:32:00 Test Item Value Reference Range Interpretation Comments RBC (test code = RBC) 2.78 4.20-5.40 [place] 876111-08-07 09:32:00 Test Item Value Reference Range Interpretation Comments Hgb (test code = Hgb) 8.4 12.0-16.0 [place] 876111-08-07 09:32:00 Test Item Value Reference Range Interpretation Comments Hct (test code = Hct) 25.2 36.0-48.0 [place] 876111-08-07 09:32:00 Test Item Value Reference Range Interpretation Comments MCV (test code = MCV) 90.5 80.0-98.0 [place] 876111-08-07 09:32:00 Test Item Value Reference Range Interpretation Comments MCH (test code = MCH) 30.4 pg 27.0-31.0 [place] 876111-08-07 09:32:00 Test Item Value Reference Range Interpretation Comments MCHC (test code = MCHC) 33.5 32.0-36.0 [place] 876111-08-07 09:32:00 Test Item Value Reference Range Interpretation Comments RDW (test code = RDW) 19.0 11.5-14.5 [place] 876111-08-07 09:32:00 Test Item Value Reference Range Interpretation Comments Platelet (test code = Platelet) 87 133-450 [place] 876111-08-07 09:32:00 Test Item Value Reference Range Interpretation Comments MPV (test code = MPV) 10.0 7.4-10.4 [place] 388371-08-07 09:32:00 Test Item Value Reference Range Interpretation Comments Glucose Lvl (test code = Glucose Lvl) 59 70-99 [place] 388371-08-07 09:32:00 Test Item Value Reference Range Interpretation Comments BUN (test code = BUN) 11 7-22 [place] 388371-08-07 09:32:00 Test Item Value Reference Range Interpretation Comments Creatinine Lvl (test code = Creatinine 2.75 0.50-1.40 Lvl) [place] 388371-08-07 09:32:00 Test Item Value Reference Range Interpretation Comments Sodium Lvl (test code = Sodium Lvl) 138 135-145 [place] 388371-08-07 09:32:00 Test Item Value Reference Range Interpretation Comments Potassium Lvl (test code = Potassium 4.1 3.5-5.1 Lvl) [place] 388371-08-07 09:32:00 Test Item Value Reference Range Interpretation Comments Chloride Lvl (test code = Chloride Lvl) 104 95-109 [facility]2021-08-07 09:32:00 Test Item Value Reference Range Interpretation Comments CO2 (test code = CO2) 29 24-32 [place] 388371-08-07 09:32:00 Test Item Value Reference Range Interpretation Comments Calcium Lvl (test code = Calcium Lvl) 8.3 8.5-10.5 [place] 388371-08-07 09:32:00 Test Item Value Reference Range Interpretation Comments AGAP (test code = AGAP) 9.1 10.0-20.0 [place] 388371-08-07 09:32:00 Test Item Value Reference Range Interpretation Comments eGFR (test code = eGFR) 21 [place] 388371-08-07 09:32:00 Test Item Value Reference Range Interpretation Comments Magnesium Lvl (test code = Magnesium 2.2 1.8-2.4 Lvl) [place] 388371-08-07 09:32:00 Test Item Value Reference Range Interpretation Comments Phosphorus (test code = Phosphorus) 3.9 2.5-4.5 [facility] 09:32:00 Test Item Value Reference Range Interpretation Comments WBC (test code = WBC) 2.3 3.7-10.4 [place] 876111-08-07 09:32:00 Test Item Value Reference Range Interpretation Comments RBC (test code = RBC) 2.78 4.20-5.40 [place] 876111-08-07 09:32:00 Test Item Value Reference Range Interpretation Comments Hgb (test code = Hgb) 8.4 12.0-16.0 [place] 876111-08-07 09:32:00 Test Item Value Reference Range Interpretation Comments Hct (test code = Hct) 25.2 36.0-48.0 [place] 876111-08-07 09:32:00 Test Item Value Reference Range Interpretation Comments MCV (test code = MCV) 90.5 80.0-98.0 [place] 876111-08-07 09:32:00 Test Item Value Reference Range Interpretation Comments MCH (test code = MCH) 30.4 pg 27.0-31.0 [place] 876111-08-07 09:32:00 Test Item Value Reference Range Interpretation Comments MCHC (test code = MCHC) 33.5 32.0-36.0 [place] 876111-08-07 09:32:00 Test Item Value Reference Range Interpretation Comments RDW (test code = RDW) 19.0 11.5-14.5 [facility]KpppmfzHEUPRQRAUF4081-61-38 09:32:00 Test Item Value Reference Range Interpretation Comments Platelet (test code = Platelet) 87 133-450 [facility]NdvoqpiNWHZMTFNGI0910-81-97 09:32:00 Test Item Value Reference Range Interpretation Comments MPV (test code = MPV) 10.0 7.4-10.4 [facility]2021-08-07 09:32:00 Test Item Value Reference Range Interpretation Comments Glucose Lvl (test code = Glucose Lvl) 59 70-99 [place] 388371-08-07 09:32:00 Test Item Value Reference Range Interpretation Comments BUN (test code = BUN) 11 7-22 [place] 388371-08-07 09:32:00 Test Item Value Reference Range Interpretation Comments Creatinine Lvl (test code = Creatinine 2.75 0.50-1.40 Lvl) [facility]2021-08-07 09:32:00 Test Item Value Reference Range Interpretation Comments Sodium Lvl (test code = Sodium Lvl) 138 135-145 [place] 388371-08-07 09:32:00 Test Item Value Reference Range Interpretation Comments Potassium Lvl (test code = Potassium 4.1 3.5-5.1 Lvl) [place] 388371-08-07 09:32:00 Test Item Value Reference Range Interpretation Comments Chloride Lvl (test code = Chloride Lvl) 104 95-109 [place] 388371-08-07 09:32:00 Test Item Value Reference Range Interpretation Comments CO2 (test code = CO2) 29 24-32 [place] 388371-08-07 09:32:00 Test Item Value Reference Range Interpretation Comments Calcium Lvl (test code = Calcium Lvl) 8.3 8.5-10.5 [place] [address]-08-07 09:32:00 Test Item Value Reference Range Interpretation Comments AGAP (test code = AGAP) 9.1 10.0-20.0 [place] 388371-08-07 09:32:00 Test Item Value Reference Range Interpretation Comments eGFR (test code = eGFR) 21 [place] 388371-08-07 09:32:00 Test Item Value Reference Range Interpretation Comments Magnesium Lvl (test code = Magnesium 2.2 1.8-2.4 Lvl) [place] 388371-08-07 09:32:00 Test Item Value Reference Range Interpretation Comments Phosphorus (test code = Phosphorus) 3.9 2.5-4.5 [place] 876111-08-07 09:32:00 Test Item Value Reference Range Interpretation Comments WBC (test code = WBC) 2.3 3.7-10.4 [place] [address]-08-07 09:32:00 Test Item Value Reference Range Interpretation Comments RBC (test code = RBC) 2.78 4.20-5.40 [place] 876111-08-07 09:32:00 Test Item Value Reference Range Interpretation Comments Hgb (test code = Hgb) 8.4 12.0-16.0 [place] [address]-08-07 09:32:00 Test Item Value Reference Range Interpretation Comments Hct (test code = Hct) 25.2 36.0-48.0 [place] [address]-08-07 09:32:00 Test Item Value Reference Range Interpretation Comments MCV (test code = MCV) 90.5 80.0-98.0 [place] [address]-08-07 09:32:00 Test Item Value Reference Range Interpretation Comments MCH (test code = MCH) 30.4 pg 27.0-31.0 [place] [address]-08-07 09:32:00 Test Item Value Reference Range Interpretation Comments MCHC (test code = MCHC) 33.5 32.0-36.0 [place] [address]-08-07 09:32:00 Test Item Value Reference Range Interpretation Comments RDW (test code = RDW) 19.0 11.5-14.5 [place] [address]-08-07 09:32:00 Test Item Value Reference Range Interpretation Comments Platelet (test code = Platelet) 87 133-450 [place] 876111-08-07 09:32:00 Test Item Value Reference Range Interpretation Comments MPV (test code = MPV) 10.0 7.4-10.4 [place] 388371-08-07 09:32:00 Test Item Value Reference Range Interpretation Comments Glucose Lvl (test code = Glucose Lvl) 59 70-99 [place] 388371-08-07 09:32:00 Test Item Value Reference Range Interpretation Comments BUN (test code = BUN) 11 7-22 [place] 388371-08-07 09:32:00 Test Item Value Reference Range Interpretation Comments Creatinine Lvl (test code = Creatinine 2.75 0.50-1.40 Lvl) [place] 388371-08-07 09:32:00 Test Item Value Reference Range Interpretation Comments Sodium Lvl (test code = Sodium Lvl) 138 135-145 [place] 388371-08-07 09:32:00 Test Item Value Reference Range Interpretation Comments Potassium Lvl (test code = Potassium 4.1 3.5-5.1 Lvl) [place] 388371-08-07 09:32:00 Test Item Value Reference Range Interpretation Comments Chloride Lvl (test code = Chloride Lvl) 104 95-109 [place] 388371-08-07 09:32:00 Test Item Value Reference Range Interpretation Comments CO2 (test code = CO2) 29 24-32 [place] 388371-08-07 09:32:00 Test Item Value Reference Range Interpretation Comments Calcium Lvl (test code = Calcium Lvl) 8.3 8.5-10.5 [place] 388371-08-07 09:32:00 Test Item Value Reference Range Interpretation Comments AGAP (test code = AGAP) 9.1 10.0-20.0 [place] 388371-08-07 09:32:00 Test Item Value Reference Range Interpretation Comments eGFR (test code = eGFR) 21 [place] 388371-08-07 09:32:00 Test Item Value Reference Range Interpretation Comments Magnesium Lvl (test code = Magnesium 2.2 1.8-2.4 Lvl) [place] 388371-08-07 09:32:00 Test Item Value Reference Range Interpretation Comments Phosphorus (test code = Phosphorus) 3.9 2.5-4.5 [place] 876111-08-07 09:32:00 Test Item Value Reference Range Interpretation Comments WBC (test code = WBC) 2.3 3.7-10.4 [place] 876111-08-07 09:32:00 Test Item Value Reference Range Interpretation Comments RBC (test code = RBC) 2.78 4.20-5.40 [place] 876111-08-07 09:32:00 Test Item Value Reference Range Interpretation Comments Hgb (test code = Hgb) 8.4 12.0-16.0 [place] 876111-08-07 09:32:00 Test Item Value Reference Range Interpretation Comments Hct (test code = Hct) 25.2 36.0-48.0 [place] 876111-08-07 09:32:00 Test Item Value Reference Range Interpretation Comments MCV (test code = MCV) 90.5 80.0-98.0 [place] [address]-08-07 09:32:00 Test Item Value Reference Range Interpretation Comments MCH (test code = MCH) 30.4 pg 27.0-31.0 [place] 876111-08-07 09:32:00 Test Item Value Reference Range Interpretation Comments MCHC (test code = MCHC) 33.5 32.0-36.0 [facility]UITGSRPMS6305-85-97 09:32:00 Test Item Value Reference Range Interpretation Comments RDW (test code = RDW) 19.0 11.5-14.5 [facility]anoNqouklhFAGMQXHFUE8607-02-58 09:32:00 Test Item Value Reference Range Interpretation Comments Platelet (test code = Platelet) 87 133-450 [facility]anoVdbfzcgSEAEARXAUR6819-98-44 09:32:00 Test Item Value Reference Range Interpretation Comments MPV (test code = MPV) 10.0 7.4-10.4 [facility] NEICPZJ9471-33-41 05:33:00 Test Item Value Reference Range Interpretation Comments ABO/Rh (test code = ABO/Rh) B POS [facility] ITVYHNA5751-03-43 05:33:00 Test Item Value Reference Range Interpretation Comments Antibody Scrn (test Negative (01/24/21 12:33 code = Antibody Scrn) AM) [facility]anoSuxvrqgBEVJKFSSCX5601-90-55 05:33:00 Test Item Value Reference Range Interpretation Comments Segs (test code = Segs) 60.2 45.0-75.0 [facility]anoYeejlygZCQLOODZKJ8603-13-08 05:33:00 Test Item Value Reference Range Interpretation Comments Lymphocytes (test code = Lymphocytes) 28.6 20.0-40.0 [facility]anoBdldrpvMZGKESUTLF4695-10-83 05:33:00 Test Item Value Reference Range Interpretation Comments Monocytes (test code = Monocytes) 5.8 2.0-12.0 [facility]anoTvtflbsEIDUKMEZHQ9047-13-85 05:33:00 Test Item Value Reference Range Interpretation Comments Eosinophils (test code = 4.2 See_Comment [A utomated message] The Eosinophils) system which ge nerated this result tra nsmitted reference range : <=4.0. The reference r leo was not used to int erpret this result as normal/abnormal . [facility]anoKvmcjcjGZXJMBLTEU9254-42-40 05:33:00 Test Item Value Reference Range Interpretation Comments Basophils (test code = 1.2 See_Comment [Aut omated message] The Basophils) system which ge nerated this result tra nsmitted reference range : <=1.0. The reference r leo was not used to int erpret this result as normal/abnormal . [facility]anoMbngnngUMPJHKGFWN2176-80-38 05:33:00 Test Item Value Reference Range Interpretation Comments Neutrophils # (test code = Neutrophils 2.2 1.5-8.1 #) [facility]anoYvjtqyjHCIROQNOVG4111-05-94 05:33:00 Test Item Value Reference Range Interpretation Comments Lymphocytes # (test code = Lymphocytes 1.1 1.0-5.5 #) [facility]anoOadsconXGSYHYQRZS1443-10-46 05:33:00 Test Item Value Reference Range Interpretation Comments Monocytes # (test code 0.2 See_Comment [Aut omated message] The = Monocytes #) system which generated this result tra nsmitted reference range : <=0.8. The reference r leo was not used to int erpret this result as normal/abnormal . [facility]anoPfggdzmYBYXIBHQWQ3517-17-77 05:33:00 Test Item Value Reference Range Interpretation Comments Eosinophils # (test code 0.2 See_Comment [A utomated message] The = Eosinophils #) system whic h generated this result tra nsmitted reference range : <=0.5. The reference r leo was not used to int erpret this result as normal/abnormal . [facility]2021-08-06 05:33:00 Test Item Value Reference Range Interpretation Comments ABO/Rh (test code = ABO/Rh) B POS [facility]2021-08-06 05:33:00 Test Item Value Reference Range Interpretation Comments Antibody Scrn (test Negative (01/24/21 12:33 code = Antibody Scrn) AM) [facility]anoDohppekAAHPYFYNCZ9870-42-75 05:33:00 Test Item Value Reference Range Interpretation Comments Segs (test code = Segs) 60.2 45.0-75.0 [facility]anoZjzqchbAFSTNVPORF7514-41-21 05:33:00 Test Item Value Reference Range Interpretation Comments Lymphocytes (test code = Lymphocytes) 28.6 20.0-40.0 [facility]anoQibdvuaPYNJXGHEDS5553-17-81 05:33:00 Test Item Value Reference Range Interpretation Comments Monocytes (test code = Monocytes) 5.8 2.0-12.0 [facility]anoOovhxduQYRFDWLNHM7300-12-91 05:33:00 Test Item Value Reference Range Interpretation Comments Eosinophils (test code = 4.2 See_Comment [A utomated message] The Eosinophils) system which ge nerated this result tra nsmitted reference range : <=4.0. The reference r leo was not used to int erpret this result as normal/abnormal . [facility] 05:33:00 Test Item Value Reference Range Interpretation Comments Basophils (test code = 1.2 See_Comment [Aut omated message] The Basophils) system which ge nerated this result tra nsmitted reference range : <=1.0. The reference r leo was not used to int erpret this result as normal/abnormal . [facility]anoZnmfiqiJJAXXWUZYZ8387-50-40 05:33:00 Test Item Value Reference Range Interpretation Comments Neutrophils # (test code = Neutrophils 2.2 1.5-8.1 #) [facility]anoIcgjcmfBAUKEKETOH1250-05-48 05:33:00 Test Item Value Reference Range Interpretation Comments Lymphocytes # (test code = Lymphocytes 1.1 1.0-5.5 #) [facility]anoKasgocgCDVLPEHRMP6487-53-67 05:33:00 Test Item Value Reference Range Interpretation Comments Monocytes # (test code 0.2 See_Comment [Aut omated message] The = Monocytes #) system which generated this result tra nsmitted reference range : <=0.8. The reference r leo was not used to int erpret this result as normal/abnormal . [facility]anoAraeueqTGXJEVKUQR2405-72-35 05:33:00 Test Item Value Reference Range Interpretation Comments Eosinophils # (test code 0.2 See_Comment [A utomated message] The = Eosinophils #) system whic h generated this result tra nsmitted reference range : <=0.5. The reference r leo was not used to int erpret this result as normal/abnormal . [facility] ENGTUKG4897-97-74 05:33:00 Test Item Value Reference Range Interpretation Comments ABO/Rh (test code = ABO/Rh) B POS [facility] [employer] JZLNCRJ0495-90-80 05:33:00 Test Item Value Reference Range Interpretation Comments Antibody Scrn (test Negative (01/24/21 12:33 code = Antibody Scrn) AM) [facility]anoYonfubpINNCQNNDNE3699-38-76 05:33:00 Test Item Value Reference Range Interpretation Comments Segs (test code = Segs) 60.2 45.0-75.0 [facility]anoTljepzbFXTIXUGJVV2129-92-55 05:33:00 Test Item Value Reference Range Interpretation Comments Lymphocytes (test code = Lymphocytes) 28.6 20.0-40.0 [facility]anoRncctzkHDINSCQOZN2244-82-48 05:33:00 Test Item Value Reference Range Interpretation Comments Monocytes (test code = Monocytes) 5.8 2.0-12.0 [facility]anoUcewvhnVWKONQIIVY3153-24-90 05:33:00 Test Item Value Reference Range Interpretation Comments Eosinophils (test code = 4.2 See_Comment [A utomated message] The Eosinophils) system which ge nerated this result tra nsmitted reference range : <=4.0. The reference r leo was not used to int erpret this result as normal/abnormal . [facility]anoFkyeitgSNFXVAAAQV9261-73-88 05:33:00 Test Item Value Reference Range Interpretation Comments Basophils (test code = 1.2 See_Comment [Aut omated message] The Basophils) system which ge nerated this result tra nsmitted reference range : <=1.0. The reference r leo was not used to int erpret this result as normal/abnormal . [facility]anoDshvxjeEOGMSXPIDJ4416-72-14 05:33:00 Test Item Value Reference Range Interpretation Comments Neutrophils # (test code = Neutrophils 2.2 1.5-8.1 #) [facility]anoMmucgdeVJLXXDIPDD4209-60-20 05:33:00 Test Item Value Reference Range Interpretation Comments Lymphocytes # (test code = Lymphocytes 1.1 1.0-5.5 #) [facility]anoMvxykcgLLDIUVIEIY4899-60-55 05:33:00 Test Item Value Reference Range Interpretation Comments Monocytes # (test code 0.2 See_Comment [Aut omated message] The = Monocytes #) system which generated this result tra nsmitted reference range : <=0.8. The reference r leo was not used to int erpret this result as normal/abnormal . [facility]anoWinxtqvKRJUQDSXIX3820-27-74 05:33:00 Test Item Value Reference Range Interpretation Comments Eosinophils # (test code 0.2 See_Comment [A utomated message] The = Eosinophils #) system whic h generated this result tra nsmitted reference range : <=0.5. The reference r leo was not used to int erpret this result as normal/abnormal . [facility] AVFPSHH5838-91-03 05:33:00 Test Item Value Reference Range Interpretation Comments ABO/Rh (test code = ABO/Rh) B POS [facility] HZXZNFV2653-61-91 05:33:00 Test Item Value Reference Range Interpretation Comments Antibody Scrn (test Negative (01/24/21 12:33 code = Antibody Scrn) AM) [facility]anoHrlafrfPTMEJBQEZE9739-55-62 05:33:00 Test Item Value Reference Range Interpretation Comments Segs (test code = Segs) 60.2 45.0-75.0 [facility]anoXykkdzuKJFUWLPIAO5198-23-20 05:33:00 Test Item Value Reference Range Interpretation Comments Lymphocytes (test code = Lymphocytes) 28.6 20.0-40.0 [facility]anoEsawytyVUOUGKSVZM7813-89-93 05:33:00 Test Item Value Reference Range Interpretation Comments Monocytes (test code = Monocytes) 5.8 2.0-12.0 [facility]anoCsxtcdsJOTSZPBWUX4589-27-82 05:33:00 Test Item Value Reference Range Interpretation Comments Eosinophils (test code = 4.2 See_Comment [A utomated message] The Eosinophils) system which ge nerated this result tra nsmitted reference range : <=4.0. The reference r leo was not used to int erpret this result as normal/abnormal . [facility]anoSeddaxkFVLCZKSWPV7678-85-03 05:33:00 Test Item Value Reference Range Interpretation Comments Basophils (test code = 1.2 See_Comment [Aut omated message] The Basophils) system which ge nerated this result tra nsmitted reference range : <=1.0. The reference r leo was not used to int erpret this result as normal/abnormal . [facility]anoUidkishITTAMYXVJT1345-20-28 05:33:00 Test Item Value Reference Range Interpretation Comments Neutrophils # (test code = Neutrophils 2.2 1.5-8.1 #) [facility]anoVhltowhJJTXBOYEQL2871-06-68 05:33:00 Test Item Value Reference Range Interpretation Comments Lymphocytes # (test code = Lymphocytes 1.1 1.0-5.5 #) [facility]anoEpwajqaKPYTNKMPBN6596-43-58 05:33:00 Test Item Value Reference Range Interpretation Comments Monocytes # (test code 0.2 See_Comment [Aut omated message] The = Monocytes #) system which generated this result tra nsmitted reference range : <=0.8. The reference r leo was not used to int erpret this result as normal/abnormal . [facility]anoGqqnzzhCZYLDMUFSV5807-50-31 05:33:00 Test Item Value Reference Range Interpretation Comments Eosinophils # (test code 0.2 See_Comment [A utomated message] The = Eosinophils #) system whic h generated this result tra nsmitted reference range : <=0.5. The reference r leo was not used to int erpret this result as normal/abnormal . [facility] IHSZFNA0767-64-39 05:33:00 Test Item Value Reference Range Interpretation Comments ABO/Rh (test code = ABO/Rh) B POS [facility] QSFESFT0952-24-76 05:33:00 Test Item Value Reference Range Interpretation Comments Antibody Scrn (test Negative (01/24/21 12:33 code = Antibody Scrn) AM) [facility]anoZzmupmtEBTFXLDLAT3967-22-13 05:33:00 Test Item Value Reference Range Interpretation Comments Segs (test code = Segs) 60.2 45.0-75.0 [facility]anoHfvaxmvMSQZVHAKRR6389-35-86 05:33:00 Test Item Value Reference Range Interpretation Comments Lymphocytes (test code = Lymphocytes) 28.6 20.0-40.0 [facility]anoHgcdzrnHCFNJGDGML6665-56-42 05:33:00 Test Item Value Reference Range Interpretation Comments Monocytes (test code = Monocytes) 5.8 2.0-12.0 [facility]anoFenhrvvNIDLZBWHUS0882-26-91 05:33:00 Test Item Value Reference Range Interpretation Comments Eosinophils (test code = 4.2 See_Comment [A utomated message] The Eosinophils) system which ge nerated this result tra nsmitted reference range : <=4.0. The reference r leo was not used to int erpret this result as normal/abnormal . [facility]anoBzmjpcmSVRUYZYGNH9243-86-61 05:33:00 Test Item Value Reference Range Interpretation Comments Basophils (test code = 1.2 See_Comment [Aut omated message] The Basophils) system which ge nerated this result tra nsmitted reference range : <=1.0. The reference r leo was not used to int erpret this result as normal/abnormal . [facility]anoBnvhjykAEHSTNOXYA4830-25-63 05:33:00 Test Item Value Reference Range Interpretation Comments Neutrophils # (test code = Neutrophils 2.2 1.5-8.1 #) [facility]anoWtiblwhDBGMQTAEXC1182-73-96 05:33:00 Test Item Value Reference Range Interpretation Comments Lymphocytes # (test code = Lymphocytes 1.1 1.0-5.5 #) [facility]anoRryiculADYSXPLURB6907-48-63 05:33:00 Test Item Value Reference Range Interpretation Comments Monocytes # (test code 0.2 See_Comment [Aut omated message] The = Monocytes #) system which generated this result tra nsmitted reference range : <=0.8. The reference r leo was not used to int erpret this result as normal/abnormal . [facility]anoJxsrpseAKTNLAWUJH4572-48-16 05:33:00 Test Item Value Reference Range Interpretation Comments Eosinophils # (test code 0.2 See_Comment [A utomated message] The = Eosinophils #) system whic h generated this result tra nsmitted reference range : <=0.5. The reference r leo was not used to int erpret this result as normal/abnormal . [facility]anoFteivhoRCSFKWAPPT5080-40-41 05:53:00 Test Item Value Reference Range Interpretation Comments PT (test code = PT) 14.4 s 12.0-14.7 [facility]anoMqupsydJIBDOZVWUL7960-83-34 05:53:00 Test Item Value Reference Range Interpretation Comments INR (test code = INR) 1.13 1 0.85-1.17 [facility]anoVadpnwqTJFRSDEKET5944-93-56 05:53:00 Test Item Value Reference Range Interpretation Comments Fibrinogen Lvl (test code = Fibrinogen 319 230-510 Lvl) [facility]anoTgyyrheXIJGRTNVLQ5306-88-69 05:53:00 Test Item Value Reference Range Interpretation Comments Thrombin Time (test code = Thrombin 15.9 s 15.0-21.2 Time) [facility]anoVxujtwaEYXIKPDKME0292-62-09 05:53:00 Test Item Value Reference Range Interpretation Comments PTT (test code = PTT) 47.0 s 22.9-35.8 [place] 876111-08-05 05:53:00 Test Item Value Reference Range Interpretation Comments D-Dimer (test code = D-Dimer) 0.91 [place] 876111-08-05 05:53:00 Test Item Value Reference Range Interpretation Comments Basophils # (test code 0.1 See_Comment [Aut omated message] The = Basophils #) system which generated this result tra nsmitted reference range : <=0.2. The reference r leo was not used to int erpret this result as normal/abnormal . [facility]2021-08-05 05:53:00 Test Item Value Reference Range Interpretation Comments Ca Ion WB (test code = Ca Ion WB) 1.24 1.05-1.25 [facility] NLBSATJ3349-94-96 05:53:00 Test Item Value Reference Range Interpretation Comments Ca Norm WB (test code = Ca Norm WB) 1.25 1.05-1.25 [facility]anoQuhlamwHOGLQUSJIE2110-16-08 05:53:00 Test Item Value Reference Range Interpretation Comments PT (test code = PT) 14.4 s 12.0-14.7 [facility]anoSzwkdcnEFOJXVUXMF8155-92-49 05:53:00 Test Item Value Reference Range Interpretation Comments INR (test code = INR) 1.13 1 0.85-1.17 [facility]anoPwbrvwgSMQOMYRDHX0171-98-98 05:53:00 Test Item Value Reference Range Interpretation Comments Fibrinogen Lvl (test code = Fibrinogen 319 230-510 Lvl) [facility]anoKdsuugkEEIKZGVUVC5669-65-09 05:53:00 Test Item Value Reference Range Interpretation Comments Thrombin Time (test code = Thrombin 15.9 s 15.0-21.2 Time) [facility]anoDgziyxpOYNXURWIZH7198-30-65 05:53:00 Test Item Value Reference Range Interpretation Comments PTT (test code = PTT) 47.0 s 22.9-35.8 [facility]anoSnsxwnaDREIXSFOAN1501-96-09 05:53:00 Test Item Value Reference Range Interpretation Comments D-Dimer (test code = D-Dimer) 0.91 [place] 876111-08-05 05:53:00 Test Item Value Reference Range Interpretation Comments Basophils # (test code 0.1 See_Comment [Aut omated message] The = Basophils #) system which generated this result tra nsmitted reference range : <=0.2. The reference r leo was not used to int erpret this result as normal/abnormal . [facility]2021-08-05 05:53:00 Test Item Value Reference Range Interpretation Comments Ca Ion WB (test code = Ca Ion WB) 1.24 1.05-1.25 [facility]2021-08-05 05:53:00 Test Item Value Reference Range Interpretation Comments Ca Norm WB (test code = Ca Norm WB) 1.25 1.05-1.25 [facility]anoNnycomdDBMUSNLOOH4256-69-40 05:53:00 Test Item Value Reference Range Interpretation Comments PT (test code = PT) 14.4 s 12.0-14.7 [facility]anoGjiqxtmUICQCWIPOZ6132-18-94 05:53:00 Test Item Value Reference Range Interpretation Comments INR (test code = INR) 1.13 1 0.85-1.17 [facility] PlanoZkmbopsKDIRHXXGRE8527-06-79 05:53:00 Test Item Value Reference Range Interpretation Comments Fibrinogen Lvl (test code = Fibrinogen 319 230-510 Lvl) [facility]anoSnblbvoLTDVHMWVDC9788-98-29 05:53:00 Test Item Value Reference Range Interpretation Comments Thrombin Time (test code = Thrombin 15.9 s 15.0-21.2 Time) [facility]anoBhwqkniJSCHNMXRSW3486-59-10 05:53:00 Test Item Value Reference Range Interpretation Comments PTT (test code = PTT) 47.0 s 22.9-35.8 [facility]anoIpehosgBOFGUEEHWX7931-20-07 05:53:00 Test Item Value Reference Range Interpretation Comments D-Dimer (test code = D-Dimer) 0.91 [facility]anoWndvjkkBSFMYTWYVO4462-95-24 05:53:00 Test Item Value Reference Range Interpretation Comments Basophils # (test code 0.1 See_Comment [Aut omated message] The = Basophils #) system which generated this result tra nsmitted reference range : <=0.2. The reference r leo was not used to int erpret this result as normal/abnormal . [facility]2021-08-05 05:53:00 Test Item Value Reference Range Interpretation Comments Ca Ion WB (test code = Ca Ion WB) 1.24 1.05-1.25 [facility]2021-08-05 05:53:00 Test Item Value Reference Range Interpretation Comments Ca Norm WB (test code = Ca Norm WB) 1.25 1.05-1.25 [facility]anoBbillysTXZKBSTSKI1199-06-04 05:53:00 Test Item Value Reference Range Interpretation Comments PT (test code = PT) 14.4 s 12.0-14.7 [facility]anoNgncyxvNHFXFUCEMV5092-52-57 05:53:00 Test Item Value Reference Range Interpretation Comments INR (test code = INR) 1.13 1 0.85-1.17 [facility]anoNjgiebaYMWWNTLTED4834-26-59 05:53:00 Test Item Value Reference Range Interpretation Comments Fibrinogen Lvl (test code = Fibrinogen 319 230-510 Lvl) [facility]anoHagghlpSFEUSKVDYC0087-40-88 05:53:00 Test Item Value Reference Range Interpretation Comments Thrombin Time (test code = Thrombin 15.9 s 15.0-21.2 Time) [facility]anoJrevjwxVGDFOVVILY3772-59-19 05:53:00 Test Item Value Reference Range Interpretation Comments PTT (test code = PTT) 47.0 s 22.9-35.8 [facility]anoJxpxabsHYDUBMXGOW0512-52-67 05:53:00 Test Item Value Reference Range Interpretation Comments D-Dimer (test code = D-Dimer) 0.91 [facility] PlanoZvnbyfrLFIGAOBZSZ5047-33-34 05:53:00 Test Item Value Reference Range Interpretation Comments Basophils # (test code 0.1 See_Comment [Aut omated message] The = Basophils #) system which generated this result tra nsmitted reference range : <=0.2. The reference r leo was not used to int erpret this result as normal/abnormal . [facility]ATHY[facility] MHECLBJ2921-39-65 05:53:00 Test Item Value Reference Range Interpretation Comments Ca Ion WB (test code = Ca Ion WB) 1.24 1.05-1.25 [facility]ATHY[facility]ID CWBDFGT5859-02-79 05:53:00 Test Item Value Reference Range Interpretation Comments Ca Norm WB (test code = Ca Norm WB) 1.25 1.05-1.25 [place] 876111-08-05 05:53:00 Test Item Value Reference Range Interpretation Comments PT (test code = PT) 14.4 s 12.0-14.7 [facility] PlanoTawsbueBOAITLFBJH9648-65-15 05:53:00 Test Item Value Reference Range Interpretation Comments INR (test code = INR) 1.13 1 0.85-1.17 [facility]anoHfyghzpHHTFLPCYOG0649-82-47 05:53:00 Test Item Value Reference Range Interpretation Comments Fibrinogen Lvl (test code = Fibrinogen 319 230-510 Lvl) [place] [address]-08-05 05:53:00 Test Item Value Reference Range Interpretation Comments Thrombin Time (test code = Thrombin 15.9 s 15.0-21.2 Time) [place] [address]-08-05 05:53:00 Test Item Value Reference Range Interpretation Comments PTT (test code = PTT) 47.0 s 22.9-35.8 [place] [address]-08-05 05:53:00 Test Item Value Reference Range Interpretation Comments D-Dimer (test code = D-Dimer) 0.[address]08-05 05:53:00 Test Item Value Reference Range Interpretation Comments Basophils # (test code 0.1 See_Comment [Aut omated message] The = Basophils #) system which generated this result tra nsmitted reference range : <=0.2. The reference r leo was not used to int erpret this result as normal/abnormal . [place] 702811-08-05 05:53:00 Test Item Value Reference Range Interpretation Comments Ca Ion WB (test code = Ca Ion WB) 1.24 1.05-1.[address]08-05 05:53:00 Test Item Value Reference Range Interpretation Comments Ca Norm WB (test code = Ca Norm WB) 1.25 1.05-1.25 [facility] COVKP7709-74-70 10:09:00 Test Item Value Reference Range Interpretation Comments ALT (test code = ALT) 49 See_Comment [Auto mated message] The system which ge nerated this result transmit rohit reference range : <=65. The reference range was not used to interpr et this result as reji l/abnormal. [facility] [id number] 10:09:00 Test Item Value Reference Range Interpretation Comments Albumin Lvl (test code = Albumin Lvl) 2.8 3.5-5.0 [facility] [id number] 10:09:00 Test Item Value Reference Range Interpretation Comments Alk Phos (test code = Alk Phos) 41 39-136 [facility] [id number] 10:09:00 Test Item Value Reference Range Interpretation Comments Bili Direct (test code 0.2 See_Comment [Aut omated message] The = Bili Direct) system which generated this result tra nsmitted reference range : <=0.3. The reference r leo was not used to int erpret this result as reji l/abnormal. [facility] [id number] 10:09:00 Test Item Value Reference Range Interpretation Comments Bili Total (test code = Bili Total) 0.6 0.2-1.3 [facility] [id number] 10:09:00 Test Item Value Reference Range Interpretation Comments Bili Indirect (test 0.4 See_Comment [Automa rohit message] The code = Bili Indirect) system which generated this result tra nsmitted reference range : <=1.0. The reference r leo was not used to int erpret this result as normal/abnormal . [facility] [id number] 10:09:00 Test Item Value Reference Range Interpretation Comments Total Protein (test code = Total 5.6 6.4-8.4 Protein) [facility] [id number] 10:09:00 Test Item Value Reference Range Interpretation Comments AST (test code = AST) 33 See_Comment [Auto mated message] The system which ge nerated this result transmit rohit reference range : <=37. The reference range was not used to interpr et this result as reji l/abnormal. [facility] [id number] 10:09:00 Test Item Value Reference Range Interpretation Comments Globulin (test code = Globulin) 2.8 2.7-4.2 [facility] [id number] 10:09:00 Test Item Value Reference Range Interpretation Comments A/G Ratio (test code = A/G Ratio) 1.0 1 0.7-1.6 [facility] [id number] 10:09:00 Test Item Value Reference Range Interpretation Comments Amylase Lvl (test code = Amylase Lvl) 19 25-115 [facility] [id number] 10:09:00 Test Item Value Reference Range Interpretation Comments Lipase Lvl (test code = Lipase Lvl) no gt 73-393 [facility]WjnufriKCJBNKMOVN3315-26-75 10:09:00 Test Item Value Reference Range Interpretation Comments PTT (test code = PTT) 41.4 s 22.9-35.8 [facility]HyhtwtiIHJUOLLZEQ7990-75-17 10:09:00 Test Item Value Reference Range Interpretation Comments PT (test code = PT) 15.4 s 12.0-14.7 [id number] 10:09:00 Test Item Value Reference Range Interpretation Comments INR (test code = INR) 1.24 1 0.85-1.17 [facility] HospitalJdeuvlqXZGMQTPXLU8079-36-05 10:09:00 Test Item Value Reference Range Interpretation Comments Fibrinogen Lvl (test code = Fibrinogen 312 230-510 Lvl) [facility] HospitalGtkxedxPTCZBPRHJX2385-21-42 10:09:00 Test Item Value Reference Range Interpretation Comments Thrombin Time (test code = Thrombin 16.6 s 15.0-21.2 Time) [facility]PegfkelJBSHJZAVSZ3130-53-98 10:09:00 Test Item Value Reference Range Interpretation Comments D-Dimer (test code = D-Dimer) 4.91 [facility]anoTurppppNJWFSAWHXH8051-27-07 10:09:00 Test Item Value Reference Range Interpretation Comments Basophils # (test code 0.1 See_Comment [Aut omated message] The = Basophils #) system which generated this result tra nsmitted reference range : <=0.2. The reference r leo was not used to int erpret this result as normal/abnormal . [facility] [id number] 10:09:00 Test Item Value Reference Range Interpretation Comments Hgb A1C (test code = Hgb A1C) 5.6 [facility] [id number] 10:09:00 Test Item Value Reference Range Interpretation Comments ALT (test code = ALT) 49 See_Comment [Auto mated message] The system which ge nerated this result transmit rohit reference range : <=65. The reference range was not used to interpr et this result as reji l/abnormal. [facility] [employer] [id number] 10:09:00 Test Item Value Reference Range Interpretation Comments Albumin Lvl (test code = Albumin Lvl) 2.8 3.5-5.0 [facility] [id number] 10:09:00 Test Item Value Reference Range Interpretation Comments Alk Phos (test code = Alk Phos) 41 39-136 [facility] [id number] 10:09:00 Test Item Value Reference Range Interpretation Comments Bili Direct (test code 0.2 See_Comment [Aut omated message] The = Bili Direct) system which generated this result tra nsmitted reference range : <=0.3. The reference r leo was not used to int erpret this result as reji l/abnormal. [facility] [id number] 10:09:00 Test Item Value Reference Range Interpretation Comments Bili Total (test code = Bili Total) 0.6 0.2-1.3 [facility] [id number] 10:09:00 Test Item Value Reference Range Interpretation Comments Bili Indirect (test 0.4 See_Comment [Automa rohit message] The code = Bili Indirect) system which generated this result tra nsmitted reference range : <=1.0. The reference r leo was not used to int erpret this result as normal/abnormal . [facility] [id number] 10:09:00 Test Item Value Reference Range Interpretation Comments Total Protein (test code = Total 5.6 6.4-8.4 Protein) [facility] [id number] 10:09:00 Test Item Value Reference Range Interpretation Comments AST (test code = AST) 33 See_Comment [Auto mated message] The system which ge nerated this result transmit rohit reference range : <=37. The reference range was not used to interpr et this result as reji l/abnormal. [facility] [id number] 10:09:00 Test Item Value Reference Range Interpretation Comments Globulin (test code = Globulin) 2.8 2.7-4.2 [facility] [id number] 10:09:00 Test Item Value Reference Range Interpretation Comments A/G Ratio (test code = A/G Ratio) 1.0 1 0.7-1.6 [facility] [id number] 10:09:00 Test Item Value Reference Range Interpretation Comments Amylase Lvl (test code = Amylase Lvl) 19 25-115 [facility] [id number] 10:09:00 Test Item Value Reference Range Interpretation Comments Lipase Lvl (test code = [place] [address] [facility]KwqoculWDFQRBKCTW3735-39-06 10:09:00 Test Item Value Reference Range Interpretation Comments PTT (test code = PTT) 41.4 s 22.9-35.8 [facility]IhkuvjzGYGVHLLAHF0062-22-63 10:09:00 Test Item Value Reference Range Interpretation Comments PT (test code = PT) 15.4 s 12.0-14.7 [facility]ImecwbjPMBOHCQFPE1858-98-70 10:09:00 Test Item Value Reference Range Interpretation Comments INR (test code = INR) 1.24 1 0.85-1.17 [facility]YqmzennRPPPHWBJLU7137-66-33 10:09:00 Test Item Value Reference Range Interpretation Comments Fibrinogen Lvl (test code = Fibrinogen 312 230-510 Lvl) [facility]VpoegmyVPYYAPCTGV1736-66-39 10:09:00 Test Item Value Reference Range Interpretation Comments Thrombin Time (test code = Thrombin 16.6 s 15.0-21.2 Time) [facility]anoTbmuxzcCNLBDIUDRS1139-54-58 10:09:00 Test Item Value Reference Range Interpretation Comments D-Dimer (test code = D-Dimer) 4.91 [facility] HospitalPojsrdjLYVCDLJQRP5434-63-25 10:09:00 Test Item Value Reference Range Interpretation Comments Basophils # (test code 0.1 See_Comment [Aut omated message] The = Basophils #) system which generated this result tra nsmitted reference range : <=0.2. The reference r leo was not used to int erpret this result as normal/abnormal . [facility] [id number] 10:09:00 Test Item Value Reference Range Interpretation Comments Hgb A1C (test code = Hgb A1C) 5.6 [facility] [id number] 10:09:00 Test Item Value Reference Range Interpretation Comments ALT (test code = ALT) 49 See_Comment [Auto mated message] The system which ge nerated this result transmit rohit reference range : <=65. The reference range was not used to interpr et this result as reij l/abnormal. [facility] [employer] [id number] 10:09:00 Test Item Value Reference Range Interpretation Comments Albumin Lvl (test code = Albumin Lvl) 2.8 3.5-5.0 [facility] [employer] [id number] 10:09:00 Test Item Value Reference Range Interpretation Comments Alk Phos (test code = Alk Phos) 41 39-136 [facility] [employer] [id number] 10:09:00 Test Item Value Reference Range Interpretation Comments Bili Direct (test code 0.2 See_Comment [Aut omated message] The = Bili Direct) system which generated this result tra nsmitted reference range : <=0.3. The reference r leo was not used to int erpret this result as reji l/abnormal. [facility] [id number] 10:09:00 Test Item Value Reference Range Interpretation Comments Bili Total (test code = Bili Total) 0.6 0.2-1.3 [facility] [id number] 10:09:00 Test Item Value Reference Range Interpretation Comments Bili Indirect (test 0.4 See_Comment [Automa rohit message] The code = Bili Indirect) system which generated this result tra nsmitted reference range : <=1.0. The reference r leo was not used to int erpret this result as normal/abnormal . [facility] [id number] 10:09:00 Test Item Value Reference Range Interpretation Comments Total Protein (test code = Total 5.6 6.4-8.4 Protein) [facility]2021-08-04 10:09:00 Test Item Value Reference Range Interpretation Comments AST (test code = AST) 33 See_Comment [Auto mated message] The system which ge nerated this result transmit rohit reference range : <=37. The reference range was not used to interpr et this result as reji l/abnormal. [facility] [id number] 10:09:00 Test Item Value Reference Range Interpretation Comments Globulin (test code = Globulin) 2.8 2.7-4.2 [facility] [id number] 10:09:00 Test Item Value Reference Range Interpretation Comments A/G Ratio (test code = A/G Ratio) 1.0 1 0.7-1.6 [facility] [id number] 10:09:00 Test Item Value Reference Range Interpretation Comments Amylase Lvl (test code = Amylase Lvl) 19 25-115 [facility] [id number] 10:09:00 Test Item Value Reference Range Interpretation Comments Lipase Lvl (test code = Lipase Lvl) no gt 73-393 [facility]anoHstwbsaNTSSNMMIYU1757-46-83 10:09:00 Test Item Value Reference Range Interpretation Comments PTT (test code = PTT) 41.4 s 22.9-35.8 [facility]PphithzPIJFCPUGMC5908-74-53 10:09:00 Test Item Value Reference Range Interpretation Comments PT (test code = PT) 15.4 s 12.0-14.7 [facility] HospitalXmtyyzjVPDDLLEIAQ2468-02-06 10:09:00 Test Item Value Reference Range Interpretation Comments INR (test code = INR) 1.24 1 0.85-1.17 [facility] HospitalHnqeelkSBQJPNLRSA2540-62-37 10:09:00 Test Item Value Reference Range Interpretation Comments Fibrinogen Lvl (test code = Fibrinogen 312 230-510 Lvl) [id number] 10:09:00 Test Item Value Reference Range Interpretation Comments Thrombin Time (test code = Thrombin 16.6 s 15.0-21.2 Time) [facility]anoPggdmumFCKGDOMIRW8830-05-01 10:09:00 Test Item Value Reference Range Interpretation Comments D-Dimer (test code = D-Dimer) 4.91 [facility]anoGalzttdUOOSEVKQYN3510-00-01 10:09:00 Test Item Value Reference Range Interpretation Comments Basophils # (test code 0.1 See_Comment [Aut omated message] The = Basophils #) system which generated this result tra nsmitted reference range : <=0.2. The reference r leo was not used to int erpret this result as normal/abnormal . [facility] [id number] 10:09:00 Test Item Value Reference Range Interpretation Comments Hgb A1C (test code = Hgb A1C) 5.6 [facility] [id number] 10:09:00 Test Item Value Reference Range Interpretation Comments ALT (test code = ALT) 49 See_Comment [Auto mated message] The system which ge nerated this result transmit rohit reference range : <=65. The reference range was not used to interpr et this result as reji l/abnormal. [facility] [employer] [id number] 10:09:00 Test Item Value Reference Range Interpretation Comments Albumin Lvl (test code = Albumin Lvl) 2.8 3.5-5.0 [facility] [id number] 10:09:00 Test Item Value Reference Range Interpretation Comments Alk Phos (test code = Alk Phos) 41 39-136 [facility] [id number] 10:09:00 Test Item Value Reference Range Interpretation Comments Bili Direct (test code 0.2 See_Comment [Aut omated message] The = Bili Direct) system which generated this result tra nsmitted reference range : <=0.3. The reference r leo was not used to int erpret this result as reji l/abnormal. [facility] [id number] 10:09:00 Test Item Value Reference Range Interpretation Comments Bili Total (test code = Bili Total) 0.6 0.2-1.3 [facility] [id number] 10:09:00 Test Item Value Reference Range Interpretation Comments Bili Indirect (test 0.4 See_Comment [Automa rohit message] The code = Bili Indirect) system which generated this result tra nsmitted reference range : <=1.0. The reference r leo was not used to int erpret this result as normal/abnormal . [facility] [id number] 10:09:00 Test Item Value Reference Range Interpretation Comments Total Protein (test code = Total 5.6 6.4-8.4 Protein) [facility] [id number] 10:09:00 Test Item Value Reference Range Interpretation Comments AST (test code = AST) 33 See_Comment [Auto mated message] The system which ge nerated this result transmit rohit reference range : <=37. The reference range was not used to interpr et this result as reji l/abnormal. [facility] [id number] 10:09:00 Test Item Value Reference Range Interpretation Comments Globulin (test code = Globulin) 2.8 2.7-4.2 [facility] [id number] 10:09:00 Test Item Value Reference Range Interpretation Comments A/G Ratio (test code = A/G Ratio) 1.0 1 0.7-1.6 [facility] [id number] 10:09:00 Test Item Value Reference Range Interpretation Comments Amylase Lvl (test code = Amylase Lvl) 19 25-115 [facility] [id number] 10:09:00 Test Item Value Reference Range Interpretation Comments Lipase Lvl (test code = Lipase Lvl) no gt 73-393 [facility]anoHobthvhFUVWGUVPDX3541-33-67 10:09:00 Test Item Value Reference Range Interpretation Comments PTT (test code = PTT) 41.4 s 22.9-35.8 [facility] HospitalAtbyupyINIQQXPGAT2083-71-14 10:09:00 Test Item Value Reference Range Interpretation Comments PT (test code = PT) 15.4 s 12.0-14.7 [facility] HospitalKohuyprKFONSVYFPJ0458-52-99 10:09:00 Test Item Value Reference Range Interpretation Comments INR (test code = INR) 1.24 1 0.85-1.17 [facility] HospitalOnthbhxFLBVMYUNHU1861-46-61 10:09:00 Test Item Value Reference Range Interpretation Comments Fibrinogen Lvl (test code = Fibrinogen 312 230-510 Lvl) [facility] HospitalUsltcnySQXYPUADHX5691-27-17 10:09:00 Test Item Value Reference Range Interpretation Comments Thrombin Time (test code = Thrombin 16.6 s 15.0-21.2 Time) [facility]anoRtqfonhXPOSTPOIGI5588-11-46 10:09:00 Test Item Value Reference Range Interpretation Comments D-Dimer (test code = D-Dimer) 4.91 [facility] HospitalYlspbaaUSZMBSTBEA6163-98-71 10:09:00 Test Item Value Reference Range Interpretation Comments Basophils # (test code 0.1 See_Comment [Aut omated message] The = Basophils #) system which generated this result tra nsmitted reference range : <=0.2. The reference r leo was not used to int erpret this result as normal/abnormal . [facility] [id number] 10:09:00 Test Item Value Reference Range Interpretation Comments Hgb A1C (test code = Hgb A1C) 5.6 [facility] [id number] 10:09:00 Test Item Value Reference Range Interpretation Comments ALT (test code = ALT) 49 See_Comment [Auto mated message] The system which ge nerated this result transmit rohit reference range : <=65. The reference range was not used to interpr et this result as reji l/abnormal. [facility] [employer] [id number] 10:09:00 Test Item Value Reference Range Interpretation Comments Albumin Lvl (test code = Albumin Lvl) 2.8 3.5-5.0 [facility] [id number] 10:09:00 Test Item Value Reference Range Interpretation Comments Alk Phos (test code = Alk Phos) 41 39-136 [facility] [id number] 10:09:00 Test Item Value Reference Range Interpretation Comments Bili Direct (test code 0.2 See_Comment [Aut omated message] The = Bili Direct) system which generated this result tra nsmitted reference range : <=0.3. The reference r leo was not used to int erpret this result as reji l/abnormal. [facility]2021-08-04 10:09:00 Test Item Value Reference Range Interpretation Comments Bili Total (test code = Bili Total) 0.6 0.2-1.3 [facility]2021-08-04 10:09:00 Test Item Value Reference Range Interpretation Comments Bili Indirect (test 0.4 See_Comment [Automa rohit message] The code = Bili Indirect) system which generated this result tra nsmitted reference range : <=1.0. The reference r leo was not used to int erpret this result as normal/abnormal . [facility]2021-08-04 10:09:00 Test Item Value Reference Range Interpretation Comments Total Protein (test code = Total 5.6 6.4-8.4 Protein) [facility]2021-08-04 10:09:00 Test Item Value Reference Range Interpretation Comments AST (test code = AST) 33 See_Comment [Auto mated message] The system which ge nerated this result transmit rohit reference range : <=37. The reference range was not used to interpr et this result as reji l/abnormal. [facility]2021-08-04 10:09:00 Test Item Value Reference Range Interpretation Comments Globulin (test code = Globulin) 2.8 2.7-4.2 [facility]2021-08-04 10:09:00 Test Item Value Reference Range Interpretation Comments A/G Ratio (test code = A/G Ratio) 1.0 1 0.7-1.6 [facility]2021-08-04 10:09:00 Test Item Value Reference Range Interpretation Comments Amylase Lvl (test code = Amylase Lvl) 19 25-115 [facility]2021-08-04 10:09:00 Test Item Value Reference Range Interpretation Comments Lipase Lvl (test code = Lipase Lvl) no gt 73-393 [facility]anoZykahmdDBHFJUEMRX5157-74-19 10:09:00 Test Item Value Reference Range Interpretation Comments PTT (test code = PTT) 41.4 s 22.9-35.8 [facility] HospitalAezqqrnYBTFJSXSUA8627-71-11 10:09:00 Test Item Value Reference Range Interpretation Comments PT (test code = PT) 15.4 s 12.0-14.7 [facility]anoGrckmauDWHMQTHHYL6270-11-22 10:09:00 Test Item Value Reference Range Interpretation Comments INR (test code = INR) 1.24 1 0.85-1.17 [facility]anoZhbmejwFQTCZEOAGO7265-72-69 10:09:00 Test Item Value Reference Range Interpretation Comments Fibrinogen Lvl (test code = Fibrinogen 312 230-510 Lvl) [facility] HospitalEuahvhcAIXSPYTIQK7133-60-80 10:09:00 Test Item Value Reference Range Interpretation Comments Thrombin Time (test code = Thrombin 16.6 s 15.0-21.2 Time) [facility]anoIqokkeqNSLHHZEQMK4564-70-32 10:09:00 Test Item Value Reference Range Interpretation Comments D-Dimer (test code = D-Dimer) 4.91 [facility]anoVxkdxjvYBHWNCARUL8785-01-33 10:09:00 Test Item Value Reference Range Interpretation Comments Basophils # (test code 0.1 See_Comment [Aut omated message] The = Basophils #) system which generated this result tra nsmitted reference range : <=0.2. The reference r leo was not used to int erpret this result as normal/abnormal . [facility] FKQVIRQZG4803-39-50 10:09:00 Test Item Value Reference Range Interpretation Comments Hgb A1C (test code = Hgb A1C) 5.6 [facility] [id number] 09:07:00 Test Item Value Reference Range Interpretation Comments Amylase Lvl (test code = Amylase Lvl) 4 25-115 [facility]anoRqqamqvILBRADEMFK7188-90-21 09:07:00 Test Item Value Reference Range Interpretation Comments Thrombin Time (test code = Thrombin 18.0 s 15.0-21.2 Time) [facility]anoBnlhlbjTHIEEEWBIU9978-01-42 09:07:00 Test Item Value Reference Range Interpretation Comments PT (test code = PT) 24.6 s 12.0-14.7 [place] 876111-08-04 09:07:00 Test Item Value Reference Range Interpretation Comments INR (test code = INR) 2.31 1 0.85-1.17 [place] 876111-08-04 09:07:00 Test Item Value Reference Range Interpretation Comments PTT (test code = PTT) 57.5 s 22.9-35.8 [place] 876111-08-04 09:07:00 Test Item Value Reference Range Interpretation Comments Fibrinogen Lvl (test code = Fibrinogen 125 230-510 Lvl) [place] 876111-08-04 09:07:00 Test Item Value Reference Range Interpretation Comments D-Dimer (test code = D-Dimer) 2.28 [facility]2021-08-04 09:07:00 Test Item Value Reference Range Interpretation Comments Amylase Lvl (test code = Amylase Lvl) 4 - [facility]anoKmrfqijPCYFDODPNN4694-15-41 09:07:00 Test Item Value Reference Range Interpretation Comments Thrombin Time (test code = Thrombin 18.0 s 15.0-21.2 Time) [place] 876111-08-04 09:07:00 Test Item Value Reference Range Interpretation Comments PT (test code = PT) 24.6 s 12.0-14.7 [place] 876111-08-04 09:07:00 Test Item Value Reference Range Interpretation Comments INR (test code = INR) 2.31 1 0.85-1.17 [place] 876111-08-04 09:07:00 Test Item Value Reference Range Interpretation Comments PTT (test code = PTT) 57.5 s 22.9-35.8 [place] 876111-08-04 09:07:00 Test Item Value Reference Range Interpretation Comments Fibrinogen Lvl (test code = Fibrinogen 125 230-510 Lvl) [facility]anoVdouwkzJJOGOSLQAD6575-87-16 09:07:00 Test Item Value Reference Range Interpretation Comments D-Dimer (test code = D-Dimer) 2.28 [facility]2021-08-04 09:07:00 Test Item Value Reference Range Interpretation Comments Amylase Lvl (test code = Amylase Lvl) 4 - [place] 876111-08-04 09:07:00 Test Item Value Reference Range Interpretation Comments Thrombin Time (test code = Thrombin 18.0 s 15.0-21.2 Time) [place] 876111-08-04 09:07:00 Test Item Value Reference Range Interpretation Comments PT (test code = PT) 24.6 s 12.0-14.7 [id number] 09:07:00 Test Item Value Reference Range Interpretation Comments INR (test code = INR) 2.31 1 0.85-1.17 [facility]anoVcplblmLQCOPNAFXL8007-63-93 09:07:00 Test Item Value Reference Range Interpretation Comments PTT (test code = PTT) 57.5 s 22.9-35.8 [facility]anoEpnjsxdKLTPWYJIFH1167-91-97 09:07:00 Test Item Value Reference Range Interpretation Comments Fibrinogen Lvl (test code = Fibrinogen 125 230-510 Lvl) [facility]anoGcpqhwpXJEMNHUIGB4610-90-29 09:07:00 Test Item Value Reference Range Interpretation Comments D-Dimer (test code = D-Dimer) 2.28 [facility]2021-08-04 09:07:00 Test Item Value Reference Range Interpretation Comments Amylase Lvl (test code = Amylase Lvl) 4 - [facility]anoWloxkftVBWJRSLUPW6834-11-38 09:07:00 Test Item Value Reference Range Interpretation Comments Thrombin Time (test code = Thrombin 18.0 s 15.0-21.2 Time) [facility]anoSmfafkkVGGIOOLKRF9271-37-19 09:07:00 Test Item Value Reference Range Interpretation Comments PT (test code = PT) 24.6 s 12.0-14.7 [facility]anoOtjoanmSSUGTXLOAU4520-49-15 09:07:00 Test Item Value Reference Range Interpretation Comments INR (test code = INR) 2.31 1 0.85-1.17 [facility]anoFyhejmlNXBUORFFXA3993-01-56 09:07:00 Test Item Value Reference Range Interpretation Comments PTT (test code = PTT) 57.5 s 22.9-35.8 [facility]anoNoasfvvBMJRHRJJLY2706-75-27 09:07:00 Test Item Value Reference Range Interpretation Comments Fibrinogen Lvl (test code = Fibrinogen 125 230-510 Lvl) [facility]anoEaaufwiCIGZBYRVDZ4076-42-48 09:07:00 Test Item Value Reference Range Interpretation Comments D-Dimer (test code = D-Dimer) 2.28 [facility]2021-08-04 09:07:00 Test Item Value Reference Range Interpretation Comments Amylase Lvl (test code = Amylase Lvl) 4 25-115 [place] [id number] 09:07:00 Test Item Value Reference Range Interpretation Comments Thrombin Time (test code = Thrombin 18.0 s 15.0-21.2 Time) [facility]anoFemrhxnIGFPHUIZWT1252-02-51 09:07:00 Test Item Value Reference Range Interpretation Comments PT (test code = PT) 24.6 s 12.0-14.7 [facility]anoKsynistBYEPAUOFVZ5385-50-98 09:07:00 Test Item Value Reference Range Interpretation Comments INR (test code = INR) 2.31 1 0.85-1.17 [facility]anoPbwqpteHSKZCBYSAK5895-97-38 09:07:00 Test Item Value Reference Range Interpretation Comments PTT (test code = PTT) 57.5 s 22.9-35.8 [facility]anoYdmyzscJYFPWMWLQA3114-69-34 09:07:00 Test Item Value Reference Range Interpretation Comments Fibrinogen Lvl (test code = Fibrinogen 125 230-510 Lvl) [facility]anoGdqlxlaLJLWQAEGIG2710-87-23 09:07:00 Test Item Value Reference Range Interpretation Comments D-Dimer (test code = D-Dimer) 2.28 [facility] [id number] 04:52:00 Test Item Value Reference Range Interpretation Comments RBC product (test code Product available = RBC product) (01/21/21 11:52 PM) [facility] [id number] 04:52:00 Test Item Value Reference Range Interpretation Comments RBC product (test code Product available = RBC product) (01/21/21 11:52 PM) [facility] [id number] 04:52:00 Test Item Value Reference Range Interpretation Comments RBC product (test code Product available = RBC product) (01/21/21 11:52 PM) [facility] [id number] 04:52:00 Test Item Value Reference Range Interpretation Comments RBC product (test code Product available = RBC product) (01/21/21 11:52 PM) [facility] [id number] 04:52:00 Test Item Value Reference Range Interpretation Comments RBC product (test code Product available = RBC product) (01/21/21 11:52 PM) [id number] 00:38:00 Test Item Value Reference Range Interpretation Comments Troponin-I (test code no gt See_Comment [Auto mated message] The = Troponin-I) system which g enerated this result transmit rohit reference range : <=0.40. The reference r leo was not used to interpr et this result as reji l/abnormal. [facility] 00:38:00 Test Item Value Reference Range Interpretation Comments Troponin-I (test code no gt See_Comment [Auto mated message] The = Troponin-I) system which g enerated this result transmit rohit reference range : <=0.40. The reference r leo was not used to interpr et this result as reji l/abnormal. [facility] 00:38:00 Test Item Value Reference Range Interpretation Comments Troponin-I (test code no gt See_Comment [Auto mated message] The = Troponin-I) system which g enerated this result transmit rohit reference range : <=0.40. The reference r leo was not used to interpr et this result as reji l/abnormal. [facility] 00:38:00 Test Item Value Reference Range Interpretation Comments Troponin-I (test code no gt See_Comment [Auto mated message] The = Troponin-I) system which g enerated this result transmit rohit reference range : <=0.40. The reference r leo was not used to interpr et this result as reji l/abnormal. [facility] 00:38:00 Test Item Value Reference Range Interpretation Comments Troponin-I (test code no gt See_Comment [Auto mated message] The = Troponin-I) system which g enerated this result transmit rohit reference range : <=0.40. The reference r leo was not used to interpr et this result as reji l/abnormal. [facility] [employer]2021-08-03 17:47:00 Test Item Value Reference Range Interpretation Comments BNP (test code = BNP) 2324 [facility] Station[facility]20[facility] 17:47:00 Test Item Value Reference Range Interpretation Comments Troponin-I (test code 0.02 See_Comment [Auto mated message] The = Troponin-I) system which g enerated this result transmit rohit reference range : <=0.40. The reference r leo was not used to interpr et this result as reji l/abnormal. [facility] StationGgpqhuxPNGTYROHJK9227-08-30 17:47:00 Test Item Value Reference Range Interpretation Comments Hep Bs Ag (test code Negative *NA*(01/21/21 = Hep Bs Ag) 12:47 PM) [facility] StationSynbiotaAC [id number] 17:47:00 Test Item Value Reference Range Interpretation Comments BNP (test code = BNP) 2323 [facility] [employer] AppsannCARMeriTaleemAC [id number] 17:47:00 Test Item Value Reference Range Interpretation Comments Troponin-I (test code 0.02 See_Comment [Auto mated message] The = Troponin-I) system which g enerated this result transmit rohit reference range : <=0.40. The reference r leo was not used to interpr et this result as reji l/abnormal. [facility] [id number] 17:47:00 Test Item Value Reference Range Interpretation Comments Hep Bs Ag (test code Negative *NA*(01/21/21 = Hep Bs Ag) 12:47 PM) [facility] StationSynbiota [id number] 17:47:00 Test Item Value Reference Range Interpretation Comments BNP (test code = BNP) 2323 [facility] [employer]Lex [id number] 17:47:00 Test Item Value Reference Range Interpretation Comments Troponin-I (test code 0.02 See_Comment [Auto mated message] The = Troponin-I) system which g enerated this result transmit rohit reference range : <=0.40. The reference r leo was not used to interpr et this result as reji l/abnormal. [facility] [id number] 17:47:00 Test Item Value Reference Range Interpretation Comments Hep Bs Ag (test code Negative *NA*(01/21/21 = Hep Bs Ag) 12:47 PM) [facility] StationSynbiotaAC [id number] 17:47:00 Test Item Value Reference Range Interpretation Comments BNP (test code = BNP) 2323 [facility] [employer] [id number] 17:47:00 Test Item Value Reference Range Interpretation Comments Troponin-I (test code 0.02 See_Comment [Auto mated message] The = Troponin-I) system which g enerated this result transmit rohit reference range : <=0.40. The reference r leo was not used to interpr et this result as reji l/abnormal. [facility] [id number] 17:47:00 Test Item Value Reference Range Interpretation Comments Hep Bs Ag (test code Negative *NA*(01/21/21 = Hep Bs Ag) 12:47 PM) [facility] WhoisEDIAC [id number] 17:47:00 Test Item Value Reference Range Interpretation Comments BNP (test code = BNP) 2324 [facility] StationForwardMetrics [id number] 17:47:00 Test Item Value Reference Range Interpretation Comments Troponin-I (test code 0.02 See_Comment [Auto mated message] The = Troponin-I) system which g enerated this result transmit rohit reference range : <=0.40. The reference r leo was not used to interpr et this result as reji l/abnormal. [facility] [id number] 17:47:00 Test Item Value Reference Range Interpretation Comments Hep Bs Ag (test code Negative *NA*(01/21/21 = Hep Bs Ag) 12:47 PM) [facility] [employer] [id number] 17:43:00 Test Item Value Reference Range Interpretation Comments B/C Ratio (test code = B/C Ratio) 5 1 6-25 [facility] [employer] [id number] 17:43:00 Test Item Value Reference Range Interpretation Comments ALT (test code = ALT) 66 See_Comment [Auto mated message] The system which ge nerated this result transmit rohit reference range : <=65. The reference range was not used to interpr et this result as reji l/abnormal. [facility] [employer]2021-08-03 17:43:00 Test Item Value Reference Range Interpretation Comments Albumin Lvl (test code = Albumin Lvl) 3.0 3.5-5.0 [facility] [employer]2021-08-03 17:43:00 Test Item Value Reference Range Interpretation Comments Alk Phos (test code = Alk Phos) 40 39-136 [facility] [employer]2021-08-03 17:43:00 Test Item Value Reference Range Interpretation Comments Bili Total (test code = Bili Total) 0.5 0.2-1.3 [facility] [employer]2021-08-03 17:43:00 Test Item Value Reference Range Interpretation Comments Total Protein (test code = Total 5.7 6.4-8.4 Protein) [facility] [employer] [id number] 17:43:00 Test Item Value Reference Range Interpretation Comments AST (test code = AST) 52 See_Comment [Auto mated message] The system which ge nerated this result transmit rohit reference range : <=37. The reference range was not used to interpr et this result as reji l/abnormal. [facility] [employer] [id number] 17:43:00 Test Item Value Reference Range Interpretation Comments Globulin (test code = Globulin) 2.7 2.7-4.2 [facility] [employer] [id number] 17:43:00 Test Item Value Reference Range Interpretation Comments A/G Ratio (test code = A/G Ratio) 1.1 1 0.7-1.6 [facility] [employer] [id number] 17:43:00 Test Item Value Reference Range Interpretation Comments Lactic Acid Lvl (test code = Lactic 1.1 0.5-2.2 Acid Lvl) [facility] [employer] [id number] 17:43:00 Test Item Value Reference Range Interpretation Comments B/C Ratio (test code = B/C Ratio) 5 1 6-25 [facility] [employer] [id number] 17:43:00 Test Item Value Reference Range Interpretation Comments ALT (test code = ALT) 66 See_Comment [Auto mated message] The system which ge nerated this result transmit rohit reference range : <=65. The reference range was not used to interpr et this result as reji l/abnormal. [facility] [employer] [id number] 17:43:00 Test Item Value Reference Range Interpretation Comments Albumin Lvl (test code = Albumin Lvl) 3.0 3.5-5.0 [facility] [employer] [id number] 17:43:00 Test Item Value Reference Range Interpretation Comments Alk Phos (test code = Alk Phos) 40 39-136 [facility] [employer] [id number] 17:43:00 Test Item Value Reference Range Interpretation Comments Bili Total (test code = Bili Total) 0.5 0.2-1.3 [facility] [employer] [id number] 17:43:00 Test Item Value Reference Range Interpretation Comments Total Protein (test code = Total 5.7 6.4-8.4 Protein) [facility] [employer] [id number] 17:43:00 Test Item Value Reference Range Interpretation Comments AST (test code = AST) 52 See_Comment [Auto mated message] The system which ge nerated this result transmit rohit reference range : <=37. The reference range was not used to interpr et this result as reji l/abnormal. [facility] StationMailPix [id number] 17:43:00 Test Item Value Reference Range Interpretation Comments Globulin (test code = Globulin) 2.7 2.7-4.2 [facility] StationMailPix [id number] 17:43:00 Test Item Value Reference Range Interpretation Comments A/G Ratio (test code = A/G Ratio) 1.1 1 0.7-1.6 [facility] StationMailPix [id number] 17:43:00 Test Item Value Reference Range Interpretation Comments Lactic Acid Lvl (test code = Lactic 1.1 0.5-2.2 Acid Lvl) [facility] StationMailPix [id number] 17:43:00 Test Item Value Reference Range Interpretation Comments B/C Ratio (test code = B/C Ratio) 5 1 6-25 [facility] [employer] [id number] 17:43:00 Test Item Value Reference Range Interpretation Comments ALT (test code = ALT) 66 See_Comment [Auto mated message] The system which ge nerated this result transmit rohit reference range : <=65. The reference range was not used to interpr et this result as reji l/abnormal. [facility] [employer] [id number] 17:43:00 Test Item Value Reference Range Interpretation Comments Albumin Lvl (test code = Albumin Lvl) 3.0 3.5-5.0 [facility] [employer] [id number] 17:43:00 Test Item Value Reference Range Interpretation Comments Alk Phos (test code = Alk Phos) 40 39-136 [facility] StationMailPix [id number] 17:43:00 Test Item Value Reference Range Interpretation Comments Bili Total (test code = Bili Total) 0.5 0.2-1.3 [facility] [employer] [id number] 17:43:00 Test Item Value Reference Range Interpretation Comments Total Protein (test code = Total 5.7 6.4-8.4 Protein) [facility] [employer] [id number] 17:43:00 Test Item Value Reference Range Interpretation Comments AST (test code = AST) 52 See_Comment [Auto mated message] The system which ge nerated this result transmit rohit reference range : <=37. The reference range was not used to interpr et this result as reji l/abnormal. [facility] [employer] [id number] 17:43:00 Test Item Value Reference Range Interpretation Comments Globulin (test code = Globulin) 2.7 2.7-4.2 [facility] [employer] [id number] 17:43:00 Test Item Value Reference Range Interpretation Comments A/G Ratio (test code = A/G Ratio) 1.1 1 0.7-1.6 [facility] [employer] [id number] 17:43:00 Test Item Value Reference Range Interpretation Comments Lactic Acid Lvl (test code = Lactic 1.1 0.5-2.2 Acid Lvl) [facility] [employer] [id number] 17:43:00 Test Item Value Reference Range Interpretation Comments B/C Ratio (test code = B/C Ratio) 5 1 6-25 [facility] [employer] [id number] 17:43:00 Test Item Value Reference Range Interpretation Comments ALT (test code = ALT) 66 See_Comment [Auto mated message] The system which ge nerated this result transmit rohit reference range : <=65. The reference range was not used to interpr et this result as reji l/abnormal. [facility] [employer] [id number] 17:43:00 Test Item Value Reference Range Interpretation Comments Albumin Lvl (test code = Albumin Lvl) 3.0 3.5-5.0 [facility] [employer] [id number] 17:43:00 Test Item Value Reference Range Interpretation Comments Alk Phos (test code = Alk Phos) 40 39-136 [facility] [employer] [id number] 17:43:00 Test Item Value Reference Range Interpretation Comments Bili Total (test code = Bili Total) 0.5 0.2-1.3 [facility] [employer] [id number] 17:43:00 Test Item Value Reference Range Interpretation Comments Total Protein (test code = Total 5.7 6.4-8.4 Protein) [facility] [employer] [id number] 17:43:00 Test Item Value Reference Range Interpretation Comments AST (test code = AST) 52 See_Comment [Auto mated message] The system which ge nerated this result transmit rohit reference range : <=37. The reference range was not used to interpr et this result as reji l/abnormal. [facility] [employer] [id number] 17:43:00 Test Item Value Reference Range Interpretation Comments Globulin (test code = Globulin) 2.7 2.7-4.2 [facility] [employer] [id number] 17:43:00 Test Item Value Reference Range Interpretation Comments A/G Ratio (test code = A/G Ratio) 1.1 1 0.7-1.6 [facility] [employer] [id number] 17:43:00 Test Item Value Reference Range Interpretation Comments Lactic Acid Lvl (test code = Lactic 1.1 0.5-2.2 Acid Lvl) [facility] [employer] [id number] 17:43:00 Test Item Value Reference Range Interpretation Comments B/C Ratio (test code = B/C Ratio) 5 1 6-25 [facility] [employer] [id number] 17:43:00 Test Item Value Reference Range Interpretation Comments ALT (test code = ALT) 66 See_Comment [Auto mated message] The system which ge nerated this result transmit rohit reference range : <=65. The reference range was not used to interpr et this result as reji l/abnormal. [facility] [employer] [id number] 17:43:00 Test Item Value Reference Range Interpretation Comments Albumin Lvl (test code = Albumin Lvl) 3.0 3.5-5.0 [facility] [employer] [id number] 17:43:00 Test Item Value Reference Range Interpretation Comments Alk Phos (test code = Alk Phos) 40 39-136 [facility] [employer] [id number] 17:43:00 Test Item Value Reference Range Interpretation Comments Bili Total (test code = Bili Total) 0.5 0.2-1.3 [facility] [employer] [id number] 17:43:00 Test Item Value Reference Range Interpretation Comments Total Protein (test code = Total 5.7 6.4-8.4 Protein) [employer] [id number] 17:43:00 Test Item Value Reference Range Interpretation Comments AST (test code = AST) 52 See_Comment [Auto mated message] The system which ge nerated this result transmit rohit reference range : <=37. The reference range was not used to interpr et this result as reji l/abnormal. [employer] [id number] 17:43:00 Test Item Value Reference Range Interpretation Comments Globulin (test code = Globulin) 2.7 2.7-4.2 [facility] [employer] [id number] 17:43:00 Test Item Value Reference Range Interpretation Comments A/G Ratio (test code = A/G Ratio) 1.1 1 0.7-1.6 [facility] [employer]2021-08-03 17:43:00 Test Item Value Reference Range Interpretation Comments Lactic Acid Lvl (test code = Lactic 1.1 0.5-2.2 Acid Lvl) [facility] [employer] [id number] 16:20:00 Test Item Value Reference Range Interpretation Comments ABO/Rh (test code = ABO/Rh) B POS [facility] [employer] [id number] 16:20:00 Test Item Value Reference Range Interpretation Comments Antibody Scrn (test Negative (01/21/21 11:20 code = Antibody Scrn) AM) [facility] [id number] 16:20:00 Test Item Value Reference Range Interpretation Comments Anisocyte (test code = 1+ *ABN*(01/21/21 Anisocyte) 11:20 AM) [facility] [employer] [id number] 16:20:00 Test Item Value Reference Range Interpretation Comments ABO/Rh (test code = ABO/Rh) B POS [facility] [employer] [id number] 16:20:00 Test Item Value Reference Range Interpretation Comments Antibody Scrn (test Negative (01/21/21 11:20 code = Antibody Scrn) AM) [facility] [id number] 16:20:00 Test Item Value Reference Range Interpretation Comments Anisocyte (test code = 1+ *ABN*(01/21/21 Anisocyte) 11:20 AM) [employer] [id number] 16:20:00 Test Item Value Reference Range Interpretation Comments ABO/Rh (test code = ABO/Rh) B POS [facility] [id number] 16:20:00 Test Item Value Reference Range Interpretation Comments Antibody Scrn (test Negative (01/21/21 11:20 code = Antibody Scrn) AM) [id number] 16:20:00 Test Item Value Reference Range Interpretation Comments Anisocyte (test code = 1+ *ABN*(01/21/21 Anisocyte) 11:20 AM) [facility] [id number] 16:20:00 Test Item Value Reference Range Interpretation Comments ABO/Rh (test code = ABO/Rh) B POS [facility] [id number] 16:20:00 Test Item Value Reference Range Interpretation Comments Antibody Scrn (test Negative (01/21/21 11:20 code = Antibody Scrn) AM) [id number] 16:20:00 Test Item Value Reference Range Interpretation Comments Anisocyte (test code = 1+ *ABN*(01/21/21 Anisocyte) 11:20 AM) [facility] [id number] 16:20:00 Test Item Value Reference Range Interpretation Comments ABO/Rh (test code = ABO/Rh) B POS [facility] [id number] 16:20:00 Test Item Value Reference Range Interpretation Comments Antibody Scrn (test Negative (01/21/21 11:20 code = Antibody Scrn) AM) [id number] 16:20:00 Test Item Value Reference Range Interpretation Comments Anisocyte (test code = 1+ *ABN*(01/21/21 Anisocyte) 11:20 AM) [facility] StationPivotal TherapeuticsMISS[facility] [id number] 15:35:00 Test Item Value Reference Range Interpretation Comments Lactase Lvl (test code = Lactase Lvl) 2.0 [facility] StationPivotal TherapeuticsMISS[facility] [id number] 15:35:00 Test Item Value Reference Range Interpretation Comments Sucrase Lvl (test code = Sucrase Lvl) 38.6 [facility] StationCSA MedicalSIER[facility] [id number] 15:35:00 Test Item Value Reference Range Interpretation Comments Maltase Lvl (test code = Maltase Lvl) 177.2 [facility] [id number] 15:35:00 Test Item Value Reference Range Interpretation Comments Palatinase Lvl (test code = Palatinase 13.8 Lvl) [facility] [facility] [id number] 15:35:00 Test Item Value Reference Range Interpretation Comments Lactase Lvl (test code = Lactase Lvl) 2.0 [facility] LAB [id number] 15:35:00 Test Item Value Reference Range Interpretation Comments Sucrase Lvl (test code = Sucrase Lvl) 38.6 [facility] LAB [id number] 15:35:00 Test Item Value Reference Range Interpretation Comments Maltase Lvl (test code = Maltase Lvl) 177.2 [facility] LAB [id number] 15:35:00 Test Item Value Reference Range Interpretation Comments Palatinase Lvl (test code = Palatinase 13.8 Lvl) [facility] LAB [id number] 15:35:00 Test Item Value Reference Range Interpretation Comments Lactase Lvl (test code = Lactase Lvl) 2.0 [facility] LAB [id number] 15:35:00 Test Item Value Reference Range Interpretation Comments Sucrase Lvl (test code = Sucrase Lvl) 38.6 [facility] LAB [id number] 15:35:00 Test Item Value Reference Range Interpretation Comments Maltase Lvl (test code = Maltase Lvl) 177.2 [facility] LAB [id number] 15:35:00 Test Item Value Reference Range Interpretation Comments Palatinase Lvl (test code = Palatinase 13.8 Lvl) [facility] LAB [id number] 15:35:00 Test Item Value Reference Range Interpretation Comments Lactase Lvl (test code = Lactase Lvl) 2.0 [facility] LAB [id number] 15:35:00 Test Item Value Reference Range Interpretation Comments Sucrase Lvl (test code = Sucrase Lvl) 38.6 [facility] LAB [id number] 15:35:00 Test Item Value Reference Range Interpretation Comments Maltase Lvl (test code = Maltase Lvl) 177.2 [facility] [id number] 15:35:00 Test Item Value Reference Range Interpretation Comments Palatinase Lvl (test code = Palatinase 13.8 Lvl) [facility] [id number] 15:35:00 Test Item Value Reference Range Interpretation Comments Lactase Lvl (test code = Lactase Lvl) 2.0 [facility] [id number] 15:35:00 Test Item Value Reference Range Interpretation Comments Sucrase Lvl (test code = Sucrase Lvl) 38.6 [facility] LAB [id number] 15:35:00 Test Item Value Reference Range Interpretation Comments Maltase Lvl (test code = Maltase Lvl) 177.2 [facility] LAB [id number] 15:35:00 Test Item Value Reference Range Interpretation Comments Palatinase Lvl (test code = Palatinase 13.8 Lvl) [id number] 13:21:00 Test Item Value Reference Range Interpretation Comments Potassium WB (test code = Potassium WB) 5.1 3.5-5.1 [id number] 13:21:00 Test Item Value Reference Range Interpretation Comments S Preg (test code = S Negative 8*NA*(01/21/21 Preg) 8:21 AM) [facility] CenterDjidiqgZXVEWQAQSBHA8191-73-36 13:21:00 Test Item Value Reference Range Interpretation Comments Potassium WB (test code = Potassium WB) 5.1 3.5-5.1 [id number] 13:21:00 Test Item Value Reference Range Interpretation Comments S Preg (test code = S Negative 8*NA*(01/21/21 Preg) 8:21 AM) [facility] Center[id number] 13:21:00 Test Item Value Reference Range Interpretation Comments Potassium WB (test code = Potassium WB) 5.1 3.5-5.1 [facility] CenterW[id number] 13:21:00 Test Item Value Reference Range Interpretation Comments S Preg (test code = S Negative 8*NA*(01/21/21 Preg) 8:21 AM) [facility] Center[id number] 13:21:00 Test Item Value Reference Range Interpretation Comments Potassium WB (test code = Potassium WB) 5.1 3.5-5.1 [place] [id number] 13:21:00 Test Item Value Reference Range Interpretation Comments S Preg (test code = S Negative 8*NA*(01/21/21 Preg) 8:21 AM) [facility] C[id number] 13:21:00 Test Item Value Reference Range Interpretation Comments Potassium WB (test code = Potassium WB) 5.1 3.5-5.1 [place] [id number] 13:21:00 Test Item Value Reference Range Interpretation Comments S Preg (test code = S Negative 8*NA*(01/21/21 Preg) 8:21 AM) [id number] 11:19:00 Test Item Value Reference Range Interpretation Comments Coronavirus (COVID-19) Not Detected (01/21/21 EMANUEL (test code = 6:19 AM) Coronavirus (COVID-19) EMANUEL) [facility] TempleBnfmzcwKXUKIGNCSX9694-76-03 11:19:00 Test Item Value Reference Range Interpretation Comments Coronavirus (COVID-19) Not Detected (01/21/21 EMANUEL (test code = 6:19 AM) Coronavirus (COVID-19) EMANUEL) [facility] [id number] 11:19:00 Test Item Value Reference Range Interpretation Comments Coronavirus (COVID-19) Not Detected (01/21/21 EMANUEL (test code = 6:19 AM) Coronavirus (COVID-19) EMANUEL) [facility] [id number] 11:19:00 Test Item Value Reference Range Interpretation Comments Coronavirus (COVID-19) Not Detected (01/21/21 EMANUEL (test code = 6:19 AM) Coronavirus (COVID-19) EMANUEL) [facility] [id number] 11:19:00 Test Item Value Reference Range Interpretation Comments Coronavirus (COVID-19) Not Detected (01/21/21 EMANUEL (test code = 6:19 AM) Coronavirus (COVID-19) EMANUEL) [facility] Tkwtwsw1844-37-04 16:39:05 Test Item Value Reference Range Interpretation Comments Glucose POC (test 183 mg/dL 70-115 H 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 Draw a venous Glucose and send to the main Lab for analysis. 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 Draw a venous Glucose and send to the main Lab for analysis. 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 Draw a venous Glucose and send to the main Lab for analysis. POC [id number] 17:16:35 Test Item Value Reference Range Interpretation Comments Glucose POC (test 281 mg/dL 70-115 H Notify RN or MDIf you code = Glucose POC) consider your patient critically ill, the Merlin-Accu Chec k Infrom II meter should not be used for Glucos e determination. Draw a venous Glucose and send to the main Lab for analysis. POC Pkaqwca1654-11-31 12:00:38 Test Item Value Reference Range Interpretation Comments Glucose POC (test 138 mg/dL 70-115 H Notify RN or MDIf you code = Glucose POC) consider your patient critically ill, the Merlin-Accu Chec k Infrom II meter should not be used for Glucos e determination. Draw a venous Glucose and send to the main Lab for analysis. POC Egtktas5756-90-77 07:41:32 Test Item Value Reference Range Interpretation Comments Glucose POC (test 206 mg/dL 70-115 H Notify RN or MDIf you code = Glucose POC) consider your patient critically ill, the Merlin-Accu Chec k Infrom II meter should not be used for Glucos e determination. Draw a venous Glucose and send to the main Lab for analysis. 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 Draw a venous Glucose and send to the main Lab for analysis. POC Evekwxq7234-69-70 17:12:03 Test Item Value Reference Range Interpretation Comments Glucose POC (test 173 mg/dL 70-115 H Notify RN or MDIf you code = Glucose POC) consider your patient critically ill, the Merlin-Accu Chec k Infrom II meter should not be used for Glucos e determination. Draw a venous Glucose and send to the main Lab for analysis. POC [id number] 11:58:01 Test Item Value Reference Range Interpretation Comments Glucose POC (test 289 mg/dL 70-115 H Notify RN or MDIf you code = Glucose POC) consider your patient critically ill, the Merlin-Accu Chec k Infrom II meter should not be used for Glucos e determination. Draw a venous Glucose and send to the main Lab for analysis. POC Diromly6026-01-29 08:19:37 Test Item Value Reference Range Interpretation Comments Glucose POC (test 201 mg/dL 70-115 H Notify RN or MDIf you code = Glucose POC) consider your patient critically ill, the Merlin-Accu Chec k Infrom II meter should not be used for Glucos e determination. Draw a venous Glucose and send to the main Lab for analysis. 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 Draw a venous Glucose and send to the main Lab for analysis. 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 Draw a venous Glucose and send to the main Lab for analysis. 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 Draw a venous Glucose and send to the main Lab for analysis. 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 Draw a venous Glucose and send to the main Lab for analysis. IG [id number] 06:50:39 Test Item Value Reference Range Interpretation Comments IG (test code = IG) 0.7 % 0.0-5.0 IG Abs (test code = IG Abs) 0 x10 N Complete Blood Count with Aeisapmabtkk6850-35-09 06:50:38 Test Item Value Reference Range Interpretation [...] code = IPF) 0 % N Automated Sknaqurvvedp7350-11-23 06:50:38 Test Item Value Reference Range Interpretation Comments Neutro Auto (test code = Neutro 50.3 % 36.0-70.0 Auto) Lymph Auto (test code = Lymph Auto) 38.6 % 12.0-44.0 Highlands Auto (test code = Highlands Auto) 7.3 % 0.0-11.0 Eos, Auto (test code = Eos, Auto) 2.4 % 0.0-7.0 Basophil Auto (test code = Basophil 0.7 % 0.0-2.0 Auto) Neutro Absolute (test code = Neutro 3.0 x10 1.6-7.4 Absolute) Lymph Absolute (test code = Lymph 2.28 x10 .50-4.60 Absolute) [place]lands Absolute (test code = [place] .43 x10 .00-1.20 Absolute) Eos Absolute (test code = Eos 0.14 x10 0.00-0.74 Absolute) Baso Absolute (test code = Baso 0.04 x10 0.00-0.21 Absolute) Basic Metabolic [id number] 05:38:20 Test Item Value Reference Range Interpretation [...] = Lipemia) 0 mg/dL 8-11 Basic Metabolic [id number] 05:38:20 Test Item Value Reference Range Interpretation [...] = 0 mg/dL 8-11 Lipemia) Basic Metabolic [id number] 05:38:20 Test Item Value Reference Range Interpretation [...] code = 0 mg/dL 8-11 Lipemia) POC [id number] 20:28:33 Test Item Value Reference Range Interpretation Comments Glucose POC (test 169 mg/dL 70-115 H 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 Draw a venous Glucose and send to the main Lab for analysis. POC [id number] 16:39:30 Test Item Value Reference Range Interpretation Comments Glucose POC (test 103 mg/dL 70-115 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 Draw a venous Glucose and send to the main Lab for analysis. RPR Tvccnfppisc8013-52-22 12:08:56 Test Item Value Reference Range Interpretation Comments RPR Qual (test code = RPR Qual) Non-Reactive Non-Reactive Reactive Control (test code = Reactive Reactive Control) Weak Reactive Control (test Weak Reactive code = Weak Reactive Control) Non-Reactive Control (test code Non-Reactive = Non-Reactive Control) Lot # (test code = Lot #) [id number] N Expiration Dt (test code = 03-20-2021 N Expiration Dt) POC [id number] 11:52:31 Test Item Value Reference Range Interpretation Comments Glucose POC (test 250 mg/dL 70-115 H 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 Draw a venous Glucose and send to the main Lab for analysis. POC [id number] 07:55:29 Test Item Value Reference Range Interpretation Comments Glucose POC (test 205 mg/dL 70-115 H 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 Draw a venous Glucose and send to the main Lab for analysis. Lipid [id number] 05:46:04 Test Item Value Reference Range Interpretation [...] LDL/HDL Ratio=L DL Calc/HDL Chol Thyroid Stimulating [id number] 05:46:04 Test Item Value Reference Range Interpretation Comments TSH (test code = TSH) 3.274 mcIU/mL 0.550-4.780 Hemoglobin [id number] 05:41:08 Test Item Value Reference Range Interpretation Comments Hemoglobin A1c (test code 7.6 % 4.0-5.8 H Di abetic >=6.5 = Hemoglobin A1c) %Prediabet es 5.7-6.4 %Normal <5.7 % Hepatitis B Surface [id number] 21:19:36 Test Item Value Reference Range Interpretation Comments Hep Bs Ag (test code = Hep Bs Non-Reactive Non-Reactive Ag) Novel Coronavirus SARS-CoV-2, [id number] 11:16:16 Test Item Value Reference Range Interpretation [...] Emergency Use Authorization." Novel Coronavirus (COVID-19), EMANUEL [id number] 11:11:24TNPTest not sent and performed at [facility].Rapid was perfomed in Microbiology.Wrong covid test was ord ered.Urine DOA [id number] 00:17:49 Test Item Value Reference Range Interpretation [...] Propoxyphene Confirmation wi thin 7 days. Alcohol [id number] 00:17:29 Test Item Value Reference Range Interpretation Comments Ethanol Level 9.0 mg/dL N The pharmacolo gical (test code = response to blo od alcohol Ethanol Level) levels may va ry from individual to i ndividual. The fatal omkar ntration has been report ed to be >400 mg/dl. Comprehensive Metabolic [id number] 00:17:28 Test Item Value Reference Range Interpretation [...] = Lipemia) 0 g/dL 1-2 Comprehensive Metabolic [id number] 00:17:28 Test Item Value Reference Range Interpretation [...] = 0 g/dL 1-2 Lipemia) Comprehensive Metabolic [id number] 00:17:28 Test Item Value Reference Range Interpretation [...] g/dL 1-2 Lipemia) Complete Blood Count with Hwljdiddlktn8446-05-68 23:26:28 Test Item Value Reference Range Interpretation [...] code = IPF) 0 % N Automated [id number] 23:26:28 Test Item Value Reference Range Interpretation Comments Neutro Auto (test code = Neutro 67.1 % 36.0-70.0 Auto) Lymph Auto (test code = Lymph Auto) 23.3 % 12.0-44.0 [place] Auto (test code = Highlands Auto) 5.8 % 0.0-11.0 Eos, Auto (test code = Eos, Auto) 2.3 % 0.0-7.0 Basophil Auto (test code = Basophil 0.8 % 0.0-2.0 Auto) Neutro Absolute (test code = Neutro 6.0 x10 1.6-7.4 Absolute) Lymph Absolute (test code = Lymph 2.10 x10 .50-4.60 Absolute) [place]lands Absolute (test code = [place] .52 x10 .00-1.20 Absolute) Eos Absolute (test code = Eos 0.21 x10 0.00-0.74 Absolute) Baso Absolute (test code = Baso 0.07 x10 0.00-0.21 Absolute) IG [id number] 23:26:28 Test Item Value Reference Range Interpretation Comments IG (test code = IG) 0.7 % 0.0-5.0 IG Abs (test code = IG Abs) 0 x10 N HERPES VIRUS ANTIBODY, [id number] 21:46:00 Test Item Value Reference Range Interpretation Comments HERPES VIRUS IGM (BEAKER) Negative SE E ATTACHMENT (test code = 1808) BLOOD [id number] 06:00:00 Test Item Value Reference Range Interpretation Comments CULTURE (BEAKER) (test No growth in 5 days code = 1095) BLOOD [id number] 06:00:00 Test Item Value Reference Range Interpretation Comments CULTURE (BEAKER) (test No growth in 5 days code = 1095) POCT-GLUCOSE [id number] 12:11:00 Test Item Value Reference Range Interpretation Comments POC-GLUCOSE METER 154 mg/dL 70-110 H TESTED AT [place] [address] ([facility]) (test code = [place] [address]) [address] POCT-GLUCOSE [id number] 07:53:00 Test Item Value Reference Range Interpretation Comments POC-GLUCOSE METER 87 mg/dL 70-110 TESTED AT [place] [address] ([facility]) (test code = [place] [facility] [address]) POCT-GLUCOSE [id number] 06:49:00 Test Item Value Reference Range Interpretation Comments POC-GLUCOSE METER 79 mg/dL 70-110 TESTED AT [place] [address] (BEAKER) (test code = [place] [address]38) COMPREHENSIVE METABOLIC [id number] 06:15:00 Test Item Value Reference Range Interpretation [...] S NOT APPLICABLE FOR DIALYSIS PATIEN TS. [id number] 06:11:00 Test Item Value Reference Range Interpretation Comments MAGNESIUM (BEAKER) (test code = 2.1 mg/dL 1.6-2.6 627) HEPATIC FUNCTION [id number] 06:11:00 Test Item Value Reference Range Interpretation [...] code = 513 U/L 6-55 H 347) [id number] 05:30:00 Test Item Value Reference Range Interpretation Comments FIBRINOGEN LEVEL (BEAKER) (test 368 mg/dl 225-434 code = 658) [id number] 05:30:00 Test Item Value Reference Range Interpretation Comments PARTIAL THROMBOPLASTIN TIME 42.2 seconds 22.5-36.0 H (BEAKER) (test code = 760) PROTHROMBIN [id number] 05:29:00 Test Item Value Reference Range Interpretation Comments PROTIME (BEAKER) (test code = 14.8 seconds 11.7-14.7 H 759) INR (BEAKER) (test code = 370) 1.2 <=5.9 RECOMMENDED COUMADIN/WARFARIN INR THERAPY RANGESSTANDARD DOSE: 2.0 - 3.0 Includes: PROPHYLAXIS for venous thrombosis, systemic embolization; TREATMENT for venous thrombosis and/or pulmonary embolus.HIGH RISK: Target INR is 2.5-3.5 for patients with mechanical heart valves.POCT-GLUCOSE [id number] 21:09:00 Test Item Value Reference Range Interpretation Comments POC-GLUCOSE METER 178 mg/dL 70-110 H TESTED AT [facility] [address] ([facility]) (test code = [place] [address]) [address] POCT-GLUCOSE [id number] 17:18:00 Test Item Value Reference Range Interpretation Comments POC-GLUCOSE METER 178 mg/dL 70-110 H TESTED AT [facility] [address] ([facility]) (test code = [place] 15[address]) [address] POCT-GLUCOSE [id number] 13:48:00 Test Item Value Reference Range Interpretation Comments POC-GLUCOSE METER 150 mg/dL 70-110 H TESTED AT [facility] [address] ([facility]) (test code = [place] [facility] 1538) [address] FACTOR 5 ACTIVITY (BLEEDING RISK)2017-01-06 10:04:00 Test Item Value Reference Range Interpretation Comments FACTOR V ACTIVITY ([facility]) (test code 90.0 % 60.0-150.0 = 665) Effective 10/24/2013: Reference Range Change-Adult onlyNew: 60.0-150.0 Previous: 50.0-150.0CYTOMEGALOVIRUS ANTIBODY, [id number] 09:42:00 Test Item Value Reference Range Interpretation Comments CYTOMEGALOVIRUS IGM ANTIBODY Negative ([facility]) (test code = 816) HERPES VIRUS ANTIBODY, [id number] 08:59:00 Test Item Value Reference Range Interpretation Comments 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[facility]) (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 G 1807) CYTOMEGALOVIRUS ANTIBODY, [id number] 08:59:00 Test Item Value Reference Range Interpretation Comments CYTOMEGALOVIRUS IGG ANTIBODY Positive ([facility]) (test code = 790) EBV-VCA ANTIBODY, [id number] 08:59:00 Test Item Value Reference Range Interpretation Comments JASE-WALL VCA IGG ([facility]) (test Positive code = 983) EBV-VCA ANTIBODY, [id number] 08:59:00 Test Item Value Reference Range Interpretation Comments JASE-WALL VCA IGM ([facility]) (test Negative code = 984) POCT-GLUCOSE [id number] 07:59:00 Test Item Value Reference Range Interpretation Comments POC-GLUCOSE METER 81 mg/dL 70-110 TESTED AT [place] [address] ([facility]) (test code = [place] [facility] [address]) COMPREHENSIVE METABOLIC [id number] 06:23:00 Test Item Value Reference Range Interpretation Comments TOTAL PROTEIN 5.3 gm/dL 6.0-8.3 L ([facility]) (test code = 770) ALBUMIN ([facility]) 2.4 g/dL 3.5-5.0 L (test code = 1145) ALKALINE PHOSPHATASE 85 U/L 40-150 ([facility]) (test code = 346) BILIRUBIN TOTAL 1.5 mg/dL 0.2-1.2 H ([facility]) (test code = 377) [...] S NOT APPLICABLE FOR DIALYSIS PATIEN TS. [id number] 06:17:00 Test Item Value Reference Range Interpretation Comments MAGNESIUM (BEAKER) (test code = 1.8 mg/dL 1.6-2.6 627) HEPATIC FUNCTION [id number] 06:17:00 Test Item Value Reference Range Interpretation [...] code = 779 U/L 6-55 H 347) [id number] 06:00:00 Test Item Value Reference Range Interpretation Comments FIBRINOGEN LEVEL ([facility]) (test 390 mg/dl 225-434 code = 658) [id number] 06:00:00 Test Item Value Reference Range Interpretation Comments PARTIAL THROMBOPLASTIN TIME 40.2 seconds 22.5-36.0 H ([facility]) (test code = 760) PROTHROMBIN TIME/[id number] 05:59:00 Test Item Value Reference Range Interpretation Comments PROTIME ([facility]) (test code = 14.6 seconds 11.7-14.7 759) INR ([facility]) (test code = 370) 1.2 <=5.9 RECOMMENDED COUMADIN/WARFARIN INR THERAPY RANGESSTANDARD DOSE: 2.0 - 3.0 Includes: PROPHYLAXIS for venous thrombosis, systemic embolization; TREATMENT for venous thrombosis and/or pulmonary embolus.HIGH RISK: Target INR is 2.5-3.5 for patients with mechanical heart valves.POCT-GLUCOSE [id number] 21:46:00 Test Item Value Reference Range Interpretation Comments POC-GLUCOSE METER 153 mg/dL 70-110 H TESTED AT [place] [address] ([facility]) (test code = [place] [facility] 1538) [address] POCT-GLUCOSE [id number] 18:47:00 Test Item Value Reference Range Interpretation Comments POC-GLUCOSE METER 181 mg/dL 70-110 H TESTED AT [place] [address] ([facility]) (test code = [place] [facility] 1538) [address] POCT-GLUCOSE [id number] 12:40:00 Test Item Value Reference Range Interpretation Comments POC-GLUCOSE METER 178 mg/dL 70-110 H TESTED AT [place] [address] ([facility]) (test code = [place] Denny [facility] 1538) [address] POCT-GLUCOSE [id number] 07:51:00 Test Item Value Reference Range Interpretation Comments POC-GLUCOSE METER 166 mg/dL 70-110 H TESTED AT [place] [address] ([facility]) (test code = [place] [facility] 1538) [address] COMPREHENSIVE METABOLIC [id number] 03:26:00 Test Item Value Reference Range Interpretation Comments TOTAL PROTEIN 5.2 gm/dL 6.0-8.3 L ([facility]) (test code = 770) ALBUMIN (BEAKER) 2.3 [...] S NOT APPLICABLE FOR DIALYSIS PATIEN TS. [id number] 03:22:00 Test Item Value Reference Range Interpretation Comments MAGNESIUM (BEAKER) (test code = 1.4 mg/dL 1.6-2.6 L 627) HEPATIC FUNCTION [id number] 03:22:00 Test Item Value Reference Range Interpretation [...] code = 1009 U/L 6-55 H 347) [id number] 03:12:00 Test Item Value Reference Range Interpretation Comments AMMONIA (BEAKER) (test code = 348) 29 mol/L 18-72 [id number] 03:10:00 Test Item Value Reference Range Interpretation Comments PARTIAL THROMBOPLASTIN TIME 42.3 seconds 22.5-36.0 H (BEAKER) (test code = 760) PROTHROMBIN [id number] 03:09:00 Test Item Value Reference Range Interpretation Comments PROTIME (BEAKER) (test code = 16.4 seconds 11.7-14.7 H 759) INR (BEAKER) (test code = 370) 1.3 <=5.9 RECOMMENDED COUMADIN/WARFARIN INR THERAPY RANGESSTANDARD DOSE: 2.0 - 3.0 Includes: PROPHYLAXIS for venous thrombosis, systemic embolization; TREATMENT for venous thrombosis and/or pulmonary embolus.HIGH RISK: Target INR is 2.5-3.5 for patients with mechanical heart valves.[id number] 03:09:00 Test Item Value Reference Range Interpretation Comments FIBRINOGEN LEVEL (BEAKER) (test 413 mg/dl 225-434 code = 658) CBC W/PLT COUNT & AUTO [id number] 03:09:00 Test Item Value Reference Range Interpretation [...] L 0.00-0.20 (test code = 417) 0.00POCT-GLUCOSE [id number] 22:33:00 Test Item Value Reference Range Interpretation Comments POC-GLUCOSE METER 230 mg/dL 70-110 H TESTED AT [facility] (test code = [facility] [place] 1538) [address] POCT-GLUCOSE [id number] 18:17:00 Test Item Value Reference Range Interpretation Comments POC-GLUCOSE METER 222 mg/dL 70-110 H TESTED AT [facility] 67[address] [facility] (test code = [facility] [place] 1538) [address] COMPREHENSIVE METABOLIC [id number] 16:59:00 Test Item Value Reference Range Interpretation [...] PATIEN TS. PERIPHERAL BLOOD SMEAR - PATHOLOGIST [id number] 15:30:00 Test Item Value Reference Range Interpretation Comments RBC MORPHOLOGY Polychromasia (BEAKER) (test code = 2846) RBC MORPHOLOGY Anisocytosis (BEAKER) (test code = 87019) PERIPHERAL SMR REVIEW Cell counts confirmed (BEAKER) (test code = 7589) [id number] Josefina Lara M.D. (BEAKER) (test code = (electronic signature) 5756) PROTHROMBIN TIME/[id number] 15:12:00 Test Item Value Reference Range Interpretation [...] Reference Range Interpretation Comments ANTI-NUCLEAR ANTIBODY (IVETTE) ([employer]) Negative Negative (test code = 418) POCT-GLUCOSE [id number] 12:47:00 Test Item Value Reference Range Interpretation Comments POC-GLUCOSE METER 212 mg/dL 70-110 H TESTED AT [facility] 67[address] ([facility]) (test code = [place] 1538) [address] [id number] 12:34:00 Test Item Value Reference Range Interpretation Comments RPR SCREEN ([employer]) (test code = Nonreactive Nonreactive 420) CLOSTRIDIUM DIFFICILE TOXIN [id number] 10:12:00 Test Item Value Reference Range Interpretation Comments CLOSTRIDIUM DIFFICILE TOXIN, PCR Not Detected Not Detected ([facility]) (test code = 1525) This qualitative real-time [...] Reference Range Interpretation Comments FACTOR V ACTIVITY ([facility]) (test code 86.0 % 60.0-150.0 = 665) Effective 10/24/2013: Reference Range Change-Adult onlyNew: 60.0-150.0 Previous: 50.0-150.0FACTOR 5 ACTIVITY (BLEEDING RISK)2017-01-04 09:13:00 Test Item Value Reference Range Interpretation Comments FACTOR V ACTIVITY (BEAKER) (test code 56.0 % 60.0-150.0 L = 665) Effective 10/24/2013: Reference Range Change-Adult onlyNew: 60.0-150.0 Previous: 50.0-150.0POCT-GLUCOSE [id number] 06:40:00 Test Item Value Reference Range Interpretation Comments POC-GLUCOSE METER 167 mg/dL 70-110 H TESTED AT [facility] 67[address] (BEAKER) (test code = [place] 1538) [address] COMPREHENSIVE METABOLIC [id number] 04:08:00 Test Item Value Reference Range Interpretation [...] ESTIM ATED GFR. Specimen slightly ictericHEPATIC FUNCTION [id number] 04:06:00 Test Item Value Reference Range Interpretation [...] 1091 U/L 6-55 H 347) Specimen slightly [id number] 04:01:00 Test Item Value Reference Range Interpretation Comments FIBRINOGEN LEVEL (BEAKER) (test 379 mg/dl 225-434 code = 658) [id number] 04:01:00 Test Item Value Reference Range Interpretation Comments PARTIAL THROMBOPLASTIN TIME 40.7 seconds 22.5-36.0 H (BEAKER) (test code = 760) PROTHROMBIN [id number] 04:00:00 Test Item Value Reference Range Interpretation [...] mechanical heart valves.CBC W/PLT COUNT & AUTO [id number] 03:56:00 Test Item Value Reference Range Interpretation [...] L 0.00-0.20 (test code = 417) 0.00POCT-GLUCOSE [id number] 00:19:00 Test Item Value Reference Range Interpretation Comments POC-GLUCOSE METER 159 mg/dL 70-110 H TESTED AT [facility] 6720 (BEAKER) (test code = [place] 1538) [address] POCT-GLUCOSE [id number] 18:56:00 Test Item Value Reference Range Interpretation Comments POC-GLUCOSE METER 192 mg/dL 70-110 H TESTED AT [facility] [address] [facility] (test code = [place]enny [facility] 1538) [address] COMPREHENSIVE METABOLIC [id number] 16:55:00 Test Item Value Reference Range Interpretation [...] CALCULATE ESTIM ATED GFR. Specimen slightly ictericPROTHROMBIN TIME/[id number] 16:37:00 Test Item Value Reference Range Interpretation Comments PROTIME (BEAKER) (test code = 20.9 seconds 11.7-14.7 H 759) INR (BEAKER) (test code = 370) 1.8 <=5.9 RECOMMENDED COUMADIN/WARFARIN INR THERAPY RANGESSTANDARD DOSE: 2.0 - 3.0 Includes: PROPHYLAXIS for venous thrombosis, systemic embolization; TREATMENT for venous thrombosis and/or pulmonary embolus.HIGH RISK: Target INR is 2.5-3.5 for patients with mechanical heart valves.HEPATITIS B SURFACE [id number] 14:05:00 Test Item Value Reference Range Interpretation Comments HEPATITIS B SURFACE ANTIBODY < mIU/mL <8.0 (BEAKER) (test code = 647) HEPATITIS B CORE ANTIBODY, [id number] 13:43:00 Test Item Value Reference Range Interpretation Comments HEPATITIS B CORE TOTAL ANTIBODY Nonreactive Nonreactive (BEAKER) (test code = 497) BLOOD GAS, [id number] 13:35:00 Test Item Value Reference Range Interpretation [...] code = 1819) 28.0 % URINALYSIS W/ [id number] 13:16:00 Test Item Value Reference Range Interpretation [...] 1584) SOURCE(BEAKER) (test code = Urine, [place] 7901) VITAMIN D, 34-[id number] 13:14:00 Test Item Value Reference Range Interpretation Comments VITAMIN D 25-OH (BEAKER) (test code = < ng/mL 13.0-47.8 L 2764) ALPHA FETOPROTEIN (AFP), TUMOR [id number] 13:06:00 Test Item Value Reference Range Interpretation Comments ALPHA-FETOPROTEIN (BEAKER) (test code < ng/mL <10.0 = 1094) Effective 05/08/2014: Reference Range ChangeNew: <10.0 Previous: 0.0-8.0 HEMOGLOBIN [id number] 13:05:00 Test Item Value Reference Range Interpretation Comments HEMOGLOBIN A1C (BEAKER) (test code = 7.6 % 4.3-6.1 H 368) CARCINOEMBRYONIC ANTIGEN (CEA)2017-01-03 12:59:00 Test Item Value Reference Range Interpretation Comments CARCINOEMBRYONIC ANTIGEN (BEAKER) 2.0 ng/mL 0.0-5.0 (test code = 685) [id number] 12:59:00 Test Item Value Reference Range Interpretation Comments FERRITIN (BEAKER) (test code = 1841 ng/mL 5-275 H 361) Effective 05/08/2014: Reference Range ChangeNew: Male 5-275 Previous: Male 22- 322 Female 5-275 Female [id number] 12:58:00 Test Item Value Reference Range Interpretation Comments T4 TOTAL (BEAKER) (test code = 895) 4.5 ug/dL 4.9-11.7 L [id number] 12:58:00 Test Item Value Reference Range Interpretation Comments THYROID STIMULATING HORMONE 1.79 uIU/mL 0.35-4.94 (BEAKER) (test code = 772) [id number] 12:58:00 Test Item Value Reference Range Interpretation Comments T3 TOTAL (BEAKER) (test code = 656) 34 ng/dL 48-159 L Effective 05/08/2014: Reference Range ChangeNew: 48-159 Previous: 60-181CALCIUM, [id number] 12:47:00 Test Item Value Reference Range Interpretation Comments CALCIUM IONIZED (BEAKER) (test 1.05 mmol/L 1.12-1.27 L code = 698) PH, BLOOD (BEAKER) (test code = 7.43 1810) [id number] 12:42:00 Test Item Value Reference Range Interpretation [...] % 20-55 (test code = 2590) URIC [id number] 12:40:00 Test Item Value Reference Range Interpretation Comments URIC ACID (BEAKER) (test code = 16.0 mg/dL 2.6-7.2 H 773) Specimen slightly ictericLIPID [id number] 12:40:00 Test Item Value Reference Range Interpretation [...] 160-189 Very High >=190 Specimen slightly ictericBILIRUBIN, [id number] 12:40:00 Test Item Value Reference Range Interpretation Comments BILIRUBIN DIRECT ([facility]) (test 2.4 mg/dL 0.1-0.5 H code = 706) GAMMA GLUTAMYL TRANSFERASE (GGT)2017-01-03 12:40:00 Test Item Value Reference Range Interpretation Comments GAMMA GLUTAMYL TRANSFERASE ([employer]) 53 U/L 9-64 (test code = 364) Specimen slightly [id number] 12:39:00 Test Item Value Reference Range Interpretation Comments ETHANOL ([employer]) (test code = 400) < mg/dL <=10 SCREEN, [id number] 12:36:00 Test Item Value Reference Range Interpretation Comments TEST URINE ([facility]) (test Negative code = 583) POCT-GLUCOSE [id number] 12:34:00 Test Item Value Reference Range Interpretation Comments POC-GLUCOSE METER 189 mg/dL 70-110 H TESTED AT [facility] 6720 ([facility]) (test code = [place] Denny [facility] 1538) [address] HIV-1 ANTIGEN WITH HIV-1/2 [id number] 11:58:00 Test Item Value Reference Range Interpretation Comments HIV-1 ANTIGEN WITH HIV 1\\T\\2 Nonreactive Nonreactive ANTIBODY (2) ([facility]) (test code = 2586) TROPONIN [id number] 09:44:00 Test Item Value Reference Range Interpretation Comments TROPONIN I ([facility]) (test code = 0.34 ng/mL 0.00-0.03 397) [...] 0.0-4.9CK-MB Reference Range:<6.7 Normal6.7-10.0 Borderline>10.0 Abnormal ACETAMINOPHEN [id number] 08:31:00 Test Item Value Reference Range Interpretation Comments ACETAMINOPHEN LEVEL (BEAKER) (test < ug/mL 10.0-30.0 L code = 344) TROPONIN [id number] 05:53:00 Test Item Value Reference Range Interpretation [...] acute neurological disease, and persistent tachyarrhythmia.BASIC METABOLIC [id number] 05:53:00 Test Item Value Reference Range Interpretation [...] TO CALCULA TE ESTIMATED GFR. Specimen slightly uvioyjrZSRDBYQSZW0551-69-03 05:52:00 Test Item Value Reference Range Interpretation Comments PHOSPHORUS (BEAKER) (test code = 5.7 mg/dL 2.3-4.7 H 604) HEPATIC FUNCTION [id number] 05:52:00 Test Item Value Reference Range Interpretation [...] Specimen slightly ictericCREATINE KINASE (CK), TOTAL AND [id number] 05:52:00 Test Item Value Reference Range Interpretation Comments CREATINE KINASE TOTAL (BEAKER) 341 U/L 29-200 H (test code = 380) CREATINE KINASE-MB (BEAKER) (test 5.4 ng/mL 0.0-6.6 code = 750) CREATINE KINASE-MB INDEX (BEAKER) 1.6 % (test code = 395) Effective 05/08/2014: CK-MB Reference Range ChangeNew: 0.0-6.6 Previous: 0.0-4.9CK-MB Reference Range:<6.7 Normal6.7-10.0 Borderline>10.0 Abnormal CBC W/PLT COUNT & AUTO [id number] 05:48:00 Test Item Value Reference Range Interpretation [...] K/ L 0.00-0.20 (test code = 417) 0.53ZNPWWFLGDL3063-61-81 05:09:00 Test Item Value Reference Range Interpretation Comments FIBRINOGEN LEVEL (BEAKER) (test 427 mg/dl 225-434 code = 658) [id number] 05:09:00 Test Item Value Reference Range Interpretation Comments PARTIAL THROMBOPLASTIN TIME 36.2 seconds 22.5-36.0 H (BEAKER) (test code = 760) PROTHROMBIN [id number] 05:08:00 Test Item Value Reference Range Interpretation Comments PROTIME (BEAKER) (test code = 22.8 seconds 11.7-14.7 H 759) INR (BEAKER) (test code = 370) 2.0 <=5.9 RECOMMENDED COUMADIN/WARFARIN INR THERAPY RANGESSTANDARD DOSE: 2.0 - 3.0 Includes: PROPHYLAXIS for venous thrombosis, systemic embolization; TREATMENT for venous thrombosis and/or pulmonary embolus.HIGH RISK: Target INR is 2.5-3.5 for patients with mechanical heart valves.HEPATITIS PANEL, [id number] 03:40:00 Test Item Value Reference Range Interpretation Comments HEPATITIS A IGM ANTIBODY (BEAKER) Nonreactive Nonreactive (test code = 498) HEPATITIS B CORE IGM ANTIBODY Nonreactive Nonreactive (BEAKER) (test code = 645) HEPATITIS C ANTIBODY (BEAKER) Nonreactive Nonreactive (test code = 367) HEPATITIS B SURFACE ANTIGEN (2) Nonreactive Nonreactive (BEAKER) (test code = 2585) CREATININE, RANDOM [id number] 03:18:00 Test Item Value Reference Range Interpretation Comments CREATININE URINE (BEAKER) (test 118.7 mg/dL code = 375) Reference Range: No NormalsSODIUM, RANDOM [id number] 03:18:00 Test Item Value Reference Range Interpretation Comments SODIUM URINE (BEAKER) (test code = 60 meq/L 243) Reference Range: No NormalsUREA NITROGEN, RANDOM [id number] 03:18:00 Test Item Value Reference Range Interpretation Comments UREA NITROGEN URINE (BEAKER) (test 303 mg/dL code = 538) Reference Range: No [id number] 03:07:00 Test Item Value Reference Range Interpretation Comments AMMONIA (BEAKER) (test code = 348) 48 mol/L 18-72 V-[id number] 02:57:00 Test Item Value Reference Range Interpretation [...] within 95-100% range. URINALYSIS W/ REFLEX URINE [id number] 02:53:00 Test Item Value Reference Range Interpretation [...] = 514) SOURCE(BEAKER) (test code = 2795) [id number] 02:49:00 Test Item Value Reference Range Interpretation Comments PARTIAL THROMBOPLASTIN TIME 39.4 seconds 22.5-36.0 H (BEAKER) (test code = 760) PROTHROMBIN [id number] 02:48:00 Test Item Value Reference Range Interpretation Comments PROTIME (BEAKER) (test code = 22.0 seconds 11.7-14.7 H 759) INR (BEAKER) (test code = 370) 1.9 <=5.9 RECOMMENDED COUMADIN/WARFARIN INR THERAPY RANGESSTANDARD DOSE: 2.0 - 3.0 Includes: PROPHYLAXIS for venous thrombosis, systemic embolization; TREATMENT for venous thrombosis and/or pulmonary embolus.HIGH RISK: Target INR is 2.5-3.5 for patients with mechanical heart valves.[id number] 02:48:00 Test Item Value Reference Range Interpretation Comments FIBRINOGEN LEVEL (BEAKER) (test 421 mg/dl 225-434 code = 658) BLOOD GAS, [id number] 02:43:00 Test Item Value Reference Range Interpretation [...] 21.0 % CBC W/PLT COUNT & AUTO [id number] 02:43:00 Test Item Value Reference Range Interpretation [...] code = 417) 0.00LACTIC ACID, VENOUS, WHOLE [id number] 02:35:00 Test Item Value Reference Range Interpretation Comments LACTATE BLOOD VENOUS (2) (BEAKER) 0.8 mmol/L 0.5-2.2 (test code = 2872) Effective 10/23/2015: Units/Reference Range ChangeNew: 0.5-2.2 mmol/L Previous: 5- 20 mg/dLSpecimen slightly tjvkypiYRLTCAEONIFF8695-00-28 11:32:00 Test Item Value Reference Range Interpretation Comments AGAP (test code = AGAP) 14.6 10.0-20.0 [facility]WyvdlnoADWDBYRCICIX8713-65-75 11:32:00 Test Item Value Reference Range Interpretation Comments eGFR (test code = eGFR) 33 [facility] CenterJmuwljnQKXYRJCGZPOQ2506-61-04 11:32:00 Test Item Value Reference Range Interpretation Comments Calcium Lvl (test code = Calcium Lvl) 8.3 8.5-10.5 [facility] CenterEtslydaGUZAMSLNECBV2400-67-29 11:32:00 Test Item Value Reference Range Interpretation Comments Glucose Lvl (test code = Glucose Lvl) 81 70-99 [facility] CenterQhhttlcBFZUZYNQGCIF6948-11-50 11:32:00 Test Item Value Reference Range Interpretation Comments Creatinine Lvl (test code = Creatinine 1.95 0.50-1.40 Lvl) [facility] CenterUysqencTDDWOTLFVWUO7036-55-32 11:32:00 Test Item Value Reference Range Interpretation Comments BUN (test code = BUN) 55 7-22 [facility] CenterSkgbtxrGHFDKPBRBPHD0872-32-13 11:32:00 Test Item Value Reference Range Interpretation Comments CO2 (test code = CO2) 19 24-32 [facility] CenterEliiiqcYYRGVWCDOOUE1231-10-52 11:32:00 Test Item Value Reference Range Interpretation Comments Chloride Lvl (test code = Chloride Lvl) 110 95-109 [facility] CenterLkttltuJIIQLKJQVDBQ0781-78-20 11:32:00 Test Item Value Reference Range Interpretation Comments Sodium Lvl (test code = Sodium Lvl) 139 135-145 [facility] CenterTszkfbqKFYCQHQAPGPV2779-93-98 11:32:00 Test Item Value Reference Range Interpretation Comments Potassium Lvl (test code = Potassium 4.6 3.5-5.1 Lvl) [facility] 11:32:00 Test Item Value Reference Range Interpretation Comments Lymphocytes (test code = Lymphocytes) 30.4 20.0-40.0 [facility]IjnfdiiKPYHVTFCHC8410-25-45 11:32:00 Test Item Value Reference Range Interpretation Comments Eosinophils (test code = 4.5 See_Comment [A utomated message] The Eosinophils) system which ge nerated this result tra nsmitted reference range : <=4.0. The reference r leo was not used to int erpret this result as normal/abnormal . [facility]anoDvlyfueGGADYVWSEO7425-64-66 11:32:00 Test Item Value Reference Range Interpretation Comments Monocytes (test code = Monocytes) 13.7 2.0-12.0 [facility]anoAijltvfUEBIIANSOK1758-25-16 11:32:00 Test Item Value Reference Range Interpretation Comments Segs-Bands # (test code = Segs-Bands #) 2.6 1.5-8.1 [facility]anoAuxsbjdZBDUMYDXGI2607-99-64 11:32:00 Test Item Value Reference Range Interpretation Comments Basophils (test code = 0.7 See_Comment [Aut omated message] The Basophils) system which ge nerated this result tra nsmitted reference range : <=1.0. The reference r leo was not used to int erpret this result as normal/abnormal . [facility]anoWbsjjkeAUFCZHFRUB0318-96-00 11:32:00 Test Item Value Reference Range Interpretation Comments Monocytes # (test code 0.7 See_Comment [Aut omated message] The = Monocytes #) system which generated this result tra nsmitted reference range : <=0.8. The reference r leo was not used to int erpret this result as normal/abnormal . [facility]anoBkyodvbQRUAVQOZPK9083-75-13 11:32:00 Test Item Value Reference Range Interpretation Comments Lymphocytes # (test code = Lymphocytes 1.6 1.0-5.5 #) [facility]anoKfxwpqcVLXXZQAFCE8298-08-25 11:32:00 Test Item Value Reference Range Interpretation Comments Eosinophils # (test code 0.2 See_Comment [A utomated message] The = Eosinophils #) system whic h generated this result tra nsmitted reference range : <=0.5. The reference r leo was not used to int erpret this result as normal/abnormal . [facility]anoRizgptdBVHJRAKCQK5957-95-42 11:32:00 Test Item Value Reference Range Interpretation Comments Segs (test code = Segs) 50.7 45.0-75.0 [facility]anoEgycqmcGGEHMXWKOO9032-27-07 11:32:00 Test Item Value Reference Range Interpretation [...] iron deficiency anemia, and renal disease. CPT: 30897 [facility]anoEnmkrfzTUCVXNVBRS9058-79-98 11:32:00 Test Item Value Reference Range Interpretation Comments Hct (test code = Hct) 28.1 36.0-48.0 [facility]anoRtfxqnaRWSYWETTFV5304-76-42 11:32:00 Test Item Value Reference Range Interpretation Comments RBC (test code = RBC) 3.39 4.20-5.40 [facility]anoDlhluerZRBEFNPMTG4970-69-55 11:32:00 Test Item Value Reference Range Interpretation Comments Hgb (test code = Hgb) 8.9 12.0-16.0 [facility]anoIqhlvdqVHLHOZBBKY6922-41-49 11:32:00 Test Item Value Reference Range Interpretation Comments WBC (test code = WBC) 5.1 3.7-10.4 [facility]anoGvtcejxZDYHDWNHTC4100-00-89 11:32:00 Test Item Value Reference Range Interpretation Comments MPV (test code = MPV) 11.3 7.4-10.4 [facility]anoVekzswcSXYVVHEPTV8086-58-77 11:32:00 Test Item Value Reference Range Interpretation Comments Platelet (test code = Platelet) 118 133-450 [facility]anoPcwjtyhUMYUJHXHWI5892-62-36 11:32:00 Test Item Value Reference Range Interpretation Comments MCHC (test code = MCHC) 31.8 32.0-36.0 [facility]anoWfoltttQSLQZOKZOX5642-81-94 11:32:00 Test Item Value Reference Range Interpretation Comments RDW (test code = RDW) 18.0 11.5-14.5 [facility]anoBcpvngrQSWYEOWRYI5800-23-45 11:32:00 Test Item Value Reference Range Interpretation Comments MCV (test code = MCV) 83.0 80.0-98.0 [facility]anoCpkuivySWWXGKXROG1562-57-43 11:32:00 Test Item Value Reference Range Interpretation Comments MCH (test code = MCH) 26.4 pg 27.0-31.0 [facility]QxiapljZFXHQMNKUO9924-85-62 11:32:00 Test Item Value Reference Range Interpretation Comments C3 Complement (test code = C3 137 88-201 Complement) [facility] TempleFldpzdoEOXYDYJPIS9495-95-80 11:32:00 Test Item Value Reference Range Interpretation Comments HIV. (test code = Negative *NA*(07/30/16 HIV.) 5:32 AM) [facility] CenterFxpvbqiPSIEOYHBCDKU3862-77-94 11:32:00 Test Item Value Reference Range Interpretation Comments AGAP (test code = AGAP) 14.6 10.0-20.0 [facility] CenterGbosqlpLMJDXGXOJHSL1008-29-78 11:32:00 Test Item Value Reference Range Interpretation Comments eGFR (test code = eGFR) 33 [facility] CenterCnsvmzuMMCTDEWWZEWT6436-56-02 11:32:00 Test Item Value Reference Range Interpretation Comments Calcium Lvl (test code = Calcium Lvl) 8.3 8.5-10.5 [facility] CenterZuwklxpGDFWSUVASYZS2550-60-14 11:32:00 Test Item Value Reference Range Interpretation Comments Glucose Lvl (test code = Glucose Lvl) 81 70-99 [facility] CenterSgpmlosCCWJVRISNTSA0537-62-19 11:32:00 Test Item Value Reference Range Interpretation Comments Creatinine Lvl (test code = Creatinine 1.95 0.50-1.40 Lvl) [facility] CenterYoqazrqNVUNYAJTVJQF6009-10-32 11:32:00 Test Item Value Reference Range Interpretation Comments BUN (test code = BUN) 55 7-22 [facility] CenterPrnztwpTTZYYMFREFHD1357-50-44 11:32:00 Test Item Value Reference Range Interpretation Comments CO2 (test code = CO2) 19 24-32 [facility] CenterDrwqwirWGSOERUUJIKE7356-52-13 11:32:00 Test Item Value Reference Range Interpretation Comments Chloride Lvl (test code = Chloride Lvl) 110 95-109 [facility] CenterIidncwdBZPHGWFDRYBG8252-79-11 11:32:00 Test Item Value Reference Range Interpretation Comments Sodium Lvl (test code = Sodium Lvl) 139 135-145 [facility] CenterVbocrabXEYBMJHIALTO1701-68-58 11:32:00 Test Item Value Reference Range Interpretation Comments Potassium Lvl (test code = Potassium 4.6 3.5-5.1 Lvl) [facility]anoEyslcnrFKHQRTZMFM8945-72-89 11:32:00 Test Item Value Reference Range Interpretation Comments Lymphocytes (test code = Lymphocytes) 30.4 20.0-40.0 [facility] PlanoEdsetubWMMGAGBRPA2620-39-98 11:32:00 Test Item Value Reference Range Interpretation Comments Eosinophils (test code = 4.5 See_Comment [A utomated message] The Eosinophils) system which ge nerated this result tra nsmitted reference range : <=4.0. The reference r leo was not used to int erpret this result as normal/abnormal . [facility] PlanoJvmetmeLCCQCXWFUK3609-17-38 11:32:00 Test Item Value Reference Range Interpretation Comments Monocytes (test code = Monocytes) 13.7 2.0-12.0 [facility] [place]QhqdtcrLBOQVSBERA8537-44-98 11:32:00 Test Item Value Reference Range Interpretation Comments Segs-Bands # (test code = Segs-Bands #) 2.6 1.5-8.1 [facility] [place]anoBoiwrshCQNUQIJFRC0537-15-12 11:32:00 Test Item Value Reference Range Interpretation Comments Basophils (test code = 0.7 See_Comment [Aut omated message] The Basophils) system which ge nerated this result tra nsmitted reference range : <=1.0. The reference r leo was not used to int erpret this result as normal/abnormal . [facility] [place]anoKrctndrOSZYFFHYCG7252-02-08 11:32:00 Test Item Value Reference Range Interpretation Comments Monocytes # (test code 0.7 See_Comment [Aut omated message] The = Monocytes #) system which generated this result tra nsmitted reference range : <=0.8. The reference r leo was not used to int erpret this result as normal/abnormal . [facility] [place]anoEwafaiwVHHWZDOEFF6035-12-49 11:32:00 Test Item Value Reference Range Interpretation Comments Lymphocytes # (test code = Lymphocytes 1.6 1.0-5.5 #) [facility] [place]anoZltilolWNNERNBYQX9095-97-65 11:32:00 Test Item Value Reference Range Interpretation Comments Eosinophils # (test code 0.2 See_Comment [A utomated message] The = Eosinophils #) system whic h generated this result tra nsmitted reference range : <=0.5. The reference r leo was not used to int erpret this result as normal/abnormal . [facility] [place]anoWmnxhayOIKEMVZTAS6203-15-27 11:32:00 Test Item Value Reference Range Interpretation Comments Segs (test code = Segs) 50.7 45.0-75.0 [facility] [place]anoMeeylgzSGOHWINWTR4382-37-19 11:32:00 Test Item Value Reference Range Interpretation [...] iron deficiency anemia, and renal disease. CPT: 50435 [facility] [place]anoLbiygchEUYDTOELCN8778-39-31 11:32:00 Test Item Value Reference Range Interpretation Comments Hct (test code = Hct) 28.1 36.0-48.0 [facility] [place]anoHqqlkfsEYGSOAZUTJ6235-84-56 11:32:00 Test Item Value Reference Range Interpretation Comments RBC (test code = RBC) 3.39 4.20-5.40 [facility] [place]anoKvenzdaNBHNPGWVSE7040-90-93 11:32:00 Test Item Value Reference Range Interpretation Comments Hgb (test code = Hgb) 8.9 12.0-16.0 [facility] [place]anoRtuknrbNHIBVEKFHP3462-29-94 11:32:00 Test Item Value Reference Range Interpretation Comments WBC (test code = WBC) 5.1 3.7-10.4 [facility] [place]anoRrhzfwpMRRMXHQDCF8162-95-22 11:32:00 Test Item Value Reference Range Interpretation Comments MPV (test code = MPV) 11.3 7.4-10.4 [facility] [place]anoTnpxtmkEIVXFOUHDO6029-95-34 11:32:00 Test Item Value Reference Range Interpretation Comments Platelet (test code = Platelet) 118 133-450 [facility] [place]anoTgwcxqpIPFJEPJGZV0464-63-20 11:32:00 Test Item Value Reference Range Interpretation Comments MCHC (test code = MCHC) 31.8 32.0-36.0 [facility] [place]anoYnwzimjIQYLWNVLDU2132-69-11 11:32:00 Test Item Value Reference Range Interpretation Comments RDW (test code = RDW) 18.0 11.5-14.5 [facility] [place]anoPnakxtyBJCNRDQJHI2238-43-13 11:32:00 Test Item Value Reference Range Interpretation Comments MCV (test code = MCV) 83.0 80.0-98.0 [facility] 11:32:00 Test Item Value Reference Range Interpretation Comments MCH (test code = MCH) 26.4 pg 27.0-31.0 [facility]YgnfizcZAUNBMUBEL3457-29-38 11:32:00 Test Item Value Reference Range Interpretation Comments C3 Complement (test code = C3 137 88-201 Complement) [facility] TempleMbljeteTWFQKVODTR3442-64-58 11:32:00 Test Item Value Reference Range Interpretation Comments HIV. (test code = Negative *NA*(07/30/16 HIV.) 5:32 AM) [facility]QrcnzpsLTGSDXWRDVZU6554-82-80 11:32:00 Test Item Value Reference Range Interpretation Comments AGAP (test code = AGAP) 14.6 10.0-20.0 [facility] CenterSyncmbrLDEAWMWDHXLF1366-93-23 11:32:00 Test Item Value Reference Range Interpretation Comments eGFR (test code = eGFR) 33 [facility] CenterLijxgviKSRBPIVUDVTF7741-52-98 11:32:00 Test Item Value Reference Range Interpretation Comments Calcium Lvl (test code = Calcium Lvl) 8.3 8.5-10.5 [facility] CenterFeetayjIGWFEJLBXZGY7214-22-22 11:32:00 Test Item Value Reference Range Interpretation Comments Glucose Lvl (test code = Glucose Lvl) 81 70-99 [facility] CenterLaspjceREAAAMOFCNQJ3344-43-82 11:32:00 Test Item Value Reference Range Interpretation Comments Creatinine Lvl (test code = Creatinine 1.95 0.50-1.40 Lvl) [facility] CenterWbanclcGJXJMFFQIAZR9511-91-60 11:32:00 Test Item Value Reference Range Interpretation Comments BUN (test code = BUN) 55 7-22 [facility] CenterSeemzdjJSJYIVPEHRHQ3339-09-07 11:32:00 Test Item Value Reference Range Interpretation Comments CO2 (test code = CO2) 19 24-32 [facility] CenterZezvbpvNWODIUPDHXOB7652-08-56 11:32:00 Test Item Value Reference Range Interpretation Comments Chloride Lvl (test code = Chloride Lvl) 110 95-109 [facility] CenterFzmnmrsPPNZIBEMWLBU1136-66-37 11:32:00 Test Item Value Reference Range Interpretation Comments Sodium Lvl (test code = Sodium Lvl) 139 135-145 [facility] StationAxnwsmpQSFKAKVIAJIE5424-30-80 11:32:00 Test Item Value Reference Range Interpretation Comments Potassium Lvl (test code = Potassium 4.6 3.5-5.1 Lvl) [facility] [place]anoDjklszxCNTWXYLOHE0710-62-90 11:32:00 Test Item Value Reference Range Interpretation Comments Lymphocytes (test code = Lymphocytes) 30.4 20.0-40.0 [facility] [place]anoMrnhhcnJPXJKZGNRR2805-32-83 11:32:00 Test Item Value Reference Range Interpretation Comments Eosinophils (test code = 4.5 See_Comment [A utomated message] The Eosinophils) system which ge nerated this result tra nsmitted reference range : <=4.0. The reference r leo was not used to int erpret this result as normal/abnormal . [facility] [place]anoLdgllqnRTRLXXGKOX1485-16-78 11:32:00 Test Item Value Reference Range Interpretation Comments Monocytes (test code = Monocytes) 13.7 2.0-12.0 [facility] [place]anoYthwyxaUFMAYIFBGQ6119-64-75 11:32:00 Test Item Value Reference Range Interpretation Comments Segs-Bands # (test code = Segs-Bands #) 2.6 1.5-8.1 [facility] [place]anoGyxxhcjQOMCWVKRVM3292-75-91 11:32:00 Test Item Value Reference Range Interpretation Comments Basophils (test code = 0.7 See_Comment [Aut omated message] The Basophils) system which ge nerated this result tra nsmitted reference range : <=1.0. The reference r leo was not used to int erpret this result as normal/abnormal . [facility] [place]anoPwbspqqGIZIXKHMLJ4128-12-13 11:32:00 Test Item Value Reference Range Interpretation Comments Monocytes # (test code 0.7 See_Comment [Aut omated message] The = Monocytes #) system which generated this result tra nsmitted reference range : <=0.8. The reference r leo was not used to int erpret this result as normal/abnormal . [facility] [place]anoEbimiwkIGZBXAVPIL4646-62-72 11:32:00 Test Item Value Reference Range Interpretation Comments Lymphocytes # (test code = Lymphocytes 1.6 1.0-5.5 #) [facility] [place]anoUavtzqnAWORRXGSKC1584-63-53 11:32:00 Test Item Value Reference Range Interpretation Comments Eosinophils # (test code 0.2 See_Comment [A utomated message] The = Eosinophils #) system whic h generated this result tra nsmitted reference range : <=0.5. The reference r leo was not used to int erpret this result as normal/abnormal . [facility] [place]anoRthlyvlXJAIZHRQZX1422-39-50 11:32:00 Test Item Value Reference Range Interpretation Comments Segs (test code = Segs) 50.7 45.0-75.0 [facility] [place]anoZuwmlewKTVOVGZOKI9982-46-23 11:32:00 Test Item Value Reference Range Interpretation [...] iron deficiency anemia, and renal disease. CPT: 78499 [facility] [place]anoAwcasinKYZDSRZPHN5316-72-15 11:32:00 Test Item Value Reference Range Interpretation Comments Hct (test code = Hct) 28.1 36.0-48.0 [facility] [place]anoAlfuhhfSLWBCZPLCS2353-19-91 11:32:00 Test Item Value Reference Range Interpretation Comments RBC (test code = RBC) 3.39 4.20-5.40 [facility] [place]anoOlluviuMPITIJUBPP2447-24-52 11:32:00 Test Item Value Reference Range Interpretation Comments Hgb (test code = Hgb) 8.9 12.0-16.0 [facility] [place]anoHxmpjfsLWIVDRWJYI0822-98-71 11:32:00 Test Item Value Reference Range Interpretation Comments WBC (test code = WBC) 5.1 3.7-10.4 [facility] [place]anoOomgsmfEWJGISRFJK5428-41-47 11:32:00 Test Item Value Reference Range Interpretation Comments MPV (test code = MPV) 11.3 7.4-10.4 [facility] [place]anoOnwywedUCZJKSOKEJ3055-95-69 11:32:00 Test Item Value Reference Range Interpretation Comments Platelet (test code = Platelet) 118 133-450 [facility] [place]anoKsyottnBBVRJMPCCK1218-22-38 11:32:00 Test Item Value Reference Range Interpretation Comments MCHC (test code = MCHC) 31.8 32.0-36.0 [facility] [place]anoVykqwtaUIKBEHUNMU6546-01-01 11:32:00 Test Item Value Reference Range Interpretation Comments RDW (test code = RDW) 18.0 11.5-14.5 [facility] [place]anoLvdudtbICQKXZRIVU4689-85-11 11:32:00 Test Item Value Reference Range Interpretation Comments MCV (test code = MCV) 83.0 80.0-98.0 [facility] [place]TdbkpkhXTAYGQBRSQ7550-09-48 11:32:00 Test Item Value Reference Range Interpretation Comments MCH (test code = MCH) 26.4 pg 27.0-31.0 [facility] TempleYxhayprCELSCDPUHI5563-30-33 11:32:00 Test Item Value Reference Range Interpretation Comments C3 Complement (test code = C3 137 88-201 Complement) [facility] TempleOftfhmoCQNETJVZVW1763-55-10 11:32:00 Test Item Value Reference Range Interpretation Comments HIV. (test code = Negative *NA*(07/30/16 HIV.) 5:32 AM) [facility] CenterNzhjbubUAUKAFBGFMUE2933-58-92 11:32:00 Test Item Value Reference Range Interpretation Comments AGAP (test code = AGAP) 14.6 10.0-20.0 [facility] CenterXywimaySTYBFOSVFMHN8025-90-39 11:32:00 Test Item Value Reference Range Interpretation Comments eGFR (test code = eGFR) 33 [facility] CenterDpqqkjqFNKYLQELCTUJ9432-53-67 11:32:00 Test Item Value Reference Range Interpretation Comments Calcium Lvl (test code = Calcium Lvl) 8.3 8.5-10.5 [facility] CenterTpvxfnnYVRBFZODJIEZ4629-86-36 11:32:00 Test Item Value Reference Range Interpretation Comments Glucose Lvl (test code = Glucose Lvl) 81 70-99 [facility] CenterGiqcgddOTVQKHRRSKMM4167-40-17 11:32:00 Test Item Value Reference Range Interpretation Comments Creatinine Lvl (test code = Creatinine 1.95 0.50-1.40 Lvl) [facility] CenterKxkfwjaVHMATBRYYNOQ8442-18-42 11:32:00 Test Item Value Reference Range Interpretation Comments BUN (test code = BUN) 55 7-22 [facility] CenterNjxngyvLMULDYYYWGTJ8236-44-75 11:32:00 Test Item Value Reference Range Interpretation Comments CO2 (test code = CO2) 19 24-32 [facility] CenterNlkmykoKRVDPKHSHXUM3562-70-37 11:32:00 Test Item Value Reference Range Interpretation Comments Chloride Lvl (test code = Chloride Lvl) 110 95-109 [facility] CenterXgmyygsBEMVNUDEPLMX0762-99-30 11:32:00 Test Item Value Reference Range Interpretation Comments Sodium Lvl (test code = Sodium Lvl) 139 135-145 [facility] CenterDgpqhskDCAKQIYYHCVB5810-36-85 11:32:00 Test Item Value Reference Range Interpretation Comments Potassium Lvl (test code = Potassium 4.6 3.5-5.1 Lvl) [facility] [place]anoTsuymtqIKUXVECRSN1131-99-65 11:32:00 Test Item Value Reference Range Interpretation Comments Lymphocytes (test code = Lymphocytes) 30.4 20.0-40.0 [facility] [place]anoRrznqisGJKLVYXMBN5900-31-91 11:32:00 Test Item Value Reference Range Interpretation Comments Eosinophils (test code = 4.5 See_Comment [A utomated message] The Eosinophils) system which ge nerated this result tra nsmitted reference range : <=4.0. The reference r leo was not used to int erpret this result as normal/abnormal . [facility] [place]anoJwwvnruUEPGSXXHIY0580-09-45 11:32:00 Test Item Value Reference Range Interpretation Comments Monocytes (test code = Monocytes) 13.7 2.0-12.0 [facility] [place]anoNwdodjnCGUJIEVSHY3937-85-69 11:32:00 Test Item Value Reference Range Interpretation Comments Segs-Bands # (test code = Segs-Bands #) 2.6 1.5-8.1 [facility] [place]anoHezyvapMXVOLCCBYU5521-14-30 11:32:00 Test Item Value Reference Range Interpretation Comments Basophils (test code = 0.7 See_Comment [Aut omated message] The Basophils) system which ge nerated this result tra nsmitted reference range : <=1.0. The reference r leo was not used to int erpret this result as normal/abnormal . [facility] [place]XzscaafHVAUWWWLEC2646-34-30 11:32:00 Test Item Value Reference Range Interpretation Comments Monocytes # (test code 0.7 See_Comment [Aut omated message] The = Monocytes #) system which generated this result tra nsmitted reference range : <=0.8. The reference r leo was not used to int erpret this result as normal/abnormal . [facility] [place]anoNfmitbbNIZCJQCZUN0712-04-82 11:32:00 Test Item Value Reference Range Interpretation Comments Lymphocytes # (test code = Lymphocytes 1.6 1.0-5.5 #) [facility] [place]anoOpojhxxJFSKJDXHQE4108-62-42 11:32:00 Test Item Value Reference Range Interpretation Comments Eosinophils # (test code 0.2 See_Comment [A utomated message] The = Eosinophils #) system [employer] h generated this result tra nsmitted reference range : <=0.5. The reference r leo was not used to int erpret this result as normal/abnormal . [facility] [place]anoAnypkbbCEFAUDTWXJ8123-69-45 11:32:00 Test Item Value Reference Range Interpretation Comments Segs (test code = Segs) 50.7 45.0-75.0 [facility] [place]anoUcoyxndSQEEYHLYKM8244-07-11 11:32:00 Test Item Value Reference Range Interpretation [...] iron deficiency anemia, and renal disease. CPT: 95566 [facility] [place]anoCbgwbqfGNSUYSBKBP9671-44-45 11:32:00 Test Item Value Reference Range Interpretation Comments Hct (test code = Hct) 28.1 36.0-48.0 [facility] [place]anoTvqdapoCDOAUIQCEX2345-20-04 11:32:00 Test Item Value Reference Range Interpretation Comments RBC (test code = RBC) 3.39 4.20-5.40 [facility] [place]anoYfeeapeZMXFLBZYPL8663-86-98 11:32:00 Test Item Value Reference Range Interpretation Comments Hgb (test code = Hgb) 8.9 12.0-16.0 [facility] [place]anoWzhxohsWPMPCAHIWN8113-31-67 11:32:00 Test Item Value Reference Range Interpretation Comments WBC (test code = WBC) 5.1 3.7-10.4 [facility] [place]anoIdjsfayDSHHBLVTGQ3356-22-44 11:32:00 Test Item Value Reference Range Interpretation Comments MPV (test code = MPV) 11.3 7.4-10.4 [facility] [place]anoKbminlfXTUCUBWRBH4825-78-29 11:32:00 Test Item Value Reference Range Interpretation Comments Platelet (test code = Platelet) 118 133-450 [facility] [place]anoWywbqbzQLUQIZEJDW0381-80-71 11:32:00 Test Item Value Reference Range Interpretation Comments MCHC (test code = MCHC) 31.8 32.0-36.0 [facility] [place]anoArmyulxQJEZZIWPDO6179-32-25 11:32:00 Test Item Value Reference Range Interpretation Comments RDW (test code = RDW) 18.0 11.5-14.5 [facility] [place]anoJnvzmthXOMLNOGAUM3685-51-08 11:32:00 Test Item Value Reference Range Interpretation Comments MCV (test code = MCV) 83.0 80.0-98.0 [facility] [place]anoGlhsyogCLLLGOBZUF5028-35-72 11:32:00 Test Item Value Reference Range Interpretation Comments MCH (test code = MCH) 26.4 pg 27.0-31.0 [facility] TempleZfutgfkDFNUVNDZAB8362-69-65 11:32:00 Test Item Value Reference Range Interpretation Comments C3 Complement (test code = C3 137 88-201 Complement) [facility] TempleQrivcxbIWVJYACWWF5716-34-63 11:32:00 Test Item Value Reference Range Interpretation Comments HIV. (test code = Negative *NA*(07/30/16 HIV.) 5:32 AM) [facility] CenterYojlsmhZUKOITOHTRCD0245-64-32 11:32:00 Test Item Value Reference Range Interpretation Comments AGAP (test code = AGAP) 14.6 10.0-20.0 [facility] CenterOsucxfnTOWCTCQDNVSV5053-79-43 11:32:00 Test Item Value Reference Range Interpretation Comments eGFR (test code = eGFR) 33 [facility] CenterTzcdijhDKQLKPAXIQJH0202-19-14 11:32:00 Test Item Value Reference Range Interpretation Comments Calcium Lvl (test code = Calcium Lvl) 8.3 8.5-10.5 [facility] CenterPosoedlLVLOZVUXBICS2657-77-90 11:32:00 Test Item Value Reference Range Interpretation Comments Glucose Lvl (test code = Glucose Lvl) 81 70-99 [facility] CenterErnybhvECDSRIZFGGVI3085-01-16 11:32:00 Test Item Value Reference Range Interpretation Comments Creatinine Lvl (test code = Creatinine 1.95 0.50-1.40 Lvl) [facility] CenterVirnkyyPWNNKZJQPXIT5854-44-77 11:32:00 Test Item Value Reference Range Interpretation Comments BUN (test code = BUN) 55 7-22 [facility] CenterJqtxmtdAEOWQGYJHQRS9385-73-61 11:32:00 Test Item Value Reference Range Interpretation Comments CO2 (test code = CO2) 19 24-32 [facility] CenterJnhfrbgHKWWJQXRUCND4634-29-22 11:32:00 Test Item Value Reference Range Interpretation Comments Chloride Lvl (test code = Chloride Lvl) 110 95-109 [facility] CenterKwsscuvDJXMNLODWJLC9625-16-67 11:32:00 Test Item Value Reference Range Interpretation Comments Sodium Lvl (test code = Sodium Lvl) 139 135-145 [facility] CenterMvirogqDFRNQTPDUWYF0464-93-08 11:32:00 Test Item Value Reference Range Interpretation Comments Potassium Lvl (test code = Potassium 4.6 3.5-5.1 Lvl) [facility] [place]anoGldhdbaTFCXRHALTF0303-40-80 11:32:00 Test Item Value Reference Range Interpretation Comments Lymphocytes (test code = Lymphocytes) 30.4 20.0-40.0 [facility] [place]anoMfpefqaSYRGREHGOQ0478-54-57 11:32:00 Test Item Value Reference Range Interpretation Comments Eosinophils (test code = 4.5 See_Comment [A utomated message] The Eosinophils) system which ge nerated this result tra nsmitted reference range : <=4.0. The reference r leo was not used to int erpret this result as normal/abnormal . [facility] [place]anoLpxdimsLPLTSCCQMK8145-56-01 11:32:00 Test Item Value Reference Range Interpretation Comments Monocytes (test code = Monocytes) 13.7 2.0-12.0 [facility] [place]anoEotgnhcELPLAMNLFW0702-65-61 11:32:00 Test Item Value Reference Range Interpretation Comments Segs-Bands # (test code = Segs-Bands #) 2.6 1.5-8.1 [facility] [place]anoFrdadacAWBIKERYZN0449-25-76 11:32:00 Test Item Value Reference Range Interpretation Comments Basophils (test code = 0.7 See_Comment [Aut omated message] The Basophils) system which ge nerated this result tra nsmitted reference range : <=1.0. The reference r leo was not used to int erpret this result as normal/abnormal . [facility] [place]anoHyzesyeZYBPZKNCQB2013-57-81 11:32:00 Test Item Value Reference Range Interpretation Comments Monocytes # (test code 0.7 See_Comment [Aut omated message] The = Monocytes #) system which generated this result tra nsmitted reference range : <=0.8. The reference r leo was not used to int erpret this result as normal/abnormal . [facility] [place]anoWfiwtibYSMZNMGUDA0277-54-29 11:32:00 Test Item Value Reference Range Interpretation Comments Lymphocytes # (test code = Lymphocytes 1.6 1.0-5.5 #) [facility] [place]anoLdubbsdMHEGMOLWGO9635-94-91 11:32:00 Test Item Value Reference Range Interpretation Comments Eosinophils # (test code 0.2 See_Comment [A utomated message] The = Eosinophils #) system man[employer] generated this result tra nsmitted reference range : <=0.5. The reference r leo was not used to int erpret this result as normal/abnormal . [facility] [place]anoQvvobquPNJRYQXDAP1499-93-33 11:32:00 Test Item Value Reference Range Interpretation Comments Segs (test code = Segs) 50.7 45.0-75.0 [facility] [place]anoRqtfosbHBVYBCYCFB2585-49-12 11:32:00 Test Item Value Reference Range Interpretation [...] iron deficiency anemia, and renal disease. CPT: 38651 [facility] [place]anoVbcmzkuGGSIWGQUBC1794-58-96 11:32:00 Test Item Value Reference Range Interpretation Comments Hct (test code = Hct) 28.1 36.0-48.0 [facility] [place]anoDjuuwvyEGCOVZGZLB6145-12-55 11:32:00 Test Item Value Reference Range Interpretation Comments RBC (test code = RBC) 3.39 4.20-5.40 [facility] [place]anoFqxdkhaWLAFKNSUYL3895-20-09 11:32:00 Test Item Value Reference Range Interpretation Comments Hgb (test code = Hgb) 8.9 12.0-16.0 [facility] [place]anoXwsdjocAOXHXOMILK2487-48-09 11:32:00 Test Item Value Reference Range Interpretation Comments WBC (test code = WBC) 5.1 3.7-10.4 [facility] [place]anoAxerogjAJOXDHHECQ6006-87-37 11:32:00 Test Item Value Reference Range Interpretation Comments MPV (test code = MPV) 11.3 7.4-10.4 [facility] [place]anoHopnkkmUZNDFFYPGJ8461-62-83 11:32:00 Test Item Value Reference Range Interpretation Comments Platelet (test code = Platelet) 118 133-450 [facility] [place]anoTornrelKKJJNJIIML6311-98-67 11:32:00 Test Item Value Reference Range Interpretation Comments MCHC (test code = MCHC) 31.8 32.0-36.0 [facility] [place]anoWdetoluKCFNLNDMFC3233-38-05 11:32:00 Test Item Value Reference Range Interpretation Comments RDW (test code = RDW) 18.0 11.5-14.5 [facility] [place]anoNlfrexwLPMRWFRURJ5488-29-57 11:32:00 Test Item Value Reference Range Interpretation Comments MCV (test code = MCV) 83.0 80.0-98.0 [facility] [place]anoTupwmbhKVXRLQLKWG4452-36-14 11:32:00 Test Item Value Reference Range Interpretation Comments MCH (test code = MCH) 26.4 pg 27.0-31.0 [facility] TempleZtxuumgFQCUDEGLYQ8555-29-68 11:32:00 Test Item Value Reference Range Interpretation Comments C3 Complement (test code = C3 137 41-201 Complement) [facility] TemplePxifqnlQLJUXDYAAM3121-75-55 11:32:00 Test Item Value Reference Range Interpretation Comments HIV. (test code = Negative *NA*(07/30/16 HIV.) 5:32 AM) [facility] [place]anoXusbfveERWVZNSZOS9420-36-00 11:05:00 Test Item Value Reference Range Interpretation [...] iron deficiency anemia, and renal disease. CPT: 79897 [facility] TempleUnmnudqAIJTIZMNGH5238-89-32 11:05:00 Test Item Value Reference Range Interpretation Comments HIV. (test code = Negative *NA*(07/29/16 HIV.) 5:05 AM) [facility] TempleMatuxdsJJQDJAUSIO5430-90-63 11:05:00 Test Item Value Reference Range Interpretation Comments C3 Complement (test code = C3 92 88-201 Complement) [facility] [place]anoNoswyhwKPAIIHBXPX0967-09-98 11:05:00 Test Item Value Reference Range Interpretation [...] iron deficiency anemia, and renal disease. CPT: 37168 [facility] TempleToznfbiLEJQYTPNZU7457-79-42 11:05:00 Test Item Value Reference Range Interpretation Comments HIV. (test code = Negative *NA*(07/29/16 HIV.) 5:05 AM) [facility] TempleXcfycraVLZREKLCEJ5206-82-40 11:05:00 Test Item Value Reference Range Interpretation Comments C3 Complement (test code = C3 92 88-201 Complement) [facility] [place]anoGomxpczRXHXZEZBMX7032-49-84 11:05:00 Test Item Value Reference Range Interpretation [...] iron deficiency anemia, and renal disease. CPT: 93564 [facility] TempleLrrommdGMCWABBVYQ1192-22-79 11:05:00 Test Item Value Reference Range Interpretation Comments HIV. (test code = Negative *NA*(07/29/16 HIV.) 5:05 AM) [facility] TempleKwpfrhmOJXHVFPYWR4969-03-52 11:05:00 Test Item Value Reference Range Interpretation Comments C3 Complement (test code = C3 92 88-201 Complement) [facility] [place]anoUbyilkoUSBNIKMYQA8889-68-00 11:05:00 Test Item Value Reference Range Interpretation [...] iron deficiency anemia, and renal disease. CPT: 19554 [facility] TempleRbgjrndLNAMKOAYME4652-07-75 11:05:00 Test Item Value Reference Range Interpretation Comments HIV. (test code = Negative *NA*(07/29/16 HIV.) 5:05 AM) [facility]BF[facility]DGKDDQ7423[facility] 11:05:00 Test Item Value Reference Range Interpretation Comments C3 Complement (test code = C3 92 88-201 Complement) [facility]DxpnzbqVNJTVRAWPX6699-81-86 11:05:00 Test Item Value Reference Range Interpretation [...] iron deficiency anemia, and renal disease. CPT: 15029 [facility] TempleBepyaeuWIQHMUCIOF2395-37-73 11:05:00 Test Item Value Reference Range Interpretation Comments HIV. (test code = Negative *NA*(07/29/16 HIV.) 5:05 AM) [facility] TempleFbnfmahMPPBRXXUGO0574-57-58 11:05:00 Test Item Value Reference Range Interpretation Comments C3 Complement (test code = C3 92 88-201 Complement) [facility]2017-02-07 15:50:00 Test Item Value Reference Range Interpretation Comments eGFR (test code = eGFR) 25 [facility]2017-02-07 15:50:00 Test Item Value Reference Range Interpretation Comments BUN (test code = BUN) 55 7-22 [facility]2017-02-07 15:50:00 Test Item Value Reference Range Interpretation Comments CO2 (test code = CO2) 23 24-32 [facility]2017-02-07 15:50:00 Test Item Value Reference Range Interpretation Comments Chloride Lvl (test code = Chloride Lvl) 109 95-109 [facility]2017-02-07 15:50:00 Test Item Value Reference Range Interpretation Comments Glucose Lvl (test code = Glucose Lvl) 101 70-99 [facility]2017-02-07 15:50:00 Test Item Value Reference Range Interpretation Comments Potassium Lvl (test code = Potassium 4.0 3.5-5.1 Lvl) [facility]2017-02-07 15:50:00 Test Item Value Reference Range Interpretation Comments Sodium Lvl (test code = Sodium Lvl) 141 135-145 [facility]2017-02-07 15:50:00 Test Item Value Reference Range Interpretation Comments AGAP (test code = AGAP) 13.0 10.0-20.0 [facility]2017-02-07 15:50:00 Test Item Value Reference Range Interpretation Comments Calcium Lvl (test code = Calcium Lvl) 7.7 8.5-10.5 [facility]2017-02-07 15:50:00 Test Item Value Reference Range Interpretation Comments Creatinine Lvl (test code = Creatinine 2.49 0.50-1.40 Lvl) [facility]KzmvbxvYWEZEGXWJV5778-61-95 15:50:00 Test Item Value Reference Range Interpretation Comments PT (test code = PT) 14.8 s 12.0-14.7 [facility]anoUzkxiogGWYZGAGRCN0385-77-80 15:50:00 Test Item Value Reference Range Interpretation Comments PTT (test code = PTT) 40.8 s 22.9-35.8 [facility]anoOicwiwnFLQCXSTFAU0569-92-24 15:50:00 Test Item Value Reference Range Interpretation Comments INR (test code = INR) 1.14 0.85-1.17 [facility]klWZRQOTKPZL2145-86-36 15:50:00 Test Item Value Reference Range Interpretation Comments C3 Complement (test code = C3 94 88-201 Complement) [facility]2017-02-07 15:50:00 Test Item Value Reference Range Interpretation Comments eGFR (test code = eGFR) 25 [facility]2017-02-07 15:50:00 Test Item Value Reference Range Interpretation Comments BUN (test code = BUN) 55 7-22 [facility]2017-02-07 15:50:00 Test Item Value Reference Range Interpretation Comments CO2 (test code = CO2) 23 24-32 [facility]2017-02-07 15:50:00 Test Item Value Reference Range Interpretation Comments Chloride Lvl (test code = Chloride Lvl) 109 95-109 [facility]2017-02-07 15:50:00 Test Item Value Reference Range Interpretation Comments Glucose Lvl (test code = Glucose Lvl) 101 70-99 [facility]2017-02-07 15:50:00 Test Item Value Reference Range Interpretation Comments Potassium Lvl (test code = Potassium 4.0 3.5-5.1 Lvl) [facility]2017-02-07 15:50:00 Test Item Value Reference Range Interpretation Comments Sodium Lvl (test code = Sodium Lvl) 141 135-145 [facility]2017-02-07 15:50:00 Test Item Value Reference Range Interpretation Comments AGAP (test code = AGAP) 13.0 10.0-20.0 [facility]2017-02-07 15:50:00 Test Item Value Reference Range Interpretation Comments Calcium Lvl (test code = Calcium Lvl) 7.7 8.5-10.5 [facility]2017-02-07 15:50:00 Test Item Value Reference Range Interpretation Comments Creatinine Lvl (test code = Creatinine 2.49 0.50-1.40 Lvl) [facility]anoCzxfqxbDOGRUEQEWF2376-59-75 15:50:00 Test Item Value Reference Range Interpretation Comments PT (test code = PT) 14.8 s 12.0-14.7 [facility]anoLtfgiuaRBVMFCVGBC0620-33-03 15:50:00 Test Item Value Reference Range Interpretation Comments PTT (test code = PTT) 40.8 s 22.9-35.8 [facility]anoUgdlmdvCDPYLULECI1637-52-30 15:50:00 Test Item Value Reference Range Interpretation Comments INR (test code = INR) 1.14 0.85-1.17 [facility]TdmdaiwBHSXUUQALS3210-65-21 15:50:00 Test Item Value Reference Range Interpretation Comments C3 Complement (test code = C3 94 88-201 Complement) [facility]2017-02-07 15:50:00 Test Item Value Reference Range Interpretation Comments eGFR (test code = eGFR) 25 [facility]2017-02-07 15:50:00 Test Item Value Reference Range Interpretation Comments BUN (test code = BUN) 55 7-22 [facility]2017-02-07 15:50:00 Test Item Value Reference Range Interpretation Comments CO2 (test code = CO2) 23 24-32 [facility]2017-02-07 15:50:00 Test Item Value Reference Range Interpretation Comments Chloride Lvl (test code = Chloride Lvl) 109 95-109 [facility]2017-02-07 15:50:00 Test Item Value Reference Range Interpretation Comments Glucose Lvl (test code = Glucose Lvl) 101 70-99 [facility]2017-02-07 15:50:00 Test Item Value Reference Range Interpretation Comments Potassium Lvl (test code = Potassium 4.0 3.5-5.1 Lvl) [facility]2017-02-07 15:50:00 Test Item Value Reference Range Interpretation Comments Sodium Lvl (test code = Sodium Lvl) 141 135-145 [facility]2017-02-07 15:50:00 Test Item Value Reference Range Interpretation Comments AGAP (test code = AGAP) 13.0 10.0-20.0 [facility]2017-02-07 15:50:00 Test Item Value Reference Range Interpretation Comments Calcium Lvl (test code = Calcium Lvl) 7.7 8.5-10.5 [facility]2017-02-07 15:50:00 Test Item Value Reference Range Interpretation Comments Creatinine Lvl (test code = Creatinine 2.49 0.50-1.40 Lvl) [facility]anoEzjcamaBTCNTYJCDS9438-29-83 15:50:00 Test Item Value Reference Range Interpretation Comments PT (test code = PT) 14.8 s 12.0-14.7 [facility]anoOrailnlLDIDOCFYAI2999-98-58 15:50:00 Test Item Value Reference Range Interpretation Comments PTT (test code = PTT) 40.8 s 22.9-35.8 [facility]anoIoylznkOAQVZOQFFN9889-77-74 15:50:00 Test Item Value Reference Range Interpretation Comments INR (test code = INR) 1.14 0.85-1.17 [facility]AhpvrvsUDDKAIGGVC4065-93-29 15:50:00 Test Item Value Reference Range Interpretation Comments C3 Complement (test code = C3 94 88-201 Complement) [facility]2017-02-07 15:50:00 Test Item Value Reference Range Interpretation Comments eGFR (test code = eGFR) 25 [facility]2017-02-07 15:50:00 Test Item Value Reference Range Interpretation Comments BUN (test code = BUN) 55 7-22 [facility]2017-02-07 15:50:00 Test Item Value Reference Range Interpretation Comments CO2 (test code = CO2) 23 24-32 [place] 327787-02-07 15:50:00 Test Item Value Reference Range Interpretation Comments Chloride Lvl (test code = Chloride Lvl) 109 95-109 [facility]2017-02-07 15:50:00 Test Item Value Reference Range Interpretation Comments Glucose Lvl (test code = Glucose Lvl) 101 70-99 [facility]2017-02-07 15:50:00 Test Item Value Reference Range Interpretation Comments Potassium Lvl (test code = Potassium 4.0 3.5-5.1 Lvl) [facility]2017-02-07 15:50:00 Test Item Value Reference Range Interpretation Comments Sodium Lvl (test code = Sodium Lvl) 141 135-145 [facility]2017-02-07 15:50:00 Test Item Value Reference Range Interpretation Comments AGAP (test code = AGAP) 13.0 10.0-20.0 [facility]2017-02-07 15:50:00 Test Item Value Reference Range Interpretation Comments Calcium Lvl (test code = Calcium Lvl) 7.7 8.5-10.5 [facility]2017-02-07 15:50:00 Test Item Value Reference Range Interpretation Comments Creatinine Lvl (test code = Creatinine 2.49 0.50-1.40 Lvl) [facility]anoRiwjwhbCKIGMFKCRN1535-27-99 15:50:00 Test Item Value Reference Range Interpretation Comments PT (test code = PT) 14.8 s 12.0-14.7 [facility]anoChiosjnAXNXQDXDJW8248-25-90 15:50:00 Test Item Value Reference Range Interpretation Comments PTT (test code = PTT) 40.8 s 22.9-35.8 [facility]anoSruozqoKGVERHAKHN5151-19-17 15:50:00 Test Item Value Reference Range Interpretation Comments INR (test code = INR) 1.14 0.85-1.17 [facility]ZpebnomDPMKQECCMH1444-88-08 15:50:00 Test Item Value Reference Range Interpretation Comments C3 Complement (test code = C3 94 88-201 Complement) [facility]2017-02-07 15:50:00 Test Item Value Reference Range Interpretation Comments eGFR (test code = eGFR) 25 [facility]2017-02-07 15:50:00 Test Item Value Reference Range Interpretation Comments BUN (test code = BUN) 55 7-22 [facility]2017-02-07 15:50:00 Test Item Value Reference Range Interpretation Comments CO2 (test code = CO2) 23 24-32 [facility]2017-02-07 15:50:00 Test Item Value Reference Range Interpretation Comments Chloride Lvl (test code = Chloride Lvl) 109 95-109 [facility]2017-02-07 15:50:00 Test Item Value Reference Range Interpretation Comments Glucose Lvl (test code = Glucose Lvl) 101 70-99 [facility]2017-02-07 15:50:00 Test Item Value Reference Range Interpretation Comments Potassium Lvl (test code = Potassium 4.0 3.5-5.1 Lvl) [facility]2017-02-07 15:50:00 Test Item Value Reference Range Interpretation Comments Sodium Lvl (test code = Sodium Lvl) 141 135-145 [facility]2017-02-07 15:50:00 Test Item Value Reference Range Interpretation Comments AGAP (test code = AGAP) 13.0 10.0-20.0 [facility]2017-02-07 15:50:00 Test Item Value Reference Range Interpretation Comments Calcium Lvl (test code = Calcium Lvl) 7.7 8.5-10.5 [facility]2017-02-07 15:50:00 Test Item Value Reference Range Interpretation Comments Creatinine Lvl (test code = Creatinine 2.49 0.50-1.40 Lvl) [facility]anoCekofzqRURKZOSJJU7106-55-65 15:50:00 Test Item Value Reference Range Interpretation Comments PT (test code = PT) 14.8 s 12.0-14.7 [facility]anoXuuidreMTWFOXHZGA5374-84-93 15:50:00 Test Item Value Reference Range Interpretation Comments PTT (test code = PTT) 40.8 s 22.9-35.8 [facility]anoBdkmiibJPADHQTUTY6970-55-41 15:50:00 Test Item Value Reference Range Interpretation Comments INR (test code = INR) 1.14 0.85-1.17 [facility]AfwqawvZXIPVZLXIR3667-81-05 15:50:00 Test Item Value Reference Range Interpretation Comments C3 Complement (test code = C3 94 88-201 Complement) [facility]anoOhrfnqpHCNGZOWBKY5693-67-85 10:35:00 Test Item Value Reference Range Interpretation Comments Lymphocytes # (test code = Lymphocytes 1.7 1.0-5.5 #) [facility]anoGbyakvmVNXBIBFFHT4678-38-61 10:35:00 Test Item Value Reference Range Interpretation Comments Segs-Bands # (test code = Segs-Bands #) 2.7 1.5-8.1 [facility]anoLdrivspEQQHTTSVTZ1929-20-51 10:35:00 Test Item Value Reference Range Interpretation Comments Eosinophils # (test code 0.1 See_Comment [A utomated message] The = Eosinophils #) system whic h generated this result tra nsmitted reference range : <=0.5. The reference r leo was not used to int erpret this result as normal/abnormal . [facility]anoUrpktcaOMXXXEEZJL3180-71-03 10:35:00 Test Item Value Reference Range Interpretation Comments Monocytes # (test code 0.7 See_Comment [Aut omated message] The = Monocytes #) system which generated this result tra nsmitted reference range : <=0.8. The reference r leo was not used to int erpret this result as normal/abnormal . [facility]anoKosyxblRGLCTTDBCZ7726-91-09 10:35:00 Test Item Value Reference Range Interpretation Comments Segs (test code = Segs) 51.3 45.0-75.0 [facility]anoIhjjficJZGEWDBOIO6892-57-99 10:35:00 Test Item Value Reference Range Interpretation Comments Lymphocytes (test code = Lymphocytes) 31.6 20.0-40.0 [facility]anoDovidpyMBSWWEGPLC8802-19-96 10:35:00 Test Item Value Reference Range Interpretation Comments Monocytes (test code = Monocytes) 14.1 2.0-12.0 [facility]anoXartxpoJYXFMWMKYR4313-79-08 10:35:00 Test Item Value Reference Range Interpretation Comments Eosinophils (test code = 2.6 See_Comment [A utomated message] The Eosinophils) system which ge nerated this result tra nsmitted reference range : <=4.0. The reference r leo was not used to int erpret this result as normal/abnormal . [facility]anoSmyerkkNOSSXIAKAY5918-51-71 10:35:00 Test Item Value Reference Range Interpretation Comments Basophils (test code = 0.4 See_Comment [Aut omated message] The Basophils) system which ge nerated this result tra nsmitted reference range : <=1.0. The reference r leo was not used to int erpret this result as normal/abnormal . [facility]anoNdrnuumVOOVDPCWXR4924-74-23 10:35:00 Test Item Value Reference Range Interpretation Comments PB Smear Path Peripheral blood smear shows (test code = PB hypochromic normocytic Smear Path) anemia with anisopoikilocytsosis, no increase in schistocytes, slight polychromasia, a few estella cells, moderate thrombocytopenia. Impression: (1) no evidence of microangiopathic hemolysis, (2) RBC morphology is suggestive of anemia of chronic disease or iron deficiency anemia, and renal disease. CPT: 70307 [facility]anoWxadcbiBIFHINKPXE4106-98-00 10:35:00 Test Item Value Reference Range Interpretation Comments Hct (test code = Hct) 29.3 36.0-48.0 [facility]anoTlmmpwdILNFSULFTT7086-11-66 10:35:00 Test Item Value Reference Range Interpretation Comments Hgb (test code = Hgb) 9.2 12.0-16.0 [facility]anoGhksphfNOTFZELWHA6083-37-57 10:35:00 Test Item Value Reference Range Interpretation Comments RBC (test code = RBC) 3.54 4.20-5.40 [facility]anoRdswbbcLMDIHILNST7099-46-22 10:35:00 Test Item Value Reference Range Interpretation Comments WBC (test code = WBC) 5.3 3.7-10.4 [facility]anoEnrgjgiIXLPTQJNNZ2304-43-82 10:35:00 Test Item Value Reference Range Interpretation Comments Platelet (test code = Platelet) 87 133-450 [facility]anoCcaoiiuJFHNBELGCP7532-05-83 10:35:00 Test Item Value Reference Range Interpretation Comments MCHC (test code = MCHC) 31.4 32.0-36.0 [facility]anoRkggtyfBYRCQOSYNP7061-04-84 10:35:00 Test Item Value Reference Range Interpretation Comments RDW (test code = RDW) 17.9 11.5-14.5 [facility]anoUwpvvizSGAWXHURTN0857-07-32 10:35:00 Test Item Value Reference Range Interpretation Comments MPV (test code = MPV) 10.9 7.4-10.4 [facility]anoBpxoetoVIDFMVPMRD7214-73-79 10:35:00 Test Item Value Reference Range Interpretation Comments MCH (test code = MCH) 26.0 pg 27.0-31.0 [facility]anoCndgnyiRKHSDJZOOM1829-96-98 10:35:00 Test Item Value Reference Range Interpretation Comments MCV (test code = MCV) 82.8 80.0-98.0 [facility]FhlznakNHBKOJSQWK6726-43-08 10:35:00 Test Item Value Reference Range Interpretation Comments HIV. (test code = Negative *NA*(07/28/16 HIV.) 4:35 AM) [facility]anoSvdzxjuMAVSGWDGEJ6951-99-24 10:35:00 Test Item Value Reference Range Interpretation Comments Lymphocytes # (test code = Lymphocytes 1.7 1.0-5.5 #) [facility]anoQuizfqpALUJOOBVLD8514-92-44 10:35:00 Test Item Value Reference Range Interpretation Comments Segs-Bands # (test code = Segs-Bands #) 2.7 1.5-8.1 [facility]anoJlgvsinNZHHQZUOYP0514-65-10 10:35:00 Test Item Value Reference Range Interpretation Comments Eosinophils # (test code 0.1 See_Comment [A utomated message] The = Eosinophils #) system whic h generated this result tra nsmitted reference range : <=0.5. The reference r leo was not used to int erpret this result as normal/abnormal . [facility]anoNranvqhQAXBIDWFLH6967-92-46 10:35:00 Test Item Value Reference Range Interpretation Comments Monocytes # (test code 0.7 See_Comment [Aut omated message] The = Monocytes #) system which generated this result tra nsmitted reference range : <=0.8. The reference r leo was not used to int erpret this result as normal/abnormal . [facility]anoWdvwgfzVNVRCWIPWV5573-30-61 10:35:00 Test Item Value Reference Range Interpretation Comments Segs (test code = Segs) 51.3 45.0-75.0 [facility]anoKypxebvIZUQFCEZUA4007-86-93 10:35:00 Test Item Value Reference Range Interpretation Comments Lymphocytes (test code = Lymphocytes) 31.6 20.0-40.0 [facility]anoTzbuxrvGQOIRVKPWH3373-60-20 10:35:00 Test Item Value Reference Range Interpretation Comments Monocytes (test code = Monocytes) 14.1 2.0-12.0 [facility]anoWnzlvfqPEOBVPTPGG8562-93-05 10:35:00 Test Item Value Reference Range Interpretation Comments Eosinophils (test code = 2.6 See_Comment [A utomated message] The Eosinophils) system which ge nerated this result tra nsmitted reference range : <=4.0. The reference r leo was not used to int erpret this result as normal/abnormal . [facility]anoPpvzyvcNJRVKPUCSH8319-62-49 10:35:00 Test Item Value Reference Range Interpretation Comments Basophils (test code = 0.4 See_Comment [Aut omated message] The Basophils) system which ge nerated this result tra nsmitted reference range : <=1.0. The reference r leo was not used to int erpret this result as normal/abnormal . [facility]anoGinsshwHYCYKNDBMN0824-23-88 10:35:00 Test Item Value Reference Range Interpretation Comments PB Smear Path Peripheral blood smear shows (test code = PB hypochromic normocytic Smear Path) anemia with anisopoikilocytsosis, no increase in schistocytes, slight polychromasia, a few estella cells, moderate thrombocytopenia. Impression: (1) no evidence of microangiopathic hemolysis, (2) RBC morphology is suggestive of anemia of chronic disease or iron deficiency anemia, and renal disease. CPT: 48493 [facility]anoFjnoaokKHPMVSVCRB2083-60-96 10:35:00 Test Item Value Reference Range Interpretation Comments Hct (test code = Hct) 29.3 36.0-48.0 [facility]anoWumqfumZQIHRTLLGY6605-47-93 10:35:00 Test Item Value Reference Range Interpretation Comments Hgb (test code = Hgb) 9.2 12.0-16.0 [facility]anoZnslvrrDSITLYBIRH0652-76-10 10:35:00 Test Item Value Reference Range Interpretation Comments RBC (test code = RBC) 3.54 4.20-5.40 [facility]anoWpnwsmqOMCKDONLHG6731-31-82 10:35:00 Test Item Value Reference Range Interpretation Comments WBC (test code = WBC) 5.3 3.7-10.4 [facility]anoPoglbneKGIZKWGBOH0764-04-91 10:35:00 Test Item Value Reference Range Interpretation Comments Platelet (test code = Platelet) 87 133-450 [facility] PlanoZacbaubJOSEDLKOSV7598-35-91 10:35:00 Test Item Value Reference Range Interpretation Comments MCHC (test code = MCHC) 31.4 32.0-36.0 [facility]anoTvkekjiXVCLFTQMPL7882-35-88 10:35:00 Test Item Value Reference Range Interpretation Comments RDW (test code = RDW) 17.9 11.5-14.5 [facility]anoMieuoikDTXWKUSZZV0897-57-48 10:35:00 Test Item Value Reference Range Interpretation Comments MPV (test code = MPV) 10.9 7.4-10.4 [facility]anoQqrnrbhABDGOYBQWD9318-07-57 10:35:00 Test Item Value Reference Range Interpretation Comments MCH (test code = MCH) 26.0 pg 27.0-31.0 [facility]anoLljrfuaKLGIWCFPCW9540-68-78 10:35:00 Test Item Value Reference Range Interpretation Comments MCV (test code = MCV) 82.8 80.0-98.0 [facility]CkpozlnFLSBUCBCQH1475-91-22 10:35:00 Test Item Value Reference Range Interpretation Comments HIV. (test code = Negative *NA*(07/28/16 HIV.) 4:35 AM) [facility]anoPreyxbxZJLXNVJIFT1675-35-34 10:35:00 Test Item Value Reference Range Interpretation Comments Lymphocytes # (test code = Lymphocytes 1.7 1.0-5.5 #) [facility]anoGgcbgbxUJGLHBFSGA5575-43-55 10:35:00 Test Item Value Reference Range Interpretation Comments Segs-Bands # (test code = Segs-Bands #) 2.7 1.5-8.1 [facility]anoDzmmzsrEYLZMVKBTQ5084-25-53 10:35:00 Test Item Value Reference Range Interpretation Comments Eosinophils # (test code 0.1 See_Comment [A utomated message] The = Eosinophils #) system whic h generated this result tra nsmitted reference range : <=0.5. The reference r leo was not used to int erpret this result as normal/abnormal . [facility]anoCdlxyrtZVUFGSPYXW4388-82-94 10:35:00 Test Item Value Reference Range Interpretation Comments Monocytes # (test code 0.7 See_Comment [Aut omated message] The = Monocytes #) system which generated this result tra nsmitted reference range : <=0.8. The reference r leo was not used to int erpret this result as normal/abnormal . [facility]anoSeujuyyDKLWACHWTZ9626-79-72 10:35:00 Test Item Value Reference Range Interpretation Comments Segs (test code = Segs) 51.3 45.0-75.0 [facility]anoWmerfzzUAITJFEABG6506-63-53 10:35:00 Test Item Value Reference Range Interpretation Comments Lymphocytes (test code = Lymphocytes) 31.6 20.0-40.0 [facility]anoMbwnejjXAUSWRWDIO0552-18-54 10:35:00 Test Item Value Reference Range Interpretation Comments Monocytes (test code = Monocytes) 14.1 2.0-12.0 [facility]anoKszpjgxQUDRTXQLEP4486-61-69 10:35:00 Test Item Value Reference Range Interpretation Comments Eosinophils (test code = 2.6 See_Comment [A utomated message] The Eosinophils) system which ge nerated this result tra nsmitted reference range : <=4.0. The reference r leo was not used to int erpret this result as normal/abnormal . [facility]anoThsvjhjBXFMUSLAZC2349-23-33 10:35:00 Test Item Value Reference Range Interpretation Comments Basophils (test code = 0.4 See_Comment [Aut omated message] The Basophils) system which ge nerated this result tra nsmitted reference range : <=1.0. The reference r leo was not used to int erpret this result as normal/abnormal . [facility]anoDihhiymSUVQEAQDEF4435-12-78 10:35:00 Test Item Value Reference Range Interpretation Comments PB Smear Path Peripheral blood smear shows (test code = PB hypochromic normocytic Smear Path) anemia with anisopoikilocytsosis, no increase in schistocytes, slight polychromasia, a few estella cells, moderate thrombocytopenia. Impression: (1) no evidence of microangiopathic hemolysis, (2) RBC morphology is suggestive of anemia of chronic disease or iron deficiency anemia, and renal disease. CPT: 50149 [facility]anoWyiahixLNOKVTWPRO4180-63-00 10:35:00 Test Item Value Reference Range Interpretation Comments Hct (test code = Hct) 29.3 36.0-48.0 [facility]anoFsggrskBRAFBSCBHZ3581-95-26 10:35:00 Test Item Value Reference Range Interpretation Comments Hgb (test code = Hgb) 9.2 12.0-16.0 [facility]anoXobipnuIIHZSPFNVC5430-57-41 10:35:00 Test Item Value Reference Range Interpretation Comments RBC (test code = RBC) 3.54 4.20-5.40 [facility]anoGqagaywUCIJMVSWNH5479-42-72 10:35:00 Test Item Value Reference Range Interpretation Comments WBC (test code = WBC) 5.3 3.7-10.4 [facility] PlanoZjqubqfHVJFDOOSER0397-94-45 10:35:00 Test Item Value Reference Range Interpretation Comments Platelet (test code = Platelet) 87 133-450 [facility]anoZvteimaNYFUBOKLMF1195-26-30 10:35:00 Test Item Value Reference Range Interpretation Comments MCHC (test code = MCHC) 31.4 32.0-36.0 [facility]anoLgcmbbtFGRCAWVJRB9657-34-70 10:35:00 Test Item Value Reference Range Interpretation Comments RDW (test code = RDW) 17.9 11.5-14.5 [facility]anoIsljfmrBGJRXCSODT9217-83-61 10:35:00 Test Item Value Reference Range Interpretation Comments MPV (test code = MPV) 10.9 7.4-10.4 [facility]anoWniyudsQVZDNXYSYH7039-41-90 10:35:00 Test Item Value Reference Range Interpretation Comments MCH (test code = MCH) 26.0 pg 27.0-31.0 [facility]anoXevzeazIFZEVJQHQL0394-89-13 10:35:00 Test Item Value Reference Range Interpretation Comments MCV (test code = MCV) 82.8 80.0-98.0 [facility]ENWARAKXPX3574-[facility]-92 10:35:00 Test Item Value Reference Range Interpretation Comments HIV. (test code = Negative *NA*(07/28/16 HIV.) 4:35 AM) [facility]anoFxkbuzdOWDJSNLGQF4951-11-87 10:35:00 Test Item Value Reference Range Interpretation Comments Lymphocytes # (test code = Lymphocytes 1.7 1.0-5.5 #) [facility]anoGaewmikMRBCGOXAUP0386-32-43 10:35:00 Test Item Value Reference Range Interpretation Comments Segs-Bands # (test code = Segs-Bands #) 2.7 1.5-8.1 [facility]anoUuekkicDKVRQXQVDU4031-42-56 10:35:00 Test Item Value Reference Range Interpretation Comments Eosinophils # (test code 0.1 See_Comment [A utomated message] The = Eosinophils #) system whic h generated this result tra nsmitted reference range : <=0.5. The reference r leo was not used to int erpret this result as normal/abnormal . [facility]anoJlufwcuFXQDITCAQC3119-92-93 10:35:00 Test Item Value Reference Range Interpretation Comments Monocytes # (test code 0.7 See_Comment [Aut omated message] The = Monocytes #) system which generated this result tra nsmitted reference range : <=0.8. The reference r leo was not used to int erpret this result as normal/abnormal . [facility]anoSjfqdtpNDGBEXXBLN6440-24-74 10:35:00 Test Item Value Reference Range Interpretation Comments Segs (test code = Segs) 51.3 45.0-75.0 [facility]anoQcgelcbIBXTRLUIOX5093-04-28 10:35:00 Test Item Value Reference Range Interpretation Comments Lymphocytes (test code = Lymphocytes) 31.6 20.0-40.0 [facility]anoHdrdweqUZKTJQIPFU4039-76-70 10:35:00 Test Item Value Reference Range Interpretation Comments Monocytes (test code = Monocytes) 14.1 2.0-12.0 [facility]anoYjwzktgHMTQZKUCFV6430-10-29 10:35:00 Test Item Value Reference Range Interpretation Comments Eosinophils (test code = 2.6 See_Comment [A utomated message] The Eosinophils) system which ge nerated this result tra nsmitted reference range : <=4.0. The reference r leo was not used to int erpret this result as normal/abnormal . [facility]anoYmxppyiBUKNYEFPSY2884-67-68 10:35:00 Test Item Value Reference Range Interpretation Comments Basophils (test code = 0.4 See_Comment [Aut omated message] The Basophils) system which ge nerated this result tra nsmitted reference range : <=1.0. The reference r leo was not used to int erpret this result as normal/abnormal . [facility]anoQwouxrfRSNCNCBYWT7823-57-83 10:35:00 Test Item Value Reference Range Interpretation Comments PB Smear Path Peripheral blood smear shows (test code = PB hypochromic normocytic Smear Path) anemia with anisopoikilocytsosis, no increase in schistocytes, slight polychromasia, a few estella cells, moderate thrombocytopenia. Impression: (1) no evidence of microangiopathic hemolysis, (2) RBC morphology is suggestive of anemia of chronic disease or iron deficiency anemia, and renal disease. CPT: 18550 [facility]anoGopmzamOTZEEMYJHW9169-09-00 10:35:00 Test Item Value Reference Range Interpretation Comments Hct (test code = Hct) 29.3 36.0-48.0 [facility]anoLgqhqurLWNLMHMQMZ0767-90-25 10:35:00 Test Item Value Reference Range Interpretation Comments Hgb (test code = Hgb) 9.2 12.0-16.0 [facility]anoTpyoycnIIGQRWCPQV2386-64-29 10:35:00 Test Item Value Reference Range Interpretation Comments RBC (test code = RBC) 3.54 4.20-5.40 [facility]anoPvmitmyHECXNTFXSP0916-86-97 10:35:00 Test Item Value Reference Range Interpretation Comments WBC (test code = WBC) 5.3 3.7-10.4 [facility]anoLsrfkurIAJBUPNZYD0946-67-39 10:35:00 Test Item Value Reference Range Interpretation Comments Platelet (test code = Platelet) 87 133-450 [facility]anoFdyfweiFTVWWBDKTB9719-76-73 10:35:00 Test Item Value Reference Range Interpretation Comments MCHC (test code = MCHC) 31.4 32.0-36.0 [facility]anoRsscyoxNHANSLVYRM0682-69-66 10:35:00 Test Item Value Reference Range Interpretation Comments RDW (test code = RDW) 17.9 11.5-14.5 [facility]anoVtpuxokQLODVHERXT3805-96-19 10:35:00 Test Item Value Reference Range Interpretation Comments MPV (test code = MPV) 10.9 7.4-10.4 [facility]anoEqxhieuFOWIXPGGQV8239-78-25 10:35:00 Test Item Value Reference Range Interpretation Comments MCH (test code = MCH) 26.0 pg 27.0-31.0 [facility]anoGdyqffzKLHNWCXIFV3132-23-47 10:35:00 Test Item Value Reference Range Interpretation Comments MCV (test code = MCV) 82.8 80.0-98.0 [facility]DbhwhkoAPDJXWFHPU8636-54-59 10:35:00 Test Item Value Reference Range Interpretation Comments HIV. (test code = Negative *NA*(07/28/16 HIV.) 4:35 AM) [facility]anoJzveijoCELAZWEIOJ1028-76-36 10:35:00 Test Item Value Reference Range Interpretation Comments Lymphocytes # (test code = Lymphocytes 1.7 1.0-5.5 #) [facility]anoHxxrpizNAKVSOTDNN3804-12-80 10:35:00 Test Item Value Reference Range Interpretation Comments Segs-Bands # (test code = Segs-Bands #) 2.7 1.5-8.1 [facility]anoZzyjqqqKYRGIQIQRM8501-74-93 10:35:00 Test Item Value Reference Range Interpretation Comments Eosinophils # (test code 0.1 See_Comment [A utomated message] The = Eosinophils #) system whic h generated this result tra nsmitted reference range : <=0.5. The reference r leo was not used to int erpret this result as normal/abnormal . [facility]anoJmaxqzxRAIOMGJSPW1202-42-30 10:35:00 Test Item Value Reference Range Interpretation Comments Monocytes # (test code 0.7 See_Comment [Aut omated message] The = Monocytes #) system which generated this result tra nsmitted reference range : <=0.8. The reference r leo was not used to int erpret this result as normal/abnormal . [facility]anoWxdwiazGZAJDBUHHO5412-90-53 10:35:00 Test Item Value Reference Range Interpretation Comments Segs (test code = Segs) 51.3 45.0-75.0 [facility]anoOdjieleBPFJHZCJUW6545-47-44 10:35:00 Test Item Value Reference Range Interpretation Comments Lymphocytes (test code = Lymphocytes) 31.6 20.0-40.0 [facility]anoIrwncxfYQWKRPZVGT4523-76-40 10:35:00 Test Item Value Reference Range Interpretation Comments Monocytes (test code = Monocytes) 14.1 2.0-12.0 [facility]anoEsmjtwhFWPXZCQNJS2340-21-74 10:35:00 Test Item Value Reference Range Interpretation Comments Eosinophils (test code = 2.6 See_Comment [A utomated message] The Eosinophils) system which ge nerated this result tra nsmitted reference range : <=4.0. The reference r leo was not used to int erpret this result as normal/abnormal . [facility]anoJijcdtuBRABSNACTS8219-21-21 10:35:00 Test Item Value Reference Range Interpretation Comments Basophils (test code = 0.4 See_Comment [Aut omated message] The Basophils) system which ge nerated this result tra nsmitted reference range : <=1.0. The reference r leo was not used to int erpret this result as normal/abnormal . [facility]anoDgzyvhdSYDODQUTGU9495-80-34 10:35:00 Test Item Value Reference Range Interpretation Comments PB Smear Path Peripheral blood smear shows (test code = PB hypochromic normocytic Smear Path) anemia with anisopoikilocytsosis, no increase in schistocytes, slight polychromasia, a few estella cells, moderate thrombocytopenia. Impression: (1) no evidence of microangiopathic hemolysis, (2) RBC morphology is suggestive of anemia of chronic disease or iron deficiency anemia, and renal disease. CPT: 86881 [facility]anoSrmrjxyHNLIKRGTXQ0680-69-80 10:35:00 Test Item Value Reference Range Interpretation Comments Hct (test code = Hct) 29.3 36.0-48.0 [facility]anoYnrjdbpZTKHHNJEKS3730-42-35 10:35:00 Test Item Value Reference Range Interpretation Comments Hgb (test code = Hgb) 9.2 12.0-16.0 [facility]anoRwwjfozPBFUOVSUDL3363-30-85 10:35:00 Test Item Value Reference Range Interpretation Comments RBC (test code = RBC) 3.54 4.20-5.40 [facility]anoVbgevafIGJPYXQGSS3181-44-76 10:35:00 Test Item Value Reference Range Interpretation Comments WBC (test code = WBC) 5.3 3.7-10.4 [facility]anoVvtowppLFCLUTNDRF6576-57-29 10:35:00 Test Item Value Reference Range Interpretation Comments Platelet (test code = Platelet) 87 133-450 [facility]anoTduxkydIRMODXUMZA0630-61-56 10:35:00 Test Item Value Reference Range Interpretation Comments MCHC (test code = MCHC) 31.4 32.0-36.0 [facility]anoNxcprqgRSUXAEBZAN9140-78-18 10:35:00 Test Item Value Reference Range Interpretation Comments RDW (test code = RDW) 17.9 11.5-14.5 [facility]anoHcsmbneMGNEXEPOSZ1160-03-94 10:35:00 Test Item Value Reference Range Interpretation Comments MPV (test code = MPV) 10.9 7.4-10.4 [facility]anoLdofazgCPNEOXOIPE0853-47-69 10:35:00 Test Item Value Reference Range Interpretation Comments MCH (test code = MCH) 26.0 pg 27.0-31.0 [facility]anoVbuhthjAAEEBXYGHK0334-30-35 10:35:00 Test Item Value Reference Range Interpretation Comments MCV (test code = MCV) 82.8 80.0-98.0 [facility] TempleDtkyomzKHAIBQMLIA8755-34-78 10:35:00 Test Item Value Reference Range Interpretation Comments HIV. (test code = Negative *NA*(07/28/16 HIV.) 4:35 AM) [facility]2017-02-06 10:22:00 Test Item Value Reference Range Interpretation Comments Total CK (test code = Total CK) 190 12-191 [facility] StationMailPix MDMAP3269-82-94 10:22:00 Test Item Value Reference Range Interpretation Comments Calcium Lvl (test code = Calcium Lvl) 7.8 8.5-10.5 [facility] StationB[facility] IonicsMISSION FAMILY HEALTH CENTERWVMMF7631-18-92 10:22:00 Test Item Value Reference Range Interpretation Comments CO2 (test code = CO2) 21 24-32 [facility] StationMail[facility] [id number] 10:22:00 Test Item Value Reference Range Interpretation Comments Sodium Lvl (test code = Sodium Lvl) 140 135-145 [facility] StationMail[facility] NUUSW7552-79-57 10:22:00 Test Item Value Reference Range Interpretation Comments Potassium Lvl (test code = Potassium 3.8 3.5-5.1 Lvl) [facility] StationB[place] IonicsMISSION FAMILY HEALTH CENTERGZKFP3440-75-49 10:22:00 Test Item Value Reference Range Interpretation Comments Chloride Lvl (test code = Chloride Lvl) 106 95-109 [facility] StationMail[facility] [id number] 10:22:00 Test Item Value Reference Range Interpretation Comments Bili Total (test code = Bili Total) 0.4 0.2-1.3 [facility] StationMail[facility] [id number] 10:22:00 Test Item Value Reference Range Interpretation Comments Alk Phos (test code = Alk Phos) 74 39-136 [facility]2017-02-06 10:22:00 Test Item Value Reference Range Interpretation Comments eGFR (test code = eGFR) 19 [facility]2017-02-06 10:22:00 Test Item Value Reference Range Interpretation Comments Total Protein (test code = Total 5.2 6.4-8.4 Protein) [facility]2017-02-06 10:22:00 Test Item Value Reference Range Interpretation Comments ALT (test code = ALT) 822 See_Comment [Auto mated message] The system which ge nerated this result transmit rohit reference range : <=65. The reference range was not used to interpr et this result as reji l/abnormal. [facility] StationMail[facility] [id number] 10:22:00 Test Item Value Reference Range Interpretation Comments AST (test code = AST) 205 See_Comment [Auto mated message] The system which ge nerated this result transmit rohit reference range : <=37. The reference range was not used to interpr et this result as reji l/abnormal. [facility]2017-02-06 10:22:00 Test Item Value Reference Range Interpretation Comments Albumin Lvl (test code = Albumin Lvl) 1.8 3.5-5.0 [facility]2017-02-06 10:22:00 Test Item Value Reference Range Interpretation Comments BUN (test code = BUN) 54 7-22 [facility]2017-02-06 10:22:00 Test Item Value Reference Range Interpretation Comments Glucose Lvl (test code = Glucose Lvl) 143 70-99 [facility]2017-02-06 10:22:00 Test Item Value Reference Range Interpretation Comments Creatinine Lvl (test code = Creatinine 3.11 0.50-1.40 Lvl) [facility]2017-02-06 10:22:00 Test Item Value Reference Range Interpretation Comments B/C Ratio (test code = B/C Ratio) 17 6-25 [facility]2017-02-06 10:22:00 Test Item Value Reference Range Interpretation Comments AGAP (test code = AGAP) 16.8 10.0-20.0 [facility]2017-02-06 10:22:00 Test Item Value Reference Range Interpretation Comments Globulin (test code = Globulin) 3.4 2.7-4.2 [facility]2017-02-06 10:22:00 Test Item Value Reference Range Interpretation Comments A/G Ratio (test code = A/G Ratio) 0.5 0.7-1.6 [facility]2017-02-06 10:22:00 Test Item Value Reference Range Interpretation Comments Magnesium Lvl (test code = Magnesium 2.0 1.8-2.4 Lvl) [facility]2017-02-06 10:22:00 Test Item Value Reference Range Interpretation Comments Phosphorus (test code = Phosphorus) 3.7 2.5-4.5 [facility]anoEmsipquLLKRYFLDIJ6758-64-18 10:22:00 Test Item Value Reference Range Interpretation Comments RDW (test code = RDW) 17.7 11.5-14.5 [facility]anoHahbuvuQBPESDGYUV5047-23-93 10:22:00 Test Item Value Reference Range Interpretation Comments MCHC (test code = MCHC) 32.9 32.0-36.0 [facility]anoJfsddmwRNKXKXIFFP2929-57-01 10:22:00 Test Item Value Reference Range Interpretation Comments Hct (test code = Hct) 25.4 36.0-48.0 [facility]anoVepbtabRHILXAFHVQ0851-84-91 10:22:00 Test Item Value Reference Range Interpretation Comments MCH (test code = MCH) 26.4 pg 27.0-31.0 [facility]anoMuguddsJJMGCAZKCQ3790-06-95 10:22:00 Test Item Value Reference Range Interpretation Comments MCV (test code = MCV) 80.3 80.0-98.0 [facility]anoAenbnuaDRCYTYMBIT0724-36-98 10:22:00 Test Item Value Reference Range Interpretation Comments MPV (test code = MPV) 11.4 7.4-10.4 [facility]anoSatkzbsPWZSPSLGLR2709-59-66 10:22:00 Test Item Value Reference Range Interpretation Comments Platelet (test code = Platelet) 74 133-450 [facility]anoJpcfuxdFOIMFINLRY6902-20-38 10:22:00 Test Item Value Reference Range Interpretation Comments RBC (test code = RBC) 3.16 4.20-5.40 [facility]anoEwcovjdLTXJIWMEJG9000-36-71 10:22:00 Test Item Value Reference Range Interpretation Comments WBC (test code = WBC) 5.3 3.7-10.4 [facility]anoSvrnehqXDWHWTYIUN7815-51-64 10:22:00 Test Item Value Reference Range Interpretation Comments Hgb (test code = Hgb) 8.4 12.0-16.0 [facility]anoMwmradjWCIUHLBYDI6862-85-50 10:22:00 Test Item Value Reference Range Interpretation Comments Monocytes (test code = Monocytes) 14.5 2.0-12.0 [facility]anoUmbsmarYZZOSEBSAK2514-26-97 10:22:00 Test Item Value Reference Range Interpretation Comments Lymphocytes (test code = Lymphocytes) 29.8 20.0-40.0 [facility]anoOfbszojHIHGHYBKBA8591-85-80 10:22:00 Test Item Value Reference Range Interpretation Comments Eosinophils # (test code 0.1 See_Comment [A utomated message] The = Eosinophils #) system [facility] h generated this result tra nsmitted reference range : <=0.5. The reference r leo was not used to int erpret this result as normal/abnormal . [facility]jmhpmwVPHTZSZZOV7650-03-30 10:22:00 Test Item Value Reference Range Interpretation Comments Monocytes # (test code 0.8 See_Comment [Aut omated message] The = Monocytes #) system which generated this result tra nsmitted reference range : <=0.8. The reference r leo was not used to int erpret this result as normal/abnormal . [facility] HospitalDznssytYMCUJTKZSN0294-25-47 10:22:00 Test Item Value Reference Range Interpretation Comments Segs-Bands # (test code = Segs-Bands #) 2.9 1.5-8.1 [facility] HospitalOeiqgrgOQUQFKWTRF1568-29-22 10:22:00 Test Item Value Reference Range Interpretation Comments Lymphocytes # (test code = Lymphocytes 1.6 1.0-5.5 #) [facility]anoDxltjufJBWHUPUYVE5768-73-33 10:22:00 Test Item Value Reference Range Interpretation Comments Basophils (test code = 0.4 See_Comment [Aut omated message] The Basophils) system which ge nerated this result tra nsmitted reference range : <=1.0. The reference r leo was not used to int erpret this result as normal/abnormal . [facility]anoWshncnnAMLBAIGSNL4742-00-89 10:22:00 Test Item Value Reference Range Interpretation Comments Eosinophils (test code = 1.2 See_Comment [A utomated message] The Eosinophils) system which ge nerated this result tra nsmitted reference range : <=4.0. The reference r leo was not used to int erpret this result as normal/abnormal . [facility]MpgyyjfLVBBGHHZBT0037-26-98 10:22:00 Test Item Value Reference Range Interpretation Comments Segs (test code = Segs) 54.1 45.0-75.0 [facility]SPE[facility] GHVBWNQRB1333-01-40 10:22:00 Test Item Value Reference Range Interpretation Comments Hgb A1C (test code = Hgb A1C) 8.9 [facility] RFHLAOV2549-88-51 10:22:00 Test Item Value Reference Range Interpretation Comments Total CK (test code = Total CK) 190 12-191 [facility]CHE[facility] FRHHV5182-67-79 10:22:00 Test Item Value Reference Range Interpretation Comments Calcium Lvl (test code = Calcium Lvl) 7.8 8.5-10.5 [facility]2017-02-06 10:22:00 Test Item Value Reference Range Interpretation Comments CO2 (test code = CO2) 21 24-32 [facility]2017-02-06 10:22:00 Test Item Value Reference Range Interpretation Comments Sodium Lvl (test code = Sodium Lvl) 140 135-145 [facility]2017-02-06 10:22:00 Test Item Value Reference Range Interpretation Comments Potassium Lvl (test code = Potassium 3.8 3.5-5.1 Lvl) [facility]2017-02-06 10:22:00 Test Item Value Reference Range Interpretation Comments Chloride Lvl (test code = Chloride Lvl) 106 95-109 [facility]2017-02-06 10:22:00 Test Item Value Reference Range Interpretation Comments Bili Total (test code = Bili Total) 0.4 0.2-1.3 [facility]2017-02-06 10:22:00 Test Item Value Reference Range Interpretation Comments Alk Phos (test code = Alk Phos) 74 39-136 [facility]2017-02-06 10:22:00 Test Item Value Reference Range Interpretation Comments eGFR (test code = eGFR) 19 [facility]2017-02-06 10:22:00 Test Item Value Reference Range Interpretation Comments Total Protein (test code = Total 5.2 6.4-8.4 Protein) [facility]2017-02-06 10:22:00 Test Item Value Reference Range Interpretation Comments ALT (test code = ALT) 822 See_Comment [Auto mated message] The system which ge nerated this result transmit rohit reference range : <=65. The reference range was not used to interpr et this result as reji l/abnormal. [facility]2017-02-06 10:22:00 Test Item Value Reference Range Interpretation Comments AST (test code = AST) 205 See_Comment [Auto mated message] The system which ge nerated this result transmit rohit reference range : <=37. The reference range was not used to interpr et this result as reji l/abnormal. [facility]2017-02-06 10:22:00 Test Item Value Reference Range Interpretation Comments Albumin Lvl (test code = Albumin Lvl) 1.8 3.5-5.0 [facility]2017-02-06 10:22:00 Test Item Value Reference Range Interpretation Comments BUN (test code = BUN) 54 7-22 [facility]2017-02-06 10:22:00 Test Item Value Reference Range Interpretation Comments Glucose Lvl (test code = Glucose Lvl) 143 70-99 [facility]2017-02-06 10:22:00 Test Item Value Reference Range Interpretation Comments Creatinine Lvl (test code = Creatinine 3.11 0.50-1.40 Lvl) [facility]2017-02-06 10:22:00 Test Item Value Reference Range Interpretation Comments B/C Ratio (test code = B/C Ratio) 17 6-25 [facility]2017-02-06 10:22:00 Test Item Value Reference Range Interpretation Comments AGAP (test code = AGAP) 16.8 10.0-20.0 [facility]2017-02-06 10:22:00 Test Item Value Reference Range Interpretation Comments Globulin (test code = Globulin) 3.4 2.7-4.2 [facility]2017-02-06 10:22:00 Test Item Value Reference Range Interpretation Comments A/G Ratio (test code = A/G Ratio) 0.5 0.7-1.6 [facility]2017-02-06 10:22:00 Test Item Value Reference Range Interpretation Comments Magnesium Lvl (test code = Magnesium 2.0 1.8-2.4 Lvl) [facility]2017-02-06 10:22:00 Test Item Value Reference Range Interpretation Comments Phosphorus (test code = Phosphorus) 3.7 2.5-4.5 [facility]anoFpehurwYAGBNNHCLD3769-49-18 10:22:00 Test Item Value Reference Range Interpretation Comments RDW (test code = RDW) 17.7 11.5-14.5 [facility]anoYnvftrwRGZFNCGWKR9702-25-74 10:22:00 Test Item Value Reference Range Interpretation Comments MCHC (test code = MCHC) 32.9 32.0-36.0 [facility]anoWwtloxlBRWVVMCDGR6252-21-48 10:22:00 Test Item Value Reference Range Interpretation Comments Hct (test code = Hct) 25.4 36.0-48.0 [facility]anoEomqbudWHUJZJLYLY9514-62-46 10:22:00 Test Item Value Reference Range Interpretation Comments MCH (test code = MCH) 26.4 pg 27.0-31.0 [facility]anoSagxtqpQQXPPXESUC3663-78-16 10:22:00 Test Item Value Reference Range Interpretation Comments MCV (test code = MCV) 80.3 80.0-98.0 [facility]anoQsngphqCEUXKHOQHL6766-75-87 10:22:00 Test Item Value Reference Range Interpretation Comments MPV (test code = MPV) 11.4 7.4-10.4 [facility]anoKhnmxnfDGGQLZSFYE2415-78-77 10:22:00 Test Item Value Reference Range Interpretation Comments Platelet (test code = Platelet) 74 133-450 [facility]anoFjqscfaTYBSDBHORF5867-58-40 10:22:00 Test Item Value Reference Range Interpretation Comments RBC (test code = RBC) 3.16 4.20-5.40 [facility]anoSvxlxcnEBYRBZVYKT0612-51-21 10:22:00 Test Item Value Reference Range Interpretation Comments WBC (test code = WBC) 5.3 3.7-10.4 [facility] PlanoMcgbmybXBZWUNQGSV3271-38-32 10:22:00 Test Item Value Reference Range Interpretation Comments Hgb (test code = Hgb) 8.4 12.0-16.0 [facility] PlanoNclrhabORQONXJJWP1756-69-03 10:22:00 Test Item Value Reference Range Interpretation Comments Monocytes (test code = Monocytes) 14.5 2.0-12.0 [facility] PlanoFomolhsBBJCLZYCYT7879-34-35 10:22:00 Test Item Value Reference Range Interpretation Comments Lymphocytes (test code = Lymphocytes) 29.8 20.0-40.0 [facility] PlanoKfanyclALIRMGLGKF3889-28-52 10:22:00 Test Item Value Reference Range Interpretation Comments Eosinophils # (test code 0.1 See_Comment [A utomated message] The = Eosinophils #) system whic h generated this result tra nsmitted reference range : <=0.5. The reference r leo was not used to int erpret this result as normal/abnormal . [facility]anoOerjiruLAJDKSGWPD3935-61-02 10:22:00 Test Item Value Reference Range Interpretation Comments Monocytes # (test code 0.8 See_Comment [Aut omated message] The = Monocytes #) system which generated this result tra nsmitted reference range : <=0.8. The reference r leo was not used to int erpret this result as normal/abnormal . [facility]ivqBCVNSCZDEY1351-52-54 10:22:00 Test Item Value Reference Range Interpretation Comments Segs-Bands # (test code = Segs-Bands #) 2.9 1.5-8.1 [facility]VunsnquFNDTWMCZIG1858-51-33 10:22:00 Test Item Value Reference Range Interpretation Comments Lymphocytes # (test code = Lymphocytes 1.6 1.0-5.5 #) [facility] HospitalZrfurbpIGEDZGIWIP3996-39-13 10:22:00 Test Item Value Reference Range Interpretation Comments Basophils (test code = 0.4 See_Comment [Aut omated message] The Basophils) system which ge nerated this result tra nsmitted reference range : <=1.0. The reference r leo was not used to int erpret this result as normal/abnormal . [facility]anoAwhwqgjCQBTKGRBCE4502-48-12 10:22:00 Test Item Value Reference Range Interpretation Comments Eosinophils (test code = 1.2 See_Comment [A utomated message] The Eosinophils) system which ge nerated this result tra nsmitted reference range : <=4.0. The reference r loe was not used to int erpret this result as normal/abnormal . [facility] HospitalHwripwgBJOKDRHLRD6329-51-69 10:22:00 Test Item Value Reference Range Interpretation Comments Segs (test code = Segs) 54.1 45.0-75.0 [facility]SPE[facility] HLNXZZRYP6660-13-18 10:22:00 Test Item Value Reference Range Interpretation Comments Hgb A1C (test code = Hgb A1C) 8.9 [facility] ASMKANN3966-08-66 10:22:00 Test Item Value Reference Range Interpretation Comments Total CK (test code = Total CK) 190 12-191 [facility]annCHE[facility] [id number] 10:22:00 Test Item Value Reference Range Interpretation Comments Calcium Lvl (test code = Calcium Lvl) 7.8 8.5-10.5 [facility] StationannCHEM [id number] 10:22:00 Test Item Value Reference Range Interpretation Comments CO2 (test code = CO2) 21 24-32 [facility] StationannCHE[facility] [id number] 10:22:00 Test Item Value Reference Range Interpretation Comments Sodium Lvl (test code = Sodium Lvl) 140 135-145 [facility]2017-02-06 10:22:00 Test Item Value Reference Range Interpretation Comments Potassium Lvl (test code = Potassium 3.8 3.5-5.1 Lvl) [facility]2017-02-06 10:22:00 Test Item Value Reference Range Interpretation Comments Chloride Lvl (test code = Chloride Lvl) 106 95-109 [facility]2017-02-06 10:22:00 Test Item Value Reference Range Interpretation Comments Bili Total (test code = Bili Total) 0.4 0.2-1.3 [facility]2017-02-06 10:22:00 Test Item Value Reference Range Interpretation Comments Alk Phos (test code = Alk Phos) 74 39-136 [facility]2017-02-06 10:22:00 Test Item Value Reference Range Interpretation Comments eGFR (test code = eGFR) 19 [facility]2017-02-06 10:22:00 Test Item Value Reference Range Interpretation Comments Total Protein (test code = Total 5.2 6.4-8.4 Protein) [facility]2017-02-06 10:22:00 Test Item Value Reference Range Interpretation Comments ALT (test code = ALT) 822 See_Comment [Auto mated message] The system which ge nerated this result transmit rohit reference range : <=65. The reference range was not used to interpr et this result as reji l/abnormal. [facility]2017-02-06 10:22:00 Test Item Value Reference Range Interpretation Comments AST (test code = AST) 205 See_Comment [Auto mated message] The system which ge nerated this result transmit rohit reference range : <=37. The reference range was not used to interpr et this result as reji l/abnormal. [facility]2017-02-06 10:22:00 Test Item Value Reference Range Interpretation Comments Albumin Lvl (test code = Albumin Lvl) 1.8 3.5-5.0 [facility]2017-02-06 10:22:00 Test Item Value Reference Range Interpretation Comments BUN (test code = BUN) 54 7-22 [facility]2017-02-06 10:22:00 Test Item Value Reference Range Interpretation Comments Glucose Lvl (test code = Glucose Lvl) 143 70-99 [facility]2017-02-06 10:22:00 Test Item Value Reference Range Interpretation Comments Creatinine Lvl (test code = Creatinine 3.11 0.50-1.40 Lvl) [facility]2017-02-06 10:22:00 Test Item Value Reference Range Interpretation Comments B/C Ratio (test code = B/C Ratio) 17 6-25 [facility]2017-02-06 10:22:00 Test Item Value Reference Range Interpretation Comments AGAP (test code = AGAP) 16.8 10.0-20.0 [facility]2017-02-06 10:22:00 Test Item Value Reference Range Interpretation Comments Globulin (test code = Globulin) 3.4 2.7-4.2 [facility]2017-02-06 10:22:00 Test Item Value Reference Range Interpretation Comments A/G Ratio (test code = A/G Ratio) 0.5 0.7-1.6 [facility]2017-02-06 10:22:00 Test Item Value Reference Range Interpretation Comments Magnesium Lvl (test code = Magnesium 2.0 1.8-2.4 Lvl) [facility]2017-02-06 10:22:00 Test Item Value Reference Range Interpretation Comments Phosphorus (test code = Phosphorus) 3.7 2.5-4.5 [facility]anoJcpbvloDRBPXRBSZW0796-94-33 10:22:00 Test Item Value Reference Range Interpretation Comments RDW (test code = RDW) 17.7 11.5-14.5 [facility]anoBnidckvBAFNHNPRDQ2134-23-48 10:22:00 Test Item Value Reference Range Interpretation Comments MCHC (test code = MCHC) 32.9 32.0-36.0 [facility]anoSlcuumrRLMOYGWBTD5056-74-28 10:22:00 Test Item Value Reference Range Interpretation Comments Hct (test code = Hct) 25.4 36.0-48.0 [facility]anoLplxzmoMLVKUWHIBG6889-21-82 10:22:00 Test Item Value Reference Range Interpretation Comments MCH (test code = MCH) 26.4 pg 27.0-31.0 [facility]anoPgedulyMAKBGIUIUJ7580-05-39 10:22:00 Test Item Value Reference Range Interpretation Comments MCV (test code = MCV) 80.3 80.0-98.0 [facility]anoRefsfvrUVATCLKHIV0199-98-86 10:22:00 Test Item Value Reference Range Interpretation Comments MPV (test code = MPV) 11.4 7.4-10.4 [facility]anoHftgjapJQGIUCCGNF2954-83-24 10:22:00 Test Item Value Reference Range Interpretation Comments Platelet (test code = Platelet) 74 133-450 [facility]anoQyqpcapWTNNGEKRXZ1526-35-62 10:22:00 Test Item Value Reference Range Interpretation Comments RBC (test code = RBC) 3.16 4.20-5.40 [facility]anoOdwqoxzXBYLLELBOE2066-86-40 10:22:00 Test Item Value Reference Range Interpretation Comments WBC (test code = WBC) 5.3 3.7-10.4 [facility]anoVvenedhIKPXCPOCIM0323-47-27 10:22:00 Test Item Value Reference Range Interpretation Comments Hgb (test code = Hgb) 8.4 12.0-16.0 [facility]anoWmtucpcPNEAAFYJVO3568-50-06 10:22:00 Test Item Value Reference Range Interpretation Comments Monocytes (test code = Monocytes) 14.5 2.0-12.0 [facility]anoZcbnonsLHEDUVREFI0823-47-50 10:22:00 Test Item Value Reference Range Interpretation Comments Lymphocytes (test code = Lymphocytes) 29.8 20.0-40.0 [facility]anoXhnusxeIMOTIMEOWH4697-83-16 10:22:00 Test Item Value Reference Range Interpretation Comments Eosinophils # (test code 0.1 See_Comment [A utomated message] The = Eosinophils #) system [facility] h generated this result tra nsmitted reference range : <=0.5. The reference r leo was not used to int erpret this result as normal/abnormal . [facility]anoNthjmcjXCKSVVMZUN0047-80-91 10:22:00 Test Item Value Reference Range Interpretation Comments Monocytes # (test code 0.8 See_Comment [Aut omated message] The = Monocytes #) system which generated this result tra nsmitted reference range : <=0.8. The reference r leo was not used to int erpret this result as normal/abnormal . [facility]anoCsbvnhpKATMVTPXAL1275-33-80 10:22:00 Test Item Value Reference Range Interpretation Comments Segs-Bands # (test code = Segs-Bands #) 2.9 1.5-8.1 [facility]RuqnbjiDOBLJQLUUZ1995-52-15 10:22:00 Test Item Value Reference Range Interpretation Comments Lymphocytes # (test code = Lymphocytes 1.6 1.0-5.5 #) [facility]AgpgojwODRUCACKZG7329-03-18 10:22:00 Test Item Value Reference Range Interpretation Comments Basophils (test code = 0.4 See_Comment [Aut omated message] The Basophils) system which ge nerated this result tra nsmitted reference range : <=1.0. The reference r leo was not used to int erpret this result as normal/abnormal . [facility] HospitalVqtuuoiBUMAZKLVYN3587-28-86 10:22:00 Test Item Value Reference Range Interpretation Comments Eosinophils (test code = 1.2 See_Comment [A utomated message] The Eosinophils) system which ge nerated this result tra nsmitted reference range : <=4.0. The reference r leo was not used to int erpret this result as normal/abnormal . [facility] HospitalOiizaveWQTQKICDCG7769-92-03 10:22:00 Test Item Value Reference Range Interpretation Comments Segs (test code = Segs) 54.1 45.0-75.0 [facility] EESHYPLZS7477-32-78 10:22:00 Test Item Value Reference Range Interpretation Comments Hgb A1C (test code = Hgb A1C) 8.9 [facility] GJVWOWZ6579-11-29 10:22:00 Test Item Value Reference Range Interpretation Comments Total CK (test code = Total CK) 190 12-191 [facility] StationB[facility] IonicsCHEM [id number] 10:22:00 Test Item Value Reference Range Interpretation Comments Calcium Lvl (test code = Calcium Lvl) 7.8 8.5-10.5 [facility] StationannCHEM [id number] 10:22:00 Test Item Value Reference Range Interpretation Comments CO2 (test code = CO2) 21 24-32 [facility] StationannCHEM [id number] 10:22:00 Test Item Value Reference Range Interpretation Comments Sodium Lvl (test code = Sodium Lvl) 140 135-145 [facility] StationMailPix [id number] 10:22:00 Test Item Value Reference Range Interpretation Comments Potassium Lvl (test code = Potassium 3.8 3.5-5.1 Lvl) [facility]2017-02-06 10:22:00 Test Item Value Reference Range Interpretation Comments Chloride Lvl (test code = Chloride Lvl) 106 95-109 [facility]2017-02-06 10:22:00 Test Item Value Reference Range Interpretation Comments Bili Total (test code = Bili Total) 0.4 0.2-1.3 [facility]2017-02-06 10:22:00 Test Item Value Reference Range Interpretation Comments Alk Phos (test code = Alk Phos) 74 39-136 [facility]2017-02-06 10:22:00 Test Item Value Reference Range Interpretation Comments eGFR (test code = eGFR) 19 [facility]2017-02-06 10:22:00 Test Item Value Reference Range Interpretation Comments Total Protein (test code = Total 5.2 6.4-8.4 Protein) [facility]2017-02-06 10:22:00 Test Item Value Reference Range Interpretation Comments ALT (test code = ALT) 822 See_Comment [Auto mated message] The system which ge nerated this result transmit rohit reference range : <=65. The reference range was not used to interpr et this result as reji l/abnormal. [facility]2017-02-06 10:22:00 Test Item Value Reference Range Interpretation Comments AST (test code = AST) 205 See_Comment [Auto mated message] The system which ge nerated this result transmit rohit reference range : <=37. The reference range was not used to interpr et this result as reji l/abnormal. [facility]2017-02-06 10:22:00 Test Item Value Reference Range Interpretation Comments Albumin Lvl (test code = Albumin Lvl) 1.8 3.5-5.0 [facility]2017-02-06 10:22:00 Test Item Value Reference Range Interpretation Comments BUN (test code = BUN) 54 7-22 [facility]2017-02-06 10:22:00 Test Item Value Reference Range Interpretation Comments Glucose Lvl (test code = Glucose Lvl) 143 70-99 [facility]2017-02-06 10:22:00 Test Item Value Reference Range Interpretation Comments Creatinine Lvl (test code = Creatinine 3.11 0.50-1.40 Lvl) [facility]2017-02-06 10:22:00 Test Item Value Reference Range Interpretation Comments B/C Ratio (test code = B/C Ratio) 17 6-25 [facility]2017-02-06 10:22:00 Test Item Value Reference Range Interpretation Comments AGAP (test code = AGAP) 16.8 10.0-20.0 [facility]2017-02-06 10:22:00 Test Item Value Reference Range Interpretation Comments Globulin (test code = Globulin) 3.4 2.7-4.2 [facility]2017-02-06 10:22:00 Test Item Value Reference Range Interpretation Comments A/G Ratio (test code = A/G Ratio) 0.5 0.7-1.6 [facility]2017-02-06 10:22:00 Test Item Value Reference Range Interpretation Comments Magnesium Lvl (test code = Magnesium 2.0 1.8-2.4 Lvl) [facility]2017-02-06 10:22:00 Test Item Value Reference Range Interpretation Comments Phosphorus (test code = Phosphorus) 3.7 2.5-4.5 [facility]anoMaseuniSCKPQTLMWS0586-70-65 10:22:00 Test Item Value Reference Range Interpretation Comments RDW (test code = RDW) 17.7 11.5-14.5 [facility]anoJukkfflOHOASTSVKU3219-66-04 10:22:00 Test Item Value Reference Range Interpretation Comments MCHC (test code = MCHC) 32.9 32.0-36.0 [facility]anoXazydylITSZOLSWTN4315-37-87 10:22:00 Test Item Value Reference Range Interpretation Comments Hct (test code = Hct) 25.4 36.0-48.0 [facility]anoVfbmbzpBUARMLRHKQ4639-88-72 10:22:00 Test Item Value Reference Range Interpretation Comments MCH (test code = MCH) 26.4 pg 27.0-31.0 [facility]anoBrgivqzJVEJDVNEUC5045-29-66 10:22:00 Test Item Value Reference Range Interpretation Comments MCV (test code = MCV) 80.3 80.0-98.0 [facility]anoFnbuqsySZUZAPTOHB0131-16-03 10:22:00 Test Item Value Reference Range Interpretation Comments MPV (test code = MPV) 11.4 7.4-10.4 [facility]anoCpiarqmCIYVBBVDLN7144-49-66 10:22:00 Test Item Value Reference Range Interpretation Comments Platelet (test code = Platelet) 74 133-450 [facility]anoDmjdbsrDMTMFGKFLJ3698-03-86 10:22:00 Test Item Value Reference Range Interpretation Comments RBC (test code = RBC) 3.16 4.20-5.40 [facility]anoKxijlqoPQEAOUJAHH3911-09-65 10:22:00 Test Item Value Reference Range Interpretation Comments WBC (test code = WBC) 5.3 3.7-10.4 [facility]anoMnzbgzlZPWWQZNWNL5326-52-92 10:22:00 Test Item Value Reference Range Interpretation Comments Hgb (test code = Hgb) 8.4 12.0-16.0 [facility]anoIfqpysmOXBVLRSTLZ6791-16-33 10:22:00 Test Item Value Reference Range Interpretation Comments Monocytes (test code = Monocytes) 14.5 2.0-12.0 [facility]anoArvhxulZBJBLOWLEF7623-22-88 10:22:00 Test Item Value Reference Range Interpretation Comments Lymphocytes (test code = Lymphocytes) 29.8 20.0-40.0 [facility]anoQvgahcsTXJRQDECKZ9974-42-40 10:22:00 Test Item Value Reference Range Interpretation Comments Eosinophils # (test code 0.1 See_Comment [A utomated message] The = Eosinophils #) system wh h generated this result tra nsmitted reference range : <=0.5. The reference r leo was not used to int erpret this result as normal/abnormal . [facility]anoNicbqioAPBWHEGLTD2228-21-09 10:22:00 Test Item Value Reference Range Interpretation Comments Monocytes # (test code 0.8 See_Comment [Aut omated message] The = Monocytes #) system which generated this result tra nsmitted reference range : <=0.8. The reference r leo was not used to int erpret this result as normal/abnormal . [facility]anoUfqjiimLUHTYUNQTC6632-78-95 10:22:00 Test Item Value Reference Range Interpretation Comments Segs-Bands # (test code = Segs-Bands #) 2.9 1.5-8.1 [facility]anoVqtyczfGZKCEYEICF7745-22-97 10:22:00 Test Item Value Reference Range Interpretation Comments Lymphocytes # (test code = Lymphocytes 1.6 1.0-5.5 #) [facility]anoFftdsrgTSLPTNFUPU0287-95-69 10:22:00 Test Item Value Reference Range Interpretation Comments Basophils (test code = 0.4 See_Comment [Aut omated message] The Basophils) system which ge nerated this result tra nsmitted reference range : <=1.0. The reference r leo was not used to int erpret this result as normal/abnormal . [facility]OwbzffpRUDGYWDNEH8217-93-27 10:22:00 Test Item Value Reference Range Interpretation Comments Eosinophils (test code = 1.2 See_Comment [A utomated message] The Eosinophils) system which ge nerated this result tra nsmitted reference range : <=4.0. The reference r leo was not used to int erpret this result as normal/abnormal . [facility] HospitalXkyetnuDMALRIADUE0539-86-49 10:22:00 Test Item Value Reference Range Interpretation Comments Segs (test code = Segs) 54.1 45.0-75.0 [facility] GLPBSVBHB6350-21-97 10:22:00 Test Item Value Reference Range Interpretation Comments Hgb A1C (test code = Hgb A1C) 8.9 [facility] [id number] 10:22:00 Test Item Value Reference Range Interpretation Comments Total CK (test code = Total CK) 190 12-191 [facility] StationB[facility] IonicsCHEM [id number] 10:22:00 Test Item Value Reference Range Interpretation Comments Calcium Lvl (test code = Calcium Lvl) 7.8 8.5-10.5 [facility] StationMailPix [id number] 10:22:00 Test Item Value Reference Range Interpretation Comments CO2 (test code = CO2) 21 24-32 [facility] StationMail[facility] UUGMY2596-08-56 10:22:00 Test Item Value Reference Range Interpretation Comments Sodium Lvl (test code = Sodium Lvl) 140 135-145 [facility] StationMail[facility] [id number] 10:22:00 Test Item Value Reference Range Interpretation Comments Potassium Lvl (test code = Potassium 3.8 3.5-5.1 Lvl) [facility] StationannMDVIP [id number] 10:22:00 Test Item Value Reference Range Interpretation Comments Chloride Lvl (test code = Chloride Lvl) 106 95-109 [facility] StationMail[facility] TZJSF3406-90-37 10:22:00 Test Item Value Reference Range Interpretation Comments Bili Total (test code = Bili Total) 0.4 0.2-1.3 [facility]2017-02-06 10:22:00 Test Item Value Reference Range Interpretation Comments Alk Phos (test code = Alk Phos) 74 39-136 [facility]2017-02-06 10:22:00 Test Item Value Reference Range Interpretation Comments eGFR (test code = eGFR) 19 [facility]2017-02-06 10:22:00 Test Item Value Reference Range Interpretation Comments Total Protein (test code = Total 5.2 6.4-8.4 Protein) [facility]2017-02-06 10:22:00 Test Item Value Reference Range Interpretation Comments ALT (test code = ALT) 822 See_Comment [Auto mated message] The system which ge nerated this result transmit rohit reference range : <=65. The reference range was not used to interpr et this result as reji l/abnormal. [facility]2017-02-06 10:22:00 Test Item Value Reference Range Interpretation Comments AST (test code = AST) 205 See_Comment [Auto mated message] The system which ge nerated this result transmit rohit reference range : <=37. The reference range was not used to interpr et this result as reji l/abnormal. [facility]2017-02-06 10:22:00 Test Item Value Reference Range Interpretation Comments Albumin Lvl (test code = Albumin Lvl) 1.8 3.5-5.0 [facility]2017-02-06 10:22:00 Test Item Value Reference Range Interpretation Comments BUN (test code = BUN) 54 7-22 [facility]2017-02-06 10:22:00 Test Item Value Reference Range Interpretation Comments Glucose Lvl (test code = Glucose Lvl) 143 70-99 [facility]2017-02-06 10:22:00 Test Item Value Reference Range Interpretation Comments Creatinine Lvl (test code = Creatinine 3.11 0.50-1.40 Lvl) [facility]2017-02-06 10:22:00 Test Item Value Reference Range Interpretation Comments B/C Ratio (test code = B/C Ratio) 17 6-25 [place] [id number] 10:22:00 Test Item Value Reference Range Interpretation Comments AGAP (test code = AGAP) 16.8 10.0-20.0 [facility]2017-02-06 10:22:00 Test Item Value Reference Range Interpretation Comments Globulin (test code = Globulin) 3.4 2.7-4.2 [facility]2017-02-06 10:22:00 Test Item Value Reference Range Interpretation Comments A/G Ratio (test code = A/G Ratio) 0.5 0.7-1.6 [facility]2017-02-06 10:22:00 Test Item Value Reference Range Interpretation Comments Magnesium Lvl (test code = Magnesium 2.0 1.8-2.4 Lvl) [facility]2017-02-06 10:22:00 Test Item Value Reference Range Interpretation Comments Phosphorus (test code = Phosphorus) 3.7 2.5-4.5 [facility]anoJsbvdeqIRIWDZIPTT9961-21-85 10:22:00 Test Item Value Reference Range Interpretation Comments RDW (test code = RDW) 17.7 11.5-14.5 [facility]anoRssviaaVEEAUAWXYK1361-63-37 10:22:00 Test Item Value Reference Range Interpretation Comments MCHC (test code = MCHC) 32.9 32.0-36.0 [facility]anoInzspxwAHAQSCUYZB9857-55-67 10:22:00 Test Item Value Reference Range Interpretation Comments Hct (test code = Hct) 25.4 36.0-48.0 [facility]anoHsuhxroBCDOSCQHHW8230-60-81 10:22:00 Test Item Value Reference Range Interpretation Comments MCH (test code = MCH) 26.4 pg 27.0-31.0 [facility]anoFnlykjaQQOGGECXXP4309-10-56 10:22:00 Test Item Value Reference Range Interpretation Comments MCV (test code = MCV) 80.3 80.0-98.0 [facility]anoFgghfcoYGHCZSZTOG2934-25-21 10:22:00 Test Item Value Reference Range Interpretation Comments MPV (test code = MPV) 11.4 7.4-10.4 [facility] PlanoXansuayCPWZOHTQPJ5104-78-25 10:22:00 Test Item Value Reference Range Interpretation Comments Platelet (test code = Platelet) 74 133-450 [facility]anoJgujlyxTFZFWQKLCD9615-00-94 10:22:00 Test Item Value Reference Range Interpretation Comments RBC (test code = RBC) 3.16 4.20-5.40 [facility]anoJlcdqwyEWYUSSWCCE7246-70-13 10:22:00 Test Item Value Reference Range Interpretation Comments WBC (test code = WBC) 5.3 3.7-10.4 [facility]anoKomopfrZVWRUGDEDW6168-40-62 10:22:00 Test Item Value Reference Range Interpretation Comments Hgb (test code = Hgb) 8.4 12.0-16.0 [facility]anoJfpliymCPYIRPSWKB3814-39-56 10:22:00 Test Item Value Reference Range Interpretation Comments Monocytes (test code = Monocytes) 14.5 2.0-12.0 [facility]anoIgnwmceFIGMFBUHFA0715-37-96 10:22:00 Test Item Value Reference Range Interpretation Comments Lymphocytes (test code = Lymphocytes) 29.8 20.0-40.0 [facility] PlanoDkebwnaPSDJLROACA8753-97-17 10:22:00 Test Item Value Reference Range Interpretation Comments Eosinophils # (test code 0.1 See_Comment [A utomated message] The = Eosinophils #) system wh h generated this result tra nsmitted reference range : <=0.5. The reference r leo was not used to int erpret this result as normal/abnormal . [facility]anoCqxysxtREYYINJGHS3961-55-84 10:22:00 Test Item Value Reference Range Interpretation Comments Monocytes # (test code 0.8 See_Comment [Aut omated message] The = Monocytes #) system which generated this result tra nsmitted reference range : <=0.8. The reference r leo was not used to int erpret this result as normal/abnormal . [facility] PlanoJxzochcGDGASYLJBS7610-19-83 10:22:00 Test Item Value Reference Range Interpretation Comments Segs-Bands # (test code = Segs-Bands #) 2.9 1.5-8.1 [facility] PlanoZeybdjwUHLBJBZTNG4605-28-91 10:22:00 Test Item Value Reference Range Interpretation Comments Lymphocytes # (test code = Lymphocytes 1.6 1.0-5.5 #) [facility] PlanoWmaheupFHPVBRPNTT8316-88-44 10:22:00 Test Item Value Reference Range Interpretation Comments Basophils (test code = 0.4 See_Comment [Aut omated message] The Basophils) system which ge nerated this result tra nsmitted reference range : <=1.0. The reference r leo was not used to int erpret this result as normal/abnormal . [facility]ae[facility]geZFYRWBPZHC1693-[facility] 10:22:00 Test Item Value Reference Range Interpretation Comments Eosinophils (test code = 1.2 See_Comment [A utomated message] The Eosinophils) system which ge nerated this result tra nsmitted reference range : <=4.0. The reference r leo was not used to int erpret this result as normal/abnormal . [facility]CxdieddTHORXTLTPD8155-24-22 10:22:00 Test Item Value Reference Range Interpretation Comments Segs (test code = Segs) 54.1 45.0-75.0 [facility]SPE[facility] YPPFFNYUR0086-98-14 10:22:00 Test Item Value Reference Range Interpretation Comments Hgb A1C (test code = Hgb A1C) 8.9 [facility] StationannCARDIAC RRKLKTP2265-54-66 17:40:00 Test Item Value Reference Range Interpretation Comments Total CK (test code = Total CK) 344 12-191 [facility] StationDhzvubqCEVTJIEIHK7362-30-94 17:40:00 Test Item Value Reference Range Interpretation Comments IVETTE (test code = IVETTE) Positive *ABN*(07/26/16 11:40 AM) [facility] StationJtgxhfdSSBWTCKEAO9563-71-71 17:40:00 Test Item Value Reference Range Interpretation Comments CRIME SPECIALIST Ab (test code = CRIME SPECIALIST Ab) no gt [facility] StationUduoaheITWBHFVVUM1349-44-10 17:40:00 Test Item Value Reference Range Interpretation Comments Sm Ab (test code = Sm Ab) no [facility]TdkxuzyAIXUIDLIEV7707-10-76 17:40:00 Test Item Value Reference Range Interpretation Comments IVETTE Interp (test code Pattern appears = IVETTE Interp) Nucleolar. [facility] OzcewflNPNOMKRWIV5108-69-77 17:40:00 Test Item Value Reference Range Interpretation Comments SS-B (La) Ab (test code = SS-B (La) Ab) no [facility] HealthVribyjnWOCUEXXRXY5778-55-44 17:40:00 Test Item Value Reference Range Interpretation Comments SS-A (Ro) Ab (test code = SS-A (Ro) Ab) no [facility] HealthUtonmyfYGVYTVOEAU7051-24-29 17:40:00 Test Item Value Reference Range Interpretation Comments DNA Ab (DS) (test Negative (07/26/16 11:40 code = DNA Ab (DS)) AM) [facility] StationUguyqlfIGUSMXBWGA4226-99-59 17:40:00 Test Item Value Reference Range Interpretation Comments IVETTE Titer (test code = 1:40 *ABN*(07/26/16 IVETTE Titer) 11:40 AM) [facility] [id number] 17:40:00 Test Item Value Reference Range Interpretation Comments U Sodium (test code = U Sodium) 21 [facility] GPVWPIA6879-05-33 17:40:00 Test Item Value Reference Range Interpretation Comments Total CK (test code = Total CK) 344 12-191 [facility]PdctnxtSEOZCSTXHB5725-28-79 17:40:00 Test Item Value Reference Range Interpretation Comments IVETTE (test code = IVETTE) Positive *ABN*(07/26/16 11:40 AM) [facility] StationEmkzebtIGCGQWSAEB3536-44-33 17:40:00 Test Item Value Reference Range Interpretation Comments CRIME SPECIALIST Ab (test code = CRIME SPECIALIST Ab) no gt [facility]GpycslpYXPPLJPEWN0097-29-12 17:40:00 Test Item Value Reference Range Interpretation Comments Sm Ab (test code = Sm Ab) no gt [facility] StationRfdloutXJLHQLEGOO5655-49-61 17:40:00 Test Item Value Reference Range Interpretation Comments IVETTE Interp (test code Pattern appears = IVETTE Interp) Nucleolar. [facility] StationVodqwrhXRJLAZGGNA3035-13-38 17:40:00 Test Item Value Reference Range Interpretation Comments SS-B (La) Ab (test code = SS-B (La) Ab) no gt [facility] StationXrobtyxIWHFYHKINT6863-43-42 17:40:00 Test Item Value Reference Range Interpretation Comments SS-A (Ro) Ab (test code = SS-A (Ro) Ab) no gt [facility] StationRqysnqiOTDQQAGRMN2200-07-48 17:40:00 Test Item Value Reference Range Interpretation Comments DNA Ab (DS) (test Negative (07/26/16 11:40 code = DNA Ab (DS)) AM) [facility] StationIygrnsqXIRHHHYXNW1026-34-62 17:40:00 Test Item Value Reference Range Interpretation Comments IVETTE Titer (test code = 1:40 *ABN*(07/26/16 IVETTE Titer) 11:40 AM) [facility] [id number] 17:40:00 Test Item Value Reference Range Interpretation Comments U Sodium (test code = U Sodium) 21 [facility] VURBQTI6375-13-28 17:40:00 Test Item Value Reference Range Interpretation Comments Total CK (test code = Total CK) 344 12 [facility] OasjedvTXPAWVQJPK0372-51-89 17:40:00 Test Item Value Reference Range Interpretation Comments IVETTE (test code = IVETTE) Positive *ABN*(07/26/16 11:40 AM) [facility] FdszwdmRHKMISDUBN4696-99-86 17:40:00 Test Item Value Reference Range Interpretation Comments CRIME SPECIALIST Ab (test code = CRIME SPECIALIST Ab) no gt [facility] PjtakyhGRRSXMLMWI5013-77-92 17:40:00 Test Item Value Reference Range Interpretation Comments Sm Ab (test code = Sm Ab) no gt [facility] SwnuuvnIZNFDZYDFC1578-29-24 17:40:00 Test Item Value Reference Range Interpretation Comments IVETTE Interp (test code Pattern appears = IVETTE Interp) Nucleolar. [facility] GeilexnFBLBERWGIQ3465-51-29 17:40:00 Test Item Value Reference Range Interpretation Comments SS-B (La) Ab (test code = SS-B (La) Ab) no gt [facility] AbhvezaUAHRJXIXTI6772-25-70 17:40:00 Test Item Value Reference Range Interpretation Comments SS-A (Ro) Ab (test code = SS-A (Ro) Ab) no gt [facility] McpjonwOJAIQDARGN6370-20-12 17:40:00 Test Item Value Reference Range Interpretation Comments DNA Ab (DS) (test Negative (07/26/16 11:40 code = DNA Ab (DS)) AM) [facility] HzavggkRIIAEPMBVJ2560-83-86 17:40:00 Test Item Value Reference Range Interpretation Comments IVETTE Titer (test code = 1:40 *ABN*(07/26/16 IVETTE Titer) 11:40 AM) [facility] StationannURINE YFSE3821-22-42 17:40:00 Test Item Value Reference Range Interpretation Comments U Sodium (test code = U Sodium) 21 [facility] StationannCARDIAC DSVKGCR1404-49-10 17:40:00 Test Item Value Reference Range Interpretation Comments Total CK (test code = Total CK) 344 12191 [facility] StationFunnhttKDDEKFLBSY8898-57-17 17:40:00 Test Item Value Reference Range Interpretation Comments IVETTE (test code = IVETTE) Positive *ABN*(07/26/16 11:40 AM) [facility] StationBwcwbruPGYVBFQGFP4533-19-47 17:40:00 Test Item Value Reference Range Interpretation Comments CRIME SPECIALIST Ab (test code = CRIME SPECIALIST Ab) no gt [facility] JrugenqRBOHXGXSUN5440-66-56 17:40:00 Test Item Value Reference Range Interpretation Comments Sm Ab (test code = Sm Ab) no gt [facility] FfcvwmiVGGFUNTGTB8233-07-15 17:40:00 Test Item Value Reference Range Interpretation Comments IVETTE Interp (test code Pattern appears = IVETTE Interp) Nucleolar. [facility] UzmyqoiTNAMLZKJBQ0665-78-61 17:40:00 Test Item Value Reference Range Interpretation Comments SS-B (La) Ab (test code = SS-B (La) Ab) no gt [facility] JirxgxmNTTYQDNLII2826-09-89 17:40:00 Test Item Value Reference Range Interpretation Comments SS-A (Ro) Ab (test code = SS-A (Ro) Ab) no gt [facility] KxncwzlOSHYJBPWWP0382-02-11 17:40:00 Test Item Value Reference Range Interpretation Comments DNA Ab (DS) (test Negative (07/26/16 11:40 code = DNA Ab (DS)) AM) [facility] StationBayiglgDLJHTHOVBY4342-05-92 17:40:00 Test Item Value Reference Range Interpretation Comments IVETTE Titer (test code = 1:40 *ABN*(07/26/16 IVETTE Titer) 11:40 AM) [facility] StationannURINE FEHA4013-66-16 17:40:00 Test Item Value Reference Range Interpretation Comments U Sodium (test code = U Sodium) 21 [facility] StationannCARDIAC WYAQHGJ1151-28-70 17:40:00 Test Item Value Reference Range Interpretation Comments Total CK (test code = Total CK) 344 12-191 [facility] HnikeduOPZUWEVYAN8761-65-11 17:40:00 Test Item Value Reference Range Interpretation Comments IVETTE (test code = IVETTE) Positive *ABN*(07/26/16 11:40 AM) [facility] VejfjahHEATWUWPIG5655-46-83 17:40:00 Test Item Value Reference Range Interpretation Comments CRIME SPECIALIST Ab (test code = CRIME SPECIALIST Ab) no gt [facility] NhrsyevPUIZBJPWOL1560-40-98 17:40:00 Test Item Value Reference Range Interpretation Comments Sm Ab (test code = Sm Ab) no gt [facility] RzbbgvsICZOSNTIYQ8748-83-75 17:40:00 Test Item Value Reference Range Interpretation Comments IVETTE Interp (test code Pattern appears = IVETTE Interp) Nucleolar. [facility] YdmmsuuJNLGINBIUA0696-22-13 17:40:00 Test Item Value Reference Range Interpretation Comments SS-B (La) Ab (test code = SS-B (La) Ab) no gt [facility] StationDluhlbrZOLZYVICWZ3298-70-54 17:40:00 Test Item Value Reference Range Interpretation Comments SS-A (Ro) Ab (test code = SS-A (Ro) Ab) no gt [facility] StationRofylalJXUHQTQYKF7394-10-53 17:40:00 Test Item Value Reference Range Interpretation Comments DNA Ab (DS) (test Negative (07/26/16 11:40 code = DNA Ab (DS)) AM) [facility] StationGbzaldnHJTMMSRQTK3743-85-05 17:40:00 Test Item Value Reference Range Interpretation Comments IVETTE Titer (test code = 1:40 *ABN*(07/26/16 IVETTE Titer) 11:40 AM) [facility]2017-02-05 17:40:00 Test Item Value Reference Range Interpretation Comments U Sodium (test code = U Sodium) 21 [facility]OwefvncSXLTTJEDUE8363-45-65 14:00:00 Test Item Value Reference Range Interpretation Comments INR (test code = INR) 1.11 0.85-1.17 [facility]LsipjurXRNQWEYYEE6438-42-20 14:00:00 Test Item Value Reference Range Interpretation Comments PT (test code = PT) 14.5 s 12.0-14.7 [facility]FsohyspHSUUIUHCYK0598-83-90 14:00:00 Test Item Value Reference Range Interpretation Comments Hep A IgM (test code Negative *NA*(07/26/16 = Hep A IgM) 8:00 AM) [facility] StationQmgzbagTTCKORGHZY9332-25-87 14:00:00 Test Item Value Reference Range Interpretation Comments Hep B Core IgM (test Negative *NA*(07/26/16 code = Hep B Core 8:00 AM) IgM) [facility] StationQcatgzoMOZVOFYBYN8320-30-00 14:00:00 Test Item Value Reference Range Interpretation Comments Hep C Ab (test code = Negative *NA*(07/26/16 Hep C Ab) 8:00 AM) [facility] HospitalYglerqgZZQGIJMIZG2103-50-06 14:00:00 Test Item Value Reference Range Interpretation Comments Hep Bs Ag (test code Negative *NA*(07/26/16 = Hep Bs Ag) 8:00 AM) [facility]SaeacsiWYXVLAZILD1305-10-41 14:00:00 Test Item Value Reference Range Interpretation Comments INR (test code = INR) 1.11 0.85-1.17 [facility]QgrryyaWTBHOXUFIA5107-24-53 14:00:00 Test Item Value Reference Range Interpretation Comments PT (test code = PT) 14.5 s 12.0-14.7 [facility] TempleGrsbxaqLLOLWPOZCP7519-44-79 14:00:00 Test Item Value Reference Range Interpretation Comments Hep A IgM (test code Negative *NA*(07/26/16 = Hep A IgM) 8:00 AM) [facility] TempleCvxhqrhICOMNSWEUD8784-87-05 14:00:00 Test Item Value Reference Range Interpretation Comments Hep B Core IgM (test Negative *NA*(07/26/16 code = Hep B Core 8:00 AM) IgM) [facility] TempleRgsstvfBEKTABQRFJ3090-74-87 14:00:00 Test Item Value Reference Range Interpretation Comments Hep C Ab (test code = Negative *NA*(07/26/16 Hep C Ab) 8:00 AM) [facility] TempleGavftvtUEHMYXLWCH2563-81-16 14:00:00 Test Item Value Reference Range Interpretation Comments Hep Bs Ag (test code Negative *NA*(07/26/16 = Hep Bs Ag) 8:00 AM) [facility]anoLtaovhiDYBFNRQKVJ0072-61-51 14:00:00 Test Item Value Reference Range Interpretation Comments INR (test code = INR) 1.11 0.85-1.17 [facility]anoJdjplmhXZXMYHDDAT4308-63-54 14:00:00 Test Item Value Reference Range Interpretation Comments PT (test code = PT) 14.5 s 12.0-14.7 [facility] TempleBimfwwvPEJCFLQGAQ0329-91-82 14:00:00 Test Item Value Reference Range Interpretation Comments Hep A IgM (test code Negative *NA*(07/26/16 = Hep A IgM) 8:00 AM) [facility] TempleGyvhupyQDEZDWLFWD6746-22-20 14:00:00 Test Item Value Reference Range Interpretation Comments Hep B Core IgM (test Negative *NA*(07/26/16 code = Hep B Core 8:00 AM) IgM) [facility] TempleHrtfdnjBOKOFFIRUJ2632-68-60 14:00:00 Test Item Value Reference Range Interpretation Comments Hep C Ab (test code = Negative *NA*(07/26/16 Hep C Ab) 8:00 AM) [facility] TempleDfxipgrPHHCQMKTNT0954-87-06 14:00:00 Test Item Value Reference Range Interpretation Comments Hep Bs Ag (test code Negative *NA*(07/26/16 = Hep Bs Ag) 8:00 AM) [facility]anoSkjtbmrVQRIAHDXTC2778-33-24 14:00:00 Test Item Value Reference Range Interpretation Comments INR (test code = INR) 1.11 0.85-1.17 [facility]anoLwhalsdYYEWAYOOZJ2410-65-30 14:00:00 Test Item Value Reference Range Interpretation Comments PT (test code = PT) 14.5 s 12.0-14.7 [facility] TempleMdxuwraFHGAMGIKSC3907-38-88 14:00:00 Test Item Value Reference Range Interpretation Comments Hep A IgM (test code Negative *NA*(07/26/16 = Hep A IgM) 8:00 AM) [facility] TempleUfkiahnLDWINUYGOI9028-46-45 14:00:00 Test Item Value Reference Range Interpretation Comments Hep B Core IgM (test Negative *NA*(07/26/16 code = Hep B Core 8:00 AM) IgM) [facility] TempleDvychyzPXWJAKCYAA6337-24-43 14:00:00 Test Item Value Reference Range Interpretation Comments Hep C Ab (test code = Negative *NA*(07/26/16 Hep C Ab) 8:00 AM) [facility] TempleVwxzolvXZGQOLSMIQ4911-63-27 14:00:00 Test Item Value Reference Range Interpretation Comments Hep Bs Ag (test code Negative *NA*(07/26/16 = Hep Bs Ag) 8:00 AM) [facility]anoXyltceoTZOAMUHCIP0366-86-51 14:00:00 Test Item Value Reference Range Interpretation Comments INR (test code = INR) 1.11 0.85-1.17 [facility]anoIbyyxbjHKYGUYUIPG6722-02-75 14:00:00 Test Item Value Reference Range Interpretation Comments PT (test code = PT) 14.5 s 12.0-14.7 [facility] TempleDznkposJHJZRVGATH2456-31-75 14:00:00 Test Item Value Reference Range Interpretation Comments Hep A IgM (test code Negative *NA*(07/26/16 = Hep A IgM) 8:00 AM) [facility] TempleKzzpjxdWYOQTJAOGO5881-83-67 14:00:00 Test Item Value Reference Range Interpretation Comments Hep B Core IgM (test Negative *NA*(07/26/16 code = Hep B Core 8:00 AM) IgM) [facility]PfxjspjQYQOVGCUFM9181-39-60 14:00:00 Test Item Value Reference Range Interpretation Comments Hep C Ab (test code = Negative *NA*(07/26/16 Hep C Ab) 8:00 AM) [facility]AswuwauVXRFXQLMBR5277-11-74 14:00:00 Test Item Value Reference Range Interpretation Comments Hep Bs Ag (test code Negative *NA*(07/26/16 = Hep Bs Ag) 8:00 AM) [facility]2017-02-05 10:42:00 Test Item Value Reference Range Interpretation Comments B/C Ratio (test code = B/C Ratio) 17 6-25 [facility]2017-02-05 10:42:00 Test Item Value Reference Range Interpretation Comments ALT (test code = ALT) 1232 See_Comment [Auto mated message] The system which ge nerated this result transmit rohit reference range : <=65. The reference range was not used to interpr et this result as reji l/abnormal. [facility]2017-02-05 10:42:00 Test Item Value Reference Range Interpretation Comments A/G Ratio (test code = A/G Ratio) 0.5 0.7-1.6 [facility]2017-02-05 10:42:00 Test Item Value Reference Range Interpretation Comments Bili Total (test code = Bili Total) 0.3 0.2-1.3 [facility]2017-02-05 10:42:00 Test Item Value Reference Range Interpretation Comments Alk Phos (test code = Alk Phos) 79 39-136 [facility]2017-02-05 10:42:00 Test Item Value Reference Range Interpretation Comments AST (test code = AST) 586 See_Comment [Auto mated message] The system which ge nerated this result transmit rohit reference range : <=37. The reference range was not used to interpr et this result as reji l/abnormal. [facility]2017-02-05 10:42:00 Test Item Value Reference Range Interpretation Comments Total Protein (test code = Total 5.5 6.4-8.4 Protein) [facility]2017-02-05 10:42:00 Test Item Value Reference Range Interpretation Comments Globulin (test code = Globulin) 3.7 2.7-4.2 [facility]2017-02-05 10:42:00 Test Item Value Reference Range Interpretation Comments Albumin Lvl (test code = Albumin Lvl) 1.8 3.5-5.0 [facility]2017-02-05 10:42:00 Test Item Value Reference Range Interpretation Comments Magnesium Lvl (test code = Magnesium 2.1 1.8-2.4 Lvl) [facility]anoHaioxmvKBLIIBLTYU1524-46-06 10:42:00 Test Item Value Reference Range Interpretation Comments Acanthocyte (test code = Acanthocyte) [facility]anoQzenboaFYRYVXWQSL8136-78-15 10:42:00 Test Item Value Reference Range Interpretation Comments Rouleaux (test code = Present *ABN*(07/26/16 Rouleaux) 4:42 AM) [facility]anoSooozzlEZHUZPBRVN4505-88-01 10:42:00 Test Item Value Reference Range Interpretation Comments Anisocyte (test code = 1+ *ABN*(07/26/16 4:42 Anisocyte) AM) [facility]anoPiuopjyIIFGEYNVIU8827-75-89 10:42:00 Test Item Value Reference Range Interpretation Comments Basophils # (test code 0.1 See_Comment [Aut omated message] The = Basophils #) system which generated this result tra nsmitted reference range : <=0.2. The reference r leo was not used to int erpret this result as normal/abnormal . [facility]anoFyjwqfwCUEVUIDNLA6415-29-02 10:42:00 Test Item Value Reference Range Interpretation Comments Large Plt (test code Moderate *ABN*(07/26/16 = Large Plt) 4:42 AM) [facility]XepyxiqOVUSRNQFJM1162-54-05 10:42:00 Test Item Value Reference Range Interpretation Comments C4 Complement (test code = C4 42 16-47 Complement) [facility]2017-02-05 10:42:00 Test Item Value Reference Range Interpretation Comments B/C Ratio (test code = B/C Ratio) 17 6-25 [facility]2017-02-05 10:42:00 Test Item Value Reference Range Interpretation Comments ALT (test code = ALT) 1232 See_Comment [Auto mated message] The system which ge nerated this result transmit rohit reference range : <=65. The reference range was not used to interpr et this result as reji l/abnormal. [facility]2017-02-05 10:42:00 Test Item Value Reference Range Interpretation Comments A/G Ratio (test code = A/G Ratio) 0.5 0.7-1.6 [facility]2017-02-05 10:42:00 Test Item Value Reference Range Interpretation Comments Bili Total (test code = Bili Total) 0.3 0.2-1.3 [facility]2017-02-05 10:42:00 Test Item Value Reference Range Interpretation Comments Alk Phos (test code = Alk Phos) 79 39-136 [facility]2017-02-05 10:42:00 Test Item Value Reference Range Interpretation Comments AST (test code = AST) 586 See_Comment [Auto mated message] The system which ge nerated this result transmit rohit reference range : <=37. The reference range was not used to interpr et this result as reji l/abnormal. [facility]2017-02-05 10:42:00 Test Item Value Reference Range Interpretation Comments Total Protein (test code = Total 5.5 6.4-8.4 Protein) [facility]2017-02-05 10:42:00 Test Item Value Reference Range Interpretation Comments Globulin (test code = Globulin) 3.7 2.7-4.2 [facility]2017-02-05 10:42:00 Test Item Value Reference Range Interpretation Comments Albumin Lvl (test code = Albumin Lvl) 1.8 3.5-5.0 [facility]2017-02-05 10:42:00 Test Item Value Reference Range Interpretation Comments Magnesium Lvl (test code = Magnesium 2.1 1.8-2.4 Lvl) [facility]anoGultvtaHOEXDEBJKP7580-41-56 10:42:00 Test Item Value Reference Range Interpretation Comments Acanthocyte (test code = Acanthocyte) [facility]anoDrddtjhVMSBJKKTUF6103-29-82 10:42:00 Test Item Value Reference Range Interpretation Comments Rouleaux (test code = Present *ABN*(07/26/16 Rouleaux) 4:42 AM) [facility]anoTlhejzsYNTIUZSXGJ1093-24-88 10:42:00 Test Item Value Reference Range Interpretation Comments Anisocyte (test code = 1+ *ABN*(07/26/16 4:42 Anisocyte) AM) [facility]anoRavnyvvWGDDRSBZDJ9059-01-03 10:42:00 Test Item Value Reference Range Interpretation Comments Basophils # (test code 0.1 See_Comment [Aut omated message] The = Basophils #) system which generated this result tra nsmitted reference range : <=0.2. The reference r leo was not used to int erpret this result as normal/abnormal . [facility]anoPeximdoAAYAWWOWHN2191-81-11 10:42:00 Test Item Value Reference Range Interpretation Comments Large Plt (test code Moderate *ABN*(07/26/16 = Large Plt) 4:42 AM) [facility]LlwghooDHBNHYUYQA6963-35-64 10:42:00 Test Item Value Reference Range Interpretation Comments C4 Complement (test code = C4 42 16-47 Complement) [facility]2017-02-05 10:42:00 Test Item Value Reference Range Interpretation Comments B/C Ratio (test code = B/C Ratio) 17 6-25 [facility]2017-02-05 10:42:00 Test Item Value Reference Range Interpretation Comments ALT (test code = ALT) 1232 See_Comment [Auto mated message] The system which ge nerated this result transmit rohit reference range : <=65. The reference range was not used to interpr et this result as reji l/abnormal. [facility]2017-02-05 10:42:00 Test Item Value Reference Range Interpretation Comments A/G Ratio (test code = A/G Ratio) 0.5 0.7-1.6 [facility]2017-02-05 10:42:00 Test Item Value Reference Range Interpretation Comments Bili Total (test code = Bili Total) 0.3 0.2-1.3 [facility]2017-02-05 10:42:00 Test Item Value Reference Range Interpretation Comments Alk Phos (test code = Alk Phos) 79 39-136 [facility]2017-02-05 10:42:00 Test Item Value Reference Range Interpretation Comments AST (test code = AST) 586 See_Comment [Auto mated message] The system which ge nerated this result transmit rohit reference range : <=37. The reference range was not used to interpr et this result as reji l/abnormal. [facility]2017-02-05 10:42:00 Test Item Value Reference Range Interpretation Comments Total Protein (test code = Total 5.5 6.4-8.4 Protein) [facility]2017-02-05 10:42:00 Test Item Value Reference Range Interpretation Comments Globulin (test code = Globulin) 3.7 2.7-4.2 [facility]2017-02-05 10:42:00 Test Item Value Reference Range Interpretation Comments Albumin Lvl (test code = Albumin Lvl) 1.8 3.5-5.0 [facility]2017-02-05 10:42:00 Test Item Value Reference Range Interpretation Comments Magnesium Lvl (test code = Magnesium 2.1 1.8-2.4 Lvl) [facility]anoHktbpkpKRGZCXBFCX4619-36-62 10:42:00 Test Item Value Reference Range Interpretation Comments Acanthocyte (test code = Acanthocyte) [facility]anoQfibamvHFUWDZAJYG8500-72-07 10:42:00 Test Item Value Reference Range Interpretation Comments Rouleaux (test code = Present *ABN*(07/26/16 Rouleaux) 4:42 AM) [facility]anoVthouheNOADEFRCAE3198-91-06 10:42:00 Test Item Value Reference Range Interpretation Comments Anisocyte (test code = 1+ *ABN*(07/26/16 4:42 Anisocyte) AM) [facility]anoIlidahmVCZJKNWSPT2216-08-53 10:42:00 Test Item Value Reference Range Interpretation Comments Basophils # (test code 0.1 See_Comment [Aut omated message] The = Basophils #) system which generated this result tra nsmitted reference range : <=0.2. The reference r leo was not used to int erpret this result as normal/abnormal . [id number]00 Test Item Value Reference Range Interpretation Comments Large Plt (test code Moderate *ABN*(07/26/16 = Large Plt) 4:42 AM) [facility]LIEUMFF2258-75-63 10:42:00 Test Item Value Reference Range Interpretation Comments C4 Complement (test code = C4 42 16-47 Complement) [facility]2017-02-05 10:42:00 Test Item Value Reference Range Interpretation Comments B/C Ratio (test code = B/C Ratio) 17 6-25 [facility]2017-02-05 10:42:00 Test Item Value Reference Range Interpretation Comments ALT (test code = ALT) 1232 See_Comment [Auto mated message] The system which ge nerated this result transmit rohit reference range : <=65. The reference range was not used to interpr et this result as reji l/abnormal. [facility]2017-02-05 10:42:00 Test Item Value Reference Range Interpretation Comments A/G Ratio (test code = A/G Ratio) 0.5 0.7-1.6 [facility]2017-02-05 10:42:00 Test Item Value Reference Range Interpretation Comments Bili Total (test code = Bili Total) 0.3 0.2-1.3 [facility]2017-02-05 10:42:00 Test Item Value Reference Range Interpretation Comments Alk Phos (test code = Alk Phos) 79 39-136 [facility]2017-02-05 10:42:00 Test Item Value Reference Range Interpretation Comments AST (test code = AST) 586 See_Comment [Auto mated message] The system which ge nerated this result transmit rohit reference range : <=37. The reference range was not used to interpr et this result as reji l/abnormal. [facility]2017-02-05 10:42:00 Test Item Value Reference Range Interpretation Comments Total Protein (test code = Total 5.5 6.4-8.4 Protein) [facility]2017-02-05 10:42:00 Test Item Value Reference Range Interpretation Comments Globulin (test code = Globulin) 3.7 2.7-4.2 [facility]2017-02-05 10:42:00 Test Item Value Reference Range Interpretation Comments Albumin Lvl (test code = Albumin Lvl) 1.8 3.5-5.0 [facility]2017-02-05 10:42:00 Test Item Value Reference Range Interpretation Comments Magnesium Lvl (test code = Magnesium 2.1 1.8-2.4 Lvl) [facility] 10:42:00 Test Item Value Reference Range Interpretation Comments Acanthocyte (test code = Acanthocyte) [facility]KdezhbpIVCNTYPUOW3817-52-20 10:42:00 Test Item Value Reference Range Interpretation Comments Rouleaux (test code = Present *ABN*(07/26/16 Rouleaux) 4:42 AM) [facility]VzajxhiYIKKIVUOVA5806-40-77 10:42:00 Test Item Value Reference Range Interpretation Comments Anisocyte (test code = 1+ *ABN*(07/26/16 4:42 Anisocyte) AM) [facility]TwspnqbAFYHTKWANB1577-09-13 10:42:00 Test Item Value Reference Range Interpretation Comments Basophils # (test code 0.1 See_Comment [Aut omated message] The = Basophils #) system which generated this result tra nsmitted reference range : <=0.2. The reference r leo was not used to int erpret this result as normal/abnormal . [id number] 10:42:00 Test Item Value Reference Range Interpretation Comments Large Plt (test code Moderate *ABN*(07/26/16 = Large Plt) 4:42 AM) [facility]thipaHBYTUSEZXL0831-43-65 10:42:00 Test Item Value Reference Range Interpretation Comments C4 Complement (test code = C4 42 16-47 Complement) [facility]2017-02-05 10:42:00 Test Item Value Reference Range Interpretation Comments B/C Ratio (test code = B/C Ratio) 17 6-25 [facility]2017-02-05 10:42:00 Test Item Value Reference Range Interpretation Comments ALT (test code = ALT) 1232 See_Comment [Auto mated message] The system which ge nerated this result transmit rohit reference range : <=65. The reference range was not used to interpr et this result as reji l/abnormal. [facility]2017-02-05 10:42:00 Test Item Value Reference Range Interpretation Comments A/G Ratio (test code = A/G Ratio) 0.5 0.7-1.6 [facility]2017-02-05 10:42:00 Test Item Value Reference Range Interpretation Comments Bili Total (test code = Bili Total) 0.3 0.2-1.3 [facility]2017-02-05 10:42:00 Test Item Value Reference Range Interpretation Comments Alk Phos (test code = Alk Phos) 79 39-136 [facility]2017-02-05 10:42:00 Test Item Value Reference Range Interpretation Comments AST (test code = AST) 586 See_Comment [Auto mated message] The system which ge nerated this result transmit rohit reference range : <=37. The reference range was not used to interpr et this result as reji l/abnormal. [facility]2017-02-05 10:42:00 Test Item Value Reference Range Interpretation Comments Total Protein (test code = Total 5.5 6.4-8.4 Protein) [facility]2017-02-05 10:42:00 Test Item Value Reference Range Interpretation Comments Globulin (test code = Globulin) 3.7 2.7-4.2 [facility]2017-02-05 10:42:00 Test Item Value Reference Range Interpretation Comments Albumin Lvl (test code = Albumin Lvl) 1.8 3.5-5.0 [facility]2017-02-05 10:42:00 Test Item Value Reference Range Interpretation Comments Magnesium Lvl (test code = Magnesium 2.1 1.8-2.4 Lvl) [facility]OwwxlqwHGBFYKQXBB1724-35-57 10:42:00 Test Item Value Reference Range Interpretation Comments Acanthocyte (test code = Acanthocyte) [facility]anoLfkmmntSRTIPFSGFV6506-96-28 10:42:00 Test Item Value Reference Range Interpretation Comments Rouleaux (test code = Present *ABN*(07/26/16 Rouleaux) 4:42 AM) [facility]PgxpcjmBOKDELPSCQ8473-07-66 10:42:00 Test Item Value Reference Range Interpretation Comments Anisocyte (test code = 1+ *ABN*(07/26/16 4:42 Anisocyte) AM) [facility]anoDkgyphcYYNUHEEBKE5302-64-42 10:42:00 Test Item Value Reference Range Interpretation Comments Basophils # (test code 0.1 See_Comment [Aut omated message] The = Basophils #) system which generated this result tra nsmitted reference range : <=0.2. The reference r leo was not used to int erpret this result as normal/abnormal . [facility]anoPgrbejoBAACHDOUXS6948-46-99 10:42:00 Test Item Value Reference Range Interpretation Comments Large Plt (test code Moderate *ABN*(07/26/16 = Large Plt) 4:42 AM) [facility]xhuhjmZPTUKPILKR2272-71-95 10:42:00 Test Item Value Reference Range Interpretation Comments C4 Complement (test code = C4 42 16-47 Complement) [facility] AND [id number] 16:34:00 Test Item Value Reference Range Interpretation Comments UA Sq Epi (test code = UA Sq Epi) None Seen [facility] AND [id number] 16:34:00 Test Item Value Reference Range Interpretation Comments UA Waxy Cast (test code = UA Waxy Cast) 1 [facility] AND [id number] 16:34:00 Test Item Value Reference Range Interpretation Comments UA Hyal Cast (test 4 See_Comment [Automat ed message] The code = UA Hyal Cast) system which generated this result transmit rohit reference range : <=2. The reference range was not used to interpr et this result as reji l/abnormal. [facility] AND [id number] 16:34:00 Test Item Value Reference Range Interpretation Comments UA Bacteria (test code = UA Occasional /HPF Bacteria) [facility] AND [id number] 16:34:00 Test Item Value Reference Range Interpretation Comments UA Mucus (test code = UA Mucus) Few /LPF [facility] AND [id number] 16:34:00 Test Item Value Reference Range Interpretation Comments UA Amorph Destiny (test code = Occasional /HPF UA Amorph Destiny) [facility] AND [id number] 16:34:00 Test Item Value Reference Range Interpretation Comments UA Leuk Est (test Negative (07/25/16 10:34 code = UA Leuk Est) AM) [facility] AND [id number] 16:34:00 Test Item Value Reference Range Interpretation Comments UA Nitrite (test code Negative (07/25/16 10:34 = UA Nitrite) AM) [facility] AND [id number] 16:34:00 Test Item Value Reference Range Interpretation Comments UA RBC (test code = 2 See_Comment [Automa rohit message] The UA RBC) system which ge nerated this result transmit rohit reference range : <=2. The reference range was not used to interpr et this result as reji l/abnormal. [facility] AND [id number] 16:34:00 Test Item Value Reference Range Interpretation Comments UA WBC (test code = 6 See_Comment [Automa rohit message] The UA WBC) system which ge nerated this result transmit rohit reference range : <=5. The reference range was not used to interpr et this result as reji l/abnormal. [facility] AND [id number] 16:34:00 Test Item Value Reference Range Interpretation Comments UA Urobilinogen (test code = UA 2.0 0.1-1.0 Urobilinogen) [facility] AND [id number] 16:34:00 Test Item Value Reference Range Interpretation Comments UA Ketones (test code = UA Negative mg/dL Ketones) [facility] AND [id number] 16:34:00 Test Item Value Reference Range Interpretation Comments UA Glucose (test code = UA Glucose) 70 mg/dL [facility] AND [id number] 16:34:00 Test Item Value Reference Range Interpretation Comments UA Blood (test code = Negative (07/25/16 10:34 UA Blood) AM) [facility] AND [id number] 16:34:00 Test Item Value Reference Range Interpretation Comments UA Bili (test code = Negative *NA*(07/25/16 UA Bili) 10:34 AM) [facility] AND [id number] 16:34:00 Test Item Value Reference Range Interpretation Comments UA Protein (test code = UA >=300 mg/dL Protein) [facility] AND [id number] 16:34:00 Test Item Value Reference Range Interpretation Comments UA Spec Grav (test code = UA Spec Grav) 1.012 [facility] AND [id number] 16:34:00 Test Item Value Reference Range Interpretation Comments UA pH (test code = UA pH) 5.5 5.0-8.0 [facility] AND [id number] 16:34:00 Test Item Value Reference Range Interpretation Comments UA Turbidity (test code Slight *ABN*(07/25/16 = UA Turbidity) 10:34 AM) [facility] AND [id number] 16:34:00 Test Item Value Reference Range Interpretation Comments UA Color (test code = Dark Yellow *NA*(07/25/16 UA Color) 10:34 AM) [facility] AND [id number] 16:34:00 Test Item Value Reference Range Interpretation Comments UA Gran Cast (test code = UA Gran Cast) 9 [facility]2017-02-04 16:34:00 Test Item Value Reference Range Interpretation Comments U Sodium (test code = U Sodium) 30 [facility]2017-02-04 16:34:00 Test Item Value Reference Range Interpretation Comments U Prot/Creat (test code = U Prot/Creat) 3.1 [facility]2017-02-04 16:34:00 Test Item Value Reference Range Interpretation Comments U Protein (test code = U Protein) 420.9 [facility]2017-02-04 16:34:00 Test Item Value Reference Range Interpretation Comments U Creatinine (test code = U 136.00 Creatinine) [facility] AND [id number] 16:34:00 Test Item Value Reference Range Interpretation Comments UA Sq Epi (test code = UA Sq Epi) None Seen [facility] AND [id number] 16:34:00 Test Item Value Reference Range Interpretation Comments UA Waxy Cast (test code = UA Waxy Cast) 1 [facility] AND [id number] 16:34:00 Test Item Value Reference Range Interpretation Comments UA Hyal Cast (test 4 See_Comment [Automat ed message] The code = UA Hyal Cast) system which generated this result transmit rohit reference range : <=2. The reference range was not used to interpr et this result as reji l/abnormal. [facility] AND [id number] 16:34:00 Test Item Value Reference Range Interpretation Comments UA Bacteria (test code = UA Occasional /HPF Bacteria) [facility] AND [id number] 16:34:00 Test Item Value Reference Range Interpretation Comments UA Mucus (test code = UA Mucus) Few /LPF [facility] AND [id number] 16:34:00 Test Item Value Reference Range Interpretation Comments UA Amorph Destiny (test code = Occasional /HPF UA Amorph Destiny) [facility] AND [id number] 16:34:00 Test Item Value Reference Range Interpretation Comments UA Leuk Est (test Negative (07/25/16 10:34 code = UA Leuk Est) AM) [facility] AND [id number] 16:34:00 Test Item Value Reference Range Interpretation Comments UA Nitrite (test code Negative (07/25/16 10:34 = UA Nitrite) AM) [facility] AND [id number] 16:34:00 Test Item Value Reference Range Interpretation Comments UA RBC (test code = 2 See_Comment [Automa rohit message] The UA RBC) system which ge nerated this result transmit rohit reference range : <=2. The reference range was not used to interpr et this result as reji l/abnormal. [facility] AND [id number] 16:34:00 Test Item Value Reference Range Interpretation Comments UA WBC (test code = 6 See_Comment [Automa rohit message] The UA WBC) system which ge nerated this result transmit rohit reference range : <=5. The reference range was not used to interpr et this result as reji l/abnormal. [facility] AND [id number] 16:34:00 Test Item Value Reference Range Interpretation Comments UA Urobilinogen (test code = UA 2.0 0.1-1.0 Urobilinogen) [facility] AND [id number] 16:34:00 Test Item Value Reference Range Interpretation Comments UA Ketones (test code = UA Negative mg/dL Ketones) [facility] AND [id number] 16:34:00 Test Item Value Reference Range Interpretation Comments UA Glucose (test code = UA Glucose) 70 mg/dL [facility] AND [id number] 16:34:00 Test Item Value Reference Range Interpretation Comments UA Blood (test code = Negative (07/25/16 10:34 UA Blood) AM) [facility] AND [id number] 16:34:00 Test Item Value Reference Range Interpretation Comments UA Bili (test code = Negative *NA*(07/25/16 UA Bili) 10:34 AM) [facility] AND [id number] 16:34:00 Test Item Value Reference Range Interpretation Comments UA Protein (test code = UA >=300 mg/dL Protein) [facility] AND [id number] 16:34:00 Test Item Value Reference Range Interpretation Comments UA Spec Grav (test code = UA Spec Grav) 1.012 [facility] AND [id number] 16:34:00 Test Item Value Reference Range Interpretation Comments UA pH (test code = UA pH) 5.5 5.0-8.0 [facility] AND [id number] 16:34:00 Test Item Value Reference Range Interpretation Comments UA Turbidity (test code Slight *ABN*(07/25/16 = UA Turbidity) 10:34 AM) [facility] [id number] 16:34:00 Test Item Value Reference Range Interpretation Comments UA Color (test code = Dark Yellow *NA*(07/25/16 UA Color) 10:34 AM) [facility] AND [id number] 16:34:00 Test Item Value Reference Range Interpretation Comments UA Gran Cast (test code = UA Gran Cast) 9 [facility] [id number] 16:34:00 Test Item Value Reference Range Interpretation Comments U Sodium (test code = U Sodium) 30 [facility] [id number] 16:34:00 Test Item Value Reference Range Interpretation Comments U Prot/Creat (test code = U Prot/Creat) 3.1 [facility]2017-02-04 16:34:00 Test Item Value Reference Range Interpretation Comments U Protein (test code = U Protein) 420.9 [facility] [id number] 16:34:00 Test Item Value Reference Range Interpretation Comments U Creatinine (test code = U 136.00 Creatinine) [facility] AND [id number] 16:34:00 Test Item Value Reference Range Interpretation Comments UA Sq Epi (test code = UA Sq Epi) None Seen [facility] AND [id number] 16:34:00 Test Item Value Reference Range Interpretation Comments UA Waxy Cast (test code = UA Waxy Cast) 1 [facility] AND [id number] 16:34:00 Test Item Value Reference Range Interpretation Comments UA Hyal Cast (test 4 See_Comment [Automat ed message] The code = UA Hyal Cast) system which generated this result transmit rohit reference range : <=2. The reference range was not used to interpr et this result as reji l/abnormal. [facility] [id number] 16:34:00 Test Item Value Reference Range Interpretation Comments UA Bacteria (test code = UA Occasional /HPF Bacteria) [facility] AND [id number] 16:34:00 Test Item Value Reference Range Interpretation Comments UA Mucus (test code = UA Mucus) Few /LPF [facility] AND [id number] 16:34:00 Test Item Value Reference Range Interpretation Comments UA Amorph Destiny (test code = Occasional /HPF UA Amorph Destiny) [facility] AND [id number] 16:34:00 Test Item Value Reference Range Interpretation Comments UA Leuk Est (test Negative (07/25/16 10:34 code = UA Leuk Est) AM) [facility] AND [id number] 16:34:00 Test Item Value Reference Range Interpretation Comments UA Nitrite (test code Negative (07/25/16 10:34 = UA Nitrite) AM) [facility] AND [id number] 16:34:00 Test Item Value Reference Range Interpretation Comments UA RBC (test code = 2 See_Comment [Automa rohit message] The UA RBC) system which ge nerated this result transmit rohit reference range : <=2. The reference range was not used to interpr et this result as reji l/abnormal. [facility] AND [id number] 16:34:00 Test Item Value Reference Range Interpretation Comments UA WBC (test code = 6 See_Comment [Automa rohit message] The UA WBC) system which ge nerated this result transmit rohit reference range : <=5. The reference range was not used to interpr et this result as reji l/abnormal. [facility] AND [id number] 16:34:00 Test Item Value Reference Range Interpretation Comments UA Urobilinogen (test code = UA 2.0 0.1-1.0 Urobilinogen) [facility] AND [id number] 16:34:00 Test Item Value Reference Range Interpretation Comments UA Ketones (test code = UA Negative mg/dL Ketones) [facility] AND [id number] 16:34:00 Test Item Value Reference Range Interpretation Comments UA Glucose (test code = UA Glucose) 70 mg/dL [facility] AND [id number] 16:34:00 Test Item Value Reference Range Interpretation Comments UA Blood (test code = Negative (07/25/16 10:34 UA Blood) AM) [facility] AND [id number] 16:34:00 Test Item Value Reference Range Interpretation Comments UA Bili (test code = Negative *NA*(07/25/16 UA Bili) 10:34 AM) [facility] AND [id number] 16:34:00 Test Item Value Reference Range Interpretation Comments UA Protein (test code = UA >=300 mg/dL Protein) [facility] AND [id number] 16:34:00 Test Item Value Reference Range Interpretation Comments UA Spec Grav (test code = UA Spec Grav) 1.012 [facility] AND [id number] 16:34:00 Test Item Value Reference Range Interpretation Comments UA pH (test code = UA pH) 5.5 5.0-8.0 [facility] AND [id number] 16:34:00 Test Item Value Reference Range Interpretation Comments UA Turbidity (test code Slight *ABN*(07/25/16 = UA Turbidity) 10:34 AM) [facility] AND [id number] 16:34:00 Test Item Value Reference Range Interpretation Comments UA Color (test code = Dark Yellow *NA*(07/25/16 UA Color) 10:34 AM) [facility] AND [id number] 16:34:00 Test Item Value Reference Range Interpretation Comments UA Gran Cast (test code = UA Gran Cast) 9 [facility]2017-02-04 16:34:00 Test Item Value Reference Range Interpretation Comments U Sodium (test code = U Sodium) 30 [facility] [id number] 16:34:00 Test Item Value Reference Range Interpretation Comments U Prot/Creat (test code = U Prot/Creat) 3.1 [facility] [id number] 16:34:00 Test Item Value Reference Range Interpretation Comments U Protein (test code = U Protein) 420.9 [facility] [id number] 16:34:00 Test Item Value Reference Range Interpretation Comments U Creatinine (test code = U 136.00 Creatinine) [facility] AND [id number] 16:34:00 Test Item Value Reference Range Interpretation Comments UA Sq Epi (test code = UA Sq Epi) None Seen [facility] AND [id number] 16:34:00 Test Item Value Reference Range Interpretation Comments UA Waxy Cast (test code = UA Waxy Cast) 1 [facility] AND [id number] 16:34:00 Test Item Value Reference Range Interpretation Comments UA Hyal Cast (test 4 See_Comment [Automat ed message] The code = UA Hyal Cast) system which generated this result transmit rohit reference range : <=2. The reference range was not used to interpr et this result as reji l/abnormal. [facility] AND [id number] 16:34:00 Test Item Value Reference Range Interpretation Comments UA Bacteria (test code = UA Occasional /HPF Bacteria) [facility] AND [id number] 16:34:00 Test Item Value Reference Range Interpretation Comments UA Mucus (test code = UA Mucus) Few /LPF [facility] AND [id number] 16:34:00 Test Item Value Reference Range Interpretation Comments UA Amorph Destiny (test code = Occasional /HPF UA Amorph Destiny) [facility] AND [id number] 16:34:00 Test Item Value Reference Range Interpretation Comments UA Leuk Est (test Negative (07/25/16 10:34 code = UA Leuk Est) AM) [facility] AND [id number] 16:34:00 Test Item Value Reference Range Interpretation Comments UA Nitrite (test code Negative (07/25/16 10:34 = UA Nitrite) AM) [facility] AND [id number] 16:34:00 Test Item Value Reference Range Interpretation Comments UA RBC (test code = 2 See_Comment [Automa rohit message] The UA RBC) system which ge nerated this result transmit rohit reference range : <=2. The reference range was not used to interpr et this result as reji l/abnormal. [facility] AND [id number] 16:34:00 Test Item Value Reference Range Interpretation Comments UA WBC (test code = 6 See_Comment [Automa rohit message] The UA WBC) system which ge nerated this result transmit rohit reference range : <=5. The reference range was not used to interpr et this result as reji l/abnormal. [facility] AND [id number] 16:34:00 Test Item Value Reference Range Interpretation Comments UA Urobilinogen (test code = UA 2.0 0.1-1.0 Urobilinogen) [facility] AND [id number] 16:34:00 Test Item Value Reference Range Interpretation Comments UA Ketones (test code = UA Negative mg/dL Ketones) [facility] AND [id number] 16:34:00 Test Item Value Reference Range Interpretation Comments UA Glucose (test code = UA Glucose) 70 mg/dL [facility] AND [id number] 16:34:00 Test Item Value Reference Range Interpretation Comments UA Blood (test code = Negative (07/25/16 10:34 UA Blood) AM) [facility] AND [id number] 16:34:00 Test Item Value Reference Range Interpretation Comments UA Bili (test code = Negative *NA*(07/25/16 UA Bili) 10:34 AM) [facility] AND [id number] 16:34:00 Test Item Value Reference Range Interpretation Comments UA Protein (test code = UA >=300 mg/dL Protein) [facility] AND [id number] 16:34:00 Test Item Value Reference Range Interpretation Comments UA Spec Grav (test code = UA Spec Grav) 1.012 [facility] AND [id number] 16:34:00 Test Item Value Reference Range Interpretation Comments UA pH (test code = UA pH) 5.5 5.0-8.0 [facility] AND [id number] 16:34:00 Test Item Value Reference Range Interpretation Comments UA Turbidity (test code Slight *ABN*(07/25/16 = UA Turbidity) 10:34 AM) [facility] AND [id number] 16:34:00 Test Item Value Reference Range Interpretation Comments UA Color (test code = Dark Yellow *NA*(07/25/16 UA Color) 10:34 AM) [facility] AND [id number] 16:34:00 Test Item Value Reference Range Interpretation Comments UA Gran Cast (test code = UA Gran Cast) 9 [facility] [id number] 16:34:00 Test Item Value Reference Range Interpretation Comments U Sodium (test code = U Sodium) 30 [facility] [id number] 16:34:00 Test Item Value Reference Range Interpretation Comments U Prot/Creat (test code = U Prot/Creat) 3.1 [facility] [id number] 16:34:00 Test Item Value Reference Range Interpretation Comments U Protein (test code = U Protein) 420.9 [facility] [id number] 16:34:00 Test Item Value Reference Range Interpretation Comments U Creatinine (test code = U 136.00 Creatinine) [facility] AND [id number] 16:34:00 Test Item Value Reference Range Interpretation Comments UA Sq Epi (test code = UA Sq Epi) None Seen [facility] AND [id number] 16:34:00 Test Item Value Reference Range Interpretation Comments UA Waxy Cast (test code = UA Waxy Cast) 1 [facility] AND [id number] 16:34:00 Test Item Value Reference Range Interpretation Comments UA Hyal Cast (test 4 See_Comment [Automat ed message] The code = UA Hyal Cast) system which generated this result transmit rohit reference range : <=2. The reference range was not used to interpr et this result as reji l/abnormal. [facility] AND [id number] 16:34:00 Test Item Value Reference Range Interpretation Comments UA Bacteria (test code = UA Occasional /HPF Bacteria) [facility] AND [id number] 16:34:00 Test Item Value Reference Range Interpretation Comments UA Mucus (test code = UA Mucus) Few /LPF [facility] AND [id number] 16:34:00 Test Item Value Reference Range Interpretation Comments UA Amorph Destiny (test code = Occasional /HPF UA Amorph Destiny) [facility] AND [id number] 16:34:00 Test Item Value Reference Range Interpretation Comments UA Leuk Est (test Negative (07/25/16 10:34 code = UA Leuk Est) AM) [facility] AND [id number] 16:34:00 Test Item Value Reference Range Interpretation Comments UA Nitrite (test code Negative (07/25/16 10:34 = UA Nitrite) AM) [facility] AND [id number] 16:34:00 Test Item Value Reference Range Interpretation Comments UA RBC (test code = 2 See_Comment [Automa rohit message] The UA RBC) system which ge nerated this result transmit rohit reference range : <=2. The reference range was not used to interpr et this result as reji l/abnormal. [facility] AND [id number] 16:34:00 Test Item Value Reference Range Interpretation Comments UA WBC (test code = 6 See_Comment [Automa rohit message] The UA WBC) system which ge nerated this result transmit rohit reference range : <=5. The reference range was not used to interpr et this result as reji l/abnormal. [facility] AND [id number] 16:34:00 Test Item Value Reference Range Interpretation Comments UA Urobilinogen (test code = UA 2.0 0.1-1.0 Urobilinogen) [facility] AND [id number] 16:34:00 Test Item Value Reference Range Interpretation Comments UA Ketones (test code = UA Negative mg/dL Ketones) [facility] AND [id number] 16:34:00 Test Item Value Reference Range Interpretation Comments UA Glucose (test code = UA Glucose) 70 mg/dL [facility] AND [id number] 16:34:00 Test Item Value Reference Range Interpretation Comments UA Blood (test code = Negative (07/25/16 10:34 UA Blood) AM) [facility] AND [id number] 16:34:00 Test Item Value Reference Range Interpretation Comments UA Bili (test code = Negative *NA*(07/25/16 UA Bili) 10:34 AM) [facility] AND [id number] 16:34:00 Test Item Value Reference Range Interpretation Comments UA Protein (test code = UA >=300 mg/dL Protein) [facility] AND [id number] 16:34:00 Test Item Value Reference Range Interpretation Comments UA Spec Grav (test code = UA Spec Grav) 1.012 [facility] AND [id number] 16:34:00 Test Item Value Reference Range Interpretation Comments UA pH (test code = UA pH) 5.5 5.0-8.0 [facility] AND [id number] 16:34:00 Test Item Value Reference Range Interpretation Comments UA Turbidity (test code Slight *ABN*(07/25/16 = UA Turbidity) 10:34 AM) [facility] AND [id number] 16:34:00 Test Item Value Reference Range Interpretation Comments UA Color (test code = Dark Yellow *NA*(07/25/16 UA Color) 10:34 AM) [facility] AND [id number] 16:34:00 Test Item Value Reference Range Interpretation Comments UA Gran Cast (test code = UA Gran Cast) 9 [facility] [id number] 16:34:00 Test Item Value Reference Range Interpretation Comments U Sodium (test code = U Sodium) 30 [facility]2017-02-04 16:34:00 Test Item Value Reference Range Interpretation Comments U Prot/Creat (test code = U Prot/Creat) 3.1 [facility]2017-02-04 16:34:00 Test Item Value Reference Range Interpretation Comments U Protein (test code = U Protein) 420.9 [facility]2017-02-04 16:34:00 Test Item Value Reference Range Interpretation Comments U Creatinine (test code = U 136.00 Creatinine) [facility]2017-02-04 08:55:00 Test Item Value Reference Range Interpretation Comments Magnesium Lvl (test code = Magnesium 2.0 1.8-2.4 Lvl) [facility]2017-02-04 08:55:00 Test Item Value Reference Range Interpretation Comments Phosphorus (test code = Phosphorus) 5.2 2.5-4.5 [facility]2017-02-04 08:55:00 Test Item Value Reference Range Interpretation Comments Magnesium Lvl (test code = Magnesium 2.0 1.8-2.4 Lvl) [facility]2017-02-04 08:55:00 Test Item Value Reference Range Interpretation Comments Phosphorus (test code = Phosphorus) 5.2 2.5-4.5 [facility]2017-02-04 08:55:00 Test Item Value Reference Range Interpretation Comments Magnesium Lvl (test code = Magnesium 2.0 1.8-2.4 Lvl) [facility]2017-02-04 08:55:00 Test Item Value Reference Range Interpretation Comments Phosphorus (test code = Phosphorus) 5.2 2.5-4.5 [facility]2017-02-04 08:55:00 Test Item Value Reference Range Interpretation Comments Magnesium Lvl (test code = Magnesium 2.0 1.8-2.4 Lvl) [facility]2017-02-04 08:55:00 Test Item Value Reference Range Interpretation Comments Phosphorus (test code = Phosphorus) 5.2 2.5-4.5 [facility] [id number] 08:55:00 Test Item Value Reference Range Interpretation Comments Magnesium Lvl (test code = Magnesium 2.0 1.8-2.4 Lvl) [facility] [id number] 08:55:00 Test Item Value Reference Range Interpretation Comments Phosphorus (test code = Phosphorus) 5.2 2.5-4.5 [facility] [id number] 17:29:00 Test Item Value Reference Range Interpretation Comments CK MB (test code = CK MB) 6.3 0.5-3.6 [facility] [id number] 17:29:00 Test Item Value Reference Range Interpretation Comments Troponin-I (test code 0.28 See_Comment [Auto mated message] The = Troponin-I) system which g enerated this result transmit rohit reference range : <=0.40. The reference r leo was not used to interpr et this result as reji l/abnormal. [facility] Station[facility] [id number] 17:29:00 Test Item Value Reference Range Interpretation Comments Total CK (test code = Total CK) 2616 12-191 [facility] [id number] 17:29:00 Test Item Value Reference Range Interpretation Comments Troponin-T (test code 0.144 See_Comment [Auto mated message] The = Troponin-T) system which g enerated this result transmit rohit reference range : <=0.100. The reference r leo was not used to interpr et this result as reji l/abnormal. [facility] Station[facility]2017-02-03 17:29:00 Test Item Value Reference Range Interpretation Comments CK MB Index (test 0.2 See_Comment [Automate d message] The code = CK MB Index) system w [facility] generated this result transmit rohit reference range : <=2.5. The reference range was not used to interpr et this result as reji l/abnormal. [facility] [employer]2017-02-03 17:29:00 Test Item Value Reference Range Interpretation Comments CK MB (test code = CK MB) 6.3 0.5-3.6 [facility] [employer]2017-02-03 17:29:00 Test Item Value Reference Range Interpretation Comments Troponin-I (test code 0.28 See_Comment [Auto mated message] The = Troponin-I) system which g enerated this result transmit rohit reference range : <=0.40. The reference r leo was not used to interpr et this result as reji l/abnormal. [facility] Station[facility]2017-02-03 17:29:00 Test Item Value Reference Range Interpretation Comments Total CK (test code = Total CK) 2615191 [facility] StationForwardMetrics [id number] 17:29:00 Test Item Value Reference Range Interpretation Comments Troponin-T (test code 0.144 See_Comment [Auto mated message] The = Troponin-T) system which g enerated this result transmit rohit reference range : <=0.100. The reference r leo was not used to interpr et this result as reji l/abnormal. [facility] Station[facility]2017-02-03 17:29:00 Test Item Value Reference Range Interpretation Comments CK MB Index (test 0.2 See_Comment [Automate d message] The code = CK MB Index) system w [facility] generated this result transmit rohit reference range : <=2.5. The reference range was not used to interpr et this result as reji l/abnormal. [facility] [employer]2017-02-03 17:29:00 Test Item Value Reference Range Interpretation Comments CK MB (test code = CK MB) 6.3 0.5-3.6 [facility] Station[facility]2017-02-03 17:29:00 Test Item Value Reference Range Interpretation Comments Troponin-I (test code 0.28 See_Comment [Auto mated message] The = Troponin-I) system which g enerated this result transmit rohit reference range : <=0.40. The reference r leo was not used to interpr et this result as reji l/abnormal. [facility] [employer]2017-02-03 17:29:00 Test Item Value Reference Range Interpretation Comments Total CK (test code = Total CK) 261191 [facility] [employer]2017-02-03 17:29:00 Test Item Value Reference Range Interpretation Comments Troponin-T (test code 0.144 See_Comment [Auto mated message] The = Troponin-T) system which g enerated this result transmit rohit reference range : <=0.100. The reference r leo was not used to interpr et this result as reji l/abnormal. [facility] [employer]2017-02-03 17:29:00 Test Item Value Reference Range Interpretation Comments CK MB Index (test 0.2 See_Comment [Automate d message] The code = CK MB Index) system w [facility] generated this result transmit rohit reference range : <=2.5. The reference range was not used to interpr et this result as reji l/abnormal. [facility] [employer]ED[employer]AC [id number] 17:29:00 Test Item Value Reference Range Interpretation Comments CK MB (test code = CK MB) 6.3 0.5-3.6 [facility] [employer]2017-02-03 17:29:00 Test Item Value Reference Range Interpretation Comments Troponin-I (test code 0.28 See_Comment [Auto mated message] The = Troponin-I) system which g enerated this result transmit rohit reference range : <=0.40. The reference r leo was not used to interpr et this result as reji l/abnormal. [facility] [employer]2017-02-03 17:29:00 Test Item Value Reference Range Interpretation Comments Total CK (test code = Total CK) 2616 12-191 [facility] [employer]2017-02-03 17:29:00 Test Item Value Reference Range Interpretation Comments Troponin-T (test code 0.144 See_Comment [Auto mated message] The = Troponin-T) system which g enerated this result transmit rohit reference range : <=0.100. The reference r leo was not used to interpr et this result as reji l/abnormal. [facility] WhoisEDIAC [id number] 17:29:00 Test Item Value Reference Range Interpretation Comments CK MB Index (test 0.2 See_Comment [Automate d message] The code = CK MB Index) system w [facility] generated this result transmit rohit reference range : <=2.5. The reference range was not used to interpr et this result as reji l/abnormal. [employer]2017-02-03 17:29:00 Test Item Value Reference Range Interpretation Comments CK MB (test code = CK MB) 6.3 0.5-3.6 [facility] StationnaeemW[facility] [id number] 17:29:00 Test Item Value Reference Range Interpretation Comments Troponin-I (test code 0.28 See_Comment [Auto mated message] The = Troponin-I) system which g enerated this result transmit rohit reference range : <=0.40. The reference r leo was not used to interpr et this result as reji l/abnormal. [facility] StationnaeemChamson GroupR[facility] [id number] 17:29:00 Test Item Value Reference Range Interpretation Comments Total CK (test code = Total CK) 2616 12-191 [facility] StationnaeemTrunqShow [id number] 17:29:00 Test Item Value Reference Range Interpretation Comments Troponin-T (test code 0.144 See_Comment [Auto mated message] The = Troponin-T) system which g enerated this result transmit rohit reference range : <=0.100. The reference r leo was not used to interpr et this result as reji l/abnormal. [facility] [id number] 17:29:00 Test Item Value Reference Range Interpretation Comments CK MB Index (test 0.2 See_Comment [Automate d message] The code = CK MB Index) system w [facility] generated this result transmit rohit reference range : <=2.5. The reference range was not used to interpr et this result as reji l/abnormal. [facility] StationreMail2017-02-03 11:20:00 Test Item Value Reference Range Interpretation Comments Troponin-I (test code 0.38 See_Comment [Auto mated message] The = Troponin-I) system which g enerated this result transmit rohit reference range : <=0.40. The reference r leo was not used to interpr et this result as reji l/abnormal. [facility] StationreMail2017-02-03 11:20:00 Test Item Value Reference Range Interpretation Comments Troponin-T (test code 0.173 See_Comment [Auto mated message] The = Troponin-T) system which g enerated this result transmit rohit reference range : <=0.100. The reference r leo was not used to interpr et this result as reji l/abnormal. [facility] [employer]2017-02-03 11:20:00 Test Item Value Reference Range Interpretation Comments CK MB Index (test 0.2 See_Comment [Automate d message] The code = CK MB Index) system w [employer] generated this result transmit rohit reference range : <=2.5. The reference range was not used to interpr et this result as reji l/abnormal. [facility] [employer]2017-02-03 11:20:00 Test Item Value Reference Range Interpretation Comments CK MB (test code = CK MB) 5.6 0.5-3.6 [facility] [employer] [id number] 11:20:00 Test Item Value Reference Range Interpretation Comments Phosphorus (test code = Phosphorus) 5.5 2.5-4.5 [facility] [employer]2017-02-03 11:20:00 Test Item Value Reference Range Interpretation Comments Troponin-I (test code 0.38 See_Comment [Auto mated message] The = Troponin-I) system which g enerated this result transmit rohit reference range : <=0.40. The reference r leo was not used to interpr et this result as reji l/abnormal. [facility] [employer]2017-02-03 11:20:00 Test Item Value Reference Range Interpretation Comments Troponin-T (test code 0.173 See_Comment [Auto mated message] The = Troponin-T) system which g enerated this result transmit rohit reference range : <=0.100. The reference r leo was not used to interpr et this result as reji l/abnormal. [facility] [employer]2017-02-03 11:20:00 Test Item Value Reference Range Interpretation Comments CK MB Index (test 0.2 See_Comment [Automate d message] The code = CK MB Index) system w [employer] generated this result transmit rohit reference range : <=2.5. The reference range was not used to interpr et this result as reji l/abnormal. [facility] [employer]2017-02-03 11:20:00 Test Item Value Reference Range Interpretation Comments CK MB (test code = CK MB) 5.6 0.5-3.6 [facility] [employer] [id number] 11:20:00 Test Item Value Reference Range Interpretation Comments Phosphorus (test code = Phosphorus) 5.5 2.5-4.5 [facility] [employer]2017-02-03 11:20:00 Test Item Value Reference Range Interpretation Comments Troponin-I (test code 0.38 See_Comment [Auto mated message] The = Troponin-I) system which g enerated this result transmit rohit reference range : <=0.40. The reference r leo was not used to interpr et this result as reji l/abnormal. [facility] [employer]2017-02-03 11:20:00 Test Item Value Reference Range Interpretation Comments Troponin-T (test code 0.173 See_Comment [Auto mated message] The = Troponin-T) system which g enerated this result transmit rohit reference range : <=0.100. The reference r leo was not used to interpr et this result as reji l/abnormal. [facility] [employer]2017-02-03 11:20:00 Test Item Value Reference Range Interpretation Comments CK MB Index (test 0.2 See_Comment [Automate d message] The code = CK MB Index) system w [facility] generated this result transmit rohit reference range : <=2.5. The reference range was not used to interpr et this result as reji l/abnormal. [facility] [employer]2017-02-03 11:20:00 Test Item Value Reference Range Interpretation Comments CK MB (test code = CK MB) 5.6 0.5-3.6 [facility] Intuitive DesignsSELECT [facility] [id number] 11:20:00 Test Item Value Reference Range Interpretation Comments Phosphorus (test code = Phosphorus) 5.5 2.5-4.5 [facility] [employer]2017-02-03 11:20:00 Test Item Value Reference Range Interpretation Comments Troponin-I (test code 0.38 See_Comment [Auto mated message] The = Troponin-I) system which g enerated this result transmit rohit reference range : <=0.40. The reference r leo was not used to interpr et this result as reji l/abnormal. [facility] [employer]2017-02-03 11:20:00 Test Item Value Reference Range Interpretation Comments Troponin-T (test code 0.173 See_Comment [Auto mated message] The = Troponin-T) system which g enerated this result transmit rohit reference range : <=0.100. The reference r leo was not used to interpr et this result as reji l/abnormal. [facility] [employer]2017-02-03 11:20:00 Test Item Value Reference Range Interpretation Comments CK MB Index (test 0.2 See_Comment [Automate d message] The code = CK MB Index) system w [facility] generated this result transmit rohit reference range : <=2.5. The reference range was not used to interpr et this result as reji l/abnormal. [facility] [employer]isEDIAC [id number] 11:20:00 Test Item Value Reference Range Interpretation Comments CK MB (test code = CK MB) 5.6 0.5-3.6 [facility] [employer] [id number] 11:20:00 Test Item Value Reference Range Interpretation Comments Phosphorus (test code = Phosphorus) 5.5 2.5-4.5 [facility] [employer]2017-02-03 11:20:00 Test Item Value Reference Range Interpretation Comments Troponin-I (test code 0.38 See_Comment [Auto mated message] The = Troponin-I) system which g enerated this result transmit rohit reference range : <=0.40. The reference r leo was not used to interpr et this result as reji l/abnormal. [facility] [employer]2017-02-03 11:20:00 Test Item Value Reference Range Interpretation Comments Troponin-T (test code 0.173 See_Comment [Auto mated message] The = Troponin-T) system which g enerated this result transmit rohit reference range : <=0.100. The reference r leo was not used to interpr et this result as reji l/abnormal. [facility] [employer]2017-02-03 11:20:00 Test Item Value Reference Range Interpretation Comments CK MB Index (test 0.2 See_Comment [Automate d message] The code = CK MB Index) system w [facility] generated this result transmit rohit reference range : <=2.5. The reference range was not used to interpr et this result as reji l/abnormal. [facility] [employer]2017-02-03 11:20:00 Test Item Value Reference Range Interpretation Comments CK MB (test code = CK MB) 5.6 0.5-3.6 [facility] [employer] AppsannCHEM [id number] 11:20:00 Test Item Value Reference Range Interpretation Comments Phosphorus (test code = Phosphorus) 5.5 2.5-4.5 [facility] [employer] AppsannCARDIAC [id number] 06:18:00 Test Item Value Reference Range Interpretation Comments BNP (test code = BNP) 701 [facility] [employer] AppsannCARDIAC [id number] 06:18:00 Test Item Value Reference Range Interpretation Comments BNP (test code = BNP) 701 [facility] [employer] AppsannCARDIAC [id number] 06:18:00 Test Item Value Reference Range Interpretation Comments BNP (test code = BNP) 701 [facility] Intuitive DesignsCARMeriTaleemAC [id number] 06:18:00 Test Item Value Reference Range Interpretation Comments BNP (test code = BNP) 701 [facility] [employer]uitive DesignsCARMeriTaleemAC [id number] 06:18:00 Test Item Value Reference Range Interpretation Comments BNP (test code = BNP) 701 [facility] [employer]ED[employer] [id number] 04:59:27 Test Item Value Reference Range Interpretation Comments Troponin-I (test code 0.57 See_Comment [Auto mated message] The = Troponin-I) system which g enerated this result transmit rohit reference range : <=0.40. The reference r leo was not used to interpr et this result as reji l/abnormal. [facility] [employer]2017-02-03 04:59:27 Test Item Value Reference Range Interpretation Comments Troponin-I (test code 0.57 See_Comment [Auto mated message] The = Troponin-I) system which g enerated this result transmit rohit reference range : <=0.40. The reference r leo was not used to interpr et this result as reji l/abnormal. [facility] [employer]2017-02-03 04:59:27 Test Item Value Reference Range Interpretation Comments Troponin-I (test code 0.57 See_Comment [Auto mated message] The = Troponin-I) system which g enerated this result transmit rohit reference range : <=0.40. The reference r leo was not used to interpr et this result as reji l/abnormal. [facility] [employer]2017-02-03 04:59:27 Test Item Value Reference Range Interpretation Comments Troponin-I (test code 0.57 See_Comment [Auto mated message] The = Troponin-I) system which g enerated this result transmit rohit reference range : <=0.40. The reference r leo was not used to interpr et this result as reji l/abnormal. [facility] [id number] 04:59:27 Test Item Value Reference Range Interpretation Comments Troponin-I (test code 0.57 See_Comment [Auto mated message] The = Troponin-I) system which g enerated this result transmit rohit reference range : <=0.40. The reference r leo was not used to interpr et this result as reji l/abnormal. [facility] [id number] 10:22:00 Test Item Value Reference Range Interpretation Comments BNP (test code = BNP) 526 [facility] [id number] 10:22:00 Test Item Value Reference Range Interpretation Comments Magnesium Lvl (test code = Magnesium 2.1 1.8-2.4 Lvl) [facility] [id number] 10:22:00 Test Item Value Reference Range Interpretation Comments Glucose Lvl (test code = Glucose Lvl) 117 70-99 [facility] [id number] 10:22:00 Test Item Value Reference Range Interpretation Comments BUN (test code = BUN) 41 7-22 [facility] [id number] 10:22:00 Test Item Value Reference Range Interpretation Comments Creatinine Lvl (test code = Creatinine 2.00 0.50-1.40 Lvl) [facility] [id number] 10:22:00 Test Item Value Reference Range Interpretation Comments Calcium Lvl (test code = Calcium Lvl) 9.0 8.5-10.5 [facility] [id number] 10:22:00 Test Item Value Reference Range Interpretation Comments Chloride Lvl (test code = Chloride Lvl) 102 95-109 [facility] [id number] 10:22:00 Test Item Value Reference Range Interpretation Comments CO2 (test code = CO2) 33 24-32 [facility] [id number] 10:22:00 Test Item Value Reference Range Interpretation Comments Sodium Lvl (test code = Sodium Lvl) 144 135-145 [facility]2016-12-26 10:22:00 Test Item Value Reference Range Interpretation Comments Potassium Lvl (test code = Potassium 4.0 3.5-5.1 Lvl) [facility]2016-12-26 10:22:00 Test Item Value Reference Range Interpretation Comments eGFR (test code = eGFR) 32 [facility]2016-12-26 10:22:00 Test Item Value Reference Range Interpretation Comments AGAP (test code = AGAP) 13.0 10.0-20.0 [facility]2016-12-26 10:22:00 Test Item Value Reference Range Interpretation Comments Phosphorus (test code = Phosphorus) 4.6 2.5-4.5 [facility]KtvzoadRTPQJZZHMN2091-[facility] 10:22:00 Test Item Value Reference Range Interpretation Comments RBC (test code = RBC) 3.68 4.20-5.40 [facility]anoQtlifbfYPOWXXFJUB2725-58-91 10:22:00 Test Item Value Reference Range Interpretation Comments Hgb (test code = Hgb) 9.9 12.0-16.0 [facility]anoJlrxhyiYQBJVXXEAQ4014-78-89 10:22:00 Test Item Value Reference Range Interpretation Comments MCH (test code = MCH) 26.8 pg 27.0-31.0 [facility]anoIpquzgyMRVQESFEVV7135-77-57 10:22:00 Test Item Value Reference Range Interpretation Comments MCHC (test code = MCHC) 34.2 32.0-36.0 [facility]anoUyhlhpcVFGXSNKWIE6869-46-67 10:22:00 Test Item Value Reference Range Interpretation Comments MCV (test code = MCV) 78.3 80.0-98.0 [facility]anoSckiwriXAKQLLRHMR1401-97-95 10:22:00 Test Item Value Reference Range Interpretation Comments Hct (test code = Hct) 28.8 36.0-48.0 [facility]anoJvswiqyMZILIXPTGK5764-75-18 10:22:00 Test Item Value Reference Range Interpretation Comments Platelet (test code = Platelet) 191 133-450 [facility]anoOpdjkoeMNJKKXPPDQ4184-54-78 10:22:00 Test Item Value Reference Range Interpretation Comments MPV (test code = MPV) 9.5 7.4-10.4 [facility]anoYbgkidrWJUCBTJKFE8414-34-19 10:22:00 Test Item Value Reference Range Interpretation Comments RDW (test code = RDW) 15.3 11.5-14.5 [facility]anoMpzvjmkYYGNFJSXYP9302-45-96 10:22:00 Test Item Value Reference Range Interpretation Comments WBC (test code = WBC) 5.6 3.7-10.4 [facility]anoQsjndfwDCIGJDHXBX2698-00-60 10:22:00 Test Item Value Reference Range Interpretation Comments Eosinophils # (test code 0.5 See_Comment [A utomated message] The = Eosinophils #) system whic h generated this result tra nsmitted reference range : <=0.5. The reference r leo was not used to int erpret this result as normal/abnormal . [facility] PlanoDskmeghKIDFMYDISR0254-87-17 10:22:00 Test Item Value Reference Range Interpretation Comments Microcyte (test code = 1+ *ABN*(06/15/16 Microcyte) 4:22 AM) [facility]anoWfwpijxYKZOMGOGLK2944-09-03 10:22:00 Test Item Value Reference Range Interpretation Comments Basophils # (test code 0.1 See_Comment [Aut omated message] The = Basophils #) system which generated this result tra nsmitted reference range : <=0.2. The reference r leo was not used to int erpret this result as normal/abnormal . [facility]anoHgmxgvoJIKTPFHBDY0128-83-19 10:22:00 Test Item Value Reference Range Interpretation Comments Lymphocytes (test code = Lymphocytes) 33.5 20.0-40.0 [facility]anoEfvhefpPPLTBUHBHG9127-29-61 10:22:00 Test Item Value Reference Range Interpretation Comments Segs (test code = Segs) 47.6 45.0-75.0 [facility] PlanoYoxkivwMIRCISHHZM2582-53-33 10:22:00 Test Item Value Reference Range Interpretation Comments Monocytes (test code = Monocytes) 8.4 2.0-12.0 [facility] PlanoCjkaikkPGZQUHYFIZ1360-50-48 10:22:00 Test Item Value Reference Range Interpretation Comments Eosinophils (test code = 9.4 See_Comment [A utomated message] The Eosinophils) system which ge nerated this result tra nsmitted reference range : <=4.0. The reference r leo was not used to int erpret this result as normal/abnormal . [facility]anoOwokfctWGXPCCQBTW0321-75-54 10:22:00 Test Item Value Reference Range Interpretation Comments Segs-Bands # (test code = Segs-Bands #) 2.6 1.5-8.1 [facility]tsleibWWJIDPWAUR6955-88-21 10:22:00 Test Item Value Reference Range Interpretation Comments Lymphocytes # (test code = Lymphocytes 1.9 1.0-5.5 #) [facility] HospitalPcsdlqgCATWXRMPFD6805-60-42 10:22:00 Test Item Value Reference Range Interpretation Comments Basophils (test code = 1.1 See_Comment [Aut omated message] The Basophils) system which ge nerated this result tra nsmitted reference range : <=1.0. The reference r leo was not used to int erpret this result as normal/abnormal . [facility] PlanoMoftvafTEQVCFNHUW5674-85-09 10:22:00 Test Item Value Reference Range Interpretation Comments Monocytes # (test code 0.5 See_Comment [Aut omated message] The = Monocytes #) system which generated this result tra nsmitted reference range : <=0.8. The reference r leo was not used to int erpret this result as normal/abnormal . [facility] [id number] 10:22:00 Test Item Value Reference Range Interpretation Comments BNP (test code = BNP) 526 [facility] [id number] 10:22:00 Test Item Value Reference Range Interpretation Comments Magnesium Lvl (test code = Magnesium 2.1 1.8-2.4 Lvl) [facility]2016-12-26 10:22:00 Test Item Value Reference Range Interpretation Comments Glucose Lvl (test code = Glucose Lvl) 117 70-99 [facility]2016-12-26 10:22:00 Test Item Value Reference Range Interpretation Comments BUN (test code = BUN) 41 7-22 [facility] [id number] 10:22:00 Test Item Value Reference Range Interpretation Comments Creatinine Lvl (test code = Creatinine 2.00 0.50-1.40 Lvl) [facility] [id number] 10:22:00 Test Item Value Reference Range Interpretation Comments Calcium Lvl (test code = Calcium Lvl) 9.0 8.5-10.5 [facility] [id number] 10:22:00 Test Item Value Reference Range Interpretation Comments Chloride Lvl (test code = Chloride Lvl) 102 95-109 [facility]2016-12-26 10:22:00 Test Item Value Reference Range Interpretation Comments CO2 (test code = CO2) 33 24-32 [facility]2016-12-26 10:22:00 Test Item Value Reference Range Interpretation Comments Sodium Lvl (test code = Sodium Lvl) 144 135-145 [facility]2016-12-26 10:22:00 Test Item Value Reference Range Interpretation Comments Potassium Lvl (test code = Potassium 4.0 3.5-5.1 Lvl) [facility]2016-12-26 10:22:00 Test Item Value Reference Range Interpretation Comments eGFR (test code = eGFR) 32 [facility]2016-12-26 10:22:00 Test Item Value Reference Range Interpretation Comments AGAP (test code = AGAP) 13.0 10.0-20.0 [facility]2016-12-26 10:22:00 Test Item Value Reference Range Interpretation Comments Phosphorus (test code = Phosphorus) 4.6 2.5-4.5 [facility]anoLqvdmelYBXZPQZIIS3386-55-44 10:22:00 Test Item Value Reference Range Interpretation Comments RBC (test code = RBC) 3.68 4.20-5.40 [facility]anoGzokgjmELMQPQPPJE0127-03-32 10:22:00 Test Item Value Reference Range Interpretation Comments Hgb (test code = Hgb) 9.9 12.0-16.0 [facility]anoYorvjdpJBMYMQKPZI8286-96-26 10:22:00 Test Item Value Reference Range Interpretation Comments MCH (test code = MCH) 26.8 pg 27.0-31.0 [facility]anoUbbpswyZRDJRGJYJD5534-04-18 10:22:00 Test Item Value Reference Range Interpretation Comments MCHC (test code = MCHC) 34.2 32.0-36.0 [facility] PlanoUrieexpSYDYRNCTFK0778-41-08 10:22:00 Test Item Value Reference Range Interpretation Comments MCV (test code = MCV) 78.3 80.0-98.0 [place] 140206-12-26 10:22:00 Test Item Value Reference Range Interpretation Comments Hct (test code = Hct) 28.8 36.0-48.0 [facility]anoQdqihntFVTIJFOBDV7655-01-50 10:22:00 Test Item Value Reference Range Interpretation Comments Platelet (test code = Platelet) 191 133-450 [facility] PlanoFgjoehzHEFATSVULR7669-69-92 10:22:00 Test Item Value Reference Range Interpretation Comments MPV (test code = MPV) 9.5 7.4-10.4 [facility]anoJjkagyiUNGVGMFTUX9945-85-00 10:22:00 Test Item Value Reference Range Interpretation Comments RDW (test code = RDW) 15.3 11.5-14.5 [facility]anoVlwgfwnXZFEZLKDHA9912-66-44 10:22:00 Test Item Value Reference Range Interpretation Comments WBC (test code = WBC) 5.6 3.7-10.4 [facility] PlanoZkvhnzkESEKTRLDOE4400-19-16 10:22:00 Test Item Value Reference Range Interpretation Comments Eosinophils # (test code 0.5 See_Comment [A utomated message] The = Eosinophils #) system whic h generated this result tra nsmitted reference range : <=0.5. The reference r leo was not used to int erpret this result as normal/abnormal . [facility] PlanoXkaksbxADWAGXWKNF1099-22-32 10:22:00 Test Item Value Reference Range Interpretation Comments Microcyte (test code = 1+ *ABN*(06/15/16 Microcyte) 4:22 AM) [facility]anoCkhcitnJPJDHHNPPN8312-15-14 10:22:00 Test Item Value Reference Range Interpretation Comments Basophils # (test code 0.1 See_Comment [Aut omated message] The = Basophils #) system which generated this result tra nsmitted reference range : <=0.2. The reference r leo was not used to int erpret this result as normal/abnormal . [facility] PlanoXakksdlEYZAZUGVIU5565-29-37 10:22:00 Test Item Value Reference Range Interpretation Comments Lymphocytes (test code = Lymphocytes) 33.5 20.0-40.0 [facility]anoQceqbacCOXSORYZVC1910-93-85 10:22:00 Test Item Value Reference Range Interpretation Comments Segs (test code = Segs) 47.6 45.0-75.0 [facility] PlanoTiqauycMELMSIJCXZ8610-28-63 10:22:00 Test Item Value Reference Range Interpretation Comments Monocytes (test code = Monocytes) 8.4 2.0-12.0 [facility]anoWtrrngwKYYAZDOZZP2260-44-08 10:22:00 Test Item Value Reference Range Interpretation Comments Eosinophils (test code = 9.4 See_Comment [A utomated message] The Eosinophils) system which ge nerated this result tra nsmitted reference range : <=4.0. The reference r leo was not used to int erpret this result as normal/abnormal . [facility] PlanoGeiwrdnMVDVQCVYXQ0119-44-01 10:22:00 Test Item Value Reference Range Interpretation Comments Segs-Bands # (test code = Segs-Bands #) 2.6 1.5-8.1 [facility] PlanoLdrbamgZVGGSILAGM7654-91-03 10:22:00 Test Item Value Reference Range Interpretation Comments Lymphocytes # (test code = Lymphocytes 1.9 1.0-5.5 #) [facility]anoEbmhoouMPAWVOALXX2658-14-08 10:22:00 Test Item Value Reference Range Interpretation Comments Basophils (test code = 1.1 See_Comment [Aut omated message] The Basophils) system which ge nerated this result tra nsmitted reference range : <=1.0. The reference r leo was not used to int erpret this result as normal/abnormal . [facility] PlanoYsvneoxVNKXQKDDEX6326-01-51 10:22:00 Test Item Value Reference Range Interpretation Comments Monocytes # (test code 0.5 See_Comment [Aut omated message] The = Monocytes #) system which generated this result tra nsmitted reference range : <=0.8. The reference r leo was not used to int erpret this result as normal/abnormal . [facility] GHBNNWG3170-32-41 10:22:00 Test Item Value Reference Range Interpretation Comments BNP (test code = BNP) 526 [facility]2016-12-26 10:22:00 Test Item Value Reference Range Interpretation Comments Magnesium Lvl (test code = Magnesium 2.1 1.8-2.4 Lvl) [facility]2016-12-26 10:22:00 Test Item Value Reference Range Interpretation Comments Glucose Lvl (test code = Glucose Lvl) 117 70-99 [facility]2016-12-26 10:22:00 Test Item Value Reference Range Interpretation Comments BUN (test code = BUN) 41 7-22 [facility]2016-12-26 10:22:00 Test Item Value Reference Range Interpretation Comments Creatinine Lvl (test code = Creatinine 2.00 0.50-1.40 Lvl) [facility]2016-12-26 10:22:00 Test Item Value Reference Range Interpretation Comments Calcium Lvl (test code = Calcium Lvl) 9.0 8.5-10.5 [facility]2016-12-26 10:22:00 Test Item Value Reference Range Interpretation Comments Chloride Lvl (test code = Chloride Lvl) 102 95-109 [facility]2016-12-26 10:22:00 Test Item Value Reference Range Interpretation Comments CO2 (test code = CO2) 33 24-32 [facility]2016-12-26 10:22:00 Test Item Value Reference Range Interpretation Comments Sodium Lvl (test code = Sodium Lvl) 144 135-145 [facility]2016-12-26 10:22:00 Test Item Value Reference Range Interpretation Comments Potassium Lvl (test code = Potassium 4.0 3.5-5.1 Lvl) [facility]2016-12-26 10:22:00 Test Item Value Reference Range Interpretation Comments eGFR (test code = eGFR) 32 [facility]2016-12-26 10:22:00 Test Item Value Reference Range Interpretation Comments AGAP (test code = AGAP) 13.0 10.0-20.0 [facility]2016-12-26 10:22:00 Test Item Value Reference Range Interpretation Comments Phosphorus (test code = Phosphorus) 4.6 2.5-4.5 [facility]anoWieptkoBYAGBQINOF9894-96-98 10:22:00 Test Item Value Reference Range Interpretation Comments RBC (test code = RBC) 3.68 4.20-5.40 [facility] PlanoAcexzkxSABUCYUTNA2474-66-78 10:22:00 Test Item Value Reference Range Interpretation Comments Hgb (test code = Hgb) 9.9 12.0-16.0 [facility] PlanoUbumtjxHCUXEREMQP1040-33-56 10:22:00 Test Item Value Reference Range Interpretation Comments MCH (test code = MCH) 26.8 pg 27.0-31.0 [facility] PlanoSbzoasaNSLHRLAJYX2708-92-28 10:22:00 Test Item Value Reference Range Interpretation Comments MCHC (test code = MCHC) 34.2 32.0-36.0 [facility]anoPumtgiuXHOHARQPNU7477-36-15 10:22:00 Test Item Value Reference Range Interpretation Comments MCV (test code = MCV) 78.3 80.0-98.0 [facility]anoEmwqxooWRKKACMMFP1123-39-40 10:22:00 Test Item Value Reference Range Interpretation Comments Hct (test code = Hct) 28.8 36.0-48.0 [facility] PlanoBcvkeulLAXLPPVYCG8536-16-72 10:22:00 Test Item Value Reference Range Interpretation Comments Platelet (test code = Platelet) 191 133-450 [facility] PlanoBkyiotjBIAJNUYHQF0640-51-07 10:22:00 Test Item Value Reference Range Interpretation Comments MPV (test code = MPV) 9.5 7.4-10.4 [facility]anoMfonapzUDUPLLAWGX9581-21-39 10:22:00 Test Item Value Reference Range Interpretation Comments RDW (test code = RDW) 15.3 11.5-14.5 [facility] PlanoUnytdevNBGAGZVFEW0585-03-47 10:22:00 Test Item Value Reference Range Interpretation Comments WBC (test code = WBC) 5.6 3.7-10.4 [facility] PlanoSauwtuxSDMLQUYPLU0327-62-86 10:22:00 Test Item Value Reference Range Interpretation Comments Eosinophils # (test code 0.5 See_Comment [A utomated message] The = Eosinophils #) system whic h generated this result tra nsmitted reference range : <=0.5. The reference r leo was not used to int erpret this result as normal/abnormal . [facility] PlanoBenxltdZAMIXJGTQU6395-66-53 10:22:00 Test Item Value Reference Range Interpretation Comments Microcyte (test code = 1+ *ABN*(06/15/16 Microcyte) 4:22 AM) [facility] PlanoUebanftDJBDEFOGYB4297-15-53 10:22:00 Test Item Value Reference Range Interpretation Comments Basophils # (test code 0.1 See_Comment [Aut omated message] The = Basophils #) system which generated this result tra nsmitted reference range : <=0.2. The reference r leo was not used to int erpret this result as normal/abnormal . [facility] PlanoTuzdokeSFAVWHOGOA3917-72-67 10:22:00 Test Item Value Reference Range Interpretation Comments Lymphocytes (test code = Lymphocytes) 33.5 20.0-40.0 [facility]anoPlzkbgyCPOTXQVZPC6798-56-00 10:22:00 Test Item Value Reference Range Interpretation Comments Segs (test code = Segs) 47.6 45.0-75.0 [facility] PlanoWnuvbueAEQTZMRPQV0835-07-88 10:22:00 Test Item Value Reference Range Interpretation Comments Monocytes (test code = Monocytes) 8.4 2.0-12.0 [facility]MzuryjzGLIHNJDNCF4002-96-44 10:22:00 Test Item Value Reference Range Interpretation Comments Eosinophils (test code = 9.4 See_Comment [A utomated message] The Eosinophils) system which ge nerated this result tra nsmitted reference range : <=4.0. The reference r leo was not used to int erpret this result as normal/abnormal . [facility] PlanoItqtbtdMCNPDDZNZC5881-99-73 10:22:00 Test Item Value Reference Range Interpretation Comments Segs-Bands # (test code = Segs-Bands #) 2.6 1.5-8.1 [facility] PlanoZezdmbmNOTSFXMSYI8281-23-31 10:22:00 Test Item Value Reference Range Interpretation Comments Lymphocytes # (test code = Lymphocytes 1.9 1.0-5.5 #) [facility]anoKdjpthuSXWGTBTQDK2091-94-26 10:22:00 Test Item Value Reference Range Interpretation Comments Basophils (test code = 1.1 See_Comment [Aut omated message] The Basophils) system which ge nerated this result tra nsmitted reference range : <=1.0. The reference r leo was not used to int erpret this result as normal/abnormal . [facility] PlanoWemwikgEZUYFGEPUE7495-30-69 10:22:00 Test Item Value Reference Range Interpretation Comments Monocytes # (test code 0.5 See_Comment [Aut omated message] The = Monocytes #) system which generated this result tra nsmitted reference range : <=0.8. The reference r leo was not used to int erpret this result as normal/abnormal . [facility] XBQOGTT8049-55-89 10:22:00 Test Item Value Reference Range Interpretation Comments BNP (test code = BNP) 526 [facility] ZDAKV6047-93-42 10:22:00 Test Item Value Reference Range Interpretation Comments Magnesium Lvl (test code = Magnesium 2.1 1.8-2.4 Lvl) [facility] [id number] 10:22:00 Test Item Value Reference Range Interpretation Comments Glucose Lvl (test code = Glucose Lvl) 117 70-99 [facility]2016-12-26 10:22:00 Test Item Value Reference Range Interpretation Comments BUN (test code = BUN) 41 7-22 [facility]2016-12-26 10:22:00 Test Item Value Reference Range Interpretation Comments Creatinine Lvl (test code = Creatinine 2.00 0.50-1.40 Lvl) [facility]2016-12-26 10:22:00 Test Item Value Reference Range Interpretation Comments Calcium Lvl (test code = Calcium Lvl) 9.0 8.5-10.5 [facility]2016-12-26 10:22:00 Test Item Value Reference Range Interpretation Comments Chloride Lvl (test code = Chloride Lvl) 102 95-109 [facility]2016-12-26 10:22:00 Test Item Value Reference Range Interpretation Comments CO2 (test code = CO2) 33 24-32 [facility]2016-12-26 10:22:00 Test Item Value Reference Range Interpretation Comments Sodium Lvl (test code = Sodium Lvl) 144 135-145 [facility]2016-12-26 10:22:00 Test Item Value Reference Range Interpretation Comments Potassium Lvl (test code = Potassium 4.0 3.5-5.1 Lvl) [facility]2016-12-26 10:22:00 Test Item Value Reference Range Interpretation Comments eGFR (test code = eGFR) 32 [facility]2016-12-26 10:22:00 Test Item Value Reference Range Interpretation Comments AGAP (test code = AGAP) 13.0 10.0-20.0 [facility]2016-12-26 10:22:00 Test Item Value Reference Range Interpretation Comments Phosphorus (test code = Phosphorus) 4.6 2.5-4.5 [facility]anoIcqbpypIWRSPVBXXU5300-52-96 10:22:00 Test Item Value Reference Range Interpretation Comments RBC (test code = RBC) 3.68 4.20-5.40 [facility]anoMpufvmuLMJCRIWSDX5772-43-91 10:22:00 Test Item Value Reference Range Interpretation Comments Hgb (test code = Hgb) 9.9 12.0-16.0 [facility] PlanoDengepsQGYFTRUADI5623-86-19 10:22:00 Test Item Value Reference Range Interpretation Comments MCH (test code = MCH) 26.8 pg 27.0-31.0 [facility] PlanoUicgrimQVESLYFDWH0088-84-00 10:22:00 Test Item Value Reference Range Interpretation Comments MCHC (test code = MCHC) 34.2 32.0-36.0 [facility] PlanoGljixbnBAFTYUTOGF0298-80-30 10:22:00 Test Item Value Reference Range Interpretation Comments MCV (test code = MCV) 78.3 80.0-98.0 [facility] PlanoLsenrhcWAFRAPTOGH7363-28-60 10:22:00 Test Item Value Reference Range Interpretation Comments Hct (test code = Hct) 28.8 36.0-48.0 [facility] PlanoAfatwxnUEETUAHVTP9342-58-17 10:22:00 Test Item Value Reference Range Interpretation Comments Platelet (test code = Platelet) 191 133-450 [facility] PlanoXvymotvMLKNAJNBKL9521-96-95 10:22:00 Test Item Value Reference Range Interpretation Comments MPV (test code = MPV) 9.5 7.4-10.4 [facility] PlanoIjevizlDMREPEQMZZ8884-37-51 10:22:00 Test Item Value Reference Range Interpretation Comments RDW (test code = RDW) 15.3 11.5-14.5 [facility] [place]LtfdatpBDDBRIEVYX0856-64-46 10:22:00 Test Item Value Reference Range Interpretation Comments WBC (test code = WBC) 5.6 3.7-10.4 [facility] [place]anoIoveumoEZQLKZCNXR5080-26-17 10:22:00 Test Item Value Reference Range Interpretation Comments Eosinophils # (test code 0.5 See_Comment [A utomated message] The = Eosinophils #) system [facility] generated this result tra nsmitted reference range : <=0.5. The reference r leo was not used to int erpret this result as normal/abnormal . [facility] [place]anoZtzyuprEBLSNWRIDP8340-97-87 10:22:00 Test Item Value Reference Range Interpretation Comments Microcyte (test code = 1+ *ABN*(06/15/16 Microcyte) 4:22 AM) [facility] PlanoWhumukePWMPRJTJQK9846-05-94 10:22:00 Test Item Value Reference Range Interpretation Comments Basophils # (test code 0.1 See_Comment [Aut omated message] The = Basophils #) system which generated this result tra nsmitted reference range : <=0.2. The reference r leo was not used to int erpret this result as normal/abnormal . [facility] [place]anoHzxkmjpBSDKKBRSRS9633-48-88 10:22:00 Test Item Value Reference Range Interpretation Comments Lymphocytes (test code = Lymphocytes) 33.5 20.0-40.0 [facility] [place]anoUmgqzgiUDQUQSOUEF6090-21-20 10:22:00 Test Item Value Reference Range Interpretation Comments Segs (test code = Segs) 47.6 45.0-75.0 [facility] [place]anoTsyhlnzCYDURFIACP8155-00-28 10:22:00 Test Item Value Reference Range Interpretation Comments Monocytes (test code = Monocytes) 8.4 2.0-12.0 [facility] [place]anoRlsfqbjBQVNRNNAZN8757-00-90 10:22:00 Test Item Value Reference Range Interpretation Comments Eosinophils (test code = 9.4 See_Comment [A utomated message] The Eosinophils) system which ge nerated this result tra nsmitted reference range : <=4.0. The reference r leo was not used to int erpret this result as normal/abnormal . [facility] [place]anoVtlcxyeYBLEPDQYIL4912-75-68 10:22:00 Test Item Value Reference Range Interpretation Comments Segs-Bands # (test code = Segs-Bands #) 2.6 1.5-8.1 [facility] [place]anoHtdhsluCNXPJISRUM6955-58-19 10:22:00 Test Item Value Reference Range Interpretation Comments Lymphocytes # (test code = Lymphocytes 1.9 1.0-5.5 #) [facility] [place]anoCnavdxiMMBALPQSJT9886-34-93 10:22:00 Test Item Value Reference Range Interpretation Comments Basophils (test code = 1.1 See_Comment [Aut omated message] The Basophils) system which ge nerated this result tra nsmitted reference range : <=1.0. The reference r leo was not used to int erpret this result as normal/abnormal . [facility] PlanoDvafhanHFJLDZCZPU5207-12-38 10:22:00 Test Item Value Reference Range Interpretation Comments Monocytes # (test code 0.5 See_Comment [Aut omated message] The = Monocytes #) system which generated this result tra nsmitted reference range : <=0.8. The reference r leo was not used to int erpret this result as normal/abnormal . [facility] 10:22:00 Test Item Value Reference Range Interpretation Comments BNP (test code = BNP) 526 [facility]2016-12-26 10:22:00 Test Item Value Reference Range Interpretation Comments Magnesium Lvl (test code = Magnesium 2.1 1.8-2.4 Lvl) [facility]2016-12-26 10:22:00 Test Item Value Reference Range Interpretation Comments Glucose Lvl (test code = Glucose Lvl) 117 70-99 [facility]2016-12-26 10:22:00 Test Item Value Reference Range Interpretation Comments BUN (test code = BUN) 41 7-22 [facility]2016-12-26 10:22:00 Test Item Value Reference Range Interpretation Comments Creatinine Lvl (test code = Creatinine 2.00 0.50-1.40 Lvl) [facility]2016-12-26 10:22:00 Test Item Value Reference Range Interpretation Comments Calcium Lvl (test code = Calcium Lvl) 9.0 8.5-10.5 [facility]2016-12-26 10:22:00 Test Item Value Reference Range Interpretation Comments Chloride Lvl (test code = Chloride Lvl) 102 95-109 [facility]2016-12-26 10:22:00 Test Item Value Reference Range Interpretation Comments CO2 (test code = CO2) 33 24-32 [facility]2016-12-26 10:22:00 Test Item Value Reference Range Interpretation Comments Sodium Lvl (test code = Sodium Lvl) 144 135-145 [facility]2016-12-26 10:22:00 Test Item Value Reference Range Interpretation Comments Potassium Lvl (test code = Potassium 4.0 3.5-5.1 Lvl) [facility]2016-12-26 10:22:00 Test Item Value Reference Range Interpretation Comments eGFR (test code = eGFR) 32 [facility]2016-12-26 10:22:00 Test Item Value Reference Range Interpretation Comments AGAP (test code = AGAP) 13.0 10.0-20.0 [facility]2016-12-26 10:22:00 Test Item Value Reference Range Interpretation Comments Phosphorus (test code = Phosphorus) 4.6 2.5-4.5 [facility] 10:22:00 Test Item Value Reference Range Interpretation Comments RBC (test code = RBC) 3.68 4.20-5.40 [facility] [place]anoEusuvryLGCBJUXMSX3960-13-30 10:22:00 Test Item Value Reference Range Interpretation Comments Hgb (test code = Hgb) 9.9 12.0-16.0 [facility] [place]anoJyacizeGJIQDCNVZN3191-76-10 10:22:00 Test Item Value Reference Range Interpretation Comments MCH (test code = MCH) 26.8 pg 27.0-31.0 [facility] [place]anoAyorbyrSOHCIGGZAH2926-92-65 10:22:00 Test Item Value Reference Range Interpretation Comments MCHC (test code = MCHC) 34.2 32.0-36.0 [facility] [place]GsldvshUGCACVHBWB3634-86-12 10:22:00 Test Item Value Reference Range Interpretation Comments MCV (test code = MCV) 78.3 80.0-98.0 [facility] [place]anoDslouenOCEFEHMAGS8622-44-36 10:22:00 Test Item Value Reference Range Interpretation Comments Hct (test code = Hct) 28.8 36.0-48.0 [facility] [place]anoHosgkpbGHJHCDIBAQ1594-26-18 10:22:00 Test Item Value Reference Range Interpretation Comments Platelet (test code = Platelet) 191 133-450 [facility] [place]anoLnqqyvaPKEZAUTEQJ5283-20-01 10:22:00 Test Item Value Reference Range Interpretation Comments MPV (test code = MPV) 9.5 7.4-10.4 [facility] [place]anoRlfspftUIEFHHFWFL7945-72-20 10:22:00 Test Item Value Reference Range Interpretation Comments RDW (test code = RDW) 15.3 11.5-14.5 [facility] [place]anoFveixqnSFOZFRYOTK7129-97-56 10:22:00 Test Item Value Reference Range Interpretation Comments WBC (test code = WBC) 5.6 3.7-10.4 [facility] [place]anoNseiqkrHZBCIDMAZW1221-04-36 10:22:00 Test Item Value Reference Range Interpretation Comments Eosinophils # (test code 0.5 See_Comment [A utomated message] The = Eosinophils #) system whic h generated this result tra nsmitted reference range : <=0.5. The reference r leo was not used to int erpret this result as normal/abnormal . [facility] [place]anoNmgadrtMKZRMRMQVQ0378-17-30 10:22:00 Test Item Value Reference Range Interpretation Comments Microcyte (test code = 1+ *ABN*(06/15/16 Microcyte) 4:22 AM) [facility] [place]anoItrllrrBWRYFQETYN6707-88-72 10:22:00 Test Item Value Reference Range Interpretation Comments Basophils # (test code 0.1 See_Comment [Aut omated message] The = Basophils #) system which generated this result tra nsmitted reference range : <=0.2. The reference r leo was not used to int erpret this result as normal/abnormal . [facility] [place]anoWcnoppjKBFOMCZMSE9954-75-29 10:22:00 Test Item Value Reference Range Interpretation Comments Lymphocytes (test code = Lymphocytes) 33.5 20.0-40.0 [facility] [place]anoZosrywqDYAUSPOXVE4476-42-81 10:22:00 Test Item Value Reference Range Interpretation Comments Segs (test code = Segs) 47.6 45.0-75.0 [facility] [place]anoVmsyuwqPSGLAMKEML5528-86-62 10:22:00 Test Item Value Reference Range Interpretation Comments Monocytes (test code = Monocytes) 8.4 2.0-12.0 [facility] [place]anoTpkpbciROGJTLEKUW7781-00-76 10:22:00 Test Item Value Reference Range Interpretation Comments Eosinophils (test code = 9.4 See_Comment [A utomated message] The Eosinophils) system which ge nerated this result tra nsmitted reference range : <=4.0. The reference r leo was not used to int erpret this result as normal/abnormal . [facility] [place]anoUonnyuvOZBJQYXBBS5484-25-26 10:22:00 Test Item Value Reference Range Interpretation Comments Segs-Bands # (test code = Segs-Bands #) 2.6 1.5-8.1 [facility] [place]anoRsjitcnELFVKPQILM8250-88-09 10:22:00 Test Item Value Reference Range Interpretation Comments Lymphocytes # (test code = Lymphocytes 1.9 1.0-5.5 #) [facility] [place]anoJjpiplhVCKVOWKZXH2974-44-83 10:22:00 Test Item Value Reference Range Interpretation Comments Basophils (test code = 1.1 See_Comment [Aut omated message] The Basophils) system which ge nerated this result tra nsmitted reference range : <=1.0. The reference r leo was not used to int erpret this result as normal/abnormal . [facility] [place]anoRhljanfDCPFUVVPUQ4926-16-22 10:22:00 Test Item Value Reference Range Interpretation Comments Monocytes # (test code 0.5 See_Comment [Aut omated message] The = Monocytes #) system which generated this result tra nsmitted reference range : <=0.8. The reference r leo was not used to int erpret this result as normal/abnormal . [facility]2016-12-25 11:03:00 Test Item Value Reference Range Interpretation Comments Phosphorus (test code = Phosphorus) 4.8 2.5-4.5 [facility]2016-12-25 11:03:00 Test Item Value Reference Range Interpretation Comments Magnesium Lvl (test code = Magnesium 2.0 1.8-2.4 Lvl) [facility]2016-12-25 11:03:00 Test Item Value Reference Range Interpretation Comments eGFR (test code = eGFR) 32 [facility]2016-12-25 11:03:00 Test Item Value Reference Range Interpretation Comments Chloride Lvl (test code = Chloride Lvl) 101 95-109 [facility]2016-12-25 11:03:00 Test Item Value Reference Range Interpretation Comments Potassium Lvl (test code = Potassium 4.4 3.5-5.1 Lvl) [facility]2016-12-25 11:03:00 Test Item Value Reference Range Interpretation Comments BUN (test code = BUN) 37 7-22 [facility]2016-12-25 11:03:00 Test Item Value Reference Range Interpretation Comments Glucose Lvl (test code = Glucose Lvl) 119 70-99 [facility]2016-12-25 11:03:00 Test Item Value Reference Range Interpretation Comments Creatinine Lvl (test code = Creatinine 2.00 0.50-1.40 Lvl) [facility]2016-12-25 11:03:00 Test Item Value Reference Range Interpretation Comments Sodium Lvl (test code = Sodium Lvl) 142 135-145 [facility]2016-12-25 11:03:00 Test Item Value Reference Range Interpretation Comments Calcium Lvl (test code = Calcium Lvl) 8.7 8.5-10.5 [facility]2016-12-25 11:03:00 Test Item Value Reference Range Interpretation Comments CO2 (test code = CO2) 32 24-32 [facility]2016-12-25 11:03:00 Test Item Value Reference Range Interpretation Comments AGAP (test code = AGAP) 13.4 10.0-20.0 [facility] PlanoBqziaoaBDKCMJYBWX7284-58-53 11:03:00 Test Item Value Reference Range Interpretation Comments Eosinophils (test code = 10.3 See_Comment [A utomated message] The Eosinophils) system which ge nerated this result tra nsmitted reference range : <=4.0. The reference r leo was not used to int erpret this result as normal/abnormal . [facility] [place]anoUfhifmeUREWJUKLZI2483-21-87 11:03:00 Test Item Value Reference Range Interpretation Comments Basophils # (test code 0.1 See_Comment [Aut omated message] The = Basophils #) system which generated this result tra nsmitted reference range : <=0.2. The reference r leo was not used to int erpret this result as normal/abnormal . [facility] [place]anoPsednycDANPPVZYHD4373-38-15 11:03:00 Test Item Value Reference Range Interpretation Comments Eosinophils # (test code 0.5 See_Comment [A utomated message] The = Eosinophils #) system wh h generated this result tra nsmitted reference range : <=0.5. The reference r leo was not used to int erpret this result as normal/abnormal . [facility] [place]anoBsnozygFTQGRQTMZW5243-02-01 11:03:00 Test Item Value Reference Range Interpretation Comments Monocytes # (test code 0.5 See_Comment [Aut omated message] The = Monocytes #) system which generated this result tra nsmitted reference range : <=0.8. The reference r leo was not used to int erpret this result as normal/abnormal . [facility] [place]anoQmmuxezYEGSEKBFTI5978-26-30 11:03:00 Test Item Value Reference Range Interpretation Comments Segs-Bands # (test code = Segs-Bands #) 2.1 1.5-8.1 [facility] [place]anoXbsylhgNZJANIEWLD5083-29-29 11:03:00 Test Item Value Reference Range Interpretation Comments Basophils (test code = 1.2 See_Comment [Aut omated message] The Basophils) system which ge nerated this result tra nsmitted reference range : <=1.0. The reference r leo was not used to int erpret this result as normal/abnormal . [facility] [place]anoQficihoPTNDGMNCAK7985-90-34 11:03:00 Test Item Value Reference Range Interpretation Comments Lymphocytes # (test code = Lymphocytes 1.9 1.0-5.5 #) [facility] [place]anoKlijmniHFHLNIPUUX8634-30-89 11:03:00 Test Item Value Reference Range Interpretation Comments Segs (test code = Segs) 42.5 45.0-75.0 [facility] [place]anoVnxfuvsMRFTNDQCHK3321-63-14 11:03:00 Test Item Value Reference Range Interpretation Comments Lymphocytes (test code = Lymphocytes) 37.0 20.0-40.0 [facility] [place]anoVszocfzGEZGGZSUPT8516-77-94 11:03:00 Test Item Value Reference Range Interpretation Comments Monocytes (test code = Monocytes) 9.0 2.0-12.0 [facility] [place]XhpsmljTOCHMWGHJN8689-28-49 11:03:00 Test Item Value Reference Range Interpretation Comments MPV (test code = MPV) 9.8 7.4-10.4 [facility] [place]anoBfhbwmtNAVXWCYEHO7235-91-81 11:03:00 Test Item Value Reference Range Interpretation Comments WBC (test code = WBC) 5.0 3.7-10.4 [facility] [place]anoFtwfdmgWIVYCEEXWE5862-02-30 11:03:00 Test Item Value Reference Range Interpretation Comments RBC (test code = RBC) 3.57 4.20-5.40 [facility] [place]anoSpdfsjzSEYIIKPLZR1782-78-83 11:03:00 Test Item Value Reference Range Interpretation Comments Hgb (test code = Hgb) 9.4 12.0-16.0 [facility] [place]anoQtofmbcLLFPKWHXWH1349-78-69 11:03:00 Test Item Value Reference Range Interpretation Comments Hct (test code = Hct) 28.5 36.0-48.0 [facility] [place]anoOmbohpsYIDVICFYEY8294-39-96 11:03:00 Test Item Value Reference Range Interpretation Comments Platelet (test code = Platelet) 183 133-450 [facility] [place]anoXbzazwgHZXYJQKZTL5626-79-81 11:03:00 Test Item Value Reference Range Interpretation Comments MCV (test code = MCV) 79.9 80.0-98.0 [facility] [place]anoWeuhxmzCTDJEKEWEC0218-23-39 11:03:00 Test Item Value Reference Range Interpretation Comments MCH (test code = MCH) 26.3 pg 27.0-31.0 [facility] [place]anoWcmyxtgVOMKWKRNOY7199-74-85 11:03:00 Test Item Value Reference Range Interpretation Comments MCHC (test code = MCHC) 33.0 32.0-36.0 [facility] [place]anoVqnpcmrGARQJVRWPV9670-91-27 11:03:00 Test Item Value Reference Range Interpretation Comments RDW (test code = RDW) 15.9 11.5-14.5 [facility]2016-12-25 11:03:00 Test Item Value Reference Range Interpretation Comments Phosphorus (test code = Phosphorus) 4.8 2.5-4.5 [facility]2016-12-25 11:03:00 Test Item Value Reference Range Interpretation Comments Magnesium Lvl (test code = Magnesium 2.0 1.8-2.4 Lvl) [facility]2016-12-25 11:03:00 Test Item Value Reference Range Interpretation Comments eGFR (test code = eGFR) 32 [facility]2016-12-25 11:03:00 Test Item Value Reference Range Interpretation Comments Chloride Lvl (test code = Chloride Lvl) 101 95-109 [facility]2016-12-25 11:03:00 Test Item Value Reference Range Interpretation Comments Potassium Lvl (test code = Potassium 4.4 3.5-5.1 Lvl) [facility]2016-12-25 11:03:00 Test Item Value Reference Range Interpretation Comments BUN (test code = BUN) 37 7-22 [facility]2016-12-25 11:03:00 Test Item Value Reference Range Interpretation Comments Glucose Lvl (test code = Glucose Lvl) 119 70-99 [facility]2016-12-25 11:03:00 Test Item Value Reference Range Interpretation Comments Creatinine Lvl (test code = Creatinine 2.00 0.50-1.40 Lvl) [facility]2016-12-25 11:03:00 Test Item Value Reference Range Interpretation Comments Sodium Lvl (test code = Sodium Lvl) 142 135-145 [facility]2016-12-25 11:03:00 Test Item Value Reference Range Interpretation Comments Calcium Lvl (test code = Calcium Lvl) 8.7 8.5-10.5 [facility]2016-12-25 11:03:00 Test Item Value Reference Range Interpretation Comments CO2 (test code = CO2) 32 24-32 [facility]2016-12-25 11:03:00 Test Item Value Reference Range Interpretation Comments AGAP (test code = AGAP) 13.4 10.0-20.0 [facility] [place]anoNnbfnnwZSIVQRDHTH9316-12-65 11:03:00 Test Item Value Reference Range Interpretation Comments Eosinophils (test code = 10.3 See_Comment [A utomated message] The Eosinophils) system which ge nerated this result tra nsmitted reference range : <=4.0. The reference r leo was not used to int erpret this result as normal/abnormal . [facility] [place]anoGnjfacnCUDHFEWYZD0484-72-23 11:03:00 Test Item Value Reference Range Interpretation Comments Basophils # (test code 0.1 See_Comment [Aut omated message] The = Basophils #) system which generated this result tra nsmitted reference range : <=0.2. The reference r leo was not used to int erpret this result as normal/abnormal . [facility] [place]anoXrmmwttMZBZHTBDDF1352-33-92 11:03:00 Test Item Value Reference Range Interpretation Comments Eosinophils # (test code 0.5 See_Comment [A utomated message] The = Eosinophils #) system whic h generated this result tra nsmitted reference range : <=0.5. The reference r leo was not used to int erpret this result as normal/abnormal . [facility] [place]anoGydpsupMNDQGHMEQH2818-25-34 11:03:00 Test Item Value Reference Range Interpretation Comments Monocytes # (test code 0.5 See_Comment [Aut omated message] The = Monocytes #) system which generated this result tra nsmitted reference range : <=0.8. The reference r leo was not used to int erpret this result as normal/abnormal . [facility] [place]anoUgnodcbQPCGBZTQIF9973-15-49 11:03:00 Test Item Value Reference Range Interpretation Comments Segs-Bands # (test code = Segs-Bands #) 2.1 1.5-8.1 [facility] [place]anoSiujcoePLFRMEWYPP0520-45-11 11:03:00 Test Item Value Reference Range Interpretation Comments Basophils (test code = 1.2 See_Comment [Aut omated message] The Basophils) system which ge nerated this result tra nsmitted reference range : <=1.0. The reference r leo was not used to int erpret this result as normal/abnormal . [facility] [place]anoRmxklgpGGSZRLPYAK2374-29-03 11:03:00 Test Item Value Reference Range Interpretation Comments Lymphocytes # (test code = Lymphocytes 1.9 1.0-5.5 #) [facility] PlanoRggiaoeVTOCPLJLLX5655-29-74 11:03:00 Test Item Value Reference Range Interpretation Comments Segs (test code = Segs) 42.5 45.0-75.0 [facility] [place]anoSkxyvipASOXDTEIXK7606-03-03 11:03:00 Test Item Value Reference Range Interpretation Comments Lymphocytes (test code = Lymphocytes) 37.0 20.0-40.0 [facility] [place]anoDmowmwtLHSSCAUBCA4175-92-36 11:03:00 Test Item Value Reference Range Interpretation Comments Monocytes (test code = Monocytes) 9.0 2.0-12.0 [facility] [place]anoVosmlxiTWEZXXCOCQ5197-56-14 11:03:00 Test Item Value Reference Range Interpretation Comments MPV (test code = MPV) 9.8 7.4-10.4 [facility] [place]anoWmyomymASEXOQBVCB6041-10-77 11:03:00 Test Item Value Reference Range Interpretation Comments WBC (test code = WBC) 5.0 3.7-10.4 [facility] PlanoNiaxaaeOALQZSCQEZ2399-26-48 11:03:00 Test Item Value Reference Range Interpretation Comments RBC (test code = RBC) 3.57 4.20-5.40 [facility] [place]anoXnajmdqFEOJDFLCOE8506-47-19 11:03:00 Test Item Value Reference Range Interpretation Comments Hgb (test code = Hgb) 9.4 12.0-16.0 [facility] [place]anoMbcplzrOWUTAEMRXV9653-02-03 11:03:00 Test Item Value Reference Range Interpretation Comments Hct (test code = Hct) 28.5 36.0-48.0 [facility] PlanoRzcanltSUIHWJPHQU8165-78-74 11:03:00 Test Item Value Reference Range Interpretation Comments Platelet (test code = Platelet) 183 133-450 [facility] [place]anoEqsfpgaYRQLQQMGBF0983-66-16 11:03:00 Test Item Value Reference Range Interpretation Comments MCV (test code = MCV) 79.9 80.0-98.0 [facility] [place]anoRdfpyhqWLKTGMYVOU6835-26-23 11:03:00 Test Item Value Reference Range Interpretation Comments MCH (test code = MCH) 26.3 pg 27.0-31.0 [facility] PlanoRkxxnpsLQZNJSDQAC9353-93-41 11:03:00 Test Item Value Reference Range Interpretation Comments MCHC (test code = MCHC) 33.0 32.0-36.0 [facility] [place]anoGrrkrymTOTDBLOMML9789-31-25 11:03:00 Test Item Value Reference Range Interpretation Comments RDW (test code = RDW) 15.9 11.5-14.5 [facility]2016-12-25 11:03:00 Test Item Value Reference Range Interpretation Comments Phosphorus (test code = Phosphorus) 4.8 2.5-4.5 [facility]2016-12-25 11:03:00 Test Item Value Reference Range Interpretation Comments Magnesium Lvl (test code = Magnesium 2.0 1.8-2.4 Lvl) [facility]2016-12-25 11:03:00 Test Item Value Reference Range Interpretation Comments eGFR (test code = eGFR) 32 [facility]2016-12-25 11:03:00 Test Item Value Reference Range Interpretation Comments Chloride Lvl (test code = Chloride Lvl) 101 95-109 [facility]2016-12-25 11:03:00 Test Item Value Reference Range Interpretation Comments Potassium Lvl (test code = Potassium 4.4 3.5-5.1 Lvl) [facility]2016-12-25 11:03:00 Test Item Value Reference Range Interpretation Comments BUN (test code = BUN) 37 7-22 [facility]2016-12-25 11:03:00 Test Item Value Reference Range Interpretation Comments Glucose Lvl (test code = Glucose Lvl) 119 70-99 [facility]2016-12-25 11:03:00 Test Item Value Reference Range Interpretation Comments Creatinine Lvl (test code = Creatinine 2.00 0.50-1.40 Lvl) [facility]2016-12-25 11:03:00 Test Item Value Reference Range Interpretation Comments Sodium Lvl (test code = Sodium Lvl) 142 135-145 [facility]2016-12-25 11:03:00 Test Item Value Reference Range Interpretation Comments Calcium Lvl (test code = Calcium Lvl) 8.7 8.5-10.5 [facility]2016-12-25 11:03:00 Test Item Value Reference Range Interpretation Comments CO2 (test code = CO2) 32 24-32 [facility]2016-12-25 11:03:00 Test Item Value Reference Range Interpretation Comments AGAP (test code = AGAP) 13.4 10.0-20.0 [facility] [place]anoTbuohgcJJTLZUHXNK2505-56-75 11:03:00 Test Item Value Reference Range Interpretation Comments Eosinophils (test code = 10.3 See_Comment [A utomated message] The Eosinophils) system which ge nerated this result tra nsmitted reference range : <=4.0. The reference r leo was not used to int erpret this result as normal/abnormal . [facility]anoEbuvdxlHLUMEJXDBA2533-02-78 11:03:00 Test Item Value Reference Range Interpretation Comments Basophils # (test code 0.1 See_Comment [Aut omated message] The = Basophils #) system which generated this result tra nsmitted reference range : <=0.2. The reference r leo was not used to int erpret this result as normal/abnormal . [facility]anoNmraejrPCVFJGADUS9856-33-44 11:03:00 Test Item Value Reference Range Interpretation Comments Eosinophils # (test code 0.5 See_Comment [A utomated message] The = Eosinophils #) system wh h generated this result tra nsmitted reference range : <=0.5. The reference r leo was not used to int erpret this result as normal/abnormal . [facility] [place]KspxirdHOXXEUNTVQ3654-67-74 11:03:00 Test Item Value Reference Range Interpretation Comments Monocytes # (test code 0.5 See_Comment [Aut omated message] The = Monocytes #) system which generated this result tra nsmitted reference range : <=0.8. The reference r leo was not used to int erpret this result as normal/abnormal . [facility] [place]DotagyhHXKTTGMKFS6082-16-36 11:03:00 Test Item Value Reference Range Interpretation Comments Segs-Bands # (test code = Segs-Bands #) 2.1 1.5-8.1 [facility] [place]anoOubunqmVFMLCVTWHI9156-86-38 11:03:00 Test Item Value Reference Range Interpretation Comments Basophils (test code = 1.2 See_Comment [Aut omated message] The Basophils) system which ge nerated this result tra nsmitted reference range : <=1.0. The reference r leo was not used to int erpret this result as normal/abnormal . [facility] [place]anoMwlanbvBEIUNQEQZR1463-75-58 11:03:00 Test Item Value Reference Range Interpretation Comments Lymphocytes # (test code = Lymphocytes 1.9 1.0-5.5 #) [facility] [place]anoWabxdleJTGVNPIQGZ7887-42-11 11:03:00 Test Item Value Reference Range Interpretation Comments Segs (test code = Segs) 42.5 45.0-75.0 [facility] [place]anoHhchhtiRVYNGTQNXM2884-20-02 11:03:00 Test Item Value Reference Range Interpretation Comments Lymphocytes (test code = Lymphocytes) 37.0 20.0-40.0 [facility] [place]anoHjlacgcOWOLMGNIVY7307-62-14 11:03:00 Test Item Value Reference Range Interpretation Comments Monocytes (test code = Monocytes) 9.0 2.0-12.0 [facility] [place]anoJutbnurIRMCKXBRMJ2972-10-06 11:03:00 Test Item Value Reference Range Interpretation Comments MPV (test code = MPV) 9.8 7.4-10.4 [facility] [place]anoAtpxfmwAKWJEAUTKB5117-98-47 11:03:00 Test Item Value Reference Range Interpretation Comments WBC (test code = WBC) 5.0 3.7-10.4 [facility] [place]anoUzskwomGBVBFNMZSU6024-59-78 11:03:00 Test Item Value Reference Range Interpretation Comments RBC (test code = RBC) 3.57 4.20-5.40 [facility] [place]anoMialqyeBLCKRWGUQQ8416-29-15 11:03:00 Test Item Value Reference Range Interpretation Comments Hgb (test code = Hgb) 9.4 12.0-16.0 [facility] [place]anoEhfbjsiUTMQHOVQSC1562-47-28 11:03:00 Test Item Value Reference Range Interpretation Comments Hct (test code = Hct) 28.5 36.0-48.0 [facility] [place]anoGgdqdakPESQYPSDVI1294-37-75 11:03:00 Test Item Value Reference Range Interpretation Comments Platelet (test code = Platelet) 183 133-450 [facility] [place]anoOehctkoBWJQLHFGRM8416-00-68 11:03:00 Test Item Value Reference Range Interpretation Comments MCV (test code = MCV) 79.9 80.0-98.0 [facility] [place]anoIreonoiKBXMFLFDCV2569-21-13 11:03:00 Test Item Value Reference Range Interpretation Comments MCH (test code = MCH) 26.3 pg 27.0-31.0 [facility] [place]anoWmwudfvVRFAKCVXWW1685-43-40 11:03:00 Test Item Value Reference Range Interpretation Comments MCHC (test code = MCHC) 33.0 32.0-36.0 [facility] [place]anoCuxrtifPSGFGTZMGM4445-89-87 11:03:00 Test Item Value Reference Range Interpretation Comments RDW (test code = RDW) 15.9 11.5-14.5 [facility]2016-12-25 11:03:00 Test Item Value Reference Range Interpretation Comments Phosphorus (test code = Phosphorus) 4.8 2.5-4.5 [facility]2016-12-25 11:03:00 Test Item Value Reference Range Interpretation Comments Magnesium Lvl (test code = Magnesium 2.0 1.8-2.4 Lvl) [facility]2016-12-25 11:03:00 Test Item Value Reference Range Interpretation Comments eGFR (test code = eGFR) 32 [facility]2016-12-25 11:03:00 Test Item Value Reference Range Interpretation Comments Chloride Lvl (test code = Chloride Lvl) 101 95-109 [facility]2016-12-25 11:03:00 Test Item Value Reference Range Interpretation Comments Potassium Lvl (test code = Potassium 4.4 3.5-5.1 Lvl) [facility]2016-12-25 11:03:00 Test Item Value Reference Range Interpretation Comments BUN (test code = BUN) 37 7-22 [facility]2016-12-25 11:03:00 Test Item Value Reference Range Interpretation Comments Glucose Lvl (test code = Glucose Lvl) 119 70-99 [facility]2016-12-25 11:03:00 Test Item Value Reference Range Interpretation Comments Creatinine Lvl (test code = Creatinine 2.00 0.50-1.40 Lvl) [facility]2016-12-25 11:03:00 Test Item Value Reference Range Interpretation Comments Sodium Lvl (test code = Sodium Lvl) 142 135-145 [facility]2016-12-25 11:03:00 Test Item Value Reference Range Interpretation Comments Calcium Lvl (test code = Calcium Lvl) 8.7 8.5-10.5 [facility]2016-12-25 11:03:00 Test Item Value Reference Range Interpretation Comments CO2 (test code = CO2) 32 24-32 [facility]2016-12-25 11:03:00 Test Item Value Reference Range Interpretation Comments AGAP (test code = AGAP) 13.4 10.0-20.0 [facility] [place]anoKbkdyblVKFPNNAOBT6923-37-42 11:03:00 Test Item Value Reference Range Interpretation Comments Eosinophils (test code = 10.3 See_Comment [A utomated message] The Eosinophils) system which ge nerated this result tra nsmitted reference range : <=4.0. The reference r leo was not used to int erpret this result as normal/abnormal . [facility] [place]anoRdifwijANBJRQCLSD2822-46-51 11:03:00 Test Item Value Reference Range Interpretation Comments Basophils # (test code 0.1 See_Comment [Aut omated message] The = Basophils #) system which generated this result tra nsmitted reference range : <=0.2. The reference r leo was not used to int erpret this result as normal/abnormal . [facility] [place]anoLjsgjkaZUYGSIJNWP6344-45-64 11:03:00 Test Item Value Reference Range Interpretation Comments Eosinophils # (test code 0.5 See_Comment [A utomated message] The = Eosinophils #) system whic h generated this result tra nsmitted reference range : <=0.5. The reference r leo was not used to int erpret this result as normal/abnormal . [facility] [place]anoOuuceuhPUDLEIJWOH4069-67-09 11:03:00 Test Item Value Reference Range Interpretation Comments Monocytes # (test code 0.5 See_Comment [Aut omated message] The = Monocytes #) system which generated this result tra nsmitted reference range : <=0.8. The reference r leo was not used to int erpret this result as normal/abnormal . [facility] [place]anoJndmixzRRIWGLYTFE4010-03-53 11:03:00 Test Item Value Reference Range Interpretation Comments Segs-Bands # (test code = Segs-Bands #) 2.1 1.5-8.1 [facility] [place]anoZekxexiWFLVCMHIKZ4254-91-16 11:03:00 Test Item Value Reference Range Interpretation Comments Basophils (test code = 1.2 See_Comment [Aut omated message] The Basophils) system which ge nerated this result tra nsmitted reference range : <=1.0. The reference r leo was not used to int erpret this result as normal/abnormal . [facility] [place]anoQulvymiLCOHFTHHMK6289-21-29 11:03:00 Test Item Value Reference Range Interpretation Comments Lymphocytes # (test code = Lymphocytes 1.9 1.0-5.5 #) [facility] [place]OjzbzfqOGPAYWEALM2337-27-23 11:03:00 Test Item Value Reference Range Interpretation Comments Segs (test code = Segs) 42.5 45.0-75.0 [facility] [place]anoPtzrblxPRJZBQMFVB1285-26-37 11:03:00 Test Item Value Reference Range Interpretation Comments Lymphocytes (test code = Lymphocytes) 37.0 20.0-40.0 [facility] [place]anoCnibwlcLVEHIOQJJK9404-29-69 11:03:00 Test Item Value Reference Range Interpretation Comments Monocytes (test code = Monocytes) 9.0 2.0-12.0 [facility] [place]XbextdwVWHWONZELV5728-90-81 11:03:00 Test Item Value Reference Range Interpretation Comments MPV (test code = MPV) 9.8 7.4-10.4 [facility] [place]anoErubxmoCJVMOARBVK5922-48-03 11:03:00 Test Item Value Reference Range Interpretation Comments WBC (test code = WBC) 5.0 3.7-10.4 [facility] [place]OgstgquOOKVONWEJO8009-79-89 11:03:00 Test Item Value Reference Range Interpretation Comments RBC (test code = RBC) 3.57 4.20-5.40 [facility] [place]anoHvhmkiuQXDQHGIWJP8710-72-62 11:03:00 Test Item Value Reference Range Interpretation Comments Hgb (test code = Hgb) 9.4 12.0-16.0 [facility] [place]XjswphoQCMCRALXKA8809-88-20 11:03:00 Test Item Value Reference Range Interpretation Comments Hct (test code = Hct) 28.5 36.0-48.0 [facility] [place]anoRmtcswaLVGNXRMILL8281-14-84 11:03:00 Test Item Value Reference Range Interpretation Comments Platelet (test code = Platelet) 183 133-450 [facility] [place]KmixwwyURLSIRRXIY3331-89-22 11:03:00 Test Item Value Reference Range Interpretation Comments MCV (test code = MCV) 79.9 80.0-98.0 [facility] [place]anoFapzdmnVWVPGQZRNP4326-62-39 11:03:00 Test Item Value Reference Range Interpretation Comments MCH (test code = MCH) 26.3 pg 27.0-31.0 [facility] [place]anoCxyaagbAOOLPYWYTZ5156-78-98 11:03:00 Test Item Value Reference Range Interpretation Comments MCHC (test code = MCHC) 33.0 32.0-36.0 [facility] [place]anoRxwcxgpSRUJWVSWKR0685-02-35 11:03:00 Test Item Value Reference Range Interpretation Comments RDW (test code = RDW) 15.9 11.5-14.5 [facility]2016-12-25 11:03:00 Test Item Value Reference Range Interpretation Comments Phosphorus (test code = Phosphorus) 4.8 2.5-4.5 [facility]2016-12-25 11:03:00 Test Item Value Reference Range Interpretation Comments Magnesium Lvl (test code = Magnesium 2.0 1.8-2.4 Lvl) [facility]2016-12-25 11:03:00 Test Item Value Reference Range Interpretation Comments eGFR (test code = eGFR) 32 [facility]2016-12-25 11:03:00 Test Item Value Reference Range Interpretation Comments Chloride Lvl (test code = Chloride Lvl) 101 95-109 [facility]2016-12-25 11:03:00 Test Item Value Reference Range Interpretation Comments Potassium Lvl (test code = Potassium 4.4 3.5-5.1 Lvl) [facility]2016-12-25 11:03:00 Test Item Value Reference Range Interpretation Comments BUN (test code = BUN) 37 7-22 [facility]2016-12-25 11:03:00 Test Item Value Reference Range Interpretation Comments Glucose Lvl (test code = Glucose Lvl) 119 70-99 [facility]2016-12-25 11:03:00 Test Item Value Reference Range Interpretation Comments Creatinine Lvl (test code = Creatinine 2.00 0.50-1.40 Lvl) [facility]2016-12-25 11:03:00 Test Item Value Reference Range Interpretation Comments Sodium Lvl (test code = Sodium Lvl) 142 135-145 [facility]2016-12-25 11:03:00 Test Item Value Reference Range Interpretation Comments Calcium Lvl (test code = Calcium Lvl) 8.7 8.5-10.5 [facility]2016-12-25 11:03:00 Test Item Value Reference Range Interpretation Comments CO2 (test code = CO2) 32 24-32 [facility]2016-12-25 11:03:00 Test Item Value Reference Range Interpretation Comments AGAP (test code = AGAP) 13.4 10.0-20.0 [facility] [place]anoVulqjipOUDMVNHKJK6279-58-19 11:03:00 Test Item Value Reference Range Interpretation Comments Eosinophils (test code = 10.3 See_Comment [A utomated message] The Eosinophils) system which ge nerated this result tra nsmitted reference range : <=4.0. The reference r leo was not used to int erpret this result as normal/abnormal . [facility] [place]anoNcuykawTWGQAMMCBI4211-40-56 11:03:00 Test Item Value Reference Range Interpretation Comments Basophils # (test code 0.1 See_Comment [Aut omated message] The = Basophils #) system which generated this result tra nsmitted reference range : <=0.2. The reference r leo was not used to int erpret this result as normal/abnormal . [facility] [place]IdcztifHCTUOQHNOL9345-80-73 11:03:00 Test Item Value Reference Range Interpretation Comments Eosinophils # (test code 0.5 See_Comment [A utomated message] The = Eosinophils #) system whic h generated this result tra nsmitted reference range : <=0.5. The reference r leo was not used to int erpret this result as normal/abnormal . [facility] [place]anoVarxaxiXRFVRBIPBU7656-60-44 11:03:00 Test Item Value Reference Range Interpretation Comments Monocytes # (test code 0.5 See_Comment [Aut omated message] The = Monocytes #) system which generated this result tra nsmitted reference range : <=0.8. The reference r leo was not used to int erpret this result as normal/abnormal . [facility] [place]anoMqlkojrQWZWNUQWRQ9799-09-07 11:03:00 Test Item Value Reference Range Interpretation Comments Segs-Bands # (test code = Segs-Bands #) 2.1 1.5-8.1 [facility] [place]anoMmqbavpCNEOXSCVKN7648-25-48 11:03:00 Test Item Value Reference Range Interpretation Comments Basophils (test code = 1.2 See_Comment [Aut omated message] The Basophils) system which ge nerated this result tra nsmitted reference range : <=1.0. The reference r leo was not used to int erpret this result as normal/abnormal . [facility] [place]anoJhobgepQKIOJPEDAA1638-52-71 11:03:00 Test Item Value Reference Range Interpretation Comments Lymphocytes # (test code = Lymphocytes 1.9 1.0-5.5 #) [facility] [place]anoZzwbkpyRBBFLTHDHH9153-68-77 11:03:00 Test Item Value Reference Range Interpretation Comments Segs (test code = Segs) 42.5 45.0-75.0 [facility] [place]anoAmorwufHOMBUABFDU3812-18-03 11:03:00 Test Item Value Reference Range Interpretation Comments Lymphocytes (test code = Lymphocytes) 37.0 20.0-40.0 [facility] [place]anoQsyamkkOXTNTAIBPF7700-17-18 11:03:00 Test Item Value Reference Range Interpretation Comments Monocytes (test code = Monocytes) 9.0 2.0-12.0 [facility] [place]anoEmjufpcVTZXQMDART8599-12-55 11:03:00 Test Item Value Reference Range Interpretation Comments MPV (test code = MPV) 9.8 7.4-10.4 [facility] [place]anoShivwaqOARPJWRBTD4152-36-03 11:03:00 Test Item Value Reference Range Interpretation Comments WBC (test code = WBC) 5.0 3.7-10.4 [facility] [place]anoFjxhlafRTGEBNDWDN9276-70-67 11:03:00 Test Item Value Reference Range Interpretation Comments RBC (test code = RBC) 3.57 4.20-5.40 [facility] [place]anoUbatcfoQUZNCNOHBG6537-71-35 11:03:00 Test Item Value Reference Range Interpretation Comments Hgb (test code = Hgb) 9.4 12.0-16.0 [facility] [place]anoQpaoldtVMIQMINWAU2467-27-33 11:03:00 Test Item Value Reference Range Interpretation Comments Hct (test code = Hct) 28.5 36.0-48.0 [facility] [place]anoEbxpkgwOZQMYKLYKX7499-79-53 11:03:00 Test Item Value Reference Range Interpretation Comments Platelet (test code = Platelet) 183 133-450 [facility] [place]anoBglzkwlZQKUKGIHOD3981-78-16 11:03:00 Test Item Value Reference Range Interpretation Comments MCV (test code = MCV) 79.9 80.0-98.0 [facility] [place]anoGlrafsnGAYRDCOJQP3243-20-58 11:03:00 Test Item Value Reference Range Interpretation Comments MCH (test code = MCH) 26.3 pg 27.0-31.0 [facility] [place]anoYscdkxmYNBSZSGZTL8316-33-16 11:03:00 Test Item Value Reference Range Interpretation Comments MCHC (test code = MCHC) 33.0 32.0-36.0 [facility] [place]anoCluhfqrOEDIHQTQZR3174-34-60 11:03:00 Test Item Value Reference Range Interpretation [...] (test code = U Protein) 133.1 [facility]2016-12-24 10:26:00 Test Item Value Reference Range Interpretation Comments U Prot/Creat (test code = U Prot/Creat) 6.9 [facility]2016-12-24 10:26:00 Test Item Value Reference Range Interpretation Comments U Creatinine (test code = U Creatinine) 19.30 [facility]2016-12-24 10:26:00 Test Item Value Reference Range Interpretation Comments U Protein (test code = U Protein) 133.1 [facility]2016-12-24 10:26:00 Test Item Value Reference Range Interpretation Comments U Prot/Creat (test code = U Prot/Creat) 6.9 [facility]2016-12-24 10:26:00 Test Item Value Reference Range Interpretation Comments U Creatinine (test code = U Creatinine) 19.30 [facility]2016-12-24 10:26:00 Test Item Value Reference Range Interpretation Comments U Protein (test code = U Protein) 133.1 [facility]2016-12-24 10:26:00 Test Item Value Reference Range Interpretation Comments U Prot/Creat (test code = U Prot/Creat) 6.9 [facility]2016-12-24 10:26:00 Test Item Value Reference Range Interpretation Comments U Creatinine (test code = U Creatinine) 19.30 [facility]2016-12-24 10:26:00 Test Item Value Reference Range Interpretation Comments U Protein (test code = U Protein) 133.1 [facility]2016-12-24 10:26:00 Test Item Value Reference Range Interpretation Comments U Prot/Creat (test code = U Prot/Creat) 6.9 [facility]2016-12-24 10:26:00 Test Item Value Reference Range Interpretation Comments U Creatinine (test code = U Creatinine) 19.30 [facility]2016-12-24 10:26:00 Test Item Value Reference Range Interpretation Comments U Protein (test code = U Protein) 133.1 [facility] [place]anoLnpetwrPDEULLSOAP3920-28-49 09:20:00 Test Item Value Reference Range Interpretation Comments MPV (test code = MPV) 9.7 7.4-10.4 [facility] [place]anoIqpszyzMGPUIUPPBI2014-05-91 09:20:00 Test Item Value Reference Range Interpretation Comments Platelet (test code = Platelet) 184 133-450 [facility] [place]anoTneudcuRXWRFEWLDJ7373-98-14 09:20:00 Test Item Value Reference Range Interpretation Comments RDW (test code = RDW) 15.9 11.5-14.5 [facility] [place]anoNuuoopfHTERCKXGIP7717-90-19 09:20:00 Test Item Value Reference Range Interpretation Comments MCV (test code = MCV) 79.3 80.0-98.0 [facility] [place]anoNzgufkfWBAHBJAMAQ5279-91-68 09:20:00 Test Item Value Reference Range Interpretation Comments MCHC (test code = MCHC) 33.0 32.0-36.0 [facility] [place]anoKpgorbpKHQTLAPXYK0642-79-07 09:20:00 Test Item Value Reference Range Interpretation Comments MCH (test code = MCH) 26.2 pg 27.0-31.0 [facility] [place]anoFmtpysxNIJFYDYHBZ7252-46-67 09:20:00 Test Item Value Reference Range Interpretation Comments Hct (test code = Hct) 29.4 36.0-48.0 [facility] [place]anoDhostcsSFOAQBBRTQ8406-52-76 09:20:00 Test Item Value Reference Range Interpretation Comments Hgb (test code = Hgb) 9.7 12.0-16.0 [facility] [place]anoGlvqqqxGEIVJAMHST0017-61-32 09:20:00 Test Item Value Reference Range Interpretation Comments RBC (test code = RBC) 3.70 4.20-5.40 [facility] [place]anoSptrwpyWUCVNOQMJB8361-64-39 09:20:00 Test Item Value Reference Range Interpretation Comments WBC (test code = WBC) 5.7 3.7-10.4 [facility] [place]anoGppemugNBMRRUSVBU1225-67-32 09:20:00 Test Item Value Reference Range Interpretation Comments Basophils # (test code 0.1 See_Comment [Aut omated message] The = Basophils #) system which generated this result tra nsmitted reference range : <=0.2. The reference r leo was not used to int erpret this result as normal/abnormal . [facility] [place]anoXbtfekoTGVLPLFOHK9434-94-14 09:20:00 Test Item Value Reference Range Interpretation Comments Lymphocytes # (test code = Lymphocytes 2.2 1.0-5.5 #) [facility] [place]anoDymidulVFXYQRGXSI6784-07-56 09:20:00 Test Item Value Reference Range Interpretation Comments Eosinophils # (test code 0.5 See_Comment [A utomated message] The = Eosinophils #) system wh h generated this result tra nsmitted reference range : <=0.5. The reference r leo was not used to int erpret this result as normal/abnormal . [facility] [place]anoLtbttugTRRJYUOGVP3019-47-69 09:20:00 Test Item Value Reference Range Interpretation Comments Monocytes # (test code 0.5 See_Comment [Aut omated message] The = Monocytes #) system which generated this result tra nsmitted reference range : <=0.8. The reference r leo was not used to int erpret this result as normal/abnormal . [facility] [place]anoMmkauaeLPQLBSYYCR4553-37-53 09:20:00 Test Item Value Reference Range Interpretation Comments Basophils (test code = 1.1 See_Comment [Aut omated message] The Basophils) system which ge nerated this result tra nsmitted reference range : <=1.0. The reference r leo was not used to int erpret this result as normal/abnormal . [facility] [place]anoQjcobnjGGFAYUAUPM0685-21-57 09:20:00 Test Item Value Reference Range Interpretation Comments Segs-Bands # (test code = Segs-Bands #) 2.3 1.5-8.1 [facility] [place]anoKxifzybEHWAUNYTVJ6930-53-95 09:20:00 Test Item Value Reference Range Interpretation Comments Eosinophils (test code = 9.5 See_Comment [A utomated message] The Eosinophils) system which ge nerated this result tra nsmitted reference range : <=4.0. The reference r leo was not used to int erpret this result as normal/abnormal . [facility] [place]anoXacqzggBBNSFKVXIK4244-07-36 09:20:00 Test Item Value Reference Range Interpretation Comments Monocytes (test code = Monocytes) 9.0 2.0-12.0 [facility] [place]anoGcewysjMMLWEIVTZS6880-67-74 09:20:00 Test Item Value Reference Range Interpretation Comments Lymphocytes (test code = Lymphocytes) 38.9 20.0-40.0 [facility] [place]anoPxcvxddLSETAEFFJM9556-79-64 09:20:00 Test Item Value Reference Range Interpretation Comments Segs (test code = Segs) 41.5 45.0-75.0 [facility] [place]anoKigilirAKYOORHYXG7340-87-87 09:20:00 Test Item Value Reference Range Interpretation Comments MPV (test code = MPV) 9.7 7.4-10.4 [facility] [place]anoEvcakrmDBDPSFHDTY6841-72-79 09:20:00 Test Item Value Reference Range Interpretation Comments Platelet (test code = Platelet) 184 133-450 [facility] [place]anoXajyciwXVCGAUWEWB3584-70-48 09:20:00 Test Item Value Reference Range Interpretation Comments RDW (test code = RDW) 15.9 11.5-14.5 [facility] [place]anoBixfoghIDDECLJLUY1659-55-82 09:20:00 Test Item Value Reference Range Interpretation Comments MCV (test code = MCV) 79.3 80.0-98.0 [facility] [place]anoBymjmxfYVYZHIYXWV2198-81-37 09:20:00 Test Item Value Reference Range Interpretation Comments MCHC (test code = MCHC) 33.0 32.0-36.0 [facility] [place]anoVvwbrebMHCAOXEIAM4477-31-45 09:20:00 Test Item Value Reference Range Interpretation Comments MCH (test code = MCH) 26.2 pg 27.0-31.0 [facility] [place]anoZhfvbmbAXJVUTLAGP0367-53-34 09:20:00 Test Item Value Reference Range Interpretation Comments Hct (test code = Hct) 29.4 36.0-48.0 [facility] [place]anoQowhjurBVNXVSDRUJ4789-34-82 09:20:00 Test Item Value Reference Range Interpretation Comments Hgb (test code = Hgb) 9.7 12.0-16.0 [facility] [place]anoWfeztbmOXMRTUHXKS8152-15-24 09:20:00 Test Item Value Reference Range Interpretation Comments RBC (test code = RBC) 3.70 4.20-5.40 [facility] [place]anoBelfehkYWFAYWDFER1757-49-01 09:20:00 Test Item Value Reference Range Interpretation Comments WBC (test code = WBC) 5.7 3.7-10.4 [facility] [place]anoNbjlhyxQFWMWWDDXH0236-67-34 09:20:00 Test Item Value Reference Range Interpretation Comments Basophils # (test code 0.1 See_Comment [Aut omated message] The = Basophils #) system which generated this result tra nsmitted reference range : <=0.2. The reference r leo was not used to int erpret this result as normal/abnormal . [facility]anoDhespmlQOVIEVSXOW0247-23-99 09:20:00 Test Item Value Reference Range Interpretation Comments Lymphocytes # (test code = Lymphocytes 2.2 1.0-5.5 #) [facility]anoIvaqsqaBNEQSQUSEX4149-92-24 09:20:00 Test Item Value Reference Range Interpretation Comments Eosinophils # (test code 0.5 See_Comment [A utomated message] The = Eosinophils #) system whic h generated this result tra nsmitted reference range : <=0.5. The reference r leo was not used to int erpret this result as normal/abnormal . [facility] [place]anoOwvfrifCYVBNHAKJR8316-38-38 09:20:00 Test Item Value Reference Range Interpretation Comments Monocytes # (test code 0.5 See_Comment [Aut omated message] The = Monocytes #) system which generated this result tra nsmitted reference range : <=0.8. The reference r leo was not used to int erpret this result as normal/abnormal . [facility]anoQhmcxcsMMVKEWOUSM7200-34-23 09:20:00 Test Item Value Reference Range Interpretation Comments Basophils (test code = 1.1 See_Comment [Aut omated message] The Basophils) system which ge nerated this result tra nsmitted reference range : <=1.0. The reference r leo was not used to int erpret this result as normal/abnormal . [facility]TnptlyfDIJWMEKWWU8083-07-22 09:20:00 Test Item Value Reference Range Interpretation Comments Segs-Bands # (test code = Segs-Bands #) 2.3 1.5-8.1 [facility]anoFinypejCMLRXCFIAC4670-44-19 09:20:00 Test Item Value Reference Range Interpretation Comments Eosinophils (test code = 9.5 See_Comment [A utomated message] The Eosinophils) system which ge nerated this result tra nsmitted reference range : <=4.0. The reference r leo was not used to int erpret this result as normal/abnormal . [facility]anoTdlhgvbAECMYZRZKA9575-94-94 09:20:00 Test Item Value Reference Range Interpretation Comments Monocytes (test code = Monocytes) 9.0 2.0-12.0 [facility]anoIvwrlrxHNWVOKBSRM5020-02-71 09:20:00 Test Item Value Reference Range Interpretation Comments Lymphocytes (test code = Lymphocytes) 38.9 20.0-40.0 [facility]anoFamklhhJMVUVQZQTM1850-80-50 09:20:00 Test Item Value Reference Range Interpretation Comments Segs (test code = Segs) 41.5 45.0-75.0 [place] 140206-12-24 09:20:00 Test Item Value Reference Range Interpretation Comments MPV (test code = MPV) 9.7 7.4-10.4 [place] 140206-12-24 09:20:00 Test Item Value Reference Range Interpretation Comments Platelet (test code = Platelet) 184 133-450 [facility]anoZfxwiutZSDUIPKBYT7519-50-79 09:20:00 Test Item Value Reference Range Interpretation Comments RDW (test code = RDW) 15.9 11.5-14.5 [facility]anoFflqscrJOJWCGWQSR9045-69-54 09:20:00 Test Item Value Reference Range Interpretation Comments MCV (test code = MCV) 79.3 80.0-98.0 [facility]anoDsbfmpvASWJKVJQPB5793-72-35 09:20:00 Test Item Value Reference Range Interpretation Comments MCHC (test code = MCHC) 33.0 32.0-36.0 [facility]anoXhxapktWGODFGHOBE6298-23-91 09:20:00 Test Item Value Reference Range Interpretation Comments MCH (test code = MCH) 26.2 pg 27.0-31.0 [facility]anoMiaoasaCOTHAZXZUG9668-63-88 09:20:00 Test Item Value Reference Range Interpretation Comments Hct (test code = Hct) 29.4 36.0-48.0 [facility]anoUfjcnlhVAJULIVRLG5785-07-23 09:20:00 Test Item Value Reference Range Interpretation Comments Hgb (test code = Hgb) 9.7 12.0-16.0 [place] 140206-12-24 09:20:00 Test Item Value Reference Range Interpretation Comments RBC (test code = RBC) 3.70 4.20-5.40 [place] 140206-12-24 09:20:00 Test Item Value Reference Range Interpretation Comments WBC (test code = WBC) 5.7 3.7-10.4 [facility]anoTbjacyrJXZERVYQPI1413-67-12 09:20:00 Test Item Value Reference Range Interpretation Comments Basophils # (test code 0.1 See_Comment [Aut omated message] The = Basophils #) system which generated this result tra nsmitted reference range : <=0.2. The reference r leo was not used to int erpret this result as normal/abnormal . [facility]anoDhzpxhcRDXPMGXZPJ8649-24-20 09:20:00 Test Item Value Reference Range Interpretation Comments Lymphocytes # (test code = Lymphocytes 2.2 1.0-5.5 #) [facility]anoZzaasqiCEPKNAQOOR5373-77-01 09:20:00 Test Item Value Reference Range Interpretation Comments Eosinophils # (test code 0.5 See_Comment [A utomated message] The = Eosinophils #) system whic h generated this result tra nsmitted reference range : <=0.5. The reference r leo was not used to int erpret this result as normal/abnormal . [facility]anoKenloucCTOKMFMSGO7790-78-17 09:20:00 Test Item Value Reference Range Interpretation Comments Monocytes # (test code 0.5 See_Comment [Aut omated message] The = Monocytes #) system which generated this result tra nsmitted reference range : <=0.8. The reference r leo was not used to int erpret this result as normal/abnormal . [facility]anoXxrouvbPTVKEMDUEX7282-83-10 09:20:00 Test Item Value Reference Range Interpretation Comments Basophils (test code = 1.1 See_Comment [Aut omated message] The Basophils) system which ge nerated this result tra nsmitted reference range : <=1.0. The reference r leo was not used to int erpret this result as normal/abnormal . [facility]anoYdxpuioQWKWWZGYFX6028-00-86 09:20:00 Test Item Value Reference Range Interpretation Comments Segs-Bands # (test code = Segs-Bands #) 2.3 1.5-8.1 [facility]anoDiizobdPNQURVDAPZ0941-77-18 09:20:00 Test Item Value Reference Range Interpretation Comments Eosinophils (test code = 9.5 See_Comment [A utomated message] The Eosinophils) system which ge nerated this result tra nsmitted reference range : <=4.0. The reference r leo was not used to int erpret this result as normal/abnormal . [facility]anoPdczyajISLHFRTISX7840-58-04 09:20:00 Test Item Value Reference Range Interpretation Comments Monocytes (test code = Monocytes) 9.0 2.0-12.0 [place] 140206-12-24 09:20:00 Test Item Value Reference Range Interpretation Comments Lymphocytes (test code = Lymphocytes) 38.9 20.0-40.0 [facility]anoUjuputdTHVOMNZZPC6095-11-87 09:20:00 Test Item Value Reference Range Interpretation Comments Segs (test code = Segs) 41.5 45.0-75.0 [facility]anoGgdkjtbCUAFBMTBJH0226-67-57 09:20:00 Test Item Value Reference Range Interpretation Comments MPV (test code = MPV) 9.7 7.4-10.4 [place] 140206-12-24 09:20:00 Test Item Value Reference Range Interpretation Comments Platelet (test code = Platelet) 184 133-450 [facility]anoQeshwalAFZHAUAIEA0970-84-54 09:20:00 Test Item Value Reference Range Interpretation Comments RDW (test code = RDW) 15.9 11.5-14.5 [facility]anoDtmjlafTZKFFQKGTA8910-51-93 09:20:00 Test Item Value Reference Range Interpretation Comments MCV (test code = MCV) 79.3 80.0-98.0 [facility]anoMjfhmoxOJHVVBITYV0339-92-09 09:20:00 Test Item Value Reference Range Interpretation Comments MCHC (test code = MCHC) 33.0 32.0-36.0 [facility]anoMvshjsqCLLHWFZNKA2467-83-35 09:20:00 Test Item Value Reference Range Interpretation Comments MCH (test code = MCH) 26.2 pg 27.0-31.0 [facility]anoWmkbmmdGBTIZNDIGV1681-26-01 09:20:00 Test Item Value Reference Range Interpretation Comments Hct (test code = Hct) 29.4 36.0-48.0 [facility]anoDkmtsflYJAJSKSUAS8854-19-94 09:20:00 Test Item Value Reference Range Interpretation Comments Hgb (test code = Hgb) 9.7 12.0-16.0 [place] 140206-12-24 09:20:00 Test Item Value Reference Range Interpretation Comments RBC (test code = RBC) 3.70 4.20-5.40 [facility]anoHqrpefdDKIJEYQAVQ1599-10-55 09:20:00 Test Item Value Reference Range Interpretation Comments WBC (test code = WBC) 5.7 3.7-10.4 [facility]anoPprvvqpRSPLYPXSBW9194-97-47 09:20:00 Test Item Value Reference Range Interpretation Comments Basophils # (test code 0.1 See_Comment [Aut omated message] The = Basophils #) system which generated this result tra nsmitted reference range : <=0.2. The reference r leo was not used to int erpret this result as normal/abnormal . [facility]anoEuqekwmRPLRLMIPJX8259-25-17 09:20:00 Test Item Value Reference Range Interpretation Comments Lymphocytes # (test code = Lymphocytes 2.2 1.0-5.5 #) [facility]anoLqimchbEHLIZDAMXO3063-77-01 09:20:00 Test Item Value Reference Range Interpretation Comments Eosinophils # (test code 0.5 See_Comment [A utomated message] The = Eosinophils #) system wh h generated this result tra nsmitted reference range : <=0.5. The reference r leo was not used to int erpret this result as normal/abnormal . [facility]anoVdprwlyNBDAGLKMUP0144-11-68 09:20:00 Test Item Value Reference Range Interpretation Comments Monocytes # (test code 0.5 See_Comment [Aut omated message] The = Monocytes #) system which generated this result tra nsmitted reference range : <=0.8. The reference r leo was not used to int erpret this result as normal/abnormal . [facility]anoFkoukcuFZTCJBFQFV9243-49-39 09:20:00 Test Item Value Reference Range Interpretation Comments Basophils (test code = 1.1 See_Comment [Aut omated message] The Basophils) system which ge nerated this result tra nsmitted reference range : <=1.0. The reference r leo was not used to int erpret this result as normal/abnormal . [facility]anoDsskuzjBBQFXHOGBN5315-60-67 09:20:00 Test Item Value Reference Range Interpretation Comments Segs-Bands # (test code = Segs-Bands #) 2.3 1.5-8.1 [facility]anoHsojgzoCSEFIDSNPJ1573-66-19 09:20:00 Test Item Value Reference Range Interpretation Comments Eosinophils (test code = 9.5 See_Comment [A utomated message] The Eosinophils) system which ge nerated this result tra nsmitted reference range : <=4.0. The reference r leo was not used to int erpret this result as normal/abnormal . [facility]anoTqswuykXZZPOZMCHA4562-32-92 09:20:00 Test Item Value Reference Range Interpretation Comments Monocytes (test code = Monocytes) 9.0 2.0-12.0 [facility]anoAkzfkarVCCPRVXIVA9710-69-72 09:20:00 Test Item Value Reference Range Interpretation Comments Lymphocytes (test code = Lymphocytes) 38.9 20.0-40.0 [facility]anoLlevpazQQPVHZYDYW6341-77-79 09:20:00 Test Item Value Reference Range Interpretation Comments Segs (test code = Segs) 41.5 45.0-75.0 [facility]anoTstopqqKHWMVMIKAJ7151-22-90 09:20:00 Test Item Value Reference Range Interpretation Comments MPV (test code = MPV) 9.7 7.4-10.4 [facility]anoEyiwpxpMTFALHKZET3247-04-54 09:20:00 Test Item Value Reference Range Interpretation Comments Platelet (test code = Platelet) 184 133-450 [facility]anoTyeuqfwZOYNPZWJTR2145-17-89 09:20:00 Test Item Value Reference Range Interpretation Comments RDW (test code = RDW) 15.9 11.5-14.5 [facility]anoRlrnpohBOVQXDBOVA3113-53-98 09:20:00 Test Item Value Reference Range Interpretation Comments MCV (test code = MCV) 79.3 80.0-98.0 [facility]anoYynggdfVLSTGISEOQ4432-09-71 09:20:00 Test Item Value Reference Range Interpretation Comments MCHC (test code = MCHC) 33.0 32.0-36.0 [facility]anoFppdxytDNONJXODAJ7568-68-08 09:20:00 Test Item Value Reference Range Interpretation Comments MCH (test code = MCH) 26.2 pg 27.0-31.0 [facility]anoDfnentvQHJQTANRBP1862-75-73 09:20:00 Test Item Value Reference Range Interpretation Comments Hct (test code = Hct) 29.4 36.0-48.0 [facility]anoSpndoqsMMHWIMRVST1901-32-63 09:20:00 Test Item Value Reference Range Interpretation Comments Hgb (test code = Hgb) 9.7 12.0-16.0 [place] 140206-12-24 09:20:00 Test Item Value Reference Range Interpretation Comments RBC (test code = RBC) 3.70 4.20-5.40 [facility]anoIouwyflIMFORTXSNO4751-96-97 09:20:00 Test Item Value Reference Range Interpretation Comments WBC (test code = WBC) 5.7 3.7-10.4 [facility]anoXapukcwJHZITFTHUU1344-68-51 09:20:00 Test Item Value Reference Range Interpretation Comments Basophils # (test code 0.1 See_Comment [Aut omated message] The = Basophils #) system which generated this result tra nsmitted reference range : <=0.2. The reference r leo was not used to int erpret this result as normal/abnormal . [facility]anoEsogjrlKHVHSUNTCQ2854-83-11 09:20:00 Test Item Value Reference Range Interpretation Comments Lymphocytes # (test code = Lymphocytes 2.2 1.0-5.5 #) [facility]anoYxxqtdcPPHNRBGKNE5590-38-74 09:20:00 Test Item Value Reference Range Interpretation Comments Eosinophils # (test code 0.5 See_Comment [A utomated message] The = Eosinophils #) system whic h generated this result tra nsmitted reference range : <=0.5. The reference r leo was not used to int erpret this result as normal/abnormal . [facility]anoMblighyFKEVLZBWYI3694-78-01 09:20:00 Test Item Value Reference Range Interpretation Comments Monocytes # (test code 0.5 See_Comment [Aut omated message] The = Monocytes #) system which generated this result tra nsmitted reference range : <=0.8. The reference r leo was not used to int erpret this result as normal/abnormal . [facility]anoLstxoyyYMTCXZFJHT8834-77-65 09:20:00 Test Item Value Reference Range Interpretation Comments Basophils (test code = 1.1 See_Comment [Aut omated message] The Basophils) system which ge nerated this result tra nsmitted reference range : <=1.0. The reference r leo was not used to int erpret this result as normal/abnormal . [facility]anoTwdyjhtUFTYRJFANV3854-99-93 09:20:00 Test Item Value Reference Range Interpretation Comments Segs-Bands # (test code = Segs-Bands #) 2.3 1.5-8.1 [facility]anoNevxwouWXPMDBMJCW8050-04-78 09:20:00 Test Item Value Reference Range Interpretation Comments Eosinophils (test code = 9.5 See_Comment [A utomated message] The Eosinophils) system which ge nerated this result tra nsmitted reference range : <=4.0. The reference r leo was not used to int erpret this result as normal/abnormal . [facility]anoSvzqdmyVZMOYJGOCY3348-19-71 09:20:00 Test Item Value Reference Range Interpretation Comments Monocytes (test code = Monocytes) 9.0 2.0-12.0 [facility]anoUxbmcmoWSUWLDRROR2647-32-65 09:20:00 Test Item Value Reference Range Interpretation Comments Lymphocytes (test code = Lymphocytes) 38.9 20.0-40.0 [facility]anoWrjcldvBBSWJNPGCC1497-09-21 09:20:00 Test Item Value Reference Range Interpretation Comments Segs (test code = Segs) 41.5 45.0-75.0 [facility]2016-12-24 06:34:00 Test Item Value Reference Range Interpretation Comments Magnesium Lvl (test code = Magnesium 1.7 1.8-2.4 Lvl) [facility]2016-12-24 06:34:00 Test Item Value Reference Range Interpretation Comments Phosphorus (test code = Phosphorus) 4.2 2.5-4.5 [facility] CenterLbuhivuOSZYMJXKIQTM2407-84-13 06:34:00 Test Item Value Reference Range Interpretation Comments AGAP (test code = AGAP) 14.3 10.0-20.0 [facility] CenterDghsclvVWKWPQPQXXNT9502-98-54 06:34:00 Test Item Value Reference Range Interpretation Comments eGFR (test code = eGFR) 41 [facility] CenterQcuafqjNNQLCTBSIHMT1869-97-88 06:34:00 Test Item Value Reference Range Interpretation Comments Chloride Lvl (test code = Chloride Lvl) 103 95-109 [facility] CenterCzveonqMQBMVSWPNCCO7930-66-23 06:34:00 Test Item Value Reference Range Interpretation Comments Calcium Lvl (test code = Calcium Lvl) 8.5 8.5-10.5 [facility] CenterWyjwqxsCZCFRENRRHSC1568-04-72 06:34:00 Test Item Value Reference Range Interpretation Comments CO2 (test code = CO2) 32 24-32 [facility] CenterZdxppkxCVXUZFFPTDDZ3454-17-89 06:34:00 Test Item Value Reference Range Interpretation Comments Glucose Lvl (test code = Glucose Lvl) 173 70-99 [facility] CenterMuncasfORYZBAXFKXGK9453-44-01 06:34:00 Test Item Value Reference Range Interpretation Comments BUN (test code = BUN) 37 7-22 [facility] CenterEjgbqpiGUWREBATYOHD4970-05-25 06:34:00 Test Item Value Reference Range Interpretation Comments Creatinine Lvl (test code = Creatinine 1.63 0.50-1.40 Lvl) [facility] CenterYaxdlgwTWRMXQCEEOQX5602-05-25 06:34:00 Test Item Value Reference Range Interpretation Comments Potassium Lvl (test code = Potassium 4.3 3.5-5.1 Lvl) [facility] CenterOchkpdxKAFGDPGGHSZH2805-49-30 06:34:00 Test Item Value Reference Range Interpretation Comments Sodium Lvl (test code = Sodium Lvl) 145 135-145 [facility]2016-12-24 06:34:00 Test Item Value Reference Range Interpretation Comments Magnesium Lvl (test code = Magnesium 1.7 1.8-2.4 Lvl) [facility]2016-12-24 06:34:00 Test Item Value Reference Range Interpretation Comments Phosphorus (test code = Phosphorus) 4.2 2.5-4.5 [facility] CenterZozlhucUECDAORZGWSE2101-49-95 06:34:00 Test Item Value Reference Range Interpretation Comments AGAP (test code = AGAP) 14.3 10.0-20.0 [facility] CenterHcjydvrARVOZRQIXGTK4094-39-85 06:34:00 Test Item Value Reference Range Interpretation Comments eGFR (test code = eGFR) 41 [facility] CenterEijaudgZAOGWMOSMWDC9642-76-75 06:34:00 Test Item Value Reference Range Interpretation Comments Chloride Lvl (test code = Chloride Lvl) 103 95-109 [facility] CenterPdimkvhHRUSDRZMTUNY8218-72-55 06:34:00 Test Item Value Reference Range Interpretation Comments Calcium Lvl (test code = Calcium Lvl) 8.5 8.5-10.5 [facility] CenterJtojaeeFZHUULKXRFVP6086-20-66 06:34:00 Test Item Value Reference Range Interpretation Comments CO2 (test code = CO2) 32 24-32 [facility] CenterEjdsugrQTRLSFBJVYWC7875-19-81 06:34:00 Test Item Value Reference Range Interpretation Comments Glucose Lvl (test code = Glucose Lvl) 173 70-99 [facility] CenterTtblfaxQJSCHVYEVZWF7651-45-55 06:34:00 Test Item Value Reference Range Interpretation Comments BUN (test code = BUN) 37 7-22 [facility] CenterCoqkorrMBFGACLUZSKK7213-65-46 06:34:00 Test Item Value Reference Range Interpretation Comments Creatinine Lvl (test code = Creatinine 1.63 0.50-1.40 Lvl) [facility] CenterHyblqqnVVDTDZBVVCKH9874-58-97 06:34:00 Test Item Value Reference Range Interpretation Comments Potassium Lvl (test code = Potassium 4.3 3.5-5.1 Lvl) [facility] CenterFtvbxhbKDIKINGRNHJJ8542-53-50 06:34:00 Test Item Value Reference Range Interpretation Comments Sodium Lvl (test code = Sodium Lvl) 145 135-145 [facility]2016-12-24 06:34:00 Test Item Value Reference Range Interpretation Comments Magnesium Lvl (test code = Magnesium 1.7 1.8-2.4 Lvl) [facility]2016-12-24 06:34:00 Test Item Value Reference Range Interpretation Comments Phosphorus (test code = Phosphorus) 4.2 2.5-4.5 [facility] CenterZpzxfmeFUFWIVTGAEQU9717-43-24 06:34:00 Test Item Value Reference Range Interpretation Comments AGAP (test code = AGAP) 14.3 10.0-20.0 [facility] CenterXftcuxuODWNDCLBZQKU5392-97-57 06:34:00 Test Item Value Reference Range Interpretation Comments eGFR (test code = eGFR) 41 [facility] CenterOedkwulRWSMBWMADZVR3579-54-17 06:34:00 Test Item Value Reference Range Interpretation Comments Chloride Lvl (test code = Chloride Lvl) 103 95-109 [facility] CenterVawysetDOMYEQBTOPQK9969-12-50 06:34:00 Test Item Value Reference Range Interpretation Comments Calcium Lvl (test code = Calcium Lvl) 8.5 8.5-10.5 [facility] CenterVcsamyiNDDIIEHHELCV0516-98-77 06:34:00 Test Item Value Reference Range Interpretation Comments CO2 (test code = CO2) 32 24-32 [facility] CenterVaermryMARICFVZERJD8461-42-71 06:34:00 Test Item Value Reference Range Interpretation Comments Glucose Lvl (test code = Glucose Lvl) 173 70-99 [facility] CenterWuudfkqERHZNFGUJQBL0247-70-90 06:34:00 Test Item Value Reference Range Interpretation Comments BUN (test code = BUN) 37 7-22 [facility] CenterYeyazhpESTKZSQSUJFA4244-15-85 06:34:00 Test Item Value Reference Range Interpretation Comments Creatinine Lvl (test code = Creatinine 1.63 0.50-1.40 Lvl) [facility] CenterDkqcgrrUGCMUXYXHLAL7178-87-97 06:34:00 Test Item Value Reference Range Interpretation Comments Potassium Lvl (test code = Potassium 4.3 3.5-5.1 Lvl) [facility] CenterJrtfhuaQYRPDTSZHBQG9975-46-79 06:34:00 Test Item Value Reference Range Interpretation Comments Sodium Lvl (test code = Sodium Lvl) 145 135-145 [facility]2016-12-24 06:34:00 Test Item Value Reference Range Interpretation Comments Magnesium Lvl (test code = Magnesium 1.7 1.8-2.4 Lvl) [facility]2016-12-24 06:34:00 Test Item Value Reference Range Interpretation Comments Phosphorus (test code = Phosphorus) 4.2 2.5-4.5 [facility] CenterNdsmkwoQQSHNFDSHRWT3961-45-37 06:34:00 Test Item Value Reference Range Interpretation Comments AGAP (test code = AGAP) 14.3 10.0-20.0 [facility] CenterSqeommdORLXSEYDISSX8054-08-48 06:34:00 Test Item Value Reference Range Interpretation Comments eGFR (test code = eGFR) 41 [facility] CenterBqgsgkeRJRZGSASAHBB9695-77-84 06:34:00 Test Item Value Reference Range Interpretation Comments Chloride Lvl (test code = Chloride Lvl) 103 95-109 [facility] CenterQekwmdsMBCMXHEUSSTL4416-26-40 06:34:00 Test Item Value Reference Range Interpretation Comments Calcium Lvl (test code = Calcium Lvl) 8.5 8.5-10.5 [facility] CenterTakmgvcHBRUIIJFLTOH6865-26-79 06:34:00 Test Item Value Reference Range Interpretation Comments CO2 (test code = CO2) 32 24-32 [facility] CenterJbdwmxnAIFYVLKLTWUV0076-58-00 06:34:00 Test Item Value Reference Range Interpretation Comments Glucose Lvl (test code = Glucose Lvl) 173 70-99 [facility] CenterIlhtirhNHGHEUWYCVJJ1875-37-32 06:34:00 Test Item Value Reference Range Interpretation Comments BUN (test code = BUN) 37 7-22 [facility] CenterHvcqcvaWQVCWKYDHHVO0183-38-44 06:34:00 Test Item Value Reference Range Interpretation Comments Creatinine Lvl (test code = Creatinine 1.63 0.50-1.40 Lvl) [facility] CenterEtivqluMCHFSPYIJQYL0089-69-40 06:34:00 Test Item Value Reference Range Interpretation Comments Potassium Lvl (test code = Potassium 4.3 3.5-5.1 Lvl) [facility] CenterGnkngevFOLVTPZLYGRH9435-14-50 06:34:00 Test Item Value Reference Range Interpretation Comments Sodium Lvl (test code = Sodium Lvl) 145 135-145 [facility]2016-12-24 06:34:00 Test Item Value Reference Range Interpretation Comments Magnesium Lvl (test code = Magnesium 1.7 1.8-2.4 Lvl) [facility]2016-12-24 06:34:00 Test Item Value Reference Range Interpretation Comments Phosphorus (test code = Phosphorus) 4.2 2.5-4.5 [facility] CenterTxpgphfQRIBBRWUNPEG1690-60-94 06:34:00 Test Item Value Reference Range Interpretation Comments AGAP (test code = AGAP) 14.3 10.0-20.0 [facility] CenterZebjvxuCKLKOVHWZAGY4631-86-50 06:34:00 Test Item Value Reference Range Interpretation Comments eGFR (test code = eGFR) 41 [facility] CenterWpbmrtfLVRNYFATNZFV9834-95-13 06:34:00 Test Item Value Reference Range Interpretation Comments Chloride Lvl (test code = Chloride Lvl) 103 95-109 [facility] CenterOozhohtBCJOFZLTZNJR2600-99-51 06:34:00 Test Item Value Reference Range Interpretation Comments Calcium Lvl (test code = Calcium Lvl) 8.5 8.5-10.5 [facility] CenterXuqonpbHFZAIWCTLBTP4250-98-05 06:34:00 Test Item Value Reference Range Interpretation Comments CO2 (test code = CO2) 32 24-32 [facility] CenterAkjhkwxNTBOJRCTLEGM4909-66-68 06:34:00 Test Item Value Reference Range Interpretation Comments Glucose Lvl (test code = Glucose Lvl) 173 70-99 [facility] CenterEhlgbyoASDJWYYKBUUV4297-93-85 06:34:00 Test Item Value Reference Range Interpretation Comments BUN (test code = BUN) 37 7-22 [facility] CenterFehvexzMIZZXUBFBXSF0091-01-91 06:34:00 Test Item Value Reference Range Interpretation Comments Creatinine Lvl (test code = Creatinine 1.63 0.50-1.40 Lvl) [facility] CenterIynxygfNZXQURLXJEBT7765-87-43 06:34:00 Test Item Value Reference Range Interpretation Comments Potassium Lvl (test code = Potassium 4.3 3.5-5.1 Lvl) [facility] CenterScxhgszARLNMBLOEWBU2164-68-19 06:34:00 Test Item Value Reference Range Interpretation Comments Sodium Lvl (test code = Sodium Lvl) 145 135-145 [facility]2016-12-22 16:21:00 Test Item Value Reference Range Interpretation Comments Ammonia (test code = Ammonia) 48.0 [facility]2016-12-22 16:21:00 Test Item Value Reference Range Interpretation Comments Ammonia (test code = Ammonia) 48.0 [facility]2016-12-22 16:21:00 Test Item Value Reference Range Interpretation Comments Ammonia (test code = Ammonia) 48.0 [facility]2016-12-22 16:21:00 Test Item Value Reference Range Interpretation Comments Ammonia (test code = Ammonia) 48.0 [facility]2016-12-22 16:21:00 Test Item Value Reference Range Interpretation Comments Ammonia (test code = Ammonia) 48.0 [facility] TempleJevkzngFHICQVSTPR2998-62-13 14:56:00 Test Item Value Reference Range Interpretation Comments IVETTE Interp (test code Pattern appears = IVETTE Interp) Nucleolar. [facility] TemplePwcvofkWCZINBAENQ8414-52-44 14:56:00 Test Item Value Reference Range Interpretation Comments IVETTE Titer (test code = 1:40 *ABN*(06/11/16 IVETTE Titer) 8:56 AM) [facility] TempleKtkqxiuYYVRQAQJAV7424-36-33 14:56:00 Test Item Value Reference Range Interpretation Comments Hep Bs Ag (test code Negative *NA*(06/11/16 = Hep Bs Ag) 8:56 AM) [facility] TempleIzthwzrBNKNXSUBXJ6304-17-44 14:56:00 Test Item Value Reference Range Interpretation Comments Hep C Ab (test code = Negative *NA*(06/11/16 Hep C Ab) 8:56 AM) [facility] TempleQfwpcneBLQRQZYZDM5018-85-39 14:56:00 Test Item Value Reference Range Interpretation Comments Hep B Core IgM (test Negative *NA*(06/11/16 code = Hep B Core 8:56 AM) IgM) [facility] TemplePzremibXYYCGGBZGC1786-44-01 14:56:00 Test Item Value Reference Range Interpretation Comments Hep A IgM (test code Negative *NA*(06/11/16 = Hep A IgM) 8:56 AM) [facility] TemplePghxahzDVLMCGZWKR9415-07-72 14:56:00 Test Item Value Reference Range Interpretation Comments HIV Ag/Ab 4th Gen Negative *NA*(06/11/16 (test code = HIV 8:56 AM) Ag/Ab 4th Gen) [facility] TempleXtpdlixTHSBIAHKBM6950-78-86 14:56:00 Test Item Value Reference Range Interpretation Comments IVETTE (test code = IVETTE) Positive *ABN*(06/11/16 8:56 AM) [facility] TempleOipmumbMIIKJGNBIX2532-92-25 14:56:00 Test Item Value Reference Range Interpretation Comments IVETTE Interp (test code Pattern appears = IVETTE Interp) Nucleolar. [facility] TempleUmoauhyRYLCQYVZUN4795-22-28 14:56:00 Test Item Value Reference Range Interpretation Comments IVETTE Titer (test code = 1:40 *ABN*(06/11/16 IVETTE Titer) 8:56 AM) [facility] TempleAddxgbcFHMUFOCADW2495-57-87 14:56:00 Test Item Value Reference Range Interpretation Comments Hep Bs Ag (test code Negative *NA*(06/11/16 = Hep Bs Ag) 8:56 AM) [facility] TempleSzzmvriBXNYCKOIMT4369-92-89 14:56:00 Test Item Value Reference Range Interpretation Comments Hep C Ab (test code = Negative *NA*(06/11/16 Hep C Ab) 8:56 AM) [facility] TempleUaefpovLHGZMMTGVV1231-89-24 14:56:00 Test Item Value Reference Range Interpretation Comments Hep B Core IgM (test Negative *NA*(06/11/16 code = Hep B Core 8:56 AM) IgM) [facility] TempleVrtngkeZZKZFCWNNV5057-45-74 14:56:00 Test Item Value Reference Range Interpretation Comments Hep A IgM (test code Negative *NA*(06/11/16 = Hep A IgM) 8:56 AM) [facility] TempleYhljthqGOEFAZSYTN4809-41-42 14:56:00 Test Item Value Reference Range Interpretation Comments HIV Ag/Ab 4th Gen Negative *NA*(06/11/16 (test code = HIV 8:56 AM) Ag/Ab 4th Gen) [facility] TempleOverjwiWQBZLZJLFD2252-71-96 14:56:00 Test Item Value Reference Range Interpretation Comments IVETTE (test code = IVETTE) Positive *ABN*(06/11/16 8:56 AM) [facility] TempleBbumpocWTUJLOJCOL5160-57-68 14:56:00 Test Item Value Reference Range Interpretation Comments IVETTE Interp (test code Pattern appears = IVETTE Interp) Nucleolar. [facility] TempleJtjzsarTUUEPYHIDM5538-97-09 14:56:00 Test Item Value Reference Range Interpretation Comments IVETTE Titer (test code = 1:40 *ABN*(06/11/16 IVETTE Titer) 8:56 AM) [facility] TemplePvzlhewEQWRFOQRPQ1461-25-85 14:56:00 Test Item Value Reference Range Interpretation Comments Hep Bs Ag (test code Negative *NA*(06/11/16 = Hep Bs Ag) 8:56 AM) [facility] TempleLpmsvelNOHKBZCFAS1086-75-00 14:56:00 Test Item Value Reference Range Interpretation Comments Hep C Ab (test code = Negative *NA*(06/11/16 Hep C Ab) 8:56 AM) [facility] TempleImjqqqwEGUXTVRXUT9406-45-32 14:56:00 Test Item Value Reference Range Interpretation Comments Hep B Core IgM (test Negative *NA*(06/11/16 code = Hep B Core 8:56 AM) IgM) [facility] TempleSduijkgLCSMKZNWFL2990-40-45 14:56:00 Test Item Value Reference Range Interpretation Comments Hep A IgM (test code Negative *NA*(06/11/16 = Hep A IgM) 8:56 AM) [facility] TempleOluvxxwOPJPVRTGPN5618-30-02 14:56:00 Test Item Value Reference Range Interpretation Comments HIV Ag/Ab 4th Gen Negative *NA*(06/11/16 (test code = HIV 8:56 AM) Ag/Ab 4th Gen) [facility] TempleLctyuepWPFNTNIEKA8698-94-05 14:56:00 Test Item Value Reference Range Interpretation Comments IVETTE (test code = IVETTE) Positive *ABN*(06/11/16 8:56 AM) [facility] TempleLxqbfqeLYMBZTBDKC1810-47-31 14:56:00 Test Item Value Reference Range Interpretation Comments IVETTE Interp (test code Pattern appears = IVETTE Interp) Nucleolar. [facility] TempleZuzlvgmFFECPVJNJU1595-87-08 14:56:00 Test Item Value Reference Range Interpretation Comments IVETTE Titer (test code = 1:40 *ABN*(06/11/16 IVETTE Titer) 8:56 AM) [facility] TempleDohsiigLXVNBBGSYG3138-29-83 14:56:00 Test Item Value Reference Range Interpretation Comments Hep Bs Ag (test code Negative *NA*(06/11/16 = Hep Bs Ag) 8:56 AM) [facility] TempleCdstcpgJPGFNHDSSU9530-64-27 14:56:00 Test Item Value Reference Range Interpretation Comments Hep C Ab (test code = Negative *NA*(06/11/16 Hep C Ab) 8:56 AM) [facility] TempleZjgwgwmAFJYRXEZMO1847-03-29 14:56:00 Test Item Value Reference Range Interpretation Comments Hep B Core IgM (test Negative *NA*(06/11/16 code = Hep B Core 8:56 AM) IgM) [facility] TempleYiptslxFCUGRXKZNP6227-53-05 14:56:00 Test Item Value Reference Range Interpretation Comments Hep A IgM (test code Negative *NA*(06/11/16 = Hep A IgM) 8:56 AM) [facility] TempleKsaoqphGMYVCVHXPQ2910-83-62 14:56:00 Test Item Value Reference Range Interpretation Comments HIV Ag/Ab 4th Gen Negative *NA*(06/11/16 (test code = HIV 8:56 AM) Ag/Ab 4th Gen) [facility] TempleNacfyokRRRCGMXIOP3811-27-53 14:56:00 Test Item Value Reference Range Interpretation Comments IVETTE (test code = IVETTE) Positive *ABN*(06/11/16 8:56 AM) [facility] TempleBmsfqnzWZGZEJUVLF7056-81-61 14:56:00 Test Item Value Reference Range Interpretation Comments IVETTE Interp (test code Pattern appears = IVETTE Interp) Nucleolar. [facility] TempleHsscgddPVQYDDXBHL5751-28-24 14:56:00 Test Item Value Reference Range Interpretation Comments IVETTE Titer (test code = 1:40 *ABN*(06/11/16 IVETTE Titer) 8:56 AM) [facility] TempleCfwqwbtXNSEYVPEGJ0341-21-91 14:56:00 Test Item Value Reference Range Interpretation Comments Hep Bs Ag (test code Negative *NA*(06/11/16 = Hep Bs Ag) 8:56 AM) [facility] TempleLafrajfWUNSEGBEJK5202-52-30 14:56:00 Test Item Value Reference Range Interpretation Comments Hep C Ab (test code = Negative *NA*(06/11/16 Hep C Ab) 8:56 AM) [facility] TempleAkegqinIYZHHGBXGV2657-90-62 14:56:00 Test Item Value Reference Range Interpretation Comments Hep B Core IgM (test Negative *NA*(06/11/16 code = Hep B Core 8:56 AM) IgM) [facility]VFBCAZJMFP8943-[facility] 14:56:00 Test Item Value Reference Range Interpretation Comments Hep A IgM (test code Negative *NA*(06/11/16 = Hep A IgM) 8:56 AM) [facility] HospitalBrrukspIIMEHFFXHU7527-42-88 14:56:00 Test Item Value Reference Range Interpretation Comments HIV Ag/Ab 4th Gen Negative *NA*(06/11/16 (test code = HIV 8:56 AM) Ag/Ab 4th Gen) [facility]AkziruvHVOESGMQNS4809-19-68 14:56:00 Test Item Value Reference Range Interpretation Comments IVETTE (test code = IVETTE) Positive *ABN*(06/11/16 8:56 AM) [facility]2016-12-22 10:42:00 Test Item Value Reference Range Interpretation Comments Bili Total (test code = Bili Total) 0.1 0.2-1.3 [facility]2016-12-22 10:42:00 Test Item Value Reference Range Interpretation Comments Total Protein (test code = Total 5.2 6.4-8.4 Protein) [facility]2016-12-22 10:42:00 Test Item Value Reference Range Interpretation Comments Albumin Lvl (test code = Albumin Lvl) 1.6 3.5-5.0 [facility]2016-12-22 10:42:00 Test Item Value Reference Range Interpretation Comments B/C Ratio (test code = B/C Ratio) 20 6-25 [facility]2016-12-22 10:42:00 Test Item Value Reference Range Interpretation Comments Globulin (test code = Globulin) 3.6 2.7-4.2 [facility]2016-12-22 10:42:00 Test Item Value Reference Range Interpretation Comments A/G Ratio (test code = A/G Ratio) 0.4 0.7-1.6 [facility]2016-12-22 10:42:00 Test Item Value Reference Range Interpretation Comments Alk Phos (test code = Alk Phos) 74 39-136 [facility]2016-12-22 10:42:00 Test Item Value Reference Range Interpretation Comments ALT (test code = ALT) 14 See_Comment [Auto mated message] The system which ge nerated this result transmit rohit reference range : <=65. The reference range was not used to interpr et this result as erji l/abnormal. [facility]2016-12-22 10:42:00 Test Item Value Reference Range Interpretation Comments AST (test code = AST) 13 See_Comment [Auto mated message] The system which ge nerated this result transmit rohit reference range : <=37. The reference range was not used to interpr et this result as reji l/abnormal. [facility]MzhapenUIKPJYUFAT0103-18-62 10:42:00 Test Item Value Reference Range Interpretation Comments INR (test code = INR) 1.06 0.85-1.17 [facility]anoKihcmxbBOJSDMFOVW9057-10-00 10:42:00 Test Item Value Reference Range Interpretation Comments PT (test code = PT) 14.0 s 12.0-14.7 [facility]anoEentbkbHUCDGGWLFM1888-15-78 10:42:00 Test Item Value Reference Range Interpretation Comments PTT (test code = PTT) 36.4 s 22.9-35.8 [facility] VDCQBENZI5936-04-23 10:42:00 Test Item Value Reference Range Interpretation Comments Hgb A1C (test code = Hgb A1C) 10.5 [facility]2016-12-22 10:42:00 Test Item Value Reference Range Interpretation Comments Bili Total (test code = Bili Total) 0.1 0.2-1.3 [facility]2016-12-22 10:42:00 Test Item Value Reference Range Interpretation Comments Total Protein (test code = Total 5.2 6.4-8.4 Protein) [facility]2016-12-22 10:42:00 Test Item Value Reference Range Interpretation Comments Albumin Lvl (test code = Albumin Lvl) 1.6 3.5-5.0 [facility]2016-12-22 10:42:00 Test Item Value Reference Range Interpretation Comments B/C Ratio (test code = B/C Ratio) 20 6-25 [facility]2016-12-22 10:42:00 Test Item Value Reference Range Interpretation Comments Globulin (test code = Globulin) 3.6 2.7-4.2 [facility]2016-12-22 10:42:00 Test Item Value Reference Range Interpretation Comments A/G Ratio (test code = A/G Ratio) 0.4 0.7-1.6 [facility]2016-12-22 10:42:00 Test Item Value Reference Range Interpretation Comments Alk Phos (test code = Alk Phos) 74 39-136 [facility]2016-12-22 10:42:00 Test Item Value Reference Range Interpretation Comments ALT (test code = ALT) 14 See_Comment [Auto mated message] The system which ge nerated this result transmit rohit reference range : <=65. The reference range was not used to interpr et this result as reji l/abnormal. [facility]2016-12-22 10:42:00 Test Item Value Reference Range Interpretation Comments AST (test code = AST) 13 See_Comment [Auto mated message] The system which ge nerated this result transmit rohit reference range : <=37. The reference range was not used to interpr et this result as reji l/abnormal. [facility]anoWlzawvuGGLIGCNUUU7916-54-86 10:42:00 Test Item Value Reference Range Interpretation Comments INR (test code = INR) 1.06 0.85-1.17 [facility]anoQwsajybQFNRZJXDIT4240-18-02 10:42:00 Test Item Value Reference Range Interpretation Comments PT (test code = PT) 14.0 s 12.0-14.7 [facility]rvQJNUYZVVVJ8585-81-42 10:42:00 Test Item Value Reference Range Interpretation Comments PTT (test code = PTT) 36.4 s 22.9-35.8 [facility] [id number] 10:42:00 Test Item Value Reference Range Interpretation Comments Hgb A1C (test code = Hgb A1C) 10.5 [facility] [id number] 10:42:00 Test Item Value Reference Range Interpretation Comments Bili Total (test code = Bili Total) 0.1 0.2-1.3 [facility]2016-12-22 10:42:00 Test Item Value Reference Range Interpretation Comments Total Protein (test code = Total 5.2 6.4-8.4 Protein) [facility]2016-12-22 10:42:00 Test Item Value Reference Range Interpretation Comments Albumin Lvl (test code = Albumin Lvl) 1.6 3.5-5.0 [facility] StationB[facility] IonicsSELECT [facility] [id number] 10:42:00 Test Item Value Reference Range Interpretation Comments B/C Ratio (test code = B/C Ratio) 20 6-25 [facility]2016-12-22 10:42:00 Test Item Value Reference Range Interpretation Comments Globulin (test code = Globulin) 3.6 2.7-4.2 [facility] [id number] 10:42:00 Test Item Value Reference Range Interpretation Comments A/G Ratio (test code = A/G Ratio) 0.4 0.7-1.6 [facility] StationB[place] IonicsMISSION FAMILY HEALTH CENTEREBTWB9683-65-16 10:42:00 Test Item Value Reference Range Interpretation Comments Alk Phos (test code = Alk Phos) 74 39-136 [facility]2016-12-22 10:42:00 Test Item Value Reference Range Interpretation Comments ALT (test code = ALT) 14 See_Comment [Auto mated message] The system which ge nerated this result transmit rohit reference range : <=65. The reference range was not used to interpr et this result as reji l/abnormal. [facility]MD[facility] HLAFH0934-18-71 10:42:00 Test Item Value Reference Range Interpretation Comments AST (test code = AST) 13 See_Comment [Auto mated message] The system which ge nerated this result transmit rohit reference range : <=37. The reference range was not used to interpr et this result as reji l/abnormal. [facility] HospitalRtwznzaHYFEFGQQHW5505-81-10 10:42:00 Test Item Value Reference Range Interpretation Comments INR (test code = INR) 1.06 0.85-1.17 [facility] StationZurwyhtIPFRRRGBGV3248-78-56 10:42:00 Test Item Value Reference Range Interpretation Comments PT (test code = PT) 14.0 s 12.0-14.7 [facility] HospitalQrjnpfwFVTIVCITBS9588-26-66 10:42:00 Test Item Value Reference Range Interpretation Comments PTT (test code = PTT) 36.4 s 22.9-35.8 [facility] [id number] 10:42:00 Test Item Value Reference Range Interpretation Comments Hgb A1C (test code = Hgb A1C) 10.5 [facility]2016-12-22 10:42:00 Test Item Value Reference Range Interpretation Comments Bili Total (test code = Bili Total) 0.1 0.2-1.3 [place] [id number] 10:42:00 Test Item Value Reference Range Interpretation Comments Total Protein (test code = Total 5.2 6.4-8.4 Protein) [place] 327786-12-22 10:42:00 Test Item Value Reference Range Interpretation Comments Albumin Lvl (test code = Albumin Lvl) 1.6 3.5-5.0 [place] 327786-12-22 10:42:00 Test Item Value Reference Range Interpretation Comments B/C Ratio (test code = B/C Ratio) 20 6-25 [place] 327786-12-22 10:42:00 Test Item Value Reference Range Interpretation Comments Globulin (test code = Globulin) 3.6 2.7-4.2 [place] 327786-12-22 10:42:00 Test Item Value Reference Range Interpretation Comments A/G Ratio (test code = A/G Ratio) 0.4 0.7-1.6 [facility]2016-12-22 10:42:00 Test Item Value Reference Range Interpretation Comments Alk Phos (test code = Alk Phos) 74 39-136 [facility]2016-12-22 10:42:00 Test Item Value Reference Range Interpretation Comments ALT (test code = ALT) 14 See_Comment [Auto mated message] The system which ge nerated this result transmit rohit reference range : <=65. The reference range was not used to interpr et this result as reji l/abnormal. [facility]2016-12-22 10:42:00 Test Item Value Reference Range Interpretation Comments AST (test code = AST) 13 See_Comment [Auto mated message] The system which ge nerated this result transmit rohit reference range : <=37. The reference range was not used to interpr et this result as reji l/abnormal. [place] 140206-12-22 10:42:00 Test Item Value Reference Range Interpretation Comments INR (test code = INR) 1.06 0.85-1.17 [facility]QwpvmceVUQDWXATFK0644-79-90 10:42:00 Test Item Value Reference Range Interpretation Comments PT (test code = PT) 14.0 s 12.0-14.7 [facility] HospitalIrufvhyTSSSMMWJSI1814-35-36 10:42:00 Test Item Value Reference Range Interpretation Comments PTT (test code = PTT) 36.4 s 22.9-35.8 [facility] [id number] 10:42:00 Test Item Value Reference Range Interpretation Comments Hgb A1C (test code = Hgb A1C) 10.5 [facility]2016-12-22 10:42:00 Test Item Value Reference Range Interpretation Comments Bili Total (test code = Bili Total) 0.1 0.2-1.3 [facility]2016-12-22 10:42:00 Test Item Value Reference Range Interpretation Comments Total Protein (test code = Total 5.2 6.4-8.4 Protein) [facility]2016-12-22 10:42:00 Test Item Value Reference Range Interpretation Comments Albumin Lvl (test code = Albumin Lvl) 1.6 3.5-5.0 [facility]2016-12-22 10:42:00 Test Item Value Reference Range Interpretation Comments B/C Ratio (test code = B/C Ratio) 20 6-25 [facility]2016-12-22 10:42:00 Test Item Value Reference Range Interpretation Comments Globulin (test code = Globulin) 3.6 2.7-4.2 [facility]2016-12-22 10:42:00 Test Item Value Reference Range Interpretation Comments A/G Ratio (test code = A/G Ratio) 0.4 0.7-1.6 [facility]2016-12-22 10:42:00 Test Item Value Reference Range Interpretation Comments Alk Phos (test code = Alk Phos) 74 39-136 [facility]2016-12-22 10:42:00 Test Item Value Reference Range Interpretation Comments ALT (test code = ALT) 14 See_Comment [Auto mated message] The system which ge nerated this result transmit rohit reference range : <=65. The reference range was not used to interpr et this result as reji l/abnormal. [facility]2016-12-22 10:42:00 Test Item Value Reference Range Interpretation Comments AST (test code = AST) 13 See_Comment [Auto mated message] The system which ge nerated this result transmit rohit reference range : <=37. The reference range was not used to interpr et this result as reji l/abnormal. [facility] HospitalUgfcoepXSHGYQXEWG6490-19-69 10:42:00 Test Item Value Reference Range Interpretation Comments INR (test code = INR) 1.06 0.85-1.17 [facility] HospitalUzpezkyDSMQTPGYZD8252-76-42 10:42:00 Test Item Value Reference Range Interpretation Comments PT (test code = PT) 14.0 s 12.0-14.7 [facility] HospitalUfuviuzSPAGCZPUTB0742-83-48 10:42:00 Test Item Value Reference Range Interpretation Comments PTT (test code = PTT) 36.4 s 22.9-35.8 [facility] PSOOWDCWG1332-04-51 10:42:00 Test Item Value Reference Range Interpretation Comments Hgb A1C (test code = Hgb A1C) 10.5 [facility] [id number] 02:08:00 Test Item Value Reference Range Interpretation Comments U Cannab Scr (test Negative *NA*(06/10/16 code = U Cannab Scr) 8:08 PM) [facility] [id number] 02:08:00 Test Item Value Reference Range Interpretation Comments U Amph Scr (test code Negative *NA*(06/10/16 = U Amph Scr) 8:08 PM) [facility] [id number] 02:08:00 Test Item Value Reference Range Interpretation Comments U Kelly Scr (test code Negative *NA*(06/10/16 = U Kelly Scr) 8:08 PM) [facility] StationannDR[facility] [id number] 02:08:00 Test Item Value Reference Range Interpretation Comments U Benzodia Scr (test Negative *NA*(06/10/16 code = U Benzodia Scr) 8:08 PM) [facility] [id number] 02:08:00 Test Item Value Reference Range Interpretation Comments U Cocaine Scr (test Negative *NA*(06/10/16 code = U Cocaine Scr) 8:08 PM) [facility] HospitalWgwfzemVXEOSD9469-27-23 02:08:00 Test Item Value Reference Range Interpretation Comments LDL (Calculated) (test code = LDL 75 (Calculated)) [facility]lineJxgifvqQGVPRV8584-13-54 02:08:00 Test Item Value Reference Range Interpretation Comments VLDL (test code = VLDL) 27 [facility] ShorelineCgwsjynPNZFRF2745-74-61 02:08:00 Test Item Value Reference Range Interpretation Comments Chol (test code = Chol) 133 [facility] ShorelineFnewkkbYRHSDN0394-46-58 02:08:00 Test Item Value Reference Range Interpretation Comments Trig (test code = Trig) 133 [facility] ShorelineKqpspnaSKIGJV3608-69-91 02:08:00 Test Item Value Reference Range Interpretation Comments CHD Risk (test code = CHD Risk) 4.29 3.90-5.80 [facility] ShorelineKvhzdpfOEISGO2012-16-72 02:08:00 Test Item Value Reference Range Interpretation Comments HDL (test code = HDL) 31 [facility] AND [id number] 02:08:00 Test Item Value Reference Range Interpretation Comments UA Urobilinogen (test code = UA <=1.0 mg/dL 0.1-1.0 Urobilinogen) [facility] AND [id number] 02:08:00 Test Item Value Reference Range Interpretation Comments UA Ketones (test code = UA Negative mg/dL Ketones) [facility] AND [id number] 02:08:00 Test Item Value Reference Range Interpretation Comments UA Glucose (test code = UA Glucose) 300 mg/dL [facility] AND [id number] 02:08:00 Test Item Value Reference Range Interpretation Comments UA Protein (test code = UA >=300 mg/dL Protein) [facility] AND [id number] 02:08:00 Test Item Value Reference Range Interpretation Comments UA pH (test code = UA pH) 6.0 5.0-8.0 [facility] AND [id number] 02:08:00 Test Item Value Reference Range Interpretation Comments UA Nitrite (test code Negative (06/10/16 8:08 = UA Nitrite) PM) [facility] AND [id number] 02:08:00 Test Item Value Reference Range Interpretation Comments UA Blood (test code = Trace *ABN*(06/10/16 UA Blood) 8:08 PM) [facility] AND [id number] 02:08:00 Test Item Value Reference Range Interpretation Comments UA Bili (test code = Negative *NA*(06/10/16 UA Bili) 8:08 PM) [facility] [id number] 02:08:00 Test Item Value Reference Range Interpretation Comments UA Mucus (test code = UA Mucus) Few /LPF [facility] [id number] 02:08:00 Test Item Value Reference Range Interpretation Comments UA RBC (test code = 4 See_Comment [Automa rohit message] The UA RBC) system which ge nerated this result transmit rohit reference range : <=2. The reference range was not used to interpr et this result as reji l/abnormal. [facility] [id number] 02:08:00 Test Item Value Reference Range Interpretation Comments UA Sq Epi (test code = UA Sq Epi) Few /LPF [facility] [id number] 02:08:00 Test Item Value Reference Range Interpretation Comments UA WBC (test code = 5 See_Comment [Automa rohit message] The UA WBC) system which ge nerated this result transmit rohit reference range : <=5. The reference range was not used to interpr et this result as reji l/abnormal. [facility] [id number] 02:08:00 Test Item Value Reference Range Interpretation Comments UA Leuk Est (test code Small *ABN*(06/10/16 = UA Leuk Est) 8:08 PM) [facility] [id number] 02:08:00 Test Item Value Reference Range Interpretation Comments UA Hyal Cast (test 1 See_Comment [Automat ed message] The code = UA Hyal Cast) system which generated this result transmit rohit reference range : <=2. The reference range was not used to interpr et this result as reji l/abnormal. [facility] [id number] 02:08:00 Test Item Value Reference Range Interpretation Comments UA Spec Grav (test code = UA Spec Grav) 1.009 [facility] [id number] 02:08:00 Test Item Value Reference Range Interpretation Comments UA Color (test code = Yellow *NA*(06/10/16 UA Color) 8:08 PM) [facility] [id number] 02:08:00 Test Item Value Reference Range Interpretation Comments UA Turbidity (test code = Clear (06/10/16 8:08 UA Turbidity) PM) [facility] BossmanannURINE [id number] 02:08:00 Test Item Value Reference Range Interpretation Comments U Preg (test code = U Negative (06/10/16 8:08 Preg) PM) [facility] [id number] 02:08:00 Test Item Value Reference Range Interpretation Comments U Protein (test code = U Protein) 375.4 [facility] [id number] 02:08:00 Test Item Value Reference Range Interpretation Comments U Prot/Creat (test code = U Prot/Creat) 5.4 [facility] [id number] 02:08:00 Test Item Value Reference Range Interpretation Comments U Creatinine (test code = U Creatinine) 69.80 [facility] StationB[facility] IonicsCARDIAC [id number] 02:08:00 Test Item Value Reference Range Interpretation Comments CK MB Index (test 1.8 See_Comment [Automate d message] The code = CK MB Index) system w [facility] generated this result transmit rohit reference range : <=2.5. The reference range was not used to interpr et this result as reji l/abnormal. [facility] [employer]uitive DesignsCARMeriTaleemAC [id number] 02:08:00 Test Item Value Reference Range Interpretation Comments CK MB (test code = CK MB) 2.9 0.5-3.6 [facility] WhoisEDIAC [id number] 02:08:00 Test Item Value Reference Range Interpretation Comments Troponin-T (test code 0.061 See_Comment [Auto mated message] The = Troponin-T) system which g enerated this result transmit rohit reference range : <=0.100. The reference r leo was not used to interpr et this result as reji l/abnormal. [facility] Light[employer] AppsannCARMeriTaleemAC [id number] 02:08:00 Test Item Value Reference Range Interpretation Comments Total CK (test code = Total CK) 159 12-191 [facility] [employer] AppsannCARMeriTaleemAC [id number] 02:08:00 Test Item Value Reference Range Interpretation Comments Troponin-I (test code no gt See_Comment [Auto mated message] The = Troponin-I) system which g enerated this result transmit rohit reference range : <=0.40. The reference r leo was not used to interpr et this result as reji l/abnormal. [place] [id number] 02:08:00 Test Item Value Reference Range Interpretation Comments Bili Total (test code = Bili Total) 0.2 0.2-1.3 [place] [id number] 02:08:00 Test Item Value Reference Range Interpretation Comments Bili Direct (test code 0.1 See_Comment [Aut omated message] The = Bili Direct) system which generated this result tra nsmitted reference range : <=0.3. The reference r leo was not used to int erpret this result as reji l/abnormal. [facility]2016-12-22 02:08:00 Test Item Value Reference Range Interpretation Comments Bili Indirect (test 0.1 See_Comment [Automa rohit message] The code = Bili Indirect) system which generated this result tra nsmitted reference range : <=1.0. The reference r leo was not used to int erpret this result as normal/abnormal . [facility]2016-12-22 02:08:00 Test Item Value Reference Range Interpretation Comments Total Protein (test code = Total 5.7 6.4-8.4 Protein) [facility]2016-12-22 02:08:00 Test Item Value Reference Range Interpretation Comments A/G Ratio (test code = A/G Ratio) 0.5 0.7-1.6 [place] [id number] 02:08:00 Test Item Value Reference Range Interpretation Comments Albumin Lvl (test code = Albumin Lvl) 1.8 3.5-5.0 [place] [id number] 02:08:00 Test Item Value Reference Range Interpretation Comments Globulin (test code = Globulin) 3.9 2.7-4.2 [place] [id number] 02:08:00 Test Item Value Reference Range Interpretation Comments Alk Phos (test code = Alk Phos) 99 39-136 [facility]2016-12-22 02:08:00 Test Item Value Reference Range Interpretation Comments AST (test code = AST) 21 See_Comment [Auto mated message] The system which ge nerated this result transmit rohit reference range : <=37. The reference range was not used to interpr et this result as reji l/abnormal. [facility] LightPath AppsannCHEM [id number] 02:08:00 Test Item Value Reference Range Interpretation Comments ALT (test code = ALT) 17 See_Comment [Auto mated message] The system which ge nerated this result transmit rohit reference range : <=65. The reference range was not used to interpr et this result as reji l/abnormal. [facility] [id number] 02:08:00 Test Item Value Reference Range Interpretation Comments UDS Note (test code = See Note *NA*(06/10/16 UDS Note) 8:08 PM) [facility] [id number] 02:08:00 Test Item Value Reference Range Interpretation Comments U Propoxyph Scr (test Negative *NA*(06/10/16 code = U Propoxyph Scr) 8:08 PM) [facility] [id number] 02:08:00 Test Item Value Reference Range Interpretation Comments U Opiate Scr (test Negative *NA*(06/10/16 code = U Opiate Scr) 8:08 PM) [facility] [id number] 02:08:00 Test Item Value Reference Range Interpretation Comments U Methadone Scr (test Negative *NA*(06/10/16 code = U Methadone Scr) 8:08 PM) [facility] [id number] 02:08:00 Test Item Value Reference Range Interpretation Comments U Phencyc Scr (test Negative *NA*(06/10/16 code = U Phencyc Scr) 8:08 PM) [facility]annCARDIAC [id number] 02:08:00 Test Item Value Reference Range Interpretation Comments CK MB Index (test 1.8 See_Comment [Automate d message] The code = CK MB Index) system w [facility] generated this result transmit rohit reference range : <=2.5. The reference range was not used to interpr et this result as reji l/abnormal. [facility]CARDI[facility] [id number] 02:08:00 Test Item Value Reference Range Interpretation Comments CK MB (test code = CK MB) 2.9 0.5-3.6 [facility] [id number] 02:08:00 Test Item Value Reference Range Interpretation Comments Troponin-T (test code 0.061 See_Comment [Auto mated message] The = Troponin-T) system which g enerated this result transmit rohit reference range : <=0.100. The reference r leo was not used to interpr et this result as reji l/abnormal. [facility]Ch[facility] GroupR[facility] [id number] 02:08:00 Test Item Value Reference Range Interpretation Comments Total CK (test code = Total CK) 159 12-191 [facility] [id number] 02:08:00 Test Item Value Reference Range Interpretation Comments Troponin-I (test code no gt See_Comment [Auto mated message] The = Troponin-I) system which g enerated this result transmit rohit reference range : <=0.40. The reference r leo was not used to interpr et this result as reji l/abnormal. [facility] StationMailPix [id number] 02:08:00 Test Item Value Reference Range Interpretation Comments Bili Total (test code = Bili Total) 0.2 0.2-1.3 [facility] [id number] 02:08:00 Test Item Value Reference Range Interpretation Comments Bili Direct (test code 0.1 See_Comment [Aut omated message] The = Bili Direct) system which generated this result tra nsmitted reference range : <=0.3. The reference r leo was not used to int erpret this result as reji l/abnormal. [facility] StationMailPix [id number] 02:08:00 Test Item Value Reference Range Interpretation Comments Bili Indirect (test 0.1 See_Comment [Automa rohit message] The code = Bili Indirect) system which generated this result tra nsmitted reference range : <=1.0. The reference r leo was not used to int erpret this result as normal/abnormal . [facility] [employer] [id number] 02:08:00 Test Item Value Reference Range Interpretation Comments Total Protein (test code = Total 5.7 6.4-8.4 Protein) [facility] [id number] 02:08:00 Test Item Value Reference Range Interpretation Comments A/G Ratio (test code = A/G Ratio) 0.5 0.7-1.6 [facility] [id number] 02:08:00 Test Item Value Reference Range Interpretation Comments Albumin Lvl (test code = Albumin Lvl) 1.8 3.5-5.0 [facility] [employer] [id number] 02:08:00 Test Item Value Reference Range Interpretation Comments Globulin (test code = Globulin) 3.9 2.7-4.2 [facility] StationMailPix [id number] 02:08:00 Test Item Value Reference Range Interpretation Comments Alk Phos (test code = Alk Phos) 99 39-136 [facility] StationMailPix [id number] 02:08:00 Test Item Value Reference Range Interpretation Comments AST (test code = AST) 21 See_Comment [Auto mated message] The system which ge nerated this result transmit rohit reference range : <=37. The reference range was not used to interpr et this result as reji l/abnormal. [facility] StationMailPix [id number] 02:08:00 Test Item Value Reference Range Interpretation Comments ALT (test code = ALT) 17 See_Comment [Auto mated message] The system which ge nerated this result transmit rohit reference range : <=65. The reference range was not used to interpr et this result as reji l/abnormal. [facility] StationannPrometheus [employer] [id number] 02:08:00 Test Item Value Reference Range Interpretation Comments UDS Note (test code = See Note *NA*(06/10/16 UDS Note) 8:08 PM) [facility] StationannDRUG [id number] 02:08:00 Test Item Value Reference Range Interpretation Comments U Propoxyph Scr (test Negative *NA*(06/10/16 code = U Propoxyph Scr) 8:08 PM) [facility] StationannDRUG [id number] 02:08:00 Test Item Value Reference Range Interpretation Comments U Opiate Scr (test Negative *NA*(06/10/16 code = U Opiate Scr) 8:08 PM) [facility] StationannDRUG [id number] 02:08:00 Test Item Value Reference Range Interpretation Comments U Methadone Scr (test Negative *NA*(06/10/16 code = U Methadone Scr) 8:08 PM) [facility] StationannDRUG [id number] 02:08:00 Test Item Value Reference Range Interpretation Comments U Phencyc Scr (test Negative *NA*(06/10/16 code = U Phencyc Scr) 8:08 PM) [facility] [id number] 02:08:00 Test Item Value Reference Range Interpretation Comments U Cannab Scr (test Negative *NA*(06/10/16 code = U Cannab Scr) 8:08 PM) [facility] [id number] 02:08:00 Test Item Value Reference Range Interpretation Comments U Amph Scr (test code Negative *NA*(06/10/16 = U Amph Scr) 8:08 PM) [facility] [id number] 02:08:00 Test Item Value Reference Range Interpretation Comments U Kelly Scr (test code Negative *NA*(06/10/16 = U Kelly Scr) 8:08 PM) [facility]DR[facility] [id number] 02:08:00 Test Item Value Reference Range Interpretation Comments U Benzodia Scr (test Negative *NA*(06/10/16 code = U Benzodia Scr) 8:08 PM) [facility]DR[facility] [id number] 02:08:00 Test Item Value Reference Range Interpretation Comments U Cocaine Scr (test Negative *NA*(06/10/16 code = U Cocaine Scr) 8:08 PM) [facility] [id number] 02:08:00 Test Item Value Reference Range Interpretation Comments LDL (Calculated) (test code = LDL 75 (Calculated)) [facility] [id number] 02:08:00 Test Item Value Reference Range Interpretation Comments VLDL (test code = VLDL) 27 [facility] [id number] 02:08:00 Test Item Value Reference Range Interpretation Comments Chol (test code = Chol) 133 [facility] [id number] 02:08:00 Test Item Value Reference Range Interpretation Comments Trig (test code = Trig) 133 [facility] [id number] 02:08:00 Test Item Value Reference Range Interpretation Comments CHD Risk (test code = CHD Risk) 4.29 3.90-5.80 [facility] [id number] 02:08:00 Test Item Value Reference Range Interpretation Comments HDL (test code = HDL) 31 [facility] [id number] 02:08:00 Test Item Value Reference Range Interpretation Comments UA Urobilinogen (test code = UA <=1.0 mg/dL 0.1-1.0 Urobilinogen) [facility] AND [id number] 02:08:00 Test Item Value Reference Range Interpretation Comments UA Ketones (test code = UA Negative mg/dL Ketones) [facility] AND [id number] 02:08:00 Test Item Value Reference Range Interpretation Comments UA Glucose (test code = UA Glucose) 300 mg/dL [facility] AND [id number] 02:08:00 Test Item Value Reference Range Interpretation Comments UA Protein (test code = UA >=300 mg/dL Protein) [facility] AND [id number] 02:08:00 Test Item Value Reference Range Interpretation Comments UA pH (test code = UA pH) 6.0 5.0-8.0 [facility] AND [id number] 02:08:00 Test Item Value Reference Range Interpretation Comments UA Nitrite (test code Negative (06/10/16 8:08 = UA Nitrite) PM) [facility] AND [id number] 02:08:00 Test Item Value Reference Range Interpretation Comments UA Blood (test code = Trace *ABN*(06/10/16 UA Blood) 8:08 PM) [facility] AND [id number] 02:08:00 Test Item Value Reference Range Interpretation Comments UA Bili (test code = Negative *NA*(06/10/16 UA Bili) 8:08 PM) [facility] AND [id number] 02:08:00 Test Item Value Reference Range Interpretation Comments UA Mucus (test code = UA Mucus) Few /LPF [facility] AND [id number] 02:08:00 Test Item Value Reference Range Interpretation Comments UA RBC (test code = 4 See_Comment [Automa rohit message] The UA RBC) system which ge nerated this result transmit rohit reference range : <=2. The reference range was not used to interpr et this result as reji l/abnormal. [facility] AND [id number] 02:08:00 Test Item Value Reference Range Interpretation Comments UA Sq Epi (test code = UA Sq Epi) Few /LPF [facility] AND [id number] 02:08:00 Test Item Value Reference Range Interpretation Comments UA WBC (test code = 5 See_Comment [Automa rohit message] The UA WBC) system which ge nerated this result transmit rohit reference range : <=5. The reference range was not used to interpr et this result as reji l/abnormal. [facility] [id number] 02:08:00 Test Item Value Reference Range Interpretation Comments UA Leuk Est (test code Small *ABN*(06/10/16 = UA Leuk Est) 8:08 PM) [facility] AND [id number] 02:08:00 Test Item Value Reference Range Interpretation Comments UA Hyal Cast (test 1 See_Comment [Automat ed message] The code = UA Hyal Cast) system which generated this result transmit rohit reference range : <=2. The reference range was not used to interpr et this result as reji l/abnormal. [facility] BossmanannURINE AND [id number] 02:08:00 Test Item Value Reference Range Interpretation Comments UA Spec Grav (test code = UA Spec Grav) 1.009 [facility]annK[facility] AND [id number] 02:08:00 Test Item Value Reference Range Interpretation Comments UA Color (test code = Yellow *NA*(06/10/16 UA Color) 8:08 PM) [facility] AND [id number] 02:08:00 Test Item Value Reference Range Interpretation Comments UA Turbidity (test code = Clear (06/10/16 8:08 UA Turbidity) PM) [facility] [id number] 02:08:00 Test Item Value Reference Range Interpretation Comments U Preg (test code = U Negative (06/10/16 8:08 Preg) PM) [facility] [id number] 02:08:00 Test Item Value Reference Range Interpretation Comments U Protein (test code = U Protein) 375.4 [facility] [id number] 02:08:00 Test Item Value Reference Range Interpretation Comments U Prot/Creat (test code = U Prot/Creat) 5.4 [facility] [id number] 02:08:00 Test Item Value Reference Range Interpretation Comments U Creatinine (test code = U Creatinine) 69.80 [facility] BossmanannCARDIAC [id number] 02:08:00 Test Item Value Reference Range Interpretation Comments CK MB Index (test 1.8 See_Comment [Automate d message] The code = CK MB Index) system w [facility] generated this result transmit rohit reference range : <=2.5. The reference range was not used to interpr et this result as reji l/abnormal. [facility] StationSynbiota [id number] 02:08:00 Test Item Value Reference Range Interpretation Comments CK MB (test code = CK MB) 2.9 0.5-3.6 [facility] [id number] 02:08:00 Test Item Value Reference Range Interpretation Comments Troponin-T (test code 0.061 See_Comment [Auto mated message] The = Troponin-T) system which g enerated this result transmit rohit reference range : <=0.100. The reference r leo was not used to interpr et this result as reji l/abnormal. [facility]Chamson GroupRIVER [facility] [id number] 02:08:00 Test Item Value Reference Range Interpretation Comments Total CK (test code = Total CK) 159 12-191 [facility]Ch[facility] GroupR[facility] [id number] 02:08:00 Test Item Value Reference Range Interpretation Comments Troponin-I (test code no gt See_Comment [Auto mated message] The = Troponin-I) system which g enerated this result transmit rohit reference range : <=0.40. The reference r leo was not used to interpr et this result as reji l/abnormal. [facility] [employer] [id number] 02:08:00 Test Item Value Reference Range Interpretation Comments Bili Total (test code = Bili Total) 0.2 0.2-1.3 [facility] Otto Clave2016-12-22 02:08:00 Test Item Value Reference Range Interpretation Comments Bili Direct (test code 0.1 See_Comment [Aut omated message] The = Bili Direct) system which generated this result tra nsmitted reference range : <=0.3. The reference r leo was not used to int erpret this result as reji l/abnormal. [facility] Otto Clave2016-12-22 02:08:00 Test Item Value Reference Range Interpretation Comments Bili Indirect (test 0.1 See_Comment [Automa rohit message] The code = Bili Indirect) system which generated this result tra nsmitted reference range : <=1.0. The reference r leo was not used to int erpret this result as normal/abnormal . [facility] StationMailPix [id number] 02:08:00 Test Item Value Reference Range Interpretation Comments Total Protein (test code = Total 5.7 6.4-8.4 Protein) [facility]2016-12-22 02:08:00 Test Item Value Reference Range Interpretation Comments A/G Ratio (test code = A/G Ratio) 0.5 0.7-1.6 [facility] [id number] 02:08:00 Test Item Value Reference Range Interpretation Comments Albumin Lvl (test code = Albumin Lvl) 1.8 3.5-5.0 [facility] StationMailPix [id number] 02:08:00 Test Item Value Reference Range Interpretation Comments Globulin (test code = Globulin) 3.9 2.7-4.2 [facility] [id number] 02:08:00 Test Item Value Reference Range Interpretation Comments Alk Phos (test code = Alk Phos) 99 39-136 [facility] [id number] 02:08:00 Test Item Value Reference Range Interpretation Comments AST (test code = AST) 21 See_Comment [Auto mated message] The system which ge nerated this result transmit rohit reference range : <=37. The reference range was not used to interpr et this result as reji l/abnormal. [facility] StationMailPix [id number] 02:08:00 Test Item Value Reference Range Interpretation Comments ALT (test code = ALT) 17 See_Comment [Auto mated message] The system which ge nerated this result transmit rohit reference range : <=65. The reference range was not used to interpr et this result as reji l/abnormal. [facility] StationAdmeld [id number] 02:08:00 Test Item Value Reference Range Interpretation Comments UDS Note (test code = See Note *NA*(06/10/16 UDS Note) 8:08 PM) [facility] StationAdmeld [id number] 02:08:00 Test Item Value Reference Range Interpretation Comments U Propoxyph Scr (test Negative *NA*(06/10/16 code = U Propoxyph Scr) 8:08 PM) [facility] StationAdmeld [id number] 02:08:00 Test Item Value Reference Range Interpretation Comments U Opiate Scr (test Negative *NA*(06/10/16 code = U Opiate Scr) 8:08 PM) [facility] CenterannDRUG [id number] 02:08:00 Test Item Value Reference Range Interpretation Comments U Methadone Scr (test Negative *NA*(06/10/16 code = U Methadone Scr) 8:08 PM) [facility] StationannDRUG [id number] 02:08:00 Test Item Value Reference Range Interpretation Comments U Phencyc Scr (test Negative *NA*(06/10/16 code = U Phencyc Scr) 8:08 PM) [facility] StationannDRUG [id number] 02:08:00 Test Item Value Reference Range Interpretation Comments U Cannab Scr (test Negative *NA*(06/10/16 code = U Cannab Scr) 8:08 PM) [facility] [id number] 02:08:00 Test Item Value Reference Range Interpretation Comments U Amph Scr (test code Negative *NA*(06/10/16 = U Amph Scr) 8:08 PM) [facility] [id number] 02:08:00 Test Item Value Reference Range Interpretation Comments U Kelly Scr (test code Negative *NA*(06/10/16 = U Kelly Scr) 8:08 PM) [facility] [id number] 02:08:00 Test Item Value Reference Range Interpretation Comments U Benzodia Scr (test Negative *NA*(06/10/16 code = U Benzodia Scr) 8:08 PM) [facility] [id number] 02:08:00 Test Item Value Reference Range Interpretation Comments U Cocaine Scr (test Negative *NA*(06/10/16 code = U Cocaine Scr) 8:08 PM) [facility] [id number] 02:08:00 Test Item Value Reference Range Interpretation Comments LDL (Calculated) (test code = LDL 75 (Calculated)) [facility] [id number] 02:08:00 Test Item Value Reference Range Interpretation Comments VLDL (test code = VLDL) 27 [facility] [id number] 02:08:00 Test Item Value Reference Range Interpretation Comments Chol (test code = Chol) 133 [facility] [id number] 02:08:00 Test Item Value Reference Range Interpretation Comments Trig (test code = Trig) 133 [id number]:08[facility]00 Test Item Value Reference Range Interpretation Comments CHD Risk (test code = CHD Risk) 4.29 3.90-5.80 [id number] 02:08:00 Test Item Value Reference Range Interpretation Comments HDL (test code = HDL) 31 [facility] AND [id number] 02:08:00 Test Item Value Reference Range Interpretation Comments UA Urobilinogen (test code = UA <=1.0 mg/dL 0.1-1.0 Urobilinogen) [facility] AND [id number] 02:08:00 Test Item Value Reference Range Interpretation Comments UA Ketones (test code = UA Negative mg/dL Ketones) [facility] AND [id number] 02:08:00 Test Item Value Reference Range Interpretation Comments UA Glucose (test code = UA Glucose) 300 mg/dL [facility] AND [id number] 02:08:00 Test Item Value Reference Range Interpretation Comments UA Protein (test code = UA >=300 mg/dL Protein) [facility] AND [id number] 02:08:00 Test Item Value Reference Range Interpretation Comments UA pH (test code = UA pH) 6.0 5.0-8.0 [facility] AND [id number] 02:08:00 Test Item Value Reference Range Interpretation Comments UA Nitrite (test code Negative (06/10/16 8:08 = UA Nitrite) PM) [facility] AND [id number] 02:08:00 Test Item Value Reference Range Interpretation Comments UA Blood (test code = Trace *ABN*(06/10/16 UA Blood) 8:08 PM) [facility] AND [id number] 02:08:00 Test Item Value Reference Range Interpretation Comments UA Bili (test code = Negative *NA*(06/10/16 UA Bili) 8:08 PM) [facility] AND [id number] 02:08:00 Test Item Value Reference Range Interpretation Comments UA Mucus (test code = UA Mucus) Few /LPF [facility] AND [id number] 02:08:00 Test Item Value Reference Range Interpretation Comments UA RBC (test code = 4 See_Comment [Automa rohit message] The UA RBC) system which ge nerated this result transmit rohit reference range : <=2. The reference range was not used to interpr et this result as reji l/abnormal. [facility] [id number] 02:08:00 Test Item Value Reference Range Interpretation Comments UA Sq Epi (test code = UA Sq Epi) Few /LPF [facility] AND [id number] 02:08:00 Test Item Value Reference Range Interpretation Comments UA WBC (test code = 5 See_Comment [Automa rohit message] The UA WBC) system which ge nerated this result transmit rohit reference range : <=5. The reference range was not used to interpr et this result as reji l/abnormal. [facility] AND [id number] 02:08:00 Test Item Value Reference Range Interpretation Comments UA Leuk Est (test code Small *ABN*(06/10/16 = UA Leuk Est) 8:08 PM) [facility] AND [id number] 02:08:00 Test Item Value Reference Range Interpretation Comments UA Hyal Cast (test 1 See_Comment [Automat ed message] The code = UA Hyal Cast) system which generated this result transmit rohit reference range : <=2. The reference range was not used to interpr et this result as reji l/abnormal. [facility] AND [id number] 02:08:00 Test Item Value Reference Range Interpretation Comments UA Spec Grav (test code = UA Spec Grav) 1.009 [facility] AND [id number] 02:08:00 Test Item Value Reference Range Interpretation Comments UA Color (test code = Yellow *NA*(06/10/16 UA Color) 8:08 PM) [facility] AND [id number] 02:08:00 Test Item Value Reference Range Interpretation Comments UA Turbidity (test code = Clear (06/10/16 8:08 UA Turbidity) PM) [facility]2016-12-22 02:08:00 Test Item Value Reference Range Interpretation Comments U Preg (test code = U Negative (06/10/16 8:08 Preg) PM) [facility]2016-12-22 02:08:00 Test Item Value Reference Range Interpretation Comments U Protein (test code = U Protein) 375.4 [facility] [id number] 02:08:00 Test Item Value Reference Range Interpretation Comments U Prot/Creat (test code = U Prot/Creat) 5.4 [facility] [id number] 02:08:00 Test Item Value Reference Range Interpretation Comments U Creatinine (test code = U Creatinine) 69.80 [facility] StationSynbiotaAC [id number] 02:08:00 Test Item Value Reference Range Interpretation Comments CK MB Index (test 1.8 See_Comment [Automate d message] The code = CK MB Index) system w [facility] generated this result transmit rohit reference range : <=2.5. The reference range was not used to interpr et this result as reji l/abnormal. [facility] WhoisEDI [id number] 02:08:00 Test Item Value Reference Range Interpretation Comments CK MB (test code = CK MB) 2.9 0.5-3.6 [facility] StationSynbiota [id number] 02:08:00 Test Item Value Reference Range Interpretation Comments Troponin-T (test code 0.061 See_Comment [Auto mated message] The = Troponin-T) system which g enerated this result transmit rohit reference range : <=0.100. The reference r leo was not used to interpr et this result as reji l/abnormal. [facility] [employer]2016-12-22 02:08:00 Test Item Value Reference Range Interpretation Comments Total CK (test code = Total CK) 159 12-191 [facility] StationreMail2016-12-22 02:08:00 Test Item Value Reference Range Interpretation Comments Troponin-I (test code no gt See_Comment [Auto mated message] The = Troponin-I) system which g enerated this result transmit rohit reference range : <=0.40. The reference r leo was not used to interpr et this result as reji l/abnormal. [facility] [employer] [id number] 02:08:00 Test Item Value Reference Range Interpretation Comments Bili Total (test code = Bili Total) 0.2 0.2-1.3 [facility] [employer] [id number] 02:08:00 Test Item Value Reference Range Interpretation Comments Bili Direct (test code 0.1 See_Comment [Aut omated message] The = Bili Direct) system which generated this result tra nsmitted reference range : <=0.3. The reference r leo was not used to int erpret this result as reji l/abnormal. [facility] [employer] [id number] 02:08:00 Test Item Value Reference Range Interpretation Comments Bili Indirect (test 0.1 See_Comment [Automa rohit message] The code = Bili Indirect) system which generated this result tra nsmitted reference range : <=1.0. The reference r leo was not used to int erpret this result as normal/abnormal . [facility] [employer] [id number] 02:08:00 Test Item Value Reference Range Interpretation Comments Total Protein (test code = Total 5.7 6.4-8.4 Protein) [facility] [employer] [id number] 02:08:00 Test Item Value Reference Range Interpretation Comments A/G Ratio (test code = A/G Ratio) 0.5 0.7-1.6 [facility] [employer] [id number] 02:08:00 Test Item Value Reference Range Interpretation Comments Albumin Lvl (test code = Albumin Lvl) 1.8 3.5-5.0 [facility] [employer] [id number] 02:08:00 Test Item Value Reference Range Interpretation Comments Globulin (test code = Globulin) 3.9 2.7-4.2 [facility] [employer] [id number] 02:08:00 Test Item Value Reference Range Interpretation Comments Alk Phos (test code = Alk Phos) 99 39-136 [facility] [employer] [id number] 02:08:00 Test Item Value Reference Range Interpretation Comments AST (test code = AST) 21 See_Comment [Auto mated message] The system which ge nerated this result transmit rohit reference range : <=37. The reference range was not used to interpr et this result as reji l/abnormal. [facility] [employer] [id number] 02:08:00 Test Item Value Reference Range Interpretation Comments ALT (test code = ALT) 17 See_Comment [Auto mated message] The system which ge nerated this result transmit rohit reference range : <=65. The reference range was not used to interpr et this result as reji l/abnormal. [facility] [id number] 02:08:00 Test Item Value Reference Range Interpretation Comments UDS Note (test code = See Note *NA*(06/10/16 UDS Note) 8:08 PM) [facility] [id number] 02:08:00 Test Item Value Reference Range Interpretation Comments U Propoxyph Scr (test Negative *NA*(06/10/16 code = U Propoxyph Scr) 8:08 PM) [facility] [id number] 02:08:00 Test Item Value Reference Range Interpretation Comments U Opiate Scr (test Negative *NA*(06/10/16 code = U Opiate Scr) 8:08 PM) [facility] [id number] 02:08:00 Test Item Value Reference Range Interpretation Comments U Methadone Scr (test Negative *NA*(06/10/16 code = U Methadone Scr) 8:08 PM) [facility] [id number] 02:08:00 Test Item Value Reference Range Interpretation Comments U Phencyc Scr (test Negative *NA*(06/10/16 code = U Phencyc Scr) 8:08 PM) [facility] [id number] 02:08:00 Test Item Value Reference Range Interpretation Comments U Cannab Scr (test Negative *NA*(06/10/16 code = U Cannab Scr) 8:08 PM) [facility] [id number] 02:08:00 Test Item Value Reference Range Interpretation Comments U Amph Scr (test code Negative *NA*(06/10/16 = U Amph Scr) 8:08 PM) [facility] [id number] 02:08:00 Test Item Value Reference Range Interpretation Comments U Kelly Scr (test code Negative *NA*(06/10/16 = U Kelly Scr) 8:08 PM) [facility] [id number] 02:08:00 Test Item Value Reference Range Interpretation Comments U Benzodia Scr (test Negative *NA*(06/10/16 code = U Benzodia Scr) 8:08 PM) [facility] [id number] 02:08:00 Test Item Value Reference Range Interpretation Comments U Cocaine Scr (test Negative *NA*(06/10/16 code = U Cocaine Scr) 8:08 PM) [id number] 02:08:00 Test Item Value Reference Range Interpretation Comments LDL (Calculated) (test code = LDL 75 (Calculated)) [facility] [id number] 02:08:00 Test Item Value Reference Range Interpretation Comments VLDL (test code = VLDL) 27 [facility] [id number] 02:08:00 Test Item Value Reference Range Interpretation Comments Chol (test code = Chol) 133 [facility] [id number] 02:08:00 Test Item Value Reference Range Interpretation Comments Trig (test code = Trig) 133 [facility] [id number] 02:08:00 Test Item Value Reference Range Interpretation Comments CHD Risk (test code = CHD Risk) 4.29 3.90-5.80 [facility] [id number] 02:08:00 Test Item Value Reference Range Interpretation Comments HDL (test code = HDL) 31 [facility] AND [id number] 02:08:00 Test Item Value Reference Range Interpretation Comments UA Urobilinogen (test code = UA <=1.0 mg/dL 0.1-1.0 Urobilinogen) [facility] AND [id number] 02:08:00 Test Item Value Reference Range Interpretation Comments UA Ketones (test code = UA Negative mg/dL Ketones) [facility] AND [id number] 02:08:00 Test Item Value Reference Range Interpretation Comments UA Glucose (test code = UA Glucose) 300 mg/dL [facility] AND [id number] 02:08:00 Test Item Value Reference Range Interpretation Comments UA Protein (test code = UA >=300 mg/dL Protein) [facility] AND [id number] 02:08:00 Test Item Value Reference Range Interpretation Comments UA pH (test code = UA pH) 6.0 5.0-8.0 [facility] AND [id number] 02:08:00 Test Item Value Reference Range Interpretation Comments UA Nitrite (test code Negative (06/10/16 8:08 = UA Nitrite) PM) [facility] AND [id number] 02:08:00 Test Item Value Reference Range Interpretation Comments UA Blood (test code = Trace *ABN*(06/10/16 UA Blood) 8:08 PM) [facility] [id number] 02:08:00 Test Item Value Reference Range Interpretation Comments UA Bili (test code = Negative *NA*(06/10/16 UA Bili) 8:08 PM) [facility] AND [id number] 02:08:00 Test Item Value Reference Range Interpretation Comments UA Mucus (test code = UA Mucus) Few /LPF [facility] AND [id number] 02:08:00 Test Item Value Reference Range Interpretation Comments UA RBC (test code = 4 See_Comment [Automa rohit message] The UA RBC) system which ge nerated this result transmit rohit reference range : <=2. The reference range was not used to interpr et this result as reji l/abnormal. [facility] AND [id number] 02:08:00 Test Item Value Reference Range Interpretation Comments UA Sq Epi (test code = UA Sq Epi) Few /LPF [facility] AND [id number] 02:08:00 Test Item Value Reference Range Interpretation Comments UA WBC (test code = 5 See_Comment [Automa rohit message] The UA WBC) system which ge nerated this result transmit rohit reference range : <=5. The reference range was not used to interpr et this result as reji l/abnormal. [facility] AND [id number] 02:08:00 Test Item Value Reference Range Interpretation Comments UA Leuk Est (test code Small *ABN*(06/10/16 = UA Leuk Est) 8:08 PM) [facility] AND [id number] 02:08:00 Test Item Value Reference Range Interpretation Comments UA Hyal Cast (test 1 See_Comment [Automat ed message] The code = UA Hyal Cast) system which generated this result transmit rohit reference range : <=2. The reference range was not used to interpr et this result as reji l/abnormal. [facility] AND [id number] 02:08:00 Test Item Value Reference Range Interpretation Comments UA Spec Grav (test code = UA Spec Grav) 1.009 [facility] AND [id number] 02:08:00 Test Item Value Reference Range Interpretation Comments UA Color (test code = Yellow *NA*(06/10/16 UA Color) 8:08 PM) [facility] Katelyn AND [id number] 02:08:00 Test Item Value Reference Range Interpretation Comments UA Turbidity (test code = Clear (06/10/16 8:08 UA Turbidity) PM) [facility] [id number] 02:08:00 Test Item Value Reference Range Interpretation Comments U Preg (test code = U Negative (06/10/16 8:08 Preg) PM) [facility] [id number] 02:08:00 Test Item Value Reference Range Interpretation Comments U Protein (test code = U Protein) 375.4 [facility] [id number] 02:08:00 Test Item Value Reference Range Interpretation Comments U Prot/Creat (test code = U Prot/Creat) 5.4 [facility] [id number] 02:08:00 Test Item Value Reference Range Interpretation Comments U Creatinine (test code = U Creatinine) 69.80 [facility] [id number] 02:08:00 Test Item Value Reference Range Interpretation Comments CK MB Index (test 1.8 See_Comment [Automate d message] The code = CK MB Index) system w [facility] generated this result transmit rohit reference range : <=2.5. The reference range was not used to interpr et this result as reji l/abnormal. [facility] VinCARMeriTaleemAC [id number] 02:08:00 Test Item Value Reference Range Interpretation Comments CK MB (test code = CK MB) 2.9 0.5-3.6 [facility] [id number] 02:08:00 Test Item Value Reference Range Interpretation Comments Troponin-T (test code 0.061 See_Comment [Auto mated message] The = Troponin-T) system which g enerated this result transmit rohit reference range : <=0.100. The reference r leo was not used to interpr et this result as reji l/abnormal. [facility]annCARDIAC [id number] 02:08:00 Test Item Value Reference Range Interpretation Comments Total CK (test code = Total CK) 159 12-191 [facility] [id number] 02:08:00 Test Item Value Reference Range Interpretation Comments Troponin-I (test code no gt See_Comment [Auto mated message] The = Troponin-I) system which g enerated this result transmit rohit reference range : <=0.40. The reference r leo was not used to interpr et this result as reji l/abnormal. [facility]2016-12-22 02:08:00 Test Item Value Reference Range Interpretation Comments Bili Total (test code = Bili Total) 0.2 0.2-1.3 [place] [id number] 02:08:00 Test Item Value Reference Range Interpretation Comments Bili Direct (test code 0.1 See_Comment [Aut omated message] The = Bili Direct) system which generated this result tra nsmitted reference range : <=0.3. The reference r leo was not used to int erpret this result as reji l/abnormal. [facility]2016-12-22 02:08:00 Test Item Value Reference Range Interpretation Comments Bili Indirect (test 0.1 See_Comment [Automa rohit message] The code = Bili Indirect) system which generated this result tra nsmitted reference range : <=1.0. The reference r leo was not used to int erpret this result as normal/abnormal . [facility]2016-12-22 02:08:00 Test Item Value Reference Range Interpretation Comments Total Protein (test code = Total 5.7 6.4-8.4 Protein) [facility]2016-12-22 02:08:00 Test Item Value Reference Range Interpretation Comments A/G Ratio (test code = A/G Ratio) 0.5 0.7-1.6 [place] [id number] 02:08:00 Test Item Value Reference Range Interpretation Comments Albumin Lvl (test code = Albumin Lvl) 1.8 3.5-5.0 [facility]2016-12-22 02:08:00 Test Item Value Reference Range Interpretation Comments Globulin (test code = Globulin) 3.9 2.7-4.2 [facility]2016-12-22 02:08:00 Test Item Value Reference Range Interpretation Comments Alk Phos (test code = Alk Phos) 99 39-136 [facility]2016-12-22 02:08:00 Test Item Value Reference Range Interpretation Comments AST (test code = AST) 21 See_Comment [Auto mated message] The system which ge nerated this result transmit rohit reference range : <=37. The reference range was not used to interpr et this result as reji l/abnormal. [facility] [id number] 02:08:00 Test Item Value Reference Range Interpretation Comments ALT (test code = ALT) 17 See_Comment [Auto mated message] The system which ge nerated this result transmit rohit reference range : <=65. The reference range was not used to interpr et this result as reji l/abnormal. [facility] [id number] 02:08:00 Test Item Value Reference Range Interpretation Comments UDS Note (test code = See Note *NA*(06/10/16 UDS Note) 8:08 PM) [facility] [id number] 02:08:00 Test Item Value Reference Range Interpretation Comments U Propoxyph Scr (test Negative *NA*(06/10/16 code = U Propoxyph Scr) 8:08 PM) [facility] [id number] 02:08:00 Test Item Value Reference Range Interpretation Comments U Opiate Scr (test Negative *NA*(06/10/16 code = U Opiate Scr) 8:08 PM) [facility] [id number] 02:08:00 Test Item Value Reference Range Interpretation Comments U Methadone Scr (test Negative *NA*(06/10/16 code = U Methadone Scr) 8:08 PM) [facility] [id number] 02:08:00 Test Item Value Reference Range Interpretation Comments U Phencyc Scr (test Negative *NA*(06/10/16 code = U Phencyc Scr) 8:08 PM) [facility] [id number] 02:08:00 Test Item Value Reference Range Interpretation Comments U Cannab Scr (test Negative *NA*(06/10/16 code = U Cannab Scr) 8:08 PM) [facility] [id number] 02:08:00 Test Item Value Reference Range Interpretation Comments U Amph Scr (test code Negative *NA*(06/10/16 = U Amph Scr) 8:08 PM) [facility] [id number] 02:08:00 Test Item Value Reference Range Interpretation Comments U Kelly Scr (test code Negative *NA*(06/10/16 = U Kelly Scr) 8:08 PM) [facility] [id number] 02:08:00 Test Item Value Reference Range Interpretation Comments U Benzodia Scr (test Negative *NA*(06/10/16 code = U Benzodia Scr) 8:08 PM) [facility] [id number] 02:08:00 Test Item Value Reference Range Interpretation Comments U Cocaine Scr (test Negative *NA*(06/10/16 code = U Cocaine Scr) 8:08 PM) [facility] [id number] 02:08:00 Test Item Value Reference Range Interpretation Comments LDL (Calculated) (test code = LDL 75 (Calculated)) [facility] [id number] 02:08:00 Test Item Value Reference Range Interpretation Comments VLDL (test code = VLDL) 27 [facility] [id number] 02:08:00 Test Item Value Reference Range Interpretation Comments Chol (test code = Chol) 133 [facility] [id number] 02:08:00 Test Item Value Reference Range Interpretation Comments Trig (test code = Trig) 133 [facility] [id number] 02:08:00 Test Item Value Reference Range Interpretation Comments CHD Risk (test code = CHD Risk) 4.29 3.90-5.80 [facility] [id number] 02:08:00 Test Item Value Reference Range Interpretation Comments HDL (test code = HDL) 31 [facility] AND [id number] 02:08:00 Test Item Value Reference Range Interpretation Comments UA Urobilinogen (test code = UA <=1.0 mg/dL 0.1-1.0 Urobilinogen) [facility] AND [id number] 02:08:00 Test Item Value Reference Range Interpretation Comments UA Ketones (test code = UA Negative mg/dL Ketones) [facility]ann[facility] AND [id number] 02:08:00 Test Item Value Reference Range Interpretation Comments UA Glucose (test code = UA Glucose) 300 mg/dL [facility] StationannKESS[facility] AND [id number] 02:08:00 Test Item Value Reference Range Interpretation Comments UA Protein (test code = UA >=300 mg/dL Protein) [facility]annK[facility] AND [id number] 02:08:00 Test Item Value Reference Range Interpretation Comments UA pH (test code = UA pH) 6.0 5.0-8.0 [facility] AND [id number] 02:08:00 Test Item Value Reference Range Interpretation Comments UA Nitrite (test code Negative (06/10/16 8:08 = UA Nitrite) PM) [facility] AND [id number] 02:08:00 Test Item Value Reference Range Interpretation Comments UA Blood (test code = Trace *ABN*(06/10/16 UA Blood) 8:08 PM) [facility] AND [id number] 02:08:00 Test Item Value Reference Range Interpretation Comments UA Bili (test code = Negative *NA*(06/10/16 UA Bili) 8:08 PM) [facility] AND [id number] 02:08:00 Test Item Value Reference Range Interpretation Comments UA Mucus (test code = UA Mucus) Few /LPF [facility] AND [id number] 02:08:00 Test Item Value Reference Range Interpretation Comments UA RBC (test code = 4 See_Comment [Automa rohit message] The UA RBC) system which ge nerated this result transmit rohit reference range : <=2. The reference range was not used to interpr et this result as reji l/abnormal. [facility] AND [id number] 02:08:00 Test Item Value Reference Range Interpretation Comments UA Sq Epi (test code = UA Sq Epi) Few /LPF [facility] AND [id number] 02:08:00 Test Item Value Reference Range Interpretation Comments UA WBC (test code = 5 See_Comment [Automa rohit message] The UA WBC) system which ge nerated this result transmit rohit reference range : <=5. The reference range was not used to interpr et this result as reji l/abnormal. [facility] AND [id number] 02:08:00 Test Item Value Reference Range Interpretation Comments UA Leuk Est (test code Small *ABN*(06/10/16 = UA Leuk Est) 8:08 PM) [facility] AND [id number] 02:08:00 Test Item Value Reference Range Interpretation Comments UA Hyal Cast (test 1 See_Comment [Automat ed message] The code = UA Hyal Cast) system which generated this result transmit rohit reference range : <=2. The reference range was not used to interpr et this result as reji l/abnormal. [facility] [id number] 02:08:00 Test Item Value Reference Range Interpretation Comments UA Spec Grav (test code = UA Spec Grav) 1.009 [facility] [id number] 02:08:00 Test Item Value Reference Range Interpretation Comments UA Color (test code = Yellow *NA*(06/10/16 UA Color) 8:08 PM) [facility] AND [id number] 02:08:00 Test Item Value Reference Range Interpretation Comments UA Turbidity (test code = Clear (06/10/16 8:08 UA Turbidity) PM) [facility] [id number] 02:08:00 Test Item Value Reference Range Interpretation Comments U Preg (test code = U Negative (06/10/16 8:08 Preg) PM) [facility] [id number] 02:08:00 Test Item Value Reference Range Interpretation Comments U Protein (test code = U Protein) 375.4 [facility] [id number] 02:08:00 Test Item Value Reference Range Interpretation Comments U Prot/Creat (test code = U Prot/Creat) 5.4 [facility] [id number] 02:08:00 Test Item Value Reference Range Interpretation Comments U Creatinine (test code = U Creatinine) 69.80 [facility] [id number] 16:53:00 Test Item Value Reference Range Interpretation Comments BNP (test code = BNP) 1135 [facility] [id number] 16:53:00 Test Item Value Reference Range Interpretation Comments Troponin-I (test code no gt See_Comment [Auto mated message] The = Troponin-I) system which g enerated this result transmit rohit reference range : <=0.40. The reference r leo was not used to interpr et this result as reji l/abnormal. [facility] [employer] AppsannCARDIAC [id number] 16:53:00 Test Item Value Reference Range Interpretation Comments BNP (test code = BNP) 1135 [facility] [employer] AppsannCARDIAC [id number] 16:53:00 Test Item Value Reference Range Interpretation Comments Troponin-I (test code no gt See_Comment [Auto mated message] The = Troponin-I) system which g enerated this result transmit rohit reference range : <=0.40. The reference r leo was not used to interpr et this result as reji l/abnormal. [facility] [employer]2016-12-21 16:53:00 Test Item Value Reference Range Interpretation Comments BNP (test code = BNP) 1135 [facility] [employer]2016-12-21 16:53:00 Test Item Value Reference Range Interpretation Comments Troponin-I (test code no gt See_Comment [Auto mated message] The = Troponin-I) system which g enerated this result transmit rohit reference range : <=0.40. The reference r leo was not used to interpr et this result as reji l/abnormal. [facility] [employer]2016-12-21 16:53:00 Test Item Value Reference Range Interpretation Comments BNP (test code = BNP) 1135 [facility] [employer]2016-12-21 16:53:00 Test Item Value Reference Range Interpretation Comments Troponin-I (test code no gt See_Comment [Auto mated message] The = Troponin-I) system which g enerated this result transmit rohit reference range : <=0.40. The reference r leo was not used to interpr et this result as reji l/abnormal. [facility] [employer]2016-12-21 16:53:00 Test Item Value Reference Range Interpretation Comments BNP (test code = BNP) 1135 [facility] [employer]2016-12-21 16:53:00 Test Item Value Reference Range Interpretation Comments Troponin-I (test code no gt See_Comment [Auto mated message] The = Troponin-I) system which g enerated this result transmit rohit reference range : <=0.40. The reference r leo was not used to interpr et this result as reji l/abnormal. [facility] [employer] [id number] 13:02:00 Test Item Value Reference Range Interpretation Comments Lactic Acid WB (test code = Lactic Acid 0.9 0.5-2.2 WB) [facility] [employer] [id number] 13:02:00 Test Item Value Reference Range Interpretation Comments Lactic Acid WB (test code = Lactic Acid 0.9 0.5-2.2 WB) [facility]2015-01-06 13:02:00 Test Item Value Reference Range Interpretation Comments Lactic Acid WB (test code = Lactic Acid 0.9 0.5-2.2 WB) [place] [id number] 13:02:00 Test Item Value Reference Range Interpretation Comments Lactic Acid WB (test code = Lactic Acid 0.9 0.5-2.2 WB) [place] [id number] 13:02:00 Test Item Value Reference Range Interpretation Comments Lactic Acid WB (test code = Lactic Acid 0.9 0.5-2.2 WB) [place] [id number] 12:29:44 Test Item Value Reference Range Interpretation Comments Valproic Acid Lvl (test code = Valproic 10 50-100 Acid Lvl) [place] [id number] 12:29:44 Test Item Value Reference Range Interpretation Comments Valproic Acid Lvl (test code = Valproic 10 50-100 Acid Lvl) [place] [id number] 12:29:44 Test Item Value Reference Range Interpretation Comments Valproic Acid Lvl (test code = Valproic 10 50-100 Acid Lvl) [place] [id number] 12:29:44 Test Item Value Reference Range Interpretation Comments Valproic Acid Lvl (test code = Valproic 10 50-100 Acid Lvl) [place] [id number] 12:29:44 Test Item Value Reference Range Interpretation Comments Valproic Acid Lvl (test code = Valproic 10 50-100 Acid Lvl) [place] [id number] 11:21:27 Test Item Value Reference Range Interpretation Comments hCG Tot (test code = hCG Tot) 1 [place] [id number] 11:21:27 Test Item Value Reference Range Interpretation Comments hCG Tot (test code = hCG Tot) 1 [place] [id number] 11:21:27 Test Item Value Reference Range Interpretation Comments hCG Tot (test code = hCG Tot) 1 [place] [id number] 11:21:27 Test Item Value Reference Range Interpretation Comments hCG Tot (test code = hCG Tot) 1 [id number] 11:21:27 Test Item Value Reference Range Interpretation Comments hCG Tot (test code = hCG Tot) 1 [facility]2015-01-06 11:21:00 Test Item Value Reference Range Interpretation Comments Albumin Lvl (test code = Albumin Lvl) 3.2 3.5-5.0 [facility]2015-01-06 11:21:00 Test Item Value Reference Range Interpretation Comments Total Protein (test code = Total 6.6 6.4-8.4 Protein) [facility]2015-01-06 11:21:00 Test Item Value Reference Range Interpretation Comments Bili Total (test code = Bili Total) 0.6 0.2-1.3 [facility]2015-01-06 11:21:00 Test Item Value Reference Range Interpretation Comments Alk Phos (test code = Alk Phos) 59 39-136 [facility]2015-01-06 11:21:00 Test Item Value Reference Range Interpretation Comments AST (test code = AST) 11 See_Comment [Auto mated message] The system which ge nerated this result transmit rohit reference range : <=37. The reference range was not used to interpr et this result as reji l/abnormal. [facility]2015-01-06 11:21:00 Test Item Value Reference Range Interpretation Comments ALT (test code = ALT) 17 See_Comment [Auto mated message] The system which ge nerated this result transmit rohit reference range : <=65. The reference range was not used to interpr et this result as reji l/abnormal. [facility]2015-01-06 11:21:00 Test Item Value Reference Range Interpretation Comments eGFR (test code = eGFR) 99 [facility]2015-01-06 11:21:00 Test Item Value Reference Range Interpretation Comments Glucose Lvl (test code = Glucose Lvl) 314 70-99 [facility]2015-01-06 11:21:00 Test Item Value Reference Range Interpretation Comments Potassium Lvl (test code = Potassium 3.4 3.5-5.1 Lvl) [facility]2015-01-06 11:21:00 Test Item Value Reference Range Interpretation Comments BUN (test code = BUN) 11 7-22 [facility]2015-01-06 11:21:00 Test Item Value Reference Range Interpretation Comments Creatinine Lvl (test code = Creatinine 0.8 0.5-1.4 Lvl) [facility]2015-01-06 11:21:00 Test Item Value Reference Range Interpretation Comments Sodium Lvl (test code = Sodium Lvl) 134 135-145 [facility]2015-01-06 11:21:00 Test Item Value Reference Range Interpretation Comments Chloride Lvl (test code = Chloride Lvl) 94 95-109 [facility]2015-01-06 11:21:00 Test Item Value Reference Range Interpretation Comments Calcium Lvl (test code = Calcium Lvl) 9.1 8.5-10.5 [facility]2015-01-06 11:21:00 Test Item Value Reference Range Interpretation Comments CO2 (test code = CO2) 24 24-32 [facility]2015-01-06 11:21:00 Test Item Value Reference Range Interpretation Comments A/G Ratio (test code = A/G Ratio) 0.9 0.7-1.6 [facility]2015-01-06 11:21:00 Test Item Value Reference Range Interpretation Comments Globulin (test code = Globulin) 3.4 2.0-4.0 [facility]2015-01-06 11:21:00 Test Item Value Reference Range Interpretation Comments B/C Ratio (test code = B/C Ratio) 14 6-25 [facility]2015-01-06 11:21:00 Test Item Value Reference Range Interpretation Comments AGAP (test code = AGAP) 19.4 10.0-20.0 [facility]2015-01-06 11:21:00 Test Item Value Reference Range Interpretation Comments Lipase Lvl (test code = Lipase Lvl) 81 73-393 [facility]QewagzeMKQLUUWFLC5388-10-01 11:21:00 Test Item Value Reference Range Interpretation Comments Large Plt (test code = Large Plt) Slight [facility]anoWipjhvkCHHSINGIEM8726-12-84 11:21:00 Test Item Value Reference Range Interpretation Comments Basophils # (test code 0.0 See_Comment [Aut omated message] The = Basophils #) system which generated this result tra nsmitted reference range : <=0.2. The reference r leo was not used to int erpret this result as normal/abnormal . [id number] 11:21:00 Test Item Value Reference Range Interpretation Comments Anisocyte (test code = 1+ *ABN*(06/26/14 5:21 Anisocyte) AM) [facility]anoVwfrwbpPZIZTPISZY5985-45-21 11:21:00 Test Item Value Reference Range Interpretation Comments Monocytes # (test code 0.6 See_Comment [Aut omated message] The = Monocytes #) system which generated this result tra nsmitted reference range : <=0.8. The reference r leo was not used to int erpret this result as normal/abnormal . [facility]anoIgbjshkNEQKQNLHSR1990-41-22 11:21:00 Test Item Value Reference Range Interpretation Comments Eosinophils # (test code 0.1 See_Comment [A utomated message] The = Eosinophils #) system whic h generated this result tra nsmitted reference range : <=0.5. The reference r leo was not used to int erpret this result as normal/abnormal . [facility]anoMzhcwdiELSZTTYQOH9032-97-68 11:21:00 Test Item Value Reference Range Interpretation Comments Lymphocytes # (test code = Lymphocytes 2.5 1.0-5.5 #) [facility]anoVqhfbemIDUGEOHURJ8340-69-96 11:21:00 Test Item Value Reference Range Interpretation Comments Segs (test code = Segs) 63.3 45.0-75.0 [facility]anoRwaezknTQIQEGTENG5101-27-88 11:21:00 Test Item Value Reference Range Interpretation Comments Segs-Bands # (test code = Segs-Bands #) 5.6 1.5-8.1 [facility]anoYtzqzqtBJMBTIXTEX2218-81-34 11:21:00 Test Item Value Reference Range Interpretation Comments Basophils (test code = 0.0 See_Comment [Aut omated message] The Basophils) system which ge nerated this result tra nsmitted reference range : <=1.0. The reference r leo was not used to int erpret this result as normal/abnormal . [facility]anoJjsxayrSYOQEOFJSD5399-74-87 11:21:00 Test Item Value Reference Range Interpretation Comments Eosinophils (test code = 0.9 See_Comment [A utomated message] The Eosinophils) system which ge nerated this result tra nsmitted reference range : <=4.0. The reference r leo was not used to int erpret this result as normal/abnormal . [facility]anoJdoeruiYRYTKCEUJE8334-94-39 11:21:00 Test Item Value Reference Range Interpretation Comments Monocytes (test code = Monocytes) 7.0 2.0-12.0 [facility]anoGexukdxVVOGTOAEBM2398-71-61 11:21:00 Test Item Value Reference Range Interpretation Comments Lymphocytes (test code = Lymphocytes) 28.8 20.0-40.0 [facility]anoAfsczzcMVDUVDWNTX8454-19-14 11:21:00 Test Item Value Reference Range Interpretation Comments WBC (test code = WBC) 8.8 3.7-10.4 [facility]anoUgzegajGCGGIMNMYX9083-22-16 11:21:00 Test Item Value Reference Range Interpretation Comments RBC (test code = RBC) 5.19 4.20-5.40 [facility] PlanoZujskoeAJOZOAXCJF6145-81-92 11:21:00 Test Item Value Reference Range Interpretation Comments Hgb (test code = Hgb) 14.4 12.0-16.0 [facility]anoFhodkivJTOJSPSRRD9911-58-14 11:21:00 Test Item Value Reference Range Interpretation Comments Hct (test code = Hct) 43.1 36.0-48.0 [facility] PlanoRjpuzsvOAYMKPJJBS1862-15-34 11:21:00 Test Item Value Reference Range Interpretation Comments MCV (test code = MCV) 83.1 80.0-98.0 [facility]anoMuxspvlCBDJCNPDGE7071-98-22 11:21:00 Test Item Value Reference Range Interpretation Comments MCH (test code = MCH) 27.8 pg 27.0-31.0 [facility]anoQsuvgwaINSNQFUBYU8061-19-58 11:21:00 Test Item Value Reference Range Interpretation Comments RDW (test code = RDW) 13.1 11.5-14.5 [facility]anoWigkgytKXDHQINIQI2539-74-77 11:21:00 Test Item Value Reference Range Interpretation Comments MCHC (test code = MCHC) 33.5 32.0-36.0 [facility]anoIhsipkoIAGVMJALLJ1379-40-36 11:21:00 Test Item Value Reference Range Interpretation Comments Platelet (test code = Platelet) 201 133-450 [facility]anoPaqejlzBCAKAVYYWD1555-12-26 11:21:00 Test Item Value Reference Range Interpretation Comments MPV (test code = MPV) 10.4 7.4-10.4 [facility]2015-01-06 11:21:00 Test Item Value Reference Range Interpretation Comments Albumin Lvl (test code = Albumin Lvl) 3.2 3.5-5.0 [facility]2015-01-06 11:21:00 Test Item Value Reference Range Interpretation Comments Total Protein (test code = Total 6.6 6.4-8.4 Protein) [facility]2015-01-06 11:21:00 Test Item Value Reference Range Interpretation Comments Bili Total (test code = Bili Total) 0.6 0.2-1.3 [facility]2015-01-06 11:21:00 Test Item Value Reference Range Interpretation Comments Alk Phos (test code = Alk Phos) 59 39-136 [facility]2015-01-06 11:21:00 Test Item Value Reference Range Interpretation Comments AST (test code = AST) 11 See_Comment [Auto mated message] The system which ge nerated this result transmit rohit reference range : <=37. The reference range was not used to interpr et this result as reji l/abnormal. [facility]2015-01-06 11:21:00 Test Item Value Reference Range Interpretation Comments ALT (test code = ALT) 17 See_Comment [Auto mated message] The system which ge nerated this result transmit rohit reference range : <=65. The reference range was not used to interpr et this result as reji l/abnormal. [facility]2015-01-06 11:21:00 Test Item Value Reference Range Interpretation Comments eGFR (test code = eGFR) 99 [facility]2015-01-06 11:21:00 Test Item Value Reference Range Interpretation Comments Glucose Lvl (test code = Glucose Lvl) 314 70-99 [facility]2015-01-06 11:21:00 Test Item Value Reference Range Interpretation Comments Potassium Lvl (test code = Potassium 3.4 3.5-5.1 Lvl) [facility]2015-01-06 11:21:00 Test Item Value Reference Range Interpretation Comments BUN (test code = BUN) 11 7-22 [place] [id number] 11:21:00 Test Item Value Reference Range Interpretation Comments Creatinine Lvl (test code = Creatinine 0.8 0.5-1.4 Lvl) [facility]2015-01-06 11:21:00 Test Item Value Reference Range Interpretation Comments Sodium Lvl (test code = Sodium Lvl) 134 135-145 [facility]2015-01-06 11:21:00 Test Item Value Reference Range Interpretation Comments Chloride Lvl (test code = Chloride Lvl) 94 95-109 [facility]2015-01-06 11:21:00 Test Item Value Reference Range Interpretation Comments Calcium Lvl (test code = Calcium Lvl) 9.1 8.5-10.5 [facility]2015-01-06 11:21:00 Test Item Value Reference Range Interpretation Comments CO2 (test code = CO2) 24 24-32 [facility]2015-01-06 11:21:00 Test Item Value Reference Range Interpretation Comments A/G Ratio (test code = A/G Ratio) 0.9 0.7-1.6 [facility]2015-01-06 11:21:00 Test Item Value Reference Range Interpretation Comments Globulin (test code = Globulin) 3.4 2.0-4.0 [facility]2015-01-06 11:21:00 Test Item Value Reference Range Interpretation Comments B/C Ratio (test code = B/C Ratio) 14 6-25 [facility]2015-01-06 11:21:00 Test Item Value Reference Range Interpretation Comments AGAP (test code = AGAP) 19.4 10.0-20.0 [facility]2015-01-06 11:21:00 Test Item Value Reference Range Interpretation Comments Lipase Lvl (test code = Lipase Lvl) 81 73-393 [facility]anoPdrqlrgGLXNZTPQAD4129-33-20 11:21:00 Test Item Value Reference Range Interpretation Comments Large Plt (test code = Large Plt) [facility]anoKzsgnlzUKWGDKTMZI6032-15-48 11:21:00 Test Item Value Reference Range Interpretation Comments Basophils # (test code 0.0 See_Comment [Aut omated message] The = Basophils #) system which generated this result tra nsmitted reference range : <=0.2. The reference r leo was not used to int erpret this result as normal/abnormal . [facility]anoGwcycbePBLLQWJDCK6386-51-04 11:21:00 Test Item Value Reference Range Interpretation Comments Anisocyte (test code = 1+ *ABN*(06/26/14 5:21 Anisocyte) AM) [facility]anoVhadgiuKGFWCULTMI0897-40-63 11:21:00 Test Item Value Reference Range Interpretation Comments Monocytes # (test code 0.6 See_Comment [Aut omated message] The = Monocytes #) system which generated this result tra nsmitted reference range : <=0.8. The reference r leo was not used to int erpret this result as normal/abnormal . [facility] PlanoRhwskiwAQQNYEWBAO7067-31-53 11:21:00 Test Item Value Reference Range Interpretation Comments Eosinophils # (test code 0.1 See_Comment [A utomated message] The = Eosinophils #) system whic h generated this result tra nsmitted reference range : <=0.5. The reference r leo was not used to int erpret this result as normal/abnormal . [facility] PlanoIyvwoiyJLJKZIVNAT0844-01-94 11:21:00 Test Item Value Reference Range Interpretation Comments Lymphocytes # (test code = Lymphocytes 2.5 1.0-5.5 #) [facility]anoVxwrawiKNQOFLJGHN7088-77-85 11:21:00 Test Item Value Reference Range Interpretation Comments Segs (test code = Segs) 63.3 45.0-75.0 [facility]anoSpfnsbdGRDUSKTFOK9308-77-32 11:21:00 Test Item Value Reference Range Interpretation Comments Segs-Bands # (test code = Segs-Bands #) 5.6 1.5-8.1 [facility] PlanoKbeosliDBNGSSYOZL9741-07-01 11:21:00 Test Item Value Reference Range Interpretation Comments Basophils (test code = 0.0 See_Comment [Aut omated message] The Basophils) system which ge nerated this result tra nsmitted reference range : <=1.0. The reference r leo was not used to int erpret this result as normal/abnormal . [facility] PlanoCauicgxGLXYRGULAP8849-26-19 11:21:00 Test Item Value Reference Range Interpretation Comments Eosinophils (test code = 0.9 See_Comment [A utomated message] The Eosinophils) system which ge nerated this result tra nsmitted reference range : <=4.0. The reference r leo was not used to int erpret this result as normal/abnormal . [facility] PlanoRevhjkrYHOYENHNIK6277-18-84 11:21:00 Test Item Value Reference Range Interpretation Comments Monocytes (test code = Monocytes) 7.0 2.0-12.0 [facility]anoGruhapvYXMWQSEEXQ8809-94-19 11:21:00 Test Item Value Reference Range Interpretation Comments Lymphocytes (test code = Lymphocytes) 28.8 20.0-40.0 [facility]anoFdrppdhHHQJDWHANH8878-98-06 11:21:00 Test Item Value Reference Range Interpretation Comments WBC (test code = WBC) 8.8 3.7-10.4 [facility] PlanoNvckkusGZIKPYJMPD3463-10-43 11:21:00 Test Item Value Reference Range Interpretation Comments RBC (test code = RBC) 5.19 4.20-5.40 [facility]anoPgxzbwiFSRXHULYSW6580-04-49 11:21:00 Test Item Value Reference Range Interpretation Comments Hgb (test code = Hgb) 14.4 12.0-16.0 [facility]anoEghucwaWSQFFYOWGP1021-58-26 11:21:00 Test Item Value Reference Range Interpretation Comments Hct (test code = Hct) 43.1 36.0-48.0 [facility] PlanoUgacuwyBIBMEFHGML2701-12-14 11:21:00 Test Item Value Reference Range Interpretation Comments MCV (test code = MCV) 83.1 80.0-98.0 [facility] PlanoNisfjnrEKOBSRKPMA4043-49-25 11:21:00 Test Item Value Reference Range Interpretation Comments MCH (test code = MCH) 27.8 pg 27.0-31.0 [facility]anoChhbyvfDJYFJODWPU4400-85-12 11:21:00 Test Item Value Reference Range Interpretation Comments RDW (test code = RDW) 13.1 11.5-14.5 [facility] PlanoZdcxogmZNIBXNIEVM4989-79-22 11:21:00 Test Item Value Reference Range Interpretation Comments MCHC (test code = MCHC) 33.5 32.0-36.0 [facility] PlanoHgeorkgOISEHCLSLQ2873-27-46 11:21:00 Test Item Value Reference Range Interpretation Comments Platelet (test code = Platelet) 201 133-450 [facility] PlanoItshfqmBYTVVOVORW6165-66-10 11:21:00 Test Item Value Reference Range Interpretation Comments MPV (test code = MPV) 10.4 7.4-10.4 [facility]2015-01-06 11:21:00 Test Item Value Reference Range Interpretation Comments Albumin Lvl (test code = Albumin Lvl) 3.2 3.5-5.0 [facility]2015-01-06 11:21:00 Test Item Value Reference Range Interpretation Comments Total Protein (test code = Total 6.6 6.4-8.4 Protein) [facility]2015-01-06 11:21:00 Test Item Value Reference Range Interpretation Comments Bili Total (test code = Bili Total) 0.6 0.2-1.3 [facility]2015-01-06 11:21:00 Test Item Value Reference Range Interpretation Comments Alk Phos (test code = Alk Phos) 59 39-136 [facility]2015-01-06 11:21:00 Test Item Value Reference Range Interpretation Comments AST (test code = AST) 11 See_Comment [Auto mated message] The system which ge nerated this result transmit rohit reference range : <=37. The reference range was not used to interpr et this result as reji l/abnormal. [facility]2015-01-06 11:21:00 Test Item Value Reference Range Interpretation Comments ALT (test code = ALT) 17 See_Comment [Auto mated message] The system which ge nerated this result transmit rohit reference range : <=65. The reference range was not used to interpr et this result as reji l/abnormal. [facility]2015-01-06 11:21:00 Test Item Value Reference Range Interpretation Comments eGFR (test code = eGFR) 99 [facility]2015-01-06 11:21:00 Test Item Value Reference Range Interpretation Comments Glucose Lvl (test code = Glucose Lvl) 314 70-99 [facility]2015-01-06 11:21:00 Test Item Value Reference Range Interpretation Comments Potassium Lvl (test code = Potassium 3.4 3.5-5.1 Lvl) [facility]2015-01-06 11:21:00 Test Item Value Reference Range Interpretation Comments BUN (test code = BUN) 11 7-22 [facility]2015-01-06 11:21:00 Test Item Value Reference Range Interpretation Comments Creatinine Lvl (test code = Creatinine 0.8 0.5-1.4 Lvl) [facility]2015-01-06 11:21:00 Test Item Value Reference Range Interpretation Comments Sodium Lvl (test code = Sodium Lvl) 134 135-145 [facility]2015-01-06 11:21:00 Test Item Value Reference Range Interpretation Comments Chloride Lvl (test code = Chloride Lvl) 94 95-109 [facility]2015-01-06 11:21:00 Test Item Value Reference Range Interpretation Comments Calcium Lvl (test code = Calcium Lvl) 9.1 8.5-10.5 [facility]2015-01-06 11:21:00 Test Item Value Reference Range Interpretation Comments CO2 (test code = CO2) 24 24-32 [facility]2015-01-06 11:21:00 Test Item Value Reference Range Interpretation Comments A/G Ratio (test code = A/G Ratio) 0.9 0.7-1.6 [facility]2015-01-06 11:21:00 Test Item Value Reference Range Interpretation Comments Globulin (test code = Globulin) 3.4 2.0-4.0 [facility]2015-01-06 11:21:00 Test Item Value Reference Range Interpretation Comments B/C Ratio (test code = B/C Ratio) 14 6-25 [facility]2015-01-06 11:21:00 Test Item Value Reference Range Interpretation Comments AGAP (test code = AGAP) 19.4 10.0-20.0 [facility]2015-01-06 11:21:00 Test Item Value Reference Range Interpretation Comments Lipase Lvl (test code = Lipase Lvl) 81 73-393 [facility]WvukusuKXTTSPYMQT0986-29-31 11:21:00 Test Item Value Reference Range Interpretation Comments Large Plt (test code = Large Plt) Slight [facility]anoLhboxjxFNHKPZWSKQ6791-55-26 11:21:00 Test Item Value Reference Range Interpretation Comments Basophils # (test code 0.0 See_Comment [Aut omated message] The = Basophils #) system which generated this result tra nsmitted reference range : <=0.2. The reference r leo was not used to int erpret this result as normal/abnormal . [facility]anoLbnpykgUWNGRWHXFT0549-59-19 11:21:00 Test Item Value Reference Range Interpretation Comments Anisocyte (test code = 1+ *ABN*(06/26/14 5:21 Anisocyte) AM) [facility]anoPcjkiqjICVNJLZNRL7559-53-11 11:21:00 Test Item Value Reference Range Interpretation Comments Monocytes # (test code 0.6 See_Comment [Aut omated message] The = Monocytes #) system which generated this result tra nsmitted reference range : <=0.8. The reference r leo was not used to int erpret this result as normal/abnormal . [facility]anoPzzffyoZMWOGQJPIL2786-08-53 11:21:00 Test Item Value Reference Range Interpretation Comments Eosinophils # (test code 0.1 See_Comment [A utomated message] The = Eosinophils #) system whic h generated this result tra nsmitted reference range : <=0.5. The reference r leo was not used to int erpret this result as normal/abnormal . [facility]anoGgztlicBQBVGKTCHE3140-80-44 11:21:00 Test Item Value Reference Range Interpretation Comments Lymphocytes # (test code = Lymphocytes 2.5 1.0-5.5 #) [facility]anoBchhpbdWRVZLLPGNI1891-28-98 11:21:00 Test Item Value Reference Range Interpretation Comments Segs (test code = Segs) 63.3 45.0-75.0 [facility]anoFydrggnXEZRXOIFVZ5840-00-58 11:21:00 Test Item Value Reference Range Interpretation Comments Segs-Bands # (test code = Segs-Bands #) 5.6 1.5-8.1 [facility]anoMmcxbrgARIVQAMOSD0949-66-29 11:21:00 Test Item Value Reference Range Interpretation Comments Basophils (test code = 0.0 See_Comment [Aut omated message] The Basophils) system which ge nerated this result tra nsmitted reference range : <=1.0. The reference r leo was not used to int erpret this result as normal/abnormal . [facility]anoOcklnheTHEJQVHJHF9918-04-37 11:21:00 Test Item Value Reference Range Interpretation Comments Eosinophils (test code = 0.9 See_Comment [A utomated message] The Eosinophils) system which ge nerated this result tra nsmitted reference range : <=4.0. The reference r leo was not used to int erpret this result as normal/abnormal . [facility]anoLexhefzPHEZRSOYYE8814-79-46 11:21:00 Test Item Value Reference Range Interpretation Comments Monocytes (test code = Monocytes) 7.0 2.0-12.0 [facility]anoCqvourdOLHEEMQCWP2275-94-94 11:21:00 Test Item Value Reference Range Interpretation Comments Lymphocytes (test code = Lymphocytes) 28.8 20.0-40.0 [facility]anoDjavdpnXULPKRSNXG6800-53-50 11:21:00 Test Item Value Reference Range Interpretation Comments WBC (test code = WBC) 8.8 3.7-10.4 [facility]anoTbxpityRBVCFNMCME6037-93-18 11:21:00 Test Item Value Reference Range Interpretation Comments RBC (test code = RBC) 5.19 4.20-5.40 [facility]anoOwsiecfNUKWBBESTS5267-79-26 11:21:00 Test Item Value Reference Range Interpretation Comments Hgb (test code = Hgb) 14.4 12.0-16.0 [facility]anoVjmoekzAUCQSDRRXD8276-71-41 11:21:00 Test Item Value Reference Range Interpretation Comments Hct (test code = Hct) 43.1 36.0-48.0 [facility]anoHrvgcvdDKTBFGXYBP0296-19-43 11:21:00 Test Item Value Reference Range Interpretation Comments MCV (test code = MCV) 83.1 80.0-98.0 [facility]anoXczraswXVOKAPEUMG5757-01-18 11:21:00 Test Item Value Reference Range Interpretation Comments MCH (test code = MCH) 27.8 pg 27.0-31.0 [facility]anoCaibbhlRRFSTPTAVI9774-25-80 11:21:00 Test Item Value Reference Range Interpretation Comments RDW (test code = RDW) 13.1 11.5-14.5 [facility]anoTycsnysWCVJOENMGW4215-42-17 11:21:00 Test Item Value Reference Range Interpretation Comments MCHC (test code = MCHC) 33.5 32.0-36.0 [facility]anoNixgfydTUTZBIYEWY5784-92-76 11:21:00 Test Item Value Reference Range Interpretation Comments Platelet (test code = Platelet) 201 133-450 [facility]anoWjbnfkvDRPLHYGRBQ5081-30-52 11:21:00 Test Item Value Reference Range Interpretation Comments MPV (test code = MPV) 10.4 7.4-10.4 [facility]2015-01-06 11:21:00 Test Item Value Reference Range Interpretation Comments Albumin Lvl (test code = Albumin Lvl) 3.2 3.5-5.0 [facility]2015-01-06 11:21:00 Test Item Value Reference Range Interpretation Comments Total Protein (test code = Total 6.6 6.4-8.4 Protein) [facility]2015-01-06 11:21:00 Test Item Value Reference Range Interpretation Comments Bili Total (test code = Bili Total) 0.6 0.2-1.3 [facility]2015-01-06 11:21:00 Test Item Value Reference Range Interpretation Comments Alk Phos (test code = Alk Phos) 59 39-136 [facility]2015-01-06 11:21:00 Test Item Value Reference Range Interpretation Comments AST (test code = AST) 11 See_Comment [Auto mated message] The system which ge nerated this result transmit rohit reference range : <=37. The reference range was not used to interpr et this result as reji l/abnormal. [facility]2015-01-06 11:21:00 Test Item Value Reference Range Interpretation Comments ALT (test code = ALT) 17 See_Comment [Auto mated message] The system which ge nerated this result transmit rohit reference range : <=65. The reference range was not used to interpr et this result as reji l/abnormal. [facility]2015-01-06 11:21:00 Test Item Value Reference Range Interpretation Comments eGFR (test code = eGFR) 99 [facility]2015-01-06 11:21:00 Test Item Value Reference Range Interpretation Comments Glucose Lvl (test code = Glucose Lvl) 314 70-99 [facility]2015-01-06 11:21:00 Test Item Value Reference Range Interpretation Comments Potassium Lvl (test code = Potassium 3.4 3.5-5.1 Lvl) [facility]2015-01-06 11:21:00 Test Item Value Reference Range Interpretation Comments BUN (test code = BUN) 11 7-22 [facility]2015-01-06 11:21:00 Test Item Value Reference Range Interpretation Comments Creatinine Lvl (test code = Creatinine 0.8 0.5-1.4 Lvl) [facility]2015-01-06 11:21:00 Test Item Value Reference Range Interpretation Comments Sodium Lvl (test code = Sodium Lvl) 134 135-145 [facility]2015-01-06 11:21:00 Test Item Value Reference Range Interpretation Comments Chloride Lvl (test code = Chloride Lvl) 94 95-109 [facility]2015-01-06 11:21:00 Test Item Value Reference Range Interpretation Comments Calcium Lvl (test code = Calcium Lvl) 9.1 8.5-10.5 [facility]2015-01-06 11:21:00 Test Item Value Reference Range Interpretation Comments CO2 (test code = CO2) 24 24-32 [facility]2015-01-06 11:21:00 Test Item Value Reference Range Interpretation Comments A/G Ratio (test code = A/G Ratio) 0.9 0.7-1.6 [facility]2015-01-06 11:21:00 Test Item Value Reference Range Interpretation Comments Globulin (test code = Globulin) 3.4 2.0-4.0 [facility]2015-01-06 11:21:00 Test Item Value Reference Range Interpretation Comments B/C Ratio (test code = B/C Ratio) 14 6-25 [facility]2015-01-06 11:21:00 Test Item Value Reference Range Interpretation Comments AGAP (test code = AGAP) 19.4 10.0-20.0 [facility]2015-01-06 11:21:00 Test Item Value Reference Range Interpretation Comments Lipase Lvl (test code = Lipase Lvl) 81 73-393 [facility]anoZoudgjoLGPHCFVUXB3992-42-74 11:21:00 Test Item Value Reference Range Interpretation Comments Large Plt (test code = Large Plt) [facility]anoLwlaevcSAJOOOFQKF3504-48-65 11:21:00 Test Item Value Reference Range Interpretation Comments Basophils # (test code 0.0 See_Comment [Aut omated message] The = Basophils #) system which generated this result tra nsmitted reference range : <=0.2. The reference r leo was not used to int erpret this result as normal/abnormal . [facility]anoUuvdawaPLXQSTUVIF0340-34-18 11:21:00 Test Item Value Reference Range Interpretation Comments Anisocyte (test code = 1+ *ABN*(06/26/14 5:21 Anisocyte) AM) [facility]anoRdbtmqoZZMMPTNPJI8370-27-47 11:21:00 Test Item Value Reference Range Interpretation Comments Monocytes # (test code 0.6 See_Comment [Aut omated message] The = Monocytes #) system which generated this result tra nsmitted reference range : <=0.8. The reference r leo was not used to int erpret this result as normal/abnormal . [facility]anoGfwchoyRSZXIEVBSL0912-44-42 11:21:00 Test Item Value Reference Range Interpretation Comments Eosinophils # (test code 0.1 See_Comment [A utomated message] The = Eosinophils #) system whic h generated this result tra nsmitted reference range : <=0.5. The reference r leo was not used to int erpret this result as normal/abnormal . [facility] PlanoRksytlfCDGTFKUJGC4209-25-41 11:21:00 Test Item Value Reference Range Interpretation Comments Lymphocytes # (test code = Lymphocytes 2.5 1.0-5.5 #) [facility]anoVnvyfipPBSAWPVGBP1931-75-77 11:21:00 Test Item Value Reference Range Interpretation Comments Segs (test code = Segs) 63.3 45.0-75.0 [facility]anoSfxfaxdHYMNEJBVOO9129-75-69 11:21:00 Test Item Value Reference Range Interpretation Comments Segs-Bands # (test code = Segs-Bands #) 5.6 1.5-8.1 [facility]anoGcipwliMNUYAQPPLQ7237-83-03 11:21:00 Test Item Value Reference Range Interpretation Comments Basophils (test code = 0.0 See_Comment [Aut omated message] The Basophils) system which ge nerated this result tra nsmitted reference range : <=1.0. The reference r leo was not used to int erpret this result as normal/abnormal . [facility]anoIhobvqqKRMGLJINDJ8662-69-61 11:21:00 Test Item Value Reference Range Interpretation Comments Eosinophils (test code = 0.9 See_Comment [A utomated message] The Eosinophils) system which ge nerated this result tra nsmitted reference range : <=4.0. The reference r leo was not used to int erpret this result as normal/abnormal . [facility]anoNxyxfxcYPNBMHHVOQ1979-14-93 11:21:00 Test Item Value Reference Range Interpretation Comments Monocytes (test code = Monocytes) 7.0 2.0-12.0 [facility]anoRtkgzsrEMWKSNLZQY9103-30-01 11:21:00 Test Item Value Reference Range Interpretation Comments Lymphocytes (test code = Lymphocytes) 28.8 20.0-40.0 [facility]anoOkvyltfPCUIHVJBUT8468-23-37 11:21:00 Test Item Value Reference Range Interpretation Comments WBC (test code = WBC) 8.8 3.7-10.4 [facility]anoJqpnfjgBUQQGREISX7549-45-85 11:21:00 Test Item Value Reference Range Interpretation Comments RBC (test code = RBC) 5.19 4.20-5.40 [facility]anoHbmdgfzXTKFUWDLLO3270-24-92 11:21:00 Test Item Value Reference Range Interpretation Comments Hgb (test code = Hgb) 14.4 12.0-16.0 [facility] PlanoRtcjvgpPNZJWOXPIY3680-50-08 11:21:00 Test Item Value Reference Range Interpretation Comments Hct (test code = Hct) 43.1 36.0-48.0 [facility]anoNwufmgbZOCPEDJUBK5895-71-97 11:21:00 Test Item Value Reference Range Interpretation Comments MCV (test code = MCV) 83.1 80.0-98.0 [facility]anoBbsszkuOEKMAOZAVA5234-91-93 11:21:00 Test Item Value Reference Range Interpretation Comments MCH (test code = MCH) 27.8 pg 27.0-31.0 [facility]anoEcrnxitINWEKCFBJI6993-63-10 11:21:00 Test Item Value Reference Range Interpretation Comments RDW (test code = RDW) 13.1 11.5-14.5 [facility]anoNpflrvxNYWUTNMBVW5994-66-45 11:21:00 Test Item Value Reference Range Interpretation Comments MCHC (test code = MCHC) 33.5 32.0-36.0 [facility]anoPotscaxBHZPQNCCYU7048-95-23 11:21:00 Test Item Value Reference Range Interpretation Comments Platelet (test code = Platelet) 201 133-450 [facility]anoHulmrjzAUVEELFCBI7577-41-89 11:21:00 Test Item Value Reference Range Interpretation Comments MPV (test code = MPV) 10.4 7.4-10.4 [facility]2015-01-06 11:21:00 Test Item Value Reference Range Interpretation Comments Albumin Lvl (test code = Albumin Lvl) 3.2 3.5-5.0 [facility]2015-01-06 11:21:00 Test Item Value Reference Range Interpretation Comments Total Protein (test code = Total 6.6 6.4-8.4 Protein) [facility]2015-01-06 11:21:00 Test Item Value Reference Range Interpretation Comments Bili Total (test code = Bili Total) 0.6 0.2-1.3 [facility]2015-01-06 11:21:00 Test Item Value Reference Range Interpretation Comments Alk Phos (test code = Alk Phos) 59 39-136 [facility]2015-01-06 11:21:00 Test Item Value Reference Range Interpretation Comments AST (test code = AST) 11 See_Comment [Auto mated message] The system which ge nerated this result transmit rohit reference range : <=37. The reference range was not used to interpr et this result as reji l/abnormal. [facility]2015-01-06 11:21:00 Test Item Value Reference Range Interpretation Comments ALT (test code = ALT) 17 See_Comment [Auto mated message] The system which ge nerated this result transmit rohti reference range : <=65. The reference range was not used to interpr et this result as reji l/abnormal. [facility]2015-01-06 11:21:00 Test Item Value Reference Range Interpretation Comments eGFR (test code = eGFR) 99 [facility]2015-01-06 11:21:00 Test Item Value Reference Range Interpretation Comments Glucose Lvl (test code = Glucose Lvl) 314 70-99 [facility]2015-01-06 11:21:00 Test Item Value Reference Range Interpretation Comments Potassium Lvl (test code = Potassium 3.4 3.5-5.1 Lvl) [facility]2015-01-06 11:21:00 Test Item Value Reference Range Interpretation Comments BUN (test code = BUN) 11 7-22 [facility]2015-01-06 11:21:00 Test Item Value Reference Range Interpretation Comments Creatinine Lvl (test code = Creatinine 0.8 0.5-1.4 Lvl) [facility]2015-01-06 11:21:00 Test Item Value Reference Range Interpretation Comments Sodium Lvl (test code = Sodium Lvl) 134 135-145 [facility]2015-01-06 11:21:00 Test Item Value Reference Range Interpretation Comments Chloride Lvl (test code = Chloride Lvl) 94 95-109 [facility]2015-01-06 11:21:00 Test Item Value Reference Range Interpretation Comments Calcium Lvl (test code = Calcium Lvl) 9.1 8.5-10.5 [facility]2015-01-06 11:21:00 Test Item Value Reference Range Interpretation Comments CO2 (test code = CO2) 24 24-32 [facility]2015-01-06 11:21:00 Test Item Value Reference Range Interpretation Comments A/G Ratio (test code = A/G Ratio) 0.9 0.7-1.6 [facility]2015-01-06 11:21:00 Test Item Value Reference Range Interpretation Comments Globulin (test code = Globulin) 3.4 2.0-4.0 [facility]2015-01-06 11:21:00 Test Item Value Reference Range Interpretation Comments B/C Ratio (test code = B/C Ratio) 14 6-25 [facility]2015-01-06 11:21:00 Test Item Value Reference Range Interpretation Comments AGAP (test code = AGAP) 19.4 10.0-20.0 [facility]2015-01-06 11:21:00 Test Item Value Reference Range Interpretation Comments Lipase Lvl (test code = Lipase Lvl) 81 73-393 [facility]anoWwhholeEOJNOYGWGT1839-54-13 11:21:00 Test Item Value Reference Range Interpretation Comments Large Plt (test code = Large Plt) [facility]light [facility]anoXmpginmFKTHVZBBHX5100-75-27 11:21:00 Test Item Value Reference Range Interpretation Comments Basophils # (test code 0.0 See_Comment [Aut omated message] The = Basophils #) system which generated this result tra nsmitted reference range : <=0.2. The reference r leo was not used to int erpret this result as normal/abnormal . [facility]anoQoohxsiEXCGRHCFDZ7969-44-61 11:21:00 Test Item Value Reference Range Interpretation Comments Anisocyte (test code = 1+ *ABN*(06/26/14 5:21 Anisocyte) AM) [facility]anoMzcnobjYBXCEJGKTR3196-48-04 11:21:00 Test Item Value Reference Range Interpretation Comments Monocytes # (test code 0.6 See_Comment [Aut omated message] The = Monocytes #) system which generated this result tra nsmitted reference range : <=0.8. The reference r leo was not used to int erpret this result as normal/abnormal . [facility] PlanoQtqgihxJQGNECRMTR9323-95-93 11:21:00 Test Item Value Reference Range Interpretation Comments Eosinophils # (test code 0.1 See_Comment [A utomated message] The = Eosinophils #) system whic h generated this result tra nsmitted reference range : <=0.5. The reference r leo was not used to int erpret this result as normal/abnormal . [facility]anoKrwwpadGVSNPBLMRY2949-80-16 11:21:00 Test Item Value Reference Range Interpretation Comments Lymphocytes # (test code = Lymphocytes 2.5 1.0-5.5 #) [facility]anoRiuyxsoFGRIHCZUWW1668-40-30 11:21:00 Test Item Value Reference Range Interpretation Comments Segs (test code = Segs) 63.3 45.0-75.0 [facility]anoQvqromkRFFTWDVDQI1124-08-73 11:21:00 Test Item Value Reference Range Interpretation Comments Segs-Bands # (test code = Segs-Bands #) 5.6 1.5-8.1 [facility]anoTtuqmbjRXOXOIXDZM8689-73-73 11:21:00 Test Item Value Reference Range Interpretation Comments Basophils (test code = 0.0 See_Comment [Aut omated message] The Basophils) system which ge nerated this result tra nsmitted reference range : <=1.0. The reference r leo was not used to int erpret this result as normal/abnormal . [facility]anoNqfcrgbIDQXQEGRLO6092-64-24 11:21:00 Test Item Value Reference Range Interpretation Comments Eosinophils (test code = 0.9 See_Comment [A utomated message] The Eosinophils) system which ge nerated this result tra nsmitted reference range : <=4.0. The reference r leo was not used to int erpret this result as normal/abnormal . [facility] PlanoIlluablSMUQJDSTQY2025-56-25 11:21:00 Test Item Value Reference Range Interpretation Comments Monocytes (test code = Monocytes) 7.0 2.0-12.0 [facility]anoOfmvupdGAADUTXLEE6090-79-04 11:21:00 Test Item Value Reference Range Interpretation Comments Lymphocytes (test code = Lymphocytes) 28.8 20.0-40.0 [facility]anoSvgyqacCYZYIBONGG0275-58-94 11:21:00 Test Item Value Reference Range Interpretation Comments WBC (test code = WBC) 8.8 3.7-10.4 [facility]anoJlpdglmPGDQBHPCOQ8512-05-41 11:21:00 Test Item Value Reference Range Interpretation Comments RBC (test code = RBC) 5.19 4.20-5.40 [facility]anoIbdzqlyHUWAHPKUTM0784-55-57 11:21:00 Test Item Value Reference Range Interpretation Comments Hgb (test code = Hgb) 14.4 12.0-16.0 [facility] PlanoYdayrtrEMCLPKGZIK1272-90-12 11:21:00 Test Item Value Reference Range Interpretation Comments Hct (test code = Hct) 43.1 36.0-48.0 [facility] PlanoJaelxwfLUNIKNPZWZ1462-64-50 11:21:00 Test Item Value Reference Range Interpretation Comments MCV (test code = MCV) 83.1 80.0-98.0 [facility]anoMjhimjiNLAWQUFTXI6044-95-48 11:21:00 Test Item Value Reference Range Interpretation Comments MCH (test code = MCH) 27.8 pg 27.0-31.0 [facility]anoNoklthnANBEDSXEEC4530-23-77 11:21:00 Test Item Value Reference Range Interpretation Comments RDW (test code = RDW) 13.1 11.5-14.5 [facility]anoMpyauudNYEADZMWLL6451-69-00 11:21:00 Test Item Value Reference Range Interpretation Comments MCHC (test code = MCHC) 33.5 32.0-36.0 [facility]anoShtslxmPPAFVCQIAM4953-81-92 11:21:00 Test Item Value Reference Range Interpretation Comments Platelet (test code = Platelet) 201 133-450 [facility]anoNscgirvMBRLPLTDBP1202-11-76 11:21:00 Test Item Value Reference Range Interpretation Comments MPV (test code = MPV) 10.4 7.4-10.4 [facility]JobwxslAZNUPUHTPY3234-30-83 04:48:55 Test Item Value Reference Range Interpretation Comments UA Mcclusky Yeast (test code = UA Occasional /HPF A Mcclusky Yeast) [facility] NorthwestBbwsuftXYWWFLEMRD2718-38-72 04:48:55 Test Item Value Reference Range Interpretation Comments UA Mucus (test code = UA Mucus) Few /LPF [facility]eruldxPCWOIPBWUG8389-44-76 04:48:55 Test Item Value Reference Range Interpretation Comments UA Sq Epi (test code = UA Sq Moderate /LPF A Epi) [facility] NorthwestPkyklllEIDHUOYFQR0887-27-70 04:48:55 Test Item Value Reference Range Interpretation Comments Micro? (test code = Performed (04/14/2013 N Micro?) 23:48:55) [facility] NorthwestRcufzooBPQZNYXIVZ8307-22-19 04:48:55 Test Item Value Reference Range Interpretation Comments UA WBC (test code = UA WBC) 0-2 /HPF N [facility] NorthwestUobyforGKXEGJZCQZ5872-68-53 04:48:55 Test Item Value Reference Range Interpretation Comments UA Bacteria (test code = UA Occasional /HPF N Bacteria) [facility] NorthwestGbylgzzEGLZHMMSAD3315-71-28 04:48:55 Test Item Value Reference Range Interpretation Comments UA Glucose (test code = UA Glucose) 500 mg/dL A [facility] NorthwestOmvypojEYCTGSVDSB5455-18-59 04:48:55 Test Item Value Reference Range Interpretation Comments UA Bili (test code = Negative *NA*(04/14/2013 UA Bili) 23:48:55) [facility] NorthwestWzwuikdTKJIDBZVUG9733-59-93 04:48:55 Test Item Value Reference Range Interpretation Comments UA Ketones (test code = Trace A UA Ketones) *ABN*(04/14/2013 23:48:55) [facility] NorthwestSahjeeuWKBXXYZMUG5649-91-89 04:48:55 Test Item Value Reference Range Interpretation Comments UA Blood (test code = Negative (04/14/2013 N UA Blood) 23:48:55) [facility] NorthwestMfenbipNRSXDAMHSS9915-16-15 04:48:55 Test Item Value Reference Range Interpretation Comments UA Urobilinogen (test code = UA 0.2 0.1-1.0 N Urobilinogen) [facility] NorthwestMasiqxiVLFIKZUAOW8889-53-89 04:48:55 Test Item Value Reference Range Interpretation Comments UA Nitrite (test code Negative (04/14/2013 N = UA Nitrite) 23:48:55) [facility] NorthwestMwtrrfnJBRAADCHXN2738-34-60 04:48:55 Test Item Value Reference Range Interpretation Comments UA Leuk Est (test Negative (04/14/2013 N code = UA Leuk Est) 23:48:55) [facility] NorthwestVnaabqwBGBQIUQHBO1164-57-44 04:48:55 Test Item Value Reference Range Interpretation Comments UA Turbidity (test code = Clear (04/14/2013 N UA Turbidity) 23:48:55) [facility] NorthwestHxphdtvLSYTJDOAFU6205-42-41 04:48:55 Test Item Value Reference Range Interpretation Comments UA Color (test code = Yellow *NA*(04/14/2013 UA Color) 23:48:55) [facility] NorthwestExcyixpAERDFCEDEC6016-88-84 04:48:55 Test Item Value Reference Range Interpretation Comments UA pH (test code = UA pH) 7.0 1 5.0-8.0 N [facility] NorthwestLepllcpCXVUIENWEM9837-59-28 04:48:55 Test Item Value Reference Range Interpretation Comments UA Spec Grav (test code = UA Spec 1.025 1 N Grav) [facility] NorthwestNxienomRTTRGPGDGJ4387-50-40 04:48:55 Test Item Value Reference Range Interpretation Comments UA Protein (test code = Trace A UA Protein) *ABN*(04/14/2013 23:48:55) [facility] NorthwestWaytpnbSJPURWHCLB6670-19-63 04:48:55 Test Item Value Reference Range Interpretation Comments UA Mcclusky Yeast (test code = UA Occasional /HPF A Mcclusky Yeast) [facility] NorthwestTfuzrzaMDOAXXOOQW2952-53-15 04:48:55 Test Item Value Reference Range Interpretation Comments UA Mucus (test code = UA Mucus) Few /LPF N [facility] NorthwestOowvefoCERGNUGKSL7246-88-39 04:48:55 Test Item Value Reference Range Interpretation Comments UA Sq Epi (test code = UA Sq Moderate /LPF A Epi) [facility] NorthwestEtyadbnUETRITWZDE7101-40-61 04:48:55 Test Item Value Reference Range Interpretation Comments Micro? (test code = Performed (04/14/2013 N Micro?) 23:48:55) [facility] NorthwestUjprzctVQUFAUDRUO4377-46-73 04:48:55 Test Item Value Reference Range Interpretation Comments UA WBC (test code = UA WBC) 0-2 /HPF N [facility] NorthwestRfpffmoQVRKHUALOK2425-30-33 04:48:55 Test Item Value Reference Range Interpretation Comments UA Bacteria (test code = UA Occasional /HPF N Bacteria) [facility] NorthwestWrsnhgoUYMZDQJGRC8428-21-16 04:48:55 Test Item Value Reference Range Interpretation Comments UA Glucose (test code = UA Glucose) 500 mg/dL A [facility] NorthwestHzbgskpMNTSZHNCCJ4443-04-38 04:48:55 Test Item Value Reference Range Interpretation Comments UA Bili (test code = Negative *NA*(04/14/2013 UA Bili) 23:48:55) [facility] NorthwestHzbsfbwEWNHTJPPPJ9081-23-58 04:48:55 Test Item Value Reference Range Interpretation Comments UA Ketones (test code = Trace A UA Ketones) *ABN*(04/14/2013 23:48:55) [facility] NorthwestQndnhspZFUNQYPAWQ2915-41-71 04:48:55 Test Item Value Reference Range Interpretation Comments UA Blood (test code = Negative (04/14/2013 N UA Blood) 23:48:55) [facility] NorthwestXdmwzbkSZDALMZXMU8373-13-85 04:48:55 Test Item Value Reference Range Interpretation Comments UA Urobilinogen (test code = UA 0.2 0.1-1.0 N Urobilinogen) [facility] NorthwestXaedlceFJPDYUFTWZ3058-42-03 04:48:55 Test Item Value Reference Range Interpretation Comments UA Nitrite (test code Negative (04/14/2013 N = UA Nitrite) 23:48:55) [facility] NorthwestDbzqkmaDNASSSNBGC4721-13-85 04:48:55 Test Item Value Reference Range Interpretation Comments UA Leuk Est (test Negative (04/14/2013 N code = UA Leuk Est) 23:48:55) [facility] NorthwestTgtbkndQPJHNQSXSC3164-31-17 04:48:55 Test Item Value Reference Range Interpretation Comments UA Turbidity (test code = Clear (04/14/2013 N UA Turbidity) 23:48:55) [facility] NorthwestUdnyuvaCNMXHGLSNO0331-17-62 04:48:55 Test Item Value Reference Range Interpretation Comments UA Color (test code = Yellow *NA*(04/14/2013 UA Color) 23:48:55) [facility] NorthwestJbbwfegNXWQLIEETC6558-91-01 04:48:55 Test Item Value Reference Range Interpretation Comments UA pH (test code = UA pH) 7.0 1 5.0-8.0 N [facility] NorthwestAwtrbedUDIWIMHEPU2076-26-79 04:48:55 Test Item Value Reference Range Interpretation Comments UA Spec Grav (test code = UA Spec 1.025 1 N Grav) [facility] NorthwestRcghtezEFTYIWOFYV5621-80-22 04:48:55 Test Item Value Reference Range Interpretation Comments UA Protein (test code = Trace A UA Protein) *ABN*(04/14/2013 23:48:55) [facility] NorthwestJswwasvTWSOUFYCXF3969-74-11 04:48:55 Test Item Value Reference Range Interpretation Comments UA Mcclusky Yeast (test code = UA Occasional /HPF A Mcclusky Yeast) [facility] NorthwestHlumgmeXWBPDGELGE3579-95-13 04:48:55 Test Item Value Reference Range Interpretation Comments UA Mucus (test code = UA Mucus) Few /LPF N [facility] NorthwestCnxikqxIMHKUQXXLF9014-50-67 04:48:55 Test Item Value Reference Range Interpretation Comments UA Sq Epi (test code = UA Sq Moderate /LPF A Epi) [facility] NorthwestRchpftxKZXFMMNTXU1037-01-26 04:48:55 Test Item Value Reference Range Interpretation Comments Micro? (test code = Performed (04/14/2013 N Micro?) 23:48:55) [facility] NorthwestJdcqdjnKYUGZCOUQF1753-75-78 04:48:55 Test Item Value Reference Range Interpretation Comments UA WBC (test code = UA WBC) 0-2 /HPF N [facility] NorthwestKezosfqNJXOFNQXTO2603-21-81 04:48:55 Test Item Value Reference Range Interpretation Comments UA Bacteria (test code = UA Occasional /HPF N Bacteria) [facility] NorthwestCexkmowGBOMJAQDHN8770-78-69 04:48:55 Test Item Value Reference Range Interpretation Comments UA Glucose (test code = UA Glucose) 500 mg/dL A [facility] NorthwestFozsuaeFVAZZHRBCD7235-19-89 04:48:55 Test Item Value Reference Range Interpretation Comments UA Bili (test code = Negative *NA*(04/14/2013 UA Bili) 23:48:55) [facility] NorthwestEleenpeXGRDYQARBD4625-13-05 04:48:55 Test Item Value Reference Range Interpretation Comments UA Ketones (test code = Trace A UA Ketones) *ABN*(04/14/2013 23:48:55) [facility] NorthwestOdwupfkSEDIVQJIZL8362-10-54 04:48:55 Test Item Value Reference Range Interpretation Comments UA Blood (test code = Negative (04/14/2013 N UA Blood) 23:48:55) [facility] NorthwestGwlnjcuTXETBGTXYM3813-40-45 04:48:55 Test Item Value Reference Range Interpretation Comments UA Urobilinogen (test code = UA 0.2 0.1-1.0 N Urobilinogen) [facility] NorthwestZoewwbxGYLJFSMTPO4933-60-61 04:48:55 Test Item Value Reference Range Interpretation Comments UA Nitrite (test code Negative (04/14/2013 N = UA Nitrite) 23:48:55) [facility] NorthwestBtjeooxFMUVWLBODP9336-05-93 04:48:55 Test Item Value Reference Range Interpretation Comments UA Leuk Est (test Negative (04/14/2013 N code = UA Leuk Est) 23:48:55) [facility] NorthwestEbzokssCKIKZEAEQN5329-56-98 04:48:55 Test Item Value Reference Range Interpretation Comments UA Turbidity (test code = Clear (04/14/2013 N UA Turbidity) 23:48:55) [facility] NorthwestWdqgmauZNNQLDJGAA2311-88-21 04:48:55 Test Item Value Reference Range Interpretation Comments UA Color (test code = Yellow *NA*(04/14/2013 UA Color) 23:48:55) [facility] NorthwestPeyxhkxKONKYIJGRM9555-18-89 04:48:55 Test Item Value Reference Range Interpretation Comments UA pH (test code = UA pH) 7.0 1 5.0-8.0 N [facility] NorthwestDpnffkfMFIFXOMEQE6322-91-16 04:48:55 Test Item Value Reference Range Interpretation Comments UA Spec Grav (test code = UA Spec 1.025 1 N Grav) [facility] NorthwestIyolyehHIFTSYTCAP1157-66-46 04:48:55 Test Item Value Reference Range Interpretation Comments UA Protein (test code = Trace A UA Protein) *ABN*(04/14/2013 23:48:55) [facility] NorthwestDdijopxLPRFKGPHOV9454-83-50 04:48:55 Test Item Value Reference Range Interpretation Comments UA Mcclusky Yeast (test code = UA Occasional /HPF A Mcclusky Yeast) [facility] NorthwestAasuuyeFCZSNJWLLT7386-08-37 04:48:55 Test Item Value Reference Range Interpretation Comments UA Mucus (test code = UA Mucus) Few /LPF N [facility] NorthwestBnsqhagUAGXBVYVZU6815-20-33 04:48:55 Test Item Value Reference Range Interpretation Comments UA Sq Epi (test code = UA Sq Moderate /LPF A Epi) [facility] NorthwestOwmqhuqRUPEKDEGRY3902-07-27 04:48:55 Test Item Value Reference Range Interpretation Comments Micro? (test code = Performed (04/14/2013 N Micro?) 23:48:55) [facility] NorthwestOhkhejqBZKPHTYIFW1616-98-09 04:48:55 Test Item Value Reference Range Interpretation Comments UA WBC (test code = UA WBC) 0-2 /HPF N [facility] NorthwestQefkoczJRDBJTFXFI6626-14-41 04:48:55 Test Item Value Reference Range Interpretation Comments UA Bacteria (test code = UA Occasional /HPF N Bacteria) [facility] NorthwestYhllypaBPQFMNWYEA6888-97-14 04:48:55 Test Item Value Reference Range Interpretation Comments UA Glucose (test code = UA Glucose) 500 mg/dL A [facility] NorthwestLalkmzgKGEJSCINTD6637-02-07 04:48:55 Test Item Value Reference Range Interpretation Comments UA Bili (test code = Negative *NA*(04/14/2013 UA Bili) 23:48:55) [facility] NorthwestEahurjaPOIUSDFWKI0896-15-27 04:48:55 Test Item Value Reference Range Interpretation Comments UA Ketones (test code = Trace A UA Ketones) *ABN*(04/14/2013 23:48:55) [facility] NorthwestRxyocviFIXMWFJMDR4849-73-95 04:48:55 Test Item Value Reference Range Interpretation Comments UA Blood (test code = Negative (04/14/2013 N UA Blood) 23:48:55) [facility] NorthwestBxlllifSIDZDSXRZU4005-66-60 04:48:55 Test Item Value Reference Range Interpretation Comments UA Urobilinogen (test code = UA 0.2 0.1-1.0 N Urobilinogen) [facility] NorthwestDcxaswzQWMMGDWCBX9650-38-36 04:48:55 Test Item Value Reference Range Interpretation Comments UA Nitrite (test code Negative (04/14/2013 N = UA Nitrite) 23:48:55) [facility] NorthwestZkjijnyIOKKTLILBC5471-47-25 04:48:55 Test Item Value Reference Range Interpretation Comments UA Leuk Est (test Negative (04/14/2013 N code = UA Leuk Est) 23:48:55) [facility] NorthwestCulhrlfSZASXQIWWX9575-19-40 04:48:55 Test Item Value Reference Range Interpretation Comments UA Turbidity (test code = Clear (04/14/2013 N UA Turbidity) 23:48:55) [facility] NorthwestXtnwuxmGTSFIFYMCA1101-57-88 04:48:55 Test Item Value Reference Range Interpretation Comments UA Color (test code = Yellow *NA*(04/14/2013 UA Color) 23:48:55) [facility] NorthwestQqppwrjFPSJECNHCM1854-59-25 04:48:55 Test Item Value Reference Range Interpretation Comments UA pH (test code = UA pH) 7.0 1 5.0-8.0 N [facility] NorthwestFzvdnrwAVOCHNJVIS0788-43-82 04:48:55 Test Item Value Reference Range Interpretation Comments UA Spec Grav (test code = UA Spec 1.025 1 N Grav) [facility] NorthwestChkdfgwYQMQIAIREV2339-10-59 04:48:55 Test Item Value Reference Range Interpretation Comments UA Protein (test code = Trace A UA Protein) *ABN*(04/14/2013 23:48:55) [facility] NorthwestNwvrprjYPYYNMDKDI2206-22-41 04:48:55 Test Item Value Reference Range Interpretation Comments UA Mcclusky Yeast (test code = UA Occasional /HPF A Mcclusky Yeast) [facility] NorthwestBmrlhhiGLUSLTNHZK6183-61-63 04:48:55 Test Item Value Reference Range Interpretation Comments UA Mucus (test code = UA Mucus) Few /LPF N [facility] NorthwestTxcpaibNRZEDIVISP0684-51-31 04:48:55 Test Item Value Reference Range Interpretation Comments UA Sq Epi (test code = UA Sq Moderate /LPF A Epi) [facility] NorthwestRpjtkdfJFDPLOCIBP7191-33-29 04:48:55 Test Item Value Reference Range Interpretation Comments Micro? (test code = Performed (04/14/2013 N Micro?) 23:48:55) [facility] NorthwestToygvyzEQWJYYQLCS4915-62-43 04:48:55 Test Item Value Reference Range Interpretation Comments UA WBC (test code = UA WBC) 0-2 /HPF N [facility] NorthwestNmsglmuKSNJACWRZG0079-05-69 04:48:55 Test Item Value Reference Range Interpretation Comments UA Bacteria (test code = UA Occasional /HPF N Bacteria) [facility] NorthwestPpjsvfsBKEYBCVWYZ8233-73-88 04:48:55 Test Item Value Reference Range Interpretation Comments UA Glucose (test code = UA Glucose) 500 mg/dL A [facility] NorthwestWfozubwJOWMSVBXHY7533-92-19 04:48:55 Test Item Value Reference Range Interpretation Comments UA Bili (test code = Negative *NA*(04/14/2013 UA Bili) 23:48:55) [facility] NorthwestLmxfenyODMLXWDXRS4028-39-49 04:48:55 Test Item Value Reference Range Interpretation Comments UA Ketones (test code = Trace A UA Ketones) *ABN*(04/14/2013 23:48:55) [facility] NorthwestYtylkgqRPXDCSJDAN4543-20-04 04:48:55 Test Item Value Reference Range Interpretation Comments UA Blood (test code = Negative (04/14/2013 N UA Blood) 23:48:55) [facility] NorthwestCientxmSQDHOGQSWC0181-72-98 04:48:55 Test Item Value Reference Range Interpretation Comments UA Urobilinogen (test code = UA 0.2 0.1-1.0 N Urobilinogen) [facility] NorthwestRrnsqatIOQPBFTJXI6147-88-46 04:48:55 Test Item Value Reference Range Interpretation Comments UA Nitrite (test code Negative (04/14/2013 N = UA Nitrite) 23:48:55) [facility] NorthwestKwqcuxnHIKEMGITCQ8418-83-18 04:48:55 Test Item Value Reference Range Interpretation Comments UA Leuk Est (test Negative (04/14/2013 N code = UA Leuk Est) 23:48:55) [facility] NorthwestAvfdywxUEBSBOCIOE9344-31-28 04:48:55 Test Item Value Reference Range Interpretation Comments UA Turbidity (test code = Clear (04/14/2013 N UA Turbidity) 23:48:55) [facility] NorthwestXwtxbhyJIGJXATADP5650-81-94 04:48:55 Test Item Value Reference Range Interpretation Comments UA Color (test code = Yellow *NA*(04/14/2013 UA Color) 23:48:55) [facility] NorthwestQvadjffEYVAEVAGVP4263-03-58 04:48:55 Test Item Value Reference Range Interpretation Comments UA pH (test code = UA pH) 7.0 1 5.0-8.0 N [facility] NorthwestHcgurxxLGRWLLUJTQ8392-40-98 04:48:55 Test Item Value Reference Range Interpretation Comments UA Spec Grav (test code = UA Spec 1.025 1 N Grav) [facility] NorthwestScjboptEUEDGSJFXK3285-72-83 04:48:55 Test Item Value Reference Range Interpretation Comments UA Protein (test code = Trace A UA Protein) *ABN*(04/14/2013 23:48:55) [facility] CenterTppqqemEJDGMZZFD2951-54-37 04:28:00 Test Item Value Reference Range Interpretation Comments S Preg (test code = S Negative *NA*(04/14/2013 Preg) 23:28:00) [facility] CenterDmluitlEWGSPPJQU0132-29-22 04:28:00 Test Item Value Reference Range Interpretation Comments Lipase Lvl (test code = Lipase Lvl) 233 73-393 N [facility] CenterSbcnpquUHBYSPOEX1080-17-59 04:28:00 Test Item Value Reference Range Interpretation Comments Globulin (test code = Globulin) 4.1 2.0-4.0 H [facility] CenterLfsneztHRGIUHGMM2070-47-79 04:28:00 Test Item Value Reference Range Interpretation Comments AGAP (test code = AGAP) 10.5 10.0-20.0 N [facility] CenterIxjxuarJFMTIHYHR5998-52-76 04:28:00 Test Item Value Reference Range Interpretation Comments B/C Ratio (test code = B/C Ratio) 6 6-25 N [facility] CenterRiphpkaBWWXWORDM2243-76-73 04:28:00 Test Item Value Reference Range Interpretation Comments A/G Ratio (test code = A/G Ratio) 0.7 0.7-1.6 N [facility] CenterXneggxjBZSLWNIOY9831-01-73 04:28:00 Test Item Value Reference Range Interpretation Comments eGFR (test code = eGFR) 130 [facility] CenterJiakmfaBYBMYNKCV3153-54-95 04:28:00 Test Item Value Reference Range Interpretation Comments Albumin Lvl (test code = Albumin Lvl) 2.9 3.5-5.0 L [facility] CenterZvlfitmLQABIKXKB7142-93-35 04:28:00 Test Item Value Reference Range Interpretation Comments ASPARTATE TRANSAMINASE 20 See_Comment N [Aut omated message] (test code = ASPARTATE The s ystem which TRANSAMINASE) generated this result transmitted ref erence range: <=37. Th e reference range was not used to interpr et this result as normal/abnormal . [facility] CenterEoskjmxKEUQAEQRP3416-76-05 04:28:00 Test Item Value Reference Range Interpretation Comments Bili Total (test code = Bili Total) 0.5 0.2-1.3 N [facility] CenterQoiephcMWJCOGNUD9377-19-68 04:28:00 Test Item Value Reference Range Interpretation Comments Alk Phos (test code = Alk Phos) 89 39-136 N [facility] CenterQbqywnnUDARTHAVJ9831-45-93 04:28:00 Test Item Value Reference Range Interpretation Comments ALANINE AMINOTRANSFERASE 11 See_Comment N [A utomated message] (test code = ALANINE The sys tem which AMINOTRANSFERASE) generated this result transmitted ref erence range: <=65. Th e reference range was not used to int erpret this result as normal/abnormal . [facility] CenterHfpmpifFUZBIXHDL2647-63-73 04:28:00 Test Item Value Reference Range Interpretation Comments Creatinine Lvl (test code = Creatinine 0.5 0.5-1.4 N Lvl) [facility] CenterBootgtiPWDPATQAR0108-35-18 04:28:00 Test Item Value Reference Range Interpretation Comments BUN (test code = BUN) 3 7-22 L [facility] CenterNljsuqrYELBFFVGV5326-20-29 04:28:00 Test Item Value Reference Range Interpretation Comments Glucose Lvl (test code = Glucose Lvl) 255 70-99 H [facility] CenterKbxdkohRMNSQKCXJ9569-69-61 04:28:00 Test Item Value Reference Range Interpretation Comments Total Protein (test code = Total 7.0 6.4-8.4 N Protein) [facility] CenterWyeayjqTSRDBLCEY6293-56-21 04:28:00 Test Item Value Reference Range Interpretation Comments Calcium Lvl (test code = Calcium Lvl) 8.7 8.5-10.5 N [facility] CenterBaayvxjCDEHVTWEX1650-90-83 04:28:00 Test Item Value Reference Range Interpretation Comments CO2 (test code = CO2) 29 24-32 N [facility] CenterLzafsovVWZLWVIUY3856-81-91 04:28:00 Test Item Value Reference Range Interpretation Comments Chloride Lvl (test code = Chloride Lvl) 104 95-109 N [facility] CenterJvewxkjRFZCODHKG1751-91-18 04:28:00 Test Item Value Reference Range Interpretation Comments Potassium Lvl (test code = Potassium 3.5 3.5-5.1 N Lvl) [facility] CenterVzchrsdCCSGYXTIG3988-47-39 04:28:00 Test Item Value Reference Range Interpretation Comments Sodium Lvl (test code = Sodium Lvl) 140 135-145 N [facility]QkkbaxzOVEPVVUQDV7878-38-34 04:28:00 Test Item Value Reference Range Interpretation Comments PROTIME (test code = PROTIME) 12.1 s 12.0-14.7 N [facility]anoUwotwisISDOWSVNEB7838-27-55 04:28:00 Test Item Value Reference Range Interpretation Comments aPTT (test code = aPTT) 39.0 s 22.9-35.8 H [facility]anoIvtbepuDYILHHRKQM3094-43-61 04:28:00 Test Item Value Reference Range Interpretation Comments INR (test code = INR) 0.90 0.85-1.17 N [facility]anoKubzvnqVHKEVVJALA7409-15-63 04:28:00 Test Item Value Reference Range Interpretation Comments MCH (test code = MCH) 29.4 pg 27.0-31.0 N [facility]OhvnvccEALUVQCENH7364-39-82 04:28:00 Test Item Value Reference Range Interpretation Comments MCV (test code = MCV) 86.1 81.0-99.0 N [facility]anoBfiqfcyECVYOETZHO6891-79-16 04:28:00 Test Item Value Reference Range Interpretation Comments Hct (test code = Hct) 29.4 36.0-48.0 L [facility]anoJggujtyCNKDTGPHIU7549-79-76 04:28:00 Test Item Value Reference Range Interpretation Comments RDW (test code = RDW) 14.0 11.5-14.5 N [facility]anoUmgtuwcRZIAAJOULY5167-69-84 04:28:00 Test Item Value Reference Range Interpretation Comments WBC X 10x3 (test code = WBC X 10x3) 6.2 3.7-10.4 N [facility]anoKenewjmLWTIHPQIZL3949-16-77 04:28:00 Test Item Value Reference Range Interpretation Comments Platelet (test code = Platelet) 178 133-450 N [facility]anoAtfdhjvNXRPFCKQEH8090-53-75 04:28:00 Test Item Value Reference Range Interpretation Comments MCHC (test code = MCHC) 34.1 32.0-36.0 N [facility]anoNuhwsbaCGQWLWFVZC0759-85-32 04:28:00 Test Item Value Reference Range Interpretation Comments RBC X 10x6 (test code = RBC X 10x6) 3.41 4.20-5.40 L [facility]anoAenatllGLPJOCQFDL0036-77-30 04:28:00 Test Item Value Reference Range Interpretation Comments Hgb (test code = Hgb) 10.0 12.0-16.0 L [facility]anoVgoxtpnNORTHYOITE3317-17-26 04:28:00 Test Item Value Reference Range Interpretation Comments MPV (test code = MPV) 10.1 7.4-10.4 N [facility]anoSdmiydjCPBXFMCZQZ5728-50-18 04:28:00 Test Item Value Reference Range Interpretation Comments Segs-Bands # (test code = Segs-Bands #) 4.4 1.5-8.1 N [facility]anoXhxgpulLKBHNGEFPR7137-32-11 04:28:00 Test Item Value Reference Range Interpretation Comments Basophils (test code = 0.7 See_Comment N [Aut omated message] The Basophils) system which ge nerated this result tra nsmitted reference range : <=1.0. The reference r leo was not used to int erpret this result as normal/abnormal . [facility]anoVfdmiwhWJIDQHKJJF9084-13-69 04:28:00 Test Item Value Reference Range Interpretation Comments Segs (test code = Segs) 70.7 45.0-75.0 N [facility]anoKkhagryWBYYNAAVJO1597-69-85 04:28:00 Test Item Value Reference Range Interpretation Comments Monocytes # (test code 0.3 See_Comment N [Aut omated message] The = Monocytes #) system which generated this result tra nsmitted reference range : <=0.8. The reference r leo was not used to int erpret this result as normal/abnormal . [facility]anoUwugcfiHUCIZCYGYI8633-96-72 04:28:00 Test Item Value Reference Range Interpretation Comments Lymphocytes # (test code = Lymphocytes 1.2 1.0-5.5 N #) [facility]anoRfmzknmIRUUEVTFME1696-79-34 04:28:00 Test Item Value Reference Range Interpretation Comments Monocytes (test code = Monocytes) 4.5 2.0-12.0 N [facility]anoTzlsnadARWVTPKCBM7232-90-60 04:28:00 Test Item Value Reference Range Interpretation Comments Eosinophils (test code = 4.1 See_Comment H [A utomated message] The Eosinophils) system which ge nerated this result tra nsmitted reference range : <=4.0. The reference r leo was not used to int erpret this result as normal/abnormal . [facility]anoUntrxwjRDJUOWSPTX8093-45-70 04:28:00 Test Item Value Reference Range Interpretation Comments Lymphocytes (test code = Lymphocytes) 20.0 20.0-40.0 N [facility]anoKytfibhYNUELIBXSL1780-80-92 04:28:00 Test Item Value Reference Range Interpretation Comments Basophils # (test code 0.0 See_Comment N [Aut omated message] The = Basophils #) system which generated this result tra nsmitted reference range : <=0.2. The reference r leo was not used to int erpret this result as normal/abnormal . [facility]TcyaikwEKTQDIQNHD1032-27-80 04:28:00 Test Item Value Reference Range Interpretation Comments Eosinophils # (test code 0.3 See_Comment N [A utomated message] The = Eosinophils #) system whic h generated this result tra nsmitted reference range : <=0.5. The reference r leo was not used to int erpret this result as normal/abnormal . [facility] CenterTozbvqkVCIBOLVLI5203-32-16 04:28:00 Test Item Value Reference Range Interpretation Comments S Preg (test code = S Negative *NA*(04/14/2013 Preg) 23:28:00) [facility] CenterJghcldpQGBELAQXY1838-34-55 04:28:00 Test Item Value Reference Range Interpretation Comments Lipase Lvl (test code = Lipase Lvl) 233 73-393 N [facility] CenterAqhnijnIVTVCOPCT4485-40-34 04:28:00 Test Item Value Reference Range Interpretation Comments Globulin (test code = Globulin) 4.1 2.0-4.0 H [facility] CenterCigqadoVGJTYCUGV6406-29-85 04:28:00 Test Item Value Reference Range Interpretation Comments AGAP (test code = AGAP) 10.5 10.0-20.0 N [facility] CenterDmermkbWHXPFRDDY0597-31-57 04:28:00 Test Item Value Reference Range Interpretation Comments B/C Ratio (test code = B/C Ratio) 6 6-25 N [facility] CenterYrumcqcWTCOZLGFW4329-27-25 04:28:00 Test Item Value Reference Range Interpretation Comments A/G Ratio (test code = A/G Ratio) 0.7 0.7-1.6 N [facility] CenterCfjzbsrWLZKHOMHL2094-09-74 04:28:00 Test Item Value Reference Range Interpretation Comments eGFR (test code = eGFR) 130 [facility] CenterSripuezKYHSDPUNG8347-63-25 04:28:00 Test Item Value Reference Range Interpretation Comments Albumin Lvl (test code = Albumin Lvl) 2.9 3.5-5.0 L [facility] CenterXudwbtbVZSRWXQLP8568-00-57 04:28:00 Test Item Value Reference Range Interpretation Comments ASPARTATE TRANSAMINASE 20 See_Comment N [Aut omated message] (test code = ASPARTATE The s ystem which TRANSAMINASE) generated this result transmitted ref erence range: <=37. Th e reference range was not used to interpr et this result as normal/abnormal . [facility] CenterZaeiiqdAXSLAFBBF4304-26-67 04:28:00 Test Item Value Reference Range Interpretation Comments Bili Total (test code = Bili Total) 0.5 0.2-1.3 N [facility] CenterAnjioplOZYZFPDKM3901-85-76 04:28:00 Test Item Value Reference Range Interpretation Comments Alk Phos (test code = Alk Phos) 89 39-136 N [facility] CenterLeeugglZRPKGDKUP9317-96-07 04:28:00 Test Item Value Reference Range Interpretation Comments ALANINE AMINOTRANSFERASE 11 See_Comment N [A utomated message] (test code = ALANINE The sys tem which AMINOTRANSFERASE) generated this result transmitted ref erence range: <=65. Th e reference range was not used to int erpret this result as normal/abnormal . [facility] CenterAcaklziIVJKOQFDV6457-86-56 04:28:00 Test Item Value Reference Range Interpretation Comments Creatinine Lvl (test code = Creatinine 0.5 0.5-1.4 N Lvl) [facility] CenterIkbkutbHWWSSYWDD2891-53-45 04:28:00 Test Item Value Reference Range Interpretation Comments BUN (test code = BUN) 3 7-22 L [facility] CenterYnfybewOZSAXUHGZ8915-51-33 04:28:00 Test Item Value Reference Range Interpretation Comments Glucose Lvl (test code = Glucose Lvl) 255 70-99 H [facility] CenterQkodmsfIUQOXKAIA9871-41-23 04:28:00 Test Item Value Reference Range Interpretation Comments Total Protein (test code = Total 7.0 6.4-8.4 N Protein) [facility] CenterDrrtjdjHZMIVJUCY4626-98-57 04:28:00 Test Item Value Reference Range Interpretation Comments Calcium Lvl (test code = Calcium Lvl) 8.7 8.5-10.5 N [facility] CenterMmwundnRRFJTCRGK6960-39-05 04:28:00 Test Item Value Reference Range Interpretation Comments CO2 (test code = CO2) 29 24-32 N [facility] CenterYqvgflxUKANAZXNQ4296-69-71 04:28:00 Test Item Value Reference Range Interpretation Comments Chloride Lvl (test code = Chloride Lvl) 104 95-109 N [facility] CenterGevygnxJTHMSABGF3101-26-99 04:28:00 Test Item Value Reference Range Interpretation Comments Potassium Lvl (test code = Potassium 3.5 3.5-5.1 N Lvl) [facility] CenterKsbscvlXXCUEXLQU3538-05-59 04:28:00 Test Item Value Reference Range Interpretation Comments Sodium Lvl (test code = Sodium Lvl) 140 135-145 N [facility]anoIrzyrukNUTQXUECHK5308-98-55 04:28:00 Test Item Value Reference Range Interpretation Comments PROTIME (test code = PROTIME) 12.1 s 12.0-14.7 N [facility]anoPgttbeyXLWYNGXPTH8685-24-02 04:28:00 Test Item Value Reference Range Interpretation Comments aPTT (test code = aPTT) 39.0 s 22.9-35.8 H [facility]anoXtgsssmGFGZDSQWNZ2091-90-52 04:28:00 Test Item Value Reference Range Interpretation Comments INR (test code = INR) 0.90 0.85-1.17 N [facility]anoWxbjsmvKPPLKQHGQQ9551-90-53 04:28:00 Test Item Value Reference Range Interpretation Comments MCH (test code = MCH) 29.4 pg 27.0-31.0 N [facility]anoZaqdlbrMRLSFRDADJ6640-84-45 04:28:00 Test Item Value Reference Range Interpretation Comments MCV (test code = MCV) 86.1 81.0-99.0 N [facility]anoWmlohyjBNMEWHPJKR6752-61-93 04:28:00 Test Item Value Reference Range Interpretation Comments Hct (test code = Hct) 29.4 36.0-48.0 L [facility]anoOydxvxvFNCMWWPSWY4806-65-15 04:28:00 Test Item Value Reference Range Interpretation Comments RDW (test code = RDW) 14.0 11.5-14.5 N [facility]anoFrxadbyCFKQVHALKE6530-83-33 04:28:00 Test Item Value Reference Range Interpretation Comments WBC X 10x3 (test code = WBC X 10x3) 6.2 3.7-10.4 N [facility]anoWkygagzOJMEVUGEQE2939-44-45 04:28:00 Test Item Value Reference Range Interpretation Comments Platelet (test code = Platelet) 178 133-450 N [facility]anoUjvcauvQXFFPUIXWP7425-80-62 04:28:00 Test Item Value Reference Range Interpretation Comments MCHC (test code = MCHC) 34.1 32.0-36.0 N [facility]anoBpmpdwpMWQUIEXIWQ6968-88-99 04:28:00 Test Item Value Reference Range Interpretation Comments RBC X 10x6 (test code = RBC X 10x6) 3.41 4.20-5.40 L [facility]anoYmcxjknLUWJHXSLIR7981-27-90 04:28:00 Test Item Value Reference Range Interpretation Comments Hgb (test code = Hgb) 10.0 12.0-16.0 L [facility]anoDtwmqtpJKOWNTXGPF7630-75-79 04:28:00 Test Item Value Reference Range Interpretation Comments MPV (test code = MPV) 10.1 7.4-10.4 N [facility]anoVaeqvjxRWYVASKMIG9489-40-06 04:28:00 Test Item Value Reference Range Interpretation Comments Segs-Bands # (test code = Segs-Bands #) 4.4 1.5-8.1 N [facility]anoEodawfwAMBGTFERQH2010-63-63 04:28:00 Test Item Value Reference Range Interpretation Comments Basophils (test code = 0.7 See_Comment N [Aut omated message] The Basophils) system which ge nerated this result tra nsmitted reference range : <=1.0. The reference r leo was not used to int erpret this result as normal/abnormal . [facility]anoQnvqlonQSFAHOJUQI7353-65-28 04:28:00 Test Item Value Reference Range Interpretation Comments Segs (test code = Segs) 70.7 45.0-75.0 N [facility]anoQxfbppaXLHAXZRSLL2454-05-45 04:28:00 Test Item Value Reference Range Interpretation Comments Monocytes # (test code 0.3 See_Comment N [Aut omated message] The = Monocytes #) system which generated this result tra nsmitted reference range : <=0.8. The reference r leo was not used to int erpret this result as normal/abnormal . [facility]anoOithskbGPGEDFPGJC1216-45-51 04:28:00 Test Item Value Reference Range Interpretation Comments Lymphocytes # (test code = Lymphocytes 1.2 1.0-5.5 N #) [facility]anoPsertyoVSUPFUZKFB9319-07-50 04:28:00 Test Item Value Reference Range Interpretation Comments Monocytes (test code = Monocytes) 4.5 2.0-12.0 N [facility]anoQefohzqOVGVWNAQKP2789-27-74 04:28:00 Test Item Value Reference Range Interpretation Comments Eosinophils (test code = 4.1 See_Comment H [A utomated message] The Eosinophils) system which ge nerated this result tra nsmitted reference range : <=4.0. The reference r leo was not used to int erpret this result as normal/abnormal . [facility]anoDlebodxVNCAIBFVSO3364-60-83 04:28:00 Test Item Value Reference Range Interpretation Comments Lymphocytes (test code = Lymphocytes) 20.0 20.0-40.0 N [facility]anoAahcmjrTDWJRPXIWE0072-17-44 04:28:00 Test Item Value Reference Range Interpretation Comments Basophils # (test code 0.0 See_Comment N [Aut omated message] The = Basophils #) system which generated this result tra nsmitted reference range : <=0.2. The reference r leo was not used to int erpret this result as normal/abnormal . [facility]anoBvbdeurNBWYHVWIOI2538-89-73 04:28:00 Test Item Value Reference Range Interpretation Comments Eosinophils # (test code 0.3 See_Comment N [A utomated message] The = Eosinophils #) system whic h generated this result tra nsmitted reference range : <=0.5. The reference r leo was not used to int erpret this result as normal/abnormal . [facility] CenterDxuorupOIBVKQMQT0058-97-77 04:28:00 Test Item Value Reference Range Interpretation Comments S Preg (test code = S Negative *NA*(04/14/2013 Preg) 23:28:00) [facility] CenterWqgqbdvGMWYVVKZY3521-09-49 04:28:00 Test Item Value Reference Range Interpretation Comments Lipase Lvl (test code = Lipase Lvl) 233 73-393 N [facility] CenterDczwlqfGGDSIKNLD7293-41-36 04:28:00 Test Item Value Reference Range Interpretation Comments Globulin (test code = Globulin) 4.1 2.0-4.0 H [facility] CenterPbtkdoqKTZDHFUSC5527-93-18 04:28:00 Test Item Value Reference Range Interpretation Comments AGAP (test code = AGAP) 10.5 10.0-20.0 N [facility] CenterQksyjpyULMIHETFX2849-89-91 04:28:00 Test Item Value Reference Range Interpretation Comments B/C Ratio (test code = B/C Ratio) 6 6-25 N [facility] CenterTkupcxcALSUZPQJY6029-51-31 04:28:00 Test Item Value Reference Range Interpretation Comments A/G Ratio (test code = A/G Ratio) 0.7 0.7-1.6 N [facility] CenterWtejpyiEVWLTKJCM2658-44-14 04:28:00 Test Item Value Reference Range Interpretation Comments eGFR (test code = eGFR) 130 [facility] CenterTtwipxoGMXXUZOEV0581-90-17 04:28:00 Test Item Value Reference Range Interpretation Comments Albumin Lvl (test code = Albumin Lvl) 2.9 3.5-5.0 L [facility] CenterKesremlVYYNKSZJF1440-88-63 04:28:00 Test Item Value Reference Range Interpretation Comments ASPARTATE TRANSAMINASE 20 See_Comment N [Aut omated message] (test code = ASPARTATE The s ystem which TRANSAMINASE) generated this result transmitted ref erence range: <=37. Th e reference range was not used to interpr et this result as normal/abnormal . [facility] CenterWgyhjsrFIXTJLASN4656-19-91 04:28:00 Test Item Value Reference Range Interpretation Comments Bili Total (test code = Bili Total) 0.5 0.2-1.3 N [facility] CenterAzpgqijNZUWROBRO9968-95-43 04:28:00 Test Item Value Reference Range Interpretation Comments Alk Phos (test code = Alk Phos) 89 39-136 N [facility] CenterJyicmygGZWSPNPOF4806-38-50 04:28:00 Test Item Value Reference Range Interpretation Comments ALANINE AMINOTRANSFERASE 11 See_Comment N [A utomated message] (test code = ALANINE The sys tem which AMINOTRANSFERASE) generated this result transmitted ref erence range: <=65. Th e reference range was not used to int erpret this result as normal/abnormal . [facility] CenterMwqifuuJZWZLCOXN5210-15-92 04:28:00 Test Item Value Reference Range Interpretation Comments Creatinine Lvl (test code = Creatinine 0.5 0.5-1.4 N Lvl) [facility] CenterXwxciglTRVXDFBHD5311-00-33 04:28:00 Test Item Value Reference Range Interpretation Comments BUN (test code = BUN) 3 7-22 L [facility] CenterAvtzkgtMBMPOZYJZ9117-94-36 04:28:00 Test Item Value Reference Range Interpretation Comments Glucose Lvl (test code = Glucose Lvl) 255 70-99 H [facility] CenterUqhakldHPMMOUXJV0906-38-94 04:28:00 Test Item Value Reference Range Interpretation Comments Total Protein (test code = Total 7.0 6.4-8.4 N Protein) [facility] CenterDldlqjyIYCRAKZRX0505-02-11 04:28:00 Test Item Value Reference Range Interpretation Comments Calcium Lvl (test code = Calcium Lvl) 8.7 8.5-10.5 N [facility] CenterOuepbzxMALBJXJZK9956-07-39 04:28:00 Test Item Value Reference Range Interpretation Comments CO2 (test code = CO2) 29 24-32 N [facility] CenterBhakghtBZFOEEKJK3826-43-98 04:28:00 Test Item Value Reference Range Interpretation Comments Chloride Lvl (test code = Chloride Lvl) 104 95-109 N [facility] CenterQrsnipzNBMCHGQQY6199-98-43 04:28:00 Test Item Value Reference Range Interpretation Comments Potassium Lvl (test code = Potassium 3.5 3.5-5.1 N Lvl) [facility] CenterTacfxhlNRVXETSYD0935-12-31 04:28:00 Test Item Value Reference Range Interpretation Comments Sodium Lvl (test code = Sodium Lvl) 140 135-145 N [facility]anoFujzoqyAHGWWIOQJH8310-56-53 04:28:00 Test Item Value Reference Range Interpretation Comments PROTIME (test code = PROTIME) 12.1 s 12.0-14.7 N [facility]anoFevgejgBTEPEHBWWY0830-87-40 04:28:00 Test Item Value Reference Range Interpretation Comments aPTT (test code = aPTT) 39.0 s 22.9-35.8 H [facility]anoPkvoljyLCSOICJDTZ3530-44-95 04:28:00 Test Item Value Reference Range Interpretation Comments INR (test code = INR) 0.90 0.85-1.17 N [facility]anoYuiglypLJCAQWFENT7034-30-98 04:28:00 Test Item Value Reference Range Interpretation Comments MCH (test code = MCH) 29.4 pg 27.0-31.0 N [facility]anoKuftmkwDFMVLQVNNV7999-02-78 04:28:00 Test Item Value Reference Range Interpretation Comments MCV (test code = MCV) 86.1 81.0-99.0 N [facility]anoXymhsazOILNGBUDSV1786-67-85 04:28:00 Test Item Value Reference Range Interpretation Comments Hct (test code = Hct) 29.4 36.0-48.0 L [facility]anoZxqjnmwZUOMXHPNPW9081-94-59 04:28:00 Test Item Value Reference Range Interpretation Comments RDW (test code = RDW) 14.0 11.5-14.5 N [facility]anoFbpesnhEEEYLJNFKX6730-87-65 04:28:00 Test Item Value Reference Range Interpretation Comments WBC X 10x3 (test code = WBC X 10x3) 6.2 3.7-10.4 N [facility]anoHjzaeftZJLXNHDIFY3328-22-97 04:28:00 Test Item Value Reference Range Interpretation Comments Platelet (test code = Platelet) 178 133-450 N [facility]anoPvlvecpFPLLZWOFPQ6002-02-83 04:28:00 Test Item Value Reference Range Interpretation Comments MCHC (test code = MCHC) 34.1 32.0-36.0 N [facility]anoWcmufgcXWFMHLIVMI0152-60-12 04:28:00 Test Item Value Reference Range Interpretation Comments RBC X 10x6 (test code = RBC X 10x6) 3.41 4.20-5.40 L [facility]anoMdtdmueYQOJVWBXCU4512-15-11 04:28:00 Test Item Value Reference Range Interpretation Comments Hgb (test code = Hgb) 10.0 12.0-16.0 L [facility]anoUfhninvNWHDOAHODN7240-28-48 04:28:00 Test Item Value Reference Range Interpretation Comments MPV (test code = MPV) 10.1 7.4-10.4 N [facility]anoDzfwjmjLPRWSUVDFW4872-24-54 04:28:00 Test Item Value Reference Range Interpretation Comments Segs-Bands # (test code = Segs-Bands #) 4.4 1.5-8.1 N [facility]anoHgsjucpKKNCZDGYJI2920-12-65 04:28:00 Test Item Value Reference Range Interpretation Comments Basophils (test code = 0.7 See_Comment N [Aut omated message] The Basophils) system which ge nerated this result tra nsmitted reference range : <=1.0. The reference r leo was not used to int erpret this result as normal/abnormal . [facility]anoRmbfrhjDELAKTCPYX4396-15-38 04:28:00 Test Item Value Reference Range Interpretation Comments Segs (test code = Segs) 70.7 45.0-75.0 N [facility]anoOpejnwlRMQOWXKRZF9408-30-24 04:28:00 Test Item Value Reference Range Interpretation Comments Monocytes # (test code 0.3 See_Comment N [Aut omated message] The = Monocytes #) system which generated this result tra nsmitted reference range : <=0.8. The reference r leo was not used to int erpret this result as normal/abnormal . [facility]anoIymoeakPKOSBWIPEV2774-54-84 04:28:00 Test Item Value Reference Range Interpretation Comments Lymphocytes # (test code = Lymphocytes 1.2 1.0-5.5 N #) [facility]anoJftanfwUFCGQHMOOM4649-23-77 04:28:00 Test Item Value Reference Range Interpretation Comments Monocytes (test code = Monocytes) 4.5 2.0-12.0 N [facility]anoFvzzuzzLHHVTPTMEI1525-99-35 04:28:00 Test Item Value Reference Range Interpretation Comments Eosinophils (test code = 4.1 See_Comment H [A utomated message] The Eosinophils) system which ge nerated this result tra nsmitted reference range : <=4.0. The reference r leo was not used to int erpret this result as normal/abnormal . [facility]anoEtisqvdVSUAFFVWZI7581-41-78 04:28:00 Test Item Value Reference Range Interpretation Comments Lymphocytes (test code = Lymphocytes) 20.0 20.0-40.0 N [facility]anoFyebfwyTDSYOCSBOE2991-04-85 04:28:00 Test Item Value Reference Range Interpretation Comments Basophils # (test code 0.0 See_Comment N [Aut omated message] The = Basophils #) system which generated this result tra nsmitted reference range : <=0.2. The reference r leo was not used to int erpret this result as normal/abnormal . [facility]anoTevgmswPAZRUAVWPC6771-14-45 04:28:00 Test Item Value Reference Range Interpretation Comments Eosinophils # (test code 0.3 See_Comment N [A utomated message] The = Eosinophils #) system whic h generated this result tra nsmitted reference range : <=0.5. The reference r leo was not used to int erpret this result as normal/abnormal . [facility] CenterCrknpurUBTBROEKZ6695-54-98 04:28:00 Test Item Value Reference Range Interpretation Comments S Preg (test code = S Negative *NA*(04/14/2013 Preg) 23:28:00) [facility] CenterXputbzqKVVPNNJQV2317-37-38 04:28:00 Test Item Value Reference Range Interpretation Comments Lipase Lvl (test code = Lipase Lvl) 233 73-393 N [facility] CenterMtafigpJUTLMACXV2446-19-48 04:28:00 Test Item Value Reference Range Interpretation Comments Globulin (test code = Globulin) 4.1 2.0-4.0 H [facility] CenterNmylrmaUCNGAICHO6991-65-22 04:28:00 Test Item Value Reference Range Interpretation Comments AGAP (test code = AGAP) 10.5 10.0-20.0 N [facility] CenterQutxebeAVNWGPPZI9807-96-25 04:28:00 Test Item Value Reference Range Interpretation Comments B/C Ratio (test code = B/C Ratio) 6 6-25 N [facility] CenterWcsaeafNGDUZVBJA4850-30-51 04:28:00 Test Item Value Reference Range Interpretation Comments A/G Ratio (test code = A/G Ratio) 0.7 0.7-1.6 N [facility] CenterEmgbdnvHNVJZGTOD4900-41-25 04:28:00 Test Item Value Reference Range Interpretation Comments eGFR (test code = eGFR) 130 [facility] CenterRshxnpoBIASKUEBK0573-00-73 04:28:00 Test Item Value Reference Range Interpretation Comments Albumin Lvl (test code = Albumin Lvl) 2.9 3.5-5.0 L [facility] CenterDkwttoiLBFLQQJBK6009-63-20 04:28:00 Test Item Value Reference Range Interpretation Comments ASPARTATE TRANSAMINASE 20 See_Comment N [Aut omated message] (test code = ASPARTATE The s ystem which TRANSAMINASE) generated this result transmitted ref erence range: <=37. Th e reference range was not used to interpr et this result as normal/abnormal . [facility] CenterPetkbxgJCSTATEIA6434-71-46 04:28:00 Test Item Value Reference Range Interpretation Comments Bili Total (test code = Bili Total) 0.5 0.2-1.3 N [facility] CenterPjhrwkhLUNVGMRBY4947-15-62 04:28:00 Test Item Value Reference Range Interpretation Comments Alk Phos (test code = Alk Phos) 89 39-136 N [facility] CenterJpmmjtiIHAOJLJZO1810-25-61 04:28:00 Test Item Value Reference Range Interpretation Comments ALANINE AMINOTRANSFERASE 11 See_Comment N [A utomated message] (test code = ALANINE The sys tem which AMINOTRANSFERASE) generated this result transmitted ref erence range: <=65. Th e reference range was not used to int erpret this result as normal/abnormal . [facility] CenterDtmaqwdHTGPDQSIM6987-19-38 04:28:00 Test Item Value Reference Range Interpretation Comments Creatinine Lvl (test code = Creatinine 0.5 0.5-1.4 N Lvl) [facility] CenterInraawjRHVZKNEMD6786-33-80 04:28:00 Test Item Value Reference Range Interpretation Comments BUN (test code = BUN) 3 7-22 L [facility] CenterYaryeaiZMOPFPKMF2349-28-18 04:28:00 Test Item Value Reference Range Interpretation Comments Glucose Lvl (test code = Glucose Lvl) 255 70-99 H [facility] CenterEusahgrXIWUGFIKE5033-82-50 04:28:00 Test Item Value Reference Range Interpretation Comments Total Protein (test code = Total 7.0 6.4-8.4 N Protein) [facility] CenterHdxgfevZGNTQBAUS9918-04-51 04:28:00 Test Item Value Reference Range Interpretation Comments Calcium Lvl (test code = Calcium Lvl) 8.7 8.5-10.5 N [facility] CenterNoxloeaRLGWVFMFU9169-71-84 04:28:00 Test Item Value Reference Range Interpretation Comments CO2 (test code = CO2) 29 24-32 N [facility] CenterSguakqaSUJPONDWY7815-88-45 04:28:00 Test Item Value Reference Range Interpretation Comments Chloride Lvl (test code = Chloride Lvl) 104 95-109 N [facility] CenterFkjiaeiPCZSKOFVS3380-90-04 04:28:00 Test Item Value Reference Range Interpretation Comments Potassium Lvl (test code = Potassium 3.5 3.5-5.1 N Lvl) [facility] CenterVxjkwqnQNZAOGQYX4605-28-92 04:28:00 Test Item Value Reference Range Interpretation Comments Sodium Lvl (test code = Sodium Lvl) 140 135-145 N [facility]anoZpnqkpwTYCQCZCFYR9171-98-63 04:28:00 Test Item Value Reference Range Interpretation Comments PROTIME (test code = PROTIME) 12.1 s 12.0-14.7 N [facility]anoEoivseoVPMFHUBRBM6066-93-01 04:28:00 Test Item Value Reference Range Interpretation Comments aPTT (test code = aPTT) 39.0 s 22.9-35.8 H [facility]anoKoakaftJNDZHNEZOC8108-66-11 04:28:00 Test Item Value Reference Range Interpretation Comments INR (test code = INR) 0.90 0.85-1.17 N [facility]VbqsuxpVCHKWYQNEJ5956-95-91 04:28:00 Test Item Value Reference Range Interpretation Comments MCH (test code = MCH) 29.4 pg 27.0-31.0 N [facility]anoJsgdoeyRLCHFIWLQE1058-25-81 04:28:00 Test Item Value Reference Range Interpretation Comments MCV (test code = MCV) 86.1 81.0-99.0 N [facility]anoXgopqjoDOAHSDOANN8795-83-52 04:28:00 Test Item Value Reference Range Interpretation Comments Hct (test code = Hct) 29.4 36.0-48.0 L [facility]anoYtjedaeYXYJUEXNHO5163-80-73 04:28:00 Test Item Value Reference Range Interpretation Comments RDW (test code = RDW) 14.0 11.5-14.5 N [facility]anoQxckyprVOIDTTWXOH4107-98-84 04:28:00 Test Item Value Reference Range Interpretation Comments WBC X 10x3 (test code = WBC X 10x3) 6.2 3.7-10.4 N [facility]anoVosbizcSWEQRBLQEU2782-44-47 04:28:00 Test Item Value Reference Range Interpretation Comments Platelet (test code = Platelet) 178 133-450 N [facility]anoEzecgheUDMQTTWETB7163-32-59 04:28:00 Test Item Value Reference Range Interpretation Comments MCHC (test code = MCHC) 34.1 32.0-36.0 N [facility]anoWzboyepKSYWXWXUPC0752-22-87 04:28:00 Test Item Value Reference Range Interpretation Comments RBC X 10x6 (test code = RBC X 10x6) 3.41 4.20-5.40 L [facility]anoWospoyhPWQFSWUAVU5407-11-02 04:28:00 Test Item Value Reference Range Interpretation Comments Hgb (test code = Hgb) 10.0 12.0-16.0 L [facility]anoPczrlvhRSYPCPMIJP1380-25-47 04:28:00 Test Item Value Reference Range Interpretation Comments MPV (test code = MPV) 10.1 7.4-10.4 N [facility]anoEflrqueCYNLACDFLW5741-47-32 04:28:00 Test Item Value Reference Range Interpretation Comments Segs-Bands # (test code = Segs-Bands #) 4.4 1.5-8.1 N [facility]anoEnsoghgLWDNLLKDAO6294-28-13 04:28:00 Test Item Value Reference Range Interpretation Comments Basophils (test code = 0.7 See_Comment N [Aut omated message] The Basophils) system which ge nerated this result tra nsmitted reference range : <=1.0. The reference r leo was not used to int erpret this result as normal/abnormal . [facility]anoZlckmzoVGSCKRTIMI7176-16-95 04:28:00 Test Item Value Reference Range Interpretation Comments Segs (test code = Segs) 70.7 45.0-75.0 N [facility]anoYdzuldfCEKDLVYGCP7368-07-25 04:28:00 Test Item Value Reference Range Interpretation Comments Monocytes # (test code 0.3 See_Comment N [Aut omated message] The = Monocytes #) system which generated this result tra nsmitted reference range : <=0.8. The reference r leo was not used to int erpret this result as normal/abnormal . [facility]anoKxqsjztMBKBBMTWXU5021-27-27 04:28:00 Test Item Value Reference Range Interpretation Comments Lymphocytes # (test code = Lymphocytes 1.2 1.0-5.5 N #) [facility]anoXxqzqqeZRLVFBKMDV5202-62-09 04:28:00 Test Item Value Reference Range Interpretation Comments Monocytes (test code = Monocytes) 4.5 2.0-12.0 N [facility]anoLmjhhbvAEFYUAUPIT5114-21-96 04:28:00 Test Item Value Reference Range Interpretation Comments Eosinophils (test code = 4.1 See_Comment H [A utomated message] The Eosinophils) system which ge nerated this result tra nsmitted reference range : <=4.0. The reference r leo was not used to int erpret this result as normal/abnormal . [facility]anoEteowfnDXDWATQXAT0981-53-04 04:28:00 Test Item Value Reference Range Interpretation Comments Lymphocytes (test code = Lymphocytes) 20.0 20.0-40.0 N [facility]anoNqcoqrtIEQAEDJOVP4921-60-22 04:28:00 Test Item Value Reference Range Interpretation Comments Basophils # (test code 0.0 See_Comment N [Aut omated message] The = Basophils #) system which generated this result tra nsmitted reference range : <=0.2. The reference r leo was not used to int erpret this result as normal/abnormal . [facility]anoRjcfptwMYROOJRKWE4493-41-30 04:28:00 Test Item Value Reference Range Interpretation Comments Eosinophils # (test code 0.3 See_Comment N [A utomated message] The = Eosinophils #) system whic h generated this result tra nsmitted reference range : <=0.5. The reference r leo was not used to int erpret this result as normal/abnormal . [facility] CenterJvlefvrZAHYZAFFX8973-01-85 04:28:00 Test Item Value Reference Range Interpretation Comments S Preg (test code = S Negative *NA*(04/14/2013 Preg) 23:28:00) [facility] CenterZsqumadXPWFWYKAG8470-72-82 04:28:00 Test Item Value Reference Range Interpretation Comments Lipase Lvl (test code = Lipase Lvl) 233 73-393 N [facility] CenterEtbumvoMQITFYWHV7016-30-52 04:28:00 Test Item Value Reference Range Interpretation Comments Globulin (test code = Globulin) 4.1 2.0-4.0 H [facility] CenterScbxuoeHPGQKJKDX7046-90-08 04:28:00 Test Item Value Reference Range Interpretation Comments AGAP (test code = AGAP) 10.5 10.0-20.0 N [facility] CenterCjfydfzSHWEYHJCL7839-78-17 04:28:00 Test Item Value Reference Range Interpretation Comments B/C Ratio (test code = B/C Ratio) 6 6-25 N [facility] CenterXreqwvaULXWIQSOA2577-80-31 04:28:00 Test Item Value Reference Range Interpretation Comments A/G Ratio (test code = A/G Ratio) 0.7 0.7-1.6 N [facility] CenterGmhofsnHQRTCLVYW2390-10-27 04:28:00 Test Item Value Reference Range Interpretation Comments eGFR (test code = eGFR) 130 [facility] CenterQxwfndbDCMSZEKHR3467-72-30 04:28:00 Test Item Value Reference Range Interpretation Comments Albumin Lvl (test code = Albumin Lvl) 2.9 3.5-5.0 L [facility] CenterMzjgsekJMTYRUZKI1814-42-00 04:28:00 Test Item Value Reference Range Interpretation Comments ASPARTATE TRANSAMINASE 20 See_Comment N [Aut omated message] (test code = ASPARTATE The s ystem which TRANSAMINASE) generated this result transmitted ref erence range: <=37. Th e reference range was not used to interpr et this result as normal/abnormal . [facility] CenterGdwtabiHKWNDLJGW6998-34-26 04:28:00 Test Item Value Reference Range Interpretation Comments Bili Total (test code = Bili Total) 0.5 0.2-1.3 N [facility] CenterVezbnhrANUVHDZBC3202-89-45 04:28:00 Test Item Value Reference Range Interpretation Comments Alk Phos (test code = Alk Phos) 89 39-136 N [facility] CenterHsoqmzcGLQEEOADP6650-05-84 04:28:00 Test Item Value Reference Range Interpretation Comments ALANINE AMINOTRANSFERASE 11 See_Comment N [A utomated message] (test code = ALANINE The sys tem which AMINOTRANSFERASE) generated this result transmitted ref erence range: <=65. Th e reference range was not used to int erpret this result as normal/abnormal . [facility] CenterMoqharsGIGOVBXJY1925-73-67 04:28:00 Test Item Value Reference Range Interpretation Comments Creatinine Lvl (test code = Creatinine 0.5 0.5-1.4 N Lvl) [facility] CenterVengmxbJZDNCKULA5969-22-90 04:28:00 Test Item Value Reference Range Interpretation Comments BUN (test code = BUN) 3 7-22 L [facility] CenterNcrphifPVZYRJFYR2799-03-77 04:28:00 Test Item Value Reference Range Interpretation Comments Glucose Lvl (test code = Glucose Lvl) 255 70-99 H [facility] CenterMmyozsdITAWECSUG4465-92-03 04:28:00 Test Item Value Reference Range Interpretation Comments Total Protein (test code = Total 7.0 6.4-8.4 N Protein) [facility] CenterQiyvzbtXYVANSWTK1420-62-69 04:28:00 Test Item Value Reference Range Interpretation Comments Calcium Lvl (test code = Calcium Lvl) 8.7 8.5-10.5 N [facility] CenterBemsfgzQDASPLCUP9007-11-69 04:28:00 Test Item Value Reference Range Interpretation Comments CO2 (test code = CO2) 29 24-32 N [facility] CenterKhtgruaMWAYFNNLL3530-63-64 04:28:00 Test Item Value Reference Range Interpretation Comments Chloride Lvl (test code = Chloride Lvl) 104 95-109 N [facility] CenterRuofqocDINLWVBJX1408-34-62 04:28:00 Test Item Value Reference Range Interpretation Comments Potassium Lvl (test code = Potassium 3.5 3.5-5.1 N Lvl) [facility] CenterRykqndpAODVVCVGY5001-84-38 04:28:00 Test Item Value Reference Range Interpretation Comments Sodium Lvl (test code = Sodium Lvl) 140 135-145 N [facility]anoBctrbmiCIODMCHWJW8573-05-53 04:28:00 Test Item Value Reference Range Interpretation Comments PROTIME (test code = PROTIME) 12.1 s 12.0-14.7 N [facility]anoQkrjqtfIHMQMKXJOD7093-95-87 04:28:00 Test Item Value Reference Range Interpretation Comments aPTT (test code = aPTT) 39.0 s 22.9-35.8 H [facility]anoRuxfitgUEHELUWEQF6060-19-90 04:28:00 Test Item Value Reference Range Interpretation Comments INR (test code = INR) 0.90 0.85-1.17 N [facility]anoGaedqfwXFLVOAJREO1091-23-97 04:28:00 Test Item Value Reference Range Interpretation Comments MCH (test code = MCH) 29.4 pg 27.0-31.0 N [facility]anoEwarnhpFGIEXQGQIR5917-38-28 04:28:00 Test Item Value Reference Range Interpretation Comments MCV (test code = MCV) 86.1 81.0-99.0 N [facility]anoQptuqlyHYAJEOQQOV5325-38-77 04:28:00 Test Item Value Reference Range Interpretation Comments Hct (test code = Hct) 29.4 36.0-48.0 L [facility]anoZnmfambEFAGFLMXHM1482-62-05 04:28:00 Test Item Value Reference Range Interpretation Comments RDW (test code = RDW) 14.0 11.5-14.5 N [facility]anoHbwhpsyGKANZNKXRG3585-98-79 04:28:00 Test Item Value Reference Range Interpretation Comments WBC X 10x3 (test code = WBC X 10x3) 6.2 3.7-10.4 N [facility]anoMsxamqqAXITTAFTLN2871-52-89 04:28:00 Test Item Value Reference Range Interpretation Comments Platelet (test code = Platelet) 178 133-450 N [facility]anoRrfgocaKEFYASSWWI1269-31-90 04:28:00 Test Item Value Reference Range Interpretation Comments MCHC (test code = MCHC) 34.1 32.0-36.0 N [facility]anoZfxiuqsARKJAIJFVN5870-28-21 04:28:00 Test Item Value Reference Range Interpretation Comments RBC X 10x6 (test code = RBC X 10x6) 3.41 4.20-5.40 L [facility]anoDlxnlgeEUREIZHXNP3694-10-61 04:28:00 Test Item Value Reference Range Interpretation Comments Hgb (test code = Hgb) 10.0 12.0-16.0 L [facility]anoOxtrbilDDVSHGHPSZ0565-37-08 04:28:00 Test Item Value Reference Range Interpretation Comments MPV (test code = MPV) 10.1 7.4-10.4 N [facility]anoIcztbldWDNWTSNRGC0909-61-41 04:28:00 Test Item Value Reference Range Interpretation Comments Segs-Bands # (test code = Segs-Bands #) 4.4 1.5-8.1 N [facility]anoFhvolisCRRTTDGIXF3576-97-22 04:28:00 Test Item Value Reference Range Interpretation Comments Basophils (test code = 0.7 See_Comment N [Aut omated message] The Basophils) system which ge nerated this result tra nsmitted reference range : <=1.0. The reference r leo was not used to int erpret this result as normal/abnormal . [facility]anoAalexdeZGHKHYLFUM3153-54-54 04:28:00 Test Item Value Reference Range Interpretation Comments Segs (test code = Segs) 70.7 45.0-75.0 N [facility]anoYzvdfyxXYFGZUQINJ1347-94-80 04:28:00 Test Item Value Reference Range Interpretation Comments Monocytes # (test code 0.3 See_Comment N [Aut omated message] The = Monocytes #) system which generated this result tra nsmitted reference range : <=0.8. The reference r leo was not used to int erpret this result as normal/abnormal . [facility]anoLvcdzfdIRIDJDQXPF0202-31-05 04:28:00 Test Item Value Reference Range Interpretation Comments Lymphocytes # (test code = Lymphocytes 1.2 1.0-5.5 N #) [facility]anoQhpadekDPMDUGYUKU6600-72-82 04:28:00 Test Item Value Reference Range Interpretation Comments Monocytes (test code = Monocytes) 4.5 2.0-12.0 N [facility]anoZblbvfqKUZNYTQOJZ4862-65-72 04:28:00 Test Item Value Reference Range Interpretation Comments Eosinophils (test code = 4.1 See_Comment H [A utomated message] The Eosinophils) system which ge nerated this result tra nsmitted reference range : <=4.0. The reference r leo was not used to int erpret this result as normal/abnormal . [facility]anoShhyzamLVPTENRDVZ6853-21-36 04:28:00 Test Item Value Reference Range Interpretation Comments Lymphocytes (test code = Lymphocytes) 20.0 20.0-40.0 N [facility]anoTegkicbMCYVAIISQF4272-97-09 04:28:00 Test Item Value Reference Range Interpretation Comments Basophils # (test code 0.0 See_Comment N [Aut omated message] The = Basophils #) system which generated this result tra nsmitted reference range : <=0.2. The reference r leo was not used to int erpret this result as normal/abnormal . [facility]UKIZQ[facility]PLUY[facility]13-[facility]-45 04:28:00 Test Item Value Reference Range Interpretation Comments Eosinophils # (test code 0.3 See_Comment N [A utomated message] The = Eosinophils #) system [employer] generated this result tra nsmitted reference range : <=0.5. The reference r leo was not used to int erpret this result as normal/abnormal . [facility] GLUCOSE YIUFFVN7533-56-04 01:12:00 Test Item Value Reference Range Interpretation Comments Gluc POC Lifscn (test code = Gluc POC 260 70-99 H Lifscn) [facility] GLUCOSE RGMWSNQ9179-69-18 01:12:00 Test Item Value Reference Range Interpretation Comments Comment1 (test code = Comment1) Notify RN/ [facility] GLUCOSE DZAYHWI2184-89-20 01:12:00 Test Item Value Reference Range Interpretation Comments Gluc POC Lifscn (test code = Gluc POC 260 70-99 H Lifscn) [facility] GLUCOSE VAPLZTF2656-70-27 01:12:00 Test Item Value Reference Range Interpretation Comments Comment1 (test code = Comment1) Notify RN/ [facility] GLUCOSE APVEUHF8728-93-64 01:12:00 Test Item Value Reference Range Interpretation Comments Gluc POC Lifscn (test code = Gluc POC 260 70-99 H Lifscn) [facility] GLUCOSE EYUREHP0716-04-50 01:12:00 Test Item Value Reference Range Interpretation Comments Comment1 (test code = Comment1) Notify RN/ [facility] GLUCOSE VLWIDIW7832-39-11 01:12:00 Test Item Value Reference Range Interpretation Comments Gluc POC Lifscn (test code = Gluc POC 260 70-99 H Lifscn) [facility] GLUCOSE HNTXBIN7284-14-86 01:12:00 Test Item Value Reference Range Interpretation Comments Comment1 (test code = Comment1) Notify RN/ [facility] GLUCOSE FQTQXQJ4810-77-01 01:12:00 Test Item Value Reference Range Interpretation Comments Gluc POC Lifscn (test code = Gluc POC 260 70-99 H Lifscn) [facility] GLUCOSE FVXHALH6160-14-91 01:12:00 Test Item Value Reference Range Interpretation Comments Comment1 (test code = Comment1) Ravi [facility]YS/ [facility]RghmlurSYJYWEGHWX9509-00-37 23:40:00 Test Item Value Reference Range Interpretation Comments UA Protein (test code = Trace A UA Protein) *ABN*(03/14/2012 18:40:00) [facility] NorthwestSzlylgmJUFUOOPUHU8381-18-18 23:40:00 Test Item Value Reference Range Interpretation Comments UA pH (test code = UA pH) 6.0 1 5.0-8.0 N [facility] NorthwestWbwtisdRMDDZFOVDX9651-62-87 23:40:00 Test Item Value Reference Range Interpretation Comments UA Ketones (test code = >=80 mg/dL UA Ketones) *NA*(03/14/2012 18:40:00) [facility] NorthwestCqszodsRRSUVXAWYM2684-40-04 23:40:00 Test Item Value Reference Range Interpretation Comments UA Glucose (test code = >=1000 mg/dL A UA Glucose) *ABN*(03/14/2012 18:40:00) [facility] NorthwestZctklmtQEJNUADELV0100-65-53 23:40:00 Test Item Value Reference Range Interpretation Comments UA Blood (test code = Negative (03/14/2012 N UA Blood) 18:40:00) [facility] NorthwestXcvbknuVDCGPNTHXW0056-36-02 23:40:00 Test Item Value Reference Range Interpretation Comments UA Nitrite (test code Negative (03/14/2012 N = UA Nitrite) 18:40:00) [facility] NorthwestYpuhsaxRNAAVEUFZY1432-78-75 23:40:00 Test Item Value Reference Range Interpretation Comments UA Urobilinogen (test code = UA 0.2 0.1-1.0 N Urobilinogen) [facility] NorthwestBcrattxHQYVBJDQUN4812-57-90 23:40:00 Test Item Value Reference Range Interpretation Comments UA Leuk Est (test Negative (03/14/2012 N code = UA Leuk Est) 18:40:00) [facility] NorthwestJbtobkkQLXREMQZSW8439-37-02 23:40:00 Test Item Value Reference Range Interpretation Comments UA Bili (test code = Negative *NA*(03/14/2012 UA Bili) 18:40:00) [facility] NorthwestWzzkglpQHYUTRBRMS8416-56-81 23:40:00 Test Item Value Reference Range Interpretation Comments UA Turbidity (test code = Clear (03/14/2012 N UA Turbidity) 18:40:00) [facility] NorthwestFzdbbeiWXEOKDOQSQ2327-68-82 23:40:00 Test Item Value Reference Range Interpretation Comments UA Color (test code = Yellow *NA*(03/14/2012 UA Color) 18:40:00) [facility] NorthwestVhssmsdTYXVFBEJTA6985-04-93 23:40:00 Test Item Value Reference Range Interpretation Comments UA Spec Grav (test >=1.030 A code = UA Spec Grav) *ABN*(03/14/2012 18:40:00) [facility] NorthwestLtkhzvkOBJXGCZZXM3367-21-69 23:40:00 Test Item Value Reference Range Interpretation Comments UA Sq Epi (test code Occasional /LPF N = UA Sq Epi) (03/14/2012 18:40:00) [facility] NorthwestVwmjguiCMXXLSBIOW1541-50-29 23:40:00 Test Item Value Reference Range Interpretation Comments UA WBC (test code = UA 3-5 /HPF (03/14/2012 N WBC) 18:40:00) [facility] NorthwestPsdmwkpZEAXAYUUIA7476-59-13 23:40:00 Test Item Value Reference Range Interpretation Comments UA Bacteria (test code Occasional /HPF N = UA Bacteria) (03/14/2012 18:40:00) [facility] NorthwestPoxhplgGVIWWFHOMR0184-29-48 23:40:00 Test Item Value Reference Range Interpretation Comments UA Protein (test code = Trace A UA Protein) *ABN*(03/14/2012 18:40:00) [facility] NorthwestUzdysmvQYRBAFLUNL9883-07-94 23:40:00 Test Item Value Reference Range Interpretation Comments UA pH (test code = UA pH) 6.0 1 5.0-8.0 N [facility] NorthwestWvgmsiiCXHOGDMLXE0154-13-92 23:40:00 Test Item Value Reference Range Interpretation Comments UA Ketones (test code = >=80 mg/dL UA Ketones) *NA*(03/14/2012 18:40:00) [facility] NorthwestFoinvhyDUZTRBEZOB0398-26-46 23:40:00 Test Item Value Reference Range Interpretation Comments UA Glucose (test code = >=1000 mg/dL A UA Glucose) *ABN*(03/14/2012 18:40:00) [facility] NorthwestDmdjxisNBXGBMSTWU6664-77-14 23:40:00 Test Item Value Reference Range Interpretation Comments UA Blood (test code = Negative (03/14/2012 N UA Blood) 18:40:00) [facility]xx[facility]lnSMBAIMHYML0973-[facility] 23:40:00 Test Item Value Reference Range Interpretation Comments UA Nitrite (test code Negative (03/14/2012 N = UA Nitrite) 18:40:00) [facility] NorthwestOtodouyCZZFBFTDFW2215-82-79 23:40:00 Test Item Value Reference Range Interpretation Comments UA Urobilinogen (test code = UA 0.2 0.1-1.0 N Urobilinogen) [facility] NorthwestNmhrcipYUWGOCWZPV9739-43-19 23:40:00 Test Item Value Reference Range Interpretation Comments UA Leuk Est (test Negative (03/14/2012 N code = UA Leuk Est) 18:40:00) [facility] NorthwestMghxngwCOMPHUTYXP0604-29-27 23:40:00 Test Item Value Reference Range Interpretation Comments UA Bili (test code = Negative *NA*(03/14/2012 UA Bili) 18:40:00) [facility] NorthwestDocwpddUVIVAVMYDP8871-22-19 23:40:00 Test Item Value Reference Range Interpretation Comments UA Turbidity (test code = Clear (03/14/2012 N UA Turbidity) 18:40:00) [facility] NorthwestFxmzqspXQRSOXHZNT6570-98-94 23:40:00 Test Item Value Reference Range Interpretation Comments UA Color (test code = Yellow *NA*(03/14/2012 UA Color) 18:40:00) [facility] NorthwestBlcvsniWFJBVRHEOR3084-10-40 23:40:00 Test Item Value Reference Range Interpretation Comments UA Spec Grav (test >=1.030 A code = UA Spec Grav) *ABN*(03/14/2012 18:40:00) [facility] NorthwestFyvmgsxUOTNWHGNGZ2385-07-01 23:40:00 Test Item Value Reference Range Interpretation Comments UA Sq Epi (test code Occasional /LPF N = UA Sq Epi) (03/14/2012 18:40:00) [facility] NorthwestUogdoerFDIACELSHB9835-26-30 23:40:00 Test Item Value Reference Range Interpretation Comments UA WBC (test code = UA 3-5 /HPF (03/14/2012 N WBC) 18:40:00) [facility]MvghmpzTHCXGHVPOF8976-18-84 23:40:00 Test Item Value Reference Range Interpretation Comments UA Bacteria (test code Occasional /HPF N = UA Bacteria) (03/14/2012 18:40:00) [facility]oundXxbbphrLBKYEYKZXE2032-97-89 23:40:00 Test Item Value Reference Range Interpretation Comments UA Protein (test code = Trace A UA Protein) *ABN*(03/14/2012 18:40:00) [facility] NorthwestHyurrffSUGYJPARLM5925-72-12 23:40:00 Test Item Value Reference Range Interpretation Comments UA pH (test code = UA pH) 6.0 1 5.0-8.0 N [facility]oundMvsjzvlKXPMFCRORB2100-25-08 23:40:00 Test Item Value Reference Range Interpretation Comments UA Ketones (test code = >=80 mg/dL UA Ketones) *NA*(03/14/2012 18:40:00) [facility] NorthwestQwetyvnSDILDJLYFZ3531-44-60 23:40:00 Test Item Value Reference Range Interpretation Comments UA Glucose (test code = >=1000 mg/dL A UA Glucose) *ABN*(03/14/2012 18:40:00) [facility] NorthwestGlzhbwjFSDDJHZCPN2402-24-70 23:40:00 Test Item Value Reference Range Interpretation Comments UA Blood (test code = Negative (03/14/2012 N UA Blood) 18:40:00) [facility] NorthwestPxozlsxYDGXBVBCVH7062-36-11 23:40:00 Test Item Value Reference Range Interpretation Comments UA Nitrite (test code Negative (03/14/2012 N = UA Nitrite) 18:40:00) [facility] NorthwestKlcpqfgZGCJGULGAH7597-45-18 23:40:00 Test Item Value Reference Range Interpretation Comments UA Urobilinogen (test code = UA 0.2 0.1-1.0 N Urobilinogen) [facility]oundEjwwtkvWEYTRFUFCP6907-56-33 23:40:00 Test Item Value Reference Range Interpretation Comments UA Leuk Est (test Negative (03/14/2012 N code = UA Leuk Est) 18:40:00) [facility]oundUvbahzeANZSSMXDNW1279-43-12 23:40:00 Test Item Value Reference Range Interpretation Comments UA Bili (test code = Negative *NA*(03/14/2012 UA Bili) 18:40:00) [facility] [place]oundSipbruwNVHWWXTNHL1908-50-94 23:40:00 Test Item Value Reference Range Interpretation Comments UA Turbidity (test code = Clear (03/14/2012 N UA Turbidity) 18:40:00) [facility] NorthwestNlqpzneXQXKGJYIEM5813-15-00 23:40:00 Test Item Value Reference Range Interpretation Comments UA Color (test code = Yellow *NA*(03/14/2012 UA Color) 18:40:00) [facility] NorthwestSpzhixuFAVVINVJOK8772-96-76 23:40:00 Test Item Value Reference Range Interpretation Comments UA Spec Grav (test >=1.030 A code = UA Spec Grav) *ABN*(03/14/2012 18:40:00) [facility] NorthwestVbzovaiSTAZCIMGFR0085-85-53 23:40:00 Test Item Value Reference Range Interpretation Comments UA Sq Epi (test code Occasional /LPF N = UA Sq Epi) (03/14/2012 18:40:00) [facility] NorthwestRlvidboLPUDIKOILJ0153-60-87 23:40:00 Test Item Value Reference Range Interpretation Comments UA WBC (test code = UA 3-5 /HPF (03/14/2012 N WBC) 18:40:00) [facility] NorthwestUsocmpxAMWLTESXDY4849-06-27 23:40:00 Test Item Value Reference Range Interpretation Comments UA Bacteria (test code Occasional /HPF N = UA Bacteria) (03/14/2012 18:40:00) [facility] NorthwestMtpfjlbOJAAXFYZCC3295-86-68 23:40:00 Test Item Value Reference Range Interpretation Comments UA Protein (test code = Trace A UA Protein) *ABN*(03/14/2012 18:40:00) [facility] NorthwestLyhquriZXCZTOUYVU2924-71-63 23:40:00 Test Item Value Reference Range Interpretation Comments UA pH (test code = UA pH) 6.0 1 5.0-8.0 N [facility] NorthwestIievdyqWMBKJCCTJO2330-89-14 23:40:00 Test Item Value Reference Range Interpretation Comments UA Ketones (test code = >=80 mg/dL UA Ketones) *NA*(03/14/2012 18:40:00) [facility] NorthwestFcqgozgPCZXUSTQQG3225-35-92 23:40:00 Test Item Value Reference Range Interpretation Comments UA Glucose (test code = >=1000 mg/dL A UA Glucose) *ABN*(03/14/2012 18:40:00) [facility] NorthwestWsgsrhdARPINDDJVW5735-30-71 23:40:00 Test Item Value Reference Range Interpretation Comments UA Blood (test code = Negative (03/14/2012 N UA Blood) 18:40:00) [facility] NorthwestAazvamzSXAZVGLJKB4677-06-30 23:40:00 Test Item Value Reference Range Interpretation Comments UA Nitrite (test code Negative (03/14/2012 N = UA Nitrite) 18:40:00) [facility] NorthwestGngovltOFFQOZOJQB3201-50-62 23:40:00 Test Item Value Reference Range Interpretation Comments UA Urobilinogen (test code = UA 0.2 0.1-1.0 N Urobilinogen) [facility] NorthwestLyqwsodNODVYOOPGS0518-21-63 23:40:00 Test Item Value Reference Range Interpretation Comments UA Leuk Est (test Negative (03/14/2012 N code = UA Leuk Est) 18:40:00) [facility] NorthwestKybrvgoHQJZXDGXNZ6149-57-73 23:40:00 Test Item Value Reference Range Interpretation Comments UA Bili (test code = Negative *NA*(03/14/2012 UA Bili) 18:40:00) [facility] NorthwestYovlrfkACZSTKNLLR4651-11-51 23:40:00 Test Item Value Reference Range Interpretation Comments UA Turbidity (test code = Clear (03/14/2012 N UA Turbidity) 18:40:00) [facility] NorthwestUsibjrnAKQIGUBUSW2151-10-79 23:40:00 Test Item Value Reference Range Interpretation Comments UA Color (test code = Yellow *NA*(03/14/2012 UA Color) 18:40:00) [facility] NorthwestJbhvdyfUUCGZXWAAK9569-35-56 23:40:00 Test Item Value Reference Range Interpretation Comments UA Spec Grav (test >=1.030 A code = UA Spec Grav) *ABN*(03/14/2012 18:40:00) [facility] NorthwestWvhheccSNOXORNLYO0525-09-18 23:40:00 Test Item Value Reference Range Interpretation Comments UA Sq Epi (test code Occasional /LPF N = UA Sq Epi) (03/14/2012 18:40:00) [facility] NorthwestPmoqiowHGGDVWPHPV9215-54-17 23:40:00 Test Item Value Reference Range Interpretation Comments UA WBC (test code = UA 3-5 /HPF (03/14/2012 N WBC) 18:40:00) [facility]AyglpkwESIMZQXUJK3277-08-54 23:40:00 Test Item Value Reference Range Interpretation Comments UA Bacteria (test code Occasional /HPF N = UA Bacteria) (03/14/2012 18:40:00) [facility] NorthwestDykocofNNLLPRYQXA2876-72-17 23:40:00 Test Item Value Reference Range Interpretation Comments UA Protein (test code = Trace A UA Protein) *ABN*(03/14/2012 18:40:00) [facility] NorthwestCsjiriqUZXIYOHKGX5338-10-90 23:40:00 Test Item Value Reference Range Interpretation Comments UA pH (test code = UA pH) 6.0 1 5.0-8.0 N [facility] NorthwestNxtryjyXLSIRMIYFH0675-26-59 23:40:00 Test Item Value Reference Range Interpretation Comments UA Ketones (test code = >=80 mg/dL UA Ketones) *NA*(03/14/2012 18:40:00) [facility] NorthwestJjyclwfEGKODXNTEX1826-81-36 23:40:00 Test Item Value Reference Range Interpretation Comments UA Glucose (test code = >=1000 mg/dL A UA Glucose) *ABN*(03/14/2012 18:40:00) [facility] NorthwestUvjgzspQNFVAOLYMB4164-34-49 23:40:00 Test Item Value Reference Range Interpretation Comments UA Blood (test code = Negative (03/14/2012 N UA Blood) 18:40:00) [facility] NorthwestUkusrczZRKNGWZJWA5093-34-51 23:40:00 Test Item Value Reference Range Interpretation Comments UA Nitrite (test code Negative (03/14/2012 N = UA Nitrite) 18:40:00) [facility] NorthwestFagvhbkNDWOWVFUAI1678-82-71 23:40:00 Test Item Value Reference Range Interpretation Comments UA Urobilinogen (test code = UA 0.2 0.1-1.0 N Urobilinogen) [facility]oundQgzviaeCFWKHBVEUD3451-77-75 23:40:00 Test Item Value Reference Range Interpretation Comments UA Leuk Est (test Negative (03/14/2012 N code = UA Leuk Est) 18:40:00) [facility] NorthwestFqmzbnmNMRPCMFUJY0159-66-49 23:40:00 Test Item Value Reference Range Interpretation Comments UA Bili (test code = Negative *NA*(03/14/2012 UA Bili) 18:40:00) [facility]oundJtyflxvFIAPULXIEN8540-30-91 23:40:00 Test Item Value Reference Range Interpretation Comments UA Turbidity (test code = Clear (03/14/2012 N UA Turbidity) 18:40:00) [facility] NorthwestQizbidcCRYOFKVXDM8056-19-61 23:40:00 Test Item Value Reference Range Interpretation Comments UA Color (test code = Yellow *NA*(03/14/2012 UA Color) 18:40:00) [facility] NorthwestVoavejxQDKRULHTAP9250-05-09 23:40:00 Test Item Value Reference Range Interpretation Comments UA Spec Grav (test >=1.030 A code = UA Spec Grav) *ABN*(03/14/2012 18:40:00) [facility] NorthwestXqdqxswUAOLSMXIKK4896-44-93 23:40:00 Test Item Value Reference Range Interpretation Comments UA Sq Epi (test code Occasional /LPF N = UA Sq Epi) (03/14/2012 18:40:00) [facility] NorthwestKklnbapYBABOCFUEO2629-03-76 23:40:00 Test Item Value Reference Range Interpretation Comments UA WBC (test code = UA 3-5 /HPF (03/14/2012 N WBC) 18:40:00) [facility] NorthwestWgjwwdlIVTVZWDTHD2427-78-11 23:40:00 Test Item Value Reference Range Interpretation Comments UA Bacteria (test code Occasional /HPF N = UA Bacteria) (03/14/2012 18:40:00) [facility] CenterMwxvhgdAMAQHESGU6641-68-64 22:50:00 Test Item Value Reference Range Interpretation Comments S Preg (test code = S Negative *NA*(03/14/2012 Preg) 17:50:00) [facility] CenterHzxmtwgWCFZGOUUB2696-11-15 22:50:00 Test Item Value Reference Range Interpretation Comments Lipase Lvl (test code = Lipase Lvl) 45 73-393 L [facility] CenterQlwuhrkPEWOWPOSR4446-63-50 22:50:00 Test Item Value Reference Range Interpretation Comments A/G Ratio (test code = A/G Ratio) 1.2 0.7-1.6 N [facility] CenterIlfqlkfBRCYLEWAX3406-86-71 22:50:00 Test Item Value Reference Range Interpretation Comments Globulin (test code = Globulin) 3.8 2.0-4.0 N [facility] CenterMnwkumiNKQPIQILY4664-24-18 22:50:00 Test Item Value Reference Range Interpretation Comments B/C Ratio (test code = B/C Ratio) 21 6-25 N [facility] CenterTohdpzlVHPWDMOQU7998-92-88 22:50:00 Test Item Value Reference Range Interpretation Comments AGAP (test code = AGAP) 16.8 10.0-20.0 N [facility] CenterOjdphbfTCAZOQYWF0676-61-59 22:50:00 Test Item Value Reference Range Interpretation Comments Bili Total (test code = Bili Total) 1.1 0.2-1.3 N [facility] CenterZdpzhhpUJVRVSGEB2536-37-91 22:50:00 Test Item Value Reference Range Interpretation Comments Total Protein (test code = Total 8.2 6.4-8.4 N Protein) [facility] CenterKkzrwiwFQNAZYPUB2101-60-19 22:50:00 Test Item Value Reference Range Interpretation Comments Potassium Lvl (test code = Potassium 3.8 3.5-5.1 N Lvl) [facility] CenterMewlutzEVDKIWOBP3339-89-19 22:50:00 Test Item Value Reference Range Interpretation Comments Creatinine Lvl (test code = Creatinine 0.7 0.5-1.4 N Lvl) [facility] CenterHsfcknyTWHASHZEQ6600-87-23 22:50:00 Test Item Value Reference Range Interpretation Comments Sodium Lvl (test code = Sodium Lvl) 139 135-145 N [facility] CenterLmhzwgnFCOHXELTT8695-28-31 22:50:00 Test Item Value Reference Range Interpretation Comments Chloride Lvl (test code = Chloride Lvl) 99 95-109 N [facility] CenterDpkbhzxKLOLKIUSP1860-02-38 22:50:00 Test Item Value Reference Range Interpretation Comments CO2 (test code = CO2) 27 24-32 N [facility] CenterKbclzsnYBQKXGCXN3180-26-44 22:50:00 Test Item Value Reference Range Interpretation Comments Glucose Lvl (test code = Glucose Lvl) 301 70-99 H [facility] CenterUgzdjdiUQZQWPYKE2013-85-62 22:50:00 Test Item Value Reference Range Interpretation Comments BUN (test code = BUN) 15 7-22 N [facility] CenterQjahtiuQOMOYKXYK9320-35-60 22:50:00 Test Item Value Reference Range Interpretation Comments ALT (test code = ALT) 24 See_Comment N [Auto mated message] The system which ge nerated this result transmit rohit reference range : <=65. The reference range was not used to interpr et this result as reji l/abnormal. [facility] CenterVckaidiBIZMQPMMP8779-29-63 22:50:00 Test Item Value Reference Range Interpretation Comments AST (test code = AST) 20 See_Comment N [Auto mated message] The system which ge nerated this result transmit rohit reference range : <=37. The reference range was not used to interpr et this result as reji l/abnormal. [facility] CenterWkvluedJEYYVPMDK2767-87-14 22:50:00 Test Item Value Reference Range Interpretation Comments Alk Phos (test code = Alk Phos) 67 39-136 N [facility] CenterPvedmotVSVWMXFPH2128-00-11 22:50:00 Test Item Value Reference Range Interpretation Comments Albumin Lvl (test code = Albumin Lvl) 4.4 3.5-5.0 N [facility] CenterLjwqiypAFCTLZOFL5616-92-99 22:50:00 Test Item Value Reference Range Interpretation Comments Calcium Lvl (test code = Calcium Lvl) 9.9 8.5-10.5 N [facility]FqiedpcLLVNMVHFRS8860-45-98 22:50:00 Test Item Value Reference Range Interpretation Comments MPV (test code = MPV) 11.8 7.4-10.4 H [facility]anoVaggerqEAHALEFLFI9490-27-51 22:50:00 Test Item Value Reference Range Interpretation Comments MCHC (test code = MCHC) 35.9 32.0-36.0 N [facility]anoJjtfzsoAARPJNBVTK3840-57-55 22:50:00 Test Item Value Reference Range Interpretation Comments MCH (test code = MCH) 31.2 pg 27.0-31.0 H [facility]anoNxcqurpQSBIMSNNNX5622-79-13 22:50:00 Test Item Value Reference Range Interpretation Comments Platelet (test code = Platelet) 189 133-450 N [facility]anoSxwdothMTTDFTQATT5518-28-03 22:50:00 Test Item Value Reference Range Interpretation Comments RDW (test code = RDW) 13.1 11.5-14.5 N [facility]anoGirxyniRLTVIJNJFJ9650-03-63 22:50:00 Test Item Value Reference Range Interpretation Comments Hct (test code = Hct) 40.7 36.0-48.0 N [facility]anoZibpnsfKISSWMKNBX8292-47-15 22:50:00 Test Item Value Reference Range Interpretation Comments Hgb (test code = Hgb) 14.6 12.0-16.0 N [facility]anoLspjtynWKHJFLJCBA2009-68-41 22:50:00 Test Item Value Reference Range Interpretation Comments MCV (test code = MCV) 87.0 81.0-99.0 N [facility]anoZvkyrplXDQQTMEVYD1344-12-74 22:50:00 Test Item Value Reference Range Interpretation Comments WBC (test code = WBC) 11.7 3.7-10.4 H [facility]anoVkvyyrgUXLUEYAOSX1936-39-60 22:50:00 Test Item Value Reference Range Interpretation Comments RBC (test code = RBC) 4.68 4.20-5.40 N [facility]anoJherqhtGCXVKAWJRN7653-54-85 22:50:00 Test Item Value Reference Range Interpretation Comments Basophils # (test code 0.0 See_Comment N [Aut omated message] The = Basophils #) system which generated this result tra nsmitted reference range : <=0.2. The reference r leo was not used to int erpret this result as normal/abnormal . [facility]anoUrlniyzJYTTZSXXPJ6077-49-55 22:50:00 Test Item Value Reference Range Interpretation Comments Basophils (test code = 0.2 See_Comment N [Aut omated message] The Basophils) system which ge nerated this result tra nsmitted reference range : <=1.0. The reference r leo was not used to int erpret this result as normal/abnormal . [facility]anoPzpkfvaMCBNJIHQOY1751-23-72 22:50:00 Test Item Value Reference Range Interpretation Comments Eosinophils # (test code 0.0 See_Comment N [A utomated message] The = Eosinophils #) system whic h generated this result tra nsmitted reference range : <=0.5. The reference r leo was not used to int erpret this result as normal/abnormal . [facility]anoEiyovolCGOOTLTYND9827-56-64 22:50:00 Test Item Value Reference Range Interpretation Comments Monocytes # (test code 0.4 See_Comment N [Aut omated message] The = Monocytes #) system which generated this result tra nsmitted reference range : <=0.8. The reference r leo was not used to int erpret this result as normal/abnormal . [facility]anoZovprfyRXLIOEQHWU8539-93-19 22:50:00 Test Item Value Reference Range Interpretation Comments Segs-Bands # (test code = Segs-Bands #) 10.6 1.5-8.1 H [facility]anoHhqglwmDNCUDKOMGP0248-17-57 22:50:00 Test Item Value Reference Range Interpretation Comments Lymphocytes # (test code = Lymphocytes 0.7 1.0-5.5 L #) [facility]anoXsjjitkVYAFCCHDMX9465-93-83 22:50:00 Test Item Value Reference Range Interpretation Comments Monocytes (test code = Monocytes) 3.4 2.0-12.0 N [facility]anoMihjozuDBKHSXVKYT5246-16-31 22:50:00 Test Item Value Reference Range Interpretation Comments Plt Morph (test code = Normal (03/14/2012 N Plt Morph) 17:50:00) [facility]anoPwmswieKVQBJVAJJH3081-40-56 22:50:00 Test Item Value Reference Range Interpretation Comments Lymphocytes (test code = Lymphocytes) 6.0 20.0-40.0 L [facility]anoGcpuatnVHUAMXXQZL8988-71-14 22:50:00 Test Item Value Reference Range Interpretation Comments Eosinophils (test code = 0.0 See_Comment N [A utomated message] The Eosinophils) system which ge nerated this result tra nsmitted reference range : <=4.0. The reference r leo was not used to int erpret this result as normal/abnormal . [facility]anoSeqxizqSVNNRTINVE5447-53-68 22:50:00 Test Item Value Reference Range Interpretation Comments Segs (test code = Segs) 90.4 45.0-75.0 H [facility]anoBrvnuvlKFGPAAZKIH1047-62-57 22:50:00 Test Item Value Reference Range Interpretation Comments RBC Morph (test code = Normal (03/14/2012 N RBC Morph) 17:50:00) [facility] CenterDautmifHPXEGALMF6748-83-77 22:50:00 Test Item Value Reference Range Interpretation Comments S Preg (test code = S Negative *NA*(03/14/2012 Preg) 17:50:00) [facility] CenterEbasmcjULWCBQKAI7281-55-02 22:50:00 Test Item Value Reference Range Interpretation Comments Lipase Lvl (test code = Lipase Lvl) 45 73-393 L [facility] CenterUcqbhfpWBAZJZQXU9601-76-77 22:50:00 Test Item Value Reference Range Interpretation Comments A/G Ratio (test code = A/G Ratio) 1.2 0.7-1.6 N [facility] CenterRfntspkEEQMSVTLD0030-63-29 22:50:00 Test Item Value Reference Range Interpretation Comments Globulin (test code = Globulin) 3.8 2.0-4.0 N [facility] CenterGzenivpFABCXTVQX3393-88-72 22:50:00 Test Item Value Reference Range Interpretation Comments B/C Ratio (test code = B/C Ratio) 21 6-25 N [facility] CenterKrquaccMLJOJKVGE2293-50-99 22:50:00 Test Item Value Reference Range Interpretation Comments AGAP (test code = AGAP) 16.8 10.0-20.0 N [facility] CenterObbdlkvRSNOXAIKV2434-62-18 22:50:00 Test Item Value Reference Range Interpretation Comments Bili Total (test code = Bili Total) 1.1 0.2-1.3 N [facility] CenterNsgvckqOUNXLIBAX4373-04-00 22:50:00 Test Item Value Reference Range Interpretation Comments Total Protein (test code = Total 8.2 6.4-8.4 N Protein) [facility] CenterRjvtdfvIGMMNFNXS8338-11-80 22:50:00 Test Item Value Reference Range Interpretation Comments Potassium Lvl (test code = Potassium 3.8 3.5-5.1 N Lvl) [facility] CenterFnpjlemNGTMNUUTD4679-19-65 22:50:00 Test Item Value Reference Range Interpretation Comments Creatinine Lvl (test code = Creatinine 0.7 0.5-1.4 N Lvl) [facility] CenterFjsdpjhZWXEQYAYT4417-20-37 22:50:00 Test Item Value Reference Range Interpretation Comments Sodium Lvl (test code = Sodium Lvl) 139 135-145 N [facility] CenterIdfcxsmOCQUWYLFG4449-77-95 22:50:00 Test Item Value Reference Range Interpretation Comments Chloride Lvl (test code = Chloride Lvl) 99 95-109 N [facility] CenterZpfpjuhTBNHSKMLV7320-20-98 22:50:00 Test Item Value Reference Range Interpretation Comments CO2 (test code = CO2) 27 24-32 N [facility] CenterQilufbqXDTFWFWUV0925-79-56 22:50:00 Test Item Value Reference Range Interpretation Comments Glucose Lvl (test code = Glucose Lvl) 301 70-99 H [facility] CenterXsxgnppFXXXEGKNO7434-33-57 22:50:00 Test Item Value Reference Range Interpretation Comments BUN (test code = BUN) 15 7-22 N [facility] CenterGrshvulPMSHLKPAJ4861-17-99 22:50:00 Test Item Value Reference Range Interpretation Comments ALT (test code = ALT) 24 See_Comment N [Auto mated message] The system which ge nerated this result transmit rohit reference range : <=65. The reference range was not used to interpr et this result as reji l/abnormal. [facility] CenterPpvxevyQGSXBAXXP1891-03-73 22:50:00 Test Item Value Reference Range Interpretation Comments AST (test code = AST) 20 See_Comment N [Auto mated message] The system which ge nerated this result transmit rohit reference range : <=37. The reference range was not used to interpr et this result as erji l/abnormal. [facility] CenterFaolyefPCKDXROCM0030-00-35 22:50:00 Test Item Value Reference Range Interpretation Comments Alk Phos (test code = Alk Phos) 67 39-136 N [facility] CenterYlbrwhhMTUJDXJOV1864-16-20 22:50:00 Test Item Value Reference Range Interpretation Comments Albumin Lvl (test code = Albumin Lvl) 4.4 3.5-5.0 N [facility] CenterIwytiimPGQONMDUM6057-42-69 22:50:00 Test Item Value Reference Range Interpretation Comments Calcium Lvl (test code = Calcium Lvl) 9.9 8.5-10.5 N [facility]anoCrsuosxPJVSEWIQML2021-99-44 22:50:00 Test Item Value Reference Range Interpretation Comments MPV (test code = MPV) 11.8 7.4-10.4 H [facility]anoPqsgpsdYLUBETMTYO3157-91-32 22:50:00 Test Item Value Reference Range Interpretation Comments MCHC (test code = MCHC) 35.9 32.0-36.0 N [facility]anoXenzlnrNSVCPPOOQX3445-29-22 22:50:00 Test Item Value Reference Range Interpretation Comments MCH (test code = MCH) 31.2 pg 27.0-31.0 H [facility]anoXamhhfeXEKMFWNDHY1228-77-82 22:50:00 Test Item Value Reference Range Interpretation Comments Platelet (test code = Platelet) 189 133-450 N [facility]anoXwmxrdhPUZBVCVQGC4112-77-46 22:50:00 Test Item Value Reference Range Interpretation Comments RDW (test code = RDW) 13.1 11.5-14.5 N [facility]anoPwckmvmQQWXILDGIX4934-29-27 22:50:00 Test Item Value Reference Range Interpretation Comments Hct (test code = Hct) 40.7 36.0-48.0 N [facility]anoYnqhcigKJJXRTACJZ8326-85-55 22:50:00 Test Item Value Reference Range Interpretation Comments Hgb (test code = Hgb) 14.6 12.0-16.0 N [facility]anoKprdhwyAPKYQQYXJN6943-18-64 22:50:00 Test Item Value Reference Range Interpretation Comments MCV (test code = MCV) 87.0 81.0-99.0 N [facility]anoOywfhyeKKPPPIERYU5202-44-74 22:50:00 Test Item Value Reference Range Interpretation Comments WBC (test code = WBC) 11.7 3.7-10.4 H [facility]anoInjnyuiQSXAFLCZRG1253-34-59 22:50:00 Test Item Value Reference Range Interpretation Comments RBC (test code = RBC) 4.68 4.20-5.40 N [facility]anoPtlazppKUJRTOLVMG5317-24-81 22:50:00 Test Item Value Reference Range Interpretation Comments Basophils # (test code 0.0 See_Comment N [Aut omated message] The = Basophils #) system which generated this result tra nsmitted reference range : <=0.2. The reference r leo was not used to int erpret this result as normal/abnormal . [facility]anoDpmrrokYGMCFYDLFC7752-38-19 22:50:00 Test Item Value Reference Range Interpretation Comments Basophils (test code = 0.2 See_Comment N [Aut omated message] The Basophils) system which ge nerated this result tra nsmitted reference range : <=1.0. The reference r leo was not used to int erpret this result as normal/abnormal . [facility]anoYyjywggHCMQQELTDE2476-36-97 22:50:00 Test Item Value Reference Range Interpretation Comments Eosinophils # (test code 0.0 See_Comment N [A utomated message] The = Eosinophils #) system ic h generated this result tra nsmitted reference range : <=0.5. The reference r leo was not used to int erpret this result as normal/abnormal . [facility]anoEwauszfMHCIODRUQZ5385-76-63 22:50:00 Test Item Value Reference Range Interpretation Comments Monocytes # (test code 0.4 See_Comment N [Aut omated message] The = Monocytes #) system which generated this result tra nsmitted reference range : <=0.8. The reference r leo was not used to int erpret this result as normal/abnormal . [facility]anoPmmosvkIGLRIQABCW0705-24-82 22:50:00 Test Item Value Reference Range Interpretation Comments Segs-Bands # (test code = Segs-Bands #) 10.6 1.5-8.1 H [facility]anoPxqlivhWIXYPWXLKX7906-70-86 22:50:00 Test Item Value Reference Range Interpretation Comments Lymphocytes # (test code = Lymphocytes 0.7 1.0-5.5 L #) [facility]anoYmbnupeMOXXNEOUVQ6701-27-02 22:50:00 Test Item Value Reference Range Interpretation Comments Monocytes (test code = Monocytes) 3.4 2.0-12.0 N [facility]anoZuuwvlqBOXYDZZADC2604-35-70 22:50:00 Test Item Value Reference Range Interpretation Comments Plt Morph (test code = Normal (03/14/2012 N Plt Morph) 17:50:00) [facility]anoWdyxptvSXRIHRBGCV3844-61-17 22:50:00 Test Item Value Reference Range Interpretation Comments Lymphocytes (test code = Lymphocytes) 6.0 20.0-40.0 L [facility]anoCkcftxyMOIIFLYRYR7376-55-19 22:50:00 Test Item Value Reference Range Interpretation Comments Eosinophils (test code = 0.0 See_Comment N [A utomated message] The Eosinophils) system which ge nerated this result tra nsmitted reference range : <=4.0. The reference r leo was not used to int erpret this result as normal/abnormal . [facility]DvdqxpkZPBNTVIHAU0141-05-22 22:50:00 Test Item Value Reference Range Interpretation Comments Segs (test code = Segs) 90.4 45.0-75.0 H [facility]anoBamqfgnWPZWLJOHJA0698-93-60 22:50:00 Test Item Value Reference Range Interpretation Comments RBC Morph (test code = Normal (03/14/2012 N RBC Morph) 17:50:00) [facility] CenterElohnigDGTZSYDSK4332-24-23 22:50:00 Test Item Value Reference Range Interpretation Comments S Preg (test code = S Negative *NA*(03/14/2012 Preg) 17:50:00) [facility] CenterPnimtwlEZKFCZNZC1991-91-19 22:50:00 Test Item Value Reference Range Interpretation Comments Lipase Lvl (test code = Lipase Lvl) 45 73-393 L [facility] CenterUipzqknKUBTDCPKW6776-74-52 22:50:00 Test Item Value Reference Range Interpretation Comments A/G Ratio (test code = A/G Ratio) 1.2 0.7-1.6 N [facility] CenterWefnkscMXALBHFMD9863-11-15 22:50:00 Test Item Value Reference Range Interpretation Comments Globulin (test code = Globulin) 3.8 2.0-4.0 N [facility] CenterHcapymaZQRFZEFPM2441-08-02 22:50:00 Test Item Value Reference Range Interpretation Comments B/C Ratio (test code = B/C Ratio) 21 6-25 N [facility] CenterEiglwccVAMGCXWQD8007-56-58 22:50:00 Test Item Value Reference Range Interpretation Comments AGAP (test code = AGAP) 16.8 10.0-20.0 N [facility] CenterWosbehkQLIZYWQWN6129-00-45 22:50:00 Test Item Value Reference Range Interpretation Comments Bili Total (test code = Bili Total) 1.1 0.2-1.3 N [facility] CenterYmwaquuMEEIOUFAC9140-86-21 22:50:00 Test Item Value Reference Range Interpretation Comments Total Protein (test code = Total 8.2 6.4-8.4 N Protein) [facility] CenterUyxkfckREVBAFYMH5077-04-19 22:50:00 Test Item Value Reference Range Interpretation Comments Potassium Lvl (test code = Potassium 3.8 3.5-5.1 N Lvl) [facility] CenterCvvmscwJDMYGPWEY2529-78-64 22:50:00 Test Item Value Reference Range Interpretation Comments Creatinine Lvl (test code = Creatinine 0.7 0.5-1.4 N Lvl) [facility] CenterEpzkaqtBIQIODEUB2653-69-98 22:50:00 Test Item Value Reference Range Interpretation Comments Sodium Lvl (test code = Sodium Lvl) 139 135-145 N [facility] CenterLvowfbnBLTISFYGK1374-12-97 22:50:00 Test Item Value Reference Range Interpretation Comments Chloride Lvl (test code = Chloride Lvl) 99 95-109 N [facility] CenterWddblcrFVSZCORPM5845-03-75 22:50:00 Test Item Value Reference Range Interpretation Comments CO2 (test code = CO2) 27 24-32 N [facility] CenterDnzxhvuMSVXHVYCY4127-15-87 22:50:00 Test Item Value Reference Range Interpretation Comments Glucose Lvl (test code = Glucose Lvl) 301 70-99 H [facility] CenterRmdasvoXHSERBOPP0046-53-90 22:50:00 Test Item Value Reference Range Interpretation Comments BUN (test code = BUN) 15 7-22 N [facility] CenterPbbneauLDFIOAYYV1524-76-38 22:50:00 Test Item Value Reference Range Interpretation Comments ALT (test code = ALT) 24 See_Comment N [Auto mated message] The system which ge nerated this result transmit rohit reference range : <=65. The reference range was not used to interpr et this result as reji l/abnormal. [facility] CenterBbgarjwGUAGEURER6806-06-84 22:50:00 Test Item Value Reference Range Interpretation Comments AST (test code = AST) 20 See_Comment N [Auto mated message] The system which ge nerated this result transmit rohit reference range : <=37. The reference range was not used to interpr et this result as reji l/abnormal. [facility] StationXvdgrwaTHOKOVSLZ6770-58-23 22:50:00 Test Item Value Reference Range Interpretation Comments Alk Phos (test code = Alk Phos) 67 39-136 N [facility] StationKksfynmTZTOLDQVK8048-77-89 22:50:00 Test Item Value Reference Range Interpretation Comments Albumin Lvl (test code = Albumin Lvl) 4.4 3.5-5.0 N [facility] CenterKchmctoMISFSJTUO9175-27-50 22:50:00 Test Item Value Reference Range Interpretation Comments Calcium Lvl (test code = Calcium Lvl) 9.9 8.5-10.5 N [facility] StationSyjwsetQQTZVGZWAS6310-81-98 22:50:00 Test Item Value Reference Range Interpretation Comments MPV (test code = MPV) 11.8 7.4-10.4 H [facility]anoQiguqbbVGACLYPNPS3141-54-25 22:50:00 Test Item Value Reference Range Interpretation Comments MCHC (test code = MCHC) 35.9 32.0-36.0 N [facility] StationHaamcdoERBJLBOSKP5909-46-12 22:50:00 Test Item Value Reference Range Interpretation Comments MCH (test code = MCH) 31.2 pg 27.0-31.0 H [facility] StationKybpewwLIIOMIRFXK1420-33-23 22:50:00 Test Item Value Reference Range Interpretation Comments Platelet (test code = Platelet) 189 133-450 N [facility]anoZfefihzDALKHFFHMJ7129-19-41 22:50:00 Test Item Value Reference Range Interpretation Comments RDW (test code = RDW) 13.1 11.5-14.5 N [facility]anoXetzoeaERNTKKWPJF3002-76-01 22:50:00 Test Item Value Reference Range Interpretation Comments Hct (test code = Hct) 40.7 36.0-48.0 N [facility]anoGbgsftrBAUSMMMHGE4452-65-83 22:50:00 Test Item Value Reference Range Interpretation Comments Hgb (test code = Hgb) 14.6 12.0-16.0 N [facility]anoBxrnqhlSLHCUYZWYI7589-00-48 22:50:00 Test Item Value Reference Range Interpretation Comments MCV (test code = MCV) 87.0 81.0-99.0 N [facility]anoXtgofrxNSTJSEUVLY5433-72-77 22:50:00 Test Item Value Reference Range Interpretation Comments WBC (test code = WBC) 11.7 3.7-10.4 H [facility]anoQtwfccoXLGLXEBENF1745-83-58 22:50:00 Test Item Value Reference Range Interpretation Comments RBC (test code = RBC) 4.68 4.20-5.40 N [facility]anoBqlcglxLHTZHTFITA0755-90-91 22:50:00 Test Item Value Reference Range Interpretation Comments Basophils # (test code 0.0 See_Comment N [Aut omated message] The = Basophils #) system which generated this result tra nsmitted reference range : <=0.2. The reference r leo was not used to int erpret this result as normal/abnormal . [facility]anoOvjmtliBQITUECPSV0366-14-83 22:50:00 Test Item Value Reference Range Interpretation Comments Basophils (test code = 0.2 See_Comment N [Aut omated message] The Basophils) system which ge nerated this result tra nsmitted reference range : <=1.0. The reference r leo was not used to int erpret this result as normal/abnormal . [facility]anoRhhkgcpNZWHPAZTJW3691-05-01 22:50:00 Test Item Value Reference Range Interpretation Comments Eosinophils # (test code 0.0 See_Comment N [A utomated message] The = Eosinophils #) system whic h generated this result tra nsmitted reference range : <=0.5. The reference r leo was not used to int erpret this result as normal/abnormal . [facility]anoLbyexiqPGWLNJZDVL9884-57-18 22:50:00 Test Item Value Reference Range Interpretation Comments Monocytes # (test code 0.4 See_Comment N [Aut omated message] The = Monocytes #) system which generated this result tra nsmitted reference range : <=0.8. The reference r leo was not used to int erpret this result as normal/abnormal . [facility]anoPumfkccAVPWNTUKPQ2036-03-47 22:50:00 Test Item Value Reference Range Interpretation Comments Segs-Bands # (test code = Segs-Bands #) 10.6 1.5-8.1 H [facility]anoBjitiubXHWFRKCYSB5867-71-33 22:50:00 Test Item Value Reference Range Interpretation Comments Lymphocytes # (test code = Lymphocytes 0.7 1.0-5.5 L #) [facility]anoSrlidusMQZVLGLEPK5369-37-43 22:50:00 Test Item Value Reference Range Interpretation Comments Monocytes (test code = Monocytes) 3.4 2.0-12.0 N [facility]anoUwfsgzdJABKCLJJWR0469-86-42 22:50:00 Test Item Value Reference Range Interpretation Comments Plt Morph (test code = Normal (03/14/2012 N Plt Morph) 17:50:00) [facility]anoZwkjfooUQTLIYUOWG7320-62-53 22:50:00 Test Item Value Reference Range Interpretation Comments Lymphocytes (test code = Lymphocytes) 6.0 20.0-40.0 L [facility]anoGtjhjpoWKAYPWVICY6958-22-91 22:50:00 Test Item Value Reference Range Interpretation Comments Eosinophils (test code = 0.0 See_Comment N [A utomated message] The Eosinophils) system which ge nerated this result tra nsmitted reference range : <=4.0. The reference r leo was not used to int erpret this result as normal/abnormal . [facility]anoDhgfmntZOKBBQBWHF6463-57-73 22:50:00 Test Item Value Reference Range Interpretation Comments Segs (test code = Segs) 90.4 45.0-75.0 H [facility]anoEsrcpilJVAMYPOSDN2088-97-80 22:50:00 Test Item Value Reference Range Interpretation Comments RBC Morph (test code = Normal (03/14/2012 N RBC Morph) 17:50:00) [facility] CenterCbyjvhlMKJJJDIJO3271-13-24 22:50:00 Test Item Value Reference Range Interpretation Comments S Preg (test code = S Negative *NA*(03/14/2012 Preg) 17:50:00) [facility] CenterLfbizakOPBVKYUSR8880-60-97 22:50:00 Test Item Value Reference Range Interpretation Comments Lipase Lvl (test code = Lipase Lvl) 45 73-393 L [facility] CenterDnltybmMLSPGGXRW3127-20-88 22:50:00 Test Item Value Reference Range Interpretation Comments A/G Ratio (test code = A/G Ratio) 1.2 0.7-1.6 N [facility] CenterYcymotyFYHTHHYIL5376-31-88 22:50:00 Test Item Value Reference Range Interpretation Comments Globulin (test code = Globulin) 3.8 2.0-4.0 N [facility] CenterDlxisueRHLITYDRP9062-13-69 22:50:00 Test Item Value Reference Range Interpretation Comments B/C Ratio (test code = B/C Ratio) 21 6-25 N [facility] CenterWaptfwcLBOWTGHTV6428-61-87 22:50:00 Test Item Value Reference Range Interpretation Comments AGAP (test code = AGAP) 16.8 10.0-20.0 N [facility] CenterNmloeutTNHDXUTHC4725-36-66 22:50:00 Test Item Value Reference Range Interpretation Comments Bili Total (test code = Bili Total) 1.1 0.2-1.3 N [facility] CenterZllnlysLNAAGEXOT5142-91-41 22:50:00 Test Item Value Reference Range Interpretation Comments Total Protein (test code = Total 8.2 6.4-8.4 N Protein) [facility] CenterJtgdnidWZPOOIRVV3900-11-47 22:50:00 Test Item Value Reference Range Interpretation Comments Potassium Lvl (test code = Potassium 3.8 3.5-5.1 N Lvl) [facility] CenterSygbdphIEEYSWCXZ8788-07-69 22:50:00 Test Item Value Reference Range Interpretation Comments Creatinine Lvl (test code = Creatinine 0.7 0.5-1.4 N Lvl) [facility] CenterJigawefKBQYFNYNY4114-44-92 22:50:00 Test Item Value Reference Range Interpretation Comments Sodium Lvl (test code = Sodium Lvl) 139 135-145 N [facility] CenterBqaxcmzCOANSXIPL1506-47-92 22:50:00 Test Item Value Reference Range Interpretation Comments Chloride Lvl (test code = Chloride Lvl) 99 95-109 N [facility] CenterKtzmepqZFPZMFKKS8273-42-83 22:50:00 Test Item Value Reference Range Interpretation Comments CO2 (test code = CO2) 27 24-32 N [facility] CenterTmtaqnuIRHEGVXBX2258-58-49 22:50:00 Test Item Value Reference Range Interpretation Comments Glucose Lvl (test code = Glucose Lvl) 301 70-99 H [facility] CenterHmthlgjQSRMTVPJF8716-53-51 22:50:00 Test Item Value Reference Range Interpretation Comments BUN (test code = BUN) 15 7-22 N [facility] CenterZphqtvzQHEEZBWJV9885-86-62 22:50:00 Test Item Value Reference Range Interpretation Comments ALT (test code = ALT) 24 See_Comment N [Auto mated message] The system which ge nerated this result transmit rohit reference range : <=65. The reference range was not used to interpr et this result as reji l/abnormal. [facility] CenterUytvqmuFMVXZHPGR8748-85-37 22:50:00 Test Item Value Reference Range Interpretation Comments AST (test code = AST) 20 See_Comment N [Auto mated message] The system which ge nerated this result transmit rohit reference range : <=37. The reference range was not used to interpr et this result as reji l/abnormal. [facility] CenterAfsxtfoVGFEEZNTT7020-17-50 22:50:00 Test Item Value Reference Range Interpretation Comments Alk Phos (test code = Alk Phos) 67 39-136 N [facility] CenterBlkaartCZOZRWSDI3081-62-42 22:50:00 Test Item Value Reference Range Interpretation Comments Albumin Lvl (test code = Albumin Lvl) 4.4 3.5-5.0 N [facility] CenterWsvfeynVGPYTKYIY2485-89-30 22:50:00 Test Item Value Reference Range Interpretation Comments Calcium Lvl (test code = Calcium Lvl) 9.9 8.5-10.5 N [facility]anoRoxohtwKUFCRMOBSN4017-22-53 22:50:00 Test Item Value Reference Range Interpretation Comments MPV (test code = MPV) 11.8 7.4-10.4 H [facility]anoEkgcbqpIHXNYJMQEG1801-67-27 22:50:00 Test Item Value Reference Range Interpretation Comments MCHC (test code = MCHC) 35.9 32.0-36.0 N [facility]anoPbhvhpvVAOGDKGBBK7054-36-61 22:50:00 Test Item Value Reference Range Interpretation Comments MCH (test code = MCH) 31.2 pg 27.0-31.0 H [facility]anoQgconyfMPNAAZQXHQ4631-48-29 22:50:00 Test Item Value Reference Range Interpretation Comments Platelet (test code = Platelet) 189 133-450 N [facility]anoTanjresOHYPNGGCKQ2047-26-73 22:50:00 Test Item Value Reference Range Interpretation Comments RDW (test code = RDW) 13.1 11.5-14.5 N [facility]anoGedggfaUSVCOTYIZP1028-28-39 22:50:00 Test Item Value Reference Range Interpretation Comments Hct (test code = Hct) 40.7 36.0-48.0 N [facility]anoQkbqgpvKFMQGMIWTK1985-73-72 22:50:00 Test Item Value Reference Range Interpretation Comments Hgb (test code = Hgb) 14.6 12.0-16.0 N [facility]anoUfxubznSQTXPJYGJT5377-55-32 22:50:00 Test Item Value Reference Range Interpretation Comments MCV (test code = MCV) 87.0 81.0-99.0 N [facility]anoFvvijxmWPTHKFDFST6602-85-04 22:50:00 Test Item Value Reference Range Interpretation Comments WBC (test code = WBC) 11.7 3.7-10.4 H [facility]anoDkpqmtwDBABFIHNKY3085-38-68 22:50:00 Test Item Value Reference Range Interpretation Comments RBC (test code = RBC) 4.68 4.20-5.40 N [facility]anoVswhnrzLSJJNPEDBP0640-23-67 22:50:00 Test Item Value Reference Range Interpretation Comments Basophils # (test code 0.0 See_Comment N [Aut omated message] The = Basophils #) system which generated this result tra nsmitted reference range : <=0.2. The reference r leo was not used to int erpret this result as normal/abnormal . [facility]anoMwugdheHOGVFIBOSZ3010-77-02 22:50:00 Test Item Value Reference Range Interpretation Comments Basophils (test code = 0.2 See_Comment N [Aut omated message] The Basophils) system which ge nerated this result tra nsmitted reference range : <=1.0. The reference r leo was not used to int erpret this result as normal/abnormal . [facility]anoTgizvjdJMATQWZNOC9913-08-84 22:50:00 Test Item Value Reference Range Interpretation Comments Eosinophils # (test code 0.0 See_Comment N [A utomated message] The = Eosinophils #) system whic h generated this result tra nsmitted reference range : <=0.5. The reference r leo was not used to int erpret this result as normal/abnormal . [facility]anoCkoyaliJLALLNVSMM9812-62-35 22:50:00 Test Item Value Reference Range Interpretation Comments Monocytes # (test code 0.4 See_Comment N [Aut omated message] The = Monocytes #) system which generated this result tra nsmitted reference range : <=0.8. The reference r leo was not used to int erpret this result as normal/abnormal . [facility]anoRgmbwyrEENOJZMWJX9277-38-78 22:50:00 Test Item Value Reference Range Interpretation Comments Segs-Bands # (test code = Segs-Bands #) 10.6 1.5-8.1 H [facility]anoBoukdinVLMLIFTWKV6561-45-23 22:50:00 Test Item Value Reference Range Interpretation Comments Lymphocytes # (test code = Lymphocytes 0.7 1.0-5.5 L #) [facility]anoMjvntmzYXBJEBFWHN7382-81-98 22:50:00 Test Item Value Reference Range Interpretation Comments Monocytes (test code = Monocytes) 3.4 2.0-12.0 N [facility]anoDqoowcoGLXGPAVOKA0005-97-91 22:50:00 Test Item Value Reference Range Interpretation Comments Plt Morph (test code = Normal (03/14/2012 N Plt Morph) 17:50:00) [facility]anoTnwptmuHASWNKVKEP7612-11-11 22:50:00 Test Item Value Reference Range Interpretation Comments Lymphocytes (test code = Lymphocytes) 6.0 20.0-40.0 L [facility]anoNgtatbkEDJCEMTINO5111-50-61 22:50:00 Test Item Value Reference Range Interpretation Comments Eosinophils (test code = 0.0 See_Comment N [A utomated message] The Eosinophils) system which ge nerated this result tra nsmitted reference range : <=4.0. The reference r leo was not used to int erpret this result as normal/abnormal . [facility]anoXgsvhjlLVODHEIHLZ1410-73-26 22:50:00 Test Item Value Reference Range Interpretation Comments Segs (test code = Segs) 90.4 45.0-75.0 H [facility]anoEfrbfxfPJZYZEHCLK0440-46-42 22:50:00 Test Item Value Reference Range Interpretation Comments RBC Morph (test code = Normal (03/14/2012 N RBC Morph) 17:50:00) [facility] CenterWwxwppgJOSPOVTQT8639-43-30 22:50:00 Test Item Value Reference Range Interpretation Comments S Preg (test code = S Negative *NA*(03/14/2012 Preg) 17:50:00) [facility] CenterIrohutdEAJMNZSWS3213-56-83 22:50:00 Test Item Value Reference Range Interpretation Comments Lipase Lvl (test code = Lipase Lvl) 45 73-393 L [facility] CenterOiwjpzmQCASYWPNE0464-61-56 22:50:00 Test Item Value Reference Range Interpretation Comments A/G Ratio (test code = A/G Ratio) 1.2 0.7-1.6 N [facility] CenterNdkgvlwGYANJUSYV7709-43-08 22:50:00 Test Item Value Reference Range Interpretation Comments Globulin (test code = Globulin) 3.8 2.0-4.0 N [facility] CenterOaqrrmnXKSZOEMRY8856-91-87 22:50:00 Test Item Value Reference Range Interpretation Comments B/C Ratio (test code = B/C Ratio) 21 6-25 N [facility] CenterPvhvyrbUNYRALPDU3099-86-63 22:50:00 Test Item Value Reference Range Interpretation Comments AGAP (test code = AGAP) 16.8 10.0-20.0 N [facility] CenterXmjbrifHVMZRVTKS5266-38-89 22:50:00 Test Item Value Reference Range Interpretation Comments Bili Total (test code = Bili Total) 1.1 0.2-1.3 N [facility] CenterUzrpovtYSFIYVEIX1016-71-32 22:50:00 Test Item Value Reference Range Interpretation Comments Total Protein (test code = Total 8.2 6.4-8.4 N Protein) [facility] CenterMgabperKYYRQORVQ1876-19-79 22:50:00 Test Item Value Reference Range Interpretation Comments Potassium Lvl (test code = Potassium 3.8 3.5-5.1 N Lvl) [facility] CenterAwqsxygONKTLIRXX6822-60-30 22:50:00 Test Item Value Reference Range Interpretation Comments Creatinine Lvl (test code = Creatinine 0.7 0.5-1.4 N Lvl) [facility] CenterTxjorzrTUCSTNPFV4213-24-52 22:50:00 Test Item Value Reference Range Interpretation Comments Sodium Lvl (test code = Sodium Lvl) 139 135-145 N [facility] CenterDfaduosCTATUNTUW8049-86-13 22:50:00 Test Item Value Reference Range Interpretation Comments Chloride Lvl (test code = Chloride Lvl) 99 95-109 N [facility] CenterZkwcmqbSTGTQDOPT4747-96-68 22:50:00 Test Item Value Reference Range Interpretation Comments CO2 (test code = CO2) 27 24-32 N [facility] CenterQvcnkdwHKCPPSHZO0310-78-86 22:50:00 Test Item Value Reference Range Interpretation Comments Glucose Lvl (test code = Glucose Lvl) 301 70-99 H [facility] CenterDiyijywCFDNMNDGL0321-45-37 22:50:00 Test Item Value Reference Range Interpretation Comments BUN (test code = BUN) 15 7-22 N [facility] CenterXivkyloIPSXFAMTY5680-15-76 22:50:00 Test Item Value Reference Range Interpretation Comments ALT (test code = ALT) 24 See_Comment N [Auto mated message] The system which ge nerated this result transmit rohit reference range : <=65. The reference range was not used to interpr et this result as reji l/abnormal. [facility] CenterGllppluTCLPJNEYW2712-59-39 22:50:00 Test Item Value Reference Range Interpretation Comments AST (test code = AST) 20 See_Comment N [Auto mated message] The system which ge nerated this result transmit rohit reference range : <=37. The reference range was not used to interpr et this result as reji l/abnormal. [facility] CenterBopvnsvSUKKMMZDX6154-26-82 22:50:00 Test Item Value Reference Range Interpretation Comments Alk Phos (test code = Alk Phos) 67 39-136 N [facility] CenterNbrfxdoRVNVVLAHQ9569-60-71 22:50:00 Test Item Value Reference Range Interpretation Comments Albumin Lvl (test code = Albumin Lvl) 4.4 3.5-5.0 N [facility] CenterMdspxazGQVTJVYNL4269-77-36 22:50:00 Test Item Value Reference Range Interpretation Comments Calcium Lvl (test code = Calcium Lvl) 9.9 8.5-10.5 N [facility]anoHonjhteHYXZZLAFYP8377-35-21 22:50:00 Test Item Value Reference Range Interpretation Comments MPV (test code = MPV) 11.8 7.4-10.4 H [facility] StationAktmqftFRRPKBYYZI9524-79-36 22:50:00 Test Item Value Reference Range Interpretation Comments MCHC (test code = MCHC) 35.9 32.0-36.0 N [facility]anoVxapqkkDUDSROOTCP9561-25-66 22:50:00 Test Item Value Reference Range Interpretation Comments MCH (test code = MCH) 31.2 pg 27.0-31.0 H [facility]anoUdgpwwvLZSTMBTPJE0097-70-28 22:50:00 Test Item Value Reference Range Interpretation Comments Platelet (test code = Platelet) 189 133-450 N [facility]anoWfjzmvzVDOJGOYBWC0274-02-68 22:50:00 Test Item Value Reference Range Interpretation Comments RDW (test code = RDW) 13.1 11.5-14.5 N [facility]anoUbabtsuDNGRNBFPMA0996-85-40 22:50:00 Test Item Value Reference Range Interpretation Comments Hct (test code = Hct) 40.7 36.0-48.0 N [facility]anoFjrtxtlJWRWISLNPJ2959-43-40 22:50:00 Test Item Value Reference Range Interpretation Comments Hgb (test code = Hgb) 14.6 12.0-16.0 N [facility]anoMioxrugCZVFKBEPHX5426-76-98 22:50:00 Test Item Value Reference Range Interpretation Comments MCV (test code = MCV) 87.0 81.0-99.0 N [facility]anoJhmcvqyJBZBCDTTKB2135-68-61 22:50:00 Test Item Value Reference Range Interpretation Comments WBC (test code = WBC) 11.7 3.7-10.4 H [facility]anoIzflzgfLIGKHQQBTU3040-60-73 22:50:00 Test Item Value Reference Range Interpretation Comments RBC (test code = RBC) 4.68 4.20-5.40 N [facility]a[id number] 22:50:00 Test Item Value Reference Range Interpretation Comments Basophils # (test code 0.0 See_Comment N [Aut omated message] The = Basophils #) system which generated this result tra nsmitted reference range : <=0.2. The reference r leo was not used to int erpret this result as normal/abnormal . [facility]anoZfnanrwZCOTKGXIPF9233-39-42 22:50:00 Test Item Value Reference Range Interpretation Comments Basophils (test code = 0.2 See_Comment N [Aut omated message] The Basophils) system which ge nerated this result tra nsmitted reference range : <=1.0. The reference r leo was not used to int erpret this result as normal/abnormal . [facility]anoEayejiySXMFOPYKVY7228-72-05 22:50:00 Test Item Value Reference Range Interpretation Comments Eosinophils # (test code 0.0 See_Comment N [A utomated message] The = Eosinophils #) system [facility] h generated this result tra nsmitted reference range : <=0.5. The reference r leo was not used to int erpret this result as normal/abnormal . [facility]anoAmpemsgBHKWYKIJFO3231-72-32 22:50:00 Test Item Value Reference Range Interpretation Comments Monocytes # (test code 0.4 See_Comment N [Aut omated message] The = Monocytes #) system which generated this result tra nsmitted reference range : <=0.8. The reference r leo was not used to int erpret this result as normal/abnormal . [facility]anoByblhgoUBUGNDDPZI6588-78-02 22:50:00 Test Item Value Reference Range Interpretation Comments Segs-Bands # (test code = Segs-Bands #) 10.6 1.5-8.1 H [facility]anoFysilyhGFEOGVHERN4957-06-07 22:50:00 Test Item Value Reference Range Interpretation Comments Lymphocytes # (test code = Lymphocytes 0.7 1.0-5.5 L #) [facility]anoDxkgxlhUBKFCXQFZU7954-07-88 22:50:00 Test Item Value Reference Range Interpretation Comments Monocytes (test code = Monocytes) 3.4 2.0-12.0 N [facility]anoLrhqlsqVJDCNTSHGD1771-75-62 22:50:00 Test Item Value Reference Range Interpretation Comments Plt Morph (test code = Normal (03/14/2012 N Plt Morph) 17:50:00) [facility]anoHncrbkpPWTGADYMPK0692-76-68 22:50:00 Test Item Value Reference Range Interpretation Comments Lymphocytes (test code = Lymphocytes) 6.0 20.0-40.0 L [facility]anoNymgrxcKDRIQHPKXH7853-52-98 22:50:00 Test Item Value Reference Range Interpretation Comments Eosinophils (test code = 0.0 See_Comment N [A utomated message] The Eosinophils) system which ge nerated this result tra nsmitted reference range : <=4.0. The reference r leo was not used to int erpret this result as normal/abnormal . [facility]anoHuurfsrUUHAWOVWES1276-90-18 22:50:00 Test Item Value Reference Range Interpretation Comments Segs (test code = Segs) 90.4 45.0-75.0 H [facility]anoYaoxsfnKRKAAWBCMY8518-39-21 22:50:00 Test Item Value Reference Range Interpretation Comments RBC Morph (test code = Normal (03/14/2012 N RBC Morph) 17:50:00) [facility] GLUCOSE [id number] 23:43:00 Test Item Value Reference Range Interpretation Comments Gluc POC Lifscn (test code = Gluc POC 167 70-99 H Lifscn) [facility] GLUCOSE [id number] 23:43:00 Test Item Value Reference Range Interpretation Comments Comment1 (test code = Comment1) Notify RN/ [facility] GLUCOSE [id number] 23:43:00 Test Item Value Reference Range Interpretation Comments Comment2 (test code = Comment2) [facility] Scale [facility] [id number] 23:43:00 Test Item Value Reference Range Interpretation Comments Gluc POC Lifscn (test code = Gluc POC 167 70-99 H Lifscn) [facility] GLUCOSE [id number] 23:43:00 Test Item Value Reference Range Interpretation Comments Comment1 (test code = Comment1) Notify TABATHA/ [facility] GLUCOSE [id number] 23:43:00 Test Item Value Reference Range Interpretation Comments Comment2 (test code = Comment2) Sliding Scale [facility] GLUCOSE [id number] 23:43:00 Test Item Value Reference Range Interpretation Comments Gluc POC Lifscn (test code = Gluc POC 167 70-99 H Lifscn) [facility] GLUCOSE [id number] 23:43:00 Test Item Value Reference Range Interpretation Comments Comment1 (test code = Comment1) Notify TABATHA/ [facility] GLUCOSE [id number] 23:43:00 Test Item Value Reference Range Interpretation Comments Comment2 (test code = Comment2) Sliding Scale [facility] GLUCOSE [id number] 23:43:00 Test Item Value Reference Range Interpretation Comments Gluc POC Lifscn (test code = Gluc POC 167 70-99 H Lifscn) [facility] GLUCOSE [id number] 23:43:00 Test Item Value Reference Range Interpretation Comments Comment1 (test code = Comment1) Notify RN/ [facility] GLUCOSE [id number] 23:43:00 Test Item Value Reference Range Interpretation Comments Comment2 (test code = Comment2) Sliding Scale [facility] GLUCOSE [id number] 23:43:00 Test Item Value Reference Range Interpretation Comments Gluc POC Lifscn (test code = Gluc POC 167 70-99 H Lifscn) [facility] GLU[facility]SE [id number] 23:43:00 Test Item Value Reference Range Interpretation Comments Comment1 (test code = Comment1) Notify RN/ [facility] GLUCOSE [id number] 23:43:00 Test Item Value Reference Range Interpretation Comments Comment2 (test code = Comment2) Sliding Scale [facility] GLUCOSE [id number] 17:40:00 Test Item Value Reference Range Interpretation Comments Gluc POC Lifscn (test code = Gluc POC 189 70-99 H Lifscn) [facility] GLUCOSE [id number] 17:40:00 Test Item Value Reference Range Interpretation Comments Comment1 (test code = Comment1) Notify RN/ [facility] GLUCOSE [id number] 17:40:00 Test Item Value Reference Range Interpretation Comments Comment2 (test code = Comment2) Sliding Scale [facility] GLUCOSE [id number] 17:40:00 Test Item Value Reference Range Interpretation Comments Gluc POC Lifscn (test code = Gluc POC 189 70-99 H Lifscn) [facility] GLUCOSE [id number] 17:40:00 Test Item Value Reference Range Interpretation Comments Comment1 (test code = Comment1) Notify RN/ [facility] GLUCOSE [id number] 17:40:00 Test Item Value Reference Range Interpretation Comments Comment2 (test code = Comment2) Sliding Scale [facility] GLUCOSE [id number] 17:40:00 Test Item Value Reference Range Interpretation Comments Gluc POC Lifscn (test code = Gluc POC 189 70-99 H Lifscn) [facility] GLUCOSE [id number] 17:40:00 Test Item Value Reference Range Interpretation Comments Comment1 (test code = Comment1) Notify RN/ [facility] GLUCOSE [id number] 17:40:00 Test Item Value Reference Range Interpretation Comments Comment2 (test code = Comment2) Sliding Scale [facility] GLUCOSE [id number] 17:40:00 Test Item Value Reference Range Interpretation Comments Gluc POC Lifscn (test code = Gluc POC 189 70-99 H Lifscn) [facility] GLU[facility]SE [id number] 17:40:00 Test Item Value Reference Range Interpretation Comments Comment1 (test code = Comment1) [facility] RN/ [facility] GL[facility] [id number] 17:40:00 Test Item Value Reference Range Interpretation Comments Comment2 (test code = Comment2) Sliding Scale [facility] GLU[facility]SE [id number] 17:40:00 Test Item Value Reference Range Interpretation Comments Gluc POC Lifscn (test code = Gluc POC 189 70-99 H Lifscn) [facility] GLUCOSE [id number] 17:40:00 Test Item Value Reference Range Interpretation Comments Comment1 (test code = Comment1) Notify RN/ [facility] GLUCOSE [id number] 17:40:00 Test Item Value Reference Range Interpretation Comments Comment2 (test code = Comment2) Sliding Scale [facility] GLUCOSE [id number] 13:34:00 Test Item Value Reference Range Interpretation Comments Comment2 (test code = Comment2) Sliding Scale [facility] GLU[facility]SE [id number] 13:34:00 Test Item Value Reference Range Interpretation Comments Gluc POC Lifscn (test code = Gluc POC 110 70-99 H Lifscn) [facility] GLU[facility]SE [id number] 13:34:00 Test Item Value Reference Range Interpretation Comments Comment1 (test code = Comment1) Notify TABATHA/ [facility] GLUCOSE [id number] 13:34:00 Test Item Value Reference Range Interpretation Comments Comment2 (test code = Comment2) Sliding Scale [facility] GLU[facility] [id number] 13:34:00 Test Item Value Reference Range Interpretation Comments Gluc POC Lifscn (test code = Gluc POC 110 70-99 H Lifscn) [facility] GLU[facility]SE [id number] 13:34:00 Test Item Value Reference Range Interpretation Comments Comment1 (test code = Comment1) Notify TABATHA/ [facility] GLUCOSE [id number] 13:34:00 Test Item Value Reference Range Interpretation Comments Comment2 (test code = Comment2) Sliding Scale [facility] GLU[facility]SE [id number] 13:34:00 Test Item Value Reference Range Interpretation Comments Gluc POC Lifscn (test code = Gluc POC 110 70-99 H Lifscn) [facility] GLUCOSE [id number] 13:34:00 Test Item Value Reference Range Interpretation Comments Comment1 (test code = Comment1) Notify RN/ [facility] GLUCOSE [id number] 13:34:00 Test Item Value Reference Range Interpretation Comments Comment2 (test code = Comment2) Sliding Scale [facility] GLUCOSE [id number] 13:34:00 Test Item Value Reference Range Interpretation Comments Gluc POC Lifscn (test code = Gluc POC 110 70-99 H Lifscn) [facility] GLUCOSE [id number] 13:34:00 Test Item Value Reference Range Interpretation Comments Comment1 (test code = Comment1) Notify RN/ [facility] GLUCOSE [id number] 13:34:00 Test Item Value Reference Range Interpretation Comments Comment2 (test code = Comment2) Sliding Scale [facility] GLUCOSE [id number] 13:34:00 Test Item Value Reference Range Interpretation Comments Gluc POC Lifscn (test code = Gluc POC 110 70-99 H Lifscn) [facility] GLUCOSE [id number] 13:34:00 Test Item Value Reference Range Interpretation Comments Comment1 (test code = Comment1) [facility]ATHA[facility]hlwUJTSIPFYE7016-03-58 00:00:00 Test Item Value Reference Range Interpretation Comments U Preg (test code = U Negative (11/28/2011 N Preg) 19:00:00) [facility] HospitalKsaysrlGPFOUQOLBH2465-89-16 00:00:00 Test Item Value Reference Range Interpretation Comments Micro? (test code = Performed (11/28/2011 N Micro?) 19:00:00) [facility]YvmwjwvPTNQSLZZXZ8726-63-11 00:00:00 Test Item Value Reference Range Interpretation Comments UA Sq Epi (test code Occasional /LPF N = UA Sq Epi) (11/28/2011 19:00:00) [facility] HospitalLdxlfrgGFZGWBHYJJ6137-41-27 00:00:00 Test Item Value Reference Range Interpretation Comments UA RBC (test None Seen See_Comment N [Automated mes pastor] code = UA RBC) (11/28/2011 The system wh ich 19:00:00) generated this result transmitted ref erence range: <=2. The reference range was not used to int erpret this result as normal/abnormal . [id number] 00:00:00 Test Item Value Reference Range Interpretation Comments UA WBC (test code Occasional See_Comment [Automate d message] The = UA WBC) system which ge nerated this result tra nsmitted reference range : <=5. The reference range was not used to interpr et this result as normal/abnormal . [facility] HospitalDydecxoXLRCZJQNHC9820-10-23 00:00:00 Test Item Value Reference Range Interpretation Comments UA Protein (test code Negative mg/dL N = UA Protein) (11/28/2011 19:00:00) [facility]oundSpkcpmaFYNXDNICTE1385-91-92 00:00:00 Test Item Value Reference Range Interpretation Comments UA pH (test code = UA pH) 7.0 1 5.0-8.0 N [facility] NorthwestRbcokenUCHWULWJUC1491-40-60 00:00:00 Test Item Value Reference Range Interpretation Comments UA Spec Grav (test code = UA Spec 1.020 1 N Grav) [facility]oundJfrbdidOTJQBBTZCA6628-05-00 00:00:00 Test Item Value Reference Range Interpretation Comments UA Turbidity (test code = Clear (11/28/2011 N UA Turbidity) 19:00:00) [facility]oundFxyddwoUFWSSSFOKM0283-03-64 00:00:00 Test Item Value Reference Range Interpretation Comments UA Color (test code = Yellow *NA*(11/28/2011 UA Color) 19:00:00) [facility] HospitalTansxvpNMNZZXCVPR5726-36-69 00:00:00 Test Item Value Reference Range Interpretation Comments UA Urobilinogen (test code = UA 0.2 0.1-1.0 N Urobilinogen) [facility] HospitalIffphjxLIMLVXWSJH2074-64-84 00:00:00 Test Item Value Reference Range Interpretation Comments UA Blood (test code = Negative (11/28/2011 N UA Blood) 19:00:00) [facility] HospitalJjsjowqXPGCRJYGST9028-52-12 00:00:00 Test Item Value Reference Range Interpretation Comments UA Bili (test code = Negative *NA*(11/28/2011 UA Bili) 19:00:00) [facility] HospitalWwvjdzsATEUUWALRW4946-61-33 00:00:00 Test Item Value Reference Range Interpretation Comments UA Ketones (test code = >=80 mg/dL A UA Ketones) *ABN*(11/28/2011 19:00:00) [facility]oundJimyzpjJKYHYMPZUQ2075-76-04 00:00:00 Test Item Value Reference Range Interpretation Comments UA Glucose (test code = >=1000 mg/dL A UA Glucose) *ABN*(11/28/2011 19:00:00) [facility]oundGsfiuklRUZTUJUPGH2169-86-05 00:00:00 Test Item Value Reference Range Interpretation Comments UA Nitrite (test code Negative (11/28/2011 N = UA Nitrite) 19:00:00) [facility] HospitalDdhqwksCYTJNGJCHJ3293-97-31 00:00:00 Test Item Value Reference Range Interpretation Comments UA Leuk Est (test Negative (11/28/2011 N code = UA Leuk Est) 19:00:00) [facility] HospitalYovpsoaRJQQLRBTG7180-41-05 00:00:00 Test Item Value Reference Range Interpretation Comments U Preg (test code = U Negative (11/28/2011 N Preg) 19:00:00) [facility] MoundDglczdiCACLYJZQLS3846-39-21 00:00:00 Test Item Value Reference Range Interpretation Comments Micro? (test code = Performed (11/28/2011 N Micro?) 19:00:00) [facility]oundAjtmlxlTZGQCUEACI2380-41-04 00:00:00 Test Item Value Reference Range Interpretation Comments UA Sq Epi (test code Occasional /LPF N = UA Sq Epi) (11/28/2011 19:00:00) [facility]oundBfjdhwtCQEJFRNPGH9578-73-42 00:00:00 Test Item Value Reference Range Interpretation Comments UA RBC (test None Seen See_Comment N [Automated mes pastor] code = UA RBC) (11/28/2011 The system wh ich 19:00:00) generated this result transmitted ref erence range: <=2. The reference range was not used to int erpret this result as normal/abnormal . [facility] MoundLbeoftnJPQVSGNRGX5219-05-79 00:00:00 Test Item Value Reference Range Interpretation Comments UA WBC (test code Occasional See_Comment [Automate d message] The = UA WBC) system which ge nerated this result tra nsmitted reference range : <=5. The reference range was not used to interpr et this result as normal/abnormal . [facility] NorthwestXtdrsszMHLRQRRQQB5554-15-53 00:00:00 Test Item Value Reference Range Interpretation Comments UA Protein (test code Negative mg/dL N = UA Protein) (11/28/2011 19:00:00) [facility] NorthwestOjzadrmVZOCMTBGJO3102-03-45 00:00:00 Test Item Value Reference Range Interpretation Comments UA pH (test code = UA pH) 7.0 1 5.0-8.0 N [facility]oundEsilgjbFKKPLEPKVA6115-05-52 00:00:00 Test Item Value Reference Range Interpretation Comments UA Spec Grav (test code = UA Spec 1.020 1 N Grav) [facility] NorthwestWuqlllvCZODFUMQKP1114-68-86 00:00:00 Test Item Value Reference Range Interpretation Comments UA Turbidity (test code = Clear (11/28/2011 N UA Turbidity) 19:00:00) [facility] NorthwestCgoofypKWKBCGQOSX2301-54-74 00:00:00 Test Item Value Reference Range Interpretation Comments UA Color (test code = Yellow *NA*(11/28/2011 UA Color) 19:00:00) [facility] NorthwestYiylhlgSWVZEMNLZN3660-29-67 00:00:00 Test Item Value Reference Range Interpretation Comments UA Urobilinogen (test code = UA 0.2 0.1-1.0 N Urobilinogen) [facility] NorthwestRkqdislEZJNTXPZJA1090-06-68 00:00:00 Test Item Value Reference Range Interpretation Comments UA Blood (test code = Negative (11/28/2011 N UA Blood) 19:00:00) [facility]oundLihkktcNQMYSSZORM0899-87-87 00:00:00 Test Item Value Reference Range Interpretation Comments UA Bili (test code = Negative *NA*(11/28/2011 UA Bili) 19:00:00) [facility]oundGvzbgeoHDTXLCBQDW0223-31-50 00:00:00 Test Item Value Reference Range Interpretation Comments UA Ketones (test code = >=80 mg/dL A UA Ketones) *ABN*(11/28/2011 19:00:00) [facility]oundLlbjzawNTSVPQDKPT3596-71-81 00:00:00 Test Item Value Reference Range Interpretation Comments UA Glucose (test code = >=1000 mg/dL A UA Glucose) *ABN*(11/28/2011 19:00:00) [facility] StationFpniomtPRJSGXOWNJ5404-49-07 00:00:00 Test Item Value Reference Range Interpretation Comments UA Nitrite (test code Negative (11/28/2011 N = UA Nitrite) 19:00:00) [facility] StationKoqvhzeVIGHTRMTQS6604-30-01 00:00:00 Test Item Value Reference Range Interpretation Comments UA Leuk Est (test Negative (11/28/2011 N code = UA Leuk Est) 19:00:00) [facility] StationJgxkiwfMRPZWFPMO0134-69-74 00:00:00 Test Item Value Reference Range Interpretation Comments U Preg (test code = U Negative (11/28/2011 N Preg) 19:00:00) [facility] StationNcqnopbFAUSYRKDHE7163-84-21 00:00:00 Test Item Value Reference Range Interpretation Comments Micro? (test code = Performed (11/28/2011 N Micro?) 19:00:00) [facility] HospitalZwkewpxRQQXMAFXTF8137-19-68 00:00:00 Test Item Value Reference Range Interpretation Comments UA Sq Epi (test code Occasional /LPF N = UA Sq Epi) (11/28/2011 19:00:00) [facility] HospitalRdfvovfRNIDXXISAE7792-26-57 00:00:00 Test Item Value Reference Range Interpretation Comments UA RBC (test None Seen See_Comment N [Automated mes pastor] code = UA RBC) (11/28/2011 The system ich 19:00:00) generated this result transmitted ref erence range: <=2. The reference range was not used to int erpret this result as normal/abnormal . [facility] StationKshrhhwADPNUNNNTT2787-12-82 00:00:00 Test Item Value Reference Range Interpretation Comments UA WBC (test code Occasional See_Comment [Automate d message] The = UA WBC) system which ge nerated this result tra nsmitted reference range : <=5. The reference range was not used to interpr et this result as normal/abnormal . [facility] StationRknndbvOLLXFZQPEP5393-47-12 00:00:00 Test Item Value Reference Range Interpretation Comments UA Protein (test code Negative mg/dL N = UA Protein) (11/28/2011 19:00:00) [facility] StationTwstfegHMUGZOIQAF0362-40-64 00:00:00 Test Item Value Reference Range Interpretation Comments UA pH (test code = UA pH) 7.0 1 5.0-8.0 N [facility]oundXevamnlVQYCZVWFMB3318-21-67 00:00:00 Test Item Value Reference Range Interpretation Comments UA Spec Grav (test code = UA Spec 1.020 1 N Grav) [facility] NorthwestMlxxktpYDLYDRSRCG7478-29-87 00:00:00 Test Item Value Reference Range Interpretation Comments UA Turbidity (test code = Clear (11/28/2011 N UA Turbidity) 19:00:00) [facility] NorthwestWensmauGPXBIEXVXG9947-36-03 00:00:00 Test Item Value Reference Range Interpretation Comments UA Color (test code = Yellow *NA*(11/28/2011 UA Color) 19:00:00) [facility] NorthwestFqcwujsMGQNTCAGRU5105-09-05 00:00:00 Test Item Value Reference Range Interpretation Comments UA Urobilinogen (test code = UA 0.2 0.1-1.0 N Urobilinogen) [facility] NorthwestDhzjrxeOJCPNGJLIC3966-97-55 00:00:00 Test Item Value Reference Range Interpretation Comments UA Blood (test code = Negative (11/28/2011 N UA Blood) 19:00:00) [facility] NorthwestJvdntahTZBTQKCSUY2369-50-31 00:00:00 Test Item Value Reference Range Interpretation Comments UA Bili (test code = Negative *NA*(11/28/2011 UA Bili) 19:00:00) [facility] NorthwestSzqbydaKRCVSFVOSY8335-84-41 00:00:00 Test Item Value Reference Range Interpretation Comments UA Ketones (test code = >=80 mg/dL A UA Ketones) *ABN*(11/28/2011 19:00:00) [facility] NorthwestMogzrhjRUPDXFBBAU4664-76-93 00:00:00 Test Item Value Reference Range Interpretation Comments UA Glucose (test code = >=1000 mg/dL A UA Glucose) *ABN*(11/28/2011 19:00:00) [facility]oundEkwvzglTGFTKTFSXM3812-01-61 00:00:00 Test Item Value Reference Range Interpretation Comments UA Nitrite (test code Negative (11/28/2011 N = UA Nitrite) 19:00:00) [facility] NorthwestAxiqyysLGVQVHJJGO8339-17-68 00:00:00 Test Item Value Reference Range Interpretation Comments UA Leuk Est (test Negative (11/28/2011 N code = UA Leuk Est) 19:00:00) [facility]SqnkdyqRXTZNKVLY1505-08-67 00:00:00 Test Item Value Reference Range Interpretation Comments U Preg (test code = U Negative (11/28/2011 N Preg) 19:00:00) [facility] HospitalPqdvnxyYPNQOOUGHO0920-82-65 00:00:00 Test Item Value Reference Range Interpretation Comments Micro? (test code = Performed (11/28/2011 N Micro?) 19:00:00) [facility] HospitalIglqeopINDWPTGNOJ1115-95-99 00:00:00 Test Item Value Reference Range Interpretation Comments UA Sq Epi (test code Occasional /LPF N = UA Sq Epi) (11/28/2011 19:00:00) [facility] HospitalFsinquyPGJBLFNABJ5947-16-54 00:00:00 Test Item Value Reference Range Interpretation Comments UA RBC (test None Seen See_Comment N [Automated mes pastor] code = UA RBC) (11/28/2011 The system wh ich 19:00:00) generated this result transmitted ref erence range: <=2. The reference range was not used to int erpret this result as normal/abnormal . [facility]ylshkaQFLIOSJDIJ0404-[facility]:00:00 Test Item Value Reference Range Interpretation Comments UA WBC (test code Occasional See_Comment [Automate d message] The = UA WBC) system which ge nerated this result tra nsmitted reference range : <=5. The reference range was not used to interpr et this result as normal/abnormal . [facility]DprjvchRTUCHLQFRU4864-75-44 00:00:00 Test Item Value Reference Range Interpretation Comments UA Protein (test code Negative mg/dL N = UA Protein) (11/28/2011 19:00:00) [facility]LgbaxsoXGXTICQCMF9884-58-76 00:00:00 Test Item Value Reference Range Interpretation Comments UA pH (test code = UA pH) 7.0 1 5.0-8.0 N [facility] StationPjljzmbVOTBSUBYLC8740-06-42 00:00:00 Test Item Value Reference Range Interpretation Comments UA Spec Grav (test code = UA Spec 1.020 1 N Grav) [facility] HospitalRvplsnwBDQXMQMPTG1116-59-12 00:00:00 Test Item Value Reference Range Interpretation Comments UA Turbidity (test code = Clear (11/28/2011 N UA Turbidity) 19:00:00) [facility] HospitalVjebhghRDIVMCXSAT2715-21-75 00:00:00 Test Item Value Reference Range Interpretation Comments UA Color (test code = Yellow *NA*(11/28/2011 UA Color) 19:00:00) [facility]QfstjsqUHAGJMCIYM9444-70-03 00:00:00 Test Item Value Reference Range Interpretation Comments UA Urobilinogen (test code = UA 0.2 0.1-1.0 N Urobilinogen) [facility]oundGlgwurlDBOBEUMXKC3911-93-86 00:00:00 Test Item Value Reference Range Interpretation Comments UA Blood (test code = Negative (11/28/2011 N UA Blood) 19:00:00) [facility] HospitalGjmlzmiXZQVGWEBYO8407-32-47 00:00:00 Test Item Value Reference Range Interpretation Comments UA Bili (test code = Negative *NA*(11/28/2011 UA Bili) 19:00:00) [facility] [place]oundSmvygyzPDSASQZODL5668-44-41 00:00:00 Test Item Value Reference Range Interpretation Comments UA Ketones (test code = >=80 mg/dL A UA Ketones) *ABN*(11/28/2011 19:00:00) [facility] HospitalDqlwhvdWKGABXAWIB9504-77-66 00:00:00 Test Item Value Reference Range Interpretation Comments UA Glucose (test code = >=1000 mg/dL A UA Glucose) *ABN*(11/28/2011 19:00:00) [facility]oundGynjtpgCJRBCLMYTA0449-41-14 00:00:00 Test Item Value Reference Range Interpretation Comments UA Nitrite (test code Negative (11/28/2011 N = UA Nitrite) 19:00:00) [facility] HospitalYvettrkEWNLQYZPVD4056-23-80 00:00:00 Test Item Value Reference Range Interpretation Comments UA Leuk Est (test Negative (11/28/2011 N code = UA Leuk Est) 19:00:00) [facility] HospitalBluaywkNNOXJOPWL6272-45-31 00:00:00 Test Item Value Reference Range Interpretation Comments U Preg (test code = U Negative (11/28/2011 N Preg) 19:00:00) [facility] [place]oundXudombzEQECRSVFFZ1694-74-07 00:00:00 Test Item Value Reference Range Interpretation Comments Micro? (test code = Performed (11/28/2011 N Micro?) 19:00:00) [facility]oundYqkyiftQEJLBYOMQK0668-22-70 00:00:00 Test Item Value Reference Range Interpretation Comments UA Sq Epi (test code Occasional /LPF N = UA Sq Epi) (11/28/2011 19:00:00) [facility]oundNyjmyheFDXYTXPEQJ3462-01-10 00:00:00 Test Item Value Reference Range Interpretation Comments UA RBC (test None Seen See_Comment N [Automated mes pastor] code = UA RBC) (11/28/2011 The system ich 19:00:00) generated this result transmitted ref erence range: <=2. The reference range was not used to int erpret this result as normal/abnormal . [facility] MoundIbrofooWRCSHNAPOZ6666-96-07 00:00:00 Test Item Value Reference Range Interpretation Comments UA WBC (test code Occasional See_Comment [Automate d message] The = UA WBC) system which ge nerated this result tra nsmitted reference range : <=5. The reference range was not used to interpr et this result as normal/abnormal . [facility] HospitalKhlzcscJKVBMWGJMK3097-85-63 00:00:00 Test Item Value Reference Range Interpretation Comments UA Protein (test code Negative mg/dL N = UA Protein) (11/28/2011 19:00:00) [facility] HospitalPoiydydLGHTLZNTMS7019-05-47 00:00:00 Test Item Value Reference Range Interpretation Comments UA pH (test code = UA pH) 7.0 1 5.0-8.0 N [facility]oundPygsmucRRZSKQKPLY6863-10-21 00:00:00 Test Item Value Reference Range Interpretation Comments UA Spec Grav (test code = UA Spec 1.020 1 N Grav) [facility] [place]oundXneibzrQXZXNEMXCL0724-52-37 00:00:00 Test Item Value Reference Range Interpretation Comments UA Turbidity (test code = Clear (11/28/2011 N UA Turbidity) 19:00:00) [facility] HospitalKmvzxjkNDAXEPGHFU7312-63-54 00:00:00 Test Item Value Reference Range Interpretation Comments UA Color (test code = Yellow *NA*(11/28/2011 UA Color) 19:00:00) [facility]oundDjgsaisHPNVIEDCNJ5322-03-54 00:00:00 Test Item Value Reference Range Interpretation Comments UA Urobilinogen (test code = UA 0.2 0.1-1.0 N Urobilinogen) [facility] HospitalXkkjzpvKJJKQCNDHZ6394-80-14 00:00:00 Test Item Value Reference Range Interpretation Comments UA Blood (test code = Negative (11/28/2011 N UA Blood) 19:00:00) [facility]oundEunpsibQGMXXKFJCU0976-45-43 00:00:00 Test Item Value Reference Range Interpretation Comments UA Bili (test code = Negative *NA*(11/28/2011 UA Bili) 19:00:00) [facility] [place]oundXftpkgoWNKZWFPQRX2335-61-02 00:00:00 Test Item Value Reference Range Interpretation Comments UA Ketones (test code = >=80 mg/dL A UA Ketones) *ABN*(11/28/2011 19:00:00) [facility]oundPcazsfpVJKXAJPIZN9305-70-77 00:00:00 Test Item Value Reference Range Interpretation Comments UA Glucose (test code = >=1000 mg/dL A UA Glucose) *ABN*(11/28/2011 19:00:00) [facility]PlnfsggPCOBPQQBYC5432-04-01 00:00:00 Test Item Value Reference Range Interpretation Comments UA Nitrite (test code Negative (11/28/2011 N = UA Nitrite) 19:00:00) [facility]oundUonqtuoIIZDVFDEJR5440-89-54 00:00:00 Test Item Value Reference Range Interpretation Comments UA Leuk Est (test Negative (11/28/2011 N code = UA Leuk Est) 19:00:00) [facility] CenterIevlbdwVNIBRYDAQ3179-16-35 20:41:00 Test Item Value Reference Range Interpretation Comments pO2 Roberth (test code = pO2 Roberth) 60 20-49 H [facility] CenterFxlqwwwSEJBSQTXB4677-46-13 20:41:00 Test Item Value Reference Range Interpretation Comments pCO2 Roberth (test code = pCO2 Roberth) 41 38-52 N [facility] CenterYctzjtzWUVUTIVWK3536-71-87 20:41:00 Test Item Value Reference Range Interpretation Comments pH Roberth (test code = pH Roberth) 7.45 7.28-7.42 H [facility] CenterFrtujkhYPSFCOUAD9398-65-51 20:41:00 Test Item Value Reference Range Interpretation Comments Temp Roberth (test code = Temp Roberth) 37.0 [facility] CenterOrhlryeSPDJOIBVT6867-74-03 20:41:00 Test Item Value Reference Range Interpretation Comments O2 Sat Roberth (test code = O2 Sat Roberth) 92.0 40.0-70.0 H [facility] StationPyeifmkXFRAJSWIE4778-09-05 20:41:00 Test Item Value Reference Range Interpretation Comments BE Roberth (test code = 4 See_Comment H [Automa rohit message] The BE Roberth) system which ge nerated this result transmit rohit reference range : <=2. The reference range was not used to interpr et this result as reji l/abnormal. [facility] StationZptbbrkGYREBKRIY9551-08-39 20:41:00 Test Item Value Reference Range Interpretation Comments HCO3 Roberth (test code = HCO3 Roberth) 28.5 22.0-26.0 H [facility] StationTlofphqTAWSAUGGM8159-73-03 20:41:00 Test Item Value Reference Range Interpretation Comments pO2 Roberth (test code = pO2 Roberth) 60 20-49 H [facility] CenterPfoucgeIZKSYXRIP1095-11-73 20:41:00 Test Item Value Reference Range Interpretation Comments pCO2 Roberth (test code = pCO2 Roberth) 41 38-52 N [facility] CenterRbcdcfoGKIXTMHWE3415-84-19 20:41:00 Test Item Value Reference Range Interpretation Comments pH Roberth (test code = pH Roberth) 7.45 7.28-7.42 H [facility] StationPepsemxFEVSZYOFZ9579-42-74 20:41:00 Test Item Value Reference Range Interpretation Comments Temp Roberth (test code = Temp Roberth) 37.0 [facility] StationSrnmrjfEJBLAAKEC5502-44-58 20:41:00 Test Item Value Reference Range Interpretation Comments O2 Sat Roberth (test code = O2 Sat Roberth) 92.0 40.0-70.0 H [facility] StationVpwmiewNSOKPIJND4157-27-00 20:41:00 Test Item Value Reference Range Interpretation Comments BE Roberth (test code = 4 See_Comment H [Automa rohit message] The BE Roberth) system which ge nerated this result transmit rohit reference range : <=2. The reference range was not used to interpr et this result as reji l/abnormal. [facility] CenterAwkmhawCKBDCUEJG4262-52-74 20:41:00 Test Item Value Reference Range Interpretation Comments HCO3 Roberth (test code = HCO3 Roberth) 28.5 22.0-26.0 H [facility] CenterDsxerkhHLLCYJCMS9670-98-01 20:41:00 Test Item Value Reference Range Interpretation Comments pO2 Roberth (test code = pO2 Roberth) 60 20-49 H [facility] CenterLxcpkgdIERHYPUEG7066-07-44 20:41:00 Test Item Value Reference Range Interpretation Comments pCO2 Roberth (test code = pCO2 Roberth) 41 38-52 N [facility] CenterWjcjpfvUAJDSYRDQ9961-20-81 20:41:00 Test Item Value Reference Range Interpretation Comments pH Roberth (test code = pH Roberth) 7.45 7.28-7.42 H [facility] CenterVofvtwqIKVVROENR7824-97-64 20:41:00 Test Item Value Reference Range Interpretation Comments Temp Roberth (test code = Temp Roberth) 37.0 [facility] CenterPdstbyxFIKQMGAZP6047-84-03 20:41:00 Test Item Value Reference Range Interpretation Comments O2 Sat Roberth (test code = O2 Sat Roberth) 92.0 40.0-70.0 H [facility] CenterVcyslrvZXRTXKVYT6520-81-82 20:41:00 Test Item Value Reference Range Interpretation Comments BE Roberth (test code = 4 See_Comment H [Automa rohit message] The BE Roberth) system which ge nerated this result transmit rohit reference range : <=2. The reference range was not used to interpr et this result as reji l/abnormal. [facility] CenterNabzgdyWXVZKMLWS6650-84-43 20:41:00 Test Item Value Reference Range Interpretation Comments HCO3 Roberth (test code = HCO3 Roberth) 28.5 22.0-26.0 H [facility] CenterIrjjiypAHCMKQOXV1474-60-23 20:41:00 Test Item Value Reference Range Interpretation Comments pO2 Roberth (test code = pO2 Roberth) 60 20-49 H [facility] CenterTlzstcnEVBHFPTNE3375-18-12 20:41:00 Test Item Value Reference Range Interpretation Comments pCO2 Roberth (test code = pCO2 Roberth) 41 38-52 N [facility] CenterOjesujkHXBDKBXNH6705-54-98 20:41:00 Test Item Value Reference Range Interpretation Comments pH Roberth (test code = pH Roberth) 7.45 7.28-7.42 H [facility] CenterNzvsshfNDJUBPRRE7766-14-71 20:41:00 Test Item Value Reference Range Interpretation Comments Temp Roberth (test code = Temp Roberth) 37.0 [facility] CenterWkhjrivYKVTZJXLK4770-72-73 20:41:00 Test Item Value Reference Range Interpretation Comments O2 Sat Roberth (test code = O2 Sat Roberth) 92.0 40.0-70.0 H [facility] CenterLkplgnhZLBCHQLJF7795-46-57 20:41:00 Test Item Value Reference Range Interpretation Comments BE Roberth (test code = 4 See_Comment H [Automa rohit message] The BE Roberth) system which ge nerated this result transmit rohit reference range : <=2. The reference range was not used to interpr et this result as reji l/abnormal. [facility] StationArwyyfsYLYSPVVQO2488-19-46 20:41:00 Test Item Value Reference Range Interpretation Comments HCO3 Roberth (test code = HCO3 Roberth) 28.5 22.0-26.0 H [facility] CenterFibujlbRICLZBTJB8159-69-42 20:41:00 Test Item Value Reference Range Interpretation Comments pO2 Roberth (test code = pO2 Roberth) 60 20-49 H [facility] StationFzbnvmfTYYKAAVMU4582-55-58 20:41:00 Test Item Value Reference Range Interpretation Comments pCO2 Roberth (test code = pCO2 Roberth) 41 38-52 N [facility] CenterUhzmokvGIPNEWHGL8220-58-86 20:41:00 Test Item Value Reference Range Interpretation Comments pH Roberth (test code = pH Roberth) 7.45 7.28-7.42 H [facility] StationIauqmqdIFTZGEZDH2430-04-82 20:41:00 Test Item Value Reference Range Interpretation Comments Temp Roberth (test code = Temp Roberth) 37.0 [facility] StationAnvmdhdIIQWTSTDT6247-82-88 20:41:00 Test Item Value Reference Range Interpretation Comments O2 Sat Roberth (test code = O2 Sat Roberth) 92.0 40.0-70.0 H [facility] CenterClcmagaMXAKIGAQA4855-72-68 20:41:00 Test Item Value Reference Range Interpretation Comments BE Roberth (test code = 4 See_Comment H [Automa roiht message] The BE Roberth) system which ge nerated this result transmit rohit reference range : <=2. The reference range was not used to interpr et this result as reji l/abnormal. [facility] StationCpmylliTWGHERLDD8100-39-46 20:41:00 Test Item Value Reference Range Interpretation Comments HCO3 Roberth (test code = HCO3 Roberth) 28.5 22.0-26.0 H [facility] CenterOfadascVKZLBWBNT0826-86-54 20:00:00 Test Item Value Reference Range Interpretation Comments Lactic Acid Lvl (test code = Lactic 1.6 0.5-2.2 N Acid Lvl) [facility] CenterUsnziouOUFEDBKJG9611-67-38 20:00:00 Test Item Value Reference Range Interpretation Comments Lipase Lvl (test code = Lipase Lvl) 125 73-393 N [facility] CenterMrrhlycHCHDWWNSN7036-17-06 20:00:00 Test Item Value Reference Range Interpretation Comments Albumin Lvl (test code = Albumin Lvl) 4.2 3.5-5.0 N [facility] CenterQoozbgfUKGELMXRQ1196-94-88 20:00:00 Test Item Value Reference Range Interpretation Comments CO2 (test code = CO2) 23 24-32 L [facility] CenterIyhykhbDDAEVKBDW2131-80-74 20:00:00 Test Item Value Reference Range Interpretation Comments Chloride Lvl (test code = Chloride Lvl) 98 95-109 N [facility] CenterRgsunsgTMOGJOVTV1063-66-07 20:00:00 Test Item Value Reference Range Interpretation Comments Potassium Lvl (test code = Potassium 3.8 3.5-5.1 N Lvl) [facility] CenterBeoqazzBWQOGKSDS9781-56-04 20:00:00 Test Item Value Reference Range Interpretation Comments Sodium Lvl (test code = Sodium Lvl) 138 135-145 N [facility] CenterQqrwevrSHCADJUPV1067-09-35 20:00:00 Test Item Value Reference Range Interpretation Comments Creatinine Lvl (test code = Creatinine 0.7 0.5-1.4 N Lvl) [facility] CenterAvmhifcYGJSJECJF8059-30-28 20:00:00 Test Item Value Reference Range Interpretation Comments BUN (test code = BUN) 9 7-22 N [facility] CenterArlvnbcMZTNOXCIE8669-97-50 20:00:00 Test Item Value Reference Range Interpretation Comments Glucose Lvl (test code = Glucose Lvl) 269 70-99 H [facility] CenterFcbxfnsGFYDUFAWP1160-03-21 20:00:00 Test Item Value Reference Range Interpretation Comments B/C Ratio (test code = B/C Ratio) 13 6-25 N [facility] CenterQjfkdwbYSWDTAGHQ6150-99-68 20:00:00 Test Item Value Reference Range Interpretation Comments AGAP (test code = AGAP) 20.8 10.0-20.0 H [facility] CenterUuptlitRBZNXMTQU5261-83-03 20:00:00 Test Item Value Reference Range Interpretation Comments Calcium Lvl (test code = Calcium Lvl) 9.3 8.5-10.5 N [facility] CenterUrnrdhxMIACEFPLI7407-03-90 20:00:00 Test Item Value Reference Range Interpretation Comments Total Protein (test code = Total 6.7 6.4-8.4 N Protein) [facility] CenterOnimtpkPUDUIJYLW9724-60-50 20:00:00 Test Item Value Reference Range Interpretation Comments A/G Ratio (test code = A/G Ratio) 1.7 0.7-1.6 H [facility] CenterDjftsqgTKMGYUIJC5902-78-65 20:00:00 Test Item Value Reference Range Interpretation Comments Globulin (test code = Globulin) 2.5 2.0-4.0 N [facility] CenterYifvrllGPUJWHRGM7813-91-50 20:00:00 Test Item Value Reference Range Interpretation Comments AST (test code = AST) 18 See_Comment N [Auto mated message] The system which ge nerated this result transmit rohit reference range : <=37. The reference range was not used to interpr et this result as reji l/abnormal. [facility] CenterQvkkfdpFEGVCUREU6282-43-12 20:00:00 Test Item Value Reference Range Interpretation Comments Alk Phos (test code = Alk Phos) 62 39-136 N [facility] CenterWlsrwjxCPLDOMAMX0220-03-16 20:00:00 Test Item Value Reference Range Interpretation Comments ALT (test code = ALT) 32 See_Comment N [Auto mated message] The system which ge nerated this result transmit rohit reference range : <=65. The reference range was not used to interpr et this result as reji l/abnormal. [facility] CenterAezjncvOMBFKUFQJ1598-55-91 20:00:00 Test Item Value Reference Range Interpretation Comments Bili Total (test code = Bili Total) 0.7 0.2-1.3 N [facility]anoHfxxgyeBBVQNKIOFB7365-12-46 20:00:00 Test Item Value Reference Range Interpretation Comments Anisocyte (test code = 1+ *ABN*(11/28/2011 A Anisocyte) 15:00:00) [facility]anoBmxzmnqGPSQAHMAMS9765-63-79 20:00:00 Test Item Value Reference Range Interpretation Comments Monocytes # (test code 0.1 See_Comment N [Aut omated message] The = Monocytes #) system which generated this result tra nsmitted reference range : <=0.8. The reference r leo was not used to int erpret this result as normal/abnormal . [facility]anoKmxhahqUMNDPSVNSV0457-95-75 20:00:00 Test Item Value Reference Range Interpretation Comments Eosinophils # (test code 0.0 See_Comment N [A utomated message] The = Eosinophils #) system whic h generated this result tra nsmitted reference range : <=0.5. The reference r leo was not used to int erpret this result as normal/abnormal . [facility]anoDdqbncoVQCHSXYOLI4535-94-53 20:00:00 Test Item Value Reference Range Interpretation Comments Basophils # (test code 0.0 See_Comment N [Aut omated message] The = Basophils #) system which generated this result tra nsmitted reference range : <=0.2. The reference r leo was not used to int erpret this result as normal/abnormal . [facility]anoQtnujqdHEKDLSNLNY3665-40-38 20:00:00 Test Item Value Reference Range Interpretation Comments Neut Vac (test code = Slight *ABN*(11/28/2011 A Neut Vac) 15:00:00) [facility]anoBqrqqgtDIUDNBGUYE1637-83-88 20:00:00 Test Item Value Reference Range Interpretation Comments Large Plt (test code = Slight *ABN*(11/28/2011 A Large Plt) 15:00:00) [facility]anoAyedmvgLUSVNNLMDV8199-60-75 20:00:00 Test Item Value Reference Range Interpretation Comments Segs-Bands # (test code = Segs-Bands #) 5.7 1.5-8.1 N [facility]anoFudulfaFTYWNQKXKW9621-21-76 20:00:00 Test Item Value Reference Range Interpretation Comments Lymphocytes # (test code = Lymphocytes 0.8 1.0-5.5 L #) [facility]anoXulcsjfGOQBQCFFJD6562-58-43 20:00:00 Test Item Value Reference Range Interpretation Comments Eosinophils (test code = 0.2 See_Comment N [A utomated message] The Eosinophils) system which ge nerated this result tra nsmitted reference range : <=4.0. The reference r leo was not used to int erpret this result as normal/abnormal . [facility]anoElfffjeQXZXDMODDU4967-04-47 20:00:00 Test Item Value Reference Range Interpretation Comments Basophils (test code = 0.0 See_Comment N [Aut omated message] The Basophils) system which ge nerated this result tra nsmitted reference range : <=1.0. The reference r leo was not used to int erpret this result as normal/abnormal . [facility]anoDptrdzlAVGCVTZMFD8245-74-67 20:00:00 Test Item Value Reference Range Interpretation Comments Monocytes (test code = Monocytes) 1.9 2.0-12.0 L [facility]anoXyzvstvQNYUILFJVE1620-30-19 20:00:00 Test Item Value Reference Range Interpretation Comments Segs (test code = Segs) 86.2 45.0-75.0 H [facility]anoOvocjjcRQHHREUQNY5035-24-83 20:00:00 Test Item Value Reference Range Interpretation Comments Lymphocytes (test code = Lymphocytes) 11.7 20.0-40.0 L [facility]anoDxxismwBHWZZOSQSG8938-99-42 20:00:00 Test Item Value Reference Range Interpretation Comments MPV (test code = MPV) 10.8 7.4-10.4 H [facility]anoLtigtxdHSYGPFLWFV2607-69-67 20:00:00 Test Item Value Reference Range Interpretation Comments Platelet (test code = Platelet) 161 133-450 N [facility]anoNneuvckFMFMLUBHCU7204-26-96 20:00:00 Test Item Value Reference Range Interpretation Comments MCHC (test code = MCHC) 35.6 32.0-36.0 N [facility]anoTxwzcscPZJUAYJFZD6176-30-45 20:00:00 Test Item Value Reference Range Interpretation Comments RDW (test code = RDW) 12.4 11.5-14.5 N [facility]anoWjoamidDEIVTJFTJO6542-46-79 20:00:00 Test Item Value Reference Range Interpretation Comments MCH (test code = MCH) 30.7 pg 27.0-31.0 N [facility]anoTvbrcqpWSETTJVYKR3850-21-33 20:00:00 Test Item Value Reference Range Interpretation Comments MCV (test code = MCV) 86.1 81.0-99.0 N [facility]anoOrvckvgUFOGXGFITL1363-06-50 20:00:00 Test Item Value Reference Range Interpretation Comments Hct (test code = Hct) 33.6 36.0-48.0 L [facility]anoQksagyfAXFJUSPRTU2947-92-59 20:00:00 Test Item Value Reference Range Interpretation Comments Hgb (test code = Hgb) 12.0 12.0-16.0 N [facility]anoNvwimobTUNSIUGQPH4155-04-10 20:00:00 Test Item Value Reference Range Interpretation Comments RBC (test code = RBC) 3.90 4.20-5.40 L [facility]anoRagxwjvDWZUQMKWKH3050-79-98 20:00:00 Test Item Value Reference Range Interpretation Comments WBC (test code = WBC) 6.6 3.7-10.4 N [facility] CenterYkeweayWLWDHNAMY2719-40-89 20:00:00 Test Item Value Reference Range Interpretation Comments Lactic Acid Lvl (test code = Lactic 1.6 0.5-2.2 N Acid Lvl) [facility] CenterLxjsbztUKLWXKEVS1673-90-42 20:00:00 Test Item Value Reference Range Interpretation Comments Lipase Lvl (test code = Lipase Lvl) 125 73-393 N [facility] CenterReoyjgvHUUAJZJPX5302-59-78 20:00:00 Test Item Value Reference Range Interpretation Comments Albumin Lvl (test code = Albumin Lvl) 4.2 3.5-5.0 N [facility] CenterVkeajalHGDRTIJZZ2710-31-58 20:00:00 Test Item Value Reference Range Interpretation Comments CO2 (test code = CO2) 23 24-32 L [facility] CenterWvqmxjmFNMLPCWZD6631-32-44 20:00:00 Test Item Value Reference Range Interpretation Comments Chloride Lvl (test code = Chloride Lvl) 98 95-109 N [facility] CenterSnvikhzQZCFMKEQF1491-66-68 20:00:00 Test Item Value Reference Range Interpretation Comments Potassium Lvl (test code = Potassium 3.8 3.5-5.1 N Lvl) [facility] CenterOqztsowZDLGQPPOI7602-08-37 20:00:00 Test Item Value Reference Range Interpretation Comments Sodium Lvl (test code = Sodium Lvl) 138 135-145 N [facility] CenterNdnmprlVLJIXJTFR3694-28-35 20:00:00 Test Item Value Reference Range Interpretation Comments Creatinine Lvl (test code = Creatinine 0.7 0.5-1.4 N Lvl) [facility] CenterZvpjvloGFULLNRHH4526-66-53 20:00:00 Test Item Value Reference Range Interpretation Comments BUN (test code = BUN) 9 7-22 N [facility] CenterTttpmbeLKMKITCYA4904-00-51 20:00:00 Test Item Value Reference Range Interpretation Comments Glucose Lvl (test code = Glucose Lvl) 269 70-99 H [facility] CenterBboikwgDCCIQHOXG9196-06-44 20:00:00 Test Item Value Reference Range Interpretation Comments B/C Ratio (test code = B/C Ratio) 13 6-25 N [facility] CenterMeszeyrPPRBCZESM1486-09-94 20:00:00 Test Item Value Reference Range Interpretation Comments AGAP (test code = AGAP) 20.8 10.0-20.0 H [facility] CenterTgrbhnpCSMOEAQRY8132-85-99 20:00:00 Test Item Value Reference Range Interpretation Comments Calcium Lvl (test code = Calcium Lvl) 9.3 8.5-10.5 N [facility] CenterUvmjeajMXTVXLEMW8299-17-59 20:00:00 Test Item Value Reference Range Interpretation Comments Total Protein (test code = Total 6.7 6.4-8.4 N Protein) [facility] CenterJcxhfzpUEPSYGRPM2449-39-97 20:00:00 Test Item Value Reference Range Interpretation Comments A/G Ratio (test code = A/G Ratio) 1.7 0.7-1.6 H [facility] CenterYikonlgFLMENECVR6124-31-11 20:00:00 Test Item Value Reference Range Interpretation Comments Globulin (test code = Globulin) 2.5 2.0-4.0 N [facility] CenterNbhtshzAKPDIAJBE0983-59-23 20:00:00 Test Item Value Reference Range Interpretation Comments AST (test code = AST) 18 See_Comment N [Auto mated message] The system which ge nerated this result transmit rohit reference range : <=37. The reference range was not used to interpr et this result as reji l/abnormal. [facility] CenterOrwdjnaELJTDNIMR3287-91-55 20:00:00 Test Item Value Reference Range Interpretation Comments Alk Phos (test code = Alk Phos) 62 39-136 N [facility] CenterNswssfcBWELBECSN8173-85-57 20:00:00 Test Item Value Reference Range Interpretation Comments ALT (test code = ALT) 32 See_Comment N [Auto mated message] The system which ge nerated this result transmit rohit reference range : <=65. The reference range was not used to interpr et this result as reji l/abnormal. [facility] CenterJqtqbltNHKHEGTBI1121-72-20 20:00:00 Test Item Value Reference Range Interpretation Comments Bili Total (test code = Bili Total) 0.7 0.2-1.3 N [facility]QyrtwrrRPVPNFSQUU4976-84-37 20:00:00 Test Item Value Reference Range Interpretation Comments Anisocyte (test code = 1+ *ABN*(11/28/2011 A Anisocyte) 15:00:00) [facility]anoOwcocgcZTOIBZPBPP0177-87-80 20:00:00 Test Item Value Reference Range Interpretation Comments Monocytes # (test code 0.1 See_Comment N [Aut omated message] The = Monocytes #) system which generated this result tra nsmitted reference range : <=0.8. The reference r leo was not used to int erpret this result as normal/abnormal . [facility]anoWfhxludINWKHGACZY1543-79-20 20:00:00 Test Item Value Reference Range Interpretation Comments Eosinophils # (test code 0.0 See_Comment N [A utomated message] The = Eosinophils #) system whic h generated this result tra nsmitted reference range : <=0.5. The reference r leo was not used to int erpret this result as normal/abnormal . [facility]anoRstxxspOGBQCLJXHX1830-92-24 20:00:00 Test Item Value Reference Range Interpretation Comments Basophils # (test code 0.0 See_Comment N [Aut omated message] The = Basophils #) system which generated this result tra nsmitted reference range : <=0.2. The reference r leo was not used to int erpret this result as normal/abnormal . [facility]anoJtfziizCUZERZNOIF0039-06-95 20:00:00 Test Item Value Reference Range Interpretation Comments Neut Vac (test code = Slight *ABN*(11/28/2011 A Neut Vac) 15:00:00) [facility]anoXlzuaqtCXTXGILBFH3667-15-10 20:00:00 Test Item Value Reference Range Interpretation Comments Large Plt (test code = Slight *ABN*(11/28/2011 A Large Plt) 15:00:00) [facility]anoRkhyqxiKIAPCJUSBR2779-54-38 20:00:00 Test Item Value Reference Range Interpretation Comments Segs-Bands # (test code = Segs-Bands #) 5.7 1.5-8.1 N [facility]anoBalfcmqUXYLBXXPXX7471-06-08 20:00:00 Test Item Value Reference Range Interpretation Comments Lymphocytes # (test code = Lymphocytes 0.8 1.0-5.5 L #) [facility]anoJhrhwwkEZDBXAJWCZ9365-51-56 20:00:00 Test Item Value Reference Range Interpretation Comments Eosinophils (test code = 0.2 See_Comment N [A utomated message] The Eosinophils) system which ge nerated this result tra nsmitted reference range : <=4.0. The reference r leo was not used to int erpret this result as normal/abnormal . [facility]anoSxkpytuLLGFGTFAZN5898-52-91 20:00:00 Test Item Value Reference Range Interpretation Comments Basophils (test code = 0.0 See_Comment N [Aut omated message] The Basophils) system which ge nerated this result tra nsmitted reference range : <=1.0. The reference r leo was not used to int erpret this result as normal/abnormal . [facility]anoMgdtpskFXRLVRRHCD8792-16-44 20:00:00 Test Item Value Reference Range Interpretation Comments Monocytes (test code = Monocytes) 1.9 2.0-12.0 L [facility]anoMljlfkqMZBADIYKXN8188-46-33 20:00:00 Test Item Value Reference Range Interpretation Comments Segs (test code = Segs) 86.2 45.0-75.0 H [facility]anoTafzbfiHYEDLAMWTX0071-36-32 20:00:00 Test Item Value Reference Range Interpretation Comments Lymphocytes (test code = Lymphocytes) 11.7 20.0-40.0 L [facility]anoMgkxadfLDXCCTZSIB3993-26-10 20:00:00 Test Item Value Reference Range Interpretation Comments MPV (test code = MPV) 10.8 7.4-10.4 H [facility]anoTnmfdipCYDGGUJKBT3635-24-07 20:00:00 Test Item Value Reference Range Interpretation Comments Platelet (test code = Platelet) 161 133-450 N [facility]anoPictrwcAJFEFWJKAO3240-82-97 20:00:00 Test Item Value Reference Range Interpretation Comments MCHC (test code = MCHC) 35.6 32.0-36.0 N [facility]anoQdmjsaoJJDSRGLNIK9811-84-48 20:00:00 Test Item Value Reference Range Interpretation Comments RDW (test code = RDW) 12.4 11.5-14.5 N [facility]anoJqswpjfJQDONPLHAK6609-18-07 20:00:00 Test Item Value Reference Range Interpretation Comments MCH (test code = MCH) 30.7 pg 27.0-31.0 N [facility]anoNqhrdhbITKTVRNUEG9564-35-05 20:00:00 Test Item Value Reference Range Interpretation Comments MCV (test code = MCV) 86.1 81.0-99.0 N [facility]anoVbkjddcBVOUPEMREU5882-36-74 20:00:00 Test Item Value Reference Range Interpretation Comments Hct (test code = Hct) 33.6 36.0-48.0 L [facility]anoZehrejxBYPHDNAUYM7613-81-46 20:00:00 Test Item Value Reference Range Interpretation Comments Hgb (test code = Hgb) 12.0 12.0-16.0 N [facility]anoRxnqoasVCZHCXZOSX3027-77-28 20:00:00 Test Item Value Reference Range Interpretation Comments RBC (test code = RBC) 3.90 4.20-5.40 L [facility]anoEltnynkJVSPVLETDI0705-04-37 20:00:00 Test Item Value Reference Range Interpretation Comments WBC (test code = WBC) 6.6 3.7-10.4 N [facility] CenterAabmcysLJXEVJNYG5845-03-94 20:00:00 Test Item Value Reference Range Interpretation Comments Lactic Acid Lvl (test code = Lactic 1.6 0.5-2.2 N Acid Lvl) [facility] CenterJqaqffzWBCUNKGTN9731-99-70 20:00:00 Test Item Value Reference Range Interpretation Comments Lipase Lvl (test code = Lipase Lvl) 125 73-393 N [facility] CenterZtmndbxKYYMHYBOY8581-88-87 20:00:00 Test Item Value Reference Range Interpretation Comments Albumin Lvl (test code = Albumin Lvl) 4.2 3.5-5.0 N [facility] CenterObutuisEIENOQXFY6104-10-09 20:00:00 Test Item Value Reference Range Interpretation Comments CO2 (test code = CO2) 23 24-32 L [facility] CenterJopgizcMVCDGYRSG2781-72-02 20:00:00 Test Item Value Reference Range Interpretation Comments Chloride Lvl (test code = Chloride Lvl) 98 95-109 N [facility] CenterFzthjjeCTVBJNVEH0442-30-08 20:00:00 Test Item Value Reference Range Interpretation Comments Potassium Lvl (test code = Potassium 3.8 3.5-5.1 N Lvl) [facility] CenterWlndjjpDIPJCXALF8681-24-51 20:00:00 Test Item Value Reference Range Interpretation Comments Sodium Lvl (test code = Sodium Lvl) 138 135-145 N [facility] CenterOeyylrmEEYHJVQXU3067-57-17 20:00:00 Test Item Value Reference Range Interpretation Comments Creatinine Lvl (test code = Creatinine 0.7 0.5-1.4 N Lvl) [facility] CenterIifluqwRNJZHOHUT8205-77-88 20:00:00 Test Item Value Reference Range Interpretation Comments BUN (test code = BUN) 9 7-22 N [facility] CenterIubsftbIKTCVCGPN4414-22-39 20:00:00 Test Item Value Reference Range Interpretation Comments Glucose Lvl (test code = Glucose Lvl) 269 70-99 H [facility] CenterBsuctiqCOOYLXWFX1472-37-02 20:00:00 Test Item Value Reference Range Interpretation Comments B/C Ratio (test code = B/C Ratio) 13 6-25 N [facility] CenterObpggcaMQSKUWUVT5274-89-56 20:00:00 Test Item Value Reference Range Interpretation Comments AGAP (test code = AGAP) 20.8 10.0-20.0 H [facility] CenterBhbmkqjAWLACXWGG4187-70-79 20:00:00 Test Item Value Reference Range Interpretation Comments Calcium Lvl (test code = Calcium Lvl) 9.3 8.5-10.5 N [facility] CenterCvlonpdGMPQPKPWK7210-40-86 20:00:00 Test Item Value Reference Range Interpretation Comments Total Protein (test code = Total 6.7 6.4-8.4 N Protein) [facility] CenterXbilqjsHGSTUEUXF7986-12-37 20:00:00 Test Item Value Reference Range Interpretation Comments A/G Ratio (test code = A/G Ratio) 1.7 0.7-1.6 H [facility] CenterGloxujeQLNYNMOEM9423-80-66 20:00:00 Test Item Value Reference Range Interpretation Comments Globulin (test code = Globulin) 2.5 2.0-4.0 N [facility] CenterXcggqqbCPGZIEVTS4536-38-65 20:00:00 Test Item Value Reference Range Interpretation Comments AST (test code = AST) 18 See_Comment N [Auto mated message] The system which ge nerated this result transmit rohit reference range : <=37. The reference range was not used to interpr et this result as reji l/abnormal. [facility] CenterGqzetztDVTVUJZRO0947-01-61 20:00:00 Test Item Value Reference Range Interpretation Comments Alk Phos (test code = Alk Phos) 62 39-136 N [facility] CenterTvtklwhOBEFUQHEN4249-58-21 20:00:00 Test Item Value Reference Range Interpretation Comments ALT (test code = ALT) 32 See_Comment N [Auto mated message] The system which ge nerated this result transmit rohit reference range : <=65. The reference range was not used to interpr et this result as reji l/abnormal. [facility] CenterYalnqqqEPLIJNVKQ0248-78-00 20:00:00 Test Item Value Reference Range Interpretation Comments Bili Total (test code = Bili Total) 0.7 0.2-1.3 N [facility]anoLmxxeuiYOYOFLASKW3736-05-44 20:00:00 Test Item Value Reference Range Interpretation Comments Anisocyte (test code = 1+ *ABN*(11/28/2011 A Anisocyte) 15:00:00) [facility]anoYfpknrvVXDGIMKSES6502-10-50 20:00:00 Test Item Value Reference Range Interpretation Comments Monocytes # (test code 0.1 See_Comment N [Aut omated message] The = Monocytes #) system which generated this result tra nsmitted reference range : <=0.8. The reference r leo was not used to int erpret this result as normal/abnormal . [facility]anoQejzkybHTDEYNIDST6648-26-92 20:00:00 Test Item Value Reference Range Interpretation Comments Eosinophils # (test code 0.0 See_Comment N [A utomated message] The = Eosinophils #) system whic h generated this result tra nsmitted reference range : <=0.5. The reference r leo was not used to int erpret this result as normal/abnormal . [facility]anoXryfkfpVBIYIQYKSH4199-98-67 20:00:00 Test Item Value Reference Range Interpretation Comments Basophils # (test code 0.0 See_Comment N [Aut omated message] The = Basophils #) system which generated this result tra nsmitted reference range : <=0.2. The reference r leo was not used to int erpret this result as normal/abnormal . [facility]anoCkxuqndEBVMEFTNVR1505-29-52 20:00:00 Test Item Value Reference Range Interpretation Comments Neut Vac (test code = Slight *ABN*(11/28/2011 A Neut Vac) 15:00:00) [facility]anoMxeawixEAAVQHKWEA6264-98-90 20:00:00 Test Item Value Reference Range Interpretation Comments Large Plt (test code = Slight *ABN*(11/28/2011 A Large Plt) 15:00:00) [facility]anoLfrdhxiSECTNZEVIB4228-60-02 20:00:00 Test Item Value Reference Range Interpretation Comments Segs-Bands # (test code = Segs-Bands #) 5.7 1.5-8.1 N [facility]anoTaaiwivJCVTXGSNTA7523-04-87 20:00:00 Test Item Value Reference Range Interpretation Comments Lymphocytes # (test code = Lymphocytes 0.8 1.0-5.5 L #) [facility]anoWiufpjiWYTBZSFVGY4892-38-01 20:00:00 Test Item Value Reference Range Interpretation Comments Eosinophils (test code = 0.2 See_Comment N [A utomated message] The Eosinophils) system which ge nerated this result tra nsmitted reference range : <=4.0. The reference r leo was not used to int erpret this result as normal/abnormal . [facility]anoPrlduiuYZVWCAKVNP9231-78-16 20:00:00 Test Item Value Reference Range Interpretation Comments Basophils (test code = 0.0 See_Comment N [Aut omated message] The Basophils) system which ge nerated this result tra nsmitted reference range : <=1.0. The reference r leo was not used to int erpret this result as normal/abnormal . [facility]anoVlkncwnRFUQHZLFIU9347-62-93 20:00:00 Test Item Value Reference Range Interpretation Comments Monocytes (test code = Monocytes) 1.9 2.0-12.0 L [facility]anoNacnrktRJSGLYHMPF1182-59-57 20:00:00 Test Item Value Reference Range Interpretation Comments Segs (test code = Segs) 86.2 45.0-75.0 H [facility]anoKaygvbuTBRCYURMAM0391-97-17 20:00:00 Test Item Value Reference Range Interpretation Comments Lymphocytes (test code = Lymphocytes) 11.7 20.0-40.0 L [facility]anoJfpsgppBBLRXFVJUY8083-27-04 20:00:00 Test Item Value Reference Range Interpretation Comments MPV (test code = MPV) 10.8 7.4-10.4 H [facility]anoLmdusxdETNEBPGSRL3347-86-43 20:00:00 Test Item Value Reference Range Interpretation Comments Platelet (test code = Platelet) 161 133-450 N [facility]anoChovnpaCNHMMEVCKE2493-42-21 20:00:00 Test Item Value Reference Range Interpretation Comments MCHC (test code = MCHC) 35.6 32.0-36.0 N [facility]anoVtmndsvXGBXKBOFVE6249-49-78 20:00:00 Test Item Value Reference Range Interpretation Comments RDW (test code = RDW) 12.4 11.5-14.5 N [facility]anoLignlenFHENFBCAGV6157-51-86 20:00:00 Test Item Value Reference Range Interpretation Comments MCH (test code = MCH) 30.7 pg 27.0-31.0 N [facility]anoByowduxEPLCLHFLPK8660-80-86 20:00:00 Test Item Value Reference Range Interpretation Comments MCV (test code = MCV) 86.1 81.0-99.0 N [facility]anoAvcmncjGCMRGNCSKG8385-83-92 20:00:00 Test Item Value Reference Range Interpretation Comments Hct (test code = Hct) 33.6 36.0-48.0 L [facility]anoVqkumedZETYTYBZWK2030-05-43 20:00:00 Test Item Value Reference Range Interpretation Comments Hgb (test code = Hgb) 12.0 12.0-16.0 N [facility]anoZlmdaozPXRLMTRIGK4727-01-79 20:00:00 Test Item Value Reference Range Interpretation Comments RBC (test code = RBC) 3.90 4.20-5.40 L [facility]anoDooslupSAMIUYEBKB9097-15-29 20:00:00 Test Item Value Reference Range Interpretation Comments WBC (test code = WBC) 6.6 3.7-10.4 N [facility] CenterQmongchNVJQYFMPQ5691-26-78 20:00:00 Test Item Value Reference Range Interpretation Comments Lactic Acid Lvl (test code = Lactic 1.6 0.5-2.2 N Acid Lvl) [facility] CenterLtssfykMEZJWZZUF5919-14-30 20:00:00 Test Item Value Reference Range Interpretation Comments Lipase Lvl (test code = Lipase Lvl) 125 73-393 N [facility] CenterNccoyxwWDMNCXYZI4337-58-09 20:00:00 Test Item Value Reference Range Interpretation Comments Albumin Lvl (test code = Albumin Lvl) 4.2 3.5-5.0 N [facility] CenterElkeuwxDFAYPAYNN8417-33-48 20:00:00 Test Item Value Reference Range Interpretation Comments CO2 (test code = CO2) 23 24-32 L [facility] CenterOrpgssiRNBZWNVCA7084-08-69 20:00:00 Test Item Value Reference Range Interpretation Comments Chloride Lvl (test code = Chloride Lvl) 98 95-109 N [facility] CenterQlgqqvtIFNZCUZST9530-85-71 20:00:00 Test Item Value Reference Range Interpretation Comments Potassium Lvl (test code = Potassium 3.8 3.5-5.1 N Lvl) [facility] CenterCjsjrbhDFHSNFVSI4018-98-44 20:00:00 Test Item Value Reference Range Interpretation Comments Sodium Lvl (test code = Sodium Lvl) 138 135-145 N [facility] CenterRijtxpbFPXWIGBSS8421-20-82 20:00:00 Test Item Value Reference Range Interpretation Comments Creatinine Lvl (test code = Creatinine 0.7 0.5-1.4 N Lvl) [facility] CenterVxtppxbFMUANCFYI0968-40-96 20:00:00 Test Item Value Reference Range Interpretation Comments BUN (test code = BUN) 9 7-22 N [facility] CenterYjmojejETVIMOXYY2777-63-46 20:00:00 Test Item Value Reference Range Interpretation Comments Glucose Lvl (test code = Glucose Lvl) 269 70-99 H [facility] CenterSmafxagJJNCLIFEP0376-54-10 20:00:00 Test Item Value Reference Range Interpretation Comments B/C Ratio (test code = B/C Ratio) 13 6-25 N [facility] CenterNmakkfqKVMDLWSMW5689-54-14 20:00:00 Test Item Value Reference Range Interpretation Comments AGAP (test code = AGAP) 20.8 10.0-20.0 H [facility] CenterNztblqhRXTPSXDOT2668-53-79 20:00:00 Test Item Value Reference Range Interpretation Comments Calcium Lvl (test code = Calcium Lvl) 9.3 8.5-10.5 N [facility] CenterHqmffyjSLICBANZT3478-44-02 20:00:00 Test Item Value Reference Range Interpretation Comments Total Protein (test code = Total 6.7 6.4-8.4 N Protein) [facility] CenterIcylkbhPLMLIYINY4867-12-12 20:00:00 Test Item Value Reference Range Interpretation Comments A/G Ratio (test code = A/G Ratio) 1.7 0.7-1.6 H [facility] CenterMamjrmdNDTQLCQMU2947-23-29 20:00:00 Test Item Value Reference Range Interpretation Comments Globulin (test code = Globulin) 2.5 2.0-4.0 N [facility] CenterCwaggznWRXVRURHS7371-79-18 20:00:00 Test Item Value Reference Range Interpretation Comments AST (test code = AST) 18 See_Comment N [Auto mated message] The system which ge nerated this result transmit rohit reference range : <=37. The reference range was not used to interpr et this result as reji l/abnormal. [facility] CenterNmijjphOUFXCGGEA2886-57-57 20:00:00 Test Item Value Reference Range Interpretation Comments Alk Phos (test code = Alk Phos) 62 39-136 N [facility] CenterXhrpmqzRUSYOLXAQ0999-21-91 20:00:00 Test Item Value Reference Range Interpretation Comments ALT (test code = ALT) 32 See_Comment N [Auto mated message] The system which ge nerated this result transmit rohit reference range : <=65. The reference range was not used to interpr et this result as reji l/abnormal. [facility] CenterVfbiajeRITXNXZRT5317-51-33 20:00:00 Test Item Value Reference Range Interpretation Comments Bili Total (test code = Bili Total) 0.7 0.2-1.3 N [facility]anoKvquvfkWZBNHVGHVN3679-64-70 20:00:00 Test Item Value Reference Range Interpretation Comments Anisocyte (test code = 1+ *ABN*(11/28/2011 A Anisocyte) 15:00:00) [facility]anoOhnwqnbDIIQCQDBQU2252-75-63 20:00:00 Test Item Value Reference Range Interpretation Comments Monocytes # (test code 0.1 See_Comment N [Aut omated message] The = Monocytes #) system which generated this result tra nsmitted reference range : <=0.8. The reference r leo was not used to int erpret this result as normal/abnormal . [facility]anoMczbktdXMAHFESTMM4052-76-41 20:00:00 Test Item Value Reference Range Interpretation Comments Eosinophils # (test code 0.0 See_Comment N [A utomated message] The = Eosinophils #) system whic h generated this result tra nsmitted reference range : <=0.5. The reference r leo was not used to int erpret this result as normal/abnormal . [facility]anoLvhozqaCFXIJUVXWK0507-05-12 20:00:00 Test Item Value Reference Range Interpretation Comments Basophils # (test code 0.0 See_Comment N [Aut omated message] The = Basophils #) system which generated this result tra nsmitted reference range : <=0.2. The reference r leo was not used to int erpret this result as normal/abnormal . [facility]anoIulbawgSTOLWLAOQG2112-33-15 20:00:00 Test Item Value Reference Range Interpretation Comments Neut Vac (test code = Slight *ABN*(11/28/2011 A Neut Vac) 15:00:00) [facility]anoDwnbhdlCOUAYCRFLT8501-03-75 20:00:00 Test Item Value Reference Range Interpretation Comments Large Plt (test code = Slight *ABN*(11/28/2011 A Large Plt) 15:00:00) [facility]anoBmswydmLHWHUFTORO7442-41-68 20:00:00 Test Item Value Reference Range Interpretation Comments Segs-Bands # (test code = Segs-Bands #) 5.7 1.5-8.1 N [facility]anoLgvvbomALVSSNGIFO1596-83-21 20:00:00 Test Item Value Reference Range Interpretation Comments Lymphocytes # (test code = Lymphocytes 0.8 1.0-5.5 L #) [facility]anoCesilkoOFUDSPOYIG1936-32-14 20:00:00 Test Item Value Reference Range Interpretation Comments Eosinophils (test code = 0.2 See_Comment N [A utomated message] The Eosinophils) system which ge nerated this result tra nsmitted reference range : <=4.0. The reference r leo was not used to int erpret this result as normal/abnormal . [facility]VrjfjgzIPJRZHOKZQ5762-05-72 20:00:00 Test Item Value Reference Range Interpretation Comments Basophils (test code = 0.0 See_Comment N [Aut omated message] The Basophils) system which ge nerated this result tra nsmitted reference range : <=1.0. The reference r elo was not used to int erpret this result as normal/abnormal . [facility]anoDritaooLMRPACBOMA9734-21-90 20:00:00 Test Item Value Reference Range Interpretation Comments Monocytes (test code = Monocytes) 1.9 2.0-12.0 L [facility]anoEswkyulQCGOXWMKWG2345-17-29 20:00:00 Test Item Value Reference Range Interpretation Comments Segs (test code = Segs) 86.2 45.0-75.0 H [facility]anoTvsigtrYJYOYVKETM8120-20-53 20:00:00 Test Item Value Reference Range Interpretation Comments Lymphocytes (test code = Lymphocytes) 11.7 20.0-40.0 L [facility]anoXdseyngTEHJETIYDU5468-28-74 20:00:00 Test Item Value Reference Range Interpretation Comments MPV (test code = MPV) 10.8 7.4-10.4 H [facility]anoHnxvppoYOCOYHXPXK9487-18-17 20:00:00 Test Item Value Reference Range Interpretation Comments Platelet (test code = Platelet) 161 133-450 N [facility]anoUffvourLXNNZABKYG8599-47-61 20:00:00 Test Item Value Reference Range Interpretation Comments MCHC (test code = MCHC) 35.6 32.0-36.0 N [facility]anoZbjrynzIKRZOKYPBD0216-72-47 20:00:00 Test Item Value Reference Range Interpretation Comments RDW (test code = RDW) 12.4 11.5-14.5 N [facility]anoPcwnmpgDKQQRZMXGI4963-27-87 20:00:00 Test Item Value Reference Range Interpretation Comments MCH (test code = MCH) 30.7 pg 27.0-31.0 N [facility]anoOgxknfkMBYSIXQYHL7722-16-23 20:00:00 Test Item Value Reference Range Interpretation Comments MCV (test code = MCV) 86.1 81.0-99.0 N [facility]anoMyxgpmeZFAFIBMYPF8043-06-76 20:00:00 Test Item Value Reference Range Interpretation Comments Hct (test code = Hct) 33.6 36.0-48.0 L [facility]anoBnjdnltPNMYUSDZAD9845-93-08 20:00:00 Test Item Value Reference Range Interpretation Comments Hgb (test code = Hgb) 12.0 12.0-16.0 N [facility]anoUtrpjwdEISFKEHLFR6627-27-95 20:00:00 Test Item Value Reference Range Interpretation Comments RBC (test code = RBC) 3.90 4.20-5.40 L [facility]anoJpdzyzhRWGEKVMJXH3218-37-83 20:00:00 Test Item Value Reference Range Interpretation Comments WBC (test code = WBC) 6.6 3.7-10.4 N [facility] CenterZwvypdnWXYAXXKWP0261-27-46 20:00:00 Test Item Value Reference Range Interpretation Comments Lactic Acid Lvl (test code = Lactic 1.6 0.5-2.2 N Acid Lvl) [facility] CenterIcdrfebDGUGKTIBP4972-91-59 20:00:00 Test Item Value Reference Range Interpretation Comments Lipase Lvl (test code = Lipase Lvl) 125 73-393 N [facility] CenterCyyeymnCSNCYPHUP8094-37-91 20:00:00 Test Item Value Reference Range Interpretation Comments Albumin Lvl (test code = Albumin Lvl) 4.2 3.5-5.0 N [facility] CenterLgdsqqiABFVUWDMH2734-81-46 20:00:00 Test Item Value Reference Range Interpretation Comments CO2 (test code = CO2) 23 24-32 L [facility] CenterNmjouotZTIOKQAXP7810-66-40 20:00:00 Test Item Value Reference Range Interpretation Comments Chloride Lvl (test code = Chloride Lvl) 98 95-109 N [facility] CenterGivahcwXVSXTOTJD3096-21-46 20:00:00 Test Item Value Reference Range Interpretation Comments Potassium Lvl (test code = Potassium 3.8 3.5-5.1 N Lvl) [facility] CenterUxksyeeRCFGKXSMM0990-30-74 20:00:00 Test Item Value Reference Range Interpretation Comments Sodium Lvl (test code = Sodium Lvl) 138 135-145 N [facility] CenterFrgvyuqCVZUPVYTD8997-36-82 20:00:00 Test Item Value Reference Range Interpretation Comments Creatinine Lvl (test code = Creatinine 0.7 0.5-1.4 N Lvl) [facility] CenterWlxkpzdHHIQSUWBH7910-40-29 20:00:00 Test Item Value Reference Range Interpretation Comments BUN (test code = BUN) 9 7-22 N [facility] CenterYfkklhcAPBQHOXDM3078-31-20 20:00:00 Test Item Value Reference Range Interpretation Comments Glucose Lvl (test code = Glucose Lvl) 269 70-99 H [facility] CenterQnphaloCUWPNOAFH2876-98-18 20:00:00 Test Item Value Reference Range Interpretation Comments B/C Ratio (test code = B/C Ratio) 13 6-25 N [facility] CenterNyoetbwLDSXULDZV2965-42-15 20:00:00 Test Item Value Reference Range Interpretation Comments AGAP (test code = AGAP) 20.8 10.0-20.0 H [facility] CenterRknwsrzLWCDAFPFB8028-10-66 20:00:00 Test Item Value Reference Range Interpretation Comments Calcium Lvl (test code = Calcium Lvl) 9.3 8.5-10.5 N [facility] CenterWsgxkatNLTPTEJQC7287-76-81 20:00:00 Test Item Value Reference Range Interpretation Comments Total Protein (test code = Total 6.7 6.4-8.4 N Protein) [facility] CenterLhzcdlhIMAMPCTYP2379-27-82 20:00:00 Test Item Value Reference Range Interpretation Comments A/G Ratio (test code = A/G Ratio) 1.7 0.7-1.6 H [facility] CenterNglwxqlFPBHLLGDL8701-13-52 20:00:00 Test Item Value Reference Range Interpretation Comments Globulin (test code = Globulin) 2.5 2.0-4.0 N [facility] CenterXtakmraQORTAUQYX5177-72-39 20:00:00 Test Item Value Reference Range Interpretation Comments AST (test code = AST) 18 See_Comment N [Auto mated message] The system which ge nerated this result transmit rohit reference range : <=37. The reference range was not used to interpr et this result as reji l/abnormal. [facility] CenterAjfcqzgKIKZWMPDO3716-08-30 20:00:00 Test Item Value Reference Range Interpretation Comments Alk Phos (test code = Alk Phos) 62 39-136 N [facility] CenterEkafdbkVBCUQROWW6168-18-41 20:00:00 Test Item Value Reference Range Interpretation Comments ALT (test code = ALT) 32 See_Comment N [Auto mated message] The system which ge nerated this result transmit rohit reference range : <=65. The reference range was not used to interpr et this result as reji l/abnormal. [facility] CenterUskexueNMCAPRDKJ5118-26-77 20:00:00 Test Item Value Reference Range Interpretation Comments Bili Total (test code = Bili Total) 0.7 0.2-1.3 N [facility]anoEnochtaQWEERGLXAI6579-03-52 20:00:00 Test Item Value Reference Range Interpretation Comments Anisocyte (test code = 1+ *ABN*(11/28/2011 A Anisocyte) 15:00:00) [facility]anoWhsnsycMIRWPKPPUJ1338-40-03 20:00:00 Test Item Value Reference Range Interpretation Comments Monocytes # (test code 0.1 See_Comment N [Aut omated message] The = Monocytes #) system which generated this result tra nsmitted reference range : <=0.8. The reference r leo was not used to int erpret this result as normal/abnormal . [facility]anoIaxxaljGPIJXAMXAR6917-94-54 20:00:00 Test Item Value Reference Range Interpretation Comments Eosinophils # (test code 0.0 See_Comment N [A utomated message] The = Eosinophils #) system whic h generated this result tra nsmitted reference range : <=0.5. The reference r leo was not used to int erpret this result as normal/abnormal . [facility]anoAkzmknvHBXGQFRFVK0738-51-59 20:00:00 Test Item Value Reference Range Interpretation Comments Basophils # (test code 0.0 See_Comment N [Aut omated message] The = Basophils #) system which generated this result tra nsmitted reference range : <=0.2. The reference r leo was not used to int erpret this result as normal/abnormal . [facility]anoDqjyhijGDSTGACVUJ2630-15-55 20:00:00 Test Item Value Reference Range Interpretation Comments Neut Vac (test code = Slight *ABN*(11/28/2011 A Neut Vac) 15:00:00) [facility]anoJulikbgQVMYRUAXTU2172-87-76 20:00:00 Test Item Value Reference Range Interpretation Comments Large Plt (test code = Slight *ABN*(11/28/2011 A Large Plt) 15:00:00) [facility]anoEpecownMXMTDBYXDV8182-12-90 20:00:00 Test Item Value Reference Range Interpretation Comments Segs-Bands # (test code = Segs-Bands #) 5.7 1.5-8.1 N [facility]anoVssfxdqFIEGNMZOKA8492-69-98 20:00:00 Test Item Value Reference Range Interpretation Comments Lymphocytes # (test code = Lymphocytes 0.8 1.0-5.5 L #) [facility]anoMgxsebmIXGRTPVINZ7772-32-24 20:00:00 Test Item Value Reference Range Interpretation Comments Eosinophils (test code = 0.2 See_Comment N [A utomated message] The Eosinophils) system which ge nerated this result tra nsmitted reference range : <=4.0. The reference r leo was not used to int erpret this result as normal/abnormal . [facility]anoMuyrwruGPQVTITIXK6705-93-36 20:00:00 Test Item Value Reference Range Interpretation Comments Basophils (test code = 0.0 See_Comment N [Aut omated message] The Basophils) system which ge nerated this result tra nsmitted reference range : <=1.0. The reference r leo was not used to int erpret this result as normal/abnormal . [facility]anoUmwkhlhJHJIJLHTWK9210-60-36 20:00:00 Test Item Value Reference Range Interpretation Comments Monocytes (test code = Monocytes) 1.9 2.0-12.0 L [facility]anoPwwjiayBRICKQZPKA7815-68-31 20:00:00 Test Item Value Reference Range Interpretation Comments Segs (test code = Segs) 86.2 45.0-75.0 H [facility]anoEowhvhbIDCBQRFGWA2524-00-72 20:00:00 Test Item Value Reference Range Interpretation Comments Lymphocytes (test code = Lymphocytes) 11.7 20.0-40.0 L [facility]anoHzcoryaPZCZLNUSMJ8405-75-17 20:00:00 Test Item Value Reference Range Interpretation Comments MPV (test code = MPV) 10.8 7.4-10.4 H [facility]anoFthmmrbCVSIRJVCPD3717-92-07 20:00:00 Test Item Value Reference Range Interpretation Comments Platelet (test code = Platelet) 161 133-450 N [facility]anoWgphqryRBTMANRPJT8008-22-22 20:00:00 Test Item Value Reference Range Interpretation Comments MCHC (test code = MCHC) 35.6 32.0-36.0 N [facility]anoWjjyohmCFSUXCGMFT8144-11-96 20:00:00 Test Item Value Reference Range Interpretation Comments RDW (test code = RDW) 12.4 11.5-14.5 N [facility]anoUqfttszVXNWATGFZO1513-35-81 20:00:00 Test Item Value Reference Range Interpretation Comments MCH (test code = MCH) 30.7 pg 27.0-31.0 N [facility]anoZmhoavqELAAAWUIKB0727-98-82 20:00:00 Test Item Value Reference Range Interpretation Comments MCV (test code = MCV) 86.1 81.0-99.0 N [facility]anoKbgscwiLVPJNRREQT7754-33-71 20:00:00 Test Item Value Reference Range Interpretation Comments Hct (test code = Hct) 33.6 36.0-48.0 L [facility]anoWxtkujeWGSWXFBIID4035-18-59 20:00:00 Test Item Value Reference Range Interpretation Comments Hgb (test code = Hgb) 12.0 12.0-16.0 N [facility]anoNqasyykMUWNQFWPVT4945-56-10 20:00:00 Test Item Value Reference Range Interpretation Comments RBC (test code = RBC) 3.90 4.20-5.40 L [facility]anoRhfafewMGQKLKMRAC1495-46-01 20:00:00 Test Item Value Reference Range Interpretation Comments WBC (test code = WBC) 6.6 3.7-10.4 N [facility] CenterGggydcnNAGRDQLKE3605-68-38 19:51:00 Test Item Value Reference Range Interpretation Comments UDS Note (test code = See Note UDS Note) 5*NA*(11/28/2011 14:51:00) [facility] CenterQwgrxtdLKLIKXMFM6480-25-35 19:51:00 Test Item Value Reference Range Interpretation Comments U Phencyc Scr (test Negative code = U Phencyc Scr) *NA*(11/28/2011 14:51:00) [facility] CenterQumxpiwIMDTAKENX7964-44-63 19:51:00 Test Item Value Reference Range Interpretation Comments U Kelly Scr (test code Negative *NA*(11/28/2011 = U Kelly Scr) 14:51:00) [facility] CenterLjbvgemRRLMFTLFV6021-11-93 19:51:00 Test Item Value Reference Range Interpretation Comments U Amph Scr (test code Negative *NA*(11/28/2011 = U Amph Scr) 14:51:00) [facility] CenterHgushgxJWSWVWQSS2931-79-76 19:51:00 Test Item Value Reference Range Interpretation Comments U Opiate Scr (test Negative code = U Opiate Scr) *NA*(11/28/2011 14:51:00) [facility] CenterYarjuulHSHZJWZXD3919-39-33 19:51:00 Test Item Value Reference Range Interpretation Comments U Cocaine Scr (test Negative code = U Cocaine Scr) *NA*(11/28/2011 14:51:00) [facility] CenterEgudjhgWOPFUMFGA2059-44-67 19:51:00 Test Item Value Reference Range Interpretation Comments U Cannab Scr (test Negative code = U Cannab Scr) *NA*(11/28/2011 14:51:00) [facility] CenterKukkqhuEBXSEUSIH7489-00-62 19:51:00 Test Item Value Reference Range Interpretation Comments U Benzodia Scr (test Negative code = U Benzodia Scr) *NA*(11/28/2011 14:51:00) [facility] CenterDadkigvGRXITEHXA9568-39-79 19:51:00 Test Item Value Reference Range Interpretation Comments UDS Note (test code = See Note UDS Note) 5*NA*(11/28/2011 14:51:00) [facility] CenterTspdzrnOFNMMBTAA8996-30-96 19:51:00 Test Item Value Reference Range Interpretation Comments U Phencyc Scr (test Negative code = U Phencyc Scr) *NA*(11/28/2011 14:51:00) [facility] CenterPgcktawYBJKJWHIR8391-92-67 19:51:00 Test Item Value Reference Range Interpretation Comments U Kelly Scr (test code Negative *NA*(11/28/2011 = U Kelly Scr) 14:51:00) [facility] CenterNlzsmttRNPHWGEJT6501-33-96 19:51:00 Test Item Value Reference Range Interpretation Comments U Amph Scr (test code Negative *NA*(11/28/2011 = U Amph Scr) 14:51:00) [facility] CenterJfntrgmNCCBTSUUM9245-71-61 19:51:00 Test Item Value Reference Range Interpretation Comments U Opiate Scr (test Negative code = U Opiate Scr) *NA*(11/28/2011 14:51:00) [facility] CenterHxnocpeEGCTPUCCO2239-77-03 19:51:00 Test Item Value Reference Range Interpretation Comments U Cocaine Scr (test Negative code = U Cocaine Scr) *NA*(11/28/2011 14:51:00) [facility] CenterGvtvvjoGRXEYHDWB1360-16-19 19:51:00 Test Item Value Reference Range Interpretation Comments U Cannab Scr (test Negative code = U Cannab Scr) *NA*(11/28/2011 14:51:00) [facility] CenterGpnvitcQPXCGUTNY7128-38-71 19:51:00 Test Item Value Reference Range Interpretation Comments U Benzodia Scr (test Negative code = U Benzodia Scr) *NA*(11/28/2011 14:51:00) [facility] CenterGaxdlgoVGRBSPGOD0125-30-09 19:51:00 Test Item Value Reference Range Interpretation Comments UDS Note (test code = See Note UDS Note) 5*NA*(11/28/2011 14:51:00) [facility] CenterJmemebqTCMRJYSZU1618-67-93 19:51:00 Test Item Value Reference Range Interpretation Comments U Phencyc Scr (test Negative code = U Phencyc Scr) *NA*(11/28/2011 14:51:00) [facility] CenterPhttazaEXDPNGCCF0395-68-13 19:51:00 Test Item Value Reference Range Interpretation Comments U Kelly Scr (test code Negative *NA*(11/28/2011 = U Kelly Scr) 14:51:00) [facility] CenterMoxbnkmLFXRYYMVV7851-40-09 19:51:00 Test Item Value Reference Range Interpretation Comments U Amph Scr (test code Negative *NA*(11/28/2011 = U Amph Scr) 14:51:00) [facility] CenterNvclhpyYNTCIPHJB7586-36-96 19:51:00 Test Item Value Reference Range Interpretation Comments U Opiate Scr (test Negative code = U Opiate Scr) *NA*(11/28/2011 14:51:00) [facility] CenterPfpriphSWWHPNJLP2339-24-66 19:51:00 Test Item Value Reference Range Interpretation Comments U Cocaine Scr (test Negative code = U Cocaine Scr) *NA*(11/28/2011 14:51:00) [facility] CenterRtgwihbIPPRZSOOF3640-21-52 19:51:00 Test Item Value Reference Range Interpretation Comments U Cannab Scr (test Negative code = U Cannab Scr) *NA*(11/28/2011 14:51:00) [facility] CenterGtsusexVIKPZJAPN6888-18-10 19:51:00 Test Item Value Reference Range Interpretation Comments U Benzodia Scr (test Negative code = U Benzodia Scr) *NA*(11/28/2011 14:51:00) [facility] CenterWkgzozrFOIBBVIZO9934-94-41 19:51:00 Test Item Value Reference Range Interpretation Comments UDS Note (test code = See Note UDS Note) 5*NA*(11/28/2011 14:51:00) [facility] CenterOweyxhdRUXNZSNPS7516-55-42 19:51:00 Test Item Value Reference Range Interpretation Comments U Phencyc Scr (test Negative code = U Phencyc Scr) *NA*(11/28/2011 14:51:00) [facility] CenterTtdqrxsCPXJBRRXT9796-60-48 19:51:00 Test Item Value Reference Range Interpretation Comments U Kelly Scr (test code Negative *NA*(11/28/2011 = U Kelly Scr) 14:51:00) [facility] CenterNxbycjfXSSSPEFEL6900-29-60 19:51:00 Test Item Value Reference Range Interpretation Comments U Amph Scr (test code Negative *NA*(11/28/2011 = U Amph Scr) 14:51:00) [facility] CenterTcjbrrzRCGIHHFUY8609-32-54 19:51:00 Test Item Value Reference Range Interpretation Comments U Opiate Scr (test Negative code = U Opiate Scr) *NA*(11/28/2011 14:51:00) [facility] CenterFbpalgeJIBSUMNAV0723-05-23 19:51:00 Test Item Value Reference Range Interpretation Comments U Cocaine Scr (test Negative code = U Cocaine Scr) *NA*(11/28/2011 14:51:00) [facility] CenterCkmlmgvJNGTGPMFW6261-53-95 19:51:00 Test Item Value Reference Range Interpretation Comments U Cannab Scr (test Negative code = U Cannab Scr) *NA*(11/28/2011 14:51:00) [facility] CenterDpbxpylAAOXRWUIW7421-89-42 19:51:00 Test Item Value Reference Range Interpretation Comments U Benzodia Scr (test Negative code = U Benzodia Scr) *NA*(11/28/2011 14:51:00) [facility] CenterBkipryuNXWDPJOGK7748-55-19 19:51:00 Test Item Value Reference Range Interpretation Comments UDS Note (test code = See Note UDS Note) 5*NA*(11/28/2011 14:51:00) [facility] CenterUblqxmaMMTJSHNVZ4547-30-00 19:51:00 Test Item Value Reference Range Interpretation Comments U Phencyc Scr (test Negative code = U Phencyc Scr) *NA*(11/28/2011 14:51:00) [facility] CenterChjbdpdMTENAVQFB9403-69-16 19:51:00 Test Item Value Reference Range Interpretation Comments U Kelly Scr (test code Negative *NA*(11/28/2011 = U Kelly Scr) 14:51:00) [facility] CenterPgrqiqsASLHCQNQU7659-23-19 19:51:00 Test Item Value Reference Range Interpretation Comments U Amph Scr (test code Negative *NA*(11/28/2011 = U Amph Scr) 14:51:00) [facility] CenterLliwmhvJSBOYUZUL9099-67-95 19:51:00 Test Item Value Reference Range Interpretation Comments U Opiate Scr (test Negative code = U Opiate Scr) *NA*(11/28/2011 14:51:00) [facility] CenterWkhmrodJIONCOCOH0923-52-40 19:51:00 Test Item Value Reference Range Interpretation Comments U Cocaine Scr (test Negative code = U Cocaine Scr) *NA*(11/28/2011 14:51:00) [facility] CenterYstetqcIMXEGRIKC0844-05-48 19:51:00 Test Item Value Reference Range Interpretation Comments U Cannab Scr (test Negative code = U Cannab Scr) *NA*(11/28/2011 14:51:00) [facility] CenterGqluooiZWXYCYPOS1227-53-52 19:51:00 Test Item Value Reference Range Interpretation Comments U Benzodia Scr (test Negative code = U Benzodia Scr) *NA*(11/28/2011 14:51:00) [facility] GLUCOSE HRTPMTN2154-61-70 16:20:00 Test Item Value Reference Range Interpretation Comments Comment1 (test code = Comment1) Ravi RN/ [facility] GLUCOSE KPCYQUA0695-96-04 16:20:00 Test Item Value Reference Range Interpretation Comments Gluc POC Lifscn (test code = Gluc POC 328 70-99 H Lifscn) [facility] GLUCOSE QEIJURG3784-85-96 16:20:00 Test Item Value Reference Range Interpretation Comments Comment1 (test code = Comment1) Notify RN/ [facility] GLUCOSE [id number] 16:20:00 Test Item Value Reference Range Interpretation Comments Gluc POC Lifscn (test code = Gluc POC 328 70-99 H Lifscn) [facility] GLUCOSE NLMGYTK7659-49-48 16:20:00 Test Item Value Reference Range Interpretation Comments Comment1 (test code = Comment1) Notify RN/ [facility] GLUCOSE [id number] 16:20:00 Test Item Value Reference Range Interpretation Comments Gluc POC Lifscn (test code = Gluc POC 328 70-99 H Lifscn) [facility] GLUCOSE [id number] 16:20:00 Test Item Value Reference Range Interpretation Comments Comment1 (test code = Comment1) Notify RN/ [facility] GLUCOSE [id number] 16:20:00 Test Item Value Reference Range Interpretation Comments Gluc POC Lifscn (test code = Gluc POC 328 70-99 H Lifscn) [facility] GLUCOSE [id number] 16:20:00 Test Item Value Reference Range Interpretation Comments Comment1 (test code = Comment1) Notify RN/ [facility] GLUCOSE [id number] 16:20:00 Test Item Value Reference Range Interpretation Comments Gluc POC Lifscn (test code = Gluc POC 328 70-99 H Lifscn) [facility] StationQvimeimAPFAHUCWY7270-56-31 15:30:00 Test Item Value Reference Range Interpretation Comments U Preg (test code = U Negative (09/18/2011 N Preg) 10:30:00) [facility] StationJnicrxhQUXRXWYWZO0252-53-26 15:30:00 Test Item Value Reference Range Interpretation Comments UA WBC (test code = UA None Seen (09/18/2011 N WBC) 10:30:00) [facility] StationMtsqavdTJASPDGDNA8300-15-01 15:30:00 Test Item Value Reference Range Interpretation Comments UA RBC (test None Seen See_Comment N [Automated mes pastor] code = UA RBC) (09/18/[address] [facility] 10:30:00) generated this result transmitted ref erence range: <=2. The reference range was not used to int erpret this result as normal/abnormal . [facility]TtwwiiuZIWOBBKZZQ5581-10-08 15:30:00 Test Item Value Reference Range Interpretation Comments UA Bacteria (test code = None Seen (09/18/2011 N UA Bacteria) 10:30:00) [facility] NorthwestBugpnzdMUXKWDKJFZ2028-83-44 15:30:00 Test Item Value Reference Range Interpretation Comments UA Amorph Destiny (test Few /HPF A code = UA Amorph Destiny) *ABN*(09/18/2011 10:30:00) [facility]DuedrueQLUZHCGMAL2518-64-07 15:30:00 Test Item Value Reference Range Interpretation Comments Micro? (test code = Performed (09/18/2011 N Micro?) 10:30:00) [facility] NorthwestYqnskmsDPLABOTJMO6056-68-56 15:30:00 Test Item Value Reference Range Interpretation Comments UA Sq Epi (test code = Rare /LPF (09/18/2011 N UA Sq Epi) 10:30:00) [facility] [facility] NorthwestBjzadzvUTPJJMMAQO2250-25-69 15:30:00 Test Item Value Reference Range Interpretation Comments UA Ketones (test code = 15 mg/dL A UA Ketones) *ABN*(09/18/2011 10:30:00) [facility] NorthwestCrpfezrJJAJMKXHQC8435-64-39 15:30:00 Test Item Value Reference Range Interpretation Comments UA Glucose (test code = >=1000 mg/dL A UA Glucose) *ABN*(09/18/2011 10:30:00) [facility]RcdzwuyGVWTBWTVMM2010-25-86 15:30:00 Test Item Value Reference Range Interpretation Comments UA Protein (test code = Trace A UA Protein) *ABN*(09/18/2011 10:30:00) [facility]oundDxtkasuHUFZUCJIKO7278-27-11 15:30:00 Test Item Value Reference Range Interpretation Comments UA Urobilinogen (test code = UA 0.2 0.1-1.0 N Urobilinogen) [facility] NorthwestTlefyxbRIDKRFQCKM7041-50-99 15:30:00 Test Item Value Reference Range Interpretation Comments UA Blood (test code = Negative (09/18/2011 N UA Blood) 10:30:00) [facility]fSRCYJKJAQM9671-[facility]-30 15:30:00 Test Item Value Reference Range Interpretation Comments UA Bili (test code = Negative *NA*(09/18/2011 UA Bili) 10:30:00) [facility]KpqhoepTAUOTDQQTU4662-86-64 15:30:00 Test Item Value Reference Range Interpretation Comments UA Leuk Est (test Negative (09/18/2011 N code = UA Leuk Est) 10:30:00) [facility]CqlsofwOSILWIIEAL3947-02-40 15:30:00 Test Item Value Reference Range Interpretation Comments UA Nitrite (test code Negative (09/18/2011 N = UA Nitrite) 10:30:00) [facility] HospitalXzflbqiHIZYUPEBIE6133-77-05 15:30:00 Test Item Value Reference Range Interpretation Comments UA pH (test code = UA pH) 7.5 1 5.0-8.0 N [facility]oundVnptfblFACPKLUCTH4974-48-92 15:30:00 Test Item Value Reference Range Interpretation Comments UA Spec Grav (test code = UA Spec 1.010 1 N Grav) [facility]oundYkrawovHLXRBOYSJH0331-04-96 15:30:00 Test Item Value Reference Range Interpretation Comments UA Turbidity (test code Slight Cloudy N = UA Turbidity) (09/18/2011 10:30:00) [facility] HospitalVvmgmeuCOKZHZBWLP3824-22-37 15:30:00 Test Item Value Reference Range Interpretation Comments UA Color (test code = Yellow *NA*(09/18/2011 UA Color) 10:30:00) [facility] HospitalCrqqotpLWBFBFEDJ4745-65-73 15:30:00 Test Item Value Reference Range Interpretation Comments U Preg (test code = U Negative (09/18/2011 N Preg) 10:30:00) [facility] HospitalFtcmlaiEMDRQDVEVN3644-18-78 15:30:00 Test Item Value Reference Range Interpretation Comments UA WBC (test code = UA None Seen (09/18/2011 N WBC) 10:30:00) [facility]oundIkivmfvSTNMMASGRM0522-21-20 15:30:00 Test Item Value Reference Range Interpretation Comments UA RBC (test None Seen See_Comment N [Automated mes pastor] code = UA RBC) (09/18/2011 The system ich 10:30:00) generated this result transmitted ref erence range: <=2. The reference range was not used to int erpret this result as normal/abnormal . [facility]oundVjoyyclKQPMAFEVGQ2317-11-52 15:30:00 Test Item Value Reference Range Interpretation Comments UA Bacteria (test code = None Seen (09/18/2011 N UA Bacteria) 10:30:00) [facility] NorthwestCzihuvwFTPQOPBSHS0917-92-39 15:30:00 Test Item Value Reference Range Interpretation Comments UA Amorph Destiny (test Few /HPF A code = UA Amorph Destiny) *ABN*(09/18/2011 10:30:00) [facility]oundJbkqepdIDVGZFLJSO8156-30-43 15:30:00 Test Item Value Reference Range Interpretation Comments Micro? (test code = Performed (09/18/2011 N Micro?) 10:30:00) [facility] NorthwestKdywzpkIDNPOATTED5147-94-36 15:30:00 Test Item Value Reference Range Interpretation Comments UA Sq Epi (test code = Rare /LPF (09/18/2011 N UA Sq Epi) 10:30:00) [facility]oundJhysqmpPEGRPSSHEL7828-41-41 15:30:00 Test Item Value Reference Range Interpretation Comments UA Ketones (test code = 15 mg/dL A UA Ketones) *ABN*(09/18/2011 10:30:00) [facility] MoundLifpsirDCPSZBRIOX5178-72-22 15:30:00 Test Item Value Reference Range Interpretation Comments UA Glucose (test code = >=1000 mg/dL A UA Glucose) *ABN*(09/18/2011 10:30:00) [facility]oundYoptlrmUCTBDITGJM3664-37-13 15:30:00 Test Item Value Reference Range Interpretation Comments UA Protein (test code = Trace A UA Protein) *ABN*(09/18/2011 10:30:00) [facility]oundOmokgigBSWUUDKTCE9244-61-46 15:30:00 Test Item Value Reference Range Interpretation Comments UA Urobilinogen (test code = UA 0.2 0.1-1.0 N Urobilinogen) [facility] MoundNpknzljIVXBAJJSBH2490-64-86 15:30:00 Test Item Value Reference Range Interpretation Comments UA Blood (test code = Negative (09/18/2011 N UA Blood) 10:30:00) [facility]oundNexhfgdJWPUCKJHAH3034-57-11 15:30:00 Test Item Value Reference Range Interpretation Comments UA Bili (test code = Negative *NA*(09/18/2011 UA Bili) 10:30:00) [facility] ZrrgdxqKEWCGYBDZD4518-78-68 15:30:00 Test Item Value Reference Range Interpretation Comments UA Leuk Est (test Negative (09/18/2011 N code = UA Leuk Est) 10:30:00) [facility] StationWplmdleCOTAXKETAJ7264-29-08 15:30:00 Test Item Value Reference Range Interpretation Comments UA Nitrite (test code Negative (09/18/2011 N = UA Nitrite) 10:30:00) [facility] StationYitgaseZPUJQAOBTY2129-97-34 15:30:00 Test Item Value Reference Range Interpretation Comments UA pH (test code = UA pH) 7.5 1 5.0-8.0 N [facility] StationQpljnnmJIDGPDEIKU8629-33-11 15:30:00 Test Item Value Reference Range Interpretation Comments UA Spec Grav (test code = UA Spec 1.010 1 N Grav) [facility] StationCpvtcszRHZZULVWSO6482-46-16 15:30:00 Test Item Value Reference Range Interpretation Comments UA Turbidity (test code Slight Cloudy N = UA Turbidity) (09/18/2011 10:30:00) [facility] StationOfcdccoDLVUCWBCHH1665-48-70 15:30:00 Test Item Value Reference Range Interpretation Comments UA Color (test code = Yellow *NA*(09/18/2011 UA Color) 10:30:00) [facility] HospitalJxxjvehNJFAHJLAS8072-59-37 15:30:00 Test Item Value Reference Range Interpretation Comments U Preg (test code = U Negative (09/18/2011 N Preg) 10:30:00) [facility] StationPzinotySRHSBJPUNO6738-33-37 15:30:00 Test Item Value Reference Range Interpretation Comments UA WBC (test code = UA None Seen (09/18/2011 N WBC) 10:30:00) [facility] StationAdeqelvIJFRYMKIQT5487-17-51 15:30:00 Test Item Value Reference Range Interpretation Comments UA RBC (test None Seen See_Comment N [Automated mes pastor] code = UA RBC) (09/18/2011 The system wh ich 10:30:00) generated this result transmitted ref erence range: <=2. The reference range was not used to int erpret this result as normal/abnormal . [facility]qfKWMFOTYLLX4604-24-11 15:30:00 Test Item Value Reference Range Interpretation Comments UA Bacteria (test code = None Seen (09/18/2011 N UA Bacteria) 10:30:00) [facility] NorthwestAictzspKNSCAFKKCB4810-77-87 15:30:00 Test Item Value Reference Range Interpretation Comments UA Amorph Destiny (test Few /HPF A code = UA Amorph Destiny) *ABN*(09/18/2011 10:30:00) [facility] NorthwestRumgmomGODWEKRFWW7273-85-90 15:30:00 Test Item Value Reference Range Interpretation Comments Micro? (test code = Performed (09/18/2011 N Micro?) 10:30:00) [facility] NorthwestIsbnrrlSHTBUIFUGL8366-04-09 15:30:00 Test Item Value Reference Range Interpretation Comments UA Sq Epi (test code = Rare /LPF (09/18/2011 N UA Sq Epi) 10:30:00) [facility] NorthwestKdtpwsdDDRIESZDWD3691-91-94 15:30:00 Test Item Value Reference Range Interpretation Comments UA Ketones (test code = 15 mg/dL A UA Ketones) *ABN*(09/18/2011 10:30:00) [facility] NorthwestPqzxdvpFPOYFKSNUM8680-12-21 15:30:00 Test Item Value Reference Range Interpretation Comments UA Glucose (test code = >=1000 mg/dL A UA Glucose) *ABN*(09/18/2011 10:30:00) [facility] NorthwestUsnqcdvVYIDWSCYVH6737-31-03 15:30:00 Test Item Value Reference Range Interpretation Comments UA Protein (test code = Trace A UA Protein) *ABN*(09/18/2011 10:30:00) [facility] NorthwestXiwbqsoWJUCWNSMJA1298-88-44 15:30:00 Test Item Value Reference Range Interpretation Comments UA Urobilinogen (test code = UA 0.2 0.1-1.0 N Urobilinogen) [facility] NorthwestIatkxnkIZJXEXHNQC0822-85-94 15:30:00 Test Item Value Reference Range Interpretation Comments UA Blood (test code = Negative (09/18/2011 N UA Blood) 10:30:00) [facility] NorthwestUedmqyyDOFRQLLTNL4237-97-16 15:30:00 Test Item Value Reference Range Interpretation Comments UA Bili (test code = Negative *NA*(09/18/2011 UA Bili) 10:30:00) [facility] UyrwlaoDEZYBPGNVA8623-09-56 15:30:00 Test Item Value Reference Range Interpretation Comments UA Leuk Est (test Negative (09/18/2011 N code = UA Leuk Est) 10:30:00) [facility] StationWdfirmsRGJVRMLSUA8307-10-60 15:30:00 Test Item Value Reference Range Interpretation Comments UA Nitrite (test code Negative (09/18/2011 N = UA Nitrite) 10:30:00) [facility] StationSewagvyDMSVTGZAWU7680-60-99 15:30:00 Test Item Value Reference Range Interpretation Comments UA pH (test code = UA pH) 7.5 1 5.0-8.0 N [facility] StationQcilhpnBWGZUFFCAB1776-72-80 15:30:00 Test Item Value Reference Range Interpretation Comments UA Spec Grav (test code = UA Spec 1.010 1 N Grav) [facility]oundHqieoxsPJUTCAYVKJ7547-46-13 15:30:00 Test Item Value Reference Range Interpretation Comments UA Turbidity (test code Slight Cloudy N = UA Turbidity) (09/18/2011 10:30:00) [facility]PnqywpbLXGHLHNGAG4484-20-08 15:30:00 Test Item Value Reference Range Interpretation Comments UA Color (test code = Yellow *NA*(09/18/2011 UA Color) 10:30:00) [facility] HospitalTqoybtwCECLWXMSB7241-46-06 15:30:00 Test Item Value Reference Range Interpretation Comments U Preg (test code = U Negative (09/18/2011 N Preg) 10:30:00) [facility] StationMgsubtkZESFXCETDR0781-10-78 15:30:00 Test Item Value Reference Range Interpretation Comments UA WBC (test code = UA None Seen (09/18/2011 N WBC) 10:30:00) [facility] StationEkzdlfbXZJDSHXQHK7321-78-49 15:30:00 Test Item Value Reference Range Interpretation Comments UA RBC (test None Seen See_Comment N [Automated mes pastor] code = UA RBC) (09/18/2011 The system wh ich 10:30:00) generated this result transmitted ref erence range: <=2. The reference range was not used to int erpret this result as normal/abnormal . [facility] StationVwdjcyyUYNXOUVARF4749-24-61 15:30:00 Test Item Value Reference Range Interpretation Comments UA Bacteria (test code = None Seen (09/18/2011 N UA Bacteria) 10:30:00) [facility]oundGlhzwhxIXLCUBBXGV1697-83-15 15:30:00 Test Item Value Reference Range Interpretation Comments UA Amorph Destiny (test Few /HPF A code = UA Amorph Destiny) *ABN*(09/18/2011 10:30:00) [facility] NorthwestBdzznryOPGZMUCJCI1736-89-87 15:30:00 Test Item Value Reference Range Interpretation Comments Micro? (test code = Performed (09/18/2011 N Micro?) 10:30:00) [facility]oundLcnwojcGFWIBRYUUU7573-26-83 15:30:00 Test Item Value Reference Range Interpretation Comments UA Sq Epi (test code = Rare /LPF (09/18/2011 N UA Sq Epi) 10:30:00) [facility] NorthwestPeuqiyoNJGWICEFGS7863-67-72 15:30:00 Test Item Value Reference Range Interpretation Comments UA Ketones (test code = 15 mg/dL A UA Ketones) *ABN*(09/18/2011 10:30:00) [facility] NorthwestKpqlnelMPSZQKIGJI4462-65-62 15:30:00 Test Item Value Reference Range Interpretation Comments UA Glucose (test code = >=1000 mg/dL A UA Glucose) *ABN*(09/18/2011 10:30:00) [facility] NorthwestFkznkphWYPERTYRTM5646-78-15 15:30:00 Test Item Value Reference Range Interpretation Comments UA Protein (test code = Trace A UA Protein) *ABN*(09/18/2011 10:30:00) [facility] NorthwestPvdqxosCNYPLRKICN5742-53-55 15:30:00 Test Item Value Reference Range Interpretation Comments UA Urobilinogen (test code = UA 0.2 0.1-1.0 N Urobilinogen) [facility] MoundXiaenqeHVHHDYTIOL7660-58-13 15:30:00 Test Item Value Reference Range Interpretation Comments UA Blood (test code = Negative (09/18/2011 N UA Blood) 10:30:00) [facility] MoundWrsndiiKBWCJQXHET1880-37-01 15:30:00 Test Item Value Reference Range Interpretation Comments UA Bili (test code = Negative *NA*(09/18/2011 UA Bili) 10:30:00) [facility]oundThqsayqCTHOVFBUMD7858-35-27 15:30:00 Test Item Value Reference Range Interpretation Comments UA Leuk Est (test Negative (09/18/2011 N code = UA Leuk Est) 10:30:00) [facility] StationTybqbwzIQJDPBGOKW2435-63-62 15:30:00 Test Item Value Reference Range Interpretation Comments UA Nitrite (test code Negative (09/18/2011 N = UA Nitrite) 10:30:00) [facility] HospitalXwwvvihUOIHFAMEEJ4955-26-52 15:30:00 Test Item Value Reference Range Interpretation Comments UA pH (test code = UA pH) 7.5 1 5.0-8.0 N [facility] HospitalXwkedrqODIHDEXGMQ5920-69-08 15:30:00 Test Item Value Reference Range Interpretation Comments UA Spec Grav (test code = UA Spec 1.010 1 N Grav) [facility]oundOmsantxIKEVVULNGN6760-36-64 15:30:00 Test Item Value Reference Range Interpretation Comments UA Turbidity (test code Slight Cloudy N = UA Turbidity) (09/18/2011 10:30:00) [facility] MoundHanrrewCTIHDJEDQP0378-98-66 15:30:00 Test Item Value Reference Range Interpretation Comments UA Color (test code = Yellow *NA*(09/18/2011 UA Color) 10:30:00) [facility] HospitalQnbdplcVZMMCLIFE1412-03-78 15:30:00 Test Item Value Reference Range Interpretation Comments U Preg (test code = U Negative (09/18/2011 N Preg) 10:30:00) [facility] HospitalIclfdqlVHBLSPTOOE0152-60-84 15:30:00 Test Item Value Reference Range Interpretation Comments UA WBC (test code = UA None Seen (09/18/2011 N WBC) 10:30:00) [facility] HospitalSqxkbbgPBHGVVTPVD7041-92-96 15:30:00 Test Item Value Reference Range Interpretation Comments UA RBC (test None Seen See_Comment N [Automated mes pastor] code = UA RBC) (09/18/2011 The system wh ich 10:30:00) generated this result transmitted ref erence range: <=2. The reference range was not used to int erpret this result as normal/abnormal . [facility] MoundJblmbzgZZHEQHREBD7602-44-61 15:30:00 Test Item Value Reference Range Interpretation Comments UA Bacteria (test code = None Seen (09/18/2011 N UA Bacteria) 10:30:00) [facility] MoundRqfqbjbDTSJBOPHSW7426-71-18 15:30:00 Test Item Value Reference Range Interpretation Comments UA Amorph Destiny (test Few /HPF A code = UA Amorph Destiny) *ABN*(09/18/2011 10:30:00) [facility] NorthwestRngejzpHPOYBSRNQA2801-02-24 15:30:00 Test Item Value Reference Range Interpretation Comments Micro? (test code = Performed (09/18/2011 N Micro?) 10:30:00) [facility] NorthwestKrakxzvXLKMGOLGNY8880-26-41 15:30:00 Test Item Value Reference Range Interpretation Comments UA Sq Epi (test code = Rare /LPF (09/18/2011 N UA Sq Epi) 10:30:00) [facility] NorthwestNtxxbakMBAJZTSFAC4995-65-65 15:30:00 Test Item Value Reference Range Interpretation Comments UA Ketones (test code = 15 mg/dL A UA Ketones) *ABN*(09/18/2011 10:30:00) [facility] NorthwestHywptxzSILJVCUXXK8706-39-47 15:30:00 Test Item Value Reference Range Interpretation Comments UA Glucose (test code = >=1000 mg/dL A UA Glucose) *ABN*(09/18/2011 10:30:00) [facility] NorthwestLhtpobkVFXUYBKTJJ2433-54-45 15:30:00 Test Item Value Reference Range Interpretation Comments UA Protein (test code = Trace A UA Protein) *ABN*(09/18/2011 10:30:00) [facility] NorthwestXinejfoATNIPXYXHT6239-43-16 15:30:00 Test Item Value Reference Range Interpretation Comments UA Urobilinogen (test code = UA 0.2 0.1-1.0 N Urobilinogen) [facility] NorthwestFnqspypFFUGFKNNGT5837-96-86 15:30:00 Test Item Value Reference Range Interpretation Comments UA Blood (test code = Negative (09/18/2011 N UA Blood) 10:30:00) [facility] NorthwestZpjwjqjLXEPYFYDRR3951-28-31 15:30:00 Test Item Value Reference Range Interpretation Comments UA Bili (test code = Negative *NA*(09/18/2011 UA Bili) 10:30:00) [facility] NorthwestMxdqelaUUMJWHLZDS3962-77-54 15:30:00 Test Item Value Reference Range Interpretation Comments UA Leuk Est (test Negative (09/18/2011 N code = UA Leuk Est) 10:30:00) [facility] NorthwestKazxphwJKQPUQGGTS3132-57-46 15:30:00 Test Item Value Reference Range Interpretation Comments UA Nitrite (test code Negative (09/18/2011 N = UA Nitrite) 10:30:00) [facility] NorthwestArbnrdoYZRSEXJNOO8271-72-05 15:30:00 Test Item Value Reference Range Interpretation Comments UA pH (test code = UA pH) 7.5 1 5.0-8.0 N [facility] NorthwestFuhpptxGEXEDGTQFQ5367-79-98 15:30:00 Test Item Value Reference Range Interpretation Comments UA Spec Grav (test code = UA Spec 1.010 1 N Grav) [facility] NorthwestLhkbqqjPUHIQRDNKM6099-30-56 15:30:00 Test Item Value Reference Range Interpretation Comments UA Turbidity (test code Slight Cloudy N = UA Turbidity) (09/18/2011 10:30:00) [facility] NorthwestTtrrqyeUGYACTSUKM8273-80-78 15:30:00 Test Item Value Reference Range Interpretation Comments UA Color (test code = Yellow *NA*(09/18/2011 UA Color) 10:30:00) [facility] CenterFtuixvoVXBOKLCMY0060-10-34 14:07:00 Test Item Value Reference Range Interpretation Comments Phosphorus (test code = Phosphorus) 4.4 2.5-4.5 N [facility] CenterGdpjmymELCUGQSXT9771-96-18 14:07:00 Test Item Value Reference Range Interpretation Comments Magnesium Lvl (test code = Magnesium 1.6 1.8-2.4 L Lvl) [facility] CenterTubkqunWICOFOCLJ9381-48-98 14:07:00 Test Item Value Reference Range Interpretation Comments Phosphorus (test code = Phosphorus) 4.4 2.5-4.5 N [facility] CenterMuefpjbYIWNLJPAT8021-62-41 14:07:00 Test Item Value Reference Range Interpretation Comments Magnesium Lvl (test code = Magnesium 1.6 1.8-2.4 L Lvl) [facility] CenterUgbzioeCDOUGQQZP4344-25-58 14:07:00 Test Item Value Reference Range Interpretation Comments Phosphorus (test code = Phosphorus) 4.4 2.5-4.5 N [facility] CenterFxpjxvyGNXNIAGBR6455-58-52 14:07:00 Test Item Value Reference Range Interpretation Comments Magnesium Lvl (test code = Magnesium 1.6 1.8-2.4 L Lvl) [facility] CenterFpzhzyuXTFYECAGB7597-30-46 14:07:00 Test Item Value Reference Range Interpretation Comments Phosphorus (test code = Phosphorus) 4.4 2.5-4.5 N [facility] CenterViaoteeEWJTWNKEE0799-26-29 14:07:00 Test Item Value Reference Range Interpretation Comments Magnesium Lvl (test code = Magnesium 1.6 1.8-2.4 L Lvl) [facility] CenterTilbxgzNDJPPNNFH7472-85-86 14:07:00 Test Item Value Reference Range Interpretation Comments Phosphorus (test code = Phosphorus) 4.4 2.5-4.5 N [facility] CenterIsappecEGEZGTVPH5937-32-54 14:07:00 Test Item Value Reference Range Interpretation Comments Magnesium Lvl (test code = Magnesium 1.6 1.8-2.4 L Lvl) [facility] GLUCOSE ECXPHVA9824-03-45 14:01:00 Test Item Value Reference Range Interpretation Comments Gluc POC Lifscn (test code = Gluc POC no gt 70-99 A Lifscn) [facility] GLUCOSE DDHTMMP2976-66-92 14:01:00 Test Item Value Reference Range Interpretation Comments Gluc POC Lifscn (test code = Gluc POC no gt 70-99 A Lifscn) [facility] GLUCOSE AQOGXLI2843-27-71 14:01:00 Test Item Value Reference Range Interpretation Comments Gluc POC Lifscn (test code = Gluc POC no gt 70-99 A Lifscn) [facility] GLUCOSE QEIJNUU3215-27-67 14:01:00 Test Item Value Reference Range Interpretation Comments Gluc POC Lifscn (test code = Gluc POC no gt 70-99 A Lifscn) [facility] GLUCOSE [id number] 14:01:00 Test Item Value Reference Range Interpretation Comments Gluc POC Lifscn (test code = Gluc POC no gt 70-99 A Lifscn) [facility] CenterJxdwzjbWIOYVMIRM2599-84-99 13:52:00 Test Item Value Reference Range Interpretation Comments pO2 Roberth (test code = pO2 Roberth) 24 20-49 N [facility] CenterEnuemboVOSPAHECQ8053-83-74 13:52:00 Test Item Value Reference Range Interpretation Comments HCO3 Roberth (test code = HCO3 Roberth) 32.0 22.0-26.0 H [facility] CenterVlhyozoPYXPYSFYF9085-59-93 13:52:00 Test Item Value Reference Range Interpretation Comments pCO2 Roberth (test code = pCO2 Roberth) 44 38-52 N [facility] CenterGrwejbnGBIUIHAYB9030-63-31 13:52:00 Test Item Value Reference Range Interpretation Comments BE Roberth (test code = 7 See_Comment H [Automa rohit message] The BE Roberth) system which ge nerated this result transmit rohit reference range : <=2. The reference range was not used to interpr et this result as reji l/abnormal. [facility] CenterCqtwowqJMTZGJHYD7743-37-34 13:52:00 Test Item Value Reference Range Interpretation Comments O2 Sat Roberth (test code = O2 Sat Roberth) 48.0 40.0-70.0 N [facility] CenterHvklkncBCRWLPNKW6337-89-30 13:52:00 Test Item Value Reference Range Interpretation Comments Temp Roberth (test code = Temp Roberth) 37.0 [facility] CenterHsjenxfEFEDUMEKV7079-41-97 13:52:00 Test Item Value Reference Range Interpretation Comments pH Roberth (test code = pH Roberth) 7.47 7.28-7.42 H [facility] CenterZjvxfyaJZKABVBGO0544-86-80 13:52:00 Test Item Value Reference Range Interpretation Comments Calcium Lvl (test code = Calcium Lvl) 10.1 8.5-10.5 N [facility] CenterJmyqgfrJTYHUFRJX6535-31-25 13:52:00 Test Item Value Reference Range Interpretation Comments Chloride Lvl (test code = Chloride Lvl) 92 95-109 L [facility] CenterUohjmvoQMXMIRJKP9477-11-88 13:52:00 Test Item Value Reference Range Interpretation Comments CO2 (test code = CO2) 30 24-32 N [facility] CenterAtpcwwjOCUCVSMEQ1664-98-11 13:52:00 Test Item Value Reference Range Interpretation Comments Potassium Lvl (test code = Potassium 3.5 3.5-5.1 N Lvl) [facility] CenterNqiqkvaBBESZEDEY4863-35-65 13:52:00 Test Item Value Reference Range Interpretation Comments Sodium Lvl (test code = Sodium Lvl) 133 135-145 L [facility] CenterLddbkrjROEOLECJQ7412-92-73 13:52:00 Test Item Value Reference Range Interpretation Comments Creatinine Lvl (test code = Creatinine 1.3 0.5-1.4 N Lvl) [facility] CenterQtqdnloPKFVRRSHC7913-10-50 13:52:00 Test Item Value Reference Range Interpretation Comments Glucose Lvl (test code = Glucose Lvl) 383 70-99 H [facility] CenterQmoagdkEMGUHDPSW2992-86-93 13:52:00 Test Item Value Reference Range Interpretation Comments BUN (test code = BUN) 17 7-22 N [facility] CenterPvmfbxnTLNHMDRYJ5593-08-50 13:52:00 Test Item Value Reference Range Interpretation Comments AGAP (test code = AGAP) 14.5 10.0-20.0 N [facility]anoOibohvkVFPAMSXEMO9441-34-44 13:52:00 Test Item Value Reference Range Interpretation Comments MPV (test code = MPV) 12.0 7.4-10.4 H [facility]anoLjgswdtOTSQLVRWPO2486-12-82 13:52:00 Test Item Value Reference Range Interpretation Comments Platelet (test code = Platelet) 226 133-450 N [facility]anoHcfryfyGSCHBORVRV7023-31-64 13:52:00 Test Item Value Reference Range Interpretation Comments MCHC (test code = MCHC) 33.7 32.0-36.0 N [facility]anoGiomtaeHYVNTNXTRP7566-53-21 13:52:00 Test Item Value Reference Range Interpretation Comments MCH (test code = MCH) 28.5 pg 27.0-31.0 N [facility]anoIelxaadTAHMBXGIXS9858-66-98 13:52:00 Test Item Value Reference Range Interpretation Comments RDW (test code = RDW) 15.1 11.5-14.5 H [facility]anoVuqdgneEWHIVHNCIZ9810-39-79 13:52:00 Test Item Value Reference Range Interpretation Comments MCV (test code = MCV) 84.6 81.0-99.0 N [facility]anoUcslftkCINSEBNZCD9919-50-59 13:52:00 Test Item Value Reference Range Interpretation Comments Hct (test code = Hct) 36.4 36.0-48.0 N [facility]anoPffaagcCPPPIXNGCF7039-42-56 13:52:00 Test Item Value Reference Range Interpretation Comments Hgb (test code = Hgb) 12.3 12.0-16.0 N [facility]anoZpwhukpOWPXDYXVGL1217-10-63 13:52:00 Test Item Value Reference Range Interpretation Comments RBC (test code = RBC) 4.30 4.20-5.40 N [facility]anoEfriktwHLOTCFWQDW2566-15-42 13:52:00 Test Item Value Reference Range Interpretation Comments WBC (test code = WBC) 11.7 3.7-10.4 H [facility]anoXrtmujlVITIFBWMOS9341-73-12 13:52:00 Test Item Value Reference Range Interpretation Comments Monocytes (test code = Monocytes) 2.9 2.0-12.0 N [facility]anoIfmcqutJRUZHDBADU4795-27-41 13:52:00 Test Item Value Reference Range Interpretation Comments Eosinophils (test code = 0.2 See_Comment N [A utomated message] The Eosinophils) system which ge nerated this result tra nsmitted reference range : <=4.0. The reference r leo was not used to int erpret this result as normal/abnormal . [facility]anoHhwpaolJOAWTZVCAW2936-23-72 13:52:00 Test Item Value Reference Range Interpretation Comments Basophils (test code = 0.0 See_Comment N [Aut omated message] The Basophils) system which ge nerated this result tra nsmitted reference range : <=1.0. The reference r leo was not used to int erpret this result as normal/abnormal . [facility]anoLquqogtDUQAKNWXUC2234-97-16 13:52:00 Test Item Value Reference Range Interpretation Comments Eosinophils # (test code 0.0 See_Comment N [A utomated message] The = Eosinophils #) system wh h generated this result tra nsmitted reference range : <=0.5. The reference r leo was not used to int erpret this result as normal/abnormal . [facility]anoAicpiupYADJOSZDUP7893-53-98 13:52:00 Test Item Value Reference Range Interpretation Comments Monocytes # (test code 0.3 See_Comment N [Aut omated message] The = Monocytes #) system which generated this result tra nsmitted reference range : <=0.8. The reference r leo was not used to int erpret this result as normal/abnormal . [facility]anoXcslvddEOXASEOKRH6687-49-06 13:52:00 Test Item Value Reference Range Interpretation Comments Segs (test code = Segs) 92.0 45.0-75.0 H [facility]anoLzwhmyjPCZXVPIJQY0580-04-33 13:52:00 Test Item Value Reference Range Interpretation Comments Lymphocytes (test code = Lymphocytes) 4.9 20.0-40.0 L [facility]anoDhlnapnEWZAKGTGSC3925-00-78 13:52:00 Test Item Value Reference Range Interpretation Comments Spherocyte (test code = Rare A Spherocyte) *ABN*(09/18/2011 08:52:00) [facility]anoOosupyxEROIRJSSOA5478-07-81 13:52:00 Test Item Value Reference Range Interpretation Comments Large Plt (test code = Slight *ABN*(09/18/2011 A Large Plt) 08:52:00) [facility]anoYlnrsviHJCUSAXDQK2467-89-38 13:52:00 Test Item Value Reference Range Interpretation Comments Microcyte (test code = 1+ *ABN*(09/18/2011 A Microcyte) 08:52:00) [facility]anoXnzlczfRBLDSBCSHF8791-75-28 13:52:00 Test Item Value Reference Range Interpretation Comments Schistocyte (test code = Schistocyte) Rare [facility]anoNgfhyzbTNQQJUBNCR2171-23-04 13:52:00 Test Item Value Reference Range Interpretation Comments Macrocyte (test code = 1+ *ABN*(09/18/2011 A Macrocyte) 08:52:00) [facility]anoHosigglQGSEPZFFRX7531-58-21 13:52:00 Test Item Value Reference Range Interpretation Comments Lymphocytes # (test code = Lymphocytes 0.6 1.0-5.5 L #) [facility]anoVypnfnaCFTMLMJSMR2406-44-75 13:52:00 Test Item Value Reference Range Interpretation Comments Segs-Bands # (test code = Segs-Bands #) 10.8 1.5-8.1 H [facility]anoJiglvkcLCTSTWLSUD0152-75-08 13:52:00 Test Item Value Reference Range Interpretation Comments Basophils # (test code 0.0 See_Comment N [Aut omated message] The = Basophils #) system which generated this result tra nsmitted reference range : <=0.2. The reference r leo was not used to int erpret this result as normal/abnormal . [facility]anoVnhpfctVTZGQYGKBF7328-89-08 13:52:00 Test Item Value Reference Range Interpretation Comments Anisocyte (test code = 1+ *ABN*(09/18/2011 A Anisocyte) 08:52:00) [facility]IBNDVXHEEK8323[facility] 13:52:00 Test Item Value Reference Range Interpretation Comments CDC-HIV 1/2 Ab (test Negative *NA*(09/18/2011 code = CDC-HIV 1/2 08:52:00) Ab) [facility] CenterRdniasrGQCEWAADK9088-70-30 13:52:00 Test Item Value Reference Range Interpretation Comments pO2 Roberth (test code = pO2 Roberth) 24 20-49 N [facility] CenterFdtcpxfFZNHQCTCK2317-40-06 13:52:00 Test Item Value Reference Range Interpretation Comments HCO3 Roberth (test code = HCO3 Roberth) 32.0 22.0-26.0 H [facility] CenterAdrzuxtCNPTCQNCL9697-68-17 13:52:00 Test Item Value Reference Range Interpretation Comments pCO2 Roberth (test code = pCO2 Roberth) 44 38-52 N [facility] CenterPqyuzuzKUXDOVDUT0625-86-90 13:52:00 Test Item Value Reference Range Interpretation Comments BE Roberth (test code = 7 See_Comment H [Automa rohit message] The BE Roberth) system which ge nerated this result transmit rohit reference range : <=2. The reference range was not used to interpr et this result as reji l/abnormal. [facility] CenterKkdslnrNNCKGPJIB8220-10-60 13:52:00 Test Item Value Reference Range Interpretation Comments O2 Sat Roberth (test code = O2 Sat Roberth) 48.0 40.0-70.0 N [facility] CenterWtsmpvnIFSFSYNQX6135-92-78 13:52:00 Test Item Value Reference Range Interpretation Comments Temp Roberth (test code = Temp Roberth) 37.0 [facility] CenterNefdudaXIVHXXBCA9492-37-58 13:52:00 Test Item Value Reference Range Interpretation Comments pH Roberth (test code = pH Roberth) 7.47 7.28-7.42 H [facility] CenterFceynhlJZESWSWTO3865-49-18 13:52:00 Test Item Value Reference Range Interpretation Comments Calcium Lvl (test code = Calcium Lvl) 10.1 8.5-10.5 N [facility] CenterFagkyrkBENAYBMCA0985-85-75 13:52:00 Test Item Value Reference Range Interpretation Comments Chloride Lvl (test code = Chloride Lvl) 92 95-109 L [facility] CenterSrizvlxDFFGMZBAR7933-70-14 13:52:00 Test Item Value Reference Range Interpretation Comments CO2 (test code = CO2) 30 24-32 N [facility] CenterIjwfdrmMJXFBVMBV5149-67-09 13:52:00 Test Item Value Reference Range Interpretation Comments Potassium Lvl (test code = Potassium 3.5 3.5-5.1 N Lvl) [facility] CenterHdwougcNZBIUYAHY7369-78-23 13:52:00 Test Item Value Reference Range Interpretation Comments Sodium Lvl (test code = Sodium Lvl) 133 135-145 L [facility] CenterOmbmvxlDZNAXQDQQ8829-02-16 13:52:00 Test Item Value Reference Range Interpretation Comments Creatinine Lvl (test code = Creatinine 1.3 0.5-1.4 N Lvl) [facility] CenterDhtjfrhPQFAAAUNO7338-37-28 13:52:00 Test Item Value Reference Range Interpretation Comments Glucose Lvl (test code = Glucose Lvl) 383 70-99 H [facility] CenterMxzpyijKTNORPOIV7501-45-83 13:52:00 Test Item Value Reference Range Interpretation Comments BUN (test code = BUN) 17 7-22 N [facility] CenterXqdyytbAGDYHUCHV9736-32-61 13:52:00 Test Item Value Reference Range Interpretation Comments AGAP (test code = AGAP) 14.5 10.0-20.0 N [facility]anoTgcccaaQDUNVJHFBE3897-64-96 13:52:00 Test Item Value Reference Range Interpretation Comments MPV (test code = MPV) 12.0 7.4-10.4 H [facility]anoHtjwnvcZLJIAQDRTL4799-65-42 13:52:00 Test Item Value Reference Range Interpretation Comments Platelet (test code = Platelet) 226 133-450 N [facility]anoTmkmtszQDGVIESAYB0785-04-56 13:52:00 Test Item Value Reference Range Interpretation Comments MCHC (test code = MCHC) 33.7 32.0-36.0 N [facility]anoPpobwqaUTGALHLDMV9592-69-77 13:52:00 Test Item Value Reference Range Interpretation Comments MCH (test code = MCH) 28.5 pg 27.0-31.0 N [facility]anoRllmjbcAKXIJEEVPR8517-02-66 13:52:00 Test Item Value Reference Range Interpretation Comments RDW (test code = RDW) 15.1 11.5-14.5 H [facility]anoEgpafndGEXFAAGUSH8661-35-06 13:52:00 Test Item Value Reference Range Interpretation Comments MCV (test code = MCV) 84.6 81.0-99.0 N [facility]anoUquvlocTNTKACVDCW0996-57-06 13:52:00 Test Item Value Reference Range Interpretation Comments Hct (test code = Hct) 36.4 36.0-48.0 N [facility]anoBgowupnXXSDNBQUUM7016-28-45 13:52:00 Test Item Value Reference Range Interpretation Comments Hgb (test code = Hgb) 12.3 12.0-16.0 N [facility]anoQfslfofZHXTMVDDSZ1817-13-55 13:52:00 Test Item Value Reference Range Interpretation Comments RBC (test code = RBC) 4.30 4.20-5.40 N [facility]anoJrcfmqgRMLVJYXSRV0984-63-25 13:52:00 Test Item Value Reference Range Interpretation Comments WBC (test code = WBC) 11.7 3.7-10.4 H [facility]anoWdldovxAUCXVHUEKV5444-27-00 13:52:00 Test Item Value Reference Range Interpretation Comments Monocytes (test code = Monocytes) 2.9 2.0-12.0 N [facility]anoThwnhauGXOEFUXOWQ0641-78-23 13:52:00 Test Item Value Reference Range Interpretation Comments Eosinophils (test code = 0.2 See_Comment N [A utomated message] The Eosinophils) system which ge nerated this result tra nsmitted reference range : <=4.0. The reference r leo was not used to int erpret this result as normal/abnormal . [facility]anoDrhdposAXNUBUPVQF6078-54-66 13:52:00 Test Item Value Reference Range Interpretation Comments Basophils (test code = 0.0 See_Comment N [Aut omated message] The Basophils) system which ge nerated this result tra nsmitted reference range : <=1.0. The reference r leo was not used to int erpret this result as normal/abnormal . [facility]anoBtdwgkgFCDYJHRZCB4822-82-04 13:52:00 Test Item Value Reference Range Interpretation Comments Eosinophils # (test code 0.0 See_Comment N [A utomated message] The = Eosinophils #) system whic h generated this result tra nsmitted reference range : <=0.5. The reference r leo was not used to int erpret this result as normal/abnormal . [facility]anoSruvgdkNWIPYAGGBC3072-92-48 13:52:00 Test Item Value Reference Range Interpretation Comments Monocytes # (test code 0.3 See_Comment N [Aut omated message] The = Monocytes #) system which generated this result tra nsmitted reference range : <=0.8. The reference r leo was not used to int erpret this result as normal/abnormal . [facility]anoGotqtycBXMQFTQCOG5054-64-84 13:52:00 Test Item Value Reference Range Interpretation Comments Segs (test code = Segs) 92.0 45.0-75.0 H [facility]anoFdhlpgsCODMACQPOM0324-73-24 13:52:00 Test Item Value Reference Range Interpretation Comments Lymphocytes (test code = Lymphocytes) 4.9 20.0-40.0 L [facility]anoLofqoplSVEJCUVDRA6688-23-14 13:52:00 Test Item Value Reference Range Interpretation Comments Spherocyte (test code = Rare A Spherocyte) *ABN*(09/18/2011 08:52:00) [facility]anoItkpvqaTTGSKUJEIO9392-72-43 13:52:00 Test Item Value Reference Range Interpretation Comments Large Plt (test code = Slight *ABN*(09/18/2011 A Large Plt) 08:52:00) [facility]anoZrcvshbFKQVLINEDF3330-31-34 13:52:00 Test Item Value Reference Range Interpretation Comments Microcyte (test code = 1+ *ABN*(09/18/2011 A Microcyte) 08:52:00) [facility]anoAiysdigMZJQYYYGWO5534-39-01 13:52:00 Test Item Value Reference Range Interpretation Comments Schistocyte (test code = Schistocyte) Rare [facility]anoVanzlrnZHYKXRSQDG1054-61-97 13:52:00 Test Item Value Reference Range Interpretation Comments Macrocyte (test code = 1+ *ABN*(09/18/2011 A Macrocyte) 08:52:00) [facility]anoFhwvysuTKDWZEAFJU2110-64-73 13:52:00 Test Item Value Reference Range Interpretation Comments Lymphocytes # (test code = Lymphocytes 0.6 1.0-5.5 L #) [facility]anoOmldjuuDJXSIGNEHP8077-96-87 13:52:00 Test Item Value Reference Range Interpretation Comments Segs-Bands # (test code = Segs-Bands #) 10.8 1.5-8.1 H [facility]anoHwtcidfLSAZNTOBJM0090-66-44 13:52:00 Test Item Value Reference Range Interpretation Comments Basophils # (test code 0.0 See_Comment N [Aut omated message] The = Basophils #) system which generated this result tra nsmitted reference range : <=0.2. The reference r leo was not used to int erpret this result as normal/abnormal . [facility]anoRiwxzmkCXSABJCAMB8825-02-15 13:52:00 Test Item Value Reference Range Interpretation Comments Anisocyte (test code = 1+ *ABN*(09/18/2011 A Anisocyte) 08:52:00) [facility]SxxfxbaYVXSXQXQGQ4553-18-63 13:52:00 Test Item Value Reference Range Interpretation Comments CDC-HIV 1/2 Ab (test Negative *NA*(09/18/2011 code = CDC-HIV 1/2 08:52:00) Ab) [facility] CenterJmwcoqkSPXUFCMIZ1591-07-28 13:52:00 Test Item Value Reference Range Interpretation Comments pO2 Roberth (test code = pO2 Roberth) 24 20-49 N [facility] CenterMwubacvQQZWXZPAX4635-22-77 13:52:00 Test Item Value Reference Range Interpretation Comments HCO3 Roberth (test code = HCO3 Roberth) 32.0 22.0-26.0 H [facility] CenterSisqqtxFGVWYUXYJ1078-55-48 13:52:00 Test Item Value Reference Range Interpretation Comments pCO2 Roberth (test code = pCO2 Roberth) 44 38-52 N [facility] CenterUulhvkfXMGJMHDMR7176-34-52 13:52:00 Test Item Value Reference Range Interpretation Comments BE Roberth (test code = 7 See_Comment H [Automa rohit message] The BE Roberth) system which ge nerated this result transmit rohit reference range : <=2. The reference range was not used to interpr et this result as reji l/abnormal. [facility] CenterYswgxhvUWOSQPAWU1251-06-65 13:52:00 Test Item Value Reference Range Interpretation Comments O2 Sat Roberth (test code = O2 Sat Roberth) 48.0 40.0-70.0 N [facility] CenterDcwwzrlRAHMKMHCE5062-73-55 13:52:00 Test Item Value Reference Range Interpretation Comments Temp Roberth (test code = Temp Roberth) 37.0 [facility] CenterNvmbxqlNSQRIIPWF4898-40-69 13:52:00 Test Item Value Reference Range Interpretation Comments pH Roberth (test code = pH Roberth) 7.47 7.28-7.42 H [facility] CenterIplntnwJGBXIUVZX9966-69-24 13:52:00 Test Item Value Reference Range Interpretation Comments Calcium Lvl (test code = Calcium Lvl) 10.1 8.5-10.5 N [facility] CenterViubbyaAKMXVUMGD3436-05-01 13:52:00 Test Item Value Reference Range Interpretation Comments Chloride Lvl (test code = Chloride Lvl) 92 95-109 L [facility] CenterFetmbkkFAVNDXZJR0006-25-73 13:52:00 Test Item Value Reference Range Interpretation Comments CO2 (test code = CO2) 30 24-32 N [facility] CenterBvphrjzYAXJUEFLX0968-62-98 13:52:00 Test Item Value Reference Range Interpretation Comments Potassium Lvl (test code = Potassium 3.5 3.5-5.1 N Lvl) [facility] CenterPitykfjFBZLKRGYC6812-86-66 13:52:00 Test Item Value Reference Range Interpretation Comments Sodium Lvl (test code = Sodium Lvl) 133 135-145 L [facility] CenterMsyjuerTNCGBIQHL9133-67-87 13:52:00 Test Item Value Reference Range Interpretation Comments Creatinine Lvl (test code = Creatinine 1.3 0.5-1.4 N Lvl) [facility] CenterWioxyhnHBENNVJZT6627-87-10 13:52:00 Test Item Value Reference Range Interpretation Comments Glucose Lvl (test code = Glucose Lvl) 383 70-99 H [facility] CenterUwtthqeTWJCHIDVB7557-79-06 13:52:00 Test Item Value Reference Range Interpretation Comments BUN (test code = BUN) 17 7-22 N [facility] CenterDuozjrjDXZZFTKGI1143-98-14 13:52:00 Test Item Value Reference Range Interpretation Comments AGAP (test code = AGAP) 14.5 10.0-20.0 N [facility]anoSeuifsdRXBNVTRDMU8448-85-08 13:52:00 Test Item Value Reference Range Interpretation Comments MPV (test code = MPV) 12.0 7.4-10.4 H [facility]anoXriaaodUHTTETYJIU4914-80-12 13:52:00 Test Item Value Reference Range Interpretation Comments Platelet (test code = Platelet) 226 133-450 N [facility]anoAhvrtssZOPGVJGHHR4681-88-34 13:52:00 Test Item Value Reference Range Interpretation Comments MCHC (test code = MCHC) 33.7 32.0-36.0 N [facility]anoSpeoxksYLTLRDZXUB2079-64-75 13:52:00 Test Item Value Reference Range Interpretation Comments MCH (test code = MCH) 28.5 pg 27.0-31.0 N [facility]anoOlilmtgYTAQQUMGTS5556-13-78 13:52:00 Test Item Value Reference Range Interpretation Comments RDW (test code = RDW) 15.1 11.5-14.5 H [facility]anoDfdwwpnDNPWERNJPO6172-87-19 13:52:00 Test Item Value Reference Range Interpretation Comments MCV (test code = MCV) 84.6 81.0-99.0 N [facility] PlanoBtpkorlZIZADIPBBY4496-63-94 13:52:00 Test Item Value Reference Range Interpretation Comments Hct (test code = Hct) 36.4 36.0-48.0 N [facility]anoMdcjdvzPWZXIPQDRG9628-84-76 13:52:00 Test Item Value Reference Range Interpretation Comments Hgb (test code = Hgb) 12.3 12.0-16.0 N [facility]anoSnyovfwBPAFQPCCGS2678-01-05 13:52:00 Test Item Value Reference Range Interpretation Comments RBC (test code = RBC) 4.30 4.20-5.40 N [facility] PlanoKlyxlyvXXVYMADMAC2143-36-89 13:52:00 Test Item Value Reference Range Interpretation Comments WBC (test code = WBC) 11.7 3.7-10.4 H [facility]anoPxmdbxdKUDUEPTFYA2877-58-39 13:52:00 Test Item Value Reference Range Interpretation Comments Monocytes (test code = Monocytes) 2.9 2.0-12.0 N [facility] PlanoAqnyaovEYWVZKNOFO8373-12-01 13:52:00 Test Item Value Reference Range Interpretation Comments Eosinophils (test code = 0.2 See_Comment N [A utomated message] The Eosinophils) system which ge nerated this result tra nsmitted reference range : <=4.0. The reference r leo was not used to int erpret this result as normal/abnormal . [facility]anoYzdrnjsPWFXGQZVNZ3399-36-66 13:52:00 Test Item Value Reference Range Interpretation Comments Basophils (test code = 0.0 See_Comment N [Aut omated message] The Basophils) system which ge nerated this result tra nsmitted reference range : <=1.0. The reference r leo was not used to int erpret this result as normal/abnormal . [facility]anoYxxznpnGOXCVTMNFM2088-78-60 13:52:00 Test Item Value Reference Range Interpretation Comments Eosinophils # (test code 0.0 See_Comment N [A utomated message] The = Eosinophils #) system wh h generated this result tra nsmitted reference range : <=0.5. The reference r leo was not used to int erpret this result as normal/abnormal . [facility]anoBjxunpsXOKZTRYTOC0109-14-10 13:52:00 Test Item Value Reference Range Interpretation Comments Monocytes # (test code 0.3 See_Comment N [Aut omated message] The = Monocytes #) system which generated this result tra nsmitted reference range : <=0.8. The reference r leo was not used to int erpret this result as normal/abnormal . [facility]anoQslgyntXTGAPCGLGP2606-21-00 13:52:00 Test Item Value Reference Range Interpretation Comments Segs (test code = Segs) 92.0 45.0-75.0 H [facility] PlanoXkuryclWLUUDLYHCP6897-16-38 13:52:00 Test Item Value Reference Range Interpretation Comments Lymphocytes (test code = Lymphocytes) 4.9 20.0-40.0 L [facility]anoGckmpiwXBPCJYYIIE9673-94-47 13:52:00 Test Item Value Reference Range Interpretation Comments Spherocyte (test code = Rare A Spherocyte) *ABN*(09/18/2011 08:52:00) [facility]anoBvtiwkvQCCVCFDOPB0318-68-85 13:52:00 Test Item Value Reference Range Interpretation Comments Large Plt (test code = Slight *ABN*(09/18/2011 A Large Plt) 08:52:00) [facility]anoLyjtxzqMHFJRYHWWI3769-42-25 13:52:00 Test Item Value Reference Range Interpretation Comments Microcyte (test code = 1+ *ABN*(09/18/2011 A Microcyte) 08:52:00) [facility]anoCaffqgxEEFXSSBERY2975-99-83 13:52:00 Test Item Value Reference Range Interpretation Comments Schistocyte (test code = Schistocyte) Rare [facility]anoWdarwekGKMSVXPOPI5032-05-70 13:52:00 Test Item Value Reference Range Interpretation Comments Macrocyte (test code = 1+ *ABN*(09/18/2011 A Macrocyte) 08:52:00) [facility]anoByafkjzHMLXENLBTL9683-58-74 13:52:00 Test Item Value Reference Range Interpretation Comments Lymphocytes # (test code = Lymphocytes 0.6 1.0-5.5 L #) [facility]anoObwsofgHTRIVIGWPV0665-02-50 13:52:00 Test Item Value Reference Range Interpretation Comments Segs-Bands # (test code = Segs-Bands #) 10.8 1.5-8.1 H [facility]anoEbwhgniGOENHLBYFE1454-86-25 13:52:00 Test Item Value Reference Range Interpretation Comments Basophils # (test code 0.0 See_Comment N [Aut omated message] The = Basophils #) system which generated this result tra nsmitted reference range : <=0.2. The reference r elo was not used to int erpret this result as normal/abnormal . [facility] PlanoTdpqucgFBOQCACPDZ2662-50-41 13:52:00 Test Item Value Reference Range Interpretation Comments Anisocyte (test code = 1+ *ABN*(09/18/2011 A Anisocyte) 08:52:00) [facility]RsgdcznPEXBBHFARO4849-52-11 13:52:00 Test Item Value Reference Range Interpretation Comments CDC-HIV 1/2 Ab (test Negative *NA*(09/18/2011 code = CDC-HIV 1/2 08:52:00) Ab) [facility] CenterEeefanuQIMJZWKWP4041-29-81 13:52:00 Test Item Value Reference Range Interpretation Comments pO2 Roberth (test code = pO2 Roberth) 24 20-49 N [facility] CenterJwioiqiJRTNUOXXU8924-09-64 13:52:00 Test Item Value Reference Range Interpretation Comments HCO3 Roberth (test code = HCO3 Roberth) 32.0 22.0-26.0 H [facility] CenterNxqhaiaDQFEWAVMY4640-05-86 13:52:00 Test Item Value Reference Range Interpretation Comments pCO2 Roberth (test code = pCO2 Roberth) 44 38-52 N [facility] CenterCetbpqmWNVPEUAPH1454-65-65 13:52:00 Test Item Value Reference Range Interpretation Comments BE Roberth (test code = 7 See_Comment H [Automa rohit message] The BE Roberth) system which ge nerated this result transmit rohit reference range : <=2. The reference range was not used to interpr et this result as reji l/abnormal. [facility] CenterCkwerjrIAKGRPPNH5896-08-01 13:52:00 Test Item Value Reference Range Interpretation Comments O2 Sat Roberth (test code = O2 Sat Roberth) 48.0 40.0-70.0 N [facility] CenterQndnxjjWBIMZCVNK8062-98-84 13:52:00 Test Item Value Reference Range Interpretation Comments Temp Roberth (test code = Temp Roberth) 37.0 [facility] CenterZyflfoqWIQUPZWGC7391-87-71 13:52:00 Test Item Value Reference Range Interpretation Comments pH Roberth (test code = pH Roberth) 7.47 7.28-7.42 H [facility] CenterHjanbekGEPAJJBWY3895-06-55 13:52:00 Test Item Value Reference Range Interpretation Comments Calcium Lvl (test code = Calcium Lvl) 10.1 8.5-10.5 N [facility] CenterRjidvcnSBIHPXYVO0336-06-53 13:52:00 Test Item Value Reference Range Interpretation Comments Chloride Lvl (test code = Chloride Lvl) 92 95-109 L [facility] CenterAwqiwgfGBWRBMCZK4493-09-30 13:52:00 Test Item Value Reference Range Interpretation Comments CO2 (test code = CO2) 30 24-32 N [facility] CenterYhhjxzkAUFACNQAM2428-95-77 13:52:00 Test Item Value Reference Range Interpretation Comments Potassium Lvl (test code = Potassium 3.5 3.5-5.1 N Lvl) [facility] CenterEuhdclxOFMEIVPNM5357-09-62 13:52:00 Test Item Value Reference Range Interpretation Comments Sodium Lvl (test code = Sodium Lvl) 133 135-145 L [facility] CenterYmrfvxvGVUEMDIIO3958-24-81 13:52:00 Test Item Value Reference Range Interpretation Comments Creatinine Lvl (test code = Creatinine 1.3 0.5-1.4 N Lvl) [facility] CenterWktpyzcSDWEMUAKF7894-53-25 13:52:00 Test Item Value Reference Range Interpretation Comments Glucose Lvl (test code = Glucose Lvl) 383 70-99 H [facility] CenterIqrapsaEBXBNZWWC9969-19-59 13:52:00 Test Item Value Reference Range Interpretation Comments BUN (test code = BUN) 17 7-22 N [facility] CenterDfvcxtrWKVIXVFNY4050-46-07 13:52:00 Test Item Value Reference Range Interpretation Comments AGAP (test code = AGAP) 14.5 10.0-20.0 N [facility]GrvnlouBHSNDXJMRR1091-60-72 13:52:00 Test Item Value Reference Range Interpretation Comments MPV (test code = MPV) 12.0 7.4-10.4 H [facility]anoGyruhmwQXUCWNAJGU6715-01-04 13:52:00 Test Item Value Reference Range Interpretation Comments Platelet (test code = Platelet) 226 133-450 N [facility]anoAxsnfzkUCMLWKJYTB1515-79-25 13:52:00 Test Item Value Reference Range Interpretation Comments MCHC (test code = MCHC) 33.7 32.0-36.0 N [facility]anoPtigcunAJQHGPLCUM3004-85-88 13:52:00 Test Item Value Reference Range Interpretation Comments MCH (test code = MCH) 28.5 pg 27.0-31.0 N [facility]anoWcubbakTWKCTPCCRJ5079-13-85 13:52:00 Test Item Value Reference Range Interpretation Comments RDW (test code = RDW) 15.1 11.5-14.5 H [facility]anoBtesywwWVJODQGCQN5786-64-74 13:52:00 Test Item Value Reference Range Interpretation Comments MCV (test code = MCV) 84.6 81.0-99.0 N [facility]anoDduunyhSRTXVEYRSY8704-34-46 13:52:00 Test Item Value Reference Range Interpretation Comments Hct (test code = Hct) 36.4 36.0-48.0 N [facility]anoRzajwijDCGQLMXCTK1831-75-46 13:52:00 Test Item Value Reference Range Interpretation Comments Hgb (test code = Hgb) 12.3 12.0-16.0 N [facility]anoShwdtabSDNJJFEQXX0842-96-12 13:52:00 Test Item Value Reference Range Interpretation Comments RBC (test code = RBC) 4.30 4.20-5.40 N [facility]anoRiyamjnDCQVZVKKFV2531-90-88 13:52:00 Test Item Value Reference Range Interpretation Comments WBC (test code = WBC) 11.7 3.7-10.4 H [facility]anoRifudrdYTNUHXVALJ9614-48-44 13:52:00 Test Item Value Reference Range Interpretation Comments Monocytes (test code = Monocytes) 2.9 2.0-12.0 N [facility]anoDeitmhbQOSCEJXJCQ1369-30-29 13:52:00 Test Item Value Reference Range Interpretation Comments Eosinophils (test code = 0.2 See_Comment N [A utomated message] The Eosinophils) system which ge nerated this result tra nsmitted reference range : <=4.0. The reference r leo was not used to int erpret this result as normal/abnormal . [facility]anoBpjxmykIFRHQOCIMI2735-78-27 13:52:00 Test Item Value Reference Range Interpretation Comments Basophils (test code = 0.0 See_Comment N [Aut omated message] The Basophils) system which ge nerated this result tra nsmitted reference range : <=1.0. The reference r leo was not used to int erpret this result as normal/abnormal . [facility]anoJpswdzzUCQHPDNEZZ1638-75-99 13:52:00 Test Item Value Reference Range Interpretation Comments Eosinophils # (test code 0.0 See_Comment N [A utomated message] The = Eosinophils #) system whic h generated this result tra nsmitted reference range : <=0.5. The reference r leo was not used to int erpret this result as normal/abnormal . [facility]anoAugdayqNNLAIKCJYD0559-82-24 13:52:00 Test Item Value Reference Range Interpretation Comments Monocytes # (test code 0.3 See_Comment N [Aut omated message] The = Monocytes #) system which generated this result tra nsmitted reference range : <=0.8. The reference r leo was not used to int erpret this result as normal/abnormal . [facility]anoWhgoxeaCXNABVWCEC9086-14-67 13:52:00 Test Item Value Reference Range Interpretation Comments Segs (test code = Segs) 92.0 45.0-75.0 H [facility]anoYnhqvjjWCZPSDQLPS0130-87-90 13:52:00 Test Item Value Reference Range Interpretation Comments Lymphocytes (test code = Lymphocytes) 4.9 20.0-40.0 L [facility]anoPnbhoqtYGBXSIZWVU5790-40-92 13:52:00 Test Item Value Reference Range Interpretation Comments Spherocyte (test code = Rare A Spherocyte) *ABN*(09/18/2011 08:52:00) [facility]anoNysbpgtJCDTPHYNMK9138-19-04 13:52:00 Test Item Value Reference Range Interpretation Comments Large Plt (test code = Slight *ABN*(09/18/2011 A Large Plt) 08:52:00) [facility]anoZpihfjfVIOMWIRVRF7885-99-22 13:52:00 Test Item Value Reference Range Interpretation Comments Microcyte (test code = 1+ *ABN*(09/18/2011 A Microcyte) 08:52:00) [facility]anoWvvtsxwFVYWWZAERD7701-95-57 13:52:00 Test Item Value Reference Range Interpretation Comments Schistocyte (test code = Schistocyte) Rare [facility]anoQtjxzbbRLGERVPWRO3498-09-92 13:52:00 Test Item Value Reference Range Interpretation Comments Macrocyte (test code = 1+ *ABN*(09/18/2011 A Macrocyte) 08:52:00) [facility]anoYlzbvfrLRISSILUMD1734-89-72 13:52:00 Test Item Value Reference Range Interpretation Comments Lymphocytes # (test code = Lymphocytes 0.6 1.0-5.5 L #) [facility]anoBuirctnGEOIRRIJWO1937-62-04 13:52:00 Test Item Value Reference Range Interpretation Comments Segs-Bands # (test code = Segs-Bands #) 10.8 1.5-8.1 H [facility]anoPgpiamoGWRBNQISXE2210-74-14 13:52:00 Test Item Value Reference Range Interpretation Comments Basophils # (test code 0.0 See_Comment N [Aut omated message] The = Basophils #) system which generated this result tra nsmitted reference range : <=0.2. The reference r leo was not used to int erpret this result as normal/abnormal . [facility]anoSnwjbjiNOYSHFHDJH0076-82-16 13:52:00 Test Item Value Reference Range Interpretation Comments Anisocyte (test code = 1+ *ABN*(09/18/2011 A Anisocyte) 08:52:00) [facility]WH[facility]LCV4688[facility] 13:52:00 Test Item Value Reference Range Interpretation Comments CDC-HIV 1/2 Ab (test Negative *NA*(09/18/2011 code = CDC-HIV 1/2 08:52:00) Ab) [facility] CenterMjbxnxsKBNCQUQFM0128-21-89 13:52:00 Test Item Value Reference Range Interpretation Comments pO2 Roberth (test code = pO2 Roberth) 24 20-49 N [facility] CenterRjpbacqPXWSAIMHA7163-16-40 13:52:00 Test Item Value Reference Range Interpretation Comments HCO3 Roberth (test code = HCO3 Roberth) 32.0 22.0-26.0 H [facility] CenterEnpexcuLXBEUCVSK8751-72-83 13:52:00 Test Item Value Reference Range Interpretation Comments pCO2 Roberth (test code = pCO2 Roberth) 44 38-52 N [facility] CenterKmkrxyqLRHEDTDCI5305-26-79 13:52:00 Test Item Value Reference Range Interpretation Comments BE Roberth (test code = 7 See_Comment H [Automa rohit message] The BE Roberth) system which ge nerated this result transmit rohit reference range : <=2. The reference range was not used to interpr et this result as reji l/abnormal. [facility] CenterWrvwprcRSSMJCYLN1681-17-62 13:52:00 Test Item Value Reference Range Interpretation Comments O2 Sat Roberth (test code = O2 Sat Roberth) 48.0 40.0-70.0 N [facility] CenterAwiknopUYGLNRFRX9751-82-11 13:52:00 Test Item Value Reference Range Interpretation Comments Temp Roberth (test code = Temp Roberth) 37.0 [facility] CenterYznomjkUBYYPLHOH5479-80-88 13:52:00 Test Item Value Reference Range Interpretation Comments pH Roberth (test code = pH Roberth) 7.47 7.28-7.42 H [facility] CenterLzjecwzRIKUIHPCA5351-37-63 13:52:00 Test Item Value Reference Range Interpretation Comments Calcium Lvl (test code = Calcium Lvl) 10.1 8.5-10.5 N [facility] CenterXieghrqLXSDUVSXV9124-73-09 13:52:00 Test Item Value Reference Range Interpretation Comments Chloride Lvl (test code = Chloride Lvl) 92 95-109 L [facility] CenterHqegnmvUBKANJELF6159-93-14 13:52:00 Test Item Value Reference Range Interpretation Comments CO2 (test code = CO2) 30 24-32 N [facility] CenterBydvzycELCDAYGDA0587-83-98 13:52:00 Test Item Value Reference Range Interpretation Comments Potassium Lvl (test code = Potassium 3.5 3.5-5.1 N Lvl) [facility] CenterGtmlmubLUFQHJYCV8998-90-00 13:52:00 Test Item Value Reference Range Interpretation Comments Sodium Lvl (test code = Sodium Lvl) 133 135-145 L [facility] CenterCbycfquWTSYWCZQP2594-76-46 13:52:00 Test Item Value Reference Range Interpretation Comments Creatinine Lvl (test code = Creatinine 1.3 0.5-1.4 N Lvl) [facility] CenterPxxqfnxZHJBSFRYK7137-21-37 13:52:00 Test Item Value Reference Range Interpretation Comments Glucose Lvl (test code = Glucose Lvl) 383 70-99 H [facility] CenterQpycchyGQJSHVDOP1461-48-90 13:52:00 Test Item Value Reference Range Interpretation Comments BUN (test code = BUN) 17 7-22 N [facility] CenterZrhmcvqUVTASCNHH1693-99-44 13:52:00 Test Item Value Reference Range Interpretation Comments AGAP (test code = AGAP) 14.5 10.0-20.0 N [facility]anoJhrffyjIWICCIYCNC5486-79-18 13:52:00 Test Item Value Reference Range Interpretation Comments MPV (test code = MPV) 12.0 7.4-10.4 H [facility]anoLerfddbNWILRHYLSZ7819-62-66 13:52:00 Test Item Value Reference Range Interpretation Comments Platelet (test code = Platelet) 226 133-450 N [facility]anoWldrrofAKGAYBDGDL5690-53-33 13:52:00 Test Item Value Reference Range Interpretation Comments MCHC (test code = MCHC) 33.7 32.0-36.0 N [facility]anoIgyjpwtQAIYSJZXUK2935-51-71 13:52:00 Test Item Value Reference Range Interpretation Comments MCH (test code = MCH) 28.5 pg 27.0-31.0 N [facility]anoQnveoboKQRGEHIRTE1363-69-74 13:52:00 Test Item Value Reference Range Interpretation Comments RDW (test code = RDW) 15.1 11.5-14.5 H [facility]anoIlnvuqxCJSUTNUAXQ8391-08-91 13:52:00 Test Item Value Reference Range Interpretation Comments MCV (test code = MCV) 84.6 81.0-99.0 N [facility]anoQzlfopcJZRKDRZKYZ6307-38-83 13:52:00 Test Item Value Reference Range Interpretation Comments Hct (test code = Hct) 36.4 36.0-48.0 N [facility]anoIrltdvxOEQLWINSSP7403-89-31 13:52:00 Test Item Value Reference Range Interpretation Comments Hgb (test code = Hgb) 12.3 12.0-16.0 N [place] 140202-03-30 13:52:00 Test Item Value Reference Range Interpretation Comments RBC (test code = RBC) 4.30 4.20-5.40 N [facility]anoNktdttgSQIMORXHYW8885-15-28 13:52:00 Test Item Value Reference Range Interpretation Comments WBC (test code = WBC) 11.7 3.7-10.4 H [facility]anoIyhmemfEQJDDZEZAI4513-14-60 13:52:00 Test Item Value Reference Range Interpretation Comments Monocytes (test code = Monocytes) 2.9 2.0-12.0 N [facility]anoJhdmaubXQOFIHJJPD5385-34-38 13:52:00 Test Item Value Reference Range Interpretation Comments Eosinophils (test code = 0.2 See_Comment N [A utomated message] The Eosinophils) system which ge nerated this result tra nsmitted reference range : <=4.0. The reference r leo was not used to int erpret this result as normal/abnormal . [facility]anoFrrjueuHMETGLSLDR7007-94-36 13:52:00 Test Item Value Reference Range Interpretation Comments Basophils (test code = 0.0 See_Comment N [Aut omated message] The Basophils) system which ge nerated this result tra nsmitted reference range : <=1.0. The reference r leo was not used to int erpret this result as normal/abnormal . [facility]anoFzwzjebYVDHMAZJJF1165-07-70 13:52:00 Test Item Value Reference Range Interpretation Comments Eosinophils # (test code 0.0 See_Comment N [A utomated message] The = Eosinophils #) system whic h generated this result tra nsmitted reference range : <=0.5. The reference r leo was not used to int erpret this result as normal/abnormal . [facility]anoRzizdtsQBWNXFHGMV8977-64-43 13:52:00 Test Item Value Reference Range Interpretation Comments Monocytes # (test code 0.3 See_Comment N [Aut omated message] The = Monocytes #) system which generated this result tra nsmitted reference range : <=0.8. The reference r leo was not used to int erpret this result as normal/abnormal . [facility]anoLiouuheEATCFSJWUF7607-93-64 13:52:00 Test Item Value Reference Range Interpretation Comments Segs (test code = Segs) 92.0 45.0-75.0 H [facility]anoKvlehceWATPPBKSKE3120-06-29 13:52:00 Test Item Value Reference Range Interpretation Comments Lymphocytes (test code = Lymphocytes) 4.9 20.0-40.0 L [facility]anoWnhqflwGPKLNTGMZO7903-54-68 13:52:00 Test Item Value Reference Range Interpretation Comments Spherocyte (test code = Rare A Spherocyte) *ABN*(09/18/2011 08:52:00) [facility]anoNpgtscvIGSJLPEFDH9622-46-36 13:52:00 Test Item Value Reference Range Interpretation Comments Large Plt (test code = Slight *ABN*(09/18/2011 A Large Plt) 08:52:00) [facility]anoSkstclrHUQLVDYOYS3046-48-86 13:52:00 Test Item Value Reference Range Interpretation Comments Microcyte (test code = 1+ *ABN*(09/18/2011 A Microcyte) 08:52:00) [facility]anoIykjqmyCQLNEIZVMK4333-81-20 13:52:00 Test Item Value Reference Range Interpretation Comments Schistocyte (test code = Schistocyte) Rare [facility]anoKahmdtqAJSDPSVYGJ5288-46-42 13:52:00 Test Item Value Reference Range Interpretation Comments Macrocyte (test code = 1+ *ABN*(09/18/2011 A Macrocyte) 08:52:00) [facility]anoAyjmcbcVSUOHISTZX1558-34-76 13:52:00 Test Item Value Reference Range Interpretation Comments Lymphocytes # (test code = Lymphocytes 0.6 1.0-5.5 L #) [facility]anoJlcgahySQCZTLHWDP8343-63-52 13:52:00 Test Item Value Reference Range Interpretation Comments Segs-Bands # (test code = Segs-Bands #) 10.8 1.5-8.1 [facility]orafnbUBUJSVIWUR1081-48-66 13:52:00 Test Item Value Reference Range Interpretation Comments Basophils # (test code 0.0 See_Comment N [Aut omated message] The = Basophils #) system which generated this result tra nsmitted reference range : <=0.2. The reference r leo was not used to int erpret this result as normal/abnormal . [facility]anoRvwprhsLEOWSRKPTK3953-09-83 13:52:00 Test Item Value Reference Range Interpretation Comments Anisocyte (test code = 1+ *ABN*(09/18/2011 A Anisocyte) 08:52:00) [facility]PmzuoidRXZHCQDDOW3965-58-20 13:52:00 Test Item Value Reference Range Interpretation Comments CDC-HIV 1/2 Ab (test Negative *NA*(09/18/2011 code = CDC-HIV 1/2 08:52:00) Ab) [facility] GLUCOSE [id number] 17:34:00 Test Item Value Reference Range Interpretation Comments Gluc POC Lifscn (test code = Gluc POC 215 70-99 H Lifscn) [facility] GLUCOSE [id number] 17:34:00 Test Item Value Reference Range Interpretation Comments Comment1 (test code = Comment1) Notify RN/ [facility] GLUCOSE [id number] 17:34:00 Test Item Value Reference Range Interpretation Comments Gluc POC Lifscn (test code = Gluc POC 215 70-99 H Lifscn) [facility] GLUCOSE XDEIJJL0946-42-63 17:34:00 Test Item Value Reference Range Interpretation Comments Comment1 (test code = Comment1) Notify RN/ [facility] GLUCOSE [id number] 17:34:00 Test Item Value Reference Range Interpretation Comments Gluc POC Lifscn (test code = Gluc POC 215 70-99 H Lifscn) [facility] GLUCOSE MVZPPXG3658-47-26 17:34:00 Test Item Value Reference Range Interpretation Comments Comment1 (test code = Comment1) Notify RN/ [facility] GLUCOSE [id number] 17:34:00 Test Item Value Reference Range Interpretation Comments Gluc POC Lifscn (test code = Gluc POC 215 70-99 H Lifscn) [facility] GLUCOSE [id number] 17:34:00 Test Item Value Reference Range Interpretation Comments Comment1 (test code = Comment1) Notify RN/ [facility] GLUCOSE [id number] 17:34:00 Test Item Value Reference Range Interpretation Comments Gluc POC Lifscn (test code = Gluc POC 215 70-99 H Lifscn) [facility] GLUCOSE [id number] 17:34:00 Test Item Value Reference Range Interpretation Comments Comment1 (test code = Comment1) Notify RN/ [facility] GLUCOSE [id number] 11:43:00 Test Item Value Reference Range Interpretation Comments Comment1 (test code = Comment1) Notify RN/ [facility] GLUCOSE [id number] 11:43:00 Test Item Value Reference Range Interpretation Comments Gluc POC Lifscn (test code = Gluc POC 91 65-110 N Lifscn) [facility] GLUCOSE [id number] 11:43:00 Test Item Value Reference Range Interpretation Comments Comment1 (test code = Comment1) Notify RN/ [facility] GLUCOSE [id number] 11:43:00 Test Item Value Reference Range Interpretation Comments Gluc POC Lifscn (test code = Gluc POC 91 65-110 N Lifscn) [facility] GLUCOSE [id number] 11:43:00 Test Item Value Reference Range Interpretation Comments Comment1 (test code = Comment1) Notify RN/ [facility] GLUCOSE [id number] 11:43:00 Test Item Value Reference Range Interpretation Comments Gluc POC Lifscn (test code = Gluc POC 91 65-110 N Lifscn) [facility] GLUCOSE [id number] 11:43:00 Test Item Value Reference Range Interpretation Comments Comment1 (test code = Comment1) Notify RN/ [facility] GLUCOSE [id number] 11:43:00 Test Item Value Reference Range Interpretation Comments Gluc POC Lifscn (test code = Gluc POC 91 65-110 N Lifscn) [facility] GLUCOSE [id number] 11:43:00 Test Item Value Reference Range Interpretation Comments Comment1 (test code = Comment1) Notify RN/ [facility] GLUCOSE [id number] 11:43:00 Test Item Value Reference Range Interpretation Comments Gluc POC Lifscn (test code = Gluc POC 91 65-110 N Lifscn) [facility] GLUCOSE [id number] 02:45:00 Test Item Value Reference Range Interpretation Comments Comment1 (test code = Comment1) Notify RN/ [facility] GLUCOSE [id number] 02:45:00 Test Item Value Reference Range Interpretation Comments Gluc POC Lifscn (test code = Gluc POC 148 65-110 H Lifscn) [facility] GLUCOSE [id number] 02:45:00 Test Item Value Reference Range Interpretation Comments Comment1 (test code = Comment1) Notify RN/ [facility] GLUCOSE [id number] 02:45:00 Test Item Value Reference Range Interpretation Comments Gluc POC Lifscn (test code = Gluc POC 148 65-110 H Lifscn) [facility] GLUCOSE [id number] 02:45:00 Test Item Value Reference Range Interpretation Comments Comment1 (test code = Comment1) Notify RN/ [facility] GLUCOSE [id number] 02:45:00 Test Item Value Reference Range Interpretation Comments Gluc POC Lifscn (test code = Gluc POC 148 65-110 H Lifscn) [facility] GLUCOSE [id number] 02:45:00 Test Item Value Reference Range Interpretation Comments Comment1 (test code = Comment1) Notify RN/ [facility] GLUCOSE [id number] 02:45:00 Test Item Value Reference Range Interpretation Comments Gluc POC Lifscn (test code = Gluc POC 148 65-110 H Lifscn) [facility] GLUCOSE [id number] 02:45:00 Test Item Value Reference Range Interpretation Comments Comment1 (test code = Comment1) Notify RN/ [facility] GLUCOSE [id number] 02:45:00 Test Item Value Reference Range Interpretation Comments Gluc POC Lifscn (test code = Gluc POC 148 65-110 H Lifscn) [facility] CenterTidkzflWQJUSJAOH0256-04-20 08:47:00 Test Item Value Reference Range Interpretation Comments Sodium Lvl (test code = Sodium Lvl) 143 135-145 N [facility] [facility] CenterSvwtqihZUUSMCGRS2728-56-10 08:47:00 Test Item Value Reference Range Interpretation Comments Glucose Lvl (test code = Glucose Lvl) 105 [facility] CenterBtsjvjyKAWXEPJSH9845-69-45 08:47:00 Test Item Value Reference Range Interpretation Comments CO2 (test code = CO2) 29 24-32 N [facility] CenterGaxfxpbWGVUFIVRJ4781-39-76 08:47:00 Test Item Value Reference Range Interpretation Comments Chloride Lvl (test code = Chloride Lvl) 103 95-109 N [facility] CenterIibnqyrUTTHZVFBN2893-44-82 08:47:00 Test Item Value Reference Range Interpretation Comments BUN (test code = BUN) 10 7-22 N [facility] CenterKkhtcpvBCALYNRYL9774-58-36 08:47:00 Test Item Value Reference Range Interpretation Comments Potassium Lvl (test code = Potassium 3.8 3.5-5.1 N Lvl) [facility] CenterHflwhqhWDOMRKXLB9683-20-67 08:47:00 Test Item Value Reference Range Interpretation Comments Creatinine Lvl (test code = Creatinine 0.6 0.5-1.4 N Lvl) [facility] CenterHgzqjuaOOMTZAMQD1817-07-93 08:47:00 Test Item Value Reference Range Interpretation Comments Calcium Lvl (test code = Calcium Lvl) 8.5 8.5-10.5 N [facility] CenterBoozmftYVDWXUONT8463-74-36 08:47:00 Test Item Value Reference Range Interpretation Comments AGAP (test code = AGAP) 14.8 10.0-20.0 N [facility]OnmgzaeXHSDSOFJRQ8530-16-77 08:47:00 Test Item Value Reference Range Interpretation Comments MCH (test code = MCH) 28.9 pg 27.0-31.0 N [facility]anoDghrxwwJSSBMAQEJV3034-63-54 08:47:00 Test Item Value Reference Range Interpretation Comments MCV (test code = MCV) 82.1 81.0-99.0 N [facility]anoLoqgdghJVTWDBQTCA0775-04-95 08:47:00 Test Item Value Reference Range Interpretation Comments Hct (test code = Hct) 25.9 36.0-48.0 L [facility]anoSloissqVQDUOGKQAZ0475-52-25 08:47:00 Test Item Value Reference Range Interpretation Comments Platelet (test code = Platelet) 233 133-450 N [facility]anoCgliuxhCEGVSIUJYZ2704-42-45 08:47:00 Test Item Value Reference Range Interpretation Comments RDW (test code = RDW) 14.5 11.5-14.5 N [facility]anoYagdlbaNUQIVKLVEF8653-55-58 08:47:00 Test Item Value Reference Range Interpretation Comments MCHC (test code = MCHC) 35.2 32.0-36.0 N [facility]anoCprospbPJQENVLKHS2925-80-45 08:47:00 Test Item Value Reference Range Interpretation Comments Hgb (test code = Hgb) 9.1 12.0-16.0 L [facility]anoTgqmfstUFSZQUWCUY8624-03-93 08:47:00 Test Item Value Reference Range Interpretation Comments RBC (test code = RBC) 3.15 4.20-5.40 L [facility]anoGklrkkcNPLAHVVOCG1874-62-52 08:47:00 Test Item Value Reference Range Interpretation Comments MPV (test code = MPV) 9.0 7.4-10.4 N [facility]anoAakrpxjUWNHQWOUXW4262-25-31 08:47:00 Test Item Value Reference Range Interpretation Comments WBC (test code = WBC) 6.3 3.7-10.4 N [facility]anoWmtuxoxHAXHNVHTZX7907-04-60 08:47:00 Test Item Value Reference Range Interpretation Comments Eosinophils # (test code 0.0 See_Comment N [A utomated message] The = Eosinophils #) system whic h generated this result tra nsmitted reference range : <=0.5. The reference r leo was not used to int erpret this result as normal/abnormal . [facility]anoMylkslaKLFVBHOROR2945-70-43 08:47:00 Test Item Value Reference Range Interpretation Comments Basophils # (test code 0.0 See_Comment N [Aut omated message] The = Basophils #) system which generated this result tra nsmitted reference range : <=0.2. The reference r leo was not used to int erpret this result as normal/abnormal . [facility]anoKocttkuRHKHYJWCOS3155-25-02 08:47:00 Test Item Value Reference Range Interpretation Comments Segs-Bands # (test code = Segs-Bands #) 3.8 1.5-8.1 N [facility]anoYhydplbLUBFYRNSGJ1825-81-44 08:47:00 Test Item Value Reference Range Interpretation Comments Lymphocytes # (test code = Lymphocytes 2.0 1.0-5.5 N #) [facility]anoEyyqmsqYQDDUANTMI6579-22-92 08:47:00 Test Item Value Reference Range Interpretation Comments Basophils (test code = 0.5 See_Comment N [Aut omated message] The Basophils) system which ge nerated this result tra nsmitted reference range : <=1.0. The reference r leo was not used to int erpret this result as normal/abnormal . [facility]anoUrqkdnyZOULBUXXZH4548-16-20 08:47:00 Test Item Value Reference Range Interpretation Comments Eosinophils (test code = 0.7 See_Comment N [A utomated message] The Eosinophils) system which ge nerated this result tra nsmitted reference range : <=4.0. The reference r leo was not used to int erpret this result as normal/abnormal . [facility]anoLfssmziKTVJDPQQVI9125-77-56 08:47:00 Test Item Value Reference Range Interpretation Comments Monocytes (test code = Monocytes) 6.2 2.0-12.0 N [facility]anoWrsfvntESLDWXXBQX9319-16-88 08:47:00 Test Item Value Reference Range Interpretation Comments Segs (test code = Segs) 61.1 45.0-75.0 N [facility]anoLdgmalsTFZQVBXQBX6688-18-86 08:47:00 Test Item Value Reference Range Interpretation Comments Lymphocytes (test code = Lymphocytes) 31.5 20.0-40.0 N [facility]anoRzqlbeeZXATNPJQXH8811-70-16 08:47:00 Test Item Value Reference Range Interpretation Comments Monocytes # (test code 0.4 See_Comment N [Aut omated message] The = Monocytes #) system which generated this result tra nsmitted reference range : <=0.8. The reference r leo was not used to int erpret this result as normal/abnormal . [facility] CenterJkjafhaEAIIZCLQS0078-57-65 08:47:00 Test Item Value Reference Range Interpretation Comments Sodium Lvl (test code = Sodium Lvl) 143 135-145 N [facility] CenterVhssnncAWMCYJPRB8105-31-28 08:47:00 Test Item Value Reference Range Interpretation Comments Glucose Lvl (test code = Glucose Lvl) 105 [facility] CenterVsmkplnWRPBIXXTG9234-23-27 08:47:00 Test Item Value Reference Range Interpretation Comments CO2 (test code = CO2) 29 24-32 N [facility] CenterLpsfcsqHZODAJTOS6111-02-37 08:47:00 Test Item Value Reference Range Interpretation Comments Chloride Lvl (test code = Chloride Lvl) 103 95-109 N [facility] CenterGsikdwmMGVGIBTUX6549-45-81 08:47:00 Test Item Value Reference Range Interpretation Comments BUN (test code = BUN) 10 7-22 N [facility] CenterYpfgsxbLESLXRMVN7177-53-55 08:47:00 Test Item Value Reference Range Interpretation Comments Potassium Lvl (test code = Potassium 3.8 3.5-5.1 N Lvl) [facility] CenterSzlgjicALXYGVKPQ5726-44-19 08:47:00 Test Item Value Reference Range Interpretation Comments Creatinine Lvl (test code = Creatinine 0.6 0.5-1.4 N Lvl) [facility] CenterGcfijmuJINGIRNEM8427-10-44 08:47:00 Test Item Value Reference Range Interpretation Comments Calcium Lvl (test code = Calcium Lvl) 8.5 8.5-10.5 N [facility] CenterQsavdxwLKAQYPXWY9583-80-08 08:47:00 Test Item Value Reference Range Interpretation Comments AGAP (test code = AGAP) 14.8 10.0-20.0 N [facility]anoPcfxxzaZBPQUBPAHN9798-92-87 08:47:00 Test Item Value Reference Range Interpretation Comments MCH (test code = MCH) 28.9 pg 27.0-31.0 N [facility]anoDpnqndqJPGTFQDYXJ3441-90-73 08:47:00 Test Item Value Reference Range Interpretation Comments MCV (test code = MCV) 82.1 81.0-99.0 N [facility]anoDwzoespUOCEVNFTGY3804-57-81 08:47:00 Test Item Value Reference Range Interpretation Comments Hct (test code = Hct) 25.9 36.0-48.0 L [facility]anoZgutnbyVHHJXBOTNC8519-21-32 08:47:00 Test Item Value Reference Range Interpretation Comments Platelet (test code = Platelet) 233 133-450 N [facility]anoBeaspdbKTJADSHTXE7105-56-89 08:47:00 Test Item Value Reference Range Interpretation Comments RDW (test code = RDW) 14.5 11.5-14.5 N [facility]anoLubvzenGOAUBJMOES2016-30-93 08:47:00 Test Item Value Reference Range Interpretation Comments MCHC (test code = MCHC) 35.2 32.0-36.0 N [facility]anoGembwbnUTAWFKGRCQ5235-45-60 08:47:00 Test Item Value Reference Range Interpretation Comments Hgb (test code = Hgb) 9.1 12.0-16.0 L [facility]anoAprbfraAGKJSZPNOH3516-30-59 08:47:00 Test Item Value Reference Range Interpretation Comments RBC (test code = RBC) 3.15 4.20-5.40 L [facility]anoFykhlapUOIIBISJOV1521-52-14 08:47:00 Test Item Value Reference Range Interpretation Comments MPV (test code = MPV) 9.0 7.4-10.4 N [facility]anoTawqsuyXDOWXPJJBJ9800-35-45 08:47:00 Test Item Value Reference Range Interpretation Comments WBC (test code = WBC) 6.3 3.7-10.4 N [facility]anoNhmdqynQQRKEYSTPK9483-27-82 08:47:00 Test Item Value Reference Range Interpretation Comments Eosinophils # (test code 0.0 See_Comment N [A utomated message] The = Eosinophils #) system whic h generated this result tra nsmitted reference range : <=0.5. The reference r leo was not used to int erpret this result as normal/abnormal . [facility]anoTdpdqakULSALXNRET8208-14-86 08:47:00 Test Item Value Reference Range Interpretation Comments Basophils # (test code 0.0 See_Comment N [Aut omated message] The = Basophils #) system which generated this result tra nsmitted reference range : <=0.2. The reference r leo was not used to int erpret this result as normal/abnormal . [facility]anoYoycppcJSRUMTEWLR8229-65-60 08:47:00 Test Item Value Reference Range Interpretation Comments Segs-Bands # (test code = Segs-Bands #) 3.8 1.5-8.1 N [facility]anoDjwkclwUXSVGCZOGO3975-33-94 08:47:00 Test Item Value Reference Range Interpretation Comments Lymphocytes # (test code = Lymphocytes 2.0 1.0-5.5 N #) [facility]anoAglmkuiKWSMHZAAHP8522-44-73 08:47:00 Test Item Value Reference Range Interpretation Comments Basophils (test code = 0.5 See_Comment N [Aut omated message] The Basophils) system which ge nerated this result tra nsmitted reference range : <=1.0. The reference r leo was not used to int erpret this result as normal/abnormal . [facility]anoZoytpkzPXCPLNQLIP5043-22-59 08:47:00 Test Item Value Reference Range Interpretation Comments Eosinophils (test code = 0.7 See_Comment N [A utomated message] The Eosinophils) system which ge nerated this result tra nsmitted reference range : <=4.0. The reference r leo was not used to int erpret this result as normal/abnormal . [facility]anoEbuljceNPVOVUARWC2588-40-55 08:47:00 Test Item Value Reference Range Interpretation Comments Monocytes (test code = Monocytes) 6.2 2.0-12.0 N [facility]anoDqzbovlUPQYUAMPQR0494-60-01 08:47:00 Test Item Value Reference Range Interpretation Comments Segs (test code = Segs) 61.1 45.0-75.0 N [facility]anoNljhhonELXFYLOHUP0869-52-17 08:47:00 Test Item Value Reference Range Interpretation Comments Lymphocytes (test code = Lymphocytes) 31.5 20.0-40.0 N [facility]anoHjrjlkhRIYICPFFPN7742-94-41 08:47:00 Test Item Value Reference Range Interpretation Comments Monocytes # (test code 0.4 See_Comment N [Aut omated message] The = Monocytes #) system which generated this result tra nsmitted reference range : <=0.8. The reference r leo was not used to int erpret this result as normal/abnormal . [facility] CenterGmqmrasVKHIFSTDI4208-00-01 08:47:00 Test Item Value Reference Range Interpretation Comments Sodium Lvl (test code = Sodium Lvl) 143 135-145 N [facility] CenterUilhzwlYYAQKLFPU2529-96-56 08:47:00 Test Item Value Reference Range Interpretation Comments Glucose Lvl (test code = Glucose Lvl) 105 [facility] CenterUgbxxpbGIMYCPMSV6868-25-60 08:47:00 Test Item Value Reference Range Interpretation Comments CO2 (test code = CO2) 29 24-32 N [facility] CenterDjxcquuEBSPYCIFF2762-20-74 08:47:00 Test Item Value Reference Range Interpretation Comments Chloride Lvl (test code = Chloride Lvl) 103 95-109 N [facility] CenterOumjaweKIMKZSKPT1617-53-50 08:47:00 Test Item Value Reference Range Interpretation Comments BUN (test code = BUN) 10 7-22 N [facility] CenterJoazlkiKFQLXQPIA0359-67-66 08:47:00 Test Item Value Reference Range Interpretation Comments Potassium Lvl (test code = Potassium 3.8 3.5-5.1 N Lvl) [facility] CenterCcohfaxCXNVDFISE5991-83-76 08:47:00 Test Item Value Reference Range Interpretation Comments Creatinine Lvl (test code = Creatinine 0.6 0.5-1.4 N Lvl) [facility] CenterLrjxaarDSILSYSJC9113-29-86 08:47:00 Test Item Value Reference Range Interpretation Comments Calcium Lvl (test code = Calcium Lvl) 8.5 8.5-10.5 N [facility] CenterVmfofisSXNJAHRMX8003-24-01 08:47:00 Test Item Value Reference Range Interpretation Comments AGAP (test code = AGAP) 14.8 10.0-20.0 N [facility]anoRiraybxHLRPJXKUDW1603-61-42 08:47:00 Test Item Value Reference Range Interpretation Comments MCH (test code = MCH) 28.9 pg 27.0-31.0 N [facility]anoPlopbyvDNVVAGYLWN8056-20-22 08:47:00 Test Item Value Reference Range Interpretation Comments MCV (test code = MCV) 82.1 81.0-99.0 N [facility]anoUiilocoOCAPLTLBXM9568-01-13 08:47:00 Test Item Value Reference Range Interpretation Comments Hct (test code = Hct) 25.9 36.0-48.0 L [facility]anoPegyraaMIADRMBNJA6415-20-23 08:47:00 Test Item Value Reference Range Interpretation Comments Platelet (test code = Platelet) 233 133-450 N [facility]anoEmxgrxyYMJRUSRVIB9933-72-27 08:47:00 Test Item Value Reference Range Interpretation Comments RDW (test code = RDW) 14.5 11.5-14.5 N [facility]anoPiytndmETTMTXMNLY4214-53-45 08:47:00 Test Item Value Reference Range Interpretation Comments MCHC (test code = MCHC) 35.2 32.0-36.0 N [facility]anoSdbbqakJUOGDZWGTU2988-10-22 08:47:00 Test Item Value Reference Range Interpretation Comments Hgb (test code = Hgb) 9.1 12.0-16.0 L [facility]anoDrcvlchPYITPGIHRC3510-75-81 08:47:00 Test Item Value Reference Range Interpretation Comments RBC (test code = RBC) 3.15 4.20-5.40 L [facility]anoBceicqxOIPPMQUHAF1746-07-53 08:47:00 Test Item Value Reference Range Interpretation Comments MPV (test code = MPV) 9.0 7.4-10.4 N [facility]anoIhuqfloLPAWNXEOKM1713-88-92 08:47:00 Test Item Value Reference Range Interpretation Comments WBC (test code = WBC) 6.3 3.7-10.4 N [facility]anoTxzxmncGWYNBQETOU4469-95-28 08:47:00 Test Item Value Reference Range Interpretation Comments Eosinophils # (test code 0.0 See_Comment N [A utomated message] The = Eosinophils #) system whic h generated this result tra nsmitted reference range : <=0.5. The reference r leo was not used to int erpret this result as normal/abnormal . [facility]anoEblqcllCZHRXYBNYJ2857-25-42 08:47:00 Test Item Value Reference Range Interpretation Comments Basophils # (test code 0.0 See_Comment N [Aut omated message] The = Basophils #) system which generated this result tra nsmitted reference range : <=0.2. The reference r leo was not used to int erpret this result as normal/abnormal . [facility]anoMguctbqKYFKRDAMTP3864-27-38 08:47:00 Test Item Value Reference Range Interpretation Comments Segs-Bands # (test code = Segs-Bands #) 3.8 1.5-8.1 N [facility]anoFcxueqdQNGQRAUNNG6676-20-55 08:47:00 Test Item Value Reference Range Interpretation Comments Lymphocytes # (test code = Lymphocytes 2.0 1.0-5.5 N #) [facility]anoDhfhhfmZUEWKRQAPL8591-18-64 08:47:00 Test Item Value Reference Range Interpretation Comments Basophils (test code = 0.5 See_Comment N [Aut omated message] The Basophils) system which ge nerated this result tra nsmitted reference range : <=1.0. The reference r leo was not used to int erpret this result as normal/abnormal . [facility]anoFkkghtdROPTXOQHLW1626-67-17 08:47:00 Test Item Value Reference Range Interpretation Comments Eosinophils (test code = 0.7 See_Comment N [A utomated message] The Eosinophils) system which ge nerated this result tra nsmitted reference range : <=4.0. The reference r leo was not used to int erpret this result as normal/abnormal . [facility]anoHetzwykKDHBLRYAXK6155-08-09 08:47:00 Test Item Value Reference Range Interpretation Comments Monocytes (test code = Monocytes) 6.2 2.0-12.0 N [facility]anoNyilgufSIIXJNRLAB9910-22-68 08:47:00 Test Item Value Reference Range Interpretation Comments Segs (test code = Segs) 61.1 45.0-75.0 N [facility]anoLrqmikbKZUFXDBZOB4561-12-08 08:47:00 Test Item Value Reference Range Interpretation Comments Lymphocytes (test code = Lymphocytes) 31.5 20.0-40.0 N [facility]anoRvcppkhSOCHBPIGRB8815-52-31 08:47:00 Test Item Value Reference Range Interpretation Comments Monocytes # (test code 0.4 See_Comment N [Aut omated message] The = Monocytes #) system which generated this result tra nsmitted reference range : <=0.8. The reference r leo was not used to int erpret this result as normal/abnormal . [facility] CenterMkmcdbsBUHRLOFYB7006-15-90 08:47:00 Test Item Value Reference Range Interpretation Comments Sodium Lvl (test code = Sodium Lvl) 143 135-145 N [facility] CenterCeqwjhiVIYJQQMZK9215-35-05 08:47:00 Test Item Value Reference Range Interpretation Comments Glucose Lvl (test code = Glucose Lvl) 105 [facility] CenterRgudwtiKPZGHCVCX2866-86-44 08:47:00 Test Item Value Reference Range Interpretation Comments CO2 (test code = CO2) 29 24-32 N [facility] CenterPexpdzbPRVIWJIVK9843-50-61 08:47:00 Test Item Value Reference Range Interpretation Comments Chloride Lvl (test code = Chloride Lvl) 103 95-109 N [facility] CenterIukfsfgJDPBQPWWL6874-17-32 08:47:00 Test Item Value Reference Range Interpretation Comments BUN (test code = BUN) 10 7-22 N [facility] CenterXeqcjvjMGULWZZJY4967-98-05 08:47:00 Test Item Value Reference Range Interpretation Comments Potassium Lvl (test code = Potassium 3.8 3.5-5.1 N Lvl) [facility] CenterLyoimmlIMBGUJQYX1712-16-40 08:47:00 Test Item Value Reference Range Interpretation Comments Creatinine Lvl (test code = Creatinine 0.6 0.5-1.4 N Lvl) [facility] CenterKjhbrwpVTVYVPQDE1098-58-20 08:47:00 Test Item Value Reference Range Interpretation Comments Calcium Lvl (test code = Calcium Lvl) 8.5 8.5-10.5 N [facility]SwygubeHAITIIWHK7568-95-15 08:47:00 Test Item Value Reference Range Interpretation Comments AGAP (test code = AGAP) 14.8 10.0-20.0 N [facility]AniojapFBDWHZCOWU3020-47-31 08:47:00 Test Item Value Reference Range Interpretation Comments MCH (test code = MCH) 28.9 pg 27.0-31.0 N [facility] HospitalIcuthvgJYLUGVCJTS7391-13-92 08:47:00 Test Item Value Reference Range Interpretation Comments MCV (test code = MCV) 82.1 81.0-99.0 N [facility]anoKjwhcnhXZIDDZXPMU9405-04-83 08:47:00 Test Item Value Reference Range Interpretation Comments Hct (test code = Hct) 25.9 36.0-48.0 L [facility]anoVmrbxscKDXPVCOJMJ0184-57-62 08:47:00 Test Item Value Reference Range Interpretation Comments Platelet (test code = Platelet) 233 133-450 N [facility] HospitalTfaawdePKJCVLPZLV0419-14-02 08:47:00 Test Item Value Reference Range Interpretation Comments RDW (test code = RDW) 14.5 11.5-14.5 N [facility]anoUnzpxksKSYNZIKNYT3671-04-06 08:47:00 Test Item Value Reference Range Interpretation Comments MCHC (test code = MCHC) 35.2 32.0-36.0 N [facility]anoVzpkvhvFLNHKSCWCR8200-12-93 08:47:00 Test Item Value Reference Range Interpretation Comments Hgb (test code = Hgb) 9.1 12.0-16.0 L [facility]anoYctczdrMLDHOETQQG8359-78-62 08:47:00 Test Item Value Reference Range Interpretation Comments RBC (test code = RBC) 3.15 4.20-5.40 L [facility]anoFxshvshYICPLSGEZM8990-32-54 08:47:00 Test Item Value Reference Range Interpretation Comments MPV (test code = MPV) 9.0 7.4-10.4 N [facility]anoJjkozhxOWAPPDCVLT1616-53-35 08:47:00 Test Item Value Reference Range Interpretation Comments WBC (test code = WBC) 6.3 3.7-10.4 N [facility]anoMpotabrESMYHOHQNU9395-81-11 08:47:00 Test Item Value Reference Range Interpretation Comments Eosinophils # (test code 0.0 See_Comment N [A utomated message] The = Eosinophils #) system whic h generated this result tra nsmitted reference range : <=0.5. The reference r leo was not used to int erpret this result as normal/abnormal . [facility]anoFcwgwnsLGGETMZKIT0962-20-16 08:47:00 Test Item Value Reference Range Interpretation Comments Basophils # (test code 0.0 See_Comment N [Aut omated message] The = Basophils #) system which generated this result tra nsmitted reference range : <=0.2. The reference r leo was not used to int erpret this result as normal/abnormal . [facility]anoGkkbwdnXZBYLOWZUE2602-80-29 08:47:00 Test Item Value Reference Range Interpretation Comments Segs-Bands # (test code = Segs-Bands #) 3.8 1.5-8.1 N [facility] PlanoZekewidYITTQSEOYU0201-96-41 08:47:00 Test Item Value Reference Range Interpretation Comments Lymphocytes # (test code = Lymphocytes 2.0 1.0-5.5 N #) [facility]anoYhbqpqwRYJHYIPOBR8714-50-30 08:47:00 Test Item Value Reference Range Interpretation Comments Basophils (test code = 0.5 See_Comment N [Aut omated message] The Basophils) system which ge nerated this result tra nsmitted reference range : <=1.0. The reference r leo was not used to int erpret this result as normal/abnormal . [facility]anoHkhnmkzDBGTKFXISJ3265-04-96 08:47:00 Test Item Value Reference Range Interpretation Comments Eosinophils (test code = 0.7 See_Comment N [A utomated message] The Eosinophils) system which ge nerated this result tra nsmitted reference range : <=4.0. The reference r leo was not used to int erpret this result as normal/abnormal . [facility]anoKdshfktSKBNMTJMPC6919-38-06 08:47:00 Test Item Value Reference Range Interpretation Comments Monocytes (test code = Monocytes) 6.2 2.0-12.0 N [facility]anoTmqduswEISEGPBOYL5529-86-83 08:47:00 Test Item Value Reference Range Interpretation Comments Segs (test code = Segs) 61.1 45.0-75.0 N [facility]anoRgtkflwVLURQMHUSU4019-02-77 08:47:00 Test Item Value Reference Range Interpretation Comments Lymphocytes (test code = Lymphocytes) 31.5 20.0-40.0 N [facility]anoGouzfbxRMRTOCWUTZ8123-39-35 08:47:00 Test Item Value Reference Range Interpretation Comments Monocytes # (test code 0.4 See_Comment N [Aut omated message] The = Monocytes #) system which generated this result tra nsmitted reference range : <=0.8. The reference r leo was not used to int erpret this result as normal/abnormal . [facility] CenterVifoojaWKWVQRJTR8982-85-75 08:47:00 Test Item Value Reference Range Interpretation Comments Sodium Lvl (test code = Sodium Lvl) 143 135-145 N The [facility] CenterKlpqndxUTORUTZOE8808-70-68 08:47:00 Test Item Value Reference Range Interpretation Comments Glucose Lvl (test code = Glucose Lvl) 105 [facility] CenterUuxzpclNRBUBIPGD7005-11-13 08:47:00 Test Item Value Reference Range Interpretation Comments CO2 (test code = CO2) 29 24-32 N [facility] CenterFcwprltGRKDXRZQT0855-31-44 08:47:00 Test Item Value Reference Range Interpretation Comments Chloride Lvl (test code = Chloride Lvl) 103 95-109 N [facility] CenterNohnmuvELHGCBZZN8421-45-96 08:47:00 Test Item Value Reference Range Interpretation Comments BUN (test code = BUN) 10 7-22 N [facility] CenterFqqfjwnJTZPFRJAQ3693-13-78 08:47:00 Test Item Value Reference Range Interpretation Comments Potassium Lvl (test code = Potassium 3.8 3.5-5.1 N Lvl) [facility] CenterSstwgytMGFXKUDBE2949-81-49 08:47:00 Test Item Value Reference Range Interpretation Comments Creatinine Lvl (test code = Creatinine 0.6 0.5-1.4 N Lvl) [facility] CenterHeneiotQYVFXOZMM4830-51-44 08:47:00 Test Item Value Reference Range Interpretation Comments Calcium Lvl (test code = Calcium Lvl) 8.5 8.5-10.5 N [facility] CenterJgxbkwlMOVIYCEEG9392-93-03 08:47:00 Test Item Value Reference Range Interpretation Comments AGAP (test code = AGAP) 14.8 10.0-20.0 N [facility]AmjciatVMIHEMGUNQ8492-88-48 08:47:00 Test Item Value Reference Range Interpretation Comments MCH (test code = MCH) 28.9 pg 27.0-31.0 N [facility]anoDhahqbsNBHLHMIGXL3065-84-45 08:47:00 Test Item Value Reference Range Interpretation Comments MCV (test code = MCV) 82.1 81.0-99.0 N [facility]anoPienyikLQDNZEZLZJ6755-93-02 08:47:00 Test Item Value Reference Range Interpretation Comments Hct (test code = Hct) 25.9 36.0-48.0 L [facility]anoKyoqmrjWUEBAMEOUR9648-11-02 08:47:00 Test Item Value Reference Range Interpretation Comments Platelet (test code = Platelet) 233 133-450 N [facility]anoNaxwbftIRRJDWUMIY6173-57-08 08:47:00 Test Item Value Reference Range Interpretation Comments RDW (test code = RDW) 14.5 11.5-14.5 N [facility]anoMcbldibOZPCSVTAYP1028-66-48 08:47:00 Test Item Value Reference Range Interpretation Comments MCHC (test code = MCHC) 35.2 32.0-36.0 N [facility]anoMuaulehXUYRZMPEXU3969-81-95 08:47:00 Test Item Value Reference Range Interpretation Comments Hgb (test code = Hgb) 9.1 12.0-16.0 L [facility]anoGajodoqVOQXGQLOUB3760-84-03 08:47:00 Test Item Value Reference Range Interpretation Comments RBC (test code = RBC) 3.15 4.20-5.40 L [facility]anoDivyvbvSRDDKBYTWA2921-30-15 08:47:00 Test Item Value Reference Range Interpretation Comments MPV (test code = MPV) 9.0 7.4-10.4 N [facility]anoIxuqubgFGIEVKJLES7740-15-73 08:47:00 Test Item Value Reference Range Interpretation Comments WBC (test code = WBC) 6.3 3.7-10.4 N [facility]anoHzszvsjAAUVSXKQXS1907-02-11 08:47:00 Test Item Value Reference Range Interpretation Comments Eosinophils # (test code 0.0 See_Comment N [A utomated message] The = Eosinophils #) system whic h generated this result tra nsmitted reference range : <=0.5. The reference r leo was not used to int erpret this result as normal/abnormal . [facility]anoOlcbznxWWMEZGOWRN6728-25-34 08:47:00 Test Item Value Reference Range Interpretation Comments Basophils # (test code 0.0 See_Comment N [Aut omated message] The = Basophils #) system which generated this result tra nsmitted reference range : <=0.2. The reference r leo was not used to int erpret this result as normal/abnormal . [facility]anoDaljfpoLDWJUYNESF1642-78-31 08:47:00 Test Item Value Reference Range Interpretation Comments Segs-Bands # (test code = Segs-Bands #) 3.8 1.5-8.1 N [facility]anoDiavakkNXELDWXVBW8986-81-35 08:47:00 Test Item Value Reference Range Interpretation Comments Lymphocytes # (test code = Lymphocytes 2.0 1.0-5.5 N #) [facility]anoApnckoiLMYOXMIVZY6423-37-48 08:47:00 Test Item Value Reference Range Interpretation Comments Basophils (test code = 0.5 See_Comment N [Aut omated message] The Basophils) system which ge nerated this result tra nsmitted reference range : <=1.0. The reference r leo was not used to int erpret this result as normal/abnormal . [facility]anoIsnocfzWUNDUNXCPA4296-66-70 08:47:00 Test Item Value Reference Range Interpretation Comments Eosinophils (test code = 0.7 See_Comment N [A utomated message] The Eosinophils) system which ge nerated this result tra nsmitted reference range : <=4.0. The reference r leo was not used to int erpret this result as normal/abnormal . [facility]anoFosxacqMJOEIAPQXW7092-94-36 08:47:00 Test Item Value Reference Range Interpretation Comments Monocytes (test code = Monocytes) 6.2 2.0-12.0 N [facility]anoUfjbhxzIKJHBTKYDQ6726-54-57 08:47:00 Test Item Value Reference Range Interpretation Comments Segs (test code = Segs) 61.1 45.0-75.0 N [facility]anoYsygqxpGMYIDJPRHM1826-12-13 08:47:00 Test Item Value Reference Range Interpretation Comments Lymphocytes (test code = Lymphocytes) 31.5 20.0-40.0 N [facility]anoDhfcwnbSFSDIHUPJQ8900-26-43 08:47:00 Test Item Value Reference Range Interpretation Comments Monocytes # (test code 0.4 See_Comment N [Aut omated message] The = Monocytes #) system which generated this result tra nsmitted reference range : <=0.8. The reference r leo was not used to int erpret this result as normal/abnormal . [facility] CenterDrbrtpyMJYWBGECI3238-98-99 10:54:00 Test Item Value Reference Range Interpretation Comments CO2 (test code = CO2) 27 24-32 N [facility] CenterSfgpkyaDMJFBEDIY2000-49-66 10:54:00 Test Item Value Reference Range Interpretation Comments Chloride Lvl (test code = Chloride Lvl) 104 95-109 N [facility] CenterHdmrvalRRFJREEPE3342-12-06 10:54:00 Test Item Value Reference Range Interpretation Comments Creatinine Lvl (test code = Creatinine 0.5 0.5-1.4 N Lvl) [facility] CenterHjpfvrzJXFNJCWRY5754-60-32 10:54:00 Test Item Value Reference Range Interpretation Comments BUN (test code = BUN) 10 7-22 N [facility] CenterTvgcpwwRAPZZSDIK5717-59-21 10:54:00 Test Item Value Reference Range Interpretation Comments Potassium Lvl (test code = Potassium 4.1 3.5-5.1 N Lvl) [facility] CenterYdufeyhAGCYGORLN7362-87-34 10:54:00 Test Item Value Reference Range Interpretation Comments Sodium Lvl (test code = Sodium Lvl) 141 135-145 N [facility] CenterEuakcjyBMMMGVEVH7784-50-02 10:54:00 Test Item Value Reference Range Interpretation Comments Glucose Lvl (test code = Glucose Lvl) 83 [facility] CenterPinosglCVWKYVHPP2154-61-67 10:54:00 Test Item Value Reference Range Interpretation Comments Calcium Lvl (test code = Calcium Lvl) 8.4 8.5-10.5 L [facility] CenterXgvejzrGPYLGXQAE6590-27-95 10:54:00 Test Item Value Reference Range Interpretation Comments AGAP (test code = AGAP) 14.1 10.0-20.0 N [facility]anoMiapiraMHMMATSNXU1153-49-35 10:54:00 Test Item Value Reference Range Interpretation Comments Hct (test code = Hct) 35.5 36.0-48.0 L [facility]anoVvikombRLLEXGDJDS1171-16-16 10:54:00 Test Item Value Reference Range Interpretation Comments WBC (test code = WBC) 4.7 3.7-10.4 N [facility]anoNnouxjzEFFVCSWEIY2564-60-35 10:54:00 Test Item Value Reference Range Interpretation Comments MCV (test code = MCV) 92.6 81.0-99.0 N [facility]anoGhewuqxGXDHUJFTTY7111-91-75 10:54:00 Test Item Value Reference Range Interpretation Comments MCH (test code = MCH) 31.4 pg 27.0-31.0 H [facility]anoQwmgacbAPOFSGEYWC4466-07-90 10:54:00 Test Item Value Reference Range Interpretation Comments RBC (test code = RBC) 3.84 4.20-5.40 L [facility]anoVjgsmlnMOBYXFSVIT5383-53-48 10:54:00 Test Item Value Reference Range Interpretation Comments Hgb (test code = Hgb) 12.1 12.0-16.0 N [facility]anoQngekmiTDBJDHQCWO9352-47-26 10:54:00 Test Item Value Reference Range Interpretation Comments Platelet (test code = Platelet) 287 133-450 N [facility]anoXakvfueSCJXEWEUCJ3905-35-25 10:54:00 Test Item Value Reference Range Interpretation Comments RDW (test code = RDW) 12.7 11.5-14.5 N [facility]anoCcivlecJWDTXOFWGI8923-98-23 10:54:00 Test Item Value Reference Range Interpretation Comments MCHC (test code = MCHC) 33.9 32.0-36.0 N [facility]anoJwdkhugLLXCPMEIAI1631-32-44 10:54:00 Test Item Value Reference Range Interpretation Comments MPV (test code = MPV) 7.2 7.4-10.4 L [facility]anoGnevdmrWJYOKTJKTW4433-40-55 10:54:00 Test Item Value Reference Range Interpretation Comments INR (test code = INR) 0.95 0.85-1.17 N [facility]anoUtmcbgtHQTLHDWNES7702-98-94 10:54:00 Test Item Value Reference Range Interpretation Comments PT (test code = PT) 12.7 s 12.0-14.7 N [facility]anoTaeypddMZCIIZMIDQ5227-04-59 10:54:00 Test Item Value Reference Range Interpretation Comments PTT (test code = PTT) 28.5 s 22.9-35.8 N [facility]anoBvmrlcyIONIJPEJBN4484-06-66 10:54:00 Test Item Value Reference Range Interpretation Comments Eosinophils # (test code 0.1 See_Comment N [A utomated message] The = Eosinophils #) system whic h generated this result tra nsmitted reference range : <=0.5. The reference r leo was not used to int erpret this result as normal/abnormal . [facility]anoPsgwyioISFJVERLCO1702-28-18 10:54:00 Test Item Value Reference Range Interpretation Comments Basophils # (test code 0.0 See_Comment N [Aut omated message] The = Basophils #) system which generated this result tra nsmitted reference range : <=0.2. The reference r leo was not used to int erpret this result as normal/abnormal . [facility]anoYayzxwfRCCNLQCMVV8528-91-17 10:54:00 Test Item Value Reference Range Interpretation Comments Basophils (test code = 0.4 See_Comment N [Aut omated message] The Basophils) system which ge nerated this result tra nsmitted reference range : <=1.0. The reference r leo was not used to int erpret this result as normal/abnormal . [facility]anoXqnmoexMGTSBDOIYD4171-41-50 10:54:00 Test Item Value Reference Range Interpretation Comments Segs-Bands # (test code = Segs-Bands #) 2.1 1.5-8.1 N [facility]anoTokilmbCLILDWZJUY5411-54-24 10:54:00 Test Item Value Reference Range Interpretation Comments Monocytes (test code = Monocytes) 9.0 2.0-12.0 N [facility]anoSbbxrtlLXMAJUVVIG1468-13-38 10:54:00 Test Item Value Reference Range Interpretation Comments Eosinophils (test code = 2.4 See_Comment N [A utomated message] The Eosinophils) system which ge nerated this result tra nsmitted reference range : <=4.0. The reference r leo was not used to int erpret this result as normal/abnormal . [facility]anoBdrwywsGECSFKOYHG3450-86-68 10:54:00 Test Item Value Reference Range Interpretation Comments Monocytes # (test code 0.4 See_Comment N [Aut omated message] The = Monocytes #) system which generated this result tra nsmitted reference range : <=0.8. The reference r leo was not used to int erpret this result as normal/abnormal . [facility]anoVmuhexmXHYANGHNYA7768-07-20 10:54:00 Test Item Value Reference Range Interpretation Comments Lymphocytes # (test code = Lymphocytes 2.0 1.0-5.5 N #) [facility]anoIffvnloZCFTGQDCKT1743-45-10 10:54:00 Test Item Value Reference Range Interpretation Comments Lymphocytes (test code = Lymphocytes) 42.8 20.0-40.0 H [facility]anoPflupfsYXTTLWTPTA1711-73-37 10:54:00 Test Item Value Reference Range Interpretation Comments Segs (test code = Segs) 45.4 45.0-75.0 N [facility] CenterGdihhhlLPSKWNXJF3436-86-02 10:54:00 Test Item Value Reference Range Interpretation Comments CO2 (test code = CO2) 27 24-32 N [facility] CenterMtgyfqfEBSDAODFE3649-12-31 10:54:00 Test Item Value Reference Range Interpretation Comments Chloride Lvl (test code = Chloride Lvl) 104 95-109 N [facility] CenterZizirwrSTPIFJOTH1985-09-21 10:54:00 Test Item Value Reference Range Interpretation Comments Creatinine Lvl (test code = Creatinine 0.5 0.5-1.4 N Lvl) [facility] CenterEuintbeYAYJHPWGS5227-34-61 10:54:00 Test Item Value Reference Range Interpretation Comments BUN (test code = BUN) 10 7-22 N [facility] CenterOafcfwkKRDEUNSNL1685-64-70 10:54:00 Test Item Value Reference Range Interpretation Comments Potassium Lvl (test code = Potassium 4.1 3.5-5.1 N Lvl) [facility] CenterGjnbotnJBBFUIRMJ0379-73-02 10:54:00 Test Item Value Reference Range Interpretation Comments Sodium Lvl (test code = Sodium Lvl) 141 135-145 N [facility] CenterWzctdrxBOULWPBGN9825-07-74 10:54:00 Test Item Value Reference Range Interpretation Comments Glucose Lvl (test code = Glucose Lvl) 83 [facility] CenterHkcnejqZDGLUTWZP1485-00-66 10:54:00 Test Item Value Reference Range Interpretation Comments Calcium Lvl (test code = Calcium Lvl) 8.4 8.5-10.5 L [facility] CenterWhwpyjuELBIDGRLW5896-02-27 10:54:00 Test Item Value Reference Range Interpretation Comments AGAP (test code = AGAP) 14.1 10.0-20.0 N [facility]anoRudgemvWNXHIPJJWF2117-59-31 10:54:00 Test Item Value Reference Range Interpretation Comments Hct (test code = Hct) 35.5 36.0-48.0 L [facility]anoDqhxzslBVRFQPTYTK4024-59-31 10:54:00 Test Item Value Reference Range Interpretation Comments WBC (test code = WBC) 4.7 3.7-10.4 N [facility]anoNmyqhvgRRGRMSTWOP8312-46-45 10:54:00 Test Item Value Reference Range Interpretation Comments MCV (test code = MCV) 92.6 81.0-99.0 N [facility]anoJrmiyhpMOGDCFBYPV3703-08-87 10:54:00 Test Item Value Reference Range Interpretation Comments MCH (test code = MCH) 31.4 pg 27.0-31.0 H [facility]anoDhlgbwtTYQRUXSRJW0270-21-70 10:54:00 Test Item Value Reference Range Interpretation Comments RBC (test code = RBC) 3.84 4.20-5.40 L [facility]anoYqgwtofNEAVCDDFUY2779-54-12 10:54:00 Test Item Value Reference Range Interpretation Comments Hgb (test code = Hgb) 12.1 12.0-16.0 N [facility]anoZegtzbxUCSECVUGXG3448-81-85 10:54:00 Test Item Value Reference Range Interpretation Comments Platelet (test code = Platelet) 287 133-450 N [facility]anoOukalcwWLEPEICRYF2962-67-93 10:54:00 Test Item Value Reference Range Interpretation Comments RDW (test code = RDW) 12.7 11.5-14.5 N [facility]anoBabwshnFAADINHISS3486-66-67 10:54:00 Test Item Value Reference Range Interpretation Comments MCHC (test code = MCHC) 33.9 32.0-36.0 N [facility]anoXrrhusaHMIVZQBESS8995-45-59 10:54:00 Test Item Value Reference Range Interpretation Comments MPV (test code = MPV) 7.2 7.4-10.4 [facility]2012-03-19 10:54:00 Test Item Value Reference Range Interpretation Comments INR (test code = INR) 0.95 0.85-1.17 N [facility]anoMdqznmvYRDHSJBYVS3888-54-78 10:54:00 Test Item Value Reference Range Interpretation Comments PT (test code = PT) 12.7 s 12.0-14.7 N [facility]anoGuxzmttXNBJUARDTJ3824-18-67 10:54:00 Test Item Value Reference Range Interpretation Comments PTT (test code = PTT) 28.5 s 22.9-35.8 N [facility]anoKhwzwdyTQINEHYDCE0301-36-85 10:54:00 Test Item Value Reference Range Interpretation Comments Eosinophils # (test code 0.1 See_Comment N [A utomated message] The = Eosinophils #) system whic h generated this result tra nsmitted reference range : <=0.5. The reference r leo was not used to int erpret this result as normal/abnormal . [facility]anoOlzekpvNODBTKFBWO5931-27-93 10:54:00 Test Item Value Reference Range Interpretation Comments Basophils # (test code 0.0 See_Comment N [Aut omated message] The = Basophils #) system which generated this result tra nsmitted reference range : <=0.2. The reference r leo was not used to int erpret this result as normal/abnormal . [facility]anoJuatdzzUAINCBWNRS3519-17-57 10:54:00 Test Item Value Reference Range Interpretation Comments Basophils (test code = 0.4 See_Comment N [Aut omated message] The Basophils) system which ge nerated this result tra nsmitted reference range : <=1.0. The reference r leo was not used to int erpret this result as normal/abnormal . [facility]anoJxivklyTADZAXQYKN0117-21-24 10:54:00 Test Item Value Reference Range Interpretation Comments Segs-Bands # (test code = Segs-Bands #) 2.1 1.5-8.1 N [facility]anoQnnhjlnKILDJKVWZA5271-36-32 10:54:00 Test Item Value Reference Range Interpretation Comments Monocytes (test code = Monocytes) 9.0 2.0-12.0 N [facility]anoJilojwsMBFXJCMGWA9498-78-35 10:54:00 Test Item Value Reference Range Interpretation Comments Eosinophils (test code = 2.4 See_Comment N [A utomated message] The Eosinophils) system which ge nerated this result tra nsmitted reference range : <=4.0. The reference r leo was not used to int erpret this result as normal/abnormal . [facility]anoKvodhigCSXKURRAGO6635-82-94 10:54:00 Test Item Value Reference Range Interpretation Comments Monocytes # (test code 0.4 See_Comment N [Aut omated message] The = Monocytes #) system which generated this result tra nsmitted reference range : <=0.8. The reference r leo was not used to int erpret this result as normal/abnormal . [facility]anoTgwyjvcXTLZNMWIHH2297-25-41 10:54:00 Test Item Value Reference Range Interpretation Comments Lymphocytes # (test code = Lymphocytes 2.0 1.0-5.5 N #) [facility]anoQduafndLHOXGBFKWJ5091-69-14 10:54:00 Test Item Value Reference Range Interpretation Comments Lymphocytes (test code = Lymphocytes) 42.8 20.0-40.0 H [facility] PlanoZlteybvKDINCQKXGQ1078-31-27 10:54:00 Test Item Value Reference Range Interpretation Comments Segs (test code = Segs) 45.4 45.0-75.0 N [facility] CenterFpvthkwZLZJJIZPR9178-85-76 10:54:00 Test Item Value Reference Range Interpretation Comments CO2 (test code = CO2) 27 24-32 N [facility] CenterUpsxntmDMQIAYSDR3183-43-86 10:54:00 Test Item Value Reference Range Interpretation Comments Chloride Lvl (test code = Chloride Lvl) 104 95-109 N [facility] CenterZbbocotJDLSMNUGB7253-67-31 10:54:00 Test Item Value Reference Range Interpretation Comments Creatinine Lvl (test code = Creatinine 0.5 0.5-1.4 N Lvl) [facility] CenterQzwsypwDCNIGTWBX0935-46-44 10:54:00 Test Item Value Reference Range Interpretation Comments BUN (test code = BUN) 10 7-22 N [facility] CenterVjspbydMZORZORXY4997-21-40 10:54:00 Test Item Value Reference Range Interpretation Comments Potassium Lvl (test code = Potassium 4.1 3.5-5.1 N Lvl) [facility] CenterKievzizFVASSNFVE5139-78-96 10:54:00 Test Item Value Reference Range Interpretation Comments Sodium Lvl (test code = Sodium Lvl) 141 135-145 N [facility] CenterTvucnwgWMQKOTBFL3786-85-50 10:54:00 Test Item Value Reference Range Interpretation Comments Glucose Lvl (test code = Glucose Lvl) 83 [facility] CenterRvlcpzqFYXITJQJC2489-18-00 10:54:00 Test Item Value Reference Range Interpretation Comments Calcium Lvl (test code = Calcium Lvl) 8.4 8.5-10.5 L [facility] CenterZmkcuooEJXQAXHRY4692-54-04 10:54:00 Test Item Value Reference Range Interpretation Comments AGAP (test code = AGAP) 14.1 10.0-20.0 N [facility]anoMrkhuulNSRVNOENEW2899-96-31 10:54:00 Test Item Value Reference Range Interpretation Comments Hct (test code = Hct) 35.5 36.0-48.0 L [facility]anoHqjxxcrNXMKRARYLR4823-28-76 10:54:00 Test Item Value Reference Range Interpretation Comments WBC (test code = WBC) 4.7 3.7-10.4 N [facility] PlanoBpkidneFCGEXSFDAX7547-00-03 10:54:00 Test Item Value Reference Range Interpretation Comments MCV (test code = MCV) 92.6 81.0-99.0 N [facility] PlanoBqnonwvWKPYEXIMPA8195-09-69 10:54:00 Test Item Value Reference Range Interpretation Comments MCH (test code = MCH) 31.4 pg 27.0-31.0 H [facility]anoYjogphiOEAUEYXABO2603-98-96 10:54:00 Test Item Value Reference Range Interpretation Comments RBC (test code = RBC) 3.84 4.20-5.40 L [facility] PlanoDpreonoYZBJLFEQDS3415-26-05 10:54:00 Test Item Value Reference Range Interpretation Comments Hgb (test code = Hgb) 12.1 12.0-16.0 N [facility]anoHxvjfgaTCXPNQJAOY0161-99-47 10:54:00 Test Item Value Reference Range Interpretation Comments Platelet (test code = Platelet) 287 133-450 N [facility]anoEjoarhdGSUQDSYSKF0731-97-72 10:54:00 Test Item Value Reference Range Interpretation Comments RDW (test code = RDW) 12.7 11.5-14.5 N [facility]anoGgiyvibQVCNWWXJWN5359-08-27 10:54:00 Test Item Value Reference Range Interpretation Comments MCHC (test code = MCHC) 33.9 32.0-36.0 N [facility]anoTblljfjLNQNTAETZW8882-92-91 10:54:00 Test Item Value Reference Range Interpretation Comments MPV (test code = MPV) 7.2 7.4-10.4 L [facility]anoOlimawdFPQESKFTGF6508-47-92 10:54:00 Test Item Value Reference Range Interpretation Comments INR (test code = INR) 0.95 0.85-1.17 N [facility]anoJonxzpuHCNAQMIYUN7012-93-93 10:54:00 Test Item Value Reference Range Interpretation Comments PT (test code = PT) 12.7 s 12.0-14.7 N [facility]anoAcculrlNYSDXOIORQ0671-24-44 10:54:00 Test Item Value Reference Range Interpretation Comments PTT (test code = PTT) 28.5 s 22.9-35.8 N [facility] PlanoNalunotDEAOZNCAFZ3471-93-03 10:54:00 Test Item Value Reference Range Interpretation Comments Eosinophils # (test code 0.1 See_Comment N [A utomated message] The = Eosinophils #) system whic h generated this result tra nsmitted reference range : <=0.5. The reference r leo was not used to int erpret this result as normal/abnormal . [facility] PlanoFlwlxlyIFEMQIGKWZ9058-72-14 10:54:00 Test Item Value Reference Range Interpretation Comments Basophils # (test code 0.0 See_Comment N [Aut omated message] The = Basophils #) system which generated this result tra nsmitted reference range : <=0.2. The reference r leo was not used to int erpret this result as normal/abnormal . [facility]anoVfmhdwbWBKJQFCNUF6315-68-47 10:54:00 Test Item Value Reference Range Interpretation Comments Basophils (test code = 0.4 See_Comment N [Aut omated message] The Basophils) system which ge nerated this result tra nsmitted reference range : <=1.0. The reference r leo was not used to int erpret this result as normal/abnormal . [facility]anoPihoaybAYPQOZCCCG1624-02-10 10:54:00 Test Item Value Reference Range Interpretation Comments Segs-Bands # (test code = Segs-Bands #) 2.1 1.5-8.1 N [facility]anoMhccisnRBFKTEMCXY6659-74-09 10:54:00 Test Item Value Reference Range Interpretation Comments Monocytes (test code = Monocytes) 9.0 2.0-12.0 N [facility]TwjygucIKKYZCTOSJ7341-60-12 10:54:00 Test Item Value Reference Range Interpretation Comments Eosinophils (test code = 2.4 See_Comment N [A utomated message] The Eosinophils) system which ge nerated this result tra nsmitted reference range : <=4.0. The reference r leo was not used to int erpret this result as normal/abnormal . [facility]anoQxcifklRILDJJSXMP8887-58-08 10:54:00 Test Item Value Reference Range Interpretation Comments Monocytes # (test code 0.4 See_Comment N [Aut omated message] The = Monocytes #) system which generated this result tra nsmitted reference range : <=0.8. The reference r leo was not used to int erpret this result as normal/abnormal . [facility]anoVbflwmsWZZOEWYVUO7297-43-32 10:54:00 Test Item Value Reference Range Interpretation Comments Lymphocytes # (test code = Lymphocytes 2.0 1.0-5.5 N #) [facility]anoYdwcadpNRDQAGCHFF1014-12-27 10:54:00 Test Item Value Reference Range Interpretation Comments Lymphocytes (test code = Lymphocytes) 42.8 20.0-40.0 H [facility]anoJakagzcXQNAYHVJAY3923-54-39 10:54:00 Test Item Value Reference Range Interpretation Comments Segs (test code = Segs) 45.4 45.0-75.0 N [facility] CenterQvqstskRQWTHQIQU7328-28-81 10:54:00 Test Item Value Reference Range Interpretation Comments CO2 (test code = CO2) 27 24-32 N [facility] CenterJqgkuzuBJTNGQMEN5751-79-91 10:54:00 Test Item Value Reference Range Interpretation Comments Chloride Lvl (test code = Chloride Lvl) 104 95-109 N [facility] CenterHwmjynkEOEYYHAPY9954-06-80 10:54:00 Test Item Value Reference Range Interpretation Comments Creatinine Lvl (test code = Creatinine 0.5 0.5-1.4 N Lvl) [facility] CenterJysgaxfCDENIXCRN5800-40-00 10:54:00 Test Item Value Reference Range Interpretation Comments BUN (test code = BUN) 10 7-22 N [facility] CenterPwxcrfoABVOZQXZZ0884-10-57 10:54:00 Test Item Value Reference Range Interpretation Comments Potassium Lvl (test code = Potassium 4.1 3.5-5.1 N Lvl) [facility] CenterSojglaiTLLUYOBVJ9804-14-15 10:54:00 Test Item Value Reference Range Interpretation Comments Sodium Lvl (test code = Sodium Lvl) 141 135-145 N [facility] CenterVdwcjbxDZTTUMRSP9959-97-95 10:54:00 Test Item Value Reference Range Interpretation Comments Glucose Lvl (test code = Glucose Lvl) 83 [facility] CenterUevipgpUWQTBDXKQ7342-50-94 10:54:00 Test Item Value Reference Range Interpretation Comments Calcium Lvl (test code = Calcium Lvl) 8.4 8.5-10.5 L [facility] CenterVzrywtgDNKMSYVIT2306-74-60 10:54:00 Test Item Value Reference Range Interpretation Comments AGAP (test code = AGAP) 14.1 10.0-20.0 N [facility]anoFwcjlzsIOYTBUTAID4377-41-78 10:54:00 Test Item Value Reference Range Interpretation Comments Hct (test code = Hct) 35.5 36.0-48.0 L [facility]anoChcazmxIUYLWOZQCT0794-76-79 10:54:00 Test Item Value Reference Range Interpretation Comments WBC (test code = WBC) 4.7 3.7-10.4 N [facility]anoYyuvwmoNQBWZCAHYS7280-70-74 10:54:00 Test Item Value Reference Range Interpretation Comments MCV (test code = MCV) 92.6 81.0-99.0 N [facility]anoRsnaukoPIKZYSDEYH3352-97-18 10:54:00 Test Item Value Reference Range Interpretation Comments MCH (test code = MCH) 31.4 pg 27.0-31.0 H [facility]anoOxavijrMHBPCAEEWD7633-22-55 10:54:00 Test Item Value Reference Range Interpretation Comments RBC (test code = RBC) 3.84 4.20-5.40 L [facility]anoVaimxicFSMPTBUCAR8233-36-40 10:54:00 Test Item Value Reference Range Interpretation Comments Hgb (test code = Hgb) 12.1 12.0-16.0 N [facility]anoPewtfvvULQLWTTHAU3691-42-52 10:54:00 Test Item Value Reference Range Interpretation Comments Platelet (test code = Platelet) 287 133-450 N [facility]anoFqqorazJZCVFXVEEO2302-62-13 10:54:00 Test Item Value Reference Range Interpretation Comments RDW (test code = RDW) 12.7 11.5-14.5 N [facility]anoDxmblmvCPKWDVKUEM0475-18-36 10:54:00 Test Item Value Reference Range Interpretation Comments MCHC (test code = MCHC) 33.9 32.0-36.0 N [facility]anoLynflzdCQHLWYDKWU5892-61-23 10:54:00 Test Item Value Reference Range Interpretation Comments MPV (test code = MPV) 7.2 7.4-10.4 [facility]2012-03-19 10:54:00 Test Item Value Reference Range Interpretation Comments INR (test code = INR) 0.95 0.85-1.17 N [facility]anoAakenwxBROPIGIVXY7438-25-93 10:54:00 Test Item Value Reference Range Interpretation Comments PT (test code = PT) 12.7 s 12.0-14.7 N [facility]anoOciuuehMMIBVENFIT4319-55-40 10:54:00 Test Item Value Reference Range Interpretation Comments PTT (test code = PTT) 28.5 s 22.9-35.8 N [facility]anoQcyecffQTYBHFPKMI0800-13-47 10:54:00 Test Item Value Reference Range Interpretation Comments Eosinophils # (test code 0.1 See_Comment N [A utomated message] The = Eosinophils #) system whic h generated this result tra nsmitted reference range : <=0.5. The reference r leo was not used to int erpret this result as normal/abnormal . [facility]anoWecxuseAIBGHGUIQD3263-35-47 10:54:00 Test Item Value Reference Range Interpretation Comments Basophils # (test code 0.0 See_Comment N [Aut omated message] The = Basophils #) system which generated this result tra nsmitted reference range : <=0.2. The reference r leo was not used to int erpret this result as normal/abnormal . [facility]anoCldvyobKCQWFEQFDN1754-63-63 10:54:00 Test Item Value Reference Range Interpretation Comments Basophils (test code = 0.4 See_Comment N [Aut omated message] The Basophils) system which ge nerated this result tra nsmitted reference range : <=1.0. The reference r leo was not used to int erpret this result as normal/abnormal . [facility]anoOoiawvuERUERALASG7991-61-69 10:54:00 Test Item Value Reference Range Interpretation Comments Segs-Bands # (test code = Segs-Bands #) 2.1 1.5-8.1 N [facility]anoQhuzdqgOGOLHAXMSY3368-22-61 10:54:00 Test Item Value Reference Range Interpretation Comments Monocytes (test code = Monocytes) 9.0 2.0-12.0 N [facility]anoJldmhwcVUZOVTQVJH1222-12-04 10:54:00 Test Item Value Reference Range Interpretation Comments Eosinophils (test code = 2.4 See_Comment N [A utomated message] The Eosinophils) system which ge nerated this result tra nsmitted reference range : <=4.0. The reference r leo was not used to int erpret this result as normal/abnormal . [facility]anoYklemobQMZXPPKGMT6384-21-94 10:54:00 Test Item Value Reference Range Interpretation Comments Monocytes # (test code 0.4 See_Comment N [Aut omated message] The = Monocytes #) system which generated this result tra nsmitted reference range : <=0.8. The reference r leo was not used to int erpret this result as normal/abnormal . [facility]anoKozjlgcUHFKJQOWOU2250-07-12 10:54:00 Test Item Value Reference Range Interpretation Comments Lymphocytes # (test code = Lymphocytes 2.0 1.0-5.5 N #) [facility]anoRcfivrkDZQIOJHWZF1838-87-63 10:54:00 Test Item Value Reference Range Interpretation Comments Lymphocytes (test code = Lymphocytes) 42.8 20.0-40.0 H [facility]anoBctpcrdJZDOIBOWJH9446-70-28 10:54:00 Test Item Value Reference Range Interpretation Comments Segs (test code = Segs) 45.4 45.0-75.0 N [facility] CenterPziwlmbDHKLJRZDU2502-02-24 10:54:00 Test Item Value Reference Range Interpretation Comments CO2 (test code = CO2) 27 24-32 N [facility] CenterHkpazecNKWAHHROG7507-70-62 10:54:00 Test Item Value Reference Range Interpretation Comments Chloride Lvl (test code = Chloride Lvl) 104 95-109 N [facility] CenterBbsshxpSQZIRSMVN9566-29-82 10:54:00 Test Item Value Reference Range Interpretation Comments Creatinine Lvl (test code = Creatinine 0.5 0.5-1.4 N Lvl) [facility] CenterNfwysvoHNQEPGDJV8139-00-72 10:54:00 Test Item Value Reference Range Interpretation Comments BUN (test code = BUN) 10 7-22 N [facility] CenterKkzsoafMFOVFIJOI2414-69-72 10:54:00 Test Item Value Reference Range Interpretation Comments Potassium Lvl (test code = Potassium 4.1 3.5-5.1 N Lvl) [facility] CenterRrgeeipJUATRHIGH0506-50-56 10:54:00 Test Item Value Reference Range Interpretation Comments Sodium Lvl (test code = Sodium Lvl) 141 135-145 N [facility] CenterSvpksewUVWQTKGUO3699-74-96 10:54:00 Test Item Value Reference Range Interpretation Comments Glucose Lvl (test code = Glucose Lvl) 83 [facility] CenterLvuzlsmOEAFXLJFB8034-63-20 10:54:00 Test Item Value Reference Range Interpretation Comments Calcium Lvl (test code = Calcium Lvl) 8.4 8.5-10.5 L [facility] CenterLlhsftaMPPOZNZBT3883-77-03 10:54:00 Test Item Value Reference Range Interpretation Comments AGAP (test code = AGAP) 14.1 10.0-20.0 N [facility]anoYlvblfjTGHPMRUBRD5484-07-02 10:54:00 Test Item Value Reference Range Interpretation Comments Hct (test code = Hct) 35.5 36.0-48.0 L [facility]anoShjqjojCRZTHVQKGL3902-42-15 10:54:00 Test Item Value Reference Range Interpretation Comments WBC (test code = WBC) 4.7 3.7-10.4 N [facility]anoPjtncsfGADAQBCIYB4769-44-57 10:54:00 Test Item Value Reference Range Interpretation Comments MCV (test code = MCV) 92.6 81.0-99.0 N [facility]anoEbtftwoGDFCBGGNQN1408-39-58 10:54:00 Test Item Value Reference Range Interpretation Comments MCH (test code = MCH) 31.4 pg 27.0-31.0 H [facility]anoOcffuydVJAELDUBYT5121-96-22 10:54:00 Test Item Value Reference Range Interpretation Comments RBC (test code = RBC) 3.84 4.20-5.40 L [facility]anoLfpojfpJYSWMVYBYM1493-43-53 10:54:00 Test Item Value Reference Range Interpretation Comments Hgb (test code = Hgb) 12.1 12.0-16.0 N [facility]anoQfsznguUSLTIGFGPK1144-01-76 10:54:00 Test Item Value Reference Range Interpretation Comments Platelet (test code = Platelet) 287 133-450 N [facility]anoKmskqwtSMHWRWGORP7871-10-80 10:54:00 Test Item Value Reference Range Interpretation Comments RDW (test code = RDW) 12.7 11.5-14.5 N [facility]anoBifycbjMMRGAYSUSG5089-06-40 10:54:00 Test Item Value Reference Range Interpretation Comments MCHC (test code = MCHC) 33.9 32.0-36.0 N [facility]anoLqgdrgyMBWCNAZRKS3466-85-18 10:54:00 Test Item Value Reference Range Interpretation Comments MPV (test code = MPV) 7.2 7.4-10.4 L [facility]anoRyywwgzVSDRVDKBPK1496-22-66 10:54:00 Test Item Value Reference Range Interpretation Comments INR (test code = INR) 0.95 0.85-1.17 N [facility]anoLveuidyGHILDNWUHK4865-80-25 10:54:00 Test Item Value Reference Range Interpretation Comments PT (test code = PT) 12.7 s 12.0-14.7 N [facility]anoRxlsnvdUYDXKGAQIC6787-46-77 10:54:00 Test Item Value Reference Range Interpretation Comments PTT (test code = PTT) 28.5 s 22.9-35.8 N [facility]anoHsykakwFDTJEQVXIA3439-91-41 10:54:00 Test Item Value Reference Range Interpretation Comments Eosinophils # (test code 0.1 See_Comment N [A utomated message] The = Eosinophils #) system whic h generated this result tra nsmitted reference range : <=0.5. The reference r leo was not used to int erpret this result as normal/abnormal . [facility]anoOzzojtkXWWIGMKDXN4240-06-71 10:54:00 Test Item Value Reference Range Interpretation Comments Basophils # (test code 0.0 See_Comment N [Aut omated message] The = Basophils #) system which generated this result tra nsmitted reference range : <=0.2. The reference r leo was not used to int erpret this result as normal/abnormal . [facility]anoUsmfecgSJLYTNIUPQ2411-95-15 10:54:00 Test Item Value Reference Range Interpretation Comments Basophils (test code = 0.4 See_Comment N [Aut omated message] The Basophils) system which ge nerated this result tra nsmitted reference range : <=1.0. The reference r leo was not used to int erpret this result as normal/abnormal . [facility]anoZiuyhqwEYHFQERSFB8632-49-50 10:54:00 Test Item Value Reference Range Interpretation Comments Segs-Bands # (test code = Segs-Bands #) 2.1 1.5-8.1 N [facility]anoZarqemjDKPCGCOVAH3408-46-45 10:54:00 Test Item Value Reference Range Interpretation Comments Monocytes (test code = Monocytes) 9.0 2.0-12.0 N [facility]anoHsjmjmoUWKFGAEQKJ4321-13-55 10:54:00 Test Item Value Reference Range Interpretation Comments Eosinophils (test code = 2.4 See_Comment N [A utomated message] The Eosinophils) system which ge nerated this result tra nsmitted reference range : <=4.0. The reference r leo was not used to int erpret this result as normal/abnormal . [facility]anoScwrpiyDKASZGPXRW8439-68-75 10:54:00 Test Item Value Reference Range Interpretation Comments Monocytes # (test code 0.4 See_Comment N [Aut omated message] The = Monocytes #) system which generated this result tra nsmitted reference range : <=0.8. The reference r leo was not used to int erpret this result as normal/abnormal . [facility]anoWzfvsanOEUREZOBIR0554-39-28 10:54:00 Test Item Value Reference Range Interpretation Comments Lymphocytes # (test code = Lymphocytes 2.0 1.0-5.5 N #) [facility]anoHlzijwlJQNIGATWUT3279-86-57 10:54:00 Test Item Value Reference Range Interpretation Comments Lymphocytes (test code = Lymphocytes) 42.8 20.0-40.0 H [facility]anoKkcnylmJZUDZYJHBA0410-84-36 10:54:00 Test Item Value Reference Range Interpretation Comments Segs (test code = Segs) 45.4 45.0-75.0 N [facility] CenterLfnswkvAVNWMEQHV2669-00-76 10:02:00 Test Item Value Reference Range Interpretation Comments Chloride Lvl (test code = Chloride Lvl) 105 95-109 N [facility] CenterCtuwzeiAHYUEQIZX6983-26-28 10:02:00 Test Item Value Reference Range Interpretation Comments Potassium Lvl (test code = Potassium 4.1 3.5-5.1 N Lvl) [facility] CenterGtajechGJXYRKSNL1271-31-42 10:02:00 Test Item Value Reference Range Interpretation Comments Sodium Lvl (test code = Sodium Lvl) 143 135-145 N [facility] CenterSpltqolZTMAQGBJC8644-74-64 10:02:00 Test Item Value Reference Range Interpretation Comments CO2 (test code = CO2) 29 24-32 N [facility] CenterMsdkyvwKNHUXGWMT4189-32-26 10:02:00 Test Item Value Reference Range Interpretation Comments Calcium Lvl (test code = Calcium Lvl) 8.7 8.5-10.5 N [facility] CenterAykznsqEDEEGNLAY3810-33-08 10:02:00 Test Item Value Reference Range Interpretation Comments BUN (test code = BUN) 6 7-22 L [facility] CenterZmiwvifHOXWPXBCH2720-20-33 10:02:00 Test Item Value Reference Range Interpretation Comments Creatinine Lvl (test code = Creatinine 0.6 0.5-1.4 N Lvl) [facility] CenterUtjmkpvPMDNKBGRS8127-55-10 10:02:00 Test Item Value Reference Range Interpretation Comments Glucose Lvl (test code = Glucose Lvl) 118 [facility] CenterCbnpiazYQKXGPWOH5816-13-18 10:02:00 Test Item Value Reference Range Interpretation Comments AGAP (test code = AGAP) 13.1 10.0-20.0 N [facility]anoOcxyriuFDENTXNGCK6132-73-16 10:02:00 Test Item Value Reference Range Interpretation Comments Basophils # (test code 0.0 See_Comment N [Aut omated message] The = Basophils #) system which generated this result tra nsmitted reference range : <=0.2. The reference r leo was not used to int erpret this result as normal/abnormal . [facility]anoAoebyawLMXXDBNNZF6805-69-22 10:02:00 Test Item Value Reference Range Interpretation Comments Monocytes # (test code 0.3 See_Comment N [Aut omated message] The = Monocytes #) system which generated this result tra nsmitted reference range : <=0.8. The reference r leo was not used to int erpret this result as normal/abnormal . [facility]anoCvxgqmvDFATVXQNYR7007-89-90 10:02:00 Test Item Value Reference Range Interpretation Comments Eosinophils # (test code 0.1 See_Comment N [A utomated message] The = Eosinophils #) system whic h generated this result tra nsmitted reference range : <=0.5. The reference r leo was not used to int erpret this result as normal/abnormal . [facility]anoEjfbjiqZWDRERMXOD2131-90-03 10:02:00 Test Item Value Reference Range Interpretation Comments Segs-Bands # (test code = Segs-Bands #) 2.8 1.5-8.1 N [facility]anoYyqhawhFSFTLHNUEZ8020-07-32 10:02:00 Test Item Value Reference Range Interpretation Comments Lymphocytes # (test code = Lymphocytes 1.7 1.0-5.5 N #) [facility]anoWeaeacdNJUEAHCSTU5040-56-59 10:02:00 Test Item Value Reference Range Interpretation Comments Basophils (test code = 0.6 See_Comment N [Aut omated message] The Basophils) system which ge nerated this result tra nsmitted reference range : <=1.0. The reference r leo was not used to int erpret this result as normal/abnormal . [facility]anoOgdwncjBHYDNILMMH2178-42-69 10:02:00 Test Item Value Reference Range Interpretation Comments Monocytes (test code = Monocytes) 6.9 2.0-12.0 N [facility]anoBcgmrvhYVRHGVSKTC1418-65-40 10:02:00 Test Item Value Reference Range Interpretation Comments Eosinophils (test code = 2.0 See_Comment N [A utomated message] The Eosinophils) system which ge nerated this result tra nsmitted reference range : <=4.0. The reference r leo was not used to int erpret this result as normal/abnormal . [facility]anoKbicxdqOLDNEQCUBN8513-67-33 10:02:00 Test Item Value Reference Range Interpretation Comments Segs (test code = Segs) 55.8 45.0-75.0 N [facility]anoHeykpzpSNJWTOKPAM7261-69-56 10:02:00 Test Item Value Reference Range Interpretation Comments Lymphocytes (test code = Lymphocytes) 34.7 20.0-40.0 N [facility]anoRlrytqaKDDWXCAJAK2855-99-57 10:02:00 Test Item Value Reference Range Interpretation Comments PTT (test code = PTT) 32.2 s 22.9-35.8 N [facility]anoJkozhshCRXIUPBUPP5971-47-92 10:02:00 Test Item Value Reference Range Interpretation Comments PT (test code = PT) 13.3 s 12.0-14.7 N [facility]anoFydacrqCBSJFGEVIY9112-87-85 10:02:00 Test Item Value Reference Range Interpretation Comments INR (test code = INR) 1.01 0.85-1.17 N [facility]anoZcsxtheBCZWPYBLXE6033-48-71 10:02:00 Test Item Value Reference Range Interpretation Comments Hct (test code = Hct) 27.5 36.0-48.0 L [facility]anoUtgaivzGPGXMCYDKM4595-92-86 10:02:00 Test Item Value Reference Range Interpretation Comments RBC (test code = RBC) 3.34 4.20-5.40 L [facility]anoAigqpvuJYJWPUDKPW7575-98-02 10:02:00 Test Item Value Reference Range Interpretation Comments Hgb (test code = Hgb) 9.7 12.0-16.0 L [facility]anoJzbusfeEPJJCKPUOG2556-73-22 10:02:00 Test Item Value Reference Range Interpretation Comments WBC (test code = WBC) 5.0 3.7-10.4 N [facility]anoBsyhsxlTJWWRIGFNR3925-61-18 10:02:00 Test Item Value Reference Range Interpretation Comments MPV (test code = MPV) 9.2 7.4-10.4 N [facility]anoXkuciphFJCYLYZXRO6188-23-81 10:02:00 Test Item Value Reference Range Interpretation Comments Platelet (test code = Platelet) 240 133-450 N [facility]anoSwceefrLXPDFBHJLR5744-48-30 10:02:00 Test Item Value Reference Range Interpretation Comments RDW (test code = RDW) 14.3 11.5-14.5 N [facility]anoNkjjfcyUSELKSDAKM6769-44-70 10:02:00 Test Item Value Reference Range Interpretation Comments MCHC (test code = MCHC) 35.2 32.0-36.0 N [facility]anoQqmoubrYWYLRNDEKF8381-91-65 10:02:00 Test Item Value Reference Range Interpretation Comments MCH (test code = MCH) 28.9 pg 27.0-31.0 N [facility]anoAoiqkzqLSMWTGWFTJ1942-30-27 10:02:00 Test Item Value Reference Range Interpretation Comments MCV (test code = MCV) 82.1 81.0-99.0 N [facility] CenterTcktljlBAXROXLID4718-04-93 10:02:00 Test Item Value Reference Range Interpretation Comments Chloride Lvl (test code = Chloride Lvl) 105 95-109 N [facility] CenterGuuycmrACPFWMKQM0908-92-60 10:02:00 Test Item Value Reference Range Interpretation Comments Potassium Lvl (test code = Potassium 4.1 3.5-5.1 N Lvl) [facility] CenterMztqwlrRFSMVXQMV5233-18-32 10:02:00 Test Item Value Reference Range Interpretation Comments Sodium Lvl (test code = Sodium Lvl) 143 135-145 N [facility] CenterSaxtnldXRPQOESTG9518-56-84 10:02:00 Test Item Value Reference Range Interpretation Comments CO2 (test code = CO2) 29 24-32 N [facility] CenterQkmuojxKKCODFYLP1666-27-66 10:02:00 Test Item Value Reference Range Interpretation Comments Calcium Lvl (test code = Calcium Lvl) 8.7 8.5-10.5 N [facility] CenterBtroopgRFZREEGTG6252-94-84 10:02:00 Test Item Value Reference Range Interpretation Comments BUN (test code = BUN) 6 7-22 L [facility] CenterPtjibhgDSKELKJFS4484-88-40 10:02:00 Test Item Value Reference Range Interpretation Comments Creatinine Lvl (test code = Creatinine 0.6 0.5-1.4 N Lvl) [facility] CenterPawsosdIWAURPNDP4274-72-71 10:02:00 Test Item Value Reference Range Interpretation Comments Glucose Lvl (test code = Glucose Lvl) 118 [facility] CenterCbdosnrBREXECXTN7672-99-03 10:02:00 Test Item Value Reference Range Interpretation Comments AGAP (test code = AGAP) 13.1 10.0-20.0 N [facility]anoXkxeorkTDSNDDHNVO3350-33-57 10:02:00 Test Item Value Reference Range Interpretation Comments Basophils # (test code 0.0 See_Comment N [Aut omated message] The = Basophils #) system which generated this result tra nsmitted reference range : <=0.2. The reference r leo was not used to int erpret this result as normal/abnormal . [facility]anoNscyhkjDKIGSTYUGE2934-49-93 10:02:00 Test Item Value Reference Range Interpretation Comments Monocytes # (test code 0.3 See_Comment N [Aut omated message] The = Monocytes #) system which generated this result tra nsmitted reference range : <=0.8. The reference r leo was not used to int erpret this result as normal/abnormal . [facility]anoYqbtjxoFLUADVLMPZ4102-89-36 10:02:00 Test Item Value Reference Range Interpretation Comments Eosinophils # (test code 0.1 See_Comment N [A utomated message] The = Eosinophils #) system whic h generated this result tra nsmitted reference range : <=0.5. The reference r leo was not used to int erpret this result as normal/abnormal . [facility]anoLvpuwjxHDNTMRMYHY7521-62-63 10:02:00 Test Item Value Reference Range Interpretation Comments Segs-Bands # (test code = Segs-Bands #) 2.8 1.5-8.1 N [facility]anoSsntmpaYDBFXIJEWL4257-52-97 10:02:00 Test Item Value Reference Range Interpretation Comments Lymphocytes # (test code = Lymphocytes 1.7 1.0-5.5 N #) [facility] [place]GgkvpgaGWNBAUIKJY0865-93-46 10:02:00 Test Item Value Reference Range Interpretation Comments Basophils (test code = 0.6 See_Comment N [Aut omated message] The Basophils) system which ge nerated this result tra nsmitted reference range : <=1.0. The reference r leo was not used to int erpret this result as normal/abnormal . [facility] [place]anoGqleaeoNDERAQEFYO7373-93-45 10:02:00 Test Item Value Reference Range Interpretation Comments Monocytes (test code = Monocytes) 6.9 2.0-12.0 N [facility] [place]anoHqswmcwPDUVKEGZOC1793-84-31 10:02:00 Test Item Value Reference Range Interpretation Comments Eosinophils (test code = 2.0 See_Comment N [A utomated message] The Eosinophils) system which ge nerated this result tra nsmitted reference range : <=4.0. The reference r leo was not used to int erpret this result as normal/abnormal . [facility] [place]anoEofiorqJGEEKXWNVK0799-26-05 10:02:00 Test Item Value Reference Range Interpretation Comments Segs (test code = Segs) 55.8 45.0-75.0 N [facility] [place]anoLinacymMATZLKSZKS0327-61-90 10:02:00 Test Item Value Reference Range Interpretation Comments Lymphocytes (test code = Lymphocytes) 34.7 20.0-40.0 N [facility] [place]anoKeudvjxIGOPDCJNVH4403-38-68 10:02:00 Test Item Value Reference Range Interpretation Comments PTT (test code = PTT) 32.2 s 22.9-35.8 N [facility] [place]anoSdjclluGUIQIWYZHV9321-65-10 10:02:00 Test Item Value Reference Range Interpretation Comments PT (test code = PT) 13.3 s 12.0-14.7 N [facility] [place]SfxydnhCRHSGUPWAX4165-17-42 10:02:00 Test Item Value Reference Range Interpretation Comments INR (test code = INR) 1.01 0.85-1.17 N [facility] [place]anoWsesuglNOFDNMOJZI5180-27-10 10:02:00 Test Item Value Reference Range Interpretation Comments Hct (test code = Hct) 27.5 36.0-48.0 L [facility] [place]anoFpdjeecJZTPPBQWGC1143-62-81 10:02:00 Test Item Value Reference Range Interpretation Comments RBC (test code = RBC) 3.34 4.20-5.40 L [facility] [place]anoScoonegMCSZUGFGYH5997-03-81 10:02:00 Test Item Value Reference Range Interpretation Comments Hgb (test code = Hgb) 9.7 12.0-16.0 L [facility] [place]HzuekrrQKIEMILUOS1475-27-45 10:02:00 Test Item Value Reference Range Interpretation Comments WBC (test code = WBC) 5.0 3.7-10.4 N [facility] [place]anoUcrmpjeAGEWVPQWWB2279-35-54 10:02:00 Test Item Value Reference Range Interpretation Comments MPV (test code = MPV) 9.2 7.4-10.4 N [facility] [place]IldbludTGTEBTBKYT4255-03-20 10:02:00 Test Item Value Reference Range Interpretation Comments Platelet (test code = Platelet) 240 133-450 N [facility] [place]anoGzxenuqMWQPBVNTHV2790-63-70 10:02:00 Test Item Value Reference Range Interpretation Comments RDW (test code = RDW) 14.3 11.5-14.5 N [facility] [place]FgratsyTGAERVSCMN0342-63-45 10:02:00 Test Item Value Reference Range Interpretation Comments MCHC (test code = MCHC) 35.2 32.0-36.0 N [facility] [place]SyxoyqlXGCTANMXRP8479-48-99 10:02:00 Test Item Value Reference Range Interpretation Comments MCH (test code = MCH) 28.9 pg 27.0-31.0 N [facility] [place]anoHejvvopVPOKPLBOKN8280-55-60 10:02:00 Test Item Value Reference Range Interpretation Comments MCV (test code = MCV) 82.1 81.0-99.0 N [facility] CenterIdonebhXMBQQDYUP2347-87-27 10:02:00 Test Item Value Reference Range Interpretation Comments Chloride Lvl (test code = Chloride Lvl) 105 95-109 N [facility] CenterMzyfjxsEKERAHYDF0619-68-64 10:02:00 Test Item Value Reference Range Interpretation Comments Potassium Lvl (test code = Potassium 4.1 3.5-5.1 N Lvl) [facility] CenterHydegcnPDUVUPWUB2349-19-95 10:02:00 Test Item Value Reference Range Interpretation Comments Sodium Lvl (test code = Sodium Lvl) 143 135-145 N [facility] CenterMochqpdGTSEYMJYA4520-07-83 10:02:00 Test Item Value Reference Range Interpretation Comments CO2 (test code = CO2) 29 24-32 N [facility] CenterZycxohbRCOCGOYFD0879-90-01 10:02:00 Test Item Value Reference Range Interpretation Comments Calcium Lvl (test code = Calcium Lvl) 8.7 8.5-10.5 N [facility] CenterGmjxnpyFDTLDAZMR7428-34-58 10:02:00 Test Item Value Reference Range Interpretation Comments BUN (test code = BUN) 6 7-22 L [facility] CenterXgwagocFDAWCDTRW5881-49-99 10:02:00 Test Item Value Reference Range Interpretation Comments Creatinine Lvl (test code = Creatinine 0.6 0.5-1.4 N Lvl) [facility] CenterKoadjgvOYJEKIWJA4498-78-76 10:02:00 Test Item Value Reference Range Interpretation Comments Glucose Lvl (test code = Glucose Lvl) 118 [facility] CenterRzfcdhwLTNLFVOSL7597-96-43 10:02:00 Test Item Value Reference Range Interpretation Comments AGAP (test code = AGAP) 13.1 10.0-20.0 N [facility] [place]anoGocinpkTRVFAKDRIQ0323-93-55 10:02:00 Test Item Value Reference Range Interpretation Comments Basophils # (test code 0.0 See_Comment N [Aut omated message] The = Basophils #) system which generated this result tra nsmitted reference range : <=0.2. The reference r leo was not used to int erpret this result as normal/abnormal . [facility] [place]anoTlahjtsRPGDKJEGUX9619-77-27 10:02:00 Test Item Value Reference Range Interpretation Comments Monocytes # (test code 0.3 See_Comment N [Aut omated message] The = Monocytes #) system which generated this result tra nsmitted reference range : <=0.8. The reference r leo was not used to int erpret this result as normal/abnormal . [facility] [place]anoLputqdfGEDCHJJCTK4977-03-49 10:02:00 Test Item Value Reference Range Interpretation Comments Eosinophils # (test code 0.1 See_Comment N [A utomated message] The = Eosinophils #) system whic h generated this result tra nsmitted reference range : <=0.5. The reference r leo was not used to int erpret this result as normal/abnormal . [facility] [place]anoBiagnbuIGHPEPIBEH5550-32-83 10:02:00 Test Item Value Reference Range Interpretation Comments Segs-Bands # (test code = Segs-Bands #) 2.8 1.5-8.1 N [facility] [place]anoLqsxotxMGDPCABJQE8613-27-98 10:02:00 Test Item Value Reference Range Interpretation Comments Lymphocytes # (test code = Lymphocytes 1.7 1.0-5.5 N #) [facility] [place]anoCwvdrwxMGTTQCXMNL9966-65-21 10:02:00 Test Item Value Reference Range Interpretation Comments Basophils (test code = 0.6 See_Comment N [Aut omated message] The Basophils) system which ge nerated this result tra nsmitted reference range : <=1.0. The reference r leo was not used to int erpret this result as normal/abnormal . [facility] [place]anoBwytmedFWUXQKIZZD6761-60-48 10:02:00 Test Item Value Reference Range Interpretation Comments Monocytes (test code = Monocytes) 6.9 2.0-12.0 N [facility] [place]anoLewzgnfAHFGTSYELK8976-26-54 10:02:00 Test Item Value Reference Range Interpretation Comments Eosinophils (test code = 2.0 See_Comment N [A utomated message] The Eosinophils) system which ge nerated this result tra nsmitted reference range : <=4.0. The reference r leo was not used to int erpret this result as normal/abnormal . [facility] [place]anoAzwtwxnMHDLSAVJAK4554-58-53 10:02:00 Test Item Value Reference Range Interpretation Comments Segs (test code = Segs) 55.8 45.0-75.0 N [facility] [place]XwkpvcwQGUGZNODOH7721-00-48 10:02:00 Test Item Value Reference Range Interpretation Comments Lymphocytes (test code = Lymphocytes) 34.7 20.0-40.0 N [facility] [place]anoXtvixgfAUSLYKMUCE6967-06-63 10:02:00 Test Item Value Reference Range Interpretation Comments PTT (test code = PTT) 32.2 s 22.9-35.8 N [facility] [place]anoMthicnrHPDRTREELD3847-48-75 10:02:00 Test Item Value Reference Range Interpretation Comments PT (test code = PT) 13.3 s 12.0-14.7 N [facility] [place]anoDsdmritTUGXDGXQAE3952-11-87 10:02:00 Test Item Value Reference Range Interpretation Comments INR (test code = INR) 1.01 0.85-1.17 N [facility] [place]anoSejftxePNEJABVXLC2865-70-84 10:02:00 Test Item Value Reference Range Interpretation Comments Hct (test code = Hct) 27.5 36.0-48.0 L [facility] [place]anoJtdikkqCCAWSDIYSA5538-26-57 10:02:00 Test Item Value Reference Range Interpretation Comments RBC (test code = RBC) 3.34 4.20-5.40 L [facility] [place]IsenvfkOZVTXDUPND0365-27-77 10:02:00 Test Item Value Reference Range Interpretation Comments Hgb (test code = Hgb) 9.7 12.0-16.0 L [facility] [place]TsfzwctDGOCAGZKXT9639-16-00 10:02:00 Test Item Value Reference Range Interpretation Comments WBC (test code = WBC) 5.0 3.7-10.4 N [facility] [place]anoEpohakeGGTWVUSOIX9312-03-28 10:02:00 Test Item Value Reference Range Interpretation Comments MPV (test code = MPV) 9.2 7.4-10.4 N [facility] [place]anoAkatnivTWCRAPONSM0978-70-69 10:02:00 Test Item Value Reference Range Interpretation Comments Platelet (test code = Platelet) 240 133-450 N [facility] [place]anoWmsnlslYFZHCJWMNK5887-46-09 10:02:00 Test Item Value Reference Range Interpretation Comments RDW (test code = RDW) 14.3 11.5-14.5 N [facility] [place]anoGojclkoDHRAUOQPMC0237-00-86 10:02:00 Test Item Value Reference Range Interpretation Comments MCHC (test code = MCHC) 35.2 32.0-36.0 N [facility] [place]anoYnszucvXGKPEAGMVD2898-97-79 10:02:00 Test Item Value Reference Range Interpretation Comments MCH (test code = MCH) 28.9 pg 27.0-31.0 N [facility] [place]anoQfjstdcDYNUJQILXJ7764-91-17 10:02:00 Test Item Value Reference Range Interpretation Comments MCV (test code = MCV) 82.1 81.0-99.0 N [facility] CenterWxogarzCZOGFXXMM1288-33-78 10:02:00 Test Item Value Reference Range Interpretation Comments Chloride Lvl (test code = Chloride Lvl) 105 95-109 N [facility] CenterOeacecqCGUARWBPU9612-60-96 10:02:00 Test Item Value Reference Range Interpretation Comments Potassium Lvl (test code = Potassium 4.1 3.5-5.1 N Lvl) [facility] CenterQsqorngYDUJRYAVQ7858-78-03 10:02:00 Test Item Value Reference Range Interpretation Comments Sodium Lvl (test code = Sodium Lvl) 143 135-145 N [facility] CenterFtrkezkWIUCWKBDN9073-35-77 10:02:00 Test Item Value Reference Range Interpretation Comments CO2 (test code = CO2) 29 24-32 N [facility] CenterXfoiisqDFGAJCXLV9975-14-70 10:02:00 Test Item Value Reference Range Interpretation Comments Calcium Lvl (test code = Calcium Lvl) 8.7 8.5-10.5 N [facility] CenterLjamsyqNIWHPJFMI1946-38-18 10:02:00 Test Item Value Reference Range Interpretation Comments BUN (test code = BUN) 6 7-22 L [facility] CenterNbhbtzdDEYEJJTLH8365-99-98 10:02:00 Test Item Value Reference Range Interpretation Comments Creatinine Lvl (test code = Creatinine 0.6 0.5-1.4 N Lvl) [facility] CenterAgbdhasNRENXFDKB9893-04-10 10:02:00 Test Item Value Reference Range Interpretation Comments Glucose Lvl (test code = Glucose Lvl) 118 [facility] CenterYemawigXVRPABXGM1396-17-87 10:02:00 Test Item Value Reference Range Interpretation Comments AGAP (test code = AGAP) 13.1 10.0-20.0 N [facility] [place]anoOxuwbkcZPXGLGXDMN0165-53-39 10:02:00 Test Item Value Reference Range Interpretation Comments Basophils # (test code 0.0 See_Comment N [Aut omated message] The = Basophils #) system which generated this result tra nsmitted reference range : <=0.2. The reference r leo was not used to int erpret this result as normal/abnormal . [facility] [place]anoAgorvqlJUGLUOLPBT3623-14-66 10:02:00 Test Item Value Reference Range Interpretation Comments Monocytes # (test code 0.3 See_Comment N [Aut omated message] The = Monocytes #) system which generated this result tra nsmitted reference range : <=0.8. The reference r leo was not used to int erpret this result as normal/abnormal . [facility] [place]XlifjzzISWUPOOGZL7507-31-65 10:02:00 Test Item Value Reference Range Interpretation Comments Eosinophils # (test code 0.1 See_Comment N [A utomated message] The = Eosinophils #) system whic h generated this result tra nsmitted reference range : <=0.5. The reference r leo was not used to int erpret this result as normal/abnormal . [facility] [place]anoNxbnqykAAWVOMSTJQ2172-07-54 10:02:00 Test Item Value Reference Range Interpretation Comments Segs-Bands # (test code = Segs-Bands #) 2.8 1.5-8.1 N [facility] [place]anoYsejlewCEKOCGTJBP4649-92-62 10:02:00 Test Item Value Reference Range Interpretation Comments Lymphocytes # (test code = Lymphocytes 1.7 1.0-5.5 N #) [facility] [place]anoFpxcsquVCKPCSZMWH7077-31-12 10:02:00 Test Item Value Reference Range Interpretation Comments Basophils (test code = 0.6 See_Comment N [Aut omated message] The Basophils) system which ge nerated this result tra nsmitted reference range : <=1.0. The reference r leo was not used to int erpret this result as normal/abnormal . [facility] [place]anoRnwtnhdKVVMYQHGAQ0719-04-67 10:02:00 Test Item Value Reference Range Interpretation Comments Monocytes (test code = Monocytes) 6.9 2.0-12.0 N [facility] [place]anoGhfnnrdGVBZMJNLJV3958-20-34 10:02:00 Test Item Value Reference Range Interpretation Comments Eosinophils (test code = 2.0 See_Comment N [A utomated message] The Eosinophils) system which ge nerated this result tra nsmitted reference range : <=4.0. The reference r leo was not used to int erpret this result as normal/abnormal . [facility] [place]anoNiildyjGIIGJXVNTL3713-75-35 10:02:00 Test Item Value Reference Range Interpretation Comments Segs (test code = Segs) 55.8 45.0-75.0 N [facility] [place]anoHrvjponPEOWCGWVZV2132-50-61 10:02:00 Test Item Value Reference Range Interpretation Comments Lymphocytes (test code = Lymphocytes) 34.7 20.0-40.0 N [facility] [place]anoDekzzuaMQEUNENRPT1570-96-45 10:02:00 Test Item Value Reference Range Interpretation Comments PTT (test code = PTT) 32.2 s 22.9-35.8 N [facility] [place]anoJsepqrnSTJDRNDBZH1517-57-52 10:02:00 Test Item Value Reference Range Interpretation Comments PT (test code = PT) 13.3 s 12.0-14.7 N [facility] [place]anoHuaskipOHPJCPPTBV7552-59-21 10:02:00 Test Item Value Reference Range Interpretation Comments INR (test code = INR) 1.01 0.85-1.17 N [facility] [place]anoHnbgkfkNNLLVOPEPD3910-78-32 10:02:00 Test Item Value Reference Range Interpretation Comments Hct (test code = Hct) 27.5 36.0-48.0 L [facility] [place]anoLzmrtolSVHMCDNYXJ7615-84-70 10:02:00 Test Item Value Reference Range Interpretation Comments RBC (test code = RBC) 3.34 4.20-5.40 L [facility] [place]anoSxiaxstYTDGLNXCHH6884-50-91 10:02:00 Test Item Value Reference Range Interpretation Comments Hgb (test code = Hgb) 9.7 12.0-16.0 L [facility] [place]anoCcqslczUSVCLZHRNU3340-89-90 10:02:00 Test Item Value Reference Range Interpretation Comments WBC (test code = WBC) 5.0 3.7-10.4 N [facility] [place]anoJugzuflORYCEGBDQD9187-59-61 10:02:00 Test Item Value Reference Range Interpretation Comments MPV (test code = MPV) 9.2 7.4-10.4 N [facility] [place]anoJzyqfkkNJWMUXPTYK0015-78-46 10:02:00 Test Item Value Reference Range Interpretation Comments Platelet (test code = Platelet) 240 133-450 N [facility] [place]anoOfzotjgJVENOEEWPW7609-19-49 10:02:00 Test Item Value Reference Range Interpretation Comments RDW (test code = RDW) 14.3 11.5-14.5 N [facility] [place]anoAshcrglJAPZNJIXAZ8130-78-90 10:02:00 Test Item Value Reference Range Interpretation Comments MCHC (test code = MCHC) 35.2 32.0-36.0 N [facility] [place]anoMjvhbcvHDXWCUAUHB1158-80-63 10:02:00 Test Item Value Reference Range Interpretation Comments MCH (test code = MCH) 28.9 pg 27.0-31.0 N [facility] [place]anoDodybbnRFIKRAXVNP5962-75-27 10:02:00 Test Item Value Reference Range Interpretation Comments MCV (test code = MCV) 82.1 81.0-99.0 N [facility] CenterJfdmuhlZIRUGXGEQ2318-48-45 10:02:00 Test Item Value Reference Range Interpretation Comments Chloride Lvl (test code = Chloride Lvl) 105 95-109 N [facility] CenterHigchekPAPRYLXGS1486-96-57 10:02:00 Test Item Value Reference Range Interpretation Comments Potassium Lvl (test code = Potassium 4.1 3.5-5.1 N Lvl) [facility] CenterOxgmuouZDOBCOHVY8135-81-43 10:02:00 Test Item Value Reference Range Interpretation Comments Sodium Lvl (test code = Sodium Lvl) 143 135-145 N [facility] CenterHtbidqqUHAIHWHIK7536-07-91 10:02:00 Test Item Value Reference Range Interpretation Comments CO2 (test code = CO2) 29 24-32 N [facility] CenterFnvfchpVCXCGAOMO4812-46-88 10:02:00 Test Item Value Reference Range Interpretation Comments Calcium Lvl (test code = Calcium Lvl) 8.7 8.5-10.5 N [facility] CenterMjyecsvWQMCDFMPU0940-93-97 10:02:00 Test Item Value Reference Range Interpretation Comments BUN (test code = BUN) 6 7-22 L [facility] CenterRcdshfeJORAAJKRH2169-71-68 10:02:00 Test Item Value Reference Range Interpretation Comments Creatinine Lvl (test code = Creatinine 0.6 0.5-1.4 N Lvl) [facility] CenterWwweoksAJGCVFWJD9931-37-05 10:02:00 Test Item Value Reference Range Interpretation Comments Glucose Lvl (test code = Glucose Lvl) 118 [facility] CenterKvnqhebHEMNQEUVC2725-40-82 10:02:00 Test Item Value Reference Range Interpretation Comments AGAP (test code = AGAP) 13.1 10.0-20.0 N [facility] [place]anoLxgswqoUHVCMHIRTG7964-01-11 10:02:00 Test Item Value Reference Range Interpretation Comments Basophils # (test code 0.0 See_Comment N [Aut omated message] The = Basophils #) system which generated this result tra nsmitted reference range : <=0.2. The reference r leo was not used to int erpret this result as normal/abnormal . [facility] [place]anoOfxrtviMCAXBSCGTA7703-11-14 10:02:00 Test Item Value Reference Range Interpretation Comments Monocytes # (test code 0.3 See_Comment N [Aut omated message] The = Monocytes #) system which generated this result tra nsmitted reference range : <=0.8. The reference r leo was not used to int erpret this result as normal/abnormal . [facility] [place]anoUugkoolQKGYLVGYFS2788-56-46 10:02:00 Test Item Value Reference Range Interpretation Comments Eosinophils # (test code 0.1 See_Comment N [A utomated message] The = Eosinophils #) system whic h generated this result tra nsmitted reference range : <=0.5. The reference r leo was not used to int erpret this result as normal/abnormal . [facility] [place]anoOunaymjGIUCDJWSLY2956-12-47 10:02:00 Test Item Value Reference Range Interpretation Comments Segs-Bands # (test code = Segs-Bands #) 2.8 1.5-8.1 N [facility] [place]anoVkpbmxaPHNCDISHSU0469-73-72 10:02:00 Test Item Value Reference Range Interpretation Comments Lymphocytes # (test code = Lymphocytes 1.7 1.0-5.5 N #) [facility] [place]anoEokgvlgIMDXCRZKEC6438-57-65 10:02:00 Test Item Value Reference Range Interpretation Comments Basophils (test code = 0.6 See_Comment N [Aut omated message] The Basophils) system which ge nerated this result tra nsmitted reference range : <=1.0. The reference r leo was not used to int erpret this result as normal/abnormal . [facility] [place]anoNxvuivwWGOZCFMZUK6626-63-58 10:02:00 Test Item Value Reference Range Interpretation Comments Monocytes (test code = Monocytes) 6.9 2.0-12.0 N [facility] [place]anoFqpifaqJIRVVSWKHY6002-28-09 10:02:00 Test Item Value Reference Range Interpretation Comments Eosinophils (test code = 2.0 See_Comment N [A utomated message] The Eosinophils) system which ge nerated this result tra nsmitted reference range : <=4.0. The reference r leo was not used to int erpret this result as normal/abnormal . [facility] [place]anoTmvdybmIMFMWULVDY3552-87-60 10:02:00 Test Item Value Reference Range Interpretation Comments Segs (test code = Segs) 55.8 45.0-75.0 N [facility] [place]anoCcoqmmsVIKMEAPYLL1060-35-77 10:02:00 Test Item Value Reference Range Interpretation Comments Lymphocytes (test code = Lymphocytes) 34.7 20.0-40.0 N [facility] [place]anoZfrjtvmXIUNDPPGPT0527-83-48 10:02:00 Test Item Value Reference Range Interpretation Comments PTT (test code = PTT) 32.2 s 22.9-35.8 N [facility] [place]anoHmrxsfvFAFZZSWCVD5260-79-70 10:02:00 Test Item Value Reference Range Interpretation Comments PT (test code = PT) 13.3 s 12.0-14.7 N [facility] [place]anoSmnzojrTKOVKQAAVA9515-38-04 10:02:00 Test Item Value Reference Range Interpretation Comments INR (test code = INR) 1.01 0.85-1.17 N [facility] [place]anoLuvahfkPXPMQVXAOX0302-63-90 10:02:00 Test Item Value Reference Range Interpretation Comments Hct (test code = Hct) 27.5 36.0-48.0 L [facility] [place]anoSmuxuiuZFOSHRDXNL5910-61-02 10:02:00 Test Item Value Reference Range Interpretation Comments RBC (test code = RBC) 3.34 4.20-5.40 L [facility] [place]anoQdvokmyPTMKCWAVSX7147-65-22 10:02:00 Test Item Value Reference Range Interpretation Comments Hgb (test code = Hgb) 9.7 12.0-16.0 L [facility] [place]anoMhpfabsEHPGTZXUEY2082-11-61 10:02:00 Test Item Value Reference Range Interpretation Comments WBC (test code = WBC) 5.0 3.7-10.4 N [facility] [place]anoQsujegaXRYSPMKYPY9121-94-10 10:02:00 Test Item Value Reference Range Interpretation Comments MPV (test code = MPV) 9.2 7.4-10.4 N [facility] [place]anoFtyqstxYXTAHREDGE7673-06-63 10:02:00 Test Item Value Reference Range Interpretation Comments Platelet (test code = Platelet) 240 133-450 N [facility] [place]anoFknypnmLUXFOWJBXF9987-81-25 10:02:00 Test Item Value Reference Range Interpretation Comments RDW (test code = RDW) 14.3 11.5-14.5 N [facility] [place]anoAbeeeyzTWBWSGSBIL2962-08-18 10:02:00 Test Item Value Reference Range Interpretation Comments MCHC (test code = MCHC) 35.2 32.0-36.0 N [facility] [place]anoZwdviwkZIQIKHIIBH6117-73-40 10:02:00 Test Item Value Reference Range Interpretation Comments MCH (test code = MCH) 28.9 pg 27.0-31.0 N [facility] [place]anoMdlymcjIUSDUGNQUP6418-69-54 10:02:00 Test Item Value Reference Range Interpretation Comments MCV (test code = MCV) 82.1 81.0-99.0 N [facility] CenterKawmrgoZTNLNPMWQ3733-23-81 09:24:00 Test Item Value Reference Range Interpretation Comments Magnesium Lvl (test code = Magnesium 2.1 1.8-2.4 N Lvl) [facility] CenterLipqkjdRRLJAMTIG9141-57-53 09:24:00 Test Item Value Reference Range Interpretation Comments Magnesium Lvl (test code = Magnesium 2.1 1.8-2.4 N Lvl) [facility] CenterDyzvxagPENMNXPJP3853-52-50 09:24:00 Test Item Value Reference Range Interpretation Comments Magnesium Lvl (test code = Magnesium 2.1 1.8-2.4 N Lvl) [facility] CenterRoqywndLUOUDQGMU7353-49-10 09:24:00 Test Item Value Reference Range Interpretation Comments Magnesium Lvl (test code = Magnesium 2.1 1.8-2.4 N Lvl) [facility] CenterFjthnyxLPBIWINWH1033-64-78 09:24:00 Test Item Value Reference Range Interpretation Comments Magnesium Lvl (test code = Magnesium 2.1 1.8-2.4 N Lvl) [facility]NiwmwrcWzmfdfdxomed6111-59-38 00:32:00 Test Item Value Reference Range Interpretation Comments Culture: Aspirate/Body Fluid/Tissue (test code = Culture: Aspirate/Body Fluid/Tissue) [facility] HospitalAqvrkwyMjujohrpkiwo9918-42-30 00:32:00 Test Item Value Reference Range Interpretation Comments Culture: Anaerobic (test code = Culture: Anaerobic) [facility] HospitalRkaionrSfonlowqrwfu1223-91-79 00:32:00 Test Item Value Reference Range Interpretation Comments Culture: Aspirate/Body Fluid/Tissue (test code = Culture: Aspirate/Body Fluid/Tissue) [facility] HospitalKiotognXzngwplooias8638-29-67 00:32:00 Test Item Value Reference Range Interpretation Comments Culture: Anaerobic (test code = Culture: Anaerobic) [facility] HospitalLxfyaurVggezvoplzxw5252-47-20 00:32:00 Test Item Value Reference Range Interpretation Comments Culture: Aspirate/Body Fluid/Tissue (test code = Culture: Aspirate/Body Fluid/Tissue) [facility] HospitalFjxgiobSsgdywqbevuv2105-28-96 00:32:00 Test Item Value Reference Range Interpretation Comments Culture: Anaerobic (test code = Culture: Anaerobic) [facility] HospitalEfwpnfkGmzmorswcfkg0865-30-27 00:32:00 Test Item Value Reference Range Interpretation Comments Culture: Aspirate/Body Fluid/Tissue (test code = Culture: Aspirate/Body Fluid/Tissue) [facility] HospitalQqecflnGokjslpulzzy4612-84-76 00:32:00 Test Item Value Reference Range Interpretation Comments Culture: Anaerobic (test code = Culture: Anaerobic) [facility] HospitalNtthqzoCdejzexiguyo7960-43-71 00:32:00 Test Item Value Reference Range Interpretation Comments Culture: Aspirate/Body Fluid/Tissue (test code = Culture: Aspirate/Body Fluid/Tissue) [facility] HospitalBxeaqcqSofbyaorrcmu9940-79-13 00:32:00 Test Item Value Reference Range Interpretation Comments Culture: Anaerobic (test code = Culture: Anaerobic) [facility] CenterZsdgoysHNATZPGBV0354-88-63 17:10:00 Test Item Value Reference Range Interpretation Comments Temp Roberth (test code = Temp Roberth) 37.0 [facility] CenterQplzuwfZHJXFVPBL4865-22-55 17:10:00 Test Item Value Reference Range Interpretation Comments O2 Sat Roberth (test code = O2 Sat Roberth) 27.0 40.0-70.0 L [facility] CenterBfiugroKOINYYYAS4886-54-47 17:10:00 Test Item Value Reference Range Interpretation Comments pCO2 Roberth (test code = pCO2 Roberth) 47 38-52 N [facility] CenterMwphwpgSTQEPSPKP3365-03-69 17:10:00 Test Item Value Reference Range Interpretation Comments pH Roberth (test code = pH Roberth) 7.37 7.28-7.42 N [facility] CenterTtqzkcuTIVUEZUIW7301-57-20 17:10:00 Test Item Value Reference Range Interpretation Comments BE Roberth (test code = 1 See_Comment N [Automa rohit message] The BE Roberth) system which ge nerated this result transmit rohit reference range : <=2. The reference range was not used to interpr et this result as reji l/abnormal. [facility] CenterDroynupXBLEKTRLY7815-59-30 17:10:00 Test Item Value Reference Range Interpretation Comments HCO3 Roberth (test code = HCO3 Roberth) 27.2 22.0-26.0 H [facility] CenterNvclakxVMNAIOPIP3296-80-20 17:10:00 Test Item Value Reference Range Interpretation Comments pO2 Roberth (test code = pO2 Roberth) 19 20-49 L [facility] CenterNmpxoqqFSLYRPRXM9454-48-60 17:10:00 Test Item Value Reference Range Interpretation Comments Temp Roberth (test code = Temp Roberth) 37.0 [facility] CenterMyvxwcyBYSOTIEJV7627-32-33 17:10:00 Test Item Value Reference Range Interpretation Comments O2 Sat Roberth (test code = O2 Sat Roberth) 27.0 40.0-70.0 L [facility] CenterSbzbpycUMPPZNPUN8084-34-89 17:10:00 Test Item Value Reference Range Interpretation Comments pCO2 Roberth (test code = pCO2 Roberth) 47 38-52 N [facility] CenterDgwimgqYDHZHOKWZ3012-36-48 17:10:00 Test Item Value Reference Range Interpretation Comments pH Roberth (test code = pH Roberth) 7.37 7.28-7.42 N [facility] CenterQeccgheTLNCDDRAR8995-79-84 17:10:00 Test Item Value Reference Range Interpretation Comments BE Roberth (test code = 1 See_Comment N [Automa rohit message] The BE Roberth) system which ge nerated this result transmit rohit reference range : <=2. The reference range was not used to interpr et this result as reji l/abnormal. [facility] CenterQsewedbFIWIURXTR6356-91-13 17:10:00 Test Item Value Reference Range Interpretation Comments HCO3 Roberth (test code = HCO3 Roberth) 27.2 22.0-26.0 H [facility] CenterHpefublOIRTNRNAJ1368-62-40 17:10:00 Test Item Value Reference Range Interpretation Comments pO2 Roberth (test code = pO2 Roberth) 19 20-49 L [facility] CenterWcsjrluTXWDZQPPO1483-40-21 17:10:00 Test Item Value Reference Range Interpretation Comments Temp Roberth (test code = Temp Roberth) 37.0 [facility] CenterVwffspkAPWWWBPAF8559-25-35 17:10:00 Test Item Value Reference Range Interpretation Comments O2 Sat Roberth (test code = O2 Sat Roberth) 27.0 40.0-70.0 L [facility] CenterKrzawpnSMXETZATK1318-63-65 17:10:00 Test Item Value Reference Range Interpretation Comments pCO2 Roberth (test code = pCO2 Roberth) 47 38-52 N [facility] CenterQjykyytKKLLBINTX2229-56-36 17:10:00 Test Item Value Reference Range Interpretation Comments pH Roberth (test code = pH Roberth) 7.37 7.28-7.42 N [facility] CenterRkvkkdpSSWPDGQXA8901-56-27 17:10:00 Test Item Value Reference Range Interpretation Comments BE Roberth (test code = 1 See_Comment N [Automa rohit message] The BE Roberth) system which ge nerated this result transmit rohit reference range : <=2. The reference range was not used to interpr et this result as reji l/abnormal. [facility] CenterXljjmhtQRCHOGIXQ9825-32-81 17:10:00 Test Item Value Reference Range Interpretation Comments HCO3 Roberth (test code = HCO3 Roberth) 27.2 22.0-26.0 H [facility] CenterTmlvrteVMESEGRJT6306-64-97 17:10:00 Test Item Value Reference Range Interpretation Comments pO2 Roberth (test code = pO2 Roberth) 19 20-49 L [facility] CenterUqzzyotJEAYODUHQ6028-01-37 17:10:00 Test Item Value Reference Range Interpretation Comments Temp Roberth (test code = Temp Roberth) 37.0 [facility] CenterCbomhxpXBHKQMYMT7719-37-74 17:10:00 Test Item Value Reference Range Interpretation Comments O2 Sat Roberth (test code = O2 Sat Roberth) 27.0 40.0-70.0 L [facility] CenterOqwmbzqZESUWEQGT2824-09-75 17:10:00 Test Item Value Reference Range Interpretation Comments pCO2 Roberth (test code = pCO2 Roberth) 47 38-52 N [facility] CenterBjzwnnlJKRCMXNAJ0186-87-85 17:10:00 Test Item Value Reference Range Interpretation Comments pH Roberth (test code = pH Roberth) 7.37 7.28-7.42 N [facility] CenterGmzkybsHQXBBLDKB9099-97-22 17:10:00 Test Item Value Reference Range Interpretation Comments BE Roberth (test code = 1 See_Comment N [Automa rohit message] The BE Roberth) system which ge nerated this result transmit rohit reference range : <=2. The reference range was not used to interpr et this result as reji l/abnormal. [facility] CenterRhstipbIPLRXEENB3864-02-47 17:10:00 Test Item Value Reference Range Interpretation Comments HCO3 Roberth (test code = HCO3 Roberth) 27.2 22.0-26.0 H [facility] CenterBwwzzrfYAQZZOMAY7889-26-50 17:10:00 Test Item Value Reference Range Interpretation Comments pO2 Roberth (test code = pO2 Roberth) 19 20-49 L [facility] CenterCxoqmybMDEOKPZFI3300-58-84 17:10:00 Test Item Value Reference Range Interpretation Comments Temp Roberth (test code = Temp Roberth) 37.0 [facility] CenterRcmrhgpZQUCFGEBG3380-10-72 17:10:00 Test Item Value Reference Range Interpretation Comments O2 Sat Roberth (test code = O2 Sat Roberth) 27.0 40.0-70.0 L [facility] CenterKswwaoxTWNFMSTCI8160-80-32 17:10:00 Test Item Value Reference Range Interpretation Comments pCO2 Roberth (test code = pCO2 Roberth) 47 38-52 N [facility] CenterXjvzopiORYBTHIZX8096-13-22 17:10:00 Test Item Value Reference Range Interpretation Comments pH Roberth (test code = pH Roberth) 7.37 7.28-7.42 N [facility] CenterSnlizzpTMFWNLTTK4300-98-65 17:10:00 Test Item Value Reference Range Interpretation Comments BE Roberth (test code = 1 See_Comment N [Automa rohit message] The BE Roberth) system which ge nerated this result transmit rohit reference range : <=2. The reference range was not used to interpr et this result as reji l/abnormal. [facility] CenterVymrowmYESFNZVOB7490-96-16 17:10:00 Test Item Value Reference Range Interpretation Comments HCO3 Roberth (test code = HCO3 Roberth) 27.2 22.0-26.0 H [facility] CenterYdcxavaNFIRSGMML8920-79-82 17:10:00 Test Item Value Reference Range Interpretation Comments pO2 Roberth (test code = pO2 Roberth) 19 20-49 L [facility] HospitalNzuybwpFihovfaeojxa4600-97-92 14:18:00 Test Item Value Reference Range Interpretation Comments Culture: Blood (test code = Culture: Blood) [facility] HospitalCfsvcpmEjoaysqstolz9806-79-20 14:18:00 Test Item Value Reference Range Interpretation Comments Culture: Wound/Abscess w/Gram Stain (test code = Culture: Wound/Abscess w/Gram Stain) [facility] HospitalFazahiqRizktnmlppzd3896-49-80 14:18:00 Test Item Value Reference Range Interpretation Comments Culture: Blood (test code = Culture: Blood) [facility] HospitalWuivsyjFozazuajvixs0360-15-98 14:18:00 Test Item Value Reference Range Interpretation Comments Culture: Wound/Abscess w/Gram Stain (test code = Culture: Wound/Abscess w/Gram Stain) [facility] HospitalAxzfxxyZtrnuoehtwxo2168-12-51 14:18:00 Test Item Value Reference Range Interpretation Comments Culture: Blood (test code = Culture: Blood) [facility] HospitalPbkwvvaYyssmwojyydu5510-32-77 14:18:00 Test Item Value Reference Range Interpretation Comments Culture: Wound/Abscess w/Gram Stain (test code = Culture: Wound/Abscess w/Gram Stain) [facility] HospitalEkjzsxcXkgssmyhtkdi0874-66-74 14:18:00 Test Item Value Reference Range Interpretation Comments Culture: Blood (test code = Culture: Blood) [facility] HospitalMdufuwmGihzcukgcydx6535-30-33 14:18:00 Test Item Value Reference Range Interpretation Comments Culture: Wound/Abscess w/Gram Stain (test code = Culture: Wound/Abscess w/Gram Stain) [facility] HospitalJnersvdCjrwkvmegvfk5109-17-27 14:18:00 Test Item Value Reference Range Interpretation Comments Culture: Blood (test code = Culture: Blood) [facility] HospitalZewcsuoEnooswklysvv0212-78-54 14:18:00 Test Item Value Reference Range Interpretation Comments Culture: Wound/Abscess w/Gram Stain (test code = Culture: Wound/Abscess w/Gram Stain) [facility] CenterLlnmpgdRPEEEUJJS6632-43-48 13:09:00 Test Item Value Reference Range Interpretation Comments Lactic Acid Lvl (test code = Lactic 1.0 0.5-2.2 N Acid Lvl) [facility] CenterSxulefgAGJXYUWJS0045-83-12 13:09:00 Test Item Value Reference Range Interpretation Comments Lactic Acid Lvl (test code = Lactic 1.0 0.5-2.2 N Acid Lvl) [facility] CenterRnrkffwSAEIAZJIF0046-75-34 13:09:00 Test Item Value Reference Range Interpretation Comments Lactic Acid Lvl (test code = Lactic 1.0 0.5-2.2 N Acid Lvl) [facility] CenterHditfeqZDQWHNCUL2984-77-93 13:09:00 Test Item Value Reference Range Interpretation Comments Lactic Acid Lvl (test code = Lactic 1.0 0.5-2.2 N Acid Lvl) [facility] CenterOakulnfJVZQEAMKB1544-88-82 13:09:00 Test Item Value Reference Range Interpretation Comments Lactic Acid Lvl (test code = Lactic 1.0 0.5-2.2 N Acid Lvl) [facility] CenterDvzrtnmFBMMDZVLF1370-80-85 12:20:00 Test Item Value Reference Range Interpretation Comments U Preg (test code = U Negative (09/01/2011 N Preg) 07:20:00) [facility]skrsdpLDIBPSJXYR1536-71-45 12:20:00 Test Item Value Reference Range Interpretation Comments UA Sq Epi (test code Occasional /LPF N = UA Sq Epi) (09/01/2011 07:20:00) [facility] [place]oundFcvhrorHAJRRMQNEO8692-06-01 12:20:00 Test Item Value Reference Range Interpretation Comments UA Leuk Est (test Negative (09/01/2011 N code = UA Leuk Est) 07:20:00) [facility]IiubtwvPBEUUKPGON2493-99-47 12:20:00 Test Item Value Reference Range Interpretation Comments UA Nitrite (test code Negative (09/01/2011 N = UA Nitrite) 07:20:00) [facility] HospitalZgfuyhiKMUGCHFRDL8447-19-22 12:20:00 Test Item Value Reference Range Interpretation Comments UA Urobilinogen (test code = UA 0.2 0.1-1.0 N Urobilinogen) [facility]oundGghhhuqIOBHQVKJMU7595-61-33 12:20:00 Test Item Value Reference Range Interpretation Comments UA Blood (test code = Negative (09/01/2011 N UA Blood) 07:20:00) [facility]AvpkjqkXQBBOLKGNE8681-47-68 12:20:00 Test Item Value Reference Range Interpretation Comments UA Ketones (test code = >=80 mg/dL A UA Ketones) *ABN*(09/01/2011 07:20:00) [facility] [place]SqeflwvQSUKXSZCAF4814-06-22 12:20:00 Test Item Value Reference Range Interpretation Comments UA Protein (test code Negative (09/01/2011 N = UA Protein) 07:20:00) [facility] HospitalLdpnpoaKJLQXFYTNC3848-17-21 12:20:00 Test Item Value Reference Range Interpretation Comments UA pH (test code = UA pH) 6.0 1 5.0-8.0 N [facility] HospitalPbcwrszBYSGGWYVTQ8236-46-88 12:20:00 Test Item Value Reference Range Interpretation Comments UA Bili (test code = Negative (09/01/2011 N UA Bili) 07:20:00) [facility] [place]oundVxnechzMJRPMOUTJG6363-13-88 12:20:00 Test Item Value Reference Range Interpretation Comments UA Glucose (test code = >=1000 mg/dL A UA Glucose) *ABN*(09/01/2011 07:20:00) [facility]EbhpdiwTZKOWLZWDF1342-62-84 12:20:00 Test Item Value Reference Range Interpretation Comments UA Spec Grav (test code = UA Spec 1.035 1 H Grav) [facility] HospitalShhglriJOAVVUDMAL0733-21-22 12:20:00 Test Item Value Reference Range Interpretation Comments UA Turbidity (test code = Clear (09/01/2011 N UA Turbidity) 07:20:00) [facility] HospitalJjiphhqVEIMXBNWIG6843-13-16 12:20:00 Test Item Value Reference Range Interpretation Comments UA Color (test code = Yellow *NA*(09/01/2011 UA Color) 07:20:00) [facility] HospitalJqsugzgLBLAEABPE2160-91-90 12:20:00 Test Item Value Reference Range Interpretation Comments U Preg (test code = U Negative (09/01/2011 N Preg) 07:20:00) [facility]oundWymdwuxCGEADLEAUW3244-73-52 12:20:00 Test Item Value Reference Range Interpretation Comments UA Sq Epi (test code Occasional /LPF N = UA Sq Epi) (09/01/2011 07:20:00) [facility]oundIwtcchuVIUKDNCRUH9885-14-52 12:20:00 Test Item Value Reference Range Interpretation Comments UA Leuk Est (test Negative (09/01/2011 N code = UA Leuk Est) 07:20:00) [facility]SpnjjzxIPWGWNWMJQ4981-99-52 12:20:00 Test Item Value Reference Range Interpretation Comments UA Nitrite (test code Negative (09/01/2011 N = UA Nitrite) 07:20:00) [facility] NorthwestOuozxsmCIJFJXZZFT1960-41-58 12:20:00 Test Item Value Reference Range Interpretation Comments UA Urobilinogen (test code = UA 0.2 0.1-1.0 N Urobilinogen) [facility] NorthwestCpmrsutAPMVNDNDTV3061-08-53 12:20:00 Test Item Value Reference Range Interpretation Comments UA Blood (test code = Negative (09/01/2011 N UA Blood) 07:20:00) [facility] NorthwestXulbyjnFIFYJUIPZZ2217-48-19 12:20:00 Test Item Value Reference Range Interpretation Comments UA Ketones (test code = >=80 mg/dL A UA Ketones) *ABN*(09/01/2011 07:20:00) [facility] NorthwestBqyutjmYBJSHXIRDA5317-94-30 12:20:00 Test Item Value Reference Range Interpretation Comments UA Protein (test code Negative (09/01/2011 N = UA Protein) 07:20:00) [facility] NorthwestPhzdlzySXWAIQKNFQ1056-49-98 12:20:00 Test Item Value Reference Range Interpretation Comments UA pH (test code = UA pH) 6.0 1 5.0-8.0 N [facility] NorthwestYkkclgdZLTUXBSFKH1949-60-71 12:20:00 Test Item Value Reference Range Interpretation Comments UA Bili (test code = Negative (09/01/2011 N UA Bili) 07:20:00) [facility] NorthwestBvjmoohBALUTWQFOI7261-25-22 12:20:00 Test Item Value Reference Range Interpretation Comments UA Glucose (test code = >=1000 mg/dL A UA Glucose) *ABN*(09/01/2011 07:20:00) [facility] NorthwestViqpjicSNWYSLCUFY8651-20-78 12:20:00 Test Item Value Reference Range Interpretation Comments UA Spec Grav (test code = UA Spec 1.035 1 H Grav) [facility] NorthwestKsaakhnHSZNKRCSYB5368-84-08 12:20:00 Test Item Value Reference Range Interpretation Comments UA Turbidity (test code = Clear (09/01/2011 N UA Turbidity) 07:20:00) [facility]QvxjxpgKPCQGFPMPU0166-72-28 12:20:00 Test Item Value Reference Range Interpretation Comments UA Color (test code = Yellow *NA*(09/01/2011 UA Color) 07:20:00) [facility] HospitalAzqvypzJIZYUFNWO1415-28-75 12:20:00 Test Item Value Reference Range Interpretation Comments U Preg (test code = U Negative (09/01/2011 N Preg) 07:20:00) [facility] HospitalGhdmpfjXJVHNDBHFK4599-17-96 12:20:00 Test Item Value Reference Range Interpretation Comments UA Sq Epi (test code Occasional /LPF N = UA Sq Epi) (09/01/2011 07:20:00) [facility] HospitalZbdtkylVVBCVXHVBE1911-85-93 12:20:00 Test Item Value Reference Range Interpretation Comments UA Leuk Est (test Negative (09/01/2011 N code = UA Leuk Est) 07:20:00) [facility] HospitalJpjjikgSHFNRQHNBT2517-70-70 12:20:00 Test Item Value Reference Range Interpretation Comments UA Nitrite (test code Negative (09/01/2011 N = UA Nitrite) 07:20:00) [facility] HospitalTwtujwlZFIBUOADJT4655-23-51 12:20:00 Test Item Value Reference Range Interpretation Comments UA Urobilinogen (test code = UA 0.2 0.1-1.0 N Urobilinogen) [facility] HospitalAfbxpxiONNMFPEBNY0106-47-46 12:20:00 Test Item Value Reference Range Interpretation Comments UA Blood (test code = Negative (09/01/2011 N UA Blood) 07:20:00) [facility] HospitalSkknvxzLMOJSBGMUQ1922-35-24 12:20:00 Test Item Value Reference Range Interpretation Comments UA Ketones (test code = >=80 mg/dL A UA Ketones) *ABN*(09/01/2011 07:20:00) [facility] HospitalLuqpgejWTDQESDYJJ2203-28-15 12:20:00 Test Item Value Reference Range Interpretation Comments UA Protein (test code Negative (09/01/2011 N = UA Protein) 07:20:00) [facility] HospitalXiualgoZZJMNURDDF3881-31-17 12:20:00 Test Item Value Reference Range Interpretation Comments UA pH (test code = UA pH) 6.0 1 5.0-8.0 N [facility] StationBivmekfYIRPHYDSJF9926-35-94 12:20:00 Test Item Value Reference Range Interpretation Comments UA Bili (test code = Negative (09/01/2011 N UA Bili) 07:20:00) [facility] StationLcsltuiTSAMRQIJXW0411-95-81 12:20:00 Test Item Value Reference Range Interpretation Comments UA Glucose (test code = >=1000 mg/dL A UA Glucose) *ABN*(09/01/2011 07:20:00) [facility] StationOesafwqSQXDMWVZTU5346-12-34 12:20:00 Test Item Value Reference Range Interpretation Comments UA Spec Grav (test code = UA Spec 1.035 1 H Grav) [facility] StationNcwsizyMNLLYNYOOS0734-32-48 12:20:00 Test Item Value Reference Range Interpretation Comments UA Turbidity (test code = Clear (09/01/2011 N UA Turbidity) 07:20:00) [facility] StationCrslbpuXYNQBAXHEE9588-92-98 12:20:00 Test Item Value Reference Range Interpretation Comments UA Color (test code = Yellow *NA*(09/01/2011 UA Color) 07:20:00) [facility] StationWpjsvzgJUPXSQUWU8985-39-98 12:20:00 Test Item Value Reference Range Interpretation Comments U Preg (test code = U Negative (09/01/2011 N Preg) 07:20:00) [facility] StationVavozclXOOSOWAEAM9367-09-02 12:20:00 Test Item Value Reference Range Interpretation Comments UA Sq Epi (test code Occasional /LPF N = UA Sq Epi) (09/01/2011 07:20:00) [facility] StationGethbllWVZTTFUZNR6340-89-50 12:20:00 Test Item Value Reference Range Interpretation Comments UA Leuk Est (test Negative (09/01/2011 N code = UA Leuk Est) 07:20:00) [facility] StationBzgojmuNCRMWHPULR7606-01-80 12:20:00 Test Item Value Reference Range Interpretation Comments UA Nitrite (test code Negative (09/01/2011 N = UA Nitrite) 07:20:00) [facility] StationFwnhuuoXURXCFJBBY3673-04-60 12:20:00 Test Item Value Reference Range Interpretation Comments UA Urobilinogen (test code = UA 0.2 0.1-1.0 N Urobilinogen) [facility] StationVfivsgeDQLIHIXEFI5346-50-38 12:20:00 Test Item Value Reference Range Interpretation Comments UA Blood (test code = Negative (09/01/2011 N UA Blood) 07:20:00) [facility]WvjbgzeXQZRMTEQJI9901-46-50 12:20:00 Test Item Value Reference Range Interpretation Comments UA Ketones (test code = >=80 mg/dL A UA Ketones) *ABN*(09/01/2011 07:20:00) [facility]oundIohwaxhQHKASLNZXO9596-58-93 12:20:00 Test Item Value Reference Range Interpretation Comments UA Protein (test code Negative (09/01/2011 N = UA Protein) 07:20:00) [facility]oundNixlyypBVYQFNNNFY7463-82-73 12:20:00 Test Item Value Reference Range Interpretation Comments UA pH (test code = UA pH) 6.0 1 5.0-8.0 N [facility] [place]oundNcqorrzVSXDYXPTPH9474-83-89 12:20:00 Test Item Value Reference Range Interpretation Comments UA Bili (test code = Negative (09/01/2011 N UA Bili) 07:20:00) [facility] [place]oundRyuudvaWLGCOKXPCV9277-55-64 12:20:00 Test Item Value Reference Range Interpretation Comments UA Glucose (test code = >=1000 mg/dL A UA Glucose) *ABN*(09/01/2011 07:20:00) [facility] NorthwestQwsqkwmYYJZOJGHFZ3184-74-02 12:20:00 Test Item Value Reference Range Interpretation Comments UA Spec Grav (test code = UA Spec 1.035 1 H Grav) [facility] [place]oundDzhhenyVVSUXYPQPA2838-40-27 12:20:00 Test Item Value Reference Range Interpretation Comments UA Turbidity (test code = Clear (09/01/2011 N UA Turbidity) 07:20:00) [facility] [place]oundBjwatuzLDDJYPJVHS1039-07-70 12:20:00 Test Item Value Reference Range Interpretation Comments UA Color (test code = Yellow *NA*(09/01/2011 UA Color) 07:20:00) [facility] HospitalZrnqojxZIRKXGZIT1117-18-45 12:20:00 Test Item Value Reference Range Interpretation Comments U Preg (test code = U Negative (09/01/2011 N Preg) 07:20:00) [facility] [place]oundHamjfloZHZTEDJQEX5752-85-60 12:20:00 Test Item Value Reference Range Interpretation Comments UA Sq Epi (test code Occasional /LPF N = UA Sq Epi) (09/01/2011 07:20:00) [facility]rvyqhxRRTAKPACWG1929-41-89 12:20:00 Test Item Value Reference Range Interpretation Comments UA Leuk Est (test Negative (09/01/2011 N code = UA Leuk Est) 07:20:00) [facility]HoysmyaCPTVJBTJJS5745-25-50 12:20:00 Test Item Value Reference Range Interpretation Comments UA Nitrite (test code Negative (09/01/2011 N = UA Nitrite) 07:20:00) [facility]RbrelsaSPKRNSOEJC5588-82-31 12:20:00 Test Item Value Reference Range Interpretation Comments UA Urobilinogen (test code = UA 0.2 0.1-1.0 N Urobilinogen) [facility] NorthwestYmkahohHPDZAMWKME0328-81-51 12:20:00 Test Item Value Reference Range Interpretation Comments UA Blood (test code = Negative (09/01/2011 N UA Blood) 07:20:00) [facility] NorthwestGfuwgqeWFUWNBHUET1425-70-35 12:20:00 Test Item Value Reference Range Interpretation Comments UA Ketones (test code = >=80 mg/dL A UA Ketones) *ABN*(09/01/2011 07:20:00) [facility] NorthwestGarpsxpMTVEGVGLTD8838-19-14 12:20:00 Test Item Value Reference Range Interpretation Comments UA Protein (test code Negative (09/01/2011 N = UA Protein) 07:20:00) [facility] NorthwestYdxnewgTXADTFLKGL9459-48-78 12:20:00 Test Item Value Reference Range Interpretation Comments UA pH (test code = UA pH) 6.0 1 5.0-8.0 N [facility]oundTiuswmtJCYSHUHWON9360-06-34 12:20:00 Test Item Value Reference Range Interpretation Comments UA Bili (test code = Negative (09/01/2011 N UA Bili) 07:20:00) [facility]oundMywtkbiLSVCLCIRHQ7557-30-06 12:20:00 Test Item Value Reference Range Interpretation Comments UA Glucose (test code = >=1000 mg/dL A UA Glucose) *ABN*(09/01/2011 07:20:00) [facility]oundGmgorckSAYHHDBFJB2617-85-10 12:20:00 Test Item Value Reference Range Interpretation Comments UA Spec Grav (test code = UA Spec 1.035 1 H Grav) [facility] NorthwestQxwygoqZJQOMAXSEI3877-11-20 12:20:00 Test Item Value Reference Range Interpretation Comments UA Turbidity (test code = Clear (09/01/2011 N UA Turbidity) 07:20:00) [facility] NorthwestVupsetkPKPMJLEXWC9264-12-92 12:20:00 Test Item Value Reference Range Interpretation Comments UA Color (test code = Yellow *NA*(09/01/2011 UA Color) 07:20:00) [facility] CenterIydbdnrGEWWDLWKG0951-77-21 08:00:00 Test Item Value Reference Range Interpretation Comments Lactic Acid Lvl (test code = Lactic 2.8 0.5-2.2 H Acid Lvl) [facility] CenterIymutsvQWYDLZFEJ7316-62-11 08:00:00 Test Item Value Reference Range Interpretation Comments Lactic Acid Lvl (test code = Lactic 2.8 0.5-2.2 H Acid Lvl) [facility] CenterKyvnooiGDIMYPSMR6215-63-85 08:00:00 Test Item Value Reference Range Interpretation Comments Lactic Acid Lvl (test code = Lactic 2.8 0.5-2.2 H Acid Lvl) [facility] CenterBzpjmauATGXZENXJ9180-66-64 08:00:00 Test Item Value Reference Range Interpretation Comments Lactic Acid Lvl (test code = Lactic 2.8 0.5-2.2 H Acid Lvl) [facility] CenterBvbsdywFWXPFLEJI7013-06-41 08:00:00 Test Item Value Reference Range Interpretation Comments Lactic Acid Lvl (test code = Lactic 2.8 0.5-2.2 H Acid Lvl) [facility] CenterXdmuqhgERQDNYJBF2484-68-91 07:47:00 Test Item Value Reference Range Interpretation Comments Magnesium Lvl (test code = Magnesium 1.5 1.8-2.4 L Lvl) [facility]QxljyreDWPSORDLRQ1958-58-70 07:47:00 Test Item Value Reference Range Interpretation Comments Polychrom (test code = Slight (09/01/2011 N Polychrom) 02:47:00) [facility]anoIkadlanMTWCNVSNGA9406-22-06 07:47:00 Test Item Value Reference Range Interpretation Comments Anisocyte (test code = 1+ *ABN*(09/01/2011 A Anisocyte) 02:47:00) [facility]anoFvdadrnSAAZEJZBDC7070-89-28 07:47:00 Test Item Value Reference Range Interpretation Comments Large Plt (test code = Slight *ABN*(09/01/2011 A Large Plt) 02:47:00) [facility]anoDlbflynBCZNHKNDPC9768-87-86 07:47:00 Test Item Value Reference Range Interpretation Comments Tear Cell (test code = Tear Cell) [facility]anoMdgcfrmTMUYWWRRLB0875-17-18 07:47:00 Test Item Value Reference Range Interpretation Comments Elliptocyte (test code = Slight A Elliptocyte) *ABN*(09/01/2011 02:47:00) [facility] CenterTckgngyVNZZHKNSK2382-47-55 07:47:00 Test Item Value Reference Range Interpretation Comments Magnesium Lvl (test code = Magnesium 1.5 1.8-2.4 L Lvl) [facility]anoSdtdmjgNEYUFLMBVN8923-95-18 07:47:00 Test Item Value Reference Range Interpretation Comments Polychrom (test code = Slight (09/01/2011 N Polychrom) 02:47:00) [facility]anoBpdndaqCMVFVIOGGY1351-38-43 07:47:00 Test Item Value Reference Range Interpretation Comments Anisocyte (test code = 1+ *ABN*(09/01/2011 A Anisocyte) 02:47:00) [facility]anoDyfoyjwFAJJAWFZGZ0595-92-00 07:47:00 Test Item Value Reference Range Interpretation Comments Large Plt (test code = Slight *ABN*(09/01/2011 A Large Plt) 02:47:00) [facility]anoHpceggaJFFASSMMJT7811-64-69 07:47:00 Test Item Value Reference Range Interpretation Comments Tear Cell (test code = Tear Cell) [facility]anoXoasbvrTWULAAXBPM9281-97-86 07:47:00 Test Item Value Reference Range Interpretation Comments Elliptocyte (test code = Slight A Elliptocyte) *ABN*(09/01/2011 02:47:00) [facility] CenterRgsaaohHQXRANDTZ7344-64-37 07:47:00 Test Item Value Reference Range Interpretation Comments Magnesium Lvl (test code = Magnesium 1.5 1.8-2.4 L Lvl) [facility]anoYxhypyiUJHIRQZPFX8383-33-77 07:47:00 Test Item Value Reference Range Interpretation Comments Polychrom (test code = Slight (09/01/2011 N Polychrom) 02:47:00) [facility]anoCrvczysCPMVCHWIXL6767-83-42 07:47:00 Test Item Value Reference Range Interpretation Comments Anisocyte (test code = 1+ *ABN*(09/01/2011 A Anisocyte) 02:47:00) [facility]anoMwacmimYMNWCNDHAO1811-28-37 07:47:00 Test Item Value Reference Range Interpretation Comments Large Plt (test code = Slight *ABN*(09/01/2011 A Large Plt) 02:47:00) [facility]anoBspxvdxEINPRYVZVN4309-46-92 07:47:00 Test Item Value Reference Range Interpretation Comments Tear Cell (test code = Tear Cell) [facility]anoTtkeuzqPVJAAYZQOS5561-17-67 07:47:00 Test Item Value Reference Range Interpretation Comments Elliptocyte (test code = Slight A Elliptocyte) *ABN*(09/01/2011 02:47:00) [facility] CenterJhfhrboHZSGIKZWN6688-27-35 07:47:00 Test Item Value Reference Range Interpretation Comments Magnesium Lvl (test code = Magnesium 1.5 1.8-2.4 L Lvl) [facility]anoUzzbeiyBWCWYAPVHU3830-78-93 07:47:00 Test Item Value Reference Range Interpretation Comments Polychrom (test code = Slight (09/01/2011 N Polychrom) 02:47:00) [facility]anoQwhknahFFYSXKRCDY2352-46-32 07:47:00 Test Item Value Reference Range Interpretation Comments Anisocyte (test code = 1+ *ABN*(09/01/2011 A Anisocyte) 02:47:00) [facility]anoHqdxaamXBPHGWLRVM4709-14-83 07:47:00 Test Item Value Reference Range Interpretation Comments Large Plt (test code = Slight *ABN*(09/01/2011 A Large Plt) 02:47:00) [facility]anoDyjujphIQNQHLPKXM4209-13-89 07:47:00 Test Item Value Reference Range Interpretation Comments Tear Cell (test code = Tear Cell) [facility]anoYemnwlfFKLXCXXVSJ1132-90-59 07:47:00 Test Item Value Reference Range Interpretation Comments Elliptocyte (test code = Slight A Elliptocyte) *ABN*(09/01/2011 02:47:00) [facility] CenterHkubmlvFLCYEQHMX1620-96-73 07:47:00 Test Item Value Reference Range Interpretation Comments Magnesium Lvl (test code = Magnesium 1.5 1.8-2.4 L Lvl) [facility]anoQqjhefiRJPSBLVYAK2695-46-46 07:47:00 Test Item Value Reference Range Interpretation Comments Polychrom (test code = Slight (09/01/2011 N Polychrom) 02:47:00) [facility]anoFqnvvhqYSNMOJVGUG5060-81-58 07:47:00 Test Item Value Reference Range Interpretation Comments Anisocyte (test code = 1+ *ABN*(09/01/2011 A Anisocyte) 02:47:00) [facility]anoTvtrwcyJXRHVRVFJL7530-64-07 07:47:00 Test Item Value Reference Range Interpretation Comments Large Plt (test code = Slight *ABN*(09/01/2011 A Large Plt) 02:47:00) [facility]anoUpodfzlRFIKHMHXTU1504-65-41 07:47:00 Test Item Value Reference Range Interpretation Comments Tear Cell (test code = Tear Cell) [facility]anoUkiiqmhSUCTNRWWLV3788-94-30 07:47:00 Test Item Value Reference Range Interpretation Comments Elliptocyte (test code = Slight A Elliptocyte) *ABN*(09/01/2011 02:47:00) [facility] GLUCOSE SHJQOEM1067-05-53 17:02:00 Test Item Value Reference Range Interpretation Comments Comment1 (test code = Comment1) Notify RN/ [facility] GLUCOSE DVTZVNN2820-28-50 17:02:00 Test Item Value Reference Range Interpretation Comments Gluc POC Lifscn (test code = Gluc POC 134 65-110 H Lifscn) [facility] GLUCOSE [id number] 17:02:00 Test Item Value Reference Range Interpretation Comments Comment1 (test code = Comment1) Notify RN/ [facility] GLUCOSE AXFHMFH0673-82-09 17:02:00 Test Item Value Reference Range Interpretation Comments Gluc POC Lifscn (test code = Gluc POC 134 65-110 H Lifscn) [facility] GLUCOSE IXNVYWD2735-47-47 17:02:00 Test Item Value Reference Range Interpretation Comments Comment1 (test code = Comment1) Notify RN/ [facility] GLUCOSE [id number] 17:02:00 Test Item Value Reference Range Interpretation Comments Gluc POC Lifscn (test code = Gluc POC 134 65-110 H Lifscn) [facility] GLUCOSE WXLPYDO0046-03-03 17:02:00 Test Item Value Reference Range Interpretation Comments Comment1 (test code = Comment1) Notify RN/ [facility] GLUCOSE [id number] 17:02:00 Test Item Value Reference Range Interpretation Comments Gluc POC Lifscn (test code = Gluc POC 134 65-110 H Lifscn) [facility] GLUCOSE JCWSWNH8369-65-66 17:02:00 Test Item Value Reference Range Interpretation Comments Comment1 (test code = Comment1) Notify RN/ [facility] GLUCOSE [id number] 17:02:00 Test Item Value Reference Range Interpretation Comments Gluc POC Lifscn (test code = Gluc POC 134 65-110 H Lifscn) [facility] GLUCOSE [id number] 13:45:00 Test Item Value Reference Range Interpretation Comments Gluc POC Lifscn (test code = Gluc POC 182 65-110 H Lifscn) [facility] GLUCOSE [id number] 13:45:00 Test Item Value Reference Range Interpretation Comments Comment1 (test code = Comment1) Notify RN/ [facility] GLUCOSE DCAJFJX6239-15-77 13:45:00 Test Item Value Reference Range Interpretation Comments Gluc POC Lifscn (test code = Gluc POC 182 65-110 H Lifscn) [facility] GLUCOSE [id number] 13:45:00 Test Item Value Reference Range Interpretation Comments Comment1 (test code = Comment1) Notify RN/ [facility] GLUCOSE [id number] 13:45:00 Test Item Value Reference Range Interpretation Comments Gluc POC Lifscn (test code = Gluc POC 182 65-110 H Lifscn) [facility] GLUCOSE [id number] 13:45:00 Test Item Value Reference Range Interpretation Comments Comment1 (test code = Comment1) Notify RN/ [facility] GLUCOSE [id number] 13:45:00 Test Item Value Reference Range Interpretation Comments Gluc POC Lifscn (test code = Gluc POC 182 65-110 H Lifscn) [facility] GLUCOSE [id number] 13:45:00 Test Item Value Reference Range Interpretation Comments Comment1 (test code = Comment1) Notify RN/ [facility] GLUCOSE [id number] 13:45:00 Test Item Value Reference Range Interpretation Comments Gluc POC Lifscn (test code = Gluc POC 182 65-110 H Lifscn) [facility] [id number] 13:45:00 Test Item Value Reference Range Interpretation Comments Comment1 (test code = Comment1) Ravi RN/ [facility] CenterPdxbqgbKEATZHYLM0453-46-07 10:22:00 Test Item Value Reference Range Interpretation Comments Phosphorus (test code = Phosphorus) 3.0 2.5-4.5 N [facility] CenterApkvqfbWCUBBNUTD5475-97-63 10:22:00 Test Item Value Reference Range Interpretation Comments Magnesium Lvl (test code = Magnesium 1.8 1.8-2.4 N Lvl) [facility] CenterUbofmucZYKKYQBOC2482-78-14 10:22:00 Test Item Value Reference Range Interpretation Comments Chloride Lvl (test code = Chloride Lvl) 107 95-109 N [facility] CenterJnoohhzLOKWPRNEA7055-69-30 10:22:00 Test Item Value Reference Range Interpretation Comments Potassium Lvl (test code = Potassium 3.0 3.5-5.1 A Lvl) [facility] CenterBkbvjwbOHEMKZBOU5747-98-26 10:22:00 Test Item Value Reference Range Interpretation Comments Sodium Lvl (test code = Sodium Lvl) 141 135-145 N [facility] CenterHijnurvOJJZEAWTR5224-24-02 10:22:00 Test Item Value Reference Range Interpretation Comments Creatinine Lvl (test code = Creatinine 0.6 0.5-1.4 N Lvl) [facility] CenterXtfgvdcDEJJUKPIZ8724-37-41 10:22:00 Test Item Value Reference Range Interpretation Comments CO2 (test code = CO2) 23 24-32 L [facility] CenterUlxiqkgZZUASKZOX9348-03-35 10:22:00 Test Item Value Reference Range Interpretation Comments Calcium Lvl (test code = Calcium Lvl) 7.3 8.5-10.5 L [facility] CenterGdxocuoIYMYGEEFF6674-89-94 10:22:00 Test Item Value Reference Range Interpretation Comments Glucose Lvl (test code = Glucose Lvl) 136 [facility] CenterGtltkpqBBUPZFIVR0833-79-66 10:22:00 Test Item Value Reference Range Interpretation Comments AGAP (test code = AGAP) 14.0 10.0-20.0 N [facility] CenterKbfhtjhAHXZXQSUP0147-61-00 10:22:00 Test Item Value Reference Range Interpretation Comments BUN (test code = BUN) 5 7-22 L [facility]anoYhqknrsISVHTRTKAF4763-40-23 10:22:00 Test Item Value Reference Range Interpretation Comments Segs (test code = Segs) 69.6 45.0-75.0 N [facility]anoQhvhtuzBCOJYOTHVK0470-70-98 10:22:00 Test Item Value Reference Range Interpretation Comments Lymphocytes (test code = Lymphocytes) 21.5 20.0-40.0 N [facility]anoSzjncfmIXMJPYUPNW4610-21-98 10:22:00 Test Item Value Reference Range Interpretation Comments Monocytes (test code = Monocytes) 7.6 2.0-12.0 N [facility]anoQkcvdyrIVLZTYJGTG8049-34-81 10:22:00 Test Item Value Reference Range Interpretation Comments Eosinophils (test code = 1.0 See_Comment N [A utomated message] The Eosinophils) system which ge nerated this result tra nsmitted reference range : <=4.0. The reference r leo was not used to int erpret this result as normal/abnormal . [facility]anoTwwxswfMLVJBBOGXG1922-53-60 10:22:00 Test Item Value Reference Range Interpretation Comments Basophils (test code = 0.3 See_Comment N [Aut omated message] The Basophils) system which ge nerated this result tra nsmitted reference range : <=1.0. The reference r leo was not used to int erpret this result as normal/abnormal . [facility]anoPbbochiWSKEBWFCTJ3669-23-58 10:22:00 Test Item Value Reference Range Interpretation Comments Segs-Bands # (test code = Segs-Bands #) 4.8 1.5-8.1 N [facility]anoIuaojgjPYNRFKHYGZ3191-82-03 10:22:00 Test Item Value Reference Range Interpretation Comments Eosinophils # (test code 0.1 See_Comment N [A utomated message] The = Eosinophils #) system whic h generated this result tra nsmitted reference range : <=0.5. The reference r leo was not used to int erpret this result as normal/abnormal . [facility]anoSrswyduEEFWWGZVPW5610-29-75 10:22:00 Test Item Value Reference Range Interpretation Comments Lymphocytes # (test code = Lymphocytes 1.5 1.0-5.5 N #) [facility]anoMkxwhhgVRTLMDTUEC0404-81-14 10:22:00 Test Item Value Reference Range Interpretation Comments Monocytes # (test code 0.5 See_Comment N [Aut omated message] The = Monocytes #) system which generated this result tra nsmitted reference range : <=0.8. The reference r leo was not used to int erpret this result as normal/abnormal . [facility]anoJculszpNCHODBQROX1018-10-74 10:22:00 Test Item Value Reference Range Interpretation Comments Basophils # (test code 0.0 See_Comment N [Aut omated message] The = Basophils #) system which generated this result tra nsmitted reference range : <=0.2. The reference r leo was not used to int erpret this result as normal/abnormal . [facility]anoMxgqxbnZNUZBGEFBW7288-92-02 10:22:00 Test Item Value Reference Range Interpretation Comments MPV (test code = MPV) 11.0 7.4-10.4 H [facility]anoIhecjirHUWUSHSFGI3975-09-08 10:22:00 Test Item Value Reference Range Interpretation Comments Platelet (test code = Platelet) 161 133-450 N [facility]anoOthttpdTZXSBFFXLL2297-32-92 10:22:00 Test Item Value Reference Range Interpretation Comments MCH (test code = MCH) 29.6 pg 27.0-31.0 N [facility]anoShzizrsAGVBNSJTUK6840-12-78 10:22:00 Test Item Value Reference Range Interpretation Comments MCHC (test code = MCHC) 35.4 32.0-36.0 N [facility]anoWnqoiomFXFASWCJKS5187-21-10 10:22:00 Test Item Value Reference Range Interpretation Comments RDW (test code = RDW) 14.1 11.5-14.5 N [facility]anoMmgmwuiYINNIOMCTA7516-91-84 10:22:00 Test Item Value Reference Range Interpretation Comments WBC (test code = WBC) 6.8 3.7-10.4 N [facility]anoOwtcthhXLSSOTZZBR0172-26-77 10:22:00 Test Item Value Reference Range Interpretation Comments MCV (test code = MCV) 83.5 81.0-99.0 N [facility]anoRqsatpwTPTVNAUZUN7957-66-64 10:22:00 Test Item Value Reference Range Interpretation Comments RBC (test code = RBC) 4.44 4.20-5.40 N [facility]anoRjczutyIXZKZLUFAC0669-15-64 10:22:00 Test Item Value Reference Range Interpretation Comments Hgb (test code = Hgb) 13.1 12.0-16.0 N [facility]vxqwcDWPBLHPHQN7521-83-32 10:22:00 Test Item Value Reference Range Interpretation Comments Hct (test code = Hct) 37.1 36.0-48.0 N [facility] CenterBnwmlotMNZNLLBXJ2354-43-50 10:22:00 Test Item Value Reference Range Interpretation Comments Phosphorus (test code = Phosphorus) 3.0 2.5-4.5 N [facility] CenterGgtrllsSZDIGPKFI2172-06-98 10:22:00 Test Item Value Reference Range Interpretation Comments Magnesium Lvl (test code = Magnesium 1.8 1.8-2.4 N Lvl) [facility] CenterQexvzwfTONQDZQDZ3844-13-93 10:22:00 Test Item Value Reference Range Interpretation Comments Chloride Lvl (test code = Chloride Lvl) 107 95-109 N [facility] CenterDoflcjhJYPPDBJUL8779-25-05 10:22:00 Test Item Value Reference Range Interpretation Comments Potassium Lvl (test code = Potassium 3.0 3.5-5.1 A Lvl) [facility] CenterCdwswetSNSMXOOYW4222-24-43 10:22:00 Test Item Value Reference Range Interpretation Comments Sodium Lvl (test code = Sodium Lvl) 141 135-145 N [facility] CenterOjexxcqOOARZZCWQ9118-57-95 10:22:00 Test Item Value Reference Range Interpretation Comments Creatinine Lvl (test code = Creatinine 0.6 0.5-1.4 N Lvl) [facility] CenterPmcvgaoXXBHMCKDN2131-66-54 10:22:00 Test Item Value Reference Range Interpretation Comments CO2 (test code = CO2) 23 24-32 L [facility] CenterRzursvoXGWSHSUKR6631-55-35 10:22:00 Test Item Value Reference Range Interpretation Comments Calcium Lvl (test code = Calcium Lvl) 7.3 8.5-10.5 L [facility] CenterEeralwpHQQDACMDI3238-86-50 10:22:00 Test Item Value Reference Range Interpretation Comments Glucose Lvl (test code = Glucose Lvl) 136 [facility] CenterIblymdrAUBARTKTM7734-70-31 10:22:00 Test Item Value Reference Range Interpretation Comments AGAP (test code = AGAP) 14.0 10.0-20.0 N [facility] CenterOtkmqkmWNUAZLCKC2337-51-08 10:22:00 Test Item Value Reference Range Interpretation Comments BUN (test code = BUN) 5 7-22 L [facility]anoKvszqhsHTCJZZAGUG5785-91-72 10:22:00 Test Item Value Reference Range Interpretation Comments Segs (test code = Segs) 69.6 45.0-75.0 N [facility]anoHjmsziyDZPORFPQXT4480-45-59 10:22:00 Test Item Value Reference Range Interpretation Comments Lymphocytes (test code = Lymphocytes) 21.5 20.0-40.0 N [facility]anoFcdbprsQZOKWDZCAK2926-99-31 10:22:00 Test Item Value Reference Range Interpretation Comments Monocytes (test code = Monocytes) 7.6 2.0-12.0 N [facility]anoGdnryfkYVFVEGSJJK0224-66-54 10:22:00 Test Item Value Reference Range Interpretation Comments Eosinophils (test code = 1.0 See_Comment N [A utomated message] The Eosinophils) system which ge nerated this result tra nsmitted reference range : <=4.0. The reference r leo was not used to int erpret this result as normal/abnormal . [facility]anoJocfonhADKJJDFWDC9274-84-82 10:22:00 Test Item Value Reference Range Interpretation Comments Basophils (test code = 0.3 See_Comment N [Aut omated message] The Basophils) system which ge nerated this result tra nsmitted reference range : <=1.0. The reference r leo was not used to int erpret this result as normal/abnormal . [facility]anoEmarfmoCHYYUVQRLD9035-71-98 10:22:00 Test Item Value Reference Range Interpretation Comments Segs-Bands # (test code = Segs-Bands #) 4.8 1.5-8.1 N [facility]anoQjpfcdpXZDKQACQTS9615-31-86 10:22:00 Test Item Value Reference Range Interpretation Comments Eosinophils # (test code 0.1 See_Comment N [A utomated message] The = Eosinophils #) system whic h generated this result tra nsmitted reference range : <=0.5. The reference r leo was not used to int erpret this result as normal/abnormal . [facility]anoYoazwkoSIAGFTSFZB8206-10-59 10:22:00 Test Item Value Reference Range Interpretation Comments Lymphocytes # (test code = Lymphocytes 1.5 1.0-5.5 N #) [facility]anoXounhhbOWXRHVJYZN2604-80-93 10:22:00 Test Item Value Reference Range Interpretation Comments Monocytes # (test code 0.5 See_Comment N [Aut omated message] The = Monocytes #) system which generated this result tra nsmitted reference range : <=0.8. The reference r leo was not used to int erpret this result as normal/abnormal . [facility] [place]ZxsprskQEDSPHRJDS7206-41-32 10:22:00 Test Item Value Reference Range Interpretation Comments Basophils # (test code 0.0 See_Comment N [Aut omated message] The = Basophils #) system which generated this result tra nsmitted reference range : <=0.2. The reference r leo was not used to int erpret this result as normal/abnormal . [facility] [place]TbukovqYPPGWWFVAP8767-96-23 10:22:00 Test Item Value Reference Range Interpretation Comments MPV (test code = MPV) 11.0 7.4-10.4 H [facility] [place]XitdfzhJTUFUQGDDP4557-76-38 10:22:00 Test Item Value Reference Range Interpretation Comments Platelet (test code = Platelet) 161 133-450 N [facility] [place]YwglgsqAGYOPAKFVY2027-90-42 10:22:00 Test Item Value Reference Range Interpretation Comments MCH (test code = MCH) 29.6 pg 27.0-31.0 N [facility] [place]JyttthjOVAWXYHLWZ3599-10-47 10:22:00 Test Item Value Reference Range Interpretation Comments MCHC (test code = MCHC) 35.4 32.0-36.0 N [facility] [place]anoYpwshtiRLAKWCNGGH9549-56-40 10:22:00 Test Item Value Reference Range Interpretation Comments RDW (test code = RDW) 14.1 11.5-14.5 N [facility] [place]anoPvudrkeZHLHKEOEUW8761-74-00 10:22:00 Test Item Value Reference Range Interpretation Comments WBC (test code = WBC) 6.8 3.7-10.4 N [facility] [place]anoSlrsdxkQNVVISUHQU0845-64-96 10:22:00 Test Item Value Reference Range Interpretation Comments MCV (test code = MCV) 83.5 81.0-99.0 N [facility] [place]anoHtsfvelVDWHJTRVDJ9543-84-09 10:22:00 Test Item Value Reference Range Interpretation Comments RBC (test code = RBC) 4.44 4.20-5.40 N [facility] [place]anoGuesjbwERTVNSGGQO2308-62-26 10:22:00 Test Item Value Reference Range Interpretation Comments Hgb (test code = Hgb) 13.1 12.0-16.0 N [facility] [place]OhnujexYQKRLTGRTE7119-70-47 10:22:00 Test Item Value Reference Range Interpretation Comments Hct (test code = Hct) 37.1 36.0-48.0 N [facility] CenterFrtvubtFWJHKMSQE5406-29-01 10:22:00 Test Item Value Reference Range Interpretation Comments Phosphorus (test code = Phosphorus) 3.0 2.5-4.5 N [facility] CenterBsyflctDVEDGUKFX3500-43-27 10:22:00 Test Item Value Reference Range Interpretation Comments Magnesium Lvl (test code = Magnesium 1.8 1.8-2.4 N Lvl) [facility] CenterVqubszzBTBSWZQNY0744-31-81 10:22:00 Test Item Value Reference Range Interpretation Comments Chloride Lvl (test code = Chloride Lvl) 107 95-109 N [facility] CenterAvdwjqzCFIGNVSKK5540-68-60 10:22:00 Test Item Value Reference Range Interpretation Comments Potassium Lvl (test code = Potassium 3.0 3.5-5.1 A Lvl) [facility] CenterRqvwckiVKPSPMEAJ6408-01-64 10:22:00 Test Item Value Reference Range Interpretation Comments Sodium Lvl (test code = Sodium Lvl) 141 135-145 N [facility] CenterZnqcsaqFLRPITBZT4575-28-01 10:22:00 Test Item Value Reference Range Interpretation Comments Creatinine Lvl (test code = Creatinine 0.6 0.5-1.4 N Lvl) [facility] CenterZuhscgtUNDHQZTVM4577-22-78 10:22:00 Test Item Value Reference Range Interpretation Comments CO2 (test code = CO2) 23 24-32 L [facility] CenterZrcpnuvDNGHZMMEB4335-01-37 10:22:00 Test Item Value Reference Range Interpretation Comments Calcium Lvl (test code = Calcium Lvl) 7.3 8.5-10.5 L [facility] CenterLfsozceFNHKPWWNP7746-47-03 10:22:00 Test Item Value Reference Range Interpretation Comments Glucose Lvl (test code = Glucose Lvl) 136 [facility] CenterEcydczdPPJDOCWFJ7489-56-42 10:22:00 Test Item Value Reference Range Interpretation Comments AGAP (test code = AGAP) 14.0 10.0-20.0 N [facility] CenterSkrgfujOKGJIFETL7025-49-57 10:22:00 Test Item Value Reference Range Interpretation Comments BUN (test code = BUN) 5 7-22 L [facility] [place]anoCldejeyVXKBAOIMJD3238-90-63 10:22:00 Test Item Value Reference Range Interpretation Comments Segs (test code = Segs) 69.6 45.0-75.0 N [facility] [place]SvqybmdJGJDWPZJEA9312-86-60 10:22:00 Test Item Value Reference Range Interpretation Comments Lymphocytes (test code = Lymphocytes) 21.5 20.0-40.0 N [facility] [place]anoSvvhnxxNPZZHLBWZQ6730-84-13 10:22:00 Test Item Value Reference Range Interpretation Comments Monocytes (test code = Monocytes) 7.6 2.0-12.0 N [facility] [place]anoGxfvrfhJGRZYSPELL3602-81-61 10:22:00 Test Item Value Reference Range Interpretation Comments Eosinophils (test code = 1.0 See_Comment N [A utomated message] The Eosinophils) system which ge nerated this result tra nsmitted reference range : <=4.0. The reference r leo was not used to int erpret this result as normal/abnormal . [facility] [place]anoPkksxevAVKAEJXPOP8286-68-08 10:22:00 Test Item Value Reference Range Interpretation Comments Basophils (test code = 0.3 See_Comment N [Aut omated message] The Basophils) system which ge nerated this result tra nsmitted reference range : <=1.0. The reference r leo was not used to int erpret this result as normal/abnormal . [facility] [place]anoYyacherIVFNRDFKOS1624-28-14 10:22:00 Test Item Value Reference Range Interpretation Comments Segs-Bands # (test code = Segs-Bands #) 4.8 1.5-8.1 N [facility] [place]anoRwpqzdsDMRZSQCKEM9519-59-80 10:22:00 Test Item Value Reference Range Interpretation Comments Eosinophils # (test code 0.1 See_Comment N [A utomated message] The = Eosinophils #) system whic h generated this result tra nsmitted reference range : <=0.5. The reference r leo was not used to int erpret this result as normal/abnormal . [facility] [place]anoKbhuhubBWQVHZUXKV9475-44-24 10:22:00 Test Item Value Reference Range Interpretation Comments Lymphocytes # (test code = Lymphocytes 1.5 1.0-5.5 N #) [facility] [place]anoFijsspsURVUGYXKBE3611-04-14 10:22:00 Test Item Value Reference Range Interpretation Comments Monocytes # (test code 0.5 See_Comment N [Aut omated message] The = Monocytes #) system which generated this result tra nsmitted reference range : <=0.8. The reference r leo was not used to int erpret this result as normal/abnormal . [facility] [place]anoAyekmyoVRQFXXRHQO5423-54-48 10:22:00 Test Item Value Reference Range Interpretation Comments Basophils # (test code 0.0 See_Comment N [Aut omated message] The = Basophils #) system which generated this result tra nsmitted reference range : <=0.2. The reference r leo was not used to int erpret this result as normal/abnormal . [facility] [place]anoRvybcwdMRPOWOHVJS5295-62-61 10:22:00 Test Item Value Reference Range Interpretation Comments MPV (test code = MPV) 11.0 7.4-10.4 H [facility] [place]anoBhstlhbITLZIKBCJI4455-67-01 10:22:00 Test Item Value Reference Range Interpretation Comments Platelet (test code = Platelet) 161 133-450 N [facility] [place]anoIwusgshIBPIVYDYLZ6032-75-83 10:22:00 Test Item Value Reference Range Interpretation Comments MCH (test code = MCH) 29.6 pg 27.0-31.0 N [facility] [place]SqeufdrOSJGZOWFDC4900-63-48 10:22:00 Test Item Value Reference Range Interpretation Comments MCHC (test code = MCHC) 35.4 32.0-36.0 N [facility] [place]anoPolgfmvPQNFGIKOPK9527-19-52 10:22:00 Test Item Value Reference Range Interpretation Comments RDW (test code = RDW) 14.1 11.5-14.5 N [facility] [place]anoZudrwdlCUZZCTEVBS3008-15-12 10:22:00 Test Item Value Reference Range Interpretation Comments WBC (test code = WBC) 6.8 3.7-10.4 N [facility] [place]QbhtkldIFCHOORSSG1273-30-37 10:22:00 Test Item Value Reference Range Interpretation Comments MCV (test code = MCV) 83.5 81.0-99.0 N [facility] [place]anoIrdrmreGECKPOUMBI3176-47-95 10:22:00 Test Item Value Reference Range Interpretation Comments RBC (test code = RBC) 4.44 4.20-5.40 N [facility] [place]anoNqaumcrGALRSVJHHZ1614-57-90 10:22:00 Test Item Value Reference Range Interpretation Comments Hgb (test code = Hgb) 13.1 12.0-16.0 N [facility] [place]anoNqjifviJKXVMRNZGM6728-39-01 10:22:00 Test Item Value Reference Range Interpretation Comments Hct (test code = Hct) 37.1 36.0-48.0 N [facility] CenterRbuhdxjAXFDIPNKQ6669-02-36 10:22:00 Test Item Value Reference Range Interpretation Comments Phosphorus (test code = Phosphorus) 3.0 2.5-4.5 N [facility] CenterChxaoswFPYBPENWT1393-65-04 10:22:00 Test Item Value Reference Range Interpretation Comments Magnesium Lvl (test code = Magnesium 1.8 1.8-2.4 N Lvl) [facility] CenterBuvancoPXYWWSEFK4444-86-38 10:22:00 Test Item Value Reference Range Interpretation Comments Chloride Lvl (test code = Chloride Lvl) 107 95-109 N [facility] CenterRjgxmbyTVBRWKUXW0463-82-50 10:22:00 Test Item Value Reference Range Interpretation Comments Potassium Lvl (test code = Potassium 3.0 3.5-5.1 A Lvl) [facility] CenterKkrmiijPXHXEULVN3298-18-11 10:22:00 Test Item Value Reference Range Interpretation Comments Sodium Lvl (test code = Sodium Lvl) 141 135-145 N [facility] CenterLwwcvqcGKAHNTSYP4189-08-19 10:22:00 Test Item Value Reference Range Interpretation Comments Creatinine Lvl (test code = Creatinine 0.6 0.5-1.4 N Lvl) [facility] CenterUfawanaVSQBANZZD9970-25-36 10:22:00 Test Item Value Reference Range Interpretation Comments CO2 (test code = CO2) 23 24-32 L [facility] CenterSahwgvnCKTYXKVFQ9520-27-81 10:22:00 Test Item Value Reference Range Interpretation Comments Calcium Lvl (test code = Calcium Lvl) 7.3 8.5-10.5 L [facility] CenterXufwvigLNKQBKGYY0670-85-10 10:22:00 Test Item Value Reference Range Interpretation Comments Glucose Lvl (test code = Glucose Lvl) 136 [facility] CenterLqpsfsfHTGCAYDFP6271-34-80 10:22:00 Test Item Value Reference Range Interpretation Comments AGAP (test code = AGAP) 14.0 10.0-20.0 N [facility] CenterOzanqupICABCPZLP4566-53-09 10:22:00 Test Item Value Reference Range Interpretation Comments BUN (test code = BUN) 5 7-22 L [facility] [place]anoTpolpqlWKEPIHLAMS5193-70-62 10:22:00 Test Item Value Reference Range Interpretation Comments Segs (test code = Segs) 69.6 45.0-75.0 N [facility] [place]anoWekvuxtBOKBSCHCIM8270-64-37 10:22:00 Test Item Value Reference Range Interpretation Comments Lymphocytes (test code = Lymphocytes) 21.5 20.0-40.0 N [facility] [place]anoKvptrjgQOSLQUCOQK3569-08-62 10:22:00 Test Item Value Reference Range Interpretation Comments Monocytes (test code = Monocytes) 7.6 2.0-12.0 N [facility] [place]anoTjrhezcOJAMIEOVZB5395-81-50 10:22:00 Test Item Value Reference Range Interpretation Comments Eosinophils (test code = 1.0 See_Comment N [A utomated message] The Eosinophils) system which ge nerated this result tra nsmitted reference range : <=4.0. The reference r leo was not used to int erpret this result as normal/abnormal . [facility] [place]anoVybybgfBNBZEYINWL4653-54-81 10:22:00 Test Item Value Reference Range Interpretation Comments Basophils (test code = 0.3 See_Comment N [Aut omated message] The Basophils) system which ge nerated this result tra nsmitted reference range : <=1.0. The reference r leo was not used to int erpret this result as normal/abnormal . [facility] [place]anoYhlcqvfYRADJUTMAJ6451-85-53 10:22:00 Test Item Value Reference Range Interpretation Comments Segs-Bands # (test code = Segs-Bands #) 4.8 1.5-8.1 N [facility] [place]anoEseyypmDTUGNWBJJC6845-95-87 10:22:00 Test Item Value Reference Range Interpretation Comments Eosinophils # (test code 0.1 See_Comment N [A utomated message] The = Eosinophils #) system ic h generated this result tra nsmitted reference range : <=0.5. The reference r leo was not used to int erpret this result as normal/abnormal . [facility] [place]anoEvxylzmXHKZUDIKNF7407-32-98 10:22:00 Test Item Value Reference Range Interpretation Comments Lymphocytes # (test code = Lymphocytes 1.5 1.0-5.5 N #) [facility] [place]anoYfhctlfSWNMCIZOXA9955-76-55 10:22:00 Test Item Value Reference Range Interpretation Comments Monocytes # (test code 0.5 See_Comment N [Aut omated message] The = Monocytes #) system which generated this result tra nsmitted reference range : <=0.8. The reference r leo was not used to int erpret this result as normal/abnormal . [facility] [place]QiexgmcCWDWBGTRCI8625-84-08 10:22:00 Test Item Value Reference Range Interpretation Comments Basophils # (test code 0.0 See_Comment N [Aut omated message] The = Basophils #) system which generated this result tra nsmitted reference range : <=0.2. The reference r leo was not used to int erpret this result as normal/abnormal . [facility] [place]anoNdpxganEULTAARKBX5907-60-79 10:22:00 Test Item Value Reference Range Interpretation Comments MPV (test code = MPV) 11.0 7.4-10.4 H [facility] [place]anoFtxduipGHTSCKARDM5351-01-85 10:22:00 Test Item Value Reference Range Interpretation Comments Platelet (test code = Platelet) 161 133-450 N [facility] [place]anoQpbtvqtYFETGOOTRV9414-29-67 10:22:00 Test Item Value Reference Range Interpretation Comments MCH (test code = MCH) 29.6 pg 27.0-31.0 N [facility] [place]anoEziwnsuQFOBCGHANE8034-15-27 10:22:00 Test Item Value Reference Range Interpretation Comments MCHC (test code = MCHC) 35.4 32.0-36.0 N [facility] [place]anoRztuhwcRRTNVBRBPL3252-69-45 10:22:00 Test Item Value Reference Range Interpretation Comments RDW (test code = RDW) 14.1 11.5-14.5 N [facility] [place]anoLpgyogkDUFJFWXWHF1289-59-79 10:22:00 Test Item Value Reference Range Interpretation Comments WBC (test code = WBC) 6.8 3.7-10.4 N [facility] [place]anoLevxfipQHWRJATBYD3222-85-56 10:22:00 Test Item Value Reference Range Interpretation Comments MCV (test code = MCV) 83.5 81.0-99.0 N [facility] [place]anoEodlqqkWFYFJFPYTQ4101-38-26 10:22:00 Test Item Value Reference Range Interpretation Comments RBC (test code = RBC) 4.44 4.20-5.40 N [facility] [place]anoGthhcrwSWJGYPJMZP6496-05-31 10:22:00 Test Item Value Reference Range Interpretation Comments Hgb (test code = Hgb) 13.1 12.0-16.0 N [facility] [place]anoTrscssdPQPWIHRYYL8346-41-80 10:22:00 Test Item Value Reference Range Interpretation Comments Hct (test code = Hct) 37.1 36.0-48.0 N [facility] CenterUibihsuNFOBFJAMD9508-31-35 10:22:00 Test Item Value Reference Range Interpretation Comments Phosphorus (test code = Phosphorus) 3.0 2.5-4.5 N [facility] CenterOpmryadJFYHOBEUA2117-26-16 10:22:00 Test Item Value Reference Range Interpretation Comments Magnesium Lvl (test code = Magnesium 1.8 1.8-2.4 N Lvl) [facility] CenterRkjetotIMIUSHUYN3319-01-99 10:22:00 Test Item Value Reference Range Interpretation Comments Chloride Lvl (test code = Chloride Lvl) 107 95-109 N [facility] CenterLqimhgsDZIGOOBQI2469-90-98 10:22:00 Test Item Value Reference Range Interpretation Comments Potassium Lvl (test code = Potassium 3.0 3.5-5.1 A Lvl) [facility] CenterZeatlqxUOPLKFTJY6851-67-17 10:22:00 Test Item Value Reference Range Interpretation Comments Sodium Lvl (test code = Sodium Lvl) 141 135-145 N [facility] CenterTdkjbwvRDKWPLTHX8907-82-91 10:22:00 Test Item Value Reference Range Interpretation Comments Creatinine Lvl (test code = Creatinine 0.6 0.5-1.4 N Lvl) [facility] CenterGtbwadhFUBVBWKWX7963-85-17 10:22:00 Test Item Value Reference Range Interpretation Comments CO2 (test code = CO2) 23 24-32 L [facility] CenterWwmvinvVLDQCBSOS5566-03-86 10:22:00 Test Item Value Reference Range Interpretation Comments Calcium Lvl (test code = Calcium Lvl) 7.3 8.5-10.5 L [facility] CenterPctykoaQAISYPNHZ6925-64-56 10:22:00 Test Item Value Reference Range Interpretation Comments Glucose Lvl (test code = Glucose Lvl) 136 [facility] CenterAzwxqsiICBFEETEX2798-45-44 10:22:00 Test Item Value Reference Range Interpretation Comments AGAP (test code = AGAP) 14.0 10.0-20.0 N [facility] CenterPqjgavpSPPWOEKDG3716-71-81 10:22:00 Test Item Value Reference Range Interpretation Comments BUN (test code = BUN) 5 7-22 [facility]gh[facility]fEORXJEUDLS8267-42-58 10:22:00 Test Item Value Reference Range Interpretation Comments Segs (test code = Segs) 69.6 45.0-75.0 N [facility] [place]anoJfchcxiUMXLAQBJMJ8542-57-34 10:22:00 Test Item Value Reference Range Interpretation Comments Lymphocytes (test code = Lymphocytes) 21.5 20.0-40.0 N [facility] [place]anoDxzhsxzBVNGRZENOV9326-12-74 10:22:00 Test Item Value Reference Range Interpretation Comments Monocytes (test code = Monocytes) 7.6 2.0-12.0 N [facility] [place]anoNyvczerRVRBKBCDTC1565-87-44 10:22:00 Test Item Value Reference Range Interpretation Comments Eosinophils (test code = 1.0 See_Comment N [A utomated message] The Eosinophils) system which ge nerated this result tra nsmitted reference range : <=4.0. The reference r leo was not used to int erpret this result as normal/abnormal . [facility] [place]anoFgmatbkKGTHLJEJZO7684-03-48 10:22:00 Test Item Value Reference Range Interpretation Comments Basophils (test code = 0.3 See_Comment N [Aut omated message] The Basophils) system which ge nerated this result tra nsmitted reference range : <=1.0. The reference r leo was not used to int erpret this result as normal/abnormal . [facility] [place]anoIbhyfvjWXRHWZHDQU9883-80-06 10:22:00 Test Item Value Reference Range Interpretation Comments Segs-Bands # (test code = Segs-Bands #) 4.8 1.5-8.1 N [facility] [place]anoDmpuxbnLCJZSMTYWE9583-03-25 10:22:00 Test Item Value Reference Range Interpretation Comments Eosinophils # (test code 0.1 See_Comment N [A utomated message] The = Eosinophils #) system whic h generated this result tra nsmitted reference range : <=0.5. The reference r leo was not used to int erpret this result as normal/abnormal . [facility] [place]anoFamluhuYXTTSYKNKP4541-97-62 10:22:00 Test Item Value Reference Range Interpretation Comments Lymphocytes # (test code = Lymphocytes 1.5 1.0-5.5 N #) [facility] [place]anoNyhvvlfPXQPERREOV5004-76-43 10:22:00 Test Item Value Reference Range Interpretation Comments Monocytes # (test code 0.5 See_Comment N [Aut omated message] The = Monocytes #) system which generated this result tra nsmitted reference range : <=0.8. The reference r leo was not used to int erpret this result as normal/abnormal . [facility] [place]anoSginhoaLRHMOCNDGF9519-73-01 10:22:00 Test Item Value Reference Range Interpretation Comments Basophils # (test code 0.0 See_Comment N [Aut omated message] The = Basophils #) system which generated this result tra nsmitted reference range : <=0.2. The reference r leo was not used to int erpret this result as normal/abnormal . [facility] [place]anoXwdosdwTEPZYWFKUV7111-98-95 10:22:00 Test Item Value Reference Range Interpretation Comments MPV (test code = MPV) 11.0 7.4-10.4 H [facility] [place]anoCfhukytHVNMAMQEBT9953-07-94 10:22:00 Test Item Value Reference Range Interpretation Comments Platelet (test code = Platelet) 161 133-450 N [facility] [place]anoRiqzadlJJOUJJMNSY1999-30-06 10:22:00 Test Item Value Reference Range Interpretation Comments MCH (test code = MCH) 29.6 pg 27.0-31.0 N [facility] [place]anoAwvguyyISPILAYFZI6158-77-85 10:22:00 Test Item Value Reference Range Interpretation Comments MCHC (test code = MCHC) 35.4 32.0-36.0 N [facility] [place]anoYtocklmENBLKLDCTE8441-87-25 10:22:00 Test Item Value Reference Range Interpretation Comments RDW (test code = RDW) 14.1 11.5-14.5 N [facility] PlanoBlpybkyXKXXRKMIML4023-88-24 10:22:00 Test Item Value Reference Range Interpretation Comments WBC (test code = WBC) 6.8 3.7-10.4 N [facility] [place]anoMuwstvaGDYSLINSCV1019-64-78 10:22:00 Test Item Value Reference Range Interpretation Comments MCV (test code = MCV) 83.5 81.0-99.0 N [facility] PlanoRarsbctLZDSCFLYPX7719-44-18 10:22:00 Test Item Value Reference Range Interpretation Comments RBC (test code = RBC) 4.44 4.20-5.40 N [facility] [place]anoIizoemgSVREETWDGW6445-42-47 10:22:00 Test Item Value Reference Range Interpretation Comments Hgb (test code = Hgb) 13.1 12.0-16.0 N [facility] [place]anoKeufbdtLSMESJUNJJ5251-91-17 10:22:00 Test Item Value Reference Range Interpretation Comments Hct (test code = Hct) 37.1 36.0-48.0 N [facility] GLUCOSE AHMNFJX4605-62-98 02:20:00 Test Item Value Reference Range Interpretation Comments Comment1 (test code = Comment1) Notify RN/ [facility] GLUCOSE VQABTZN5298-80-74 02:20:00 Test Item Value Reference Range Interpretation Comments Gluc POC Lifscn (test code = Gluc POC 332 65-110 H Lifscn) [facility] GLUCOSE LVKJMQP6839-35-83 02:20:00 Test Item Value Reference Range Interpretation Comments Comment1 (test code = Comment1) Notify RN/ [facility] GLUCOSE IQMEFNQ9507-18-38 02:20:00 Test Item Value Reference Range Interpretation Comments Gluc POC Lifscn (test code = Gluc POC 332 65-110 H Lifscn) [facility] GLUCOSE WGHSXZN8528-17-30 02:20:00 Test Item Value Reference Range Interpretation Comments Comment1 (test code = Comment1) Notify RN/ [facility] GLUCOSE UHZVLBG1241-20-74 02:20:00 Test Item Value Reference Range Interpretation Comments Gluc POC Lifscn (test code = Gluc POC 332 65-110 H Lifscn) [facility] GLUCOSE FTRRSGS7467-27-34 02:20:00 Test Item Value Reference Range Interpretation Comments Comment1 (test code = Comment1) Notify RN/ [facility] GLUCOSE ZIJDOCX4267-52-72 02:20:00 Test Item Value Reference Range Interpretation Comments Gluc POC Lifscn (test code = Gluc POC 332 65-110 H Lifscn) [facility] GLUCOSE [id number] 02:20:00 Test Item Value Reference Range Interpretation Comments Comment1 (test code = Comment1) Notify RN/ [facility] GLUCOSE KBGESYI2197-60-33 02:20:00 Test Item Value Reference Range Interpretation Comments Gluc POC Lifscn (test code = Gluc POC 332 65-110 H Lifscn) [facility] CenterWpbxylrBYBFSSEPQ2301-83-47 09:47:00 Test Item Value Reference Range Interpretation Comments Phosphorus (test code = Phosphorus) 2.5 2.5-4.5 N [facility] CenterHrsjsziJAWTHLRTN9386-70-92 09:47:00 Test Item Value Reference Range Interpretation Comments Glucose Lvl (test code = Glucose Lvl) 201 [facility] CenterTqgbevyOXAHRBYAA0056-50-92 09:47:00 Test Item Value Reference Range Interpretation Comments BUN (test code = BUN) 7 7-22 N [facility] CenterMvztlrdNXQLSJNVG1596-63-72 09:47:00 Test Item Value Reference Range Interpretation Comments CO2 (test code = CO2) 19 24-32 L [facility] CenterCcjlqyvTCSHCKCLK8980-84-71 09:47:00 Test Item Value Reference Range Interpretation Comments Creatinine Lvl (test code = Creatinine 0.3 0.5-1.4 L Lvl) [facility] CenterPmcvfwzGNUHMZOFB0183-90-01 09:47:00 Test Item Value Reference Range Interpretation Comments Sodium Lvl (test code = Sodium Lvl) 137 135-145 N [facility] CenterLntoaccMWFWDCCMQ8556-51-67 09:47:00 Test Item Value Reference Range Interpretation Comments Chloride Lvl (test code = Chloride Lvl) 103 95-109 N [facility] CenterSktzzuuANYXLHAYV1885-71-56 09:47:00 Test Item Value Reference Range Interpretation Comments Potassium Lvl (test code = Potassium 3.6 3.5-5.1 N Lvl) [facility] CenterUtukeyyFHBRDTKGF4962-11-99 09:47:00 Test Item Value Reference Range Interpretation Comments Calcium Lvl (test code = Calcium Lvl) 7.9 8.5-10.5 L [facility] CenterUyyzmlnZFQDZFYWO2872-34-74 09:47:00 Test Item Value Reference Range Interpretation Comments AGAP (test code = AGAP) 18.6 10.0-20.0 N [facility] CenterUqwriozOXWSMQHXM1177-21-83 09:47:00 Test Item Value Reference Range Interpretation Comments Magnesium Lvl (test code = Magnesium 1.6 1.8-2.4 L Lvl) [facility]RncfuscNJAPVBOZZV0041-21-65 09:47:00 Test Item Value Reference Range Interpretation Comments Basophils # (test code 0.0 See_Comment N [Aut omated message] The = Basophils #) system which generated this result tra nsmitted reference range : <=0.2. The reference r leo was not used to int erpret this result as normal/abnormal . [facility]anoUsfxnipRRUQHCHLYK4468-63-12 09:47:00 Test Item Value Reference Range Interpretation Comments Eosinophils (test code = 0.4 See_Comment N [A utomated message] The Eosinophils) system which ge nerated this result tra nsmitted reference range : <=4.0. The reference r leo was not used to int erpret this result as normal/abnormal . [facility]anoZwirfmxPTXUEYDOBF1929-20-62 09:47:00 Test Item Value Reference Range Interpretation Comments Basophils (test code = 0.5 See_Comment N [Aut omated message] The Basophils) system which ge nerated this result tra nsmitted reference range : <=1.0. The reference r leo was not used to int erpret this result as normal/abnormal . [facility]anoDcrrkbtWVHFTFQDNN6705-98-68 09:47:00 Test Item Value Reference Range Interpretation Comments Segs-Bands # (test code = Segs-Bands #) 5.9 1.5-8.1 N [facility]anoUytknjoGDDRTSSQTZ0830-94-74 09:47:00 Test Item Value Reference Range Interpretation Comments Lymphocytes # (test code = Lymphocytes 1.2 1.0-5.5 N #) [facility]anoIauhofrLJPYNCQZKU6538-57-38 09:47:00 Test Item Value Reference Range Interpretation Comments Monocytes # (test code 0.5 See_Comment N [Aut omated message] The = Monocytes #) system which generated this result tra nsmitted reference range : <=0.8. The reference r leo was not used to int erpret this result as normal/abnormal . [facility]anoIrdlhnqSTAZGYLJMT0758-48-80 09:47:00 Test Item Value Reference Range Interpretation Comments Eosinophils # (test code 0.0 See_Comment N [A utomated message] The = Eosinophils #) system whic h generated this result tra nsmitted reference range : <=0.5. The reference r leo was not used to int erpret this result as normal/abnormal . [facility]anoFqmvtyfPLEUXHBTRO2754-93-79 09:47:00 Test Item Value Reference Range Interpretation Comments Segs (test code = Segs) 76.9 45.0-75.0 H [facility]anoQqenbskKHVPMXQTLS5655-35-02 09:47:00 Test Item Value Reference Range Interpretation Comments Lymphocytes (test code = Lymphocytes) 15.9 20.0-40.0 L [facility]anoSihrcpnXDTMORVCUU6253-68-99 09:47:00 Test Item Value Reference Range Interpretation Comments Monocytes (test code = Monocytes) 6.3 2.0-12.0 N [facility]anoBqmwmcuYTEANQCXUA2864-55-79 09:47:00 Test Item Value Reference Range Interpretation Comments MCV (test code = MCV) 82.8 81.0-99.0 N [facility]anoOasayxhYMVNHTQJAC3999-62-31 09:47:00 Test Item Value Reference Range Interpretation Comments Hct (test code = Hct) 39.7 36.0-48.0 N [facility]anoIywliaoRNIPWMOKRR5482-54-01 09:47:00 Test Item Value Reference Range Interpretation Comments MCH (test code = MCH) 29.1 pg 27.0-31.0 N [facility]anoYfhydiyFOKXWRSEAE0604-23-48 09:47:00 Test Item Value Reference Range Interpretation Comments Hgb (test code = Hgb) 14.0 12.0-16.0 N [facility]anoQhctdzwAVQSVFQQUI2485-10-27 09:47:00 Test Item Value Reference Range Interpretation Comments MCHC (test code = MCHC) 35.2 32.0-36.0 N [facility]anoIxeqlifRDFDCPCLSN3064-72-15 09:47:00 Test Item Value Reference Range Interpretation Comments RDW (test code = RDW) 13.9 11.5-14.5 N [facility]anoEebbdqnRFUFXRPVQV0642-17-85 09:47:00 Test Item Value Reference Range Interpretation Comments Platelet (test code = Platelet) 160 133-450 N [facility]anoUqhxjqrGHSAELBIJG4325-54-65 09:47:00 Test Item Value Reference Range Interpretation Comments MPV (test code = MPV) 11.9 7.4-10.4 H [facility]anoWabnjbyCRVONYSTWE0415-17-28 09:47:00 Test Item Value Reference Range Interpretation Comments WBC (test code = WBC) 7.7 3.7-10.4 N [facility]anoBzrzzenQTSWWGBVMN2619-54-27 09:47:00 Test Item Value Reference Range Interpretation Comments RBC (test code = RBC) 4.80 4.20-5.40 N [facility] CenterNrgylleMCNYTCLJN5001-88-02 09:47:00 Test Item Value Reference Range Interpretation Comments Phosphorus (test code = Phosphorus) 2.5 2.5-4.5 N [facility] CenterMnorjxgEGJELPFPK5851-55-00 09:47:00 Test Item Value Reference Range Interpretation Comments Glucose Lvl (test code = Glucose Lvl) 201 [facility] CenterVakyqopNYHBXJVUR4769-77-96 09:47:00 Test Item Value Reference Range Interpretation Comments BUN (test code = BUN) 7 7-22 N [facility] CenterGaaesglIQCZYHQUI0949-47-04 09:47:00 Test Item Value Reference Range Interpretation Comments CO2 (test code = CO2) 19 24-32 L [facility] CenterIfhzxkfYUTQZRQAJ0626-90-93 09:47:00 Test Item Value Reference Range Interpretation Comments Creatinine Lvl (test code = Creatinine 0.3 0.5-1.4 L Lvl) [facility] CenterKbtyhrzIYUTIQUMF0206-36-14 09:47:00 Test Item Value Reference Range Interpretation Comments Sodium Lvl (test code = Sodium Lvl) 137 135-145 N [facility] CenterHedhbkyQMMVWLLRJ0350-18-67 09:47:00 Test Item Value Reference Range Interpretation Comments Chloride Lvl (test code = Chloride Lvl) 103 95-109 N [facility] CenterEviwtntCCYLASVLL2443-61-94 09:47:00 Test Item Value Reference Range Interpretation Comments Potassium Lvl (test code = Potassium 3.6 3.5-5.1 N Lvl) [facility] CenterVxxxyjeITPQXLZZV9762-16-02 09:47:00 Test Item Value Reference Range Interpretation Comments Calcium Lvl (test code = Calcium Lvl) 7.9 8.5-10.5 L [facility] CenterJtrkrcuEEOAVWLUO3365-94-01 09:47:00 Test Item Value Reference Range Interpretation Comments AGAP (test code = AGAP) 18.6 10.0-20.0 N [facility] CenterZnpppvuWOCETKVZI4570-36-93 09:47:00 Test Item Value Reference Range Interpretation Comments Magnesium Lvl (test code = Magnesium 1.6 1.8-2.4 L Lvl) [facility]anoXazfcblOLWJSARNNM7864-34-87 09:47:00 Test Item Value Reference Range Interpretation Comments Basophils # (test code 0.0 See_Comment N [Aut omated message] The = Basophils #) system which generated this result tra nsmitted reference range : <=0.2. The reference r leo was not used to int erpret this result as normal/abnormal . [facility]anoAqkwunzQHPMTBARQQ5917-93-50 09:47:00 Test Item Value Reference Range Interpretation Comments Eosinophils (test code = 0.4 See_Comment N [A utomated message] The Eosinophils) system which ge nerated this result tra nsmitted reference range : <=4.0. The reference r leo was not used to int erpret this result as normal/abnormal . [facility]anoAhokdnnUBQIXJSQUN4521-85-38 09:47:00 Test Item Value Reference Range Interpretation Comments Basophils (test code = 0.5 See_Comment N [Aut omated message] The Basophils) system which ge nerated this result tra nsmitted reference range : <=1.0. The reference r leo was not used to int erpret this result as normal/abnormal . [facility]anoZoxvkgdHMNLHRDWTY5801-71-48 09:47:00 Test Item Value Reference Range Interpretation Comments Segs-Bands # (test code = Segs-Bands #) 5.9 1.5-8.1 N [facility]anoEeqsbvfYGBSJNKADD4344-05-89 09:47:00 Test Item Value Reference Range Interpretation Comments Lymphocytes # (test code = Lymphocytes 1.2 1.0-5.5 N #) [facility]anoAizhrmyOIJZQAWORT8028-91-21 09:47:00 Test Item Value Reference Range Interpretation Comments Monocytes # (test code 0.5 See_Comment N [Aut omated message] The = Monocytes #) system which generated this result tra nsmitted reference range : <=0.8. The reference r leo was not used to int erpret this result as normal/abnormal . [facility]anoBwsobycFMMCUCAXAO2223-30-48 09:47:00 Test Item Value Reference Range Interpretation Comments Eosinophils # (test code 0.0 See_Comment N [A utomated message] The = Eosinophils #) system whic h generated this result tra nsmitted reference range : <=0.5. The reference r leo was not used to int erpret this result as normal/abnormal . [facility]anoVgsrepjGKOFZKRFHL3585-25-41 09:47:00 Test Item Value Reference Range Interpretation Comments Segs (test code = Segs) 76.9 45.0-75.0 H [facility]anoFkorlapZBVLLTFEAT3658-33-61 09:47:00 Test Item Value Reference Range Interpretation Comments Lymphocytes (test code = Lymphocytes) 15.9 20.0-40.0 L [facility]anoGnphoyoKXHVSPKXYV0417-24-12 09:47:00 Test Item Value Reference Range Interpretation Comments Monocytes (test code = Monocytes) 6.3 2.0-12.0 N [facility]anoBlytcbyGYIWJMDCCP6577-02-25 09:47:00 Test Item Value Reference Range Interpretation Comments MCV (test code = MCV) 82.8 81.0-99.0 N [facility]anoVehlgepNURWKWINSU8545-41-15 09:47:00 Test Item Value Reference Range Interpretation Comments Hct (test code = Hct) 39.7 36.0-48.0 N [facility]anoZfmjpmuZPRHHOJDMY9119-85-02 09:47:00 Test Item Value Reference Range Interpretation Comments MCH (test code = MCH) 29.1 pg 27.0-31.0 N [facility]anoXjfkgbzILLRVGOMYV8022-09-12 09:47:00 Test Item Value Reference Range Interpretation Comments Hgb (test code = Hgb) 14.0 12.0-16.0 N [facility]anoRonokgvIOSBHKHJFN7411-40-12 09:47:00 Test Item Value Reference Range Interpretation Comments MCHC (test code = MCHC) 35.2 32.0-36.0 N [facility]anoNtbljicEODXIXSGTI2895-42-68 09:47:00 Test Item Value Reference Range Interpretation Comments RDW (test code = RDW) 13.9 11.5-14.5 N [facility]anoMnrwjonYWAVRJTPLU8836-29-34 09:47:00 Test Item Value Reference Range Interpretation Comments Platelet (test code = Platelet) 160 133-450 N [facility]anoUprmxfjEUDFTXJRJL3374-37-29 09:47:00 Test Item Value Reference Range Interpretation Comments MPV (test code = MPV) 11.9 7.4-10.4 H [facility]anoUlmxdoiRVKGYJBXSH0222-30-38 09:47:00 Test Item Value Reference Range Interpretation Comments WBC (test code = WBC) 7.7 3.7-10.4 N [facility]anoAidcwfaSZALKXDQAY6400-03-32 09:47:00 Test Item Value Reference Range Interpretation Comments RBC (test code = RBC) 4.80 4.20-5.40 N [facility] CenterVdzojmnAFOSTZLFU5888-05-03 09:47:00 Test Item Value Reference Range Interpretation Comments Phosphorus (test code = Phosphorus) 2.5 2.5-4.5 N [facility] CenterKugdlmnVKQVAUWBB7200-54-65 09:47:00 Test Item Value Reference Range Interpretation Comments Glucose Lvl (test code = Glucose Lvl) 201 [facility] CenterEjnffyaIQYSMWCDD7856-49-91 09:47:00 Test Item Value Reference Range Interpretation Comments BUN (test code = BUN) 7 7-22 N [facility] CenterCrrlhjzVLIGYMWPL5892-81-60 09:47:00 Test Item Value Reference Range Interpretation Comments CO2 (test code = CO2) 19 24-32 L [facility] CenterKwgwnqbWIHTRZVYE2428-53-72 09:47:00 Test Item Value Reference Range Interpretation Comments Creatinine Lvl (test code = Creatinine 0.3 0.5-1.4 L Lvl) [facility] CenterWhhjmcnLKPTURNOM3118-04-30 09:47:00 Test Item Value Reference Range Interpretation Comments Sodium Lvl (test code = Sodium Lvl) 137 135-145 N [facility] CenterSokuallFHEJCUPBV6326-94-30 09:47:00 Test Item Value Reference Range Interpretation Comments Chloride Lvl (test code = Chloride Lvl) 103 95-109 N [facility] CenterPtapnntBFNAKMPSJ4346-58-92 09:47:00 Test Item Value Reference Range Interpretation Comments Potassium Lvl (test code = Potassium 3.6 3.5-5.1 N Lvl) [facility] CenterSkvpcjdKQMTJJCXN1308-33-81 09:47:00 Test Item Value Reference Range Interpretation Comments Calcium Lvl (test code = Calcium Lvl) 7.9 8.5-10.5 L [facility] CenterWstfqjcOTLXHZRLW9635-88-67 09:47:00 Test Item Value Reference Range Interpretation Comments AGAP (test code = AGAP) 18.6 10.0-20.0 N [facility] CenterZowvxnvSJCMDIRQS0424-19-80 09:47:00 Test Item Value Reference Range Interpretation Comments Magnesium Lvl (test code = Magnesium 1.6 1.8-2.4 L Lvl) [facility]anoFedzjcrBIUEVIQEDH0822-80-51 09:47:00 Test Item Value Reference Range Interpretation Comments Basophils # (test code 0.0 See_Comment N [Aut omated message] The = Basophils #) system which generated this result tra nsmitted reference range : <=0.2. The reference r leo was not used to int erpret this result as normal/abnormal . [facility]anoLewcruxYLFRUSVVMJ3859-10-94 09:47:00 Test Item Value Reference Range Interpretation Comments Eosinophils (test code = 0.4 See_Comment N [A utomated message] The Eosinophils) system which ge nerated this result tra nsmitted reference range : <=4.0. The reference r leo was not used to int erpret this result as normal/abnormal . [facility]anoTxlxeyxYLRQUQBTUP0973-78-99 09:47:00 Test Item Value Reference Range Interpretation Comments Basophils (test code = 0.5 See_Comment N [Aut omated message] The Basophils) system which ge nerated this result tra nsmitted reference range : <=1.0. The reference r leo was not used to int erpret this result as normal/abnormal . [facility]anoFlxciwvCPPRDYJSPW0724-02-04 09:47:00 Test Item Value Reference Range Interpretation Comments Segs-Bands # (test code = Segs-Bands #) 5.9 1.5-8.1 N [facility]anoWvvcaynZJSNNMHNID6552-66-66 09:47:00 Test Item Value Reference Range Interpretation Comments Lymphocytes # (test code = Lymphocytes 1.2 1.0-5.5 N #) [facility]anoGfzmobkIKBBVXMELA8483-61-09 09:47:00 Test Item Value Reference Range Interpretation Comments Monocytes # (test code 0.5 See_Comment N [Aut omated message] The = Monocytes #) system which generated this result tra nsmitted reference range : <=0.8. The reference r leo was not used to int erpret this result as normal/abnormal . [facility]anoVfdmjekRARFPECHWM5143-65-68 09:47:00 Test Item Value Reference Range Interpretation Comments Eosinophils # (test code 0.0 See_Comment N [A utomated message] The = Eosinophils #) system whic h generated this result tra nsmitted reference range : <=0.5. The reference r leo was not used to int erpret this result as normal/abnormal . [facility]anoEptssseMHTCSWQDVV3654-59-98 09:47:00 Test Item Value Reference Range Interpretation Comments Segs (test code = Segs) 76.9 45.0-75.0 H [facility]anoMznrhbbPMDOTHBTLC7087-09-44 09:47:00 Test Item Value Reference Range Interpretation Comments Lymphocytes (test code = Lymphocytes) 15.9 20.0-40.0 L [facility]anoIhrfxhcIFPCMORSVL1404-36-51 09:47:00 Test Item Value Reference Range Interpretation Comments Monocytes (test code = Monocytes) 6.3 2.0-12.0 N [facility]anoYiseyzjNLQOQAYSQV5970-68-59 09:47:00 Test Item Value Reference Range Interpretation Comments MCV (test code = MCV) 82.8 81.0-99.0 N [facility]anoDreoeslXHTJBYLAZJ7060-39-71 09:47:00 Test Item Value Reference Range Interpretation Comments Hct (test code = Hct) 39.7 36.0-48.0 N [facility]anoAtqzipeUAEQEPFYDF0199-54-03 09:47:00 Test Item Value Reference Range Interpretation Comments MCH (test code = MCH) 29.1 pg 27.0-31.0 N [facility]anoNpyqqhcPGZLYMMDSA8360-39-27 09:47:00 Test Item Value Reference Range Interpretation Comments Hgb (test code = Hgb) 14.0 12.0-16.0 N [facility]anoMfzmlxoFLRCQRMXUR0648-80-13 09:47:00 Test Item Value Reference Range Interpretation Comments MCHC (test code = MCHC) 35.2 32.0-36.0 N [facility]anoTveeybjNXYJLJYWDY8473-50-22 09:47:00 Test Item Value Reference Range Interpretation Comments RDW (test code = RDW) 13.9 11.5-14.5 N [facility]anoAclmtgpELVWDZDSIE3263-20-42 09:47:00 Test Item Value Reference Range Interpretation Comments Platelet (test code = Platelet) 160 133-450 N [facility]anoDnxyutlVQJGEOOLYH2838-13-86 09:47:00 Test Item Value Reference Range Interpretation Comments MPV (test code = MPV) 11.9 7.4-10.4 H [facility]anoGqsuhrtAYMCXEIYKM9946-62-96 09:47:00 Test Item Value Reference Range Interpretation Comments WBC (test code = WBC) 7.7 3.7-10.4 N [facility]anoQoosxuxAXSZATDQQV5713-08-01 09:47:00 Test Item Value Reference Range Interpretation Comments RBC (test code = RBC) 4.80 4.20-5.40 N [facility] CenterPyrgfcvUBQSCYSTO0306-92-34 09:47:00 Test Item Value Reference Range Interpretation Comments Phosphorus (test code = Phosphorus) 2.5 2.5-4.5 N [facility] CenterZtafhxxFICVLLMIV3355-73-28 09:47:00 Test Item Value Reference Range Interpretation Comments Glucose Lvl (test code = Glucose Lvl) 201 [facility] CenterTwjhiutLEJCCBVXG3592-00-66 09:47:00 Test Item Value Reference Range Interpretation Comments BUN (test code = BUN) 7 7-22 N [facility] CenterVvdzuipCSRVCVVCI0969-95-45 09:47:00 Test Item Value Reference Range Interpretation Comments CO2 (test code = CO2) 19 24-32 L [facility] CenterFjkcykzZOHQSXFXI3307-28-97 09:47:00 Test Item Value Reference Range Interpretation Comments Creatinine Lvl (test code = Creatinine 0.3 0.5-1.4 L Lvl) [facility] CenterAeqfublDYHFNSWXL4355-70-99 09:47:00 Test Item Value Reference Range Interpretation Comments Sodium Lvl (test code = Sodium Lvl) 137 135-145 N [facility] CenterMtbkgcxCIWBCZZJR1283-85-88 09:47:00 Test Item Value Reference Range Interpretation Comments Chloride Lvl (test code = Chloride Lvl) 103 95-109 N [facility] CenterLkiqskyRADLASWAN6633-60-01 09:47:00 Test Item Value Reference Range Interpretation Comments Potassium Lvl (test code = Potassium 3.6 3.5-5.1 N Lvl) [facility] CenterEddlrexZBPENOSNC2901-60-65 09:47:00 Test Item Value Reference Range Interpretation Comments Calcium Lvl (test code = Calcium Lvl) 7.9 8.5-10.5 L [facility] CenterEfrtgyvPSWHWSQBV7468-82-25 09:47:00 Test Item Value Reference Range Interpretation Comments AGAP (test code = AGAP) 18.6 10.0-20.0 N [facility] CenterBzmwmmrSLMDWXAGB7980-42-32 09:47:00 Test Item Value Reference Range Interpretation Comments Magnesium Lvl (test code = Magnesium 1.6 1.8-2.4 L Lvl) [facility]anoTbkiidlGDMZKCMDQX7529-41-10 09:47:00 Test Item Value Reference Range Interpretation Comments Basophils # (test code 0.0 See_Comment N [Aut omated message] The = Basophils #) system which generated this result tra nsmitted reference range : <=0.2. The reference r leo was not used to int erpret this result as normal/abnormal . [facility]anoOzxgryyVYGWTNQQEA5559-34-28 09:47:00 Test Item Value Reference Range Interpretation Comments Eosinophils (test code = 0.4 See_Comment N [A utomated message] The Eosinophils) system which ge nerated this result tra nsmitted reference range : <=4.0. The reference r leo was not used to int erpret this result as normal/abnormal . [facility]anoDdztnhvDEGCJYKUJL2809-02-97 09:47:00 Test Item Value Reference Range Interpretation Comments Basophils (test code = 0.5 See_Comment N [Aut omated message] The Basophils) system which ge nerated this result tra nsmitted reference range : <=1.0. The reference r leo was not used to int erpret this result as normal/abnormal . [facility]anoSupkbonEHJRHQCCLB5254-50-87 09:47:00 Test Item Value Reference Range Interpretation Comments Segs-Bands # (test code = Segs-Bands #) 5.9 1.5-8.1 N [facility]anoIqesqwnYQQCLEYTHF4140-91-70 09:47:00 Test Item Value Reference Range Interpretation Comments Lymphocytes # (test code = Lymphocytes 1.2 1.0-5.5 N #) [facility]anoKfvfclqCNFFMSSUAP2284-07-93 09:47:00 Test Item Value Reference Range Interpretation Comments Monocytes # (test code 0.5 See_Comment N [Aut omated message] The = Monocytes #) system which generated this result tra nsmitted reference range : <=0.8. The reference r leo was not used to int erpret this result as normal/abnormal . [facility]anoGhizuciTOJJJGNUDZ7248-11-63 09:47:00 Test Item Value Reference Range Interpretation Comments Eosinophils # (test code 0.0 See_Comment N [A utomated message] The = Eosinophils #) system whic h generated this result tra nsmitted reference range : <=0.5. The reference r leo was not used to int erpret this result as normal/abnormal . [facility]anoRmmlwtfGUTHRUJJCR0605-55-98 09:47:00 Test Item Value Reference Range Interpretation Comments Segs (test code = Segs) 76.9 45.0-75.0 H [facility]anoEuhsextCIUYSWQINM3243-51-86 09:47:00 Test Item Value Reference Range Interpretation Comments Lymphocytes (test code = Lymphocytes) 15.9 20.0-40.0 L [facility]anoHeappkxTCSAJZFZMY7044-57-30 09:47:00 Test Item Value Reference Range Interpretation Comments Monocytes (test code = Monocytes) 6.3 2.0-12.0 N [facility]anoQoyfjdvIGQVPYOJIT1233-79-88 09:47:00 Test Item Value Reference Range Interpretation Comments MCV (test code = MCV) 82.8 81.0-99.0 N [facility]anoVziywpqLCDOPXHCEV5496-35-05 09:47:00 Test Item Value Reference Range Interpretation Comments Hct (test code = Hct) 39.7 36.0-48.0 N [facility]anoCmvvfuiSUMTFPEUVS8852-16-70 09:47:00 Test Item Value Reference Range Interpretation Comments MCH (test code = MCH) 29.1 pg 27.0-31.0 N [facility]anoWbfdgmkICNFGZOYSW9331-19-36 09:47:00 Test Item Value Reference Range Interpretation Comments Hgb (test code = Hgb) 14.0 12.0-16.0 N [facility]anoApeiyqyZTCFATWOJE1447-19-04 09:47:00 Test Item Value Reference Range Interpretation Comments MCHC (test code = MCHC) 35.2 32.0-36.0 [facility] [place]mchxvjCUWOZQBYMH9552-27-65 09:47:00 Test Item Value Reference Range Interpretation Comments RDW (test code = RDW) 13.9 11.5-14.5 N [facility] [place]EzeoqesQEAUSDBLAH0022-12-37 09:47:00 Test Item Value Reference Range Interpretation Comments Platelet (test code = Platelet) 160 133-450 N [facility] [place]AzvcqtbQJPDLMENRW3607-19-35 09:47:00 Test Item Value Reference Range Interpretation Comments MPV (test code = MPV) 11.9 7.4-10.4 H [facility] [place]QxkxoaeRSQXHFQPNU3551-34-79 09:47:00 Test Item Value Reference Range Interpretation Comments WBC (test code = WBC) 7.7 3.7-10.4 N [facility] [place]MjpcfdrOXRQLTROKL6405-49-33 09:47:00 Test Item Value Reference Range Interpretation Comments RBC (test code = RBC) 4.80 4.20-5.40 N [facility] CenterApkuzgdEUDFBYEPB3217-81-18 09:47:00 Test Item Value Reference Range Interpretation Comments Phosphorus (test code = Phosphorus) 2.5 2.5-4.5 N [facility] CenterFicmiotHIDKGLHRM5368-52-60 09:47:00 Test Item Value Reference Range Interpretation Comments Glucose Lvl (test code = Glucose Lvl) 201 [facility] CenterAdczhnaPSASTYWOW1928-75-86 09:47:00 Test Item Value Reference Range Interpretation Comments BUN (test code = BUN) 7 7-22 N [facility] CenterOkymxysGDNXKBZMQ3932-75-71 09:47:00 Test Item Value Reference Range Interpretation Comments CO2 (test code = CO2) 19 24-32 L [facility] CenterWnjasfsXUOVAOYLS4240-60-26 09:47:00 Test Item Value Reference Range Interpretation Comments Creatinine Lvl (test code = Creatinine 0.3 0.5-1.4 L Lvl) [facility] CenterLejgktxDCVXFJKBP5844-70-75 09:47:00 Test Item Value Reference Range Interpretation Comments Sodium Lvl (test code = Sodium Lvl) 137 135-145 N [facility] CenterRqzcwuiWDIJHGTZI7167-57-75 09:47:00 Test Item Value Reference Range Interpretation Comments Chloride Lvl (test code = Chloride Lvl) 103 95-109 N [facility] CenterYinmsypXYRODBKFH2442-46-31 09:47:00 Test Item Value Reference Range Interpretation Comments Potassium Lvl (test code = Potassium 3.6 3.5-5.1 N Lvl) [facility] CenterMicfsbdLDPCWWIRP7154-00-10 09:47:00 Test Item Value Reference Range Interpretation Comments Calcium Lvl (test code = Calcium Lvl) 7.9 8.5-10.5 L [facility] CenterJctcukdOATSQAGNE3426-75-93 09:47:00 Test Item Value Reference Range Interpretation Comments AGAP (test code = AGAP) 18.6 10.0-20.0 N [facility] CenterDcvonvqUCDKHWINX5810-16-81 09:47:00 Test Item Value Reference Range Interpretation Comments Magnesium Lvl (test code = Magnesium 1.6 1.8-2.4 L Lvl) [facility] [place]EepdmmnXZFIPRPRGW6528-43-70 09:47:00 Test Item Value Reference Range Interpretation Comments Basophils # (test code 0.0 See_Comment N [Aut omated message] The = Basophils #) system which generated this result tra nsmitted reference range : <=0.2. The reference r leo was not used to int erpret this result as normal/abnormal . [facility] [place]anoSsnwdyfAZDQJMDQGC0177-43-81 09:47:00 Test Item Value Reference Range Interpretation Comments Eosinophils (test code = 0.4 See_Comment N [A utomated message] The Eosinophils) system which ge nerated this result tra nsmitted reference range : <=4.0. The reference r leo was not used to int erpret this result as normal/abnormal . [facility] [place]anoXzkycimXGEJOWZAYT4439-79-41 09:47:00 Test Item Value Reference Range Interpretation Comments Basophils (test code = 0.5 See_Comment N [Aut omated message] The Basophils) system which ge nerated this result tra nsmitted reference range : <=1.0. The reference r leo was not used to int erpret this result as normal/abnormal . [facility] [place]anoVazeyirRRNIYTMUOT2988-89-43 09:47:00 Test Item Value Reference Range Interpretation Comments Segs-Bands # (test code = Segs-Bands #) 5.9 1.5-8.1 N [facility] [place]anoMenhjujJIWXMQFYXX9502-63-71 09:47:00 Test Item Value Reference Range Interpretation Comments Lymphocytes # (test code = Lymphocytes 1.2 1.0-5.5 N #) [facility] [place]anoYdglzphPGFRRXEZYU1908-72-42 09:47:00 Test Item Value Reference Range Interpretation Comments Monocytes # (test code 0.5 See_Comment N [Aut omated message] The = Monocytes #) system which generated this result tra nsmitted reference range : <=0.8. The reference r leo was not used to int erpret this result as normal/abnormal . [facility] [place]anoIrucsnhFWAVKWDABY1307-93-40 09:47:00 Test Item Value Reference Range Interpretation Comments Eosinophils # (test code 0.0 See_Comment N [A utomated message] The = Eosinophils #) system whic h generated this result tra nsmitted reference range : <=0.5. The reference r leo was not used to int erpret this result as normal/abnormal . [facility] [place]IxbfguuRBKMRSUPTV1047-16-79 09:47:00 Test Item Value Reference Range Interpretation Comments Segs (test code = Segs) 76.9 45.0-75.0 H [facility] [place]anoGburgjiWMJYWVIHYT6160-15-25 09:47:00 Test Item Value Reference Range Interpretation Comments Lymphocytes (test code = Lymphocytes) 15.9 20.0-40.0 L [facility] [place]EigzwfbBYEILGSRIF4827-51-95 09:47:00 Test Item Value Reference Range Interpretation Comments Monocytes (test code = Monocytes) 6.3 2.0-12.0 N [facility] [place]anoKvrwfxsCIJMXOHOXF9602-51-49 09:47:00 Test Item Value Reference Range Interpretation Comments MCV (test code = MCV) 82.8 81.0-99.0 N [facility] [place]LfnlhcfUDTBCXOGJY4624-57-31 09:47:00 Test Item Value Reference Range Interpretation Comments Hct (test code = Hct) 39.7 36.0-48.0 N [facility] [place]anoClozdabAFEKXUQXEX8100-24-17 09:47:00 Test Item Value Reference Range Interpretation Comments MCH (test code = MCH) 29.1 pg 27.0-31.0 N [facility] [place]ElptarvBSTYYWYIZM4816-95-13 09:47:00 Test Item Value Reference Range Interpretation Comments Hgb (test code = Hgb) 14.0 12.0-16.0 N [facility] [place]anoJiyycohRRRDRGXBQE4814-47-15 09:47:00 Test Item Value Reference Range Interpretation Comments MCHC (test code = MCHC) 35.2 32.0-36.0 N [facility] [place]anoQymybykBTTKCOEYOK5654-15-58 09:47:00 Test Item Value Reference Range Interpretation Comments RDW (test code = RDW) 13.9 11.5-14.5 N [facility] [place]anoAbggasoTRASKDYQGF6860-48-73 09:47:00 Test Item Value Reference Range Interpretation Comments Platelet (test code = Platelet) 160 133-450 N [facility] [place]AeuykqsRKBBCVIKSP9670-79-55 09:47:00 Test Item Value Reference Range Interpretation Comments MPV (test code = MPV) 11.9 7.4-10.4 H [facility] [place]anoNkgptdyGHWKOCGDWU8546-38-40 09:47:00 Test Item Value Reference Range Interpretation Comments WBC (test code = WBC) 7.7 3.7-10.4 N [facility] [place]IdjoeckNMIHUKUZDI8981-87-75 09:47:00 Test Item Value Reference Range Interpretation Comments RBC (test code = RBC) 4.80 4.20-5.40 N [facility] CenterGozbjghCNODRDHLS7448-80-27 10:28:00 Test Item Value Reference Range Interpretation Comments Phosphorus (test code = Phosphorus) 2.6 2.5-4.5 N [facility] CenterUkuhjuwZTOGJFKII6802-84-14 10:28:00 Test Item Value Reference Range Interpretation Comments Magnesium Lvl (test code = Magnesium 1.8 1.8-2.4 N Lvl) [facility] CenterZvvsytbNHKDGYOGF2197-70-52 10:28:00 Test Item Value Reference Range Interpretation Comments Potassium Lvl (test code = Potassium 3.7 3.5-5.1 N Lvl) [facility] CenterXnpzhosPSBSLGNPI0145-13-26 10:28:00 Test Item Value Reference Range Interpretation Comments Sodium Lvl (test code = Sodium Lvl) 137 135-145 N [facility] CenterHtedxglSQURZLHUE2697-49-11 10:28:00 Test Item Value Reference Range Interpretation Comments Creatinine Lvl (test code = Creatinine 0.6 0.5-1.4 N Lvl) [facility] CenterTvamtqlKBHVRWMWJ2414-07-88 10:28:00 Test Item Value Reference Range Interpretation Comments BUN (test code = BUN) 16 7-22 N [facility] CenterVoxznczSAFBIHATG8041-28-86 10:28:00 Test Item Value Reference Range Interpretation Comments Glucose Lvl (test code = Glucose Lvl) 200 [facility] CenterChvolohJUQYEOWRL6369-11-91 10:28:00 Test Item Value Reference Range Interpretation Comments Calcium Lvl (test code = Calcium Lvl) 8.3 8.5-10.5 L [facility] CenterOmfcitwVQJHICXNG1301-33-22 10:28:00 Test Item Value Reference Range Interpretation Comments AGAP (test code = AGAP) 19.7 10.0-20.0 N [facility] CenterZleucbyJRAGZNHXV3686-10-28 10:28:00 Test Item Value Reference Range Interpretation Comments Chloride Lvl (test code = Chloride Lvl) 99 95-109 N [facility] CenterIgcjghyBSSMAFLIV9319-81-41 10:28:00 Test Item Value Reference Range Interpretation Comments CO2 (test code = CO2) 22 24-32 L [facility] [place]IespoqeFVYLRGPRCY1995-42-40 10:28:00 Test Item Value Reference Range Interpretation Comments Platelet (test code = Platelet) 172 133-450 N [facility] [place]GszoraoTMYQCCDEOW3439-02-21 10:28:00 Test Item Value Reference Range Interpretation Comments MPV (test code = MPV) 12.0 7.4-10.4 H [facility] [place]IbhdwpeXLHXZMETTH7478-93-67 10:28:00 Test Item Value Reference Range Interpretation Comments WBC (test code = WBC) 7.3 3.7-10.4 N [facility] [place]anoLlrvvqiGZOVZGGPKU0513-45-18 10:28:00 Test Item Value Reference Range Interpretation Comments RDW (test code = RDW) 14.6 11.5-14.5 H [facility] [place]anoHgnxwnbYNVLRGQYYL0747-91-52 10:28:00 Test Item Value Reference Range Interpretation Comments MCHC (test code = MCHC) 35.0 32.0-36.0 N [facility] [place]CmxduspDILQHTRXJY1314-66-51 10:28:00 Test Item Value Reference Range Interpretation Comments RBC (test code = RBC) 4.54 4.20-5.40 N [facility] [place]ArrcrinYKOEMVOQPU4425-63-71 10:28:00 Test Item Value Reference Range Interpretation Comments Hct (test code = Hct) 37.6 36.0-48.0 N [facility] [place]anoRuzdobiGQRPRCHNGM8262-26-85 10:28:00 Test Item Value Reference Range Interpretation Comments MCV (test code = MCV) 82.9 81.0-99.0 N [facility] [place]anoSuckhlySFLVQHMMQM2478-13-64 10:28:00 Test Item Value Reference Range Interpretation Comments MCH (test code = MCH) 29.0 pg 27.0-31.0 N [facility] [place]JnlrfxwGPTSUHHTYK2046-61-63 10:28:00 Test Item Value Reference Range Interpretation Comments Hgb (test code = Hgb) 13.2 12.0-16.0 N [facility] [place]anoHlkindeDXMQFFOKXO0643-49-69 10:28:00 Test Item Value Reference Range Interpretation Comments Elliptocyte (test code = Slight A Elliptocyte) *ABN*(08/21/2011 04:28:00) [facility] [place]anoQqvjcruVTWSFXQVKN7938-76-47 10:28:00 Test Item Value Reference Range Interpretation Comments Polychrom (test code = Slight (08/21/2011 N Polychrom) 04:28:00) [facility] [place]anoKjkigeqVHEDJFAUAY4207-20-03 10:28:00 Test Item Value Reference Range Interpretation Comments Basophils # (test code 0.0 See_Comment N [Aut omated message] The = Basophils #) system which generated this result tra nsmitted reference range : <=0.2. The reference r leo was not used to int erpret this result as normal/abnormal . [facility] [place]anoYkmxvmrEICWIQLXRG8542-45-64 10:28:00 Test Item Value Reference Range Interpretation Comments Hypochrom (test code = Slight (08/21/2011 N Hypochrom) 04:28:00) [facility] [place]anoTepoycoEMCEBEKLNK4970-73-57 10:28:00 Test Item Value Reference Range Interpretation Comments Monocytes # (test code 0.6 See_Comment N [Aut omated message] The = Monocytes #) system which generated this result tra nsmitted reference range : <=0.8. The reference r leo was not used to int erpret this result as normal/abnormal . [facility] [place]anoOpftfczDZEUWRSGPZ8295-15-97 10:28:00 Test Item Value Reference Range Interpretation Comments Eosinophils # (test code 0.0 See_Comment N [A utomated message] The = Eosinophils #) system whic h generated this result tra nsmitted reference range : <=0.5. The reference r leo was not used to int erpret this result as normal/abnormal . [facility] [place]anoLcwfbvhKEDKWEUHLC6617-75-44 10:28:00 Test Item Value Reference Range Interpretation Comments Segs-Bands # (test code = Segs-Bands #) 5.3 1.5-8.1 N [facility] [place]anoCbjpvirFGVAEGTLQQ6241-63-10 10:28:00 Test Item Value Reference Range Interpretation Comments Lymphocytes # (test code = Lymphocytes 1.3 1.0-5.5 N #) [facility] [place]anoEcxknphGZTVKINRZV7153-52-21 10:28:00 Test Item Value Reference Range Interpretation Comments Basophils (test code = 0.5 See_Comment N [Aut omated message] The Basophils) system which ge nerated this result tra nsmitted reference range : <=1.0. The reference r leo was not used to int erpret this result as normal/abnormal . [facility] [place]anoYunznmqLMQGXHTQEF1325-25-44 10:28:00 Test Item Value Reference Range Interpretation Comments Monocytes (test code = Monocytes) 8.5 2.0-12.0 N [facility] [place]anoUachwjrXLWIRKUWMP3817-82-97 10:28:00 Test Item Value Reference Range Interpretation Comments Eosinophils (test code = 0.3 See_Comment N [A utomated message] The Eosinophils) system which ge nerated this result tra nsmitted reference range : <=4.0. The reference r leo was not used to int erpret this result as normal/abnormal . [facility] [place]anoEeloqvtRDNHVZFISM7421-52-94 10:28:00 Test Item Value Reference Range Interpretation Comments Lymphocytes (test code = Lymphocytes) 17.3 20.0-40.0 L [facility] [place]anoWpowetrIJLBHEZPBO5629-75-09 10:28:00 Test Item Value Reference Range Interpretation Comments Segs (test code = Segs) 73.4 45.0-75.0 N [facility] CenterGdoqdaoGWFBPYUIN2696-48-56 10:28:00 Test Item Value Reference Range Interpretation Comments Phosphorus (test code = Phosphorus) 2.6 2.5-4.5 N [facility] CenterYenneapDRYBLJVNC6685-09-67 10:28:00 Test Item Value Reference Range Interpretation Comments Magnesium Lvl (test code = Magnesium 1.8 1.8-2.4 N Lvl) [facility] CenterMjcwufyINUWXXULX7234-29-07 10:28:00 Test Item Value Reference Range Interpretation Comments Potassium Lvl (test code = Potassium 3.7 3.5-5.1 N Lvl) [facility] CenterWlokuzmUCDYOKISR5247-44-65 10:28:00 Test Item Value Reference Range Interpretation Comments Sodium Lvl (test code = Sodium Lvl) 137 135-145 N [facility] CenterUxnqldpWFMTFRXLI1010-50-72 10:28:00 Test Item Value Reference Range Interpretation Comments Creatinine Lvl (test code = Creatinine 0.6 0.5-1.4 N Lvl) [facility] CenterGgwumvmGEMPMLVFF4963-05-36 10:28:00 Test Item Value Reference Range Interpretation Comments BUN (test code = BUN) 16 7-22 N [facility] CenterIahvbznZUCNGXUDZ7461-87-37 10:28:00 Test Item Value Reference Range Interpretation Comments Glucose Lvl (test code = Glucose Lvl) 200 [facility] CenterTdwbipcYWIDOKGPG5878-92-77 10:28:00 Test Item Value Reference Range Interpretation Comments Calcium Lvl (test code = Calcium Lvl) 8.3 8.5-10.5 L [facility] CenterTdetxgbCYELAKAKQ1470-22-11 10:28:00 Test Item Value Reference Range Interpretation Comments AGAP (test code = AGAP) 19.7 10.0-20.0 N [facility] CenterHcsjmhqBAYFMBIXL7305-47-64 10:28:00 Test Item Value Reference Range Interpretation Comments Chloride Lvl (test code = Chloride Lvl) 99 95-109 N [facility] CenterTtqfpxhBFXBAFCJR6086-80-75 10:28:00 Test Item Value Reference Range Interpretation Comments CO2 (test code = CO2) 22 24-32 L [facility]WfaqebrCNMMIVAVRI1862-59-12 10:28:00 Test Item Value Reference Range Interpretation Comments Platelet (test code = Platelet) 172 133-450 N [facility] [place]anoAqijdkuSEWVGHUEDD9601-69-22 10:28:00 Test Item Value Reference Range Interpretation Comments MPV (test code = MPV) 12.0 7.4-10.4 H [facility] [place]anoBvujzhyMCMFDYQRMV9547-78-37 10:28:00 Test Item Value Reference Range Interpretation Comments WBC (test code = WBC) 7.3 3.7-10.4 N [facility] [place]YwjkhtjXPJKLCWWET4443-80-21 10:28:00 Test Item Value Reference Range Interpretation Comments RDW (test code = RDW) 14.6 11.5-14.5 H [facility] [place]anoVbfyzkbTRENJUWMGE0116-02-33 10:28:00 Test Item Value Reference Range Interpretation Comments MCHC (test code = MCHC) 35.0 32.0-36.0 N [facility] [place]anoDisfbehBVJASHDUVN9252-46-16 10:28:00 Test Item Value Reference Range Interpretation Comments RBC (test code = RBC) 4.54 4.20-5.40 N [facility] [place]anoLqknqswFLLNOHJRZV8835-19-48 10:28:00 Test Item Value Reference Range Interpretation Comments Hct (test code = Hct) 37.6 36.0-48.0 N [facility] [place]anoDdlrbveRTKEBHTRKH3367-01-07 10:28:00 Test Item Value Reference Range Interpretation Comments MCV (test code = MCV) 82.9 81.0-99.0 N [facility] [place]anoMeztavwPYUKTWDOVY5967-86-88 10:28:00 Test Item Value Reference Range Interpretation Comments MCH (test code = MCH) 29.0 pg 27.0-31.0 N [facility] [place]anoYilzyvnHIVNBNFBGG8569-77-53 10:28:00 Test Item Value Reference Range Interpretation Comments Hgb (test code = Hgb) 13.2 12.0-16.0 N [facility] [place]anoTvzozicWGWYMBMSUD8610-91-28 10:28:00 Test Item Value Reference Range Interpretation Comments Elliptocyte (test code = Slight A Elliptocyte) *ABN*(08/21/2011 04:28:00) [facility] [place]anoJemiifgWAKZJVGJNT0121-46-15 10:28:00 Test Item Value Reference Range Interpretation Comments Polychrom (test code = Slight (08/21/2011 N Polychrom) 04:28:00) [facility] [place]anoEjejzecYGCYZGBFAY1788-45-43 10:28:00 Test Item Value Reference Range Interpretation Comments Basophils # (test code 0.0 See_Comment N [Aut omated message] The = Basophils #) system which generated this result tra nsmitted reference range : <=0.2. The reference r leo was not used to int erpret this result as normal/abnormal . [facility] [place]anoPzrrqkxKLBYQKDWUV4892-21-92 10:28:00 Test Item Value Reference Range Interpretation Comments Hypochrom (test code = Slight (08/21/2011 N Hypochrom) 04:28:00) [facility] [place]anoYvvexbbPILYKZXHXR1792-85-42 10:28:00 Test Item Value Reference Range Interpretation Comments Monocytes # (test code 0.6 See_Comment N [Aut omated message] The = Monocytes #) system which generated this result tra nsmitted reference range : <=0.8. The reference r leo was not used to int erpret this result as normal/abnormal . [facility] [place]anoAmyaiicPXFLXKNJAU1907-73-14 10:28:00 Test Item Value Reference Range Interpretation Comments Eosinophils # (test code 0.0 See_Comment N [A utomated message] The = Eosinophils #) system whic h generated this result tra nsmitted reference range : <=0.5. The reference r leo was not used to int erpret this result as normal/abnormal . [facility] [place]anoWhvdasmWMVJKWVAPX3879-97-02 10:28:00 Test Item Value Reference Range Interpretation Comments Segs-Bands # (test code = Segs-Bands #) 5.3 1.5-8.1 N [facility] [place]anoGoyelghZQHQPPZPZW0369-05-71 10:28:00 Test Item Value Reference Range Interpretation Comments Lymphocytes # (test code = Lymphocytes 1.3 1.0-5.5 N #) [facility] [place]anoXsxxnijAFCTGGUHNX2453-89-09 10:28:00 Test Item Value Reference Range Interpretation Comments Basophils (test code = 0.5 See_Comment N [Aut omated message] The Basophils) system which ge nerated this result tra nsmitted reference range : <=1.0. The reference r leo was not used to int erpret this result as normal/abnormal . [facility] [place]anoZvlkfpgJEDIRGAVFE4193-52-79 10:28:00 Test Item Value Reference Range Interpretation Comments Monocytes (test code = Monocytes) 8.5 2.0-12.0 N [facility] [place]anoYkrvnyxQCFFXOWMOJ7220-23-59 10:28:00 Test Item Value Reference Range Interpretation Comments Eosinophils (test code = 0.3 See_Comment N [A utomated message] The Eosinophils) system which ge nerated this result tra nsmitted reference range : <=4.0. The reference r leo was not used to int erpret this result as normal/abnormal . [facility] [place]anoCtiwtbjLGRDHSDTDO3216-40-45 10:28:00 Test Item Value Reference Range Interpretation Comments Lymphocytes (test code = Lymphocytes) 17.3 20.0-40.0 L [facility] [place]anoCjbtsreGOLRPMUPAI3451-46-59 10:28:00 Test Item Value Reference Range Interpretation Comments Segs (test code = Segs) 73.4 45.0-75.0 N [facility] CenterGajfuqzSVMAOUHLR1292-91-67 10:28:00 Test Item Value Reference Range Interpretation Comments Phosphorus (test code = Phosphorus) 2.6 2.5-4.5 N [facility] CenterLldxahgRLKDYMPYA2654-27-11 10:28:00 Test Item Value Reference Range Interpretation Comments Magnesium Lvl (test code = Magnesium 1.8 1.8-2.4 N Lvl) [facility] CenterWucsjdiPYKPSWRHC9304-56-19 10:28:00 Test Item Value Reference Range Interpretation Comments Potassium Lvl (test code = Potassium 3.7 3.5-5.1 N Lvl) [facility] CenterOkuwzcyEVJYSXWXX9657-65-19 10:28:00 Test Item Value Reference Range Interpretation Comments Sodium Lvl (test code = Sodium Lvl) 137 135-145 N [facility] CenterTjdtnofJBZFSHFZU9535-41-42 10:28:00 Test Item Value Reference Range Interpretation Comments Creatinine Lvl (test code = Creatinine 0.6 0.5-1.4 N Lvl) [facility] CenterIexzyqgSPJJDVHSX2428-64-90 10:28:00 Test Item Value Reference Range Interpretation Comments BUN (test code = BUN) 16 7-22 N [facility] CenterBjjrndnBJQHRKYAO8959-97-45 10:28:00 Test Item Value Reference Range Interpretation Comments Glucose Lvl (test code = Glucose Lvl) 200 [facility] CenterQldgfodRPFWXCNUF8898-61-54 10:28:00 Test Item Value Reference Range Interpretation Comments Calcium Lvl (test code = Calcium Lvl) 8.3 8.5-10.5 L [facility] CenterQjlukblGJBGDVNGH8451-04-22 10:28:00 Test Item Value Reference Range Interpretation Comments AGAP (test code = AGAP) 19.7 10.0-20.0 N [facility] CenterLlecxhwRTEAVVJKQ8277-73-41 10:28:00 Test Item Value Reference Range Interpretation Comments Chloride Lvl (test code = Chloride Lvl) 99 95-109 N [facility] CenterAakfdmoBNTHRSNGF3140-13-36 10:28:00 Test Item Value Reference Range Interpretation Comments CO2 (test code = CO2) 22 24-32 L [facility] [place]anoYlgasveGYADDUDOKS0548-57-32 10:28:00 Test Item Value Reference Range Interpretation Comments Platelet (test code = Platelet) 172 133-450 N [facility] [place]anoXjcgamzNQEGULCZDF8545-91-13 10:28:00 Test Item Value Reference Range Interpretation Comments MPV (test code = MPV) 12.0 7.4-10.4 H [facility] [place]anoGcawrxpNUEETTCILI4115-90-10 10:28:00 Test Item Value Reference Range Interpretation Comments WBC (test code = WBC) 7.3 3.7-10.4 N [facility] [place]anoDahsdfqWXMPSKOKLC4015-29-42 10:28:00 Test Item Value Reference Range Interpretation Comments RDW (test code = RDW) 14.6 11.5-14.5 H [facility] [place]anoEegnpsjTBBZEPAOPY5250-07-55 10:28:00 Test Item Value Reference Range Interpretation Comments MCHC (test code = MCHC) 35.0 32.0-36.0 N [facility]NjugyunNGFDQRCCHG2621-20-02 10:28:00 Test Item Value Reference Range Interpretation Comments RBC (test code = RBC) 4.54 4.20-5.40 N [facility]anoJczezytPWTPJHUNYH3271-90-90 10:28:00 Test Item Value Reference Range Interpretation Comments Hct (test code = Hct) 37.6 36.0-48.0 N [facility]anoCvozsqiVTIGRPAXGV5450-46-49 10:28:00 Test Item Value Reference Range Interpretation Comments MCV (test code = MCV) 82.9 81.0-99.0 N [facility]anoGtnwuaqTISGVAFRVK2984-91-33 10:28:00 Test Item Value Reference Range Interpretation Comments MCH (test code = MCH) 29.0 pg 27.0-31.0 N [facility]anoMxkhkziXULLHSCLXR8550-82-52 10:28:00 Test Item Value Reference Range Interpretation Comments Hgb (test code = Hgb) 13.2 12.0-16.0 N [facility]anoFkhibmgYABQMRBQJY3948-28-42 10:28:00 Test Item Value Reference Range Interpretation Comments Elliptocyte (test code = Slight A Elliptocyte) *ABN*(08/21/2011 04:28:00) [facility]anoWdnoqceDOJZIJCGRV5096-38-08 10:28:00 Test Item Value Reference Range Interpretation Comments Polychrom (test code = Slight (08/21/2011 N Polychrom) 04:28:00) [facility]anoUgivygdALHASVBHAK5865-90-82 10:28:00 Test Item Value Reference Range Interpretation Comments Basophils # (test code 0.0 See_Comment N [Aut omated message] The = Basophils #) system which generated this result tra nsmitted reference range : <=0.2. The reference r leo was not used to int erpret this result as normal/abnormal . [facility]anoSqrkfwhBZNWBUFIRQ8631-88-54 10:28:00 Test Item Value Reference Range Interpretation Comments Hypochrom (test code = Slight (08/21/2011 N Hypochrom) 04:28:00) [facility]anoZwfisiuZXKQDOKIRI4329-23-44 10:28:00 Test Item Value Reference Range Interpretation Comments Monocytes # (test code 0.6 See_Comment N [Aut omated message] The = Monocytes #) system which generated this result tra nsmitted reference range : <=0.8. The reference r leo was not used to int erpret this result as normal/abnormal . [facility]anoVoftnemWEANKRCHDZ4229-01-55 10:28:00 Test Item Value Reference Range Interpretation Comments Eosinophils # (test code 0.0 See_Comment N [A utomated message] The = Eosinophils #) system whic h generated this result tra nsmitted reference range : <=0.5. The reference r leo was not used to int erpret this result as normal/abnormal . [facility]anoOrnmtnkTYGYZDSFAH3672-98-75 10:28:00 Test Item Value Reference Range Interpretation Comments Segs-Bands # (test code = Segs-Bands #) 5.3 1.5-8.1 N [facility]anoAurygzrRECBUVPCFE3142-49-50 10:28:00 Test Item Value Reference Range Interpretation Comments Lymphocytes # (test code = Lymphocytes 1.3 1.0-5.5 N #) [facility]anoTpkqkzpMEBHLJRDIB7277-05-31 10:28:00 Test Item Value Reference Range Interpretation Comments Basophils (test code = 0.5 See_Comment N [Aut omated message] The Basophils) system which ge nerated this result tra nsmitted reference range : <=1.0. The reference r leo was not used to int erpret this result as normal/abnormal . [facility]anoAjllvrmCTZDIQKXFG2395-95-04 10:28:00 Test Item Value Reference Range Interpretation Comments Monocytes (test code = Monocytes) 8.5 2.0-12.0 N [facility]anoYeascvfXNKHBEEEXF5848-16-26 10:28:00 Test Item Value Reference Range Interpretation Comments Eosinophils (test code = 0.3 See_Comment N [A utomated message] The Eosinophils) system which ge nerated this result tra nsmitted reference range : <=4.0. The reference r leo was not used to int erpret this result as normal/abnormal . [facility]anoBghsrabYBSESUONRL0275-11-03 10:28:00 Test Item Value Reference Range Interpretation Comments Lymphocytes (test code = Lymphocytes) 17.3 20.0-40.0 L [facility]anoZxzayzaZMLKDGYNIG7551-98-33 10:28:00 Test Item Value Reference Range Interpretation Comments Segs (test code = Segs) 73.4 45.0-75.0 N [facility] CenterPfaqaelJUVKSIJQW0571-06-93 10:28:00 Test Item Value Reference Range Interpretation Comments Phosphorus (test code = Phosphorus) 2.6 2.5-4.5 N [facility] CenterJrlamojHYXLNKLKI4611-36-30 10:28:00 Test Item Value Reference Range Interpretation Comments Magnesium Lvl (test code = Magnesium 1.8 1.8-2.4 N Lvl) [facility] CenterMbmzuipFBUVKIVQA4338-46-15 10:28:00 Test Item Value Reference Range Interpretation Comments Potassium Lvl (test code = Potassium 3.7 3.5-5.1 N Lvl) [facility] CenterNrzrfkzNAWJLZHEQ1854-11-27 10:28:00 Test Item Value Reference Range Interpretation Comments Sodium Lvl (test code = Sodium Lvl) 137 135-145 N [facility] CenterNnpzpflCJREZVXBY8751-26-21 10:28:00 Test Item Value Reference Range Interpretation Comments Creatinine Lvl (test code = Creatinine 0.6 0.5-1.4 N Lvl) [facility] CenterDhiyrjxFYINWYDNF5970-98-56 10:28:00 Test Item Value Reference Range Interpretation Comments BUN (test code = BUN) 16 7-22 N [facility] CenterEbwhasgBWUWNYBZU4611-44-92 10:28:00 Test Item Value Reference Range Interpretation Comments Glucose Lvl (test code = Glucose Lvl) 200 [facility] CenterUrtilmzGVVQMLAPS0933-90-31 10:28:00 Test Item Value Reference Range Interpretation Comments Calcium Lvl (test code = Calcium Lvl) 8.3 8.5-10.5 L [facility] CenterBstpaoqWIVOHXQBA2897-26-84 10:28:00 Test Item Value Reference Range Interpretation Comments AGAP (test code = AGAP) 19.7 10.0-20.0 N [facility] CenterXpzyetxRHBBXTFDX9998-18-57 10:28:00 Test Item Value Reference Range Interpretation Comments Chloride Lvl (test code = Chloride Lvl) 99 95-109 N [facility] CenterZjjaioaSPRTZLRPC7097-51-23 10:28:00 Test Item Value Reference Range Interpretation Comments CO2 (test code = CO2) 22 24-32 L [facility]anoMwdlkwwLFTHNDYULN5115-61-21 10:28:00 Test Item Value Reference Range Interpretation Comments Platelet (test code = Platelet) 172 133-450 N [facility]anoAijomyzVTAGWTTPWM2799-39-73 10:28:00 Test Item Value Reference Range Interpretation Comments MPV (test code = MPV) 12.0 7.4-10.4 H [facility]anoUgxojzfGHGPIMYOUP3887-20-24 10:28:00 Test Item Value Reference Range Interpretation Comments WBC (test code = WBC) 7.3 3.7-10.4 N [facility]anoUefonnnIGIVMTOEXV6026-77-90 10:28:00 Test Item Value Reference Range Interpretation Comments RDW (test code = RDW) 14.6 11.5-14.5 H [facility]anoRildwonEHBZSABZII0831-49-01 10:28:00 Test Item Value Reference Range Interpretation Comments MCHC (test code = MCHC) 35.0 32.0-36.0 N [facility]anoWwblpomAKPRNDBPVX8347-49-35 10:28:00 Test Item Value Reference Range Interpretation Comments RBC (test code = RBC) 4.54 4.20-5.40 N [facility]anoIiyqewsTBHLLIQPRT0885-18-64 10:28:00 Test Item Value Reference Range Interpretation Comments Hct (test code = Hct) 37.6 36.0-48.0 N [facility]anoIngsmmzMJSMNMERBK7794-24-85 10:28:00 Test Item Value Reference Range Interpretation Comments MCV (test code = MCV) 82.9 81.0-99.0 N [facility]anoQaaunflDQXTGLJPRK7145-11-44 10:28:00 Test Item Value Reference Range Interpretation Comments MCH (test code = MCH) 29.0 pg 27.0-31.0 N [facility]anoAmwgmnjRUEYXMWIPR9541-33-91 10:28:00 Test Item Value Reference Range Interpretation Comments Hgb (test code = Hgb) 13.2 12.0-16.0 N [facility]anoKqorqejVIPADMTRYE4842-16-22 10:28:00 Test Item Value Reference Range Interpretation Comments Elliptocyte (test code = Slight A Elliptocyte) *ABN*(08/21/2011 04:28:00) [facility]anoKfjdoyqOIENDWYQXN2779-37-33 10:28:00 Test Item Value Reference Range Interpretation Comments Polychrom (test code = Slight (08/21/2011 N Polychrom) 04:28:00) [facility]anoLlssvowLTNBYPHKVK9336-43-90 10:28:00 Test Item Value Reference Range Interpretation Comments Basophils # (test code 0.0 See_Comment N [Aut omated message] The = Basophils #) system which generated this result tra nsmitted reference range : <=0.2. The reference r leo was not used to int erpret this result as normal/abnormal . [facility]anoFkqmvrcARBURICIFU4255-98-83 10:28:00 Test Item Value Reference Range Interpretation Comments Hypochrom (test code = Slight (08/21/2011 N Hypochrom) 04:28:00) [facility]anoNfiagndBJBJLGCZXS7936-44-81 10:28:00 Test Item Value Reference Range Interpretation Comments Monocytes # (test code 0.6 See_Comment N [Aut omated message] The = Monocytes #) system which generated this result tra nsmitted reference range : <=0.8. The reference r leo was not used to int erpret this result as normal/abnormal . [facility]anoQwiwesmZUEBLBEEYZ1936-24-55 10:28:00 Test Item Value Reference Range Interpretation Comments Eosinophils # (test code 0.0 See_Comment N [A utomated message] The = Eosinophils #) system whic h generated this result tra nsmitted reference range : <=0.5. The reference r leo was not used to int erpret this result as normal/abnormal . [facility]anoPzrasrgVHRNMJROQN4233-05-09 10:28:00 Test Item Value Reference Range Interpretation Comments Segs-Bands # (test code = Segs-Bands #) 5.3 1.5-8.1 N [facility]anoDntzsutCTEZNZMHUM7556-55-84 10:28:00 Test Item Value Reference Range Interpretation Comments Lymphocytes # (test code = Lymphocytes 1.3 1.0-5.5 N #) [facility]anoTprmtfoIYHOXZVGPU5910-19-49 10:28:00 Test Item Value Reference Range Interpretation Comments Basophils (test code = 0.5 See_Comment N [Aut omated message] The Basophils) system which ge nerated this result tra nsmitted reference range : <=1.0. The reference r leo was not used to int erpret this result as normal/abnormal . [facility]anoWapadrnCQBTDWZRRK4873-71-21 10:28:00 Test Item Value Reference Range Interpretation Comments Monocytes (test code = Monocytes) 8.5 2.0-12.0 N [facility]anoCzrfkfuFZFXJDSKOP2238-07-72 10:28:00 Test Item Value Reference Range Interpretation Comments Eosinophils (test code = 0.3 See_Comment N [A utomated message] The Eosinophils) system which ge nerated this result tra nsmitted reference range : <=4.0. The reference r leo was not used to int erpret this result as normal/abnormal . [facility]anoUyvbsrfYHNEWHCYHC7672-77-37 10:28:00 Test Item Value Reference Range Interpretation Comments Lymphocytes (test code = Lymphocytes) 17.3 20.0-40.0 L [facility]anoTqbbyzhXHZSVCGOPT8515-20-01 10:28:00 Test Item Value Reference Range Interpretation Comments Segs (test code = Segs) 73.4 45.0-75.0 N [facility] CenterWqjhgdkKWRCRPJQJ3379-22-54 10:28:00 Test Item Value Reference Range Interpretation Comments Phosphorus (test code = Phosphorus) 2.6 2.5-4.5 N [facility] CenterOpnsjxeYYCBQSDYO8443-70-81 10:28:00 Test Item Value Reference Range Interpretation Comments Magnesium Lvl (test code = Magnesium 1.8 1.8-2.4 N Lvl) [facility] CenterNmxnukhHPDSJRKJV6371-60-98 10:28:00 Test Item Value Reference Range Interpretation Comments Potassium Lvl (test code = Potassium 3.7 3.5-5.1 N Lvl) [facility] CenterDruuhmpXJGHGQCYV6092-85-59 10:28:00 Test Item Value Reference Range Interpretation Comments Sodium Lvl (test code = Sodium Lvl) 137 135-145 N [facility] CenterIebowtoYZUEYXFSB7362-60-53 10:28:00 Test Item Value Reference Range Interpretation Comments Creatinine Lvl (test code = Creatinine 0.6 0.5-1.4 N Lvl) [facility] CenterYfsrdurWXMQHSPKV7332-71-09 10:28:00 Test Item Value Reference Range Interpretation Comments BUN (test code = BUN) 16 7-22 N [facility] CenterUpyxpneJAXURUQVK6409-07-63 10:28:00 Test Item Value Reference Range Interpretation Comments Glucose Lvl (test code = Glucose Lvl) 200 [facility] CenterAzdlisjFYOSNROIF0342-27-71 10:28:00 Test Item Value Reference Range Interpretation Comments Calcium Lvl (test code = Calcium Lvl) 8.3 8.5-10.5 L [facility] CenterQtwqhcfVJEYMOHIF9764-35-59 10:28:00 Test Item Value Reference Range Interpretation Comments AGAP (test code = AGAP) 19.7 10.0-20.0 N [facility] CenterZqyfxrxPMUMJTFHG9935-39-59 10:28:00 Test Item Value Reference Range Interpretation Comments Chloride Lvl (test code = Chloride Lvl) 99 95-109 N [facility] CenterBzpgguvVFCMQEQKC9363-03-10 10:28:00 Test Item Value Reference Range Interpretation Comments CO2 (test code = CO2) 22 24-32 L [facility]anoQewixysDGSCUKPHAP3441-03-57 10:28:00 Test Item Value Reference Range Interpretation Comments Platelet (test code = Platelet) 172 133-450 N [facility]anoZukbzahOGFILOPFUB2548-37-98 10:28:00 Test Item Value Reference Range Interpretation Comments MPV (test code = MPV) 12.0 7.4-10.4 H [facility]anoJmiazrhEXLAXVGGEB5856-49-52 10:28:00 Test Item Value Reference Range Interpretation Comments WBC (test code = WBC) 7.3 3.7-10.4 N [facility]anoXnocyxvHMHXHZDZNX1635-25-06 10:28:00 Test Item Value Reference Range Interpretation Comments RDW (test code = RDW) 14.6 11.5-14.5 H [facility]anoAakixytGSVUVEKCWA7885-73-28 10:28:00 Test Item Value Reference Range Interpretation Comments MCHC (test code = MCHC) 35.0 32.0-36.0 N [facility]anoIqnakjpSTUWFRTDVR5741-23-99 10:28:00 Test Item Value Reference Range Interpretation Comments RBC (test code = RBC) 4.54 4.20-5.40 N [facility]anoZmzqmckIMGFLTPLDV3956-04-12 10:28:00 Test Item Value Reference Range Interpretation Comments Hct (test code = Hct) 37.6 36.0-48.0 N [facility]anoLlksqpwAAOAMZXXJN1625-45-27 10:28:00 Test Item Value Reference Range Interpretation Comments MCV (test code = MCV) 82.9 81.0-99.0 N [facility]anoKghnirdNFIXQDRNWS6272-23-58 10:28:00 Test Item Value Reference Range Interpretation Comments MCH (test code = MCH) 29.0 pg 27.0-31.0 N [facility]anoUcikzxiSVIABSOXHT8722-91-48 10:28:00 Test Item Value Reference Range Interpretation Comments Hgb (test code = Hgb) 13.2 12.0-16.0 N [facility]anoCetcvtvUZHUAGVFNY0849-48-18 10:28:00 Test Item Value Reference Range Interpretation Comments Elliptocyte (test code = Slight A Elliptocyte) *ABN*(08/21/2011 04:28:00) [facility]anoTzdizvjJSYYFINGXG6108-52-04 10:28:00 Test Item Value Reference Range Interpretation Comments Polychrom (test code = Slight (08/21/2011 N Polychrom) 04:28:00) [facility]anoHsoinrsDBUDIHAGZP8768-38-23 10:28:00 Test Item Value Reference Range Interpretation Comments Basophils # (test code 0.0 See_Comment N [Aut omated message] The = Basophils #) system which generated this result tra nsmitted reference range : <=0.2. The reference r leo was not used to int erpret this result as normal/abnormal . [facility]anoMazdrfeBWOXPXYOMC2650-48-04 10:28:00 Test Item Value Reference Range Interpretation Comments Hypochrom (test code = Slight (08/21/2011 N Hypochrom) 04:28:00) [facility]anoKqadktvUFEKCMGMGZ4402-18-98 10:28:00 Test Item Value Reference Range Interpretation Comments Monocytes # (test code 0.6 See_Comment N [Aut omated message] The = Monocytes #) system which generated this result tra nsmitted reference range : <=0.8. The reference r leo was not used to int erpret this result as normal/abnormal . [facility]anoHehrwjtAMVDMIBQYD9572-53-61 10:28:00 Test Item Value Reference Range Interpretation Comments Eosinophils # (test code 0.0 See_Comment N [A utomated message] The = Eosinophils #) system whic h generated this result tra nsmitted reference range : <=0.5. The reference r leo was not used to int erpret this result as normal/abnormal . [facility]anoPigvlpuWEUXEXAQIQ5428-51-39 10:28:00 Test Item Value Reference Range Interpretation Comments Segs-Bands # (test code = Segs-Bands #) 5.3 1.5-8.1 N [facility]anoAsslffhYSWYPCHLNL3355-14-47 10:28:00 Test Item Value Reference Range Interpretation Comments Lymphocytes # (test code = Lymphocytes 1.3 1.0-5.5 N #) [facility]anoQvakfghBNSJECDAHV6803-36-50 10:28:00 Test Item Value Reference Range Interpretation Comments Basophils (test code = 0.5 See_Comment N [Aut omated message] The Basophils) system which ge nerated this result tra nsmitted reference range : <=1.0. The reference r leo was not used to int erpret this result as normal/abnormal . [facility]anoRtjxvrrORRNPPFBSB9138-68-39 10:28:00 Test Item Value Reference Range Interpretation Comments Monocytes (test code = Monocytes) 8.5 2.0-12.0 N [facility]anoWeymjgiQSVTEDPDKS3613-21-29 10:28:00 Test Item Value Reference Range Interpretation Comments Eosinophils (test code = 0.3 See_Comment N [A utomated message] The Eosinophils) system which ge nerated this result tra nsmitted reference range : <=4.0. The reference r leo was not used to int erpret this result as normal/abnormal . [facility]anoQlmemmvGKJEHUHOAT1656-94-42 10:28:00 Test Item Value Reference Range Interpretation Comments Lymphocytes (test code = Lymphocytes) 17.3 20.0-40.0 L [facility]anoAvbpxklOPBYWVTTBE1981-48-08 10:28:00 Test Item Value Reference Range Interpretation Comments Segs (test code = Segs) 73.4 45.0-75.0 N [facility] GLUCOSE EGPQIHG5382-27-81 07:47:00 Test Item Value Reference Range Interpretation Comments Comment2 (test code = Comment2) Verify w/Lab [facility] GLUCOSE QTAHGLS1644-45-17 07:47:00 Test Item Value Reference Range Interpretation Comments Comment2 (test code = Comment2) Verify Lab [facility] GLUCOSE GRNJPUG7602-45-74 07:47:00 Test Item Value Reference Range Interpretation Comments Comment2 (test code = Comment2) Verify /Lab [facility] GLUCOSE DUEDAFU1203-59-19 07:47:00 Test Item Value Reference Range Interpretation Comments Comment2 (test code = Comment2) Verify w/Lab [facility] GLUCOSE EDLHMDL9841-71-70 07:47:00 Test Item Value Reference Range Interpretation Comments Comment2 (test code = Comment2) Verify /Lab [facility] CenterVepzootSGMIRKPUJ9370-40-54 21:58:00 Test Item Value Reference Range Interpretation Comments S Preg (test code = S Negative (08/19/2011 N Preg) 15:58:00) [facility] CenterDvvsoxxRCODIKFMN7647-57-70 21:58:00 Test Item Value Reference Range Interpretation Comments Lipase Lvl (test code = Lipase Lvl) 169 73-393 N [facility] CenterKsfgkqtAUNZKEZEN2958-67-87 21:58:00 Test Item Value Reference Range Interpretation Comments ALT (test code = ALT) 54 See_Comment N [Auto mated message] The system which ge nerated this result transmit rohit reference range : <=65. The reference range was not used to interpr et this result as reji l/abnormal. [facility] CenterHebwoqzYNFVUBXUP3623-19-20 21:58:00 Test Item Value Reference Range Interpretation Comments Alk Phos (test code = Alk Phos) 110 39-136 N [facility] CenterUqwebskOLDBCDADC4375-86-11 21:58:00 Test Item Value Reference Range Interpretation Comments Bili Direct (test code 0.1 See_Comment N [Aut omated message] The = Bili Direct) system which generated this result tra nsmitted reference range : <=0.3. The reference r leo was not used to int erpret this result as reji l/abnormal. [facility] CenterBcfrcvvGFSLSUCWB2767-96-86 21:58:00 Test Item Value Reference Range Interpretation Comments Bili Total (test code = Bili Total) 0.9 0.2-1.3 N [facility] CenterXimpalvGMPVMCMKF1670-79-28 21:58:00 Test Item Value Reference Range Interpretation Comments Albumin Lvl (test code = Albumin Lvl) 4.4 3.5-5.0 N [facility] CenterXrcmdpdPZWPBEXUE3985-15-58 21:58:00 Test Item Value Reference Range Interpretation Comments Total Protein (test code = Total 8.8 6.4-8.4 H Protein) [facility] CenterXrmunylNCETVJKAP0689-13-51 21:58:00 Test Item Value Reference Range Interpretation Comments Bili Indirect (test 0.8 See_Comment N [Automa rohit message] The code = Bili Indirect) system which generated this result tra nsmitted reference range : <=1.0. The reference r leo was not used to int erpret this result as normal/abnormal . [facility] CenterWgavrfkZLCVEUGKO4776-77-23 21:58:00 Test Item Value Reference Range Interpretation Comments AST (test code = AST) 36 See_Comment N [Auto mated message] The system which ge nerated this result transmit rohit reference range : <=37. The reference range was not used to interpr et this result as reji l/abnormal. [facility] CenterIinzclnSCYMJOODZ7750-27-42 21:58:00 Test Item Value Reference Range Interpretation Comments Globulin (test code = Globulin) 4.4 2.0-4.0 H [facility] CenterHeqisppCLTOUNZPL0231-32-92 21:58:00 Test Item Value Reference Range Interpretation Comments A/G Ratio (test code = A/G Ratio) 1.0 0.7-1.6 N [facility]JfoafjfXSRXARVGPO0816-63-50 21:58:00 Test Item Value Reference Range Interpretation Comments UA Bacteria (test code Occasional /HPF N = UA Bacteria) (08/19/2011 15:58:00) [facility] NorthwestNwytluvHNOXGDPCOX0006-71-40 21:58:00 Test Item Value Reference Range Interpretation Comments UA RBC (test 3-5 /HPF See_Comment A [Automated mes pastor] code = UA RBC) *ABN*(08/19/2011 The syste m which 15:58:00) generated this result transmitted ref erence range: <=2. The reference range was not used to int erpret this result as normal/abnormal . [facility]VxbxzwsXZLSPOIQRQ6706-48-96 21:58:00 Test Item Value Reference Range Interpretation Comments UA WBC (test code = 3 See_Comment [Automa rohit message] The UA WBC) system which ge nerated this result transmit rohit reference range : <=5. The reference range was not used to interpr et this result as reji l/abnormal. [facility]oundYkgllvaHQTSMPZFZR5223-81-69 21:58:00 Test Item Value Reference Range Interpretation Comments UA Mucus (test code = Few /LPF (08/19/2011 N UA Mucus) 15:58:00) [facility] [place]oundQiinwnhFCRHUWNNEX7621-54-78 21:58:00 Test Item Value Reference Range Interpretation Comments UA Amorph Destiny (test Occasional /HPF A code = UA Amorph *ABN*(08/19/2011 Destiny) 15:58:00) [facility]oundImbrrpoJORAOZHMSF1734-54-47 21:58:00 Test Item Value Reference Range Interpretation Comments UA Urobilinogen (test code = UA 0.2 0.1-1.0 N Urobilinogen) [facility]oundDaoyqneBQJUJMBBMP1814-93-88 21:58:00 Test Item Value Reference Range Interpretation Comments UA Sq Epi (test code = Rare /LPF (08/19/2011 N UA Sq Epi) 15:58:00) [facility]yLMOVNMRADK1114-[facility] 21:58:00 Test Item Value Reference Range Interpretation Comments Micro? (test code = Performed (08/19/2011 N Micro?) 15:58:00) [id number] 21:58:00 Test Item Value Reference Range Interpretation Comments UA Leuk Est (test Negative (08/19/2011 N code = UA Leuk Est) 15:58:00) [facility]oundKzmjunvSZVQKOQKRQ7141-41-38 21:58:00 Test Item Value Reference Range Interpretation Comments UA Nitrite (test code Negative (08/19/2011 N = UA Nitrite) 15:58:00) [facility]oundRfsrpuuPNEZRWOFHJ8005-42-30 21:58:00 Test Item Value Reference Range Interpretation Comments UA pH (test code = UA pH) 5.5 1 5.0-8.0 N [facility]HzgtrlhVLYCPXBIEH1514-20-96 21:58:00 Test Item Value Reference Range Interpretation Comments UA Blood (test code = Trace *ABN*(08/19/2011 A UA Blood) 15:58:00) [facility]oundDboglffSQBUMYWDOF2817-63-08 21:58:00 Test Item Value Reference Range Interpretation Comments UA Bili (test code = Negative (08/19/2011 N UA Bili) 15:58:00) [facility]oundNsecltoZEFAFQJVWK0289-07-51 21:58:00 Test Item Value Reference Range Interpretation Comments UA Ketones (test code = 80 mg/dL A UA Ketones) *ABN*(08/19/2011 15:58:00) [facility]PyueyhqHOFGFEZHPE8868-77-92 21:58:00 Test Item Value Reference Range Interpretation Comments UA Glucose (test code = >=1000 mg/dL A UA Glucose) *ABN*(08/19/2011 15:58:00) [facility]oundJjueremFFFGQLGNHO5824-64-27 21:58:00 Test Item Value Reference Range Interpretation Comments UA Protein (test code Negative (08/19/2011 N = UA Protein) 15:58:00) [facility]oundIwisbdvSLOGRMYAPA1586-28-26 21:58:00 Test Item Value Reference Range Interpretation Comments UA Turbidity (test code Slight Cloudy N = UA Turbidity) (08/19/2011 15:58:00) [facility]oundQskavfuUKEXKQKVKO9165-61-59 21:58:00 Test Item Value Reference Range Interpretation Comments UA Spec Grav (test code = UA Spec 1.025 1 Grav) [facility]oundBqnqwxqHHKTBZCTXM9429-38-48 21:58:00 Test Item Value Reference Range Interpretation Comments UA Color (test code = Yellow (08/19/2011 N UA Color) 15:58:00) [facility] CenterPfdjsixPKWRDVJKT4253-99-79 21:58:00 Test Item Value Reference Range Interpretation Comments S Preg (test code = S Negative (08/19/2011 N Preg) 15:58:00) [facility] CenterQopztjdPOUFVPXWA2373-91-99 21:58:00 Test Item Value Reference Range Interpretation Comments Lipase Lvl (test code = Lipase Lvl) 169 73-393 N [facility] CenterZpqdjthQEKVGPJXM0679-66-99 21:58:00 Test Item Value Reference Range Interpretation Comments ALT (test code = ALT) 54 See_Comment N [Auto mated message] The system which ge nerated this result transmit rohit reference range : <=65. The reference range was not used to interpr et this result as reji l/abnormal. [facility] CenterHntntnjTNKUDETTS4764-32-22 21:58:00 Test Item Value Reference Range Interpretation Comments Alk Phos (test code = Alk Phos) 110 39-136 N [facility] CenterQzrijhpDEKDXDNCI1290-51-93 21:58:00 Test Item Value Reference Range Interpretation Comments Bili Direct (test code 0.1 See_Comment N [Aut omated message] The = Bili Direct) system which generated this result tra nsmitted reference range : <=0.3. The reference r leo was not used to int erpret this result as reji l/abnormal. [facility] CenterYpgeemoSXZYRNIDZ6646-11-49 21:58:00 Test Item Value Reference Range Interpretation Comments Bili Total (test code = Bili Total) 0.9 0.2-1.3 N [facility] CenterPmkbrvqWFYBWUBQW0913-21-71 21:58:00 Test Item Value Reference Range Interpretation Comments Albumin Lvl (test code = Albumin Lvl) 4.4 3.5-5.0 N [facility] CenterXlhmbaeRVUTQDWYI4862-62-54 21:58:00 Test Item Value Reference Range Interpretation Comments Total Protein (test code = Total 8.8 6.4-8.4 H Protein) [facility] CenterTquwevcWVPKEHBVW3436-23-84 21:58:00 Test Item Value Reference Range Interpretation Comments Bili Indirect (test 0.8 See_Comment N [Automa rohit message] The code = Bili Indirect) system which generated this result tra nsmitted reference range : <=1.0. The reference r leo was not used to int erpret this result as normal/abnormal . [facility] CenterZidbtzaCFIHGMDHV2472-76-52 21:58:00 Test Item Value Reference Range Interpretation Comments AST (test code = AST) 36 See_Comment N [Auto mated message] The system which ge nerated this result transmit rohit reference range : <=37. The reference range was not used to interpr et this result as reji l/abnormal. [facility]Sxe[facility]utTKVHHBPKM2048-43-89 21:58:00 Test Item Value Reference Range Interpretation Comments Globulin (test code = Globulin) 4.4 2.0-4.0 H [facility] CenterWzoqataBOPRZYWEE6852-76-24 21:58:00 Test Item Value Reference Range Interpretation Comments A/G Ratio (test code = A/G Ratio) 1.0 0.7-1.6 N [facility]oundMfzqxznPGJGLBOCMA4022-25-60 21:58:00 Test Item Value Reference Range Interpretation Comments UA Bacteria (test code Occasional /HPF N = UA Bacteria) (08/19/2011 15:58:00) [facility]oundHqcytdmSRMSHRZTNP7233-87-55 21:58:00 Test Item Value Reference Range Interpretation Comments UA RBC (test 3-5 /HPF See_Comment A [Automated mes pastor] code = UA RBC) *ABN*(08/19/2011 The syste m which 15:58:00) generated this result transmitted ref erence range: <=2. The reference range was not used to int erpret this result as normal/abnormal . [facility]oundHsiigrsMYSCVQUNYJ0623-17-52 21:58:00 Test Item Value Reference Range Interpretation Comments UA WBC (test code = 3 See_Comment [Automa rohit message] The UA WBC) system which ge nerated this result transmit rohit reference range : <=5. The reference range was not used to interpr et this result as reji l/abnormal. [facility] HospitalAsyjlpaEAFQYCIMIR1944-46-37 21:58:00 Test Item Value Reference Range Interpretation Comments UA Mucus (test code = Few /LPF (08/19/2011 N UA Mucus) 15:58:00) [facility]oundSfocifaMEQMGATMQP8125-19-33 21:58:00 Test Item Value Reference Range Interpretation Comments UA Amorph Destiny (test Occasional /HPF A code = UA Amorph *ABN*(08/19/2011 Destiny) 15:58:00) [facility]oundPtinqrbCKCNKMVFBD9253-72-55 21:58:00 Test Item Value Reference Range Interpretation Comments UA Urobilinogen (test code = UA 0.2 0.1-1.0 N Urobilinogen) [facility]oundYcxpuvxQNHATMOYVJ0474-96-68 21:58:00 Test Item Value Reference Range Interpretation Comments UA Sq Epi (test code = Rare /LPF (08/19/2011 N UA Sq Epi) 15:58:00) [facility]oundKlreougZMTBORQJGO1311-97-36 21:58:00 Test Item Value Reference Range Interpretation Comments Micro? (test code = Performed (08/19/2011 N Micro?) 15:58:00) [facility]oundCpjyzlrCQNERLRQAZ0699-57-80 21:58:00 Test Item Value Reference Range Interpretation Comments UA Leuk Est (test Negative (08/19/2011 N code = UA Leuk Est) 15:58:00) [facility]oundNfhzywrQSNQBMRHKC0730-53-98 21:58:00 Test Item Value Reference Range Interpretation Comments UA Nitrite (test code Negative (08/19/2011 N = UA Nitrite) 15:58:00) [facility]oundMhpfeydXIIZZOCYUH6591-37-03 21:58:00 Test Item Value Reference Range Interpretation Comments UA pH (test code = UA pH) 5.5 1 5.0-8.0 N [facility]oundVvsfjjgNTOISUMUGO3892-41-42 21:58:00 Test Item Value Reference Range Interpretation Comments UA Blood (test code = Trace *ABN*(08/19/2011 A UA Blood) 15:58:00) [facility]oundHqataoiKZHOFZSNKF4619-66-34 21:58:00 Test Item Value Reference Range Interpretation Comments UA Bili (test code = Negative (08/19/2011 N UA Bili) 15:58:00) [facility]oundWaslnqhVJCLCKRUEU5577-56-88 21:58:00 Test Item Value Reference Range Interpretation Comments UA Ketones (test code = 80 mg/dL A UA Ketones) *ABN*(08/19/2011 15:58:00) [facility]oundPfpzzowROJCTHYPHL2259-35-81 21:58:00 Test Item Value Reference Range Interpretation Comments UA Glucose (test code = >=1000 mg/dL A UA Glucose) *ABN*(08/19/2011 15:58:00) [facility]oundOxcdxjtYZICYRWQLF5452-15-36 21:58:00 Test Item Value Reference Range Interpretation Comments UA Protein (test code Negative (08/19/2011 N = UA Protein) 15:58:00) [facility] NorthwestYhxvkqjWNQSOCLSZJ9384-43-99 21:58:00 Test Item Value Reference Range Interpretation Comments UA Turbidity (test code Slight Cloudy N = UA Turbidity) (08/19/2011 15:58:00) [facility] NorthwestMvrksfhUTUSTTTUBU9295-72-66 21:58:00 Test Item Value Reference Range Interpretation Comments UA Spec Grav (test code = UA Spec 1.025 1 Grav) [facility] NorthwestSdhsjolUETKYRMKQK8628-19-59 21:58:00 Test Item Value Reference Range Interpretation Comments UA Color (test code = Yellow (08/19/2011 N UA Color) 15:58:00) [facility] CenterPbzytuxRVIYZBXBR6496-03-46 21:58:00 Test Item Value Reference Range Interpretation Comments S Preg (test code = S Negative (08/19/2011 N Preg) 15:58:00) [facility] CenterIedjajnOCPPTFNGB8483-28-86 21:58:00 Test Item Value Reference Range Interpretation Comments Lipase Lvl (test code = Lipase Lvl) 169 73-393 N [facility] CenterHqnwelcXYQLKZAZC8301-46-95 21:58:00 Test Item Value Reference Range Interpretation Comments ALT (test code = ALT) 54 See_Comment N [Auto mated message] The system which ge nerated this result transmit rohit reference range : <=65. The reference range was not used to interpr et this result as reji l/abnormal. [facility] CenterJzodwzpJIDBNITAC1613-70-31 21:58:00 Test Item Value Reference Range Interpretation Comments Alk Phos (test code = Alk Phos) 110 39-136 N [facility] CenterBvmwuzoPDVZVDCYF7238-82-27 21:58:00 Test Item Value Reference Range Interpretation Comments Bili Direct (test code 0.1 See_Comment N [Aut omated message] The = Bili Direct) system which generated this result tra nsmitted reference range : <=0.3. The reference r leo was not used to int erpret this result as reji l/abnormal. [facility] CenterMxnreomNFYHPGPVW5656-03-60 21:58:00 Test Item Value Reference Range Interpretation Comments Bili Total (test code = Bili Total) 0.9 0.2-1.3 N [facility] CenterKvqcrvlKTKREQHWB9560-60-73 21:58:00 Test Item Value Reference Range Interpretation Comments Albumin Lvl (test code = Albumin Lvl) 4.4 3.5-5.0 N [facility] CenterWxrgoqiQLYXFNZIE9250-07-53 21:58:00 Test Item Value Reference Range Interpretation Comments Total Protein (test code = Total 8.8 6.4-8.4 H Protein) [facility] CenterUigpwniCVKAIYTOA6600-98-59 21:58:00 Test Item Value Reference Range Interpretation Comments Bili Indirect (test 0.8 See_Comment N [Automa rohit message] The code = Bili Indirect) system which generated this result tra nsmitted reference range : <=1.0. The reference r leo was not used to int erpret this result as normal/abnormal . [facility] CenterScpaiofIENPPKEVT4746-85-32 21:58:00 Test Item Value Reference Range Interpretation Comments AST (test code = AST) 36 See_Comment N [Auto mated message] The system which ge nerated this result transmit rohit reference range : <=37. The reference range was not used to interpr et this result as reji l/abnormal. [facility] CenterEsarmvtKBWAQVGPB5130-24-12 21:58:00 Test Item Value Reference Range Interpretation Comments Globulin (test code = Globulin) 4.4 2.0-4.0 H [facility] CenterSfgnfbwPNNMZKKCH4893-29-86 21:58:00 Test Item Value Reference Range Interpretation Comments A/G Ratio (test code = A/G Ratio) 1.0 0.7-1.6 N [facility] NorthwestFpmtnnmLFPNHDIEYE6607-97-47 21:58:00 Test Item Value Reference Range Interpretation Comments UA Bacteria (test code Occasional /HPF N = UA Bacteria) (08/19/2011 15:58:00) [facility] NorthwestBhirobqWUVAEXJQKF8463-33-30 21:58:00 Test Item Value Reference Range Interpretation Comments UA RBC (test 3-5 /HPF See_Comment A [Automated mes pastor] code = UA RBC) *ABN*(08/19/2011 The syste m which 15:58:00) generated this result transmitted ref erence range: <=2. The reference range was not used to int erpret this result as normal/abnormal . [facility]oundKuwgaisRYCILGDFDQ7255-89-25 21:58:00 Test Item Value Reference Range Interpretation Comments UA WBC (test code = 3 See_Comment [Automa rohit message] The UA WBC) system which ge nerated this result transmit rohit reference range : <=5. The reference range was not used to interpr et this result as reji l/abnormal. [facility]oundOgzqfclQMWKCYYBFL7416-84-54 21:58:00 Test Item Value Reference Range Interpretation Comments UA Mucus (test code = Few /LPF (08/19/2011 N UA Mucus) 15:58:00) [facility]oundFosnwvuJHYIGGBOCS4587-88-09 21:58:00 Test Item Value Reference Range Interpretation Comments UA Amorph Destiny (test Occasional /HPF A code = UA Amorph *ABN*(08/19/2011 Destiny) 15:58:00) [facility]oundVzmqchnAJNUNVVGPR0823-10-58 21:58:00 Test Item Value Reference Range Interpretation Comments UA Urobilinogen (test code = UA 0.2 0.1-1.0 N Urobilinogen) [facility]oundCvwthhfDLHOFJROVG3261-26-05 21:58:00 Test Item Value Reference Range Interpretation Comments UA Sq Epi (test code = Rare /LPF (08/19/2011 N UA Sq Epi) 15:58:00) [facility]oundTlozmyvDQQPLHRSNH2362-06-80 21:58:00 Test Item Value Reference Range Interpretation Comments Micro? (test code = Performed (08/19/2011 N Micro?) 15:58:00) [facility]oundMgpemliPZZSAIDUJQ1356-77-35 21:58:00 Test Item Value Reference Range Interpretation Comments UA Leuk Est (test Negative (08/19/2011 N code = UA Leuk Est) 15:58:00) [facility]oundOwrznusKGVYOEFGES1189-34-90 21:58:00 Test Item Value Reference Range Interpretation Comments UA Nitrite (test code Negative (08/19/2011 N = UA Nitrite) 15:58:00) [facility]oundCndmaeuEEORGUKIXI6387-01-84 21:58:00 Test Item Value Reference Range Interpretation Comments UA pH (test code = UA pH) 5.5 1 5.0-8.0 N [facility]oundZcrgecqUNARSMNQXQ5583-60-67 21:58:00 Test Item Value Reference Range Interpretation Comments UA Blood (test code = Trace *ABN*(08/19/2011 A UA Blood) 15:58:00) [facility]oundAjnyslmXYPQFVFDHN7892-30-11 21:58:00 Test Item Value Reference Range Interpretation Comments UA Bili (test code = Negative (08/19/2011 N UA Bili) 15:58:00) [facility]TbaspanDJPQTSIJFS4213-16-62 21:58:00 Test Item Value Reference Range Interpretation Comments UA Ketones (test code = 80 mg/dL A UA Ketones) *ABN*(08/19/2011 15:58:00) [facility]oundRuwwyhjKRAVSGNALL7943-86-71 21:58:00 Test Item Value Reference Range Interpretation Comments UA Glucose (test code = >=1000 mg/dL A UA Glucose) *ABN*(08/19/2011 15:58:00) [facility]oundJcotsqlAYDSIBPATQ4185-98-28 21:58:00 Test Item Value Reference Range Interpretation Comments UA Protein (test code Negative (08/19/2011 N = UA Protein) 15:58:00) [facility] NorthwestRolgidwWYFDCUOECM8086-19-18 21:58:00 Test Item Value Reference Range Interpretation Comments UA Turbidity (test code Slight Cloudy N = UA Turbidity) (08/19/2011 15:58:00) [facility] NorthwestUhbrlnmEDADTGXZIE8326-88-62 21:58:00 Test Item Value Reference Range Interpretation Comments UA Spec Grav (test code = UA Spec 1.025 1 Grav) [facility] NorthwestZpxojryNLEDUUHFWM7532-11-04 21:58:00 Test Item Value Reference Range Interpretation Comments UA Color (test code = Yellow (08/19/2011 N UA Color) 15:58:00) [facility] CenterItecacsRMIZFCZGA5874-26-31 21:58:00 Test Item Value Reference Range Interpretation Comments S Preg (test code = S Negative (08/19/2011 N Preg) 15:58:00) [facility] CenterEkkiivdLBYNNPDAS5270-52-32 21:58:00 Test Item Value Reference Range Interpretation Comments Lipase Lvl (test code = Lipase Lvl) 169 73-393 N [facility] CenterZcsadtiCFDAGECWB3306-70-82 21:58:00 Test Item Value Reference Range Interpretation Comments ALT (test code = ALT) 54 See_Comment N [Auto mated message] The system which ge nerated this result transmit rohit reference range : <=65. The reference range was not used to interpr et this result as reji l/abnormal. [facility] CenterWrztkmsTZBCJDLFG6760-69-73 21:58:00 Test Item Value Reference Range Interpretation Comments Alk Phos (test code = Alk Phos) 110 39-136 N [facility] StationPzaifkoPGZKWVMPN1894-40-83 21:58:00 Test Item Value Reference Range Interpretation Comments Bili Direct (test code 0.1 See_Comment N [Aut omated message] The = Bili Direct) system which generated this result tra nsmitted reference range : <=0.3. The reference r leo was not used to int erpret this result as reji l/abnormal. [facility] CenterCooxxtrRHDIXYTOW9355-57-57 21:58:00 Test Item Value Reference Range Interpretation Comments Bili Total (test code = Bili Total) 0.9 0.2-1.3 N [facility] CenterVfeblguYDNQNAGCG4457-96-47 21:58:00 Test Item Value Reference Range Interpretation Comments Albumin Lvl (test code = Albumin Lvl) 4.4 3.5-5.0 N [facility] CenterRnqiwwnCDAVIVLQE9774-78-12 21:58:00 Test Item Value Reference Range Interpretation Comments Total Protein (test code = Total 8.8 6.4-8.4 H Protein) [facility] CenterKrakcqlAMKERRTEC3549-40-54 21:58:00 Test Item Value Reference Range Interpretation Comments Bili Indirect (test 0.8 See_Comment N [Automa rohit message] The code = Bili Indirect) system which generated this result tra nsmitted reference range : <=1.0. The reference r leo was not used to int erpret this result as normal/abnormal . [facility] StationUwmspmjOUZFKBEFH3903-56-90 21:58:00 Test Item Value Reference Range Interpretation Comments AST (test code = AST) 36 See_Comment N [Auto mated message] The system which ge nerated this result transmit rohit reference range : <=37. The reference range was not used to interpr et this result as reji l/abnormal. [facility] StationRfvakxlNZRYQVTKW8517-68-49 21:58:00 Test Item Value Reference Range Interpretation Comments Globulin (test code = Globulin) 4.4 2.0-4.0 H [facility] CenterLzkhyalAJHHCAALU7323-87-41 21:58:00 Test Item Value Reference Range Interpretation Comments A/G Ratio (test code = A/G Ratio) 1.0 0.7-1.6 N [facility]KkhdntmRBSMRRSKRX0504-47-78 21:58:00 Test Item Value Reference Range Interpretation Comments UA Bacteria (test code Occasional /HPF N = UA Bacteria) (08/19/2011 15:58:00) [facility] HospitalZterynmUMHENOWTAQ7367-66-49 21:58:00 Test Item Value Reference Range Interpretation Comments UA RBC (test 3-5 /HPF See_Comment A [Automated mes pastor] code = UA RBC) *ABN*(08/19/2011 The syste m which 15:58:00) generated this result transmitted ref erence range: <=2. The reference range was not used to int erpret this result as normal/abnormal . [facility] HospitalVhznavjHGURZUJQNP4725-74-93 21:58:00 Test Item Value Reference Range Interpretation Comments UA WBC (test code = 3 See_Comment [Automa rohit message] The UA WBC) system which ge nerated this result transmit rohit reference range : <=5. The reference range was not used to interpr et this result as reji l/abnormal. [facility]oundUtskfdeELGJZUVBKB5284-31-70 21:58:00 Test Item Value Reference Range Interpretation Comments UA Mucus (test code = Few /LPF (08/19/2011 N UA Mucus) 15:58:00) [facility]oundYyjljlvNIUSIIPIHT8220-06-49 21:58:00 Test Item Value Reference Range Interpretation Comments UA Amorph Destiny (test Occasional /HPF A code = UA Amorph *ABN*(08/19/2011 Destiny) 15:58:00) [facility]oundLyotsuwFKUQORNOVR6831-93-37 21:58:00 Test Item Value Reference Range Interpretation Comments UA Urobilinogen (test code = UA 0.2 0.1-1.0 N Urobilinogen) [facility]oundFjtwwvrQCMTJLEBZT7591-88-48 21:58:00 Test Item Value Reference Range Interpretation Comments UA Sq Epi (test code = Rare /LPF (08/19/2011 N UA Sq Epi) 15:58:00) [facility]oundHikwsgkSQCXRGNLNV1520-71-99 21:58:00 Test Item Value Reference Range Interpretation Comments Micro? (test code = Performed (08/19/2011 N Micro?) 15:58:00) [facility]oundLfhkzczXWPGLGOWPS5101-91-80 21:58:00 Test Item Value Reference Range Interpretation Comments UA Leuk Est (test Negative (08/19/2011 N code = UA Leuk Est) 15:58:00) [facility]oundKbgbtyhWQGCSTEXRO9354-17-26 21:58:00 Test Item Value Reference Range Interpretation Comments UA Nitrite (test code Negative (08/19/2011 N = UA Nitrite) 15:58:00) [facility]oundPduyrjyHYSEBYNGHI6558-19-70 21:58:00 Test Item Value Reference Range Interpretation Comments UA pH (test code = UA pH) 5.5 1 5.0-8.0 N [facility]oundYvblftwTYCLMSNNXZ4942-27-93 21:58:00 Test Item Value Reference Range Interpretation Comments UA Blood (test code = Trace *ABN*(08/19/2011 A UA Blood) 15:58:00) [facility]oundBfeojssMIPWCWQEQJ7685-78-50 21:58:00 Test Item Value Reference Range Interpretation Comments UA Bili (test code = Negative (08/19/2011 N UA Bili) 15:58:00) [facility] NorthwestAxexomcGPITODBMSM7294-23-22 21:58:00 Test Item Value Reference Range Interpretation Comments UA Ketones (test code = 80 mg/dL A UA Ketones) *ABN*(08/19/2011 15:58:00) [facility]oundRmbfavoPEGRAQFDTM1237-91-19 21:58:00 Test Item Value Reference Range Interpretation Comments UA Glucose (test code = >=1000 mg/dL A UA Glucose) *ABN*(08/19/2011 15:58:00) [facility]oundAukjpfxARQRMASAIJ4456-50-72 21:58:00 Test Item Value Reference Range Interpretation Comments UA Protein (test code Negative (08/19/2011 N = UA Protein) 15:58:00) [facility]oundVcjpvsnAYRNGJAMQV9309-09-69 21:58:00 Test Item Value Reference Range Interpretation Comments UA Turbidity (test code Slight Cloudy N = UA Turbidity) (08/19/2011 15:58:00) [facility]oundEfostjfYRRHMAJOWV1596-54-40 21:58:00 Test Item Value Reference Range Interpretation Comments UA Spec Grav (test code = UA Spec 1.025 1 Grav) [facility]oundUlppgxmFQNBDIHJNG4130-41-16 21:58:00 Test Item Value Reference Range Interpretation Comments UA Color (test code = Yellow (08/19/2011 N UA Color) 15:58:00) [facility]yx[facility]FPJOWBISV0489-74-73 21:58:00 Test Item Value Reference Range Interpretation Comments S Preg (test code = S Negative (08/19/2011 N Preg) 15:58:00) [facility] CenterPhmxpoiUQCEHQRYQ9453-43-22 21:58:00 Test Item Value Reference Range Interpretation Comments Lipase Lvl (test code = Lipase Lvl) 169 73-393 N [facility] CenterFvbjbiwWAXMIEIGQ9927-49-17 21:58:00 Test Item Value Reference Range Interpretation Comments ALT (test code = ALT) 54 See_Comment N [Auto mated message] The system which ge nerated this result transmit rohit reference range : <=65. The reference range was not used to interpr et this result as reji l/abnormal. [facility] CenterZnqbxqhFOSEKQBEK9876-66-78 21:58:00 Test Item Value Reference Range Interpretation Comments Alk Phos (test code = Alk Phos) 110 39-136 N [facility] CenterCfedqixARBOYHFAZ3807-65-00 21:58:00 Test Item Value Reference Range Interpretation Comments Bili Direct (test code 0.1 See_Comment N [Aut omated message] The = Bili Direct) system which generated this result tra nsmitted reference range : <=0.3. The reference r leo was not used to int erpret this result as reji l/abnormal. [facility] CenterFmboffcHGSIRFPWJ8241-71-86 21:58:00 Test Item Value Reference Range Interpretation Comments Bili Total (test code = Bili Total) 0.9 0.2-1.3 N [facility] CenterRybmoluJOUQEBRDV6528-91-41 21:58:00 Test Item Value Reference Range Interpretation Comments Albumin Lvl (test code = Albumin Lvl) 4.4 3.5-5.0 N [facility] CenterQylpvfwACPHUUONI8990-56-09 21:58:00 Test Item Value Reference Range Interpretation Comments Total Protein (test code = Total 8.8 6.4-8.4 H Protein) [facility] CenterQtbdbvnDQMTGOPZH6753-43-56 21:58:00 Test Item Value Reference Range Interpretation Comments Bili Indirect (test 0.8 See_Comment N [Automa rohit message] The code = Bili Indirect) system which generated this result tra nsmitted reference range : <=1.0. The reference r leo was not used to int erpret this result as normal/abnormal . [facility] CenterHrzzzdcEYYAYSUXB0704-43-26 21:58:00 Test Item Value Reference Range Interpretation Comments AST (test code = AST) 36 See_Comment N [Auto mated message] The system which ge nerated this result transmit rohit reference range : <=37. The reference range was not used to interpr et this result as reji l/abnormal. [facility] CenterZsygwttVZAVXHVIQ5752-80-24 21:58:00 Test Item Value Reference Range Interpretation Comments Globulin (test code = Globulin) 4.4 2.0-4.0 H [facility] CenterWicqzkdYIIWXIRAD7207-11-34 21:58:00 Test Item Value Reference Range Interpretation Comments A/G Ratio (test code = A/G Ratio) 1.0 0.7-1.6 N [facility] NorthwestGgpxxplBJPALNJGPP1064-89-88 21:58:00 Test Item Value Reference Range Interpretation Comments UA Bacteria (test code Occasional /HPF N = UA Bacteria) (08/19/2011 15:58:00) [facility] NorthwestAqhapbwTAMHTUGYMI4913-89-53 21:58:00 Test Item Value Reference Range Interpretation Comments UA RBC (test 3-5 /HPF See_Comment A [Automated mes pastor] code = UA RBC) *ABN*(08/19/2011 The syste m which 15:58:00) generated this result transmitted ref erence range: <=2. The reference range was not used to int erpret this result as normal/abnormal . [facility]oundGvgxcfnNRNICZPVFR0495-41-12 21:58:00 Test Item Value Reference Range Interpretation Comments UA WBC (test code = 3 See_Comment [Automa rohit message] The UA WBC) system which ge nerated this result transmit rohit reference range : <=5. The reference range was not used to interpr et this result as reji l/abnormal. [facility]TmlnfawTDFLHTWUQD7385-24-96 21:58:00 Test Item Value Reference Range Interpretation Comments UA Mucus (test code = Few /LPF (08/19/2011 N UA Mucus) 15:58:00) [facility] NorthwestZexcirhBISQNQBILB1232-76-25 21:58:00 Test Item Value Reference Range Interpretation Comments UA Amorph Destiny (test Occasional /HPF A code = UA Amorph *ABN*(08/19/2011 Destiny) 15:58:00) [facility] NorthwestVlthxbiGRMFFRASZT2972-49-56 21:58:00 Test Item Value Reference Range Interpretation Comments UA Urobilinogen (test code = UA 0.2 0.1-1.0 N Urobilinogen) [facility]oundAacsteiNRDIQQQYWE7095-60-55 21:58:00 Test Item Value Reference Range Interpretation Comments UA Sq Epi (test code = Rare /LPF (08/19/2011 N UA Sq Epi) 15:58:00) [facility]oundXhhfjjtKQCQWYQODQ7965-69-18 21:58:00 Test Item Value Reference Range Interpretation Comments Micro? (test code = Performed (08/19/2011 N Micro?) 15:58:00) [facility]oundMbunzmkMYLAFEIQKL4844-78-29 21:58:00 Test Item Value Reference Range Interpretation Comments UA Leuk Est (test Negative (08/19/2011 N code = UA Leuk Est) 15:58:00) [facility] NorthwestQisdxjwIZHTWFTHKR8344-73-21 21:58:00 Test Item Value Reference Range Interpretation Comments UA Nitrite (test code Negative (08/19/2011 N = UA Nitrite) 15:58:00) [facility]oundLvnrszjDTTRUJHRHA9188-46-00 21:58:00 Test Item Value Reference Range Interpretation Comments UA pH (test code = UA pH) 5.5 1 5.0-8.0 N [facility]oundJdcoqipNWUZVLBYWO8889-23-81 21:58:00 Test Item Value Reference Range Interpretation Comments UA Blood (test code = Trace *ABN*(08/19/2011 A UA Blood) 15:58:00) [facility] NorthwestOnxccpvCIOFFDGVBY8880-94-30 21:58:00 Test Item Value Reference Range Interpretation Comments UA Bili (test code = Negative (08/19/2011 N UA Bili) 15:58:00) [facility]oundLowerzrXVWMCRUIXY1232-81-49 21:58:00 Test Item Value Reference Range Interpretation Comments UA Ketones (test code = 80 mg/dL A UA Ketones) *ABN*(08/19/2011 15:58:00) [facility] NorthwestIzndyaxQAJLLIACEZ4000-12-88 21:58:00 Test Item Value Reference Range Interpretation Comments UA Glucose (test code = >=1000 mg/dL A UA Glucose) *ABN*(08/19/2011 15:58:00) [facility]oundYpqlxfhGUVQUYXVAY4293-12-58 21:58:00 Test Item Value Reference Range Interpretation Comments UA Protein (test code Negative (08/19/2011 N = UA Protein) 15:58:00) [facility] MoundAqmwumbUWZXNGYWVE1693-73-02 21:58:00 Test Item Value Reference Range Interpretation Comments UA Turbidity (test code Slight Cloudy N = UA Turbidity) (08/19/2011 15:58:00) [facility] NorthwestOnryxiuAAMTZBYIOZ1896-17-63 21:58:00 Test Item Value Reference Range Interpretation Comments UA Spec Grav (test code = UA Spec 1.025 1 Grav) [facility]oundCjpxbjpHCBFPKGGSG0149-98-63 21:58:00 Test Item Value Reference Range Interpretation Comments UA Color (test code = Yellow (08/19/2011 N UA Color) 15:58:00) [facility] CenterDdixipwOFNWEJUZX4460-93-28 21:13:00 Test Item Value Reference Range Interpretation Comments AST (test code = AST) 23 See_Comment N [Auto mated message] The system which ge nerated this result transmit rohit reference range : <=37. The reference range was not used to interpr et this result as reji l/abnormal. [facility] CenterDridvupVDFANEBUA1304-03-15 21:13:00 Test Item Value Reference Range Interpretation Comments Bili Total (test code = Bili Total) 1.0 0.2-1.3 N [facility] CenterIxlmplbVYJZDROJR1048-19-92 21:13:00 Test Item Value Reference Range Interpretation Comments Alk Phos (test code = Alk Phos) 115 39-136 N [facility] CenterFouzencAJZUWSSVR6002-73-38 21:13:00 Test Item Value Reference Range Interpretation Comments ALT (test code = ALT) 56 See_Comment N [Auto mated message] The system which ge nerated this result transmit rohit reference range : <=65. The reference range was not used to interpr et this result as reji l/abnormal. [facility] CenterZakoaoxDCCQTCWDS5748-78-20 21:13:00 Test Item Value Reference Range Interpretation Comments Total Protein (test code = Total 9.0 6.4-8.4 H Protein) [facility] CenterAtbwaecRQBPDDRFE3525-85-69 21:13:00 Test Item Value Reference Range Interpretation Comments Albumin Lvl (test code = Albumin Lvl) 4.8 3.5-5.0 N [facility] CenterDyudvkyZLYZQKQLG1645-54-27 21:13:00 Test Item Value Reference Range Interpretation Comments Globulin (test code = Globulin) 4.2 2.0-4.0 H [facility] CenterVwkxjzaRWUJDNXUE6149-87-82 21:13:00 Test Item Value Reference Range Interpretation Comments A/G Ratio (test code = A/G Ratio) 1.1 0.7-1.6 N [facility] CenterPnqwjsqLAKHSLCQU2243-77-48 21:13:00 Test Item Value Reference Range Interpretation Comments B/C Ratio (test code = B/C Ratio) 30 6-25 H [facility]AugrqycEEJSVRJGTQ6213-00-80 21:13:00 Test Item Value Reference Range Interpretation Comments RBC Morph (test code = Normal (08/19/2011 N RBC Morph) 15:13:00) [facility]anoZmhnshzULCTWZSZOQ0770-70-56 21:13:00 Test Item Value Reference Range Interpretation Comments Large Plt (test code = Slight *ABN*(08/19/2011 A Large Plt) 15:13:00) [facility]anoDhgxjuaZAVFAEYBZT6290-29-07 21:13:00 Test Item Value Reference Range Interpretation Comments Atypical Lymphs (test code = Atypical 0.0 N Lymphs) [facility]anoEdyuufvGGWTHTHEBK1303-30-72 21:13:00 Test Item Value Reference Range Interpretation Comments Bands (test code = 0.0 See_Comment N [Automat ed message] The Bands) system which ge nerated this result transmit rohit reference range : <=11.0. The reference r leo was not used to interpr et this result as reji l/abnormal. [facility] CenterUjjbnafLTQDGRNPJ2308-79-91 21:13:00 Test Item Value Reference Range Interpretation Comments AST (test code = AST) 23 See_Comment N [Auto mated message] The system which ge nerated this result transmit rohit reference range : <=37. The reference range was not used to interpr et this result as reji l/abnormal. [facility] CenterYitvjkoFOITADGXA3416-49-06 21:13:00 Test Item Value Reference Range Interpretation Comments Bili Total (test code = Bili Total) 1.0 0.2-1.3 N [facility] CenterKqapzygORMCKQFZP5086-26-11 21:13:00 Test Item Value Reference Range Interpretation Comments Alk Phos (test code = Alk Phos) 115 39-136 N [facility] CenterYbarbxiOYHGAOKQU2680-34-12 21:13:00 Test Item Value Reference Range Interpretation Comments ALT (test code = ALT) 56 See_Comment N [Auto mated message] The system which ge nerated this result transmit rohit reference range : <=65. The reference range was not used to interpr et this result as reji l/abnormal. [facility] CenterIzovdqqFHZACLPKG8918-56-35 21:13:00 Test Item Value Reference Range Interpretation Comments Total Protein (test code = Total 9.0 6.4-8.4 H Protein) [facility] CenterGfszkvoRELRKPEHO2156-29-71 21:13:00 Test Item Value Reference Range Interpretation Comments Albumin Lvl (test code = Albumin Lvl) 4.8 3.5-5.0 N [facility] CenterHfmkjfoGZDPTGVKA0974-73-16 21:13:00 Test Item Value Reference Range Interpretation Comments Globulin (test code = Globulin) 4.2 2.0-4.0 H [facility] CenterDlqoxqhHMVPNZQGV0142-25-99 21:13:00 Test Item Value Reference Range Interpretation Comments A/G Ratio (test code = A/G Ratio) 1.1 0.7-1.6 N [facility] CenterLysotdxOLYALVQXD8699-23-73 21:13:00 Test Item Value Reference Range Interpretation Comments B/C Ratio (test code = B/C Ratio) 30 6-25 H [facility]anoZabqjncCIOEEOKCUQ7580-27-48 21:13:00 Test Item Value Reference Range Interpretation Comments RBC Morph (test code = Normal (08/19/2011 N RBC Morph) 15:13:00) [facility]anoJfswbljOXAKJPTKFT9390-79-52 21:13:00 Test Item Value Reference Range Interpretation Comments Large Plt (test code = Slight *ABN*(08/19/2011 A Large Plt) 15:13:00) [facility]anoZxyexbvUJIQVQAWWJ4633-99-59 21:13:00 Test Item Value Reference Range Interpretation Comments Atypical Lymphs (test code = Atypical 0.0 N Lymphs) [facility]anoHnnaaogBCUBVCENVW8881-28-88 21:13:00 Test Item Value Reference Range Interpretation Comments Bands (test code = 0.0 See_Comment N [Automat ed message] The Bands) system which ge nerated this result transmit rohit reference range : <=11.0. The reference r leo was not used to interpr et this result as reji l/abnormal. [facility] CenterVfedjdaNFBBBPRLF4872-83-10 21:13:00 Test Item Value Reference Range Interpretation Comments AST (test code = AST) 23 See_Comment N [Auto mated message] The system which ge nerated this result transmit rohit reference range : <=37. The reference range was not used to interpr et this result as reji l/abnormal. [facility] CenterYrgjjicTWWCTIDRD3385-90-52 21:13:00 Test Item Value Reference Range Interpretation Comments Bili Total (test code = Bili Total) 1.0 0.2-1.3 N [facility] CenterMeierrpCFPLZUMPT5078-60-68 21:13:00 Test Item Value Reference Range Interpretation Comments Alk Phos (test code = Alk Phos) 115 39-136 N [facility] CenterZdgtyazYBUXHCMMH2994-44-71 21:13:00 Test Item Value Reference Range Interpretation Comments ALT (test code = ALT) 56 See_Comment N [Auto mated message] The system which ge nerated this result transmit rohit reference range : <=65. The reference range was not used to interpr et this result as reji l/abnormal. [facility] CenterCmqhgxyNGPOCDQWC0848-25-22 21:13:00 Test Item Value Reference Range Interpretation Comments Total Protein (test code = Total 9.0 6.4-8.4 H Protein) [facility] CenterTrpauneFAEUPNLFE4179-52-63 21:13:00 Test Item Value Reference Range Interpretation Comments Albumin Lvl (test code = Albumin Lvl) 4.8 3.5-5.0 N [facility] CenterYqxoifrQYMQXVOKU1762-79-70 21:13:00 Test Item Value Reference Range Interpretation Comments Globulin (test code = Globulin) 4.2 2.0-4.0 H [facility] CenterYicbyilIDRFGFIUF3674-90-68 21:13:00 Test Item Value Reference Range Interpretation Comments A/G Ratio (test code = A/G Ratio) 1.1 0.7-1.6 N [facility] CenterSwkzhaqTPHXHPLVZ2616-04-25 21:13:00 Test Item Value Reference Range Interpretation Comments B/C Ratio (test code = B/C Ratio) 30 6-25 H [facility]anoCjgddbgAGMINQUGKQ9450-95-23 21:13:00 Test Item Value Reference Range Interpretation Comments RBC Morph (test code = Normal (08/19/2011 N RBC Morph) 15:13:00) [facility]anoWhedmdoKHZVQRYIJD4382-94-77 21:13:00 Test Item Value Reference Range Interpretation Comments Large Plt (test code = Slight *ABN*(08/19/2011 A Large Plt) 15:13:00) [facility]anoImmjdtkFHHMVOLUAE2300-76-27 21:13:00 Test Item Value Reference Range Interpretation Comments Atypical Lymphs (test code = Atypical 0.0 N Lymphs) [facility]anoCcmbczqUYQENJUART9771-34-64 21:13:00 Test Item Value Reference Range Interpretation Comments Bands (test code = 0.0 See_Comment N [Automat ed message] The Bands) system which ge nerated this result transmit rohit reference range : <=11.0. The reference r leo was not used to interpr et this result as reji l/abnormal. [facility] CenterJdbhditHLUKRSEHG0735-06-06 21:13:00 Test Item Value Reference Range Interpretation Comments AST (test code = AST) 23 See_Comment N [Auto mated message] The system which ge nerated this result transmit rohit reference range : <=37. The reference range was not used to interpr et this result as reji l/abnormal. [facility] CenterUsvqetoAZXVTZSII0970-65-50 21:13:00 Test Item Value Reference Range Interpretation Comments Bili Total (test code = Bili Total) 1.0 0.2-1.3 N [facility] CenterSnhgqvnMZHZCZTAA5334-56-40 21:13:00 Test Item Value Reference Range Interpretation Comments Alk Phos (test code = Alk Phos) 115 39-136 N [facility] CenterRqtfjlvLCZOZVFKO8111-49-49 21:13:00 Test Item Value Reference Range Interpretation Comments ALT (test code = ALT) 56 See_Comment N [Auto mated message] The system which ge nerated this result transmit rohit reference range : <=65. The reference range was not used to interpr et this result as reji l/abnormal. [facility] CenterBhgtyqkIJBGEUXUK7139-54-19 21:13:00 Test Item Value Reference Range Interpretation Comments Total Protein (test code = Total 9.0 6.4-8.4 H Protein) [facility] CenterXddynaqPKZHKULCH9129-45-70 21:13:00 Test Item Value Reference Range Interpretation Comments Albumin Lvl (test code = Albumin Lvl) 4.8 3.5-5.0 N [facility] CenterDpwuuobNDHKPYWWO0459-60-66 21:13:00 Test Item Value Reference Range Interpretation Comments Globulin (test code = Globulin) 4.2 2.0-4.0 H [facility] CenterTibzobiCFZZWEVYE7457-23-47 21:13:00 Test Item Value Reference Range Interpretation Comments A/G Ratio (test code = A/G Ratio) 1.1 0.7-1.6 N [facility] CenterEfdojdbDQOAPLRMB5678-22-72 21:13:00 Test Item Value Reference Range Interpretation Comments B/C Ratio (test code = B/C Ratio) 30 6-25 H [facility]anoOtnbgltRKUXPDOQVJ6131-09-93 21:13:00 Test Item Value Reference Range Interpretation Comments RBC Morph (test code = Normal (08/19/2011 N RBC Morph) 15:13:00) [facility]anoEiwblgwFBSJWTVYCN7011-85-98 21:13:00 Test Item Value Reference Range Interpretation Comments Large Plt (test code = Slight *ABN*(08/19/2011 A Large Plt) 15:13:00) [facility]anoFvqgbohZYTIGNBNLR7545-41-10 21:13:00 Test Item Value Reference Range Interpretation Comments Atypical Lymphs (test code = Atypical 0.0 N Lymphs) [facility]anoPpprkkzCBXCNDRVSO6387-80-53 21:13:00 Test Item Value Reference Range Interpretation Comments Bands (test code = 0.0 See_Comment N [Automat ed message] The Bands) system which ge nerated this result transmit rohit reference range : <=11.0. The reference r leo was not used to interpr et this result as reji l/abnormal. [facility] CenterGjzjhyuMAYUDHVBN7000-06-42 21:13:00 Test Item Value Reference Range Interpretation Comments AST (test code = AST) 23 See_Comment N [Auto mated message] The system which ge nerated this result transmit rohit reference range : <=37. The reference range was not used to interpr et this result as reji l/abnormal. [facility] CenterJzbddjaCCCKZXMTG9758-91-38 21:13:00 Test Item Value Reference Range Interpretation Comments Bili Total (test code = Bili Total) 1.0 0.2-1.3 N [facility] CenterVbgkfrmYTQARSLCG4182-33-44 21:13:00 Test Item Value Reference Range Interpretation Comments Alk Phos (test code = Alk Phos) 115 39-136 N [facility] CenterQihzzamUQQZAQUEQ0240-76-26 21:13:00 Test Item Value Reference Range Interpretation Comments ALT (test code = ALT) 56 See_Comment N [Auto mated message] The system which ge nerated this result transmit rohit reference range : <=65. The reference range was not used to interpr et this result as reji l/abnormal. [facility] CenterLjogopkUPUGQAUUX6020-15-27 21:13:00 Test Item Value Reference Range Interpretation Comments Total Protein (test code = Total 9.0 6.4-8.4 H Protein) [facility] CenterNvrlydjSEWJLDPCP1811-08-54 21:13:00 Test Item Value Reference Range Interpretation Comments Albumin Lvl (test code = Albumin Lvl) 4.8 3.5-5.0 N [facility] CenterNnphowdBHXFNGCHA0484-16-90 21:13:00 Test Item Value Reference Range Interpretation Comments Globulin (test code = Globulin) 4.2 2.0-4.0 H [facility] CenterLhegfrhOLXRGIBIQ8160-61-21 21:13:00 Test Item Value Reference Range Interpretation Comments A/G Ratio (test code = A/G Ratio) 1.1 0.7-1.6 N [facility] CenterLthbcqwPJYRAKFQS7870-85-56 21:13:00 Test Item Value Reference Range Interpretation Comments B/C Ratio (test code = B/C Ratio) 30 6-25 H [facility]anoWdidocpMGPDENPRXH4822-23-05 21:13:00 Test Item Value Reference Range Interpretation Comments RBC Morph (test code = Normal (08/19/2011 N RBC Morph) 15:13:00) [facility]anoAzhxkfvXPIFLNDOVS5008-24-62 21:13:00 Test Item Value Reference Range Interpretation Comments Large Plt (test code = Slight *ABN*(08/19/2011 A Large Plt) 15:13:00) [facility]anoVtuuuzjJQNZLDAUYS9055-94-89 21:13:00 Test Item Value Reference Range Interpretation Comments Atypical Lymphs (test code = Atypical 0.0 N Lymphs) [facility]anoYmdgyorTXIENPVVSF0935-28-90 21:13:00 Test Item Value Reference Range Interpretation Comments Bands (test code = 0.0 See_Comment N [Automat ed message] The Bands) system which ge nerated this result transmit rohit reference range : <=11.0. The reference r leo was not used to interpr et this result as reji l/abnormal. [facility] CenterXlxptrpRRGIATUZQ7382-94-02 21:10:00 Test Item Value Reference Range Interpretation Comments O2 Sat Roberth (test code = O2 Sat Roberth) 74.0 40.0-70.0 H [facility] CenterZaicxfeVPOZNNXTB0559-75-41 21:10:00 Test Item Value Reference Range Interpretation Comments Temp Roberth (test code = Temp Roberth) 37.0 [facility] CenterMefxddoEBYHGLQRM8726-97-18 21:10:00 Test Item Value Reference Range Interpretation Comments pO2 Roberth (test code = pO2 Roberth) 42 20-49 N [facility] CenterWapolirZQNXYZBDF0450-79-90 21:10:00 Test Item Value Reference Range Interpretation Comments HCO3 Roberth (test code = HCO3 Roberth) 17.3 22.0-26.0 L [facility] CenterOwqfnuoXYYFSIMDL2654-32-15 21:10:00 Test Item Value Reference Range Interpretation Comments pH Roberth (test code = pH Roberth) 7.34 7.28-7.42 N [facility] CenterYvqdvwoBRBVNJRWK2164-44-05 21:10:00 Test Item Value Reference Range Interpretation Comments pCO2 Roberth (test code = pCO2 Roberth) 32 38-52 L [facility] CenterCnlonvjKDLNDSJAQ2781-52-91 21:10:00 Test Item Value Reference Range Interpretation Comments BE Roberth (test code = -7 See_Comment L [Automa rohit message] The BE Roberth) system which ge nerated this result transmit rohit reference range : <=2. The reference range was not used to interpr et this result as reji l/abnormal. [facility] CenterMpmqnceDQBHKDERA4854-40-60 21:10:00 Test Item Value Reference Range Interpretation Comments O2 Sat Roberth (test code = O2 Sat Roberth) 74.0 40.0-70.0 H [facility] CenterShicqrsJUZJQEVDV3009-62-65 21:10:00 Test Item Value Reference Range Interpretation Comments Temp Roberth (test code = Temp Roberth) 37.0 [facility] [id number] 21:10:00 Test Item Value Reference Range Interpretation Comments pO2 Roberth (test code = pO2 Roberth) 42 20-49 N [facility] Cen[id number] 21:10:00 Test Item Value Reference Range Interpretation Comments HCO3 Roberth (test code = HCO3 Roberth) 17.3 22.0-26.0 L [facility] CenterTyiakvzESAJHFAIU3661-01-37 21:10:00 Test Item Value Reference Range Interpretation Comments pH Roberth (test code = pH Roberth) 7.34 7.28-7.42 N [facility] CenterGfguerlHRIQDKYLN4650-70-54 21:10:00 Test Item Value Reference Range Interpretation Comments pCO2 Roberth (test code = pCO2 Roebrth) 32 38-52 L [facility] Cen[id number] 21:10:00 Test Item Value Reference Range Interpretation Comments BE Roberth (test code = -7 See_Comment L [Automa rohit message] The BE Roberth) system which ge nerated this result transmit rohit reference range : <=2. The reference range was not used to interpr et this result as reji l/abnormal. [facility] Cen[id number] 21:10:00 Test Item Value Reference Range Interpretation Comments O2 Sat Roberth (test code = O2 Sat Roberth) 74.0 40.0-70.0 H [facility] CenterPnkrcjgGELZIUWGI5689-63-08 21:10:00 Test Item Value Reference Range Interpretation Comments Temp Roberth (test code = Temp Roberth) 37.0 [facility] Cen[id number] 21:10:00 Test Item Value Reference Range Interpretation Comments pO2 Roberth (test code = pO2 Roberth) 42 20-49 N [facility] Cen[id number] 21:10:00 Test Item Value Reference Range Interpretation Comments HCO3 Roberth (test code = HCO3 Roberth) 17.3 22.0-26.0 L [facility] Cen[id number] 21:10:00 Test Item Value Reference Range Interpretation Comments pH Roberth (test code = pH Roberth) 7.34 7.28-7.42 N [facility] CenterNehotwiPUAEBSWLY2797-76-83 21:10:00 Test Item Value Reference Range Interpretation Comments pCO2 Roberth (test code = pCO2 Roberth) 32 38-52 L [facility] Cen[id number] 21:10:00 Test Item Value Reference Range Interpretation Comments BE Roberth (test code = -7 See_Comment L [Automa rohit message] The BE Roberth) system which ge nerated this result transmit rohit reference range : <=2. The reference range was not used to interpr et this result as reji l/abnormal. [facility] Cen[id number] 21:10:00 Test Item Value Reference Range Interpretation Comments O2 Sat Roberth (test code = O2 Sat Roberth) 74.0 40.0-70.0 H [facility] Cen[id number] 21:10:00 Test Item Value Reference Range Interpretation Comments Temp Roberth (test code = Temp Roberth) 37.0 [facility] Cen[id number] 21:10:00 Test Item Value Reference Range Interpretation Comments pO2 Roberth (test code = pO2 Roberth) 42 20-49 N [facility] Cen[id number] 21:10:00 Test Item Value Reference Range Interpretation Comments HCO3 Roberth (test code = HCO3 Roberth) 17.3 22.0-26.0 L [facility] Cen[id number] 21:10:00 Test Item Value Reference Range Interpretation Comments pH Roberth (test code = pH Roberth) 7.34 7.28-7.42 N [facility] CenterZwhxwgtODIPSBIXH1649-69-01 21:10:00 Test Item Value Reference Range Interpretation Comments pCO2 Roberth (test code = pCO2 Roberth) 32 38-52 L [facility] Cen[id number] 21:10:00 Test Item Value Reference Range Interpretation Comments BE Roberth (test code = -7 See_Comment L [Automa rohit message] The BE Roberth) system which ge nerated this result transmit rohit reference range : <=2. The reference range was not used to interpr et this result as reji l/abnormal. [facility] CenterNuobalpTIHDCLWVI1664-40-27 21:10:00 Test Item Value Reference Range Interpretation Comments O2 Sat Roberth (test code = O2 Sat Roberth) 74.0 40.0-70.0 H [facility] Center[id number] 21:10:00 Test Item Value Reference Range Interpretation Comments Temp Roberth (test code = Temp Roberth) 37.0 [facility] Cen[id number] 21:10:00 Test Item Value Reference Range Interpretation Comments pO2 Roberth (test code = pO2 Roberth) 42 20-49 N [facility] Cen[id number] 21:10:00 Test Item Value Reference Range Interpretation Comments HCO3 Roberth (test code = HCO3 Roberth) 17.3 22.0-26.0 L [facility] Cen[id number] 21:10:00 Test Item Value Reference Range Interpretation Comments pH Roberth (test code = pH Roberth) 7.34 7.28-7.42 N [facility] Cen[id number] 21:10:00 Test Item Value Reference Range Interpretation Comments pCO2 Roberth (test code = pCO2 Roberth) 32 38-52 L [facility] Center[id number] 21:10:00 Test Item Value Reference Range Interpretation Comments BE Roberth (test code = -7 See_Comment L [Automa rohit message] The BE Roberth) system which ge nerated this result transmit rohit reference range : <=2. The reference range was not used to interpr et this result as reji l/abnormal. [id number] 20:34:00 Test Item Value Reference Range Interpretation Comments CDC-HIV 1/2 Ab (test Negative *NA*(08/19/2011 code = CDC-HIV 1/2 14:34:00) Ab) [facility] [id number] 20:34:00 Test Item Value Reference Range Interpretation Comments CDC-HIV 1/2 Ab (test Negative *NA*(08/19/2011 code = CDC-HIV 1/2 14:34:00) Ab) [facility] [id number] 20:34:00 Test Item Value Reference Range Interpretation Comments CDC-HIV 1/2 Ab (test Negative *NA*(08/19/2011 code = CDC-HIV 1/2 14:34:00) Ab) [facility] [id number] 20:34:00 Test Item Value Reference Range Interpretation Comments CDC-HIV 1/2 Ab (test Negative *NA*(08/19/2011 code = CDC-HIV 1/2 14:34:00) Ab) [facility] [id number] 20:34:00 Test Item Value Reference Range Interpretation Comments CDC-HIV 1/2 Ab (test Negative *NA*(08/19/2011 code = CDC-HIV 1/2 14:34:00) Ab) [facility]
[2022-11-12] MEDS ORDERED: TRAMADOL HCL 50 MG TAB ONE (22:51)
[2022-11-12] MEDS ORDERED: ONDANSETRON 4 MG (ODT) TAB ONE (22:52)
[2022-11-12] MEDS ORDERED: SMZ./TMP. 800/160 MG TABLET ONE (22:52)
[2022-11-12] MEDS ORDERED: CEPHALEXIN 250 MG CAP ONE (22:52)
--- NOTE | 2022-11-13 00:07 | EDPHYS ---
Physician Documentation [facility] Name: Cathi Found Age: 42 yrs Sex: Female : 1980 Arrival Date: 11/12/2022 Time: 20:45 Bed DIS4 Private MD: ED Physician Avel Kelley HPI: 11/12 21:57 This 42 yrs old Female presents to ER via Unassigned with complaints of Eye sp4 Pain. 23:57 Ms. alley Winkler is 42-year-old female presents with artificial left eye pain and redness sp4 all the left upper and lower eyelids. Onset of redness was yesterday. Patient states that left artificial eye has been infected before with cellulitic eyelids. Patient reported swelling of upper and lower left eyelids and pain associated with left artificial eye. . 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 - Irregular menses lg3 Historical: - Allergies: 22:15 ambien; lg3 22:15 Codeine; lg3 22:15 GUAIFENESIN; lg3 22:15 Lisinopril; lg3 22:15 Morphine; lg3 22:15 Nitrofurantoin Macrocrystal; lg3 22:15 PENICILLINS; lg3 22:15 Prolixin; lg3 22:15 zolpidem tartrate; lg3 - Home Meds: 22:15 Unable to obtain [Active]; lg3 - PMHx: 22:15 "mental problems"; cardiac arrest; CHF; chronic kidney disease; cyclic vomiting lg3 syndrome; Diabetes - NIDDM; Dialysis; m-w-f; ENCEPHALOPATHY; Gastroparesis; Hypertension; ibs; liver failure; PERIPHERAL NEUROPATHY; pseudo aneurysm R groin; Seizures; - PSHx: 22:15 section; dialysis catheter R chest wall; eye removed; lg3 - Immunization history:: Adult Immunizations up to date, Client reports having NOT received the Covid vaccine. Flu vaccine is up to date. - Social history:: Smoking status: Patient denies any tobacco usage or history of. Patient/guardian denies using alcohol, street drugs. - Family history:: not pertinent. ROS: 23:57 Constitutional: Negative for fever, chills, and weight loss, Eyes: Negative for injury, sp4 positive for pain around left artificial eye. Positive for pain redness swelling of the left upper and lower eyelids. Positive for purulent discharge from the left artificial eye. ENT: Negative for injury, pain, and discharge, Neck: Negative for injury, pain, and swelling, Cardiovascular: Negative for chest pain, palpitations, and edema, Respiratory: Negative for shortness of breath, cough, wheezing, and pleuritic chest pain, Abdomen/GI: Negative for abdominal pain, nausea, vomiting, diarrhea, and constipation, Back: Negative for injury and pain, : Negative for injury, bleeding, discharge, and swelling, MS/Extremity: Negative for injury and deformity, Skin: Negative for injury, rash, and discoloration, Neuro: Negative for headache, weakness, numbness, tingling, and seizure, Psych: Negative for depression, anxiety, Allergy/Immunology: Negative for hives, rash, and allergies Endocrine: Negative for neck swelling, polydipsia, polyuria, polyphagia, and weight changes Hematologic/Lymphatic: Negative for swollen nodes, abnormal bleeding, and unusual bruising Exam: 23:57 Constitutional: This is a well developed, well nourished patient who is awake, alert, sp4 and in no acute distress. Head/Face: Normocephalic, atraumatic. Eyes: Right eye examination is normal. There is artificial left eye inset, there is some redness swelling over the upper and lower left eyelids. There is also some purulent discharge from the left eye socket. Exam consistent with cellulitic upper and lower eyelids and an acute infectious process that is rather mild. ENT: Nares patent. No nasal discharge, no septal abnormalities noted. Tympanic membranes are normal and external auditory canals are clear. Oropharynx with no redness, swelling, or masses, exudates, or evidence of obstruction, uvula midline. Mucous membranes moist. Neck: Trachea midline, no thyromegaly or masses palpated, and no cervical lymphadenopathy. Supple, full range of motion without nuchal rigidity, or vertebral point tenderness. No Meningismus. Chest/axilla: Normal chest wall appearance and motion. Nontender with no deformity. No lesions are appreciated. Cardiovascular: Regular rate and rhythm with a normal S1 and S2. No gallops, murmurs, or rubs. Normal PMI, no JVD. No pulse deficits. Respiratory: Lungs have equal breath sounds bilaterally, clear to auscultation and percussion. No rales, rhonchi or wheezes noted. No increased work of breathing, no retractions or nasal flaring. Abdomen/GI: Soft, non-tender, with normal bowel sounds. No distension or tympany. No guarding or rebound. No evidence of tenderness throughout. Back: No spinal tenderness. No costovertebral tenderness. Skin: Warm, dry with normal turgor. Normal color with no rashes, no lesions, and no evidence of cellulitis. MS/ Extremity: Pulses equal, no cyanosis. Neurovascular intact. Full, normal range of motion. Neuro: Awake and alert, GCS 15, oriented to person, place, time, and situation. Cranial nerves II-XII grossly intact. Motor strength 5/5 in all extremities. Sensory grossly intact. Psych: Awake, alert, with orientation to person, place and time. Behavior, mood, and affect are within normal limits Vital Signs: 22:13 BP 137 / 84; Pulse 76; Resp 17 S; Temp 98.1(O); Pulse Ox 98% on R/A; Weight 75.75 kg lg3 (R); Height 5 ft. 1 in. (R); 11/13 00:00 BP 135 / 79; Pulse 79; Resp 16; Pulse Ox 99% ; Pain 4/10; pf1 11/12 22:13 Body Mass Index 31.55 (75.75 kg, 154.94 cm) lg3 11/13 00:00 Pain Scale: Adult pf1 MDM: 11/12 21:58 Patient medically screened. sp4 11/13 00:02 Differential diagnosis: Foreign body in Periorbital cellulitis. Preseptal cellulitis. sp4 Data reviewed: vital signs, nurses notes, old medical records. ED course: Patient has mild upper and lower eyelid cellulitis with mild purulent discharge from left eye socket associated with infection of artificial left eye inset. Patient was advised to irrigate left artificial eye inset twice a day with sterile saline. Also irrigate the eye socket. Will provide tobramycin ophthalmic drops. Cephalexin. And Bactrim.. Administered Medications: 11/12 22:50 Drug: Cephalexin PO 500 mg Route: PO; pf1 23:50 Follow up: Response: No adverse reaction pf1 22:50 Drug: Trimethoprim-Sulfamethoxazole PO (160 mg-800 mg (DS) 1 tablet Route: PO; pf1 23:50 Follow up: Response: No adverse reaction pf1 22:50 Drug: traMADol PO 100 mg Route: PO; pf1 23:50 Follow up: Response: No adverse reaction; Marked relief of symptoms; Pain is decreased; pf1 RASS: Alert and Calm (0) 22:50 Drug: Ondansetron PO 4 mg Route: PO; pf1 23:50 Follow up: Response: No adverse reaction; Marked relief of symptoms pf1 Disposition Summary: 11/13/22 00:06 Discharge Ordered Location: Home sp4 Problem: new sp4 Symptoms: have improved sp4 Condition: Stable sp4 Diagnosis - Cellulitis of face sp4 - Left periorbital cellulitis. Left artificial eye infection. sp4 Followup: sp4 - With: Private Physician - When: 5 - 6 days - Reason: Recheck today's complaints Discharge Instructions: - Discharge Summary Sheet sp4 - Cellulitis, Adult sp4 Forms: - Prescription Opioid Use sp4 Prescriptions: - Cephalexin 500 mg Oral Capsule - take 1 capsule by ORAL route every 12 hours for 10 days; 20 capsule; Refills: sp4 0, Product Selection Permitted - Tramadol 50 mg Oral Tablet - take 1 tablet by ORAL route every 8 hours as needed; 12 tablet; Refills: 0, sp4 Product Selection Permitted - Bactrim DS 800-160 mg Oral Tablet - take 1 tablet by ORAL route every 12 hours for 10 days; 20 tablet; Refills: 0, sp4 Product Selection Permitted Signatures: Debo Interiano RN RN lg3 Jessica Da Silva RN RN pf1 Avel Kelley MD MD sp4
--- NOTE | 2022-11-13 00:07 | ER ---
Nurse's Notes [facility] Name: Cathi Zaldivar Age: 42 yrs Sex: Female : 1980 Arrival Date: 11/12/2022 Time: 20:45 Bed DIS4 Private MD: Diagnosis: Cellulitis of face;Left periorbital cellulitis. Left artificial eye infection. Presentation: 11/12 22:13 Chief complaint: Patient states: left eye pain and swelling. Coronavirus screen: Client lg3 denies travel out of the [place] in the last 14 days. At this time, the client does not indicate any symptoms associated with coronavirus-19. Ebola Screen: No symptoms or risks identified at this time. Mechanism of Injury: No Mechanism of Injury. The patient denies any loss of vision. Initial Sepsis Screen: Does the patient meet any 2 criteria? No. Patient's initial sepsis screen is negative. Does the patient have a suspected source of infection? No. Patient's initial sepsis screen is negative. Risk Assessment: Do you want to hurt yourself or someone else? Patient reports no desire to harm self or others. Onset of symptoms is unknown. 22:13 Method Of Arrival: Ambulatory lg3 22:13 Acuity: JESSICA 4 lg3 Triage Assessment: 22:15 General: Appears in no apparent distress. comfortable, Behavior is calm, cooperative. lg3 Pain: Complains of pain in left eye. EENT: Lid(s) swelling noted to left eye. Neuro: No deficits noted. Grant Agitation-Sedation Scale (RASS): 0 - Alert and Calm Level of Consciousness is awake, alert, obeys commands, Oriented to person, place, time, situation. Cardiovascular: No deficits noted. Denies chest pain, shortness of breath, Capillary refill < 3 seconds Clubbing of nail beds is absent JVD is absent Patient's skin is warm and dry. Respiratory: No deficits noted. Airway is patent Respiratory effort is even, unlabored, Respiratory pattern is regular, symmetrical. GI: No deficits noted. No signs and/or symptoms were reported involving the gastrointestinal system. : No deficits noted. No signs and/or symptoms were reported regarding the genitourinary system. Derm: No deficits noted. No signs and/or symptoms reported regarding the dermatologic system. Skin is intact, is healthy with good turgor, Skin is dry, Skin is normal, Skin temperature is warm. Musculoskeletal: No deficits noted. Circulation, motion, and sensation intact. Range of motion: intact in all extremities, Swelling present in left eye. 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 - Irregular menses lg3 Historical: - Allergies: 22:15 ambien; lg3 22:15 Codeine; lg3 22:15 GUAIFENESIN; lg3 22:15 Lisinopril; lg3 22:15 Morphine; lg3 22:15 Nitrofurantoin Macrocrystal; lg3 22:15 PENICILLINS; lg3 22:15 Prolixin; lg3 22:15 zolpidem tartrate; lg3 - Home Meds: 22:15 Unable to obtain [Active]; lg3 - PMHx: 22:15 "mental problems"; cardiac arrest; CHF; chronic kidney disease; cyclic vomiting lg3 syndrome; Diabetes - NIDDM; Dialysis; m-w-f; ENCEPHALOPATHY; Gastroparesis; Hypertension; ibs; liver failure; PERIPHERAL NEUROPATHY; pseudo aneurysm R groin; Seizures; - PSHx: 22:15 section; dialysis catheter R chest wall; eye removed; lg3 - Immunization history:: Adult Immunizations up to date, Client reports having NOT received the Covid vaccine. Flu vaccine is up to date. - Social history:: Smoking status: Patient denies any tobacco usage or history of. Patient/guardian denies using alcohol, street drugs. - Family history:: not pertinent. Screenin/26 00:25 [facility] ED Fall Risk Assessment (Adult) History of falling in the last 3 months, pf1 including since admission No falls in past 3 months (0 pts) Confusion or Disorientation No (0 pts) Intoxicated or Sedated No (0 pts) Impaired Gait No (0 pts) Mobility Assist Device Used No (0 pt) Altered Elimination No (0 pt) Score/Fall Risk Level 0 - 2 = Low Risk Oriented to surroundings, Maintained a safe environment, Educated pt \\T\\ family on fall prevention, incl call for assistance when getting out of bed, Assessed \\T\\ reinforced patient's understanding of fall precautions, Provided non-skid footwear, Hourly rounding (assess needs \\T\\ fall precautionary measures) done, Used ambulatory aids as needed (educated on \\T\\ assisted with), Used gait belt as appropriate. 00:25 Abuse screen: Denies threats or abuse. Nutritional screening: No deficits noted. pf1 Tuberculosis screening: No symptoms or risk factors identified. Assessment: 11/12 22:20 General: Appears in no apparent distress. comfortable, well groomed, well developed, pf1 Behavior is calm, cooperative, appropriate for age, quiet. 22:20 Pain: Complains of pain in left eye Pain currently is 7 out of 10 on a pain scale. pf1 Neuro: No deficits noted. Level of Consciousness is awake, alert, obeys commands, Oriented to person, place, time, situation. Cardiovascular: No deficits noted. Capillary refill < 3 seconds Patient's skin is warm and dry. Respiratory: No deficits noted. Respiratory: Airway is patent Trachea midline Respiratory effort is even, unlabored, Respiratory pattern is regular, symmetrical. GI: No deficits noted. No signs and/or symptoms were reported involving the gastrointestinal system. : No deficits noted. No signs and/or symptoms were reported regarding the genitourinary system. EENT: Eyes patient removed artificial left eye. Reports pain in left eye with swelling. Derm: Reports pain that is 7 out of 10 on a pain scale. 23:30 Reassessment: Patient appears in no apparent distress at this time. Patient and/or pf1 family updated on plan of care and expected duration. Pain level reassessed. Patient states symptoms have improved. Vital Signs: 22:13 BP 137 / 84; Pulse 76; Resp 17 S; Temp 98.1(O); Pulse Ox 98% on R/A; Weight 75.75 kg lg3 (R); Height 5 ft. 1 in. (R); 11/13 00:00 BP 135 / 79; Pulse 79; Resp 16; Pulse Ox 99% ; Pain 4/10; pf1 11/12 22:13 Body Mass Index 31.55 (75.75 kg, 154.94 cm) lg3 11/13 00:00 Pain Scale: Adult pf1 ED Course: 11/12 21:00 Patient arrived in ED. ts1 21:57 Avel Kelley MD is Attending Physician. sp4 22:15 Triage completed. lg3 22:15 Arm band placed on right wrist. lg3 22:20 Patient has correct armband on for positive identification. pf1 11/13 00:30 No provider procedures requiring assistance completed. pf1 00:30 Patient did not have IV access during this emergency room visit. pf1 Administered Medications: 11/12 22:50 Drug: Cephalexin PO 500 mg Route: PO; pf1 23:50 Follow up: Response: No adverse reaction pf1 22:50 Drug: Trimethoprim-Sulfamethoxazole PO (160 mg-800 mg (DS) 1 tablet Route: PO; pf1 23:50 Follow up: Response: No adverse reaction pf1 22:50 Drug: traMADol PO 100 mg Route: PO; pf1 23:50 Follow up: Response: No adverse reaction; Marked relief of symptoms; Pain is decreased; pf1 RASS: Alert and Calm (0) 22:50 Drug: Ondansetron PO 4 mg Route: PO; pf1 23:50 Follow up: Response: No adverse reaction; Marked relief of symptoms pf1 Medication: 11/13 00:30 VIS not applicable for this client. pf1 Outcome: 00:06 Discharge ordered by . sp4 00:15 Discharged to home ambulatory, with family. pf1 00:15 Condition: improved pf1 00:15 Discharge instructions given to patient, Instructed on discharge instructions, follow up and referral plans. Demonstrated understanding of instructions, follow-up care, medications, Prescriptions given X 3. 00:37 Patient left the ED. pf1 Signatures: Debo Interiano RN RN lg3 Jessica Da Silva RN RN pf1 Avel Kelley MD MD sp4 Trena Regalado PAS PAS ts1
[2022-11-13 00:42] VITALS: BP 137/84; TEMP 98.1; O2SAT 98
== END 2022-11-13 00:37 | disposition home or self-care (01) ==
LOC: ER 20:45
DX: L03.213 Periorbital cellulitis (principal); Z88.0 Allergy status to penicillin; Z88.5 Allergy status to narcotic agent; Z88.8 Allergy status to other drugs, medicaments and biological substances
CPT/HCPCS: 99283; Q0162

== ENCOUNTER 2022-11-30 21:24 | Emergency (ER) | payer MEDICARE, OTHER ==
[2022-11-30] MEDS ORDERED: METOCLOPRAMIDE 10 MG/2mL INJ ONE (22:10)
[2022-11-30] MEDS ORDERED: DICYCLOMINE HCL 20 MG/2 ML AMP IM ONE (22:11)
[2022-11-30] MEDS ORDERED: DIPHENHYDRAMINE 50 MG/ML VIAL ONE (22:11)
--- OUTSIDE RECORDS SUMMARY | 2022-11-30 22:47 | XMS REPORT | Continuity of Care Document ---
:1980 Author Organization [facility] t Address [address] [facility] [address] [place] [address] Care Team Providers Name Role Phone SHARPLESS Primary Care Physician Unavailable Sanya Attending Clinician Unavailable Nereida_Yared Attending Clinician Unavailable Peg Attending Clinician Unavailable RAJ WEST Attending Clinician Unavailable Jose Miguel Morin DO Attending Clinician Rosy BURNS, Brooke Ricci Attending Clinician [phone] Seth HOGUEC, Bessie Parks Attending Clinician Forrest Cruz Attending Clinician Unavailable VladimirMelany chang Attending Clinician Pat BURNS, Sivan Brand Attending Clinician Isra BURNS, Rachel Lew Attending Clinician [phone] Robe BURNS, Holden Elmore Attending Clinician Magaly BURNS, Shanda Higuera Attending Clinician Endy BURNS, Aurelio Attending Clinician Alesia Dodd Attending Clinician Joe BURNS, Mando Raphael Attending Clinician [phone] Jose Carlos BURNS, Veto Vincent Attending Clinician Pati BURNS, Juwan Attending Clinician Doc BURNS, Sofi Juárez Attending Clinician [phone] Gayle Jones RN Attending Clinician Unavailable Luciana BURNS, Frankie Baig Attending Clinician Chandler Silverman Attending Clinician MD RACHEL BRASHER Attending Clinician Unavailable MD SHANDA SHAHID Attending Clinician Unavailable Adelita SAPP, Leah Attending Clinician Unavailable Anand_Sj Attending Clinician Unavailable Tam MAYS, Maria M Attending Clinician Unavailable Anila Boles MA Attending Clinician Unavailable Tom Barber MD Attending Clinician Marilu Koch MD Attending Clinician Sukhjinder Medina MD Attending Clinician Hanane Hernandes Attending Clinician MD JUWAN YOU Attending Clinician Unavailable Elodia Coombs RN Attending Clinician Unavailable Doctor Unassigned, [place] Attending Clinician Unavailable MONA BHAT Attending Clinician Unavailable Jose MAYS, Missy Attending Clinician Unavailable Jimena Easton DO Attending Clinician Eze Dias MD Attending Clinician Obed Gray MD Attending Clinician MONISHA BAJWA Attending Clinician Unavailable Monisha Bajwa Attending Clinician Alexandr Diane MD Attending Clinician OZ KIMBLE.H. Attending Clinician Unavailable HUI WRIGHT Attending Clinician Unavailable Hui Wright Attending Clinician JOSE LUIS GONZALEZ Attending Clinician Unavailable Lamin BURNS, Oz K.H. Attending Clinician Jose Luis Gonzalez MD Attending Clinician Earl Sanchez DO Attending Clinician DEJA CLEANING Attending Clinician Unavailable Deja Cleaning DPM Attending Clinician [phone] Pc, Adc Echo Room 1 - Attending [...] Arun Espitia MD, Victor J Admitting Clinician [phone] HUI WRIGHT Admitting Clinician Unavailable Hui Wright Admitting Clinician Rei Waldron Admitting Clinician Unavailable MOISE BHAKTA Admitting Clinician Unavailable Danae Cha Admitting Clinician Joe Juárez Admitting Clinician Payers Payer Name Policy Type Policy Number Effective Date Expiration Date S karla MEDICARE PART A AND [id number] 2014 2021 B 00:00:00 00:00:00 [employer] [id number] 2020 00:00:00 MEDICARE PART A \\T\\ [id number] 2014 B 00:00:00 MEDICAID OF [place] [id number] 2020 00:00:[address] [employer] [id number] 2021 (MEDICARE 00:00:00 REPLACEMENT HMO) MEDICARE A B [id number] 2014 00:00:00 [place]ICAID [place] [id number] 2016 00:00:00 Problems Condition Condition Condition Status Onset Resolution Last Treating Co mments Source Name Details Category Date Date Treatment Clinician Date AVF AVF Disease Active Univers (arteriove (arteriove 03-19 it y of nous nous 00:00: [place] fistula) fistula) 00 Medica l Branch GASTROPARE GASTROPAR Diagnosis Active 2021-02-10 Memoria HELENA/IBS-D ESISI/IBS- 7-16 21:41:00 l /ANEMIA D/ANEMIA 00:00: [place] Active 00 01/03/2021 [facility] End stage End stage Disease Active [place] [...] syndrome syndrome 00:00: (IBS) (IBS) 00 NEW NEW Diagnosis Active 2020-12-24 Mem oria PATIENT GI PATIENT GI - 10:39:00 l CONSULT CONSULT 00:00: Vin REFRACTORY REFRACTORY 00 GASTRO GASTRO Active 10/14/2020 [facility] Malfunctio Malfunctio Disease Active Overview : Univers n of n of 6-03 Formattin ity of arterioven arterioven 00:00: g of this [place] ous ous 00 note Medical dialysis dialysis might be Bran ch fistula, fistula, different initial initial from the encounter encounter original. Added automatic ally from request for surgery [id number] Candidiasi Candidiasi Disease Active U nivers s of vulva s of vulva 2-18 it y of and vagina [place] Screening Screening Disease Active Uni vers for breast for breast 2-18 it y of cancer cancer 00:00: [place] 00 Medical Branch NEW NEW Diagnosis Active 2018-07-26 Mem oria EVALUATION EVALUATION 07-12 09:39:00 l Active 00:00: Vin 07/12/2018 [facility] Pyogenic Pyogenic Disease Active 2017-06 Overview: Un lori granuloma granuloma 0-17 Formattin i ty of of of 00:00: g of this [place] conjunctiv conjunctiv 00 note Me dical a, right a, right might be Bran ch different from the original. Added automatic ally from request for surgery [id number] Right eye Right eye Disease Active Overview: Univers affected affected 02-22 Formattin ity of by by 00:00: g of this [place] proliferat proliferat 00 note Me dical montse montse might be Branch diabetic diabetic different retinopath retinopath from the y with y with original. 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 Eviscerat ion OS on 8 - Dr. 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 Added automatic ally from request for surgery [id number] ESRD (end ESRD (end Disease Active Overview: Univers stage stage 6-12 Formattin ity of renal renal 00:00: g of this [place] disease) disease) 00 note Medica l on on might be Branch dialysis dialysis different from the original. Added automatic ally from request for surgery [id number] Diabetes Diabetes Disease Active Metho di mellitus [...] Added automatic ally from request for surgery [id number] Neovascula Neovascula Disease Active U nivers r r 1-18 ity of glaucoma, glaucoma, 00:[place] left [place] left eye 00 Medica l Branch Increased Increased Disease Active Uni vers intraocula intraocula 1-18 it y of r pressure r pressure [place] Fall Fall Disease Active 2016-06 Univers 0-13 ity of 00:00: [place] Medical [facility] Pneumonia Pneumonia Disease Active 2016-06 Uni vers 0-11 ity of 00:00: [place] [address] Medical Branch Diabetes Diabetes Disease Active 2016-06 Overview: Un lori mellitus mellitus 0-05 Formattin ity of 00:00: g of this [place] 00 note Medical might be Branch different from the original. Added automatic ally from request for surgery [id number] Pseudotumo Pseudotumo Disease Active U nivers r cerebri r cerebri 9-25 ity of 00:00: [place] [facility] Branch SANJUANA (acute SANJUANA (acute Disease Recurre [facility] kidney kidney nce 7-16 [facility] injury) injury) 00:00: [facility] 00 Center Ulcer of Ulcer of Disease Recurre [facility] toe of toe of nce 7-16 [facility] left foot left foot 00:00: [facility] 00 Center Hyperglyce Hyperglyce Disease Recurre [facility] 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 nce 7-16 Pati kes type 2 type 2 00:00: Medical diabetes diabetes 00 Center mellitus mellitus Gastropare Gastropare Disease Recurre [facility] sis due to sis due to nce 7-16 Pati kes DM DM 00:00: Medical [...] 7-16 Pati kes 00:00: Medical 00 Center Cyclic Cyclic Disease Active [facility] vomiting vomiting 7-16 [facility] syndrome syndrome 00:00: Medica l 00 Center Anxiety Anxiety Disease Active [facility] 7[facility]16 [facility] 00[facility]: Medical 00 Center Hypertensi Hypertensi Disease Active [facility] ve ve 7-16 [facility] emergency emergency 00:00: [facility] 00 Center ACUTE RESP ACUTE Diagnosis Active 2016-09-09 Memmarin FAILURE RESP 2- 09:11:00 l FAILURE 00:00: Vin Active 00 07/23/2016 [facility] CONGESTION CONGESTIO Diagnosis Active 2016-07-24 Margi AMD N AMD 2- 01:49:00 l DIARRHEA DIARRHEA 00:00: Jake gonzalez Active 00 07/23/2016 [facility] SOB/SWELLI SOB/SWELL Diagnosis Active 2015-062016-06-10 Memmarin NG ING Active 08-11 15:48:00 l 06/10/2016 00:00: Jake gonzalez [address] CHF/RENAL CHF/RENAL Diagnosis Active 2015-062016-06-24 Memoria DISEASE DISEASE 08-11 15:35:00 l Active 00:00: Vin 06/10/2016 00 [facility] Congestive Congestive Disease Active 2015-06 U T heart heart 08-11 Health failure failure 00:00: (CHF) (CHF) 00 Obesity Obesity Disease Active 2015-06 Univers (BMI (BMI 0-12 ity of 30-39.9) 30-39.9) 00:00: [place] [address] Medical Branch Hyperosmol Hyperosmol Disease Active 2015-06 U jessicaers ar ar 0-12 ity of non-ketoti non-ketoti 00:[place] c [place] in c state in 00 Me dical patient patient Branch with 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 Hyperglyce Hyperglyce Disease Active 2015-06 U jessicaers maryam maryam 0-11 ity of 00:00: [place] [address] Medical Branch Diabetic Diabetic Disease Active Unive rs ulcer of ulcer of 5-07 ity of both feet both feet 00:[place] associated associated 00 Me dical with type with type Bran ch 2 diabetes 2 diabetes mellitus mellitus SANJUANA (acute SANJUANA (acute Disease Active U jessicaers kidney kidney 5-07 ity of injury) injury) 00:00: [place] [address] Medical Branch Depression Depression Disease Active U nivers 5-07 ity of 00:00: [place] [address] Medical Branch Bipolar 1 Bipolar 1 Disease Active Uni vers disorder disorder 5-07 ity of 00:00: [place] [address] Medical Branch Suicidal Suicidal Disease Active Unive rs ideation ideation 5-05 ity of 00:00: [place] [address] Medical Branch 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, 1.5, 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 Medical Branch Hematuria, Hematuria, Disease Active U viviana undiagnose undiagnose 2-16 it y of d cause d cause 00:00: [place] 00 Medical Branch Cystitis Cystitis Disease Active [...] 00:00: [place] cancer in cancer in 00 [facility] female female Branch Family Family Disease Active 2014-06 Univers history of history of 1-13 it y of ovarian ovarian 00:00: [place] cancer cancer 00 Medical Branch Galactorrh Galactorrh Disease Active 2014-06 U viviana ea ea 1-13 ity of 00:00: [place] [address] Medical Branch History of History of Disease Active 2014-06 U viviana tubal tubal 1-13 ity of ligation ligation 00:00: [place] [address] Medical Branch Excessive Excessive Disease Active 2014-06 Uni vers or or 1-13 ity of frequent frequent 00:00: [place] menstruati menstruati 00 Me dical on on Branch Tobacco Tobacco Disease Active 2014-06 Univers use use 1-13 ity of disorder disorder 00:00: [place] [address] Medical Branch ABDOMINAL ABDOMINAL Diagnosis Active 2014-06-26 Memoria PAIN, PAIN, 06 05:44:00 l SEIZURES SEIZURES 00:00: Jake gonzalez Active 00 06/26/2013 [facility] ABD PAIN ABD PAIN Diagnosis Active 2012-062013-04-19 Memoria Active 0 21:51:00 l 04/14/2013 19:00: Jake gonzalez [facility] GASTROPERI GASTROPER Diagnosis Active 2012-09-13 Memoria SIS DAISY 2-12 15:17:00 l Active 00:00: Vin 08/02/2012 00 [facility] ABDOMINAL ABDOMINAL Diagnosis Active 2012-03-14 Memoria PAIN PAIN 03-14 16:56:00 l Active 14:00: Vin 03/14/2012 00 [facility] NAUSEA, NAUSEA, Diagnosis Active 2012-03-14 Memoria VOMITING VOMITING 03-14 13:25:00 l Active 08:00: [place] 03/14/2012 00 [facility] N/V N/V Diagnosis Active 2011-12-08 Mem oria INABILITY INABILITY 11-27 11:14:00 l TO TO 00:00: Vin TOLERATE TOLERATE 00 PO PO Active 11/28/2011 [facility] VOMITTING VOMITTING Diagnosis Active 2011-11-28 Memoria Active 11-27 16:28:00 l 11/28/2011 00:00: Jake n [address] VOMITTING, VOMITTING Diagnosis Active 2011-09-18 Memoria HIGH BLOOD , HIGH 09-17 09:45:00 l SUGAR BLOOD 00:00: [place] SUGAR 00 Active 09/18/2011 [facility] Methicilli Methicill Problem Active 2021-01-31 Margi n in 08-31 22:29:25 l resistant resistant 00:00: Herm naeem Staphyloco Staphyloco 00 ccus ccus aureus aureus (organism) (organism) Active 09/01/2011 Problem 01/31/2021 09/01/11 - Elbow wound
Problem added by Discern Expert. [facility] MRSA MRSA Problem Active 2012-03-16 Memor ia Active 08-31 09:11:30 l 09/01/2011 00:00: Jake n Problem 00 03/16/2012 <sup>1</oliveros p>09/01/11 - Elbow wound
<sup>2< /sup>Probl em added by Discern Expert. [facility] VOMITING, VOMITING, Diagnosis Active 2011-09-01 Memoria BLOOD BLOOD 08-30 03:19:00 l SUGAR SUGAR 00:00: Vin READINGS READINGS 00 HIGH HIGH Active 08/31/2011 [facility] ELBOW ELBOW Diagnosis Active 2011-09-10 Mem oria ABSCESS/HY ABSCESS/HY 08-30 16:26:00 l PERGLYCEMI PERGLYCEMI 00:00: Tyrel canales A A Active 00 08/31/2011 [facility] Hypokalemi Hypokalem Problem Active 2012-03-16 Memoria a ia Active 3- 09:11:30 l 08/23/2011 00:00: Jake gonzalez Problem 00 03/16/2012 [facility] DKA DKA Diagnosis Active 2011-08-24 Mem oria Active 11:27:00 l 08/19/2011 00:00: Jake gonzalez [address] VOMITING VOMITING Diagnosis Active 2011-08-19 Memoria Active 16:21:00 l 08/19/2011 00:00: Jake gonzalez [address] Final: Final: Problem 2016-08-02 Mem oria Acute Acute 02:46:22 l respirator respirator He rmann y failure, y failure, unspecifie unspecifie d whether d whether with with hypoxia or hypoxia or hypercapni hypercapni a a 08/02/2016 [facility] Hypoglycem Hypoglyce Problem Inactiv 2012-03-16 Memoria ia maryam e 09:11:30 l Inactive Vin Problem 03/16/2012 [facility] Hypoglycem Hypoglyce Problem Inactiv 2013-04-22 Memoria ia maryam e 04:46:33 l (disorder) (disorder) He rmann Inactive Problem 04/22/2013 [facility] Gastropare Gastropar Problem Resolve 2021-01-31 Memoria sis esis d 22:29:25 l (disorder) (disorder) He rmann Resolved Problem 01/31/2021 [facility] Hypertensi Hypertens Problem Resolve 2021-01-31 Memoria ve montse d 22:29:25 l disorder, disorder, Herm naeem systemic systemic arterial arterial (disorder) (disorder) Resolved Problem 01/31/2021 [facility] Psychiatri Psychiatr Problem Resolve 2021-01-31 Memoria c ic d 22:29:25 l behavioral behavioral He rmann disability disability (finding) (finding) Resolved Problem 01/31/2021 [facility] Seizure Seizure Problem Resolve 2021-01-31 M emoria (finding) (finding) d 22:29:25 l Resolved [place] Problem 01/31/2021 [facility] Hypertensi Hypertens Problem Active 2012-03-16 Memoria on ion Active 09:11:30 l Problem [place] 03/16/2012 [facility] Hypomagnes Hypomagne Problem Active 2013-04-22 Memoria emia semia 04:46:33 l Active Vin Problem 04/22/2013 [facility] Nausea and Nausea Problem Active 2012-03-16 Memoria vomiting and 09:11:30 l vomiting Vin Active Problem 03/16/2012 [facility] ENCNTR FOR ENCNTR Diagnosis Active 2020-12-24 Memoria GENERAL FOR 10:39:00 l ADULT GENERAL [place] MEDICAL ADULT EXAM W/ MEDICAL EXAM W/ Active [facility] DMI DMI Diagnosis Active 2011-08-24 Mem oria KETOACD KETOACD 11:27:00 l UNCONTROLD UNCONTROLD He rmann Active [facility] OTHER OTHER Diagnosis Active 2011-09-10 Mem oria GENERAL GENERAL 16:26:00 l SYMPTOMS SYMPTOMS Jake n Active [facility] HEART HEART Diagnosis Active 2016-06-24 Me moria FAILURE, FAILURE, 15:35:00 l UNSPECIFIE UNSPECIFIE He rmann D D Active [facility] ACUTE ACUTE Diagnosis Active 2016-09-09 Mem oria RESPIRATOR RESPIRATOR 09:11:00 l Y FAILURE, Y FAILURE, He rmann UNSP W UNSP W HYPOXI HYPOXI Active [facility] Nausea and Nausea Problem Resolve 2021-01-31 2021-01-31 Memoria vomiting and d 6-10 22:29:25 22:29:25 l (disorder) vomiting 00:00: Herm neaem (disorder) 00 Resolved 11/29/2011 Problem 01/31/2021 [facility] Hypokalemi Hypokalem Problem Resolve 2021-01-31 2021-01-31 Memoria a ia d 3-04 22:29:25 22:29:25 l (disorder) (disorder) 00:00: He rmann Resolved 00 08/23/2011 Problem 01/31/2021 [facility] Disorder Disorder Problem Resolve 2021-01-31 2021-01-31 Memoria of of d 3-04 22:29:25 22:29:25 l magnesium magnesium 00:00: Herm naeem metabolism metabolism 00 (disorder) (disorder) Resolved 08/23/2011 Problem 01/31/2021 [facility] Hyperglyce Hyperglyc Problem Resolve 2021-01-31 2021-01-31 Memmarin live d 08-19 22:29:25 22:29:25 l (disorder) (disorder) 00:00: He rmann Resolved 00 08/20/2011 Problem 01/31/2021 [facility] Ketoacidos Ketoacido Problem Resolve 2021-01-31 2021-01-31 Margi is in sis in d 22:29:25 22:29:25 l diabetes diabetes 00:00: Jake gonzalez mellitus mellitus 00 (disorder) (disorder) Resolved 08/19/2011 Problem 01/31/2021 [facility] DKA DKA Problem Resolve 2013-04-22 2013-04-22 Margi (diabetic (diabetic d 04:46:33 04:46:33 l ketoacidos ketoacidos 00:00: Tyrel thompson) es) 00 Resolved 08/19/2011 Problem 04/22/2013 [facility] History of Past Illness Condition Condition Condition Status Onset Resolution Last Treating Co mments Source Name Details Category Date Date Treatment Clinician Date Discharge Discharge Problem 2014-06-28 2014-06-28 Blasmarin Diagnosis: Diagnosis: 06-26 16:34:37 16:34:37 l Gastropare Gastropare 06:00: Tyrel canales sis sis 00 06/26/2014 5 [facility] Hyperglyce Hyperglyc Problem Inactiv 2012-03-16 2012-03-16 Margi francisco maria t e 08-19 09:11:30 09:11:30 l Inactive 00:00: Vin 08/20/2011 00 Problem 03/16/2012 [facility] Allergies, Adverse Reactions, Alerts Allergy Allergy [...] Allergy Comments) 01-03 [facility] 00 [place] Guaifene Propensi Active Other - See numbness Univers sin ty to comments 01-03 ity of adverse 00:00: [place] reaction 00 Medical s Branch GUAIFENE DRUG Active Other-Cmnt Univ ers SIN INGREDI 01-03 ity of 00:00: [place] [facility] Nitrofur Allergy Active Anaphylaxis Other [place] antoin [...] 00 Medical Branch penicill Drug Active [facility] lisinopr Drug Active [facility] Ambien Drug Active [facility] Prolixin Drug Active [facility] penicill Drug Active [facility] lisinopr Drug Active [facility] Ambien Drug Active [facility] Prolixin Drug Active [facility] Tape Other Active [facility] penicill Drug Active [facility] lisinopr Drug Active [facility] Ambien Drug Active [facility] Prolixin Drug Active [facility] codeine Drug Active [facility] penicill Drug Active [facility] lisinopr Drug Active [facility] Ambien Drug Active [facility] Prolixin Drug Active [facility] codeine Drug Active [facility] penicill Drug Active [facility] lisinopr Drug Active [facility] Ambien Drug Active [facility] Prolixin Drug Active [facility] penicill penicill Active Memori a ins ins l [place] codeine codeine Active Memoria l [place] morphine morphine Active Memori a l Vin lisinopr lisinopr Active Memori a il il l Vin Adhesive Adhesive Active Memori a Tape Tape l [place] Ambien Ambien Active Memoria l [place] Prolex Prolex Active Memoria DM DM l [place] penicill Drug Active [facility] lisinopr Drug Active [facility] Ambien Drug Active [facility] Prolixin Drug Active [facility] penicill Drug Active [facility] lisinopr Drug Active . [facility] Ambien Drug Active [facility] Prolixin Drug Active [facility] Social History Social Habit Start Date Stop Date Quantity Comments Source Gender identity [facility] History of tobacco Cigarette Smoker [facility] Exposure to Yes [facility] SARS-CoV-2 (event) Hospit al History of Social 2022-08-25 2022-08-[address] function 00:00:00 00:00:00 Hospital Alcohol intake 2021-06-18 2021-06-18 Ex-drinker [facility] 00:00:00 00:00:00 (finding) Hospital Cigarettes smoked 2021-05-14 2021-05-14 [facility] ([facility] per 00:00:00 00:00:00 Hospita l day) - Reported Cigarette 2021-05-14 2021-05-14 [facility] pack-years 00:00:00 00:00:00 Hospital Tobacco use and 2021-05-14 2021-05-14 Smokeless tobacco [facility] exposure 00:00:00 00:00:00 non-user Hospital Social History 2020-12-24 2020-12-24 [facility] fatou 15:49:37 15:49:37 Tobacco Comment 2017-11-12 2017-11-12 5 cigarettes per [facility] 00:00:00 00:00:00 day Hospital Sex Assigned At [birth year] [facility] 00:00:00 00:00:00 Hospital Smoking Status Start Date Stop Date Source Smokes tobacco daily 2021-05-14 [facility] 2020-06-27 00:00:00 2020-06-27 00:00:00 [facility] Medications Ordered Filled Start Stop Current Ordering Indication Dosage Frequency Signature Comments Components Source Medication Medication Date Date Medication? Clinician (SIG) Name Name glipiZIDE 2022-0 Yes 5mg Take 5 mg Met [facility] (GLUCOTROL) 1-[address] 5 MG tablet 13:02: daily. Hosp jo-ann 39 l calcium 2021-0 Yes 667mg Q.[id number] Take 667 [facility] acetate 1-[id number] (PHOSLO) 13:02: 3D mouth [...] 39 nightly. l calcium 2021-0 Yes 1334mg Q.[id number] Take 1,334 [facility] acetate,domingo 1-18 [id number] mg by s t sphat bind, 13:02: 3D mouth 3 Hos whit (Phoslyra) 39 (three) l 667 mg (169 times a mg day. calcium)/5 mL solution cyproheptad 2021-0 Yes 4mg Q.[id number] Take 4 mg Methodi ine 1-18 [id number] mouth [address] (PERIACTIN) 13:02: 3D (three) Hos whit 4 mg tablet 39 times a l day as needed for allergies. buPROPion 0 Yes 300mg QD Take 300 Met hodi XL 1-[address] (WELLBUTRIN 13:02: mouth Hospi ta XL) 300 MG 39 daily. l 24 hr tablet ascorbic 2021-0 Yes 500mg Q.[id number] Take 500 [facility] acid, 1-[id number] vitamin C, 13:02: 3D mouth 3 Hosp jo-ann (ascorbic 39 (three) l acid with times a sia hips) day. 500 MG tablet clonAZEPAM 2021-0 Yes .5mg Take 0.5 Met hodi (KlonoPIN) 1-[address] 0.5 MG 13:02: mouth as Hospita tablet 39 needed for l anxiety. calcium 2021-0 Yes 1334mg Q.[id number] Take 1,334 [facility] acetate,domingo 1-18 [id number] mg by s t sphat bind, 13:02: 3D mouth 3 Hos whit (Phoslyra) 39 (three) l 667 mg (169 times a mg day. calcium)/5 mL solution cyproheptad 2021-0 Yes 4mg Q.[id number] Take 4 mg Methodi ine 1-18 [id number] mouth [address] (PERIACTIN) 13:02: 3D (three) Hos whit 4 mg tablet 39 times a l day as needed for allergies. buPROPion 2022-0 Yes 300mg QD Take 300 Met hodi XL 1-[address] (WELLBUTRIN 13:02: mouth Hospi ta XL) 300 MG 39 daily. l 24 hr tablet ascorbic 2022-0 Yes 500mg Q.[id number] Take 500 Methodi acid, 1-[id number] vitamin C, 13:02: 3D [...] jo-ann 39 l calcium 2021-0 Yes 667mg Q.[id number] Take 667 [facility] acetate 1-[id number] (PHOSLO) 13:02: 3D mouth [...] 39 nightly. l calcium 0 Yes 1334mg Q.[id number] Take 1,334 Methodi acetate,domingo 1-18 [id number] mg by s t sphat bind, 13:02: 3D mouth 3 Hos whit (Phoslyra) 39 (three) l 667 mg (169 times a mg day. calcium)/5 mL solution cyproheptad 0 Yes 4mg Q.[id number] Take 4 mg Methodi ine 1-[id number] mouth [address] (PERIACTIN) 13:02: 3D (three) Hos whit 4 mg tablet 39 times a l day as needed for allergies. buPROPion 0 Yes 300mg QD Take 300 Met hodi XL 1-[address] (WELLBUTRIN 13:02: mouth Hospi ta XL) 300 MG 39 daily. l 24 hr tablet ascorbic 202-0 Yes 500mg Q.91451127 Take 500 [facility] acid, 1-[id number] vitamin C, 13:02: 3D [...] jo-ann 39 l calcium 202-0 Yes 667mg Q.91602525 Take 667 [facility] acetate 1-[id number] (PHOSLO) 13:02: 3D mouth [...] 39 nightly. l calcium 0 Yes 1334mg Q.62352214 Take 1,334 [facility] acetate,domingo 1-18 [id number] mg by s t sphat bind, 13:02: 3D mouth 3 Hos whit (Phoslyra) 39 (three) l 667 mg (169 times a mg day. calcium)/5 mL solution cyproheptad 0 Yes 4mg Q.25019883 Take 4 mg [facility] ine 1-18 [id number] by mouth [address] (PERIACTIN) 13:02: 3D (three) Hos whit 4 mg tablet 39 times a l day as needed for allergies. buPROPion 0 Yes 300mg QD Take 300 Met hodi XL 1-[address] (WELLBUTRIN 13:02: mouth Hospi ta XL) 300 MG 39 daily. l 24 hr tablet ascorbic 2021-0 Yes 500mg Q.61490509 Take 500 [facility] acid, 1-[address] vitamin C, 13:02: 3D [...] jo-ann 39 l calcium 2021-0 Yes 667mg Q.93521941 Take 667 [facility] acetate 1-[id number] (PHOSLO) 13:02: 3D mouth [...] 39 nightly. l calcium 2021-0 Yes 1334mg Q.15678197 Take 1,334 [facility] acetate,domingo 1-18 [id number] mg by s t sphat bind, 13:02: 3D mouth 3 Hos whit (Phoslyra) 39 (three) l 667 mg (169 times a mg day. calcium)/5 mL solution cyproheptad 0 Yes 4mg Q.83559692 Take 4 mg [facility] ine -18 [id number] by mouth [address] (PERIACTIN) 13:02: 3D (three) Hos whit 4 mg tablet 39 times a l day as needed for allergies. buPROPion 0 Yes 300mg QD Take 300 Met hodi XL 1-[address] (WELLBUTRIN 13:02: mouth Hospi ta XL) 300 MG 39 daily. l 24 hr tablet ascorbic 2021-0 Yes 500mg Q.46703843 Take 500 [facility] acid, 1-[id number] vitamin C, 13:02: 3D [...] jo-ann 39 l calcium 2021-0 Yes 667mg Q.57548602 Take 667 [facility] acetate 1-[address] (PHOSLO) 13:02: 3D mouth [...] 39 nightly. l calcium 2021-0 Yes 1334mg Q.56384870 Take 1,334 [facility] acetate,domingo 1-18 [id number] mg by s t sphat bind, 13:02: 3D mouth 3 Hos whit (Phoslyra) 39 (three) l 667 mg (169 times a mg day. calcium)/5 mL solution cyproheptad 0 Yes 4mg Q.33677357 Take 4 mg [facility] ine 1-18 [id number] by mouth [address] (PERIACTIN) 13:02: 3D (three) Hos whit 4 mg tablet 39 times a l day as needed for allergies. buPROPion 0 Yes 300mg QD Take 300 Met hodi XL 1-[address] (WELLBUTRIN 13:02: mouth Hospi ta XL) 300 MG 39 daily. l 24 hr tablet ascorbic 2021-0 Yes 500mg Q.65988342 Take 500 [facility] acid, 1-[address] vitamin C, 13:02: 3D [...] jo-ann 39 l calcium 2021-0 Yes 667mg Q.14825881 Take 667 [facility] acetate 1-[address] (PHOSLO) 13:02: 3D mouth [...] 39 nightly. l calcium 2021-0 Yes 1334mg Q.06571828 Take 1,334 [facility] acetate,domingo 1-18 [id number] mg by s t sphat bind, 13:02: 3D mouth 3 Hos whit (Phoslyra) 39 (three) l 667 mg (169 times a mg day. calcium)/5 mL solution cyproheptad 2021-0 Yes 4mg Q.18732501 Take 4 mg [facility] ine 1-18 [id number] [address] mouth [address] (PERIACTIN) 13:02: 3D (three) Hos whit 4 mg tablet 39 times a l day as needed for allergies. buPROPion 2021-0 Yes 300mg QD Take 300 Met hodi XL 1-[address] (WELLBUTRIN 13:02: mouth Hospi ta XL) 300 MG 39 daily. l 24 hr tablet ascorbic 2021-0 Yes 500mg Q.66072576 Take 500 [facility] acid, 1-[id number] vitamin C, 13:02: 3D [...] jo-ann 39 l calcium 2021-0 Yes 667mg Q.65670854 Take 667 [facility] acetate 1-[id number] (PHOSLO) 13:02: 3D mouth [...] 39 nightly. l calcium 2-0 Yes 1334mg Q.42302835 Take 1,334 [facility] acetate,domingo 1-18 [id number] mg by s t sphat bind, 13:02: 3D mouth 3 Hos whit (Phoslyra) 39 (three) l 667 mg (169 times a mg day. calcium)/5 mL solution cyproheptad 2021-0 Yes 4mg Q.01650738 Take 4 mg [facility] ine 1-18 [id number] [address] mouth [address] (PERIACTIN) 13:02: 3D (three) Hos whit 4 mg tablet 39 times a l day as needed for allergies. buPROPion 2021-0 Yes 300mg QD Take 300 Met hodi XL 1-[address] (WELLBUTRIN 13:02: mouth Hospi ta XL) 300 MG 39 daily. l 24 hr tablet ascorbic 2021-0 Yes 500mg Q.86056426 Take 500 [facility] acid, 1-[address] vitamin C, 13:02: 3D [...] jo-ann 39 l calcium 2021-0 Yes 667mg Q.70459522 Take 667 [facility] acetate 1-[id number] (PHOSLO) 13:02: 3D mouth [...] 39 nightly. l calcium 2021-0 Yes 1334mg Q.60359290 Take 1,334 [facility] acetate,domingo 1-18 [id number] mg by s t sphat bind, 13:02: 3D mouth 3 Hos whit (Phoslyra) 39 (three) l 667 mg (169 times a mg day. calcium)/5 mL solution cyproheptad 2021-0 Yes 4mg Q.08463669 Take 4 mg [facility] ine 1-18 [id number] [address] mouth [address] (PERIACTIN) 13:02: 3D (three) Hos whit 4 mg tablet 39 times a l day as needed for allergies. buPROPion 2021-0 Yes 300mg QD Take 300 Met hodi XL 1-[address] (WELLBUTRIN 13:02: mouth Hospi ta XL) 300 MG 39 daily. l 24 hr tablet ascorbic 2021-0 Yes 500mg Q.87200010 Take 500 [facility] acid, 1-[id number] vitamin C, 13:02: 3D [...] jo-ann 39 l calcium 2021-0 Yes 667mg Q.53466452 Take 667 [facility] acetate 1-[id number] (PHOSLO) 13:02: 3D mouth [...] 39 nightly. l calcium 2021-0 Yes 1334mg Q.20072576 Take 1,334 [facility] acetate,domingo 1-18 [id number] mg by s t sphat bind, 13:02: 3D mouth 3 Hos whit (Phoslyra) 39 (three) l 667 mg (169 times a mg day. calcium)/5 mL solution cyproheptad 2021-0 Yes 4mg Q.[id number] Take 4 mg [facility] ine 1-18 [id number] by mouth [address] (PERIACTIN) 13:02: 3D (three) Hos whit 4 mg tablet 39 times a l day as needed for allergies. buPROPion 2021-0 Yes 300mg QD Take 300 Met hodi XL 1-[address] (WELLBUTRIN 13:02: mouth Hospi ta XL) 300 MG 39 daily. l 24 hr tablet ascorbic 2022-0 Yes 500mg Q.58022875 Take 500 [facility] acid, 1-[id number] vitamin C, 13:02: 3D [...] jo-ann 39 l calcium 2022-0 Yes 667mg Q.21501675 Take 667 [facility] acetate 1-[id number] (PHOSLO) 13:02: 3D mouth [...] 39 nightly. l calcium 2021-0 Yes 1334mg Q.31066188 Take 1,334 [facility] acetate,domingo 1-18 [id number] mg by s t sphat bind, 13:02: 3D mouth 3 Hos whit (Phoslyra) 39 (three) l 667 mg (169 times a mg day. calcium)/5 mL solution cyproheptad 2021-0 Yes 4mg Q.[id number] Take 4 mg [facility] ine 1-18 [id number] [address] mouth [address] (PERIACTIN) 13:02: 3D (three) Hos whit 4 mg tablet 39 times a l day as needed for allergies. buPROPion 2021-0 Yes 300mg QD Take 300 Met [facility]odi XL 1-[address] (WELLBUTRIN 13:02: mouth Hospi ta XL) 300 MG 39 daily. l 24 hr tablet ascorbic 2021-0 Yes 500mg Q.[id number] Take 500 [facility] acid, 1-[id number] vitamin C, 13:02: 3D [...] jo-ann 39 l calcium 2021-0 Yes 667mg Q.52134485 Take 667 [facility] acetate 1-[id number] (PHOSLO) 13:02: 3D mouth [...] 39 nightly. l calcium 0 Yes 1334mg Q.36513371 Take 1,334 [facility] acetate,domingo 1-18 [id number] mg by s t sphat bind, 13:02: 3D mouth 3 Hos whit (Phoslyra) 39 (three) l 667 mg (169 times a mg day. calcium)/5 mL solution cyproheptad 0 Yes 4mg Q.16108795 Take 4 mg [facility] ine 1-18 [id number] [address] mouth [address] (PERIACTIN) 13:02: 3D (three) Hos whit 4 mg tablet 39 times a l day as needed for allergies. buPROPion 0 Yes 300mg QD Take 300 Met [facility]odi XL 1-[address] (WELLBUTRIN 13:02: mouth Hospi ta XL) 300 MG 39 daily. l 24 hr tablet ascorbic 2021-0 Yes 500mg Q.[id number] Take 500 [facility] acid, 1-[id number] vitamin C, 13:02: 3D [...] jo-ann 39 l calcium 2021-0 Yes 667mg Q.57380503 Take 667 [facility] acetate 1-[id number] (PHOSLO) 13:02: 3D mouth [...] 39 nightly. l calcium 2021-0 Yes 1334mg Q.34625725 Take 1,334 [facility] acetate,domingo 1-18 [id number] mg by s t sphat bind, 13:02: 3D mouth 3 Hos whit (Phoslyra) 39 (three) l 667 mg (169 times a mg day. calcium)/5 mL solution cyproheptad 2021-0 Yes 4mg Q.[id number] Take 4 mg [facility] ine 1-18 [id number] [address] mouth [address] (PERIACTIN) 13:02: 3D (three) Hos whit 4 mg tablet 39 times a l day as needed for allergies. buPROPion 2021-0 Yes 300mg QD Take 300 Met hodi XL 1-[address] (WELLBUTRIN 13:02: mouth Hospi ta XL) 300 MG 39 daily. l 24 hr tablet ascorbic 2021-0 Yes 500mg Q.60891487 Take 500 [facility] acid, 1-[id number] vitamin C, 13:02: 3D [...] jo-ann 39 l calcium 2022-0 Yes 667mg Q.[id number] Take 667 [facility] acetate 1-[id number] (PHOSLO) 13:02: 3D mouth [...] 39 nightly. l calcium 2021-0 Yes 1334mg Q.89212130 Take 1,334 [facility] acetate,domingo 1-18 [id number] mg by s t sphat bind, 13:02: 3D mouth 3 Hos whit (Phoslyra) 39 (three) l 667 mg (169 times a mg day. calcium)/5 mL solution cyproheptad 0 Yes 4mg Q.[id number] Take 4 mg [facility] ine 1-18 [id number] [address] mouth [address] (PERIACTIN) 13:02: 3D (three) Hos whit 4 mg tablet 39 times a l day as needed for allergies. buPROPion 0 Yes 300mg QD Take 300 Met hodi XL 1-[address] (WELLBUTRIN 13:02: mouth Hospi ta XL) 300 MG 39 daily. l 24 hr tablet ascorbic 2021-0 Yes 500mg Q.54546702 Take 500 [facility] acid, 1-[id number] vitamin C, 13:02: 3D [...] jo-ann 39 l calcium 2021-0 Yes 667mg Q.89501175 Take 667 [facility] acetate 1-[id number] (PHOSLO) 13:02: 3D mouth [...] 39 nightly. l calcium 2021-0 Yes 1334mg Q.17301469 Take 1,334 [facility] acetate,domingo 1-18 [id number] mg by s t sphat bind, 13:02: 3D mouth 3 Hos whit (Phoslyra) 39 (three) l 667 mg (169 times a mg day. calcium)/5 mL solution cyproheptad 2022-0 Yes 4mg Q.[id number] Take 4 mg [facility] ine 1-18 [id number] [address] mouth [address] (PERIACTIN) 13:02: 3D (three) Hos whit 4 mg tablet 39 times a l day as needed for allergies. buPROPion 2022-0 Yes 300mg QD Take 300 Met hodi XL 1-[address] (WELLBUTRIN 13:02: mouth Hospi ta XL) 300 MG 39 daily. l 24 hr tablet ascorbic 2021-0 Yes 500mg Q.91926763 Take 500 [facility] acid, 1-[id number] vitamin C, 13:02: 3D [...] jo-ann 39 l calcium 2021-0 Yes 667mg Q.[id number] Take 667 [facility] acetate 1-[id number] (PHOSLO) 13:02: 3D mouth [...] 39 nightly. l calcium 2021-0 Yes 1334mg Q.71601940 Take 1,334 [facility] acetate,domingo 1-18 [id number] mg by s t sphat bind, 13:02: 3D mouth 3 Hos whit (Phoslyra) 39 (three) l 667 mg (169 times a mg day. calcium)/5 mL solution cyproheptad 2021-0 Yes 4mg Q.30090747 Take 4 mg [facility] ine 1-18 [id number] [address] mouth [address] (PERIACTIN) 13:02: 3D (three) Hos whit 4 mg tablet 39 times a l day as needed for allergies. buPROPion 202-0 Yes 300mg QD Take 300 Met hodi XL 1-[address] (WELLBUTRIN 13:02: mouth Hospi ta XL) 300 MG 39 daily. l 24 hr tablet ascorbic 2022-0 Yes 500mg Q.[id number] Take 500 [facility] acid, 1-[id number] vitamin C, 13:02: 3D [...] jo-ann 39 l calcium 2021-0 Yes 667mg Q.26749178 Take 667 [facility] acetate 1-[id number] (PHOSLO) 13:02: 3D mouth [...] 39 nightly. l calcium 2021-0 Yes 1334mg Q.[id number] Take 1,334 [facility] acetate,domingo 1-18 [id number] mg by s t sphat bind, 13:02: 3D mouth 3 Hos whit (Phoslyra) 39 (three) l 667 mg (169 times a mg day. calcium)/5 mL solution cyproheptad 2021-0 Yes 4mg Q.[id number] Take 4 mg [facility] ine 1-18 [id number] [address] mouth [address] (PERIACTIN) 13:02: 3D (three) Hos whit 4 mg tablet 39 times a l day as needed for allergies. buPROPion 2021-0 Yes 300mg QD Take 300 Met hodi XL 1-[address] (WELLBUTRIN 13:02: mouth Hospi ta XL) 300 MG 39 daily. l 24 hr tablet ascorbic 2022-0 Yes 500mg Q.[id number] Take 500 [facility] acid, 1-[id number] vitamin C, 13:02: 3D [...] jo-ann 39 l calcium 2-0 Yes 667mg Q.13020093 Take 667 [facility] acetate 1-[id number] (PHOSLO) 13:02: 3D mouth [...] 39 nightly. l calcium 2021-0 Yes 1334mg Q.[id number] Take 1,334 [facility] acetate,domingo 1-18 [id number] mg by s t sphat bind, 13:02: 3D mouth 3 Hos whit (Phoslyra) 39 (three) l 667 mg (169 times a mg day. calcium)/5 mL solution cyproheptad 0 Yes 4mg Q.[id number] Take 4 mg [facility] ine -18 [id number] by mouth [address] (PERIACTIN) 13:02: 3D (three) Hos whit 4 mg tablet 39 times a l day as needed for allergies. buPROPion 0 Yes 300mg QD Take 300 Met hodi XL 1-[address] (WELLBUTRIN 13:02: mouth Hospi ta XL) 300 MG 39 daily. l 24 hr tablet ascorbic 2021-0 Yes 500mg Q.10882765 Take 500 [facility] acid, 1-[id number] vitamin C, 13:02: 3D [...] jo-ann 39 l calcium 2021-0 Yes 667mg Q.07985205 Take 667 [facility] acetate 1-[id number] (PHOSLO) 13:02: 3D mouth [...] 39 nightly. l calcium 2021-0 Yes 1334mg Q.15450783 Take 1,334 [facility] acetate,domingo 1-18 [id number] mg by s t sphat bind, 13:02: 3D mouth 3 Hos whit (Phoslyra) 39 (three) l 667 mg (169 times a mg day. calcium)/5 mL solution cyproheptad 2021-0 Yes 4mg Q.[id number] Take 4 mg [facility] ine 1-18 [id number] by mouth [address] (PERIACTIN) 13:02: 3D (three) Hos whit 4 mg tablet 39 times a l day as needed for allergies. buPROPion 2021-0 Yes 300mg QD Take 300 Met hodi XL 1-[address] (WELLBUTRIN 13:02: mouth Hospi ta XL) 300 MG 39 daily. l 24 hr tablet ascorbic 2021-0 Yes 500mg Q.11643974 Take 500 [facility] acid, 1-[id number] vitamin C, 13:02: 3D [...] jo-ann 39 l calcium 2022-0 Yes 667mg Q.[id number] Take 667 [facility] acetate 1-[id number] (PHOSLO) 13:02: 3D mouth [...] 39 nightly. l calcium 2021-0 Yes 1334mg Q.[id number] Take 1,334 [facility] acetate,domingo 1-18 [id number] mg by s t sphat bind, 13:02: 3D mouth 3 Hos whit (Phoslyra) 39 (three) l 667 mg (169 times a mg day. calcium)/5 mL solution cyproheptad 2021-0 Yes 4mg Q.[id number] Take 4 mg [facility] ine 1-18 [id number] [address] mouth [address] (PERIACTIN) 13:02: 3D (three) Hos whit 4 mg tablet 39 times a l day as needed for allergies. buPROPion 2021-0 Yes 300mg QD Take 300 Met hodi XL 1-[address] (WELLBUTRIN 13:02: mouth Hospi ta XL) 300 MG 39 daily. l 24 hr tablet ascorbic 2021-0 Yes 500mg Q.74447009 Take 500 [facility] acid, 1-[id number] vitamin C, 13:02: 3D [...] jo-ann 39 l calcium 2022-0 Yes 667mg Q.46706209 Take 667 [facility] acetate 1-[id number] (PHOSLO) 13:02: 3D mouth [...] 39 nightly. l calcium 2021-0 Yes 1334mg Q.97028488 Take 1,334 [facility] acetate,domingo 1-18 [id number] mg by s t sphat bind, 13:02: 3D mouth 3 Hos whit (Phoslyra) 39 (three) l 667 mg (169 times a mg day. calcium)/5 mL solution cyproheptad 2021-0 Yes 4mg Q.[id number] Take 4 mg [facility] ine 1-18 [id number] [address] mouth [address] (PERIACTIN) 13:02: 3D (three) Hos whit 4 mg tablet 39 times a l day as needed for allergies. buPROPion 2021-0 Yes 300mg QD Take 300 Met hodi XL 1-[address] (WELLBUTRIN 13:02: mouth Hospi ta XL) 300 MG 39 daily. l 24 hr tablet ascorbic 2021-0 Yes 500mg Q.[id number] Take 500 [facility] acid, 1-[id number] vitamin C, 13:02: 3D [...] jo-ann 39 l calcium 2021-0 Yes 667mg Q.[id number] Take 667 [facility] acetate 1-[id number] (PHOSLO) 13:02: 3D mouth [...] mg at night vancomycin 2020-06- No 750mg Q.55876730 Infuse 750 [facility] 750 mg in 07-08 [id number] mg into a [facility] sodium 00:00: 05:59 [facility] chloride 00 :00 catheter 3 l 0.9% 250 mL (three) IVPB times a week for 19 days. Administer 3 times weekly in dialysis vancomycin 2020-06- No 750mg Q.54884620 Infuse 750 [facility] 750 mg in 07-08 [id number] mg into a [facility] sodium 00:00: 05:59 3[facility] venous [facility] chloride 00 :00 catheter 3 l 0.9% 250 mL (three) IVPB times a week for 19 days. Administer 3 times weekly in dialysis vancomycin 2020-06- No 750mg Q.48722002 Infuse 750 [facility] 750 mg in 07-08 [id number] mg into a [address] sodium 00:00: 05:59 3[facility] venous [facility] chloride 00 :00 catheter 3 l 0.9% 250 mL (three) IVPB times a week for 19 days. Administer 3 times weekly in dialysis vancomycin 2020-06- No 750mg Q.89633228 Infuse 750 [facility] 750 mg in 07-08 [id number] mg into a [address] sodium 00:00: 05:59 3[facility] venous [facility] chloride 00 :00 catheter 3 l 0.9% 250 mL (three) IVPB times a week for 19 days. Administer 3 times weekly in dialysis vancomycin 2020-06- No 750mg Q.32595955 Infuse 750 [facility] 750 mg in 07-08 [id number] mg into a [address] sodium 00:00: 05:59 3[facility] venous [facility] chloride 00 :00 catheter 3 l 0.9% 250 mL (three) IVPB times a week for 19 days. Administer 3 times weekly in dialysis vancomycin 2020-06- No 750mg Q.05689027 Infuse 750 [facility] 750 mg in 07-08 [id number] mg into a [facility] sodium 00:00: 05:59 3[facility] venous [facility] chloride 00 :00 catheter 3 l 0.9% 250 mL (three) IVPB times a week for 19 days. Administer 3 times weekly in dialysis vancomycin 2020-06- No 750mg Q.69413424 Infuse 750 [facility] 750 mg in 07-08 [id number] mg into a [facility] sodium 00:00: 05:59 3[facility] venous [facility] chloride 00 :00 catheter 3 l 0.9% 250 mL (three) IVPB times a week for 19 days. Administer 3 times weekly in dialysis vancomycin 2020-06- No 750mg Q.78843435 Infuse 750 [facility] 750 mg in 07-08 [id number] mg into a [facility] sodium 00:00: 05:59 3[facility] venous [facility] chloride 00 :00 catheter 3 l 0.9% 250 mL (three) IVPB times a week for 19 days. Administer 3 times weekly in dialysis vancomycin 2020-06- No 750mg Q.38816129 Infuse 750 [facility] 750 mg in 07-08 [id number] mg into a [address] sodium 00:00: 05:59 3[facility] venous [facility] chloride 00 :00 catheter 3 l 0.9% 250 mL (three) IVPB times a week for 19 days. Administer 3 times weekly in dialysis vancomycin 2020-06- No 750mg Q.53544789 Infuse 750 [facility] 750 mg in 07-08 [id number] mg into a [facility] sodium 00:00: 05:59 3[facility] venous [facility] chloride 00 :00 catheter 3 l 0.9% 250 mL (three) IVPB times a week for 19 days. Administer 3 times weekly in dialysis vancomycin 2020-06- No 750mg Q.84009769 Infuse 750 [facility] 750 mg in 07-08 [id number] mg into a [facility] sodium 00:00: 05:59 3[facility] venous [facility] chloride 00 :00 catheter 3 l 0.9% 250 mL (three) IVPB times a week for 19 days. Administer 3 times weekly in dialysis vancomycin 2020-06- No 750mg Q.24426300 Infuse 750 [facility] 750 mg in 07-[id number] mg into a [address] sodium 00:00: 05:59 3[facility] venous [facility] chloride 00 :00 catheter 3 l 0.9% 250 mL (three) IVPB times a week for 19 days. Administer 3 times weekly in dialysis vancomycin 2020-06- No 750mg Q.65648132 Infuse 750 [facility] 750 mg in 07-08 [id number] mg into a [address] sodium 00:00: 05:59 3[facility] venous [facility] chloride 00 :00 catheter 3 l 0.9% 250 mL (three) IVPB times a week for 19 days. Administer 3 times weekly in dialysis HYDROcodone 2020-06- [place] [address] 1{tbl} Q6H Take 1 [facility] -acetaminop 2-29 -[address] [facility] ([facility]) 00:00: 05:59 mouth Hosp jo-ann 5-325 mg 00 :00 every 6 l per tablet (six) hours as needed for severe pain for up to 5 days .acute pain. Max Daily Amount: 4 tablets HYDROcodone 2020-06 1{tbl} Q6H Take 1 [facility] -acetaminop 2-29 -[address] [facility] ([facility]) 00:00: 05:59 mouth Hosp jo-ann 5-325 mg 00 :00 every 6 l per tablet (six) hours as needed for severe pain for up to 5 days .acute pain. Max Daily Amount: 4 tablets HYDROcodone 2020-06 1{tbl} Q6H Take 1 [facility] -acetaminop 2-29 -[address] [employer] ([facility]) 00:00: 05:59 mouth Hosp jo-ann 5-325 mg 00 :00 every 6 l per tablet (six) hours as needed for severe pain for up to 5 days .acute pain. Max Daily Amount: 4 tablets HYDROcodone 2020-06 1{tbl} Q6H Take 1 [facility] -acetaminop 2-29 -[address] hen ([facility]) 00:00: 05:59 mouth Hosp jo-ann 5-325 mg 00 :00 every 6 l per tablet (six) hours as needed for severe pain for up to 5 days .acute pain. Max Daily Amount: 4 tablets HYDROcodone 2020-06 1{tbl} Q6H Take 1 [facility] -acetaminop 2-29 -[address] hen ([facility]) 00:00: 05:59 mouth Hosp jo-ann 5-325 mg 00 :00 every 6 l per tablet (six) hours as needed for severe pain for up to 5 days .acute pain. Max Daily Amount: 4 tablets HYDROcodone 2020-06 1{tbl} Q6H Take 1 [facility] -acetaminop 2-29 -[address] [employer] ([facility]) 00:00: 05:59 mouth Hosp jo-ann 5-325 mg 00 :00 every 6 l per tablet (six) hours as needed for severe pain for up to 5 days .acute pain. Max Daily Amount: 4 tablets HYDROcodone 2020-06 1{tbl} Q6H Take 1 [facility] -acetaminop 2-29 -[address] hen ([facility]) 00:00: 05:59 mouth Hosp jo-ann 5-325 mg 00 :00 every 6 l per tablet (six) hours as needed for severe pain for up to 5 days .acute pain. Max Daily Amount: 4 tablets HYDROcodone 2020-06 1{tbl} Q6H Take 1 [facility] -acetaminop 2-29 -[address] [facility] ([facility]) 00:00: 05:59 mouth Hosp jo-ann 5-325 mg 00 :00 every 6 l per tablet (six) hours as needed for severe pain for up to 5 days .acute pain. Max Daily Amount: 4 tablets HYDROcodone 2020-06 1{tbl} Q6H Take 1 [facility] -acetaminop 2-29 -[address] [facility] ([facility]) 00:00: 05:59 mouth Hosp jo-ann 5-325 mg 00 :00 every 6 l per tablet (six) hours as needed for severe pain for up to 5 days .acute pain. Max Daily Amount: 4 tablets HYDROcodone 2020-06 1{tbl} Q6H Take 1 [facility] -acetaminop 2-29 -[address] [facility] ([facility]) 00:00: 05:59 mouth Hosp jo-ann 5-325 mg 00 :00 every 6 l per tablet (six) hours as needed for severe pain for up to 5 days .acute pain. Max Daily Amount: 4 tablets HYDROcodone 2020-06 1{tbl} Q6H Take 1 [facility] -acetaminop 2-29 -[address] [facility] ([facility]) 00:00: 05:59 mouth Hosp jo-ann 5-325 mg 00 :00 every 6 l per tablet (six) hours as needed for severe pain for up to 5 days .acute pain. Max Daily Amount: 4 tablets HYDROcodone 2020-06 1{tbl} Q6H Take 1 [facility] -acetaminop 2-29 -[address] hen ([facility]) 00:00: 05:59 mouth Hosp jo-ann 5-325 mg 00 :00 every 6 l per tablet (six) hours as needed for severe pain for up to 5 days .acute pain. Max Daily Amount: 4 tablets HYDROcodone 2020-06 No [id number] 1{tbl} Q6H Take 1 [facility] -acetaminop 06-[address] [facility] ([facility]) 00:00: 05:59 mouth [facility]osp jo-[facility] 5-325 mg [...] 2-05 12-13 tablets by s t hen ([facility]) 00:00: 05:59 mouth Hosp jo-ann 5-325 mg 00 :00 every 8 l per tablet (eight) hours as needed for severe pain for up to 7 days .acute pain. Max Daily Amount: 6 tablets HYDROcodone 2020-0628 2{tbl} Q8H Take 2 [facility] -acetaminop 2-05 12-13 tablets by s t hen ([facility]) 00:00: 05:59 mouth [facility]osp jo-ann 5-325 mg 00 :00 every 8 l per tablet (eight) hours as needed for severe pain for up to 7 days .acute pain. Max Daily Amount: 6 tablets HYDROcodone 2020-0628 2{tbl} Q8H Take 2 [facility] -acetaminop 2-05 12-13 tablets by s t hen ([facility]) 00:00: 05:59 mouth Hosp jo-ann 5-325 mg 00 :00 every 8 l per tablet (eight) hours as needed for severe pain for up to 7 days .acute pain. Max Daily Amount: 6 tablets HYDROcodone 2020-06 2{tbl} Q8H Take 2 [facility] -acetaminop 2-05 12-13 tablets by s t hen ([facility]) 00:00: 05:59 mouth Hosp jo-[facility] 5-325 mg 00 :00 every 8 l per tablet (eight) hours as needed for severe pain for up to 7 days .acute pain. Max Daily Amount: 6 tablets HYDROcodone 2020-06 2{tbl} Q8H Take 2 [facility] -acetaminop 2-05 12-13 tablets by s t hen ([facility]) 00:00: 05:59 mouth Hosp jo-[facility] 5-325 mg 00 :00 every 8 l per tablet (eight) hours as needed for severe pain for up to 7 days .acute pain. Max Daily Amount: 6 tablets HYDROcodone 2020-06 2{tbl} Q8H Take 2 [facility] -acetaminop 2-05 12-13 tablets by s t hen ([facility]) 00:00: 05:59 mouth [facility]osp jo-[facility] 5-325 mg 00 :00 every 8 l per tablet (eight) hours as needed for severe pain for up to 7 days .acute pain. Max Daily Amount: 6 tablets HYDROcodone 2020-06 2{tbl} Q8H Take 2 [facility] -acetaminop 2-05 12-13 tablets by s t hen ([facility]) 00:00: 05:59 mouth [facility]osp jo-[facility] 5-325 mg 00 :00 every 8 l per tablet (eight) hours as needed for severe pain for up to 7 days .acute pain. Max Daily Amount: 6 tablets HYDROcodone 2020-06 2{tbl} Q8H Take 2 [facility] -acetaminop 2-05 12-13 tablets by s t hen ([facility]) 00:00: 05:59 mouth Hosp jo-ann 5-325 mg 00 :00 every 8 l per tablet (eight) hours as needed for severe pain for up to 7 days .acute pain. Max Daily Amount: 6 tablets HYDROcodone 2020-06 2{tbl} Q8H Take 2 [facility] -acetaminop 2-05 12-13 tablets by s t hen ([facility]) 00:00: 05:59 mouth Hosp jo-[facility] 5-325 mg [...] Daily Amount: 6 tablets HYDROcodone 2020-06- No [id number] 2{tbl} Q8H Take 2 [facility] -acetaminop 2-05 12-13 tablets by s t hen ([facility]) 00:00: 05:59 [facility] 5-325 mg 00 :00 every 8 l per tablet (eight) hours as needed for severe pain for up to 7 days .acute pain. Max Daily Amount: 6 tablets predniSONE 2020-06- No [id number] Take M ethodi (DELTASONE) 07-1805 Prednisone s t 50 mg 00:00: 00:00 50mg 13 [facility]osp[facility] tablet 00 :00 hours, 7 l hours, and 1 hour prior to scheduled procedure on 05/19/2021 for contrast allergy prophylaxi s. predniSONE 2020-06- No [id number] Take M ethodi (DELTASONE) 07-18 12-05 Prednisone s t 50 mg 00:00: 00:00 50mg 13 [facility]ospita tablet 00 :00 hours, 7 l hours, and 1 hour prior to scheduled procedure on 05/19/2021 for contrast allergy prophylaxi s. predniSONE 2020-06- No [id number] Take M ethodi (DELTASONE) 07-18 12-05 Prednisone s t 50 mg 00:00: 00:00 50mg 13 [facility] tablet 00 :00 hours, 7 l hours, and 1 hour prior to scheduled procedure on 05/19/2021 for contrast allergy prophylaxi s. predniSONE 2020-06- No [id number] Take M ethodi (DELTASONE) 07-18 12-05 Prednisone s t 50 mg 00:00: 00:00 50mg 13 [facility] tablet 00 :00 hours, 7 l hours, and 1 hour prior to scheduled procedure on 05/19/2021 for contrast allergy prophylaxi s. predniSONE 2020-06- No [id number] Take M ethodi (DELTASONE) 1-28 12-05 Prednisone s t 50 mg 00:00: 00:00 50mg 13 [facility] tablet 00 :00 hours, 7 l hours, and 1 hour prior to scheduled procedure on 05/19/2021 for contrast allergy prophylaxi s. predniSONE 2020-06- No [id number] Take M ethodi (DELTASONE) 07-18 12-05 Prednisone s t 50 mg 00:00: 00:00 50mg 13 [facility] tablet 00 :00 hours, 7 l hours, and 1 hour prior to scheduled procedure on 05/19/2021 for contrast allergy prophylaxi s. predniSONE 2020-06- No [id number] Take M ethodi (DELTASONE) 07-18 12-05 Prednisone s t 50 mg 00:00: 00:00 50mg 13 [facility] tablet 00 :00 hours, 7 l hours, and 1 hour prior to scheduled procedure on 05/19/2021 for contrast allergy prophylaxi s. predniSONE 2020-06- No [id number] Take M ethodi (DELTASONE) 07-18 12-05 Prednisone s t 50 mg 00:00: 00:00 50mg 13 [facility] tablet 00 :00 hours, 7 l hours, and 1 hour prior to scheduled procedure on 05/19/2021 for contrast allergy prophylaxi s. predniSONE 2020-06- No [id number] Take M ethodi (DELTASONE) 07-18 12-05 Prednisone s t 50 mg 00:00: 00:00 50mg 13 [facility] tablet 00 :00 hours, 7 l hours, and 1 hour prior to scheduled procedure on 05/19/2021 for contrast allergy prophylaxi s. predniSONE 2020-06- No [id number] Take M ethodi (DELTASONE) 07-18 12-05 Prednisone s t 50 mg 00:00: 00:00 50mg 13 [facility] tablet 00 :00 hours, 7 l hours, and 1 hour prior to scheduled procedure on 05/19/2021 for contrast allergy prophylaxi s. linaGLIPtin 2020-06- No 5mg QD Take 5 mg [facility] (TRADJENTA) 07-14 11-[address] 5 mg tablet [...] by ity of Vitamin D3, 11:08: mouth. Baljindera s 125 mcg 01 Medical (5,000 Branch unit) tablet proMETHazin 2020-06 Yes 25mg Take 25 mg Univers e 25 mg 0-03 by mouth. ity of tablet 11:08: [place] [id number] Medical Branch aspirin 81 2020-06 Yes 81mg Take 1 Unive rs mg chewable 0-03 tablet by ity of tablet 11:08: mouth [place] 01 daily. Medical Branch divalproex 2020-06 Yes 500mg Take 500 Un lori ER 0-01 mg by ity of (DEPAKOTE 23:08: mouth 2 [place] ER) 500 mg 36 (two) Medical 24 hr times Branch tablet daily. gabapentin 2020-06 Yes 100mg Take 100 Un lori 100 mg 0-01 mg by ity of capsule 23:08: mouth 2 [place] [address] (two) Medical times Branch daily. vitamin C 2020-06 Yes 2000mg Take 2,000 Univers with sia 0-01 mg by ity of hips 23:08: mouth 2 [place] (VITAMIN C) 36 (two) Medical 1,000 mg times Branch tablet daily. metoprolol 2020-06 Yes 50mg Take 50 mg U nivers tartrate 50 0-01 by mouth ity of mg tablet 23:08: daily. [address] Branch folic 2020-06 Yes 800mg Take 800 Univers acid/vit B 0-01 mg by ity of complex and 23:08: mouth [place] C 36 daily. Medical (DIALYVITE Branch 800 ORAL) linagliptin 2020-06 Yes Take by Uni vers (TRADJENTA) 0-01 mouth. ity of 5 mg tablet 23:08: [address] Branch spironolact 2020-06 Yes 50mg Take 50 mg Univers one 50 mg 0-01 by mouth ity of tablet 23:08: daily. [address] Branch pravastatin 2020-06 Yes 40mg Take 40 mg Univers 40 mg 0-01 by mouth ity of tablet 23:08: daily. [address] mv-mn/iron/ 2020-06 Yes 1{capsu Take 1 U nivers folic 0-01 le} capsule by ity of acid/herb 23:08: mouth [place] 190 36 daily. Medical (VITAMIN D3 Branch COMPLETE ORAL) SERTraline 2020-06 Yes 50mg Take 50 mg U nivers 50 mg 0-01 by mouth ity of tablet 23:08: daily. [address] Branch calcium 2020-06 Yes 667mg Take 667 Unive rs acetate 667 0-01 mg by ity of mg capsule 23:08: mouth 3 [place] (three) Medical times Branch daily with meals. cetirizine 2020-06 Yes 1{tbl} Take 1 Uni vers HCl/pseudoe 0-01 tablet by ity of phedrine 23:08: mouth [place] (ZYRTEC-D 36 daily. Medical ORAL) Branch furosemide 2020-06 Yes 40mg Take 40 mg U nivers 40 mg 0-01 by mouth 2 ity of tablet 23:08: (two) [place] [id number] times Medical daily. Branch divalproex 2020-06 Yes 500mg Take 500 Un lori ER 0-01 mg by ity of (DEPAKOTE 23:08: mouth 2 [place] ER) 500 mg 36 (two) Medical 24 hr times Branch tablet daily. gabapentin 2020-06 Yes 100mg Take 100 Un lori 100 mg 0-01 mg by ity of capsule 23:08: mouth 2 [place] [address] (two) Medical times Branch daily. vitamin C 2020-06 Yes 2000mg Take 2,000 Univers with sia 0-01 mg by ity of hips 23:08: mouth 2 [place] (VITAMIN C) 36 (two) Medical 1,000 mg times Branch tablet daily. metoprolol 2020-06 Yes 50mg Take 50 mg U nivers tartrate 50 0-01 by mouth ity of mg tablet 23:08: daily. [address] Branch folic 2020-06 Yes 800mg Take 800 Univers acid/vit B 0-01 mg by ity of complex and 23:08: mouth [place] C 36 daily. Medical (DIALYVITE Branch 800 ORAL) linagliptin 2020-06 Yes Take by Uni vers (TRADJENTA) 0-01 mouth. ity of 5 mg tablet 23:08: [address] Branch spironolact 2020-06 Yes 50mg Take 50 mg Univers one 50 mg 0-01 by mouth ity of tablet 23:08: daily. [address] Branch pravastatin 2020-06 Yes 40mg Take 40 mg Univers 40 mg 0-01 by mouth ity of tablet 23:08: daily. [address] Branch mv-mn/iron/ 2020-06 Yes 1{capsu Take [...] janice 8-11 (Same as: l 01:36: Mylicon) [place] 00 Simethicone No Notes: [place]endo[place] janice 8-11 (Same as: l 01:36: Mylicon) [place] 00 Simethicone No Notes: [place] janice 8-11 (Same as: l 01:36: Mylicon) [place] 00 Simethicone No Notes: [place] janice 8-11 (Same as: l 01:36: Mylicon) Simethicone No Notes: [place] janice 8-11 (Same as: l 01:36: Mylicon) epoetin Yes 2,000 unit M[place]za janice giovanny-epbx 8-10 = 1 mL, l 1999 19:37: IV, [place] units/mL 00 Q-M-W-F, preservativ to be e-free given at injectable post solution Dialysis sessions, 0 Refill(s) epoetin Yes 2,000 unit M[place] janice giovanny-epbx 8-10 = 1 mL, l 1999 19:37: IV, [place] units/mL 00 Q-M-W-F, preservativ to be e-free given at injectable post solution Dialysis sessions, 0 Refill(s) epoetin Yes 2,000 unit [place] janice giovanny-epbx 8-10 = 1 mL, l 1999 19:37: IV, [place] units/mL 00 Q-M-W-F, preservativ to be e-free given at injectable post solution Dialysis sessions, 0 Refill(s) epoetin Yes 2,000 unit [place] janice giovanny-epbx 8-10 = 1 mL, l 1999 19:37: IV, [place] units/mL 00 Q-M-W-F, preservativ to be e-free given at injectable post solution Dialysis sessions, 0 Refill(s) epoetin Yes 2,000 unit M[place] janice giovanny-epbx 8-10 = 1 mL, l 1999 19:37: IV, [place] units/mL 00 Q-M-W-F, preservativ to be e-free given at injectable post solution Dialysis sessions, 0 Refill(s) gabapentin 2021-0 Yes 300 mg = 1 M emoria 300 MG Oral 8-10 cap, PO, l Capsule 19:34: Q, # Herm naeem 00 13 cap, 0 Refill(s) gabapentin 2020-0 Yes 300 mg = 1 M emoria 300 MG Oral 8-10 cap, PO, l Capsule 19:34: QF, # Herm naeem 00 13 cap, 0 Refill(s) gabapentin 2020-0 Yes 300 mg = 1 M emoria 300 MG Oral 8-10 cap, PO, l Capsule 19:34: Q, # Herm naeem 00 13 cap, 0 Refill(s) gabapentin 0 Yes 300 mg = 1 M emoria [...] Daily, # 30 tab, 2 Refill(s) busPIRone 0 Yes 7.5 mg = 1 Me moria 7.5 mg oral 8-10 tab, PO, l tablet 19:33: BID, 0 [place] 00 Refill(s) buPROPion 0 Yes 75 mg = 1 Mem oria 75 mg oral 8-10 tab, PO, l tablet 19:33: Daily, # [place] 00 14 tab, 0 Refill(s) amLODIPine Yes 10 mg = 1 Me moria 10 mg oral 8-10 tab, PO, l tablet 19:33: Daily, # [place] 00 30 tab, 2 Refill(s) busPIRone 0 [...] Daily, # 30 tab, 2 Refill(s) busPIRone 0 Yes 7.5 mg = 1 Me moria 7.5 mg oral 8-10 tab, PO, l tablet 19:33: BID, 0 Vin 00 Refill(s) buPROPion 0 Yes 75 mg = 1 Mem oria 75 mg oral 8-10 tab, PO, l tablet 19:33: Daily, # 14 tab, 0 Refill(s) Norvasc No Notes: Memoria 8-10 (Same as: l 17:35: Norvasc) [place] 00 Norvasc No Notes: Memoria 8-10 (Same as: l 17:35: Norvasc) [place] 00 Norvasc No Notes: Memoria 8-10 (Same as: l 17:35: [facility]) [facility]: [facility] 8-10 (Same as: l 17:35: Norvasc) [place] Norvasc No Notes: Memoria 8-10 (Same as: l 17:35: Norvasc) [place] 00 Dextrose 2020-0 No 25 gm, 50 Mendoza [...] Size: 2,000 unit Product Wasted: ____unit D5NS ,000 No 1,000 mL, Me moria mL 01-27 [...] mL 01-27 Rate: 20 l 20:28: ml/hr, [place] 00 Infuse over: 50 hr, Route: IV, Dosing Weight 74.5 kg, Total Volume: 1,000, Start date: 01/27/21 15:28:00 CDT, Duration: 30 day, Stop date: 02/26/21 15:27:00 CDT, BSA: 1.79 m2, 0 D5NS 1,000 2020-0 No 1,000 mL, Me moria mL 01-27 Rate: 20 l 20:28: ml/hr, [place] 00 Infuse over: 50 hr, Route: IV, Dosing Weight 74.5 kg, Total Volume: 1,000, Start date: 01/27/21 15:28:00 CDT, Duration: 30 day, Stop date: 02/26/21 15:27:00 CDT, BSA: 1.79 m2, 0 D5NS 1,000 2020-0 No 1,000 mL, Me moria mL 01-27 Rate: 20 l 20:28: ml/hr, [place] 00 Infuse over: 50 hr, Route: IV, [...] Memoria 01-27 porcine l 02:00: heparin [place] heparin No Notes: Memoria 01-27 porcine l 02:00: heparin Vin heparin No Notes: Memoria 01-27 porcine l 02:00: heparin [place] heparin No Notes: Memoria 01-27 porcine l 02:00: heparin [place] heparin No Notes: Memoria 01-27 porcine l 02:00: heparin Vin Magnesium No Notes: Memori a Oxide 01-23 (Same as: l 22:54: Mag-Ox [place] 00 400) Magnesium oxide 315kl=398c g elemental magnesium Dose=____m g magnesium oxide (___mg elemental magnesium) Magnesium No Notes: Memori a Oxide 8- (Same as: l 22:54: Mag-Ox [place] 400) Magnesium oxide 994dt=563m g elemental magnesium Dose=____m g magnesium oxide (___mg elemental magnesium) Magnesium No Notes: Memori a Oxide - (Same as: l 22:54: Mag-Ox [place] 00 400) Magnesium oxide 531ip=521z g elemental magnesium Dose=____m g magnesium oxide (___mg elemental magnesium) Magnesium No Notes: Memori a Oxide 8- (Same as: l 22:54: Mag-Ox [place] 00 400) Magnesium oxide 730en=214h g elemental magnesium Dose=____m g magnesium oxide (___mg elemental magnesium) Magnesium No Notes: Memori a Oxide - (Same as: l 22:54: Mag-Ox [place] 00 400) Magnesium oxide 700lg=631r g elemental magnesium Dose=____m g magnesium oxide [...] Memoria 8-05 Give with l 02:00: food. [place] 00 (Same As: Coreg) Coreg No Notes: Memoria 8-05 Give with l 02:00: food. [place] 00 (Same As: Coreg) Buspar No Notes: Memoria 8-04 (Same As: l 22:00: BuSpar) [place] 00 Buspar No Notes: Memoria 8-04 (Same As: l 22:00: BuSpar) Vin 00 Buspar No Notes: Memoria 8-04 (Same As: l 22:00: BuSpar) [place] 00 Buspar No Notes: Memoria 8-04 (Same As: l 22:00: BuSpar) Vin 00 Buspar No Notes: Memoria 8-04 (Same As: l 22:00: BuSpar) [place] Fentanyl No Notes: Memoria 8-04 (Same as: l 21:06: Sublimaze) Vin Preservati ve free. Fentanyl No Notes: Memoria 8-04 (Same as: l 21:06: Sublimaze) [place] Preservati ve free. Fentanyl No Notes: Memoria 8-04 (Same as: l 21:06: Sublimaze) Vin Preservati ve free. Fentanyl No Notes: Memoria 8-04 (Same as: l 21:06: Sublimaze) Vin Preservati ve free. Fentanyl No Notes: Memoria 8-04 (Same as: l 21:06: Sublimaze) Vin Preservati ve free. Norvasc No Notes: Memoria 8-04 (Same as: l 16:47: Norvasc) Vin Norvasc No Notes: Memoria 8-04 (Same as: l 16:47: Norvasc) [place] Norvasc No Notes: Memoria 8-04 (Same as: l 16:47: Norvasc) [place] 00 Norvasc No Notes: Memoria 8-04 (Same as: l 16:47: Norvasc) Vin 00 Norvasc No Notes: Memoria 8-04 (Same as: l 16:47: Norvasc) Vin 00 Wellbutrin No Notes: Memor ia 8-04 (Same As: l 16:00: Wellbutrin [place] 00 ) Wellbutrin No Notes: Memor ia 8-04 (Same As: l 16:00: Wellbutrin [place] 00 ) Wellbutrin No Notes: Memor ia 8-04 (Same As: l 16:00: Wellbutrin [place] 00 ) Wellbutrin No Notes: Memor ia 8-04 (Same As: l 16:00: Wellbutrin [place] 00 ) Wellbutrin No Notes: Memor ia [...] Tradjenta No 5 mg, 1 Memor ia -04 tab, l 14:00: Route: PO, Drug form: [...] ia 8-04 tab, l 14:00: Route: PO, 00 Drug form: TAB, Daily, Dosing Weight 72, [...] Memoria 8-04 (Same as: l 09:44: Sublimaze) [place] 00 Preservati ve free. Tramadol No Notes: Not Mem oria 8-04 to exceed l 09:44: 400mg/day. Vin 00 (Same As: Ultram) Tylenol 0 No Notes: Do Memor ia 8-04 not exceed l 09:44: 4 gm/day. Vin 00 (Same as: Tylenol) Fentanyl No Notes: Memoria 8-04 (Same as: l 09:44: Sublimaze) [place] 00 Preservati ve free. Tramadol No Notes: Not Mem oria 8-04 to exceed l 09:44: 400mg/day. [place] 00 (Same As: Ultram) Tylenol 0 No Notes: Do Memor ia 8-04 not exceed l 09:44: 4 gm/day. [place] 00 (Same as: Tylenol) Fentanyl No Notes: Memoria 8-04 (Same as: l 09:44: Sublimaze) Vin 00 Preservati ve free. Tramadol 0 No Notes: Not Mem oria 8-04 to exceed l 09:44: 400mg/day. [place] 00 (Same As: Ultram) Tylenol 0 No Notes: Do Memor ia 8-04 not exceed l 09:44: 4 gm/day. [place] 00 (Same as: Tylenol) Fentanyl 0 No Notes: Memoria 8-04 (Same as: l 09:44: Sublimaze) [place] 00 Preservati ve free. Fentanyl 0 No Notes: Memoria 8-04 (Same as: l 04:46: Sublimaze) [place] 00 Preservati ve free. Fentanyl 0 No Notes: Memoria 8-04 (Same as: l 04:46: Sublimaze) Vin 00 Preservati ve free. Fentanyl 0 No Notes: Memoria 8-04 (Same as: l 04:46: Sublimaze) [place] 00 Preservati ve free. Fentanyl No Notes: Memoria 8-04 (Same as: l 04:46: Sublimaze) [place] 00 Preservati ve free. Fentanyl No Notes: Memoria 8-04 (Same as: l 04:46: Sublimaze) [place] 00 Preservati ve free. Fentanyl No Notes: Memoria 8-04 (Same as: l 02:01: Sublimaze) [place] 00 Preservati ve free. Fentanyl No Notes: Memoria 8-04 (Same as: l 02:01: Sublimaze) [place] 00 Preservati ve free. Fentanyl No Notes: Memoria 8-04 (Same as: l 02:01: Sublimaze) Vin 00 Preservati ve free. Fentanyl No Notes: Memoria 8-04 (Same as: l 02:01: Sublimaze) [place] 00 Preservati ve free. Fentanyl No Notes: Memoria 8-04 (Same as: l 02:01: Sublimaze) [place] 00 Preservati ve free. Coreg No Notes: [...] 8-04 2 tab, l 02:00: Route: PO, [place] 00 Drug form: ERTAB, Bedtime, Start date: 01/21/21 21:00:00 CDT, Duration: 30 day, Stop date: 02/19/21 21:00:00 CDT, 0 Coreg No Notes: Memoria 8-04 Give with l 02:00: food. [place] 00 (Same As: Coreg) Saline No Notes: Memoria Flush 0.9% 8-04 Same as: l 02:00: BD [place] 00 Posiflush Sterile Valproate No 1,000 mg, Mem oria 8-04 2 tab, l 02:00: Route: PO, Vin Drug form: ERTAB, Bedtime, Start date: 01/21/21 21:00:00 CDT, Duration: 30 day, Stop date: 02/19/21 21:00:00 CDT, 0 Coreg No Notes: Memoria 8-04 Give with l 02:00: food. [place] 00 (Same As: Coreg) Saline No Notes: Memoria Flush 0.9% 8-04 Same as: l 02:00: BD Vin 00 Posiflush Sterile Valproate No 1,000 mg, Mem oria 8-04 2 tab, l 02:00: Route: PO, [place] 00 Drug form: ERTAB, Bedtime, Start date: 01/21/21 21:00:00 CDT, Duration: 30 day, Stop date: 02/19/21 21:00:00 CDT, 0 Coreg No Notes: Memoria 8-04 Give with l 02:00: food. [place] 00 (Same As: Coreg) Saline No Notes: Memoria Flush 0.9% 8-04 Same as: l 02:00: BD Vin 00 Posiflush Sterile Valproate 0 No 1,000 mg, Mem oria 8-04 2 tab, l 02:00: Route: PO, Vin 00 Drug form: ERTAB, Bedtime, Start date: 01/21/21 21:00:00 CDT, Duration: 30 day, Stop date: 02/19/21 21:00:00 CDT, 0 heparin 0 No Notes: Memoria 8-03 porcine l 21:00: heparin [place] heparin No Notes: [facility]oria 8-03 porcine l 21:00: heparin [place] heparin No Notes: Memoria 8-03 porcine l 21:00: heparin Vin heparin No Notes: Memoria 8-03 porcine l 21:00: heparin [place] heparin No Notes: Memoria 8-03 porcine l 21:00: heparin [place] 00 Dextrose 0 No 12.5 gm, Memor ia 50% Syringe 01-21 25 mL, l (D50W) 20:01: Route: Vin 00 IVP, Drug Form: INJ, Dosing Weight 74.5, kg, PRN, PRN Blood Glucose Results, Start date: 01/21/21 15:01:00 CDT, Duration: 30 day, Stop date: 02/20/21 15:00:00 CDT, 0 Glucagon 2020-0 No 1 mg, Memoria 01-21 Route: IM, l 20:01: Drug form: [place] PDR/INJ, PRN, Dosing Weight 74.5, kg, PRN Blood Glucose Results, Start date: 01/21/21 15:01:00 CDT, Duration: 30 day, Stop date: 02/20/21 15:00:00 CDT, 0 Insulin 2020- No Notes: Memoria Lispro 01-21 (Same as: [...] 8- Route: IM, l 20:01: Drug form: [place] 00 PDR/INJ, PRN, Dosing Weight 74.5, kg, PRN Blood Glucose Results, Start date: 01/21/21 15:01:00 CDT, Duration: 30 day, Stop date: 02/20/21 15:00:00 CDT, 0 Insulin 2020-0 No Notes: Memoria Lispro 8-03 (Same as: l 20:01: Humalog) [place] 00 Roll in palms of hands gently; Do not shake vigorously . WASTE: F/P - Black; E - Municipal Trash Bin Stable for 28 days at room temperatur e. Expires in days from ____Date Dextrose 2020-0 No 12.5 gm, Memor ia 50% Syringe 01-21 25 mL, l (D50W) 20:01: Route: [place] 00 IVP, Drug Form: INJ, Dosing Weight 74.5, kg, PRN, PRN Blood Glucose Results, Start date: 01/21/21 15:01:00 CDT, Duration: 30 day, Stop date: 02/20/21 15:00:00 CDT, 0 Glucagon 2020-0 No 1 mg, Memoria 8- Route: IM, l 20:01: Drug form: [place] 00 PDR/INJ, PRN, Dosing Weight 74.5, kg, [...] 01-21 Route: IM, l 20:01: Drug form: [place] 00 PDR/INJ, PRN, Dosing Weight 74.5, kg, [...] 01-21 Route: IM, l 20:01: Drug form: [place] 00 PDR/INJ, PRN, Dosing Weight 74.5, kg, PRN Blood Glucose Results, Start date: 01/21/21 15:01:00 CDT, Duration: 30 day, Stop date: 02/20/21 15:00:00 CDT, 0 Insulin 2020-0 No Notes: [facility] Lispro 01-21 (Same as: l 20:01: Humalog) [place] 00 Roll in palms of hands gently; [...] Same as: l 200 mL 18:26: Cardene [place] (Titrate.) 00 Concentrat IV 40 mg ion: (0.2 mg /1 ml ) Cardene 40 No Notes: Memor ia mg in NS 01-21 Same as: l 200 mL 18:26: Cardene [place] (Titrate.) 00 Concentrat IV 40 mg ion: (0.2 mg /1 ml ) Cyproheptad No 4 mg, 1 Mem oria ine 01-21 tab, l 18:00: Route: PO, [place] 00 Drug form: TAB, TID, Dosing Weight 72, kg, Start date: 01/21/21 13:00:00 CDT, Duration: 30 day, Stop date: 02/20/21 9:00:00 CDT Cyproheptad 2021-0 No 4 mg, 1 Mem oria ine [...] day, Stop date: 02/20/21 9:00:00 CDT Albuterol 0 No Notes: SEE Me moria 8- RT l 17:49: DOCUMENTAT [place] 00 ION (Same as: Proventil) Albuterol No Notes: SEE Me moria 8- RT l 17:49: DOCUMENTAT [place] 00 ION (Same as: Proventil) Albuterol No Notes: SEE Pa moria 8- RT l 17:49: DOCUMENTAT [place] 00 ION (Same as: Proventil) Albuterol No Notes: SEE Me moria 8-03 RT l 17:49: DOCUMENTAT Vin ION (Same as: Proventil) Albuterol 2020-0 No Notes: SEE Me moria 8-03 RT l 17:49: DOCUMENTAT [place] 00 ION (Same as: Proventil) albuterol 0 No 180 Memoria 90 mcg/inh 8-03 microgram, [...] 0.9% 8-03 Same as: l 17:31: BD [place] 00 Posiflush Sterile propofol No Notes: If M emoria mg/mL 8-03 Diprivan - l (Titrate.) 17:31: change Nidia nn IV 1,000 mg 00 bottle & tubing every 12 hr Per state nursing law propofol can only be given by a nurse if patient is intubated or being intubated (unless the nurse is a [employer]). Same as: Diprivan Nystatin No Notes: Memoria [...] being intubated (unless the nurse is a [employer]). Same as: Diprivan Nystatin No Notes: Memoria 100 UNT/MG 8-03 (Same l Topical 17:31: as:[place]costa Herm naeem Powder 00 tin, Nilstat) For external use only. Saline No Notes: Memoria Flush 0.9% 8-03 Same as: l 17:31: BD [place] 00 Posiflush Sterile propofol No Notes: If M emoria mg/mL 8-03 Diprivan - l (Titrate.) 17:31: change Nidia nn IV 1,000 mg 00 bottle & tubing every 12 hr Per state nursing law propofol can only be given by a nurse if patient is intubated or being intubated (unless the nurse is a [employer]ENT). Same as: Diprivan Nystatin No Notes: Memoria 100 UNT/MG 8-03 (Same l Topical 17:31: as:Mycosta Herm naeem Powder 00 tin, Nilstat) For external use only. Saline No Notes: Memoria Flush 0.9% 8-03 Same as: l 17:31: BD [place] 00 Posiflush Sterile propofol 10 No Notes: If M emoria mg/mL 8-03 Diprivan - l (Titrate.) 17:31: change Nidia nn IV 1,000 mg 00 bottle & tubing every 12 hr Per state nursing law propofol can only be given by a nurse if patient is intubated or being intubated (unless the nurse is a [employer]). Same as: Diprivan Nystatin No Notes: Memoria 100 UNT/MG 8-03 (Same l Topical 17:31: as:Mycosta Herm naeem Powder 00 tin, Nilstat) For external use only. Saline No Notes: Memoria Flush 0.9% 8-03 Same as: l 17:31: BD [place] 00 Posiflush Sterile propofol No Notes: If M emoria mg/mL 8-03 Diprivan - l (Titrate.) 17:31: change Nidia nn IV 1,000 mg 00 bottle & tubing every 12 hr Per state nursing law propofol can only be given by a nurse if patient is intubated or being intubated (unless the nurse is a [employer]). Same as: Diprivan midazolam No Route: IV, Me moria (ANES) 01-21 Drug form: l 17:18: SOLN, [place] 00 ONCE, Stop date: 01/21/21 12:18:00 CDT fentaNYL No Route: IV, Mem oria (ANES) 01-21 Drug form: l 17:18: INJ, ONCE, [place] 00 Stop date: 01/21/21 12:18:00 CDT niCARdipine 2021-0 No Route: IV, Memoria (ANES) 01-21 Drug form: l 17:18: INJ, ONCE, Vin 00 Stop date: 01/21/21 12:18:00 CDT midazolam 2020-0 No Route: IV, Me moria (ANES) 01-21 Drug form: l 17:18: SOLN, [place] 00 ONCE, Stop date: 01/21/21 12:18:00 CDT [...] (ANES) 01-21 Drug form: l 17:18: SOLN, [place] 00 ONCE, Stop date: 01/21/21 12:18:00 CDT fentaNYL 2020-0 No Route: IV, Mem oria (ANES) 01-21 Drug form: l 17:18: INJ, ONCE, [place] 00 Stop date: 01/21/21 12:18:00 CDT niCARdipine 2020-0 No Route: IV, Memoria (ANES) 01-21 Drug form: l 17:18: INJ, ONCE, Stop date: 01/21/21 12:18:00 CDT midazolam 2021-0 No Route: IV, Me moria (ANES) 01-21 [...] ONCE, Stop date: 01/21/21 11:09:00 CDT lidocaine 0 No Route: IV, Me [...] CDT, Stop date: 01/21/21 10:17:00 CDT Hydralazine 2020-0 No Notes: Mendoza janice 8-03 (Same as: l 13:16: Apresoline ) Push over 5 minutes Labetalol 2020-0 No 10 mg, 2 [place] janice 8-03 mL, Route: l 13:16: IVP, Drug form: INJ, Q5Min, Dosing Weight 72, kg, PRN Elevated BP, Start date: 01/21/21 8:16:00 CDT, Duration: 5 doses or times, Stop date: 01/22/21 0:00:00 CDT, 0 Fentanyl No Notes: Memoria 8- (Same as: l 13:16: Sublimaze) Preservati ve free. Hydromorpho No Notes: Mendoza janice ne 8 Same as l 13:16: Dilaudid Flumazenil No [...] 0:00:00 CDT, 0 Fentanyl No Notes: Memoria 8 (Same as: l 13:16: Sublimaze) Preservati ve free. Hydromorpho No Notes: Mendoza janice ne 8- Same as l 13:16: Dilaudid Flumazenil No Notes: Memor ia 8- (Same as: l 13:16: Romazicon) Naloxone No [...] Phazyme, Genasyme) Hydralazine No Notes: [place]endo[place] janice 8-03 (Same [...] 01-21 not give l 13:16: IV push. [place] 00 (Same as: Phenergan) Simethicone No Notes: [place] janice 01-21 (Same as: l 13:16: Mylicon, [place] Phazyme, Genasyme) Hydralazine No Notes: Mendoza janice [...] 01-21 not give l 13:16: IV push. [place] 00 (Same as: Phenergan) Simethicone No Notes: [place] janice 01-21 (Same as: l 13:16: Mylicon, [place] Phazyme, Genasyme) Hydralazine No Notes: Mendoza janice [...] as: Phenergan) Simethicone No Notes: Mendoza janice -03 (Same as: l 13:16: Mylicon, Vin 00 [...] (one) time 11 each day. Xifaxan 550 2021-0 Yes 1{tbl} QD Take 1 [place] MG tablet 7-07 tablet by [facility] 00:00: mouth 1 00 (one) time each day. rifaximin 1-0 Yes 550 mg = 1 Me moria 550 MG Oral 7-06 tab, PO, l Tablet 18:46: TID, # 42 Jake n [XIFAXAN] 00 tab, 2 Refill(s), Pharmacy: [facility], 154.94, cm, 12/24/20 10:43:00 CDT, Height, 71.818, kg, 12/24/20 10:43:00 CDT, Weight rifaximin 1-0 Yes 550 mg = 1 Me moria 550 MG Oral 7-06 tab, PO, l Tablet 18:46: TID, # 42 Jake n [XIFAXAN] 00 tab, 2 Refill(s), Pharmacy: [facility], 154.94, cm, 12/24/20 10:43:00 CDT, Height, 71.818, kg, 12/24/20 10:43:00 CDT, Weight rifaximin 2020-0 Yes 550 mg = 1 Me moria 550 MG Oral 7-06 tab, PO, l Tablet 18:46: TID, # 42 Jake n [XIFAXAN] 00 tab, 2 Refill(s), Pharmacy: [facility], 154.94, cm, 12/24/20 10:43:00 CDT, Height, 71.818, kg, 12/24/20 10:43:00 CDT, Weight rifaximin 1-0 Yes 550 mg = 1 Me moria 550 MG Oral 7-06 tab, PO, l Tablet 18:46: TID, # 42 Jake n [XIFAXAN] 00 tab, 2 Refill(s), Pharmacy: [facility], 154.94, cm, 12/24/20 10:43:00 CDT, Height, 71.818, kg, 12/24/20 10:43:00 CDT, Weight rifaximin 1-0 Yes 550 mg = 1 Me moria 550 MG Oral 7-06 tab, PO, l Tablet 18:46: TID, # 42 Jake n [XIFAXAN] 00 tab, 2 Refill(s), Pharmacy: [facility], 154.94, cm, 12/24/20 10:43:00 CDT, Height, 71.818, kg, 12/24/20 10:43:00 CDT, Weight {2 (480 ML 2020-0 Yes See Memoria Magnesium 7-06 Instructio l Sulfate 18:12: ns, take Jake n 0.0277 00 as MEQ/ML / directed, potassium give sulfate clenpiq if 0.0374 not MEQ/ML / covered by sodium insurance, sulfate # 1 ea, 0 0.257 Refill(s), MEQ/ML Oral Pharmacy: Solution) } [facility] [Suprep 808, Bowel Prep 154.94, Kit] [...] 0.257 Refill(s), MEQ/ML Oral Pharmacy: Solution) } [facility] [Suprep 808, Bowel Prep 154.94, Kit] [...] 0.257 Refill(s), MEQ/ML Oral Pharmacy: Solution) } [facility] [Suprep 808, Bowel Prep 154.94, Kit] [...] 0.257 Refill(s), MEQ/ML Oral Pharmacy: Solution) } [facility] [Suprep 808, Bowel Prep 154.94, [...] 0.257 Refill(s), MEQ/ML Oral Pharmacy: Solution) } [facility] [Suprep 808, Bowel Prep 154.94, [...] tablet 18:10: TID, X 30 H erm 00 day, # 90 tab, 3 Refill(s), Pharmacy: [facility], 154.94, cm, 12/24/20 10:43:00 CDT, Height, 71.818, kg, 12/24/20 10:43:00 CDT, Weight cyproheptad 2020-0 Yes 4 mg = 1 Me moria ine 4 mg 7-06 tab, PO, l oral tablet 18:10: TID, X 30 H ermann 00 day, # 90 tab, 3 Refill(s), Pharmacy: [facility], 154.94, cm, 12/24/20 10:43:00 CDT, Height, 71.818, kg, 12/24/20 10:43:00 CDT, Weight cyproheptad 2020-0 Yes 4 mg = 1 Me moria ine 4 mg 7-06 tab, PO, l oral tablet 18:10: TID, X 30 H ermann 00 day, # 90 tab, 3 Refill(s), Pharmacy: [facility], 154.94, cm, 12/24/20 10:43:00 CDT, Height, 71.818, kg, 12/24/20 10:43:00 CDT, Weight cyproheptad 2020-0 Yes 4 mg = 1 Me moria ine 4 mg 7-06 tab, PO, l oral tablet 18:10: TID, X 30 H ermann 00 day, # 90 tab, 3 Refill(s), Pharmacy: [facility], 154.94, cm, 12/24/20 10:43:00 CDT, Height, 71.818, kg, 12/24/20 10:43:00 CDT, Weight cyproheptad 2020-0 Yes 4 mg = 1 Me moria ine 4 mg 7-06 tab, PO, l oral tablet 18:10: TID, X 30 H ermann 00 day, # 90 tab, 3 Refill(s), Pharmacy: [facility], 154.94, cm, 12/24/20 10:43:00 CDT, Height, 71.818, kg, 12/24/20 10:43:00 CDT, Weight Zinc 2020-0 Yes 140 mg, Memoria 7-06 PO, Daily, l 15:54: 0 [place] 00 Refill(s) Elderberry 2020-0 Yes 0 Memoria preparation 7-06 Refill(s) l 15:54: Vin 00 Zinc 0 Yes 140 mg, Memoria 7-06 [...] 7-06 Refill(s) l 15:53: Vin 00 Dialyvite 2020-0 Yes 0 Memoria 5000 7-06 Refill(s) l 15:53: Vin 00 busPIRone 2020-0 Yes 7.5mg Take 7.5 Uni vers 7.5 mg 6-19 mg by ity of tablet 00:00: mouth 2 [place] 00 (two) Medical times Branch daily. traZODone 2020-0 Yes 200mg QD Take 200 [facility] (Desyrel) 6-19 mg by Health 100 MG 00:00: mouth at tablet 00 night if needed. NEEDED sertraline 2020-0 Yes 50mg Take 50 mg U T [...] Take 300 UT XL 6-19 mg by [facility] (Wellbutrin 00:00: mouth 1 XL) 300 MG 00 (one) time 24 hr each day tablet in the morning. metoprolol 2020-0 Yes 1{tbl} QD Take 1 UT succinate 5-25 tablet by Healt h XL 00:00: mouth 1 (Toprol-XL) 00 (one) time 50 MG 24 hr each day. tablet ascorbic 2020-0 Yes 500mg Q.[id number] Take 500 UT acid 5-15 [id number] mg by Health (Vitamin C) 00:00: 3D mouth 3 500 MG 00 (three) tablet times a day. zinc 2020-0 Yes DAILY [facility] sulfate 50 5-10 ity of mg zinc 00:00: [place] (220 mg) Medical capsule Branch sucralfate 2021-0 Yes 1{tbl} QD Take 1 [facility] (Carafate) 5-10 tablet by Heal th 1 g tablet 00:00: mouth 1 00 (one) time each day. ondansetron Yes 4mg Take 4 mg U nivers 4 mg 4-13 by mouth ity of disintegrat [place] 00 [place] [facility] GLIPIZIDE 5 Yes [id number] TAKE 1 [facility] mg tablet 4-06 TABLET BY ity o f 00:00: MOUTH [place] 00 TWICE Medical DAILY Branch BEFORE BREAKFAST AND BEFORE SUPPER doxazosin 4 2020- No 4mg Take 4 mg [facility] mg tablet -12 19-07 by mouth 2 ity of 10:52: 00:00 (two) [place] 22 :00 times Medical daily. Branch doxazosin 4 Yes 4mg Take 1 Univ ers mg tablet 1-07 tablet by ity o f 00:00: mouth at [place] 00 bedtime. Medical Branch doxazosin 4 Yes 4mg Take 1 Univ ers mg tablet 1-07 tablet by ity o f 00:00: mouth at [place] 00 bedtime. Medical Branch glipiZIDE 5 2019-06- No [id number] 5mg Take 1 [facility] mg tablet 1-11 04-06 tablet by ity of 00:00: 00:00 mouth 2 [place] 00 :00 (two) Medical times Branch daily before breakfast and dinner. metoclopram Yes 1{tbl} Take 1 Un lori gadiel HCl 9-16 tablet by ity of (REGLAN) 5 00:00: mouth [place] mg tablet 00 daily. Medical Branch buPROPion 0 Yes 300mg Take 300 Uni vers XL 300 mg 9-15 mg by ity of 24 hr 00:00: mouth [place] tablet 00 daily. Medical Branch calcium 2019-0 Yes 667mg Take 667 Unive rs acetate,domingo 9-15 mg by ity of sphat bind, 00:00: [place]. [place] 667 mg 00 Medical capsule Branch traZODone 0 Yes 150mg Take 150 Uni vers 150 mg 8-13 mg by ity of tablet 00:00: mouth at [place] 00 bedtime. Medical Branch traZODone 2019-0 Yes 150mg Take 150 Uni vers 150 mg 8-13 mg by ity of tablet 00:00: mouth at [place] 00 bedtime. Medical Branch erythromyci 2020- No [id number] .5[in_u Place 0.5 Univers n 5 mg/gram [...] 59 daily. Center tablet metoclopram Yes 10mg Q.[id number] Take [address] [facility] gadiel HCl 7-20 [id number] by mouth 3 [facility] (REGLAN) 10 15:20: [...] l 59 Center hydrALAZINE 2017-0 Yes 100mg Q.[id number] Take [address] [facility] (APRESOLINE 7-20 [id number] mg by L ukes ) 100 MG 15:20: 3D mouth 3 Medica l tablet 59 (three) Center times daily. magnesium 2017-0 Yes 400mg QD Take [address] [facility] oxide 7-20 mg by [facility] (MAG-OX) 15:20: mouth Medical 400 mg 59 daily. Center tablet metoclopram 2017-0 Yes 10mg Q.80425868 Take [address] [facility] gadiel HCl 7-20 [id number] by mouth 3 [facility] (REGLAN) 10 15:20: [...] l 59 Center hydrALAZINE 2017-0 Yes 100mg Q.[id number] Take [address] [facility] (APRESOLINE 7-20 [id number] mg by L ukes ) 100 MG 15:20: 3D mouth 3 Medica l tablet 59 (three) Center times daily. magnesium 2017-0 Yes 400mg QD Take [address] [facility] [address] oxide 7-20 mg by [facility] (MAG-OX) 15:20: mouth Medical 400 mg 59 daily. Center tablet metoclopram 2017-0 Yes 10mg Q.[id number] Take [address] [facility] gadiel HCl 7-20 [id number] by mouth 3 [facility] (REGLAN) 10 15:20: [...] l 59 Center hydrALAZINE 2017-0 Yes 100mg Q.[id number] Take [address] [facility] [address] (APRESOLINE 7-20 [id number] mg by L ukes ) 100 MG 15:20: 3D mouth 3 Medica l tablet 59 (three) Center times daily. magnesium 2017-0 Yes 400mg QD Take [address] [facility] [address] oxide 7-20 mg by [facility] (MAG-OX) 15:20: mouth Medical 400 mg 59 daily. Center tablet metoclopram 2017-0 Yes 10mg Q.[id number] Take [address] [facility] gadiel HCl 7-20 [id number] by mouth 3 [facility] (REGLAN) 10 15:20: [...] l 59 Center hydrALAZINE 2017-0 Yes 100mg Q.[id number] Take [address] [facility] [address] (APRESOLINE 7-20 [id number] mg by L ukes ) 100 MG 15:20: 3D mouth 3 Medica l tablet 59 (three) Center times daily. magnesium 2017-0 Yes 400mg QD Take [address] [facility] [address] oxide 7-20 mg by [facility] (MAG-OX) 15:20: mouth Medical 400 mg 59 daily. Center tablet metoclopram 2017-0 Yes 10mg Q.63464653 Take [address] [facility] gadiel HCl 7-20 [id number] by mouth 3 [facility] (REGLAN) 10 15:20: [...] l 59 Center hydrALAZINE 2017-0 Yes 100mg Q.[id number] Take [address] [facility] [address] (APRESOLINE 7-20 [id number] mg by L ukes ) 100 MG 15:20: 3D mouth 3 Medica l tablet 59 (three) Center times daily. magnesium 2017-0 Yes 400mg QD Take [address] [facility] [address] oxide 7-20 mg by [facility] (MAG-OX) 15:20: mouth Medical 400 mg 59 daily. Center tablet metoclopram 2017-0 Yes 10mg Q.99183563 Take [address] [facility] gadiel HCl 7-20 [id number] by mouth 3 [facility] (REGLAN) 10 15:20: [...] l 59 Center hydrALAZINE 2017-0 Yes 100mg Q.[id number] Take [address] [facility] [address] (APRESOLINE 7-20 [id number] mg by L ukes ) 100 MG 15:20: 3D mouth 3 Medica l tablet 59 (three) Center times daily. magnesium 2017-0 Yes 400mg QD Take [address] [facility] [address] oxide 7-20 mg by [facility] (MAG-OX) 15:20: mouth Medical 400 mg 59 daily. Center tablet metoclopram 2017-0 Yes 10mg Q.[id number] Take [address] [facility] gadiel HCl 7-20 [id number] by mouth 3 [facility] (REGLAN) 10 15:20: [...] l 59 Center hydrALAZINE 2017-0 Yes 100mg Q.[id number] Take [address] [facility] [address] (APRESOLINE 7-20 [id number] mg by Misbah jc ) 100 MG 15:20: 3D mouth 3 Medica l tablet 59 (three) Center times daily. magnesium 2017-0 Yes 400mg QD Take [address] [facility] [address] oxide 7-20 mg by [facility] (MAG-OX) 15:20: mouth Medical 400 mg 59 daily. Center tablet metoclopram 2017- Yes 10mg Q.[id number] Take [address] [facility] gadiel HCl 7-20 [id number] by mouth 3 [facility] (REGLAN) 10 15:20: [...] l 59 Center hydrALAZINE 2017-0 Yes 100mg Q.[id number] Take [address] [facility] [address] (APRESOLINE 7-20 [id number] mg by L ukes ) 100 MG 15:20: 3D mouth 3 Medica l tablet 59 (three) Center times daily. magnesium 2017-0 Yes 400mg QD Take [address] [facility] [address] oxide 7-20 mg by [facility] (MAG-OX) 15:20: mouth Medical 400 mg 59 daily. Center tablet metoclopram 2017-0 Yes 10mg Q.69557194 Take [address] [facility] gadiel HCl 7-20 [id number] by mouth 3 [facility] (REGLAN) 10 15:20: [...] l 59 Center hydrALAZINE 2017-0 Yes 100mg Q.[id number] Take [address] [facility] [address] (APRESOLINE 7-20 [id number] mg by L ukes ) 100 MG 15:20: 3D mouth 3 Medica l tablet 59 (three) Center times daily. magnesium 2017-0 Yes 400mg QD Take [address] [facility] [address] oxide 7-20 mg by [facility] (MAG-OX) 15:20: mouth Medical 400 mg 59 daily. Center tablet metoclopram 2017- Yes 10mg Q.99907097 Take [address] [facility] gadiel HCl 7-20 [id number] by mouth 3 [facility] (REGLAN) 10 15:20: [...] l 59 Center hydrALAZINE 2017-0 Yes 100mg Q.[id number] Take [address] [facility] [address] (APRESOLINE 7-20 [id number] mg by L ukes ) 100 MG 15:20: 3D mouth 3 Medica l tablet 59 (three) Center times daily. magnesium 2017-0 Yes 400mg QD Take [address] [facility] [address] oxide 7-20 mg by [facility] (MAG-OX) 15:20: mouth Medical 400 mg 59 daily. Center tablet metoclopram 2017-0 Yes 10mg Q.[id number] Take [address] [facility] gadiel HCl 7-20 [id number] by mouth 3 [facility] (REGLAN) 10 15:20: [...] l 59 Center hydrALAZINE 2017-0 Yes 100mg Q.[id number] Take [address] [facility] [address] (APRESOLINE 7-20 [id number] mg by L ukes ) 100 MG 15:20: 3D mouth 3 Medica l tablet 59 (three) Center times daily. magnesium 2017-0 Yes 400mg QD Take [address] [facility] [address] oxide 7-20 mg by [facility] (MAG-OX) 15:20: mouth Medical 400 mg 59 daily. Center tablet metoclopram 2017-0 Yes 10mg Q.63191180 Take [address] [facility] gadiel HCl 7-20 [id number] by mouth 3 [facility] (REGLAN) 10 15:20: [...] l 59 Center hydrALAZINE 2017-0 Yes 100mg Q.[id number] Take [address] [facility] [address] (APRESOLINE 7-20 [id number] mg by L ukes ) 100 MG 15:20: 3D mouth 3 Medica l tablet 59 (three) Center times daily. magnesium 2017-0 Yes 400mg QD Take [address] [facility] [address] oxide 7-20 mg by [facility] (MAG-OX) 15:20: mouth Medical 400 mg 59 daily. Center tablet metoclopram 2017-0 Yes 10mg Q.24234585 Take [address] [facility] gadiel HCl 7-20 [id number] by mouth 3 [facility] (REGLAN) 10 15:20: [...] l 59 Center hydrALAZINE 2017-0 Yes 100mg Q.[id number] Take [address] [facility] [address] (APRESOLINE 7-20 [id number] mg by L ukes ) 100 MG 15:20: 3D mouth 3 Medica l tablet 59 (three) Center times daily. magnesium 2017-0 Yes 400mg QD Take [address] [facility] [address] oxide 7-20 mg by [facility] (MAG-OX) 15:20: mouth Medical 400 mg 59 daily. Center tablet metoclopram 2017-0 Yes 10mg Q.[id number] Take [address] [facility] gadiel HCl 7-20 [id number] by mouth 3 [facility] (REGLAN) 10 15:20: [...] l 59 Center hydrALAZINE 2017-0 Yes 100mg Q.[id number] Take [address] [facility] [address] (APRESOLINE 7-20 [id number] mg by L ukes ) 100 MG 15:20: 3D mouth 3 Medica l tablet 59 (three) Center times daily. magnesium 2017- Yes 400mg QD Take [address] oxide 7-20 mg by [facility]ukes (MAG-OX) 15:20: mouth Medical 400 mg 59 daily. Center tablet metoclopram 2017-0 Yes 10mg Q.[id number] Take [address] [facility] gadiel HCl 7-20 [id number] by mouth 3 [facility] (REGLAN) 10 15:20: [...] l 59 Center hydrALAZINE 2017-0 Yes 100mg Q.[id number] Take [address] [facility] [address] (APRESOLINE 7-20 [id number] mg by L ukes ) 100 MG 15:20: 3D mouth 3 Medica l tablet 59 (three) Center times daily. magnesium 2017-0 Yes 400mg QD Take [address] [facility] oxide 7-20 mg by [facility] (MAG-OX) 15:20: mouth Medical 400 mg 59 daily. Center tablet metoclopram 2017-0 Yes 10mg Q.[id number] Take [address] [facility] gadiel HCl 7-20 [id number] by mouth 3 [facility] (REGLAN) 10 15:20: [...] l 59 Center hydrALAZINE 2017-0 Yes 100mg Q.[id number] Take [address] [facility] [address] (APRESOLINE 7-20 [id number] mg by L ukes ) 100 MG 15:20: 3D mouth 3 Medica l tablet 59 (three) Center times daily. magnesium 2017-0 Yes 400mg QD Take [address] [facility] oxide 7-20 mg by [facility] (MAG-OX) 15:20: mouth Medical 400 mg 59 daily. Center tablet metoclopram 2017 Yes 10mg Q.13838638 Take [address] [facility] gadiel HCl 7-20 [id number] by mouth 3 [facility] (REGLAN) 10 15:20: [...] l 59 Center hydrALAZINE 20170 Yes 100mg Q.[id number] Take [address] [facility] [address] (APRESOLINE 7-20 [id number] mg by L ukes ) 100 MG 15:20: 3D mouth 3 Medica l tablet 59 (three) Center times daily. insulin 20170 Yes 5U QD Inject 5 [...] tab, PO, l Tablet 15:07: Daily, # [place] 00 30 tab, 0 Refill(s), Pharmacy: [place] [address] Furosemide Yes 40 mg = 1 Me moria 40 MG Oral 2-09 tab, PO, l Tablet 15:07: Daily, # [place] 00 30 tab, 0 Refill(s), Pharmacy: [place] [address] Furosemide Yes 40 mg = 1 Me moria 40 MG Oral 2 tab, PO, l Tablet 15:07: Daily, # [place] 00 30 tab, 0 Refill(s), Pharmacy: [place] [address] Furosemide Yes 40 mg = 1 Me moria 40 MG Oral 2-09 tab, PO, l Tablet 15:07: Daily, # [place] 00 30 tab, 0 Refill(s), Pharmacy: [facility] Furosemide Yes 40 mg = 1 Me moria 40 MG Oral 2-09 tab, PO, l Tablet 15:07: Daily, # [place] 00 30 tab, 0 Refill(s), Pharmacy: [place] [address] Bumex No 0.5 mg, Memoria 2 Route: PO, l 15:00: Drug form: Vin 00 TAB, Daily, Dosing Weight 92.273, kg, Start date: 07/30/16 9:00: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, Duration: 30 day, Stop date: 08/28/16 9:00: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 Bumex 2017-0 No 0.5 mg, Memoria 2-09 Route: PO, l 15:00: Drug form: Vin 00 TAB, Daily, Dosing Weight 92.273, kg, Start date: 07/30/16 9:00: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, Duration: 30 day, Stop date: 08/28/16 9:00: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 Bumex 2017-0 No 0.5 mg, Memoria 2-09 Route: PO, l 15:00: Drug form: [place] 00 TAB, Daily, Dosing Weight 92.273, kg, Start date: 07/30/16 9:00: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, Duration: 30 day, Stop date: 08/28/16 9:00: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 Bumex 2017-0 No 0.5 mg, Memoria 2-09 Route: PO, l 15:00: Drug form: [place] 00 TAB, Daily, Dosing Weight 92.273, kg, Start date: 07/30/16 9:00: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, Duration: 30 day, Stop date: 08/28/16 9:00: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 Bumex 2017-0 No 0.5 mg, Memoria 2-09 Route: PO, l 15:00: Drug form: [place] 00 TAB, Daily, Dosing Weight 92.273, kg, Start date: 07/30/16 9:00: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, Duration: 30 day, Stop date: 08/28/16 9:00: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 Lasix 2017-0 No Notes: Memoria 2-08 (Same as: l 20:05: Lasix) May [place] cause GI upset. Give with food or milk. Lasix 2017-0 No Notes: Memoria 2-08 (Same as: l 20:05: Lasix) May [place] 00 cause GI upset. Give with food or milk. Lasix 2017-0 No Notes: Memoria 2-08 (Same as: l 20:05: Lasix) May [place] cause GI upset. Give with food or milk. Lasix 2016-0 No Notes: Memoria 2-08 (Same as: l 20:05: Lasix) Octoberann cause GI upset. Give with food or milk. Lasix 2016-0 No Notes: Memoria 2-08 (Same as: l 20:05: Lasix) October Vin cause GI upset. Give with food or milk. Hydralazine 0 No Notes: [place] janice 2-08 (Same as: l 06:05: Apresoline [place] 00 ) Push over 5 minutes Hydralazine 2016-0 No Notes: [place] janice 2-08 (Same as: l 06:05: Apresoline [place] ) Push over 5 minutes Hydralazine No Notes: [place] janice 2-08 (Same as: l 06:05: Apresoline [place] ) Push over 5 minutes Hydralazine No Notes: [place] janice 2-08 (Same as: l 06:05: Apresoline [place] ) Push over 5 minutes Hydralazine 0 No Notes: [place] janice 2-08 (Same as: l 06:05: Apresoline [place] 00 ) Push over 5 minutes sodium 2017-0 No 1,000 mL, Memori a chloride 2-05 Rate: 125 l 0.9% 1000 18:26: ml/hr, Jake n ml INJ 00 Infuse 1,000 mL over: 8 hr, Route: IV, Dosing Weight 92.273 kg, Total Volume: 1,000, Start date: 07/26/16 12:26: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, Duration: 30 day, Stop date: 08/25/16 12:25: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 sodium 2017-0 No 1,000 mL, Memori a chloride 2-05 Rate: 125 l 0.9% 1000 18:26: ml/hr, Jake n ml INJ 00 Infuse 1,000 mL over: 8 hr, Route: IV, Dosing Weight 92.273 kg, Total Volume: 1,000, Start date: 07/26/16 12:26: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, Duration: 30 day, Stop date: 08/25/16 12:25: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 sodium 2017-0 No 1,000 mL, Memori a chloride 2-05 Rate: 125 l 0.9% 1000 18:26: ml/hr, Jake n ml INJ 00 Infuse 1,000 mL over: 8 hr, Route: IV, Dosing Weight 92.273 kg, Total Volume: 1,000, Start date: 07/26/16 12:26: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, Duration: 30 day, Stop date: 08/25/16 12:25: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 sodium 2017-0 No 1,000 mL, Memori a chloride 2-05 Rate: 125 l 0.9% 1000 18:26: ml/hr, Jake n ml INJ 00 Infuse 1,000 mL over: 8 hr, Route: IV, Dosing Weight 92.273 kg, Total Volume: 1,000, Start date: 07/26/16 12:26: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, Duration: 30 day, Stop date: 08/25/16 12:25: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 sodium 2017-0 No 1,000 mL, Memori a chloride 2-05 Rate: 125 l 0.9% 1000 18:26: ml/hr, Jake n ml INJ 00 Infuse 1,000 mL over: 8 hr, Route: IV, Dosing Weight 92.273 kg, Total Volume: 1,000, Start date: 07/26/16 12:26: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, Duration: 30 day, Stop date: 08/25/16 12:25: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 Sodium 2017-0 No 500 mL, Memoria Chloride 2-05 500 ml/hr, l 0.154 13:30: Infuse [place] MEQ/ML 00 Over: 1 Injectable hr, Route: Solution IV, 500, Drug form: INJ, ONCE, Priority: STAT, Dosing Weight 92.273 kg, Start date: 07/26/16 7:30: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, Duration: 1 doses or times, Stop date: 07/26/16 7:30: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 Sodium 2017-0 No 500 mL, Memoria Chloride 2-05 500 ml/hr, l 0.154 13:30: Infuse [place] MEQ/ML 00 Over: 1 Injectable hr, Route: Solution IV, 500, Drug form: INJ, ONCE, Priority: STAT, Dosing Weight 92.273 kg, Start date: 07/26/16 7:30: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, Duration: 1 doses or times, Stop date: 07/26/16 7:30: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 Sodium 2017-0 No 500 mL, Memoria Chloride 2-05 500 ml/hr, l 0.154 13:30: Infuse Vin MEQ/ML 00 Over: 1 Injectable hr, Route: Solution IV, 500, Drug form: INJ, ONCE, Priority: STAT, Dosing Weight 92.273 kg, Start date: 07/26/16 7:30: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, Duration: 1 doses or times, Stop date: 07/26/16 7:30: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 Sodium 2017-0 No 500 mL, Memoria Chloride 2-05 500 ml/hr, l 0.154 13:30: Infuse [place] MEQ/ML 00 Over: 1 Injectable hr, Route: Solution IV, 500, Drug form: INJ, ONCE, Priority: STAT, Dosing Weight 92.273 kg, Start date: 07/26/16 7:30: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, Duration: 1 doses or times, Stop date: 07/26/16 7:30: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 Sodium 2017-0 No 500 mL, Memoria Chloride 2-05 500 ml/hr, l 0.154 13:30: Infuse [place] MEQ/ML 00 Over: 1 Injectable hr, Route: Solution IV, 500, Drug form: INJ, ONCE, Priority: STAT, Dosing Weight 92.273 kg, Start date: 07/26/16 7:30: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, Duration: 1 doses or times, Stop date: 07/26/16 7:30: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 Insulin 2017-0 No 60 units) Mendoza janice regular 2-04 WASTE: F/P l 08:39: - Black; E [place] 00 - Municipal Trash Bin Stable for 28 days at room temperatur e Expires in days from ____Date Insulin 2017-0 No 60 units) Mendoza janice regular 2-04 WASTE: F/P l 08:39: - Black; E [place] 00 - Municipal Trash Bin Stable for 28 days at room temperatur e Expires in days from ____Date Insulin 2017-0 No 60 units) Mendoza janice regular 2-04 WASTE: F/P l 08:39: - Black; E [place] 00 - Municipal Trash Bin Stable for [...] Roll in l Human 07:31: palms of [place] 00 hands gently; Do not shake vigorously [...] Roll in l Human 07:31: palms of [place] 00 hands gently; Do not shake vigorously [...] Roll in l Human 05:42: palms of [place] 00 hands gently; Do not shake vigorously [...] Roll in l Human 03:28: palms of [place] 00 hands gently; Do not shake vigorously [...] sodium 2-04 (Same as: l 03:00: Depakote [place] 00 ER) Once daily dosing; indicated for [...] sodium 2-04 (Same as: l 03:00: Depakote [place] 00 ER) Once daily dosing; indicated for migraines. Divalproex sodium extended-r elease tab. Do not chew or crush. "Do Not Crush" atorvastati No Notes: Mendo[place] janice n 2-04 (Same as: l 03:00: Lipitor) divalproex No Notes: Memor ia sodium 2-04 (Same as: l 03:00: Depakote [place] 00 ER) Once daily dosing; indicated for [...] Memoria 2-03 (Same as: l 22:00: Lasix) [place] MEDICATION WASTE Product Size: 40 mg Product Wasted: ___ mg Lasix No Notes: Memoria 2-03 (Same as: l 22:00: Lasix) [place] 00 MEDICATION WASTE Product Size: 40 mg Product Wasted: ___ mg Lasix No Notes: Memoria 2-03 (Same as: l 22:00: Lasix) [place] 00 MEDICATION WASTE Product Size: 40 mg Product Wasted: ___ mg Tylenol No Notes: Max Mendoza janice 2-03 acetaminop l 21:52: hen = [place] 4000mg/day (4 gm/day). (Same as: Tylenol) Tylenol No Notes: Max Mendoza janice 2-03 acetaminop l 21:52: hen = [place] 00 4000mg/day (4 gm/day). (Same as: Tylenol) Tylenol No Notes: Max Mendoza janice 2-03 acetaminop l 21:52: hen = [place] 00 4000mg/day (4 gm/day). (Same as: Tylenol) [...] Weight 92.273, kg, Start date: 07/24/16 9:00: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, Duration: 30 day, Stop date: 08/22/16 9:00: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 24 HR No Notes: Memoria Divalproex [...] form: ERTAB, Daily, Start date: 07/24/16 9:00: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, Duration: 30 day, Stop date: 08/22/16 9:00: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 Insulin No Notes: Memoria Glargine 2-03 [...] oria 2-03 tab, l 15:00: Route: PO, [place] Drug form: ERTAB, Daily, Dosing Weight 92.273, kg, Start date: 07/24/16 9:00: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, Duration: 30 day, Stop date: 08/22/16 9:00: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 [place] 00 Lasix No Notes: Memoria 2-03 (Same as: l 15:00: Lasix) MEDICATION WASTE Product Size: 40 mg Product Wasted: ___ mg Zoloft No Notes: Memoria 2-03 (Same as: l 15:00: Zoloft) [place] Protonix No Notes: Memoria 2-03 Tablet l 15:00: should not [place] 00 be chewed or crushed. (Same as: Protonix) metoprolol No 100 mg, 2 Me moria extended 2-03 tab, l release 15:00: Route: PO, Herm naeem Drug form: ERTAB, Daily, Start date: 07/24/16 9:00: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, Duration: 30 day, Stop date: 08/22/16 9:00: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 Insulin No Notes: Memoria Glargine 2-03 [...] oria 2-03 tab, l 15:00: Route: PO, [place] Drug form: ERTAB, Daily, Dosing Weight 92.273, kg, Start date: 07/24/16 9:00: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, Duration: 30 day, Stop date: 08/22/16 9:00: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 24 HR No Notes: Memoria Divalproex [...] form: ERTAB, Daily, Start date: 07/24/16 9:00: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, Duration: 30 day, Stop date: 08/22/16 9:00: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 Insulin No Notes: Memoria Glargine 2-03 [...] oria 2-03 tab, l 15:00: Route: PO, [place] Drug form: ERTAB, Daily, Dosing Weight 92.273, kg, Start date: 07/24/16 9:00: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, Duration: 30 day, Stop date: 08/22/16 9:00: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 24 HR No Notes: Memoria Divalproex [...] form: ERTAB, Daily, Start date: 07/24/16 9:00: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, Duration: 30 day, Stop date: 08/22/16 9:00: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 Insulin No Notes: Memoria Glargine 2-03 [...] oria 2-03 tab, l 15:00: Route: PO, [place] Drug form: ERTAB, Daily, Dosing Weight 92.273, kg, Start date: 07/24/16 9:00: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, Duration: 30 day, Stop date: 08/22/16 9:00: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 [place] 00 Lasix No Notes: Memoria 2-03 (Same as: l 15:00: Lasix) MEDICATION WASTE Product Size: 40 mg Product Wasted: ___ mg Zoloft No Notes: Memoria 2-03 (Same as: l 15:00: Zoloft) [place] Protonix No Notes: Memoria 2-03 Tablet l 15:00: should not [place] 00 be chewed or crushed. (Same as: Protonix) metoprolol No 100 mg, 2 Me moria extended 2-03 tab, l release 15:00: Route: PO, Herm naeem Drug form: ERTAB, Daily, Start date: 07/24/16 9:00: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, Duration: 30 day, Stop date: 08/22/16 9:00: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 Insulin No Notes: Memoria Glargine 2-03 [...] Notes: Memoria 2-03 (Same l 14:50: as:MORPhin [place] 00 e Sulfate) Ondansetron No Notes: Mendoza ajnice 2-03 (Same as: l 14:50: Zofran) Vin [...] Notes: Memoria 2-03 (Same l 14:50: as:MORPhin [place] 00 e Sulfate) Insulin, No Notes: Memoria Aspart, 2-03 Roll in l Human 13:30: palms of [place] 00 hands gently; Do not shake vigorously . (Same as: NovoLOG) "single patient use only" WASTE: F/P - Black; E - Municipal Trash Bin Stable for 28 days at room temperatur e. Expires in days from ____Date Insulin, No Notes: Memoria Aspart, 2-03 Roll in l Human 13:30: palms of [place] 00 hands gently; Do not shake vigorously . (Same as: NovoLOG) "single patient use only" WASTE: F/P - Black; E - [facility] Trash Bin Stable for 28 days at room temperatur e. Expires in days from ____Date Insulin, No Notes: Memoria Aspart, 2-03 Roll in l Human 13:30: palms of [place] 00 hands gently; Do not shake vigorously [...] Roll in l Human 13:30: palms of [place] 00 hands gently; Do not shake vigorously . (Same as: NovoLOG) "single patient use only" WASTE: F/P - Black; E - [facility] Trash Bin Stable for 28 days at room temperatur e. Expires in days from ____Date Dilaudid No Notes: Memoria 2-03 Same as l 11:28: Dilaudid [place] 00 Dilaudid No Notes: Memoria 2-03 Same as l 11:28: Dilaudid Vin 00 Dilaudid No Notes: Memoria 2-03 Same as l 11:28: Dilaudid [place] 00 Dilaudid No Notes: Memoria 2-03 Same as l 11:28: Dilaudid Vin 00 Dilaudid No Notes: Memoria 2-03 Same as l 11:28: Dilaudid Vin 00 Insulin, No Notes: Memoria Aspart, 2-03 Roll in l Human 08:40: palms of [place] 00 hands gently; Do not shake vigorously . (Same as: NovoLOG) "single patient use only" WASTE: F/P - Black; E - [facility] Trash Bin Stable for 28 days at room temperatur e. Expires in days from ____Date Glucagon No 1 mg, Memoria 2-03 Route: IM, l 08:40: Drug form: [place] 00 PDR/INJ, PRN, Dosing Weight 92.273, kg, PRN Blood Glucose Results, Start date: 07/24/16 2:40: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, Duration: 30 day, Stop date: 08/23/16 2:39: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 Dextrose No 25 gm, 50 Mendoza janice 50% Syringe 2-03 mL, Route: l 08:40: IVP, Drug [place] 00 Form: INJ, Dosing Weight 92.273, kg, PRN, PRN Blood Glucose Results, Start date: 07/24/16 2:40: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, Duration: 30 day, Stop date: 08/23/16 2:39: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 Insulin, No Notes: Memoria Aspart, 2-03 Roll in l Human 08:40: palms of [place] 00 hands gently; Do not shake vigorously . (Same as: NovoLOG) "single patient use only" WASTE: F/P - Black; E - Municipal Trash Bin Stable for 28 days at room temperatur e. Expires in days from ____Date Glucagon 2017-0 No 1 mg, Memoria 2-03 Route: IM, l 08:40: Drug form: [place] 00 PDR/INJ, PRN, Dosing Weight 92.273, kg, PRN Blood Glucose Results, Start date: 07/24/16 2:40: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, Duration: 30 day, Stop date: 08/23/16 2:39: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 Dextrose 2017-0 No 25 gm, 50 Mendoza janice 50% Syringe 2-03 mL, Route: l 08:40: IVP, Drug [place] 00 Form: INJ, Dosing Weight 92.273, kg, PRN, PRN Blood Glucose Results, Start date: 07/24/16 2:40: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, Duration: 30 day, Stop date: 08/23/16 2:39: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 Insulin, 2016-0 No Notes: Memoria Aspart, 2-03 Roll in l Human 08:40: palms of [place] 00 hands gently; Do not shake vigorously [...] Blood Glucose Results, Start date: 07/24/16 2:40: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, Duration: 30 day, Stop date: 08/23/16 2:39: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 Dextrose 2017-0 No 25 gm, 50 Mendoza janice 50% Syringe 2-03 mL, Route: l 08:40: IVP, Drug [place] 00 Form: INJ, Dosing Weight 92.273, kg, PRN, PRN Blood Glucose Results, Start date: 07/24/16 2:40: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, Duration: 30 day, Stop date: 08/23/16 2:39: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 Insulin, 2017-0 No Notes: Memoria Aspart, 2-03 Roll in l Human 08:40: palms of [place] 00 hands gently; Do not shake vigorously [...] Blood Glucose Results, Start date: 07/24/16 2:40: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, Duration: 30 day, Stop date: 08/23/16 2:39: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 Dextrose 2017-0 No 25 gm, 50 Mendoza janice 50% Syringe 2-03 mL, Route: l 08:40: IVP, Drug [place] 00 Form: INJ, Dosing Weight 92.273, kg, PRN, PRN Blood Glucose Results, Start date: 07/24/16 2:40: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, Duration: 30 day, Stop date: 08/23/16 2:39: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 Insulin, 2017-0 No Notes: Memoria Aspart, 2-03 [...] Blood Glucose Results, Start date: 07/24/16 2:40: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, Duration: 30 day, Stop date: 08/23/16 2:39: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 Dextrose 2017-0 No 25 gm, 50 Mendoza janice 50% Syringe 2-03 mL, Route: l 08:40: IVP, Drug Vin 00 Form: INJ, Dosing Weight 92.273, kg, PRN, PRN Blood Glucose Results, Start date: 07/24/16 2:40: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, Duration: 30 day, Stop date: 08/23/16 2:39: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 Docusate 2016- No Notes: Memoria 2-03 (Same as: l 07:20: Colace) Vin 00 (Do Not Crush) Ondansetron No Notes: Mendoza janice 2-03 (Same as: l 07:20: Zofran) [place] 00 MEDICATION WASTE Product Size: 4 mg Product Wasted: ___ mg Docusate 2016- No Notes: Memoria 2-03 (Same as: l 07:20: Colace) [place] 00 (Do Not Crush) Ondansetron 2016- No Notes: Mendoza janice 2-03 (Same as: l 07:20: Zofran) [place] 00 MEDICATION WASTE Product Size: 4 mg Product Wasted: ___ mg Docusate 2016- No Notes: Memoria 2-03 (Same as: l 07:20: Colace) [place] 00 (Do Not Crush) Ondansetron No Notes: Mendoza janice 2-03 (Same as: l 07:20: Zofran) [place] 00 MEDICATION WASTE Product Size: 4 mg Product Wasted: ___ mg Docusate 2016-0 No Notes: Memoria 2-03 (Same as: l 07:20: Colace) [place] 00 (Do Not Crush) Ondansetron 2016-0 No Notes: Mendoza janice 2-03 (Same as: l 07:20: Zofran) Vin 00 MEDICATION WASTE Product Size: 4 mg Product Wasted: ___ mg Docusate 2016-0 No Notes: Memoria 2-03 (Same as: l 07:20: Colace) [place] 00 (Do Not Crush) Ondansetron 2016-0 No Notes: Mendoza janice 2-03 (Same as: l 07:20: Zofran) [place] 00 MEDICATION WASTE Product Size: 4 mg Product Wasted: ___ mg Lasix 2016-0 No Notes: Memoria 2-03 (Same as: l 06:01: Lasix) [place] 00 MEDICATION WASTE Product Size: 40 mg Product Wasted: ___ mg Lasix No Notes: Memoria 2-03 (Same as: l 06:01: Lasix) Vin 00 MEDICATION WASTE Product Size: 40 mg Product Wasted: ___ mg Lasix No Notes: Memoria 2-03 (Same as: l 06:01: Lasix) [place] 00 MEDICATION WASTE Product Size: 40 mg Product Wasted: ___ mg Lasix No Notes: Memoria 2-03 (Same as: l 06:01: Lasix) Vin 00 MEDICATION WASTE Product Size: 40 mg Product Wasted: ___ mg Lasix No Notes: Memoria 2-03 (Same as: l 06:01: Lasix) [place] 00 MEDICATION WASTE Product Size: 40 mg [...] 2-03 (Same as: l / 04:09: Duoneb) [place] Ipratropium 00 [place] 0.167 MG/ML Inhalant Solution [DuoNeb] Albuterol No Notes: Memori a 0.833 MG/ML - (Same as: :: Duoneb) [place] Ipratropium 00 [place] 0.167 MG/ML Inhalant Solution [DuoNeb] Albuterol No Notes: Memori a 0.833 MG/ML 2- (Same as: :: Duoneb) [place] Ipratropium 00 [place] 0.167 MG/ML Inhalant Solution [DuoNeb] Albuterol No Notes: Memori a 0.833 MG/ML 2- (Same as: :: Duoneb) [place] Ipratropium 00 [place] 0.167 MG/ML Inhalant Solution [DuoNeb] Albuterol No Notes: Memori a 0.833 MG/ML - (Same as: :: Duoneb) Vin Ipratropium 00 [place] 0.167 MG/ML Inhalant Solution [DuoNeb] Furosemide 2015-06 [...] PO, l oral tablet 16:34: Bedtime, # [place] 00 30 tab, 0 Refill(s) Insulin 2015-06 [...] INHALATION l 0.09 16:34: , PRN, PRN [place] MG/ACTUAT 00 as needed Metered for Dose wheezing, Inhaler use as needed for shortness of breath or wheezing, # 8 gm, 0 Refill(s) Aspirin 81 2015-06 Yes 81 mg = 1 Me moria MG Chewable 2-26 tab, PO, l Tablet 16:34: Daily, # [place] 00 30 tab, 0 Refill(s) Hydroxyzine 2015-06 Yes 50 mg = 1 M emoria Hydrochlori 2-26 cap, PO, l de 50 MG 16:34: TID, X 30 Herm naeem Oral 00 day, # 90 Capsule cap, 0 Refill(s) losartan 25 2015-06 Yes 25 mg = 1 M emoria mg oral 2-26 tab, PO, l tablet 16:34: Daily, # [place] 00 30 tab, 0 Refill(s) Furosemide 2015-06 Yes 80 mg = 2 Me moria 40 MG Oral 2-26 tab, PO, l Tablet 16:34: BID, # 120 Nidia nn 00 tab, 0 Refill(s) atorvastati 2015-06 Yes 40 mg = 1 M emoria n 40 mg 2-26 tab, PO, l oral tablet 16:34: Bedtime, # [place] 00 30 tab, 0 Refill(s) Insulin 2015-06 [...] INHALATION l 0.09 16:34: , PRN, PRN [place] MG/ACTUAT 00 as needed Metered for Dose wheezing, Inhaler use as needed for shortness of breath or wheezing, # 8 gm, 0 Refill(s) Aspirin 81 2015-06 Yes 81 mg = 1 Me moria MG Chewable 2-26 tab, PO, l Tablet 16:34: Daily, # [place] 00 30 tab, 0 Refill(s) Hydroxyzine 2015-06 [...] tab, PO, l tablet 16:34: Daily, # [place] 00 30 tab, 0 Refill(s) Furosemide 2015-06 [...] INHALATION l 0.09 16:34: , PRN, PRN [place] MG/ACTUAT 00 as needed Metered for Dose [...] 2-26 (Same as: l 15:00: Lasix) October [place] 00 cause GI upset. Give with food or milk. Lasix 2015-06 No Notes: Memoria 2-26 (Same as: l 15:00: Lasix) October [place] 00 cause GI upset. Give with food or milk. Lasix 2015-06 No Notes: Memoria 2-26 (Same as: l 15:00: Lasix) October [place] 00 cause GI upset. Give with food or milk. Lasix 2015-06 No Notes: Memoria 2-26 (Same as: l 15:00: Lasix) October [place] 00 cause GI upset. Give with food or milk. Lasix 2015-06 No Notes: Memoria 2-26 (Same as: l 15:00: Lasix) October [place] cause GI upset. Give with food or milk. Magnesium 2015-06 No Notes: Memori a Oxide 2-24 (Same as: l 13:36: Mag-Ox [place] 00 400) Magnesium oxide 497re=897j g elemental magnesium Dose=____m g magnesium oxide (___mg elemental magnesium) Magnesium 2015-06 No Notes: Memori a Oxide 2-24 (Same as: l 13:36: Mag-Ox [place] 00 400) Magnesium oxide 055js=819d g elemental magnesium Dose=____m g magnesium oxide (___mg elemental magnesium) Magnesium 2015-06 No Notes: Memori a Oxide 2-24 (Same as: l 13:36: Mag-Ox [place] 00 400) Magnesium oxide 672hw=445l g elemental magnesium Dose=____m g magnesium oxide (___mg elemental magnesium) Magnesium 2015-06 No Notes: Memori a Oxide 2-24 (Same as: l 13:36: Mag-Ox [place] 00 400) Magnesium oxide 461gk=060l g elemental magnesium Dose=____m g magnesium oxide (___mg elemental magnesium) Magnesium 2015-06 No Notes: Memori a Oxide 2-24 (Same as: l 13:36: Mag-Ox [place] 400) Magnesium oxide 679bu=965e g elemental magnesium Dose=____m g magnesium oxide (___mg elemental magnesium) Magnesium 2015-06 No Notes: Memori a Oxide 2-24 (Same as: l 09:47: [facility]-Ox [place] 400) Magnesium oxide 075ee=373l g elemental magnesium Dose=____m g magnesium oxide (___mg elemental magnesium) Magnesium 2015-06 No Notes: Memori a Oxide 2-24 (Same as: l 09:47: [facility]-Ox Vin 400) Magnesium oxide 095po=586n g elemental magnesium Dose=____m g magnesium oxide (___mg elemental magnesium) Magnesium 2015-06 No Notes: Memori a Oxide 2-24 (Same as: l 09:47: [facility]-Ox [place] 400) Magnesium oxide 172va=868n g elemental magnesium Dose=____m g magnesium oxide (___mg elemental magnesium) Magnesium 2015-06 No Notes: Memori a Oxide 2-24 (Same as: l 09:47: [facility]-Ox [place] 400) Magnesium oxide 697zb=319z g elemental magnesium Dose=____m g magnesium oxide (___mg elemental magnesium) Magnesium 2015-06 No Notes: Memori a Oxide 2-24 (Same as: l 09:47: [facility]-Ox [place] 400) Magnesium oxide 405tc=721i g elemental magnesium Dose=____m g magnesium oxide [...] XL 2-24 (Same as: l 00:00: Wellbutrin [place] 00 XL) "Do Not Crush" Norvasc 2015-06 No Notes: Memoria 2-24 (Same as: l 00:00: Norvasc) [place] 00 Wellbutrin 2015-06 No Notes: Memor ia XL 2-24 (Same as: l 00:00: Wellbutrin [place] 00 XL) "Do Not Crush" Norvasc 2015-06 No Notes: Memoria 2-24 (Same as: l 00:00: Norvasc) Vin 00 Wellbutrin 2015-06 No Notes: Memor ia XL 2-24 (Same as: l 00:00: Wellbutrin [place] 00 XL) "Do Not Crush" Norvasc 2015-06 No Notes: Memoria 2-24 (Same as: l 00:00: Norvasc) Vin 00 Wellbutrin 2015-06 No Notes: Memor ia XL 2-24 (Same as: l 00:00: Wellbutrin [place] 00 XL) "Do Not Crush" Norvasc 2015-06 No Notes: Memoria 2-24 (Same as: l 00:00: Norvasc) [place] 00 Wellbutrin 2015-06 No Notes: Memor ia XL 2-24 (Same as: l 00:00: Wellbutrin [place] 00 XL) "Do Not Crush" Norvasc 2015-06 [...] prescriber WASTE: F/P - Black; E - [facility] Trash Bin 1 ML 2015-06 Yes IM, [...] tab, PO, l tablet 15:35: Daily, 0 [place] 00 Refill(s) pravastatin 2015-06 No 40 mg = 1 M emoria 40 mg oral 2-23 tab, PO, l tablet 15:35: Daily, 0 Vin 00 Refill(s) amLODIPine 2015-06 No 10 mg = 1 Me moria 10 mg oral 2-23 tab, PO, l tablet 15:35: Daily, 0 [place] 00 Refill(s) pravastatin 2015-06 No 40 mg = 1 M emoria 40 mg oral 2-23 tab, PO, l tablet 15:35: Daily, 0 Vin 00 Refill(s) amLODIPine 2015-06 No 10 mg = 1 Me moria 10 mg oral 2-23 tab, PO, l tablet 15:35: Daily, 0 [place] 00 Refill(s) pravastatin 2015-06 No 40 mg [...] tab, PO, l tablet 15:35: Daily, 0 Vni 00 Refill(s) pravastatin 2015-06 No 40 mg = 1 M emoria 40 mg oral 2-23 tab, PO, l tablet 15:35: Daily, 0 Vin 00 Refill(s) Sertraline 2015-06 Yes 200 mg = 2 M emoria 100 MG Oral 2-23 tab, PO, l Tablet 15:27: Daily, 0 [place] [Zoloft] 00 Refill(s) pantoprazol 2015-06 Yes 40 mg = 1 M emoria e 40 MG 2-23 tab, PO, l Enteric 15:27: Daily, 0 Jake n Coated 00 Refill(s) Tablet [Protonix] gabapentin 2015-06 Yes 1 CAP PO Mem oria 300 MG Oral 2-23 BID AND 1 l Capsule 15:27: CAP AT [place] 00 BEDTIME, 0 Refill(s) Insulin, 2015-06 No [...] tab, PO, l Tablet 15:27: Daily, 0 [place] [Zoloft] 00 Refill(s) pantoprazol 2015-06 Yes 40 mg = 1 M emoria e 40 MG 2-23 tab, PO, l Enteric 15:27: Daily, 0 Jake n Coated 00 Refill(s) Tablet [Protonix] gabapentin 2015-06 Yes 1 CAP PO Mem oria 300 MG Oral 2-23 BID AND 1 l Capsule 15:27: CAP AT [place] 00 BEDTIME, 0 Refill(s) Insulin, 2015-06 No [...] tab, PO, l Tablet 15:27: Daily, 0 [place] [Zoloft] 00 Refill(s) pantoprazol 2015-06 Yes 40 [...] AND 1 l Capsule 15:27: CAP AT [place] 00 BEDTIME, 0 Refill(s) Insulin, 2015-06 No [...] Memori a 2-22 (Same l 19:00: as:Chronul [place]) Lactulose 2015-06 No Notes: Memori a 2-22 [...] Weight 86.364, kg, Start date: 06/11/16 9:00: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, Duration: 30 day, Stop date: 07/10/16 9:00: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 Insulin 2015-06 No Notes: Memoria Glargine [...] Weight 86.364, kg, Start date: 06/11/16 9:00: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, Duration: 30 day, Stop date: 07/10/16 9:00: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 Insulin 2015-06 No Notes: Memoria Glargine [...] Weight 86.364, kg, Start date: 06/11/16 9:00: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, Duration: 30 day, Stop date: 07/10/16 9:00: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 Insulin 2015-06 No Notes: Memoria Glargine [...] Weight 86.364, kg, Start date: 06/11/16 9:00: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, Duration: 30 day, Stop date: 07/10/16 9:00: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 Insulin 2015-06 No Notes: Memoria Glargine [...] Weight 86.364, kg, Start date: 06/11/16 9:00: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, Duration: 30 day, Stop date: 07/10/16 9:00: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 Insulin 2015-06 No Notes: Memoria Glargine [...] Roll in l Human 12:55: palms of [place] 00 hands gently; Do not shake vigorously [...] Roll in l Human 12:55: palms of [place] 00 hands gently; Do not shake vigorously . (Same as: NovoLOG) "single patient use only" WASTE: F/P - Black; E - Municipal Trash Bin Stable for 28 days at room temperatur e. Expires in days from ____Date Insulin, 2015-06 No Notes: Memoria Aspart, 2-22 Roll in l Human 12:55: palms of [place] 00 hands gently; Do not shake vigorously . (Same as: NovoLOG) "single patient use only" WASTE: F/P - Black; E - Municipal Trash Bin Stable for 28 days at room temperatur e. Expires in days from ____Date heparin 2015-06 No Notes: Memoria sodium, 2-22 porcine l porcine 06:00: heparin [place] 2500 UNT/ML 00 Injectable Solution heparin 2015-06 No Notes: Memoria sodium, 2-22 porcine l porcine 06:00: heparin [place] 2500 UNT/ML 00 Injectable Solution heparin 2015-06 No Notes: Memoria sodium, 2-22 porcine l porcine 06:00: heparin [place] 2500 UNT/ML 00 Injectable Solution heparin 2015-06 No Notes: Memoria sodium, 2-22 porcine l porcine 06:00: heparin [place] 2500 UNT/ML 00 Injectable Solution heparin 2015-06 No Notes: Memoria sodium, 2-22 porcine l porcine 06:00: heparin Vin 2500 UNT/ML 00 Injectable Solution Albuterol 2015-06 No Notes: Memori a 0.833 MG/ML 2-22 (Same as: l / 03:00: Duoneb) Vin Ipratropium 00 [place] 0.167 MG/ML Inhalant Solution [DuoNeb] gabapentin 2015-06 No 300 mg, Mendoza janice 300 MG Oral 2-22 Route: PO, l Capsule 03:00: Drug form: Herm naeem 00 CAP, Q12H, Dosing Weight 86.364, kg, (CrCl 30 - 59 ml/min), Start date: 06/10/16 21:00: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, Duration: 30 day, Stop date: 07/10/16 9:00: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 divalproex 2015-06 No Notes: Memor ia sodium 2-22 (Same as: l 03:00: Depakote [place] 00 ER) Once daily dosing; indicated for migraines. Divalproex sodium extended-r elease tab. Do not chew or crush. "Do Not Crush" Losartan 2015-06 No Notes: Memoria 2-22 (Same as: l 03:00: Cozaar) [place] 00 Albuterol 2015-06 No Notes: Memori a 0.833 MG/ML 2-22 (Same as: l / 03:00: Duoneb) Vin Ipratropium 00 [place] 0.167 MG/ML Inhalant Solution [DuoNeb] gabapentin 2015-06 No 300 mg, Mendoza janice 300 MG Oral 2-22 Route: PO, l Capsule 03:00: Drug form: Herm naeem 00 CAP, Q12H, Dosing Weight 86.364, kg, (CrCl 30 - 59 ml/min), Start date: 06/10/16 21:00: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, Duration: 30 day, Stop date: 07/10/16 9:00: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 divalproex 2015-06 No Notes: Memor ia sodium 2-22 (Same as: l 03:00: Depakote [place] 00 ER) Once daily dosing; indicated for migraines. Divalproex sodium extended-r elease tab. Do not chew or crush. "Do Not Crush" Losartan 2015-06 No Notes: Memoria 2-22 (Same as: l 03:00: Cozaar) Vin 00 Albuterol 2015-06 No Notes: Memori a 0.833 MG/ML 2-22 (Same as: 03:00: Duoneb) [place] Ipratropium 00 [place] 0.167 MG/ML Inhalant Solution [DuoNeb] gabapentin 2015-06 No 300 mg, Mendoza janice 300 MG Oral 2-22 Route: PO, l Capsule 03:00: Drug form: Herm naeem 00 CAP, Q12H, Dosing Weight 86.364, kg, (CrCl 30 - 59 ml/min), Start date: 06/10/16 21:00: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, Duration: 30 day, Stop date: 07/10/16 9:00: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 divalproex 2015-06 No Notes: Memor ia sodium 2-22 (Same as: l 03:00: Depakote [place] 00 ER) Once daily dosing; indicated for migraines. Divalproex sodium extended-r elease tab. Do not chew or crush. "Do Not Crush" Losartan 2015-06 No Notes: Memoria 2-22 (Same as: l 03:00: Cozaar) Vin 00 Albuterol 2015-06 No Notes: Memori a 0.833 MG/ML 2-22 (Same as: 03:00: Duoneb) [place] Ipratropium 00 [place] 0.167 MG/ML Inhalant Solution [DuoNeb] gabapentin 2015-06 No 300 mg, Mendoza janice 300 MG Oral 2-22 Route: PO, l Capsule 03:00: Drug form: Herm naeem 00 CAP, Q12H, Dosing Weight 86.364, kg, (CrCl 30 - 59 ml/min), Start date: 06/10/16 21:00: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, Duration: 30 day, Stop date: 07/10/16 9:00: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 divalproex 2015-06 No Notes: Memor ia sodium 2-22 (Same as: l 03:00: Depakote [place] 00 ER) Once daily dosing; indicated for migraines. Divalproex sodium extended-r elease tab. Do not chew or crush. "Do Not Crush" Losartan 2015-06 No Notes: Memoria 2-22 (Same as: l 03:00: Cozaar) [place] 00 Albuterol 2015-06 No Notes: Memori a 0.833 MG/ML -22 (Same as: 03:00: Duoneb) Ipratropium 00 [place] 0.167 MG/ML Inhalant Solution [DuoNeb] gabapentin 2015-06 No 300 mg, Mendoza janice 300 MG Oral 2-22 Route: PO, l Capsule 03:00: Drug form: Herm CAP, Q12H, Dosing Weight 86.364, kg, (CrCl 30 - 59 ml/min), Start date: 06/10/16 21:00: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, Duration: 30 day, Stop date: 07/10/16 9:00: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 divalproex 2015-06 No Notes: Memor ia [...] Blood Glucose Results, Start date: 06/10/16 18:50: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, Duration: 30 day, Stop date: 07/10/16 18:49: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 Glucagon 2015-06 No 1 mg, Memoria 2-22 Route: IM, l 00:50: Drug form: PDR/INJ, PRN, Dosing Weight 86.364, kg, PRN Blood Glucose Results, Start date: 06/10/16 18:50: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, Duration: 30 day, Stop date: 07/10/16 18:49: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 Insulin, 2015-06 No Notes: Memoria Aspart, 2-22 [...] Syringe 2-22 25 mL, l 00:50: Route: [place] 00 IVP, Drug Form: INJ, Dosing Weight 86.364, kg, PRN, PRN Blood Glucose Results, Start date: 06/10/16 18:50: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, Duration: 30 day, Stop date: 07/10/16 18:49: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 Glucagon 2015-06 No 1 mg, Memoria 2-22 Route: IM, l 00:50: Drug form: Vin 00 PDR/INJ, PRN, Dosing Weight 86.364, kg, PRN Blood Glucose Results, Start date: 06/10/16 18:50: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, Duration: 30 day, Stop date: 07/10/16 18:49: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 Insulin, 2015-06 No Notes: Memoria Aspart, 2-22 Roll in l Human 00:50: palms of [place] 00 hands gently; Do not shake vigorously [...] Blood Glucose Results, Start date: 06/10/16 18:50: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, Duration: 30 day, Stop date: 07/10/16 18:49: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 Glucagon 2015-06 No 1 mg, Memoria 2-22 Route: IM, l 00:50: Drug form: [place] 00 PDR/INJ, PRN, Dosing Weight 86.364, kg, PRN Blood Glucose Results, Start date: 06/10/16 18:50: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, Duration: 30 day, Stop date: 07/10/16 18:49: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 Insulin, 2015-06 No Notes: Memoria Aspart, 2-22 Roll in l Human 00:50: palms of [place] 00 hands gently; Do not shake vigorously . (Same as: NovoLOG) "single patient use only" WASTE: F/P - Black; E - [facility] Trash Bin Stable for 28 days at room temperatur e. Expires in days from ____Date Dextrose 2015-06 No 12.5 gm, Memor ia 50% Syringe 2-22 25 mL, l 00:50: Route: [place] 00 IVP, Drug Form: INJ, Dosing Weight 86.364, kg, PRN, PRN Blood Glucose Results, Start date: 06/10/16 18:50: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, Duration: 30 day, Stop date: 07/10/16 18:49: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 Glucagon 2015-06 No 1 mg, Memoria 2-22 Route: IM, l 00:50: Drug form: Vin 00 PDR/INJ, PRN, Dosing Weight 86.364, kg, PRN Blood Glucose Results, Start date: 06/10/16 18:50: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, Duration: 30 day, Stop date: 07/10/16 18:49: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 Insulin, 2015-06 No Notes: Memoria Aspart, 2-22 [...] Blood Glucose Results, Start date: 06/10/16 18:50: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, Duration: 30 day, Stop date: 07/10/16 18:49: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 Glucagon 2015-06 No 1 mg, Memoria 2-22 Route: IM, l 00:50: Drug form: Vin 00 PDR/INJ, PRN, Dosing Weight 86.364, kg, PRN Blood Glucose Results, Start date: 06/10/16 18:50: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, Duration: 30 day, Stop date: 07/10/16 18:49: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 Hydralazine 2015-06 No Notes: Mendoza janice 2-22 (Same as: l 00:36: Apresoline [place] 00 ) Push over 5 minutes Hydralazine 2015-06 No Notes: Mendoza janice 2-22 (Same as: l 00:36: Apresoline Vin 00 ) Push over 5 minutes Hydralazine 2015-06 No Notes: Mendoza janice 2-22 (Same as: l 00:36: Apresoline [place] 00 ) Push over 5 minutes Hydralazine 2015-06 No Notes: Mendoza janice 2-22 (Same as: l 00:36: Apresoline [place] 00 ) Push over 5 minutes Hydralazine 2015-06 No Notes: Mendoza janice 2-22 (Same as: l 00:36: Apresoline [place] 00 ) Push over 5 minutes Hydralazine [...] janice 2-22 (Same as: l 00:34: Apresoline [place] 00 ) May interfere w/enteral feedings Take With Food Hydralazine 2015-06 No Notes: Mendoza janice 2-22 (Same as: l 00:34: Apresoline [place] ) May interfere w/enteral feedings Take With [...] Weight 86.364, kg, Start date: 06/10/16 18:06: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, Stop date: 06/10/16 18:06: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 Hydralazine 2015-06 No 10 mg, Mendoza janice 2-22 Route: IV, l 00:06: ONCE, Dosing Weight 86.364, kg, Start date: 06/10/16 18:06: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, Stop date: 06/10/16 18:06: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 Hydralazine 2015-06 No 10 mg, Mendoza janice 2-22 Route: IV, l 00:06: ONCE, Dosing Weight 86.364, kg, Start date: 06/10/16 18:06: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, Stop date: 06/10/16 18:06: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 Hydralazine 2015-06 No 10 mg, Mendoza janice 2-22 Route: IV, l 00:06: ONCE, Dosing Weight 86.364, kg, Start date: 06/10/16 18:06: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, Stop date: 06/10/16 18:06: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 Hydralazine 2015-06 No 10 mg, Mendoza janice 2-22 Route: IV, l 00:06: ONCE, Vin Dosing Weight 86.364, kg, Start date: 06/10/16 18:06: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, Stop date: 06/10/16 18:06: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 hydrOXYzine 2015-06 No Notes: Mendoza janice [...] ia 2-21 Route: l 22:32: IVP, Drug [place] 00 form: INJ, ONCE, Dosing Weight 86.364, kg, Start date: 06/10/16 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, Stop date: 06/10/16 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 Furosemide 2015-06 No 60 mg, Memor ia 2-21 Route: l 22:32: IVP, Drug Vin 00 form: INJ, ONCE, Dosing Weight 86.364, kg, Start date: 06/10/16 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, Stop date: 06/10/16 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 Furosemide 2015-06 No 60 mg, Memor ia 2-21 Route: l 22:32: IVP, Drug [place] 00 form: INJ, ONCE, Dosing Weight 86.364, kg, 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: 06/10/16 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, Stop date: 06/10/16 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 Furosemide 2015-06 No 60 mg, Memor ia 2-21 Route: l 22:32: IVP, Drug Vin 00 form: INJ, ONCE, Dosing Weight 86.364, kg, Start date: 06/10/16 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, Stop date: 06/10/16 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 Furosemide 2015-06 No 60 mg, Memor ia 08-11 Route: l 22:32: IVP, Drug Vin 00 form: INJ, ONCE, Dosing Weight 86.364, kg, Start date: 06/10/16 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, Stop date: 06/10/16 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 Lasix 2015-06 No Notes: Memoria 08-11 (Same as: l 17:22: Lasix) Vin 00 MEDICATION WASTE Product Size: 40 mg Product Wasted: _0__ mg Albuterol 2015-06 No Notes: Memori a 0.833 MG/ML - (Same as: :22: Duoneb) Vin Ipratropium 00 [place] 0.167 MG/ML Inhalant Solution [DuoNeb] Lasix 2015-06 No Notes: Memoria 08-11 (Same as: l :22: Lasix) Vin 00 MEDICATION WASTE Product Size: 40 mg Product Wasted: _0__ mg Albuterol 2015-06 No Notes: Memori a 0.833 MG/ML - (Same as: : Duoneb) Vin Ipratropium 00 [place] 0.167 MG/ML Inhalant Solution [DuoNeb] Lasix 2015-06 No Notes: Memoria 08-11 (Same as: l 17:22: Lasix) [place] 00 MEDICATION WASTE Product Size: 40 mg Product Wasted: _0__ mg Albuterol 2015-06 No Notes: Memori a 0.833 MG/ML -21 (Same as: :22: Duoneb) Vin Ipratropium 00 [place] 0.167 MG/ML Inhalant Solution [DuoNeb] Lasix 2015-06 No Notes: Memoria 2-21 (Same as: l 17:22: Lasix) [place] 00 MEDICATION WASTE Product Size: 40 mg Product Wasted: _0__ mg Albuterol 2015-06 No Notes: Memori a 0.833 MG/ML 2-21 (Same as: l / 17:: Duoneb) Vin Ipratropium 00 [place] 0.167 MG/ML Inhalant Solution [DuoNeb] Lasix 2015-06 No Notes: Memoria 08-11 (Same as: 17:22: Lasix) [place] 00 MEDICATION WASTE Product Size: 40 mg Product Wasted: _0__ mg Albuterol 2015-06 No Notes: Memori a 0.833 MG/ML 08-11 (Same as: 17:22: Duoneb) Vin Ipratropium 00 [place] 0.167 MG/ML Inhalant Solution [DuoNeb] Promethazin Yes 25 mg = 1 M emoria e 1-06 supp, DC, l Hydrochlori 14:45: Q6H, Jake n de 25 MG 00 Nausea & Rectal Vomiting, Suppository # 9 supp, [Phenergan] 0 Refill(s) Promethazin Yes 25 mg = 1 M emoria e 1-06 supp, DC, l Hydrochlori 14:45: Q6H, Jake n de 25 MG 00 Nausea & Rectal Vomiting, Suppository # 9 supp, [Phenergan] 0 Refill(s) Promethazin Yes 25 mg = 1 M emoria e 1-06 supp, DC, l Hydrochlori 14:45: Q6H, Jake n de 25 MG 00 Nausea & Rectal Vomiting, Suppository # 9 supp, [Phenergan] 0 Refill(s) Promethazin Yes 25 mg = 1 M emoria e 1-06 supp, DC, l Hydrochlori 14:45: Q6H, Jake n de 25 MG 00 Nausea & Rectal Vomiting, Suppository # 9 supp, [Phenergan] 0 Refill(s) Promethazin Yes 25 mg = 1 M emoria e 1-06 supp, DC, l Hydrochlori 14:45: Q6H, Jake n de [...] ne 06-26 Same as: l 11:48: Dilaudid [place] Hydromorpho No Notes: Mendoza janice ne 06-26 Same as: l 11:48: Dilaudid Vin Hydromorpho No Notes: Mendoza janice ne 06 Same as: l 11:48: Dilaudid [place] 00 Hydromorpho No Notes: Mendoza janice ne 06-26 Same as: l 11:48: Dilaudid Vin Hydromorpho No Notes: Mendoza janice ne 06 Same as: l 11:48: Dilaudid Vin hydrOXYzine Yes 0 Memori a pamoate 1-06 Refill(s) l 11:18: [place] Dicyclomine Yes 0 Memori a 1-06 Refill(s) l 11:18: Vin 00 hydrOXYzine Yes 0 Memori a pamoate 1-06 Refill(s) l 11:18: [place] Dicyclomine Yes 0 Memori a 1-06 Refill(s) l 11:18: [place] hydrOXYzine Yes 0 Memori a pamoate 1-06 Refill(s) l 11:18: [place] Dicyclomine Yes 0 Memori a 1-06 Refill(s) l 11:18: hydrOXYzine 2015-0 Yes 0 Memori a pamoate 1-06 Refill(s) l 11:18: [place] 00 Dicyclomine 2015-0 Yes 0 Memori a 1-06 Refill(s) l 11:18: [place] 00 hydrOXYzine 2015-0 Yes 0 Memori a [...] 11:17: Metoclopram 2015-0 Yes 0 Memori a gadile 1-06 Refill(s) l 11:17: Ondansetron 2015-0 Yes [...] Chloride 1-06 1,000 l 0.154 10:56: ml/hr, [place] MEQ/ML 00 Infuse Injectable Over: 2 Solution hr, Route: IV, 2,000, Drug form: INJ, ONCE, Priority: STAT, Dosing Weight 75 kg, Start date: 06/26/14 4:56:00, Duration: 1 doses or times, Stop date: 06/26/14 4:56:00 Lorazepam 0 No Notes: Memori a 1-06 (Same as: l 10:56: Ativan) Sodium No 2,000 mL, Memori a Chloride 1 1,000 l 0.154 10:56: ml/hr, Vin MEQ/ML 00 Infuse Injectable Over: 2 Solution hr, Route: IV, 2,000, Drug form: INJ, ONCE, Priority: STAT, Dosing Weight 75 kg, Start date: 06/26/14 4:56:00, Duration: 1 doses or times, Stop date: 06/26/14 4:56:00 Lorazepam 0 No Notes: Memori a 1-06 (Same as: l 10:56: Ativan) Sodium No 2,000 mL, Memori a Chloride 106 1,000 l 0.154 10:56: ml/hr, [place] MEQ/ML 00 Infuse Injectable Over: 2 Solution hr, Route: IV, 2,000, Drug form: INJ, ONCE, Priority: STAT, Dosing Weight 75 kg, Start date: 06/26/14 4:56:00, Duration: 1 doses or times, Stop date: 06/26/14 4:56:00 Lorazepam 0 No Notes: Memori a 1-06 (Same as: l 10:56: Ativan) Metoclopram No Notes: Mendoza janice gadiel 1- (Same as: l 10:55: Reglan) Metoclopram No Notes: Mendoza janice gadiel 06-26 (Same as: l 10:55: Reglan) Metoclopram No Notes: Mendoza janice gadiel 06-26 (Same as: l 10:55: Reglan) Metoclopram No Notes: Mendoza janice gadiel 06-26 (Same as: l 10:55: Reglan) Metoclopram No Notes: Mendoza janice gadile 06-26 (Same as: l 10:55: Reglan) Zofran [...] Substituti on AllowedDis solve tab under tongue Sodium 2012-06 No Matthew Gary 1,000 mL, M emoria Chloride 0-26 Marry Rate: 125 l 0.9% IV 04:10: ml/hr, [place] 1,000 mL 00 Infuse over: 8 hr, [...] Rate: 125 l 0.9% IV 04:10: ml/hr, [place] 1,000 mL 00 Infuse over: 8 hr, [...] Rate: 125 l 0.9% IV 04:10: ml/hr, [place] 1,000 mL 00 Infuse over: 8 hr, [...] date: 04/14/13 23:10:00, Stop date: 04/14/13 23:10:00 morphine 2011- No Hung Murillo 5 mg, [...] 9-25 Marx Route: l 01:15: IVP, ONCE, [place] 00 Dosing Weight 58.636, kg, Priority: STAT, Start date: 03/14/12 20:15:00, Stop date: 03/14/12 20:15:00 morphine 2011-0 No Hung Murillo 5 mg, Me moria Sulfate 9-25 Marx Route: l 01:15: IVP, ONCE, Dosing Weight 58.636, kg, Priority: STAT, Start date: 03/14/12 20:15:00, Stop date: 03/14/12 20:15:00 morphine 2012-0 No Hung Murillo 5 mg, Me moria Sulfate 9-25 Marx Route: l 01:15: IVP, ONCE, [place] 00 Dosing Weight 58.636, kg, Priority: STAT, Start date: 03/14/12 20:15:00, Stop date: 03/14/12 20:15:00 Sodium 2012-0 No Hung Murillo 500 mL, Me moria Chloride 9-24 Marx Rate: 500 l 0.9% 23:45: ml/hr, [place] (Bolus) IV 00 Infuse 500 mL over: 1 hr, Route: IV, kg, Total Volume: 500, Bolus Dose, Priority: STAT, Start date: 03/14/12 18:45:00, Duration: 1 doses or times, Stop date: 03/14/12 19:44:00 Sodium 2012-0 No Hung Murillo 500 mL, Me moria Chloride 9-24 Marx Rate: 500 l 0.9% 23:45: ml/hr, [place] (Bolus) IV 00 Infuse 500 mL over: [...] Marx Route: l 22:19: IVP, ONCE, Vin Dosing Weight 58.636, kg, Priority: STAT, Start [...] 9-24 Marx Route: l 22:19: IVP, ONCE, [place] Dosing Weight 58.636, kg, Priority: STAT, Start [...] 9-24 Marx Rate: l 0.9% 22:19: 1,000 [place] (Bolus) IV 00 ml/hr, 500 mL Infuse [...] ondansetron No Hung Murillo 4 mg, Memoria - [...] mg, 1 M emoria mg oral 6-11 Deangeol tab, PO, l tablet 11:11: Brisa QID-Before [...] insulin No Blake 10 unit, Mem oria isophane-CLAY PUDDLER 6-11 Deangelo 0.1 mL, l H 02:00: [...] l 02:00: Brisa Route: PO, Her braden Drug form: CAP, Bedtime, Start date: 11/29/11 21:00:00, Duration: 30 day, Stop date: 12/28/11 21:00:00 insulin 2012-0 No Blake 10 unit, Mem oria isophane-CLAY PUDDLER 6-11 Deangelo 0.1 mL, l H 02:00: [...] 2011-0 No Blake 10 unit, Mem oria isophane-CLAY PUDDLER 6-11 Deangelo 0.1 mL, l H 02:00: Brisa Route: [place] SUB-Q, Drug form: INJ, Bedtime, Start date: 11/29/11 21:00:00, Duration: 30 day, Stop date: 12/28/11 21:00:00 Insulin 2012-0 No Blake 8 unit, Mendoza janice regular [...] 2011-0 No Blake 10 unit, Mem oria isophane-CLAY PUDDLER 6-11 Deangelo 0.1 mL, l H 02:00: Route: [place] SUB-Q, Drug form: INJ, Bedtime, Start date: [...] 2011-0 No Blake 10 unit, Mem oria isophane-CLAY PUDDLER 6-11 Deangelo 0.1 mL, l H 02:00: Route: Vin SUB-Q, Drug form: INJ, Bedtime, Start date: 11/29/11 21:00:00, Duration: 30 day, Stop date: 12/28/11 21:00:00 Insulin 2011-0 No Blake 8 unit, Mendoza janice regular 6-11 Deangelo 0.08 mL, l 02:00: Route: [place] SUB-Q, Drug form: SOLN, Bedtime, Start date: [...] 6-10 Omidvar Route: l 21:33: IVP, ONCE, [place] 00 Start date: 11/29/11 16:33:00, Stop date: [...] Omidvar mL, Route: l 21:32: IVP, Drug [place] 00 form: INJ, ONCE, Start date: 11/29/11 16:32:00, Stop date: 11/29/11 16:32:00 morphine 2011-0 No [place] 2 mg, 0.5 Me moria Sulfate 6-10 Omidvar mL, Route: l 21:32: IVP, Drug [place] 00 form: INJ, ONCE, Start date: 11/29/11 16:32:00, Stop date: 11/29/11 16:32:00 morphine 2011-0 No [place] 2 mg, 0.5 Me moria Sulfate 6-10 Omidvar mL, Route: l 21:32: IVP, Drug Vin form: INJ, ONCE, Start date: 11/29/11 16:32:00, Stop date: 11/29/11 16:32:00 morphine 2012-0 No [place] 2 mg, 0.5 Me moria Sulfate 6-10 Omidvar mL, Route: l 21:32: IVP, Drug [place] 00 form: INJ, ONCE, Start date: 11/29/11 16:32:00, Stop date: 11/29/11 16:32:00 Tylenol 2011-0 No [place] 650 mg, 2 Mem oria 6-10 Omidvar tab, l 19:16: Route: PO, Vin 00 Drug form: TAB, Q4H, PRN Pain, Start date: 11/29/11 14:16:00, Duration: 30 day, Stop date: 12/29/11 14:15:00 Tylenol 2011-0 No [place] 650 mg, 2 Mem oria 6-10 Omidvar tab, l 19:16: Route: PO, [place] 00 Drug form: TAB, Q4H, PRN Pain, Start date: 11/29/11 14:16:00, Duration: 30 day, Stop date: 12/29/11 14:15:00 Tylenol 2011-0 No [place] 650 mg, 2 Mem oria 6-10 Omidvar tab, l 19:16: Route: PO, [place] 00 Drug form: TAB, Q4H, PRN Pain, [...] 2011-0 No Blake 14 unit, Mem oria isophane-CLAY PUDDLER 6-10 Deangelo 0.14 mL, l H 14:00: Rbisa Route: Vin 00 SUB-Q, Drug form: INJ, [...] 2011-0 No Blake 14 unit, Mem oria isophane-CLAY PUDDLER 6-10 Deangelo 0.14 mL, l H 14:00: Brisa Route: Vin 00 SUB-Q, Drug form: INJ, Daily, Start date: 11/29/11 9:00:00, Duration: 30 day, Stop date: 12/28/11 9:00:00 Insulin 2011-0 No Blake 10 unit, Mem oria regular 6-10 Deangelo 0.1 mL, l 14:00: Brisa Route: [place] 00 SUB-Q, Drug form: SOLN, Daily, Start [...] 2011-0 No Blake 14 unit, Mem oria isophane-CLAY PUDDLER 6-10 Deangelo 0.14 mL, l H 14:00: Brisa Route: Vin SUB-Q, Drug form: INJ, Daily, Start date: 11/29/11 9:00:00, Duration: 30 day, Stop date: 12/28/11 9:00:00 Insulin 2011-0 No Blake 10 unit, Mem oria regular 6-10 Deangelo 0.1 mL, l 14:00: Brisa Route: [place] 00 SUB-Q, Drug form: SOLN, Daily, Start [...] 2011-0 No Blake 14 unit, Mem oria isophane-CLAY PUDDLER 6-10 Deangelo 0.14 mL, l H 14:00: Brisa Route: [place] 00 SUB-Q, Drug form: INJ, Daily, Start date: 11/29/11 9:00:00, Duration: 30 day, Stop date: 12/28/11 9:00:00 Insulin 2011-0 No Blake 10 unit, Mem oria regular 6-10 Deangelo 0.1 mL, l 14:00: Brisa Route: [place] 00 SUB-Q, Drug form: SOLN, Daily, Start [...] 2011-0 No Blake 14 unit, Mem oria isophane-CLAY PUDDLER 6-10 Deangelo 0.14 mL, l H 14:00: Brisa Route: Vin SUB-Q, Drug form: INJ, Daily, Start date: 11/29/11 9:00:00, Duration: 30 day, Stop date: 12/28/11 9:00:00 Insulin 2011-0 No Blake 10 unit, Mem oria regular 6-10 Deangelo 0.1 mL, l 14:00: Brisa Route: [place] 00 SUB-Q, Drug form: SOLN, Daily, Start [...] 6-10 Deangelo 0.1 mL, l 06:30: Route: [place] 00 SUB-Q, Drug form: SOLN, TID-Before Meals, [...] Deangelo 0.1 mL, l 06:30: Brisa Route: [place] 00 SUB-Q, Drug form: SOLN, TID-Before Meals, [...] l IV 1,000 mL 06:29: Brisa ml/hr, [place] 00 Infuse over: 5 hr, Route: IV, [...] janice 6-10 Deangelo Route: IV, l 06:28: [facility] Drug form: Her braden 00 [...] Reglan 2011-0 No Blake 10 mg, 2 Menodza janice 6-10 Deangelo mL, Route: l 06:28: Brisa IVP, Drug Herm naeem 00 form: INJ, Q6H, Priority: STAT, Start date: 11/29/11 1:28:00, Duration: 30 day, Stop date: 12/29/11 0:00:00 Protonix 2011-0 No Blake 40 mg, Mendoza jaince 6-10 Deangelo Route: IV, l 06:28: [facility] Drug form: Her braden 00 [...] janice 6-10 Deangelo Route: IV, l 06:28: [facility] Drug form: Her braden 00 [...] mL, Route: l 04:01: Brayan IVP, Drug [place] 00 form: INJ, ONCE, Priority: STAT, Start date: 11/28/11 23:01:00, Stop date: 11/28/11 23:01:00 metoclopram 2012-0 No Nikki 10 mg, 2 Memoria gadiel 6-10 Sarah mL, Route: l 04:01: Brayan IVP, Drug [place] 00 form: INJ, ONCE, Priority: STAT, Start [...] mL, Route: l 04:01: Brayan IVP, Drug [place] 00 form: INJ, ONCE, Priority: STAT, Start date: 11/28/11 23:01:00, Stop date: 11/28/11 23:01:00 metoclopram 2012-0 No Nikki 10 mg, 2 Memoria gadiel 6-10 Sarah mL, Route: l 04:01: Brown IVP, Drug [place] 00 form: INJ, ONCE, Priority: STAT, Start [...] mL, Route: l 02:31: Brown IVP, Drug [place] 00 form: INJ, ONCE, Priority: STAT, Start date: 11/28/11 21:31:00, Stop date: 11/28/11 21:31:00 Zofran 2011-0 No Nikki 4 mg, 2 Mendoza janice 6-10 Sarah mL, Route: l 02:31: Brown IVP, Drug [place] 00 form: INJ, ONCE, Priority: STAT, Start [...] mL, Route: l 02:31: Brown IVP, Drug [place] 00 form: INJ, ONCE, Priority: STAT, Start date: 11/28/11 21:31:00, Stop date: 11/28/11 21:31:00 NS (Bolus) No Arif Domenico 1,000 mL, Memoria IV 1,000 mL 11-27 Rate: l 22:48: 1,000 [place] 00 ml/hr, Infuse over: 1 hr, Route: [...] 1,000 mL 6- Rate: l 22:48: 1,000 [place] 00 ml/hr, Infuse over: 1 hr, Route: [...] 1,000 mL 6 Rate: l 22:48: 1,000 [place] 00 ml/hr, Infuse over: 1 hr, Route: IV, Dosing Weight 57.273 kg, Total Volume: 1,000, Start date: 11/28/11 17:48:00, Duration: 30 day, Stop date: 12/28/11 17:47:00 NS (Bolus) No Arif Domenico 1,000 mL, Memoria IV 1,000 mL 6- Rate: l 20:36: 1,000 [place] 00 ml/hr, Infuse over: 1 hr, Route: [...] 1,000 mL 11-27 Rate: l 20:36: 1,000 [place] 00 ml/hr, Infuse over: 1 hr, Route: IV, Dosing Weight 57.273 kg, Total Volume: 1,000, Start date: 11/28/11 15:36:00, Duration: 30 day, Stop date: 12/28/11 15:35:00 NS (Bolus) No Arif Domenico 1,000 mL, Memoria IV 1,000 mL 11-27 Rate: l 20:36: 1,000 [place] 00 ml/hr, Infuse over: 1 hr, Route: IV, Dosing Weight 57.273 kg, Total Volume: 1,000, Start date: 11/28/11 15:36:00, Duration: 30 day, Stop date: 12/28/11 15:35:00 NS (Bolus) No Arif Domeinco 1,000 mL, Memoria IV 1,000 mL 11-27 Rate: l 20:36: 1,000 [place] 00 ml/hr, Infuse over: 1 hr, Route: IV, Dosing Weight 57.273 kg, Total Volume: 1,000, Start date: 11/28/11 15:36:00, Duration: 30 day, Stop date: 12/28/11 15:35:00 Ativan No Arif Domenico 2 mg, 1 Mem oria 6-09 mL, Route: l 20:35: IVP, Drug [place] 00 form: INJ, ONCE, Priority: STAT, Start [...] Hughes-Jason 8 unit, M emoria 100 3-30 [place] SUB-Q, l units/mL 17:47: Dawson Q12H, 2 He rmann injectable 42 Pu vial, solution Substituti on Allowed, SOLN Novolin R Yes Hughes-Jason 8 unit, M emoria 100 3-30 [place] SUB-Q, l units/mL 17:47: [place] Q12H, 2 He rmann injectable 42 Pu vial, solution Substituti on Allowed, SOLN Novolin R Yes Hughes-Jason 8 unit, M emoria 100 3-30 [place] SUB-Q, l units/mL 17:47: Dawson Q12H, 2 He rmann injectable 42 Pu vial, solution Substituti on Allowed, SOLN Novolin R Yes Hughes-Jason 8 unit, M emoria 100 3-30 [place] SUB-Q, l units/mL 17:47: Dawson Q12H, 2 He rmann injectable 42 Pu vial, solution Substituti on Allowed, SOLN Novolin R Yes Hughes-Jason 8 unit, M emoria 100 3-30 [place] SUB-Q, l units/mL 17:47: Dawson Q12H, 2 He rmann injectable 42 Pu vial, solution Substituti on Allowed, SOLN Novolin N Yes Hughes-Jason 10 unit, Memoria 100 3-30 [place] SUB-Q, l units/mL 17:46: Dawson Bedtime, H ermann subcutaneou 27 Pu 10 ml, s injection Substituti on Allowed, SUSP Novolin N Yes Hughes-Jason 10 unit, Memoria 100 3-30 [place] SUB-Q, l units/mL 17:46: Dawson Bedtime, H ermann subcutaneou 27 Pu 10 ml, s injection Substituti on Allowed, SUSP Novolin N Yes Hughes-Jason 10 unit, Memoria 100 3-30 [place] SUB-Q, l units/mL 17:46: Dawson Bedtime, H ermann subcutaneou 27 Pu 10 ml, s injection Substituti on Allowed, SUSP Novolin N Yes Hughes-Jason 10 unit, Memoria 100 3-30 [place] SUB-Q, l units/mL 17:46: Dawson Bedtime, H ermann subcutaneou 27 Pu 10 ml, s injection Substituti on Allowed, SUSP Novolin N Yes Hughes-Jason 10 unit, Memoria 100 3-30 [place] SUB-Q, l units/mL 17:46: Dawson Bedtime, H ermann subcutaneou 27 Pu 10 ml, s injection Substituti on Allowed, SUSP Novolin N Yes Hughes-Jason 14 unit, Memoria 100 3-30 [place] SUB-Q, l units/mL 17:44: Dawson QAM, 1 Her braden subcutaneou 37 Pu vial, s injection Substituti on Allowed, SUSP Novolin N Yes Hughes-Jason 14 unit, Memoria 100 3-30 [place] SUB-Q, l units/mL 17:44: Dawson QAM, 1 Her braden subcutaneou 37 Pu vial, s injection Substituti on Allowed, SUSP Novolin N Yes Hughes-Jason 14 unit, Memoria 100 3-30 [place] SUB-Q, l units/mL 17:44: Dawson QAM, 1 Her braden subcutaneou 37 Pu vial, s injection Substituti on Allowed, SUSP Novolin N 2011-0 Yes Hughes-Jason 14 unit, Memoria 100 3-30 [place] SUB-Q, l units/mL 17:44: Eunice QAM, 1 Her braden subcutaneou 37 Pu vial, s injection Substituti on Allowed, SUSP Novolin N 0 Yes Hughes-Jason 14 unit, Memoria 100 3-30 [place] SUB-Q, l units/mL 17:44: Eunice QAM, 1 Her braden subcutaneou 37 Pu vial, s injection Substituti on Allowed, SUSP magnesium 0 No Hughes-Jason 400 mg, 1 Memoria oxide 3-30 [place] tab, l 14:55: Dawson Route: PO, Her braden 00 Pu Drug form: TAB, ONCE, Priority: STAT, Start date: 09/18/11 9:55:00, Stop date: 09/18/11 9:55:00 magnesium 2011-0 No Hughes-Jason 400 mg, 1 Memoria oxide 3-30 [place] tab, l 14:55: Dawson Route: PO, Her braden 00 Pu Drug form: TAB, ONCE, Priority: STAT, Start date: 09/18/11 9:55:00, Stop date: 09/18/11 9:55:00 magnesium 2011-0 No Hughes-Jason 400 mg, 1 Memoria oxide 3-30 [place] tab, l 14:55: Dawson Route: PO, Her braden 00 Pu Drug form: TAB, ONCE, Priority: STAT, Start date: 09/18/11 9:55:00, Stop date: 09/18/11 9:55:00 magnesium 2011-0 No Hughes-Jason 400 mg, 1 Memoria oxide 3-30 [place] tab, l 14:55: Dawson Route: PO, Her braden 00 Pu Drug form: TAB, ONCE, Priority: STAT, Start date: 09/18/11 9:55:00, Stop date: 09/18/11 9:55:00 magnesium 2011-0 No Hughes-Jason 400 mg, 1 Memoria oxide 3-30 [place] tab, l 14:55: Dawson Route: PO, Her braden 00 Pu Drug form: TAB, ONCE, Priority: STAT, Start date: 09/18/11 9:55:00, Stop date: 09/18/11 9:55:00 Insulin 2011-0 No Hugehs-Jason 8 unit, Mem oria regular 3-30 [place] 0.08 mL, l 14:22: Dawson Route: Pu SUB-Q, Drug form: SOLN, ONCE, Priority: STAT, Start date: 09/18/11 9:22:00, Stop date: 09/18/11 9:22:00 Insulin 0 No Hughes-Jason 8 unit, Mem oria regular 3-30 [place] 0.08 mL, l 14:22: Dawson Route: Pu SUB-Q, Drug form: SOLN, ONCE, Priority: STAT, Start date: 09/18/11 9:22:00, Stop date: 09/18/11 9:22:00 Insulin 2011-0 No Hughes-Jason 8 unit, Mem oria regular 3-30 [place] 0.08 mL, l 14:22: Dawson Route: Vin 00 Pu SUB-Q, Drug form: SOLN, ONCE, Priority: STAT, Start date: 09/18/11 9:22:00, Stop date: 09/18/11 9:22:00 Insulin 0 No Huhges-Jason 8 unit, Mem oria regular 3-30 [place] 0.08 mL, l 14:22: Dawson Route: Pu SUB-Q, Drug form: SOLN, ONCE, Priority: STAT, Start date: 09/18/11 9:22:00, Stop date: 09/18/11 9:22:00 Insulin 0 No Hughes-Jason 8 unit, Mem oria regular 3-30 [place] 0.08 mL, l 14:22: Dawson Route: Pu SUB-Q, Drug form: SOLN, ONCE, Priority: STAT, Start date: 09/18/11 9:22:00, Stop date: 09/18/11 9:22:00 Lactated 2011-0 No Hughes-Jason 1,000 mL, Memoria Ringers 3-30 [place] Rate: l (Bolus) IV 14:16: [place] 1,000 He rmann 1,000 mL 00 Pu ml/hr, Infuse over: 1 hr, Route: IV, Total Volume: 1,000, Bolus Dose, Priority: STAT, Start date: 09/18/11 9:16:00, Duration: 1 doses or times, Stop date: 09/18/11 10:15:00 Lactated 2012-0 No Hughes-Jason 1,000 mL, Memoria Ringers 3-30 [place] Rate: l (Bolus) IV 14:16: Dawson 1,000 He rmann 1,000 mL 00 Pu ml/hr, Infuse over: 1 hr, Route: IV, Total Volume: 1,000, Bolus Dose, Priority: STAT, Start date: 09/18/11 9:16:00, Duration: 1 doses or times, Stop date: 09/18/11 10:15:00 Lactated 2012-0 No Hughes-Jason 1,000 mL, Memoria Ringers 3-30 [place] Rate: l (Bolus) IV 14:16: Dawson 1,000 He rmann 1,000 mL 00 Pu ml/hr, Infuse over: 1 hr, Route: IV, Total Volume: 1,000, Bolus Dose, Priority: STAT, Start date: 09/18/11 9:16:00, Duration: 1 doses or times, Stop date: 09/18/11 10:15:00 Lactated 2012-0 No Hughes-Jason 1,000 mL, Memoria Ringers 3-30 [place] Rate: l (Bolus) IV 14:16: [place] 1,000 He rmann 1,000 mL 00 Pu ml/hr, Infuse over: 1 hr, Route: IV, Total Volume: 1,000, Bolus Dose, Priority: STAT, Start date: 09/18/11 9:16:00, Duration: 1 doses or times, Stop date: 09/18/11 10:15:00 Lactated 2012-0 No Hughes-Jason 1,000 mL, Memoria Ringers 3-30 [place] Rate: l (Bolus) IV 14:16: [place] 1,000 He rmann 1,000 mL 00 Pu ml/hr, Infuse over: 1 hr, Route: IV, Total Volume: 1,000, Bolus Dose, Priority: STAT, Start date: 09/18/11 9:16:00, Duration: 1 doses or times, Stop date: 09/18/11 10:15:00 Sodium 2012-0 No Hughes-Jason 1,000 mL, Me moria Chloride 3-30 [place] Rate: l 0.9% 14:06: Dawson 1,000 [place] (Bolus) IV 00 Pu ml/hr, 1000 mL Infuse over: 1 hr, Route: IV, kg, Total Volume: 1,000, Bolus Dose, Priority: STAT, Start date: 09/18/11 9:06:00, Duration: 1 doses or times, Stop date: 09/18/11 10:05:00 Sodium 2012-0 No Hughes-Jason 1,000 mL, Me moria Chloride 3-30 [place] Rate: l 0.9% 14:06: [place] 1,000 [place] (Bolus) IV 00 Pu ml/hr, 1000 mL Infuse over: 1 hr, Route: IV, kg, Total Volume: 1,000, Bolus Dose, Priority: STAT, Start date: 09/18/11 9:06:00, Duration: 1 doses or times, Stop date: 09/18/11 10:05:00 Sodium 2012-0 No Hughes-Jason 1,000 mL, Me moria Chloride 3-30 [place] Rate: l 0.9% 14:06: [place] 1,000 [place] (Bolus) IV 00 Pu ml/hr, 1000 mL Infuse over: 1 hr, Route: IV, kg, Total Volume: 1,000, Bolus Dose, Priority: STAT, Start date: 09/18/11 9:06:00, Duration: 1 doses or times, Stop date: 09/18/11 10:05:00 Sodium 2012-0 No Hughes-Jason 1,000 mL, Me moria Chloride 3-30 [place] Rate: l 0.9% 14:06: [place] 1,000 [place] (Bolus) IV 00 Pu ml/hr, 1000 mL Infuse over: 1 hr, Route: IV, kg, Total Volume: 1,000, Bolus Dose, Priority: STAT, Start date: 09/18/11 9:06:00, Duration: 1 doses or times, Stop date: 09/18/11 10:05:00 Sodium 2012-0 No Hughes-Jason 1,000 mL, Me moria Chloride 3-30 [place] Rate: l 0.9% 14:06: [place] 1,000 Vin (Bolus) IV 00 Pu ml/hr, 1000 mL Infuse over: 1 hr, Route: IV, kg, Total Volume: 1,000, Bolus Dose, Priority: STAT, Start date: 09/18/11 9:06:00, Duration: 1 doses or times, Stop date: 09/18/11 10:05:00 sulfamethox 2012-0 Yes Substituti Memoria azole 3-30 on Allowed l 14:04: [place] 58 sulfamethox 2012-0 Yes Substituti Memoria azole 3-30 on Allowed l 14:04: [place] 58 sulfamethox 2012-0 Yes Substituti Memoria azole 3-30 on Allowed l 14:04: [place] 58 sulfamethox 2012-0 Yes Substituti Memoria azole 3-30 on Allowed l 14:04: [place] 58 sulfamethox 2012-0 Yes Substituti Memoria azole 3-30 on Allowed l 14:04: [place] 58 Sodium 2012-0 No Hughes-Jason 1,000 mL, Me moria Chloride 3-30 [place] Rate: l 0.9% 13:56: [place] 1,000 [place] (Bolus) IV 00 Pu ml/hr, 1000 mL Infuse over: 1 hr, Route: IV, kg, Total Volume: 1,000, Bolus Dose, Priority: STAT, Start date: 09/18/11 8:56:00, Duration: 1 doses or times, Stop date: 09/18/11 9:55:00 Sodium 2012-0 No Hughes-Jason 1,000 mL, Me moria Chloride 3-30 [place] Rate: l 0.9% 13:56: Dawson 1,000 [place] (Bolus) IV 00 Pu ml/hr, 1000 mL Infuse over: 1 hr, Route: IV, kg, Total Volume: 1,000, [place] Dose, Priority: STAT, Start date: 09/18/11 8:56:00, Duration: 1 doses or times, Stop date: 09/18/11 9:55:00 Sodium 2012-0 No Hughes-Jason 1,000 mL, Me moria Chloride 3-30 [place] Rate: l 0.9% 13:56: Dawson 1,000 Vin (Bolus) IV 00 Pu ml/hr, 1000 mL Infuse over: 1 hr, Route: IV, kg, Total Volume: 1,000, [place] Dose, Priority: STAT, Start date: 09/18/11 8:56:00, Duration: 1 doses or times, Stop date: 09/18/11 9:55:00 Sodium 2012-0 No Hughes-Jason 1,000 mL, Me moria Chloride 3-30 [place] Rate: l 0.9% 13:56: Dawson 1,000 Vin (Bolus) IV 00 Pu ml/hr, 1000 mL Infuse over: 1 hr, Route: IV, kg, Total Volume: 1,000, [place] Dose, Priority: STAT, Start date: 09/18/11 8:56:00, Duration: 1 doses or times, Stop date: 09/18/11 9:55:00 Sodium 2012-0 No Hughes-Jason 1,000 mL, Me moria Chloride 3-30 [place] Rate: l 0.9% 13:56: Dawson 1,000 Vin (Bolus) IV 00 Pu ml/hr, 1000 mL Infuse over: 1 hr, Route: IV, kg, Total Volume: 1,000, [place] Dose, Priority: STAT, Start date: 09/18/11 8:56:00, Duration: 1 doses or times, Stop date: 09/18/11 9:55:00 clindamycin 2012-0 No Eber L 300 mg, 2 Memoria 3-21 Anabelle cap, l 21:00: Route: PO, [place] 00 Drug form: CAP, Q8H, Start date: 09/09/11 16:00:00, Duration: 30 day, Stop date: 10/09/11 8:00:00 clindamycin 2012-0 No Beer L 300 mg, 2 Memoria 3-21 Anabelle cap, l 21:00: Route: PO, [place] Drug form: CAP, Q8H, Start date: 09/09/11 [...] 3-21 Anabelle cap, l 21:00: Route: PO, [place] 00 Drug form: CAP, Q8H, Start date: 09/09/11 16:00:00, Duration: 30 day, Stop date: 10/09/11 8:00:00 Colace 100 2011-0 Yes Luna 100 mg, 1 Memoria mg oral 3-21 Amelia cap, PO, l capsule 18:47: [place] BID, 60 Her braden 19 cap, Substituti on Allowed, CAP Colace 100 2011-0 Yes Luna 100 mg, 1 Memoria mg oral 3-21 Amelia cap, PO, l capsule 18:47: [place] BID, 60 Her braden 19 cap, Substituti on Allowed, CAP Colace 100 2011-0 Yes Luna 100 mg, 1 Memoria mg oral 3-21 Amelia cap, PO, l capsule 18:47: [place] BID, 60 Her braden 19 cap, Substituti on Allowed, CAP Colace 100 2011-0 Yes Luna 100 mg, 1 Memoria mg oral 3-21 Amelia cap, PO, l capsule 18:47: [place] BID, 60 Her braden 19 cap, Substituti on Allowed, CAP Colace 100 2011-0 Yes Luna 100 mg, 1 Memoria mg oral 3-21 Amelia cap, PO, l capsule 18:47: [place] BID, 60 Her braden 19 cap, Substituti on Allowed, CAP clindamycin 2011-0 Yes Luna 300 mg, 2 Memoria 150 mg oral 3-21 Amelia cap, PO, l capsule 18:46: Zeeshan Q8H, 30 Her braden 55 cap, Substituti on Allowed, CAP clindamycin 2011-0 Yes Luna 300 mg, 2 Memoria 150 mg oral 3-21 Amelia cap, PO, l capsule 18:46: [place] Q8H, 30 Her braden 55 cap, Substituti [...] 3-21 Amelia cap, PO, l capsule 18:46: [place] Q8H, 30 Her braden 55 cap, Substituti on Allowed, CAP [place] 2011- Yes Luna 1 tab, PO, Memoria 10/325 oral 3-21 Amelia Q4H, PRN, l tablet 18:46: Zeeshan 30 tab, Herm naeem 36 Pain, Substituti on Allowed, Maintenanc e, TAB [place] 2011- Yes Luna 1 tab, PO, Memoria 10/325 oral 3-21 Amelia Q4H, PRN, l tablet 18:46: Zeeshan 30 tab, Herm naeem 36 Pain, Substituti on Allowed, Maintenanc e, TAB [place] 2011-0 Yes Luna 1 tab, PO, Memoria 10/325 oral 3-21 Amelia Q4H, PRN, l tablet 18:46: [place] 30 tab, Herm naeem 36 Pain, Substituti on Allowed, Maintenanc e, TAB [place] 2011-0 Yes Luna 1 tab, PO, Memoria 10/325 oral 3-21 Amelia Q4H, PRN, l tablet 18:46: [place] 30 tab, Herm naeem 36 Pain, Substituti on Allowed, Maintenanc e, TAB [place] 2011-0 Yes Luna 1 tab, PO, Memoria 10/325 oral 3-21 Amelia Q4H, PRN, l tablet 18:46: [place] 30 tab, Herm naeem 36 Pain, Substituti on Allowed, Maintenanc e, TAB [place] 0 No Hollie Donavan 1 tab, Mendoza janice 10/325 oral 3-21 Mahi Route: PO, l tablet 09:00: Drug Form: Ndiia nn 00 TAB, Q4H, Start date: 09/09/11 4:00:00, Duration: 30 day, Stop date: 10/09/11 0:00:00 [place] 0 No Hollie Donavan 1 tab, Mendoza janice 10/325 oral 3-21 Mahi Route: PO, l tablet 09:00: Drug Form: Nidia nn 00 TAB, Q4H, Start date: 09/09/11 4:00:00, Duration: 30 day, Stop date: 10/09/11 0:00:00 [place] 0 No Hollie Donavan 1 tab, Mendoza janice 10/325 oral 3-21 Mahi Route: PO, l tablet 09:00: Drug Form: Nidia nn 00 TAB, Q4H, Start date: 09/09/11 4:00:00, Duration: 30 day, Stop date: 10/09/11 0:00:00 [place] 0 No Hollie Donavan 1 tab, Mendoza janice 10/325 oral 3-21 Mahi Route: PO, l tablet 09:00: Drug Form: Nidia nn 00 TAB, Q4H, Start date: 09/09/11 4:00:00, Duration: 30 day, Stop date: 10/09/11 0:00:00 [place] 0 No Hollie Donavan 1 tab, Mendoza [...] 3-19 [place] tab, l 15:30: Route: PO, [place] 00 Drug form: TAB, Daily, Start date: 09/07/11 10:30:00, Duration: 30 day, Stop date: 10/07/11 9:00:00 enalapril 2012-0 No [place] 5 mg, 1 Mem oria 3-19 [place] tab, l 15:30: Route: PO, [place] 00 Drug form: TAB, Daily, Start date: [...] 3-19 [place] tab, l 15:30: Route: PO, Drug form: TAB, Daily, Start date: 09/07/11 [...] Josefina 0.1 mL, l 14:19: Gavin Route: [place] 00 IVP, Drug form: INJ, Q2MIN, PRN Narcotic Reversal, Start date: 09/07/11 9:19:00, Duration: 8 doses or times, Stop date: Limited # of times ondansetron 2011-0 No Gayle 4 mg, 2 Memoria 3-19 [...] Josefina 0.1 mL, l 14:19: Gavin Route: [place] 00 IVP, Drug form: INJ, Q2MIN, PRN Narcotic Reversal, Start date: 09/07/11 9:19:00, Duration: 8 doses or times, Stop date: Limited # of times ondansetron No Gayle 4 mg, 2 Memoria 3-19 Josefina mL, Route: l 14:19: [place] IVP, Drug Jake n 00 form: INJ, ONCE, PRN Nausea & Vomiting, Start date: 09/07/11 9:19:00 hydromorpho No Gayle 0.5 mg, Memoria ne 3-19 Josefina 0.25 mL, l 14:19: [place] Route: [place] 00 IVP, Drug form: INJ, Q5Min, PRN [...] Memoria 3-19 Josefina mL, Route: l 14:19: [place] IVP, Drug Jake n 00 form: INJ, PRN, PRN Benzodiaze pine Reversal, Initial dose, Start date: 09/07/11 9:19:00, Duration: 1 day, Stop date: 09/08/11 9:18:00 naloxone No Gayle 0.04 mg, Me moria 3-19 Josefina 0.1 mL, l 14:19: Gavin Route: [place] 00 IVP, Drug form: INJ, Q2MIN, PRN Narcotic Reversal, Start date: 09/07/11 9:19:00, Duration: 8 doses or times, Stop date: Limited # of times ondansetron No Gayle 4 mg, 2 Memoria 3-19 Josefina mL, Route: l 14:19: [place] IVP, Drug Jake n 00 form: INJ, ONCE, PRN Nausea & Vomiting, Start date: 09/07/11 9:19:00 hydromorpho No Gayle 0.5 mg, Memoria ne 3-19 Josefina 0.25 mL, l 14:19: [place] Route: Vin 00 IVP, Drug form: INJ, [...] Memoria 3-19 Josefina mL, Route: l 14:19: [place] IVP, Drug Jake n 00 form: INJ, PRN, PRN Benzodiaze pine Reversal, Initial dose, Start date: 09/07/11 9:19:00, Duration: 1 day, Stop date: 09/08/11 9:18:00 naloxone 2011-0 No Gayle 0.04 mg, Me moria 3-19 Josefina 0.1 mL, l 14:19: [place] Route: [place] 00 IVP, Drug form: INJ, Q2MIN, PRN Narcotic Reversal, Start date: 09/07/11 9:19:00, Duration: 8 doses or times, Stop date: Limited # of times ondansetron 2011- No Gayle 4 mg, 2 Memoria 3-19 [...] Josefina Route: PO, l one 325 14:19: [place] Drug Form: He rmann mg-10 mg/15 00 SOLN, Q4H, mL oral PRN Pain solution Score 4-6, Start date: 09/07/11 9:19:00, Duration: 1 day, Stop date: 09/08/11 8:00:00 flumazenil 2011-0 No Gayle 0.2 mg, 2 Memoria 3-19 Josefina mL, Route: l 14:19: [place] IVP, Drug Jake n 00 form: INJ, PRN, PRN Benzodiaze pine Reversal, Initial dose, Start date: 09/07/11 9:19:00, Duration: 1 day, Stop date: 09/08/11 9:18:00 naloxone 2011-0 No Gayle 0.04 mg, Me moria 3-19 Josefina 0.1 mL, l 14:19: Gavin Route: [place] 00 IVP, Drug form: INJ, Q2MIN, PRN [...] ne 3- Josefina 0.25 mL, l 14:19: [place] Route: Vin 00 IVP, Drug form: INJ, [...] [place] 1,000 mL, Me moria Ringers IV 3- [place] Rate: 125 l 1,000 mL 14:06: ml/hr, [place] 00 Infuse over: 8 hr, Route: IV, [...] [place] 1,000 mL, Me moria Ringers IV 3- [place] Rate: 125 l 1,000 mL 14:06: ml/hr, [place] 00 Infuse over: 8 hr, Route: IV, Dosing Weight 68.182 kg, Total Volume: 1,000, Start date: 09/07/11 9:06:00, Duration: 30 day, Stop date: 10/07/11 9:05:00 Lactated 2011-0 No [place] 1,000 mL, Me moria Ringers IV 3- [place] Rate: 125 l 1,000 mL 14:06: ml/hr, Vin 00 Infuse over: 8 hr, Route: IV, Dosing Weight 68.182 kg, Total Volume: 1,000, Start date: 09/07/11 9:06:00, Duration: 30 day, Stop date: 10/07/11 9:05:00 clindamycin 2011-0 No Maximo R 600 mg, Memoria 3-19 Arias Route: l 13:31: IVPB, [place] 00 ONCE, Start date: 09/07/11 8:31:00, Stop date: 09/07/11 8:31:00 clindamycin 2012-0 No Maximo R 600 mg, Memoria 3-19 Arias Route: l 13:31: IVPB, Vin 00 ONCE, Start date: 09/07/11 8:31:00, Stop date: 09/07/11 8:31:00 clindamycin 2012-0 No Maximo R 600 mg, Memoria 3-19 Arias Route: l 13:31: IVPB, [place] 00 ONCE, Start date: 09/07/11 8:31:00, Stop date: 09/07/11 8:31:00 clindamycin No Maximo R 600 mg, Memoria 3-19 Arias Route: l 13:31: IVPB, [place] 00 ONCE, Start date: 09/07/11 8:31:00, Stop date: 09/07/11 8:31:00 clindamycin No Maximo R 600 mg, Memoria 3-19 Arias Route: l 13:31: IVPB, [place] 00 ONCE, Start date: 09/07/11 8:31:00, Stop [...] date: 10/06/11 8:24:00 normal 2011-0 No Yury Yan 1,000 mL, M emoria saline 0.9% 318 [...] 3-17 Wong tab, l 04:00: Route: PO, [place] 00 Drug form: ECTAB, Daily, PRN Constipati on, Priority: NOW, Start date: 09/04/11 23:00:00, Duration: 30 day, Stop date: 10/04/11 22:59:00 Dulcolax 2012-0 No Charbel A 10 mg, 2 M emoria Laxative 3-17 Wong tab, l 04:00: Route: PO, [place] 00 Drug form: ECTAB, Daily, PRN Constipati on, Priority: NOW, Start date: 09/04/11 23:00:00, Duration: 30 day, Stop date: 10/04/11 22:59:00 Dulcolax 2012-0 No Charbel A 10 mg, 2 M emoria Laxative 3-17 Wong tab, l 04:00: Route: PO, [place] 00 Drug form: ECTAB, Daily, PRN Constipati [...] Duration: 30 day, Stop date: 10/04/11 18:10:00 [place] 2012-0 No Mahammad 1 tab, Memori a 10/325 oral 3-16 Simeon Route: PO, l tablet 17:00: Dez Drug Form: He rmann 00 TAB, Q4H, Start date: 09/04/11 12:00:00, Duration: 30 day, Stop date: 10/04/11 8:00:00 [place] 2012-0 No Mahammad 1 tab, Memori a 10/325 oral 3-16 Simeon Route: PO, l tablet 17:00: Dez Drug Form: He rmann 00 TAB, Q4H, Start date: 09/04/11 12:00:00, Duration: 30 day, Stop date: 10/04/11 8:00:00 [place] 2012-0 No Mahammad 1 tab, Memori a 10/325 oral 3-16 Simeon Route: PO, l tablet 17:00: Dez Drug Form: Tyrel rmann 00 TAB, Q4H, Start date: 09/04/11 12:00:00, Duration: 30 day, Stop date: 10/04/11 8:00:00 [place] 2012-0 No Mahammad 1 tab, Memori a 10/325 oral 3-16 Simeon Route: PO, l tablet 17:00: Dez Drug Form: Tyrel rmann 00 TAB, Q4H, Start date: 09/04/11 12:00:00, Duration: 30 day, Stop date: 10/04/11 8:00:00 [place] 2012-0 No Mahammad 1 tab, Memori a [...] 3-16 Kavon 0.1 mL, l 14:50: Route: [place] 00 IVP, Drug form: INJ, Q2MIN, PRN [...] 10cc/hr, l - site 1 14:50: Route: [place] 400 mL 00 NERVE BLOCK, Start date: [...] 3-16 Kavon 0.1 mL, l 14:50: Route: [place] 00 IVP, Drug form: INJ, Q2MIN, PRN [...] 10cc/hr, l - site 1 14:50: Route: [place] 400 mL 00 NERVE BLOCK, Start date: [...] 10cc/hr, l - site 1 14:50: Route: [place] 400 mL 00 NERVE BLOCK, Start date: 09/04/11 9:50:00 400 mL, Duration: 30 day, Stop date: 10/04/11 9:49:00 naloxone 2012-0 No Rosalino 0.04 mg, Me moria 3-16 Kavon 0.1 mL, l 14:50: Route: [place] 00 IVP, Drug form: INJ, Q2MIN, PRN Narcotic Reversal, Start date: 09/04/11 9:50:00, Duration: 30 day, Stop date: 10/04/11 9:49:00 [place] No [place] 1 tab, Memoria 10/325 oral 3-16 O[place] Route: PO, l tablet 14:49: Drug Form: Nidia nn 00 TAB, Q4H, PRN Pain, Start date: 09/04/11 9:49:00, Stop date: 10/04/11 9:48:00 [place] No [place] 1 tab, Memoria 10/325 oral 3-16 O[place] Route: PO, l tablet 14:49: Drug Form: Nidia nn 00 TAB, Q4H, PRN Pain, Start date: 09/04/11 9:49:00, Stop date: 10/04/11 9:48:00 [place] No [place] 1 tab, Memoria 10/325 oral 3-16 O[place] Route: PO, l tablet 14:49: Drug Form: Nidia nn 00 TAB, Q4H, PRN Pain, Start date: 09/04/11 9:49:00, Stop date: 10/04/11 9:48:00 [place] No [place] 1 tab, Memoria 10/325 oral 3-16 Omid[place] Route: PO, l tablet 14:49: Drug Form: Nidia nn 00 TAB, Q4H, PRN Pain, Start date: 09/04/11 9:49:00, Stop date: 10/04/11 9:48:00 [place] No [place] 1 tab, Memoria 10/325 oral 3-16 Omid[place] Route: PO, l tablet 14:49: Drug Form: Nidia nn 00 TAB, Q4H, PRN Pain, Start date: 09/04/11 9:49:00, Stop date: 10/04/11 9:48:00 labetalol No Gregory F 5 mg, Mendoza janice 3-16 Puga Route: IV, l 14:40: ONCE, Vin 00 Start date: 09/04/11 9:40:00, Stop date: 09/04/11 9:40:00 labetalol 2011-0 No Gregory F 5 mg, Mendoza janice 3-16 [place] Route: IV, l 14:40: ONCE, Start date: 09/04/11 9:40:00, Stop date: 09/04/11 9:40:00 labetalol 2011-0 No Gregory F 5 mg, Mendoza janice 3-16 [place] Route: IV, l 14:40: ONCE, Start date: 09/04/11 9:40:00, Stop date: 09/04/11 9:40:00 labetalol 2011-0 No Gregory F 5 mg, Mendoza janice 3-16 [place] Route: IV, l 14:40: ONCE, Start date: 09/04/11 9:40:00, Stop date: 09/04/11 9:40:00 labetalol 2011-0 No Gregory F 5 mg, [...] Beck 0.5 mL, l 13:37: Hay[place] Route: [place] 00 IVP, Drug form: INJ, Q30Min, PRN [...] Beck 0.1 mL, l 13:37: [place] Route: [place] 00 IVP, Drug form: INJ, Q2MIN, PRN [...] Beck 0.5 mL, l 13:37: [place] Route: [place] IVP, Drug form: INJ, Q30Min, PRN Other [...] 3-16 Kavon 0.25 mL, l 13:37: Route: [place] IVP, Drug form: INJ, Q5Min, PRN Pain [...] Beck 0.1 mL, l 13:37: Hay[place] Route: [place] IVP, Drug form: INJ, Q2MIN, PRN Narcotic [...] 3-16 Kavon 0.25 mL, l 13:37: Route: [place] IVP, Drug form: INJ, Q5Min, PRN Pain Score 4-6, Start date: 09/04/11 8:37:00, Duration: 5 doses or times, Stop date: Limited # of times clindamycin 2011-0 No Eber L 600 mg, 4 Memoria 3-15 Anabelle mL, Route: l 16:00: IVPB, [place] 00 [id number], Start date: 09/03/11 11:00:00, Duration: 30 day, Stop date: 10/03/11 8:00:00 clindamycin 2011-0 No Eber L 600 mg, 4 Memoria 3-15 Anabelle mL, Route: l 16:00: IVPB, [place] 00 [id number], Start date: 09/03/11 11:00:00, Duration: 30 day, Stop date: 10/03/11 8:00:00 clindamycin 2012-0 No Eber L 600 mg, 4 Memoria 3-15 Anabelle mL, Route: l 16:00: IVPB, [place] 00 [id number], Start date: 09/03/11 11:00:00, Duration: 30 day, Stop date: 10/03/11 8:00:00 clindamycin 2012-0 No Eber L 600 mg, 4 Memoria 3-15 Anabelle mL, Route: l 16:00: IVPB, [place] 00 [id number], Start date: 09/03/11 11:00:00, Duration: [...] 3-15 Omidvar tab, l 13:39: Route: PO, [place] 00 Drug form: ERTAB, ONCE, Start date: 09/03/11 8:39:00, Stop date: 09/03/11 8:39:00 [place] 5/325 2011-0 No Rosalino 1 tab, M emoria oral tablet - Kavon Route: PO, l 05:00: Drug Form: Vin 00 TAB, Q4H, Start date: 09/03/11 0:00:00, Duration: 30 day, Stop date: 10/02/11 20:00:00 [place] 5/325 2011-0 No Rosalino 1 tab, M emoria oral tablet 09-02 Kavon Route: PO, l 05:00: Drug Form: [place] 00 TAB, Q4H, Start date: 09/03/11 0:00:00, Duration: 30 day, Stop date: 10/02/11 20:00:00 [place] 5/325 2011-0 No Rosalino 1 tab, M emoria oral tablet 09-02 Kavon Route: PO, l 05:00: Drug Form: [place] 00 TAB, Q4H, Start date: 09/03/11 0:00:00, Duration: 30 day, Stop date: 10/02/11 20:00:00 [place] 5/325 2011-0 No Rosalino 1 tab, M emoria oral tablet - Kavon Route: PO, l 05:00: Drug Form: Vin 00 TAB, Q4H, Start date: 09/03/11 0:00:00, Duration: 30 day, Stop date: 10/02/11 20:00:00 [place] 5/325 2011-0 No Rosalino 1 tab, M [...] 3-15 Anabelle cap, l 02:00: Route: PO, [place] 00 Drug form: CAP, Bedtime, Start date: [...] 3-15 Anabelle cap, l 02:00: Route: PO, [place] 00 Drug form: CAP, Bedtime, Start date: 09/02/11 21:00:00, Duration: 30 day, Stop date: 10/01/11 21:00:00 trazodone 2012-0 No Eber L 200 mg, 4 Memoria 100 mg oral 3-15 Anabelle tab, l tablet 02:00: Route: PO, Nidia nn 00 Drug form: TAB, Bedtime, Start date: 09/02/11 21:00:00, Duration: 30 day, Stop date: 10/01/11 21:00:00 Geodon 2012-0 No Ebre L 120 mg, 3 Memoria 3-15 Anabelle [...] 3-15 Anabelle cap, l 02:00: Route: PO, [place] 00 Drug form: CAP, Bedtime, Start date: [...] 3-14 Anabelle cap, l 17:00: Route: PO, [place] 00 Drug form: ERCAP, Daily, Give qAM after today's dose., Start date: 09/02/11 12:00:00, Duration: 30 day, Stop date: 10/02/11 9:00:00 [place] 5/325 2011-0 No Rosalino 1 tab, M emoria oral tablet 09-01 Kavon Route: PO, l 16:25: Drug Form: [place] 00 TAB, Q4H, PRN Pain, Start date: 09/02/11 11:25:00, Duration: 30 day, Stop date: 10/02/11 11:24:00 [place] 5/325 2011-0 No Rosalino 1 tab, M emoria oral tablet 09-01 Kavon Route: PO, l 16:25: Drug Form: Vin 00 TAB, Q4H, PRN Pain, Start date: 09/02/11 11:25:00, Duration: 30 day, Stop date: 10/02/11 11:24:00 [place] 5/325 2011-0 No Rosalino 1 tab, M emoria oral tablet 09-01 Kavon Route: PO, l 16:25: Drug Form: Vin 00 TAB, Q4H, PRN Pain, Start date: 09/02/11 11:25:00, Duration: 30 day, Stop date: 10/02/11 11:24:00 [place] 5/325 2011-0 No Rosalino 1 tab, M emoria oral tablet 3-14 Kavon Route: PO, l 16:25: Drug Form: Vin 00 TAB, Q4H, PRN Pain, Start date: 09/02/11 11:25:00, Duration: 30 day, Stop date: 10/02/11 11:24:00 [place] 325 2011-0 No Rosalino 1 tab, M emoria oral tablet -14 Kavon Route: PO, l 16:25: Drug Form: [place] 00 TAB, Q4H, PRN Pain, Start date: [...] Omidvar mL, Route: l 16:15: IVPB, Drug [place] 00 form: INJ, ONCE, Start date: 09/02/11 11:15:00, Stop date: 09/02/11 11:15:00 magnesium 2011-0 No [place] 4 gm, 50 Me moria sulfate 3-14 Omidvar mL, Route: l 16:15: IVPB, Drug [place] 00 form: INJ, ONCE, Start date: 09/02/11 11:15:00, Stop date: 09/02/11 11:15:00 magnesium 2011-0 No [place] 4 gm, 50 Me moria sulfate 3-14 Omidvar mL, Route: l 16:15: IVPB, Drug [place] 00 form: INJ, ONCE, Start date: 09/02/11 11:15:00, Stop date: 09/02/11 11:15:00 magnesium 2011-0 No [place] 4 gm, 50 Me moria sulfate 3-14 Omidvar mL, Route: l 16:15: IVPB, Drug Vin 00 form: INJ, ONCE, Start date: 09/02/11 11:15:00, Stop date: 09/02/11 11:15:00 Lovenox 2012-0 No Missael 40 mg, 0.4 Mem oria 3-14 Movva mL, Route: l 14:00: SUB-Q, [place] Drug form: INJ, Daily, Start date: 09/02/11 9:00:00, Duration: 30 day, Stop date: 10/01/11 9:00:00 vancomycin 2011-0 No Eber L 1 gm, Memoria 3-14 Anabelle Route: l 14:00: IVPB, Drug [place] 00 form: INJ, [id number], Start date: 09/02/11 9:00:00, Duration: 30 day, Stop date: 10/01/11 21:00:00 Lovenox 2012-0 No Missael 40 mg, 0.4 Mem oria 3-14 Movva mL, Route: l 14:00: SUB-Q, [place] Drug form: INJ, Daily, Start date: 09/02/11 9:00:00, Duration: 30 day, Stop date: 10/01/11 9:00:00 vancomycin 2011-0 No Eber L 1 gm, Memoria 3-14 Anabelle Route: l 14:00: IVPB, Drug form: INJ, [id number], Start date: 09/02/11 9:00:00, Duration: 30 day, Stop date: 10/01/11 21:00:00 Lovenox 2012-0 No Missael 40 mg, 0.4 Mem oria 3-14 Movva mL, Route: l 14:00: SUB-Q, [place] Drug form: INJ, Daily, Start date: 09/02/11 9:00:00, Duration: 30 day, Stop date: 10/01/11 9:00:00 vancomycin 2011-0 No Eber L 1 gm, Memoria 3-14 Anabelle Route: l 14:00: IVPB, Drug [place] 00 form: INJ, [id number], Start date: 09/02/11 9:00:00, Duration: 30 day, Stop date: 10/01/11 21:00:00 Lovenox 2012-0 No Missael 40 mg, 0.4 Mem oria 3-14 Movva mL, Route: l 14:00: SUB-Q, [place] 00 Drug form: INJ, Daily, Start date: 09/02/11 9:00:00, Duration: 30 day, Stop date: 10/01/11 9:00:00 vancomycin 2011-0 No Eber L 1 gm, Memoria 3-14 Anabelle Route: l 14:00: IVPB, Drug Vin 00 form: INJ, [id number], Start date: 09/02/11 9:00:00, Duration: 30 day, Stop date: 10/01/11 21:00:00 Lovenox 2011-0 No Missael 40 mg, 0.4 Mem oria 3-14 Movva mL, Route: l 14:00: SUB-Q, [place] 00 Drug form: INJ, Daily, Start date: 09/02/11 9:00:00, Duration: 30 day, Stop date: 10/01/11 9:00:00 vancomycin 2011-0 No Eber L 1 gm, Memoria 3-14 Anabelle Route: l 14:00: IVPB, Drug form: INJ, [id number], Start date: 09/02/11 9:00:00, Duration: 30 day, [...] L 600 mg, 4 Memoria (SCIP) 3-14 Anaeblle mL, Route: l 10:00: IVPB, [place] 00 [id number], Start date: 09/02/11 5:00:00, Duration: 3 doses or times, Stop date: 09/02/11 21:00:00 clindamycin 2012-0 No Eber L 600 mg, 4 Memoria (SCIP) 3-14 Anabelle mL, Route: l 10:00: IVPB, [place] 00 [id number], Start date: 09/02/11 5:00:00, Duration: [...] Brandon mL, Route: l 04:00: Connally IVPB, [place] 00 [id number], Start date: 09/01/11 23:00:00, Duration: [...] Brandon mL, Route: l 04:00: [place] IVPB, [place] 00 [id number], Start date: 09/01/11 23:00:00, Duration: [...] Brandon mL, Route: l 04:00: [place] IVPB, [place] [id number], Start date: 09/01/11 23:00:00, Duration: 3 doses or times, Stop date: 09/02/11 15:00:00 insulin No [place] 15 unit, Mendoza janice isophane-CLAY PUDDLER 3-14 Omidvar 0.15 mL, l H 02:00: Route: Vin SUB-Q, Drug form: INJ, Q12H, Start date: 09/01/11 21:00:00, Stop date: 10/01/11 9:00:00 insulin No [place] 15 unit, Mendoza janice isophane-CLAY PUDDLER 3-14 Omidvar 0.15 mL, l H 02:00: Route: Vin SUB-Q, Drug form: INJ, Q12H, Start date: 09/01/11 21:00:00, Stop date: 10/01/11 9:00:00 insulin No [place] 15 unit, Mendoza janice isophane-CLAY PUDDLER 3-14 Omidvar 0.15 mL, l H 02:00: Route: Vin SUB-Q, Drug form: INJ, Q12H, Start date: 09/01/11 21:00:00, Stop date: 10/01/11 9:00:00 insulin No [place] 15 unit, Mendoza janice isophane-CL[employer] P[employer]ER 3-14 Omidvar 0.15 mL, l H 02:00: Route: Vin SUB-Q, Drug form: INJ, Q12H, Start date: 09/01/11 21:00:00, Stop date: 10/01/11 9:00:00 insulin 0 No [place] 15 unit, Mendoza janice isophane-CL[employer] P[employer]ER 3-14 Omidvar 0.15 mL, l H 02:00: [...] 3-14 Barbra Route: l 01:07: Feliciano IVP, [place] 00 Q5Min, PRN Pain Score 4-6, Start [...] 3-14 Barbra Route: l 01:07: Feliciano IVP, [place] 00 Q5Min, PRN Elevated BP, Start date: [...] 3-14 [place] Route: l 01:07: Feliciano IVP, [place] 00 Q5Min, PRN Pain Score 4-6, Start date: 09/01/11 20:07:00, Duration: 5 doses or times, Stop date: Limited # of times naloxone No Mariaelena-Corea 0.04 mg, Memoria 3-14 [place]bra Route: l 01:07: Feliciano IVP, [place] 00 Q2MIN, PRN Narcotic Reversal, Start date: 09/01/11 20:07:00, Duration: 8 doses or times, Stop date: Limited # of times flumazenil No Mariaelena-Core[place] 0.2 mg, Memoria 3-14 [place] Route: l 01:07: Feliciano IVP, PRN, [place] 00 PRN Benzodiaze pine Reversal, Initial dose, Start date: 09/01/11 20:07:00, Duration: 30 day, Stop date: 10/01/11 20:06:00 ondansetron No Mariaelena-Corea 4 mg, Memoria 3-14 [place] Route: l 01:07: Feliciano IVP, ONCE, [place] 00 PRN Nausea & Vomiting, Start date: 09/01/11 20:07:00 labetalol No Mariaelena-Corea 5 mg, Me moria 3-14 [place] Route: l 01:07: Feliciano IVP, Vin 00 Q5Min, PRN Elevated BP, Start date: 09/01/11 20:07:00, Duration: 5 doses or times, Stop date: Limited # of times hydrALAZINE No Mariaelena-Corea 5 mg, Memoria 3-14 [place] Route: l 01:07: Feliciano IVP, [place] 00 Q5Min, PRN Elevated BP, Start date: 09/01/11 20:07:00, Duration: 4 doses or times, Stop date: Limited # of times hydromorpho No Mariaelena-Corea 0.5 mg, Memoria ne 3-14 [place] Route: l 01:07: Feliciano IVP, [place] 00 Q5Min, PRN Pain Score 4-6, Start [...] [place]bra Route: l 01:07: Feliciano IVP, PRN, [place] 00 PRN Benzodiaze pine Reversal, Initial dose, Start date: 09/01/11 20:07:00, Duration: 30 day, Stop date: 10/01/11 20:06:00 ondansetron No Mariaelena-Corea 4 mg, Memoria 3-14 [place] Route: l 01:07: Feliciano IVP, ONCE, [place] 00 PRN Nausea & Vomiting, Start date: [...] 3-14 [place] Route: l 01:07: Feliciano IVP, [place] 00 Q5Min, PRN Pain Score 4-6, Start [...] [place]bra Route: l 01:07: Feliciano IVP, ONCE, [place] 00 PRN Nausea & Vomiting, Start date: [...] 3-14 [place] Route: l 01:07: Feliciano IVP, [place] 00 Q2MIN, PRN Narcotic Reversal, Start date: 09/01/11 20:07:00, Duration: 8 doses or times, Stop date: Limited # of times flumazenil No Mariaelena-Corea 0.2 mg, Memoria 3-14 [place] Route: l 01:07: Feliciano IVP, PRN, [place] 00 PRN Benzodiaze pine Reversal, Initial dose, Start date: 09/01/11 20:07:00, Duration: 30 day, Stop date: 10/01/11 20:06:00 ondansetron No Mariaelena-Corea 4 mg, Memoria 3-14 [place] Route: l 01:07: Feliciano IVP, ONCE, Vin 00 PRN Nausea & Vomiting, Start date: 09/01/11 20:07:00 vancomycin No Mele 1 gm, Mem oria 3-14 [place] Route: l 01:00: IVPB, Drug Vin 00 form: INJ, [id number], Start date: 09/01/11 20:00:00, Duration: 30 day, Stop date: 10/01/11 8:00:00 vancomycin No Mele 1 gm, Mem oria 3-14 G[place] Route: l 01:00: IVPB, Drug Vin 00 form: INJ, [id number], Start date: 09/01/11 20:00:00, Duration: 30 day, Stop date: 10/01/11 8:00:00 vancomycin No Mele 1 gm, Mem oria 3-14 [place] Route: l 01:00: IVPB, Drug Vin 00 form: INJ, [id number], Start date: 09/01/11 20:00:00, Duration: 30 day, Stop date: 10/01/11 8:00:00 vancomycin No Mele 1 gm, Mem oria 3-14 [place] Route: l 01:00: IVPB, Drug Vin 00 form: INJ, [id number], Start date: 09/01/11 20:00:00, Duration: 30 day, Stop date: 10/01/11 8:00:00 vancomycin 2012-0 No Mele 1 gm, Mem oria 3-14 [place] Route: l 01:00: IVPB, Drug [place] 00 form: INJ, [id number], Start date: 09/01/11 20:00:00, Duration: 30 day, [...] Rate: 125 l 1,000 mL 00:55: ml/hr, [place] 00 Infuse over: 8 hr, Route: IV, Dosing Weight 68.2 kg, Total Volume: 1,000, Start date: 09/01/11 19:55:00, Duration: 30 day, Stop date: 10/01/11 19:54:00 Lactated 2011-0 No Charbel A 1,000 mL, Memoria Ringers IV 3-14 Wong Rate: 125 l 1,000 mL 00:55: ml/hr, [place] 00 Infuse over: 8 hr, Route: IV, Dosing Weight 68.2 kg, Total Volume: 1,000, Start date: 09/01/11 19:55:00, Duration: 30 day, Stop date: 10/01/11 19:54:00 Lactated 2011-0 No Charbel A 1,000 mL, Memoria Ringers IV 3-14 Wong Rate: 125 l 1,000 mL 00:55: ml/hr, [place] 00 Infuse over: 8 hr, Route: IV, Dosing Weight 68.2 kg, Total Volume: 1,000, Start date: 09/01/11 19:55:00, Duration: 30 day, Stop date: 10/01/11 19:54:00 vancomycin 2011-0 No Missael 1 gm, Memor ia 3-14 Movva Route: l 00:00: IVPB, Drug [place] 00 form: INJ, [id number], Start date: 09/01/11 19:00:00, Duration: 30 day, Stop date: 10/01/11 7:00:00 vancomycin 2011-0 No Missael 1 gm, Memor ia 3-14 Movva Route: l 00:00: IVPB, Drug [place] 00 form: INJ, [id number], Start date: 09/01/11 19:00:00, Duration: 30 day, Stop date: 10/01/11 7:00:00 vancomycin 2011-0 No Missael 1 gm, Memor ia 3-14 Movva Route: l 00:00: IVPB, Drug [place] 00 form: INJ, [id number], Start date: 09/01/11 19:00:00, Duration: 30 day, Stop date: 10/01/11 7:00:00 vancomycin 2011-0 No Missael 1 gm, Memor ia 3-14 Movva Route: l 00:00: IVPB, Drug [place] 00 form: INJ, [id number], Start date: 09/01/11 19:00:00, Duration: 30 day, Stop date: 10/01/11 7:00:00 vancomycin 2011-0 No Missael 1 gm, Memor ia 3-14 Movva Route: l 00:00: IVPB, Drug [place] 00 form: INJ, [id number], Start date: 09/01/11 19:00:00, Duration: 30 day, Stop date: 10/01/11 7:00:00 insulin 2011-0 No Missael 6 unit, Memori a aspart 3-13 Movva 0.06 mL, l 23:23: Route: [place] 00 SUB-Q, Drug form: SOLN, TID-Before Meals, PRN Blood Glucose Results, Start date: 09/01/11 18:23:00, Duration: 30 day, Stop date: 10/01/11 18:22:00 glucagon 2012-0 No Missael 1 mg, Memoria 3-13 Movva Route: IM, l 23:23: Drug form: [place] PDR/INJ, PRN, PRN Blood Glucose Results, Start [...] Movva Route: IM, l 23:23: Drug form: [place] PDR/INJ, PRN, PRN Blood Glucose Results, Start date: 09/01/11 18:23:00, Duration: 30 day, Stop date: 10/01/11 18:22:00 Dextrose 2011-0 No Missael 25 gm, 50 Mem oria 50% Syringe 3-13 Movva mL, Route: l 23:23: IVP, Drug [place] 00 Form: INJ, PRN, PRN Blood Glucose [...] Movva Route: IM, l 23:23: Drug form: [place] 00 PDR/INJ, PRN, PRN Blood Glucose Results, Start date: 09/01/11 18:23:00, Duration: 30 day, Stop date: 10/01/11 18:22:00 Dextrose 2011-0 No Missael 25 gm, 50 Mem oria 50% Syringe 3-13 Movva mL, Route: l 23:23: IVP, Drug [place] 00 Form: INJ, PRN, PRN Blood Glucose [...] Beni mL, Route: l 21:14: IVP, Drug [place] 00 form: INJ, Q4H, PRN Severe Pain, Start date: 09/01/11 16:14:00, Stop date: 10/01/11 16:13:00 morphine 2011-0 No Daja Shannan 2 mg, 1 M emoria Sulfate 3-13 Beni mL, Route: l 21:14: IVP, Drug [place] 00 form: INJ, Q4H, PRN Severe Pain, [...] mL, Me moria Ringers IV 3-13 Manuel [place] Rate: 100 l 1,000 mL 19:03: ml/hr, Vin 00 Infuse over: 10 hr, Route: IV, Dosing Weight 68.182 kg, Total Volume: 1,000, Start date: 09/01/11 14:03:00, Duration: 30 day, Stop date: 10/01/11 14:02:00 Lactated 2012-0 No Cesar 1,000 mL, Me moria Ringers IV 3-13 Manuel [place] Rate: 100 l 1,000 mL 19:03: ml/hr, [place] 00 Infuse over: 10 hr, Route: IV, Dosing Weight 68.182 kg, Total Volume: 1,000, Start date: 09/01/11 14:03:00, Duration: 30 day, Stop date: 10/01/11 14:02:00 Lactated 2012-0 No Cesar 1,000 mL, Me moria Ringers IV 3-13 Manuel [place] Rate: 100 l 1,000 mL 19:03: ml/hr, Vin 00 Infuse over: 10 hr, Route: IV, Dosing Weight 68.182 kg, Total Volume: 1,000, Start date: 09/01/11 14:03:00, Duration: 30 day, Stop date: 10/01/11 14:02:00 Lactated 2012-0 No Cesar 1,000 mL, Me moria Ringers IV 3-13 Manuel [place] Rate: 100 l 1,000 mL 19:03: ml/hr, Vin 00 Infuse over: 10 hr, Route: IV, Dosing Weight 68.182 kg, Total Volume: 1,000, Start date: 09/01/11 14:03:00, Duration: 30 day, Stop date: 10/01/11 14:02:00 Lactated 2012-0 No Cesar 1,000 mL, Me moria Ringers IV 3-13 Manuel [place] Rate: 100 l 1,000 mL 19:03: ml/hr, [place] 00 Infuse over: 10 hr, Route: IV, [...] 6:41:00 Lactated 2012-0 No [place] 2,000 mL, Menodza janice Ringers 3-13 [place] Rate: 100 l [...] Stop date: 09/01/11 10:28:00 Insulin 2011-0 No Eind 8 unit, Memoria regular 3-13 [place] 0.08 mL, l 15:28: Gurinder Route: [place] SUB-Q, Drug form: SOLN, ONCE, Priority: STAT, [...] Madden Rate: l 0.9% 14:53: Gurinder 1,000 [place] (Bolus) IV 00 ml/hr, 1,000 mL Infuse over: 1 hr, Route: IV, Dosing Weight 68.18 kg, Total Volume: 1,000, Bolus Dose, Priority: STAT, Start date: 09/01/11 9:53:00, Duration: 1 doses or times, Stop date: 09/01/11 10:52:00 Sodium 2012-0 No [place] 1,000 mL, Memori a Chloride 3-13 [place] Rate: l 0.9% 14:53: Gurinder 1,000 [place] (Bolus) IV 00 ml/hr, 1,000 mL Infuse [...] [place]en Rate: l 0.9% 14:53: Gurinder 1,000 [place] (Bolus) IV 00 ml/hr, 1,000 mL Infuse over: 1 hr, Route: IV, Dosing Weight 68.18 kg, Total Volume: 1,000, Bolus Dose, Priority: STAT, Start date: 09/01/11 9:53:00, Duration: 1 doses or times, Stop date: 09/01/11 10:52:00 morphine 2012-0 No Ju 4 mg, 1 Mem oria Sulfate 3-13 [place] mL, Route: l 13:28: Sandeep IVP, Drug [...] 3-13 [place] Rate: l 0.9% 10:41: 1,000 [place] (Bolus) IV 00 ml/hr, 1000 mL Infuse [...] 3-13 [place] Rate: l 0.9% 10:41: 1,000 [place] (Bolus) IV 00 ml/hr, 1000 mL Infuse [...] No Bee L 4 mg, Memoria 3-13 [place] Route: l 09:06: IVP, Drug Vin 00 form: INJ, ONCE, Priority: STAT, Start date: 09/01/11 4:06:00, Stop date: 09/01/11 4:06:00 morphine 2011-0 No Bee L 4 mg, Mem oria Sulfate 3-13 [place] Route: l 09:06: IVP, ONCE, Vin 00 Priority: STAT, Start date: 09/01/11 4:06:00, Stop date: 09/01/11 4:06:00 ondansetron 2011-0 No Bee L 4 mg, Memoria 3-13 [place] Route: l 09:06: IVP, Drug Vin 00 form: INJ, ONCE, Priority: STAT, Start date: 09/01/11 4:06:00, Stop date: 09/01/11 4:06:00 morphine 2011-0 No Bee L 4 mg, Mem oria Sulfate - [place] Route: l 09:06: IVP, ONCE, Vin 00 Priority: STAT, Start date: 09/01/11 4:06:00, Stop date: 09/01/11 4:06:00 ondansetron 2011-0 No Bee L 4 mg, Memoria 3- [place] Route: l 09:06: IVP, Drug [place] 00 form: INJ, ONCE, Priority: STAT, Start date: 09/01/11 4:06:00, Stop date: 09/01/11 4:06:00 morphine 2011-0 No Bee L 4 mg, Mem oria Sulfate - [place] Route: l 09:06: IVP, ONCE, [place] 00 Priority: STAT, Start date: 09/01/11 4:06:00, Stop date: 09/01/11 4:06:00 ondansetron 2011-0 No Bee L 4 mg, Memoria - [place] Route: l 09:06: IVP, Drug [place] 00 form: INJ, ONCE, Priority: STAT, Start date: 09/01/11 4:06:00, Stop date: 09/01/11 4:06:00 morphine 2011-0 No Bee L 4 mg, Mem oria Sulfate 08-31 [place] Route: l 09:06: IVP, ONCE, Vin 00 Priority: STAT, Start date: 09/01/11 4:06:00, Stop date: 09/01/11 4:06:00 ondansetron 2011-0 No Bee L 4 mg, Memoria 3-13 [place] Route: l 09:06: IVP, Drug [place] 00 form: INJ, ONCE, Priority: STAT, Start date: 09/01/11 4:06:00, Stop date: 09/01/11 4:06:00 morphine 2011-0 No Bee L 4 mg, Mem oria Sulfate - [place] Route: l 09:06: IVP, ONCE, Vin 00 Priority: STAT, Start date: 09/01/11 4:06:00, Stop date: 09/01/11 4:06:00 Sodium 2011-0 No Bee L 1,000 mL, M emoria Chloride 3-13 [place] Rate: l 0.9% 08:42: 1,000 Vin (Bolus) IV 00 ml/hr, 1000 mL Infuse over: 1 hr, Route: IV, Dosing Weight 68.182 kg, Total Volume: 1,000, [place] Dose, Priority: STAT, Start date: 09/01/11 3:42:00, Duration: 1 doses or times, Stop date: 09/01/11 4:41:00 Sodium 2012-0 No Bee L 1,000 mL, M emoria Chloride 3-13 [place] Rate: l 0.9% 08:42: 1,000 [place] (Bolus) IV 00 ml/hr, 1000 mL Infuse over: 1 hr, Route: IV, Dosing Weight 68.182 kg, Total Volume: 1,000, [place] Dose, Priority: STAT, Start date: 09/01/11 3:42:00, Duration: 1 doses or times, Stop date: 09/01/11 4:41:00 Sodium 2011-0 No Bee L 1,000 mL, M emoria Chloride 3- [place] Rate: l 0.9% 08:42: 1,000 Vin (Bolus) IV 00 ml/hr, 1000 mL Infuse over: 1 hr, Route: IV, Dosing Weight 68.182 kg, Total Volume: 1,000, [place] Dose, Priority: STAT, Start date: 09/01/11 3:42:00, Duration: 1 doses or times, Stop date: 09/01/11 4:41:00 Sodium 2011-0 No Bee L 1,000 mL, M emoria Chloride 3- [place] Rate: l 0.9% 08:42: 1,000 Vin (Bolus) IV 00 ml/hr, 1000 mL Infuse over: 1 hr, Route: IV, Dosing Weight 68.182 kg, Total Volume: 1,000, [place] Dose, Priority: STAT, Start date: 09/01/11 3:42:00, Duration: 1 doses or times, Stop date: 09/01/11 4:41:00 Sodium 2012-0 No Bee L 1,000 mL, M emoria Chloride 3-13 [place] Rate: l 0.9% 08:42: 1,000 [place] (Bolus) IV 00 ml/hr, 1000 mL Infuse over: 1 hr, Route: IV, Dosing Weight 68.182 kg, Total Volume: 1,000, [place] Dose, Priority: STAT, Start date: 09/01/11 3:42:00, Duration: 1 doses or times, Stop date: 09/01/11 4:41:00 Insulin 2011-0 No Bee L 8 unit, Me moria regular 3-13 [place] 0.08 mL, l 08:30: Route: [place] 00 IVP, Drug form: SOLN, ONCE, Priority: STAT, Start date: 09/01/11 3:30:00, Stop date: 09/01/11 3:30:00 Insulin 2011-0 No Bee L 8 unit, Me moria regular 3-13 [place] 0.08 mL, l 08:30: Route: [place] 00 IVP, Drug form: SOLN, ONCE, Priority: STAT, Start date: 09/01/11 3:30:00, Stop date: 09/01/11 3:30:00 Insulin 2011-0 No Bee L 8 unit, Me moria regular 3-13 [place] 0.08 mL, l 08:30: Route: Vin 00 [...] L 8 unit, Me moria regular 3-13 [place] 0.08 mL, l 08:30: Route: [place] 00 IVP, Drug form: SOLN, ONCE, Priority: [...] L 1,000 mL, M emoria Chloride 3-13 [place] Rate: l 0.9% 07:29: 1,000 [place] (Bolus) IV 00 ml/hr, 1,000 mL Infuse over: 1 hr, Route: IV, Dosing Weight 68.182 kg, Total Volume: 1,000, [place] Dose, Priority: STAT, Start date: 09/01/11 2:29:00, Duration: 1 doses or times, Stop date: 09/01/11 3:28:00 Sodium 2011-0 No Bee L 1,000 mL, M emoria Chloride 3-13 [place] Rate: l 0.9% 07:29: 1,000 [place] (Bolus) IV 00 ml/hr, 1,000 mL Infuse over: 1 hr, Route: IV, Dosing Weight 68.182 kg, Total Volume: 1,000, [place] Dose, Priority: STAT, Start date: 09/01/11 2:29:00, Duration: 1 doses or times, Stop date: 09/01/11 3:28:00 Sodium 2011-0 No Bee L 1,000 mL, M emoria Chloride 3-13 [place] Rate: l 0.9% 07:29: 1,000 [place] (Bolus) IV 00 ml/hr, 1,000 mL Infuse over: 1 hr, Route: IV, Dosing Weight 68.182 kg, Total Volume: 1,000, [place] Dose, Priority: STAT, Start date: 09/01/11 2:29:00, Duration: 1 doses or times, Stop date: 09/01/11 3:28:00 Sodium 2011-0 No Bee L 1,000 mL, M emoria Chloride 3-13 [place] Rate: l 0.9% 07:29: 1,000 [place] (Bolus) IV 00 ml/hr, 1,000 mL Infuse over: 1 hr, Route: IV, Dosing Weight 68.182 kg, Total Volume: 1,000, [place] Dose, Priority: STAT, Start date: 09/01/11 2:29:00, Duration: 1 doses or times, Stop date: 09/01/11 3:28:00 potassium 2012-0 No Brooks Noam 40 mEq, 2 Memoria chloride 3-04 [place] tab, l 15:00: Route: PO, [place] Drug form: ERTAB, BID, Start date: 08/23/11 [...] Substituti on Allowed, TAB lisinopril 2011-0 Yes Brooks Noam 40 mg, 2 Memoria 20 mg oral 3-04 [place] tab, PO, l tablet 14:44: Daily, 60 Jake n 39 tab, 3, 3, Substituti on Allowed, TAB lisinopril 2011- Yes Brooks Noam 40 mg, 2 Memoria 20 mg oral 3-04 [place] tab, PO, l tablet 14:44: Daily, 60 Jake n 39 tab, 3, 3, Substituti on Allowed, TAB lisinopril 2011-0 Yes Brooks Noam 40 mg, 2 Memoria 20 mg oral 3-04 [place] tab, PO, l tablet 14:44: Daily, 60 Jake n 39 tab, 3, 3, Substituti on Allowed, TAB lisinopril 2011-0 Yes Brooks Noam 40 mg, 2 Memoria 20 mg oral 3-04 [place] tab, PO, l tablet 14:44: Daily, 60 Jake n 39 tab, 3, 3, Substituti on Allowed, TAB lisinopril 2011- Yes Brooks Noam 40 mg, 2 Memoria 20 mg oral 3-04 [place] tab, PO, l tablet 14:44: Daily, 60 Jake n 39 tab, 3, 3, Substituti on Allowed, TAB Novolin N Yes Brooks Noam 18 Units, Memoria 100 3-04 [place] SUB-Q, l units/mL 14:42: BID, 3 Vin subcutaneou 04 vial, 3, s injection 3, Substituti on Allowed, SUSP Novolin N Yes Didier Noam 18 Units, Memoria 100 3-04 [place] SUB-Q, l units/mL 14:42: BID, 3 [place] subcutaneou 04 vial, 3, s injection 3, Substituti on Allowed, SUSP Novolin N Yes Didier Noam 18 Units, Memoria 100 3-04 [place] SUB-Q, l units/mL 14:42: BID, 3 [place] subcutaneou 04 vial, 3, s injection 3, Substituti on Allowed, SUSP Novolin N Yes Didier Ramonais 18 Units, Memoria 100 3-04 [place] SUB-Q, l units/mL 14:42: BID, 3 [place] subcutaneou 04 vial, 3, s injection 3, Substituti on Allowed, SUSP Novolin N Yes Didier Ramonais 18 Units, Memoria 100 3-04 [place] SUB-Q, l units/mL 14:42: BID, 3 Vin subcutaneou 04 vial, 3, s injection 3, Substituti on Allowed, SUSP insulin Yes Didier Ramonais 5 Units, Memoria regular 3-04 [place] SUB-Q, l human 14:40: TID, 30 [place] recombinant 10 vial, 3, 100 3, units/mL Substituti injectable on solution Allowed, before breakfast lunch and dinner, SOLNbefore breakfast lunch and dinner insulin Yes Didier Noam 5 Units, Memoria regular 3-04 [place] SUB-Q, l human 14:40: TID, 30 [place] recombinant 10 vial, 3, 100 3, units/mL Substituti injectable on solution Allowed, before breakfast lunch and dinner, SOLNbefore breakfast lunch and dinner insulin Yes Brooks Noam 5 Units, Memoria regular 3-04 [place] SUB-Q, l human 14:40: TID, 30 [place] recombinant 10 vial, 3, 100 3, units/mL Substituti injectable on solution Allowed, before breakfast lunch and dinner, SOLNbefore breakfast lunch and dinner insulin 2012-0 Yes Brooks Noam 5 Units, Memoria regular 3-04 [place] SUB-Q, l human 14:40: TID, 30 Vin recombinant 10 vial, 3, 100 3, units/mL Substituti injectable on solution Allowed, before breakfast lunch and dinner, SOLNbefore breakfast lunch and dinner insulin 2011-0 Yes Brooks Noam 5 Units, Memoria regular 3-04 [place] SUB-Q, l human 14:40: TID, 30 [place] recombinant 10 vial, 3, 100 3, units/mL [...] 3-04 [place] 100 mL, l 14:00: Route: [place] 00 IVPB, Drug form: INJ, Q2H, Start [...] 3-04 [place] 100 mL, l 14:00: Route: [place] 00 IVPB, Drug form: INJ, Q2H, Start date: 08/23/11 8:00:00, Duration: 2 doses or times, Stop date: 08/23/11 10:00:00 calcium 2011-0 No Brooks Noam 1 gm, Mem oria chloride 3-04 [place] Route: l 13:28: IVPB, [place] 00 ONCE, Priority: STAT, Start date: 08/23/11 7:28:00, Stop date: 08/23/11 7:28:00 calcium 2011-0 No Brooks Noam 1 gm, Mem oria chloride 3-04 [place] Route: l 13:28: IVPB, Vin 00 ONCE, Priority: STAT, Start date: 08/23/11 7:28:00, Stop date: 08/23/11 7:28:00 calcium 2011-0 No Brooks Noam 1 gm, Mem oria chloride 3-04 [place] Route: l 13:28: IVPB, [place] 00 ONCE, Priority: STAT, Start date: 08/23/11 7:28:00, Stop date: 08/23/11 7:28:00 calcium 2011-0 No Brooks Noam 1 gm, Mem oria chloride 3-04 [place] Route: l 13:28: IVPB, [place] 00 ONCE, Priority: STAT, Start date: 08/23/11 7:28:00, Stop date: 08/23/11 7:28:00 calcium 2011-0 No Brooks Noam 1 gm, Mem oria chloride 3-04 [place] Route: l 13:28: IVPB, Vin 00 ONCE, Priority: STAT, Start date: 08/23/11 7:28:00, Stop date: 08/23/11 7:28:00 potassium 2011-0 No Brooks Noam 40 mEq, Memoria chloride 3-04 [place] Route: IV, l 12:29: ONCE, [place] 00 Start date: 08/23/11 6:29:00, Stop date: 08/23/11 6:29:00 potassium 2011-0 No Brooks Noam 40 mEq, Memoria chloride 3-04 [place] Route: IV, l 12:29: ONCE, [place] 00 Start date: 08/23/11 6:29:00, Stop date: 08/23/11 6:29:00 potassium 2011-0 No Brooks Noam 40 mEq, Memoria chloride 3-04 [place] Route: IV, l 12:29: ONCE, Start date: 08/23/11 6:29:00, Stop date: 08/23/11 6:29:00 potassium 2011-0 No Brooks Noam 40 mEq, Memoria chloride 3-04 [place] Route: IV, l 12:29: ONCE, [place] 00 Start date: 08/23/11 6:29:00, Stop date: [...] [place] mL, Route: l 12:26: IVPB, Drug [place] 00 form: INJ, ONCE, Total dose = [...] [place] mL, Route: l 12:26: IVPB, Drug [place] 00 form: INJ, ONCE, Total dose = [...] Rodriguez 10 mL, l 16:25: Ahmed Route: [place] 00 IVPB, ONCE, Start date: 08/22/11 10:25:00, Stop date: 08/22/11 10:25:00 calcium 2012-0 No [place] 1,000 mg, Mem oria gluconate 3-03 [place] 10 mL, l 16:25: Ahmed Route: [place] 00 IVPB, ONCE, Start date: 08/22/11 10:25:00, Stop date: 08/22/11 10:25:00 calcium 2012-0 No [place] 1,000 mg, Mem oria gluconate 3-03 [place] 10 mL, l 16:25: Ahmed Route: [place] 00 IVPB, ONCE, Start date: 08/22/11 10:25:00, [...] [place] mL, Route: l 13:26: IVPB, Drug [place] 00 form: INJ, ONCE, Total dose = 2 gm, Start date: 08/22/11 7:26:00, Duration: 1 doses or times, Stop date: 08/22/11 7:26:00 magnesium 2012-0 No Brooks Noam 2 gm, 50 Memoria sulfate 3-03 [place] mL, Route: l 13:26: IVPB, Drug [place] 00 form: INJ, ONCE, Total dose = [...] Stop date: 08/22/11 7:26:00 magnesium 2011-0 No Didier Ramonais 2 gm, 50 Memoria sulfate 3-03 [place] [...] 3-02 [place] tab, l 15:00: Route: PO, [place] 00 Drug form: TAB, Daily, Start date: 08/21/11 9:00:00, Stop date: 09/19/11 9:00:00 lisinopril 2012-0 No Brooks Noam 40 mg, 2 Memoria 3-02 [place] tab, l 15:00: Route: PO, Vin 00 Drug form: TAB, Daily, Start date: 08/21/11 9:00:00, Stop date: 09/19/11 9:00:00 lisinopril 2012-0 No Brooks Noam 40 mg, 2 Memoria 3-02 [place] tab, l 15:00: Route: PO, [place] 00 Drug form: TAB, Daily, Start date: 08/21/11 9:00:00, Stop date: 09/19/11 9:00:00 lisinopril 2012-0 No Brooks Noam 40 mg, 2 Memoria 3-02 [place] tab, l 15:00: Route: PO, [place] 00 Drug form: TAB, Daily, Start date: 08/21/11 9:00:00, Stop date: 09/19/11 9:00:00 lisinopril 2011-0 No Brooks Noam 40 mg, 2 Memoria 3-02 [place] tab, l 15:00: Route: PO, [place] 00 Drug form: TAB, Daily, Start date: 08/21/11 9:00:00, Stop date: 09/19/11 9:00:00 hydrALAZINE 2011-0 No Yury 10 mg, 0.5 Memoria 3-02 [place] mL, Route: l 14:43: Rivero IVP, Drug He form: INJ, Q6H, PRN Hypertensi on, Start date: 08/21/11 8:43:00, Duration: 30 day, Stop date: 09/20/11 8:42:00 hydrALAZINE 2011-0 No Yury 10 mg, 0.5 Memoria 3-02 [place] mL, Route: l 14:43: Rivero IVP, Drug He form: INJ, Q6H, PRN Hypertensi on, Start date: 08/21/11 8:43:00, Duration: 30 day, Stop date: 09/20/11 8:42:00 hydrALAZINE 2011-0 No Yury 10 mg, 0.5 Memoria 3-02 [place] mL, Route: l 14:43: Rivero IVP, Drug [...] Rodriguez tab, l 20:30: Ahmed Route: PO, Ajke n 00 Drug form: TAB, Q6H, PRN [...] mL, Route: l 17:15: Ahmed IVP, Drug [place] 00 form: INJ, Q8H, PRN Nausea, Start date: 08/20/11 11:15:00, Duration: 30 day, Stop date: 09/19/11 11:14:00 Zofran 2011-0 No [place] 4 mg, 2 Memori a 3-01 [place] mL, Route: l 17:15: Ahmed IVP, Drug [place] 00 form: INJ, Q8H, PRN Nausea, Start date: 08/20/11 11:15:00, Duration: 30 day, Stop date: 09/19/11 11:14:00 Zofran 2011-0 No [place] 4 mg, 2 Memori a 3-01 [place] mL, Route: l 17:15: Ahmed IVP, Drug [place] 00 form: INJ, Q8H, PRN Nausea, Start date: 08/20/11 11:15:00, Duration: 30 day, Stop date: 09/19/11 11:14:00 Zofran 2011-0 No [place] 4 mg, 2 Memori a 3-01 [place] mL, Route: l 17:15: Ahmed IVP, Drug [place] 00 form: INJ, Q8H, PRN Nausea, Start date: 08/20/11 11:15:00, Duration: 30 day, Stop date: 09/19/11 11:14:00 Zofran 2012-0 No [place] 4 mg, 2 Memori a 3- [place] mL, Route: l 17:15: Ahmed IVP, Drug [place] 00 form: INJ, Q8H, PRN Nausea, Start date: 08/20/11 11:15:00, Duration: 30 day, Stop date: 09/19/11 11:14:00 insulin 2011-0 No Yury 10 unit, Mem oria isophane-CLAY PUDDLER 08-19 [place] Route: l H 16:00: [place] SUB-Q, Nidia nn 00 ONCE, Start date: 08/20/11 10:00:00, Stop date: 08/20/11 10:00:00 insulin 2011-0 No Yury 10 unit, Mem oria isophane-CLAY PUDDLER 08-19 [place] Route: l H 16:00: [place] SUB-Q, Nidia nn 00 ONCE, Start date: 08/20/11 10:00:00, Stop date: 08/20/11 10:00:00 insulin 2011-0 No Yury 10 unit, Mem oria isophane-CLAY PUDDLER 08-19 [place] Route: l H 16:00: [place] SUB-Q, Nidia nn 00 ONCE, Start date: 08/20/11 10:00:00, Stop date: 08/20/11 10:00:00 insulin 2011-0 No Yury 10 unit, Mem oria isophane-CLAY PUDDLER 08-19 [place] Route: l H 16:00: River[place] SUB-Q, Nidia nn 00 ONCE, Start date: 08/20/11 10:00:00, Stop date: 08/20/11 10:00:00 insulin 2011-0 No Yury 10 unit, Mem oria isophane-CLAY PUDDLER 08-19 [place] Route: l H 16:00: Rivero SUB-Q, Nidia nn 00 ONCE, Start date: 08/20/11 10:00:00, Stop date: 08/20/11 10:00:00 trazodone 2011-0 Yes 200 mg, 2 Mem oria 100 mg oral 3-01 tab, PO, l tablet 15:37: Bedtime, [place] 27 90 tab, Substituti on Allowed, TAB [...] 3-01 tab, PO, l tablet 15:37: Bedtime, [place] 27 90 tab, Substituti on Allowed, TAB [...] tab, PO, l tablet 15:35: BID, 60 [place] 25 tab, Substituti on Allowed, TAB benztropine 2012-0 Yes 1 mg, 1 Mem oria 1 mg oral 3-01 tab, PO, l tablet 15:35: BID, 60 [place] 25 tab, Substituti on Allowed, TAB benztropine [...] cap, Substituti on Allowed, CAP Geodon 60 Yes 120 mg, 2 Mem oria mg oral 3-01 cap, PO, l capsule 15:35: Bedtime, Jake n 12 60 cap, Substituti on Allowed, CAP insulin No Yury 10 unit, Mem oria isophane-CLAY PUDDLER 3- [place] Route: l H 15:00: Rivero [...] 2011-0 No Yury 10 unit, Mem oria isophane-CLAY PUDDLER - Gato Route: l H 15:00: Rivero [...] 2011-0 No Yury 10 unit, Mem oria isophane-CLAY PUDDLER 3-01 Gato Route: l H 15:00: Rivero [...] 2011-0 No Yury 10 unit, Mem oria isophane-CLAY PUDDLER 3-01 Gato Route: l H 15:00: Rivero [...] 2011-0 No Yury 10 unit, Mem oria isophane-CLAY PUDDLER 3- Gato Route: l H 15:00: Rivero [...] 2011- No Yury 75 mg, 1 Memoria - [...] Yury 6 unit, Mendoza janice regular 08-19 Gaot 0.06 mL, l 09:38: Mat Route: Nidia nn 00 SUB-Q, Drug [...] 3:38:00 Insulin 2011-0 No Yury 6 unit, Menodza janice regular 3-01 Gato 0.06 mL, l 09:38: Rivero Route: Nidia nn 00 SUB-Q, Drug form: SOLN, ONCE, Start date: 08/20/11 3:38:00, Stop date: 08/20/11 3:38:00 Insulin 2011-0 No Brooks Noam 10 unit, Memoria regular - Akmal SUB-Q, l 09:28: BID, [place] 23 Substituti on Allowed Insulin No Brooks Noam 10 unit, Memoria regular - Akmal SUB-Q, l 09:28: BID, [place] 23 Substituti on Allowed Insulin 2011- No Brooks Noam 10 unit, Memoria regular - Akmal SUB-Q, l 09:28: BID, Vin 23 Substituti on Allowed Insulin No Brooks Noam 10 unit, Memoria regular - Akmal SUB-Q, l 09:28: BID, Vin 23 Substituti on Allowed Insulin 2012-0 No Brooks Noam 10 unit, Memoria regular 3- Akmal SUB-Q, l 09:28: BID, [place] 23 Substituti on Allowed insulin 2011-0 No 10 unit, Memori a isophane-CLAY PUDDLER 3- SUB-Q, l H 09:26: BID, Vin 18 Substituti on Allowed insulin 0 No 10 unit, Memori a isophane-CLAY PUDDLER 3- SUB-Q, l H 09:26: BID, Vin 18 Substituti on Allowed insulin 0 No 10 unit, Memori a isophane-CLAY PUDDLER 3-01 SUB-Q, l H 09:26: BID, [place] 18 Substituti on Allowed insulin No 10 unit, Memori a isophane-CLAY PUDDLER 3- SUB-Q, l H 09:26: BID, [place] 18 Substituti on Allowed insulin No 10 unit, Memori a isophane-CLAY PUDDLER 3- SUB-Q, l H 09:26: BID, Vin 18 Substituti on Allowed NS 1,000 mL No Brooks Noam 1,000 mL, Memoria - Akmal Rate: 150 l 09:06: ml/hr, [place] 00 Infuse over: 6.7 hr, Route: IV, [...] 0 No Brooks Noam 1,000 mL, Memoria 3 [...] 2011-0 No Brooks Noam 1,000 mL, Memoria 3-01 Akmal Rate: 150 l 09:06: ml/hr, Vin 00 Infuse over: 6.7 hr, Route: IV, Total Volume: 1,000, Start date: 08/20/11 3:06:00, Duration: 30 day, Stop date: 09/19/11 3:05:00 insulin 2011-0 No Yury 3 unit, Mendoza janice aspart 3-01 Gato 0.03 mL, l 09:06: Rivero Route: Nidai nn 00 SUB-Q, Drug form: SOLN, Bedtime, PRN Blood Glucose Results, Start date: 08/20/11 3:06:00, Duration: 30 day, Stop date: 09/19/11 3:05:00 NS 1,000 mL 2011-0 No Brooks Noam 1,000 mL, Memoria 3-01 [...] 2011-0 No Brooks Noam 1,000 mL, Memoria 3-01 [...] Gato mL, Route: l 09:00: Rivero SUB-Q, Nidai nn 00 Drug form: INJ, Daily, Priority: Routine, Start date: 08/20/11 3:00:00, Duration: 30 day, Stop date: 09/18/11 9:00:00 enoxaparin 2012-0 No Yury 40 mg, 0.4 Memoria 3-01 Gato mL, Route: l 09:00: Rivero SUB-Q, Nidia nn 00 Drug form: INJ, Daily, Priority: Routine, Start date: 08/20/11 3:00:00, Duration: 30 day, Stop date: 09/18/11 9:00:00 insulin 2011-0 No Yury 18 unit, Mem oria isophane-CLAY PUDDLER 3-01 [place] 0.18 mL, l H 08:58: [place] Route: Nidia nn 00 SUB-Q, Drug form: INJ, Q12H, Start date: 08/20/11 2:58:00, Stop date: 09/18/11 21:00:00 insulin 2011-0 No Yury 18 unit, Mem oria isophane-CLAY PUDDLER 3-01 [place] 0.18 mL, l H 08:58: [place] Route: Nidia nn 00 SUB-Q, Drug form: INJ, Q12H, Start date: 08/20/11 2:58:00, Stop date: 09/18/11 21:00:00 insulin 2011-0 No Yury 18 unit, Mem oria isophane-CLAY PUDDLER 3-01 [place] 0.18 mL, l H 08:58: [place] Route: Nidia nn 00 SUB-Q, Drug form: INJ, Q12H, Start date: 08/20/11 2:58:00, Stop date: 09/18/11 21:00:00 insulin 2011-0 No Yury 18 unit, Mem oria isophane-CLAY PUDDLER 3-01 [place] 0.18 mL, l H 08:58: [place] Route: Nidia nn 00 SUB-Q, Drug form: INJ, Q12H, Start date: 08/20/11 2:58:00, Stop date: 09/18/11 21:00:00 insulin 2011-0 No Yury 18 unit, Mem oria isophane-CLAY PUDDLER 3-01 [place] 0.18 mL, l H 08:58: [...] 2011-0 No [facility] Sy[facility] 3-01 [place] mL, [...] Dextrose No Yury 25 gm, [facility] Syringe 3-01 [place] mL, [...] No Hughes-Jason 4 mg, M emoria 08-19 [place] Route: l 07:42: Dawson IVP, Drug Herm naeem 00 Pu form: INJ, ONCE, Priority: STAT, Start date: 08/20/11 1:42:00, Stop date: 08/20/11 1:42:00 ondansetron 2011-0 No Hughes-Jason 4 mg, M emoria 08-19 [place] Route: l 07:42: [place] IVP, Drug Herm naeem 00 Pu form: INJ, ONCE, Priority: STAT, Start date: 08/20/11 1:42:00, Stop date: 08/20/11 1:42:00 ondansetron 2011-0 No Hughes-Jason 4 mg, emoria 08-19 [place] Route: l 07:42: [place] IVP, Drug Herm naeem 00 Pu form: INJ, ONCE, Priority: STAT, Start date: 08/20/11 1:42:00, Stop date: 08/20/11 1:42:00 ondansetron 2011-0 No Hughes-Jason 4 mg, M emoria 08-19 [place] Route: l 07:42: [place] IVP, Drug Herm naeem 00 Pu form: INJ, ONCE, Priority: STAT, Start date: 08/20/11 1:42:00, Stop date: 08/20/11 1:42:00 ondansetron 2011-0 No Hughes-Jason 4 mg, M emoria 08-19 [place] Route: l 07:42: [place] IVP, Drug Herm naeem 00 Pu form: INJ, ONCE, Priority: STAT, Start date: 08/20/11 1:42:00, Stop date: 08/20/11 1:42:00 GI cocktail No Hughes-Jason 30 ml, Memoria 08-19 [place] Route: PO, l 05:12: [place] Drug Form: Her braden 00 Pu SUSP, ONCE, STAT, Start date: 08/19/11 23:12:00, Stop date: 08/19/11 23:12:00 GI cocktail No Hughes-Jason 30 ml, Memoria 08-19 [place] Route: PO, l 05:12: [place] Drug Form: Her braden 00 Pu SUSP, ONCE, STAT, Start date: 08/19/11 23:12:00, Stop date: 08/19/11 23:12:00 GI cocktail No Hughes-Jason 30 ml, Memoria 08-19 [place] Route: PO, l 05:12: [place] Drug Form: Her braden 00 Pu SUSP, ONCE, STAT, Start date: 08/19/11 23:12:00, Stop date: 08/19/11 23:12:00 GI cocktail No Hughes-Jason 30 ml, Memoria 08-19 [place] Route: PO, l 05:12: [place] Drug Form: Her braden 00 Pu SUSP, ONCE, STAT, Start date: 08/19/11 23:12:00, Stop date: 08/19/11 23:12:00 GI cocktail No Hughes-Jason 30 ml, Memoria 08-19 [place] Route: PO, l 05:12: [place] Drug Form: Her braden 00 Pu SUSP, ONCE, STAT, Start date: 08/19/11 23:12:00, Stop date: 08/19/11 23:12:00 ondansetron No Hughes-Jason 4 mg, M emoria 08-19 [place] Route: PO, l 05:10: [place] Drug form: Her braden 00 Pu TABDIS, ONCE, Priority: STAT, Start date: 08/19/11 23:10:00, Stop date: 08/19/11 23:10:00 Lactated 2011- No Hughes-Jason 1,000 mL, Memoria Ringers 08-19 [place] Rate: l (Bolus) IV 05:10: Dawson 1,000 He [place] 1000 mL 00 Pu ml/hr, Infuse over: 1 hr, Route: IV, Total Volume: 1,000, Bolus Dose, Priority: STAT, Start date: 08/19/11 23:10:00, Duration: 1 doses or times, Stop date: 08/20/11 0:09:00 ondansetron 2012-0 No Hughes-Jason 4 mg, M emoria 3- [place] Route: PO, l 05:10: [place] Drug form: Her braden 00 Pu TABDIS, ONCE, Priority: STAT, Start date: 08/19/11 23:10:00, Stop date: 08/19/11 23:10:00 Lactated 2011-0 No Hughes-Jason 1,000 mL, Memoria Ringers 3- [place] Rate: l (Bolus) IV 05:10: [place] 1,000 He rmann 1000 mL 00 Pu ml/hr, Infuse over: 1 hr, Route: IV, Total Volume: 1,000, Bolus Dose, Priority: STAT, Start date: 08/19/11 23:10:00, Duration: 1 doses or times, Stop date: 08/20/11 0:09:00 ondansetron 2011-0 No Hughes-Jason 4 mg, emoria 3- [place] Route: PO, l 05:10: [place] Drug form: Her braden 00 Pu TABDIS, ONCE, Priority: STAT, Start date: 08/19/11 23:10:00, Stop date: 08/19/11 23:10:00 Lactated 2011-0 No Hughes-Jason 1,000 mL, Memoria Ringers 3- [place] Rate: l (Bolus) IV 05:10: [place] 1,000 He rmann 1000 mL 00 Pu ml/hr, Infuse over: 1 hr, Route: IV, Total Volume: 1,000, Bolus Dose, Priority: STAT, Start date: 08/19/11 23:10:00, Duration: 1 doses or times, Stop date: 08/20/11 0:09:00 ondansetron 2012-0 No Hughes-Jaosn 4 mg, M emoria 3- [place] Route: PO, l 05:10: [place] Drug form: Her braden 00 Pu TABDIS, ONCE, Priority: STAT, Start date: 08/19/11 23:10:00, Stop date: 08/19/11 23:10:00 Lactated 2011-0 No Hughes-Jason 1,000 mL, Memoria Ringers 3- [place] Rate: l (Bolus) IV 05:10: [place] 1,000 He rmann 1000 mL 00 Pu ml/hr, Infuse over: 1 hr, Route: IV, Total Volume: 1,000, Bolus Dose, Priority: STAT, Start date: 08/19/11 23:10:00, Duration: 1 doses or times, Stop date: 08/20/11 0:09:00 ondansetron 2011-0 No Hughes-Jason 4 mg, M emoria - [place] Route: PO, l 05:10: [place] Drug form: Her braden 00 Pu TABDIS, ONCE, Priority: STAT, Start date: 08/19/11 23:10:00, Stop date: 08/19/11 23:10:00 Lactated 2011-0 No Hughes-Jason 1,000 mL, Memoria Ringers - [place] Rate: l (Bolus) IV 05:10: [place] 1,000 He rmann 1000 mL 00 Pu ml/hr, Infuse over: 1 hr, Route: IV, Total Volume: 1,000, Bolus Dose, Priority: STAT, Start date: 08/19/11 23:10:00, Duration: 1 doses or times, Stop date: 08/20/11 0:09:00 Insulin 2011-0 No Hughes-Jason 7 unit, Mem oria regular 3- [place] 0.07 mL, l 04:15: Route: Vin 00 Pu SUB-Q, Drug form: SOLN, ONCE, Priority: STAT, Start date: 08/19/11 22:15:00, Stop date: 08/19/11 22:15:00 Insulin 2011-0 No Hughes-Jason 7 unit, Mem oria regular 3- [place] 0.07 mL, l 04:15: [place] Route: Ivn 00 Pu SUB-Q, Drug form: SOLN, ONCE, Priority: STAT, Start date: 08/19/11 22:15:00, Stop date: 08/19/11 22:15:00 Insulin 2012-0 No Hughes-Jason 7 unit, Mem oria regular 3-01 [place] 0.07 mL, l 04:15: [place] Route: [place] Pu SUB-Q, Drug form: SOLN, ONCE, Priority: STAT, Start date: 08/19/11 22:15:00, Stop date: 08/19/11 22:15:00 Insulin 2011- No Hughes-Jason 7 unit, Mem oria regular 3- [place] 0.07 mL, l 04:15: [place] Route: Vin Pu SUB-Q, Drug form: SOLN, ONCE, Priority: STAT, Start date: 08/19/11 22:15:00, Stop date: 08/19/11 22:15:00 Insulin No Hughes-Jason 7 unit, Mem oria regular 3- [place] 0.07 mL, l 04:15: [place] Route: Vin Pu SUB-Q, Drug form: SOLN, ONCE, Priority: STAT, Start date: 08/19/11 22:15:00, Stop date: 08/19/11 22:15:00 Geodon 60 No Yury 60 mg, 1 M emoria mg oral 2-29 [place] cap, PO, l capsule 23:24: Rivero BID, 180 [place] 43 cap, Substituti on Allowed, CAP Geodon [...] 2-29 tab, PO, l tablet 23:23: Bedtime, [place] 58 15 tab, Substituti on Allowed, TAB [...] 2-29 tab, PO, l tablet 23:23: Bedtime, [place] 58 15 tab, Substituti on Allowed, TAB [...] PO, l capsule, 23:22: Rivero Daily, 30 [place] extended 24 cap, release Substituti on Allowed Effexor XR 2012-0 Yes Yury 75 mg, 1 Memoria 75 mg oral 2-29 [place] cap, PO, l capsule, 23:22: Rivero Daily, 30 [place] extended 24 cap, release Substituti on Allowed [...] Wong Route: IV, l 21:57: Pooja ONCE, [place] 00 Start date: 08/19/11 15:57:00, Stop date: [...] Wong Route: IV, l 21:57: Pooja ONCE, [place] 00 Start date: 08/19/11 15:57:00, Stop date: [...] 2020-02-20 Completed [facility] Vaccine 00:00:00 [facility] Influenza Virus 2020-02-20 Completed [facility] Vaccine 00:00:00 [facility] TDAP (ADACEL) VACCINE 2019-07-25 Completed Uni versity of 00:00:00 [facility] Meningococcal B, OMV 2019-07-25 Completed Univ ersity of 00:00:00 [facility] Meningococcal 2019-07-25 Completed University of Polysaccharide 00:00:00 [facility] (groups A, C, Y and Branc h W-135) conjugate vaccine (MCV4P) TDAP (ADACEL) VACCINE 2019-07-25 Completed Uni versity of 00:00:00 [facility] Meningococcal B, OMV 2019-07-25 Completed Univ ersity of 00:00:00 [facility] Meningococcal 2019-07-25 Completed University of Polysaccharide 00:00:00 [facility] (groups A, C, Y and [...] hepatitis B vaccine 2018-04-07 Completed Memor ial [place] 00:00:00 hepatitis B vaccine 2018-04-07 Completed Memor ial Vin 00:00:00 hepatitis B vaccine 2018-04-07 Completed Memor ial [place] 00:00:00 hepatitis B vaccine 2018-04-07 Completed Memor ial Vin 00:00:00 influenza virus 2018-03-29 Completed [facility] Vin vaccine, inactivated 00:00:00 influenza virus 2018-03-29 Completed [facility] [place] vaccine, inactivated 00:00:00 influenza virus 2018-03-29 Completed [facility] Vin vaccine, inactivated 00:00:00 influenza virus 2018-03-29 Completed [facility] Vin vaccine, inactivated 00:00:00 influenza virus 2018-03-29 Completed [facility] [place] vaccine, inactivated 00:00:00 hepatitis B vaccine 2017-11-26 Completed Memor ial Vin 00:00:00 hepatitis B vaccine 2017-11-26 Completed Memor ial Vin 00:00:00 hepatitis B vaccine 2017-11-26 Completed Memor ial [place] 00:00:00 hepatitis B vaccine 2017-11-26 Completed Memor ial [place] 00:00:00 hepatitis B vaccine 2017-11-26 Completed [facility] [place] 00:00:00 influenza virus 2017-10-25 Completed [facility] Vin vaccine, inactivated 00:00:00 pneumococcal 2017-10-25 Completed Memorial Her braden 23-valent vaccine 00:00:00 influenza virus 2017-10-25 Completed [facility] Vin vaccine, inactivated 00:00:00 pneumococcal 2017-10-25 Completed [facility] Her braden 23-valent vaccine 00:00:00 influenza virus 2017-10-25 Completed [facility] Vin vaccine, inactivated 00:00:00 pneumococcal 2017-10-25 Completed [facility] Her braden 23-valent vaccine 00:00:00 influenza virus 2017-10-25 Completed [facility] [place] vaccine, inactivated 00:00:00 pneumococcal 2017-10-25 Completed [facility] Her braden 23-valent vaccine 00:00:00 influenza virus 2017-10-25 Completed [facility] [place] vaccine, inactivated 00:00:00 pneumococcal 2017-10-25 Completed Shahid braden 23-valent vaccine 00:00:00 Influenza Virus 2017-06-22 Completed Universit [facility] of Vaccine Quad IM 3+ 00:00:00 [facility] Influenza Virus 2017-06-22 Completed [facility]it y of Vaccine Quad IM 3+ 00:00:00 [facility] Influenza Virus 2016-04-02 Completed [facility]it y of Vaccine Quad IM 3+ 00:00:00 [facility] Influenza Virus 2016-04-02 Completed [facility]it y of Vaccine Quad IM 3+ 00:00:00 [facility] Influenza Virus 2015-10-28 Completed [facility]it y of Vaccine Quad IM 3+ 00:00:00 [facility] Influenza Virus 2015-10-28 Completed Universit y of Vaccine Quad IM 3+ 00:00:00 [facility] Vital Signs Vital Name Observation [...] 16:33:00 171 mm[Hg] Univer sity of pressure [facility] Diastolic blood 2020-06-27 16:33:00 98 mm[Hg] Unive rsity of pressure [facility] Heart rate 2020-06-27 16:33:00 71 /min [facility] Respiratory rate 2020-06-27 16:29:00 19 /min Univ ersity of [facility] Body height 2020-06-27 16:29:00 154.9 cm [facility] Body weight 2020-06-27 16:29:00 77.293 kg [facility] BMI 2020-06-27 16:29:00 32.20 kg/m2 [facility] Oxygen saturation in 2020-06-27 16:29:00 99 /min University of Arterial blood by [email or web address] Pulse oximetry Branch Systolic blood 2020-06-27 16:33:00 171 mm[Hg] Univer sity of pressure [facility] Diastolic blood 2020-06-27 16:33:00 98 mm[Hg] Unive rsity of pressure [facility] Heart rate 2020-06-27 16:33:00 71 /min [facility] Respiratory rate 2020-06-27 16:29:00 19 /min Univ ersity of [facility] Body height 2020-06-27 16:29:00 154.9 cm [facility] Body weight 2020-06-27 16:29:00 77.293 kg [facility] BMI 2020-06-27 16:29:00 32.20 kg/m2 [facility] Oxygen saturation in 2020-06-27 16:29:00 99 /min [facility] Arterial blood by [facility] [place] [facility] Pulse oximetry Branch Height/Length 2021-07-08 11:50:13 154.9 cm Measured Weight Dosing 2021-07-08 11:50:13 85.00 kg Height/Length 2021-07-08 11:47:31 154.9 cm Measured Weight Dosing 2021-07-08 11:47:31 85.00 kg Height/Length 2021-07-08 11:47:20 154.9 cm Measured Weight Dosing 2021-07-08 11:47:20 85.00 kg Systolic blood 2021-07-08 19:43:00 189 mm[Hg] [facility] pressure Diastolic blood 2021-07-08 19:43:00 104 mm[Hg] [facility] pressure Heart rate 2021-07-08 18:56:00 74 /min [facility] Body temperature 2021-07-08 18:56:00 36.39 [facility] Body height 2021-07-08 18:56:00 157.5 cm [facility] Body weight 2021-07-08 18:56:00 72.938 kg [facility] BMI 2021-07-08 18:56:00 29.41 kg/m2 [facility] Oxygen saturation in 2021-07-08 18:56:00 100 /min [facility] Arterial blood by Pulse oximetry Respiratory rate 2021-06-18 16:36:00 11 /min [facility] Systolic (mm Hg) 2021-01-29 20:03:00 Mendoza rial [place] Diastolic (mm Hg) 2021-01-29 20:03:00 Mem orial Vin Systolic (mm Hg) 2021-01-29 19:40:00 Mendoza rial Vin Diastolic (mm Hg) 2021-01-29 19:40:00 Mem orial Vin Systolic (mm Hg) 2021-01-29 18:05:00 Mendoza rial Vin Diastolic (mm Hg) 2021-01-29 18:05:00 Mem orial [place] Respitory Rate 2021-01-29 16:55:00 Memori al Vin Temperature Oral (F) 2021-01-29 16:45:00 97.3 F [facility] [place] Respitory Rate 2021-01-29 16:45:00 Memori al Vin Respitory Rate 2021-01-29 16:30:00 Memori al Vin Temperature Oral (F) 2021-01-29 13:10:00 97.6 F [facility] Vin Systolic (mm Hg) 2021-01-27 05:00:00 Mendoza rial [place] Diastolic (mm Hg) 2021-01-27 05:00:00 Mem orial [place] Systolic (mm Hg) 2021-01-27 04:00:00 Mendoza rial Vin Diastolic (mm Hg) 2021-01-27 04:00:00 Mem orial Vin Systolic (mm Hg) 2021-01-27 03:00:00 Mendoza rial Vin Diastolic (mm Hg) 2021-01-27 03:00:00 Mem orial [place] Respitory Rate 2021-01-26 19:00:00 Memori al [place] Respitory Rate 2021-01-26 18:00:00 Memori al [place] Respitory Rate 2021-01-26 17:00:00 Memori al Vin Temperature Oral (F) 2021-01-22 13:00:00 97.6 F [facility] [place] Height 2021-01-21 18:25:00 149.86 cm [facility] [place] Weight 2021-01-21 18:25:00 [facility] Vin BMI Calculated 2021-01-21 18:25:00 Memori al [place] Height 2021-01-21 17:09:00 157.48 cm [facility] [place] Height 2021-01-21 13:09:00 157.48 cm [facility] Vin Weight 2021-01-21 13:09:00 [facility] [place] BMI Calculated 2021-01-21 13:09:00 Memori al Vin Heart Rate 2021-01-21 12:50:00 [facility] Vin Systolic (mm Hg) 2020-12-24 15:43:00 Mendoza rial Vin Diastolic (mm Hg) 2020-12-24 15:43:00 Mem orial [place] Heart Rate 2020-12-24 15:43:00 [facility] [place] Height 2020-12-24 15:43:00 154.94 cm [facility] Vin Weight 2020-12-24 15:43:00 [facility] [place] BMI Calculated 2020-12-24 15:43:00 Memori al Vin Systolic (mm Hg) 2016-07-30 14:00:00 Mendoza rial [place] Diastolic (mm Hg) 2016-07-30 14:00:00 Mem orial Vin Respitory Rate 2016-07-30 14:00:00 Memori al [place] Heart Rate 2016-07-30 14:00:00 [facility] [place] Temperature Oral (F) 2016-07-30 14:00:00 97.4 F [facility] [place] Systolic (mm Hg) 2016-07-30 10:45:00 Mendoza rial Vin Diastolic (mm Hg) 2016-07-30 10:45:00 Mem orial [place] Heart Rate 2016-07-30 10:45:00 [facility] [place] Temperature Oral (F) 2016-07-30 10:45:00 97.2 F [facility] Vin Respitory Rate 2016-07-30 10:45:00 Memori al Vin Heart Rate 2016-07-30 06:35:00 [facility] Vin Temperature Oral (F) 2016-07-30 06:35:00 97.0 F [facility] [place] Respitory Rate 2016-07-30 06:35:00 Memori al [place] Systolic (mm Hg) 2016-07-30 06:35:00 Mendoza rial [place] Diastolic (mm Hg) 2016-07-30 06:35:00 Mem orial Vin Weight 2016-07-24 02:13:00 [facility] [place] BMI Calculated 2016-07-24 02:13:00 Memori al [place] Height 2016-07-24 02:13:00 160.02 cm [facility] Vin Respitory Rate 2016-06-15 15:00:00 Memori al [place] Systolic (mm Hg) 2016-06-15 15:00:00 Mendoza rial Vin Diastolic (mm Hg) 2016-06-15 15:00:00 Mem orial [place] Respitory Rate 2016-06-15 14:00:00 Memori al [place] Systolic (mm Hg) 2016-06-15 14:00:00 Mendoza rial [place] Diastolic (mm Hg) 2016-06-15 14:00:00 Mem orial Vin Respitory Rate 2016-06-15 13:29:00 Memori al [place] Systolic (mm Hg) 2016-06-15 13:29:00 Mendoza rial Vin Diastolic (mm Hg) 2016-06-15 13:29:00 Mem orial [place] Temperature Oral (F) 2016-06-14 10:56:00 97.1 F [facility] [place] Temperature Oral (F) 2016-06-14 06:55:00 97.1 F [facility] [place] Temperature Oral (F) 2016-06-12 10:00:00 96.8 F [facility] [place] Weight 2016-06-11 04:25:00 [facility] [place] Height 2016-06-11 04:25:00 160.02 cm [facility] Vin BMI Calculated 2016-06-11 04:25:00 Memori al Vin Heart Rate 2016-06-11 02:04:00 [facility] [place] Heart Rate 2016-06-11 00:00:00 [facility] Vin Heart Rate 2016-06-10 20:30:00 [facility] Vin Weight 2016-06-10 16:04:00 [facility] [place] BMI Calculated 2016-06-10 16:04:00 Memori al [place] Height 2016-06-10 16:04:00 160.02 cm [facility] Vin Temperature Oral (F) 2014-06-26 15:12:00 98.0 F [facility] [place] Systolic (mm Hg) 2014-06-26 15:12:00 Mendoza rial Vin Heart Rate 2014-06-26 15:12:00 [facility] Vin Diastolic (mm Hg) 2014-06-26 15:12:00 Mem orial Vin Respitory Rate 2014-06-26 15:12:00 Memori al [place] Systolic (mm Hg) 2014-06-26 13:53:00 Mendoza rial [place] Diastolic (mm Hg) 2014-06-26 13:53:00 Mem orial [place] Respitory Rate 2014-06-26 13:53:00 Memori al Vin Temperature Oral (F) 2014-06-26 13:53:00 98.0 F [facility] [place] Temperature Oral (F) 2014-06-26 12:37:00 98.2 F [facility] [place] Respitory Rate 2014-06-26 12:37:00 Memori al [place] Systolic (mm Hg) 2014-06-26 12:37:00 Mendoza rial [place] Diastolic (mm Hg) 2014-06-26 12:37:00 Mem orial Vin Heart Rate 2014-06-26 09:21:00 [facility] Vin Heart Rate 2014-06-26 06:08:00 [facility] Vin Height 2014-06-26 05:35:00 154.94 cm [facility] Vin Weight 2014-06-26 05:35:00 [facility] [place] BMI Calculated 2014-06-26 05:35:00 Memori al Vin Respitory Rate 2013-04-15 06:10:00 Memori al Vin Diastolic (mm Hg) 2013-04-15 06:10:00 Mem orial [place] Heart Rate 2013-04-15 06:10:00 [facility] Vin Systolic (mm Hg) 2013-04-15 06:10:00 Mendoza rial [place] Temperature Oral (F) 2013-04-15 06:10:00 98.7 F [facility] [place] Respitory Rate 2013-04-15 05:37:00 Memori al [place] Diastolic (mm Hg) 2013-04-15 05:37:00 Mem orial [place] Systolic (mm Hg) 2013-04-15 05:37:00 Mendoza rial [place] Temperature Oral (F) 2013-04-15 05:37:00 98.2 F [facility] Vin Heart Rate 2013-04-15 05:37:00 [facility] [place] Height 2013-04-15 02:06:00 160.02 cm [facility] [place] Weight 2013-04-15 02:06:00 [facility] Vin Temperature Oral (F) 2013-04-15 02:06:00 98.6 F [facility] [place] Respitory Rate 2013-04-15 02:06:00 Memori al Vin Heart Rate 2013-04-15 02:06:00 [facility] [place] Diastolic (mm Hg) 2013-04-15 02:06:00 Mem orial [place] Systolic (mm Hg) 2013-04-15 02:06:00 Mendoza rial Vin Weight 2012-03-14 21:33:00 [facility] Vin Systolic (mm Hg) 2011-12-01 00:33:00 Mendoza rial Vin Respitory Rate 2011-12-01 00:33:00 Memori al Vin Heart Rate 2011-12-01 00:33:00 [facility] Vin Diastolic (mm Hg) 2011-12-01 00:33:00 Mem orial [place] Temperature Oral (F) 2011-12-01 00:33:00 99.6 F [facility] Vin Diastolic (mm Hg) 2011-11-30 21:00:00 Mem orial [place] Heart Rate 2011-11-30 21:00:00 [facility] [place] Respitory Rate 2011-11-30 21:00:00 Memori al [place] Systolic (mm Hg) 2011-11-30 21:00:00 Mendoza rial Vin Temperature Oral (F) 2011-11-30 21:00:00 99.8 F [facility] Vin Respitory Rate 2011-11-30 16:30:00 Memori al [place] Systolic (mm Hg) 2011-11-30 16:30:00 Mendoza rial Vin Diastolic (mm Hg) 2011-11-30 16:30:00 Mem orial [place] Heart Rate 2011-11-30 16:30:00 [facility] Vin Temperature Oral (F) 2011-11-30 16:30:00 99.8 F [facility] [place] Weight 2011-11-29 11:40:00 [facility] Height 2011-11-29 11:40:00 157.48 cm [facility] Vin Weight 2011-11-28 17:16:00 [facility] Weight 2011-09-18 13:30:00 [facility] [place] Height 2011-09-18 13:30:00 154.94 cm [facility] Heart Rate 2011-09-09 13:31:00 [facility] [place] Systolic (mm Hg) 2011-09-09 13:02:00 Mendoza rial Vin Diastolic (mm Hg) 2011-09-09 13:02:00 Mem orial Vin Respitory Rate 2011-09-09 13:02:00 Memori al [place] Temperature Oral (F) 2011-09-09 13:02:00 97.5 F [facility] Vin Diastolic (mm Hg) 2011-09-09 08:00:00 Mem orial [place] Heart Rate 2011-09-09 08:00:00 [facility] Vin Temperature Oral (F) 2011-09-09 08:00:00 98.6 F [facility] Vin Respitory Rate 2011-09-09 08:00:00 Memori al [place] Systolic (mm Hg) 2011-09-09 08:00:00 Mendoza rial Vin Respitory Rate 2011-09-09 04:55:00 Memori al Vin Diastolic (mm Hg) 2011-09-09 04:55:00 Mem orial [place] Systolic (mm Hg) 2011-09-09 04:55:00 Mendoza rial [place] Heart Rate 2011-09-09 04:55:00 [facility] [place] Temperature Oral (F) 2011-09-09 00:55:00 98.7 F [facility] Weight 2011-09-01 19:59:00 [facility] [place] Height 2011-09-01 19:59:00 154.94 cm [facility] [place] Height 2011-09-01 07:01:00 154.94 cm [facility] [place] Weight 2011-09-01 07:01:00 [facility] Respitory Rate 2011-08-23 18:00:00 Memori al Vin Heart Rate 2011-08-23 18:00:00 [facility] [place] Systolic (mm Hg) 2011-08-23 18:00:00 Mendoza rial [place] Diastolic (mm Hg) 2011-08-23 18:00:00 Mem orial [place] Temperature Oral (F) 2011-08-23 18:00:00 97.7 F [facility] Heart Rate 2011-08-23 14:24:00 [facility] [place] Temperature Oral (F) 2011-08-23 14:24:00 98.2 F [facility] [place] Diastolic (mm Hg) 2011-08-23 14:24:00 Mem orial [place] Systolic (mm Hg) 2011-08-23 14:24:00 Mendoza rial Vin Respitory Rate 2011-08-23 14:24:00 Memori al [place] Systolic (mm Hg) 2011-08-23 11:15:00 Mendoza rial [place] Diastolic (mm Hg) 2011-08-23 11:15:00 Mem orial Vin Temperature Oral (F) 2011-08-23 11:00:00 98.3 F [facility] [place] Heart Rate 2011-08-23 11:00:00 [facility] [place] Respitory Rate 2011-08-22 22:00:00 Memori al Vin Height 2011-08-20 09:12:00 154.94 cm [facility] Weight 2011-08-20 09:12:00 [facility] [place] Height 2011-08-19 20:28:00 154.94 cm [facility] Weight 2011-08-19 20:28:00 [facility] Procedures Procedure Date / Time Performing Clinician Source Performed POC GLUCOSE 2021-06-18 17:00:00 Aurelio Schumacher [facility] HEPATITIS B SURFACE 2021-06-18 14:07:00 Bill Cooper [facility] ANTIGEN VANCOMYCIN LEVEL, RANDOM 2021-06-18 13:44:00 Char Viramontes [facility] HC COMPLETE BLD COUNT 2021-06-18 13:44:00 Aurelio Schumacher [facility] W/AUTO DIFF BASIC METABOLIC PANEL 2021-06-18 11:27:00 Aurelio Schumacher [facility] ESTIMATED GFR 2021-06-18 11:27:00 Endy Aurelio [facility] POC GLUCOSE 2021-06-18 08:07:00 Faiza Schumacherpallavi [facility] HEMODIALYSIS 2021-06-18 06:16:53 Kenneth Bill [facility] POC GLUCOSE 2021-06-18 01:26:00 Faiza Schumacherpallavi [facility] POC GLUCOSE 2021-06-17 21:58:00 Faiza Schumacherpallavi [facility] HEMODIALYSIS 2021-06-17 18:25:45 Kenneth Bill [facility] POC GLUCOSE 2021-06-17 17:36:00 Faiza Schumacherpallavi [facility] POC GLUCOSE 2021-06-17 13:51:00 Faiza Schumacherpallavi [facility] BASIC METABOLIC PANEL 2021-06-17 11:16:00 [facility] HC COMPLETE BLD COUNT 2021-06-17 11:16:00 [facility] W/AUTO DIFF ESTIMATED GFR 2021-06-17 11:16:00 [facility] POC GLUCOSE 2021-06-17 02:50:00 [facility] CONSULT TO OSTOMY CARE 2021-06-17 00:31:48 [facility] NURSE HC COMPLETE BLD COUNT 2021-06-16 23:31:00 [facility] W/AUTO DIFF BASIC METABOLIC PANEL 2021-06-16 23:31:00 [facility] ESTIMATED GFR 2021-06-16 23:31:00 [facility] POC GLUCOSE 2021-06-16 23:19:00 [facility] OR FL < 1 HOUR 2021-06-16 22:49:00 Mando Diaz [facility] JoeRuma ANAEROBIC CULTURE 2021-06-16 22:36:[address] [facility] JoeRuma FUNGUS CULTURE 2021-06-16 22:36:00 Mando Diaz [facility] JoeHsviraj AEROBIC CULTURE 2021-06-16 22:36:00 [facility]AIN 2021-06-16 22:36:00 [facility] DC AN ELECTIVE 2021-06-16 21:30:[address] [facility] SUPRAGLOTTIC AIRWAY AORTOGRAPHY, POSSIBLE 2021-06-16 21:17:[address] [facility] ANGIOPLASTY [facility] POC , URINE 2021-06-16 20:46:00 [facility] POTASSIUM LEVEL 2021-06-16 17:28:00 Isabell Dickerson [facility] Larry Romero POC GLUCOSE 2021-06-16 11:39:00 [facility] BASIC METABOLIC PANEL 2021-06-16 10:08:00 [facility] HC COMPLETE BLD COUNT 2021-06-16 10:08:00 [facility] W/AUTO DIFF PROTHROMBIN TIME WITH INR 2021-06-16 10:08:00 [facility] PARTIAL THROMBOPLASTIN 2021-06-16 10:08:00 [facility] TIME (PTT) TYPE AND SCREEN 2021-06-16 10:08:00 [facility] ESTIMATED GFR 2021-06-16 10:08:00 [facility] POC GLUCOSE 2021-06-16 01:59:00 [facility] POC GLUCOSE 2021-06-15 22:58:00 [facility] COVID-19 QUALITATIVE 2021-06-15 19:29:00 [facility]-PCR POC GLUCOSE 2021-06-15 17:42:00 [facility] HEMODIALYSIS 2021-06-15 16:17:[address] [facility] POC GLUCOSE 2021-06-15 15:41:00 [facility] POC GLUCOSE 2021-06-15 13:44:00 [facility] POC GLUCOSE 2021-06-15 13:00:00 [facility] ECG 12-LEAD 2021-06-15 12:48:21 Leni Barker Ho spital HC COMPLETE BLD COUNT 2021-06-15 11:42:00 [facility] W/AUTO DIFF BASIC METABOLIC PANEL 2021-06-15 11:42:00 [facility] ESTIMATED GFR 2021-06-15 11:42:00 [facility] POC GLUCOSE 2021-06-15 01:31:00 [facility] US DUPLEX ARTERIAL LOWER 2021-06-14 21:55:33 [facility] EXTREMITY RIGHT POC GLUCOSE 2021-06-14 21:51:00 [facility] POC GLUCOSE 2021-06-14 17:36:00 [facility] POC GLUCOSE 2021-06-14 13:30:00 [facility] POC GLUCOSE 2021-06-14 13:29:00 [facility] HC COMPLETE BLD COUNT 2021-06-14 10:13:00 [facility] W/AUTO DIFF BASIC METABOLIC PANEL 2021-06-14 10:13:00 [facility] ESTIMATED GFR 2021-06-14 10:13:00 [facility] POC GLUCOSE 2021-06-14 02:45:00 [facility] POC GLUCOSE 2021-06-13 21:47:00 [facility] POC GLUCOSE 2021-06-13 20:46:00 [facility] CBC WITH PLATELET AND 2021-06-13 16:10:00 Delfino Akbar [facility] DIFFERENTIAL COMPREHENSIVE METABOLIC 2021-06-13 16:10:00 [facility] PANEL ESTIMATED GFR 2021-06-13 16:10:00 [facility] 2021-06-13 15:26:35 [facility] POC GLUCOSE 2021-06-13 14:30:00 [facility] VANCOMYCIN LEVEL, RANDOM 2021-06-13 10:59:00 [facility] POC GLUCOSE 2021-06-13 10:40:00 [facility] POC GLUCOSE 2021-06-13 02:28:00 [facility] POC GLUCOSE 2021-06-13 00:16:00 [facility] POC GLUCOSE 2021-06-12 23:31:00 [facility] POC GLUCOSE 2021-06-12 23:14:00 [facility] POC GLUCOSE 2021-06-12 18:19:00 [facility] POC GLUCOSE 2021-06-12 14:37:00 [facility] POC GLUCOSE 2021-06-12 14:01:00 [facility] POC GLUCOSE 2021-06-12 03:03:00 Holden Nagel Ho spital Ramí[facility] CT HEAD WO CONTRAST 2021-06-12 00:53:00 Holden Nagel [facility] Ramírez POC GLUCOSE 2021-06-11 18:08:00 Holden Nagel Ho spital Ramírez POC GLUCOSE 2021-06-11 13:39:00 Holden Nagel Ho spital Ramírez HEMODIALYSIS 2021-06-11 12:38:38 [facility] POC GLUCOSE 2021-06-11 02:01:00 Holden Nagel Ho spital Ramírez POC GLUCOSE 2021-06-10 22:15:00 Holden Nagel Ho spital Ramírez POC GLUCOSE 2021-06-10 17:39:00 Holden Nagel Ho spital Ramírez POC GLUCOSE 2021-06-10 16:05:00 Holden Nagel spital Ramírez TISSUE CULTURE 2021-06-10 15:08:00 Pati, Juwan Ferrara spital GRAM STAIN 2021-06-10 15:08:00 Pati, Juwan Whyte spital ANAEROBIC CULTURE 2021-06-10 15:04:00 Pati, [facility] FUNGUS CULTURE 2021-06-10 15:04:00 Pati, Juwan Ferrara spital AEROBIC CULTURE 2021-06-10 15:04:00 Pati, Juwan Whyte spital AFB CULTURE 2021-06-10 15:04:00 Pati, Juwan Ferrara spital GRAM STAIN 2021-06-10 15:04:00 Pati, Juwan Whyte spital AF[employer] STAIN 2021-06-10 15:04:00 Pati, Juwan Ferrara spital DC AN ELECTIVE 2021-06-10 14:26:00 Sofi Roach spital SUPRAGLOTTIC AIRWAY Marquita INCISION AND DRAINAGE, 2021-06-10 14:26:00 Pati, [facility] LOWER EXTREMITY HC COMPLETE BLD COUNT 2021-06-10 10:20:00 , [facility] W/AUTO DIFF BASIC METABOLIC PANEL 2021-06-10 10:20:00 , [facility] PROTHROMBIN TIME WITH INR 2021-06-10 10:20:00 , [facility] PARTIAL THROMBOPLASTIN 2021-06-10 10:20:00 [facility] TIME (PTT) TYPE AND SCREEN 2021-06-10 10:20:00 Holden Nagel spital Ramírez ESTIMATED GFR 2021-06-10 10:20:00 Juwan You spital POC GLUCOSE 2021-06-10 03:11:00 Holden Nagel spital Ramírez POC GLUCOSE 2021-06-10 01:30:00 Holden Nagel spital Ramírez POC GLUCOSE 2021-06-09 22:22:00 Holden Nagel spital Ramírez POC GLUCOSE 2021-06-09 13:55:00 Holden Nagel spital Ramírez HEMODIALYSIS 2021-06-09 13:20:01 [facility] VANCOMYCIN LEVEL, RANDOM 2021-06-09 11:46:00 [facility] POC GLUCOSE 2021-06-09 02:06:00 Holden Nagel spital Ramírez POC GLUCOSE 2021-06-08 22:23:00 Holden Nagel spital Ramírez POC GLUCOSE 2021-06-08 17:53:00 Holden Nagel spital Ramírez HC COMPLETE BLD COUNT 2021-06-08 16:06:00 [facility] W/AUTO DIFF POC GLUCOSE 2021-06-08 13:56:00 Holden Nagel spital Ramírez URINE CULTURE 2021-06-08 03:56:00 Holden Nagel spital Ramírez URINALYSIS SCREEN AND 2021-06-08 03:32:00 [facility] MICROSCOPY, WITH REFLEX TO CULTURE POC GLUCOSE 2021-06-08 01:15:00 Holden Nagel spital Ramírez POC GLUCOSE 2021-06-07 22:07:00 Holden Nagel spital Ramírez POC GLUCOSE 2021-06-07 18:01:00 Holden Nagel spital Ramírez BASIC METABOLIC PANEL 2021-06-07 14:15:00 [facility] ESTIMATED GFR 2021-06-07 14:15:00 Holden Nagel spital Ramírez POC GLUCOSE 2021-06-07 13:56:00 Holden Nagel spital Ramírez POC GLUCOSE 2021-06-07 02:54:00 Holden Nagel spital Ramírez CT LOWER EXTREMITY W 2021-06-07 01:22:59 [facility] CONTRAST RIGHT POC GLUCOSE 2021-06-06 23:50:00 Holden Nagel spital Ramírez POC GLUCOSE 2021-06-06 17:31:00 Holden Nagel spital Ramírez HEMODIALYSIS 2021-06-06 15:05:[address] [facility] POC GLUCOSE 2021-06-06 14:03:00 Holden Nagel spital Ramírez HC COMPLETE BLD COUNT 2021-06-06 10:31:00 [facility] W/AUTO DIFF BASIC METABOLIC PANEL 2021-06-06 10:31:00 [facility] ESTIMATED GFR 2021-06-06 10:31:00 Holden Nagel spital Ramírez POC GLUCOSE 2021-06-06 10:14:00 Holden Nagel spital Ramírez POC GLUCOSE 2021-06-06 06:26:00 Holden Nagel spital Ramírez POC GLUCOSE 2021-06-06 02:41:00 Holden Nagel spital Ramírez POC GLUCOSE 2021-06-05 19:51:00 Holden Nagel spital Ramírez BASIC METABOLIC PANEL 2021-06-05 18:06:00 [facility] HC COMPLETE BLD COUNT 2021-06-05 18:06:00 [facility] W/AUTO DIFF ESTIMATED GFR 2021-06-05 18:06:00 Holden Nagel spital Ramírez POC GLUCOSE 2021-06-05 17:48:00 Holden Nageltal Ramírez ANAEROBIC CULTURE 2021-06-05 17:10:00 Pati [facility] ANAEROBIC CULTURE 2021-06-05 16:59:00 Pati [facility] FUNGUS CULTURE 2021-06-05 16:59:00 Juwan You spital AEROBIC CULTURE 2021-06-05 16:59:00 Juwan You spital AFB CULTURE 2021-06-05 16:59:00 Juwan Youtal FUNGUS SMEAR 2021-06-05 16:59:00 Juwan You spital AF[employer] STAIN 2021-06-05 16:59:00 Juwan You spital DC AN ELECTIVE 2021-06-05 16:52:[address] [facility] SUPRAGLOTTIC AIRWAY TISSUE CULTURE 2021-06-05 16:50:00 Juwan You GRAM STAIN 2021-06-05 16:50:00 Juwan You DEBRIDEMENT, LOWER 2021-06-05 16:16:[address] [facility] EXTREMITY POC GLUCOSE 2021-06-05 13:32:00 Holden Nagel marilyn Ramírez TROPONIN T 2021-06-05 10:58:00 [facility] ospital ABO AND RH CONFIRMATION BY 2021-06-05 10:54:00 [facility] PROTOCOL Vipin BASIC METABOLIC PANEL 2021-06-05 10:53:00 [facility] HC COMPLETE BLD COUNT 2021-06-05 10:53:00 [facility] W/AUTO DIFF ESTIMATED GFR 2021-06-05 10:53:00 Sivan Stewart [facility] PROTHROMBIN TIME WITH INR 2021-06-05 10:52:00 [facility] PARTIAL THROMBOPLASTIN 2021-06-05 10:52:00 [facility] TIME (PTT) HCG QUALITATIVE, SERUM 2021-06-05 10:52:00 Myron Fernandes [facility] SCREEN POC GLUCOSE 2021-06-05 09:40:00 [facility] BLOOD CULTURE, AEROBIC & 2021-06-05 08:27:00 Rachel Brasher [facility] ANAEROBIC Vipin POC GLUCOSE 2021-06-05 07:42:00 Rachel Brasher spital Vipin POC GLUCOSE 2021-06-05 06:57:00 Rachel Brasher spital Vipin POC GLUCOSE 2021-06-05 06:10:00 Holden Nagel Ramírez BLOOD CULTURE, AEROBIC & 2021-06-05 04:31:00 Rachel Brasher [facility] ANAEROBIC Vipin POC GLUCOSE 2021-06-05 04:04:00 Rachel Brasher Ho spital Vipin POC GLUCOSE 2021-06-05 03:51:00 Rachel Brasher Ho spital Vipin TYPE AND SCREEN 2021-06-05 03:40:00 Rachel Brasher Ho spital Vipin POC GLUCOSE 2021-06-05 03:05:00 Rachel Brasher Ho spital Vipin POC GLUCOSE 2021-06-05 02:23:00 Rachel Brasher Ho spital Vipin COVID-19 QUALITATIVE 2021-06-05 02:08:00 SamantaSivan [facility] RT-PCR HC COMPLETE BLD COUNT 2021-06-05 01:24:00 Sivan Stewart [facility] W/AUTO DIFF PROTHROMBIN TIME WITH INR 2021-06-05 01:24:[address] [facility] PARTIAL THROMBOPLASTIN 2021-06-05 01:24:[address] [facility] TIME (PTT) COMPREHENSIVE METABOLIC 2021-06-05 01:24:00 [facility] PANEL CREATINE KINASE, TOTAL 2021-06-05 01:24:00 SamantaSivan [facility] B NATRIURETIC PEPTIDE 2021-06-05 01:24:00 Sivan Stewart [facility] TROPONIN T 2021-06-05 01:24:00 Char Viramontes [facility] ospital ESTIMATED GFR 2021-06-05 01:24:[address] [facility] ECG ED PRELIMINARY 2021-06-05 00:31:28 Sivan Stewart [facility] INTERPRETATION ECG 12-LEAD 2021-06-05 00:19:17 Rachel Brasher Ho spital Vipin POC GLUCOSE 2021-05-25 18:04:00 Mrailu Koch [facility] POC GLUCOSE 2021-05-25 14:00:00 A[facility], [facility] CBC HEMO[facility] 2021-05-25 10:12:00 Awe, [facility] BASIC METABOLIC PANEL 2021-05-25 10:12:00 Awe, [facility] ESTIMATED GFR 2021-05-25 10:12:00 Awe, [facility] POC GLUCOSE 2021-05-25 02:49:00 Awe, [facility] POC GLUCOSE 2021-05-24 23:33:00 Awe, [facility] POC GLUCOSE 2021-05-24 17:56:00 Awe, [facility] POC GLUCOSE 2021-05-24 13:59:00 Awe, [facility] CBC HEMOGRAM 2021-05-24 10:12:00 Awe, [facility] BASIC METABOLIC PANEL 2021-05-24 10:12:00 Awe, [facility] ESTIMATED GFR 2021-05-24 10:12:00 Awe, [facility] POC GLUCOSE 2021-05-24 09:59:00 Awe, [facility] POC GLUCOSE 2021-05-24 02:26:00 Awe, [facility] POC GLUCOSE 2021-05-24 00:03:00 Awe, [facility] TRANSFUSE RED BLOOD CELLS 2021-05-23 22:30:00 [facility] TRANSFUSE RED BLOOD CELLS 2021-05-23 21:30:00 [facility] POC GLUCOSE 2021-05-23 19:03:00 Awe, [facility] TYPE AND SCREEN 2021-05-23 14:38:00 [facility] HC COMPLETE BLD COUNT 2021-05-23 14:38:00 [facility] W/AUTO DIFF PREPARE RBC 2021-05-23 14:38:00 Elizabeth [facility]ont[facility]rad[facility] ospital PREPARE PLATELET PHERESIS 2021-05-23 14:38:00 Raysa [facility] cent[facility] luisa [facility] POC GLUCOSE 2021-05-23 14:35:00 Awe, [facility] 2021-05-23 13:42:[address] [facility] CBC HEMOGRAM 2021-05-23 12:31:00 Awe, Marilu Arvin [facility] BASIC METABOLIC PANEL 2021-05-23 12:31:00 Awe, [facility] ESTIMATED GFR 2021-05-23 12:31:00 [facility], [facility] POC [facility]SE 2021-05-23 11:22:00 [facility], [facility] POC GLUCOSE 2021-05-23 03:30:00 Awe, [facility] POC GLUCOSE 2021-05-22 23:20:00 Awe, Marilu Arvin [facility] POC GLUCOSE 2021-05-22 17:20:00 Awe, [facility] POC GLUCOSE 2021-05-22 13:27:00 Awe, Marilu Arvin [facility] BASIC METABOLIC PANEL 2021-05-22 12:31:00 Nikki Haynes [facility] Rahel MAGNESIUM LEVEL 2021-05-22 12:31:00 Nikki Haynes ospital Rahel CBC HEMOGRAM 2021-05-22 12:31:00 Nikki Haynes ospital Rahel ESTIMATED GFR 2021-05-22 12:31:00 Nikki Haynes ospital Rahel POC GLUCOSE 2021-05-22 10:54:00 Awe, Marilu Arvin [facility] POC GLUCOSE 2021-05-22 07:28:00 Awe, Marilu [facility]vin [facility] POC [facility]SE 2021-05-22 01:11:00 Awe, [facility] HEPATITIS B SURFACE 2021-05-21 21:08:00 [facility] ANTIBODY HEMODIALYSIS 2021-05-21 20:57:40 [facility] POC GLUCOSE 2021-05-21 17:57:00 Awe, [facility] POC GLUCOSE 2021-05-21 13:55:00 Awe, [facility] POC GLUCOSE 2021-05-21 10:41:00 Tom Barber ZZCOVID-19 ANTI-SPIKE IGG 2021-05-21 07:43:00 Clyde Olmstead [facility] ANTIBODY TITER Esa BASIC METABOLIC PANEL 2021-05-21 07:43:00 [facility] Rahel MAGNESIUM LEVEL 2021-05-21 07:43:00 [facility] ospigabe Mcginnis CBC HEMOGRAM 2021-05-21 07:43:00 [facility] Rahel ZZCOVID-19 SEROLOGY 2021-05-21 07:43:00 Clyde Olmstead [facility] PATIENT SURVEILLANCE Esa ESTIMATED GFR 2021-05-21 07:43:00 Andre Sofia LACTIC ACID LEVEL 2021-05-21 07:43:[address] [facility] POC GLUCOSE 2021-05-21 06:35:00 Tom Barber COMPLETE BLD COUNT 2021-05-21 02:49:00 [facility] W/AUTO DIFF BASIC METABOLIC PANEL 2021-05-21 02:49:00 [facility] LACTIC ACID LEVEL 2021-05-21 02:49:00 [facility] OSMOLALITY, SERUM 2021-05-21 02:49:00 [facility] BETA HYDROXYBUTYRATE 2021-05-21 02:49:00 [facility] PROCALCITONIN 2021-05-21 02:49:00 [facility] ESTIMATED GFR 2021-05-21 02:49:00 [facility] POC GLUCOSE 2021-05-21 02:34:00 Tom Barber Ho spital HC COMPLETE BLD COUNT 2021-05-21 00:28:00 [facility] W/AUTO DIFF POC GLUCOSE 2021-05-20 23:57:00 Tom Barber Ho spital BASIC METABOLIC PANEL 2021-05-20 23:20:00 Angel [facility] [place] LACTIC ACID LEVEL 2021-05-20 23:20:00 [facility] [place] ESTIMATED GFR 2021-05-20 23:20:00 Andre Sofia Ho [...] spital POC GLUCOSE 2021-05-20 17:46:00 Tom Barber Ho spital TRANSFUSE RED BLOOD CELLS 2021-05-20 17:21:00 Andre Sofia [facility] [place] TRANSFUSE PLATELET 2021-05-20 15:52:00 [facility] PHERESIS BASIC METABOLIC PANEL 2021-05-20 15:25:00 Angel Luis [facility] [place] ESTIMATED GFR 2021-05-20 15:25:00 Andre Sofia spital [place] POC GLUCOSE 2021-05-20 14:48:00 Tom Barber spital HEMODIALYSIS 2021-05-20 11:31:20 [facility] POC GLUCOSE 2021-05-20 10:44:00 Tom Barber spital HEPATITIS B SURFACE 2021-05-20 08:49:00 [facility]TIGEN HEPATITIS B SURFACE AB, 2021-05-20 08:49:00 [facility] QUANTITATIVE HC COMPLETE BLD COUNT 2021-05-20 08:25:00 [facility] W/AUTO DIFF BASIC METABOLIC PANEL 2021-05-20 08:25:00 [facility] MAGNESIUM LEVEL 2021-05-20 08:25:00 [facility] ospital PHOSPHORUS LEVEL 2021-05-20 08:25:00 [facility] PROTHROMBIN TIME WITH INR 2021-05-20 08:25:00 [facility] 2021-05-20 08:25:00 Juwan You spital HEMOGLOBIN A1C 2021-05-20 08:25:00 Nikki Haynes ospital Rahel POC GLUCOSE 2021-05-20 06:34:00 Tom Barber spital ARTERIAL BLOOD GAS 2021-05-20 04:36:00 [facility] ECG 12-LEAD 2021-05-20 03:42:28 Graham [facility] spital PROTHROMBIN TIME WITH INR 2021-05-20 02:54:00 [facility] HC COMPLETE BLD COUNT 2021-05-20 02:54:00 Leodan Stevenson [facility] W/AUTO DIFF BASIC METABOLIC PANEL 2021-05-20 02:54:00 Graham [facility] LACTIC ACID LEVEL 2021-05-20 02:54:00 Graham [facility] VENOUS BLOOD GAS 2021-05-20 02:54:00 Leodan Stevenson ospital ESTIMATED GFR 2021-05-20 02:54:00 Leodan Stevenson spital POC GLUCOSE 2021-05-20 02:54:00 Tom Barber spital XR CHEST 1 VW PORTABLE 2021-05-20 02:51:13 Leodan Stevenson [facility] OR [place] < 1 HOUR 2021-05-20 01:30:15 Juwan You spital TRANSFUSE RED BLOOD CELLS 2021-05-20 00:59:00 Juwan You [facility] DC AN ELECTIVE 2021-05-20 00:53:01 Sukhjinder Medina spital SUPRAGLOTTIC AIRWAY Kendall INCISION AND DRAINAGE, 2021-05-20 00:45:00 Pati [facility] HEMATOMA HC COMPLETE BLD COUNT 2021-05-19 22:13:00 [facility] W/AUTO DIFF BASIC METABOLIC PANEL 2021-05-19 22:13:00 [facility] PROTHROMBIN TIME WITH INR 2021-05-19 22:13:00 [facility] PARTIAL THROMBOPLASTIN 2021-05-19 22:13:00 [facility] TIME (PTT) MAGNESIUM LEVEL 2021-05-19 22:13:00 [facility] Isabell Taylor ospital ESTIMATED GFR 2021-05-19 22:13:00 Juwan You spital POC GLUCOSE 2021-05-19 22:00:00 Errol Luther [facility] SURGICAL PATHOLOGY REQUEST 2021-05-19 21:47:00 Errol Luther [facility] POC GLUCOSE 2021-05-19 21:17:00 Juwan You spital ACTIVATED CLOTTING TIME 2021-05-19 19:12:00 Tom Barber [facility] DC AN ELECTIVE 2021-05-19 18:11:04 Sukhjinder Medina spital SUPRAGLOTTIC AIRWAY [place] LOWER EXTREMITY 2021-05-19 17:59:00 Juwan You spital ANGIOGRAM,POSSIBLE ANGIOPLASTY,POSSIBLE STENT XR CHEST 1 VW PORTABLE 2021-05-19 15:47:37 Juwan You [facility] ESTIMATED GFR 2021-05-19 14:34:00 Juwan You spital POC PANEL 2021-05-19 14:34:00 Juwan You spital TYPE AND SCREEN 2021-05-19 14:05:00 Isabell Dickerson marilyn Romero PREPARE RBC 2021-05-19 14:05:00 [facility] ospital PREPARE FRESH FROZEN 2021-05-19 14:05:00 [facility] PLASMA PREPARE PLATELET PHERESIS 2021-05-19 14:05:00 [facility] BASIC METABOLIC PANEL 2021-05-19 14:00:00 [facility] Romero PROTHROMBIN TIME WITH INR 2021-05-19 14:00:00 [facility] Romero HC COMPLETE BLD COUNT 2021-05-19 14:00:00 [facility] W/AUTO DIFF Larry Romero ABO AND RH CONFIRMATION BY 2021-05-19 14:00:00 [facility] PROT[facility]OL ESTIMATED GFR 2021-05-19 14:00:00 [facility] COVID-19 QUALITATIVE 2021-05-19 12:40:00 Juwan You [facility] RT-PCR MEDICAL RELEASE/CLEARANCE 2021-05-13 06:01:00 Doctor Unassigned, [facility] FORMS [facility] US DUPLEX ARTERIAL LOWER 2021-05-12 15:21:31 Juwan You [facility] EXTREMITY BILATERAL Emergency department visit 2013-04-15 05:00:00 [...] procedure) Therapeutic, prophylactic, 2013-04-15 05:00:00 [facility] or diagnostic injection (specify substance or drug); each additional sequential intravenous push of a new substance/drug (List separately in addition to code for primary procedure) Therapeutic, prophylactic, 2013-04-15 05:00:00 [facility] [place] or diagnostic injection (specify substance or drug); intravenous push, single or initial substance/drug [facility] (esophagogastroduodenoscop y) gastric outlet reduction section [facility] Jake n Tubal ligation [facility] 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 Plan of Care Planned Activity Planned Date Details Comments Source Future Scheduled 2022-11-12 HEPATITIS B VACCINES [facility] Test 20:50:47 (1 of 3 - 3-dose series) [code = HEPATITIS B VACCINES (1 of 3 - 3-dose series)] Future Scheduled 2022-11-12 COVID-19 VACCINE (#1) [facility] Test 20:50:47 [code = COVID-19 VACCINE (#1)] Future Scheduled 2022-11-12 Pneumococcal Vaccine: [facility] Test 20:50:47 Pediatrics (0 to 5 Years) and At-Risk Patients (6 to 64 Years) (1 - PCV) [code = Pneumococcal Vaccine: Pediatrics (0 to 5 Years) and At-Risk Patients (6 to 64 Years) (1 - PCV)] Future Scheduled 2022-11-12 Hepatitis C screening [facility] Test 20:50:47 (procedure) [code = 106305203] Future Scheduled 2022-11-12 [facility] Test 20:50:47 malignant neoplasm of cervix (procedure) [code = 401348851] Future Scheduled 2022-11-[address] [facility] Test 20:50:47 SCREENING [code = BREAST CANCER SCREENING] Future Scheduled 2022-11-12 INFLUENZA VACCINE [facility] Test 20:50:47 [code = INFLUENZA VACCINE] Future Scheduled 2022-11-12 HEPATITIS B VACCINES [facility] Test 20:50:47 (1 of 3 - 3-dose series) [code = HEPATITIS B VACCINES (1 of 3 - 3-dose series)] Future Scheduled 2022-11-12 COVID-19 VACCINE (#1) [facility] Test 20:50:47 [code = COVID-19 VACCINE (#1)] Future Scheduled 2022-11-12 Pneumococcal Vaccine: [facility] Test 20:50:47 Pediatrics (0 to 5 Years) and At-Risk Patients (6 to 64 Years) (1 - PCV) [code = Pneumococcal Vaccine: Pediatrics (0 to 5 Years) and At-Risk Patients (6 to 64 Years) (1 - PCV)] Future Scheduled 2022-11-12 Hepatitis C screening [facility] Test 20:50:47 (procedure) [code = [id number]] Future Scheduled 2022-11-12 Screening for [facility] Test 20:50:47 malignant neoplasm of cervix (procedure) [code = [id number]] Future Scheduled 2022-11-12 BREAST CANCER [facility] Test 20:50:47 SCREENING [code = BREAST CANCER SCREENING] Future Scheduled 2022-11-12 INFLUENZA VACCINE Method [facility] Test 20:50:47 [code = INFLUENZA VACCINE] Future Scheduled 2022-10-23 HEPATITIS B VACCINES [facility] Test 05:16:19 (1 of 3 - 3-dose series) [code = HEPATITIS B VACCINES (1 of 3 - 3-dose series)] Future Scheduled 2022-10-23 COVID-19 VACCINE (#1) [facility] Test 05:16:19 [code = COVID-19 VACCINE (#1)] Future Scheduled 2022-10-23 Pneumococcal Vaccine: [facility] Test 05:16:19 Pediatrics (0 to 5 Years) and At-Risk Patients (6 to 64 Years) (1 - PCV) [code = Pneumococcal Vaccine: Pediatrics (0 to 5 Years) and At-Risk Patients (6 to 64 Years) (1 - PCV)] Future Scheduled 2022-10-23 Hepatitis C screening [facility] Test 05:16:19 (procedure) [code = [id number]] Future Scheduled 2022-10-23 Screening for [facility] Test 05:16:19 malignant neoplasm of cervix (procedure) [code = 213339428] Future Scheduled 2022-10-[address] [facility] Test 05:16:19 SCREENING [code = BREAST CANCER SCREENING] Future Scheduled 2022-10-23 INFLUENZA VACCINE Method [facility] Test 05:16:19 [code = INFLUENZA VACCINE] Future Scheduled 2022-06-11 HEPATITIS B VACCINES [facility] Test 02:09:30 (1 of 3 - 3-dose series) [code = HEPATITIS B VACCINES (1 of 3 - 3-dose series)] Future Scheduled 2022-06-11 COVID-19 VACCINE (#1) [facility] Test 02:09:30 [code = COVID-19 VACCINE (#1)] Future Scheduled 2022-06-11 Pneumococcal Vaccine: [facility] Test 02:09:30 Pediatrics (0 to 5 Years) and At-Risk Patients (6 to 64 Years) (1 - PCV) [code = Pneumococcal Vaccine: Pediatrics (0 to 5 Years) and At-Risk Patients (6 to 64 Years) (1 - PCV)] Future Scheduled 2022-06-11 Hepatitis C screening [facility] Test 02:09:30 (procedure) [code = 509291632] Future Scheduled 2022-06-[address] [facility] Test 02:09:30 malignant neoplasm of cervix (procedure) [code = 170873525] Future Scheduled 2022-06-11 INFLUENZA VACCINE Method [facility] Test 02:09:30 [code = INFLUENZA VACCINE] Future Scheduled 2022-06-11 HEPATITIS B VACCINES [facility] Test 02:09:30 (1 of 3 - 3-dose series) [code = HEPATITIS B VACCINES (1 of 3 - 3-dose series)] Future Scheduled 2022-06-11 COVID-19 VACCINE (#1) [facility] Test 02:09:30 [code = COVID-19 VACCINE (#1)] Future Scheduled 2022-06-11 Pneumococcal Vaccine: [facility] Test 02:09:30 Pediatrics (0 to 5 Years) and At-Risk Patients (6 to 64 Years) (1 - PCV) [code = Pneumococcal Vaccine: Pediatrics (0 to 5 Years) and At-Risk Patients (6 to 64 Years) (1 - PCV)] Future Scheduled 2022-06-11 Hepatitis C screening [facility] Test 02:09:30 (procedure) [code = 724700140] Future Scheduled 2022-06-[address] [facility] Test 02:09:30 malignant neoplasm of cervix (procedure) [code = 648997944] Future Scheduled 2022-06-11 INFLUENZA VACCINE [facility] Test 02:09:30 [code = INFLUENZA VACCINE] Future Scheduled 2022-06-11 HEPATITIS B VACCINES [facility] Test 02:09:30 (1 of 3 - 3-dose series) [code = HEPATITIS B VACCINES (1 of 3 - 3-dose series)] Future Scheduled 2022-06-11 COVID-19 VACCINE (#1) [facility] Test 02:09:30 [code = COVID-19 VACCINE (#1)] Future Scheduled 2022-06-11 Pneumococcal Vaccine: [facility] Test 02:09:30 Pediatrics (0 to 5 Years) and At-Risk Patients (6 to 64 Years) (1 - PCV) [code = Pneumococcal Vaccine: Pediatrics (0 to 5 Years) and At-Risk Patients (6 to 64 Years) (1 - PCV)] Future Scheduled 2022-06-11 Hepatitis C screening [facility] Test 02:09:30 (procedure) [code = 641905233] Future Scheduled 2022-06-[address] [facility] Test 02:09:30 malignant neoplasm of cervix (procedure) [code = 668333019] Future Scheduled 2022-06-11 INFLUENZA VACCINE [facility] Test 02:09:30 [code = INFLUENZA VACCINE] Future Scheduled 2022-06-11 HEPATITIS B VACCINES [facility] Test 02:09:30 (1 of 3 - 3-dose series) [code = HEPATITIS B VACCINES (1 of 3 - 3-dose series)] Future Scheduled 2022-06-11 COVID-19 VACCINE (#1) [facility] Test 02:09:30 [code = COVID-19 VACCINE (#1)] Future Scheduled 2022-06-11 Pneumococcal Vaccine: [facility] Test 02:09:30 Pediatrics (0 to 5 Years) and At-Risk Patients (6 to 64 Years) (1 - PCV) [code = Pneumococcal Vaccine: Pediatrics (0 to 5 Years) and At-Risk Patients (6 to 64 Years) (1 - PCV)] Future Scheduled 2022-06-11 Hepatitis C screening [facility] Test 02:09:30 (procedure) [code = 382453056] Future Scheduled 2022-06-[address] [facility] Test 02:09:30 malignant neoplasm of cervix (procedure) [code = 458547239] Future Scheduled 2022-06-11 INFLUENZA VACCINE [facility] Test 02:09:30 [code = INFLUENZA VACCINE] Future Scheduled 2022-06-11 HEPATITIS B VACCINES [facility] Test 02:09:30 (1 of 3 - 3-dose series) [code = HEPATITIS B VACCINES (1 of 3 - 3-dose series)] Future Scheduled 2022-06-11 COVID-19 VACCINE (#1) [facility] Test 02:09:30 [code = COVID-19 VACCINE (#1)] Future Scheduled 2022-06-11 Pneumococcal Vaccine: [facility] Test 02:09:30 Pediatrics (0 to 5 Years) and At-Risk Patients (6 to 64 Years) (1 - PCV) [code = Pneumococcal Vaccine: Pediatrics (0 to 5 Years) and At-Risk Patients (6 to 64 Years) (1 - PCV)] Future Scheduled 2022-06-11 Hepatitis C screening [facility] Test 02:09:30 (procedure) [code = 404833585] Future Scheduled 2022-06-[address] [facility] Test 02:09:30 malignant neoplasm of cervix (procedure) [code = 651707738] Future Scheduled 2022-06-11 INFLUENZA VACCINE [facility] Test 02:09:30 [code = INFLUENZA VACCINE] Future Scheduled 2022-06-11 HEPATITIS B VACCINES [facility] Test 02:09:30 (1 of 3 - 3-dose series) [code = HEPATITIS B VACCINES (1 of 3 - 3-dose series)] Future Scheduled 2022-06-11 COVID-19 VACCINE (#1) [facility] Test 02:09:30 [code = COVID-19 VACCINE (#1)] Future Scheduled 2022-06-11 Pneumococcal Vaccine: [facility] Test 02:09:30 Pediatrics (0 to 5 Years) and At-Risk Patients (6 to 64 Years) (1 - PCV) [code = Pneumococcal Vaccine: Pediatrics (0 to 5 Years) and At-Risk Patients (6 to 64 Years) (1 - PCV)] Future Scheduled 2022-06-11 Hepatitis C screening [facility] Test 02:09:30 (procedure) [code = 815695002] Future Scheduled 2022-06-[address] [facility] Test 02:09:30 malignant neoplasm of cervix (procedure) [code = 101689573] Future Scheduled 2022-06-11 INFLUENZA VACCINE [facility] Test 02:09:30 [code = INFLUENZA VACCINE] Future Scheduled 2022-06-11 HEPATITIS B VACCINES [facility] Test 02:09:30 (1 of 3 - 3-dose series) [code = HEPATITIS B VACCINES (1 of 3 - 3-dose series)] Future Scheduled 2022-06-11 COVID-19 VACCINE (#1) [facility] Test 02:09:30 [code = COVID-19 VACCINE (#1)] Future Scheduled 2022-06-11 Pneumococcal Vaccine: [facility] Test 02:09:30 Pediatrics (0 to 5 Years) and At-Risk Patients (6 to 64 Years) (1 - PCV) [code = Pneumococcal Vaccine: Pediatrics (0 to 5 Years) and At-Risk Patients (6 to 64 Years) (1 - PCV)] Future Scheduled 2022-06-11 Hepatitis C screening [facility] Test 02:09:30 (procedure) [code = 685762225] Future Scheduled 2022-06-[address] [facility] Test 02:09:30 malignant neoplasm of cervix (procedure) [code = 058856608] Future Scheduled 2022-06-11 INFLUENZA VACCINE Method [facility] Test 02:09:30 [code = INFLUENZA VACCINE] Future Scheduled 2022-06-01 HEPATITIS B VACCINES [facility] Test 16:17:59 (1 of 3 - 3-dose series) [code = HEPATITIS B VACCINES (1 of 3 - 3-dose series)] Future Scheduled 2022-06-01 COVID-19 VACCINE (#1) [facility] Test 16:17:59 [code = COVID-19 VACCINE (#1)] Future Scheduled 2022-06-01 Pneumococcal Vaccine: [facility] Test 16:17:59 Pediatrics (0 to 5 Years) and At-Risk Patients (6 to 64 Years) (1 - PCV) [code = Pneumococcal Vaccine: Pediatrics (0 to 5 Years) and At-Risk Patients (6 to 64 Years) (1 - PCV)] Future Scheduled 2022-06-01 Hepatitis C screening [facility] Test 16:17:59 (procedure) [code = 104913919] Future Scheduled 2022-06-01 Screening for [facility] Test 16:17:59 malignant neoplasm of cervix (procedure) [code = 553646479] Future Scheduled 2022-06-01 INFLUENZA VACCINE [facility] Test 16:17:59 [code = INFLUENZA VACCINE] Future Scheduled 2022-04-25 HEPATITIS B VACCINES [facility] Test 12:43:16 (1 of 3 - 3-dose series) [code = HEPATITIS B VACCINES (1 of 3 - 3-dose series)] Future Scheduled 2022-04-25 COVID-19 VACCINE (#1) [facility] Test 12:43:16 [code = COVID-19 VACCINE (#1)] Future Scheduled 2022-04-25 Pneumococcal Vaccine: [facility] Test 12:43:16 Pediatrics (0 to 5 Years) and At-Risk Patients (6 to 64 Years) (1 - PCV) [code = Pneumococcal Vaccine: Pediatrics (0 to 5 Years) and At-Risk Patients (6 to 64 Years) (1 - PCV)] Future Scheduled 2022-04-25 Hepatitis C screening [facility] Test 12:43:16 (procedure) [code = 414814857] Future Scheduled 2022-04-25 Screening for [facility] Test 12:43:16 malignant neoplasm of cervix (procedure) [code = 710832420] Future Scheduled 2022-04-25 INFLUENZA VACCINE [facility] Test 12:43:16 [code = INFLUENZA VACCINE] Future Scheduled 2022-02-27 HEPATITIS B VACCINES [facility] Test 05:24:42 (1 of 3 - 3-dose series) [code = HEPATITIS B VACCINES (1 of 3 - 3-dose series)] Future Scheduled 2022-02-27 COVID-19 VACCINE (#1) [facility] Test 05:24:42 [code = COVID-19 VACCINE (#1)] Future Scheduled 2022-02-27 Pneumococcal Vaccine: [facility] Test 05:24:42 Pediatrics (0 to 5 Years) and At-Risk Patients (6 to 64 Years) (1 - PCV) [code = Pneumococcal Vaccine: Pediatrics (0 to 5 Years) and At-Risk Patients (6 to 64 Years) (1 - PCV)] Future Scheduled 2022-02-27 Hepatitis C screening [facility] Test 05:24:42 (procedure) [code = 889616619] Future Scheduled 2022-02-[address] [facility] Test 05:24:42 malignant neoplasm of cervix (procedure) [code = 376367022] Future Scheduled 2022-02-27 INFLUENZA VACCINE [facility] Test 05:24:42 [code = INFLUENZA VACCINE] Future Scheduled 2022-02-27 HEPATITIS B VACCINES [facility] Test 05:24:42 (1 of 3 - 3-dose series) [code = HEPATITIS B VACCINES (1 of 3 - 3-dose series)] Future Scheduled 2022-02-27 COVID-19 VACCINE (#1) [facility] Test 05:24:42 [code = COVID-19 VACCINE (#1)] Future Scheduled 2022-02-27 Pneumococcal Vaccine: [facility] Test 05:24:42 Pediatrics (0 to 5 Years) and At-Risk Patients (6 to 64 Years) (1 - PCV) [code = Pneumococcal Vaccine: Pediatrics (0 to 5 Years) and At-Risk Patients (6 to 64 Years) (1 - PCV)] Future Scheduled 2022-02-27 Hepatitis C screening [facility] Test 05:24:42 (procedure) [code = 282294186] Future Scheduled 2022-02-[address] [facility] Test 05:24:42 malignant neoplasm of cervix (procedure) [code = 688528138] Future Scheduled 2022-02-27 INFLUENZA VACCINE [facility] Test 05:24:42 [code = INFLUENZA VACCINE] Future Scheduled 2022-02-27 HEPATITIS B VACCINES [facility] Test 05:24:42 (1 of 3 - 3-dose series) [code = HEPATITIS B VACCINES (1 of 3 - 3-dose series)] Future Scheduled 2022-02-27 COVID-19 VACCINE (#1) [facility] Test 05:24:42 [code = COVID-19 VACCINE (#1)] Future Scheduled 2022-02-27 Pneumococcal Vaccine: [facility] Test 05:24:42 Pediatrics (0 to 5 Years) and At-Risk Patients (6 to 64 Years) (1 - PCV) [code = Pneumococcal Vaccine: Pediatrics (0 to 5 Years) and At-Risk Patients (6 to 64 Years) (1 - PCV)] Future Scheduled 2022-02-27 Hepatitis C screening [facility] Test 05:24:42 (procedure) [code = 295312150] Future Scheduled 2022-02-[address] [facility] Test 05:24:42 malignant neoplasm of cervix (procedure) [code = 723765315] Future Scheduled 2022-02-27 INFLUENZA VACCINE [facility] Test 05:24:42 [code = INFLUENZA VACCINE] Future Scheduled 2022-02-27 HEPATITIS B VACCINES [facility] Test 05:24:42 (1 of 3 - 3-dose series) [code = HEPATITIS B VACCINES (1 of 3 - 3-dose series)] Future Scheduled 2022-02-27 COVID-19 VACCINE (#1) [facility] Test 05:24:42 [code = COVID-19 VACCINE (#1)] Future Scheduled 2022-02-27 Pneumococcal Vaccine: [facility] Test 05:24:42 Pediatrics (0 to 5 Years) and At-Risk Patients (6 to 64 Years) (1 - PCV) [code = Pneumococcal Vaccine: Pediatrics (0 to 5 Years) and At-Risk Patients (6 to 64 Years) (1 - PCV)] Future Scheduled 2022-02-27 Hepatitis C screening [facility] Test 05:24:42 (procedure) [code = 677113561] Future Scheduled 2022-02-[address] [facility] Test 05:24:42 malignant neoplasm of cervix (procedure) [code = 562236228] Future Scheduled 2022-02-27 INFLUENZA VACCINE [facility] Test 05:24:42 [code = INFLUENZA VACCINE] Future Scheduled 2022-02-27 HEPATITIS B VACCINES [facility] Test 05:24:42 (1 of 3 - 3-dose series) [code = HEPATITIS B VACCINES (1 of 3 - 3-dose series)] Future Scheduled 2022-02-27 COVID-19 VACCINE (#1) [facility] Test 05:24:42 [code = COVID-19 VACCINE (#1)] Future Scheduled 2022-02-27 Pneumococcal Vaccine: [facility] Test 05:24:42 Pediatrics (0 to 5 Years) and At-Risk Patients (6 to 64 Years) (1 - PCV) [code = Pneumococcal Vaccine: Pediatrics (0 to 5 Years) and At-Risk Patients (6 to 64 Years) (1 - PCV)] Future Scheduled 2022-02-27 Hepatitis C screening [facility] Test 05:24:42 (procedure) [code = 857144059] Future Scheduled 2022-02-[address] [facility] Test 05:24:42 malignant neoplasm of cervix (procedure) [code = 186632691] Future Scheduled 2022-02-27 INFLUENZA VACCINE [facility] Test 05:24:42 [code = INFLUENZA VACCINE] Future Scheduled 2022-02-27 HEPATITIS B VACCINES [facility] Test 05:24:42 (1 of 3 - 3-dose series) [code = HEPATITIS B VACCINES (1 of 3 - 3-dose series)] Future Scheduled 2022-02-27 COVID-19 VACCINE (#1) [facility] Test 05:24:42 [code = COVID-19 VACCINE (#1)] Future Scheduled 2022-02-27 Pneumococcal Vaccine: [facility] Test 05:24:42 Pediatrics (0 to 5 Years) and At-Risk Patients (6 to 64 Years) (1 - PCV) [code = Pneumococcal Vaccine: Pediatrics (0 to 5 Years) and At-Risk Patients (6 to 64 Years) (1 - PCV)] Future Scheduled 2022-02-27 Hepatitis C screening [facility] Test 05:24:42 (procedure) [code = 805505867] Future Scheduled 2022-02-[address] [facility] Test 05:24:42 malignant neoplasm of cervix (procedure) [code = 311471278] Future Scheduled 2022-02-27 INFLUENZA VACCINE [facility] Test 05:24:42 [code = INFLUENZA VACCINE] Future Scheduled 2022-02-27 HEPATITIS B VACCINES [facility] Test 05:24:42 (1 of 3 - 3-dose series) [code = HEPATITIS B VACCINES (1 of 3 - 3-dose series)] Future Scheduled 2022-02-27 COVID-19 VACCINE (#1) [facility] Test 05:24:42 [code = COVID-19 VACCINE (#1)] Future Scheduled 2022-02-27 Pneumococcal Vaccine: [facility] Test 05:24:42 Pediatrics (0 to 5 Years) and At-Risk Patients (6 to 64 Years) (1 - PCV) [code = Pneumococcal Vaccine: Pediatrics (0 to 5 Years) and At-Risk Patients (6 to 64 Years) (1 - PCV)] Future Scheduled 2022-02-27 Hepatitis C screening [facility] Test 05:24:42 (procedure) [code = 995563072] Future Scheduled 2022-02-27 Screening for [facility] Test 05:24:42 malignant neoplasm of cervix (procedure) [code = 166679496] Future Scheduled 2022-02-27 INFLU[facility]ZA VACCINE [facility] 05:24:42 [code = INFLUENZA VACCINE] Future Scheduled 2022-02-27 HEPATITIS B VACCINES [facility] Test 05:24:42 (1 of 3 - 3-dose series) [code = HEPATITIS B VACCINES (1 of 3 - 3-dose series)] Future Scheduled 2022-02-27 COVID-19 VACCINE (#1) [facility] Test 05:24:42 [code = COVID-19 VACCINE (#1)] Future Scheduled 2022-02-27 Pneumococcal Vaccine: [facility] Test 05:24:42 Pediatrics (0 to 5 Years) and At-Risk Patients (6 to 64 Years) (1 - PCV) [code = Pneumococcal Vaccine: Pediatrics (0 to 5 Years) and At-Risk Patients (6 to 64 Years) (1 - PCV)] Future Scheduled 2022-02-27 Hepatitis C screening [facility] Test 05:24:42 (procedure) [code = 472027252] Future Scheduled 2022-02-27 Screening for [facility] Test 05:24:42 malignant neoplasm of cervix (procedure) [code = 917497774] Future Scheduled 2022-02-27 INFLUENZA VACCINE [facility] Test 05:24:42 [code = INFLUENZA VACCINE] Future Scheduled 2021-07-22 COVID-19 VACCINE (1) Met [facility] Test 13:11:04 [code = COVID-19 VACCINE (1)] Future Scheduled 2021-07-22 Hepatitis C screening [facility] Test 13:11:04 (procedure) [code = 361291891] Future Scheduled 2021-07-22 Screening for [facility] Test 13:11:04 malignant neoplasm of cervix (procedure) [code = 227280632] Future Scheduled 2021-07-22 INFLUENZA VACCINE [facility] Test 13:11:04 [code = INFLUENZA VACCINE] Encounters Start End Encounter Admission Attending Care Care Encounter Source Date/Time Date/Time Type Type Clinicians Facility Department ID 2022-08-28 Outpatient [facility] [id number] [place] 10:54:07 [id number] [facility] 2022-04-29 Outpatient [facility] [id number] [place] 09:02:27 [id number] [facility] 2022-04-28 Outpatient [facility] [id number] [place] 12:17:07 [id number] [facility] 2021-12-29 Outpatient [facility] [id number] [place] 11:56:31 [id number] [facility] 2021-12-19 Outpatient [facility] [id number] [place] 14:05:12 [id number] [facility] 2021-12-12 Outpatient [facility] [id number] [place] 12:11:07 [id number] [facility] 2021-12-05 Outpatient [facility] [id number] [place] 20:09:51 [id number] [facility] 2021-10-28 Outpatient [facility] [id number] [place] 17:04:22 [id number] [facility] 2021-07-22 Outpatient [facility]Flavo [facility] [id number] Memoria 00:10:30 r [facility] 05 [facility] 2021-07-22 Preadmit nullFlavo [id number] Memoria 00:10:[address] 2021-07-22 Outpatient nullFlavo [facility] [id number] Memoria 00:10:30 r [facility] 06 [facility] 2021-04-22 Emergency [facility] [id number] Univers 02:13:[address] [facility] 2021-04-18 Emergency [facility] [id number] [facility]17 Emergency [facility] [id number] Univers 17:46:08 [facility] 2022-10-24 2022-10-24 Outpatient Daniels_b DREWG [facility] [id number] [facility]:00:00 00:00:00 [facility] 2022-08-28 2022-08-28 Outpatient Daniels_b GAMALIEL [facility] [id number] [facility] 00:00:00 00:00:00 0310 [facility] 2022-08-28 2022-08-28 Outpatient Daniels_b [facility] [id number] -2022 [facility] 00:00:00 00:00:00 0315 [facility] 2022-04-09 2022-04-09 Outpatient Nodal_J [facility] [id number] [facility] 00:00:00 00:00:00 1020 [facility] 2022-01-02 2022-01-02 Outpatient Deshazo_T [facility] [id number] [facility] 03:37:00 03:37:00 0715 [facility] 2021-12-15 2021-12-15 Outpatient [facility], [facility] [id number] [place] 08:00:00 08:00:[address] [facility] eCozy 2021-12-02 2021-12-02 Travel 1.2.840.1 [id number] Methodi 00:00:00 00:00:[address] 3.430.2.7 0.2.7.3.698 Ho spita .3.274883 084.8 l .8 2021-12-02 2021-12-02 Travel 1.2.840.1 1.2.621.718 [id number] [facility] 00:00:00 00:00:[address] 3.430.2.7 0.2.7.3.698 Ho spita .3.828734 084.8 l .8 2021-11-13 2021-11-13 Transcribe Patience, 1.2.840.1 [id number] Methodi 00:00:00 00:00:00 Orders Jose Miguel G. 74393.1.[address] 3.430.2.7 Hospit a .3.351412 l .8 2021-11-05 2021-11-05 Outpatient Deshazo_T [facility] [id number] -2021 [facility] 12:00:00 12:00:00 0518 [facility] 2021-10-29 2021-10-29 Telephone Rosy, 1.2.840.1 [id number] [facility] 00:00:00 00:00:[address] Mohamed 3.430.2.7 Hospit a .3.667367 l .8 2021-08-20 2021-08-20 Outpatient Deshazo_T [facility] [id number] -2021 [facility] 12:30:00 12:30:00 0302 [facility] 2021-07-08 2021-07-08 Office Ann, 1.2.840.1 [id number] Methodi 13:00:00 14:25:36 Visit Bessie 30110.1.[address] [place] 3.430.2.7 Hosp jo-ann .3.571582 l .8 2021-07-08 2021-07-08 Telephone Anthony, 1.2.840.1 [id number] [facility] 00:00:00 00:00:[address] 3.430.2.7 Hospit a .3.674283 l .8 2021-07-08 2021-07-08 Travel 1.2.840.1 1.2.585.864 [id number] Methodi 00:00:00 00:00:[address] 3.430.2.7 0.2.7.3.698 Ho spita .3.104816 084.8 l .8 2021-07-03 2021-07-03 CAV Melany 2.16.840. 2.16.840.1. CLAC [id number] [facility] 19:00:00 20:00:00 Vladimir 1.227820. 074916.4.6. 467 Medical [id number] [id number] 2021-07-03 2021-07-03 Telephone Seth, 1.2.840.1 [id number] Methodi 00:00:00 00:00:[address] [place] 3.430.2.7 Hosp jo-ann .3.760396 l .8 2021-06-24 2021-06-24 Outpatient Deshazo_T DM[facility] [id number] -2021 [facility] 05:31:00 05:31:00 0104 Medica l Group 2021-06-23 2021-06-23 Telephone Anthony, 1.2.840.1 [id number] Methodi 00:00:00 00:00:[address] 3.430.2.7 Hospit a .3.144326 l .8 2021-06-04 [facility].2.[facility]1 [id number] Methodi 18:20:00 18:13:00 Encounter Rachel Brasher 67270.1.[address] [facility] [place] 3.430.2.7 Hospita Shanda Shahid .3.165243 l Aurelio Schumacher .8 2021-06-16 2021-06-16 Anesthesia Yousif, 1.2.840.1 [id number] Methodi 23:59:59 23:59:59 Event Alesia Laquita 64008.1.[address] 3.430.2.7 Hospit a .3.995502 l .8 2021-06-16 2021-06-16 Surgery Diaz, 1.2.840.1 [id number] Methodi 13:30:00 17:45:[address] [facility] Babies-i 3.430.2.7 Hosp jo-ann .3.012104 l .8 2021-06-16 2021-06-16 Anesthesia Jose Carlos, 1.2.840.1 [id number] Methodi 15:19:00 17:19:00 Event Veto 70794.1.1 309 s t V. 3.430.2.7 Hospit a .3.733601 l .8 2021-06-10 2021-06-10 Surgery Juwan You 1.2.840.1 [id number] 25103 66107 Methodi 08:00:00 10:30:[address] 3.430.2.7 Hospit a .3.499688 l .8 2021-06-10 2021-06-10 Anesthesia Doc, 1.2.840.1 [id number] 534 [id number] Methodi 08:26:00 09:40:00 Event Sofi 80634.1.[address] Marquita 3.430.2.7 Hosp jo-ann .3.125672 l .8 2021-06-09 2021-06-09 Prep for Robert, 1.2.840.1 [id number] 946 [id number] Methodi 00:00:00 00:00:00 Surgery Gayle 36183.1.[address] 3.430.2.7 Hospit a .3.951183 l .8 2021-06-09 2021-06-09 Prep for Robert, 1.2.840.1 [id number] 286 [id number] Methodi 00:00:00 00:00:00 Surgery Gayle 94480.1.[address] 3.430.2.7 Hospit a .3.517926 l .8 2021-06-05 2021-06-05 Anesthesia Frankie Chowdhury 1.2.840.1 [id number] Methodi 10:16:00 11:41:00 Event Chandler Silverman 07769.1.[address] 3.430.2.7 Hospit a .3.203036 l .8 2021-06-05 2021-06-05 Surgery PatiJuwan 1.2.840.1 [id number] 56612 51208 Methodi 09:30:00 11:05:[address] 3.430.2.7 Hospit a .3.417835 l .8 2021-06-03 2021-06-03 Prep for Anthony, 1.2.840.1 [id number] 36817 09618 Methodi 00:00:00 00:00:00 Surgery Forrest 35710.1.[address] 3.430.2.7 Hospit a .3.315478 l .8 2021-06-03 2021-06-03 Telephone Adelita, 1.2.840.1 [id number] 247 [id number] Methodi 00:00:00 00:00:00 Leah 43545.1.1 218 s t 3.430.2.7 Hospit a .3.421475 l .8 2021-05-28 2021-05-28 [place] [address]-8 021 [facility]oted 05:00:00 05:00:00 1208 Medica l Group 2021-05-27 2021-05-27 Patient Tam, 1.2.840.1 [id number] 152 [id number] Methodi 00:00:00 00:00:00 Outreach Maria M 06896.1.[address] 3.430.2.7 Hospit a .3.105913 l .8 2021-05-27 2021-05-27 Travel 1.2.840.1 1.2.354.712 8507 796048 Methodi 00:00:00 00:00:[address] 3.430.2.7 0.2.7.3.698 Ho spita .3.442809 084.8 l .8 2021-05-27 2021-05-27 Orders Boles, 1.2.840.1 [id number] 2100 540994 Methodi 00:00:00 00:00:00 Only Anila 68068.1.[address] 3.430.2.7 Hospit a .3.469140 l .8 2021-05-26 2021-05-26 Outpatient Adams_R DMG [facility] 64915-3 021 [facility] 03:30:00 03:30:00 1206 Medica l Group 2021-05-26 2021-05-26 Telephone Anthony, 1.2.840.1 [id number] 2100 486324 Methodi 00:00:00 00:00:[address] 3.430.2.7 Hospit a .3.179458 l .8 2021-05-19 2021-05-25 Hospital Juwan You 1.2.840.1 [id number] 2100 743166 Methodi 06:00:00 15:59:00 Encounter Tom Barber 64274.1.[address] Marilu Koch 3.430.2.7 Hospita .3.022861 l .8 2021-05-21 2021-05-21 Outpatient DMG [facility] 72578-7 021 Devoted 03:30:00 03:30:00 1201 Medica l Group 2021-05-19 2021-05-19 Anesthesia Adam, 1.2.840.1 [id number] Methodi 18:45:00 20:31:00 Event Sukhjinder 23481.1.[address] Kendall 3.430.2.7 Hospit a .3.358076 l .8 2021-05-19 2021-05-19 Surgery Juwan You 1.2.840.1 [id number] 60804 66867 Methodi 18:50:00 19:55:[address] 3.430.2.7 Hospit a .3.805772 l .8 2021-05-19 2021-05-19 Anesthesia AdamSukhjinder terry 1.2.840.1 [id number] Methodi 12:00:00 15:14:00 Event Hanane Ledezma 98254.1.[address] 3.430.2.7 Hospit a .3.819756 l .8 2021-05-19 2021-05-19 Surgery Juwan You 1.2.840.1 [id number] 96396 Methodi 12:05:00 14:45:[address] 3.430.2.7 Hospit a .3.301081 l .8 2021-05-19 2021-05-19 Travel 1.2.840.1 1.2.513.157 8053 689764 Methodi 00:00:00 00:00:[address] 3.430.2.7 0.2.7.3.698 Ho spita .3.555620 084.8 l .8 2021-05-14 2021-05-14 Telephone Corin, 1.2.840.1 [id number] 21 [id number] Methodi 00:00:00 00:00:[address] 3.430.2.7 Hospit a .3.932273 l .8 2021-05-14 2021-05-14 Prep for Anthony, 1.2.840.1 [id number] Methodi 00:00:00 00:00:00 Surgery Forrest 43895.1.[address] 3.430.2.7 Hospit a .3.393104 l .8 2021-05-13 2021-05-13 Orders Doctor JOANNA 1.2.840.114 [id number] Univers 00:00:00 00:00:00 Only Unassigned, BEKA 350.1.13.10 ity of [place] [facility] 4.2.7.2.686 Baljinder as [phone] [address] 2021-05-12 2021-05-12 Office Juwan You 1.2.840.1 [id number] 99183 57096 Methodi 09:00:00 09:32:[address] 3.430.2.7 Hospit a .3.571578 l .8 2021-05-12 2021-05-12 Outpatient JUWAN YOU [facility] [id number] 0769 [place] 00:00:00 00:00:[address] 2021-05-12 2021-05-12 Telephone Anthony, 1.2.840.1 [id number] 2099 712040 Methodi 00:00:00 00:00:[address] 3.430.2.7 Hospit a .3.606849 l .8 2021-05-12 2021-05-12 Travel 1.2.840.1 1.2.733.080 9139 213108 Methodi 00:00:00 00:00:[address] 3.430.2.7 0.2.7.3.698 Ho spita .3.754753 084.8 l .8 2021-05-08 2021-05-08 Orders Anthony, 1.2.840.1 [id number] 587640 4584 Methodi 00:00:00 00:00:00 Only Forrest 76933.1.[address] 3.430.2.7 Hospit a .3.778087 l .8 2021-05-08 2021-05-08 Telephone Ramana, 1.2.840.1 [id number] Methodi 00:00:00 00:00:[address] 3.430.2.7 Hospit a .3.320059 l .8 2021-05-05 2021-05-05 Office Pati Juwan 1.2.840.1 [id number] 60 Methodi 14:00:00 15:41:[address] 3.430.2.7 Hospit a .3.454066 l .8 2021-05-05 2021-05-05 Travel 1.2.840.1 1.2.873.222 4580 465817 Methodi 00:00:00 00:00:[address] 3.430.2.7 0.2.7.3.698 Ho spita .3.514065 084.8 l .8 2021-05-01 2021-05-01 Telephone Joe, 1.2.840.1 [id number] Methodi 00:00:00 00:00:[address] Diaz-Hsi 3.430.2.7 Hosp jo-ann .3.509478 l .8 2021-04-08 2021-04-08 Outpatient Sj BHAT [facility] [id number] 799 Univers 09:00:00 09:00:00 MONA low of [facility] [place] 2021-03-24 2021-03-24 Transition Misha Garcia 1.2.840.114 878 35267 Univers 00:00:00 00:00:00 of Care Missy Guzman 350.1.13.10 it y of [place] [phone] [facility] [address] [place] 2021-03-19 2021-03-21 [facility] Jimena Easton 1.2.840.1 1007 [id number] Univers 08:24:00 23:08:00 Encounter Eze Dias Yared 85196.1.1 ity of [place] 3.104.2.7 [place] .3.058655 Medica l .8 [place] 2021-03-21 2021-03-21 [facility]patient [facility] 32836-4 021 [facility] 08:01:00 08:01:00 1001 Medica l Group 2021-03-19 2021-03-19 Orders Doctor 1.2.840.0 [id number] 32103 235 Univers 00:00:00 00:00:00 Only Unassigned, 61255.1.1 ity of [place] 3.104.2.7 [place] .3.380062 Medica l .8 [place] 2021-03-19 2021-03-19 Travel 1.2.840.1 1.2.696.577 6301 4264 Univers 00:00:00 00:00:00 44776.1.1 350.1.13.10 ity of 3.104.2.7 [place].3.698 [place] .3.736372 084.8 Medica l .8 [place] 2021-01-21 2021-01-29 Inpatient [facility] 14053 63993 Memoria 15:50:00 20:14:[address] 2021-01-21 2021-01-29 Inpatient U AYDEE, [facility] CAR 7512 [facility] 10:50:00 15:14:00 MONISHA 2021-01-21 2021-01-29 Outpatient Aydee, [facility] [id number] 10:50:00 15:14:00 Monisha 2021-01-24 2021-01-24 [facility]patient [facility] 22396-9 021 [facility] 08:00:00 08:00:00 0806 Medica l Group 2021-01-21 2021-01-21 Outpatient Aydee [facility] [id number] 20200 10:50:00 10:50:00 Monisha 12 2021-01-03 2021-01-03 Office DOMINIQUE Diane 1.2.840.114 [id number] 07:44:43 09:30:54 Visit Alexandr ALTMAN 350.1.13.58 MEDICAL 9.2.7.2.686 [facility] [id number] 1 2021-01-03 2021-01-03 Office DOMINIQUE Diane 1.2.840.114 [id number] 903 [place] 07:44:43 09:30:54 Visit Alexandr ALTMAN 350.1.13.58 H ealth MEDICAL 9.2.7.2.686 [facility] 744.1566701 1 2020-12-26 2020-12-26 Outpatient Sj KIMBLE [facility] [id number] Univers 10:30:00 [facility]:30[facility] 2020-12-24 2020-12-25 Outpatient nullFlavo Digestive 222 [id number] Memoria 15:32:00 04:59:00 r Disease 11 l Center [place] 2020-12-24 2020-12-24 Outpatient WRIGHT, [facility] 7511 [facility] 10:32:00 23:59:00 AMES 2020-12-24 2020-12-24 Outpatient Wright, [facility] [id number] 10:32:00 23:59:00 Hui Madden 2020-11-12 2020-11-12 Outpatient Sj GONZALEZ [facility] [id number] Univers 09:00:00 09:00:00 JOSE LUIS [facility] 2020-10-27 2020-10-27 Keyona Kimble [facility] 1.2.840.114 [id number] 00:00:00 00:00:00 (Out) Oz Lehman 350.1.13.10 [place] 4.2.7.2.686 Professio [phone] [facility] 059 [facility] 2020-10-27 2020-10-27 Keyona Kimble [facility] 1.2.840.114 [id number] 98 Univers 00:00:00 00:00:00 (Out) Sendbhavana [facility] [place] 350.1.13.10 ity of [place] Profess[place] [phone] Pa dical nal 059 [facility] 2020-10-24 2020-10-24 Orders Doctor JOANNA 1.2.840.114 [id number] 00:00:00 00:00:00 Only Unassigned, BEKA 350.1.13.10 [place] [facility] 4.2.7.2.686 [id number] 009 2020-10-24 2020-10-24 Orders Doctor JOANNA 1.2.840.114 [id number] 42 Univers 00:00:00 00:00:00 Only Unassigned, BEKA 350.1.13.10 ity of [place] [facility] 4.2.7.2.686 Baljinder as [phone] [facility] 009 [place] 2020-09-24 2020-09-24 Refill Carlos, [facility] 1.2.840.114 [id number] 24 00:00:00 00:00:00 Jose Luis Lehman 350.1.13.10 [place] 4.2.7.2.686 Professio [phone] [facility] 220 [facility] 2020-09-24 2020-09-24 Refill Carlos, [facility] 1.2.840.114 [id number] 24 Univers 00:00:00 00:00:00 Jose Luis Lehman 350.1.13.10 i ty of [place] [phone] Pa dical nal 220 [facility] 2020-09-09 2020-09-09 Patient Daniel, [facility] 1.2.840.114 [id number] 44 00:00:00 00:00:00 Outreach Earl PRIMARY 350.1.13.10 Manuel CARE 4.2.7.2.686 PAVILLION [phone] 388 2020-09-09 2020-09-09 Patient Daniel, [facility] 1.2.840.114 [id number] Univers 00:00:00 00:00:00 Outreach Earl PRIMARY 350.1.13.10 i ty of [place].2.[place] [phone] Me dical [address] [place] 2020-08-06 2020-08-06 Outpatient R CARLOS [facility] [id number] Univers 14:30:00 14:30:[address] [facility] 2020-08-05 2020-08-05 [facility] [id number] Univers 13:30:00 13:30:[address] [facility] 2020-07-23 2020-07-23 [facility] 1.2.840.114 [id number] Univers 13:39:08 23:59:00 Encounter Deja PRIMARY 350.1.13.10 ity of [place] 4[place]2.7.2.[place] [phone] Pa dical 807 [place] 2020-07-23 2020-07-23 Office [facility] 1.2.796.250 9566 5976 13:31:20 14:37:36 Visit Deja PRIMARY 350.1.13.10 A CARE 4.2.7.2.686 PAVILLION [phone] [facility] 2020-07-23 2020-07-23 Office [facility] 1.2.748.191 5979 5976 [facility] 13:31:20 14:37:36 Visit Deja PRIMARY 350.1.13.10 ity of [place]2.[place] [phone] Pa dical [address] [place] 2020-07-23 2020-07-23 Outpatient [facility] [id number] Univers 13:30:00 13:30:[address] [facility] 2020-07-09 2020-07-09 Outpatient R [facility] [id number] Univers 09:00:00 09:00:[address] [facility] 2020-07-03 2020-07-03 [facility] 1.2.630.351 [id number] [id number] Univers 00:00:00 00:00:00 Oz Lehman 350.1.13.10 it[place] of [place] [phone] Pa dicms nal [address] [place] [address] 2020-06-27 2020-06-27 Office [facility] 1.2.840.114 [id number] Univers 10:05:43 11:00:00 Visit Oz Lehman 350.1.13.10 ity of [place]7.2.[place] Profess[place] [phone] [address] 2020-06-27 2020-06-27 [facility] 1.2.840.114 [id number] Univers 10:05:43 11:00:00 Visit Oz LEHMAN 350.1.13.10 [facility] 4.2.7.2.[place] PROFESS[place] [phone] [address] 2020-06-27 2020-06-27 Outpatient R LAMIN [facility] [id number] Univers 09:30:00 11:00:00 SENDIL ity of [facility] [place] 2020-06-27 2020-06-27 Outpatient R LAMIN [facility] [id number] Univers 09:30:00 09:30:[address] [facility] 2020-05-28 2020-05-28 Laboratory Pc, Adc Echo Room 1 - [facility] 1 .2.840.114 [id number] Univers 08:01:11 08:48:06 Only Oz Kimble 350.1.13. 10 ity of [place].2.[place] Profess[place] [phone] [address] 2020-05-28 2020-05-28 Outpatient R [facility] [id number] Univers 08:00:00 08:00:00 ity of [facility] [place] 2020-05-10 2020-05-10 Nurse Visit, Adc Nurse [facility] 1.2.840.1 14 [id number] Univers 08:31:07 08:43:46 Visit Oz Kimble 350.1.13. 10 [place] of [place].2.[place] [phone] Me dical nal 059 [facility] 2020-05-10 2020-05-10 Outpatient R LAMIN [facility] [id number] Univers 08:30:00 08:30:00 SENDIL ity of [facility] [place] 2020-05-07 2020-05-07 Outpatient R [facility] [id number] Univers 08:00:00 08:00:00 ity of [facility] [place] 2020-05-01 2020-05-01 Office [facility] 1.2.840.114 [id number] Univers 11:02:55 12:04:48 Visit Jose Luis Lehman 350.1.13.10 i ty [facility] 4.2.7.2.[place] [phone] Pa dical nal 220 [facility] 2020-05-01 2020-05-01 Outpatient R CARLOS [facility] [id number] Univers 10:30:00 10:30:[address] [facility] 2020-04-25 2020-04-25 Office [facility] 1.2.840.114 [id number] Univers 10:07:58 10:48:50 Visit Oz Lehman 350.1.13.10 ity [facility] 4.2.7.2.[place] [phone] Pa dical nal 059 [facility] 2020-04-25 2020-04-25 Out[facility] [id number] Univers 10:00:00 10:00:[address] [facility] 2020-04-25 2020-04-25 Orders Doctor JOANNA 1.2.840.114 [id number] Univers 00:00:00 00:00:00 Only Unassigned, BEKA 350.1.13.10 ity of [place] [facility] 4.2.7.2.686 Baljinder as [phone] [address] 2020-04-05 2020-04-05 Outpatient [facility] [id number] Univers 09:30:00 09:30:[address] [facility] 2020-04-03 2020-04-03 Panel Machine Tender 2, Adc Lab [facility] 1.2.840.114 [id number] Univers 13:13:38 13:28:38 Visit AdMona robles Levi 350.1.13.10 ity of [place] [phone] Pa dical nal 353 [facility] 2020-04-03 2020-04-03 Outpatient R ADUM, [facility] [id number] Univers 13:00:00 13:00:[address] [facility] 2020-04-02 2020-04-02 Office Ad, [facility] 1.2.840.114 [id number] Univers 09:00:33 09:54:22 Visit Mona Misbah Lehman 350.1.13.10 ity [facility] 4.2.7.2.[place] [phone] Pa dical [facility] 134 [facility] 2020-04-02 2020-04-02 Outpatient R AD, [facility] [id number] Univers 08:30:00 08:30:00 [facility] 2020-04-02 2020-04-02 Outpatient R AD, [facility] [id number] Univers 08:30:00 08:30:00 MONA [facility] 2020-04-02 2020-04-02 Emergency Khan, [facility] 1.2.840.114 [id number] Univers 00:24:00 01:09:00 Marlin Lehman 350.1.13.10 i ty of [place].7.2.[place] [phone] [facility] 0[address] [place] 2020-04-02 2020-04-02 Orders Doctor JOANNA 1.2.840.114 [id number] Univers 00:00:00 00:00:00 Only Unassigned, BEKA 350.1.13.10 ity of [place] [facility] 4.2.7.2.686 Baljinder as [phone] [facility] 009 [place] 2020-03-16 2020-03-16 Telephone [facility] 1.2.840.114 [id number] Univers 00:00:00 00:00:00 Yury Lehman 350.1.13.10 i ty of [place]2.[place] [phone] Pa dical nal 134 [facility] 2020-03-08 2020-03-08 Outpatient [facility] [id number] Univers 11:00:00 11:00:00 LIMA low o f [facility] [place] 2020-03-07 2020-03-07 [facility] 1.2.840.114 [id number] Univers 00:00:00 00:00:00 Lima Lehman 350.1.13.10 ity of [place].2.[place] [phone] Pa dical nal 188 [facility] 2020-02-06 2020-02-06 Outpatient [facility] [id number] Univers 09:30:00 09:30:00 BRANDON [facility] 2020-02-06 2020-02-06 Office [facility] 1.2.840.114 [id number] Univers 08:57:01 09:24:05 Visit Brandon [place] 350.1.13.10 i ty of [place].2.[place] [phone] Pa dical nal 044 [facility] 2020-01-25 2020-01-31 Inpatient 1 ChivoJose husseinRei [facility] [id number] 21:31:00 18:15:00 Rei [facility] 2020-01-24 2020-01-24 Outpatient R DIDIER [facility] [id number] Univers 09:45:00 09:45:[address] [facility] 2020-01-23 2020-01-23 Outpatient R DIDIER [facility] [id number] Univers 10:30:00 10:30:00 HUM [facility] 2019-12-18 2019-12-18 Outpatient R BARRERA [facility] [id number] Univers 08:00:00 08:00:[address] [facility] 2019-12-04 2019-12-04 Outpatient R DORA [facility] [id number] Univers 14:15:00 14:15:00 BRANDON ity of [facility] [place] 2019-11-06 2019-11-06 Telemedici NarinderMAGDY noriega 1.2.840.114 [id number] Univers 07:49:37 08:46:52 ne Visit Yissel Parr 350.1.13.10 ity [facility] 4.2.7.2.686 Baljinder as BANK [phone] [facility] BLDG. [address] [place] 2019-11-06 2019-11-06 Outpatient R BARRERA [facility] [id number] Univers 08:00:00 08:00:[address] [facility] 2019-10-01 2019-10-01 Emergency [facility] 1.2.518.870 [id number] Univers 15:47:29 19:01:00 Stacie Lehman 350.1.13.10 i ty [facility] 4.2.7.2.[place] [phone] [facility] 0[address] [place] 2019-09-05 2019-09-05 Outpatient Sj JOHN [facility] [id number] Univers 13:30:00 13:30:[address] [facility] 2019-08-28 2019-08-28 Outpatient R ZEKE RUVALCABA [facility] [id number] Univers 15:00:00 15:00:00 ity of [facility] [place] 2019-02-27 2019-02-27 Telephone [facility] 1.2.840.114 [id number] Univers 00:00:00 00:00:00 Adán T SPECIALTY 350.1.13.10 ity of [place]2.[place] [phone] Pa jim MORALES [address] [facility] 2019-02-25 2019-02-25 Telephone [facility] 1.2.840.114 [id number] Univers 00:00:00 00:00:00 Adán T SPECIALTY 350.1.13.10 ity of [place]2.[place] C[place] AT [phone] Pa jim MORALES [address] [facility] 2019-02-22 2019-02-22 [facility] Oz Kimble 1.2.8 40.114 [id number] Univers 09:19:22 23:59:00 Encounter Outpt-Josy, [facility] [place] 350.1.13.10 ity of Hospital 4.2.7.2.686 Baljinder as [phone] [facility] [address] [place] 2019-02-22 2019-02-22 Hospital Oz Kimble 1.2.8 40.114 [id number] Univers 08:00:00 09:18:00 Encounter Outpt-Josy, Ccl [place] 350.1.13.10 ity of Hospital 4.2.7.2.686 Baljinder as [phone] [address] 2019-02-17 2019-02-17 Office Germán [facility] 1.2.840.114 [id number] Univers 13:09:08 13:54:39 Visit [address] [facility] 350.1.13.10 ity of [place] 4.2.7.2.686 [place] [facility] [phone] [facility] [address] 2019-02-17 2019-02-17 Orders Doctor JOANNA 1.2.840.114 [id number] Univers 00:00:00 00:00:00 Only Unassigned, BEKA 350.1.13.10 ity of [place] [facility] 4.2.7.2.686 Baljinder as [phone] [facility] [address] 2019-01-25 2019-01-25 Telephone Traci Kimble [id number] Univers 00:00:00 00:00:00 [place] 350.1.13.10 ity of Hospital 4.2.7.2.686 Baljinder as [phone] [address] 2019-01-25 2019-01-25 Telephone Traci Kimble [id number] [id number] Univers 00:00:00 00:00:00 [place] 350.1.13.10 ity of Hospital 4.2.7.2.686 Baljinder as [phone] [address] 2019-01-20 2019-01-20 Office Lamin NVIMELDA 1.2.840.114 [id number] Univers 08:55:54 09:56:43 Visit Oz Lehman 350.1.13.10 [place] [phone] Pa dical nal 059 [facility] 2019-01-14 2019-01-15 Emergency [place], TRAUMA 1.2.840.114 [id number] Univers 18:20:35 00:24:00 [facility] 350.1.13.10 [place] [phone] [address] 2019-01-13 2019-01-13 Office [facility] [address] 1.2.840.114 [id number] Univers 08:10:44 09:19:41 Visit Lima Lehman 350.1.13.10 it[place] [phone] Pa dical nal 205 [facility] 2018-05-24 2018-05-[address], [facility] [id number] [facility] 00:00:00 00:00:00 BHAMIDIPATI 2016-07-24 2016-07-30 Inpatient nullFlavo [facility] [id number] Memoria 02:04:00 16:20:[address] 2016-07-23 2016-07-30 Outpatient Yaquelin [facility] [id number] 20:04:00 10:20:00 Luna 10 2016-06-10 2016-06-15 Inpatient nullFlavo [facility] [id number] Memoria 16:02:00 18:23:[address] 2016-06-10 2016-06-15 Outpatient Franck [facility] [id number] 10:02:00 12:23:00 Joe W 09 2014-06-26 2014-06-26 nullFlavo [facility] [id number] Memoria 05:25:00 15:14:00 Emergency r [address] 2014-06-25 2014-06-26 Outpatient Courtney, 2.16.840. 2.16.840. 1. [id number] 23:25:00 09:14:00 Atul 1.698408. [id number] 08 Cem 3.615.0.1 5.0.379 59 5617-10-25 2013-04-15 Emergency nullFlavo [id number] Memoria 21:04:00 01:45:00 r [place] 07 [place] 2013-04-14 2013-04-15 Outpatient 2.16.840. 2.16.840.1. 4 [id number] Memoria 21:04:00 01:45:00 1.848887. 198144.3.61 07 l 3.615.0.1 5.0.101 Jake n [facility] 2013-04-14 2013-04-15 Outpatient 2.16.840. 2.16.840.1. 4 [id number] Memoria 21:04:00 01:45:00 1.756389. 284554.3.61 07 l 3.615.0.1 5.0.101 Jake n [facility] 2013-04-14 2013-04-15 Outpatient 2.16.840. 2.16.840.1. 4 [id number] Memoria 21:04:00 01:45:00 1.468012. 533215.3.61 07 l 3.615.0.1 5.0.101 Jake n [facility] 2013-04-14 2013-04-15 Outpatient 2.16.840. 2.16.840.1. 4 [id number] Memoria 21:04:00 01:45:00 1.684343. 791954.3.61 07 l 3.615.0.1 5.0.101 Jake n [facility] 2013-04-14 2013-04-15 Outpatient 2.16.840. 2.16.840.1. 4 [id number] Memoria 21:04:00 01:45:00 1.740386. 786000.3.61 07 l 3.615.0.1 5.0.101 Jake n [facility] 2012-03-14 2012-03-14 Emergency nullFlavo [id number] Memoria 16:32:00 22:39:00 r [place] 04 l [place] 2011-11-28 2011-11-30 OU nullFlavo [facility] [id number] Memoria 12:16:00 20:40:00 r Medical 03 l [facility] 2011-09-18 2011-09-18 Emergency nullFlavo [facility] [id number] Memoria 08:23:00 13:34:00 r Medical 02 [facility] 2011-09-01 2011-09-09 Inpatient nullFlavo [facility] [id number] Memoria 01:40:00 15:00:00 r Medical 01 [facility] 2011-08-19 2011-08-23 Inpatient nullFlavo [facility] [id number] Memoria 14:25:00 15:28:00 r Medical 00 [facility] Results Test Description Test Time Test Comments Results Result Comments Source AFB culture 2021-07-22 18:13:19 Test Item Value Reference Range Interpretation Comme nts AFB culture isolate No growth after 6 weeks of Specimen InformationSpecimen (test code = 543-9) incubation. Source: DrainageSpecimen Site: Thigh: infected wound right thigh [facility] [id number] 18:13:19 Test Item Value Reference Range Interpretation Comments AFB culture No growth Specimen isolate (test after 6 weeks InformationSp ecimen code = 543-9) of Source: [place] geSpecimen incubation. Site: Thigh: in fected wound right [facility] [id number] 18:13:19 Test Item Value Reference Range Interpretation Comments AFB culture No growth Specimen isolate (test after 6 weeks InformationSp ecimen code = 543-9) of Source: [place] geSpecimen incubation. Site: Thigh: in fected wound right [facility] [id number] 18:13:19 Test Item Value Reference Range Interpretation Comments AFB culture No growth Specimen isolate (test after 6 weeks InformationSp ecimen code = 543-9) of Source: [place] geSpecimen incubation. Site: Thigh: in fected wound right [facility] [id number] 18:13:19 Test Item Value Reference Range Interpretation Comments AFB culture No growth Specimen isolate (test after 6 weeks InformationSp ecimen code = 543-9) of Source: [place] geSpecimen incubation. Site: Thigh: in fected wound right [facility] [id number] 18:13:19 Test Item Value Reference Range Interpretation Comments AFB culture No growth Specimen isolate (test after 6 weeks InformationSp ecimen code = 543-9) of Source: [place] geSpecimen incubation. Site: Thigh: in fected wound right [facility] [id number] 18:13:19 Test Item Value Reference Range Interpretation Comments AFB culture No growth Specimen isolate (test after 6 weeks InformationSp ecimen code = 543-9) of Source: [place] geSpecimen incubation. Site: Thigh: in fected wound right [facility] [id number] 18:13:19 Test Item Value Reference Range Interpretation Comments AFB culture No growth Specimen isolate (test after 6 weeks InformationSp ecimen code = 543-9) of Source: [place] geSpecimen incubation. Site: Thigh: in fected wound right [facility] [id number] 18:13:19 Test Item Value Reference Range Interpretation Comments AFB culture No growth Specimen isolate (test after 6 weeks InformationSp ecimen code = 543-9) of Source: [place] geSpecimen incubation. Site: Thigh: in fected wound right [facility] [id number] 18:13:19 Test Item Value Reference Range Interpretation Comments AFB culture No growth Specimen isolate (test after 6 weeks InformationSp ecimen code = 543-9) of Source: [place] geSpecimen incubation. Site: Thigh: in fected wound right [facility] [id number] 18:13:19 Test Item Value Reference Range Interpretation Comments AFB culture No growth Specimen isolate (test after 6 weeks InformationSp ecimen code = 543-9) of Source: [place] geSpecimen incubation. Site: Thigh: in fected wound right [facility] [id number] 18:15:13 Test Item Value Reference Range Interpretation Comments Fungus culture No growth Specimen isolate (test after 4 weeks InformationSp ecimen code = 1441) of Source: TissueS pecimen incubation. Site: Thigh [facility]2022-01-25 18:15:13 Test Item Value Reference Range Interpretation Comments Fungus culture No growth Specimen isolate (test after 4 weeks InformationSp ecimen code = 1441) of Source: TissueS pecimen incubation. Site: [place] [id number] 18:15:13 Test Item Value Reference Range Interpretation Comments Fungus culture No growth Specimen isolate (test after 4 weeks InformationSp ecimen code = 1441) of Source: TissueS pecimen incubation. Site: [facility]2022-01-25 18:15:13 Test Item Value Reference Range Interpretation Comments Fungus culture No growth Specimen isolate (test after 4 weeks InformationSp ecimen code = 1441) of Source: TissueS pecimen incubation. Site: [facility]2022-01-25 18:15:13 Test Item Value Reference Range Interpretation Comments Fungus culture No growth Specimen isolate (test after 4 weeks InformationSp ecimen code = 1441) of Source: TissueS pecimen incubation. Site: [facility]2022-01-25 18:15:13 Test Item Value Reference Range Interpretation Comments Fungus culture No growth Specimen isolate (test after 4 weeks InformationSp ecimen code = 1441) of Source: TissueS pecimen incubation. Site: [facility]2022-01-25 18:15:13 Test Item Value Reference Range Interpretation Comments Fungus culture No growth Specimen isolate (test after 4 weeks InformationSp ecimen code = 1441) of Source: TissueS pecimen incubation. Site: [facility]2022-01-25 18:15:13 Test Item Value Reference Range Interpretation Comments Fungus culture No growth Specimen isolate (test after 4 weeks InformationSp ecimen code = 1441) of Source: TissueS pecimen incubation. Site: [facility]2022-01-25 18:15:13 Test Item Value Reference Range Interpretation Comments Fungus culture No growth Specimen isolate (test after 4 weeks InformationSp ecimen code = 1441) of Source: TissueS pecimen incubation. Site: [facility]2022-01-25 18:15:13 Test Item Value Reference Range Interpretation Comments Fungus culture No growth Specimen isolate (test after 4 weeks InformationSp ecimen code = 1441) of Source: TissueS pecimen incubation. Site: [place] [id number] 18:15:13 Test Item Value Reference Range Interpretation Comments Fungus culture No growth Specimen isolate (test after 4 weeks InformationSp ecimen code = 1441) of Source: TissueS pecimen incubation. Site: [place] [id number] 18:15:13 Test Item Value Reference Range Interpretation Comments Fungus culture No growth Specimen isolate (test after 4 weeks InformationSp ecimen code = 1441) of Source: TissueS pecimen incubation. Site: [place] [id number] 18:15:13 Test Item Value Reference Range Interpretation Comments Fungus culture No growth Specimen isolate (test after 4 weeks InformationSp ecimen code = 1441) of Source: TissueS pecimen incubation. Site: [place] 206302-01-01 14:31:13 Test Item Value Reference Range Interpretation Comments Anaerobic No anaerobic Specimen culture isolate organisms InformationS pecimen (test code = isolated. Source: TissueS pecimen 552) Site: [place] 206302-01-01 14:31:13 Test Item Value Reference Range Interpretation Comments Anaerobic No anaerobic Specimen culture isolate organisms InformationS pecimen (test code = isolated. Source: TissueS pecimen 552) Site: [place] 206302-01-01 14:31:13 Test Item Value Reference Range Interpretation Comments Anaerobic No anaerobic Specimen culture isolate organisms InformationS pecimen (test code = isolated. Source: TissueS pecimen 552) Site: [place] 206302-01-01 14:31:13 Test Item Value Reference Range Interpretation Comments Anaerobic No anaerobic Specimen culture isolate organisms InformationS pecimen (test code = isolated. Source: TissueS pecimen 552) Site: [place] 206302-01-01 14:31:13 Test Item Value Reference Range Interpretation Comments Anaerobic No anaerobic Specimen culture isolate organisms InformationS pecimen (test code = isolated. Source: TissueS pecimen 552) Site: [place] 206302-01-01 14:31:13 Test Item Value Reference Range Interpretation Comments Anaerobic No anaerobic Specimen culture isolate organisms InformationS pecimen (test code = isolated. Source: TissueS pecimen 552) Site: [place] 206302-01-01 14:31:13 Test Item Value Reference Range Interpretation Comments Anaerobic No anaerobic Specimen culture isolate organisms InformationS pecimen (test code = isolated. Source: TissueS pecimen 552) Site: [place] 206302-01-01 14:31:13 Test Item Value Reference Range Interpretation Comments Anaerobic No anaerobic Specimen culture isolate organisms InformationS pecimen (test code = isolated. Source: TissueS pecimen 552) Site: [place] 206302-01-01 14:31:13 Test Item Value Reference Range Interpretation Comments Anaerobic No anaerobic Specimen culture isolate organisms InformationS pecimen (test code = isolated. Source: TissueS pecimen 552) Site: [place] 206302-01-01 14:31:13 Test Item Value Reference Range Interpretation Comments Anaerobic No anaerobic Specimen culture isolate organisms InformationS pecimen (test code = isolated. Source: TissueS pecimen 552) Site: [place] 206302-01-01 14:31:13 Test Item Value Reference Range Interpretation Comments Anaerobic No anaerobic Specimen culture isolate organisms InformationS pecimen (test code = isolated. Source: TissueS pecimen 552) Site: [place] 206302-01-01 14:31:13 Test Item Value Reference Range Interpretation Comments Anaerobic No anaerobic Specimen culture isolate organisms InformationS pecimen (test code = isolated. Source: TissueS pecimen 552) Site: [place] 206302-01-01 14:31:13 Test Item Value Reference Range Interpretation Comments Anaerobic No anaerobic Specimen culture isolate organisms InformationS pecimen (test code = isolated. Source: [facility]S pecimen 552) [id number] 16:51:58 Test Item Value Reference Range Interpretation Comments Gram stain No WBC's or Specimen isolate (test organisms seen. Information Specimen code = 1469) Source: TissueS pecimen [facility] [id number] 16:51:58 Test Item Value Reference Range Interpretation Comments Aerobic culture No growth Specimen isolate (test after 3 days. InformationSp ecimen code = 498) Source: [facility] [id number] 16:51:58 Test Item Value Reference Range Interpretation Comments Fungus smear No fungi Specimen (test code = observed. InformationSpec imen Source: 1443) TissueSpecimen Site: [place] [facility] [id number] 16:51:58 Test Item Value Reference Range Interpretation Comments Gram stain No WBC's or Specimen isolate (test organisms seen. Information Specimen code = 1469) Source: [facility] [id number] 16:51:58 Test Item Value Reference Range Interpretation Comments Aerobic culture No growth Specimen isolate (test after 3 days. InformationSp ecimen code = 498) Source: [facility] [id number] 16:51:58 Test Item Value Reference Range Interpretation Comments Fungus smear No fungi Specimen (test code = observed. InformationSpec imen Source: 1443) TissueSpecime Site: [place] [facility] [id number] 16:51:58 Test Item Value Reference Range Interpretation Comments Gram stain No WBC's or Specimen isolate (test organisms seen. Information Specimen code = 1469) Source: [facility] [id number] 16:51:58 Test Item Value Reference Range Interpretation Comments Aerobic culture No growth Specimen isolate (test after 3 days. InformationSp ecimen code = 498) Source: [facility] [id number] 16:51:58 Test Item Value Reference Range Interpretation Comments Fungus smear No fungi Specimen (test code = observed. InformationSpec imen Source: 1443) TissueSpecimen Site: [facility] [id number] 16:51:58 Test Item Value Reference Range Interpretation Comments Gram stain No WBC's or Specimen isolate (test organisms seen. Information Specimen code = 1469) Source: [facility] Site: [facility] [id number] 16:51:58 Test Item Value Reference Range Interpretation Comments Aerobic culture No growth Specimen isolate (test after 3 days. InformationSp ecimen code = 498) Source: [facility] [place] [facility] [id number] 16:51:58 Test Item Value Reference Range Interpretation Comments Fungus smear No fungi Specimen (test code = observed. InformationSpec imen Source: 1443) [facility] Site: [facility]2021-12-31 16:51:58 Test Item Value Reference Range Interpretation Comments Gram stain No WBC's or Specimen isolate (test organisms seen. Information Specimen code = 1469) Source: [facility] Site: [facility]2021-12-31 16:51:58 Test Item Value Reference Range Interpretation Comments Aerobic culture No growth Specimen isolate (test after 3 days. InformationSp ecimen code = 498) Source: [facility] Site: [facility]2021-12-31 16:51:58 Test Item Value Reference Range Interpretation Comments Fungus smear No fungi Specimen (test code = observed. InformationSpec imen Source: 1443) [facility] Site: [facility]2021-12-31 16:51:58 Test Item Value Reference Range Interpretation Comments Gram stain No WBC's or Specimen isolate (test organisms seen. Information Specimen code = 1469) Source: [facility] Site: [facility]2021-12-31 16:51:58 Test Item Value Reference Range Interpretation Comments Aerobic culture No growth Specimen isolate (test after 3 days. InformationSp ecimen code = 498) Source: [facility] Site: [facility]2021-12-31 16:51:58 Test Item Value Reference Range Interpretation Comments Fungus smear No fungi Specimen (test code = observed. InformationSpec imen Source: 1443) [facility] Site: [facility]2021-12-31 16:51:58 Test Item Value Reference Range Interpretation Comments Gram stain No WBC's or Specimen isolate (test organisms seen. Information Specimen code = 1469) Source: [facility] Site: [facility] [id number] 16:51:58 Test Item Value Reference Range Interpretation Comments Aerobic culture No growth Specimen isolate (test after 3 days. InformationSp ecimen code = 498) Source: [facility] Site: [facility] [id number] 16:51:58 Test Item Value Reference Range Interpretation Comments Fungus smear No fungi Specimen (test code = observed. InformationSpec imen Source: 1443) TissueSpecimen Site: [place] [facility] [id number] 16:51:58 Test Item Value Reference Range Interpretation Comments Gram stain No WBC's or Specimen isolate (test organisms seen. Information Specimen code = 1469) Source: [facility] [id number] 16:51:58 Test Item Value Reference Range Interpretation Comments Aerobic culture No growth Specimen isolate (test after 3 days. InformationSp ecimen code = 498) Source: [facility] Site: [facility] [id number] 16:51:58 Test Item Value Reference Range Interpretation Comments Fungus smear No fungi Specimen (test code = observed. InformationSpec imen Source: 1443) [facility]2021-12-31 16:51:58 Test Item Value Reference Range Interpretation Comments Gram stain No WBC's or Specimen isolate (test organisms seen. Information Specimen code = 1469) Source: [facility] Site: [facility] [id number] 16:51:58 Test Item Value Reference Range Interpretation Comments Aerobic culture No growth Specimen isolate (test after 3 days. InformationSp ecimen code = 498) Source: [facility] Site: [facility]2021-12-31 16:51:58 Test Item Value Reference Range Interpretation Comments Fungus smear No fungi Specimen (test code = observed. InformationSpec imen Source: 1443) TissueSpecime Site: [facility] [id number] 16:51:58 Test Item Value Reference Range Interpretation Comments Gram stain No WBC's or Specimen isolate (test organisms seen. Information Specimen code = 1469) Source: [facility] Site: [facility] [id number] 16:51:58 Test Item Value Reference Range Interpretation Comments Aerobic culture No growth Specimen isolate (test after 3 days. InformationSp ecimen code = 498) Source: [facility] Site: [facility] [id number] 16:51:58 Test Item Value Reference Range Interpretation Comments Fungus smear No fungi Specimen (test code = observed. InformationSpec imen Source: 1443) [facility] [place] [facility] [id number] 16:51:58 Test Item Value Reference Range Interpretation Comments Gram stain No WBC's or Specimen isolate (test organisms seen. Information Specimen code = 1469) Source: [facility] [id number] 16:51:58 Test Item Value Reference Range Interpretation Comments Aerobic culture No growth Specimen isolate (test after 3 days. InformationSp ecimen code = 498) Source: [facility] [place] [facility] [id number] 16:51:58 Test Item Value Reference Range Interpretation Comments Fungus smear No fungi Specimen (test code = observed. InformationSpec imen Source: 1443) [facility] [id number] 16:51:58 Test Item Value Reference Range Interpretation Comments Gram stain No WBC's or Specimen isolate (test organisms seen. Information Specimen code = 1469) Source: [facility] Site: [facility] [id number] 16:51:58 Test Item Value Reference Range Interpretation Comments Aerobic culture No growth Specimen isolate (test after 3 days. InformationSp ecimen code = 498) Source: [facility] Site: [facility] [id number] 16:51:58 Test Item Value Reference Range Interpretation Comments Fungus smear No fungi Specimen (test code = observed. InformationSpec imen Source: 1443) [facility] [id number] 16:51:58 Test Item Value Reference Range Interpretation Comments Gram stain No WBC's or Specimen isolate (test organisms seen. Information Specimen code = 1469) Source: [facility] Site: [facility] [id number] 16:51:58 Test Item Value Reference Range Interpretation Comments Aerobic culture No growth Specimen isolate (test after 3 days. InformationSp ecimen code = 498) Source: [facility] Site: [facility] [id number] 16:51:58 Test Item Value Reference Range Interpretation Comments Fungus smear No fungi Specimen (test code = observed. InformationSpec imen Source: 1443) TissueSpecime Site: [facility] [id number] 17:00:57 Test Item Value Reference Range Interpretation Comments POC glucose (test code 79 mg/dL 65-99 Opera tor Name: [place] = [id number]) AmiDevice ID: [id number] [facility]2021-12-29 17:00:57 Test Item Value Reference Range Interpretation Comments POC glucose (test code 79 mg/dL 65-99 Opera tor Name: [place] = [id number]) AmiDevice ID: [id number] [facility]2021-12-29 17:00:57 Test Item Value Reference Range Interpretation Comments POC glucose (test code 79 mg/dL 65-99 Opera tor Name: [place] = 33847-3) AmiDevice ID: [id number] [facility]2021-12-29 17:00:57 Test Item Value Reference Range Interpretation Comments POC glucose (test code 79 mg/dL 65-99 Opera tor Name: [place] = 26045-2) AmiDevice ID: [id number] [facility]2021-12-29 17:00:57 Test Item Value Reference Range Interpretation Comments POC glucose (test code 79 mg/dL 65-99 Opera tor Name: [place] = 77927-2) AmiDevice ID: [id number] [facility]2021-12-29 17:00:57 Test Item Value Reference Range Interpretation Comments POC glucose (test code 79 mg/dL 65-99 Opera tor Name: [place] = 53352-9) AmiDevice ID: [id number] [facility]2021-12-29 17:00:57 Test Item Value Reference Range Interpretation Comments POC glucose (test code 79 mg/dL 65-99 Opera tor Name: [place] = 01497-0) AmiDevice ID: [id number] [facility]2021-12-29 17:00:57 Test Item Value Reference Range Interpretation Comments POC glucose (test code 79 mg/dL 65-99 Opera tor Name: [place] = 25293-9) AmiDevice ID: [id number] [facility]2021-12-29 17:00:57 Test Item Value Reference Range Interpretation Comments POC glucose (test code 79 mg/dL 65-99 Opera tor Name: [place] = 83862-7) AmiDevice ID: [id number] [facility] [id number] 17:00:57 Test Item Value Reference Range Interpretation Comments POC glucose (test code 79 mg/dL 65-99 Opera tor Name: [place] = 54621-6) AmiDevice ID: [id number] [facility] [id number] 17:00:57 Test Item Value Reference Range Interpretation Comments POC glucose (test code 79 mg/dL 65-99 Opera tor Name: [place] = 85850-8) AmiDevice ID: [id number] [facility] [id number] 17:00:57 Test Item Value Reference Range Interpretation Comments POC glucose (test code 79 mg/dL 65-99 Opera tor Name: [place] = 38384-8) AmiDevice ID: [id number] [facility] [id number] 17:00:57 Test Item Value Reference Range Interpretation Comments POC glucose (test code 79 mg/dL 65-99 Opera tor Name: [place] = 33691-9) AmiDevice ID: [id number] [facility] , [id number] 20:46:00 Test Item Value Reference Range Interpretation Comments test urine, POC (test Negative code = 8325879) Internal QC (test code = 257) QC acceptable [facility] , [id number] 20:46:00 Test Item Value Reference Range Interpretation Comments test urine, POC (test Negative code = 8908850) Internal QC (test code = 257) QC acceptable [facility] , [id number] 20:46:00 Test Item Value Reference Range Interpretation Comments test urine, POC (test Negative code = 1822273) Internal QC (test code = 257) QC acceptable [facility] , [id number] 20:46:00 Test Item Value Reference Range Interpretation Comments test urine, POC (test Negative code = 4031670) Internal QC (test code = 257) QC acceptable [facility] , [id number] 20:46:00 Test Item Value Reference Range Interpretation Comments test urine, POC (test Negative code = 2371011) Internal QC (test code = 257) QC acceptable [facility] , [id number] 20:46:00 Test Item Value Reference Range Interpretation Comments test urine, POC (test Negative code = 6254985) Internal QC (test code = 257) QC acceptable [facility] , [id number] 20:46:00 Test Item Value Reference Range Interpretation Comments test urine, POC (test Negative code = 9003541) Internal QC (test code = 257) QC acceptable [facility] , [id number] 20:46:00 Test Item Value Reference Range Interpretation Comments test urine, POC (test Negative code = 7815736) Internal QC (test code = 257) QC acceptable [facility] , [id number] 20:46:00 Test Item Value Reference Range Interpretation Comments test urine, POC (test Negative code = 2648021) Internal QC (test code = 257) QC acceptable [facility], [id number] 20:46:00 Test Item Value Reference Range Interpretation Comments test urine, POC (test Negative code = 6507490) Internal QC (test code = 257) QC acceptable [facility] , [id number] 20:46:00 Test Item Value Reference Range Interpretation Comments test urine, POC (test Negative code = 9449317) Internal QC (test code = 257) QC acceptable [facility] , [id number] 20:46:00 Test Item Value Reference Range Interpretation Comments test urine, POC (test Negative code = 0841956) Internal QC (test code = 257) QC acceptable [facility] , [id number] 20:46:00 Test Item Value Reference Range Interpretation Comments test urine, POC (test Negative code = 6449079) Internal QC (test code = 257) QC acceptable [address]2021-12-27 17:27:33 Test Item Value Reference Range Interpretation Comments Ventricular rate (test code = 253) Atrial rate (test code = 255) DC interval (test code = 266) QRSD interval [...] of 04-JUN-2021 18:19,-No significant change was found- [address]2021-12-27 17:27:33 Test Item Value Reference Range Interpretation Comments Ventricular rate (test code = 253) Atrial rate (test code = 255) DC interval (test code = 266) QRSD interval [...] of 04-JUN-2021 18:19,-No significant change was found- [address]2021-12-27 17:27:33 Test Item Value Reference Range Interpretation Comments Ventricular rate (test code = 253) Atrial rate (test code = 255) DC interval (test code = 266) QRSD interval [...] of 04-JUN-2021 18:19,-No significant change was found- [address]2021-12-27 17:27:33 Test Item Value Reference Range Interpretation Comments Ventricular rate (test code = 253) Atrial rate (test code = 255) DC interval (test code = 266) QRSD interval [...] of 04-JUN-2021 18:19,-No significant change was found- [address]2021-12-27 17:27:33 Test Item Value Reference Range Interpretation Comments Ventricular rate (test code = 253) Atrial rate (test code = 255) DC interval (test code = 266) QRSD interval [...] of 04-JUN-2021 18:19,-No significant change was found- [address]2021-12-27 17:27:33 Test Item Value Reference Range Interpretation Comments Ventricular rate (test code = 253) Atrial rate (test code = 255) DC interval (test code = 266) QRSD interval [...] of 04-JUN-2021 18:19,-No significant change was found- [address]2021-12-27 17:27:33 Test Item Value Reference Range Interpretation Comments Ventricular rate (test code = 253) Atrial rate (test code = 255) DC interval (test code = 266) QRSD interval [...] of 04-JUN-2021 18:19,-No significant change was found- [address]2021-12-27 17:27:33 Test Item Value Reference Range Interpretation Comments Ventricular rate (test code = 253) Atrial rate (test code = 255) DC interval (test code = 266) QRSD interval [...] of 04-JUN-2021 18:19,-No significant change was found- [address]2021-12-27 17:27:33 Test Item Value Reference Range Interpretation Comments Ventricular rate (test code = 253) Atrial rate (test code = 255) DC interval (test code = 266) QRSD interval [...] of 04-JUN-2021 18:19,-No significant change was found- [address]2021-12-27 17:27:33 Test Item Value Reference Range Interpretation Comments Ventricular rate (test code = 253) Atrial rate (test code = 255) DC interval (test code = 266) QRSD interval [...] of 04-JUN-2021 18:19,-No significant change was found- [address]2021-12-27 17:27:33 Test Item Value Reference Range Interpretation Comments Ventricular rate (test code = 253) Atrial rate (test code = 255) DC interval (test code = 266) QRSD interval [...] of 04-JUN-2021 18:19,-No significant change was found- [address]2021-12-27 17:27:33 Test Item Value Reference Range Interpretation Comments Ventricular rate (test code = 253) Atrial rate (test code = 255) DC interval (test code = 266) QRSD interval [...] of 04-JUN-2021 18:19,-No significant change was found- [address]2021-12-27 17:27:33 Test Item Value Reference Range Interpretation Comments Ventricular rate (test code = 253) Atrial rate (test code = 255) DC interval (test code = 266) QRSD interval [...] of 04-JUN-2021 18:19,-No significant change was found- [facility] and oatmqd2102-64-89 11:06:00 Test Item Value Reference Range Interpretation Comments ABO grouping (test code = 883-9) B Rh type (test code = 60197-4) POS Antibody screen (gel) (test code = NEG 890-4) [facility] [id number] 11:06:00 Test Item Value Reference Range Interpretation Comments ABO grouping (test code = 883-9) B Rh type (test code = 83254-1) POS Antibody screen (gel) (test code = NEG 890-4) [facility] and swoaik1860-46-95 11:06:00 Test Item Value Reference Range Interpretation Comments ABO grouping (test code = 883-9) B Rh type (test code = 23581-7) POS Antibody screen (gel) (test code = NEG 890-4) [facility] jhsnic9110-36-42 11:06:00 Test Item Value Reference Range Interpretation Comments ABO grouping (test code = 883-9) B Rh type (test code = 24858-1) POS Antibody screen (gel) (test code = NEG 890-4) [facility] goapuq7803-42-07 11:06:00 Test Item Value Reference Range Interpretation Comments ABO grouping (test code = 883-9) B Rh type (test code = 63822-0) POS Antibody screen (gel) (test code = NEG 890-4) [facility] ybxewu9800-31-86 11:06:00 Test Item Value Reference Range Interpretation Comments ABO grouping (test code = 883-9) B Rh type (test code = 67510-8) POS Antibody screen (gel) (test code = NEG 890-4) [facility] and bwkfdr6608-42-09 11:06:00 Test Item Value Reference Range Interpretation Comments ABO grouping (test code = 883-9) B Rh type (test code = 79043-3) POS Antibody screen (gel) (test code = NEG 890-4) [facility] agmlzo3533-21-72 11:06:00 Test Item Value Reference Range Interpretation Comments ABO grouping (test code = 883-9) B Rh type (test code = 67192-9) POS Antibody screen (gel) (test code = NEG 890-4) [facility] tjqqgk0819-15-38 11:06:00 Test Item Value Reference Range Interpretation Comments ABO grouping (test code = 883-9) B Rh type (test code = 86757-5) POS Antibody screen (gel) (test code = NEG 890-4) [facility] oosmxz1507-32-51 11:06:00 Test Item Value Reference Range Interpretation Comments ABO grouping (test code = 883-9) B Rh type (test code = 13923-3) POS Antibody screen (gel) (test code = NEG 890-4) [facility] wikesa2839-58-68 11:06:00 Test Item Value Reference Range Interpretation Comments ABO grouping (test code = 883-9) B Rh type (test code = 38255-9) POS Antibody screen (gel) (test code = NEG 890-4) [facility] oocaqo6079-44-45 11:06:00 Test Item Value Reference Range Interpretation Comments ABO grouping (test code = 883-9) B Rh type (test code = 67454-0) POS Antibody screen (gel) (test code = NEG 890-4) [facility] zjqygh5034-23-13 11:06:00 Test Item Value Reference Range Interpretation Comments ABO grouping (test code = 883-9) B Rh type (test code = 16836-7) POS Antibody screen (gel) (test code = NEG 890-4) [facility] [Presence] in Respiratory specimen by EMANUEL with probe ejhucqdpg4174-81-59 19:37:44 Test Item Value Reference Range Interpretation Comments SARS-CoV-2 (COVID-19) RNA Not detected Not-Detected [Presence] in Respiratory specimen by EMANUEL with probe detection (test code = 27288-7) 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 (test code = 27553-0) Whether the patient has symptoms related to condition of interest (test code = 84225-3) Patient was hospitalized because of this condition (test code = 78694-6) Whether the patient was admitted to intensive care unit (ICU) for condition of interest (test code = 42265-3) Whether patient resides in a congregate care setting (test code = 60067-1) [facility]2021-12-24 20:18:46 Test Item Value Reference Range Interpretation Comments Tissue culture No growth Specimen isolate (test after 3 days. InformationSp ecimen code = 27922-2) Source: Tiss ueSpecimen Site: Thigh: in fected right thigh wou [facility]2021-12-24 20:18:46 Test Item Value Reference Range Interpretation Comments Tissue culture No growth Specimen isolate (test after 3 days. InformationSp ecimen code = 91634-7) Source: Tiss ueSpecimen Site: Thigh: in fected right thigh wou [facility]2021-12-24 20:18:46 Test Item Value Reference Range Interpretation Comments Tissue culture No growth Specimen isolate (test after 3 days. InformationSp ecimen code = 10884-1) Source: Tiss ueSpecimen Site: Thigh: in fected right thigh wou [facility]2021-12-24 20:18:46 Test Item Value Reference Range Interpretation Comments Tissue culture No growth Specimen isolate (test after 3 days. InformationSp ecimen code = 08494-4) Source: Tiss ueSpecimen Site: Thigh: in fected right thigh wou [facility]2021-12-24 20:18:46 Test Item Value Reference Range Interpretation Comments Tissue culture No growth Specimen isolate (test after 3 days. InformationSp ecimen code = 55070-5) Source: Tiss ueSpecimen Site: Thigh: in fected right thigh wou [facility]2021-12-24 20:18:46 Test Item Value Reference Range Interpretation Comments Tissue culture No growth Specimen isolate (test after 3 days. InformationSp ecimen code = 62533-6) Source: Tiss ueSpecimen Site: Thigh: [facility]ected [facility] otxbdqd7466-59-43 20:18:46 Test Item Value Reference Range Interpretation Comments Tissue culture No growth Specimen isolate (test after 3 days. InformationSp ecimen code = 09742-9) Source: Tiss ueSpecimen Site: Thigh: in fected [facility] fnjyzrb1433-98-74 20:18:46 Test Item Value Reference Range Interpretation Comments Tissue culture No growth Specimen isolate (test after 3 days. InformationSp ecimen code = 90674-3) Source: Tiss ueSpecimen Site: Thigh: in fected right thigh wou [facility] owkqwdi9038-75-46 20:18:46 Test Item Value Reference Range Interpretation Comments Tissue culture No growth Specimen isolate (test after 3 days. InformationSp ecimen code = 09875-8) Source: Tiss ueSpecimen Site: Thigh: in fected right thigh wou [facility] [id number] 20:18:46 Test Item Value Reference Range Interpretation Comments Tissue culture No growth Specimen isolate (test after 3 days. InformationSp ecimen code = 40186-7) Source: Tiss ueSpecimen Site: Thigh: in fected right thigh wou [facility] oimoqxj4241-76-14 20:18:46 Test Item Value Reference Range Interpretation Comments Tissue culture No growth Specimen isolate (test after 3 days. InformationSp ecimen code = 38567-8) Source: Tiss ueSpecimen Site: Thigh: in fected right [facility]ou [facility] [id number] 20:24:42 Test Item Value Reference Range Interpretation Comments AFB stain No acid fast Specimen (test code = bacilli (AFB) InformationSpe cimen 676-7) seen. Source: Drainag eSpecimen Site: Thigh: in fected wound right [facility] lsocp1461-07-23 20:24:42 Test Item Value Reference Range Interpretation Comments AFB stain No acid fast Specimen (test code = bacilli (AFB) InformationSpe cimen 676-7) seen. Source: Drainag eSpecimen Site: Thigh: in fected wound right [facility] ogpnu3402-20-44 20:24:42 Test Item Value Reference Range Interpretation Comments AFB stain No acid fast Specimen (test code = bacilli (AFB) InformationSpe cimen 676-7) seen. Source: [place] eSpecimen Site: Th[facility]: [facility] slfyo0117-89-18 20:24:42 Test Item Value Reference Range Interpretation Comments AFB stain No acid fast Specimen (test code = bacilli (AFB) InformationSpe cimen 676-7) seen. Source: [place] eSpecimen Site: Thigh: [facility] [id number] 20:24:42 Test Item Value Reference Range Interpretation Comments AFB stain No acid fast Specimen (test code = bacilli (AFB) InformationSpe cimen 676-7) seen. Source: [place] eSpecimen Site: Thigh: [facility] [id number] 20:24:42 Test Item Value Reference Range Interpretation Comments AFB stain No acid fast Specimen (test code = bacilli (AFB) InformationSpe cimen 676-7) seen. Source: Drainag eSpecimen Site: Thigh: [facility] [id number] 20:24:42 Test Item Value Reference Range Interpretation Comments AFB stain No acid fast Specimen (test code = bacilli (AFB) InformationSpe cimen 676-7) seen. Source: [place] eSpecimen Site: Thigh: [facility] [id number] 20:24:42 Test Item Value Reference Range Interpretation Comments AFB stain No acid fast Specimen (test code = bacilli (AFB) InformationSpe cimen 676-7) seen. Source: [place] eSpecimen Site: Thigh: [facility] [id number] 20:24:42 Test Item Value Reference Range Interpretation Comments AFB stain No acid fast Specimen (test code = bacilli (AFB) InformationSpe cimen 676-7) seen. Source: [place] eSpecimen Site: Thigh: [facility] [id number] 20:24:42 Test Item Value Reference Range Interpretation Comments AFB stain No acid fast Specimen (test code = bacilli (AFB) InformationSpe cimen 676-7) seen. Source: [place] eSpecimen Site: Thigh: [facility] ilcnq1394-95-17 20:24:42 Test Item Value Reference Range Interpretation Comments AFB stain No acid fast Specimen (test code = bacilli (AFB) InformationSpe cimen 676-7) seen. Source: Drainag eSpecimen Site: Thigh: in fected wound right [facility] imebgvo8708-70-84 09:49:57 Test Item Value Reference Range Interpretation Comments Urine culture No growth Specimen isolate (test after 24 InformationSpe cimen code = 48185-3) hours [facility]2021-12-20 09:49:57 Test Item Value Reference Range Interpretation Comments Urine culture No growth Specimen isolate (test after 24 InformationSpe cimen code = 93295-2) hours Source: Urin eSpecimen Site: [facility]2021-12-20 09:49:57 Test Item Value Reference Range Interpretation Comments Urine culture No growth Specimen isolate (test after 24 InformationSpe cimen code = 80956-2) hours Source: Urin eSpecimen Site: [facility]2021-12-20 09:49:57 Test Item Value Reference Range Interpretation Comments Urine culture No growth Specimen isolate (test after 24 InformationSpe cimen code = 44229-9) hours Source: Urin eSpecimen Site: [facility]2021-12-20 09:49:57 Test Item Value Reference Range Interpretation Comments Urine culture No growth Specimen isolate (test after 24 InformationSpe cimen code = 45470-8) hours Source: [facility] eSpecime Site: [facility]2021-12-20 09:49:57 Test Item Value Reference Range Interpretation Comments Urine culture No growth Specimen isolate (test after 24 InformationSpe cimen code = 23691-3) hours Source: Urma eSpecime Site: [facility]2021-12-20 09:49:57 Test Item Value Reference Range Interpretation Comments Urine culture No growth Specimen isolate (test after 24 InformationSpe cimen code = 69212-7) hours Source: [facility] Site: [facility] [id number] 09:49:57 Test Item Value Reference Range Interpretation Comments Urine culture No growth Specimen isolate (test after 24 InformationSpe cimen code = 04315-6) hours Source: [facility] Site: [facility] galjweh5466-42-20 09:49:57 Test Item Value Reference Range Interpretation Comments Urine culture No growth Specimen isolate (test after 24 InformationSpe cimen code = 76850-2) hours Source: [facility] Site: [facility] [id number] 09:49:57 Test Item Value Reference Range Interpretation Comments Urine culture No growth Specimen isolate (test after 24 InformationSpe cimen code = 63855-1) hours Source: [facility] Site: [facility] [id number] 09:49:57 Test Item Value Reference Range Interpretation Comments Urine culture No growth Specimen isolate (test after 24 InformationSpe cimen code = 22717-2) hours Source: [facility] Site: [facility] and tecbhikzhjpu3668-72-45 12:52:00 Test Item Value Reference Range Interpretation Comments ABO grouping (test code = 883-9) B Rh type (test code = 71370-0) [facility] otvubmowlnab2136-68-52 12:52:00 Test Item Value Reference Range Interpretation Comments ABO grouping (test code = 883-9) B Rh type (test code = 83849-6) [facility] Rh cvkwuiynnrov7346-81-24 12:52:00 Test Item Value Reference Range Interpretation Comments ABO grouping (test code = 883-9) B Rh type (test code = 69124-7) [facility] Rh uxhksdaciuao2192-21-15 12:52:00 Test Item Value Reference Range Interpretation Comments ABO grouping (test code = 883-9) B Rh type (test code = 42795-0) POS [facility] Rh masogevdjsji4334-75-57 12:52:00 Test Item Value Reference Range Interpretation Comments ABO grouping (test code = 883-9) B Rh type (test code = 60398-4) POS [facility] khpdtyelnyvn5493-02-77 12:52:00 Test Item Value Reference Range Interpretation Comments ABO grouping (test code = 883-9) B Rh type (test code = 79318-8) POS [facility] mhsbqdbnzuwm7346-76-97 12:52:00 Test Item Value Reference Range Interpretation Comments ABO grouping (test code = 883-9) B Rh type (test code = 50195-1) POS [facility] and Rh bsoiitcafelo7238-74-66 12:52:00 Test Item Value Reference Range Interpretation Comments ABO grouping (test code = 883-9) B Rh type (test code = 69775-3) [facility] and Rh vzvdbkfkawqm8710-75-83 12:52:00 Test Item Value Reference Range Interpretation Comments ABO grouping (test code = 883-9) B Rh type (test code = 74704-9) [facility] and Rh jwplklnlpabm1840-66-54 12:52:00 Test Item Value Reference Range Interpretation Comments ABO grouping (test code = 883-9) B Rh type (test code = 99858-2) POS [facility] and Rh pltehpaossof2875-05-21 12:52:00 Test Item Value Reference Range Interpretation Comments ABO grouping (test code = 883-9) B Rh type (test code = 12628-7) [facility] RNA [Presence] in Respiratory specimen by EMANUEL with probe ghmhvqvxh2822-28-38 03:04:32 Test Item Value Reference Range Interpretation Comments SARS-CoV-2 (COVID-19) RNA Not detected Not-Detected [Presence] in Respiratory specimen by EMANUEL with probe detection (test code = 56147-0) 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 (test code = 93407-8) Whether the patient has symptoms related to condition of interest (test code = 59356-5) Patient was hospitalized because of this condition (test code = 28243-7) Whether the patient was admitted to intensive care unit (ICU) for condition of interest (test code = 94904-7) Whether patient resides in a congregate care setting (test code = 92347-9) [facility], 1 [id number] 22:22:00 Test Item Value Reference Range Interpretation Comments Product name (test code Red Blood Cells -1, = 25) Leukored Unit number (test code = [id number]) Product code (test code H9219X62 = 3092) Dispense status (test Transfused code = 24) Blood expiration date (test code = 302) Blood type code (test code = 308) Blood type (test code = B POSITIVE 1314) Compatibility (test code Compatible = 6400) [facility], 1 Ckxdk3645-72-15 22:22:00 Test Item Value Reference Range Interpretation Comments Product name (test code Red Blood Cells -1, = 25) Leukored Unit number (test code = [id number]) Product code (test code O3460F16 = 3092) Dispense status (test Transfused code = 24) Blood expiration date (test code = 302) Blood type code (test code = 308) Blood type (test code = B POSITIVE 1314) Compatibility (test code Compatible = 6400) [facility], 1 [id number] 22:22:00 Test Item Value Reference Range Interpretation Comments Product name (test code Red Blood Cells -1, = 25) Leukored Unit number (test code = [id number]) Product code (test code Z3133Y04 = 3092) Dispense status (test Transfused code = 24) Blood expiration date (test code = 302) Blood type code (test code = 308) Blood type (test code = B POSITIVE 1314) Compatibility (test code Compatible = 6400) [facility], 1 Jcfwg1390-73-31 22:22:00 Test Item Value Reference Range Interpretation Comments Product name (test code Red Blood Cells -1, = 25) Leukored Unit number (test code = [id number]) Product code (test code T5273E21 = 3092) Dispense status (test Transfused code = 24) Blood expiration date (test code = 302) Blood type code (test code = 308) Blood type (test code = B POSITIVE 1314) Compatibility (test code Compatible = 6400) [facility], 1 Wdhql6949-31-70 22:22:00 Test Item Value Reference Range Interpretation Comments Product name (test code Red Blood Cells -1, = 25) Leukored Unit number (test code = [id number]) Product code (test code O3819H61 = 3092) Dispense status (test Transfused code = 24) Blood expiration date (test code = 302) Blood type code (test code = 308) Blood type (test code = B POSITIVE 1314) Compatibility (test code Compatible = 6400) [facility], 1 Rvofo8381-48-36 22:22:00 Test Item Value Reference Range Interpretation Comments Product name (test code Red Blood Cells -1, = 25) Leukored Unit number (test code = [id number]) Product code (test code G4684C93 = 3092) Dispense status (test Transfused code = 24) Blood expiration date (test code = 302) Blood type code (test code = 308) Blood type (test code = B POSITIVE 1314) Compatibility (test code Compatible = 6400) [facility], 1 Xjlsw1897-95-09 22:22:00 Test Item Value Reference Range Interpretation Comments Product name (test code Red Blood Cells -1, = 25) Leukored Unit number (test code = [id number]) Product code (test code A4839A41 = 3092) Dispense status (test Transfused code = 24) Blood expiration date (test code = 302) Blood type code (test code = 308) Blood type (test code = B POSITIVE 1314) Compatibility (test code Compatible = 6400) [facility], 1 Owkyk6289-85-04 22:22:00 Test Item Value Reference Range Interpretation Comments Product name (test code Red Blood Cells -1, = 25) Leukored Unit number (test code = [id number]) Product code (test code Q7927H32 = 3092) Dispense status (test Transfused code = 24) Blood expiration date (test code = 302) Blood type code (test code = 308) Blood type (test code = B POSITIVE 1314) Compatibility (test code Compatible = 6400) [facility], 1 Kjsxr4160-00-36 22:22:00 Test Item Value Reference Range Interpretation Comments Product name (test code Red Blood Cells -1, = 25) Leukored Unit number (test code = [id number]) Product code (test code S5375S72 = 3092) Dispense status (test Transfused code = 24) Blood expiration date (test code = 302) Blood type code (test code = 308) Blood type (test code = B POSITIVE 1314) Compatibility (test code Compatible = 6400) [facility] RBC, 1 [id number] 22:22:00 Test Item Value Reference Range Interpretation Comments Product name (test code Red Blood Cells -1, = 25) Leukored Unit number (test code = [id number]) Product code (test code G2251K65 = 3092) Dispense status (test Transfused code = 24) Blood expiration date (test code = 302) Blood type code (test code = 308) Blood type (test code = B POSITIVE 1314) Compatibility (test code Compatible = 6400) [facility] pathology efytzep7490-72-52 20:10:46 Test Item Value Reference Range Interpretation Comments Case number (test code = [id number]) Surgical pathology See link below for report (test code = PDF Lab Report 2255) Result status (test code This is Final Report = [id number]) for [address] pathology [id number] 20:10:46 Test Item Value Reference Range Interpretation Comments Case number (test code = [id number]) Surgical pathology See link below for report (test code = PDF Lab Report 2255) Result status (test code This is Final Report = [id number]) for [address] pathology bezeaoh2329-13-22 20:10:46 Test Item Value Reference Range Interpretation Comments Case number (test code = [id number]) Surgical pathology See link below for report (test code = PDF Lab Report 2255) Result status (test code This is Final Report = [id number]) for [id number] pathology [id number] 20:10:46 Test Item Value Reference Range Interpretation Comments Case number (test code = [id number]) Surgical pathology See link below for report (test code = PDF Lab Report 2255) Result status (test code This is Final Report = [id number]) for [address] pathology [id number] 20:10:46 Test Item Value Reference Range Interpretation Comments Case number (test code = [id number]) Surgical pathology See link below for report (test code = PDF Lab Report 2255) Result status (test code This is Final Report = [id number]) for [address] pathology [id number] 20:10:46 Test Item Value Reference Range Interpretation Comments Case number (test code = [id number]) Surgical pathology See link below for report (test code = PDF Lab Report 2255) Result status (test code This is Final Report = [id number]) for [address] pathology [id number] 20:10:46 Test Item Value Reference Range Interpretation Comments Case number (test code = [id number]) Surgical pathology See link below for report (test code = PDF Lab Report 2255) Result status (test code This is Final Report = [id number]) for [address] pathology vxqmbos7504-49-97 20:10:46 Test Item Value Reference Range Interpretation Comments Case number (test code = [id number]) Surgical pathology See link below for report (test code = PDF Lab Report 2255) Result status (test code This is Final Report = [id number]) for [address] pathology svveqtp3531-25-46 20:10:46 Test Item Value Reference Range Interpretation Comments Case number (test code = [id number]) Surgical pathology See link below for report (test code = PDF Lab Report 2255) Result status (test code This is Final Report = [id number]) for [address] pathology [id number] 20:10:46 Test Item Value Reference Range Interpretation Comments Case number (test code = [id number]) Surgical pathology See link below for report (test code = PDF Lab Report 2255) Result status (test code This is Final Report = [id number]) [id number] [facility] Sthip7348-47-62 15:35:00 Test Item Value Reference Range Interpretation Comments Product name (test code Bogdan tApgina LR, Path = 25) Red cont3 Unit number (test code = [id number]) Product code (test code E9963K05 = 3092) Dispense status (test Transfused code = 24) Blood expiration date (test code = 302) Blood type code (test code = 308) Blood type (test code = O POSITIVE 1314) Compatibility (test code Not required = 6400) [facility] Wbyrj5822-06-58 15:35:00 Test Item Value Reference Range Interpretation Comments Product name (test code Bogdan Fraire LR, Path = 25) Red cont3 Unit number (test code = [id number]) Product code (test code T1624A60 = 3092) Dispense status (test Transfused code = 24) Blood expiration date (test code = 302) Blood type code (test code = 308) Blood type (test code = O POSITIVE 1314) Compatibility (test code Not required = 6400) [facility] [id number] 15:35:00 Test Item Value Reference Range Interpretation Comments Product name (test code Bogdan Fraire LR, Path = 25) Red cont3 Unit number (test code = [id number] 4166476) Product code (test code S0801E49 = 3092) Dispense status (test Transfused code = 24) Blood expiration date (test code = 302) Blood type code (test code = 308) Blood type (test code = O POSITIVE 1314) Compatibility (test code Not required = 6400) [facility] [id number] 15:35:00 Test Item Value Reference Range Interpretation Comments Product name (test code Platerick Fraire LR, Path = 25) Red cont3 Unit number (test code = [id number] 1884492) Product code (test code M3587V55 = 3092) Dispense status (test Transfused code = 24) Blood expiration date (test code = 302) Blood type code (test code = 308) Blood type (test code = O POSITIVE 1314) Compatibility (test code Not required = 6400) [facility] [id number] 15:35:00 Test Item Value Reference Range Interpretation Comments Product name (test code Bogdan Fraire LR, Path = 25) Red cont3 Unit number (test code = [id number] 1887029) Product code (test code U9811H66 = 3092) Dispense status (test Transfused code = 24) Blood expiration date (test code = 302) Blood type code (test code = 308) Blood type (test code = O POSITIVE 1314) Compatibility (test code Not required = 6400) [facility] Opaum1145-16-08 15:35:00 Test Item Value Reference Range Interpretation Comments Product name (test code Bogdan Fraire LR, Path = 25) Red cont3 Unit number (test code = [id number] 0049628) Product code (test code Q1492H20 = 3092) Dispense status (test Transfused code = 24) Blood expiration date (test code = 302) Blood type code (test code = 308) Blood type (test code = O POSITIVE 1314) Compatibility (test code Not required = 6400) [facility] 1 [id number] 15:35:00 Test Item Value Reference Range Interpretation Comments Product name (test code Bogdan Fraire LR, Path = 25) Red cont3 Unit number (test code = [id number] 5975418) Product code (test code P9191C57 = 3092) Dispense status (test Transfused code = 24) Blood expiration date (test code = 302) Blood type code (test code = 308) Blood type (test code = O POSITIVE 1314) Compatibility (test code Not required = 6400) [facility] 1 Okrfy7455-76-67 15:35:00 Test Item Value Reference Range Interpretation Comments Product name (test code Platerick Fraire LR, Path = 25) Red cont3 Unit number (test code = [id number] 0261900) Product code (test code I2302J82 = 3092) Dispense status (test Transfused code = 24) Blood expiration date (test code = 302) Blood type code (test code = 308) Blood type (test code = O POSITIVE 1314) Compatibility (test code Not required = 6400) [facility] Estzf0718-58-31 15:35:00 Test Item Value Reference Range Interpretation Comments Product name (test code Bogdan Henley ZULEYKA, Path = 25) Red cont3 Unit number (test code = [id number] 0947872) Product code (test code K2602U76 = 3092) Dispense status (test Transfused code = 24) Blood expiration date (test code = 302) Blood type code (test code = 308) Blood type (test code = O POSITIVE 1314) Compatibility (test code Not required = 6400) [facility] Fcpda8789-37-54 15:35:00 Test Item Value Reference Range Interpretation Comments Product name (test code Bogdan Henley ZULEYKA, Path = 25) Red cont3 Unit number (test code = [id number] 1820997) Product code (test code G9730K13 = 3092) Dispense status (test Transfused code = 24) Blood expiration date (test code = 302) Blood type code (test code = 308) Blood type (test code = O POSITIVE 1314) Compatibility (test code Not required = 6400) [facility] kywu6267-69-61 12:13:24 Test Item Value Reference Range Interpretation Comments Activated clotting time See_Comment H Oper ator Name: (test code = 5298) Bryn Denny eneaDevice ID: [id number] [Automated mess age] The system [employer] h generated this result transmitted ref erence range: 96 - 152 sec. The reference r leo was not used to interpret this result as normal/abnor mal. Lab Interpretation (test Abnormal code = 06008-8) [facility] tsow4640-16-67 12:13:24 Test Item Value Reference Range Interpretation Comments Activated clotting time See_Comment H Oper ator Name: (test code = 5298) Bryn R eneaDevice ID: [id number] [Automated mess age] The system [employer] generated this result transmitted ref erence range: 96 - 152 sec. The reference r loe was not used to interpret this result as normal/abnor mal. Lab Interpretation (test Abnormal code = 26894-7) [facility] fklr8159-82-99 12:13:24 Test Item Value Reference Range Interpretation Comments Activated clotting time See_Comment H Oper ator Name: (test code = 5298) Bryn Sj thorntoneaDevice ID: [id number] [Automated mess age] The system [employer] h generated this result transmitted ref erence range: 96 - 152 sec. The reference r leo was not used to interpret this result as normal/abnor mal. Lab Interpretation (test Abnormal code = 21891-7) [facility] [id number] 12:13:24 Test Item Value Reference Range Interpretation Comments Activated clotting time See_Comment H Oper ator Name: (test code = 5298) Bryn Sj eneaDevice ID: [id number] [Automated mess age] The system [employer] generated this result transmitted ref erence range: 96 - 152 sec. The reference r loe was not used to interpret this result as normal/abnor mal. Lab Interpretation (test Abnormal code = 68620-6) [facility] oxxs9722-95-20 12:13:24 Test Item Value Reference Range Interpretation Comments Activated clotting time See_Comment H Oper ator Name: (test code = 5298) Bryn Sj thorntoneaDevice ID: [id number] [Automated mess age] The system [employer] generated this result transmitted ref erence range: 96 - 152 sec. The reference r leo was not used to interpret this result as normal/abnor mal. Lab Interpretation (test Abnormal code = 62370-3) [facility] vxts6870-63-95 12:13:24 Test Item Value Reference Range Interpretation Comments Activated clotting time See_Comment H Oper ator Name: (test code = 5298) Bryn Sj eneaDevice ID: [id number] [Automated mess age] The system [employer] generated this result transmitted ref erence range: 96 - 152 sec. The reference r leo was not used to interpret this result as normal/abnor mal. Lab Interpretation (test Abnormal code = 59633-0) [facility] azsr6342-41-02 12:13:24 Test Item Value Reference Range Interpretation Comments Activated clotting time See_Comment H Oper ator Name: (test code = 5298) Bryn Denny eneaDevice ID: [id number] [Automated mess age] The system ID90T generated this result transmitted ref erence range: 96 - 152 sec. The reference r leo was not used to interpret this result as normal/abnor mal. Lab Interpretation (test Abnormal code = 03230-5) [facility] arli5256-36-83 12:13:24 Test Item Value Reference Range Interpretation Comments Activated clotting time See_Comment H Oper ator Name: (test code = 5298) Bryn Denny eneaDevice ID: [id number] [Automated mess age] The system ID90T generated this result transmitted ref erence range: 96 - 152 sec. The reference r leo was not used to interpret this result as normal/abnor mal. Lab Interpretation (test Abnormal code = 57071-8) [facility] clotting yksq1015-07-97 12:13:24 Test Item Value Reference Range Interpretation Comments Activated clotting time See_Comment H Oper ator Name: (test code = 5298) Bryn Denny eneaDevice ID: [id number] [Automated mess age] The system ID90T generated this result transmitted ref erence range: 96 - 152 sec. The reference r leo was not used to interpret this result as normal/abnor mal. Lab Interpretation (test Abnormal code = 72515-8) [facility] clotting [id number] 12:13:24 Test Item Value Reference Range Interpretation Comments Activated clotting time See_Comment H Oper ator Name: (test code = 5298) Bryn Denny eneaDevice ID: [id number] [Automated mess age] The system ID90T generated this result transmitted ref erence range: 96 - 152 sec. The reference r leo was not used to interpret this result as normal/abnor mal. Lab Interpretation (test Abnormal code = 35374-5) [facility] pglim8341-35-54 14:37:48 Test Item Value Reference Range Interpretation Comments POC sodium (test code = 138 mmol/L 087-813 6887-0) POC potassium (test 5.5 mmol/L 3.5-5 H code = 6298-4) POC glucose (test code 295 mg/dL 65-99 H = 2339-0) POC creatinine (test 5.3 mg/dl 0.5-0.9 H Operato r Name: Pugne code = 17206-0) AileenDevice ID: [id number] POC hemoglobin (test 18.4 g/dL 12-16 H code = 718-7) POC hematocrit (test 54 % 37-47 H code = 4544-3) Lab Interpretation Abnormal (test code = 70106-3) [facility]2021-11-29 14:37:48 Test Item Value Reference Range Interpretation Comments POC sodium (test code = 138 mmol/L 305-882 0490-0) POC potassium (test 5.5 mmol/L 3.5-5 H code = 6298-4) POC glucose (test code 295 mg/dL 65-99 H = 2339-0) POC creatinine (test 5.3 mg/dl 0.5-0.9 H Operato r Name: Pugne code = 42495-0) AileenDevice ID: [id number] POC hemoglobin (test 18.4 g/dL 12-16 H code = 718-7) POC hematocrit (test 54 % 37-47 H code = 4544-3) Lab Interpretation Abnormal (test code = 98699-2) [facility]2021-11-29 14:37:48 Test Item Value Reference Range Interpretation Comments POC sodium (test code = 138 mmol/L 386-684 1625-0) POC potassium (test 5.5 mmol/L 3.5-5 H code = 6298-4) POC glucose (test code 295 mg/dL 65-99 H = 2339-0) POC creatinine (test 5.3 mg/dl 0.5-0.9 H Operato r Name: Pugne code = 12855-7) AileenDevice ID: [id number] POC hemoglobin (test 18.4 g/dL 12-16 H code = 718-7) POC hematocrit (test 54 % 37-47 H code = 4544-3) Lab Interpretation Abnormal (test code = 86368-5) [facility]2021-11-29 14:37:48 Test Item Value Reference Range Interpretation Comments POC sodium (test code = 138 mmol/L 286-005 1047-0) POC potassium (test 5.5 mmol/L 3.5-5 H code = 6298-4) POC glucose (test code 295 mg/dL 65-99 H = 2339-0) POC creatinine (test 5.3 mg/dl 0.5-0.9 H Operato r Name: Johannae code = 09569-0) AiljoshDevice ID: [id number] POC hemoglobin (test 18.4 g/dL 12-16 H code = 718-7) POC hematocrit (test 54 % 37-47 H code = 4544-3) Lab Interpretation Abnormal (test code = 79430-1) [facility]2021-11-29 14:37:48 Test Item Value Reference Range Interpretation Comments POC sodium (test code = 138 mmol/L 156-945 0459-0) POC potassium (test 5.5 mmol/L 3.5-5 H code = 6298-4) POC glucose (test code 295 mg/dL 65-99 H = 2339-0) POC creatinine (test 5.3 mg/dl 0.5-0.9 H Operato r Name: Johannae code = 42583-1) AiljoshDevice ID: [id number] POC hemoglobin (test 18.4 g/dL 12-16 H code = 718-7) POC hematocrit (test 54 % 37-47 H code = 4544-3) Lab Interpretation Abnormal (test code = 91674-9) [facility]2021-11-29 14:37:48 Test Item Value Reference Range Interpretation Comments POC sodium (test code = 138 mmol/L 991-959 6142-0) POC potassium (test 5.5 mmol/L 3.5-5.0 H code = 6298-4) POC glucose (test code 295 mg/dL 65-99 H = 2339-0) POC creatinine (test 5.3 mg/dl 0.5-0.9 H Operato r Name: Johannae code = 41766-7) AileenDevice ID: [id number] POC hemoglobin (test 18.4 g/dL 12.0-16.0 H code = 718-7) POC hematocrit (test 54 % 37-47 H code = 4544-3) Lab Interpretation Abnormal (test code = 35473-9) [facility]2021-11-29 14:37:48 Test Item Value Reference Range Interpretation Comments POC sodium (test code = 138 mmol/L 993-529 7872-0) POC potassium (test 5.5 mmol/L 3.5-5.0 H code = 6298-4) POC glucose (test code 295 mg/dL 65-99 H = 2339-0) POC creatinine (test 5.3 mg/dl 0.5-0.9 H Operato r Name: Pugne code = 70868-3) AilBharat ID: [id number] POC hemoglobin (test 18.4 g/dL 12.0-16.0 H code = 718-7) POC hematocrit (test 54 % 37-47 H code = 4544-3) Lab Interpretation Abnormal (test code = 43185-0) [facility]2021-11-29 14:37:48 Test Item Value Reference Range Interpretation Comments POC sodium (test code = 138 mmol/L 090-016 0392-0) POC potassium (test 5.5 mmol/L 3.5-5 H code = 6298-4) POC glucose (test code 295 mg/dL 65-99 H = 2339-0) POC creatinine (test 5.3 mg/dl 0.5-0.9 H Operato r Name: Pugne code = 02753-6) AilBharat ID: [id number] POC hemoglobin (test 18.4 g/dL 12-16 H code = 718-7) POC hematocrit (test 54 % 37-47 H code = 4544-3) Lab Interpretation Abnormal (test code = 19111-4) [facility]2021-11-29 14:37:48 Test Item Value Reference Range Interpretation Comments POC sodium (test code = 138 mmol/L 368-146 9520-0) POC potassium (test 5.5 mmol/L 3.5-5 H code = 6298-4) POC glucose (test code 295 mg/dL 65-99 H = 2339-0) POC creatinine (test 5.3 mg/dl 0.5-0.9 H Operato r Name: Pugne code = 33473-7) AilWinstone ID: [id number] POC hemoglobin (test 18.4 g/dL 12-16 H code = 718-7) POC hematocrit (test 54 % 37-47 H code = 4544-3) Lab Interpretation Abnormal (test code = 96334-2) [facility] kkmce0547-90-85 14:37:48 Test Item Value Reference Range Interpretation Comments POC sodium (test code = 138 mmol/L 104-379 8043-0) POC potassium (test 5.5 mmol/L 3.5-5 H code = 6298-4) POC glucose (test code 295 mg/dL 65-99 H = 2339-0) POC creatinine (test 5.3 mg/dl 0.5-0.9 H Operato r Name: Pat code = 36726-1) Viridiana ID: [id number] POC hemoglobin (test 18.4 g/dL 12-16 H code = 718-7) POC hematocrit (test 54 % 37-47 H code = 4544-3) Lab Interpretation Abnormal (test code = 13377-1) [facility] [Presence] in Respiratory specimen by EMANUEL with probe ojazxzxuk1002-03-77 07:53:49 Test Item Value Reference Range Interpretation Comments SARS-CoV-2 (COVID-19) RNA Not detected Not-Detected [Presence] in Respiratory specimen by EMANUEL with probe detection (test code = 40182-4) 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 (test 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 = 20036-4) Whether the patient has symptoms related to condition of interest (test code = 65932-1) Patient was hospitalized because of this condition (test code = 41217-4) Whether the patient was admitted to intensive care unit (ICU) for condition of interest (test code = 59128-2) Whether patient resides in a congregate care setting (test code = 36337-7) [facility] YJTAK5241-03-24 08:17:00 Test Item Value Reference Range Interpretation Comments Glucose Lvl (test code = Glucose Lvl) 94 70-99 [facility]2021-08-11 08:17:00 Test Item Value Reference Range Interpretation Comments BUN (test code = BUN) 27 7-22 [facility]2021-08-11 08:17:00 Test Item Value Reference Range Interpretation Comments Creatinine Lvl (test code = Creatinine 4.95 0.50-1.40 Lvl) [place] 322431-08-11 08:17:00 Test Item Value Reference Range Interpretation Comments Sodium Lvl (test code = Sodium Lvl) 136 135-145 [place] 322431-08-11 08:17:00 Test Item Value Reference Range Interpretation Comments Potassium Lvl (test code = Potassium 3.9 3.5-5.1 Lvl) [place] 322431-08-11 08:17:00 Test Item Value Reference Range Interpretation Comments Chloride Lvl (test code = Chloride Lvl) 103 95-109 [place] 322431-08-11 08:17:00 Test Item Value Reference Range Interpretation Comments CO2 (test code = CO2) 30 24-32 [place] 322431-08-11 08:17:00 Test Item Value Reference Range Interpretation Comments AGAP (test code = AGAP) 6.9 10.0-20.0 [place] 322431-08-11 08:17:00 Test Item Value Reference Range Interpretation Comments Calcium Lvl (test code = Calcium Lvl) 8.5 8.5-10.5 [place] 322431-08-11 08:17:00 Test Item Value Reference Range Interpretation Comments eGFR (test code = eGFR) 10 [place] 322431-08-11 08:17:00 Test Item Value Reference Range Interpretation Comments Phosphorus (test code = Phosphorus) 3.0 2.5-4.5 [place] 322431-08-11 08:17:00 Test Item Value Reference Range Interpretation Comments Magnesium Lvl (test code = Magnesium 2.4 1.8-2.4 Lvl) [place] 088951-08-11 08:17:00 Test Item Value Reference Range Interpretation Comments WBC (test code = WBC) 2.3 3.7-10.4 [place] [address]-08-11 08:17:00 Test Item Value Reference Range Interpretation Comments RBC (test code = RBC) 2.65 4.20-5.40 [place] 088951-08-11 08:17:00 Test Item Value Reference Range Interpretation Comments Hgb (test code = Hgb) 7.9 12.0-16.0 [place] [address]-08-11 08:17:00 Test Item Value Reference Range Interpretation Comments Hct (test code = Hct) 24.0 36.0-48.0 [facility]689[facility] 08:17:00 Test Item Value Reference Range Interpretation Comments MCV (test code = MCV) 90.6 80.0-98.0 [place] 088951-08-11 08:17:00 Test Item Value Reference Range Interpretation Comments MCH (test code = MCH) 29.7 pg 27.0-31.0 [place] 088951-08-11 08:17:00 Test Item Value Reference Range Interpretation Comments MCHC (test code = MCHC) 32.7 32.0-36.0 [place] 088951-08-11 08:17:00 Test Item Value Reference Range Interpretation Comments RDW (test code = RDW) 19.1 11.5-14.5 [place] 088951-08-11 08:17:00 Test Item Value Reference Range Interpretation Comments Platelet (test code = Platelet) 71 133-450 [facility]PxsxsczJVOFSKEXDJ1804-70-37 08:17:00 Test Item Value Reference Range Interpretation Comments MPV (test code = MPV) 9.9 7.4-10.4 [facility]JnpmsncANNDOUAWNA8079-92-27 08:17:00 Test Item Value Reference Range Interpretation Comments Segs (test code = Segs) 56.1 45.0-75.0 [facility] HospitalFjyjpqkITZKIIXAHQ5894-44-67 08:17:00 Test Item Value Reference Range Interpretation Comments Lymphocytes (test code = Lymphocytes) 28.9 20.0-40.0 [place] 088951-08-11 08:17:00 Test Item Value Reference Range Interpretation Comments Monocytes (test code = Monocytes) 8.1 2.0-12.0 [place] 088951-08-11 08:17:00 Test Item Value Reference Range Interpretation Comments Eosinophils (test code = 5.9 See_Comment [A utomated message] The Eosinophils) system which ge nerated this result tra nsmitted reference range : <=4.0. The reference r leo was not used to int erpret this result as normal/abnormal . [facility] HospitalDrdcbcqUAZEFVYNVA5284-48-84 08:17:00 Test Item Value Reference Range Interpretation Comments Basophils (test code = 1.0 See_Comment [Aut omated message] The Basophils) system which ge nerated this result tra nsmitted reference range : <=1.0. The reference r leo was not used to int erpret this result as normal/abnormal . [place] 088951-08-11 08:17:00 Test Item Value Reference Range Interpretation Comments Neutrophils # (test code = Neutrophils 1.3 1.5-8.1 #) [place] 088951-08-11 08:17:00 Test Item Value Reference Range Interpretation Comments Lymphocytes # (test code = Lymphocytes 0.7 1.0-5.5 #) [place] [address]-08-11 08:17:00 Test Item Value Reference Range Interpretation Comments Monocytes # (test code 0.2 See_Comment [Aut omated message] The = Monocytes #) system which generated this result tra nsmitted reference range : <=0.8. The reference r leo was not used to int erpret this result as normal/abnormal . [place] 088951-08-11 08:17:00 Test Item Value Reference Range Interpretation Comments Eosinophils # (test code 0.1 See_Comment [A utomated message] The = Eosinophils #) system whic h generated this result tra nsmitted reference range : <=0.5. The reference r leo was not used to int erpret this result as normal/abnormal . [place] 322431-08-11 08:17:00 Test Item Value Reference Range Interpretation Comments Glucose Lvl (test code = Glucose Lvl) 94 70-99 [place] 322431-08-11 08:17:00 Test Item Value Reference Range Interpretation Comments BUN (test code = BUN) 27 7-22 [place] 322431-08-11 08:17:00 Test Item Value Reference Range Interpretation Comments Creatinine Lvl (test code = Creatinine 4.95 0.50-1.40 Lvl) [place] 322431-08-11 08:17:00 Test Item Value Reference Range Interpretation Comments Sodium Lvl (test code = Sodium Lvl) 136 135-145 [place] 322431-08-11 08:17:00 Test Item Value Reference Range Interpretation Comments Potassium Lvl (test code = Potassium 3.9 3.5-5.1 Lvl) [place] 322431-08-11 08:17:00 Test Item Value Reference Range Interpretation Comments Chloride Lvl (test code = Chloride Lvl) 103 95-109 [place] 322431-08-11 08:17:00 Test Item Value Reference Range Interpretation Comments CO2 (test code = CO2) 30 24-32 [place] [address]-08-11 08:17:00 Test Item Value Reference Range Interpretation Comments AGAP (test code = AGAP) 6.9 10.0-20.0 [place] 322431-08-11 08:17:00 Test Item Value Reference Range Interpretation Comments Calcium Lvl (test code = Calcium Lvl) 8.5 8.5-10.5 [place] 322431-08-11 08:17:00 Test Item Value Reference Range Interpretation Comments eGFR (test code = eGFR) 10 [place] 322431-08-11 08:17:00 Test Item Value Reference Range Interpretation Comments Phosphorus (test code = Phosphorus) 3.0 2.5-4.5 [place] 322431-08-11 08:17:00 Test Item Value Reference Range Interpretation Comments Magnesium Lvl (test code = Magnesium 2.4 1.8-2.4 Lvl) [place] 088951-08-11 08:17:00 Test Item Value Reference Range Interpretation Comments WBC (test code = WBC) 2.3 3.7-10.4 [place] 088951-08-11 08:17:00 Test Item Value Reference Range Interpretation Comments RBC (test code = RBC) 2.65 4.20-5.40 [place] 088951-08-11 08:17:00 Test Item Value Reference Range Interpretation Comments Hgb (test code = Hgb) 7.9 12.0-16.0 [place] [address]-08-11 08:17:00 Test Item Value Reference Range Interpretation Comments Hct (test code = Hct) 24.0 36.0-48.0 [place] [address]-08-11 08:17:00 Test Item Value Reference Range Interpretation Comments MCV (test code = MCV) 90.6 80.0-98.0 [place] [address]-08-11 08:17:00 Test Item Value Reference Range Interpretation Comments MCH (test code = MCH) 29.7 pg 27.0-31.0 [place] 088951-08-11 08:17:00 Test Item Value Reference Range Interpretation Comments MCHC (test code = MCHC) 32.7 32.0-36.0 [facility]UXWJANFCL3680[facility] 08:17:00 Test Item Value Reference Range Interpretation Comments RDW (test code = RDW) 19.1 11.5-14.5 [place] 088951-08-11 08:17:00 Test Item Value Reference Range Interpretation Comments Platelet (test code = Platelet) 71 133-450 [place] 088951-08-11 08:17:00 Test Item Value Reference Range Interpretation Comments MPV (test code = MPV) 9.9 7.4-10.4 [place] 088951-08-11 08:17:00 Test Item Value Reference Range Interpretation Comments Segs (test code = Segs) 56.1 45.0-75.0 [place] 088951-08-11 08:17:00 Test Item Value Reference Range Interpretation Comments Lymphocytes (test code = Lymphocytes) 28.9 20.0-40.0 [place] 088951-08-11 08:17:00 Test Item Value Reference Range Interpretation Comments Monocytes (test code = Monocytes) 8.1 2.0-12.0 [facility]SyhbbqgGWYBAKJHDY3241-97-95 08:17:00 Test Item Value Reference Range Interpretation Comments Eosinophils (test code = 5.9 See_Comment [A utomated message] The Eosinophils) system which ge nerated this result tra nsmitted reference range : <=4.0. The reference r leo was not used to int erpret this result as normal/abnormal . [facility] HospitalPdrbufxTPBXHWEGWI6001-20-27 08:17:00 Test Item Value Reference Range Interpretation Comments Basophils (test code = 1.0 See_Comment [Aut omated message] The Basophils) system which ge nerated this result tra nsmitted reference range : <=1.0. The reference r leo was not used to int erpret this result as normal/abnormal . [place] 088951-08-11 08:17:00 Test Item Value Reference Range Interpretation Comments Neutrophils # (test code = Neutrophils 1.3 1.5-8.1 #) [place] 088951-08-11 08:17:00 Test Item Value Reference Range Interpretation Comments Lymphocytes # (test code = Lymphocytes 0.7 1.0-5.5 #) [place] 088951-08-11 08:17:00 Test Item Value Reference Range Interpretation Comments Monocytes # (test code 0.2 See_Comment [Aut omated message] The = Monocytes #) system which generated this result tra nsmitted reference range : <=0.8. The reference r leo was not used to int erpret this result as normal/abnormal . [place] 088951-08-11 08:17:00 Test Item Value Reference Range Interpretation Comments Eosinophils # (test code 0.1 See_Comment [A utomated message] The = Eosinophils #) system whic h generated this result tra nsmitted reference range : <=0.5. The reference r leo was not used to int erpret this result as normal/abnormal . [place] 322431-08-11 08:17:00 Test Item Value Reference Range Interpretation Comments Glucose Lvl (test code = Glucose Lvl) 94 70-99 [place] 322431-08-11 08:17:00 Test Item Value Reference Range Interpretation Comments BUN (test code = BUN) 27 7-22 [place] 322431-08-11 08:17:00 Test Item Value Reference Range Interpretation Comments Creatinine Lvl (test code = Creatinine 4.95 0.50-1.40 Lvl) [place] 322431-08-11 08:17:00 Test Item Value Reference Range Interpretation Comments Sodium Lvl (test code = Sodium Lvl) 136 135-145 [place] 322431-08-11 08:17:00 Test Item Value Reference Range Interpretation Comments Potassium Lvl (test code = Potassium 3.9 3.5-5.1 Lvl) [place] [address]-08-11 08:17:00 Test Item Value Reference Range Interpretation Comments Chloride Lvl (test code = Chloride Lvl) 103 95-109 [place] 322431-08-11 08:17:00 Test Item Value Reference Range Interpretation Comments CO2 (test code = CO2) 30 24-32 [place] 322431-08-11 08:17:00 Test Item Value Reference Range Interpretation Comments AGAP (test code = AGAP) 6.9 10.0-20.0 [facility]2021-08-11 08:17:00 Test Item Value Reference Range Interpretation Comments Calcium Lvl (test code = Calcium Lvl) 8.5 8.5-10.5 [place] 322431-08-11 08:17:00 Test Item Value Reference Range Interpretation Comments eGFR (test code = eGFR) 10 [facility]2021-08-11 08:17:00 Test Item Value Reference Range Interpretation Comments Phosphorus (test code = Phosphorus) 3.0 2.5-4.5 [place] 322431-08-11 08:17:00 Test Item Value Reference Range Interpretation Comments Magnesium Lvl (test code = Magnesium 2.4 1.8-2.4 Lvl) [place] 088951-08-11 08:17:00 Test Item Value Reference Range Interpretation Comments WBC (test code = WBC) 2.3 3.7-10.4 [place] 088951-08-11 08:17:00 Test Item Value Reference Range Interpretation Comments RBC (test code = RBC) 2.65 4.20-5.40 [place] 088951-08-11 08:17:00 Test Item Value Reference Range Interpretation Comments Hgb (test code = Hgb) 7.9 12.0-16.0 [place] 088951-08-11 08:17:00 Test Item Value Reference Range Interpretation Comments Hct (test code = Hct) 24.0 36.0-48.0 [place] 088951-08-11 08:17:00 Test Item Value Reference Range Interpretation Comments MCV (test code = MCV) 90.6 80.0-98.0 [place] 088951-08-11 08:17:00 Test Item Value Reference Range Interpretation Comments MCH (test code = MCH) 29.7 pg 27.0-31.0 [place] 088951-08-11 08:17:00 Test Item Value Reference Range Interpretation Comments MCHC (test code = MCHC) 32.7 32.0-36.0 [place] [address]-08-11 08:17:00 Test Item Value Reference Range Interpretation Comments RDW (test code = RDW) 19.1 11.5-14.5 [place] [address]-08-11 08:17:00 Test Item Value Reference Range Interpretation Comments Platelet (test code = Platelet) 71 133-450 [place] 088951-08-11 08:17:00 Test Item Value Reference Range Interpretation Comments MPV (test code = MPV) 9.9 7.4-10.4 [facility] HospitalSckqjheGUPLRWVRZL0587-51-17 08:17:00 Test Item Value Reference Range Interpretation Comments Segs (test code = Segs) 56.1 45.0-75.0 [facility] HospitalAgglkuqACKVPELRBO9421-99-85 08:17:00 Test Item Value Reference Range Interpretation Comments Lymphocytes (test code = Lymphocytes) 28.9 20.0-40.0 [place] 088951-08-11 08:17:00 Test Item Value Reference Range Interpretation Comments Monocytes (test code = Monocytes) 8.1 2.0-12.0 [facility] HospitalLkxkwhyLYTISQHJMO6956-54-94 08:17:00 Test Item Value Reference Range Interpretation Comments Eosinophils (test code = 5.9 See_Comment [A utomated message] The Eosinophils) system which ge nerated this result tra nsmitted reference range : <=4.0. The reference r leo was not used to int erpret this result as normal/abnormal . [facility] HospitalIgclkebTMHCDEOOOH9238-23-50 08:17:00 Test Item Value Reference Range Interpretation Comments Basophils (test code = 1.0 See_Comment [Aut omated message] The Basophils) system which ge nerated this result tra nsmitted reference range : <=1.0. The reference r leo was not used to int erpret this result as normal/abnormal . [facility] HospitalLrpguiwCZANAWGINW1798-71-52 08:17:00 Test Item Value Reference Range Interpretation Comments Neutrophils # (test code = Neutrophils 1.3 1.5-8.1 #) [place] 088951-08-11 08:17:00 Test Item Value Reference Range Interpretation Comments Lymphocytes # (test code = Lymphocytes 0.7 1.0-5.5 #) [place] 088951-08-11 08:17:00 Test Item Value Reference Range Interpretation Comments Monocytes # (test code 0.2 See_Comment [Aut omated message] The = Monocytes #) system which generated this result tra nsmitted reference range : <=0.8. The reference r leo was not used to int erpret this result as normal/abnormal . [facility] HospitalFkzltjsGNIRDWEIBO2703-54-97 08:17:00 Test Item Value Reference Range Interpretation Comments Eosinophils # (test code 0.1 See_Comment [A utomated message] The = Eosinophils #) system [employer] h generated this result tra nsmitted reference range : <=0.5. The reference r leo was not used to int erpret this result as normal/abnormal . [place] 322431-08-11 08:17:00 Test Item Value Reference Range Interpretation Comments Glucose Lvl (test code = Glucose Lvl) 94 70-99 [place] 322431-08-11 08:17:00 Test Item Value Reference Range Interpretation Comments BUN (test code = BUN) 27 7-22 [place] 322431-08-11 08:17:00 Test Item Value Reference Range Interpretation Comments Creatinine Lvl (test code = Creatinine 4.95 0.50-1.40 Lvl) [place] 322431-08-11 08:17:00 Test Item Value Reference Range Interpretation Comments Sodium Lvl (test code = Sodium Lvl) 136 135-145 [place] 322431-08-11 08:17:00 Test Item Value Reference Range Interpretation Comments Potassium Lvl (test code = Potassium 3.9 3.5-5.1 Lvl) [place] 322431-08-11 08:17:00 Test Item Value Reference Range Interpretation Comments Chloride Lvl (test code = Chloride Lvl) 103 95-109 [place] 322431-08-11 08:17:00 Test Item Value Reference Range Interpretation Comments CO2 (test code = CO2) 30 24-32 [place] 322431-08-11 08:17:00 Test Item Value Reference Range Interpretation Comments AGAP (test code = AGAP) 6.9 10.0-20.0 [place] 322431-08-11 08:17:00 Test Item Value Reference Range Interpretation Comments Calcium Lvl (test code = Calcium Lvl) 8.5 8.5-10.5 [place] 322431-08-11 08:17:00 Test Item Value Reference Range Interpretation Comments eGFR (test code = eGFR) 10 [place] [address]-08-11 08:17:00 Test Item Value Reference Range Interpretation Comments Phosphorus (test code = Phosphorus) 3.0 2.5-4.5 [facility]2021-08-11 08:17:00 Test Item Value Reference Range Interpretation Comments Magnesium Lvl (test code = Magnesium 2.4 1.8-2.4 Lvl) [facility] HospitalEkkwigjGKOMPUQEXE1320-00-75 08:17:00 Test Item Value Reference Range Interpretation Comments WBC (test code = WBC) 2.3 3.7-10.4 [facility] HospitalBszwkijIDYALTBRSI1776-39-61 08:17:00 Test Item Value Reference Range Interpretation Comments RBC (test code = RBC) 2.65 4.20-5.40 [place] 088951-08-11 08:17:00 Test Item Value Reference Range Interpretation Comments Hgb (test code = Hgb) 7.9 12.0-16.0 [place] 088951-08-11 08:17:00 Test Item Value Reference Range Interpretation Comments Hct (test code = Hct) 24.0 36.0-48.0 [facility] HospitalLkwbhjeEBTKYUGKSW3225-59-35 08:17:00 Test Item Value Reference Range Interpretation Comments MCV (test code = MCV) 90.6 80.0-98.0 [facility] HospitalRxxgmxwHCVGGIBUPI1634-44-43 08:17:00 Test Item Value Reference Range Interpretation Comments MCH (test code = MCH) 29.7 pg 27.0-31.0 [facility] HospitalYzqfezsDWSEMVNPQC1970-85-69 08:17:00 Test Item Value Reference Range Interpretation Comments MCHC (test code = MCHC) 32.7 32.0-36.0 [facility] HospitalMmntidaRJPBJUGRHK9052-18-99 08:17:00 Test Item Value Reference Range Interpretation Comments RDW (test code = RDW) 19.1 11.5-14.5 [place] 088951-08-11 08:17:00 Test Item Value Reference Range Interpretation Comments Platelet (test code = Platelet) 71 133-450 [facility] HospitalUkiapflJGIDIXSBES5998-31-23 08:17:00 Test Item Value Reference Range Interpretation Comments MPV (test code = MPV) 9.9 7.4-10.4 [place] 088951-08-11 08:17:00 Test Item Value Reference Range Interpretation Comments Segs (test code = Segs) 56.1 45.0-75.0 [place] 088951-08-11 08:17:00 Test Item Value Reference Range Interpretation Comments Lymphocytes (test code = Lymphocytes) 28.9 20.0-40.0 [place] 088951-08-11 08:17:00 Test Item Value Reference Range Interpretation Comments Monocytes (test code = Monocytes) 8.1 2.0-12.0 [place] 088951-08-11 08:17:00 Test Item Value Reference Range Interpretation Comments Eosinophils (test code = 5.9 See_Comment [A utomated message] The Eosinophils) system which ge nerated this result tra nsmitted reference range : <=4.0. The reference r leo was not used to int erpret this result as normal/abnormal . [place] 088951-08-11 08:17:00 Test Item Value Reference Range Interpretation Comments Basophils (test code = 1.0 See_Comment [Aut omated message] The Basophils) system which ge nerated this result tra nsmitted reference range : <=1.0. The reference r leo was not used to int erpret this result as normal/abnormal . [facility] HospitalHbdopshEBWLINGCUE2154-14-45 08:17:00 Test Item Value Reference Range Interpretation Comments Neutrophils # (test code = Neutrophils 1.3 1.5-8.1 #) [place] 088951-08-11 08:17:00 Test Item Value Reference Range Interpretation Comments Lymphocytes # (test code = Lymphocytes 0.7 1.0-5.5 #) [place] 088951-08-11 08:17:00 Test Item Value Reference Range Interpretation Comments Monocytes # (test code 0.2 See_Comment [Aut omated message] The = Monocytes #) system which generated this result tra nsmitted reference range : <=0.8. The reference r leo was not used to int erpret this result as normal/abnormal . [facility] HospitalVqtliitRTPKXIMOSJ3636-63-85 08:17:00 Test Item Value Reference Range Interpretation Comments Eosinophils # (test code 0.1 See_Comment [A utomated message] The = Eosinophils #) system whic h generated this result tra nsmitted reference range : <=0.5. The reference r leo was not used to int erpret this result as normal/abnormal . [place] 322431-08-11 08:17:00 Test Item Value Reference Range Interpretation Comments Glucose Lvl (test code = Glucose Lvl) 94 70-99 [place] 322431-08-11 08:17:00 Test Item Value Reference Range Interpretation Comments BUN (test code = BUN) 27 7-22 [place] 322431-08-11 08:17:00 Test Item Value Reference Range Interpretation Comments Creatinine Lvl (test code = Creatinine 4.95 0.50-1.40 Lvl) [place] 322431-08-11 08:17:00 Test Item Value Reference Range Interpretation Comments Sodium Lvl (test code = Sodium Lvl) 136 135-145 [place] 322431-08-11 08:17:00 Test Item Value Reference Range Interpretation Comments Potassium Lvl (test code = Potassium 3.9 3.5-5.1 Lvl) [facility]2021-08-11 08:17:00 Test Item Value Reference Range Interpretation Comments Chloride Lvl (test code = Chloride Lvl) 103 95-109 [facility]2021-08-11 08:17:00 Test Item Value Reference Range Interpretation Comments CO2 (test code = CO2) 30 24-32 [place] 322431-08-11 08:17:00 Test Item Value Reference Range Interpretation Comments AGAP (test code = AGAP) 6.9 10.0-20.0 [facility]2021-08-11 08:17:00 Test Item Value Reference Range Interpretation Comments Calcium Lvl (test code = Calcium Lvl) 8.5 8.5-10.5 [place] 322431-08-11 08:17:00 Test Item Value Reference Range Interpretation Comments eGFR (test code = eGFR) 10 [place] 322431-08-11 08:17:00 Test Item Value Reference Range Interpretation Comments Phosphorus (test code = Phosphorus) 3.0 2.5-4.5 [place] 322431-08-11 08:17:00 Test Item Value Reference Range Interpretation Comments Magnesium Lvl (test code = Magnesium 2.4 1.8-2.4 Lvl) [facility] 08:17:00 Test Item Value Reference Range Interpretation Comments WBC (test code = WBC) 2.3 3.7-10.4 [facility] HospitalVjicfdaXQDRWLROCZ3407-65-12 08:17:00 Test Item Value Reference Range Interpretation Comments RBC (test code = RBC) 2.65 4.20-5.40 [facility] HospitalHfddkutXZOBOHJZIX1316-96-82 08:17:00 Test Item Value Reference Range Interpretation Comments Hgb (test code = Hgb) 7.9 12.0-16.0 [facility] HospitalDegmamqFXPCDCJBFR2037-73-86 08:17:00 Test Item Value Reference Range Interpretation Comments Hct (test code = Hct) 24.0 36.0-48.0 [facility] HospitalMhrzmqcKYXJCPNBIX5069-88-85 08:17:00 Test Item Value Reference Range Interpretation Comments MCV (test code = MCV) 90.6 80.0-98.0 [facility] HospitalIjxzgfvZPHIEBDFZX6300-45-69 08:17:00 Test Item Value Reference Range Interpretation Comments MCH (test code = MCH) 29.7 pg 27.0-31.0 [facility] HospitalNlsbfmrOTRDQUSMEQ4527-11-25 08:17:00 Test Item Value Reference Range Interpretation Comments MCHC (test code = MCHC) 32.7 32.0-36.0 [facility] HospitalJhdgpotCWNEDCBOEJ2835-17-24 08:17:00 Test Item Value Reference Range Interpretation Comments RDW (test code = RDW) 19.1 11.5-14.5 [facility] HospitalBjpwzjsGQLVCTLZZA6148-36-10 08:17:00 Test Item Value Reference Range Interpretation Comments Platelet (test code = Platelet) 71 133-450 [facility] HospitalRyhkaexLWOBLNWYLZ0929-78-92 08:17:00 Test Item Value Reference Range Interpretation Comments MPV (test code = MPV) 9.9 7.4-10.4 [facility] HospitalZdhkcpxVKEOBINLPT4139-76-28 08:17:00 Test Item Value Reference Range Interpretation Comments Segs (test code = Segs) 56.1 45.0-75.0 [facility] HospitalDxsfiulSQSTUYRCKQ4530-49-30 08:17:00 Test Item Value Reference Range Interpretation Comments Lymphocytes (test code = Lymphocytes) 28.9 20.0-40.0 [facility] HospitalUuxwnllVUTRZIUKUH3441-53-67 08:17:00 Test Item Value Reference Range Interpretation Comments Monocytes (test code = Monocytes) 8.1 2.0-12.0 [place] 088951-08-11 08:17:00 Test Item Value Reference Range Interpretation Comments Eosinophils (test code = 5.9 See_Comment [A utomated message] The Eosinophils) system which ge nerated this result tra nsmitted reference range : <=4.0. The reference r leo was not used to int erpret this result as normal/abnormal . [facility] HospitalNbnfpmtWPYZHKFPHG9328-83-40 08:17:00 Test Item Value Reference Range Interpretation Comments Basophils (test code = 1.0 See_Comment [Aut omated message] The Basophils) system which ge nerated this result tra nsmitted reference range : <=1.0. The reference r leo was not used to int erpret this result as normal/abnormal . [facility] HospitalFufbsjjSZKZGYXMAD4891-77-34 08:17:00 Test Item Value Reference Range Interpretation Comments Neutrophils # (test code = Neutrophils 1.3 1.5-8.1 #) [place] 088951-08-11 08:17:00 Test Item Value Reference Range Interpretation Comments Lymphocytes # (test code = Lymphocytes 0.7 1.0-5.5 #) [place] 088951-08-11 08:17:00 Test Item Value Reference Range Interpretation Comments Monocytes # (test code 0.2 See_Comment [Aut omated message] The = Monocytes #) system which generated this result tra nsmitted reference range : <=0.8. The reference r leo was not used to int erpret this result as normal/abnormal . [facility] HospitalNkbfysbDWZFWWFWVA6563-77-42 08:17:00 Test Item Value Reference Range Interpretation Comments Eosinophils # (test code 0.1 See_Comment [A utomated message] The = Eosinophils #) system whic h generated this result tra nsmitted reference range : <=0.5. The reference r leo was not used to int erpret this result as normal/abnormal . [facility] EVYUY6574-03-86 09:30:00 Test Item Value Reference Range Interpretation Comments Glucose Lvl (test code = Glucose Lvl) 61 70-99 [facility] EGKUK8467-73-81 09:30:00 Test Item Value Reference Range Interpretation Comments BUN (test code = BUN) 13 7-22 [place] [address]-08-10 09:30:00 Test Item Value Reference Range Interpretation Comments Creatinine Lvl (test code = Creatinine 3.71 0.50-1.40 Lvl) [place] 322431-08-10 09:30:00 Test Item Value Reference Range Interpretation Comments Sodium Lvl (test code = Sodium Lvl) 136 135-145 [place] 322431-08-10 09:30:00 Test Item Value Reference Range Interpretation Comments Potassium Lvl (test code = Potassium 4.3 3.5-5.1 Lvl) [place] [address]-08-10 09:30:00 Test Item Value Reference Range Interpretation Comments Chloride Lvl (test code = Chloride Lvl) 103 95-109 [place] 322431-08-10 09:30:00 Test Item Value Reference Range Interpretation Comments CO2 (test code = CO2) 27 24-32 [place] 322431-08-10 09:30:00 Test Item Value Reference Range Interpretation Comments Calcium Lvl (test code = Calcium Lvl) 7.9 8.5-10.5 [place] 322431-08-10 09:30:00 Test Item Value Reference Range Interpretation Comments AGAP (test code = AGAP) 10.3 10.0-20.0 [place] 322431-08-10 09:30:00 Test Item Value Reference Range Interpretation Comments eGFR (test code = eGFR) 15 [place] 322431-08-10 09:30:00 Test Item Value Reference Range Interpretation Comments Magnesium Lvl (test code = Magnesium 2.3 1.8-2.4 Lvl) [place] 322431-08-10 09:30:00 Test Item Value Reference Range Interpretation Comments Phosphorus (test code = Phosphorus) 3.1 2.5-4.5 [place] [address]-08-10 09:30:00 Test Item Value Reference Range Interpretation Comments Segs (test code = Segs) 61.5 45.0-75.0 [place] [address]-08-10 09:30:00 Test Item Value Reference Range Interpretation Comments Lymphocytes (test code = Lymphocytes) 24.6 20.0-40.0 [place] 088951-08-10 09:30:00 Test Item Value Reference Range Interpretation Comments Monocytes (test code = Monocytes) 7.4 2.0-12.0 [place] 088951-08-10 09:30:00 Test Item Value Reference Range Interpretation Comments Eosinophils (test code = 5.5 See_Comment [A utomated message] The Eosinophils) system which ge nerated this result tra nsmitted reference range : <=4.0. The reference r leo was not used to int erpret this result as normal/abnormal . [place] 088951-08-10 09:30:00 Test Item Value Reference Range Interpretation Comments Basophils (test code = 1.0 See_Comment [Aut omated message] The Basophils) system which ge nerated this result tra nsmitted reference range : <=1.0. The reference r leo was not used to int erpret this result as normal/abnormal . [place] [address]-08-10 09:30:00 Test Item Value Reference Range Interpretation Comments Neutrophils # (test code = Neutrophils 1.6 1.5-8.1 #) [place] [address]-08-10 09:30:00 Test Item Value Reference Range Interpretation Comments Lymphocytes # (test code = Lymphocytes 0.6 1.0-5.5 #) [place] [address]-08-10 09:30:00 Test Item Value Reference Range Interpretation Comments Monocytes # (test code 0.2 See_Comment [Aut omated message] The = Monocytes #) system which generated this result tra nsmitted reference range : <=0.8. The reference r leo was not used to int erpret this result as normal/abnormal . [place] 088951-08-10 09:30:00 Test Item Value Reference Range Interpretation Comments Eosinophils # (test code 0.1 See_Comment [A utomated message] The = Eosinophils #) system whic h generated this result tra nsmitted reference range : <=0.5. The reference r leo was not used to int erpret this result as normal/abnormal . [place] 088951-08-10 09:30:00 Test Item Value Reference Range Interpretation [...] studies, if clinically indicated, are recommended. CPT: 37890 [facility]AnjhfbmYDOJEYGEJJ9034-[facility]-16 09:30:00 Test Item Value Reference Range Interpretation Comments WBC (test code = WBC) 2.5 3.7-10.4 [facility]VhlbldjMRFSVLDUYP0041-52-74 09:30:00 Test Item Value Reference Range Interpretation Comments RBC (test code = RBC) 2.68 4.20-5.40 [place] 088951-08-10 09:30:00 Test Item Value Reference Range Interpretation Comments Hgb (test code = Hgb) 8.2 12.0-16.0 [facility] HospitalChqbgicOOZKOGARGX4356-50-41 09:30:00 Test Item Value Reference Range Interpretation Comments Hct (test code = Hct) 24.3 36.0-48.0 [facility] HospitalQmphauuDGOHXDRFRC2629-67-90 09:30:00 Test Item Value Reference Range Interpretation Comments MCV (test code = MCV) 90.9 80.0-98.0 [facility] HospitalXepitrtWJVXHOWCEB0823-94-37 09:30:00 Test Item Value Reference Range Interpretation Comments MCH (test code = MCH) 30.5 pg 27.0-31.0 [facility] HospitalDihiyrgQFVSVLLQMT1055-08-91 09:30:00 Test Item Value Reference Range Interpretation Comments MCHC (test code = MCHC) 33.6 32.0-36.0 [facility] HospitalHazndhiZNYOATNCWE8017-25-15 09:30:00 Test Item Value Reference Range Interpretation Comments RDW (test code = RDW) 19.4 11.5-14.5 [place] 088951-08-10 09:30:00 Test Item Value Reference Range Interpretation Comments Platelet (test code = Platelet) 70 133-450 [facility] HospitalLathwzsNUFRQWLTIQ8685-64-23 09:30:00 Test Item Value Reference Range Interpretation Comments MPV (test code = MPV) 10.7 7.4-10.4 [facility]2021-08-10 09:30:00 Test Item Value Reference Range Interpretation Comments Glucose Lvl (test code = Glucose Lvl) 61 70-99 [place] 322431-08-10 09:30:00 Test Item Value Reference Range Interpretation Comments BUN (test code = BUN) 13 7-22 [place] 322431-08-10 09:30:00 Test Item Value Reference Range Interpretation Comments Creatinine Lvl (test code = Creatinine 3.71 0.50-1.40 Lvl) [place] 322431-08-10 09:30:00 Test Item Value Reference Range Interpretation Comments Sodium Lvl (test code = Sodium Lvl) 136 135-145 [place] 322431-08-10 09:30:00 Test Item Value Reference Range Interpretation Comments Potassium Lvl (test code = Potassium 4.3 3.5-5.1 Lvl) [place] 322431-08-10 09:30:00 Test Item Value Reference Range Interpretation Comments Chloride Lvl (test code = Chloride Lvl) 103 95-109 [place] 322431-08-10 09:30:00 Test Item Value Reference Range Interpretation Comments CO2 (test code = CO2) 27 24-32 [place] 322431-08-10 09:30:00 Test Item Value Reference Range Interpretation Comments Calcium Lvl (test code = Calcium Lvl) 7.9 8.5-10.5 [place] 322431-08-10 09:30:00 Test Item Value Reference Range Interpretation Comments AGAP (test code = AGAP) 10.3 10.0-20.0 [place] 322431-08-10 09:30:00 Test Item Value Reference Range Interpretation Comments eGFR (test code = eGFR) 15 [place] 322431-08-10 09:30:00 Test Item Value Reference Range Interpretation Comments Magnesium Lvl (test code = Magnesium 2.3 1.8-2.4 Lvl) [place] 322431-08-10 09:30:00 Test Item Value Reference Range Interpretation Comments Phosphorus (test code = Phosphorus) 3.1 2.5-4.5 [place] 088951-08-10 09:30:00 Test Item Value Reference Range Interpretation Comments Segs (test code = Segs) 61.5 45.0-75.0 [place] 088951-08-10 09:30:00 Test Item Value Reference Range Interpretation Comments Lymphocytes (test code = Lymphocytes) 24.6 20.0-40.0 [facility] HospitalCtwbqyhUETWAJTZLE5032-31-39 09:30:00 Test Item Value Reference Range Interpretation Comments Monocytes (test code = Monocytes) 7.4 2.0-12.0 [facility] HospitalDkxjxedLGUGJIPNMN6784-22-66 09:30:00 Test Item Value Reference Range Interpretation Comments Eosinophils (test code = 5.5 See_Comment [A utomated message] The Eosinophils) system which ge nerated this result tra nsmitted reference range : <=4.0. The reference r leo was not used to int erpret this result as normal/abnormal . [facility] HospitalOrhkvqiQPACOKBOYR8110-52-51 09:30:00 Test Item Value Reference Range Interpretation Comments Basophils (test code = 1.0 See_Comment [Aut omated message] The Basophils) system which ge nerated this result tra nsmitted reference range : <=1.0. The reference r leo was not used to int erpret this result as normal/abnormal . [facility] HospitalGbohxfbNPCTVABFZI1802-87-00 09:30:00 Test Item Value Reference Range Interpretation Comments Neutrophils # (test code = Neutrophils 1.6 1.5-8.1 #) [facility] HospitalUdpsfwqYPNYCGNBTO0478-32-59 09:30:00 Test Item Value Reference Range Interpretation Comments Lymphocytes # (test code = Lymphocytes 0.6 1.0-5.5 #) [facility] HospitalEsftgviTHRYXCUDBZ9297-58-33 09:30:00 Test Item Value Reference Range Interpretation Comments Monocytes # (test code 0.2 See_Comment [Aut omated message] The = Monocytes #) system which generated this result tra nsmitted reference range : <=0.8. The reference r leo was not used to int erpret this result as normal/abnormal . [facility] HospitalCadguyzWLLISRXSKM9669-97-18 09:30:00 Test Item Value Reference Range Interpretation Comments Eosinophils # (test code 0.1 See_Comment [A utomated message] The = Eosinophils #) system whic h generated this result tra nsmitted reference range : <=0.5. The reference r leo was not used to int erpret this result as normal/abnormal . [facility] HospitalPwwlchvKOGIEQJDNJ9083-44-37 09:30:00 Test Item Value Reference Range Interpretation [...] studies, if clinically indicated, are recommended. CPT: 00217 [facility] HospitalDqakappMLCHQKGDLH6723-86-94 09:30:00 Test Item Value Reference Range Interpretation Comments WBC (test code = WBC) 2.5 3.7-10.4 [place] 088951-08-10 09:30:00 Test Item Value Reference Range Interpretation Comments RBC (test code = RBC) 2.68 4.20-5.40 [facility] HospitalKbugrkzXGJSNDINLN9414-08-07 09:30:00 Test Item Value Reference Range Interpretation Comments Hgb (test code = Hgb) 8.2 12.0-16.0 [place] 088951-08-10 09:30:00 Test Item Value Reference Range Interpretation Comments Hct (test code = Hct) 24.3 36.0-48.0 [place] 088951-08-10 09:30:00 Test Item Value Reference Range Interpretation Comments MCV (test code = MCV) 90.9 80.0-98.0 [place] 088951-08-10 09:30:00 Test Item Value Reference Range Interpretation Comments MCH (test code = MCH) 30.5 pg 27.0-31.0 [place] 088951-08-10 09:30:00 Test Item Value Reference Range Interpretation Comments MCHC (test code = MCHC) 33.6 32.0-36.0 [facility] HospitalPekxqkjIQDKKCDFUN7281-46-45 09:30:00 Test Item Value Reference Range Interpretation Comments RDW (test code = RDW) 19.4 11.5-14.5 [facility] HospitalSskybtdTPVNKSEIJX9857-78-47 09:30:00 Test Item Value Reference Range Interpretation Comments Platelet (test code = Platelet) 70 133-450 [facility] HospitalZslhhlpNWTUQIWQOP3659-38-79 09:30:00 Test Item Value Reference Range Interpretation Comments MPV (test code = MPV) 10.7 7.4-10.4 [place] 322431-08-10 09:30:00 Test Item Value Reference Range Interpretation Comments Glucose Lvl (test code = Glucose Lvl) 61 70-99 [place] 322431-08-10 09:30:00 Test Item Value Reference Range Interpretation Comments BUN (test code = BUN) 13 7-22 [place] 322431-08-10 09:30:00 Test Item Value Reference Range Interpretation Comments Creatinine Lvl (test code = Creatinine 3.71 0.50-1.40 Lvl) [place] 322431-08-10 09:30:00 Test Item Value Reference Range Interpretation Comments Sodium Lvl (test code = Sodium Lvl) 136 135-145 [place] 322431-08-10 09:30:00 Test Item Value Reference Range Interpretation Comments Potassium Lvl (test code = Potassium 4.3 3.5-5.1 Lvl) [place] 322431-08-10 09:30:00 Test Item Value Reference Range Interpretation Comments Chloride Lvl (test code = Chloride Lvl) 103 95-109 [place] 322431-08-10 09:30:00 Test Item Value Reference Range Interpretation Comments CO2 (test code = CO2) 27 24-32 [place] 322431-08-10 09:30:00 Test Item Value Reference Range Interpretation Comments Calcium Lvl (test code = Calcium Lvl) 7.9 8.5-10.5 [place] 322431-08-10 09:30:00 Test Item Value Reference Range Interpretation Comments AGAP (test code = AGAP) 10.3 10.0-20.0 [place] 322431-08-10 09:30:00 Test Item Value Reference Range Interpretation Comments eGFR (test code = eGFR) 15 [place] 322431-08-10 09:30:00 Test Item Value Reference Range Interpretation Comments Magnesium Lvl (test code = Magnesium 2.3 1.8-2.4 Lvl) [place] 322431-08-10 09:30:00 Test Item Value Reference Range Interpretation Comments Phosphorus (test code = Phosphorus) 3.1 2.5-4.5 [place] 088951-08-10 09:30:00 Test Item Value Reference Range Interpretation Comments Segs (test code = Segs) 61.5 45.0-75.0 [facility] HospitalZgrkinyZPXHFNJAGI9686-31-22 09:30:00 Test Item Value Reference Range Interpretation Comments Lymphocytes (test code = Lymphocytes) 24.6 20.0-40.0 [facility] HospitalFcddsrkADELCSWZTX3831-48-94 09:30:00 Test Item Value Reference Range Interpretation Comments Monocytes (test code = Monocytes) 7.4 2.0-12.0 [place] 088951-08-10 09:30:00 Test Item Value Reference Range Interpretation Comments Eosinophils (test code = 5.5 See_Comment [A utomated message] The Eosinophils) system which ge nerated this result tra nsmitted reference range : <=4.0. The reference r leo was not used to int erpret this result as normal/abnormal . [facility] HospitalDrxrfozFHDSOSAWCH1966-91-25 09:30:00 Test Item Value Reference Range Interpretation Comments Basophils (test code = 1.0 See_Comment [Aut omated message] The Basophils) system which ge nerated this result tra nsmitted reference range : <=1.0. The reference r leo was not used to int erpret this result as normal/abnormal . [facility] HospitalPqmdcyzJQHFBVANQT3920-15-74 09:30:00 Test Item Value Reference Range Interpretation Comments Neutrophils # (test code = Neutrophils 1.6 1.5-8.1 #) [facility] HospitalNzowrluSXRSZOQPQI3190-84-96 09:30:00 Test Item Value Reference Range Interpretation Comments Lymphocytes # (test code = Lymphocytes 0.6 1.0-5.5 #) [place] 088951-08-10 09:30:00 Test Item Value Reference Range Interpretation Comments Monocytes # (test code 0.2 See_Comment [Aut omated message] The = Monocytes #) system which generated this result tra nsmitted reference range : <=0.8. The reference r leo was not used to int erpret this result as normal/abnormal . [facility] HospitalIlmimrvFBLDCGNBBO4481-45-90 09:30:00 Test Item Value Reference Range Interpretation Comments Eosinophils # (test code 0.1 See_Comment [A utomated message] The = Eosinophils #) system whic h generated this result tra nsmitted reference range : <=0.5. The reference r leo was not used to int erpret this result as normal/abnormal . [place] 088951-08-10 09:30:00 Test Item Value Reference Range Interpretation [...] studies, if clinically indicated, are recommended. CPT: 73497 [place] 088951-08-10 09:30:00 Test Item Value Reference Range Interpretation Comments WBC (test code = WBC) 2.5 3.7-10.4 [place] [address]-08-10 09:30:00 Test Item Value Reference Range Interpretation Comments RBC (test code = RBC) 2.68 4.20-5.40 [place] [address]-08-10 09:30:00 Test Item Value Reference Range Interpretation Comments Hgb (test code = Hgb) 8.2 12.0-16.0 [place] [address]-08-10 09:30:00 Test Item Value Reference Range Interpretation Comments Hct (test code = Hct) 24.3 36.0-48.0 [place] [address]-08-10 09:30:00 Test Item Value Reference Range Interpretation Comments MCV (test code = MCV) 90.9 80.0-98.0 [place] [address]-08-10 09:30:00 Test Item Value Reference Range Interpretation Comments MCH (test code = MCH) 30.5 pg 27.0-31.0 [place] [address]-08-10 09:30:00 Test Item Value Reference Range Interpretation Comments MCHC (test code = MCHC) 33.6 32.0-36.0 [place] [address]-08-10 09:30:00 Test Item Value Reference Range Interpretation Comments RDW (test code = RDW) 19.4 11.5-14.5 [place] [address]-08-10 09:30:00 Test Item Value Reference Range Interpretation Comments Platelet (test code = Platelet) 70 133-450 [place] 088951-08-10 09:30:00 Test Item Value Reference Range Interpretation Comments MPV (test code = MPV) 10.7 7.4-10.4 [place] 322431-08-10 09:30:00 Test Item Value Reference Range Interpretation Comments Glucose Lvl (test code = Glucose Lvl) 61 70-99 [place] 322431-08-10 09:30:00 Test Item Value Reference Range Interpretation Comments BUN (test code = BUN) 13 7-22 [place] 322431-08-10 09:30:00 Test Item Value Reference Range Interpretation Comments Creatinine Lvl (test code = Creatinine 3.71 0.50-1.40 Lvl) [place] 322431-08-10 09:30:00 Test Item Value Reference Range Interpretation Comments Sodium Lvl (test code = Sodium Lvl) 136 135-145 [place] 322431-08-10 09:30:00 Test Item Value Reference Range Interpretation Comments Potassium Lvl (test code = Potassium 4.3 3.5-5.1 Lvl) [place] 322431-08-10 09:30:00 Test Item Value Reference Range Interpretation Comments Chloride Lvl (test code = Chloride Lvl) 103 95-109 [place] 322431-08-10 09:30:00 Test Item Value Reference Range Interpretation Comments CO2 (test code = CO2) 27 24-32 [place] 322431-08-10 09:30:00 Test Item Value Reference Range Interpretation Comments Calcium Lvl (test code = Calcium Lvl) 7.9 8.5-10.5 [place] 322431-08-10 09:30:00 Test Item Value Reference Range Interpretation Comments AGAP (test code = AGAP) 10.3 10.0-20.0 [place] 322431-08-10 09:30:00 Test Item Value Reference Range Interpretation Comments eGFR (test code = eGFR) 15 [place] 322431-08-10 09:30:00 Test Item Value Reference Range Interpretation Comments Magnesium Lvl (test code = Magnesium 2.3 1.8-2.4 Lvl) [facility]2021-08-10 09:30:00 Test Item Value Reference Range Interpretation Comments Phosphorus (test code = Phosphorus) 3.1 2.5-4.5 [facility] HospitalUzykblpGUCJXGZFIQ8415-59-50 09:30:00 Test Item Value Reference Range Interpretation Comments Segs (test code = Segs) 61.5 45.0-75.0 [place] 088951-08-10 09:30:00 Test Item Value Reference Range Interpretation Comments Lymphocytes (test code = Lymphocytes) 24.6 20.0-40.0 [place] 088951-08-10 09:30:00 Test Item Value Reference Range Interpretation Comments Monocytes (test code = Monocytes) 7.4 2.0-12.0 [place] 088951-08-10 09:30:00 Test Item Value Reference Range Interpretation Comments Eosinophils (test code = 5.5 See_Comment [A utomated message] The Eosinophils) system which ge nerated this result tra nsmitted reference range : <=4.0. The reference r leo was not used to int erpret this result as normal/abnormal . [facility] HospitalZdbubroTDRMUONOKT0352-37-91 09:30:00 Test Item Value Reference Range Interpretation Comments Basophils (test code = 1.0 See_Comment [Aut omated message] The Basophils) system which ge nerated this result tra nsmitted reference range : <=1.0. The reference r leo was not used to int erpret this result as normal/abnormal . [facility] HospitalNrqxlhzDBBNLPFEPE3071-97-61 09:30:00 Test Item Value Reference Range Interpretation Comments Neutrophils # (test code = Neutrophils 1.6 1.5-8.1 #) [place] 088951-08-10 09:30:00 Test Item Value Reference Range Interpretation Comments Lymphocytes # (test code = Lymphocytes 0.6 1.0-5.5 #) [place] 088951-08-10 09:30:00 Test Item Value Reference Range Interpretation Comments Monocytes # (test code 0.2 See_Comment [Aut omated message] The = Monocytes #) system which generated this result tra nsmitted reference range : <=0.8. The reference r leo was not used to int erpret this result as normal/abnormal . [facility] HospitalRpbkzdhJBUBTCKINO0398-55-15 09:30:00 Test Item Value Reference Range Interpretation Comments Eosinophils # (test code 0.1 See_Comment [A utomated message] The = Eosinophils #) system [id number] generated this result tra nsmitted reference range : <=0.5. The reference r leo was not used to int erpret this result as normal/abnormal . [place] 088951-08-10 09:30:00 Test Item Value Reference Range Interpretation [...] studies, if clinically indicated, are recommended. CPT: 23529 [facility] HospitalNbpbjyhVKEERNTZLS3547-23-35 09:30:00 Test Item Value Reference Range Interpretation Comments WBC (test code = WBC) 2.5 3.7-10.4 [place] 088951-08-10 09:30:00 Test Item Value Reference Range Interpretation Comments RBC (test code = RBC) 2.68 4.20-5.40 [place] 088951-08-10 09:30:00 Test Item Value Reference Range Interpretation Comments Hgb (test code = Hgb) 8.2 12.0-16.0 [place] [address]-08-10 09:30:00 Test Item Value Reference Range Interpretation Comments Hct (test code = Hct) 24.3 36.0-48.0 [place] [address]-08-10 09:30:00 Test Item Value Reference Range Interpretation Comments MCV (test code = MCV) 90.9 80.0-98.0 [place] [address]-08-10 09:30:00 Test Item Value Reference Range Interpretation Comments MCH (test code = MCH) 30.5 pg 27.0-31.0 [place] [address]-08-10 09:30:00 Test Item Value Reference Range Interpretation Comments MCHC (test code = MCHC) 33.6 32.0-36.0 [place] 088951-08-10 09:30:00 Test Item Value Reference Range Interpretation Comments RDW (test code = RDW) 19.4 11.5-14.5 [place] 088951-08-10 09:30:00 Test Item Value Reference Range Interpretation Comments Platelet (test code = Platelet) 70 133-450 [place] 088951-08-10 09:30:00 Test Item Value Reference Range Interpretation Comments MPV (test code = MPV) 10.7 7.4-10.4 [place] 322431-08-10 09:30:00 Test Item Value Reference Range Interpretation Comments Glucose Lvl (test code = Glucose Lvl) 61 70-99 [place] 322431-08-10 09:30:00 Test Item Value Reference Range Interpretation Comments BUN (test code = BUN) 13 7-22 [place] 322431-08-10 09:30:00 Test Item Value Reference Range Interpretation Comments Creatinine Lvl (test code = Creatinine 3.71 0.50-1.40 Lvl) [place] 322431-08-10 09:30:00 Test Item Value Reference Range Interpretation Comments Sodium Lvl (test code = Sodium Lvl) 136 135-145 [facility]2021-08-10 09:30:00 Test Item Value Reference Range Interpretation Comments Potassium Lvl (test code = Potassium 4.3 3.5-5.1 Lvl) [facility]2021-08-10 09:30:00 Test Item Value Reference Range Interpretation Comments Chloride Lvl (test code = Chloride Lvl) 103 95-109 [place] 322431-08-10 09:30:00 Test Item Value Reference Range Interpretation Comments CO2 (test code = CO2) 27 24-32 [place] 322431-08-10 09:30:00 Test Item Value Reference Range Interpretation Comments Calcium Lvl (test code = Calcium Lvl) 7.9 8.5-10.5 [facility]2021-08-10 09:30:00 Test Item Value Reference Range Interpretation Comments AGAP (test code = AGAP) 10.3 10.0-20.0 [place] 322431-08-10 09:30:00 Test Item Value Reference Range Interpretation Comments eGFR (test code = eGFR) 15 [place] [address]-08-10 09:30:00 Test Item Value Reference Range Interpretation Comments Magnesium Lvl (test code = Magnesium 2.3 1.8-2.4 Lvl) [place] 322431-08-10 09:30:00 Test Item Value Reference Range Interpretation Comments Phosphorus (test code = Phosphorus) 3.1 2.5-4.5 [place] [address]-08-10 09:30:00 Test Item Value Reference Range Interpretation Comments Segs (test code = Segs) 61.5 45.0-75.0 [place] [address]-08-10 09:30:00 Test Item Value Reference Range Interpretation Comments Lymphocytes (test code = Lymphocytes) 24.6 20.0-40.0 [place] [address]-08-10 09:30:00 Test Item Value Reference Range Interpretation Comments Monocytes (test code = Monocytes) 7.4 2.0-12.0 [place] 088951-08-10 09:30:00 Test Item Value Reference Range Interpretation Comments Eosinophils (test code = 5.5 See_Comment [A utomated message] The Eosinophils) system which ge nerated this result tra nsmitted reference range : <=4.0. The reference r leo was not used to int erpret this result as normal/abnormal . [place] 088951-08-10 09:30:00 Test Item Value Reference Range Interpretation Comments Basophils (test code = 1.0 See_Comment [Aut omated message] The Basophils) system which ge nerated this result tra nsmitted reference range : <=1.0. The reference r leo was not used to int erpret this result as normal/abnormal . [place] 088951-08-10 09:30:00 Test Item Value Reference Range Interpretation Comments Neutrophils # (test code = Neutrophils 1.6 1.5-8.1 #) [place] 088951-08-10 09:30:00 Test Item Value Reference Range Interpretation Comments Lymphocytes # (test code = Lymphocytes 0.6 1.0-5.5 #) [place] 088951-08-10 09:30:00 Test Item Value Reference Range Interpretation Comments Monocytes # (test code 0.2 See_Comment [Aut omated message] The = Monocytes #) system which generated this result tra nsmitted reference range : <=0.8. The reference r leo was not used to int erpret this result as normal/abnormal . [facility]HxfuukyBKKDSGVAZI9993-40-34 09:30:00 Test Item Value Reference Range Interpretation Comments Eosinophils # (test code 0.1 See_Comment [A utomated message] The = Eosinophils #) system whic h generated this result tra nsmitted reference range : <=0.5. The reference r leo was not used to int erpret this result as normal/abnormal . [facility] HospitalNqudbnzUPHPDTJYBC1583-13-90 09:30:00 Test Item Value Reference Range Interpretation [...] studies, if clinically indicated, are recommended. CPT: 86240 [facility] HospitalQyqerikTTVZZAVHNA1350-70-42 09:30:00 Test Item Value Reference Range Interpretation Comments WBC (test code = WBC) 2.5 3.7-10.4 [place] 088951-08-10 09:30:00 Test Item Value Reference Range Interpretation Comments RBC (test code = RBC) 2.68 4.20-5.40 [place] 088951-08-10 09:30:00 Test Item Value Reference Range Interpretation Comments Hgb (test code = Hgb) 8.2 12.0-16.0 [place] [address]-08-10 09:30:00 Test Item Value Reference Range Interpretation Comments Hct (test code = Hct) 24.3 36.0-48.0 [place] 088951-08-10 09:30:00 Test Item Value Reference Range Interpretation Comments MCV (test code = MCV) 90.9 80.0-98.0 [place] [address]-08-10 09:30:00 Test Item Value Reference Range Interpretation Comments MCH (test code = MCH) 30.5 pg 27.0-31.0 [facility] HospitalDhuwqslLIAFOZWQNZ5582-31-16 09:30:00 Test Item Value Reference Range Interpretation Comments MCHC (test code = MCHC) 33.6 32.0-36.0 [facility] HospitalOpisbdeADGPMUZGHS1532-23-47 09:30:00 Test Item Value Reference Range Interpretation Comments RDW (test code = RDW) 19.4 11.5-14.5 [place] 088951-08-10 09:30:00 Test Item Value Reference Range Interpretation Comments Platelet (test code = Platelet) 70 133-450 [place] 088951-08-10 09:30:00 Test Item Value Reference Range Interpretation Comments MPV (test code = MPV) 10.7 7.4-10.4 [facility]2021-08-09 05:10:00 Test Item Value Reference Range Interpretation Comments Glucose Lvl (test code = Glucose Lvl) 69 70-99 [facility]2021-08-09 05:10:00 Test Item Value Reference Range Interpretation Comments BUN (test code = BUN) 29 7-22 [place] 322431-08-09 05:10:00 Test Item Value Reference Range Interpretation Comments Creatinine Lvl (test code = Creatinine 5.14 0.50-1.40 Lvl) [place] 322431-08-09 05:10:00 Test Item Value Reference Range Interpretation Comments Sodium Lvl (test code = Sodium Lvl) 134 135-145 [place] 322431-08-09 05:10:00 Test Item Value Reference Range Interpretation Comments Potassium Lvl (test code = Potassium 5.1 3.5-5.1 Lvl) [place] 322431-08-09 05:10:00 Test Item Value Reference Range Interpretation Comments Chloride Lvl (test code = Chloride Lvl) 98 95-109 [facility]2021-08-09 05:10:00 Test Item Value Reference Range Interpretation Comments CO2 (test code = CO2) 29 24-32 [place] 322431-08-09 05:10:00 Test Item Value Reference Range Interpretation Comments Calcium Lvl (test code = Calcium Lvl) 7.6 8.5-10.5 [place] 322431-08-09 05:10:00 Test Item Value Reference Range Interpretation Comments AGAP (test code = AGAP) 12.1 10.0-20.0 [place] 322431-08-09 05:10:00 Test Item Value Reference Range Interpretation Comments eGFR (test code = eGFR) 10 [facility]2021-08-09 05:10:00 Test Item Value Reference Range Interpretation Comments Magnesium Lvl (test code = Magnesium 2.3 1.8-2.4 Lvl) [place] 322431-08-09 05:10:00 Test Item Value Reference Range Interpretation Comments Phosphorus (test code = Phosphorus) 5.0 2.5-4.5 [place] 088951-08-09 05:10:00 Test Item Value Reference Range Interpretation Comments WBC (test code = WBC) 2.7 3.7-10.4 [place] 088951-08-09 05:10:00 Test Item Value Reference Range Interpretation Comments RBC (test code = RBC) 2.80 4.20-5.40 [place] 088951-08-09 05:10:00 Test Item Value Reference Range Interpretation Comments Hgb (test code = Hgb) 8.5 12.0-16.0 [place] 088951-08-09 05:10:00 Test Item Value Reference Range Interpretation Comments Hct (test code = Hct) 25.7 36.0-48.0 [place] 088951-08-09 05:10:00 Test Item Value Reference Range Interpretation Comments MCV (test code = MCV) 91.7 80.0-98.0 [place] 088951-08-09 05:10:00 Test Item Value Reference Range Interpretation Comments MCH (test code = MCH) 30.4 pg 27.0-31.0 [place] 088951-08-09 05:10:00 Test Item Value Reference Range Interpretation Comments MCHC (test code = MCHC) 33.1 32.0-36.0 [place] [address]-08-09 05:10:00 Test Item Value Reference Range Interpretation Comments RDW (test code = RDW) 19.2 11.5-14.5 [place] 088951-08-09 05:10:00 Test Item Value Reference Range Interpretation Comments Platelet (test code = Platelet) 72 133-450 [facility]vactkPKQKXHXCZS5285-19-81 05:10:00 Test Item Value Reference Range Interpretation Comments MPV (test code = MPV) 9.9 7.4-10.4 [place] 088951-08-09 05:10:00 Test Item Value Reference Range Interpretation Comments Segs (test code = Segs) 72.6 45.0-75.0 [facility] HospitalAnncgdcRIIGEGFHPX3738-37-46 05:10:00 Test Item Value Reference Range Interpretation Comments Lymphocytes (test code = Lymphocytes) 15.9 20.0-40.0 [place] 088951-08-09 05:10:00 Test Item Value Reference Range Interpretation Comments Monocytes (test code = Monocytes) 7.3 2.0-12.0 [facility] HospitalLmgghakKKCHOBDZJZ4777-75-94 05:10:00 Test Item Value Reference Range Interpretation Comments Eosinophils (test code = 3.4 See_Comment [A utomated message] The Eosinophils) system which ge nerated this result tra nsmitted reference range : <=4.0. The reference r leo was not used to int erpret this result as normal/abnormal . [facility] HospitalHkaenjlBZHSVWQURP2226-70-86 05:10:00 Test Item Value Reference Range Interpretation Comments Basophils (test code = 0.8 See_Comment [Aut omated message] The Basophils) system which ge nerated this result tra nsmitted reference range : <=1.0. The reference r leo was not used to int erpret this result as normal/abnormal . [facility] HospitalIvishazVGYACGSVLP4328-01-85 05:10:00 Test Item Value Reference Range Interpretation Comments Neutrophils # (test code = Neutrophils 1.9 1.5-8.1 #) [facility] HospitalJogzzgcMXEFFZBRVM9565-54-93 05:10:00 Test Item Value Reference Range Interpretation Comments Lymphocytes # (test code = Lymphocytes 0.4 1.0-5.5 #) [facility] HospitalYcpqytcHZSTOOJGZF7615-75-99 05:10:00 Test Item Value Reference Range Interpretation Comments Monocytes # (test code 0.2 See_Comment [Aut omated message] The = Monocytes #) system which generated this result tra nsmitted reference range : <=0.8. The reference r leo was not used to int erpret this result as normal/abnormal . [facility] ResourcesFswcnatPCEKNCTOPR9438-44-08 05:10:00 Test Item Value Reference Range Interpretation Comments Eosinophils # (test code 0.1 See_Comment [A utomated message] The = Eosinophils #) system whic h generated this result tra nsmitted reference range : <=0.5. The reference r leo was not used to int erpret this result as normal/abnormal . [facility] QBGJWHN1567-78-41 05:10:00 Test Item Value Reference Range Interpretation Comments Ca Ion WB (test code = Ca Ion WB) 1.10 1.05-1.25 [facility] SVBBUVF6663-27-56 05:10:00 Test Item Value Reference Range Interpretation Comments Ca Norm WB (test code = Ca Norm WB) 1.06 1.05-1.25 [facility]2021-08-09 05:10:00 Test Item Value Reference Range Interpretation Comments Glucose Lvl (test code = Glucose Lvl) 69 70-99 [facility]2021-08-09 05:10:00 Test Item Value Reference Range Interpretation Comments BUN (test code = BUN) 29 7-22 [facility]2021-08-09 05:10:00 Test Item Value Reference Range Interpretation Comments Creatinine Lvl (test code = Creatinine 5.14 0.50-1.40 Lvl) [place] 322431-08-09 05:10:00 Test Item Value Reference Range Interpretation Comments Sodium Lvl (test code = Sodium Lvl) 134 135-145 [facility]2021-08-09 05:10:00 Test Item Value Reference Range Interpretation Comments Potassium Lvl (test code = Potassium 5.1 3.5-5.1 Lvl) [facility]2021-08-09 05:10:00 Test Item Value Reference Range Interpretation Comments Chloride Lvl (test code = Chloride Lvl) 98 95-109 [facility]2021-08-09 05:10:00 Test Item Value Reference Range Interpretation Comments CO2 (test code = CO2) 29 24-32 [place] 322431-08-09 05:10:00 Test Item Value Reference Range Interpretation Comments Calcium Lvl (test code = Calcium Lvl) 7.6 8.5-10.5 [place] 322431-08-09 05:10:00 Test Item Value Reference Range Interpretation Comments AGAP (test code = AGAP) 12.1 10.0-20.0 [place] 322431-08-09 05:10:00 Test Item Value Reference Range Interpretation Comments eGFR (test code = eGFR) 10 [facility]2021-08-09 05:10:00 Test Item Value Reference Range Interpretation Comments Magnesium Lvl (test code = Magnesium 2.3 1.8-2.4 Lvl) [place] 322431-08-09 05:10:00 Test Item Value Reference Range Interpretation Comments Phosphorus (test code = Phosphorus) 5.0 2.5-4.5 [place] 088951-08-09 05:10:00 Test Item Value Reference Range Interpretation Comments WBC (test code = WBC) 2.7 3.7-10.4 [place] 088951-08-09 05:10:00 Test Item Value Reference Range Interpretation Comments RBC (test code = RBC) 2.80 4.20-5.40 [place] 088951-08-09 05:10:00 Test Item Value Reference Range Interpretation Comments Hgb (test code = Hgb) 8.5 12.0-16.0 [place] 088951-08-09 05:10:00 Test Item Value Reference Range Interpretation Comments Hct (test code = Hct) 25.7 36.0-48.0 [place] 088951-08-09 05:10:00 Test Item Value Reference Range Interpretation Comments MCV (test code = MCV) 91.7 80.0-98.0 [place] 088951-08-09 05:10:00 Test Item Value Reference Range Interpretation Comments MCH (test code = MCH) 30.4 pg 27.0-31.0 [place] 088951-08-09 05:10:00 Test Item Value Reference Range Interpretation Comments MCHC (test code = MCHC) 33.1 32.0-36.0 [place] [address]-08-09 05:10:00 Test Item Value Reference Range Interpretation Comments RDW (test code = RDW) 19.2 11.5-14.5 [place] 088951-08-09 05:10:00 Test Item Value Reference Range Interpretation Comments Platelet (test code = Platelet) 72 133-450 [facility] HospitalZfxkjgpHJBIDLBDIL5685-30-42 05:10:00 Test Item Value Reference Range Interpretation Comments MPV (test code = MPV) 9.9 7.4-10.4 [place] 088951-08-09 05:10:00 Test Item Value Reference Range Interpretation Comments Segs (test code = Segs) 72.6 45.0-75.0 [facility] HospitalDuvgdivNOLLUWGGEP0604-07-25 05:10:00 Test Item Value Reference Range Interpretation Comments Lymphocytes (test code = Lymphocytes) 15.9 20.0-40.0 [place] 088951-08-09 05:10:00 Test Item Value Reference Range Interpretation Comments Monocytes (test code = Monocytes) 7.3 2.0-12.0 [facility] HospitalDimalpmDFCYGVRUID9411-04-56 05:10:00 Test Item Value Reference Range Interpretation Comments Eosinophils (test code = 3.4 See_Comment [A utomated message] The Eosinophils) system which ge nerated this result tra nsmitted reference range : <=4.0. The reference r leo was not used to int erpret this result as normal/abnormal . [facility] HospitalHrrktubUWNOOEKZBF7076-47-71 05:10:00 Test Item Value Reference Range Interpretation Comments Basophils (test code = 0.8 See_Comment [Aut omated message] The Basophils) system which ge nerated this result tra nsmitted reference range : <=1.0. The reference r leo was not used to int erpret this result as normal/abnormal . [facility] HospitalPrqhdgcSXYFBCYRDW8013-79-64 05:10:00 Test Item Value Reference Range Interpretation Comments Neutrophils # (test code = Neutrophils 1.9 1.5-8.1 #) [facility] HospitalTgzglcoYHYWSHEHYM6586-72-94 05:10:00 Test Item Value Reference Range Interpretation Comments Lymphocytes # (test code = Lymphocytes 0.4 1.0-5.5 #) [facility] HospitalMlvapjcTJTOFEFMVY6596-55-93 05:10:00 Test Item Value Reference Range Interpretation Comments Monocytes # (test code 0.2 See_Comment [Aut omated message] The = Monocytes #) system which generated this result tra nsmitted reference range : <=0.8. The reference r leo was not used to int erpret this result as normal/abnormal . [facility] ResourcesLvkqsaxBLWAHMEXUL9904-44-51 05:10:00 Test Item Value Reference Range Interpretation Comments Eosinophils # (test code 0.1 See_Comment [A utomated message] The = Eosinophils #) system whic h generated this result tra nsmitted reference range : <=0.5. The reference r leo was not used to int erpret this result as normal/abnormal . [facility]ATH[facility] SIYQHWD6635-50-62 05:10:00 Test Item Value Reference Range Interpretation Comments Ca Ion WB (test code = Ca Ion WB) 1.10 1.05-1.25 [facility]RO[facility] DCYZCKD0313-89-87 05:10:00 Test Item Value Reference Range Interpretation Comments Ca Norm WB (test code = Ca Norm WB) 1.06 1.05-1.25 [facility]2021-08-09 05:10:00 Test Item Value Reference Range Interpretation Comments Glucose Lvl (test code = Glucose Lvl) 69 70-99 [facility]2021-08-09 05:10:00 Test Item Value Reference Range Interpretation Comments BUN (test code = BUN) 29 7-22 [facility]2021-08-09 05:10:00 Test Item Value Reference Range Interpretation Comments Creatinine Lvl (test code = Creatinine 5.14 0.50-1.40 Lvl) [place] 322431-08-09 05:10:00 Test Item Value Reference Range Interpretation Comments Sodium Lvl (test code = Sodium Lvl) 134 135-145 [facility]2021-08-09 05:10:00 Test Item Value Reference Range Interpretation Comments Potassium Lvl (test code = Potassium 5.1 3.5-5.1 Lvl) [facility]2021-08-09 05:10:00 Test Item Value Reference Range Interpretation Comments Chloride Lvl (test code = Chloride Lvl) 98 95-109 [facility]2021-08-09 05:10:00 Test Item Value Reference Range Interpretation Comments CO2 (test code = CO2) 29 24-32 [place] 322431-08-09 05:10:00 Test Item Value Reference Range Interpretation Comments Calcium Lvl (test code = Calcium Lvl) 7.6 8.5-10.5 [place] 322431-08-09 05:10:00 Test Item Value Reference Range Interpretation Comments AGAP (test code = AGAP) 12.1 10.0-20.0 [place] 322431-08-09 05:10:00 Test Item Value Reference Range Interpretation Comments eGFR (test code = eGFR) 10 [facility]2021-08-09 05:10:00 Test Item Value Reference Range Interpretation Comments Magnesium Lvl (test code = Magnesium 2.3 1.8-2.4 Lvl) [place] 322431-08-09 05:10:00 Test Item Value Reference Range Interpretation Comments Phosphorus (test code = Phosphorus) 5.0 2.5-4.5 [place] 088951-08-09 05:10:00 Test Item Value Reference Range Interpretation Comments WBC (test code = WBC) 2.7 3.7-10.4 [place] 088951-08-09 05:10:00 Test Item Value Reference Range Interpretation Comments RBC (test code = RBC) 2.80 4.20-5.40 [place] 088951-08-09 05:10:00 Test Item Value Reference Range Interpretation Comments Hgb (test code = Hgb) 8.5 12.0-16.0 [place] 088951-08-09 05:10:00 Test Item Value Reference Range Interpretation Comments Hct (test code = Hct) 25.7 36.0-48.0 [place] 088951-08-09 05:10:00 Test Item Value Reference Range Interpretation Comments MCV (test code = MCV) 91.7 80.0-98.0 [place] 088951-08-09 05:10:00 Test Item Value Reference Range Interpretation Comments MCH (test code = MCH) 30.4 pg 27.0-31.0 [place] 088951-08-09 05:10:00 Test Item Value Reference Range Interpretation Comments MCHC (test code = MCHC) 33.1 32.0-36.0 [place] [address]-08-09 05:10:00 Test Item Value Reference Range Interpretation Comments RDW (test code = RDW) 19.2 11.5-14.5 [place] 088951-08-09 05:10:00 Test Item Value Reference Range Interpretation Comments Platelet (test code = Platelet) 72 133-450 [facility] HospitalDtlojmaSSPRZFXJTF0535-05-61 05:10:00 Test Item Value Reference Range Interpretation Comments MPV (test code = MPV) 9.9 7.4-10.4 [place] 088951-08-09 05:10:00 Test Item Value Reference Range Interpretation Comments Segs (test code = Segs) 72.6 45.0-75.0 [facility] HospitalKvnvkioVKVTPNJQGA2778-04-93 05:10:00 Test Item Value Reference Range Interpretation Comments Lymphocytes (test code = Lymphocytes) 15.9 20.0-40.0 [place] 088951-08-09 05:10:00 Test Item Value Reference Range Interpretation Comments Monocytes (test code = Monocytes) 7.3 2.0-12.0 [facility] HospitalDzvhzpsGBCLBWKDPO9814-26-42 05:10:00 Test Item Value Reference Range Interpretation Comments Eosinophils (test code = 3.4 See_Comment [A utomated message] The Eosinophils) system which ge nerated this result tra nsmitted reference range : <=4.0. The reference r leo was not used to int erpret this result as normal/abnormal . [facility] HospitalGmbtzgjUELGBPLTWR1684-29-68 05:10:00 Test Item Value Reference Range Interpretation Comments Basophils (test code = 0.8 See_Comment [Aut omated message] The Basophils) system which ge nerated this result tra nsmitted reference range : <=1.0. The reference r leo was not used to int erpret this result as normal/abnormal . [facility] HospitalVjafmskXKAOUVQOYL7281-50-00 05:10:00 Test Item Value Reference Range Interpretation Comments Neutrophils # (test code = Neutrophils 1.9 1.5-8.1 #) [facility] HospitalElwsrcsNCITTGPXZV7465-11-23 05:10:00 Test Item Value Reference Range Interpretation Comments Lymphocytes # (test code = Lymphocytes 0.4 1.0-5.5 #) [facility] HospitalFisaswaCXMYBLJHUA5359-09-69 05:10:00 Test Item Value Reference Range Interpretation Comments Monocytes # (test code 0.2 See_Comment [Aut omated message] The = Monocytes #) system which generated this result tra nsmitted reference range : <=0.8. The reference r leo was not used to int erpret this result as normal/abnormal . [facility] ResourcesHanwlhzPHKDSFWHSI7375-82-43 05:10:00 Test Item Value Reference Range Interpretation Comments Eosinophils # (test code 0.1 See_Comment [A utomated message] The = Eosinophils #) system whic h generated this result tra nsmitted reference range : <=0.5. The reference r leo was not used to int erpret this result as normal/abnormal . [facility]ATHY[facility]ID SMFQCJD4992-61-62 05:10:00 Test Item Value Reference Range Interpretation Comments Ca Ion WB (test code = Ca Ion WB) 1.10 1.05-1.25 [facility] CKFQGCI7396-25-86 05:10:00 Test Item Value Reference Range Interpretation Comments Ca Norm WB (test code = Ca Norm WB) 1.06 1.05-1.25 [facility]2021-08-09 05:10:00 Test Item Value Reference Range Interpretation Comments Glucose Lvl (test code = Glucose Lvl) 69 70-99 [facility]2021-08-09 05:10:00 Test Item Value Reference Range Interpretation Comments BUN (test code = BUN) 29 7-22 [facility]2021-08-09 05:10:00 Test Item Value Reference Range Interpretation Comments Creatinine Lvl (test code = Creatinine 5.14 0.50-1.40 Lvl) [place] 322431-08-09 05:10:00 Test Item Value Reference Range Interpretation Comments Sodium Lvl (test code = Sodium Lvl) 134 135-145 [facility]2021-08-09 05:10:00 Test Item Value Reference Range Interpretation Comments Potassium Lvl (test code = Potassium 5.1 3.5-5.1 Lvl) [facility]2021-08-09 05:10:00 Test Item Value Reference Range Interpretation Comments Chloride Lvl (test code = Chloride Lvl) 98 95-109 [facility]2021-08-09 05:10:00 Test Item Value Reference Range Interpretation Comments CO2 (test code = CO2) 29 24-32 [place] 322431-08-09 05:10:00 Test Item Value Reference Range Interpretation Comments Calcium Lvl (test code = Calcium Lvl) 7.6 8.5-10.5 [place] 322431-08-09 05:10:00 Test Item Value Reference Range Interpretation Comments AGAP (test code = AGAP) 12.1 10.0-20.0 [place] 322431-08-09 05:10:00 Test Item Value Reference Range Interpretation Comments eGFR (test code = eGFR) 10 [facility]2021-08-09 05:10:00 Test Item Value Reference Range Interpretation Comments Magnesium Lvl (test code = Magnesium 2.3 1.8-2.4 Lvl) [place] 322431-08-09 05:10:00 Test Item Value Reference Range Interpretation Comments Phosphorus (test code = Phosphorus) 5.0 2.5-4.5 [place] 088951-08-09 05:10:00 Test Item Value Reference Range Interpretation Comments WBC (test code = WBC) 2.7 3.7-10.4 [place] 088951-08-09 05:10:00 Test Item Value Reference Range Interpretation Comments RBC (test code = RBC) 2.80 4.20-5.40 [place] 088951-08-09 05:10:00 Test Item Value Reference Range Interpretation Comments Hgb (test code = Hgb) 8.5 12.0-16.0 [place] 088951-08-09 05:10:00 Test Item Value Reference Range Interpretation Comments Hct (test code = Hct) 25.7 36.0-48.0 [place] 088951-08-09 05:10:00 Test Item Value Reference Range Interpretation Comments MCV (test code = MCV) 91.7 80.0-98.0 [place] 088951-08-09 05:10:00 Test Item Value Reference Range Interpretation Comments MCH (test code = MCH) 30.4 pg 27.0-31.0 [place] 088951-08-09 05:10:00 Test Item Value Reference Range Interpretation Comments MCHC (test code = MCHC) 33.1 32.0-36.0 [place] [address]-08-09 05:10:00 Test Item Value Reference Range Interpretation Comments RDW (test code = RDW) 19.2 11.5-14.5 [place] 088951-08-09 05:10:00 Test Item Value Reference Range Interpretation Comments Platelet (test code = Platelet) 72 133-450 [facility] HospitalXtixdntRQLWKBURSX1375-63-13 05:10:00 Test Item Value Reference Range Interpretation Comments MPV (test code = MPV) 9.9 7.4-10.4 [place] 088951-08-09 05:10:00 Test Item Value Reference Range Interpretation Comments Segs (test code = Segs) 72.6 45.0-75.0 [facility] HospitalXnueeiiPQVAWAIASY5749-62-83 05:10:00 Test Item Value Reference Range Interpretation Comments Lymphocytes (test code = Lymphocytes) 15.9 20.0-40.0 [place] 088951-08-09 05:10:00 Test Item Value Reference Range Interpretation Comments Monocytes (test code = Monocytes) 7.3 2.0-12.0 [facility] HospitalRhtykloUWVZIUUXMY2941-82-81 05:10:00 Test Item Value Reference Range Interpretation Comments Eosinophils (test code = 3.4 See_Comment [A utomated message] The Eosinophils) system which ge nerated this result tra nsmitted reference range : <=4.0. The reference r leo was not used to int erpret this result as normal/abnormal . [facility] HospitalWuqejoeAPJKMODQCP2210-16-55 05:10:00 Test Item Value Reference Range Interpretation Comments Basophils (test code = 0.8 See_Comment [Aut omated message] The Basophils) system which ge nerated this result tra nsmitted reference range : <=1.0. The reference r leo was not used to int erpret this result as normal/abnormal . [facility] HospitalRnlunppRQXBZFOISP6351-56-05 05:10:00 Test Item Value Reference Range Interpretation Comments Neutrophils # (test code = Neutrophils 1.9 1.5-8.1 #) [facility] HospitalAsfzyeiZGWTNPGVAZ8806-36-18 05:10:00 Test Item Value Reference Range Interpretation Comments Lymphocytes # (test code = Lymphocytes 0.4 1.0-5.5 #) [facility] HospitalHndoqisABMRKYIEIS6996-24-76 05:10:00 Test Item Value Reference Range Interpretation Comments Monocytes # (test code 0.2 See_Comment [Aut omated message] The = Monocytes #) system which generated this result tra nsmitted reference range : <=0.8. The reference r leo was not used to int erpret this result as normal/abnormal . [facility] ResourcesTyrreuoCIQAXCDAVL5407-73-83 05:10:00 Test Item Value Reference Range Interpretation Comments Eosinophils # (test code 0.1 See_Comment [A utomated message] The = Eosinophils #) system whic h generated this result tra nsmitted reference range : <=0.5. The reference r leo was not used to int erpret this result as normal/abnormal . [facility] YGRAIWY9123-78-16 05:10:00 Test Item Value Reference Range Interpretation Comments Ca Ion WB (test code = Ca Ion WB) 1.10 1.05-1.25 [facility] ZYDDVNS0704-20-51 05:10:00 Test Item Value Reference Range Interpretation Comments Ca Norm WB (test code = Ca Norm WB) 1.06 1.05-1.25 [facility]2021-08-09 05:10:00 Test Item Value Reference Range Interpretation Comments Glucose Lvl (test code = Glucose Lvl) 69 70-99 [facility]2021-08-09 05:10:00 Test Item Value Reference Range Interpretation Comments BUN (test code = BUN) 29 7-22 [facility]2021-08-09 05:10:00 Test Item Value Reference Range Interpretation Comments Creatinine Lvl (test code = Creatinine 5.14 0.50-1.40 Lvl) [place] 322431-08-09 05:10:00 Test Item Value Reference Range Interpretation Comments Sodium Lvl (test code = Sodium Lvl) 134 135-145 [facility]2021-08-09 05:10:00 Test Item Value Reference Range Interpretation Comments Potassium Lvl (test code = Potassium 5.1 3.5-5.1 Lvl) [facility]2021-08-09 05:10:00 Test Item Value Reference Range Interpretation Comments Chloride Lvl (test code = Chloride Lvl) 98 95-109 [facility]2021-08-09 05:10:00 Test Item Value Reference Range Interpretation Comments CO2 (test code = CO2) 29 24-32 [place] 322431-08-09 05:10:00 Test Item Value Reference Range Interpretation Comments Calcium Lvl (test code = Calcium Lvl) 7.6 8.5-10.5 [place] 322431-08-09 05:10:00 Test Item Value Reference Range Interpretation Comments AGAP (test code = AGAP) 12.1 10.0-20.0 [place] 322431-08-09 05:10:00 Test Item Value Reference Range Interpretation Comments eGFR (test code = eGFR) 10 [facility]2021-08-09 05:10:00 Test Item Value Reference Range Interpretation Comments Magnesium Lvl (test code = Magnesium 2.3 1.8-2.4 Lvl) [place] 322431-08-09 05:10:00 Test Item Value Reference Range Interpretation Comments Phosphorus (test code = Phosphorus) 5.0 2.5-4.5 [place] 088951-08-09 05:10:00 Test Item Value Reference Range Interpretation Comments WBC (test code = WBC) 2.7 3.7-10.4 [place] 088951-08-09 05:10:00 Test Item Value Reference Range Interpretation Comments RBC (test code = RBC) 2.80 4.20-5.40 [place] 088951-08-09 05:10:00 Test Item Value Reference Range Interpretation Comments Hgb (test code = Hgb) 8.5 12.0-16.0 [place] 088951-08-09 05:10:00 Test Item Value Reference Range Interpretation Comments Hct (test code = Hct) 25.7 36.0-48.0 [place] 088951-08-09 05:10:00 Test Item Value Reference Range Interpretation Comments MCV (test code = MCV) 91.7 80.0-98.0 [place] 088951-08-09 05:10:00 Test Item Value Reference Range Interpretation Comments MCH (test code = MCH) 30.4 pg 27.0-31.0 [place] 088951-08-09 05:10:00 Test Item Value Reference Range Interpretation Comments MCHC (test code = MCHC) 33.1 32.0-36.0 [place] [address]-08-09 05:10:00 Test Item Value Reference Range Interpretation Comments RDW (test code = RDW) 19.2 11.5-14.5 [place] 088951-08-09 05:10:00 Test Item Value Reference Range Interpretation Comments Platelet (test code = Platelet) 72 133-450 [facility]haiareNFQYHCBFOQ7448-14-30 05:10:00 Test Item Value Reference Range Interpretation Comments MPV (test code = MPV) 9.9 7.4-10.4 [place] 088951-08-09 05:10:00 Test Item Value Reference Range Interpretation Comments Segs (test code = Segs) 72.6 45.0-75.0 [facility] HospitalMrpjxpzNBBXAINFXC0256-44-07 05:10:00 Test Item Value Reference Range Interpretation Comments Lymphocytes (test code = Lymphocytes) 15.9 20.0-40.0 [place] 088951-08-09 05:10:00 Test Item Value Reference Range Interpretation Comments Monocytes (test code = Monocytes) 7.3 2.0-12.0 [facility] HospitalLyijvbhJBMGXVXZFV3042-35-00 05:10:00 Test Item Value Reference Range Interpretation Comments Eosinophils (test code = 3.4 See_Comment [A utomated message] The Eosinophils) system which ge nerated this result tra nsmitted reference range : <=4.0. The reference r leo was not used to int erpret this result as normal/abnormal . [facility] HospitalMfkrvtwKMZCPQFTSJ5832-27-15 05:10:00 Test Item Value Reference Range Interpretation Comments Basophils (test code = 0.8 See_Comment [Aut omated message] The Basophils) system which ge nerated this result tra nsmitted reference range : <=1.0. The reference r leo was not used to int erpret this result as normal/abnormal . [facility] HospitalYpdjgijDBRVTSSGIS1951-20-58 05:10:00 Test Item Value Reference Range Interpretation Comments Neutrophils # (test code = Neutrophils 1.9 1.5-8.1 #) [facility] HospitalZhojyckQKAQDBDOOS0575-77-40 05:10:00 Test Item Value Reference Range Interpretation Comments Lymphocytes # (test code = Lymphocytes 0.4 1.0-5.5 #) [facility] HospitalBbjsepnNBXPXAHPBF0860-93-14 05:10:00 Test Item Value Reference Range Interpretation Comments Monocytes # (test code 0.2 See_Comment [Aut omated message] The = Monocytes #) system which generated this result tra nsmitted reference range : <=0.8. The reference r leo was not used to int erpret this result as normal/abnormal . [facility] ResourcesLkfsufaBPXQDJQKUU3791-16-69 05:10:00 Test Item Value Reference Range Interpretation Comments Eosinophils # (test code 0.1 See_Comment [A utomated message] The = Eosinophils #) system [email or web address] generated this result tra nsmitted reference range : <=0.5. The reference r leo was not used to int erpret this result as normal/abnormal . [facility] ResourcesPARATHYROID [id number] 05:10:00 Test Item Value Reference Range Interpretation Comments Ca Ion WB (test code = Ca Ion WB) 1.10 1.05-1.25 [facility] [id number] 05:10:00 Test Item Value Reference Range Interpretation Comments Ca Norm WB (test code = Ca Norm WB) 1.06 1.05-1.25 [facility] [id number] 18:36:00 Test Item Value Reference Range Interpretation Comments C difficile DNA (test Negative (01/26/21 1:36 code = C difficile DNA) PM) [facility] [id number] 18:36:00 Test Item Value Reference Range Interpretation Comments C difficile DNA (test Negative (01/26/21 1:36 code = C difficile DNA) PM) [facility] [id number] 18:36:00 Test Item Value Reference Range Interpretation Comments C difficile DNA (test Negative (01/26/21 1:36 code = C difficile DNA) PM) [facility] [id number] 18:36:00 Test Item Value Reference Range Interpretation Comments C difficile DNA (test Negative (01/26/21 1:36 code = C difficile DNA) PM) [facility] [id number] 18:36:00 Test Item Value Reference Range Interpretation Comments C difficile DNA (test Negative (01/26/21 1:36 code = C difficile DNA) PM) [facility] [id number] 07:33:00 Test Item Value Reference Range Interpretation Comments Ca Ion WB (test code = Ca Ion WB) 1.12 1.05-1.25 [facility]PAR[facility]YROID [id number] 07:33:00 Test Item Value Reference Range Interpretation Comments Ca Norm WB (test code = Ca Norm WB) 1.07 1.05-1.25 [facility]annB[facility] CENTERATHYROID [id number] 07:33:00 Test Item Value Reference Range Interpretation Comments Ca Ion WB (test code = Ca Ion WB) 1.12 1.05-1.25 [facility]2021-08-08 07:33:00 Test Item Value Reference Range Interpretation Comments Ca Norm WB (test code = Ca Norm WB) 1.07 1.05-1.25 [place] 013521-08-08 07:33:00 Test Item Value Reference Range Interpretation Comments Ca Ion WB (test code = Ca Ion WB) 1.12 1.05-1.25 [place] 013521-08-08 07:33:00 Test Item Value Reference Range Interpretation Comments Ca Norm WB (test code = Ca Norm WB) 1.07 1.05-1.25 [facility]2021-08-08 07:33:00 Test Item Value Reference Range Interpretation Comments Ca Ion WB (test code = Ca Ion WB) 1.12 1.05-1.25 [facility]2021-08-08 07:33:00 Test Item Value Reference Range Interpretation Comments Ca Norm WB (test code = Ca Norm WB) 1.07 1.05-1.25 [facility]2021-08-08 07:33:00 Test Item Value Reference Range Interpretation Comments Ca Ion WB (test code = Ca Ion WB) 1.12 1.05-1.25 [place] 013521-08-08 07:33:00 Test Item Value Reference Range Interpretation Comments Ca Norm WB (test code = Ca Norm WB) 1.07 1.05-1.25 [facility]2021-08-08 07:30:00 Test Item Value Reference Range Interpretation Comments Glucose Lvl (test code = Glucose Lvl) 65 70-99 [facility]2021-08-08 07:30:00 Test Item Value Reference Range Interpretation Comments BUN (test code = BUN) 21 7-22 [place] 322431-08-08 07:30:00 Test Item Value Reference Range Interpretation Comments Creatinine Lvl (test code = Creatinine 4.18 0.50-1.40 Lvl) [place] 322431-08-08 07:30:00 Test Item Value Reference Range Interpretation Comments Sodium Lvl (test code = Sodium Lvl) 136 135-145 [place] 322431-08-08 07:30:00 Test Item Value Reference Range Interpretation Comments Potassium Lvl (test code = Potassium 4.5 3.5-5.1 Lvl) [place] 322431-08-08 07:30:00 Test Item Value Reference Range Interpretation Comments Chloride Lvl (test code = Chloride Lvl) 99 95-109 [place] 322431-08-08 07:30:00 Test Item Value Reference Range Interpretation Comments CO2 (test code = CO2) 31 24-32 [place] 322431-08-08 07:30:00 Test Item Value Reference Range Interpretation Comments AGAP (test code = AGAP) 10.5 10.0-20.0 [place] 322431-08-08 07:30:00 Test Item Value Reference Range Interpretation Comments Calcium Lvl (test code = Calcium Lvl) 7.9 8.5-10.5 [place] 322431-08-08 07:30:00 Test Item Value Reference Range Interpretation Comments eGFR (test code = eGFR) 13 [place] 322431-08-08 07:30:00 Test Item Value Reference Range Interpretation Comments Magnesium Lvl (test code = Magnesium 2.2 1.8-2.4 Lvl) [place] 322431-08-08 07:30:00 Test Item Value Reference Range Interpretation Comments Phosphorus (test code = Phosphorus) 4.4 2.5-4.5 [place] 088951-08-08 07:30:00 Test Item Value Reference Range Interpretation Comments WBC (test code = WBC) 2.3 3.7-10.4 [place] 088951-08-08 07:30:00 Test Item Value Reference Range Interpretation Comments RBC (test code = RBC) 2.88 4.20-5.40 [place] [address]-08-08 07:30:00 Test Item Value Reference Range Interpretation Comments Hgb (test code = Hgb) 8.6 12.0-16.0 [place] 088951-08-08 07:30:00 Test Item Value Reference Range Interpretation Comments Hct (test code = Hct) 26.6 36.0-48.0 [place] 088951-08-08 07:30:00 Test Item Value Reference Range Interpretation Comments MCV (test code = MCV) 92.2 80.0-98.0 [place] 088951-08-08 07:30:00 Test Item Value Reference Range Interpretation Comments MCH (test code = MCH) 29.8 pg 27.0-31.0 [place] 088951-08-08 07:30:00 Test Item Value Reference Range Interpretation Comments MCHC (test code = MCHC) 32.4 32.0-36.0 [facility] HospitalYlxtygmAQGCDLJNSF9270-00-26 07:30:00 Test Item Value Reference Range Interpretation Comments RDW (test code = RDW) 19.7 11.5-14.5 [place] 088951-08-08 07:30:00 Test Item Value Reference Range Interpretation Comments Platelet (test code = Platelet) 83 133-450 [facility] HospitalTftkedtXXVZCFUBUX2130-32-52 07:30:00 Test Item Value Reference Range Interpretation Comments MPV (test code = MPV) 10.2 7.4-10.4 [facility] HospitalLepgouoSTHTTJWQEO1706-84-31 07:30:00 Test Item Value Reference Range Interpretation Comments Segs (test code = Segs) 64.0 45.0-75.0 [facility] HospitalVrhdfuuJYAADKJSTE5770-53-87 07:30:00 Test Item Value Reference Range Interpretation Comments Lymphocytes (test code = Lymphocytes) 24.1 20.0-40.0 [place] 088951-08-08 07:30:00 Test Item Value Reference Range Interpretation Comments Monocytes (test code = Monocytes) 7.0 2.0-12.0 [place] 088951-08-08 07:30:00 Test Item Value Reference Range Interpretation Comments Eosinophils (test code = 3.7 See_Comment [A utomated message] The Eosinophils) system which ge nerated this result tra nsmitted reference range : <=4.0. The reference r leo was not used to int erpret this result as normal/abnormal . [facility] HospitalUufudwfFUMBBPGTQF3879-07-93 07:30:00 Test Item Value Reference Range Interpretation Comments Basophils (test code = 1.2 See_Comment [Aut omated message] The Basophils) system which ge nerated this result tra nsmitted reference range : <=1.0. The reference r leo was not used to int erpret this result as normal/abnormal . [place] 088951-08-08 07:30:00 Test Item Value Reference Range Interpretation Comments Neutrophils # (test code = Neutrophils 1.5 1.5-8.1 #) [facility] HospitalPphbytoACSBNCGHRY7489-70-47 07:30:00 Test Item Value Reference Range Interpretation Comments Lymphocytes # (test code = Lymphocytes 0.6 1.0-5.5 #) [facility] HospitalQdqndtjAVHRPGBMSR6388-70-44 07:30:00 Test Item Value Reference Range Interpretation Comments Monocytes # (test code 0.2 See_Comment [Aut omated message] The = Monocytes #) system which generated this result tra nsmitted reference range : <=0.8. The reference r leo was not used to int erpret this result as normal/abnormal . [place] 088951-08-08 07:30:00 Test Item Value Reference Range Interpretation Comments Eosinophils # (test code 0.1 See_Comment [A utomated message] The = Eosinophils #) system whic h generated this result tra nsmitted reference range : <=0.5. The reference r leo was not used to int erpret this result as normal/abnormal . [facility]2021-08-08 07:30:00 Test Item Value Reference Range Interpretation Comments Glucose Lvl (test code = Glucose Lvl) 65 70-99 [facility] ResourcesMachine Perception Technologies [id number] 07:30:00 Test Item Value Reference Range Interpretation Comments BUN (test code = BUN) 21 7-22 [place] 322431-08-08 07:30:00 Test Item Value Reference Range Interpretation Comments Creatinine Lvl (test code = Creatinine 4.18 0.50-1.40 Lvl) [place] 322431-08-08 07:30:00 Test Item Value Reference Range Interpretation Comments Sodium Lvl (test code = Sodium Lvl) 136 135-145 [place] 322431-08-08 07:30:00 Test Item Value Reference Range Interpretation Comments Potassium Lvl (test code = Potassium 4.5 3.5-5.1 Lvl) [place] 322431-08-08 07:30:00 Test Item Value Reference Range Interpretation Comments Chloride Lvl (test code = Chloride Lvl) 99 95-109 [place] 322431-08-08 07:30:00 Test Item Value Reference Range Interpretation Comments CO2 (test code = CO2) 31 24-32 [place] 322431-08-08 07:30:00 Test Item Value Reference Range Interpretation Comments AGAP (test code = AGAP) 10.5 10.0-20.0 [place] 322431-08-08 07:30:00 Test Item Value Reference Range Interpretation Comments Calcium Lvl (test code = Calcium Lvl) 7.9 8.5-10.5 [place] 322431-08-08 07:30:00 Test Item Value Reference Range Interpretation Comments eGFR (test code = eGFR) 13 [place] 322431-08-08 07:30:00 Test Item Value Reference Range Interpretation Comments Magnesium Lvl (test code = Magnesium 2.2 1.8-2.4 Lvl) [place] 322431-08-08 07:30:00 Test Item Value Reference Range Interpretation Comments Phosphorus (test code = Phosphorus) 4.4 2.5-4.5 [place] 088951-08-08 07:30:00 Test Item Value Reference Range Interpretation Comments WBC (test code = WBC) 2.3 3.7-10.4 [place] 088951-08-08 07:30:00 Test Item Value Reference Range Interpretation Comments RBC (test code = RBC) 2.88 4.20-5.40 [place] 088951-08-08 07:30:00 Test Item Value Reference Range Interpretation Comments Hgb (test code = Hgb) 8.6 12.0-16.0 [place] [address]-08-08 07:30:00 Test Item Value Reference Range Interpretation Comments Hct (test code = Hct) 26.6 36.0-48.0 [place] 088951-08-08 07:30:00 Test Item Value Reference Range Interpretation Comments MCV (test code = MCV) 92.2 80.0-98.0 [place] [address]-08-08 07:30:00 Test Item Value Reference Range Interpretation Comments MCH (test code = MCH) 29.8 pg 27.0-31.0 [facility] HospitalAdmfzsvBIVACJUZPV0319-20-18 07:30:00 Test Item Value Reference Range Interpretation Comments MCHC (test code = MCHC) 32.4 32.0-36.0 [facility] HospitalNuknyciXHNGUJDTDR4143-36-75 07:30:00 Test Item Value Reference Range Interpretation Comments RDW (test code = RDW) 19.7 11.5-14.5 [facility] HospitalBfagytwRYJSFMBGDM6806-16-17 07:30:00 Test Item Value Reference Range Interpretation Comments Platelet (test code = Platelet) 83 133-450 [facility] HospitalZlepcvbOHVOTQJGHF2547-18-89 07:30:00 Test Item Value Reference Range Interpretation Comments MPV (test code = MPV) 10.2 7.4-10.4 [facility] HospitalGfluhvuTVPDHJTKRF1461-38-02 07:30:00 Test Item Value Reference Range Interpretation Comments Segs (test code = Segs) 64.0 45.0-75.0 [facility] HospitalVuykzxjDDXJYWDLXS9528-58-69 07:30:00 Test Item Value Reference Range Interpretation Comments Lymphocytes (test code = Lymphocytes) 24.1 20.0-40.0 [facility] HospitalEmzbcuiNEBEHKEEBS1016-68-00 07:30:00 Test Item Value Reference Range Interpretation Comments Monocytes (test code = Monocytes) 7.0 2.0-12.0 [facility] HospitalMjpkxceNZSGIKZCRY4830-84-25 07:30:00 Test Item Value Reference Range Interpretation Comments Eosinophils (test code = 3.7 See_Comment [A utomated message] The Eosinophils) system which ge nerated this result tra nsmitted reference range : <=4.0. The reference r leo was not used to int erpret this result as normal/abnormal . [facility] HospitalDbkponzJOSEJOCEXT9939-95-51 07:30:00 Test Item Value Reference Range Interpretation Comments Basophils (test code = 1.2 See_Comment [Aut omated message] The Basophils) system which ge nerated this result tra nsmitted reference range : <=1.0. The reference r leo was not used to int erpret this result as normal/abnormal . [facility] HospitalFxuobltKQLRDLZTQP1025-26-80 07:30:00 Test Item Value Reference Range Interpretation Comments Neutrophils # (test code = Neutrophils 1.5 1.5-8.1 #) [place] [address]-08-08 07:30:00 Test Item Value Reference Range Interpretation Comments Lymphocytes # (test code = Lymphocytes 0.6 1.0-5.5 #) [place] 088951-08-08 07:30:00 Test Item Value Reference Range Interpretation Comments Monocytes # (test code 0.2 See_Comment [Aut omated message] The = Monocytes #) system which generated this result tra nsmitted reference range : <=0.8. The reference r leo was not used to int erpret this result as normal/abnormal . [place] [address]-08-08 07:30:00 Test Item Value Reference Range Interpretation Comments Eosinophils # (test code 0.1 See_Comment [A utomated message] The = Eosinophils #) system whic h generated this result tra nsmitted reference range : <=0.5. The reference r leo was not used to int erpret this result as normal/abnormal . [place] 322431-08-08 07:30:00 Test Item Value Reference Range Interpretation Comments Glucose Lvl (test code = Glucose Lvl) 65 70-99 [place] [address]-08-08 07:30:00 Test Item Value Reference Range Interpretation Comments BUN (test code = BUN) 21 7-22 [place] 322431-08-08 07:30:00 Test Item Value Reference Range Interpretation Comments Creatinine Lvl (test code = Creatinine 4.18 0.50-1.40 Lvl) [place] 322431-08-08 07:30:00 Test Item Value Reference Range Interpretation Comments Sodium Lvl (test code = Sodium Lvl) 136 135-145 [place] 322431-08-08 07:30:00 Test Item Value Reference Range Interpretation Comments Potassium Lvl (test code = Potassium 4.5 3.5-5.1 Lvl) [place] 322431-08-08 07:30:00 Test Item Value Reference Range Interpretation Comments Chloride Lvl (test code = Chloride Lvl) 99 95-109 [place] 322431-08-08 07:30:00 Test Item Value Reference Range Interpretation Comments CO2 (test code = CO2) 31 24-32 [place] 322431-08-08 07:30:00 Test Item Value Reference Range Interpretation Comments AGAP (test code = AGAP) 10.5 10.0-20.0 [place] 322431-08-08 07:30:00 Test Item Value Reference Range Interpretation Comments Calcium Lvl (test code = Calcium Lvl) 7.9 8.5-10.5 [place] 322431-08-08 07:30:00 Test Item Value Reference Range Interpretation Comments eGFR (test code = eGFR) 13 [place] 322431-08-08 07:30:00 Test Item Value Reference Range Interpretation Comments Magnesium Lvl (test code = Magnesium 2.2 1.8-2.4 Lvl) [place] 322431-08-08 07:30:00 Test Item Value Reference Range Interpretation Comments Phosphorus (test code = Phosphorus) 4.4 2.5-4.5 [place] 088951-08-08 07:30:00 Test Item Value Reference Range Interpretation Comments WBC (test code = WBC) 2.3 3.7-10.4 [place] 088951-08-08 07:30:00 Test Item Value Reference Range Interpretation Comments RBC (test code = RBC) 2.88 4.20-5.40 [place] 088951-08-08 07:30:00 Test Item Value Reference Range Interpretation Comments Hgb (test code = Hgb) 8.6 12.0-16.0 [place] 088951-08-08 07:30:00 Test Item Value Reference Range Interpretation Comments Hct (test code = Hct) 26.6 36.0-48.0 [place] 088951-08-08 07:30:00 Test Item Value Reference Range Interpretation Comments MCV (test code = MCV) 92.2 80.0-98.0 [place] 088951-08-08 07:30:00 Test Item Value Reference Range Interpretation Comments MCH (test code = MCH) 29.8 pg 27.0-31.0 [place] 088951-08-08 07:30:00 Test Item Value Reference Range Interpretation Comments MCHC (test code = MCHC) 32.4 32.0-36.0 [place] [address]-08-08 07:30:00 Test Item Value Reference Range Interpretation Comments RDW (test code = RDW) 19.7 11.5-14.5 [facility] HospitalBogiobeZDELHEQYKD7521-76-58 07:30:00 Test Item Value Reference Range Interpretation Comments Platelet (test code = Platelet) 83 133-450 [facility] HospitalGtseuvnYAKHDCTCFM1600-05-86 07:30:00 Test Item Value Reference Range Interpretation Comments MPV (test code = MPV) 10.2 7.4-10.4 [place] 088951-08-08 07:30:00 Test Item Value Reference Range Interpretation Comments Segs (test code = Segs) 64.0 45.0-75.0 [place] 088951-08-08 07:30:00 Test Item Value Reference Range Interpretation Comments Lymphocytes (test code = Lymphocytes) 24.1 20.0-40.0 [place] 088951-08-08 07:30:00 Test Item Value Reference Range Interpretation Comments Monocytes (test code = Monocytes) 7.0 2.0-12.0 [place] 088951-08-08 07:30:00 Test Item Value Reference Range Interpretation Comments Eosinophils (test code = 3.7 See_Comment [A utomated message] The Eosinophils) system which ge nerated this result tra nsmitted reference range : <=4.0. The reference r leo was not used to int erpret this result as normal/abnormal . [facility] HospitalXnjqoyrEFVLDANTTJ3375-50-66 07:30:00 Test Item Value Reference Range Interpretation Comments Basophils (test code = 1.2 See_Comment [Aut omated message] The Basophils) system which ge nerated this result tra nsmitted reference range : <=1.0. The reference r leo was not used to int erpret this result as normal/abnormal . [facility] HospitalZblfwtuFCSAXEABKA1020-68-44 07:30:00 Test Item Value Reference Range Interpretation Comments Neutrophils # (test code = Neutrophils 1.5 1.5-8.1 #) [place] 088951-08-08 07:30:00 Test Item Value Reference Range Interpretation Comments Lymphocytes # (test code = Lymphocytes 0.6 1.0-5.5 #) [facility] HospitalUrodauvUJWYSEBAHD5943-15-25 07:30:00 Test Item Value Reference Range Interpretation Comments Monocytes # (test code 0.2 See_Comment [Aut omated message] The = Monocytes #) system which generated this result tra nsmitted reference range : <=0.8. The reference r leo was not used to int erpret this result as normal/abnormal . [facility] HospitalTzdumttTXLTJFMZOL0951-18-74 07:30:00 Test Item Value Reference Range Interpretation Comments Eosinophils # (test code 0.1 See_Comment [A utomated message] The = Eosinophils #) system whic h generated this result tra nsmitted reference range : <=0.5. The reference r leo was not used to int erpret this result as normal/abnormal . [facility]2021-08-08 07:30:00 Test Item Value Reference Range Interpretation Comments Glucose Lvl (test code = Glucose Lvl) 65 70-99 [place] 322431-08-08 07:30:00 Test Item Value Reference Range Interpretation Comments BUN (test code = BUN) 21 7-22 [place] [address]-08-08 07:30:00 Test Item Value Reference Range Interpretation Comments Creatinine Lvl (test code = Creatinine 4.18 0.50-1.40 Lvl) [place] 322431-08-08 07:30:00 Test Item Value Reference Range Interpretation Comments Sodium Lvl (test code = Sodium Lvl) 136 135-145 [place] 322431-08-08 07:30:00 Test Item Value Reference Range Interpretation Comments Potassium Lvl (test code = Potassium 4.5 3.5-5.1 Lvl) [place] 322431-08-08 07:30:00 Test Item Value Reference Range Interpretation Comments Chloride Lvl (test code = Chloride Lvl) 99 95-109 [place] 322431-08-08 07:30:00 Test Item Value Reference Range Interpretation Comments CO2 (test code = CO2) 31 24-32 [place] 322431-08-08 07:30:00 Test Item Value Reference Range Interpretation Comments AGAP (test code = AGAP) 10.5 10.0-20.0 [place] 322431-08-08 07:30:00 Test Item Value Reference Range Interpretation Comments Calcium Lvl (test code = Calcium Lvl) 7.9 8.5-10.5 [place] 322431-08-08 07:30:00 Test Item Value Reference Range Interpretation Comments eGFR (test code = eGFR) 13 [facility]2021-08-08 07:30:00 Test Item Value Reference Range Interpretation Comments Magnesium Lvl (test code = Magnesium 2.2 1.8-2.4 Lvl) [facility]2021-08-08 07:30:00 Test Item Value Reference Range Interpretation Comments Phosphorus (test code = Phosphorus) 4.4 2.5-4.5 [place] 088951-08-08 07:30:00 Test Item Value Reference Range Interpretation Comments WBC (test code = WBC) 2.3 3.7-10.4 [place] 088951-08-08 07:30:00 Test Item Value Reference Range Interpretation Comments RBC (test code = RBC) 2.88 4.20-5.40 [place] 088951-08-08 07:30:00 Test Item Value Reference Range Interpretation Comments Hgb (test code = Hgb) 8.6 12.0-16.0 [place] 088951-08-08 07:30:00 Test Item Value Reference Range Interpretation Comments Hct (test code = Hct) 26.6 36.0-48.0 [facility] HospitalVdgfkkiOTAVIGKJFC9439-20-81 07:30:00 Test Item Value Reference Range Interpretation Comments MCV (test code = MCV) 92.2 80.0-98.0 [place] 088951-08-08 07:30:00 Test Item Value Reference Range Interpretation Comments MCH (test code = MCH) 29.8 pg 27.0-31.0 [place] 088951-08-08 07:30:00 Test Item Value Reference Range Interpretation Comments MCHC (test code = MCHC) 32.4 32.0-36.0 [place] 088951-08-08 07:30:00 Test Item Value Reference Range Interpretation Comments RDW (test code = RDW) 19.7 11.5-14.5 [place] 088951-08-08 07:30:00 Test Item Value Reference Range Interpretation Comments Platelet (test code = Platelet) 83 133-450 [facility]IS[facility]NG5178[facility]26-41 07:30:00 Test Item Value Reference Range Interpretation Comments MPV (test code = MPV) 10.2 7.4-10.4 [place] 088951-08-08 07:30:00 Test Item Value Reference Range Interpretation Comments Segs (test code = Segs) 64.0 45.0-75.0 [place] 088951-08-08 07:30:00 Test Item Value Reference Range Interpretation Comments Lymphocytes (test code = Lymphocytes) 24.1 20.0-40.0 [place] 088951-08-08 07:30:00 Test Item Value Reference Range Interpretation Comments Monocytes (test code = Monocytes) 7.0 2.0-12.0 [place] 088951-08-08 07:30:00 Test Item Value Reference Range Interpretation Comments Eosinophils (test code = 3.7 See_Comment [A utomated message] The Eosinophils) system which ge nerated this result tra nsmitted reference range : <=4.0. The reference r leo was not used to int erpret this result as normal/abnormal . [place] 088951-08-08 07:30:00 Test Item Value Reference Range Interpretation Comments Basophils (test code = 1.2 See_Comment [Aut omated message] The Basophils) system which ge nerated this result tra nsmitted reference range : <=1.0. The reference r leo was not used to int erpret this result as normal/abnormal . [facility]qzpveyGDVJMLSEQP3287-51-84 07:30:00 Test Item Value Reference Range Interpretation Comments Neutrophils # (test code = Neutrophils 1.5 1.5-8.1 #) [facility]kqmnshIFOPBWDZUA2599-15-06 07:30:00 Test Item Value Reference Range Interpretation Comments Lymphocytes # (test code = Lymphocytes 0.6 1.0-5.5 #) [place] 088951-08-08 07:30:00 Test Item Value Reference Range Interpretation Comments Monocytes # (test code 0.2 See_Comment [Aut omated message] The = Monocytes #) system which generated this result tra nsmitted reference range : <=0.8. The reference r leo was not used to int erpret this result as normal/abnormal . [place] 088951-08-08 07:30:00 Test Item Value Reference Range Interpretation Comments Eosinophils # (test code 0.1 See_Comment [A utomated message] The = Eosinophils #) system whic h generated this result tra nsmitted reference range : <=0.5. The reference r leo was not used to int erpret this result as normal/abnormal . [place] 322431-08-08 07:30:00 Test Item Value Reference Range Interpretation Comments Glucose Lvl (test code = Glucose Lvl) 65 70-99 [place] 322431-08-08 07:30:00 Test Item Value Reference Range Interpretation Comments BUN (test code = BUN) 21 7-22 [place] 322431-08-08 07:30:00 Test Item Value Reference Range Interpretation Comments Creatinine Lvl (test code = Creatinine 4.18 0.50-1.40 Lvl) [place] 322431-08-08 07:30:00 Test Item Value Reference Range Interpretation Comments Sodium Lvl (test code = Sodium Lvl) 136 135-145 [place] 322431-08-08 07:30:00 Test Item Value Reference Range Interpretation Comments Potassium Lvl (test code = Potassium 4.5 3.5-5.1 Lvl) [place] 322431-08-08 07:30:00 Test Item Value Reference Range Interpretation Comments Chloride Lvl (test code = Chloride Lvl) 99 95-109 [place] 322431-08-08 07:30:00 Test Item Value Reference Range Interpretation Comments CO2 (test code = CO2) 31 24-32 [facility]2021-08-08 07:30:00 Test Item Value Reference Range Interpretation Comments AGAP (test code = AGAP) 10.5 10.0-20.0 [facility]2021-08-08 07:30:00 Test Item Value Reference Range Interpretation Comments Calcium Lvl (test code = Calcium Lvl) 7.9 8.5-10.5 [place] 322431-08-08 07:30:00 Test Item Value Reference Range Interpretation Comments eGFR (test code = eGFR) 13 [place] 322431-08-08 07:30:00 Test Item Value Reference Range Interpretation Comments Magnesium Lvl (test code = Magnesium 2.2 1.8-2.4 Lvl) [place] 322431-08-08 07:30:00 Test Item Value Reference Range Interpretation Comments Phosphorus (test code = Phosphorus) 4.4 2.5-4.5 [facility]FnuyecrQPBWKXXRQO4785-31-36 07:30:00 Test Item Value Reference Range Interpretation Comments WBC (test code = WBC) 2.3 3.7-10.4 [facility] HospitalAnqepwkTTAISVKIQO4271-08-22 07:30:00 Test Item Value Reference Range Interpretation Comments RBC (test code = RBC) 2.88 4.20-5.40 [facility] HospitalSpyhelyCLKFJANVHE6856-44-64 07:30:00 Test Item Value Reference Range Interpretation Comments Hgb (test code = Hgb) 8.6 12.0-16.0 [facility] HospitalKfayvibMGETKFXNJC4458-46-93 07:30:00 Test Item Value Reference Range Interpretation Comments Hct (test code = Hct) 26.6 36.0-48.0 [facility] HospitalFujohbjVYAUHFXEDZ6255-89-03 07:30:00 Test Item Value Reference Range Interpretation Comments MCV (test code = MCV) 92.2 80.0-98.0 [facility] HospitalHxchsnvGTFBZKKFCI6592-13-91 07:30:00 Test Item Value Reference Range Interpretation Comments MCH (test code = MCH) 29.8 pg 27.0-31.0 [facility] HospitalWrueudhAFSVTHEJMO7269-36-39 07:30:00 Test Item Value Reference Range Interpretation Comments MCHC (test code = MCHC) 32.4 32.0-36.0 [facility] HospitalCztkmqnZZDFIAPYLU9004-18-07 07:30:00 Test Item Value Reference Range Interpretation Comments RDW (test code = RDW) 19.7 11.5-14.5 [facility] HospitalImavsdpHAYMWXLBUT8267-88-55 07:30:00 Test Item Value Reference Range Interpretation Comments Platelet (test code = Platelet) 83 133-450 [facility] HospitalTgjxqztKJRWHAFWHE8345-56-73 07:30:00 Test Item Value Reference Range Interpretation Comments MPV (test code = MPV) 10.2 7.4-10.4 [facility] HospitalEpepafxMCIGHEXYFJ2093-24-18 07:30:00 Test Item Value Reference Range Interpretation Comments Segs (test code = Segs) 64.0 45.0-75.0 [place] 088951-08-08 07:30:00 Test Item Value Reference Range Interpretation Comments Lymphocytes (test code = Lymphocytes) 24.1 20.0-40.0 [place] 088951-08-08 07:30:00 Test Item Value Reference Range Interpretation Comments Monocytes (test code = Monocytes) 7.0 2.0-12.0 [place] 088951-08-08 07:30:00 Test Item Value Reference Range Interpretation Comments Eosinophils (test code = 3.7 See_Comment [A utomated message] The Eosinophils) system which ge nerated this result tra nsmitted reference range : <=4.0. The reference r leo was not used to int erpret this result as normal/abnormal . [place] 088951-08-08 07:30:00 Test Item Value Reference Range Interpretation Comments Basophils (test code = 1.2 See_Comment [Aut omated message] The Basophils) system which ge nerated this result tra nsmitted reference range : <=1.0. The reference r leo was not used to int erpret this result as normal/abnormal . [place] 088951-08-08 07:30:00 Test Item Value Reference Range Interpretation Comments Neutrophils # (test code = Neutrophils 1.5 1.5-8.1 #) [place] 088951-08-08 07:30:00 Test Item Value Reference Range Interpretation Comments Lymphocytes # (test code = Lymphocytes 0.6 1.0-5.5 #) [place] 088951-08-08 07:30:00 Test Item Value Reference Range Interpretation Comments Monocytes # (test code 0.2 See_Comment [Aut omated message] The = Monocytes #) system which generated this result tra nsmitted reference range : <=0.8. The reference r leo was not used to int erpret this result as normal/abnormal . [place] 088951-08-08 07:30:00 Test Item Value Reference Range Interpretation Comments Eosinophils # (test code 0.1 See_Comment [A utomated message] The = Eosinophils #) system whic h generated this result tra nsmitted reference range : <=0.5. The reference r leo was not used to int erpret this result as normal/abnormal . [place] 322431-08-07 09:32:00 Test Item Value Reference Range Interpretation Comments Glucose Lvl (test code = Glucose Lvl) 59 70-99 [place] 322431-08-07 09:32:00 Test Item Value Reference Range Interpretation Comments BUN (test code = BUN) 11 7-22 [place] 322431-08-07 09:32:00 Test Item Value Reference Range Interpretation Comments Creatinine Lvl (test code = Creatinine 2.75 0.50-1.40 Lvl) [place] 322431-08-07 09:32:00 Test Item Value Reference Range Interpretation Comments Sodium Lvl (test code = Sodium Lvl) 138 135-145 [place] 322431-08-07 09:32:00 Test Item Value Reference Range Interpretation Comments Potassium Lvl (test code = Potassium 4.1 3.5-5.1 Lvl) [place] 322431-08-07 09:32:00 Test Item Value Reference Range Interpretation Comments Chloride Lvl (test code = Chloride Lvl) 104 95-109 [place] 322431-08-07 09:32:00 Test Item Value Reference Range Interpretation Comments CO2 (test code = CO2) 29 24-32 [place] 322431-08-07 09:32:00 Test Item Value Reference Range Interpretation Comments Calcium Lvl (test code = Calcium Lvl) 8.3 8.5-10.5 [place] 322431-08-07 09:32:00 Test Item Value Reference Range Interpretation Comments AGAP (test code = AGAP) 9.1 10.0-20.0 [place] 322431-08-07 09:32:00 Test Item Value Reference Range Interpretation Comments eGFR (test code = eGFR) 21 [place] 322431-08-07 09:32:00 Test Item Value Reference Range Interpretation Comments Magnesium Lvl (test code = Magnesium 2.2 1.8-2.4 Lvl) [place] 322431-08-07 09:32:00 Test Item Value Reference Range Interpretation Comments Phosphorus (test code = Phosphorus) 3.9 2.5-4.5 [place] 088951-08-07 09:32:00 Test Item Value Reference Range Interpretation Comments WBC (test code = WBC) 2.3 3.7-10.4 [place] [address]-08-07 09:32:00 Test Item Value Reference Range Interpretation Comments RBC (test code = RBC) 2.78 4.20-5.40 [place] 088951-08-07 09:32:00 Test Item Value Reference Range Interpretation Comments Hgb (test code = Hgb) 8.4 12.0-16.0 [place] [address]-08-07 09:32:00 Test Item Value Reference Range Interpretation Comments Hct (test code = Hct) 25.2 36.0-48.0 [place] [address]-08-07 09:32:00 Test Item Value Reference Range Interpretation Comments MCV (test code = MCV) 90.5 80.0-98.0 [place] 088951-08-07 09:32:00 Test Item Value Reference Range Interpretation Comments MCH (test code = MCH) 30.4 pg 27.0-31.0 [place] 088951-08-07 09:32:00 Test Item Value Reference Range Interpretation Comments MCHC (test code = MCHC) 33.5 32.0-36.0 [place] [address]-08-07 09:32:00 Test Item Value Reference Range Interpretation Comments RDW (test code = RDW) 19.0 11.5-14.5 [place] 088951-08-07 09:32:00 Test Item Value Reference Range Interpretation Comments Platelet (test code = Platelet) 87 133-450 [place] 088951-08-07 09:32:00 Test Item Value Reference Range Interpretation Comments MPV (test code = MPV) 10.0 7.4-10.4 [place] 322431-08-07 09:32:00 Test Item Value Reference Range Interpretation Comments Glucose Lvl (test code = Glucose Lvl) 59 70-99 [place] 322431-08-07 09:32:00 Test Item Value Reference Range Interpretation Comments BUN (test code = BUN) 11 7-22 [place] 322431-08-07 09:32:00 Test Item Value Reference Range Interpretation Comments Creatinine Lvl (test code = Creatinine 2.75 0.50-1.40 Lvl) [place] 322431-08-07 09:32:00 Test Item Value Reference Range Interpretation Comments Sodium Lvl (test code = Sodium Lvl) 138 135-145 [place] 322431-08-07 09:32:00 Test Item Value Reference Range Interpretation Comments Potassium Lvl (test code = Potassium 4.1 3.5-5.1 Lvl) [place] 322431-08-07 09:32:00 Test Item Value Reference Range Interpretation Comments Chloride Lvl (test code = Chloride Lvl) 104 95-109 [place] 322431-08-07 09:32:00 Test Item Value Reference Range Interpretation Comments CO2 (test code = CO2) 29 24-32 [place] 322431-08-07 09:32:00 Test Item Value Reference Range Interpretation Comments Calcium Lvl (test code = Calcium Lvl) 8.3 8.5-10.5 [place] [address]-08-07 09:32:00 Test Item Value Reference Range Interpretation Comments AGAP (test code = AGAP) 9.1 10.0-20.0 [place] 322431-08-07 09:32:00 Test Item Value Reference Range Interpretation Comments eGFR (test code = eGFR) 21 [place] 322431-08-07 09:32:00 Test Item Value Reference Range Interpretation Comments Magnesium Lvl (test code = Magnesium 2.2 1.8-2.4 Lvl) [place] 322431-08-07 09:32:00 Test Item Value Reference Range Interpretation Comments Phosphorus (test code = Phosphorus) 3.9 2.5-4.5 [place] 088951-08-07 09:32:00 Test Item Value Reference Range Interpretation Comments WBC (test code = WBC) 2.3 3.7-10.4 [place] 088951-08-07 09:32:00 Test Item Value Reference Range Interpretation Comments RBC (test code = RBC) 2.78 4.20-5.40 [place] 088951-08-07 09:32:00 Test Item Value Reference Range Interpretation Comments Hgb (test code = Hgb) 8.4 12.0-16.0 [place] [address]-08-07 09:32:00 Test Item Value Reference Range Interpretation Comments Hct (test code = Hct) 25.2 36.0-48.0 [place] [address]-08-07 09:32:00 Test Item Value Reference Range Interpretation Comments MCV (test code = MCV) 90.5 80.0-98.0 [place] [address]-08-07 09:32:00 Test Item Value Reference Range Interpretation Comments MCH (test code = MCH) 30.4 pg 27.0-31.0 [place] 088951-08-07 09:32:00 Test Item Value Reference Range Interpretation Comments MCHC (test code = MCHC) 33.5 32.0-36.0 [place] 088951-08-07 09:32:00 Test Item Value Reference Range Interpretation Comments RDW (test code = RDW) 19.0 11.5-14.5 [place] 088951-08-07 09:32:00 Test Item Value Reference Range Interpretation Comments Platelet (test code = Platelet) 87 133-450 [place] 088951-08-07 09:32:00 Test Item Value Reference Range Interpretation Comments MPV (test code = MPV) 10.0 7.4-10.4 [place] 322431-08-07 09:32:00 Test Item Value Reference Range Interpretation Comments Glucose Lvl (test code = Glucose Lvl) 59 70-99 [place] 322431-08-07 09:32:00 Test Item Value Reference Range Interpretation Comments BUN (test code = BUN) 11 7-22 [place] 322431-08-07 09:32:00 Test Item Value Reference Range Interpretation Comments Creatinine Lvl (test code = Creatinine 2.75 0.50-1.40 Lvl) [place] 322431-08-07 09:32:00 Test Item Value Reference Range Interpretation Comments Sodium Lvl (test code = Sodium Lvl) 138 135-145 [place] 322431-08-07 09:32:00 Test Item Value Reference Range Interpretation Comments Potassium Lvl (test code = Potassium 4.1 3.5-5.1 Lvl) [place] 322431-08-07 09:32:00 Test Item Value Reference Range Interpretation Comments Chloride Lvl (test code = Chloride Lvl) 104 95-109 [place] 322431-08-07 09:32:00 Test Item Value Reference Range Interpretation Comments CO2 (test code = CO2) 29 24-32 [place] 322431-08-07 09:32:00 Test Item Value Reference Range Interpretation Comments Calcium Lvl (test code = Calcium Lvl) 8.3 8.5-10.5 [place] 322431-08-07 09:32:00 Test Item Value Reference Range Interpretation Comments AGAP (test code = AGAP) 9.1 10.0-20.0 [place] 322431-08-07 09:32:00 Test Item Value Reference Range Interpretation Comments eGFR (test code = eGFR) 21 [place] [address]-08-07 09:32:00 Test Item Value Reference Range Interpretation Comments Magnesium Lvl (test code = Magnesium 2.2 1.8-2.4 Lvl) [place] 322431-08-07 09:32:00 Test Item Value Reference Range Interpretation Comments Phosphorus (test code = Phosphorus) 3.9 2.5-4.5 [place] [address]-08-07 09:32:00 Test Item Value Reference Range Interpretation Comments WBC (test code = WBC) 2.3 3.7-10.4 [place] [address]-08-07 09:32:00 Test Item Value Reference Range Interpretation Comments RBC (test code = RBC) 2.78 4.20-5.40 [place] 088951-08-07 09:32:00 Test Item Value Reference Range Interpretation Comments Hgb (test code = Hgb) 8.4 12.0-16.0 [place] 088951-08-07 09:32:00 Test Item Value Reference Range Interpretation Comments Hct (test code = Hct) 25.2 36.0-48.0 [place] [address]-08-07 09:32:00 Test Item Value Reference Range Interpretation Comments MCV (test code = MCV) 90.5 80.0-98.0 [place] [address]-08-07 09:32:00 Test Item Value Reference Range Interpretation Comments MCH (test code = MCH) 30.4 pg 27.0-31.0 [place] 088951-08-07 09:32:00 Test Item Value Reference Range Interpretation Comments MCHC (test code = MCHC) 33.5 32.0-36.0 [place] 088951-08-07 09:32:00 Test Item Value Reference Range Interpretation Comments RDW (test code = RDW) 19.0 11.5-14.5 [place] [address]-08-07 09:32:00 Test Item Value Reference Range Interpretation Comments Platelet (test code = Platelet) 87 133-450 [facility] 09:32:00 Test Item Value Reference Range Interpretation Comments MPV (test code = MPV) 10.0 7.4-10.4 [place] 322431-08-07 09:32:00 Test Item Value Reference Range Interpretation Comments Glucose Lvl (test code = Glucose Lvl) 59 70-99 [place] 322431-08-07 09:32:00 Test Item Value Reference Range Interpretation Comments BUN (test code = BUN) 11 7-22 [place] 322431-08-07 09:32:00 Test Item Value Reference Range Interpretation Comments Creatinine Lvl (test code = Creatinine 2.75 0.50-1.40 Lvl) [place] 322431-08-07 09:32:00 Test Item Value Reference Range Interpretation Comments Sodium Lvl (test code = Sodium Lvl) 138 135-145 [place] 322431-08-07 09:32:00 Test Item Value Reference Range Interpretation Comments Potassium Lvl (test code = Potassium 4.1 3.5-5.1 Lvl) [place] 322431-08-07 09:32:00 Test Item Value Reference Range Interpretation Comments Chloride Lvl (test code = Chloride Lvl) 104 95-109 [place] 322431-08-07 09:32:00 Test Item Value Reference Range Interpretation Comments CO2 (test code = CO2) 29 24-32 [place] 322431-08-07 09:32:00 Test Item Value Reference Range Interpretation Comments Calcium Lvl (test code = Calcium Lvl) 8.3 8.5-10.5 [place] 322431-08-07 09:32:00 Test Item Value Reference Range Interpretation Comments AGAP (test code = AGAP) 9.1 10.0-20.0 [place] 322431-08-07 09:32:00 Test Item Value Reference Range Interpretation Comments eGFR (test code = eGFR) 21 [place] 322431-08-07 09:32:00 Test Item Value Reference Range Interpretation Comments Magnesium Lvl (test code = Magnesium 2.2 1.8-2.4 Lvl) [place] 322431-08-07 09:32:00 Test Item Value Reference Range Interpretation Comments Phosphorus (test code = Phosphorus) 3.9 2.5-4.5 [place] 088951-08-07 09:32:00 Test Item Value Reference Range Interpretation Comments WBC (test code = WBC) 2.3 3.7-10.4 [place] 088951-08-07 09:32:00 Test Item Value Reference Range Interpretation Comments RBC (test code = RBC) 2.78 4.20-5.40 [place] 088951-08-07 09:32:00 Test Item Value Reference Range Interpretation Comments Hgb (test code = Hgb) 8.4 12.0-16.0 [place] 088951-08-07 09:32:00 Test Item Value Reference Range Interpretation Comments Hct (test code = Hct) 25.2 36.0-48.0 [place] 088951-08-07 09:32:00 Test Item Value Reference Range Interpretation Comments MCV (test code = MCV) 90.5 80.0-98.0 [place] 088951-08-07 09:32:00 Test Item Value Reference Range Interpretation Comments MCH (test code = MCH) 30.4 pg 27.0-31.0 [place] 088951-08-07 09:32:00 Test Item Value Reference Range Interpretation Comments MCHC (test code = MCHC) 33.5 32.0-36.0 [place] 088951-08-07 09:32:00 Test Item Value Reference Range Interpretation Comments RDW (test code = RDW) 19.0 11.5-14.5 [place] 088951-08-07 09:32:00 Test Item Value Reference Range Interpretation Comments Platelet (test code = Platelet) 87 133-450 [facility]zcxuoDGCUYHCNJH6366-09-16 09:32:00 Test Item Value Reference Range Interpretation Comments MPV (test code = MPV) 10.0 7.4-10.4 [facility]2021-08-07 09:32:00 Test Item Value Reference Range Interpretation Comments Glucose Lvl (test code = Glucose Lvl) 59 70-99 [place] 322431-08-07 09:32:00 Test Item Value Reference Range Interpretation Comments BUN (test code = BUN) 11 7-22 [place] 322431-08-07 09:32:00 Test Item Value Reference Range Interpretation Comments Creatinine Lvl (test code = Creatinine 2.75 0.50-1.40 Lvl) [place] 322431-08-07 09:32:00 Test Item Value Reference Range Interpretation Comments Sodium Lvl (test code = Sodium Lvl) 138 135-145 [place] 322431-08-07 09:32:00 Test Item Value Reference Range Interpretation Comments Potassium Lvl (test code = Potassium 4.1 3.5-5.1 Lvl) [place] 322431-08-07 09:32:00 Test Item Value Reference Range Interpretation Comments Chloride Lvl (test code = Chloride Lvl) 104 95-109 [place] 322431-08-07 09:32:00 Test Item Value Reference Range Interpretation Comments CO2 (test code = CO2) 29 24-32 [place] 322431-08-07 09:32:00 Test Item Value Reference Range Interpretation Comments Calcium Lvl (test code = Calcium Lvl) 8.3 8.5-10.5 [place] 322431-08-07 09:32:00 Test Item Value Reference Range Interpretation Comments AGAP (test code = AGAP) 9.1 10.0-20.0 [place] 322431-08-07 09:32:00 Test Item Value Reference Range Interpretation Comments eGFR (test code = eGFR) 21 [place] 322431-08-07 09:32:00 Test Item Value Reference Range Interpretation Comments Magnesium Lvl (test code = Magnesium 2.2 1.8-2.4 Lvl) [place] 322431-08-07 09:32:00 Test Item Value Reference Range Interpretation Comments Phosphorus (test code = Phosphorus) 3.9 2.5-4.5 [place] [address]-08-07 09:32:00 Test Item Value Reference Range Interpretation Comments WBC (test code = WBC) 2.3 3.7-10.4 [place] [address]-08-07 09:32:00 Test Item Value Reference Range Interpretation Comments RBC (test code = RBC) 2.78 4.20-5.40 [place] [address]-08-07 09:32:00 Test Item Value Reference Range Interpretation Comments Hgb (test code = Hgb) 8.4 12.0-16.0 [facility]PmazeipGVXRDGMJUI2391-55-83 09:32:00 Test Item Value Reference Range Interpretation Comments Hct (test code = Hct) 25.2 36.0-48.0 [facility]vbskwpZFJQEAGQZV4497-49-24 09:32:00 Test Item Value Reference Range Interpretation Comments MCV (test code = MCV) 90.5 80.0-98.0 [facility] ResourcesNnpqmnrETEHIRJLQT6450-98-12 09:32:00 Test Item Value Reference Range Interpretation Comments MCH (test code = MCH) 30.4 pg 27.0-31.0 [facility] ResourcesOcqixxfWXHTSEFQEV8019-96-33 09:32:00 Test Item Value Reference Range Interpretation Comments MCHC (test code = MCHC) 33.5 32.0-36.0 [facility]AxhfrpqXKPYQDGVIB6474-39-80 09:32:00 Test Item Value Reference Range Interpretation Comments RDW (test code = RDW) 19.0 11.5-14.5 [facility]GildzgvPPWYVUNFKD6336-11-39 09:32:00 Test Item Value Reference Range Interpretation Comments Platelet (test code = Platelet) 87 133-450 [facility] ResourcesEpjtndsZFBXJIGNHL5620-80-57 09:32:00 Test Item Value Reference Range Interpretation Comments MPV (test code = MPV) 10.0 7.4-10.4 [facility] DallasPlay It Interactive OEJQVQF6240-52-30 05:33:00 Test Item Value Reference Range Interpretation Comments ABO/Rh (test code = ABO/Rh) B POS [facility] extraTKT JSXPBFH7387-82-37 05:33:00 Test Item Value Reference Range Interpretation Comments Antibody Scrn (test Negative (01/24/21 12:33 code = Antibody Scrn) AM) [facility] ResourcesKaqqxudJYDHWUGJLE0015-12-78 05:33:00 Test Item Value Reference Range Interpretation Comments Segs (test code = Segs) 60.2 45.0-75.0 [facility] ResourcesMxflcqbJDFOGLDMGB6131-62-32 05:33:00 Test Item Value Reference Range Interpretation Comments Lymphocytes (test code = Lymphocytes) 28.6 20.0-40.0 [facility] DallasHosgzxqLGZDCQVXFT1579-53-24 05:33:00 Test Item Value Reference Range Interpretation Comments Monocytes (test code = Monocytes) 5.8 2.0-12.0 [facility] HospitalYozbzgkPSNIBEOMNW6536-65-57 05:33:00 Test Item Value Reference Range Interpretation Comments Eosinophils (test code = 4.2 See_Comment [A utomated message] The Eosinophils) system which ge nerated this result tra nsmitted reference range : <=4.0. The reference r leo was not used to int erpret this result as normal/abnormal . [facility] [facility]NOTX6137-70-24 05:33:00 Test Item Value Reference Range Interpretation Comments Basophils (test code = 1.2 See_Comment [Aut omated message] The Basophils) system which ge nerated this result tra nsmitted reference range : <=1.0. The reference r leo was not used to int erpret this result as normal/abnormal . [facility]ZdmrlavCOIHJXJXSJ1969-56-39 05:33:00 Test Item Value Reference Range Interpretation Comments Neutrophils # (test code = Neutrophils 2.2 1.5-8.1 #) [facility] HospitalXhcybwdVANCCAZGIM9861-38-94 05:33:00 Test Item Value Reference Range Interpretation Comments Lymphocytes # (test code = Lymphocytes 1.1 1.0-5.5 #) [facility] HospitalKsuttqbFMDFETVXXR9231-24-48 05:33:00 Test Item Value Reference Range Interpretation Comments Monocytes # (test code 0.2 See_Comment [Aut omated message] The = Monocytes #) system which generated this result tra nsmitted reference range : <=0.8. The reference r leo was not used to int erpret this result as normal/abnormal . [facility] HospitalOucgtzsJXXVSPLAIF6398-98-36 05:33:00 Test Item Value Reference Range Interpretation Comments Eosinophils # (test code 0.2 See_Comment [A utomated message] The = Eosinophils #) system whic h generated this result tra nsmitted reference range : <=0.5. The reference r leo was not used to int erpret this result as normal/abnormal . [facility] [id number] 05:33:00 Test Item Value Reference Range Interpretation Comments ABO/Rh (test code = ABO/Rh) B POS [facility] [id number] 05:33:00 Test Item Value Reference Range Interpretation Comments Antibody Scrn (test Negative (01/24/21 12:33 code = Antibody Scrn) AM) [facility] HospitalSrhlyguCQVILYBBGN8572-41-49 05:33:00 Test Item Value Reference Range Interpretation Comments Segs (test code = Segs) 60.2 45.0-75.0 [facility] HospitalYhyhkxoGOQGVLPXVF5717-37-90 05:33:00 Test Item Value Reference Range Interpretation Comments Lymphocytes (test code = Lymphocytes) 28.6 20.0-40.0 [place] [id number] 05:33:00 Test Item Value Reference Range Interpretation Comments Monocytes (test code = Monocytes) 5.8 2.0-12.0 [place] 088951-08-06 05:33:00 Test Item Value Reference Range Interpretation Comments Eosinophils (test code = 4.2 See_Comment [A utomated message] The Eosinophils) system which ge nerated this result tra nsmitted reference range : <=4.0. The reference r leo was not used to int erpret this result as normal/abnormal . [facility] HospitalBgbwhvoHYJJMMMRBH1003-16-65 05:33:00 Test Item Value Reference Range Interpretation Comments Basophils (test code = 1.2 See_Comment [Aut omated message] The Basophils) system which ge nerated this result tra nsmitted reference range : <=1.0. The reference r leo was not used to int erpret this result as normal/abnormal . [facility] HospitalEdmmelmCAWGQXWSUQ9749-20-76 05:33:00 Test Item Value Reference Range Interpretation Comments Neutrophils # (test code = Neutrophils 2.2 1.5-8.1 #) [facility] HospitalUowyougRTPZQUGBLR3727-02-66 05:33:00 Test Item Value Reference Range Interpretation Comments Lymphocytes # (test code = Lymphocytes 1.1 1.0-5.5 #) [place] 088951-08-06 05:33:00 Test Item Value Reference Range Interpretation Comments Monocytes # (test code 0.2 See_Comment [Aut omated message] The = Monocytes #) system which generated this result tra nsmitted reference range : <=0.8. The reference r leo was not used to int erpret this result as normal/abnormal . [place] 088951-08-06 05:33:00 Test Item Value Reference Range Interpretation Comments Eosinophils # (test code 0.2 See_Comment [A utomated message] The = Eosinophils #) system whic h generated this result tra nsmitted reference range : <=0.5. The reference r leo was not used to int erpret this result as normal/abnormal . [facility] AGMTLYR4959-44-68 05:33:00 Test Item Value Reference Range Interpretation Comments ABO/Rh (test code = ABO/Rh) B POS [facility] [id number] 05:33:00 Test Item Value Reference Range Interpretation Comments Antibody Scrn (test Negative (01/24/21 12:33 code = Antibody Scrn) AM) [facility] HospitalZaurzkgRTNGXQDKGA5617-96-20 05:33:00 Test Item Value Reference Range Interpretation Comments Segs (test code = Segs) 60.2 45.0-75.0 [facility] HospitalJzvrisyXWLVQXRVXC1234-64-36 05:33:00 Test Item Value Reference Range Interpretation Comments Lymphocytes (test code = Lymphocytes) 28.6 20.0-40.0 [facility] HospitalJdyehueISTONTMVRZ8802-48-17 05:33:00 Test Item Value Reference Range Interpretation Comments Monocytes (test code = Monocytes) 5.8 2.0-12.0 [facility] HospitalWmezextQZYAXSHECH7340-67-88 05:33:00 Test Item Value Reference Range Interpretation Comments Eosinophils (test code = 4.2 See_Comment [A utomated message] The Eosinophils) system which ge nerated this result tra nsmitted reference range : <=4.0. The reference r leo was not used to int erpret this result as normal/abnormal . [facility] HospitalZksbgnkQAMHLQUQII2310-41-53 05:33:00 Test Item Value Reference Range Interpretation Comments Basophils (test code = 1.2 See_Comment [Aut omated message] The Basophils) system which ge nerated this result tra nsmitted reference range : <=1.0. The reference r leo was not used to int erpret this result as normal/abnormal . [facility] HospitalGxxhvaeOVJJKDBDQO4413-16-07 05:33:00 Test Item Value Reference Range Interpretation Comments Neutrophils # (test code = Neutrophils 2.2 1.5-8.1 #) [facility] HospitalJdvpmrrUYEOSUPSAZ3081-41-29 05:33:00 Test Item Value Reference Range Interpretation Comments Lymphocytes # (test code = Lymphocytes 1.1 1.0-5.5 #) [facility] HospitalPcvflmqGGKAHCIXGF1799-18-88 05:33:00 Test Item Value Reference Range Interpretation Comments Monocytes # (test code 0.2 See_Comment [Aut omated message] The = Monocytes #) system which generated this result tra nsmitted reference range : <=0.8. The reference r leo was not used to int erpret this result as normal/abnormal . [facility] HospitalWoayithXJNUFAFKYQ5753-06-16 05:33:00 Test Item Value Reference Range Interpretation Comments Eosinophils # (test code 0.2 See_Comment [A utomated message] The = Eosinophils #) system whic h generated this result tra nsmitted reference range : <=0.5. The reference r leo was not used to int erpret this result as normal/abnormal . [facility]St[facility] WEAYUNS2737-58-01 05:33:00 Test Item Value Reference Range Interpretation Comments ABO/Rh (test code = ABO/Rh) B POS [facility] MFVOJAA3980-82-52 05:33:00 Test Item Value Reference Range Interpretation Comments Antibody Scrn (test Negative (01/24/21 12:33 code = Antibody Scrn) AM) [facility] HospitalNlfjtwcLXBFDHQUMX4301-18-33 05:33:00 Test Item Value Reference Range Interpretation Comments Segs (test code = Segs) 60.2 45.0-75.0 [facility] HospitalPgdyyqrOOSRYWERIC0279-19-82 05:33:00 Test Item Value Reference Range Interpretation Comments Lymphocytes (test code = Lymphocytes) 28.6 20.0-40.0 [facility] HospitalKhysjtaGGTAGDLFNW8165-72-37 05:33:00 Test Item Value Reference Range Interpretation Comments Monocytes (test code = Monocytes) 5.8 2.0-12.0 [facility] HospitalHpsmgwlGXZMIIKVXF1047-28-45 05:33:00 Test Item Value Reference Range Interpretation Comments Eosinophils (test code = 4.2 See_Comment [A utomated message] The Eosinophils) system which ge nerated this result tra nsmitted reference range : <=4.0. The reference r leo was not used to int erpret this result as normal/abnormal . [facility] ResourcesVhginvaIPORXCPTCG8945-71-29 05:33:00 Test Item Value Reference Range Interpretation Comments Basophils (test code = 1.2 See_Comment [Aut omated message] The Basophils) system which ge nerated this result tra nsmitted reference range : <=1.0. The reference r leo was not used to int erpret this result as normal/abnormal . [facility] HospitalVtexvzqDYDXBVGLVP5495-68-57 05:33:00 Test Item Value Reference Range Interpretation Comments Neutrophils # (test code = Neutrophils 2.2 1.5-8.1 #) [facility] HospitalTrodeoaSTECNOVZWG7011-73-84 05:33:00 Test Item Value Reference Range Interpretation Comments Lymphocytes # (test code = Lymphocytes 1.1 1.0-5.5 #) [facility] HospitalCluybsrYCZTTOGNJM1375-87-29 05:33:00 Test Item Value Reference Range Interpretation Comments Monocytes # (test code 0.2 See_Comment [Aut omated message] The = Monocytes #) system which generated this result tra nsmitted reference range : <=0.8. The reference r leo was not used to int erpret this result as normal/abnormal . [facility] HospitalTlpxlmkZCULBHEGDT3800-78-51 05:33:00 Test Item Value Reference Range Interpretation Comments Eosinophils # (test code 0.2 See_Comment [A utomated message] The = Eosinophils #) system whic h generated this result tra nsmitted reference range : <=0.5. The reference r leo was not used to int erpret this result as normal/abnormal . [facility] RRPBXVZ9522-95-36 05:33:00 Test Item Value Reference Range Interpretation Comments ABO/Rh (test code = ABO/Rh) B POS [facility] ADSWQJS3760-64-53 05:33:00 Test Item Value Reference Range Interpretation Comments Antibody Scrn (test Negative (01/24/21 12:33 code = Antibody Scrn) AM) [facility] HospitalQmdaweqGQBNYDSFKH6403-21-72 05:33:00 Test Item Value Reference Range Interpretation Comments Segs (test code = Segs) 60.2 45.0-75.0 [facility] HospitalOzdmvraZLGOELEZRO4888-47-70 05:33:00 Test Item Value Reference Range Interpretation Comments Lymphocytes (test code = Lymphocytes) 28.6 20.0-40.0 [facility] HospitalSfcuixdXXJUYTCBAK1204-51-13 05:33:00 Test Item Value Reference Range Interpretation Comments Monocytes (test code = Monocytes) 5.8 2.0-12.0 [facility] HospitalDplgmpmCIVQCJDCBX1896-41-78 05:33:00 Test Item Value Reference Range Interpretation Comments Eosinophils (test code = 4.2 See_Comment [A utomated message] The Eosinophils) system which ge nerated this result tra nsmitted reference range : <=4.0. The reference r leo was not used to int erpret this result as normal/abnormal . [facility] HospitalZmspubwJESMREBGMF6285-50-67 05:33:00 Test Item Value Reference Range Interpretation Comments Basophils (test code = 1.2 See_Comment [Aut omated message] The Basophils) system which ge nerated this result tra nsmitted reference range : <=1.0. The reference r leo was not used to int erpret this result as normal/abnormal . [facility] HospitalUqbusleNKJIKNQUUQ5253-40-51 05:33:00 Test Item Value Reference Range Interpretation Comments Neutrophils # (test code = Neutrophils 2.2 1.5-8.1 #) [facility] HospitalTcsbnovYGRXBCUYYW8230-08-54 05:33:00 Test Item Value Reference Range Interpretation Comments Lymphocytes # (test code = Lymphocytes 1.1 1.0-5.5 #) [facility] HospitalLeyqberTUXIXOGODE3007-16-90 05:33:00 Test Item Value Reference Range Interpretation Comments Monocytes # (test code 0.2 See_Comment [Aut omated message] The = Monocytes #) system which generated this result tra nsmitted reference range : <=0.8. The reference r leo was not used to int erpret this result as normal/abnormal . [facility] HospitalYxubrztJLUPQYDMMX5520-02-84 05:33:00 Test Item Value Reference Range Interpretation Comments Eosinophils # (test code 0.2 See_Comment [A utomated message] The = Eosinophils #) system whic h generated this result tra nsmitted reference range : <=0.5. The reference r leo was not used to int erpret this result as normal/abnormal . [facility] HospitalJazdcunYGEWBYQWXZ9875-49-87 05:53:00 Test Item Value Reference Range Interpretation Comments PT (test code = PT) 14.4 s 12.0-14.7 [facility] HospitalWmfylnbCBORPUFSBD3888-05-16 05:53:00 Test Item Value Reference Range Interpretation Comments INR (test code = INR) 1.13 1 0.85-1.17 [facility] HospitalMxcbcqsYZMWXFSDTK9976-28-17 05:53:00 Test Item Value Reference Range Interpretation Comments Fibrinogen Lvl (test code = Fibrinogen 319 230-510 Lvl) [facility] HospitalKmshyzmHOWNSXXMFB4652-35-30 05:53:00 Test Item Value Reference Range Interpretation Comments Thrombin Time (test code = Thrombin 15.9 s 15.0-21.2 Time) [facility] HospitalLdnmrjtZIVXLOEELU6623-28-07 05:53:00 Test Item Value Reference Range Interpretation Comments PTT (test code = PTT) 47.0 s 22.9-35.8 [facility] HospitalWtjnjbrONFGTCYNCI1142-46-05 05:53:00 Test Item Value Reference Range Interpretation Comments D-Dimer (test code = D-Dimer) 0.91 [facility] HospitalZucriqlXCMUYKLPCF8708-57-72 05:53:00 Test Item Value Reference Range Interpretation Comments Basophils # (test code 0.1 See_Comment [Aut omated message] The = Basophils #) system which generated this result tra nsmitted reference range : <=0.2. The reference r leo was not used to int erpret this result as normal/abnormal . [facility]ATHY[facility] SETKABQ0025-69-38 05:53:00 Test Item Value Reference Range Interpretation Comments Ca Ion WB (test code = Ca Ion WB) 1.24 1.05-1.25 [facility] BranchATHY[facility] HMGTPOO7202-53-23 05:53:00 Test Item Value Reference Range Interpretation Comments Ca Norm WB (test code = Ca Norm WB) 1.25 1.05-1.25 [facility] HospitalPlujprlQWAEQKFUNO9365-88-46 05:53:00 Test Item Value Reference Range Interpretation Comments PT (test code = PT) 14.4 s 12.0-14.7 [facility] HospitalMhopuvcPPMJPDSYZN5480-69-10 05:53:00 Test Item Value Reference Range Interpretation Comments INR (test code = INR) 1.13 1 0.85-1.17 [facility] HospitalOntjhkfGNAFWIMUDP2751-44-18 05:53:00 Test Item Value Reference Range Interpretation Comments Fibrinogen Lvl (test code = Fibrinogen 319 230-510 Lvl) [facility] HospitalEoyusfxAMOZPAUIAT1088-34-04 05:53:00 Test Item Value Reference Range Interpretation Comments Thrombin Time (test code = Thrombin 15.9 s 15.0-21.2 Time) [facility] HospitalAjinzogCDZGYTVPGE9547-98-74 05:53:00 Test Item Value Reference Range Interpretation Comments PTT (test code = PTT) 47.0 s 22.9-35.8 [facility] HospitalTxqdkrqCNJCYRYYTO9099-55-89 05:53:00 Test Item Value Reference Range Interpretation Comments D-Dimer (test code = D-Dimer) 0.91 [place] 088951-08-05 05:53:00 Test Item Value Reference Range Interpretation Comments Basophils # (test code 0.1 See_Comment [Aut omated message] The = Basophils #) system which generated this result tra nsmitted reference range : <=0.2. The reference r leo was not used to int erpret this result as normal/abnormal . [facility]2021-08-05 05:53:00 Test Item Value Reference Range Interpretation Comments Ca Ion WB (test code = Ca Ion WB) 1.24 1.05-1.25 [facility]2021-08-05 05:53:00 Test Item Value Reference Range Interpretation Comments Ca Norm WB (test code = Ca Norm WB) 1.25 1.05-1.25 [facility] HospitalMllpibgCPWTFAVFPU9101-60-62 05:53:00 Test Item Value Reference Range Interpretation Comments PT (test code = PT) 14.4 s 12.0-14.7 [facility] HospitalRmtlzhhFTLZCQVZDA1463-11-79 05:53:00 Test Item Value Reference Range Interpretation Comments INR (test code = INR) 1.13 1 0.85-1.17 [facility] HospitalFrdxvgoJTLMXGORBD4247-99-46 05:53:00 Test Item Value Reference Range Interpretation Comments Fibrinogen Lvl (test code = Fibrinogen 319 230-510 Lvl) [facility] HospitalVxbzqawHMTJJCVLBB3523-92-27 05:53:00 Test Item Value Reference Range Interpretation Comments Thrombin Time (test code = Thrombin 15.9 s 15.0-21.2 Time) [facility] HospitalGuuqyhrUZTFINLEMI5584-11-15 05:53:00 Test Item Value Reference Range Interpretation Comments PTT (test code = PTT) 47.0 s 22.9-35.8 [facility] HospitalJzswtpfTEJIEOMZYO3046-13-54 05:53:00 Test Item Value Reference Range Interpretation Comments D-Dimer (test code = D-Dimer) 0.91 [place] 088951-08-05 05:53:00 Test Item Value Reference Range Interpretation Comments Basophils # (test code 0.1 See_Comment [Aut omated message] The = Basophils #) system which generated this result tra nsmitted reference range : <=0.2. The reference r leo was not used to int erpret this result as normal/abnormal . [facility]2021-08-05 05:53:00 Test Item Value Reference Range Interpretation Comments Ca Ion WB (test code = Ca Ion WB) 1.24 1.05-1.25 [facility]2021-08-05 05:53:00 Test Item Value Reference Range Interpretation Comments Ca Norm WB (test code = Ca Norm WB) 1.25 1.05-1.25 [facility] HospitalQinwjhcCDFDXVSIWJ6266-17-66 05:53:00 Test Item Value Reference Range Interpretation Comments PT (test code = PT) 14.4 s 12.0-14.7 [facility] HospitalVcumravZMVJEWLVNN9030-65-76 05:53:00 Test Item Value Reference Range Interpretation Comments INR (test code = INR) 1.13 1 0.85-1.17 [facility] HospitalLpyyqqvHMVLAUFRMF9636-73-22 05:53:00 Test Item Value Reference Range Interpretation Comments Fibrinogen Lvl (test code = Fibrinogen 319 230-510 Lvl) [facility] HospitalEhvtxqmQRRTYBWNGM1367-19-40 05:53:00 Test Item Value Reference Range Interpretation Comments Thrombin Time (test code = Thrombin 15.9 s 15.0-21.2 Time) [facility] HospitalUzvurwwEHWUVHJNKP1107-42-43 05:53:00 Test Item Value Reference Range Interpretation Comments PTT (test code = PTT) 47.0 s 22.9-35.8 [facility] HospitalOfphaoyURKDMGATEC4499-03-57 05:53:00 Test Item Value Reference Range Interpretation Comments D-Dimer (test code = D-Dimer) 0.91 [place] 088951-08-05 05:53:00 Test Item Value Reference Range Interpretation Comments Basophils # (test code 0.1 See_Comment [Aut omated message] The = Basophils #) system which generated this result tra nsmitted reference range : <=0.2. The reference r leo was not used to int erpret this result as normal/abnormal . [facility]2021-08-05 05:53:00 Test Item Value Reference Range Interpretation Comments Ca Ion WB (test code = Ca Ion WB) 1.24 1.05-1.25 [facility] DYVVDRM3325-34-09 05:53:00 Test Item Value Reference Range Interpretation Comments Ca Norm WB (test code = Ca Norm WB) 1.25 1.05-1.25 [facility] HospitalGsjluxaLMNUOJXXZW4589-41-61 05:53:00 Test Item Value Reference Range Interpretation Comments PT (test code = PT) 14.4 s 12.0-14.7 [facility] HospitalAhxgzqhQLAHQETSHD1397-29-76 05:53:00 Test Item Value Reference Range Interpretation Comments INR (test code = INR) 1.13 1 0.85-1.17 [facility] HospitalKlkrdqwHVDEURJRGL1492-14-77 05:53:00 Test Item Value Reference Range Interpretation Comments Fibrinogen Lvl (test code = Fibrinogen 319 230-510 Lvl) [facility] HospitalGkqitmeXYOJDLEGGI9074-47-87 05:53:00 Test Item Value Reference Range Interpretation Comments Thrombin Time (test code = Thrombin 15.9 s 15.0-21.2 Time) [facility] HospitalBjseuwuTHHDONWJFC0567-23-84 05:53:00 Test Item Value Reference Range Interpretation Comments PTT (test code = PTT) 47.0 s 22.9-35.8 [facility] HospitalQadtezeWBUIWFUBPY6674-77-95 05:53:00 Test Item Value Reference Range Interpretation Comments D-Dimer (test code = D-Dimer) 0.91 [facility] HospitalVlsnidwMCGPLXYWWU5995-06-78 05:53:00 Test Item Value Reference Range Interpretation Comments Basophils # (test code 0.1 See_Comment [Aut omated message] The = Basophils #) system which generated this result tra nsmitted reference range : <=0.2. The reference r leo was not used to int erpret this result as normal/abnormal . [facility]2021-08-05 05:53:00 Test Item Value Reference Range Interpretation Comments Ca Ion WB (test code = Ca Ion WB) 1.24 1.05-1.25 [facility]2021-08-05 05:53:00 Test Item Value Reference Range Interpretation Comments Ca Norm WB (test code = Ca Norm WB) 1.25 1.05-1.25 [facility] ICVJD7588-95-81 10:09:00 Test Item Value Reference Range Interpretation Comments ALT (test code = ALT) 49 See_Comment [Auto mated message] The system which ge nerated this result transmit rohit reference range : <=65. The reference range was not used to interpr et this result as reji l/abnormal. [facility] [employer] [id number] 10:09:00 Test Item Value Reference Range Interpretation Comments Albumin Lvl (test code = Albumin Lvl) 2.8 3.5-5.0 [facility] [employer] [id number] 10:09:00 Test Item Value Reference Range Interpretation Comments Alk Phos (test code = Alk Phos) 41 39-136 [facility] [employer] [id number] 10:09:00 Test Item Value Reference Range Interpretation Comments Bili Direct (test code 0.2 See_Comment [Aut omated message] The = Bili Direct) system which generated this result tra nsmitted reference range : <=0.3. The reference r leo was not used to int erpret this result as reji l/abnormal. [facility] [employer] [id number] 10:09:00 Test Item Value Reference Range Interpretation Comments Bili Total (test code = Bili Total) 0.6 0.2-1.3 [facility] DallasRoozz.[facility] MEOAV0039-03-63 10:09:00 Test Item Value Reference Range Interpretation Comments Bili Indirect (test 0.4 See_Comment [Automa rohit message] The code = Bili Indirect) system which generated this result tra nsmitted reference range : <=1.0. The reference r leo was not used to int erpret this result as normal/abnormal . [facility] [employer] [id number] 10:09:00 Test Item Value Reference Range Interpretation Comments Total Protein (test code = Total 5.6 6.4-8.4 Protein) [facility] [id number] 10:09:00 Test Item Value Reference Range Interpretation Comments AST (test code = AST) 33 See_Comment [Auto mated message] The system which ge nerated this result transmit rohit reference range : <=37. The reference range was not used to interpr et this result as reji l/abnormal. [facility] [employer] [id number] 10:09:00 Test Item Value Reference Range Interpretation Comments Globulin (test code = Globulin) 2.8 2.7-4.2 [facility] [employer] [id number] 10:09:00 Test Item Value Reference Range Interpretation Comments A/G Ratio (test code = A/G Ratio) 1.0 1 0.7-1.6 [facility] [id number] 10:09:00 Test Item Value Reference Range Interpretation Comments Amylase Lvl (test code = Amylase Lvl) 19 25-115 [facility] [id number] 10:09:00 Test Item Value Reference Range Interpretation Comments Lipase Lvl (test code = Lipase Lvl) no gt 73-393 [facility] HospitalHcuvymkTUXAWIUQFP6762-01-55 10:09:00 Test Item Value Reference Range Interpretation Comments PTT (test code = PTT) 41.4 s 22.9-35.8 [facility] HospitalKaqjaxgCICRWBJZTL2683-94-62 10:09:00 Test Item Value Reference Range Interpretation Comments PT (test code = PT) 15.4 s 12.0-14.7 [facility] HospitalMcemjlzUHWGCGXZQC0723-09-98 10:09:00 Test Item Value Reference Range Interpretation Comments INR (test code = INR) 1.24 1 0.85-1.17 [facility] ResourcesCvotfazBVKKNCFIAG2419-07-85 10:09:00 Test Item Value Reference Range Interpretation Comments Fibrinogen Lvl (test code = Fibrinogen 312 230-510 Lvl) [facility]RsuxeifAVZVHWWKBO1277-76-05 10:09:00 Test Item Value Reference Range Interpretation Comments Thrombin Time (test code = Thrombin 16.6 s 15.0-21.2 Time) [facility] HospitalCcbuwtqXSUGMBOXHY1704-20-35 10:09:00 Test Item Value Reference Range Interpretation Comments D-Dimer (test code = D-Dimer) 4.91 [facility] ResourcesZbodiihQTZHDHTXKE4949-73-51 10:09:00 Test Item Value Reference Range Interpretation Comments Basophils # (test code 0.1 See_Comment [Aut omated message] The = Basophils #) system which generated this result tra nsmitted reference range : <=0.2. The reference r leo was not used to int erpret this result as normal/abnormal . [facility] [id number] 10:09:00 Test Item Value Reference Range Interpretation Comments Hgb A1C (test code = Hgb A1C) 5.6 [facility] [employer] [id number] 10:09:00 Test Item Value Reference Range Interpretation Comments ALT (test code = ALT) 49 See_Comment [Auto mated message] The system which ge nerated this result transmit rohit reference range : <=65. The reference range was not used to interpr et this result as reji l/abnormal. [facility] [employer] [id number] 10:09:00 Test Item Value Reference Range Interpretation Comments Albumin Lvl (test code = Albumin Lvl) 2.8 3.5-5.0 [facility] [id number] 10:09:00 Test Item Value Reference Range Interpretation Comments Alk Phos (test code = Alk Phos) 41 39-136 [facility] [id number] 10:09:00 Test Item Value Reference Range Interpretation Comments Bili Direct (test code 0.2 See_Comment [Aut omated message] The = Bili Direct) system which generated this result tra nsmitted reference range : <=0.3. The reference r leo was not used to int erpret this result as reji l/abnormal. [facility] [id number] 10:09:00 Test Item Value Reference Range Interpretation Comments Bili Total (test code = Bili Total) 0.6 0.2-1.3 [facility] [id number] 10:09:00 Test Item Value Reference Range Interpretation Comments Bili Indirect (test 0.4 See_Comment [Automa rohit message] The code = Bili Indirect) system which generated this result tra nsmitted reference range : <=1.0. The reference r leo was not used to int erpret this result as normal/abnormal . [facility] [employer] [id number] 10:09:00 Test Item Value Reference Range Interpretation Comments Total Protein (test code = Total 5.6 6.4-8.4 Protein) [facility] [id number] 10:09:00 Test Item Value Reference Range Interpretation Comments AST (test code = AST) 33 See_Comment [Auto mated message] The system which ge nerated this result transmit rohit reference range : <=37. The reference range was not used to interpr et this result as reji l/abnormal. [facility] [employer] [id number] 10:09:00 Test Item Value Reference Range Interpretation Comments Globulin (test code = Globulin) 2.8 2.7-4.2 [facility] [id number] 10:09:00 Test Item Value Reference Range Interpretation Comments A/G Ratio (test code = A/G Ratio) 1.0 1 0.7-1.6 [facility] [id number] 10:09:00 Test Item Value Reference Range Interpretation Comments Amylase Lvl (test code = Amylase Lvl) 19 25-115 [facility] [id number] 10:09:00 Test Item Value Reference Range Interpretation Comments Lipase Lvl (test code = Lipase Lvl) no gt 73-393 [id number] 10:09:00 Test Item Value Reference Range Interpretation Comments PTT (test code = PTT) 41.4 s 22.9-35.8 [facility]wb[facility]jRFDRMXATTL0715-99-80 10:09:00 Test Item Value Reference Range Interpretation Comments PT (test code = PT) 15.4 s 12.0-14.7 [facility] HospitalOxrglzxBEDMTZJKEO8311-67-55 10:09:00 Test Item Value Reference Range Interpretation Comments INR (test code = INR) 1.24 1 0.85-1.17 [facility] ResourcesGehtjyyZULUPPPWWY5555-13-27 10:09:00 Test Item Value Reference Range Interpretation Comments Fibrinogen Lvl (test code = Fibrinogen 312 230-510 Lvl) [facility] ResourcesXcxfedyMHKYROJHBS4854-83-07 10:09:00 Test Item Value Reference Range Interpretation Comments Thrombin Time (test code = Thrombin 16.6 s 15.0-21.2 Time) [facility] HospitalIlzatjfAOUBJHBWUZ8067-23-56 10:09:00 Test Item Value Reference Range Interpretation Comments D-Dimer (test code = D-Dimer) 4.91 [facility] ResourcesOrvzvzqEGHVDLDWIE9309-27-13 10:09:00 Test Item Value Reference Range Interpretation Comments Basophils # (test code 0.1 See_Comment [Aut omated message] The = Basophils #) system which generated this result tra nsmitted reference range : <=0.2. The reference r leo was not used to int erpret this result as normal/abnormal . [facility] [id number] 10:09:00 Test Item Value Reference Range Interpretation Comments Hgb A1C (test code = Hgb A1C) 5.6 [facility] [employer] [id number] 10:09:00 Test Item Value Reference Range Interpretation Comments ALT (test code = ALT) 49 See_Comment [Auto mated message] The system which ge nerated this result transmit rohit reference range : <=65. The reference range was not used to interpr et this result as reji l/abnormal. [facility] [id number] 10:09:00 Test Item Value Reference Range Interpretation Comments Albumin Lvl (test code = Albumin Lvl) 2.8 3.5-5.0 [facility] [id number] 10:09:00 Test Item Value Reference Range Interpretation Comments Alk Phos (test code = Alk Phos) 41 39-136 [facility] [id number] 10:09:00 Test Item Value Reference Range Interpretation Comments Bili Direct (test code 0.2 See_Comment [Aut omated message] The = Bili Direct) system which generated this result tra nsmitted reference range : <=0.3. The reference r leo was not used to int erpret this result as reji l/abnormal. [facility] [id number] 10:09:00 Test Item Value Reference Range Interpretation Comments Bili Total (test code = Bili Total) 0.6 0.2-1.3 [facility] [id number] 10:09:00 Test Item Value Reference Range Interpretation Comments Bili Indirect (test 0.4 See_Comment [Automa rohit message] The code = Bili Indirect) system which generated this result tra nsmitted reference range : <=1.0. The reference r leo was not used to int erpret this result as normal/abnormal . [facility] [employer] [id number] 10:09:00 Test Item Value Reference Range Interpretation Comments Total Protein (test code = Total 5.6 6.4-8.4 Protein) [facility] [employer] [id number] 10:09:00 Test Item Value Reference Range Interpretation Comments AST (test code = AST) 33 See_Comment [Auto mated message] The system which ge nerated this result transmit rohit reference range : <=37. The reference range was not used to interpr et this result as reji l/abnormal. [facility] [employer] [id number] 10:09:00 Test Item Value Reference Range Interpretation Comments Globulin (test code = Globulin) 2.8 2.7-4.2 [facility] [employer] [id number] 10:09:00 Test Item Value Reference Range Interpretation Comments A/G Ratio (test code = A/G Ratio) 1.0 1 0.7-1.6 [facility] [id number] 10:09:00 Test Item Value Reference Range Interpretation Comments Amylase Lvl (test code = Amylase Lvl) 19 25-115 [facility] [employer] [id number] 10:09:00 Test Item Value Reference Range Interpretation Comments Lipase Lvl (test code = Lipase Lvl) no gt 73-393 [id number] 10:09:00 Test Item Value Reference Range Interpretation Comments PTT (test code = PTT) 41.4 s 22.9-35.8 [id number] 10:09:00 Test Item Value Reference Range Interpretation Comments PT (test code = PT) 15.4 s 12.0-14.7 [facility]awYesykaiYCKZGLMIIB0534-78-08 10:09:00 Test Item Value Reference Range Interpretation Comments INR (test code = INR) 1.24 1 0.85-1.17 [facility] ResourcesLddmxltGOLTCWJGFG9030-21-67 10:09:00 Test Item Value Reference Range Interpretation Comments Fibrinogen Lvl (test code = Fibrinogen 312 230-510 Lvl) [facility] ResourcesLtetgffOXYZICGKFW7502-01-90 10:09:00 Test Item Value Reference Range Interpretation Comments Thrombin Time (test code = Thrombin 16.6 s 15.0-21.2 Time) [facility] H[id number] 10:09:00 Test Item Value Reference Range Interpretation Comments D-Dimer (test code = D-Dimer) 4.91 [id number] 10:09:00 Test Item Value Reference Range Interpretation Comments Basophils # (test code 0.1 See_Comment [Aut omated message] The = Basophils #) system which generated this result tra nsmitted reference range : <=0.2. The reference r leo was not used to int erpret this result as normal/abnormal . [facility] [id number] 10:09:00 Test Item Value Reference Range Interpretation Comments Hgb A1C (test code = Hgb A1C) 5.6 [facility] [id number] 10:09:00 Test Item Value Reference Range Interpretation Comments ALT (test code = ALT) 49 See_Comment [Auto mated message] The system which ge nerated this result transmit rohit reference range : <=65. The reference range was not used to interpr et this result as reji l/abnormal. [facility] [id number] 10:09:00 Test Item Value Reference Range Interpretation Comments Albumin Lvl (test code = Albumin Lvl) 2.8 3.5-5.0 [facility] [id number] 10:09:00 Test Item Value Reference Range Interpretation Comments Alk Phos (test code = Alk Phos) 41 39-136 [facility] [id number] 10:09:00 Test Item Value Reference Range Interpretation Comments Bili Direct (test code 0.2 See_Comment [Aut omated message] The = Bili Direct) system which generated this result tra nsmitted reference range : <=0.3. The reference r leo was not used to int erpret this result as reji l/abnormal. [facility] [employer] [id number] 10:09:00 Test Item Value Reference Range Interpretation Comments Bili Total (test code = Bili Total) 0.6 0.2-1.3 [facility] [id number] 10:09:00 Test Item Value Reference Range Interpretation Comments Bili Indirect (test 0.4 See_Comment [Automa rohit message] The code = Bili Indirect) system which generated this result tra nsmitted reference range : <=1.0. The reference r leo was not used to int erpret this result as normal/abnormal . [facility] [employer] [id number] 10:09:00 Test Item Value Reference Range Interpretation Comments Total Protein (test code = Total 5.6 6.4-8.4 Protein) [facility] [id number] 10:09:00 Test Item Value Reference Range Interpretation Comments AST (test code = AST) 33 See_Comment [Auto mated message] The system which ge nerated this result transmit rohit reference range : <=37. The reference range was not used to interpr et this result as reji l/abnormal. [facility] [employer] [id number] 10:09:00 Test Item Value Reference Range Interpretation Comments Globulin (test code = Globulin) 2.8 2.7-4.2 [facility] [employer] [id number] 10:09:00 Test Item Value Reference Range Interpretation Comments A/G Ratio (test code = A/G Ratio) 1.0 1 0.7-1.6 [facility] [employer] [id number] 10:09:00 Test Item Value Reference Range Interpretation Comments Amylase Lvl (test code = Amylase Lvl) 19 25-115 [facility] [employer] [id number] 10:09:00 Test Item Value Reference Range Interpretation Comments Lipase Lvl (test code = Lipase Lvl) no gt 73-393 [id number] 10:09:00 Test Item Value Reference Range Interpretation Comments PTT (test code = PTT) 41.4 s 22.9-35.8 [id number] 10:09:00 Test Item Value Reference Range Interpretation Comments PT (test code = PT) 15.4 s 12.0-14.7 [facility] ResourcesIejnkhbTBECGJWVZO5318-42-18 10:09:00 Test Item Value Reference Range Interpretation Comments INR (test code = INR) 1.24 1 0.85-1.17 [facility] ResourcesSgyyaaaPBYRBPMHCS0058-14-03 10:09:00 Test Item Value Reference Range Interpretation Comments Fibrinogen Lvl (test code = Fibrinogen 312 230-510 Lvl) [facility] ResourcesCwtkxnoZGRLFXOYIA1202-95-06 10:09:00 Test Item Value Reference Range Interpretation Comments Thrombin Time (test code = Thrombin 16.6 s 15.0-21.2 Time) [id number] 10:09:00 Test Item Value Reference Range Interpretation Comments D-Dimer (test code = D-Dimer) 4.91 [facility] Res[id number] 10:09:00 Test Item Value Reference Range Interpretation Comments Basophils # (test code 0.1 See_Comment [Aut omated message] The = Basophils #) system which generated this result tra nsmitted reference range : <=0.2. The reference r leo was not used to int erpret this result as normal/abnormal . [facility] [id number] 10:09:00 Test Item Value Reference Range Interpretation Comments Hgb A1C (test code = Hgb A1C) 5.6 [facility] [employer]2021-08-04 10:09:00 Test Item Value Reference Range Interpretation Comments ALT (test code = ALT) 49 See_Comment [Auto mated message] The system which ge nerated this result transmit rohit reference range : <=65. The reference range was not used to interpr et this result as reji l/abnormal. [facility] [employer]2021-08-04 10:09:00 Test Item Value Reference Range Interpretation Comments Albumin Lvl (test code = Albumin Lvl) 2.8 3.5-5.0 [facility] [employer] [id number] 10:09:00 Test Item Value Reference Range Interpretation Comments Alk Phos (test code = Alk Phos) 41 39-136 [facility] [employer]2021-08-04 10:09:00 Test Item Value Reference Range Interpretation Comments Bili Direct (test code 0.2 See_Comment [Aut omated message] The = Bili Direct) system which generated this result tra nsmitted reference range : <=0.3. The reference r leo was not used to int erpret this result as reji l/abnormal. [employer] [id number] 10:09:00 Test Item Value Reference Range Interpretation Comments Bili Total (test code = Bili Total) 0.6 0.2-1.3 [facility] [employer]2021-08-04 10:09:00 Test Item Value Reference Range Interpretation Comments Bili Indirect (test 0.4 See_Comment [Automa rohit message] The code = Bili Indirect) system which generated this result tra nsmitted reference range : <=1.0. The reference r leo was not used to int erpret this result as normal/abnormal . [employer] [id number] 10:09:00 Test Item Value Reference Range Interpretation Comments Total Protein (test code = Total 5.6 6.4-8.4 Protein) [facility] [employer] [id number] 10:09:00 Test Item Value Reference Range Interpretation Comments AST (test code = AST) 33 See_Comment [Auto mated message] The system which ge nerated this result transmit rohit reference range : <=37. The reference range was not used to interpr et this result as reji l/abnormal. [employer]2021-08-04 10:09:00 Test Item Value Reference Range Interpretation Comments Globulin (test code = Globulin) 2.8 2.7-4.2 [facility] [employer] [id number] 10:09:00 Test Item Value Reference Range Interpretation Comments A/G Ratio (test code = A/G Ratio) 1.0 1 0.7-1.6 [facility] [id number] 10:09:00 Test Item Value Reference Range Interpretation Comments Amylase Lvl (test code = Amylase Lvl) 19 25-115 [facility] [id number] 10:09:00 Test Item Value Reference Range Interpretation Comments Lipase Lvl (test code = Lipase Lvl) no gt 73-393 [facility] ResourcesRxnkryiNTVXUSMOSD5203-37-64 10:09:00 Test Item Value Reference Range Interpretation Comments PTT (test code = PTT) 41.4 s 22.9-35.8 [facility] ResourcesQgkkewjGOPMQVEXEX5512-25-93 10:09:00 Test Item Value Reference Range Interpretation Comments PT (test code = PT) 15.4 s 12.0-14.7 [facility] DallasSzxaomvPMZRZHRFIQ1673-53-51 10:09:00 Test Item Value Reference Range Interpretation Comments INR (test code = INR) 1.24 1 0.85-1.17 [facility] DallasUzqnmnaQQUWTQWKVL9005-12-78 10:09:00 Test Item Value Reference Range Interpretation Comments Fibrinogen Lvl (test code = Fibrinogen 312 230-510 Lvl) [facility] ResourcesZlimrhuHNXMXCCYWB7593-29-33 10:09:00 Test Item Value Reference Range Interpretation Comments Thrombin Time (test code = Thrombin 16.6 s 15.0-21.2 Time) [facility] ResourcesTrymyamTHVEZXKMLO3629-87-52 10:09:00 Test Item Value Reference Range Interpretation Comments D-Dimer (test code = D-Dimer) 4.91 [facility] ResourcesRtwagatAXDXPVJIVE9588-77-79 10:09:00 Test Item Value Reference Range Interpretation Comments Basophils # (test code 0.1 See_Comment [Aut omated message] The = Basophils #) system which generated this result tra nsmitted reference range : <=0.2. The reference r leo was not used to int erpret this result as normal/abnormal . [facility] [id number] 10:09:00 Test Item Value Reference Range Interpretation Comments Hgb A1C (test code = Hgb A1C) 5.6 [facility]2021-08-04 09:07:00 Test Item Value Reference Range Interpretation Comments Amylase Lvl (test code = Amylase Lvl) 4 25-115 [facility] HospitalZmxhrhmSMXJRXNBEL3372-93-77 09:07:00 Test Item Value Reference Range Interpretation Comments Thrombin Time (test code = Thrombin 18.0 s 15.0-21.2 Time) [facility] HospitalLhdacebLBHWBKHQXN8626-77-17 09:07:00 Test Item Value Reference Range Interpretation Comments PT (test code = PT) 24.6 s 12.0-14.7 [place] 088951-08-04 09:07:00 Test Item Value Reference Range Interpretation Comments INR (test code = INR) 2.31 1 0.85-1.17 [place] 088951-08-04 09:07:00 Test Item Value Reference Range Interpretation Comments PTT (test code = PTT) 57.5 s 22.9-35.8 [place] 088951-08-04 09:07:00 Test Item Value Reference Range Interpretation Comments Fibrinogen Lvl (test code = Fibrinogen 125 230-510 Lvl) [facility] HospitalOlaaxrtVNNYNYEYBS3028-78-35 09:07:00 Test Item Value Reference Range Interpretation Comments D-Dimer (test code = D-Dimer) 2.28 [facility]2021-08-04 09:07:00 Test Item Value Reference Range Interpretation Comments Amylase Lvl (test code = Amylase Lvl) 4 25-115 [facility] HospitalPpgirznIGASQRJXRZ8337-99-82 09:07:00 Test Item Value Reference Range Interpretation Comments Thrombin Time (test code = Thrombin 18.0 s 15.0-21.2 Time) [facility] HospitalVwmebrgVCSYTXPOCT3882-17-50 09:07:00 Test Item Value Reference Range Interpretation Comments PT (test code = PT) 24.6 s 12.0-14.7 [place] 088951-08-04 09:07:00 Test Item Value Reference Range Interpretation Comments INR (test code = INR) 2.31 1 0.85-1.17 [place] 088951-08-04 09:07:00 Test Item Value Reference Range Interpretation Comments PTT (test code = PTT) 57.5 s 22.9-35.8 [place] 088951-08-04 09:07:00 Test Item Value Reference Range Interpretation Comments Fibrinogen Lvl (test code = Fibrinogen 125 230-510 Lvl) [facility] HospitalZdssvmmWKMJQXOFXI3456-05-49 09:07:00 Test Item Value Reference Range Interpretation Comments D-Dimer (test code = D-Dimer) 2.28 [facility]2021-08-04 09:07:00 Test Item Value Reference Range Interpretation Comments Amylase Lvl (test code = Amylase Lvl) 4 - [facility] HospitalYgfajjqJEGDHWJZDZ4465-48-60 09:07:00 Test Item Value Reference Range Interpretation Comments Thrombin Time (test code = Thrombin 18.0 s 15.0-21.2 Time) [place] 088951-08-04 09:07:00 Test Item Value Reference Range Interpretation Comments PT (test code = PT) 24.6 s 12.0-14.7 [place] 088951-08-04 09:07:00 Test Item Value Reference Range Interpretation Comments INR (test code = INR) 2.31 1 0.85-1.17 [facility] HospitalIotojuvYSNGVAAVMN1313-15-61 09:07:00 Test Item Value Reference Range Interpretation Comments PTT (test code = PTT) 57.5 s 22.9-35.8 [place] 088951-08-04 09:07:00 Test Item Value Reference Range Interpretation Comments Fibrinogen Lvl (test code = Fibrinogen 125 230-510 Lvl) [facility] HospitalQxdvzbaUJWVYWJTVM0813-38-82 09:07:00 Test Item Value Reference Range Interpretation Comments D-Dimer (test code = D-Dimer) 2.28 [facility]2021-08-04 09:07:00 Test Item Value Reference Range Interpretation Comments Amylase Lvl (test code = Amylase Lvl) 4 - [facility] HospitalLwyhmhtBTQOTYRPQM6069-76-67 09:07:00 Test Item Value Reference Range Interpretation Comments Thrombin Time (test code = Thrombin 18.0 s 15.0-21.2 Time) [place] 088951-08-04 09:07:00 Test Item Value Reference Range Interpretation Comments PT (test code = PT) 24.6 s 12.0-14.7 [place] 088951-08-04 09:07:00 Test Item Value Reference Range Interpretation Comments INR (test code = INR) 2.31 1 0.85-1.17 [facility] HospitalOgitlsyFUFJKBRQNQ3038-64-40 09:07:00 Test Item Value Reference Range Interpretation Comments PTT (test code = PTT) 57.5 s 22.9-35.8 [facility] HospitalVmkiqtyIVPDFIPWVG5348-21-91 09:07:00 Test Item Value Reference Range Interpretation Comments Fibrinogen Lvl (test code = Fibrinogen 125 230-510 Lvl) [facility] HospitalDnwwpvbYTOJNGRAXI9261-37-10 09:07:00 Test Item Value Reference Range Interpretation Comments D-Dimer (test code = D-Dimer) 2.28 [facility] [id number] 09:07:00 Test Item Value Reference Range Interpretation Comments Amylase Lvl (test code = Amylase Lvl) 4 25-115 [facility] HospitalHgorlcaPGNPAWIKDJ0371-22-69 09:07:00 Test Item Value Reference Range Interpretation Comments Thrombin Time (test code = Thrombin 18.0 s 15.0-21.2 Time) [facility] HospitalLayykeaNEHDCGAVNM5873-72-79 09:07:00 Test Item Value Reference Range Interpretation Comments PT (test code = PT) 24.6 s 12.0-14.7 [facility] HospitalOhabnuhNKCCYQCVWN9365-84-05 09:07:00 Test Item Value Reference Range Interpretation Comments INR (test code = INR) 2.31 1 0.85-1.17 [facility] HospitalBwjbhnzRYYKCEEJGK8855-57-80 09:07:00 Test Item Value Reference Range Interpretation Comments PTT (test code = PTT) 57.5 s 22.9-35.8 [facility] HospitalGshausgDURQUOBYTT7434-97-69 09:07:00 Test Item Value Reference Range Interpretation Comments Fibrinogen Lvl (test code = Fibrinogen 125 230-510 Lvl) [facility] HospitalMxwdlnjYLRKLPFGHN9595-48-14 09:07:00 Test Item Value Reference Range Interpretation Comments D-Dimer (test code = D-Dimer) 2.28 [facility] [id number] 04:52:00 Test Item Value Reference Range Interpretation Comments RBC product (test code Product available = RBC product) (01/21/21 11:52 PM) [facility] [id number] 04:52:00 Test Item Value Reference Range Interpretation Comments RBC product (test code Product available = RBC product) (01/21/21 11:52 PM) [facility]annBL[facility] B[facility] [id number] 04:52:00 Test Item Value Reference Range Interpretation Comments RBC product (test code Product available = RBC product) (01/21/21 11:52 PM) [facility] [id number] 04:52:00 Test Item Value Reference Range Interpretation Comments RBC product (test code Product available = RBC product) (01/21/21 11:52 PM) [facility] [id number] 04:52:00 Test Item Value Reference Range Interpretation Comments RBC product (test code Product available = RBC product) (01/21/21 11:52 PM) [facility] DallasqLearningCARDIAC [id number] 00:38:00 Test Item Value Reference Range Interpretation Comments Troponin-I (test code no gt See_Comment [Auto mated message] The = Troponin-I) system which g enerated this result transmit rohit reference range : <=0.40. The reference r leo was not used to interpr et this result as reji l/abnormal. [facility] [employer] [id number] 00:38:00 Test Item Value Reference Range Interpretation Comments Troponin-I (test code no gt See_Comment [Auto mated message] The = Troponin-I) system which g enerated this result transmit rohit reference range : <=0.40. The reference r leo was not used to interpr et this result as reji l/abnormal. [employer] [id number] 00:38:00 Test Item Value Reference Range Interpretation Comments Troponin-I (test code no gt See_Comment [Auto mated message] The = Troponin-I) system which g enerated this result transmit rohit reference range : <=0.40. The reference r leo was not used to interpr et this result as reji l/abnormal. [facility] [employer] [id number] 00:38:00 Test Item Value Reference Range Interpretation Comments Troponin-I (test code no gt See_Comment [Auto mated message] The = Troponin-I) system which g enerated this result transmit rohit reference range : <=0.40. The reference r leo was not used to interpr et this result as reji l/abnormal. [facility] [employer]2021-08-04 00:38:00 Test Item Value Reference Range Interpretation Comments Troponin-I (test code no gt See_Comment [Auto mated message] The = Troponin-I) system which g enerated this result transmit rohit reference range : <=0.40. The reference r leo was not used to interpr et this result as reji l/abnormal. [facility] staila technologiesAC [id number] 17:47:00 Test Item Value Reference Range Interpretation Comments BNP (test code = BNP) 2323 [facility] DallasMoveableCode, Inc.AC [id number] 17:47:00 Test Item Value Reference Range Interpretation Comments Troponin-I (test code 0.02 See_Comment [Auto mated message] The = Troponin-I) system which g enerated this result transmit rohit reference range : <=0.40. The reference r leo was not used to interpr et this result as reji l/abnormal. [facility] [id number] 17:47:00 Test Item Value Reference Range Interpretation Comments Hep Bs Ag (test code Negative *NA*(01/21/21 = Hep Bs Ag) 12:47 PM) [facility] staila technologiesAC [id number] 17:47:00 Test Item Value Reference Range Interpretation Comments BNP (test code = BNP) 2323 [facility] staila technologiesAC [id number] 17:47:00 Test Item Value Reference Range Interpretation Comments Troponin-I (test code 0.02 See_Comment [Auto mated message] The = Troponin-I) system which g enerated this result transmit rohit reference range : <=0.40. The reference r leo was not used to interpr et this result as reji l/abnormal. [facility] [id number] 17:47:00 Test Item Value Reference Range Interpretation Comments Hep Bs Ag (test code Negative *NA*(01/21/21 = Hep Bs Ag) 12:47 PM) [facility] st[employer]a technologiesAC [id number] 17:47:00 Test Item Value Reference Range Interpretation Comments BNP (test code = BNP) 2323 [facility] [employer]AC [id number] 17:47:00 Test Item Value Reference Range Interpretation Comments Troponin-I (test code 0.02 See_Comment [Auto mated message] The = Troponin-I) system which g enerated this result transmit rohit reference range : <=0.40. The reference r leo was not used to interpr et this result as reji l/abnormal. [facility] [id number] 17:47:00 Test Item Value Reference Range Interpretation Comments Hep Bs Ag (test code Negative *NA*(01/21/21 = Hep Bs Ag) 12:47 PM) [facility] [employer] technologiesAC [id number] 17:47:00 Test Item Value Reference Range Interpretation Comments BNP (test code = BNP) 2324 [facility] staila technologiesAC [id number] 17:47:00 Test Item Value Reference Range Interpretation Comments Troponin-I (test code 0.02 See_Comment [Auto mated message] The = Troponin-I) system which g enerated this result transmit rohit reference range : <=0.40. The reference r leo was not used to interpr et this result as reji l/abnormal. [facility] [id number] 17:47:00 Test Item Value Reference Range Interpretation Comments Hep Bs Ag (test code Negative *NA*(01/21/21 = Hep Bs Ag) 12:47 PM) [facility] [employer]2021-08-03 17:47:00 Test Item Value Reference Range Interpretation Comments BNP (test code = BNP) 2324 [facility] [id number] 17:47:00 Test Item Value Reference Range Interpretation Comments Troponin-I (test code 0.02 See_Comment [Auto mated message] The = Troponin-I) system which g enerated this result transmit rohit reference range : <=0.40. The reference r leo was not used to interpr et this result as reji l/abnormal. [facility] [id number] 17:47:00 Test Item Value Reference Range Interpretation Comments Hep Bs Ag (test code Negative *NA*(01/21/21 = Hep Bs Ag) 12:47 PM) [facility] [employer] [id number] 17:43:00 Test Item Value Reference Range Interpretation Comments B/C Ratio (test code = B/C Ratio) 5 1 6-25 [facility] [employer] [id number] 17:43:00 Test Item Value Reference Range Interpretation Comments ALT (test code = ALT) 66 See_Comment [Auto mated message] The system which ge nerated this result transmit rohit reference range : <=65. The reference range was not used to interpr et this result as reji l/abnormal. [facility] DallasRoozz.com [id number] 17:43:00 Test Item Value Reference Range Interpretation Comments Albumin Lvl (test code = Albumin Lvl) 3.0 3.5-5.0 [facility] DallasRoozz.com [id number] 17:43:00 Test Item Value Reference Range Interpretation Comments Alk Phos (test code = Alk Phos) 40 39-136 [facility] DallasRoozz.com [id number] 17:43:00 Test Item Value Reference Range Interpretation Comments Bili Total (test code = Bili Total) 0.5 0.2-1.3 [facility] Resources[facility] [employer] [id number] 17:43:00 Test Item Value Reference Range Interpretation Comments Total Protein (test code = Total 5.7 6.4-8.4 Protein) [facility] DallasRoozz.[facility] [id number] 17:43:00 Test Item Value Reference Range Interpretation Comments AST (test code = AST) 52 See_Comment [Auto mated message] The system which ge nerated this result transmit rohit reference range : <=37. The reference range was not used to interpr et this result as reji l/abnormal. [facility] DallasRoozz.[facility] [id number] 17:43:00 Test Item Value Reference Range Interpretation Comments Globulin (test code = Globulin) 2.7 2.7-4.2 [facility] DallasRoozz.[facility] [id number] 17:43:00 Test Item Value Reference Range Interpretation Comments A/G Ratio (test code = A/G Ratio) 1.1 1 0.7-1.6 [facility] DallasR[facility] [id number] 17:43:00 Test Item Value Reference Range Interpretation Comments Lactic Acid Lvl (test code = Lactic 1.1 0.5-2.2 Acid Lvl) [facility] DallasR[facility] [id number] 17:43:00 Test Item Value Reference Range Interpretation Comments B/C Ratio (test code = B/C Ratio) 5 1 6-25 [facility] DallasR[facility] [id number] 17:43:00 Test Item Value Reference Range Interpretation Comments ALT (test code = ALT) 66 See_Comment [Auto mated message] The system which ge nerated this result transmit rohit reference range : <=65. The reference range was not used to interpr et this result as reji l/abnormal. [facility] [id number] 17:43:00 Test Item Value Reference Range Interpretation Comments Albumin Lvl (test code = Albumin Lvl) 3.0 3.5-5.0 [facility] DallasR[facility] [id number] 17:43:00 Test Item Value Reference Range Interpretation Comments Alk Phos (test code = Alk Phos) 40 39-136 [facility] DallasR[facility] [id number] 17:43:00 Test Item Value Reference Range Interpretation Comments Bili Total (test code = Bili Total) 0.5 0.2-1.3 [facility] DallasR[facility] [id number] 17:43:00 Test Item Value Reference Range Interpretation Comments Total Protein (test code = Total 5.7 6.4-8.4 Protein) [facility] [id number] 17:43:00 Test Item Value Reference Range Interpretation Comments AST (test code = AST) 52 See_Comment [Auto mated message] The system which ge nerated this result transmit rohit reference range : <=37. The reference range was not used to interpr et this result as reji l/abnormal. [facility] [id number] 17:43:00 Test Item Value Reference Range Interpretation Comments Globulin (test code = Globulin) 2.7 2.7-4.2 [facility] [id number] 17:43:00 Test Item Value Reference Range Interpretation Comments A/G Ratio (test code = A/G Ratio) 1.1 1 0.7-1.6 [facility] [id number] 17:43:00 Test Item Value Reference Range Interpretation Comments Lactic Acid Lvl (test code = Lactic 1.1 0.5-2.2 Acid Lvl) [facility] [id number] 17:43:00 Test Item Value Reference Range Interpretation Comments B/C Ratio (test code = B/C Ratio) 5 1 6-25 [facility] DallasR[facility] [id number] 17:43:00 Test Item Value Reference Range Interpretation Comments ALT (test code = ALT) 66 See_Comment [Auto mated message] The system which ge nerated this result transmit rohit reference range : <=65. The reference range was not used to interpr et this result as reji l/abnormal. [facility] [id number] 17:43:00 Test Item Value Reference Range Interpretation Comments Albumin Lvl (test code = Albumin Lvl) 3.0 3.5-5.0 [facility] [id number] 17:43:00 Test Item Value Reference Range Interpretation Comments Alk Phos (test code = Alk Phos) 40 39-136 [facility] [id number] 17:43:00 Test Item Value Reference Range Interpretation Comments Bili Total (test code = Bili Total) 0.5 0.2-1.3 [facility] [id number] 17:43:00 Test Item Value Reference Range Interpretation Comments Total Protein (test code = Total 5.7 6.4-8.4 Protein) [facility] [id number] 17:43:00 Test Item Value Reference Range Interpretation Comments AST (test code = AST) 52 See_Comment [Auto mated message] The system which ge nerated this result transmit rohit reference range : <=37. The reference range was not used to interpr et this result as reji l/abnormal. [facility] [id number] 17:43:00 Test Item Value Reference Range Interpretation Comments Globulin (test code = Globulin) 2.7 2.7-4.2 [facility] [id number] 17:43:00 Test Item Value Reference Range Interpretation Comments A/G Ratio (test code = A/G Ratio) 1.1 1 0.7-1.6 [facility] [id number] 17:43:00 Test Item Value Reference Range Interpretation Comments Lactic Acid Lvl (test code = Lactic 1.1 0.5-2.2 Acid Lvl) [facility] [id number] 17:43:00 Test Item Value Reference Range Interpretation Comments B/C Ratio (test code = B/C Ratio) 5 1 6-25 [facility] [id number] 17:43:00 Test Item Value Reference Range Interpretation Comments ALT (test code = ALT) 66 See_Comment [Auto mated message] The system which ge nerated this result transmit rohit reference range : <=65. The reference range was not used to interpr et this result as reji l/abnormal. [facility] [id number] 17:43:00 Test Item Value Reference Range Interpretation Comments Albumin Lvl (test code = Albumin Lvl) 3.0 3.5-5.0 [facility] [id number] 17:43:00 Test Item Value Reference Range Interpretation Comments Alk Phos (test code = Alk Phos) 40 39-136 [facility] [id number] 17:43:00 Test Item Value Reference Range Interpretation Comments Bili Total (test code = Bili Total) 0.5 0.2-1.3 [facility] [id number] 17:43:00 Test Item Value Reference Range Interpretation Comments Total Protein (test code = Total 5.7 6.4-8.4 Protein) [facility] [id number] 17:43:00 Test Item Value Reference Range Interpretation Comments AST (test code = AST) 52 See_Comment [Auto mated message] The system which ge nerated this result transmit rohit reference range : <=37. The reference range was not used to interpr et this result as reji l/abnormal. [facility] [employer] [id number] 17:43:00 Test Item Value Reference Range Interpretation Comments Globulin (test code = Globulin) 2.7 2.7-4.2 [facility] [employer] [id number] 17:43:00 Test Item Value Reference Range Interpretation Comments A/G Ratio (test code = A/G Ratio) 1.1 1 0.7-1.6 [facility] [id number] 17:43:00 Test Item Value Reference Range Interpretation Comments Lactic Acid Lvl (test code = Lactic 1.1 0.5-2.2 Acid Lvl) [facility] [id number] 17:43:00 Test Item Value Reference Range Interpretation Comments B/C Ratio (test code = B/C Ratio) 5 1 6-25 [facility] [id number] 17:43:00 Test Item Value Reference Range Interpretation Comments ALT (test code = ALT) 66 See_Comment [Auto mated message] The system which ge nerated this result transmit rohit reference range : <=65. The reference range was not used to interpr et this result as reji l/abnormal. [facility] [employer] [id number] 17:43:00 Test Item Value Reference Range Interpretation Comments Albumin Lvl (test code = Albumin Lvl) 3.0 3.5-5.0 [facility] [employer] [id number] 17:43:00 Test Item Value Reference Range Interpretation Comments Alk Phos (test code = Alk Phos) 40 39-136 [facility] [id number] 17:43:00 Test Item Value Reference Range Interpretation Comments Bili Total (test code = Bili Total) 0.5 0.2-1.3 [facility] [employer] [id number] 17:43:00 Test Item Value Reference Range Interpretation Comments Total Protein (test code = Total 5.7 6.4-8.4 Protein) [facility] [id number] 17:43:00 Test Item Value Reference Range Interpretation Comments AST (test code = AST) 52 See_Comment [Auto mated message] The system which ge nerated this result transmit rohit reference range : <=37. The reference range was not used to interpr et this result as reji l/abnormal. [facility] [employer] [id number] 17:43:00 Test Item Value Reference Range Interpretation Comments Globulin (test code = Globulin) 2.7 2.7-4.2 [facility] [employer] [id number] 17:43:00 Test Item Value Reference Range Interpretation Comments A/G Ratio (test code = A/G Ratio) 1.1 1 0.7-1.6 [facility] [employer] [id number] 17:43:00 Test Item Value Reference Range Interpretation Comments Lactic Acid Lvl (test code = Lactic 1.1 0.5-2.2 Acid Lvl) [facility] [employer] [id number] 16:20:00 Test Item Value Reference Range Interpretation Comments ABO/Rh (test code = ABO/Rh) B POS [facility] [employer] [id number] 16:20:00 Test Item Value Reference Range Interpretation Comments Antibody Scrn (test Negative (01/21/21 11:20 code = Antibody Scrn) AM) [facility] [id number] 16:20:00 Test Item Value Reference Range Interpretation Comments Anisocyte (test code = 1+ *ABN*(01/21/21 Anisocyte) 11:20 AM) [facility] [employer] [id number] 16:20:00 Test Item Value Reference Range Interpretation Comments ABO/Rh (test code = ABO/Rh) B POS [facility] DallasPlay It Interactive [id number] 16:20:00 Test Item Value Reference Range Interpretation Comments Antibody Scrn (test Negative (01/21/21 11:20 code = Antibody Scrn) AM) [facility] [id number] 16:20:00 Test Item Value Reference Range Interpretation Comments Anisocyte (test code = 1+ *ABN*(01/21/21 Anisocyte) 11:20 AM) [facility] [employer] [id number] 16:20:00 Test Item Value Reference Range Interpretation Comments ABO/Rh (test code = ABO/Rh) B POS [facility] [employer] [id number] 16:20:00 Test Item Value Reference Range Interpretation Comments Antibody Scrn (test Negative (01/21/21 11:20 code = Antibody Scrn) AM) [facility] [id number] 16:20:00 Test Item Value Reference Range Interpretation Comments Anisocyte (test code = 1+ *ABN*(01/21/21 Anisocyte) 11:20 AM) [facility] [employer] [id number] 16:20:00 Test Item Value Reference Range Interpretation Comments ABO/Rh (test code = ABO/Rh) B POS [facility] [employer] [id number] 16:20:00 Test Item Value Reference Range Interpretation Comments Antibody Scrn (test Negative (01/21/21 11:20 code = Antibody Scrn) AM) [facility] [id number] 16:20:00 Test Item Value Reference Range Interpretation Comments Anisocyte (test code = 1+ *ABN*(01/21/21 Anisocyte) 11:20 AM) [facility] [employer] [id number] 16:20:00 Test Item Value Reference Range Interpretation Comments ABO/Rh (test code = ABO/Rh) B POS [facility] [employer] [id number] 16:20:00 Test Item Value Reference Range Interpretation Comments Antibody Scrn (test Negative (01/21/21 11:20 code = Antibody Scrn) AM) [facility] [id number] 16:20:00 Test Item Value Reference Range Interpretation Comments Anisocyte (test code = 1+ *ABN*(01/21/21 Anisocyte) 11:20 AM) [facility] [id number] 15:35:00 Test Item Value Reference Range Interpretation Comments Lactase Lvl (test code = Lactase Lvl) 2.0 [facility] [id number] 15:35:00 Test Item Value Reference Range Interpretation Comments Sucrase Lvl (test code = Sucrase Lvl) 38.6 [facility] [id number] 15:35:00 Test Item Value Reference Range Interpretation Comments Maltase Lvl (test code = Maltase Lvl) 177.2 [facility] [id number] 15:35:00 Test Item Value Reference Range Interpretation Comments Palatinase Lvl (test code = Palatinase 13.8 Lvl) [facility] [id number] 15:35:00 Test Item Value Reference Range Interpretation Comments Lactase Lvl (test code = Lactase Lvl) 2.0 [facility] [id number] 15:35:00 Test Item Value Reference Range Interpretation Comments Sucrase Lvl (test code = Sucrase Lvl) 38.6 [facility] [id number] 15:35:00 Test Item Value Reference Range Interpretation Comments Maltase Lvl (test code = Maltase Lvl) 177.2 [facility] [id number] 15:35:00 Test Item Value Reference Range Interpretation Comments Palatinase Lvl (test code = Palatinase 13.8 Lvl) [facility] [id number] 15:35:00 Test Item Value Reference Range Interpretation Comments Lactase Lvl (test code = Lactase Lvl) 2.0 [facility] [id number] 15:35:00 Test Item Value Reference Range Interpretation Comments Sucrase Lvl (test code = Sucrase Lvl) 38.6 [facility]ann[facility] [id number] 15:35:00 Test Item Value Reference Range Interpretation Comments Maltase Lvl (test code = Maltase Lvl) 177.2 [facility]ann[facility] [id number] 15:35:00 Test Item Value Reference Range Interpretation Comments Palatinase Lvl (test code = Palatinase 13.8 Lvl) [facility]ann[facility] [id number] 15:35:00 Test Item Value Reference Range Interpretation Comments Lactase Lvl (test code = Lactase Lvl) 2.0 [facility] [id number] 15:35:00 Test Item Value Reference Range Interpretation Comments Sucrase Lvl (test code = Sucrase Lvl) 38.6 [facility] [id number] 15:35:00 Test Item Value Reference Range Interpretation Comments Maltase Lvl (test code = Maltase Lvl) 177.2 [facility] [id number] 15:35:00 Test Item Value Reference Range Interpretation Comments Palatinase Lvl (test code = Palatinase 13.8 Lvl) [facility] [id number] 15:35:00 Test Item Value Reference Range Interpretation Comments Lactase Lvl (test code = Lactase Lvl) 2.0 [facility] [id number] 15:35:00 Test Item Value Reference Range Interpretation Comments Sucrase Lvl (test code = Sucrase Lvl) 38.6 [facility] [id number] 15:35:00 Test Item Value Reference Range Interpretation Comments Maltase Lvl (test code = Maltase Lvl) 177.2 [facility] [id number] 15:35:00 Test Item Value Reference Range Interpretation Comments Palatinase Lvl (test code = Palatinase 13.8 Lvl) [facility] [id number] 13:21:00 Test Item Value Reference Range Interpretation Comments Potassium WB (test code = Potassium WB) 5.1 3.5-5.1 [facility] R[id number] 13:21:00 Test Item Value Reference Range Interpretation Comments S Preg (test code = S Negative 8*NA*(01/21/21 Preg) 8:21 AM) [id number] 13:21:00 Test Item Value Reference Range Interpretation Comments Potassium WB (test code = Potassium WB) 5.1 3.5-5.1 [place] [id number] 13:21:00 Test Item Value Reference Range Interpretation Comments S Preg (test code = S Negative 8*NA*(01/21/21 Preg) 8:21 AM) [facility] Ho[id number] 13:21:00 Test Item Value Reference Range Interpretation Comments Potassium WB (test code = Potassium WB) 5.1 3.5-5.1 [place] [id number] 13:21:00 Test Item Value Reference Range Interpretation Comments S Preg (test code = S Negative 8*NA*(01/21/21 Preg) 8:21 AM) [facility] H[id number] 13:21:00 Test Item Value Reference Range Interpretation Comments Potassium WB (test code = Potassium WB) 5.1 3.5-5.1 [place] [id number] 13:21:00 Test Item Value Reference Range Interpretation Comments S Preg (test code = S Negative 8*NA*(01/21/21 Preg) 8:21 AM) [facility] H[id number] 13:21:00 Test Item Value Reference Range Interpretation Comments Potassium WB (test code = Potassium WB) 5.1 3.5-5.1 [place] [id number] 13:21:00 Test Item Value Reference Range Interpretation Comments S Preg (test code = S Negative 8*NA*(01/21/21 Preg) 8:21 AM) [facility] [id number] 11:19:00 Test Item Value Reference Range Interpretation Comments Coronavirus (COVID-19) Not Detected (01/21/21 EMANUEL (test code = 6:19 AM) Coronavirus (COVID-19) E[facility]UEL[id number] 11:19:00 Test Item Value Reference Range Interpretation Comments Coronavirus (COVID-19) Not Detected (01/21/21 EMANUEL (test code = 6:19 AM) Coronavirus (COVID-19) EMANUEL) [id number] 11:19:00 Test Item Value Reference Range Interpretation Comments Coronavirus (COVID-19) Not Detected (01/21/21 EMANUEL (test code = 6:19 AM) Coronavirus (COVID-19) EMANUEL) [facility] Re[id number] 11:19:00 Test Item Value Reference Range Interpretation Comments Coronavirus (COVID-19) Not Detected (01/21/21 EMANUEL (test code = 6:19 AM) Coronavirus (COVID-19) EMANUEL) [id number] 11:19:00 Test Item Value Reference Range Interpretation Comments Coronavirus (COVID-19) Not Detected (01/21/21 EMANUEL (test code = 6:19 AM) Coronavirus (COVID-19) EMANUEL) [facility] [id number] 16:39:05 Test Item Value Reference Range Interpretation Comments Glucose POC (test 183 mg/dL 70-115 H If you con independent living instructor your code = Glucose POC) patient critically ill, the Merlin-Accu Check Infrom II meter should not be used for Glucose determination. Draw a venous Glucose and send to the main Lab for analysis. Urine Pqffufw3750-02-21 11:32:13 Test Item Value Reference Range Interpretation [...] Escherichia coli C Urine Added by GL_SJM_UA_CUL_INDPOC Scwiaop7087-94-98 07:52:10 Test Item Value Reference Range Interpretation Comments Glucose POC (test 160 mg/dL 70-115 H If you con independent living instructor your code = Glucose POC) patient critically ill, the Merlin-Accu Check Infrom II meter should not be used for Glucose determination. Draw a venous Glucose and send to the main Lab for analysis. POC [id number] 19:32:05 Test Item Value Reference Range Interpretation Comments Glucose POC (test 184 mg/dL 70-115 H If you con independent living instructor your code = Glucose POC) patient critically ill, the Merlin-Accu Check Infrom II meter should not be used for Glucose determination. Draw a venous Glucose and send to the main Lab for analysis. POC [id number] 17:16:35 Test Item Value Reference Range Interpretation Comments Glucose POC (test 281 mg/dL 70-115 H Notify RN or MDIf you code = Glucose POC) consider your patient critically ill, the Merlin-Accu Chec k Infrom II meter should not be used for Glucos e determination. Draw a venous Glucose and send to the main Lab for analysis. POC [id number] 12:00:38 Test Item Value Reference Range Interpretation Comments Glucose POC (test 138 mg/dL 70-115 H Notify RN or MDIf you code = Glucose POC) consider your patient critically ill, the Merlin-Accu Chec k Infrom II meter should not be used for Glucos e determination. Draw a venous Glucose and send to the main Lab for analysis. POC [id number] 07:41:32 Test Item Value Reference Range Interpretation Comments Glucose POC (test 206 mg/dL 70-115 H Notify RN or MDIf you code = Glucose POC) consider your patient critically ill, the Merlin-Accu Chec k Infrom II meter should not be used for Glucos e determination. Draw a venous Glucose and send to the main Lab for analysis. Urinalysis [id number] 21:07:21 Test Item Value Reference Range Interpretation Comments UA WBC (test code = UA WBC) TNTC 0-5 A UA RBC (test code = UA RBC) 6-10 0-5 A UA Bacteria (test code = UA Bacteria) Profuse A UA Squam Epithelial (test code = UA 6-10 A Squam Epithelial) Urinalysis with Culture, if [id number] 20:35:14 Test Item Value Reference Range Interpretation [...] Micro Indicated Not Indicated A Ind?) POC [id number] 19:06:34 Test Item Value Reference Range Interpretation Comments Glucose POC (test 207 mg/dL 70-115 H If you con independent living instructor your code = Glucose POC) patient critically ill, the Merlin-Accu Check Infrom II meter should not be used for Glucose determination. Draw a venous Glucose and send to the main Lab for analysis. POC [id number] 17:12:03 Test Item Value Reference Range Interpretation Comments Glucose POC (test 173 mg/dL 70-115 H Notify RN or MDIf you code = Glucose POC) consider your patient critically ill, the Merlin-Accu Chec k Infrom II meter should not be used for Glucos e determination. Draw a venous Glucose and send to the main Lab for analysis. POC [id number] 11:58:01 Test Item Value Reference Range Interpretation Comments Glucose POC (test 289 mg/dL 70-115 H Notify RN or MDIf you code = Glucose POC) consider your patient critically ill, the Merlin-Accu Chec k Infrom II meter should not be used for Glucos e determination. Draw a venous Glucose and send to the main Lab for analysis. POC [id number] 08:19:37 Test Item Value Reference Range Interpretation Comments Glucose POC (test 201 mg/dL 70-115 H Notify RN or MDIf you code = Glucose POC) consider your patient critically ill, the Merlin-Accu Chec k Infrom II meter should not be used for Glucos e determination. Draw a venous Glucose and send to the main Lab for analysis. POC [id number] 20:37:35 Test Item Value Reference Range Interpretation Comments Glucose POC (test 272 mg/dL 70-115 H If you con independent living instructor your code = Glucose POC) patient critically ill, the Merlin-Accu Check Infrom II meter should not be used for Glucose determination. Draw a venous Glucose and send to the main Lab for analysis. POC [id number] 17:23:05 Test Item Value Reference Range Interpretation Comments Glucose POC (test 229 mg/dL 70-115 H If you con independent living instructor your code = Glucose POC) patient critically ill, the Merlin-Accu Check Infrom II meter should not be used for Glucose determination. Draw a venous Glucose and send to the main Lab for analysis. POC [id number] 12:01:01 Test Item Value Reference Range Interpretation Comments Glucose POC (test 155 mg/dL 70-115 H If you con independent living instructor your code = Glucose POC) patient critically ill, the Merlin-Accu Check Infrom II meter should not be used for Glucose determination. Draw a venous Glucose and send to the main Lab for analysis. POC [id number] 08:07:32 Test Item Value Reference Range Interpretation Comments Glucose POC (test 248 mg/dL 70-115 H If you con independent living instructor your code = Glucose POC) patient critically ill, the Merlin-Accu Check Infrom II meter should not be used for Glucose determination. Draw a venous Glucose and send to the main Lab for analysis. IG [id number] 06:50:39 Test Item Value Reference Range Interpretation Comments IG (test code = IG) 0.7 % 0.0-5.0 IG Abs (test code = IG Abs) 0 x10 N Complete Blood Count with [id number] 06:50:38 Test Item Value Reference Range Interpretation [...] code = IPF) 0 % N Automated [id number] 06:50:38 Test Item Value Reference Range Interpretation Comments Neutro Auto (test code = Neutro 50.3 % 36.0-70.0 Auto) Lymph Auto (test code = Lymph Auto) 38.6 % 12.0-44.0 Candler Auto (test code = Candler Auto) 7.3 % 0.0-11.0 Eos, Auto (test code = Eos, Auto) 2.4 % 0.0-7.0 Basophil Auto (test code = Basophil 0.7 % 0.0-2.0 Auto) Neutro Absolute (test code = Neutro 3.0 x10 1.6-7.4 Absolute) Lymph Absolute (test code = Lymph 2.28 x10 .50-4.60 Absolute) Candler Absolute (test code = Candler .43 x10 .00-1.20 Absolute) Eos Absolute (test code = Eos 0.14 x10 0.00-0.74 Absolute) Baso Absolute (test code = Baso 0.04 x10 0.00-0.21 Absolute) Basic Metabolic [id number] 05:38:20 Test Item Value Reference Range Interpretation [...] = Lipemia) 0 mg/dL 8-11 Basic Metabolic [id number] 05:38:20 Test Item Value Reference Range Interpretation [...] = 0 mg/dL 8-11 Lipemia) Basic Metabolic [id number] 05:38:20 Test Item Value Reference Range Interpretation [...] ag e have not been validated by [facility] MDRD study and should be interpreted [...] ag e have not been validated by [facility] MDRD study and should be interpreted [...] code = 0 mg/dL 8-11 Lipemia) POC [id number] 20:28:33 Test Item Value Reference Range Interpretation Comments Glucose POC (test 169 mg/dL 70-115 H If you con independent living instructor your code = Glucose POC) patient critically ill, the Merlin-Accu Check Infrom II meter should not be used for Glucose determination. Draw a venous Glucose and send to the main Lab for analysis. POC [id number] 16:39:30 Test Item Value Reference Range Interpretation Comments Glucose POC (test 103 mg/dL 70-115 If you con independent living instructor your code = Glucose POC) patient critically ill, the Merlin-Accu Check Infrom II meter should not be used for Glucose determination. Draw a venous Glucose and send to the main Lab for analysis. RPR Ovrqnuaczma7284-12-18 12:08:56 Test Item Value Reference Range Interpretation Comments RPR Qual (test code = RPR Qual) Non-Reactive Non-Reactive Reactive Control (test code = Reactive Reactive Control) Weak Reactive Control (test Weak Reactive code = Weak Reactive Control) Non-Reactive Control (test code Non-Reactive = Non-Reactive Control) Lot # (test code = Lot #) [id number] N Expiration Dt (test code = 03-20-2021 N Expiration Dt) POC [id number] 11:52:31 Test Item Value Reference Range Interpretation Comments Glucose POC (test 250 mg/dL 70-115 H If you con independent living instructor your code = Glucose POC) patient critically ill, the Merlin-Accu Check Infrom II meter should not be used for Glucose determination. Draw a venous Glucose and send to the main Lab for analysis. POC [id number] 07:55:29 Test Item Value Reference Range Interpretation Comments Glucose POC (test 205 mg/dL 70-115 H If you con independent living instructor your code = Glucose POC) patient critically ill, the Merlin-Accu Check Infrom II meter should not be used for Glucose determination. Draw a venous Glucose and send to the main Lab for analysis. Lipid [id number] 05:46:04 Test Item Value Reference Range Interpretation [...] LDL/HDL Ratio=L DL Calc/HDL Chol Thyroid Stimulating [id number] 05:46:04 Test Item Value Reference Range Interpretation Comments TSH (test code = TSH) 3.274 mcIU/mL 0.550-4.780 Hemoglobin [id number] 05:41:08 Test Item Value Reference Range Interpretation Comments Hemoglobin A1c (test code 7.6 % 4.0-5.8 H Di abetic >=6.5 = Hemoglobin A1c) %Prediabet es 5.7-6.4 %Normal <5.7 % Hepatitis B Surface [id number] 21:19:36 Test Item Value Reference Range Interpretation Comments Hep Bs Ag (test code = Hep Bs Non-Reactive Non-Reactive Ag) Novel Coronavirus SARS-CoV-2, [id number] 11:16:16 Test Item Value Reference Range Interpretation [...] Emergency Use Authorization." Novel Coronavirus (COVID-19), EMANUEL [id number] 11:11:24TNPTest not sent and performed at [facility].Rapid was perfomed in Microbiology.Wrong covid test was ord ered.Urine DOA [id number] 00:17:49 Test Item Value Reference Range Interpretation [...] Propoxyphene Confirmation wi thin 7 days. Alcohol [id number] 00:17:29 Test Item Value Reference Range Interpretation Comments Ethanol Level 9.0 mg/dL N The pharmacolo gical (test code = response to blo od alcohol Ethanol Level) levels may va ry from individual to i ndividual. The fatal omkar ntration has been report ed to be >400 mg/dl. Comprehensive Metabolic [id number] 00:17:28 Test Item Value Reference Range Interpretation [...] = Lipemia) 0 g/dL 1-2 Comprehensive Metabolic [id number] 00:17:28 Test Item Value Reference Range Interpretation [...] = 0 g/dL 1-2 Lipemia) Comprehensive Metabolic [id number] 00:17:28 Test Item Value Reference Range Interpretation [...] g/dL 1-2 Lipemia) Complete Blood Count with [id number] 23:26:28 Test Item Value Reference Range Interpretation [...] code = IPF) 0 % N Automated [id number] 23:26:28 Test Item Value Reference Range Interpretation Comments Neutro Auto (test code = Neutro 67.1 % 36.0-70.0 Auto) Lymph Auto (test code = Lymph Auto) 23.3 % 12.0-44.0 Candler Auto (test code = Candler Auto) 5.8 % 0.0-11.0 Eos, Auto (test code = Eos, Auto) 2.3 % 0.0-7.0 Basophil Auto (test code = Basophil 0.8 % 0.0-2.0 Auto) Neutro Absolute (test code = Neutro 6.0 x10 1.6-7.4 Absolute) Lymph Absolute (test code = Lymph 2.10 x10 .50-4.60 Absolute) Candler Absolute (test code = Candler .52 x10 .00-1.20 Absolute) Eos Absolute (test code = Eos 0.21 x10 0.00-0.74 Absolute) Baso Absolute (test code = Baso 0.07 x10 0.00-0.21 Absolute) IG [id number] 23:26:28 Test Item Value Reference Range Interpretation Comments IG (test code = IG) 0.7 % 0.0-5.0 IG Abs (test code = IG Abs) 0 x10 N HERPES VIRUS ANTIBODY, [id number] 21:46:00 Test Item Value Reference Range Interpretation Comments HERPES VIRUS IGM (BEAKER) Negative SE E ATTACHMENT (test code = 1808) BLOOD [id number] 06:00:00 Test Item Value Reference Range Interpretation Comments CULTURE (BEAKER) (test No growth in 5 days code = 1095) BLOOD [id number] 06:00:00 Test Item Value Reference Range Interpretation Comments CULTURE (BEAKER) (test No growth in 5 days code = 1095) POCT-GLUCOSE [id number] 12:11:00 Test Item Value Reference Range Interpretation Comments POC-GLUCOSE METER 154 mg/dL 70-110 H TESTED AT [facility] 6720 (BEAKER) (test code = [facility] 1538) [address] POCT-GLUCOSE [id number] 07:53:00 Test Item Value Reference Range Interpretation Comments POC-GLUCOSE METER 87 mg/dL 70-110 [facility] [place] [address] [facility] (test code = [facility] [address] 1538) POCT-GLUCOSE [id number] 06:49:00 Test Item Value Reference Range Interpretation Comments POC-GLUCOSE METER 79 mg/dL 70-110 [facility] [place] [address] [facility] (test code = [facility] [address] 1538) COMPREHENSIVE METABOLIC [id number] 06:15:00 Test Item Value Reference Range Interpretation [...] S NOT APPLICABLE FOR DIALYSIS PATIEN TS. [id number] 06:11:00 Test Item Value Reference Range Interpretation Comments MAGNESIUM (BEAKER) (test code = 2.1 mg/dL 1.6-2.6 627) HEPATIC FUNCTION [id number] 06:11:00 Test Item Value Reference Range Interpretation [...] code = 513 U/L 6-55 H 347) [id number] 05:30:00 Test Item Value Reference Range Interpretation Comments FIBRINOGEN LEVEL (BEAKER) (test 368 mg/dl 225-434 code = 658) [id number] 05:30:00 Test Item Value Reference Range Interpretation Comments PARTIAL THROMBOPLASTIN TIME 42.2 seconds 22.5-36.0 H (BEAKER) (test code = 760) PROTHROMBIN [id number] 05:29:00 Test Item Value Reference Range Interpretation Comments PROTIME (BEAKER) (test code = 14.8 seconds 11.7-14.7 H 759) INR (BEAKER) (test code = 370) 1.2 <=5.9 RECOMMENDED COUMADIN/WARFARIN INR THERAPY RANGESSTANDARD DOSE: 2.0 - 3.0 Includes: PROPHYLAXIS for venous thrombosis, systemic embolization; TREATMENT for venous thrombosis and/or pulmonary embolus.HIGH RISK: Target INR is 2.5-3.5 for patients with mechanical heart valves.POCT-GLUCOSE [id number] 21:09:00 Test Item Value Reference Range Interpretation Comments POC-GLUCOSE METER 178 mg/dL 70-110 H TESTED AT [place] [address] ([facility]) (test code = [facility] 1538) [address] POCT-GLUCOSE [id number] 17:18:00 Test Item Value Reference Range Interpretation Comments POC-GLUCOSE METER 178 mg/dL 70-110 H TESTED AT [place] [address] ([facility]) (test code = [facility] 1538) [address] POCT-GLUCOSE [id number] 13:48:00 Test Item Value Reference Range Interpretation Comments POC-GLUCOSE METER 150 mg/dL 70-110 H TESTED AT [place] [address] ([facility]) (test code = [facility] 1538) [address] FACTOR 5 ACTIVITY (BLEEDING RISK)2017-01-06 10:04:00 Test Item Value Reference Range Interpretation Comments FACTOR V ACTIVITY ([facility]) (test code 90.0 % 60.0-150.0 = 665) Effective 10/24/2013: Reference Range Change-Adult onlyNew: 60.0-150.0 Previous: 50.0-150.0CYTOMEGALOVIRUS ANTIBODY, [id number] 09:42:00 Test Item Value Reference Range Interpretation Comments CYTOMEGALOVIRUS IGM ANTIBODY Negative ([facility]) (test code = 816) HERPES VIRUS ANTIBODY, [id number] 08:59:00 Test Item Value Reference Range Interpretation Comments 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[facility]) (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 G 1807) CYTOMEGALOVIRUS ANTIBODY, [id number] 08:59:00 Test Item Value Reference Range Interpretation Comments CYTOMEGALOVIRUS IGG ANTIBODY Positive ([facility]) (test code = 790) EBV-VCA ANTIBODY, [id number] 08:59:00 Test Item Value Reference Range Interpretation Comments JASE-WALL VCA IGG ([facility]) (test Positive code = 983) EBV-VCA ANTIBODY, [id number] 08:59:00 Test Item Value Reference Range Interpretation Comments JASE-WALL VCA IGM ([facility]) (test Negative code = 984) POCT-GLUCOSE [id number] 07:59:00 Test Item Value Reference Range Interpretation Comments POC-GLUCOSE METER 81 mg/dL 70-110 TESTED AT [facility] 6720 (BEAKER) (test code = [place] [address] 1538) COMPREHENSIVE METABOLIC [id number] 06:23:00 Test Item Value Reference Range Interpretation [...] 347) EGFR (BEAKER) (test 18 mL/min/1.73 ESTIMA ORHIT GFR IS code = 1092) sq m NOT ACCURATE CREATININE CLEARANCE IN PREDICTING GLOMERULAR FILTRATION RATE . ESTIMATED GFR I S NOT APPLICABLE FOR DIALYSIS PATIEN TS. [id number] 06:17:00 Test Item Value Reference Range Interpretation Comments MAGNESIUM (BEAKER) (test code = 1.8 mg/dL 1.6-2.6 627) HEPATIC FUNCTION [id number] 06:17:00 Test Item Value Reference Range Interpretation [...] code = 779 U/L 6-55 H 347) [id number] 06:00:00 Test Item Value Reference Range Interpretation Comments FIBRINOGEN LEVEL (BEAKER) (test 390 mg/dl 225-434 code = 658) [id number] 06:00:00 Test Item Value Reference Range Interpretation Comments PARTIAL THROMBOPLASTIN TIME 40.2 seconds 22.5-36.0 H (BEAKER) (test code = 760) PROTHROMBIN [id number] 05:59:00 Test Item Value Reference Range Interpretation Comments PROTIME (BEAKER) (test code = 14.6 seconds 11.7-14.7 759) INR (BEAKER) (test code = 370) 1.2 <=5.9 RECOMMENDED COUMADIN/WARFARIN INR THERAPY RANGESSTANDARD DOSE: 2.0 - 3.0 Includes: PROPHYLAXIS for venous thrombosis, systemic embolization; TREATMENT for venous thrombosis and/or pulmonary embolus.HIGH RISK: Target INR is 2.5-3.5 for patients with mechanical heart valves.POCT-GLUCOSE [id number] 21:46:00 Test Item Value Reference Range Interpretation Comments POC-GLUCOSE METER 153 mg/dL 70-110 H TESTED AT [facility] 6720 ([facility]) (test code = [place] 1538) [address] POCT-GLUCOSE [id number] 18:47:00 Test Item Value Reference Range Interpretation Comments POC-GLUCOSE METER 181 mg/dL 70-110 H TESTED AT [facility] 6720 (BEAKER) (test code = [place] [facility] 1538) [address] POCT-GLUCOSE [id number] 12:40:00 Test Item Value Reference Range Interpretation Comments POC-GLUCOSE METER 178 mg/dL 70-110 H TESTED AT [facility] 6720 (BEAKER) (test code = [place] [facility] 1538) [address] POCT-GLUCOSE [id number] 07:51:00 Test Item Value Reference Range Interpretation Comments POC-GLUCOSE METER 166 mg/dL 70-110 H TESTED AT [place] [address] (BEAKER) (test code = [facility] 1538) [address] COMPREHENSIVE METABOLIC [id number] 03:26:00 Test Item Value Reference Range Interpretation [...] S NOT APPLICABLE FOR DIALYSIS PATIEN TS. [id number] 03:22:00 Test Item Value Reference Range Interpretation Comments MAGNESIUM (BEAKER) (test code = 1.4 mg/dL 1.6-2.6 L 627) HEPATIC FUNCTION [id number] 03:22:00 Test Item Value Reference Range Interpretation [...] code = 1009 U/L 6-55 H 347) [id number] 03:12:00 Test Item Value Reference Range Interpretation Comments AMMONIA (BEAKER) (test code = 348) 29 mol/L 18-72 [id number] 03:10:00 Test Item Value Reference Range Interpretation Comments PARTIAL THROMBOPLASTIN TIME 42.3 seconds 22.5-36.0 H (BEAKER) (test code = 760) PROTHROMBIN [id number] 03:09:00 Test Item Value Reference Range Interpretation Comments PROTIME (BEAKER) (test code = 16.4 seconds 11.7-14.7 H 759) INR (BEAKER) (test code = 370) 1.3 <=5.9 RECOMMENDED COUMADIN/WARFARIN INR THERAPY RANGESSTANDARD DOSE: 2.0 - 3.0 Includes: PROPHYLAXIS for venous thrombosis, systemic embolization; TREATMENT for venous thrombosis and/or pulmonary embolus.HIGH RISK: Target INR is 2.5-3.5 for patients with mechanical heart valves.[id number] 03:09:00 Test Item Value Reference Range Interpretation Comments FIBRINOGEN LEVEL (BEAKER) (test 413 mg/dl 225-434 code = 658) CBC W/PLT COUNT & AUTO [id number] 03:09:00 Test Item Value Reference Range Interpretation [...] L 0.00-0.20 (test code = 417) 0.00POCT-GLUCOSE [id number] 22:33:00 Test Item Value Reference Range Interpretation Comments POC-GLUCOSE METER 230 mg/dL 70-110 H TESTED AT [facility] 6720 (BEAKER) (test code = [place] 1538) [address] POCT-GLUCOSE [id number] 18:17:00 Test Item Value Reference Range Interpretation Comments POC-GLUCOSE METER 222 mg/dL 70-110 H TESTED AT [facility] 6720 (BEAKER) (test code = [place] 1538) [address] COMPREHENSIVE METABOLIC [id number] 16:59:00 Test Item Value Reference Range Interpretation [...] PATIEN TS. PERIPHERAL BLOOD SMEAR - PATHOLOGIST [id number] 15:30:00 Test Item Value Reference Range Interpretation Comments RBC MORPHOLOGY Polychromasia (BEAKER) (test code = 2846) RBC MORPHOLOGY Anisocytosis (BEAKER) (test code = 46431) PERIPHERAL SMR REVIEW Cell counts confirmed (BEAKER) (test code = 1730) [id number] Josefina Lara M.D. ([facility]) (test code = (electronic signature) 5452) PROTHROMBIN [id number] 15:12:00 Test Item Value Reference Range Interpretation Comments PROTIME ([facility]) (test code = 16.6 seconds 11.7-14.7 H 759) INR ([facility]) (test code = 370) 1.4 <=5.9 RECOMMENDED COUMADIN/WARFARIN INR THERAPY RANGESSTANDARD DOSE: 2.0 - 3.0 Includes: PROPHYLAXIS for venous thrombosis, systemic embolization; TREATMENT for venous thrombosis and/or pulmonary embolus.HIGH RISK: Target INR is 2.5-3.5 for patients with mechanical heart valves.ANTI-NUCLEAR ANTIBODY (IVETTE)2017-01-04 14:32:00 Test Item Value Reference Range Interpretation Comments ANTI-NUCLEAR ANTIBODY (IVETTE) ([facility]) Negative Negative (test code = 418) POCT-GLUCOSE [id number] 12:47:00 Test Item Value Reference Range Interpretation Comments POC-GLUCOSE METER 212 mg/dL 70-110 H TESTED AT [facility] 6720 ([facility]) (test code = [place] 1538) [id number] 12:34:00 Test Item Value Reference Range Interpretation Comments RPR SCREEN ([facility]) (test code = Nonreactive Nonreactive 420) CLOSTRIDIUM DIFFICILE TOXIN [id number] 10:12:00 Test Item Value Reference Range Interpretation Comments CLOSTRIDIUM DIFFICILE TOXIN, PCR Not Detected Not Detected ([facility]) (test code = 1525) This qualitative [...] Reference Range Change-Adult onlyNew: 60.0-150.0 Previous: 50.0-150.0POCT-GLUCOSE [id number] 06:40:00 Test Item Value Reference Range Interpretation Comments POC-GLUCOSE METER 167 mg/dL 70-110 H TESTED AT [facility] 6720 ([facility]) (test code = [place] 1538) [address] COMPREHENSIVE METABOLIC [id number] 04:08:00 Test Item Value Reference Range Interpretation Comments TOTAL PROTEIN 4.7 gm/dL 6.0-8.3 L ([facility]) (test code = 770) ALBUMIN ([facility]) 2.1 g/dL 3.5-5.0 L (test code = 1145) ALKALINE PHOSPHATASE 71 U/L 40-150 (AKER) (test code = 346) BILIRUBIN TOTAL 2.6 mg/dL 0.2-1.2 H ([facility]) (test code = 377) SODIUM ([facility]) 140 meq/L 136-145 (test code = 381) [...] ESTIM ATED GFR. Specimen slightly ictericHEPATIC FUNCTION [id number] 04:06:00 Test Item Value Reference Range Interpretation [...] 1091 U/L 6-55 H 347) Specimen slightly [id number] 04:01:00 Test Item Value Reference Range Interpretation Comments FIBRINOGEN LEVEL (BEAKER) (test 379 mg/dl 225-434 code = 658) [id number] 04:01:00 Test Item Value Reference Range Interpretation Comments PARTIAL THROMBOPLASTIN TIME 40.7 seconds 22.5-36.0 H (BEAKER) (test code = 760) PROTHROMBIN TIME/[id number] 04:00:00 Test Item Value Reference Range Interpretation [...] mechanical heart valves.CBC W/PLT COUNT & AUTO [id number] 03:56:00 Test Item Value Reference Range Interpretation [...] L 0.00-0.20 (test code = 417) 0.00POCT-GLUCOSE [id number] 00:19:00 Test Item Value Reference Range Interpretation Comments POC-GLUCOSE METER 159 mg/dL 70-110 H TESTED AT [facility] (test code = [facility] 1538) [address] POCT-GLUCOSE [id number] 18:56:00 Test Item Value Reference Range Interpretation Comments POC-GLUCOSE METER 192 mg/dL 70-110 H TESTED AT [place] [address] ([facility]) (test code = [facility] 1538) [address] COMPREHENSIVE METABOLIC [id number] 16:55:00 Test Item Value Reference Range Interpretation [...] CALCULATE ESTIM ATED GFR. Specimen slightly ictericPROTHROMBIN [id number] 16:37:00 Test Item Value Reference Range Interpretation Comments PROTIME (BEAKER) (test code = 20.9 seconds 11.7-14.7 H 759) INR (BEAKER) (test code = 370) 1.8 <=5.9 RECOMMENDED COUMADIN/WARFARIN INR THERAPY RANGESSTANDARD DOSE: 2.0 - 3.0 Includes: PROPHYLAXIS for venous thrombosis, systemic embolization; TREATMENT for venous thrombosis and/or pulmonary embolus.HIGH RISK: Target INR is 2.5-3.5 for patients with mechanical heart valves.HEPATITIS B SURFACE [id number] 14:05:00 Test Item Value Reference Range Interpretation Comments HEPATITIS B SURFACE ANTIBODY < mIU/mL <8.0 (BEAKER) (test code = 647) HEPATITIS B CORE ANTIBODY, [id number] 13:43:00 Test Item Value Reference Range Interpretation Comments HEPATITIS B CORE TOTAL ANTIBODY Nonreactive Nonreactive (BEAKER) (test code = 497) BLOOD GAS, [id number] 13:35:00 Test Item Value Reference Range Interpretation [...] code = 1819) 28.0 % URINALYSIS W/ [id number] 13:16:00 Test Item Value Reference Range Interpretation [...] 1584) SOURCE(BEAKER) (test code = Urine, [place] 8512) VITAMIN D, 42-[id number] 13:14:00 Test Item Value Reference Range Interpretation Comments VITAMIN D 25-OH (BEAKER) (test code = < ng/mL 13.0-47.8 L 2764) ALPHA FETOPROTEIN (AFP), TUMOR [id number] 13:06:00 Test Item Value Reference Range Interpretation Comments ALPHA-FETOPROTEIN (BEAKER) (test code < ng/mL <10.0 = 1094) Effective 05/08/2014: Reference Range ChangeNew: <10.0 Previous: 0.0-8.0 HEMOGLOBIN [id number] 13:05:00 Test Item Value Reference Range Interpretation Comments HEMOGLOBIN A1C (BEAKER) (test code = 7.6 % 4.3-6.1 H 368) CARCINOEMBRYONIC ANTIGEN (CEA)2017-01-03 12:59:00 Test Item Value Reference Range Interpretation Comments CARCINOEMBRYONIC ANTIGEN (BEAKER) 2.0 ng/mL 0.0-5.0 (test code = 685) [id number] 12:59:00 Test Item Value Reference Range Interpretation Comments FERRITIN (BEAKER) (test code = 1841 ng/mL 5-275 H 361) Effective 05/08/2014: Reference Range ChangeNew: Male 5-275 Previous: Male 22- 322 Female 5-275 Female [id number] 12:58:00 Test Item Value Reference Range Interpretation Comments T4 TOTAL (BEAKER) (test code = 895) 4.5 ug/dL 4.9-11.7 L [id number] 12:58:00 Test Item Value Reference Range Interpretation Comments THYROID STIMULATING HORMONE 1.79 uIU/mL 0.35-4.94 (BEAKER) (test code = 772) [id number] 12:58:00 Test Item Value Reference Range Interpretation Comments T3 TOTAL (BEAKER) (test code = 656) 34 ng/dL 48-159 L Effective 05/08/2014: Reference Range ChangeNew: 48-159 Previous: 60-181CALCIUM, [id number] 12:47:00 Test Item Value Reference Range Interpretation Comments CALCIUM IONIZED (BEAKER) (test 1.05 mmol/L 1.12-1.27 L code = 698) PH, BLOOD (BEAKER) (test code = 7.43 1810) [id number] 12:42:00 Test Item Value Reference Range Interpretation [...] % 20-55 (test code = 2590) URIC [id number] 12:40:00 Test Item Value Reference Range Interpretation Comments URIC ACID (BEAKER) (test code = 16.0 mg/dL 2.6-7.2 H 773) Specimen slightly ictericLIPID [id number] 12:40:00 Test Item Value Reference Range Interpretation [...] 160-189 Very High >=190 Specimen slightly ictericBILIRUBIN, [id number] 12:40:00 Test Item Value Reference Range Interpretation Comments BILIRUBIN DIRECT (BEAKER) (test 2.4 mg/dL 0.1-0.5 H code = 706) GAMMA GLUTAMYL TRANSFERASE (GGT)2017-01-03 12:40:00 Test Item Value Reference Range Interpretation Comments GAMMA GLUTAMYL TRANSFERASE (BEAKER) 53 U/L 9-64 (test code = 364) Specimen slightly qadrzqbSWGOMHB4565-01-16 12:39:00 Test Item Value Reference Range Interpretation Comments ETHANOL (BEAKER) (test code = 400) < mg/dL <=10 SCREEN, [id number] 12:36:00 Test Item Value Reference Range Interpretation Comments TEST URINE (BEAKER) (test Negative code = 583) POCT-GLUCOSE [id number] 12:34:00 Test Item Value Reference Range Interpretation Comments POC-GLUCOSE METER 189 mg/dL 70-110 H TESTED AT [facility] 6720 ([place]) (test code = [place] 1538) [address] HIV-1 ANTIGEN WITH HIV-1/2 [id number] 11:58:00 Test Item Value Reference Range Interpretation Comments HIV-1 ANTIGEN WITH HIV 1\\T\\2 Nonreactive Nonreactive ANTIBODY (2) ([place]) (test code = 2586) TROPONIN [id number] 09:44:00 Test Item Value Reference Range Interpretation [...] H (test code = 380) CREATINE KINASE-MB ([place]) (test 5.6 ng/mL 0.0-6.6 code = 750) CREATINE KINASE-MB INDEX ([place]) 1.9 % (test code = 395) Effective 05/08/2014: CK-MB Reference Range ChangeNew: 0.0-6.6 Previous: 0.0-4.9CK-MB Reference Range:<6.7 Normal6.7-10.0 Borderline>10.0 Abnormal ACETAMINOPHEN [id number] 08:31:00 Test Item Value Reference Range Interpretation Comments ACETAMINOPHEN LEVEL ([place]) (test < ug/mL 10.0-30.0 L code = 344) TROPONIN [id number] 05:53:00 Test Item Value Reference Range Interpretation Comments TROPONIN I ([place]) (test code = 0.33 ng/mL 0.00-0.03 397) [...] acute neurological disease, and persistent tachyarrhythmia.BASIC METABOLIC [id number] 05:53:00 Test Item Value Reference Range Interpretation [...] TO CALCULA TE ESTIMATED GFR. Specimen slightly [id number] 05:52:00 Test Item Value Reference Range Interpretation Comments PHOSPHORUS (BEAKER) (test code = 5.7 mg/dL 2.3-4.7 H 604) HEPATIC FUNCTION [id number] 05:52:00 Test Item Value Reference Range Interpretation [...] Specimen slightly ictericCREATINE KINASE (CK), TOTAL AND [id number] 05:52:00 Test Item Value Reference Range Interpretation Comments CREATINE KINASE TOTAL (BEAKER) 341 U/L 29-200 H (test code = 380) CREATINE KINASE-MB (BEAKER) (test 5.4 ng/mL 0.0-6.6 code = 750) CREATINE KINASE-MB INDEX (BEAKER) 1.6 % (test code = 395) Effective 05/08/2014: CK-MB Reference Range ChangeNew: 0.0-6.6 Previous: 0.0-4.9CK-MB Reference Range:<6.7 Normal6.7-10.0 Borderline>10.0 Abnormal CBC W/PLT COUNT & AUTO [id number] 05:48:00 Test Item Value Reference Range Interpretation [...] K/ L 0.00-0.20 (test code = 417) 0.33JHPXGOTZAY6931-99-84 05:09:00 Test Item Value Reference Range Interpretation Comments FIBRINOGEN LEVEL (BEAKER) (test 427 mg/dl 225-434 code = 658) [id number] 05:09:00 Test Item Value Reference Range Interpretation Comments PARTIAL THROMBOPLASTIN TIME 36.2 seconds 22.5-36.0 H (BEAKER) (test code = 760) PROTHROMBIN [id number] 05:08:00 Test Item Value Reference Range Interpretation Comments PROTIME (BEAKER) (test code = 22.8 seconds 11.7-14.7 H 759) INR (BEAKER) (test code = 370) 2.0 <=5.9 RECOMMENDED COUMADIN/WARFARIN INR THERAPY RANGESSTANDARD DOSE: 2.0 - 3.0 Includes: PROPHYLAXIS for venous thrombosis, systemic embolization; TREATMENT for venous thrombosis and/or pulmonary embolus.HIGH RISK: Target INR is 2.5-3.5 for patients with mechanical heart valves.HEPATITIS PANEL, [id number] 03:40:00 Test Item Value Reference Range Interpretation Comments HEPATITIS A IGM ANTIBODY (BEAKER) Nonreactive Nonreactive (test code = 498) HEPATITIS B CORE IGM ANTIBODY Nonreactive Nonreactive (BEAKER) (test code = 645) HEPATITIS C ANTIBODY (BEAKER) Nonreactive Nonreactive (test code = 367) HEPATITIS B SURFACE ANTIGEN (2) Nonreactive Nonreactive (BEAKER) (test code = 2585) CREATININE, RANDOM [id number] 03:18:00 Test Item Value Reference Range Interpretation Comments CREATININE URINE (BEAKER) (test 118.7 mg/dL code = 375) Reference Range: No NormalsSODIUM, RANDOM [id number] 03:18:00 Test Item Value Reference Range Interpretation Comments SODIUM URINE (BEAKER) (test code = 60 meq/L 243) Reference Range: No NormalsUREA NITROGEN, RANDOM [id number] 03:18:00 Test Item Value Reference Range Interpretation Comments UREA NITROGEN URINE (BEAKER) (test 303 mg/dL code = 538) Reference Range: No [id number] 03:07:00 Test Item Value Reference Range Interpretation Comments AMMONIA (BEAKER) (test code = 348) 48 mol/L 18-72 [id number]-[id number] 02:57:00 Test Item Value Reference Range Interpretation [...] within 95-100% range. URINALYSIS W/ REFLEX URINE [id number] 02:53:00 Test Item Value Reference Range Interpretation [...] = 514) SOURCE(BEAKER) (test code = 2795) [id number] 02:49:00 Test Item Value Reference Range Interpretation Comments PARTIAL THROMBOPLASTIN TIME 39.4 seconds 22.5-36.0 H (BEAKER) (test code = 760) PROTHROMBIN TIME/[id number] 02:48:00 Test Item Value Reference Range Interpretation Comments PROTIME (BEAKER) (test code = 22.0 seconds 11.7-14.7 H 759) INR (BEAKER) (test code = 370) 1.9 <=5.9 RECOMMENDED COUMADIN/WARFARIN INR THERAPY RANGESSTANDARD DOSE: 2.0 - 3.0 Includes: PROPHYLAXIS for venous thrombosis, systemic embolization; TREATMENT for venous thrombosis and/or pulmonary embolus.HIGH RISK: Target INR is 2.5-3.5 for patients with mechanical heart valves.[id number] 02:48:00 Test Item Value Reference Range Interpretation Comments FIBRINOGEN LEVEL (BEAKER) (test 421 mg/dl 225-434 code = 658) BLOOD GAS, [id number] 02:43:00 Test Item Value Reference Range Interpretation [...] 21.0 % CBC W/PLT COUNT & AUTO [id number] 02:43:00 Test Item Value Reference Range Interpretation [...] code = 417) 0.00LACTIC ACID, VENOUS, WHOLE [id number] 02:35:00 Test Item Value Reference Range Interpretation Comments LACTATE BLOOD VENOUS (2) (BEAKER) 0.8 mmol/L 0.5-2.2 (test code = 2872) Effective 10/23/2015: Units/Reference Range ChangeNew: 0.5-2.2 mmol/L Previous: 5- 20 mg/dLSpecimen slightly uwuejrpMFJQAIKIAZGW9304-10-01 11:32:00 Test Item Value Reference Range Interpretation Comments AGAP (test code = AGAP) 14.6 10.0-20.0 [facility]ZxtxutkPAJODZZCPOSM1678-26-85 11:32:00 Test Item Value Reference Range Interpretation Comments eGFR (test code = eGFR) 33 [facility] HospitalTthvbuhQZTEODZNIJFP3284-00-25 11:32:00 Test Item Value Reference Range Interpretation Comments Calcium Lvl (test code = Calcium Lvl) 8.3 8.5-10.5 [facility] HospitalNjnipkxYVWBSOAHYAPQ3194-49-17 11:32:00 Test Item Value Reference Range Interpretation Comments Glucose Lvl (test code = Glucose Lvl) 81 70-99 [facility] HospitalNakgtjePAXQFQTPVCIX9552-21-90 11:32:00 Test Item Value Reference Range Interpretation Comments Creatinine Lvl (test code = Creatinine 1.95 0.50-1.40 Lvl) [facility] HospitalOfgvmfiYQIAIPOVNTNN2694-51-20 11:32:00 Test Item Value Reference Range Interpretation Comments BUN (test code = BUN) 55 7-22 [facility] HospitalTqxehpqNWURKMYPUDBX7359-06-77 11:32:00 Test Item Value Reference Range Interpretation Comments CO2 (test code = CO2) 19 24-32 [facility] HospitalVmsqopzNQMSENLUPZSO3802-57-64 11:32:00 Test Item Value Reference Range Interpretation Comments Chloride Lvl (test code = Chloride Lvl) 110 95-109 [facility] HospitalWhfbbgvPJFUCFBYKOJE5853-20-45 11:32:00 Test Item Value Reference Range Interpretation Comments Sodium Lvl (test code = Sodium Lvl) 139 135-145 [facility] HospitalZieoaorCSOKKJFSQPLA9134-98-50 11:32:00 Test Item Value Reference Range Interpretation Comments Potassium Lvl (test code = Potassium 4.6 3.5-5.1 Lvl) [facility] HospitalUuhxrtxMXPJBZPZRQ7471-64-59 11:32:00 Test Item Value Reference Range Interpretation Comments Lymphocytes (test code = Lymphocytes) 30.4 20.0-40.0 [facility] HospitalPrlxldaLSYOBPRJTZ4878-13-50 11:32:00 Test Item Value Reference Range Interpretation Comments Eosinophils (test code = 4.5 See_Comment [A utomated message] The Eosinophils) system which ge nerated this result tra nsmitted reference range : <=4.0. The reference r leo was not used to int erpret this result as normal/abnormal . [facility] HospitalZczoqohTEJBZYXQWI2545-46-38 11:32:00 Test Item Value Reference Range Interpretation Comments Monocytes (test code = Monocytes) 13.7 2.0-12.0 [facility] HospitalChfqamdVMVTAOULEK4455-67-38 11:32:00 Test Item Value Reference Range Interpretation Comments Segs-Bands # (test code = Segs-Bands #) 2.6 1.5-8.1 [facility] HospitalDkvvdrdIPXEAXDFZE4107-51-04 11:32:00 Test Item Value Reference Range Interpretation Comments Basophils (test code = 0.7 See_Comment [Aut omated message] The Basophils) system which ge nerated this result tra nsmitted reference range : <=1.0. The reference r leo was not used to int erpret this result as normal/abnormal . [facility] HospitalFdetdnkDSAJCHXDBC9119-77-19 11:32:00 Test Item Value Reference Range Interpretation Comments Monocytes # (test code 0.7 See_Comment [Aut omated message] The = Monocytes #) system which generated this result tra nsmitted reference range : <=0.8. The reference r leo was not used to int erpret this result as normal/abnormal . [facility] HospitalHdfyeotFWWYODXXRK1655-78-96 11:32:00 Test Item Value Reference Range Interpretation Comments Lymphocytes # (test code = Lymphocytes 1.6 1.0-5.5 #) [facility] HospitalTuzzjtaGEHIHUCEDW5777-45-70 11:32:00 Test Item Value Reference Range Interpretation Comments Eosinophils # (test code 0.2 See_Comment [A utomated message] The = Eosinophils #) system whic h generated this result tra nsmitted reference range : <=0.5. The reference r leo was not used to int erpret this result as normal/abnormal . [facility] HospitalMzaoznsMPMXKOCUXM5241-45-93 11:32:00 Test Item Value Reference Range Interpretation Comments Segs (test code = Segs) 50.7 45.0-75.0 [facility] HospitalXemymlmNOTGTGXKUR7682-36-88 11:32:00 Test Item Value Reference Range Interpretation [...] iron deficiency anemia, and renal disease. CPT: 22275 [facility] HospitalIjlbsnpLRDDNRNAUG5380-29-21 11:32:00 Test Item Value Reference Range Interpretation Comments Hct (test code = Hct) 28.1 36.0-48.0 [facility] HospitalIbmyokgNEBGSEWLTX1450-03-42 11:32:00 Test Item Value Reference Range Interpretation Comments RBC (test code = RBC) 3.39 4.20-5.40 [facility] HospitalEbtozqiPTRKEAQZWO3761-50-98 11:32:00 Test Item Value Reference Range Interpretation Comments Hgb (test code = Hgb) 8.9 12.0-16.0 [facility] HospitalBiyjkgcEMXZXTDUIG9955-31-59 11:32:00 Test Item Value Reference Range Interpretation Comments WBC (test code = WBC) 5.1 3.7-10.4 [facility] HospitalLduwinsHRSLEYYSBS8681-10-59 11:32:00 Test Item Value Reference Range Interpretation Comments MPV (test code = MPV) 11.3 7.4-10.4 [facility] HospitalEujnmedBYQRRBAGSD6298-30-18 11:32:00 Test Item Value Reference Range Interpretation Comments Platelet (test code = Platelet) 118 133-450 [facility] HospitalOmngfctHGIDUIJSAG2037-69-01 11:32:00 Test Item Value Reference Range Interpretation Comments MCHC (test code = MCHC) 31.8 32.0-36.0 [facility] HospitalEwgyozdJVJPGAPDLF0804-78-12 11:32:00 Test Item Value Reference Range Interpretation Comments RDW (test code = RDW) 18.0 11.5-14.5 [facility] HospitalTjhfffbMUFDUQJTSW6109-50-53 11:32:00 Test Item Value Reference Range Interpretation Comments MCV (test code = MCV) 83.0 80.0-98.0 [facility] HospitalGpgwzftCMGYYDCPPN2006-96-81 11:32:00 Test Item Value Reference Range Interpretation Comments MCH (test code = MCH) 26.4 pg 27.0-31.0 [facility]KidxpsmLORIPBRIDD0848-17-16 11:32:00 Test Item Value Reference Range Interpretation Comments C3 Complement (test code = C3 137 88-201 Complement) [facility] CenterDksrefgCCBCJIWQBS5052-95-16 11:32:00 Test Item Value Reference Range Interpretation Comments HIV. (test code = Negative *NA*(07/30/16 HIV.) 5:32 AM) [facility] HospitalLhkgfjaBBABDYIKDTMO0067-60-67 11:32:00 Test Item Value Reference Range Interpretation Comments AGAP (test code = AGAP) 14.6 10.0-20.0 [facility] HospitalCxikxwoSVLVOXAWLIAR7075-26-26 11:32:00 Test Item Value Reference Range Interpretation Comments eGFR (test code = eGFR) 33 [facility] HospitalVveqsplUUEGUTPHLIEF0687-76-10 11:32:00 Test Item Value Reference Range Interpretation Comments Calcium Lvl (test code = Calcium Lvl) 8.3 8.5-10.5 [facility] HospitalHewrmppSPBGKJPENEMW8490-06-19 11:32:00 Test Item Value Reference Range Interpretation Comments Glucose Lvl (test code = Glucose Lvl) 81 70-99 [facility] HospitalPsfkjsnJOHUQNSOSUAB9945-01-17 11:32:00 Test Item Value Reference Range Interpretation Comments Creatinine Lvl (test code = Creatinine 1.95 0.50-1.40 Lvl) [facility] HospitalYpusbfrVJQATCUERGDU0637-85-12 11:32:00 Test Item Value Reference Range Interpretation Comments BUN (test code = BUN) 55 7-22 [facility] HospitalQtlgtdlCNXJRAOGQQVV4477-30-56 11:32:00 Test Item Value Reference Range Interpretation Comments CO2 (test code = CO2) 19 24-32 [facility] HospitalVbstqtkEIBTALZFLRDN6162-52-44 11:32:00 Test Item Value Reference Range Interpretation Comments Chloride Lvl (test code = Chloride Lvl) 110 95-109 [facility] HospitalVnhtxjrGFVFYTTYVJQD5356-80-72 11:32:00 Test Item Value Reference Range Interpretation Comments Sodium Lvl (test code = Sodium Lvl) 139 135-145 [facility] HospitalQyhnyicAEITKKVIQBDJ6397-34-07 11:32:00 Test Item Value Reference Range Interpretation Comments Potassium Lvl (test code = Potassium 4.6 3.5-5.1 Lvl) [facility] HospitalBpuchvjCFGBRCDSRU5370-13-58 11:32:00 Test Item Value Reference Range Interpretation Comments Lymphocytes (test code = Lymphocytes) 30.4 20.0-40.0 [facility] HospitalAulnszwYYJJDUWFUH0385-69-51 11:32:00 Test Item Value Reference Range Interpretation Comments Eosinophils (test code = 4.5 See_Comment [A utomated message] The Eosinophils) system which ge nerated this result tra nsmitted reference range : <=4.0. The reference r leo was not used to int erpret this result as normal/abnormal . [facility] HospitalNkngktxHOSRVAAZAK1777-13-19 11:32:00 Test Item Value Reference Range Interpretation Comments Monocytes (test code = Monocytes) 13.7 2.0-12.0 [facility] HospitalPqgmgjpFRBNBTVSRA0363-90-55 11:32:00 Test Item Value Reference Range Interpretation Comments Segs-Bands # (test code = Segs-Bands #) 2.6 1.5-8.1 [facility] HospitalJkednisFGOXJHLUWL5302-72-54 11:32:00 Test Item Value Reference Range Interpretation Comments Basophils (test code = 0.7 See_Comment [Aut omated message] The Basophils) system which ge nerated this result tra nsmitted reference range : <=1.0. The reference r leo was not used to int erpret this result as normal/abnormal . [facility] HospitalEbbgubmCZAVIPXAZU3047-74-98 11:32:00 Test Item Value Reference Range Interpretation Comments Monocytes # (test code 0.7 See_Comment [Aut omated message] The = Monocytes #) system which generated this result tra nsmitted reference range : <=0.8. The reference r leo was not used to int erpret this result as normal/abnormal . [facility] HospitalYcdaxogUDZIIIOTBI9896-30-52 11:32:00 Test Item Value Reference Range Interpretation Comments Lymphocytes # (test code = Lymphocytes 1.6 1.0-5.5 #) [facility] HospitalVwyonlpXJBEXIWRJE0900-17-33 11:32:00 Test Item Value Reference Range Interpretation Comments Eosinophils # (test code 0.2 See_Comment [A utomated message] The = Eosinophils #) system whic h generated this result tra nsmitted reference range : <=0.5. The reference r leo was not used to int erpret this result as normal/abnormal . [facility] HospitalUpyjmrqJXINWMYCNM1514-86-33 11:32:00 Test Item Value Reference Range Interpretation Comments Segs (test code = Segs) 50.7 45.0-75.0 [facility] HospitalMtyxipnGXYPXCMSQB3405-27-57 11:32:00 Test Item Value Reference Range Interpretation [...] iron deficiency anemia, and renal disease. CPT: 04874 [facility] HospitalFcttoyeSSXYQIBAGA6142-39-01 11:32:00 Test Item Value Reference Range Interpretation Comments Hct (test code = Hct) 28.1 36.0-48.0 [facility] HospitalZsvtcmvLTYHWHVSVX3339-91-13 11:32:00 Test Item Value Reference Range Interpretation Comments RBC (test code = RBC) 3.39 4.20-5.40 [facility] HospitalQgludmdGKAMPEPRPN3705-67-14 11:32:00 Test Item Value Reference Range Interpretation Comments Hgb (test code = Hgb) 8.9 12.0-16.0 [facility] HospitalMyqylymFBUTMGHDQT9280-65-19 11:32:00 Test Item Value Reference Range Interpretation Comments WBC (test code = WBC) 5.1 3.7-10.4 [facility] HospitalTlppkmzAOODFWCDFQ3796-35-75 11:32:00 Test Item Value Reference Range Interpretation Comments MPV (test code = MPV) 11.3 7.4-10.4 [facility] HospitalPcvbfmfXVJNAJJWXN7533-68-23 11:32:00 Test Item Value Reference Range Interpretation Comments Platelet (test code = Platelet) 118 133-450 [facility] HospitalDzrhnueDXPYRBJODL8183-31-43 11:32:00 Test Item Value Reference Range Interpretation Comments MCHC (test code = MCHC) 31.8 32.0-36.0 [facility] HospitalZtprdgfXLRRAIRIUZ2475-57-17 11:32:00 Test Item Value Reference Range Interpretation Comments RDW (test code = RDW) 18.0 11.5-14.5 [facility] HospitalHxjohshGKQFWDVTXL6575-23-07 11:32:00 Test Item Value Reference Range Interpretation Comments MCV (test code = MCV) 83.0 80.0-98.0 [facility] HospitalCibmfgsAMTHSQJNOF4649-70-43 11:32:00 Test Item Value Reference Range Interpretation Comments MCH (test code = MCH) 26.4 pg 27.0-31.0 [facility]GcwvwqyYYIWADIPHR1371-07-21 11:32:00 Test Item Value Reference Range Interpretation Comments C3 Complement (test code = C3 137 88-201 Complement) [facility] CenterPqjqrdvAZSFEDHKZH7417-87-24 11:32:00 Test Item Value Reference Range Interpretation Comments HIV. (test code = Negative *NA*(07/30/16 HIV.) 5:32 AM) [facility] HospitalYnlwazmVKENEUYNGZKB1343-99-34 11:32:00 Test Item Value Reference Range Interpretation Comments AGAP (test code = AGAP) 14.6 10.0-20.0 [facility] HospitalCfypfafXXAAWTIMCLCY5574-40-90 11:32:00 Test Item Value Reference Range Interpretation Comments eGFR (test code = eGFR) 33 [facility] HospitalZiqaqnhKARNPIOTXHCD9736-09-16 11:32:00 Test Item Value Reference Range Interpretation Comments Calcium Lvl (test code = Calcium Lvl) 8.3 8.5-10.5 [facility] HospitalCavvrfdWCKMPCJLDEKZ2999-69-36 11:32:00 Test Item Value Reference Range Interpretation Comments Glucose Lvl (test code = Glucose Lvl) 81 70-99 [facility] HospitalRvqyqvpYNPYRROXISGR0712-00-66 11:32:00 Test Item Value Reference Range Interpretation Comments Creatinine Lvl (test code = Creatinine 1.95 0.50-1.40 Lvl) [facility] [facility]MslynsjMPXBCQWIPNQL5827-09-74 11:32:00 Test Item Value Reference Range Interpretation Comments BUN (test code = BUN) 55 7-22 [facility] HospitalTjpymnkAVUGHORAHZCT9562-33-44 11:32:00 Test Item Value Reference Range Interpretation Comments CO2 (test code = CO2) 19 24-32 [facility] HospitalNrplccdXKKRNHBPWAQQ0249-55-24 11:32:00 Test Item Value Reference Range Interpretation Comments Chloride Lvl (test code = Chloride Lvl) 110 95-109 [facility] HospitalBngwrhoJRFGKVASTMNA5529-56-00 11:32:00 Test Item Value Reference Range Interpretation Comments Sodium Lvl (test code = Sodium Lvl) 139 135-145 [facility] HospitalYonukueCJEHEKIJYYGT6146-62-49 11:32:00 Test Item Value Reference Range Interpretation Comments Potassium Lvl (test code = Potassium 4.6 3.5-5.1 Lvl) [facility]OvhpeiuCYVCHRFTPH7377-66-45 11:32:00 Test Item Value Reference Range Interpretation Comments Lymphocytes (test code = Lymphocytes) 30.4 20.0-40.0 [facility] HospitalHbixmcbLDTLVMYUOI9749-83-99 11:32:00 Test Item Value Reference Range Interpretation Comments Eosinophils (test code = 4.5 See_Comment [A utomated message] The Eosinophils) system which ge nerated this result tra nsmitted reference range : <=4.0. The reference r leo was not used to int erpret this result as normal/abnormal . [facility] HospitalQjdtchdPBGZNGWOGE6467-22-38 11:32:00 Test Item Value Reference Range Interpretation Comments Monocytes (test code = Monocytes) 13.7 2.0-12.0 [facility] HospitalYqezctuRCTUAVYBLO3146-77-22 11:32:00 Test Item Value Reference Range Interpretation Comments Segs-Bands # (test code = Segs-Bands #) 2.6 1.5-8.1 [facility] HospitalIposkdiQFVOXYAASN7661-39-28 11:32:00 Test Item Value Reference Range Interpretation Comments Basophils (test code = 0.7 See_Comment [Aut omated message] The Basophils) system which ge nerated this result tra nsmitted reference range : <=1.0. The reference r leo was not used to int erpret this result as normal/abnormal . [facility] HospitalCdzpszqOKQBUPKLMJ9569-69-03 11:32:00 Test Item Value Reference Range Interpretation Comments Monocytes # (test code 0.7 See_Comment [Aut omated message] The = Monocytes #) system which generated this result tra nsmitted reference range : <=0.8. The reference r leo was not used to int erpret this result as normal/abnormal . [facility] HospitalUrknxrgANIWDZFJVI2924-59-87 11:32:00 Test Item Value Reference Range Interpretation Comments Lymphocytes # (test code = Lymphocytes 1.6 1.0-5.5 #) [facility] HospitalZcjsmxcSITOMCLBBM7207-70-08 11:32:00 Test Item Value Reference Range Interpretation Comments Eosinophils # (test code 0.2 See_Comment [A utomated message] The = Eosinophils #) system whic h generated this result tra nsmitted reference range : <=0.5. The reference r leo was not used to int erpret this result as normal/abnormal . [facility] HospitalHlfjjlmOZXLQHROGR0300-97-15 11:32:00 Test Item Value Reference Range Interpretation Comments Segs (test code = Segs) 50.7 45.0-75.0 [facility] HospitalHtnuqyeARVXZUNGBA3494-75-21 11:32:00 Test Item Value Reference Range Interpretation [...] iron deficiency anemia, and renal disease. CPT: 46964 [facility] HospitalLormdqhPPLJNSOLFP5388-60-99 11:32:00 Test Item Value Reference Range Interpretation Comments Hct (test code = Hct) 28.1 36.0-48.0 [facility] HospitalWogfinxOYTQCSXGCN1412-07-65 11:32:00 Test Item Value Reference Range Interpretation Comments RBC (test code = RBC) 3.39 4.20-5.40 [facility] HospitalGsvyrolOHHWUZDPWV8244-57-33 11:32:00 Test Item Value Reference Range Interpretation Comments Hgb (test code = Hgb) 8.9 12.0-16.0 [facility] HospitalGqqgnbiLEDULWHHJD3005-52-92 11:32:00 Test Item Value Reference Range Interpretation Comments WBC (test code = WBC) 5.1 3.7-10.4 [facility] HospitalMinsepwZFPJDZPUXD7301-31-60 11:32:00 Test Item Value Reference Range Interpretation Comments MPV (test code = MPV) 11.3 7.4-10.4 [facility] HospitalEogpicxPBHMUSAJSG7911-81-91 11:32:00 Test Item Value Reference Range Interpretation Comments Platelet (test code = Platelet) 118 133-450 [facility] HospitalRheegxfRCASNXFGCT6478-57-71 11:32:00 Test Item Value Reference Range Interpretation Comments MCHC (test code = MCHC) 31.8 32.0-36.0 [facility] HospitalGlvmshdEZSPFCDJPP1402-28-81 11:32:00 Test Item Value Reference Range Interpretation Comments RDW (test code = RDW) 18.0 11.5-14.5 [facility] HospitalDkpzttaQDGWZUASLC4775-73-25 11:32:00 Test Item Value Reference Range Interpretation Comments MCV (test code = MCV) 83.0 80.0-98.0 [facility] HospitalRkoksntEZBCTZDDLH2361-89-21 11:32:00 Test Item Value Reference Range Interpretation Comments MCH (test code = MCH) 26.4 pg 27.0-31.0 [facility]TmtguhuLLKXBNECOC0990-84-08 11:32:00 Test Item Value Reference Range Interpretation Comments C3 Complement (test code = C3 137 88-201 Complement) [facility] CenterNkeqhtnPWGFSWKSQK0169-10-70 11:32:00 Test Item Value Reference Range Interpretation Comments HIV. (test code = Negative *NA*(07/30/16 HIV.) 5:32 AM) [facility] HospitalPtyoamsZITTKBZBPUMD1664-22-80 11:32:00 Test Item Value Reference Range Interpretation Comments AGAP (test code = AGAP) 14.6 10.0-20.0 [facility] HospitalMmkzjakCHPXJYCCIRMP1589-99-07 11:32:00 Test Item Value Reference Range Interpretation Comments eGFR (test code = eGFR) 33 [facility] HospitalApwuudnAJXBDYPDAHSW7977-98-36 11:32:00 Test Item Value Reference Range Interpretation Comments Calcium Lvl (test code = Calcium Lvl) 8.3 8.5-10.5 [facility] HospitalGbmgztsIRPOOXGSGQBN2559-27-19 11:32:00 Test Item Value Reference Range Interpretation Comments Glucose Lvl (test code = Glucose Lvl) 81 70-99 [facility] HospitalEuoofdiILTYNBZMRQWE1782-25-10 11:32:00 Test Item Value Reference Range Interpretation Comments Creatinine Lvl (test code = Creatinine 1.95 0.50-1.40 Lvl) [facility] HospitalHltxpadDUGSZNBPKGCS3064-70-21 11:32:00 Test Item Value Reference Range Interpretation Comments BUN (test code = BUN) 55 7-22 [facility] HospitalDtqfaroAZOKLJJKMYFB4345-37-37 11:32:00 Test Item Value Reference Range Interpretation Comments CO2 (test code = CO2) 19 24-32 [facility] HospitalWfakzfzXWRGONUANGPB8529-72-75 11:32:00 Test Item Value Reference Range Interpretation Comments Chloride Lvl (test code = Chloride Lvl) 110 95-109 [facility] HospitalNopbnojLJQFYKPYQLUM0052-76-42 11:32:00 Test Item Value Reference Range Interpretation Comments Sodium Lvl (test code = Sodium Lvl) 139 135-145 [facility] HospitalOtucnkeUIIDDDJOELVK4265-46-13 11:32:00 Test Item Value Reference Range Interpretation Comments Potassium Lvl (test code = Potassium 4.6 3.5-5.1 Lvl) [facility] HospitalKuwfcphGCXVVDGFCT7000-82-20 11:32:00 Test Item Value Reference Range Interpretation Comments Lymphocytes (test code = Lymphocytes) 30.4 20.0-40.0 [facility] HospitalZdykeyeBEUUJNSGFL3651-18-20 11:32:00 Test Item Value Reference Range Interpretation Comments Eosinophils (test code = 4.5 See_Comment [A utomated message] The Eosinophils) system which ge nerated this result tra nsmitted reference range : <=4.0. The reference r leo was not used to int erpret this result as normal/abnormal . [facility] HospitalSexgjuqOZZLCSANMJ3965-48-61 11:32:00 Test Item Value Reference Range Interpretation Comments Monocytes (test code = Monocytes) 13.7 2.0-12.0 [facility] HospitalGtewcfzBVZASNPQVK9165-16-15 11:32:00 Test Item Value Reference Range Interpretation Comments Segs-Bands # (test code = Segs-Bands #) 2.6 1.5-8.1 [facility] HospitalJjbbzxdJCGAWIWFYD2143-82-65 11:32:00 Test Item Value Reference Range Interpretation Comments Basophils (test code = 0.7 See_Comment [Aut omated message] The Basophils) system which ge nerated this result tra nsmitted reference range : <=1.0. The reference r leo was not used to int erpret this result as normal/abnormal . [facility] HospitalGlnhuctOCKUTBFJJN6353-29-99 11:32:00 Test Item Value Reference Range Interpretation Comments Monocytes # (test code 0.7 See_Comment [Aut omated message] The = Monocytes #) system which generated this result tra nsmitted reference range : <=0.8. The reference r leo was not used to int erpret this result as normal/abnormal . [facility] HospitalQpkepdhDJBQPTAZYW6098-82-78 11:32:00 Test Item Value Reference Range Interpretation Comments Lymphocytes # (test code = Lymphocytes 1.6 1.0-5.5 #) [facility] HospitalPdhvtsfVWGEFJHGHU8731-59-64 11:32:00 Test Item Value Reference Range Interpretation Comments Eosinophils # (test code 0.2 See_Comment [A utomated message] The = Eosinophils #) system whic h generated this result tra nsmitted reference range : <=0.5. The reference r leo was not used to int erpret this result as normal/abnormal . [facility] HospitalLundnslGLBXVBPGGY2235-53-37 11:32:00 Test Item Value Reference Range Interpretation Comments Segs (test code = Segs) 50.7 45.0-75.0 [facility] HospitalBovdjsmEXDQBWQICD8818-25-25 11:32:00 Test Item Value Reference Range Interpretation [...] iron deficiency anemia, and renal disease. CPT: 51602 [facility] HospitalFivkhjhAFBEJPTBHA3148-26-84 11:32:00 Test Item Value Reference Range Interpretation Comments Hct (test code = Hct) 28.1 36.0-48.0 [facility] HospitalHjlvmlsFNSLBIRCDF5926-81-85 11:32:00 Test Item Value Reference Range Interpretation Comments RBC (test code = RBC) 3.39 4.20-5.40 [facility] HospitalArouzowKAOIXNTZMU0983-26-88 11:32:00 Test Item Value Reference Range Interpretation Comments Hgb (test code = Hgb) 8.9 12.0-16.0 [facility] HospitalSwfelrkAIRXFGPVSL8613-20-22 11:32:00 Test Item Value Reference Range Interpretation Comments WBC (test code = WBC) 5.1 3.7-10.4 [facility] HospitalHofrpepLOSZUJPGHB0366-20-53 11:32:00 Test Item Value Reference Range Interpretation Comments MPV (test code = MPV) 11.3 7.4-10.4 [facility] HospitalDddbsmmSJUPDLFZYT1832-46-02 11:32:00 Test Item Value Reference Range Interpretation Comments Platelet (test code = Platelet) 118 133-450 [facility] HospitalDqvipimMRQHVLVNBV2352-18-90 11:32:00 Test Item Value Reference Range Interpretation Comments MCHC (test code = MCHC) 31.8 32.0-36.0 [facility] HospitalLupzpurAFSSWDAIHA7822-08-79 11:32:00 Test Item Value Reference Range Interpretation Comments RDW (test code = RDW) 18.0 11.5-14.5 [facility] HospitalGfjqqjwMQJIBCSBHG3703-47-22 11:32:00 Test Item Value Reference Range Interpretation Comments MCV (test code = MCV) 83.0 80.0-98.0 [facility] HospitalLheiynqJLCLOGGQZS2837-69-93 11:32:00 Test Item Value Reference Range Interpretation Comments MCH (test code = MCH) 26.4 pg 27.0-31.0 [facility] CenterBnscoacMHFDSNERNT3609-38-60 11:32:00 Test Item Value Reference Range Interpretation Comments C3 Complement (test code = C3 137 88-201 Complement) [facility] CenterTqbdxpuZWJIVDPUQB0911-43-66 11:32:00 Test Item Value Reference Range Interpretation Comments HIV. (test code = Negative *NA*(07/30/16 HIV.) 5:32 AM) [facility] HospitalHdbpfjkMYSSUKOGVDGL1854-11-86 11:32:00 Test Item Value Reference Range Interpretation Comments AGAP (test code = AGAP) 14.6 10.0-20.0 [facility] HospitalFbglwcxGIMTMOXKZRTE3462-51-89 11:32:00 Test Item Value Reference Range Interpretation Comments eGFR (test code = eGFR) 33 [facility] HospitalJsgoobhLXMTMMKBDODQ0550-46-90 11:32:00 Test Item Value Reference Range Interpretation Comments Calcium Lvl (test code = Calcium Lvl) 8.3 8.5-10.5 [facility] HospitalPpvisjtQGZIPTBNCBGC3946-71-68 11:32:00 Test Item Value Reference Range Interpretation Comments Glucose Lvl (test code = Glucose Lvl) 81 70-99 [facility] HospitalAwdxezlQGFAIIKWHWBO2385-07-20 11:32:00 Test Item Value Reference Range Interpretation Comments Creatinine Lvl (test code = Creatinine 1.95 0.50-1.40 Lvl) [facility] HospitalXynatcqVNZPGWFQAOKK6398-29-85 11:32:00 Test Item Value Reference Range Interpretation Comments BUN (test code = BUN) 55 7-22 [facility] HospitalKsqecsoHQZOMCHZAJNH9284-51-54 11:32:00 Test Item Value Reference Range Interpretation Comments CO2 (test code = CO2) 19 24-32 [facility] HospitalYqhhuhqSAQSVOJGPEMH2306-42-68 11:32:00 Test Item Value Reference Range Interpretation Comments Chloride Lvl (test code = Chloride Lvl) 110 95-109 [facility] HospitalTjgezkbQINSUMOUVLLV5920-63-49 11:32:00 Test Item Value Reference Range Interpretation Comments Sodium Lvl (test code = Sodium Lvl) 139 135-145 [facility] HospitalJpahnwpAOIGGNNYRDAZ2894-74-37 11:32:00 Test Item Value Reference Range Interpretation Comments Potassium Lvl (test code = Potassium 4.6 3.5-5.1 Lvl) [facility] HospitalKepqcnaLRKPUVKAYY2953-87-24 11:32:00 Test Item Value Reference Range Interpretation Comments Lymphocytes (test code = Lymphocytes) 30.4 20.0-40.0 [facility] HospitalHiouwgiVBOFCGKPZL6456-60-54 11:32:00 Test Item Value Reference Range Interpretation Comments Eosinophils (test code = 4.5 See_Comment [A utomated message] The Eosinophils) system which ge nerated this result tra nsmitted reference range : <=4.0. The reference r leo was not used to int erpret this result as normal/abnormal . [facility] HospitalYrruljbOYWSENDOPR0571-12-47 11:32:00 Test Item Value Reference Range Interpretation Comments Monocytes (test code = Monocytes) 13.7 2.0-12.0 [facility] HospitalTsbnefjUPXAUDRXRV4566-32-03 11:32:00 Test Item Value Reference Range Interpretation Comments Segs-Bands # (test code = Segs-Bands #) 2.6 1.5-8.1 [facility] HospitalIbkkbbvLHAMDLFBYU4153-75-62 11:32:00 Test Item Value Reference Range Interpretation Comments Basophils (test code = 0.7 See_Comment [Aut omated message] The Basophils) system which ge nerated this result tra nsmitted reference range : <=1.0. The reference r leo was not used to int erpret this result as normal/abnormal . [facility] HospitalIfobwyrPKPTWAUWKP9656-48-28 11:32:00 Test Item Value Reference Range Interpretation Comments Monocytes # (test code 0.7 See_Comment [Aut omated message] The = Monocytes #) system which generated this result tra nsmitted reference range : <=0.8. The reference r leo was not used to int erpret this result as normal/abnormal . [facility] HospitalEmagoihNACGXDPMHM9576-96-22 11:32:00 Test Item Value Reference Range Interpretation Comments Lymphocytes # (test code = Lymphocytes 1.6 1.0-5.5 #) [facility] HospitalBjuxvyvXZPRSBCVWS0417-93-41 11:32:00 Test Item Value Reference Range Interpretation Comments Eosinophils # (test code 0.2 See_Comment [A utomated message] The = Eosinophils #) system whic h generated this result tra nsmitted reference range : <=0.5. The reference r leo was not used to int erpret this result as normal/abnormal . [facility] HospitalHdrtpfbSYMKFQCFLN8563-66-81 11:32:00 Test Item Value Reference Range Interpretation Comments Segs (test code = Segs) 50.7 45.0-75.0 [facility] HospitalTstazuoGTJRXZMZYY1951-89-53 11:32:00 Test Item Value Reference Range Interpretation [...] iron deficiency anemia, and renal disease. CPT: 11697 [facility] HospitalIragfhdHNFIQZLTZH6242-87-81 11:32:00 Test Item Value Reference Range Interpretation Comments Hct (test code = Hct) 28.1 36.0-48.0 [facility] HospitalDvtxyykGYLFQQMNBH1029-13-92 11:32:00 Test Item Value Reference Range Interpretation Comments RBC (test code = RBC) 3.39 4.20-5.40 [facility] HospitalYoverjbEPHZGZPKIR9471-25-45 11:32:00 Test Item Value Reference Range Interpretation Comments Hgb (test code = Hgb) 8.9 12.0-16.0 [facility] HospitalGhsjdaqMFMXLWDNGU8875-47-81 11:32:00 Test Item Value Reference Range Interpretation Comments WBC (test code = WBC) 5.1 3.7-10.4 [facility] HospitalSiwuyyzMVZGVCDMJO7750-58-15 11:32:00 Test Item Value Reference Range Interpretation Comments MPV (test code = MPV) 11.3 7.4-10.4 [facility] HospitalYippaacGVVEUQZOWZ6729-42-38 11:32:00 Test Item Value Reference Range Interpretation Comments Platelet (test code = Platelet) 118 133-450 [facility] HospitalAucymqcOTWPOWYVRR5539-56-19 11:32:00 Test Item Value Reference Range Interpretation Comments MCHC (test code = MCHC) 31.8 32.0-36.0 [facility] HospitalCugrwbiOENUOXUSQN0176-10-10 11:32:00 Test Item Value Reference Range Interpretation Comments RDW (test code = RDW) 18.0 11.5-14.5 [facility] HospitalOohwcfrJVHFTAVORP0482-22-98 11:32:00 Test Item Value Reference Range Interpretation Comments MCV (test code = MCV) 83.0 80.0-98.0 [facility] HospitalZuqaoqnSVAGCSRTNJ0816-71-00 11:32:00 Test Item Value Reference Range Interpretation Comments MCH (test code = MCH) 26.4 pg 27.0-31.0 [facility] CenterPguagsrLEHVYFUQEE3298-56-12 11:32:00 Test Item Value Reference Range Interpretation Comments C3 Complement (test code = C3 137 88-201 Complement) [facility] CenterKguhsduJLYFZNAIHM8263-15-27 11:32:00 Test Item Value Reference Range Interpretation Comments HIV. (test code = Negative *NA*(07/30/16 HIV.) 5:32 AM) [facility] HospitalJnmesgnGGCFMURNTU5778-01-33 11:05:00 Test Item Value Reference Range Interpretation [...] iron deficiency anemia, and renal disease. CPT: 66331 [facility] CenterWrkywpxCSUXGHZDCL4416-76-04 11:05:00 Test Item Value Reference Range Interpretation Comments HIV. (test code = Negative *NA*(07/29/16 HIV.) 5:05 AM) [facility] CenterDqrngxiHRTGXIBUMJ5872-41-53 11:05:00 Test Item Value Reference Range Interpretation Comments C3 Complement (test code = C3 92 88-201 Complement) [facility] HospitalCnhenykOXVLUOGTIM3658-51-97 11:05:00 Test Item Value Reference Range Interpretation [...] iron deficiency anemia, and renal disease. CPT: 61292 [facility] CenterRcavvsxNRCDOSLERS4569-88-36 11:05:00 Test Item Value Reference Range Interpretation Comments HIV. (test code = Negative *NA*(07/29/16 HIV.) 5:05 AM) [facility] CenterUmbhdaxEPWYTJDENB2233-65-62 11:05:00 Test Item Value Reference Range Interpretation Comments C3 Complement (test code = C3 92 88-201 Complement) [facility] HospitalMkpxtqkMNEFMXGBXS1263-19-88 11:05:00 Test Item Value Reference Range Interpretation [...] iron deficiency anemia, and renal disease. C[facility] 83325 [facility]TMOPTZOUP6103[facility] 11:05:00 Test Item Value Reference Range Interpretation Comments HIV. (test code = Negative *NA*(07/29/16 HIV.) 5:05 AM) [facility] CenterGtrioehDCXJJLHYWF5654-29-29 11:05:00 Test Item Value Reference Range Interpretation Comments C3 Complement (test code = C3 92 88-201 Complement) [facility] HospitalAjkltlqFWKRWPWRRD0420-44-97 11:05:00 Test Item Value Reference Range Interpretation [...] iron deficiency anemia, and renal disease. CPT: 16541 [facility] CenterYuywsyuZXDXZGXTQE4128-45-64 11:05:00 Test Item Value Reference Range Interpretation Comments HIV. (test code = Negative *NA*(07/29/16 HIV.) 5:05 AM) [facility] CenterCmjqzmeCXJHZAWTHR9786-39-73 11:05:00 Test Item Value Reference Range Interpretation Comments C3 Complement (test code = C3 92 88-201 Complement) [facility] HospitalZrppjgfPGBWAAJHFE1167-45-49 11:05:00 Test Item Value Reference Range Interpretation [...] iron deficiency anemia, and renal disease. CPT: 99497 [facility] CenterEuqljozXASHDFRMUK7634-07-09 11:05:00 Test Item Value Reference Range Interpretation Comments HIV. (test code = Negative *NA*(07/29/16 HIV.) 5:05 AM) [facility] CenterSunuvcmXGFMZCOVUC2802-01-85 11:05:00 Test Item Value Reference Range Interpretation Comments C3 Complement (test code = C3 92 88-201 Complement) [facility] [employer] TYTVA0891-86-15 15:50:00 Test Item Value Reference Range Interpretation Comments eGFR (test code = eGFR) 25 [facility] [employer] SZQAH5709-41-67 15:50:00 Test Item Value Reference Range Interpretation Comments BUN (test code = BUN) 55 7-22 [facility]2017-02-07 15:50:00 Test Item Value Reference Range Interpretation Comments CO2 (test code = CO2) 23 24-32 [facility]2017-02-07 15:50:00 Test Item Value Reference Range Interpretation Comments Chloride Lvl (test code = Chloride Lvl) 109 95-109 [facility]2017-02-07 15:50:00 Test Item Value Reference Range Interpretation Comments Glucose Lvl (test code = Glucose Lvl) 101 70-99 [facility]2017-02-07 15:50:00 Test Item Value Reference Range Interpretation Comments Potassium Lvl (test code = Potassium 4.0 3.5-5.1 Lvl) [facility]2017-02-07 15:50:00 Test Item Value Reference Range Interpretation Comments Sodium Lvl (test code = Sodium Lvl) 141 135-145 [facility]2017-02-07 15:50:00 Test Item Value Reference Range Interpretation Comments AGAP (test code = AGAP) 13.0 10.0-20.0 [facility]2017-02-07 15:50:00 Test Item Value Reference Range Interpretation Comments Calcium Lvl (test code = Calcium Lvl) 7.7 8.5-10.5 [facility]2017-02-07 15:50:00 Test Item Value Reference Range Interpretation Comments Creatinine Lvl (test code = Creatinine 2.49 0.50-1.40 Lvl) [facility] HospitalNftcqvbZUXCSHFSRF4291-36-62 15:50:00 Test Item Value Reference Range Interpretation Comments PT (test code = PT) 14.8 s 12.0-14.7 [facility] HospitalWvjntwtXRAPHZKGLW7693-11-85 15:50:00 Test Item Value Reference Range Interpretation Comments PTT (test code = PTT) 40.8 s 22.9-35.8 [facility] HospitalNwhotegESXDSGRHKI9307-67-09 15:50:00 Test Item Value Reference Range Interpretation Comments INR (test code = INR) 1.14 0.85-1.17 [facility] ResourcesWqqrexoRYKHWJELTQ2767-88-68 15:50:00 Test Item Value Reference Range Interpretation Comments C3 Complement (test code = C3 94 88-201 Complement) [facility]2017-02-07 15:50:00 Test Item Value Reference Range Interpretation Comments eGFR (test code = eGFR) 25 [facility]2017-02-07 15:50:00 Test Item Value Reference Range Interpretation Comments BUN (test code = BUN) 55 7-22 [facility]2017-02-07 15:50:00 Test Item Value Reference Range Interpretation Comments CO2 (test code = CO2) 23 24-32 [facility]2017-02-07 15:50:00 Test Item Value Reference Range Interpretation Comments Chloride Lvl (test code = Chloride Lvl) 109 95-109 [facility]2017-02-07 15:50:00 Test Item Value Reference Range Interpretation Comments Glucose Lvl (test code = Glucose Lvl) 101 70-99 [facility]2017-02-07 15:50:00 Test Item Value Reference Range Interpretation Comments Potassium Lvl (test code = Potassium 4.0 3.5-5.1 Lvl) [facility]2017-02-07 15:50:00 Test Item Value Reference Range Interpretation Comments Sodium Lvl (test code = Sodium Lvl) 141 135-145 [facility]2017-02-07 15:50:00 Test Item Value Reference Range Interpretation Comments AGAP (test code = AGAP) 13.0 10.0-20.0 [facility]2017-02-07 15:50:00 Test Item Value Reference Range Interpretation Comments Calcium Lvl (test code = Calcium Lvl) 7.7 8.5-10.5 [facility]2017-02-07 15:50:00 Test Item Value Reference Range Interpretation Comments Creatinine Lvl (test code = Creatinine 2.49 0.50-1.40 Lvl) [facility] [facility]6482[facility]77-[facility] 15:50:00 Test Item Value Reference Range Interpretation Comments PT (test code = PT) 14.8 s 12.0-14.7 [facility]RkptjrnSRRHVEITQS9897-05-63 15:50:00 Test Item Value Reference Range Interpretation Comments PTT (test code = PTT) 40.8 s 22.9-35.8 [facility]OwlhjhmQGSRRVADHO0151-73-66 15:50:00 Test Item Value Reference Range Interpretation Comments INR (test code = INR) 1.14 0.85-1.17 [facility] ResourcesRkvevqrGLCBTGPEIK2497-53-41 15:50:00 Test Item Value Reference Range Interpretation Comments C3 Complement (test code = C3 94 88-201 Complement) [facility]2017-02-07 15:50:00 Test Item Value Reference Range Interpretation Comments eGFR (test code = eGFR) 25 [facility]2017-02-07 15:50:00 Test Item Value Reference Range Interpretation Comments BUN (test code = BUN) 55 7-22 [facility]2017-02-07 15:50:00 Test Item Value Reference Range Interpretation Comments CO2 (test code = CO2) 23 24-32 [facility]2017-02-07 15:50:00 Test Item Value Reference Range Interpretation Comments Chloride Lvl (test code = Chloride Lvl) 109 95-109 [facility]2017-02-07 15:50:00 Test Item Value Reference Range Interpretation Comments Glucose Lvl (test code = Glucose Lvl) 101 70-99 [facility]2017-02-07 15:50:00 Test Item Value Reference Range Interpretation Comments Potassium Lvl (test code = Potassium 4.0 3.5-5.1 Lvl) [facility]2017-02-07 15:50:00 Test Item Value Reference Range Interpretation Comments Sodium Lvl (test code = Sodium Lvl) 141 135-145 [facility]2017-02-07 15:50:00 Test Item Value Reference Range Interpretation Comments AGAP (test code = AGAP) 13.0 10.0-20.0 [facility]2017-02-07 15:50:00 Test Item Value Reference Range Interpretation Comments Calcium Lvl (test code = Calcium Lvl) 7.7 8.5-10.5 [facility]2017-02-07 15:50:00 Test Item Value Reference Range Interpretation Comments Creatinine Lvl (test code = Creatinine 2.49 0.50-1.40 Lvl) [facility]YlmjriyBTHPCCJZUU1989-61-62 15:50:00 Test Item Value Reference Range Interpretation Comments PT (test code = PT) 14.8 s 12.0-14.7 [facility] HospitalTtcnfjkHWSYQPJXWU5878-35-79 15:50:00 Test Item Value Reference Range Interpretation Comments PTT (test code = PTT) 40.8 s 22.9-35.8 [facility] HospitalRrttuhcJBKGBSIWEV5398-76-95 15:50:00 Test Item Value Reference Range Interpretation Comments INR (test code = INR) 1.14 0.85-1.17 [facility] ResourcesFhrwitaFLTJXYDSVE2724-47-47 15:50:00 Test Item Value Reference Range Interpretation Comments C3 Complement (test code = C3 94 88-201 Complement) [facility]2017-02-07 15:50:00 Test Item Value Reference Range Interpretation Comments eGFR (test code = eGFR) 25 [facility]2017-02-07 15:50:00 Test Item Value Reference Range Interpretation Comments BUN (test code = BUN) 55 7-22 [facility]2017-02-07 15:50:00 Test Item Value Reference Range Interpretation Comments CO2 (test code = CO2) 23 24-32 [facility]2017-02-07 15:50:00 Test Item Value Reference Range Interpretation Comments Chloride Lvl (test code = Chloride Lvl) 109 95-109 [facility]2017-02-07 15:50:00 Test Item Value Reference Range Interpretation Comments Glucose Lvl (test code = Glucose Lvl) 101 70-99 [facility]2017-02-07 15:50:00 Test Item Value Reference Range Interpretation Comments Potassium Lvl (test code = Potassium 4.0 3.5-5.1 Lvl) [facility]2017-02-07 15:50:00 Test Item Value Reference Range Interpretation Comments Sodium Lvl (test code = Sodium Lvl) 141 135-145 [facility]2017-02-07 15:50:00 Test Item Value Reference Range Interpretation Comments AGAP (test code = AGAP) 13.0 10.0-20.0 [facility]2017-02-07 15:50:00 Test Item Value Reference Range Interpretation Comments Calcium Lvl (test code = Calcium Lvl) 7.7 8.5-10.5 [facility]2017-02-07 15:50:00 Test Item Value Reference Range Interpretation Comments Creatinine Lvl (test code = Creatinine 2.49 0.50-1.40 Lvl) [facility] HospitalBqbegodRYPIJCENOD9024-52-17 15:50:00 Test Item Value Reference Range Interpretation Comments PT (test code = PT) 14.8 s 12.0-14.7 [facility] HospitalLzwojopQFJDGPFINX4827-45-88 15:50:00 Test Item Value Reference Range Interpretation Comments PTT (test code = PTT) 40.8 s 22.9-35.8 [facility] HospitalOmndsftGINAGRMRZO0354-35-21 15:50:00 Test Item Value Reference Range Interpretation Comments INR (test code = INR) 1.14 0.85-1.17 [facility] ResourcesMvwneddMCOCIKCAEB3230-01-88 15:50:00 Test Item Value Reference Range Interpretation Comments C3 Complement (test code = C3 94 88-201 Complement) [facility]2017-02-07 15:50:00 Test Item Value Reference Range Interpretation Comments eGFR (test code = eGFR) 25 [facility]2017-02-07 15:50:00 Test Item Value Reference Range Interpretation Comments BUN (test code = BUN) 55 7-22 [facility]2017-02-07 15:50:00 Test Item Value Reference Range Interpretation Comments CO2 (test code = CO2) 23 24-32 [facility]2017-02-07 15:50:00 Test Item Value Reference Range Interpretation Comments Chloride Lvl (test code = Chloride Lvl) 109 95-109 [facility]2017-02-07 15:50:00 Test Item Value Reference Range Interpretation Comments Glucose Lvl (test code = Glucose Lvl) 101 70-99 [facility]2017-02-07 15:50:00 Test Item Value Reference Range Interpretation Comments Potassium Lvl (test code = Potassium 4.0 3.5-5.1 Lvl) [facility]2017-02-07 15:50:00 Test Item Value Reference Range Interpretation Comments Sodium Lvl (test code = Sodium Lvl) 141 135-145 [facility]2017-02-07 15:50:00 Test Item Value Reference Range Interpretation Comments AGAP (test code = AGAP) 13.0 10.0-20.0 [facility]2017-02-07 15:50:00 Test Item Value Reference Range Interpretation Comments Calcium Lvl (test code = Calcium Lvl) 7.7 8.5-10.5 [facility]2017-02-07 15:50:00 Test Item Value Reference Range Interpretation Comments Creatinine Lvl (test code = Creatinine 2.49 0.50-1.40 Lvl) [facility] HospitalKcvvifrEKRMGXCVGB1249-51-69 15:50:00 Test Item Value Reference Range Interpretation Comments PT (test code = PT) 14.8 s 12.0-14.7 [facility] HospitalMzwwlefPGZESGAUWV9364-66-55 15:50:00 Test Item Value Reference Range Interpretation Comments PTT (test code = PTT) 40.8 s 22.9-35.8 [facility] HospitalPolljunONWGBJHZOU1457-57-51 15:50:00 Test Item Value Reference Range Interpretation Comments INR (test code = INR) 1.14 0.85-1.17 [facility] ResourcesTmehaoaFGDLQCYZOB8203-40-49 15:50:00 Test Item Value Reference Range Interpretation Comments C3 Complement (test code = C3 94 88-201 Complement) [facility] HospitalUtspodfOFOLBXWTWO9546-03-25 10:35:00 Test Item Value Reference Range Interpretation Comments Lymphocytes # (test code = Lymphocytes 1.7 1.0-5.5 #) [facility] HospitalVcynsmlIWFFHIKKYL3993-87-89 10:35:00 Test Item Value Reference Range Interpretation Comments Segs-Bands # (test code = Segs-Bands #) 2.7 1.5-8.1 [facility] HospitalRgjbttfWRPRTMYQHB8582-39-63 10:35:00 Test Item Value Reference Range Interpretation Comments Eosinophils # (test code 0.1 See_Comment [A utomated message] The = Eosinophils #) system whic h generated this result tra nsmitted reference range : <=0.5. The reference r leo was not used to int erpret this result as normal/abnormal . [facility] HospitalTtfrrajUPSNKHNAWH3252-79-00 10:35:00 Test Item Value Reference Range Interpretation Comments Monocytes # (test code 0.7 See_Comment [Aut omated message] The = Monocytes #) system which generated this result tra nsmitted reference range : <=0.8. The reference r leo was not used to int erpret this result as normal/abnormal . [facility] HospitalHuzizldGXKHVHPIMH2037-94-91 10:35:00 Test Item Value Reference Range Interpretation Comments Segs (test code = Segs) 51.3 45.0-75.0 [facility] HospitalJmlpfykDPVFKUAAJN6024-89-92 10:35:00 Test Item Value Reference Range Interpretation Comments Lymphocytes (test code = Lymphocytes) 31.6 20.0-40.0 [facility] HospitalMkpcpukEQMEOPYCVO1970-47-68 10:35:00 Test Item Value Reference Range Interpretation Comments Monocytes (test code = Monocytes) 14.1 2.0-12.0 [facility] HospitalCtowzmuUPIFZQCNCG0616-24-48 10:35:00 Test Item Value Reference Range Interpretation Comments Eosinophils (test code = 2.6 See_Comment [A utomated message] The Eosinophils) system which ge nerated this result tra nsmitted reference range : <=4.0. The reference r leo was not used to int erpret this result as normal/abnormal . [facility] HospitalXuijsdyYVWOXGCBZY2679-88-36 10:35:00 Test Item Value Reference Range Interpretation Comments Basophils (test code = 0.4 See_Comment [Aut omated message] The Basophils) system which ge nerated this result tra nsmitted reference range : <=1.0. The reference r leo was not used to int erpret this result as normal/abnormal . [facility] HospitalMarhdqcMXZZJLWNLK0147-41-06 10:35:00 Test Item Value Reference Range Interpretation Comments PB Smear Path Peripheral blood smear shows (test code = PB hypochromic normocytic Smear Path) anemia with anisopoikilocytsosis, no increase in schistocytes, slight polychromasia, a few estella cells, moderate thrombocytopenia. Impression: (1) no evidence of microangiopathic hemolysis, (2) RBC morphology is suggestive of anemia of chronic disease or iron deficiency anemia, and renal disease. CPT: 43317 [facility] HospitalYnbrbvsJQRJHPWIBD0973-68-51 10:35:00 Test Item Value Reference Range Interpretation Comments Hct (test code = Hct) 29.3 36.0-48.0 [facility] HospitalRaplzhzDSGAAURJAH0641-95-63 10:35:00 Test Item Value Reference Range Interpretation Comments Hgb (test code = Hgb) 9.2 12.0-16.0 [facility] HospitalFnyxljmEYKAJRBSTO1707-29-19 10:35:00 Test Item Value Reference Range Interpretation Comments RBC (test code = RBC) 3.54 4.20-5.40 [place] [address]-02-07 10:35:00 Test Item Value Reference Range Interpretation Comments WBC (test code = WBC) 5.3 3.7-10.4 [facility] HospitalQolambkLHABJEKZNA5991-84-01 10:35:00 Test Item Value Reference Range Interpretation Comments Platelet (test code = Platelet) 87 133-450 [facility] HospitalVgdszziUUKZDHLXVB0854-89-61 10:35:00 Test Item Value Reference Range Interpretation Comments MCHC (test code = MCHC) 31.4 32.0-36.0 [facility] HospitalWglaoxfKQKVIVQZMZ2292-50-98 10:35:00 Test Item Value Reference Range Interpretation Comments RDW (test code = RDW) 17.9 11.5-14.5 [facility] HospitalRkkfautUOKDXKLLBQ9801-27-14 10:35:00 Test Item Value Reference Range Interpretation Comments MPV (test code = MPV) 10.9 7.4-10.4 [facility] HospitalPutmavaVBYQAVAPBA8115-53-71 10:35:00 Test Item Value Reference Range Interpretation Comments MCH (test code = MCH) 26.0 pg 27.0-31.0 [facility] HospitalUefxmmzTUZMAQYNLR5132-17-59 10:35:00 Test Item Value Reference Range Interpretation Comments MCV (test code = MCV) 82.8 80.0-98.0 [facility] ResourcesPaxytidTUTVRZDLVZ2437-54-36 10:35:00 Test Item Value Reference Range Interpretation Comments HIV. (test code = Negative *NA*(07/28/16 HIV.) 4:35 AM) [facility] HospitalGndbaegRKGCZRXKBS6856-00-51 10:35:00 Test Item Value Reference Range Interpretation Comments Lymphocytes # (test code = Lymphocytes 1.7 1.0-5.5 #) [facility] HospitalTjxmaytMXESXRFBQJ5151-24-61 10:35:00 Test Item Value Reference Range Interpretation Comments Segs-Bands # (test code = Segs-Bands #) 2.7 1.5-8.1 [facility] HospitalIroxkbgBONWCVVQGU2884-82-87 10:35:00 Test Item Value Reference Range Interpretation Comments Eosinophils # (test code 0.1 See_Comment [A utomated message] The = Eosinophils #) system whic h generated this result tra nsmitted reference range : <=0.5. The reference r leo was not used to int erpret this result as normal/abnormal . [facility] HospitalNnhjdqaCXHKDRJMCP5357-33-93 10:35:00 Test Item Value Reference Range Interpretation Comments Monocytes # (test code 0.7 See_Comment [Aut omated message] The = Monocytes #) system which generated this result tra nsmitted reference range : <=0.8. The reference r leo was not used to int erpret this result as normal/abnormal . [facility] HospitalMvfvqimRBXCRYKIQN5390-30-96 10:35:00 Test Item Value Reference Range Interpretation Comments Segs (test code = Segs) 51.3 45.0-75.0 [facility] HospitalNkqvhmmBCXHMURDPP2996-63-01 10:35:00 Test Item Value Reference Range Interpretation Comments Lymphocytes (test code = Lymphocytes) 31.6 20.0-40.0 [facility] HospitalTbibqfrEZLSRTZUCX4334-09-04 10:35:00 Test Item Value Reference Range Interpretation Comments Monocytes (test code = Monocytes) 14.1 2.0-12.0 [facility] HospitalEvgwbpuVJEEZKJZJR4742-90-30 10:35:00 Test Item Value Reference Range Interpretation Comments Eosinophils (test code = 2.6 See_Comment [A utomated message] The Eosinophils) system which ge nerated this result tra nsmitted reference range : <=4.0. The reference r leo was not used to int erpret this result as normal/abnormal . [facility] HospitalYqeqkmmTKUJFMMHFF9699-46-88 10:35:00 Test Item Value Reference Range Interpretation Comments Basophils (test code = 0.4 See_Comment [Aut omated message] The Basophils) system which ge nerated this result tra nsmitted reference range : <=1.0. The reference r leo was not used to int erpret this result as normal/abnormal . [facility] HospitalWztpzyvYCTEWXKVWT7420-77-93 10:35:00 Test Item Value Reference Range Interpretation Comments PB Smear Path Peripheral blood smear shows (test code = PB hypochromic normocytic Smear Path) anemia with anisopoikilocytsosis, no increase in schistocytes, slight polychromasia, a few estella cells, moderate thrombocytopenia. Impression: (1) no evidence of microangiopathic hemolysis, (2) RBC morphology is suggestive of anemia of chronic disease or iron deficiency anemia, and renal disease. CPT: 69701 [facility] HospitalSvprzuuARELSETLMP9982-73-77 10:35:00 Test Item Value Reference Range Interpretation Comments Hct (test code = Hct) 29.3 36.0-48.0 [facility] HospitalHmiycgeKPVHRMODTE5745-31-10 10:35:00 Test Item Value Reference Range Interpretation Comments Hgb (test code = Hgb) 9.2 12.0-16.0 [facility] HospitalYpohcecJDUTROGWDL7649-75-93 10:35:00 Test Item Value Reference Range Interpretation Comments RBC (test code = RBC) 3.54 4.20-5.40 [facility] HospitalKlenbshNXTCHUDGNB5383-65-14 10:35:00 Test Item Value Reference Range Interpretation Comments WBC (test code = WBC) 5.3 3.7-10.4 [facility] HospitalAtiinooUTWXTXOJUF5546-29-82 10:35:00 Test Item Value Reference Range Interpretation Comments Platelet (test code = Platelet) 87 133-450 [facility] HospitalOkftqgyMZNSPGUEZI6676-04-87 10:35:00 Test Item Value Reference Range Interpretation Comments MCHC (test code = MCHC) 31.4 32.0-36.0 [facility] HospitalAfcakllGDNPYRGSMO5597-18-98 10:35:00 Test Item Value Reference Range Interpretation Comments RDW (test code = RDW) 17.9 11.5-14.5 [facility] HospitalTjrhpapTPHWUSNNLO6065-03-96 10:35:00 Test Item Value Reference Range Interpretation Comments MPV (test code = MPV) 10.9 7.4-10.4 [facility] HospitalAgligcxBRPVUZOSXD7032-00-47 10:35:00 Test Item Value Reference Range Interpretation Comments MCH (test code = MCH) 26.0 pg 27.0-31.0 [facility] HospitalLxbbbalHMETDYZIJX0817-69-27 10:35:00 Test Item Value Reference Range Interpretation Comments MCV (test code = MCV) 82.8 80.0-98.0 [facility] ResourcesQbuwhpsVWECKJVPFR9699-37-09 10:35:00 Test Item Value Reference Range Interpretation Comments HIV. (test code = Negative *NA*(07/28/16 HIV.) 4:35 AM) [facility] HospitalHcdqtwaUCAUSKDTFY9333-86-52 10:35:00 Test Item Value Reference Range Interpretation Comments Lymphocytes # (test code = Lymphocytes 1.7 1.0-5.5 #) [facility] HospitalDmqcdazFJNRDSMEMP2817-66-95 10:35:00 Test Item Value Reference Range Interpretation Comments Segs-Bands # (test code = Segs-Bands #) 2.7 1.5-8.1 [facility] HospitalXabtuhsWGQMNQKSST4586-23-63 10:35:00 Test Item Value Reference Range Interpretation Comments Eosinophils # (test code 0.1 See_Comment [A utomated message] The = Eosinophils #) system whic h generated this result tra nsmitted reference range : <=0.5. The reference r leo was not used to int erpret this result as normal/abnormal . [facility] HospitalXmcyhkcVUOQULABSV1342-96-51 10:35:00 Test Item Value Reference Range Interpretation Comments Monocytes # (test code 0.7 See_Comment [Aut omated message] The = Monocytes #) system which generated this result tra nsmitted reference range : <=0.8. The reference r leo was not used to int erpret this result as normal/abnormal . [facility] HospitalObtlnlaIAJVSFLJQI1436-88-48 10:35:00 Test Item Value Reference Range Interpretation Comments Segs (test code = Segs) 51.3 45.0-75.0 [facility] HospitalOrtafkgWNEKHTGHQP1731-39-24 10:35:00 Test Item Value Reference Range Interpretation Comments Lymphocytes (test code = Lymphocytes) 31.6 20.0-40.0 [facility] HospitalEbknryaIQHMLWGDTE6593-18-61 10:35:00 Test Item Value Reference Range Interpretation Comments Monocytes (test code = Monocytes) 14.1 2.0-12.0 [facility] HospitalYhymwgmXRNRFCHCLV4041-26-48 10:35:00 Test Item Value Reference Range Interpretation Comments Eosinophils (test code = 2.6 See_Comment [A utomated message] The Eosinophils) system which ge nerated this result tra nsmitted reference range : <=4.0. The reference r leo was not used to int erpret this result as normal/abnormal . [facility] HospitalMtlqsqxFRNQEEJQRD2582-21-66 10:35:00 Test Item Value Reference Range Interpretation Comments Basophils (test code = 0.4 See_Comment [Aut omated message] The Basophils) system which ge nerated this result tra nsmitted reference range : <=1.0. The reference r leo was not used to int erpret this result as normal/abnormal . [facility] HospitalPamzltzHGEYKHMTXI9627-89-53 10:35:00 Test Item Value Reference Range Interpretation Comments PB Smear Path Peripheral blood smear shows (test code = PB hypochromic normocytic Smear Path) anemia with anisopoikilocytsosis, no increase in schistocytes, slight polychromasia, a few estella cells, moderate thrombocytopenia. Impression: (1) no evidence of microangiopathic hemolysis, (2) RBC morphology is suggestive of anemia of chronic disease or iron deficiency anemia, and renal disease. CPT: 84207 [facility] HospitalAvmckpuOOFPJMSBII1261-81-11 10:35:00 Test Item Value Reference Range Interpretation Comments Hct (test code = Hct) 29.3 36.0-48.0 [facility] HospitalIuneyfpFJLGNYFJDQ9338-89-78 10:35:00 Test Item Value Reference Range Interpretation Comments Hgb (test code = Hgb) 9.2 12.0-16.0 [facility] HospitalRzudymuQPXMVANFOZ4889-03-45 10:35:00 Test Item Value Reference Range Interpretation Comments RBC (test code = RBC) 3.54 4.20-5.40 [facility] HospitalJgwdeinGIMWBPNPXM9651-34-58 10:35:00 Test Item Value Reference Range Interpretation Comments WBC (test code = WBC) 5.3 3.7-10.4 [facility] HospitalSfvxqioTXTXNXWAKK1712-70-79 10:35:00 Test Item Value Reference Range Interpretation Comments Platelet (test code = Platelet) 87 133-450 [facility] HospitalWucqofpKBTYSRWRYP7273-76-01 10:35:00 Test Item Value Reference Range Interpretation Comments MCHC (test code = MCHC) 31.4 32.0-36.0 [facility] HospitalWpgtkwyKRBNXDZYAK3063-14-89 10:35:00 Test Item Value Reference Range Interpretation Comments RDW (test code = RDW) 17.9 11.5-14.5 [facility] HospitalVumyfccBCAIJCBYGG8543-55-08 10:35:00 Test Item Value Reference Range Interpretation Comments MPV (test code = MPV) 10.9 7.4-10.4 [facility] HospitalBavldsrJVEPSKRXXA4877-51-22 10:35:00 Test Item Value Reference Range Interpretation Comments MCH (test code = MCH) 26.0 pg 27.0-31.0 [facility] HospitalJdcylrtGVASAAKRSK5020-70-70 10:35:00 Test Item Value Reference Range Interpretation Comments MCV (test code = MCV) 82.8 80.0-98.0 [facility]WhyedkqDTDRWVOBRH7571-38-09 10:35:00 Test Item Value Reference Range Interpretation Comments HIV. (test code = Negative *NA*(07/28/16 HIV.) 4:35 AM) [facility] HospitalShlqzenYWRCVDSHND5415-87-34 10:35:00 Test Item Value Reference Range Interpretation Comments Lymphocytes # (test code = Lymphocytes 1.7 1.0-5.5 #) [facility] HospitalYqbomvyPUCNLFSINE6819-53-38 10:35:00 Test Item Value Reference Range Interpretation Comments Segs-Bands # (test code = Segs-Bands #) 2.7 1.5-8.1 [facility] HospitalTwceejfCPLCLWYRBL2026-70-03 10:35:00 Test Item Value Reference Range Interpretation Comments Eosinophils # (test code 0.1 See_Comment [A utomated message] The = Eosinophils #) system whic h generated this result tra nsmitted reference range : <=0.5. The reference r leo was not used to int erpret this result as normal/abnormal . [facility] HospitalBqzrihuIQMASSLROO4696-84-00 10:35:00 Test Item Value Reference Range Interpretation Comments Monocytes # (test code 0.7 See_Comment [Aut omated message] The = Monocytes #) system which generated this result tra nsmitted reference range : <=0.8. The reference r leo was not used to int erpret this result as normal/abnormal . [facility] HospitalWejomqmQCBZIFRVBC4164-81-53 10:35:00 Test Item Value Reference Range Interpretation Comments Segs (test code = Segs) 51.3 45.0-75.0 [facility] HospitalDmrjnefAHNXLDCVUN5842-85-91 10:35:00 Test Item Value Reference Range Interpretation Comments Lymphocytes (test code = Lymphocytes) 31.6 20.0-40.0 [facility] HospitalGfdvyjdUTNRDXTKOC0916-97-13 10:35:00 Test Item Value Reference Range Interpretation Comments Monocytes (test code = Monocytes) 14.1 2.0-12.0 [facility] HospitalFtujgqoGIJKZPIULU7976-94-87 10:35:00 Test Item Value Reference Range Interpretation Comments Eosinophils (test code = 2.6 See_Comment [A utomated message] The Eosinophils) system which ge nerated this result tra nsmitted reference range : <=4.0. The reference r leo was not used to int erpret this result as normal/abnormal . [facility] HospitalPojdxpbZECFFZNIIX7697-48-42 10:35:00 Test Item Value Reference Range Interpretation Comments Basophils (test code = 0.4 See_Comment [Aut omated message] The Basophils) system which ge nerated this result tra nsmitted reference range : <=1.0. The reference r leo was not used to int erpret this result as normal/abnormal . [facility] HospitalKwqrjfrFJPHOGJGJJ0753-28-87 10:35:00 Test Item Value Reference Range Interpretation Comments PB Smear Path Peripheral blood smear shows (test code = PB hypochromic normocytic Smear Path) anemia with anisopoikilocytsosis, no increase in schistocytes, slight polychromasia, a few estella cells, moderate thrombocytopenia. Impression: (1) no evidence of microangiopathic hemolysis, (2) RBC morphology is suggestive of anemia of chronic disease or iron deficiency anemia, and renal disease. CPT: 73310 [facility] HospitalKgwwsdzHERAQQQOQP1216-67-93 10:35:00 Test Item Value Reference Range Interpretation Comments Hct (test code = Hct) 29.3 36.0-48.0 [facility] HospitalLyutgzkDVFZSAYXGT6352-22-64 10:35:00 Test Item Value Reference Range Interpretation Comments Hgb (test code = Hgb) 9.2 12.0-16.0 [facility] HospitalGztbzhdQPITMWNPXK4667-20-60 10:35:00 Test Item Value Reference Range Interpretation Comments RBC (test code = RBC) 3.54 4.20-5.40 [facility] HospitalQqyngucUPMLLICMDX7207-28-11 10:35:00 Test Item Value Reference Range Interpretation Comments WBC (test code = WBC) 5.3 3.7-10.4 [facility] HospitalZbmdvgvBSRYLYWJQW0466-60-87 10:35:00 Test Item Value Reference Range Interpretation Comments Platelet (test code = Platelet) 87 133-450 [facility] HospitalVvxwfsdZSPPYVITVL6299-32-46 10:35:00 Test Item Value Reference Range Interpretation Comments MCHC (test code = MCHC) 31.4 32.0-36.0 [facility] HospitalCgswtvvOCGYJYARSF7964-62-44 10:35:00 Test Item Value Reference Range Interpretation Comments RDW (test code = RDW) 17.9 11.5-14.5 [facility] HospitalDjxdmgfBAOKRBTBTY3475-06-39 10:35:00 Test Item Value Reference Range Interpretation Comments MPV (test code = MPV) 10.9 7.4-10.4 [facility] HospitalPkcdhlwFCDJMUSQMS0689-95-58 10:35:00 Test Item Value Reference Range Interpretation Comments MCH (test code = MCH) 26.0 pg 27.0-31.0 [facility] HospitalJzyluupWGQCSEYKPU3417-19-47 10:35:00 Test Item Value Reference Range Interpretation Comments MCV (test code = MCV) 82.8 80.0-98.0 [facility] ResourcesMemqvrtYEOASEGTLK0796-82-52 10:35:00 Test Item Value Reference Range Interpretation Comments HIV. (test code = Negative *NA*(07/28/16 HIV.) 4:35 AM) [facility] HospitalUolmjwdGKNYTCDQGG4141-60-91 10:35:00 Test Item Value Reference Range Interpretation Comments Lymphocytes # (test code = Lymphocytes 1.7 1.0-5.5 #) [facility] HospitalQuqlzxtZHBYFHUKHM5766-92-85 10:35:00 Test Item Value Reference Range Interpretation Comments Segs-Bands # (test code = Segs-Bands #) 2.7 1.5-8.1 [facility] HospitalGpuaoxmYQODHFOUNB8187-32-08 10:35:00 Test Item Value Reference Range Interpretation Comments Eosinophils # (test code 0.1 See_Comment [A utomated message] The = Eosinophils #) system [facility] h generated this result tra nsmitted reference range : <=0.5. The reference r leo was not used to int erpret this result as normal/abnormal . [facility] HospitalTrlxfsbJAKHORCCMZ3155-73-01 10:35:00 Test Item Value Reference Range Interpretation Comments Monocytes # (test code 0.7 See_Comment [Aut omated message] The = Monocytes #) system which generated this result tra nsmitted reference range : <=0.8. The reference r leo was not used to int erpret this result as normal/abnormal . [facility] HospitalXceuzjjJFPHLVZUUV4541-59-65 10:35:00 Test Item Value Reference Range Interpretation Comments Segs (test code = Segs) 51.3 45.0-75.0 [facility] HospitalLuvjwrsACCNJAMBBD0489-59-17 10:35:00 Test Item Value Reference Range Interpretation Comments Lymphocytes (test code = Lymphocytes) 31.6 20.0-40.0 [facility] HospitalEbhamyiPZGWXWNWBH8973-43-34 10:35:00 Test Item Value Reference Range Interpretation Comments Monocytes (test code = Monocytes) 14.1 2.0-12.0 [facility] HospitalFmoiytxFGQVDABEMM8447-53-15 10:35:00 Test Item Value Reference Range Interpretation Comments Eosinophils (test code = 2.6 See_Comment [A utomated message] The Eosinophils) system which ge nerated this result tra nsmitted reference range : <=4.0. The reference r leo was not used to int erpret this result as normal/abnormal . [facility] HospitalAqihyadMBMKCWZYQD0831-41-70 10:35:00 Test Item Value Reference Range Interpretation Comments Basophils (test code = 0.4 See_Comment [Aut omated message] The Basophils) system which ge nerated this result tra nsmitted reference range : <=1.0. The reference r leo was not used to int erpret this result as normal/abnormal . [facility] HospitalSxwfcowTACKRVKWZY5700-49-41 10:35:00 Test Item Value Reference Range Interpretation Comments PB Smear Path Peripheral blood smear shows (test code = PB hypochromic normocytic Smear Path) anemia with anisopoikilocytsosis, no increase in schistocytes, slight polychromasia, a few estella cells, moderate thrombocytopenia. Impression: (1) no evidence of microangiopathic hemolysis, (2) RBC morphology is suggestive of anemia of chronic disease or iron deficiency anemia, and renal disease. CPT: 77062 [facility] HospitalGtwmjhzRAEETEZEIL6277-75-32 10:35:00 Test Item Value Reference Range Interpretation Comments Hct (test code = Hct) 29.3 36.0-48.0 [facility] HospitalSsxlszaTJNTNCWCDI1735-61-56 10:35:00 Test Item Value Reference Range Interpretation Comments Hgb (test code = Hgb) 9.2 12.0-16.0 [facility] HospitalHpkxawkVSSTNBXOML6859-31-89 10:35:00 Test Item Value Reference Range Interpretation Comments RBC (test code = RBC) 3.54 4.20-5.40 [facility] HospitalVriryprMFVMNMOTVQ4201-20-02 10:35:00 Test Item Value Reference Range Interpretation Comments WBC (test code = WBC) 5.3 3.7-10.4 [facility] HospitalLpovtooDYJNKREBSH8635-08-36 10:35:00 Test Item Value Reference Range Interpretation Comments Platelet (test code = Platelet) 87 133-450 [facility] HospitalUjeabqeSGGZBFHHYY3997-37-88 10:35:00 Test Item Value Reference Range Interpretation Comments MCHC (test code = MCHC) 31.4 32.0-36.0 [facility] HospitalIbxtpnbXEQOGCOIHM3541-30-48 10:35:00 Test Item Value Reference Range Interpretation Comments RDW (test code = RDW) 17.9 11.5-14.5 [facility] ResourcesTwwksnqEDKEYWIYHM5077-28-27 10:35:00 Test Item Value Reference Range Interpretation Comments MPV (test code = MPV) 10.9 7.4-10.4 [facility] ResourcesZbgvumkUBDCEPJEWP0250-20-89 10:35:00 Test Item Value Reference Range Interpretation Comments MCH (test code = MCH) 26.0 pg 27.0-31.0 [facility] ResourcesMlohvtlFCKJLSVRFP2204-65-32 10:35:00 Test Item Value Reference Range Interpretation Comments MCV (test code = MCV) 82.8 80.0-98.0 [facility] ResourcesEeqomvjDFDWWSIXDZ9443-35-87 10:35:00 Test Item Value Reference Range Interpretation Comments HIV. (test code = Negative *NA*(07/28/16 HIV.) 4:35 AM) [facility] ResourcesCARDIAC JFNINTA1275-98-69 10:22:00 Test Item Value Reference Range Interpretation Comments Total CK (test code = Total CK) 190 12-191 [facility] ResourcesMachine Perception Technologies GDRFK3354-13-06 10:22:00 Test Item Value Reference Range Interpretation Comments Calcium Lvl (test code = Calcium Lvl) 7.8 8.5-10.5 [facility] ONBXI8802-06-22 10:22:00 Test Item Value Reference Range Interpretation Comments CO2 (test code = CO2) 21 24-32 [facility] [id number] 10:22:00 Test Item Value Reference Range Interpretation Comments Sodium Lvl (test code = Sodium Lvl) 140 135-145 [facility] PKGNC7420-74-61 10:22:00 Test Item Value Reference Range Interpretation Comments Potassium Lvl (test code = Potassium 3.8 3.5-5.1 Lvl) [facility] [id number] 10:22:00 Test Item Value Reference Range Interpretation Comments Chloride Lvl (test code = Chloride Lvl) 106 95-109 [facility] BNGCQ1777-19-82 10:22:00 Test Item Value Reference Range Interpretation Comments Bili Total (test code = Bili Total) 0.4 0.2-1.3 [facility]2017-02-06 10:22:00 Test Item Value Reference Range Interpretation Comments Alk Phos (test code = Alk Phos) 74 39-136 [facility]2017-02-06 10:22:00 Test Item Value Reference Range Interpretation Comments eGFR (test code = eGFR) 19 [facility]2017-02-06 10:22:00 Test Item Value Reference Range Interpretation Comments Total Protein (test code = Total 5.2 6.4-8.4 Protein) [facility]2017-02-06 10:22:00 Test Item Value Reference Range Interpretation Comments ALT (test code = ALT) 822 See_Comment [Auto mated message] The system which ge nerated this result transmit rohit reference range : <=65. The reference range was not used to interpr et this result as reji l/abnormal. [facility]2017-02-06 10:22:00 Test Item Value Reference Range Interpretation Comments AST (test code = AST) 205 See_Comment [Auto mated message] The system which ge nerated this result transmit rohit reference range : <=37. The reference range was not used to interpr et this result as reji l/abnormal. [facility]2017-02-06 10:22:00 Test Item Value Reference Range Interpretation Comments Albumin Lvl (test code = Albumin Lvl) 1.8 3.5-5.0 [facility]2017-02-06 10:22:00 Test Item Value Reference Range Interpretation Comments BUN (test code = BUN) 54 7-22 [facility]2017-02-06 10:22:00 Test Item Value Reference Range Interpretation Comments Glucose Lvl (test code = Glucose Lvl) 143 70-99 [facility]2017-02-06 10:22:00 Test Item Value Reference Range Interpretation Comments Creatinine Lvl (test code = Creatinine 3.11 0.50-1.40 Lvl) [facility]2017-02-06 10:22:00 Test Item Value Reference Range Interpretation Comments B/C Ratio (test code = B/C Ratio) 17 6-25 [facility]2017-02-06 10:22:00 Test Item Value Reference Range Interpretation Comments AGAP (test code = AGAP) 16.8 10.0-20.0 [facility]2017-02-06 10:22:00 Test Item Value Reference Range Interpretation Comments Globulin (test code = Globulin) 3.4 2.7-4.2 [facility]2017-02-06 10:22:00 Test Item Value Reference Range Interpretation Comments A/G Ratio (test code = A/G Ratio) 0.5 0.7-1.6 [facility]2017-02-06 10:22:00 Test Item Value Reference Range Interpretation Comments Magnesium Lvl (test code = Magnesium 2.0 1.8-2.4 Lvl) [facility]2017-02-06 10:22:00 Test Item Value Reference Range Interpretation Comments Phosphorus (test code = Phosphorus) 3.7 2.5-4.5 [facility] HospitalIswqmjqHDWLJFWNCA6084-18-59 10:22:00 Test Item Value Reference Range Interpretation Comments RDW (test code = RDW) 17.7 11.5-14.5 [facility] HospitalEhgcrouBNPLYJHVAJ9732-95-52 10:22:00 Test Item Value Reference Range Interpretation Comments MCHC (test code = MCHC) 32.9 32.0-36.0 [facility] HospitalYzzzclmPRPIPRYRNU4382-49-99 10:22:00 Test Item Value Reference Range Interpretation Comments Hct (test code = Hct) 25.4 36.0-48.0 [facility] HospitalWvzqewbHRDBEVITXI5941-70-23 10:22:00 Test Item Value Reference Range Interpretation Comments MCH (test code = MCH) 26.4 pg 27.0-31.0 [facility] HospitalCdawwjhHUVRTUFSVY9277-64-23 10:22:00 Test Item Value Reference Range Interpretation Comments MCV (test code = MCV) 80.3 80.0-98.0 [facility] HospitalGhaqqdeZFUVPEFSOP1388-68-22 10:22:00 Test Item Value Reference Range Interpretation Comments MPV (test code = MPV) 11.4 7.4-10.4 [facility] HospitalTixlgmtOJYBVXJQAN8985-33-02 10:22:00 Test Item Value Reference Range Interpretation Comments Platelet (test code = Platelet) 74 133-450 [facility] HospitalFhnuwpvLQAWBEBVDG6063-47-45 10:22:00 Test Item Value Reference Range Interpretation Comments RBC (test code = RBC) 3.16 4.20-5.40 [facility] HospitalGeuwtuxNESKUJOEZN8293-06-48 10:22:00 Test Item Value Reference Range Interpretation Comments WBC (test code = WBC) 5.3 3.7-10.4 [facility] HospitalLxibpxaAHSOOYOIPK4234-11-00 10:22:00 Test Item Value Reference Range Interpretation Comments Hgb (test code = Hgb) 8.4 12.0-16.0 [facility] HospitalGrxfsryCOFKFMFGBE9311-60-11 10:22:00 Test Item Value Reference Range Interpretation Comments Monocytes (test code = Monocytes) 14.5 2.0-12.0 [facility] HospitalAzekbbpHCZZTAFZGI5017-07-76 10:22:00 Test Item Value Reference Range Interpretation Comments Lymphocytes (test code = Lymphocytes) 29.8 20.0-40.0 [facility] HospitalBpizxsiAFPYLZGTUT3745-74-67 10:22:00 Test Item Value Reference Range Interpretation Comments Eosinophils # (test code 0.1 See_Comment [A utomated message] The = Eosinophils #) system wh h generated this result tra nsmitted reference range : <=0.5. The reference r leo was not used to int erpret this result as normal/abnormal . [facility] HospitalDuzpbrgXCABPMKAUE7609-81-69 10:22:00 Test Item Value Reference Range Interpretation Comments Monocytes # (test code 0.8 See_Comment [Aut omated message] The = Monocytes #) system which generated this result tra nsmitted reference range : <=0.8. The reference r leo was not used to int erpret this result as normal/abnormal . [facility] HospitalPjsjwklODTDYHHDAI3016-09-85 10:22:00 Test Item Value Reference Range Interpretation Comments Segs-Bands # (test code = Segs-Bands #) 2.9 1.5-8.1 [facility] HospitalBtusymaMWWCHAXQIV2275-47-36 10:22:00 Test Item Value Reference Range Interpretation Comments Lymphocytes # (test code = Lymphocytes 1.6 1.0-5.5 #) [facility] HospitalIbrahcoSTBRCIQOTY4503-06-58 10:22:00 Test Item Value Reference Range Interpretation Comments Basophils (test code = 0.4 See_Comment [Aut omated message] The Basophils) system which ge nerated this result tra nsmitted reference range : <=1.0. The reference r leo was not used to int erpret this result as normal/abnormal . [facility] HospitalYtecapeUYZYNLEPPZ9785-59-02 10:22:00 Test Item Value Reference Range Interpretation Comments Eosinophils (test code = 1.2 See_Comment [A utomated message] The Eosinophils) system which ge nerated this result tra nsmitted reference range : <=4.0. The reference r leo was not used to int erpret this result as normal/abnormal . [facility] ResourcesFnkbowwEVQJFFBNUV8557-64-81 10:22:00 Test Item Value Reference Range Interpretation Comments Segs (test code = Segs) 54.1 45.0-75.0 [facility] ResourcesSPECIAL TBRBFQUMN1407-13-11 10:22:00 Test Item Value Reference Range Interpretation Comments Hgb A1C (test code = Hgb A1C) 8.9 [facility] ResourcesCARDIAC GZNLHEO1135-86-26 10:22:00 Test Item Value Reference Range Interpretation Comments Total CK (test code = Total CK) 190 12-191 [facility] QEJXN8305-60-73 10:22:00 Test Item Value Reference Range Interpretation Comments Calcium Lvl (test code = Calcium Lvl) 7.8 8.5-10.5 [facility]2017-02-06 10:22:00 Test Item Value Reference Range Interpretation Comments CO2 (test code = CO2) 21 24-32 [facility]2017-02-06 10:22:00 Test Item Value Reference Range Interpretation Comments Sodium Lvl (test code = Sodium Lvl) 140 135-145 [facility] DallasqLearningFRYE REGION[facility] MEDICAL CENTERRLIUX8845-80-17 10:22:00 Test Item Value Reference Range Interpretation Comments Potassium Lvl (test code = Potassium 3.8 3.5-5.1 Lvl) [facility]2017-02-06 10:22:00 Test Item Value Reference Range Interpretation Comments Chloride Lvl (test code = Chloride Lvl) 106 95-109 [facility]2017-02-06 10:22:00 Test Item Value Reference Range Interpretation Comments Bili Total (test code = Bili Total) 0.4 0.2-1.3 [facility] [id number] 10:22:00 Test Item Value Reference Range Interpretation Comments Alk Phos (test code = Alk Phos) 74 39-136 [facility]2017-02-06 10:22:00 Test Item Value Reference Range Interpretation Comments eGFR (test code = eGFR) 19 [facility]2017-02-06 10:22:00 Test Item Value Reference Range Interpretation Comments Total Protein (test code = Total 5.2 6.4-8.4 Protein) [facility]2017-02-06 10:22:00 Test Item Value Reference Range Interpretation Comments ALT (test code = ALT) 822 See_Comment [Auto mated message] The system which ge nerated this result transmit rohit reference range : <=65. The reference range was not used to interpr et this result as reji l/abnormal. [facility]2017-02-06 10:22:00 Test Item Value Reference Range Interpretation Comments AST (test code = AST) 205 See_Comment [Auto mated message] The system which ge nerated this result transmit rohit reference range : <=37. The reference range was not used to interpr et this result as reji l/abnormal. [facility]2017-02-06 10:22:00 Test Item Value Reference Range Interpretation Comments Albumin Lvl (test code = Albumin Lvl) 1.8 3.5-5.0 [facility]2017-02-06 10:22:00 Test Item Value Reference Range Interpretation Comments BUN (test code = BUN) 54 7-22 [facility]2017-02-06 10:22:00 Test Item Value Reference Range Interpretation Comments Glucose Lvl (test code = Glucose Lvl) 143 70-99 [facility]2017-02-06 10:22:00 Test Item Value Reference Range Interpretation Comments Creatinine Lvl (test code = Creatinine 3.11 0.50-1.40 Lvl) [facility]2017-02-06 10:22:00 Test Item Value Reference Range Interpretation Comments B/C Ratio (test code = B/C Ratio) 17 6-25 [facility]2017-02-06 10:22:00 Test Item Value Reference Range Interpretation Comments AGAP (test code = AGAP) 16.8 10.0-20.0 [facility]2017-02-06 10:22:00 Test Item Value Reference Range Interpretation Comments Globulin (test code = Globulin) 3.4 2.7-4.2 [facility]2017-02-06 10:22:00 Test Item Value Reference Range Interpretation Comments A/G Ratio (test code = A/G Ratio) 0.5 0.7-1.6 [facility]2017-02-06 10:22:00 Test Item Value Reference Range Interpretation Comments Magnesium Lvl (test code = Magnesium 2.0 1.8-2.4 Lvl) [facility]2017-02-06 10:22:00 Test Item Value Reference Range Interpretation Comments Phosphorus (test code = Phosphorus) 3.7 2.5-4.5 [facility] HospitalAkdrezyDBIRKRKUUA5820-55-95 10:22:00 Test Item Value Reference Range Interpretation Comments RDW (test code = RDW) 17.7 11.5-14.5 [facility] HospitalGxsznecQXCHPGRSKF4498-95-16 10:22:00 Test Item Value Reference Range Interpretation Comments MCHC (test code = MCHC) 32.9 32.0-36.0 [facility] HospitalKoqsmxqBGVPEGWJEJ4838-47-76 10:22:00 Test Item Value Reference Range Interpretation Comments Hct (test code = Hct) 25.4 36.0-48.0 [facility] HospitalZaoydjeYKOMPFSINJ6460-67-63 10:22:00 Test Item Value Reference Range Interpretation Comments MCH (test code = MCH) 26.4 pg 27.0-31.0 [facility] HospitalGgwyyvpFCLSGWPKBW7160-04-85 10:22:00 Test Item Value Reference Range Interpretation Comments MCV (test code = MCV) 80.3 80.0-98.0 [facility] HospitalEsyeantASMCUDPQQF6739-49-74 10:22:00 Test Item Value Reference Range Interpretation Comments MPV (test code = MPV) 11.4 7.4-10.4 [facility] HospitalZdqojnrGVVTDTYYJO2186-56-35 10:22:00 Test Item Value Reference Range Interpretation Comments Platelet (test code = Platelet) 74 133-450 [facility] HospitalFxmlnvpFELPBEYGWW6603-67-57 10:22:00 Test Item Value Reference Range Interpretation Comments RBC (test code = RBC) 3.16 4.20-5.40 [facility] HospitalSlpdoumESXJCBCLNA0206-14-54 10:22:00 Test Item Value Reference Range Interpretation Comments WBC (test code = WBC) 5.3 3.7-10.4 [facility] HospitalSqiedmjCTGCLNDGWZ9115-98-18 10:22:00 Test Item Value Reference Range Interpretation Comments Hgb (test code = Hgb) 8.4 12.0-16.0 [facility] HospitalCyofxwcUUJGDODNHB5252-97-97 10:22:00 Test Item Value Reference Range Interpretation Comments Monocytes (test code = Monocytes) 14.5 2.0-12.0 [facility] HospitalSelccmkQPNSHZVFUE3047-84-56 10:22:00 Test Item Value Reference Range Interpretation Comments Lymphocytes (test code = Lymphocytes) 29.8 20.0-40.0 [facility] HospitalIrlzkkfRTBKNFFILM1903-27-14 10:22:00 Test Item Value Reference Range Interpretation Comments Eosinophils # (test code 0.1 See_Comment [A utomated message] The = Eosinophils #) system wh h generated this result tra nsmitted reference range : <=0.5. The reference r leo was not used to int erpret this result as normal/abnormal . [facility] HospitalQoajnxxUHMKYDUTKN7467-09-22 10:22:00 Test Item Value Reference Range Interpretation Comments Monocytes # (test code 0.8 See_Comment [Aut omated message] The = Monocytes #) system which generated this result tra nsmitted reference range : <=0.8. The reference r leo was not used to int erpret this result as normal/abnormal . [facility] HospitalVoekluoIIFQQBTDZQ8692-85-78 10:22:00 Test Item Value Reference Range Interpretation Comments Segs-Bands # (test code = Segs-Bands #) 2.9 1.5-8.1 [facility] HospitalUppyoabJTHNFJHZJW7508-86-69 10:22:00 Test Item Value Reference Range Interpretation Comments Lymphocytes # (test code = Lymphocytes 1.6 1.0-5.5 #) [facility] HospitalOluusfcWSSYZAODQN7550-54-28 10:22:00 Test Item Value Reference Range Interpretation Comments Basophils (test code = 0.4 See_Comment [Aut omated message] The Basophils) system which ge nerated this result tra nsmitted reference range : <=1.0. The reference r leo was not used to int erpret this result as normal/abnormal . [facility] HospitalItopfirEXQMNNZTFY4191-98-83 10:22:00 Test Item Value Reference Range Interpretation Comments Eosinophils (test code = 1.2 See_Comment [A utomated message] The Eosinophils) system which ge nerated this result tra nsmitted reference range : <=4.0. The reference r leo was not used to int erpret this result as normal/abnormal . [facility] HospitalMaqwyvzPXIHBIEVIR7952-33-47 10:22:00 Test Item Value Reference Range Interpretation Comments Segs (test code = Segs) 54.1 45.0-75.0 [facility] ResourcesSPECIAL BXMIZJIMD0378-73-09 10:22:00 Test Item Value Reference Range Interpretation Comments Hgb A1C (test code = Hgb A1C) 8.9 [facility] ResourcesCARDIAC RAUHUPW7943-38-21 10:22:00 Test Item Value Reference Range Interpretation Comments Total CK (test code = Total CK) 190 12-191 [facility]2017-02-06 10:22:00 Test Item Value Reference Range Interpretation Comments Calcium Lvl (test code = Calcium Lvl) 7.8 8.5-10.5 [facility]2017-02-06 10:22:00 Test Item Value Reference Range Interpretation Comments CO2 (test code = CO2) 21 24-32 [facility]2017-02-06 10:22:00 Test Item Value Reference Range Interpretation Comments Sodium Lvl (test code = Sodium Lvl) 140 135-145 [facility]2017-02-06 10:22:00 Test Item Value Reference Range Interpretation Comments Potassium Lvl (test code = Potassium 3.8 3.5-5.1 Lvl) [facility]2017-02-06 10:22:00 Test Item Value Reference Range Interpretation Comments Chloride Lvl (test code = Chloride Lvl) 106 95-109 [facility]2017-02-06 10:22:00 Test Item Value Reference Range Interpretation Comments Bili Total (test code = Bili Total) 0.4 0.2-1.3 [facility]2017-02-06 10:22:00 Test Item Value Reference Range Interpretation Comments Alk Phos (test code = Alk Phos) 74 39-136 [facility]2017-02-06 10:22:00 Test Item Value Reference Range Interpretation Comments eGFR (test code = eGFR) 19 [facility]2017-02-06 10:22:00 Test Item Value Reference Range Interpretation Comments Total Protein (test code = Total 5.2 6.4-8.4 Protein) [facility]2017-02-06 10:22:00 Test Item Value Reference Range Interpretation Comments ALT (test code = ALT) 822 See_Comment [Auto mated message] The system which ge nerated this result transmit rohit reference range : <=65. The reference range was not used to interpr et this result as reji l/abnormal. [facility]2017-02-06 10:22:00 Test Item Value Reference Range Interpretation Comments AST (test code = AST) 205 See_Comment [Auto mated message] The system which ge nerated this result transmit rohit reference range : <=37. The reference range was not used to interpr et this result as reji l/abnormal. [facility]2017-02-06 10:22:00 Test Item Value Reference Range Interpretation Comments Albumin Lvl (test code = Albumin Lvl) 1.8 3.5-5.0 [facility]2017-02-06 10:22:00 Test Item Value Reference Range Interpretation Comments BUN (test code = BUN) 54 7-22 [facility]2017-02-06 10:22:00 Test Item Value Reference Range Interpretation Comments Glucose Lvl (test code = Glucose Lvl) 143 70-99 [facility]2017-02-06 10:22:00 Test Item Value Reference Range Interpretation Comments Creatinine Lvl (test code = Creatinine 3.11 0.50-1.40 Lvl) [facility]2017-02-06 10:22:00 Test Item Value Reference Range Interpretation Comments B/C Ratio (test code = B/C Ratio) 17 6-25 [facility]2017-02-06 10:22:00 Test Item Value Reference Range Interpretation Comments AGAP (test code = AGAP) 16.8 10.0-20.0 [facility]2017-02-06 10:22:00 Test Item Value Reference Range Interpretation Comments Globulin (test code = Globulin) 3.4 2.7-4.2 [facility]2017-02-06 10:22:00 Test Item Value Reference Range Interpretation Comments A/G Ratio (test code = A/G Ratio) 0.5 0.7-1.6 [facility]2017-02-06 10:22:00 Test Item Value Reference Range Interpretation Comments Magnesium Lvl (test code = Magnesium 2.0 1.8-2.4 Lvl) [facility]2017-02-06 10:22:00 Test Item Value Reference Range Interpretation Comments Phosphorus (test code = Phosphorus) 3.7 2.5-4.5 [facility]TzdpzpbZZXZFJDDHF3776-52-54 10:22:00 Test Item Value Reference Range Interpretation Comments RDW (test code = RDW) 17.7 11.5-14.5 [facility] HospitalEcakrniNZOLMEKHVQ7775-25-65 10:22:00 Test Item Value Reference Range Interpretation Comments MCHC (test code = MCHC) 32.9 32.0-36.0 [facility] HospitalSiqcgciJCRMBWBALJ5202-42-27 10:22:00 Test Item Value Reference Range Interpretation Comments Hct (test code = Hct) 25.4 36.0-48.0 [facility] HospitalDbqylpzEKXAQYOJPJ2236-79-62 10:22:00 Test Item Value Reference Range Interpretation Comments MCH (test code = MCH) 26.4 pg 27.0-31.0 [facility] HospitalRrvsuphLSLUDTVQSA1785-12-67 10:22:00 Test Item Value Reference Range Interpretation Comments MCV (test code = MCV) 80.3 80.0-98.0 [facility] HospitalJoesmyhJISPIJPPIK5862-74-96 10:22:00 Test Item Value Reference Range Interpretation Comments MPV (test code = MPV) 11.4 7.4-10.4 [facility] HospitalSyupbiwWMCYKPRKVU1109-20-97 10:22:00 Test Item Value Reference Range Interpretation Comments Platelet (test code = Platelet) 74 133-450 [facility] HospitalGazuodkOOSGOUGTAE2794-44-90 10:22:00 Test Item Value Reference Range Interpretation Comments RBC (test code = RBC) 3.16 4.20-5.40 [facility] HospitalWsuursoAWAKTBSLKZ4240-83-61 10:22:00 Test Item Value Reference Range Interpretation Comments WBC (test code = WBC) 5.3 3.7-10.4 [facility] HospitalEkoesokARVGAZYRKB8201-02-74 10:22:00 Test Item Value Reference Range Interpretation Comments Hgb (test code = Hgb) 8.4 12.0-16.0 [facility] HospitalSzvpqgvIZCXSGIYJD8848-06-16 10:22:00 Test Item Value Reference Range Interpretation Comments Monocytes (test code = Monocytes) 14.5 2.0-12.0 [facility] HospitalVjutqmrKAYHNJSGCI8266-80-91 10:22:00 Test Item Value Reference Range Interpretation Comments Lymphocytes (test code = Lymphocytes) 29.8 20.0-40.0 [facility] HospitalZgvezlqANRABAQLPO9251-64-07 10:22:00 Test Item Value Reference Range Interpretation Comments Eosinophils # (test code 0.1 See_Comment [A utomated message] The = Eosinophils #) system whic h generated this result tra nsmitted reference range : <=0.5. The reference r leo was not used to int erpret this result as normal/abnormal . [facility] HospitalWygrlssONILCTAWQN3150-57-35 10:22:00 Test Item Value Reference Range Interpretation Comments Monocytes # (test code 0.8 See_Comment [Aut omated message] The = Monocytes #) system which generated this result tra nsmitted reference range : <=0.8. The reference r leo was not used to int erpret this result as normal/abnormal . [facility] HospitalFbilmmnSJGSZUAZCW2627-60-87 10:22:00 Test Item Value Reference Range Interpretation Comments Segs-Bands # (test code = Segs-Bands #) 2.9 1.5-8.1 [facility] HospitalVsoygcgIYPHEBLJEF1695-30-02 10:22:00 Test Item Value Reference Range Interpretation Comments Lymphocytes # (test code = Lymphocytes 1.6 1.0-5.5 #) [facility] HospitalWwtbxmyXYQWPAFDDP6662-19-83 10:22:00 Test Item Value Reference Range Interpretation Comments Basophils (test code = 0.4 See_Comment [Aut omated message] The Basophils) system which ge nerated this result tra nsmitted reference range : <=1.0. The reference r leo was not used to int erpret this result as normal/abnormal . [facility] HospitalKooefpcRJTIDACLKL6022-53-60 10:22:00 Test Item Value Reference Range Interpretation Comments Eosinophils (test code = 1.2 See_Comment [A utomated message] The Eosinophils) system which ge nerated this result tra nsmitted reference range : <=4.0. The reference r leo was not used to int erpret this result as normal/abnormal . [facility]zaqyqyNNHOBYELAR1542-53-90 10:22:00 Test Item Value Reference Range Interpretation Comments Segs (test code = Segs) 54.1 45.0-75.0 [facility] ECSWOGDSS9102-70-70 10:22:00 Test Item Value Reference Range Interpretation Comments Hgb A1C (test code = Hgb A1C) 8.9 [facility] Resources[facility]ARD[facility] [id number] 10:22:00 Test Item Value Reference Range Interpretation Comments Total CK (test code = Total CK) 190 12-191 [facility]2017-02-06 10:22:00 Test Item Value Reference Range Interpretation Comments Calcium Lvl (test code = Calcium Lvl) 7.8 8.5-10.5 [facility]2017-02-06 10:22:00 Test Item Value Reference Range Interpretation Comments CO2 (test code = CO2) 21 24-32 [facility]2017-02-06 10:22:00 Test Item Value Reference Range Interpretation Comments Sodium Lvl (test code = Sodium Lvl) 140 135-145 [facility]2017-02-06 10:22:00 Test Item Value Reference Range Interpretation Comments Potassium Lvl (test code = Potassium 3.8 3.5-5.1 Lvl) [facility]2017-02-06 10:22:00 Test Item Value Reference Range Interpretation Comments Chloride Lvl (test code = Chloride Lvl) 106 95-109 [facility]2017-02-06 10:22:00 Test Item Value Reference Range Interpretation Comments Bili Total (test code = Bili Total) 0.4 0.2-1.3 [facility]2017-02-06 10:22:00 Test Item Value Reference Range Interpretation Comments Alk Phos (test code = Alk Phos) 74 39-136 [facility]2017-02-06 10:22:00 Test Item Value Reference Range Interpretation Comments eGFR (test code = eGFR) 19 [facility]2017-02-06 10:22:00 Test Item Value Reference Range Interpretation Comments Total Protein (test code = Total 5.2 6.4-8.4 Protein) [facility]2017-02-06 10:22:00 Test Item Value Reference Range Interpretation Comments ALT (test code = ALT) 822 See_Comment [Auto mated message] The system which ge nerated this result transmit rohit reference range : <=65. The reference range was not used to interpr et this result as reji l/abnormal. [facility]2017-02-06 10:22:00 Test Item Value Reference Range Interpretation Comments AST (test code = AST) 205 See_Comment [Auto mated message] The system which ge nerated this result transmit rohit reference range : <=37. The reference range was not used to interpr et this result as reji l/abnormal. [facility]2017-02-06 10:22:00 Test Item Value Reference Range Interpretation Comments Albumin Lvl (test code = Albumin Lvl) 1.8 3.5-5.0 [facility]2017-02-06 10:22:00 Test Item Value Reference Range Interpretation Comments BUN (test code = BUN) 54 7-22 [facility]2017-02-06 10:22:00 Test Item Value Reference Range Interpretation Comments Glucose Lvl (test code = Glucose Lvl) 143 70-99 [facility]2017-02-06 10:22:00 Test Item Value Reference Range Interpretation Comments Creatinine Lvl (test code = Creatinine 3.11 0.50-1.40 Lvl) [facility]2017-02-06 10:22:00 Test Item Value Reference Range Interpretation Comments B/C Ratio (test code = B/C Ratio) 17 6-25 [facility]2017-02-06 10:22:00 Test Item Value Reference Range Interpretation Comments AGAP (test code = AGAP) 16.8 10.0-20.0 [facility]2017-02-06 10:22:00 Test Item Value Reference Range Interpretation Comments Globulin (test code = Globulin) 3.4 2.7-4.2 [facility]2017-02-06 10:22:00 Test Item Value Reference Range Interpretation Comments A/G Ratio (test code = A/G Ratio) 0.5 0.7-1.6 [facility]2017-02-06 10:22:00 Test Item Value Reference Range Interpretation Comments Magnesium Lvl (test code = Magnesium 2.0 1.8-2.4 Lvl) [facility]2017-02-06 10:22:00 Test Item Value Reference Range Interpretation Comments Phosphorus (test code = Phosphorus) 3.7 2.5-4.5 [facility] HospitalIvlxuatLEVRXVTUQZ0099-36-57 10:22:00 Test Item Value Reference Range Interpretation Comments RDW (test code = RDW) 17.7 11.5-14.5 [facility] HospitalPhpnjytDNVQIJYNSS5661-08-10 10:22:00 Test Item Value Reference Range Interpretation Comments MCHC (test code = MCHC) 32.9 32.0-36.0 [facility] HospitalUfzszkwEMTMPDFMPC8409-65-94 10:22:00 Test Item Value Reference Range Interpretation Comments Hct (test code = Hct) 25.4 36.0-48.0 [facility] HospitalEumwtipWTVJKDVHYH3640-50-70 10:22:00 Test Item Value Reference Range Interpretation Comments MCH (test code = MCH) 26.4 pg 27.0-31.0 [facility] HospitalTtooyqlVUZFKQXTLJ8138-84-93 10:22:00 Test Item Value Reference Range Interpretation Comments MCV (test code = MCV) 80.3 80.0-98.0 [facility] HospitalRabfbegFVLZSWHCSG1306-00-90 10:22:00 Test Item Value Reference Range Interpretation Comments MPV (test code = MPV) 11.4 7.4-10.4 [facility] HospitalWwqdtlhRPJBHTOZVT2107-41-38 10:22:00 Test Item Value Reference Range Interpretation Comments Platelet (test code = Platelet) 74 133-450 [facility] HospitalMoyhjncVRBTFDBJTF1372-68-63 10:22:00 Test Item Value Reference Range Interpretation Comments RBC (test code = RBC) 3.16 4.20-5.40 [facility] HospitalKkplakmDAVNTHHREG3402-21-86 10:22:00 Test Item Value Reference Range Interpretation Comments WBC (test code = WBC) 5.3 3.7-10.4 [facility] HospitalKapsqnqTUFZBQXJEQ7883-20-32 10:22:00 Test Item Value Reference Range Interpretation Comments Hgb (test code = Hgb) 8.4 12.0-16.0 [facility] HospitalOvpfkuoMYFXKNCZNY5778-57-93 10:22:00 Test Item Value Reference Range Interpretation Comments Monocytes (test code = Monocytes) 14.5 2.0-12.0 [facility] HospitalPergpxtKEJOPLRCKD9778-55-30 10:22:00 Test Item Value Reference Range Interpretation Comments Lymphocytes (test code = Lymphocytes) 29.8 20.0-40.0 [facility] HospitalIavhqlaCQYRGHEYVD2408-51-25 10:22:00 Test Item Value Reference Range Interpretation Comments Eosinophils # (test code 0.1 See_Comment [A utomated message] The = Eosinophils #) system ic h generated this result tra nsmitted reference range : <=0.5. The reference r leo was not used to int erpret this result as normal/abnormal . [facility]DxupqmeQAGAEKKRZI9157-71-85 10:22:00 Test Item Value Reference Range Interpretation Comments Monocytes # (test code 0.8 See_Comment [Aut omated message] The = Monocytes #) system which generated this result tra nsmitted reference range : <=0.8. The reference r leo was not used to int erpret this result as normal/abnormal . [facility]awIjtinlfJTXIHPRMRE6477-18-51 10:22:00 Test Item Value Reference Range Interpretation Comments Segs-Bands # (test code = Segs-Bands #) 2.9 1.5-8.1 [facility]UimmqanMNCMCKVGIC5820-49-98 10:22:00 Test Item Value Reference Range Interpretation Comments Lymphocytes # (test code = Lymphocytes 1.6 1.0-5.5 #) [facility] HospitalGlkkjzcMEWVKLJNPK1847-21-26 10:22:00 Test Item Value Reference Range Interpretation Comments Basophils (test code = 0.4 See_Comment [Aut omated message] The Basophils) system which ge nerated this result tra nsmitted reference range : <=1.0. The reference r leo was not used to int erpret this result as normal/abnormal . [facility] HospitalPthutcuVHAKMJGYNR9468-64-98 10:22:00 Test Item Value Reference Range Interpretation Comments Eosinophils (test code = 1.2 See_Comment [A utomated message] The Eosinophils) system which ge nerated this result tra nsmitted reference range : <=4.0. The reference r leo was not used to int erpret this result as normal/abnormal . [facility] ResourcesUvflbypZDBLZDFNSI4018-50-60 10:22:00 Test Item Value Reference Range Interpretation Comments Segs (test code = Segs) 54.1 45.0-75.0 [facility] ResourcesSPECIAL QVMIRCQID6670-58-35 10:22:00 Test Item Value Reference Range Interpretation Comments Hgb A1C (test code = Hgb A1C) 8.9 [facility] ZBOKNBK1893-08-83 10:22:00 Test Item Value Reference Range Interpretation Comments Total CK (test code = Total CK) 190 12-191 [facility] ResourcesCHEM [id number] 10:22:00 Test Item Value Reference Range Interpretation Comments Calcium Lvl (test code = Calcium Lvl) 7.8 8.5-10.5 [facility]2017-02-06 10:22:00 Test Item Value Reference Range Interpretation Comments CO2 (test code = CO2) 21 24-32 [facility]2017-02-06 10:22:00 Test Item Value Reference Range Interpretation Comments Sodium Lvl (test code = Sodium Lvl) 140 135-145 [facility]2017-02-06 10:22:00 Test Item Value Reference Range Interpretation Comments Potassium Lvl (test code = Potassium 3.8 3.5-5.1 Lvl) [facility]2017-02-06 10:22:00 Test Item Value Reference Range Interpretation Comments Chloride Lvl (test code = Chloride Lvl) 106 95-109 [facility]2017-02-06 10:22:00 Test Item Value Reference Range Interpretation Comments Bili Total (test code = Bili Total) 0.4 0.2-1.3 [facility]2017-02-06 10:22:00 Test Item Value Reference Range Interpretation Comments Alk Phos (test code = Alk Phos) 74 39-136 [facility]2017-02-06 10:22:00 Test Item Value Reference Range Interpretation Comments eGFR (test code = eGFR) 19 [facility]2017-02-06 10:22:00 Test Item Value Reference Range Interpretation Comments Total Protein (test code = Total 5.2 6.4-8.4 Protein) [facility]2017-02-06 10:22:00 Test Item Value Reference Range Interpretation Comments ALT (test code = ALT) 822 See_Comment [Auto mated message] The system which ge nerated this result transmit rohit reference range : <=65. The reference range was not used to interpr et this result as reji l/abnormal. [facility]2017-02-06 10:22:00 Test Item Value Reference Range Interpretation Comments AST (test code = AST) 205 See_Comment [Auto mated message] The system which ge nerated this result transmit rohit reference range : <=37. The reference range was not used to interpr et this result as reji l/abnormal. [facility]2017-02-06 10:22:00 Test Item Value Reference Range Interpretation Comments Albumin Lvl (test code = Albumin Lvl) 1.8 3.5-5.0 [facility]2017-02-06 10:22:00 Test Item Value Reference Range Interpretation Comments BUN (test code = BUN) 54 7-22 [facility]2017-02-06 10:22:00 Test Item Value Reference Range Interpretation Comments Glucose Lvl (test code = Glucose Lvl) 143 70-99 [facility]2017-02-06 10:22:00 Test Item Value Reference Range Interpretation Comments Creatinine Lvl (test code = Creatinine 3.11 0.50-1.40 Lvl) [facility]2017-02-06 10:22:00 Test Item Value Reference Range Interpretation Comments B/C Ratio (test code = B/C Ratio) 17 6-25 [facility]2017-02-06 10:22:00 Test Item Value Reference Range Interpretation Comments AGAP (test code = AGAP) 16.8 10.0-20.0 [facility]2017-02-06 10:22:00 Test Item Value Reference Range Interpretation Comments Globulin (test code = Globulin) 3.4 2.7-4.2 [facility]2017-02-06 10:22:00 Test Item Value Reference Range Interpretation Comments A/G Ratio (test code = A/G Ratio) 0.5 0.7-1.6 [facility]2017-02-06 10:22:00 Test Item Value Reference Range Interpretation Comments Magnesium Lvl (test code = Magnesium 2.0 1.8-2.4 Lvl) [facility]2017-02-06 10:22:00 Test Item Value Reference Range Interpretation Comments Phosphorus (test code = Phosphorus) 3.7 2.5-4.5 [facility] HospitalIglyxneTHRJOVNFRU8690-38-37 10:22:00 Test Item Value Reference Range Interpretation Comments RDW (test code = RDW) 17.7 11.5-14.5 [facility] HospitalBaypmbzRLAIMGBSLC8691-74-22 10:22:00 Test Item Value Reference Range Interpretation Comments MCHC (test code = MCHC) 32.9 32.0-36.0 [facility] HospitalUpfqawrUFASXSYJIK9040-11-83 10:22:00 Test Item Value Reference Range Interpretation Comments Hct (test code = Hct) 25.4 36.0-48.0 [facility] HospitalRjapagiLDTUJHAENO1954-71-09 10:22:00 Test Item Value Reference Range Interpretation Comments MCH (test code = MCH) 26.4 pg 27.0-31.0 [facility] HospitalWobtpgaHYCCUCLTMI0399-98-97 10:22:00 Test Item Value Reference Range Interpretation Comments MCV (test code = MCV) 80.3 80.0-98.0 [facility] HospitalRefnnsbYOUITQBXPV3649-67-37 10:22:00 Test Item Value Reference Range Interpretation Comments MPV (test code = MPV) 11.4 7.4-10.4 [facility] HospitalTslgnlrPEZIAJUXUI6728-87-63 10:22:00 Test Item Value Reference Range Interpretation Comments Platelet (test code = Platelet) 74 133-450 [facility] HospitalIitoixvKLHLJGHNLM5522-11-93 10:22:00 Test Item Value Reference Range Interpretation Comments RBC (test code = RBC) 3.16 4.20-5.40 [facility] HospitalFyanaguWUBKKBHZBW8027-90-15 10:22:00 Test Item Value Reference Range Interpretation Comments WBC (test code = WBC) 5.3 3.7-10.4 [facility] HospitalCtqlyhuFWKOEYIWEX6875-31-64 10:22:00 Test Item Value Reference Range Interpretation Comments Hgb (test code = Hgb) 8.4 12.0-16.0 [facility] HospitalPmdjutuGKKEOUBGID8959-52-03 10:22:00 Test Item Value Reference Range Interpretation Comments Monocytes (test code = Monocytes) 14.5 2.0-12.0 [facility] HospitalJixlywdTGJFYBHSAC7304-04-41 10:22:00 Test Item Value Reference Range Interpretation Comments Lymphocytes (test code = Lymphocytes) 29.8 20.0-40.0 [facility] HospitalTtetgpyNSUCQFCNZM5398-67-12 10:22:00 Test Item Value Reference Range Interpretation Comments Eosinophils # (test code 0.1 See_Comment [A utomated message] The = Eosinophils #) system whic h generated this result tra nsmitted reference range : <=0.5. The reference r leo was not used to int erpret this result as normal/abnormal . [facility] HospitalTgqgcldHTPNNKCRVL2099-85-81 10:22:00 Test Item Value Reference Range Interpretation Comments Monocytes # (test code 0.8 See_Comment [Aut omated message] The = Monocytes #) system which generated this result tra nsmitted reference range : <=0.8. The reference r leo was not used to int erpret this result as normal/abnormal . [facility] ResourcesWnbysljFHVLWAWGHW2558-88-70 10:22:00 Test Item Value Reference Range Interpretation Comments Segs-Bands # (test code = Segs-Bands #) 2.9 1.5-8.1 [facility]PuzwpetZZXWWNBGLF4852-47-77 10:22:00 Test Item Value Reference Range Interpretation Comments Lymphocytes # (test code = Lymphocytes 1.6 1.0-5.5 #) [facility]awBtsitsfXQOERZWLKQ8227-90-48 10:22:00 Test Item Value Reference Range Interpretation Comments Basophils (test code = 0.4 See_Comment [Aut omated message] The Basophils) system which ge nerated this result tra nsmitted reference range : <=1.0. The reference r leo was not used to int erpret this result as normal/abnormal . [facility] HospitalYdfzwnqTWPBFXDSKN4492-69-57 10:22:00 Test Item Value Reference Range Interpretation Comments Eosinophils (test code = 1.2 See_Comment [A utomated message] The Eosinophils) system which ge nerated this result tra nsmitted reference range : <=4.0. The reference r leo was not used to int erpret this result as normal/abnormal . [facility]awRaoliloOZDFRGIAIH6196-00-76 10:22:00 Test Item Value Reference Range Interpretation Comments Segs (test code = Segs) 54.1 45.0-75.0 [facility] ResourcesSPECIAL NGEBIQDXU7300-94-58 10:22:00 Test Item Value Reference Range Interpretation Comments Hgb A1C (test code = Hgb A1C) 8.9 [facility]CARD[facility]AC HZRWQLI8770-26-30 17:40:00 Test Item Value Reference Range Interpretation Comments Total CK (test code = Total CK) 344 12-191 [facility] DallasUuvdnedJSYJJZTGEF0262-97-51 17:40:00 Test Item Value Reference Range Interpretation Comments IVETET (test code = IVETTE) Positive *ABN*(07/26/16 11:40 AM) [facility] DallasDlfcoxjAYRBBQEEVY7343-66-43 17:40:00 Test Item Value Reference Range Interpretation Comments BRASS CLEANER Ab (test code = BRASS CLEANER Ab) no gt [facility] DallasLqfvhiiBRSBJIGRCK1086-81-93 17:40:00 Test Item Value Reference Range Interpretation Comments Sm Ab (test code = Sm Ab) no gt [facility] DallasApsqxvpZLDNUMVXYV0306-68-02 17:40:00 Test Item Value Reference Range Interpretation Comments IVETTE Interp (test code Pattern appears = IVETTE Interp) Nucleolar. [facility] LkntdduAJYYJIVPEE9688-43-38 17:40:00 Test Item Value Reference Range Interpretation Comments SS-B (La) Ab (test code = SS-B (La) Ab) no [facility]mkpnrxVGBUANJWIW3042-95-52 17:40:00 Test Item Value Reference Range Interpretation Comments SS-A (Ro) Ab (test code = SS-A (Ro) Ab) no [facility] EbmlavvSPZFFLGVKO6578-26-46 17:40:00 Test Item Value Reference Range Interpretation Comments DNA Ab (DS) (test Negative (07/26/16 11:40 code = DNA Ab (DS)) AM) [facility] DallasWjgfvxeSGHHOFWBVZ3552-10-63 17:40:00 Test Item Value Reference Range Interpretation Comments IVETTE Titer (test code = 1:40 *ABN*(07/26/16 IVETTE Titer) 11:40 AM) [facility]annURINE [id number] 17:40:00 Test Item Value Reference Range Interpretation Comments U Sodium (test code = U Sodium) 21 [facility]annCARDIAC WYJFVPS9097-43-71 17:40:00 Test Item Value Reference Range Interpretation Comments Total CK (test code = Total CK) 344 12-191 [facility] DallasUlyyujtCGPHZBOORS6349-54-05 17:40:00 Test Item Value Reference Range Interpretation Comments IVETTE (test code = IVETTE) Positive *ABN*(07/26/16 11:40 AM) [facility] DallasRgzrcoxQJUQCQPGDD0752-41-41 17:40:00 Test Item Value Reference Range Interpretation Comments BRASS CLEANER Ab (test code = BRASS CLEANER Ab) no [facility] AglrvtiZAGJMMQKQN2625-29-79 17:40:00 Test Item Value Reference Range Interpretation Comments Sm Ab (test code = Sm Ab) no [facility] SsjgnzhVDEUSEOOLW2085-50-98 17:40:00 Test Item Value Reference Range Interpretation Comments IVETTE Interp (test code Pattern appears = IVETTE Interp) Nucleolar. [facility] DallasCpvcksyUFQGRGRMPB1149-48-97 17:40:00 Test Item Value Reference Range Interpretation Comments SS-B (La) Ab (test code = SS-B (La) Ab) no [facility] XwstpdmPODVMZTUJJ9971-86-62 17:40:00 Test Item Value Reference Range Interpretation Comments SS-A (Ro) Ab (test code = SS-A (Ro) Ab) no [facility] KxdnhlhZLWNZLXUVB9715-39-68 17:40:00 Test Item Value Reference Range Interpretation Comments DNA Ab (DS) (test Negative (07/26/16 11:40 code = DNA Ab (DS)) AM) [facility] DallasFdxfmlqUHPZSTLCBD7022-51-60 17:40:00 Test Item Value Reference Range Interpretation Comments IVETTE Titer (test code = 1:40 *ABN*(07/26/16 IVETTE Titer) 11:40 AM) [facility]annURINE [id number] 17:40:00 Test Item Value Reference Range Interpretation Comments U Sodium (test code = U Sodium) 21 [facility] DallasannCARDIAC POPVQMJ3702-83-75 17:40:00 Test Item Value Reference Range Interpretation Comments Total CK (test code = Total CK) 344 12-191 [facility] YpbkyluRRKFHZRJVX2027-79-05 17:40:00 Test Item Value Reference Range Interpretation Comments IVETTE (test code = IVETTE) Positive *ABN*(07/26/16 11:40 AM) [facility] DallasEpmzjmiJTMLJPSARK2749-04-93 17:40:00 Test Item Value Reference Range Interpretation Comments BRASS CLEANER Ab (test code = BRASS CLEANER Ab) no gt [facility] EnfbbhkBTWHWJNHOF8299-70-38 17:40:00 Test Item Value Reference Range Interpretation Comments Sm Ab (test code = Sm Ab) no gt [facility] DallasFxedkudCGMCXCXLMI6757-65-59 17:40:00 Test Item Value Reference Range Interpretation Comments IVETTE Interp (test code Pattern appears = IVETTE Interp) Nucleolar. [facility] UuekibnGIFUNWJTMI8205-79-14 17:40:00 Test Item Value Reference Range Interpretation Comments SS-B (La) Ab (test code = SS-B (La) Ab) no gt [facility] FjrckpbZBHCLYZEGP9926-88-65 17:40:00 Test Item Value Reference Range Interpretation Comments SS-A (Ro) Ab (test code = SS-A (Ro) Ab) no [facility] UzvtcptSXOFEEIODN3108-44-64 17:40:00 Test Item Value Reference Range Interpretation Comments DNA Ab (DS) (test Negative (07/26/16 11:40 code = DNA Ab (DS)) AM) [facility] DallasRfollilRWJMEXXIUZ7235-70-44 17:40:00 Test Item Value Reference Range Interpretation Comments IVETTE Titer (test code = 1:40 *ABN*(07/26/16 IVETTE Titer) 11:40 AM) [facility] [id number] 17:40:00 Test Item Value Reference Range Interpretation Comments U Sodium (test code = U Sodium) 21 [facility] XJJSNZK1631-95-90 17:40:00 Test Item Value Reference Range Interpretation Comments Total CK (test code = Total CK) 344 12-191 [facility] ResourcesEdricviWJCVNKPMUB7947-08-22 17:40:00 Test Item Value Reference Range Interpretation Comments IVETTE (test code = IVETTE) Positive *ABN*(07/26/16 11:40 AM) [facility] DallasEijsxkeXQDXQLGDSY5100-50-00 17:40:00 Test Item Value Reference Range Interpretation Comments BRASS CLEANER Ab (test code = BRASS CLEANER Ab) no gt [facility] DallasFvrkhkfBUPBQAOEIP8157-46-99 17:40:00 Test Item Value Reference Range Interpretation Comments Sm Ab (test code = Sm Ab) no gt [facility] DallasEvhnwawNRZVVXXZZF8125-37-72 17:40:00 Test Item Value Reference Range Interpretation Comments IVETTE Interp (test code Pattern appears = IVETTE Interp) Nucleolar. [facility] DallasAgfgsrrGJTCROTVRG7120-14-38 17:40:00 Test Item Value Reference Range Interpretation Comments SS-B (La) Ab (test code = SS-B (La) Ab) no gt [facility] DallasRhepxavIJZZIAXWBA4958-15-03 17:40:00 Test Item Value Reference Range Interpretation Comments SS-A (Ro) Ab (test code = SS-A (Ro) Ab) no gt [facility] DallasNowaygnNHZLYEVEOJ5977-22-29 17:40:00 Test Item Value Reference Range Interpretation Comments DNA Ab (DS) (test Negative (07/26/16 11:40 code = DNA Ab (DS)) AM) [facility] DallasMkuenwtDWWXVRRNXI1185-78-18 17:40:00 Test Item Value Reference Range Interpretation Comments IVETTE Titer (test code = 1:40 *ABN*(07/26/16 IVETTE Titer) 11:40 AM) [facility] [id number] 17:40:00 Test Item Value Reference Range Interpretation Comments U Sodium (test code = U Sodium) 21 [facility] [id number] 17:40:00 Test Item Value Reference Range Interpretation Comments Total CK (test code = Total CK) 344 12-191 [facility] ResourcesZxvpjcbFQRMEEFSYL7750-53-02 17:40:00 Test Item Value Reference Range Interpretation Comments IVETTE (test code = IVETTE) Positive *ABN*(07/26/16 11:40 AM) [facility] ResourcesYzwdagvEXAXZWKNIG2198-73-25 17:40:00 Test Item Value Reference Range Interpretation Comments BRASS CLEANER Ab (test code = BRASS CLEANER Ab) no gt [facility] DallasPnfyfgeHXZOZYOWOZ4506-29-92 17:40:00 Test Item Value Reference Range Interpretation Comments Sm Ab (test code = Sm Ab) no gt [facility] DallasIpvutdhNAZLAZFTSX8074-12-22 17:40:00 Test Item Value Reference Range Interpretation Comments IVETTE Interp (test code Pattern appears = IVETTE Interp) Nucleolar. [facility] ResourcesBihqfsyPLIWGXXEET3464-49-91 17:40:00 Test Item Value Reference Range Interpretation Comments SS-B (La) Ab (test code = SS-B (La) Ab) no [facility]ianovrACTSTQNLUJ7504-60-89 17:40:00 Test Item Value Reference Range Interpretation Comments SS-A (Ro) Ab (test code = SS-A (Ro) Ab) no [facility]HyttumsKXAECLOZLV7261-98-12 17:40:00 Test Item Value Reference Range Interpretation Comments DNA Ab (DS) (test Negative (07/26/16 11:40 code = DNA Ab (DS)) AM) [facility] ResourcesVtpkoznLWNULQYZYF9797-96-13 17:40:00 Test Item Value Reference Range Interpretation Comments IVETTE Titer (test code = 1:40 *ABN*(07/26/16 IVETTE Titer) 11:40 AM) [facility] [id number] 17:40:00 Test Item Value Reference Range Interpretation Comments U Sodium (test code = U Sodium) 21 [facility] ResourcesMpbkeiaTNYMTCHGPQ5868-45-87 14:00:00 Test Item Value Reference Range Interpretation Comments INR (test code = INR) 1.11 0.85-1.17 [facility] ResourcesGjzfnnsJACCZWFHQH4695-70-99 14:00:00 Test Item Value Reference Range Interpretation Comments PT (test code = PT) 14.5 s 12.0-14.7 [facility] ResourcesAywpmmlSGOGCRKUQV3226-09-47 14:00:00 Test Item Value Reference Range Interpretation Comments Hep A IgM (test code Negative *NA*(07/26/16 = Hep A IgM) 8:00 AM) [facility]GcqxqkoMACOMYIHRN1906-79-22 14:00:00 Test Item Value Reference Range Interpretation Comments Hep B Core IgM (test Negative *NA*(07/26/16 code = Hep B Core 8:00 AM) IgM) [facility] CenterSfgusnoCYQQCOHRHZ8091-21-88 14:00:00 Test Item Value Reference Range Interpretation Comments Hep C Ab (test code = Negative *NA*(07/26/16 Hep C Ab) 8:00 AM) [facility] CenterGmmddkdHENJUPIJYK4599-36-30 14:00:00 Test Item Value Reference Range Interpretation Comments Hep Bs Ag (test code Negative *NA*(07/26/16 = Hep Bs Ag) 8:00 AM) [facility]DdtoszjLUVTYFFGOU9843-43-82 14:00:00 Test Item Value Reference Range Interpretation Comments INR (test code = INR) 1.11 0.85-1.17 [facility] HospitalDkhdueyYNYTUQGQRC6636-23-93 14:00:00 Test Item Value Reference Range Interpretation Comments PT (test code = PT) 14.5 s 12.0-14.7 [facility] CenterCepfjhtMTQKXPABGE9653-55-52 14:00:00 Test Item Value Reference Range Interpretation Comments Hep A IgM (test code Negative *NA*(07/26/16 = Hep A IgM) 8:00 AM) [facility] CenterRduqiwdAEQNNRVXUX5020-08-72 14:00:00 Test Item Value Reference Range Interpretation Comments Hep B Core IgM (test Negative *NA*(07/26/16 code = Hep B Core 8:00 AM) IgM) [facility] CenterUwaajyrTYEOSKLTEG2671-51-94 14:00:00 Test Item Value Reference Range Interpretation Comments Hep C Ab (test code = Negative *NA*(07/26/16 Hep C Ab) 8:00 AM) [facility] CenterGovtvdgDOSOWRZPKC9124-37-13 14:00:00 Test Item Value Reference Range Interpretation Comments Hep Bs Ag (test code Negative *NA*(07/26/16 = Hep Bs Ag) 8:00 AM) [facility] HospitalMvonkcjGEYIVXMPMN1595-91-97 14:00:00 Test Item Value Reference Range Interpretation Comments INR (test code = INR) 1.11 0.85-1.17 [facility] HospitalPdzrxlrLEPEJWGSLE0774-63-75 14:00:00 Test Item Value Reference Range Interpretation Comments PT (test code = PT) 14.5 s 12.0-14.7 [facility] CenterMeoexjwYVSDACAHSN0182-51-68 14:00:00 Test Item Value Reference Range Interpretation Comments Hep A IgM (test code Negative *NA*(07/26/16 = Hep A IgM) 8:00 AM) [facility] CenterPdslqxbTYJAIUOUBR0347-72-42 14:00:00 Test Item Value Reference Range Interpretation Comments Hep B Core IgM (test Negative *NA*(07/26/16 code = Hep B Core 8:00 AM) IgM) [facility] CenterUgygcbyRLDCSYAMVY1928-79-90 14:00:00 Test Item Value Reference Range Interpretation Comments Hep C Ab (test code = Negative *NA*(07/26/16 Hep C Ab) 8:00 AM) [facility] CenterCgsrfjfSBQCDGITJX8058-51-58 14:00:00 Test Item Value Reference Range Interpretation Comments Hep Bs Ag (test code Negative *NA*(07/26/16 = Hep Bs Ag) 8:00 AM) [facility] HospitalVwaqywlPRACLQEZPU1117-86-46 14:00:00 Test Item Value Reference Range Interpretation Comments INR (test code = INR) 1.11 0.85-1.17 [facility] HospitalOykfyyzUANWJEPGFE8622-79-90 14:00:00 Test Item Value Reference Range Interpretation Comments PT (test code = PT) 14.5 s 12.0-14.7 [facility] CenterWyrflzmAKQZELBTHM8570-33-10 14:00:00 Test Item Value Reference Range Interpretation Comments Hep A IgM (test code Negative *NA*(07/26/16 = Hep A IgM) 8:00 AM) [facility] CenterObnxyxfBZRBFZLAIC7218-98-57 14:00:00 Test Item Value Reference Range Interpretation Comments Hep B Core IgM (test Negative *NA*(07/26/16 code = Hep B Core 8:00 AM) IgM) [facility] CenterKjjysmaMFTQDCOPWC3682-69-82 14:00:00 Test Item Value Reference Range Interpretation Comments Hep C Ab (test code = Negative *NA*(07/26/16 Hep C Ab) 8:00 AM) [facility] CenterUibbmdwBXSVMVXUNT3321-93-93 14:00:00 Test Item Value Reference Range Interpretation Comments Hep Bs Ag (test code Negative *NA*(07/26/16 = Hep Bs Ag) 8:00 AM) [facility] ResourcesXfrllxsURWONLONRZ3555-26-16 14:00:00 Test Item Value Reference Range Interpretation Comments INR (test code = INR) 1.11 0.85-1.17 [facility] ResourcesVerexlaYLSODIIULX1028-74-40 14:00:00 Test Item Value Reference Range Interpretation Comments PT (test code = PT) 14.5 s 12.0-14.7 [facility] ResourcesYgkhereWSMYTDJOTO1536-50-61 14:00:00 Test Item Value Reference Range Interpretation Comments Hep A IgM (test code Negative *NA*(07/26/16 = Hep A IgM) 8:00 AM) [facility] ResourcesAdlrkxoGOGUOEGATF2132-77-24 14:00:00 Test Item Value Reference Range Interpretation Comments Hep B Core IgM (test Negative *NA*(07/26/16 code = Hep B Core 8:00 AM) IgM) [facility] ResourcesHmywtcmJJLQKLXUDQ0795-42-95 14:00:00 Test Item Value Reference Range Interpretation Comments Hep C Ab (test code = Negative *NA*(07/26/16 Hep C Ab) 8:00 AM) [facility] ResourcesGxxaavoVRXQQGFFOS4596-87-93 14:00:00 Test Item Value Reference Range Interpretation Comments Hep Bs Ag (test code Negative *NA*(07/26/16 = Hep Bs Ag) 8:00 AM) [facility]2017-02-05 10:42:00 Test Item Value Reference Range Interpretation Comments B/C Ratio (test code = B/C Ratio) 17 6-25 [facility]annCHEM DOLOC1182-05-44 10:42:00 Test Item Value Reference Range Interpretation Comments ALT (test code = ALT) 1232 See_Comment [Auto mated message] The system which ge nerated this result transmit rohit reference range : <=65. The reference range was not used to interpr et this result as reji l/abnormal. [facility] LUYHB0105-79-46 10:42:00 Test Item Value Reference Range Interpretation Comments A/G Ratio (test code = A/G Ratio) 0.5 0.7-1.6 [facility]2017-02-05 10:42:00 Test Item Value Reference Range Interpretation Comments Bili Total (test code = Bili Total) 0.3 0.2-1.3 [facility]2017-02-05 10:42:00 Test Item Value Reference Range Interpretation Comments Alk Phos (test code = Alk Phos) 79 39-136 [facility]2017-02-05 10:42:00 Test Item Value Reference Range Interpretation Comments AST (test code = AST) 586 See_Comment [Auto mated message] The system which ge nerated this result transmit rohit reference range : <=37. The reference range was not used to interpr et this result as reji l/abnormal. [facility]2017-02-05 10:42:00 Test Item Value Reference Range Interpretation Comments Total Protein (test code = Total 5.5 6.4-8.4 Protein) [facility]2017-02-05 10:42:00 Test Item Value Reference Range Interpretation Comments Globulin (test code = Globulin) 3.7 2.7-4.2 [facility]2017-02-05 10:42:00 Test Item Value Reference Range Interpretation Comments Albumin Lvl (test code = Albumin Lvl) 1.8 3.5-5.0 [facility]2017-02-05 10:42:00 Test Item Value Reference Range Interpretation Comments Magnesium Lvl (test code = Magnesium 2.1 1.8-2.4 Lvl) [facility] HospitalRzrlwpkPUUKHKMRAC3810-13-99 10:42:00 Test Item Value Reference Range Interpretation Comments Acanthocyte (test code = Acanthocyte) Slight [facility] HospitalCbykvgcQYCPZICJTE8929-04-64 10:42:00 Test Item Value Reference Range Interpretation Comments Rouleaux (test code = Present *ABN*(07/26/16 Rouleaux) 4:42 AM) [facility] HospitalAkhvbzjBCHEDXZOHL4369-89-18 10:42:00 Test Item Value Reference Range Interpretation Comments Anisocyte (test code = 1+ *ABN*(07/26/16 4:42 Anisocyte) AM) [facility] HospitalXqlxxfrDSRDHAGWAC0755-07-58 10:42:00 Test Item Value Reference Range Interpretation Comments Basophils # (test code 0.1 See_Comment [Aut omated message] The = Basophils #) system which generated this result tra nsmitted reference range : <=0.2. The reference r leo was not used to int erpret this result as normal/abnormal . [facility] HospitalBoztdsjOMKPYRWNGT2706-71-79 10:42:00 Test Item Value Reference Range Interpretation Comments Large Plt (test code Moderate *ABN*(07/26/16 = Large Plt) 4:42 AM) [facility] ResourcesMfotbpmGYXQTIKHEA5620-57-74 10:42:00 Test Item Value Reference Range Interpretation Comments C4 Complement (test code = C4 42 16-47 Complement) [facility]2017-02-05 10:42:00 Test Item Value Reference Range Interpretation Comments B/C Ratio (test code = B/C Ratio) 17 6-25 [facility]2017-02-05 10:42:00 Test Item Value Reference Range Interpretation Comments ALT (test code = ALT) 1232 See_Comment [Auto mated message] The system which ge nerated this result transmit rohit reference range : <=65. The reference range was not used to interpr et this result as reji l/abnormal. [facility]2017-02-05 10:42:00 Test Item Value Reference Range Interpretation Comments A/G Ratio (test code = A/G Ratio) 0.5 0.7-1.6 [facility]2017-02-05 10:42:00 Test Item Value Reference Range Interpretation Comments Bili Total (test code = Bili Total) 0.3 0.2-1.3 [facility]2017-02-05 10:42:00 Test Item Value Reference Range Interpretation Comments Alk Phos (test code = Alk Phos) 79 39-136 [facility]2017-02-05 10:42:00 Test Item Value Reference Range Interpretation Comments AST (test code = AST) 586 See_Comment [Auto mated message] The system which ge nerated this result transmit rohit reference range : <=37. The reference range was not used to interpr et this result as reji l/abnormal. [facility]2017-02-05 10:42:00 Test Item Value Reference Range Interpretation Comments Total Protein (test code = Total 5.5 6.4-8.4 Protein) [facility]2017-02-05 10:42:00 Test Item Value Reference Range Interpretation Comments Globulin (test code = Globulin) 3.7 2.7-4.2 [facility]2017-02-05 10:42:00 Test Item Value Reference Range Interpretation Comments Albumin Lvl (test code = Albumin Lvl) 1.8 3.5-5.0 [facility]2017-02-05 10:42:00 Test Item Value Reference Range Interpretation Comments Magnesium Lvl (test code = Magnesium 2.1 1.8-2.4 Lvl) [facility] HospitalAruwvwfWABZWPJSPB1241-86-10 10:42:00 Test Item Value Reference Range Interpretation Comments Acanthocyte (test code = Acanthocyte) [facility] HospitalIxykizgJCEYIFAJYQ8603-20-84 10:42:00 Test Item Value Reference Range Interpretation Comments Rouleaux (test code = Present *ABN*(07/26/16 Rouleaux) 4:42 AM) [facility] HospitalMemafnoCDZMNGETXX7825-13-74 10:42:00 Test Item Value Reference Range Interpretation Comments Anisocyte (test code = 1+ *ABN*(07/26/16 4:42 Anisocyte) AM) [facility] HospitalNcasdopTEZAHQZDAD1191-56-85 10:42:00 Test Item Value Reference Range Interpretation Comments Basophils # (test code 0.1 See_Comment [Aut omated message] The = Basophils #) system which generated this result tra nsmitted reference range : <=0.2. The reference r leo was not used to int erpret this result as normal/abnormal . [facility] HospitalFfyqnqrSKDTFDNSWV2565-60-33 10:42:00 Test Item Value Reference Range Interpretation Comments Large Plt (test code Moderate *ABN*(07/26/16 = Large Plt) 4:42 AM) [facility] ResourcesTjhfkycTQLSDYZVWK4253-60-64 10:42:00 Test Item Value Reference Range Interpretation Comments C4 Complement (test code = C4 42 16-47 Complement) [facility]2017-02-05 10:42:00 Test Item Value Reference Range Interpretation Comments B/C Ratio (test code = B/C Ratio) 17 6-25 [facility]2017-02-05 10:42:00 Test Item Value Reference Range Interpretation Comments ALT (test code = ALT) 1232 See_Comment [Auto mated message] The system which ge nerated this result transmit rohit reference range : <=65. The reference range was not used to interpr et this result as reji l/abnormal. [facility]2017-02-05 10:42:00 Test Item Value Reference Range Interpretation Comments A/G Ratio (test code = A/G Ratio) 0.5 0.7-1.6 [facility]2017-02-05 10:42:00 Test Item Value Reference Range Interpretation Comments Bili Total (test code = Bili Total) 0.3 0.2-1.3 [facility]2017-02-05 10:42:00 Test Item Value Reference Range Interpretation Comments Alk Phos (test code = Alk Phos) 79 39-136 [facility]2017-02-05 10:42:00 Test Item Value Reference Range Interpretation Comments AST (test code = AST) 586 See_Comment [Auto mated message] The system which ge nerated this result transmit rohit reference range : <=37. The reference range was not used to interpr et this result as reji l/abnormal. [facility]2017-02-05 10:42:00 Test Item Value Reference Range Interpretation Comments Total Protein (test code = Total 5.5 6.4-8.4 Protein) [facility]2017-02-05 10:42:00 Test Item Value Reference Range Interpretation Comments Globulin (test code = Globulin) 3.7 2.7-4.2 [facility]2017-02-05 10:42:00 Test Item Value Reference Range Interpretation Comments Albumin Lvl (test code = Albumin Lvl) 1.8 3.5-5.0 [facility]2017-02-05 10:42:00 Test Item Value Reference Range Interpretation Comments Magnesium Lvl (test code = Magnesium 2.1 1.8-2.4 Lvl) [facility] HospitalGzoknjjJTQHTRZSIZ3841-02-65 10:42:00 Test Item Value Reference Range Interpretation Comments Acanthocyte (test code = Acanthocyte) [facility] HospitalMlxjuhfSIUFMREHUC3135-92-88 10:42:00 Test Item Value Reference Range Interpretation Comments Rouleaux (test code = Present *ABN*(07/26/16 Rouleaux) 4:42 AM) [facility] HospitalVbjhecaPJAAVSPWMQ9964-71-97 10:42:00 Test Item Value Reference Range Interpretation Comments Anisocyte (test code = 1+ *ABN*(07/26/16 4:42 Anisocyte) AM) [facility] HospitalZosvzpxIPETIQLCUZ8395-23-42 10:42:00 Test Item Value Reference Range Interpretation Comments Basophils # (test code 0.1 See_Comment [Aut omated message] The = Basophils #) system which generated this result tra nsmitted reference range : <=0.2. The reference r leo was not used to int erpret this result as normal/abnormal . [facility]xgtsiqEUD[facility]YWUSZA1985-[facility]-52 10:42:00 Test Item Value Reference Range Interpretation Comments Large Plt (test code Moderate *ABN*(07/26/16 = Large Plt) 4:42 AM) [facility] ResourcesSvmvfwdARZIQEDPZI0902-99-82 10:42:00 Test Item Value Reference Range Interpretation Comments C4 Complement (test code = C4 42 16-47 Complement) [facility]2017-02-05 10:42:00 Test Item Value Reference Range Interpretation Comments B/C Ratio (test code = B/C Ratio) 17 6-25 [facility]2017-02-05 10:42:00 Test Item Value Reference Range Interpretation Comments ALT (test code = ALT) 1232 See_Comment [Auto mated message] The system which ge nerated this result transmit rohit reference range : <=65. The reference range was not used to interpr et this result as reji l/abnormal. [facility]2017-02-05 10:42:00 Test Item Value Reference Range Interpretation Comments A/G Ratio (test code = A/G Ratio) 0.5 0.7-1.6 [facility]2017-02-05 10:42:00 Test Item Value Reference Range Interpretation Comments Bili Total (test code = Bili Total) 0.3 0.2-1.3 [facility]2017-02-05 10:42:00 Test Item Value Reference Range Interpretation Comments Alk Phos (test code = Alk Phos) 79 39-136 [facility]2017-02-05 10:42:00 Test Item Value Reference Range Interpretation Comments AST (test code = AST) 586 See_Comment [Auto mated message] The system which ge nerated this result transmit rohit reference range : <=37. The reference range was not used to interpr et this result as reji l/abnormal. [facility]2017-02-05 10:42:00 Test Item Value Reference Range Interpretation Comments Total Protein (test code = Total 5.5 6.4-8.4 Protein) [facility]2017-02-05 10:42:00 Test Item Value Reference Range Interpretation Comments Globulin (test code = Globulin) 3.7 2.7-4.2 [facility]2017-02-05 10:42:00 Test Item Value Reference Range Interpretation Comments Albumin Lvl (test code = Albumin Lvl) 1.8 3.5-5.0 [facility]2017-02-05 10:42:00 Test Item Value Reference Range Interpretation Comments Magnesium Lvl (test code = Magnesium 2.1 1.8-2.4 Lvl) [facility] [id number] 10:42:00 Test Item Value Reference Range Interpretation Comments Acanthocyte (test code = Acanthocyte) Slight [facility] Hospit[id number] 10:42:00 Test Item Value Reference Range Interpretation Comments Rouleaux (test code = Present *ABN*(07/26/16 Rouleaux) 4:42 AM) [facility] H[id number] 10:42:00 Test Item Value Reference Range Interpretation Comments Anisocyte (test code = 1+ *ABN*(07/26/16 4:42 Anisocyte) AM) [facility] H[id number] 10:42:00 Test Item Value Reference Range Interpretation Comments Basophils # (test code 0.1 See_Comment [Aut omated message] The = Basophils #) system which generated this result tra nsmitted reference range : <=0.2. The reference r leo was not used to int erpret this result as normal/abnormal . [facility] HospitalFflmiphMTJHHDWKKZ4542-12-24 10:42:00 Test Item Value Reference Range Interpretation Comments Large Plt (test code Moderate *ABN*(07/26/16 = Large Plt) 4:42 AM) [facility] Re[id number] 10:42:00 Test Item Value Reference Range Interpretation Comments C4 Complement (test code = C4 42 16-47 Complement) [facility]2017-02-05 10:42:00 Test Item Value Reference Range Interpretation Comments B/C Ratio (test code = B/C Ratio) 17 6-25 [facility]2017-02-05 10:42:00 Test Item Value Reference Range Interpretation Comments ALT (test code = ALT) 1232 See_Comment [Auto mated message] The system which ge nerated this result transmit rohit reference range : <=65. The reference range was not used to interpr et this result as reji l/abnormal. [facility]2017-02-05 10:42:00 Test Item Value Reference Range Interpretation Comments A/G Ratio (test code = A/G Ratio) 0.5 0.7-1.6 [facility]2017-02-05 10:42:00 Test Item Value Reference Range Interpretation Comments Bili Total (test code = Bili Total) 0.3 0.2-1.3 [facility]2017-02-05 10:42:00 Test Item Value Reference Range Interpretation Comments Alk Phos (test code = Alk Phos) 79 39-136 [facility]2017-02-05 10:42:00 Test Item Value Reference Range Interpretation Comments AST (test code = AST) 586 See_Comment [Auto mated message] The system which ge nerated this result transmit rohit reference range : <=37. The reference range was not used to interpr et this result as reji l/abnormal. [facility]2017-02-05 10:42:00 Test Item Value Reference Range Interpretation Comments Total Protein (test code = Total 5.5 6.4-8.4 Protein) [facility]2017-02-05 10:42:00 Test Item Value Reference Range Interpretation Comments Globulin (test code = Globulin) 3.7 2.7-4.2 [facility]2017-02-05 10:42:00 Test Item Value Reference Range Interpretation Comments Albumin Lvl (test code = Albumin Lvl) 1.8 3.5-5.0 [facility]2017-02-05 10:42:00 Test Item Value Reference Range Interpretation Comments Magnesium Lvl (test code = Magnesium 2.1 1.8-2.4 Lvl) [facility] Hospit[id number] 10:42:00 Test Item Value Reference Range Interpretation Comments Acanthocyte (test code = Acanthocyte) Slight [facility] [id number] 10:42:00 Test Item Value Reference Range Interpretation Comments Rouleaux (test code = Present *ABN*(07/26/16 Rouleaux) 4:42 AM) [facility] ResourcesBmdqozvKIEDVFRGLM9614-08-75 10:42:00 Test Item Value Reference Range Interpretation Comments Anisocyte (test code = 1+ *ABN*(07/26/16 4:42 Anisocyte) AM) [facility] HospitalKxhahnrTNHOWWVHRL3229-25-74 10:42:00 Test Item Value Reference Range Interpretation Comments Basophils # (test code 0.1 See_Comment [Aut omated message] The = Basophils #) system which generated this result tra nsmitted reference range : <=0.2. The reference r leo was not used to int erpret this result as normal/abnormal . [facility] Re[id number] 10:42:00 Test Item Value Reference Range Interpretation Comments Large Plt (test code Moderate *ABN*(07/26/16 = Large Plt) 4:42 AM) [facility] ResourcesLytnlekMHJOBHTRMZ0758-36-39 10:42:00 Test Item Value Reference Range Interpretation Comments C4 Complement (test code = C4 42 16-47 Complement) [facility] AND [id number] 16:34:00 Test Item Value Reference Range Interpretation Comments UA Sq Epi (test code = UA Sq Epi) None Seen [facility] AND [id number] 16:34:00 Test Item Value Reference Range Interpretation Comments UA Waxy Cast (test code = UA Waxy Cast) 1 [facility] AND [id number] 16:34:00 Test Item Value Reference Range Interpretation Comments UA Hyal Cast (test 4 See_Comment [Automat ed message] The code = UA Hyal Cast) system which generated this result transmit rohit reference range : <=2. The reference range was not used to interpr et this result as reji l/abnormal. [facility] AND [id number] 16:34:00 Test Item Value Reference Range Interpretation Comments UA Bacteria (test code = UA Occasional /HPF Bacteria) [facility] AND [id number] 16:34:00 Test Item Value Reference Range Interpretation Comments UA Mucus (test code = UA Mucus) Few /LPF [facility] AND [id number] 16:34:00 Test Item Value Reference Range Interpretation Comments UA Amorph Destiny (test code = Occasional /HPF UA Amorph Destiny) [facility] AND [id number] 16:34:00 Test Item Value Reference Range Interpretation Comments UA Leuk Est (test Negative (07/25/16 10:34 code = UA Leuk Est) AM) [facility] AND [id number] 16:34:00 Test Item Value Reference Range Interpretation Comments UA Nitrite (test code Negative (07/25/16 10:34 = UA Nitrite) AM) [facility] AND [id number] 16:34:00 Test Item Value Reference Range Interpretation Comments UA RBC (test code = 2 See_Comment [Automa rohit message] The UA RBC) system which ge nerated this result transmit rohit reference range : <=2. The reference range was not used to interpr et this result as reji l/abnormal. [facility] AND [id number] 16:34:00 Test Item Value Reference Range Interpretation Comments UA WBC (test code = 6 See_Comment [Automa rohit message] The UA WBC) system which ge nerated this result transmit rohit reference range : <=5. The reference range was not used to interpr et this result as reji l/abnormal. [facility] AND [id number] 16:34:00 Test Item Value Reference Range Interpretation Comments UA Urobilinogen (test code = UA 2.0 0.1-1.0 Urobilinogen) [facility] AND [id number] 16:34:00 Test Item Value Reference Range Interpretation Comments UA Ketones (test code = UA Negative mg/dL Ketones) [facility] AND [id number] 16:34:00 Test Item Value Reference Range Interpretation Comments UA Glucose (test code = UA Glucose) 70 mg/dL [facility] AND [id number] 16:34:00 Test Item Value Reference Range Interpretation Comments UA Blood (test code = Negative (07/25/16 10:34 UA Blood) AM) [facility] AND [id number] 16:34:00 Test Item Value Reference Range Interpretation Comments UA Bili (test code = Negative *NA*(07/25/16 UA Bili) 10:34 AM) [facility] AND [id number] 16:34:00 Test Item Value Reference Range Interpretation Comments UA Protein (test code = UA >=300 mg/dL Protein) [facility] AND [id number] 16:34:00 Test Item Value Reference Range Interpretation Comments UA Spec Grav (test code = UA Spec Grav) 1.012 [facility] AND [id number] 16:34:00 Test Item Value Reference Range Interpretation Comments UA pH (test code = UA pH) 5.5 5.0-8.0 [facility] AND [id number] 16:34:00 Test Item Value Reference Range Interpretation Comments UA Turbidity (test code Slight *ABN*(07/25/16 = UA Turbidity) 10:34 AM) [facility] AND [id number] 16:34:00 Test Item Value Reference Range Interpretation Comments UA Color (test code = Dark Yellow *NA*(07/25/16 UA Color) 10:34 AM) [facility] AND [id number] 16:34:00 Test Item Value Reference Range Interpretation Comments UA Gran Cast (test code = UA Gran Cast) 9 [facility]2017-02-04 16:34:00 Test Item Value Reference Range Interpretation Comments U Sodium (test code = U Sodium) 30 [facility] [id number] 16:34:00 Test Item Value Reference Range Interpretation Comments U Prot/Creat (test code = U Prot/Creat) 3.1 [facility]2017-02-04 16:34:00 Test Item Value Reference Range Interpretation Comments U Protein (test code = U Protein) 420.9 [facility]2017-02-04 16:34:00 Test Item Value Reference Range Interpretation Comments U Creatinine (test code = U 136.00 Creatinine) [facility] AND [id number] 16:34:00 Test Item Value Reference Range Interpretation Comments UA Sq Epi (test code = UA Sq Epi) None Seen [facility] AND [id number] 16:34:00 Test Item Value Reference Range Interpretation Comments UA Waxy Cast (test code = UA Waxy Cast) 1 [facility] AND [id number] 16:34:00 Test Item Value Reference Range Interpretation Comments UA Hyal Cast (test 4 See_Comment [Automat ed message] The code = UA Hyal Cast) system which generated this result transmit rohit reference range : <=2. The reference range was not used to interpr et this result as reji l/abnormal. [facility] AND [id number] 16:34:00 Test Item Value Reference Range Interpretation Comments UA Bacteria (test code = UA Occasional /HPF Bacteria) [facility] AND [id number] 16:34:00 Test Item Value Reference Range Interpretation Comments UA Mucus (test code = UA Mucus) Few /LPF [facility] AND [id number] 16:34:00 Test Item Value Reference Range Interpretation Comments UA Amorph Destiny (test code = Occasional /HPF UA Amorph Destiny) [facility] AND [id number] 16:34:00 Test Item Value Reference Range Interpretation Comments UA Leuk Est (test Negative (07/25/16 10:34 code = UA Leuk Est) AM) [facility] AND [id number] 16:34:00 Test Item Value Reference Range Interpretation Comments UA Nitrite (test code Negative (07/25/16 10:34 = UA Nitrite) AM) [facility] AND [id number] 16:34:00 Test Item Value Reference Range Interpretation Comments UA RBC (test code = 2 See_Comment [Automa rohit message] The UA RBC) system which ge nerated this result transmit rohit reference range : <=2. The reference range was not used to interpr et this result as reji l/abnormal. [facility] AND [id number] 16:34:00 Test Item Value Reference Range Interpretation Comments UA WBC (test code = 6 See_Comment [Automa rohit message] The UA WBC) system which ge nerated this result transmit rohit reference range : <=5. The reference range was not used to interpr et this result as reji l/abnormal. [facility] AND [id number] 16:34:00 Test Item Value Reference Range Interpretation Comments UA Urobilinogen (test code = UA 2.0 0.1-1.0 Urobilinogen) [facility] AND [id number] 16:34:00 Test Item Value Reference Range Interpretation Comments UA Ketones (test code = UA Negative mg/dL Ketones) [facility] AND [id number] 16:34:00 Test Item Value Reference Range Interpretation Comments UA Glucose (test code = UA Glucose) 70 mg/dL [facility] AND [id number] 16:34:00 Test Item Value Reference Range Interpretation Comments UA Blood (test code = Negative (07/25/16 10:34 UA Blood) AM) [facility] AND [id number] 16:34:00 Test Item Value Reference Range Interpretation Comments UA Bili (test code = Negative *NA*(07/25/16 UA Bili) 10:34 AM) [facility] AND [id number] 16:34:00 Test Item Value Reference Range Interpretation Comments UA Protein (test code = UA >=300 mg/dL Protein) [facility] AND [id number] 16:34:00 Test Item Value Reference Range Interpretation Comments UA Spec Grav (test code = UA Spec Grav) 1.012 [facility] AND [id number] 16:34:00 Test Item Value Reference Range Interpretation Comments UA pH (test code = UA pH) 5.5 5.0-8.0 [facility] AND [id number] 16:34:00 Test Item Value Reference Range Interpretation Comments UA Turbidity (test code Slight *ABN*(07/25/16 = UA Turbidity) 10:34 AM) [facility] AND [id number] 16:34:00 Test Item Value Reference Range Interpretation Comments UA Color (test code = Dark Yellow *NA*(07/25/16 UA Color) 10:34 AM) [facility] AND [id number] 16:34:00 Test Item Value Reference Range Interpretation Comments UA Gran Cast (test code = UA Gran Cast) 9 [facility]2017-02-04 16:34:00 Test Item Value Reference Range Interpretation Comments U Sodium (test code = U Sodium) 30 [facility] [id number] 16:34:00 Test Item Value Reference Range Interpretation Comments U Prot/Creat (test code = U Prot/Creat) 3.1 [facility] [id number] 16:34:00 Test Item Value Reference Range Interpretation Comments U Protein (test code = U Protein) 420.9 [facility]2017-02-04 16:34:00 Test Item Value Reference Range Interpretation Comments U Creatinine (test code = U 136.00 Creatinine) [facility] AND [id number] 16:34:00 Test Item Value Reference Range Interpretation Comments UA Sq Epi (test code = UA Sq Epi) None Seen [facility] AND [id number] 16:34:00 Test Item Value Reference Range Interpretation Comments UA Waxy Cast (test code = UA Waxy Cast) 1 [facility] AND [id number] 16:34:00 Test Item Value Reference Range Interpretation Comments UA Hyal Cast (test 4 See_Comment [Automat ed message] The code = UA Hyal Cast) system which generated this result transmit rohit reference range : <=2. The reference range was not used to interpr et this result as reji l/abnormal. [facility] AND [id number] 16:34:00 Test Item Value Reference Range Interpretation Comments UA Bacteria (test code = UA Occasional /HPF Bacteria) [facility] AND [id number] 16:34:00 Test Item Value Reference Range Interpretation Comments UA Mucus (test code = UA Mucus) Few /LPF [facility] AND [id number] 16:34:00 Test Item Value Reference Range Interpretation Comments UA Amorph Destiny (test code = Occasional /HPF UA Amorph Destiny) [facility] AND [id number] 16:34:00 Test Item Value Reference Range Interpretation Comments UA Leuk Est (test Negative (07/25/16 10:34 code = UA Leuk Est) AM) [facility] AND [id number] 16:34:00 Test Item Value Reference Range Interpretation Comments UA Nitrite (test code Negative (07/25/16 10:34 = UA Nitrite) AM) [facility] AND [id number] 16:34:00 Test Item Value Reference Range Interpretation Comments UA RBC (test code = 2 See_Comment [Automa rohit message] The UA RBC) system which ge nerated this result transmit rohit reference range : <=2. The reference range was not used to interpr et this result as reji l/abnormal. [facility] AND [id number] 16:34:00 Test Item Value Reference Range Interpretation Comments UA WBC (test code = 6 See_Comment [Automa rohit message] The UA WBC) system which ge nerated this result transmit rohit reference range : <=5. The reference range was not used to interpr et this result as reji l/abnormal. [facility] AND [id number] 16:34:00 Test Item Value Reference Range Interpretation Comments UA Urobilinogen (test code = UA 2.0 0.1-1.0 Urobilinogen) [facility] AND [id number] 16:34:00 Test Item Value Reference Range Interpretation Comments UA Ketones (test code = UA Negative mg/dL Ketones) [facility] AND [id number] 16:34:00 Test Item Value Reference Range Interpretation Comments UA Glucose (test code = UA Glucose) 70 mg/dL [facility] AND [id number] 16:34:00 Test Item Value Reference Range Interpretation Comments UA Blood (test code = Negative (07/25/16 10:34 UA Blood) AM) [facility] AND [id number] 16:34:00 Test Item Value Reference Range Interpretation Comments UA Bili (test code = Negative *NA*(07/25/16 UA Bili) 10:34 AM) [facility] AND [id number] 16:34:00 Test Item Value Reference Range Interpretation Comments UA Protein (test code = UA >=300 mg/dL Protein) [facility] AND [id number] 16:34:00 Test Item Value Reference Range Interpretation Comments UA Spec Grav (test code = UA Spec Grav) 1.012 [facility] AND [id number] 16:34:00 Test Item Value Reference Range Interpretation Comments UA pH (test code = UA pH) 5.5 5.0-8.0 [facility] AND [id number] 16:34:00 Test Item Value Reference Range Interpretation Comments UA Turbidity (test code Slight *ABN*(07/25/16 = UA Turbidity) 10:34 AM) [facility] AND [id number] 16:34:00 Test Item Value Reference Range Interpretation Comments UA Color (test code = Dark Yellow *NA*(07/25/16 UA Color) 10:34 AM) [facility] AND [id number] 16:34:00 Test Item Value Reference Range Interpretation Comments UA Gran Cast (test code = UA Gran Cast) 9 [facility] [id number] 16:34:00 Test Item Value Reference Range Interpretation Comments U Sodium (test code = U Sodium) 30 [facility]2017-02-04 16:34:00 Test Item Value Reference Range Interpretation Comments U Prot/Creat (test code = U Prot/Creat) 3.1 [facility]2017-02-04 16:34:00 Test Item Value Reference Range Interpretation Comments U Protein (test code = U Protein) 420.9 [facility]2017-02-04 16:34:00 Test Item Value Reference Range Interpretation Comments U Creatinine (test code = U 136.00 Creatinine) [facility] AND [id number] 16:34:00 Test Item Value Reference Range Interpretation Comments UA Sq Epi (test code = UA Sq Epi) None Seen [facility] AND [id number] 16:34:00 Test Item Value Reference Range Interpretation Comments UA Waxy Cast (test code = UA Waxy Cast) 1 [facility] AND [id number] 16:34:00 Test Item Value Reference Range Interpretation Comments UA Hyal Cast (test 4 See_Comment [Automat ed message] The code = UA Hyal Cast) system which generated this result transmit rohit reference range : <=2. The reference range was not used to interpr et this result as reji l/abnormal. [facility] AND [id number] 16:34:00 Test Item Value Reference Range Interpretation Comments UA Bacteria (test code = UA Occasional /HPF Bacteria) [facility] AND [id number] 16:34:00 Test Item Value Reference Range Interpretation Comments UA Mucus (test code = UA Mucus) Few /LPF [facility] AND [id number] 16:34:00 Test Item Value Reference Range Interpretation Comments UA Amorph Destiny (test code = Occasional /HPF UA Amorph Destiny) [facility] AND [id number] 16:34:00 Test Item Value Reference Range Interpretation Comments UA Leuk Est (test Negative (07/25/16 10:34 code = UA Leuk Est) AM) [facility] AND [id number] 16:34:00 Test Item Value Reference Range Interpretation Comments UA Nitrite (test code Negative (07/25/16 10:34 = UA Nitrite) AM) [facility] AND [id number] 16:34:00 Test Item Value Reference Range Interpretation Comments UA RBC (test code = 2 See_Comment [Automa rohit message] The UA RBC) system which ge nerated this result transmit rohit reference range : <=2. The reference range was not used to interpr et this result as reji l/abnormal. [facility] AND [id number] 16:34:00 Test Item Value Reference Range Interpretation Comments UA WBC (test code = 6 See_Comment [Automa rohit message] The UA WBC) system which ge nerated this result transmit rohit reference range : <=5. The reference range was not used to interpr et this result as reij l/abnormal. [facility] AND [id number] 16:34:00 Test Item Value Reference Range Interpretation Comments UA Urobilinogen (test code = UA 2.0 0.1-1.0 Urobilinogen) [facility] AND [id number] 16:34:00 Test Item Value Reference Range Interpretation Comments UA Ketones (test code = UA Negative mg/dL Ketones) [facility] AND [id number] 16:34:00 Test Item Value Reference Range Interpretation Comments UA Glucose (test code = UA Glucose) 70 mg/dL [facility] AND [id number] 16:34:00 Test Item Value Reference Range Interpretation Comments UA Blood (test code = Negative (07/25/16 10:34 UA Blood) AM) [facility] AND [id number] 16:34:00 Test Item Value Reference Range Interpretation Comments UA Bili (test code = Negative *NA*(07/25/16 UA Bili) 10:34 AM) [facility] AND [id number] 16:34:00 Test Item Value Reference Range Interpretation Comments UA Protein (test code = UA >=300 mg/dL Protein) [facility] AND [id number] 16:34:00 Test Item Value Reference Range Interpretation Comments UA Spec Grav (test code = UA Spec Grav) 1.012 [facility] AND [id number] 16:34:00 Test Item Value Reference Range Interpretation Comments UA pH (test code = UA pH) 5.5 5.0-8.0 [facility] AND [id number] 16:34:00 Test Item Value Reference Range Interpretation Comments UA Turbidity (test code Slight *ABN*(07/25/16 = UA Turbidity) 10:34 AM) [facility] AND [id number] 16:34:00 Test Item Value Reference Range Interpretation Comments UA Color (test code = Dark Yellow *NA*(07/25/16 UA Color) 10:34 AM) [facility] AND [id number] 16:34:00 Test Item Value Reference Range Interpretation Comments UA Gran Cast (test code = UA Gran Cast) 9 [facility]2017-02-04 16:34:00 Test Item Value Reference Range Interpretation Comments U Sodium (test code = U Sodium) 30 [facility]2017-02-04 16:34:00 Test Item Value Reference Range Interpretation Comments U Prot/Creat (test code = U Prot/Creat) 3.1 [facility]2017-02-04 16:34:00 Test Item Value Reference Range Interpretation Comments U Protein (test code = U Protein) 420.9 [facility]2017-02-04 16:34:00 Test Item Value Reference Range Interpretation Comments U Creatinine (test code = U 136.00 Creatinine) [facility] AND [id number] 16:34:00 Test Item Value Reference Range Interpretation Comments UA Sq Epi (test code = UA Sq Epi) None Seen [facility] AND [id number] 16:34:00 Test Item Value Reference Range Interpretation Comments UA Waxy Cast (test code = UA Waxy Cast) 1 [facility] AND [id number] 16:34:00 Test Item Value Reference Range Interpretation Comments UA Hyal Cast (test 4 See_Comment [Automat ed message] The code = UA Hyal Cast) system which generated this result transmit rohit reference range : <=2. The reference range was not used to interpr et this result as reji l/abnormal. [facility] AND [id number] 16:34:00 Test Item Value Reference Range Interpretation Comments UA Bacteria (test code = UA Occasional /HPF Bacteria) [facility] AND [id number] 16:34:00 Test Item Value Reference Range Interpretation Comments UA Mucus (test code = UA Mucus) Few /LPF [facility] AND [id number] 16:34:00 Test Item Value Reference Range Interpretation Comments UA Amorph Destiny (test code = Occasional /HPF UA Amorph Destiny) [facility] AND [id number] 16:34:00 Test Item Value Reference Range Interpretation Comments UA Leuk Est (test Negative (07/25/16 10:34 code = UA Leuk Est) AM) [facility] AND [id number] 16:34:00 Test Item Value Reference Range Interpretation Comments UA Nitrite (test code Negative (07/25/16 10:34 = UA Nitrite) AM) [facility] AND [id number] 16:34:00 Test Item Value Reference Range Interpretation Comments UA RBC (test code = 2 See_Comment [Automa rohit message] The UA RBC) system which ge nerated this result transmit rohit reference range : <=2. The reference range was not used to interpr et this result as reji l/abnormal. [facility] AND [id number] 16:34:00 Test Item Value Reference Range Interpretation Comments UA WBC (test code = 6 See_Comment [Automa rohit message] The UA WBC) system which ge nerated this result transmit rohit reference range : <=5. The reference range was not used to interpr et this result as reji l/abnormal. [facility] AND [id number] 16:34:00 Test Item Value Reference Range Interpretation Comments UA Urobilinogen (test code = UA 2.0 0.1-1.0 Urobilinogen) [facility] AND [id number] 16:34:00 Test Item Value Reference Range Interpretation Comments UA Ketones (test code = UA Negative mg/dL Ketones) [facility] AND [id number] 16:34:00 Test Item Value Reference Range Interpretation Comments UA Glucose (test code = UA Glucose) 70 mg/dL [facility] AND [id number] 16:34:00 Test Item Value Reference Range Interpretation Comments UA Blood (test code = Negative (07/25/16 10:34 UA Blood) AM) [facility] AND [id number] 16:34:00 Test Item Value Reference Range Interpretation Comments UA Bili (test code = Negative *NA*(07/25/16 UA Bili) 10:34 AM) [facility] AND [id number] 16:34:00 Test Item Value Reference Range Interpretation Comments UA Protein (test code = UA >=300 mg/dL Protein) [facility] AND [id number] 16:34:00 Test Item Value Reference Range Interpretation Comments UA Spec Grav (test code = UA Spec Grav) 1.012 [facility] AND [id number] 16:34:00 Test Item Value Reference Range Interpretation Comments UA pH (test code = UA pH) 5.5 5.0-8.0 [facility] AND [id number] 16:34:00 Test Item Value Reference Range Interpretation Comments UA Turbidity (test code Slight *ABN*(07/25/16 = UA Turbidity) 10:34 AM) [facility] AND [id number] 16:34:00 Test Item Value Reference Range Interpretation Comments UA Color (test code = Dark Yellow *NA*(07/25/16 UA Color) 10:34 AM) [facility] AND [id number] 16:34:00 Test Item Value Reference Range Interpretation Comments UA Gran Cast (test code = UA Gran Cast) 9 [facility]2017-02-04 16:34:00 Test Item Value Reference Range Interpretation Comments U Sodium (test code = U Sodium) 30 [facility]2017-02-04 16:34:00 Test Item Value Reference Range Interpretation Comments U Prot/Creat (test code = U Prot/Creat) 3.1 [facility]2017-02-04 16:34:00 Test Item Value Reference Range Interpretation Comments U Protein (test code = U Protein) 420.9 [facility]2017-02-04 16:34:00 Test Item Value Reference Range Interpretation Comments U Creatinine (test code = U 136.00 Creatinine) [facility] [employer] [id number] 08:55:00 Test Item Value Reference Range Interpretation Comments Magnesium Lvl (test code = Magnesium 2.0 1.8-2.4 Lvl) [facility] [id number] 08:55:00 Test Item Value Reference Range Interpretation Comments Phosphorus (test code = Phosphorus) 5.2 2.5-4.5 [facility] [id number] 08:55:00 Test Item Value Reference Range Interpretation Comments Magnesium Lvl (test code = Magnesium 2.0 1.8-2.4 Lvl) [facility]2017-02-04 08:55:00 Test Item Value Reference Range Interpretation Comments Phosphorus (test code = Phosphorus) 5.2 2.5-4.5 [facility]2017-02-04 08:55:00 Test Item Value Reference Range Interpretation Comments Magnesium Lvl (test code = Magnesium 2.0 1.8-2.4 Lvl) [facility]2017-02-04 08:55:00 Test Item Value Reference Range Interpretation Comments Phosphorus (test code = Phosphorus) 5.2 2.5-4.5 [facility]2017-02-04 08:55:00 Test Item Value Reference Range Interpretation Comments Magnesium Lvl (test code = Magnesium 2.0 1.8-2.4 Lvl) [facility]2017-02-04 08:55:00 Test Item Value Reference Range Interpretation Comments Phosphorus (test code = Phosphorus) 5.2 2.5-4.5 [facility]2017-02-04 08:55:00 Test Item Value Reference Range Interpretation Comments Magnesium Lvl (test code = Magnesium 2.0 1.8-2.4 Lvl) [facility]2017-02-04 08:55:00 Test Item Value Reference Range Interpretation Comments Phosphorus (test code = Phosphorus) 5.2 2.5-4.5 [facility] [id number] 17:29:00 Test Item Value Reference Range Interpretation Comments Troponin-I (test code 0.28 See_Comment [Auto mated message] The = Troponin-I) system which g enerated this result transmit rohit reference range : <=0.40. The reference r leo was not used to interpr et this result as reji l/abnormal. [facility] [id number] 17:29:00 Test Item Value Reference Range Interpretation Comments Total CK (test code = Total CK) 2616 12-191 [facility] [id number] 17:29:00 Test Item Value Reference Range Interpretation Comments Troponin-T (test code 0.144 See_Comment [Auto mated message] The = Troponin-T) system which g enerated this result transmit rohit reference range : <=0.100. The reference r leo was not used to interpr et this result as reji l/abnormal. [facility] [employer] [id number] 17:29:00 Test Item Value Reference Range Interpretation Comments CK MB Index (test 0.2 See_Comment [Automate d message] The code = CK MB Index) system w [facility] generated this result transmit rohit reference range : <=2.5. The reference range was not used to interpr et this result as reji l/abnormal. [facility] [employer] [id number] 17:29:00 Test Item Value Reference Range Interpretation Comments CK MB (test code = CK MB) 6.3 0.5-3.6 [facility] [id number] 17:29:00 Test Item Value Reference Range Interpretation Comments Troponin-I (test code 0.28 See_Comment [Auto mated message] The = Troponin-I) system which g enerated this result transmit rohit reference range : <=0.40. The reference r leo was not used to interpr et this result as reji l/abnormal. [facility] [employer] [id number] 17:29:00 Test Item Value Reference Range Interpretation Comments Total CK (test code = Total CK) 2616 12-191 [facility] [employer]2017-02-03 17:29:00 Test Item Value Reference Range Interpretation Comments Troponin-T (test code 0.144 See_Comment [Auto mated message] The = Troponin-T) system which g enerated this result transmit rohit reference range : <=0.100. The reference r leo was not used to interpr et this result as reji l/abnormal. [facility] [employer] [id number] 17:29:00 Test Item Value Reference Range Interpretation Comments CK MB Index (test 0.2 See_Comment [Automate d message] The code = CK MB Index) system w [facility] generated this result transmit rohit reference range : <=2.5. The reference range was not used to interpr et this result as reji l/abnormal. [facility] [employer] [id number] 17:29:00 Test Item Value Reference Range Interpretation Comments CK MB (test code = CK MB) 6.3 0.5-3.6 [facility] [employer]AC [id number] 17:29:00 Test Item Value Reference Range Interpretation Comments Troponin-I (test code 0.28 See_Comment [Auto mated message] The = Troponin-I) system which g enerated this result transmit rohit reference range : <=0.40. The reference r leo was not used to interpr et this result as reji l/abnormal. [email or web address].com2017-02-03 17:29:00 Test Item Value Reference Range Interpretation Comments Total CK (test code = Total CK) 261191 [facility] ResourcesReveal [id number] 17:29:00 Test Item Value Reference Range Interpretation Comments Troponin-T (test code 0.144 See_Comment [Auto mated message] The = Troponin-T) system which g enerated this result transmit rohit reference range : <=0.100. The reference r leo was not used to interpr et this result as reji l/abnormal. [email or web address]2017-02-03 17:29:00 Test Item Value Reference Range Interpretation Comments CK MB Index (test 0.2 See_Comment [Automate d message] The code = CK MB Index) system w [facility] generated this result transmit rohit reference range : <=2.5. The reference range was not used to interpr et this result as reji l/abnormal. [email or web address]2017-02-03 17:29:00 Test Item Value Reference Range Interpretation Comments CK MB (test code = CK MB) 6.3 0.5-3.6 [facility] ResourcesReveal [id number] 17:29:00 Test Item Value Reference Range Interpretation Comments Troponin-I (test code 0.28 See_Comment [Auto mated message] The = Troponin-I) system which g enerated this result transmit rohit reference range : <=0.40. The reference r leo was not used to interpr et this result as reji l/abnormal. [facility] [employer]2017-02-03 17:29:00 Test Item Value Reference Range Interpretation Comments Total CK (test code = Total CK) 261191 [email or web address]2017-02-03 17:29:00 Test Item Value Reference Range Interpretation Comments Troponin-T (test code 0.144 See_Comment [Auto mated message] The = Troponin-T) system which g enerated this result transmit rohit reference range : <=0.100. The reference r leo was not used to interpr et this result as reji l/abnormal. [facility] [employer]2017-02-03 17:29:00 Test Item Value Reference Range Interpretation Comments CK MB Index (test 0.2 See_Comment [Automate d message] The code = CK MB Index) system w [facility] generated this result transmit rohit reference range : <=2.5. The reference range was not used to interpr et this result as reji l/abnormal. [facility] [employer]2017-02-03 17:29:00 Test Item Value Reference Range Interpretation Comments CK MB (test code = CK MB) 6.3 0.5-3.6 [email or web address]2017-02-03 17:29:00 Test Item Value Reference Range Interpretation Comments Troponin-I (test code 0.28 See_Comment [Auto mated message] The = Troponin-I) system which g enerated this result transmit rohit reference range : <=0.40. The reference r leo was not used to interpr et this result as reji l/abnormal. [facility] [employer]2017-02-03 17:29:00 Test Item Value Reference Range Interpretation Comments Total CK (test code = Total CK) 2616 12-191 [email or web address]2017-02-03 17:29:00 Test Item Value Reference Range Interpretation Comments Troponin-T (test code 0.144 See_Comment [Auto mated message] The = Troponin-T) system which g enerated this result transmit rohit reference range : <=0.100. The reference r leo was not used to interpr et this result as reji l/abnormal. [facility] [employer]2017-02-03 17:29:00 Test Item Value Reference Range Interpretation Comments CK MB Index (test 0.2 See_Comment [Automate d message] The code = CK MB Index) system w [facility] generated this result transmit rohit reference range : <=2.5. The reference range was not used to interpr et this result as reji l/abnormal. [facility] [employer]2017-02-03 17:29:00 Test Item Value Reference Range Interpretation Comments CK MB (test code = CK MB) 6.3 0.5-3.6 [facility] DallasMoveableCode, Inc[facility] [id number] 11:20:00 Test Item Value Reference Range Interpretation Comments Troponin-I (test code 0.38 See_Comment [Auto mated message] The = Troponin-I) system which g enerated this result transmit rohit reference range : <=0.40. The reference r leo was not used to interpr et this result as reji l/abnormal. [email or web address]2017-02-03 11:20:00 Test Item Value Reference Range Interpretation Comments Troponin-T (test code 0.173 See_Comment [Auto mated message] The = Troponin-T) system which g enerated this result transmit rohit reference range : <=0.100. The reference r leo was not used to interpr et this result as reji l/abnormal. [facility] DallasMoveable[facility] [id number] 11:20:00 Test Item Value Reference Range Interpretation Comments CK MB Index (test 0.2 See_Comment [Automate d message] The code = CK MB Index) system w [facility] generated this result transmit rohit reference range : <=2.5. The reference range was not used to interpr et this result as reji l/abnormal. [email or web address] 11:20:00 Test Item Value Reference Range Interpretation Comments CK MB (test code = CK MB) 5.6 0.5-3.6 [facility] [id number] 11:20:00 Test Item Value Reference Range Interpretation Comments Phosphorus (test code = Phosphorus) 5.5 2.5-4.5 [email or web address]2017-02-03 11:20:00 Test Item Value Reference Range Interpretation Comments Troponin-I (test code 0.38 See_Comment [Auto mated message] The = Troponin-I) system which g enerated this result transmit rohit reference range : <=0.40. The reference r leo was not used to interpr et this result as reji l/abnormal. [facility] [employer]2017-02-03 11:20:00 Test Item Value Reference Range Interpretation Comments Troponin-T (test code 0.173 See_Comment [Auto mated message] The = Troponin-T) system which g enerated this result transmit rohit reference range : <=0.100. The reference r leo was not used to interpr et this result as reji l/abnormal. [facility] [employer]2017-02-03 11:20:00 Test Item Value Reference Range Interpretation Comments CK MB Index (test 0.2 See_Comment [Automate d message] The code = CK MB Index) system w [facility] generated this result transmit rohit reference range : <=2.5. The reference range was not used to interpr et this result as reji l/abnormal. [facility] [employer]2017-02-03 11:20:00 Test Item Value Reference Range Interpretation Comments CK MB (test code = CK MB) 5.6 0.5-3.6 [facility] [employer] [id number] 11:20:00 Test Item Value Reference Range Interpretation Comments Phosphorus (test code = Phosphorus) 5.5 2.5-4.5 [facility] [employer]2017-02-03 11:20:00 Test Item Value Reference Range Interpretation Comments Troponin-I (test code 0.38 See_Comment [Auto mated message] The = Troponin-I) system which g enerated this result transmit rohit reference range : <=0.40. The reference r leo was not used to interpr et this result as reji l/abnormal. [facility] [employer]2017-02-03 11:20:00 Test Item Value Reference Range Interpretation Comments Troponin-T (test code 0.173 See_Comment [Auto mated message] The = Troponin-T) system which g enerated this result transmit rohit reference range : <=0.100. The reference r leo was not used to interpr et this result as reji l/abnormal. [facility] [employer]2017-02-03 11:20:00 Test Item Value Reference Range Interpretation Comments CK MB Index (test 0.2 See_Comment [Automate d message] The code = CK MB Index) system w [facility] generated this result transmit rohit reference range : <=2.5. The reference range was not used to interpr et this result as reji l/abnormal. [facility] [employer]2017-02-03 11:20:00 Test Item Value Reference Range Interpretation Comments CK MB (test code = CK MB) 5.6 0.5-3.6 [facility] [employer] [id number] 11:20:00 Test Item Value Reference Range Interpretation Comments Phosphorus (test code = Phosphorus) 5.5 2.5-4.5 [facility] [employer]2017-02-03 11:20:00 Test Item Value Reference Range Interpretation Comments Troponin-I (test code 0.38 See_Comment [Auto mated message] The = Troponin-I) system which g enerated this result transmit rohit reference range : <=0.40. The reference r leo was not used to interpr et this result as reji l/abnormal. [facility] [employer]2017-02-03 11:20:00 Test Item Value Reference Range Interpretation Comments Troponin-T (test code 0.173 See_Comment [Auto mated message] The = Troponin-T) system which g enerated this result transmit rohit reference range : <=0.100. The reference r leo was not used to interpr et this result as reji l/abnormal. [facility] [employer]2017-02-03 11:20:00 Test Item Value Reference Range Interpretation Comments CK MB Index (test 0.2 See_Comment [Automate d message] The code = CK MB Index) system w [facility] generated this result transmit rohit reference range : <=2.5. The reference range was not used to interpr et this result as reji l/abnormal. [facility] [employer]2017-02-03 11:20:00 Test Item Value Reference Range Interpretation Comments CK MB (test code = CK MB) 5.6 0.5-3.6 [facility] [employer] [id number] 11:20:00 Test Item Value Reference Range Interpretation Comments Phosphorus (test code = Phosphorus) 5.5 2.5-4.5 [facility] [employer]2017-02-03 11:20:00 Test Item Value Reference Range Interpretation Comments Troponin-I (test code 0.38 See_Comment [Auto mated message] The = Troponin-I) system which g enerated this result transmit rohit reference range : <=0.40. The reference r leo was not used to interpr et this result as reji l/abnormal. [facility] [employer]2017-02-03 11:20:00 Test Item Value Reference Range Interpretation Comments Troponin-T (test code 0.173 See_Comment [Auto mated message] The = Troponin-T) system which g enerated this result transmit rohit reference range : <=0.100. The reference r leo was not used to interpr et this result as reji l/abnormal. [facility] [employer] [id number] 11:20:00 Test Item Value Reference Range Interpretation Comments CK MB Index (test 0.2 See_Comment [Automate d message] The code = CK MB Index) system w [facility] generated this result transmit rohit reference range : <=2.5. The reference range was not used to interpr et this result as reji l/abnormal. [facility] [employer] [id number] 11:20:00 Test Item Value Reference Range Interpretation Comments CK MB (test code = CK MB) 5.6 0.5-3.6 [facility] [employer] [id number] 11:20:00 Test Item Value Reference Range Interpretation Comments Phosphorus (test code = Phosphorus) 5.5 2.5-4.5 [facility] [employer]AC [id number] 06:18:00 Test Item Value Reference Range Interpretation Comments BNP (test code = BNP) 701 [facility] [employer] [id number] 06:18:00 Test Item Value Reference Range Interpretation Comments BNP (test code = BNP) 701 [facility] [employer] [id number] 06:18:00 Test Item Value Reference Range Interpretation Comments BNP (test code = BNP) 701 [facility] [employer] [id number] 06:18:00 Test Item Value Reference Range Interpretation Comments BNP (test code = BNP) 701 [facility] [employer]AC [id number] 06:18:00 Test Item Value Reference Range Interpretation Comments BNP (test code = BNP) 701 [facility] [employer] [id number] 04:59:27 Test Item Value Reference Range Interpretation Comments Troponin-I (test code 0.57 See_Comment [Auto mated message] The = Troponin-I) system which g enerated this result transmit rohit reference range : <=0.40. The reference r leo was not used to interpr et this result as reji l/abnormal. [facility] [employer]2017-02-03 04:59:27 Test Item Value Reference Range Interpretation Comments Troponin-I (test code 0.57 See_Comment [Auto mated message] The = Troponin-I) system which g enerated this result transmit rohit reference range : <=0.40. The reference r leo was not used to interpr et this result as reji l/abnormal. [facility] [employer]2017-02-03 04:59:27 Test Item Value Reference Range Interpretation Comments Troponin-I (test code 0.57 See_Comment [Auto mated message] The = Troponin-I) system which g enerated this result transmit rohit reference range : <=0.40. The reference r leo was not used to interpr et this result as reji l/abnormal. [facility] [employer]2017-02-03 04:59:27 Test Item Value Reference Range Interpretation Comments Troponin-I (test code 0.57 See_Comment [Auto mated message] The = Troponin-I) system which g enerated this result transmit rohit reference range : <=0.40. The reference r leo was not used to interpr et this result as reji l/abnormal. [facility] [employer]2017-02-03 04:59:27 Test Item Value Reference Range Interpretation Comments Troponin-I (test code 0.57 See_Comment [Auto mated message] The = Troponin-I) system which g enerated this result transmit rohit reference range : <=0.40. The reference r leo was not used to interpr et this result as reji l/abnormal. [facility] [employer]2016-12-26 10:22:00 Test Item Value Reference Range Interpretation Comments BNP (test code = BNP) 526 [facility] [employer]2016-12-26 10:22:00 Test Item Value Reference Range Interpretation Comments Magnesium Lvl (test code = Magnesium 2.1 1.8-2.4 Lvl) [facility] [employer]2016-12-26 10:22:00 Test Item Value Reference Range Interpretation Comments Glucose Lvl (test code = Glucose Lvl) 117 70-99 [facility] [employer]2016-12-26 10:22:00 Test Item Value Reference Range Interpretation Comments BUN (test code = BUN) 41 7-22 [facility]2016-12-26 10:22:00 Test Item Value Reference Range Interpretation Comments Creatinine Lvl (test code = Creatinine 2.00 0.50-1.40 Lvl) [facility]2016-12-26 10:22:00 Test Item Value Reference Range Interpretation Comments Calcium Lvl (test code = Calcium Lvl) 9.0 8.5-10.5 [facility]2016-12-26 10:22:00 Test Item Value Reference Range Interpretation Comments Chloride Lvl (test code = Chloride Lvl) 102 95-109 [facility]2016-12-26 10:22:00 Test Item Value Reference Range Interpretation Comments CO2 (test code = CO2) 33 24-32 [facility]2016-12-26 10:22:00 Test Item Value Reference Range Interpretation Comments Sodium Lvl (test code = Sodium Lvl) 144 135-145 [facility]2016-12-26 10:22:00 Test Item Value Reference Range Interpretation Comments Potassium Lvl (test code = Potassium 4.0 3.5-5.1 Lvl) [facility]2016-12-26 10:22:00 Test Item Value Reference Range Interpretation Comments eGFR (test code = eGFR) 32 [facility]2016-12-26 10:22:00 Test Item Value Reference Range Interpretation Comments AGAP (test code = AGAP) 13.0 10.0-20.0 [facility]2016-12-26 10:22:00 Test Item Value Reference Range Interpretation Comments Phosphorus (test code = Phosphorus) 4.6 2.5-4.5 [facility]baxviyRRVVQLKOLI9340-65-62 10:22:00 Test Item Value Reference Range Interpretation Comments RBC (test code = RBC) 3.68 4.20-5.40 [facility] HospitalEssqywnPEBGXZTUKY7393-87-69 10:22:00 Test Item Value Reference Range Interpretation Comments Hgb (test code = Hgb) 9.9 12.0-16.0 [facility] HospitalGpechgwUNFEMRUPWN3651-05-06 10:22:00 Test Item Value Reference Range Interpretation Comments MCH (test code = MCH) 26.8 pg 27.0-31.0 [facility] HospitalWfrryhxWYGYXCWVGU1752-60-00 10:22:00 Test Item Value Reference Range Interpretation Comments MCHC (test code = MCHC) 34.2 32.0-36.0 [facility] HospitalDrelxrpTYMRUTXEMY3572-92-04 10:22:00 Test Item Value Reference Range Interpretation Comments MCV (test code = MCV) 78.3 80.0-98.0 [facility] HospitalPevzomrFNIHIGSGIV9853-67-96 10:22:00 Test Item Value Reference Range Interpretation Comments Hct (test code = Hct) 28.8 36.0-48.0 [facility] HospitalEsbgfscMBHILWUGYB8705-74-81 10:22:00 Test Item Value Reference Range Interpretation Comments Platelet (test code = Platelet) 191 133-450 [facility] HospitalTzbfvlnMFANCRXHPA4905-13-10 10:22:00 Test Item Value Reference Range Interpretation Comments MPV (test code = MPV) 9.5 7.4-10.4 [facility] HospitalVpmhgyhEUWLRYBAXO1692-83-21 10:22:00 Test Item Value Reference Range Interpretation Comments RDW (test code = RDW) 15.3 11.5-14.5 [facility] HospitalLojmimpJZDBSXJLGZ8231-00-18 10:22:00 Test Item Value Reference Range Interpretation Comments WBC (test code = WBC) 5.6 3.7-10.4 [facility] HospitalWuenwnyYHHRZOWXBB9092-19-40 10:22:00 Test Item Value Reference Range Interpretation Comments Eosinophils # (test code 0.5 See_Comment [A utomated message] The = Eosinophils #) system whic h generated this result tra nsmitted reference range : <=0.5. The reference r leo was not used to int erpret this result as normal/abnormal . [facility] HospitalQfoaucyBGBBFGUOQB3149-96-14 10:22:00 Test Item Value Reference Range Interpretation Comments Microcyte (test code = 1+ *ABN*(06/15/16 Microcyte) 4:22 AM) [facility] HospitalSlgabwhKTRVPOKDVD8985-98-43 10:22:00 Test Item Value Reference Range Interpretation Comments Basophils # (test code 0.1 See_Comment [Aut omated message] The = Basophils #) system which generated this result tra nsmitted reference range : <=0.2. The reference r leo was not used to int erpret this result as normal/abnormal . [facility] HospitalTxrgowkQCTRGLXJNF0980-55-84 10:22:00 Test Item Value Reference Range Interpretation Comments Lymphocytes (test code = Lymphocytes) 33.5 20.0-40.0 [facility] HospitalQkpbnfqNPQBCOIMWF1862-78-43 10:22:00 Test Item Value Reference Range Interpretation Comments Segs (test code = Segs) 47.6 45.0-75.0 [facility] HospitalRhgltyqRJSNGYXZQA0831-40-49 10:22:00 Test Item Value Reference Range Interpretation Comments Monocytes (test code = Monocytes) 8.4 2.0-12.0 [facility] HospitalRpzzgzpYGZIMNLVVV3969-53-79 10:22:00 Test Item Value Reference Range Interpretation Comments Eosinophils (test code = 9.4 See_Comment [A utomated message] The Eosinophils) system which ge nerated this result tra nsmitted reference range : <=4.0. The reference r leo was not used to int erpret this result as normal/abnormal . [facility] HospitalBkocbhoLMHIXWJYEB2329-50-87 10:22:00 Test Item Value Reference Range Interpretation Comments Segs-Bands # (test code = Segs-Bands #) 2.6 1.5-8.1 [facility] HospitalFtupezbBIKWZTHVEL0058-31-81 10:22:00 Test Item Value Reference Range Interpretation Comments Lymphocytes # (test code = Lymphocytes 1.9 1.0-5.5 #) [facility] HospitalZimowxtAGCHDLFUBH5541-07-58 10:22:00 Test Item Value Reference Range Interpretation Comments Basophils (test code = 1.1 See_Comment [Aut omated message] The Basophils) system which ge nerated this result tra nsmitted reference range : <=1.0. The reference r leo was not used to int erpret this result as normal/abnormal . [facility] HospitalBfkgugdWIRORZUSWO1089-61-04 10:22:00 Test Item Value Reference Range Interpretation Comments Monocytes # (test code 0.5 See_Comment [Aut omated message] The = Monocytes #) system which generated this result tra nsmitted reference range : <=0.8. The reference r leo was not used to int erpret this result as normal/abnormal . [facility] ResourcesCARDIAC FNPIIYQ8431-92-93 10:22:00 Test Item Value Reference Range Interpretation Comments BNP (test code = BNP) 526 [facility] ResourcesMachine [employer] JWEYG6186-67-59 10:22:00 Test Item Value Reference Range Interpretation Comments Magnesium Lvl (test code = Magnesium 2.1 1.8-2.4 Lvl) [facility]2016-12-26 10:22:00 Test Item Value Reference Range Interpretation Comments Glucose Lvl (test code = Glucose Lvl) 117 70-99 [facility]2016-12-26 10:22:00 Test Item Value Reference Range Interpretation Comments BUN (test code = BUN) 41 7-22 [facility]2016-12-26 10:22:00 Test Item Value Reference Range Interpretation Comments Creatinine Lvl (test code = Creatinine 2.00 0.50-1.40 Lvl) [facility]2016-12-26 10:22:00 Test Item Value Reference Range Interpretation Comments Calcium Lvl (test code = Calcium Lvl) 9.0 8.5-10.5 [facility]2016-12-26 10:22:00 Test Item Value Reference Range Interpretation Comments Chloride Lvl (test code = Chloride Lvl) 102 95-109 [facility]2016-12-26 10:22:00 Test Item Value Reference Range Interpretation Comments CO2 (test code = CO2) 33 24-32 [facility]2016-12-26 10:22:00 Test Item Value Reference Range Interpretation Comments Sodium Lvl (test code = Sodium Lvl) 144 135-145 [facility]2016-12-26 10:22:00 Test Item Value Reference Range Interpretation Comments Potassium Lvl (test code = Potassium 4.0 3.5-5.1 Lvl) [facility]2016-12-26 10:22:00 Test Item Value Reference Range Interpretation Comments eGFR (test code = eGFR) 32 [facility]2016-12-26 10:22:00 Test Item Value Reference Range Interpretation Comments AGAP (test code = AGAP) 13.0 10.0-20.0 [facility]2016-12-26 10:22:00 Test Item Value Reference Range Interpretation Comments Phosphorus (test code = Phosphorus) 4.6 2.5-4.5 [facility] HospitalMxwbyjqDSZNKZMGIO9487-06-76 10:22:00 Test Item Value Reference Range Interpretation Comments RBC (test code = RBC) 3.68 4.20-5.40 [facility] HospitalRdyvfcfTKGTQXWQWG1183-74-46 10:22:00 Test Item Value Reference Range Interpretation Comments Hgb (test code = Hgb) 9.9 12.0-16.0 [facility] HospitalJrfkydnTYVOFFYUQI5699-36-17 10:22:00 Test Item Value Reference Range Interpretation Comments MCH (test code = MCH) 26.8 pg 27.0-31.0 [facility] HospitalDpbatjfHXJDRERBVD5398-46-56 10:22:00 Test Item Value Reference Range Interpretation Comments MCHC (test code = MCHC) 34.2 32.0-36.0 [facility] HospitalIpadlvrUFKZTMWXGE3757-88-22 10:22:00 Test Item Value Reference Range Interpretation Comments MCV (test code = MCV) 78.3 80.0-98.0 [facility] HospitalQirwpedODQETUNGSA0181-91-17 10:22:00 Test Item Value Reference Range Interpretation Comments Hct (test code = Hct) 28.8 36.0-48.0 [facility] HospitalAmdoucjTKUBSFARSE5333-07-71 10:22:00 Test Item Value Reference Range Interpretation Comments Platelet (test code = Platelet) 191 133-450 [facility] HospitalZavfowmXRJOQZUGOZ5992-66-21 10:22:00 Test Item Value Reference Range Interpretation Comments MPV (test code = MPV) 9.5 7.4-10.4 [facility] HospitalWciqwgiHFEKHHPABZ3067-94-78 10:22:00 Test Item Value Reference Range Interpretation Comments RDW (test code = RDW) 15.3 11.5-14.5 [facility] HospitalKkvwbaiTJYUADVDUI6640-19-79 10:22:00 Test Item Value Reference Range Interpretation Comments WBC (test code = WBC) 5.6 3.7-10.4 [facility] HospitalTgbyoueMTTMIWUVUN0950-33-60 10:22:00 Test Item Value Reference Range Interpretation Comments Eosinophils # (test code 0.5 See_Comment [A utomated message] The = Eosinophils #) system whic h generated this result tra nsmitted reference range : <=0.5. The reference r leo was not used to int erpret this result as normal/abnormal . [facility] HospitalWcowbknFFFQAGQFFW9688-60-76 10:22:00 Test Item Value Reference Range Interpretation Comments Microcyte (test code = 1+ *ABN*(06/15/16 Microcyte) 4:22 AM) [facility] HospitalOqvbqegPEVDKYOPWK7046-28-44 10:22:00 Test Item Value Reference Range Interpretation Comments Basophils # (test code 0.1 See_Comment [Aut omated message] The = Basophils #) system which generated this result tra nsmitted reference range : <=0.2. The reference r leo was not used to int erpret this result as normal/abnormal . [facility] HospitalGnvzhecHZXKBJTACV3949-67-72 10:22:00 Test Item Value Reference Range Interpretation Comments Lymphocytes (test code = Lymphocytes) 33.5 20.0-40.0 [facility] HospitalPvqximaZDHZXPBRHG8594-38-91 10:22:00 Test Item Value Reference Range Interpretation Comments Segs (test code = Segs) 47.6 45.0-75.0 [facility] HospitalGaquczwGXMCYEEIHF2805-15-18 10:22:00 Test Item Value Reference Range Interpretation Comments Monocytes (test code = Monocytes) 8.4 2.0-12.0 [facility] HospitalRadhempRRIYNHSBBR6325-07-74 10:22:00 Test Item Value Reference Range Interpretation Comments Eosinophils (test code = 9.4 See_Comment [A utomated message] The Eosinophils) system which ge nerated this result tra nsmitted reference range : <=4.0. The reference r leo was not used to int erpret this result as normal/abnormal . [facility] HospitalSwunonvKIVKLZXIVV3819-32-28 10:22:00 Test Item Value Reference Range Interpretation Comments Segs-Bands # (test code = Segs-Bands #) 2.6 1.5-8.1 [facility] HospitalHslntplWIUYOSACGT6033-83-65 10:22:00 Test Item Value Reference Range Interpretation Comments Lymphocytes # (test code = Lymphocytes 1.9 1.0-5.5 #) [facility] HospitalWhrrcdtHDAYFEGRWY4763-49-81 10:22:00 Test Item Value Reference Range Interpretation Comments Basophils (test code = 1.1 See_Comment [Aut omated message] The Basophils) system which ge nerated this result tra nsmitted reference range : <=1.0. The reference r leo was not used to int erpret this result as normal/abnormal . [facility] HospitalAgrnufbKFPOCQPAEA2301-27-10 10:22:00 Test Item Value Reference Range Interpretation Comments Monocytes # (test code 0.5 See_Comment [Aut omated message] The = Monocytes #) system which generated this result tra nsmitted reference range : <=0.8. The reference r leo was not used to int erpret this result as normal/abnormal . [facility] ResourcesCARDIAC GKEEGPY9811-84-40 10:22:00 Test Item Value Reference Range Interpretation Comments BNP (test code = BNP) 526 [facility]2016-12-26 10:22:00 Test Item Value Reference Range Interpretation Comments Magnesium Lvl (test code = Magnesium 2.1 1.8-2.4 Lvl) [facility]2016-12-26 10:22:00 Test Item Value Reference Range Interpretation Comments Glucose Lvl (test code = Glucose Lvl) 117 70-99 [facility]2016-12-26 10:22:00 Test Item Value Reference Range Interpretation Comments BUN (test code = BUN) 41 7-22 [facility]2016-12-26 10:22:00 Test Item Value Reference Range Interpretation Comments Creatinine Lvl (test code = Creatinine 2.00 0.50-1.40 Lvl) [facility]2016-12-26 10:22:00 Test Item Value Reference Range Interpretation Comments Calcium Lvl (test code = Calcium Lvl) 9.0 8.5-10.5 [facility]2016-12-26 10:22:00 Test Item Value Reference Range Interpretation Comments Chloride Lvl (test code = Chloride Lvl) 102 95-109 [facility]2016-12-26 10:22:00 Test Item Value Reference Range Interpretation Comments CO2 (test code = CO2) 33 24-32 [facility]2016-12-26 10:22:00 Test Item Value Reference Range Interpretation Comments Sodium Lvl (test code = Sodium Lvl) 144 135-145 [facility]2016-12-26 10:22:00 Test Item Value Reference Range Interpretation Comments Potassium Lvl (test code = Potassium 4.0 3.5-5.1 Lvl) [facility]2016-12-26 10:22:00 Test Item Value Reference Range Interpretation Comments eGFR (test code = eGFR) 32 [facility]2016-12-26 10:22:00 Test Item Value Reference Range Interpretation Comments AGAP (test code = AGAP) 13.0 10.0-20.0 [facility]2016-12-26 10:22:00 Test Item Value Reference Range Interpretation Comments Phosphorus (test code = Phosphorus) 4.6 2.5-4.5 [facility] HospitalSqbbtnpFYQKGLTURW7852-66-82 10:22:00 Test Item Value Reference Range Interpretation Comments RBC (test code = RBC) 3.68 4.20-5.40 [facility] HospitalTlyztojZTMCRPYDBE6612-63-93 10:22:00 Test Item Value Reference Range Interpretation Comments Hgb (test code = Hgb) 9.9 12.0-16.0 [facility] HospitalMjrqexyGHQNHOQBNX6053-65-89 10:22:00 Test Item Value Reference Range Interpretation Comments MCH (test code = MCH) 26.8 pg 27.0-31.0 [facility] HospitalUtukdgoRINVLIHEPQ7958-95-98 10:22:00 Test Item Value Reference Range Interpretation Comments MCHC (test code = MCHC) 34.2 32.0-36.0 [facility] HospitalLdpjwkfNKUVYMHFOY7410-14-52 10:22:00 Test Item Value Reference Range Interpretation Comments MCV (test code = MCV) 78.3 80.0-98.0 [facility] HospitalMqofcovERSDVSKGGE3410-83-95 10:22:00 Test Item Value Reference Range Interpretation Comments Hct (test code = Hct) 28.8 36.0-48.0 [facility] HospitalLwqmeixRENFPKAPQH8178-12-58 10:22:00 Test Item Value Reference Range Interpretation Comments Platelet (test code = Platelet) 191 133-450 [facility] HospitalHijxydcHNZTMXHUQC8245-93-39 10:22:00 Test Item Value Reference Range Interpretation Comments MPV (test code = MPV) 9.5 7.4-10.4 [facility] HospitalNrmlgleTNMJWHVCAB3746-93-75 10:22:00 Test Item Value Reference Range Interpretation Comments RDW (test code = RDW) 15.3 11.5-14.5 [facility] HospitalOyrmvxyYDONFMURRR5723-99-54 10:22:00 Test Item Value Reference Range Interpretation Comments WBC (test code = WBC) 5.6 3.7-10.4 [facility] HospitalOyqjejhOOYILUYDNL3755-87-88 10:22:00 Test Item Value Reference Range Interpretation Comments Eosinophils # (test code 0.5 See_Comment [A utomated message] The = Eosinophils #) system whic h generated this result tra nsmitted reference range : <=0.5. The reference r leo was not used to int erpret this result as normal/abnormal . [facility] HospitalDzanmpiNUVGTWKBFW7410-52-62 10:22:00 Test Item Value Reference Range Interpretation Comments Microcyte (test code = 1+ *ABN*(06/15/16 Microcyte) 4:22 AM) [facility] HospitalLwrsyjtITZTTZMYQT9728-23-00 10:22:00 Test Item Value Reference Range Interpretation Comments Basophils # (test code 0.1 See_Comment [Aut omated message] The = Basophils #) system which generated this result tra nsmitted reference range : <=0.2. The reference r leo was not used to int erpret this result as normal/abnormal . [facility] HospitalIwtzahtZRKVIXXKQO2779-20-15 10:22:00 Test Item Value Reference Range Interpretation Comments Lymphocytes (test code = Lymphocytes) 33.5 20.0-40.0 [facility] HospitalYvdskooFQHDVGAGNH1851-91-96 10:22:00 Test Item Value Reference Range Interpretation Comments Segs (test code = Segs) 47.6 45.0-75.0 [facility] HospitalYgbendaLGDIGQSUTS6083-57-26 10:22:00 Test Item Value Reference Range Interpretation Comments Monocytes (test code = Monocytes) 8.4 2.0-12.0 [facility] HospitalXmgvcdaYCVNBJAPYZ9359-62-31 10:22:00 Test Item Value Reference Range Interpretation Comments Eosinophils (test code = 9.4 See_Comment [A utomated message] The Eosinophils) system which ge nerated this result tra nsmitted reference range : <=4.0. The reference r leo was not used to int erpret this result as normal/abnormal . [facility] HospitalJbxqrxvERWSWNYFTY3869-34-92 10:22:00 Test Item Value Reference Range Interpretation Comments Segs-Bands # (test code = Segs-Bands #) 2.6 1.5-8.1 [facility] HospitalWgcekvpPNCZPBNCDW8645-31-16 10:22:00 Test Item Value Reference Range Interpretation Comments Lymphocytes # (test code = Lymphocytes 1.9 1.0-5.5 #) [facility] HospitalQoyvmckPYSZHPRLPK0997-26-35 10:22:00 Test Item Value Reference Range Interpretation Comments Basophils (test code = 1.1 See_Comment [Aut omated message] The Basophils) system which ge nerated this result tra nsmitted reference range : <=1.0. The reference r leo was not used to int erpret this result as normal/abnormal . [facility] HospitalGdzqrenBVYZKIYFSD8828-40-85 10:22:00 Test Item Value Reference Range Interpretation Comments Monocytes # (test code 0.5 See_Comment [Aut omated message] The = Monocytes #) system which generated this result tra nsmitted reference range : <=0.8. The reference r leo was not used to int erpret this result as normal/abnormal . [facility] ResourcesCARD[facility] GAQENBG6854-80-96 10:22:00 Test Item Value Reference Range Interpretation Comments BNP (test code = BNP) 526 [facility] FRXXW2782-63-19 10:22:00 Test Item Value Reference Range Interpretation Comments Magnesium Lvl (test code = Magnesium 2.1 1.8-2.4 Lvl) [facility]2016-12-26 10:22:00 Test Item Value Reference Range Interpretation Comments Glucose Lvl (test code = Glucose Lvl) 117 70-99 [facility]2016-12-26 10:22:00 Test Item Value Reference Range Interpretation Comments BUN (test code = BUN) 41 7-22 [facility]2016-12-26 10:22:00 Test Item Value Reference Range Interpretation Comments Creatinine Lvl (test code = Creatinine 2.00 0.50-1.40 Lvl) [facility]2016-12-26 10:22:00 Test Item Value Reference Range Interpretation Comments Calcium Lvl (test code = Calcium Lvl) 9.0 8.5-10.5 [facility]2016-12-26 10:22:00 Test Item Value Reference Range Interpretation Comments Chloride Lvl (test code = Chloride Lvl) 102 95-109 [facility]2016-12-26 10:22:00 Test Item Value Reference Range Interpretation Comments CO2 (test code = CO2) 33 24-32 [facility]2016-12-26 10:22:00 Test Item Value Reference Range Interpretation Comments Sodium Lvl (test code = Sodium Lvl) 144 135-145 [facility]2016-12-26 10:22:00 Test Item Value Reference Range Interpretation Comments Potassium Lvl (test code = Potassium 4.0 3.5-5.1 Lvl) [facility]2016-12-26 10:22:00 Test Item Value Reference Range Interpretation Comments eGFR (test code = eGFR) 32 [place] 944666-12-26 10:22:00 Test Item Value Reference Range Interpretation Comments AGAP (test code = AGAP) 13.0 10.0-20.0 [facility]2016-12-26 10:22:00 Test Item Value Reference Range Interpretation Comments Phosphorus (test code = Phosphorus) 4.6 2.5-4.5 [facility] HospitalUyybmulWIMWMTBJAP4659-49-32 10:22:00 Test Item Value Reference Range Interpretation Comments RBC (test code = RBC) 3.68 4.20-5.40 [facility] HospitalAxmazjyXXRSEIOOIL1114-04-55 10:22:00 Test Item Value Reference Range Interpretation Comments Hgb (test code = Hgb) 9.9 12.0-16.0 [facility] HospitalYwtuihfYVYRHXLQSO0726-35-54 10:22:00 Test Item Value Reference Range Interpretation Comments MCH (test code = MCH) 26.8 pg 27.0-31.0 [facility] HospitalNksmjonTPOXGUFBAM6614-47-43 10:22:00 Test Item Value Reference Range Interpretation Comments MCHC (test code = MCHC) 34.2 32.0-36.0 [facility] HospitalSguofibCOZMJLVHVE7454-24-07 10:22:00 Test Item Value Reference Range Interpretation Comments MCV (test code = MCV) 78.3 80.0-98.0 [facility] HospitalGqmvsoqPELKSZYWEY3004-45-13 10:22:00 Test Item Value Reference Range Interpretation Comments Hct (test code = Hct) 28.8 36.0-48.0 [facility] HospitalEdlfsruKMAHNXULMZ1204-84-69 10:22:00 Test Item Value Reference Range Interpretation Comments Platelet (test code = Platelet) 191 133-450 [facility] HospitalBmijvsmVYWIHRXXIR5928-17-59 10:22:00 Test Item Value Reference Range Interpretation Comments MPV (test code = MPV) 9.5 7.4-10.4 [facility] HospitalVvzbnsqNIDKDFWMBV5337-45-29 10:22:00 Test Item Value Reference Range Interpretation Comments RDW (test code = RDW) 15.3 11.5-14.5 [facility] HospitalCgfeintJZRYVCGOFX3108-93-81 10:22:00 Test Item Value Reference Range Interpretation Comments WBC (test code = WBC) 5.6 3.7-10.4 [facility] HospitalQooasooHMAFNIQTIX2285-98-56 10:22:00 Test Item Value Reference Range Interpretation Comments Eosinophils # (test code 0.5 See_Comment [A utomated message] The = Eosinophils #) system whic h generated this result tra nsmitted reference range : <=0.5. The reference r leo was not used to int erpret this result as normal/abnormal . [facility] HospitalSujslhvENIPKSEJIM7621-97-29 10:22:00 Test Item Value Reference Range Interpretation Comments Microcyte (test code = 1+ *ABN*(06/15/16 Microcyte) 4:22 AM) [facility] HospitalDvtcrzqFXAQVNHYOE1992-89-96 10:22:00 Test Item Value Reference Range Interpretation Comments Basophils # (test code 0.1 See_Comment [Aut omated message] The = Basophils #) system which generated this result tra nsmitted reference range : <=0.2. The reference r leo was not used to int erpret this result as normal/abnormal . [facility] HospitalNoctrogUZQCDCNCLV3660-15-99 10:22:00 Test Item Value Reference Range Interpretation Comments Lymphocytes (test code = Lymphocytes) 33.5 20.0-40.0 [facility] HospitalFfkjquxTGRIWBKJPF7108-61-76 10:22:00 Test Item Value Reference Range Interpretation Comments Segs (test code = Segs) 47.6 45.0-75.0 [facility] HospitalYadxgdgUTINWKCDMH3634-57-24 10:22:00 Test Item Value Reference Range Interpretation Comments Monocytes (test code = Monocytes) 8.4 2.0-12.0 [facility] HospitalDocbzryNSJSIHJWGM9971-63-72 10:22:00 Test Item Value Reference Range Interpretation Comments Eosinophils (test code = 9.4 See_Comment [A utomated message] The Eosinophils) system which ge nerated this result tra nsmitted reference range : <=4.0. The reference r leo was not used to int erpret this result as normal/abnormal . [facility] HospitalEzohhluAPDUDNVZQO7064-09-21 10:22:00 Test Item Value Reference Range Interpretation Comments Segs-Bands # (test code = Segs-Bands #) 2.6 1.5-8.1 [facility] HospitalImpyenhFRFMAAEQZF4365-03-71 10:22:00 Test Item Value Reference Range Interpretation Comments Lymphocytes # (test code = Lymphocytes 1.9 1.0-5.5 #) [facility] HospitalVaipeyqJQNNPPVTWZ5405-57-41 10:22:00 Test Item Value Reference Range Interpretation Comments Basophils (test code = 1.1 See_Comment [Aut omated message] The Basophils) system which ge nerated this result tra nsmitted reference range : <=1.0. The reference r leo was not used to int erpret this result as normal/abnormal . [facility] ResourcesPfpjxdkLEBVUYLYJN3004-77-26 10:22:00 Test Item Value Reference Range Interpretation Comments Monocytes # (test code 0.5 See_Comment [Aut omated message] The = Monocytes #) system which generated this result tra nsmitted reference range : <=0.8. The reference r leo was not used to int erpret this result as normal/abnormal . [facility] ResourcesCARDIAC PCWSUGZ2589-51-26 10:22:00 Test Item Value Reference Range Interpretation Comments BNP (test code = BNP) 526 [facility]2016-12-26 10:22:00 Test Item Value Reference Range Interpretation Comments Magnesium Lvl (test code = Magnesium 2.1 1.8-2.4 Lvl) [facility]2016-12-26 10:22:00 Test Item Value Reference Range Interpretation Comments Glucose Lvl (test code = Glucose Lvl) 117 70-99 [facility]2016-12-26 10:22:00 Test Item Value Reference Range Interpretation Comments BUN (test code = BUN) 41 7-22 [facility]2016-12-26 10:22:00 Test Item Value Reference Range Interpretation Comments Creatinine Lvl (test code = Creatinine 2.00 0.50-1.40 Lvl) [facility] ResourcesMachine [employer]ception [employer] [id number] 10:22:00 Test Item Value Reference Range Interpretation Comments Calcium Lvl (test code = Calcium Lvl) 9.0 8.5-10.5 [facility]2016-12-26 10:22:00 Test Item Value Reference Range Interpretation Comments Chloride Lvl (test code = Chloride Lvl) 102 95-109 [facility] KNDUJ0499-76-06 10:22:00 Test Item Value Reference Range Interpretation Comments CO2 (test code = CO2) 33 24-32 [facility] Resources[facility] [employer] [employer] [id number] 10:22:00 Test Item Value Reference Range Interpretation Comments Sodium Lvl (test code = Sodium Lvl) 144 135-145 [facility]2016-12-26 10:22:00 Test Item Value Reference Range Interpretation Comments Potassium Lvl (test code = Potassium 4.0 3.5-5.1 Lvl) [facility]2016-12-26 10:22:00 Test Item Value Reference Range Interpretation Comments eGFR (test code = eGFR) 32 [facility]2016-12-26 10:22:00 Test Item Value Reference Range Interpretation Comments AGAP (test code = AGAP) 13.0 10.0-20.0 [facility]2016-12-26 10:22:00 Test Item Value Reference Range Interpretation Comments Phosphorus (test code = Phosphorus) 4.6 2.5-4.5 [facility] HospitalPprufayGKPVUZVGDT6818-73-42 10:22:00 Test Item Value Reference Range Interpretation Comments RBC (test code = RBC) 3.68 4.20-5.40 [facility] HospitalUcmxaxjKHZCOGYISK9636-86-53 10:22:00 Test Item Value Reference Range Interpretation Comments Hgb (test code = Hgb) 9.9 12.0-16.0 [place] 176596-12-26 10:22:00 Test Item Value Reference Range Interpretation Comments MCH (test code = MCH) 26.8 pg 27.0-31.0 [facility] HospitalPsgdgpoSMXWBFDOPB5135-37-94 10:22:00 Test Item Value Reference Range Interpretation Comments MCHC (test code = MCHC) 34.2 32.0-36.0 [facility] HospitalCapsjtxWMKKCMTDBM1184-60-41 10:22:00 Test Item Value Reference Range Interpretation Comments MCV (test code = MCV) 78.3 80.0-98.0 [facility] HospitalRbbkzmgTXGYCCHGAZ5887-84-23 10:22:00 Test Item Value Reference Range Interpretation Comments Hct (test code = Hct) 28.8 36.0-48.0 [place] 176596-12-26 10:22:00 Test Item Value Reference Range Interpretation Comments Platelet (test code = Platelet) 191 133-450 [facility] HospitalQvyieojHXDQRAGNYM3590-10-00 10:22:00 Test Item Value Reference Range Interpretation Comments MPV (test code = MPV) 9.5 7.4-10.4 [facility] HospitalSxinbllAKXJUMGIVO9715-40-44 10:22:00 Test Item Value Reference Range Interpretation Comments RDW (test code = RDW) 15.3 11.5-14.5 [facility] HospitalLeoyjltAVRBLPTQTU7796-84-73 10:22:00 Test Item Value Reference Range Interpretation Comments WBC (test code = WBC) 5.6 3.7-10.4 [facility] HospitalLbiaudpUTJYUKVUNI5563-09-14 10:22:00 Test Item Value Reference Range Interpretation Comments Eosinophils # (test code 0.5 See_Comment [A utomated message] The = Eosinophils #) system whic h generated this result tra nsmitted reference range : <=0.5. The reference r leo was not used to int erpret this result as normal/abnormal . [facility] HospitalMoribeiJXYYMVKCJH4491-51-98 10:22:00 Test Item Value Reference Range Interpretation Comments Microcyte (test code = 1+ *ABN*(06/15/16 Microcyte) 4:22 AM) [facility] HospitalQmrvbfrWGGKWPWRZJ7416-31-54 10:22:00 Test Item Value Reference Range Interpretation Comments Basophils # (test code 0.1 See_Comment [Aut omated message] The = Basophils #) system which generated this result tra nsmitted reference range : <=0.2. The reference r leo was not used to int erpret this result as normal/abnormal . [facility] HospitalUltazkpONKRKXBPPL7969-71-92 10:22:00 Test Item Value Reference Range Interpretation Comments Lymphocytes (test code = Lymphocytes) 33.5 20.0-40.0 [facility] HospitalLbfprzaBEVGGQQWXW0843-78-20 10:22:00 Test Item Value Reference Range Interpretation Comments Segs (test code = Segs) 47.6 45.0-75.0 [facility] HospitalDozdrehNBRCADMQVJ4396-64-80 10:22:00 Test Item Value Reference Range Interpretation Comments Monocytes (test code = Monocytes) 8.4 2.0-12.0 [facility] HospitalFqpsmzuFIWVJHRITA9506-45-11 10:22:00 Test Item Value Reference Range Interpretation Comments Eosinophils (test code = 9.4 See_Comment [A utomated message] The Eosinophils) system which ge nerated this result tra nsmitted reference range : <=4.0. The reference r leo was not used to int erpret this result as normal/abnormal . [facility] HospitalMyqfawxLKFTOCPHCI9618-72-58 10:22:00 Test Item Value Reference Range Interpretation Comments Segs-Bands # (test code = Segs-Bands #) 2.6 1.5-8.1 [facility] HospitalKnfpncdZTURVRGYUN8432-79-11 10:22:00 Test Item Value Reference Range Interpretation Comments Lymphocytes # (test code = Lymphocytes 1.9 1.0-5.5 #) [facility] HospitalYtpnzjhSHWOZWOJPR4781-07-59 10:22:00 Test Item Value Reference Range Interpretation Comments Basophils (test code = 1.1 See_Comment [Aut omated message] The Basophils) system which ge nerated this result tra nsmitted reference range : <=1.0. The reference r leo was not used to int erpret this result as normal/abnormal . [facility] HospitalNcntqdlSHEDCBFFDU8663-62-08 10:22:00 Test Item Value Reference Range Interpretation Comments Monocytes # (test code 0.5 See_Comment [Aut omated message] The = Monocytes #) system which generated this result tra nsmitted reference range : <=0.8. The reference r leo was not used to int erpret this result as normal/abnormal . [facility]2016-12-25 11:03:00 Test Item Value Reference Range Interpretation Comments Phosphorus (test code = Phosphorus) 4.8 2.5-4.5 [facility]2016-12-25 11:03:00 Test Item Value Reference Range Interpretation Comments Magnesium Lvl (test code = Magnesium 2.0 1.8-2.4 Lvl) [facility]2016-12-25 11:03:00 Test Item Value Reference Range Interpretation Comments eGFR (test code = eGFR) 32 [facility]2016-12-25 11:03:00 Test Item Value Reference Range Interpretation Comments Chloride Lvl (test code = Chloride Lvl) 101 95-109 [facility]2016-12-25 11:03:00 Test Item Value Reference Range Interpretation Comments Potassium Lvl (test code = Potassium 4.4 3.5-5.1 Lvl) [facility]2016-12-25 11:03:00 Test Item Value Reference Range Interpretation Comments BUN (test code = BUN) 37 7-22 [facility]2016-12-25 11:03:00 Test Item Value Reference Range Interpretation Comments Glucose Lvl (test code = Glucose Lvl) 119 70-99 [place] 944666-12-25 11:03:00 Test Item Value Reference Range Interpretation Comments Creatinine Lvl (test code = Creatinine 2.00 0.50-1.40 Lvl) [facility]2016-12-25 11:03:00 Test Item Value Reference Range Interpretation Comments Sodium Lvl (test code = Sodium Lvl) 142 135-145 [facility]2016-12-25 11:03:00 Test Item Value Reference Range Interpretation Comments Calcium Lvl (test code = Calcium Lvl) 8.7 8.5-10.5 [place] 944666-12-25 11:03:00 Test Item Value Reference Range Interpretation Comments CO2 (test code = CO2) 32 24-32 [facility]2016-12-25 11:03:00 Test Item Value Reference Range Interpretation Comments AGAP (test code = AGAP) 13.4 10.0-20.0 [facility] HospitalFbtlftqYHABBXHIFS1048-04-65 11:03:00 Test Item Value Reference Range Interpretation Comments Eosinophils (test code = 10.3 See_Comment [A utomated message] The Eosinophils) system which ge nerated this result tra nsmitted reference range : <=4.0. The reference r leo was not used to int erpret this result as normal/abnormal . [facility] HospitalLccgmujMJYGBSHTVP7728-49-11 11:03:00 Test Item Value Reference Range Interpretation Comments Basophils # (test code 0.1 See_Comment [Aut omated message] The = Basophils #) system which generated this result tra nsmitted reference range : <=0.2. The reference r leo was not used to int erpret this result as normal/abnormal . [facility] HospitalKtygowvPPTVCMYCRF7768-69-09 11:03:00 Test Item Value Reference Range Interpretation Comments Eosinophils # (test code 0.5 See_Comment [A utomated message] The = Eosinophils #) system whic h generated this result tra nsmitted reference range : <=0.5. The reference r leo was not used to int erpret this result as normal/abnormal . [place] 176596-12-25 11:03:00 Test Item Value Reference Range Interpretation Comments Monocytes # (test code 0.5 See_Comment [Aut omated message] The = Monocytes #) system which generated this result tra nsmitted reference range : <=0.8. The reference r leo was not used to int erpret this result as normal/abnormal . [facility] HospitalCnpemerJHVKSQKPAH6814-80-59 11:03:00 Test Item Value Reference Range Interpretation Comments Segs-Bands # (test code = Segs-Bands #) 2.1 1.5-8.1 [facility] HospitalPkiimydDOZIDBPBDR1542-84-55 11:03:00 Test Item Value Reference Range Interpretation Comments Basophils (test code = 1.2 See_Comment [Aut omated message] The Basophils) system which ge nerated this result tra nsmitted reference range : <=1.0. The reference r leo was not used to int erpret this result as normal/abnormal . [facility] HospitalRgqndviKWIBQCXYCC7170-57-09 11:03:00 Test Item Value Reference Range Interpretation Comments Lymphocytes # (test code = Lymphocytes 1.9 1.0-5.5 #) [facility] HospitalYjfiqtpIRESXKRQMD6023-07-58 11:03:00 Test Item Value Reference Range Interpretation Comments Segs (test code = Segs) 42.5 45.0-75.0 [facility] HospitalBwrvfuwZOVMQXCZVI1581-45-72 11:03:00 Test Item Value Reference Range Interpretation Comments Lymphocytes (test code = Lymphocytes) 37.0 20.0-40.0 [facility] HospitalMxhrouoNUZOOBVFOE9486-46-09 11:03:00 Test Item Value Reference Range Interpretation Comments Monocytes (test code = Monocytes) 9.0 2.0-12.0 [facility] HospitalEhbturzILIATRDGJX3852-60-53 11:03:00 Test Item Value Reference Range Interpretation Comments MPV (test code = MPV) 9.8 7.4-10.4 [facility] HospitalOmfshyyVSNQYXGYMH3010-68-02 11:03:00 Test Item Value Reference Range Interpretation Comments WBC (test code = WBC) 5.0 3.7-10.4 [facility] HospitalFptuiheRFTKBXTRWQ3437-28-15 11:03:00 Test Item Value Reference Range Interpretation Comments RBC (test code = RBC) 3.57 4.20-5.40 [facility] HospitalIffwycxSJAFQCGQRW1625-98-06 11:03:00 Test Item Value Reference Range Interpretation Comments Hgb (test code = Hgb) 9.4 12.0-16.0 [facility] HospitalShsnoksHHDICGPVUJ7187-93-89 11:03:00 Test Item Value Reference Range Interpretation Comments Hct (test code = Hct) 28.5 36.0-48.0 [facility] HospitalQugykhuQVKJIGGLAC8573-50-62 11:03:00 Test Item Value Reference Range Interpretation Comments Platelet (test code = Platelet) 183 133-450 [facility] HospitalQolhfvkDMYZYYNXHO5080-54-57 11:03:00 Test Item Value Reference Range Interpretation Comments MCV (test code = MCV) 79.9 80.0-98.0 [facility] HospitalDocrnuzHLRLXXRWUH5131-53-37 11:03:00 Test Item Value Reference Range Interpretation Comments MCH (test code = MCH) 26.3 pg 27.0-31.0 [facility] HospitalEqeaubyMJHWRYBOQJ9505-78-39 11:03:00 Test Item Value Reference Range Interpretation Comments MCHC (test code = MCHC) 33.0 32.0-36.0 [facility] HospitalPstzandKTKNPMWLVF3498-93-56 11:03:00 Test Item Value Reference Range Interpretation Comments RDW (test code = RDW) 15.9 11.5-14.5 [facility]2016-12-25 11:03:00 Test Item Value Reference Range Interpretation Comments Phosphorus (test code = Phosphorus) 4.8 2.5-4.5 [facility]2016-12-25 11:03:00 Test Item Value Reference Range Interpretation Comments Magnesium Lvl (test code = Magnesium 2.0 1.8-2.4 Lvl) [facility]2016-12-25 11:03:00 Test Item Value Reference Range Interpretation Comments eGFR (test code = eGFR) 32 [facility]2016-12-25 11:03:00 Test Item Value Reference Range Interpretation Comments Chloride Lvl (test code = Chloride Lvl) 101 95-109 [facility]2016-12-25 11:03:00 Test Item Value Reference Range Interpretation Comments Potassium Lvl (test code = Potassium 4.4 3.5-5.1 Lvl) [facility]2016-12-25 11:03:00 Test Item Value Reference Range Interpretation Comments BUN (test code = BUN) 37 7-22 [facility]2016-12-25 11:03:00 Test Item Value Reference Range Interpretation Comments Glucose Lvl (test code = Glucose Lvl) 119 70-99 [facility]2016-12-25 11:03:00 Test Item Value Reference Range Interpretation Comments Creatinine Lvl (test code = Creatinine 2.00 0.50-1.40 Lvl) [facility]2016-12-25 11:03:00 Test Item Value Reference Range Interpretation Comments Sodium Lvl (test code = Sodium Lvl) 142 135-145 [facility]2016-12-25 11:03:00 Test Item Value Reference Range Interpretation Comments Calcium Lvl (test code = Calcium Lvl) 8.7 8.5-10.5 [facility]2016-12-25 11:03:00 Test Item Value Reference Range Interpretation Comments CO2 (test code = CO2) 32 24-32 [facility]2016-12-25 11:03:00 Test Item Value Reference Range Interpretation Comments AGAP (test code = AGAP) 13.4 10.0-20.0 [place] 176596-12-25 11:03:00 Test Item Value Reference Range Interpretation Comments Eosinophils (test code = 10.3 See_Comment [A utomated message] The Eosinophils) system which ge nerated this result tra nsmitted reference range : <=4.0. The reference r leo was not used to int erpret this result as normal/abnormal . [facility] HospitalNbeisphTCTPQGDMWI5660-39-47 11:03:00 Test Item Value Reference Range Interpretation Comments Basophils # (test code 0.1 See_Comment [Aut omated message] The = Basophils #) system which generated this result tra nsmitted reference range : <=0.2. The reference r leo was not used to int erpret this result as normal/abnormal . [place] 176596-12-25 11:03:00 Test Item Value Reference Range Interpretation Comments Eosinophils # (test code 0.5 See_Comment [A utomated message] The = Eosinophils #) system whic h generated this result tra nsmitted reference range : <=0.5. The reference r leo was not used to int erpret this result as normal/abnormal . [place] 176596-12-25 11:03:00 Test Item Value Reference Range Interpretation Comments Monocytes # (test code 0.5 See_Comment [Aut omated message] The = Monocytes #) system which generated this result tra nsmitted reference range : <=0.8. The reference r leo was not used to int erpret this result as normal/abnormal . [facility] HospitalQqygwrtACUGFHPHOR7243-17-00 11:03:00 Test Item Value Reference Range Interpretation Comments Segs-Bands # (test code = Segs-Bands #) 2.1 1.5-8.1 [facility] HospitalXvppfeuZPDUVRWPXB2460-34-52 11:03:00 Test Item Value Reference Range Interpretation Comments Basophils (test code = 1.2 See_Comment [Aut omated message] The Basophils) system which ge nerated this result tra nsmitted reference range : <=1.0. The reference r leo was not used to int erpret this result as normal/abnormal . [facility] HospitalBbseifgWMVRXHLFRE0303-00-78 11:03:00 Test Item Value Reference Range Interpretation Comments Lymphocytes # (test code = Lymphocytes 1.9 1.0-5.5 #) [facility] HospitalZglkzwrLKPKJXFBWS0220-39-85 11:03:00 Test Item Value Reference Range Interpretation Comments Segs (test code = Segs) 42.5 45.0-75.0 [facility] HospitalYooszqqZVEFSUGNBD4754-07-03 11:03:00 Test Item Value Reference Range Interpretation Comments Lymphocytes (test code = Lymphocytes) 37.0 20.0-40.0 [facility] HospitalRxxtuqdXHAIPEMFSP8045-16-40 11:03:00 Test Item Value Reference Range Interpretation Comments Monocytes (test code = Monocytes) 9.0 2.0-12.0 [facility] HospitalQdousjoMYMMJWMGLK7310-08-98 11:03:00 Test Item Value Reference Range Interpretation Comments MPV (test code = MPV) 9.8 7.4-10.4 [facility] HospitalPrapqavRXOSIOTAIZ7020-79-46 11:03:00 Test Item Value Reference Range Interpretation Comments WBC (test code = WBC) 5.0 3.7-10.4 [facility] HospitalYffzocqLPBUUINOIH5412-43-91 11:03:00 Test Item Value Reference Range Interpretation Comments RBC (test code = RBC) 3.57 4.20-5.40 [facility] HospitalNyeozhgYGJCDNYLKP3254-76-79 11:03:00 Test Item Value Reference Range Interpretation Comments Hgb (test code = Hgb) 9.4 12.0-16.0 [facility] HospitalXiretgxPPWMHYCMUT7848-51-50 11:03:00 Test Item Value Reference Range Interpretation Comments Hct (test code = Hct) 28.5 36.0-48.0 [facility] HospitalHmsclieHHOUANZDCQ5487-33-86 11:03:00 Test Item Value Reference Range Interpretation Comments Platelet (test code = Platelet) 183 133-450 [facility] HospitalOoqvoqxPDLYWISBKK1263-79-43 11:03:00 Test Item Value Reference Range Interpretation Comments MCV (test code = MCV) 79.9 80.0-98.0 [facility] HospitalVsydzdpTEMQWRUICT3819-94-21 11:03:00 Test Item Value Reference Range Interpretation Comments MCH (test code = MCH) 26.3 pg 27.0-31.0 [facility] HospitalDhnqsbjIOCUOKSICH9999-52-03 11:03:00 Test Item Value Reference Range Interpretation Comments MCHC (test code = MCHC) 33.0 32.0-36.0 [facility] HospitalHjiugskFFDGRBQRCU5291-84-60 11:03:00 Test Item Value Reference Range Interpretation Comments RDW (test code = RDW) 15.9 11.5-14.5 [facility]2016-12-25 11:03:00 Test Item Value Reference Range Interpretation Comments Phosphorus (test code = Phosphorus) 4.8 2.5-4.5 [facility]2016-12-25 11:03:00 Test Item Value Reference Range Interpretation Comments Magnesium Lvl (test code = Magnesium 2.0 1.8-2.4 Lvl) [facility]2016-12-25 11:03:00 Test Item Value Reference Range Interpretation Comments eGFR (test code = eGFR) 32 [facility]2016-12-25 11:03:00 Test Item Value Reference Range Interpretation Comments Chloride Lvl (test code = Chloride Lvl) 101 95-109 [facility]2016-12-25 11:03:00 Test Item Value Reference Range Interpretation Comments Potassium Lvl (test code = Potassium 4.4 3.5-5.1 Lvl) [facility]2016-12-25 11:03:00 Test Item Value Reference Range Interpretation Comments BUN (test code = BUN) 37 7-22 [facility]2016-12-25 11:03:00 Test Item Value Reference Range Interpretation Comments Glucose Lvl (test code = Glucose Lvl) 119 70-99 [facility]2016-12-25 11:03:00 Test Item Value Reference Range Interpretation Comments Creatinine Lvl (test code = Creatinine 2.00 0.50-1.40 Lvl) [facility]2016-12-25 11:03:00 Test Item Value Reference Range Interpretation Comments Sodium Lvl (test code = Sodium Lvl) 142 135-145 [facility]2016-12-25 11:03:00 Test Item Value Reference Range Interpretation Comments Calcium Lvl (test code = Calcium Lvl) 8.7 8.5-10.5 [facility]2016-12-25 11:03:00 Test Item Value Reference Range Interpretation Comments CO2 (test code = CO2) 32 24-32 [facility]2016-12-25 11:03:00 Test Item Value Reference Range Interpretation Comments AGAP (test code = AGAP) 13.4 10.0-20.0 [place] 176596-12-25 11:03:00 Test Item Value Reference Range Interpretation Comments Eosinophils (test code = 10.3 See_Comment [A utomated message] The Eosinophils) system which ge nerated this result tra nsmitted reference range : <=4.0. The reference r leo was not used to int erpret this result as normal/abnormal . [facility] HospitalXpxnmqlPTSNTPXLFC9153-88-63 11:03:00 Test Item Value Reference Range Interpretation Comments Basophils # (test code 0.1 See_Comment [Aut omated message] The = Basophils #) system which generated this result tra nsmitted reference range : <=0.2. The reference r leo was not used to int erpret this result as normal/abnormal . [facility] HospitalBdeduioVCWEFWSMFL0927-95-39 11:03:00 Test Item Value Reference Range Interpretation Comments Eosinophils # (test code 0.5 See_Comment [A utomated message] The = Eosinophils #) system whic h generated this result tra nsmitted reference range : <=0.5. The reference r leo was not used to int erpret this result as normal/abnormal . [facility] HospitalHtqyxcwVLFPQFNHLJ9201-25-13 11:03:00 Test Item Value Reference Range Interpretation Comments Monocytes # (test code 0.5 See_Comment [Aut omated message] The = Monocytes #) system which generated this result tra nsmitted reference range : <=0.8. The reference r leo was not used to int erpret this result as normal/abnormal . [facility] HospitalGiapmyyNJYCPIVVGW2356-01-53 11:03:00 Test Item Value Reference Range Interpretation Comments Segs-Bands # (test code = Segs-Bands #) 2.1 1.5-8.1 [facility] HospitalQioucmdXWREHVAXLU4096-88-52 11:03:00 Test Item Value Reference Range Interpretation Comments Basophils (test code = 1.2 See_Comment [Aut omated message] The Basophils) system which ge nerated this result tra nsmitted reference range : <=1.0. The reference r leo was not used to int erpret this result as normal/abnormal . [facility] HospitalZqtecwfENAXJRKWHD3670-42-15 11:03:00 Test Item Value Reference Range Interpretation Comments Lymphocytes # (test code = Lymphocytes 1.9 1.0-5.5 #) [facility]HbviguqXHMBMQLTUR3091-34-20 11:03:00 Test Item Value Reference Range Interpretation Comments Segs (test code = Segs) 42.5 45.0-75.0 [facility] HospitalRokgysiJPSGNDHBLF3689-55-87 11:03:00 Test Item Value Reference Range Interpretation Comments Lymphocytes (test code = Lymphocytes) 37.0 20.0-40.0 [facility] HospitalCzpssnzPRTAFPADIB9666-53-58 11:03:00 Test Item Value Reference Range Interpretation Comments Monocytes (test code = Monocytes) 9.0 2.0-12.0 [facility] HospitalBuvaymkSRBGJZDJOZ6786-87-58 11:03:00 Test Item Value Reference Range Interpretation Comments MPV (test code = MPV) 9.8 7.4-10.4 [facility] HospitalNeuwwupUOMWUZDNLO7758-64-46 11:03:00 Test Item Value Reference Range Interpretation Comments WBC (test code = WBC) 5.0 3.7-10.4 [facility] HospitalZpmxfkvFABREOJYPN2188-51-96 11:03:00 Test Item Value Reference Range Interpretation Comments RBC (test code = RBC) 3.57 4.20-5.40 [facility] HospitalZfudppcBADNFALZAU0246-34-62 11:03:00 Test Item Value Reference Range Interpretation Comments Hgb (test code = Hgb) 9.4 12.0-16.0 [facility] HospitalYxzorvbRKHKULPZPK3470-59-11 11:03:00 Test Item Value Reference Range Interpretation Comments Hct (test code = Hct) 28.5 36.0-48.0 [facility] HospitalFhwytelSVZUWQLSKD4559-49-18 11:03:00 Test Item Value Reference Range Interpretation Comments Platelet (test code = Platelet) 183 133-450 [facility] HospitalHrcruyjVPMZCHLTMF8480-84-74 11:03:00 Test Item Value Reference Range Interpretation Comments MCV (test code = MCV) 79.9 80.0-98.0 [facility] HospitalOtvldybAKPRGHHIGO2370-51-04 11:03:00 Test Item Value Reference Range Interpretation Comments MCH (test code = MCH) 26.3 pg 27.0-31.0 [facility] HospitalEkmyfioHAEAPSBOVX6041-43-19 11:03:00 Test Item Value Reference Range Interpretation Comments MCHC (test code = MCHC) 33.0 32.0-36.0 [facility] HospitalAoeqbftYILPGCEKNV4206-91-76 11:03:00 Test Item Value Reference Range Interpretation Comments RDW (test code = RDW) 15.9 11.5-14.5 [facility]2016-12-25 11:03:00 Test Item Value Reference Range Interpretation Comments Phosphorus (test code = Phosphorus) 4.8 2.5-4.5 [facility]2016-12-25 11:03:00 Test Item Value Reference Range Interpretation Comments Magnesium Lvl (test code = Magnesium 2.0 1.8-2.4 Lvl) [facility]2016-12-25 11:03:00 Test Item Value Reference Range Interpretation Comments eGFR (test code = eGFR) 32 [facility]2016-12-25 11:03:00 Test Item Value Reference Range Interpretation Comments Chloride Lvl (test code = Chloride Lvl) 101 95-109 [facility]2016-12-25 11:03:00 Test Item Value Reference Range Interpretation Comments Potassium Lvl (test code = Potassium 4.4 3.5-5.1 Lvl) [facility]2016-12-25 11:03:00 Test Item Value Reference Range Interpretation Comments BUN (test code = BUN) 37 7-22 [facility]2016-12-25 11:03:00 Test Item Value Reference Range Interpretation Comments Glucose Lvl (test code = Glucose Lvl) 119 70-99 [facility]2016-12-25 11:03:00 Test Item Value Reference Range Interpretation Comments Creatinine Lvl (test code = Creatinine 2.00 0.50-1.40 Lvl) [facility]2016-12-25 11:03:00 Test Item Value Reference Range Interpretation Comments Sodium Lvl (test code = Sodium Lvl) 142 135-145 [facility]2016-12-25 11:03:00 Test Item Value Reference Range Interpretation Comments Calcium Lvl (test code = Calcium Lvl) 8.7 8.5-10.5 [facility]2016-12-25 11:03:00 Test Item Value Reference Range Interpretation Comments CO2 (test code = CO2) 32 24-32 [facility]2016-12-25 11:03:00 Test Item Value Reference Range Interpretation Comments AGAP (test code = AGAP) 13.4 10.0-20.0 [facility] HospitalWcohvakGJFLLKSIAU4602-27-85 11:03:00 Test Item Value Reference Range Interpretation Comments Eosinophils (test code = 10.3 See_Comment [A utomated message] The Eosinophils) system which ge nerated this result tra nsmitted reference range : <=4.0. The reference r leo was not used to int erpret this result as normal/abnormal . [facility] HospitalZlhubuxAZGIWHHTDJ3704-36-40 11:03:00 Test Item Value Reference Range Interpretation Comments Basophils # (test code 0.1 See_Comment [Aut omated message] The = Basophils #) system which generated this result tra nsmitted reference range : <=0.2. The reference r leo was not used to int erpret this result as normal/abnormal . [facility] HospitalVynnrdmXHIIPYYURZ4250-46-62 11:03:00 Test Item Value Reference Range Interpretation Comments Eosinophils # (test code 0.5 See_Comment [A utomated message] The = Eosinophils #) system whic h generated this result tra nsmitted reference range : <=0.5. The reference r leo was not used to int erpret this result as normal/abnormal . [facility] HospitalRkcxqriQIVDQSFUHS5523-91-41 11:03:00 Test Item Value Reference Range Interpretation Comments Monocytes # (test code 0.5 See_Comment [Aut omated message] The = Monocytes #) system which generated this result tra nsmitted reference range : <=0.8. The reference r leo was not used to int erpret this result as normal/abnormal . [facility] HospitalElxntxuBPZHUCJGOA6129-68-93 11:03:00 Test Item Value Reference Range Interpretation Comments Segs-Bands # (test code = Segs-Bands #) 2.1 1.5-8.1 [facility] HospitalFyrawnkSFGQOLAIKA9273-89-98 11:03:00 Test Item Value Reference Range Interpretation Comments Basophils (test code = 1.2 See_Comment [Aut omated message] The Basophils) system which ge nerated this result tra nsmitted reference range : <=1.0. The reference r leo was not used to int erpret this result as normal/abnormal . [facility] HospitalPjbznbiAUXRAEEGNR9365-53-96 11:03:00 Test Item Value Reference Range Interpretation Comments Lymphocytes # (test code = Lymphocytes 1.9 1.0-5.5 #) [facility] HospitalNclutjfJXXGCFLSKB5876-65-09 11:03:00 Test Item Value Reference Range Interpretation Comments Segs (test code = Segs) 42.5 45.0-75.0 [facility] HospitalZvfwcscDCNJRJKVGR3437-12-30 11:03:00 Test Item Value Reference Range Interpretation Comments Lymphocytes (test code = Lymphocytes) 37.0 20.0-40.0 [facility] HospitalQyuiclpRLOBMWKLHB8641-74-68 11:03:00 Test Item Value Reference Range Interpretation Comments Monocytes (test code = Monocytes) 9.0 2.0-12.0 [facility] HospitalByvwixoDVPMIAYHKN2893-68-77 11:03:00 Test Item Value Reference Range Interpretation Comments MPV (test code = MPV) 9.8 7.4-10.4 [facility] HospitalVykookiPSDECYRKZM5771-45-62 11:03:00 Test Item Value Reference Range Interpretation Comments WBC (test code = WBC) 5.0 3.7-10.4 [facility] HospitalMpnqfwaQGMVLYXQDZ7860-29-12 11:03:00 Test Item Value Reference Range Interpretation Comments RBC (test code = RBC) 3.57 4.20-5.40 [facility] HospitalQifgrquTDNZHBZRBP4344-83-82 11:03:00 Test Item Value Reference Range Interpretation Comments Hgb (test code = Hgb) 9.4 12.0-16.0 [facility] HospitalNhvlaptMAQHLSYCHQ1207-03-94 11:03:00 Test Item Value Reference Range Interpretation Comments Hct (test code = Hct) 28.5 36.0-48.0 [facility] HospitalXbwmehyZDZJCVTEUG2418-97-05 11:03:00 Test Item Value Reference Range Interpretation Comments Platelet (test code = Platelet) 183 133-450 [facility] HospitalVixufkcZSIRZDHSYQ9980-23-21 11:03:00 Test Item Value Reference Range Interpretation Comments MCV (test code = MCV) 79.9 80.0-98.0 [facility] HospitalSsgalqmOVPQXWEBOI7347-21-21 11:03:00 Test Item Value Reference Range Interpretation Comments MCH (test code = MCH) 26.3 pg 27.0-31.0 [facility] HospitalHcnyqxaAQOQYNZYGP5528-93-08 11:03:00 Test Item Value Reference Range Interpretation Comments MCHC (test code = MCHC) 33.0 32.0-36.0 [facility] HospitalEmpfszfGSFEHYNQCI5004-14-86 11:03:00 Test Item Value Reference Range Interpretation Comments RDW (test code = RDW) 15.9 11.5-14.5 [facility]2016-12-25 11:03:00 Test Item Value Reference Range Interpretation Comments Phosphorus (test code = Phosphorus) 4.8 2.5-4.5 [facility]2016-12-25 11:03:00 Test Item Value Reference Range Interpretation Comments Magnesium Lvl (test code = Magnesium 2.0 1.8-2.4 Lvl) [facility]2016-12-25 11:03:00 Test Item Value Reference Range Interpretation Comments eGFR (test code = eGFR) 32 [facility]2016-12-25 11:03:00 Test Item Value Reference Range Interpretation Comments Chloride Lvl (test code = Chloride Lvl) 101 95-109 [facility]2016-12-25 11:03:00 Test Item Value Reference Range Interpretation Comments Potassium Lvl (test code = Potassium 4.4 3.5-5.1 Lvl) [facility]2016-12-25 11:03:00 Test Item Value Reference Range Interpretation Comments BUN (test code = BUN) 37 7-22 [facility]2016-12-25 11:03:00 Test Item Value Reference Range Interpretation Comments Glucose Lvl (test code = Glucose Lvl) 119 70-99 [facility]2016-12-25 11:03:00 Test Item Value Reference Range Interpretation Comments Creatinine Lvl (test code = Creatinine 2.00 0.50-1.40 Lvl) [facility]2016-12-25 11:03:00 Test Item Value Reference Range Interpretation Comments Sodium Lvl (test code = Sodium Lvl) 142 135-145 [facility]2016-12-25 11:03:00 Test Item Value Reference Range Interpretation Comments Calcium Lvl (test code = Calcium Lvl) 8.7 8.5-10.5 [facility]2016-12-25 11:03:00 Test Item Value Reference Range Interpretation Comments CO2 (test code = CO2) 32 24-32 [facility]2016-12-25 11:03:00 Test Item Value Reference Range Interpretation Comments AGAP (test code = AGAP) 13.4 10.0-20.0 [facility] HospitalBhktbflNJKVTQIOIK4114-55-09 11:03:00 Test Item Value Reference Range Interpretation Comments Eosinophils (test code = 10.3 See_Comment [A utomated message] The Eosinophils) system which ge nerated this result tra nsmitted reference range : <=4.0. The reference r leo was not used to int erpret this result as normal/abnormal . [facility] HospitalBuxqvomFZGWZJCIAC3186-40-57 11:03:00 Test Item Value Reference Range Interpretation Comments Basophils # (test code 0.1 See_Comment [Aut omated message] The = Basophils #) system which generated this result tra nsmitted reference range : <=0.2. The reference r leo was not used to int erpret this result as normal/abnormal . [facility] HospitalEwxrwwkVXTTBWXJKM1509-86-65 11:03:00 Test Item Value Reference Range Interpretation Comments Eosinophils # (test code 0.5 See_Comment [A utomated message] The = Eosinophils #) system whic h generated this result tra nsmitted reference range : <=0.5. The reference r leo was not used to int erpret this result as normal/abnormal . [facility] HospitalTtpqzrxNOLWYEEBTG3306-82-28 11:03:00 Test Item Value Reference Range Interpretation Comments Monocytes # (test code 0.5 See_Comment [Aut omated message] The = Monocytes #) system which generated this result tra nsmitted reference range : <=0.8. The reference r leo was not used to int erpret this result as normal/abnormal . [facility] HospitalIutlvtjQWBFZBAFNW5019-42-32 11:03:00 Test Item Value Reference Range Interpretation Comments Segs-Bands # (test code = Segs-Bands #) 2.1 1.5-8.1 [facility] HospitalVvqaoniADLFKVCEAR7145-64-02 11:03:00 Test Item Value Reference Range Interpretation Comments Basophils (test code = 1.2 See_Comment [Aut omated message] The Basophils) system which ge nerated this result tra nsmitted reference range : <=1.0. The reference r leo was not used to int erpret this result as normal/abnormal . [facility] HospitalWtmclgcAMQPLMJYYA9214-61-12 11:03:00 Test Item Value Reference Range Interpretation Comments Lymphocytes # (test code = Lymphocytes 1.9 1.0-5.5 #) [facility] HospitalViwwwkqHVDLDVYIBL1301-61-23 11:03:00 Test Item Value Reference Range Interpretation Comments Segs (test code = Segs) 42.5 45.0-75.0 [facility] HospitalNuzclpsXMGMMEUCDV7295-97-47 11:03:00 Test Item Value Reference Range Interpretation Comments Lymphocytes (test code = Lymphocytes) 37.0 20.0-40.0 [facility] HospitalLhwieopXSJNOJAVWK0646-10-39 11:03:00 Test Item Value Reference Range Interpretation Comments Monocytes (test code = Monocytes) 9.0 2.0-12.0 [facility] HospitalRcekiblPDHJICRDHT3358-71-82 11:03:00 Test Item Value Reference Range Interpretation Comments MPV (test code = MPV) 9.8 7.4-10.4 [facility] HospitalTexkpzeGXKUYYLXVM5565-54-80 11:03:00 Test Item Value Reference Range Interpretation Comments WBC (test code = WBC) 5.0 3.7-10.4 [facility] HospitalKwfpytwTYBWXJUBLJ0528-09-86 11:03:00 Test Item Value Reference Range Interpretation Comments RBC (test code = RBC) 3.57 4.20-5.40 [facility] HospitalJkjwyboOPRPBLRVLY9374-14-63 11:03:00 Test Item Value Reference Range Interpretation Comments Hgb (test code = Hgb) 9.4 12.0-16.0 [facility] HospitalVwhqesoFUBQVIRXHD7130-55-18 11:03:00 Test Item Value Reference Range Interpretation Comments Hct (test code = Hct) 28.5 36.0-48.0 [facility] HospitalTzciewwCMVMLAFBPS0085-62-18 11:03:00 Test Item Value Reference Range Interpretation Comments Platelet (test code = Platelet) 183 133-450 [facility] HospitalNtuduvcMIOGIGTGCP9277-08-30 11:03:00 Test Item Value Reference Range Interpretation Comments MCV (test code = MCV) 79.9 80.0-98.0 [facility] HospitalBdwynnnPKJELOWQAV9892-70-09 11:03:00 Test Item Value Reference Range Interpretation Comments MCH (test code = MCH) 26.3 pg 27.0-31.0 [facility]KSBVRA4937[facility] 11:03:00 Test Item Value Reference Range Interpretation Comments MCHC (test code = MCHC) 33.0 32.0-36.0 [facility] HospitalOihknrxLHMVIPKGSL5274-15-60 11:03:00 Test Item Value Reference Range Interpretation [...] Protein (test code = U Protein) 133.1 [facility]2016-12-24 10:26:00 Test Item Value Reference Range Interpretation Comments U Prot/Creat (test code = U Prot/Creat) 6.9 [facility]2016-12-24 10:26:00 Test Item Value Reference Range Interpretation Comments U Creatinine (test code = U Creatinine) 19.30 [facility]2016-12-24 10:26:00 Test Item Value Reference Range Interpretation Comments U Protein (test code = U Protein) 133.1 [facility]2016-12-24 10:26:00 Test Item Value Reference Range Interpretation Comments U Prot/Creat (test code = U Prot/Creat) 6.9 [facility]2016-12-24 10:26:00 Test Item Value Reference Range Interpretation Comments U Creatinine (test code = U Creatinine) 19.30 [facility]2016-12-24 10:26:00 Test Item Value Reference Range Interpretation Comments U Protein (test code = U Protein) 133.1 [facility]2016-12-24 10:26:00 Test Item Value Reference Range Interpretation Comments U Prot/Creat (test code = U Prot/Creat) 6.9 [facility]2016-12-24 10:26:00 Test Item Value Reference Range Interpretation Comments U Creatinine (test code = U Creatinine) 19.30 [facility]2016-12-24 10:26:00 Test Item Value Reference Range Interpretation Comments U Protein (test code = U Protein) 133.1 [facility]2016-12-24 10:26:00 Test Item Value Reference Range Interpretation Comments U Prot/Creat (test code = U Prot/Creat) 6.9 [facility]2016-12-24 10:26:00 Test Item Value Reference Range Interpretation Comments U Creatinine (test code = U Creatinine) 19.30 [facility]2016-12-24 10:26:00 Test Item Value Reference Range Interpretation Comments U Protein (test code = U Protein) 133.1 [facility]mzrpyvTZDOIPJTHE4854-07-58 09:20:00 Test Item Value Reference Range Interpretation Comments MPV (test code = MPV) 9.7 7.4-10.4 [facility]GgtgdvgYUHNQEQVRB0106-33-03 09:20:00 Test Item Value Reference Range Interpretation Comments Platelet (test code = Platelet) 184 133-450 [facility]TrchvmyERMJPDWTUC9824-16-67 09:20:00 Test Item Value Reference Range Interpretation Comments RDW (test code = RDW) 15.9 11.5-14.5 [facility]BvupzadZWFEWNWXBN9137-32-17 09:20:00 Test Item Value Reference Range Interpretation Comments MCV (test code = MCV) 79.3 80.0-98.0 [facility]FlrbwdmHRFLESMGCT6124-83-70 09:20:00 Test Item Value Reference Range Interpretation Comments MCHC (test code = MCHC) 33.0 32.0-36.0 [facility]BimgauhDCHRUXYGVO7184-72-68 09:20:00 Test Item Value Reference Range Interpretation Comments MCH (test code = MCH) 26.2 pg 27.0-31.0 [place] 176596-12-24 09:20:00 Test Item Value Reference Range Interpretation Comments Hct (test code = Hct) 29.4 36.0-48.0 [facility] HospitalItoyrijXIBGXSUYHT0333-25-37 09:20:00 Test Item Value Reference Range Interpretation Comments Hgb (test code = Hgb) 9.7 12.0-16.0 [place] 176596-12-24 09:20:00 Test Item Value Reference Range Interpretation Comments RBC (test code = RBC) 3.70 4.20-5.40 [place] [address]-12-24 09:20:00 Test Item Value Reference Range Interpretation Comments WBC (test code = WBC) 5.7 3.7-10.4 [place] 176596-12-24 09:20:00 Test Item Value Reference Range Interpretation Comments Basophils # (test code 0.1 See_Comment [Aut omated message] The = Basophils #) system which generated this result tra nsmitted reference range : <=0.2. The reference r leo was not used to int erpret this result as normal/abnormal . [facility] HospitalVksikmtVFYMYHUJXJ7901-27-11 09:20:00 Test Item Value Reference Range Interpretation Comments Lymphocytes # (test code = Lymphocytes 2.2 1.0-5.5 #) [facility] HospitalGrngskrPKAJDPKRIJ7242-60-39 09:20:00 Test Item Value Reference Range Interpretation Comments Eosinophils # (test code 0.5 See_Comment [A utomated message] The = Eosinophils #) system whic h generated this result tra nsmitted reference range : <=0.5. The reference r leo was not used to int erpret this result as normal/abnormal . [facility] HospitalCgqzzugFFCTMQIHQZ7689-18-86 09:20:00 Test Item Value Reference Range Interpretation Comments Monocytes # (test code 0.5 See_Comment [Aut omated message] The = Monocytes #) system which generated this result tra nsmitted reference range : <=0.8. The reference r leo was not used to int erpret this result as normal/abnormal . [place] 176596-12-24 09:20:00 Test Item Value Reference Range Interpretation Comments Basophils (test code = 1.1 See_Comment [Aut omated message] The Basophils) system which ge nerated this result tra nsmitted reference range : <=1.0. The reference r leo was not used to int erpret this result as normal/abnormal . [facility] HospitalEaekpfyVKBTAMIJSK9553-25-62 09:20:00 Test Item Value Reference Range Interpretation Comments Segs-Bands # (test code = Segs-Bands #) 2.3 1.5-8.1 [facility] HospitalYjpupitKQFRSPAHFI6242-19-87 09:20:00 Test Item Value Reference Range Interpretation Comments Eosinophils (test code = 9.5 See_Comment [A utomated message] The Eosinophils) system which ge nerated this result tra nsmitted reference range : <=4.0. The reference r leo was not used to int erpret this result as normal/abnormal . [facility] HospitalAcfwlttHDPFEAKJZY3622-76-56 09:20:00 Test Item Value Reference Range Interpretation Comments Monocytes (test code = Monocytes) 9.0 2.0-12.0 [facility] HospitalCyiyfqzZNHMJTFAMR7824-03-32 09:20:00 Test Item Value Reference Range Interpretation Comments Lymphocytes (test code = Lymphocytes) 38.9 20.0-40.0 [facility] HospitalIxriizwAWSNZTCBLW3674-04-97 09:20:00 Test Item Value Reference Range Interpretation Comments Segs (test code = Segs) 41.5 45.0-75.0 [facility] HospitalMbbczyiCQPQRERKYR6405-46-46 09:20:00 Test Item Value Reference Range Interpretation Comments MPV (test code = MPV) 9.7 7.4-10.4 [facility] HospitalJkyduytGPQVPOXZJE7383-47-07 09:20:00 Test Item Value Reference Range Interpretation Comments Platelet (test code = Platelet) 184 133-450 [facility] HospitalObspxetRUOCWJUNKJ4947-19-42 09:20:00 Test Item Value Reference Range Interpretation Comments RDW (test code = RDW) 15.9 11.5-14.5 [facility] HospitalJvkajfkYUYJDTFWXA2833-60-78 09:20:00 Test Item Value Reference Range Interpretation Comments MCV (test code = MCV) 79.3 80.0-98.0 [facility] HospitalTdkbhkfPZHOGIVUPT2951-29-13 09:20:00 Test Item Value Reference Range Interpretation Comments MCHC (test code = MCHC) 33.0 32.0-36.0 [facility] HospitalRafxduyDLNFCLQKBM9293-48-13 09:20:00 Test Item Value Reference Range Interpretation Comments MCH (test code = MCH) 26.2 pg 27.0-31.0 [facility] HospitalZlcbhmjTKOCIPTNJM8543-43-13 09:20:00 Test Item Value Reference Range Interpretation Comments Hct (test code = Hct) 29.4 36.0-48.0 [facility] HospitalZzbhcqfEWNGWESSJQ6224-17-79 09:20:00 Test Item Value Reference Range Interpretation Comments Hgb (test code = Hgb) 9.7 12.0-16.0 [facility] HospitalFzitevpDGCRHYOTML7868-30-21 09:20:00 Test Item Value Reference Range Interpretation Comments RBC (test code = RBC) 3.70 4.20-5.40 [facility] HospitalYzsxxyuQWDENICMVQ0635-74-65 09:20:00 Test Item Value Reference Range Interpretation Comments WBC (test code = WBC) 5.7 3.7-10.4 [place] 176596-12-24 09:20:00 Test Item Value Reference Range Interpretation Comments Basophils # (test code 0.1 See_Comment [Aut omated message] The = Basophils #) system which generated this result tra nsmitted reference range : <=0.2. The reference r leo was not used to int erpret this result as normal/abnormal . [facility] HospitalPfexqzwHHITBDSKOY9001-17-92 09:20:00 Test Item Value Reference Range Interpretation Comments Lymphocytes # (test code = Lymphocytes 2.2 1.0-5.5 #) [facility] HospitalGoghojuSWNIRBJOSS7848-01-32 09:20:00 Test Item Value Reference Range Interpretation Comments Eosinophils # (test code 0.5 See_Comment [A utomated message] The = Eosinophils #) system whic h generated this result tra nsmitted reference range : <=0.5. The reference r leo was not used to int erpret this result as normal/abnormal . [facility] HospitalYwbtodeBFUSBFRMCP7528-21-34 09:20:00 Test Item Value Reference Range Interpretation Comments Monocytes # (test code 0.5 See_Comment [Aut omated message] The = Monocytes #) system which generated this result tra nsmitted reference range : <=0.8. The reference r leo was not used to int erpret this result as normal/abnormal . [facility] HospitalTjlkspfZBBJWPGOGN0783-22-22 09:20:00 Test Item Value Reference Range Interpretation Comments Basophils (test code = 1.1 See_Comment [Aut omated message] The Basophils) system which ge nerated this result tra nsmitted reference range : <=1.0. The reference r leo was not used to int erpret this result as normal/abnormal . [facility] HospitalHfmrlwlQXHYVTYEZG5064-77-70 09:20:00 Test Item Value Reference Range Interpretation Comments Segs-Bands # (test code = Segs-Bands #) 2.3 1.5-8.1 [facility] HospitalLocafqgWVNRCDCENL6281-59-83 09:20:00 Test Item Value Reference Range Interpretation Comments Eosinophils (test code = 9.5 See_Comment [A utomated message] The Eosinophils) system which ge nerated this result tra nsmitted reference range : <=4.0. The reference r leo was not used to int erpret this result as normal/abnormal . [facility] HospitalOtnelztWOFZYROKSM1299-23-45 09:20:00 Test Item Value Reference Range Interpretation Comments Monocytes (test code = Monocytes) 9.0 2.0-12.0 [facility] HospitalVnwjjlxOWWCRGDTQH5869-45-93 09:20:00 Test Item Value Reference Range Interpretation Comments Lymphocytes (test code = Lymphocytes) 38.9 20.0-40.0 [facility] [facility]IT1714-57-38 09:20:00 Test Item Value Reference Range Interpretation Comments Segs (test code = Segs) 41.5 45.0-75.0 [facility]MxepshjIWGQQLIRUF0387-86-75 09:20:00 Test Item Value Reference Range Interpretation Comments MPV (test code = MPV) 9.7 7.4-10.4 [facility] HospitalIwkwcpvGOUVBMHXRV8380-66-12 09:20:00 Test Item Value Reference Range Interpretation Comments Platelet (test code = Platelet) 184 133-450 [facility] HospitalGukktpeLNPONBXCTH5721-22-71 09:20:00 Test Item Value Reference Range Interpretation Comments RDW (test code = RDW) 15.9 11.5-14.5 [facility] HospitalEipvxseUEDFTPFRXQ2118-48-81 09:20:00 Test Item Value Reference Range Interpretation Comments MCV (test code = MCV) 79.3 80.0-98.0 [facility] HospitalBhmxbkjAXFOTZQXQP7452-57-43 09:20:00 Test Item Value Reference Range Interpretation Comments MCHC (test code = MCHC) 33.0 32.0-36.0 [facility] HospitalNvqzaarOAONUVKZZN0018-15-61 09:20:00 Test Item Value Reference Range Interpretation Comments MCH (test code = MCH) 26.2 pg 27.0-31.0 [facility] HospitalJodyhaxNCOMREVWFW4966-94-32 09:20:00 Test Item Value Reference Range Interpretation Comments Hct (test code = Hct) 29.4 36.0-48.0 [facility] HospitalStvdxyzPXDXEAWCPQ8434-63-71 09:20:00 Test Item Value Reference Range Interpretation Comments Hgb (test code = Hgb) 9.7 12.0-16.0 [facility] HospitalUkikbkeNOBWBKGEGQ0579-30-33 09:20:00 Test Item Value Reference Range Interpretation Comments RBC (test code = RBC) 3.70 4.20-5.40 [facility] HospitalVoxgrfiYNDSHOLCZV2922-53-98 09:20:00 Test Item Value Reference Range Interpretation Comments WBC (test code = WBC) 5.7 3.7-10.4 [facility] HospitalCfvexbfAUTTJRSOXD0798-14-91 09:20:00 Test Item Value Reference Range Interpretation Comments Basophils # (test code 0.1 See_Comment [Aut omated message] The = Basophils #) system which generated this result tra nsmitted reference range : <=0.2. The reference r leo was not used to int erpret this result as normal/abnormal . [facility] HospitalJsurkglNGMXINSZMK1151-82-00 09:20:00 Test Item Value Reference Range Interpretation Comments Lymphocytes # (test code = Lymphocytes 2.2 1.0-5.5 #) [facility] HospitalCnubxoqAPAWYVRQNX6455-21-25 09:20:00 Test Item Value Reference Range Interpretation Comments Eosinophils # (test code 0.5 See_Comment [A utomated message] The = Eosinophils #) system whic h generated this result tra nsmitted reference range : <=0.5. The reference r leo was not used to int erpret this result as normal/abnormal . [facility] HospitalMamimcxTHXDMSXLPY0287-44-07 09:20:00 Test Item Value Reference Range Interpretation Comments Monocytes # (test code 0.5 See_Comment [Aut omated message] The = Monocytes #) system which generated this result tra nsmitted reference range : <=0.8. The reference r leo was not used to int erpret this result as normal/abnormal . [place] 176596-12-24 09:20:00 Test Item Value Reference Range Interpretation Comments Basophils (test code = 1.1 See_Comment [Aut omated message] The Basophils) system which ge nerated this result tra nsmitted reference range : <=1.0. The reference r leo was not used to int erpret this result as normal/abnormal . [facility] HospitalIzqxdyiUVILWEDDWV8318-71-63 09:20:00 Test Item Value Reference Range Interpretation Comments Segs-Bands # (test code = Segs-Bands #) 2.3 1.5-8.1 [facility] HospitalYqjkzwnCLDQGPABIO6853-18-15 09:20:00 Test Item Value Reference Range Interpretation Comments Eosinophils (test code = 9.5 See_Comment [A utomated message] The Eosinophils) system which ge nerated this result tra nsmitted reference range : <=4.0. The reference r leo was not used to int erpret this result as normal/abnormal . [facility] HospitalPapytxfVPFDIAHAXR6731-57-05 09:20:00 Test Item Value Reference Range Interpretation Comments Monocytes (test code = Monocytes) 9.0 2.0-12.0 [facility] HospitalZxgxkvzHYDNLQPTZJ4002-27-12 09:20:00 Test Item Value Reference Range Interpretation Comments Lymphocytes (test code = Lymphocytes) 38.9 20.0-40.0 [facility] HospitalNxpbfqjEOGCHPYWGP7371-83-14 09:20:00 Test Item Value Reference Range Interpretation Comments Segs (test code = Segs) 41.5 45.0-75.0 [facility] HospitalJfkhfkmKWKRYCWODK5283-72-75 09:20:00 Test Item Value Reference Range Interpretation Comments MPV (test code = MPV) 9.7 7.4-10.4 [facility] HospitalUbpwxcvVUSXTAQQVX0015-48-46 09:20:00 Test Item Value Reference Range Interpretation Comments Platelet (test code = Platelet) 184 133-450 [facility] HospitalFofiyuuVBJVZCBOJX9178-58-58 09:20:00 Test Item Value Reference Range Interpretation Comments RDW (test code = RDW) 15.9 11.5-14.5 [facility] HospitalFucqnuvCVKBWXGGDU8754-39-36 09:20:00 Test Item Value Reference Range Interpretation Comments MCV (test code = MCV) 79.3 80.0-98.0 [facility] HospitalSpaervgQEMXOPFEWL7812-04-31 09:20:00 Test Item Value Reference Range Interpretation Comments MCHC (test code = MCHC) 33.0 32.0-36.0 [facility] HospitalAoawpplMKLIEHEGXL7423-01-12 09:20:00 Test Item Value Reference Range Interpretation Comments MCH (test code = MCH) 26.2 pg 27.0-31.0 [facility] HospitalAoeipmcFHCJUZWART5015-89-05 09:20:00 Test Item Value Reference Range Interpretation Comments Hct (test code = Hct) 29.4 36.0-48.0 [facility] HospitalPmdhpijFEEFTDXESA6809-98-66 09:20:00 Test Item Value Reference Range Interpretation Comments Hgb (test code = Hgb) 9.7 12.0-16.0 [facility] HospitalVchamaoKMMVNTKYEH1325-88-46 09:20:00 Test Item Value Reference Range Interpretation Comments RBC (test code = RBC) 3.70 4.20-5.40 [facility] HospitalLliavwrLZOSXYIEEY7067-56-26 09:20:00 Test Item Value Reference Range Interpretation Comments WBC (test code = WBC) 5.7 3.7-10.4 [facility] HospitalOxdhsjfGAVVMPHBQT6035-70-99 09:20:00 Test Item Value Reference Range Interpretation Comments Basophils # (test code 0.1 See_Comment [Aut omated message] The = Basophils #) system which generated this result tra nsmitted reference range : <=0.2. The reference r leo was not used to int erpret this result as normal/abnormal . [facility] HospitalWscqzsgKXOSRWZLUL5095-08-41 09:20:00 Test Item Value Reference Range Interpretation Comments Lymphocytes # (test code = Lymphocytes 2.2 1.0-5.5 #) [facility] HospitalLwcwuvjZVGRJZUBJL3992-65-07 09:20:00 Test Item Value Reference Range Interpretation Comments Eosinophils # (test code 0.5 See_Comment [A utomated message] The = Eosinophils #) system whic h generated this result tra nsmitted reference range : <=0.5. The reference r leo was not used to int erpret this result as normal/abnormal . [facility] HospitalGfxcmwkTWEYUZJOSU8694-27-49 09:20:00 Test Item Value Reference Range Interpretation Comments Monocytes # (test code 0.5 See_Comment [Aut omated message] The = Monocytes #) system which generated this result tra nsmitted reference range : <=0.8. The reference r leo was not used to int erpret this result as normal/abnormal . [facility] HospitalLfowjbbUGPGONLDDT8366-82-09 09:20:00 Test Item Value Reference Range Interpretation Comments Basophils (test code = 1.1 See_Comment [Aut omated message] The Basophils) system which ge nerated this result tra nsmitted reference range : <=1.0. The reference r leo was not used to int erpret this result as normal/abnormal . [facility] HospitalIpywueoAVQLWFIXHA1018-79-19 09:20:00 Test Item Value Reference Range Interpretation Comments Segs-Bands # (test code = Segs-Bands #) 2.3 1.5-8.1 [facility] HospitalKwtqgbkXMFSVYYGRI6983-02-18 09:20:00 Test Item Value Reference Range Interpretation Comments Eosinophils (test code = 9.5 See_Comment [A utomated message] The Eosinophils) system which ge nerated this result tra nsmitted reference range : <=4.0. The reference r leo was not used to int erpret this result as normal/abnormal . [facility] HospitalIsrphynRPBRHZJAWY4795-87-26 09:20:00 Test Item Value Reference Range Interpretation Comments Monocytes (test code = Monocytes) 9.0 2.0-12.0 [facility] HospitalKjxszuzHKLSSVVYUG7752-38-83 09:20:00 Test Item Value Reference Range Interpretation Comments Lymphocytes (test code = Lymphocytes) 38.9 20.0-40.0 [facility] HospitalSinhanhGKZHSMOOBV7250-84-26 09:20:00 Test Item Value Reference Range Interpretation Comments Segs (test code = Segs) 41.5 45.0-75.0 [facility] HospitalFkjttdiJXLYBAQZJC5564-65-80 09:20:00 Test Item Value Reference Range Interpretation Comments MPV (test code = MPV) 9.7 7.4-10.4 [facility] HospitalYmlqcxrPTQFWXNLBD1751-36-77 09:20:00 Test Item Value Reference Range Interpretation Comments Platelet (test code = Platelet) 184 133-450 [facility] HospitalAdgyirgWCCWTARARB7092-54-58 09:20:00 Test Item Value Reference Range Interpretation Comments RDW (test code = RDW) 15.9 11.5-14.5 [facility] HospitalOjrqiddRMCEPJSYYH4271-52-75 09:20:00 Test Item Value Reference Range Interpretation Comments MCV (test code = MCV) 79.3 80.0-98.0 [facility] HospitalQvnpqnqMZUFOYDGTK1076-73-52 09:20:00 Test Item Value Reference Range Interpretation Comments MCHC (test code = MCHC) 33.0 32.0-36.0 [facility] HospitalSrkovccTMRZSTRUAE4107-18-17 09:20:00 Test Item Value Reference Range Interpretation Comments MCH (test code = MCH) 26.2 pg 27.0-31.0 [facility] HospitalKuavcryKNDPQADNOY4822-44-41 09:20:00 Test Item Value Reference Range Interpretation Comments Hct (test code = Hct) 29.4 36.0-48.0 [facility] HospitalKxcvnbbQGFHFENTFL3540-46-55 09:20:00 Test Item Value Reference Range Interpretation Comments Hgb (test code = Hgb) 9.7 12.0-16.0 [facility] HospitalHnhqsrfDYNTHOKOYN0160-37-68 09:20:00 Test Item Value Reference Range Interpretation Comments RBC (test code = RBC) 3.70 4.20-5.40 [facility] HospitalKkmvbfhLASDAEHSMJ8882-81-83 09:20:00 Test Item Value Reference Range Interpretation Comments WBC (test code = WBC) 5.7 3.7-10.4 [facility] HospitalUsyqgerOEYKMDTXMP2686-39-90 09:20:00 Test Item Value Reference Range Interpretation Comments Basophils # (test code 0.1 See_Comment [Aut omated message] The = Basophils #) system which generated this result tra nsmitted reference range : <=0.2. The reference r leo was not used to int erpret this result as normal/abnormal . [facility] HospitalXkgqhuyUDEBOKYMZE3622-73-42 09:20:00 Test Item Value Reference Range Interpretation Comments Lymphocytes # (test code = Lymphocytes 2.2 1.0-5.5 #) [facility] HospitalLcmwbwmUKPLSNAUMD3954-63-56 09:20:00 Test Item Value Reference Range Interpretation Comments Eosinophils # (test code 0.5 See_Comment [A utomated message] The = Eosinophils #) system whic h generated this result tra nsmitted reference range : <=0.5. The reference r leo was not used to int erpret this result as normal/abnormal . [facility] HospitalPqvbnpmQLHDKLKUVC2414-90-17 09:20:00 Test Item Value Reference Range Interpretation Comments Monocytes # (test code 0.5 See_Comment [Aut omated message] The = Monocytes #) system which generated this result tra nsmitted reference range : <=0.8. The reference r leo was not used to int erpret this result as normal/abnormal . [facility] HospitalRfttjlcGXVKFQGVTH3787-40-85 09:20:00 Test Item Value Reference Range Interpretation Comments Basophils (test code = 1.1 See_Comment [Aut omated message] The Basophils) system which ge nerated this result tra nsmitted reference range : <=1.0. The reference r leo was not used to int erpret this result as normal/abnormal . [facility] HospitalYqgbcxbVRCNDHURVM2819-50-70 09:20:00 Test Item Value Reference Range Interpretation Comments Segs-Bands # (test code = Segs-Bands #) 2.3 1.5-8.1 [facility] HospitalRctjxbsHOWFXOHXUJ5153-52-00 09:20:00 Test Item Value Reference Range Interpretation Comments Eosinophils (test code = 9.5 See_Comment [A utomated message] The Eosinophils) system which ge nerated this result tra nsmitted reference range : <=4.0. The reference r leo was not used to int erpret this result as normal/abnormal . [facility] HospitalCcftammEVJKQSRLFC2677-19-01 09:20:00 Test Item Value Reference Range Interpretation Comments Monocytes (test code = Monocytes) 9.0 2.0-12.0 [facility] HospitalQaeklpkONDVBQCOXV5937-87-18 09:20:00 Test Item Value Reference Range Interpretation Comments Lymphocytes (test code = Lymphocytes) 38.9 20.0-40.0 [facility] HospitalHozwnvkFJBXGAKCNU1142-91-47 09:20:00 Test Item Value Reference Range Interpretation Comments Segs (test code = Segs) 41.5 45.0-75.0 [facility] [employer] [id number] 06:34:00 Test Item Value Reference Range Interpretation Comments Magnesium Lvl (test code = Magnesium 1.7 1.8-2.4 Lvl) [facility] [id number] 06:34:00 Test Item Value Reference Range Interpretation Comments Phosphorus (test code = Phosphorus) 4.2 2.5-4.5 [facility]JszdpgdEGYXKSKTRLGS0078-13-41 06:34:00 Test Item Value Reference Range Interpretation Comments AGAP (test code = AGAP) 14.3 10.0-20.0 [facility]AuhfdctJLFPXDFKVLBZ0686-53-49 06:34:00 Test Item Value Reference Range Interpretation Comments eGFR (test code = eGFR) 41 [facility] HospitalIvtyrsrCNGZOADDLETF5759-74-64 06:34:00 Test Item Value Reference Range Interpretation Comments Chloride Lvl (test code = Chloride Lvl) 103 95-109 [facility] HospitalPhxctlbCOLOHKZWFJRQ5694-69-68 06:34:00 Test Item Value Reference Range Interpretation Comments Calcium Lvl (test code = Calcium Lvl) 8.5 8.5-10.5 [facility] HospitalSuljnxvGGDFXEGEYWPH5523-35-05 06:34:00 Test Item Value Reference Range Interpretation Comments CO2 (test code = CO2) 32 24-32 [facility] HospitalDckfjekHKMHSADTXEJJ2723-40-40 06:34:00 Test Item Value Reference Range Interpretation Comments Glucose Lvl (test code = Glucose Lvl) 173 70-99 [facility] HospitalZiljxtmSKRFPVQCXYYK7227-70-36 06:34:00 Test Item Value Reference Range Interpretation Comments BUN (test code = BUN) 37 7-22 [facility] HospitalWsywjhmOHKMKKJFOVSY6486-56-59 06:34:00 Test Item Value Reference Range Interpretation Comments Creatinine Lvl (test code = Creatinine 1.63 0.50-1.40 Lvl) [facility] HospitalXdradeqHESGTYKVTKUA8372-79-91 06:34:00 Test Item Value Reference Range Interpretation Comments Potassium Lvl (test code = Potassium 4.3 3.5-5.1 Lvl) [facility] HospitalCoiucwjYDBOLHHPMUVL5735-03-17 06:34:00 Test Item Value Reference Range Interpretation Comments Sodium Lvl (test code = Sodium Lvl) 145 135-145 [facility] [employer] [employer] [id number] 06:34:00 Test Item Value Reference Range Interpretation Comments Magnesium Lvl (test code = Magnesium 1.7 1.8-2.4 Lvl) [facility] [employer] STSLJ4881-16-91 06:34:00 Test Item Value Reference Range Interpretation Comments Phosphorus (test code = Phosphorus) 4.2 2.5-4.5 [facility] HospitalLklaqvnMQIVAQAKPSIA8259-67-88 06:34:00 Test Item Value Reference Range Interpretation Comments AGAP (test code = AGAP) 14.3 10.0-20.0 [facility] HospitalZrdxkppTUYANOOGAMKN0963-13-81 06:34:00 Test Item Value Reference Range Interpretation Comments eGFR (test code = eGFR) 41 [facility] HospitalVbumjtzJCCWEVGKTBJS5494-21-86 06:34:00 Test Item Value Reference Range Interpretation Comments Chloride Lvl (test code = Chloride Lvl) 103 95-109 [facility] HospitalEcnjgnvTFNNNLVFGTKF9759-07-89 06:34:00 Test Item Value Reference Range Interpretation Comments Calcium Lvl (test code = Calcium Lvl) 8.5 8.5-10.5 [facility] HospitalBnmfatgDQIEYUDATPZR6492-87-57 06:34:00 Test Item Value Reference Range Interpretation Comments CO2 (test code = CO2) 32 24-32 [facility] HospitalDlvlldwXODXOJFCZRPL9125-03-64 06:34:00 Test Item Value Reference Range Interpretation Comments Glucose Lvl (test code = Glucose Lvl) 173 70-99 [facility] HospitalLrccgyxNTPNBXILNIUD9319-99-07 06:34:00 Test Item Value Reference Range Interpretation Comments BUN (test code = BUN) 37 7-22 [facility] HospitalOfrsnxuEMGUCETXJVIB2572-46-29 06:34:00 Test Item Value Reference Range Interpretation Comments Creatinine Lvl (test code = Creatinine 1.63 0.50-1.40 Lvl) [facility] HospitalImebvotRAZPPPPFEAPN3260-76-09 06:34:00 Test Item Value Reference Range Interpretation Comments Potassium Lvl (test code = Potassium 4.3 3.5-5.1 Lvl) [facility] HospitalWublqqrYCFFZLVLKSES4818-57-62 06:34:00 Test Item Value Reference Range Interpretation Comments Sodium Lvl (test code = Sodium Lvl) 145 135-145 [facility] [employer] VFNQH0155-14-89 06:34:00 Test Item Value Reference Range Interpretation Comments Magnesium Lvl (test code = Magnesium 1.7 1.8-2.4 Lvl) [facility] [employer] JYTGH9325-10-55 06:34:00 Test Item Value Reference Range Interpretation Comments Phosphorus (test code = Phosphorus) 4.2 2.5-4.5 [facility] HospitalMrsfrqnEMDQYTDLUHUZ7455-98-64 06:34:00 Test Item Value Reference Range Interpretation Comments AGAP (test code = AGAP) 14.3 10.0-20.0 [facility] HospitalKnbfnzpFRYQGYAHSEFO8099-78-43 06:34:00 Test Item Value Reference Range Interpretation Comments eGFR (test code = eGFR) 41 [facility] HospitalXtackibNZKTTLSZFMUY7012-25-62 06:34:00 Test Item Value Reference Range Interpretation Comments Chloride Lvl (test code = Chloride Lvl) 103 95-109 [facility] HospitalEnpnvuhNSGPERTQMIQV8176-80-44 06:34:00 Test Item Value Reference Range Interpretation Comments Calcium Lvl (test code = Calcium Lvl) 8.5 8.5-10.5 [facility] HospitalPcacwndCZCHBUKWHHTP6269-35-65 06:34:00 Test Item Value Reference Range Interpretation Comments CO2 (test code = CO2) 32 24-32 [facility] HospitalTygncdtXQTGOWMYBEPH5011-52-24 06:34:00 Test Item Value Reference Range Interpretation Comments Glucose Lvl (test code = Glucose Lvl) 173 70-99 [facility] HospitalFzanlshVXLIIUFMBMFN6040-89-57 06:34:00 Test Item Value Reference Range Interpretation Comments BUN (test code = BUN) 37 7-22 [facility] HospitalCdevbfjDVLRBLPLRVFM7340-60-97 06:34:00 Test Item Value Reference Range Interpretation Comments Creatinine Lvl (test code = Creatinine 1.63 0.50-1.40 Lvl) [facility] HospitalGwllejaWEAIZEQKHETZ0619-41-85 06:34:00 Test Item Value Reference Range Interpretation Comments Potassium Lvl (test code = Potassium 4.3 3.5-5.1 Lvl) [facility] HospitalAbxlrssJKQIZXEQJRPH4752-80-72 06:34:00 Test Item Value Reference Range Interpretation Comments Sodium Lvl (test code = Sodium Lvl) 145 135-145 [facility]2016-12-24 06:34:00 Test Item Value Reference Range Interpretation Comments Magnesium Lvl (test code = Magnesium 1.7 1.8-2.4 Lvl) [facility] [employer] [id number] 06:34:00 Test Item Value Reference Range Interpretation Comments Phosphorus (test code = Phosphorus) 4.2 2.5-4.5 [facility] HospitalCcohqfdPFVOFXZXAUAP0518-17-33 06:34:00 Test Item Value Reference Range Interpretation Comments AGAP (test code = AGAP) 14.3 10.0-20.0 [facility] HospitalLdygdqzLFGSPWFEUSDH8260-13-76 06:34:00 Test Item Value Reference Range Interpretation Comments eGFR (test code = eGFR) 41 [facility] HospitalNabzkfdSYFGAMDYBPEW2067-62-41 06:34:00 Test Item Value Reference Range Interpretation Comments Chloride Lvl (test code = Chloride Lvl) 103 95-109 [facility] HospitalTpxobzkKVNPOMWIAZLB7098-89-05 06:34:00 Test Item Value Reference Range Interpretation Comments Calcium Lvl (test code = Calcium Lvl) 8.5 8.5-10.5 [facility] HospitalZaiwykgPZDMELGUPDNZ9273-19-52 06:34:00 Test Item Value Reference Range Interpretation Comments CO2 (test code = CO2) 32 24-32 [facility] HospitalAcezhitHHFTUDWMGBWH2219-91-52 06:34:00 Test Item Value Reference Range Interpretation Comments Glucose Lvl (test code = Glucose Lvl) 173 70-99 [facility] HospitalCblbmgvSTEWECAJFONJ3357-53-14 06:34:00 Test Item Value Reference Range Interpretation Comments BUN (test code = BUN) 37 7-22 [facility] HospitalRnfamgnLQSRNOXXIEWQ0690-20-86 06:34:00 Test Item Value Reference Range Interpretation Comments Creatinine Lvl (test code = Creatinine 1.63 0.50-1.40 Lvl) [facility] HospitalOptvyziMFRQZJPIJGRW6381-19-73 06:34:00 Test Item Value Reference Range Interpretation Comments Potassium Lvl (test code = Potassium 4.3 3.5-5.1 Lvl) [facility] HospitalWbpqxhyXGQXDXZFSVAZ1133-67-47 06:34:00 Test Item Value Reference Range Interpretation Comments Sodium Lvl (test code = Sodium Lvl) 145 135-145 [facility] [employer] RZPCD9624-46-84 06:34:00 Test Item Value Reference Range Interpretation Comments Magnesium Lvl (test code = Magnesium 1.7 1.8-2.4 Lvl) [facility] [employer] NESDZ8615-83-49 06:34:00 Test Item Value Reference Range Interpretation Comments Phosphorus (test code = Phosphorus) 4.2 2.5-4.5 [facility] HospitalYupcugeNLPOVHENKGHV7589-93-55 06:34:00 Test Item Value Reference Range Interpretation Comments AGAP (test code = AGAP) 14.3 10.0-20.0 [facility] HospitalDtegfykYSIVEINOFCOP1348-10-66 06:34:00 Test Item Value Reference Range Interpretation Comments eGFR (test code = eGFR) 41 [facility] HospitalIpjwwdpSDDZXYOMULZL8055-98-49 06:34:00 Test Item Value Reference Range Interpretation Comments Chloride Lvl (test code = Chloride Lvl) 103 95-109 [facility] HospitalUerdcosMQIXFKFDPMRT3320-12-79 06:34:00 Test Item Value Reference Range Interpretation Comments Calcium Lvl (test code = Calcium Lvl) 8.5 8.5-10.5 [facility] HospitalZalgnhnRFWIKBNFQLPV6332-54-39 06:34:00 Test Item Value Reference Range Interpretation Comments CO2 (test code = CO2) 32 24-32 [facility] HospitalGzlvihzMTKTTRHNOSKU9235-86-28 06:34:00 Test Item Value Reference Range Interpretation Comments Glucose Lvl (test code = Glucose Lvl) 173 70-99 [facility] HospitalTawtxmnPBJEEZPQEFKE4037-36-99 06:34:00 Test Item Value Reference Range Interpretation Comments BUN (test code = BUN) 37 7-22 [facility] HospitalSifxnccHVLBQRXERPHD5109-71-33 06:34:00 Test Item Value Reference Range Interpretation Comments Creatinine Lvl (test code = Creatinine 1.63 0.50-1.40 Lvl) [facility] HospitalZzyquolVJIINTXHNLWW8130-90-80 06:34:00 Test Item Value Reference Range Interpretation Comments Potassium Lvl (test code = Potassium 4.3 3.5-5.1 Lvl) [facility] HospitalIpmzhpxOTMWLANHGJVB1002-52-98 06:34:00 Test Item Value Reference Range Interpretation Comments Sodium Lvl (test code = Sodium Lvl) 145 135-145 [facility]2016-12-22 16:21:00 Test Item Value Reference Range Interpretation Comments Ammonia (test code = Ammonia) 48.0 [facility]2016-12-22 16:21:00 Test Item Value Reference Range Interpretation Comments Ammonia (test code = Ammonia) 48.0 [facility]2016-12-22 16:21:00 Test Item Value Reference Range Interpretation Comments Ammonia (test code = Ammonia) 48.0 [facility]2016-12-22 16:21:00 Test Item Value Reference Range Interpretation Comments Ammonia (test code = Ammonia) 48.0 [facility]2016-12-22 16:21:00 Test Item Value Reference Range Interpretation Comments Ammonia (test code = Ammonia) 48.0 [id number] 14:56:00 Test Item Value Reference Range Interpretation Comments IVETTE Interp (test code Pattern appears = IVETTE Interp) Nucleolar. [facility] CenterLqsahfrEDSFMFHANK9099-06-36 14:56:00 Test Item Value Reference Range Interpretation Comments IVETTE Titer (test code = 1:40 *ABN*(06/11/16 IVETTE Titer) 8:56 AM) [facility] CenterMcvigkjKRNYKPYDNU3563-09-61 14:56:00 Test Item Value Reference Range Interpretation Comments Hep Bs Ag (test code Negative *NA*(06/11/16 = Hep Bs Ag) 8:56 AM) [facility] CenterGybamazEZFYBHIWUW0210-02-31 14:56:00 Test Item Value Reference Range Interpretation Comments Hep C Ab (test code = Negative *NA*(06/11/16 Hep C Ab) 8:56 AM) [facility] CenterLibtqjpHMTEKKRYYS2877-23-38 14:56:00 Test Item Value Reference Range Interpretation Comments Hep B Core IgM (test Negative *NA*(06/11/16 code = Hep B Core 8:56 AM) IgM) [facility] CenterQgollhpBQGJJMYHLA8980-37-26 14:56:00 Test Item Value Reference Range Interpretation Comments Hep A IgM (test code Negative *NA*(06/11/16 = Hep A IgM) 8:56 AM) [facility] CenterEjhcuvwLODZEPLMVJ9169-41-96 14:56:00 Test Item Value Reference Range Interpretation Comments HIV Ag/Ab 4th Gen Negative *NA*(06/11/16 (test code = HIV 8:56 AM) Ag/Ab 4th Gen) [facility] CenterEzqrfatHCWJDYAYTD1478-98-43 14:56:00 Test Item Value Reference Range Interpretation Comments IVETTE (test code = IVETTE) Positive *ABN*(06/11/16 8:56 AM) [facility] CenterHoawwjaSPTMHWAUFL9918-18-06 14:56:00 Test Item Value Reference Range Interpretation Comments IVETTE Interp (test code Pattern appears = IVETTE Interp) Nucleolar. [facility] CenterLnrtjbpLWZGGQIYQF1503-81-70 14:56:00 Test Item Value Reference Range Interpretation Comments IVETTE Titer (test code = 1:40 *ABN*(06/11/16 IVETTE Titer) 8:56 AM) [facility] CenterSdykddnZHGYHYYAEI9310-40-85 14:56:00 Test Item Value Reference Range Interpretation Comments Hep Bs Ag (test code Negative *NA*(06/11/16 = Hep Bs Ag) 8:56 AM) [facility] CenterQqtkvtvFPPYPCAHEE1329-85-77 14:56:00 Test Item Value Reference Range Interpretation Comments Hep C Ab (test code = Negative *NA*(06/11/16 Hep C Ab) 8:56 AM) [facility] CenterTpzgsseZPVHMETIWJ9833-87-95 14:56:00 Test Item Value Reference Range Interpretation Comments Hep B Core IgM (test Negative *NA*(06/11/16 code = Hep B Core 8:56 AM) IgM) [facility] CenterFynirpcBBJNGAGFVS0480-19-06 14:56:00 Test Item Value Reference Range Interpretation Comments Hep A IgM (test code Negative *NA*(06/11/16 = Hep A IgM) 8:56 AM) [facility] CenterJrjmbyqLJJPFRVZDC0119-50-51 14:56:00 Test Item Value Reference Range Interpretation Comments HIV Ag/Ab 4th Gen Negative *NA*(06/11/16 (test code = HIV 8:56 AM) Ag/Ab 4th Gen) [facility] CenterVksfxlzMHMDUMWSOJ6316-97-19 14:56:00 Test Item Value Reference Range Interpretation Comments IVETTE (test code = IVETTE) Positive *ABN*(06/11/16 8:56 AM) [facility] CenterRxpsutyMDJIIGDJII3561-04-43 14:56:00 Test Item Value Reference Range Interpretation Comments IVETTE Interp (test code Pattern appears = IVETTE Interp) Nucleolar. [facility] CenterMuwrtpsASOAZNNVXW4626-30-56 14:56:00 Test Item Value Reference Range Interpretation Comments IVETTE Titer (test code = 1:40 *ABN*(06/11/16 IVETTE Titer) 8:56 AM) [facility] CenterByxzkddJKOBOZZXBE9913-80-50 14:56:00 Test Item Value Reference Range Interpretation Comments Hep Bs Ag (test code Negative *NA*(06/11/16 = Hep Bs Ag) 8:56 AM) [facility] CenterLfrgdttSRTACLEGKS7665-82-87 14:56:00 Test Item Value Reference Range Interpretation Comments Hep C Ab (test code = Negative *NA*(06/11/16 Hep C Ab) 8:56 AM) [facility] CenterIyfrtmzCAGQZGGFIM4767-33-04 14:56:00 Test Item Value Reference Range Interpretation Comments Hep B Core IgM (test Negative *NA*(06/11/16 code = Hep B Core 8:56 AM) IgM) [facility] CenterLikhbrbCQWBWCINUR4265-96-22 14:56:00 Test Item Value Reference Range Interpretation Comments Hep A IgM (test code Negative *NA*(06/11/16 = Hep A IgM) 8:56 AM) [facility] Cent[id number] 14:56:00 Test Item Value Reference Range Interpretation Comments HIV Ag/Ab 4th Gen Negative *NA*(06/11/16 (test code = HIV 8:56 AM) Ag/Ab 4th Gen) [facility] CenterRxqjxzkPEKXJXJFHQ4642-36-18 14:56:00 Test Item Value Reference Range Interpretation Comments IVETTE (test code = IVETTE) Positive *ABN*(06/11/16 8:56 AM) [facility] CenterLybuqcfWBVSULQISY6615-70-57 14:56:00 Test Item Value Reference Range Interpretation Comments IVETTE Interp (test code Pattern appears = IVETTE Interp) Nucleolar. [facility] CenterTgighsgOBLWMUGJUV6357-68-99 14:56:00 Test Item Value Reference Range Interpretation Comments IVETTE Titer (test code = 1:40 *ABN*(06/11/16 IVETTE Titer) 8:56 AM) [facility] CenterTizlzklZGBRIZQWNU2084-64-80 14:56:00 Test Item Value Reference Range Interpretation Comments Hep Bs Ag (test code Negative *NA*(06/11/16 = Hep Bs Ag) 8:56 AM) [facility] CenterCfvanpbQKILRTFDWH1319-72-48 14:56:00 Test Item Value Reference Range Interpretation Comments Hep C Ab (test code = Negative *NA*(06/11/16 Hep C Ab) 8:56 AM) [facility] CenterUbbbwffOQLHYPBONQ8464-78-91 14:56:00 Test Item Value Reference Range Interpretation Comments Hep B Core IgM (test Negative *NA*(06/11/16 code = Hep B Core 8:56 AM) IgM) [facility] CenterIoqrbbbIDWIYLSJGO5942-45-82 14:56:00 Test Item Value Reference Range Interpretation Comments Hep A IgM (test code Negative *NA*(06/11/16 = Hep A IgM) 8:56 AM) [facility] CenterKkfjicqNVKVCYFAGS4721-13-12 14:56:00 Test Item Value Reference Range Interpretation Comments HIV Ag/Ab 4th Gen Negative *NA*(06/11/16 (test code = HIV 8:56 AM) Ag/Ab 4th Gen) [facility] CenterIhdmruuQXVJTKBROG2145-40-40 14:56:00 Test Item Value Reference Range Interpretation Comments IVETTE (test code = IVETTE) Positive *ABN*(06/11/16 8:56 AM) [facility] CenterXckbdgaAGHFTBCQMQ0927-26-94 14:56:00 Test Item Value Reference Range Interpretation Comments IVETTE Interp (test code Pattern appears = IVETTE Interp) Nucleolar. [facility] CenterSnxciorQEASCROQUP1435-41-62 14:56:00 Test Item Value Reference Range Interpretation Comments IVETTE Titer (test code = 1:40 *ABN*(06/11/16 IVETTE Titer) 8:56 AM) [facility] CenterPeqvznfNJQKRTOHPH7849-85-01 14:56:00 Test Item Value Reference Range Interpretation Comments Hep Bs Ag (test code Negative *NA*(06/11/16 = Hep Bs Ag) 8:56 AM) [facility] CenterUegcmyfSADODUYBIO1800-96-43 14:56:00 Test Item Value Reference Range Interpretation Comments Hep C Ab (test code = Negative *NA*(06/11/16 Hep C Ab) 8:56 AM) [facility] CenterLhocprnGHEKOSCXKK2609-01-06 14:56:00 Test Item Value Reference Range Interpretation Comments Hep B Core IgM (test Negative *NA*(06/11/16 code = Hep B Core 8:56 AM) IgM) [facility] CenterUehckinUGVWQRPXQA0256-96-52 14:56:00 Test Item Value Reference Range Interpretation Comments Hep A IgM (test code Negative *NA*(06/11/16 = Hep A IgM) 8:56 AM) [facility] CenterMrorakeMEVISCZLKQ7576-59-00 14:56:00 Test Item Value Reference Range Interpretation Comments HIV Ag/Ab 4th Gen Negative *NA*(06/11/16 (test code = HIV 8:56 AM) Ag/Ab 4th Gen) [facility] CenterUeqshusNJEKMFDJWZ6012-12-65 14:56:00 Test Item Value Reference Range Interpretation Comments IVETTE (test code = IVETTE) Positive *ABN*(06/11/16 8:56 AM) [facility]2016-12-22 10:42:00 Test Item Value Reference Range Interpretation Comments Bili Total (test code = Bili Total) 0.1 0.2-1.3 [facility]2016-12-22 10:42:00 Test Item Value Reference Range Interpretation Comments Total Protein (test code = Total 5.2 6.4-8.4 Protein) [facility]2016-12-22 10:42:00 Test Item Value Reference Range Interpretation Comments Albumin Lvl (test code = Albumin Lvl) 1.6 3.5-5.0 [facility]2016-12-22 10:42:00 Test Item Value Reference Range Interpretation Comments B/C Ratio (test code = B/C Ratio) 20 6-25 [facility]2016-12-22 10:42:00 Test Item Value Reference Range Interpretation Comments Globulin (test code = Globulin) 3.6 2.7-4.2 [facility]2016-12-22 10:42:00 Test Item Value Reference Range Interpretation Comments A/G Ratio (test code = A/G Ratio) 0.4 0.7-1.6 [facility]2016-12-22 10:42:00 Test Item Value Reference Range Interpretation Comments Alk Phos (test code = Alk Phos) 74 39-136 [facility]2016-12-22 10:42:00 Test Item Value Reference Range Interpretation Comments ALT (test code = ALT) 14 See_Comment [Auto mated message] The system which ge nerated this result transmit rohit reference range : <=65. The reference range was not used to interpr et this result as reji l/abnormal. [facility]2016-12-22 10:42:00 Test Item Value Reference Range Interpretation Comments AST (test code = AST) 13 See_Comment [Auto mated message] The system which ge nerated this result transmit rohit reference range : <=37. The reference range was not used to interpr et this result as reji l/abnormal. [facility]NIW22[facility]-92 10:42:00 Test Item Value Reference Range Interpretation Comments INR (test code = INR) 1.06 0.85-1.17 [facility] ResourcesCcpgeeeANOFKRVWPG5610-53-96 10:42:00 Test Item Value Reference Range Interpretation Comments PT (test code = PT) 14.0 s 12.0-14.7 [facility] ResourcesNdllowsAHPRZLJPMV0154-98-79 10:42:00 Test Item Value Reference Range Interpretation Comments PTT (test code = PTT) 36.4 s 22.9-35.8 [facility] [id number] 10:42:00 Test Item Value Reference Range Interpretation Comments Hgb A1C (test code = Hgb A1C) 10.5 [facility] [id number] 10:42:00 Test Item Value Reference Range Interpretation Comments Bili Total (test code = Bili Total) 0.1 0.2-1.3 [facility]2016-12-22 10:42:00 Test Item Value Reference Range Interpretation Comments Total Protein (test code = Total 5.2 6.4-8.4 Protein) [place] [id number] 10:42:00 Test Item Value Reference Range Interpretation Comments Albumin Lvl (test code = Albumin Lvl) 1.6 3.5-5.0 [place] [id number] 10:42:00 Test Item Value Reference Range Interpretation Comments B/C Ratio (test code = B/C Ratio) 20 6-25 [place] [id number] 10:42:00 Test Item Value Reference Range Interpretation Comments Globulin (test code = Globulin) 3.6 2.7-4.2 [place] [id number] 10:42:00 Test Item Value Reference Range Interpretation Comments A/G Ratio (test code = A/G Ratio) 0.4 0.7-1.6 [facility]2016-12-22 10:42:00 Test Item Value Reference Range Interpretation Comments Alk Phos (test code = Alk Phos) 74 39-136 [facility]2016-12-22 10:42:00 Test Item Value Reference Range Interpretation Comments ALT (test code = ALT) 14 See_Comment [Auto mated message] The system which ge nerated this result transmit rohit reference range : <=65. The reference range was not used to interpr et this result as reji l/abnormal. [facility]2016-12-22 10:42:00 Test Item Value Reference Range Interpretation Comments AST (test code = AST) 13 See_Comment [Auto mated message] The system which ge nerated this result transmit rohit reference range : <=37. The reference range was not used to interpr et this result as reji l/abnormal. [facility]YzugkffYXOZOQTJMS5482-28-72 10:42:00 Test Item Value Reference Range Interpretation Comments INR (test code = INR) 1.06 0.85-1.17 [facility] HospitalHimytweOWVPVSQIJB0950-86-74 10:42:00 Test Item Value Reference Range Interpretation Comments PT (test code = PT) 14.0 s 12.0-14.7 [facility] ResourcesOcpifebXQSEXGEMTF7114-23-62 10:42:00 Test Item Value Reference Range Interpretation Comments PTT (test code = PTT) 36.4 s 22.9-35.8 [facility] DQLVUZFRI7051-81-09 10:42:00 Test Item Value Reference Range Interpretation Comments Hgb A1C (test code = Hgb A1C) 10.5 [facility]2016-12-22 10:42:00 Test Item Value Reference Range Interpretation Comments Bili Total (test code = Bili Total) 0.1 0.2-1.3 [facility]2016-12-22 10:42:00 Test Item Value Reference Range Interpretation Comments Total Protein (test code = Total 5.2 6.4-8.4 Protein) [facility]2016-12-22 10:42:00 Test Item Value Reference Range Interpretation Comments Albumin Lvl (test code = Albumin Lvl) 1.6 3.5-5.0 [facility]2016-12-22 10:42:00 Test Item Value Reference Range Interpretation Comments B/C Ratio (test code = B/C Ratio) 20 6-25 [facility]2016-12-22 10:42:00 Test Item Value Reference Range Interpretation Comments Globulin (test code = Globulin) 3.6 2.7-4.2 [facility]2016-12-22 10:42:00 Test Item Value Reference Range Interpretation Comments A/G Ratio (test code = A/G Ratio) 0.4 0.7-1.6 [facility]2016-12-22 10:42:00 Test Item Value Reference Range Interpretation Comments Alk Phos (test code = Alk Phos) 74 39-136 [facility]2016-12-22 10:42:00 Test Item Value Reference Range Interpretation Comments ALT (test code = ALT) 14 See_Comment [Auto mated message] The system which ge nerated this result transmit rohit reference range : <=65. The reference range was not used to interpr et this result as reji l/abnormal. [facility]2016-12-22 10:42:00 Test Item Value Reference Range Interpretation Comments AST (test code = AST) 13 See_Comment [Auto mated message] The system which ge nerated this result transmit rohit reference range : <=37. The reference range was not used to interpr et this result as reji l/abnormal. [facility] HospitalXckhtyeLGPZNNYKIU6378-40-35 10:42:00 Test Item Value Reference Range Interpretation Comments INR (test code = INR) 1.06 0.85-1.17 [facility] HospitalZhwevjqCUCZFZVSEG3741-65-10 10:42:00 Test Item Value Reference Range Interpretation Comments PT (test code = PT) 14.0 s 12.0-14.7 [facility] HospitalNkocszpRURYLGIBAI1292-83-75 10:42:00 Test Item Value Reference Range Interpretation Comments PTT (test code = PTT) 36.4 s 22.9-35.8 [facility] [id number] 10:42:00 Test Item Value Reference Range Interpretation Comments Hgb A1C (test code = Hgb A1C) 10.5 [facility]2016-12-22 10:42:00 Test Item Value Reference Range Interpretation Comments Bili Total (test code = Bili Total) 0.1 0.2-1.3 [facility]2016-12-22 10:42:00 Test Item Value Reference Range Interpretation Comments Total Protein (test code = Total 5.2 6.4-8.4 Protein) [facility]2016-12-22 10:42:00 Test Item Value Reference Range Interpretation Comments Albumin Lvl (test code = Albumin Lvl) 1.6 3.5-5.0 [facility]2016-12-22 10:42:00 Test Item Value Reference Range Interpretation Comments B/C Ratio (test code = B/C Ratio) 20 6-25 [facility]2016-12-22 10:42:00 Test Item Value Reference Range Interpretation Comments Globulin (test code = Globulin) 3.6 2.7-4.2 [facility]2016-12-22 10:42:00 Test Item Value Reference Range Interpretation Comments A/G Ratio (test code = A/G Ratio) 0.4 0.7-1.6 [facility]2016-12-22 10:42:00 Test Item Value Reference Range Interpretation Comments Alk Phos (test code = Alk Phos) 74 39-136 [facility]2016-12-22 10:42:00 Test Item Value Reference Range Interpretation Comments ALT (test code = ALT) 14 See_Comment [Auto mated message] The system which ge nerated this result transmit rohit reference range : <=65. The reference range was not used to interpr et this result as reji l/abnormal. [facility] [employer] [id number] 10:42:00 Test Item Value Reference Range Interpretation Comments AST (test code = AST) 13 See_Comment [Auto mated message] The system which ge nerated this result transmit rohit reference range : <=37. The reference range was not used to interpr et this result as reji l/abnormal. [facility] ResourcesBhpgphmGLUVOYBUIQ4424-72-04 10:42:00 Test Item Value Reference Range Interpretation Comments INR (test code = INR) 1.06 0.85-1.17 [facility]NftsolvMSVZTDTXRV0733-43-15 10:42:00 Test Item Value Reference Range Interpretation Comments PT (test code = PT) 14.0 s 12.0-14.7 [facility] ResourcesIwivjoqBLPZTXLDRC6331-95-23 10:42:00 Test Item Value Reference Range Interpretation Comments PTT (test code = PTT) 36.4 s 22.9-35.8 [facility] [id number] 10:42:00 Test Item Value Reference Range Interpretation Comments Hgb A1C (test code = Hgb A1C) 10.5 [facility] [employer] [id number] 10:42:00 Test Item Value Reference Range Interpretation Comments Bili Total (test code = Bili Total) 0.1 0.2-1.3 [facility] [id number] 10:42:00 Test Item Value Reference Range Interpretation Comments Total Protein (test code = Total 5.2 6.4-8.4 Protein) [facility] [id number] 10:42:00 Test Item Value Reference Range Interpretation Comments Albumin Lvl (test code = Albumin Lvl) 1.6 3.5-5.0 [facility] [id number] 10:42:00 Test Item Value Reference Range Interpretation Comments B/C Ratio (test code = B/C Ratio) 20 6-25 [facility] [id number] 10:42:00 Test Item Value Reference Range Interpretation Comments Globulin (test code = Globulin) 3.6 2.7-4.2 [facility] ResourcesMachine [employer] [id number] 10:42:00 Test Item Value Reference Range Interpretation Comments A/G Ratio (test code = A/G Ratio) 0.4 0.7-1.6 [facility] [id number] 10:42:00 Test Item Value Reference Range Interpretation Comments Alk Phos (test code = Alk Phos) 74 39-136 [facility] [id number] 10:42:00 Test Item Value Reference Range Interpretation Comments ALT (test code = ALT) 14 See_Comment [Auto mated message] The system which ge nerated this result transmit rohit reference range : <=65. The reference range was not used to interpr et this result as reji l/abnormal. [facility] ResourcesMachine [employer]ception Technologies [id number] 10:42:00 Test Item Value Reference Range Interpretation Comments AST (test code = AST) 13 See_Comment [Auto mated message] The system which ge nerated this result transmit rohit reference range : <=37. The reference range was not used to interpr et this result as reji l/abnormal. [facility] Resourc[id number] 10:42:00 Test Item Value Reference Range Interpretation Comments INR (test code = INR) 1.06 0.85-1.17 [facility] ResourcesIkqziqvQXJYDOFPSE4587-40-98 10:42:00 Test Item Value Reference Range Interpretation Comments PT (test code = PT) 14.0 s 12.0-14.7 [facility] ResourcesPfzxgyrVJQMHCNWRD3854-79-21 10:42:00 Test Item Value Reference Range Interpretation Comments PTT (test code = PTT) 36.4 s 22.9-35.8 [facility] ResourcesSPECIAL GPTVBKUFV4929-90-95 10:42:00 Test Item Value Reference Range Interpretation Comments Hgb A1C (test code = Hgb A1C) 10.5 [facility]annCARDIAC [id number] 02:08:00 Test Item Value Reference Range Interpretation Comments CK MB Index (test 1.8 See_Comment [Automate d message] The code = CK MB Index) system w [facility] generated this result transmit rohit reference range : <=2.5. The reference range was not used to interpr et this result as reji l/abnormal. [facility] ResourcesCARDIAC [id number] 02:08:00 Test Item Value Reference Range Interpretation Comments CK MB (test code = CK MB) 2.9 0.5-3.6 [facility] [employer] [id number] 02:08:00 Test Item Value Reference Range Interpretation Comments Troponin-T (test code 0.061 See_Comment [Auto mated message] The = Troponin-T) system which g enerated this result transmit rohit reference range : <=0.100. The reference r leo was not used to interpr et this result as reji l/abnormal. [facility] [employer] [id number] 02:08:00 Test Item Value Reference Range Interpretation Comments Total CK (test code = Total CK) 159 12-191 [facility] [employer]2016-12-22 02:08:00 Test Item Value Reference Range Interpretation Comments Troponin-I (test code no gt See_Comment [Auto mated message] The = Troponin-I) system which g enerated this result transmit rohit reference range : <=0.40. The reference r leo was not used to interpr et this result as reji l/abnormal. [facility] [employer]2016-12-22 02:08:00 Test Item Value Reference Range Interpretation Comments Bili Total (test code = Bili Total) 0.2 0.2-1.3 [facility] [employer]2016-12-22 02:08:00 Test Item Value Reference Range Interpretation Comments Bili Direct (test code 0.1 See_Comment [Aut omated message] The = Bili Direct) system which generated this result tra nsmitted reference range : <=0.3. The reference r leo was not used to int erpret this result as reji l/abnormal. [facility] [employer]2016-12-22 02:08:00 Test Item Value Reference Range Interpretation Comments Bili Indirect (test 0.1 See_Comment [Automa rohit message] The code = Bili Indirect) system which generated this result tra nsmitted reference range : <=1.0. The reference r loe was not used to int erpret this result as normal/abnormal . [facility] [employer]2016-12-22 02:08:00 Test Item Value Reference Range Interpretation Comments Total Protein (test code = Total 5.7 6.4-8.4 Protein) [facility] [employer]2016-12-22 02:08:00 Test Item Value Reference Range Interpretation Comments A/G Ratio (test code = A/G Ratio) 0.5 0.7-1.6 [facility] [employer] [id number] 02:08:00 Test Item Value Reference Range Interpretation Comments Albumin Lvl (test code = Albumin Lvl) 1.8 3.5-5.0 [facility] [employer] [id number] 02:08:00 Test Item Value Reference Range Interpretation Comments Globulin (test code = Globulin) 3.9 2.7-4.2 [facility] [employer] [id number] 02:08:00 Test Item Value Reference Range Interpretation Comments Alk Phos (test code = Alk Phos) 99 39-136 [facility] [employer] [id number] 02:08:00 Test Item Value Reference Range Interpretation Comments AST (test code = AST) 21 See_Comment [Auto mated message] The system which ge nerated this result transmit rohit reference range : <=37. The reference range was not used to interpr et this result as reji l/abnormal. [facility] [employer] [id number] 02:08:00 Test Item Value Reference Range Interpretation Comments ALT (test code = ALT) 17 See_Comment [Auto mated message] The system which ge nerated this result transmit rohit reference range : <=65. The reference range was not used to interpr et this result as reji l/abnormal. [facility]Data[facility]ent[facility] [id number] 02:08:00 Test Item Value Reference Range Interpretation Comments UDS Note (test code = See Note *NA*(06/10/16 UDS Note) 8:08 PM) [facility] [employer] [id number] 02:08:00 Test Item Value Reference Range Interpretation Comments U Propoxyph Scr (test Negative *NA*(06/10/16 code = U Propoxyph Scr) 8:08 PM) [facility] [employer] [id number] 02:08:00 Test Item Value Reference Range Interpretation Comments U Opiate Scr (test Negative *NA*(06/10/16 code = U Opiate Scr) 8:08 PM) [facility] [employer] [id number] 02:08:00 Test Item Value Reference Range Interpretation Comments U Methadone Scr (test Negative *NA*(06/10/16 code = U Methadone Scr) 8:08 PM) [facility] [id number] 02:08:00 Test Item Value Reference Range Interpretation Comments U Phencyc Scr (test Negative *NA*(06/10/16 code = U Phencyc Scr) 8:08 PM) [facility] [id number] 02:08:00 Test Item Value Reference Range Interpretation Comments U Cannab Scr (test Negative *NA*(06/10/16 code = U Cannab Scr) 8:08 PM) [facility] [id number] 02:08:00 Test Item Value Reference Range Interpretation Comments U Amph Scr (test code Negative *NA*(06/10/16 = U Amph Scr) 8:08 PM) [facility] [id number] 02:08:00 Test Item Value Reference Range Interpretation Comments U Kelly Scr (test code Negative *NA*(06/10/16 = U Kelly Scr) 8:08 PM) [facility] [id number] 02:08:00 Test Item Value Reference Range Interpretation Comments U Benzodia Scr (test Negative *NA*(06/10/16 code = U Benzodia Scr) 8:08 PM) [facility] [id number] 02:08:00 Test Item Value Reference Range Interpretation Comments U Cocaine Scr (test Negative *NA*(06/10/16 code = U Cocaine Scr) 8:08 PM) [facility] [id number] 02:08:00 Test Item Value Reference Range Interpretation Comments LDL (Calculated) (test code = LDL 75 (Calculated)) [facility] [id number] 02:08:00 Test Item Value Reference Range Interpretation Comments VLDL (test code = VLDL) 27 [facility] [id number] 02:08:00 Test Item Value Reference Range Interpretation Comments Chol (test code = Chol) 133 [facility] [id number] 02:08:00 Test Item Value Reference Range Interpretation Comments Trig (test code = Trig) 133 [facility] [id number] 02:08:00 Test Item Value Reference Range Interpretation Comments CHD Risk (test code = CHD Risk) 4.29 3.90-5.80 [facility] [id number] 02:08:00 Test Item Value Reference Range Interpretation Comments HDL (test code = HDL) 31 [facility] AND [id number] 02:08:00 Test Item Value Reference Range Interpretation Comments UA Urobilinogen (test code = UA <=1.0 mg/dL 0.1-1.0 Urobilinogen) [facility] AND [id number] 02:08:00 Test Item Value Reference Range Interpretation Comments UA Ketones (test code = UA Negative mg/dL Ketones) [facility] AND [id number] 02:08:00 Test Item Value Reference Range Interpretation Comments UA Glucose (test code = UA Glucose) 300 mg/dL [facility] AND [id number] 02:08:00 Test Item Value Reference Range Interpretation Comments UA Protein (test code = UA >=300 mg/dL Protein) [facility] AND [id number] 02:08:00 Test Item Value Reference Range Interpretation Comments UA pH (test code = UA pH) 6.0 5.0-8.0 [facility] AND [id number] 02:08:00 Test Item Value Reference Range Interpretation Comments UA Nitrite (test code Negative (06/10/16 8:08 = UA Nitrite) PM) [facility] AND [id number] 02:08:00 Test Item Value Reference Range Interpretation Comments UA Blood (test code = Trace *ABN*(06/10/16 UA Blood) 8:08 PM) [facility] AND [id number] 02:08:00 Test Item Value Reference Range Interpretation Comments UA Bili (test code = Negative *NA*(06/10/16 UA Bili) 8:08 PM) [facility] AND [id number] 02:08:00 Test Item Value Reference Range Interpretation Comments UA Mucus (test code = UA Mucus) Few /LPF [facility] AND [id number] 02:08:00 Test Item Value Reference Range Interpretation Comments UA RBC (test code = 4 See_Comment [Automa rohit message] The UA RBC) system which ge nerated this result transmit rohit reference range : <=2. The reference range was not used to interpr et this result as reji l/abnormal. [facility] AND [id number] 02:08:00 Test Item Value Reference Range Interpretation Comments UA Sq Epi (test code = UA Sq Epi) Few /LPF [facility] [id number] 02:08:00 Test Item Value Reference Range Interpretation Comments UA WBC (test code = 5 See_Comment [Automa rohit message] The UA WBC) system which ge nerated this result transmit rohit reference range : <=5. The reference range was not used to interpr et this result as reji l/abnormal. [facility] [id number] 02:08:00 Test Item Value Reference Range Interpretation Comments UA Leuk Est (test code Small *ABN*(06/10/16 = UA Leuk Est) 8:08 PM) [facility] [id number] 02:08:00 Test Item Value Reference Range Interpretation Comments UA Hyal Cast (test 1 See_Comment [Automat ed message] The code = UA Hyal Cast) system which generated this result transmit rohit reference range : <=2. The reference range was not used to interpr et this result as reji l/abnormal. [facility] [id number] 02:08:00 Test Item Value Reference Range Interpretation Comments UA Spec Grav (test code = UA Spec Grav) 1.009 [facility] [id number] 02:08:00 Test Item Value Reference Range Interpretation Comments UA Color (test code = Yellow *NA*(06/10/16 UA Color) 8:08 PM) [facility] [id number] 02:08:00 Test Item Value Reference Range Interpretation Comments UA Turbidity (test code = Clear (06/10/16 8:08 UA Turbidity) PM) [facility] [id number] 02:08:00 Test Item Value Reference Range Interpretation Comments U Preg (test code = U Negative (06/10/16 8:08 Preg) PM) [facility] [id number] 02:08:00 Test Item Value Reference Range Interpretation Comments U Protein (test code = U Protein) 375.4 [facility] [id number] 02:08:00 Test Item Value Reference Range Interpretation Comments U Prot/Creat (test code = U Prot/Creat) 5.4 [facility] [id number] 02:08:00 Test Item Value Reference Range Interpretation Comments U Creatinine (test code = U Creatinine) 69.80 [facility] [employer]2016-12-22 02:08:00 Test Item Value Reference Range Interpretation Comments CK MB Index (test 1.8 See_Comment [Automate d message] The code = CK MB Index) system w [facility] generated this result transmit rohit reference range : <=2.5. The reference range was not used to interpr et this result as reji l/abnormal. [employer]2016-12-22 02:08:00 Test Item Value Reference Range Interpretation Comments CK MB (test code = CK MB) 2.9 0.5-3.6 [facility] [employer]2016-12-22 02:08:00 Test Item Value Reference Range Interpretation Comments Troponin-T (test code 0.061 See_Comment [Auto mated message] The = Troponin-T) system which g enerated this result transmit rohit reference range : <=0.100. The reference r leo was not used to interpr et this result as reji l/abnormal. [employer]2016-12-22 02:08:00 Test Item Value Reference Range Interpretation Comments Total CK (test code = Total CK) 159 12-191 [facility] [employer]2016-12-22 02:08:00 Test Item Value Reference Range Interpretation Comments Troponin-I (test code no gt See_Comment [Auto mated message] The = Troponin-I) system which g enerated this result transmit rohit reference range : <=0.40. The reference r leo was not used to interpr et this result as reji l/abnormal. [employer]2016-12-22 02:08:00 Test Item Value Reference Range Interpretation Comments Bili Total (test code = Bili Total) 0.2 0.2-1.3 [facility] [employer]2016-12-22 02:08:00 Test Item Value Reference Range Interpretation Comments Bili Direct (test code 0.1 See_Comment [Aut omated message] The = Bili Direct) system which generated this result tra nsmitted reference range : <=0.3. The reference r leo was not used to int erpret this result as reji l/abnormal. [employer]2016-12-22 02:08:00 Test Item Value Reference Range Interpretation Comments Bili Indirect (test 0.1 See_Comment [Automa rohit message] The code = Bili Indirect) system which generated this result tra nsmitted reference range : <=1.0. The reference r leo was not used to int erpret this result as normal/abnormal . [facility] [employer] [id number] 02:08:00 Test Item Value Reference Range Interpretation Comments Total Protein (test code = Total 5.7 6.4-8.4 Protein) [facility]Roozz.[facility] [id number] 02:08:00 Test Item Value Reference Range Interpretation Comments A/G Ratio (test code = A/G Ratio) 0.5 0.7-1.6 [facility] [employer] [id number] 02:08:00 Test Item Value Reference Range Interpretation Comments Albumin Lvl (test code = Albumin Lvl) 1.8 3.5-5.0 [facility] [employer] [id number] 02:08:00 Test Item Value Reference Range Interpretation Comments Globulin (test code = Globulin) 3.9 2.7-4.2 [facility] [employer] [id number] 02:08:00 Test Item Value Reference Range Interpretation Comments Alk Phos (test code = Alk Phos) 99 39-136 [facility] [employer] [id number] 02:08:00 Test Item Value Reference Range Interpretation Comments AST (test code = AST) 21 See_Comment [Auto mated message] The system which ge nerated this result transmit rohit reference range : <=37. The reference range was not used to interpr et this result as reji l/abnormal. [facility] [employer]2016-12-22 02:08:00 Test Item Value Reference Range Interpretation Comments ALT (test code = ALT) 17 See_Comment [Auto mated message] The system which ge nerated this result transmit rohit reference range : <=65. The reference range was not used to interpr et this result as reji l/abnormal. [facility] [employer] [id number] 02:08:00 Test Item Value Reference Range Interpretation Comments UDS Note (test code = See Note *NA*(06/10/16 UDS Note) 8:08 PM) [facility] [employer] [id number] 02:08:00 Test Item Value Reference Range Interpretation Comments U Propoxyph Scr (test Negative *NA*(06/10/16 code = U Propoxyph Scr) 8:08 PM) [facility] [id number] 02:08:00 Test Item Value Reference Range Interpretation Comments U Opiate Scr (test Negative *NA*(06/10/16 code = U Opiate Scr) 8:08 PM) [facility] [id number] 02:08:00 Test Item Value Reference Range Interpretation Comments U Methadone Scr (test Negative *NA*(06/10/16 code = U Methadone Scr) 8:08 PM) [facility] [id number] 02:08:00 Test Item Value Reference Range Interpretation Comments U Phencyc Scr (test Negative *NA*(06/10/16 code = U Phencyc Scr) 8:08 PM) [facility] [id number] 02:08:00 Test Item Value Reference Range Interpretation Comments U Cannab Scr (test Negative *NA*(06/10/16 code = U Cannab Scr) 8:08 PM) [facility] [id number] 02:08:00 Test Item Value Reference Range Interpretation Comments U Amph Scr (test code Negative *NA*(06/10/16 = U Amph Scr) 8:08 PM) [facility] [id number] 02:08:00 Test Item Value Reference Range Interpretation Comments U Kelly Scr (test code Negative *NA*(06/10/16 = U Kelly Scr) 8:08 PM) [facility] [id number] 02:08:00 Test Item Value Reference Range Interpretation Comments U Benzodia Scr (test Negative *NA*(06/10/16 code = U Benzodia Scr) 8:08 PM) [facility] [id number] 02:08:00 Test Item Value Reference Range Interpretation Comments U Cocaine Scr (test Negative *NA*(06/10/16 code = U Cocaine Scr) 8:08 PM) [facility] [id number] 02:08:00 Test Item Value Reference Range Interpretation Comments LDL (Calculated) (test code = LDL 75 (Calculated)) [facility] [id number] 02:08:00 Test Item Value Reference Range Interpretation Comments VLDL (test code = VLDL) 27 [facility] [id number] 02:08:00 Test Item Value Reference Range Interpretation Comments Chol (test code = Chol) 133 [facility] ResourcesAmabbgiNIDYFV8157-00-58 02:08:00 Test Item Value Reference Range Interpretation Comments Trig (test code = Trig) 133 [facility] [id number] 02:08:00 Test Item Value Reference Range Interpretation Comments CHD Risk (test code = CHD Risk) 4.29 3.90-5.80 [facility] [id number] 02:08:00 Test Item Value Reference Range Interpretation Comments HDL (test code = HDL) 31 [facility] AND [id number] 02:08:00 Test Item Value Reference Range Interpretation Comments UA Urobilinogen (test code = UA <=1.0 mg/dL 0.1-1.0 Urobilinogen) [facility] AND [id number] 02:08:00 Test Item Value Reference Range Interpretation Comments UA Ketones (test code = UA Negative mg/dL Ketones) [facility] AND [id number] 02:08:00 Test Item Value Reference Range Interpretation Comments UA Glucose (test code = UA Glucose) 300 mg/dL [facility] AND [id number] 02:08:00 Test Item Value Reference Range Interpretation Comments UA Protein (test code = UA >=300 mg/dL Protein) [facility] AND [id number] 02:08:00 Test Item Value Reference Range Interpretation Comments UA pH (test code = UA pH) 6.0 5.0-8.0 [facility] AND [id number] 02:08:00 Test Item Value Reference Range Interpretation Comments UA Nitrite (test code Negative (06/10/16 8:08 = UA Nitrite) PM) [facility] AND [id number] 02:08:00 Test Item Value Reference Range Interpretation Comments UA Blood (test code = Trace *ABN*(06/10/16 UA Blood) 8:08 PM) [facility] AND [id number] 02:08:00 Test Item Value Reference Range Interpretation Comments UA Bili (test code = Negative *NA*(06/10/16 UA Bili) 8:08 PM) [facility] AND [id number] 02:08:00 Test Item Value Reference Range Interpretation Comments UA Mucus (test code = UA Mucus) Few /LPF [facility] [id number] 02:08:00 Test Item Value Reference Range Interpretation Comments UA RBC (test code = 4 See_Comment [Automa rohit message] The UA RBC) system which ge nerated this result transmit rohit reference range : <=2. The reference range was not used to interpr et this result as reji l/abnormal. [facility] AND [id number] 02:08:00 Test Item Value Reference Range Interpretation Comments UA Sq Epi (test code = UA Sq Epi) Few /LPF [facility] [id number] 02:08:00 Test Item Value Reference Range Interpretation Comments UA WBC (test code = 5 See_Comment [Automa rohit message] The UA WBC) system which ge nerated this result transmit rohit reference range : <=5. The reference range was not used to interpr et this result as reji l/abnormal. [facility] [id number] 02:08:00 Test Item Value Reference Range Interpretation Comments UA Leuk Est (test code Small *ABN*(06/10/16 = UA Leuk Est) 8:08 PM) [facility] [id number] 02:08:00 Test Item Value Reference Range Interpretation Comments UA Hyal Cast (test 1 See_Comment [Automat ed message] The code = UA Hyal Cast) system which generated this result transmit rohit reference range : <=2. The reference range was not used to interpr et this result as reji l/abnormal. [facility] [id number] 02:08:00 Test Item Value Reference Range Interpretation Comments UA Spec Grav (test code = UA Spec Grav) 1.009 [facility] [id number] 02:08:00 Test Item Value Reference Range Interpretation Comments UA Color (test code = Yellow *NA*(06/10/16 UA Color) 8:08 PM) [facility] [id number] 02:08:00 Test Item Value Reference Range Interpretation Comments UA Turbidity (test code = Clear (06/10/16 8:08 UA Turbidity) PM) [facility] [id number] 02:08:00 Test Item Value Reference Range Interpretation Comments U Preg (test code = U Negative (06/10/16 8:08 Preg) PM) [facility] [id number] 02:08:00 Test Item Value Reference Range Interpretation Comments U Protein (test code = U Protein) 375.4 [facility] [id number] 02:08:00 Test Item Value Reference Range Interpretation Comments U Prot/Creat (test code = U Prot/Creat) 5.4 [facility] [id number] 02:08:00 Test Item Value Reference Range Interpretation Comments U Creatinine (test code = U Creatinine) 69.80 [facility]annCARDIAC [id number] 02:08:00 Test Item Value Reference Range Interpretation Comments CK MB Index (test 1.8 See_Comment [Automate d message] The code = CK MB Index) system w [facility] generated this result transmit rohit reference range : <=2.5. The reference range was not used to interpr et this result as reji l/abnormal. [facility] stail[employer] technologiesAC [id number] 02:08:00 Test Item Value Reference Range Interpretation Comments CK MB (test code = CK MB) 2.9 0.5-3.6 [facility] [employer]CAR[employer]AC [id number] 02:08:00 Test Item Value Reference Range Interpretation Comments Troponin-T (test code 0.061 See_Comment [Auto mated message] The = Troponin-T) system which g enerated this result transmit rohit reference range : <=0.100. The reference r leo was not used to interpr et this result as reji l/abnormal. [facility] [employer]CAR[employer]AC [id number] 02:08:00 Test Item Value Reference Range Interpretation Comments Total CK (test code = Total CK) 159 12-191 [facility] Mega[employer]annCARDIAC [id number] 02:08:00 Test Item Value Reference Range Interpretation Comments Troponin-I (test code no gt See_Comment [Auto mated message] The = Troponin-I) system which g enerated this result transmit rohit reference range : <=0.40. The reference r leo was not used to interpr et this result as reji l/abnormal. [facility] [employer] [id number] 02:08:00 Test Item Value Reference Range Interpretation Comments Bili Total (test code = Bili Total) 0.2 0.2-1.3 [place] [id number] 02:08:00 Test Item Value Reference Range Interpretation Comments Bili Direct (test code 0.1 See_Comment [Aut omated message] The = Bili Direct) system which generated this result tra nsmitted reference range : <=0.3. The reference r leo was not used to int erpret this result as reji l/abnormal. [place] [id number] 02:08:00 Test Item Value Reference Range Interpretation Comments Bili Indirect (test 0.1 See_Comment [Automa rohit message] The code = Bili Indirect) system which generated this result tra nsmitted reference range : <=1.0. The reference r leo was not used to int erpret this result as normal/abnormal . [place] [id number] 02:08:00 Test Item Value Reference Range Interpretation Comments Total Protein (test code = Total 5.7 6.4-8.4 Protein) [place] [id number] 02:08:00 Test Item Value Reference Range Interpretation Comments A/G Ratio (test code = A/G Ratio) 0.5 0.7-1.6 [place] [id number] 02:08:00 Test Item Value Reference Range Interpretation Comments Albumin Lvl (test code = Albumin Lvl) 1.8 3.5-5.0 [place] [id number] 02:08:00 Test Item Value Reference Range Interpretation Comments Globulin (test code = Globulin) 3.9 2.7-4.2 [place] [id number] 02:08:00 Test Item Value Reference Range Interpretation Comments Alk Phos (test code = Alk Phos) 99 39-136 [facility]2016-12-22 02:08:00 Test Item Value Reference Range Interpretation Comments AST (test code = AST) 21 See_Comment [Auto mated message] The system which ge nerated this result transmit rohit reference range : <=37. The reference range was not used to interpr et this result as reji l/abnormal. [place] [id number] 02:08:00 Test Item Value Reference Range Interpretation Comments ALT (test code = ALT) 17 See_Comment [Auto mated message] The system which ge nerated this result transmit rohit reference range : <=65. The reference range was not used to interpr et this result as reji l/abnormal. [facility] [id number] 02:08:00 Test Item Value Reference Range Interpretation Comments UDS Note (test code = See Note *NA*(06/10/16 UDS Note) 8:08 PM) [facility] [id number] 02:08:00 Test Item Value Reference Range Interpretation Comments U Propoxyph Scr (test Negative *NA*(06/10/16 code = U Propoxyph Scr) 8:08 PM) [facility] [id number] 02:08:00 Test Item Value Reference Range Interpretation Comments U Opiate Scr (test Negative *NA*(06/10/16 code = U Opiate Scr) 8:08 PM) [facility] [id number] 02:08:00 Test Item Value Reference Range Interpretation Comments U Methadone Scr (test Negative *NA*(06/10/16 code = U Methadone Scr) 8:08 PM) [facility] [id number] 02:08:00 Test Item Value Reference Range Interpretation Comments U Phencyc Scr (test Negative *NA*(06/10/16 code = U Phencyc Scr) 8:08 PM) [facility] [id number] 02:08:00 Test Item Value Reference Range Interpretation Comments U Cannab Scr (test Negative *NA*(06/10/16 code = U Cannab Scr) 8:08 PM) [facility] [id number] 02:08:00 Test Item Value Reference Range Interpretation Comments U Amph Scr (test code Negative *NA*(06/10/16 = U Amph Scr) 8:08 PM) [facility] [id number] 02:08:00 Test Item Value Reference Range Interpretation Comments U Kelly Scr (test code Negative *NA*(06/10/16 = U Kelly Scr) 8:08 PM) [facility] [id number] 02:08:00 Test Item Value Reference Range Interpretation Comments U Benzodia Scr (test Negative *NA*(06/10/16 code = U Benzodia Scr) 8:08 PM) [facility] [id number] 02:08:00 Test Item Value Reference Range Interpretation Comments U Cocaine Scr (test Negative *NA*(06/10/16 code = U Cocaine Scr) 8:08 PM) [facility] [id number] 02:08:00 Test Item Value Reference Range Interpretation Comments LDL (Calculated) (test code = LDL 75 (Calculated)) [facility] [id number] 02:08:00 Test Item Value Reference Range Interpretation Comments VLDL (test code = VLDL) 27 [facility] [id number] 02:08:00 Test Item Value Reference Range Interpretation Comments Chol (test code = Chol) 133 [facility] [id number] 02:08:00 Test Item Value Reference Range Interpretation Comments Trig (test code = Trig) 133 [facility] [id number] 02:08:00 Test Item Value Reference Range Interpretation Comments CHD Risk (test code = CHD Risk) 4.29 3.90-5.80 [facility] DnhuoukGHPMDY6125-09-30 02:08:00 Test Item Value Reference Range Interpretation Comments HDL (test code = HDL) 31 [facility] [id number] 02:08:00 Test Item Value Reference Range Interpretation Comments UA Urobilinogen (test code = UA <=1.0 mg/dL 0.1-1.0 Urobilinogen) [facility] [id number] 02:08:00 Test Item Value Reference Range Interpretation Comments UA Ketones (test code = UA Negative mg/dL Ketones) [facility] [id number] 02:08:00 Test Item Value Reference Range Interpretation Comments UA Glucose (test code = UA Glucose) 300 mg/dL [facility] [id number] 02:08:00 Test Item Value Reference Range Interpretation Comments UA Protein (test code = UA >=300 mg/dL Protein) [facility] [id number] 02:08:00 Test Item Value Reference Range Interpretation Comments UA pH (test code = UA pH) 6.0 5.0-8.0 [facility] [id number] 02:08:00 Test Item Value Reference Range Interpretation Comments UA Nitrite (test code Negative (06/10/16 8:08 = UA Nitrite) PM) [facility] AND [id number] 02:08:00 Test Item Value Reference Range Interpretation Comments UA Blood (test code = Trace *ABN*(06/10/16 UA Blood) 8:08 PM) [facility] AND [id number] 02:08:00 Test Item Value Reference Range Interpretation Comments UA Bili (test code = Negative *NA*(06/10/16 UA Bili) 8:08 PM) [facility] AND [id number] 02:08:00 Test Item Value Reference Range Interpretation Comments UA Mucus (test code = UA Mucus) Few /LPF [facility] AND [id number] 02:08:00 Test Item Value Reference Range Interpretation Comments UA RBC (test code = 4 See_Comment [Automa rohit message] The UA RBC) system which ge nerated this result transmit rohit reference range : <=2. The reference range was not used to interpr et this result as reji l/abnormal. [facility] AND [id number] 02:08:00 Test Item Value Reference Range Interpretation Comments UA Sq Epi (test code = UA Sq Epi) Few /LPF [facility] AND [id number] 02:08:00 Test Item Value Reference Range Interpretation Comments UA WBC (test code = 5 See_Comment [Automa rohit message] The UA WBC) system which ge nerated this result transmit rohit reference range : <=5. The reference range was not used to interpr et this result as reji l/abnormal. [facility] AND [id number] 02:08:00 Test Item Value Reference Range Interpretation Comments UA Leuk Est (test code Small *ABN*(06/10/16 = UA Leuk Est) 8:08 PM) [facility] AND [id number] 02:08:00 Test Item Value Reference Range Interpretation Comments UA Hyal Cast (test 1 See_Comment [Automat ed message] The code = UA Hyal Cast) system which generated this result transmit rohit reference range : <=2. The reference range was not used to interpr et this result as reji l/abnormal. [facility] AND [id number] 02:08:00 Test Item Value Reference Range Interpretation Comments UA Spec Grav (test code = UA Spec Grav) 1.009 [facility] AND [id number] 02:08:00 Test Item Value Reference Range Interpretation Comments UA Color (test code = Yellow *NA*(06/10/16 UA Color) 8:08 PM) [facility] AND [id number] 02:08:00 Test Item Value Reference Range Interpretation Comments UA Turbidity (test code = Clear (06/10/16 8:08 UA Turbidity) PM) [facility] [id number] 02:08:00 Test Item Value Reference Range Interpretation Comments U Preg (test code = U Negative (06/10/16 8:08 Preg) PM) [facility] [id number] 02:08:00 Test Item Value Reference Range Interpretation Comments U Protein (test code = U Protein) 375.4 [facility] [id number] 02:08:00 Test Item Value Reference Range Interpretation Comments U Prot/Creat (test code = U Prot/Creat) 5.4 [facility] [id number] 02:08:00 Test Item Value Reference Range Interpretation Comments U Creatinine (test code = U Creatinine) 69.80 [facility]ARD[facility]AC [id number] 02:08:00 Test Item Value Reference Range Interpretation Comments CK MB Index (test 1.8 See_Comment [Automate d message] The code = CK MB Index) system w [facility] generated this result transmit rohit reference range : <=2.5. The reference range was not used to interpr et this result as reji l/abnormal. [facility] [id number] 02:08:00 Test Item Value Reference Range Interpretation Comments CK MB (test code = CK MB) 2.9 0.5-3.6 [facility] [id number] 02:08:00 Test Item Value Reference Range Interpretation Comments Troponin-T (test code 0.061 See_Comment [Auto mated message] The = Troponin-T) system which g enerated this result transmit rohit reference range : <=0.100. The reference r leo was not used to interpr et this result as reji l/abnormal. [facility]annCARDIAC [id number] 02:08:00 Test Item Value Reference Range Interpretation Comments Total CK (test code = Total CK) 159 12-191 [facility] [id number] 02:08:00 Test Item Value Reference Range Interpretation Comments Troponin-I (test code no gt See_Comment [Auto mated message] The = Troponin-I) system which g enerated this result transmit rohit reference range : <=0.40. The reference r leo was not used to interpr et this result as reji l/abnormal. [facility] [id number] 02:08:00 Test Item Value Reference Range Interpretation Comments Bili Total (test code = Bili Total) 0.2 0.2-1.3 [facility]2016-12-22 02:08:00 Test Item Value Reference Range Interpretation Comments Bili Direct (test code 0.1 See_Comment [Aut omated message] The = Bili Direct) system which generated this result tra nsmitted reference range : <=0.3. The reference r leo was not used to int erpret this result as reji l/abnormal. [facility] Resources[facility] [employer] [id number] 02:08:00 Test Item Value Reference Range Interpretation Comments Bili Indirect (test 0.1 See_Comment [Automa rohit message] The code = Bili Indirect) system which generated this result tra nsmitted reference range : <=1.0. The reference r leo was not used to int erpret this result as normal/abnormal . [facility] [id number] 02:08:00 Test Item Value Reference Range Interpretation Comments Total Protein (test code = Total 5.7 6.4-8.4 Protein) [facility] [employer] [id number] 02:08:00 Test Item Value Reference Range Interpretation Comments A/G Ratio (test code = A/G Ratio) 0.5 0.7-1.6 [facility]2016-12-22 02:08:00 Test Item Value Reference Range Interpretation Comments Albumin Lvl (test code = Albumin Lvl) 1.8 3.5-5.0 [facility] [employer] [employer] [id number] 02:08:00 Test Item Value Reference Range Interpretation Comments Globulin (test code = Globulin) 3.9 2.7-4.2 [facility] [id number] 02:08:00 Test Item Value Reference Range Interpretation Comments Alk Phos (test code = Alk Phos) 99 39-136 [facility] [employer] [id number] 02:08:00 Test Item Value Reference Range Interpretation Comments AST (test code = AST) 21 See_Comment [Auto mated message] The system which ge nerated this result transmit rohit reference range : <=37. The reference range was not used to interpr et this result as reji l/abnormal. [facility] [employer] [id number] 02:08:00 Test Item Value Reference Range Interpretation Comments ALT (test code = ALT) 17 See_Comment [Auto mated message] The system which ge nerated this result transmit rohit reference range : <=65. The reference range was not used to interpr et this result as reji l/abnormal. [facility] [id number] 02:08:00 Test Item Value Reference Range Interpretation Comments UDS Note (test code = See Note *NA*(06/10/16 UDS Note) 8:08 PM) [facility] [employer] [id number] 02:08:00 Test Item Value Reference Range Interpretation Comments U Propoxyph Scr (test Negative *NA*(06/10/16 code = U Propoxyph Scr) 8:08 PM) [facility] [id number] 02:08:00 Test Item Value Reference Range Interpretation Comments U Opiate Scr (test Negative *NA*(06/10/16 code = U Opiate Scr) 8:08 PM) [facility] [employer] [id number] 02:08:00 Test Item Value Reference Range Interpretation Comments U Methadone Scr (test Negative *NA*(06/10/16 code = U Methadone Scr) 8:08 PM) [facility] [id number] 02:08:00 Test Item Value Reference Range Interpretation Comments U Phencyc Scr (test Negative *NA*(06/10/16 code = U Phencyc Scr) 8:08 PM) [facility] [id number] 02:08:00 Test Item Value Reference Range Interpretation Comments U Cannab Scr (test Negative *NA*(06/10/16 code = U Cannab Scr) 8:08 PM) [facility] [id number] 02:08:00 Test Item Value Reference Range Interpretation Comments U Amph Scr (test code Negative *NA*(06/10/16 = U Amph Scr) 8:08 PM) [facility] [id number] 02:08:00 Test Item Value Reference Range Interpretation Comments U Kelly Scr (test code Negative *NA*(06/10/16 = U Kelly Scr) 8:08 PM) [facility] [id number] 02:08:00 Test Item Value Reference Range Interpretation Comments U Benzodia Scr (test Negative *NA*(06/10/16 code = U Benzodia Scr) 8:08 PM) [facility] [id number] 02:08:00 Test Item Value Reference Range Interpretation Comments U Cocaine Scr (test Negative *NA*(06/10/16 code = U Cocaine Scr) 8:08 PM) [facility] [id number] 02:08:00 Test Item Value Reference Range Interpretation Comments LDL (Calculated) (test code = LDL 75 (Calculated)) [facility] [id number] 02:08:00 Test Item Value Reference Range Interpretation Comments VLDL (test code = VLDL) 27 [facility] [id number] 02:08:00 Test Item Value Reference Range Interpretation Comments Chol (test code = Chol) 133 [facility] [id number] 02:08:00 Test Item Value Reference Range Interpretation Comments Trig (test code = Trig) 133 [facility] [id number] 02:08:00 Test Item Value Reference Range Interpretation Comments CHD Risk (test code = CHD Risk) 4.29 3.90-5.80 [facility] [id number] 02:08:00 Test Item Value Reference Range Interpretation Comments HDL (test code = HDL) 31 [facility] [id number] 02:08:00 Test Item Value Reference Range Interpretation Comments UA Urobilinogen (test code = UA <=1.0 mg/dL 0.1-1.0 Urobilinogen) [facility] [id number] 02:08:00 Test Item Value Reference Range Interpretation Comments UA Ketones (test code = UA Negative mg/dL Ketones) [facility] [id number] 02:08:00 Test Item Value Reference Range Interpretation Comments UA Glucose (test code = UA Glucose) 300 mg/dL [facility] AND [id number] 02:08:00 Test Item Value Reference Range Interpretation Comments UA Protein (test code = UA >=300 mg/dL Protein) [facility] AND [id number] 02:08:00 Test Item Value Reference Range Interpretation Comments UA pH (test code = UA pH) 6.0 5.0-8.0 [facility] AND [id number] 02:08:00 Test Item Value Reference Range Interpretation Comments UA Nitrite (test code Negative (06/10/16 8:08 = UA Nitrite) PM) [facility] AND [id number] 02:08:00 Test Item Value Reference Range Interpretation Comments UA Blood (test code = Trace *ABN*(06/10/16 UA Blood) 8:08 PM) [facility] AND [id number] 02:08:00 Test Item Value Reference Range Interpretation Comments UA Bili (test code = Negative *NA*(06/10/16 UA Bili) 8:08 PM) [facility] AND [id number] 02:08:00 Test Item Value Reference Range Interpretation Comments UA Mucus (test code = UA Mucus) Few /LPF [facility] AND [id number] 02:08:00 Test Item Value Reference Range Interpretation Comments UA RBC (test code = 4 See_Comment [Automa rohit message] The UA RBC) system which ge nerated this result transmit rohit reference range : <=2. The reference range was not used to interpr et this result as reji l/abnormal. [facility] AND [id number] 02:08:00 Test Item Value Reference Range Interpretation Comments UA Sq Epi (test code = UA Sq Epi) Few /LPF [facility] AND [id number] 02:08:00 Test Item Value Reference Range Interpretation Comments UA WBC (test code = 5 See_Comment [Automa rohit message] The UA WBC) system which ge nerated this result transmit rohit reference range : <=5. The reference range was not used to interpr et this result as reji l/abnormal. [facility] AND [id number] 02:08:00 Test Item Value Reference Range Interpretation Comments UA Leuk Est (test code Small *ABN*(06/10/16 = UA Leuk Est) 8:08 PM) [facility] [id number] 02:08:00 Test Item Value Reference Range Interpretation Comments UA Hyal Cast (test 1 See_Comment [Automat ed message] The code = UA Hyal Cast) system which generated this result transmit rohit reference range : <=2. The reference range was not used to interpr et this result as reji l/abnormal. [facility] [id number] 02:08:00 Test Item Value Reference Range Interpretation Comments UA Spec Grav (test code = UA Spec Grav) 1.009 [facility] [id number] 02:08:00 Test Item Value Reference Range Interpretation Comments UA Color (test code = Yellow *NA*(06/10/16 UA Color) 8:08 PM) [facility] [id number] 02:08:00 Test Item Value Reference Range Interpretation Comments UA Turbidity (test code = Clear (06/10/16 8:08 UA Turbidity) PM) [facility] [id number] 02:08:00 Test Item Value Reference Range Interpretation Comments U Preg (test code = U Negative (06/10/16 8:08 Preg) PM) [facility] [id number] 02:08:00 Test Item Value Reference Range Interpretation Comments U Protein (test code = U Protein) 375.4 [facility] [id number] 02:08:00 Test Item Value Reference Range Interpretation Comments U Prot/Creat (test code = U Prot/Creat) 5.4 [facility] [id number] 02:08:00 Test Item Value Reference Range Interpretation Comments U Creatinine (test code = U Creatinine) 69.80 [facility] [id number] 02:08:00 Test Item Value Reference Range Interpretation Comments CK MB Index (test 1.8 See_Comment [Automate d message] The code = CK MB Index) system w [facility] generated this result transmit rohit reference range : <=2.5. The reference range was not used to interpr et this result as reji l/abnormal. [facility]annCARD[facility] [id number] 02:08:00 Test Item Value Reference Range Interpretation Comments CK MB (test code = CK MB) 2.9 0.5-3.6 [facility] [employer]2016-12-22 02:08:00 Test Item Value Reference Range Interpretation Comments Troponin-T (test code 0.061 See_Comment [Auto mated message] The = Troponin-T) system which g enerated this result transmit rohit reference range : <=0.100. The reference r leo was not used to interpr et this result as reji l/abnormal. [facility] [employer]2016-12-22 02:08:00 Test Item Value Reference Range Interpretation Comments Total CK (test code = Total CK) 159 12-191 [facility] [employer]2016-12-22 02:08:00 Test Item Value Reference Range Interpretation Comments Troponin-I (test code no gt See_Comment [Auto mated message] The = Troponin-I) system which g enerated this result transmit rohit reference range : <=0.40. The reference r leo was not used to interpr et this result as reji l/abnormal. [facility] [employer]2016-12-22 02:08:00 Test Item Value Reference Range Interpretation Comments Bili Total (test code = Bili Total) 0.2 0.2-1.3 [facility] [employer]2016-12-22 02:08:00 Test Item Value Reference Range Interpretation Comments Bili Direct (test code 0.1 See_Comment [Aut omated message] The = Bili Direct) system which generated this result tra nsmitted reference range : <=0.3. The reference r leo was not used to int erpret this result as reji l/abnormal. [facility] [employer]2016-12-22 02:08:00 Test Item Value Reference Range Interpretation Comments Bili Indirect (test 0.1 See_Comment [Automa rohit message] The code = Bili Indirect) system which generated this result tra nsmitted reference range : <=1.0. The reference r leo was not used to int erpret this result as normal/abnormal . [facility] [employer]2016-12-22 02:08:00 Test Item Value Reference Range Interpretation Comments Total Protein (test code = Total 5.7 6.4-8.4 Protein) [facility] [employer]2016-12-22 02:08:00 Test Item Value Reference Range Interpretation Comments A/G Ratio (test code = A/G Ratio) 0.5 0.7-1.6 [facility] [employer] [id number] 02:08:00 Test Item Value Reference Range Interpretation Comments Albumin Lvl (test code = Albumin Lvl) 1.8 3.5-5.0 [facility] [id number] 02:08:00 Test Item Value Reference Range Interpretation Comments Globulin (test code = Globulin) 3.9 2.7-4.2 [facility] [employer] [id number] 02:08:00 Test Item Value Reference Range Interpretation Comments Alk Phos (test code = Alk Phos) 99 39-136 [facility] [employer] [id number] 02:08:00 Test Item Value Reference Range Interpretation Comments AST (test code = AST) 21 See_Comment [Auto mated message] The system which ge nerated this result transmit rohit reference range : <=37. The reference range was not used to interpr et this result as reji l/abnormal. [facility] [employer] [id number] 02:08:00 Test Item Value Reference Range Interpretation Comments ALT (test code = ALT) 17 See_Comment [Auto mated message] The system which ge nerated this result transmit rohit reference range : <=65. The reference range was not used to interpr et this result as reji l/abnormal. [facility]DataMent[facility] [id number] 02:08:00 Test Item Value Reference Range Interpretation Comments UDS Note (test code = See Note *NA*(06/10/16 UDS Note) 8:08 PM) [facility] [employer] [id number] 02:08:00 Test Item Value Reference Range Interpretation Comments U Propoxyph Scr (test Negative *NA*(06/10/16 code = U Propoxyph Scr) 8:08 PM) [facility] DallasqLearningDRUG [id number] 02:08:00 Test Item Value Reference Range Interpretation Comments U Opiate Scr (test Negative *NA*(06/10/16 code = U Opiate Scr) 8:08 PM) [facility] [id number] 02:08:00 Test Item Value Reference Range Interpretation Comments U Methadone Scr (test Negative *NA*(06/10/16 code = U Methadone Scr) 8:08 PM) [facility] [id number] 02:08:00 Test Item Value Reference Range Interpretation Comments U Phencyc Scr (test Negative *NA*(06/10/16 code = U Phencyc Scr) 8:08 PM) [facility] [id number] 02:08:00 Test Item Value Reference Range Interpretation Comments U Cannab Scr (test Negative *NA*(06/10/16 code = U Cannab Scr) 8:08 PM) [facility]annDR[facility] [id number] 02:08:00 Test Item Value Reference Range Interpretation Comments U Amph Scr (test code Negative *NA*(06/10/16 = U Amph Scr) 8:08 PM) [facility]ann[facility] [id number] 02:08:00 Test Item Value Reference Range Interpretation Comments U Kelly Scr (test code Negative *NA*(06/10/16 = U Kelly Scr) 8:08 PM) [facility] DallasannDR[facility] [id number] 02:08:00 Test Item Value Reference Range Interpretation Comments U Benzodia Scr (test Negative *NA*(06/10/16 code = U Benzodia Scr) 8:08 PM) [facility] [id number] 02:08:00 Test Item Value Reference Range Interpretation Comments U Cocaine Scr (test Negative *NA*(06/10/16 code = U Cocaine Scr) 8:08 PM) [facility] [id number] 02:08:00 Test Item Value Reference Range Interpretation Comments LDL (Calculated) (test code = LDL 75 (Calculated)) [facility] [id number] 02:08:00 Test Item Value Reference Range Interpretation Comments VLDL (test code = VLDL) 27 [facility] [id number] 02:08:00 Test Item Value Reference Range Interpretation Comments Chol (test code = Chol) 133 [facility] [id number] 02:08:00 Test Item Value Reference Range Interpretation Comments Trig (test code = Trig) 133 [facility] [id number] 02:08:00 Test Item Value Reference Range Interpretation Comments CHD Risk (test code = CHD Risk) 4.29 3.90-5.80 [facility] [id number] 02:08:00 Test Item Value Reference Range Interpretation Comments HDL (test code = HDL) 31 [facility] AND [id number] 02:08:00 Test Item Value Reference Range Interpretation Comments UA Urobilinogen (test code = UA <=1.0 mg/dL 0.1-1.0 Urobilinogen) [facility] AND [id number] 02:08:00 Test Item Value Reference Range Interpretation Comments UA Ketones (test code = UA Negative mg/dL Ketones) [facility] AND [id number] 02:08:00 Test Item Value Reference Range Interpretation Comments UA Glucose (test code = UA Glucose) 300 mg/dL [facility] AND [id number] 02:08:00 Test Item Value Reference Range Interpretation Comments UA Protein (test code = UA >=300 mg/dL Protein) [facility] AND [id number] 02:08:00 Test Item Value Reference Range Interpretation Comments UA pH (test code = UA pH) 6.0 5.0-8.0 [facility] AND [id number] 02:08:00 Test Item Value Reference Range Interpretation Comments UA Nitrite (test code Negative (06/10/16 8:08 = UA Nitrite) PM) [facility] AND [id number] 02:08:00 Test Item Value Reference Range Interpretation Comments UA Blood (test code = Trace *ABN*(06/10/16 UA Blood) 8:08 PM) [facility] AND [id number] 02:08:00 Test Item Value Reference Range Interpretation Comments UA Bili (test code = Negative *NA*(06/10/16 UA Bili) 8:08 PM) [facility] AND [id number] 02:08:00 Test Item Value Reference Range Interpretation Comments UA Mucus (test code = UA Mucus) Few /LPF [facility] AND [id number] 02:08:00 Test Item Value Reference Range Interpretation Comments UA RBC (test code = 4 See_Comment [Automa rohit message] The UA RBC) system which ge nerated this result transmit rohit reference range : <=2. The reference range was not used to interpr et this result as reji l/abnormal. [facility] AND [id number] 02:08:00 Test Item Value Reference Range Interpretation Comments UA Sq Epi (test code = UA Sq Epi) Few /LPF [facility] AND [id number] 02:08:00 Test Item Value Reference Range Interpretation Comments UA WBC (test code = 5 See_Comment [Automa rohit message] The UA WBC) system which ge nerated this result transmit rohit reference range : <=5. The reference range was not used to interpr et this result as reji l/abnormal. [facility] AND [id number] 02:08:00 Test Item Value Reference Range Interpretation Comments UA Leuk Est (test code Small *ABN*(06/10/16 = UA Leuk Est) 8:08 PM) [facility] AND [id number] 02:08:00 Test Item Value Reference Range Interpretation Comments UA Hyal Cast (test 1 See_Comment [Automat ed message] The code = UA Hyal Cast) system which generated this result transmit rohit reference range : <=2. The reference range was not used to interpr et this result as reji l/abnormal. [facility] AND [id number] 02:08:00 Test Item Value Reference Range Interpretation Comments UA Spec Grav (test code = UA Spec Grav) 1.009 [facility] AND [id number] 02:08:00 Test Item Value Reference Range Interpretation Comments UA Color (test code = Yellow *NA*(06/10/16 UA Color) 8:08 PM) [facility] AND [id number] 02:08:00 Test Item Value Reference Range Interpretation Comments UA Turbidity (test code = Clear (06/10/16 8:08 UA Turbidity) PM) [facility]2016-12-22 02:08:00 Test Item Value Reference Range Interpretation Comments U Preg (test code = U Negative (06/10/16 8:08 Preg) PM) [facility]2016-12-22 02:08:00 Test Item Value Reference Range Interpretation Comments U Protein (test code = U Protein) 375.4 [facility]2016-12-22 02:08:00 Test Item Value Reference Range Interpretation Comments U Prot/Creat (test code = U Prot/Creat) 5.4 [facility]2016-12-22 02:08:00 Test Item Value Reference Range Interpretation Comments U Creatinine (test code = U Creatinine) 69.80 [facility] [employer] [id number] 16:53:00 Test Item Value Reference Range Interpretation Comments BNP (test code = BNP) 1135 [facility] [employer] [id number] 16:53:00 Test Item Value Reference Range Interpretation Comments Troponin-I (test code no gt See_Comment [Auto mated message] The = Troponin-I) system which g enerated this result transmit rohit reference range : <=0.40. The reference r leo was not used to interpr et this result as reji l/abnormal. [employer] [id number] 16:53:00 Test Item Value Reference Range Interpretation Comments BNP (test code = BNP) 1135 [facility] [employer] [id number] 16:53:00 Test Item Value Reference Range Interpretation Comments Troponin-I (test code no gt See_Comment [Auto mated message] The = Troponin-I) system which g enerated this result transmit rohit reference range : <=0.40. The reference r leo was not used to interpr et this result as reji l/abnormal. [facility] [employer] [id number] 16:53:00 Test Item Value Reference Range Interpretation Comments BNP (test code = BNP) 1135 [facility] [employer]CAR[employer]liteAC [id number] 16:53:00 Test Item Value Reference Range Interpretation Comments Troponin-I (test code no gt See_Comment [Auto mated message] The = Troponin-I) system which g enerated this result transmit rohit reference range : <=0.40. The reference r leo was not used to interpr et this result as reji l/abnormal. [facility] [employer] [id number] 16:53:00 Test Item Value Reference Range Interpretation Comments BNP (test code = BNP) 1135 [facility] [employer] [id number] 16:53:00 Test Item Value Reference Range Interpretation Comments Troponin-I (test code no gt See_Comment [Auto mated message] The = Troponin-I) system which g enerated this result transmit rohit reference range : <=0.40. The reference r leo was not used to interpr et this result as reji l/abnormal. [employer] [id number] 16:53:00 Test Item Value Reference Range Interpretation Comments BNP (test code = BNP) 1135 [facility] [id number] 16:53:00 Test Item Value Reference Range Interpretation Comments Troponin-I (test code no gt See_Comment [Auto mated message] The = Troponin-I) system which g enerated this result transmit rohit reference range : <=0.40. The reference r leo was not used to interpr et this result as reji l/abnormal. [facility] [id number] 13:02:00 Test Item Value Reference Range Interpretation Comments Lactic Acid WB (test code = Lactic Acid 0.9 0.5-2.2 WB) [facility] [employer] [id number] 13:02:00 Test Item Value Reference Range Interpretation Comments Lactic Acid WB (test code = Lactic Acid 0.9 0.5-2.2 WB) [facility]2015-01-06 13:02:00 Test Item Value Reference Range Interpretation Comments Lactic Acid WB (test code = Lactic Acid 0.9 0.5-2.2 WB) [facility] [id number] 13:02:00 Test Item Value Reference Range Interpretation Comments Lactic Acid WB (test code = Lactic Acid 0.9 0.5-2.2 WB) [facility] [id number] 13:02:00 Test Item Value Reference Range Interpretation Comments Lactic Acid WB (test code = Lactic Acid 0.9 0.5-2.2 WB) [facility]DF[facility]UDYE8712-22-37 12:29:44 Test Item Value Reference Range Interpretation Comments Valproic Acid Lvl (test code = Valproic 10 50-100 Acid Lvl) [id number] 12:29:44 Test Item Value Reference Range Interpretation Comments Valproic Acid Lvl (test code = Valproic 10 50-100 Acid Lvl) [facility] [id number] 12:29:44 Test Item Value Reference Range Interpretation Comments Valproic Acid Lvl (test code = Valproic 10 50-100 Acid Lvl) [facility] CenterWxpicfhTQGLZRENAG0667-01-52 12:29:44 Test Item Value Reference Range Interpretation Comments Valproic Acid Lvl (test code = Valproic 10 50-100 Acid Lvl) [facility] Re[id number] 12:29:44 Test Item Value Reference Range Interpretation Comments Valproic Acid Lvl (test code = Valproic 10 50-100 Acid Lvl) [place] [id number] 11:21:27 Test Item Value Reference Range Interpretation Comments hCG Tot (test code = hCG Tot) 1 [place] [id number] 11:21:27 Test Item Value Reference Range Interpretation Comments hCG Tot (test code = hCG Tot) 1 [place] [id number] 11:21:27 Test Item Value Reference Range Interpretation Comments hCG Tot (test code = hCG Tot) 1 [place] [id number] 11:21:27 Test Item Value Reference Range Interpretation Comments hCG Tot (test code = hCG Tot) 1 [place] [id number] 11:21:27 Test Item Value Reference Range Interpretation Comments hCG Tot (test code = hCG Tot) 1 [facility]2015-01-06 11:21:00 Test Item Value Reference Range Interpretation Comments Albumin Lvl (test code = Albumin Lvl) 3.2 3.5-5.0 [facility]2015-01-06 11:21:00 Test Item Value Reference Range Interpretation Comments Total Protein (test code = Total 6.6 6.4-8.4 Protein) [facility]2015-01-06 11:21:00 Test Item Value Reference Range Interpretation Comments Bili Total (test code = Bili Total) 0.6 0.2-1.3 [facility]2015-01-06 11:21:00 Test Item Value Reference Range Interpretation Comments Alk Phos (test code = Alk Phos) 59 39-136 [facility]2015-01-06 11:21:00 Test Item Value Reference Range Interpretation Comments AST (test code = AST) 11 See_Comment [Auto mated message] The system which ge nerated this result transmit rohit reference range : <=37. The reference range was not used to interpr et this result as reji l/abnormal. [facility]2015-01-06 11:21:00 Test Item Value Reference Range Interpretation Comments ALT (test code = ALT) 17 See_Comment [Auto mated message] The system which ge nerated this result transmit rohit reference range : <=65. The reference range was not used to interpr et this result as reji l/abnormal. [facility]2015-01-06 11:21:00 Test Item Value Reference Range Interpretation Comments eGFR (test code = eGFR) 99 [facility]2015-01-06 11:21:00 Test Item Value Reference Range Interpretation Comments Glucose Lvl (test code = Glucose Lvl) 314 70-99 [facility]2015-01-06 11:21:00 Test Item Value Reference Range Interpretation Comments Potassium Lvl (test code = Potassium 3.4 3.5-5.1 Lvl) [facility]2015-01-06 11:21:00 Test Item Value Reference Range Interpretation Comments BUN (test code = BUN) 11 7-22 [facility]2015-01-06 11:21:00 Test Item Value Reference Range Interpretation Comments Creatinine Lvl (test code = Creatinine 0.8 0.5-1.4 Lvl) [facility]2015-01-06 11:21:00 Test Item Value Reference Range Interpretation Comments Sodium Lvl (test code = Sodium Lvl) 134 135-145 [facility]2015-01-06 11:21:00 Test Item Value Reference Range Interpretation Comments Chloride Lvl (test code = Chloride Lvl) 94 95-109 [facility]2015-01-06 11:21:00 Test Item Value Reference Range Interpretation Comments Calcium Lvl (test code = Calcium Lvl) 9.1 8.5-10.5 [facility]2015-01-06 11:21:00 Test Item Value Reference Range Interpretation Comments CO2 (test code = CO2) 24 24-32 [facility]2015-01-06 11:21:00 Test Item Value Reference Range Interpretation Comments A/G Ratio (test code = A/G Ratio) 0.9 0.7-1.6 [facility]2015-01-06 11:21:00 Test Item Value Reference Range Interpretation Comments Globulin (test code = Globulin) 3.4 2.0-4.0 [facility]2015-01-06 11:21:00 Test Item Value Reference Range Interpretation Comments B/C Ratio (test code = B/C Ratio) 14 6-25 [facility]2015-01-06 11:21:00 Test Item Value Reference Range Interpretation Comments AGAP (test code = AGAP) 19.4 10.0-20.0 [facility]2015-01-06 11:21:00 Test Item Value Reference Range Interpretation Comments Lipase Lvl (test code = Lipase Lvl) 81 73-393 [facility]HisiubfNSMKKQSSVC7809-94-44 11:21:00 Test Item Value Reference Range Interpretation Comments Large Plt (test code = Large Plt) Slight [facility] Hospit[id number] 11:21:00 Test Item Value Reference Range Interpretation Comments Basophils # (test code 0.0 See_Comment [Aut omated message] The = Basophils #) system which generated this result tra nsmitted reference range : <=0.2. The reference r leo was not used to int erpret this result as normal/abnormal . [facility] HospitalEboxgxtCYODUNCEBV6843-34-16 11:21:00 Test Item Value Reference Range Interpretation Comments Anisocyte (test code = 1+ *ABN*(06/26/14 5:21 Anisocyte) AM) [facility] Hospit[id number] 11:21:00 Test Item Value Reference Range Interpretation Comments Monocytes # (test code 0.6 See_Comment [Aut omated message] The = Monocytes #) system which generated this result tra nsmitted reference range : <=0.8. The reference r leo was not used to int erpret this result as normal/abnormal . [facility] Hospit[id number] 11:21:00 Test Item Value Reference Range Interpretation Comments Eosinophils # (test code 0.1 See_Comment [A utomated message] The = Eosinophils #) system whic h generated this result tra nsmitted reference range : <=0.5. The reference r leo was not used to int erpret this result as normal/abnormal . [facility] HospitalEewpqtpRHKAZBTMFF1949-30-06 11:21:00 Test Item Value Reference Range Interpretation Comments Lymphocytes # (test code = Lymphocytes 2.5 1.0-5.5 #) [facility] HospitalOajeaknJWATJKKADD7993-88-89 11:21:00 Test Item Value Reference Range Interpretation Comments Segs (test code = Segs) 63.3 45.0-75.0 [facility] HospitalNrebvhbKKKPDCETJW8388-63-80 11:21:00 Test Item Value Reference Range Interpretation Comments Segs-Bands # (test code = Segs-Bands #) 5.6 1.5-8.1 [facility] HospitalMjtyhjkXJRKEMAVBG9176-77-67 11:21:00 Test Item Value Reference Range Interpretation Comments Basophils (test code = 0.0 See_Comment [Aut omated message] The Basophils) system which ge nerated this result tra nsmitted reference range : <=1.0. The reference r leo was not used to int erpret this result as normal/abnormal . [facility] HospitalQmplxatBQBESVEICX2639-15-55 11:21:00 Test Item Value Reference Range Interpretation Comments Eosinophils (test code = 0.9 See_Comment [A utomated message] The Eosinophils) system which ge nerated this result tra nsmitted reference range : <=4.0. The reference r leo was not used to int erpret this result as normal/abnormal . [facility] HospitalEoniyzvPDEMWDUJDC6517-83-19 11:21:00 Test Item Value Reference Range Interpretation Comments Monocytes (test code = Monocytes) 7.0 2.0-12.0 [facility] HospitalHsucfraCFSXGDFFMH7621-59-61 11:21:00 Test Item Value Reference Range Interpretation Comments Lymphocytes (test code = Lymphocytes) 28.8 20.0-40.0 [facility] HospitalEigjelqHRKMGCFTMH3956-45-13 11:21:00 Test Item Value Reference Range Interpretation Comments WBC (test code = WBC) 8.8 3.7-10.4 [facility] HospitalNlwxunySIKJWDNUAM5989-71-87 11:21:00 Test Item Value Reference Range Interpretation Comments RBC (test code = RBC) 5.19 4.20-5.40 [facility] HospitalUezbtvvDQCEXOLNFO9182-24-02 11:21:00 Test Item Value Reference Range Interpretation Comments Hgb (test code = Hgb) 14.4 12.0-16.0 [facility] HospitalBwncftsPLPTJBJAME7901-15-32 11:21:00 Test Item Value Reference Range Interpretation Comments Hct (test code = Hct) 43.1 36.0-48.0 [facility] HospitalQaoobknRFVCXYKMPG8209-32-94 11:21:00 Test Item Value Reference Range Interpretation Comments MCV (test code = MCV) 83.1 80.0-98.0 [facility] HospitalLrysrygMROGGMCOSZ7828-25-01 11:21:00 Test Item Value Reference Range Interpretation Comments MCH (test code = MCH) 27.8 pg 27.0-31.0 [facility] HospitalYvkbhfpSTMJDDULZF5088-21-24 11:21:00 Test Item Value Reference Range Interpretation Comments RDW (test code = RDW) 13.1 11.5-14.5 [facility] HospitalWwrjmnuDNLIHRNDEQ7373-89-39 11:21:00 Test Item Value Reference Range Interpretation Comments MCHC (test code = MCHC) 33.5 32.0-36.0 [facility] HospitalCfrlqkdDIPIWOJVNB2000-44-05 11:21:00 Test Item Value Reference Range Interpretation Comments Platelet (test code = Platelet) 201 133-450 [facility] HospitalBwiuzfsISIBWLZRAW1372-61-48 11:21:00 Test Item Value Reference Range Interpretation Comments MPV (test code = MPV) 10.4 7.4-10.4 [facility]2015-01-06 11:21:00 Test Item Value Reference Range Interpretation Comments Albumin Lvl (test code = Albumin Lvl) 3.2 3.5-5.0 [facility]2015-01-06 11:21:00 Test Item Value Reference Range Interpretation Comments Total Protein (test code = Total 6.6 6.4-8.4 Protein) [facility]2015-01-06 11:21:00 Test Item Value Reference Range Interpretation Comments Bili Total (test code = Bili Total) 0.6 0.2-1.3 [facility]2015-01-06 11:21:00 Test Item Value Reference Range Interpretation Comments Alk Phos (test code = Alk Phos) 59 39-136 [facility]2015-01-06 11:21:00 Test Item Value Reference Range Interpretation Comments AST (test code = AST) 11 See_Comment [Auto mated message] The system which ge nerated this result transmit roiht reference range : <=37. The reference range was not used to interpr et this result as reji l/abnormal. [facility]2015-01-06 11:21:00 Test Item Value Reference Range Interpretation Comments ALT (test code = ALT) 17 See_Comment [Auto mated message] The system which ge nerated this result transmit rohit reference range : <=65. The reference range was not used to interpr et this result as reji l/abnormal. [facility]2015-01-06 11:21:00 Test Item Value Reference Range Interpretation Comments eGFR (test code = eGFR) 99 [facility]2015-01-06 11:21:00 Test Item Value Reference Range Interpretation Comments Glucose Lvl (test code = Glucose Lvl) 314 70-99 [facility]2015-01-06 11:21:00 Test Item Value Reference Range Interpretation Comments Potassium Lvl (test code = Potassium 3.4 3.5-5.1 Lvl) [facility]2015-01-06 11:21:00 Test Item Value Reference Range Interpretation Comments BUN (test code = BUN) 11 7-22 [facility]2015-01-06 11:21:00 Test Item Value Reference Range Interpretation Comments Creatinine Lvl (test code = Creatinine 0.8 0.5-1.4 Lvl) [facility]2015-01-06 11:21:00 Test Item Value Reference Range Interpretation Comments Sodium Lvl (test code = Sodium Lvl) 134 135-145 [facility]2015-01-06 11:21:00 Test Item Value Reference Range Interpretation Comments Chloride Lvl (test code = Chloride Lvl) 94 95-109 [facility]2015-01-06 11:21:00 Test Item Value Reference Range Interpretation Comments Calcium Lvl (test code = Calcium Lvl) 9.1 8.5-10.5 [facility]2015-01-06 11:21:00 Test Item Value Reference Range Interpretation Comments CO2 (test code = CO2) 24 24-32 [facility]2015-01-06 11:21:00 Test Item Value Reference Range Interpretation Comments A/G Ratio (test code = A/G Ratio) 0.9 0.7-1.6 [facility]2015-01-06 11:21:00 Test Item Value Reference Range Interpretation Comments Globulin (test code = Globulin) 3.4 2.0-4.0 [facility]2015-01-06 11:21:00 Test Item Value Reference Range Interpretation Comments B/C Ratio (test code = B/C Ratio) 14 6-25 [facility]2015-01-06 11:21:00 Test Item Value Reference Range Interpretation Comments AGAP (test code = AGAP) 19.4 10.0-20.0 [facility]2015-01-06 11:21:00 Test Item Value Reference Range Interpretation Comments Lipase Lvl (test code = Lipase Lvl) 81 73-393 [facility] HospitalEixqpkwRKHPVHQZQY5602-72-30 11:21:00 Test Item Value Reference Range Interpretation Comments Large Plt (test code = Large Plt) Slight [facility] HospitalStnvdtzZVVYRDGDRJ1728-40-19 11:21:00 Test Item Value Reference Range Interpretation Comments Basophils # (test code 0.0 See_Comment [Aut omated message] The = Basophils #) system which generated this result tra nsmitted reference range : <=0.2. The reference r leo was not used to int erpret this result as normal/abnormal . [facility] HospitalEpsubhmIERCVJPGCZ2311-71-54 11:21:00 Test Item Value Reference Range Interpretation Comments Anisocyte (test code = 1+ *ABN*(06/26/14 5:21 Anisocyte) AM) [facility] HospitalSvifhmvGGBYVWRHOZ7811-90-02 11:21:00 Test Item Value Reference Range Interpretation Comments Monocytes # (test code 0.6 See_Comment [Aut omated message] The = Monocytes #) system which generated this result tra nsmitted reference range : <=0.8. The reference r leo was not used to int erpret this result as normal/abnormal . [facility] HospitalHfmauogEBCLYIJYRV7598-17-46 11:21:00 Test Item Value Reference Range Interpretation Comments Eosinophils # (test code 0.1 See_Comment [A utomated message] The = Eosinophils #) system whic h generated this result tra nsmitted reference range : <=0.5. The reference r leo was not used to int erpret this result as normal/abnormal . [facility] HospitalCfebewqGBOFXKMHIF6957-65-54 11:21:00 Test Item Value Reference Range Interpretation Comments Lymphocytes # (test code = Lymphocytes 2.5 1.0-5.5 #) [facility] HospitalOcpfggdIAMQRANCDR1581-63-82 11:21:00 Test Item Value Reference Range Interpretation Comments Segs (test code = Segs) 63.3 45.0-75.0 [facility] HospitalCpjldqnKFXCWIXDEQ9547-09-22 11:21:00 Test Item Value Reference Range Interpretation Comments Segs-Bands # (test code = Segs-Bands #) 5.6 1.5-8.1 [facility] HospitalHbwrnhhHIZXTMTXNB8301-33-13 11:21:00 Test Item Value Reference Range Interpretation Comments Basophils (test code = 0.0 See_Comment [Aut omated message] The Basophils) system which ge nerated this result tra nsmitted reference range : <=1.0. The reference r leo was not used to int erpret this result as normal/abnormal . [facility] HospitalOtrmecoLDYYTLQVEN3362-72-11 11:21:00 Test Item Value Reference Range Interpretation Comments Eosinophils (test code = 0.9 See_Comment [A utomated message] The Eosinophils) system which ge nerated this result tra nsmitted reference range : <=4.0. The reference r leo was not used to int erpret this result as normal/abnormal . [facility] HospitalTadlihjVCAMTICTDS1116-58-07 11:21:00 Test Item Value Reference Range Interpretation Comments Monocytes (test code = Monocytes) 7.0 2.0-12.0 [facility] HospitalMyfkrtkKYXBOBCFPF0880-09-10 11:21:00 Test Item Value Reference Range Interpretation Comments Lymphocytes (test code = Lymphocytes) 28.8 20.0-40.0 [facility] HospitalKclqvylJMTSUQXDBO1327-93-33 11:21:00 Test Item Value Reference Range Interpretation Comments WBC (test code = WBC) 8.8 3.7-10.4 [facility] HospitalRkoscljGNQEXIYSQS8310-74-46 11:21:00 Test Item Value Reference Range Interpretation Comments RBC (test code = RBC) 5.19 4.20-5.40 [facility] HospitalUvetaepSEFSSGSLLJ4851-62-38 11:21:00 Test Item Value Reference Range Interpretation Comments Hgb (test code = Hgb) 14.4 12.0-16.0 [facility] HospitalMzsytnpDPFJGXGPOQ0818-27-18 11:21:00 Test Item Value Reference Range Interpretation Comments Hct (test code = Hct) 43.1 36.0-48.0 [facility] HospitalLgucqijAPPYOCPNTU9203-56-02 11:21:00 Test Item Value Reference Range Interpretation Comments MCV (test code = MCV) 83.1 80.0-98.0 [facility] HospitalPzfbzkmMYSPPAGXEM0260-25-00 11:21:00 Test Item Value Reference Range Interpretation Comments MCH (test code = MCH) 27.8 pg 27.0-31.0 [facility] HospitalNaiykxdFVGNODGIEU5432-70-22 11:21:00 Test Item Value Reference Range Interpretation Comments RDW (test code = RDW) 13.1 11.5-14.5 [facility] HospitalYjquprgYRYWATOTDZ6629-80-08 11:21:00 Test Item Value Reference Range Interpretation Comments MCHC (test code = MCHC) 33.5 32.0-36.0 [facility] HospitalNazqywqLBCWMTZPHQ1649-97-83 11:21:00 Test Item Value Reference Range Interpretation Comments Platelet (test code = Platelet) 201 133-450 [facility] HospitalKzlfykgNIODPKJTEN2398-87-88 11:21:00 Test Item Value Reference Range Interpretation Comments MPV (test code = MPV) 10.4 7.4-10.4 [facility]2015-01-06 11:21:00 Test Item Value Reference Range Interpretation Comments Albumin Lvl (test code = Albumin Lvl) 3.2 3.5-5.0 [facility]2015-01-06 11:21:00 Test Item Value Reference Range Interpretation Comments Total Protein (test code = Total 6.6 6.4-8.4 Protein) [facility]2015-01-06 11:21:00 Test Item Value Reference Range Interpretation Comments Bili Total (test code = Bili Total) 0.6 0.2-1.3 [facility]2015-01-06 11:21:00 Test Item Value Reference Range Interpretation Comments Alk Phos (test code = Alk Phos) 59 39-136 [facility]2015-01-06 11:21:00 Test Item Value Reference Range Interpretation Comments AST (test code = AST) 11 See_Comment [Auto mated message] The system which ge nerated this result transmit rohit reference range : <=37. The reference range was not used to interpr et this result as reji l/abnormal. [facility]2015-01-06 11:21:00 Test Item Value Reference Range Interpretation Comments ALT (test code = ALT) 17 See_Comment [Auto mated message] The system which ge nerated this result transmit rohit reference range : <=65. The reference range was not used to interpr et this result as reji l/abnormal. [facility]2015-01-06 11:21:00 Test Item Value Reference Range Interpretation Comments eGFR (test code = eGFR) 99 [facility]2015-01-06 11:21:00 Test Item Value Reference Range Interpretation Comments Glucose Lvl (test code = Glucose Lvl) 314 70-99 [facility]2015-01-06 11:21:00 Test Item Value Reference Range Interpretation Comments Potassium Lvl (test code = Potassium 3.4 3.5-5.1 Lvl) [facility]2015-01-06 11:21:00 Test Item Value Reference Range Interpretation Comments BUN (test code = BUN) 11 7-22 [facility]2015-01-06 11:21:00 Test Item Value Reference Range Interpretation Comments Creatinine Lvl (test code = Creatinine 0.8 0.5-1.4 Lvl) [facility]2015-01-06 11:21:00 Test Item Value Reference Range Interpretation Comments Sodium Lvl (test code = Sodium Lvl) 134 135-145 [facility]2015-01-06 11:21:00 Test Item Value Reference Range Interpretation Comments Chloride Lvl (test code = Chloride Lvl) 94 95-109 [facility]2015-01-06 11:21:00 Test Item Value Reference Range Interpretation Comments Calcium Lvl (test code = Calcium Lvl) 9.1 8.5-10.5 [facility]2015-01-06 11:21:00 Test Item Value Reference Range Interpretation Comments CO2 (test code = CO2) 24 24-32 [facility]2015-01-06 11:21:00 Test Item Value Reference Range Interpretation Comments A/G Ratio (test code = A/G Ratio) 0.9 0.7-1.6 [facility]2015-01-06 11:21:00 Test Item Value Reference Range Interpretation Comments Globulin (test code = Globulin) 3.4 2.0-4.0 [facility]2015-01-06 11:21:00 Test Item Value Reference Range Interpretation Comments B/C Ratio (test code = B/C Ratio) 14 6-25 [facility]2015-01-06 11:21:00 Test Item Value Reference Range Interpretation Comments AGAP (test code = AGAP) 19.4 10.0-20.0 [facility]2015-01-06 11:21:00 Test Item Value Reference Range Interpretation Comments Lipase Lvl (test code = Lipase Lvl) 81 73-393 [facility]JmothtaGGURCVRNBH8486-32-90 11:21:00 Test Item Value Reference Range Interpretation Comments Large Plt (test code = Large Plt) Slight [facility] HospitalOpxrdqcWFTOPVHMQF8363-50-35 11:21:00 Test Item Value Reference Range Interpretation Comments Basophils # (test code 0.0 See_Comment [Aut omated message] The = Basophils #) system which generated this result tra nsmitted reference range : <=0.2. The reference r leo was not used to int erpret this result as normal/abnormal . [facility] HospitalCmiksgdDFMLSFTIJS7816-61-61 11:21:00 Test Item Value Reference Range Interpretation Comments Anisocyte (test code = 1+ *ABN*(06/26/14 5:21 Anisocyte) AM) [facility] HospitalWitwdywEMLRDOZJUB5413-50-24 11:21:00 Test Item Value Reference Range Interpretation Comments Monocytes # (test code 0.6 See_Comment [Aut omated message] The = Monocytes #) system which generated this result tra nsmitted reference range : <=0.8. The reference r leo was not used to int erpret this result as normal/abnormal . [facility] HospitalQzzpxjkPUPDYARDPO4834-98-12 11:21:00 Test Item Value Reference Range Interpretation Comments Eosinophils # (test code 0.1 See_Comment [A utomated message] The = Eosinophils #) system wh h generated this result tra nsmitted reference range : <=0.5. The reference r leo was not used to int erpret this result as normal/abnormal . [facility] HospitalSaffybyDWTQCMTFFL7302-46-99 11:21:00 Test Item Value Reference Range Interpretation Comments Lymphocytes # (test code = Lymphocytes 2.5 1.0-5.5 #) [facility] HospitalVflmsadMMXRRXYMXC8397-40-55 11:21:00 Test Item Value Reference Range Interpretation Comments Segs (test code = Segs) 63.3 45.0-75.0 [facility] HospitalErgihqiDVVCFYWSIO5691-79-98 11:21:00 Test Item Value Reference Range Interpretation Comments Segs-Bands # (test code = Segs-Bands #) 5.6 1.5-8.1 [facility] HospitalYdjhxwiHLOPQCBTAY5172-06-16 11:21:00 Test Item Value Reference Range Interpretation Comments Basophils (test code = 0.0 See_Comment [Aut omated message] The Basophils) system which ge nerated this result tra nsmitted reference range : <=1.0. The reference r leo was not used to int erpret this result as normal/abnormal . [facility] HospitalVkrqisdMJQYVJPEMS6395-28-42 11:21:00 Test Item Value Reference Range Interpretation Comments Eosinophils (test code = 0.9 See_Comment [A utomated message] The Eosinophils) system which ge nerated this result tra nsmitted reference range : <=4.0. The reference r leo was not used to int erpret this result as normal/abnormal . [facility] HospitalYantwixGXAMNHSZZT5142-26-33 11:21:00 Test Item Value Reference Range Interpretation Comments Monocytes (test code = Monocytes) 7.0 2.0-12.0 [facility] HospitalVvslinzKSINPCLQSZ6951-82-59 11:21:00 Test Item Value Reference Range Interpretation Comments Lymphocytes (test code = Lymphocytes) 28.8 20.0-40.0 [facility] HospitalErmbocuJTWJCPHANY2602-69-81 11:21:00 Test Item Value Reference Range Interpretation Comments WBC (test code = WBC) 8.8 3.7-10.4 [facility] HospitalMuqcqlnPISLHBFJXW8568-42-39 11:21:00 Test Item Value Reference Range Interpretation Comments RBC (test code = RBC) 5.19 4.20-5.40 [facility] HospitalUmpjpfmSOCAAWUQLV7963-64-32 11:21:00 Test Item Value Reference Range Interpretation Comments Hgb (test code = Hgb) 14.4 12.0-16.0 [facility] HospitalYhlzstpEREEVGFJOP8673-56-52 11:21:00 Test Item Value Reference Range Interpretation Comments Hct (test code = Hct) 43.1 36.0-48.0 [facility] HospitalOozjoecGHAJRXITTH8968-40-33 11:21:00 Test Item Value Reference Range Interpretation Comments MCV (test code = MCV) 83.1 80.0-98.0 [facility] HospitalBsxaukrSOYYUGNTPS7639-71-12 11:21:00 Test Item Value Reference Range Interpretation Comments MCH (test code = MCH) 27.8 pg 27.0-31.0 [facility] HospitalEjgpaflDESQFGODWH4294-19-64 11:21:00 Test Item Value Reference Range Interpretation Comments RDW (test code = RDW) 13.1 11.5-14.5 [facility] HospitalRqevaalHCNSGKVPQT0520-12-21 11:21:00 Test Item Value Reference Range Interpretation Comments MCHC (test code = MCHC) 33.5 32.0-36.0 [facility] HospitalSoscqduHJBBZXNSID3026-70-89 11:21:00 Test Item Value Reference Range Interpretation Comments Platelet (test code = Platelet) 201 133-450 [facility] HospitalOflmqimQHVQELWVJB3066-89-05 11:21:00 Test Item Value Reference Range Interpretation Comments MPV (test code = MPV) 10.4 7.4-10.4 [facility]2015-01-06 11:21:00 Test Item Value Reference Range Interpretation Comments Albumin Lvl (test code = Albumin Lvl) 3.2 3.5-5.0 [facility]2015-01-06 11:21:00 Test Item Value Reference Range Interpretation Comments Total Protein (test code = Total 6.6 6.4-8.4 Protein) [facility]2015-01-06 11:21:00 Test Item Value Reference Range Interpretation Comments Bili Total (test code = Bili Total) 0.6 0.2-1.3 [facility]2015-01-06 11:21:00 Test Item Value Reference Range Interpretation Comments Alk Phos (test code = Alk Phos) 59 39-136 [facility]2015-01-06 11:21:00 Test Item Value Reference Range Interpretation Comments AST (test code = AST) 11 See_Comment [Auto mated message] The system which ge nerated this result transmit rohit reference range : <=37. The reference range was not used to interpr et this result as reji l/abnormal. [facility]2015-01-06 11:21:00 Test Item Value Reference Range Interpretation Comments ALT (test code = ALT) 17 See_Comment [Auto mated message] The system which ge nerated this result transmit rohit reference range : <=65. The reference range was not used to interpr et this result as reji l/abnormal. [facility]2015-01-06 11:21:00 Test Item Value Reference Range Interpretation Comments eGFR (test code = eGFR) 99 [facility]2015-01-06 11:21:00 Test Item Value Reference Range Interpretation Comments Glucose Lvl (test code = Glucose Lvl) 314 70-99 [facility]2015-01-06 11:21:00 Test Item Value Reference Range Interpretation Comments Potassium Lvl (test code = Potassium 3.4 3.5-5.1 Lvl) [facility]2015-01-06 11:21:00 Test Item Value Reference Range Interpretation Comments BUN (test code = BUN) 11 7-22 [facility]2015-01-06 11:21:00 Test Item Value Reference Range Interpretation Comments Creatinine Lvl (test code = Creatinine 0.8 0.5-1.4 Lvl) [facility]2015-01-06 11:21:00 Test Item Value Reference Range Interpretation Comments Sodium Lvl (test code = Sodium Lvl) 134 135-145 [facility]2015-01-06 11:21:00 Test Item Value Reference Range Interpretation Comments Chloride Lvl (test code = Chloride Lvl) 94 95-109 [facility]2015-01-06 11:21:00 Test Item Value Reference Range Interpretation Comments Calcium Lvl (test code = Calcium Lvl) 9.1 8.5-10.5 [facility]2015-01-06 11:21:00 Test Item Value Reference Range Interpretation Comments CO2 (test code = CO2) 24 24-32 [facility]2015-01-06 11:21:00 Test Item Value Reference Range Interpretation Comments A/G Ratio (test code = A/G Ratio) 0.9 0.7-1.6 [facility]2015-01-06 11:21:00 Test Item Value Reference Range Interpretation Comments Globulin (test code = Globulin) 3.4 2.0-4.0 [facility]2015-01-06 11:21:00 Test Item Value Reference Range Interpretation Comments B/C Ratio (test code = B/C Ratio) 14 6-25 [facility]2015-01-06 11:21:00 Test Item Value Reference Range Interpretation Comments AGAP (test code = AGAP) 19.4 10.0-20.0 [facility]2015-01-06 11:21:00 Test Item Value Reference Range Interpretation Comments Lipase Lvl (test code = Lipase Lvl) 81 73-393 [facility] HospitalOxbyyguIPDCFKGQJQ1529-66-53 11:21:00 Test Item Value Reference Range Interpretation Comments Large Plt (test code = Large Plt) Slight [facility] HospitalDirmwtwMWUYOBEKKO0332-72-82 11:21:00 Test Item Value Reference Range Interpretation Comments Basophils # (test code 0.0 See_Comment [Aut omated message] The = Basophils #) system which generated this result tra nsmitted reference range : <=0.2. The reference r leo was not used to int erpret this result as normal/abnormal . [facility] HospitalCvcvsdjHIPLYFYDUB1439-05-44 11:21:00 Test Item Value Reference Range Interpretation Comments Anisocyte (test code = 1+ *ABN*(06/26/14 5:21 Anisocyte) AM) [facility] HospitalGpmnasoBZJRRIHYGQ8408-06-48 11:21:00 Test Item Value Reference Range Interpretation Comments Monocytes # (test code 0.6 See_Comment [Aut omated message] The = Monocytes #) system which generated this result tra nsmitted reference range : <=0.8. The reference r leo was not used to int erpret this result as normal/abnormal . [facility] HospitalMkkmuhaABBTLOUKPT3891-38-92 11:21:00 Test Item Value Reference Range Interpretation Comments Eosinophils # (test code 0.1 See_Comment [A utomated message] The = Eosinophils #) system whic h generated this result tra nsmitted reference range : <=0.5. The reference r leo was not used to int erpret this result as normal/abnormal . [facility] HospitalXarkxoyKTNRIMGOPB4251-24-66 11:21:00 Test Item Value Reference Range Interpretation Comments Lymphocytes # (test code = Lymphocytes 2.5 1.0-5.5 #) [facility] HospitalBwcoxdjDBIOEYFRGK3654-92-09 11:21:00 Test Item Value Reference Range Interpretation Comments Segs (test code = Segs) 63.3 45.0-75.0 [facility] HospitalDpsyrfsUAOZJITBNX8382-78-24 11:21:00 Test Item Value Reference Range Interpretation Comments Segs-Bands # (test code = Segs-Bands #) 5.6 1.5-8.1 [facility] HospitalFyakfsjQUTLCLGTFH7490-56-11 11:21:00 Test Item Value Reference Range Interpretation Comments Basophils (test code = 0.0 See_Comment [Aut omated message] The Basophils) system which ge nerated this result tra nsmitted reference range : <=1.0. The reference r leo was not used to int erpret this result as normal/abnormal . [facility] HospitalNapeqffESLPBJJGHO4611-58-62 11:21:00 Test Item Value Reference Range Interpretation Comments Eosinophils (test code = 0.9 See_Comment [A utomated message] The Eosinophils) system which ge nerated this result tra nsmitted reference range : <=4.0. The reference r leo was not used to int erpret this result as normal/abnormal . [facility] HospitalLqqsjkhKCEGLHSPGT7392-14-38 11:21:00 Test Item Value Reference Range Interpretation Comments Monocytes (test code = Monocytes) 7.0 2.0-12.0 [facility] HospitalPfuqfegWHBCMMFFDO9110-85-37 11:21:00 Test Item Value Reference Range Interpretation Comments Lymphocytes (test code = Lymphocytes) 28.8 20.0-40.0 [facility] HospitalZxbnlplJTROWTZLAS5464-81-19 11:21:00 Test Item Value Reference Range Interpretation Comments WBC (test code = WBC) 8.8 3.7-10.4 [facility] HospitalWbrznwyYXPGRSMDKH6377-46-98 11:21:00 Test Item Value Reference Range Interpretation Comments RBC (test code = RBC) 5.19 4.20-5.40 [facility] HospitalXmelljaXPSNDDXOCG4643-91-49 11:21:00 Test Item Value Reference Range Interpretation Comments Hgb (test code = Hgb) 14.4 12.0-16.0 [facility] HospitalTabiyfvIQGUMNFVKD5249-48-17 11:21:00 Test Item Value Reference Range Interpretation Comments Hct (test code = Hct) 43.1 36.0-48.0 [facility] HospitalLuqmyzrDKGLGNXZGR9354-82-71 11:21:00 Test Item Value Reference Range Interpretation Comments MCV (test code = MCV) 83.1 80.0-98.0 [facility] HospitalFuuinfkZLYFZTBGUC9809-93-90 11:21:00 Test Item Value Reference Range Interpretation Comments MCH (test code = MCH) 27.8 pg 27.0-31.0 [facility] HospitalIcpwrceFXQBPTTMBK7848-46-32 11:21:00 Test Item Value Reference Range Interpretation Comments RDW (test code = RDW) 13.1 11.5-14.5 [facility] HospitalIiwbiesWPWKTUSQXX8591-53-51 11:21:00 Test Item Value Reference Range Interpretation Comments MCHC (test code = MCHC) 33.5 32.0-36.0 [facility] HospitalMnotidwKTSETOUWLE9206-96-72 11:21:00 Test Item Value Reference Range Interpretation Comments Platelet (test code = Platelet) 201 133-450 [facility] HospitalPaizkooLKKWZRVRRF6167-30-45 11:21:00 Test Item Value Reference Range Interpretation Comments MPV (test code = MPV) 10.4 7.4-10.4 [facility]2015-01-06 11:21:00 Test Item Value Reference Range Interpretation Comments Albumin Lvl (test code = Albumin Lvl) 3.2 3.5-5.0 [facility]2015-01-06 11:21:00 Test Item Value Reference Range Interpretation Comments Total Protein (test code = Total 6.6 6.4-8.4 Protein) [facility]2015-01-06 11:21:00 Test Item Value Reference Range Interpretation Comments Bili Total (test code = Bili Total) 0.6 0.2-1.3 [facility]2015-01-06 11:21:00 Test Item Value Reference Range Interpretation Comments Alk Phos (test code = Alk Phos) 59 39-136 [facility]2015-01-06 11:21:00 Test Item Value Reference Range Interpretation Comments AST (test code = AST) 11 See_Comment [Auto mated message] The system which ge nerated this result transmit rohit reference range : <=37. The reference range was not used to interpr et this result as reji l/abnormal. [facility]2015-01-06 11:21:00 Test Item Value Reference Range Interpretation Comments ALT (test code = ALT) 17 See_Comment [Auto mated message] The system which ge nerated this result transmit rohit reference range : <=65. The reference range was not used to interpr et this result as reji l/abnormal. [place] 944665-01-06 11:21:00 Test Item Value Reference Range Interpretation Comments eGFR (test code = eGFR) 99 [facility]2015-01-06 11:21:00 Test Item Value Reference Range Interpretation Comments Glucose Lvl (test code = Glucose Lvl) 314 70-99 [facility]2015-01-06 11:21:00 Test Item Value Reference Range Interpretation Comments Potassium Lvl (test code = Potassium 3.4 3.5-5.1 Lvl) [facility]2015-01-06 11:21:00 Test Item Value Reference Range Interpretation Comments BUN (test code = BUN) 11 7-22 [facility]2015-01-06 11:21:00 Test Item Value Reference Range Interpretation Comments Creatinine Lvl (test code = Creatinine 0.8 0.5-1.4 Lvl) [facility]2015-01-06 11:21:00 Test Item Value Reference Range Interpretation Comments Sodium Lvl (test code = Sodium Lvl) 134 135-145 [facility]2015-01-06 11:21:00 Test Item Value Reference Range Interpretation Comments Chloride Lvl (test code = Chloride Lvl) 94 95-109 [facility]2015-01-06 11:21:00 Test Item Value Reference Range Interpretation Comments Calcium Lvl (test code = Calcium Lvl) 9.1 8.5-10.5 [facility]2015-01-06 11:21:00 Test Item Value Reference Range Interpretation Comments CO2 (test code = CO2) 24 24-32 [facility]2015-01-06 11:21:00 Test Item Value Reference Range Interpretation Comments A/G Ratio (test code = A/G Ratio) 0.9 0.7-1.6 [facility]2015-01-06 11:21:00 Test Item Value Reference Range Interpretation Comments Globulin (test code = Globulin) 3.4 2.0-4.0 [facility]2015-01-06 11:21:00 Test Item Value Reference Range Interpretation Comments B/C Ratio (test code = B/C Ratio) 14 6-25 [facility]2015-01-06 11:21:00 Test Item Value Reference Range Interpretation Comments AGAP (test code = AGAP) 19.4 10.0-20.0 [facility]2015-01-06 11:21:00 Test Item Value Reference Range Interpretation Comments Lipase Lvl (test code = Lipase Lvl) 81 73-393 [facility] HospitalLszdwblEYXLKAKYZC6786-60-98 11:21:00 Test Item Value Reference Range Interpretation Comments Large Plt (test code = Large Plt) Slight [facility] HospitalBpwthjnFFLNECJIZW0264-96-71 11:21:00 Test Item Value Reference Range Interpretation Comments Basophils # (test code 0.0 See_Comment [Aut omated message] The = Basophils #) system which generated this result tra nsmitted reference range : <=0.2. The reference r leo was not used to int erpret this result as normal/abnormal . [facility] HospitalFcwyopgIGYFYGVTVI8790-65-29 11:21:00 Test Item Value Reference Range Interpretation Comments Anisocyte (test code = 1+ *ABN*(06/26/14 5:21 Anisocyte) AM) [facility] HospitalZgcrsfxUBOXLSTFCA4442-02-87 11:21:00 Test Item Value Reference Range Interpretation Comments Monocytes # (test code 0.6 See_Comment [Aut omated message] The = Monocytes #) system which generated this result tra nsmitted reference range : <=0.8. The reference r leo was not used to int erpret this result as normal/abnormal . [facility] HospitalJyuxghqXUARWYRZEI1386-92-30 11:21:00 Test Item Value Reference Range Interpretation Comments Eosinophils # (test code 0.1 See_Comment [A utomated message] The = Eosinophils #) system whic h generated this result tra nsmitted reference range : <=0.5. The reference r leo was not used to int erpret this result as normal/abnormal . [facility] HospitalZccikmyVBPHNDLYGP4299-81-34 11:21:00 Test Item Value Reference Range Interpretation Comments Lymphocytes # (test code = Lymphocytes 2.5 1.0-5.5 #) [facility] HospitalZzegmajUYWEABHEWL9848-15-55 11:21:00 Test Item Value Reference Range Interpretation Comments Segs (test code = Segs) 63.3 45.0-75.0 [facility] HospitalJtstszyWYFXWPVJLE0150-21-98 11:21:00 Test Item Value Reference Range Interpretation Comments Segs-Bands # (test code = Segs-Bands #) 5.6 1.5-8.1 [facility] HospitalUzxrevlNAGTXJMZVA5924-05-00 11:21:00 Test Item Value Reference Range Interpretation Comments Basophils (test code = 0.0 See_Comment [Aut omated message] The Basophils) system which ge nerated this result tra nsmitted reference range : <=1.0. The reference r leo was not used to int erpret this result as normal/abnormal . [facility] HospitalBoldpmdSGDVTUGIKI1057-00-60 11:21:00 Test Item Value Reference Range Interpretation Comments Eosinophils (test code = 0.9 See_Comment [A utomated message] The Eosinophils) system which ge nerated this result tra nsmitted reference range : <=4.0. The reference r leo was not used to int erpret this result as normal/abnormal . [facility] HospitalDswdtrzJHNQUVLVRF0849-66-10 11:21:00 Test Item Value Reference Range Interpretation Comments Monocytes (test code = Monocytes) 7.0 2.0-12.0 [facility] HospitalBfcoigzHWINVGQOBG2300-44-13 11:21:00 Test Item Value Reference Range Interpretation Comments Lymphocytes (test code = Lymphocytes) 28.8 20.0-40.0 [facility] HospitalCqnjsacEKRBHQAGTF3783-75-29 11:21:00 Test Item Value Reference Range Interpretation Comments WBC (test code = WBC) 8.8 3.7-10.4 [facility] HospitalAagtzjnXYXUWATZUJ1310-21-34 11:21:00 Test Item Value Reference Range Interpretation Comments RBC (test code = RBC) 5.19 4.20-5.40 [facility] HospitalGogwrqvANLWTVNZVY5762-31-29 11:21:00 Test Item Value Reference Range Interpretation Comments Hgb (test code = Hgb) 14.4 12.0-16.0 [facility] HospitalTupvypzGBEEZUVPPY3034-34-31 11:21:00 Test Item Value Reference Range Interpretation Comments Hct (test code = Hct) 43.1 36.0-48.0 [facility] HospitalNcwdanqQTWCYFXDLC5991-20-00 11:21:00 Test Item Value Reference Range Interpretation Comments MCV (test code = MCV) 83.1 80.0-98.0 [facility] HospitalZlboytqUXLMNLOFSF6078-13-08 11:21:00 Test Item Value Reference Range Interpretation Comments MCH (test code = MCH) 27.8 pg 27.0-31.0 [facility] HospitalVrsmxrfPHDLODVXDG4135-36-04 11:21:00 Test Item Value Reference Range Interpretation Comments RDW (test code = RDW) 13.1 11.5-14.5 [facility] HospitalInwwaqpCSRCZOEOMW7975-88-36 11:21:00 Test Item Value Reference Range Interpretation Comments MCHC (test code = MCHC) 33.5 32.0-36.0 [facility] HospitalNcbuucsGFYKDVMTHH2066-77-48 11:21:00 Test Item Value Reference Range Interpretation Comments Platelet (test code = Platelet) 201 133-450 [facility] HospitalWpdzbylFXKMKZQWBC3835-06-17 11:21:00 Test Item Value Reference Range Interpretation Comments MPV (test code = MPV) 10.4 7.4-10.4 [facility]JcvofwlKYOBGEXJOK3658-18-04 04:48:55 Test Item Value Reference Range Interpretation Comments UA Jackson Yeast (test code = UA Occasional /HPF A Jackson Yeast) [facility] HospitalLuyextzKXAWRBRHRZ8222-58-18 04:48:55 Test Item Value Reference Range Interpretation Comments UA Mucus (test code = UA Mucus) Few /LPF N [facility] HospitalApcakbnTSPCZMWPZT9242-36-82 04:48:55 Test Item Value Reference Range Interpretation Comments UA Sq Epi (test code = UA Sq Moderate /LPF A Epi) [facility] HospitalUgrzqqqHYEIAUJXBP8041-80-28 04:48:55 Test Item Value Reference Range Interpretation Comments Micro? (test code = Performed (04/14/2013 N Micro?) 23:48:55) [facility] HospitalZwegicdJAVPTOELMF0918-43-72 04:48:55 Test Item Value Reference Range Interpretation Comments UA WBC (test code = UA WBC) 0-2 /HPF N [facility] HospitalEosebawWWROOVKGDJ7978-49-70 04:48:55 Test Item Value Reference Range Interpretation Comments UA Bacteria (test code = UA Occasional /HPF N Bacteria) [facility] HospitalGgnouazLTBQGCUDGE0862-67-37 04:48:55 Test Item Value Reference Range Interpretation Comments UA Glucose (test code = UA Glucose) 500 mg/dL A [facility] HospitalEjejrqdKMCJDXEYWV7629-23-72 04:48:55 Test Item Value Reference Range Interpretation Comments UA Bili (test code = Negative *NA*(04/14/2013 UA Bili) 23:48:55) [facility] HospitalSkvkqujUYLIWVKBNC3587-59-72 04:48:55 Test Item Value Reference Range Interpretation Comments UA Ketones (test code = Trace A UA Ketones) *ABN*(04/14/2013 23:48:55) [facility] HospitalTipbthmHIOMANULGZ8670-65-64 04:48:55 Test Item Value Reference Range Interpretation Comments UA Blood (test code = Negative (04/14/2013 N UA Blood) 23:48:55) [facility]SuddzmbWLYEBBZWDH5252-53-98 04:48:55 Test Item Value Reference Range Interpretation Comments UA Urobilinogen (test code = UA 0.2 0.1-1.0 N Urobilinogen) [facility] HospitalCzsjjadMHCPMSRESW9804-23-22 04:48:55 Test Item Value Reference Range Interpretation Comments UA Nitrite (test code Negative (04/14/2013 N = UA Nitrite) 23:48:55) [facility] HospitalNtzjpdcFVAVYEVVBW9346-49-77 04:48:55 Test Item Value Reference Range Interpretation Comments UA Leuk Est (test Negative (04/14/2013 N code = UA Leuk Est) 23:48:55) [facility] HospitalAbttvqwMLKHKQNRIT4494-54-22 04:48:55 Test Item Value Reference Range Interpretation Comments UA Turbidity (test code = Clear (04/14/2013 N UA Turbidity) 23:48:55) [facility] HospitalBxadgklQEKJNPVKTE1502-78-45 04:48:55 Test Item Value Reference Range Interpretation Comments UA Color (test code = Yellow *NA*(04/14/2013 UA Color) 23:48:55) [facility] HospitalIrfzfuySUPGHUOBNP7684-76-02 04:48:55 Test Item Value Reference Range Interpretation Comments UA pH (test code = UA pH) 7.0 1 5.0-8.0 N [facility] HospitalZgniatgLBSUABDDNN9103-48-22 04:48:55 Test Item Value Reference Range Interpretation Comments UA Spec Grav (test code = UA Spec 1.025 1 N Grav) [facility] HospitalWkldzusGBLSNBSIUT8084-56-46 04:48:55 Test Item Value Reference Range Interpretation Comments UA Protein (test code = Trace A UA Protein) *ABN*(04/14/2013 23:48:55) [facility] HospitalLvcdxqoYXLEFOPIYL2315-44-08 04:48:55 Test Item Value Reference Range Interpretation Comments UA Jackson Yeast (test code = UA Occasional /HPF A Jackson Yeast) [facility] HospitalCfifcidPVZLYFFUGU0798-41-36 04:48:55 Test Item Value Reference Range Interpretation Comments UA Mucus (test code = UA Mucus) Few /LPF N [facility] HospitalBrkktjeSWWDEEMXPI9323-51-89 04:48:55 Test Item Value Reference Range Interpretation Comments UA Sq Epi (test code = UA Sq Moderate /LPF A Epi) [facility] HospitalQgdvtqtQVWLFOBOQF5573-66-70 04:48:55 Test Item Value Reference Range Interpretation Comments Micro? (test code = Performed (04/14/2013 N Micro?) 23:48:55) [facility] HospitalVvhqdozDARGFEJRAW8080-17-88 04:48:55 Test Item Value Reference Range Interpretation Comments UA WBC (test code = UA WBC) 0-2 /HPF N [facility] HospitalJadxkpcWYJJYCJXWF2270-61-42 04:48:55 Test Item Value Reference Range Interpretation Comments UA Bacteria (test code = UA Occasional /HPF N Bacteria) [facility] HospitalQahqppuLCMAWDHWNX0992-96-54 04:48:55 Test Item Value Reference Range Interpretation Comments UA Glucose (test code = UA Glucose) 500 mg/dL A [facility] HospitalPqmklynAVBRXEZROL7171-90-38 04:48:55 Test Item Value Reference Range Interpretation Comments UA Bili (test code = Negative *NA*(04/14/2013 UA Bili) 23:48:55) [facility] HospitalClxtmnrQOJBETNOAX8471-00-66 04:48:55 Test Item Value Reference Range Interpretation Comments UA Ketones (test code = Trace A UA Ketones) *ABN*(04/14/2013 23:48:55) [facility] HospitalCjprepmUXLKAAOQER4328-32-23 04:48:55 Test Item Value Reference Range Interpretation Comments UA Blood (test code = Negative (04/14/2013 N UA Blood) 23:48:55) [facility] HospitalNighpuqQIVMWKGDOK2886-24-87 04:48:55 Test Item Value Reference Range Interpretation Comments UA Urobilinogen (test code = UA 0.2 0.1-1.0 N Urobilinogen) [facility] HospitalNoswqbhLABBTOQCZQ0262-36-43 04:48:55 Test Item Value Reference Range Interpretation Comments UA Nitrite (test code Negative (04/14/2013 N = UA Nitrite) 23:48:55) [facility] HospitalMvdozzkHUIQOADYOQ7209-15-95 04:48:55 Test Item Value Reference Range Interpretation Comments UA Leuk Est (test Negative (04/14/2013 N code = UA Leuk Est) 23:48:55) [facility] HospitalPyheflfMNWIMAWWUQ2676-83-28 04:48:55 Test Item Value Reference Range Interpretation Comments UA Turbidity (test code = Clear (04/14/2013 N UA Turbidity) 23:48:55) [facility] HospitalHwidroiPHRBMNYCKD9288-43-29 04:48:55 Test Item Value Reference Range Interpretation Comments UA Color (test code = Yellow *NA*(04/14/2013 UA Color) 23:48:55) [facility] HospitalCcuwixuUWTXANVZPT5302-01-72 04:48:55 Test Item Value Reference Range Interpretation Comments UA pH (test code = UA pH) 7.0 1 5.0-8.0 N [facility] HospitalSquodbkFTHXGRCNAU0413-12-05 04:48:55 Test Item Value Reference Range Interpretation Comments UA Spec Grav (test code = UA Spec 1.025 1 N Grav) [facility] HospitalAzijwvpJXNSZQIQTT0189-59-78 04:48:55 Test Item Value Reference Range Interpretation Comments UA Protein (test code = Trace A UA Protein) *ABN*(04/14/2013 23:48:55) [facility] HospitalNzgsyhoSFXPCZSJIF1691-93-64 04:48:55 Test Item Value Reference Range Interpretation Comments UA Jackson Yeast (test code = UA Occasional /HPF A Jackson Yeast) [facility] HospitalJlzljayLMWVSUWXRQ0119-62-68 04:48:55 Test Item Value Reference Range Interpretation Comments UA Mucus (test code = UA Mucus) Few /LPF N [facility] HospitalEokwdqsMIRHMJHHYL2682-82-19 04:48:55 Test Item Value Reference Range Interpretation Comments UA Sq Epi (test code = UA Sq Moderate /LPF A Epi) [facility] HospitalLztxllkRKXIYKWXDX4411-06-41 04:48:55 Test Item Value Reference Range Interpretation Comments Micro? (test code = Performed (04/14/2013 N Micro?) 23:48:55) [facility] HospitalFqkgockVXNPTAAVYO8561-29-20 04:48:55 Test Item Value Reference Range Interpretation Comments UA WBC (test code = UA WBC) 0-2 /HPF N [facility] HospitalIeblmcvMVLILEXSRV1635-82-55 04:48:55 Test Item Value Reference Range Interpretation Comments UA Bacteria (test code = UA Occasional /HPF N Bacteria) [facility] HospitalDhexxeqYYGBTXOXDH2913-84-84 04:48:55 Test Item Value Reference Range Interpretation Comments UA Glucose (test code = UA Glucose) 500 mg/dL A [facility] HospitalQcvbazpHYXMYSOSQF4781-03-56 04:48:55 Test Item Value Reference Range Interpretation Comments UA Bili (test code = Negative *NA*(04/14/2013 UA Bili) 23:48:55) [facility] HospitalHvlntnsTTSVBKGKBY0105-42-26 04:48:55 Test Item Value Reference Range Interpretation Comments UA Ketones (test code = Trace A UA Ketones) *ABN*(04/14/2013 23:48:55) [facility] HospitalAzukpvfOPFYVTDOHC5689-06-66 04:48:55 Test Item Value Reference Range Interpretation Comments UA Blood (test code = Negative (04/14/2013 N UA Blood) 23:48:55) [facility] HospitalVfntbxeSVDBZVVWSO5374-35-65 04:48:55 Test Item Value Reference Range Interpretation Comments UA Urobilinogen (test code = UA 0.2 0.1-1.0 N Urobilinogen) [facility] HospitalOwsoykpTYPSMGIOKQ2209-90-76 04:48:55 Test Item Value Reference Range Interpretation Comments UA Nitrite (test code Negative (04/14/2013 N = UA Nitrite) 23:48:55) [facility] HospitalSasbnpaAWJZTDFLHV5157-17-60 04:48:55 Test Item Value Reference Range Interpretation Comments UA Leuk Est (test Negative (04/14/2013 N code = UA Leuk Est) 23:48:55) [facility] HospitalEezdhuyHUNVPLVVAC5401-22-95 04:48:55 Test Item Value Reference Range Interpretation Comments UA Turbidity (test code = Clear (04/14/2013 N UA Turbidity) 23:48:55) [facility] HospitalLxtbqkoTSOSXJCUKJ8196-67-79 04:48:55 Test Item Value Reference Range Interpretation Comments UA Color (test code = Yellow *NA*(04/14/2013 UA Color) 23:48:55) [facility] HospitalFlgswzuYESWCTBENI0859-07-89 04:48:55 Test Item Value Reference Range Interpretation Comments UA pH (test code = UA pH) 7.0 1 5.0-8.0 N [facility] HospitalEgipgqmBQPXESXGEP6925-87-33 04:48:55 Test Item Value Reference Range Interpretation Comments UA Spec Grav (test code = UA Spec 1.025 1 N Grav) [facility] HospitalQadpafcSVZFVYLBHP8135-90-84 04:48:55 Test Item Value Reference Range Interpretation Comments UA Protein (test code = Trace A UA Protein) *ABN*(04/14/2013 23:48:55) [facility] HospitalBdwfbyiPQYGFTQMMN8950-89-21 04:48:55 Test Item Value Reference Range Interpretation Comments UA Jackson Yeast (test code = UA Occasional /HPF A Jackson Yeast) [facility] HospitalTpnqulpZKEJALQDRH3003-21-18 04:48:55 Test Item Value Reference Range Interpretation Comments UA Mucus (test code = UA Mucus) Few /LPF N [facility] HospitalQabwhfgIDPOHIZCWC0965-21-39 04:48:55 Test Item Value Reference Range Interpretation Comments UA Sq Epi (test code = UA Sq Moderate /LPF A Epi) [facility] HospitalDhvhjwsDQZFSMRQMD1100-89-87 04:48:55 Test Item Value Reference Range Interpretation Comments Micro? (test code = Performed (04/14/2013 N Micro?) 23:48:55) [facility] HospitalIueiagtYQXVANBFBO1303-40-55 04:48:55 Test Item Value Reference Range Interpretation Comments UA WBC (test code = UA WBC) 0-2 /HPF N [facility] HospitalHhqkvezFDODIATULY2670-87-08 04:48:55 Test Item Value Reference Range Interpretation Comments UA Bacteria (test code = UA Occasional /HPF N Bacteria) [facility] HospitalLivfnehNFWXGDGMEE3639-32-66 04:48:55 Test Item Value Reference Range Interpretation Comments UA Glucose (test code = UA Glucose) 500 mg/dL A [facility] HospitalUutdsivRSYXTFBANE0319-72-66 04:48:55 Test Item Value Reference Range Interpretation Comments UA Bili (test code = Negative *NA*(04/14/2013 UA Bili) 23:48:55) [facility] HospitalLumpjsbAMXCLGFEOZ1827-85-16 04:48:55 Test Item Value Reference Range Interpretation Comments UA Ketones (test code = Trace A UA Ketones) *ABN*(04/14/2013 23:48:55) [facility] HospitalNnrtaqeTRSYEVZIUW6814-70-71 04:48:55 Test Item Value Reference Range Interpretation Comments UA Blood (test code = Negative (04/14/2013 N UA Blood) 23:48:55) [facility] HospitalOcfxatmCZKXGLGQFS8313-16-52 04:48:55 Test Item Value Reference Range Interpretation Comments UA Urobilinogen (test code = UA 0.2 0.1-1.0 N Urobilinogen) [facility] HospitalUiexczxTVISJEFDYG8278-51-04 04:48:55 Test Item Value Reference Range Interpretation Comments UA Nitrite (test code Negative (04/14/2013 N = UA Nitrite) 23:48:55) [facility] HospitalBivacovEJKSIZFZQW1126-70-06 04:48:55 Test Item Value Reference Range Interpretation Comments UA Leuk Est (test Negative (04/14/2013 N code = UA Leuk Est) 23:48:55) [facility] HospitalBoaztqzJLSOROIKTE1963-73-69 04:48:55 Test Item Value Reference Range Interpretation Comments UA Turbidity (test code = Clear (04/14/2013 N UA Turbidity) 23:48:55) [facility] HospitalTtlduscURXTUTMWOQ5657-44-88 04:48:55 Test Item Value Reference Range Interpretation Comments UA Color (test code = Yellow *NA*(04/14/2013 UA Color) 23:48:55) [facility] HospitalVyadwykXFXRAAZZLQ7159-42-34 04:48:55 Test Item Value Reference Range Interpretation Comments UA pH (test code = UA pH) 7.0 1 5.0-8.0 N [facility] HospitalYkdzqkqDWRKXQWWCC1749-74-21 04:48:55 Test Item Value Reference Range Interpretation Comments UA Spec Grav (test code = UA Spec 1.025 1 N Grav) [facility] HospitalXlxgyiwMSIRIFLBDD1489-53-72 04:48:55 Test Item Value Reference Range Interpretation Comments UA Protein (test code = Trace A UA Protein) *ABN*(04/14/2013 23:48:55) [facility] HospitalZvtodqiIYKJBTCTVJ8872-30-21 04:48:55 Test Item Value Reference Range Interpretation Comments UA Jackson Yeast (test code = UA Occasional /HPF A Jackson Yeast) [facility] HospitalBjohkwtYLJHKUWRDF5504-48-70 04:48:55 Test Item Value Reference Range Interpretation Comments UA Mucus (test code = UA Mucus) Few /LPF N [facility] HospitalIxgkmktVQYCHPLWMI4021-14-88 04:48:55 Test Item Value Reference Range Interpretation Comments UA Sq Epi (test code = UA Sq Moderate /LPF A Epi) [facility] HospitalLrxutpeCKJXRILVXI6914-84-25 04:48:55 Test Item Value Reference Range Interpretation Comments Micro? (test code = Performed (04/14/2013 N Micro?) 23:48:55) [facility] HospitalZiletdvMUEXYJNDEP5544-63-99 04:48:55 Test Item Value Reference Range Interpretation Comments UA WBC (test code = UA WBC) 0-2 /HPF N [facility] HospitalDbcwwexKBJSTZZXPR7658-63-12 04:48:55 Test Item Value Reference Range Interpretation Comments UA Bacteria (test code = UA Occasional /HPF N Bacteria) [facility] HospitalVnwylczDJCXEUHWOL0661-51-36 04:48:55 Test Item Value Reference Range Interpretation Comments UA Glucose (test code = UA Glucose) 500 mg/dL A [facility] HospitalMsganvlVPFFQEQVFA4739-57-02 04:48:55 Test Item Value Reference Range Interpretation Comments UA Bili (test code = Negative *NA*(04/14/2013 UA Bili) 23:48:55) [facility] HospitalNgstivvJKBFQIGQCH4504-27-36 04:48:55 Test Item Value Reference Range Interpretation Comments UA Ketones (test code = Trace A UA Ketones) *ABN*(04/14/2013 23:48:55) [facility] HospitalEhnxjyaXBEODIBZDN5933-57-71 04:48:55 Test Item Value Reference Range Interpretation Comments UA Blood (test code = Negative (04/14/2013 N UA Blood) 23:48:55) [facility] HospitalZkjfhjtYMGGJJGGEU2381-50-63 04:48:55 Test Item Value Reference Range Interpretation Comments UA Urobilinogen (test code = UA 0.2 0.1-1.0 N Urobilinogen) [facility] HospitalQtucqsyAHEGTZQIFL3384-34-03 04:48:55 Test Item Value Reference Range Interpretation Comments UA Nitrite (test code Negative (04/14/2013 N = UA Nitrite) 23:48:55) [facility] HospitalQrxbctuLASTZAWABK7204-44-40 04:48:55 Test Item Value Reference Range Interpretation Comments UA Leuk Est (test Negative (04/14/2013 N code = UA Leuk Est) 23:48:55) [facility] HospitalJvkbetlXDXIMBJUIH9213-70-14 04:48:55 Test Item Value Reference Range Interpretation Comments UA Turbidity (test code = Clear (04/14/2013 N UA Turbidity) 23:48:55) [facility] HospitalLscoxjyKJDVRJVSYJ9540-08-67 04:48:55 Test Item Value Reference Range Interpretation Comments UA Color (test code = Yellow *NA*(04/14/2013 UA Color) 23:48:55) [facility] HospitalLdqcerlDBVBTCRBNC7355-16-53 04:48:55 Test Item Value Reference Range Interpretation Comments UA pH (test code = UA pH) 7.0 1 5.0-8.0 N [facility] HospitalJauzrjiOPYNVOTBPF5713-23-88 04:48:55 Test Item Value Reference Range Interpretation Comments UA Spec Grav (test code = UA Spec 1.025 1 N Grav) [facility] HospitalUbajampEWFXYTJTGK3984-33-39 04:48:55 Test Item Value Reference Range Interpretation Comments UA Protein (test code = Trace A UA Protein) *ABN*(04/14/2013 23:48:55) [facility]OgocijyFLMWBKDLM6265-08-14 04:28:00 Test Item Value Reference Range Interpretation Comments S Preg (test code = S Negative *NA*(04/14/2013 Preg) 23:28:00) [facility] [place]EsodgfwOMPNGLVRL7807-37-67 04:28:00 Test Item Value Reference Range Interpretation Comments Lipase Lvl (test code = Lipase Lvl) 233 73-393 N [facility] [place]DrvyvnyTYTQDYIQG9951-19-35 04:28:00 Test Item Value Reference Range Interpretation Comments Globulin (test code = Globulin) 4.1 2.0-4.0 H [facility] [place]UxmxqwbUWGOCSVRS3380-02-73 04:28:00 Test Item Value Reference Range Interpretation Comments AGAP (test code = AGAP) 10.5 10.0-20.0 N [facility] [place]IuxzocwWLHFYSLVR9279-83-14 04:28:00 Test Item Value Reference Range Interpretation Comments B/C Ratio (test code = B/C Ratio) 6 6-25 N [facility] [place]GtehhpjVBZUPNLLC1091-68-81 04:28:00 Test Item Value Reference Range Interpretation Comments A/G Ratio (test code = A/G Ratio) 0.7 0.7-1.6 N [facility] [place]IwmsfvpENOBRQCCE8138-82-10 04:28:00 Test Item Value Reference Range Interpretation Comments eGFR (test code = eGFR) 130 [facility] [place]ervilleYrlwerdVTDSJKARO6725-34-27 04:28:00 Test Item Value Reference Range Interpretation Comments Albumin Lvl (test code = Albumin Lvl) 2.9 3.5-5.0 L [facility] [place]MspgsiaYZVNJNVSM5870-80-35 04:28:00 Test Item Value Reference Range Interpretation Comments ASPARTATE TRANSAMINASE 20 See_Comment N [Aut omated message] (test code = ASPARTATE The s ystem which TRANSAMINASE) generated this result transmitted ref erence range: <=37. Th e reference range was not used to interpr et this result as normal/abnormal . [facility]PqzbqauNLOFKUOEN4145-10-43 04:28:00 Test Item Value Reference Range Interpretation Comments Bili Total (test code = Bili Total) 0.5 0.2-1.3 N [facility] DallasWnkiylkVNOSGLGTQ7402-71-65 04:28:00 Test Item Value Reference Range Interpretation Comments Alk Phos (test code = Alk Phos) 89 39-136 N [facility] DallasHkjggvwELDTORBFK5257-32-91 04:28:00 Test Item Value Reference Range Interpretation Comments ALANINE AMINOTRANSFERASE 11 See_Comment N [A utomated message] (test code = ALANINE The sys tem which AMINOTRANSFERASE) generated this result transmitted ref erence range: <=65. Th e reference range was not used to int erpret this result as normal/abnormal . [facility] DallasEgzmoddWHOGWXPHU8024-77-32 04:28:00 Test Item Value Reference Range Interpretation Comments Creatinine Lvl (test code = Creatinine 0.5 0.5-1.4 N Lvl) [facility] DallasQnxzxgaNNWYHKFOX4574-23-34 04:28:00 Test Item Value Reference Range Interpretation Comments BUN (test code = BUN) 3 7-22 L [facility] DallasEuozahlCSBSAFFYP3458-42-76 04:28:00 Test Item Value Reference Range Interpretation Comments Glucose Lvl (test code = Glucose Lvl) 255 70-99 H [facility] DallasPeenwsqSLRLEZFOP4986-42-66 04:28:00 Test Item Value Reference Range Interpretation Comments Total Protein (test code = Total 7.0 6.4-8.4 N Protein) [facility] DallasRqapuifRICWRUFTK7192-26-48 04:28:00 Test Item Value Reference Range Interpretation Comments Calcium Lvl (test code = Calcium Lvl) 8.7 8.5-10.5 N [facility] DallasCewdpwfZUBALOACT6054-31-62 04:28:00 Test Item Value Reference Range Interpretation Comments CO2 (test code = CO2) 29 24-32 N [facility] DallasHqnigsxMDDDXLLKZ9284-13-11 04:28:00 Test Item Value Reference Range Interpretation Comments Chloride Lvl (test code = Chloride Lvl) 104 95-109 N [facility] [place]XmnjjwqSTTZRTMQO0379-87-57 04:28:00 Test Item Value Reference Range Interpretation Comments Potassium Lvl (test code = Potassium 3.5 3.5-5.1 N Lvl) [facility]YtzjlubIHQSMJYRY5499-36-15 04:28:00 Test Item Value Reference Range Interpretation Comments Sodium Lvl (test code = Sodium Lvl) 140 135-145 N [facility]IxaqbxuNIADOVMKMZ2846-83-15 04:28:00 Test Item Value Reference Range Interpretation Comments PROTIME (test code = PROTIME) 12.1 s 12.0-14.7 N [facility] HospitalOsahuysFPPSVMSWRV5948-22-18 04:28:00 Test Item Value Reference Range Interpretation Comments aPTT (test code = aPTT) 39.0 s 22.9-35.8 H [facility] HospitalHzklkrfOEJJYAFMSO8262-80-80 04:28:00 Test Item Value Reference Range Interpretation Comments INR (test code = INR) 0.90 0.85-1.17 N [facility] HospitalIeflkihCRFHJQDPMI9340-41-52 04:28:00 Test Item Value Reference Range Interpretation Comments MCH (test code = MCH) 29.4 pg 27.0-31.0 N [facility] HospitalXtadgpaGBOBUXPPKM5270-81-64 04:28:00 Test Item Value Reference Range Interpretation Comments MCV (test code = MCV) 86.1 81.0-99.0 N [facility] HospitalClcvqefAXKLFBIGNF3916-93-45 04:28:00 Test Item Value Reference Range Interpretation Comments Hct (test code = Hct) 29.4 36.0-48.0 L [facility] HospitalVacmqtePOIRQNMNWN2532-09-65 04:28:00 Test Item Value Reference Range Interpretation Comments RDW (test code = RDW) 14.0 11.5-14.5 N [facility] HospitalSmalbbgUWOGWBKVUM9725-77-34 04:28:00 Test Item Value Reference Range Interpretation Comments WBC X 10x3 (test code = WBC X 10x3) 6.2 3.7-10.4 N [facility] HospitalQvcatibSJTEUXIVHE6433-88-10 04:28:00 Test Item Value Reference Range Interpretation Comments Platelet (test code = Platelet) 178 133-450 N [facility] HospitalBuivkvpUXDECUMHUZ9467-66-51 04:28:00 Test Item Value Reference Range Interpretation Comments MCHC (test code = MCHC) 34.1 32.0-36.0 N [facility] HospitalEojndiiZETIZNTUSY8289-47-33 04:28:00 Test Item Value Reference Range Interpretation Comments RBC X 10x6 (test code = RBC X 10x6) 3.41 4.20-5.40 L [facility] HospitalMvlcrhnWFPRVRMQLK0651-76-94 04:28:00 Test Item Value Reference Range Interpretation Comments Hgb (test code = Hgb) 10.0 12.0-16.0 L [facility] HospitalIcdgdpqZHSLNFTSVN6422-32-07 04:28:00 Test Item Value Reference Range Interpretation Comments MPV (test code = MPV) 10.1 7.4-10.4 N [facility] HospitalLtkjhjnNUPQXGKNMT6718-22-98 04:28:00 Test Item Value Reference Range Interpretation Comments Segs-Bands # (test code = Segs-Bands #) 4.4 1.5-8.1 N [facility] HospitalBapejugMYZEKFQQQU5000-12-47 04:28:00 Test Item Value Reference Range Interpretation Comments Basophils (test code = 0.7 See_Comment N [Aut omated message] The Basophils) system which ge nerated this result tra nsmitted reference range : <=1.0. The reference r leo was not used to int erpret this result as normal/abnormal . [facility] HospitalEygzdfdBAYSCOGKML2347-06-44 04:28:00 Test Item Value Reference Range Interpretation Comments Segs (test code = Segs) 70.7 45.0-75.0 N [facility] HospitalHcpapytEEFBEMKMXR2835-73-23 04:28:00 Test Item Value Reference Range Interpretation Comments Monocytes # (test code 0.3 See_Comment N [Aut omated message] The = Monocytes #) system which generated this result tra nsmitted reference range : <=0.8. The reference r leo was not used to int erpret this result as normal/abnormal . [facility] HospitalXpablllRQCXXKACGM1053-96-50 04:28:00 Test Item Value Reference Range Interpretation Comments Lymphocytes # (test code = Lymphocytes 1.2 1.0-5.5 N #) [facility] HospitalLjqgvqwQWPGQBVEOF3476-90-48 04:28:00 Test Item Value Reference Range Interpretation Comments Monocytes (test code = Monocytes) 4.5 2.0-12.0 N [facility] HospitalOxqssjhKHLIHUWQPD2345-90-91 04:28:00 Test Item Value Reference Range Interpretation Comments Eosinophils (test code = 4.1 See_Comment H [A utomated message] The Eosinophils) system which ge nerated this result tra nsmitted reference range : <=4.0. The reference r leo was not used to int erpret this result as normal/abnormal . [facility] HospitalUgbswmvGQAQKQVSIA0244-34-71 04:28:00 Test Item Value Reference Range Interpretation Comments Lymphocytes (test code = Lymphocytes) 20.0 20.0-40.0 N [facility] HospitalMzcebioOYMLETZNJL6162-85-32 04:28:00 Test Item Value Reference Range Interpretation Comments Basophils # (test code 0.0 See_Comment N [Aut omated message] The = Basophils #) system which generated this result tra nsmitted reference range : <=0.2. The reference r leo was not used to int erpret this result as normal/abnormal . [facility] HospitalBzfdobuFEFHWYKQBS5405-70-70 04:28:00 Test Item Value Reference Range Interpretation Comments Eosinophils # (test code 0.3 See_Comment N [A utomated message] The = Eosinophils #) system whic h generated this result tra nsmitted reference range : <=0.5. The reference r leo was not used to int erpret this result as normal/abnormal . [facility]VrfosokRAIEAKMBZ7504-99-31 04:28:00 Test Item Value Reference Range Interpretation Comments S Preg (test code = S Negative *NA*(04/14/2013 Preg) 23:28:00) [facility] [place]OszmvmyDPIHEWKCA3095-60-35 04:28:00 Test Item Value Reference Range Interpretation Comments Lipase Lvl (test code = Lipase Lvl) 233 73-393 N [facility] [place]RkfienbGDDMZFONM0178-89-94 04:28:00 Test Item Value Reference Range Interpretation Comments Globulin (test code = Globulin) 4.1 2.0-4.0 H [facility] [place]ZjduaqgOASFMZRRF0878-70-45 04:28:00 Test Item Value Reference Range Interpretation Comments AGAP (test code = AGAP) 10.5 10.0-20.0 N [facility]MkghtakXAWJXUDRW6948-71-05 04:28:00 Test Item Value Reference Range Interpretation Comments B/C Ratio (test code = B/C Ratio) 6 6-25 N [facility] [place]ervilleNovhomuZNQKVMTQD3326-40-21 04:28:00 Test Item Value Reference Range Interpretation Comments A/G Ratio (test code = A/G Ratio) 0.7 0.7-1.6 N [facility] [place]ervilleBjxhrrgHILIRAGIO4658-29-07 04:28:00 Test Item Value Reference Range Interpretation Comments eGFR (test code = eGFR) 130 [facility] [place]ervilleZsfpgsnELUCZAQIU6317-69-12 04:28:00 Test Item Value Reference Range Interpretation Comments Albumin Lvl (test code = Albumin Lvl) 2.9 3.5-5.0 L [facility] [place]ervilleWtutmbnCLWLMAERF1866-79-77 04:28:00 Test Item Value Reference Range Interpretation Comments ASPARTATE TRANSAMINASE 20 See_Comment N [Aut omated message] (test code = ASPARTATE The s ystem which TRANSAMINASE) generated this result transmitted ref erence range: <=37. Th e reference range was not used to interpr et this result as normal/abnormal . [facility]ervilleWmxpmxcEXEUJRXBJ7186-07-40 04:28:00 Test Item Value Reference Range Interpretation Comments Bili Total (test code = Bili Total) 0.5 0.2-1.3 N [facility] [place]IsqgoonWBXMOPFGD3984-21-02 04:28:00 Test Item Value Reference Range Interpretation Comments Alk Phos (test code = Alk Phos) 89 39-136 N [facility] [place]ervilleHtlleaoCISENJUAC4008-60-95 04:28:00 Test Item Value Reference Range Interpretation Comments ALANINE AMINOTRANSFERASE 11 See_Comment N [A utomated message] (test code = ALANINE The sys tem which AMINOTRANSFERASE) generated this result transmitted ref erence range: <=65. Th e reference range was not used to int erpret this result as normal/abnormal . [facility] [place]ervilleYdeihsuZUDHHWTAF9410-82-66 04:28:00 Test Item Value Reference Range Interpretation Comments Creatinine Lvl (test code = Creatinine 0.5 0.5-1.4 N Lvl) [facility] [place]ervilleSyvryaqZTRJLQZUF4961-66-32 04:28:00 Test Item Value Reference Range Interpretation Comments BUN (test code = BUN) 3 7-22 L [facility] [place]ervilleIbsgiodIPVGLXXZG7702-64-35 04:28:00 Test Item Value Reference Range Interpretation Comments Glucose Lvl (test code = Glucose Lvl) 255 70-99 H [facility] [place]ervilleEsjctuwXZILQIJVZ8550-40-75 04:28:00 Test Item Value Reference Range Interpretation Comments Total Protein (test code = Total 7.0 6.4-8.4 N Protein) [facility] [place]ervilleAwwegncCNHEYKOAP3077-89-17 04:28:00 Test Item Value Reference Range Interpretation Comments Calcium Lvl (test code = Calcium Lvl) 8.7 8.5-10.5 N [facility] [place]VxawrtpCWALSFBDW3019-61-26 04:28:00 Test Item Value Reference Range Interpretation Comments CO2 (test code = CO2) 29 24-32 N [facility] [place]ervilleRmtxgohTTQNVBMIG0868-52-64 04:28:00 Test Item Value Reference Range Interpretation Comments Chloride Lvl (test code = Chloride Lvl) 104 95-109 N [facility] [place]ervilleRqgdtvaAOZIFWFCF5201-02-41 04:28:00 Test Item Value Reference Range Interpretation Comments Potassium Lvl (test code = Potassium 3.5 3.5-5.1 N Lvl) [facility] [place]ervilleAxflkerDIEXWBLOZ2445-71-90 04:28:00 Test Item Value Reference Range Interpretation Comments Sodium Lvl (test code = Sodium Lvl) 140 135-145 N [facility] HospitalKhpgxslZHUAIUGRLS8201-03-01 04:28:00 Test Item Value Reference Range Interpretation Comments PROTIME (test code = PROTIME) 12.1 s 12.0-14.7 N [facility] HospitalYrdyzabHFWEZSKVSQ9907-74-14 04:28:00 Test Item Value Reference Range Interpretation Comments aPTT (test code = aPTT) 39.0 s 22.9-35.8 H [facility] HospitalSootubvPKKAECFNDA4189-79-13 04:28:00 Test Item Value Reference Range Interpretation Comments INR (test code = INR) 0.90 0.85-1.17 N [facility] HospitalGjbfeyyLGUXXOYOOT0185-98-95 04:28:00 Test Item Value Reference Range Interpretation Comments MCH (test code = MCH) 29.4 pg 27.0-31.0 N [facility] HospitalOwvhevhCPHWRFYAAY0413-36-41 04:28:00 Test Item Value Reference Range Interpretation Comments MCV (test code = MCV) 86.1 81.0-99.0 N [facility] HospitalLoawwubTFLMLCNPNZ9096-12-90 04:28:00 Test Item Value Reference Range Interpretation Comments Hct (test code = Hct) 29.4 36.0-48.0 L [facility] HospitalGfnboaxJCUYJDJNKX3795-84-06 04:28:00 Test Item Value Reference Range Interpretation Comments RDW (test code = RDW) 14.0 11.5-14.5 N [facility] HospitalBvywuqmQSEKUZDSFO2559-80-76 04:28:00 Test Item Value Reference Range Interpretation Comments WBC X 10x3 (test code = WBC X 10x3) 6.2 3.7-10.4 N [facility] HospitalYmvmokdSXZMMAZXGT0715-54-73 04:28:00 Test Item Value Reference Range Interpretation Comments Platelet (test code = Platelet) 178 133-450 N [facility] HospitalVdxktnyATTMBSMZRS1254-93-32 04:28:00 Test Item Value Reference Range Interpretation Comments MCHC (test code = MCHC) 34.1 32.0-36.0 N [facility] HospitalGbcrhzhJQNUEUEKSA8619-94-97 04:28:00 Test Item Value Reference Range Interpretation Comments RBC X 10x6 (test code = RBC X 10x6) 3.41 4.20-5.40 L [facility] HospitalXakjqroOQJUMOUEMA7962-08-57 04:28:00 Test Item Value Reference Range Interpretation Comments Hgb (test code = Hgb) 10.0 12.0-16.0 L [facility] HospitalGdrnfawERCWLOEGIP1828-26-83 04:28:00 Test Item Value Reference Range Interpretation Comments MPV (test code = MPV) 10.1 7.4-10.4 N [facility] HospitalFvbudyvZAAFTRHSTH6540-39-56 04:28:00 Test Item Value Reference Range Interpretation Comments Segs-Bands # (test code = Segs-Bands #) 4.4 1.5-8.1 N [facility] HospitalMxozjcuSRNGXBBKFI2916-82-76 04:28:00 Test Item Value Reference Range Interpretation Comments Basophils (test code = 0.7 See_Comment N [Aut omated message] The Basophils) system which ge nerated this result tra nsmitted reference range : <=1.0. The reference r leo was not used to int erpret this result as normal/abnormal . [facility] HospitalEoaqyivLWZFTLPINQ5528-23-40 04:28:00 Test Item Value Reference Range Interpretation Comments Segs (test code = Segs) 70.7 45.0-75.0 N [facility] HospitalPgnfyfwFFFETZWEWW1311-04-74 04:28:00 Test Item Value Reference Range Interpretation Comments Monocytes # (test code 0.3 See_Comment N [Aut omated message] The = Monocytes #) system which generated this result tra nsmitted reference range : <=0.8. The reference r leo was not used to int erpret this result as normal/abnormal . [facility] HospitalLgbmkjsWXGJLIEBIC7378-04-20 04:28:00 Test Item Value Reference Range Interpretation Comments Lymphocytes # (test code = Lymphocytes 1.2 1.0-5.5 N #) [facility] HospitalSfghoyrSJTBITMESK7714-02-79 04:28:00 Test Item Value Reference Range Interpretation Comments Monocytes (test code = Monocytes) 4.5 2.0-12.0 N [facility] HospitalEsgmpbrVRMZIGHBMB2850-75-70 04:28:00 Test Item Value Reference Range Interpretation Comments Eosinophils (test code = 4.1 See_Comment H [A utomated message] The Eosinophils) system which ge nerated this result tra nsmitted reference range : <=4.0. The reference r leo was not used to int erpret this result as normal/abnormal . [facility] HospitalArjpkadISPEJAOHVJ2659-55-44 04:28:00 Test Item Value Reference Range Interpretation Comments Lymphocytes (test code = Lymphocytes) 20.0 20.0-40.0 N [facility] HospitalXyosrhdOFWGNOIVEU2773-44-83 04:28:00 Test Item Value Reference Range Interpretation Comments Basophils # (test code 0.0 See_Comment N [Aut omated message] The = Basophils #) system which generated this result tra nsmitted reference range : <=0.2. The reference r leo was not used to int erpret this result as normal/abnormal . [facility] HospitalRgimkufXAQJQPGWMS3022-48-70 04:28:00 Test Item Value Reference Range Interpretation Comments Eosinophils # (test code 0.3 See_Comment N [A utomated message] The = Eosinophils #) system whic h generated this result tra nsmitted reference range : <=0.5. The reference r leo was not used to int erpret this result as normal/abnormal . [facility]ervilleIlarbeqUMWYGCALE9879-44-02 04:28:00 Test Item Value Reference Range Interpretation Comments S Preg (test code = S Negative *NA*(04/14/2013 Preg) 23:28:00) [facility]ervilleKepviltFQNOXULIM0554-57-57 04:28:00 Test Item Value Reference Range Interpretation Comments Lipase Lvl (test code = Lipase Lvl) 233 73-393 N [facility]ervilleNhdjyrwRZULRZWAT9409-09-14 04:28:00 Test Item Value Reference Range Interpretation Comments Globulin (test code = Globulin) 4.1 2.0-4.0 H [facility]OchbtxlTVPUVMLJD7800-59-71 04:28:00 Test Item Value Reference Range Interpretation Comments AGAP (test code = AGAP) 10.5 10.0-20.0 N [facility]ervilleHayhvvgVJHGZHFGB8033-86-48 04:28:00 Test Item Value Reference Range Interpretation Comments B/C Ratio (test code = B/C Ratio) 6 6-25 N [facility]YpkebwwYBDJRFRYD0359-72-76 04:28:00 Test Item Value Reference Range Interpretation Comments A/G Ratio (test code = A/G Ratio) 0.7 0.7-1.6 N [facility]ErytkzqNGIZCYIEG4341-54-85 04:28:00 Test Item Value Reference Range Interpretation Comments eGFR (test code = eGFR) 130 [facility]ervilleDgujuryLBWYAZCCV6348-51-07 04:28:00 Test Item Value Reference Range Interpretation Comments Albumin Lvl (test code = Albumin Lvl) 2.9 3.5-5.0 L [facility] [place]JyogyslUVYOXIAOO7326-09-13 04:28:00 Test Item Value Reference Range Interpretation Comments ASPARTATE TRANSAMINASE 20 See_Comment N [Aut omated message] (test code = ASPARTATE The s ystem which TRANSAMINASE) generated this result transmitted ref erence range: <=37. Th e reference range was not used to interpr et this result as normal/abnormal . [facility]ervilleTfywaieRUAQFHDGD6649-79-02 04:28:00 Test Item Value Reference Range Interpretation Comments Bili Total (test code = Bili Total) 0.5 0.2-1.3 N [facility]ervilleHvfhoqnNXAHSXRMX0167-97-09 04:28:00 Test Item Value Reference Range Interpretation Comments Alk Phos (test code = Alk Phos) 89 39-136 N [facility]ervilleHpwtlczKZHKZQXJT4006-53-41 04:28:00 Test Item Value Reference Range Interpretation Comments ALANINE AMINOTRANSFERASE 11 See_Comment N [A utomated message] (test code = ALANINE The sys tem which AMINOTRANSFERASE) generated this result transmitted ref erence range: <=65. Th e reference range was not used to int erpret this result as normal/abnormal . [facility]ervilleCnyrnduSHUPUXVSF4654-28-20 04:28:00 Test Item Value Reference Range Interpretation Comments Creatinine Lvl (test code = Creatinine 0.5 0.5-1.4 N Lvl) [facility]ervilleKeorhlvTHTMGGZNG1200-78-86 04:28:00 Test Item Value Reference Range Interpretation Comments BUN (test code = BUN) 3 7-22 L [facility]ervilleJubhocbXWYEPWCRU3653-44-36 04:28:00 Test Item Value Reference Range Interpretation Comments Glucose Lvl (test code = Glucose Lvl) 255 70-99 H [facility] [place]ervilleYtcfpyrNEUSEKOOO3958-48-14 04:28:00 Test Item Value Reference Range Interpretation Comments Total Protein (test code = Total 7.0 6.4-8.4 N Protein) [facility]ervilleBbpucvzIKWQPFYPW2059-45-63 04:28:00 Test Item Value Reference Range Interpretation Comments Calcium Lvl (test code = Calcium Lvl) 8.7 8.5-10.5 N [facility]ervilleLihlgwfEMUOXLQQW0285-74-70 04:28:00 Test Item Value Reference Range Interpretation Comments CO2 (test code = CO2) 29 24-32 N [facility]ervilleUggyxknVMMZSUIIA5080-40-16 04:28:00 Test Item Value Reference Range Interpretation Comments Chloride Lvl (test code = Chloride Lvl) 104 95-109 N [facility]ervilleDinunjeTQKECVORI7168-94-89 04:28:00 Test Item Value Reference Range Interpretation Comments Potassium Lvl (test code = Potassium 3.5 3.5-5.1 N Lvl) [facility]ervilleOlswfjdHWMPCVLIN8768-64-30 04:28:00 Test Item Value Reference Range Interpretation Comments Sodium Lvl (test code = Sodium Lvl) 140 135-145 N [facility] HospitalOkppuhbXHNCYDUZJJ0637-82-82 04:28:00 Test Item Value Reference Range Interpretation Comments PROTIME (test code = PROTIME) 12.1 s 12.0-14.7 N [facility] HospitalNpdfrmsCKORUDMTSQ8504-40-37 04:28:00 Test Item Value Reference Range Interpretation Comments aPTT (test code = aPTT) 39.0 s 22.9-35.8 H [facility] HospitalSunbdkjOTGXNJFGHM7608-85-85 04:28:00 Test Item Value Reference Range Interpretation Comments INR (test code = INR) 0.90 0.85-1.17 N [facility] HospitalPvtyyjbFSYGOFKWTL1127-64-70 04:28:00 Test Item Value Reference Range Interpretation Comments MCH (test code = MCH) 29.4 pg 27.0-31.0 N [facility] HospitalSawsuoqINKLMJBPGK0652-04-27 04:28:00 Test Item Value Reference Range Interpretation Comments MCV (test code = MCV) 86.1 81.0-99.0 N [facility] HospitalQhmqaksMLMAOQDLWN5948-15-12 04:28:00 Test Item Value Reference Range Interpretation Comments Hct (test code = Hct) 29.4 36.0-48.0 L [facility] HospitalXmdkzseOLYHFFMBAA8315-47-45 04:28:00 Test Item Value Reference Range Interpretation Comments RDW (test code = RDW) 14.0 11.5-14.5 N [facility] HospitalBpgqaurHCJXCKWFLS2457-62-16 04:28:00 Test Item Value Reference Range Interpretation Comments WBC X 10x3 (test code = WBC X 10x3) 6.2 3.7-10.4 N [facility] HospitalZjzgfhcBQKGFPKANI4172-63-01 04:28:00 Test Item Value Reference Range Interpretation Comments Platelet (test code = Platelet) 178 133-450 N [facility] HospitalBpmfwsfOFGOVSEWYZ2696-38-60 04:28:00 Test Item Value Reference Range Interpretation Comments MCHC (test code = MCHC) 34.1 32.0-36.0 N [facility] HospitalSecgfsvDEPQNBJXCU7386-09-33 04:28:00 Test Item Value Reference Range Interpretation Comments RBC X 10x6 (test code = RBC X 10x6) 3.41 4.20-5.40 L [facility] HospitalEogizemGXDGKBQPPH2913-26-73 04:28:00 Test Item Value Reference Range Interpretation Comments Hgb (test code = Hgb) 10.0 12.0-16.0 L [facility] HospitalThdnmvmRWLBIEANTZ1938-07-65 04:28:00 Test Item Value Reference Range Interpretation Comments MPV (test code = MPV) 10.1 7.4-10.4 N [facility] HospitalMcsjyweEZSFXFUJKN5407-77-37 04:28:00 Test Item Value Reference Range Interpretation Comments Segs-Bands # (test code = Segs-Bands #) 4.4 1.5-8.1 N [facility] HospitalVmueudiUVXLVFPIDB0529-83-78 04:28:00 Test Item Value Reference Range Interpretation Comments Basophils (test code = 0.7 See_Comment N [Aut omated message] The Basophils) system which ge nerated this result tra nsmitted reference range : <=1.0. The reference r leo was not used to int erpret this result as normal/abnormal . [facility] HospitalQuhbhwfXYOSMODDIY9929-61-89 04:28:00 Test Item Value Reference Range Interpretation Comments Segs (test code = Segs) 70.7 45.0-75.0 N [facility] HospitalKkcqgnuKOYEDFONAI5040-22-73 04:28:00 Test Item Value Reference Range Interpretation Comments Monocytes # (test code 0.3 See_Comment N [Aut omated message] The = Monocytes #) system which generated this result tra nsmitted reference range : <=0.8. The reference r leo was not used to int erpret this result as normal/abnormal . [facility] HospitalPlkipktVSWDROHBJC4213-36-46 04:28:00 Test Item Value Reference Range Interpretation Comments Lymphocytes # (test code = Lymphocytes 1.2 1.0-5.5 N #) [facility] HospitalUevwkxcATRUJEWZHV3217-11-22 04:28:00 Test Item Value Reference Range Interpretation Comments Monocytes (test code = Monocytes) 4.5 2.0-12.0 N [facility] HospitalStsseakRQZQAEOXYA3428-03-41 04:28:00 Test Item Value Reference Range Interpretation Comments Eosinophils (test code = 4.1 See_Comment H [A utomated message] The Eosinophils) system which ge nerated this result tra nsmitted reference range : <=4.0. The reference r leo was not used to int erpret this result as normal/abnormal . [facility] HospitalVohxvfnKNXPAGBTRZ0647-85-33 04:28:00 Test Item Value Reference Range Interpretation Comments Lymphocytes (test code = Lymphocytes) 20.0 20.0-40.0 N [facility] HospitalOuqwwhnHKBSYUDZNA7458-81-10 04:28:00 Test Item Value Reference Range Interpretation Comments Basophils # (test code 0.0 See_Comment N [Aut omated message] The = Basophils #) system which generated this result tra nsmitted reference range : <=0.2. The reference r leo was not used to int erpret this result as normal/abnormal . [facility] HospitalLluelttMGNDIWBTYY5278-87-49 04:28:00 Test Item Value Reference Range Interpretation Comments Eosinophils # (test code 0.3 See_Comment N [A utomated message] The = Eosinophils #) system whic h generated this result tra nsmitted reference range : <=0.5. The reference r leo was not used to int erpret this result as normal/abnormal . [facility]ervilleSxbajwlERAVDERZM1282-71-14 04:28:00 Test Item Value Reference Range Interpretation Comments S Preg (test code = S Negative *NA*(04/14/2013 Preg) 23:28:00) [facility]ervilleXtispayYJYYFRUBY1303-69-74 04:28:00 Test Item Value Reference Range Interpretation Comments Lipase Lvl (test code = Lipase Lvl) 233 73-393 N [facility]ervilleLumimkqRBWYAXFSH3279-14-42 04:28:00 Test Item Value Reference Range Interpretation Comments Globulin (test code = Globulin) 4.1 2.0-4.0 H [facility]ervilleTxjlqkbVNYGHBRRA9837-08-02 04:28:00 Test Item Value Reference Range Interpretation Comments AGAP (test code = AGAP) 10.5 10.0-20.0 N [facility]ervilleGoqsedaESRLBXILS7978-73-92 04:28:00 Test Item Value Reference Range Interpretation Comments B/C Ratio (test code = B/C Ratio) 6 6-25 N [facility]ervilleNsahlifPXNNMTUMH2599-45-24 04:28:00 Test Item Value Reference Range Interpretation Comments A/G Ratio (test code = A/G Ratio) 0.7 0.7-1.6 N [facility]ervilleZfrpaowSLONRMMGR5594-77-22 04:28:00 Test Item Value Reference Range Interpretation Comments eGFR (test code = eGFR) 130 [facility]ervilleEwulnnpTKLKJJGBD6641-67-45 04:28:00 Test Item Value Reference Range Interpretation Comments Albumin Lvl (test code = Albumin Lvl) 2.9 3.5-5.0 L [facility]ervilleXfekwovLORJTKTEW2913-50-58 04:28:00 Test Item Value Reference Range Interpretation Comments ASPARTATE TRANSAMINASE 20 See_Comment N [Aut omated message] (test code = ASPARTATE The s ystem which TRANSAMINASE) generated this result transmitted ref erence range: <=37. Th e reference range was not used to interpr et this result as normal/abnormal . [facility]ervilleDjkerqiXLRYMUOQU8403-60-57 04:28:00 Test Item Value Reference Range Interpretation Comments Bili Total (test code = Bili Total) 0.5 0.2-1.3 N [facility]ervilleLwvoxdtTVBUDYUZJ6271-13-65 04:28:00 Test Item Value Reference Range Interpretation Comments Alk Phos (test code = Alk Phos) 89 39-136 N [facility]ervilleDemmrtrZIDTLGOLI8284-31-87 04:28:00 Test Item Value Reference Range Interpretation Comments ALANINE AMINOTRANSFERASE 11 See_Comment N [A utomated message] (test code = ALANINE The sys tem which AMINOTRANSFERASE) generated this result transmitted ref erence range: <=65. Th e reference range was not used to int erpret this result as normal/abnormal . [facility]ervillePyjjiurCJWEQKPHP1948-00-26 04:28:00 Test Item Value Reference Range Interpretation Comments Creatinine Lvl (test code = Creatinine 0.5 0.5-1.4 N Lvl) [facility]ervilleEjqulanUSLALFCHN6003-68-56 04:28:00 Test Item Value Reference Range Interpretation Comments BUN (test code = BUN) 3 7-22 L [facility]ervilleOwurzwwPRQVAUDEH9490-37-32 04:28:00 Test Item Value Reference Range Interpretation Comments Glucose Lvl (test code = Glucose Lvl) 255 70-99 H [facility]ervilleKkernsaCFYOEVQTZ5187-57-00 04:28:00 Test Item Value Reference Range Interpretation Comments Total Protein (test code = Total 7.0 6.4-8.4 N Protein) [facility]ervilleSzdxtjlYMLNQXHGB7672-45-38 04:28:00 Test Item Value Reference Range Interpretation Comments Calcium Lvl (test code = Calcium Lvl) 8.7 8.5-10.5 N [facility]ervilleCizucudDEUVNFLIY9427-80-74 04:28:00 Test Item Value Reference Range Interpretation Comments CO2 (test code = CO2) 29 24-32 N [facility]ervilleApvpvneAIHBBVYZE3947-45-04 04:28:00 Test Item Value Reference Range Interpretation Comments Chloride Lvl (test code = Chloride Lvl) 104 95-109 N [facility]ervilleNdexluvLSQPLUEFP7357-89-04 04:28:00 Test Item Value Reference Range Interpretation Comments Potassium Lvl (test code = Potassium 3.5 3.5-5.1 N Lvl) [facility]ervilleRhdhvaxWTSKIQAVZ2020-14-50 04:28:00 Test Item Value Reference Range Interpretation Comments Sodium Lvl (test code = Sodium Lvl) 140 135-145 N [facility] HospitalJnsjirnBNVXZALTJW8387-59-26 04:28:00 Test Item Value Reference Range Interpretation Comments PROTIME (test code = PROTIME) 12.1 s 12.0-14.7 N [facility] HospitalPiqzwtoXORTNOVHNW2806-54-83 04:28:00 Test Item Value Reference Range Interpretation Comments aPTT (test code = aPTT) 39.0 s 22.9-35.8 H [facility] HospitalGkkduhxJKFRVCJERA2898-48-69 04:28:00 Test Item Value Reference Range Interpretation Comments INR (test code = INR) 0.90 0.85-1.17 N [facility] HospitalUmtiasrPEFDKNIXLH5561-25-03 04:28:00 Test Item Value Reference Range Interpretation Comments MCH (test code = MCH) 29.4 pg 27.0-31.0 N [facility] HospitalVwwabasYDBQQKUHQH7240-01-63 04:28:00 Test Item Value Reference Range Interpretation Comments MCV (test code = MCV) 86.1 81.0-99.0 N [facility] HospitalCpxnrjnFMIBYSAESS5248-18-38 04:28:00 Test Item Value Reference Range Interpretation Comments Hct (test code = Hct) 29.4 36.0-48.0 L [facility] HospitalWmhwdzcMXSTXVZREL4443-65-71 04:28:00 Test Item Value Reference Range Interpretation Comments RDW (test code = RDW) 14.0 11.5-14.5 N [facility] HospitalQmoszhzSNCFHGVOBE6645-67-08 04:28:00 Test Item Value Reference Range Interpretation Comments WBC X 10x3 (test code = WBC X 10x3) 6.2 3.7-10.4 N [facility] HospitalCwmsjosSLYSNJFEUW4984-31-56 04:28:00 Test Item Value Reference Range Interpretation Comments Platelet (test code = Platelet) 178 133-450 N [facility] HospitalVshdbwuEPUEBMUNTH0207-73-37 04:28:00 Test Item Value Reference Range Interpretation Comments MCHC (test code = MCHC) 34.1 32.0-36.0 N [facility] HospitalCbhrrauKLBVEUQQTY2138-39-77 04:28:00 Test Item Value Reference Range Interpretation Comments RBC X 10x6 (test code = RBC X 10x6) 3.41 4.20-5.40 L [facility] HospitalPpnnrbvQAEUCALNUO0539-57-27 04:28:00 Test Item Value Reference Range Interpretation Comments Hgb (test code = Hgb) 10.0 12.0-16.0 L [facility] HospitalZxbpgykEOZNTFIVDN5877-88-71 04:28:00 Test Item Value Reference Range Interpretation Comments MPV (test code = MPV) 10.1 7.4-10.4 N [facility] HospitalJkmmdswWBBFQYJPNR3718-68-35 04:28:00 Test Item Value Reference Range Interpretation Comments Segs-Bands # (test code = Segs-Bands #) 4.4 1.5-8.1 N [facility] HospitalEigbudvVNXARKRLLU1962-74-34 04:28:00 Test Item Value Reference Range Interpretation Comments Basophils (test code = 0.7 See_Comment N [Aut omated message] The Basophils) system which ge nerated this result tra nsmitted reference range : <=1.0. The reference r leo was not used to int erpret this result as normal/abnormal . [facility] HospitalAuqjjywAYFMDQHCES7409-47-61 04:28:00 Test Item Value Reference Range Interpretation Comments Segs (test code = Segs) 70.7 45.0-75.0 N [facility] HospitalLlmiruwLXXOGXYWOC3185-68-48 04:28:00 Test Item Value Reference Range Interpretation Comments Monocytes # (test code 0.3 See_Comment N [Aut omated message] The = Monocytes #) system which generated this result tra nsmitted reference range : <=0.8. The reference r leo was not used to int erpret this result as normal/abnormal . [facility] HospitalJikqjinIPNTMDPTHG9591-84-51 04:28:00 Test Item Value Reference Range Interpretation Comments Lymphocytes # (test code = Lymphocytes 1.2 1.0-5.5 N #) [facility] HospitalChnszzfLBYUMOITIA0417-89-10 04:28:00 Test Item Value Reference Range Interpretation Comments Monocytes (test code = Monocytes) 4.5 2.0-12.0 N [facility] HospitalTksquozGILTEHFEVV5699-22-27 04:28:00 Test Item Value Reference Range Interpretation Comments Eosinophils (test code = 4.1 See_Comment H [A utomated message] The Eosinophils) system which ge nerated this result tra nsmitted reference range : <=4.0. The reference r leo was not used to int erpret this result as normal/abnormal . [facility] HospitalUukagptDZYRNTWKUY6401-71-30 04:28:00 Test Item Value Reference Range Interpretation Comments Lymphocytes (test code = Lymphocytes) 20.0 20.0-40.0 N [facility] HospitalJamuzycDEIXWYOXGQ5587-39-80 04:28:00 Test Item Value Reference Range Interpretation Comments Basophils # (test code 0.0 See_Comment N [Aut omated message] The = Basophils #) system which generated this result tra nsmitted reference range : <=0.2. The reference r leo was not used to int erpret this result as normal/abnormal . [facility] HospitalZnqpaooZINWCBMWVI7380-39-65 04:28:00 Test Item Value Reference Range Interpretation Comments Eosinophils # (test code 0.3 See_Comment N [A utomated message] The = Eosinophils #) system whic h generated this result tra nsmitted reference range : <=0.5. The reference r leo was not used to int erpret this result as normal/abnormal . [facility]EskfimwZVUMPVSUR7459-86-90 04:28:00 Test Item Value Reference Range Interpretation Comments S Preg (test code = S Negative *NA*(04/14/2013 Preg) 23:28:00) [facility]LgotvycIJJCXKLMQ0676-34-82 04:28:00 Test Item Value Reference Range Interpretation Comments Lipase Lvl (test code = Lipase Lvl) 233 73-393 N [facility] DallasKgmxmmhLBDLMIPSQ9001-56-89 04:28:00 Test Item Value Reference Range Interpretation Comments Globulin (test code = Globulin) 4.1 2.0-4.0 H [facility] DallasLcythnfKLSGXHOHA0012-25-44 04:28:00 Test Item Value Reference Range Interpretation Comments AGAP (test code = AGAP) 10.5 10.0-20.0 N [facility] DallasMepgtgdPBOUKZKWN3094-92-31 04:28:00 Test Item Value Reference Range Interpretation Comments B/C Ratio (test code = B/C Ratio) 6 6-25 N [facility] DallasGvuyvtuRIZHPPUYA3464-74-80 04:28:00 Test Item Value Reference Range Interpretation Comments A/G Ratio (test code = A/G Ratio) 0.7 0.7-1.6 N [facility] DallasAqhuprpATFQTACKY1175-12-95 04:28:00 Test Item Value Reference Range Interpretation Comments eGFR (test code = eGFR) 130 [facility]ervilleHifrromFZWMSVTFU3930-34-78 04:28:00 Test Item Value Reference Range Interpretation Comments Albumin Lvl (test code = Albumin Lvl) 2.9 3.5-5.0 L [facility] DallasInddbyyDAUIEHQRG7365-00-65 04:28:00 Test Item Value Reference Range Interpretation Comments ASPARTATE TRANSAMINASE 20 See_Comment N [Aut omated message] (test code = ASPARTATE The s ystem which TRANSAMINASE) generated this result transmitted ref erence range: <=37. Th e reference range was not used to interpr et this result as normal/abnormal . [facility]ervilleVbkkafvFPMEXCXGY8389-16-74 04:28:00 Test Item Value Reference Range Interpretation Comments Bili Total (test code = Bili Total) 0.5 0.2-1.3 N [facility] [place]TgstjbaRDWDPJKYV9128-99-49 04:28:00 Test Item Value Reference Range Interpretation Comments Alk Phos (test code = Alk Phos) 89 39-136 N [facility] [place]ervilleWmvatgkZFRRRKGKF2802-92-29 04:28:00 Test Item Value Reference Range Interpretation Comments ALANINE AMINOTRANSFERASE 11 See_Comment N [A utomated message] (test code = ALANINE The sys tem which AMINOTRANSFERASE) generated this result transmitted ref erence range: <=65. Th e reference range was not used to int erpret this result as normal/abnormal . [facility]ervilleXezirgjVTPSOTIQV8967-33-68 04:28:00 Test Item Value Reference Range Interpretation Comments Creatinine Lvl (test code = Creatinine 0.5 0.5-1.4 N Lvl) [facility]ervilleHahjwqvESGRUYNCG2400-28-85 04:28:00 Test Item Value Reference Range Interpretation Comments BUN (test code = BUN) 3 7-22 L [facility] [place]PkfbagoDUXPZDKXG6617-17-85 04:28:00 Test Item Value Reference Range Interpretation Comments Glucose Lvl (test code = Glucose Lvl) 255 70-99 H [facility] [place]ervilleBhypicwYGHCNQPBS0089-81-66 04:28:00 Test Item Value Reference Range Interpretation Comments Total Protein (test code = Total 7.0 6.4-8.4 N Protein) [facility]ervilleErytferZEYQHSMIC8006-41-26 04:28:00 Test Item Value Reference Range Interpretation Comments Calcium Lvl (test code = Calcium Lvl) 8.7 8.5-10.5 N [facility]JxbmainOJPEHLPUC4367-01-48 04:28:00 Test Item Value Reference Range Interpretation Comments CO2 (test code = CO2) 29 24-32 N [facility]ervilleDoehivqAKZPWZOMM3899-29-94 04:28:00 Test Item Value Reference Range Interpretation Comments Chloride Lvl (test code = Chloride Lvl) 104 95-109 N [facility] [place]ervilleRafteszSWWAYKTHC8679-58-53 04:28:00 Test Item Value Reference Range Interpretation Comments Potassium Lvl (test code = Potassium 3.5 3.5-5.1 N Lvl) [facility]ervilleNplqlztHKWQRVUUD3961-53-81 04:28:00 Test Item Value Reference Range Interpretation Comments Sodium Lvl (test code = Sodium Lvl) 140 135-145 N [facility] HospitalCqhfiekKFZKWLIEHZ1343-13-32 04:28:00 Test Item Value Reference Range Interpretation Comments PROTIME (test code = PROTIME) 12.1 s 12.0-14.7 N [facility] HospitalWdsinnkSEWBHPVNJM3821-49-65 04:28:00 Test Item Value Reference Range Interpretation Comments aPTT (test code = aPTT) 39.0 s 22.9-35.8 H [facility] HospitalLuqxsprHMQHOUDUAS0301-12-50 04:28:00 Test Item Value Reference Range Interpretation Comments INR (test code = INR) 0.90 0.85-1.17 N [facility] HospitalVaoeonqDQKJOAIBBY1908-63-05 04:28:00 Test Item Value Reference Range Interpretation Comments MCH (test code = MCH) 29.4 pg 27.0-31.0 N [facility] HospitalMnosvutRBJXNLAAFR4876-68-09 04:28:00 Test Item Value Reference Range Interpretation Comments MCV (test code = MCV) 86.1 81.0-99.0 N [facility] HospitalEhwdloqLVCIDMMJLB8682-11-86 04:28:00 Test Item Value Reference Range Interpretation Comments Hct (test code = Hct) 29.4 36.0-48.0 L [facility] HospitalJrjqombESBLJEWNSP6169-17-93 04:28:00 Test Item Value Reference Range Interpretation Comments RDW (test code = RDW) 14.0 11.5-14.5 N [facility] HospitalHokmzaaURNANCLDKU6465-24-46 04:28:00 Test Item Value Reference Range Interpretation Comments WBC X 10x3 (test code = WBC X 10x3) 6.2 3.7-10.4 N [facility] HospitalMaycmijBLRKFMYTAI6549-58-84 04:28:00 Test Item Value Reference Range Interpretation Comments Platelet (test code = Platelet) 178 133-450 N [facility] HospitalPammsqiCUNJHBOWSK9214-64-11 04:28:00 Test Item Value Reference Range Interpretation Comments MCHC (test code = MCHC) 34.1 32.0-36.0 N [facility] HospitalPmnefhaXPHJANGGHL7015-94-99 04:28:00 Test Item Value Reference Range Interpretation Comments RBC X 10x6 (test code = RBC X 10x6) 3.41 4.20-5.40 L [facility] HospitalRxivbjxNWSGPENMMQ9431-67-62 04:28:00 Test Item Value Reference Range Interpretation Comments Hgb (test code = Hgb) 10.0 12.0-16.0 L [facility] HospitalPswnproAUDMPQHBYO8448-45-21 04:28:00 Test Item Value Reference Range Interpretation Comments MPV (test code = MPV) 10.1 7.4-10.4 N [facility] HospitalBzcxkqqLBOBFHXVJD4991-28-03 04:28:00 Test Item Value Reference Range Interpretation Comments Segs-Bands # (test code = Segs-Bands #) 4.4 1.5-8.1 N [facility] HospitalPbfvbgvRJTUJIWYHB6918-81-05 04:28:00 Test Item Value Reference Range Interpretation Comments Basophils (test code = 0.7 See_Comment N [Aut omated message] The Basophils) system which ge nerated this result tra nsmitted reference range : <=1.0. The reference r leo was not used to int erpret this result as normal/abnormal . [facility] HospitalUrwbkffOIJLECOWNZ7719-83-22 04:28:00 Test Item Value Reference Range Interpretation Comments Segs (test code = Segs) 70.7 45.0-75.0 N [facility] HospitalUdfglefUDVWPOBJQK6392-66-78 04:28:00 Test Item Value Reference Range Interpretation Comments Monocytes # (test code 0.3 See_Comment N [Aut omated message] The = Monocytes #) system which generated this result tra nsmitted reference range : <=0.8. The reference r leo was not used to int erpret this result as normal/abnormal . [facility] HospitalAewpzejMEWINFKKHI2994-33-19 04:28:00 Test Item Value Reference Range Interpretation Comments Lymphocytes # (test code = Lymphocytes 1.2 1.0-5.5 N #) [facility] HospitalYbjnmevHGVESYXYJG4511-93-39 04:28:00 Test Item Value Reference Range Interpretation Comments Monocytes (test code = Monocytes) 4.5 2.0-12.0 N [facility] HospitalSbawxsjHQWBKQBASJ7449-35-95 04:28:00 Test Item Value Reference Range Interpretation Comments Eosinophils (test code = 4.1 See_Comment H [A utomated message] The Eosinophils) system which ge nerated this result tra nsmitted reference range : <=4.0. The reference r leo was not used to int erpret this result as normal/abnormal . [facility] HospitalGqdxmucPNJBAJQPGT3082-26-11 04:28:00 Test Item Value Reference Range Interpretation Comments Lymphocytes (test code = Lymphocytes) 20.0 20.0-40.0 N [facility] HospitalPvpekppCVTIJIHECE2703-58-36 04:28:00 Test Item Value Reference Range Interpretation Comments Basophils # (test code 0.0 See_Comment N [Aut omated message] The = Basophils #) system which generated this result tra nsmitted reference range : <=0.2. The reference r leo was not used to int erpret this result as normal/abnormal . [facility] HospitalAynqiclBXERUIVRPY1218-17-22 04:28:00 Test Item Value Reference Range Interpretation Comments Eosinophils # (test code 0.3 See_Comment N [A utomated message] The = Eosinophils #) system whic h generated this result tra nsmitted reference range : <=0.5. The reference r leo was not used to int erpret this result as normal/abnormal . [facility] GLUCOSE WPOZAJB6786-40-98 01:12:00 Test Item Value Reference Range Interpretation Comments Gluc POC Lifscn (test code = Gluc POC 260 70-99 H Lifscn) [facility] GLUCOSE WKQDPOG5301-48-61 01:12:00 Test Item Value Reference Range Interpretation Comments Comment1 (test code = Comment1) Notify RN/ [facility] GLUCOSE ZZBGNKG2839-71-58 01:12:00 Test Item Value Reference Range Interpretation Comments Gluc POC Lifscn (test code = Gluc POC 260 70-99 H Lifscn) [facility] GLUCOSE ZFCOFZW1916-69-80 01:12:00 Test Item Value Reference Range Interpretation Comments Comment1 (test code = Comment1) Notify RN/ [facility] GLUCOSE UTLWXRO0561-68-39 01:12:00 Test Item Value Reference Range Interpretation Comments Gluc POC Lifscn (test code = Gluc POC 260 70-99 H Lifscn) [facility] GLUCOSE WYAHBIG1951-46-65 01:12:00 Test Item Value Reference Range Interpretation Comments Comment1 (test code = Comment1) Notify DARNELL [facility] GLUCOSE JOHEYRC4813-68-07 01:12:00 Test Item Value Reference Range Interpretation Comments Gluc POC Lifscn (test code = Gluc POC 260 70-99 H Lifscn) [facility] GLUCOSE ZYTZLAE6116-15-19 01:12:00 Test Item Value Reference Range Interpretation Comments Comment1 (test code = Comment1) Notify TABATHA/ [facility] GLUCOSE GSMVNSB1091-25-92 01:12:00 Test Item Value Reference Range Interpretation Comments Gluc POC Lifscn (test code = Gluc POC 260 70-99 H Lifscn) [facility] GLUCOSE UXPBTRW1705-62-64 01:12:00 Test Item Value Reference Range Interpretation Comments Comment1 (test code = Comment1) Notify DARNELL [facility] CenterTcttupqBLTDECEOCN6996-06-25 23:40:00 Test Item Value Reference Range Interpretation Comments UA Protein (test code = Trace A UA Protein) *ABN*(03/14/2012 18:40:00) [facility] CenterAzuaohmKJQFGOGSIN1815-30-47 23:40:00 Test Item Value Reference Range Interpretation Comments UA pH (test code = UA pH) 6.0 1 5.0-8.0 N [facility] CenterMqbubqkGYOBUSEVXG3922-82-27 23:40:00 Test Item Value Reference Range Interpretation Comments UA Ketones (test code = >=80 mg/dL UA Ketones) *NA*(03/14/2012 18:40:00) [facility]MoykcwkMSAYUGYPDI4060-35-99 23:40:00 Test Item Value Reference Range Interpretation Comments UA Glucose (test code = >=1000 mg/dL A UA Glucose) *ABN*(03/14/2012 18:40:00) [facility] CenterMubggrfYLZZVSVYDU2105-66-55 23:40:00 Test Item Value Reference Range Interpretation Comments UA Blood (test code = Negative (03/14/2012 N UA Blood) 18:40:00) [facility] ResourcesNtdobyhNSFNILVVQA5217-25-33 23:40:00 Test Item Value Reference Range Interpretation Comments UA Nitrite (test code Negative (03/14/2012 N = UA Nitrite) 18:40:00) [facility] CenterSrcfyptUIGYRIQFXB0153-19-14 23:40:00 Test Item Value Reference Range Interpretation Comments UA Urobilinogen (test code = UA 0.2 0.1-1.0 N Urobilinogen) [facility]ErkzolwTBVYDESNVR7453-16-77 23:40:00 Test Item Value Reference Range Interpretation Comments UA Leuk Est (test Negative (03/14/2012 N code = UA Leuk Est) 18:40:00) [facility] HospitalOrghbdpXGMFTNTBNK2870-26-06 23:40:00 Test Item Value Reference Range Interpretation Comments UA Bili (test code = Negative *NA*(03/14/2012 UA Bili) 18:40:00) [facility] HospitalLlaucobZHVQOKZAEF4911-74-71 23:40:00 Test Item Value Reference Range Interpretation Comments UA Turbidity (test code = Clear (03/14/2012 N UA Turbidity) 18:40:00) [facility] HospitalKwwxnxeLSPLPQPHDX5296-32-39 23:40:00 Test Item Value Reference Range Interpretation Comments UA Color (test code = Yellow *NA*(03/14/2012 UA Color) 18:40:00) [facility] HospitalOfvurksAISFBHRBRK1606-46-34 23:40:00 Test Item Value Reference Range Interpretation Comments UA Spec Grav (test >=1.030 A code = UA Spec Grav) *ABN*(03/14/2012 18:40:00) [facility] HospitalPgorigpSMAWLRIJFA9397-27-95 23:40:00 Test Item Value Reference Range Interpretation Comments UA Sq Epi (test code Occasional /LPF N = UA Sq Epi) (03/14/2012 18:40:00) [facility] CenterLsqyuihMODZLWNXYW3534-88-15 23:40:00 Test Item Value Reference Range Interpretation Comments UA WBC (test code = UA 3-5 /HPF (03/14/2012 N WBC) 18:40:00) [facility] CenterRnyrpujNQDAKUZFHI2859-84-25 23:40:00 Test Item Value Reference Range Interpretation Comments UA Bacteria (test code Occasional /HPF N = UA Bacteria) (03/14/2012 18:40:00) [facility] CenterYdzgeabSYZRVFQERJ2612-05-36 23:40:00 Test Item Value Reference Range Interpretation Comments UA Protein (test code = Trace A UA Protein) *ABN*(03/14/2012 18:40:00) [facility] HospitalMgqrlgxKTITVZHHXO5490-02-74 23:40:00 Test Item Value Reference Range Interpretation Comments UA pH (test code = UA pH) 6.0 1 5.0-8.0 N [facility] HospitalKsmqabuRCJZDXQXMX9430-33-42 23:40:00 Test Item Value Reference Range Interpretation Comments UA Ketones (test code = >=80 mg/dL UA Ketones) *NA*(03/14/2012 18:40:00) [facility] HospitalMttrgtqJQSIBCGSDV2825-16-73 23:40:00 Test Item Value Reference Range Interpretation Comments UA Glucose (test code = >=1000 mg/dL A UA Glucose) *ABN*(03/14/2012 18:40:00) [facility] HospitalKgmkhvhSUPZXSLLUB5512-31-94 23:40:00 Test Item Value Reference Range Interpretation Comments UA Blood (test code = Negative (03/14/2012 N UA Blood) 18:40:00) [facility] HospitalTinbpdtHAMBAMOJTJ3669-00-65 23:40:00 Test Item Value Reference Range Interpretation Comments UA Nitrite (test code Negative (03/14/2012 N = UA Nitrite) 18:40:00) [facility] HospitalNfykchiMBDYCMWGPN4604-08-09 23:40:00 Test Item Value Reference Range Interpretation Comments UA Urobilinogen (test code = UA 0.2 0.1-1.0 N Urobilinogen) [facility] HospitalHaybebxUQKSBBKZZY4535-53-04 23:40:00 Test Item Value Reference Range Interpretation Comments UA Leuk Est (test Negative (03/14/2012 N code = UA Leuk Est) 18:40:00) [facility] HospitalKcpiwjcJHPNVHFDNB4542-90-50 23:40:00 Test Item Value Reference Range Interpretation Comments UA Bili (test code = Negative *NA*(03/14/2012 UA Bili) 18:40:00) [facility] HospitalOmtapsqIHCZDEARGH1815-92-35 23:40:00 Test Item Value Reference Range Interpretation Comments UA Turbidity (test code = Clear (03/14/2012 N UA Turbidity) 18:40:00) [facility] HospitalOrinvwvLWBMDQFODI8280-54-97 23:40:00 Test Item Value Reference Range Interpretation Comments UA Color (test code = Yellow *NA*(03/14/2012 UA Color) 18:40:00) [facility] CenterIqmlgycTLCVAQQJQX6325-02-92 23:40:00 Test Item Value Reference Range Interpretation Comments UA Spec Grav (test >=1.030 A code = UA Spec Grav) *ABN*(03/14/2012 18:40:00) [facility] HospitalNngydccOCBASBFONZ0354-28-37 23:40:00 Test Item Value Reference Range Interpretation Comments UA Sq Epi (test code Occasional /LPF N = UA Sq Epi) (03/14/2012 18:40:00) [facility] HospitalDpdwlneBMIDUKLTCM1997-41-00 23:40:00 Test Item Value Reference Range Interpretation Comments UA WBC (test code = UA 3-5 /HPF (03/14/2012 N WBC) 18:40:00) [facility] HospitalUqltwydVTIYDQKKOB4908-31-84 23:40:00 Test Item Value Reference Range Interpretation Comments UA Bacteria (test code Occasional /HPF N = UA Bacteria) (03/14/2012 18:40:00) [facility] HospitalRdjkvlxAZNOMGUYIZ0012-58-76 23:40:00 Test Item Value Reference Range Interpretation Comments UA Protein (test code = Trace A UA Protein) *ABN*(03/14/2012 18:40:00) [facility] HospitalJhhzdkvHXIFZEKULD7092-22-96 23:40:00 Test Item Value Reference Range Interpretation Comments UA pH (test code = UA pH) 6.0 1 5.0-8.0 N [facility] HospitalFlpjdtgSRBVHOCSEY4757-31-66 23:40:00 Test Item Value Reference Range Interpretation Comments UA Ketones (test code = >=80 mg/dL UA Ketones) *NA*(03/14/2012 18:40:00) [facility] HospitalTuevskyNJOREENMQC5337-79-27 23:40:00 Test Item Value Reference Range Interpretation Comments UA Glucose (test code = >=1000 mg/dL A UA Glucose) *ABN*(03/14/2012 18:40:00) [facility] HospitalJvqawsjGKFXRGCMYE1047-65-14 23:40:00 Test Item Value Reference Range Interpretation Comments UA Blood (test code = Negative (03/14/2012 N UA Blood) 18:40:00) [facility] HospitalMpzgreyOHWRVLXVOR4090-16-46 23:40:00 Test Item Value Reference Range Interpretation Comments UA Nitrite (test code Negative (03/14/2012 N = UA Nitrite) 18:40:00) [facility] HospitalAcvufqzCDRIUZAXYJ1152-03-01 23:40:00 Test Item Value Reference Range Interpretation Comments UA Urobilinogen (test code = UA 0.2 0.1-1.0 N Urobilinogen) [facility] HospitalWkhpftdXUIQTUWNDA0935-37-89 23:40:00 Test Item Value Reference Range Interpretation Comments UA Leuk Est (test Negative (03/14/2012 N code = UA Leuk Est) 18:40:00) [facility] CenterQhonlzqQSZAMEDZXU8909-78-33 23:40:00 Test Item Value Reference Range Interpretation Comments UA Bili (test code = Negative *NA*(03/14/2012 UA Bili) 18:40:00) [facility] HospitalUcpifubRQCIVKYBHL9094-54-99 23:40:00 Test Item Value Reference Range Interpretation Comments UA Turbidity (test code = Clear (03/14/2012 N UA Turbidity) 18:40:00) [facility] HospitalKfgdlumJOZMBVYJMJ8955-27-08 23:40:00 Test Item Value Reference Range Interpretation Comments UA Color (test code = Yellow *NA*(03/14/2012 UA Color) 18:40:00) [facility] HospitalRqpxqfwCNMITHZRKL3067-78-62 23:40:00 Test Item Value Reference Range Interpretation Comments UA Spec Grav (test >=1.030 A code = UA Spec Grav) *ABN*(03/14/2012 18:40:00) [facility] HospitalPiekclzNTHWIVKCQN8967-43-27 23:40:00 Test Item Value Reference Range Interpretation Comments UA Sq Epi (test code Occasional /LPF N = UA Sq Epi) (03/14/2012 18:40:00) [facility] HospitalSbdiohdANMGGDUIWF9765-02-19 23:40:00 Test Item Value Reference Range Interpretation Comments UA WBC (test code = UA 3-5 /HPF (03/14/2012 N WBC) 18:40:00) [facility] HospitalBslmsebJUJUKMQCEQ9694-81-81 23:40:00 Test Item Value Reference Range Interpretation Comments UA Bacteria (test code Occasional /HPF N = UA Bacteria) (03/14/2012 18:40:00) [facility] HospitalKrrdexfHHFOVKKQAZ6513-19-83 23:40:00 Test Item Value Reference Range Interpretation Comments UA Protein (test code = Trace A UA Protein) *ABN*(03/14/2012 18:40:00) [facility] HospitalLjoixqbOWTEFLKSPM0090-04-45 23:40:00 Test Item Value Reference Range Interpretation Comments UA pH (test code = UA pH) 6.0 1 5.0-8.0 N [facility] HospitalUddgoytZPKOUZITVD1217-55-41 23:40:00 Test Item Value Reference Range Interpretation Comments UA Ketones (test code = >=80 mg/dL UA Ketones) *NA*(03/14/2012 18:40:00) [facility] HospitalAnwtifxJIRODFFQCE9840-26-83 23:40:00 Test Item Value Reference Range Interpretation Comments UA Glucose (test code = >=1000 mg/dL A UA Glucose) *ABN*(03/14/2012 18:40:00) [facility] HospitalLytxzmvMRGBFYGXML4819-69-06 23:40:00 Test Item Value Reference Range Interpretation Comments UA Blood (test code = Negative (03/14/2012 N UA Blood) 18:40:00) [facility] HospitalNhjmzmsRWPHMKMJAK2106-96-73 23:40:00 Test Item Value Reference Range Interpretation Comments UA Nitrite (test code Negative (03/14/2012 N = UA Nitrite) 18:40:00) [facility] HospitalQpzlrahUFJOBZPIOG9558-11-79 23:40:00 Test Item Value Reference Range Interpretation Comments UA Urobilinogen (test code = UA 0.2 0.1-1.0 N Urobilinogen) [facility] HospitalHaxyjrbNPTCYNWSBI5553-76-75 23:40:00 Test Item Value Reference Range Interpretation Comments UA Leuk Est (test Negative (03/14/2012 N code = UA Leuk Est) 18:40:00) [facility] [facility]0075-[facility] 23:40:00 Test Item Value Reference Range Interpretation Comments UA Bili (test code = Negative *NA*(03/14/2012 UA Bili) 18:40:00) [facility]hstKCSVSADEWZ9723-69-71 23:40:00 Test Item Value Reference Range Interpretation Comments UA Turbidity (test code = Clear (03/14/2012 N UA Turbidity) 18:40:00) [facility] HospitalSwxsweqSBBQLFJQCU4758-13-45 23:40:00 Test Item Value Reference Range Interpretation Comments UA Color (test code = Yellow *NA*(03/14/2012 UA Color) 18:40:00) [facility] HospitalZtcebkhQOURFRNWOL7312-26-66 23:40:00 Test Item Value Reference Range Interpretation Comments UA Spec Grav (test >=1.030 A code = UA Spec Grav) *ABN*(03/14/2012 18:40:00) [facility] HospitalWhtmsflEUBUOTMRVT7552-52-44 23:40:00 Test Item Value Reference Range Interpretation Comments UA Sq Epi (test code Occasional /LPF N = UA Sq Epi) (03/14/2012 18:40:00) [facility] HospitalXzvbowaQBJFFSEJZQ4954-09-94 23:40:00 Test Item Value Reference Range Interpretation Comments UA WBC (test code = UA 3-5 /HPF (03/14/2012 N WBC) 18:40:00) [facility] HospitalSctqqtzTIIKWMAATD5121-10-89 23:40:00 Test Item Value Reference Range Interpretation Comments UA Bacteria (test code Occasional /HPF N = UA Bacteria) (03/14/2012 18:40:00) [facility] HospitalJzeksfbALXLANQNJT2976-79-25 23:40:00 Test Item Value Reference Range Interpretation Comments UA Protein (test code = Trace A UA Protein) *ABN*(03/14/2012 18:40:00) [facility] HospitalLudozpsXOPBFAPOKE3399-88-77 23:40:00 Test Item Value Reference Range Interpretation Comments UA pH (test code = UA pH) 6.0 1 5.0-8.0 N [facility] HospitalKkdmhvvMPITMPXOWQ4789-75-47 23:40:00 Test Item Value Reference Range Interpretation Comments UA Ketones (test code = >=80 mg/dL UA Ketones) *NA*(03/14/2012 18:40:00) [facility] HospitalRyydjrdABIQIWYKPX8287-60-76 23:40:00 Test Item Value Reference Range Interpretation Comments UA Glucose (test code = >=1000 mg/dL A UA Glucose) *ABN*(03/14/2012 18:40:00) [facility] HospitalGgoftomDUPQFTDMHZ1544-29-30 23:40:00 Test Item Value Reference Range Interpretation Comments UA Blood (test code = Negative (03/14/2012 N UA Blood) 18:40:00) [facility] HospitalIqijwpkGSAKRODQBK7486-74-84 23:40:00 Test Item Value Reference Range Interpretation Comments UA Nitrite (test code Negative (03/14/2012 N = UA Nitrite) 18:40:00) [facility]YgpadusLRJYUJPCVS7156-77-92 23:40:00 Test Item Value Reference Range Interpretation Comments UA Urobilinogen (test code = UA 0.2 0.1-1.0 N Urobilinogen) [facility] ResourcesNegrmxyZOUYSMIVTE8620-86-69 23:40:00 Test Item Value Reference Range Interpretation Comments UA Leuk Est (test Negative (03/14/2012 N code = UA Leuk Est) 18:40:00) [facility] DallasKbzvhvzJJMJIWQDLR3319-50-12 23:40:00 Test Item Value Reference Range Interpretation Comments UA Bili (test code = Negative *NA*(03/14/2012 UA Bili) 18:40:00) [facility] ResourcesRkacrhjUDIQEUJFKB6694-30-01 23:40:00 Test Item Value Reference Range Interpretation Comments UA Turbidity (test code = Clear (03/14/2012 N UA Turbidity) 18:40:00) [facility] ResourcesRrfbkgaHZKZYATMDX9174-33-52 23:40:00 Test Item Value Reference Range Interpretation Comments UA Color (test code = Yellow *NA*(03/14/2012 UA Color) 18:40:00) [facility] DallasUguwevuSFAPJANEVN9380-94-68 23:40:00 Test Item Value Reference Range Interpretation Comments UA Spec Grav (test >=1.030 A code = UA Spec Grav) *ABN*(03/14/2012 18:40:00) [facility]RgzmqviUYKNFZOCIU5856-15-39 23:40:00 Test Item Value Reference Range Interpretation Comments UA Sq Epi (test code Occasional /LPF N = UA Sq Epi) (03/14/2012 18:40:00) [facility] DallasVuvhwoqGHTZJIVMJB0235-96-92 23:40:00 Test Item Value Reference Range Interpretation Comments UA WBC (test code = UA 3-5 /HPF (03/14/2012 N WBC) 18:40:00) [facility] DallasQnvcmcfJIAOLWBTEX2797-49-27 23:40:00 Test Item Value Reference Range Interpretation Comments UA Bacteria (test code Occasional /HPF N = UA Bacteria) (03/14/2012 18:40:00) [facility] DallasLybdjexRJBXRGNGX3587-46-00 22:50:00 Test Item Value Reference Range Interpretation Comments S Preg (test code = S Negative *NA*(03/14/2012 Preg) 17:50:00) [facility]BoyuvvmTZCNBAYNC9048-84-81 22:50:00 Test Item Value Reference Range Interpretation Comments Lipase Lvl (test code = Lipase Lvl) 45 73-393 L [facility] [place]ervilleJxqdnntNMKBWGNSS0899-24-72 22:50:00 Test Item Value Reference Range Interpretation Comments A/G Ratio (test code = A/G Ratio) 1.2 0.7-1.6 N [facility]ervilleIvwyzglCILBXSWTS3717-96-50 22:50:00 Test Item Value Reference Range Interpretation Comments Globulin (test code = Globulin) 3.8 2.0-4.0 N [facility]ervillePqckfnlYALSHDURU9337-05-19 22:50:00 Test Item Value Reference Range Interpretation Comments B/C Ratio (test code = B/C Ratio) 21 6-25 N [facility] [place]IcdbykbBIJBQUIRR7490-91-00 22:50:00 Test Item Value Reference Range Interpretation Comments AGAP (test code = AGAP) 16.8 10.0-20.0 N [facility] [place]ervilleNvcluzkGJARGARBL4489-10-53 22:50:00 Test Item Value Reference Range Interpretation Comments Bili Total (test code = Bili Total) 1.1 0.2-1.3 N [facility] [place]ervillePawekhkVQWLEPPAN5414-54-21 22:50:00 Test Item Value Reference Range Interpretation Comments Total Protein (test code = Total 8.2 6.4-8.4 N Protein) [facility]ervilleYzkisjvJJBUDNYZR4786-86-05 22:50:00 Test Item Value Reference Range Interpretation Comments Potassium Lvl (test code = Potassium 3.8 3.5-5.1 N Lvl) [facility]ervilleCmhjlwfCMKYDHNBT5312-89-32 22:50:00 Test Item Value Reference Range Interpretation Comments Creatinine Lvl (test code = Creatinine 0.7 0.5-1.4 N Lvl) [facility]ervilleNwzwmfnYEEXAHEFM1727-41-87 22:50:00 Test Item Value Reference Range Interpretation Comments Sodium Lvl (test code = Sodium Lvl) 139 135-145 N [facility] [place]ervilleOwemrnsHNKAVYFXK0179-98-06 22:50:00 Test Item Value Reference Range Interpretation Comments Chloride Lvl (test code = Chloride Lvl) 99 95-109 N [facility]ervilleSqkedjyKQQQVZLBZ6284-86-60 22:50:00 Test Item Value Reference Range Interpretation Comments CO2 (test code = CO2) 27 24-32 N [facility] [place]ervilleLssbtneQZDPIRXHS9954-98-53 22:50:00 Test Item Value Reference Range Interpretation Comments Glucose Lvl (test code = Glucose Lvl) 301 70-99 H [facility] [place]ervilleGqlwcejSVEDDJYHZ9257-94-06 22:50:00 Test Item Value Reference Range Interpretation Comments BUN (test code = BUN) 15 7-22 N [facility] [place]ervilleNcrzufyNRGTVTBES4554-57-55 22:50:00 Test Item Value Reference Range Interpretation Comments ALT (test code = ALT) 24 See_Comment N [Auto mated message] The system which ge nerated this result transmit rohit reference range : <=65. The reference range was not used to interpr et this result as reji l/abnormal. [facility]ervilleFhkzpdsGPQMGYTWU0861-46-52 22:50:00 Test Item Value Reference Range Interpretation Comments AST (test code = AST) 20 See_Comment N [Auto mated message] The system which ge nerated this result transmit rohit reference range : <=37. The reference range was not used to interpr et this result as reji l/abnormal. [facility]ervilleHhvcrblYSELVEIBF5808-69-76 22:50:00 Test Item Value Reference Range Interpretation Comments Alk Phos (test code = Alk Phos) 67 39-136 N [facility] [place]ervilleSmdvlusNJRQPEPGA0651-47-52 22:50:00 Test Item Value Reference Range Interpretation Comments Albumin Lvl (test code = Albumin Lvl) 4.4 3.5-5.0 N [facility] [place]ervilleSmlahzxHNAGRBWTV6245-92-77 22:50:00 Test Item Value Reference Range Interpretation Comments Calcium Lvl (test code = Calcium Lvl) 9.9 8.5-10.5 N [facility] HospitalScncgkvGDVASBDISZ3877-29-21 22:50:00 Test Item Value Reference Range Interpretation Comments MPV (test code = MPV) 11.8 7.4-10.4 H [facility] HospitalWhvuznnYEPWCGBZEL6479-04-31 22:50:00 Test Item Value Reference Range Interpretation Comments MCHC (test code = MCHC) 35.9 32.0-36.0 N [facility] HospitalDtoeoqoSTMPRGERMG7485-63-27 22:50:00 Test Item Value Reference Range Interpretation Comments MCH (test code = MCH) 31.2 pg 27.0-31.0 H [facility] HospitalJdrzljsBQTSXBNJDE9790-84-78 22:50:00 Test Item Value Reference Range Interpretation Comments Platelet (test code = Platelet) 189 133-450 N [facility] HospitalZyddlixPZKQEMGEOB7612-71-26 22:50:00 Test Item Value Reference Range Interpretation Comments RDW (test code = RDW) 13.1 11.5-14.5 N [facility] HospitalPefaiwwDGDUZKXCTZ9103-49-80 22:50:00 Test Item Value Reference Range Interpretation Comments Hct (test code = Hct) 40.7 36.0-48.0 N [facility] HospitalPzjylfmIFDINMJWNQ1907-20-68 22:50:00 Test Item Value Reference Range Interpretation Comments Hgb (test code = Hgb) 14.6 12.0-16.0 N [facility] HospitalRckbearRQAMJMSLMG9553-11-30 22:50:00 Test Item Value Reference Range Interpretation Comments MCV (test code = MCV) 87.0 81.0-99.0 N [facility] HospitalYuhehaxFROVCUKNRM6671-98-94 22:50:00 Test Item Value Reference Range Interpretation Comments WBC (test code = WBC) 11.7 3.7-10.4 H [facility] HospitalBahvosxMJHTAUTAQP3645-49-76 22:50:00 Test Item Value Reference Range Interpretation Comments RBC (test code = RBC) 4.68 4.20-5.40 N [facility] HospitalIpsweqoLHMFJRYVNQ4461-02-71 22:50:00 Test Item Value Reference Range Interpretation Comments Basophils # (test code 0.0 See_Comment N [Aut omated message] The = Basophils #) system which generated this result tra nsmitted reference range : <=0.2. The reference r leo was not used to int erpret this result as normal/abnormal . [facility] HospitalZknlprkCIMGWRSSQQ8786-25-18 22:50:00 Test Item Value Reference Range Interpretation Comments Basophils (test code = 0.2 See_Comment N [Aut omated message] The Basophils) system which ge nerated this result tra nsmitted reference range : <=1.0. The reference r leo was not used to int erpret this result as normal/abnormal . [facility] HospitalOgrooboCYUJAFUXWS7208-05-89 22:50:00 Test Item Value Reference Range Interpretation Comments Eosinophils # (test code 0.0 See_Comment N [A utomated message] The = Eosinophils #) system whic h generated this result tra nsmitted reference range : <=0.5. The reference r leo was not used to int erpret this result as normal/abnormal . [facility] HospitalZwuzsmcXYRCDZBMQQ3766-20-21 22:50:00 Test Item Value Reference Range Interpretation Comments Monocytes # (test code 0.4 See_Comment N [Aut omated message] The = Monocytes #) system which generated this result tra nsmitted reference range : <=0.8. The reference r leo was not used to int erpret this result as normal/abnormal . [facility] HospitalVzqylizKXHYBPRJBY9239-23-21 22:50:00 Test Item Value Reference Range Interpretation Comments Segs-Bands # (test code = Segs-Bands #) 10.6 1.5-8.1 H [facility] HospitalRmburkuXXUZPYIMUA6506-06-73 22:50:00 Test Item Value Reference Range Interpretation Comments Lymphocytes # (test code = Lymphocytes 0.7 1.0-5.5 L #) [facility] HospitalNdfjwkfFTQRVOAQSK1948-15-15 22:50:00 Test Item Value Reference Range Interpretation Comments Monocytes (test code = Monocytes) 3.4 2.0-12.0 N [facility] HospitalItbntrtOURDPVCCED8899-88-61 22:50:00 Test Item Value Reference Range Interpretation Comments Plt Morph (test code = Normal (03/14/2012 N Plt Morph) 17:50:00) [facility] HospitalQcbtjvoTUYBOVXJYN6115-03-92 22:50:00 Test Item Value Reference Range Interpretation Comments Lymphocytes (test code = Lymphocytes) 6.0 20.0-40.0 L [facility] HospitalOfpysrvINIITUTKQZ1777-71-77 22:50:00 Test Item Value Reference Range Interpretation Comments Eosinophils (test code = 0.0 See_Comment N [A utomated message] The Eosinophils) system which ge nerated this result tra nsmitted reference range : <=4.0. The reference r leo was not used to int erpret this result as normal/abnormal . [facility] HospitalCvcqcvuYKAXXDNKKI1181-54-07 22:50:00 Test Item Value Reference Range Interpretation Comments Segs (test code = Segs) 90.4 45.0-75.0 H [facility] HospitalAmjsamzZMKEFGCAPL5869-64-34 22:50:00 Test Item Value Reference Range Interpretation Comments RBC Morph (test code = Normal (03/14/2012 N RBC Morph) 17:50:00) [facility]ervilleIlkkjaxHGXNMEAAH5685-92-99 22:50:00 Test Item Value Reference Range Interpretation Comments S Preg (test code = S Negative *NA*(03/14/2012 Preg) 17:50:00) [facility]ervilleSapavbbLMLSZWORZ0179-88-85 22:50:00 Test Item Value Reference Range Interpretation Comments Lipase Lvl (test code = Lipase Lvl) 45 73-393 L [facility] [place]ervilleViurfmvLHJTJADDG5060-58-73 22:50:00 Test Item Value Reference Range Interpretation Comments A/G Ratio (test code = A/G Ratio) 1.2 0.7-1.6 N [facility] [place]ervilleIbeahpeERUHUTHVP2195-25-65 22:50:00 Test Item Value Reference Range Interpretation Comments Globulin (test code = Globulin) 3.8 2.0-4.0 N [facility] [place]ervilleVhewwwvFFRQUKROV2820-38-23 22:50:00 Test Item Value Reference Range Interpretation Comments B/C Ratio (test code = B/C Ratio) 21 6-25 N [facility] [place]ervilleVhvmaxiECZIRRWGZ5786-54-98 22:50:00 Test Item Value Reference Range Interpretation Comments AGAP (test code = AGAP) 16.8 10.0-20.0 N [facility] [place]ervilleMaandwjAKYHMMTJR5260-83-78 22:50:00 Test Item Value Reference Range Interpretation Comments Bili Total (test code = Bili Total) 1.1 0.2-1.3 N [facility]ervilleDnjsiitGOXDPKWZS9189-80-12 22:50:00 Test Item Value Reference Range Interpretation Comments Total Protein (test code = Total 8.2 6.4-8.4 N Protein) [facility]ervilleJjtlascWIKIBQNPT5007-10-92 22:50:00 Test Item Value Reference Range Interpretation Comments Potassium Lvl (test code = Potassium 3.8 3.5-5.1 N Lvl) [facility]ervilleWwfbhgnEFLTPGDNI1526-83-96 22:50:00 Test Item Value Reference Range Interpretation Comments Creatinine Lvl (test code = Creatinine 0.7 0.5-1.4 N Lvl) [facility] [place]ervilleBoxhmeeXFQUELUCH6646-83-20 22:50:00 Test Item Value Reference Range Interpretation Comments Sodium Lvl (test code = Sodium Lvl) 139 135-145 N [facility] [place]ervilleXmotyavNDPTIPFSF6282-93-47 22:50:00 Test Item Value Reference Range Interpretation Comments Chloride Lvl (test code = Chloride Lvl) 99 95-109 N [facility] [place]ervilleXszkwfyJSNCOCZJV7169-29-88 22:50:00 Test Item Value Reference Range Interpretation Comments CO2 (test code = CO2) 27 24-32 N [facility] [place]ervilleXxnyqbfUFJPYQOTX0049-00-48 22:50:00 Test Item Value Reference Range Interpretation Comments Glucose Lvl (test code = Glucose Lvl) 301 70-99 H [facility] [place]ervilleVfpkewwLUYAGPQCG8839-25-14 22:50:00 Test Item Value Reference Range Interpretation Comments BUN (test code = BUN) 15 7-22 N [facility]ervilleFzpxwlnSGGPVZBHN8639-76-31 22:50:00 Test Item Value Reference Range Interpretation Comments ALT (test code = ALT) 24 See_Comment N [Auto mated message] The system which ge nerated this result transmit rohit reference range : <=65. The reference range was not used to interpr et this result as reji l/abnormal. [facility]ervilleUgvtuddPPMGQYIBK0999-50-76 22:50:00 Test Item Value Reference Range Interpretation Comments AST (test code = AST) 20 See_Comment N [Auto mated message] The system which ge nerated this result transmit rohit reference range : <=37. The reference range was not used to interpr et this result as reji l/abnormal. [facility]ervilleYxqjmujYDKTNUOSC4594-16-24 22:50:00 Test Item Value Reference Range Interpretation Comments Alk Phos (test code = Alk Phos) 67 39-136 N [facility]ervilleKsfmosxQCACMOGIX2644-44-72 22:50:00 Test Item Value Reference Range Interpretation Comments Albumin Lvl (test code = Albumin Lvl) 4.4 3.5-5.0 N [facility] [place]ervilleYypuccdQTSDQPJDH8322-43-32 22:50:00 Test Item Value Reference Range Interpretation Comments Calcium Lvl (test code = Calcium Lvl) 9.9 8.5-10.5 N [facility] HospitalLyopdnuASYJAMVPDN4512-63-60 22:50:00 Test Item Value Reference Range Interpretation Comments MPV (test code = MPV) 11.8 7.4-10.4 H [facility] HospitalOasjmadVECRABVMBN4048-16-78 22:50:00 Test Item Value Reference Range Interpretation Comments MCHC (test code = MCHC) 35.9 32.0-36.0 N [facility] HospitalUbzurgkTUOFWKUXQA4640-95-21 22:50:00 Test Item Value Reference Range Interpretation Comments MCH (test code = MCH) 31.2 pg 27.0-31.0 H [facility] HospitalSileocxEEOOIJUMNA1729-62-79 22:50:00 Test Item Value Reference Range Interpretation Comments Platelet (test code = Platelet) 189 133-450 N [facility] HospitalYuyxdodNCCORQSXDL7075-09-14 22:50:00 Test Item Value Reference Range Interpretation Comments RDW (test code = RDW) 13.1 11.5-14.5 N [facility] HospitalZvurfajIPSEGFUKUI0828-54-63 22:50:00 Test Item Value Reference Range Interpretation Comments Hct (test code = Hct) 40.7 36.0-48.0 N [facility] HospitalSpyoypuFLLQXNLKLJ5334-91-38 22:50:00 Test Item Value Reference Range Interpretation Comments Hgb (test code = Hgb) 14.6 12.0-16.0 N [facility] HospitalOolbzlsSAXTYVCOLM8858-01-26 22:50:00 Test Item Value Reference Range Interpretation Comments MCV (test code = MCV) 87.0 81.0-99.0 N [facility] HospitalXgfqehaSIDNPQBYNY5123-31-53 22:50:00 Test Item Value Reference Range Interpretation Comments WBC (test code = WBC) 11.7 3.7-10.4 H [facility] HospitalPboyyloELHBDKXMDG9921-86-62 22:50:00 Test Item Value Reference Range Interpretation Comments RBC (test code = RBC) 4.68 4.20-5.40 N [facility] HospitalMdgfwktLSLJAMLKTX4650-66-23 22:50:00 Test Item Value Reference Range Interpretation Comments Basophils # (test code 0.0 See_Comment N [Aut omated message] The = Basophils #) system which generated this result tra nsmitted reference range : <=0.2. The reference r leo was not used to int erpret this result as normal/abnormal . [facility] HospitalAjgumbaPDVEUKUBZG2671-46-53 22:50:00 Test Item Value Reference Range Interpretation Comments Basophils (test code = 0.2 See_Comment N [Aut omated message] The Basophils) system which ge nerated this result tra nsmitted reference range : <=1.0. The reference r leo was not used to int erpret this result as normal/abnormal . [facility] HospitalIxcwubfQYMTAADJYZ9858-42-75 22:50:00 Test Item Value Reference Range Interpretation Comments Eosinophils # (test code 0.0 See_Comment N [A utomated message] The = Eosinophils #) system whic h generated this result tra nsmitted reference range : <=0.5. The reference r leo was not used to int erpret this result as normal/abnormal . [facility] HospitalIdfrbccFBRIMROMAC7904-32-67 22:50:00 Test Item Value Reference Range Interpretation Comments Monocytes # (test code 0.4 See_Comment N [Aut omated message] The = Monocytes #) system which generated this result tra nsmitted reference range : <=0.8. The reference r leo was not used to int erpret this result as normal/abnormal . [facility] HospitalYjvwhjkMTJVALJTGH5694-51-98 22:50:00 Test Item Value Reference Range Interpretation Comments Segs-Bands # (test code = Segs-Bands #) 10.6 1.5-8.1 H [facility] HospitalDnwiztcNERQMCRGOQ5154-56-09 22:50:00 Test Item Value Reference Range Interpretation Comments Lymphocytes # (test code = Lymphocytes 0.7 1.0-5.5 L #) [facility] HospitalTtrzwdwASZDUOBTRZ9431-38-71 22:50:00 Test Item Value Reference Range Interpretation Comments Monocytes (test code = Monocytes) 3.4 2.0-12.0 N [facility] HospitalOysvkrkUWLUNYGRRV8599-52-84 22:50:00 Test Item Value Reference Range Interpretation Comments Plt Morph (test code = Normal (03/14/2012 N Plt Morph) 17:50:00) [facility] HospitalZpxtdpcJYSENSTFEC7032-46-84 22:50:00 Test Item Value Reference Range Interpretation Comments Lymphocytes (test code = Lymphocytes) 6.0 20.0-40.0 L [facility] HospitalMliblipTCUBTHPSRV8488-29-10 22:50:00 Test Item Value Reference Range Interpretation Comments Eosinophils (test code = 0.0 See_Comment N [A utomated message] The Eosinophils) system which ge nerated this result tra nsmitted reference range : <=4.0. The reference r leo was not used to int erpret this result as normal/abnormal . [facility] HospitalJokneirGFFYIKQQIA8977-44-83 22:50:00 Test Item Value Reference Range Interpretation Comments Segs (test code = Segs) 90.4 45.0-75.0 H [facility] HospitalUmygutnISPJTGKWSF6305-32-67 22:50:00 Test Item Value Reference Range Interpretation Comments RBC Morph (test code = Normal (03/14/2012 N RBC Morph) 17:50:00) [facility]ervilleZlwvgfgZQKUFCQVQ2610-41-85 22:50:00 Test Item Value Reference Range Interpretation Comments S Preg (test code = S Negative *NA*(03/14/2012 Preg) 17:50:00) [facility]ervilleHiaaxgbUDYTBRNJH3343-65-34 22:50:00 Test Item Value Reference Range Interpretation Comments Lipase Lvl (test code = Lipase Lvl) 45 73-393 L [facility] [place]ervilleOiwguipCCPSHKDAK7476-25-75 22:50:00 Test Item Value Reference Range Interpretation Comments A/G Ratio (test code = A/G Ratio) 1.2 0.7-1.6 N [facility] [place]ervilleZliqiprPYIATQEKI2104-26-93 22:50:00 Test Item Value Reference Range Interpretation Comments Globulin (test code = Globulin) 3.8 2.0-4.0 N [facility] [place]ervilleJuazbwmPZQCGBBEM0873-24-96 22:50:00 Test Item Value Reference Range Interpretation Comments B/C Ratio (test code = B/C Ratio) 21 6-25 N [facility] [place]ervilleMtdjilwXMIIUADNT6686-37-64 22:50:00 Test Item Value Reference Range Interpretation Comments AGAP (test code = AGAP) 16.8 10.0-20.0 N [facility] [place]ervilleNtbodqfQXPRIRZCX3234-75-88 22:50:00 Test Item Value Reference Range Interpretation Comments Bili Total (test code = Bili Total) 1.1 0.2-1.3 N [facility] [place]ervilleDntvuqhTZBVZDNLM2940-56-47 22:50:00 Test Item Value Reference Range Interpretation Comments Total Protein (test code = Total 8.2 6.4-8.4 N Protein) [facility]ervilleJockoynGPVZXWNNC1106-18-64 22:50:00 Test Item Value Reference Range Interpretation Comments Potassium Lvl (test code = Potassium 3.8 3.5-5.1 N Lvl) [facility]ervilleLawnbrbIQJWMNDDO8005-51-93 22:50:00 Test Item Value Reference Range Interpretation Comments Creatinine Lvl (test code = Creatinine 0.7 0.5-1.4 N Lvl) [facility] [place]ervilleQqsissmMMPTLLLQP6118-57-74 22:50:00 Test Item Value Reference Range Interpretation Comments Sodium Lvl (test code = Sodium Lvl) 139 135-145 N [facility] DallasVfbmmjcNLHWIYVBF7372-28-48 22:50:00 Test Item Value Reference Range Interpretation Comments Chloride Lvl (test code = Chloride Lvl) 99 95-109 N [facility] DallasKiolepkVKSBVRSLN0703-40-32 22:50:00 Test Item Value Reference Range Interpretation Comments CO2 (test code = CO2) 27 24-32 N [facility] DallasGjxeeviYHRUPTAZP4830-09-10 22:50:00 Test Item Value Reference Range Interpretation Comments Glucose Lvl (test code = Glucose Lvl) 301 70-99 H [facility] DallasOpzeamxQEZEEJNQG8991-40-77 22:50:00 Test Item Value Reference Range Interpretation Comments BUN (test code = BUN) 15 7-22 N [facility]DmzwfqwKUCMKIQUU8103-36-98 22:50:00 Test Item Value Reference Range Interpretation Comments ALT (test code = ALT) 24 See_Comment N [Auto mated message] The system which ge nerated this result transmit rohit reference range : <=65. The reference range was not used to interpr et this result as reji l/abnormal. [facility] DallasTnyoifdZTBLNATQM7726-55-19 22:50:00 Test Item Value Reference Range Interpretation Comments AST (test code = AST) 20 See_Comment N [Auto mated message] The system which ge nerated this result transmit rohit reference range : <=37. The reference range was not used to interpr et this result as reji l/abnormal. [facility] DallasFtnjvwjPWNZEOFSP4784-76-19 22:50:00 Test Item Value Reference Range Interpretation Comments Alk Phos (test code = Alk Phos) 67 39-136 N [facility] DallasNleduznPNCLYXHXL8615-57-47 22:50:00 Test Item Value Reference Range Interpretation Comments Albumin Lvl (test code = Albumin Lvl) 4.4 3.5-5.0 N [facility] DallasDbyrmhcSKGTWDQVG7853-98-30 22:50:00 Test Item Value Reference Range Interpretation Comments Calcium Lvl (test code = Calcium Lvl) 9.9 8.5-10.5 N [facility]GnnzqymILJXWYLSWH5444-09-88 22:50:00 Test Item Value Reference Range Interpretation Comments MPV (test code = MPV) 11.8 7.4-10.4 H [facility] HospitalEsavldjLKZGWYBAVF9043-47-92 22:50:00 Test Item Value Reference Range Interpretation Comments MCHC (test code = MCHC) 35.9 32.0-36.0 N [facility] HospitalJreiklyCNHIBYMYYX3778-39-94 22:50:00 Test Item Value Reference Range Interpretation Comments MCH (test code = MCH) 31.2 pg 27.0-31.0 H [facility] HospitalInvbcflCZVNEEYIQO9810-33-44 22:50:00 Test Item Value Reference Range Interpretation Comments Platelet (test code = Platelet) 189 133-450 N [facility] HospitalWpviwclWHXYCVSCWV0969-63-22 22:50:00 Test Item Value Reference Range Interpretation Comments RDW (test code = RDW) 13.1 11.5-14.5 N [facility] HospitalKmejshnYTFNTCVEBI6981-18-60 22:50:00 Test Item Value Reference Range Interpretation Comments Hct (test code = Hct) 40.7 36.0-48.0 N [facility] HospitalJzwpvuyNSSWUHIZJG6384-91-45 22:50:00 Test Item Value Reference Range Interpretation Comments Hgb (test code = Hgb) 14.6 12.0-16.0 N [facility] HospitalWtldvryJWOLDNENPI0749-52-23 22:50:00 Test Item Value Reference Range Interpretation Comments MCV (test code = MCV) 87.0 81.0-99.0 N [facility] HospitalWwzzodwSWZASBRDDJ6743-09-46 22:50:00 Test Item Value Reference Range Interpretation Comments WBC (test code = WBC) 11.7 3.7-10.4 H [facility] HospitalUtqysqwHJAOLPLJVI9312-97-75 22:50:00 Test Item Value Reference Range Interpretation Comments RBC (test code = RBC) 4.68 4.20-5.40 N [facility] HospitalVqwenjmRQRIUITVMQ2605-43-10 22:50:00 Test Item Value Reference Range Interpretation Comments Basophils # (test code 0.0 See_Comment N [Aut omated message] The = Basophils #) system which generated this result tra nsmitted reference range : <=0.2. The reference r leo was not used to int erpret this result as normal/abnormal . [facility] HospitalEyvqhlcIMMOTQHSHR6129-59-32 22:50:00 Test Item Value Reference Range Interpretation Comments Basophils (test code = 0.2 See_Comment N [Aut omated message] The Basophils) system which ge nerated this result tra nsmitted reference range : <=1.0. The reference r leo was not used to int erpret this result as normal/abnormal . [facility] HospitalSowobzbRRFJSBFVAR8582-18-52 22:50:00 Test Item Value Reference Range Interpretation Comments Eosinophils # (test code 0.0 See_Comment N [A utomated message] The = Eosinophils #) system whic h generated this result tra nsmitted reference range : <=0.5. The reference r leo was not used to int erpret this result as normal/abnormal . [facility] HospitalDzbpfqtOVNRBPWTPB7430-65-06 22:50:00 Test Item Value Reference Range Interpretation Comments Monocytes # (test code 0.4 See_Comment N [Aut omated message] The = Monocytes #) system which generated this result tra nsmitted reference range : <=0.8. The reference r leo was not used to int erpret this result as normal/abnormal . [facility] HospitalSbkuxipAIAEFSANSM0322-67-15 22:50:00 Test Item Value Reference Range Interpretation Comments Segs-Bands # (test code = Segs-Bands #) 10.6 1.5-8.1 H [facility] HospitalYjafsoxRVZLZGZMTI0404-95-96 22:50:00 Test Item Value Reference Range Interpretation Comments Lymphocytes # (test code = Lymphocytes 0.7 1.0-5.5 L #) [facility] HospitalTnsiuveLVLQYNVVCK9573-10-27 22:50:00 Test Item Value Reference Range Interpretation Comments Monocytes (test code = Monocytes) 3.4 2.0-12.0 N [facility] HospitalKrfbwyfVBVRAQWROM7510-89-39 22:50:00 Test Item Value Reference Range Interpretation Comments Plt Morph (test code = Normal (03/14/2012 N Plt Morph) 17:50:00) [facility] HospitalTvjhzjbDYCBWFYVVY3698-07-09 22:50:00 Test Item Value Reference Range Interpretation Comments Lymphocytes (test code = Lymphocytes) 6.0 20.0-40.0 L [facility] HospitalOearghjHQUPJFCUWO3085-27-01 22:50:00 Test Item Value Reference Range Interpretation Comments Eosinophils (test code = 0.0 See_Comment N [A utomated message] The Eosinophils) system which ge nerated this result tra nsmitted reference range : <=4.0. The reference r leo was not used to int erpret this result as normal/abnormal . [facility] HospitalJzbvchySVFJMUEINN1633-46-78 22:50:00 Test Item Value Reference Range Interpretation Comments Segs (test code = Segs) 90.4 45.0-75.0 H [facility] HospitalJqdleaxERRGLCPJGB4829-68-78 22:50:00 Test Item Value Reference Range Interpretation Comments RBC Morph (test code = Normal (03/14/2012 N RBC Morph) 17:50:00) [facility]EnbrufsARTEEWCCD3487-59-95 22:50:00 Test Item Value Reference Range Interpretation Comments S Preg (test code = S Negative *NA*(03/14/2012 Preg) 17:50:00) [facility]IonnbzaEBWMDOOZL4581-64-65 22:50:00 Test Item Value Reference Range Interpretation Comments Lipase Lvl (test code = Lipase Lvl) 45 73-393 L [facility] [place]ervilleZptklfvKYJILMGOV9379-95-48 22:50:00 Test Item Value Reference Range Interpretation Comments A/G Ratio (test code = A/G Ratio) 1.2 0.7-1.6 N [facility] [place]ervilleBsdcmorLTCTTNAFU7274-28-31 22:50:00 Test Item Value Reference Range Interpretation Comments Globulin (test code = Globulin) 3.8 2.0-4.0 N [facility] [place]PhpxdpyZQKQDDSHG1186-59-04 22:50:00 Test Item Value Reference Range Interpretation Comments B/C Ratio (test code = B/C Ratio) 21 6-25 N [facility] [place]ZfqxyngPKWHZYWPL4891-01-62 22:50:00 Test Item Value Reference Range Interpretation Comments AGAP (test code = AGAP) 16.8 10.0-20.0 N [facility] [place]XhzzsdbNSHXMZHUP3550-29-08 22:50:00 Test Item Value Reference Range Interpretation Comments Bili Total (test code = Bili Total) 1.1 0.2-1.3 N [facility] [place]NpvsaxrSBELORPHS7732-93-77 22:50:00 Test Item Value Reference Range Interpretation Comments Total Protein (test code = Total 8.2 6.4-8.4 N Protein) [facility]ervilleFikcyvyBQPEQYBEO5048-07-05 22:50:00 Test Item Value Reference Range Interpretation Comments Potassium Lvl (test code = Potassium 3.8 3.5-5.1 N Lvl) [facility]LymvvewXWXFGLTDO6181-44-26 22:50:00 Test Item Value Reference Range Interpretation Comments Creatinine Lvl (test code = Creatinine 0.7 0.5-1.4 N Lvl) [facility] [place]ervilleLdgwzboCMPZZANRD9549-09-90 22:50:00 Test Item Value Reference Range Interpretation Comments Sodium Lvl (test code = Sodium Lvl) 139 135-145 N [facility] [place]ervilleIoralomNEWFDHJVE5439-16-57 22:50:00 Test Item Value Reference Range Interpretation Comments Chloride Lvl (test code = Chloride Lvl) 99 95-109 N [facility] [place]YlybahtZOILNJPXD1229-18-31 22:50:00 Test Item Value Reference Range Interpretation Comments CO2 (test code = CO2) 27 24-32 N [facility] [place]ervilleHsfalfwOZZGZPULB4699-42-86 22:50:00 Test Item Value Reference Range Interpretation Comments Glucose Lvl (test code = Glucose Lvl) 301 70-99 H [facility] [place]ervilleJpeyyjyMTJRQRWHV7849-75-99 22:50:00 Test Item Value Reference Range Interpretation Comments BUN (test code = BUN) 15 7-22 N [facility] [place]ervilleQkggxigCWBVZFXGL7915-40-48 22:50:00 Test Item Value Reference Range Interpretation Comments ALT (test code = ALT) 24 See_Comment N [Auto mated message] The system which ge nerated this result transmit rohit reference range : <=65. The reference range was not used to interpr et this result as reji l/abnormal. [facility]ervilleFfuwkzxXIEBHBMOE5667-40-13 22:50:00 Test Item Value Reference Range Interpretation Comments AST (test code = AST) 20 See_Comment N [Auto mated message] The system which ge nerated this result transmit rohit reference range : <=37. The reference range was not used to interpr et this result as reji l/abnormal. [facility]ervilleWbtobihNKBCONMKN5385-53-32 22:50:00 Test Item Value Reference Range Interpretation Comments Alk Phos (test code = Alk Phos) 67 39-136 N [facility] [place]ervilleXkiszlqOIWLSIKMD7891-62-30 22:50:00 Test Item Value Reference Range Interpretation Comments Albumin Lvl (test code = Albumin Lvl) 4.4 3.5-5.0 N [facility]ervilleMwqkgtxSFPFFXNDE6939-25-77 22:50:00 Test Item Value Reference Range Interpretation Comments Calcium Lvl (test code = Calcium Lvl) 9.9 8.5-10.5 N [facility] HospitalOymdibeDATOVGGNUT0595-17-71 22:50:00 Test Item Value Reference Range Interpretation Comments MPV (test code = MPV) 11.8 7.4-10.4 H [facility] HospitalOogeqhdNCEELUQPFM9998-34-99 22:50:00 Test Item Value Reference Range Interpretation Comments MCHC (test code = MCHC) 35.9 32.0-36.0 N [facility] HospitalSbrtuqlLAQMLCPEEN4005-51-59 22:50:00 Test Item Value Reference Range Interpretation Comments MCH (test code = MCH) 31.2 pg 27.0-31.0 H [facility] HospitalDjwboymIYAIBICCXM8192-01-91 22:50:00 Test Item Value Reference Range Interpretation Comments Platelet (test code = Platelet) 189 133-450 N [facility] HospitalZgmjcduOIOCNXPNQE8628-44-52 22:50:00 Test Item Value Reference Range Interpretation Comments RDW (test code = RDW) 13.1 11.5-14.5 N [facility] HospitalUafkquaAYGPTDYSLW3049-11-05 22:50:00 Test Item Value Reference Range Interpretation Comments Hct (test code = Hct) 40.7 36.0-48.0 N [facility] HospitalXqwtocvXBULZUHHQL9413-54-63 22:50:00 Test Item Value Reference Range Interpretation Comments Hgb (test code = Hgb) 14.6 12.0-16.0 N [facility] HospitalYlgnypbAVBNVQPJWZ9246-41-24 22:50:00 Test Item Value Reference Range Interpretation Comments MCV (test code = MCV) 87.0 81.0-99.0 N [facility] HospitalAaqwftjKLIOMHRJZE8960-08-69 22:50:00 Test Item Value Reference Range Interpretation Comments WBC (test code = WBC) 11.7 3.7-10.4 H [facility] HospitalPoqpycyXUCONEYJVH6067-40-98 22:50:00 Test Item Value Reference Range Interpretation Comments RBC (test code = RBC) 4.68 4.20-5.40 N [facility] HospitalZyvgzipSRVHNXENFQ9731-70-61 22:50:00 Test Item Value Reference Range Interpretation Comments Basophils # (test code 0.0 See_Comment N [Aut omated message] The = Basophils #) system which generated this result tra nsmitted reference range : <=0.2. The reference r leo was not used to int erpret this result as normal/abnormal . [facility] HospitalNfbaixtYBGVGREJZG0588-53-91 22:50:00 Test Item Value Reference Range Interpretation Comments Basophils (test code = 0.2 See_Comment N [Aut omated message] The Basophils) system which ge nerated this result tra nsmitted reference range : <=1.0. The reference r leo was not used to int erpret this result as normal/abnormal . [facility] HospitalPczxzsnKMUVDRJISG7215-07-89 22:50:00 Test Item Value Reference Range Interpretation Comments Eosinophils # (test code 0.0 See_Comment N [A utomated message] The = Eosinophils #) system whic h generated this result tra nsmitted reference range : <=0.5. The reference r leo was not used to int erpret this result as normal/abnormal . [facility] HospitalBlppncfEXJLKFDGNQ1255-08-27 22:50:00 Test Item Value Reference Range Interpretation Comments Monocytes # (test code 0.4 See_Comment N [Aut omated message] The = Monocytes #) system which generated this result tra nsmitted reference range : <=0.8. The reference r leo was not used to int erpret this result as normal/abnormal . [facility] HospitalQdwjszaBJQHMIMZEV1152-27-06 22:50:00 Test Item Value Reference Range Interpretation Comments Segs-Bands # (test code = Segs-Bands #) 10.6 1.5-8.1 H [facility] HospitalSehukhyTPZZTPFVTQ2765-99-34 22:50:00 Test Item Value Reference Range Interpretation Comments Lymphocytes # (test code = Lymphocytes 0.7 1.0-5.5 L #) [facility] HospitalMxshxpnOFTGPASFDE0782-30-95 22:50:00 Test Item Value Reference Range Interpretation Comments Monocytes (test code = Monocytes) 3.4 2.0-12.0 N [facility] HospitalKtqsediLWOIDPBATC3288-50-41 22:50:00 Test Item Value Reference Range Interpretation Comments Plt Morph (test code = Normal (03/14/2012 N Plt Morph) 17:50:00) [facility] HospitalPwpektvOLWWPAZVWO0373-64-42 22:50:00 Test Item Value Reference Range Interpretation Comments Lymphocytes (test code = Lymphocytes) 6.0 20.0-40.0 L [facility] HospitalKhvtsrcMNGMHLWXRI9229-95-62 22:50:00 Test Item Value Reference Range Interpretation Comments Eosinophils (test code = 0.0 See_Comment N [A utomated message] The Eosinophils) system which ge nerated this result tra nsmitted reference range : <=4.0. The reference r leo was not used to int erpret this result as normal/abnormal . [facility] HospitalDqjvavgXDBNXICGFZ3505-39-82 22:50:00 Test Item Value Reference Range Interpretation Comments Segs (test code = Segs) 90.4 45.0-75.0 H [facility] HospitalGeredooOCKIOTHHZQ3833-75-54 22:50:00 Test Item Value Reference Range Interpretation Comments RBC Morph (test code = Normal (03/14/2012 N RBC Morph) 17:50:00) [facility]KfcuztySIIKYCQPJ8176-07-90 22:50:00 Test Item Value Reference Range Interpretation Comments S Preg (test code = S Negative *NA*(03/14/2012 Preg) 17:50:00) [facility] [place]TagdmsyHFFBFUWKX7319-16-71 22:50:00 Test Item Value Reference Range Interpretation Comments Lipase Lvl (test code = Lipase Lvl) 45 73-393 L [facility] [place]ervilleHnmirldZEEPWJCJH7933-81-59 22:50:00 Test Item Value Reference Range Interpretation Comments A/G Ratio (test code = A/G Ratio) 1.2 0.7-1.6 N [facility]ervilleBvitiabGNEFUSZDQ0331-64-54 22:50:00 Test Item Value Reference Range Interpretation Comments Globulin (test code = Globulin) 3.8 2.0-4.0 N [facility] [place]DtsctmwPVNFHLMPM0752-58-94 22:50:00 Test Item Value Reference Range Interpretation Comments B/C Ratio (test code = B/C Ratio) 21 6-25 N [facility] [place]ervilleEzcwoahECUATCUUT6477-57-51 22:50:00 Test Item Value Reference Range Interpretation Comments AGAP (test code = AGAP) 16.8 10.0-20.0 N [facility] [place]ervilleRqhofmoTXAOVFJQW0516-95-97 22:50:00 Test Item Value Reference Range Interpretation Comments Bili Total (test code = Bili Total) 1.1 0.2-1.3 N [facility] [place]ervilleGyrdeilMUJRKZAFC4758-79-58 22:50:00 Test Item Value Reference Range Interpretation Comments Total Protein (test code = Total 8.2 6.4-8.4 N Protein) [facility] [place]VwvxhvtVPNRFTABK0329-21-68 22:50:00 Test Item Value Reference Range Interpretation Comments Potassium Lvl (test code = Potassium 3.8 3.5-5.1 N Lvl) [facility]ervilleCbwjjfpLPGYWPLIF4697-62-16 22:50:00 Test Item Value Reference Range Interpretation Comments Creatinine Lvl (test code = Creatinine 0.7 0.5-1.4 N Lvl) [facility] [place]OemljmnZARHNQUYX8078-25-67 22:50:00 Test Item Value Reference Range Interpretation Comments Sodium Lvl (test code = Sodium Lvl) 139 135-145 N [facility] [place]ervilleBxomoehEFOXMFTRH5846-32-44 22:50:00 Test Item Value Reference Range Interpretation Comments Chloride Lvl (test code = Chloride Lvl) 99 95-109 N [facility] [place]KzejpttBQJOAUSYP1589-88-57 22:50:00 Test Item Value Reference Range Interpretation Comments CO2 (test code = CO2) 27 24-32 N [facility] [place]JyetrwcSLTDQUCBQ5784-21-47 22:50:00 Test Item Value Reference Range Interpretation Comments Glucose Lvl (test code = Glucose Lvl) 301 70-99 H [facility] [place]ervilleCzhgkyzNFRWSZTSV4537-15-73 22:50:00 Test Item Value Reference Range Interpretation Comments BUN (test code = BUN) 15 7-22 N [facility]OltvwozLFMQBCJWZ4925-15-42 22:50:00 Test Item Value Reference Range Interpretation Comments ALT (test code = ALT) 24 See_Comment N [Auto mated message] The system which ge nerated this result transmit rohit reference range : <=65. The reference range was not used to interpr et this result as reji l/abnormal. [facility] [place]ervillePhsbwhyBDUGZLEFN0040-95-51 22:50:00 Test Item Value Reference Range Interpretation Comments AST (test code = AST) 20 See_Comment N [Auto mated message] The system which ge nerated this result transmit rohit reference range : <=37. The reference range was not used to interpr et this result as reji l/abnormal. [facility]PlyxyceMGMMRLTJH8956-72-96 22:50:00 Test Item Value Reference Range Interpretation Comments Alk Phos (test code = Alk Phos) 67 39-136 N [facility] [place]ervilleNcfinlkSSIVMGRPK5869-91-73 22:50:00 Test Item Value Reference Range Interpretation Comments Albumin Lvl (test code = Albumin Lvl) 4.4 3.5-5.0 N [facility] [place]XhhhhwvLZXJJWROV9803-47-47 22:50:00 Test Item Value Reference Range Interpretation Comments Calcium Lvl (test code = Calcium Lvl) 9.9 8.5-10.5 N [facility] HospitalGvllcisGEDRAFQIDS4074-72-34 22:50:00 Test Item Value Reference Range Interpretation Comments MPV (test code = MPV) 11.8 7.4-10.4 H [facility] HospitalIovdmrpRIYNFKRMRS9232-96-35 22:50:00 Test Item Value Reference Range Interpretation Comments MCHC (test code = MCHC) 35.9 32.0-36.0 N [facility] HospitalNxeabcbVCBZYLWNAA7298-88-00 22:50:00 Test Item Value Reference Range Interpretation Comments MCH (test code = MCH) 31.2 pg 27.0-31.0 H [facility] HospitalDrjjyfuJBFZAIOMYO5657-43-08 22:50:00 Test Item Value Reference Range Interpretation Comments Platelet (test code = Platelet) 189 133-450 N [facility] HospitalVfmabizBFKHWPWGRB9576-10-41 22:50:00 Test Item Value Reference Range Interpretation Comments RDW (test code = RDW) 13.1 11.5-14.5 N [facility] HospitalVxktqczUYQHOQEOQU5669-12-10 22:50:00 Test Item Value Reference Range Interpretation Comments Hct (test code = Hct) 40.7 36.0-48.0 N [facility] HospitalEyohbnyDLCTWEVVXQ2601-50-24 22:50:00 Test Item Value Reference Range Interpretation Comments Hgb (test code = Hgb) 14.6 12.0-16.0 N [facility] HospitalHdlxzqqRBRQYYLPMK8099-32-78 22:50:00 Test Item Value Reference Range Interpretation Comments MCV (test code = MCV) 87.0 81.0-99.0 N [facility] HospitalDkfhjqrAODBWIQCLX7116-77-14 22:50:00 Test Item Value Reference Range Interpretation Comments WBC (test code = WBC) 11.7 3.7-10.4 H [facility] HospitalJyksysdCCAMOWYLAH1885-56-44 22:50:00 Test Item Value Reference Range Interpretation Comments RBC (test code = RBC) 4.68 4.20-5.40 N [facility] HospitalAozjgrfIRGSARSFRC7856-49-97 22:50:00 Test Item Value Reference Range Interpretation Comments Basophils # (test code 0.0 See_Comment N [Aut omated message] The = Basophils #) system which generated this result tra nsmitted reference range : <=0.2. The reference r leo was not used to int erpret this result as normal/abnormal . [facility] HospitalFuiqbszXBFVCGZLHP4266-60-56 22:50:00 Test Item Value Reference Range Interpretation Comments Basophils (test code = 0.2 See_Comment N [Aut omated message] The Basophils) system which ge nerated this result tra nsmitted reference range : <=1.0. The reference r leo was not used to int erpret this result as normal/abnormal . [facility] HospitalJkxghjgATRTETOJXS0920-50-95 22:50:00 Test Item Value Reference Range Interpretation Comments Eosinophils # (test code 0.0 See_Comment N [A utomated message] The = Eosinophils #) system whic h generated this result tra nsmitted reference range : <=0.5. The reference r leo was not used to int erpret this result as normal/abnormal . [facility] HospitalCfqjehvXZQBDPEDJF2184-22-68 22:50:00 Test Item Value Reference Range Interpretation Comments Monocytes # (test code 0.4 See_Comment N [Aut omated message] The = Monocytes #) system which generated this result tra nsmitted reference range : <=0.8. The reference r leo was not used to int erpret this result as normal/abnormal . [facility] HospitalRuztblmAOIJXOVKCL9077-56-68 22:50:00 Test Item Value Reference Range Interpretation Comments Segs-Bands # (test code = Segs-Bands #) 10.6 1.5-8.1 H [facility] HospitalXjomcbdBVGMKVTZNL4857-80-41 22:50:00 Test Item Value Reference Range Interpretation Comments Lymphocytes # (test code = Lymphocytes 0.7 1.0-5.5 L #) [facility] HospitalAahrxuvPQBUSLTDBD4685-75-08 22:50:00 Test Item Value Reference Range Interpretation Comments Monocytes (test code = Monocytes) 3.4 2.0-12.0 N [facility] HospitalTrgedafECSRFPOFOK1717-68-55 22:50:00 Test Item Value Reference Range Interpretation Comments Plt Morph (test code = Normal (03/14/2012 N Plt Morph) 17:50:00) [facility] HospitalSjyczciBDOSRDXJLE7675-28-04 22:50:00 Test Item Value Reference Range Interpretation Comments Lymphocytes (test code = Lymphocytes) 6.0 20.0-40.0 L [facility] ResourcesRpiinydWEXBRVVSWC1155-43-52 22:50:00 Test Item Value Reference Range Interpretation Comments Eosinophils (test code = 0.0 See_Comment N [A utomated message] The Eosinophils) system which ge nerated this result tra nsmitted reference range : <=4.0. The reference r leo was not used to int erpret this result as normal/abnormal . [facility]RtlgzsdUAKKANKWMR7501-99-38 22:50:00 Test Item Value Reference Range Interpretation Comments Segs (test code = Segs) 90.4 45.0-75.0 H [facility] ResourcesLlxyjjfUWFBYKFHWU1579-69-33 22:50:00 Test Item Value Reference Range Interpretation Comments RBC Morph (test code = Normal (03/14/2012 N RBC Morph) 17:50:00) [facility] GLUCOSE [id number] 23:43:00 Test Item Value Reference Range Interpretation Comments Gluc POC Lifscn (test code = Gluc POC 167 70-99 H Lifscn) [facility] GLUCOSE [id number] 23:43:00 Test Item Value Reference Range Interpretation Comments Comment1 (test code = Comment1) Notify RN/MD [facility] GLUCOSE [id number] 23:43:00 Test Item Value Reference Range Interpretation Comments Comment2 (test code = Comment2) Sliding Scale [facility] [id number] 23:43:00 Test Item Value Reference Range Interpretation Comments Gluc POC Lifscn (test code = Gluc POC 167 70-99 H Lifscn) [facility] GLUCOSE [id number] 23:43:00 Test Item Value Reference Range Interpretation Comments Comment1 (test code = Comment1) Notify RN/MD [facility] GLUCOSE [id number] 23:43:00 Test Item Value Reference Range Interpretation Comments Comment2 (test code = Comment2) Sliding Scale [facility] [id number] 23:43:00 Test Item Value Reference Range Interpretation Comments Gluc POC Lifscn (test code = Gluc POC 167 70-99 H Lifscn) [facility] GLUCOSE [id number] 23:43:00 Test Item Value Reference Range Interpretation Comments Comment1 (test code = Comment1) [facility] RN/ [facility] [id number] 23:43:00 Test Item Value Reference Range Interpretation Comments Comment2 (test code = Comment2) [facility]iding Scale [facility] [id number] 23:43:00 Test Item Value Reference Range Interpretation Comments Gluc POC Lifscn (test code = Gluc POC 167 70-99 H Lifscn) [facility] GL[facility] [id number] 23:43:00 Test Item Value Reference Range Interpretation Comments Comment1 (test code = Comment1) [facility] RN/ [facility] [id number] 23:43:00 Test Item Value Reference Range Interpretation Comments Comment2 (test code = Comment2) Sliding Scale [facility] GL[facility] [id number] 23:43:00 Test Item Value Reference Range Interpretation Comments Gluc POC Lifscn (test code = Gluc POC 167 70-99 H Lifscn) [facility] GLU[facility] [id number] 23:43:00 Test Item Value Reference Range Interpretation Comments Comment1 (test code = Comment1) Notify RN/ [facility] GLU[facility] [id number] 23:43:00 Test Item Value Reference Range Interpretation Comments Comment2 (test code = Comment2) Sliding Scale [facility] GLU[facility] [id number] 17:40:00 Test Item Value Reference Range Interpretation Comments Gluc POC Lifscn (test code = Gluc POC 189 70-99 H Lifscn) [facility] GLU[facility] [id number] 17:40:00 Test Item Value Reference Range Interpretation Comments Comment1 (test code = Comment1) [facility] RN/ [facility] [id number] 17:40:00 Test Item Value Reference Range Interpretation Comments Comment2 (test code = Comment2) Sliding Scale [facility] GL[facility] [id number] 17:40:00 Test Item Value Reference Range Interpretation Comments Gluc POC Lifscn (test code = Gluc POC 189 70-99 H Lifscn) [facility] GLU[facility] [id number] 17:40:00 Test Item Value Reference Range Interpretation Comments Comment1 (test code = Comment1) Notify RN/ [facility] GLU[facility] [id number] 17:40:00 Test Item Value Reference Range Interpretation Comments Comment2 (test code = Comment2) [facility] [id number] 17:40:00 Test Item Value Reference Range Interpretation Comments Gluc POC Lifscn (test code = Gluc POC 189 70-99 H Lifscn) [facility] [id number] 17:40:00 Test Item Value Reference Range Interpretation Comments Comment1 (test code = Comment1) Notify RN/ [facility] [id number] 17:40:00 Test Item Value Reference Range Interpretation Comments Comment2 (test code = Comment2) [facility]iding [facility] [id number] 17:40:00 Test Item Value Reference Range Interpretation Comments Gluc POC Lifscn (test code = Gluc POC 189 70-99 H Lifscn) [facility] GLU[facility] [id number] 17:40:00 Test Item Value Reference Range Interpretation Comments Comment1 (test code = Comment1) [facility]ify RN/ [facility] [id number] 17:40:00 Test Item Value Reference Range Interpretation Comments Comment2 (test code = Comment2) Sliding Scale [facility] [id number] 17:40:00 Test Item Value Reference Range Interpretation Comments Gluc POC Lifscn (test code = Gluc POC 189 70-99 H Lifscn) [facility] [id number] 17:40:00 Test Item Value Reference Range Interpretation Comments Comment1 (test code = Comment1) [facility]ify RN/ [facility] [id number] 17:40:00 Test Item Value Reference Range Interpretation Comments Comment2 (test code = Comment2) Sliding Scale [facility] [id number] 13:34:00 Test Item Value Reference Range Interpretation Comments Comment2 (test code = Comment2) Sliding Scale [facility] [id number] 13:34:00 Test Item Value Reference Range Interpretation Comments Gluc POC Lifscn (test code = Gluc POC 110 70-99 H Lifscn) [facility] [id number] 13:34:00 Test Item Value Reference Range Interpretation Comments Comment1 (test code = Comment1) [facility]ify RN/ [facility] [id number] 13:34:00 Test Item Value Reference Range Interpretation Comments Comment2 (test code = Comment2) Sliding Scale [facility] [id number] 13:34:00 Test Item Value Reference Range Interpretation Comments Gluc POC Lifscn (test code = Gluc POC 110 70-99 H Lifscn) [facility] GLU[facility] [id number] 13:34:00 Test Item Value Reference Range Interpretation Comments Comment1 (test code = Comment1) Notify DARNELL [facility] GLU[facility] [id number] 13:34:00 Test Item Value Reference Range Interpretation Comments Comment2 (test code = Comment2) Sliding Scale [facility] GLUCOSE [id number] 13:34:00 Test Item Value Reference Range Interpretation Comments Gluc POC Lifscn (test code = Gluc POC 110 70-99 H Lifscn) [facility] GLUCOSE [id number] 13:34:00 Test Item Value Reference Range Interpretation Comments Comment1 (test code = Comment1) Notify DARNELL [facility] [id number] 13:34:00 Test Item Value Reference Range Interpretation Comments Comment2 (test code = Comment2) Sliding Scale [facility] GLUCOSE [id number] 13:34:00 Test Item Value Reference Range Interpretation Comments Gluc POC Lifscn (test code = Gluc POC 110 70-99 H Lifscn) [facility] GLUCOSE [id number] 13:34:00 Test Item Value Reference Range Interpretation Comments Comment1 (test code = Comment1) Notifcaron PATRICK [facility] GLUCOSE [id number] 13:34:00 Test Item Value Reference Range Interpretation Comments Comment2 (test code = Comment2) Sliding Scale [facility] GLU[facility] [id number] 13:34:00 Test Item Value Reference Range Interpretation Comments Gluc POC Lifscn (test code = Gluc POC 110 70-99 H Lifscn) [facility] GLUCOSE [id number] 13:34:00 Test Item Value Reference Range Interpretation Comments Comment1 (test code = Comment1) Notifcaron PATRICK [facility] DallasHgqmgqiRDFRHSVHQ4029-01-51 00:00:00 Test Item Value Reference Range Interpretation Comments U Preg (test code = U Negative (11/28/2011 N Preg) 19:00:00) [facility] Cent[id number] 00:00:00 Test Item Value Reference Range Interpretation Comments Micro? (test code = Performed (11/28/2011 N Micro?) 19:00:00) [facility] [id number] 00:00:00 Test Item Value Reference Range Interpretation Comments UA Sq Epi (test code Occasional /LPF N = UA Sq Epi) (11/28/2011 19:00:00) [facility] [id number] 00:00:00 Test Item Value Reference Range Interpretation Comments UA RBC (test None Seen See_Comment N [Automated mes pastor] code = UA RBC) (11/28/2011 The system wh ich 19:00:00) generated this result transmitted ref erence range: <=2. The reference range was not used to int erpret this result as normal/abnormal . [facility] Cent[id number] 00:00:00 Test Item Value Reference Range Interpretation Comments UA WBC (test code Occasional See_Comment [Automate d message] The = UA WBC) system which ge nerated this result tra nsmitted reference range : <=5. The reference range was not used to interpr et this result as normal/abnormal . [facility] Cent[id number] 00:00:00 Test Item Value Reference Range Interpretation Comments UA Protein (test code Negative mg/dL N = UA Protein) (11/28/2011 19:00:00) [facility] [id number] 00:00:00 Test Item Value Reference Range Interpretation Comments UA pH (test code = UA pH) 7.0 1 5.0-8.0 N [facility] C[id number] 00:00:00 Test Item Value Reference Range Interpretation Comments UA Spec Grav (test code = UA Spec 1.020 1 N Grav) [facility] [id number] 00:00:00 Test Item Value Reference Range Interpretation Comments UA Turbidity (test code = Clear (11/28/2011 N UA Turbidity) 19:00:00) [facility] C[id number] 00:00:00 Test Item Value Reference Range Interpretation Comments UA Color (test code = Yellow *NA*(11/28/2011 UA Color) 19:00:00) [facility] Resourc[id number] 00:00:00 Test Item Value Reference Range Interpretation Comments UA Urobilinogen (test code = UA 0.2 0.1-1.0 N Urobilinogen) [facility] CenterCqhnfdjEPIQKJJHDJ8288-15-15 00:00:00 Test Item Value Reference Range Interpretation Comments UA Blood (test code = Negative (11/28/2011 N UA Blood) 19:00:00) [facility] ResourcesQwvwshhGVTHSPIHOV2371-82-28 00:00:00 Test Item Value Reference Range Interpretation Comments UA Bili (test code = Negative *NA*(11/28/2011 UA Bili) 19:00:00) [facility] Resourc[id number] 00:00:00 Test Item Value Reference Range Interpretation Comments UA Ketones (test code = >=80 mg/dL A UA Ketones) *ABN*(11/28/2011 19:00:00) [facility] ResourcesArxmpkgTPPRSCKAOE1312-10-45 00:00:00 Test Item Value Reference Range Interpretation Comments UA Glucose (test code = >=1000 mg/dL A UA Glucose) *ABN*(11/28/2011 19:00:00) [facility] ResourcesCcwtegoNOKYRWRZRS4902-19-46 00:00:00 Test Item Value Reference Range Interpretation Comments UA Nitrite (test code Negative (11/28/2011 N = UA Nitrite) 19:00:00) [facility] Resourc[id number] 00:00:00 Test Item Value Reference Range Interpretation Comments UA Leuk Est (test Negative (11/28/2011 N code = UA Leuk Est) 19:00:00) [facility] ResourcesYujeeraIEIQNOPZL2189-06-68 00:00:00 Test Item Value Reference Range Interpretation Comments U Preg (test code = U Negative (11/28/2011 N Preg) 19:00:00) [facility] Cent[id number] 00:00:00 Test Item Value Reference Range Interpretation Comments Micro? (test code = Performed (11/28/2011 N Micro?) 19:00:00) [facility] CenterVsmxhztSVZPUMZOYK2378-31-02 00:00:00 Test Item Value Reference Range Interpretation Comments UA Sq Epi (test code Occasional /LPF N = UA Sq Epi) (11/28/2011 19:00:00) [facility] Cent[id number] 00:00:00 Test Item Value Reference Range Interpretation Comments UA RBC (test None Seen See_Comment N [Automated mes pastor] code = UA RBC) (11/28/2011 The system wh ich 19:00:00) generated this result transmitted ref erence range: <=2. The reference range was not used to int erpret this result as normal/abnormal . [facility] CenterFzgopcqWREFSXFITY7691-48-81 00:00:00 Test Item Value Reference Range Interpretation Comments UA WBC (test code Occasional See_Comment [Automate d message] The = UA WBC) system which ge nerated this result tra nsmitted reference range : <=5. The reference range was not used to interpr et this result as normal/abnormal . [facility] Cent[id number] 00:00:00 Test Item Value Reference Range Interpretation Comments UA Protein (test code Negative mg/dL N = UA Protein) (11/28/2011 19:00:00) [facility] CenterJyoluesOXGHWFIXDQ5153-81-77 00:00:00 Test Item Value Reference Range Interpretation Comments UA pH (test code = UA pH) 7.0 1 5.0-8.0 N [facility] CenterKjmjyugDDHFOJYDFY3429-61-98 00:00:00 Test Item Value Reference Range Interpretation Comments UA Spec Grav (test code = UA Spec 1.020 1 N Grav) [facility] CenterJiyuegaJSZPVSBMQA1706-91-06 00:00:00 Test Item Value Reference Range Interpretation Comments UA Turbidity (test code = Clear (11/28/2011 N UA Turbidity) 19:00:00) [facility] CenterNolhrmnMXZKXAUGFO4149-14-13 00:00:00 Test Item Value Reference Range Interpretation Comments UA Color (test code = Yellow *NA*(11/28/2011 UA Color) 19:00:00) [facility] CenterZlkuncgUDMJSEBNEW6244-53-75 00:00:00 Test Item Value Reference Range Interpretation Comments UA Urobilinogen (test code = UA 0.2 0.1-1.0 N Urobilinogen) [facility] CenterDihoestOUPNEWYJCF1095-24-41 00:00:00 Test Item Value Reference Range Interpretation Comments UA Blood (test code = Negative (11/28/2011 N UA Blood) 19:00:00) [facility] DallasWtqrvqhBKTQOFKGMY2226-35-06 00:00:00 Test Item Value Reference Range Interpretation Comments UA Bili (test code = Negative *NA*(11/28/2011 UA Bili) 19:00:00) [facility] DallasHclbdxuTFDYVTKCRI7382-45-59 00:00:00 Test Item Value Reference Range Interpretation Comments UA Ketones (test code = >=80 mg/dL A UA Ketones) *ABN*(11/28/2011 19:00:00) [facility] DallasOxfbnxzZVZHOOJJWE8144-02-53 00:00:00 Test Item Value Reference Range Interpretation Comments UA Glucose (test code = >=1000 mg/dL A UA Glucose) *ABN*(11/28/2011 19:00:00) [facility] DallasMpvkvryUWXNVVLGHK8257-96-22 00:00:00 Test Item Value Reference Range Interpretation Comments UA Nitrite (test code Negative (11/28/2011 N = UA Nitrite) 19:00:00) [facility] DallasNclqldpBNXVWZKNPJ2420-26-25 00:00:00 Test Item Value Reference Range Interpretation Comments UA Leuk Est (test Negative (11/28/2011 N code = UA Leuk Est) 19:00:00) [facility] DallasBzkhgfaCSJHDPCDE6299-89-39 00:00:00 Test Item Value Reference Range Interpretation Comments U Preg (test code = U Negative (11/28/2011 N Preg) 19:00:00) [facility] DallasSyvjrlfNWQRHBJOHB3082-49-89 00:00:00 Test Item Value Reference Range Interpretation Comments Micro? (test code = Performed (11/28/2011 N Micro?) 19:00:00) [facility] DallasAudjsizCUCGHICKHH7978-25-78 00:00:00 Test Item Value Reference Range Interpretation Comments UA Sq Epi (test code Occasional /LPF N = UA Sq Epi) (11/28/2011 19:00:00) [facility] DallasKjhrjguZUQCRAQRBA8817-27-96 00:00:00 Test Item Value Reference Range Interpretation Comments UA RBC (test None Seen See_Comment N [Automated mes pastor] code = UA RBC) (11/28/2011 The system ich 19:00:00) generated this result transmitted ref erence range: <=2. The reference range was not used to int erpret this result as normal/abnormal . [facility] ResourcesUxgcqrdUHELQJLUAO0917-61-37 00:00:00 Test Item Value Reference Range Interpretation Comments UA WBC (test code Occasional See_Comment [Automate d message] The = UA WBC) system which ge nerated this result tra nsmitted reference range : <=5. The reference range was not used to interpr et this result as normal/abnormal . [facility] ResourcesYrfiudvMPGEXYGRNL9193-20-55 00:00:00 Test Item Value Reference Range Interpretation Comments UA Protein (test code Negative mg/dL N = UA Protein) (11/28/2011 19:00:00) [facility] CenterAzkbbdkLPQXEZJETN3188-77-08 00:00:00 Test Item Value Reference Range Interpretation Comments UA pH (test code = UA pH) 7.0 1 5.0-8.0 N [facility] CenterZlpibltJEIFADMMPK5642-24-19 00:00:00 Test Item Value Reference Range Interpretation Comments UA Spec Grav (test code = UA Spec 1.020 1 N Grav) [facility] CenterVtepmzhLMHXJMVIRZ5585-24-90 00:00:00 Test Item Value Reference Range Interpretation Comments UA Turbidity (test code = Clear (11/28/2011 N UA Turbidity) 19:00:00) [facility] CenterKbfzgikIUIEKWHTOD3380-00-25 00:00:00 Test Item Value Reference Range Interpretation Comments UA Color (test code = Yellow *NA*(11/28/2011 UA Color) 19:00:00) [facility] ResourcesWaklrssJCNBILZGFJ0839-96-78 00:00:00 Test Item Value Reference Range Interpretation Comments UA Urobilinogen (test code = UA 0.2 0.1-1.0 N Urobilinogen) [facility] ResourcesXrrgsvvDWXCAAQESX7407-99-64 00:00:00 Test Item Value Reference Range Interpretation Comments UA Blood (test code = Negative (11/28/2011 N UA Blood) 19:00:00) [facility] ResourcesWnmpwwaOAWMFFMDHA9372-88-37 00:00:00 Test Item Value Reference Range Interpretation Comments UA Bili (test code = Negative *NA*(11/28/2011 UA Bili) 19:00:00) [facility] ResourcesZsrfeviZNRKDAGCNP2082-01-61 00:00:00 Test Item Value Reference Range Interpretation Comments UA Ketones (test code = >=80 mg/dL A UA Ketones) *ABN*(11/28/2011 19:00:00) [facility] DallasCjhzbceRODJQSXGFJ2460-83-33 00:00:00 Test Item Value Reference Range Interpretation Comments UA Glucose (test code = >=1000 mg/dL A UA Glucose) *ABN*(11/28/2011 19:00:00) [facility] DallasYpbsvktGEWJIOVJMN2672-90-42 00:00:00 Test Item Value Reference Range Interpretation Comments UA Nitrite (test code Negative (11/28/2011 N = UA Nitrite) 19:00:00) [facility] DallasFvxsworCTKSIMMOTP2110-15-94 00:00:00 Test Item Value Reference Range Interpretation Comments UA Leuk Est (test Negative (11/28/2011 N code = UA Leuk Est) 19:00:00) [facility] DallasMtmzoquERJRYZZWV1833-82-84 00:00:00 Test Item Value Reference Range Interpretation Comments U Preg (test code = U Negative (11/28/2011 N Preg) 19:00:00) [facility] ResourcesCilpjvcNXQMOAVJOF7816-09-36 00:00:00 Test Item Value Reference Range Interpretation Comments Micro? (test code = Performed (11/28/2011 N Micro?) 19:00:00) [facility] ResourcesAhvkyrqEFLHLFFWLA3618-08-95 00:00:00 Test Item Value Reference Range Interpretation Comments UA Sq Epi (test code Occasional /LPF N = UA Sq Epi) (11/28/2011 19:00:00) [facility] ResourcesNurqinwTSBZZRTSYQ5039-11-96 00:00:00 Test Item Value Reference Range Interpretation Comments UA RBC (test None Seen See_Comment N [Automated mes pastor] code = UA RBC) (11/28/2011 The system wh ich 19:00:00) generated this result transmitted ref erence range: <=2. The reference range was not used to int erpret this result as normal/abnormal . [facility] ResourcesSksqetrVLYCOIBVHG8109-04-65 00:00:00 Test Item Value Reference Range Interpretation Comments UA WBC (test code Occasional See_Comment [Automate d message] The = UA WBC) system which ge nerated this result tra nsmitted reference range : <=5. The reference range was not used to interpr et this result as normal/abnormal . [facility]JchpfxyDFVTRMRZOV3030-61-53 00:00:00 Test Item Value Reference Range Interpretation Comments UA Protein (test code Negative mg/dL N = UA Protein) (11/28/2011 19:00:00) [facility] HospitalMfyduzxJZIZOKTSEU7071-27-56 00:00:00 Test Item Value Reference Range Interpretation Comments UA pH (test code = UA pH) 7.0 1 5.0-8.0 N [facility] HospitalXhmykzbTWUMLFDJNQ6399-74-87 00:00:00 Test Item Value Reference Range Interpretation Comments UA Spec Grav (test code = UA Spec 1.020 1 N Grav) [facility] HospitalVmlwxbuHVEGZXPCRL0936-42-34 00:00:00 Test Item Value Reference Range Interpretation Comments UA Turbidity (test code = Clear (11/28/2011 N UA Turbidity) 19:00:00) [facility] HospitalZpymmmpHPWDPYEMME6065-89-56 00:00:00 Test Item Value Reference Range Interpretation Comments UA Color (test code = Yellow *NA*(11/28/2011 UA Color) 19:00:00) [facility] HospitalMaauozpLORBNDKNIN5024-14-89 00:00:00 Test Item Value Reference Range Interpretation Comments UA Urobilinogen (test code = UA 0.2 0.1-1.0 N Urobilinogen) [facility] HospitalLmqvcroGMXTIDAJBE3558-16-47 00:00:00 Test Item Value Reference Range Interpretation Comments UA Blood (test code = Negative (11/28/2011 N UA Blood) 19:00:00) [facility] HospitalFvthbzyNKMJWTQDCP6219-13-86 00:00:00 Test Item Value Reference Range Interpretation Comments UA Bili (test code = Negative *NA*(11/28/2011 UA Bili) 19:00:00) [facility] HospitalZzpvlirZQOVEYTSMZ1703-24-55 00:00:00 Test Item Value Reference Range Interpretation Comments UA Ketones (test code = >=80 mg/dL A UA Ketones) *ABN*(11/28/2011 19:00:00) [facility] HospitalJpjpvqdNSEEPNOEPI6390-00-27 00:00:00 Test Item Value Reference Range Interpretation Comments UA Glucose (test code = >=1000 mg/dL A UA Glucose) *ABN*(11/28/2011 19:00:00) [facility] HospitalAjijdcrHYAWOIMRPF1546-55-87 00:00:00 Test Item Value Reference Range Interpretation Comments UA Nitrite (test code Negative (11/28/2011 N = UA Nitrite) 19:00:00) [facility] DallasXiopsajNEULTLRQYG6474-74-48 00:00:00 Test Item Value Reference Range Interpretation Comments UA Leuk Est (test Negative (11/28/2011 N code = UA Leuk Est) 19:00:00) [facility] DallasQdfdzwlKKSBYQFPW3811-63-14 00:00:00 Test Item Value Reference Range Interpretation Comments U Preg (test code = U Negative (11/28/2011 N Preg) 19:00:00) [facility] DallasMxgayfpDVOUZMYOFD8652-89-64 00:00:00 Test Item Value Reference Range Interpretation Comments Micro? (test code = Performed (11/28/2011 N Micro?) 19:00:00) [facility] DallasYgvytfwRFYCWYFKUC5976-42-50 00:00:00 Test Item Value Reference Range Interpretation Comments UA Sq Epi (test code Occasional /LPF N = UA Sq Epi) (11/28/2011 19:00:00) [facility] ResourcesNphvpzxUEQYNYDRFH6057-29-46 00:00:00 Test Item Value Reference Range Interpretation Comments UA RBC (test None Seen See_Comment N [Automated mes pastor] code = UA RBC) (11/28/2011 The system [facility] 19:00:00) generated this result transmitted ref erence range: <=2. The reference range was not used to int erpret this result as normal/abnormal . [facility] DallasPbaivvkPHIHQLUJQQ1107-68-28 00:00:00 Test Item Value Reference Range Interpretation Comments UA WBC (test code Occasional See_Comment [Automate d message] The = UA WBC) system which ge nerated this result tra nsmitted reference range : <=5. The reference range was not used to interpr et this result as normal/abnormal . [facility] DallasQxovdghQHIXQFILKI9278-33-43 00:00:00 Test Item Value Reference Range Interpretation Comments UA Protein (test code Negative mg/dL N = UA Protein) (11/28/2011 19:00:00) [facility] DallasAqesczsYMVTWDSPHT6803-16-41 00:00:00 Test Item Value Reference Range Interpretation Comments UA pH (test code = UA pH) 7.0 1 5.0-8.0 N [facility] ResourcesRfxqhmyKRUCLRTNDL6767-83-42 00:00:00 Test Item Value Reference Range Interpretation Comments UA Spec Grav (test code = UA Spec 1.020 1 N Grav) [facility] CenterDocnxkbFDPJEYOHVM1649-45-37 00:00:00 Test Item Value Reference Range Interpretation Comments UA Turbidity (test code = Clear (11/28/2011 N UA Turbidity) 19:00:00) [facility] CenterEsirudzYGWDCKCLZQ6754-71-97 00:00:00 Test Item Value Reference Range Interpretation Comments UA Color (test code = Yellow *NA*(11/28/2011 UA Color) 19:00:00) [facility] CenterElfrbszBWXGMLHFRC5790-19-83 00:00:00 Test Item Value Reference Range Interpretation Comments UA Urobilinogen (test code = UA 0.2 0.1-1.0 N Urobilinogen) [facility] CenterMtxmuizKIRFRQPSSB6298-34-46 00:00:00 Test Item Value Reference Range Interpretation Comments UA Blood (test code = Negative (11/28/2011 N UA Blood) 19:00:00) [facility] CenterFxtomhdPLPEFLKJQA7251-39-05 00:00:00 Test Item Value Reference Range Interpretation Comments UA Bili (test code = Negative *NA*(11/28/2011 UA Bili) 19:00:00) [facility] CenterWiqizgkNDWAGUVFVD7894-19-28 00:00:00 Test Item Value Reference Range Interpretation Comments UA Ketones (test code = >=80 mg/dL A UA Ketones) *ABN*(11/28/2011 19:00:00) [facility] ResourcesDtpcviaHIXWTLMQSQ0498-42-42 00:00:00 Test Item Value Reference Range Interpretation Comments UA Glucose (test code = >=1000 mg/dL A UA Glucose) *ABN*(11/28/2011 19:00:00) [facility] ResourcesTpbysdvXOZAAWMGBR0966-57-62 00:00:00 Test Item Value Reference Range Interpretation Comments UA Nitrite (test code Negative (11/28/2011 N = UA Nitrite) 19:00:00) [facility] CenterAfkujinBHYTKYNMTT1699-87-22 00:00:00 Test Item Value Reference Range Interpretation Comments UA Leuk Est (test Negative (11/28/2011 N code = UA Leuk Est) 19:00:00) [facility] ResourcesEyztzldYNMUMGWOZ0538-72-25 20:41:00 Test Item Value Reference Range Interpretation Comments pO2 Roberth (test code = pO2 Roberth) 60 20-49 H [facility]XgjtpaaSISSRPTNL6509-34-98 20:41:00 Test Item Value Reference Range Interpretation Comments pCO2 Roberth (test code = pCO2 Roberth) 41 38-52 N [facility]WrfcrqyFCQPFPDDE8352-92-62 20:41:00 Test Item Value Reference Range Interpretation Comments pH Roberth (test code = pH Roberth) 7.45 7.28-7.42 H [facility]ervilleHwimichEDSLRYNFF7882-96-10 20:41:00 Test Item Value Reference Range Interpretation Comments Temp Roberth (test code = Temp Roberth) 37.0 [facility]ervilleHwwhlklWZVYWSOJJ0302-06-82 20:41:00 Test Item Value Reference Range Interpretation Comments O2 Sat Roberth (test code = O2 Sat Robreth) 92.0 40.0-70.0 H [facility]ervilleHjeusvtMQCDKKJAD7943-04-91 20:41:00 Test Item Value Reference Range Interpretation Comments BE Roberth (test code = 4 See_Comment H [Automa rohit message] The BE Roberth) system which ge nerated this result transmit rohit reference range : <=2. The reference range was not used to interpr et this result as reji l/abnormal. [facility]ervilleXqzzrqvEJYJQWQYZ0859-50-40 20:41:00 Test Item Value Reference Range Interpretation Comments HCO3 Roberth (test code = HCO3 Roberth) 28.5 22.0-26.0 H [facility]ervilleYqvejosFOYXDVSTV1005-27-32 20:41:00 Test Item Value Reference Range Interpretation Comments pO2 Roberth (test code = pO2 Roberth) 60 20-49 H [facility] [place]ervilleCiyciabYOWSZXYMP4504-51-14 20:41:00 Test Item Value Reference Range Interpretation Comments pCO2 Roberth (test code = pCO2 Roberth) 41 38-52 N [facility] [place]ervilleRrgmbprYXITVUHXL7324-85-96 20:41:00 Test Item Value Reference Range Interpretation Comments pH Roberth (test code = pH Roberth) 7.45 7.28-7.42 H [facility] [place]CvhodrcVXUKBPMHA2300-24-41 20:41:00 Test Item Value Reference Range Interpretation Comments Temp Roberth (test code = Temp Roberth) 37.0 [facility] [place]ervilleNtqkgpwHMYCNDFVO6529-88-94 20:41:00 Test Item Value Reference Range Interpretation Comments O2 Sat Roberth (test code = O2 Sat Roberth) 92.0 40.0-70.0 H [facility] DallasDmrkfilGLAUNKUXU4013-05-62 20:41:00 Test Item Value Reference Range Interpretation Comments BE Roberth (test code = 4 See_Comment H [Automa rohit message] The BE Roberth) system which ge nerated this result transmit rohit reference range : <=2. The reference range was not used to interpr et this result as reji l/abnormal. [facility] DallasKrnrijzCIQLXEZAI1992-59-10 20:41:00 Test Item Value Reference Range Interpretation Comments HCO3 Roberth (test code = HCO3 Roberth) 28.5 22.0-26.0 H [facility] DallasUnbbyvhRETVKEXYM6216-05-67 20:41:00 Test Item Value Reference Range Interpretation Comments pO2 Roberth (test code = pO2 Roberth) 60 20-49 H [facility] DallasKpimukbQKZXYLHOU8442-03-00 20:41:00 Test Item Value Reference Range Interpretation Comments pCO2 Roberth (test code = pCO2 Roberth) 41 38-52 N [facility] DallasHknxuscQZTYRMFMC4275-75-70 20:41:00 Test Item Value Reference Range Interpretation Comments pH Roberth (test code = pH Roberth) 7.45 7.28-7.42 H [facility] DallasEpkvkvfDVSXAFZKY7662-84-81 20:41:00 Test Item Value Reference Range Interpretation Comments Temp Roberth (test code = Temp Roberth) 37.0 [facility] DallasNgzxltcMFLIGKMOQ7483-04-63 20:41:00 Test Item Value Reference Range Interpretation Comments O2 Sat Roberth (test code = O2 Sat Roberth) 92.0 40.0-70.0 H [facility] DallasZyjrdliARLVRLZZU6484-22-38 20:41:00 Test Item Value Reference Range Interpretation Comments BE Roberth (test code = 4 See_Comment H [Automa rohit message] The BE Roberth) system which ge nerated this result transmit rohit reference range : <=2. The reference range was not used to interpr et this result as reji l/abnormal. [facility] DallasHoxdizhEBVCQGJEF3979-31-40 20:41:00 Test Item Value Reference Range Interpretation Comments HCO3 Roberth (test code = HCO3 Roberth) 28.5 22.0-26.0 H [facility] DallasWphjfcqKRHOSNIHF7884-17-84 20:41:00 Test Item Value Reference Range Interpretation Comments pO2 Roberth (test code = pO2 Roberth) 60 20-49 H [facility] ServicesPmzuyosQSGPRFHLS1507-60-48 20:41:00 Test Item Value Reference Range Interpretation Comments pCO2 Roberth (test code = pCO2 Roberth) 41 38-52 N [facility] [place]AyjpzguHAODKMWIO4357-46-69 20:41:00 Test Item Value Reference Range Interpretation Comments pH Roberth (test code = pH Roberth) 7.45 7.28-7.42 H [facility] [place]ervilleRvvflbvLDCHGPQWT2949-83-56 20:41:00 Test Item Value Reference Range Interpretation Comments Temp Robreth (test code = Temp Roberth) 37.0 [facility]ervilleBfwjmitAMFUPHBXC5304-50-95 20:41:00 Test Item Value Reference Range Interpretation Comments O2 Sat Roberth (test code = O2 Sat Roberth) 92.0 40.0-70.0 H [facility]ervilleHssfpdkRAIIJQMPJ3262-76-43 20:41:00 Test Item Value Reference Range Interpretation Comments BE Roberth (test code = 4 See_Comment H [Automa rohit message] The BE Roberth) system which ge nerated this result transmit rohit reference range : <=2. The reference range was not used to interpr et this result as reji l/abnormal. [facility]ervilleRukbowwEMEPINSBF7857-14-22 20:41:00 Test Item Value Reference Range Interpretation Comments HCO3 Roberth (test code = HCO3 Roberth) 28.5 22.0-26.0 H [facility] [place]ervilleFbphyzyNJTRIFDDF7192-95-81 20:41:00 Test Item Value Reference Range Interpretation Comments pO2 Roberth (test code = pO2 Roberth) 60 20-49 H [facility] [place]ervilleRnwmenaEDOZUYTZW3234-56-02 20:41:00 Test Item Value Reference Range Interpretation Comments pCO2 Roberth (test code = pCO2 Roberth) 41 38-52 N [facility] [place]ervilleAynjtfsSOWZNMUFO6928-46-78 20:41:00 Test Item Value Reference Range Interpretation Comments pH Roberth (test code = pH Roberth) 7.45 7.28-7.42 H [facility] [place]ervilleRbrhjemCRWRVVWPW4033-78-83 20:41:00 Test Item Value Reference Range Interpretation Comments Temp Roberth (test code = Temp Roberth) 37.0 [facility] [place]ervilleRapnupdBCCRREZMX3049-98-71 20:41:00 Test Item Value Reference Range Interpretation Comments O2 Sat Roberth (test code = O2 Sat Roberth) 92.0 40.0-70.0 H [facility]QgvxvjzRKUXWXJGT5647-67-26 20:41:00 Test Item Value Reference Range Interpretation Comments BE Roberth (test code = 4 See_Comment H [Automa rohit message] The BE Roberth) system which ge nerated this result transmit rohit reference range : <=2. The reference range was not used to interpr et this result as reji l/abnormal. [facility]ervilleToegthpUDMOVLNFH2785-52-04 20:41:00 Test Item Value Reference Range Interpretation Comments HCO3 Roberth (test code = HCO3 Roberth) 28.5 22.0-26.0 H [facility] [place]MpfkdbgAAIGOTGBG2749-76-97 20:00:00 Test Item Value Reference Range Interpretation Comments Lactic Acid Lvl (test code = Lactic 1.6 0.5-2.2 N Acid Lvl) [facility]ervilleKfgctoxMOVAMFZNR3362-92-20 20:00:00 Test Item Value Reference Range Interpretation Comments Lipase Lvl (test code = Lipase Lvl) 125 73-393 N [facility] [place]ervilleWdjklebQSHZJAJUC6542-78-36 20:00:00 Test Item Value Reference Range Interpretation Comments Albumin Lvl (test code = Albumin Lvl) 4.2 3.5-5.0 N [facility]ervilleCnsipxzTDQKUMYQN4569-85-76 20:00:00 Test Item Value Reference Range Interpretation Comments CO2 (test code = CO2) 23 24-32 L [facility] [place]ervilleDrdimbiTPGIXAWMF7507-59-91 20:00:00 Test Item Value Reference Range Interpretation Comments Chloride Lvl (test code = Chloride Lvl) 98 95-109 N [facility] [place]ervilleCtdovtlDGSFLQLOK1973-98-78 20:00:00 Test Item Value Reference Range Interpretation Comments Potassium Lvl (test code = Potassium 3.8 3.5-5.1 N Lvl) [facility] [place]ervilleTwlwgezTSFNSPELI0644-40-21 20:00:00 Test Item Value Reference Range Interpretation Comments Sodium Lvl (test code = Sodium Lvl) 138 135-145 N [facility] [place]ervilleTsivnzeFANSFPNEP9685-24-76 20:00:00 Test Item Value Reference Range Interpretation Comments Creatinine Lvl (test code = Creatinine 0.7 0.5-1.4 N Lvl) [facility] [place]ervilleMleksheBOWEGZIVC0697-49-76 20:00:00 Test Item Value Reference Range Interpretation Comments BUN (test code = BUN) 9 7-22 N [facility] [place]ervilleMwvbndjSXKMMUNKD4293-17-17 20:00:00 Test Item Value Reference Range Interpretation Comments Glucose Lvl (test code = Glucose Lvl) 269 70-99 H [facility] [place]ervilleVvyyvgxPALRQHIZI4521-86-45 20:00:00 Test Item Value Reference Range Interpretation Comments B/C Ratio (test code = B/C Ratio) 13 6-25 N [facility] [place]ervilleQyxajsdNXTGVBOQX9389-68-45 20:00:00 Test Item Value Reference Range Interpretation Comments AGAP (test code = AGAP) 20.8 10.0-20.0 H [facility] [place]ervilleYoghbmnIXSLPGXPS8141-39-17 20:00:00 Test Item Value Reference Range Interpretation Comments Calcium Lvl (test code = Calcium Lvl) 9.3 8.5-10.5 N [facility] [place]ervilleUlgelweZBEEIZUFB2042-33-32 20:00:00 Test Item Value Reference Range Interpretation Comments Total Protein (test code = Total 6.7 6.4-8.4 N Protein) [facility]ervilleGyqvtloLFNQUJTET7559-26-17 20:00:00 Test Item Value Reference Range Interpretation Comments A/G Ratio (test code = A/G Ratio) 1.7 0.7-1.6 H [facility] [place]ervilleKpdralaYLLIRQJLC6693-52-01 20:00:00 Test Item Value Reference Range Interpretation Comments Globulin (test code = Globulin) 2.5 2.0-4.0 N [facility] [place]ervilleMsxoxuaVBBIMKIGV8464-43-81 20:00:00 Test Item Value Reference Range Interpretation Comments AST (test code = AST) 18 See_Comment N [Auto mated message] The system which ge nerated this result transmit rohit reference range : <=37. The reference range was not used to interpr et this result as reji l/abnormal. [facility]ervilleQjmxqboYWUANEDTO5982-43-09 20:00:00 Test Item Value Reference Range Interpretation Comments Alk Phos (test code = Alk Phos) 62 39-136 N [facility] [place]ervilleFrvuimbHMTWWLOOG0607-28-08 20:00:00 Test Item Value Reference Range Interpretation Comments ALT (test code = ALT) 32 See_Comment N [Auto mated message] The system which ge nerated this result transmit rohit reference range : <=65. The reference range was not used to interpr et this result as reji l/abnormal. [facility]ervilleWejcmzpHLRVUOYYL4579-33-79 20:00:00 Test Item Value Reference Range Interpretation Comments Bili Total (test code = Bili Total) 0.7 0.2-1.3 N [facility]CbujgvmUGRKJMEGGQ3373-88-84 20:00:00 Test Item Value Reference Range Interpretation Comments Anisocyte (test code = 1+ *ABN*(11/28/2011 A Anisocyte) 15:00:00) [facility] HospitalSehsfecYLEAYGMUIL7739-55-60 20:00:00 Test Item Value Reference Range Interpretation Comments Monocytes # (test code 0.1 See_Comment N [Aut omated message] The = Monocytes #) system which generated this result tra nsmitted reference range : <=0.8. The reference r leo was not used to int erpret this result as normal/abnormal . [facility] HospitalXfhdtolUBTBGNBKLI5054-36-01 20:00:00 Test Item Value Reference Range Interpretation Comments Eosinophils # (test code 0.0 See_Comment N [A utomated message] The = Eosinophils #) system whic h generated this result tra nsmitted reference range : <=0.5. The reference r leo was not used to int erpret this result as normal/abnormal . [facility] HospitalTcawfmyMNHYUTQRNS7444-54-98 20:00:00 Test Item Value Reference Range Interpretation Comments Basophils # (test code 0.0 See_Comment N [Aut omated message] The = Basophils #) system which generated this result tra nsmitted reference range : <=0.2. The reference r leo was not used to int erpret this result as normal/abnormal . [facility] HospitalKdlgglsOYWUENBLWF6919-61-32 20:00:00 Test Item Value Reference Range Interpretation Comments Neut Vac (test code = Slight *ABN*(11/28/2011 A Neut Vac) 15:00:00) [facility] HospitalWzccvgdXTRQJLYTYH0097-52-35 20:00:00 Test Item Value Reference Range Interpretation Comments Large Plt (test code = Slight *ABN*(11/28/2011 A Large Plt) 15:00:00) [facility] HospitalLxlrbwlMWPOAJWSEW2160-78-96 20:00:00 Test Item Value Reference Range Interpretation Comments Segs-Bands # (test code = Segs-Bands #) 5.7 1.5-8.1 N [facility] HospitalYjkdjvfAYOJTQQXNS5248-53-58 20:00:00 Test Item Value Reference Range Interpretation Comments Lymphocytes # (test code = Lymphocytes 0.8 1.0-5.5 L #) [facility] HospitalBwjztzhDPAEXOAXYP3504-81-81 20:00:00 Test Item Value Reference Range Interpretation Comments Eosinophils (test code = 0.2 See_Comment N [A utomated message] The Eosinophils) system which ge nerated this result tra nsmitted reference range : <=4.0. The reference r leo was not used to int erpret this result as normal/abnormal . [facility] HospitalWfzskooTPGCZOIFBW2384-80-72 20:00:00 Test Item Value Reference Range Interpretation Comments Basophils (test code = 0.0 See_Comment N [Aut omated message] The Basophils) system which ge nerated this result tra nsmitted reference range : <=1.0. The reference r leo was not used to int erpret this result as normal/abnormal . [facility] HospitalAzvyxsnSFDEXLBTRV7015-29-59 20:00:00 Test Item Value Reference Range Interpretation Comments Monocytes (test code = Monocytes) 1.9 2.0-12.0 L [facility] HospitalDkpklhgZQMWKJSUCE7222-28-33 20:00:00 Test Item Value Reference Range Interpretation Comments Segs (test code = Segs) 86.2 45.0-75.0 H [facility] HospitalIoqixktHESJLSQIVX0255-13-58 20:00:00 Test Item Value Reference Range Interpretation Comments Lymphocytes (test code = Lymphocytes) 11.7 20.0-40.0 L [facility] HospitalCfqljdcLHVMBCOALK7134-92-26 20:00:00 Test Item Value Reference Range Interpretation Comments MPV (test code = MPV) 10.8 7.4-10.4 H [facility] HospitalZhtklmeEEJUCDNCBA4871-90-29 20:00:00 Test Item Value Reference Range Interpretation Comments Platelet (test code = Platelet) 161 133-450 N [facility] HospitalTyvekimZWAVDTMWWT8820-50-01 20:00:00 Test Item Value Reference Range Interpretation Comments MCHC (test code = MCHC) 35.6 32.0-36.0 N [facility] HospitalQvftsttRZYUAMRNBS3607-21-53 20:00:00 Test Item Value Reference Range Interpretation Comments RDW (test code = RDW) 12.4 11.5-14.5 N [facility] HospitalWtwyhtqBDPPZIEWDU2491-54-26 20:00:00 Test Item Value Reference Range Interpretation Comments MCH (test code = MCH) 30.7 pg 27.0-31.0 N [facility] HospitalZchnqyqVVFIXNEIQP6951-09-36 20:00:00 Test Item Value Reference Range Interpretation Comments MCV (test code = MCV) 86.1 81.0-99.0 N [facility] HospitalJphaupnURROGEZNHF5030-78-95 20:00:00 Test Item Value Reference Range Interpretation Comments Hct (test code = Hct) 33.6 36.0-48.0 L [facility] HospitalIlfalqzHMNSSAUQHC6695-91-49 20:00:00 Test Item Value Reference Range Interpretation Comments Hgb (test code = Hgb) 12.0 12.0-16.0 N [facility] HospitalQmtjuuyCXOTGCTUUM1312-46-12 20:00:00 Test Item Value Reference Range Interpretation Comments RBC (test code = RBC) 3.90 4.20-5.40 L [facility] HospitalOrntcwhBIRCZURYUU9255-47-73 20:00:00 Test Item Value Reference Range Interpretation Comments WBC (test code = WBC) 6.6 3.7-10.4 N [facility]ervilleBlmxoeoDRVLAOGKN2927-80-54 20:00:00 Test Item Value Reference Range Interpretation Comments Lactic Acid Lvl (test code = Lactic 1.6 0.5-2.2 N Acid Lvl) [facility]ervilleBizzhnuCCPAYYSEV4373-82-97 20:00:00 Test Item Value Reference Range Interpretation Comments Lipase Lvl (test code = Lipase Lvl) 125 73-393 N [facility] [place]ervilleMmcpihxLHWVSKNII4560-55-71 20:00:00 Test Item Value Reference Range Interpretation Comments Albumin Lvl (test code = Albumin Lvl) 4.2 3.5-5.0 N [facility]ervillePnfhbfbUPMFWINJO1371-59-20 20:00:00 Test Item Value Reference Range Interpretation Comments CO2 (test code = CO2) 23 24-32 L [facility] [place]ervilleNcobdwuRWURMQXSC1564-91-92 20:00:00 Test Item Value Reference Range Interpretation Comments Chloride Lvl (test code = Chloride Lvl) 98 95-109 N [facility] [place]ervilleTmyyrqdTJXTIVYIT3067-87-67 20:00:00 Test Item Value Reference Range Interpretation Comments Potassium Lvl (test code = Potassium 3.8 3.5-5.1 N Lvl) [facility] [place]ervilleYebqdvyCKAJSOTDP3627-70-35 20:00:00 Test Item Value Reference Range Interpretation Comments Sodium Lvl (test code = Sodium Lvl) 138 135-145 N [facility] [place]ervilleVopzelcQYJVVTYJH7420-03-98 20:00:00 Test Item Value Reference Range Interpretation Comments Creatinine Lvl (test code = Creatinine 0.7 0.5-1.4 N Lvl) [facility] [place]ervilleDhrzwcwKNLTBWFQS8298-52-23 20:00:00 Test Item Value Reference Range Interpretation Comments BUN (test code = BUN) 9 7-22 N [facility] [place]ervilleZggcublXSXXWXVYT9865-52-99 20:00:00 Test Item Value Reference Range Interpretation Comments Glucose Lvl (test code = Glucose Lvl) 269 70-99 H [facility] [place]ervilleAsjuoriNMFXSHGVM7162-37-76 20:00:00 Test Item Value Reference Range Interpretation Comments B/C Ratio (test code = B/C Ratio) 13 6-25 N [facility] [place]ervilleDqnhredKWEFDYIUA5994-59-58 20:00:00 Test Item Value Reference Range Interpretation Comments AGAP (test code = AGAP) 20.8 10.0-20.0 H [facility] [place]ervilleMlmeinaFZNJZGRWJ2934-59-28 20:00:00 Test Item Value Reference Range Interpretation Comments Calcium Lvl (test code = Calcium Lvl) 9.3 8.5-10.5 N [facility] [place]ervilleOzprkgfGXJCTDRQI9675-30-23 20:00:00 Test Item Value Reference Range Interpretation Comments Total Protein (test code = Total 6.7 6.4-8.4 N Protein) [facility] [place]ervilleEydwqfrCOGHAPVTS4515-46-08 20:00:00 Test Item Value Reference Range Interpretation Comments A/G Ratio (test code = A/G Ratio) 1.7 0.7-1.6 H [facility]ervilleBrqyrrkKYGQTQURJ7117-71-15 20:00:00 Test Item Value Reference Range Interpretation Comments Globulin (test code = Globulin) 2.5 2.0-4.0 N [facility] [place]ervilleVguaeddNDNFAYCUT7956-40-24 20:00:00 Test Item Value Reference Range Interpretation Comments AST (test code = AST) 18 See_Comment N [Auto mated message] The system which ge nerated this result transmit rohit reference range : <=37. The reference range was not used to interpr et this result as reji l/abnormal. [facility]PaseyueDZJTLBNSA4529-85-48 20:00:00 Test Item Value Reference Range Interpretation Comments Alk Phos (test code = Alk Phos) 62 39-136 N [facility] [place]ervilleFckpdwnGOATJCGRX3105-72-70 20:00:00 Test Item Value Reference Range Interpretation Comments ALT (test code = ALT) 32 See_Comment N [Auto mated message] The system which ge nerated this result transmit rohit reference range : <=65. The reference range was not used to interpr et this result as reji l/abnormal. [facility]ervilleGecwirvBWKTVVXCY4344-53-32 20:00:00 Test Item Value Reference Range Interpretation Comments Bili Total (test code = Bili Total) 0.7 0.2-1.3 N [facility] HospitalTewazmxQXASEFUOJC4464-43-13 20:00:00 Test Item Value Reference Range Interpretation Comments Anisocyte (test code = 1+ *ABN*(11/28/2011 A Anisocyte) 15:00:00) [facility] HospitalUejvrllYYBVORUAUE6219-61-60 20:00:00 Test Item Value Reference Range Interpretation Comments Monocytes # (test code 0.1 See_Comment N [Aut omated message] The = Monocytes #) system which generated this result tra nsmitted reference range : <=0.8. The reference r leo was not used to int erpret this result as normal/abnormal . [facility] HospitalAfhjsxcDEBSXYRJAH7785-29-90 20:00:00 Test Item Value Reference Range Interpretation Comments Eosinophils # (test code 0.0 See_Comment N [A utomated message] The = Eosinophils #) system whic h generated this result tra nsmitted reference range : <=0.5. The reference r leo was not used to int erpret this result as normal/abnormal . [facility] HospitalCkuhtrwGFRYWQKKFK1904-39-95 20:00:00 Test Item Value Reference Range Interpretation Comments Basophils # (test code 0.0 See_Comment N [Aut omated message] The = Basophils #) system which generated this result tra nsmitted reference range : <=0.2. The reference r leo was not used to int erpret this result as normal/abnormal . [facility] HospitalFkvyoziIOGXCTTPZL5715-40-31 20:00:00 Test Item Value Reference Range Interpretation Comments Neut Vac (test code = Slight *ABN*(11/28/2011 A Neut Vac) 15:00:00) [facility] HospitalMgmfpaaGMZPEWJBKH8015-08-53 20:00:00 Test Item Value Reference Range Interpretation Comments Large Plt (test code = Slight *ABN*(11/28/2011 A Large Plt) 15:00:00) [facility] HospitalWxzqbpeUUNCTOVFFH4791-16-01 20:00:00 Test Item Value Reference Range Interpretation Comments Segs-Bands # (test code = Segs-Bands #) 5.7 1.5-8.1 N [facility] HospitalHmfbezdZQPZKAMWQF0764-67-15 20:00:00 Test Item Value Reference Range Interpretation Comments Lymphocytes # (test code = Lymphocytes 0.8 1.0-5.5 L #) [facility] HospitalIntfwgdXYBJQBPOEV3804-98-65 20:00:00 Test Item Value Reference Range Interpretation Comments Eosinophils (test code = 0.2 See_Comment N [A utomated message] The Eosinophils) system which ge nerated this result tra nsmitted reference range : <=4.0. The reference r leo was not used to int erpret this result as normal/abnormal . [facility] HospitalKojobuuVEIBAKTAWA8245-36-20 20:00:00 Test Item Value Reference Range Interpretation Comments Basophils (test code = 0.0 See_Comment N [Aut omated message] The Basophils) system which ge nerated this result tra nsmitted reference range : <=1.0. The reference r leo was not used to int erpret this result as normal/abnormal . [facility] HospitalNuwgievAVOOHHZATZ0723-49-30 20:00:00 Test Item Value Reference Range Interpretation Comments Monocytes (test code = Monocytes) 1.9 2.0-12.0 L [facility] HospitalChatdsqSXGBTINEZT0086-23-12 20:00:00 Test Item Value Reference Range Interpretation Comments Segs (test code = Segs) 86.2 45.0-75.0 H [facility] HospitalXkawcbgFYESCUWTTK6634-18-23 20:00:00 Test Item Value Reference Range Interpretation Comments Lymphocytes (test code = Lymphocytes) 11.7 20.0-40.0 L [facility] HospitalKzezmotJJITFFVACN4923-03-44 20:00:00 Test Item Value Reference Range Interpretation Comments MPV (test code = MPV) 10.8 7.4-10.4 H [facility] HospitalWgvlfgfFRRMMACTVR6605-95-97 20:00:00 Test Item Value Reference Range Interpretation Comments Platelet (test code = Platelet) 161 133-450 N [facility] HospitalHewkkyaVMEGGGKYJN9333-92-39 20:00:00 Test Item Value Reference Range Interpretation Comments MCHC (test code = MCHC) 35.6 32.0-36.0 N [facility] HospitalDdiujlgIJKBDNAEDX8052-72-21 20:00:00 Test Item Value Reference Range Interpretation Comments RDW (test code = RDW) 12.4 11.5-14.5 N [facility] HospitalKxtrebiDIUHHTGAOB6481-08-79 20:00:00 Test Item Value Reference Range Interpretation Comments MCH (test code = MCH) 30.7 pg 27.0-31.0 N [facility] HospitalEwuuacpUJPQZAOKLV3040-39-54 20:00:00 Test Item Value Reference Range Interpretation Comments MCV (test code = MCV) 86.1 81.0-99.0 N [facility] HospitalOlwnlrgNCJGDPGWWP0257-61-15 20:00:00 Test Item Value Reference Range Interpretation Comments Hct (test code = Hct) 33.6 36.0-48.0 L [facility] HospitalWyrqismWDLKMKXYAD3755-88-18 20:00:00 Test Item Value Reference Range Interpretation Comments Hgb (test code = Hgb) 12.0 12.0-16.0 N [facility] HospitalGpqptckIXQKFRKRZO3886-55-24 20:00:00 Test Item Value Reference Range Interpretation Comments RBC (test code = RBC) 3.90 4.20-5.40 L [facility] HospitalDasicmxXTUZGRUJYJ7476-28-10 20:00:00 Test Item Value Reference Range Interpretation Comments WBC (test code = WBC) 6.6 3.7-10.4 N [facility]PddssqoWFCNFOWLU6021-77-64 20:00:00 Test Item Value Reference Range Interpretation Comments Lactic Acid Lvl (test code = Lactic 1.6 0.5-2.2 N Acid Lvl) [facility]ervilleEvuvigePNJVIOJRC5583-05-26 20:00:00 Test Item Value Reference Range Interpretation Comments Lipase Lvl (test code = Lipase Lvl) 125 73-393 N [facility] [place]ervilleHgfadglEOERGTSLH3342-79-80 20:00:00 Test Item Value Reference Range Interpretation Comments Albumin Lvl (test code = Albumin Lvl) 4.2 3.5-5.0 N [facility]EluifbpNMGUIUTAM8098-92-46 20:00:00 Test Item Value Reference Range Interpretation Comments CO2 (test code = CO2) 23 24-32 L [facility]ervilleApmvlkdWIAKYJOSY7080-19-31 20:00:00 Test Item Value Reference Range Interpretation Comments Chloride Lvl (test code = Chloride Lvl) 98 95-109 N [facility] [place]ervilleLprejtpRKJYRPLNS9971-75-16 20:00:00 Test Item Value Reference Range Interpretation Comments Potassium Lvl (test code = Potassium 3.8 3.5-5.1 N Lvl) [facility]ervilleFxttsxmUCDCUJFCR6909-82-12 20:00:00 Test Item Value Reference Range Interpretation Comments Sodium Lvl (test code = Sodium Lvl) 138 135-145 N [facility] [place]ervilleMaopzykUJAXXHUJJ9377-39-28 20:00:00 Test Item Value Reference Range Interpretation Comments Creatinine Lvl (test code = Creatinine 0.7 0.5-1.4 N Lvl) [facility]ervilleHetribrNITQQTNMP2301-64-27 20:00:00 Test Item Value Reference Range Interpretation Comments BUN (test code = BUN) 9 7-22 N [facility] [place]ervilleXoongxkAQULVEVBI3856-29-82 20:00:00 Test Item Value Reference Range Interpretation Comments Glucose Lvl (test code = Glucose Lvl) 269 70-99 H [facility] [place]ervilleXspopkiZFDKSKDNR7369-27-50 20:00:00 Test Item Value Reference Range Interpretation Comments B/C Ratio (test code = B/C Ratio) 13 6-25 N [facility]ervilleChjowrrHACNFLODW0962-95-06 20:00:00 Test Item Value Reference Range Interpretation Comments AGAP (test code = AGAP) 20.8 10.0-20.0 H [facility] [place]ervilleZjcsiswIJTMRYYFY4457-10-57 20:00:00 Test Item Value Reference Range Interpretation Comments Calcium Lvl (test code = Calcium Lvl) 9.3 8.5-10.5 N [facility] [place]ervilleAzotauuETYDOBRCZ8841-62-53 20:00:00 Test Item Value Reference Range Interpretation Comments Total Protein (test code = Total 6.7 6.4-8.4 N Protein) [facility]ervilleBrzfvsqNCTSZZDWX4675-08-21 20:00:00 Test Item Value Reference Range Interpretation Comments A/G Ratio (test code = A/G Ratio) 1.7 0.7-1.6 H [facility]ervilleOpzuoxsCLGQKMBYK3551-85-71 20:00:00 Test Item Value Reference Range Interpretation Comments Globulin (test code = Globulin) 2.5 2.0-4.0 N [facility]ervilleKegimnwXXTIDKCMG9893-62-88 20:00:00 Test Item Value Reference Range Interpretation Comments AST (test code = AST) 18 See_Comment N [Auto mated message] The system which ge nerated this result transmit rohit reference range : <=37. The reference range was not used to interpr et this result as reji l/abnormal. [facility]ervilleDvmjhbcQRGQGLAFD1757-60-12 20:00:00 Test Item Value Reference Range Interpretation Comments Alk Phos (test code = Alk Phos) 62 39-136 N [facility]ervilleDfcqsiiMUBTBSPRB0343-29-65 20:00:00 Test Item Value Reference Range Interpretation Comments ALT (test code = ALT) 32 See_Comment N [Auto mated message] The system which ge nerated this result transmit rohit reference range : <=65. The reference range was not used to interpr et this result as reji l/abnormal. [facility]ervilleCocdyywVKTVWQBHK9287-99-54 20:00:00 Test Item Value Reference Range Interpretation Comments Bili Total (test code = Bili Total) 0.7 0.2-1.3 N [facility] HospitalStqwlvdHOAKVYZCGN0236-60-77 20:00:00 Test Item Value Reference Range Interpretation Comments Anisocyte (test code = 1+ *ABN*(11/28/2011 A Anisocyte) 15:00:00) [facility] HospitalDmutprtAKTVTUIVHJ4112-73-38 20:00:00 Test Item Value Reference Range Interpretation Comments Monocytes # (test code 0.1 See_Comment N [Aut omated message] The = Monocytes #) system which generated this result tra nsmitted reference range : <=0.8. The reference r leo was not used to int erpret this result as normal/abnormal . [facility] HospitalOjkiutuOPKWMSCDJS2555-36-43 20:00:00 Test Item Value Reference Range Interpretation Comments Eosinophils # (test code 0.0 See_Comment N [A utomated message] The = Eosinophils #) system whic h generated this result tra nsmitted reference range : <=0.5. The reference r leo was not used to int erpret this result as normal/abnormal . [facility] HospitalSetbnkmFHFCNTOMGJ9611-63-48 20:00:00 Test Item Value Reference Range Interpretation Comments Basophils # (test code 0.0 See_Comment N [Aut omated message] The = Basophils #) system which generated this result tra nsmitted reference range : <=0.2. The reference r leo was not used to int erpret this result as normal/abnormal . [facility] HospitalDlhkicaKAOGXAIZPA9686-05-46 20:00:00 Test Item Value Reference Range Interpretation Comments Neut Vac (test code = Slight *ABN*(11/28/2011 A Neut Vac) 15:00:00) [facility] HospitalXuwzpptOSDNDQNHJN8971-62-93 20:00:00 Test Item Value Reference Range Interpretation Comments Large Plt (test code = Slight *ABN*(11/28/2011 A Large Plt) 15:00:00) [facility] HospitalYxjnocsPJYXTIKVNV3702-77-48 20:00:00 Test Item Value Reference Range Interpretation Comments Segs-Bands # (test code = Segs-Bands #) 5.7 1.5-8.1 N [facility] HospitalZzqudqvBXGAOOHBEQ9566-51-37 20:00:00 Test Item Value Reference Range Interpretation Comments Lymphocytes # (test code = Lymphocytes 0.8 1.0-5.5 L #) [facility] HospitalEtddjkoGACQTAGONH9051-28-87 20:00:00 Test Item Value Reference Range Interpretation Comments Eosinophils (test code = 0.2 See_Comment N [A utomated message] The Eosinophils) system which ge nerated this result tra nsmitted reference range : <=4.0. The reference r leo was not used to int erpret this result as normal/abnormal . [facility] HospitalPujacanZFLSRLMFLI3342-72-72 20:00:00 Test Item Value Reference Range Interpretation Comments Basophils (test code = 0.0 See_Comment N [Aut omated message] The Basophils) system which ge nerated this result tra nsmitted reference range : <=1.0. The reference r leo was not used to int erpret this result as normal/abnormal . [facility] HospitalMucdypjXXWDCTCDHE4664-00-29 20:00:00 Test Item Value Reference Range Interpretation Comments Monocytes (test code = Monocytes) 1.9 2.0-12.0 L [facility] HospitalUgnvpumFHJTLRMFMS0738-54-04 20:00:00 Test Item Value Reference Range Interpretation Comments Segs (test code = Segs) 86.2 45.0-75.0 H [facility] HospitalBbmybllBJUQYLYEZB6875-91-08 20:00:00 Test Item Value Reference Range Interpretation Comments Lymphocytes (test code = Lymphocytes) 11.7 20.0-40.0 L [facility] HospitalXzldtuqARXFPWCLVQ3032-23-54 20:00:00 Test Item Value Reference Range Interpretation Comments MPV (test code = MPV) 10.8 7.4-10.4 H [facility] HospitalUwggxenNMNBQRBSHH2318-25-14 20:00:00 Test Item Value Reference Range Interpretation Comments Platelet (test code = Platelet) 161 133-450 N [facility] HospitalTsdtjhaWQBAHTKPNO3534-17-00 20:00:00 Test Item Value Reference Range Interpretation Comments MCHC (test code = MCHC) 35.6 32.0-36.0 N [facility] HospitalJgllezeXZCKOHCJUH3585-95-58 20:00:00 Test Item Value Reference Range Interpretation Comments RDW (test code = RDW) 12.4 11.5-14.5 N [facility] HospitalGeztcumLFQWMWCRGC1764-59-38 20:00:00 Test Item Value Reference Range Interpretation Comments MCH (test code = MCH) 30.7 pg 27.0-31.0 N [facility] HospitalTygokzrNYASGBCQRA5350-87-08 20:00:00 Test Item Value Reference Range Interpretation Comments MCV (test code = MCV) 86.1 81.0-99.0 N [facility] HospitalQizackiPIKZLTVPEP7196-22-31 20:00:00 Test Item Value Reference Range Interpretation Comments Hct (test code = Hct) 33.6 36.0-48.0 L [facility] HospitalOmteylzNMKEYQRZIA1754-23-96 20:00:00 Test Item Value Reference Range Interpretation Comments Hgb (test code = Hgb) 12.0 12.0-16.0 N [facility] HospitalTggnvzcASUGFQXETE7656-13-78 20:00:00 Test Item Value Reference Range Interpretation Comments RBC (test code = RBC) 3.90 4.20-5.40 L [facility] HospitalOlqoozpCSIQPXQVWZ3243-53-13 20:00:00 Test Item Value Reference Range Interpretation Comments WBC (test code = WBC) 6.6 3.7-10.4 N [facility]KztfuawDLMOYTWEU6904-13-52 20:00:00 Test Item Value Reference Range Interpretation Comments Lactic Acid Lvl (test code = Lactic 1.6 0.5-2.2 N Acid Lvl) [facility]ervilleSblhsvjSZHJPZRSC6476-33-42 20:00:00 Test Item Value Reference Range Interpretation Comments Lipase Lvl (test code = Lipase Lvl) 125 73-393 N [facility]ervilleRsmiudmYVEXVGHOF4947-69-30 20:00:00 Test Item Value Reference Range Interpretation Comments Albumin Lvl (test code = Albumin Lvl) 4.2 3.5-5.0 N [facility]ervilleSmbsgeuXVTDDZWNP8775-14-47 20:00:00 Test Item Value Reference Range Interpretation Comments CO2 (test code = CO2) 23 24-32 L [facility]ervilleIrrwfioVYNHUBAZV2835-23-84 20:00:00 Test Item Value Reference Range Interpretation Comments Chloride Lvl (test code = Chloride Lvl) 98 95-109 N [facility]ervilleWjjahdpPHDYBKZQJ1021-78-12 20:00:00 Test Item Value Reference Range Interpretation Comments Potassium Lvl (test code = Potassium 3.8 3.5-5.1 N Lvl) [facility]YwwcbtlCUYUBINGE6948-42-62 20:00:00 Test Item Value Reference Range Interpretation Comments Sodium Lvl (test code = Sodium Lvl) 138 135-145 N [facility]ervilleQpxokdzDZQMIRORS9743-28-31 20:00:00 Test Item Value Reference Range Interpretation Comments Creatinine Lvl (test code = Creatinine 0.7 0.5-1.4 N Lvl) [facility]EacvlzdQXOBGICLI5738-20-50 20:00:00 Test Item Value Reference Range Interpretation Comments BUN (test code = BUN) 9 7-22 N [facility] [place]XpajmdnZKHEHYTSC1183-42-91 20:00:00 Test Item Value Reference Range Interpretation Comments Glucose Lvl (test code = Glucose Lvl) 269 70-99 H [facility]QjrrvmtYXDTUQWBE0593-78-21 20:00:00 Test Item Value Reference Range Interpretation Comments B/C Ratio (test code = B/C Ratio) 13 6-25 N [facility]KqylheaRCIZNHEKS2962-06-17 20:00:00 Test Item Value Reference Range Interpretation Comments AGAP (test code = AGAP) 20.8 10.0-20.0 H [facility]ervilleShcyzvvRFGZYTVGT1880-55-85 20:00:00 Test Item Value Reference Range Interpretation Comments Calcium Lvl (test code = Calcium Lvl) 9.3 8.5-10.5 N [facility]YivkatrIURTGBAZY4711-62-79 20:00:00 Test Item Value Reference Range Interpretation Comments Total Protein (test code = Total 6.7 6.4-8.4 N Protein) [facility]ervilleKfwpagtVKFOMPNIE8084-94-06 20:00:00 Test Item Value Reference Range Interpretation Comments A/G Ratio (test code = A/G Ratio) 1.7 0.7-1.6 H [facility]QhdbhitSBZFYZCQS3238-36-71 20:00:00 Test Item Value Reference Range Interpretation Comments Globulin (test code = Globulin) 2.5 2.0-4.0 N [facility]FqrgvnnSZBMOUQNV2695-02-17 20:00:00 Test Item Value Reference Range Interpretation Comments AST (test code = AST) 18 See_Comment N [Auto mated message] The system which ge nerated this result transmit rohit reference range : <=37. The reference range was not used to interpr et this result as reji l/abnormal. [facility]ervilleVexakyoYOAFXKSRJ9867-20-42 20:00:00 Test Item Value Reference Range Interpretation Comments Alk Phos (test code = Alk Phos) 62 39-136 N [facility]ervilleGejrzbjOCUBMGPRR1097-72-60 20:00:00 Test Item Value Reference Range Interpretation Comments ALT (test code = ALT) 32 See_Comment N [Auto mated message] The system which ge nerated this result transmit rohit reference range : <=65. The reference range was not used to interpr et this result as reji l/abnormal. [facility]SxvfqdpFLRFRXQFN5621-31-98 20:00:00 Test Item Value Reference Range Interpretation Comments Bili Total (test code = Bili Total) 0.7 0.2-1.3 N [facility] HospitalFobzqvbUXSZFFNZGY0517-19-87 20:00:00 Test Item Value Reference Range Interpretation Comments Anisocyte (test code = 1+ *ABN*(11/28/2011 A Anisocyte) 15:00:00) [facility] HospitalChlyipaPGYYAYGQSU5331-79-37 20:00:00 Test Item Value Reference Range Interpretation Comments Monocytes # (test code 0.1 See_Comment N [Aut omated message] The = Monocytes #) system which generated this result tra nsmitted reference range : <=0.8. The reference r leo was not used to int erpret this result as normal/abnormal . [facility] HospitalCudzpmqLBIWGFTWKZ8891-63-58 20:00:00 Test Item Value Reference Range Interpretation Comments Eosinophils # (test code 0.0 See_Comment N [A utomated message] The = Eosinophils #) system whic h generated this result tra nsmitted reference range : <=0.5. The reference r leo was not used to int erpret this result as normal/abnormal . [facility] HospitalAxaqcydVFUVIUHDJN4729-17-05 20:00:00 Test Item Value Reference Range Interpretation Comments Basophils # (test code 0.0 See_Comment N [Aut omated message] The = Basophils #) system which generated this result tra nsmitted reference range : <=0.2. The reference r leo was not used to int erpret this result as normal/abnormal . [facility] HospitalDxmmwxoXDWXLSOQIX5032-87-43 20:00:00 Test Item Value Reference Range Interpretation Comments Neut Vac (test code = Slight *ABN*(11/28/2011 A Neut Vac) 15:00:00) [facility] HospitalZdcmvzyBRTQPJQKTH2229-26-15 20:00:00 Test Item Value Reference Range Interpretation Comments Large Plt (test code = Slight *ABN*(11/28/2011 A Large Plt) 15:00:00) [facility] HospitalPrbhthuQLOPVLRFCJ0177-23-66 20:00:00 Test Item Value Reference Range Interpretation Comments Segs-Bands # (test code = Segs-Bands #) 5.7 1.5-8.1 N [facility] HospitalHtdkbtlCAZBEZSJSP0595-27-98 20:00:00 Test Item Value Reference Range Interpretation Comments Lymphocytes # (test code = Lymphocytes 0.8 1.0-5.5 L #) [facility] HospitalKzxaciiCEUWHSLUOS3188-81-43 20:00:00 Test Item Value Reference Range Interpretation Comments Eosinophils (test code = 0.2 See_Comment N [A utomated message] The Eosinophils) system which ge nerated this result tra nsmitted reference range : <=4.0. The reference r leo was not used to int erpret this result as normal/abnormal . [facility] HospitalXifqnreAMSXTRPFNX3488-13-29 20:00:00 Test Item Value Reference Range Interpretation Comments Basophils (test code = 0.0 See_Comment N [Aut omated message] The Basophils) system which ge nerated this result tra nsmitted reference range : <=1.0. The reference r leo was not used to int erpret this result as normal/abnormal . [facility] HospitalWbviacwMHXSXTGMAX1586-45-02 20:00:00 Test Item Value Reference Range Interpretation Comments Monocytes (test code = Monocytes) 1.9 2.0-12.0 L [facility] HospitalZnxesbwANSBUCNLSA7319-14-11 20:00:00 Test Item Value Reference Range Interpretation Comments Segs (test code = Segs) 86.2 45.0-75.0 H [facility] HospitalNaxirnpDJSMMIOKWI4623-06-64 20:00:00 Test Item Value Reference Range Interpretation Comments Lymphocytes (test code = Lymphocytes) 11.7 20.0-40.0 L [facility] HospitalFnxdwazJYPERFCBTH0248-80-52 20:00:00 Test Item Value Reference Range Interpretation Comments MPV (test code = MPV) 10.8 7.4-10.4 H [facility] HospitalYnxjvrpODJSEVEXFJ7621-15-28 20:00:00 Test Item Value Reference Range Interpretation Comments Platelet (test code = Platelet) 161 133-450 N [facility] HospitalOvezvcnANGWXAOWLP1113-09-75 20:00:00 Test Item Value Reference Range Interpretation Comments MCHC (test code = MCHC) 35.6 32.0-36.0 N [facility] HospitalZiqtagoAGIVHICOGX9721-13-02 20:00:00 Test Item Value Reference Range Interpretation Comments RDW (test code = RDW) 12.4 11.5-14.5 N [facility] HospitalVdmxrgbOOWQFNAOZJ8974-41-17 20:00:00 Test Item Value Reference Range Interpretation Comments MCH (test code = MCH) 30.7 pg 27.0-31.0 N [facility] HospitalYebbslmDSGOCVGKRT7105-72-49 20:00:00 Test Item Value Reference Range Interpretation Comments MCV (test code = MCV) 86.1 81.0-99.0 N [facility] HospitalWrlqaojGINREOUALX6518-07-07 20:00:00 Test Item Value Reference Range Interpretation Comments Hct (test code = Hct) 33.6 36.0-48.0 L [facility] HospitalSsgrhidRDUPQMZXVU4891-78-32 20:00:00 Test Item Value Reference Range Interpretation Comments Hgb (test code = Hgb) 12.0 12.0-16.0 N [facility] HospitalNzteqpsZEMRWHTHFW8767-22-12 20:00:00 Test Item Value Reference Range Interpretation Comments RBC (test code = RBC) 3.90 4.20-5.40 L [facility] HospitalJcxjgksSZCQQOOEGT5086-70-76 20:00:00 Test Item Value Reference Range Interpretation Comments WBC (test code = WBC) 6.6 3.7-10.4 N [facility]DmxtoctCXWFOQCIA6437-20-10 20:00:00 Test Item Value Reference Range Interpretation Comments Lactic Acid Lvl (test code = Lactic 1.6 0.5-2.2 N Acid Lvl) [facility]ervilleEhpxirkWAOOIJTBP7793-80-58 20:00:00 Test Item Value Reference Range Interpretation Comments Lipase Lvl (test code = Lipase Lvl) 125 73-393 N [facility] [place]mohqrpUTIGECGPS7492-48-79 20:00:00 Test Item Value Reference Range Interpretation Comments Albumin Lvl (test code = Albumin Lvl) 4.2 3.5-5.0 N [facility] [place]HoimgrwOWMACMPGP9542-40-76 20:00:00 Test Item Value Reference Range Interpretation Comments CO2 (test code = CO2) 23 24-32 L [facility] [place]AgolnzeEBRSREDZB3616-76-58 20:00:00 Test Item Value Reference Range Interpretation Comments Chloride Lvl (test code = Chloride Lvl) 98 95-109 N [facility] [place]VclncwmMHQHSRQWV1602-29-02 20:00:00 Test Item Value Reference Range Interpretation Comments Potassium Lvl (test code = Potassium 3.8 3.5-5.1 N Lvl) [facility] [place]LeutskhIWJLPUEPW9321-57-67 20:00:00 Test Item Value Reference Range Interpretation Comments Sodium Lvl (test code = Sodium Lvl) 138 135-145 N [facility] [place]YsamaeoTWUCMPGIV9631-86-06 20:00:00 Test Item Value Reference Range Interpretation Comments Creatinine Lvl (test code = Creatinine 0.7 0.5-1.4 N Lvl) [facility] [place]GekalstWWQZYXGIO9854-50-22 20:00:00 Test Item Value Reference Range Interpretation Comments BUN (test code = BUN) 9 7-22 N [facility] [place]UyzenluRDVBQLJRS3719-11-77 20:00:00 Test Item Value Reference Range Interpretation Comments Glucose Lvl (test code = Glucose Lvl) 269 70-99 H [facility] [place]VwdciehOBXGDNOKT0983-61-40 20:00:00 Test Item Value Reference Range Interpretation Comments B/C Ratio (test code = B/C Ratio) 13 6-25 N [facility] [place]ZvvdzldEWDOYEPWP8386-19-49 20:00:00 Test Item Value Reference Range Interpretation Comments AGAP (test code = AGAP) 20.8 10.0-20.0 H [facility] [place]NdtuhctKTROAHRPS2676-90-09 20:00:00 Test Item Value Reference Range Interpretation Comments Calcium Lvl (test code = Calcium Lvl) 9.3 8.5-10.5 N [facility] [place]KjdgyiuZHHOZJRIC6110-03-34 20:00:00 Test Item Value Reference Range Interpretation Comments Total Protein (test code = Total 6.7 6.4-8.4 N Protein) [facility] [place]ervilleLyfnbnxAPCGBBRWP2742-06-83 20:00:00 Test Item Value Reference Range Interpretation Comments A/G Ratio (test code = A/G Ratio) 1.7 0.7-1.6 H [facility] [place]NwqgyimMQYWDEYMT4615-31-48 20:00:00 Test Item Value Reference Range Interpretation Comments Globulin (test code = Globulin) 2.5 2.0-4.0 N [facility] [place]NfecjbgOOCGFPIRK8190-24-24 20:00:00 Test Item Value Reference Range Interpretation Comments AST (test code = AST) 18 See_Comment N [Auto mated message] The system which ge nerated this result transmit rohit reference range : <=37. The reference range was not used to interpr et this result as reji l/abnormal. [facility] [place]ervilleNoxubgqILDIPKSUE7127-65-31 20:00:00 Test Item Value Reference Range Interpretation Comments Alk Phos (test code = Alk Phos) 62 39-136 N [facility] [place]KsdggkvZRUSDPEEB3361-38-80 20:00:00 Test Item Value Reference Range Interpretation Comments ALT (test code = ALT) 32 See_Comment N [Auto mated message] The system which ge nerated this result transmit rohit reference range : <=65. The reference range was not used to interpr et this result as reji l/abnormal. [facility] [place]IcpjnhzGBTZEVRAD4574-37-43 20:00:00 Test Item Value Reference Range Interpretation Comments Bili Total (test code = Bili Total) 0.7 0.2-1.3 N [facility]DtzmreeEGFXENIFWE1796-99-31 20:00:00 Test Item Value Reference Range Interpretation Comments Anisocyte (test code = 1+ *ABN*(11/28/2011 A Anisocyte) 15:00:00) [facility] HospitalHuzimpnYBIABXKWUQ0759-66-00 20:00:00 Test Item Value Reference Range Interpretation Comments Monocytes # (test code 0.1 See_Comment N [Aut omated message] The = Monocytes #) system which generated this result tra nsmitted reference range : <=0.8. The reference r leo was not used to int erpret this result as normal/abnormal . [facility] HospitalYzfzmirQKZVKUJWQW0776-60-02 20:00:00 Test Item Value Reference Range Interpretation Comments Eosinophils # (test code 0.0 See_Comment N [A utomated message] The = Eosinophils #) system whic h generated this result tra nsmitted reference range : <=0.5. The reference r leo was not used to int erpret this result as normal/abnormal . [facility] HospitalNpcsuigKGZEPLFJTS1125-12-86 20:00:00 Test Item Value Reference Range Interpretation Comments Basophils # (test code 0.0 See_Comment N [Aut omated message] The = Basophils #) system which generated this result tra nsmitted reference range : <=0.2. The reference r leo was not used to int erpret this result as normal/abnormal . [facility] HospitalErabrrgFXQEIXZCSR2331-73-01 20:00:00 Test Item Value Reference Range Interpretation Comments Neut Vac (test code = Slight *ABN*(11/28/2011 A Neut Vac) 15:00:00) [facility] HospitalUdncfjiVHENIVPHCT1693-38-04 20:00:00 Test Item Value Reference Range Interpretation Comments Large Plt (test code = Slight *ABN*(11/28/2011 A Large Plt) 15:00:00) [facility] HospitalPbtzfwbBJNPEDSGLH2126-55-99 20:00:00 Test Item Value Reference Range Interpretation Comments Segs-Bands # (test code = Segs-Bands #) 5.7 1.5-8.1 N [facility] HospitalWphijvtJNBGXHVOAO6161-25-96 20:00:00 Test Item Value Reference Range Interpretation Comments Lymphocytes # (test code = Lymphocytes 0.8 1.0-5.5 L #) [facility] HospitalZoaatqcKHASOZXQGN7098-28-40 20:00:00 Test Item Value Reference Range Interpretation Comments Eosinophils (test code = 0.2 See_Comment N [A utomated message] The Eosinophils) system which ge nerated this result tra nsmitted reference range : <=4.0. The reference r leo was not used to int erpret this result as normal/abnormal . [facility] HospitalLiawdjkINWAQWONWI4261-92-07 20:00:00 Test Item Value Reference Range Interpretation Comments Basophils (test code = 0.0 See_Comment N [Aut omated message] The Basophils) system which ge nerated this result tra nsmitted reference range : <=1.0. The reference r leo was not used to int erpret this result as normal/abnormal . [facility] HospitalMrprxerLHVSHFBBBR0956-91-50 20:00:00 Test Item Value Reference Range Interpretation Comments Monocytes (test code = Monocytes) 1.9 2.0-12.0 L [facility] HospitalWxezbgiPNQTOIPWXI6382-59-94 20:00:00 Test Item Value Reference Range Interpretation Comments Segs (test code = Segs) 86.2 45.0-75.0 H [facility] HospitalAlsrmbtHRFJOQLQZP9475-11-27 20:00:00 Test Item Value Reference Range Interpretation Comments Lymphocytes (test code = Lymphocytes) 11.7 20.0-40.0 L [facility] HospitalOswrdqjZHDWTCEHTX7824-93-89 20:00:00 Test Item Value Reference Range Interpretation Comments MPV (test code = MPV) 10.8 7.4-10.4 H [facility] HospitalQxabwzoVFCLUQYYTJ4673-85-27 20:00:00 Test Item Value Reference Range Interpretation Comments Platelet (test code = Platelet) 161 133-450 N [facility] HospitalBinlkvsJNBMVHYULD9012-26-72 20:00:00 Test Item Value Reference Range Interpretation Comments MCHC (test code = MCHC) 35.6 32.0-36.0 N [facility] HospitalVpfbftcYGOAMLJWZC9626-08-14 20:00:00 Test Item Value Reference Range Interpretation Comments RDW (test code = RDW) 12.4 11.5-14.5 N [facility] HospitalQagcggwLPTLQQLMBQ7522-82-41 20:00:00 Test Item Value Reference Range Interpretation Comments MCH (test code = MCH) 30.7 pg 27.0-31.0 N [facility] HospitalMilkxdaXJXOWTPCEO8228-21-47 20:00:00 Test Item Value Reference Range Interpretation Comments MCV (test code = MCV) 86.1 81.0-99.0 N [facility] HospitalByqqmsoYJROXAEMPR8362-43-66 20:00:00 Test Item Value Reference Range Interpretation Comments Hct (test code = Hct) 33.6 36.0-48.0 L [facility] HospitalOjzdnvyHFWYAREIVI2376-40-60 20:00:00 Test Item Value Reference Range Interpretation Comments Hgb (test code = Hgb) 12.0 12.0-16.0 N [facility] HospitalCjxxabtFMLROTHEQG6187-64-08 20:00:00 Test Item Value Reference Range Interpretation Comments RBC (test code = RBC) 3.90 4.20-5.40 L [facility] HospitalOykppkpVAMNQCPJHH1852-56-94 20:00:00 Test Item Value Reference Range Interpretation Comments WBC (test code = WBC) 6.6 3.7-10.4 N [facility] [place]FafxpaiNTLMEHJAE7855-01-68 19:51:00 Test Item Value Reference Range Interpretation Comments UDS Note (test code = See Note UDS Note) 5*NA*(11/28/2011 14:51:00) [facility] [place]TrcflslUOALWVGCT6935-56-33 19:51:00 Test Item Value Reference Range Interpretation Comments U Phencyc Scr (test Negative code = U Phencyc Scr) *NA*(11/28/2011 14:51:00) [facility] [place]FnpldtwBLGVYAWVK9011-77-80 19:51:00 Test Item Value Reference Range Interpretation Comments U Kelly Scr (test code Negative *NA*(11/28/2011 = U Kelly Scr) 14:51:00) [facility] [place]LyduigzCYUDEIMMO0219-89-59 19:51:00 Test Item Value Reference Range Interpretation Comments U Amph Scr (test code Negative *NA*(11/28/2011 = U Amph Scr) 14:51:00) [facility] [place]XnajvlzUOYYOYXNH9119-42-53 19:51:00 Test Item Value Reference Range Interpretation Comments U Opiate Scr (test Negative code = U Opiate Scr) *NA*(11/28/2011 14:51:00) [facility] [place]EtzvwfzUNLTWOGWS8243-26-41 19:51:00 Test Item Value Reference Range Interpretation Comments U Cocaine Scr (test Negative code = U Cocaine Scr) *NA*(11/28/2011 14:51:00) [facility] [place]FzbdcfeCORORYWNI6711-68-76 19:51:00 Test Item Value Reference Range Interpretation Comments U Cannab Scr (test Negative code = U Cannab Scr) *NA*(11/28/2011 14:51:00) [facility] [place]JzfpuapJGGANFVXB5319-08-21 19:51:00 Test Item Value Reference Range Interpretation Comments U Benzodia Scr (test Negative code = U Benzodia Scr) *NA*(11/28/2011 14:51:00) [facility] [place]ervilleInstsxiABKNKOIYR5875-62-77 19:51:00 Test Item Value Reference Range Interpretation Comments UDS Note (test code = See Note UDS Note) 5*NA*(11/28/2011 14:51:00) [facility]IrgfmbdPBNITKGJM9727-06-52 19:51:00 Test Item Value Reference Range Interpretation Comments U Phencyc Scr (test Negative code = U Phencyc Scr) *NA*(11/28/2011 14:51:00) [facility] DallasXvvcoxaPSJENJCLH8704-21-03 19:51:00 Test Item Value Reference Range Interpretation Comments U Kelly Scr (test code Negative *NA*(11/28/2011 = U Kelly Scr) 14:51:00) [facility] DallasKpmbygvPPBWYPFNZ8793-22-71 19:51:00 Test Item Value Reference Range Interpretation Comments U Amph Scr (test code Negative *NA*(11/28/2011 = U Amph Scr) 14:51:00) [facility] DallasFgqlkosOHCGAOWVK1034-29-68 19:51:00 Test Item Value Reference Range Interpretation Comments U Opiate Scr (test Negative code = U Opiate Scr) *NA*(11/28/2011 14:51:00) [facility] DallasNvrjhcoOWFOCSJNH2064-44-78 19:51:00 Test Item Value Reference Range Interpretation Comments U Cocaine Scr (test Negative code = U Cocaine Scr) *NA*(11/28/2011 14:51:00) [facility] DallasHhjrvrxCEJMALCKS1305-61-93 19:51:00 Test Item Value Reference Range Interpretation Comments U Cannab Scr (test Negative code = U Cannab Scr) *NA*(11/28/2011 14:51:00) [facility] DallasNckbllzUBDPDEXAB0780-07-01 19:51:00 Test Item Value Reference Range Interpretation Comments U Benzodia Scr (test Negative code = U Benzodia Scr) *NA*(11/28/2011 14:51:00) [facility] DallasVvninzwKWIPXEKAS6394-79-15 19:51:00 Test Item Value Reference Range Interpretation Comments UDS Note (test code = See Note UDS Note) 5*NA*(11/28/2011 14:51:00) [facility] DallasGewapvfJXETLSXWT7805-98-56 19:51:00 Test Item Value Reference Range Interpretation Comments U Phencyc Scr (test Negative code = U Phencyc Scr) *NA*(11/28/2011 14:51:00) [facility] [place]FryzfgjKBHSCISNG5455-68-51 19:51:00 Test Item Value Reference Range Interpretation Comments U Kelly Scr (test code Negative *NA*(11/28/2011 = U Kelly Scr) 14:51:00) [facility] [place]ervilleSnwvxukCCRFJXQQS7902-28-15 19:51:00 Test Item Value Reference Range Interpretation Comments U Amph Scr (test code Negative *NA*(11/28/2011 = U Amph Scr) 14:51:00) [facility] [place]WxyayogJBFQIHCOA1500-02-91 19:51:00 Test Item Value Reference Range Interpretation Comments U Opiate Scr (test Negative code = U Opiate Scr) *NA*(11/28/2011 14:51:00) [facility] [place]ervilleZzuabfiGQNDZTVAM8390-50-01 19:51:00 Test Item Value Reference Range Interpretation Comments U Cocaine Scr (test Negative code = U Cocaine Scr) *NA*(11/28/2011 14:51:00) [facility] [place]FsyhdyiSVRSHUVZK7685-64-12 19:51:00 Test Item Value Reference Range Interpretation Comments U Cannab Scr (test Negative code = U Cannab Scr) *NA*(11/28/2011 14:51:00) [facility] [place]ervilleZkpitweBWGVQBMYG3596-05-41 19:51:00 Test Item Value Reference Range Interpretation Comments U Benzodia Scr (test Negative code = U Benzodia Scr) *NA*(11/28/2011 14:51:00) [facility] [place]HkkjxswLONVROTOF4007-93-89 19:51:00 Test Item Value Reference Range Interpretation Comments UDS Note (test code = See Note UDS Note) 5*NA*(11/28/2011 14:51:00) [facility] [place]KffgfcrSKKEBQZRY8238-14-17 19:51:00 Test Item Value Reference Range Interpretation Comments U Phencyc Scr (test Negative code = U Phencyc Scr) *NA*(11/28/2011 14:51:00) [facility] [place]ervilleOwcfdlrXIRXYNKEA5493-84-32 19:51:00 Test Item Value Reference Range Interpretation Comments U Kelly Scr (test code Negative *NA*(11/28/2011 = U Kelly Scr) 14:51:00) [facility] [place]QmxtaftHTCWHERRG0262-80-89 19:51:00 Test Item Value Reference Range Interpretation Comments U Amph Scr (test code Negative *NA*(11/28/2011 = U Amph Scr) 14:51:00) [facility] [place]XbcfxkyGHZBSENTN3248-09-38 19:51:00 Test Item Value Reference Range Interpretation Comments U Opiate Scr (test Negative code = U Opiate Scr) *NA*(11/28/2011 14:51:00) [facility] [place]ervilleWqzgjolBUZGOWPVW6712-74-13 19:51:00 Test Item Value Reference Range Interpretation Comments U Cocaine Scr (test Negative code = U Cocaine Scr) *NA*(11/28/2011 14:51:00) [facility] [place]ervilleMjzwxygGSWIFHJUQ8015-60-64 19:51:00 Test Item Value Reference Range Interpretation Comments U Cannab Scr (test Negative code = U Cannab Scr) *NA*(11/28/2011 14:51:00) [facility] [place]ervilleVvshatqPGDFWYTMC7192-56-20 19:51:00 Test Item Value Reference Range Interpretation Comments U Benzodia Scr (test Negative code = U Benzodia Scr) *NA*(11/28/2011 14:51:00) [facility] [place]ervilleBnarjsoCPACVDCER4174-70-40 19:51:00 Test Item Value Reference Range Interpretation Comments UDS Note (test code = See Note UDS Note) 5*NA*(11/28/2011 14:51:00) [facility] [place]ervilleEuvezuwLKSFGXKUB1106-74-98 19:51:00 Test Item Value Reference Range Interpretation Comments U Phencyc Scr (test Negative code = U Phencyc Scr) *NA*(11/28/2011 14:51:00) [facility] [place]JfqqaytLXFDMMIHF2281-27-35 19:51:00 Test Item Value Reference Range Interpretation Comments U Kelly Scr (test code Negative *NA*(11/28/2011 = U Kelly Scr) 14:51:00) [facility] [place]ervilleIhqjftoQEPDLGJAA5899-27-69 19:51:00 Test Item Value Reference Range Interpretation Comments U Amph Scr (test code Negative *NA*(11/28/2011 = U Amph Scr) 14:51:00) [facility] [place]KnefbkkMJMALOUFV1874-77-53 19:51:00 Test Item Value Reference Range Interpretation Comments U Opiate Scr (test Negative code = U Opiate Scr) *NA*(11/28/2011 14:51:00) [facility] [place]ervillePaghuvzVCUCGQMCC4745-09-56 19:51:00 Test Item Value Reference Range Interpretation Comments U Cocaine Scr (test Negative code = U Cocaine Scr) *NA*(11/28/2011 14:51:00) [facility] [place]EdsmefzMSDGWBILL3199-68-58 19:51:00 Test Item Value Reference Range Interpretation Comments U Cannab Scr (test Negative code = U Cannab Scr) *NA*(11/28/2011 14:51:00) [facility] [place]FswtlnoBEWIODRKB4116-10-09 19:51:00 Test Item Value Reference Range Interpretation Comments U Benzodia Scr (test Negative code = U Benzodia Scr) *NA*(11/28/2011 14:51:00) [facility] GLUCOSE QAWLBUW3272-50-60 16:20:00 Test Item Value Reference Range Interpretation Comments Comment1 (test code = Comment1) Notify RN/ [facility] GLUCOSE JLKDBPR7731-09-33 16:20:00 Test Item Value Reference Range Interpretation Comments Gluc POC Lifscn (test code = Gluc POC 328 70-99 H Lifscn) [facility] GLUCOSE QMBOSWY9389-82-97 16:20:00 Test Item Value Reference Range Interpretation Comments Comment1 (test code = Comment1) Notify RN/ [facility] GLUCOSE GFXTWXT4329-15-80 16:20:00 Test Item Value Reference Range Interpretation Comments Gluc POC Lifscn (test code = Gluc POC 328 70-99 H Lifscn) [facility] GLUCOSE [id number] 16:20:00 Test Item Value Reference Range Interpretation Comments Comment1 (test code = Comment1) Notify RN/ [facility] GLUCOSE TGKUFVE4658-96-43 16:20:00 Test Item Value Reference Range Interpretation Comments Gluc POC Lifscn (test code = Gluc POC 328 70-99 H Lifscn) [facility] GLUCOSE MMPKNUJ9761-34-52 16:20:00 Test Item Value Reference Range Interpretation Comments Comment1 (test code = Comment1) Notify RN/ [facility] GLUCOSE RSBLZTU2798-18-10 16:20:00 Test Item Value Reference Range Interpretation Comments Gluc POC Lifscn (test code = Gluc POC 328 70-99 H Lifscn) [facility] GLUCOSE QZOQCLT1776-50-11 16:20:00 Test Item Value Reference Range Interpretation Comments Comment1 (test code = Comment1) Notify RN/ [facility] GLUCOSE LTGPHCD9076-43-65 16:20:00 Test Item Value Reference Range Interpretation Comments Gluc POC Lifscn (test code = Gluc POC 328 70-99 H Lifscn) [facility] ResourcesWxamucoZEPLUEFCT9894-93-96 15:30:00 Test Item Value Reference Range Interpretation Comments U Preg (test code = U Negative (09/18/2011 N Preg) 10:30:00) [facility] ResourcesOifhmtxFRQQRCQHUJ0931-15-20 15:30:00 Test Item Value Reference Range Interpretation Comments UA WBC (test code = UA None Seen (09/18/2011 N WBC) 10:30:00) [facility] ResourcesObvdxmjWHPLEZVOPP5152-48-80 15:30:00 Test Item Value Reference Range Interpretation Comments UA RBC (test None Seen See_Comment N [Automated mes pastor] code = UA RBC) (09/18/2011 The system wh ich 10:30:00) generated this result transmitted ref erence range: <=2. The reference range was not used to int erpret this result as normal/abnormal . [facility] ResourcesXxfbnpvGKPBTBSFEN6057-48-66 15:30:00 Test Item Value Reference Range Interpretation Comments UA Bacteria (test code = None Seen (09/18/2011 N UA Bacteria) 10:30:00) [facility] ResourcesMkwoekdOZIGOAAZAE1885-44-71 15:30:00 Test Item Value Reference Range Interpretation Comments UA Amorph Destiny (test Few /HPF A code = UA Amorph Destiny) *ABN*(09/18/2011 10:30:00) [facility] ResourcesAfhcfodJDKAYRTHRN2246-56-24 15:30:00 Test Item Value Reference Range Interpretation Comments Micro? (test code = Performed (09/18/2011 N Micro?) 10:30:00) [facility] ResourcesOnqvzfxBOUHSYWFQY8979-80-71 15:30:00 Test Item Value Reference Range Interpretation Comments UA Sq Epi (test code = Rare /LPF (09/18/2011 N UA Sq Epi) 10:30:00) [facility] ResourcesJmswfskXBMYXZOMTJ6073-25-93 15:30:00 Test Item Value Reference Range Interpretation Comments UA Ketones (test code = 15 mg/dL A UA Ketones) *ABN*(09/18/2011 10:30:00) [facility] ResourcesKfxdsfvOJYYPSGRJU1910-25-35 15:30:00 Test Item Value Reference Range Interpretation Comments UA Glucose (test code = >=1000 mg/dL A UA Glucose) *ABN*(09/18/2011 10:30:00) [facility]WqxarzfBFHMVGFCPJ3244-26-93 15:30:00 Test Item Value Reference Range Interpretation Comments UA Protein (test code = Trace A UA Protein) *ABN*(09/18/2011 10:30:00) [facility] HospitalPxybcqsYEGNBUWWMZ0010-90-82 15:30:00 Test Item Value Reference Range Interpretation Comments UA Urobilinogen (test code = UA 0.2 0.1-1.0 N Urobilinogen) [facility] HospitalIyoyqjmZXYAXLVJQN4571-08-46 15:30:00 Test Item Value Reference Range Interpretation Comments UA Blood (test code = Negative (09/18/2011 N UA Blood) 10:30:00) [facility] HospitalBtohdsuIKFNLBKJSB0639-23-97 15:30:00 Test Item Value Reference Range Interpretation Comments UA Bili (test code = Negative *NA*(09/18/2011 UA Bili) 10:30:00) [facility] HospitalKiczkkaOYFRTSVAEC9952-18-11 15:30:00 Test Item Value Reference Range Interpretation Comments UA Leuk Est (test Negative (09/18/2011 N code = UA Leuk Est) 10:30:00) [facility] HospitalMcxyfngXXRNLJIWYS9000-13-72 15:30:00 Test Item Value Reference Range Interpretation Comments UA Nitrite (test code Negative (09/18/2011 N = UA Nitrite) 10:30:00) [facility] HospitalHcuilrjIMEATFWEJU9521-21-07 15:30:00 Test Item Value Reference Range Interpretation Comments UA pH (test code = UA pH) 7.5 1 5.0-8.0 N [facility] HospitalDazuyflAYFCZYXKMX7249-21-58 15:30:00 Test Item Value Reference Range Interpretation Comments UA Spec Grav (test code = UA Spec 1.010 1 N Grav) [facility] HospitalWxgdfpfIEMMJFOMTV8516-49-70 15:30:00 Test Item Value Reference Range Interpretation Comments UA Turbidity (test code Slight Cloudy N = UA Turbidity) (09/18/2011 10:30:00) [facility] HospitalWztnjviXMTZZDWRFF5648-87-29 15:30:00 Test Item Value Reference Range Interpretation Comments UA Color (test code = Yellow *NA*(09/18/2011 UA Color) 10:30:00) [facility] ResourcesSegmmswFCBBOBZOI4957-86-94 15:30:00 Test Item Value Reference Range Interpretation Comments U Preg (test code = U Negative (09/18/2011 N Preg) 10:30:00) [facility] ResourcesYpelyjtQMBMCPORGU2253-07-95 15:30:00 Test Item Value Reference Range Interpretation Comments UA WBC (test code = UA None Seen (09/18/2011 N WBC) 10:30:00) [facility] CenterUjnjxpkGSIXNADSGV4227-87-21 15:30:00 Test Item Value Reference Range Interpretation Comments UA RBC (test None Seen See_Comment N [Automated mes pastor] code = UA RBC) (09/18/2011 The system [employer] ich 10:30:00) generated this result transmitted ref erence range: <=2. The reference range was not used to int erpret this result as normal/abnormal . [facility] CenterBioodefOCZNDTVFYK4455-77-09 15:30:00 Test Item Value Reference Range Interpretation Comments UA Bacteria (test code = None Seen (09/18/2011 N UA Bacteria) 10:30:00) [facility] CenterNgqptohRVVACYJJNV3973-17-29 15:30:00 Test Item Value Reference Range Interpretation Comments UA Amorph Destiny (test Few /HPF A code = UA Amorph Destiny) *ABN*(09/18/2011 10:30:00) [facility] CenterCrehxboHRXQVZSGGR0760-93-37 15:30:00 Test Item Value Reference Range Interpretation Comments Micro? (test code = Performed (09/18/2011 N Micro?) 10:30:00) [facility] CenterCdbpxtiMPXOEQVPOS0545-57-35 15:30:00 Test Item Value Reference Range Interpretation Comments UA Sq Epi (test code = Rare /LPF (09/18/2011 N UA Sq Epi) 10:30:00) [facility] ResourcesVvfehdfUXRBMNHNJT0875-18-38 15:30:00 Test Item Value Reference Range Interpretation Comments UA Ketones (test code = 15 mg/dL A UA Ketones) *ABN*(09/18/2011 10:30:00) [facility] CenterDhrznraXFOOBXXVDQ6953-51-99 15:30:00 Test Item Value Reference Range Interpretation Comments UA Glucose (test code = >=1000 mg/dL A UA Glucose) *ABN*(09/18/2011 10:30:00) [facility] CenterPjkddyfOXAWHRBKUW4589-02-92 15:30:00 Test Item Value Reference Range Interpretation Comments UA Protein (test code = Trace A UA Protein) *ABN*(09/18/2011 10:30:00) [facility] CenterBvozygtCMJJICHNFO0903-86-41 15:30:00 Test Item Value Reference Range Interpretation Comments UA Urobilinogen (test code = UA 0.2 0.1-1.0 N Urobilinogen) [facility] CenterOgdivxaCUQLZXOMRP9353-06-97 15:30:00 Test Item Value Reference Range Interpretation Comments UA Blood (test code = Negative (09/18/2011 N UA Blood) 10:30:00) [facility] CenterRkgvafyJGIHNMIOSZ8224-83-76 15:30:00 Test Item Value Reference Range Interpretation Comments UA Bili (test code = Negative *NA*(09/18/2011 UA Bili) 10:30:00) [facility] CenterIcjpyirHFBLRNEAHD7980-69-33 15:30:00 Test Item Value Reference Range Interpretation Comments UA Leuk Est (test Negative (09/18/2011 N code = UA Leuk Est) 10:30:00) [facility] CenterXwiblirSHTLVWKZYP4145-29-59 15:30:00 Test Item Value Reference Range Interpretation Comments UA Nitrite (test code Negative (09/18/2011 N = UA Nitrite) 10:30:00) [facility] CenterXopclmgJFDQIYDGDD8748-63-01 15:30:00 Test Item Value Reference Range Interpretation Comments UA pH (test code = UA pH) 7.5 1 5.0-8.0 N [facility] CenterImsehjfZDJOFGAJSP7216-97-42 15:30:00 Test Item Value Reference Range Interpretation Comments UA Spec Grav (test code = UA Spec 1.010 1 N Grav) [facility] CenterPscewmvUFTOSEWUNA2198-88-46 15:30:00 Test Item Value Reference Range Interpretation Comments UA Turbidity (test code Slight Cloudy N = UA Turbidity) (09/18/2011 10:30:00) [facility] CenterHxeoxjwLUSQRFNEPU0246-37-87 15:30:00 Test Item Value Reference Range Interpretation Comments UA Color (test code = Yellow *NA*(09/18/2011 UA Color) 10:30:00) [facility] ResourcesKmjobydJAPOCRUXW2733-38-02 15:30:00 Test Item Value Reference Range Interpretation Comments U Preg (test code = U Negative (09/18/2011 N Preg) 10:30:00) [facility]WhewteaBENWSBXZSG2579-59-70 15:30:00 Test Item Value Reference Range Interpretation Comments UA WBC (test code = UA None Seen (09/18/2011 N WBC) 10:30:00) [facility] ResourcesBpfrspxKGPADEJSLN5724-39-05 15:30:00 Test Item Value Reference Range Interpretation Comments UA RBC (test None Seen See_Comment N [Automated mes pastor] code = UA RBC) (09/18/2011 The system [employer] ich 10:30:00) generated this result transmitted ref erence range: <=2. The reference range was not used to int erpret this result as normal/abnormal . [facility] CenterJwjrlvyPKLVPNCBSL1242-34-16 15:30:00 Test Item Value Reference Range Interpretation Comments UA Bacteria (test code = None Seen (09/18/2011 N UA Bacteria) 10:30:00) [facility] ResourcesMiypzcoQIBBPVJJND3728-72-26 15:30:00 Test Item Value Reference Range Interpretation Comments UA Amorph Destniy (test Few /HPF A code = UA Amorph Destiny) *ABN*(09/18/2011 10:30:00) [facility] ResourcesZjhgvbbFJVHNNYPYQ4498-61-42 15:30:00 Test Item Value Reference Range Interpretation Comments Micro? (test code = Performed (09/18/2011 N Micro?) 10:30:00) [facility] CenterIlytobsCNKISNJDIH9548-25-45 15:30:00 Test Item Value Reference Range Interpretation Comments UA Sq Epi (test code = Rare /LPF (09/18/2011 N UA Sq Epi) 10:30:00) [facility] ResourcesMrdyejaADONRSQWXO8642-81-47 15:30:00 Test Item Value Reference Range Interpretation Comments UA Ketones (test code = 15 mg/dL A UA Ketones) *ABN*(09/18/2011 10:30:00) [facility] CenterXbcvcvkCPFBPCJYYO1176-29-72 15:30:00 Test Item Value Reference Range Interpretation Comments UA Glucose (test code = >=1000 mg/dL A UA Glucose) *ABN*(09/18/2011 10:30:00) [facility] ResourcesTrfafbgBTHXRTPQZN3950-36-91 15:30:00 Test Item Value Reference Range Interpretation Comments UA Protein (test code = Trace A UA Protein) *ABN*(09/18/2011 10:30:00) [facility] CenterPwgsffyRRMAMUQMEQ9108-57-71 15:30:00 Test Item Value Reference Range Interpretation Comments UA Urobilinogen (test code = UA 0.2 0.1-1.0 N Urobilinogen) [facility] CenterZbyeqzuVIUAESNOSF6772-40-52 15:30:00 Test Item Value Reference Range Interpretation Comments UA Blood (test code = Negative (09/18/2011 N UA Blood) 10:30:00) [facility] CenterZakdwkcGAUICKDJMU0866-58-36 15:30:00 Test Item Value Reference Range Interpretation Comments UA Bili (test code = Negative *NA*(09/18/2011 UA Bili) 10:30:00) [facility] CenterFklhwocDACKZWLRMV7690-67-48 15:30:00 Test Item Value Reference Range Interpretation Comments UA Leuk Est (test Negative (09/18/2011 N code = UA Leuk Est) 10:30:00) [facility] ResourcesFzihdesHADXUIKOMJ3098-20-55 15:30:00 Test Item Value Reference Range Interpretation Comments UA Nitrite (test code Negative (09/18/2011 N = UA Nitrite) 10:30:00) [facility] CenterFsavdqaENMZZNDUAU9843-22-12 15:30:00 Test Item Value Reference Range Interpretation Comments UA pH (test code = UA pH) 7.5 1 5.0-8.0 N [facility] CenterKtapjpaAMOBPVAZPC6097-83-00 15:30:00 Test Item Value Reference Range Interpretation Comments UA Spec Grav (test code = UA Spec 1.010 1 N Grav) [facility] CenterMykhkgtBHLVGZZCEK5878-34-31 15:30:00 Test Item Value Reference Range Interpretation Comments UA Turbidity (test code Slight Cloudy N = UA Turbidity) (09/18/2011 10:30:00) [facility] CenterOyphwrnXLRHGLOXGB7670-60-86 15:30:00 Test Item Value Reference Range Interpretation Comments UA Color (test code = Yellow *NA*(09/18/2011 UA Color) 10:30:00) [facility] ResourcesWezuplqXFEZPGSRP8237-48-97 15:30:00 Test Item Value Reference Range Interpretation Comments U Preg (test code = U Negative (09/18/2011 N Preg) 10:30:00) [facility] CenterTtrvzchHFVANYXOBV2673-22-23 15:30:00 Test Item Value Reference Range Interpretation Comments UA WBC (test code = UA None Seen (09/18/2011 N WBC) 10:30:00) [facility] CenterIxkysctXJFEMDPLPO6888-99-25 15:30:00 Test Item Value Reference Range Interpretation Comments UA RBC (test None Seen See_Comment N [Automated mes pastor] code = UA RBC) (09/18/2011 The system wh ich 10:30:00) generated this result transmitted ref erence range: <=2. The reference range was not used to int erpret this result as normal/abnormal . [facility]ZrymkyhFMHUTLTUDT1712-01-28 15:30:00 Test Item Value Reference Range Interpretation Comments UA Bacteria (test code = None Seen (09/18/2011 N UA Bacteria) 10:30:00) [facility] HospitalHcdokdpIGWFTGGYUN2974-84-61 15:30:00 Test Item Value Reference Range Interpretation Comments UA Amorph Destiny (test Few /HPF A code = UA Amorph Destiny) *ABN*(09/18/2011 10:30:00) [facility] CenterFidpcknFUCKJETJFP5002-17-88 15:30:00 Test Item Value Reference Range Interpretation Comments Micro? (test code = Performed (09/18/2011 N Micro?) 10:30:00) [facility] CenterVijgarkQVOOQVHSXW0631-49-61 15:30:00 Test Item Value Reference Range Interpretation Comments UA Sq Epi (test code = Rare /LPF (09/18/2011 N UA Sq Epi) 10:30:00) [facility] CenterYjdbbvcYTMJWHSZUD1061-38-01 15:30:00 Test Item Value Reference Range Interpretation Comments UA Ketones (test code = 15 mg/dL A UA Ketones) *ABN*(09/18/2011 10:30:00) [facility] CenterXsyivrtWCYBGHMMBV4801-81-71 15:30:00 Test Item Value Reference Range Interpretation Comments UA Glucose (test code = >=1000 mg/dL A UA Glucose) *ABN*(09/18/2011 10:30:00) [facility] CenterHmjgtnbSCTVPVFGWJ3678-82-05 15:30:00 Test Item Value Reference Range Interpretation Comments UA Protein (test code = Trace A UA Protein) *ABN*(09/18/2011 10:30:00) [facility] ResourcesHfwnjlvNAWNPMKGAU3132-78-66 15:30:00 Test Item Value Reference Range Interpretation Comments UA Urobilinogen (test code = UA 0.2 0.1-1.0 N Urobilinogen) [facility] CenterLlrvhvvMHXYXYQMWA4050-64-94 15:30:00 Test Item Value Reference Range Interpretation Comments UA Blood (test code = Negative (09/18/2011 N UA Blood) 10:30:00) [facility] ResourcesGstzhpzNOXLWIMJGY0235-40-92 15:30:00 Test Item Value Reference Range Interpretation Comments UA Bili (test code = Negative *NA*(09/18/2011 UA Bili) 10:30:00) [facility] ResourcesWdahtpuPOPQWIBFRT9845-44-44 15:30:00 Test Item Value Reference Range Interpretation Comments UA Leuk Est (test Negative (09/18/2011 N code = UA Leuk Est) 10:30:00) [facility] CenterQqctlmaBZTUNRONXR0510-99-77 15:30:00 Test Item Value Reference Range Interpretation Comments UA Nitrite (test code Negative (09/18/2011 N = UA Nitrite) 10:30:00) [facility] ResourcesNelpeqqAUCINDHHIX6122-30-84 15:30:00 Test Item Value Reference Range Interpretation Comments UA pH (test code = UA pH) 7.5 1 5.0-8.0 N [facility]CxsfumvBBIYKQIQFR5610-92-44 15:30:00 Test Item Value Reference Range Interpretation Comments UA Spec Grav (test code = UA Spec 1.010 1 N Grav) [facility] ResourcesObhpbeaIRJVIBGGCG3372-15-61 15:30:00 Test Item Value Reference Range Interpretation Comments UA Turbidity (test code Slight Cloudy N = UA Turbidity) (09/18/2011 10:30:00) [facility] CenterJbydrneAZPRJNDJML1208-08-71 15:30:00 Test Item Value Reference Range Interpretation Comments UA Color (test code = Yellow *NA*(09/18/2011 UA Color) 10:30:00) [facility] ResourcesEbhyzshKCIFVAEJT7995-37-96 15:30:00 Test Item Value Reference Range Interpretation Comments U Preg (test code = U Negative (09/18/2011 N Preg) 10:30:00) [facility] ResourcesUsvzfxoWESUZICYFH4511-24-44 15:30:00 Test Item Value Reference Range Interpretation Comments UA WBC (test code = UA None Seen (09/18/2011 N WBC) 10:30:00) [facility] HospitalHtlsgfbESMQTRCPDS3413-74-22 15:30:00 Test Item Value Reference Range Interpretation Comments UA RBC (test None Seen See_Comment N [Automated mes pastor] code = UA RBC) (09/18/2011 The system ich 10:30:00) generated this result transmitted ref erence range: <=2. The reference range was not used to int erpret this result as normal/abnormal . [facility] HospitalXiyowlqBLXQAKJYQD0378-32-43 15:30:00 Test Item Value Reference Range Interpretation Comments UA Bacteria (test code = None Seen (09/18/2011 N UA Bacteria) 10:30:00) [facility] HospitalBbtcvceHBOVCKXFRN8375-68-85 15:30:00 Test Item Value Reference Range Interpretation Comments UA Amorph Destiny (test Few /HPF A code = UA Amorph Destiny) *ABN*(09/18/2011 10:30:00) [facility] HospitalOhoyibiNVDZGFWZAO0067-75-64 15:30:00 Test Item Value Reference Range Interpretation Comments Micro? (test code = Performed (09/18/2011 N Micro?) 10:30:00) [facility] HospitalOordyynQPMVXTNNJT2344-81-42 15:30:00 Test Item Value Reference Range Interpretation Comments UA Sq Epi (test code = Rare /LPF (09/18/2011 N UA Sq Epi) 10:30:00) [facility] HospitalVimivvoYZLVMTNWRR9884-36-91 15:30:00 Test Item Value Reference Range Interpretation Comments UA Ketones (test code = 15 mg/dL A UA Ketones) *ABN*(09/18/2011 10:30:00) [facility] CenterYkizyrhYDKYECPNHL9534-23-57 15:30:00 Test Item Value Reference Range Interpretation Comments UA Glucose (test code = >=1000 mg/dL A UA Glucose) *ABN*(09/18/2011 10:30:00) [facility] CenterHvahqzoVSFKSXWKCR6269-26-40 15:30:00 Test Item Value Reference Range Interpretation Comments UA Protein (test code = Trace A UA Protein) *ABN*(09/18/2011 10:30:00) [facility] CenterJfuvmkaENDCMFNSQL8830-30-84 15:30:00 Test Item Value Reference Range Interpretation Comments UA Urobilinogen (test code = UA 0.2 0.1-1.0 N Urobilinogen) [facility] CenterKrmvaiaZIJLJBYOZL5301-36-08 15:30:00 Test Item Value Reference Range Interpretation Comments UA Blood (test code = Negative (09/18/2011 N UA Blood) 10:30:00) [facility] CenterEzvmbntDKTCBOSTWF4920-87-47 15:30:00 Test Item Value Reference Range Interpretation Comments UA Bili (test code = Negative *NA*(09/18/2011 UA Bili) 10:30:00) [facility] CenterJwucdqjRXXBRVDJJQ9120-25-37 15:30:00 Test Item Value Reference Range Interpretation Comments UA Leuk Est (test Negative (09/18/2011 N code = UA Leuk Est) 10:30:00) [facility] CenterAxizvdlIXCGVXDEFQ1497-41-58 15:30:00 Test Item Value Reference Range Interpretation Comments UA Nitrite (test code Negative (09/18/2011 N = UA Nitrite) 10:30:00) [facility] CenterNafqtveFDOULHYIJK2056-58-66 15:30:00 Test Item Value Reference Range Interpretation Comments UA pH (test code = UA pH) 7.5 1 5.0-8.0 N [facility] CenterJqymcsgOJJHKKLQFD9021-16-60 15:30:00 Test Item Value Reference Range Interpretation Comments UA Spec Grav (test code = UA Spec 1.010 1 N Grav) [facility] CenterUvdjdauFZXDRGSNMI4525-57-49 15:30:00 Test Item Value Reference Range Interpretation Comments UA Turbidity (test code Slight Cloudy N = UA Turbidity) (09/18/2011 10:30:00) [facility] CenterVgvsaiwRCRWCHTVYV3835-73-51 15:30:00 Test Item Value Reference Range Interpretation Comments UA Color (test code = Yellow *NA*(09/18/2011 UA Color) 10:30:00) [facility]XoilbqjNDKMXMTRU8395-29-05 14:07:00 Test Item Value Reference Range Interpretation Comments Phosphorus (test code = Phosphorus) 4.4 2.5-4.5 N [facility] [place]ervilleWbsvajlOBKFTHMWQ8492-89-70 14:07:00 Test Item Value Reference Range Interpretation Comments Magnesium Lvl (test code = Magnesium 1.6 1.8-2.4 L Lvl) [facility] [place]VqbqyqrFPJHYETNR3197-18-15 14:07:00 Test Item Value Reference Range Interpretation Comments Phosphorus (test code = Phosphorus) 4.4 2.5-4.5 N [facility] [place]CfrvovjHNYDHUWCS2207-26-85 14:07:00 Test Item Value Reference Range Interpretation Comments Magnesium Lvl (test code = Magnesium 1.6 1.8-2.4 L Lvl) [facility] [place]OrurlykQSBNJNQCX9035-53-05 14:07:00 Test Item Value Reference Range Interpretation Comments Phosphorus (test code = Phosphorus) 4.4 2.5-4.5 N [facility] [place]CzopdyuDJVYHTGJS8075-06-74 14:07:00 Test Item Value Reference Range Interpretation Comments Magnesium Lvl (test code = Magnesium 1.6 1.8-2.4 L Lvl) [facility] [place]TtjdcqrXEVRWWCZY5476-96-05 14:07:00 Test Item Value Reference Range Interpretation Comments Phosphorus (test code = Phosphorus) 4.4 2.5-4.5 N [facility] [place]YyuzyfuLOJYZUHBL4761-76-76 14:07:00 Test Item Value Reference Range Interpretation Comments Magnesium Lvl (test code = Magnesium 1.6 1.8-2.4 L Lvl) [facility] [place]BbwwfqvWIPPPOPCN4267-36-39 14:07:00 Test Item Value Reference Range Interpretation Comments Phosphorus (test code = Phosphorus) 4.4 2.5-4.5 N [facility] [place]QcxmwxeMCVJQBCRE2908-61-21 14:07:00 Test Item Value Reference Range Interpretation Comments Magnesium Lvl (test code = Magnesium 1.6 1.8-2.4 L Lvl) [facility] GLUCOSE ANHHEYE6565-21-60 14:01:00 Test Item Value Reference Range Interpretation Comments Gluc POC Lifscn (test code = Gluc POC no gt 70-99 A Lifscn) [facility] GLUCOSE CUWDXTF8999-48-04 14:01:00 Test Item Value Reference Range Interpretation Comments Gluc POC Lifscn (test code = Gluc POC no gt 70-99 A Lifscn) [facility] GLUCOSE GFJBVLY8046-35-32 14:01:00 Test Item Value Reference Range Interpretation Comments Gluc POC Lifscn (test code = Gluc POC no gt 70-99 A Lifscn) [facility] GLUCOSE YAWBAFH8766-10-48 14:01:00 Test Item Value Reference Range Interpretation Comments Gluc POC Lifscn (test code = Gluc POC no gt 70-99 A Lifscn) [facility] ASSWWWZ4384-08-76 14:01:00 Test Item Value Reference Range Interpretation Comments Gluc POC Lifscn (test code = Gluc POC no gt 70-99 A Lifscn) [facility] [place]NffjpggDIIIIDQIN4310-64-31 13:52:00 Test Item Value Reference Range Interpretation Comments pO2 Roberth (test code = pO2 Roberth) 24 20-49 N [facility]ervilleWpirityRWWVZWKLX9964-94-55 13:52:00 Test Item Value Reference Range Interpretation Comments HCO3 Roberth (test code = HCO3 Roberth) 32.0 22.0-26.0 H [facility] [place]TmzvsvxDGSUCTWZJ8515-32-42 13:52:00 Test Item Value Reference Range Interpretation Comments pCO2 Roberth (test code = pCO2 Roberth) 44 38-52 N [facility] [place]OjcaypcSXPLWEBPB6722-37-79 13:52:00 Test Item Value Reference Range Interpretation Comments BE Roberth (test code = 7 See_Comment H [Automa rohit message] The BE Roberth) system which ge nerated this result transmit rohit reference range : <=2. The reference range was not used to interpr et this result as reji l/abnormal. [facility]ervilleIhmzqvfXXTHFKAHO4470-35-65 13:52:00 Test Item Value Reference Range Interpretation Comments O2 Sat Roberth (test code = O2 Sat Roberth) 48.0 40.0-70.0 N [facility] [place]ervilleKlxyyspTAQHSVJLU8287-63-92 13:52:00 Test Item Value Reference Range Interpretation Comments Temp Roberth (test code = Temp Roberth) 37.0 [facility] [place]XglckenDBXYHUKJB0867-19-76 13:52:00 Test Item Value Reference Range Interpretation Comments pH Roberth (test code = pH Roberth) 7.47 7.28-7.42 H [facility] [place]QubnamsFDFVFQLWE3442-92-54 13:52:00 Test Item Value Reference Range Interpretation Comments Calcium Lvl (test code = Calcium Lvl) 10.1 8.5-10.5 N [facility] [place]JngjflvEAGIYVDDU1169-42-07 13:52:00 Test Item Value Reference Range Interpretation Comments Chloride Lvl (test code = Chloride Lvl) 92 95-109 L [facility] [place]ervilleRmucejpDXCBNVQFP8007-77-63 13:52:00 Test Item Value Reference Range Interpretation Comments CO2 (test code = CO2) 30 24-32 N [facility] [place]ervilleUxurvjaSJWUMGVFK1377-69-65 13:52:00 Test Item Value Reference Range Interpretation Comments Potassium Lvl (test code = Potassium 3.5 3.5-5.1 N Lvl) [facility] [place]ervilleUioxvfkHHCTYQDSL8202-74-81 13:52:00 Test Item Value Reference Range Interpretation Comments Sodium Lvl (test code = Sodium Lvl) 133 135-145 L [facility] [place]ervilleUynjfqlLCGNWBBFQ0755-63-59 13:52:00 Test Item Value Reference Range Interpretation Comments Creatinine Lvl (test code = Creatinine 1.3 0.5-1.4 N Lvl) [facility]ervilleWhobrmuVYAFMOYGR9584-54-32 13:52:00 Test Item Value Reference Range Interpretation Comments Glucose Lvl (test code = Glucose Lvl) 383 70-99 H [facility] [place]ervilleKnossgiPGMQBLFCQ6632-50-74 13:52:00 Test Item Value Reference Range Interpretation Comments BUN (test code = BUN) 17 7-22 N [facility] [place]ervilleDrawsuzJGEIEVKFK1129-83-99 13:52:00 Test Item Value Reference Range Interpretation Comments AGAP (test code = AGAP) 14.5 10.0-20.0 N [facility]GhyvxqvHEFTFWZKMC3779-55-30 13:52:00 Test Item Value Reference Range Interpretation Comments MPV (test code = MPV) 12.0 7.4-10.4 H [facility] HospitalReuchljRKSLBSXFRO3875-92-26 13:52:00 Test Item Value Reference Range Interpretation Comments Platelet (test code = Platelet) 226 133-450 N [facility] HospitalLbolnhkXGWNQZEQJC3873-74-03 13:52:00 Test Item Value Reference Range Interpretation Comments MCHC (test code = MCHC) 33.7 32.0-36.0 N [facility] HospitalWlsujlpEODGINCTXU1974-06-49 13:52:00 Test Item Value Reference Range Interpretation Comments MCH (test code = MCH) 28.5 pg 27.0-31.0 N [facility] HospitalSombxzvKGJSQXPDYI5971-62-16 13:52:00 Test Item Value Reference Range Interpretation Comments RDW (test code = RDW) 15.1 11.5-14.5 H [facility] HospitalDnyjaosYECAKTWXSP8792-93-81 13:52:00 Test Item Value Reference Range Interpretation Comments MCV (test code = MCV) 84.6 81.0-99.0 N [facility] HospitalFxxkoaaASHXRLLVEJ7503-40-46 13:52:00 Test Item Value Reference Range Interpretation Comments Hct (test code = Hct) 36.4 36.0-48.0 N [facility] HospitalXvvxovbOAZCZSGHXP6711-17-92 13:52:00 Test Item Value Reference Range Interpretation Comments Hgb (test code = Hgb) 12.3 12.0-16.0 N [facility] HospitalSnoyasqRTOSPSMOMB7596-16-61 13:52:00 Test Item Value Reference Range Interpretation Comments RBC (test code = RBC) 4.30 4.20-5.40 N [facility] HospitalVeoubrnVASQTOJASJ8757-64-76 13:52:00 Test Item Value Reference Range Interpretation Comments WBC (test code = WBC) 11.7 3.7-10.4 H [facility] HospitalHlydiohCWCCBFFZUU0361-97-03 13:52:00 Test Item Value Reference Range Interpretation Comments Monocytes (test code = Monocytes) 2.9 2.0-12.0 N [facility] HospitalHzjkoebVPTVEXWRTY8321-13-14 13:52:00 Test Item Value Reference Range Interpretation Comments Eosinophils (test code = 0.2 See_Comment N [A utomated message] The Eosinophils) system which ge nerated this result tra nsmitted reference range : <=4.0. The reference r leo was not used to int erpret this result as normal/abnormal . [facility] HospitalAcxcdexUZKEPAZQPE7522-61-35 13:52:00 Test Item Value Reference Range Interpretation Comments Basophils (test code = 0.0 See_Comment N [Aut omated message] The Basophils) system which ge nerated this result tra nsmitted reference range : <=1.0. The reference r leo was not used to int erpret this result as normal/abnormal . [facility] HospitalLdynzokEEAUIMMHTL7409-25-25 13:52:00 Test Item Value Reference Range Interpretation Comments Eosinophils # (test code 0.0 See_Comment N [A utomated message] The = Eosinophils #) system whic h generated this result tra nsmitted reference range : <=0.5. The reference r leo was not used to int erpret this result as normal/abnormal . [facility] HospitalPqnpzjdDIOFKUYMVW6992-27-06 13:52:00 Test Item Value Reference Range Interpretation Comments Monocytes # (test code 0.3 See_Comment N [Aut omated message] The = Monocytes #) system which generated this result tra nsmitted reference range : <=0.8. The reference r leo was not used to int erpret this result as normal/abnormal . [facility] HospitalEhnzkdaAVYXEWINGH5320-12-89 13:52:00 Test Item Value Reference Range Interpretation Comments Segs (test code = Segs) 92.0 45.0-75.0 H [facility] HospitalZvkurcwQLNHCCHVAC6376-05-69 13:52:00 Test Item Value Reference Range Interpretation Comments Lymphocytes (test code = Lymphocytes) 4.9 20.0-40.0 L [facility] HospitalZaqpekfNWWQQYHLCQ4063-89-24 13:52:00 Test Item Value Reference Range Interpretation Comments Spherocyte (test code = Rare A Spherocyte) *ABN*(09/18/2011 08:52:00) [facility] HospitalYssigurQDJYJFTDUI2686-11-80 13:52:00 Test Item Value Reference Range Interpretation Comments Large Plt (test code = Slight *ABN*(09/18/2011 A Large Plt) 08:52:00) [facility] HospitalOpxfmotWCIVONJOAD6736-77-33 13:52:00 Test Item Value Reference Range Interpretation Comments Microcyte (test code = 1+ *ABN*(09/18/2011 A Microcyte) 08:52:00) [facility] HospitalIbrlolnWYBPLSSUBY2475-38-97 13:52:00 Test Item Value Reference Range Interpretation Comments Schistocyte (test code = Schistocyte) Rare [facility] HospitalSdvcdcdDATPBNWPQE9473-29-65 13:52:00 Test Item Value Reference Range Interpretation Comments Macrocyte (test code = 1+ *ABN*(09/18/2011 A Macrocyte) 08:52:00) [facility] HospitalSkeerfqYPWIVLCZHO9152-12-62 13:52:00 Test Item Value Reference Range Interpretation Comments Lymphocytes # (test code = Lymphocytes 0.6 1.0-5.5 L #) [facility] HospitalUdtbmpuBBMYPGAVLQ6434-60-39 13:52:00 Test Item Value Reference Range Interpretation Comments Segs-Bands # (test code = Segs-Bands #) 10.8 1.5-8.1 H [facility] HospitalAlcuxzpRFOIRNNPGN5096-12-04 13:52:00 Test Item Value Reference Range Interpretation Comments Basophils # (test code 0.0 See_Comment N [Aut omated message] The = Basophils #) system which generated this result tra nsmitted reference range : <=0.2. The reference r leo was not used to int erpret this result as normal/abnormal . [facility]jzhhxkXDVKWPJGRD0998-44-21 13:52:00 Test Item Value Reference Range Interpretation Comments Anisocyte (test code = 1+ *ABN*(09/18/2011 A Anisocyte) 08:52:00) [facility] ResourcesDrwsoqcXSSUBUGGDU0194-78-83 13:52:00 Test Item Value Reference Range Interpretation Comments CDC-HIV 1/2 Ab (test Negative *NA*(09/18/2011 code = CDC-HIV 1/2 08:52:00) Ab) [facility]CqahulhPLITQKHYG2421-11-97 13:52:00 Test Item Value Reference Range Interpretation Comments pO2 Roberth (test code = pO2 Roberth) 24 20-49 N [facility]ervilleRyahhfmBELRAJCBH9019-39-51 13:52:00 Test Item Value Reference Range Interpretation Comments HCO3 Roberth (test code = HCO3 Roberth) 32.0 22.0-26.0 H [facility] [place]ervilleJnbabdoRVPOPXACD2432-38-49 13:52:00 Test Item Value Reference Range Interpretation Comments pCO2 Roberth (test code = pCO2 Roberth) 44 38-52 N [facility] [place]CogeqlrCOXOERIHK7853-05-70 13:52:00 Test Item Value Reference Range Interpretation Comments BE Roberth (test code = 7 See_Comment H [Automa rohit message] The BE Roberth) system which ge nerated this result transmit rohit reference range : <=2. The reference range was not used to interpr et this result as reji l/abnormal. [facility]ervilleSriwnbiCXKZLBJVG3546-83-34 13:52:00 Test Item Value Reference Range Interpretation Comments O2 Sat Roberth (test code = O2 Sat Roberth) 48.0 40.0-70.0 N [facility]EzqszfhYAPAJHUGO6711-06-42 13:52:00 Test Item Value Reference Range Interpretation Comments Temp Roberth (test code = Temp Roberth) 37.0 [facility] [place]ervilleCmxzrvyVFXGXVENU0666-21-41 13:52:00 Test Item Value Reference Range Interpretation Comments pH Roberth (test code = pH Roberth) 7.47 7.28-7.42 H [facility]ervilleKbsnphjWNEJFPEJR9303-99-93 13:52:00 Test Item Value Reference Range Interpretation Comments Calcium Lvl (test code = Calcium Lvl) 10.1 8.5-10.5 N [facility] [place]ervilleVkbrhfuXSNORXTXO3920-70-78 13:52:00 Test Item Value Reference Range Interpretation Comments Chloride Lvl (test code = Chloride Lvl) 92 95-109 L [facility] [place]ervilleMtibiyuJXSGWKKGE6734-92-63 13:52:00 Test Item Value Reference Range Interpretation Comments CO2 (test code = CO2) 30 24-32 N [facility] [place]ervilleDbtygynRWDMYOBBR2019-91-27 13:52:00 Test Item Value Reference Range Interpretation Comments Potassium Lvl (test code = Potassium 3.5 3.5-5.1 N Lvl) [facility]ervilleTygmcbeBDEANABQD5741-64-43 13:52:00 Test Item Value Reference Range Interpretation Comments Sodium Lvl (test code = Sodium Lvl) 133 135-145 L [facility] [place]ervilleGtvnvwsXAFPLHDUG4014-90-90 13:52:00 Test Item Value Reference Range Interpretation Comments Creatinine Lvl (test code = Creatinine 1.3 0.5-1.4 N Lvl) [facility] [place]ervilleHuhsbwdUCZQJGDUF1180-50-11 13:52:00 Test Item Value Reference Range Interpretation Comments Glucose Lvl (test code = Glucose Lvl) 383 70-99 H [facility] [place]ervilleArotyifENBYQQKMI3259-35-18 13:52:00 Test Item Value Reference Range Interpretation Comments BUN (test code = BUN) 17 7-22 N [facility]ervilleQoprspgHQFVJPPVV6885-85-52 13:52:00 Test Item Value Reference Range Interpretation Comments AGAP (test code = AGAP) 14.5 10.0-20.0 N [facility] HospitalDvxuuqzAXQSKMNDYK3259-97-14 13:52:00 Test Item Value Reference Range Interpretation Comments MPV (test code = MPV) 12.0 7.4-10.4 H [facility] HospitalIfpaaahADEQRWQGCP2373-19-30 13:52:00 Test Item Value Reference Range Interpretation Comments Platelet (test code = Platelet) 226 133-450 N [facility] HospitalBiefbvwPVVYBTBYGY4989-10-26 13:52:00 Test Item Value Reference Range Interpretation Comments MCHC (test code = MCHC) 33.7 32.0-36.0 N [facility] HospitalWobzsjxWWPWWXRVHO4189-31-36 13:52:00 Test Item Value Reference Range Interpretation Comments MCH (test code = MCH) 28.5 pg 27.0-31.0 N [facility] HospitalChlsjdkWNZGEJPISD8061-93-50 13:52:00 Test Item Value Reference Range Interpretation Comments RDW (test code = RDW) 15.1 11.5-14.5 H [facility] HospitalNzdrwzxPZJRNWJTWX0393-37-00 13:52:00 Test Item Value Reference Range Interpretation Comments MCV (test code = MCV) 84.6 81.0-99.0 N [facility] HospitalVrjoaayYJQWOWMCRN7920-14-98 13:52:00 Test Item Value Reference Range Interpretation Comments Hct (test code = Hct) 36.4 36.0-48.0 N [facility] HospitalRynnjxfIZWHJFCRRN0562-56-99 13:52:00 Test Item Value Reference Range Interpretation Comments Hgb (test code = Hgb) 12.3 12.0-16.0 N [facility] HospitalDqrofvnOEVSPVHQZY7744-61-26 13:52:00 Test Item Value Reference Range Interpretation Comments RBC (test code = RBC) 4.30 4.20-5.40 N [facility] HospitalFzknfjeCXCCNTIBMC8999-61-63 13:52:00 Test Item Value Reference Range Interpretation Comments WBC (test code = WBC) 11.7 3.7-10.4 H [facility] HospitalGucwadePHRDWVOUAZ3033-33-34 13:52:00 Test Item Value Reference Range Interpretation Comments Monocytes (test code = Monocytes) 2.9 2.0-12.0 N [facility] HospitalVojpslkGSIJLIPSLR6689-20-57 13:52:00 Test Item Value Reference Range Interpretation Comments Eosinophils (test code = 0.2 See_Comment N [A utomated message] The Eosinophils) system which ge nerated this result tra nsmitted reference range : <=4.0. The reference r leo was not used to int erpret this result as normal/abnormal . [facility] HospitalDvtlwayPBQWGYIBGA9687-61-86 13:52:00 Test Item Value Reference Range Interpretation Comments Basophils (test code = 0.0 See_Comment N [Aut omated message] The Basophils) system which ge nerated this result tra nsmitted reference range : <=1.0. The reference r leo was not used to int erpret this result as normal/abnormal . [facility] HospitalIrezqryDGVUDAKLBI5870-61-45 13:52:00 Test Item Value Reference Range Interpretation Comments Eosinophils # (test code 0.0 See_Comment N [A utomated message] The = Eosinophils #) system whic h generated this result tra nsmitted reference range : <=0.5. The reference r leo was not used to int erpret this result as normal/abnormal . [facility] HospitalVdilldqKGFGUTIWQF5199-10-36 13:52:00 Test Item Value Reference Range Interpretation Comments Monocytes # (test code 0.3 See_Comment N [Aut omated message] The = Monocytes #) system which generated this result tra nsmitted reference range : <=0.8. The reference r leo was not used to int erpret this result as normal/abnormal . [facility] HospitalUtzhlnfJRHHXVSUWK4856-65-85 13:52:00 Test Item Value Reference Range Interpretation Comments Segs (test code = Segs) 92.0 45.0-75.0 H [facility] HospitalBkdiaqkBMYGAECTCC9508-27-71 13:52:00 Test Item Value Reference Range Interpretation Comments Lymphocytes (test code = Lymphocytes) 4.9 20.0-40.0 L [facility] HospitalWfvnczdNBNIOCEAKX5974-35-23 13:52:00 Test Item Value Reference Range Interpretation Comments Spherocyte (test code = Rare A Spherocyte) *ABN*(09/18/2011 08:52:00) [facility] HospitalLgafwjuURXCMRAYDS4372-92-91 13:52:00 Test Item Value Reference Range Interpretation Comments Large Plt (test code = Slight *ABN*(09/18/2011 A Large Plt) 08:52:00) [facility] HospitalSpzupexEBNODGFVFF2854-64-27 13:52:00 Test Item Value Reference Range Interpretation Comments Microcyte (test code = 1+ *ABN*(09/18/2011 A Microcyte) 08:52:00) [facility] HospitalXwllkrjGUMJPCOYPJ7676-15-80 13:52:00 Test Item Value Reference Range Interpretation Comments Schistocyte (test code = Schistocyte) Rare [facility] HospitalWmozxasNCSFOOFWIP1322-26-34 13:52:00 Test Item Value Reference Range Interpretation Comments Macrocyte (test code = 1+ *ABN*(09/18/2011 A Macrocyte) 08:52:00) [facility] HospitalBwgooetKWBFPJSXSR5652-08-28 13:52:00 Test Item Value Reference Range Interpretation Comments Lymphocytes # (test code = Lymphocytes 0.6 1.0-5.5 L #) [facility] HospitalDcbygdiNWACSCDZLT9466-01-40 13:52:00 Test Item Value Reference Range Interpretation Comments Segs-Bands # (test code = Segs-Bands #) 10.8 1.5-8.1 H [facility]DxjhrueRCJCLPNTMP1102-10-34 13:52:00 Test Item Value Reference Range Interpretation Comments Basophils # (test code 0.0 See_Comment N [Aut omated message] The = Basophils #) system which generated this result tra nsmitted reference range : <=0.2. The reference r leo was not used to int erpret this result as normal/abnormal . [facility]AaetxtgVCTLADBIFO8544-73-48 13:52:00 Test Item Value Reference Range Interpretation Comments Anisocyte (test code = 1+ *ABN*(09/18/2011 A Anisocyte) 08:52:00) [facility] ResourcesXvbswrrHIKPMSBBEN4742-64-14 13:52:00 Test Item Value Reference Range Interpretation Comments CDC-HIV 1/2 Ab (test Negative *NA*(09/18/2011 code = CDC-HIV 1/2 08:52:00) Ab) [facility]ervilleYttjdvaNYYTREIFC3462-39-95 13:52:00 Test Item Value Reference Range Interpretation Comments pO2 Roberth (test code = pO2 Roberth) 24 20-49 N [facility]ervilleRupbqctAWPYBAXYP7330-31-38 13:52:00 Test Item Value Reference Range Interpretation Comments HCO3 Roberth (test code = HCO3 Roberth) 32.0 22.0-26.0 H [facility]ervilleHsduogwVMFYQHEDK4697-48-16 13:52:00 Test Item Value Reference Range Interpretation Comments pCO2 Roberth (test code = pCO2 Roberth) 44 38-52 N [facility] [place]ervilleSwvvxjiRWJNFQCGA8922-56-24 13:52:00 Test Item Value Reference Range Interpretation Comments BE Roberth (test code = 7 See_Comment H [Automa rohit message] The BE Roberth) system which ge nerated this result transmit rohit reference range : <=2. The reference range was not used to interpr et this result as reji l/abnormal. [facility]ervilleVixmheeXVUNCBGHR2565-65-95 13:52:00 Test Item Value Reference Range Interpretation Comments O2 Sat Roberth (test code = O2 Sat Roberth) 48.0 40.0-70.0 N [facility]MqcszklLYYFGICNV7115-47-76 13:52:00 Test Item Value Reference Range Interpretation Comments Temp Roberth (test code = Temp Roberth) 37.0 [facility]ervilleNxykutsUOWGJIFRI0955-67-37 13:52:00 Test Item Value Reference Range Interpretation Comments pH Roberth (test code = pH Roberth) 7.47 7.28-7.42 H [facility]NsmggqnDFKNGNDVY7667-19-44 13:52:00 Test Item Value Reference Range Interpretation Comments Calcium Lvl (test code = Calcium Lvl) 10.1 8.5-10.5 N [facility]ervilleQzihvmeHFFJEEFUL3941-65-95 13:52:00 Test Item Value Reference Range Interpretation Comments Chloride Lvl (test code = Chloride Lvl) 92 95-109 L [facility]ervilleHbukhicRSAIPOYEX4008-82-39 13:52:00 Test Item Value Reference Range Interpretation Comments CO2 (test code = CO2) 30 24-32 N [facility]ervilleDcmmqdxZCKBBIMKO7577-22-44 13:52:00 Test Item Value Reference Range Interpretation Comments Potassium Lvl (test code = Potassium 3.5 3.5-5.1 N Lvl) [facility]ervilleImkvtmzGYLGILMUB6687-08-95 13:52:00 Test Item Value Reference Range Interpretation Comments Sodium Lvl (test code = Sodium Lvl) 133 135-145 L [facility]ervilleChqqacyGTWOJXTTT3630-23-65 13:52:00 Test Item Value Reference Range Interpretation Comments Creatinine Lvl (test code = Creatinine 1.3 0.5-1.4 N Lvl) [facility]ervilleAmjpczcWKWUQFTZU6492-63-18 13:52:00 Test Item Value Reference Range Interpretation Comments Glucose Lvl (test code = Glucose Lvl) 383 70-99 H [facility]ervilleBxfbmmaXPPMRBEUB4738-86-01 13:52:00 Test Item Value Reference Range Interpretation Comments BUN (test code = BUN) 17 7-22 N [facility]ervilleEwcamupUDCGYAMJQ4465-00-29 13:52:00 Test Item Value Reference Range Interpretation Comments AGAP (test code = AGAP) 14.5 10.0-20.0 N [facility] HospitalPrclyzmIYAPFOPRXD8340-95-63 13:52:00 Test Item Value Reference Range Interpretation Comments MPV (test code = MPV) 12.0 7.4-10.4 H [facility] HospitalFpgxbemLNQVQTUXCR9667-80-33 13:52:00 Test Item Value Reference Range Interpretation Comments Platelet (test code = Platelet) 226 133-450 N [facility] HospitalUpxjjbgMQPZBHWTGW7529-03-20 13:52:00 Test Item Value Reference Range Interpretation Comments MCHC (test code = MCHC) 33.7 32.0-36.0 N [facility] HospitalQduufbsMWKXPFYILI7292-97-42 13:52:00 Test Item Value Reference Range Interpretation Comments MCH (test code = MCH) 28.5 pg 27.0-31.0 N [facility] HospitalMgmbiazTULDVUQQBY8539-17-95 13:52:00 Test Item Value Reference Range Interpretation Comments RDW (test code = RDW) 15.1 11.5-14.5 H [facility] HospitalUuuwzvpCADYUUDAWU8466-87-36 13:52:00 Test Item Value Reference Range Interpretation Comments MCV (test code = MCV) 84.6 81.0-99.0 N [facility] HospitalXedvshdKDMOFBOWUB1589-35-10 13:52:00 Test Item Value Reference Range Interpretation Comments Hct (test code = Hct) 36.4 36.0-48.0 N [facility] HospitalWinauyiVLAEGJYZGL8429-39-60 13:52:00 Test Item Value Reference Range Interpretation Comments Hgb (test code = Hgb) 12.3 12.0-16.0 N [facility] HospitalDljtlyeIMPBMJPBSP5161-90-47 13:52:00 Test Item Value Reference Range Interpretation Comments RBC (test code = RBC) 4.30 4.20-5.40 N [facility] HospitalRoxhqcsHAYEBRPRRV3817-18-05 13:52:00 Test Item Value Reference Range Interpretation Comments WBC (test code = WBC) 11.7 3.7-10.4 H [facility] HospitalMghfzgbPAWLRDZLGT6255-73-66 13:52:00 Test Item Value Reference Range Interpretation Comments Monocytes (test code = Monocytes) 2.9 2.0-12.0 N [facility] HospitalMtdggdrYHGQCJZJFJ7344-76-47 13:52:00 Test Item Value Reference Range Interpretation Comments Eosinophils (test code = 0.2 See_Comment N [A utomated message] The Eosinophils) system which ge nerated this result tra nsmitted reference range : <=4.0. The reference r leo was not used to int erpret this result as normal/abnormal . [facility] HospitalIsismqeATODQNSBGX2117-29-09 13:52:00 Test Item Value Reference Range Interpretation Comments Basophils (test code = 0.0 See_Comment N [Aut omated message] The Basophils) system which ge nerated this result tra nsmitted reference range : <=1.0. The reference r leo was not used to int erpret this result as normal/abnormal . [facility] HospitalYmtinxjNOLAWGXBKB3441-91-10 13:52:00 Test Item Value Reference Range Interpretation Comments Eosinophils # (test code 0.0 See_Comment N [A utomated message] The = Eosinophils #) system whic h generated this result tra nsmitted reference range : <=0.5. The reference r leo was not used to int erpret this result as normal/abnormal . [facility] HospitalLsoiuqlVGALHTODWX8993-16-84 13:52:00 Test Item Value Reference Range Interpretation Comments Monocytes # (test code 0.3 See_Comment N [Aut omated message] The = Monocytes #) system which generated this result tra nsmitted reference range : <=0.8. The reference r leo was not used to int erpret this result as normal/abnormal . [facility] HospitalRpqqdomMPKBIXUZJQ0053-66-85 13:52:00 Test Item Value Reference Range Interpretation Comments Segs (test code = Segs) 92.0 45.0-75.0 H [facility] HospitalAuhfunwOYMLTSGRMR9352-37-15 13:52:00 Test Item Value Reference Range Interpretation Comments Lymphocytes (test code = Lymphocytes) 4.9 20.0-40.0 L [facility] HospitalVqpihtcMBNWZAUTHX6591-54-72 13:52:00 Test Item Value Reference Range Interpretation Comments Spherocyte (test code = Rare A Spherocyte) *ABN*(09/18/2011 08:52:00) [facility] HospitalRnalzjuCRXGVJNJBO0063-26-13 13:52:00 Test Item Value Reference Range Interpretation Comments Large Plt (test code = Slight *ABN*(09/18/2011 A Large Plt) 08:52:00) [facility] HospitalYzgfistAEGYIUKLMH5230-65-31 13:52:00 Test Item Value Reference Range Interpretation Comments Microcyte (test code = 1+ *ABN*(09/18/2011 A Microcyte) 08:52:00) [facility] HospitalOeaevhlWUYSVEDEUE7495-38-16 13:52:00 Test Item Value Reference Range Interpretation Comments Schistocyte (test code = Schistocyte) Rare [facility] HospitalQwfrjiiDSQWATUYBM6179-41-97 13:52:00 Test Item Value Reference Range Interpretation Comments Macrocyte (test code = 1+ *ABN*(09/18/2011 A Macrocyte) 08:52:00) [facility] HospitalNpkgaprCQJSECGMDT9928-50-30 13:52:00 Test Item Value Reference Range Interpretation Comments Lymphocytes # (test code = Lymphocytes 0.6 1.0-5.5 L #) [facility] HospitalWhsjxpsVGAZZYVCHN2323-56-19 13:52:00 Test Item Value Reference Range Interpretation Comments Segs-Bands # (test code = Segs-Bands #) 10.8 1.5-8.1 H [facility] HospitalSekrszdTPYFBVVZJC9119-24-30 13:52:00 Test Item Value Reference Range Interpretation Comments Basophils # (test code 0.0 See_Comment N [Aut omated message] The = Basophils #) system which generated this result tra nsmitted reference range : <=0.2. The reference r leo was not used to int erpret this result as normal/abnormal . [facility] HospitalRwojoiaHWJJCGZACJ3537-73-26 13:52:00 Test Item Value Reference Range Interpretation Comments Anisocyte (test code = 1+ *ABN*(09/18/2011 A Anisocyte) 08:52:00) [facility] ResourcesBxdydmyJMSSLUAQAX2668-18-35 13:52:00 Test Item Value Reference Range Interpretation Comments CDC-HIV 1/2 Ab (test Negative *NA*(09/18/2011 code = CDC-HIV 1/2 08:52:00) Ab) [facility]CsudkdoFVHIFDFCL4184-26-41 13:52:00 Test Item Value Reference Range Interpretation Comments pO2 Roberth (test code = pO2 Roberth) 24 20-49 N [facility] [place]FwhvbbfYTEJNBLQI9268-10-46 13:52:00 Test Item Value Reference Range Interpretation Comments HCO3 Roberth (test code = HCO3 Roberth) 32.0 22.0-26.0 H [facility] [place]XtkhsdzWHZCOLUXU1771-80-72 13:52:00 Test Item Value Reference Range Interpretation Comments pCO2 Roberth (test code = pCO2 Roberth) 44 38-52 N [facility]ervilleWqtohaeNUPLQVHJQ1909-36-38 13:52:00 Test Item Value Reference Range Interpretation Comments BE Roberth (test code = 7 See_Comment H [Automa rohit message] The BE Roberth) system which ge nerated this result transmit rohit reference range : <=2. The reference range was not used to interpr et this result as reji l/abnormal. [facility]ervilleVckaebwFZKQVBHRX4338-08-47 13:52:00 Test Item Value Reference Range Interpretation Comments O2 Sat Roberth (test code = O2 Sat Roberth) 48.0 40.0-70.0 N [facility] [place]ervilleIjkiuhwUKRSILARH3805-74-81 13:52:00 Test Item Value Reference Range Interpretation Comments Temp Roberth (test code = Temp Roberth) 37.0 [facility] [place]ervilleMecxoxaMILYCQBHK1368-67-29 13:52:00 Test Item Value Reference Range Interpretation Comments pH Roberth (test code = pH Roberth) 7.47 7.28-7.42 H [facility]KjbszbjQARSQTXZP9465-07-09 13:52:00 Test Item Value Reference Range Interpretation Comments Calcium Lvl (test code = Calcium Lvl) 10.1 8.5-10.5 N [facility]ervilleKowubdnQXMDTUWHO0773-76-26 13:52:00 Test Item Value Reference Range Interpretation Comments Chloride Lvl (test code = Chloride Lvl) 92 95-109 L [facility] [place]WbpjybnBDMRIPDAM5984-23-61 13:52:00 Test Item Value Reference Range Interpretation Comments CO2 (test code = CO2) 30 24-32 N [facility] [place]ervilleXpnegzpUSTUBKWYT4148-86-17 13:52:00 Test Item Value Reference Range Interpretation Comments Potassium Lvl (test code = Potassium 3.5 3.5-5.1 N Lvl) [facility]ervilleOolsulhGAIOPCIQX8724-73-73 13:52:00 Test Item Value Reference Range Interpretation Comments Sodium Lvl (test code = Sodium Lvl) 133 135-145 L [facility]MsdvnyhWLWBBGZAT5666-20-41 13:52:00 Test Item Value Reference Range Interpretation Comments Creatinine Lvl (test code = Creatinine 1.3 0.5-1.4 N Lvl) [facility] [place]WqsxaaaVVUPYLAUN5181-34-60 13:52:00 Test Item Value Reference Range Interpretation Comments Glucose Lvl (test code = Glucose Lvl) 383 70-99 H [facility] [place]CfhcgucQKMPXMCZD7188-41-34 13:52:00 Test Item Value Reference Range Interpretation Comments BUN (test code = BUN) 17 7-22 N [facility] [place]PydphvyHQXDXRJKA5721-22-32 13:52:00 Test Item Value Reference Range Interpretation Comments AGAP (test code = AGAP) 14.5 10.0-20.0 N [facility]dxmzcEHVKDVHQPD7094-35-57 13:52:00 Test Item Value Reference Range Interpretation Comments MPV (test code = MPV) 12.0 7.4-10.4 H [facility]NhyhpbbJJEJWRAYQS4227-44-20 13:52:00 Test Item Value Reference Range Interpretation Comments Platelet (test code = Platelet) 226 133-450 N [facility] HospitalBbgetynQUHYVLFZAP7507-35-45 13:52:00 Test Item Value Reference Range Interpretation Comments MCHC (test code = MCHC) 33.7 32.0-36.0 N [facility] HospitalNutqczyYEVJJTAUZQ3426-30-04 13:52:00 Test Item Value Reference Range Interpretation Comments MCH (test code = MCH) 28.5 pg 27.0-31.0 N [facility] HospitalLqskepmZONQRDMLZX6781-59-68 13:52:00 Test Item Value Reference Range Interpretation Comments RDW (test code = RDW) 15.1 11.5-14.5 H [facility] HospitalZrluggyYGDKXLUXCB3887-19-49 13:52:00 Test Item Value Reference Range Interpretation Comments MCV (test code = MCV) 84.6 81.0-99.0 N [facility] HospitalFhinhylMPYYRXOURT9319-28-08 13:52:00 Test Item Value Reference Range Interpretation Comments Hct (test code = Hct) 36.4 36.0-48.0 N [facility] HospitalXszahpnIKCOZQHLQE1996-25-23 13:52:00 Test Item Value Reference Range Interpretation Comments Hgb (test code = Hgb) 12.3 12.0-16.0 N [facility] HospitalJfbotjrEGVDOJKIXD1045-19-07 13:52:00 Test Item Value Reference Range Interpretation Comments RBC (test code = RBC) 4.30 4.20-5.40 N [facility] HospitalXxccdoiWSBDOYGXHF6722-57-24 13:52:00 Test Item Value Reference Range Interpretation Comments WBC (test code = WBC) 11.7 3.7-10.4 H [facility] HospitalLomukqyBKSBSKGHSM5640-59-56 13:52:00 Test Item Value Reference Range Interpretation Comments Monocytes (test code = Monocytes) 2.9 2.0-12.0 N [facility] HospitalIonjtmsTXXZXPJOBL6993-47-39 13:52:00 Test Item Value Reference Range Interpretation Comments Eosinophils (test code = 0.2 See_Comment N [A utomated message] The Eosinophils) system which ge nerated this result tra nsmitted reference range : <=4.0. The reference r leo was not used to int erpret this result as normal/abnormal . [facility] HospitalQyuzsaxEJIJUWBCOM6572-94-57 13:52:00 Test Item Value Reference Range Interpretation Comments Basophils (test code = 0.0 See_Comment N [Aut omated message] The Basophils) system which ge nerated this result tra nsmitted reference range : <=1.0. The reference r leo was not used to int erpret this result as normal/abnormal . [facility] HospitalFzrhdknRAUIHVXEGN6905-16-42 13:52:00 Test Item Value Reference Range Interpretation Comments Eosinophils # (test code 0.0 See_Comment N [A utomated message] The = Eosinophils #) system whic h generated this result tra nsmitted reference range : <=0.5. The reference r leo was not used to int erpret this result as normal/abnormal . [facility] HospitalZtwicpmQWQCSVTSXM7190-49-74 13:52:00 Test Item Value Reference Range Interpretation Comments Monocytes # (test code 0.3 See_Comment N [Aut omated message] The = Monocytes #) system which generated this result tra nsmitted reference range : <=0.8. The reference r leo was not used to int erpret this result as normal/abnormal . [facility] HospitalRpvkdcsIDCEZDSOKB9782-12-93 13:52:00 Test Item Value Reference Range Interpretation Comments Segs (test code = Segs) 92.0 45.0-75.0 H [facility] HospitalTauoxiwWTIPEQJKKI1810-82-35 13:52:00 Test Item Value Reference Range Interpretation Comments Lymphocytes (test code = Lymphocytes) 4.9 20.0-40.0 L [facility] HospitalXvqzyhrZNULRITPSR3168-98-07 13:52:00 Test Item Value Reference Range Interpretation Comments Spherocyte (test code = Rare A Spherocyte) *ABN*(09/18/2011 08:52:00) [facility] HospitalPvdvbxfIBTCWPJRBV3271-77-42 13:52:00 Test Item Value Reference Range Interpretation Comments Large Plt (test code = Slight *ABN*(09/18/2011 A Large Plt) 08:52:00) [facility] HospitalXhspevjKJMGIHSQWU3545-83-96 13:52:00 Test Item Value Reference Range Interpretation Comments Microcyte (test code = 1+ *ABN*(09/18/2011 A Microcyte) 08:52:00) [facility] HospitalOgomkpgKJBBEKMYLH1253-30-26 13:52:00 Test Item Value Reference Range Interpretation Comments Schistocyte (test code = Schistocyte) Rare [facility] HospitalVamonvdAZBKCKXLAU7974-42-63 13:52:00 Test Item Value Reference Range Interpretation Comments Macrocyte (test code = 1+ *ABN*(09/18/2011 A Macrocyte) 08:52:00) [facility] HospitalWntcydaMOLIGNOMNC5630-35-03 13:52:00 Test Item Value Reference Range Interpretation Comments Lymphocytes # (test code = Lymphocytes 0.6 1.0-5.5 L #) [facility] HospitalTyugapjYNECRSXJMA1550-69-63 13:52:00 Test Item Value Reference Range Interpretation Comments Segs-Bands # (test code = Segs-Bands #) 10.8 1.5-8.1 H [facility] HospitalSwkuousWKFKJSLUSL6260-62-23 13:52:00 Test Item Value Reference Range Interpretation Comments Basophils # (test code 0.0 See_Comment N [Aut omated message] The = Basophils #) system which generated this result tra nsmitted reference range : <=0.2. The reference r leo was not used to int erpret this result as normal/abnormal . [facility] HospitalIiteypzXUDEFANUSR0036-15-62 13:52:00 Test Item Value Reference Range Interpretation Comments Anisocyte (test code = 1+ *ABN*(09/18/2011 A Anisocyte) 08:52:00) [facility] ResourcesAwzuoxgOZBQQGKZKO3657-99-02 13:52:00 Test Item Value Reference Range Interpretation Comments CDC-HIV 1/2 Ab (test Negative *NA*(09/18/2011 code = CDC-HIV 1/2 08:52:00) Ab) [facility]DhbfqdgSAPATVUCU4722-59-83 13:52:00 Test Item Value Reference Range Interpretation Comments pO2 Roberth (test code = pO2 Roberth) 24 20-49 N [facility] [place]JjueaqvVLIRCPBBL0731-39-43 13:52:00 Test Item Value Reference Range Interpretation Comments HCO3 Roberth (test code = HCO3 Roberth) 32.0 22.0-26.0 H [facility]ervilleGrfugdpJDLPXKONI8223-84-75 13:52:00 Test Item Value Reference Range Interpretation Comments pCO2 Roberth (test code = pCO2 Roberth) 44 38-52 N [facility] [place]OvhyeggZGKDHABJT2151-71-53 13:52:00 Test Item Value Reference Range Interpretation Comments BE Roberth (test code = 7 See_Comment H [Automa rohit message] The BE Roberth) system which ge nerated this result transmit rohit reference range : <=2. The reference range was not used to interpr et this result as reji l/abnormal. [facility]ImvlzdtDIWNXMOTH5490-85-46 13:52:00 Test Item Value Reference Range Interpretation Comments O2 Sat Roberth (test code = O2 Sat Roberth) 48.0 40.0-70.0 N [facility] [place]XapqwclRODERHNMO4388-72-51 13:52:00 Test Item Value Reference Range Interpretation Comments Temp Roberth (test code = Temp Roberth) 37.0 [facility]RgrcthcYFACPATLC6359-87-19 13:52:00 Test Item Value Reference Range Interpretation Comments pH Roberth (test code = pH Roberth) 7.47 7.28-7.42 H [facility] [place]SfxrlhdCFBYAPUTH4200-78-30 13:52:00 Test Item Value Reference Range Interpretation Comments Calcium Lvl (test code = Calcium Lvl) 10.1 8.5-10.5 N [facility]ervilleGkkiuqvHLHETLDTZ8203-54-39 13:52:00 Test Item Value Reference Range Interpretation Comments Chloride Lvl (test code = Chloride Lvl) 92 95-109 L [facility] [place]ervilleBopzornUXUVZJIQR4782-46-91 13:52:00 Test Item Value Reference Range Interpretation Comments CO2 (test code = CO2) 30 24-32 N [facility] [place]ervilleShzgahxIQSGGCBPF0029-79-04 13:52:00 Test Item Value Reference Range Interpretation Comments Potassium Lvl (test code = Potassium 3.5 3.5-5.1 N Lvl) [facility]ervilleTvoumbaDIXHMEYIZ2806-31-45 13:52:00 Test Item Value Reference Range Interpretation Comments Sodium Lvl (test code = Sodium Lvl) 133 135-145 L [facility] [place]VqnufsoVZSXUTCAQ7999-38-53 13:52:00 Test Item Value Reference Range Interpretation Comments Creatinine Lvl (test code = Creatinine 1.3 0.5-1.4 N Lvl) [facility]BeaqowbUWELBLMMT6012-23-30 13:52:00 Test Item Value Reference Range Interpretation Comments Glucose Lvl (test code = Glucose Lvl) 383 70-99 H [facility]ervilleKkcfldzMIDJHZLVG2315-10-37 13:52:00 Test Item Value Reference Range Interpretation Comments BUN (test code = BUN) 17 7-22 N [facility]ervilleVeylwjyAADXZGQPO9296-02-90 13:52:00 Test Item Value Reference Range Interpretation Comments AGAP (test code = AGAP) 14.5 10.0-20.0 N [facility] HospitalWokafobIHTHNLZYSG6828-69-67 13:52:00 Test Item Value Reference Range Interpretation Comments MPV (test code = MPV) 12.0 7.4-10.4 H [facility] HospitalXlykrypCLTQIJUXTB9589-07-04 13:52:00 Test Item Value Reference Range Interpretation Comments Platelet (test code = Platelet) 226 133-450 N [facility] HospitalVzmcqsqMRPXEYPSYC9157-32-35 13:52:00 Test Item Value Reference Range Interpretation Comments MCHC (test code = MCHC) 33.7 32.0-36.0 N [facility] HospitalHfqaexgASJHMTBFJO7343-83-34 13:52:00 Test Item Value Reference Range Interpretation Comments MCH (test code = MCH) 28.5 pg 27.0-31.0 N [facility] HospitalAlpazhbVOZLJRFUEZ1388-09-18 13:52:00 Test Item Value Reference Range Interpretation Comments RDW (test code = RDW) 15.1 11.5-14.5 H [facility] HospitalTsglaleGIUUWXGBWF2251-98-97 13:52:00 Test Item Value Reference Range Interpretation Comments MCV (test code = MCV) 84.6 81.0-99.0 N [facility] HospitalFucynpjCDQTVIJPDI0098-61-57 13:52:00 Test Item Value Reference Range Interpretation Comments Hct (test code = Hct) 36.4 36.0-48.0 N [facility] HospitalAbqlcbxGVLSESWOZM2243-32-68 13:52:00 Test Item Value Reference Range Interpretation Comments Hgb (test code = Hgb) 12.3 12.0-16.0 N [facility] HospitalHzsezzqXRISEAYDKX3736-96-66 13:52:00 Test Item Value Reference Range Interpretation Comments RBC (test code = RBC) 4.30 4.20-5.40 N [facility] HospitalEywxlajTFDHNOJFGU3077-52-52 13:52:00 Test Item Value Reference Range Interpretation Comments WBC (test code = WBC) 11.7 3.7-10.4 H [facility] HospitalBjdqtznWULXWFKUJJ8211-35-71 13:52:00 Test Item Value Reference Range Interpretation Comments Monocytes (test code = Monocytes) 2.9 2.0-12.0 N [address]03-30 13:52:00 Test Item Value Reference Range Interpretation Comments Eosinophils (test code = 0.2 See_Comment N [A utomated message] The Eosinophils) system which ge nerated this result tra nsmitted reference range : <=4.0. The reference r leo was not used to int erpret this result as normal/abnormal . [facility] HospitalOjzvxrtJWPESISEIP7883-73-51 13:52:00 Test Item Value Reference Range Interpretation Comments Basophils (test code = 0.0 See_Comment N [Aut omated message] The Basophils) system which ge nerated this result tra nsmitted reference range : <=1.0. The reference r leo was not used to int erpret this result as normal/abnormal . [facility] HospitalHdtrptfNWXOMSQTFV8812-04-80 13:52:00 Test Item Value Reference Range Interpretation Comments Eosinophils # (test code 0.0 See_Comment N [A utomated message] The = Eosinophils #) system wh h generated this result tra nsmitted reference range : <=0.5. The reference r leo was not used to int erpret this result as normal/abnormal . [facility] HospitalCogsxogMYWUASEWUP3037-46-27 13:52:00 Test Item Value Reference Range Interpretation Comments Monocytes # (test code 0.3 See_Comment N [Aut omated message] The = Monocytes #) system which generated this result tra nsmitted reference range : <=0.8. The reference r leo was not used to int erpret this result as normal/abnormal . [facility] HospitalNkdmogqDPTLLQOORE7458-13-03 13:52:00 Test Item Value Reference Range Interpretation Comments Segs (test code = Segs) 92.0 45.0-75.0 H [facility] HospitalKleinvkNOYQELPNZP1813-86-25 13:52:00 Test Item Value Reference Range Interpretation Comments Lymphocytes (test code = Lymphocytes) 4.9 20.0-40.0 L [facility] HospitalYfappkjIRCVJHJTRA5635-94-13 13:52:00 Test Item Value Reference Range Interpretation Comments Spherocyte (test code = Rare A Spherocyte) *ABN*(09/18/2011 08:52:00) [facility] HospitalTkkyvdlOPHUPAMONG7938-73-20 13:52:00 Test Item Value Reference Range Interpretation Comments Large Plt (test code = Slight *ABN*(09/18/2011 A Large Plt) 08:52:00) [facility] HospitalGdwtnupANLRECDSAH1640-74-28 13:52:00 Test Item Value Reference Range Interpretation Comments Microcyte (test code = 1+ *ABN*(09/18/2011 A Microcyte) 08:52:00) [facility] HospitalWoyseevUXIFDCGZEK6461-72-78 13:52:00 Test Item Value Reference Range Interpretation Comments Schistocyte (test code = Schistocyte) Rare [facility] HospitalTuocvmsQJSNPMMRAU5756-93-53 13:52:00 Test Item Value Reference Range Interpretation Comments Macrocyte (test code = 1+ *ABN*(09/18/2011 A Macrocyte) 08:52:00) [facility] HospitalBdtlpnjVVBCDAEXPO6933-11-21 13:52:00 Test Item Value Reference Range Interpretation Comments Lymphocytes # (test code = Lymphocytes 0.6 1.0-5.5 L #) [facility] HospitalLtnajnoXHKCEYAZXU7876-86-45 13:52:00 Test Item Value Reference Range Interpretation Comments Segs-Bands # (test code = Segs-Bands #) 10.8 1.5-8.1 H [facility] HospitalAhahpnoREERTAQZHL1627-30-22 13:52:00 Test Item Value Reference Range Interpretation Comments Basophils # (test code 0.0 See_Comment N [Aut omated message] The = Basophils #) system which generated this result tra nsmitted reference range : <=0.2. The reference r leo was not used to int erpret this result as normal/abnormal . [facility] HospitalXndgclxQCSJREAQTW5474-80-24 13:52:00 Test Item Value Reference Range Interpretation Comments Anisocyte (test code = 1+ *ABN*(09/18/2011 A Anisocyte) 08:52:00) [facility] ResourcesAiywwjwHKQPFXXGJY6467-15-07 13:52:00 Test Item Value Reference Range Interpretation Comments CDC-HIV 1/2 Ab (test Negative *NA*(09/18/2011 code = CDC-HIV 1/2 08:52:00) Ab) [facility] HZAZCJW7755-78-20 17:34:00 Test Item Value Reference Range Interpretation Comments Gluc POC Lifscn (test code = Gluc POC 215 70-99 H Lifscn) [facility] GLUCOSE DYQOGON4766-33-59 17:34:00 Test Item Value Reference Range Interpretation Comments Comment1 (test code = Comment1) Notify RN/ [facility] GLUCOSE KFHDYFX7804-48-43 17:34:00 Test Item Value Reference Range Interpretation Comments Gluc POC Lifscn (test code = Gluc POC 215 70-99 H Lifscn) [facility] GLUCOSE JAKJGTZ1797-78-54 17:34:00 Test Item Value Reference Range Interpretation Comments Comment1 (test code = Comment1) Notify RN/MD [facility] GLUCOSE JJLSEGC4774-60-21 17:34:00 Test Item Value Reference Range Interpretation Comments Gluc POC Lifscn (test code = Gluc POC 215 70-99 H Lifscn) [facility] GLUCOSE UBBDCYG5389-94-99 17:34:00 Test Item Value Reference Range Interpretation Comments Comment1 (test code = Comment1) Notify RN/ [facility] GLUCOSE ZJJLOJU8674-61-60 17:34:00 Test Item Value Reference Range Interpretation Comments Gluc POC Lifscn (test code = Gluc POC 215 70-99 H Lif[facility]n) [facility] GLUCOSE [id number] 17:34:00 Test Item Value Reference Range Interpretation Comments Comment1 (test code = Comment1) Notify RN/ [facility] GLUCOSE [id number] 17:34:00 Test Item Value Reference Range Interpretation Comments Gluc POC Lifscn (test code = Gluc POC 215 70-99 H Lif[facility]n) [facility] GLUCOSE CNLQQEB1345-35-80 17:34:00 Test Item Value Reference Range Interpretation Comments Comment1 (test code = Comment1) Notify RN/ [facility] GLUCOSE UTCXTXS6564-24-21 11:43:00 Test Item Value Reference Range Interpretation Comments Comment1 (test code = Comment1) Notify RN/MD [facility] GLUCOSE HOAXLNQ4212-99-05 11:43:00 Test Item Value Reference Range Interpretation Comments Gluc POC Lifscn (test code = Gluc POC 91 65-110 N Lif[facility]n) [facility] GLUCOSE UMNKTOD4991-91-66 11:43:00 Test Item Value Reference Range Interpretation Comments Comment1 (test code = Comment1) Notify RN/ [facility] GLUCOSE KNAJYDP1525-83-59 11:43:00 Test Item Value Reference Range Interpretation Comments Gluc POC Lifscn (test code = Gluc POC 91 65-110 N Lif[facility]) [facility] GLUCOSE HWXICEF2489-87-99 11:43:00 Test Item Value Reference Range Interpretation Comments Comment1 (test code = Comment1) Notify RN/ [facility] GLUCOSE TZJWQKQ1426-17-58 11:43:00 Test Item Value Reference Range Interpretation Comments Gluc POC Lifscn (test code = Gluc POC 91 65-110 N [facility]) [facility] GLUCOSE YEGYKJJ9607-09-64 11:43:00 Test Item Value Reference Range Interpretation Comments Comment1 (test code = Comment1) Notify RN/ [facility] GLUCOSE [id number] 11:43:00 Test Item Value Reference Range Interpretation Comments Gluc POC Lifscn (test code = Gluc POC 91 65-110 N [facility]) [facility] GLUCOSE DUWAMHY6907-38-63 11:43:00 Test Item Value Reference Range Interpretation Comments Comment1 (test code = Comment1) Notify RN/ [facility] GLUCOSE PGEEITG6302-32-00 11:43:00 Test Item Value Reference Range Interpretation Comments Gluc POC Lifscn (test code = Gluc POC 91 65-110 N [facility]) [facility] GLUCOSE [id number] 02:45:00 Test Item Value Reference Range Interpretation Comments Comment1 (test code = Comment1) Notify RN/ [facility] GLUCOSE AHBLFTP7374-97-28 02:45:00 Test Item Value Reference Range Interpretation Comments Gluc POC Lifscn (test code = Gluc POC 148 65-110 H Lifscn) [facility] GLUCOSE GFIPOGQ9460-52-74 02:45:00 Test Item Value Reference Range Interpretation Comments Comment1 (test code = Comment1) Notify RN/ [facility] GLUCOSE [id number] 02:45:00 Test Item Value Reference Range Interpretation Comments Gluc POC Lifscn (test code = Gluc POC 148 65-110 H Lifscn) [facility] GLUCOSE XHAXRPB8753-81-40 02:45:00 Test Item Value Reference Range Interpretation Comments Comment1 (test code = Comment1) Notify RN/ [facility] GLUCOSE QKWMFAF3874-27-28 02:45:00 Test Item Value Reference Range Interpretation Comments Gluc POC Lifscn (test code = Gluc POC 148 65-110 H Lif[facility]n) [facility] GLUCOSE [id number] 02:45:00 Test Item Value Reference Range Interpretation Comments Comment1 (test code = Comment1) Notify RN/ [facility] GLUCOSE [id number] 02:45:00 Test Item Value Reference Range Interpretation Comments Gluc POC Lifscn (test code = Gluc POC 148 65-110 H Lifscn) [facility] GLUCOSE [id number] 02:45:00 Test Item Value Reference Range Interpretation Comments Comment1 (test code = Comment1) Notify RN/ [facility] GLUCOSE [id number] 02:45:00 Test Item Value Reference Range Interpretation Comments Gluc POC Lifscn (test code = Gluc POC 148 65-110 H Lifscn) [facility]HoqlkyyQNZVVJQQW9204-84-75 08:47:00 Test Item Value Reference Range Interpretation Comments Sodium Lvl (test code = Sodium Lvl) 143 135-145 N [facility]ervilleWaujhgyRKTINSCJD9687-11-79 08:47:00 Test Item Value Reference Range Interpretation Comments Glucose Lvl (test code = Glucose Lvl) 105 [facility]MkqphsgEALFVDTRO9320-43-51 08:47:00 Test Item Value Reference Range Interpretation Comments CO2 (test code = CO2) 29 24-32 N [facility]BksclchLPIELZZOK8551-11-66 08:47:00 Test Item Value Reference Range Interpretation Comments Chloride Lvl (test code = Chloride Lvl) 103 95-109 N [facility] [place]FokuadhLXIJVBPUE8130-80-41 08:47:00 Test Item Value Reference Range Interpretation Comments BUN (test code = BUN) 10 7-22 N [facility] [place]ervilleDexzvevXILMNYTYD5476-17-26 08:47:00 Test Item Value Reference Range Interpretation Comments Potassium Lvl (test code = Potassium 3.8 3.5-5.1 N Lvl) [facility]ZdmlptdWGYKEQKLA2712-53-77 08:47:00 Test Item Value Reference Range Interpretation Comments Creatinine Lvl (test code = Creatinine 0.6 0.5-1.4 N Lvl) [facility]IhtuvymWDEUSSKJC9539-05-91 08:47:00 Test Item Value Reference Range Interpretation Comments Calcium Lvl (test code = Calcium Lvl) 8.5 8.5-10.5 N [facility] [place]XcwdeuiCSQZDKQZQ8856-13-92 08:47:00 Test Item Value Reference Range Interpretation Comments AGAP (test code = AGAP) 14.8 10.0-20.0 N [facility] HospitalHnbzhwwDJDRUTZRXZ3141-82-24 08:47:00 Test Item Value Reference Range Interpretation Comments MCH (test code = MCH) 28.9 pg 27.0-31.0 N [facility] HospitalXhtrclmQPEUGRYFZF9146-66-58 08:47:00 Test Item Value Reference Range Interpretation Comments MCV (test code = MCV) 82.1 81.0-99.0 N [facility] HospitalPnqrwrvJBVHHJBQSR0869-81-01 08:47:00 Test Item Value Reference Range Interpretation Comments Hct (test code = Hct) 25.9 36.0-48.0 L [facility] HospitalVrohmfaWJMNYNCSTS1351-33-61 08:47:00 Test Item Value Reference Range Interpretation Comments Platelet (test code = Platelet) 233 133-450 N [facility] HospitalBwoujbvTGNVJIZXVH0083-22-96 08:47:00 Test Item Value Reference Range Interpretation Comments RDW (test code = RDW) 14.5 11.5-14.5 N [facility] HospitalJssyndgZOLEMAAVIW8083-24-49 08:47:00 Test Item Value Reference Range Interpretation Comments MCHC (test code = MCHC) 35.2 32.0-36.0 N [facility] HospitalNboukzbNWRSLLPELF0324-44-50 08:47:00 Test Item Value Reference Range Interpretation Comments Hgb (test code = Hgb) 9.1 12.0-16.0 L [facility] HospitalWxrdffoFPTHJSCIZV6153-18-83 08:47:00 Test Item Value Reference Range Interpretation Comments RBC (test code = RBC) 3.15 4.20-5.40 L [facility] HospitalRoghsnvQRKLXQWQML1943-59-59 08:47:00 Test Item Value Reference Range Interpretation Comments MPV (test code = MPV) 9.0 7.4-10.4 N [facility] HospitalAcfsjjpNDKIRMBIMC6904-99-99 08:47:00 Test Item Value Reference Range Interpretation Comments WBC (test code = WBC) 6.3 3.7-10.4 N [facility] HospitalMxxdpkdTGUPIXCYLN5062-85-03 08:47:00 Test Item Value Reference Range Interpretation Comments Eosinophils # (test code 0.0 See_Comment N [A utomated message] The = Eosinophils #) system whic h generated this result tra nsmitted reference range : <=0.5. The reference r leo was not used to int erpret this result as normal/abnormal . [facility] HospitalDgneyxgXSASFHQXTB8335-25-22 08:47:00 Test Item Value Reference Range Interpretation Comments Basophils # (test code 0.0 See_Comment N [Aut omated message] The = Basophils #) system which generated this result tra nsmitted reference range : <=0.2. The reference r leo was not used to int erpret this result as normal/abnormal . [facility] HospitalYxmgvkqFSOLTIWPWJ5461-59-53 08:47:00 Test Item Value Reference Range Interpretation Comments Segs-Bands # (test code = Segs-Bands #) 3.8 1.5-8.1 N [facility] HospitalWhksvbuOUGKUISXSH5194-19-49 08:47:00 Test Item Value Reference Range Interpretation Comments Lymphocytes # (test code = Lymphocytes 2.0 1.0-5.5 N #) [facility] HospitalZfmuhdhFLWWDPALOD6541-62-02 08:47:00 Test Item Value Reference Range Interpretation Comments Basophils (test code = 0.5 See_Comment N [Aut omated message] The Basophils) system which ge nerated this result tra nsmitted reference range : <=1.0. The reference r leo was not used to int erpret this result as normal/abnormal . [facility] HospitalKettczxPFFDUXKCYD4031-22-15 08:47:00 Test Item Value Reference Range Interpretation Comments Eosinophils (test code = 0.7 See_Comment N [A utomated message] The Eosinophils) system which ge nerated this result tra nsmitted reference range : <=4.0. The reference r leo was not used to int erpret this result as normal/abnormal . [facility] HospitalBcsxgjaVKQRZLVSKW1184-41-24 08:47:00 Test Item Value Reference Range Interpretation Comments Monocytes (test code = Monocytes) 6.2 2.0-12.0 N [facility] HospitalVmvjxuoMQHVQUHPMH4957-89-13 08:47:00 Test Item Value Reference Range Interpretation Comments Segs (test code = Segs) 61.1 45.0-75.0 N [facility] HospitalLkypzjjQAIKLETUKS6741-63-55 08:47:00 Test Item Value Reference Range Interpretation Comments Lymphocytes (test code = Lymphocytes) 31.5 20.0-40.0 N [facility] HospitalRundunxJVJFRMPCXD9546-00-87 08:47:00 Test Item Value Reference Range Interpretation Comments Monocytes # (test code 0.4 See_Comment N [Aut omated message] The = Monocytes #) system which generated this result tra nsmitted reference range : <=0.8. The reference r leo was not used to int erpret this result as normal/abnormal . [facility]ApkdeupXVHNMXLWO3009-55-04 08:47:00 Test Item Value Reference Range Interpretation Comments Sodium Lvl (test code = Sodium Lvl) 143 135-145 N [facility] [place]YywwozgKHQSVYTNM1759-14-53 08:47:00 Test Item Value Reference Range Interpretation Comments Glucose Lvl (test code = Glucose Lvl) 105 [facility] [place]YcnyobdSXDJFFZBP2130-37-16 08:47:00 Test Item Value Reference Range Interpretation Comments CO2 (test code = CO2) 29 24-32 N [facility] [place]ZifcxuqVFOSWAOTG6321-37-48 08:47:00 Test Item Value Reference Range Interpretation Comments Chloride Lvl (test code = Chloride Lvl) 103 95-109 N [facility] [place]OqcdngdUEUSKGUQK1689-73-53 08:47:00 Test Item Value Reference Range Interpretation Comments BUN (test code = BUN) 10 7-22 N [facility] [place]KvimzlmWSVUDREFA5994-04-52 08:47:00 Test Item Value Reference Range Interpretation Comments Potassium Lvl (test code = Potassium 3.8 3.5-5.1 N Lvl) [facility] [place]ervilleWbtgakcRIQCMYYLN7599-88-58 08:47:00 Test Item Value Reference Range Interpretation Comments Creatinine Lvl (test code = Creatinine 0.6 0.5-1.4 N Lvl) [facility]ervilleJvunvqmGPYRVYPOO5965-42-33 08:47:00 Test Item Value Reference Range Interpretation Comments Calcium Lvl (test code = Calcium Lvl) 8.5 8.5-10.5 N [facility] [place]ervilleUjxwcmcXULCQIITC6221-61-65 08:47:00 Test Item Value Reference Range Interpretation Comments AGAP (test code = AGAP) 14.8 10.0-20.0 N [facility] HospitalQqvvwygRKOOTVMHST5973-63-34 08:47:00 Test Item Value Reference Range Interpretation Comments MCH (test code = MCH) 28.9 pg 27.0-31.0 N [facility] HospitalAnvfekeVEWVXLOOMK1032-09-16 08:47:00 Test Item Value Reference Range Interpretation Comments MCV (test code = MCV) 82.1 81.0-99.0 N [facility] HospitalEqdrbksLKZGZKNEXV2600-91-34 08:47:00 Test Item Value Reference Range Interpretation Comments Hct (test code = Hct) 25.9 36.0-48.0 L [facility] HospitalAxtvsjzPHJBSDXKNI8009-35-73 08:47:00 Test Item Value Reference Range Interpretation Comments Platelet (test code = Platelet) 233 133-450 N [facility] HospitalAphbscaUGTEUPWBEQ1616-06-70 08:47:00 Test Item Value Reference Range Interpretation Comments RDW (test code = RDW) 14.5 11.5-14.5 N [facility] HospitalFiplfgpSVDYRPEQMF5262-65-51 08:47:00 Test Item Value Reference Range Interpretation Comments MCHC (test code = MCHC) 35.2 32.0-36.0 N [facility] HospitalYrhgqehGQJFBMBCIQ8269-18-54 08:47:00 Test Item Value Reference Range Interpretation Comments Hgb (test code = Hgb) 9.1 12.0-16.0 L [facility] HospitalHrrsdfrBELIHOTZKV0987-74-03 08:47:00 Test Item Value Reference Range Interpretation Comments RBC (test code = RBC) 3.15 4.20-5.40 L [facility] HospitalRnxlkccCSAHHZUSIV8654-01-36 08:47:00 Test Item Value Reference Range Interpretation Comments MPV (test code = MPV) 9.0 7.4-10.4 N [facility] HospitalBggtivxKXJNQYFEGM0264-22-44 08:47:00 Test Item Value Reference Range Interpretation Comments WBC (test code = WBC) 6.3 3.7-10.4 N [facility] HospitalDoxxwrkYKKCWAFFJU8325-29-71 08:47:00 Test Item Value Reference Range Interpretation Comments Eosinophils # (test code 0.0 See_Comment N [A utomated message] The = Eosinophils #) system whic h generated this result tra nsmitted reference range : <=0.5. The reference r leo was not used to int erpret this result as normal/abnormal . [facility] HospitalBsoetjkBSJASODUMS0809-84-80 08:47:00 Test Item Value Reference Range Interpretation Comments Basophils # (test code 0.0 See_Comment N [Aut omated message] The = Basophils #) system which generated this result tra nsmitted reference range : <=0.2. The reference r leo was not used to int erpret this result as normal/abnormal . [facility] HospitalZnxkobmOMMFYOBLJQ7727-32-42 08:47:00 Test Item Value Reference Range Interpretation Comments Segs-Bands # (test code = Segs-Bands #) 3.8 1.5-8.1 N [facility] HospitalNgminvlGBEHIPGSOU3469-51-72 08:47:00 Test Item Value Reference Range Interpretation Comments Lymphocytes # (test code = Lymphocytes 2.0 1.0-5.5 N #) [facility] HospitalMxysuvlLSSGATKNGI1685-88-45 08:47:00 Test Item Value Reference Range Interpretation Comments Basophils (test code = 0.5 See_Comment N [Aut omated message] The Basophils) system which ge nerated this result tra nsmitted reference range : <=1.0. The reference r leo was not used to int erpret this result as normal/abnormal . [facility] HospitalEpfcekhPQGWTCPUPF1105-50-39 08:47:00 Test Item Value Reference Range Interpretation Comments Eosinophils (test code = 0.7 See_Comment N [A utomated message] The Eosinophils) system which ge nerated this result tra nsmitted reference range : <=4.0. The reference r leo was not used to int erpret this result as normal/abnormal . [facility] HospitalPmsdsxaHLQZELKRLU2921-14-72 08:47:00 Test Item Value Reference Range Interpretation Comments Monocytes (test code = Monocytes) 6.2 2.0-12.0 N [facility] HospitalOlvybueTQDECLWRSM6581-43-79 08:47:00 Test Item Value Reference Range Interpretation Comments Segs (test code = Segs) 61.1 45.0-75.0 N [facility] HospitalHtivajaQJSJSEQTCS8450-96-28 08:47:00 Test Item Value Reference Range Interpretation Comments Lymphocytes (test code = Lymphocytes) 31.5 20.0-40.0 N [facility] HospitalMlmkdpaPQJFHQTJAW4711-29-91 08:47:00 Test Item Value Reference Range Interpretation Comments Monocytes # (test code 0.4 See_Comment N [Aut omated message] The = Monocytes #) system which generated this result tra nsmitted reference range : <=0.8. The reference r leo was not used to int erpret this result as normal/abnormal . [facility]PnobbniXKAJUPFYO2508-36-57 08:47:00 Test Item Value Reference Range Interpretation Comments Sodium Lvl (test code = Sodium Lvl) 143 135-145 N [facility] [place]UmebmtsAPPLOOTCT2688-12-31 08:47:00 Test Item Value Reference Range Interpretation Comments Glucose Lvl (test code = Glucose Lvl) 105 [facility] [place]AnfwxxeXIXUGAZML8591-94-97 08:47:00 Test Item Value Reference Range Interpretation Comments CO2 (test code = CO2) 29 24-32 N [facility] [place]LsuirqfGLYTMUANL1630-02-61 08:47:00 Test Item Value Reference Range Interpretation Comments Chloride Lvl (test code = Chloride Lvl) 103 95-109 N [facility] [place]XnrntlzLYAKMNYZJ2109-35-50 08:47:00 Test Item Value Reference Range Interpretation Comments BUN (test code = BUN) 10 7-22 N [facility] [place]LlocbcwVAMOLLSSS1212-45-75 08:47:00 Test Item Value Reference Range Interpretation Comments Potassium Lvl (test code = Potassium 3.8 3.5-5.1 N Lvl) [facility] [place]MfeweyeIQNFLEENY0818-57-27 08:47:00 Test Item Value Reference Range Interpretation Comments Creatinine Lvl (test code = Creatinine 0.6 0.5-1.4 N Lvl) [facility] [place]MexwhclYLZHMNPBU4220-97-44 08:47:00 Test Item Value Reference Range Interpretation Comments Calcium Lvl (test code = Calcium Lvl) 8.5 8.5-10.5 N [facility] [place]DlcptlmVFOGCLDKT5205-36-17 08:47:00 Test Item Value Reference Range Interpretation Comments AGAP (test code = AGAP) 14.8 10.0-20.0 N [facility] HospitalErosbnqSOCVTWSJCS7189-65-59 08:47:00 Test Item Value Reference Range Interpretation Comments MCH (test code = MCH) 28.9 pg 27.0-31.0 N [facility] HospitalNdcqhbdSRSQOENJVF1086-40-49 08:47:00 Test Item Value Reference Range Interpretation Comments MCV (test code = MCV) 82.1 81.0-99.0 N [facility] HospitalDcchyliYJISGTALXE4518-67-45 08:47:00 Test Item Value Reference Range Interpretation Comments Hct (test code = Hct) 25.9 36.0-48.0 L [facility] HospitalMzhnbtsOQEFWFDJPT5235-81-73 08:47:00 Test Item Value Reference Range Interpretation Comments Platelet (test code = Platelet) 233 133-450 N [facility] HospitalGhxipiaSIOXXLTCUB6866-28-65 08:47:00 Test Item Value Reference Range Interpretation Comments RDW (test code = RDW) 14.5 11.5-14.5 N [facility] HospitalNvhlqutEOIQOOQGHO6663-01-07 08:47:00 Test Item Value Reference Range Interpretation Comments MCHC (test code = MCHC) 35.2 32.0-36.0 N [facility] HospitalQhujzzxDNZNLBIVPE5776-02-62 08:47:00 Test Item Value Reference Range Interpretation Comments Hgb (test code = Hgb) 9.1 12.0-16.0 L [facility] HospitalVgsjitqWZPUPVTKOY2255-75-71 08:47:00 Test Item Value Reference Range Interpretation Comments RBC (test code = RBC) 3.15 4.20-5.40 L [facility] HospitalYsahzuaUIJDBGFPBA5314-48-31 08:47:00 Test Item Value Reference Range Interpretation Comments MPV (test code = MPV) 9.0 7.4-10.4 N [facility] HospitalGqjrimyVTGQFLMGAP9932-96-43 08:47:00 Test Item Value Reference Range Interpretation Comments WBC (test code = WBC) 6.3 3.7-10.4 N [facility] HospitalDftigcwLYWWELSTZV8970-67-76 08:47:00 Test Item Value Reference Range Interpretation Comments Eosinophils # (test code 0.0 See_Comment N [A utomated message] The = Eosinophils #) system whic h generated this result tra nsmitted reference range : <=0.5. The reference r leo was not used to int erpret this result as normal/abnormal . [facility] HospitalDlkwtydOFRSUHZHPW3391-84-16 08:47:00 Test Item Value Reference Range Interpretation Comments Basophils # (test code 0.0 See_Comment N [Aut omated message] The = Basophils #) system which generated this result tra nsmitted reference range : <=0.2. The reference r leo was not used to int erpret this result as normal/abnormal . [facility] HospitalQumtivnYFIITYKCDZ8976-11-70 08:47:00 Test Item Value Reference Range Interpretation Comments Segs-Bands # (test code = Segs-Bands #) 3.8 1.5-8.1 N [facility] HospitalCtyhmkjGCIJMKDLNN8492-28-05 08:47:00 Test Item Value Reference Range Interpretation Comments Lymphocytes # (test code = Lymphocytes 2.0 1.0-5.5 N #) [facility] HospitalMasdxapJBDDZRRPKI7260-29-09 08:47:00 Test Item Value Reference Range Interpretation Comments Basophils (test code = 0.5 See_Comment N [Aut omated message] The Basophils) system which ge nerated this result tra nsmitted reference range : <=1.0. The reference r leo was not used to int erpret this result as normal/abnormal . [facility] HospitalCynrgyuIUUYIBEJQR0473-24-99 08:47:00 Test Item Value Reference Range Interpretation Comments Eosinophils (test code = 0.7 See_Comment N [A utomated message] The Eosinophils) system which ge nerated this result tra nsmitted reference range : <=4.0. The reference r leo was not used to int erpret this result as normal/abnormal . [facility] HospitalVzvilbsANLUDHUOHL5957-39-69 08:47:00 Test Item Value Reference Range Interpretation Comments Monocytes (test code = Monocytes) 6.2 2.0-12.0 N [facility] HospitalVmfixykOAEFBWRWBW1461-18-49 08:47:00 Test Item Value Reference Range Interpretation Comments Segs (test code = Segs) 61.1 45.0-75.0 N [facility] HospitalNlxxukyIPPSNUXVYN5412-50-92 08:47:00 Test Item Value Reference Range Interpretation Comments Lymphocytes (test code = Lymphocytes) 31.5 20.0-40.0 N [facility] HospitalCxxcsevIMKAFECQHC5469-25-11 08:47:00 Test Item Value Reference Range Interpretation Comments Monocytes # (test code 0.4 See_Comment N [Aut omated message] The = Monocytes #) system which generated this result tra nsmitted reference range : <=0.8. The reference r leo was not used to int erpret this result as normal/abnormal . [facility]ervilleCejxhheRFFFKZYSP8996-07-76 08:47:00 Test Item Value Reference Range Interpretation Comments Sodium Lvl (test code = Sodium Lvl) 143 135-145 N [facility] [place]ervilleCatndzfKOEPXZNLS2922-49-06 08:47:00 Test Item Value Reference Range Interpretation Comments Glucose Lvl (test code = Glucose Lvl) 105 [facility] [place]ervilleDkzaezpGAYCUOSPM1207-44-68 08:47:00 Test Item Value Reference Range Interpretation Comments CO2 (test code = CO2) 29 24-32 N [facility] [place]QdupdlwAPAJSMVLI1523-30-13 08:47:00 Test Item Value Reference Range Interpretation Comments Chloride Lvl (test code = Chloride Lvl) 103 95-109 N [facility] [place]DxtrpnxDTLKUWYRB9975-16-96 08:47:00 Test Item Value Reference Range Interpretation Comments BUN (test code = BUN) 10 7-22 N [facility] [place]RrjxpzoVWMLSZMOO0957-21-16 08:47:00 Test Item Value Reference Range Interpretation Comments Potassium Lvl (test code = Potassium 3.8 3.5-5.1 N Lvl) [facility] [place]MpmrtwnTDCTEDDDB9032-70-37 08:47:00 Test Item Value Reference Range Interpretation Comments Creatinine Lvl (test code = Creatinine 0.6 0.5-1.4 N Lvl) [facility] [place]OiyffahKZHTQUODU3370-95-22 08:47:00 Test Item Value Reference Range Interpretation Comments Calcium Lvl (test code = Calcium Lvl) 8.5 8.5-10.5 N [facility] [place]DbhqdonSPJVQTIVV0551-78-41 08:47:00 Test Item Value Reference Range Interpretation Comments AGAP (test code = AGAP) 14.8 10.0-20.0 N [facility] HospitalDpdhzacFAXWMBGZKB2863-40-86 08:47:00 Test Item Value Reference Range Interpretation Comments MCH (test code = MCH) 28.9 pg 27.0-31.0 N [facility] HospitalCuurscqKIFWFBXQRG9972-62-88 08:47:00 Test Item Value Reference Range Interpretation Comments MCV (test code = MCV) 82.1 81.0-99.0 N [facility] HospitalXsozelrOYHWWGRVRF1661-08-26 08:47:00 Test Item Value Reference Range Interpretation Comments Hct (test code = Hct) 25.9 36.0-48.0 L [facility] HospitalWokiymcOSRZHHKWSL4738-81-80 08:47:00 Test Item Value Reference Range Interpretation Comments Platelet (test code = Platelet) 233 133-450 N [facility] HospitalPrtcpnqKADMPZFCOP0147-50-62 08:47:00 Test Item Value Reference Range Interpretation Comments RDW (test code = RDW) 14.5 11.5-14.5 N [facility] HospitalMmzmegyGCEMVMQMUT9534-16-89 08:47:00 Test Item Value Reference Range Interpretation Comments MCHC (test code = MCHC) 35.2 32.0-36.0 N [facility] HospitalCocmwysZEHLUTYAMO4557-79-68 08:47:00 Test Item Value Reference Range Interpretation Comments Hgb (test code = Hgb) 9.1 12.0-16.0 L [facility] HospitalIetfxqwWOZXRWWKUO1173-83-84 08:47:00 Test Item Value Reference Range Interpretation Comments RBC (test code = RBC) 3.15 4.20-5.40 L [facility] HospitalHheljdpZCNQRYCURZ8524-99-58 08:47:00 Test Item Value Reference Range Interpretation Comments MPV (test code = MPV) 9.0 7.4-10.4 N [facility] HospitalRnvaprqSOMAUKYOOS7503-39-92 08:47:00 Test Item Value Reference Range Interpretation Comments WBC (test code = WBC) 6.3 3.7-10.4 N [facility] HospitalRuordmnRCCNPVPJFY6792-67-98 08:47:00 Test Item Value Reference Range Interpretation Comments Eosinophils # (test code 0.0 See_Comment N [A utomated message] The = Eosinophils #) system whic h generated this result tra nsmitted reference range : <=0.5. The reference r leo was not used to int erpret this result as normal/abnormal . [facility] HospitalJhhazzkLAOIPRAOTS9244-13-02 08:47:00 Test Item Value Reference Range Interpretation Comments Basophils # (test code 0.0 See_Comment N [Aut omated message] The = Basophils #) system which generated this result tra nsmitted reference range : <=0.2. The reference r leo was not used to int erpret this result as normal/abnormal . [facility] HospitalAwmcrbcPYOXNZBNHC7147-95-24 08:47:00 Test Item Value Reference Range Interpretation Comments Segs-Bands # (test code = Segs-Bands #) 3.8 1.5-8.1 N [facility] HospitalDqfqcgpGVEAFHOGKV0150-07-08 08:47:00 Test Item Value Reference Range Interpretation Comments Lymphocytes # (test code = Lymphocytes 2.0 1.0-5.5 N #) [facility] HospitalUbdvdrvTBXCLESCQB3177-13-22 08:47:00 Test Item Value Reference Range Interpretation Comments Basophils (test code = 0.5 See_Comment N [Aut omated message] The Basophils) system which ge nerated this result tra nsmitted reference range : <=1.0. The reference r leo was not used to int erpret this result as normal/abnormal . [facility] HospitalBjohifpNXDLAHUDZZ4435-51-05 08:47:00 Test Item Value Reference Range Interpretation Comments Eosinophils (test code = 0.7 See_Comment N [A utomated message] The Eosinophils) system which ge nerated this result tra nsmitted reference range : <=4.0. The reference r leo was not used to int erpret this result as normal/abnormal . [facility] HospitalYtgqvxwQWETAIQJQK4546-66-83 08:47:00 Test Item Value Reference Range Interpretation Comments Monocytes (test code = Monocytes) 6.2 2.0-12.0 N [facility] HospitalOjpfsapBAVUFZYKDU7649-70-05 08:47:00 Test Item Value Reference Range Interpretation Comments Segs (test code = Segs) 61.1 45.0-75.0 N [facility] HospitalZcvujzvBWKINRVDXW9670-06-19 08:47:00 Test Item Value Reference Range Interpretation Comments Lymphocytes (test code = Lymphocytes) 31.5 20.0-40.0 N [facility] HospitalIzfcqwqSJMHLHBQNS9560-59-87 08:47:00 Test Item Value Reference Range Interpretation Comments Monocytes # (test code 0.4 See_Comment N [Aut omated message] The = Monocytes #) system which generated this result tra nsmitted reference range : <=0.8. The reference r leo was not used to int erpret this result as normal/abnormal . [facility]QosyeziCVEAVLPFU8913-85-32 08:47:00 Test Item Value Reference Range Interpretation Comments Sodium Lvl (test code = Sodium Lvl) 143 135-145 N [facility] [place]CzblizuVYRZAMPGS9874-19-11 08:47:00 Test Item Value Reference Range Interpretation Comments Glucose Lvl (test code = Glucose Lvl) 105 [facility] [place]ervilleLlfyoydATWOOFSGU3884-09-95 08:47:00 Test Item Value Reference Range Interpretation Comments CO2 (test code = CO2) 29 24-32 N [facility] [place]ByffaieGOFKJJCNX9721-84-20 08:47:00 Test Item Value Reference Range Interpretation Comments Chloride Lvl (test code = Chloride Lvl) 103 95-109 N [facility] [place]ervilleKnthlgaJCRYGAVBD6634-83-27 08:47:00 Test Item Value Reference Range Interpretation Comments BUN (test code = BUN) 10 7-22 N [facility] [place]RcyqbfvINAYQASLZ7630-01-12 08:47:00 Test Item Value Reference Range Interpretation Comments Potassium Lvl (test code = Potassium 3.8 3.5-5.1 N Lvl) [facility] [place]ervilleLyinollEJFUQWSKL8017-76-88 08:47:00 Test Item Value Reference Range Interpretation Comments Creatinine Lvl (test code = Creatinine 0.6 0.5-1.4 N Lvl) [facility] [place]VtrdujbKYDPDAVPZ2287-61-07 08:47:00 Test Item Value Reference Range Interpretation Comments Calcium Lvl (test code = Calcium Lvl) 8.5 8.5-10.5 N [facility]ervilleLhvsbxoDZPNFTALC1716-20-30 08:47:00 Test Item Value Reference Range Interpretation Comments AGAP (test code = AGAP) 14.8 10.0-20.0 N [facility] HospitalKnnrzlqQPANFORQKO3960-74-81 08:47:00 Test Item Value Reference Range Interpretation Comments MCH (test code = MCH) 28.9 pg 27.0-31.0 N [facility] HospitalZhvkzsgIFSVWFKHKQ9783-83-45 08:47:00 Test Item Value Reference Range Interpretation Comments MCV (test code = MCV) 82.1 81.0-99.0 N [facility] HospitalSpbatrtIWWPXBDLME1249-54-37 08:47:00 Test Item Value Reference Range Interpretation Comments Hct (test code = Hct) 25.9 36.0-48.0 L [facility] HospitalAbmwrqsLHYYLOTPHU5114-22-25 08:47:00 Test Item Value Reference Range Interpretation Comments Platelet (test code = Platelet) 233 133-450 N [facility] HospitalWqkmtvaGNYQUFYXKY2290-46-59 08:47:00 Test Item Value Reference Range Interpretation Comments RDW (test code = RDW) 14.5 11.5-14.5 N [facility] HospitalKegnrvwOVCVZIFMVC5418-81-01 08:47:00 Test Item Value Reference Range Interpretation Comments MCHC (test code = MCHC) 35.2 32.0-36.0 N [facility] HospitalEcwfiuzFKLBJZSJJV9894-60-02 08:47:00 Test Item Value Reference Range Interpretation Comments Hgb (test code = Hgb) 9.1 12.0-16.0 L [facility] HospitalVeqhqxnYNTKYIBBVX2435-97-81 08:47:00 Test Item Value Reference Range Interpretation Comments RBC (test code = RBC) 3.15 4.20-5.40 L [facility] HospitalEehgeaaKQUSRESPGL1746-11-72 08:47:00 Test Item Value Reference Range Interpretation Comments MPV (test code = MPV) 9.0 7.4-10.4 N [facility] HospitalAzefypnULAORUUWHU6323-87-54 08:47:00 Test Item Value Reference Range Interpretation Comments WBC (test code = WBC) 6.3 3.7-10.4 N [facility] HospitalYlhfhdiALJZFTUOHO9821-95-15 08:47:00 Test Item Value Reference Range Interpretation Comments Eosinophils # (test code 0.0 See_Comment N [A utomated message] The = Eosinophils #) system whic h generated this result tra nsmitted reference range : <=0.5. The reference r leo was not used to int erpret this result as normal/abnormal . [facility] HospitalCanosicAUCFWRYYXV0148-43-40 08:47:00 Test Item Value Reference Range Interpretation Comments Basophils # (test code 0.0 See_Comment N [Aut omated message] The = Basophils #) system which generated this result tra nsmitted reference range : <=0.2. The reference r leo was not used to int erpret this result as normal/abnormal . [facility]GcvkmbjSIYXQCUYSK0671-47-55 08:47:00 Test Item Value Reference Range Interpretation Comments Segs-Bands # (test code = Segs-Bands #) 3.8 1.5-8.1 N [facility] HospitalXhmotrlRZMYEJBFHR4762-03-61 08:47:00 Test Item Value Reference Range Interpretation Comments Lymphocytes # (test code = Lymphocytes 2.0 1.0-5.5 N #) [facility] HospitalVwxiscfRZJTMYIJEB3837-34-01 08:47:00 Test Item Value Reference Range Interpretation Comments Basophils (test code = 0.5 See_Comment N [Aut omated message] The Basophils) system which ge nerated this result tra nsmitted reference range : <=1.0. The reference r leo was not used to int erpret this result as normal/abnormal . [facility] HospitalFytlemjLEDJWGQFPL6935-47-22 08:47:00 Test Item Value Reference Range Interpretation Comments Eosinophils (test code = 0.7 See_Comment N [A utomated message] The Eosinophils) system which ge nerated this result tra nsmitted reference range : <=4.0. The reference r leo was not used to int erpret this result as normal/abnormal . [facility] HospitalJiqpxubUAKXTKQLVE3760-55-22 08:47:00 Test Item Value Reference Range Interpretation Comments Monocytes (test code = Monocytes) 6.2 2.0-12.0 N [facility] HospitalCruouvhDLXNEWCWMZ2578-88-18 08:47:00 Test Item Value Reference Range Interpretation Comments Segs (test code = Segs) 61.1 45.0-75.0 N [facility] HospitalOmrwpxuOFBKPBPNRB3899-37-56 08:47:00 Test Item Value Reference Range Interpretation Comments Lymphocytes (test code = Lymphocytes) 31.5 20.0-40.0 N [facility] HospitalUeedjanUMNSJULQSS0130-87-38 08:47:00 Test Item Value Reference Range Interpretation Comments Monocytes # (test code 0.4 See_Comment N [Aut omated message] The = Monocytes #) system which generated this result tra nsmitted reference range : <=0.8. The reference r leo was not used to int erpret this result as normal/abnormal . [facility]KwkooynZADBCAVLY3850-80-74 10:54:00 Test Item Value Reference Range Interpretation Comments CO2 (test code = CO2) 27 24-32 N [facility] [place]YyrmlxmIJZOXLANZ6994-08-73 10:54:00 Test Item Value Reference Range Interpretation Comments Chloride Lvl (test code = Chloride Lvl) 104 95-109 N [facility] [place]QkckuogNTZJRFASL8986-05-92 10:54:00 Test Item Value Reference Range Interpretation Comments Creatinine Lvl (test code = Creatinine 0.5 0.5-1.4 N Lvl) [facility] [place]ZomwqswTQSNRWTPZ5540-56-60 10:54:00 Test Item Value Reference Range Interpretation Comments BUN (test code = BUN) 10 7-22 N [facility] [place]VrwnfumBWBZHTNHZ8562-03-23 10:54:00 Test Item Value Reference Range Interpretation Comments Potassium Lvl (test code = Potassium 4.1 3.5-5.1 N Lvl) [facility] [place]VnerbiiUEPUGOQFK6921-00-52 10:54:00 Test Item Value Reference Range Interpretation Comments Sodium Lvl (test code = Sodium Lvl) 141 135-145 N [facility] [place]ervilleZyqldyzMDZIRFWIG4237-68-83 10:54:00 Test Item Value Reference Range Interpretation Comments Glucose Lvl (test code = Glucose Lvl) 83 [facility] [place]ervilleBnrrvglWQILBKGAU1965-15-92 10:54:00 Test Item Value Reference Range Interpretation Comments Calcium Lvl (test code = Calcium Lvl) 8.4 8.5-10.5 L [facility] [place]FjjlmndTYRHONRZY5526-51-98 10:54:00 Test Item Value Reference Range Interpretation Comments AGAP (test code = AGAP) 14.1 10.0-20.0 N [facility] HospitalMdqovnbIFXMTOPSGO9642-37-90 10:54:00 Test Item Value Reference Range Interpretation Comments Hct (test code = Hct) 35.5 36.0-48.0 L [facility] HospitalWrpkfogRIHOIBVSYL1950-01-20 10:54:00 Test Item Value Reference Range Interpretation Comments WBC (test code = WBC) 4.7 3.7-10.4 N [facility] HospitalDmemncbONNHWJOMJX2255-40-11 10:54:00 Test Item Value Reference Range Interpretation Comments MCV (test code = MCV) 92.6 81.0-99.0 N [facility] HospitalXbhkptjKNRZUPSFPJ5561-02-01 10:54:00 Test Item Value Reference Range Interpretation Comments MCH (test code = MCH) 31.4 pg 27.0-31.0 H [facility] HospitalXzltufzRPJUFYFDYI6860-20-82 10:54:00 Test Item Value Reference Range Interpretation Comments RBC (test code = RBC) 3.84 4.20-5.40 L [facility] HospitalEqielwmXKXCYBQUZI4441-74-10 10:54:00 Test Item Value Reference Range Interpretation Comments Hgb (test code = Hgb) 12.1 12.0-16.0 N [facility] HospitalSxalnsbAHWQKFPIBT6903-15-60 10:54:00 Test Item Value Reference Range Interpretation Comments Platelet (test code = Platelet) 287 133-450 N [facility] HospitalYdkboflZEEANLLJEF6116-14-33 10:54:00 Test Item Value Reference Range Interpretation Comments RDW (test code = RDW) 12.7 11.5-14.5 N [facility] HospitalLbkisfrJBHVZSOLYS5456-25-89 10:54:00 Test Item Value Reference Range Interpretation Comments MCHC (test code = MCHC) 33.9 32.0-36.0 N [facility] HospitalMzlgzmaKKWUQGAMHO1151-79-65 10:54:00 Test Item Value Reference Range Interpretation Comments MPV (test code = MPV) 7.2 7.4-10.4 L [facility] HospitalHwhbbbiRMLBUSEBAQ3071-56-02 10:54:00 Test Item Value Reference Range Interpretation Comments INR (test code = INR) 0.95 0.85-1.17 N [facility] HospitalPabpodkOHTJCZCNEK6559-24-19 10:54:00 Test Item Value Reference Range Interpretation Comments PT (test code = PT) 12.7 s 12.0-14.7 N [facility] HospitalXtjqselDDAIBKMNWG7597-68-71 10:54:00 Test Item Value Reference Range Interpretation Comments PTT (test code = PTT) 28.5 s 22.9-35.8 N [facility] HospitalQtkmeouQJZQEZKSET6020-04-57 10:54:00 Test Item Value Reference Range Interpretation Comments Eosinophils # (test code 0.1 See_Comment N [A utomated message] The = Eosinophils #) system whic h generated this result tra nsmitted reference range : <=0.5. The reference r leo was not used to int erpret this result as normal/abnormal . [facility] HospitalCnnoswoGZJXFKTKZY4310-21-54 10:54:00 Test Item Value Reference Range Interpretation Comments Basophils # (test code 0.0 See_Comment N [Aut omated message] The = Basophils #) system which generated this result tra nsmitted reference range : <=0.2. The reference r leo was not used to int erpret this result as normal/abnormal . [facility] HospitalFkextflGVOAOGBSLP9851-59-32 10:54:00 Test Item Value Reference Range Interpretation Comments Basophils (test code = 0.4 See_Comment N [Aut omated message] The Basophils) system which ge nerated this result tra nsmitted reference range : <=1.0. The reference r leo was not used to int erpret this result as normal/abnormal . [facility] HospitalNrnjqziPIGGHTCVIS1205-21-51 10:54:00 Test Item Value Reference Range Interpretation Comments Segs-Bands # (test code = Segs-Bands #) 2.1 1.5-8.1 N [facility] HospitalWkltcttMBIATNYJHX4767-11-57 10:54:00 Test Item Value Reference Range Interpretation Comments Monocytes (test code = Monocytes) 9.0 2.0-12.0 N [facility] HospitalFzysakpOGHLGMJHEH8533-01-12 10:54:00 Test Item Value Reference Range Interpretation Comments Eosinophils (test code = 2.4 See_Comment N [A utomated message] The Eosinophils) system which ge nerated this result tra nsmitted reference range : <=4.0. The reference r leo was not used to int erpret this result as normal/abnormal . [facility] HospitalLgrevlvSAPMBYRVTK2829-84-61 10:54:00 Test Item Value Reference Range Interpretation Comments Monocytes # (test code 0.4 See_Comment N [Aut omated message] The = Monocytes #) system which generated this result tra nsmitted reference range : <=0.8. The reference r leo was not used to int erpret this result as normal/abnormal . [facility] HospitalQxyhcxvMFICNZZAWL6555-98-98 10:54:00 Test Item Value Reference Range Interpretation Comments Lymphocytes # (test code = Lymphocytes 2.0 1.0-5.5 N #) [facility] HospitalYmxkfrjGCYCFYXJRY2048-85-21 10:54:00 Test Item Value Reference Range Interpretation Comments Lymphocytes (test code = Lymphocytes) 42.8 20.0-40.0 H [facility] HospitalLgfzrilYPDNCGKQCH4810-76-41 10:54:00 Test Item Value Reference Range Interpretation Comments Segs (test code = Segs) 45.4 45.0-75.0 N [facility]ervilleSkowhosLYTKXZIFC4650-49-66 10:54:00 Test Item Value Reference Range Interpretation Comments CO2 (test code = CO2) 27 24-32 N [facility] [place]WpxdnklFPGMAJGIR1745-37-10 10:54:00 Test Item Value Reference Range Interpretation Comments Chloride Lvl (test code = Chloride Lvl) 104 95-109 N [facility] [place]ervilleSpcilbgLIIMFZMSE1450-50-34 10:54:00 Test Item Value Reference Range Interpretation Comments Creatinine Lvl (test code = Creatinine 0.5 0.5-1.4 N Lvl) [facility] [place]ervilleLguttlaADBSIRIZA5721-11-78 10:54:00 Test Item Value Reference Range Interpretation Comments BUN (test code = BUN) 10 7-22 N [facility] [place]WmmtqmpZOIDOTHNU0349-93-18 10:54:00 Test Item Value Reference Range Interpretation Comments Potassium Lvl (test code = Potassium 4.1 3.5-5.1 N Lvl) [facility] [place]ervilleRemjiwzSCQQSHQNJ7537-07-72 10:54:00 Test Item Value Reference Range Interpretation Comments Sodium Lvl (test code = Sodium Lvl) 141 135-145 N [facility] [place]ervilleWgubrnrGQMJQPAZD6067-78-63 10:54:00 Test Item Value Reference Range Interpretation Comments Glucose Lvl (test code = Glucose Lvl) 83 [facility] [place]ervilleDlxumpyKMCJOSJWE4601-47-93 10:54:00 Test Item Value Reference Range Interpretation Comments Calcium Lvl (test code = Calcium Lvl) 8.4 8.5-10.5 L [facility] [place]ervilleShurqsmPJFCECKFO9413-72-74 10:54:00 Test Item Value Reference Range Interpretation Comments AGAP (test code = AGAP) 14.1 10.0-20.0 N [facility] HospitalOzhkuncTJQCLRCDIC7474-73-34 10:54:00 Test Item Value Reference Range Interpretation Comments Hct (test code = Hct) 35.5 36.0-48.0 L [facility] HospitalItnngqaHHKRTBGRTP8295-80-88 10:54:00 Test Item Value Reference Range Interpretation Comments WBC (test code = WBC) 4.7 3.7-10.4 N [facility] HospitalOwtharnPRGLXWZMRF9783-73-04 10:54:00 Test Item Value Reference Range Interpretation Comments MCV (test code = MCV) 92.6 81.0-99.0 N [facility] HospitalKrzfichURUHOKJIQM5233-69-72 10:54:00 Test Item Value Reference Range Interpretation Comments MCH (test code = MCH) 31.4 pg 27.0-31.0 H [facility] HospitalMtocitfDHLKRYFKFR8589-10-92 10:54:00 Test Item Value Reference Range Interpretation Comments RBC (test code = RBC) 3.84 4.20-5.40 L [facility] HospitalWsribscSUMWZNENAM9014-56-43 10:54:00 Test Item Value Reference Range Interpretation Comments Hgb (test code = Hgb) 12.1 12.0-16.0 N [facility] HospitalKmtnbkpMUVTLRZWDO3234-29-16 10:54:00 Test Item Value Reference Range Interpretation Comments Platelet (test code = Platelet) 287 133-450 N [facility] HospitalKvwnqojNNIBXRXBOG4885-37-45 10:54:00 Test Item Value Reference Range Interpretation Comments RDW (test code = RDW) 12.7 11.5-14.5 N [facility] HospitalNhrovigFAQMMSUOQX9748-11-44 10:54:00 Test Item Value Reference Range Interpretation Comments MCHC (test code = MCHC) 33.9 32.0-36.0 N [facility] HospitalPfdidecUXPIPHFMKS3915-47-15 10:54:00 Test Item Value Reference Range Interpretation Comments MPV (test code = MPV) 7.2 7.4-10.4 L [facility] HospitalAitnnpjGYYGZYVHKP2397-32-38 10:54:00 Test Item Value Reference Range Interpretation Comments INR (test code = INR) 0.95 0.85-1.17 N [facility] HospitalGmlptlwBZBRLNSTBE2608-39-21 10:54:00 Test Item Value Reference Range Interpretation Comments PT (test code = PT) 12.7 s 12.0-14.7 N [facility] HospitalDwlhhwhVJYWOFASSQ9086-57-58 10:54:00 Test Item Value Reference Range Interpretation Comments PTT (test code = PTT) 28.5 s 22.9-35.8 N [facility] HospitalDdamwnwHDLEQAKWRK8962-43-76 10:54:00 Test Item Value Reference Range Interpretation Comments Eosinophils # (test code 0.1 See_Comment N [A utomated message] The = Eosinophils #) system whic h generated this result tra nsmitted reference range : <=0.5. The reference r leo was not used to int erpret this result as normal/abnormal . [facility] HospitalFjvrvguEBYBPTHVEO2514-40-29 10:54:00 Test Item Value Reference Range Interpretation Comments Basophils # (test code 0.0 See_Comment N [Aut omated message] The = Basophils #) system which generated this result tra nsmitted reference range : <=0.2. The reference r leo was not used to int erpret this result as normal/abnormal . [facility] HospitalTdksbueTFROSNWBQY5207-53-87 10:54:00 Test Item Value Reference Range Interpretation Comments Basophils (test code = 0.4 See_Comment N [Aut omated message] The Basophils) system which ge nerated this result tra nsmitted reference range : <=1.0. The reference r leo was not used to int erpret this result as normal/abnormal . [facility] HospitalIlammgfHNNWFLZHCC2645-34-16 10:54:00 Test Item Value Reference Range Interpretation Comments Segs-Bands # (test code = Segs-Bands #) 2.1 1.5-8.1 N [facility] HospitalIjijjdhHPNMPLRBFE3951-24-77 10:54:00 Test Item Value Reference Range Interpretation Comments Monocytes (test code = Monocytes) 9.0 2.0-12.0 N [facility] HospitalNgsmmndEUGKCJSSWH0258-07-97 10:54:00 Test Item Value Reference Range Interpretation Comments Eosinophils (test code = 2.4 See_Comment N [A utomated message] The Eosinophils) system which ge nerated this result tra nsmitted reference range : <=4.0. The reference r leo was not used to int erpret this result as normal/abnormal . [facility] HospitalOocltccSDFCAKAFNN6055-08-81 10:54:00 Test Item Value Reference Range Interpretation Comments Monocytes # (test code 0.4 See_Comment N [Aut omated message] The = Monocytes #) system which generated this result tra nsmitted reference range : <=0.8. The reference r leo was not used to int erpret this result as normal/abnormal . [facility] HospitalKzqjncjCPDGVQNUWU5551-80-89 10:54:00 Test Item Value Reference Range Interpretation Comments Lymphocytes # (test code = Lymphocytes 2.0 1.0-5.5 N #) [facility] HospitalWrjfqbqFUXOGAQJHD0640-08-53 10:54:00 Test Item Value Reference Range Interpretation Comments Lymphocytes (test code = Lymphocytes) 42.8 20.0-40.0 H [facility] HospitalClmapnyBODGPZSHJX7951-49-27 10:54:00 Test Item Value Reference Range Interpretation Comments Segs (test code = Segs) 45.4 45.0-75.0 N [facility]VjhpgvuLZFUVOIBE9974-16-24 10:54:00 Test Item Value Reference Range Interpretation Comments CO2 (test code = CO2) 27 24-32 N [facility] [place]PzrsupkKIDEKKYGV2487-39-25 10:54:00 Test Item Value Reference Range Interpretation Comments Chloride Lvl (test code = Chloride Lvl) 104 95-109 N [facility] [place]FlicozgMNPFAZGYT7006-40-22 10:54:00 Test Item Value Reference Range Interpretation Comments Creatinine Lvl (test code = Creatinine 0.5 0.5-1.4 N Lvl) [facility] [place]WkooknuIUJQZDUAU4142-82-04 10:54:00 Test Item Value Reference Range Interpretation Comments BUN (test code = BUN) 10 7-22 N [facility] [place]ervilleUpeqtujAMGEXIMLB8881-07-36 10:54:00 Test Item Value Reference Range Interpretation Comments Potassium Lvl (test code = Potassium 4.1 3.5-5.1 N Lvl) [facility] [place]QwqvafhCLTDADQFC7951-04-57 10:54:00 Test Item Value Reference Range Interpretation Comments Sodium Lvl (test code = Sodium Lvl) 141 135-145 N [facility] [place]ervilleIgduloyWDJXMEVAX9106-80-20 10:54:00 Test Item Value Reference Range Interpretation Comments Glucose Lvl (test code = Glucose Lvl) 83 [facility] [place]VgngirpNMWKLEFKR1620-74-82 10:54:00 Test Item Value Reference Range Interpretation Comments Calcium Lvl (test code = Calcium Lvl) 8.4 8.5-10.5 L [facility] [place]YivygvwSJLQDSLFG2963-89-99 10:54:00 Test Item Value Reference Range Interpretation Comments AGAP (test code = AGAP) 14.1 10.0-20.0 N [facility] HospitalPwsalkwSFMWAYUSXG9760-96-54 10:54:00 Test Item Value Reference Range Interpretation Comments Hct (test code = Hct) 35.5 36.0-48.0 L [facility] HospitalLmpbuuqFJUPDEZVHG4356-11-88 10:54:00 Test Item Value Reference Range Interpretation Comments WBC (test code = WBC) 4.7 3.7-10.4 N [facility] HospitalBnbrmfeOIPGAJYXDQ7480-24-46 10:54:00 Test Item Value Reference Range Interpretation Comments MCV (test code = MCV) 92.6 81.0-99.0 N [facility] HospitalVwxsetqBYFINWJJFC8055-63-46 10:54:00 Test Item Value Reference Range Interpretation Comments MCH (test code = MCH) 31.4 pg 27.0-31.0 H [facility] HospitalVfevpjhMKUCIWHQCQ3077-02-76 10:54:00 Test Item Value Reference Range Interpretation Comments RBC (test code = RBC) 3.84 4.20-5.40 L [facility] HospitalAdddegzLHOZFPJEXG3099-95-66 10:54:00 Test Item Value Reference Range Interpretation Comments Hgb (test code = Hgb) 12.1 12.0-16.0 N [facility] HospitalMhagkwiJGEJIELOSK2015-05-40 10:54:00 Test Item Value Reference Range Interpretation Comments Platelet (test code = Platelet) 287 133-450 N [facility] HospitalBftdwkuPRVJLKHLUK6811-88-35 10:54:00 Test Item Value Reference Range Interpretation Comments RDW (test code = RDW) 12.7 11.5-14.5 N [facility] HospitalRfspdmqJKUTBVBVYM2063-78-80 10:54:00 Test Item Value Reference Range Interpretation Comments MCHC (test code = MCHC) 33.9 32.0-36.0 N [facility] HospitalTfjigekFUBSQJSNYL1655-96-09 10:54:00 Test Item Value Reference Range Interpretation Comments MPV (test code = MPV) 7.2 7.4-10.4 L [facility] HospitalVmpmwcfXRWZZYSIQH5583-11-28 10:54:00 Test Item Value Reference Range Interpretation Comments INR (test code = INR) 0.95 0.85-1.17 N [facility] HospitalPnftexeLCJPQITTBE4048-32-44 10:54:00 Test Item Value Reference Range Interpretation Comments PT (test code = PT) 12.7 s 12.0-14.7 N [facility] HospitalDcwlrgoPJYSOKMLAW5839-99-12 10:54:00 Test Item Value Reference Range Interpretation Comments PTT (test code = PTT) 28.5 s 22.9-35.8 N [facility] HospitalEbdnnqjCBISAOHJKO7235-22-42 10:54:00 Test Item Value Reference Range Interpretation Comments Eosinophils # (test code 0.1 See_Comment N [A utomated message] The = Eosinophils #) system wh h generated this result tra nsmitted reference range : <=0.5. The reference r leo was not used to int erpret this result as normal/abnormal . [facility] HospitalWgrtnwrGZHXNLFNLI9454-44-11 10:54:00 Test Item Value Reference Range Interpretation Comments Basophils # (test code 0.0 See_Comment N [Aut omated message] The = Basophils #) system which generated this result tra nsmitted reference range : <=0.2. The reference r leo was not used to int erpret this result as normal/abnormal . [facility] HospitalYddcmcxXIZMUXEBML6917-21-90 10:54:00 Test Item Value Reference Range Interpretation Comments Basophils (test code = 0.4 See_Comment N [Aut omated message] The Basophils) system which ge nerated this result tra nsmitted reference range : <=1.0. The reference r leo was not used to int erpret this result as normal/abnormal . [facility] HospitalTgyffczRUDMESZAPB1775-56-18 10:54:00 Test Item Value Reference Range Interpretation Comments Segs-Bands # (test code = Segs-Bands #) 2.1 1.5-8.1 N [facility] HospitalImxseyaEPUUGYTBPC1833-45-96 10:54:00 Test Item Value Reference Range Interpretation Comments Monocytes (test code = Monocytes) 9.0 2.0-12.0 N [facility] HospitalHgbwiodBIZERCKPIA1730-83-95 10:54:00 Test Item Value Reference Range Interpretation Comments Eosinophils (test code = 2.4 See_Comment N [A utomated message] The Eosinophils) system which ge nerated this result tra nsmitted reference range : <=4.0. The reference r leo was not used to int erpret this result as normal/abnormal . [facility] HospitalUfcxzfyUHYIUFAERD3593-94-34 10:54:00 Test Item Value Reference Range Interpretation Comments Monocytes # (test code 0.4 See_Comment N [Aut omated message] The = Monocytes #) system which generated this result tra nsmitted reference range : <=0.8. The reference r leo was not used to int erpret this result as normal/abnormal . [facility] HospitalZdkvqsiGHNMMBQXKU1879-27-30 10:54:00 Test Item Value Reference Range Interpretation Comments Lymphocytes # (test code = Lymphocytes 2.0 1.0-5.5 N #) [facility] HospitalTxxugbhFSRSOEWOGL5141-71-48 10:54:00 Test Item Value Reference Range Interpretation Comments Lymphocytes (test code = Lymphocytes) 42.8 20.0-40.0 H [facility] HospitalGocucxmNFNYWQWBEU5094-71-61 10:54:00 Test Item Value Reference Range Interpretation Comments Segs (test code = Segs) 45.4 45.0-75.0 N [facility]ervilleRupsvaoHDOZYUCNN8409-56-07 10:54:00 Test Item Value Reference Range Interpretation Comments CO2 (test code = CO2) 27 24-32 N [facility] [place]PwyfbaaIWXOXCAVV9023-76-68 10:54:00 Test Item Value Reference Range Interpretation Comments Chloride Lvl (test code = Chloride Lvl) 104 95-109 N [facility] [place]ZmldqfxKPYPMIRJJ3799-84-87 10:54:00 Test Item Value Reference Range Interpretation Comments Creatinine Lvl (test code = Creatinine 0.5 0.5-1.4 N Lvl) [facility] [place]EbgzyttHSSEHBQTX1608-82-11 10:54:00 Test Item Value Reference Range Interpretation Comments BUN (test code = BUN) 10 7-22 N [facility] [place]VmjjcdeTDUKOPISG2336-75-71 10:54:00 Test Item Value Reference Range Interpretation Comments Potassium Lvl (test code = Potassium 4.1 3.5-5.1 N Lvl) [facility] [place]EftkaqaVXGRZVCTG3826-63-78 10:54:00 Test Item Value Reference Range Interpretation Comments Sodium Lvl (test code = Sodium Lvl) 141 135-145 N [facility] [place]ervilleMsnrcdnKEMHOKXGD8316-35-42 10:54:00 Test Item Value Reference Range Interpretation Comments Glucose Lvl (test code = Glucose Lvl) 83 [facility] [place]ervilleGemxmqpTMUEFHRGU2784-74-48 10:54:00 Test Item Value Reference Range Interpretation Comments Calcium Lvl (test code = Calcium Lvl) 8.4 8.5-10.5 L [facility] [place]SldkeyhDLPCUYIYX0016-05-28 10:54:00 Test Item Value Reference Range Interpretation Comments AGAP (test code = AGAP) 14.1 10.0-20.0 N [facility] HospitalNporaouCZMZRWHVGT0311-01-46 10:54:00 Test Item Value Reference Range Interpretation Comments Hct (test code = Hct) 35.5 36.0-48.0 L [facility] HospitalZzormvuMLDXMYHVIM5670-28-74 10:54:00 Test Item Value Reference Range Interpretation Comments WBC (test code = WBC) 4.7 3.7-10.4 N [facility] HospitalSbrjtneXERDVEDFNS4612-59-49 10:54:00 Test Item Value Reference Range Interpretation Comments MCV (test code = MCV) 92.6 81.0-99.0 N [facility] HospitalZxcdxecWWBKYZHRSB0528-77-30 10:54:00 Test Item Value Reference Range Interpretation Comments MCH (test code = MCH) 31.4 pg 27.0-31.0 H [facility] HospitalMfjvnbpCATZBNPASG1115-05-82 10:54:00 Test Item Value Reference Range Interpretation Comments RBC (test code = RBC) 3.84 4.20-5.40 L [facility] [facility]IefydjkNMCSPMEIOD0065-87-93 10:54:00 Test Item Value Reference Range Interpretation Comments Hgb (test code = Hgb) 12.1 12.0-16.0 N [facility] HospitalPstcjvaALQFMYPUBQ2259-73-14 10:54:00 Test Item Value Reference Range Interpretation Comments Platelet (test code = Platelet) 287 133-450 N [facility] HospitalSukghjoTWNIIOUNWN0342-69-38 10:54:00 Test Item Value Reference Range Interpretation Comments RDW (test code = RDW) 12.7 11.5-14.5 N [facility] HospitalVxhtmmtAGRYSKVLYB7698-13-91 10:54:00 Test Item Value Reference Range Interpretation Comments MCHC (test code = MCHC) 33.9 32.0-36.0 N [facility] HospitalGhpjfauSRLVAIMGED9258-72-28 10:54:00 Test Item Value Reference Range Interpretation Comments MPV (test code = MPV) 7.2 7.4-10.4 L [facility] HospitalAjojvnjCYBVXZQHZL7591-55-05 10:54:00 Test Item Value Reference Range Interpretation Comments INR (test code = INR) 0.95 0.85-1.17 N [facility] HospitalEhssftrVWWKANIYGF1963-03-85 10:54:00 Test Item Value Reference Range Interpretation Comments PT (test code = PT) 12.7 s 12.0-14.7 N [facility] HospitalMzwjupwJCWZUTHJJF1413-80-74 10:54:00 Test Item Value Reference Range Interpretation Comments PTT (test code = PTT) 28.5 s 22.9-35.8 N [facility] HospitalZjjeaqrOAQTTKSZKS5593-00-30 10:54:00 Test Item Value Reference Range Interpretation Comments Eosinophils # (test code 0.1 See_Comment N [A utomated message] The = Eosinophils #) system whic h generated this result tra nsmitted reference range : <=0.5. The reference r leo was not used to int erpret this result as normal/abnormal . [facility] HospitalUmxwhnxITQTNNJGQQ2346-61-16 10:54:00 Test Item Value Reference Range Interpretation Comments Basophils # (test code 0.0 See_Comment N [Aut omated message] The = Basophils #) system which generated this result tra nsmitted reference range : <=0.2. The reference r leo was not used to int erpret this result as normal/abnormal . [facility] HospitalCdbslipAPHSJCGPTA8561-50-51 10:54:00 Test Item Value Reference Range Interpretation Comments Basophils (test code = 0.4 See_Comment N [Aut omated message] The Basophils) system which ge nerated this result tra nsmitted reference range : <=1.0. The reference r leo was not used to int erpret this result as normal/abnormal . [facility] HospitalLeqqqlzIQSGBYVTDU7056-32-95 10:54:00 Test Item Value Reference Range Interpretation Comments Segs-Bands # (test code = Segs-Bands #) 2.1 1.5-8.1 N [facility] HospitalVlthnzlQKOHKBZFWE7418-53-41 10:54:00 Test Item Value Reference Range Interpretation Comments Monocytes (test code = Monocytes) 9.0 2.0-12.0 N [facility] HospitalMdowckzZFTXFUSTEA9240-56-96 10:54:00 Test Item Value Reference Range Interpretation Comments Eosinophils (test code = 2.4 See_Comment N [A utomated message] The Eosinophils) system which ge nerated this result tra nsmitted reference range : <=4.0. The reference r leo was not used to int erpret this result as normal/abnormal . [facility] HospitalHptonzvPSHMTKWVNA7673-45-69 10:54:00 Test Item Value Reference Range Interpretation Comments Monocytes # (test code 0.4 See_Comment N [Aut omated message] The = Monocytes #) system which generated this result tra nsmitted reference range : <=0.8. The reference r leo was not used to int erpret this result as normal/abnormal . [facility] HospitalJnvfmegHURSVAVXPX7846-30-52 10:54:00 Test Item Value Reference Range Interpretation Comments Lymphocytes # (test code = Lymphocytes 2.0 1.0-5.5 N #) [facility] HospitalYqyomvbNFUSTEGUZC9067-25-83 10:54:00 Test Item Value Reference Range Interpretation Comments Lymphocytes (test code = Lymphocytes) 42.8 20.0-40.0 H [facility] HospitalRkrenpkAZKIKCXESR7246-64-42 10:54:00 Test Item Value Reference Range Interpretation Comments Segs (test code = Segs) 45.4 45.0-75.0 N [facility]BmqakbcEOPFHTQMB3578-49-98 10:54:00 Test Item Value Reference Range Interpretation Comments CO2 (test code = CO2) 27 24-32 N [facility] [place]McgztmsKWUFKMROM6609-34-34 10:54:00 Test Item Value Reference Range Interpretation Comments Chloride Lvl (test code = Chloride Lvl) 104 95-109 N [facility] [place]QrvpnvcGZGOSFBNO3102-10-54 10:54:00 Test Item Value Reference Range Interpretation Comments Creatinine Lvl (test code = Creatinine 0.5 0.5-1.4 N Lvl) [facility] [place]ZconzroRMKXMIVGY8242-81-64 10:54:00 Test Item Value Reference Range Interpretation Comments BUN (test code = BUN) 10 7-22 N [facility] [place]RrvqcdcLFIVSVLLN9652-78-18 10:54:00 Test Item Value Reference Range Interpretation Comments Potassium Lvl (test code = Potassium 4.1 3.5-5.1 N Lvl) [facility] [place]ervilleLyjbyxeZZTHCABRR3619-84-09 10:54:00 Test Item Value Reference Range Interpretation Comments Sodium Lvl (test code = Sodium Lvl) 141 135-145 N [facility] [place]GxgbacpWSZWALYPR1232-92-36 10:54:00 Test Item Value Reference Range Interpretation Comments Glucose Lvl (test code = Glucose Lvl) 83 [facility] [place]ervilleHlelchlPSVXEWXXQ2595-52-29 10:54:00 Test Item Value Reference Range Interpretation Comments Calcium Lvl (test code = Calcium Lvl) 8.4 8.5-10.5 L [facility] [place]ervilleOszhegxXITGYUMDR1730-36-12 10:54:00 Test Item Value Reference Range Interpretation Comments AGAP (test code = AGAP) 14.1 10.0-20.0 N [facility] HospitalIcqaoaxZXKCVHOEKM3232-13-66 10:54:00 Test Item Value Reference Range Interpretation Comments Hct (test code = Hct) 35.5 36.0-48.0 L [facility] HospitalYkvpqeaSZIWSJCMHQ4884-54-09 10:54:00 Test Item Value Reference Range Interpretation Comments WBC (test code = WBC) 4.7 3.7-10.4 N [facility] HospitalEzlpearJENREEONTE1765-31-97 10:54:00 Test Item Value Reference Range Interpretation Comments MCV (test code = MCV) 92.6 81.0-99.0 N [facility] HospitalChvhmghACXVFFXWHQ8996-28-91 10:54:00 Test Item Value Reference Range Interpretation Comments MCH (test code = MCH) 31.4 pg 27.0-31.0 H [facility] HospitalUueykruJGKEEZWMIJ6892-54-29 10:54:00 Test Item Value Reference Range Interpretation Comments RBC (test code = RBC) 3.84 4.20-5.40 L [facility] HospitalLpyeyzkJSUGLIVSYO7449-36-49 10:54:00 Test Item Value Reference Range Interpretation Comments Hgb (test code = Hgb) 12.1 12.0-16.0 N [facility] HospitalBjsgzbxDICBFQTXRS2394-27-85 10:54:00 Test Item Value Reference Range Interpretation Comments Platelet (test code = Platelet) 287 133-450 N [facility] HospitalUvwrxlyWMMIUHROZR0652-94-09 10:54:00 Test Item Value Reference Range Interpretation Comments RDW (test code = RDW) 12.7 11.5-14.5 N [facility] HospitalUwfndroJODIFHNJXW4073-44-45 10:54:00 Test Item Value Reference Range Interpretation Comments MCHC (test code = MCHC) 33.9 32.0-36.0 N [facility] HospitalNfodeskQVHXDRKZJO9436-45-39 10:54:00 Test Item Value Reference Range Interpretation Comments MPV (test code = MPV) 7.2 7.4-10.4 L [facility] HospitalCfekdlsHNRFACMOQD8559-99-97 10:54:00 Test Item Value Reference Range Interpretation Comments INR (test code = INR) 0.95 0.85-1.17 N [facility] HospitalJyjufseNZHBMHIXYN7990-12-22 10:54:00 Test Item Value Reference Range Interpretation Comments PT (test code = PT) 12.7 s 12.0-14.7 N [facility] HospitalQohsurkQBTGZFOHJM5270-20-02 10:54:00 Test Item Value Reference Range Interpretation Comments PTT (test code = PTT) 28.5 s 22.9-35.8 N [facility] HospitalOsjmediGOPKJRDQJL3137-80-67 10:54:00 Test Item Value Reference Range Interpretation Comments Eosinophils # (test code 0.1 See_Comment N [A utomated message] The = Eosinophils #) system whic h generated this result tra nsmitted reference range : <=0.5. The reference r leo was not used to int erpret this result as normal/abnormal . [facility] HospitalJldxuwrHERJYPZVSS1445-82-84 10:54:00 Test Item Value Reference Range Interpretation Comments Basophils # (test code 0.0 See_Comment N [Aut omated message] The = Basophils #) system which generated this result tra nsmitted reference range : <=0.2. The reference r leo was not used to int erpret this result as normal/abnormal . [facility] HospitalBlpfxmgMSVNLMMNCJ7436-02-01 10:54:00 Test Item Value Reference Range Interpretation Comments Basophils (test code = 0.4 See_Comment N [Aut omated message] The Basophils) system which ge nerated this result tra nsmitted reference range : <=1.0. The reference r leo was not used to int erpret this result as normal/abnormal . [facility] HospitalIhjaojzLXVDMCAPVZ2731-38-75 10:54:00 Test Item Value Reference Range Interpretation Comments Segs-Bands # (test code = Segs-Bands #) 2.1 1.5-8.1 N [facility] HospitalKijuwqwPIYAJCYGKO8119-07-13 10:54:00 Test Item Value Reference Range Interpretation Comments Monocytes (test code = Monocytes) 9.0 2.0-12.0 N [facility] HospitalRepaccvNTZSNHFBKR2191-55-81 10:54:00 Test Item Value Reference Range Interpretation Comments Eosinophils (test code = 2.4 See_Comment N [A utomated message] The Eosinophils) system which ge nerated this result tra nsmitted reference range : <=4.0. The reference r leo was not used to int erpret this result as normal/abnormal . [facility] HospitalBnwuxayISDZBCDTYM0318-60-77 10:54:00 Test Item Value Reference Range Interpretation Comments Monocytes # (test code 0.4 See_Comment N [Aut omated message] The = Monocytes #) system which generated this result tra nsmitted reference range : <=0.8. The reference r leo was not used to int erpret this result as normal/abnormal . [facility] HospitalIojnhyuZLWAVCUZWO2668-30-85 10:54:00 Test Item Value Reference Range Interpretation Comments Lymphocytes # (test code = Lymphocytes 2.0 1.0-5.5 N #) [facility] HospitalMzakhpzVZYBTQADPL0717-53-39 10:54:00 Test Item Value Reference Range Interpretation Comments Lymphocytes (test code = Lymphocytes) 42.8 20.0-40.0 H [facility] HospitalSkquolnLRYNUPJKFJ7975-11-13 10:54:00 Test Item Value Reference Range Interpretation Comments Segs (test code = Segs) 45.4 45.0-75.0 N [facility]YbpppghEIWZUQXUA9252-68-56 10:02:00 Test Item Value Reference Range Interpretation Comments Chloride Lvl (test code = Chloride Lvl) 105 95-109 N [facility] [place]SjbzuvhBYTGXTQYI1992-64-14 10:02:00 Test Item Value Reference Range Interpretation Comments Potassium Lvl (test code = Potassium 4.1 3.5-5.1 N Lvl) [facility] [place]ervilleDuegtkxRPUALVRQI6783-89-87 10:02:00 Test Item Value Reference Range Interpretation Comments Sodium Lvl (test code = Sodium Lvl) 143 135-145 N [facility] [place]ZxyihjvHKYWBJEEP8561-72-71 10:02:00 Test Item Value Reference Range Interpretation Comments CO2 (test code = CO2) 29 24-32 N [facility] [place]VkqdokoYQYMFACSE0675-80-29 10:02:00 Test Item Value Reference Range Interpretation Comments Calcium Lvl (test code = Calcium Lvl) 8.7 8.5-10.5 N [facility] [place]TayywodXJZCDAAYH0264-74-78 10:02:00 Test Item Value Reference Range Interpretation Comments BUN (test code = BUN) 6 7-22 L [facility] [place]JfnzkivVWFQLVTEL8150-02-65 10:02:00 Test Item Value Reference Range Interpretation Comments Creatinine Lvl (test code = Creatinine 0.6 0.5-1.4 N Lvl) [facility]TgehomqKKHQSUQLF5908-28-97 10:02:00 Test Item Value Reference Range Interpretation Comments Glucose Lvl (test code = Glucose Lvl) 118 [facility] [place]ervilleKgooomfEMFDNXLQC8768-91-75 10:02:00 Test Item Value Reference Range Interpretation Comments AGAP (test code = AGAP) 13.1 10.0-20.0 N [facility] HospitalXaiixehFBENNHVOQO6852-82-65 10:02:00 Test Item Value Reference Range Interpretation Comments Basophils # (test code 0.0 See_Comment N [Aut omated message] The = Basophils #) system which generated this result tra nsmitted reference range : <=0.2. The reference r leo was not used to int erpret this result as normal/abnormal . [facility] HospitalSoylqliBFGMQRRWKX7857-70-65 10:02:00 Test Item Value Reference Range Interpretation Comments Monocytes # (test code 0.3 See_Comment N [Aut omated message] The = Monocytes #) system which generated this result tra nsmitted reference range : <=0.8. The reference r leo was not used to int erpret this result as normal/abnormal . [facility] HospitalWlulvyqCRAQRUDFNY3395-11-21 10:02:00 Test Item Value Reference Range Interpretation Comments Eosinophils # (test code 0.1 See_Comment N [A utomated message] The = Eosinophils #) system whic h generated this result tra nsmitted reference range : <=0.5. The reference r leo was not used to int erpret this result as normal/abnormal . [facility] HospitalJzjkaccPURPZJHRZI9164-72-89 10:02:00 Test Item Value Reference Range Interpretation Comments Segs-Bands # (test code = Segs-Bands #) 2.8 1.5-8.1 N [facility] HospitalNwcnnpaAUHFYJIZRV7694-54-30 10:02:00 Test Item Value Reference Range Interpretation Comments Lymphocytes # (test code = Lymphocytes 1.7 1.0-5.5 N #) [facility] HospitalVlfymgePBMRCACZPF5838-39-73 10:02:00 Test Item Value Reference Range Interpretation Comments Basophils (test code = 0.6 See_Comment N [Aut omated message] The Basophils) system which ge nerated this result tra nsmitted reference range : <=1.0. The reference r leo was not used to int erpret this result as normal/abnormal . [facility] HospitalUbkomhvMVHJSPXDKB2041-96-79 10:02:00 Test Item Value Reference Range Interpretation Comments Monocytes (test code = Monocytes) 6.9 2.0-12.0 N [facility] HospitalSeqbjylXRSXHOHENB4936-59-80 10:02:00 Test Item Value Reference Range Interpretation Comments Eosinophils (test code = 2.0 See_Comment N [A utomated message] The Eosinophils) system which ge nerated this result tra nsmitted reference range : <=4.0. The reference r leo was not used to int erpret this result as normal/abnormal . [facility] HospitalWjqyokiMQEKOHZFEF8220-30-32 10:02:00 Test Item Value Reference Range Interpretation Comments Segs (test code = Segs) 55.8 45.0-75.0 N [facility] HospitalMjisxbjWECNWQQCVW1688-31-64 10:02:00 Test Item Value Reference Range Interpretation Comments Lymphocytes (test code = Lymphocytes) 34.7 20.0-40.0 N [facility] HospitalVvjjhirKVDHSIBSJC4690-14-81 10:02:00 Test Item Value Reference Range Interpretation Comments PTT (test code = PTT) 32.2 s 22.9-35.8 N [facility] HospitalPtdwsjmICDVZXUGRU3528-84-81 10:02:00 Test Item Value Reference Range Interpretation Comments PT (test code = PT) 13.3 s 12.0-14.7 N [facility] HospitalPgkuhmwZZFTOTQTVQ7629-46-38 10:02:00 Test Item Value Reference Range Interpretation Comments INR (test code = INR) 1.01 0.85-1.17 N [facility] HospitalIakrhplJMSFJOVCJE6263-55-24 10:02:00 Test Item Value Reference Range Interpretation Comments Hct (test code = Hct) 27.5 36.0-48.0 L [facility] HospitalDqltlpyNOJOIBHROA0600-84-73 10:02:00 Test Item Value Reference Range Interpretation Comments RBC (test code = RBC) 3.34 4.20-5.40 L [facility] HospitalZsedtinRYRNYEYURU8540-06-34 10:02:00 Test Item Value Reference Range Interpretation Comments Hgb (test code = Hgb) 9.7 12.0-16.0 L [facility] HospitalZcfnhilHQSHAZFHXJ3846-06-79 10:02:00 Test Item Value Reference Range Interpretation Comments WBC (test code = WBC) 5.0 3.7-10.4 N [facility] HospitalUzobyqiFGCNIMCQFT4496-63-92 10:02:00 Test Item Value Reference Range Interpretation Comments MPV (test code = MPV) 9.2 7.4-10.4 N [facility] HospitalSapnywpCCSISYQDVV2923-55-03 10:02:00 Test Item Value Reference Range Interpretation Comments Platelet (test code = Platelet) 240 133-450 N [facility] HospitalFuuiwpzNNUMECXPQV3532-89-01 10:02:00 Test Item Value Reference Range Interpretation Comments RDW (test code = RDW) 14.3 11.5-14.5 N [facility] HospitalEyfzljgGVKKPJGETY3574-28-69 10:02:00 Test Item Value Reference Range Interpretation Comments MCHC (test code = MCHC) 35.2 32.0-36.0 N [facility] HospitalJbzaixbTXROVBLVMH3297-53-71 10:02:00 Test Item Value Reference Range Interpretation Comments MCH (test code = MCH) 28.9 pg 27.0-31.0 N [facility] HospitalNozimisYTKXZGGQHG2834-17-19 10:02:00 Test Item Value Reference Range Interpretation Comments MCV (test code = MCV) 82.1 81.0-99.0 N [facility]PjyrrmzAJXOZJLUV1075-88-46 10:02:00 Test Item Value Reference Range Interpretation Comments Chloride Lvl (test code = Chloride Lvl) 105 95-109 N [facility] [place]ervilleUfablycNTAJTEYPU5673-40-62 10:02:00 Test Item Value Reference Range Interpretation Comments Potassium Lvl (test code = Potassium 4.1 3.5-5.1 N Lvl) [facility] [place]LvbjkdnYXCKDPQTR5555-51-15 10:02:00 Test Item Value Reference Range Interpretation Comments Sodium Lvl (test code = Sodium Lvl) 143 135-145 N [facility] [place]GurpmiuUCWAQGQQR5846-63-82 10:02:00 Test Item Value Reference Range Interpretation Comments CO2 (test code = CO2) 29 24-32 N [facility] [place]ervilleCpulrrzCSLJRKHQY5388-20-76 10:02:00 Test Item Value Reference Range Interpretation Comments Calcium Lvl (test code = Calcium Lvl) 8.7 8.5-10.5 N [facility] [place]MvvsrmmTQHATOTMT6281-44-60 10:02:00 Test Item Value Reference Range Interpretation Comments BUN (test code = BUN) 6 7-22 L [facility] [place]ervilleFpyladzISSNROJCK7989-96-62 10:02:00 Test Item Value Reference Range Interpretation Comments Creatinine Lvl (test code = Creatinine 0.6 0.5-1.4 N Lvl) [facility]DvbpbmyQTTBNYEKS2526-53-09 10:02:00 Test Item Value Reference Range Interpretation Comments Glucose Lvl (test code = Glucose Lvl) 118 [facility] [place]EedffqyTFCMWWKZK7561-91-03 10:02:00 Test Item Value Reference Range Interpretation Comments AGAP (test code = AGAP) 13.1 10.0-20.0 N [facility] HospitalFdazjgzMRJSLTKBKU9519-74-57 10:02:00 Test Item Value Reference Range Interpretation Comments Basophils # (test code 0.0 See_Comment N [Aut omated message] The = Basophils #) system which generated this result tra nsmitted reference range : <=0.2. The reference r leo was not used to int erpret this result as normal/abnormal . [facility] HospitalNgdwrfdJVFYLLLEQB0009-21-79 10:02:00 Test Item Value Reference Range Interpretation Comments Monocytes # (test code 0.3 See_Comment N [Aut omated message] The = Monocytes #) system which generated this result tra nsmitted reference range : <=0.8. The reference r leo was not used to int erpret this result as normal/abnormal . [facility] HospitalRnujviqKEKKUHEJKI5435-21-81 10:02:00 Test Item Value Reference Range Interpretation Comments Eosinophils # (test code 0.1 See_Comment N [A utomated message] The = Eosinophils #) system whic h generated this result tra nsmitted reference range : <=0.5. The reference r leo was not used to int erpret this result as normal/abnormal . [facility] HospitalWrgvlefHLDNDALTNW0285-04-11 10:02:00 Test Item Value Reference Range Interpretation Comments Segs-Bands # (test code = Segs-Bands #) 2.8 1.5-8.1 N [facility] HospitalSsedeinFNZQYRZRUA5189-31-59 10:02:00 Test Item Value Reference Range Interpretation Comments Lymphocytes # (test code = Lymphocytes 1.7 1.0-5.5 N #) [facility] HospitalSojaomrRZEAISTNKM4885-00-29 10:02:00 Test Item Value Reference Range Interpretation Comments Basophils (test code = 0.6 See_Comment N [Aut omated message] The Basophils) system which ge nerated this result tra nsmitted reference range : <=1.0. The reference r leo was not used to int erpret this result as normal/abnormal . [facility] HospitalMvfrvznTDPQTQYJAO5458-24-44 10:02:00 Test Item Value Reference Range Interpretation Comments Monocytes (test code = Monocytes) 6.9 2.0-12.0 N [facility] HospitalYhdxwhxYYXCCOSBIC4834-81-36 10:02:00 Test Item Value Reference Range Interpretation Comments Eosinophils (test code = 2.0 See_Comment N [A utomated message] The Eosinophils) system which ge nerated this result tra nsmitted reference range : <=4.0. The reference r leo was not used to int erpret this result as normal/abnormal . [facility] HospitalLxbzwnyRCLVURXYPF3567-39-46 10:02:00 Test Item Value Reference Range Interpretation Comments Segs (test code = Segs) 55.8 45.0-75.0 N [facility] HospitalNxpspxfZVFBPTILXA6053-16-35 10:02:00 Test Item Value Reference Range Interpretation Comments Lymphocytes (test code = Lymphocytes) 34.7 20.0-40.0 N [facility] HospitalEpprjjdGATLRPRAJZ0625-00-56 10:02:00 Test Item Value Reference Range Interpretation Comments PTT (test code = PTT) 32.2 s 22.9-35.8 N [facility] HospitalHsuowmhNHXAQQBFFW4254-70-07 10:02:00 Test Item Value Reference Range Interpretation Comments PT (test code = PT) 13.3 s 12.0-14.7 N [facility] HospitalWzlrsxlAYOZXTZNWZ7874-41-54 10:02:00 Test Item Value Reference Range Interpretation Comments INR (test code = INR) 1.01 0.85-1.17 N [facility] HospitalMzvkacrOPNGUQSXEJ1028-62-28 10:02:00 Test Item Value Reference Range Interpretation Comments Hct (test code = Hct) 27.5 36.0-48.0 L [facility] HospitalQprrdvhSLTCHSJTVU0509-21-18 10:02:00 Test Item Value Reference Range Interpretation Comments RBC (test code = RBC) 3.34 4.20-5.40 L [facility] HospitalRgknxomUPYBRLQEJT4824-20-60 10:02:00 Test Item Value Reference Range Interpretation Comments Hgb (test code = Hgb) 9.7 12.0-16.0 L [facility] HospitalDbxiuknDJVMXAYGHU9379-92-02 10:02:00 Test Item Value Reference Range Interpretation Comments WBC (test code = WBC) 5.0 3.7-10.4 N [facility] HospitalZpfudxxQSAHKVOQNI7909-84-12 10:02:00 Test Item Value Reference Range Interpretation Comments MPV (test code = MPV) 9.2 7.4-10.4 N [facility] HospitalDcoubvvCFRWJIVYSL4468-42-90 10:02:00 Test Item Value Reference Range Interpretation Comments Platelet (test code = Platelet) 240 133-450 N [facility] HospitalUcdsiizIIGVJOBLBA6375-03-07 10:02:00 Test Item Value Reference Range Interpretation Comments RDW (test code = RDW) 14.3 11.5-14.5 N [facility] HospitalCjwdaymPBRHFDVOQM8453-02-35 10:02:00 Test Item Value Reference Range Interpretation Comments MCHC (test code = MCHC) 35.2 32.0-36.0 N [facility] HospitalTgvyazlNHYLLKLGDD6568-92-32 10:02:00 Test Item Value Reference Range Interpretation Comments MCH (test code = MCH) 28.9 pg 27.0-31.0 N [facility] HospitalWqjcvgfNGWADWIFJQ4372-20-72 10:02:00 Test Item Value Reference Range Interpretation Comments MCV (test code = MCV) 82.1 81.0-99.0 N [facility]KvmqbegKXGKRSMOX0678-14-74 10:02:00 Test Item Value Reference Range Interpretation Comments Chloride Lvl (test code = Chloride Lvl) 105 95-109 N [facility] [place]TrfwdarROZIUXHIF7429-48-49 10:02:00 Test Item Value Reference Range Interpretation Comments Potassium Lvl (test code = Potassium 4.1 3.5-5.1 N Lvl) [facility] [place]AwwfkorAGFYUBTYZ2933-94-01 10:02:00 Test Item Value Reference Range Interpretation Comments Sodium Lvl (test code = Sodium Lvl) 143 135-145 N [facility] [place]ervilleCuityevHLMSWXTFJ6196-28-32 10:02:00 Test Item Value Reference Range Interpretation Comments CO2 (test code = CO2) 29 24-32 N [facility] [place]tt[place]afpLESZFPEZN9577[place]86-15 10:02:00 Test Item Value Reference Range Interpretation Comments Calcium Lvl (test code = Calcium Lvl) 8.7 8.5-10.5 N [facility] [place]MwkldbvOMRNDQCHX0087-87-26 10:02:00 Test Item Value Reference Range Interpretation Comments BUN (test code = BUN) 6 7-22 L [facility] [place]WxouxjeVSFDBVKSV0660-71-41 10:02:00 Test Item Value Reference Range Interpretation Comments Creatinine Lvl (test code = Creatinine 0.6 0.5-1.4 N Lvl) [facility] [place]NnsllukMJFPZUJKL3499-77-41 10:02:00 Test Item Value Reference Range Interpretation Comments Glucose Lvl (test code = Glucose Lvl) 118 [facility] [place]IrxptunJNJXEKFIR3368-93-53 10:02:00 Test Item Value Reference Range Interpretation Comments AGAP (test code = AGAP) 13.1 10.0-20.0 N [facility] HospitalHirnvbcSPXCSEHJZG1731-00-82 10:02:00 Test Item Value Reference Range Interpretation Comments Basophils # (test code 0.0 See_Comment N [Aut omated message] The = Basophils #) system which generated this result tra nsmitted reference range : <=0.2. The reference r leo was not used to int erpret this result as normal/abnormal . [facility] HospitalZflreqzANKATZIWHM3339-15-56 10:02:00 Test Item Value Reference Range Interpretation Comments Monocytes # (test code 0.3 See_Comment N [Aut omated message] The = Monocytes #) system which generated this result tra nsmitted reference range : <=0.8. The reference r leo was not used to int erpret this result as normal/abnormal . [facility] HospitalClrqooyHUWSSRDXFG3311-42-58 10:02:00 Test Item Value Reference Range Interpretation Comments Eosinophils # (test code 0.1 See_Comment N [A utomated message] The = Eosinophils #) system whic h generated this result tra nsmitted reference range : <=0.5. The reference r leo was not used to int erpret this result as normal/abnormal . [facility] HospitalEjqhmaaNKUQMAPXNY9647-27-36 10:02:00 Test Item Value Reference Range Interpretation Comments Segs-Bands # (test code = Segs-Bands #) 2.8 1.5-8.1 N [facility] HospitalZmoxbcjFRWJFTYEHH9653-36-21 10:02:00 Test Item Value Reference Range Interpretation Comments Lymphocytes # (test code = Lymphocytes 1.7 1.0-5.5 N #) [facility] HospitalOvqocvoJEAEISTOXI0261-91-46 10:02:00 Test Item Value Reference Range Interpretation Comments Basophils (test code = 0.6 See_Comment N [Aut omated message] The Basophils) system which ge nerated this result tra nsmitted reference range : <=1.0. The reference r leo was not used to int erpret this result as normal/abnormal . [facility] HospitalEijndrlBJJUZHXCRT0765-77-68 10:02:00 Test Item Value Reference Range Interpretation Comments Monocytes (test code = Monocytes) 6.9 2.0-12.0 N [facility] HospitalBfphlemXOGYYBFPLK7179-59-03 10:02:00 Test Item Value Reference Range Interpretation Comments Eosinophils (test code = 2.0 See_Comment N [A utomated message] The Eosinophils) system which ge nerated this result tra nsmitted reference range : <=4.0. The reference r leo was not used to int erpret this result as normal/abnormal . [facility] HospitalGnyqzpbALLEUIGKTW9824-82-82 10:02:00 Test Item Value Reference Range Interpretation Comments Segs (test code = Segs) 55.8 45.0-75.0 N [facility] HospitalKdofnvsTWBWHKFTAD5642-54-64 10:02:00 Test Item Value Reference Range Interpretation Comments Lymphocytes (test code = Lymphocytes) 34.7 20.0-40.0 N [facility] HospitalEuiiamySVBWTTVRHQ5971-63-51 10:02:00 Test Item Value Reference Range Interpretation Comments PTT (test code = PTT) 32.2 s 22.9-35.8 N [facility] HospitalZhtlmbvAMFQZEHAGY0167-35-10 10:02:00 Test Item Value Reference Range Interpretation Comments PT (test code = PT) 13.3 s 12.0-14.7 N [place] [address]-03-19 10:02:00 Test Item Value Reference Range Interpretation Comments INR (test code = INR) 1.01 0.85-1.17 N [facility] HospitalGbmisohOVVAVUUMWT0365-18-34 10:02:00 Test Item Value Reference Range Interpretation Comments Hct (test code = Hct) 27.5 36.0-48.0 L [facility] HospitalJdavreuJLTGXJOVNR3159-88-01 10:02:00 Test Item Value Reference Range Interpretation Comments RBC (test code = RBC) 3.34 4.20-5.40 L [facility] HospitalErnllqnFHUYEQTUDG3720-14-50 10:02:00 Test Item Value Reference Range Interpretation Comments Hgb (test code = Hgb) 9.7 12.0-16.0 L [facility] HospitalYwqtbqfZDAFPKAEUU8706-32-59 10:02:00 Test Item Value Reference Range Interpretation Comments WBC (test code = WBC) 5.0 3.7-10.4 N [facility] HospitalYntkvabLZHVDBFEAI5772-01-65 10:02:00 Test Item Value Reference Range Interpretation Comments MPV (test code = MPV) 9.2 7.4-10.4 N [facility] HospitalMtplkriWLAIGWCPPQ3898-47-45 10:02:00 Test Item Value Reference Range Interpretation Comments Platelet (test code = Platelet) 240 133-450 N [facility] HospitalTqohcwzAYTOYANWQZ7879-32-37 10:02:00 Test Item Value Reference Range Interpretation Comments RDW (test code = RDW) 14.3 11.5-14.5 N [facility] HospitalWpydfkcRMUOCDIILJ3058-15-58 10:02:00 Test Item Value Reference Range Interpretation Comments MCHC (test code = MCHC) 35.2 32.0-36.0 N [facility] HospitalWuupzcrDDKWTYTPWR2192-73-81 10:02:00 Test Item Value Reference Range Interpretation Comments MCH (test code = MCH) 28.9 pg 27.0-31.0 N [facility] HospitalVvxgwbcPLNCTWBNJZ7692-78-33 10:02:00 Test Item Value Reference Range Interpretation Comments MCV (test code = MCV) 82.1 81.0-99.0 N [facility] [place]DchnzslXNGZZKRWE3438-78-32 10:02:00 Test Item Value Reference Range Interpretation Comments Chloride Lvl (test code = Chloride Lvl) 105 95-109 N [facility] [place]ZwumtncDVQJNFUBP0226-91-47 10:02:00 Test Item Value Reference Range Interpretation Comments Potassium Lvl (test code = Potassium 4.1 3.5-5.1 N Lvl) [facility] [place]LeqbrikTAMZIXRUQ9972-88-65 10:02:00 Test Item Value Reference Range Interpretation Comments Sodium Lvl (test code = Sodium Lvl) 143 135-145 N [facility] [place]CjsyuxnBCBCUKIUT6730-46-25 10:02:00 Test Item Value Reference Range Interpretation Comments CO2 (test code = CO2) 29 24-32 N [facility] [place]GpjphszUJMRJGFWS8566-35-95 10:02:00 Test Item Value Reference Range Interpretation Comments Calcium Lvl (test code = Calcium Lvl) 8.7 8.5-10.5 N [facility] [place]GumnfecAZNZICYYP1944-85-43 10:02:00 Test Item Value Reference Range Interpretation Comments BUN (test code = BUN) 6 7-22 L [facility] [place]FuflpgkUMBPLNHFE8758-53-28 10:02:00 Test Item Value Reference Range Interpretation Comments Creatinine Lvl (test code = Creatinine 0.6 0.5-1.4 N Lvl) [facility] [place]LguceipOGAKSIDRC4387-46-80 10:02:00 Test Item Value Reference Range Interpretation Comments Glucose Lvl (test code = Glucose Lvl) 118 [facility] [place]VfyijwrBIEAPKGZJ7564-16-83 10:02:00 Test Item Value Reference Range Interpretation Comments AGAP (test code = AGAP) 13.1 10.0-20.0 N [facility] HospitalHpdohpeRWDZBBELTN8478-79-59 10:02:00 Test Item Value Reference Range Interpretation Comments Basophils # (test code 0.0 See_Comment N [Aut omated message] The = Basophils #) system which generated this result tra nsmitted reference range : <=0.2. The reference r leo was not used to int erpret this result as normal/abnormal . [facility] HospitalQuxyfrmFZPPUOWTLP1073-43-68 10:02:00 Test Item Value Reference Range Interpretation Comments Monocytes # (test code 0.3 See_Comment N [Aut omated message] The = Monocytes #) system which generated this result tra nsmitted reference range : <=0.8. The reference r leo was not used to int erpret this result as normal/abnormal . [facility] HospitalRaqpzdvOAAWZSYGZW1923-39-29 10:02:00 Test Item Value Reference Range Interpretation Comments Eosinophils # (test code 0.1 See_Comment N [A utomated message] The = Eosinophils #) system whic h generated this result tra nsmitted reference range : <=0.5. The reference r leo was not used to int erpret this result as normal/abnormal . [facility] HospitalIpvronbCZVRKNKMYB3497-18-52 10:02:00 Test Item Value Reference Range Interpretation Comments Segs-Bands # (test code = Segs-Bands #) 2.8 1.5-8.1 N [facility] HospitalNpkyzhfYFOXDKCUPX3831-41-06 10:02:00 Test Item Value Reference Range Interpretation Comments Lymphocytes # (test code = Lymphocytes 1.7 1.0-5.5 N #) [facility] HospitalQminwilOKIHOTDQFQ1835-01-48 10:02:00 Test Item Value Reference Range Interpretation Comments Basophils (test code = 0.6 See_Comment N [Aut omated message] The Basophils) system which ge nerated this result tra nsmitted reference range : <=1.0. The reference r leo was not used to int erpret this result as normal/abnormal . [facility] HospitalXwqtpsfEFPAMMEWIB8308-46-73 10:02:00 Test Item Value Reference Range Interpretation Comments Monocytes (test code = Monocytes) 6.9 2.0-12.0 N [facility] HospitalXugrjjcYRGKZCFRSC1998-88-00 10:02:00 Test Item Value Reference Range Interpretation Comments Eosinophils (test code = 2.0 See_Comment N [A utomated message] The Eosinophils) system which ge nerated this result tra nsmitted reference range : <=4.0. The reference r leo was not used to int erpret this result as normal/abnormal . [facility] HospitalElkqcgsGGOQDLXSTI6127-98-40 10:02:00 Test Item Value Reference Range Interpretation Comments Segs (test code = Segs) 55.8 45.0-75.0 N [facility] HospitalDkcjhsmHSIXHNFIBE3614-33-25 10:02:00 Test Item Value Reference Range Interpretation Comments Lymphocytes (test code = Lymphocytes) 34.7 20.0-40.0 N [facility] HospitalXabjmxoFUOQHELSEC7667-89-06 10:02:00 Test Item Value Reference Range Interpretation Comments PTT (test code = PTT) 32.2 s 22.9-35.8 N [facility] HospitalYsokfogHLDYFARVBF0259-89-90 10:02:00 Test Item Value Reference Range Interpretation Comments PT (test code = PT) 13.3 s 12.0-14.7 N [facility] HospitalWbkjvawUJGKRLZQGW8783-95-54 10:02:00 Test Item Value Reference Range Interpretation Comments INR (test code = INR) 1.01 0.85-1.17 N [facility] HospitalGkzwsqmYFSPFFITQM4322-17-54 10:02:00 Test Item Value Reference Range Interpretation Comments Hct (test code = Hct) 27.5 36.0-48.0 L [facility] HospitalFxbsircSEPDTKGFYG6518-34-05 10:02:00 Test Item Value Reference Range Interpretation Comments RBC (test code = RBC) 3.34 4.20-5.40 L [facility] HospitalXlbanidSXRCGCWKDC9344-05-87 10:02:00 Test Item Value Reference Range Interpretation Comments Hgb (test code = Hgb) 9.7 12.0-16.0 L [facility] HospitalOxrybyiADTOZTXSCK0078-32-99 10:02:00 Test Item Value Reference Range Interpretation Comments WBC (test code = WBC) 5.0 3.7-10.4 N [facility] HospitalRbbbjzgIYPQXGVWII7403-52-76 10:02:00 Test Item Value Reference Range Interpretation Comments MPV (test code = MPV) 9.2 7.4-10.4 N [facility] HospitalUtaxiuiIIDBHGUSKT5228-02-14 10:02:00 Test Item Value Reference Range Interpretation Comments Platelet (test code = Platelet) 240 133-450 N [facility] HospitalBjmbhalTAOOOXIJUZ4704-92-59 10:02:00 Test Item Value Reference Range Interpretation Comments RDW (test code = RDW) 14.3 11.5-14.5 N [facility] HospitalEauggieCJLDBCZRQH9621-65-03 10:02:00 Test Item Value Reference Range Interpretation Comments MCHC (test code = MCHC) 35.2 32.0-36.0 N [facility] HospitalQserosfDWAKYNULDU0258-16-27 10:02:00 Test Item Value Reference Range Interpretation Comments MCH (test code = MCH) 28.9 pg 27.0-31.0 N [facility] HospitalKotkntcSFZNNPRYDY4612-91-21 10:02:00 Test Item Value Reference Range Interpretation Comments MCV (test code = MCV) 82.1 81.0-99.0 N [facility] [place]NbyiojbVTKILINDN0237-28-68 10:02:00 Test Item Value Reference Range Interpretation Comments Chloride Lvl (test code = Chloride Lvl) 105 95-109 N [facility] [place]MufchqqKXZNOOPTH3686-04-64 10:02:00 Test Item Value Reference Range Interpretation Comments Potassium Lvl (test code = Potassium 4.1 3.5-5.1 N Lvl) [facility] [place]AzwvpxyWWALTOOIE9167-03-67 10:02:00 Test Item Value Reference Range Interpretation Comments Sodium Lvl (test code = Sodium Lvl) 143 135-145 N [facility] [place]JrxuigqADAGTECAS4337-93-07 10:02:00 Test Item Value Reference Range Interpretation Comments CO2 (test code = CO2) 29 24-32 N [facility] [place]AqowccpHFOGKZBQO9365-89-09 10:02:00 Test Item Value Reference Range Interpretation Comments Calcium Lvl (test code = Calcium Lvl) 8.7 8.5-10.5 N [facility] [place]NvlxxcoLIMAJBNIE8046-40-01 10:02:00 Test Item Value Reference Range Interpretation Comments BUN (test code = BUN) 6 7-22 L [facility] [place]PjjjqwfFGBMZTDPJ6557-92-16 10:02:00 Test Item Value Reference Range Interpretation Comments Creatinine Lvl (test code = Creatinine 0.6 0.5-1.4 N Lvl) [facility] [place]VvmwodnFYIRLJMDH9113-04-14 10:02:00 Test Item Value Reference Range Interpretation Comments Glucose Lvl (test code = Glucose Lvl) 118 [facility] [place]UifhzlhLTWMTIHTR5077-14-04 10:02:00 Test Item Value Reference Range Interpretation Comments AGAP (test code = AGAP) 13.1 10.0-20.0 N [facility] HospitalIouatskJJIXBVYTIE0759-84-83 10:02:00 Test Item Value Reference Range Interpretation Comments Basophils # (test code 0.0 See_Comment N [Aut omated message] The = Basophils #) system which generated this result tra nsmitted reference range : <=0.2. The reference r leo was not used to int erpret this result as normal/abnormal . [facility] HospitalDyfxasiPZGOOFAIEN4615-36-88 10:02:00 Test Item Value Reference Range Interpretation Comments Monocytes # (test code 0.3 See_Comment N [Aut omated message] The = Monocytes #) system which generated this result tra nsmitted reference range : <=0.8. The reference r leo was not used to int erpret this result as normal/abnormal . [facility] HospitalJhamxhdROFABKQXEW8807-65-81 10:02:00 Test Item Value Reference Range Interpretation Comments Eosinophils # (test code 0.1 See_Comment N [A utomated message] The = Eosinophils #) system whic h generated this result tra nsmitted reference range : <=0.5. The reference r leo was not used to int erpret this result as normal/abnormal . [facility] HospitalIpinqmjRHUDXESOUS1747-95-62 10:02:00 Test Item Value Reference Range Interpretation Comments Segs-Bands # (test code = Segs-Bands #) 2.8 1.5-8.1 N [facility] HospitalSdmoveqKMWFFQKHKF3364-52-75 10:02:00 Test Item Value Reference Range Interpretation Comments Lymphocytes # (test code = Lymphocytes 1.7 1.0-5.5 N #) [facility] HospitalRgmnqvcZCOAQTBJGE2285-05-13 10:02:00 Test Item Value Reference Range Interpretation Comments Basophils (test code = 0.6 See_Comment N [Aut omated message] The Basophils) system which ge nerated this result tra nsmitted reference range : <=1.0. The reference r leo was not used to int erpret this result as normal/abnormal . [facility] HospitalKfqopiyLQGCGWYQYD3774-76-11 10:02:00 Test Item Value Reference Range Interpretation Comments Monocytes (test code = Monocytes) 6.9 2.0-12.0 N [facility] HospitalAqyteyfEVRMDBDWWT2845-30-43 10:02:00 Test Item Value Reference Range Interpretation Comments Eosinophils (test code = 2.0 See_Comment N [A utomated message] The Eosinophils) system which ge nerated this result tra nsmitted reference range : <=4.0. The reference r leo was not used to int erpret this result as normal/abnormal . [facility] HospitalZimpzlaJUYDZWXCRL9979-86-31 10:02:00 Test Item Value Reference Range Interpretation Comments Segs (test code = Segs) 55.8 45.0-75.0 N [facility] HospitalGjygasfYLHNFGAQCS0135-72-50 10:02:00 Test Item Value Reference Range Interpretation Comments Lymphocytes (test code = Lymphocytes) 34.7 20.0-40.0 N [facility] HospitalTbbkgnnBFRUEAEFAL8056-91-69 10:02:00 Test Item Value Reference Range Interpretation Comments PTT (test code = PTT) 32.2 s 22.9-35.8 N [facility] HospitalPomqladGQLDVPDLGE0439-45-36 10:02:00 Test Item Value Reference Range Interpretation Comments PT (test code = PT) 13.3 s 12.0-14.7 N [facility] HospitalVmdyjtcAXOOCZLFSQ4218-91-22 10:02:00 Test Item Value Reference Range Interpretation Comments INR (test code = INR) 1.01 0.85-1.17 N [facility] HospitalVmjyvocAZMKKLJPPJ3691-68-83 10:02:00 Test Item Value Reference Range Interpretation Comments Hct (test code = Hct) 27.5 36.0-48.0 L [facility] HospitalKgwcrdgMVBNXNSONR5083-53-72 10:02:00 Test Item Value Reference Range Interpretation Comments RBC (test code = RBC) 3.34 4.20-5.40 L [facility] HospitalKblxhamDPGQNNSDMP3190-00-50 10:02:00 Test Item Value Reference Range Interpretation Comments Hgb (test code = Hgb) 9.7 12.0-16.0 L [facility] HospitalTytjipzFSGPMRLYYZ4767-57-73 10:02:00 Test Item Value Reference Range Interpretation Comments WBC (test code = WBC) 5.0 3.7-10.4 N [facility] HospitalTpqwdavXUSNJSPMOZ9745-25-44 10:02:00 Test Item Value Reference Range Interpretation Comments MPV (test code = MPV) 9.2 7.4-10.4 N [facility] HospitalNmjvafxLEMXWEUCRE8728-99-94 10:02:00 Test Item Value Reference Range Interpretation Comments Platelet (test code = Platelet) 240 133-450 N [facility] HospitalQoipvcuFISJIFHZZD2991-44-82 10:02:00 Test Item Value Reference Range Interpretation Comments RDW (test code = RDW) 14.3 11.5-14.5 N [facility] HospitalWaypnixGYLGTUSRAR2991-31-66 10:02:00 Test Item Value Reference Range Interpretation Comments MCHC (test code = MCHC) 35.2 32.0-36.0 N [facility] HospitalAjvemdbSOEMNMCHHX8096-30-02 10:02:00 Test Item Value Reference Range Interpretation Comments MCH (test code = MCH) 28.9 pg 27.0-31.0 N [facility] HospitalUsdnsnxZUIEZUERAZ9623-39-58 10:02:00 Test Item Value Reference Range Interpretation Comments MCV (test code = MCV) 82.1 81.0-99.0 N [facility] [place]FrccotySGXCFBFUI1384-20-06 09:24:00 Test Item Value Reference Range Interpretation Comments Magnesium Lvl (test code = Magnesium 2.1 1.8-2.4 N Lvl) [facility] [place]DyiemosKODODSEOJ8755-89-40 09:24:00 Test Item Value Reference Range Interpretation Comments Magnesium Lvl (test code = Magnesium 2.1 1.8-2.4 N Lvl) [facility] [place]ZyrplkeFSHHFPAFK2495-75-53 09:24:00 Test Item Value Reference Range Interpretation Comments Magnesium Lvl (test code = Magnesium 2.1 1.8-2.4 N Lvl) [facility] [place]TiiznhtHEXMURSIJ7025-61-83 09:24:00 Test Item Value Reference Range Interpretation Comments Magnesium Lvl (test code = Magnesium 2.1 1.8-2.4 N Lvl) [facility] [place]JdpvuksOKDXCWGAC7582-14-45 09:24:00 Test Item Value Reference Range Interpretation Comments Magnesium Lvl (test code = Magnesium 2.1 1.8-2.4 N Lvl) [facility]IujlozzVsqhzdrcxzrg4394-45-38 00:32:00 Test Item Value Reference Range Interpretation Comments Culture: Aspirate/Body Fluid/Tissue (test code = Culture: Aspirate/Body Fluid/Tissue) [facility] CenterArerwxnNjentlitebii7608-92-17 00:32:00 Test Item Value Reference Range Interpretation Comments Culture: Anaerobic (test code = Culture: Anaerobic) [facility] CenterFfwjyycKpcerolzhovm4456-04-93 00:32:00 Test Item Value Reference Range Interpretation Comments Culture: Aspirate/Body Fluid/Tissue (test code = Culture: Aspirate/Body Fluid/Tissue) [facility] CenterEpudqpqNqixpfrughjp4458-24-87 00:32:00 Test Item Value Reference Range Interpretation Comments Culture: Anaerobic (test code = Culture: Anaerobic) [facility] CenterSsssnktPtadfvygazra1743-19-99 00:32:00 Test Item Value Reference Range Interpretation Comments Culture: Aspirate/Body Fluid/Tissue (test code = Culture: Aspirate/Body Fluid/Tissue) [facility] CenterDsuedmlIqkkthgaxqir5583-12-25 00:32:00 Test Item Value Reference Range Interpretation Comments Culture: Anaerobic (test code = Culture: Anaerobic) [facility] CenterEzjmgqcBdwkcdzgjyvs0292-41-68 00:32:00 Test Item Value Reference Range Interpretation Comments Culture: Aspirate/Body Fluid/Tissue (test code = Culture: Aspirate/Body Fluid/Tissue) [facility] CenterFuerwcwCtpsmzfmgyij4829-16-94 00:32:00 Test Item Value Reference Range Interpretation Comments Culture: Anaerobic (test code = Culture: Anaerobic) [facility] CenterNnewtodJbgpwnivbrfn4922-79-57 00:32:00 Test Item Value Reference Range Interpretation Comments Culture: Aspirate/Body Fluid/Tissue (test code = Culture: Aspirate/Body Fluid/Tissue) [facility] CenterVnslxhyZoivblwxqgmi9719-06-89 00:32:00 Test Item Value Reference Range Interpretation Comments Culture: Anaerobic (test code = Culture: Anaerobic) [facility] [place]ZdfujbqPQEXVRAEK5076-56-47 17:10:00 Test Item Value Reference Range Interpretation Comments Temp Roberth (test code = Temp Roberth) 37.0 [facility] [place]BvsdptlLOLVNRADN7913-75-30 17:10:00 Test Item Value Reference Range Interpretation Comments O2 Sat Roberth (test code = O2 Sat Roberth) 27.0 40.0-70.0 L [facility] [place]AkpvhvzIUOEUUXCS9527-27-21 17:10:00 Test Item Value Reference Range Interpretation Comments pCO2 Roberth (test code = pCO2 Roberth) 47 38-52 N [facility] [place]GtxkwaqZJJSLNQXE2107-53-83 17:10:00 Test Item Value Reference Range Interpretation Comments pH Roberth (test code = pH Roberth) 7.37 7.28-7.42 N [facility] [place]WdocjxzCCQRZTWBM7041-00-66 17:10:00 Test Item Value Reference Range Interpretation Comments BE Roberth (test code = 1 See_Comment N [Automa rohit message] The BE Roberth) system which ge nerated this result transmit rohit reference range : <=2. The reference range was not used to interpr et this result as reji l/abnormal. [facility] [place]LhsdksnFTOPHLYCT8624-19-49 17:10:00 Test Item Value Reference Range Interpretation Comments HCO3 Roberth (test code = HCO3 Roberth) 27.2 22.0-26.0 H [facility] [place]FqqcukgJJZBVAEGS3601-56-45 17:10:00 Test Item Value Reference Range Interpretation Comments pO2 Roberth (test code = pO2 Roberth) 19 20-49 L [facility] [place]LqcnjjkAQVBJFIFV3024-54-97 17:10:00 Test Item Value Reference Range Interpretation Comments Temp Roberth (test code = Temp Roberth) 37.0 [facility] [place]CqpnfsmWAMKMDCDR5336-07-85 17:10:00 Test Item Value Reference Range Interpretation Comments O2 Sat Roberth (test code = O2 Sat Roberth) 27.0 40.0-70.0 L [facility] [place]KcpdoesTPPOGXEZW8924-35-54 17:10:00 Test Item Value Reference Range Interpretation Comments pCO2 Roberth (test code = pCO2 Roberth) 47 38-52 N [facility] [place]OgjzijqCGTRYWVTA6024-05-45 17:10:00 Test Item Value Reference Range Interpretation Comments pH Roberth (test code = pH Roberth) 7.37 7.28-7.42 N [facility] [place]ervilleCowhubsLEDYQNMEC0308-64-36 17:10:00 Test Item Value Reference Range Interpretation Comments BE Roberth (test code = 1 See_Comment N [Automa rohit message] The BE Roberth) system which ge nerated this result transmit rohit reference range : <=2. The reference range was not used to interpr et this result as reji l/abnormal. [facility]CshdpadUXERCGBSN0737-02-02 17:10:00 Test Item Value Reference Range Interpretation Comments HCO3 Roberth (test code = HCO3 Roberth) 27.2 22.0-26.0 H [facility] [place]HhczpanWAWANNIDD5531-47-17 17:10:00 Test Item Value Reference Range Interpretation Comments pO2 Roberth (test code = pO2 Roberth) 19 20-49 L [facility] [place]JwubgwxGWXPQHZHP1926-08-82 17:10:00 Test Item Value Reference Range Interpretation Comments Temp Roberth (test code = Temp Roberth) 37.0 [facility] [place]IsybrszBZKGUQPPS8092-15-16 17:10:00 Test Item Value Reference Range Interpretation Comments O2 Sat Roberth (test code = O2 Sat Roberth) 27.0 40.0-70.0 L [facility] [place]XvfzxlqHEXWHSIQB0299-13-15 17:10:00 Test Item Value Reference Range Interpretation Comments pCO2 Roberth (test code = pCO2 Roberth) 47 38-52 N [facility] [place]ervilleRtvzifyFJXGTBHGX4481-40-09 17:10:00 Test Item Value Reference Range Interpretation Comments pH Roberth (test code = pH Roberth) 7.37 7.28-7.42 N [facility] [place]XtziceaZWUULXSUL2036-22-89 17:10:00 Test Item Value Reference Range Interpretation Comments BE Roberth (test code = 1 See_Comment N [Automa rohit message] The BE Roberth) system which ge nerated this result transmit rohit reference range : <=2. The reference range was not used to interpr et this result as reji l/abnormal. [facility] [place]QnupjpxDODCXQZGF6190-89-02 17:10:00 Test Item Value Reference Range Interpretation Comments HCO3 Roberth (test code = HCO3 Roberth) 27.2 22.0-26.0 H [facility] [place]YelxpibSPWQDSROR2691-02-65 17:10:00 Test Item Value Reference Range Interpretation Comments pO2 Roberth (test code = pO2 Roberth) 19 20-49 L [facility] [place]QdwpmttMTXFYMSTC8864-01-45 17:10:00 Test Item Value Reference Range Interpretation Comments Temp Roberth (test code = Temp Roberth) 37.0 [facility] [place]HwjeeclFXFFLWGHE9720-17-61 17:10:00 Test Item Value Reference Range Interpretation Comments O2 Sat Roberth (test code = O2 Sat Roberth) 27.0 40.0-70.0 L [facility] [place]GjkkikpLCPSAMZLF6775-38-42 17:10:00 Test Item Value Reference Range Interpretation Comments pCO2 Roberth (test code = pCO2 Roberth) 47 38-52 N [facility] [place]DojjgbdEUAGXZVXB8790-44-47 17:10:00 Test Item Value Reference Range Interpretation Comments pH Roberth (test code = pH Roberth) 7.37 7.28-7.42 N [facility] [place]ervilleLfiacdbTYBXHYQJD9237-85-70 17:10:00 Test Item Value Reference Range Interpretation Comments BE Roberth (test code = 1 See_Comment N [Automa rohit message] The BE Roberth) system which ge nerated this result transmit rohit reference range : <=2. The reference range was not used to interpr et this result as reji l/abnormal. [facility]ervilleHrwgtorIVQZGXMIX2772-96-92 17:10:00 Test Item Value Reference Range Interpretation Comments HCO3 Roberth (test code = HCO3 Roberth) 27.2 22.0-26.0 H [facility] [place]ervilleQawrwezIVWZEOZQJ0211-79-11 17:10:00 Test Item Value Reference Range Interpretation Comments pO2 Roberth (test code = pO2 Roberth) 19 20-49 L [facility] [place]OvkmddaMNYZLBTGH4842-11-07 17:10:00 Test Item Value Reference Range Interpretation Comments Temp Roberth (test code = Temp Roberth) 37.0 [facility] [place]NdnzritDDMAALGRI2943-35-62 17:10:00 Test Item Value Reference Range Interpretation Comments O2 Sat Roberth (test code = O2 Sat Roberth) 27.0 40.0-70.0 L [facility] [place]FvulqgwKXUYTLZSO4630-66-14 17:10:00 Test Item Value Reference Range Interpretation Comments pCO2 Roberth (test code = pCO2 Roberth) 47 38-52 N [facility] [place]MebhybhRISJKERHK1632-81-14 17:10:00 Test Item Value Reference Range Interpretation Comments pH Roberth (test code = pH Roberth) 7.37 7.28-7.42 N [facility] [place]JwxovfaKSHGUAPNW3504-26-51 17:10:00 Test Item Value Reference Range Interpretation Comments BE Roberth (test code = 1 See_Comment N [Automa rohit message] The BE Roberth) system which ge nerated this result transmit rohit reference range : <=2. The reference range was not used to interpr et this result as reji l/abnormal. [facility] [place]ervilleNzujezkBYTNSNNUK6172-02-39 17:10:00 Test Item Value Reference Range Interpretation Comments HCO3 Roberth (test code = HCO3 Roberth) 27.2 22.0-26.0 H [facility] [place]RqbtvowLMWSBGLNV4238-73-06 17:10:00 Test Item Value Reference Range Interpretation Comments pO2 Roberth (test code = pO2 Roberth) 19 20-49 L [facility] CenterNtghmqcInankhjelwfo3805-39-60 14:18:00 Test Item Value Reference Range Interpretation Comments Culture: Blood (test code = Culture: Blood) [facility] CenterZileembGmoleohdpois2753-78-80 14:18:00 Test Item Value Reference Range Interpretation Comments Culture: Wound/Abscess w/Gram Stain (test code = Culture: Wound/Abscess w/Gram Stain) [facility] CenterRvylavhXysrijfzfdke8142-15-63 14:18:00 Test Item Value Reference Range Interpretation Comments Culture: Blood (test code = Culture: Blood) [facility] CenterUtbjcwxCnfmynjxmjzj6532-20-11 14:18:00 Test Item Value Reference Range Interpretation Comments Culture: Wound/Abscess w/Gram Stain (test code = Culture: Wound/Abscess w/Gram Stain) [facility] CenterGtwvsfvMmsecbzzolms4221-15-29 14:18:00 Test Item Value Reference Range Interpretation Comments Culture: Blood (test code = Culture: Blood) [facility] CenterSaaosykImnequpkfwfr8050-41-35 14:18:00 Test Item Value Reference Range Interpretation Comments Culture: Wound/Abscess w/Gram Stain (test code = Culture: Wound/Abscess w/Gram Stain) [facility] CenterDgzhixiWfxozyyfaamn7417-06-09 14:18:00 Test Item Value Reference Range Interpretation Comments Culture: Blood (test code = Culture: Blood) [facility] CenterFnfntjnJawqdmjukjbe3776-90-49 14:18:00 Test Item Value Reference Range Interpretation Comments Culture: Wound/Abscess w/Gram Stain (test code = Culture: Wound/Abscess w/Gram Stain) [facility] CenterKrqrkheSvpvyvfngkmq4894-88-73 14:18:00 Test Item Value Reference Range Interpretation Comments Culture: Blood (test code = Culture: Blood) [facility] CenterNbwwhqmRjbfhveepdtb8624-39-07 14:18:00 Test Item Value Reference Range Interpretation Comments Culture: Wound/Abscess w/Gram Stain (test code = Culture: Wound/Abscess w/Gram Stain) [facility]ervilleZucpmvhEPFHNNRGL3339-22-91 13:09:00 Test Item Value Reference Range Interpretation Comments Lactic Acid Lvl (test code = Lactic 1.0 0.5-2.2 N Acid Lvl) [facility]ervilleYpawukgNJCPJRFPS2313-22-66 13:09:00 Test Item Value Reference Range Interpretation Comments Lactic Acid Lvl (test code = Lactic 1.0 0.5-2.2 N Acid Lvl) [facility] [place]OledmfbWFSXAVOCQ6263-28-79 13:09:00 Test Item Value Reference Range Interpretation Comments Lactic Acid Lvl (test code = Lactic 1.0 0.5-2.2 N Acid Lvl) [facility] [place]ervilleGsnvyaxCBTMQVJAM4163-41-91 13:09:00 Test Item Value Reference Range Interpretation Comments Lactic Acid Lvl (test code = Lactic 1.0 0.5-2.2 N Acid Lvl) [facility] [place]MqpmsgiTVSMGQRWC8620-36-66 13:09:00 Test Item Value Reference Range Interpretation Comments Lactic Acid Lvl (test code = Lactic 1.0 0.5-2.2 N Acid Lvl) [facility]ervilleZoipnzyXAEKPOKAQ7383-85-35 12:20:00 Test Item Value Reference Range Interpretation Comments U Preg (test code = U Negative (09/01/2011 N Preg) 07:20:00) [facility]DqmehzzOAWQQSZRVC8856-77-35 12:20:00 Test Item Value Reference Range Interpretation Comments UA Sq Epi (test code Occasional /LPF N = UA Sq Epi) (09/01/2011 07:20:00) [facility] HospitalVdlnlfmIVUQOPPFDS1633-08-13 12:20:00 Test Item Value Reference Range Interpretation Comments UA Leuk Est (test Negative (09/01/2011 N code = UA Leuk Est) 07:20:00) [facility] CenterJqcinvcKFXGZGIRKM0351-97-95 12:20:00 Test Item Value Reference Range Interpretation Comments UA Nitrite (test code Negative (09/01/2011 N = UA Nitrite) 07:20:00) [facility] CenterPkfybfwQJQDMCWMNT6731-22-14 12:20:00 Test Item Value Reference Range Interpretation Comments UA Urobilinogen (test code = UA 0.2 0.1-1.0 N Urobilinogen) [facility] CenterEhikkfuYIKLSVUTVH5812-52-51 12:20:00 Test Item Value Reference Range Interpretation Comments UA Blood (test code = Negative (09/01/2011 N UA Blood) 07:20:00) [facility] CenterYjvctzdDPVBZEJZNM0467-63-16 12:20:00 Test Item Value Reference Range Interpretation Comments UA Ketones (test code = >=80 mg/dL A UA Ketones) *ABN*(09/01/2011 07:20:00) [facility] HospitalFluwlrhOJOSEFEHRV6807-68-07 12:20:00 Test Item Value Reference Range Interpretation Comments UA Protein (test code Negative (09/01/2011 N = UA Protein) 07:20:00) [facility] CenterBylmuszWGIJRADRPW4108-83-27 12:20:00 Test Item Value Reference Range Interpretation Comments UA pH (test code = UA pH) 6.0 1 5.0-8.0 N [facility] CenterAualqvhSTFVXHBEKY7316-15-71 12:20:00 Test Item Value Reference Range Interpretation Comments UA Bili (test code = Negative (09/01/2011 N UA Bili) 07:20:00) [facility] CenterLeupyshAAOCFHRBTY5407-93-27 12:20:00 Test Item Value Reference Range Interpretation Comments UA Glucose (test code = >=1000 mg/dL A UA Glucose) *ABN*(09/01/2011 07:20:00) [facility] CenterBcdgtypTRQFZQBUKH4085-95-46 12:20:00 Test Item Value Reference Range Interpretation Comments UA Spec Grav (test code = UA Spec 1.035 1 H Grav) [facility] CenterEpumszcTJTSWSFTNM6477-05-69 12:20:00 Test Item Value Reference Range Interpretation Comments UA Turbidity (test code = Clear (09/01/2011 N UA Turbidity) 07:20:00) [facility]EjcfmusTUULQUMRIP4487-31-51 12:20:00 Test Item Value Reference Range Interpretation Comments UA Color (test code = Yellow *NA*(09/01/2011 UA Color) 07:20:00) [facility] DallasOhqpuqmWQWMQDETE8318-14-75 12:20:00 Test Item Value Reference Range Interpretation Comments U Preg (test code = U Negative (09/01/2011 N Preg) 07:20:00) [facility] DallasUjliivnOEMWGYXWVV0417-07-09 12:20:00 Test Item Value Reference Range Interpretation Comments UA Sq Epi (test code Occasional /LPF N = UA Sq Epi) (09/01/2011 07:20:00) [facility] ResourcesZuejngiIZVGHNWSHG9336-31-70 12:20:00 Test Item Value Reference Range Interpretation Comments UA Leuk Est (test Negative (09/01/2011 N code = UA Leuk Est) 07:20:00) [facility] DallasCilqaqmCTYVPGSUVM6216-91-58 12:20:00 Test Item Value Reference Range Interpretation Comments UA Nitrite (test code Negative (09/01/2011 N = UA Nitrite) 07:20:00) [facility] DallasNdrdrssZUOKICHJMM0659-96-73 12:20:00 Test Item Value Reference Range Interpretation Comments UA Urobilinogen (test code = UA 0.2 0.1-1.0 N Urobilinogen) [facility] ResourcesPunoljhTEZMTLLCOK7670-22-54 12:20:00 Test Item Value Reference Range Interpretation Comments UA Blood (test code = Negative (09/01/2011 N UA Blood) 07:20:00) [facility] DallasUwcturhHSEDVKVBON7899-55-01 12:20:00 Test Item Value Reference Range Interpretation Comments UA Ketones (test code = >=80 mg/dL A UA Ketones) *ABN*(09/01/2011 07:20:00) [facility] ResourcesCcnjhifGJMEUMCHDE0100-65-93 12:20:00 Test Item Value Reference Range Interpretation Comments UA Protein (test code Negative (09/01/2011 N = UA Protein) 07:20:00) [facility] DallasBadnoaoMMWYVMZJYF7143-92-93 12:20:00 Test Item Value Reference Range Interpretation Comments UA pH (test code = UA pH) 6.0 1 5.0-8.0 N [facility] DallasWxtjveiRBGJAAVIAS4940-39-84 12:20:00 Test Item Value Reference Range Interpretation Comments UA Bili (test code = Negative (09/01/2011 N UA Bili) 07:20:00) [facility] IseykedGFAEDYWFJO5977-66-39 12:20:00 Test Item Value Reference Range Interpretation Comments UA Glucose (test code = >=1000 mg/dL A UA Glucose) *ABN*(09/01/2011 07:20:00) [facility] DallasHeqqaxwVCKMZBUPKO2050-28-75 12:20:00 Test Item Value Reference Range Interpretation Comments UA Spec Grav (test code = UA Spec 1.035 1 H Grav) [facility] DallasEwhhoelVDBWZVZZGK1488-40-09 12:20:00 Test Item Value Reference Range Interpretation Comments UA Turbidity (test code = Clear (09/01/2011 N UA Turbidity) 07:20:00) [facility] DallasXinfgnsFTQEJSWJVF4104-29-01 12:20:00 Test Item Value Reference Range Interpretation Comments UA Color (test code = Yellow *NA*(09/01/2011 UA Color) 07:20:00) [facility] DallasGpckagsKKYDUNBZW6221-28-54 12:20:00 Test Item Value Reference Range Interpretation Comments U Preg (test code = U Negative (09/01/2011 N Preg) 07:20:00) [facility] DallasPoykznlKUFMPYERWT4014-77-26 12:20:00 Test Item Value Reference Range Interpretation Comments UA Sq Epi (test code Occasional /LPF N = UA Sq Epi) (09/01/2011 07:20:00) [facility] DallasEinoqxeLTBVFIVFXJ4071-27-13 12:20:00 Test Item Value Reference Range Interpretation Comments UA Leuk Est (test Negative (09/01/2011 N code = UA Leuk Est) 07:20:00) [facility] WxllpteJGNNZDNMKI0845-96-90 12:20:00 Test Item Value Reference Range Interpretation Comments UA Nitrite (test code Negative (09/01/2011 N = UA Nitrite) 07:20:00) [facility] DallasDkjuovfSKGHZRCGKN6384-47-47 12:20:00 Test Item Value Reference Range Interpretation Comments UA Urobilinogen (test code = UA 0.2 0.1-1.0 N Urobilinogen) [facility] ResourcesFrtxgrtTISASJIZUN7243-97-53 12:20:00 Test Item Value Reference Range Interpretation Comments UA Blood (test code = Negative (09/01/2011 N UA Blood) 07:20:00) [facility] CenterJcdbkifRMHFCGNTRO0796-60-76 12:20:00 Test Item Value Reference Range Interpretation Comments UA Ketones (test code = >=80 mg/dL A UA Ketones) *ABN*(09/01/2011 07:20:00) [facility] CenterKzhupdnALLJSSTIGP2818-22-86 12:20:00 Test Item Value Reference Range Interpretation Comments UA Protein (test code Negative (09/01/2011 N = UA Protein) 07:20:00) [facility] CenterTuzslgkYGEWCFQGBB1270-75-92 12:20:00 Test Item Value Reference Range Interpretation Comments UA pH (test code = UA pH) 6.0 1 5.0-8.0 N [facility] CenterSkhkfniGOCPBKPYUJ9782-79-56 12:20:00 Test Item Value Reference Range Interpretation Comments UA Bili (test code = Negative (09/01/2011 N UA Bili) 07:20:00) [facility] CenterHfrzechBLXSEQEHVS0153-06-29 12:20:00 Test Item Value Reference Range Interpretation Comments UA Glucose (test code = >=1000 mg/dL A UA Glucose) *ABN*(09/01/2011 07:20:00) [facility] CenterUbcoswlWVYWCLLTCM2035-06-58 12:20:00 Test Item Value Reference Range Interpretation Comments UA Spec Grav (test code = UA Spec 1.035 1 H Grav) [facility] CenterFbpafrqFFDMAAHOPG5623-74-04 12:20:00 Test Item Value Reference Range Interpretation Comments UA Turbidity (test code = Clear (09/01/2011 N UA Turbidity) 07:20:00) [facility] CenterHsxdqmuXTQXCDOKCA8238-02-41 12:20:00 Test Item Value Reference Range Interpretation Comments UA Color (test code = Yellow *NA*(09/01/2011 UA Color) 07:20:00) [facility] ResourcesTefjhleITGKEWEXC1282-12-63 12:20:00 Test Item Value Reference Range Interpretation Comments U Preg (test code = U Negative (09/01/2011 N Preg) 07:20:00) [facility] CenterWdyvvmoVPTWPCBOGU6759-36-39 12:20:00 Test Item Value Reference Range Interpretation Comments UA Sq Epi (test code Occasional /LPF N = UA Sq Epi) (09/01/2011 07:20:00) [facility] CenterCzsbnvwMZHUQCGZNY0685-23-28 12:20:00 Test Item Value Reference Range Interpretation Comments UA Leuk Est (test Negative (09/01/2011 N code = UA Leuk Est) 07:20:00) [facility] HospitalJntbmemCPYOINGWBN9955-17-58 12:20:00 Test Item Value Reference Range Interpretation Comments UA Nitrite (test code Negative (09/01/2011 N = UA Nitrite) 07:20:00) [facility] HospitalIwabnphRXAZSAXHEW2336-31-00 12:20:00 Test Item Value Reference Range Interpretation Comments UA Urobilinogen (test code = UA 0.2 0.1-1.0 N Urobilinogen) [facility] HospitalEcvgfxtMGHXIGEPJQ3557-34-75 12:20:00 Test Item Value Reference Range Interpretation Comments UA Blood (test code = Negative (09/01/2011 N UA Blood) 07:20:00) [facility] HospitalWqfkurjOPVEHYAYXO7053-49-07 12:20:00 Test Item Value Reference Range Interpretation Comments UA Ketones (test code = >=80 mg/dL A UA Ketones) *ABN*(09/01/2011 07:20:00) [facility] HospitalNrrnjnqJLPZBAGSYO6212-75-06 12:20:00 Test Item Value Reference Range Interpretation Comments UA Protein (test code Negative (09/01/2011 N = UA Protein) 07:20:00) [facility] HospitalNxoxllgVTAISEGAOC2792-39-78 12:20:00 Test Item Value Reference Range Interpretation Comments UA pH (test code = UA pH) 6.0 1 5.0-8.0 N [facility] HospitalMrreeqzEJRKLMPEEB2866-48-69 12:20:00 Test Item Value Reference Range Interpretation Comments UA Bili (test code = Negative (09/01/2011 N UA Bili) 07:20:00) [facility] HospitalNonbhvuPSUMBOLZBP9164-45-88 12:20:00 Test Item Value Reference Range Interpretation Comments UA Glucose (test code = >=1000 mg/dL A UA Glucose) *ABN*(09/01/2011 07:20:00) [facility] HospitalZtkdfgdTGNTPDZUSC1251-28-12 12:20:00 Test Item Value Reference Range Interpretation Comments UA Spec Grav (test code = UA Spec 1.035 1 H Grav) [facility] DallasTxozjbqMEVYQYPSTJ4268-15-68 12:20:00 Test Item Value Reference Range Interpretation Comments UA Turbidity (test code = Clear (09/01/2011 N UA Turbidity) 07:20:00) [facility] ResourcesJezbjmcMANARGBTER0327-35-44 12:20:00 Test Item Value Reference Range Interpretation Comments UA Color (test code = Yellow *NA*(09/01/2011 UA Color) 07:20:00) [facility] ResourcesVltqvsdVRZAQQLCX6803-08-57 12:20:00 Test Item Value Reference Range Interpretation Comments U Preg (test code = U Negative (09/01/2011 N Preg) 07:20:00) [facility] ResourcesTpqkvejVXSETBJFYD3484-51-46 12:20:00 Test Item Value Reference Range Interpretation Comments UA Sq Epi (test code Occasional /LPF N = UA Sq Epi) (09/01/2011 07:20:00) [facility] ResourcesNafgvnqUQWGGZJIRA4060-55-52 12:20:00 Test Item Value Reference Range Interpretation Comments UA Leuk Est (test Negative (09/01/2011 N code = UA Leuk Est) 07:20:00) [facility] DallasFvhyquwCWXUEKUNLG0189-38-53 12:20:00 Test Item Value Reference Range Interpretation Comments UA Nitrite (test code Negative (09/01/2011 N = UA Nitrite) 07:20:00) [facility] ResourcesNxvslzzXRRSLNVQUF5683-58-19 12:20:00 Test Item Value Reference Range Interpretation Comments UA Urobilinogen (test code = UA 0.2 0.1-1.0 N Urobilinogen) [facility] DallasZhdvviuZYDBUGBJHJ9938-32-64 12:20:00 Test Item Value Reference Range Interpretation Comments UA Blood (test code = Negative (09/01/2011 N UA Blood) 07:20:00) [facility] DallasFezpvdyUKFOEJDRHB5937-79-94 12:20:00 Test Item Value Reference Range Interpretation Comments UA Ketones (test code = >=80 mg/dL A UA Ketones) *ABN*(09/01/2011 07:20:00) [facility] ResourcesQaydcpnCQCZBPRLSD4028-96-59 12:20:00 Test Item Value Reference Range Interpretation Comments UA Protein (test code Negative (09/01/2011 N = UA Protein) 07:20:00) [facility] HospitalKyxqaboWHXPMQTRIU5491-24-31 12:20:00 Test Item Value Reference Range Interpretation Comments UA pH (test code = UA pH) 6.0 1 5.0-8.0 N [facility] HospitalCxouhttNVOGLXIZVO4768-28-74 12:20:00 Test Item Value Reference Range Interpretation Comments UA Bili (test code = Negative (09/01/2011 N UA Bili) 07:20:00) [facility] HospitalAiuwbluZLRMSRYILY4550-24-66 12:20:00 Test Item Value Reference Range Interpretation Comments UA Glucose (test code = >=1000 mg/dL A UA Glucose) *ABN*(09/01/2011 07:20:00) [facility] HospitalWihnafnOJLKVFXXLS1213-98-55 12:20:00 Test Item Value Reference Range Interpretation Comments UA Spec Grav (test code = UA Spec 1.035 1 H Grav) [facility] HospitalKojmnwtOMBEEFKOOF1636-47-82 12:20:00 Test Item Value Reference Range Interpretation Comments UA Turbidity (test code = Clear (09/01/2011 N UA Turbidity) 07:20:00) [facility] HospitalJpmbpfiYTHKINXZDK3305-71-82 12:20:00 Test Item Value Reference Range Interpretation Comments UA Color (test code = Yellow *NA*(09/01/2011 UA Color) 07:20:00) [facility]CtgkmraSSEKHFDBJ8586-50-33 08:00:00 Test Item Value Reference Range Interpretation Comments Lactic Acid Lvl (test code = Lactic 2.8 0.5-2.2 H Acid Lvl) [facility]ervilleFitnwhvYHSPTDISC6188-57-15 08:00:00 Test Item Value Reference Range Interpretation Comments Lactic Acid Lvl (test code = Lactic 2.8 0.5-2.2 H Acid Lvl) [facility]SdayqtmUJKWWAPRL6574-23-69 08:00:00 Test Item Value Reference Range Interpretation Comments Lactic Acid Lvl (test code = Lactic 2.8 0.5-2.2 H Acid Lvl) [facility]WoalwcbJWKDXLKQD4685-82-25 08:00:00 Test Item Value Reference Range Interpretation Comments Lactic Acid Lvl (test code = Lactic 2.8 0.5-2.2 H Acid Lvl) [facility]GnkifadWNMCXREWX4840-84-62 08:00:00 Test Item Value Reference Range Interpretation Comments Lactic Acid Lvl (test code = Lactic 2.8 0.5-2.2 H Acid Lvl) [facility]FyjvutcJFZFRTCRO5784-76-67 07:47:00 Test Item Value Reference Range Interpretation Comments Magnesium Lvl (test code = Magnesium 1.5 1.8-2.4 L Lvl) [facility]UevlnzdNLVYVWGSFV5480-[facility]-03 07:47:00 Test Item Value Reference Range Interpretation Comments Polychrom (test code = Slight (09/01/2011 N Polychrom) 02:47:00) [facility] HospitalGntomwqXSGVKEOXKG9966-72-17 07:47:00 Test Item Value Reference Range Interpretation Comments Anisocyte (test code = 1+ *ABN*(09/01/2011 A Anisocyte) 02:47:00) [facility] HospitalBapzexdYDNJHZQZTT8501-16-03 07:47:00 Test Item Value Reference Range Interpretation Comments Large Plt (test code = Slight *ABN*(09/01/2011 A Large Plt) 02:47:00) [facility] [facility]dsiiXJPHSRFAAX5418-[facility] 07:47:00 Test Item Value Reference Range Interpretation Comments Tear Cell (test code = Tear Cell) [facility] HospitalIhwxlcmWTVCCMQZPH1098-90-16 07:47:00 Test Item Value Reference Range Interpretation Comments Elliptocyte (test code = Slight A Elliptocyte) *ABN*(09/01/2011 02:47:00) [facility]TvrogjdOVQGMXAAB4297-42-18 07:47:00 Test Item Value Reference Range Interpretation Comments Magnesium Lvl (test code = Magnesium 1.5 1.8-2.4 L Lvl) [facility] HospitalZfvttrgXPTASUAHMB8772-40-64 07:47:00 Test Item Value Reference Range Interpretation Comments Polychrom (test code = Slight (09/01/2011 N Polychrom) 02:47:00) [facility] HospitalCmrwrgwFTJHPJWOFA5786-21-34 07:47:00 Test Item Value Reference Range Interpretation Comments Anisocyte (test code = 1+ *ABN*(09/01/2011 A Anisocyte) 02:47:00) [facility] HospitalZvdwyqhRZEXYGWXIR4494-16-14 07:47:00 Test Item Value Reference Range Interpretation Comments Large Plt (test code = Slight *ABN*(09/01/2011 A Large Plt) 02:47:00) [facility] HospitalRggwmmnBAHSLOUTDL6624-30-12 07:47:00 Test Item Value Reference Range Interpretation Comments Tear Cell (test code = Tear Cell) [facility] HospitalTtaqoprGHIJDDHBHD5498-89-82 07:47:00 Test Item Value Reference Range Interpretation Comments Elliptocyte (test code = Slight A Elliptocyte) *ABN*(09/01/2011 02:47:00) [facility]BaczdmtVOJHGTHWN1458-48-37 07:47:00 Test Item Value Reference Range Interpretation Comments Magnesium Lvl (test code = Magnesium 1.5 1.8-2.4 L Lvl) [facility] HospitalKkwqqqiPRHXDARJAI3267-98-76 07:47:00 Test Item Value Reference Range Interpretation Comments Polychrom (test code = Slight (09/01/2011 N Polychrom) 02:47:00) [facility] HospitalGuhcgifJGKPQAGCZE1364-74-47 07:47:00 Test Item Value Reference Range Interpretation Comments Anisocyte (test code = 1+ *ABN*(09/01/2011 A Anisocyte) 02:47:00) [facility] HospitalKozimhzZFQKYYXRLF5443-37-48 07:47:00 Test Item Value Reference Range Interpretation Comments Large Plt (test code = Slight *ABN*(09/01/2011 A Large Plt) 02:47:00) [facility] HospitalWrkwxvsLCTFSRGUTL8905-05-32 07:47:00 Test Item Value Reference Range Interpretation Comments Tear Cell (test code = Tear Cell) [facility] HospitalMhnwlclKUMAOXLWDZ2363-22-15 07:47:00 Test Item Value Reference Range Interpretation Comments Elliptocyte (test code = Slight A Elliptocyte) *ABN*(09/01/2011 02:47:00) [facility]YwyjbjqBRIELPXSA3811-49-50 07:47:00 Test Item Value Reference Range Interpretation Comments Magnesium Lvl (test code = Magnesium 1.5 1.8-2.4 L Lvl) [facility] HospitalObumzrkURTZYWFCEK0182-32-62 07:47:00 Test Item Value Reference Range Interpretation Comments Polychrom (test code = Slight (09/01/2011 N Polychrom) 02:47:00) [facility] HospitalOdgfmcnVZTGJPLHTW7546-13-76 07:47:00 Test Item Value Reference Range Interpretation Comments Anisocyte (test code = 1+ *ABN*(09/01/2011 A Anisocyte) 02:47:00) [facility] HospitalDbjcsmxLMLBPYPIPS6989-12-31 07:47:00 Test Item Value Reference Range Interpretation Comments Large Plt (test code = Slight *ABN*(09/01/2011 A Large Plt) 02:47:00) [facility] HospitalRvufcqfROWHXMVQBP6975-07-40 07:47:00 Test Item Value Reference Range Interpretation Comments Tear Cell (test code = Tear Cell) [facility] HospitalPvuqtakPZOXPANDDF8930-66-49 07:47:00 Test Item Value Reference Range Interpretation Comments Elliptocyte (test code = Slight A Elliptocyte) *ABN*(09/01/2011 02:47:00) [facility]GpijntyAMBTSVGDB5393-38-87 07:47:00 Test Item Value Reference Range Interpretation Comments Magnesium Lvl (test code = Magnesium 1.5 1.8-2.4 L Lvl) [facility] HospitalVieovukTBXOJLYHDF6823-20-54 07:47:00 Test Item Value Reference Range Interpretation Comments Polychrom (test code = Slight (09/01/2011 N Polychrom) 02:47:00) [facility] HospitalUtmenfqGYDLJERNGC4870-44-62 07:47:00 Test Item Value Reference Range Interpretation Comments Anisocyte (test code = 1+ *ABN*(09/01/2011 A Anisocyte) 02:47:00) [facility] HospitalBxdnatjNKIHJAFQTT8000-72-97 07:47:00 Test Item Value Reference Range Interpretation Comments Large Plt (test code = Slight *ABN*(09/01/2011 A Large Plt) 02:47:00) [facility] HospitalWdljqxtKETFXSIBSO2609-32-38 07:47:00 Test Item Value Reference Range Interpretation Comments Tear Cell (test code = Tear Cell) [facility]ional [facility] HospitalVyumcrcZEWHFFVOCD2124-69-19 07:47:00 Test Item Value Reference Range Interpretation Comments Elliptocyte (test code = Slight A Elliptocyte) *ABN*(09/01/2011 02:47:00) [facility] GLUCOSE ZSVNMRG5090-69-65 17:02:00 Test Item Value Reference Range Interpretation Comments Comment1 (test code = Comment1) Riccoy RN/ [facility] GLUCOSE FRMTJTI8940-90-08 17:02:00 Test Item Value Reference Range Interpretation Comments Gluc POC Lifscn (test code = Gluc POC 134 65-110 H Lifscn) [facility] GLUCOSE WLJKEDQ2784-64-59 17:02:00 Test Item Value Reference Range Interpretation Comments Comment1 (test code = Comment1) Notify RN/ [facility] GLUCOSE [id number] 17:02:00 Test Item Value Reference Range Interpretation Comments Gluc POC Lifscn (test code = Gluc POC 134 65-110 H Lifscn) [facility] GLUCOSE [id number] 17:02:00 Test Item Value Reference Range Interpretation Comments Comment1 (test code = Comment1) Notify RN/ [facility] GLUCOSE SGDRRWF8968-41-95 17:02:00 Test Item Value Reference Range Interpretation Comments Gluc POC Lifscn (test code = Gluc POC 134 65-110 H Lifscn) [facility] GLUCOSE MBGDJEU3918-90-57 17:02:00 Test Item Value Reference Range Interpretation Comments Comment1 (test code = Comment1) Notify TABATHA/ [facility] GLUCOSE [id number] 17:02:00 Test Item Value Reference Range Interpretation Comments Gluc POC Lifscn (test code = Gluc POC 134 65-110 H Lifscn) [facility] GLUCOSE QQPWZYY2434-02-50 17:02:00 Test Item Value Reference Range Interpretation Comments Comment1 (test code = Comment1) Notify TABATHA/ [facility] GLUCOSE DBJLVKC4223-73-37 17:02:00 Test Item Value Reference Range Interpretation Comments Gluc POC Lifscn (test code = Gluc POC 134 65-110 H Lifscn) [facility] GLUCOSE [id number] 13:45:00 Test Item Value Reference Range Interpretation Comments Gluc POC Lifscn (test code = Gluc POC 182 65-110 H Lifscn) [facility] GLUCOSE CNJHVQY3937-32-91 13:45:00 Test Item Value Reference Range Interpretation Comments Comment1 (test code = Comment1) Notify TABATHA/ [facility] GLUCOSE [id number] 13:45:00 Test Item Value Reference Range Interpretation Comments Gluc POC Lifscn (test code = Gluc POC 182 65-110 H Lifscn) [facility] GLUCOSE GEBQSIB7749-20-85 13:45:00 Test Item Value Reference Range Interpretation Comments Comment1 (test code = Comment1) Notify TABATHA/ [facility] GLUCOSE [id number] 13:45:00 Test Item Value Reference Range Interpretation Comments Gluc POC Lifscn (test code = Gluc POC 182 65-110 H Lifscn) [facility] GLUCOSE VNIIHMX8825-86-43 13:45:00 Test Item Value Reference Range Interpretation Comments Comment1 (test code = Comment1) Notify RN/ [facility] GLUCOSE [id number] 13:45:00 Test Item Value Reference Range Interpretation Comments Gluc POC Lifscn (test code = Gluc POC 182 65-110 H Lifscn) [facility] GLUCOSE [id number] 13:45:00 Test Item Value Reference Range Interpretation Comments Comment1 (test code = Comment1) Notify RN/ [facility] GLUCOSE [id number] 13:45:00 Test Item Value Reference Range Interpretation Comments Gluc POC Lifscn (test code = Gluc POC 182 65-110 H Lifscn) [facility] GLUCOSE QCYNDZM8270-89-77 13:45:00 Test Item Value Reference Range Interpretation Comments Comment1 (test code = Comment1) Notify RN/ [facility]BuuoprdBGBNZUFEB7597-59-07 10:22:00 Test Item Value Reference Range Interpretation Comments Phosphorus (test code = Phosphorus) 3.0 2.5-4.5 N [facility] [place]OeensfbJLSPLNAAF4226-01-04 10:22:00 Test Item Value Reference Range Interpretation Comments Magnesium Lvl (test code = Magnesium 1.8 1.8-2.4 N Lvl) [facility]FhytfhlXBNACTUHJ6927-27-19 10:22:00 Test Item Value Reference Range Interpretation Comments Chloride Lvl (test code = Chloride Lvl) 107 95-109 N [facility]GvfsbhxVQVRHFEUN3424-89-33 10:22:00 Test Item Value Reference Range Interpretation Comments Potassium Lvl (test code = Potassium 3.0 3.5-5.1 A Lvl) [facility] [place]OjtcwlpKACHOCGCI9063-76-02 10:22:00 Test Item Value Reference Range Interpretation Comments Sodium Lvl (test code = Sodium Lvl) 141 135-145 N [facility] [place]ervilleCukqnffJPZXYTCBE7369-76-60 10:22:00 Test Item Value Reference Range Interpretation Comments Creatinine Lvl (test code = Creatinine 0.6 0.5-1.4 N Lvl) [facility] [place]IlsjmlgAWJVMDWXG4559-04-39 10:22:00 Test Item Value Reference Range Interpretation Comments CO2 (test code = CO2) 23 24-32 L [facility] [place]VeeiswcZGWULPWGR9730-09-37 10:22:00 Test Item Value Reference Range Interpretation Comments Calcium Lvl (test code = Calcium Lvl) 7.3 8.5-10.5 L [facility] [place]GctyepiNRGCTEQWN1065-61-31 10:22:00 Test Item Value Reference Range Interpretation Comments Glucose Lvl (test code = Glucose Lvl) 136 [facility] [place]ervilleMzaudmkPCIZHUAND5108-09-88 10:22:00 Test Item Value Reference Range Interpretation Comments AGAP (test code = AGAP) 14.0 10.0-20.0 N [facility] [place]ervilleUphnzznTWHQRRIEL8957-25-69 10:22:00 Test Item Value Reference Range Interpretation Comments BUN (test code = BUN) 5 7-22 L [facility] HospitalOghidjxVQJMEVVQCP3369-07-28 10:22:00 Test Item Value Reference Range Interpretation Comments Segs (test code = Segs) 69.6 45.0-75.0 N [facility] HospitalWtnlavzBWOIOKKOPZ5987-33-08 10:22:00 Test Item Value Reference Range Interpretation Comments Lymphocytes (test code = Lymphocytes) 21.5 20.0-40.0 N [facility] HospitalZruqlktMOISJNWAKL4597-59-16 10:22:00 Test Item Value Reference Range Interpretation Comments Monocytes (test code = Monocytes) 7.6 2.0-12.0 N [facility] HospitalDerprwkLOYRCNUPML9202-35-63 10:22:00 Test Item Value Reference Range Interpretation Comments Eosinophils (test code = 1.0 See_Comment N [A utomated message] The Eosinophils) system which ge nerated this result tra nsmitted reference range : <=4.0. The reference r leo was not used to int erpret this result as normal/abnormal . [facility] HospitalKjaqgogYKUFWPWKBH6284-08-82 10:22:00 Test Item Value Reference Range Interpretation Comments Basophils (test code = 0.3 See_Comment N [Aut omated message] The Basophils) system which ge nerated this result tra nsmitted reference range : <=1.0. The reference r leo was not used to int erpret this result as normal/abnormal . [facility] HospitalFkhchoeHKDWHVWSON4871-24-68 10:22:00 Test Item Value Reference Range Interpretation Comments Segs-Bands # (test code = Segs-Bands #) 4.8 1.5-8.1 N [facility] HospitalNujtzaxBACZKOIURK8536-27-00 10:22:00 Test Item Value Reference Range Interpretation Comments Eosinophils # (test code 0.1 See_Comment N [A utomated message] The = Eosinophils #) system whic h generated this result tra nsmitted reference range : <=0.5. The reference r leo was not used to int erpret this result as normal/abnormal . [facility] HospitalXbrizjdKQITDXLBJP1113-95-23 10:22:00 Test Item Value Reference Range Interpretation Comments Lymphocytes # (test code = Lymphocytes 1.5 1.0-5.5 N #) [facility] HospitalThemkxyYFATVEMJEV2593-31-20 10:22:00 Test Item Value Reference Range Interpretation Comments Monocytes # (test code 0.5 See_Comment N [Aut omated message] The = Monocytes #) system which generated this result tra nsmitted reference range : <=0.8. The reference r leo was not used to int erpret this result as normal/abnormal . [facility] HospitalDfronetYSTEECYWOC3847-28-77 10:22:00 Test Item Value Reference Range Interpretation Comments Basophils # (test code 0.0 See_Comment N [Aut omated message] The = Basophils #) system which generated this result tra nsmitted reference range : <=0.2. The reference r leo was not used to int erpret this result as normal/abnormal . [facility] HospitalZqpgrnkUGQMQRAWMI5899-02-91 10:22:00 Test Item Value Reference Range Interpretation Comments MPV (test code = MPV) 11.0 7.4-10.4 H [facility] HospitalFwberrzDMLFLKIKDL8001-29-75 10:22:00 Test Item Value Reference Range Interpretation Comments Platelet (test code = Platelet) 161 133-450 N [facility] HospitalWwcgxtaDTEXTDODVO0052-00-80 10:22:00 Test Item Value Reference Range Interpretation Comments MCH (test code = MCH) 29.6 pg 27.0-31.0 N [facility] HospitalPyutdqjWPTTFJIWXK1512-25-97 10:22:00 Test Item Value Reference Range Interpretation Comments MCHC (test code = MCHC) 35.4 32.0-36.0 N [facility] HospitalWpukgeoSLQATKFEWC4135-10-99 10:22:00 Test Item Value Reference Range Interpretation Comments RDW (test code = RDW) 14.1 11.5-14.5 N [facility] HospitalHescuqnNGLSXWEUQM0098-98-78 10:22:00 Test Item Value Reference Range Interpretation Comments WBC (test code = WBC) 6.8 3.7-10.4 N [facility] HospitalMogcywdWKLYMWEAUD0966-44-82 10:22:00 Test Item Value Reference Range Interpretation Comments MCV (test code = MCV) 83.5 81.0-99.0 N [facility] HospitalBhzqtemZMHVTTZWMA6780-40-84 10:22:00 Test Item Value Reference Range Interpretation Comments RBC (test code = RBC) 4.44 4.20-5.40 N [facility] HospitalIuaxtnkNMAEDCSLAC0594-99-66 10:22:00 Test Item Value Reference Range Interpretation Comments Hgb (test code = Hgb) 13.1 12.0-16.0 N [facility] HospitalNpmmvvzYAWUUBSRMH3062-22-09 10:22:00 Test Item Value Reference Range Interpretation Comments Hct (test code = Hct) 37.1 36.0-48.0 N [facility]JlnqvudPBZVKDGWS0505-64-57 10:22:00 Test Item Value Reference Range Interpretation Comments Phosphorus (test code = Phosphorus) 3.0 2.5-4.5 N [facility] [place]WqdewcaINIXWYNQL9899-64-72 10:22:00 Test Item Value Reference Range Interpretation Comments Magnesium Lvl (test code = Magnesium 1.8 1.8-2.4 N Lvl) [facility] [place]XbqcxfbJXKVILRIX8033-03-29 10:22:00 Test Item Value Reference Range Interpretation Comments Chloride Lvl (test code = Chloride Lvl) 107 95-109 N [facility] [place]NenlhetBKYKMNAUC4662-72-39 10:22:00 Test Item Value Reference Range Interpretation Comments Potassium Lvl (test code = Potassium 3.0 3.5-5.1 A Lvl) [facility] [place]ervilleZufwimiLACWCKHHR5712-42-36 10:22:00 Test Item Value Reference Range Interpretation Comments Sodium Lvl (test code = Sodium Lvl) 141 135-145 N [facility] [place]ervilleGtezrjtLCBXUAPIS4148-88-27 10:22:00 Test Item Value Reference Range Interpretation Comments Creatinine Lvl (test code = Creatinine 0.6 0.5-1.4 N Lvl) [facility] [place]WlljpghSIIMRFYTU4591-28-02 10:22:00 Test Item Value Reference Range Interpretation Comments CO2 (test code = CO2) 23 24-32 L [facility] [place]ervilleHyvrdpeDYVSQJMBC5127-96-78 10:22:00 Test Item Value Reference Range Interpretation Comments Calcium Lvl (test code = Calcium Lvl) 7.3 8.5-10.5 L [facility] [place]ervilleUiejhcqMRAVJEEHG4016-30-64 10:22:00 Test Item Value Reference Range Interpretation Comments Glucose Lvl (test code = Glucose Lvl) 136 [facility]ervilleZxrkukmYQPQWYGFZ4100-96-47 10:22:00 Test Item Value Reference Range Interpretation Comments AGAP (test code = AGAP) 14.0 10.0-20.0 N [facility]HpzsmytXFNARFPSD7958-31-63 10:22:00 Test Item Value Reference Range Interpretation Comments BUN (test code = BUN) 5 7-22 L [facility] HospitalJjgfheuGARUTWMYOY6134-71-46 10:22:00 Test Item Value Reference Range Interpretation Comments Segs (test code = Segs) 69.6 45.0-75.0 N [facility] HospitalGslaeqbLWRDITJJZP9056-36-20 10:22:00 Test Item Value Reference Range Interpretation Comments Lymphocytes (test code = Lymphocytes) 21.5 20.0-40.0 N [facility] HospitalNxlsdexYHQEWYKZNH4868-59-37 10:22:00 Test Item Value Reference Range Interpretation Comments Monocytes (test code = Monocytes) 7.6 2.0-12.0 N [facility] HospitalKntxgsfEZXHWVQEBK4610-18-39 10:22:00 Test Item Value Reference Range Interpretation Comments Eosinophils (test code = 1.0 See_Comment N [A utomated message] The Eosinophils) system which ge nerated this result tra nsmitted reference range : <=4.0. The reference r leo was not used to int erpret this result as normal/abnormal . [facility] HospitalVekcgkqBCLGHFSFWZ5458-49-87 10:22:00 Test Item Value Reference Range Interpretation Comments Basophils (test code = 0.3 See_Comment N [Aut omated message] The Basophils) system which ge nerated this result tra nsmitted reference range : <=1.0. The reference r leo was not used to int erpret this result as normal/abnormal . [facility] HospitalXsmemvbJWPZWKMGQA1427-57-52 10:22:00 Test Item Value Reference Range Interpretation Comments Segs-Bands # (test code = Segs-Bands #) 4.8 1.5-8.1 N [facility] HospitalChzzpsmPZEQHRNIBW9280-71-61 10:22:00 Test Item Value Reference Range Interpretation Comments Eosinophils # (test code 0.1 See_Comment N [A utomated message] The = Eosinophils #) system whic h generated this result tra nsmitted reference range : <=0.5. The reference r leo was not used to int erpret this result as normal/abnormal . [facility] HospitalXwvxlkfKWCWCOTNIG6323-56-77 10:22:00 Test Item Value Reference Range Interpretation Comments Lymphocytes # (test code = Lymphocytes 1.5 1.0-5.5 N #) [facility] HospitalDzmiobeLWMXUFVUTK7050-15-49 10:22:00 Test Item Value Reference Range Interpretation Comments Monocytes # (test code 0.5 See_Comment N [Aut omated message] The = Monocytes #) system which generated this result tra nsmitted reference range : <=0.8. The reference r leo was not used to int erpret this result as normal/abnormal . [facility] HospitalZookoghPPSMFVSONC1103-74-45 10:22:00 Test Item Value Reference Range Interpretation Comments Basophils # (test code 0.0 See_Comment N [Aut omated message] The = Basophils #) system which generated this result tra nsmitted reference range : <=0.2. The reference r leo was not used to int erpret this result as normal/abnormal . [facility] HospitalLtfftgiQGTYJAQRFW2771-79-83 10:22:00 Test Item Value Reference Range Interpretation Comments MPV (test code = MPV) 11.0 7.4-10.4 H [facility] HospitalVjnkgxdFQDDIWHVDT9003-09-46 10:22:00 Test Item Value Reference Range Interpretation Comments Platelet (test code = Platelet) 161 133-450 N [facility] HospitalWrgrrinLBJBVWPBCU0891-17-49 10:22:00 Test Item Value Reference Range Interpretation Comments MCH (test code = MCH) 29.6 pg 27.0-31.0 N [facility] HospitalNepmmqzVHGLSAHQVV8887-51-19 10:22:00 Test Item Value Reference Range Interpretation Comments MCHC (test code = MCHC) 35.4 32.0-36.0 N [facility] HospitalUnmubaiRATRBNBZVC8086-63-88 10:22:00 Test Item Value Reference Range Interpretation Comments RDW (test code = RDW) 14.1 11.5-14.5 N [facility] HospitalGbkwgvqEZUDDRHWDS9757-03-94 10:22:00 Test Item Value Reference Range Interpretation Comments WBC (test code = WBC) 6.8 3.7-10.4 N [facility] HospitalXegfgcbTQXSVNROFR0094-04-47 10:22:00 Test Item Value Reference Range Interpretation Comments MCV (test code = MCV) 83.5 81.0-99.0 N [facility] HospitalJqfoaooAPOETJTEED0445-80-08 10:22:00 Test Item Value Reference Range Interpretation Comments RBC (test code = RBC) 4.44 4.20-5.40 N [facility] HospitalIunreqtKEBCHAPBBQ3327-29-74 10:22:00 Test Item Value Reference Range Interpretation Comments Hgb (test code = Hgb) 13.1 12.0-16.0 N [facility] HospitalNtzitbyWPNECAPJMF8804-69-15 10:22:00 Test Item Value Reference Range Interpretation Comments Hct (test code = Hct) 37.1 36.0-48.0 N [facility]JeitqkfAWDVEXFOX0131-62-84 10:22:00 Test Item Value Reference Range Interpretation Comments Phosphorus (test code = Phosphorus) 3.0 2.5-4.5 N [facility] [place]TrxbrvuZMIOYBGZN7173-92-89 10:22:00 Test Item Value Reference Range Interpretation Comments Magnesium Lvl (test code = Magnesium 1.8 1.8-2.4 N Lvl) [facility] [place]RfqhpmrMIKHZGOOP3340-72-96 10:22:00 Test Item Value Reference Range Interpretation Comments Chloride Lvl (test code = Chloride Lvl) 107 95-109 N [facility] [place]ZjcorxgCJJEWLSRP7834-08-22 10:22:00 Test Item Value Reference Range Interpretation Comments Potassium Lvl (test code = Potassium 3.0 3.5-5.1 A Lvl) [facility] [place]VklwtwpMPGKKYUSY4377-47-05 10:22:00 Test Item Value Reference Range Interpretation Comments Sodium Lvl (test code = Sodium Lvl) 141 135-145 N [facility] [place]UqcpxdqBWLDDZRRP6990-13-83 10:22:00 Test Item Value Reference Range Interpretation Comments Creatinine Lvl (test code = Creatinine 0.6 0.5-1.4 N Lvl) [facility] [place]XhoowalVGRAUWKAP1170-65-56 10:22:00 Test Item Value Reference Range Interpretation Comments CO2 (test code = CO2) 23 24-32 L [facility] [place]ervilleLvojukbZFJLTEEBG6319-35-75 10:22:00 Test Item Value Reference Range Interpretation Comments Calcium Lvl (test code = Calcium Lvl) 7.3 8.5-10.5 L [facility] [place]ervilleUuzpptfKNGCDWXXY6683-14-60 10:22:00 Test Item Value Reference Range Interpretation Comments Glucose Lvl (test code = Glucose Lvl) 136 [facility] [place]ervilleHyegcndJBHMUBMMD5277-35-12 10:22:00 Test Item Value Reference Range Interpretation Comments AGAP (test code = AGAP) 14.0 10.0-20.0 N [facility] [place]VnvzqeoYHHZTQPGU7273-52-22 10:22:00 Test Item Value Reference Range Interpretation Comments BUN (test code = BUN) 5 7-22 L [facility] HospitalKecfyddXXNHUUQNHB8830-70-54 10:22:00 Test Item Value Reference Range Interpretation Comments Segs (test code = Segs) 69.6 45.0-75.0 N [facility] HospitalTojvssqTWHGAOMCSO6866-30-59 10:22:00 Test Item Value Reference Range Interpretation Comments Lymphocytes (test code = Lymphocytes) 21.5 20.0-40.0 N [facility] HospitalCrrjoouCVDWYQZFOA0029-86-53 10:22:00 Test Item Value Reference Range Interpretation Comments Monocytes (test code = Monocytes) 7.6 2.0-12.0 N [facility] HospitalXkycjyzPGGXWTNYUM3569-49-57 10:22:00 Test Item Value Reference Range Interpretation Comments Eosinophils (test code = 1.0 See_Comment N [A utomated message] The Eosinophils) system which ge nerated this result tra nsmitted reference range : <=4.0. The reference r leo was not used to int erpret this result as normal/abnormal . [facility] HospitalNkntwrmYBXFMZFSAE0491-66-60 10:22:00 Test Item Value Reference Range Interpretation Comments Basophils (test code = 0.3 See_Comment N [Aut omated message] The Basophils) system which ge nerated this result tra nsmitted reference range : <=1.0. The reference r leo was not used to int erpret this result as normal/abnormal . [facility] HospitalPekijgyJXRUYLMYHY7587-76-94 10:22:00 Test Item Value Reference Range Interpretation Comments Segs-Bands # (test code = Segs-Bands #) 4.8 1.5-8.1 N [facility] HospitalFiwmpgnWYABKRLLMR8842-30-17 10:22:00 Test Item Value Reference Range Interpretation Comments Eosinophils # (test code 0.1 See_Comment N [A utomated message] The = Eosinophils #) system whic h generated this result tra nsmitted reference range : <=0.5. The reference r leo was not used to int erpret this result as normal/abnormal . [facility] HospitalMeuotunLXRRIZPGDM0504-33-39 10:22:00 Test Item Value Reference Range Interpretation Comments Lymphocytes # (test code = Lymphocytes 1.5 1.0-5.5 N #) [facility] HospitalVauqtlpORNRZRMZXD9608-73-15 10:22:00 Test Item Value Reference Range Interpretation Comments Monocytes # (test code 0.5 See_Comment N [Aut omated message] The = Monocytes #) system which generated this result tra nsmitted reference range : <=0.8. The reference r leo was not used to int erpret this result as normal/abnormal . [facility] HospitalBenjhryKKYKKVNZLU7079-23-57 10:22:00 Test Item Value Reference Range Interpretation Comments Basophils # (test code 0.0 See_Comment N [Aut omated message] The = Basophils #) system which generated this result tra nsmitted reference range : <=0.2. The reference r leo was not used to int erpret this result as normal/abnormal . [facility] HospitalSrwgijjFESKIWKTTX4382-55-65 10:22:00 Test Item Value Reference Range Interpretation Comments MPV (test code = MPV) 11.0 7.4-10.4 H [facility] HospitalVnqnhgrJTDZVQVWFJ2661-83-99 10:22:00 Test Item Value Reference Range Interpretation Comments Platelet (test code = Platelet) 161 133-450 N [facility] HospitalUryztlaGHADKVREJX0472-75-47 10:22:00 Test Item Value Reference Range Interpretation Comments MCH (test code = MCH) 29.6 pg 27.0-31.0 N [facility] HospitalMkcrhpxHYFJOPEESO3734-16-92 10:22:00 Test Item Value Reference Range Interpretation Comments MCHC (test code = MCHC) 35.4 32.0-36.0 N [facility] HospitalJahqbfaHMNBCQDAHX4207-35-89 10:22:00 Test Item Value Reference Range Interpretation Comments RDW (test code = RDW) 14.1 11.5-14.5 N [facility] HospitalSbdciwhEPCYSVURYA8365-06-15 10:22:00 Test Item Value Reference Range Interpretation Comments WBC (test code = WBC) 6.8 3.7-10.4 N [facility] HospitalKecjirnXGJGCWGBHP1027-93-03 10:22:00 Test Item Value Reference Range Interpretation Comments MCV (test code = MCV) 83.5 81.0-99.0 N [facility] HospitalLscbaboVYHNNCCARJ0388-09-01 10:22:00 Test Item Value Reference Range Interpretation Comments RBC (test code = RBC) 4.44 4.20-5.40 N [facility] HospitalOexggwpULXCWPMIBP3244-14-04 10:22:00 Test Item Value Reference Range Interpretation Comments Hgb (test code = Hgb) 13.1 12.0-16.0 N [facility] HospitalQfoqfuzIPPGGMOVDA0241-38-26 10:22:00 Test Item Value Reference Range Interpretation Comments Hct (test code = Hct) 37.1 36.0-48.0 N [facility]PxfaycmOGDYDNMOC0464-41-37 10:22:00 Test Item Value Reference Range Interpretation Comments Phosphorus (test code = Phosphorus) 3.0 2.5-4.5 N [facility] [place]OnnvtgaOCANEQTVR9799-89-09 10:22:00 Test Item Value Reference Range Interpretation Comments Magnesium Lvl (test code = Magnesium 1.8 1.8-2.4 N Lvl) [facility] [place]VykfusuXWFEJVYAS5893-02-61 10:22:00 Test Item Value Reference Range Interpretation Comments Chloride Lvl (test code = Chloride Lvl) 107 95-109 N [facility] [place]ZpwsrcgABOKMTGJC0893-94-51 10:22:00 Test Item Value Reference Range Interpretation Comments Potassium Lvl (test code = Potassium 3.0 3.5-5.1 A Lvl) [facility] [place]KgchgutDRZKOYPTU5140-92-31 10:22:00 Test Item Value Reference Range Interpretation Comments Sodium Lvl (test code = Sodium Lvl) 141 135-145 N [facility] [place]YnxawpcSFBPFVFKP2449-23-66 10:22:00 Test Item Value Reference Range Interpretation Comments Creatinine Lvl (test code = Creatinine 0.6 0.5-1.4 N Lvl) [facility] [place]XonrsnlWKLXGMTTM3621-04-89 10:22:00 Test Item Value Reference Range Interpretation Comments CO2 (test code = CO2) 23 24-32 L [facility] [place]UxxcyqkKTKKQDYRP8920-54-17 10:22:00 Test Item Value Reference Range Interpretation Comments Calcium Lvl (test code = Calcium Lvl) 7.3 8.5-10.5 L [facility] [place]ervilleBmiatsaNLJIADYOO2652-21-32 10:22:00 Test Item Value Reference Range Interpretation Comments Glucose Lvl (test code = Glucose Lvl) 136 [facility] [place]QxbxbnyWMOOKJFRJ3759-04-13 10:22:00 Test Item Value Reference Range Interpretation Comments AGAP (test code = AGAP) 14.0 10.0-20.0 N [facility] [place]CpujbduRWQMUJHSE5564-57-19 10:22:00 Test Item Value Reference Range Interpretation Comments BUN (test code = BUN) 5 7-22 L [facility] HospitalDrlseqkPPDRJZOKGB8722-37-44 10:22:00 Test Item Value Reference Range Interpretation Comments Segs (test code = Segs) 69.6 45.0-75.0 N [facility] HospitalAqxvwvsYKWRGHJFKM8626-60-57 10:22:00 Test Item Value Reference Range Interpretation Comments Lymphocytes (test code = Lymphocytes) 21.5 20.0-40.0 N [facility] HospitalRqfrjdkSEZOUUZBRQ6613-62-50 10:22:00 Test Item Value Reference Range Interpretation Comments Monocytes (test code = Monocytes) 7.6 2.0-12.0 N [facility] HospitalNblobrhKULAIOMKAK9311-52-16 10:22:00 Test Item Value Reference Range Interpretation Comments Eosinophils (test code = 1.0 See_Comment N [A utomated message] The Eosinophils) system which ge nerated this result tra nsmitted reference range : <=4.0. The reference r leo was not used to int erpret this result as normal/abnormal . [facility] HospitalGekzmhoNCNLJBZXXH0187-36-31 10:22:00 Test Item Value Reference Range Interpretation Comments Basophils (test code = 0.3 See_Comment N [Aut omated message] The Basophils) system which ge nerated this result tra nsmitted reference range : <=1.0. The reference r leo was not used to int erpret this result as normal/abnormal . [facility] HospitalTeivmljJEPTOVJZBN2590-03-29 10:22:00 Test Item Value Reference Range Interpretation Comments Segs-Bands # (test code = Segs-Bands #) 4.8 1.5-8.1 N [facility] HospitalBqsinsrMWUROXTDRA7030-10-04 10:22:00 Test Item Value Reference Range Interpretation Comments Eosinophils # (test code 0.1 See_Comment N [A utomated message] The = Eosinophils #) system whic h generated this result tra nsmitted reference range : <=0.5. The reference r leo was not used to int erpret this result as normal/abnormal . [facility] HospitalKqpnxwgZWGFPGQCGQ5552-99-97 10:22:00 Test Item Value Reference Range Interpretation Comments Lymphocytes # (test code = Lymphocytes 1.5 1.0-5.5 N #) [facility] HospitalXsbxuulJATXJSMJYZ2477-54-73 10:22:00 Test Item Value Reference Range Interpretation Comments Monocytes # (test code 0.5 See_Comment N [Aut omated message] The = Monocytes #) system which generated this result tra nsmitted reference range : <=0.8. The reference r elo was not used to int erpret this result as normal/abnormal . [facility] HospitalNclsdkhCXEKCKYEXY9582-15-17 10:22:00 Test Item Value Reference Range Interpretation Comments Basophils # (test code 0.0 See_Comment N [Aut omated message] The = Basophils #) system which generated this result tra nsmitted reference range : <=0.2. The reference r leo was not used to int erpret this result as normal/abnormal . [facility] HospitalMwyjybkYTKGXNCOHL8584-72-61 10:22:00 Test Item Value Reference Range Interpretation Comments MPV (test code = MPV) 11.0 7.4-10.4 H [facility] HospitalXdbhbwiDKEKAVUMAA4892-04-15 10:22:00 Test Item Value Reference Range Interpretation Comments Platelet (test code = Platelet) 161 133-450 N [facility] HospitalPhhxvsaSODHQFQJMP7590-26-53 10:22:00 Test Item Value Reference Range Interpretation Comments MCH (test code = MCH) 29.6 pg 27.0-31.0 N [facility] HospitalTaescovUGXXINZQAG2333-10-70 10:22:00 Test Item Value Reference Range Interpretation Comments MCHC (test code = MCHC) 35.4 32.0-36.0 N [facility] HospitalZnembauXAMSGZIMUM8921-00-40 10:22:00 Test Item Value Reference Range Interpretation Comments RDW (test code = RDW) 14.1 11.5-14.5 N [facility] HospitalUxuwnskIRDMRZSWSY7416-21-81 10:22:00 Test Item Value Reference Range Interpretation Comments WBC (test code = WBC) 6.8 3.7-10.4 N [facility] HospitalHbhumqcDNPVMDHZOR3002-87-57 10:22:00 Test Item Value Reference Range Interpretation Comments MCV (test code = MCV) 83.5 81.0-99.0 N [facility] HospitalAgqyqpdLUXUYWAAFK3077-64-99 10:22:00 Test Item Value Reference Range Interpretation Comments RBC (test code = RBC) 4.44 4.20-5.40 N [facility] HospitalOcfbmsmUKHJEWKKZN4221-69-82 10:22:00 Test Item Value Reference Range Interpretation Comments Hgb (test code = Hgb) 13.1 12.0-16.0 N [facility] HospitalCulfckjPZRFESNILE3216-55-05 10:22:00 Test Item Value Reference Range Interpretation Comments Hct (test code = Hct) 37.1 36.0-48.0 N [facility]NidvwxsVEOLSOLTX5050-40-20 10:22:00 Test Item Value Reference Range Interpretation Comments Phosphorus (test code = Phosphorus) 3.0 2.5-4.5 N [facility] [place]KpondlaGYAZRSOGF0323-76-81 10:22:00 Test Item Value Reference Range Interpretation Comments Magnesium Lvl (test code = Magnesium 1.8 1.8-2.4 N Lvl) [facility] [place]FpiizeqAGSLADGKV5512-70-90 10:22:00 Test Item Value Reference Range Interpretation Comments Chloride Lvl (test code = Chloride Lvl) 107 95-109 N [facility] [place]XxctecaSJJUHWYVM8159-64-83 10:22:00 Test Item Value Reference Range Interpretation Comments Potassium Lvl (test code = Potassium 3.0 3.5-5.1 A Lvl) [facility] [place]FesgdbwVVEYJMUTP0039-20-38 10:22:00 Test Item Value Reference Range Interpretation Comments Sodium Lvl (test code = Sodium Lvl) 141 135-145 N [facility] [place]YiqlcliINSARNRNO7520-89-63 10:22:00 Test Item Value Reference Range Interpretation Comments Creatinine Lvl (test code = Creatinine 0.6 0.5-1.4 N Lvl) [facility] [place]XfxxljaDBERQLPDN6385-49-13 10:22:00 Test Item Value Reference Range Interpretation Comments CO2 (test code = CO2) 23 24-32 L [facility] [place]XtzcesfRBSAGNYJT3865-51-13 10:22:00 Test Item Value Reference Range Interpretation Comments Calcium Lvl (test code = Calcium Lvl) 7.3 8.5-10.5 L [facility] [place]ZujydbcWFLFZNJMB7567-18-50 10:22:00 Test Item Value Reference Range Interpretation Comments Glucose Lvl (test code = Glucose Lvl) 136 [facility]CmscryuMSXRSQOBH8892-73-18 10:22:00 Test Item Value Reference Range Interpretation Comments AGAP (test code = AGAP) 14.0 10.0-20.0 N [facility] [place]ShdokalYHFHKEHVF3725-91-76 10:22:00 Test Item Value Reference Range Interpretation Comments BUN (test code = BUN) 5 7-22 L [facility] HospitalQahbhevZARZRHOIAY1565-18-29 10:22:00 Test Item Value Reference Range Interpretation Comments Segs (test code = Segs) 69.6 45.0-75.0 N [facility] HospitalFlgfnblENAONECDMA0067-87-00 10:22:00 Test Item Value Reference Range Interpretation Comments Lymphocytes (test code = Lymphocytes) 21.5 20.0-40.0 N [facility] HospitalKgrwxwoGSBDUTAGHY9783-98-51 10:22:00 Test Item Value Reference Range Interpretation Comments Monocytes (test code = Monocytes) 7.6 2.0-12.0 N [facility] HospitalGjnrmkkIZNYJBCYZF1757-85-16 10:22:00 Test Item Value Reference Range Interpretation Comments Eosinophils (test code = 1.0 See_Comment N [A utomated message] The Eosinophils) system which ge nerated this result tra nsmitted reference range : <=4.0. The reference r leo was not used to int erpret this result as normal/abnormal . [facility] HospitalQhtdogoLRLQWLFVMT1599-10-99 10:22:00 Test Item Value Reference Range Interpretation Comments Basophils (test code = 0.3 See_Comment N [Aut omated message] The Basophils) system which ge nerated this result tra nsmitted reference range : <=1.0. The reference r leo was not used to int erpret this result as normal/abnormal . [facility] HospitalWlzbtpcEYNERYAEQO8098-85-71 10:22:00 Test Item Value Reference Range Interpretation Comments Segs-Bands # (test code = Segs-Bands #) 4.8 1.5-8.1 N [facility] HospitalVkjpdsfSGLNLVHLPB3124-39-77 10:22:00 Test Item Value Reference Range Interpretation Comments Eosinophils # (test code 0.1 See_Comment N [A utomated message] The = Eosinophils #) system whic h generated this result tra nsmitted reference range : <=0.5. The reference r leo was not used to int erpret this result as normal/abnormal . [facility] HospitalElocsfbSSKVGPAZUY2214-19-11 10:22:00 Test Item Value Reference Range Interpretation Comments Lymphocytes # (test code = Lymphocytes 1.5 1.0-5.5 N #) [facility] HospitalToccfjrSXIQZHWKHN2422-05-59 10:22:00 Test Item Value Reference Range Interpretation Comments Monocytes # (test code 0.5 See_Comment N [Aut omated message] The = Monocytes #) system which generated this result tra nsmitted reference range : <=0.8. The reference r leo was not used to int erpret this result as normal/abnormal . [facility] HospitalRlsvqbtURGSMUIPID0854-44-04 10:22:00 Test Item Value Reference Range Interpretation Comments Basophils # (test code 0.0 See_Comment N [Aut omated message] The = Basophils #) system which generated this result tra nsmitted reference range : <=0.2. The reference r leo was not used to int erpret this result as normal/abnormal . [facility] HospitalNbuleuqLCQHGBJQLA4383-25-93 10:22:00 Test Item Value Reference Range Interpretation Comments MPV (test code = MPV) 11.0 7.4-10.4 H [facility] HospitalQvushvzETQIKAEXLE9128-84-04 10:22:00 Test Item Value Reference Range Interpretation Comments Platelet (test code = Platelet) 161 133-450 N [facility] HospitalFygjtutQFQWFEHQEW5365-91-68 10:22:00 Test Item Value Reference Range Interpretation Comments MCH (test code = MCH) 29.6 pg 27.0-31.0 N [facility] HospitalYemadsrJVKFNUYVCZ1684-63-36 10:22:00 Test Item Value Reference Range Interpretation Comments MCHC (test code = MCHC) 35.4 32.0-36.0 N [facility] HospitalAwsjjuxSXOQOZIUAH6049-75-13 10:22:00 Test Item Value Reference Range Interpretation Comments RDW (test code = RDW) 14.1 11.5-14.5 N [facility] HospitalPgbizhrLNJVJYJILK2326-34-55 10:22:00 Test Item Value Reference Range Interpretation Comments WBC (test code = WBC) 6.8 3.7-10.4 N [facility] HospitalEuouyhwVGWDILXBHG7547-82-88 10:22:00 Test Item Value Reference Range Interpretation Comments MCV (test code = MCV) 83.5 81.0-99.0 N [facility] HospitalJcmstorMMYZCPEBYM6101-29-90 10:22:00 Test Item Value Reference Range Interpretation Comments RBC (test code = RBC) 4.44 4.20-5.40 N [facility] HospitalTzjwnwbXTJBHSVTFH3853-91-29 10:22:00 Test Item Value Reference Range Interpretation Comments Hgb (test code = Hgb) 13.1 12.0-16.0 N [facility] HospitalOexvyufHOEYBFLWAL4898-86-32 10:22:00 Test Item Value Reference Range Interpretation Comments Hct (test code = Hct) 37.1 36.0-48.0 N [facility] GLUCOSE USCOJMZ0112-81-64 02:20:00 Test Item Value Reference Range Interpretation Comments Comment1 (test code = Comment1) Notify RN/ [facility] GLUCOSE WBVXHWD2363-18-81 02:20:00 Test Item Value Reference Range Interpretation Comments Gluc POC Lifscn (test code = Gluc POC 332 65-110 H Lifscn) [facility] GLUCOSE PSZASOC0438-83-78 02:20:00 Test Item Value Reference Range Interpretation Comments Comment1 (test code = Comment1) Notify RN/ [facility] GLUCOSE BKPRXRA3421-53-12 02:20:00 Test Item Value Reference Range Interpretation Comments Gluc POC Lifscn (test code = Gluc POC 332 65-110 H Lifscn) [facility] GLUCOSE SYVSKWG9541-98-39 02:20:00 Test Item Value Reference Range Interpretation Comments Comment1 (test code = Comment1) Notify RN/ [facility] GLUCOSE BVJDRXB2165-47-04 02:20:00 Test Item Value Reference Range Interpretation Comments Gluc POC Lifscn (test code = Gluc POC 332 65-110 H Lifscn) [facility] GLUCOSE PEJZLNH7715-20-14 02:20:00 Test Item Value Reference Range Interpretation Comments Comment1 (test code = Comment1) Notify RN/ [facility] GLUCOSE AGTFNZA3960-01-30 02:20:00 Test Item Value Reference Range Interpretation Comments Gluc POC Lifscn (test code = Gluc POC 332 65-110 H Lifscn) [facility] GLUCOSE TEFSIZA0777-45-45 02:20:00 Test Item Value Reference Range Interpretation Comments Comment1 (test code = Comment1) Notify RN/MD [facility] GLUCOSE QKBKAHY4910-67-06 02:20:00 Test Item Value Reference Range Interpretation Comments Gluc POC Lifscn (test code = Gluc POC 332 65-110 H Lifscn) [facility]PzaqrsdOBTUWVVXN9055-99-56 09:47:00 Test Item Value Reference Range Interpretation Comments Phosphorus (test code = Phosphorus) 2.5 2.5-4.5 N [facility] [place]XctwawmTELFHXIQZ6724-13-24 09:47:00 Test Item Value Reference Range Interpretation Comments Glucose Lvl (test code = Glucose Lvl) 201 [facility] [place]UqjzzpdMZTDZMLAL2203-13-67 09:47:00 Test Item Value Reference Range Interpretation Comments BUN (test code = BUN) 7 7-22 N [facility] [place]IskidsxGLGKZGZZL6781-05-52 09:47:00 Test Item Value Reference Range Interpretation Comments CO2 (test code = CO2) 19 24-32 L [facility] [place]MhwsvrmGVRWZVLZZ7737-04-23 09:47:00 Test Item Value Reference Range Interpretation Comments Creatinine Lvl (test code = Creatinine 0.3 0.5-1.4 L Lvl) [facility] [place]VnbuopjDOFSKKFEI5856-73-09 09:47:00 Test Item Value Reference Range Interpretation Comments Sodium Lvl (test code = Sodium Lvl) 137 135-145 N [facility] [place]FrloyahFJGCOMTWC3872-60-40 09:47:00 Test Item Value Reference Range Interpretation Comments Chloride Lvl (test code = Chloride Lvl) 103 95-109 N [facility] [place]VzgxikgWQCBXKCPT3133-21-50 09:47:00 Test Item Value Reference Range Interpretation Comments Potassium Lvl (test code = Potassium 3.6 3.5-5.1 N Lvl) [facility]BnguxghNQWKXJLFH3025-04-12 09:47:00 Test Item Value Reference Range Interpretation Comments Calcium Lvl (test code = Calcium Lvl) 7.9 8.5-10.5 L [facility] [place]YkmeizqIJQXQNXVR1545-02-16 09:47:00 Test Item Value Reference Range Interpretation Comments AGAP (test code = AGAP) 18.6 10.0-20.0 N [facility] [place]QhxfeveWDTIIIIUI6913-08-53 09:47:00 Test Item Value Reference Range Interpretation Comments Magnesium Lvl (test code = Magnesium 1.6 1.8-2.4 L Lvl) [facility] HospitalCzdhmslKFERXCGPWD2124-74-31 09:47:00 Test Item Value Reference Range Interpretation Comments Basophils # (test code 0.0 See_Comment N [Aut omated message] The = Basophils #) system which generated this result tra nsmitted reference range : <=0.2. The reference r leo was not used to int erpret this result as normal/abnormal . [facility] HospitalNjorjftSOPINKBQVP7913-16-20 09:47:00 Test Item Value Reference Range Interpretation Comments Eosinophils (test code = 0.4 See_Comment N [A utomated message] The Eosinophils) system which ge nerated this result tra nsmitted reference range : <=4.0. The reference r leo was not used to int erpret this result as normal/abnormal . [facility] HospitalIkugjzqXXBZLMKORX5962-20-53 09:47:00 Test Item Value Reference Range Interpretation Comments Basophils (test code = 0.5 See_Comment N [Aut omated message] The Basophils) system which ge nerated this result tra nsmitted reference range : <=1.0. The reference r leo was not used to int erpret this result as normal/abnormal . [facility] HospitalDisymlgHAJQSWFINF1506-08-28 09:47:00 Test Item Value Reference Range Interpretation Comments Segs-Bands # (test code = Segs-Bands #) 5.9 1.5-8.1 N [facility] HospitalJrtgcmwFYMKKPEDNY6926-80-83 09:47:00 Test Item Value Reference Range Interpretation Comments Lymphocytes # (test code = Lymphocytes 1.2 1.0-5.5 N #) [facility] HospitalEoltddaQJJXOOTKGP0017-30-62 09:47:00 Test Item Value Reference Range Interpretation Comments Monocytes # (test code 0.5 See_Comment N [Aut omated message] The = Monocytes #) system which generated this result tra nsmitted reference range : <=0.8. The reference r leo was not used to int erpret this result as normal/abnormal . [facility] HospitalRcfhwtlJUUYCISZCL3400-20-57 09:47:00 Test Item Value Reference Range Interpretation Comments Eosinophils # (test code 0.0 See_Comment N [A utomated message] The = Eosinophils #) system whic h generated this result tra nsmitted reference range : <=0.5. The reference r leo was not used to int erpret this result as normal/abnormal . [facility] HospitalWckbucnAWRZXOEAAN7066-07-62 09:47:00 Test Item Value Reference Range Interpretation Comments Segs (test code = Segs) 76.9 45.0-75.0 H [facility] HospitalDhbtrepNBRBRWAOBW5030-45-13 09:47:00 Test Item Value Reference Range Interpretation Comments Lymphocytes (test code = Lymphocytes) 15.9 20.0-40.0 L [facility] HospitalGayfvstZKGCVAMEZY4140-83-57 09:47:00 Test Item Value Reference Range Interpretation Comments Monocytes (test code = Monocytes) 6.3 2.0-12.0 N [facility] HospitalKcvlwznJPMSPDENOU5131-53-08 09:47:00 Test Item Value Reference Range Interpretation Comments MCV (test code = MCV) 82.8 81.0-99.0 N [facility] HospitalFdevrejDCHFEOYYGH9769-17-11 09:47:00 Test Item Value Reference Range Interpretation Comments Hct (test code = Hct) 39.7 36.0-48.0 N [facility] HospitalVyjkdvgEOEUXWYCVE0205-76-26 09:47:00 Test Item Value Reference Range Interpretation Comments MCH (test code = MCH) 29.1 pg 27.0-31.0 N [facility] HospitalUtdkfqxCHKDXVXBEM6863-43-12 09:47:00 Test Item Value Reference Range Interpretation Comments Hgb (test code = Hgb) 14.0 12.0-16.0 N [facility] HospitalQolaqlaNGEQZWAPXQ3909-80-33 09:47:00 Test Item Value Reference Range Interpretation Comments MCHC (test code = MCHC) 35.2 32.0-36.0 N [facility] HospitalRvfdfpxATJLTTDGSJ8571-70-56 09:47:00 Test Item Value Reference Range Interpretation Comments RDW (test code = RDW) 13.9 11.5-14.5 N [facility] HospitalFiorpvmYYPJNDGVIL4798-90-35 09:47:00 Test Item Value Reference Range Interpretation Comments Platelet (test code = Platelet) 160 133-450 N [facility] HospitalUocgtytEDOPWDVRXN0970-44-07 09:47:00 Test Item Value Reference Range Interpretation Comments MPV (test code = MPV) 11.9 7.4-10.4 H [facility] HospitalCrdyybxKUSGLDNONF5950-87-90 09:47:00 Test Item Value Reference Range Interpretation Comments WBC (test code = WBC) 7.7 3.7-10.4 N [facility] HospitalXpblfeiXKLSXGKEAU7041-98-97 09:47:00 Test Item Value Reference Range Interpretation Comments RBC (test code = RBC) 4.80 4.20-5.40 N [facility]OmvzrlhKOMIRHWOF7167-32-92 09:47:00 Test Item Value Reference Range Interpretation Comments Phosphorus (test code = Phosphorus) 2.5 2.5-4.5 N [facility] [place]LahgydePCNTZGNQG4366-90-54 09:47:00 Test Item Value Reference Range Interpretation Comments Glucose Lvl (test code = Glucose Lvl) 201 [facility] [place]JzxtdveYYBDNJKJV8221-14-52 09:47:00 Test Item Value Reference Range Interpretation Comments BUN (test code = BUN) 7 7-22 N [facility] [place]IktrxihHITDFBYJY1067-06-72 09:47:00 Test Item Value Reference Range Interpretation Comments CO2 (test code = CO2) 19 24-32 L [facility] [place]KhcxaegSPRBXCSKK8576-63-71 09:47:00 Test Item Value Reference Range Interpretation Comments Creatinine Lvl (test code = Creatinine 0.3 0.5-1.4 L Lvl) [facility] [place]MrjiwerLBXDIXVXC9199-97-86 09:47:00 Test Item Value Reference Range Interpretation Comments Sodium Lvl (test code = Sodium Lvl) 137 135-145 N [facility] [place]GcgjnbmRRGEFZJSU0978-63-20 09:47:00 Test Item Value Reference Range Interpretation Comments Chloride Lvl (test code = Chloride Lvl) 103 95-109 N [facility] [place]FzadwasDJSKMXPCN6501-26-15 09:47:00 Test Item Value Reference Range Interpretation Comments Potassium Lvl (test code = Potassium 3.6 3.5-5.1 N Lvl) [facility]ervilleHuvlvkpDYZFICHZC8205-79-98 09:47:00 Test Item Value Reference Range Interpretation Comments Calcium Lvl (test code = Calcium Lvl) 7.9 8.5-10.5 L [facility] [place]ervilleAviemdmYDRYHKNRR6936-73-61 09:47:00 Test Item Value Reference Range Interpretation Comments AGAP (test code = AGAP) 18.6 10.0-20.0 N [facility] [place]AuyxhakLITNGWOZN3500-25-53 09:47:00 Test Item Value Reference Range Interpretation Comments Magnesium Lvl (test code = Magnesium 1.6 1.8-2.4 L Lvl) [facility] HospitalMgvixfgEONAOTXGHN7423-75-04 09:47:00 Test Item Value Reference Range Interpretation Comments Basophils # (test code 0.0 See_Comment N [Aut omated message] The = Basophils #) system which generated this result tra nsmitted reference range : <=0.2. The reference r leo was not used to int erpret this result as normal/abnormal . [facility] HospitalDofnuxtGCMCOHPZPL2544-76-99 09:47:00 Test Item Value Reference Range Interpretation Comments Eosinophils (test code = 0.4 See_Comment N [A utomated message] The Eosinophils) system which ge nerated this result tra nsmitted reference range : <=4.0. The reference r leo was not used to int erpret this result as normal/abnormal . [facility] HospitalPxfgdjaJWJOVPUFZO8737-86-61 09:47:00 Test Item Value Reference Range Interpretation Comments Basophils (test code = 0.5 See_Comment N [Aut omated message] The Basophils) system which ge nerated this result tra nsmitted reference range : <=1.0. The reference r leo was not used to int erpret this result as normal/abnormal . [facility] HospitalIvqtprxSKTCCZPTNB9326-00-19 09:47:00 Test Item Value Reference Range Interpretation Comments Segs-Bands # (test code = Segs-Bands #) 5.9 1.5-8.1 N [facility] HospitalClqojddGUCFIVZTNF0654-73-74 09:47:00 Test Item Value Reference Range Interpretation Comments Lymphocytes # (test code = Lymphocytes 1.2 1.0-5.5 N #) [facility] HospitalXsnbmxaTUCABSUVRR6111-24-14 09:47:00 Test Item Value Reference Range Interpretation Comments Monocytes # (test code 0.5 See_Comment N [Aut omated message] The = Monocytes #) system which generated this result tra nsmitted reference range : <=0.8. The reference r leo was not used to int erpret this result as normal/abnormal . [facility] HospitalUldfvkhECFXQWGIWB4468-52-70 09:47:00 Test Item Value Reference Range Interpretation Comments Eosinophils # (test code 0.0 See_Comment N [A utomated message] The = Eosinophils #) system whic h generated this result tra nsmitted reference range : <=0.5. The reference r leo was not used to int erpret this result as normal/abnormal . [facility] HospitalYetnniuQETLHROTXQ3616-72-87 09:47:00 Test Item Value Reference Range Interpretation Comments Segs (test code = Segs) 76.9 45.0-75.0 H [facility] HospitalYhvozubVBDXNNSUSS8434-39-38 09:47:00 Test Item Value Reference Range Interpretation Comments Lymphocytes (test code = Lymphocytes) 15.9 20.0-40.0 L [facility] HospitalZcbautxPXYOZSAMTT7674-82-06 09:47:00 Test Item Value Reference Range Interpretation Comments Monocytes (test code = Monocytes) 6.3 2.0-12.0 N [facility] HospitalImaksasGGSJGVKATM1069-02-62 09:47:00 Test Item Value Reference Range Interpretation Comments MCV (test code = MCV) 82.8 81.0-99.0 N [facility] HospitalYypgbcgUZAMDQFRKM6645-00-95 09:47:00 Test Item Value Reference Range Interpretation Comments Hct (test code = Hct) 39.7 36.0-48.0 N [facility] HospitalUjfyywtLGTYWVLZOT7263-25-39 09:47:00 Test Item Value Reference Range Interpretation Comments MCH (test code = MCH) 29.1 pg 27.0-31.0 N [facility] HospitalOfkwoapAVPUFXPSAO8960-60-74 09:47:00 Test Item Value Reference Range Interpretation Comments Hgb (test code = Hgb) 14.0 12.0-16.0 N [facility] HospitalHazlgnhFXFPLDTXHQ2275-69-16 09:47:00 Test Item Value Reference Range Interpretation Comments MCHC (test code = MCHC) 35.2 32.0-36.0 N [facility] HospitalUwmlfqpWHOEQSIJUM5992-34-87 09:47:00 Test Item Value Reference Range Interpretation Comments RDW (test code = RDW) 13.9 11.5-14.5 N [facility] HospitalKvngcguEYMLJPLICW0098-77-18 09:47:00 Test Item Value Reference Range Interpretation Comments Platelet (test code = Platelet) 160 133-450 N [facility] HospitalWbzqfybBJRTRLNZAL9427-11-27 09:47:00 Test Item Value Reference Range Interpretation Comments MPV (test code = MPV) 11.9 7.4-10.4 H [facility] HospitalSvgrqgbJQBRCYXMLP7036-81-50 09:47:00 Test Item Value Reference Range Interpretation Comments WBC (test code = WBC) 7.7 3.7-10.4 N [facility] HospitalDelwoctYHNBIWGORA0338-99-07 09:47:00 Test Item Value Reference Range Interpretation Comments RBC (test code = RBC) 4.80 4.20-5.40 N [facility]VlvbhqcPATXUKQZB5146-50-16 09:47:00 Test Item Value Reference Range Interpretation Comments Phosphorus (test code = Phosphorus) 2.5 2.5-4.5 N [facility] [place]ervilleLcpjhuxQKFPLFCJD3006-35-82 09:47:00 Test Item Value Reference Range Interpretation Comments Glucose Lvl (test code = Glucose Lvl) 201 [facility]ervilleDxxkemnYXIEGZFJV0387-58-37 09:47:00 Test Item Value Reference Range Interpretation Comments BUN (test code = BUN) 7 7-22 N [facility] [place]JscjrdjZGDXKQKVC6207-84-47 09:47:00 Test Item Value Reference Range Interpretation Comments CO2 (test code = CO2) 19 24-32 L [facility] [place]GsviyqmQGLGCRFLS3964-43-41 09:47:00 Test Item Value Reference Range Interpretation Comments Creatinine Lvl (test code = Creatinine 0.3 0.5-1.4 L Lvl) [facility]GikfqewNOJLYBSEQ8042-50-52 09:47:00 Test Item Value Reference Range Interpretation Comments Sodium Lvl (test code = Sodium Lvl) 137 135-145 N [facility] [place]BpinbdfZOZTYYCPH1170-33-00 09:47:00 Test Item Value Reference Range Interpretation Comments Chloride Lvl (test code = Chloride Lvl) 103 95-109 N [facility] [place]ervilleTaxghoeYQQGMKLZI6748-96-92 09:47:00 Test Item Value Reference Range Interpretation Comments Potassium Lvl (test code = Potassium 3.6 3.5-5.1 N Lvl) [facility]ervilleExywnqtNWTBJIVZL3743-65-95 09:47:00 Test Item Value Reference Range Interpretation Comments Calcium Lvl (test code = Calcium Lvl) 7.9 8.5-10.5 L [facility] [place]OuxpnorHJOSHJIPP5809-85-46 09:47:00 Test Item Value Reference Range Interpretation Comments AGAP (test code = AGAP) 18.6 10.0-20.0 N [facility] [place]ervilleOnuzhkiPOVKDROVG9953-40-91 09:47:00 Test Item Value Reference Range Interpretation Comments Magnesium Lvl (test code = Magnesium 1.6 1.8-2.4 L Lvl) [facility] HospitalThqmhmlWICQNCLXBH3061-28-50 09:47:00 Test Item Value Reference Range Interpretation Comments Basophils # (test code 0.0 See_Comment N [Aut omated message] The = Basophils #) system which generated this result tra nsmitted reference range : <=0.2. The reference r leo was not used to int erpret this result as normal/abnormal . [facility] HospitalGmrzxvuDQWKRTYCGC1774-99-48 09:47:00 Test Item Value Reference Range Interpretation Comments Eosinophils (test code = 0.4 See_Comment N [A utomated message] The Eosinophils) system which ge nerated this result tra nsmitted reference range : <=4.0. The reference r leo was not used to int erpret this result as normal/abnormal . [facility] HospitalRhwlfpiPEUXUHMJUE7250-03-29 09:47:00 Test Item Value Reference Range Interpretation Comments Basophils (test code = 0.5 See_Comment N [Aut omated message] The Basophils) system which ge nerated this result tra nsmitted reference range : <=1.0. The reference r leo was not used to int erpret this result as normal/abnormal . [facility] HospitalVbcvaouRKCFEKVGVC2930-82-61 09:47:00 Test Item Value Reference Range Interpretation Comments Segs-Bands # (test code = Segs-Bands #) 5.9 1.5-8.1 N [facility] HospitalJlizbigRXMABUNPIP2015-74-69 09:47:00 Test Item Value Reference Range Interpretation Comments Lymphocytes # (test code = Lymphocytes 1.2 1.0-5.5 N #) [facility] HospitalIscjnejHOMFQCVSPN7250-25-43 09:47:00 Test Item Value Reference Range Interpretation Comments Monocytes # (test code 0.5 See_Comment N [Aut omated message] The = Monocytes #) system which generated this result tra nsmitted reference range : <=0.8. The reference r leo was not used to int erpret this result as normal/abnormal . [facility] HospitalMwzibdsMDBBACFFFR5280-79-57 09:47:00 Test Item Value Reference Range Interpretation Comments Eosinophils # (test code 0.0 See_Comment N [A utomated message] The = Eosinophils #) system whic h generated this result tra nsmitted reference range : <=0.5. The reference r leo was not used to int erpret this result as normal/abnormal . [facility] HospitalIsxmhgeSOCDQYTMMP3445-52-88 09:47:00 Test Item Value Reference Range Interpretation Comments Segs (test code = Segs) 76.9 45.0-75.0 H [facility] HospitalPynuzuuCAUFTBLKQC0412-31-08 09:47:00 Test Item Value Reference Range Interpretation Comments Lymphocytes (test code = Lymphocytes) 15.9 20.0-40.0 L [facility] HospitalJndonyvOWCBQAHIBW8690-92-09 09:47:00 Test Item Value Reference Range Interpretation Comments Monocytes (test code = Monocytes) 6.3 2.0-12.0 N [facility] HospitalTepdypxLXMSGHRSHD3876-70-38 09:47:00 Test Item Value Reference Range Interpretation Comments MCV (test code = MCV) 82.8 81.0-99.0 N [facility] HospitalTnreijrFSRTMTASYT4796-24-79 09:47:00 Test Item Value Reference Range Interpretation Comments Hct (test code = Hct) 39.7 36.0-48.0 N [facility] HospitalUhrpugvVJDGKGVIFE4110-06-98 09:47:00 Test Item Value Reference Range Interpretation Comments MCH (test code = MCH) 29.1 pg 27.0-31.0 N [facility] HospitalLhfiaqaPUWWTQLVBY4631-58-65 09:47:00 Test Item Value Reference Range Interpretation Comments Hgb (test code = Hgb) 14.0 12.0-16.0 N [facility] HospitalGffrpblSUBOBKFAYF2086-45-19 09:47:00 Test Item Value Reference Range Interpretation Comments MCHC (test code = MCHC) 35.2 32.0-36.0 N [facility] HospitalUiltchuLLZCVQJPWW7053-91-07 09:47:00 Test Item Value Reference Range Interpretation Comments RDW (test code = RDW) 13.9 11.5-14.5 N [facility] HospitalTzjyahzWQPXLKMRSP8267-45-45 09:47:00 Test Item Value Reference Range Interpretation Comments Platelet (test code = Platelet) 160 133-450 N [facility] HospitalSnabifyXDHSJLYRYD0321-31-21 09:47:00 Test Item Value Reference Range Interpretation Comments MPV (test code = MPV) 11.9 7.4-10.4 H [facility] HospitalYinehxoDKAQHUNRYH3864-42-57 09:47:00 Test Item Value Reference Range Interpretation Comments WBC (test code = WBC) 7.7 3.7-10.4 N [facility] HospitalYxzkaobKIQKEKKOCM0758-03-25 09:47:00 Test Item Value Reference Range Interpretation Comments RBC (test code = RBC) 4.80 4.20-5.40 N [facility]FwghaqvQTJKJGBMK9701-80-93 09:47:00 Test Item Value Reference Range Interpretation Comments Phosphorus (test code = Phosphorus) 2.5 2.5-4.5 N [facility] [place]HrehkjaEQFJHNPOW8176-98-57 09:47:00 Test Item Value Reference Range Interpretation Comments Glucose Lvl (test code = Glucose Lvl) 201 [facility]ervilleTkinmocOCEKRFYFQ1386-94-79 09:47:00 Test Item Value Reference Range Interpretation Comments BUN (test code = BUN) 7 7-22 N [facility] [place]LtjorinJNAQGSTCX7962-62-37 09:47:00 Test Item Value Reference Range Interpretation Comments CO2 (test code = CO2) 19 24-32 L [facility] [place]DhpsbbrTGWUPEQIK9830-72-51 09:47:00 Test Item Value Reference Range Interpretation Comments Creatinine Lvl (test code = Creatinine 0.3 0.5-1.4 L Lvl) [facility]ervilleBvatbqjVZJIJVUDJ7367-96-37 09:47:00 Test Item Value Reference Range Interpretation Comments Sodium Lvl (test code = Sodium Lvl) 137 135-145 N [facility] [place]VdcngqbKHGJWEKPX9243-20-19 09:47:00 Test Item Value Reference Range Interpretation Comments Chloride Lvl (test code = Chloride Lvl) 103 95-109 N [facility] [place]ervilleOauriowNFOBBGGOW4064-83-40 09:47:00 Test Item Value Reference Range Interpretation Comments Potassium Lvl (test code = Potassium 3.6 3.5-5.1 N Lvl) [facility] [place]ervilleAxjqpuvMEEJBRHUZ5581-37-26 09:47:00 Test Item Value Reference Range Interpretation Comments Calcium Lvl (test code = Calcium Lvl) 7.9 8.5-10.5 L [facility] [place]ervilleCrwcnhtRROXDILZS8827-28-25 09:47:00 Test Item Value Reference Range Interpretation Comments AGAP (test code = AGAP) 18.6 10.0-20.0 N [facility] [place]RwjoqhtISSVHQOUZ9283-95-05 09:47:00 Test Item Value Reference Range Interpretation Comments Magnesium Lvl (test code = Magnesium 1.6 1.8-2.4 L Lvl) [facility] HospitalXlwdcifOKSNBPXDQO7186-14-02 09:47:00 Test Item Value Reference Range Interpretation Comments Basophils # (test code 0.0 See_Comment N [Aut omated message] The = Basophils #) system which generated this result tra nsmitted reference range : <=0.2. The reference r leo was not used to int erpret this result as normal/abnormal . [facility] HospitalPokyiteZUWMINJCYY9893-90-52 09:47:00 Test Item Value Reference Range Interpretation Comments Eosinophils (test code = 0.4 See_Comment N [A utomated message] The Eosinophils) system which ge nerated this result tra nsmitted reference range : <=4.0. The reference r leo was not used to int erpret this result as normal/abnormal . [facility] HospitalGxvfhkmYTYWCAMVFS1084-14-99 09:47:00 Test Item Value Reference Range Interpretation Comments Basophils (test code = 0.5 See_Comment N [Aut omated message] The Basophils) system which ge nerated this result tra nsmitted reference range : <=1.0. The reference r leo was not used to int erpret this result as normal/abnormal . [facility] HospitalXqcuncpWCPUCSZTPX9240-62-44 09:47:00 Test Item Value Reference Range Interpretation Comments Segs-Bands # (test code = Segs-Bands #) 5.9 1.5-8.1 N [facility] HospitalMgtgaabXVPDLDDABO6598-48-28 09:47:00 Test Item Value Reference Range Interpretation Comments Lymphocytes # (test code = Lymphocytes 1.2 1.0-5.5 N #) [facility] HospitalFxsblygFKGDKGEEWF9381-62-10 09:47:00 Test Item Value Reference Range Interpretation Comments Monocytes # (test code 0.5 See_Comment N [Aut omated message] The = Monocytes #) system which generated this result tra nsmitted reference range : <=0.8. The reference r leo was not used to int erpret this result as normal/abnormal . [facility] HospitalTdaizptKAKRDSYMML4972-36-48 09:47:00 Test Item Value Reference Range Interpretation Comments Eosinophils # (test code 0.0 See_Comment N [A utomated message] The = Eosinophils #) system whic h generated this result tra nsmitted reference range : <=0.5. The reference r leo was not used to int erpret this result as normal/abnormal . [facility] HospitalPhqvhsiWYDOQMCXSE1364-80-44 09:47:00 Test Item Value Reference Range Interpretation Comments Segs (test code = Segs) 76.9 45.0-75.0 H [facility] HospitalLcavvvhAXAJNDFRTH8295-82-29 09:47:00 Test Item Value Reference Range Interpretation Comments Lymphocytes (test code = Lymphocytes) 15.9 20.0-40.0 L [facility] HospitalLeekerzKHRIFMEKBO8234-43-43 09:47:00 Test Item Value Reference Range Interpretation Comments Monocytes (test code = Monocytes) 6.3 2.0-12.0 N [facility] HospitalYmljolcPZJOYTMFGR9110-17-71 09:47:00 Test Item Value Reference Range Interpretation Comments MCV (test code = MCV) 82.8 81.0-99.0 N [facility] HospitalNkzgzmwKMJNJRILTT5839-13-50 09:47:00 Test Item Value Reference Range Interpretation Comments Hct (test code = Hct) 39.7 36.0-48.0 N [facility] HospitalDsylvpsFUSTPYCMPE6505-37-95 09:47:00 Test Item Value Reference Range Interpretation Comments MCH (test code = MCH) 29.1 pg 27.0-31.0 N [facility] HospitalAliyamsXDMOGRYIKJ3534-04-29 09:47:00 Test Item Value Reference Range Interpretation Comments Hgb (test code = Hgb) 14.0 12.0-16.0 N [facility] HospitalHjongwyTBQCKHZDXV9388-22-06 09:47:00 Test Item Value Reference Range Interpretation Comments MCHC (test code = MCHC) 35.2 32.0-36.0 N [facility] HospitalBsakfufGDXFHSHGTS3799-81-72 09:47:00 Test Item Value Reference Range Interpretation Comments RDW (test code = RDW) 13.9 11.5-14.5 N [facility] HospitalVqhqubuDRAFNXVGGN6312-91-02 09:47:00 Test Item Value Reference Range Interpretation Comments Platelet (test code = Platelet) 160 133-450 N [facility] HospitalWcpidqzORNOESEHKG2977-55-23 09:47:00 Test Item Value Reference Range Interpretation Comments MPV (test code = MPV) 11.9 7.4-10.4 H [facility] HospitalDssgdpwXJRUSRTKNL1123-58-36 09:47:00 Test Item Value Reference Range Interpretation Comments WBC (test code = WBC) 7.7 3.7-10.4 N [facility] HospitalEyfdwlkVFKMSKLUDG3941-03-20 09:47:00 Test Item Value Reference Range Interpretation Comments RBC (test code = RBC) 4.80 4.20-5.40 N [facility]TrligmyAJFMPYVQB6635-55-83 09:47:00 Test Item Value Reference Range Interpretation Comments Phosphorus (test code = Phosphorus) 2.5 2.5-4.5 N [facility]YevwqagKJTQLYENS3185-86-56 09:47:00 Test Item Value Reference Range Interpretation Comments Glucose Lvl (test code = Glucose Lvl) 201 [facility]ervilleSirqospZIWGZGPLK7370-15-14 09:47:00 Test Item Value Reference Range Interpretation Comments BUN (test code = BUN) 7 7-22 N [facility]WhldqvbGJQZOGGNS3821-63-53 09:47:00 Test Item Value Reference Range Interpretation Comments CO2 (test code = CO2) 19 24-32 L [facility] [place]JdifmxsEPROZYEQH7309-46-01 09:47:00 Test Item Value Reference Range Interpretation Comments Creatinine Lvl (test code = Creatinine 0.3 0.5-1.4 L Lvl) [facility]YbkzkqoIGPWWGQDH0854-27-17 09:47:00 Test Item Value Reference Range Interpretation Comments Sodium Lvl (test code = Sodium Lvl) 137 135-145 N [facility] [place]ervilleZqazplkGMKXHHVEI1570-70-05 09:47:00 Test Item Value Reference Range Interpretation Comments Chloride Lvl (test code = Chloride Lvl) 103 95-109 N [facility]DrbijtgFJTDPNAOX7948-11-10 09:47:00 Test Item Value Reference Range Interpretation Comments Potassium Lvl (test code = Potassium 3.6 3.5-5.1 N Lvl) [facility]OjsuabhQIWTQXHNC7056-82-30 09:47:00 Test Item Value Reference Range Interpretation Comments Calcium Lvl (test code = Calcium Lvl) 7.9 8.5-10.5 L [facility] [place]FtrbgmvJCHGPYCLQ2829-05-80 09:47:00 Test Item Value Reference Range Interpretation Comments AGAP (test code = AGAP) 18.6 10.0-20.0 N [facility] [place]XrmdxdjPIVZVAQPB6908-58-76 09:47:00 Test Item Value Reference Range Interpretation Comments Magnesium Lvl (test code = Magnesium 1.6 1.8-2.4 L Lvl) [facility] HospitalBtbbcbpZTNIUFYNTF0700-01-37 09:47:00 Test Item Value Reference Range Interpretation Comments Basophils # (test code 0.0 See_Comment N [Aut omated message] The = Basophils #) system which generated this result tra nsmitted reference range : <=0.2. The reference r leo was not used to int erpret this result as normal/abnormal . [facility] HospitalMeuxdiaHGKBFNWIOB4622-59-65 09:47:00 Test Item Value Reference Range Interpretation Comments Eosinophils (test code = 0.4 See_Comment N [A utomated message] The Eosinophils) system which ge nerated this result tra nsmitted reference range : <=4.0. The reference r leo was not used to int erpret this result as normal/abnormal . [facility] HospitalYhbqbwkPDBBNKEKUK5003-45-79 09:47:00 Test Item Value Reference Range Interpretation Comments Basophils (test code = 0.5 See_Comment N [Aut omated message] The Basophils) system which ge nerated this result tra nsmitted reference range : <=1.0. The reference r leo was not used to int erpret this result as normal/abnormal . [facility] HospitalHlhqgeqMYGYWELXZC0704-83-94 09:47:00 Test Item Value Reference Range Interpretation Comments Segs-Bands # (test code = Segs-Bands #) 5.9 1.5-8.1 N [facility] HospitalEzinfnwXAKVINMXGQ6499-04-30 09:47:00 Test Item Value Reference Range Interpretation Comments Lymphocytes # (test code = Lymphocytes 1.2 1.0-5.5 N #) [facility] HospitalYwhowkrIXTVTSCCYB5546-36-61 09:47:00 Test Item Value Reference Range Interpretation Comments Monocytes # (test code 0.5 See_Comment N [Aut omated message] The = Monocytes #) system which generated this result tra nsmitted reference range : <=0.8. The reference r leo was not used to int erpret this result as normal/abnormal . [facility] HospitalPliprorEJHTXDYLAX7575-39-79 09:47:00 Test Item Value Reference Range Interpretation Comments Eosinophils # (test code 0.0 See_Comment N [A utomated message] The = Eosinophils #) system whic h generated this result tra nsmitted reference range : <=0.5. The reference r leo was not used to int erpret this result as normal/abnormal . [facility] HospitalVyjqgkfPBBEJWUMSQ1201-93-47 09:47:00 Test Item Value Reference Range Interpretation Comments Segs (test code = Segs) 76.9 45.0-75.0 H [facility] HospitalGrmeotgANTNLYSUHN4148-90-78 09:47:00 Test Item Value Reference Range Interpretation Comments Lymphocytes (test code = Lymphocytes) 15.9 20.0-40.0 L [facility] HospitalBnwafrcZRGADHOBWL5930-37-78 09:47:00 Test Item Value Reference Range Interpretation Comments Monocytes (test code = Monocytes) 6.3 2.0-12.0 N [facility] HospitalTqhykhkBBVWBYZFQW0189-03-56 09:47:00 Test Item Value Reference Range Interpretation Comments MCV (test code = MCV) 82.8 81.0-99.0 N [facility] HospitalVvfzbooXMIXEOFDYP2510-04-38 09:47:00 Test Item Value Reference Range Interpretation Comments Hct (test code = Hct) 39.7 36.0-48.0 N [facility] HospitalEshosxxHISFGSEHZS4352-48-77 09:47:00 Test Item Value Reference Range Interpretation Comments MCH (test code = MCH) 29.1 pg 27.0-31.0 N [facility] HospitalTqyjznoQUXERFIOXV1231-73-40 09:47:00 Test Item Value Reference Range Interpretation Comments Hgb (test code = Hgb) 14.0 12.0-16.0 N [facility] HospitalFkvgukiBVDZGEYWMP1474-10-70 09:47:00 Test Item Value Reference Range Interpretation Comments MCHC (test code = MCHC) 35.2 32.0-36.0 N [facility] HospitalJkgwtanYUMLFQTQPN9664-81-28 09:47:00 Test Item Value Reference Range Interpretation Comments RDW (test code = RDW) 13.9 11.5-14.5 N [facility] HospitalQbamwjqQYELXTYVUU5605-32-14 09:47:00 Test Item Value Reference Range Interpretation Comments Platelet (test code = Platelet) 160 133-450 N [facility] HospitalLtgwfmsXAMEPCGEPG2001-90-11 09:47:00 Test Item Value Reference Range Interpretation Comments MPV (test code = MPV) 11.9 7.4-10.4 H [facility] HospitalFhrukbwAYPHVGMBTN6701-85-71 09:47:00 Test Item Value Reference Range Interpretation Comments WBC (test code = WBC) 7.7 3.7-10.4 N [facility] HospitalXmbykoiOCBEKNSNKE2380-95-37 09:47:00 Test Item Value Reference Range Interpretation Comments RBC (test code = RBC) 4.80 4.20-5.40 N [facility]CpyljwgEPWCAFFDU9832-19-30 10:28:00 Test Item Value Reference Range Interpretation Comments Phosphorus (test code = Phosphorus) 2.6 2.5-4.5 N [facility] [place]TrzhuxxOWRTNFBLZ2954-49-97 10:28:00 Test Item Value Reference Range Interpretation Comments Magnesium Lvl (test code = Magnesium 1.8 1.8-2.4 N Lvl) [facility]PtxdkpkVRZYZGDYN1689-18-39 10:28:00 Test Item Value Reference Range Interpretation Comments Potassium Lvl (test code = Potassium 3.7 3.5-5.1 N Lvl) [facility] [place]HsbywnuOVBFQPZKC7303-17-94 10:28:00 Test Item Value Reference Range Interpretation Comments Sodium Lvl (test code = Sodium Lvl) 137 135-145 N [facility] [place]ervilleNgersgnMJFCIOZHP5865-26-31 10:28:00 Test Item Value Reference Range Interpretation Comments Creatinine Lvl (test code = Creatinine 0.6 0.5-1.4 N Lvl) [facility]EckmqtuMSAJIWCEL0187-05-03 10:28:00 Test Item Value Reference Range Interpretation Comments BUN (test code = BUN) 16 7-22 N [facility] [place]EdpjqvbRAEXBIMRA5447-21-38 10:28:00 Test Item Value Reference Range Interpretation Comments Glucose Lvl (test code = Glucose Lvl) 200 [facility] [place]ervilleGlnwbzdLQYOVUIAC8005-69-85 10:28:00 Test Item Value Reference Range Interpretation Comments Calcium Lvl (test code = Calcium Lvl) 8.3 8.5-10.5 L [facility] [place]ervilleYyhrjarORNOYQHHR7618-64-46 10:28:00 Test Item Value Reference Range Interpretation Comments AGAP (test code = AGAP) 19.7 10.0-20.0 N [facility] [place]IozpsqrDBSXVSCPQ0457-00-98 10:28:00 Test Item Value Reference Range Interpretation Comments Chloride Lvl (test code = Chloride Lvl) 99 95-109 N [facility] [place]CmeobtmZCLHFNMRM7995-87-11 10:28:00 Test Item Value Reference Range Interpretation Comments CO2 (test code = CO2) 22 24-32 L [facility] HospitalMutlrkpOLMHDRCUVV0096-01-91 10:28:00 Test Item Value Reference Range Interpretation Comments Platelet (test code = Platelet) 172 133-450 N [facility] HospitalBqtzeqfPYHETYRYOV2245-29-46 10:28:00 Test Item Value Reference Range Interpretation Comments MPV (test code = MPV) 12.0 7.4-10.4 H [facility] HospitalZqkqtqoRECUWBOMTM5378-69-41 10:28:00 Test Item Value Reference Range Interpretation Comments WBC (test code = WBC) 7.3 3.7-10.4 N [facility] HospitalXziwmxzWCUWWPMHNU9053-53-96 10:28:00 Test Item Value Reference Range Interpretation Comments RDW (test code = RDW) 14.6 11.5-14.5 H [facility] HospitalYwmviouMJVTYMEWDN3039-41-09 10:28:00 Test Item Value Reference Range Interpretation Comments MCHC (test code = MCHC) 35.0 32.0-36.0 N [facility] HospitalWwmprlcYQHAPSZMJT8205-60-06 10:28:00 Test Item Value Reference Range Interpretation Comments RBC (test code = RBC) 4.54 4.20-5.40 N [facility] HospitalTympgigCWLAGHQYOP5121-47-41 10:28:00 Test Item Value Reference Range Interpretation Comments Hct (test code = Hct) 37.6 36.0-48.0 N [facility] HospitalSzcgxtyBNIFRSYPGC3238-07-00 10:28:00 Test Item Value Reference Range Interpretation Comments MCV (test code = MCV) 82.9 81.0-99.0 N [facility] HospitalUmokbjxCXFEXDXYCP4522-11-75 10:28:00 Test Item Value Reference Range Interpretation Comments MCH (test code = MCH) 29.0 pg 27.0-31.0 N [facility] HospitalCyjutbxQSZOHVESDV1839-16-89 10:28:00 Test Item Value Reference Range Interpretation Comments Hgb (test code = Hgb) 13.2 12.0-16.0 N [facility] HospitalXmzwghmHAIYZWBEDY0210-55-46 10:28:00 Test Item Value Reference Range Interpretation Comments Elliptocyte (test code = Slight A Elliptocyte) *ABN*(08/21/2011 04:28:00) [facility] HospitalFdbjpdvTTNQCNNAZQ9933-76-23 10:28:00 Test Item Value Reference Range Interpretation Comments Polychrom (test code = Slight (08/21/2011 N Polychrom) 04:28:00) [facility] HospitalRocgqurFADSOKTILX8564-91-60 10:28:00 Test Item Value Reference Range Interpretation Comments Basophils # (test code 0.0 See_Comment N [Aut omated message] The = Basophils #) system which generated this result tra nsmitted reference range : <=0.2. The reference r leo was not used to int erpret this result as normal/abnormal . [facility] HospitalGnqtzneXZJSXWGYII1231-54-60 10:28:00 Test Item Value Reference Range Interpretation Comments Hypochrom (test code = Slight (08/21/2011 N Hypochrom) 04:28:00) [facility] HospitalFrplnxmMUAVIWXIDE0799-58-01 10:28:00 Test Item Value Reference Range Interpretation Comments Monocytes # (test code 0.6 See_Comment N [Aut omated message] The = Monocytes #) system which generated this result tra nsmitted reference range : <=0.8. The reference r leo was not used to int erpret this result as normal/abnormal . [facility] HospitalSdmaolgXXACEUCHLR0605-50-55 10:28:00 Test Item Value Reference Range Interpretation Comments Eosinophils # (test code 0.0 See_Comment N [A utomated message] The = Eosinophils #) system whic h generated this result tra nsmitted reference range : <=0.5. The reference r leo was not used to int erpret this result as normal/abnormal . [facility] HospitalGjbzbceIUZVPPASNZ8721-65-81 10:28:00 Test Item Value Reference Range Interpretation Comments Segs-Bands # (test code = Segs-Bands #) 5.3 1.5-8.1 N [facility] HospitalNsutugxTQNYWCDXAR0106-71-97 10:28:00 Test Item Value Reference Range Interpretation Comments Lymphocytes # (test code = Lymphocytes 1.3 1.0-5.5 N #) [facility] HospitalTopkoyhGZHQNUKQXX9100-12-91 10:28:00 Test Item Value Reference Range Interpretation Comments Basophils (test code = 0.5 See_Comment N [Aut omated message] The Basophils) system which ge nerated this result tra nsmitted reference range : <=1.0. The reference r leo was not used to int erpret this result as normal/abnormal . [facility] HospitalCddupbeKFUHYWRCPS1985-00-26 10:28:00 Test Item Value Reference Range Interpretation Comments Monocytes (test code = Monocytes) 8.5 2.0-12.0 N [facility] HospitalBybpzedSKGNXSGIBD4348-24-52 10:28:00 Test Item Value Reference Range Interpretation Comments Eosinophils (test code = 0.3 See_Comment N [A utomated message] The Eosinophils) system which ge nerated this result tra nsmitted reference range : <=4.0. The reference r leo was not used to int erpret this result as normal/abnormal . [facility] HospitalOnorekkFWHANECERC3943-80-27 10:28:00 Test Item Value Reference Range Interpretation Comments Lymphocytes (test code = Lymphocytes) 17.3 20.0-40.0 L [facility] HospitalDnxksxtDAQWEVLLQU9241-84-61 10:28:00 Test Item Value Reference Range Interpretation Comments Segs (test code = Segs) 73.4 45.0-75.0 N [facility]UblgmksLVBYTKYXH3698-22-48 10:28:00 Test Item Value Reference Range Interpretation Comments Phosphorus (test code = Phosphorus) 2.6 2.5-4.5 N [facility] [place]IskypfqNFJJSVWNB2496-58-47 10:28:00 Test Item Value Reference Range Interpretation Comments Magnesium Lvl (test code = Magnesium 1.8 1.8-2.4 N Lvl) [facility]NlfxjfcJFLIVBIYK5145-60-83 10:28:00 Test Item Value Reference Range Interpretation Comments Potassium Lvl (test code = Potassium 3.7 3.5-5.1 N Lvl) [facility] [place]DxwmgzlPNHKOQOGI4968-54-54 10:28:00 Test Item Value Reference Range Interpretation Comments Sodium Lvl (test code = Sodium Lvl) 137 135-145 N [facility] [place]MdiugmsPEGRIAUIZ9958-20-58 10:28:00 Test Item Value Reference Range Interpretation Comments Creatinine Lvl (test code = Creatinine 0.6 0.5-1.4 N Lvl) [facility] [place]PirdascSZYCYBSNV8183-96-21 10:28:00 Test Item Value Reference Range Interpretation Comments BUN (test code = BUN) 16 7-22 N [facility] [place]TttwjihDLFIEKDFZ8863-36-65 10:28:00 Test Item Value Reference Range Interpretation Comments Glucose Lvl (test code = Glucose Lvl) 200 [facility] [place]VwcynqyEUESZVGVW0822-76-29 10:28:00 Test Item Value Reference Range Interpretation Comments Calcium Lvl (test code = Calcium Lvl) 8.3 8.5-10.5 L [facility]OdcwnkdEBCZGZJRE5430-94-23 10:28:00 Test Item Value Reference Range Interpretation Comments AGAP (test code = AGAP) 19.7 10.0-20.0 N [facility]IerhtknPLYSBVSRI8803-95-49 10:28:00 Test Item Value Reference Range Interpretation Comments Chloride Lvl (test code = Chloride Lvl) 99 95-109 N [facility]GgkdzvcLSGYHJCWD9777-51-22 10:28:00 Test Item Value Reference Range Interpretation Comments CO2 (test code = CO2) 22 24-32 L [facility] HospitalWcauidcJEZNPOQGRC7947-35-21 10:28:00 Test Item Value Reference Range Interpretation Comments Platelet (test code = Platelet) 172 133-450 N [facility] HospitalNdwmekrRWELDIJXVI1562-57-95 10:28:00 Test Item Value Reference Range Interpretation Comments MPV (test code = MPV) 12.0 7.4-10.4 H [facility] HospitalQpnmpsfWYMEMUBLDP4431-18-48 10:28:00 Test Item Value Reference Range Interpretation Comments WBC (test code = WBC) 7.3 3.7-10.4 N [facility] HospitalZzixjpbYOHDCMDDTM6086-98-59 10:28:00 Test Item Value Reference Range Interpretation Comments RDW (test code = RDW) 14.6 11.5-14.5 H [facility] HospitalQojfsfzTDZEVMYVPW4631-02-89 10:28:00 Test Item Value Reference Range Interpretation Comments MCHC (test code = MCHC) 35.0 32.0-36.0 N [facility] HospitalJczcdyjZCSCNXGANJ5549-28-80 10:28:00 Test Item Value Reference Range Interpretation Comments RBC (test code = RBC) 4.54 4.20-5.40 N [facility] HospitalPxdfycvXKNGFMGNEH4979-66-31 10:28:00 Test Item Value Reference Range Interpretation Comments Hct (test code = Hct) 37.6 36.0-48.0 N [facility] HospitalDvrnjnfALWNZSHTMI4493-95-90 10:28:00 Test Item Value Reference Range Interpretation Comments MCV (test code = MCV) 82.9 81.0-99.0 N [facility] HospitalAstvwljGRFSLMETBI1435-34-20 10:28:00 Test Item Value Reference Range Interpretation Comments MCH (test code = MCH) 29.0 pg 27.0-31.0 N [facility] HospitalYmyryagUWMOAGICCG3958-36-39 10:28:00 Test Item Value Reference Range Interpretation Comments Hgb (test code = Hgb) 13.2 12.0-16.0 N [facility] HospitalNgvnzypXMZGQJJWXX8146-45-42 10:28:00 Test Item Value Reference Range Interpretation Comments Elliptocyte (test code = Slight A Elliptocyte) *ABN*(08/21/2011 04:28:00) [facility] HospitalRkgdvtrBOCLFXNBNX6960-78-91 10:28:00 Test Item Value Reference Range Interpretation Comments Polychrom (test code = Slight (08/21/2011 N Polychrom) 04:28:00) [facility] HospitalCuqccxrPLCPBXRMCM0114-52-10 10:28:00 Test Item Value Reference Range Interpretation Comments Basophils # (test code 0.0 See_Comment N [Aut omated message] The = Basophils #) system which generated this result tra nsmitted reference range : <=0.2. The reference r leo was not used to int erpret this result as normal/abnormal . [facility] HospitalOkyqoryXBQHURWPSP4945-34-57 10:28:00 Test Item Value Reference Range Interpretation Comments Hypochrom (test code = Slight (08/21/2011 N Hypochrom) 04:28:00) [facility] HospitalMgtdegfWGGIWQOXYB7288-50-27 10:28:00 Test Item Value Reference Range Interpretation Comments Monocytes # (test code 0.6 See_Comment N [Aut omated message] The = Monocytes #) system which generated this result tra nsmitted reference range : <=0.8. The reference r leo was not used to int erpret this result as normal/abnormal . [facility] HospitalRrefbiuZVIQJSAKNP9270-85-55 10:28:00 Test Item Value Reference Range Interpretation Comments Eosinophils # (test code 0.0 See_Comment N [A utomated message] The = Eosinophils #) system whic h generated this result tra nsmitted reference range : <=0.5. The reference r leo was not used to int erpret this result as normal/abnormal . [facility] HospitalUzqfccnVRUZEYBDJD9267-51-68 10:28:00 Test Item Value Reference Range Interpretation Comments Segs-Bands # (test code = Segs-Bands #) 5.3 1.5-8.1 N [facility] HospitalDpfclvdTIEUQILZXB8001-40-89 10:28:00 Test Item Value Reference Range Interpretation Comments Lymphocytes # (test code = Lymphocytes 1.3 1.0-5.5 N #) [facility] HospitalOvivjcaSOKETNWZVU5452-19-08 10:28:00 Test Item Value Reference Range Interpretation Comments Basophils (test code = 0.5 See_Comment N [Aut omated message] The Basophils) system which ge nerated this result tra nsmitted reference range : <=1.0. The reference r leo was not used to int erpret this result as normal/abnormal . [facility] HospitalDykjmvhJMOLNJEQWY5362-78-04 10:28:00 Test Item Value Reference Range Interpretation Comments Monocytes (test code = Monocytes) 8.5 2.0-12.0 N [facility] HospitalFhptrazRCDTQOTGIK1747-18-72 10:28:00 Test Item Value Reference Range Interpretation Comments Eosinophils (test code = 0.3 See_Comment N [A utomated message] The Eosinophils) system which ge nerated this result tra nsmitted reference range : <=4.0. The reference r leo was not used to int erpret this result as normal/abnormal . [facility] HospitalZsqsldiSYDLGYGLBW3258-02-76 10:28:00 Test Item Value Reference Range Interpretation Comments Lymphocytes (test code = Lymphocytes) 17.3 20.0-40.0 L [facility] HospitalAnxagxaCCFXVJXCWB1118-45-36 10:28:00 Test Item Value Reference Range Interpretation Comments Segs (test code = Segs) 73.4 45.0-75.0 N [facility]MkubcnrRXMPWLERJ5875-65-38 10:28:00 Test Item Value Reference Range Interpretation Comments Phosphorus (test code = Phosphorus) 2.6 2.5-4.5 N [facility] [place]ervilleSnueqykFTZRQAVFY9832-77-65 10:28:00 Test Item Value Reference Range Interpretation Comments Magnesium Lvl (test code = Magnesium 1.8 1.8-2.4 N Lvl) [facility]UmswpciODIRCVJZU8029-13-35 10:28:00 Test Item Value Reference Range Interpretation Comments Potassium Lvl (test code = Potassium 3.7 3.5-5.1 N Lvl) [facility] [place]SshobyfYFQRVESGP1534-45-62 10:28:00 Test Item Value Reference Range Interpretation Comments Sodium Lvl (test code = Sodium Lvl) 137 135-145 N [facility] [place]ervilleAluqttaQVVRSPWLO1212-95-70 10:28:00 Test Item Value Reference Range Interpretation Comments Creatinine Lvl (test code = Creatinine 0.6 0.5-1.4 N Lvl) [facility] [place]TcvtcexWZXDWJUNJ2021-86-82 10:28:00 Test Item Value Reference Range Interpretation Comments BUN (test code = BUN) 16 7-22 N [facility] [place]ervilleDngjdxpSJLZAUTOM6275-99-83 10:28:00 Test Item Value Reference Range Interpretation Comments Glucose Lvl (test code = Glucose Lvl) 200 [facility] [place]ervilleDmqhiczGHGBBKBLY9870-84-80 10:28:00 Test Item Value Reference Range Interpretation Comments Calcium Lvl (test code = Calcium Lvl) 8.3 8.5-10.5 L [facility] [place]AsjtrmaDGAWHMJNO5439-77-79 10:28:00 Test Item Value Reference Range Interpretation Comments AGAP (test code = AGAP) 19.7 10.0-20.0 N [facility]RgviwbeTGWNYAMBQ8742-50-57 10:28:00 Test Item Value Reference Range Interpretation Comments Chloride Lvl (test code = Chloride Lvl) 99 95-109 N [facility] [place]ervilleLdxnyhxEQFTMYRLZ2751-97-48 10:28:00 Test Item Value Reference Range Interpretation Comments CO2 (test code = CO2) 22 24-32 L [facility] HospitalFbimgsoFQXNWCNZGA0268-95-82 10:28:00 Test Item Value Reference Range Interpretation Comments Platelet (test code = Platelet) 172 133-450 N [facility] HospitalUxqpvbpUIPANPTNKH8453-05-12 10:28:00 Test Item Value Reference Range Interpretation Comments MPV (test code = MPV) 12.0 7.4-10.4 H [facility] HospitalNweiuzxMNZNHQWCYC1365-33-28 10:28:00 Test Item Value Reference Range Interpretation Comments WBC (test code = WBC) 7.3 3.7-10.4 N [facility] HospitalHbbvmqfXCQARJAOFI8275-55-69 10:28:00 Test Item Value Reference Range Interpretation Comments RDW (test code = RDW) 14.6 11.5-14.5 H [facility] HospitalVpsclwbLFZXUPUYRU9924-70-60 10:28:00 Test Item Value Reference Range Interpretation Comments MCHC (test code = MCHC) 35.0 32.0-36.0 N [facility] HospitalCpfljmrPGLHWARJPX2796-72-29 10:28:00 Test Item Value Reference Range Interpretation Comments RBC (test code = RBC) 4.54 4.20-5.40 N [facility] HospitalFfxmawgMNBOXEBBTL4986-18-37 10:28:00 Test Item Value Reference Range Interpretation Comments Hct (test code = Hct) 37.6 36.0-48.0 N [facility] HospitalRnroxiqJLHZCNPKYE3469-67-90 10:28:00 Test Item Value Reference Range Interpretation Comments MCV (test code = MCV) 82.9 81.0-99.0 N [facility] HospitalRxueilnTBAYMHTVNF5193-58-58 10:28:00 Test Item Value Reference Range Interpretation Comments MCH (test code = MCH) 29.0 pg 27.0-31.0 N [facility] HospitalTrmksxrXVMVQFYKNQ0056-88-03 10:28:00 Test Item Value Reference Range Interpretation Comments Hgb (test code = Hgb) 13.2 12.0-16.0 N [facility] HospitalTvaaxanLISCLMVISN3635-41-46 10:28:00 Test Item Value Reference Range Interpretation Comments Elliptocyte (test code = Slight A Elliptocyte) *ABN*(08/21/2011 04:28:00) [facility] HospitalVhjydxjWIERXIVFEV8744-13-08 10:28:00 Test Item Value Reference Range Interpretation Comments Polychrom (test code = Slight (08/21/2011 N Polychrom) 04:28:00) [facility] HospitalSgrkkdeCHHCHRNVBY6987-20-60 10:28:00 Test Item Value Reference Range Interpretation Comments Basophils # (test code 0.0 See_Comment N [Aut omated message] The = Basophils #) system which generated this result tra nsmitted reference range : <=0.2. The reference r leo was not used to int erpret this result as normal/abnormal . [facility] HospitalEitpnxxJLBHWDAOWN3514-44-90 10:28:00 Test Item Value Reference Range Interpretation Comments Hypochrom (test code = Slight (08/21/2011 N Hypochrom) 04:28:00) [facility] HospitalZqknmzaAHPRMWHLJA9392-76-18 10:28:00 Test Item Value Reference Range Interpretation Comments Monocytes # (test code 0.6 See_Comment N [Aut omated message] The = Monocytes #) system which generated this result tra nsmitted reference range : <=0.8. The reference r leo was not used to int erpret this result as normal/abnormal . [facility] HospitalAeabsneFODXDEKREZ4143-60-38 10:28:00 Test Item Value Reference Range Interpretation Comments Eosinophils # (test code 0.0 See_Comment N [A utomated message] The = Eosinophils #) system whic h generated this result tra nsmitted reference range : <=0.5. The reference r leo was not used to int erpret this result as normal/abnormal . [facility] HospitalAwrxqzgQGTKJMQVSO3882-50-05 10:28:00 Test Item Value Reference Range Interpretation Comments Segs-Bands # (test code = Segs-Bands #) 5.3 1.5-8.1 N [facility] HospitalXshowmfKJLXNCXHIY7931-06-82 10:28:00 Test Item Value Reference Range Interpretation Comments Lymphocytes # (test code = Lymphocytes 1.3 1.0-5.5 N #) [facility] HospitalJxsrhkvWCEHIZIYPR2460-77-15 10:28:00 Test Item Value Reference Range Interpretation Comments Basophils (test code = 0.5 See_Comment N [Aut omated message] The Basophils) system which ge nerated this result tra nsmitted reference range : <=1.0. The reference r leo was not used to int erpret this result as normal/abnormal . [facility] HospitalJkdypktJDKSUTFOEC3636-70-73 10:28:00 Test Item Value Reference Range Interpretation Comments Monocytes (test code = Monocytes) 8.5 2.0-12.0 N [facility] HospitalYgliwnlMSQUBRZGSD6982-62-87 10:28:00 Test Item Value Reference Range Interpretation Comments Eosinophils (test code = 0.3 See_Comment N [A utomated message] The Eosinophils) system which ge nerated this result tra nsmitted reference range : <=4.0. The reference r leo was not used to int erpret this result as normal/abnormal . [facility] HospitalNllggnqBWKWIQJKYE0346-21-97 10:28:00 Test Item Value Reference Range Interpretation Comments Lymphocytes (test code = Lymphocytes) 17.3 20.0-40.0 L [facility] HospitalKssqodxCMAEGLRCIP9517-00-49 10:28:00 Test Item Value Reference Range Interpretation Comments Segs (test code = Segs) 73.4 45.0-75.0 N [facility]HfzjbkjIBGSSHOMI2944-18-25 10:28:00 Test Item Value Reference Range Interpretation Comments Phosphorus (test code = Phosphorus) 2.6 2.5-4.5 N [facility] [place]BtzgbazMFZMLHOGZ4236-89-66 10:28:00 Test Item Value Reference Range Interpretation Comments Magnesium Lvl (test code = Magnesium 1.8 1.8-2.4 N Lvl) [facility] [place]ervilleCdzpvieCODJZBNSL2987-33-39 10:28:00 Test Item Value Reference Range Interpretation Comments Potassium Lvl (test code = Potassium 3.7 3.5-5.1 N Lvl) [facility] [place]FhmiuqeGCADKZHYN7331-67-12 10:28:00 Test Item Value Reference Range Interpretation Comments Sodium Lvl (test code = Sodium Lvl) 137 135-145 N [facility] [place]ervilleNekryslAZPRVRYXM2947-14-12 10:28:00 Test Item Value Reference Range Interpretation Comments Creatinine Lvl (test code = Creatinine 0.6 0.5-1.4 N Lvl) [facility] [place]ervilleHepzvivFGORNZOJP3832-84-87 10:28:00 Test Item Value Reference Range Interpretation Comments BUN (test code = BUN) 16 7-22 N [facility] [place]KsgmyvlBVPTILJCP7177-37-96 10:28:00 Test Item Value Reference Range Interpretation Comments Glucose Lvl (test code = Glucose Lvl) 200 [facility] [place]JnjuffnPMBZNFEHG7194-96-44 10:28:00 Test Item Value Reference Range Interpretation Comments Calcium Lvl (test code = Calcium Lvl) 8.3 8.5-10.5 L [facility] [place]ervilleZiusmylTNIFZVADC4889-53-11 10:28:00 Test Item Value Reference Range Interpretation Comments AGAP (test code = AGAP) 19.7 10.0-20.0 N [facility] [place]TCVOPFY8736[place]95-55 10:28:00 Test Item Value Reference Range Interpretation Comments Chloride Lvl (test code = Chloride Lvl) 99 95-109 N [facility] [place]AuipkocWEBCNUEWN7021-27-91 10:28:00 Test Item Value Reference Range Interpretation Comments CO2 (test code = CO2) 22 24-32 L [facility] HospitalYbzfxasQVBMTKASWB2260-94-47 10:28:00 Test Item Value Reference Range Interpretation Comments Platelet (test code = Platelet) 172 133-450 N [facility] HospitalZxsimneYBWYEPLAXP9258-18-61 10:28:00 Test Item Value Reference Range Interpretation Comments MPV (test code = MPV) 12.0 7.4-10.4 H [facility] HospitalWycfskqWOUDCMSIFC9004-73-00 10:28:00 Test Item Value Reference Range Interpretation Comments WBC (test code = WBC) 7.3 3.7-10.4 N [facility] HospitalVxncfupJUQQPKQSHQ2795-59-60 10:28:00 Test Item Value Reference Range Interpretation Comments RDW (test code = RDW) 14.6 11.5-14.5 H [facility] HospitalInucnoeVKQNDTHBSN7693-52-77 10:28:00 Test Item Value Reference Range Interpretation Comments MCHC (test code = MCHC) 35.0 32.0-36.0 N [facility] HospitalJekkbgkKQEXMICWGK7535-47-93 10:28:00 Test Item Value Reference Range Interpretation Comments RBC (test code = RBC) 4.54 4.20-5.40 N [facility] HospitalExoqsoqENUVIWAYEA5851-03-54 10:28:00 Test Item Value Reference Range Interpretation Comments Hct (test code = Hct) 37.6 36.0-48.0 N [facility] HospitalXslblegJHDETKTOWL7920-69-93 10:28:00 Test Item Value Reference Range Interpretation Comments MCV (test code = MCV) 82.9 81.0-99.0 N [facility] HospitalFmfeporWHVDASHIGW9353-25-71 10:28:00 Test Item Value Reference Range Interpretation Comments MCH (test code = MCH) 29.0 pg 27.0-31.0 N [facility] HospitalNsaxhyxNRUGDPVZHB1187-41-46 10:28:00 Test Item Value Reference Range Interpretation Comments Hgb (test code = Hgb) 13.2 12.0-16.0 N [facility] HospitalCqsgdhkDMSWKIIOFG6922-38-66 10:28:00 Test Item Value Reference Range Interpretation Comments Elliptocyte (test code = Slight A Elliptocyte) *ABN*(08/21/2011 04:28:00) [facility] HospitalGbbjktsIUTPQHMSBB5827-83-34 10:28:00 Test Item Value Reference Range Interpretation Comments Polychrom (test code = Slight (08/21/2011 N Polychrom) 04:28:00) [facility] HospitalKdrejhrEVZHTISZSJ4062-22-03 10:28:00 Test Item Value Reference Range Interpretation Comments Basophils # (test code 0.0 See_Comment N [Aut omated message] The = Basophils #) system which generated this result tra nsmitted reference range : <=0.2. The reference r leo was not used to int erpret this result as normal/abnormal . [facility] HospitalViqxckhIHBBMARMVM9843-64-24 10:28:00 Test Item Value Reference Range Interpretation Comments Hypochrom (test code = Slight (08/21/2011 N Hypochrom) 04:28:00) [facility] HospitalStwffphWAKSXGIYNP5349-83-07 10:28:00 Test Item Value Reference Range Interpretation Comments Monocytes # (test code 0.6 See_Comment N [Aut omated message] The = Monocytes #) system which generated this result tra nsmitted reference range : <=0.8. The reference r leo was not used to int erpret this result as normal/abnormal . [facility] HospitalOphzqpaZLELWMQTBH2163-57-03 10:28:00 Test Item Value Reference Range Interpretation Comments Eosinophils # (test code 0.0 See_Comment N [A utomated message] The = Eosinophils #) system whic h generated this result tra nsmitted reference range : <=0.5. The reference r leo was not used to int erpret this result as normal/abnormal . [facility] HospitalIblyfowZWZKWMCKTZ4307-30-19 10:28:00 Test Item Value Reference Range Interpretation Comments Segs-Bands # (test code = Segs-Bands #) 5.3 1.5-8.1 N [facility] HospitalXzeamrjFWAPLXQBND2110-43-53 10:28:00 Test Item Value Reference Range Interpretation Comments Lymphocytes # (test code = Lymphocytes 1.3 1.0-5.5 N #) [facility] HospitalGsaqeuaOPXMDLXDNC6108-94-26 10:28:00 Test Item Value Reference Range Interpretation Comments Basophils (test code = 0.5 See_Comment N [Aut omated message] The Basophils) system which ge nerated this result tra nsmitted reference range : <=1.0. The reference r leo was not used to int erpret this result as normal/abnormal . [facility] HospitalBuoudnjNIDNWMOGXK7918-97-19 10:28:00 Test Item Value Reference Range Interpretation Comments Monocytes (test code = Monocytes) 8.5 2.0-12.0 N [facility] HospitalRgowdqaVNJCNIRMRH0026-68-54 10:28:00 Test Item Value Reference Range Interpretation Comments Eosinophils (test code = 0.3 See_Comment N [A utomated message] The Eosinophils) system which ge nerated this result tra nsmitted reference range : <=4.0. The reference r leo was not used to int erpret this result as normal/abnormal . [facility] HospitalKjozvkyRXUAHXQHYA1716-34-22 10:28:00 Test Item Value Reference Range Interpretation Comments Lymphocytes (test code = Lymphocytes) 17.3 20.0-40.0 L [facility] HospitalArvqsicPHXNGVRHMV3808-54-18 10:28:00 Test Item Value Reference Range Interpretation Comments Segs (test code = Segs) 73.4 45.0-75.0 N [facility] [place]LxoziohDICZLTYVG5378-49-27 10:28:00 Test Item Value Reference Range Interpretation Comments Phosphorus (test code = Phosphorus) 2.6 2.5-4.5 N [facility] [place]EundycqNXPLIBLYM3715-24-78 10:28:00 Test Item Value Reference Range Interpretation Comments Magnesium Lvl (test code = Magnesium 1.8 1.8-2.4 N Lvl) [facility] [place]SemqwbiTSBUFUQOD5918-22-53 10:28:00 Test Item Value Reference Range Interpretation Comments Potassium Lvl (test code = Potassium 3.7 3.5-5.1 N Lvl) [facility] [place]GutqxgwODKIMWVND8249-71-32 10:28:00 Test Item Value Reference Range Interpretation Comments Sodium Lvl (test code = Sodium Lvl) 137 135-145 N [facility] [place]PfhtwszSWKRNRNQD3208-96-44 10:28:00 Test Item Value Reference Range Interpretation Comments Creatinine Lvl (test code = Creatinine 0.6 0.5-1.4 N Lvl) [facility] [place]EmpjjnsANRIAYNMK2065-94-39 10:28:00 Test Item Value Reference Range Interpretation Comments BUN (test code = BUN) 16 7-22 N [facility] [place]YdwbhsnOCQKFWYOK0557-50-70 10:28:00 Test Item Value Reference Range Interpretation Comments Glucose Lvl (test code = Glucose Lvl) 200 [facility] [place]ervilleDyaknvvBAKUHTIGK0143-10-53 10:28:00 Test Item Value Reference Range Interpretation Comments Calcium Lvl (test code = Calcium Lvl) 8.3 8.5-10.5 L [facility] [place]ervilleCowukueSBTQOZQVV5268-93-50 10:28:00 Test Item Value Reference Range Interpretation Comments AGAP (test code = AGAP) 19.7 10.0-20.0 N [facility] [place]OxxrgekNYRKGZBFT9031-08-31 10:28:00 Test Item Value Reference Range Interpretation Comments Chloride Lvl (test code = Chloride Lvl) 99 95-109 N [facility] [place]QqorfgcSOAUVDTMW0022-61-13 10:28:00 Test Item Value Reference Range Interpretation Comments CO2 (test code = CO2) 22 24-32 L [facility] HospitalJtrfshpDHNCRPCMRT2802-38-01 10:28:00 Test Item Value Reference Range Interpretation Comments Platelet (test code = Platelet) 172 133-450 N [facility] HospitalEbtbrksESKAHFRTHT0558-28-59 10:28:00 Test Item Value Reference Range Interpretation Comments MPV (test code = MPV) 12.0 7.4-10.4 H [facility] HospitalZvfkgzwOHAEKRICUJ9324-29-05 10:28:00 Test Item Value Reference Range Interpretation Comments WBC (test code = WBC) 7.3 3.7-10.4 N [facility] HospitalTvciqvaIRTMORWAGG8078-87-77 10:28:00 Test Item Value Reference Range Interpretation Comments RDW (test code = RDW) 14.6 11.5-14.5 H [facility] HospitalIhnrztmVXBEEWFKYM9899-21-13 10:28:00 Test Item Value Reference Range Interpretation Comments MCHC (test code = MCHC) 35.0 32.0-36.0 N [facility] HospitalLxcuaydAQUONWEVEV5608-45-96 10:28:00 Test Item Value Reference Range Interpretation Comments RBC (test code = RBC) 4.54 4.20-5.40 N [facility] HospitalDvknqdsYCHOXEFWLM6062-90-56 10:28:00 Test Item Value Reference Range Interpretation Comments Hct (test code = Hct) 37.6 36.0-48.0 N [facility] HospitalVbhxkrcOZZIYMLZZN7216-30-87 10:28:00 Test Item Value Reference Range Interpretation Comments MCV (test code = MCV) 82.9 81.0-99.0 N [facility] HospitalTghzvqwNFIOMVAOZE4137-72-05 10:28:00 Test Item Value Reference Range Interpretation Comments MCH (test code = MCH) 29.0 pg 27.0-31.0 N [facility] HospitalUxqfserFBBAEVCNCP9159-88-78 10:28:00 Test Item Value Reference Range Interpretation Comments Hgb (test code = Hgb) 13.2 12.0-16.0 N [facility] HospitalMaqkfkyVWXGHGPJBZ3559-69-58 10:28:00 Test Item Value Reference Range Interpretation Comments Elliptocyte (test code = Slight A Elliptocyte) *ABN*(08/21/2011 04:28:00) [facility] HospitalWsmniiyWPJQMHARHI5429-49-46 10:28:00 Test Item Value Reference Range Interpretation Comments Polychrom (test code = Slight (08/21/2011 N Polychrom) 04:28:00) [facility] HospitalEaekwqmSHZWOOBAIM9000-50-21 10:28:00 Test Item Value Reference Range Interpretation Comments Basophils # (test code 0.0 See_Comment N [Aut omated message] The = Basophils #) system which generated this result tra nsmitted reference range : <=0.2. The reference r leo was not used to int erpret this result as normal/abnormal . [facility] HospitalPfstzbxALPAWRWKAN6134-92-10 10:28:00 Test Item Value Reference Range Interpretation Comments Hypochrom (test code = Slight (08/21/2011 N Hypochrom) 04:28:00) [facility] HospitalOjnrfxtOGAYXFMYIK3332-92-95 10:28:00 Test Item Value Reference Range Interpretation Comments Monocytes # (test code 0.6 See_Comment N [Aut omated message] The = Monocytes #) system which generated this result tra nsmitted reference range : <=0.8. The reference r leo was not used to int erpret this result as normal/abnormal . [facility] HospitalYpzobhyHUTGDJLUBQ1913-04-10 10:28:00 Test Item Value Reference Range Interpretation Comments Eosinophils # (test code 0.0 See_Comment N [A utomated message] The = Eosinophils #) system [facility] h generated this result tra nsmitted reference range : <=0.5. The reference r leo was not used to int erpret this result as normal/abnormal . [facility] HospitalDxyyuesQBZPQNUREC5904-25-44 10:28:00 Test Item Value Reference Range Interpretation Comments Segs-Bands # (test code = Segs-Bands #) 5.3 1.5-8.1 N [facility] HospitalZfiwipdBEPBRJZTUT6226-84-16 10:28:00 Test Item Value Reference Range Interpretation Comments Lymphocytes # (test code = Lymphocytes 1.3 1.0-5.5 N #) [facility] HospitalGxjqkgqKYGVTPYMYO0810-27-91 10:28:00 Test Item Value Reference Range Interpretation Comments Basophils (test code = 0.5 See_Comment N [Aut omated message] The Basophils) system which ge nerated this result tra nsmitted reference range : <=1.0. The reference r leo was not used to int erpret this result as normal/abnormal . [facility] HospitalNeojoctXQMYSBBFZL4611-95-92 10:28:00 Test Item Value Reference Range Interpretation Comments Monocytes (test code = Monocytes) 8.5 2.0-12.0 N [facility]bfepefSHYIXCJIDF9993-86-63 10:28:00 Test Item Value Reference Range Interpretation Comments Eosinophils (test code = 0.3 See_Comment N [A utomated message] The Eosinophils) system which ge nerated this result tra nsmitted reference range : <=4.0. The reference r leo was not used to int erpret this result as normal/abnormal . [facility] HospitalUmovxheLEKFXJATDU1852-36-33 10:28:00 Test Item Value Reference Range Interpretation Comments Lymphocytes (test code = Lymphocytes) 17.3 20.0-40.0 L [facility]EezuwcjBYKJEKWLFV9861-18-75 10:28:00 Test Item Value Reference Range Interpretation Comments Segs (test code = Segs) 73.4 45.0-75.0 N [facility] GLUCOSE ORJVNAC5841-49-24 07:47:00 Test Item Value Reference Range Interpretation Comments Comment2 (test code = Comment2) [facility] w[facility] VEQCDDI9122-65-28 07:47:00 Test Item Value Reference Range Interpretation Comments Comment2 (test code = Comment2) Verify w/Lab [facility]annB[facility] GLUCOSE EZHDGFR3098-07-49 07:47:00 Test Item Value Reference Range Interpretation Comments Comment2 (test code = Comment2) Verify w/Lab [facility]ann[facility]ED[facility] GLU[facility]SE MAUPPAV0642-52-55 07:47:00 Test Item Value Reference Range Interpretation Comments Comment2 (test code = Comment2) Verify w/Lab [facility]annB[facility] GLUCOSE DTUHFXO4515-63-39 07:47:00 Test Item Value Reference Range Interpretation Comments Comment2 (test code = Comment2) Verify w/Lab [facility] DallasZmppdyqNEXHUUDFG5064-72-98 21:58:00 Test Item Value Reference Range Interpretation Comments S Preg (test code = S Negative (08/19/2011 N Preg) 15:58:00) [facility] [place]ervilleLunomlrQVDWPUIFE7233-07-56 21:58:00 Test Item Value Reference Range Interpretation Comments Lipase Lvl (test code = Lipase Lvl) 169 73-393 N [facility] [place]ervilleYipuoggHOKYYGGBL6167-49-63 21:58:00 Test Item Value Reference Range Interpretation Comments ALT (test code = ALT) 54 See_Comment N [Auto mated message] The system which ge nerated this result transmit rohit reference range : <=65. The reference range was not used to interpr et this result as reji l/abnormal. [facility] [place]ervilleOhzyjosMVDBBMMJE2681-74-06 21:58:00 Test Item Value Reference Range Interpretation Comments Alk Phos (test code = Alk Phos) 110 39-136 N [facility] [place]ervilleAogssfeEWUKAQYYK3154-87-61 21:58:00 Test Item Value Reference Range Interpretation Comments Bili Direct (test code 0.1 See_Comment N [Aut omated message] The = Bili Direct) system which generated this result tra nsmitted reference range : <=0.3. The reference r leo was not used to int erpret this result as reji l/abnormal. [facility] [place]ervilleVmkelreTXPUGLJOA5234-42-76 21:58:00 Test Item Value Reference Range Interpretation Comments Bili Total (test code = Bili Total) 0.9 0.2-1.3 N [facility] [place]ervilleJwqrdlwTZQOJBYSR3886-48-06 21:58:00 Test Item Value Reference Range Interpretation Comments Albumin Lvl (test code = Albumin Lvl) 4.4 3.5-5.0 N [facility] [place]ervilleWhujqvbGVREQPUPF2708-42-75 21:58:00 Test Item Value Reference Range Interpretation Comments Total Protein (test code = Total 8.8 6.4-8.4 H Protein) [facility] [place]ervilleHrkzdwtFHYIBDZHG9701-44-86 21:58:00 Test Item Value Reference Range Interpretation Comments Bili Indirect (test 0.8 See_Comment N [Automa rohit message] The code = Bili Indirect) system which generated this result tra nsmitted reference range : <=1.0. The reference r leo was not used to int erpret this result as normal/abnormal . [facility] [place]ervilleOnecazoAJNKISJGW8059-43-98 21:58:00 Test Item Value Reference Range Interpretation Comments AST (test code = AST) 36 See_Comment N [Auto mated message] The system which ge nerated this result transmit rohit reference range : <=37. The reference range was not used to interpr et this result as reji l/abnormal. [facility] ResourcesOmapcjeHTQNBRMCV5524-57-61 21:58:00 Test Item Value Reference Range Interpretation Comments Globulin (test code = Globulin) 4.4 2.0-4.0 H [facility] [place]ervilleGszsgboWWEDJALFK8280-22-90 21:58:00 Test Item Value Reference Range Interpretation Comments A/G Ratio (test code = A/G Ratio) 1.0 0.7-1.6 N [facility] CenterIercgnuOCCMPLANQD0665-30-55 21:58:00 Test Item Value Reference Range Interpretation Comments UA Bacteria (test code Occasional /HPF N = UA Bacteria) (08/19/2011 15:58:00) [facility]NqjrxsgCVKJQNMTBI1959-69-55 21:58:00 Test Item Value Reference Range Interpretation Comments UA RBC (test 3-5 /HPF See_Comment A [Automated mes pastor] code = UA RBC) *ABN*(08/19/2011 The syste m which 15:58:00) generated this result transmitted ref erence range: <=2. The reference range was not used to int erpret this result as normal/abnormal . [facility] CenterPkuiuzfMIUJXNATCK8080-54-98 21:58:00 Test Item Value Reference Range Interpretation Comments UA WBC (test code = 3 See_Comment [Automa rohit message] The UA WBC) system which ge nerated this result transmit rohit reference range : <=5. The reference range was not used to interpr et this result as reji l/abnormal. [facility] ResourcesMeuarhcAEEZOHEOLU4034-01-54 21:58:00 Test Item Value Reference Range Interpretation Comments UA Mucus (test code = Few /LPF (08/19/2011 N UA Mucus) 15:58:00) [facility] CenterEfkzrnaHVHUXFUQKI1177-20-99 21:58:00 Test Item Value Reference Range Interpretation Comments UA Amorph Destiny (test Occasional /HPF A code = UA Amorph *ABN*(08/19/2011 Destiny) 15:58:00) [facility] CenterQnohelvPRJGOKJKSZ7011-56-43 21:58:00 Test Item Value Reference Range Interpretation Comments UA Urobilinogen (test code = UA 0.2 0.1-1.0 N Urobilinogen) [facility] CenterAcxvuarYTBXKXDVPB6648-15-75 21:58:00 Test Item Value Reference Range Interpretation Comments UA Sq Epi (test code = Rare /LPF (08/19/2011 N UA Sq Epi) 15:58:00) [facility] HospitalRexnbueARDCHJXHMW2595-67-28 21:58:00 Test Item Value Reference Range Interpretation Comments Micro? (test code = Performed (08/19/2011 N Micro?) 15:58:00) [facility] HospitalIcqtazxVXAKNIATDN4914-23-54 21:58:00 Test Item Value Reference Range Interpretation Comments UA Leuk Est (test Negative (08/19/2011 N code = UA Leuk Est) 15:58:00) [facility] CenterVdhecxoKASKWRYODW9543-10-31 21:58:00 Test Item Value Reference Range Interpretation Comments UA Nitrite (test code Negative (08/19/2011 N = UA Nitrite) 15:58:00) [facility] HospitalStjoxhyATRVVPJMLB9074-87-26 21:58:00 Test Item Value Reference Range Interpretation Comments UA pH (test code = UA pH) 5.5 1 5.0-8.0 N [facility] CenterCfrwxzsJLJUAHBRWM4292-57-53 21:58:00 Test Item Value Reference Range Interpretation Comments UA Blood (test code = Trace *ABN*(08/19/2011 A UA Blood) 15:58:00) [facility] HospitalXnirptrUFSBOBLAYJ5632-51-53 21:58:00 Test Item Value Reference Range Interpretation Comments UA Bili (test code = Negative (08/19/2011 N UA Bili) 15:58:00) [facility] CenterZwkjmluIASUFAORZD7054-29-90 21:58:00 Test Item Value Reference Range Interpretation Comments UA Ketones (test code = 80 mg/dL A UA Ketones) *ABN*(08/19/2011 15:58:00) [facility] CenterAasalkrECMYAGUBWI7564-76-73 21:58:00 Test Item Value Reference Range Interpretation Comments UA Glucose (test code = >=1000 mg/dL A UA Glucose) *ABN*(08/19/2011 15:58:00) [facility] CenterJiidrcqMQALMXETKX0117-11-06 21:58:00 Test Item Value Reference Range Interpretation Comments UA Protein (test code Negative (08/19/2011 N = UA Protein) 15:58:00) [facility] HospitalPwxnzixMWQFZMHTAW5691-90-45 21:58:00 Test Item Value Reference Range Interpretation Comments UA Turbidity (test code Slight Cloudy N = UA Turbidity) (08/19/2011 15:58:00) [facility] HospitalIrazftnEVYEAFEYNS2451-19-61 21:58:00 Test Item Value Reference Range Interpretation Comments UA Spec Grav (test code = UA Spec 1.025 1 Grav) [facility] HospitalHyoyxoqGKBWGFUORI4057-91-14 21:58:00 Test Item Value Reference Range Interpretation Comments UA Color (test code = Yellow (08/19/2011 N UA Color) 15:58:00) [facility] [place]ervilleZbkglukTSVWQOIFT2537-67-32 21:58:00 Test Item Value Reference Range Interpretation Comments S Preg (test code = S Negative (08/19/2011 N Preg) 15:58:00) [facility] [place]ervilleTdhosysEQDBLTAYF3112-28-61 21:58:00 Test Item Value Reference Range Interpretation Comments Lipase Lvl (test code = Lipase Lvl) 169 73-393 N [facility] [place]ervilleZkoxvzwPKKUMGEJF3818-75-00 21:58:00 Test Item Value Reference Range Interpretation Comments ALT (test code = ALT) 54 See_Comment N [Auto mated message] The system which ge nerated this result transmit rohit reference range : <=65. The reference range was not used to interpr et this result as reji l/abnormal. [facility] [place]ervilleVrumxcvQZSBKMGBI7816-68-12 21:58:00 Test Item Value Reference Range Interpretation Comments Alk Phos (test code = Alk Phos) 110 39-136 N [facility] [place]ervilleNcgnnrbXUHMMNLJH6809-39-89 21:58:00 Test Item Value Reference Range Interpretation Comments Bili Direct (test code 0.1 See_Comment N [Aut omated message] The = Bili Direct) system which generated this result tra nsmitted reference range : <=0.3. The reference r leo was not used to int erpret this result as reji l/abnormal. [facility] [place]ervilleHtwsuidPYOEMGUYN5188-40-32 21:58:00 Test Item Value Reference Range Interpretation Comments Bili Total (test code = Bili Total) 0.9 0.2-1.3 N [facility] [place]ervilleNbdrjhkFZVIWQHXR3972-04-91 21:58:00 Test Item Value Reference Range Interpretation Comments Albumin Lvl (test code = Albumin Lvl) 4.4 3.5-5.0 N [facility] [place]ervilleNrjhligVBTANIBFK8632-80-21 21:58:00 Test Item Value Reference Range Interpretation Comments Total Protein (test code = Total 8.8 6.4-8.4 H Protein) [facility] [place]ervilleNogehxeVXDPBQQNR5102-69-60 21:58:00 Test Item Value Reference Range Interpretation Comments Bili Indirect (test 0.8 See_Comment N [Automa rohit message] The code = Bili Indirect) system which generated this result tra nsmitted reference range : <=1.0. The reference r leo was not used to int erpret this result as normal/abnormal . [facility] [place]XvkuulnXRVAEMYNO8232-01-06 21:58:00 Test Item Value Reference Range Interpretation Comments AST (test code = AST) 36 See_Comment N [Auto mated message] The system which ge nerated this result transmit rohit reference range : <=37. The reference range was not used to interpr et this result as reji l/abnormal. [facility] [place]ervilleTdhauzgTBHVSXWFB1760-67-10 21:58:00 Test Item Value Reference Range Interpretation Comments Globulin (test code = Globulin) 4.4 2.0-4.0 H [facility] [place]ervilleXijzlsdBDMDQNZIS4958-22-34 21:58:00 Test Item Value Reference Range Interpretation Comments A/G Ratio (test code = A/G Ratio) 1.0 0.7-1.6 N [facility] HospitalBzauxujNFSQDPEHHH6480-57-71 21:58:00 Test Item Value Reference Range Interpretation Comments UA Bacteria (test code Occasional /HPF N = UA Bacteria) (08/19/2011 15:58:00) [facility] CenterKfinvtvJOBHNRUOLD3075-39-89 21:58:00 Test Item Value Reference Range Interpretation Comments UA RBC (test 3-5 /HPF See_Comment A [Automated mes pastor] code = UA RBC) *ABN*(08/19/2011 The syste m which 15:58:00) generated this result transmitted ref erence range: <=2. The reference range was not used to int erpret this result as normal/abnormal . [facility] Health ResourcesWjxvpkhLQOTEBGNIK9867-99-46 21:58:00 Test Item Value Reference Range Interpretation Comments UA WBC (test code = 3 See_Comment [Automa rohit message] The UA WBC) system which ge nerated this result transmit rohit reference range : <=5. The reference range was not used to interpr et this result as reji l/abnormal. [facility] CenterFuwdbflLJKQSWIMOA1864-08-53 21:58:00 Test Item Value Reference Range Interpretation Comments UA Mucus (test code = Few /LPF (08/19/2011 N UA Mucus) 15:58:00) [facility] CenterRfjyunuQNNANSFRQJ9715-35-33 21:58:00 Test Item Value Reference Range Interpretation Comments UA Amorph Destiny (test Occasional /HPF A code = UA Amorph *ABN*(08/19/2011 Destiny) 15:58:00) [facility] CenterOhmiaenBDBBMHVPXE6196-06-31 21:58:00 Test Item Value Reference Range Interpretation Comments UA Urobilinogen (test code = UA 0.2 0.1-1.0 N Urobilinogen) [facility]YiggnfnMBMGEPUNFD6277-39-99 21:58:00 Test Item Value Reference Range Interpretation Comments UA Sq Epi (test code = Rare /LPF (08/19/2011 N UA Sq Epi) 15:58:00) [facility] CenterUcofzccZPNGWIYIBX0779-99-66 21:58:00 Test Item Value Reference Range Interpretation Comments Micro? (test code = Performed (08/19/2011 N Micro?) 15:58:00) [facility] CenterLfahpkoVVLVOSEVXZ3670-53-74 21:58:00 Test Item Value Reference Range Interpretation Comments UA Leuk Est (test Negative (08/19/2011 N code = UA Leuk Est) 15:58:00) [facility] CenterJfcineeIYHUNZECPB1945-65-97 21:58:00 Test Item Value Reference Range Interpretation Comments UA Nitrite (test code Negative (08/19/2011 N = UA Nitrite) 15:58:00) [facility] CenterEpmzusiSAXLBHCBWZ4953-29-54 21:58:00 Test Item Value Reference Range Interpretation Comments UA pH (test code = UA pH) 5.5 1 5.0-8.0 N [facility] CenterNsdnnwbYPPVHNDZVJ3494-28-35 21:58:00 Test Item Value Reference Range Interpretation Comments UA Blood (test code = Trace *ABN*(08/19/2011 A UA Blood) 15:58:00) [facility] CenterVtfejlrOVSIWXPCTO6829-54-45 21:58:00 Test Item Value Reference Range Interpretation Comments UA Bili (test code = Negative (08/19/2011 N UA Bili) 15:58:00) [facility] ResourcesIhwvqilANNLPWXCAL4347-09-89 21:58:00 Test Item Value Reference Range Interpretation Comments UA Ketones (test code = 80 mg/dL A UA Ketones) *ABN*(08/19/2011 15:58:00) [facility] HospitalPeizaheZFOOIGNKTG7743-16-57 21:58:00 Test Item Value Reference Range Interpretation Comments UA Glucose (test code = >=1000 mg/dL A UA Glucose) *ABN*(08/19/2011 15:58:00) [facility] HospitalWrwduxuXDXFGINVTD8226-99-52 21:58:00 Test Item Value Reference Range Interpretation Comments UA Protein (test code Negative (08/19/2011 N = UA Protein) 15:58:00) [facility] HospitalOldsgxlADLQNMFVBC8619-00-58 21:58:00 Test Item Value Reference Range Interpretation Comments UA Turbidity (test code Slight Cloudy N = UA Turbidity) (08/19/2011 15:58:00) [facility] HospitalVpcsbxlJJNWJRSMGD5748-14-52 21:58:00 Test Item Value Reference Range Interpretation Comments UA Spec Grav (test code = UA Spec 1.025 1 Grav) [facility] HospitalXvwzsvlKOCCUFCHYS9473-95-86 21:58:00 Test Item Value Reference Range Interpretation Comments UA Color (test code = Yellow (08/19/2011 N UA Color) 15:58:00) [facility]EfvrkdsLTJRCTKXJ7492-57-89 21:58:00 Test Item Value Reference Range Interpretation Comments S Preg (test code = S Negative (08/19/2011 N Preg) 15:58:00) [facility]PkdnjcnANVOZLUTF9004-04-04 21:58:00 Test Item Value Reference Range Interpretation Comments Lipase Lvl (test code = Lipase Lvl) 169 73-393 N [facility] [place]ervilleDjjdkdzYUJNLEWPP9564-77-51 21:58:00 Test Item Value Reference Range Interpretation Comments ALT (test code = ALT) 54 See_Comment N [Auto mated message] The system which ge nerated this result transmit rohit reference range : <=65. The reference range was not used to interpr et this result as reji l/abnormal. [facility]ervilleSgnfwqeOUUTGDFAU1517-13-66 21:58:00 Test Item Value Reference Range Interpretation Comments Alk Phos (test code = Alk Phos) 110 39-136 N [facility] DallasMfvvbabHTBOFHCWM3968-62-90 21:58:00 Test Item Value Reference Range Interpretation Comments Bili Direct (test code 0.1 See_Comment N [Aut omated message] The = Bili Direct) system which generated this result tra nsmitted reference range : <=0.3. The reference r leo was not used to int erpret this result as reji l/abnormal. [facility] DallasKurbdrmYDKGYHGNZ9205-95-78 21:58:00 Test Item Value Reference Range Interpretation Comments Bili Total (test code = Bili Total) 0.9 0.2-1.3 N [facility] DallasKifxcxfLPEZVIUQT9446-73-65 21:58:00 Test Item Value Reference Range Interpretation Comments Albumin Lvl (test code = Albumin Lvl) 4.4 3.5-5.0 N [facility] DallasLfckakcXZOHOUALG9270-25-41 21:58:00 Test Item Value Reference Range Interpretation Comments Total Protein (test code = Total 8.8 6.4-8.4 H Protein) [facility] [place]ervilleQwonoujTHDMISAVY2015-48-05 21:58:00 Test Item Value Reference Range Interpretation Comments Bili Indirect (test 0.8 See_Comment N [Automa rohit message] The code = Bili Indirect) system which generated this result tra nsmitted reference range : <=1.0. The reference r leo was not used to int erpret this result as normal/abnormal . [facility] DallasTamqrndXYOFJPUIP3527-36-65 21:58:00 Test Item Value Reference Range Interpretation Comments AST (test code = AST) 36 See_Comment N [Auto mated message] The system which ge nerated this result transmit rohit reference range : <=37. The reference range was not used to interpr et this result as reji l/abnormal. [facility] DallasIjlsthqLEVVBJPZI6308-53-63 21:58:00 Test Item Value Reference Range Interpretation Comments Globulin (test code = Globulin) 4.4 2.0-4.0 H [facility] DallasCkbjohrIWZIFOWQX9892-07-06 21:58:00 Test Item Value Reference Range Interpretation Comments A/G Ratio (test code = A/G Ratio) 1.0 0.7-1.6 N [facility] DallasHqswjoeWMVWIJRQNI1425-56-56 21:58:00 Test Item Value Reference Range Interpretation Comments UA Bacteria (test code Occasional /HPF N = UA Bacteria) (08/19/2011 15:58:00) [facility] CenterUkminanLLNKHTIYTK8634-99-07 21:58:00 Test Item Value Reference Range Interpretation Comments UA RBC (test 3-5 /HPF See_Comment A [Automated mes pastor] code = UA RBC) *ABN*(08/19/2011 The syste m which 15:58:00) generated this result transmitted ref erence range: <=2. The reference range was not used to int erpret this result as normal/abnormal . [facility] CenterYfcqqecLDRYXZVBBU0753-34-60 21:58:00 Test Item Value Reference Range Interpretation Comments UA WBC (test code = 3 See_Comment [Automa rohit message] The UA WBC) system which ge nerated this result transmit rohit reference range : <=5. The reference range was not used to interpr et this result as reji l/abnormal. [facility] CenterDgvvqyxSGOVFIDJLH8516-09-79 21:58:00 Test Item Value Reference Range Interpretation Comments UA Mucus (test code = Few /LPF (08/19/2011 N UA Mucus) 15:58:00) [facility] ResourcesJtusmsbMXHNATINRK3049-89-59 21:58:00 Test Item Value Reference Range Interpretation Comments UA Amorph Destiny (test Occasional /HPF A code = UA Amorph *ABN*(08/19/2011 Destiny) 15:58:00) [facility] CenterOaixwvuOVTFFQUOPM1864-13-92 21:58:00 Test Item Value Reference Range Interpretation Comments UA Urobilinogen (test code = UA 0.2 0.1-1.0 N Urobilinogen) [facility] CenterFvlspwkFIHQCPCZZT0486-42-66 21:58:00 Test Item Value Reference Range Interpretation Comments UA Sq Epi (test code = Rare /LPF (08/19/2011 N UA Sq Epi) 15:58:00) [facility] CenterBhqkrqdZXZRYLXOFY6758-81-42 21:58:00 Test Item Value Reference Range Interpretation Comments Micro? (test code = Performed (08/19/2011 N Micro?) 15:58:00) [facility] CenterRisneqlTLKTWBVNMH4676-23-95 21:58:00 Test Item Value Reference Range Interpretation Comments UA Leuk Est (test Negative (08/19/2011 N code = UA Leuk Est) 15:58:00) [facility] ResourcesUopqkxpKOPLKHJRDC3560-27-13 21:58:00 Test Item Value Reference Range Interpretation Comments UA Nitrite (test code Negative (08/19/2011 N = UA Nitrite) 15:58:00) [facility] CenterUkeeqwmXKKEVDKPHP1065-01-43 21:58:00 Test Item Value Reference Range Interpretation Comments UA pH (test code = UA pH) 5.5 1 5.0-8.0 N [facility] CenterFihuguqJLXJGCARNC3249-39-54 21:58:00 Test Item Value Reference Range Interpretation Comments UA Blood (test code = Trace *ABN*(08/19/2011 A UA Blood) 15:58:00) [facility] CenterPjyerbgNZHFOAZSIF6600-66-15 21:58:00 Test Item Value Reference Range Interpretation Comments UA Bili (test code = Negative (08/19/2011 N UA Bili) 15:58:00) [facility] CenterRjslufhWLCAQYCRKU2478-11-78 21:58:00 Test Item Value Reference Range Interpretation Comments UA Ketones (test code = 80 mg/dL A UA Ketones) *ABN*(08/19/2011 15:58:00) [facility] CenterLzazsbqGKLOMCYZWY6377-45-22 21:58:00 Test Item Value Reference Range Interpretation Comments UA Glucose (test code = >=1000 mg/dL A UA Glucose) *ABN*(08/19/2011 15:58:00) [facility] CenterDdbplugCIDGGPHOAH0521-25-65 21:58:00 Test Item Value Reference Range Interpretation Comments UA Protein (test code Negative (08/19/2011 N = UA Protein) 15:58:00) [facility] CenterAmuuzomYQXLJJCKFE4039-13-32 21:58:00 Test Item Value Reference Range Interpretation Comments UA Turbidity (test code Slight Cloudy N = UA Turbidity) (08/19/2011 15:58:00) [facility] CenterBglavcnYSJJIEMTUA4940-20-90 21:58:00 Test Item Value Reference Range Interpretation Comments UA Spec Grav (test code = UA Spec 1.025 1 Grav) [facility] CenterTsovqblFTNQCLPMMY8889-75-37 21:58:00 Test Item Value Reference Range Interpretation Comments UA Color (test code = Yellow (08/19/2011 N UA Color) 15:58:00) [facility]DjnwetfUXXILGQFI5525-19-29 21:58:00 Test Item Value Reference Range Interpretation Comments S Preg (test code = S Negative (08/19/2011 N Preg) 15:58:00) [facility]EohqevnCUKSOZNPU3501-41-96 21:58:00 Test Item Value Reference Range Interpretation Comments Lipase Lvl (test code = Lipase Lvl) 169 73-393 N [facility] [place]ervilleZxwmeykVZXMQBAUZ2889-57-86 21:58:00 Test Item Value Reference Range Interpretation Comments ALT (test code = ALT) 54 See_Comment N [Auto mated message] The system which ge nerated this result transmit rohit reference range : <=65. The reference range was not used to interpr et this result as reji l/abnormal. [facility]PqhokidZQPYNTVMS0239-33-98 21:58:00 Test Item Value Reference Range Interpretation Comments Alk Phos (test code = Alk Phos) 110 39-136 N [facility] [place]ervilleWogstehLFWUOINUM3609-24-55 21:58:00 Test Item Value Reference Range Interpretation Comments Bili Direct (test code 0.1 See_Comment N [Aut omated message] The = Bili Direct) system which generated this result tra nsmitted reference range : <=0.3. The reference r leo was not used to int erpret this result as reji l/abnormal. [facility]ervilleXvhdinuXQNBOEQGL4636-11-66 21:58:00 Test Item Value Reference Range Interpretation Comments Bili Total (test code = Bili Total) 0.9 0.2-1.3 N [facility] [place]ervilleLdtbiauEHZLRVBZY6311-62-12 21:58:00 Test Item Value Reference Range Interpretation Comments Albumin Lvl (test code = Albumin Lvl) 4.4 3.5-5.0 N [facility] [place]ervilleSvipsqfDLDUDRBKA4652-53-69 21:58:00 Test Item Value Reference Range Interpretation Comments Total Protein (test code = Total 8.8 6.4-8.4 H Protein) [facility] [place]XewnhqnTBPLTBBVK2722-83-22 21:58:00 Test Item Value Reference Range Interpretation Comments Bili Indirect (test 0.8 See_Comment N [Automa rohit message] The code = Bili Indirect) system which generated this result tra nsmitted reference range : <=1.0. The reference r leo was not used to int erpret this result as normal/abnormal . [facility] ResourcesBhtsfmqJEUBJEIRU8891-03-49 21:58:00 Test Item Value Reference Range Interpretation Comments AST (test code = AST) 36 See_Comment N [Auto mated message] The system which ge nerated this result transmit rohit reference range : <=37. The reference range was not used to interpr et this result as reji l/abnormal. [facility] ResourcesMicdrdbLLVBFVMTO9557-40-48 21:58:00 Test Item Value Reference Range Interpretation Comments Globulin (test code = Globulin) 4.4 2.0-4.0 H [facility] ResourcesKgjwezuFKPBHWYFS4085-52-68 21:58:00 Test Item Value Reference Range Interpretation Comments A/G Ratio (test code = A/G Ratio) 1.0 0.7-1.6 N [facility] CenterXlomlgeECBARPJLIH6332-43-50 21:58:00 Test Item Value Reference Range Interpretation Comments UA Bacteria (test code Occasional /HPF N = UA Bacteria) (08/19/2011 15:58:00) [facility] CenterMzwdcsxEPVDNYHBRP6548-99-23 21:58:00 Test Item Value Reference Range Interpretation Comments UA RBC (test 3-5 /HPF See_Comment A [Automated mes pastor] code = UA RBC) *ABN*(08/19/2011 The syste m which 15:58:00) generated this result transmitted ref erence range: <=2. The reference range was not used to int erpret this result as normal/abnormal . [facility] ResourcesMvzanrjAIXIHCUMXV6450-72-85 21:58:00 Test Item Value Reference Range Interpretation Comments UA WBC (test code = 3 See_Comment [Automa rohit message] The UA WBC) system which ge nerated this result transmit rohit reference range : <=5. The reference range was not used to interpr et this result as reji l/abnormal. [facility] DallasNpgnokyBXDZKDAQDB3562-50-48 21:58:00 Test Item Value Reference Range Interpretation Comments UA Mucus (test code = Few /LPF (08/19/2011 N UA Mucus) 15:58:00) [facility] CenterJxbbauoJFTRNUKIHV1762-72-33 21:58:00 Test Item Value Reference Range Interpretation Comments UA Amorph Destiny (test Occasional /HPF A code = UA Amorph *ABN*(08/19/2011 Destiny) 15:58:00) [facility] CenterTotcqaaZZLQMXEFOY0741-49-47 21:58:00 Test Item Value Reference Range Interpretation Comments UA Urobilinogen (test code = UA 0.2 0.1-1.0 N Urobilinogen) [facility] CenterDcjbldnUDEZBIJTIX9871-99-56 21:58:00 Test Item Value Reference Range Interpretation Comments UA Sq Epi (test code = Rare /LPF (08/19/2011 N UA Sq Epi) 15:58:00) [facility] CenterVxkctzaXQAARHTNML7156-81-06 21:58:00 Test Item Value Reference Range Interpretation Comments Micro? (test code = Performed (08/19/2011 N Micro?) 15:58:00) [facility] CenterEtswdgwKHJKZISEFI7656-80-83 21:58:00 Test Item Value Reference Range Interpretation Comments UA Leuk Est (test Negative (08/19/2011 N code = UA Leuk Est) 15:58:00) [facility]PwutrgkZHSVAWJNGV6771-89-40 21:58:00 Test Item Value Reference Range Interpretation Comments UA Nitrite (test code Negative (08/19/2011 N = UA Nitrite) 15:58:00) [facility] CenterMjhuubcXGAGYDRKFO6622-55-47 21:58:00 Test Item Value Reference Range Interpretation Comments UA pH (test code = UA pH) 5.5 1 5.0-8.0 N [facility] CenterWzigdryPFPSZAYOXK8604-64-21 21:58:00 Test Item Value Reference Range Interpretation Comments UA Blood (test code = Trace *ABN*(08/19/2011 A UA Blood) 15:58:00) [facility] CenterCntodjkMHIOKJOXGR1098-35-56 21:58:00 Test Item Value Reference Range Interpretation Comments UA Bili (test code = Negative (08/19/2011 N UA Bili) 15:58:00) [facility] CenterZjdynksCUAEEFQOXJ1975-64-20 21:58:00 Test Item Value Reference Range Interpretation Comments UA Ketones (test code = 80 mg/dL A UA Ketones) *ABN*(08/19/2011 15:58:00) [facility] CenterNmukimzYEWVEGWIPS2847-46-03 21:58:00 Test Item Value Reference Range Interpretation Comments UA Glucose (test code = >=1000 mg/dL A UA Glucose) *ABN*(08/19/2011 15:58:00) [facility] CenterDyhzkznMICVZXWZYJ4847-03-03 21:58:00 Test Item Value Reference Range Interpretation Comments UA Protein (test code Negative (08/19/2011 N = UA Protein) 15:58:00) [facility] HospitalTxcturlKMQRVMYMZH4317-28-44 21:58:00 Test Item Value Reference Range Interpretation Comments UA Turbidity (test code Slight Cloudy N = UA Turbidity) (08/19/2011 15:58:00) [facility] HospitalAxrebjnXYAGSRKDSG2670-03-38 21:58:00 Test Item Value Reference Range Interpretation Comments UA Spec Grav (test code = UA Spec 1.025 1 Grav) [facility] HospitalRsfytspWLIKEHBDPX0046-51-09 21:58:00 Test Item Value Reference Range Interpretation Comments UA Color (test code = Yellow (08/19/2011 N UA Color) 15:58:00) [facility]ervilleZzborwlMBMAXMNOI2840-56-13 21:58:00 Test Item Value Reference Range Interpretation Comments S Preg (test code = S Negative (08/19/2011 N Preg) 15:58:00) [facility] [place]QmmcfzrDRDAEMXHY9194-70-28 21:58:00 Test Item Value Reference Range Interpretation Comments Lipase Lvl (test code = Lipase Lvl) 169 73-393 N [facility] [place]ervilleSvxpagrAIIPLRAXH0175-81-97 21:58:00 Test Item Value Reference Range Interpretation Comments ALT (test code = ALT) 54 See_Comment N [Auto mated message] The system which ge nerated this result transmit rohit reference range : <=65. The reference range was not used to interpr et this result as reji l/abnormal. [facility]ervilleBsmvznzQKRQHRWMF7768-65-49 21:58:00 Test Item Value Reference Range Interpretation Comments Alk Phos (test code = Alk Phos) 110 39-136 N [facility] [place]ervilleJqylpfyHPIKMKXOY8817-95-20 21:58:00 Test Item Value Reference Range Interpretation Comments Bili Direct (test code 0.1 See_Comment N [Aut omated message] The = Bili Direct) system which generated this result tra nsmitted reference range : <=0.3. The reference r leo was not used to int erpret this result as reji l/abnormal. [facility]ervilleSvlkuygKEMLZWBCV9804-59-75 21:58:00 Test Item Value Reference Range Interpretation Comments Bili Total (test code = Bili Total) 0.9 0.2-1.3 N [facility] [place]ervilleHgpglrlUWHAMZESF0508-61-41 21:58:00 Test Item Value Reference Range Interpretation Comments Albumin Lvl (test code = Albumin Lvl) 4.4 3.5-5.0 N [facility] [place]OocawxkLRTNCYEAE0911-28-12 21:58:00 Test Item Value Reference Range Interpretation Comments Total Protein (test code = Total 8.8 6.4-8.4 H Protein) [facility] [place]ervilleSfeamrbHPGBVIHPT1497-31-34 21:58:00 Test Item Value Reference Range Interpretation Comments Bili Indirect (test 0.8 See_Comment N [Automa rohit message] The code = Bili Indirect) system which generated this result tra nsmitted reference range : <=1.0. The reference r leo was not used to int erpret this result as normal/abnormal . [facility] [place]ervilleSwxxnerVXGARFCBX8815-06-28 21:58:00 Test Item Value Reference Range Interpretation Comments AST (test code = AST) 36 See_Comment N [Auto mated message] The system which ge nerated this result transmit rohit reference range : <=37. The reference range was not used to interpr et this result as reji l/abnormal. [facility] [place]ervilleKbzdwznESNEULJIF5272-35-75 21:58:00 Test Item Value Reference Range Interpretation Comments Globulin (test code = Globulin) 4.4 2.0-4.0 H [facility] [place]ervilleJahirafOJRQAPDMJ7692-72-97 21:58:00 Test Item Value Reference Range Interpretation Comments A/G Ratio (test code = A/G Ratio) 1.0 0.7-1.6 N [facility] CenterSmuqgtbXLSTEXHNEE0022-83-02 21:58:00 Test Item Value Reference Range Interpretation Comments UA Bacteria (test code Occasional /HPF N = UA Bacteria) (08/19/2011 15:58:00) [facility] CenterMailmupETHZSQHDEI1199-89-34 21:58:00 Test Item Value Reference Range Interpretation Comments UA RBC (test 3-5 /HPF See_Comment A [Automated mes pastor] code = UA RBC) *ABN*(08/19/2011 The syste m which 15:58:00) generated this result transmitted ref erence range: <=2. The reference range was not used to int erpret this result as normal/abnormal . [facility] ResourcesQnebcrnSQEGNLTTVU4873-52-08 21:58:00 Test Item Value Reference Range Interpretation Comments UA WBC (test code = 3 See_Comment [Automa rohit message] The UA WBC) system which ge nerated this result transmit rohit reference range : <=5. The reference range was not used to interpr et this result as reji l/abnormal. [facility] HospitalOewmkdhAPBMYQDQVZ8692-43-08 21:58:00 Test Item Value Reference Range Interpretation Comments UA Mucus (test code = Few /LPF (08/19/2011 N UA Mucus) 15:58:00) [facility] CenterBzxhvcaJYYFUTNTGV2436-36-84 21:58:00 Test Item Value Reference Range Interpretation Comments UA Amorph Destiny (test Occasional /HPF A code = UA Amorph *ABN*(08/19/2011 Destiny) 15:58:00) [facility] HospitalFtrzfkqMLFIVSYPEQ7923-61-12 21:58:00 Test Item Value Reference Range Interpretation Comments UA Urobilinogen (test code = UA 0.2 0.1-1.0 N Urobilinogen) [facility] HospitalEhrtdksLWVEAYNBIU7900-20-26 21:58:00 Test Item Value Reference Range Interpretation Comments UA Sq Epi (test code = Rare /LPF (08/19/2011 N UA Sq Epi) 15:58:00) [facility] CenterZqlfjyzJTSPGGEPXZ2201-98-87 21:58:00 Test Item Value Reference Range Interpretation Comments Micro? (test code = Performed (08/19/2011 N Micro?) 15:58:00) [facility] CenterDjtvuxeWYRRKJHLJJ4744-15-73 21:58:00 Test Item Value Reference Range Interpretation Comments UA Leuk Est (test Negative (08/19/2011 N code = UA Leuk Est) 15:58:00) [facility] CenterJszvhoeJBMUTZBFWO3055-88-61 21:58:00 Test Item Value Reference Range Interpretation Comments UA Nitrite (test code Negative (08/19/2011 N = UA Nitrite) 15:58:00) [facility]oxuqehHPWHCGOCEH9404-67-84 21:58:00 Test Item Value Reference Range Interpretation Comments UA pH (test code = UA pH) 5.5 1 5.0-8.0 N [facility] CenterYiktezrZXLGMACHCZ2711-93-24 21:58:00 Test Item Value Reference Range Interpretation Comments UA Blood (test code = Trace *ABN*(08/19/2011 A UA Blood) 15:58:00) [facility] HospitalVqnxbkrYPROFTDRMU9854-57-97 21:58:00 Test Item Value Reference Range Interpretation Comments UA Bili (test code = Negative (08/19/2011 N UA Bili) 15:58:00) [facility] HospitalAofcdmrCFRIVENDZB6882-89-60 21:58:00 Test Item Value Reference Range Interpretation Comments UA Ketones (test code = 80 mg/dL A UA Ketones) *ABN*(08/19/2011 15:58:00) [facility] HospitalOdbhggkDKHXWSQEIF9542-13-50 21:58:00 Test Item Value Reference Range Interpretation Comments UA Glucose (test code = >=1000 mg/dL A UA Glucose) *ABN*(08/19/2011 15:58:00) [facility] HospitalUmhfaliUHXUPNZNGN3399-87-12 21:58:00 Test Item Value Reference Range Interpretation Comments UA Protein (test code Negative (08/19/2011 N = UA Protein) 15:58:00) [facility] HospitalDiehsspWOLGBOLCGP7790-84-45 21:58:00 Test Item Value Reference Range Interpretation Comments UA Turbidity (test code Slight Cloudy N = UA Turbidity) (08/19/2011 15:58:00) [facility] HospitalAwmmbaoLESAZHBNDC1348-35-47 21:58:00 Test Item Value Reference Range Interpretation Comments UA Spec Grav (test code = UA Spec 1.025 1 Grav) [facility] HospitalIcxfwavYOQYKANYCB0042-55-53 21:58:00 Test Item Value Reference Range Interpretation Comments UA Color (test code = Yellow (08/19/2011 N UA Color) 15:58:00) [facility]UisagdtGZFQWCMIU1793-80-75 21:13:00 Test Item Value Reference Range Interpretation Comments AST (test code = AST) 23 See_Comment N [Auto mated message] The system which ge nerated this result transmit rohit reference range : <=37. The reference range was not used to interpr et this result as reji l/abnormal. [facility]ervilleEuznfnkVQQQPLIAM3175-33-16 21:13:00 Test Item Value Reference Range Interpretation Comments Bili Total (test code = Bili Total) 1.0 0.2-1.3 N [facility] [place]ervilleDaadmgkGQMAHLJFN9759-37-63 21:13:00 Test Item Value Reference Range Interpretation Comments Alk Phos (test code = Alk Phos) 115 39-136 N [facility] [place]ervilleJhxprnlLZORVOIGJ5641-60-29 21:13:00 Test Item Value Reference Range Interpretation Comments ALT (test code = ALT) 56 See_Comment N [Auto mated message] The system which ge nerated this result transmit rohit reference range : <=65. The reference range was not used to interpr et this result as reji l/abnormal. [facility] [place]MgskdbwKXGRVJOTW7956-99-29 21:13:00 Test Item Value Reference Range Interpretation Comments Total Protein (test code = Total 9.0 6.4-8.4 H Protein) [facility] [place]ervilleFxbzrtpGQVGKLDAP9611-51-97 21:13:00 Test Item Value Reference Range Interpretation Comments Albumin Lvl (test code = Albumin Lvl) 4.8 3.5-5.0 N [facility] [place]ervilleXuohdetUBMTXASAN3405-80-93 21:13:00 Test Item Value Reference Range Interpretation Comments Globulin (test code = Globulin) 4.2 2.0-4.0 H [facility] [place]ervilleZpqodtgMKRRFQTBL9748-04-55 21:13:00 Test Item Value Reference Range Interpretation Comments A/G Ratio (test code = A/G Ratio) 1.1 0.7-1.6 N [facility] [place]ervilleItcctpyARNJPCJZG3531-04-02 21:13:00 Test Item Value Reference Range Interpretation Comments B/C Ratio (test code = B/C Ratio) 30 6-25 H [facility] HospitalEairvvoHJFYUDMTXZ2669-77-57 21:13:00 Test Item Value Reference Range Interpretation Comments RBC Morph (test code = Normal (08/19/2011 N RBC Morph) 15:13:00) [facility] HospitalPyystzxCTWUTJNUIQ7297-06-70 21:13:00 Test Item Value Reference Range Interpretation Comments Large Plt (test code = Slight *ABN*(08/19/2011 A Large Plt) 15:13:00) [facility] HospitalPlvxetgNQTIDYLISS1119-54-30 21:13:00 Test Item Value Reference Range Interpretation Comments Atypical Lymphs (test code = Atypical 0.0 N Lymphs) [facility] HospitalXcxwbmhSZMITSSYRT4332-69-13 21:13:00 Test Item Value Reference Range Interpretation Comments Bands (test code = 0.0 See_Comment N [Automat ed message] The Bands) system which ge nerated this result transmit rohit reference range : <=11.0. The reference r leo was not used to interpr et this result as reji l/abnormal. [facility]ervilleRlqtakuTVBJNTDQA5859-07-57 21:13:00 Test Item Value Reference Range Interpretation Comments AST (test code = AST) 23 See_Comment N [Auto mated message] The system which ge nerated this result transmit rohit reference range : <=37. The reference range was not used to interpr et this result as reji l/abnormal. [facility]ervillePrfdlhnDIUHVFOEL3300-87-52 21:13:00 Test Item Value Reference Range Interpretation Comments Bili Total (test code = Bili Total) 1.0 0.2-1.3 N [facility] [place]ervilleVteaiorCYFLAHNVL5281-84-90 21:13:00 Test Item Value Reference Range Interpretation Comments Alk Phos (test code = Alk Phos) 115 39-136 N [facility] [place]PjgazfrFOHMCKKRO4218-13-86 21:13:00 Test Item Value Reference Range Interpretation Comments ALT (test code = ALT) 56 See_Comment N [Auto mated message] The system which ge nerated this result transmit rohit reference range : <=65. The reference range was not used to interpr et this result as reji l/abnormal. [facility]ervilleHfpdlnkFYZWUQGAZ2723-07-22 21:13:00 Test Item Value Reference Range Interpretation Comments Total Protein (test code = Total 9.0 6.4-8.4 H Protein) [facility] [place]ervilleBrziyvdINETOLGLB9407-14-93 21:13:00 Test Item Value Reference Range Interpretation Comments Albumin Lvl (test code = Albumin Lvl) 4.8 3.5-5.0 N [facility] [place]ervilleMbcfdmyUXIYWAMDC7566-65-04 21:13:00 Test Item Value Reference Range Interpretation Comments Globulin (test code = Globulin) 4.2 2.0-4.0 H [facility]ervilleCaxtgxeQYGIMZUHU9374-55-17 21:13:00 Test Item Value Reference Range Interpretation Comments A/G Ratio (test code = A/G Ratio) 1.1 0.7-1.6 N [facility] [place]ervilleOppdazyUBTWXUUFB7206-77-96 21:13:00 Test Item Value Reference Range Interpretation Comments B/C Ratio (test code = B/C Ratio) 30 6-25 H [facility] HospitalVczlytsWPHREPLOZG1480-20-16 21:13:00 Test Item Value Reference Range Interpretation Comments RBC Morph (test code = Normal (08/19/2011 N RBC Morph) 15:13:00) [facility] HospitalHevnsvdYCUPPOFCDJ6187-30-66 21:13:00 Test Item Value Reference Range Interpretation Comments Large Plt (test code = Slight *ABN*(08/19/2011 A Large Plt) 15:13:00) [facility] HospitalGpifudwARDWPBGTCG1336-13-48 21:13:00 Test Item Value Reference Range Interpretation Comments Atypical Lymphs (test code = Atypical 0.0 N Lymphs) [facility] HospitalTolkydnTLIYKIYNII0789-38-61 21:13:00 Test Item Value Reference Range Interpretation Comments Bands (test code = 0.0 See_Comment N [Automat ed message] The Bands) system which ge nerated this result transmit rohit reference range : <=11.0. The reference r leo was not used to interpr et this result as reji l/abnormal. [facility]ervilleVrfjalkCCNTQGIEP2116-55-89 21:13:00 Test Item Value Reference Range Interpretation Comments AST (test code = AST) 23 See_Comment N [Auto mated message] The system which ge nerated this result transmit rohit reference range : <=37. The reference range was not used to interpr et this result as reji l/abnormal. [facility]ervilleQeineguUNBSOBUSM4632-84-80 21:13:00 Test Item Value Reference Range Interpretation Comments Bili Total (test code = Bili Total) 1.0 0.2-1.3 N [facility]ervilleWmpfaxzBKPJVJPYX2245-14-85 21:13:00 Test Item Value Reference Range Interpretation Comments Alk Phos (test code = Alk Phos) 115 39-136 N [facility]ervilleVqibfcaQJYLZSHHD5856-52-84 21:13:00 Test Item Value Reference Range Interpretation Comments ALT (test code = ALT) 56 See_Comment N [Auto mated message] The system which ge nerated this result transmit rohit reference range : <=65. The reference range was not used to interpr et this result as reji l/abnormal. [facility]ervilleAkuwphqDPQAHMCIR8419-67-10 21:13:00 Test Item Value Reference Range Interpretation Comments Total Protein (test code = Total 9.0 6.4-8.4 H Protein) [facility]ervilleJgvzgyyISNXBGZPE0858-08-10 21:13:00 Test Item Value Reference Range Interpretation Comments Albumin Lvl (test code = Albumin Lvl) 4.8 3.5-5.0 N [facility] [place]ervilleLbrsxfeFOCFQUXMM7716-54-86 21:13:00 Test Item Value Reference Range Interpretation Comments Globulin (test code = Globulin) 4.2 2.0-4.0 H [facility] [place]ervilleWhezzwpVIISQESOG4220-77-29 21:13:00 Test Item Value Reference Range Interpretation Comments A/G Ratio (test code = A/G Ratio) 1.1 0.7-1.6 N [facility] [place]ervilleBjexezkPMBNNXGDN4996-13-45 21:13:00 Test Item Value Reference Range Interpretation Comments B/C Ratio (test code = B/C Ratio) 30 6-25 H [facility] HospitalCamrtqyGXQRAVENKR9241-71-10 21:13:00 Test Item Value Reference Range Interpretation Comments RBC Morph (test code = Normal (08/19/2011 N RBC Morph) 15:13:00) [facility] HospitalQlydejoBNOTADKBLJ7306-00-22 21:13:00 Test Item Value Reference Range Interpretation Comments Large Plt (test code = Slight *ABN*(08/19/2011 A Large Plt) 15:13:00) [facility] HospitalKeoqfmgKUKHINVGIN8957-93-66 21:13:00 Test Item Value Reference Range Interpretation Comments Atypical Lymphs (test code = Atypical 0.0 N Lymphs) [facility] HospitalPminmnoRLHMNEMRTD9052-02-52 21:13:00 Test Item Value Reference Range Interpretation Comments Bands (test code = 0.0 See_Comment N [Automat ed message] The Bands) system which ge nerated this result transmit rohit reference range : <=11.0. The reference r leo was not used to interpr et this result as reji l/abnormal. [facility]ervilleKwibrwvBIDEUMRYM6480-23-53 21:13:00 Test Item Value Reference Range Interpretation Comments AST (test code = AST) 23 See_Comment N [Auto mated message] The system which ge nerated this result transmit rohit reference range : <=37. The reference range was not used to interpr et this result as reji l/abnormal. [facility]ervilleMtxrizoFSFSBVFOI7325-82-44 21:13:00 Test Item Value Reference Range Interpretation Comments Bili Total (test code = Bili Total) 1.0 0.2-1.3 N [facility] [place]ervilleIzbwyngAIDZTYMHF1353-93-84 21:13:00 Test Item Value Reference Range Interpretation Comments Alk Phos (test code = Alk Phos) 115 39-136 N [facility] [place]ervilleXlumqzsZPCVVVPLN1796-61-80 21:13:00 Test Item Value Reference Range Interpretation Comments ALT (test code = ALT) 56 See_Comment N [Auto mated message] The system which ge nerated this result transmit rohit reference range : <=65. The reference range was not used to interpr et this result as reji l/abnormal. [facility]ervilleYlfzphiDXKMGUBVZ5998-02-88 21:13:00 Test Item Value Reference Range Interpretation Comments Total Protein (test code = Total 9.0 6.4-8.4 H Protein) [facility]ervilleUemyrjkIDCNEPXIO7413-81-22 21:13:00 Test Item Value Reference Range Interpretation Comments Albumin Lvl (test code = Albumin Lvl) 4.8 3.5-5.0 N [facility]ervilleJcqnelkROTXVVTUW6867-87-02 21:13:00 Test Item Value Reference Range Interpretation Comments Globulin (test code = Globulin) 4.2 2.0-4.0 H [facility] [place]ervillePdkapfjOFXLOPTNI3928-90-65 21:13:00 Test Item Value Reference Range Interpretation Comments A/G Ratio (test code = A/G Ratio) 1.1 0.7-1.6 N [facility] [place]ervilleXtpnmgyYEVCTJDJJ5463-60-95 21:13:00 Test Item Value Reference Range Interpretation Comments B/C Ratio (test code = B/C Ratio) 30 6-25 H [facility] HospitalCwydbkkXLEKJBIWSF7653-18-40 21:13:00 Test Item Value Reference Range Interpretation Comments RBC Morph (test code = Normal (08/19/2011 N RBC Morph) 15:13:00) [facility] HospitalJhfukvlELXITLNYNT9185-50-62 21:13:00 Test Item Value Reference Range Interpretation Comments Large Plt (test code = Slight *ABN*(08/19/2011 A Large Plt) 15:13:00) [facility] HospitalQutncihEEJJRLGKIY1052-49-79 21:13:00 Test Item Value Reference Range Interpretation Comments Atypical Lymphs (test code = Atypical 0.0 N Lymphs) [facility] HospitalVlahndoKYJIGLRFZZ3567-67-42 21:13:00 Test Item Value Reference Range Interpretation Comments Bands (test code = 0.0 See_Comment N [Automat ed message] The Bands) system which ge nerated this result transmit rohit reference range : <=11.0. The reference r leo was not used to interpr et this result as reji l/abnormal. [facility]ervilleCrnymqsPHTJMYQUF6863-75-64 21:13:00 Test Item Value Reference Range Interpretation Comments AST (test code = AST) 23 See_Comment N [Auto mated message] The system which ge nerated this result transmit rohit reference range : <=37. The reference range was not used to interpr et this result as reji l/abnormal. [facility]ervilleXvsriirRKFSXWGLC3906-97-97 21:13:00 Test Item Value Reference Range Interpretation Comments Bili Total (test code = Bili Total) 1.0 0.2-1.3 N [facility] [place]ervilleVisyvvgNNISZQRQT7653-79-96 21:13:00 Test Item Value Reference Range Interpretation Comments Alk Phos (test code = Alk Phos) 115 39-136 N [facility]ervilleWjqajybTGYDCNUWH6979-84-13 21:13:00 Test Item Value Reference Range Interpretation Comments ALT (test code = ALT) 56 See_Comment N [Auto mated message] The system which ge nerated this result transmit rohit reference range : <=65. The reference range was not used to interpr et this result as reji l/abnormal. [facility]ervilleUlkstmiUDONTNBBL5929-07-29 21:13:00 Test Item Value Reference Range Interpretation Comments Total Protein (test code = Total 9.0 6.4-8.4 H Protein) [facility]ervilleDqhoddmJJKQOKZMP5710-05-39 21:13:00 Test Item Value Reference Range Interpretation Comments Albumin Lvl (test code = Albumin Lvl) 4.8 3.5-5.0 N [facility]ervilleNlrljxhPNGHOMJVO2321-20-53 21:13:00 Test Item Value Reference Range Interpretation Comments Globulin (test code = Globulin) 4.2 2.0-4.0 H [facility]ervilleGtylbysSPEJJTBHW0383-75-37 21:13:00 Test Item Value Reference Range Interpretation Comments A/G Ratio (test code = A/G Ratio) 1.1 0.7-1.6 N [facility] [place]ervilleLdunoznTPZQEYAGK8334-89-51 21:13:00 Test Item Value Reference Range Interpretation Comments B/C Ratio (test code = B/C Ratio) 30 6-25 H [facility] HospitalKjfihsuIFBPFOKDHS9416-11-32 21:13:00 Test Item Value Reference Range Interpretation Comments RBC Morph (test code = Normal (08/19/2011 N RBC Morph) 15:13:00) [facility] HospitalMdozpmfAVAEVKSWLG1587-24-26 21:13:00 Test Item Value Reference Range Interpretation Comments Large Plt (test code = Slight *ABN*(08/19/2011 A Large Plt) 15:13:00) [facility] HospitalCdvmxzcZYYPYLPCVW5029-04-21 21:13:00 Test Item Value Reference Range Interpretation Comments Atypical Lymphs (test code = Atypical 0.0 N Lymphs) [facility] HospitalNuhhrqhWQPBUQOSPC3692-06-32 21:13:00 Test Item Value Reference Range Interpretation Comments Bands (test code = 0.0 See_Comment N [Automat ed message] The Bands) system which ge nerated this result transmit rohit reference range : <=11.0. The reference r leo was not used to interpr et this result as reji l/abnormal. [facility]ervilleIqocskiGGTFKJNHX5763-58-23 21:10:00 Test Item Value Reference Range Interpretation Comments O2 Sat Roberth (test code = O2 Sat Roberth) 74.0 40.0-70.0 H [facility] [place]ervilleGdbscqoAYKSDGUSE5204-62-40 21:10:00 Test Item Value Reference Range Interpretation Comments Temp Roberth (test code = Temp Roberth) 37.0 [facility] [place]ervilleWfwgmxsDAFSPBZFL6907-09-14 21:10:00 Test Item Value Reference Range Interpretation Comments pO2 Roberth (test code = pO2 Roberth) 42 20-49 N [facility] [place]ervilleEqcdyjrRASTRZIDJ1286-79-99 21:10:00 Test Item Value Reference Range Interpretation Comments HCO3 Roberth (test code = HCO3 Roberth) 17.3 22.0-26.0 L [facility] [place]ervilleSsgcccfTYBZMVQKP8810-54-91 21:10:00 Test Item Value Reference Range Interpretation Comments pH Roberth (test code = pH Roberth) 7.34 7.28-7.42 N [facility]ervilleCloubryKBNDOGDGZ4767-88-57 21:10:00 Test Item Value Reference Range Interpretation Comments pCO2 Roberth (test code = pCO2 Roberth) 32 38-52 L [facility] [place]ervilleXelmodyIFXTDVCMP7296-49-79 21:10:00 Test Item Value Reference Range Interpretation Comments BE Roberth (test code = -7 See_Comment L [Automa rohit message] The BE Roberth) system which ge nerated this result transmit rohit reference range : <=2. The reference range was not used to interpr et this result as reji l/abnormal. [facility]ervilleInxwfxxCGNJSOXET1872-47-06 21:10:00 Test Item Value Reference Range Interpretation Comments O2 Sat Roberth (test code = O2 Sat Roberth) 74.0 40.0-70.0 H [facility] [place]ervillePqsxzhxIKYAUUXOQ5028-70-76 21:10:00 Test Item Value Reference Range Interpretation Comments Temp Roberth (test code = Temp Roberth) 37.0 [facility]ervilleThrynjbLEJETXRNG3619-28-47 21:10:00 Test Item Value Reference Range Interpretation Comments pO2 Roberth (test code = pO2 Roberth) 42 20-49 N [facility]ervilleLvfvcatNPWJNQSAD4931-26-48 21:10:00 Test Item Value Reference Range Interpretation Comments HCO3 Roberth (test code = HCO3 Roberth) 17.3 22.0-26.0 L [facility] [place]ervilleUwwccwwKMZQDQRWH7142-03-51 21:10:00 Test Item Value Reference Range Interpretation Comments pH Roberth (test code = pH Roberth) 7.34 7.28-7.42 N [facility] [place]ervilleMlihnioPLZVVHYIS6086-41-36 21:10:00 Test Item Value Reference Range Interpretation Comments pCO2 Roberth (test code = pCO2 Roberth) 32 38-52 L [facility] [place]ervillePecqatzBULYAKAST9074-67-27 21:10:00 Test Item Value Reference Range Interpretation Comments BE Roberth (test code = -7 See_Comment L [Automa rohit message] The BE Roberth) system which ge nerated this result transmit rohit reference range : <=2. The reference range was not used to interpr et this result as reji l/abnormal. [facility]ervilleFhvldgeXHMVELZKA6234-57-79 21:10:00 Test Item Value Reference Range Interpretation Comments O2 Sat Roberth (test code = O2 Sat Roberth) 74.0 40.0-70.0 H [facility] [place]ervilleUoofloaWBUJULQQB6214-61-63 21:10:00 Test Item Value Reference Range Interpretation Comments Temp Roberth (test code = Temp Roberth) 37.0 [facility]ervilleJfdqnnhNNYUBUIMC1914-56-25 21:10:00 Test Item Value Reference Range Interpretation Comments pO2 Roberth (test code = pO2 Roberth) 42 20-49 N [facility] [place]ervilleFlousslSYXDJISZH3306-56-13 21:10:00 Test Item Value Reference Range Interpretation Comments HCO3 Roberth (test code = HCO3 Roberth) 17.3 22.0-26.0 L [facility]ervilleOrwxrrhJYIDLJBRI1803-45-45 21:10:00 Test Item Value Reference Range Interpretation Comments pH Roberth (test code = pH Roberth) 7.34 7.28-7.42 N [facility]ervilleJvpqicnMNCBURJVQ4388-56-45 21:10:00 Test Item Value Reference Range Interpretation Comments pCO2 Roberth (test code = pCO2 Roberth) 32 38-52 L [facility] [place]ervilleQpbhhtpHZXXYGLAA5348-85-59 21:10:00 Test Item Value Reference Range Interpretation Comments BE Roberth (test code = -7 See_Comment L [Automa rohit message] The BE Roberth) system which ge nerated this result transmit rohit reference range : <=2. The reference range was not used to interpr et this result as reji l/abnormal. [facility]ervilleBdzhwbeGTFWXCWVD5283-21-22 21:10:00 Test Item Value Reference Range Interpretation Comments O2 Sat Roberth (test code = O2 Sat Roberth) 74.0 40.0-70.0 H [facility]ervilleDjtngvjYHCVYOKVU3578-81-38 21:10:00 Test Item Value Reference Range Interpretation Comments Temp Roberth (test code = Temp Roberth) 37.0 [facility]ervilleXxqscnbPIIIYIOZT5115-61-04 21:10:00 Test Item Value Reference Range Interpretation Comments pO2 Roberth (test code = pO2 Roberth) 42 20-49 N [facility] [place]ervilleAszdgklMXJHMJMZO4757-23-41 21:10:00 Test Item Value Reference Range Interpretation Comments HCO3 Roberth (test code = HCO3 Roberth) 17.3 22.0-26.0 L [facility] [place]ervilleClgcsrrKDPBSPUSQ2571-43-63 21:10:00 Test Item Value Reference Range Interpretation Comments pH Roberth (test code = pH Roberth) 7.34 7.28-7.42 N [facility] [place]ervilleEvpmwriYCWVSGWAV9108-79-83 21:10:00 Test Item Value Reference Range Interpretation Comments pCO2 Roberth (test code = pCO2 Roberth) 32 38-52 L [facility] [place]ervilleHhyozocVKUZBCSCP2709-07-87 21:10:00 Test Item Value Reference Range Interpretation Comments BE Roberth (test code = -7 See_Comment L [Automa rohit message] The BE Roberth) system which ge nerated this result transmit rohit reference range : <=2. The reference range was not used to interpr et this result as reji l/abnormal. [facility]ervilleFckruzrMDTPECXHB2331-20-89 21:10:00 Test Item Value Reference Range Interpretation Comments O2 Sat Roberth (test code = O2 Sat Roberth) 74.0 40.0-70.0 H [facility] [place]ervilleYqvtufxELBOZTPHO3011-72-24 21:10:00 Test Item Value Reference Range Interpretation Comments Temp Roberth (test code = Temp Roberth) 37.0 [facility] [place]ervilleUrbvzmwOEWRUUUGM8645-78-07 21:10:00 Test Item Value Reference Range Interpretation Comments pO2 Roberth (test code = pO2 Roberth) 42 20-49 N [facility] [place]ervilleHxtfyjbPLVHZZQNY3431-54-37 21:10:00 Test Item Value Reference Range Interpretation Comments HCO3 Roberth (test code = HCO3 Roberth) 17.3 22.0-26.0 L [facility] [place]ervilleKfwwjiuFGATCVKFI6242-55-46 21:10:00 Test Item Value Reference Range Interpretation Comments pH Roberth (test code = pH Roberth) 7.34 7.28-7.42 N [facility] [place]ervilleQnbsofiTSGUQQAPK9933-64-48 21:10:00 Test Item Value Reference Range Interpretation Comments pCO2 Roberth (test code = pCO2 Roberth) 32 38-52 L [facility] [id number] 21:10:00 Test Item Value Reference Range Interpretation Comments BE Roberth (test code = -7 See_Comment L [Automa rohit message] The BE Roberth) system which ge nerated this result transmit rohit reference range : <=2. The reference range was not used to interpr et this result as reji l/abnormal. [id number] 20:34:00 Test Item Value Reference Range Interpretation Comments CDC-HIV 1/2 Ab (test Negative *NA*(08/19/2011 code = CDC-HIV 1/2 14:34:00) Ab) [facility] [id number] 20:34:00 Test Item Value Reference Range Interpretation Comments CDC-HIV 1/2 Ab (test Negative *NA*(08/19/2011 code = CDC-HIV 1/2 14:34:00) Ab) [facility] [id number] 20:34:00 Test Item Value Reference Range Interpretation Comments CDC-HIV 1/2 Ab (test Negative *NA*(08/19/2011 code = CDC-HIV 1/2 14:34:00) Ab) [facility] [id number] 20:34:00 Test Item Value Reference Range Interpretation Comments CDC-HIV 1/2 Ab (test Negative *NA*(08/19/2011 code = CDC-HIV 1/2 14:34:00) Ab) [id number] 20:34:00 Test Item Value Reference Range Interpretation Comments CDC-HIV 1/2 Ab (test Negative *NA*(08/19/2011 code = CDC-HIV 1/2 14:34:00) Ab) [facility]
[2022-11-30 23:45] LABS: Absolute Lymphocytes (CBC) 0.7 K/uL (0.7-4.9); Hematocrit 28.6 % (36.0-45.0); Lymphocytes % 20.8 % (15.3-44.8); MCV 89.5 fL (80-100); MPV 9.6 fL (7.6-11.3); RBC Red Blood Cell Count 3.19 M/uL (3.86-4.86)
[2022-12-01 00:16] LABS: Albumin 3.3 g/dL (3.4-5.0); Bilirubin Total 0.8 mg/dL (0.2-1.0); Potassium 4.8 mEq/L (3.5-5.1); Protein, Total 6.7 g/dL (6.4-8.2); Troponin High Sensitivity 14.6 pg/mL (<58.9)
--- NOTE | 2022-12-01 00:36 | EDPHYS ---
Physician Documentation [facility] Name: Cathi Zaldivar Age: 42 yrs Sex: Female : 1980 Arrival Date: 11/30/2022 Time: 21:24 Bed 3 Private MD: ED Physician Errol Elizalde HPI: 11/30 23:01 This 42 yrs old Female presents to ER via EMS with complaints of Abdominal rt pain. 23:01 Patient with history of ESRD, gastroparesis presents to the ED with abdominal pain, rt nausea, vomiting, diarrhea starting this morning at about 6 AM. The patient did not go to dialysis today due to the symptoms, last had a dialysis session on Wednesday. States that the pain is consistent with prior episodes of gastroparesis. Denies other acute complaints at this time. Symptoms are moderate in severity, aching nature, nonradiating, no other aggravating or alleviating factors.. Historical: - Allergies: 21:40 ambien; jb4 21:40 Codeine; jb4 21:40 GUAIFENESIN; jb4 21:40 Lisinopril; jb4 21:40 Morphine; jb4 21:40 Nitrofurantoin Macrocrystal; jb4 21:40 PENICILLINS; jb4 21:40 Prolixin; jb4 21:40 zolpidem tartrate; jb4 21:40 Tape; jb4 21:40 GABAPENTIN; jb4 21:40 Seroquel; jb4 - PMHx: 21:40 "mental problems"; cardiac arrest; CHF; chronic kidney disease; cyclic vomiting jb4 syndrome; Diabetes - NIDDM; Dialysis; m-w-f; ENCEPHALOPATHY; Gastroparesis; Hypertension; ibs; liver failure; PERIPHERAL NEUROPATHY; pseudo aneurysm R groin; Seizures; - PSHx: 21:40 section; dialysis catheter R chest wall; eye removed; jb4 - Family history:: not pertinent. ROS: 23:01 Constitutional: Negative for fever, chills, and weight loss, Eyes: Negative for injury, rt pain, redness, and discharge, Cardiovascular: Negative for chest pain, palpitations, and edema, Respiratory: Negative for shortness of breath, cough, wheezing, and pleuritic chest pain, MS/Extremity: Negative for injury and deformity, Skin: Negative for injury, rash, and discoloration, Neuro: Negative for headache, weakness, numbness, tingling, and seizure, Psych: Negative for depression, anxiety, suicide ideation, homicidal ideation, and hallucinations. 23:01 Abdomen/GI: Positive for abdominal pain, nausea, vomiting, and diarrhea. Exam: 23:01 Constitutional: This is a well developed, well nourished patient who is awake, alert, rt and in no acute distress. Head/Face: Normocephalic, atraumatic. Chest/axilla: Normal chest wall appearance and motion. Nontender with no deformity. No lesions are appreciated. Cardiovascular: Regular rate and rhythm with a normal S1 and S2. No gallops, murmurs, or rubs. Normal PMI, no JVD. No pulse deficits. Respiratory: Lungs have equal breath sounds bilaterally, clear to auscultation and percussion. No rales, rhonchi or wheezes noted. No increased work of breathing, no retractions or nasal flaring. Skin: Warm, dry with normal turgor. Normal color with no rashes, no lesions, and no evidence of cellulitis. MS/ Extremity: Pulses equal, no cyanosis. Neurovascular intact. Full, normal range of motion. Neuro: Awake and alert, GCS 15, oriented to person, place, time, and situation. Cranial nerves II-XII grossly intact. Motor strength 5/5 in all extremities. Sensory grossly intact. Cerebellar exam normal. Normal gait. Psych: Awake, alert, with orientation to person, place and time. Behavior, mood, and affect are within normal limits. 23:01 ECG was reviewed by the Attending Physician. 23:01 Abdomen/GI: Mild tenderness diffusely without rebound, guarding, distention. Vital Signs: 21:37 BP 207 / 117; Pulse 87; Resp 18; Temp 99.2; Pulse Ox 98% on R/A; Weight 80.5 kg (M); jb4 Height 5 ft. 1 in. ; Pain 10/10; 22:29 BP 189 / 109; Pulse 94; Resp 20; Pulse Ox 98% ; jb4 23:16 BP 203 / 113; Pulse 91; Resp 20; Pulse Ox 98% ; jb4 23:52 BP 198 / 111; Pulse 91; Resp 20; Pulse Ox 96% on R/A; jb4 12/01 00:38 BP 208 / 111; Pulse 90; Resp 20; Temp 98.3(O); Pulse Ox 98% on R/A; jb4 11/30 21:37 Body Mass Index 33.53 (80.50 kg, 154.94 cm) [facility] 11/30 21:37 Pain Scale: Adult jb4 MDM: 11/30 21:37 Patient medically screened. rt 12/01 00:39 Differential diagnosis: Gastroparesis, pancreatitis, hyperkalemia. Data reviewed: vital rt signs, nurses notes. Consideration of Admission/Observation Escalation of care including admission/observation considered. I considered the following discharge prescriptions or medication management in the emergency department Medications were administered in the Emergency Department. See MAR. Test considered but Not performed: CT: Patient with a significant amount of CT scans, believe that the risk of repeat radiation greater than the risk of a surgical pathology, CT scan not indicated. Care significantly affected by the following chronic conditions: Gastroparesis, ESRD. Counseling: I had a detailed discussion with the patient and/or guardian regarding: the historical points, exam findings, and any diagnostic results supporting the discharge/admit diagnosis, the presence of at least one elevated blood pressure reading (>120/80) during this emergency department visit, lab results, the need for outpatient follow up. Response to treatment: the patient's symptoms have markedly improved after treatment. 11/30 21:39 Order name: CBC with Diff; Complete Time: 00:43 rt 11/30 21:39 Order name: CMP; Complete Time: 00:31 rt 11/30 21:39 Order name: Lipase; Complete Time: 00:31 rt 11/30 21:39 Order name: Troponin High Sensitivity; Complete Time: 00:31 rt 12/01 00:00 Order name: CBC Smear Scan; Complete Time: 00:43 EDMS 11/30 21:39 Order name: EKG; Complete Time: 21:40 rt 11/30 21:39 Order name: EKG - Nurse/Tech; Complete Time: 22:05 rt EC/12 23:01 Rate is 89 beats/min. Rhythm is regular, Normal Sinus Rhythm with No ectopy. QRS [place] rt is Normal. [place] interval is normal. QRS interval is normal. QT interval is normal. No Q waves. T waves are Normal. No ST changes noted. Interpreted by me. Administered Medications: 22:16 Not Given (Other Intervention Used): metoCLOPramide IVP 10 mg IVP once; over 1 to 2 jb4 minutes 22:16 Not Given (Other Intervention Used): diphenhydrAMINE IVP 25 mg IVP once jb4 22:24 Drug: Dicyclomine IM 20 mg Route: IM; Site: left gluteus; jb4 22:24 Drug: diphenhydrAMINE IM 25 mg Route: IM; Site: left deltoid; jb4 22:24 Drug: metoCLOPramide IM 10 mg Route: IM; Site: left gluteus; jb4 Disposition Summary: 12/01/22 00:35 Discharge Ordered Location: Home rt Problem: an acute exacerbation rt Symptoms: are resolved rt Condition: Stable rt Diagnosis - Gastroparesis rt Followup: rt - With: Private Physician - When: 1 - 2 days - Reason: dialysis Discharge Instructions: - Discharge Summary Sheet rt - Gastroparesis rt Forms: - Medication Reconciliation Form rt - Thank You Letter rt - Antibiotic Education rt - Prescription Opioid Use rt Prescriptions: - dicyclomine 10 mg Oral Capsule - take 1 capsule by ORAL route 4 times per day; 18 capsule; Refills: 0, Product rt Selection Permitted Signatures: Dispatcher [employer] Silverio Zepeda, TABATHA RN jb4 Errol Elizalde MD MD rt
--- NOTE | 2022-12-01 00:36 | ER ---
Nurse's Notes [facility] Name: Cathi Zaldivar Age: 42 yrs Sex: Female : 1980 Arrival Date: 11/30/2022 Time: 21:24 Bed 3 Private MD: Diagnosis: Gastroparesis Presentation: 11/30 21:37 Chief complaint: EMS states: Pt reports abdominal pain. She thinks it is her jb4 gastroparesis acting up. BGL 93. Coronavirus screen: At this time, the client does not indicate any symptoms associated with coronavirus-19. Ebola Screen: No symptoms or risks identified at this time. Initial Sepsis Screen: Does the patient meet any 2 criteria? No. Patient's initial sepsis screen is negative. Does the patient have a suspected source of infection? Yes: Acute abdominal pain. Risk Assessment: Do you want to hurt yourself or someone else? Patient reports no desire to harm self or others. Onset of symptoms was November 30, 2022. Transition of care: patient was not received from another setting of care. 21:37 Method Of Arrival: EMS: [facility] jb4 21:37 Acuity: JESSICA 3 jb4 Historical: - Allergies: 21:40 ambien; jb4 21:40 Codeine; jb4 21:40 GUAIFENESIN; jb4 21:40 Lisinopril; jb4 21:40 Morphine; jb4 21:40 Nitrofurantoin Macrocrystal; jb4 21:40 PENICILLINS; jb4 21:40 Prolixin; jb4 21:40 zolpidem tartrate; jb4 21:40 Tape; jb4 21:40 GABAPENTIN; jb4 21:40 Seroquel; jb4 - PMHx: 21:40 "mental problems"; cardiac arrest; CHF; chronic kidney disease; cyclic vomiting jb4 syndrome; Diabetes - NIDDM; Dialysis; m-w-f; ENCEPHALOPATHY; Gastroparesis; Hypertension; ibs; liver failure; PERIPHERAL NEUROPATHY; pseudo aneurysm R groin; Seizures; - PSHx: 21:40 section; dialysis catheter R chest wall; eye removed; jb4 - Family history:: not pertinent. Screenin:05 [facility] ED Fall Risk Assessment (Adult) History of falling in the last 3 months, jb4 including since admission No falls in past 3 months (0 pts) Confusion or Disorientation No (0 pts) Score/Fall Risk Level 0 - 2 = Low Risk Oriented to surroundings, Maintained a safe environment. Abuse screen: Denies threats or abuse. Nutritional screening: No deficits noted. Tuberculosis screening: No symptoms or risk factors identified. Assessment: 22:05 General: Appears in no apparent distress. uncomfortable, Behavior is cooperative, jb4 anxious. Pain: Complains of pain in abdomen Pain does not radiate. Pain currently is 10 out of 10 on a pain scale. Neuro: Level of Consciousness is awake, alert, obeys commands, Oriented to person, place, time, situation. Cardiovascular: Patient's skin is warm and dry. Respiratory: Airway is patent Respiratory effort is even, unlabored, Respiratory pattern is regular, symmetrical. GI: Abdomen is non-distended, obese, Reports lower abdominal pain, upper abdominal pain. : No signs and/or symptoms were reported regarding the genitourinary system. EENT: No signs and/or symptoms were reported regarding the EENT system. Derm: Skin is intact, Skin is pink, warm \\T\\ dry. Musculoskeletal: Circulation, motion, and sensation intact. Range of motion: intact in all extremities. 23:00 Reassessment: Pt is resting in bed with eyes closed, respirations are even and jb4 unlabored with no s/s of pain or distress noted. 23:52 Reassessment: Patient appears in no apparent distress at this time. No changes from jb4 previously documented assessment. Patient and/or family updated on plan of care and expected duration. Pain level reassessed. 12/01 00:38 Reassessment: Patient appears in no apparent distress at this time. Patient and/or jb4 family updated on plan of care and expected duration. Pain level reassessed. Patient is alert, oriented x 3, equal unlabored respirations, skin warm/dry/pink. Provider aware of continuously high blood pressures. no new orders. Patient denies pain at this time. Patient states feeling better. Patient states symptoms have improved. Vital Signs: 11/30 21:37 BP 207 / 117; Pulse 87; Resp 18; Temp 99.2; Pulse Ox 98% on R/A; Weight 80.5 kg (M); jb4 Height 5 ft. 1 in. ; Pain 10/10; 22:29 BP 189 / 109; Pulse 94; Resp 20; Pulse Ox 98% ; jb4 23:16 BP 203 / 113; Pulse 91; Resp 20; Pulse Ox 98% ; jb4 23:52 BP 198 / 111; Pulse 91; Resp 20; Pulse Ox 96% on R/A; jb4 12/01 00:38 BP 208 / 111; Pulse 90; Resp 20; Temp 98.3(O); Pulse Ox 98% on R/A; jb4 11/30 21:37 Body Mass Index 33.53 (80.50 kg, 154.94 cm) jb4 11/30 21:37 Pain Scale: Adult jb4 ED Course: 11/30 21:34 Patient arrived in ED. as7 21:37 Errol Elizalde MD is Attending Physician. rt 21:37 Silverio Macias, RN is Primary Nurse. jb4 21:40 Triage completed. jb4 21:40 Arm band placed on right wrist. jb4 22:05 Patient has correct armband on for positive identification. Bed in low position. Call jb4 light in reach. Side rails up X 1. Client placed on continuous cardiac and pulse oximetry monitoring. NIBP monitoring applied. manager monitoring on. 22:16 Lipase Sent. kd3 22:16 CMP Sent. kd3 22:16 CBC with Diff Sent. kd3 23:10 No provider procedures requiring assistance completed. Inserted saline lock: 24 gauge pf1 in right ,using aseptic technique. breast Blood collected. 12/01 00:56 IV discontinued, intact, bleeding controlled, No redness/swelling at site. Pressure jb4 dressing applied. Administered Medications: 11/30 22:16 Not Given (Other Intervention Used): metoCLOPramide IVP 10 mg IVP once; over 1 to 2 jb4 minutes 22:16 Not Given (Other Intervention Used): diphenhydrAMINE IVP 25 mg IVP once jb4 22:24 Drug: Dicyclomine IM 20 mg Route: IM; Site: left gluteus; jb4 22:24 Drug: diphenhydrAMINE IM 25 mg Route: IM; Site: left deltoid; jb4 22:24 Drug: metoCLOPramide IM 10 mg Route: IM; Site: left gluteus; jb4 Medication: 22:05 VIS not applicable for this client. jb4 Outcome: 12/01 00:35 Discharge ordered by . rt 00:56 Discharged to home via wheelchair, with family. jb4 00:56 Condition: stable 00:56 Discharge instructions given to patient, Instructed on discharge instructions, follow up and referral plans. medication usage, Demonstrated understanding of instructions, follow-up care, medications, Prescriptions given X 1. 00:57 Patient left the ED. jb4 Signatures: Silverio Macias RN RN jb4 Helen Justin RN RN kd3 Errol Elizalde MD MD rt Jessica Da Silva RN RN pf1 Rita Dior as7 Corrections: (The following items were deleted from the chart) 00:57 00:38 BP 208 / 111; Pulse 90bpm; Resp 20bpm; Pulse Ox 98% RA; jb4 jb4
[2022-12-01 00:42] LABS: Blood Morphology Comment NOT SEEN (NOT SEEN); Platelet Estimate DECR; White Blood Cell Scan OK (OK)
[2022-12-01 02:48] VITALS: BP 208/111; TEMP 98.3; O2SAT 98
--- NOTE | 2022-12-02 08:21 | EKG ---
Test Date: 2022-11-30 Test Time: 22:00:24 Singing Messenger: [place] MEASUREMENT RESULTS: Intervals: Rate: 89 TN: 144 QRSD: 92 QT: 372 QTc: 452 [place]: P: 27 TN: 144 QRS: 50 T: 71 INTERPRETIVE STATEMENTS: Normal sinus rhythm Normal ECG Compared to ECG 10/26/2022 19:26:15 Prolonged QT interval no longer present Electronically Signed On 12-02-22 08:18:06 CDT by Juan Hogan
== END 2022-12-01 00:57 | disposition home or self-care (01) ==
LOC: ER 21:24
DX: K31.84 Gastroparesis (principal); E11.22 Type 2 diabetes mellitus with diabetic chronic kidney disease; I13.2 Hypertensive heart and chronic kidney disease with heart failure and with stage 5 chronic kidney disease, or end stage renal disease; N18.6 End stage renal disease; I50.9 Heart failure, unspecified; Z99.2 Dependence on renal dialysis; Z88.0 Allergy status to penicillin; Z88.5 Allergy status to narcotic agent; Z88.8 Allergy status to other drugs, medicaments and biological substances; Z91.048 Other nonmedicinal substance allergy status
CPT/HCPCS: 93005; 85025; 36415; 84484; 83690; 80053; 96372; 99285; J2765; J0500; J1200

== ENCOUNTER 2022-12-02 12:37 | Emergency (ER) | payer MEDICARE, OTHER ==
--- NOTE | 2022-12-02 12:51 | EDPHYS ---
Physician Documentation [facility] Name: Cathi Zaldivar Age: 42 yrs Sex: Female : 1980 Arrival Date: 12/02/2022 Time: 12:37 Bed 6 Private MD: ED Physician Sam Nagel HPI: 12/02 12:47 This 42 yrs old Female presents to ER via Unassigned with complaints of sp3 Nausea/Vomiting/Diarrhea. 12:47 42-year-old female well-known to the emergency department history of end-stage renal sp3 disease, insulin dependent diabetes diabetes, hypertension, chronic medical problems chronic gastroparesis now presents to the ED with chief complaint nausea vomiting and diarrhea which is mild in nature. She has missed her dialysis on Wednesday and is scheduled for today at 1 PM. Given the mild nature of her symptoms, we will give her p.o. Zofran and have her discharged to go to her dialysis which is most important aspect of her current treatment plan that she needs. Patient denies headache, chest pain, significant shortness of breath, fever, or any other signs or symptoms on ROS at this time.. Historical: - Allergies: 12:46 ambien; ll1 12:46 Codeine; ll1 12:46 GABAPENTIN; ll1 12:46 GUAIFENESIN; ll1 12:46 Lisinopril; ll1 12:46 Morphine; ll1 12:46 Nitrofurantoin Macrocrystal; ll1 12:46 PENICILLINS; ll1 12:46 Prolixin; ll1 12:46 Seroquel; ll1 12:46 Tape; ll1 12:46 zolpidem tartrate; ll1 - PMHx: 12:46 "mental problems"; cardiac arrest; CHF; chronic kidney disease; cyclic vomiting ll1 syndrome; Diabetes - NIDDM; Dialysis; m-w-f; ENCEPHALOPATHY; Gastroparesis; Hypertension; ibs; liver failure; PERIPHERAL NEUROPATHY; pseudo aneurysm R groin; Seizures; - PSHx: 12:46 section; dialysis catheter R chest wall; eye removed; ll1 - Immunization history:: Adult Immunizations up to date. - Social history:: Smoking status: Patient denies any tobacco usage or history of. ROS: 12:48 Constitutional: Negative for fever, chills, and weight loss, Eyes: Negative for injury, sp3 pain, redness, and discharge, ENT: Negative for injury, pain, and discharge, Neck: Negative for injury, pain, and swelling, Cardiovascular: Negative for chest pain, palpitations, and edema, MS/Extremity: Negative for injury and deformity, Skin: Negative for injury, rash, and discoloration, Neuro: Negative for headache, weakness, numbness, tingling, and seizure. 12:48 All other systems are negative. Exam: 12:48 Constitutional: This is a well developed, well nourished patient who is awake, alert, sp3 and in no acute distress. Head/Face: Normocephalic, atraumatic. Eyes: Pupils equal round and reactive to light, extra-ocular motions intact. Lids and lashes normal. Conjunctiva and sclera are non-icteric and not injected. Cornea within normal limits. Periorbital areas with no swelling, redness, or edema. ENT: Nares patent. No nasal discharge, no septal abnormalities noted. External auditory canals are clear. Oropharynx with no redness, swelling, or masses, exudates, or evidence of obstruction, uvula midline. Mucous membranes moist. Neck: Trachea midline, no thyromegaly or masses palpated, and no cervical lymphadenopathy. Supple, full range of motion without nuchal rigidity, or vertebral point tenderness. No Meningismus. Chest/axilla: Normal chest wall appearance and motion. Nontender with no deformity. No lesions are appreciated. Cardiovascular: Regular rate and rhythm with a normal S1 and S2. No gallops, murmurs, or rubs. Normal PMI, no JVD. No pulse deficits. Back: No spinal tenderness. No costovertebral tenderness. Full range of motion. Neuro: Awake and alert, GCS 15, oriented to person, place, time, and situation. Cranial nerves II-XII grossly intact. Motor strength 5/5 in all extremities. Sensory grossly intact. Cerebellar exam normal. Normal gait. Psych: Awake, alert, with orientation to person, place and time. Behavior, mood, and affect are within normal limits. 12:48 Respiratory: Lungs have equal breath sounds bilaterally, clear to auscultation and percussion. No rales, rhonchi or wheezes noted. No increased work of breathing, no retractions or nasal flaring. 12:48 Abdomen/GI: Soft abdomen without peritoneal signs, rebound or guarding. Vital Signs: 12:47 BP 172 / 118; Pulse 80; Resp 18; Temp 98.1; Pulse Ox 98% on R/A; Pain 8/10; ll1 12:47 Pain Scale: Adult ll1 MDM: 12:44 Patient medically screened. sp3 12:49 Data reviewed: vital signs, nurses notes. ED course: Patient is stable with no active sp3 emesis at this time. Vital signs are stable except for BP of 172/118. Patient needs dialysis and we will safely discharge her to go to her outpatient dialysis at this time. She may return afterwards if she has any continuing symptoms. Patient is called a ride to pick her up to take her over immediately.. Administered Medications: No medications were administered Disposition Summary: 12/02/22 12:50 Discharge Ordered Location: Home sp3 Condition: Stable sp3 Diagnosis - End-stage renal disease, gastroparesis sp3 Followup: sp3 - With: Private Physician - When: Upon discharge from the Emergency Department - Reason: Continuance of care Discharge Instructions: - Discharge Summary Sheet sp3 - Dialysis sp3 Forms: - Medication Reconciliation Form sp3 - Thank You Letter sp3 - Antibiotic Education sp3 - Prescription Opioid Use sp3 Signatures: Georgette Longoria RN RN ll1 Sam Nagel MD MD sp3
--- NOTE | 2022-12-02 12:51 | ER ---
Nurse's Notes [facility] Name: Cathi Zaldivar Age: 42 yrs Sex: Female : 1980 Arrival Date: 12/02/2022 Time: 12:37 Bed 6 Private MD: Diagnosis: End-stage renal disease, gastroparesis Presentation: 12/02 12:47 Chief complaint: Patient states: N/V/D since Wednesday. No dialysis this week. Coronavirus ll1 screen: Client denies travel out of the [place] in the last 14 days. At this time, the client does not indicate any symptoms associated with coronavirus-19. Ebola Screen: Patient denies travel to an Ebola-affected area in the 21 days before illness onset. Initial Sepsis Screen: Does the patient meet any 2 criteria? No. Patient's initial sepsis screen is negative. Does the patient have a suspected source of infection? Yes: Acute abdominal pain. Risk Assessment: Do you want to hurt yourself or someone else? Patient reports no desire to harm self or others. Onset of symptoms was November 30, 2022. 12:47 Method Of Arrival: Wheelchair ll1 12:47 Acuity: JESSICA 4 ll1 Triage Assessment: 12:48 General: Appears uncomfortable, Behavior is calm, cooperative, appropriate for age. ll1 Pain: Complains of pain in abdomen Quality of pain is described as aching. Neuro: No deficits noted. Cardiovascular: No deficits noted. Respiratory: No deficits noted. GI: Reports lower abdominal pain, upper abdominal pain, cramping, diarrhea, nausea, vomiting. Historical: - Allergies: 12:46 ambien; ll1 12:46 Codeine; ll1 12:46 GABAPENTIN; ll1 12:46 GUAIFENESIN; ll1 12:46 Lisinopril; ll1 12:46 Morphine; ll1 12:46 Nitrofurantoin Macrocrystal; ll1 12:46 PENICILLINS; ll1 12:46 Prolixin; ll1 12:46 Seroquel; ll1 12:46 Tape; ll1 12:46 zolpidem tartrate; ll1 - PMHx: 12:46 "mental problems"; cardiac arrest; CHF; chronic kidney disease; cyclic vomiting ll1 syndrome; Diabetes - NIDDM; Dialysis; m-w-f; ENCEPHALOPATHY; Gastroparesis; Hypertension; ibs; liver failure; PERIPHERAL NEUROPATHY; pseudo aneurysm R groin; Seizures; - PSHx: 12:46 section; dialysis catheter R chest wall; eye removed; ll1 - Immunization history:: Adult Immunizations up to date. - Social history:: Smoking status: Patient denies any tobacco usage or history of. Vital Signs: 12:47 BP 172 / 118; Pulse 80; Resp 18; Temp 98.1; Pulse Ox 98% on R/A; Pain 8/10; ll1 12:47 Pain Scale: Adult ll1 ED Course: 12:40 Patient arrived in ED. kj1 12:41 Sam Nagel MD is Attending Physician. sp3 12:46 Arm band placed on Patient placed in an exam room, on a stretcher. ll1 12:48 Triage completed. ll1 12:55 No provider procedures requiring assistance completed. Patient did not have IV access sc3 during this emergency room visit. Administered Medications: No medications were administered Outcome: 12:50 Discharge ordered by . sp3 12:55 Discharged to home ambulatory. sc3 12:55 Condition: stable 12:55 Discharge instructions given to patient, Instructed on discharge instructions, follow up and referral plans. Demonstrated understanding of instructions, follow-up care. 12:55 Patient left the ED. sc3 Signatures: Prerna Sanders kj1 Georgette Longoria, RN RN ll1 Sam Nagel MD MD sp3 Sina Arredondo RN RN sc3
[2022-12-02 13:03] VITALS: BP 172/118; TEMP 98.1; O2SAT 98
--- OUTSIDE RECORDS SUMMARY | 2022-12-02 13:51 | XMS REPORT | Continuity of Care Document ---
:1980 Author Organization [facility] t Address [address] [facility] [address] [place] [address] Care Team Providers Name Role Phone SHARPLESS Primary Care Physician Unavailable Sanya Attending Clinician Unavailable Nodal_J Attending Clinician Unavailable Peg Attending Clinician Unavailable RAJ WEST Attending Clinician Unavailable Jose Miguel Morin DO Attending Clinician Rosy BURNS, Brooke Ricci Attending Clinician [phone] Seth HOGUEC, Bessie Parks Attending Clinician Anthony Forrest Attending Clinician Unavailable Melany Gilbert Attending Clinician Pat BURNS, Sivan Brand Attending Clinician Isra BURNS, Rachel Lew Attending Clinician [phone] Robe BURNS, Holden Elmore Attending Clinician Magaly BURNS, Shanda Higuera Attending Clinician Endy BURNS, Aurelio Attending Clinician Alesia Dodd Attending Clinician Joe BURNS, Mando Raphael Attending Clinician [phone] Jose Carlos BURNS, Veto Vincent Attending Clinician Kenyatta BURNS, Juwan Attending Clinician Doc BURNS, Sofi Juárez Attending Clinician [phone] Robert MAYS, Gayle Attending Clinician Unavailable Frankie Chowdhury MD Attending Clinician Chandler Silverman Attending Clinician MD RACHEL BRASHER Attending Clinician Unavailable MD SHANDA SHAHID Attending Clinician Unavailable Leah Ureña MA Attending Clinician Unavailable Anand_Eduin Attending Clinician Unavailable Tam MAYS, Maria M Attending Clinician Unavailable Anila Boles MA Attending Clinician Unavailable Sheikh KATY, Tom Attending Clinician August BURNS, Marilu Sheridan Attending Clinician Adam BURNS, Sukhjinder Argueta Attending Clinician Hanane Hernandes Attending Clinician MD JUWAN YOU Attending Clinician Unavailable Corin MAYS, Elodia Attending Clinician Unavailable Doctor Unassigned, [place] Attending Clinician Unavailable MONA BHAT Attending Clinician Unavailable Missy Garcia RN Attending Clinician Unavailable Jimena Easton DO Attending Clinician Arun BURNS, Eze Vail Attending Clinician Obed Gray MD Attending Clinician Monisha Bajwa Attending Clinician MONISHA BAJWA Attending Clinician Unavailable Alexandr Diane MD Attending Clinician OZ KIMBLE K.H. Attending Clinician Unavailable Hui Wright Attending Clinician HUI WRIGHT Attending Clinician Unavailable JOSE LUIS GONZALEZ Attending Clinician Unavailable Lamin BURNS, Oz K.H. Attending Clinician Jose Luis Gonzalez MD Attending Clinician Earl Sanchez DO Attending Clinician DEJA SANDOVAL Attending Clinician Unavailable Black BLANCHARD, Deja Maagllon Attending Clinician [phone] Pc, Adc Echo Room 1 - Attending [...] Unavailable Yissel Rust MD Attending Clinician Stacie Edgra Attending Clinician ZEKE RUVALCABA Attending Clinician Unavailable Adán Horn MD Attending Clinician Outpt-Josy, Ccl Attending Clinician Unavailable Gary Manrique MD Attending Clinician Brandon Holt MD Attending Clinician LY DORADO Attending Clinician Unavailable MOISE BHAKTA Attending Clinician Unavailable Luna Jamison Attending Clinician Joe Juárez Attending Clinician Atul Valdez Attending Clinician Daquan_b Admitting Clinician Unavailable Nodal_J Admitting Clinician Unavailable Deshazo_T Admitting Clinician Unavailable RACHEL BRASHER Admitting Clinician Unavailable MD RACHEL BRASHER Admitting Clinician Unavailable Adams_R Admitting Clinician Unavailable TOM BARBER Admitting Clinician Unavailable MD JUWAN YOU Admitting Clinician Unavailable Arun Espitia MD, Victor J Admitting Clinician [phone] Hui Wright Admitting Clinician HUI WRIGHT Admitting Clinician Unavailable Rei Waldron Admitting Clinician Unavailable MOISE BHAKTA Admitting Clinician Unavailable Danae Cha Admitting Clinician Joe Juárez Admitting Clinician Payers Payer Name Policy Type Policy Number Effective Date Expiration Date S karla MEDICARE PART A AND [id number] 2014 2021 B 00:00:00 00:00:00 [employer] [facility] [facility] [id number] 2020 00:00:00 MEDICARE PART A \\T\\ [id number] 2014 B 00:00:00 MEDICAID OF [place] [id number] 2020 00:00:00 [employer] [id number] 2021 (MEDICARE 00:00:00 REPLACEMENT HMO) MEDICARE A B [id number] 2014 00:00:00 [place]ICAID [place] [id number] 2016 00:00:00 Problems Condition Condition Condition Status Onset Resolution Last Treating Co mments Source Name Details Category Date Date Treatment Clinician Date AVF AVF Disease Active Univers (arteriove (arteriove 9 it y of nous nous 00:00: [place] fistula) fistula) 00 Medica l Branch GASTROPARE GASTROPAR Diagnosis Active 2021-02-10 Memoria HELENA/IBS-D ESISI/IBS- 7-16 21:41:00 l /ANEMIA D/ANEMIA 00:00: Vin Active 00 01/03/2021 [facility] End stage End stage Disease Active [place] renal renal 7-16 Health failure on failure on 00:00: dialysis dialysis 00 Diabetes Diabetes Disease Active [place] mellitus mellitus 7-16 Health with with 00:00: gastropare gastropare 00 sis sis Essential Essential Disease Active [place] hypertensi hypertensi 7-16 He alth on on 00:00: 00 Irritable Irritable Disease Active [place] bowel bowel 7-16 Health syndrome syndrome 00:00: (IBS) (IBS) 00 NEW NEW Diagnosis Active 2020-12-24 Mem oria PATIENT GI PATIENT GI 10-14 10:39:00 l CONSULT CONSULT 00:00: Vin REFRACTORY REFRACTORY 00 GASTRO GASTRO Active 10/14/2020 [facility] Malfunctio Malfunctio Disease Active Overview : Univers n of n of 6-03 Formattin ity of arterioven arterioven 00:00: g of this [place] ous ous 00 note Medical dialysis dialysis might be Bran ch fistula, fistula, different initial initial from the encounter encounter original. Added automatic ally from request for surgery [id number] Candidiasi Candidiasi Disease Active U nivers s of vulva s of vulva 2-18 it y of [place] Screening Screening Disease Active Uni vers for breast for breast 2-18 it y of cancer cancer 00:00: [place] 00 Medical Branch NEW NEW Diagnosis Active 2018-07-26 Mem oria EVALUATION EVALUATION - 09:39:00 l Active 00:00: Vin 07/12/2018 [facility] Pyogenic Pyogenic Disease Active 2017-06 Overview: Un lori granuloma granuloma 0-17 Formattin i ty of of of 00:00: g of this [place] conjunctiv conjunctiv 00 note Me dical a, right a, right might be Bran ch different from the original. Added automatic ally from request for surgery [id number] Right eye Right eye Disease Active Overview: Univers affected affected 9-04 Formattin ity of by by 00:00: g of this [place] proliferat proliferat 00 note Me dical montse montse might be Branch diabetic diabetic different retinopath retinopath from the y with y with original. traction traction Added retinal retinal automatic detachment detachment ally from not not request involving involving for macula, macula, surgery associated associated [id number] with type with type 1 diabetes 1 [...] Added automatic ally from request for surgery [id number] ESRD (end ESRD (end Disease Active Overview: Univers stage stage 6-12 Formattin ity of renal renal 00:00: g of this [place] disease) disease) 00 note Medica l on on might be Branch dialysis dialysis different from the original. Added automatic ally from request for surgery [id number] Diabetes Diabetes Disease Active Metho di mellitus [...] Added automatic ally from request for surgery [id number] Neovascula Neovascula Disease Active U nivers r r 1-18 [place] of glaucoma, [place], [place] left [place] left eye [place] Medica l Branch Increased Increased Disease Active Uni vers intraocula intraocula 1-18 it y of r pressure r pressure [place] Fall Fall Disease Active 2016-06 Univers 0-13 ity of 00:00: [place] [address] Medical Branch Pneumonia Pneumonia Disease Active 2016-06 Uni vers 0-11 ity of 00:00: [place] [address] Medical Branch Diabetes Diabetes Disease Active 2016-06 Overview: Un lori mellitus mellitus 0-05 Formattin ity of 00:00: g of this [place] 00 note Medical might be Branch different from the original. Added automatic ally from request for surgery [id number] Pseudotumo Pseudotumo Disease Active U nivers r cerebri r cerebri 9-25 ity of 00:00: [place] [address] Medical Branch SANJUANA (acute SANJUANA (acute Disease Recur[facility] kidney kidney nce 7-16 [facility] injury) injury) [facility] Center Ulcer of Ulcer of Disease Recur[facility] toe of toe of nce 7-16 [facility] left foot left foot 00:00: [facility] 00 [place] Hyperglyce Hyperglyce Disease Recurre [facility]aryam [...] ve ve 16 [facility] emergency emergency 00:00: [facility] ACUTE RESP ACUTE Diagnosis Active 2016-09-09 Memoria FAILURE RESP 07-23 09:11:00 l FAILURE 00:00: Vin Active 00 07/23/2016 [facility] CONGESTION CONGESTIO Diagnosis Active 2016-07-24 Memoria AMD N AMD 07-23 01:49:00 l DIARRHEA DIARRHEA 00:00: Jake gonzalez Active 00 07/23/2016 [facility] SOB/SWELLI SOB/SWELL Diagnosis Active 2015-062016-06-10 Memoria NG ING Active 08-11 15:48:00 l 06/10/2016 00:00: Jake gonzalez [address] CHF/RENAL CHF/RENAL Diagnosis Active 2015-062016-06-24 [facility] DISEASE DISEASE 08-11 15:35:00 l Active 00:00: Vin 06/10/2016 00 [facility] Congestive Congestive Disease Active 2015-06 U T heart heart 08-11 Health failure failure 00:00: (CHF) (CHF) 00 Obesity Obesity Disease Active 2015-06 Univers (BMI (BMI 0-12 ity of 30-39.9) 30-39.9) 00:00: [place] [address] Medical Branch Hyperosmol Hyperosmol Disease Active 2015-06 U jessicaers ar ar 0-12 ity of non-ketoti non-ketoti [place] in c state in 00 Me dical patient patient Branch with 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 Hyperglyce Hyperglyce Disease Active 2015-06 U jessicaers maryam maryam 0-11 ity of 00:00: [place] [facility] Diabetic Diabetic Disease Active Unive rs ulcer of ulcer of 5-07 ity of both feet [place] associated associated 00 Me dical with type with type Bran ch 2 diabetes 2 diabetes mellitus mellitus SANJUANA (acute SANJUANA (acute Disease Active U nivers kidney kidney 5-07 ity of injury) injury) 00:00: [place] [facility] Depression Depression Disease Active U nivers 5-07 ity of 00:00: [place] [facility] Bipolar 1 Bipolar 1 Disease Active Uni vers disorder disorder 5-07 ity of 00:00: [place] [facility] Suicidal Suicidal Disease Active Unive rs ideation ideation 5-05 ity of 00:00: [place] [facility] Diabetes Diabetes Disease Active Unive [...] cancer in cancer in 00 [facility] female female Branch Family Family Disease Active [...] PAIN, 00:00: Vin SEIZURES 00 Active 06/26/2013 [facility] ABD PAIN ABD PAIN Diagnosis Active 2012-062013-04-19 Memoria Active 0 21:51:00 l 04/14/2013 19:00: Jake gonzalez [address] GASTROPERI GASTROPER Diagnosis Active 2012-09-13 [facility]oria SIS DAISY 2-12 15:17:00 l Active 00:00: Vin 08/02/2012 00 [facility] ABDOMINAL ABDOMINAL Diagnosis Active 2012-03-14 Mem[facility] PAIN PAIN 03-14 16:56:00 l Active 14:00: Vin 03/14/2012 00 [facility] NAUSEA, NAUSEA, Diagnosis Active 2012-03-14 Memoria VOMITING VOMITING 03-14 13:25:00 l Active 08:00: [place] 03/14/2012 00 [facility] N/V N/V Diagnosis Active 2011-12-08 Mem oria INABILITY INABILITY 11-27 11:14:00 l TO TO 00:00: [place] TOLERATE TOLERATE 00 PO PO Active 11/28/2011 [facility] VOMITTING VOMITTING Diagnosis Active 2011-11-28 Memoria Active 11-27 16:28:00 l 11/28/2011 00:00: Jake n [address] VOMITTING, Diagnosis Active 2011-09-18 [facility]oria HIGH BLOOD VOMITTING, 09-17 09:45:00 l SUGAR HIGH BLOOD 00:00: Jake n SUGAR 00 Active 09/18/2011 [facility] Methicilli Problem Active 2021-01-31 M emoria n Methicilli 08-31 22:29:25 l resistant n 00:00: Vin 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
Problem added by Discern Expert. [facility] MRSA MRSA Problem Active 2012-03-16 Memor ia Active 08-31 09:11:30 l 09/01/2011 00:00: Jake n Problem 00 03/16/2012 <sup>1</oliveros p>09/01/11 - Elbow wound
<sup>2< /sup>Probl em added by Discern Expert. [facility] VOMITING, VOMITING, Diagnosis Active 2011-09-01 Memoria BLOOD BLOOD 08-30 03:19:00 l SUGAR SUGAR 00:00: Vin READINGS READINGS 00 HIGH HIGH Active 08/31/2011 [facility] ELBOW ELBOW Diagnosis Active 2011-09-10 Mem oria ABSCESS/HY ABSCESS/HY 08-30 16:26:00 l PERGLYCEMI PERGLYCEMI 00:00: Tyrel canales A A Active 00 08/31/2011 [facility] Hypokalemi Hypokalem Problem Active 2012-03-16 Memoria a ia Active 08-22 09:11:30 l 08/23/2011 00:00: Jake gonzalez Problem 00 03/16/2012 [facility] DKA DKA Diagnosis Active 2011-08-24 Mem oria Active 11:27:00 l 08/19/2011 00:00: Jake gonzalez [address] VOMITING VOMITING Diagnosis Active 2011-08-19 Memoria Active 16:21:00 l 08/19/2011 00:00: Jake gonzalez [address] Final: Final: Problem 2016-08-02 Mem oria Acute Acute 02:46:22 l respirator respirator He rmann y failure, y failure, unspecifie unspecifie d whether d whether with with hypoxia or hypoxia or hypercapni hypercapni a a 08/02/2016 [facility] Hypoglycem Hypoglyce Problem Inactiv 2012-03-16 Memoria ia maryam e 09:11:30 l Inactive Vin Problem 03/16/2012 [facility] Hypoglycem Hypoglyce Problem Inactiv 2013-04-22 Memoria ia maryam e 04:46:33 l (disorder) (disorder) He rmann Inactive Problem 04/22/2013 [facility] Gastropare Gastropar Problem Resolve 2021-01-31 Memoria sis esis d 22:29:25 l (disorder) (disorder) He rmann Resolved Problem 01/31/2021 [facility] Hypertensi Hypertens Problem Resolve 2021-01-31 Memoria ve montse d 22:29:25 l disorder, disorder, Herm naeem systemic systemic arterial arterial (disorder) (disorder) Resolved Problem 01/31/2021 [facility] Psychiatri Psychiatr Problem Resolve 2021-01-31 Memoria c ic d 22:29:25 l behavioral behavioral He rmann disability disability (finding) (finding) Resolved Problem 01/31/2021 [facility] Seizure Seizure Problem Resolve 2021-01-31 Memoria (finding) (finding) d 22:29:25 l Resolved [place] Problem 01/31/2021 [facility] Hypertensi Hypertens Problem Active 2012-03-16 Memoria on ion Active 09:11:30 l Problem [place] 03/16/2012 [facility] Hypomagnes Hypomagne Problem Active 2013-04-22 Memoria emia semia 04:46:33 l Active [place] Problem 04/22/2013 [facility] Nausea and Nausea Problem Active 2012-03-16 Memoria vomiting and 09:11:30 l vomiting [place] Active Problem 03/16/2012 [facility] ENCNTR FOR ENCNTR Diagnosis Active 2020-12-24 Memoria GENERAL FOR 10:39:00 l ADULT GENERAL Vin MEDICAL ADULT EXAM W/ MEDICAL EXAM W/ Active [facility] DMI DMI Diagnosis Active 2011-08-24 Mem oria KETOACD KETOACD 11:27:00 l UNCONTROLD UNCONTROLD He rmann Active [facility] OTHER OTHER Diagnosis Active 2011-09-10 Mem oria GENERAL GENERAL 16:26:00 l SYMPTOMS SYMPTOMS Jake n Active [facility] HEART HEART Diagnosis Active 2016-06-24 Mem oria FAILURE, FAILURE, 15:35:00 l UNSPECIFIE UNSPECIFIE He rmann D D Active [facility] ACUTE ACUTE Diagnosis Active 2016-09-09 Mem oria RESPIRATOR RESPIRATOR 09:11:00 l Y FAILURE, Y FAILURE, He rmann UNSP W UNSP W HYPOXI HYPOXI Active [facility] Nausea and Nausea Problem Resolve 2021-01-31 2021-01-31 Memoria vomiting and d 6-10 22:29:25 22:29:25 l (disorder) vomiting 00:00: Herm naeem (disorder) 00 Resolved 11/29/2011 Problem 01/31/2021 [facility] Hypokalemi Hypokalem Problem Resolve 2021-01-31 2021-01-31 Memoria a ia d 3-04 22:29:25 22:29:25 l (disorder) (disorder) 00:00: He rmann Resolved 00 08/23/2011 Problem 01/31/2021 [facility] Disorder Disorder Problem Resolve 2021-01-31 2021-01-31 Memoria of of d 3-04 22:29:25 22:29:25 l magnesium magnesium 00:00: Herm naeem metabolism metabolism 00 (disorder) (disorder) Resolved 08/23/2011 Problem 01/31/2021 [facility] Hyperglyce Hyperglyc Problem Resolve 2021-01-31 2021-01-31 Memmarin live d 08-19 22:29:25 22:29:25 l (disorder) (disorder) 00:00: He rmann Resolved 00 08/20/2011 Problem 01/31/2021 [facility] Ketoacidos Problem Resolve 2021-01-31 2021-01-31 Memoria is in Ketoacidos d 22:29:25 22:29:25 l diabetes is in 00:00: Vin mellitus diabetes 00 (disorder) mellitus (disorder) Resolved 08/19/2011 Problem 01/31/2021 [facility] DKA DKA Problem Resolve 2013-04-22 2013-04-22 Memoria (diabetic (diabetic d 04:46:33 04:46:33 l ketoacidos ketoacidos 00:00: Tyrel canales es) es) 00 Resolved 08/19/2011 Problem 04/22/2013 [facility] History of Past Illness Condition Condition Condition Status Onset Resolution Last Treating Co mments Source Name Details Category Date Date Treatment Clinician Date Discharge Discharge Problem 2014-06-28 2014-06-28 Blasmarin Diagnosis: Diagnosis: 06-26 16:34:37 16:34:37 l Gastropare Gastropare 06:00: Tyrel canales sis sis 00 06/26/2014 5 [facility] Hyperglyce Hyperglyc Problem Inactiv 2012-03-16 2012-03-16 Memmarin live e 08-19 09:11:30 09:11:30 l Inactive 00:00: Vin 08/20/2011 00 Problem 03/16/2012 [facility] Allergies, Adverse Reactions, Alerts Allergy Allergy [...] Comments) [facility]-03 [facility] Guaifene [...] Other Me thodi zine ty to Comments) 4- reaction( st adverse 00:00: s): [facility] [...] Guaiaco reaction 00 l s to drug Prolex Propensi Active Other (See Meth frantz [...] Comments) , Other - See commentsn kim Guaifene Allergy Active Hives Other [place] sin [...] 00 Medical Branch penicill Drug Active [facility] lisinopr Drug Active [facility] Ambien Drug Active [facility] Prolixin Drug Active [facility] penicill Drug Active [facility] lisinopr Drug Active [facility] Ambien Drug Active [facility] Prolixin Drug Active [facility] Tape Other Active [facility] penicill Drug Active [facility] lisinopr Drug Active [facility] Ambien Drug Active [facility] Prolixin Drug Active [facility] codeine Drug Active [facility] penicill Drug Active [facility]. in [facility] lisinopr Drug Active [facility] Ambien Drug Active [facility] Prolixin Drug Active [facility] codeine Drug Active [facility] penicill Drug Active [facility] lisinopr Drug Active [facility] Ambien Drug Active [facility] Prolixin Drug Active [facility] penicill Drug Active St. in [facility] lisinopr Drug Active [facility] penicill penicill Active Memori a ins ins l Vin Ambien Drug Active [facility] codeine codeine Active Memoria l Vin morphine morphine Active Memori a l Vin lisinopr lisinopr Active Memori a il il l [place] Adhesive Adhesive Active Memori a Tape Tape l [place] Ambien Ambien Active Memoria l [place] Prolex Prolex Active Memoria DM DM l Vin Prolixin Drug Active [facility] penicill Drug Active St. in [facility] [address] il [facility] Ambien Drug Active [facility] Prolixin Drug Active [facility] Social History Social Habit Start Date Stop Date Quantity Comments Source Gender identity [facility] History of tobacco Cigarette Smoker [facility] Exposure to Yes [facility] SARS-CoV-2 (event) Hospit al History of Social 2022-08-25 2022-08-[address] function 00:00:00 00:00:00 Hospital Alcohol intake 2021-06-18 2021-06-18 Ex-drinker [facility] 00:[facility]:00 (finding) Hospital Cigarettes smoked 2021-05-14 2021-05-14 [facility] - Reported Cigarette 2021-05-14 2021-05-14 [facility] pack-years 00:00:00 00:00:00 Hospital Tobacco use and 2021-05-14 2021-05-14 Smokeless tobacco [facility] exposure 00:00:00 00:00:00 non-user Hospital Social History 2020-12-24 2020-12-24 [facility] fatou 15:49:37 15:49:37 Tobacco Comment 2017-11-12 2017-11-12 5 cigarettes per [facility] 00:00:00 00:00:00 day Hospital Sex [facility]igned At [birth year] [facility] 00:[facility] Smoking Status Start Date Stop Date Source Smokes tobacco daily 2021[facility]05[facility]14 [facility] 2020-06-27 00:00:00 2020-06-27 00:00:00 [facility] Medications Ordered Filled Start Stop Current Ordering Indication Dosage Frequency Signature Comments Components Source Medication Medication Date Date Medication? Clinician (SIG) Name Name glipiZIDE Yes 5mg Take 5 mg Met hodi (GLUCOTROL) 1-[address] 5 MG tablet 13:02: daily. Hosp jo-ann 39 l calcium 202-0 Yes 667mg Q.[id number] Take 667 [facility] acetate 1-[id number] (PHOSLO) 13:02: 3D mouth [...] mouth Hospita tablet 39 nightly. l calcium 202-0 Yes 1334mg Q.[id number] Take 1,334 [facility] acetate,domingo 1-18 [id number] mg by s t sphat bind, 13:02: 3D mouth 3 Hos whit (Phoslyra) 39 (three) l 667 mg (169 times a mg day. calcium)/5 mL solution cyproheptad 2021-0 Yes 4mg Q.[id number] Take 4 mg [facility] ine 1-18 [id number] mouth [address] (PERIACTIN) 13:02: 3D (three) Hos whit 4 mg tablet 39 times a l day as needed for allergies. buPROPion 2021-0 Yes 300mg QD Take 300 Met hodi XL 1-[address] (WELLBUTRIN 13:02: mouth Hospi ta XL) 300 MG 39 daily. l 24 hr tablet ascorbic 2021-0 Yes 500mg Q.[id number] Take 500 [facility] acid, 1-[id number] vitamin C, 13:02: 3D mouth 3 Hosp jo-ann (ascorbic 39 (three) l acid with times a sia hips) day. 500 MG tablet clonAZEPAM 2021-0 Yes .5mg Take 0.5 Met hodi (KlonoPIN) 1-[address] 0.5 MG 13:02: mouth as Hospita tablet 39 needed for l anxiety. calcium 2021-0 Yes 1334mg Q.[id number] Take 1,334 Method[facility] acetate,domingo 1-18 [id number] mg by s t sphat bind, 13:02: 3D mouth 3 Hos whit (Phoslyra) 39 (three) l 667 mg (169 times a mg day. calcium)/5 mL solution cyproheptad 2022-0 Yes 4mg Q.[id number] Take 4 mg Methodi ine 1-18 [id number] mouth [address] (PERIACTIN) 13:02: 3D (three) Hos whit 4 mg tablet 39 times a l day as needed for allergies. buPROPion 2021-0 Yes 300mg QD Take 300 Met hodi XL 1-[address] (WELLBUTRIN 13:02: mouth Hospi ta XL) 300 MG 39 daily. l 24 hr tablet ascorbic 2021-0 Yes 500mg Q.[id number] Take 500 [facility] acid, 1-[id number] vitamin C, 13:02: 3D [...] jo-ann 39 l calcium 2021-0 Yes 667mg Q.[id number] Take 667 [facility] acetate 1-[id number] (PHOSLO) 13:02: 3D mouth [...] 39 nightly. l calcium 2021-0 Yes 1334mg Q.[id number] Take 1,334 Method[facility] acetate,domingo 1-18 [id number] mg by s t sphat bind, 13:02: 3D mouth 3 Hos whit (Phoslyra) 39 (three) l 667 mg (169 times a mg day. calcium)/5 mL solution cyproheptad 2021-0 Yes 4mg Q.[id number] Take 4 mg Methodi ine 1-18 [id number] mouth [address] (PERIACTIN) 13:02: 3D (three) Hos whit 4 mg tablet 39 times a l day as needed for allergies. buPROPion 2021-0 Yes 300mg QD Take 300 Met hodi XL 1-[address] (WELLBUTRIN 13:02: mouth Hospi ta XL) 300 MG 39 daily. l 24 hr tablet ascorbic 2-0 Yes 500mg Q.[id number] Take 500 Methodi acid, 1-[id number] vitamin C, 13:02: 3D [...] jo-ann 39 l calcium 2022-0 Yes 667mg Q.[id number] Take 667 [facility] acetate 1-[id number] (PHOSLO) 13:02: 3D mouth [...] 39 nightly. l calcium 2021-0 Yes 1334mg Q.[id number] Take 1,334 Method[facility] acetate,domingo 1-18 [id number] mg by s t sphat bind, 13:02: 3D mouth 3 Hos whit (Phoslyra) 39 (three) l 667 mg (169 times a mg day. calcium)/5 mL solution cyproheptad 0 Yes 4mg Q.79030938 Take 4 mg [facility] ine 1-18 [id number] by mouth [address] (PERIACTIN) 13:02: 3D (three) Hos whit 4 mg tablet 39 times a l day as needed for allergies. buPROPion 2021-0 Yes 300mg QD Take 300 Met hodi XL 1-[address] (WELLBUTRIN 13:02: mouth Hospi ta XL) 300 MG 39 daily. l 24 hr tablet ascorbic 2021-0 Yes 500mg Q.32084664 Take 500 [facility] acid, 1-[id number] vitamin C, 13:02: 3D [...] jo-ann 39 l calcium 2021-0 Yes 667mg Q.97519062 Take 667 [facility] acetate 1-[id number] (PHOSLO) 13:02: 3D mouth [...] 39 nightly. l calcium 2021-0 Yes 1334mg Q.97081056 Take 1,334 Method[facility] acetate,domingo 1-18 [id number] mg by s t sphat bind, 13:02: 3D mouth 3 Hos whit (Phoslyra) 39 (three) l 667 mg (169 times a mg day. calcium)/5 mL solution cyproheptad 0 Yes 4mg Q.20486542 Take 4 mg [facility] ine 1-18 [id number] by mouth [address] (PERIACTIN) 13:02: 3D (three) Hos whit 4 mg tablet 39 times a l day as needed for allergies. buPROPion 0 Yes 300mg QD Take 300 Met hodi XL 1-[address] (WELLBUTRIN 13:02: mouth Hospi ta XL) 300 MG 39 daily. l 24 hr tablet ascorbic 2021-0 Yes 500mg Q.60152261 Take 500 [facility] acid, 1-[address] vitamin C, 13:02: 3D [...] jo-ann 39 l calcium 2-0 Yes 667mg Q.44353402 Take 667 [facility] acetate 1-[id number] (PHOSLO) 13:02: 3D mouth [...] 39 nightly. l calcium 2021-0 Yes 1334mg Q.51661160 Take 1,334 [facility] acetate,domingo 1-18 [id number] mg by s t sphat bind, 13:02: 3D mouth 3 Hos whit (Phoslyra) 39 (three) l 667 mg (169 times a mg day. calcium)/5 mL solution cyproheptad 2021-0 Yes 4mg Q.16622035 Take 4 mg [facility] ine 1-18 [id number] by mouth [address] (PERIACTIN) 13:02: 3D (three) Hos whit 4 mg tablet 39 times a l day as needed for allergies. buPROPion 2021-0 Yes 300mg QD Take 300 Met hodi XL 1-[address] (WELLBUTRIN 13:02: mouth Hospi ta XL) 300 MG 39 daily. l 24 hr tablet ascorbic 2021-0 Yes 500mg Q.59859095 Take 500 [facility] acid, 1-[address] vitamin C, 13:02: 3D [...] jo-ann 39 l calcium 2022-0 Yes 667mg Q.96310159 Take 667 [facility] acetate 1-[id number] (PHOSLO) 13:02: 3D mouth [...] l 50 mg 24 hr tablet divalproex 2-0 Yes 500mg Q.5D Take 500 Me thodi [...] 39 nightly. l calcium 2021-0 Yes 1334mg Q.02665770 Take 1,334 [facility] acetate,domingo 1-18 [id number] mg by s t sphat bind, 13:02: 3D mouth 3 Hos whit (Phoslyra) 39 (three) l 667 mg (169 times a mg day. calcium)/5 mL solution cyproheptad 2021-0 Yes 4mg Q.31918000 Take 4 mg [facility] ine 1-18 [id number] by mouth [address] (PERIACTIN) 13:02: 3D (three) Hos whit 4 mg tablet 39 times a l day as needed for allergies. buPROPion 2021-0 Yes 300mg QD Take 300 Met hodi XL 1-[address] (WELLBUTRIN 13:02: mouth Hospi ta XL) 300 MG 39 daily. l 24 hr tablet ascorbic 2021-0 Yes 500mg Q.07026228 Take 500 [facility] acid, 1-[id number] vitamin C, 13:02: 3D [...] jo-ann 39 l calcium 2021-0 Yes 667mg Q.84066966 Take 667 [facility] acetate 1-[id number] (PHOSLO) 13:02: 3D mouth [...] 39 nightly. l calcium 2021-0 Yes 1334mg Q.10802902 Take 1,334 [facility] acetate,domingo 1-18 [id number] mg by s t sphat bind, 13:02: 3D mouth 3 Hos whit (Phoslyra) 39 (three) l 667 mg (169 times a mg day. calcium)/5 mL solution cyproheptad 2021-0 Yes 4mg Q.19388959 Take 4 mg [facility] ine 1-18 [id number] [address] mouth [address] (PERIACTIN) 13:02: 3D (three) Hos whit 4 mg tablet 39 times a l day as needed for allergies. buPROPion 2021-0 Yes 300mg QD Take 300 Met hodi XL 1-[address] (WELLBUTRIN 13:02: mouth Hospi ta XL) 300 MG 39 daily. l 24 hr tablet ascorbic 2021-0 Yes 500mg Q.90509003 Take 500 [facility] acid, 1-[id number] vitamin C, 13:02: 3D [...] jo-ann 39 l calcium 2021-0 Yes 667mg Q.11215020 Take 667 [facility] acetate 1-[id number] (PHOSLO) 13:02: 3D mouth [...] 39 nightly. l calcium 2021-0 Yes 1334mg Q.85292691 Take 1,334 [facility] acetate,domingo 1-18 [id number] mg by s t sphat bind, 13:02: 3D mouth 3 Hos whit (Phoslyra) 39 (three) l 667 mg (169 times a mg day. calcium)/5 mL solution cyproheptad 2021-0 Yes 4mg Q.36312247 Take 4 mg [facility] ine 1-18 [id number] [address] mouth [address] (PERIACTIN) 13:02: 3D (three) Hos whit 4 mg tablet 39 times a l day as needed for allergies. buPROPion 2021-0 Yes 300mg QD Take 300 Met [facility]odi XL 1-[address] (WELLBUTRIN 13:02: mouth Hospi ta XL) 300 MG 39 daily. l 24 hr tablet ascorbic 2021-0 Yes 500mg Q.27622556 Take 500 [facility] acid, 1-[id number] vitamin C, 13:02: 3D [...] jo-ann 39 l calcium 2021-0 Yes 667mg Q.67659966 Take 667 [facility] acetate 1-[id number] (PHOSLO) 13:02: 3D mouth [...] 39 nightly. l calcium 2021-0 Yes 1334mg Q.98384134 Take 1,334 [facility] acetate,domingo 1-18 [id number] mg by s t sphat bind, 13:02: 3D mouth 3 Hos whit (Phoslyra) 39 (three) l 667 mg (169 times a mg day. calcium)/5 mL solution cyproheptad 2021-0 Yes 4mg Q.80654743 Take 4 mg [facility] ine 1-18 [id number] [address] mouth [address] (PERIACTIN) 13:02: 3D (three) Hos whit 4 mg tablet 39 times a l day as needed for allergies. buPROPion 2021-0 Yes 300mg QD Take 300 Met hodi XL 1-[address] (WELLBUTRIN 13:02: mouth Hospi ta XL) 300 MG 39 daily. l 24 hr tablet ascorbic 2022-0 Yes 500mg Q.56412339 Take 500 [facility] acid, 1-[id number] vitamin C, 13:02: 3D [...] jo-ann 39 l calcium 2022-0 Yes 667mg Q.67318854 Take 667 [facility] acetate 1-[id number] (PHOSLO) 13:02: 3D mouth [...] 39 nightly. l calcium 2021-0 Yes 1334mg Q.10500587 Take 1,334 [facility] acetate,domingo 1-18 [id number] mg by s t sphat bind, 13:02: 3D mouth 3 Hos whit (Phoslyra) 39 (three) l 667 mg (169 times a mg day. calcium)/5 mL solution cyproheptad 0 Yes 4mg Q.59774991 Take 4 mg [facility] ine -18 [id number] [address] mouth [address] (PERIACTIN) 13:02: 3D (three) Hos whit 4 mg tablet 39 times a l day as needed for allergies. buPROPion 2021-0 Yes 300mg QD Take 300 Met [facility]odi XL 1-[address] (WELLBUTRIN 13:02: mouth Hospi ta XL) 300 MG 39 daily. l 24 hr tablet ascorbic 2021-0 Yes 500mg Q.18566456 Take 500 [facility] acid, 1-[id number] vitamin C, 13:02: 3D [...] jo-ann 39 l calcium 2021-0 Yes 667mg Q.13671445 Take 667 [facility] acetate 1-[id number] (PHOSLO) 13:02: 3D mouth [...] 39 nightly. l calcium 2021-0 Yes 1334mg Q.28511846 Take 1,334 [facility] acetate,domingo 1-18 [id number] mg by s t sphat bind, 13:02: 3D mouth 3 Hos whit (Phoslyra) 39 (three) l 667 mg (169 times a mg day. calcium)/5 mL solution cyproheptad 2021-0 Yes 4mg Q.65107191 Take 4 mg [facility] ine 1-18 [id number] by mouth [address] (PERIACTIN) 13:02: 3D (three) Hos whit 4 mg tablet 39 times a l day as needed for allergies. buPROPion 2021-0 Yes 300mg QD Take 300 Met hodi XL 1-[address] (WELLBUTRIN 13:02: mouth Hospi ta XL) 300 MG 39 daily. l 24 hr tablet ascorbic 2021-0 Yes 500mg Q.52841608 Take 500 [facility] acid, 1-[id number] vitamin C, 13:02: 3D [...] jo-ann 39 l calcium 2022-0 Yes 667mg Q.27435392 Take 667 [facility] acetate 1-[id number] (PHOSLO) 13:02: 3D mouth [...] daily. l D3) 5,000 unit tablet metoprolol 2-0 Yes 50mg QD Take 50 mg [...] 39 nightly. l calcium 2021-0 Yes 1334mg Q.09523331 Take 1,334 [facility] acetate,domingo 1-18 [id number] mg by s t sphat bind, 13:02: 3D mouth 3 Hos whit (Phoslyra) 39 (three) l 667 mg (169 times a mg day. calcium)/5 mL solution cyproheptad 2021-0 Yes 4mg Q.05394559 Take 4 mg [facility] ine 1-18 [id number] [address] mouth [address] (PERIACTIN) 13:02: 3D (three) Hos whit 4 mg tablet 39 times a l day as needed for allergies. buPROPion 2021-0 Yes 300mg QD Take 300 Met hodi XL 1-[address] (WELLBUTRIN 13:02: mouth Hospi ta XL) 300 MG 39 daily. l 24 hr tablet ascorbic 2021-0 Yes 500mg Q.01035751 Take 500 [facility] acid, 1-[id number] vitamin C, 13:02: 3D [...] jo-ann 39 l calcium 2021-0 Yes 667mg Q.89348290 Take 667 [facility] acetate 1-[id number] (PHOSLO) 13:02: 3D mouth [...] 39 nightly. l calcium 2021-0 Yes 1334mg Q.73036478 Take 1,334 [facility] acetate,domingo 1-18 [id number] mg by s t sphat bind, 13:02: 3D mouth 3 Hos whit (Phoslyra) 39 (three) l 667 mg (169 times a mg day. calcium)/5 mL solution cyproheptad 2021-0 Yes 4mg Q.[id number] Take 4 mg [facility] ine 1-18 [id number] [address] mouth [address] (PERIACTIN) 13:02: 3D (three) Hos whit 4 mg tablet 39 times a l day as needed for allergies. buPROPion 2021-0 Yes 300mg QD Take 300 Met hodi XL 1-[address] (WELLBUTRIN 13:02: mouth Hospi ta XL) 300 MG 39 daily. l 24 hr tablet ascorbic 2021-0 Yes 500mg Q.78073430 Take 500 [facility] acid, 1-[id number] vitamin C, 13:02: 3D mouth 3 Hosp j-oann (ascorbic 39 (three) l acid with times [...] jo-ann 39 l calcium 2021-0 Yes 667mg Q.26304193 Take 667 [facility] acetate 1-[id number] (PHOSLO) 13:02: 3D mouth [...] 39 nightly. l calcium 2-0 Yes 1334mg Q.47440268 Take 1,334 [facility] acetate,domingo 1-18 [id number] mg by s t sphat bind, 13:02: 3D mouth 3 Hos whit (Phoslyra) 39 (three) l 667 mg (169 times a mg day. calcium)/5 mL solution cyproheptad 2022-0 Yes 4mg Q.55373522 Take 4 mg [facility] ine 1-18 [id number] [address] mouth [address] (PERIACTIN) 13:02: 3D (three) Hos whit 4 mg tablet 39 times a l day as needed for allergies. buPROPion 202-0 Yes 300mg QD Take 300 Met hodi XL 1-[address] (WELLBUTRIN 13:02: mouth Hospi ta XL) 300 MG 39 daily. l 24 hr tablet ascorbic 2021-0 Yes 500mg Q.27168087 Take 500 [facility] acid, 1-[id number] vitamin C, 13:02: 3D [...] jo-ann 39 l calcium 2-0 Yes 667mg Q.84059166 Take 667 [facility] acetate 1-[id number] (PHOSLO) 13:02: 3D mouth [...] 39 nightly. l calcium 2-0 Yes 1334mg Q.21059618 Take 1,334 [facility] acetate,domingo 1-18 [id number] mg by s t sphat bind, 13:02: 3D mouth 3 Hos whit (Phoslyra) 39 (three) l 667 mg (169 times a mg day. calcium)/5 mL solution cyproheptad 2021-0 Yes 4mg Q.41371721 Take 4 mg [facility] ine 1-18 [id number] [address] mouth [address] (PERIACTIN) 13:02: 3D (three) Hos whit 4 mg tablet 39 times a l day as needed for allergies. buPROPion 2021-0 Yes 300mg QD Take 300 Met hodi XL 1-[address] (WELLBUTRIN 13:02: mouth Hospi ta XL) 300 MG 39 daily. l 24 hr tablet ascorbic 2021-0 Yes 500mg Q.89306401 Take 500 [facility] acid, 1-[id number] vitamin C, 13:02: 3D [...] jo-ann 39 l calcium 2021-0 Yes 667mg Q.74105948 Take 667 [facility] acetate 1-[id number] (PHOSLO) 13:02: 3D mouth [...] 39 nightly. l calcium 2021-0 Yes 1334mg Q.[id number] Take 1,334 [facility] acetate,domingo 1-18 [id number] mg by s t sphat bind, 13:02: 3D mouth 3 Hos whit (Phoslyra) 39 (three) l 667 mg (169 times a mg day. calcium)/5 mL solution cyproheptad 2-0 Yes 4mg Q.13858468 Take 4 mg [facility] ine 1-18 [id number] [address] mouth [address] (PERIACTIN) 13:02: 3D (three) Hos whit 4 mg tablet 39 times a l day as needed for allergies. buPROPion 2021-0 Yes 300mg QD Take 300 Met hodi XL 1-[address] (WELLBUTRIN 13:02: mouth Hospi ta XL) 300 MG 39 daily. l 24 hr tablet ascorbic 2022-0 Yes 500mg Q.[id number] Take 500 [facility] acid, 1-[id number] vitamin C, 13:02: 3D [...] jo-ann 39 l calcium 2021-0 Yes 667mg Q.[id number] Take 667 [facility] acetate 1-[id number] (PHOSLO) 13:02: 3D mouth [...] 39 nightly. l calcium 2021-0 Yes 1334mg Q.45718921 Take 1,334 [facility] acetate,domingo 1-18 [id number] mg by s t sphat bind, 13:02: 3D mouth 3 Hos whit (Phoslyra) 39 (three) l 667 mg (169 times a mg day. calcium)/5 mL solution cyproheptad 2021-0 Yes 4mg Q.57637501 Take 4 mg [facility] ine 1-18 [id number] [address] mouth [address] (PERIACTIN) 13:02: 3D (three) Hos whit 4 mg tablet 39 times a l day as needed for allergies. buPROPion 2021-0 Yes 300mg QD Take 300 Met hodi XL 1-[address] (WELLBUTRIN 13:02: mouth Hospi ta XL) 300 MG 39 daily. l 24 hr tablet ascorbic 2021-0 Yes 500mg Q.57951836 Take 500 [facility] acid, 1-[id number] vitamin C, 13:02: 3D [...] jo-ann 39 l calcium 2021-0 Yes 667mg Q.55590764 Take 667 [facility] acetate 1-[id number] (PHOSLO) 13:02: 3D mouth [...] 39 nightly. l calcium 2021-0 Yes 1334mg Q.[id number] Take 1,334 [facility] acetate,domingo 1-18 [id number] mg by s t sphat bind, 13:02: 3D mouth 3 Hos whit (Phoslyra) 39 (three) l 667 mg (169 times a mg day. calcium)/5 mL solution cyproheptad 2021-0 Yes 4mg Q.32883453 Take 4 mg [facility] ine 1-18 [id number] [address] mouth [address] (PERIACTIN) 13:02: 3D (three) Hos whit 4 mg tablet 39 times a l day as needed for allergies. buPROPion 2021-0 Yes 300mg QD Take 300 Met hodi XL 1-[address] (WELLBUTRIN 13:02: mouth Hospi ta XL) 300 MG 39 daily. l 24 hr tablet ascorbic 2021-0 Yes 500mg Q.96181192 Take 500 [facility] acid, 1-[id number] vitamin C, 13:02: 3D [...] jo-ann 39 l calcium 2022-0 Yes 667mg Q.[id number] Take 667 [facility] acetate 1-[id number] (PHOSLO) 13:02: 3D mouth [...] 39 nightly. l calcium 2021-0 Yes 1334mg Q.25408553 Take 1,334 [facility] acetate,domingo 1-18 [id number] mg by s t sphat bind, 13:02: 3D mouth 3 Hos whit (Phoslyra) 39 (three) l 667 mg (169 times a mg day. calcium)/5 mL solution cyproheptad 2021-0 Yes 4mg Q.89619071 Take 4 mg [facility] ine 1-18 [id number] [address] mouth [address] (PERIACTIN) 13:02: 3D (three) Hos whit 4 mg tablet 39 times a l day as needed for allergies. buPROPion 2021-0 Yes 300mg QD Take 300 Met hodi XL 1-[address] (WELLBUTRIN 13:02: mouth Hospi ta XL) 300 MG 39 daily. l 24 hr tablet ascorbic 2021-0 Yes 500mg Q.89910482 Take 500 [facility] acid, 1-[id number] vitamin C, 13:02: 3D [...] jo-ann 39 l calcium 2021-0 Yes 667mg Q.[id number] Take 667 [facility] acetate 1-[id number] (PHOSLO) 13:02: 3D mouth [...] 39 nightly. l calcium 2021-0 Yes 1334mg Q.57653143 Take 1,334 [facility] acetate,domingo 1-18 [id number] mg by s t sphat bind, 13:02: 3D mouth 3 Hos whit (Phoslyra) 39 (three) l 667 mg (169 times a mg day. calcium)/5 mL solution cyproheptad 2021-0 Yes 4mg Q.19524954 Take 4 mg [facility] ine 1-18 [id number] [address] mouth [address] (PERIACTIN) 13:02: 3D (three) Hos whit 4 mg tablet 39 times a l day as needed for allergies. buPROPion 2021-0 Yes 300mg QD Take 300 Met hodi XL 1-[address] (WELLBUTRIN 13:02: mouth Hospi ta XL) 300 MG 39 daily. l 24 hr tablet ascorbic 2021-0 Yes 500mg Q.64308978 Take 500 [facility] acid, 1-[id number] vitamin C, 13:02: 3D [...] jo-ann 39 l calcium 2021-0 Yes 667mg Q.43385871 Take 667 [facility] acetate 1-[id number] (PHOSLO) 13:02: 3D mouth [...] 39 nightly. l calcium 2022-0 Yes 1334mg Q.49493610 Take 1,334 [facility] acetate,domingo 1-18 [id number] mg by s t sphat bind, 13:02: 3D mouth 3 Hos whit (Phoslyra) 39 (three) l 667 mg (169 times a mg day. calcium)/5 mL solution cyproheptad 2021-0 Yes 4mg Q.15581358 Take 4 mg [facility] ine 1-18 [id number] [address] mouth [address] (PERIACTIN) 13:02: 3D (three) Hos whit 4 mg tablet 39 times a l day as needed for allergies. buPROPion 2021-0 Yes 300mg QD Take 300 Met hodi XL 1-[address] (WELLBUTRIN 13:02: mouth Hospi ta XL) 300 MG 39 daily. l 24 hr tablet ascorbic 2021-0 Yes 500mg Q.82182376 Take 500 [facility] acid, 1-[id number] vitamin C, 13:02: 3D [...] jo-ann 39 l calcium 2021-0 Yes 667mg Q.23457833 Take 667 [facility] acetate 1-[id number] (PHOSLO) 13:02: 3D mouth [...] 39 daily. l (DIALYVITE 800 ORAL) cyanocobala 0 Yes 1000ug Q.5D Take 1,000 Methodi min [...] mg at night vancomycin 2020-06- No 750mg Q.30088744 Infuse 750 [facility] 750 mg in 07-08 [id number] mg into a [address] sodium 00:00: 05:59 3W venous [facility] chloride 00 :00 catheter 3 l 0.9% 250 mL (three) IVPB times a week for 19 days. Administer 3 times weekly in dialysis vancomycin 2020-06- No 750mg Q.70162956 Infuse 750 [facility] 750 mg in 07-08 [id number] mg into a [facility] sodium 00:00: 05:59 3W venous [facility] chloride 00 :00 catheter 3 l 0.9% 250 mL (three) IVPB times a week for 19 days. Administer 3 times weekly in dialysis vancomycin 2020-06- No 750mg Q.68936389 Infuse 750 [facility] 750 mg in 07-08 [id number] mg into a [address] sodium 00:00: 05:59 3[facility] venous [facility] chloride 00 :00 catheter 3 l 0.9% 250 mL (three) IVPB times a week for 19 days. Administer 3 times weekly in dialysis vancomycin 2020-06- No 750mg Q.66289918 Infuse 750 [facility] 750 mg in 07-08 [id number] mg into a [address] sodium 00:00: 05:59 3[facility] venous [facility] chloride 00 :00 catheter 3 l 0.9% 250 mL (three) IVPB times a week for 19 days. Administer 3 times weekly in dialysis vancomycin 2020-06- No 750mg Q.72421502 Infuse 750 [facility] 750 mg in 07-08 [id number] mg into a [address] sodium 00:00: 05:59 3[facility] venous [facility] chloride 00 :00 catheter 3 l 0.9% 250 mL (three) IVPB times a week for 19 days. Administer 3 times weekly in dialysis vancomycin 2020-06- No 750mg Q.25449304 Infuse 750 [facility] 750 mg in 07-08 [id number] mg into a [address] sodium 00:00: 05:59 3[facility] venous [facility] chloride 00 :00 catheter 3 l 0.9% 250 mL (three) IVPB times a week for 19 days. Administer 3 times weekly in dialysis vancomycin 2020-06- No 750mg Q.39823945 Infuse 750 [facility] 750 mg in 07-08 [id number] mg into a [facility] sodium 00:00: 05:59 3W venous [facility] chloride 00 :00 catheter 3 l 0.9% 250 mL (three) IVPB times a week for 19 days. Administer 3 times weekly in dialysis vancomycin 2020-06- No 750mg Q.85922620 Infuse 750 [facility] 750 mg in 07-[id number] mg into a [address] sodium 00:00: 05:59 3[facility] venous [facility] chloride 00 :00 catheter 3 l 0.9% 250 mL (three) IVPB times a week for 19 days. Administer 3 times weekly in dialysis vancomycin 2020-06- No 750mg Q.75291145 Infuse 750 [facility] 750 mg in 07-[id number] mg into a [address] sodium 00:00: 05:59 3W venous [facility] chloride 00 :00 catheter 3 l 0.9% 250 mL (three) IVPB times a week for 19 days. Administer 3 times weekly in dialysis vancomycin 2020-06- No 750mg Q.27255141 Infuse 750 [facility] 750 mg in 07-08 [id number] mg into a [facility] sodium 00:00: 05:59 3[facility] venous [facility] chloride 00 :00 catheter 3 l 0.9% 250 mL (three) IVPB times a week for 19 days. Administer 3 times weekly in dialysis vancomycin 2020-06- No 750mg Q.21967778 Infuse 750 [facility] 750 mg in 07-08 [id number] mg into a [address] sodium 00:00: 05:59 3W venous [facility] chloride 00 :00 catheter 3 l 0.9% 250 mL (three) IVPB times a week for 19 days. Administer 3 times weekly in dialysis vancomycin 2020-06- No 750mg Q.10066042 Infuse 750 [facility] 750 mg in 07-08 [id number] mg into a [facility] sodium 00:00: 05:59 3W venous [facility] chloride 00 :00 catheter 3 l 0.9% 250 mL (three) IVPB times a week for 19 days. Administer 3 times weekly in dialysis vancomycin 2020-06- No 750mg Q.01149935 Infuse 750 [facility] 750 mg in 07-[id number] mg into a [address] sodium 00:00: 05:59 3W venous [facility] chloride 00 :00 catheter 3 l 0.9% 250 mL (three) IVPB times a week for 19 days. Administer 3 times weekly in dialysis HYDROcodone 2020-06- No 51667 1{tbl} Q6H Take 1 [facility] -acetaminop 06-[address] [facility] ([facility]) 00:00: 05:59 mouth Hosp jo-ann 5-325 mg 00 :00 every 6 l per tablet (six) hours as needed for severe pain for up to 5 days .acute pain. Max Daily Amount: 4 tablets HYDROcodone 2020-06 1{tbl} Q6H Take 1 [facility] -acetaminop 2-29 -[address] [facility] ([facility]) 00:00: 05:59 mouth Hosp jo-ann 5-325 mg 00 :00 every 6 l per tablet (six) hours as needed for severe pain for up to 5 days .acute pain. Max Daily Amount: 4 tablets HYDROcodone 2020-06 1{tbl} Q6H Take 1 [facility] -acetaminop 2-29 -[address] [facility] ([facility]) 00:00: 05:59 mouth Hosp jo-ann 5-325 mg 00 :00 every 6 l per tablet (six) hours as needed for severe pain for up to 5 days .acute pain. Max Daily Amount: 4 tablets HYDROcodone 2020-06 1{tbl} Q6H Take 1 [facility] -acetaminop 2-29 -[address] [facility] ([facility]) 00:00: 05:59 mouth Hosp jo-ann 5-325 mg 00 :00 every 6 l per tablet (six) hours as needed for severe pain for up to 5 days .acute pain. Max Daily Amount: 4 tablets HYDROcodone 2020-06 1{tbl} Q6H Take 1 [facility] -acetaminop 2-29 -[address] [facility] ([facility]) 00:00: 05:59 mouth Hosp jo-ann 5-325 mg 00 :00 every 6 l per tablet (six) hours as needed for severe pain for up to 5 days .acute pain. Max Daily Amount: 4 tablets HYDROcodone 2020-06 1{tbl} Q6H Take 1 [facility] -acetaminop 2-29 -[address] [facility] ([facility]) 00:00: 05:59 mouth Hosp jo-ann 5-325 mg 00 :00 every 6 l per tablet (six) hours as needed for severe pain for up to 5 days .acute pain. Max Daily Amount: 4 tablets HYDROcodone 2020-06 1{tbl} Q6H Take 1 [facility] -acetaminop 2-29 -[address] [facility] ([facility]) 00:00: 05:59 mouth Hosp jo-ann 5-325 mg 00 :00 every 6 l per tablet (six) hours as needed for severe pain for up to 5 days .acute pain. Max Daily Amount: 4 tablets HYDROcodone 2020-06 1{tbl} Q6H Take 1 [facility] -acetaminop 2-29 -[address] [facility] ([facility]) 00:00: 05:59 mouth Hosp jo-[facility] 5-325 mg 00 :00 every 6 l per tablet (six) hours as needed for severe pain for up to 5 days .acute pain. Max Daily Amount: 4 tablets HYDROcodone 2020-06 1{tbl} Q6H Take 1 [facility] -acetaminop 2-29 -[address] [facility] ([facility]) 00:00: 05:59 mouth Hosp jo-[facility] 5-325 mg 00 :00 every 6 l per tablet (six) hours as needed for severe pain for up to 5 days .acute pain. Max Daily Amount: 4 tablets HYDROcodone 2020-06 1{tbl} Q6H Take 1 [facility] -acetaminop 2-29 -[address] [facility] ([facility]) 00:00: 05:59 mouth Hosp jo-[facility] 5-325 mg 00 :00 every 6 l per tablet (six) hours as needed for severe pain for up to 5 days .acute pain. Max Daily Amount: 4 tablets HYDROcodone 2020-06 1{tbl} Q6H Take 1 [facility] -acetaminop 2-29 -[address] [facility] ([facility]) 00:00: 05:59 mouth Hosp jo-[facility] 5-325 mg 00 :00 every 6 l per tablet (six) hours as needed for severe pain for up to 5 days .acute pain. Max Daily Amount: 4 tablets HYDROcodone 2020-06 1{tbl} Q6H Take 1 [facility] -acetaminop 2-29 -[address] [facility] (Runner) 00:00: 05:59 mouth Hosp jo-ann 5-325 mg [...] 2-05 12-13 tablets by s t hen (Runner) 00:00: 05:59 mouth Hosp jo-[facility] 5-325 mg 00 :00 every 8 l per tablet (eight) hours as needed for severe pain for up to 7 days .acute pain. Max Daily Amount: 6 tablets HYDROcodone 2020-06 2{tbl} Q8H Take 2 [facility] -acetaminop 2-05 12-13 tablets by s t hen (Runner) 00:00: 05:59 mouth Hosp jo-[facility] 5-325 mg 00 :00 every 8 l per tablet (eight) hours as needed for severe pain for up to 7 days .acute pain. Max Daily Amount: 6 tablets HYDROcodone 2020-06 2{tbl} Q8H Take 2 [facility] -acetaminop 2-05 12-13 tablets by s t hen (Runner) 00:00: 05:59 mouth Hosp jo-[facility] 5-325 mg 00 :00 every 8 l per tablet (eight) hours as needed for severe pain for up to 7 days .acute pain. Max Daily Amount: 6 tablets HYDROcodone 2020-0628 2{tbl} Q8H Take 2 [facility] -acetaminop 2-05 12-13 tablets by s t hen (Runner) 00:00: 05:59 mouth Hosp jo-[facility] 5-325 mg 00 :00 every 8 l per tablet (eight) hours as needed for severe pain for up to 7 days .acute pain. Max Daily Amount: 6 tablets HYDROcodone 2020-06 2{tbl} Q8H Take 2 [facility] -acetaminop 2-05 12-13 tablets by s t hen (Runner) 00:00: 05:59 mouth Hosp jo-[facility] 5-325 mg 00 :00 every 8 l per tablet (eight) hours as needed for severe pain for up to 7 days .acute pain. Max Daily Amount: 6 tablets HYDROcodone 2020-06 2{tbl} Q8H Take 2 [facility] -acetaminop 2-05 12-13 tablets by s t hen (Runner) 00:00: 05:59 mouth Hosp jo-[facility] 5-325 mg 00 :00 every 8 l per tablet (eight) hours as needed for severe pain for up to 7 days .acute pain. Max Daily Amount: 6 tablets HYDROcodone 2020-0628 2{tbl} Q8H Take 2 [facility] -acetaminop 2-05 12-13 tablets by s t hen (Runner) 00:00: 05:59 mouth [facility]osp [facility] 5-325 mg 00 :00 every 8 l per tablet (eight) hours as needed for severe pain for up to 7 days .acute pain. Max Daily Amount: 6 tablets HYDROcodone 2020-0628 2{tbl} Q8H Take 2 [facility] -acetaminop 2-05 12-13 tablets by s t hen (Runner) 00:00: 05:59 mouth Hosp [facility] 5-325 mg 00 :00 every 8 l per tablet (eight) hours as needed for severe pain for up to 7 days .acute pain. Max Daily Amount: 6 tablets HYDROcodone 2020-06 2{tbl} Q8H Take 2 Methodi -acetaminop 2-05 12-13 tablets by s t hen ([facility]) 00:00: 05:59 [facility] 5-325 mg 00 :00 every 8 l per tablet (eight) hours as needed for severe pain for up to 7 days .acute pain. Max Daily Amount: 6 tablets HYDROcodone 2020-0628 2{tbl} Q8H Take 2 Methodi -acetaminop 2-05 12-13 tablets by s t hen ([facility]) 00:00: 05:59 [facility] 5-325 mg [...] Daily Amount: 6 tablets predniSONE 2020-06- No [id number] Take M ethodi (DELTASONE) 07-18 12-05 Prednisone s t 50 mg 00:00: 00:00 50mg 13 [facility] 00 :00 hours, 7 l hours, and 1 hour prior to scheduled procedure on 05/19/2021 for contrast allergy prophylaxi s. predniSONE 2020-06- No [id number] Take M ethodi (DELTASONE) 07-18 12-05 Prednisone s t 50 mg 00:00: 00:00 50mg 13 [facility] tablet 00 :00 hours, 7 l hours, and 1 hour prior to scheduled procedure on 05/19/2021 for contrast allergy prophylaxi s. predniSONE 2020-06- No [id number] Take M ethodi (DELTASONE) 07-18 12-05 Prednisone s t 50 mg 00:00: 00:00 50mg 13 [facility] tablet 00 :00 hours, 7 l hours, and 1 hour prior to scheduled procedure on 05/19/2021 for contrast allergy prophylaxi s. predniSONE 2020-06- No [id number] Take M ethodi (DELTASONE) 07-18 12-05 Prednisone s t 50 mg 00:00: 00:00 50mg 13 [facility] tablet 00 :00 hours, 7 l hours, and 1 hour prior to scheduled procedure on 05/19/2021 for contrast allergy prophylaxi s. predniSONE 2020-06- No [id number] Take M ethodi (DELTASONE) 07-18 12-05 Prednisone s t 50 mg 00:00: 00:00 50mg 13 [facility] tablet 00 :00 hours, 7 l hours, and 1 hour prior to scheduled procedure on 05/19/2021 for contrast allergy prophylaxi s. predniSONE 2020-06- No [id number] Take M ethodi (DELTASONE) 07-18 12-05 Prednisone s t 50 mg 00:00: 00:00 50mg 13 [facility] tablet 00 :00 hours, 7 l hours, and 1 hour prior to scheduled procedure on 05/19/2021 for contrast allergy prophylaxi s. predniSONE 2020-06- No [id number] Take M ethodi (DELTASONE) 07-18 12-05 Prednisone s t 50 mg 00:00: 00:00 50mg 13 [facility] tablet 00 :00 hours, 7 l hours, and 1 hour prior to scheduled procedure on 05/19/2021 for contrast allergy prophylaxi s. predniSONE 2020-06- No [id number] Take M ethodi (DELTASONE) 07-18 12-05 Prednisone s t 50 mg 00:00: 00:00 50mg 13 [facility] tablet 00 :00 hours, 7 l hours, and 1 hour prior to scheduled procedure on 05/19/2021 for contrast allergy prophylaxi s. predniSONE 2020-06- No [id number] Take M ethodi (DELTASONE) 07-18 12-05 Prednisone s t 50 mg 00:00: 00:00 50mg 13 [facility] tablet 00 :00 hours, 7 l hours, and 1 hour prior to scheduled procedure on 05/19/2021 for contrast allergy prophylaxi s. predniSONE 2020-06- No [id number] Take M ethodi (DELTASONE) 07-18 12-05 Prednisone [...] by mouth ity of (PROTONIX) 11:08: daily. [place] 20 mg EC Medical tablet Branch Cholecalcif [...] tablet by ity of tablet 11:08: mouth [place] daily. Medical Branch divalproex 2020-06 Yes 500mg Take 500 Un l[facility] ER 0-01 mg by ity of (DEPAKOTE 23:08: mouth 2 [place] ER) 500 mg 36 (two) Medical 24 hr times Branch tablet daily. gabapentin 2020-06 Yes 100mg Take 100 Un [facility] 100 mg 0-01 mg by ity of capsule 23:08: mouth 2 [place] 36 (two) Medical times Branch daily. vitamin C 2020-06 Yes 2000mg Take 2,000 [facility] with sia 0-01 mg by ity of hips 23:08: mouth 2 [place] (VITAMIN C) 36 (two) Medical 1,000 mg times Branch tablet daily. metoprolol 2020-06 Yes 50mg Take 50 mg U nivers tartrate 50 0-01 by mouth ity of mg tablet 23:08: daily. [address] Branch folic 2020-06 Yes 800mg Take 800 Univers acid/vit B 0-01 mg by ity of complex and 23:08: mouth [place] C 36 daily. Medical (DIALYVITE Branch 800 ORAL) linagliptin 2020-06 Yes Take by Uni vers (TRADJENTA) 0-01 mouth. ity of 5 mg tablet 23:08: [address] Branch spironolact 2020-06 Yes 50mg Take 50 mg Univers one 50 mg 0-01 by mouth ity of tablet 23:08: daily. [address] Branch pravastatin 2020-06 Yes 40mg Take 40 mg Univers 40 mg 0-01 by mouth ity of tablet 23:08: daily. [address] Branch mv-mn/iron/ 2020-06 Yes 1{capsu Take 1 U nivers folic 0-01 le} capsule by ity of acid/herb 23:08: mouth [place] 190 36 daily. Medical (VITAMIN D3 Branch COMPLETE ORAL) SERTraline 2020-06 Yes 50mg Take 50 mg U nivers 50 mg 0-01 by mouth ity of tablet 23:08: daily. [address] Branch calcium 2020-06 Yes 667mg Take 667 Unive rs acetate 667 0-01 mg by ity of mg capsule 23:08: mouth [place] (three) Medical times Branch daily with meals. cetirizine 2020-06 Yes 1{tbl} Take 1 Uni vers HCl/pseudoe 0-01 tablet by ity of phedrine 23:08: mouth [place] (ZYRTEC-D 36 daily. Medical ORAL) Branch furosemide 2020-06 Yes 40mg Take 40 mg U nivers 40 mg 0-01 by mouth 2 ity of tablet 23:08: (two) [place] [address] times Medical daily. Branch divalproex 2020-06 Yes 500mg Take 500 Un lori ER 0-01 mg by ity of (DEPAKOTE 23:08: mouth 2 [place] ER) 500 mg 36 (two) Medical 24 hr times Branch tablet daily. gabapentin 2020-06 Yes 100mg Take 100 Un l[place] 100 mg 0-01 mg by ity of capsule 23:08: mouth 2 [place] [address] (two) Medical times Branch daily. vitamin C 2020-06 Yes 2000mg Take 2,000 [facility] with sia 0-01 mg by ity of hips 23:08: mouth 2 [place] (VITAMIN C) (two) Medical 1,000 mg times Branch tablet daily. metoprolol 2020-06 Yes 50mg Take 50 mg U nivers tartrate 50 0-01 by mouth ity of mg tablet 23:08: daily. [place] [address] Medical Branch folic 2020-06 Yes 800mg Take 800 Univers acid/vit B 0-01 mg by ity of complex and 23:08: mouth [place] C 36 daily. Medical (DIALYVITE Branch 800 ORAL) linagliptin 2020-06 Yes Take by Uni vers (TRADJENTA) 0-01 mouth. ity of 5 mg tablet 23:08: [address] Branch spironolact 2020-06 Yes 50mg Take 50 mg Univers one 50 mg 0-01 by mouth ity of tablet 23:08: daily. [address] Branch pravastatin 2020-06 Yes 40mg Take 40 mg Univers 40 mg 0-01 by mouth ity of tablet 23:08: daily. [address] Branch mv-mn/iron/ 2020-06 Yes 1{capsu Take 1 U nivers folic 0-01 le} capsule by ity of acid/herb 23:08: mouth [place] 190 36 daily. Medical (VITAMIN D3 Branch COMPLETE ORAL) SERTraline 2020-06 Yes 50mg Take 50 mg U nivers 50 mg 0-01 by mouth ity of tablet 23:08: daily. [place] [address] Medical Branch calcium 2020-06 Yes 667mg Take [...] janice 8-11 (Same as: l 01:36: Mylicon) [place] Simethicone No Notes: Mendoza janice 8-11 (Same as: l 01:36: Mylicon) [place] epoetin 2020-0 Yes 2,000 unit Mendoza janice giovanny-epbx 8-10 = 1 mL, l 1999 19:37: IV, [place] units/mL 00 Q--W-, preservativ to be e-free given at injectable post solution Dialysis sessions, 0 Refill(s) epoetin 0 Yes 2,000 unit Mendoza janice giovanny-epbx 8-10 = 1 mL, l 1999 19:37: IV, [place] units/mL 00 Q--W-, preservativ to be e-free given at injectable post solution Dialysis sessions, 0 Refill(s) epoetin 0 Yes 2,000 unit Mendo[place] janice giovanny-epbx 8-10 = 1 mL, 1999 19:37: IV, Vin units/mL 00 Q--, preservativ to be e-free given at injectable post solution Dialysis sessions, 0 Refill(s) epoetin 0 Yes 2,000 unit Mendoza janice giovanny-epbx 8-10 = 1 mL, l 1999 19:37: IV, [place] units/mL 00 Q---, preservativ to be e-free given at injectable post solution Dialysis sessions, 0 Refill(s) epoetin 2020-0 Yes 2,000 unit Mendoza janice giovanny-epbx 8-10 = 1 mL, l 1999 19:37: IV, Vin units/mL 00 Q--, preservativ to be e-free [...] PO, l tablet 19:33: Daily, # [place] 30 tab, 2 Refill(s) busPIRone 2020-0 Yes 7.5 mg = 1 Me moria 7.5 mg oral 8-10 tab, PO, l tablet 19:33: BID, 0 Vin 00 Refill(s) buPROPion 2020-0 Yes 75 mg = 1 Mem oria 75 mg oral 8-10 tab, PO, l tablet 19:33: Daily, # [place] 00 14 tab, 0 Refill(s) amLODIPine 2020-0 [...] Vin 00 14 tab, 0 Refill(s) amLODIPine 2020-0 Yes 10 mg = 1 Me moria 10 mg oral 8-10 tab, PO, l tablet 19:33: Daily, # [place] 00 30 tab, 2 Refill(s) busPIRone 2020-0 Yes 7.5 mg = 1 Me moria 7.5 mg oral 8-10 tab, PO, l tablet 19:33: BID, 0 Vin 00 Refill(s) buPROPion Yes 75 mg = 1 Mem oria 75 mg oral 8-10 tab, PO, l tablet 19:33: Daily, # [place] 00 14 tab, 0 Refill(s) amLODIPine Yes 10 mg = 1 Me moria 10 mg oral 8-10 tab, PO, l tablet 19:33: Daily, # [place] 00 30 tab, 2 Refill(s) busPIRone Yes 7.5 mg = 1 Me moria 7.5 mg oral 8-10 tab, PO, l tablet 19:33: BID, 0 [place] 00 Refill(s) buPROPion Yes 75 mg = 1 Mem oria 75 mg oral 8-10 tab, PO, l tablet 19:33: Daily, # [place] 00 14 tab, 0 Refill(s) amLODIPine Yes [...] tab, PO, l tablet 19:33: Daily, # [place] 00 14 tab, 0 Refill(s) Norvasc No Notes: Memoria 8-10 (Same as: l 17:35: Norvasc) Norvasc No Notes: [facility] 8-10 (Same as: l 17:35: Norvasc) [place] Norvasc No Notes: [facility]oria 8-10 (Same as: l 17:35: Norvasc) [place] 00 Norvasc No Notes: [facility]oria 8-10 (Same as: l 17:35: Norvasc) [place] 00 Norvasc No Notes: [facility]oria 8-10 (Same as: l 17:35: Norvasc) Vin 00 Dextrose 2021-0 No 25 gm, 50 Mendoza [...] 25 gm = 50 mL, 0 Epogen 2021-0 No Notes: 01-27 WASTE: F/P l 22:00: [...] Size: 2,000 unit Product Wasted: ____unit D5NS 000 No 1,000 mL, Me moria mL 01-27 Rate: 20 l 20:28: ml/hr, [place] Infuse over: 50 hr, Route: IV, Dosing Weight 74.5 kg, Total Volume: 1,000, Start date: 01/27/21 15:28:00 CDT, Duration: 30 day, Stop date: 02/26/21 15:27:00 CDT, BSA: 1.79 m2, 0 D5NS No 1,000 mL, Me moria mL 01-27 Rate: 20 l 20:28: ml/hr, [place] 00 Infuse over: 50 hr, Route: IV, [...] CDT, BSA: 1.79 m2, 0 D5NS 1,000 0 No 1,000 mL, Me moria mL 01-27 Rate: 20 l 20:28: ml/hr, [place] 00 Infuse over: 50 hr, Route: IV, Dosing Weight 74.5 kg, Total Volume: 1,000, Start date: 01/27/21 15:28:00 CDT, Duration: 30 day, Stop date: 02/26/21 15:27:00 CDT, BSA: 1.79 m2, 0 Tylenol No Notes: Do Memor ia 01-27 not exceed l 09:29: 4 gm/day. [place] 00 (Same as: Tylenol) tramadol No Notes: [...] 01-27 not exceed l 09:29: 4 gm/day. [place] 00 (Same as: Tylenol) tramadol No Notes: Not Mem oria hydrochlori 01-27 to exceed l de 50 MG 09:29: 400mg/day. Her braden Oral Tablet 00 (Same As: Ultram) Tylenol No Notes: Do Memor ia 01-27 not exceed l 09:29: 4 gm/day. [place] 00 (Same as: Tylenol) tramadol No Notes: [...] Notes: [facility]oria 01-27 porcine l 02:00: heparin [place] 00 heparin No Notes: [facility] 01-27 porcine l 02:00: heparin Vin 00 heparin No Notes: [facility] 01-27 porcine l 02:00: heparin [place] 00 heparin No Notes: [facility] 01-27 porcine l 02:00: heparin Vin 00 heparin No Notes: [facility] 01-27 porcine l 02:00: heparin Vin 00 Magnesium No Notes: Memori a Oxide 01-23 (Same as: l 22:54: Mag-Ox [place] 00 400) Magnesium oxide 037yp=132z g elemental magnesium Dose=____m g magnesium oxide (___mg elemental magnesium) Magnesium No Notes: Memori a Oxide 01-23 (Same as: l 22:54: Mag-Ox Vin 00 400) Magnesium oxide 246ab=353b g elemental magnesium Dose=____m g magnesium oxide (___mg elemental magnesium) Magnesium No Notes: Memori a Oxide 8-05 (Same as: l 22:54: Mag-Ox [place] 400) Magnesium oxide 368tz=852d g elemental magnesium Dose=____m g magnesium oxide (___mg elemental magnesium) Magnesium No Notes: Memori a Oxide 8-05 (Same as: l 22:54: Mag-Ox Vin 400) Magnesium oxide 935vb=884h g elemental magnesium Dose=____m g magnesium oxide (___mg elemental magnesium) Magnesium No Notes: Memori a Oxide 8-05 (Same as: l 22:54: Mag-Ox Vin 400) Magnesium oxide 306ug=558r g elemental magnesium Dose=____m g magnesium oxide (___mg elemental magnesium) Coreg No Notes: [facility] 8-05 Give with l 02:00: food. Vin 00 (Same As: Coreg) Coreg No Notes: [facility] 8-05 Give with l 02:00: food. Vin (Same As: Coreg) Coreg No Notes: [facility] 8-05 Give with l 02:00: food. Vin (Same As: Coreg) Coreg No Notes: [facility] 8-05 Give with l 02:00: food. [place] (Same As: Coreg) Coreg No Notes: [facility] 8-05 Give with l 02:00: food. [place] (Same As: Coreg) Buspar No Notes: [facility] 8-04 (Same As: l 22:00: BuSpar) [place] 00 Buspar No Notes: [facility] 8-04 (Same As: l 22:00: BuSpar) [place] 00 Buspar No Notes: [facility]oria 8-04 (Same As: l 22:00: BuSpar) Vin 00 Buspar No Notes: [facility] 8-04 (Same As: l 22:00: BuSpar) Vin 00 Buspar No Notes: [facility] 8-04 (Same As: l 22:00: BuSpar) [place] 00 Fentanyl No Notes: [facility]oria 8-04 (Same as: l 21:06: Sublimaze) [place] Preservati ve free. Fentanyl No Notes: [facility]oria 8-04 (Same as: l 21:06: Sublimaze) Vin 00 Preservati ve free. Fentanyl No Notes: [facility]oria 8-04 (Same as: l 21:06: Sublimaze) [place] 00 Preservati ve free. Fentanyl No Notes: [facility]oria 8-04 (Same as: l 21:06: Sublimaze) [place] Preservati ve free. Fentanyl No Notes: [facility]oria 8-04 (Same as: l 21:06: Sublimaze) Vin Preservati ve free. Norvasc No Notes: [facility] 8-04 (Same as: l 16:47: Norvasc) Vin Norvasc No Notes: [facility] 8-04 (Same as: l 16:47: Norvasc) [place] Norvasc No Notes: [facility]oria 8-04 (Same as: l 16:47: Norvasc) Vin Norvasc No Notes: [facility]oria 8-04 (Same as: l 16:47: Norvasc) [place] Norvasc No Notes: [facility]oria 8-04 (Same as: l 16:47: Norvasc) [place] 00 Wellbutrin No Notes: Memor ia 8-04 [...] No Notes: Memor ia 40 MG Oral 8 (Same as: l Tablet 14:00: Lasix) May [...] CDT Metoprolol No Notes: Memor ia Succinate 8 (Same as: l ER 100 mg 14:00: Toprol XL) He rmann oral October split tablet, tab, but extended do not [...] a 8-04 (Same as: l 14:00: Cardura) Vin 00 Furosemide No Notes: Memor ia 40 [...] Memoria 8-04 (Same as: l 09:44: Sublimaze) [place] 00 Preservati ve free. Tramadol No Notes: Not Mem oria 8-04 to exceed l 09:44: 400mg/day. [place] 00 (Same As: Ultram) Tylenol No Notes: Do Memor ia 8-04 not exceed l 09:44: 4 gm/day. [place] 00 (Same as: Tylenol) Fentanyl No Notes: Memoria 8-04 (Same as: l 09:44: Sublimaze) [place] 00 Preservati ve free. Tramadol No Notes: Not Mem oria 8-04 to exceed l 09:44: 400mg/day. [place] 00 (Same As: Ultram) Tylenol No Notes: Do Memor ia 8-04 not exceed l 09:44: 4 gm/day. Vin 00 (Same as: Tylenol) Fentanyl No Notes: Memoria 8-04 (Same as: l 09:44: Sublimaze) [place] 00 Preservati ve free. Tramadol No Notes: Not Mem oria 8-04 to exceed l 09:44: 400mg/day. [place] 00 (Same As: Ultram) Tylenol No Notes: Do Memor ia 8-04 not exceed l 09:44: 4 gm/day. [place] 00 (Same as: Tylenol) Fentanyl No Notes: Memoria 8-04 (Same as: l 09:44: Sublimaze) [place] 00 Preservati ve free. Fentanyl No Notes: Memoria 8-04 (Same as: l 04:46: Sublimaze) Vin 00 Preservati ve free. Fentanyl No Notes: [facility] 8-04 (Same as: l 04:46: Sublimaze) Vin 00 Preservati ve free. Fentanyl No Notes: [facility] 8-04 (Same as: l 04:46: Sublimaze) Vin 00 Preservati ve free. Fentanyl No Notes: [facility]oria 8-04 (Same as: l 04:46: Sublimaze) [place] 00 Preservati ve free. Fentanyl 0 No Notes: [facility]oria 8-04 (Same as: l 04:46: Sublimaze) [place] 00 Preservati ve free. Fentanyl No Notes: [facility]oria 8-04 (Same as: l 02:01: Sublimaze) [place] 00 Preservati ve free. Fentanyl No Notes: [facility]oria 8-04 (Same as: l 02:01: Sublimaze) Vin 00 Preservati ve free. Fentanyl No Notes: [facility]oria 8-04 (Same as: l 02:01: Sublimaze) [place] 00 Preservati ve free. Fentanyl No Notes: [facility]oria 8-04 (Same as: l 02:01: Sublimaze) [place] 00 Preservati ve free. Fentanyl No Notes: [facility]oria 8-04 (Same as: l 02:01: Sublimaze) [place] 00 Preservati ve free. Coreg No Notes: [facility] 8-04 Give with l 02:00: food. [place] 00 (Same As: Coreg) Saline No Notes: [...] 0.9% 8-04 Same as: l 02:00: BD [place] 00 Posiflush Sterile Valproate No 1,000 mg, Mem oria 8-04 2 tab, l 02:00: Route: PO, [place] 00 Drug form: ERTAB, Bedtime, Start date: 01/21/21 21:00:00 CDT, Duration: 30 day, Stop date: 02/19/21 21:00:00 CDT, 0 Coreg No Notes: [facility] 8-04 Give with l 02:00: food. [place] 00 (Same As: Coreg) Saline No Notes: [...] 0.9% 8-04 Same as: l 02:00: BD [place] 00 Posiflush Sterile Valproate No 1,000 mg, Mem oria 8-04 2 tab, l 02:00: Route: PO, Vin 00 Drug form: ERTAB, Bedtime, Start date: 01/21/21 21:00:00 CDT, Duration: 30 day, Stop date: 02/19/21 21:00:00 CDT, 0 Coreg No Notes: [facility] 8-04 Give with l 02:00: food. [place] 00 (Same As: Coreg) Saline No Notes: [...] Notes: [facility] 8-03 porcine l 21:00: heparin [place] 00 heparin No Notes: [facility] 8-03 porcine l 21:00: heparin [place] 00 heparin 2020-0 No Notes: [facility] - porcine l 21:00: heparin Dextrose 2020-0 No [...] Lispro 8-03 (Same as: l 20:01: Humalog) [place] 00 Roll in palms of hands gently; Do not shake vigorously . WASTE: F/P - Black; E - Municipal Trash Bin Stable for 28 days at room temperatur e. Expires in days from ____Date Dextrose 2020-0 No 12.5 gm, Memor ia 50% Syringe 8- 25 mL, l (D50W) 20:01: Route: [place] 00 IVP, Drug Form: INJ, Dosing Weight 74.5, kg, PRN, PRN Blood Glucose Results, Start date: 01/21/21 15:01:00 CDT, Duration: 30 day, Stop date: 02/20/21 15:00:00 CDT, 0 Glucagon 2020-0 No 1 mg, Memoria 8- Route: IM, l 20:01: Drug form: [place] 00 PDR/INJ, PRN, Dosing Weight 74.5, kg, [...] 8-03 25 mL, l (D50W) 20:01: Route: [place] 00 IVP, Drug Form: INJ, Dosing Weight 74.5, kg, PRN, PRN Blood Glucose Results, Start date: 01/21/21 15:01:00 CDT, Duration: 30 day, Stop date: 02/20/21 15:00:00 CDT, 0 Glucagon 202-0 No 1 mg, Mem[facility] 8- Route: IM, l 20:01: Drug form: [place] PDR/INJ, PRN, Dosing Weight 74.5, kg, PRN Blood Glucose Results, Start date: 01/21/21 15:01:00 CDT, Duration: 30 day, Stop date: 02/20/21 15:00:00 CDT, 0 Insulin No Notes: [facility] Lispro 8- (Same as: l 20:01: Humalog) Roll in [...] CDT, 0 Insulin No Notes: [facility] Lispro - (Same as: l 20:01: Humalog) Roll in palms of hands gently; Do not shake vigorously . WASTE: F/P - Black; E - Municipal Trash Bin Stable for 28 days at room temperatur e. Expires in days from ____Date gabapentin No Notes: Memor ia 300 MG Oral 01-21 (Same as: l Capsule 19:58: Neurontin) gabapentin No Notes: Memor ia 300 MG Oral (Same as: l Capsule 19:58: Neurontin) Herm [...] Same as: l 200 mL 18:26: Cardene [place] (Titrate.) 00 Concentrat IV 40 mg ion: (0.2 mg /1 ml ) Cardene 40 No Notes: Memor ia mg in NS 01-21 Same as: l 200 mL 18:26: Cardene [place] (Titrate.) 00 Concentrat IV 40 mg ion: (0.2 mg /1 ml ) Cardene 40 No Notes: Memor ia mg in NS 01-21 Same as: l 200 mL 18:26: Cardene Vin (Titrate.) 00 Concentrat IV 40 mg ion: (0.2 mg /1 ml ) Cyproheptad No 4 mg, 1 Mem oria ine - tab, l 18:00: Route: PO, Vin 00 [...] ine 8-03 tab, l 18:00: Route: PO, [place] 00 Drug form: TAB, TID, Dosing Weight 72, kg, Start date: 01/21/21 13:00:00 CDT, Duration: 30 day, Stop date: 02/20/21 9:00:00 CDT Cyproheptad 2020-0 No 4 mg, 1 Mem oria ine 8-03 tab, l 18:00: Route: PO, [place] 00 Drug form: TAB, TID, Dosing Weight 72, kg, Start date: 01/21/21 13:00:00 CDT, Duration: 30 day, Stop date: 02/20/21 9:00:00 CDT Albuterol No Notes: SEE Me moria 8 RT l 17:49: DOCUMENTAT [place] 00 ION (Same as: Proventil) Albuterol No Notes: SEE Me moria 8 RT l 17:49: DOCUMENTAT [place] 00 ION (Same as: Proventil) Albuterol No Notes: SEE Me moria 8 RT l 17:49: DOCUMENTAT Vin 00 ION (Same as: Proventil) Albuterol No Notes: SEE Me moria 8 RT l 17:49: DOCUMENTAT Vin 00 ION (Same as: Proventil) Albuterol No Notes: SEE Me moria 8- RT l 17:49: DOCUMENTAT [place] 00 ION (Same as: Proventil) albuterol 0 No 180 Memoria 90 mcg/inh 8-03 microgram, l inhalation 17:33: 2 puff, Herm naeem aerosol 00 Route: INHALATION , Drug Form: AERO/A, Dosing Weight 72, kg, PRN, PRN Wheezing, Start date: 01/21/21 12:33:00 CDT, Duration: 30 day, Stop date: 02/20/21 12:32:00 CDT albuterol 0 No 180 [facility] 90 mcg/inh 8-03 microgram, l inhalation 17:33: 2 puff, Herm naeem aerosol 00 Route: INHALATION , Drug Form: AERO/A, Dosing Weight 72, kg, PRN, PRN Wheezing, Start date: 01/21/21 12:33:00 CDT, Duration: 30 day, Stop date: 02/20/21 12:32:00 CDT albuterol 0 No 180 [facility] 90 mcg/inh 8-03 microgram, l inhalation 17:33: 2 puff, Herm naeem aerosol 00 Route: INHALATION , Drug Form: AERO/A, Dosing Weight 72, kg, PRN, PRN Wheezing, Start date: 01/21/21 12:33:00 CDT, Duration: 30 day, Stop date: 02/20/21 12:32:00 CDT albuterol 0 No 180 [facility] 90 mcg/inh [...] day, Stop date: 02/20/21 12:32:00 CDT Nystatin 0 No Notes: [facility] 100 UNT/MG 8-03 (Same l Topical 17:31: as:Mycosta Herm naeem Powder 00 tin, Nilstat) For external use only. Saline No Notes: [facility] Flush 0.9% 8-03 Same as: l 17:31: BD [place] 00 Posiflush Sterile propofol No Notes: If M emoria mg/mL 8-03 Diprivan - l (Titrate.) 17:31: change Nidia nn IV 1,000 mg 00 bottle & tubing every 12 hr Per state nursing law propofol can only be given by a nurse if patient is intubated or being intubated (unless the nurse is a MATERIALS MANAGEMENT MANAGER). Same as: Diprivan Nystatin No Notes: [facility] 100 UNT/MG 8-03 (Same l Topical 17:31: as:Mycosta Herm naeem Powder 00 tin, Nilstat) For external use only. Saline No Notes: [facility] Flush 0.9% 8-03 Same as: l 17:31: BD [place] 00 Posiflush Sterile propofol No Notes: If M emoria mg/mL 8-03 Diprivan - l (Titrate.) 17:31: change Nidia nn IV 1,000 mg 00 bottle & tubing every 12 hr Per state nursing law propofol can only be given by a nurse if patient is intubated or being intubated (unless the nurse is a MATERIALS MANAGEMENT MANAGER). Same as: Diprivan Nystatin No Notes: [facility] 100 UNT/MG 8-03 (Same l Topical 17:31: as:Mycosta Herm naeem Powder 00 tin, Nilstat) For external use only. Saline No Notes: [facility] Flush 0.9% 8-03 Same as: l 17:31: BD [place] 00 Posiflush Sterile propofol No Notes: If M emoria mg/mL 8-03 Diprivan - l (Titrate.) 17:31: change Nidia nn IV 1,000 mg 00 bottle & tubing every 12 hr Per state nursing law propofol can only be given by a nurse if patient is intubated or being intubated (unless the nurse is a MATERIALS MANAGEMENT MANAGER). Same as: Diprivan Nystatin No Notes: Memoria [...] being intubated (unless the nurse is a MATERIALS MANAGEMENT MANAGER). Same as: Diprivan Nystatin No Notes: Mem[facility] 100 UNT/MG 01-21 (Same l Topical 17:31: as:Mycosta Herm naeem Powder 00 tin, Nilstat) For external use only. Saline No Notes: [facility] Flush 0.9% 8- Same as: l 17:31: BD [place] 00 Posiflush Sterile propofol 10 No Notes: If M emoria mg/mL 8-03 Diprivan - l (Titrate.) 17:31: change Nidia nn IV 1,000 mg 00 bottle & tubing every 12 hr Per state nursing law propofol can only be given by a nurse if patient is intubated or being intubated (unless the nurse is a MATERIALS MANAGEMENT MANAGER). Same as: Diprivan midazolam No Route: IV, [...] 01-21 Drug form: l 17:18: INJ, ONCE, [place] 00 Stop date: 01/21/21 12:18:00 CDT midazolam [...] 01-21 Drug form: l 17:18: INJ, ONCE, [place] 00 Stop date: 01/21/21 12:18:00 CDT niCARdipine 2020-0 No Route: IV, Memoria (ANES) 01-21 Drug form: l 17:18: INJ, ONCE, [place] 00 Stop date: 01/21/21 12:18:00 CDT midazolam 2020-0 No Route: IV, Me moria (ANES) 01-21 Drug form: l 17:18: SOLN, [place] ONCE, Stop date: 01/21/21 12:18:00 CDT fentaNYL [...] 01-21 Same as l 13:16: Dilaudid Flumazenil 2021-0 No Notes: Memor ia 8- (Same as: [...] janice 8 (Same as: l 13:16: Mylicon, [place] Phazyme, Genasyme) Hydralazine No Notes: Mendoza janice [...] - not give l 13:16: IV push. Vin [...] not give l 13:16: IV push. Vin (Same as: Phenergan) Simethicone No Notes: Mendoza [...] - not give l 13:16: IV push. [place] 00 (Same as: Phenergan) Simethicone No Notes: Mendoza janice 01-21 (Same as: l 13:16: Mylicon, [place] Phazyme, Genasyme) Hydralazine No Notes: Mendoza janice - (Same [...] 01-21 not give l 13:16: IV push. [place] 00 (Same as: Phenergan) Simethicone No Notes: [...] tab, 2 Refill(s), Pharmacy: [facility], 154.94, cm, 12/24/20 10:43:00 CDT, Height, 71.818, kg, 12/24/20 10:43:00 CDT, Weight rifaximin 1-0 Yes 550 mg = 1 Me moria 550 MG Oral 7-06 tab, PO, l Tablet 18:46: TID, # 42 Jake n [XIFAXAN] 00 tab, 2 Refill(s), Pharmacy: [facility], 154.94, cm, 12/24/20 10:43:00 CDT, Height, 71.818, kg, 12/24/20 10:43:00 CDT, Weight rifaximin 1-0 Yes 550 mg = 1 Me moria 550 MG Oral 7-06 tab, PO, l Tablet 18:46: TID, # 42 Jake n [XIFAXAN] 00 tab, 2 Refill(s), Pharmacy: [facility], 154.94, cm, 12/24/20 10:43:00 CDT, Height, 71.818, kg, 12/24/20 10:43:00 CDT, Weight rifaximin 1-0 Yes 550 mg = 1 Me moria 550 MG Oral 7-06 tab, PO, l Tablet 18:46: TID, # 42 Jake n [XIFAXAN] 00 tab, 2 Refill(s), Pharmacy: [facility], 154.94, cm, 12/24/20 10:43:00 CDT, Height, 71.818, kg, 12/24/20 10:43:00 CDT, Weight rifaximin 1-0 Yes 550 mg = 1 Me moria 550 MG Oral 7-06 tab, PO, l Tablet 18:46: TID, # 42 Jake n [XIFAXAN] 00 tab, 2 Refill(s), Pharmacy: [facility], 154.94, cm, 12/24/20 10:43:00 CDT, Height, 71.818, kg, 12/24/20 10:43:00 CDT, Weight {2 (480 ML 2020-0 Yes See Memoria Magnesium 7-06 Instructio l Sulfate 18:12: ns, take Jake n 0.0277 00 as MEQ/ML / directed, potassium give sulfate clenpiq if 0.0374 not MEQ/ML / covered by sodium insurance, sulfate # 1 ea, 0 0.257 Refill(s), MEQ/ML Oral Pharmacy: Solution) } [facility] [Suprep 808, Bowel Prep 154.94, [...] Refill(s), MEQ/ML Oral Pharmacy: [facility]) } [facility] [Suprep 808, Bowel Prep 154.94, [...] Refill(s), MEQ/ML Oral Pharmacy: [facility]) } [facility] [Suprep 808, Bowel Prep 154.94, [...] 0.257 Refill(s), MEQ/ML Oral Pharmacy: Solution) } [facility] [Suprep 808, Bowel Prep 154.94, Kit] cm, 12/24/20 10:43:00 CDT, Height, 71.818, kg, 12/24/20 10:43:00 CDT, Weight {2 (480 ML 2020-0 Yes See Memoria Magnesium -06 Instructio l Sulfate 18:12: ns, take Jake n 0.0277 00 as MEQ/ML / directed, potassium give sulfate clenpiq if 0.0374 not MEQ/ML / covered by sodium insurance, sulfate # 1 ea, 0 0.257 Refill(s), MEQ/ML Oral Pharmacy: Solution) } [facility] [Suprep 808, Bowel Prep 154.94, Kit] [...] day, # 90 tab, 3 Refill(s), Pharmacy: [facility] 808, 154.94, cm, 12/24/20 10:43:00 CDT, Height, 71.818, kg, 12/24/20 10:43:00 CDT, Weight cyproheptad 2020-0 Yes 4 mg = 1 Me moria ine 4 mg 7-06 tab, PO, l oral tablet 18:10: TID, X 30 H ermann 00 day, # 90 tab, 3 Refill(s), Pharmacy: [facility] 808, 154.94, cm, 12/24/20 10:43:00 CDT, Height, 71.818, kg, 12/24/20 10:43:00 CDT, Weight cyproheptad 1-0 Yes 4 mg = 1 Me moria ine 4 mg 7-06 tab, PO, l oral tablet 18:10: TID, X 30 H ermann 00 day, # 90 tab, 3 Refill(s), Pharmacy: [facility] 808, 154.94, cm, 12/24/20 10:43:00 CDT, Height, 71.818, kg, 12/24/20 10:43:00 CDT, Weight cyproheptad 1-0 Yes 4 mg = 1 Me moria ine 4 mg 7-06 tab, PO, l oral tablet 18:10: TID, X 30 H erm 00 day, # 90 tab, 3 Refill(s), Pharmacy: [facility] 808, 154.94, cm, 12/24/20 10:43:00 CDT, Height, 71.818, kg, 12/24/20 10:43:00 CDT, Weight cyproheptad 1-0 Yes 4 mg = 1 Me moria ine 4 mg 7-06 tab, PO, l oral tablet 18:10: TID, X 30 H erm day, # 90 tab, 3 Refill(s), Pharmacy: [facility] 808, 154.94, cm, 12/24/20 10:43:00 CDT, Height, 71.818, kg, 12/24/20 10:43:00 CDT, Weight Zinc 2020-0 Yes 140 mg, Memoria 7-06 PO, Daily, l 15:54: 0 [place] 00 Refill(s) Elderberry 2020-0 Yes 0 Memoria preparation 7-06 Refill(s) l 15:54: Vin 00 Zinc 1-0 Yes 140 mg, Memoria 7-06 PO, Daily, l 15:54: 0 Vin 00 Refill(s) Elderberry 2020-0 Yes 0 Memoria preparation 7-06 Refill(s) l 15:54: Vin 00 Zinc 1-0 Yes 140 mg, Memoria 7-06 PO, Daily, [...] Take 200 UT (Desyrel) 6-19 mg by [facility] 100 MG 00:00: mouth at tablet [...] Take 500 UT (Depakote 6-19 mg by [facility] ER) 500 MG 00:00: mouth 2 24 hr 00 (two) tablet times a day. busPIRone 0 Yes 7.5mg Q.5D Take 7.5 UT (Buspar) 6-19 mg by [facility] 7.5 MG 00:00: mouth 2 tablet 00 (two) times a day. buPROPion Yes 300mg Take 300 UT XL 6-19 mg by [facility] (Wellbutrin 00:00: mouth 1 XL) 300 MG 00 (one) time 24 hr each day tablet in the morning. metoprolol 0 Yes 1{tbl} QD Take 1 UT succinate 5-25 tablet by [facility] h XL 00:00: mouth 1 (Toprol-XL) 00 (one) time 50 MG 24 hr each day. tablet ascorbic Yes 500mg Q.20216140 Take 500 UT acid 5-15 [id number] mg by [facility] (Vitamin C) 00:00: 3D mouth 3 500 MG 00 (three) tablet times a day. zinc 0 Yes DAILY [facility] sulfate 50 5-10 ity of mg zinc 00:00: [place] (220 mg) 00 Medical capsule Branch sucralfate 0 Yes 1{tbl} QD Take 1 UT (Carafate) 5-[address] [facility] th 1 g tablet 00:00: mouth 1 00 (one) time each day. ondansetron 0 Yes 4mg Take 4 mg U nivers 4 mg 4-13 by mouth ity of disintegrat [place] tablet 00 [facility] GLIPIZIDE 5 2021-0 Yes [id number] TAKE 1 [facility] mg tablet 4-06 TABLET [...] by ity o f 00:00: mouth at [place] 00 bedtime. Medical Branch doxazosin 4 Yes 4mg Take 1 Univ ers mg tablet -07 tablet by ity o f 00:00: mouth at [place] 00 bedtime. Medical Branch glipiZIDE 5 2019-06- No [id number] 5mg Take 1 Univers mg tablet 07-01-06 [...] by ity of tablet 00:00: mouth at [place] [address] bedtime. Medical Branch traZODone Yes 150mg Take 150 Uni vers 150 mg 8-13 mg by ity of tablet 00:00: mouth at [place] [address] bedtime. Medical Branch erythromyci 2020- No [id number] .5[in_u Place 0.5 Univers n 5 mg/gram [...] daily. Center tablet metoclopram 2017 Yes 10mg Q.18558031 Take [address] [facility] gadiel HCl 7-20 [id number] by mouth [facility] (REGLAN) 10 15:20: [...] l 59 Center hydrALAZINE 2017-0 Yes 100mg Q.85929009 Take [address] [facility] (APRESOLINE 7-20 [id number] mg by L hosea ) 100 MG 15:20: 3D mouth 3 Medica l tablet 59 (three) Center times daily. magnesium 2017-0 Yes 400mg QD Take [address] [facility] oxide 7-20 mg by [facility] (MAG-OX) 15:20: mouth Medical 400 mg 59 daily. Center tablet metoclopram 2017-0 Yes 10mg Q.23242927 Take [address] [facility] gadiel HCl 7-20 [id number] by mouth 3 [facility] (REGLAN) 10 15:20: [...] l 59 Center hydrALAZINE 2017-0 Yes 100mg Q.35711717 Take [address] [facility] (APRESOLINE 7-20 [id number] mg by L ukes ) 100 MG 15:20: 3D mouth 3 Medica l tablet 59 (three) Center times daily. magnesium 2017-0 Yes 400mg QD Take [address] [facility] oxide 7-20 mg by [facility] (MAG-OX) 15:20: mouth Medical 400 mg 59 daily. Center tablet metoclopram 2017-0 Yes 10mg Q.74043675 Take [address] [facility] gadiel HCl 7-20 [id number] by mouth 3 [facility] (REGLAN) 10 15:20: [...] l 59 Center hydrALAZINE 2017-0 Yes 100mg Q.69681058 Take [address] [facility] [address] (APRESOLINE 7-20 [id number] mg by L ukes ) 100 MG 15:20: 3D mouth 3 Medica l tablet 59 (three) Center times daily. magnesium 2017-0 Yes 400mg QD Take [address] [facility] [address] oxide 7-20 mg by [facility] (MAG-OX) 15:20: mouth Medical 400 mg 59 daily. Center tablet metoclopram 2017-0 Yes 10mg Q.46030684 Take [address] [facility] gadiel HCl 7-20 [id number] by mouth 3 [facility] (REGLAN) 10 15:20: [...] l 59 Center hydrALAZINE 2017-0 Yes 100mg Q.70959142 Take [address] [facility] [address] (APRESOLINE 7-20 [id number] mg by L ukes ) 100 MG 15:20: 3D mouth 3 Medica l tablet 59 (three) Center times daily. magnesium 2017-0 Yes 400mg QD Take [address] [facility] [address] oxide 7-20 mg by [facility] (MAG-OX) 15:20: mouth Medical 400 mg 59 daily. Center tablet metoclopram 2017-0 Yes 10mg Q.76941303 Take [address] [facility] gadiel HCl 7-20 [id number] by mouth 3 [facility] (REGLAN) 10 15:20: [...] l 59 Center hydrALAZINE 2017-0 Yes 100mg Q.62414436 Take [address] [facility] [address] (APRESOLINE 7-20 [id number] mg by L ukes ) 100 MG 15:20: 3D mouth 3 Medica l tablet 59 (three) Center times daily. magnesium 2017-0 Yes 400mg QD Take [address] [facility] [address] oxide 7-20 mg by [facility] (MAG-OX) 15:20: mouth Medical 400 mg 59 daily. Center tablet metoclopram 2017-0 Yes 10mg Q.14587549 Take [address] [facility] gadiel HCl 7-20 [id number] by mouth 3 [facility] (REGLAN) 10 15:20: [...] l 59 Center hydrALAZINE 2017-0 Yes 100mg Q.35231969 Take [address] [facility] [address] (APRESOLINE 7-20 [id number] mg by L ukes ) 100 MG 15:20: 3D mouth 3 Medica l tablet 59 (three) Center times daily. magnesium 2017-0 Yes 400mg QD Take [address] [facility] [address] oxide 7-20 mg by [facility] (MAG-OX) 15:20: mouth Medical 400 mg 59 daily. Center tablet metoclopram 2017-0 Yes 10mg Q.66062889 Take [address] [facility] gadiel HCl 7-20 [id number] by mouth 3 [facility] (REGLAN) 10 15:20: [...] l 59 Center hydrALAZINE 2017-0 Yes 100mg Q.43841970 Take [address] [facility] [address] (APRESOLINE 7-20 [id number] mg by L ukes ) 100 MG 15:20: 3D mouth 3 Medica l tablet 59 (three) Center times daily. magnesium 2017-0 Yes 400mg QD Take [address] [facility] [address] oxide 7-20 mg by [facility] (MAG-OX) 15:20: mouth Medical 400 mg 59 daily. Center tablet metoclopram 2017-0 Yes 10mg Q.98493296 Take [address] [facility] gadiel HCl 7-20 [id number] by mouth 3 [facility] (REGLAN) 10 15:20: [...] l 59 Center hydrALAZINE 2017-0 Yes 100mg Q.12677735 Take [address] [facility] [address] (APRESOLINE 7-20 [id number] mg by L ukes ) 100 MG 15:20: 3D mouth 3 Medica l tablet 59 (three) Center times daily. magnesium 2017-0 Yes 400mg QD Take [address] [facility] [address] oxide 7-20 mg by [facility] (MAG-OX) 15:20: mouth Medical 400 mg 59 daily. Center tablet metoclopram 2017-0 Yes 10mg Q.56807345 Take [address] [facility] gadiel HCl 7-20 [id number] by mouth 3 [facility] (REGLAN) 10 15:20: [...] l 59 Center hydrALAZINE 2017-0 Yes 100mg Q.80190383 Take [address] [facility] [address] (APRESOLINE 7-20 [id number] mg by L ukes ) 100 MG 15:20: 3D mouth 3 Medica l tablet 59 (three) Center times daily. magnesium 2017-0 Yes 400mg QD Take [address] [facility] [address] oxide 7-20 mg by [facility] (MAG-OX) 15:20: mouth Medical 400 mg 59 daily. Center tablet metoclopram 2017-0 Yes 10mg Q.42575951 Take [address] [facility] gadiel HCl 7-20 [id number] by mouth 3 [facility] (REGLAN) 10 15:20: [...] l 59 Center hydrALAZINE 2017-0 Yes 100mg Q.27771970 Take [address] [facility] [address] (APRESOLINE 7-20 [id number] mg by L ukes ) 100 MG 15:20: 3D mouth 3 Medica l tablet 59 (three) Center times daily. magnesium 2017-0 Yes 400mg QD Take [address] [facility] [address] oxide 7-20 mg by [facility] (MAG-OX) 15:20: mouth Medical 400 mg 59 daily. Center tablet metoclopram 2017-0 Yes 10mg Q.26419983 Take [address] [facility] gadiel HCl 7-20 [id number] by mouth [facility] (REGLAN) 10 15:20: [...] l 59 Center hydrALAZINE 2017-0 Yes 100mg Q.23043247 Take [address] [facility] [address] (APRESOLINE 7-20 [id number] mg by L ukes ) 100 MG 15:20: 3D mouth 3 Medica l tablet 59 (three) Center times daily. magnesium 2017-0 Yes 400mg QD Take [address] [facility] [address] oxide 7-20 mg by [facility] (MAG-OX) 15:20: mouth Medical 400 mg 59 daily. Center tablet metoclopram 2017-0 Yes 10mg Q.69274809 Take [address] [facility] gadiel HCl 7-20 [id number] by mouth 3 [facility] (REGLAN) 10 15:20: [...] l 59 Center hydrALAZINE 2017-0 Yes 100mg Q.23007590 Take [address] [facility] [address] (APRESOLINE 7-20 [id number] mg by L ukes ) 100 MG 15:20: 3D mouth 3 Medica l tablet 59 (three) Center times daily. magnesium 2017-0 Yes 400mg QD Take [address] [facility] oxide 7-20 mg by [facility] (MAG-OX) 15:20: mouth Medical 400 mg 59 daily. Center tablet metoclopram 2017-0 Yes 10mg Q.45602541 Take [address] [facility] gadiel HCl 7-20 [id number] by mouth [facility] (REGLAN) 10 15:20: 3D (three) Med ical MG tablet 59 times Center daily. meclizine 20170 Yes 12.5mg Take 12.[address] (ANTIVERT) 7-20 mg by [facility] 25 MG 15:20: mouth 3 Medical tablet 59 (three) Center times daily as needed. divalproex 2017- Yes depression 500mg QD Take [...] l 59 Center hydrALAZINE 2017-0 Yes 100mg Q.17263973 Take [address] [facility] [address] (APRESOLINE 7-20 [id number] mg by L ukes ) 100 MG 15:20: 3D mouth 3 Medica l tablet 59 (three) Center times daily. magnesium 2017-0 Yes 400mg QD Take [address] [facility] [address] oxide 7-20 mg by [facility] (MAG-OX) 15:20: mouth Medical 400 mg 59 daily. Center tablet metoclopram 2017-0 Yes 10mg Q.79704478 Take [address] [facility] gadiel HCl 7-20 [id number] by mouth [facility] (REGLAN) 10 15:20: [...] l 59 Center hydrALAZINE 2017-0 Yes 100mg Q.51612784 Take [address] [facility] [address] (APRESOLINE 7-20 [id number] mg by L ukes ) 100 MG 15:20: 3D mouth 3 Medica l tablet 59 (three) Center times daily. magnesium 2017-0 Yes 400mg QD Take [address] [facility] [address] oxide 7-20 mg by [facility] (MAG-OX) 15:20: mouth Medical 400 mg 59 daily. Center tablet metoclopram 2017-0 Yes 10mg Q.30123683 Take [address] [facility] gadiel HCl 7-20 [id number] by mouth [facility] (REGLAN) 10 15:20: [...] l 59 Center hydrALAZINE 2017-0 Yes 100mg Q.[id number] Take [address] [facility] [address] (APRESOLINE 7-20 [id number] mg by L ukes ) 100 MG 15:20: 3D mouth 3 Medica l tablet 59 (three) Center times daily. magnesium 2017-0 Yes 400mg QD Take [address] oxide 7-20 mg by [facility] (MAG-OX) 15:20: mouth Medical 400 mg 59 daily. Center tablet metoclopram 2017-0 Yes 10mg Q.29683327 Take [address] [facility] gadiel HCl 7-20 [id number] by mouth [facility] (REGLAN) 10 15:20: [...] l 59 Center hydrALAZINE 2017-0 Yes 100mg Q.[id number] Take [address] [facility] [address] (APRESOLINE 7-20 [id number] mg by L ukes ) 100 MG 15:20: 3D mouth 3 Medica l tablet 59 (three) Center times daily. magnesium 2017-0 Yes 400mg QD Take [address] [facility] [address] oxide 7-20 mg by [facility] (MAG-OX) 15:20: mouth Medical 400 mg 59 daily. Center tablet metoclopram 2017-0 Yes 10mg Q.24901806 Take [address] [facility] gadiel HCl 7-20 [id number] by mouth 3 [facility] (REGLAN) 10 15:20: [...] l 59 Center hydrALAZINE 2017-0 Yes 100mg Q.19392589 Take [address] [facility] [address] (APRESOLINE 7-20 [id number] mg by L ukes ) 100 MG 15:20: 3D mouth 3 Medica l tablet 59 (three) Center times daily. magnesium 2017- Yes 400mg QD Take [address] [facility] [address] oxide 7-20 mg by [facility] (MAG-OX) 15:20: mouth Medical 400 mg 59 daily. Center tablet metoclopram 2017 Yes 10mg Q.44338956 Take [address] [facility] gadiel HCl 7-20 [id number] by mouth [facility] (REGLAN) 10 15:20: [...] l 59 Center hydrALAZINE 2017-0 Yes 100mg Q.25700617 Take [address] [facility] [address] (APRESOLINE 7-20 [id number] mg by L ukes ) 100 MG [...] tab, PO, l Tablet 15:07: Daily, # [place] 00 30 tab, 0 Refill(s), Pharmacy: [place] [address] Furosemide Yes 40 mg = 1 Me moria 40 MG Oral 2-09 tab, PO, l Tablet 15:07: Daily, # [place] 00 30 tab, 0 Refill(s), Pharmacy: [place] [address] Furosemide Yes 40 mg = 1 Me moria 40 MG Oral 2-09 tab, PO, l Tablet 15:07: Daily, # Vin 00 30 tab, 0 Refill(s), Pharmacy: [facility] Furosemide Yes 40 mg = 1 Me moria 40 MG Oral 2-09 tab, PO, l Tablet 15:07: Daily, # Vin 00 30 tab, 0 Refill(s), Pharmacy: [facility] Furosemide Yes 40 mg = 1 Me moria 40 MG Oral 2-09 tab, PO, l Tablet 15:07: Daily, # [place] 00 30 tab, 0 Refill(s), Pharmacy: [facility] Bumex No 0.5 mg, Memoria 2 Route: PO, l 15:00: Drug form: Vin 00 TAB, Daily, Dosing Weight 92.273, kg, Start date: 07/30/16 9:00:00 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, Duration: 30 day, Stop date: 08/28/16 9:00:00 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 Bumex 2017-0 No 0.5 mg, Memoria 2-09 Route: PO, l 15:00: Drug form: [place] 00 TAB, Daily, Dosing Weight 92.273, kg, Start date: 07/30/16 9:00:00 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, Duration: 30 day, Stop date: 08/28/16 9:00:00 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 Bumex 2017-0 No 0.5 mg, Memoria 2-09 Route: PO, l 15:00: Drug form: [place] 00 TAB, Daily, Dosing Weight 92.273, kg, Start date: 07/30/16 9:00:00 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, Duration: 30 day, Stop date: 08/28/16 9:00:00 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 Bumex 2017-0 No 0.5 mg, Memoria 2-09 Route: PO, l 15:00: Drug form: [place] 00 TAB, Daily, Dosing Weight 92.273, kg, Start date: 07/30/16 9:00:00 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, Duration: 30 day, Stop date: 08/28/16 9:00:00 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 Bumex 2017-0 No 0.5 mg, Memoria 2-09 Route: PO, l 15:00: Drug form: Vin 00 TAB, Daily, Dosing Weight 92.273, kg, Start date: 07/30/16 9:00:00 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, Duration: 30 day, Stop date: 08/28/16 9:00:00 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 Lasix 2017-0 No Notes: Memoria 2-08 (Same as: l 20:05: Lasix) May [place] 00 cause GI upset. Give with food or milk. Lasix 2016-0 No Notes: Memoria 2-08 (Same as: l 20:05: Lasix) May [place] 00 cause GI upset. Give with food or milk. Lasix 2016-0 No Notes: Memoria 2-08 (Same as: l 20:05: Lasix) May [place] 00 cause GI upset. Give with food or milk. Lasix 2016-0 No Notes: Memoria 2-08 (Same as: l 20:05: Lasix) October [place] 00 cause GI upset. Give with food or milk. Lasix 2016-0 No Notes: Memoria 2-08 (Same as: l 20:05: Lasix) May [place] 00 cause GI upset. Give with food or milk. Hydralazine 2016-0 No Notes: Mendoza janice 2-08 (Same as: l 06:05: Apresoline [place] 00 ) Push over 5 minutes Hydralazine 2016-0 No Notes: Mendoza janice 2-08 (Same as: l 06:05: Apresoline Vin 00 ) Push over 5 minutes Hydralazine 2016-0 No Notes: Mendoza janice 2-08 (Same as: l 06:05: Apresoline [place] 00 ) Push over 5 minutes Hydralazine 2016-0 No Notes: Mendoza janice 2-08 (Same as: l 06:05: Apresoline [place] 00 ) Push over 5 minutes Hydralazine 2016-0 No Notes: Mendoza janice 2-08 (Same as: l 06:05: Apresoline [place] 00 ) Push over 5 minutes sodium 2017-0 No 1,000 mL, Memori a chloride 2-05 Rate: 125 l 0.9% 1000 18:26: ml/hr, Jake n ml INJ 00 Infuse 1,000 mL over: 8 hr, Route: IV, Dosing Weight 92.273 kg, Total Volume: 1,000, Start date: 07/26/16 12:26:00 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, Duration: 30 day, Stop date: 08/25/16 12:25:00 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 sodium 2017-0 No 1,000 mL, Memori a chloride 2-05 Rate: 125 l 0.9% 1000 18:26: ml/hr, Jake n ml INJ 00 Infuse 1,000 mL over: 8 hr, Route: IV, Dosing Weight 92.273 kg, Total Volume: 1,000, Start date: 07/26/16 12:26:00 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, Duration: 30 day, Stop date: 08/25/16 12:25:00 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 sodium 2017-0 No 1,000 mL, Memori a chloride 2-05 Rate: 125 l 0.9% 1000 18:26: ml/hr, Jake n ml INJ 00 Infuse 1,000 mL over: 8 hr, Route: IV, Dosing Weight 92.273 kg, Total Volume: 1,000, Start date: 07/26/16 12:26:00 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, Duration: 30 day, Stop date: 08/25/16 12:25:00 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 sodium 2017-0 No 1,000 mL, Memori a chloride 2-05 Rate: 125 l 0.9% 1000 18:26: ml/hr, Jake n ml INJ 00 Infuse 1,000 mL over: 8 hr, Route: IV, Dosing Weight 92.273 kg, Total Volume: 1,000, Start date: 07/26/16 12:26:00 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, Duration: 30 day, Stop date: 08/25/16 12:25:00 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 sodium 2017-0 No 1,000 mL, Memori a chloride 2-05 Rate: 125 l 0.9% 1000 18:26: ml/hr, Jake n ml INJ 00 Infuse 1,000 mL over: 8 hr, Route: IV, Dosing Weight 92.273 kg, Total Volume: 1,000, Start date: 07/26/16 12:26:00 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, Duration: 30 day, Stop date: 08/25/16 12:25:00 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 Sodium 2017-0 No 500 mL, Memoria Chloride 2-05 500 ml/hr, l 0.154 13:30: Infuse Vin MEQ/ML 00 Over: 1 Injectable hr, Route: Solution IV, 500, Drug form: INJ, ONCE, Priority: STAT, Dosing Weight 92.273 kg, Start date: 07/26/16 7:30:00 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, Duration: 1 doses or times, Stop date: 07/26/16 7:30:00 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 Sodium 2017-0 No 500 mL, Memoria Chloride 2-05 500 ml/hr, l 0.154 13:30: Infuse [place] MEQ/ML 00 Over: 1 Injectable hr, Route: Solution IV, 500, Drug form: INJ, ONCE, Priority: STAT, Dosing Weight 92.273 kg, Start date: 07/26/16 7:30:00 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, Duration: 1 doses or times, Stop date: 07/26/16 7:30:00 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 Sodium 2017-0 No 500 mL, Memoria Chloride 2-05 500 ml/hr, l 0.154 13:30: Infuse [place] MEQ/ML 00 Over: 1 Injectable hr, Route: Solution IV, 500, Drug form: INJ, ONCE, Priority: STAT, Dosing Weight 92.273 kg, Start date: 07/26/16 7:30:00 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, Duration: 1 doses or times, Stop date: 07/26/16 7:30:00 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 Sodium 2017-0 No 500 mL, Memoria Chloride 2-05 500 ml/hr, l 0.154 13:30: Infuse Vin MEQ/ML 00 Over: 1 Injectable hr, Route: Solution IV, 500, Drug form: INJ, ONCE, Priority: STAT, Dosing Weight 92.273 kg, Start date: 07/26/16 7:30:00 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, Duration: 1 doses or times, Stop date: 07/26/16 7:30:00 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 Sodium 2017-0 No 500 mL, Memoria Chloride 2-05 500 ml/hr, l 0.154 13:30: Infuse Vin MEQ/ML 00 Over: 1 Injectable hr, Route: Solution IV, 500, Drug form: INJ, ONCE, Priority: STAT, Dosing Weight 92.273 kg, Start date: 07/26/16 7:30:00 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, Duration: 1 doses or times, Stop date: 07/26/16 7:30:00 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 Insulin 2017-0 No 60 units) Mendoza janice regular 2-04 WASTE: F/P l 08:39: - Black; E [place] 00 - Municipal Trash Bin Stable for [...] WASTE: F/P l 08:39: - Black; E [place] 00 - Municipal Trash Bin Stable for [...] WASTE: F/P l 08:39: - Black; E [place] 00 - Municipal Trash Bin Stable for [...] Roll in l Human 07:31: palms of [place] 00 hands gently; Do not shake vigorously . (Same as: NovoLOG) "single patient use only" WASTE: F/P - Black; E - Municipal Trash Bin Stable for 28 days at room temperatur e. Expires in days from ____Date Insulin, No Notes: Memoria Aspart, 2-04 Roll in l Human 07:31: palms of [place] 00 hands gently; Do not shake vigorously [...] Roll in l Human 05:42: palms of [place] 00 hands gently; Do not shake vigorously [...] Roll in l Human 05:42: palms of [place] 00 hands gently; Do not shake vigorously . (Same as: NovoLOG) "single patient use only" WASTE: F/P - Black; E - Municipal Trash Bin Stable for 28 days at room temperatur e. Expires in days from ____Date Insulin, No Notes: Memoria Aspart, 2-04 Roll in l Human 03:28: palms of [place] 00 hands gently; Do not shake vigorously [...] Roll in l Human 03:28: palms of [place] 00 hands gently; Do not shake vigorously [...] sodium 2-04 (Same as: l 03:00: Depakote [place] 00 ER) Once daily dosing; indicated for migraines. Divalproex sodium extended-r elease tab. Do not chew or crush. "Do Not Crush" atorvastati No Notes: Mendoza janice n 2-04 (Same as: l 03:00: Lipitor) Vin 00 divalproex No Notes: Memor ia sodium 2-04 (Same as: l 03:00: Depakote [place] 00 ER) Once daily dosing; indicated for migraines. Divalproex sodium extended-r elease tab. Do not chew or crush. "Do Not Crush" atorvastati No Notes: Mendoza janice n 2-04 (Same as: l 03:00: Lipitor) [place] 00 divalproex No Notes: Memor ia sodium 2-04 (Same as: l 03:00: Depakote [place] 00 ER) Once daily dosing; indicated for migraines. Divalproex sodium extended-r elease tab. Do not chew or crush. "Do Not Crush" atorvastati No Notes: Mendoza janice n 2-04 (Same as: l 03:00: Lipitor) Vin divalproex No Notes: Memor ia sodium 2-04 (Same as: l 03:00: Depakote [place] 00 ER) Once daily dosing; indicated for migraines. Divalproex sodium extended-r elease tab. Do not chew or crush. "Do Not Crush" Lasix No Notes: Memoria 2-03 (Same as: l 22:00: Lasix) [place] 00 MEDICATION WASTE Product Size: 40 mg [...] Memoria 2-03 (Same as: l 22:00: Lasix) [place] 00 MEDICATION WASTE Product Size: 40 mg Product Wasted: ___ mg Tylenol No Notes: Max Mendoza janice 2-03 acetaminop l 21:52: hen = [place] 00 4000mg/day (4 gm/day). (Same as: Tylenol) Tylenol No Notes: Max Mendoza janice 2-03 acetaminop l 21:52: hen = [place] 00 4000mg/day (4 gm/day). (Same as: Tylenol) Tylenol No Notes: Max Mendoza janice 2-03 acetaminop l 21:52: hen = [place] 00 4000mg/day (4 gm/day). (Same as: Tylenol) Tylenol No Notes: Max Mendoza janice 2-03 acetaminop l 21:52: hen = Vin 00 4000mg/day (4 gm/day). (Same as: Tylenol) Tylenol No Notes: Max Mendoza janice 2-03 acetaminop l 21:52: hen = [place] 00 4000mg/day (4 gm/day). (Same as: Tylenol) Bupropion No 150 mg, 1 Mem oria 2-03 tab, l 15:00: Route: PO, [place] 00 Drug form: ERTAB, Daily, Dosing Weight 92.273, kg, Start date: 07/24/16 9:00:00 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, Duration: 30 day, Stop date: 08/22/16 9:00:00 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 24 HR No Notes: Memoria Divalproex 2-03 [...] form: ERTAB, Daily, Start date: 07/24/16 9:00:00 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, Duration: 30 day, Stop date: 08/22/16 9:00:00 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 Insulin No Notes: Memoria Glargine 2-03 Same [...] oria 2-03 tab, l 15:00: Route: PO, [place] Drug form: ERTAB, Daily, Dosing Weight 92.273, kg, Start date: 07/24/16 9:00:00 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, Duration: 30 day, Stop date: 08/22/16 9:00:00 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 24 HR No Notes: Memoria Divalproex 2-03 [...] Memoria 2-03 (Same as: l 15:00: Zoloft) [place] Protonix No Notes: Memoria 2-03 Tablet l 15:00: should not [place] 00 be chewed or crushed. (Same as: Protonix) metoprolol No 100 mg, 2 Me moria extended 2-03 tab, l release 15:00: Route: PO, Herm naeem Drug form: ERTAB, Daily, Start date: 07/24/16 9:00:00 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, Duration: 30 day, Stop date: 08/22/16 9:00:00 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 Insulin No Notes: Memoria Glargine 2-03 Same [...] oria 2-03 tab, l 15:00: Route: PO, [place] Drug form: ERTAB, Daily, Dosing Weight 92.273, kg, Start date: 07/24/16 9:00:00 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, Duration: 30 day, Stop date: 08/22/16 9:00:00 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 24 HR No Notes: Memoria Divalproex 2-03 [...] form: ERTAB, Daily, Start date: 07/24/16 9:00:00 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, Duration: 30 day, Stop date: 08/22/16 9:00:00 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 Insulin No Notes: Memoria Glargine 2-03 Same [...] oria 2-03 tab, l 15:00: Route: PO, [place] Drug form: ERTAB, Daily, Dosing Weight 92.273, kg, Start date: 07/24/16 9:00:00 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, Duration: 30 day, Stop date: 08/22/16 9:00:00 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 24 HR No Notes: Memoria Divalproex 2-03 (Same as: l Sodium 500 15:00: Depakote Her braedn MG Extended 00 ER) Release Tablet [Depakote] gabapentin No Notes: Memor ia 300 MG Oral 2-03 (Same as: l Capsule 15:00: Neurontin) Herm naeem Aspirin 81 No Notes: Memor ia MG Chewable 2-03 Take with l Tablet 15:00: food. [place] 00 Lasix No Notes: Memoria 2-03 (Same as: l 15:00: Lasix) MEDICATION WASTE Product Size: 40 mg Product Wasted: ___ mg Zoloft No Notes: Memoria 2-03 (Same as: l 15:00: Zoloft) Vin Protonix No Notes: Memoria 2-03 Tablet l 15:00: should not [place] 00 be chewed or crushed. (Same as: Protonix) metoprolol No 100 mg, 2 Me moria extended 2-03 tab, l release 15:00: Route: PO, Herm naeem Drug form: ERTAB, Daily, Start date: 07/24/16 9:00:00 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, Duration: 30 day, Stop date: 08/22/16 9:00:00 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 Insulin No Notes: Memoria Glargine 2-03 Same [...] Weight 92.273, kg, Start date: 07/24/16 9:00:00 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, Duration: 30 day, Stop date: 08/22/16 9:00:00 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 24 HR No Notes: Memoria Divalproex 2-03 [...] Memoria 2-03 Tablet l 15:00: should not [place] 00 be chewed or crushed. (Same as: Protonix) metoprolol No 100 mg, 2 Me moria extended 2-03 tab, l release 15:00: Route: PO, Herm naeem Drug form: ERTAB, Daily, Start date: 07/24/16 9:00:00 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, Duration: 30 day, Stop date: 08/22/16 9:00:00 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 Insulin No Notes: Memoria Glargine 2-03 Same [...] janice 2-03 (Same as: l 14:50: Zofran) [place] 00 MEDICATION WASTE Product Size: 4 mg Product Wasted: ___ mg Morphine No Notes: Memoria 2-03 (Same l 14:50: as:MORPhin [place] 00 e Sulfate) Ondansetron No Notes: Mendoza janice 2-03 (Same as: l 14:50: Zofran) [place] 00 MEDICATION WASTE Product Size: 4 mg Product Wasted: ___ mg Morphine No Notes: Memoria 2-03 (Same l 14:50: as:MORPhin Vin 00 e Sulfate) Ondansetron No Notes: Mendoza janice 2-03 (Same as: l 14:50: Zofran) Vin 00 MEDICATION WASTE Product Size: 4 mg Product Wasted: ___ mg Morphine No Notes: Memoria 2-03 (Same l 14:50: as:MORPhin [place] 00 e Sulfate) Insulin, No Notes: Memoria [...] Roll in l Human 13:30: palms of [place] 00 hands gently; Do not shake vigorously . (Same as: NovoLOG) "single patient use only" WASTE: F/P - Black; E - Municipal Trash Bin Stable for 28 days at room temperatur e. Expires in days from ____Date Dilaudid No Notes: Memoria 2-03 Same as l 11:28: Dilaudid Vin 00 Dilaudid No Notes: Memoria 2-03 Same as l 11:28: Dilaudid [place] 00 Dilaudid No Notes: Memoria 2-03 Same as l 11:28: Dilaudid Vin 00 Dilaudid No Notes: Memoria 2-03 Same as l 11:28: Dilaudid [place] 00 Dilaudid No Notes: Memoria 2-03 Same as l 11:28: Dilaudid [place] 00 Insulin, No Notes: Memoria Aspart, 2-03 Roll in l Human 08:40: palms of [place] 00 hands gently; Do not shake vigorously [...] Blood Glucose Results, Start date: 07/24/16 2:40:00 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, Duration: 30 day, Stop date: 08/23/16 2:39:00 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 Dextrose No 25 gm, 50 Mendoza janice 50% Syringe 2-03 mL, Route: l 08:40: IVP, Drug Vin 00 Form: INJ, Dosing Weight 92.273, kg, PRN, PRN Blood Glucose Results, Start date: 07/24/16 2:40:00 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, Duration: 30 day, Stop date: 08/23/16 2:39:00 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 Insulin, No Notes: Memoria Aspart, 2-03 Roll [...] 2-03 Route: IM, l 08:40: Drug form: [place] 00 PDR/INJ, PRN, Dosing Weight 92.273, kg, PRN Blood Glucose Results, Start date: 07/24/16 2:40:00 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, Duration: 30 day, Stop date: 08/23/16 2:39:00 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 Dextrose 2016-0 No 25 gm, 50 Mendoza janice 50% Syringe 2-03 mL, Route: l 08:40: IVP, Drug Vin 00 Form: INJ, Dosing Weight 92.273, kg, PRN, PRN Blood Glucose Results, Start date: 07/24/16 2:40:00 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, Duration: 30 day, Stop date: 08/23/16 2:39:00 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 Insulin, 2016-0 No Notes: Memoria Aspart, 2- Roll in l Human 08:40: palms of [place] 00 hands gently; Do not shake vigorously . (Same as: NovoLOG) "single patient use only" WASTE: F/P - Black; E - Municipal Trash Bin Stable for 28 days at room [facility] e. Expires in days from ____Date Glucagon 2016-0 No 1 mg, Memoria 2-03 Route: IM, l 08:40: Drug form: Vin 00 PDR/INJ, PRN, Dosing Weight 92.273, kg, PRN Blood Glucose Results, Start date: 07/24/16 2:40:00 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, Duration: 30 day, Stop date: 08/23/16 2:39:00 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 Dextrose 2017-0 No 25 gm, 50 Mendoza janice 50% Syringe 2-03 mL, Route: l 08:40: IVP, Drug Vin 00 Form: INJ, Dosing Weight 92.273, kg, PRN, PRN Blood Glucose Results, Start date: 07/24/16 2:40:00 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, Duration: 30 day, Stop date: 08/23/16 2:39:00 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 Insulin, 2017-0 No Notes: Memoria Aspart, 2-03 [...] Blood Glucose Results, Start date: 07/24/16 2:40:00 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, Duration: 30 day, Stop date: 08/23/16 2:39:00 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 Dextrose 2017-0 No 25 gm, 50 Mendoza janice 50% Syringe 2-03 mL, Route: l 08:40: IVP, Drug [place] 00 Form: INJ, Dosing Weight 92.273, kg, PRN, PRN Blood Glucose Results, Start date: 07/24/16 2:40:00 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, Duration: 30 day, Stop date: 08/23/16 2:39:00 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 Insulin, 2017-0 No Notes: Memoria Aspart, 2-03 Roll in l Human 08:40: palms of [place] 00 hands gently; Do not shake vigorously [...] Blood Glucose Results, Start date: 07/24/16 2:40:00 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, Duration: 30 day, Stop date: 08/23/16 2:39:00 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 Dextrose 2017-0 No 25 gm, 50 Mendoza janice 50% Syringe 2-03 mL, Route: l 08:40: IVP, Drug [place] 00 Form: INJ, Dosing Weight 92.273, kg, PRN, PRN Blood Glucose Results, Start date: 07/24/16 2:40:00 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, Duration: 30 day, Stop date: 08/23/16 2:39:00 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 Docusate 2016- No Notes: Memoria 2-03 (Same as: l 07:20: Colace) [place] 00 (Do Not Crush) Ondansetron No Notes: Mendoza janice 2-03 (Same as: l 07:20: Zofran) [place] 00 MEDICATION WASTE Product Size: 4 mg Product Wasted: ___ mg Docusate 2016- No Notes: Memoria 2-03 (Same as: l 07:20: Colace) [place] 00 (Do Not Crush) Ondansetron 2016- No Notes: Mendoza janice 2-03 (Same as: l 07:20: Zofran) [place] 00 MEDICATION WASTE Product Size: 4 mg Product Wasted: ___ mg Docusate 2016- No Notes: Memoria 2-03 (Same as: l 07:20: Colace) [place] 00 (Do Not Crush) Ondansetron No Notes: Mendoza janice 2-03 (Same as: l 07:20: Zofran) Vin 00 MEDICATION WASTE Product Size: 4 mg Product Wasted: ___ mg Docusate 2016- No Notes: Memoria 2-03 (Same as: l 07:20: Colace) [place] 00 (Do Not Crush) Ondansetron 2016- No Notes: Mendoza janice 2-03 (Same as: l 07:20: Zofran) [place] 00 MEDICATION WASTE Product Size: 4 mg Product Wasted: ___ mg Docusate 2016-0 No Notes: Memoria 2-03 (Same as: l 07:20: Colace) Vin 00 (Do Not Crush) Ondansetron 2016-0 No Notes: Mendoza janice 2-03 (Same as: l 07:20: Zofran) [place] 00 MEDICATION WASTE Product Size: 4 mg Product Wasted: ___ mg Lasix 2016- No Notes: Memoria 2-03 (Same as: l 06:01: Lasix) Vin 00 MEDICATION WASTE Product Size: 40 mg Product Wasted: ___ mg Lasix No Notes: Memoria 2-03 (Same as: l 06:01: Lasix) [place] 00 MEDICATION WASTE Product Size: 40 mg Product Wasted: ___ mg Lasix No Notes: Memoria 2-03 (Same as: l 06:01: Lasix) [place] 00 MEDICATION WASTE Product Size: 40 mg Product Wasted: ___ mg Lasix No Notes: Memoria 2-03 (Same as: l 06:01: Lasix) Vin 00 MEDICATION WASTE Product Size: 40 mg Product Wasted: ___ mg Lasix No Notes: Memoria 2-03 (Same as: l 06:01: Lasix) [place] 00 MEDICATION WASTE Product Size: 40 mg [...] 2-03 (Same as: l / 04:09: Duoneb) [place] Ipratropium 00 Kendrick 0.167 MG/ML Inhalant Solution [DuoNeb] Albuterol No Notes: Memori a 0.833 MG/ML 2- (Same as: :: Duoneb) [place] Ipratropium 00 Kendrick 0.167 MG/ML Inhalant Solution [DuoNeb] Albuterol No Notes: Memori a 0.833 MG/ML 2 (Same as: :: Duoneb) Vin Ipratropium 00 Kendrick 0.167 MG/ML Inhalant Solution [DuoNeb] Albuterol No Notes: Memori a 0.833 MG/ML 2 (Same as: :: Duoneb) [place] Ipratropium 00 Kendrick 0.167 MG/ML Inhalant Solution [DuoNeb] Albuterol No Notes: Memori a 0.833 MG/ML 07-24 (Same as: :: Duoneb) [place] Ipratropium 00 Kendrick 0.167 MG/ML Inhalant Solution [DuoNeb] Furosemide 2015-06 Yes 80 mg = 2 Me moria 40 MG Oral 2-26 tab, PO, l Tablet 16:34: BID, # 120 Nidia nn 00 tab, 0 Refill(s) atorvastati 2015-06 Yes 40 mg = 1 M emoria n 40 mg 2-26 tab, PO, l oral tablet 16:34: Bedtime, # [place] 00 30 tab, 0 Refill(s) Insulin 2015-06 [...] INHALATION l 0.09 16:34: , PRN, PRN [place] MG/ACTUAT 00 as needed Metered for Dose wheezing, Inhaler use as needed for shortness of breath or wheezing, # 8 gm, 0 Refill(s) Aspirin 81 2015-06 Yes 81 mg = 1 Me moria MG Chewable 2-26 tab, PO, l Tablet 16:34: Daily, # [place] 00 30 tab, 0 Refill(s) Hydroxyzine 2015-06 Yes 50 mg = 1 M emoria Hydrochlori 2-26 cap, PO, l de 50 MG 16:34: TID, X 30 Herm naeem Oral 00 day, # 90 Capsule cap, 0 Refill(s) losartan 25 2015-06 Yes 25 mg = 1 M emoria mg oral 2-26 tab, PO, l tablet 16:34: Daily, # [place] 00 30 tab, 0 Refill(s) Furosemide 2015-06 Yes 80 mg = 2 Me moria 40 MG Oral 2-26 tab, PO, l Tablet 16:34: BID, # 120 Nidia nn 00 tab, 0 Refill(s) atorvastati 2015-06 Yes 40 mg = 1 M emoria n 40 mg 2-26 tab, PO, l oral tablet 16:34: Bedtime, # [place] 00 30 tab, 0 Refill(s) Insulin 2015-06 [...] INHALATION l 0.09 16:34: , PRN, PRN [place] MG/ACTUAT 00 as needed Metered for Dose [...] tab, PO, l tablet 16:34: Daily, # [place] 00 30 tab, 0 Refill(s) Furosemide 2015-06 Yes 80 mg = 2 Me moria 40 MG Oral 2-26 tab, PO, l Tablet 16:34: BID, # 120 Nidia nn 00 tab, 0 Refill(s) atorvastati 2015-06 Yes 40 mg = 1 M emoria n 40 mg 2-26 tab, PO, l oral tablet 16:34: Bedtime, # [place] 00 30 tab, 0 Refill(s) Insulin 2015-06 [...] INHALATION l 0.09 16:34: , PRN, PRN [place] MG/ACTUAT 00 as needed Metered for Dose [...] tab, PO, l tablet 16:34: Daily, # [place] 00 30 tab, 0 Refill(s) Furosemide 2015-06 Yes 80 mg = 2 Me moria 40 MG Oral 2-26 tab, PO, l Tablet 16:34: BID, # 120 Nidia nn 00 tab, 0 Refill(s) atorvastati 2015-06 Yes 40 mg = 1 M emoria n 40 mg 2-26 tab, PO, l oral tablet 16:34: Bedtime, # [place] 00 30 tab, 0 Refill(s) Insulin 2015-06 [...] INHALATION l 0.09 16:34: , PRN, PRN [place] MG/ACTUAT 00 as needed Metered for Dose wheezing, Inhaler use as needed for shortness of breath or wheezing, # 8 gm, 0 Refill(s) Aspirin 81 2015-06 Yes 81 mg = 1 Me moria MG Chewable 2-26 tab, PO, l Tablet 16:34: Daily, # [place] 00 30 tab, 0 Refill(s) Hydroxyzine 2015-06 [...] tab, PO, l Tablet 16:34: Daily, # [place] 00 30 tab, 0 Refill(s) Hydroxyzine 2015-06 [...] 2-26 (Same as: l 15:00: Lasix) October [place] cause GI upset. Give with food or milk. ix 2015-06 No Notes: Memoria 2-26 (Same as: l 15:00: Lasix) October [place] cause GI upset. Give with food or milk. Lasix 2015-06 No Notes: Memoria 2-26 (Same as: l 15:00: Lasix) October Vin cause GI upset. Give with food or milk. Lasix 2015-06 No Notes: Memoria 2-26 (Same as: l 15:00: Lasix) October Vin cause GI upset. Give with food or milk. Magnesium 2015-06 No Notes: Memori a Oxide 2-24 (Same as: l 13:36: Mag-Ox [place] 00 400) Magnesium oxide 563wr=397m g elemental magnesium Dose=____m g magnesium oxide (___mg elemental magnesium) Magnesium 2015-06 No Notes: Memori a Oxide 2-24 (Same as: l 13:36: Mag-Ox Vin 00 400) Magnesium oxide 692sd=765r g elemental magnesium Dose=____m g magnesium oxide (___mg elemental magnesium) Magnesium 2015-06 No Notes: Memori a Oxide 2-24 (Same as: l 13:36: Mag-Ox [place] 00 400) Magnesium oxide 143qk=457a g elemental magnesium Dose=____m g magnesium oxide (___mg elemental magnesium) Magnesium 2015-06 No Notes: Memori a Oxide 2-24 (Same as: l 13:36: Mag-Ox Vin 00 400) Magnesium oxide 438lb=830a g elemental magnesium Dose=____m g magnesium oxide (___mg elemental magnesium) Magnesium 2015-06 No Notes: Memori a Oxide 2-24 (Same as: l 13:36: [facility]-Ox Vin 400) Magnesium oxide 350fk=924k g elemental magnesium Dose=____m g magnesium oxide (___mg elemental magnesium) Magnesium 2015-06 No Notes: Memori a Oxide 2-24 (Same as: l 09:47: [facility] Magnesium oxide 891yn=827w g elemental magnesium Dose=____m g magnesium oxide (___mg elemental magnesium) Magnesium 2015-06 No Notes: Memori a Oxide 2-24 (Same as: l 09:47: [facility]-Ox [place] 400) Magnesium oxide 307ku=828z g elemental magnesium Dose=____m g magnesium oxide (___mg elemental magnesium) Magnesium 2015-06 No Notes: Memori a Oxide 2-24 (Same as: l 09:47: [facility] Magnesium oxide 885px=594x g elemental magnesium Dose=____m g magnesium oxide (___mg elemental magnesium) Magnesium 2015-06 No Notes: Memori a Oxide 2-24 (Same as: l :47: [facility]- [place] 400) Magnesium oxide 808dr=224v g elemental magnesium Dose=____m g magnesium oxide (___mg elemental magnesium) Magnesium 2015-06 No Notes: Memori a Oxide 2-24 (Same as: l 09:47: [facility]- Vin 400) Magnesium oxide 055id=723f g elemental magnesium Dose=____m g magnesium oxide [...] Memoria 2-24 (Same as: l 00:00: Norvasc) [place] 00 Wellbutrin 2015-06 No Notes: Memor ia XL 2-24 (Same as: l 00:00: Wellbutrin Vin 00 XL) "Do Not Crush" Norvasc 2015-06 No Notes: Memoria 2-24 (Same as: l 00:00: Norvasc) [place] 00 Wellbutrin 2015-06 No Notes: Memor ia XL 2-24 (Same as: l 00:00: Wellbutrin [place] 00 XL) "Do Not Crush" Norvasc 2015-06 No Notes: Memoria 2-24 (Same as: l 00:00: Norvasc) [place] 00 Wellbutrin 2015-06 No Notes: Memor ia XL 2-24 (Same as: l 00:00: Wellbutrin Vni 00 XL) [facility] No Notes: Memoria 2-24 (Same as: l 00:00: Norvasc) [place] 00 Wellbutrin 2015-06 No Notes: Memor ia XL 2-24 (Same as: l 00:00: Wellbutrin Vin 00 XL) "[facility]" [facility] No Notes: Memoria 2-24 (Same as: l 00:00: Norvasc) [place] 00 Insulin 2015-06 No Notes: Memoria Glargine [...] tab, PO, l tablet 15:35: Daily, 0 [place] 00 Refill(s) pravastatin 2015-06 No 40 mg = 1 M emoria 40 mg oral 2-23 tab, PO, l tablet 15:35: Daily, 0 [place] 00 Refill(s) amLODIPine 2015-06 No 10 mg = 1 Me moria 10 mg oral 2-23 tab, PO, l tablet 15:35: Daily, 0 Vin 00 Refill(s) pravastatin 2015-06 No 40 mg = 1 M emoria 40 mg oral 2-23 tab, PO, l tablet 15:35: Daily, 0 [place] 00 Refill(s) amLODIPine 2015-06 No 10 mg = 1 Me moria 10 mg oral 2-23 tab, PO, l tablet 15:35: Daily, 0 [place] 00 Refill(s) pravastatin 2015-06 No 40 mg = 1 M emoria 40 mg oral 2-23 tab, PO, l tablet 15:35: Daily, 0 [place] 00 Refill(s) amLODIPine 2015-06 No 10 mg = 1 Me moria 10 mg oral 2-23 tab, PO, l tablet 15:35: Daily, 0 [place] 00 Refill(s) pravastatin 2015-06 No 40 mg = 1 M emoria 40 mg oral 2-23 tab, PO, l tablet 15:35: Daily, 0 [place] 00 Refill(s) amLODIPine 2015-06 No 10 mg = 1 Me moria 10 mg oral 2-23 tab, PO, l tablet 15:35: Daily, 0 [place] 00 Refill(s) pravastatin 2015-06 No 40 mg = 1 M emoria 40 mg oral 2-23 tab, PO, l tablet 15:35: Daily, 0 [place] 00 Refill(s) Sertraline 2015-06 Yes 200 mg [...] AND 1 l Capsule 15:27: CAP AT [place] 00 BEDTIME, 0 Refill(s) Insulin, 2015-06 No [...] AND 1 l Capsule 15:27: CAP AT [place] 00 BEDTIME, 0 Refill(s) Insulin, 2015-06 No [...] tab, PO, l Tablet 15:27: Daily, 0 [place] [Zoloft] 00 Refill(s) pantoprazol 2015-06 Yes 40 mg = 1 M emoria e 40 MG 2-23 tab, PO, l Enteric 15:27: Daily, 0 Jake n Coated 00 Refill(s) Tablet [Protonix] gabapentin 2015-06 Yes 1 CAP PO Mem oria 300 MG Oral 2-23 BID AND 1 l Capsule 15:27: CAP AT [place] 00 BEDTIME, 0 Refill(s) Insulin, 2015-06 No [...] AND 1 l Capsule 15:27: CAP AT [place] 00 BEDTIME, 0 Refill(s) Insulin, 2015-06 No [...] tab, PO, l Tablet 15:27: Daily, 0 [place] [Zoloft] 00 Refill(s) pantoprazol 2015-06 Yes 40 mg = 1 M emoria e 40 MG 2-23 tab, PO, l Enteric 15:27: Daily, 0 Jake n Coated 00 Refill(s) Tablet [Protonix] gabapentin 2015-06 Yes 1 CAP PO Mem oria 300 MG Oral 2-23 BID AND 1 l Capsule 15:27: CAP AT [place] 00 BEDTIME, 0 Refill(s) Insulin, 2015-06 No [...] Memori a 2-22 (Same l 19:00: as:Chronul [place]) Lactulose 2015-06 No Notes: Memori a 2-22 [...] Weight 86.364, kg, Start date: 06/11/16 9:00:00 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, Duration: 30 day, Stop date: 07/10/16 9:00:00 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 Insulin 2015-06 No Notes: Memoria Glargine 2-22 [...] Weight 86.364, kg, Start date: 06/11/16 9:00:00 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, Duration: 30 day, Stop date: 07/10/16 9:00:00 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 Insulin 2015-06 No Notes: Memoria Glargine 2-22 [...] Weight 86.364, kg, Start date: 06/11/16 9:00:00 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, Duration: 30 day, Stop date: 07/10/16 9:00:00 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 Insulin 2015-06 No Notes: Memoria Glargine 2-22 [...] Weight 86.364, kg, Start date: 06/11/16 9:00:00 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, Duration: 30 day, Stop date: 07/10/16 9:00:00 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 Insulin 2015-06 No Notes: Memoria Glargine 2-22 [...] Weight 86.364, kg, Start date: 06/11/16 9:00:00 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, Duration: 30 day, Stop date: 07/10/16 9:00:00 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 Insulin 2015-06 No Notes: Memoria Glargine 2-22 [...] Roll in l Human 12:55: palms of [place] 00 hands gently; Do not shake vigorously [...] Roll in l Human 12:55: palms of [place] 00 hands gently; Do not shake vigorously [...] sodium, 2-22 porcine l porcine 06:00: heparin [place] 2500 UNT/ML 00 Injectable Solution heparin 2015-06 No Notes: Memoria sodium, 2-22 porcine l porcine 06:00: heparin [place] 2500 UNT/ML 00 Injectable Solution heparin 2015-06 No Notes: Memoria sodium, 2-22 porcine l porcine 06:00: heparin [place] 2500 UNT/ML 00 Injectable Solution heparin 2015-06 No Notes: Memoria sodium, 2-22 porcine l porcine 06:00: heparin Vin 2500 UNT/ML 00 Injectable Solution heparin 2015-06 No Notes: Memoria sodium, 2-22 porcine l porcine 06:00: heparin Vin 2500 UNT/ML 00 Injectable Solution Albuterol 2015-06 No Notes: Memori a 0.833 MG/ML 2-22 (Same as: l / 03:00: Duoneb) [place] Ipratropium 00 Kendrick 0.167 MG/ML Inhalant Solution [DuoNeb] gabapentin 2015-06 No 300 mg, Mendoza janice 300 MG Oral 2-22 Route: PO, l Capsule 03:00: Drug form: Herm naeem 00 CAP, Q12H, Dosing Weight 86.364, kg, (CrCl 30 - 59 ml/min), Start date: 06/10/16 21:00:00 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, Duration: 30 day, Stop date: 07/10/16 9:00:00 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 divalproex 2015-06 No Notes: Memor ia sodium 2-22 (Same as: l 03:00: Depakote [place] 00 ER) Once daily dosing; indicated for migraines. Divalproex sodium extended-r elease tab. Do not chew or crush. "Do Not Crush" Losartan 2015-06 No Notes: Memoria 2-22 (Same as: l 03:00: Cozaar) [place] 00 Albuterol 2015-06 No Notes: Memori a 0.833 MG/ML 2-22 (Same as: l 03:00: Duoneb) [place] Ipratropium 00 Kendrick 0.167 MG/ML Inhalant Solution [DuoNeb] gabapentin 2015-06 No 300 mg, Mendoza janice 300 MG Oral 2-22 Route: PO, l Capsule 03:00: Drug form: Herm naeem 00 CAP, Q12H, Dosing Weight 86.364, kg, (CrCl 30 - 59 ml/min), Start date: 06/10/16 21:00:00 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, Duration: 30 day, Stop date: 07/10/16 9:00:00 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 divalproex 2015-06 No Notes: Memor ia sodium 2-22 (Same as: l 03:00: Depakote Vin 00 ER) Once daily dosing; indicated for migraines. Divalproex sodium extended-r elease tab. Do not chew or crush. "Do Not Crush" Losartan 2015-06 No Notes: Memoria 2-22 (Same as: l 03:00: Cozaar) [place] Albuterol 2015-06 No Notes: Memori a 0.833 MG/ML 2-22 (Same as: 03:00: Duoneb) Vin Ipratropium 00 Kendrick 0.167 MG/ML Inhalant Solution [DuoNeb] gabapentin 2015-06 No 300 mg, Mendoza janice 300 MG Oral 2-22 Route: PO, l Capsule 03:00: Drug form: Herm naeem 00 CAP, Q12H, Dosing Weight 86.364, kg, (CrCl 30 - 59 ml/min), Start date: 06/10/16 21:00:00 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, Duration: 30 day, Stop date: 07/10/16 9:00:00 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 divalproex 2015-06 No Notes: Memor ia sodium 2-22 (Same as: l 03:00: Depakote Vin 00 ER) Once daily dosing; indicated for migraines. Divalproex sodium extended-r elease tab. Do not chew or crush. "Do Not Crush" Losartan 2015-06 No Notes: Memoria 2-22 (Same as: l 03:00: Cozaar) Vin Albuterol 2015-06 No Notes: Memori a 0.833 MG/ML 2-22 (Same as: 03:: Duoneb) [place] Ipratropium 00 Kendrick 0.167 MG/ML Inhalant Solution [DuoNeb] gabapentin 2015-06 No 300 mg, Mendoza janice 300 MG Oral 2-22 Route: PO, l Capsule 03:00: Drug form: Herm naeem 00 CAP, Q12H, Dosing Weight 86.364, kg, (CrCl 30 - 59 ml/min), Start date: 06/10/16 21:00:00 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, Duration: 30 day, Stop date: 07/10/16 9:00:00 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 divalproex 2015-06 No Notes: Memor ia sodium 2-22 (Same as: l 03:00: Depakote Vin 00 ER) Once daily dosing; indicated for migraines. Divalproex sodium extended-r elease tab. Do not chew or crush. "Do Not Crush" Losartan 2015-06 No Notes: Memoria 2-22 (Same as: l 03:00: Cozaar) Vin Albuterol 2015-06 No Notes: Memori a 0.833 MG/ML 2-22 (Same as: / 03:00: Duoneb) Ipratropium 00 Kendrick 0.167 MG/ML Inhalant Solution [DuoNeb] gabapentin 2015-06 No 300 mg, Mendoza janice 300 MG Oral 2-22 Route: PO, l Capsule 03:00: Drug form: Herm naeem CAP, Q12H, Dosing Weight 86.364, kg, (CrCl 30 - 59 ml/min), Start date: 06/10/16 21:00:00 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, Duration: 30 day, Stop date: 07/10/16 9:00:00 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 divalproex 2015-06 No Notes: Memor ia sodium [...] Blood Glucose Results, Start date: 06/10/16 18:50:00 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, Duration: 30 day, Stop date: 07/10/16 18:49:00 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 Glucagon 2015-06 No 1 mg, Memoria 2-22 Route: IM, l 00:50: Drug form: PDR/INJ, PRN, Dosing Weight 86.364, kg, PRN Blood Glucose Results, Start date: 06/10/16 18:50:00 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, Duration: 30 day, Stop date: 07/10/16 18:49:00 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 Insulin, 2015-06 No Notes: Memoria Aspart, 2-22 Roll in l Human 00:50: palms of [place] 00 hands gently; Do not shake vigorously . (Same as: NovoLOG) "single patient use only" WASTE: F/P - Black; E - Municipal Trash Bin Stable for 28 days at room temperatur e. Expires in days from ____Date Dextrose 2015-06 No 12.5 gm, Memor ia 50% Syringe 2-22 25 mL, l 00:50: Route: [place] 00 IVP, Drug Form: INJ, Dosing Weight 86.364, kg, PRN, PRN Blood Glucose Results, Start date: 06/10/16 18:50:00 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, Duration: 30 day, Stop date: 07/10/16 18:49:00 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 Glucagon 2015-06 No 1 mg, Memoria 2-22 Route: IM, l 00:50: Drug form: [place] 00 PDR/INJ, PRN, Dosing Weight 86.364, kg, PRN Blood Glucose Results, Start date: 06/10/16 18:50:00 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, Duration: 30 day, Stop date: 07/10/16 18:49:00 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 Insulin, 2015-06 No Notes: Memoria Aspart, 2-22 Roll in l Human 00:50: palms of [place] 00 hands gently; Do not shake vigorously . (Same as: NovoLOG) "single patient use only" WASTE: F/P - Black; E - Municipal Trash Bin Stable for 28 days at room temperatur e. Expires in days from ____Date Dextrose 2015-06 No 12.5 gm, Memor ia 50% Syringe 2-22 25 mL, l 00:50: Route: [place] 00 IVP, Drug Form: INJ, Dosing Weight 86.364, kg, PRN, PRN Blood Glucose Results, Start date: 06/10/16 18:50:00 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, Duration: 30 day, Stop date: 07/10/16 18:49:00 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 Glucagon 2015-06 No 1 mg, Memoria 2-22 Route: IM, l 00:50: Drug form: [place] 00 PDR/INJ, PRN, Dosing Weight 86.364, kg, PRN Blood Glucose Results, Start date: 06/10/16 18:50:00 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, Duration: 30 day, Stop date: 07/10/16 18:49:00 [employer]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 Insulin, 2015-06 No Notes: Memoria Aspart, 2-22 [...] Syringe 2-22 25 mL, l 00:50: Route: [place] 00 IVP, Drug Form: INJ, Dosing Weight 86.364, kg, PRN, PRN Blood Glucose Results, Start date: 06/10/16 18:50:00 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, Duration: 30 day, Stop date: 07/10/16 18:49:00 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 Glucagon 2015-06 No 1 mg, Memoria 2-22 Route: IM, l 00:50: Drug form: Vin 00 PDR/INJ, PRN, Dosing Weight 86.364, kg, PRN Blood Glucose Results, Start date: 06/10/16 18:50:00 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, Duration: 30 day, Stop date: 07/10/16 18:49:00 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 Insulin, 2015-06 No Notes: Memoria Aspart, 2-22 [...] Syringe 2-22 25 mL, l 00:50: Route: [place] 00 IVP, Drug Form: INJ, Dosing Weight 86.364, kg, PRN, PRN Blood Glucose Results, Start date: 06/10/16 18:50:00 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, Duration: 30 day, Stop date: 07/10/16 18:49:00 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 Glucagon 2015-06 No 1 mg, Memoria 2-22 Route: IM, l 00:50: Drug form: Vin 00 PDR/INJ, PRN, Dosing Weight 86.364, kg, PRN Blood Glucose Results, Start date: 06/10/16 18:50:00 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, Duration: 30 day, Stop date: 07/10/16 18:49:00 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 Hydralazine 2015-06 No Notes: Mendoza janice 2-22 (Same as: l 00:36: Apresoline [place] 00 ) Push over 5 minutes Hydralazine 2015-06 No Notes: Mendoza janice 2-22 (Same as: l 00:36: Apresoline [place] 00 ) Push over 5 minutes Hydralazine 2015-06 No Notes: Mendoza janice 2-22 (Same as: l 00:36: Apresoline Vin 00 ) Push over 5 minutes Hydralazine 2015-06 No Notes: Mendoza janice 2-22 (Same as: l 00:36: Apresoline [place] 00 ) Push over 5 minutes Hydralazine 2015-06 No Notes: Mendoza janice 2-22 (Same as: l 00:36: Apresoline [place] 00 ) Push over 5 minutes Hydralazine 2015-06 No Notes: Mendoza janice 2-22 (Same as: l 00:34: Apresoline Vin 00 ) May interfere w/enteral feedings Take With Food Hydralazine 2015-06 No Notes: Mendoza janice 2-22 (Same as: l 00:34: Apresoline [place] 00 ) May interfere w/enteral feedings Take [...] janice 2-22 (Same as: l 00:34: Apresoline [place] 00 ) May interfere w/enteral feedings Take [...] Weight 86.364, kg, Start date: 06/10/16 18:06:00 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, Stop date: 06/10/16 18:06:00 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 Hydralazine 2015-06 No 10 mg, Mendoza janice 2-22 Route: IV, l 00:06: ONCE, Dosing Weight 86.364, kg, Start date: 06/10/16 18:06:00 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, Stop date: 06/10/16 18:06:00 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 Hydralazine 2015-06 No 10 mg, Mendoza janice 2-22 Route: IV, l 00:06: ONCE, Dosing Weight 86.364, kg, Start date: 06/10/16 18:06:00 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, Stop date: 06/10/16 18:06:00 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 Hydralazine 2015-06 No 10 mg, Mendoza janice 2-22 Route: IV, l 00:06: ONCE, Dosing Weight 86.364, kg, Start date: 06/10/16 18:06:00 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, Stop date: 06/10/16 18:06:00 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 Hydralazine 2015-06 No 10 mg, Mendoza janice 2-22 Route: IV, l 00:06: ONCE, Vin Dosing Weight 86.364, kg, Start date: 06/10/16 18:06:00 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, Stop date: 06/10/16 18:06:00 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 hydrOXYzine 2015-06 No Notes: Mendoza janice pamoate [...] ia 2-21 Route: l 22:32: IVP, Drug [place] 00 form: INJ, ONCE, Dosing Weight 86.364, kg, Start date: 06/10/16 16:32:00 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, Stop date: 06/10/16 16:32:00 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 Furosemide 2015-06 No 60 mg, Memor ia 2-21 Route: l 22:32: IVP, Drug Vin 00 form: INJ, ONCE, Dosing Weight 86.364, kg, Start date: 06/10/16 16:32:00 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, Stop date: 06/10/16 16:32:00 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 Furosemide 2015-06 No 60 mg, Memor ia 2-21 Route: l 22:32: IVP, Drug Vin 00 form: INJ, ONCE, Dosing Weight 86.364, kg, Start date: 06/10/16 16:32:00 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, Stop date: 06/10/16 16:32:00 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 Furosemide 2015-06 No 60 mg, Memor ia 2-21 Route: l 22:32: IVP, Drug Vin 00 form: INJ, ONCE, Dosing Weight 86.364, kg, Start date: 06/10/16 16:32:00 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, Stop date: 06/10/16 16:32:00 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 Furosemide 2015-06 No 60 mg, Memor ia 08-11 Route: l 22:32: IVP, Drug [place] 00 form: INJ, ONCE, Dosing Weight 86.364, kg, Start date: 06/10/16 16:32:00 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, Stop date: 06/10/16 16:32:00 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 Lasix 2015-06 No Notes: Memoria 08-11 (Same as: l 17:22: Lasix) Vin 00 MEDICATION WASTE Product Size: 40 mg Product Wasted: _0__ mg Albuterol 2015-06 No Notes: Memori a 0.833 MG/ML - (Same as: :: Duoneb) [place] Ipratropium 00 Kendrick 0.167 MG/ML Inhalant Solution [DuoNeb] Lasix 2015-06 No Notes: Memoria 08-11 (Same as: l :: Lasix) Vin 00 MEDICATION WASTE Product Size: 40 mg Product Wasted: _0__ mg Albuterol 2015-06 No Notes: Memori a 0.833 MG/ML - (Same as: : Duoneb) [place] Ipratropium 00 Kendrick 0.167 MG/ML Inhalant Solution [DuoNeb] Lasix 2015-06 No Notes: Memoria 08-11 (Same as: l 17:22: Lasix) [place] 00 MEDICATION WASTE Product Size: 40 mg Product Wasted: _0__ mg Albuterol 2015-06 No Notes: Memori a 0.833 MG/ML - (Same as: :22: Duoneb) Vin Ipratropium 00 Kendrick 0.167 MG/ML Inhalant Solution [DuoNeb] Lasix 2015-06 No Notes: Memoria - (Same as: l 17:22: Lasix) [place] 00 MEDICATION WASTE Product Size: 40 mg Product Wasted: _0__ mg Albuterol 2015-06 No Notes: Memori a 0.833 MG/ML -21 (Same as: : Duoneb) Vin Ipratropium 00 Kendrick 0.167 MG/ML Inhalant Solution [DuoNeb] Lasix 2015-06 No Notes: Memoria 08-11 (Same as: : Lasix) Vin 00 MEDICATION WASTE Product Size: 40 mg Product Wasted: _0__ mg Albuterol 2015-06 No Notes: Memori a 0.833 MG/ML 08-11 (Same as: : Duoneb) Vin Ipratropium 00 Kendrick 0.167 MG/ML Inhalant Solution [DuoNeb] Promethazin Yes 25 mg = 1 M emoria e 1-06 supp, OH, l Hydrochlori 14:45: Q6H, Jake n de 25 MG 00 Nausea & Rectal Vomiting, Suppository # 9 supp, [Phenergan] 0 Refill(s) Promethazin Yes 25 mg = 1 M emoria e 1-06 supp, OH, l Hydrochlori 14:45: Q6H, Jake n de 25 MG 00 Nausea & Rectal Vomiting, Suppository # 9 supp, [Phenergan] 0 Refill(s) Promethazin Yes 25 mg = 1 M emoria e 1-06 supp, OH, l Hydrochlori 14:45: Q6H, Jake n de 25 MG 00 Nausea & Rectal Vomiting, Suppository # 9 supp, [Phenergan] 0 Refill(s) Promethazin Yes 25 mg = 1 M emoria e 1-06 supp, OH, l Hydrochlori 14:45: Q6H, Jake n de 25 MG 00 Nausea & Rectal Vomiting, Suppository # 9 supp, [Phenergan] 0 Refill(s) Promethazin Yes 25 mg = 1 M emoria e 1-06 supp, OH, l Hydrochlori 14:45: Q6H, Jake n de [...] ne 06-26 Same as: l 11:48: Dilaudid [place] Hydromorpho No Notes: Mendoza janice ne 06 Same as: l 11:48: Dilaudid Vni Hydromorpho No Notes: Mendoza janice ne 06 Same as: l 11:48: Dilaudid Vin Hydromorpho No Notes: Mendoza janice ne 06-26 Same as: l 11:48: Dilaudid [place] hydrOXYzine Yes 0 Memori a pamoate 1-06 Refill(s) l 11:18: [place] Dicyclomine Yes 0 Memori a 1-06 Refill(s) l 11:18: [place] 00 hydrOXYzine Yes 0 Memori a pamoate 1-06 Refill(s) l 11:18: [place] 00 Dicyclomine Yes 0 Memori a 1-06 Refill(s) l 11:18: [place] 00 hydrOXYzine Yes 0 Memori a pamoate 1-06 Refill(s) l 11:18: [place] Dicyclomine Yes 0 Memori a 1-06 Refill(s) [...] Chloride 1-06 1,000 l 0.154 10:56: ml/hr, [place] MEQ/ML 00 Infuse Injectable Over: 2 Solution [...] Rate: 125 l 0.9% IV 04:10: ml/hr, [place] 1,000 mL 00 Infuse over: 8 hr, [...] Rate: 125 l 0.9% IV 04:10: ml/hr, [place] 1,000 mL 00 Infuse over: 8 hr, [...] No Matthew Gary 4 mg, Memoria 0-26 Maryr Route: l 04:10: IVP, ONCE, Dosing Weight 63.636, kg, Priority: STAT, Start date: 04/14/13 23:10:00, Stop date: 04/14/13 23:10:00 Sodium 2012-06 No Matthew Gary 1,000 mL, M emoria Chloride 0-26 Marry Rate: 125 l 0.9% IV 04:10: ml/hr, [place] 1,000 mL 00 Infuse over: 8 hr, [...] Rate: 125 l 0.9% IV 04:10: ml/hr, [place] 1,000 mL 00 Infuse over: 8 hr, [...] Marx Rate: 500 l 0.9% 23:45: ml/hr, [place] (Bolus) IV 00 Infuse 500 mL over: 1 hr, Route: IV, kg, Total Volume: 500, Bolus Dose, Priority: STAT, Start date: 03/14/12 18:45:00, Duration: 1 doses or times, Stop date: 03/14/12 19:44:00 Sodium 2012-0 No Hung Murillo 500 mL, Me moria Chloride 9-24 Marx Rate: 500 l 0.9% 23:45: ml/hr, [place] (Bolus) IV 00 Infuse 500 mL over: 1 hr, Route: IV, kg, Total Volume: 500, Bolus Dose, Priority: STAT, Start date: 03/14/12 18:45:00, Duration: 1 doses or times, Stop date: 03/14/12 19:44:00 ondansetron 2011-0 No Hung Murillo 4 mg, Memoria 9-24 Marx Route: l 22:19: IVP, ONCE, [place] 00 Dosing Weight 58.636, kg, Priority: STAT, [...] 9-24 Marx Rate: l 0.9% 22:19: 1,000 [place] (Bolus) IV 00 ml/hr, 500 mL Infuse over: 0.5 hr, Route: IV, kg, Total Volume: 500, Bolus dose, Priority: STAT, Start date: 03/14/12 17:19:00, Duration: 1 doses or times, Stop date: 03/14/12 17:48:00 ondansetron 2011-0 No Hung Murillo 4 mg, Memoria 9-24 Marx Route: l 22:19: IVP, ONCE, [place] 00 Dosing Weight 58.636, kg, Priority: STAT, [...] 9-24 Marx Rate: l 0.9% 22:19: 1,000 [place] (Bolus) IV 00 ml/hr, 500 mL Infuse [...] 9-24 Marx Route: l 22:19: IVP, ONCE, [place] 00 Dosing Weight 58.636, kg, For IV [...] 9-24 Marx Rate: l 0.9% 22:19: 1,000 [place] (Bolus) IV 00 ml/hr, 500 mL Infuse [...] insulin No Blake 10 unit, Mem oria isophane-WELL BLOWER 6-11 Deangelo 0.1 mL, l H 02:00: Route: [place] 00 SUB-Q, Drug form: INJ, Bedtime, Start [...] 2011-0 No Blake 10 unit, Mem oria isophane-WELL BLOWER 6-11 Deangelo 0.1 mL, l H 02:00: Brisa Route: [place] 00 SUB-Q, Drug form: INJ, Bedtime, Start date: 11/29/11 21:00:00, Duration: 30 day, Stop date: 12/28/11 21:00:00 Insulin 2011-0 No Blake 8 unit, Mendoza janice regular 6-11 Deangelo 0.08 mL, l 02:00: Brisa Route: [place] SUB-Q, Drug form: SOLN, Bedtime, Start date: [...] 2011-0 No Blake 10 unit, Mem oria isophane-WELL BLOWER 6-11 Deangelo 0.1 mL, l H 02:00: Brisa Route: [place] SUB-Q, Drug form: INJ, Bedtime, Start date: [...] 2011-0 No Blake 10 unit, Mem oria isophane-WELL BLOWER 6-11 Deangelo 0.1 mL, l H 02:00: Brisa Route: [place] SUB-Q, Drug form: INJ, Bedtime, Start date: [...] 2012-0 No Blake 10 unit, Mem oria isophane-WELL BLOWER 6-11 Deangelo 0.1 mL, l H 02:00: Route: [place] 00 SUB-Q, Drug form: INJ, Bedtime, Start date: 11/29/11 21:00:00, Duration: 30 day, Stop date: 12/28/11 21:00:00 Insulin 2011-0 No Blake 8 unit, Mendoza janice regular 6-11 Deangelo 0.08 mL, l 02:00: Brisa Route: [place] SUB-Q, Drug form: SOLN, Bedtime, Start date: [...] 6-10 Omidvar Route: l 21:33: IVP, ONCE, [place] 00 Start date: 11/29/11 16:33:00, Stop date: [...] 6-10 Omidvar tab, l 19:16: Route: PO, [place] Drug form: TAB, Q4H, PRN Pain, Start [...] 6-10 Omidvar tab, l 19:16: Route: PO, [place] 00 Drug form: TAB, Q4H, PRN Pain, Start date: 11/29/11 14:16:00, Duration: 30 day, Stop date: 12/29/11 14:15:00 Tylenol 2011-0 No [place] 650 mg, 2 Mem oria 6-10 Omidvar tab, l 19:16: Route: PO, [place] 00 Drug form: TAB, Q4H, PRN Pain, Start date: 11/29/11 14:16:00, Duration: 30 day, Stop date: 12/29/11 14:15:00 insulin 2011-0 No Blake 14 unit, Mem oria isophane-WELL BLOWER 6-10 Deangelo 0.14 mL, l H 14:00: Brisa Route: [place] SUB-Q, Drug form: INJ, Daily, Start date: [...] 2011-0 No Blake 14 unit, Mem oria isophane-WELL BLOWER 6-10 Deangelo 0.14 mL, l H 14:00: [...] 2011-0 No Blake 14 unit, Mem oria isophane-WELL BLOWER 6-10 Deangelo 0.14 mL, l H 14:00: Brisa Route: [place] SUB-Q, Drug form: INJ, Daily, Start date: 11/29/11 9:00:00, Duration: 30 day, Stop date: 12/28/11 9:00:00 Insulin 2011-0 No Blake 10 unit, Mem oria regular 6-10 Deangelo 0.1 mL, l 14:00: Brisa Route: [place] 00 SUB-Q, Drug form: SOLN, Daily, Start [...] 2011-0 No Blake 14 unit, Mem oria isophane-WELL BLOWER 6-10 Deangelo 0.14 mL, l H 14:00: Brisa Route: [place] 00 SUB-Q, Drug form: INJ, Daily, Start [...] 2011-0 No Blake 14 unit, Mem oria isophane-WELL BLOWER 6-10 Deangelo 0.14 mL, l H 14:00: Brisa Route: [place] SUB-Q, Drug form: INJ, Daily, Start date: 11/29/11 9:00:00, Duration: 30 day, Stop date: 12/28/11 9:00:00 Insulin 2011-0 No Blake 10 unit, Mem oria regular 6-10 Deangelo 0.1 mL, l 14:00: Brisa Route: [place] 00 SUB-Q, Drug form: SOLN, Daily, Start [...] 6-10 Deangelo 0.1 mL, l 06:30: Route: [place] 00 SUB-Q, Drug form: SOLN, TID-Before Meals, [...] 6-10 Deangelo 0.1 mL, l 06:30: Route: [place] 00 SUB-Q, Drug form: SOLN, TID-Before Meals, [...] Deangelo 0.1 mL, l 06:30: Brisa Route: [place] 00 SUB-Q, Drug form: SOLN, TID-Before Meals, [...] l IV 1,000 mL 06:29: Brisa ml/hr, [place] 00 Infuse over: 5 hr, Route: IV, Dosing Weight 57.273 kg, Total Volume: 1,000, Start date: 11/29/11 1:29:00, Duration: 30 day, Stop date: 12/29/11 1:28:00 normal 2011-0 No Blake 1,000 mL, Mem oria saline 0.9% 6-10 Deangelo Rate: 200 l IV 1,000 mL 06:29: Brisa ml/hr, [place] 00 Infuse over: 5 hr, Route: IV, Dosing Weight 57.273 kg, Total Volume: 1,000, Start date: 11/29/11 1:29:00, Duration: 30 day, Stop date: 12/29/11 1:28:00 normal 2011-0 No Blake 1,000 mL, Mem oria saline 0.9% 6-10 Deangelo Rate: 200 l IV 1,000 mL 06:29: Brisa ml/hr, [place] 00 Infuse over: 5 hr, Route: IV, [...] janice 6-10 Deangelo Route: IV, l 06:28: [facility] Drug form: Her braden 00 INJ, [...] janice 6-10 Deangelo Route: IV, l 06:28: [facility] Drug form: Her braden 00 INJ, [...] mL, Route: l 04:01: Brown IVP, Drug [place] 00 form: INJ, ONCE, Priority: STAT, Start date: 11/28/11 23:01:00, Stop date: 11/28/11 23:01:00 metoclopram 2012-0 No Nikki 10 mg, 2 Memoria gadiel 6-10 Sarah mL, Route: l 04:01: Brown IVP, Drug [place] 00 form: INJ, ONCE, Priority: STAT, Start date: 11/28/11 23:01:00, Stop date: 11/28/11 23:01:00 metoclopram 2012-0 No Nikki 10 mg, 2 Memoria gadiel 6-10 Sarah mL, Route: l 04:01: Brown IVP, Drug [place] 00 form: INJ, ONCE, Priority: STAT, Start [...] 2012-0 No Nikki 4 mg, 2 Mendoza janiec 6-10 Sarah mL, Route: l 02:31: Brown IVP, Drug [place] 00 form: INJ, ONCE, Priority: STAT, Start [...] mL, Route: l 02:31: Brown IVP, Drug [place] 00 form: INJ, ONCE, Priority: STAT, Start date: 11/28/11 21:31:00, Stop date: 11/28/11 21:31:00 Zofran 2011-0 No Nikki 4 mg, 2 Mendoza janice 6-10 Sarah mL, Route: l 02:31: Brown IVP, Drug Vin 00 form: INJ, ONCE, Priority: STAT, Start date: 11/28/11 21:31:00, Stop date: 11/28/11 21:31:00 NS (Bolus) No Arif Domenico 1,000 mL, Memoria IV 1,000 mL 11-27 Rate: l 22:48: 1,000 [place] 00 ml/hr, Infuse over: 1 hr, Route: IV, Dosing Weight 57.273 kg, Total Volume: 1,000, Start date: 11/28/11 17:48:00, Duration: 30 day, Stop date: 12/28/11 17:47:00 NS (Bolus) 0 No Arif Domenico 1,000 mL, Memoria IV 1,000 mL 11-27 Rate: l 22:48: 1,000 [place] 00 ml/hr, Infuse over: 1 hr, Route: IV, Dosing Weight 57.273 kg, Total Volume: 1,000, Start date: 11/28/11 17:48:00, Duration: 30 day, Stop date: 12/28/11 17:47:00 NS (Bolus) No Arif Domenico 1,000 mL, Memoria IV 1,000 mL 6- Rate: l 22:48: 1,000 [place] 00 ml/hr, Infuse over: 1 hr, Route: IV, Dosing Weight 57.273 kg, Total Volume: 1,000, Start date: 11/28/11 17:48:00, Duration: 30 day, Stop date: 12/28/11 17:47:00 NS (Bolus) No Arif Domenico 1,000 mL, Memoria IV 1,000 mL 6- Rate: l 22:48: 1,000 [place] 00 ml/hr, Infuse over: 1 hr, Route: IV, Dosing Weight 57.273 kg, Total Volume: 1,000, Start date: 11/28/11 17:48:00, Duration: 30 day, Stop date: 12/28/11 17:47:00 NS (Bolus) No Arif Domenico 1,000 mL, Memoria IV 1,000 mL 6- Rate: l 22:48: 1,000 [place] 00 ml/hr, Infuse over: 1 hr, Route: IV, Dosing Weight 57.273 kg, Total Volume: 1,000, Start date: 11/28/11 17:48:00, Duration: 30 day, Stop date: 12/28/11 17:47:00 NS (Bolus) No Arif Domenico 1,000 mL, Memoria IV 1,000 mL 6- Rate: l 20:36: 1,000 [place] 00 ml/hr, Infuse over: 1 hr, Route: IV, Dosing Weight 57.273 kg, Total Volume: 1,000, Start date: 11/28/11 15:36:00, Duration: 30 day, Stop date: 12/28/11 15:35:00 NS (Bolus) No Arif Domenico 1,000 mL, Memoria IV 1,000 mL 6-09 Rate: l 20:36: 1,000 [place] 00 ml/hr, Infuse over: 1 hr, Route: [...] 1,000 mL 11-27 Rate: l 20:36: 1,000 [place] 00 ml/hr, Infuse over: 1 hr, Route: [...] 6-09 mL, Route: l 20:35: IVP, Drug [place] 00 form: INJ, ONCE, Priority: STAT, Start date: 11/28/11 15:35:00, Stop date: 11/28/11 15:35:00 Ativan No Arif Domenico 2 mg, 1 Mem oria 6-09 mL, Route: l 20:35: IVP, Drug [place] 00 form: INJ, ONCE, Priority: STAT, Start date: 11/28/11 15:35:00, Stop date: 11/28/11 15:35:00 Ativan No Arif Domenico 2 mg, 1 Mem oria 6-09 mL, Route: l 20:35: IVP, Drug [place] 00 form: INJ, ONCE, Priority: STAT, Start date: 11/28/11 15:35:00, Stop date: 11/28/11 15:35:00 Ativan No Arif Domenico 2 mg, 1 Mem oria 6-09 mL, Route: l 20:35: IVP, Drug [place] 00 form: INJ, ONCE, Priority: STAT, Start date: 11/28/11 15:35:00, Stop date: 11/28/11 15:35:00 Novolin R Yes Hughes-Jason 8 unit, M emoria 100 3-30 [place] SUB-Q, l units/mL 17:47: Dawson Q12H, 2 He rmann injectable 42 Pu vial, solution Substituti on Allowed, SOLN Novolin R Yes Hughes-Jason 8 unit, M emoria 100 3-30 [place] SUB-Q, l units/mL 17:47: Dawson Q12H, 2 He rmann injectable 42 Pu vial, solution Substituti on Allowed, SOLN Novolin R Yes Hughes-Jason 8 unit, M emoria 100 3-30 [place] SUB-Q, l units/mL 17:47: Dawson Q12H, 2 He rmann injectable 42 Pu vial, solution Substituti on Allowed, SOLN Novolin R Yes Hughes-Jason 8 unit, M emoria 100 3-30 [place] SUB-Q, l units/mL 17:47: Dawson Q12H, 2 He rmann injectable 42 Pu vial, solution Substituti on Allowed, SOLN Novolin R Yes Hughes-Jason 8 unit, M emoria 100 3-30 [place] SUB-Q, l units/mL 17:47: Dawson Q12H, 2 He rmann injectable 42 Pu vial, solution Substituti on Allowed, SOLN Novolin N 2011- Yes Hughes-Jason 10 unit, Memoria 100 3-30 [place] SUB-Q, l units/mL 17:46: Dawson Bedtime, H ermann subcutaneou 27 Pu 10 ml, s injection Substituti on Allowed, SUSP Novolin N Yes Hughes-Jason 10 unit, Memoria 100 3-30 [place] SUB-Q, l units/mL 17:46: Dawson Bedtime, H ermann subcutaneou 27 Pu 10 ml, s injection Substituti on Allowed, SUSP Novolin N Yes Hughes-Jason 10 unit, Memoria 100 3-30 [place] SUB-Q, l units/mL 17:46: Dawson Bedtime, H ermann subcutaneou 27 Pu 10 ml, s injection Substituti on Allowed, SUSP Novolin N Yes Hughes-Jason 10 unit, Memoria 100 3-30 [place] SUB-Q, l units/mL 17:46: Dawson Bedtime, H ermann subcutaneou 27 Pu 10 ml, s injection Substituti on Allowed, SUSP Novolin N Yes Hughes-Jason 10 unit, Memoria 100 3-30 [place] SUB-Q, l units/mL 17:46: Dawson Bedtime, H ermann subcutaneou 27 Pu 10 ml, s injection Substituti on Allowed, SUSP Novolin N Yes Hugehs-Jason 14 unit, Memoria 100 3-30 [place] SUB-Q, l units/mL 17:44: Dawson QAM, 1 Her braden subcutaneou 37 Pu vial, s injection Substituti on Allowed, SUSP Novolin N Yes Hughes-Jason 14 unit, Memoria 100 3-30 [place] SUB-Q, l units/mL 17:44: Dawson QAM, 1 Her braden subcutaneou 37 Pu vial, s injection Substituti on Allowed, SUSP Novolin N Yes Hughes-Jason 14 unit, Memoria 100 3-30 [place] SUB-Q, l units/mL 17:44: Dawson QAM, 1 Her braden subcutaneou 37 Pu vial, s injection Substituti on Allowed, SUSP Novolin N 2011-0 Yes Hughes-Jason 14 unit, Memoria 100 3-30 [place] SUB-Q, l units/mL 17:44: Dawson QAM, 1 Her braden subcutaneou 37 Pu vial, s injection Substituti on Allowed, SUSP Novolin N 2011-0 Yes Hughes-Jason 14 unit, Memoria 100 3-30 [place] SUB-Q, l units/mL 17:44: Dawson QAM, 1 Her braden subcutaneou 37 Pu vial, s injection Substituti on Allowed, SUSP magnesium 2011-0 No Hughes-Jason 400 mg, 1 Memoria oxide 3-30 [place] tab, l 14:55: Dawson Route: PO, Her braden 00 Pu Drug form: TAB, ONCE, Priority: STAT, Start date: 09/18/11 9:55:00, Stop date: 09/18/11 9:55:00 magnesium 2011-0 No Hughes-Jason 400 mg, 1 Memoria oxide 3-30 [place] tab, l 14:55: Dawson Route: PO, Her braden 00 Pu Drug form: TAB, ONCE, Priority: STAT, Start date: 09/18/11 9:55:00, Stop date: 09/18/11 9:55:00 magnesium 2011-0 No Hughes-Jason 400 mg, 1 Memoria oxide 3-30 [place] tab, l 14:55: Dawson Route: PO, Her braden 00 Pu Drug form: TAB, ONCE, Priority: STAT, Start date: 09/18/11 9:55:00, Stop date: 09/18/11 9:55:00 magnesium 2011-0 No Hughes-Jason 400 mg, 1 Memoria oxide 3-30 [place] tab, l 14:55: Dawson Route: PO, Her braden 00 Pu Drug form: TAB, ONCE, Priority: STAT, Start date: 09/18/11 9:55:00, Stop date: 09/18/11 9:55:00 magnesium 2011-0 No Hughes-Jason 400 mg, 1 Memoria oxide 3-30 [place] tab, l 14:55: Dawson Route: PO, Her braden 00 Pu Drug form: TAB, ONCE, Priority: STAT, Start date: 09/18/11 9:55:00, Stop date: 09/18/11 9:55:00 Insulin 2011-0 No Hughes-Jason 8 unit, Mem oria regular 3-30 [place] 0.08 mL, l 14:22: Dawson Route: Pu SUB-Q, Drug form: SOLN, ONCE, Priority: STAT, Start date: 09/18/11 9:22:00, Stop date: 09/18/11 9:22:00 Insulin 2011-0 No Hughes-Jason 8 unit, Mem oria regular 3-30 [place] 0.08 mL, l 14:22: Dawson Route: Pu SUB-Q, Drug form: SOLN, ONCE, Priority: STAT, Start date: 09/18/11 9:22:00, Stop date: 09/18/11 9:22:00 Insulin 2011-0 No Hughes-Jason 8 unit, Mem oria regular 3-30 [place] 0.08 mL, l 14:22: Dawson Route: Pu SUB-Q, Drug form: SOLN, ONCE, Priority: STAT, Start date: 09/18/11 9:22:00, Stop date: 09/18/11 9:22:00 Insulin 2011-0 No Hughes-Jason 8 unit, Mem oria regular 3-30 [place] 0.08 mL, l 14:22: Dawson Route: Pu SUB-Q, Drug form: SOLN, ONCE, Priority: STAT, Start date: 09/18/11 9:22:00, Stop date: 09/18/11 9:22:00 Insulin 2011-0 No Hughes-Jason 8 unit, Mem oria regular 3-30 [place] 0.08 mL, l 14:22: Dawson Route: Pu SUB-Q, Drug form: SOLN, ONCE, Priority: STAT, Start date: 09/18/11 9:22:00, Stop date: 09/18/11 9:22:00 Lactated 2011-0 No Hughes-Jason 1,000 mL, Memoria Ringers 3-30 [place] Rate: l (Bolus) IV 14:16: [place] 1,000 [place] 1,000 mL 00 Pu ml/hr, Infuse over: 1 hr, Route: IV, Total Volume: 1,000, Bolus Dose, Priority: STAT, Start date: 09/18/11 9:16:00, Duration: 1 doses or times, Stop date: 09/18/11 10:15:00 Lactated 2012-0 No Hughes-Jason 1,000 mL, Memoria Ringers 3-30 [place] Rate: l (Bolus) IV 14:16: [place] 1,000 [place] 1,000 mL 00 Pu ml/hr, Infuse over: 1 hr, Route: IV, Total Volume: 1,000, Bolus Dose, Priority: STAT, Start date: 09/18/11 9:16:00, Duration: 1 doses or times, Stop date: 09/18/11 10:15:00 Lactated 2012-0 No Hughes-Jason 1,000 mL, Memoria Ringers 3-30 [place] Rate: l (Bolus) IV 14:16: [place] 1,000 [place] 1,000 mL 00 Pu ml/hr, Infuse over: 1 hr, Route: IV, Total Volume: 1,000, Bolus Dose, Priority: STAT, Start date: 09/18/11 9:16:00, Duration: 1 doses or times, Stop date: 09/18/11 10:15:00 Lactated 2012-0 No Hughes-Jason 1,000 mL, Memoria Ringers 3-30 [place] Rate: l (Bolus) IV 14:16: [place] 1,000 [place] 1,000 mL 00 Pu ml/hr, Infuse over: 1 hr, Route: IV, Total Volume: 1,000, Bolus Dose, Priority: STAT, Start date: 09/18/11 9:16:00, Duration: 1 doses or times, Stop date: 09/18/11 10:15:00 Lactated 2012-0 No Hughes-Jason 1,000 mL, Memoria Ringers 3-30 [place] Rate: l (Bolus) IV 14:16: [place] 1,000 [place] 1,000 mL 00 Pu ml/hr, Infuse over: 1 hr, Route: IV, Total Volume: 1,000, Bolus Dose, Priority: STAT, Start date: 09/18/11 9:16:00, Duration: 1 doses or times, Stop date: 09/18/11 10:15:00 Sodium 2012-0 No Hughes-Jason 1,000 mL, Me moria Chloride 3-30 [place] Rate: l 0.9% 14:06: [place] 1,000 [place] (Bolus) IV 00 Pu ml/hr, 1000 mL Infuse over: 1 hr, Route: IV, kg, Total Volume: 1,000, Bolus Dose, Priority: STAT, Start date: 09/18/11 9:06:00, Duration: 1 doses or times, Stop date: 09/18/11 10:05:00 Sodium 2012-0 No Hughes-Jason 1,000 mL, Me moria Chloride 3-30 [place] Rate: l 0.9% 14:06: [place] 1,000 [place] (Bolus) IV 00 Pu ml/hr, 1000 mL Infuse over: 1 hr, Route: IV, kg, Total Volume: 1,000, Bolus Dose, Priority: STAT, Start date: 09/18/11 9:06:00, Duration: 1 doses or times, Stop date: 09/18/11 10:05:00 Sodium 2012-0 No Hughes-Jason 1,000 mL, Me moria Chloride 3-30 [place] Rate: l 0.9% 14:06: [place] 1,000 Vin (Bolus) IV 00 Pu ml/hr, 1000 mL Infuse over: 1 hr, Route: IV, kg, Total Volume: 1,000, Bolus Dose, Priority: STAT, Start date: 09/18/11 9:06:00, Duration: 1 doses or times, Stop date: 09/18/11 10:05:00 Sodium 2012-0 No Hughes-Jason 1,000 mL, Me moria Chloride 3-30 [place] Rate: l 0.9% 14:06: Dawson 1,000 Vin (Bolus) IV 00 Pu ml/hr, 1000 mL Infuse over: 1 hr, Route: IV, kg, Total Volume: 1,000, Bolus Dose, Priority: STAT, Start date: 09/18/11 9:06:00, Duration: 1 doses or times, Stop date: 09/18/11 10:05:00 Sodium 2012-0 No Hughes-Jason 1,000 mL, Me moria Chloride 3-30 [place] Rate: l 0.9% 14:06: Dawson 1,000 [place] (Bolus) IV 00 Pu ml/hr, 1000 mL Infuse over: 1 hr, Route: IV, kg, Total Volume: 1,000, Bolus Dose, Priority: STAT, Start date: 09/18/11 9:06:00, Duration: 1 doses or times, Stop date: 09/18/11 10:05:00 sulfamethox 2012-0 Yes Substituti Memoria azole 3-30 on Allowed l 14:04: [place] 58 sulfamethox 2012-0 Yes Substituti Memoria azole 3-30 on Allowed l 14:04: [place] 58 sulfamethox 2012-0 Yes Substituti Memoria azole 3-30 on Allowed l 14:04: [place] 58 sulfamethox 2012-0 Yes Substituti Memoria azole 3-30 on Allowed l 14:04: [place] 58 sulfamethox 2012-0 Yes Substituti Memoria azole 3-30 on Allowed l 14:04: Vin 58 Sodium 2012-0 No Hughes-Jason 1,000 mL, Me moria Chloride 3-30 [place] Rate: l 0.9% 13:56: Eunice 1,000 Vin (Bolus) IV 00 Pu ml/hr, 1000 mL Infuse over: 1 hr, Route: IV, kg, Total Volume: 1,000, Bolus Dose, Priority: STAT, Start date: 09/18/11 8:56:00, Duration: 1 doses or times, Stop date: 09/18/11 9:55:00 Sodium 2012-0 No Hughes-Jason 1,000 mL, Me moria Chloride 3-30 [place] Rate: l 0.9% 13:56: Eunice 1,000 [place] (Bolus) IV 00 Pu ml/hr, 1000 mL Infuse over: 1 hr, Route: IV, kg, Total Volume: 1,000, Bolus Dose, Priority: STAT, Start date: 09/18/11 8:56:00, Duration: 1 doses or times, Stop date: 09/18/11 9:55:00 Sodium 2012-0 No Hughes-Jason 1,000 mL, Me moria Chloride 3-30 [place] Rate: l 0.9% 13:56: Eunice 1,000 [place] (Bolus) IV 00 Pu ml/hr, 1000 mL Infuse over: 1 hr, Route: IV, kg, Total Volume: 1,000, Bolus Dose, Priority: STAT, Start date: 09/18/11 8:56:00, Duration: 1 doses or times, Stop date: 09/18/11 9:55:00 Sodium 2012-0 No Hughes-Jason 1,000 mL, Me moria Chloride 3-30 [place] Rate: l 0.9% 13:56: Dawson 1,000 Vin (Bolus) IV 00 Pu ml/hr, 1000 mL Infuse over: 1 hr, Route: IV, kg, Total Volume: 1,000, Bolus Dose, Priority: STAT, Start date: 09/18/11 8:56:00, Duration: 1 doses or times, Stop date: 09/18/11 9:55:00 Sodium 2012-0 No Hughes-Jason 1,000 mL, Me moria Chloride 3-30 [place] Rate: l 0.9% 13:56: Dawson 1,000 Vin (Bolus) IV 00 Pu ml/hr, 1000 mL Infuse over: 1 hr, Route: IV, kg, Total Volume: 1,000, Bolus Dose, Priority: STAT, Start date: 09/18/11 8:56:00, Duration: 1 doses or times, Stop date: 09/18/11 9:55:00 clindamycin 2012-0 No Eber L 300 mg, 2 Memoria 3-21 Anabelle cap, l 21:00: Route: PO, [place] 00 Drug form: CAP, Q8H, Start date: 09/09/11 16:00:00, Duration: 30 day, Stop date: 10/09/11 8:00:00 clindamycin 2012-0 No Eber L 300 mg, 2 Memoria 3-21 Anabelle cap, l 21:00: Route: PO, [place] 00 Drug form: CAP, Q8H, Start date: [...] 3-21 Amelia cap, PO, l capsule 18:47: [place] BID, 60 Her braden 19 cap, Substituti on Allowed, CAP Colace 100 0 Yes Luna 100 mg, 1 Memoria mg oral 3-21 Amelia cap, PO, l capsule 18:47: [place] BID, 60 Her braden 19 cap, Substituti [...] 3-21 Amelia cap, PO, l capsule 18:47: [place] BID, 60 Her braden 19 cap, Substituti on Allowed, CAP clindamycin 2011-0 Yes Luna 300 mg, 2 Memoria 150 mg oral 3-21 Amelia cap, PO, l capsule 18:46: Aiken Q8H, 30 Her braden 55 cap, Substituti on Allowed, CAP clindamycin 2011-0 Yes Luna 300 mg, 2 Memoria 150 mg oral 3-21 Amelia cap, PO, l capsule 18:46: Aiken Q8H, 30 Her braden 55 cap, Substituti on Allowed, CAP clindamycin 2011- Yes Luna 300 mg, 2 Memoria 150 mg oral 3-21 Amelia cap, PO, l capsule 18:46: Zeeshan Q8H, 30 Her braden 55 cap, Substituti on Allowed, CAP clindamycin Yes Luna 300 mg, 2 Memoria 150 mg oral 3-21 Amelia cap, PO, l capsule 18:46: Aiken Q8H, 30 Her braden 55 cap, Substituti on Allowed, CAP clindamycin Yes Luna 300 mg, 2 Memoria 150 mg oral 3-21 Amelia cap, PO, l capsule 18:46: Aiken Q8H, 30 Her braden 55 cap, Substituti on Allowed, CAP [place] Yes Luna 1 tab, PO, Memoria 10/325 oral 3-21 Amelia Q4H, PRN, l tablet 18:46: Aiken 30 tab, Herm naeem 36 Pain, Substituti on Allowed, Maintenanc e, TAB [place] Yes Luna 1 tab, PO, Memoria 10/325 oral 3-21 Amelia Q4H, PRN, l tablet 18:46: Zeeshan 30 tab, Herm naeem 36 Pain, Substituti on Allowed, Maintenanc e, TAB [place] Yes Luna 1 tab, PO, Memoria 10/325 oral 3-21 Amelia Q4H, PRN, l tablet 18:46: Zeeshan 30 tab, Herm naeem 36 Pain, Substituti on Allowed, Maintenanc e, TAB [place] Yes Luna 1 tab, PO, Memoria 10/325 oral 3-21 Amelia Q4H, PRN, l tablet 18:46: Aiken 30 tab, Herm naeem 36 Pain, Substituti on Allowed, Maintenanc e, TAB [place] Yes Luna 1 tab, PO, Memoria 10/325 oral 3-21 Amelia Q4H, PRN, l tablet 18:46: Zeeshan 30 tab, Herm naeem 36 Pain, Substituti on Allowed, Maintenanc e, TAB [place] 2012-0 No Hollie Donavan 1 tab, Mendoza janice 10/325 oral 3-21 Mahi Route: PO, l tablet 09:00: Drug Form: Nidia nn 00 TAB, Q4H, Start date: 09/09/11 4:00:00, Duration: 30 day, Stop date: 10/09/11 0:00:00 [place] 2011-0 No Hollie Donavan 1 tab, Mendoza janice 10/325 oral 3-21 Mahi Route: PO, l tablet 09:00: Drug Form: Nidia nn 00 TAB, Q4H, Start date: 09/09/11 4:00:00, Duration: 30 day, Stop date: 10/09/11 0:00:00 [place] 0 No Hollie Donavan 1 tab, Mendoza janice 10/325 oral 3-21 Mahi Route: PO, l tablet 09:00: Drug Form: Nidia nn 00 TAB, Q4H, Start date: 09/09/11 4:00:00, Duration: 30 day, Stop date: 10/09/11 0:00:00 [place] 0 No Hollie Donavan 1 tab, Mendoza janice 10/325 oral 3-21 Mahi Route: PO, l tablet 09:00: Drug Form: Nidia nn 00 TAB, Q4H, Start date: 09/09/11 4:00:00, Duration: 30 day, Stop date: 10/09/11 0:00:00 [place] 0 No Hollie Donavan 1 tab, Mendoza [...] Stop date: 10/07/11 9:00:00 enalapril 2011-0 No Bimsark 5 mg, 1 Mem oria 3-19 Omidvar [...] moria 3-19 Josefina 0.1 mL, l 14:19: [place] Route: [place] 00 IVP, Drug form: INJ, Q2MIN, PRN [...] Josefina 0.25 mL, l 14:19: Gavin Route: [place] 00 IVP, Drug form: INJ, Q5Min, PRN [...] moria 3-19 Josefina 0.1 mL, l 14:19: [place] Route: [place] 00 IVP, Drug form: INJ, Q2MIN, PRN [...] ne 3-19 Josefina 0.25 mL, l 14:19: [place] Route: [place] 00 IVP, Drug form: INJ, Q5Min, PRN Pain Score 4-6, Start date: 09/07/11 9:19:00, Duration: 5 doses or times, Stop date: Limited # of times acetaminoph No Gayle 15 mL, M emoria en-hydrocod 3-19 Josefina Route: PO, l one 325 14:19: [place] Drug Form: He rmann mg-10 mg/15 00 [...] Josefina 0.1 mL, l 14:19: Gavin Route: [place] 00 IVP, Drug form: INJ, Q2MIN, PRN Narcotic Reversal, Start date: 09/07/11 9:19:00, Duration: 8 doses or times, Stop date: Limited # of times ondansetron No Gayle 4 mg, 2 Memoria 3-19 Josefina mL, Route: l 14:19: [place] IVP, Drug Jake n 00 form: INJ, ONCE, PRN Nausea & Vomiting, Start date: 09/07/11 9:19:00 hydromorpho No Gayle 0.5 mg, Memoria ne 3-19 Josefina 0.25 mL, l 14:19: [place] Route: Vin 00 IVP, Drug form: INJ, [...] Memoria 3-19 Josefina mL, Route: l 14:19: [place] IVP, Drug Jake n 00 form: INJ, PRN, PRN Benzodiaze pine Reversal, Initial dose, Start date: 09/07/11 9:19:00, Duration: 1 day, Stop date: 09/08/11 9:18:00 naloxone 0 No Gayle 0.04 mg, Me moria 3-19 Josefina 0.1 mL, l 14:19: [place] Route: [place] 00 IVP, Drug form: INJ, Q2MIN, PRN [...] ne 3- Josefina 0.25 mL, l 14:19: [place] Route: [place] 00 IVP, Drug form: INJ, Q5Min, PRN [...] Rate: 125 l 1,000 mL 14:06: ml/hr, [place] 00 Infuse over: 8 hr, Route: IV, Dosing Weight 68.182 kg, Total Volume: 1,000, Start date: 09/07/11 9:06:00, Duration: 30 day, Stop date: 10/07/11 9:05:00 Lactated 2011-0 No [place] 1,000 mL, Me moria Ringers IV 3-19 [place] Rate: 125 l 1,000 mL 14:06: ml/hr, [place] 00 Infuse over: 8 hr, Route: IV, [...] Rate: 125 l 1,000 mL 14:06: ml/hr, [place] 00 Infuse over: 8 hr, Route: IV, [...] Memoria 3-19 Arias Route: l 13:31: IVPB, [place] 00 ONCE, Start date: 09/07/11 8:31:00, Stop date: 09/07/11 8:31:00 clindamycin 2012-0 No Maximo R 600 mg, Memoria 3-19 Arias Route: l 13:31: IVPB, Vin 00 ONCE, Start date: 09/07/11 8:31:00, Stop date: 09/07/11 8:31:00 clindamycin 2012-0 No Maximo R 600 mg, Memoria 3-19 Arias Route: l 13:31: IVPB, [place] 00 ONCE, Start date: 09/07/11 8:31:00, Stop [...] 3-17 Wong tab, l 04:00: Route: PO, [place] 00 Drug form: ECTAB, Daily, PRN Constipati [...] Duration: 30 day, Stop date: 10/04/11 18:10:00 [place] 2012-0 No Mahammad 1 tab, Memori a 10/325 oral 3-16 Simeon Route: PO, l tablet 17:00: Dez Drug Form: Tyrel rmann 00 TAB, Q4H, Start date: 09/04/11 12:00:00, Duration: 30 day, Stop date: 10/04/11 8:00:00 [place] 2012-0 No Mahammad 1 tab, Memori a 10/325 oral 3-16 Simeon Route: PO, l tablet 17:00: Dez Drug Form: He rmann 00 TAB, Q4H, Start date: 09/04/11 12:00:00, Duration: 30 day, Stop date: 10/04/11 8:00:00 [place] 2012-0 No Mahammad 1 tab, Memori a 10/325 oral 3-16 Simeon Route: PO, l tablet 17:00: Dez Drug Form: Tyrel rmann 00 TAB, Q4H, Start date: 09/04/11 12:00:00, Duration: 30 day, Stop date: 10/04/11 8:00:00 [place] 2012-0 No Mahammad 1 tab, Memori a 10/325 oral 3-16 Simeon Route: PO, l tablet 17:00: Dez Drug Form: Tyrel rmann 00 TAB, Q4H, Start date: 09/04/11 12:00:00, Duration: 30 day, Stop date: 10/04/11 8:00:00 [place] 2012-0 No Mahammad 1 tab, Memori a [...] 10cc/hr, l - site 1 14:50: Route: [place] 400 mL 00 NERVE BLOCK, Start date: 09/04/11 9:50:00 400 mL, Duration: 30 day, Stop date: 10/04/11 9:49:00 naloxone 2012-0 No Rosalino 0.04 mg, Me moria 3-16 Kavon 0.1 mL, l 14:50: Route: [place] 00 IVP, Drug form: INJ, Q2MIN, PRN [...] 10cc/hr, l - site 1 14:50: Route: [place] 400 mL 00 NERVE BLOCK, Start date: [...] 10cc/hr, l - site 1 14:50: Route: [place] 400 mL 00 NERVE BLOCK, Start date: [...] 3-16 Kavon 0.1 mL, l 14:50: Route: [place] 00 IVP, Drug form: INJ, Q2MIN, PRN Narcotic Reversal, Start date: 09/04/11 9:50:00, Duration: 30 day, Stop date: 10/04/11 9:49:00 [place] No Bismark 1 tab, Memoria 10/325 oral 3-16 Omidvar Route: PO, l tablet 14:49: Drug Form: Nidia nn 00 TAB, Q4H, PRN Pain, Start date: 09/04/11 9:49:00, Stop date: 10/04/11 9:48:00 [place] 0 No Bism[place] 1 tab, Memoria 10/325 oral 3-16 Omidvar Route: PO, l tablet 14:49: Drug Form: Nidia nn 00 TAB, Q4H, PRN Pain, Start date: 09/04/11 9:49:00, Stop date: 10/04/11 9:48:00 [place] No Bismark 1 tab, Memoria 10/325 oral 3-16 Omidvar Route: PO, l tablet 14:49: Drug Form: Nidia nn 00 TAB, Q4H, PRN Pain, Start date: 09/04/11 9:49:00, Stop date: 10/04/11 9:48:00 [place] No Bismark 1 tab, Memoria 10/325 oral 3-16 Omidvar Route: PO, l tablet 14:49: Drug Form: Nidia nn 00 TAB, Q4H, PRN Pain, Start date: 09/04/11 9:49:00, Stop date: 10/04/11 9:48:00 [place] No Bismark 1 tab, Memoria 10/325 oral [...] 3-16 Kavon 0.25 mL, l 13:37: Route: [place] IVP, Drug form: INJ, Q5Min, PRN Pain [...] Beck 0.1 mL, l 13:37: Hayden Route: [place] IVP, Drug form: INJ, Q2MIN, PRN Narcotic Reversal, Start date: 09/04/11 8:37:00, Duration: 8 doses or times, Stop date: Limited # of times meperidine 0 No Hollie 12.5 mg, Me moria 3-16 Beck 0.5 mL, l 13:37: Hayden Route: [place] 00 IVP, Drug form: INJ, Q30Min, PRN [...] 3-16 Kavon 0.25 mL, l 13:37: Route: [place] 00 IVP, Drug form: INJ, Q5Min, PRN [...] Beck 0.1 mL, l 13:37: Hayden Route: [place] 00 IVP, Drug form: INJ, Q2MIN, PRN Narcotic Reversal, Start date: 09/04/11 8:37:00, Duration: 8 doses or times, Stop date: Limited # of times meperidine 0 No Hollie 12.5 mg, Me moria 3-16 Beck 0.5 mL, l 13:37: Hayden Route: [place] 00 IVP, Drug form: INJ, Q30Min, PRN [...] 3-16 Kavon 0.25 mL, l 13:37: Route: [place] 00 IVP, Drug form: INJ, Q5Min, PRN [...] Beck 0.1 mL, l 13:37: Hayden Route: [place] IVP, Drug form: INJ, Q2MIN, PRN Narcotic Reversal, Start date: 09/04/11 8:37:00, Duration: 8 doses or times, Stop date: Limited # of times meperidine No Hollie 12.5 mg, Me moria 3-16 Beck 0.5 mL, l 13:37: Hayden Route: [place] 00 IVP, Drug form: INJ, Q30Min, PRN [...] 3-15 Anabelle mL, Route: l 16:00: IVPB, [place] 00 [id number], Start date: 09/03/11 11:00:00, Duration: 30 day, Stop date: 10/03/11 8:00:00 clindamycin 2012-0 No Eber L 600 mg, 4 Memoria 3-15 Anabelle mL, Route: l 16:00: IVPB, [place] 00 [id number], Start date: 09/03/11 11:00:00, Duration: 30 day, Stop date: 10/03/11 8:00:00 clindamycin 2011-0 No Eber L 600 mg, 4 Memoria 3-15 Anabelle mL, Route: l 16:00: IVPB, [place] 00 [id number], Start date: 09/03/11 11:00:00, Duration: [...] 3-15 Omidvar tab, l 13:39: Route: PO, [place] 00 Drug form: ERTAB, ONCE, Start date: [...] date: 09/03/11 8:39:00, Stop date: 09/03/11 8:39:00 [place] 5/325 2011-0 No Rosalino 1 tab, M emoria oral tablet -15 Kavon Route: PO, l 05:00: Drug Form: [place] 00 TAB, Q4H, Start date: 09/03/11 0:00:00, Duration: 30 day, Stop date: 10/02/11 20:00:00 [place] 5/325 2011-0 No Rosalino 1 tab, M emoria oral tablet - Kavon Route: PO, l 05:00: Drug Form: Vin 00 TAB, Q4H, Start date: 09/03/11 0:00:00, Duration: 30 day, Stop date: 10/02/11 20:00:00 [place] 5/325 2011-0 No Rosalino 1 tab, M emoria oral tablet - Kavon Route: PO, l 05:00: Drug Form: Vin 00 TAB, Q4H, Start date: 09/03/11 0:00:00, Duration: 30 day, Stop date: 10/02/11 20:00:00 [place] 5/325 2011-0 No Rosalino 1 tab, M emoria oral tablet - Kavon Route: PO, l 05:00: Drug Form: Vin 00 TAB, Q4H, Start date: 09/03/11 0:00:00, Duration: 30 day, Stop date: 10/02/11 20:00:00 [place] 5/325 2011-0 No Rosalino 1 tab, M emoria oral tablet - Kavon Route: PO, l 05:00: Drug Form: [place] 00 TAB, Q4H, Start date: 09/03/11 0:00:00, Duration: 30 day, Stop date: 10/02/11 20:00:00 Geodon 2012-0 No Eber L 120 mg, 3 Memoria 3-15 Anabelle cap, l 02:00: Route: PO, [place] 00 Drug form: CAP, Bedtime, Start date: [...] 3-15 Anabelle cap, l 02:00: Route: PO, [place] 00 Drug form: CAP, Bedtime, Start date: [...] 3-14 Anabelle cap, l 17:00: Route: PO, [place] 00 Drug form: ERCAP, Daily, Give qAM after today's dose., Start date: 09/02/11 12:00:00, Duration: 30 day, Stop date: 10/02/11 9:00:00 Effexor XR 2012-0 No Eber L 75 mg, 1 Memoria 3-14 Anabelle cap, l 17:00: Route: PO, [place] 00 Drug form: ERCAP, Daily, Give qAM [...] 3-14 Anabelle cap, l 17:00: Route: PO, [place] 00 Drug form: ERCAP, Daily, Give qAM after today's dose., Start date: 09/02/11 12:00:00, Duration: 30 day, Stop date: 10/02/11 9:00:00 [place] 5/325 2011-0 No Rosalino 1 tab, M emoria oral tablet 09-01 Kavon Route: PO, l 16:25: Drug Form: [place] 00 TAB, Q4H, PRN Pain, Start date: 09/02/11 11:25:00, Duration: 30 day, Stop date: 10/02/11 11:24:00 [place] 5/325 2011-0 No Rosalino 1 tab, M emoria oral tablet 09-01 Kavon Route: PO, l 16:25: Drug Form: [place] 00 TAB, Q4H, PRN Pain, Start date: 09/02/11 11:25:00, Duration: 30 day, Stop date: 10/02/11 11:24:00 [place] 5/325 2011-0 No Rosalino 1 tab, M emoria oral tablet 09-01 Kavon Route: PO, l 16:25: Drug Form: [place] 00 TAB, Q4H, PRN Pain, Start date: 09/02/11 11:25:00, Duration: 30 day, Stop date: 10/02/11 11:24:00 [place] 5/325 2011-0 No Rosalino 1 tab, M emoria oral tablet 3-14 Kavon Route: PO, l 16:25: Drug Form: [place] 00 TAB, Q4H, PRN Pain, Start date: 09/02/11 11:25:00, Duration: 30 day, Stop date: 10/02/11 11:24:00 [place] No Rosalino 1 tab, M emoria oral [...] Omidvar mL, Route: l 16:15: IVPB, Drug [place] 00 form: INJ, ONCE, Start date: 09/02/11 [...] Omidvar mL, Route: l 16:15: IVPB, Drug [place] 00 form: INJ, ONCE, Start date: 09/02/11 11:15:00, Stop date: 09/02/11 11:15:00 Lovenox 2012-0 No Missael 40 mg, 0.4 Mem oria 3-14 Movva mL, Route: l 14:00: SUB-Q, [place] Drug form: INJ, Daily, Start date: 09/02/11 9:00:00, Duration: 30 day, Stop date: 10/01/11 9:00:00 vancomycin 2011-0 No Eber L 1 gm, Memoria 3-14 Anabelle Route: l 14:00: IVPB, Drug Vin 00 form: INJ, [id number], Start date: 09/02/11 9:00:00, Duration: 30 day, Stop date: 10/01/11 21:00:00 Lovenox 2012-0 No Missael 40 mg, 0.4 Mem oria 3-14 Movva mL, Route: l 14:00: SUB-Q, Vin Drug form: INJ, Daily, Start date: 09/02/11 9:00:00, Duration: 30 day, Stop date: 10/01/11 9:00:00 vancomycin 2011-0 No Eber L 1 gm, Memoria 3-14 Anabelle Route: l 14:00: IVPB, Drug Vin 00 form: INJ, [id number], Start date: 09/02/11 9:00:00, Duration: 30 day, Stop date: 10/01/11 21:00:00 Lovenox 2012-0 No Missael 40 mg, 0.4 Mem oria 3-14 Movva mL, Route: l 14:00: SUB-Q, [place] Drug form: INJ, Daily, Start date: 09/02/11 9:00:00, Duration: 30 day, Stop date: 10/01/11 9:00:00 vancomycin 2011-0 No Eber L 1 gm, Memoria 3-14 Anabelle Route: l 14:00: IVPB, Drug Vin 00 form: INJ, [id number], Start date: 09/02/11 9:00:00, Duration: 30 day, Stop date: 10/01/11 21:00:00 Lovenox 2012-0 No Missael 40 mg, 0.4 Mem oria 3-14 Movva mL, Route: l 14:00: SUB-Q, Vin 00 Drug form: INJ, Daily, Start date: 09/02/11 9:00:00, Duration: 30 day, Stop date: 10/01/11 9:00:00 vancomycin 2011-0 No Eber L 1 gm, Memoria 3-14 Anabelle Route: l 14:00: IVPB, Drug form: INJ, [id number], Start date: 09/02/11 9:00:00, Duration: 30 day, Stop date: 10/01/11 21:00:00 Lovenox 2011-0 No Missael 40 mg, 0.4 Mem oria 3-14 Movva mL, Route: l 14:00: SUB-Q, [place] 00 Drug form: INJ, Daily, Start date: 09/02/11 9:00:00, Duration: 30 day, Stop date: 10/01/11 9:00:00 vancomycin 2011-0 No Eber L 1 gm, Memoria 3-14 Anabelle Route: l 14:00: IVPB, Drug form: INJ, [id number], Start date: 09/02/11 9:00:00, Duration: 30 day, Stop date: 10/01/11 21:00:00 clindamycin 2011-0 No Eber L 600 mg, 4 Memoria (SCIP) 3-14 Anabelle mL, Route: l 10:00: IVPB, Vin 00 [id number], Start date: 09/02/11 5:00:00, Duration: 3 doses or times, Stop date: 09/02/11 21:00:00 clindamycin 2012-0 No Eber L 600 mg, 4 Memoria (SCIP) 3-14 Anabelle mL, Route: l 10:00: IVPB, [place] 00 [id number], Start date: 09/02/11 5:00:00, Duration: 3 doses or times, Stop date: 09/02/11 21:00:00 clindamycin 2012-0 No Eber L 600 mg, 4 Memoria (SCIP) 3-14 Anabelle mL, Route: l 10:00: IVPB, [place] 00 [id number], Start date: 09/02/11 5:00:00, Duration: 3 doses or times, Stop date: 09/02/11 21:00:00 clindamycin 2012-0 No Eber L 600 mg, 4 Memoria (SCIP) 3-14 Anabelle mL, Route: l 10:00: IVPB, [place] 00 [id number], Start date: 09/02/11 5:00:00, Duration: [...] Brandon mL, Route: l 04:00: Connally IVPB, [place] 00 [id number], Start date: 09/01/11 23:00:00, Duration: [...] Brandon mL, Route: l 04:00: Connally IVPB, [place] 00 [id number], Start date: 09/01/11 23:00:00, Duration: [...] 2011-0 No Bismark 15 unit, Mendoza janice isophane-WELL BLOWER 3-14 Omidvar 0.15 mL, l H 02:00: Route: Vin SUB-Q, Drug form: INJ, Q12H, Start date: 09/01/11 21:00:00, Stop date: 10/01/11 9:00:00 insulin 2011-0 No B[place] 15 unit, Mendoza janice isophane-WELL BLOWER 3-14 Omidvar 0.15 mL, l H 02:00: Route: Vin SUB-Q, Drug form: INJ, Q12H, Start date: 09/01/11 21:00:00, Stop date: 10/01/11 9:00:00 insulin 2011-0 No [place] 15 unit, Mendoza janice isophane-WELL BLOWER 3-14 Omidvar 0.15 mL, l H 02:00: Route: Vin SUB-Q, Drug form: INJ, Q12H, Start date: 09/01/11 21:00:00, Stop date: 10/01/11 9:00:00 insulin 2011-0 No [place] 15 unit, Mendoza janice isophane-WELL BLOWER 3-14 Omidvar 0.15 mL, l H 02:00: Route: Vin SUB-Q, Drug form: INJ, Q12H, Start date: 09/01/11 21:00:00, Stop date: 10/01/11 9:00:00 insulin 2011-0 No B[place] 15 unit, Mendoza janice isophane-WELL BLOWER 3-14 Omidvar 0.15 mL, l H 02:00: [...] 3-14 Barbra Route: l 01:07: Feliciano IVP, [place] 00 Q5Min, PRN Pain Score 4-6, Start [...] Barbra Route: l 01:07: Feliciano IVP, PRN, [place] 00 PRN Benzodiaze pine Reversal, Initial dose, Start date: 09/01/11 20:07:00, Duration: 30 day, Stop date: 10/01/11 20:06:00 ondansetron No Mariaelena-Corea 4 mg, Memoria 3-14 Barbra Route: l 01:07: Feliciano IVP, ONCE, [place] 00 PRN Nausea & Vomiting, Start date: 09/01/11 20:07:00 labetalol No Mariaelena-Corea 5 mg, Me moria 3-14 Barbra Route: l 01:07: Feliciano IVP, [place] 00 Q5Min, PRN Elevated BP, Start date: [...] Barbra Route: l 01:07: Feliciano IVP, PRN, [place] 00 PRN Benzodiaze pine Reversal, Initial dose, Start date: 09/01/11 20:07:00, Duration: 30 day, Stop date: 10/01/11 20:06:00 ondansetron No Mariaelena-Corea 4 mg, Memoria 3-14 Barbra Route: l 01:07: Feliciano IVP, ONCE, [place] 00 PRN Nausea & Vomiting, Start date: [...] No Mariaelena-Corea 0.5 mg, Memoria ne 3-14 Barbar Route: l 01:07: Feliciano IVP, [...] 3-14 Barbra Route: l 01:07: Feliciano IVP, [place] 00 Q5Min, PRN Pain Score 4-6, Start [...] Barbra Route: l 01:07: Feliciano IVP, ONCE, [place] 00 PRN Nausea & Vomiting, Start date: [...] 3-14 Barbra Route: l 01:07: Feliciano IVP, [place] 00 Q5Min, PRN Pain Score 4-6, Start date: 09/01/11 20:07:00, Duration: 5 doses or times, Stop date: Limited # of times naloxone No Mariaelena-Corea 0.04 mg, Memoria 3-14 Barbra Route: l 01:07: Feliciano IVP, [place] 00 Q2MIN, PRN Narcotic Reversal, Start date: 09/01/11 20:07:00, Duration: 8 doses or times, Stop date: Limited # of times flumazenil No Mariaelena-Corea 0.2 mg, Memoria 3-14 Barbra Route: l 01:07: Feliciano IVP, PRN, [place] 00 PRN Benzodiaze pine Reversal, Initial dose, Start date: 09/01/11 20:07:00, Duration: 30 day, Stop date: 10/01/11 20:06:00 ondansetron No Mariaelena-Corea 4 mg, Memoria 3-14 Barbra Route: l 01:07: Feliciano IVP, ONCE, Bagley 00 PRN Nausea & Vomiting, Start date: 09/01/11 20:07:00 vancomycin No Mele 1 gm, Mem oria 3-14 Gauvain Route: l 01:00: IVPB, Drug Vin 00 form: INJ, [id number], Start date: 09/01/11 20:00:00, Duration: 30 day, Stop date: 10/01/11 8:00:00 vancomycin No Mele 1 gm, Mem oria 3-14 Gauvain Route: l 01:00: IVPB, Drug Vin 00 form: INJ, [id number], Start date: 09/01/11 20:00:00, Duration: 30 day, Stop date: 10/01/11 8:00:00 vancomycin No Mele 1 gm, Mem oria 3-14 Gauvain Route: l 01:00: IVPB, Drug Vin 00 form: INJ, [id number], Start date: 09/01/11 20:00:00, Duration: 30 day, Stop date: 10/01/11 8:00:00 vancomycin No Mele 1 gm, Mem oria 3-14 Gauvain Route: l 01:00: IVPB, Drug Bagley 00 form: INJ, [id number], Start date: 09/01/11 20:00:00, Duration: 30 day, Stop date: 10/01/11 8:00:00 vancomycin 2012-0 No Mele 1 gm, Mem oria 3-14 Gauvain Route: l 01:00: IVPB, Drug Bagley 00 form: INJ, [id number], Start date: 09/01/11 20:00:00, Duration: 30 day, Stop date: 10/01/11 8:00:00 Lactated 2011-0 No Charbel A 1,000 mL, Memoria Ringers IV 3-14 Wong Rate: 125 l 1,000 mL 00:55: ml/hr, Bagley 00 Infuse over: 8 hr, Route: IV, Dosing Weight 68.2 kg, Total Volume: 1,000, Start date: 09/01/11 19:55:00, Duration: 30 day, Stop date: 10/01/11 19:54:00 Lactated 2011-0 No Charbel A 1,000 mL, Memoria Ringers IV 3-14 Wong Rate: 125 l 1,000 mL 00:55: ml/hr, Bagley 00 Infuse over: 8 hr, Route: IV, Dosing Weight 68.2 kg, Total Volume: 1,000, Start date: 09/01/11 19:55:00, Duration: 30 day, Stop date: 10/01/11 19:54:00 Lactated 2011-0 No Charbel A 1,000 mL, Memoria Ringers IV 3-14 Wong Rate: 125 l 1,000 mL 00:55: ml/hr, Bagley 00 Infuse over: 8 hr, Route: IV, [...] Rate: 125 l 1,000 mL 00:55: ml/hr, Bagley 00 Infuse over: 8 hr, Route: IV, Dosing Weight 68.2 kg, Total Volume: 1,000, Start date: 09/01/11 19:55:00, Duration: 30 day, Stop date: 10/01/11 19:54:00 vancomycin 2011-0 No Missael 1 gm, Memor ia 3-14 Movva Route: l 00:00: IVPB, Drug Bagley 00 form: INJ, [id number], Start date: 09/01/11 19:00:00, Duration: 30 day, Stop date: 10/01/11 7:00:00 vancomycin 2011-0 No Missael 1 gm, Memor ia 3-14 Movva Route: l 00:00: IVPB, Drug Vni 00 form: INJ, [id number], Start date: 09/01/11 19:00:00, Duration: 30 day, Stop date: 10/01/11 7:00:00 vancomycin 2011-0 No Missael 1 gm, Memor ia 3-14 Movva Route: l 00:00: IVPB, Drug Vin 00 form: INJ, [id number], Start date: 09/01/11 19:00:00, Duration: 30 day, Stop date: 10/01/11 7:00:00 vancomycin 2011-0 No Missael 1 gm, Memor ia 3-14 Movva Route: l 00:00: IVPB, Drug Bagley 00 form: INJ, [id number], Start date: 09/01/11 19:00:00, Duration: 30 day, Stop date: 10/01/11 7:00:00 vancomycin 2011-0 No Missael 1 gm, Memor ia 3-14 Movva Route: l 00:00: IVPB, Drug Vin 00 form: INJ, [id number], Start date: 09/01/11 19:00:00, Duration: 30 day, [...] Movva mL, Route: l 23:23: IVP, Drug Bagley 00 Form: INJ, PRN, PRN Blood Glucose Results, Start date: 09/01/11 18:23:00, Duration: 30 day, Stop date: 10/01/11 18:22:00 insulin 2012-0 No Missael 6 unit, Memori a aspart 3-13 Movva 0.06 mL, l 23:23: Route: [place] 00 SUB-Q, Drug form: SOLN, TID-Before Meals, [...] 3-13 Movva 0.06 mL, l 23:23: Route: [place] SUB-Q, Drug form: SOLN, TID-Before Meals, PRN Blood Glucose Results, Start date: 09/01/11 18:23:00, Duration: 30 day, Stop date: 10/01/11 18:22:00 glucagon 2012-0 No Missael 1 mg, Memoria 3-13 [place]va Route: IM, l 23:23: Drug form: [place] PDR/INJ, PRN, PRN Blood Glucose Results, Start [...] Movva Route: IM, l 23:23: Drug form: [place] 00 PDR/INJ, PRN, PRN Blood Glucose Results, [...] Beni mL, Route: l 21:14: IVP, Drug [place] 00 form: INJ, Q4H, PRN Severe Pain, Start date: 09/01/11 16:14:00, Stop date: 10/01/11 16:13:00 morphine 2011-0 No Daja Shannan 2 mg, 1 M emoria Sulfate 3-13 Beni mL, Route: l 21:14: IVP, Drug [place] 00 form: INJ, Q4H, PRN Severe Pain, Start date: 09/01/11 16:14:00, Stop date: 10/01/11 16:13:00 morphine 2011-0 No Daja Shannan 2 mg, 1 M emoria Sulfate 3-13 Beni mL, Route: l 21:14: IVP, Drug [place] 00 form: INJ, Q4H, PRN Severe Pain, Start date: 09/01/11 16:14:00, Stop date: 10/01/11 16:13:00 morphine 2012-0 No Daja Shannan 2 mg, 1 M emoria Sulfate 3-13 Beni mL, Route: l 21:14: IVP, Drug [place] 00 form: INJ, Q4H, PRN Severe Pain, Start date: 09/01/11 16:14:00, Stop date: 10/01/11 16:13:00 Lactated 2011-0 No Cesar 1,000 mL, Me moria Ringers IV 3-13 [place] Rate: 100 l 1,000 mL 19:03: ml/hr, [place] 00 Infuse over: 10 hr, Route: IV, Dosing Weight 68.182 kg, Total Volume: 1,000, Start date: 09/01/11 14:03:00, Duration: 30 day, Stop date: 10/01/11 14:02:00 Lactated 2012-0 No Cesar 1,000 mL, Me moria Ringers IV 3-13 Manuel [place] Rate: 100 l 1,000 mL 19:03: ml/hr, [place] 00 Infuse over: 10 hr, Route: IV, Dosing Weight 68.182 kg, Total Volume: 1,000, Start date: 09/01/11 14:03:00, Duration: 30 day, Stop date: 10/01/11 14:02:00 Lactated 2012-0 No Cesar 1,000 mL, Me moria Ringers IV 3-13 Manuel [place] Rate: 100 l 1,000 mL 19:03: ml/hr, [place] 00 Infuse over: 10 hr, Route: IV, Dosing Weight 68.182 kg, Total Volume: 1,000, Start date: 09/01/11 14:03:00, Duration: 30 day, Stop date: 10/01/11 14:02:00 Lactated 2012-0 No Cesar 1,000 mL, Me moria Ringers IV 3-13 Manuel [place] Rate: 100 l 1,000 mL 19:03: ml/hr, [place] 00 Infuse over: 10 hr, Route: IV, Dosing Weight 68.182 kg, Total Volume: 1,000, Start date: 09/01/11 14:03:00, Duration: 30 day, Stop date: 10/01/11 14:02:00 Lactated 2012-0 No Cesar 1,000 mL, Me moria Ringers IV 3-13 Manuel [place] Rate: 100 l 1,000 mL 19:03: ml/hr, [place] 00 Infuse over: 10 hr, Route: IV, [...] Stop date: 09/02/11 6:41:00 Lactated 2012-0 No Neid 2,000 mL, Mendoza janice Ringers 3-13 [place]en [...] Stop date: 09/02/11 6:41:00 Insulin 2011-0 No Neid 8 unit, Memoria regular 3-13 [place] 0.08 mL, l 15:28: Gurinder Route: Vin SUB-Q, Drug form: SOLN, ONCE, Priority: STAT, Start date: 09/01/11 10:28:00, Stop date: 09/01/11 10:28:00 Insulin 2011-0 No [place] 8 unit, Memoria regular 3-13 [place]en 0.08 mL, l 15:28: Gurinder Route: [place] SUB-Q, Drug form: SOLN, ONCE, Priority: STAT, Start date: 09/01/11 10:28:00, Stop date: 09/01/11 10:28:00 Insulin 2011-0 No [place] 8 unit, Memoria regular 3-13 Madden 0.08 mL, l 15:28: Gurinder Route: [place] SUB-Q, Drug form: SOLN, ONCE, Priority: STAT, Start date: 09/01/11 10:28:00, Stop date: 09/01/11 10:28:00 Insulin 2011-0 No [place] 8 unit, Memoria regular 3-13 Madden 0.08 mL, l 15:28: Gurinder Route: Vin SUB-Q, Drug form: SOLN, ONCE, Priority: STAT, Start date: 09/01/11 10:28:00, Stop date: 09/01/11 10:28:00 Insulin 2011-0 No [place] 8 unit, Memoria regular 3-13 Madden 0.08 mL, l 15:28: Gurinder Route: [place] SUB-Q, Drug form: SOLN, ONCE, Priority: STAT, [...] Madden Rate: l 0.9% 14:53: Gurinder 1,000 [place] (Bolus) IV 00 ml/hr, 1,000 mL Infuse [...] L 1,000 mL, M emoria Chloride 3-13 [place] Rate: l 0.9% 10:41: 1,000 [place] (Bolus) IV 00 ml/hr, 1000 mL Infuse over: 1 hr, Route: IV, Dosing Weight 68.182 kg, Total Volume: 1,000, Bolus Dose, Priority: STAT, Start date: 09/01/11 5:41:00, Duration: 1 doses or times, Stop date: 09/01/11 6:40:00 Sodium 2011-0 No Bee L 1,000 mL, M emoria Chloride 3-13 [place] Rate: l 0.9% 10:41: 1,000 [place] (Bolus) IV 00 ml/hr, 1000 mL Infuse over: 1 hr, Route: IV, Dosing Weight 68.182 kg, Total Volume: 1,000, Bolus Dose, Priority: STAT, Start date: 09/01/11 5:41:00, Duration: 1 doses or times, Stop date: 09/01/11 6:40:00 Sodium 2012-0 No Bee L 1,000 mL, M emoria Chloride 3-13 [place] Rate: l 0.9% 10:41: 1,000 [place] (Bolus) IV 00 ml/hr, 1000 mL Infuse over: 1 hr, Route: IV, Dosing Weight 68.182 kg, Total Volume: 1,000, Bolus Dose, Priority: STAT, Start date: 09/01/11 5:41:00, Duration: 1 doses or times, Stop date: 09/01/11 6:40:00 Sodium 2011-0 No Bee L 1,000 mL, M emoria Chloride 3-13 [place] Rate: l 0.9% 10:41: 1,000 Vin (Bolus) [...] - [place] Route: l 09:06: IVP, ONCE, [place] 00 Priority: STAT, Start date: 09/01/11 4:06:00, Stop date: 09/01/11 4:06:00 ondansetron 2011-0 No Bee L 4 mg, Memoria - [place] Route: l 09:06: IVP, Drug Vin 00 form: INJ, ONCE, Priority: STAT, Start date: 09/01/11 4:06:00, Stop date: 09/01/11 4:06:00 morphine 2011-0 No Bee L 4 mg, Mem oria Sulfate 08-31 [place] Route: l 09:06: IVP, ONCE, Vin 00 Priority: STAT, Start date: 09/01/11 4:06:00, Stop date: 09/01/11 4:06:00 ondansetron 2011-0 No Bee L 4 mg, Memoria - [place] Route: l 09:06: IVP, Drug Vin 00 form: INJ, ONCE, Priority: STAT, Start date: 09/01/11 4:06:00, Stop date: 09/01/11 4:06:00 morphine 2011-0 No Bee L 4 mg, Mem oria Sulfate 08-31 [place] Route: l 09:06: IVP, ONCE, Vin 00 Priority: STAT, Start date: 09/01/11 4:06:00, Stop date: 09/01/11 4:06:00 ondansetron 2011-0 No Bee L 4 mg, Memoria - [place] Route: l 09:06: IVP, Drug Vin 00 form: INJ, ONCE, Priority: STAT, Start date: 09/01/11 4:06:00, Stop date: 09/01/11 4:06:00 morphine 2011-0 No Bee L 4 mg, Mem oria Sulfate - [place] Route: l 09:06: IVP, ONCE, Vin 00 Priority: STAT, Start date: 09/01/11 4:06:00, Stop date: 09/01/11 4:06:00 Sodium 2011-0 No Bee L 1,000 mL, M emoria Chloride 3-13 [place] Rate: l 0.9% 08:42: 1,000 Vin (Bolus) [...] 3-13 [place] Rate: l 0.9% 08:42: 1,000 [place] (Bolus) IV 00 ml/hr, 1000 mL Infuse over: 1 hr, Route: IV, Dosing Weight 68.182 kg, Total Volume: 1,000, Bolus Dose, Priority: STAT, Start date: 09/01/11 3:42:00, Duration: 1 doses or times, Stop date: 09/01/11 4:41:00 Insulin 2011-0 No Bee L 8 unit, Me moria regular 3-13 [place] 0.08 mL, l 08:30: Route: Vin 00 [...] 3-13 [place] 0.08 mL, l 08:30: Route: [place] 00 IVP, Drug form: SOLN, ONCE, Priority: STAT, Start date: 09/01/11 3:30:00, Stop date: 09/01/11 3:30:00 Insulin 2011-0 No Bee L 8 unit, Me moria regular 3-13 [place] 0.08 mL, l 08:30: Route: Vin 00 [...] L 1,000 mL, M emoria Chloride 3-13 [place] Rate: l 0.9% 07:29: 1,000 [place] (Bolus) IV 00 ml/hr, 1,000 mL Infuse over: 1 hr, Route: IV, Dosing Weight 68.182 kg, Total Volume: 1,000, Bolus Dose, Priority: STAT, Start date: 09/01/11 2:29:00, Duration: 1 doses or times, Stop date: 09/01/11 3:28:00 Sodium 2012-0 No Bee L 1,000 mL, M emoria Chloride 3-13 [place] Rate: l 0.9% 07:29: 1,000 Vin (Bolus) IV 00 ml/hr, 1,000 mL Infuse over: 1 hr, Route: IV, Dosing Weight 68.182 kg, Total Volume: 1,000, Bolus Dose, Priority: STAT, Start date: 09/01/11 2:29:00, Duration: 1 doses or times, Stop date: 09/01/11 3:28:00 Sodium 2012-0 No Bee L 1,000 mL, M emoria Chloride 3-13 [place] Rate: l 0.9% 07:29: 1,000 Vin (Bolus) IV 00 ml/hr, 1,000 mL Infuse over: 1 hr, Route: IV, Dosing Weight 68.182 kg, Total Volume: 1,000, Bolus Dose, Priority: STAT, Start date: 09/01/11 2:29:00, Duration: 1 doses or times, Stop date: 09/01/11 3:28:00 Sodium 2011-0 No Bee L 1,000 mL, M emoria Chloride 3-13 [place] Rate: l 0.9% 07:29: 1,000 [place] (Bolus) IV 00 ml/hr, 1,000 mL Infuse [...] Akmal SUB-Q, l units/mL 14:42: BID, 3 [place] subcutaneou 04 vial, 3, s injection 3, Substituti on Allowed, SUSP Novolin N Yes Didier Fangs 18 Units, Memoria 100 3-04 [place] SUB-Q, l units/mL 14:42: BID, 3 [place] subcutaneou 04 vial, 3, s injection 3, Substituti on Allowed, SUSP insulin Yes Didier Fangs 5 Units, Memoria regular 3-04 [place] SUB-Q, l human 14:40: TID, 30 [place] recombinant 10 vial, 3, 100 3, units/mL [...] 3-04 [place] 100 mL, l 14:00: Route: [place] 00 IVPB, Drug form: INJ, Q2H, Start date: 08/23/11 8:00:00, Duration: 2 doses or times, Stop date: 08/23/11 10:00:00 potassium 2011-0 No Brooks Noam 20 mEq, Memoria chloride 3-04 [place] 100 mL, l 14:00: Route: [place] IVPB, Drug form: INJ, Q2H, Start date: 08/23/11 8:00:00, Duration: 2 doses or times, Stop date: 08/23/11 10:00:00 potassium 2012-0 No Brooks Noam 20 mEq, Memoria chloride 3-04 [place] 100 mL, l 14:00: Route: [place] IVPB, Drug form: INJ, Q2H, Start date: [...] 3-04 Akmal 100 mL, l 14:00: Route: [place] 00 IVPB, Drug form: INJ, Q2H, Start [...] chloride 3-04 [place] Route: l 13:28: IVPB, [place] 00 ONCE, Priority: STAT, Start date: 08/23/11 7:28:00, Stop date: 08/23/11 7:28:00 calcium 2011-0 No Brooks Noam 1 gm, Mem oria chloride 3-04 [place] Route: l 13:28: IVPB, Vin 00 ONCE, Priority: STAT, Start date: 08/23/11 7:28:00, Stop date: 08/23/11 7:28:00 potassium 2011-0 No Brooks Noam 40 mEq, Memoria chloride 3-04 [place] Route: IV, l 12:29: ONCE, [place] 00 Start date: 08/23/11 6:29:00, Stop date: 08/23/11 6:29:00 potassium 2011-0 No Brooks Noam 40 mEq, Memoria chloride 3-04 [place] Route: IV, l 12:29: ONCE, [place] 00 Start date: 08/23/11 6:29:00, Stop date: 08/23/11 6:29:00 potassium 2011-0 No Brooks Noam 40 mEq, Memoria chloride 3-04 [place] Route: IV, l 12:29: ONCE, [place] 00 Start date: 08/23/11 6:29:00, Stop date: [...] Akmal mL, Route: l 12:26: IVPB, Drug [place] 00 form: INJ, ONCE, Total dose = [...] [place]kmal mL, Route: l 12:26: IVPB, Drug [place] 00 form: INJ, ONCE, Total dose = [...] mL, Route: l 16:26: Ahmed IVPB, Drug Ajke n 00 form: INJ, ONCE, Total dose = 2 gm, Start date: 08/22/11 10:26:00, Duration: 1 doses or times, Stop date: 08/22/11 10:26:00 calcium 2011-0 No [place] 1,000 mg, Mem oria gluconate 3-03 [place] 10 mL, l 16:25: Ahmed Route: [place] 00 IVPB, ONCE, Start date: 08/22/11 10:25:00, Stop date: 08/22/11 10:25:00 calcium 2012-0 No [place] 1,000 mg, Mem oria gluconate 3-03 [place] 10 mL, l 16:25: Ahmed Route: Vin 00 IVPB, ONCE, Start date: 08/22/11 10:25:00, Stop date: 08/22/11 10:25:00 calcium 2012-0 No [place] 1,000 mg, Mem oria gluconate 3-03 [place] 10 mL, l 16:25: Ahmed Route: [place] 00 IVPB, ONCE, Start date: 08/22/11 10:25:00, Stop date: 08/22/11 10:25:00 calcium 2012-0 No [place] 1,000 mg, Mem oria gluconate 3-03 [place] 10 mL, l 16:25: Ahmed Route: [place] 00 IVPB, ONCE, Start date: 08/22/11 10:25:00, [...] Akmal mL, Route: l 13:26: IVPB, Drug [place] 00 form: INJ, ONCE, Total dose = 2 gm, Start date: 08/22/11 7:26:00, Duration: 1 doses or times, Stop date: 08/22/11 7:26:00 magnesium 2011-0 No Brooks Noam 2 gm, 50 Memoria sulfate 3-03 [place] mL, Route: l 13:26: IVPB, Drug [place] 00 form: INJ, ONCE, Total dose = [...] Akmal mL, Route: l 13:26: IVPB, Drug [place] form: INJ, ONCE, Total dose = 2 [...] 3-02 [place] tab, l 15:00: Route: PO, [place] Drug form: TAB, Daily, Start date: 08/21/11 9:00:00, Stop date: 09/19/11 9:00:00 lisinopril 2012-0 No Brooks Noam 40 mg, 2 Memoria 3-02 [place] tab, l 15:00: Route: PO, [place] Drug form: TAB, Daily, Start date: 08/21/11 9:00:00, Stop date: 09/19/11 9:00:00 lisinopril 2012-0 No Brooks Noam 40 mg, 2 Memoria 3-02 [place] tab, l 15:00: Route: PO, Vin Drug form: TAB, Daily, Start date: 08/21/11 9:00:00, Stop date: 09/19/11 9:00:00 lisinopril 2012-0 No Brooks Noam 40 mg, 2 Memoria 3-02 [place] tab, l 15:00: Route: PO, [place] Drug form: TAB, Daily, Start date: 08/21/11 9:00:00, Stop date: 09/19/11 9:00:00 lisinopril 2011-0 No Brooks Noam 40 mg, 2 Memoria 3-02 [place] tab, l 15:00: Route: PO, [place] 00 Drug form: TAB, Daily, Start date: [...] mL, Route: l 17:15: Ahmed IVP, Drug [place] 00 form: INJ, Q8H, PRN Nausea, Start [...] mL, Route: l 17:15: Ahmed IVP, Drug [place] 00 form: INJ, Q8H, PRN Nausea, Start date: 08/20/11 11:15:00, Duration: 30 day, Stop date: 09/19/11 11:14:00 Zofran 2012-0 No [place] 4 mg, 2 Memori a 3-01 [place] mL, Route: l 17:15: Ahmed IVP, Drug [place] 00 form: INJ, Q8H, PRN Nausea, Start date: 08/20/11 11:15:00, Duration: 30 day, Stop date: 09/19/11 11:14:00 Zofran 2012-0 No [place] 4 mg, 2 Memori a 3-01 [place] mL, Route: l 17:15: Ahmed IVP, Drug Vin 00 form: INJ, Q8H, PRN Nausea, Start date: 08/20/11 11:15:00, Duration: 30 day, Stop date: 09/19/11 11:14:00 insulin 2011-0 No Yury 10 unit, Mem oria isophane-WELL BLOWER 08-19 [place] Route: l H 16:00: [place] SUB-Q, Nidia nn 00 ONCE, Start date: 08/20/11 10:00:00, Stop date: 08/20/11 10:00:00 insulin 2011-0 No Yury 10 unit, Mem oria isophane-WELL BLOWER 08-19 [place] Route: l H 16:00: [place] SUB-Q, Nidia nn 00 ONCE, Start date: 08/20/11 10:00:00, Stop date: 08/20/11 10:00:00 insulin 2011-0 No Yury 10 unit, Mem oria isophane-WELL BLOWER 08-19 [place] Route: l H 16:00: Rivero SUB-Q, Nidia nn 00 ONCE, Start date: 08/20/11 10:00:00, Stop date: 08/20/11 10:00:00 insulin 2011-0 No Yury 10 unit, Mem oria isophane-WELL BLOWER 08-19 [place] Route: l H 16:00: River[place] SUB-Q, Nidia nn 00 ONCE, Start date: 08/20/11 10:00:00, Stop date: 08/20/11 10:00:00 insulin 2011-0 No Yury 10 unit, Mem oria isophane-WELL BLOWER 08-19 [place] Route: l H 16:00: Rivero SUB-Q, Nidia nn 00 ONCE, Start date: 08/20/11 10:00:00, Stop date: 08/20/11 10:00:00 trazodone 2011-0 Yes 200 mg, 2 Mem oria 100 mg oral 3- tab, PO, l tablet 15:37: Bedtime, [place] 27 90 tab, Substituti on Allowed, TAB trazodone 2011-0 Yes 200 mg, 2 Mem oria 100 mg oral 3- tab, PO, l tablet 15:37: Bedtime, Vin 27 90 tab, Substituti on Allowed, TAB trazodone 2012-0 Yes 200 mg, 2 Mem oria 100 mg oral 3-01 tab, PO, l tablet 15:37: Bedtime, [place] 27 90 tab, Substituti on Allowed, TAB trazodone 2012-0 Yes 200 mg, 2 Mem oria 100 mg oral 3-01 tab, PO, l tablet 15:37: Bedtime, [place] 27 90 tab, Substituti on Allowed, TAB trazodone 2012-0 Yes 200 mg, 2 Mem oria 100 mg oral 3-01 tab, PO, l tablet 15:37: Bedtime, Vin 27 90 tab, Substituti on Allowed, TAB benztropine 2012-0 Yes 1 mg, 1 Mem oria 1 mg oral 3-01 tab, PO, l tablet 15:35: BID, 60 [place] 25 tab, Substituti on Allowed, TAB benztropine [...] tab, PO, l tablet 15:35: BID, 60 [place] 25 tab, Substituti on Allowed, TAB Geodon [...] insulin No Yury 10 unit, Mem oria isophane-WELL BLOWER 3- [place] Route: l H 15:00: Rivero [...] 2011-0 No Yury 10 unit, Mem oria isophane-WELL BLOWER 3-01 [place] Route: l H 15:00: [place] SUB-Q, Nidia nn 00 Q12H, Start date: 08/20/11 9:00:00, Duration: 30 day, Stop date: 09/18/11 21:00:00 Geodon 2011-0 No Yury 60 mg, 3 Mnedoza janice 3-01 [place] cap, l 15:00: Rivero [...] 2011-0 No Yury 10 unit, Mem oria isophane-WELL BLOWER 3-01 [place] Route: l H 15:00: Rivero [...] 2011-0 No Yury 10 unit, Mem oria isophane-WELL BLOWER 3-01 [place] Route: l H 15:00: Rivero [...] 2011-0 No Yury 10 unit, Mem oria isophane-WELL BLOWER 3- [place] Route: l H 15:00: Rivero [...] regular 08-19 [place] SUB-Q, l 09:28: BID, [place] 23 Substituti on Allowed Insulin 2011-0 No Brooks Noam 10 unit, Memoria regular 08-19 [place] SUB-Q, l 09:28: BID, [place] 23 Substituti on Allowed Insulin 2011-0 No Brooks Noam 10 unit, Memoria regular 08-19 [place] SUB-Q, l 09:28: BID, Vin 23 Substituti on Allowed Insulin 0 No Brooks Noam 10 unit, Memoria regular 08-19 [place] SUB-Q, l 09:28: BID, [place] 23 Substituti on Allowed insulin 2011-0 No 10 unit, Memori a isophane-WELL BLOWER 3- SUB-Q, l H 09:26: BID, Vin 18 Substituti on Allowed insulin 2011-0 No 10 unit, Memori a isophane-WELL BLOWER 3- SUB-Q, l H 09:26: BID, Vin 18 Substituti on Allowed insulin 2011-0 No 10 unit, Memori a isophane-WELL BLOWER 3- SUB-Q, l H 09:26: BID, Vin 18 Substituti on Allowed insulin 2011- No 10 unit, Memori a isophane-WELL BLOWER 3- SUB-Q, l H 09:26: BID, Vin 18 Substituti on Allowed insulin 2011- No 10 unit, Memori a isophane-WELL BLOWER 3- SUB-Q, l H 09:26: BID, [place] 18 Substituti on Allowed NS 1,000 mL [...] 08-19 [place] Rate: 150 l 09:06: ml/hr, [place] 00 Infuse over: 6.7 hr, Route: IV, [...] 3-01 [place] Rate: 150 l 09:06: ml/hr, [place] 00 Infuse over: 6.7 hr, Route: IV, [...] 2011-0 No Yury 18 unit, Mem oria isophane-WELL BLOWER 3-01 [place] 0.18 mL, l H 08:58: Rivero Route: Nidia montalvo 00 SUB-Q, Drug form: INJ, Q12H, Start date: 08/20/11 2:58:00, Stop date: 09/18/11 21:00:00 insulin 2011-0 No Yury 18 unit, Mem oria isophane-WELL BLOWER 3-01 [place] 0.18 mL, l H 08:58: River[place] Route: Nidia montalvo SUB-Q, Drug form: INJ, Q12H, Start date: 08/20/11 2:58:00, Stop date: 09/18/11 21:00:00 insulin 2011-0 No Yury 18 unit, Mem oria isophane-WELL BLOWER 3-01 [place] 0.18 mL, l H 08:58: Rivero Route: Nidia montalvo SUB-Q, Drug form: INJ, Q12H, Start date: 08/20/11 2:58:00, Stop date: 09/18/11 21:00:00 insulin 2011-0 No Yury 18 unit, Mem oria isophane-WELL BLOWER 3-01 [place] 0.18 mL, l H 08:58: Rivero Route: Nidia montalvo 00 SUB-Q, Drug form: INJ, Q12H, Start date: 08/20/11 2:58:00, Stop date: 09/18/11 21:00:00 insulin 2011-0 No Yury 18 unit, Mem oria isophane-WELL BLOWER 3-01 [place] 0.18 mL, l H 08:58: [...] 2011-0 No [facility]01 [place] mL, Route: l [...] Syringe 08-19 [place] ml, Route: l 08:46: Riveor IVP, Drug He rmann 00 Form: INJ, [...] No Hughes-Jason 4 mg, M emoria 08-19 [place] Route: l 07:42: Dawson IVP, Drug Herm naeem 00 Pu form: INJ, ONCE, Priority: STAT, Start date: 08/20/11 1:42:00, Stop date: 08/20/11 1:42:00 ondansetron 2011-0 No Hughes-Jason 4 mg, emoria 08-19 [place] Route: l 07:42: [place] IVP, Drug Herm naeem 00 Pu form: INJ, ONCE, Priority: STAT, Start date: 08/20/11 1:42:00, Stop date: 08/20/11 1:42:00 ondansetron 2011-0 No Hughes-Jason 4 mg, emoria 08-19 [place] Route: l 07:42: [place] IVP, Drug Herm naeem 00 Pu form: INJ, ONCE, Priority: STAT, Start date: 08/20/11 1:42:00, Stop date: 08/20/11 1:42:00 ondansetron 2011-0 No Hughes-Jason 4 mg, emoria 08-19 [place] Route: l 07:42: [place] IVP, Drug Herm naeem 00 Pu form: INJ, ONCE, Priority: STAT, Start date: 08/20/11 1:42:00, Stop date: 08/20/11 1:42:00 ondansetron 2011-0 No Hughes-Jason 4 mg, M emoria 08-19 [place] Route: l 07:42: [place] IVP, Drug Herm naeem 00 Pu form: INJ, ONCE, Priority: STAT, Start date: 08/20/11 1:42:00, Stop date: 08/20/11 1:42:00 GI cocktail No Hughes-Jason 30 ml, Memoria 08-19 [place] Route: PO, l 05:12: [place] Drug Form: Her braden 00 Pu SUSP, ONCE, STAT, Start date: 08/19/11 23:12:00, Stop date: 08/19/11 23:12:00 GI cocktail No Hughes-Jason 30 ml, Memoria 08-19 [place] Route: PO, l 05:12: [place] Drug Form: Her braden 00 Pu SUSP, ONCE, STAT, Start date: 08/19/11 23:12:00, Stop date: 08/19/11 23:12:00 GI cocktail No Hughes-Jason 30 ml, Memoria 08-19 [place] Route: PO, l 05:12: [place] Drug Form: Her braden 00 Pu SUSP, ONCE, STAT, Start date: 08/19/11 23:12:00, Stop date: 08/19/11 23:12:00 GI cocktail No Hughes-Jason 30 ml, Memoria 08-19 [place] Route: PO, l 05:12: [place] Drug Form: Her braden 00 Pu SUSP, ONCE, STAT, Start date: 08/19/11 23:12:00, Stop date: 08/19/11 23:12:00 GI cocktail No Hughes-Jason 30 ml, Memoria 08-19 [place] Route: PO, l 05:12: [place] Drug Form: Her braden 00 Pu SUSP, ONCE, STAT, Start date: 08/19/11 23:12:00, Stop date: 08/19/11 23:12:00 ondansetron No Hughes-Jason 4 mg, M emoria 08-19 [place] Route: PO, l 05:10: [place] Drug form: Her braden 00 Pu TABDIS, ONCE, Priority: STAT, Start date: 08/19/11 23:10:00, Stop date: 08/19/11 23:10:00 Lactated 2011- No Hughes-Jason 1,000 mL, Memoria Ringers 08-19 [place] Rate: l (Bolus) IV 05:10: [place] 1,000 He rmann 1000 mL 00 Pu ml/hr, Infuse over: 1 hr, Route: IV, Total Volume: 1,000, Bolus Dose, Priority: STAT, Start date: 08/19/11 23:10:00, Duration: 1 doses or times, Stop date: 08/20/11 0:09:00 ondansetron 2012-0 No Hughes-Jason 4 mg, M emoria 3- [place] Route: PO, l 05:10: [place] Drug form: Her braden 00 Pu TABDIS, ONCE, Priority: STAT, Start date: 08/19/11 23:10:00, Stop date: 08/19/11 23:10:00 Lactated 2012-0 No Hughes-Jason 1,000 mL, Memoria Ringers 3- [place] Rate: l (Bolus) IV 05:10: [place] 1,000 He rmann 1000 mL 00 Pu ml/hr, Infuse over: 1 hr, Route: IV, Total Volume: 1,000, Bolus Dose, Priority: STAT, Start date: 08/19/11 23:10:00, Duration: 1 doses or times, Stop date: 08/20/11 0:09:00 ondansetron 2012-0 No Hughes-Jason 4 mg, M emoria 3- [place] Route: PO, l 05:10: [place] Drug form: Her braden 00 Pu TABDIS, ONCE, Priority: STAT, Start date: 08/19/11 23:10:00, Stop date: 08/19/11 23:10:00 Lactated 2012-0 No Hughes-Jason 1,000 mL, Memoria Ringers 3- [place] Rate: l (Bolus) IV 05:10: [place] 1,000 He rmann 1000 mL 00 Pu ml/hr, Infuse over: 1 hr, Route: IV, Total Volume: 1,000, Bolus Dose, Priority: STAT, Start date: 08/19/11 23:10:00, Duration: 1 doses or times, Stop date: 08/20/11 0:09:00 ondansetron 2012-0 No Hughes-Jason 4 mg, M emoria 3- [place] Route: PO, l 05:10: [place] Drug form: Her braden 00 Pu TABDIS, ONCE, Priority: STAT, Start date: 08/19/11 23:10:00, Stop date: 08/19/11 23:10:00 Lactated 2011-0 No Hughes-Jason 1,000 mL, Memoria Ringers 3- [place] Rate: l (Bolus) IV 05:10: [place] 1,000 He rmann 1000 mL 00 Pu ml/hr, Infuse over: 1 hr, Route: IV, Total Volume: 1,000, Bolus Dose, Priority: STAT, Start date: 08/19/11 23:10:00, Duration: 1 doses or times, Stop date: 08/20/11 0:09:00 ondansetron 2011-0 No Hughes-Jason 4 mg, M emoria 3- [place] Route: PO, l 05:10: Drug form: Her braden 00 Pu TABDIS, ONCE, Priority: STAT, Start date: 08/19/11 23:10:00, Stop date: 08/19/11 23:10:00 Lactated 2011-0 No Hughes-Jason 1,000 mL, Memoria Ringers 3- [place] Rate: l (Bolus) IV 05:10: [place] 1,000 He rmann 1000 mL 00 Pu ml/hr, Infuse over: 1 hr, Route: IV, Total Volume: 1,000, Bolus Dose, Priority: STAT, Start date: 08/19/11 23:10:00, Duration: 1 doses or times, Stop date: 08/20/11 0:09:00 Insulin 2011-0 No Hughes-Jason 7 unit, Mem oria regular 3- [place] 0.07 mL, l 04:15: Route: [place] 00 Pu SUB-Q, Drug form: SOLN, ONCE, Priority: STAT, Start date: 08/19/11 22:15:00, Stop date: 08/19/11 22:15:00 Insulin 2011-0 No Hughes-Jason 7 unit, Mem oria regular 3- [place] 0.07 mL, l 04:15: [place] Route: [place] 00 Pu SUB-Q, Drug form: SOLN, ONCE, Priority: STAT, Start date: 08/19/11 22:15:00, Stop date: 08/19/11 22:15:00 Insulin 2011-0 No Hughes-Jason 7 unit, Mem oria regular 3-01 [place] 0.07 mL, l 04:15: [place] Route: [place] Pu SUB-Q, Drug form: SOLN, ONCE, Priority: STAT, Start date: 08/19/11 22:15:00, Stop date: 08/19/11 22:15:00 Insulin 2011- No Ellen-Jason 7 unit, Mem oria regular 3- [place] 0.07 mL, l 04:15: [place] Route: [place] Pu SUB-Q, Drug form: SOLN, ONCE, Priority: STAT, Start date: 08/19/11 22:15:00, Stop date: 08/19/11 22:15:00 Insulin 2011- No Ellen-Jason 7 unit, Mem oria regular 3- [place] 0.07 mL, l 04:15: [place] Route: Vin Pu SUB-Q, Drug form: SOLN, ONCE, Priority: STAT, Start date: 08/19/11 22:15:00, Stop date: 08/19/11 22:15:00 Geodon 60 No Yury 60 mg, 1 M emoria mg oral 2-29 Gato cap, PO, l capsule 23:24: Rivero BID, 180 [place] 43 cap, Substituti on Allowed, CAP Geodon 60 No Yury 60 mg, 1 M emoria mg oral 2-29 Gato cap, PO, l capsule 23:24: [place] BID, 180 Vin 43 cap, Substituti on Allowed, CAP Geodon 60 No Yury 60 mg, 1 M emoria mg oral 2-29 Gato cap, PO, l capsule 23:24: Rivero BID, 180 [place] 43 cap, Substituti on Allowed, CAP Geodon 60 No Yury 60 mg, 1 M emoria mg oral 2-29 Gato cap, PO, l capsule 23:24: Rivero BID, 180 [place] 43 cap, Substituti on Allowed, CAP Geodon 60 No Yury 60 mg, 1 M emoria mg oral 2-29 Gato cap, PO, l capsule 23:24: Rivero BID, 180 [place] 43 cap, Substituti on Allowed, CAP trazodone 2012-0 No 300 mg, 1 Mem oria 300 mg oral 2-29 tab, PO, l tablet 23:23: Bedtime, [place] 58 15 tab, Substituti on Allowed, TAB trazodone 2012-0 No 300 mg, 1 Mem oria 300 mg oral 2-29 tab, PO, l tablet 23:23: Bedtime, Vin 58 15 tab, Substituti on Allowed, TAB trazodone 2012-0 No 300 mg, 1 Mem oria 300 mg oral 2-29 tab, PO, l tablet 23:23: Bedtime, [place] 58 15 tab, Substituti on Allowed, TAB trazodone 2011-0 No 300 mg, 1 Mem oria 300 mg oral 2-29 tab, PO, l tablet 23:23: Bedtime, [place] 58 15 tab, Substituti on Allowed, TAB trazodone 2011-0 No 300 mg, 1 Mem oria 300 mg oral 2-29 tab, PO, l tablet 23:23: Bedtime, [place] 58 15 tab, Substituti on Allowed, TAB Effexor XR 2011-0 Yes Yury 75 mg, 1 Memoria 75 mg oral 2-29 Gato cap, PO, l capsule, 23:22: Rivero Daily, 30 [place] extended 24 cap, release Substituti on Allowed Effexor XR 2011-0 Yes Yury 75 mg, 1 Memoria 75 mg oral 2-29 Gato cap, PO, l capsule, 23:22: Rivero Daily, 30 [place] extended 24 cap, release Substituti on Allowed [...] No William 40 mL, Me moria 2- Owng Route: PO, l 22:04: Pooja Drug Form: [...] Wong Route: IV, l 21:57: Pooja ONCE, [place] 00 Start date: 08/19/11 15:57:00, Stop date: [...] Wong Route: IV, l 21:57: Pooja ONCE, [place] 00 Start date: 08/19/11 15:57:00, Stop date: [...] Wong Route: IV, l 21:57: Pooja ONCE, [place] 00 Start date: 08/19/11 15:57:00, Stop date: [...] Memoria 2-29 Wong Route: IV, l 21:57: Pooaj ONCE, [place] 00 Start date: 08/19/11 15:57:00, Stop date: [...] 2020-02-20 Completed [facility] Vaccine 00:00:00 [facility] Influenza Virus 2020-02-20 Completed Universit [facility] of Vaccine 00:00:00 [facility] TDAP (ADACEL) VACCINE 2019-07-25 Completed Uni versity of 00:00:00 [facility] Meningococcal B, OMV 2019-07-25 Completed Univ ersity of 00:00:00 [facility] Meningococcal 2019-07-25 Completed University of Polysaccharide 00:00:00 [facility] (groups A, C, Y and Branc h W-135) conjugate vaccine (MCV4P) TDAP (ADACEL) VACCINE 2019-07-25 Completed Uni versity of 00:00:00 [facility] Meningococcal B, OMV 2019-07-25 Completed Univ ersity of 00:00:00 [facility] Meningococcal 2019-07-25 Completed University of Polysaccharide 00:00:00 [facility] [place] [facility] (groups A, C, Y and [...] hepatitis B vaccine 2018-04-07 Completed Memor ial [place] 00:00:00 hepatitis B vaccine 2018-04-07 Completed Memor ial [place] 00:00:00 hepatitis B vaccine 2018-04-07 Completed Memor ial [place] 00:00:00 hepatitis B vaccine 2018-04-07 Completed Memor ial Vin 00:00:00 influenza virus 2018-03-29 Completed [facility] [place] vaccine, inactivated 00:00:00 influenza virus 2018-03-29 Completed [facility] [place] vaccine, inactivated 00:00:00 influenza virus 2018-03-29 Completed [facility] vaccine, inactivated 00:00:00 influenza virus 2018-03-29 Completed [facility] vaccine, inactivated 00:00:00 influenza virus 2018-03-29 Completed [facility] [place] vaccine, inactivated 00:00:00 hepatitis B vaccine 2017-11-26 Completed Memor ial Vin 00:00:00 hepatitis B vaccine 2017-11-26 Completed Memor ial [place] 00:00:00 hepatitis B vaccine 2017-11-26 Completed Memor ial Vin 00:00:00 hepatitis B vaccine 2017-11-26 Completed Memor ial Vin 00:00:00 hepatitis B vaccine 2017-11-26 Completed Memor ial [place] 00:00:00 influenza virus 2017-10-25 Completed [facility] [place] vaccine, inactivated 00:00:00 pneumococcal 2017-10-25 Completed [facility] Her braden 23-valent vaccine 00:00:00 influenza virus 2017-10-25 Completed [facility] vaccine, inactivated 00:00:00 pneumococcal 2017-10-25 Completed [facility] Her braden 23-valent vaccine 00:00:00 influenza virus 2017-10-25 Completed [facility] [place] vaccine, inactivated 00:00:00 pneumococcal 2017-10-25 Completed [facility] Her braden 23-valent vaccine 00:00:00 influenza virus 2017-10-25 Completed [facility] [place] vaccine, inactivated 00:00:00 pneumococcal 2017-10-25 Completed [facility] Her braden 23-valent vaccine 00:00:00 influenza virus 2017-10-25 Completed [facility] [place] vaccine, inactivated 00:00:00 pneumococcal 2017-10-25 Completed [facility] 23-valent vaccine 00:00:00 Influenza Virus 2017-06-22 Completed Universit y of Vaccine Quad IM 3+ 00:00:00 [facility] Influenza Virus 2017-06-22 Completed Universit y of Vaccine Quad IM 3+ 00:00:00 [facility] Influenza Virus 2016-04-02 Completed Universit y of Vaccine Quad IM 3+ 00:00:00 [facility] Influenza Virus 2016-04-02 Completed [facility]it y of Vaccine Quad IM 3+ 00:00:00 [facility] Influenza Virus 2015-10-28 Completed Universit y of Vaccine Quad IM 3+ 00:00:00 [facility] Influenza Virus 2015-10-28 Completed Universit y of Vaccine Quad IM 3+ 00:00:00 [facility] Vital Signs Vital Name Observation Time Observation [...] 16:33:00 171 mm[Hg] Univer sity of pressure [facility] Diastolic blood 2020-06-27 16:33:00 98 mm[Hg] Unive rsity of pressure [facility] Heart rate 2020-06-27 16:33:00 71 /min [facility] Respiratory rate 2020-06-27 16:29:00 19 /min Univ ersity of [facility] Body height 2020-06-27 16:29:00 154.9 cm [facility] Body weight 2020-06-27 16:29:00 77.293 kg [facility] BMI 2020-06-27 16:29:00 32.20 kg/m2 [facility] Oxygen saturation in 2020-06-27 16:29:00 99 /min University of Arterial blood by [facility] Pulse oximetry Branch Systolic blood 2020-06-27 16:33:00 171 mm[Hg] Univer sity of pressure [facility] Diastolic blood 2020-06-27 16:33:00 98 mm[Hg] Unive rsity of pressure [facility] Heart rate 2020-06-27 16:33:00 71 /min [facility] Respiratory rate 2020-06-27 16:29:00 19 /min Univ ersity of [facility] Body height 2020-06-27 16:29:00 154.9 cm [facility] Body weight 2020-06-27 16:29:00 77.293 kg [facility] BMI 2020-06-27 16:29:00 32.20 kg/m2 [facility] Oxygen saturation in 2020-06-27 16:29:00 99 /min University of Arterial blood by [facility] tawnya Pulse oximetry Branch Height/Length 2021-07-08 11:50:13 154.9 cm Measured Weight Dosing 2021-07-08 11:50:13 85.00 kg Height/Length 2021-07-08 11:47:31 154.9 cm Measured Weight Dosing 2021-07-08 11:47:31 85.00 kg Height/Length 2021-07-08 11:47:20 154.9 cm Measured Weight Dosing 2021-07-08 11:47:20 85.00 kg Systolic blood 2021-07-08 19:43:00 189 mm[Hg] [facility] pressure Diastolic blood 2021-07-08 19:43:00 104 mm[Hg] [facility] pressure Heart rate 2021-07-08 18:56:00 74 /min [facility] Body temperature 2021-07-08 18:56:00 36.39 Cathleen Meth [facility] Body height 2021-07-08 18:56:00 157.5 cm [facility] Body weight 2021-07-08 18:56:00 72.938 kg [facility] BMI 2021-07-08 18:56:00 29.41 kg/m2 [facility] Oxygen saturation in 2021-07-08 18:56:00 100 /min [facility] Arterial blood by Pulse oximetry Respiratory rate 2021-06-18 16:36:00 11 /min [facility] Systolic (mm Hg) 2021-01-29 20:03:00 Mendoza rial Vin Diastolic (mm Hg) 2021-01-29 20:03:00 Mem orial Vin Systolic (mm Hg) 2021-01-29 19:40:00 Mendoza rial [place] Diastolic (mm Hg) 2021-01-29 19:40:00 Mem orial [...] Systolic (mm Hg) 2021-01-27 05:00:00 Mendoza rial [place] Diastolic (mm Hg) 2021-01-27 05:00:00 Mem orial Vin Systolic (mm Hg) 2021-01-27 04:00:00 Mendoza rial [place] Diastolic (mm Hg) 2021-01-27 04:00:00 Mem orial Vin Systolic (mm Hg) 2021-01-27 03:00:00 Mendoza rial [place] Diastolic (mm Hg) 2021-01-27 03:00:00 Mem orial Vin Respitory Rate 2021-01-26 19:00:00 Memori al [place] Respitory Rate 2021-01-26 18:00:00 Memori al Vin Respitory Rate 2021-01-26 17:00:00 [facility] [place] Temperature Oral (F) 2021-01-22 13:00:00 97.6 F [facility] [place] Height 2021-01-21 18:25:00 149.86 cm [facility] [place] Weight 2021-01-21 18:25:00 [facility] Vin BMI Calculated 2021-01-21 18:25:00 [facility] [place] Height 2021-01-21 17:09:00 157.48 cm [facility] [place] Height 2021-01-21 13:09:00 157.48 cm [facility] Weight 2021-01-21 13:09:00 [facility] BMI Calculated 2021-01-21 13:09:00 Memori al [place] Heart Rate 2021-01-21 12:50:00 [facility] Systolic (mm Hg) 2020-12-24 15:43:00 Mendoza rial Vin Diastolic (mm Hg) 2020-12-24 15:43:00 Mem orial Vin Heart Rate 2020-12-24 15:43:00 [facility] [place] Height 2020-12-24 15:43:00 154.94 cm [facility] Vin Weight 2020-12-24 15:43:00 [facility] Vin BMI Calculated 2020-12-24 15:43:00 Memori al [place] Systolic (mm Hg) 2016-07-30 14:00:00 Mendoza rial Vin Diastolic (mm Hg) 2016-07-30 14:00:00 Mem orial Vin Respitory Rate 2016-07-30 14:00:00 Memori al Vin Heart Rate 2016-07-30 14:00:00 [facility] [place] Temperature Oral (F) 2016-07-30 14:00:00 97.4 F [facility] Systolic (mm Hg) 2016-07-30 10:45:00 Mendoza rial Vin Diastolic (mm Hg) 2016-07-30 10:45:00 Mem orial Vin Heart Rate 2016-07-30 10:45:00 [facility] [place] Temperature Oral (F) 2016-07-30 10:45:00 97.2 F [facility] [place] Respitory Rate 2016-07-30 10:45:00 [facility] [place] Heart Rate 2016-07-30 06:35:00 [facility] [place] Temperature Oral (F) 2016-07-30 06:35:00 97.0 F [facility] Respitory Rate 2016-07-30 06:35:00 Memori al Vin Systolic (mm Hg) 2016-07-30 06:35:00 Mendoza rial [place] Diastolic (mm Hg) 2016-07-30 06:35:00 Mem orial [place] Weight 2016-07-24 02:13:00 [facility] [place] BMI Calculated 2016-07-24 02:13:00 Memori al Vin Height 2016-07-24 02:13:00 160.02 cm [facility] [place] Respitory Rate 2016-06-15 15:00:00 Mem[facility] al [place] Systolic (mm Hg) 2016-06-15 15:00:00 Mendoza rial [place] Diastolic (mm Hg) 2016-06-15 15:00:00 Mem orial [place] Respitory Rate 2016-06-15 14:00:00 Memori al Vin Systolic (mm Hg) 2016-06-15 14:00:00 Mendoza rial [place] Diastolic (mm Hg) 2016-06-15 14:00:00 Mem orial [place] Respitory Rate 2016-06-15 13:29:00 Memori al [place] Systolic (mm Hg) 2016-06-15 13:29:00 Mendoza rial [place] Diastolic (mm Hg) 2016-06-15 13:29:00 Mem orial [place] Temperature Oral (F) 2016-06-14 10:56:00 97.1 F [facility] Vin Temperature Oral (F) 2016-06-14 06:55:00 97.1 F [facility] [place] Temperature Oral (F) 2016-06-12 10:00:00 96.8 F [facility] [place] Weight 2016-06-11 04:25:00 [facility] Height 2016-06-11 04:25:00 160.02 cm [facility] BMI Calculated 2016-06-11 04:25:00 Mem[facility] al [place] Heart Rate 2016-06-11 02:04:00 [facility] Heart Rate 2016-06-11 00:00:00 [facility] Heart Rate 2016-06-10 20:30:00 [facility] [place] Weight 2016-06-10 16:04:00 [facility] [place] BMI Calculated 2016-06-10 16:04:00 Memori al Vin Height 2016-06-10 16:04:00 160.02 cm [facility] [place] Temperature Oral (F) 2014-06-26 15:12:00 98.0 F [facility] [place] Systolic (mm Hg) 2014-06-26 15:12:00 Mendoza rial [place] Heart Rate 2014-06-26 15:12:00 [facility] Vin Diastolic (mm Hg) 2014-06-26 15:12:00 Mem orial Vin Respitory Rate 2014-06-26 15:12:00 Memori al [place] Systolic (mm Hg) 2014-06-26 13:53:00 Mendoza rial Vin Diastolic (mm Hg) 2014-06-26 13:53:00 Mem orial Vin Respitory Rate 2014-06-26 13:53:00 Memori al [place] Temperature Oral (F) 2014-06-26 13:53:00 98.0 F [facility] [place] Temperature Oral (F) 2014-06-26 12:37:00 98.2 F [facility] Respitory Rate 2014-06-26 12:37:00 Memori al [place] Systolic (mm Hg) 2014-06-26 12:37:00 Mendoza rial [place] Diastolic (mm Hg) 2014-06-26 12:37:00 Mem orial Vin Heart Rate 2014-06-26 09:21:00 [facility] Vin Heart Rate 2014-06-26 06:08:00 [facility] Height 2014-06-26 05:35:00 154.94 cm [facility] Weight 2014-06-26 05:35:00 [facility] BMI Calculated 2014-06-26 05:35:00 Memori al Vin Respitory Rate 2013-04-15 06:10:00 Memori al [place] Diastolic (mm Hg) 2013-04-15 06:10:00 Mem orial Vin Heart Rate 2013-04-15 06:10:00 [facility] [place] Systolic (mm Hg) 2013-04-15 06:10:00 Mendoza rial Vin Temperature Oral (F) 2013-04-15 06:10:00 98.7 F [facility] [place] Respitory Rate 2013-04-15 05:37:00 Memori al Vin Diastolic (mm Hg) 2013-04-15 05:37:00 Mem orial Vin Systolic (mm Hg) 2013-04-15 05:37:00 Mendoza rial [place] Temperature Oral (F) 2013-04-15 05:37:00 98.2 F [facility] Heart Rate 2013-04-15 05:37:00 [facility] [place] Height 2013-04-15 02:06:00 160.02 cm [facility] [place] Weight 2013-04-15 02:06:00 [facility] Temperature Oral (F) 2013-04-15 02:06:00 98.6 F [facility] Respitory Rate 2013-04-15 02:06:00 Memori al Vin Heart Rate 2013-04-15 02:06:00 [facility] [place] Diastolic (mm Hg) 2013-04-15 02:06:00 Mem orial [place] Systolic (mm Hg) 2013-04-15 02:06:00 Mendoza rial Vin Weight 2012-03-14 21:33:00 [facility] [place] Systolic (mm Hg) 2011-12-01 00:33:00 Mendoza rial [place] Respitory Rate 2011-12-01 00:33:00 Memori al [place] Heart Rate 2011-12-01 00:33:00 [facility] [place] Diastolic (mm Hg) 2011-12-01 00:33:00 Mem orial [place] Temperature Oral (F) 2011-12-01 00:33:00 99.6 F [facility] [place] Diastolic (mm Hg) 2011-11-30 21:00:00 Mem orial [place] Heart Rate 2011-11-30 21:00:00 [facility] Respitory Rate 2011-11-30 21:00:00 Memori al [place] Systolic (mm Hg) 2011-11-30 21:00:00 Mendoza rial [place] Temperature Oral (F) 2011-11-30 21:00:00 99.8 F [facility] [place] Respitory Rate 2011-11-30 16:30:00 Memori al Vin Systolic (mm Hg) 2011-11-30 16:30:00 Mendoza rial Vin Diastolic (mm Hg) 2011-11-30 16:30:00 Mem orial Vin Heart Rate 2011-11-30 16:30:00 [facility] [place] Temperature Oral (F) 2011-11-30 16:30:00 99.8 F [facility] [place] Weight 2011-11-29 11:40:00 [facility] [place] Height 2011-11-29 11:40:00 157.48 cm [facility] Weight 2011-11-28 17:16:00 [facility] [place] Weight 2011-09-18 13:30:00 [facility] [place] Height 2011-09-18 13:30:00 154.94 cm [facility] Heart Rate 2011-09-09 13:31:00 [facility] [place] Systolic (mm Hg) 2011-09-09 13:02:00 Mendoza rial Vin Diastolic (mm Hg) 2011-09-09 13:02:00 Mem orial [place] Respitory Rate 2011-09-09 13:02:00 Memori al [place] Temperature Oral (F) 2011-09-09 13:02:00 97.5 F [facility] [place] Diastolic (mm Hg) 2011-09-09 08:00:00 Mem orial Vin Heart Rate 2011-09-09 08:00:00 [facility] Temperature Oral (F) 2011-09-09 08:00:00 98.6 F [facility] [place] Respitory Rate 2011-09-09 08:00:00 Memori al Vin Systolic (mm Hg) 2011-09-09 08:00:00 Mendoza rial [place] Respitory Rate 2011-09-09 04:55:00 Memori al Vin Diastolic (mm Hg) 2011-09-09 04:55:00 Mem orial [place] Systolic (mm Hg) 2011-09-09 04:55:00 Mendoza rial [place] Heart Rate 2011-09-09 04:55:00 [facility] [place] Temperature Oral (F) 2011-09-09 00:55:00 98.7 F [facility] Weight 2011-09-01 19:59:00 [facility] Height 2011-09-01 19:59:00 154.94 cm [facility] [place] Height 2011-09-01 07:01:00 154.94 cm [facility] Weight 2011-09-01 07:01:00 [facility] [place] Respitory Rate 2011-08-23 18:00:00 Memori al Vin Heart Rate 2011-08-23 18:00:00 [facility] [place] Systolic (mm Hg) 2011-08-23 18:00:00 Mendoza rial [place] Diastolic (mm Hg) 2011-08-23 18:00:00 Mem orial [place] Temperature Oral (F) 2011-08-23 18:00:00 97.7 F [facility] [place] Heart Rate 2011-08-23 14:24:00 [facility] Temperature Oral (F) 2011-08-23 14:24:00 98.2 F [facility] Diastolic (mm Hg) 2011-08-23 14:24:00 Mem orial Vin Systolic (mm Hg) 2011-08-23 14:24:00 Mendoza rial Vin Respitory Rate 2011-08-23 14:24:00 Memori al [place] Systolic (mm Hg) 2011-08-23 11:15:00 Mendoza rial [place] Diastolic (mm Hg) 2011-08-23 11:15:00 Mem orial Vin Temperature Oral (F) 2011-08-23 11:00:00 98.3 F [facility] Heart Rate 2011-08-23 11:00:00 [facility] Respitory Rate 2011-08-22 22:00:00 [facility] [place] Height 2011-08-20 09:12:00 154.94 cm [facility] Weight 2011-08-20 09:12:00 [facility] [place] Height 2011-08-19 20:28:00 154.94 cm [facility] [place] Weight 2011-08-19 20:28:00 [facility] Procedures Procedure Date / Time Performing Clinician Source Performed POC GLUCOSE 2021-06-18 17:00:00 Aurelio Schumacherist Ho spital HEPATITIS B SURFACE 2021-06-18 14:07:00 Bill Cooper [facility] ANTIGEN VANCOMYCIN LEVEL, RANDOM 2021-06-18 13:44:00 Char Viramontes [facility] HC COMPLETE BLD COUNT 2021-06-18 13:44:00 Aurelio Schumacher [facility] W/AUTO DIFF BASIC METABOLIC PANEL 2021-06-18 11:27:00 Aurelio Schumacher [facility] ESTIMATED GFR 2021-06-18 11:27:00 Ullah, Aurelio Whyte spital POC GLUCOSE 2021-06-18 08:07:00 Endy [facility]lio [facility] HEMODIALYSIS 2021-06-18 06:16:53 Bill Cooper spital POC GLUCOSE 2021-06-18 01:26:00 Endy Aurelio [facility] POC GLUCOSE 2021-06-17 21:58:00 Endy Aurelio Whyte Ho spital HEMODIALYSIS 2021-06-17 18:25:45 Bill Cooper Ho spital POC GLUCOSE 2021-06-17 17:36:00 Faiza Schumacherpallavi [facility] POC GLUCOSE 2021-06-17 13:51:00 Faiza Schumacherpallavi Whyte spital BASIC METABOLIC PANEL 2021-06-17 11:16:00 [facility] HC COMPLETE BLD COUNT 2021-06-17 11:16:00 [facility] W/AUTO DIFF ESTIMATED GFR 2021-06-17 11:16:00 [facility] POC GLUCOSE 2021-06-17 02:50:00 [facility] CONSULT TO OSTOMY CARE 2021-06-17 00:31:48 [facility] NURSE HC COMPLETE BLD COUNT 2021-06-16 23:31:00 [facility] W/AUTO DIFF BASIC METABOLIC PANEL 2021-06-16 23:31:00 [facility] ESTIMATED GFR 2021-06-16 23:31:00 [facility] POC GLUCOSE 2021-06-16 23:19:00 [facility] OR [place] < 1 HOUR 2021-06-16 22:49:00 [facility] 2021-06[facility]16 [facility] Diaz-Hsi FUNGUS CULTURE 2021-06-16 22:36:00 Mando Diaz [facility] DiazHsi AEROBIC CULTURE 2021-06-16 22:36:00 [facility]ando [facility]n [facility] STAIN 2021-06-16 22:36:00 [facility] [place] AN ELECTIVE 2021-06-16 21:30:00 Jocelyne Zepeda [facility] SUPRAGLOTTIC AIRWAY AORTOGRAPHY, POSSIBLE 2021-06-16 21:17:00 [facility] ANGI[facility]Y [place] POC , URINE 2021-06-16 20:46:00 [facility] POTASSIUM LEVEL 2021-06-16 17:28:00 Isabell Dickerson [facility] Larry Romero POC GLUCOSE 2021-06-16 11:39:00 [facility] BASIC METABOLIC PANEL 2021-06-16 10:08:00 [facility] HC COMPLETE BLD COUNT 2021-06-16 10:08:00 [facility] W/AUTO DIFF PROTHROMBIN TIME WITH INR 2021-06-16 10:08:00 [facility] PARTIAL THROMBOPLASTIN 2021-06-16 10:08:00 [facility] TIME (PTT) TYPE AND SCREEN 2021-06-16 10:08:00 [facility] ESTIMATED GFR 2021-06-16 10:08:00 [facility] POC GLUCOSE 2021-06-16 01:59:00 [facility] POC GLUCOSE 2021-06-15 22:58:00 [facility] COVID-19 QUALITATIVE 2021-06-15 19:29:00 [facility] RT-PCR POC GLUCOSE 2021-06-15 17:42:00 [facility] HEMODIALYSIS 2021-06-15 16:17:54 Delfino Akbar [facility] POC GLUCOSE 2021-06-15 15:41:00 [facility] POC GLUCOSE 2021-06-15 13:44:00 [facility] POC GLUCOSE 2021-06-15 13:00:00 [facility] ECG 12-LEAD 2021-06-15 12:48:21 Leni Barker Ho spital HC COMPLETE BLD COUNT 2021-06-15 11:42:00 [facility] W/AUTO DIFF BASIC METABOLIC PANEL 2021-06-15 11:42:00 [facility] ESTIMATED GFR 2021-06-15 11:42:00 [facility] POC GLUCOSE 2021-06-15 01:31:00 [facility] US DUPLEX ARTERIAL LOWER 2021-06-14 21:55:33 [facility] EXTREMITY RIGHT POC GLUCOSE 2021-06-14 21:51:00 [facility] POC GLUCOSE 2021-06-14 17:36:00 [facility] POC GLUCOSE 2021-06-14 13:30:00 [facility] POC GLUCOSE 2021-06-14 13:29:00 [facility] HC COMPLETE BLD COUNT 2021-06-14 10:13:00 [facility] W/AUTO DIFF BASIC METABOLIC PANEL 2021-06-14 10:13:00 [facility] ESTIMATED GFR 2021-06-14 10:13:00 [facility] POC GLUCOSE 2021-06-14 02:45:00 [facility] POC GLUCOSE 2021-06-13 21:47:00 [facility] POC GLUCOSE 2021-06-13 20:46:00 [facility] CBC WITH PLATELET AND 2021-06-13 16:10:00 Delfino Akbar [facility] DIFFERENTIAL COMPREHENSIVE METABOLIC 2021-06-13 16:10:00 [facility] PANEL ESTIMATED GFR 2021-06-13 16:10:00 [facility] HEMODIALYSIS 2021-06-13 15:26:35 [facility] POC GLUCOSE 2021-06-13 14:30:00 [facility] VANCOMYCIN LEVEL, RANDOM 2021-06-13 10:59:00 Juwan You [facility] POC GLUCOSE 2021-06-13 10:40:00 [facility] POC GLUCOSE 2021-06-13 02:28:00 [facility] POC GLUCOSE 2021-06-13 00:16:00 [facility] POC GLUCOSE 2021-06-12 23:31:00 [facility] POC GLUCOSE 2021-06-12 23:14:00 [facility] POC GLUCOSE 2021-06-12 18:19:00 [facility] POC GLUCOSE 2021-06-12 14:37:00 [facility] POC GLUCOSE 2021-06-12 14:01:00 [facility] POC GLUCOSE 2021-06-12 03:03:00 Holden Nagel spital [facility] CT HEAD WO CONTRAST 2021-06-12 00:53:00 Robe [facility] Ram[facility]rez POC GLUCOSE 2021-06-11 18:08:00 Holden Nagel Ho spital [place] POC GLUCOSE 2021-06-11 13:39:00 Holden Nagel Ho spital [place] HEMODIALYSIS 2021-06-11 12:38:[facility] 2021-06-11 02:01:00 Holden Nagel Ho spital [place] POC GLUCOSE 2021-06-10 22:15:00 Holden Nagel Ho spital [place] POC GLUCOSE 2021-06-10 17:39:00 Holden Nagel Ho spital [place] POC GLUCOSE 2021-06-10 16:05:00 Holden Nagel spital [place] TISSUE CULTURE 2021-06-10 15:08:00 Juwan You spital GRAM STAIN 2021-06-10 15:08:00 Kenyatta, Juwan Whyte spital ANAEROBIC CULTURE 2021-06-10 15:04:00 [facility] FUNGUS CULTURE 2021-06-10 15:04:00 Kenyatta, Juwan Ferrara spital AEROBIC CULTURE 2021-06-10 15:04:00 Kenyatta, Juwan Whyte spital AFB CULTURE 2021-06-10 15:04:00 Kenyatta, Juwan Whyte spital GRAM STAIN 2021-06-10 15:04:00 Kenyatta, Juwan Whyte spital AFB STAIN 2021-06-10 15:04:00 Kenyatta, Juwan Ferrara spital [place] AN ELECTIVE 2021-06-10 14:26:00 Sofi Roach spital SUPRAGLOTTIC AIRWAY Marquita INCISION AND DRAINAGE, 2021-06-10 14:26:00 Kenyatta, [facility] LOWER EXTREMITY HC COMPLETE BLD COUNT 2021-06-10 10:20:00 , [facility] W/AUTO DIFF BASIC METABOLIC PANEL 2021-06-10 10:20:00 , [facility] PROTHROMBIN TIME WITH INR 2021-06-10 10:20:00 [facility] PARTIAL THROMBOPLASTIN 2021-06-10 10:20:[address] [facility] TIME (PTT) TYPE AND SCREEN 2021-06-10 10:20:00 Holden Nagel spital [place] ESTIMATED GFR 2021-06-10 10:20:00 Juwan You spital POC GLUCOSE 2021-06-10 03:11:00 Holden Nagel spital [place] POC GLUCOSE 2021-06-10 01:30:00 Holden Ngael spital [place] POC GLUCOSE 2021-06-09 22:22:00 Holden Nagel spital [place] POC GLUCOSE 2021-06-09 13:55:00 Holden Nagel spital [place] HEMODIALYSIS 2021-06-09 13:20:01 [facility] VANCOMYCIN LEVEL, RANDOM 2021-06-09 11:46:00 [facility] POC GLUCOSE 2021-06-09 02:06:00 Holden Nagel spital [place] POC GLUCOSE 2021-06-08 22:23:00 Holden Nagel spital [place] POC GLUCOSE 2021-06-08 17:53:00 Holden Nagel spital [place] HC COMPLETE BLD COUNT 2021-06-08 16:06:00 [facility] W/AUTO DIFF POC GLUCOSE 2021-06-08 13:56:00 Holden Nagel spital [place] URINE CULTURE 2021-06-08 03:56:00 Holden Nagel spital [place] URINALYSIS SCREEN AND 2021-06-08 03:32:00 [facility] MICROSCOPY, WITH REFLEX TO CULTURE POC GLUCOSE 2021-06-08 01:15:00 Holden Nagel spital [place] POC GLUCOSE 2021-06-07 22:07:00 Holden Nagel spital [place] POC GLUCOSE 2021-06-07 18:01:00 Holden Nagel spital [place] BASIC METABOLIC PANEL 2021-06-07 14:15:00 [facility] ESTIMATED GFR 2021-06-07 14:15:00 Holden Nagel spital [place] POC GLUCOSE 2021-06-07 13:56:00 Holden Nagel spital [place] POC GLUCOSE 2021-06-07 02:54:00 [facility] LOWER EXTREMITY W 2021-06-07 01:22:59 [facility] CONTRAST RIGHT POC GLUCOSE 2021-06-06 23:50:00 Holden [facility]el [facility] POC GLUCOSE 2021-06-06 17:31:00 [facility]en [facility] HEMODIALYSIS 2021-06-06 15:05:52 Delfino Akbar [facility] POC GLUCOSE 2021-06-06 14:03:00 [facility]en [facility]el [facility] HC COMPLETE BLD COUNT 2021-06-06 10:31:00 [facility] W/AUTO DIFF BASIC METABOLIC PANEL 2021-06-06 10:31:00 [facility] ESTIMATED GFR 2021-06-06 10:31:00 Holden Nagel [facility] POC GLUCOSE 2021-06-06 10:14:00 [facility]en [facility]el [facility] POC GLUCOSE 2021-06-06 06:26:00 Holden Nagel spital Ramírez POC GLUCOSE 2021-06-06 02:41:00 Holden Nagel spital Ramírez POC GLUCOSE 2021-06-05 19:51:00 Holden Nagel spital Ramírez BASIC METABOLIC PANEL 2021-06-05 18:06:00 [facility] HC COMPLETE BLD COUNT 2021-06-05 18:06:00 [facility] W/AUTO DIFF ESTIMATED GFR 2021-06-05 18:06:00 Holden Nagel spital Ramírez POC GLUCOSE 2021-06-05 17:48:00 Holden Nagel marilyn Ramírez ANAEROBIC CULTURE 2021-06-05 17:10:00 Kenyatta [facility] ANAEROBIC CULTURE 2021-06-05 16:59:00 Kenyatta [facility] FUNGUS CULTURE 2021-06-05 16:59:00 Juwan You rajeshtal AEROBIC CULTURE 2021-06-05 16:59:00 Juwan You spital AFB CULTURE 2021-06-05 16:59:00 Juwan You FUNGUS SMEAR 2021-06-05 16:59:00 Juwan You rajeshtal AFB STAIN 2021-06-05 16:59:00 Juwan You spital [place] AN ELECTIVE 2021-06-05 16:52:08 Chandler Silverman [facility] SUPRAGLOTTIC AIRWAY TISSUE CULTURE 2021-06-05 16:50:00 Juwan You GRAM STAIN 2021-06-05 16:50:00 Juwan You DEBRIDEMENT, LOWER 2021-06-05 16:16:00 Kenyatta [facility] EXTREMITY POC GLUCOSE 2021-06-05 13:32:00 Holden Nagel mariyln Ramírez TROPONIN T 2021-06-05 10:58:00 [facility] ospital ABO AND RH CONFIRMATION BY 2021-06-05 10:54:00 [facility] PROTOCOL Vipin BASIC METABOLIC PANEL 2021-06-05 10:53:00 [facility] HC COMPLETE BLD COUNT 2021-06-05 10:53:00 [facility] W/AUTO DIFF ESTIMATED GFR 2021-06-05 10:53:00 Sivan Stewart [facility] PROTHROMBIN TIME WITH INR 2021-06-05 10:52:00 [facility] PARTIAL THROMBOPLASTIN 2021-06-05 10:52:00 [facility] TIME (PTT) HCG QUALITATIVE, SERUM 2021-06-05 10:52:00 Myron Fernandes Agustin [facility] SCREEN POC GLUCOSE 2021-06-05 09:40:00 Rachel Brasher spigabe Vipin BLOOD CULTURE, AEROBIC & 2021-06-05 08:27:00 Rachel Brasher [facility] ANAEROBIC Vipin POC GLUCOSE 2021-06-05 07:42:00 Rachel Brasher spital Vipin POC GLUCOSE 2021-06-05 06:57:00 Rachel Brasher spital Vipin POC GLUCOSE 2021-06-05 06:10:00 Holden Nagel Ramírez BLOOD CULTURE, AEROBIC & 2021-06-05 04:31:00 Rachel Brasher [facility] ANAEROBIC Vipin POC GLUCOSE 2021-06-05 04:04:00 Rachel Brasher Ho spital Vipin POC GLUCOSE 2021-06-05 03:51:00 Rachel Brasher Ho spital Vipin TYPE AND SCREEN 2021-06-05 03:40:00 Rachel Brasher spital Vipin POC GLUCOSE 2021-06-05 03:05:00 Rachel Brasher Ho spital Vipin POC GLUCOSE 2021-06-05 02:23:00 Rachel Brasher Ho spital Vipin COVID-19 QUALITATIVE 2021-06-05 02:08:00 [facility] HC COMPLETE BLD COUNT 2021-06-05 01:24:00 [facility]O DIFF PROTHROMBIN TIME WITH INR 2021-06-05 01:24:00 [facility] PARTIAL THROMBOPLASTIN 2021-06-05 01:24:00 [facility] TIME (PTT) COMPREHENSIVE METABOLIC 2021-06-05 01:24:00 [facility] PANEL CREATINE KINASE, TOTAL 2021-06-05 01:24:00 [facility] (CPK) B NATRIURETIC PEPTIDE 2021-06-05 01:24:00 [facility] TROPONIN T 2021-06-05 01:24:00 Char [facility]ont[facility] ospital ESTIMATED GFR 2021-06-05 01:24:00 [facility] ECG ED PRELIMINARY 2021-06-05 00:31:28 [facility] INTERPRETATION ECG 12-LEAD 2021-06-05 00:19:17 Rachel Brasher Ho spital Vipin POC GLUCOSE 2021-05-25 18:04:00 Marilu Koch [facility] POC GLUCOSE 2021-05-25 14:00:00 Awe, [facility] CBC HEMOGRAM 2021-05-25 10:12:00 [facility], [facility] BASIC METABOLIC PANEL 2021-05-25 10:12:00 Awe, [facility] ESTIMATED GFR 2021-05-25 10:12:00 Awe, [facility] POC GLUCOSE 2021-05-25 02:49:00 [facility], [facility] POC GLUCOSE 2021-05-24 23:33:00 [facility], [facility] POC GLUCOSE 2021-05-24 17:56:00 [facility], [facility] POC GLUCOSE 2021-05-24 13:59:00 Awe, [facility] CBC HEMOGRAM 2021-05-24 10:12:00 Awe, [facility] BASIC METABOLIC PANEL 2021-05-24 10:12:00 Awe, [facility] ESTIMATED GFR 2021-05-24 10:12:00 Awe, [facility] POC GLUCOSE 2021-05-24 09:59:00 Awe, [facility] POC GLUCOSE 2021-05-24 02:26:00 Awe, [facility] POC GLUCOSE 2021-05-24 00:03:00 Awe, [facility] TRANSFUSE RED BLOOD CELLS 2021-05-23 22:30:00 [facility] TRANSFUSE RED BLOOD CELLS 2021-05-23 21:30:00 [facility] POC GLUCOSE 2021-05-23 19:03:00 Awe, [facility] TYPE AND SCREEN 2021-05-23 14:38:00 [facility] HC COMPLETE BLD COUNT 2021-05-23 14:38:00 [facility] W/AUTO DIFF PREPARE RBC 2021-05-23 14:38:00 [facility] PREPARE PLATELET PHERESIS 2021-05-23 14:38:[address] [facility] POC GLUCOSE 2021-05-23 14:35:00 [facility] 2021-05-23 13:42:30 Delfino Akbar [facility] CBC HEMOGRAM 2021-05-23 12:31:00 [facility], [facility] BASIC METABOLIC PANEL 2021-05-23 12:31:00 Awe, [facility] ESTIMATED GFR 2021-05-23 12:31:00 Awe, [facility] POC GLUCOSE 2021-05-23 11:22:00 Awe, [facility] POC GLUCOSE 2021-05-23 03:30:00 Awe, [facility] POC GLUCOSE 2021-05-22 23:20:00 Awe, [facility] POC GLUCOSE 2021-05-22 17:20:00 Awe, [facility] POC GLUCOSE 2021-05-22 13:27:00 [facility], [facility] BASIC METABOLIC PANEL 2021-05-22 12:31:00 Nikki Haynes [facility] Rahel MAGNESIUM LEVEL 2021-05-22 12:31:00 Nikki Haynes ospigabe Rahel CBC HEMOGRAM 2021-05-22 12:31:00 Nikki Haynes ospital Rahel ESTIMATED GFR 2021-05-22 12:31:00 Nikki Haynes ospital Rahel POC GLUCOSE 2021-05-22 10:54:00 Awe, [facility] POC GLUCOSE 2021-05-22 07:28:00 Awe, [facility] POC GLUCOSE 2021-05-22 01:11:00 [facility], [facility] HEPATITIS B SURFACE 2021-05-21 21:08:00 [facility] ANTIBODY HEMODIALYSIS 2021-05-21 20:57:40 [facility] POC GLUCOSE 2021-05-21 17:57:00 Awe [facility] POC GLUCOSE 2021-05-21 13:55:00 Awe, [facility] POC GLUCOSE 2021-05-21 10:41:00 Tom Barber spigabe ZZCOVID-19 ANTI-SPIKE IGG 2021-05-21 07:43:00 Clyde Olmstead [facility] ANTIBODY TITER Esa BASIC METABOLIC PANEL 2021-05-21 07:43:00 [facility] Rahel MAGNESIUM LEVEL 2021-05-21 07:43:00 Claudy [facility] Mcginn[facility] CBC HEMOGRAM 2021-05-21 07:43:00 [place] [facility]audyNik[facility] Ra[facility] ZZCOVID-19 SEROLOGY 2021-05-21 07:43:00 Clyde Olmstead [facility] PATIENT SURVEILLANCE Esa ESTIMATED GFR 2021-05-21 07:43:00 Andre Sofia LACTIC ACID LEVEL 2021-05-21 07:43:00 Leodan Stevenson [facility] POC GLUCOSE 2021-05-21 06:35:00 Tom Barber COMPLETE BLD COUNT 2021-05-21 02:49:00 [facility] W/AUTO DIFF BASIC METABOLIC PANEL 2021-05-21 02:49:00 [facility] LACTIC ACID LEVEL 2021-05-21 02:49:00 [facility] OSMOLALITY, SERUM 2021-05-21 02:49:00 [facility] BETA HYDROXYBUTYRATE 2021-05-21 02:49:00 [facility] PROCALCITONIN 2021-05-21 02:49:00 [facility] ESTIMATED GFR 2021-05-21 02:49:00 [facility] POC GLUCOSE 2021-05-21 02:34:00 Tom Barber Ho spital HC COMPLETE BLD COUNT 2021-05-21 00:28:00 [facility] W/AUTO DIFF POC GLUCOSE 2021-05-20 23:57:00 Tom Barber Ho spital BASIC METABOLIC PANEL 2021-05-20 23:20:00 [facility] LACTIC ACID LEVEL 2021-05-20 23:20:00 [facility] ESTIMATED GFR 2021-05-20 23:20:00 Andre Sofia Ho [...] RED BLOOD CELLS 2021-05-20 17:21:00 Andre Sofia [facility] TRANSFUSE PLATELET 2021-05-20 15:52:00 [facility] PHERESIS BASIC METABOLIC PANEL 2021-05-20 15:25:00 Andre Sofia [facility] ESTIMATED GFR 2021-05-20 15:25:00 Andre Sofia Ho spital [place] POC GLUCOSE 2021-05-20 14:48:00 Tom Barber Ho spital HEMODIALYSIS 2021-05-20 11:31:20 [facility] POC GLUCOSE 2021-05-20 10:44:00 Tom Barber Ho spital HEPATITIS B SURFACE 2021-05-20 08:49:00 [facility] ANTIGEN HEPATITIS B SURFACE AB, 2021-05-20 08:49:00 [facility] QUANTITATIVE HC COMPLETE BLD COUNT 2021-05-20 08:25:00 [facility] W/AUTO DIFF BASIC METABOLIC PANEL 2021-05-20 08:25:00 [facility] MAGNESIUM LEVEL 2021-05-20 08:25:00 [facility] ospital PHOSPHORUS LEVEL 2021-05-20 08:25:00 [facility] PROTHROMBIN TIME WITH INR 2021-05-20 08:25:00 [facility] ESTIMATED GFR 2021-05-20 08:25:00 Juwan You spital HEMOGLOBIN A1C 2021-05-20 08:25:00 Nikki Haynes H ospital Rahel POC GLUCOSE 2021-05-20 06:34:00 Tom Barber spital ARTERIAL BLOOD GAS 2021-05-20 04:36:00 [facility] 12-LEAD 2021-05-20 03:42:28 Graham [facility] Ho spital PROTHROMBIN TIME WITH INR 2021-05-20 02:54:00 [facility] HC COMPLETE BLD COUNT 2021-05-20 02:54:00 [facility] W/AUTO DIFF BASIC METABOLIC PANEL 2021-05-20 02:54:00 [facility] 2021-05-20 02:54:00 Graham [facility] VENOUS BLOOD GAS 2021-05-20 02:54:00 Leodan Stevenson H ospital ESTIMATED GFR 2021-05-20 02:54:00 Leodan Stevenson spital POC GLUCOSE 2021-05-20 02:54:00 Tom Barber spital XR CHEST 1 VW PORTABLE 2021-05-20 02:51:13 Leodan Stevenson [facility] [place] < 1 HOUR 2021-05-20 01:30:15 Juwan You spital TRANSFUSE RED BLOOD CELLS 2021-05-20 00:59:00 Juwan oYu [facility] [place] AN ELECTIVE 2021-05-20 00:53:01 Sukhjinder Medina spital SUPRAGLOTTIC AIRWAY [place] INCISION AND DRAINAGE, 2021-05-20 00:45:00 Kenyatta [facility] HEMATOMA HC COMPLETE BLD COUNT 2021-05-19 22:13:00 [facility] W/AUTO DIFF BASIC METABOLIC PANEL 2021-05-19 22:13:00 [facility] PROTHROMBIN TIME WITH INR 2021-05-19 22:13:00 [facility] PARTIAL THROMBOPLASTIN 2021-05-19 22:13:00 [facility] TIME (PTT) MAGNESIUM LEVEL 2021-05-19 22:13:00 [facility] ESTIMATED GFR 2021-05-19 22:13:00 Juwan You spital POC GLUCOSE 2021-05-19 22:00:00 Errol Luther [facility] SURGICAL PATHOLOGY REQUEST 2021-05-19 21:47:00 Errol Luther [facility] POC GLUCOSE 2021-05-19 21:17:00 Juwan You spital ACTIVATED CLOTTING TIME 2021-05-19 19:12:00 Tom Barber [facility] [place] AN ELECTIVE 2021-05-19 18:11:04 Sukhjinder Medina spital SUPRAGLOTTIC AIRWAY [place] LOWER EXTREMITY 2021-05-19 17:59:00 Juawn You spital ANGIOGRAM,POSSIBLE ANGIOPLASTY,POSSIBLE STENT XR CHEST 1 VW PORTABLE 2021-05-19 15:47:37 Juwan You [facility] ESTIMATED GFR 2021-05-19 14:34:00 Juwan You spital POC PANEL 2021-05-19 14:34:00 Juwan You spital TYPE AND SCREEN 2021-05-19 14:05:00 Isabell Dickerson marilyn Romero PREPARE RBC 2021-05-19 14:05:00 [facility] PREPARE FRESH FROZEN 2021-05-19 14:05:00 [facility] PLASMA PREPARE PLATELET PHERESIS 2021-05-19 14:05:00 [facility] BASIC METABOLIC PANEL 2021-05-19 14:00:00 [facility] Larry Romero PROTHROMBIN TIME WITH INR 2021-05-19 14:00:00 [facility] Larry Romero HC COMPLETE BLD COUNT 2021-05-19 14:00:00 [facility] W/AUTO DIFF Larry Romero ABO AND RH CONFIRMATION BY 2021-05-19 14:00:00 [facility] PROT[facility]OL ESTIMATED GFR 2021-05-19 14:00:00 Isabell Dickerson [facility] Larry Romero COVID-19 QUALITATIVE 2021-05-19 12:40:00 Juwan You [facility] RT-PCR MEDICAL RELEASE/CLEARANCE 2021-05-13 06:01:00 Doctor Unassigned, [facility] FORMS [facility] US DUPLEX ARTERIAL LOWER 2021-05-12 15:21:31 Juwan You [facility] EXTREMITY BILATERAL Emergency department visit 2013-04-15 05:00:00 Deepali Banuelos for the evaluation and management of a patient, which requires these 3 kamara components within the constraints imposed by the urgency of the patient's clinical condition and/or mental status: A comprehensive history; A comprehensi Injection or Infusion of 2013-04-15 05:00:00 Mem orial Bagley Other Therapeutic or Prophylactic Substance Intravenous infusion, 2013-04-15 05:00:00 Memori al Bagley hydration; each additional hour (List separately in [...] [facility] EGD [facility] (esophagogastroduodenoscop y) gastric outlet reduction section [facility] Jake n Tubal ligation [facility] 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 Plan of Care Planned Activity Planned Date Details Comments Source Future Scheduled 2022-11-12 HEPATITIS B VACCINES Met [facility] Test 20:50:47 (1 of 3 - 3-dose series) [code = HEPATITIS B VACCINES (1 of 3 - 3-dose series)] Future Scheduled 2022-11-12 COVID-19 VACCINE (#1) [facility] Test 20:50:47 [code = COVID-19 VACCINE (#1)] Future Scheduled 2022-11-12 Pneumococcal Vaccine: [facility] Test 20:50:47 Pediatrics (0 to 5 Years) and At-Risk Patients (6 to 64 Years) (1 - PCV) [code = Pneumococcal Vaccine: Pediatrics (0 to 5 Years) and At-Risk Patients (6 to 64 Years) (1 - PCV)] Future Scheduled 2022-11-12 Hepatitis C screening [facility] Test 20:50:47 (procedure) [code = 733500188] Future Scheduled 2022-11-12 [facility] Test 20:50:47 malignant neoplasm of cervix (procedure) [code = [id number]] Future Scheduled 2022-11-12 BREAST CANCER [facility] Test 20:50:47 SCREENING [code = BREAST CANCER SCREENING] Future Scheduled 2022-11-12 INFLUENZA VACCINE [facility] Test 20:50:47 [code = INFLUENZA VACCINE] Future Scheduled 2022-11-12 HEPATITIS B VACCINES Met [facility] Test 20:50:47 (1 of 3 - 3-dose series) [code = HEPATITIS B VACCINES (1 of 3 - 3-dose series)] Future Scheduled 2022-11-12 COVID-19 VACCINE (#1) [facility] [place] Hospital Test 20:50:47 [code = COVID-19 VACCINE (#1)] Future Scheduled 2022-11-12 Pneumococcal Vaccine: [facility] [place] Hospital Test 20:50:47 Pediatrics (0 to 5 Years) and At-Risk Patients (6 to 64 Years) (1 - PCV) [code = Pneumococcal Vaccine: Pediatrics (0 to 5 Years) and At-Risk Patients (6 to 64 Years) (1 - PCV)] Future Scheduled 2022-11-12 Hepatitis C screening [facility] [place] Hospital Test 20:50:47 (procedure) [code = [id number]] Future Scheduled 2022-11-12 [facility] Test 20:50:47 malignant neoplasm of cervix (procedure) [code = [id number]] Future Scheduled 2022-11-12 [facility]AST CANCER [facility] Test 20:50:47 SCREENING [code = BREAST CANCER SCREENING] Future Scheduled 2022-11-12 INFLUENZA VACCINE [facility] Test 20:50:47 [code = INFLUENZA VACCINE] Future Scheduled 2022-11-12 HEPATITIS B VACCINES Met [facility] Hospital Test 20:50:47 (1 of 3 - 3-dose series) [code = HEPATITIS B VACCINES (1 of 3 - 3-dose series)] Future Scheduled 2022-11-12 COVID-19 VACCINE (#1) [facility] [place] Hospital Test 20:50:47 [code = COVID-19 VACCINE (#1)] Future Scheduled 2022-11-12 Pneumococcal Vaccine: [facility] [place] [place] Hospital Test 20:50:47 Pediatrics (0 to 5 Years) and At-Risk Patients (6 to 64 Years) (1 - PCV) [code = Pneumococcal Vaccine: Pediatrics (0 to 5 Years) and At-Risk Patients (6 to 64 Years) (1 - PCV)] Future Scheduled 2022-11-12 Hepatitis C screening [facility] [place] Hospital Test 20:50:47 (procedure) [code = [id number]] Future Scheduled 2022-11-12 [facility] Test 20:50:47 malignant neoplasm of cervix (procedure) [code = 178556443] Future Scheduled 2022-11-12 BREAST CANCER [facility] Test 20:50:47 SCREENING [code = BREAST CANCER SCREENING] Future Scheduled 2022-11-12 INFLUENZA VACCINE [facility] Test 20:50:47 [code = INFLUENZA VACCINE] Future Scheduled 2022-10-23 HEPATITIS B VACCINES Met [facility] Test 05:16:19 (1 of 3 - 3-dose series) [code = HEPATITIS B VACCINES (1 of 3 - 3-dose series)] Future Scheduled 2022-10-23 COVID-19 VACCINE (#1) [facility] Test 05:16:19 [code = COVID-19 VACCINE (#1)] Future Scheduled 2022-10-23 Pneumococcal Vaccine: [facility] Test 05:16:19 Pediatrics (0 to 5 Years) and At-Risk Patients (6 to 64 Years) (1 - PCV) [code = Pneumococcal Vaccine: Pediatrics (0 to 5 Years) and At-Risk Patients (6 to 64 Years) (1 - PCV)] Future Scheduled 2022-10-23 Hepatitis C screening [facility] Test 05:16:19 (procedure) [code = [id number]] Future Scheduled 2022-10-23 Screening for [facility] Test 05:16:19 malignant neoplasm of cervix (procedure) [code = 254039866] Future Scheduled 2022-10-23 BREAST CANCER [facility] Test 05:16:19 SCREENING [code = BREAST CANCER SCREENING] Future Scheduled 2022-10-23 INFLUENZA VACCINE Method [facility] Test 05:16:19 [code = INFLUENZA VACCINE] Future Scheduled 2022-06-11 HEPATITIS B VACCINES Met [facility] Test 02:09:30 (1 of 3 - 3-dose series) [code = HEPATITIS B VACCINES (1 of 3 - 3-dose series)] Future Scheduled 2022-06-11 COVID-19 VACCINE (#1) [facility] Test 02:09:30 [code = COVID-19 VACCINE (#1)] Future Scheduled 2022-06-11 Pneumococcal Vaccine: [facility] Test 02:09:30 Pediatrics (0 to 5 Years) and At-Risk Patients (6 to 64 Years) (1 - PCV) [code = Pneumococcal Vaccine: Pediatrics (0 to 5 Years) and At-Risk Patients (6 to 64 Years) (1 - PCV)] Future Scheduled 2022-06-11 Hepatitis C screening [facility] Test 02:09:30 (procedure) [code = 358019770] Future Scheduled 2022-06-11 Screening for [facility] Test 02:09:30 malignant neoplasm of cervix (procedure) [code = 049811410] Future Scheduled 2022-06-11 [facility] VACCINE [facility] Test 02:09:30 [code = INFLUENZA VACCINE] Future Scheduled 2022-06-11 HEPATITIS B VACCINES Met [facility] Test 02:09:30 (1 of 3 - 3-dose series) [code = HEPATITIS B VACCINES (1 of 3 - 3-dose series)] Future Scheduled 2022-06-11 COVID-19 VACCINE (#1) [facility] Test 02:09:30 [code = COVID-19 VACCINE (#1)] Future Scheduled 2022-06-11 Pneumococcal Vaccine: [facility] Test 02:09:30 Pediatrics (0 to 5 Years) and At-Risk Patients (6 to 64 Years) (1 - PCV) [code = Pneumococcal Vaccine: Pediatrics (0 to 5 Years) and At-Risk Patients (6 to 64 Years) (1 - PCV)] Future Scheduled 2022-06-11 Hepatitis C screening [facility] Test 02:09:30 (procedure) [code = 581841972] Future Scheduled 2022-06-11 Screening for [facility] Test 02:09:30 malignant neoplasm of cervix (procedure) [code = 862724858] Future Scheduled 2022-06-11 INFLUENZA VACCINE Method [facility] Test 02:09:30 [code = INFLUENZA VACCINE] Future Scheduled 2022-06-11 HEPATITIS B VACCINES Met [facility] Test 02:09:30 (1 of 3 - 3-dose series) [code = HEPATITIS B VACCINES (1 of 3 - 3-dose series)] Future Scheduled 2022-06-11 COVID-19 VACCINE (#1) [facility] Test 02:09:30 [code = COVID-19 VACCINE (#1)] Future Scheduled 2022-06-11 Pneumococcal Vaccine: [facility] Test 02:09:30 Pediatrics (0 to 5 Years) and At-Risk Patients (6 to 64 Years) (1 - PCV) [code = Pneumococcal Vaccine: Pediatrics (0 to 5 Years) and At-Risk Patients (6 to 64 Years) (1 - PCV)] Future Scheduled 2022-06-11 Hepatitis C screening [facility] Test 02:09:30 (procedure) [code = 175671550] Future Scheduled 2022-06-11 Screening for [facility] Test 02:09:30 malignant neoplasm of cervix (procedure) [code = 723061200] Future Scheduled 2022-06-11 INFLU[facility]ZA VACCINE [facility] Test 02:09:30 [code = INFLUENZA VACCINE] Future Scheduled 2022-06-11 HEPATITIS B VACCINES Met [facility] Test 02:09:30 (1 of 3 - 3-dose series) [code = HEPATITIS B VACCINES (1 of 3 - 3-dose series)] Future Scheduled 2022-06-11 COVID-19 VACCINE (#1) [facility] Test 02:09:30 [code = COVID-19 VACCINE (#1)] Future Scheduled 2022-06-11 Pneumococcal Vaccine: [facility] Test 02:09:30 Pediatrics (0 to 5 Years) and At-Risk Patients (6 to 64 Years) (1 - PCV) [code = Pneumococcal Vaccine: Pediatrics (0 to 5 Years) and At-Risk Patients (6 to 64 Years) (1 - PCV)] Future Scheduled 2022-06-11 Hepatitis C screening [facility] Test 02:09:30 (procedure) [code = 787177373] Future Scheduled 2022-06-11 Screening for [facility] Test 02:09:30 malignant neoplasm of cervix (procedure) [code = 700392683] Future Scheduled 2022-06-11 INFLU[facility]ZA VACCINE [facility] Test 02:09:30 [code = INFLUENZA VACCINE] Future Scheduled 2022-06-11 HEPATITIS B VACCINES Met [facility] Test 02:09:30 (1 of 3 - 3-dose series) [code = HEPATITIS B VACCINES (1 of 3 - 3-dose series)] Future Scheduled 2022-06-11 COVID-19 VACCINE (#1) [facility] Test 02:09:30 [code = COVID-19 VACCINE (#1)] Future Scheduled 2022-06-11 Pneumococcal Vaccine: [facility] Test 02:09:30 Pediatrics (0 to 5 Years) and At-Risk Patients (6 to 64 Years) (1 - PCV) [code = Pneumococcal Vaccine: Pediatrics (0 to 5 Years) and At-Risk Patients (6 to 64 Years) (1 - PCV)] Future Scheduled 2022-06-11 Hepatitis C screening [facility] Test 02:09:30 (procedure) [code = 156813443] Future Scheduled 2022-06-11 Screening for [facility] Test 02:09:30 malignant neoplasm of cervix (procedure) [code = 941159935] Future Scheduled 2022-06-11 INFLUENZA VACCINE Method [facility] Test 02:09:30 [code = INFLUENZA VACCINE] Future Scheduled 2022-06-11 HEPATITIS B VACCINES Met [facility] Test 02:09:30 (1 of 3 - 3-dose series) [code = HEPATITIS B VACCINES (1 of 3 - 3-dose series)] Future Scheduled 2022-06-11 COVID-19 VACCINE (#1) [facility] Test 02:09:30 [code = COVID-19 VACCINE (#1)] Future Scheduled 2022-06-11 Pneumococcal Vaccine: [facility] Test 02:09:30 Pediatrics (0 to 5 Years) and At-Risk Patients (6 to 64 Years) (1 - PCV) [code = Pneumococcal Vaccine: Pediatrics (0 to 5 Years) and At-Risk Patients (6 to 64 Years) (1 - PCV)] Future Scheduled 2022-06-11 Hepatitis C screening [facility] Test 02:09:30 (procedure) [code = 942035655] Future Scheduled 2022-06-11 Screening for [facility] Test 02:09:30 malignant neoplasm of cervix (procedure) [code = 880878545] Future Scheduled 2022-06-11 INFLUENZA VACCINE Method [facility] Test 02:09:30 [code = INFLUENZA VACCINE] Future Scheduled 2022-06-11 HEPATITIS B VACCINES Met [facility] Test 02:09:30 (1 of 3 - 3-dose series) [code = HEPATITIS B VACCINES (1 of 3 - 3-dose series)] Future Scheduled 2022-06-11 COVID-19 VACCINE (#1) [facility] Test 02:09:30 [code = COVID-19 VACCINE (#1)] Future Scheduled 2022-06-11 Pneumococcal Vaccine: [facility] Test 02:09:30 Pediatrics (0 to 5 Years) and At-Risk Patients (6 to 64 Years) (1 - PCV) [code = Pneumococcal Vaccine: Pediatrics (0 to 5 Years) and At-Risk Patients (6 to 64 Years) (1 - PCV)] Future Scheduled 2022-06-11 Hepatitis C screening [facility] Test 02:09:30 (procedure) [code = 972272001] Future Scheduled 2022-06-11 Screening for [facility] Test 02:09:30 malignant neoplasm of cervix (procedure) [code = 322550920] Future Scheduled 2022-06-11 INFLUENZA VACCINE Method [facility] Test 02:09:30 [code = INFLUENZA VACCINE] Future Scheduled 2022-06-01 HEPATITIS B VACCINES Met [facility] Test 16:17:59 (1 of 3 - 3-dose series) [code = HEPATITIS B VACCINES (1 of 3 - 3-dose series)] Future Scheduled 2022-06-01 COVID-19 VACCINE (#1) [facility] Test 16:17:59 [code = COVID-19 VACCINE (#1)] Future Scheduled 2022-06-01 Pneumococcal Vaccine: [facility] Test 16:17:59 Pediatrics (0 to 5 Years) and At-Risk Patients (6 to 64 Years) (1 - PCV) [code = Pneumococcal Vaccine: Pediatrics (0 to 5 Years) and At-Risk Patients (6 to 64 Years) (1 - PCV)] Future Scheduled 2022-06-01 Hepatitis C screening [facility] Test 16:17:59 (procedure) [code = 879081555] Future Scheduled 2022-06-01 Screening for [facility] Test 16:17:59 malignant neoplasm of cervix (procedure) [code = 264555159] Future Scheduled 2022-06-01 INFLUENZA VACCINE Method [facility] Test 16:17:59 [code = INFLUENZA VACCINE] Future Scheduled 2022-04-25 HEPATITIS B VACCINES Met [facility] Test 12:43:16 (1 of 3 - 3-dose series) [code = HEPATITIS B VACCINES (1 of 3 - 3-dose series)] Future Scheduled 2022-04-25 COVID-19 VACCINE (#1) [facility] Test 12:43:16 [code = COVID-19 VACCINE (#1)] Future Scheduled 2022-04-25 Pneumococcal Vaccine: [facility] Test 12:43:16 Pediatrics (0 to 5 Years) and At-Risk Patients (6 to 64 Years) (1 - PCV) [code = Pneumococcal Vaccine: Pediatrics (0 to 5 Years) and At-Risk Patients (6 to 64 Years) (1 - PCV)] Future Scheduled 2022-04-25 Hepatitis C screening [facility] Test 12:43:16 (procedure) [code = 203917852] Future Scheduled 2022-04-25 Screening for [facility] Test 12:43:16 malignant neoplasm of cervix (procedure) [code = 749859721] Future Scheduled 2022-04-25 INFLUENZA VACCINE Method [facility] Test 12:43:16 [code = INFLUENZA VACCINE] Future Scheduled 2022-02-27 HEPATITIS B VACCINES Met [facility] Test 05:24:42 (1 of 3 - 3-dose series) [code = HEPATITIS B VACCINES (1 of 3 - 3-dose series)] Future Scheduled 2022-02-27 COVID-19 VACCINE (#1) [facility] Test 05:24:42 [code = COVID-19 VACCINE (#1)] Future Scheduled 2022-02-27 Pneumococcal Vaccine: [facility] Test 05:24:42 Pediatrics (0 to 5 Years) and At-Risk Patients (6 to 64 Years) (1 - PCV) [code = Pneumococcal Vaccine: Pediatrics (0 to 5 Years) and At-Risk Patients (6 to 64 Years) (1 - PCV)] Future Scheduled 2022-02-27 Hepatitis C screening [facility] Test 05:24:42 (procedure) [code = 396648339] Future Scheduled 2022-02-27 Screening for [facility] Test 05:24:42 malignant neoplasm of cervix (procedure) [code = 967910707] Future Scheduled 2022-02-27 INFLUENZA VACCINE Method [facility] Test 05:24:42 [code = INFLUENZA VACCINE] Future Scheduled 2022-02-27 HEPATITIS B VACCINES Met [facility] Test 05:24:42 (1 of 3 - 3-dose series) [code = HEPATITIS B VACCINES (1 of 3 - 3-dose series)] Future Scheduled 2022-02-27 COVID-19 VACCINE (#1) [facility] Test 05:24:42 [code = COVID-19 VACCINE (#1)] Future Scheduled 2022-02-27 Pneumococcal Vaccine: [facility] Test 05:24:42 Pediatrics (0 to 5 Years) and At-Risk Patients (6 to 64 Years) (1 - PCV) [code = Pneumococcal Vaccine: Pediatrics (0 to 5 Years) and At-Risk Patients (6 to 64 Years) (1 - PCV)] Future Scheduled 2022-02-27 Hepatitis C screening [facility] Test 05:24:42 (procedure) [code = 150410529] Future Scheduled 2022-02-27 Screening for [facility] Test 05:24:42 malignant neoplasm of cervix (procedure) [code = 873955216] Future Scheduled 2022-02-27 INFLUENZA VACCINE Method [facility] Test 05:24:42 [code = INFLUENZA VACCINE] Future Scheduled 2022-02-27 HEPATITIS B VACCINES Met [facility] Test 05:24:42 (1 of 3 - 3-dose series) [code = HEPATITIS B VACCINES (1 of 3 - 3-dose series)] Future Scheduled 2022-02-27 COVID-19 VACCINE (#1) [facility] Test 05:24:42 [code = COVID-19 VACCINE (#1)] Future Scheduled 2022-02-27 Pneumococcal Vaccine: [facility] Test 05:24:42 Pediatrics (0 to 5 Years) and At-Risk Patients (6 to 64 Years) (1 - PCV) [code = Pneumococcal Vaccine: Pediatrics (0 to 5 Years) and At-Risk Patients (6 to 64 Years) (1 - PCV)] Future Scheduled 2022-02-27 Hepatitis C screening [facility] Test 05:24:42 (procedure) [code = 407652756] Future Scheduled 2022-02-27 Screening for [facility] Test 05:24:42 malignant neoplasm of cervix (procedure) [code = 507620555] Future Scheduled 2022-02-27 INFLUENZA VACCINE Method [facility] Test 05:24:42 [code = INFLUENZA VACCINE] Future Scheduled 2022-02-27 HEPATITIS B VACCINES Met [facility] Test 05:24:42 (1 of 3 - 3-dose series) [code = HEPATITIS B VACCINES (1 of 3 - 3-dose series)] Future Scheduled 2022-02-27 COVID-19 VACCINE (#1) [facility] Test 05:24:42 [code = COVID-19 VACCINE (#1)] Future Scheduled 2022-02-27 Pneumococcal Vaccine: [facility] Test 05:24:42 Pediatrics (0 to 5 Years) and At-Risk Patients (6 to 64 Years) (1 - PCV) [code = Pneumococcal Vaccine: Pediatrics (0 to 5 Years) and At-Risk Patients (6 to 64 Years) (1 - PCV)] Future Scheduled 2022-02-27 Hepatitis C screening [facility] Test 05:24:42 (procedure) [code = 851503636] Future Scheduled 2022-02-27 Screening for [facility] Test 05:24:42 malignant neoplasm of cervix (procedure) [code = 871780068] Future Scheduled 2022-02-27 INFLUENZA VACCINE Method [facility] Test 05:24:42 [code = INFLUENZA VACCINE] Future Scheduled 2022-02-27 HEPATITIS B VACCINES Met [facility] Test 05:24:42 (1 of 3 - 3-dose series) [code = HEPATITIS B VACCINES (1 of 3 - 3-dose series)] Future Scheduled 2022-02-27 COVID-19 VACCINE (#1) [facility] Test 05:24:42 [code = COVID-19 VACCINE (#1)] Future Scheduled 2022-02-27 Pneumococcal Vaccine: [facility] Test 05:24:42 Pediatrics (0 to 5 Years) and At-Risk Patients (6 to 64 Years) (1 - PCV) [code = Pneumococcal Vaccine: Pediatrics (0 to 5 Years) and At-Risk Patients (6 to 64 Years) (1 - PCV)] Future Scheduled 2022-02-27 Hepatitis C screening [facility] Test 05:24:42 (procedure) [code = 439313568] Future Scheduled 2022-02-27 Screening for [facility] Test 05:24:42 malignant neoplasm of cervix (procedure) [code = 055121137] Future Scheduled 2022-02-27 INFLUENZA VACCINE Method [facility] Test 05:24:42 [code = INFLUENZA VACCINE] Future Scheduled 2022-02-27 HEPATITIS B VACCINES Met [facility] Test 05:24:42 (1 of 3 - 3-dose series) [code = HEPATITIS B VACCINES (1 of 3 - 3-dose series)] Future Scheduled 2022-02-27 COVID-19 VACCINE (#1) [facility] Test 05:24:42 [code = COVID-19 VACCINE (#1)] Future Scheduled 2022-02-27 Pneumococcal Vaccine: [facility] Test 05:24:42 Pediatrics (0 to 5 Years) and At-Risk Patients (6 to 64 Years) (1 - PCV) [code = Pneumococcal Vaccine: Pediatrics (0 to 5 Years) and At-Risk Patients (6 to 64 Years) (1 - PCV)] Future Scheduled 2022-02-27 Hepatitis C screening [facility] Test 05:24:42 (procedure) [code = 842711067] Future Scheduled 2022-02-27 Screening for [facility] Test 05:24:42 malignant neoplasm of cervix (procedure) [code = 682352568] Future Scheduled 2022-02-27 INFLUENZA VACCINE Method [facility] Test 05:24:42 [code = INFLUENZA VACCINE] Future Scheduled 2022-02-27 HEPATITIS B VACCINES Met [facility] Test 05:24:42 (1 of 3 - 3-dose series) [code = HEPATITIS B VACCINES (1 of 3 - 3-dose series)] Future Scheduled 2022-02-27 COVID-19 VACCINE (#1) [facility] Test 05:24:42 [code = COVID-19 VACCINE (#1)] Future Scheduled 2022-02-27 Pneumococcal Vaccine: [facility] Test 05:24:42 Pediatrics (0 to 5 Years) and At-Risk Patients (6 to 64 Years) (1 - PCV) [code = Pneumococcal Vaccine: Pediatrics (0 to 5 Years) and At-Risk Patients (6 to 64 Years) (1 - PCV)] Future Scheduled 2022-02-27 Hepatitis C screening [facility] Test 05:24:42 (procedure) [code = 615718890] Future Scheduled 2022-02-27 Screening for [facility] Test 05:24:42 malignant neoplasm of cervix (procedure) [code = 210101404] Future Scheduled 2022-02-27 INFLUENZA VACCINE Method [facility] Test 05:24:42 [code = INFLUENZA VACCINE] Future Scheduled 2022-02-27 HEPATITIS B VACCINES Met [facility] Test 05:24:42 (1 of 3 - 3-dose series) [code = HEPATITIS B VACCINES (1 of 3 - 3-dose series)] Future Scheduled 2022-02-27 COVID-19 VACCINE (#1) [facility] Test 05:24:42 [code = COVID-19 VACCINE (#1)] Future Scheduled 2022-02-27 Pneumococcal Vaccine: [facility] [place] [place] [facility] Test 05:24:42 Pediatrics (0 to 5 Years) and At-Risk Patients (6 to 64 Years) (1 - PCV) [code = Pneumococcal Vaccine: Pediatrics (0 to 5 Years) and At-Risk Patients (6 to 64 Years) (1 - PCV)] Future Scheduled 2022-02-27 Hepatitis C screening [facility] [place] [place] [facility] Test 05:24:42 (procedure) [code = 530402402] Future Scheduled 2022-02-27 Screening for [facility] Test 05:24:42 malignant neoplasm of cervix (procedure) [code = 947362602] Future Scheduled 2022-02-27 [facility]FLU[facility]ZA [facility]ACCINE [facility] Test 05:24:42 [code = INFLUENZA VACCINE] Future Scheduled 2021-07-22 COVID-19 VACCINE (1) Met [facility] Test 13:11:04 [code = COVID-19 VACCINE (1)] Future Scheduled 2021-07-22 Hepatitis C screening [facility] Test 13:11:04 (procedure) [code = 756429281] Future Scheduled 2021-07-22 Screening for [facility] Test 13:11:04 malignant neoplasm of cervix (procedure) [code = 928998818] Future Scheduled 2021-07-22 INFLUENZA VACCINE [facility] Test 13:11:04 [code = INFLUENZA VACCINE] Encounters Start End Encounter Admission Attending Care Care Encounter Source Date/Time Date/Time Type Type Clinicians Facility Department ID 2022-08-28 Outpatient [facility] [id number] [place] 10:54:07 [id number] [facility] 2022-04-29 Outpatient [facility] [id number] [place] 09:02:27 [id number] [facility] 2022-04-28 Outpatient [facility] [id number] [place] 12:17:07 [id number] [facility] 2021-12-29 Outpatient [facility] [id number] [place] 11:56:31 [id number] [facility] 2021-12-19 Outpatient [facility] [id number] [place] 14:05:12 [id number] [facility] 2021-12-12 Outpatient [facility] [id number] [place] 12:11:07 [id number] [facility] 2021-12-05 Outpatient [facility] [id number] [place] 20:09:51 [id number] [facility] 2021-10-28 Outpatient [facility] [id number] [place] 17:04:[id number] [place] [address] 2021-07-22 Outpatient nullFlavo [facility] [id number] Memoria 00:10:30 r Medical 05 l [facility] 2021-07-22 Preadmit nullFlavo [id number] Memoria 00:10:30 r [facility] [address] [place] 2021-07-22 Outpatient nullFlavo [facility] [id number] Memoria 00:10:30 r Medical 06 l [facility] 2021-04-22 Emergency [facility] [id number] Univers 02:13:03 ity [facility] 2021-04-18 Emergency [facility] [id number] Univers 22:32:23 [facility] 2021-04-17 Emergency [facility] [id number] Univers 17:46:08 [facility] 2022-10-24 2022-10-24 Outpatient Daniels_b DMG DMG [id number] -2022 [facility] 00:00:00 00:00:00 0506 [facility] 2022-08-28 2022-08-28 Outpatient Daniels_b DMG DMG [id number] -2022 [facility] 00:00:00 00:00:00 0310 [facility] l [facility] 2022-08-28 2022-08-28 Outpatient Daniels_b DMG DMG [id number] [facility] 00:00:00 00:00:00 0315 [facility] l [facility] 2022-04-09 2022-04-09 Outpatient Nodal_J DMG DMG [id number] 022 [facility] 00:00:00 00:00:00 1020 [facility] l Group 2022-01-02 2022-01-02 Outpatient Deshazo_T DMG DMG [id number] -2021 [facility] 03:37:00 03:37:00 0715 Medica l Group 2021-12-15 2021-12-15 Outpatient [facility] [id number] [place] 08:00:00 08:00:00 [employer] [employer] 2021-12-02 2021-12-02 Travel 1.2.840.1 1.2.313.046 [id number] Methodi 00:00:00 00:00:[address] 3.430.2.7 0.2.7.3.698 Ho spita .3.423193 084.8 l .8 2021-12-02 2021-12-02 Travel 1.2.840.1 1.2.728.538 1308 [id number] Methodi 00:00:00 00:00:[address] 3.430.2.7 0.2.7.3.698 Ho spita .3.817932 084.8 l .8 2021-11-13 2021-11-13 Transcribe Aglieco, 1.2.840.1 [id number] Methodi 00:00:00 00:00:00 Orders Jose Miguel Hearn 27187.1.[address] 3.430.2.7 Hospit a .3.816686 l .8 2021-11-05 2021-11-05 Outpatient Deshazo_T [facility] [id number] -2021 [facility] 12:00:00 12:00:00 0518 Medica l Group 2021-10-29 2021-10-29 Telephone Rosy, 1.2.840.1 [id number] Methodi 00:00:00 00:00:[address] Mohamed 3.430.2.7 Hospit a .3.377206 l .8 2021-08-20 2021-08-20 Outpatient Deshazo_T [facility] [id number] -2021 [facility] 12:30:00 12:30:00 0302 Medica l Group 2021-07-08 2021-07-08 Office Ann, 1.2.840.1 [id number] Methodi 13:00:00 14:25:36 Visit Bessie 84933.1.[address] [place] 3.430.2.7 Hosp jo-ann .3.803074 l .8 2021-07-08 2021-07-08 Telephone Anthony, 1.2.840.1 [id number] 2100 [id number] Methodi 00:00:00 00:00:[address] 3.430.2.7 Hospit a .3.610344 l .8 2021-07-08 2021-07-08 Travel 1.2.840.1 1.2.541.512 8593 [id number] Methodi 00:00:00 00:00:[address] 3.430.2.7 0.2.7.3.698 Ho spita .3.148490 084.8 l .8 2021-07-03 2021-07-03 CAV Melany 2.16.840. 2.16.840.1. CLAC [id number] [facility] 19:00:00 20:00:00 Vladimir 1.613819. 525183.4.6. 467 Medical 4.6.99183 [id number] 2021-07-03 2021-07-03 Telephone Seth 1.2.840.1 [id number] 2100 [id number] Methodi 00:00:00 00:00:[address] [place] 3.430.2.7 Hosp jo-ann .3.323072 l .8 2021-06-24 2021-06-24 Outpatient Deshazo_T [facility] [id number] -2021 [facility] 05:31:00 05:31:00 0104 Medica l Group 2021-06-23 2021-06-23 Telephone Anthony 1.2.840.1 [id number] 2100 [id number] Methodi 00:00:00 00:00:[address] 3.430.2.7 Hospit a .3.244003 l .8 2021-06-04 2021-06-18 [facility] SamantaSivan 1.2.840.1 [id number] Methodi 18:20:00 18:13:00 Rachel Sky 95154.1.[address] Nagel, Holden Ramírez 3.430.2.7 Hospita Shanda Shahid .3.442457 l Aurelio Schumacher .8 2021-06-16 2021-06-16 Anesthesia Yousif, 1.2.840.1 [id number] Methodi 23:59:59 23:59:59 Event Alesia Coelho 60239.1.[address] 3.430.2.7 Hospit a .3.925880 l .8 2021-06-16 2021-06-16 Surgery Joe, 1.2.840.1 [id number] Methodi 13:30:00 17:45:[address] Joe-Hsi 3.430.2.7 Hosp jo-ann .3.662875 l .8 2021-06-16 2021-06-16 Anesthesia Jose Carlos, 1.2.840.1 [id number] 826 [id number] Methodi 15:19:00 17:19:00 Event Veto 84822.1.1 309 s t V. 3.430.2.7 Hospit a .3.838791 l .8 2021-06-10 2021-06-10 Surgery Juwan You 1.2.840.1 [id number] [id number] Methodi 08:00:00 10:30:[address] 3.430.2.7 Hospit a .3.245806 l .8 2021-06-10 2021-06-10 Anesthesia Doc, 1.2.840.1 [id number] [id number] Methodi 08:26:00 09:40:00 Event Sofi 81671.1.[address] Marquita 3.430.2.7 Hosp jo-ann .3.496036 l .8 2021-06-09 2021-06-09 Prep for Robert, 1.2.840.1 [id number] Methodi 00:00:00 00:00:00 Surgery Gayle 30530.1.[address] 3.430.2.7 Hospit a .3.631141 l .8 2021-06-09 2021-06-09 Prep for Robert, 1.2.840.1 [id number] [id number] Methodi 00:00:00 00:00:00 Surgery Gayle 25375.1.[address] 3.430.2.7 Hospit a .3.284343 l .8 2021-06-05 2021-06-05 Anesthesia Frankie Chowdhury 1.2.840.1 [id number] Methodi 10:16:00 11:41:00 Event Chandler Silverman 21798.1.[address] 3.430.2.7 Hospit a .3.345496 l .8 2021-06-05 2021-06-05 Surgery Juwan You 1.2.840.1 [id number] 71416 76163 Methodi 09:30:00 11:05:[address] 3.430.2.7 Hospit a .3.042519 l .8 2021-06-03 2021-06-03 Prep for Anthony, 1.2.840.1 [id number] Methodi 00:00:00 00:00:00 Surgery Forrest 10921.1.[address] 3.430.2.7 Hospit a .3.021281 l .8 2021-06-03 2021-06-03 Telephone Ureña, 1.2.840.1 [id number] Methodi 00:00:00 00:00:00 Crysandria 56965.1.1 218 s t 3.430.2.7 Hospit a .3.560902 l .8 2021-05-28 2021-05-28 Outpatient Adams_R DM DMG [id number] 021 [facility] 05:00:00 05:00:00 1208 Medica l Group 2021-05-27 2021-05-27 Patient Tam, 1.2.840.1 [id number] Methodi 00:00:00 00:00:00 Outreach Maria M 08495.1.[address] 3.430.2.7 Hospit a .3.441689 l .8 2021-05-27 2021-05-27 Travel 1.2.840.1 1.2.723.089 5794 [id number] Methodi 00:00:00 00:00:[address] 3.430.2.7 0.2.7.3.698 Ho spita .3.777092 084.8 l .8 2021-05-27 2021-05-27 Orders Boles, 1.2.840.1 [id number] 2100 [id number] Methodi 00:00:00 00:00:00 Only Anila 50469.1.[address] 3.430.2.7 Hospit a .3.096859 l .8 2021-05-26 2021-05-26 Outpatient Adams_R [facility] [place] [place] [id number] 021 [facility] 03:30:00 03:30:00 1206 Medica l Group 2021-05-26 2021-05-26 Telephone Anthony, 1.2.840.1 [id number] 2099 [id number] Methodi 00:00:00 00:00:[address] 3.430.2.7 Hospit a .3.306285 l .8 2021-05-19 2021-05-25 Hospital KenyattaJuwan 1.2.840.1 [id number] 2099 [id number] Methodi 06:00:00 15:59:00 Encounter Tom Barber 01462.1.[address] August, Mariluedil Nicholsodun 3.430.2.7 Hospita .3.422757 l .8 2021-05-21 2021-05-21 [id number] 03:30:00 03:30:00 1201 Medica l Group 2021-05-19 2021-05-19 Anesthesia Adam, 1.2.840.1 [id number] Methodi 18:45:00 20:31:00 Event Sukhjinder 57670.1.[address] Kendall 3.430.2.7 Hospit a .3.859509 l .8 2021-05-19 2021-05-19 Surgery KenyattaJuwan 1.2.840.1 [id number] 19008 68558 Methodi 18:50:00 19:55:[address] 3.430.2.7 Hospit a .3.357389 l .8 2021-05-19 2021-05-19 Anesthesia Adam, Sukhjinder Argueta 1.2.840.1 [id number] Methodi 12:00:00 15:14:00 Event Hanane Ledezma 45166.1.[address] 3.430.2.7 Hospit a .3.582444 l .8 2021-05-19 2021-05-19 Surgery Juwan You 1.2.840.1 [id number] 57819 Methodi 12:05:00 14:45:[address] 3.430.2.7 Hospit a .3.330873 l .8 2021-05-19 2021-05-19 Travel 1.2.840.1 1.2.905.639 9204 280406 Methodi 00:00:00 00:00:[address] 3.430.2.7 0.2.7.3.698 Ho spita .3.923115 084.8 l .8 2021-05-14 2021-05-14 Telephone Corin, 1.2.840.1 [id number] 21 [id number] Methodi 00:00:00 00:00:[address] 3.430.2.7 Hospit a .3.576645 l .8 2021-05-14 2021-05-14 Prep for Anthony, 1.2.840.1 [id number] Methodi 00:00:00 00:00:00 Surgery Forrest 12335.1.[address] 3.430.2.7 Hospit a .3.147668 l .8 2021-05-13 2021-05-13 Orders Doctor JOANNA 1.2.840.114 [id number] Univers 00:00:00 00:00:00 Only Unassigned, MAGDALENO 350.1.13.10 ity of [place] [facility] 4.2.7.2.686 Baljinder as 736.4706769 [address] 2021-05-12 2021-05-12 Office Juwan You 1.2.840.1 [id number] Methodi 09:00:00 09:32:[address] 3.430.2.7 Hospit a .3.123562 l .8 2021-05-12 2021-05-12 Outpatient KENYATTAASHLEYY [facility] [id number] 4574 [place] 00:00:00 00:00:[address] 2021-05-12 2021-05-12 Telephone Anthony, 1.2.840.1 [id number] Methodi 00:00:00 00:00:[address] 3.430.2.7 Hospit a .3.759223 l .8 2021-05-12 2021-05-12 Travel 1.2.840.1 1.2.100.566 2881 025153 Methodi 00:00:00 00:00:[address] 3.430.2.7 0.2.7.3.698 Ho spita .3.496063 084.8 l .8 2021-05-08 2021-05-08 Orders Anthony, 1.2.840.1 [id number] 9423 Methodi 00:00:00 00:00:00 Only Forrest 20126.1.[address] 3.430.2.7 Hospit a .3.372075 l .8 2021-05-08 2021-05-08 Telephone Boles, 1.2.840.1 [id number] Methodi 00:00:00 00:00:[address] 3.430.2.7 Hospit a .3.702653 l .8 2021-05-05 2021-05-05 Office Juwan You 1.2.840.1 [id number] 48937 Methodi 14:00:00 15:41:[address] 3.430.2.7 Hospit a .3.591917 l .8 2021-05-05 2021-05-05 Travel 1.2.840.1 1.2.445.067 2617 704852 Methodi 00:00:00 00:00:[address] 3.430.2.7 0.2.7.3.698 Ho spita .3.463644 084.8 l .8 2021-05-01 2021-05-01 Telephone Diaz, 1.2.840.1 [id number] [id number] Methodi 00:00:00 00:00:[address] [facility] 3.430.2.7 Hosp jo-ann .3.023112 l .8 2021-04-08 2021-04-08 Outpatient Eduin [facility] [id number] Univers 09:00:00 09:00:00 MONA ity of [facility] 2021-03-24 2021-03-24 Transition Misha Garcia 1.2.840.114 [id number] Univers 00:00:00 00:00:00 of Care Missy Guzman 350.1.13.10 it y [place] [id number] [place] [address] Branch 2021-03-19 2021-03-21 [facility] Jimena Easton 1.2.840.1 [id number] Univers 08:24:00 23:08:00 Encounter Eze Dias 09079.1.1 ity of [place] 3.104.2.7 [place] .3.183006 Medica l .8 Branch 2021-03-21 2021-03-21 Outpatient DMG DMG [id number] 021 Devoted 08:01:00 08:01:00 1001 Medica l Group 2021-03-19 2021-03-19 Orders Doctor 1.2.840.8 [id number] Univers 00:00:00 00:00:00 Only Unassigned, 35441.1.1 ity of [place] 3.104.2.7 [place] .3.130801 Medica l .8 Branch 2021-03-19 2021-03-19 Travel 1.2.840.1 1.2.864.716 5293 [id number] Univers 00:00:00 00:00:00 47459.1.1 350.1.13.10 ity 3.104.2.7 4.[place].7.3.698 [place] .3.207300 084.8 Medica l .8 Branch 2021-01-21 2021-01-29 Inpatient [facility] [id number] [facility] 15:50:00 20:14:00 r Bagley 12 [facility] 2021-01-21 2021-01-29 Outpatient Aydee, [facility] [id number] 10:50:00 15:14:00 Monisha 12 2021-01-21 2021-01-29 Inpatient [facility] [facility] [address] [facility] 10:50:00 15:14:00 MONISHA 2021-01-24 2021-01-24 [id number] [facility] 08:00:00 08:00:00 0806 Medica l Group 2021-01-21 2021-01-21 Outpatient Aydee, [facility] [id number] 10:50:00 10:50:00 Monisha 12 2021-01-03 2021-01-03 Office DOMINIQUE Diane 1.2.840.114 [id number] 07:44:43 09:30:54 Visit Alexandr ALTMAN 350.1.13.58 MEDICAL 9.2.7.2.686 [facility] [phone] 1 2021-01-03 2021-01-03 Office DOMINIQUE Diane 1.2.840.114 [id number] [place] 07:44:43 09:30:54 Visit Alexandr ALTMAN 350.1.13.58 H [facility] MEDICAL 9.2.7.2.686 [facility] [id number] 1 2020-12-26 2020-12-26 Outpatient Eduin KIMBLE [facility] [id number] Univers 10:30:00 10:30:00 SENDIL ity of [facility] 2020-12-24 2020-12-25 Outpatient nullFlavo Digest[facility] [id number] Memoria 15:32:00 04:59:00 r Disease 11 l Center Vin 2020-12-24 2020-12-24 Outpatient Wright, [facility] [id number] 10:32:00 23:59:00 Hui Madden 2020-12-24 2020-12-24 Outpatient WRIGHT, [facility] [address] [facility] 10:32:00 23:59:00 AMES 2020-11-12 2020-11-12 Outpatient R CARLOS [facility] [id number] Univers 09:00:00 09:00:00 WENTONG ity [facility] 2020-10-27 2020-10-27 [facility] 1.2.840.114 [id number] 00:00:00 00:00:00 (Out) Oz Lehman 350.1.13.10 [place] 4.2.7.2.686 Professio [phone] [address] 2020-10-27 2020-10-27 [facility] 1.2.840.114 [id number] Univers 00:00:00 00:00:00 (Out) Oz Lehman 350.1.13.10 it[place] of [place] [phone] [place] dic[address] 2020-10-24 2020-10-24 Orders Doctor JOANNA 1.2.840.114 [id number] 00:00:00 00:00:00 Only Unassigned, MAGDALENO 350.1.13.10 [place] [facility] 4.2.7.2.686 [id number] [id number] 2020-10-24 2020-10-24 Orders Doctor JOANNA 1.2.840.114 [id number] Univers 00:00:00 00:00:00 Only Unassigned, MAGDALENO 350.1.13.10 ity of [place] [facility] 4.2.7.2.686 Baljinder as [phone] [address] 2020-09-24 2020-09-24 [facility]ill [facility] 1.2.840.114 [id number] 00:00:00 00:00:00 Wentong Bliss 350.1.13.10 [place] 4.2.7.2.686 Professio [phone] nal 220 [facility] 2020-09-24 2020-09-24 Refill [facility] 1.2.840.114 [id number] Univers 00:00:00 00:00:00 Wentong Bliss 350.1.13.10 i ty of [place] [phone] Me dical nal [address] 2020-09-09 2020-09-09 [facility] 1.2.840.114 [id number] 00:00:00 00:00:00 Outreach Earl PRIMARY 350.1.13.10 [place] CARE 4.2.7.2.686 PAVILLION [phone] 388 2020-09-09 2020-09-09 [facility] 1.2.840.114 [id number] Univers 00:00:00 00:00:00 Outreach Earl PRIMARY 350.1.13.10 i ty of [place] [phone] [place] dical [address] 2020-08-06 2020-08-06 Out[facility] [id number] Univers 14:30:00 14:30:00 [facility] 2020-08-05 2020-08-05 Outpatient R BLACK [facility] [id number] Univers 13:30:00 13:30:00 DEJA ity [facility] 2020-07-23 2020-07-23 [facility] 1.2.840.114 [id number] Univers 13:39:08 23:59:00 Encounter Deja PRIMARY 350.1.13.10 ity of [place].2.[place] [phone] [place] dical [address] 2020-07-23 2020-07-23 Office [employer] 1.2.118.569 [id number] 13:31:20 14:37:36 Visit Deja PRIMARY 350.1.13.10 A CARE 4.2.7.2.686 PAVILLION [phone] 198 2020-07-23 2020-07-23 Office [facility] 1.2.636.[id number] [facility] 13:31:20 14:37:36 Visit Deja PRIMARY 350.1.13.10 ity of [place] [phone] [address] 2020-07-23 2020-07-23 Outpatient R [facility] [id number] Univers 13:30:00 13:30:00 DEJA ity [facility] 2020-07-09 2020-07-09 Outpatient R [facility] [id number] Univers 09:00:00 09:00:00 ity [facility] 2020-07-03 2020-07-03 Telephone [facility] 1.2.166.[id number] [facility] 00:00:00 00:00:00 Oz Lehman 350.1.13.10 it[place] of [place] [phone] [place] dic[address] 2020-06-27 2020-06-27 Office [facility] 1.2.840.114 [id number] Univers 10:05:43 11:00:00 Visit Oz Lehman 350.1.13.10 ity of [place].2.7.2.[place] [phone] [place] dical nal 059 [facility] 2020-06-27 2020-06-27 [facility] 1.2.840.114 [id number] Univers 10:05:43 11:00:00 Visit Oz LEHMAN 350.1.13.10 ity of [place].2.7.2.[place] PROFESS[place] [phone] [place] dical NAL 9 [facility] 2020-06-27 2020-06-27 Outpatient R LAMIN [facility] [id number] Univers 09:30:00 11:00:00 SENDIL ity of [facility] 2020-06-27 2020-06-27 Outpatient R LAMIN [facility] [id number] Univers 09:30:00 09:30:00 SENDIL ity [facility] 2020-05-28 2020-05-28 Laboratory Pc, Adc Echo Room 1 - [facility] 1 .2.840.114 [id number] Univers 08:01:11 08:48:06 Only Oz Kimble 350.1.13. 10 it[place] of [place] [phone] [place] dical nal 059 [facility] 2020-05-28 2020-05-28 Outpatient R [facility] [id number] Univers 08:00:00 08:00:00 ity of [facility] 2020-05-10 2020-05-10 Nurse Visit, Adc Nurse [facility] 1.2.840.1 14 [id number] Univers 08:31:07 08:43:46 Visit Oz Kimble 350.1.13. 10 it[place] of [place].2.7.2.[place] [phone] [place] dical nal 059 [facility] 2020-05-10 2020-05-10 Outpatient [facility] [id number] Univers 08:30:00 08:30:00 SENDIL ity of [facility] 2020-05-07 2020-05-07 Outpatient R [facility] [id number] Univers 08:00:00 08:00:00 ity of [facility] 2020-05-01 2020-05-01 Office [facility] 1.2.840.114 [id number] Univers 11:02:55 12:04:48 Visit Jose Luis Lehman 350.1.13.10 i ty of [place].2.[place] [phone] [place] dical nal 220 [facility] 2020-05-01 2020-05-01 Outpatient [facility] [id number] Univers 10:30:00 10:30:00 WENTONG ity [facility] 2020-04-25 2020-04-25 Office [facility] 1.2.840.114 [id number] Univers 10:07:58 10:48:50 Visit Oz TicoJose FCarmel Levi 350.1.13.10 ity of [place] [phone] [place] dical nal 059 [facility] 2020-04-25 2020-04-25 Outpatient [facility] [id number] Univers 10:00:00 10:00:00 SENDIL ity [facility] 2020-04-25 2020-04-25 Orders Doctor JOANNA 1.2.840.114 [id number] Univers 00:00:00 00:00:00 Only Unassigned, MAGDALENO 350.1.13.10 ity of [place] [facility] 4.2.7.2.686 Baljinder as [phone] [address] 2020-04-05 2020-04-05 Outpatient [facility] [id number] Univers 09:30:00 09:30:00 SENDIL ity [facility] 2020-04-03 2020-04-03 Medical Parasitologist 2, Adc Lab [facility] 1.2.840.114 [id number] Univers 13:13:38 13:28:38 Visit Mona Bhat 350.1.13.10 ity [facility] [place].2.[place].2.[place] [phone] [place] dical nal 353 [facility] 2020-04-03 2020-04-03 Outpatient R CASEY, [facility] [id number] Univers 13:00:00 13:00:00 MONA ity [facility] 2020-04-02 2020-04-02 Office [facility] 1.2.840.114 [id number] Univers 09:00:33 09:54:22 Visit Mona Lehman 350.1.13.10 ity of [place].2.[place] [phone] [place] dical nal 134 [facility] 2020-04-02 2020-04-02 Outpatient R [facility] [id number] Univers 08:30:00 08:30:00 MONA low [facility] 2020-04-02 2020-04-02 Outpatient [facility] [id number] Univers 08:30:00 08:30:00 MONA low [facility] 2020-04-02 2020-04-02 Emergency [facility] .2.840.114 [id number] Univers 00:24:00 01:09:00 Marlin Lehman 350.1.13.10 i ty of [place].2.[place] [phone] [facility] [address] 2020-04-02 2020-04-02 Orders Doctor JOANNA 1.2.840.114 [id number] Univers 00:00:00 00:00:00 Only Unassigned, MAGDALENO 350.1.13.10 ity of [place] [facility] 4.2.7.2.686 Baljinder as [phone] [facility] [address] 2020-03-16 2020-03-16 Telephone [facility] 1.2.840.114 [id number] Univers 00:00:00 00:00:00 Yury Lehman 350.1.13.10 i ty of [place].2.[place] [phone] [place] dical nal 134 [facility] 2020-03-08 2020-03-08 [facility] [id number] Univers 11:00:00 11:00:00 LIMA low o f [facility] 2020-03-07 2020-03-07 Telephone [facility] 1.2.840.114 [id number] Univers 00:00:00 00:00:00 Lima Lehman 350.1.13.10 ity of [place].2.[place] [phone] [facility] 188 [facility] 2020-02-06 2020-02-06 Outpatient R [facility] [id number] Univers 09:30:00 09:30:00 BRANDON low [facility] 2020-02-06 2020-02-06 Office [facility] 1.2.840.114 [id number] Univers 08:57:01 09:24:05 Visit Brandon Lehman 350.1.13.10 i ty of [place].2.7.2.[place] [facility] [phone] [place] dical [facility] 044 [facility] 2020-01-25 2020-01-31 Inpatient 1 Rei Waldron [facility] GPY [id number] 21:31:00 18:15:00 Rei Waldron [facility] 2020-01-24 2020-01-24 Outpatient R [facility] [id number] Univers 09:45:00 09:45:00 HUMAIR ity [facility] 2020-01-23 2020-01-23 Outpatient R [facility] [id number] Univers 10:30:00 10:30:00 [facility] 2019-12-18 2019-12-18 Outpatient R [facility] [id number] Univers 08:00:00 08:00:00 YISSEL [facility] 2019-12-04 2019-12-04 Outpatient Eduin [facility]DEN[facility] [id number] Univers 14:15:00 14:15:00 BRANDON [facility] 2019-11-06 2019-11-06 Telemedicviraj Rust, [facility] 1.2.840.114 [id number] Univers 07:49:37 08:46:52 ne Visit Yissel Y 350.1.13.10 ity of [facility] 4.2.7.2.686 [facility] as [facility] [phone] [facility] BLDG. [address] 2019-11-06 2019-11-06 Outpatient Eduin [facility] [id number] Univers 08:00:00 08:00:00 YISSEL shoy [facility] 2019-10-01 2019-10-01 Emergency [facility] 1.2.110.206 [id number] Univers 15:47:29 19:01:00 Stacie Lehman 350.1.13.10 i ty of [place].7.2.[place] [phone] [place] [address] 2019-09-05 2019-09-05 Outpatient R ERICSARAHYARPITA [facility] [id number] Univers 13:30:00 13:30:00 BRANDON ity [facility] 2019-08-28 2019-08-28 Outpatient R ZEKE RUVALCABA [facility] [id number] Univers 15:00:00 15:00:00 ity [facility] 2019-02-27 2019-02-27 Telephone [facility] 1.2.840.114 [id number] Univers 00:00:00 00:00:00 Adán Nix SPECIALTY 350.1.13.10 it[place] C[place] AT [phone] [facility] 188 [facility] 2019-02-25 2019-02-25 Telephone [facility] 1.2.840.114 [id number] Univers 00:00:00 00:00:00 Adán Nix SPECIALTY 350.1.13.10 it[place] AT [phone] [facility] 205 [facility] 2019-02-22 2019-02-22 [facility] Oz Kimble 1.2.8 40.114 [id number] Univers 09:19:22 23:59:00 Encounter Outpt-Josy, [facility] [place] 350.1.13.10 ity of Hospital 4.2.7.2.686 Baljinder as [phone] [address] 2019-02-22 2019-02-22 [facility] 1.[facility].8 40.114 [id number] Univers 08:00:00 09:18:00 Encounter Outpt-Josy, [facility] [place] 350.1.13.10 ity of Hospital 4.2.7.2.686 Baljinder as [phone] [address] 2019-02-17 2019-02-17 Office Putrosalie [facility] 1.2.840.114 [id number] Univers 13:09:08 13:54:39 Visit Gary gray [facility] 350.1.13.10 ity of [place].2.[place] C[place] [phone] [address] 2019-02-17 2019-02-17 Orders Doctor JOANNA 1.2.840.114 [id number] Univers 00:00:00 00:00:00 Only Unassigned, MAGDALENO 350.1.13.10 ity of [place] HOSPITAL 4.2.7.2.686 Baljinder as [phone] [facility] [address] 2019-01-25 2019-01-25 Telephone Traci Kimble 1.2.518.901 [id number] Univers 00:00:00 00:00:00 Oz [place] 350.1.13.10 ity of Hospital 4.2.7.2.686 Baljinder as [phone] [facility] [address] 2019-01-25 2019-01-25 Telephone Traci Kimble 1.2.997.537 [id number] Univers 00:00:00 00:00:00 Oz [place] 350.1.13.10 ity of Hospital 4.2.7.2.686 Baljinder as [phone] [facility] [address] 2019-01-20 2019-01-20 Office Lamin [facility] 1.2.840.114 [id number] Univers 08:55:54 09:56:43 Visit Oz Lehman 350.1.13.10 ity of [place].2.[place] [phone] [place] dical nal [address] [facility] 2019-01-14 2019-01-15 Emergency [place], TRAUMA 1.2.840.114 [id number] Univers 18:20:35 00:24:00 [facility] 350.1.13.10 it y of [place]2.[place] [phone] [facility] [address] 2019-01-13 2019-01-13 Office Digna [facility] 1.2.840.114 [id number] Univers 08:10:44 09:19:41 Visit Lima Lehman 350.1.13.10 ity of [place] 4.[place].2.[place] [phone] [place] dical nal [address] 2018-05-24 2018-05-24 Outpatient ELLIE [facility] [id number] [facility] 00:00:00 00:00:00 LY 2016-07-24 2016-07-30 Inpatient nullFlavo [facility] [id number] Memoria 02:04:00 16:20:[address] 2016-07-23 2016-07-30 Outpatient Yaquelin, [facility] [id number] 20:04:00 10:20:00 Luna 10 2016-06-10 2016-06-15 Inpatient nullFlavo [facility] [id number] Memoria 16:02:00 18:23:[address] 2016-06-10 2016-06-15 Outpatient Franck, [facility] [id number] 10:02:00 12:23:00 Joe aYn 09 2014-06-26 2014-06-26 EC nullFlavo [facility] [id number] Memoria 05:25:00 15:14:00 Emergency r Bagley 08 [facility] 2014-06-25 2014-06-26 Outpatient Ostermayer, 2.16.840. 2.16.840. 1. [id number] 23:25:00 09:14:00 Atul 1.238748. [id number] Cem 3.615.0.1 5.0.747 79 7922-10-25 2013-04-15 Outpatient 2.16.840. 2.16.840.1. 4 [id number] Memoria 21:04:00 01:45:00 1.398347. [id number] 07 l 3.615.0.1 5.0.101 Jake n [facility] 2013-04-14 2013-04-15 Outpatient 2.16.840. 2.16.840.1. 4 [id number] Memoria 21:04:00 01:45:00 1.605455. [id number] 07 l 3.615.0.1 5.0.101 Jake n [facility] 2013-04-14 2013-04-15 Outpatient 2.16.840. 2.16.840.1. 4 [id number] Memoria 21:04:00 01:45:00 1.120173. [id number] 07 l 3.615.0.1 5.0.101 Jake n 01 [facility] 2013-04-14 2013-04-15 Outpatient 2.16.840. 2.16.840.1. 4 [id number] Memoria 21:04:00 01:45:00 1.700146. [id number] 07 l 3.615.0.1 5.0.101 Jake n 01 [facility] 2013-04-14 2013-04-15 Outpatient 2.16.840. 2.16.840.1. 4 [id number] Memoria 21:04:00 01:45:00 1.226345. [id number] 07 l 3.615.0.1 5.0.101 Jake n [facility] 2013-04-14 2013-04-15 Emergency nullFlavo [id number] Memoria 21:04:00 01:45:[address] 2012-03-14 2012-03-14 Emergency nullFlavo [id number] Memoria 16:32:00 22:39:[address] 2011-11-28 2011-11-30 OU nullFlavo [facility] [id number] Memoria 12:16:00 20:40:00 [facility] 03 [facility] 2011-09-18 2011-09-18 Emergency nullFlavo [facility] [id number] Memoria 08:23:00 13:34:00 [facility] 02 [facility] 2011-09-01 2011-09-09 Inpatient nullFlavo [facility] [id number] Memoria 01:40:00 15:00:00 [facility] 01 [facility] 2011-08-19 2011-08-23 Inpatient nullFlavo [facility] [id number] Memoria 14:25:00 15:28:00 [facility] 00 [facility] Results Test Description Test Time Test Comments Results Result Comments Source AFB culture 2021-07-22 18:13:19 Test Item Value Reference Range Interpretation Comme nts AFB culture isolate No growth after 6 weeks of Specimen InformationSpecimen (test code = 543-9) incubation. Source: DrainageSpecimen Site: Thigh: infected wound right thigh [facility] [id number] 18:13:19 Test Item Value Reference Range Interpretation Comments AFB culture No growth Specimen isolate (test after 6 weeks InformationSp ecimen code = 543-9) of Source: [place] geSpecimen incubation. Site: Thigh: in fected wound right [facility] [id number] 18:13:19 Test Item Value Reference Range Interpretation Comments AFB culture No growth Specimen isolate (test after 6 weeks InformationSp ecimen code = 543-9) of Source: [place] geSpecimen incubation. Site: Thigh: in fected wound right [facility] [id number] 18:13:19 Test Item Value Reference Range Interpretation Comments AFB culture No growth Specimen isolate (test after 6 weeks InformationSp ecimen code = 543-9) of Source: [place] geSpecimen incubation. Site: Thigh: in fected wound right [facility] [id number] 18:13:19 Test Item Value Reference Range Interpretation Comments AFB culture No growth Specimen isolate (test after 6 weeks InformationSp ecimen code = 543-9) of Source: [place] geSpecimen incubation. Site: Thigh: in fected wound right [facility] [id number] 18:13:19 Test Item Value Reference Range Interpretation Comments AFB culture No growth Specimen isolate (test after 6 weeks InformationSp ecimen code = 543-9) of Source: [place] geSpecimen incubation. Site: Thigh: in fected wound right [facility] [id number] 18:13:19 Test Item Value Reference Range Interpretation Comments AFB culture No growth Specimen isolate (test after 6 weeks InformationSp ecimen code = 543-9) of Source: [place] geSpecimen incubation. Site: Thigh: in fected wound right [facility] [id number] 18:13:19 Test Item Value Reference Range Interpretation Comments AFB culture No growth Specimen isolate (test after 6 weeks InformationSp ecimen code = 543-9) of Source: [place] geSpecimen incubation. Site: Thigh: in fected wound right [facility] [id number] 18:13:19 Test Item Value Reference Range Interpretation Comments AFB culture No growth Specimen isolate (test after 6 weeks InformationSp ecimen code = 543-9) of Source: [place] geSpecimen incubation. Site: Thigh: in fected wound right [facility]2022-02-01 18:13:19 Test Item Value Reference Range Interpretation Comments AFB culture No growth Specimen isolate (test after 6 weeks InformationSp ecimen code = 543-9) of Source: [place] geSpecimen incubation. Site: Thigh: in fected wound right [facility] [id number] 18:13:19 Test Item Value Reference Range Interpretation Comments AFB culture No growth Specimen isolate (test after 6 weeks InformationSp ecimen code = 543-9) of Source: [place] geSpecimen incubation. Site: Thigh: in fected wound right [facility]2022-01-25 18:15:13 Test Item Value Reference Range Interpretation Comments Fungus culture No growth Specimen isolate (test after 4 weeks InformationSp ecimen code = 1441) of Source: TissueS pecimen incubation. Site: Thigh [facility]2022-01-25 18:15:13 Test Item Value Reference Range Interpretation Comments Fungus culture No growth Specimen isolate (test after 4 weeks InformationSp ecimen code = 1441) of Source: TissueS pecimen incubation. Site: Thigh [facility]2022-01-25 18:15:13 Test Item Value Reference Range Interpretation Comments Fungus culture No growth Specimen isolate (test after 4 weeks InformationSp ecimen code = 1441) of Source: TissueS pecimen incubation. Site: Thigh [facility]2022-01-25 18:15:13 Test Item Value Reference Range Interpretation Comments Fungus culture No growth Specimen isolate (test after 4 weeks InformationSp ecimen code = 1441) of Source: TissueS pecimen incubation. Site: [facility]2022-01-25 18:15:13 Test Item Value Reference Range Interpretation Comments Fungus culture No growth Specimen isolate (test after 4 weeks InformationSp ecimen code = 1441) of Source: TissueS pecimen incubation. Site: [place] [id number] 18:15:13 Test Item Value Reference Range Interpretation Comments Fungus culture No growth Specimen isolate (test after 4 weeks InformationSp ecimen code = 1441) of Source: TissueS pecimen incubation. Site: [facility]2022-01-25 18:15:13 Test Item Value Reference Range Interpretation Comments Fungus culture No growth Specimen isolate (test after 4 weeks InformationSp ecimen code = 1441) of Source: TissueS pecimen incubation. Site: [facility]2022-01-25 18:15:13 Test Item Value Reference Range Interpretation Comments Fungus culture No growth Specimen isolate (test after 4 weeks InformationSp ecimen code = 1441) of Source: TissueS pecimen incubation. Site: [facility]2022-01-25 18:15:13 Test Item Value Reference Range Interpretation Comments Fungus culture No growth Specimen isolate (test after 4 weeks InformationSp ecimen code = 1441) of Source: TissueS pecimen incubation. Site: [facility]2022-01-25 18:15:13 Test Item Value Reference Range Interpretation Comments Fungus culture No growth Specimen isolate (test after 4 weeks InformationSp ecimen code = 1441) of Source: TissueS pecimen incubation. Site: [facility]2022-01-25 18:15:13 Test Item Value Reference Range Interpretation Comments Fungus culture No growth Specimen isolate (test after 4 weeks InformationSp ecimen code = 1441) of Source: TissueS pecimen incubation. Site: [facility]2022-01-25 18:15:13 Test Item Value Reference Range Interpretation Comments Fungus culture No growth Specimen isolate (test after 4 weeks InformationSp ecimen code = 1441) of Source: TissueS pecimen incubation. Site: [facility]2022-01-25 18:15:13 Test Item Value Reference Range Interpretation Comments Fungus culture No growth Specimen isolate (test after 4 weeks InformationSp ecimen code = 1441) of Source: TissueS pecimen incubation. Site: [facility]2022-01-01 14:31:13 Test Item Value Reference Range Interpretation Comments Anaerobic No anaerobic Specimen culture isolate organisms InformationS pecimen (test code = isolated. Source: TissueS pecimen 552) Site: [place] 273772-01-01 14:31:13 Test Item Value Reference Range Interpretation Comments Anaerobic No anaerobic Specimen culture isolate organisms InformationS pecimen (test code = isolated. Source: TissueS pecimen 552) Site: [place] [address]-01-01 14:31:13 Test Item Value Reference Range Interpretation Comments Anaerobic No anaerobic Specimen culture isolate organisms InformationS pecimen (test code = isolated. Source: TissueS pecimen 552) Site: [address]01-01 14:31:13 Test Item Value Reference Range Interpretation Comments Anaerobic No anaerobic Specimen culture isolate organisms InformationS pecimen (test code = isolated. Source: TissueS pecimen 552) Site: [address]01-01 14:31:13 Test Item Value Reference Range Interpretation Comments Anaerobic No anaerobic Specimen culture isolate organisms InformationS pecimen (test code = isolated. Source: TissueS pecimen 552) Site: [place] 273772-01-01 14:31:13 Test Item Value Reference Range Interpretation Comments Anaerobic No anaerobic Specimen culture isolate organisms InformationS pecimen (test code = isolated. Source: TissueS pecimen 552) Site: [place] 273772-01-01 14:31:13 Test Item Value Reference Range Interpretation Comments Anaerobic No anaerobic Specimen culture isolate organisms InformationS pecimen (test code = isolated. Source: TissueS pecimen 552) Site: [place] 273772-01-01 14:31:13 Test Item Value Reference Range Interpretation Comments Anaerobic No anaerobic Specimen culture isolate organisms InformationS pecimen (test code = isolated. Source: TissueS pecimen 552) Site: [place] [address]-01-01 14:31:13 Test Item Value Reference Range Interpretation Comments Anaerobic No anaerobic Specimen culture isolate organisms InformationS pecimen (test code = isolated. Source: TissueS pecimen 552) Site: [place] [address]-01-01 14:31:13 Test Item Value Reference Range Interpretation Comments Anaerobic No anaerobic Specimen culture isolate organisms InformationS pecimen (test code = isolated. Source: [facility]) Site: [facility] [id number] 14:31:13 Test Item Value Reference Range Interpretation Comments Anaerobic No anaerobic Specimen culture isolate organisms InformationS pecimen (test code = isolated. Source: [facility] 552) Site: [facility]2022-01-01 14:31:13 Test Item Value Reference Range Interpretation Comments Anaerobic No anaerobic Specimen culture isolate organisms InformationS pecimen (test code = isolated. Source: [facility] 552) Site: [facility]2022-01-01 14:31:13 Test Item Value Reference Range Interpretation Comments Anaerobic No anaerobic Specimen culture isolate organisms InformationS pecimen (test code = isolated. Source: TissueS [facility] 552) Site: [facility]2021-12-31 16:51:58 Test Item Value Reference Range Interpretation Comments Gram stain No WBC's or Specimen isolate (test organisms seen. Information Specimen code = 1469) Source: [facility] Site: [facility]2021-12-31 16:51:58 Test Item Value Reference Range Interpretation Comments Aerobic culture No growth Specimen isolate (test after 3 days. InformationSp ecimen code = 498) Source: [facility] Site: [facility]2021-12-31 16:51:58 Test Item Value Reference Range Interpretation Comments Fungus smear No fungi Specimen (test code = observed. InformationSpec imen Source: 1443) [facility] Site: [facility]2021-12-31 16:51:58 Test Item Value Reference Range Interpretation Comments Gram stain No WBC's or Specimen isolate (test organisms seen. Information Specimen code = 1469) Source: [facility] Site: [facility] [id number] 16:51:58 Test Item Value Reference Range Interpretation Comments Aerobic culture No growth Specimen isolate (test after 3 days. InformationSp ecimen code = 498) Source: [facility] Site: [facility] [id number] 16:51:58 Test Item Value Reference Range Interpretation Comments Fungus smear No fungi Specimen (test code = observed. InformationSpec imen Source: 1443) [facility] Site: [facility] [id number] 16:51:58 Test Item Value Reference Range Interpretation Comments Gram stain No WBC's or Specimen isolate (test organisms seen. Information Specimen code = 1469) [facility]: [facility] [id number] 16:51:58 Test Item Value Reference Range Interpretation Comments Aerobic culture No growth Specimen isolate (test after 3 days. InformationSp ecimen code = 498) Source: [facility] [id number] 16:51:58 Test Item Value Reference Range Interpretation Comments Fungus smear No fungi Specimen (test code = observed. InformationSpec imen Source: 1443) TissueSpecime Site: [facility] [id number] 16:51:58 Test Item Value Reference Range Interpretation Comments Gram stain No WBC's or Specimen isolate (test organisms seen. Information Specimen code = 1469) Source: [facility] Site: [facility] [id number] 16:51:58 Test Item Value Reference Range Interpretation Comments Aerobic culture No growth Specimen isolate (test after 3 days. InformationSp ecimen code = 498) Source: [facility] [id number] 16:51:58 Test Item Value Reference Range Interpretation Comments Fungus smear No fungi Specimen (test code = observed. InformationSpec imen Source: 1443) [facility] [id number] 16:51:58 Test Item Value Reference Range Interpretation Comments Gram stain No WBC's or Specimen isolate (test organisms seen. Information Specimen code = 1469) Source: [facility] [id number] 16:51:58 Test Item Value Reference Range Interpretation Comments Aerobic culture No growth Specimen isolate (test after 3 days. InformationSp ecimen code = 498) Source: [facility] [id number] 16:51:58 Test Item Value Reference Range Interpretation Comments Fungus smear No fungi Specimen (test code = observed. InformationSpec imen Source: 1443) TissueSpecime Site: [facility] [id number] 16:51:58 Test Item Value Reference Range Interpretation Comments Gram stain No WBC's or Specimen isolate (test organisms seen. Information Specimen code = 1469) Source: [facility] [id number] 16:51:58 Test Item Value Reference Range Interpretation Comments Aerobic culture No growth Specimen isolate (test after 3 days. InformationSp ecimen code = 498) Source: [facility] [id number] 16:51:58 Test Item Value Reference Range Interpretation Comments Fungus smear No fungi Specimen (test code = observed. InformationSpec imen Source: 1443) TissueSpecime Site: [facility] [id number] 16:51:58 Test Item Value Reference Range Interpretation Comments Gram stain No WBC's or Specimen isolate (test organisms seen. Information Specimen code = 1469) Source: [facility] brdjchj1335-97-77 16:51:58 Test Item Value Reference Range Interpretation Comments Aerobic culture No growth Specimen isolate (test after 3 days. InformationSp ecimen code = 498) Source: [facility] [id number] 16:51:58 Test Item Value Reference Range Interpretation Comments Fungus smear No fungi Specimen (test code = observed. InformationSpec imen Source: 1443) TissueSpecime Site: [facility] [id number] 16:51:58 Test Item Value Reference Range Interpretation Comments Gram stain No WBC's or Specimen isolate (test organisms seen. Information Specimen code = 1469) Source: [facility] qpeghmz1281-20-70 16:51:58 Test Item Value Reference Range Interpretation Comments Aerobic culture No growth Specimen isolate (test after 3 days. InformationSp ecimen code = 498) Source: [facility] [id number] 16:51:58 Test Item Value Reference Range Interpretation Comments Fungus smear No fungi Specimen (test code = observed. InformationSpec imen Source: 1443) TissueSpecime Site: [facility] [id number] 16:51:58 Test Item Value Reference Range Interpretation Comments Gram stain No WBC's or Specimen isolate (test organisms seen. Information Specimen code = 1469) Source: [facility] [id number] 16:51:58 Test Item Value Reference Range Interpretation Comments Aerobic culture No growth Specimen isolate (test after 3 days. InformationSp ecimen code = 498) Source: [facility] [id number] 16:51:58 Test Item Value Reference Range Interpretation Comments Fungus smear No fungi Specimen (test code = observed. InformationSpec imen Source: 1443) TissueSpecimen Site: [facility] [id number] 16:51:58 Test Item Value Reference Range Interpretation Comments Gram stain No WBC's or Specimen isolate (test organisms seen. Information Specimen code = 1469) Source: [facility] Site: [facility] [id number] 16:51:58 Test Item Value Reference Range Interpretation Comments Aerobic culture No growth Specimen isolate (test after 3 days. InformationSp ecimen code = 498) [facility]: [facility] noogh0604-59-06 16:51:58 Test Item Value Reference Range Interpretation Comments Fungus smear No fungi Specimen (test code = observed. InformationSpec imen Source: 1443) [facility] [id number] 16:51:58 Test Item Value Reference Range Interpretation Comments Gram stain No WBC's or Specimen isolate (test organisms seen. Information Specimen code = 1469) Source: [facility] Site: [facility] [id number] 16:51:58 Test Item Value Reference Range Interpretation Comments Aerobic culture No growth Specimen isolate (test after 3 days. InformationSp ecimen code = 498) Source: [facility] [id number] 16:51:58 Test Item Value Reference Range Interpretation Comments Fungus smear No fungi Specimen (test code = observed. InformationSpec imen Source: 1443) [facility] [id number] 16:51:58 Test Item Value Reference Range Interpretation Comments Gram stain No WBC's or Specimen isolate (test organisms seen. Information Specimen code = 1469) Source: TissueS pecimen [facility] [id number] 16:51:58 Test Item Value Reference Range Interpretation Comments Aerobic culture No growth Specimen isolate (test after 3 days. InformationSp ecimen code = 498) Source: TissueS pecimen [facility] [id number] 16:51:58 Test Item Value Reference Range Interpretation Comments Fungus smear No fungi Specimen (test code = observed. InformationSpec imen Source: 1443) TissueSpecimen [facility] [id number] 16:51:58 Test Item Value Reference Range Interpretation Comments Gram stain No WBC's or Specimen isolate (test organisms seen. Information Specimen code = 1469) Source: [facility]S pecimen [facility] fxzhjrs3880-66-21 16:51:58 Test Item Value Reference Range Interpretation Comments Aerobic culture No growth Specimen isolate (test after 3 days. InformationSp ecimen code = 498) Source: TissueS pecimen [facility] gyjkj0098-12-11 16:51:58 Test Item Value Reference Range Interpretation Comments Fungus smear No fungi Specimen (test code = observed. InformationSpec imen Source: 1443) TissueSpecimen Site: [facility] [id number] 17:00:57 Test Item Value Reference Range Interpretation Comments POC glucose (test code 79 mg/dL 65-99 Opera tor Name: Eboni = 80988-5) AmiDevice ID: [id number] [facility] [id number] 17:00:57 Test Item Value Reference Range Interpretation Comments POC glucose (test code 79 mg/dL 65-99 Opera tor Name: Eboni = 99166-1) AmiDevice ID: [id number] [facility] [id number] 17:00:57 Test Item Value Reference Range Interpretation Comments POC glucose (test code 79 mg/dL 65-99 Opera tor Name: Eboni = 91897-5) AmiDevice ID: [id number] [facility] itarqkw9641-19-90 17:00:57 Test Item Value Reference Range Interpretation Comments POC glucose (test code 79 mg/dL 65-99 Opera tor Name: Eboni = 64108-7) AmiDevice ID: [id number] [facility] [id number] 17:00:57 Test Item Value Reference Range Interpretation Comments POC glucose (test code 79 mg/dL 65-99 Opera tor Name: Eboni = 68796-8) AmiDevice ID: [id number] [facility] [id number] 17:00:57 Test Item Value Reference Range Interpretation Comments POC glucose (test code 79 mg/dL 65-99 Opera tor Name: Eboni = 40836-0) AmiDevice ID: [id number] [facility]2021-12-29 17:00:57 Test Item Value Reference Range Interpretation Comments POC glucose (test code 79 mg/dL 65-99 Opera tor Name: Eboni = 48495-8) AmiDevice ID: [id number] [facility]2021-12-29 17:00:57 Test Item Value Reference Range Interpretation Comments POC glucose (test code 79 mg/dL 65-99 Opera tor Name: Eboni = 91447-1) AmiDevice ID: [id number] [facility]2021-12-29 17:00:57 Test Item Value Reference Range Interpretation Comments POC glucose (test code 79 mg/dL 65-99 Opera tor Name: Eboni = 21146-0) AmiDevice ID: [id number] [facility]2021-12-29 17:00:57 Test Item Value Reference Range Interpretation Comments POC glucose (test code 79 mg/dL 65-99 Opera tor Name: Eboni = 65411-0) AmiDevice ID: [id number] [facility]2021-12-29 17:00:57 Test Item Value Reference Range Interpretation Comments POC glucose (test code 79 mg/dL 65-99 Opera tor Name: Eboni = 20228-9) AmiDevice ID: [id number] [facility]2021-12-29 17:00:57 Test Item Value Reference Range Interpretation Comments POC glucose (test code 79 mg/dL 65-99 Opera tor Name: Eboni = 96190-1) AmiDevice ID: [id number] [facility]2021-12-29 17:00:57 Test Item Value Reference Range Interpretation Comments POC glucose (test code 79 mg/dL 65-99 Opera tor Name: Eboni = 81510-4) Brookevice ID: [id number] [facility] , [id number] 20:46:00 Test Item Value Reference Range Interpretation Comments test urine, POC (test Negative code = 2205435) Internal QC (test code = 257) QC acceptable [facility] , mweys2297-91-69 20:46:00 Test Item Value Reference Range Interpretation Comments test urine, POC (test Negative code = 1207492) Internal QC (test code = 257) QC acceptable [facility] , [id number] 20:46:00 Test Item Value Reference Range Interpretation Comments test urine, POC (test Negative code = 3625994) Internal QC (test code = 257) QC acceptable [facility] , [id number] 20:46:00 Test Item Value Reference Range Interpretation Comments test urine, POC (test Negative code = 6290216) Internal QC (test code = 257) QC acceptable [facility] , kmyzh0125-91-66 20:46:00 Test Item Value Reference Range Interpretation Comments test urine, POC (test Negative code = 1145918) Internal QC (test code = 257) QC [facility] iauid2877-55-94 20:46:00 Test Item Value Reference Range Interpretation Comments test urine, POC (test Negative code = 5960903) Internal QC (test code = 257) QC acceptable [facility] , zurcu7724-30-56 20:46:00 Test Item Value Reference Range Interpretation Comments test urine, POC (test Negative code = 7134627) Internal QC (test code = 257) QC [facility] , mgtbc0379-87-17 20:46:00 Test Item Value Reference Range Interpretation Comments test urine, POC (test Negative code = 6750409) Internal QC (test code = 257) QC acceptable [facility] , [id number] 20:46:00 Test Item Value Reference Range Interpretation Comments test urine, POC (test Negative code = 0009220) Internal QC (test code = 257) QC acceptable [facility] , [id number] 20:46:00 Test Item Value Reference Range Interpretation Comments test urine, POC (test Negative code = 6866518) Internal QC (test code = 257) QC acceptable [facility] , [id number] 20:46:00 Test Item Value Reference Range Interpretation Comments test urine, POC (test Negative code = 2279789) Internal QC (test code = 257) QC acceptable [facility] , [id number] 20:46:00 Test Item Value Reference Range Interpretation Comments test urine, POC (test Negative code = 8364260) Internal QC (test code = 257) QC acceptable [facility] , iympf0837-99-02 20:46:00 Test Item Value Reference Range Interpretation Comments test urine, POC (test Negative code = 9334965) Internal QC (test code = 257) QC acceptable [address]2021-12-27 17:27:33 Test Item Value Reference Range Interpretation Comments Ventricular rate (test code = 253) Atrial rate (test code = 255) OH interval (test code = 266) QRSD interval [...] of 04-JUN-2021 18:19,-No significant change was found- [address]2021-12-27 17:27:33 Test Item Value Reference Range Interpretation Comments Ventricular rate (test code = 253) Atrial rate (test code = 255) OH interval (test code = 266) QRSD interval [...] of 04-JUN-2021 18:19,-No significant change was found- [address]2021-12-27 17:27:33 Test Item Value Reference Range Interpretation Comments Ventricular rate (test code = 253) Atrial rate (test code = 255) OH interval (test code = 266) QRSD interval [...] of 04-JUN-2021 18:19,-No significant change was found- [address]2021-12-27 17:27:33 Test Item Value Reference Range Interpretation Comments Ventricular rate (test code = 253) Atrial rate (test code = 255) OH interval (test code = 266) QRSD interval [...] of 04-JUN-2021 18:19,-No significant change was found- [address]2021-12-27 17:27:33 Test Item Value Reference Range Interpretation Comments Ventricular rate (test code = 253) Atrial rate (test code = 255) OH interval (test code = 266) QRSD interval [...] of 04-JUN-2021 18:19,-No significant change was found- [address]2021-12-27 17:27:33 Test Item Value Reference Range Interpretation Comments Ventricular rate (test code = 253) Atrial rate (test code = 255) OH interval (test code = 266) QRSD interval [...] of 04-JUN-2021 18:19,-No significant change was found- [address]2021-12-27 17:27:33 Test Item Value Reference Range Interpretation Comments Ventricular rate (test code = 253) Atrial rate (test code = 255) OH interval (test code = 266) QRSD interval [...] of 04-JUN-2021 18:19,-No significant change was found- [address]2021-12-27 17:27:33 Test Item Value Reference Range Interpretation Comments Ventricular rate (test code = 253) Atrial rate (test code = 255) OH interval (test code = 266) QRSD interval [...] of 04-JUN-2021 18:19,-No significant change was found- [address]2021-12-27 17:27:33 Test Item Value Reference Range Interpretation Comments Ventricular rate (test code = 253) Atrial rate (test code = 255) OH interval (test code = 266) QRSD interval [...] of 04-JUN-2021 18:19,-No significant change was found- [address]2021-12-27 17:27:33 Test Item Value Reference Range Interpretation Comments Ventricular rate (test code = 253) Atrial rate (test code = 255) OH interval (test code = 266) QRSD interval [...] of 04-JUN-2021 18:19,-No significant change was found- [address]2021-12-27 17:27:33 Test Item Value Reference Range Interpretation Comments Ventricular rate (test code = 253) Atrial rate (test code = 255) OH interval (test code = 266) QRSD interval [...] of 04-JUN-2021 18:19,-No significant change was found- [address]2021-12-27 17:27:33 Test Item Value Reference Range Interpretation Comments Ventricular rate (test code = 253) Atrial rate (test code = 255) OH interval (test code = 266) QRSD interval [...] of 04-JUN-2021 18:19,-No significant change was found- [address]2021-12-27 17:27:33 Test Item Value Reference Range Interpretation Comments Ventricular rate (test code = 253) Atrial rate (test code = 255) OH interval (test code = 266) QRSD interval [...] 04-JUN-2021 18:19,-No significant change was found- [facility] and ojmdmh6609-19-65 11:06:00 Test Item Value Reference Range Interpretation Comments ABO grouping (test code = 883-9) B Rh type (test code = 85206-0) POS Antibody screen (gel) (test code = NEG 890-4) [facility] and aagyvv4208-29-52 11:06:00 Test Item Value Reference Range Interpretation Comments ABO grouping (test code = 883-9) B Rh type (test code = 70819-4) POS Antibody screen (gel) (test code = NEG 890-4) [facility] and qutasz5384-65-30 11:06:00 Test Item Value Reference Range Interpretation Comments ABO grouping (test code = 883-9) B Rh type (test code = 40748-1) POS Antibody screen (gel) (test code = NEG 890-4) [facility] and jvsswd9187-81-98 11:06:00 Test Item Value Reference Range Interpretation Comments ABO grouping (test code = 883-9) B Rh type (test code = 65698-9) POS Antibody screen (gel) (test code = NEG 890-4) [facility] and rdxvkj7567-92-23 11:06:00 Test Item Value Reference Range Interpretation Comments ABO grouping (test code = 883-9) B Rh type (test code = 70681-7) POS Antibody screen (gel) (test code = NEG 890-4) [facility] and mtkxjn5318-62-83 11:06:00 Test Item Value Reference Range Interpretation Comments ABO grouping (test code = 883-9) B Rh type (test code = 05207-6) POS Antibody screen (gel) (test code = NEG 890-4) [facility] and cjzgtl5360-79-32 11:06:00 Test Item Value Reference Range Interpretation Comments ABO grouping (test code = 883-9) B Rh type (test code = 88282-1) POS Antibody screen (gel) (test code = NEG 890-4) [facility] and emvgiz9097-02-57 11:06:00 Test Item Value Reference Range Interpretation Comments ABO grouping (test code = 883-9) B Rh type (test code = 81988-6) POS Antibody screen (gel) (test code = NEG 890-4) [facility] and wilbta5088-12-90 11:06:00 Test Item Value Reference Range Interpretation Comments ABO grouping (test code = 883-9) B Rh type (test code = 23765-1) POS Antibody screen (gel) (test code = NEG 890-4) [facility] and nhidgt3018-89-29 11:06:00 Test Item Value Reference Range Interpretation Comments ABO grouping (test code = 883-9) B Rh type (test code = 20533-7) POS Antibody screen (gel) (test code = NEG 890-4) [facility] mimzyd4950-44-61 11:06:00 Test Item Value Reference Range Interpretation Comments ABO grouping (test code = 883-9) B Rh type (test code = 48520-9) POS Antibody screen (gel) (test code = NEG 890-4) [facility] vfpikp0193-52-71 11:06:00 Test Item Value Reference Range Interpretation Comments ABO grouping (test code = 883-9) B Rh type (test code = 22523-0) POS Antibody screen (gel) (test code = NEG 890-4) [facility] dmlbhl8817[facility]13-45 11:06:00 Test Item Value Reference Range Interpretation Comments ABO grouping (test code = 883-9) B Rh type (test code = 36054-2) POS Antibody screen (gel) (test code = NEG 890-4) [facility] [Presence] in Respiratory specimen by EMANUEL with probe cmybnnpvz7880-33-62 19:37:44 Test Item Value Reference Range Interpretation Comments SARS-CoV-2 (COVID-19) RNA Not detected Not-Detected [Presence] in Respiratory specimen by EMANUEL with probe detection (test code = 37473-1) 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 (test code = 94644-6) Whether the patient has symptoms related to condition of interest (test code = 33883-5) Patient was hospitalized because of this condition (test code = 92825-6) Whether the patient was admitted to intensive care unit (ICU) for condition of interest (test code = 19763-1) Whether patient resides in a congregate care setting (test code = 25924-5) [facility] isaeoit2627-62-25 20:18:46 Test Item Value Reference Range Interpretation Comments Tissue culture No growth Specimen isolate (test after 3 days. InformationSp ecimen code = 85519-4) Source: Tiss ueSpecimen Site: Thigh: in fected right thigh wou nd [facility] zmnztqd2325-80-05 20:18:46 Test Item Value Reference Range Interpretation Comments Tissue culture No growth Specimen isolate (test after 3 days. InformationSp ecimen code = 59954-3) Source: Tiss ueSpecimen Site: Thigh: in fected right thigh wou [facility] napilek8818-00-03 20:18:46 Test Item Value Reference Range Interpretation Comments Tissue culture No growth Specimen isolate (test after 3 days. InformationSp ecimen code = 28833-4) Source: Tiss ueSpecimen Site: Thigh: in fected right thigh wou [facility] [id number] 20:18:46 Test Item Value Reference Range Interpretation Comments Tissue culture No growth Specimen isolate (test after 3 days. InformationSp ecimen code = 50547-0) Source: Tiss ueSpecimen Site: Thigh: in fected right thigh wou [facility] [id number] 20:18:46 Test Item Value Reference Range Interpretation Comments Tissue culture No growth Specimen isolate (test after 3 days. InformationSp ecimen code = 24052-5) Source: Tiss ueSpecimen Site: Thigh: in fected right thigh wou [facility]2021-12-24 20:18:46 Test Item Value Reference Range Interpretation Comments Tissue culture No growth Specimen isolate (test after 3 days. InformationSp ecimen code = 60235-4) Source: Tiss ueSpecimen Site: Thigh: in fected right thigh wou [facility]2021-12-24 20:18:46 Test Item Value Reference Range Interpretation Comments Tissue culture No growth Specimen isolate (test after 3 days. InformationSp ecimen code = 42031-9) Source: Tiss ueSpecimen Site: Thigh: in fected right thigh wou [facility] [id number] 20:18:46 Test Item Value Reference Range Interpretation Comments Tissue culture No growth Specimen isolate (test after 3 days. InformationSp ecimen code = 68341-8) Source: Tiss ueSpecimen Site: Thigh: in fected right thigh wou [facility] pmvzwzd0230-48-14 20:18:46 Test Item Value Reference Range Interpretation Comments Tissue culture No growth Specimen isolate (test after 3 days. InformationSp ecimen code = 34455-1) Source: Tiss ueSpecimen Site: Thigh: in fected right thigh wou [facility]2021-12-24 20:18:46 Test Item Value Reference Range Interpretation Comments Tissue culture No growth Specimen isolate (test after 3 days. InformationSp ecimen code = 97812-4) Source: Tiss ueSpecimen Site: Thigh: in fected right thigh wou nd [facility] [id number] 20:18:46 Test Item Value Reference Range Interpretation Comments Tissue culture No growth Specimen isolate (test after 3 days. InformationSp ecimen code = 86560-2) Source: Tiss ueSpecimen Site: Thigh: in fected right thigh wou nd [facility] [id number] 20:24:42 Test Item Value Reference Range Interpretation Comments AFB stain No acid fast Specimen (test code = bacilli (AFB) InformationSpe cimen 676-7) seen. Source: Drainag eSpecimen Site: Thigh: in fected wound [facility] [id number] 20:24:42 Test Item Value Reference Range Interpretation Comments AFB stain No acid fast Specimen (test code = bacilli (AFB) InformationSpe cimen 676-7) seen. Source: Drainag eSpecimen Site: Thigh: [facility]ect[facility] [id number] 20:24:42 Test Item Value Reference Range Interpretation Comments AFB stain No acid fast Specimen (test code = bacilli (AFB) InformationSpe cimen 676-7) seen. Source: Drainag eSpecimen Site: Th[facility]: [facility] qztzx7379-94-02 20:24:42 Test Item Value Reference Range Interpretation Comments AFB stain No acid fast Specimen (test code = bacilli (AFB) InformationSpe cimen 676-7) seen. Source: Drainag eSpecimen Site: Thigh: [facility]ect[facility] [id number] 20:24:42 Test Item Value Reference Range Interpretation Comments AFB stain No acid fast Specimen (test code = bacilli (AFB) InformationSpe cimen 676-7) seen. Source: Drainag eSpecimen Site: Thigh: [facility]ect[facility] [id number] 20:24:42 Test Item Value Reference Range Interpretation Comments AFB stain No acid fast Specimen (test code = bacilli (AFB) InformationSpe cimen 676-7) seen. Source: Drainag eSpecimen Site: Thigh: in fected wound [facility] [id number] 20:24:42 Test Item Value Reference Range Interpretation Comments AFB stain No acid fast Specimen (test code = bacilli (AFB) InformationSpe cimen 676-7) seen. Source: Drainag eSpecimen Site: Thigh: in fected wound [facility] [id number] 20:24:42 Test Item Value Reference Range Interpretation Comments AFB stain No acid fast Specimen (test code = bacilli (AFB) InformationSpe cimen 676-7) seen. Source: Drainag eSpecimen Site: Thigh: in fected wound right [facility] [id number] 20:24:42 Test Item Value Reference Range Interpretation Comments AFB stain No acid fast Specimen (test code = bacilli (AFB) InformationSpe cimen 676-7) seen. Source: Drainag eSpecimen Site: Thigh: in fected wound right [facility] [id number] 20:24:42 Test Item Value Reference Range Interpretation Comments AFB stain No acid fast Specimen (test code = bacilli (AFB) InformationSpe cimen 676-7) seen. Source: Drainag eSpecimen Site: Thigh: in fected wound [facility] [id number] 20:24:42 Test Item Value Reference Range Interpretation Comments AFB stain No acid fast Specimen (test code = bacilli (AFB) InformationSpe cimen 676-7) seen. Source: Drainag eSpecimen Site: Thigh: in fected wound right [facility] [id number] 09:49:57 Test Item Value Reference Range Interpretation Comments Urine culture No growth Specimen isolate (test after 24 InformationSpe cimen code = 14646-7) hours Source: Urin eSpecimen Site: Clean cat [facility] [id number] 09:49:57 Test Item Value Reference Range Interpretation Comments Urine culture No growth Specimen isolate (test after 24 InformationSpe cimen code = 71213-9) hours Source: Urin eSpecimen Site: [facility]2021-12-20 09:49:57 Test Item Value Reference Range Interpretation Comments Urine culture No growth Specimen isolate (test after 24 InformationSpe cimen code = 35033-1) hours Source: in eSpecimen Site: [facility]2021-12-20 09:49:57 Test Item Value Reference Range Interpretation Comments Urine culture No growth Specimen isolate (test after 24 InformationSpe cimen code = 18974-3) hours Source: Urin eSpecimen Site: [facility]2021-12-20 09:49:57 Test Item Value Reference Range Interpretation Comments Urine culture No growth Specimen isolate (test after 24 InformationSpe cimen code = 44268-8) hours Source: in eSpecimen Site: [facility]2021-12-20 09:49:57 Test Item Value Reference Range Interpretation Comments Urine culture No growth Specimen isolate (test after 24 InformationSpe cimen code = 90856-0) hours Source: Urin eSpecimen Site: [facility]2021-12-20 09:49:57 Test Item Value Reference Range Interpretation Comments Urine culture No growth Specimen isolate (test after 24 InformationSpe cimen code = 94228-5) hours Source: Urin eSpecimen Site: [facility]2021-12-20 09:49:57 Test Item Value Reference Range Interpretation Comments Urine culture No growth Specimen isolate (test after 24 InformationSpe cimen code = 10799-2) hours Source: Urin eSpecimen Site: [facility]2021-12-20 09:49:57 Test Item Value Reference Range Interpretation Comments Urine culture No growth Specimen isolate (test after 24 InformationSpe cimen code = 17816-2) hours Source: in eSpecimen Site: [facility]2021-12-20 09:49:57 Test Item Value Reference Range Interpretation Comments Urine culture No growth Specimen isolate (test after 24 InformationSpe cimen code = 06952-4) hours Source: [facility] eSpecimen Site: [facility]2021-12-20 09:49:57 Test Item Value Reference Range Interpretation Comments Urine culture No growth Specimen isolate (test after 24 [facility]Spe [facility] 21536-9) hours Source: Urin eSpecimen Site: Clean cat [facility] kqjmhqmyutuv5165-87-66 12:52:00 Test Item Value Reference Range Interpretation Comments ABO grouping (test code = 883-9) B Rh type (test code = 84074-9) POS [facility] rivhyddghzln2837-54-71 12:52:00 Test Item Value Reference Range Interpretation Comments ABO grouping (test code = 883-9) B Rh type (test code = 95706-6) POS [facility] wajzvxpfzqdb1726-70-08 12:52:00 Test Item Value Reference Range Interpretation Comments ABO grouping (test code = 883-9) B Rh type (test code = 24158-6) POS [facility] rasmfkffgose2822-79-45 12:52:00 Test Item Value Reference Range Interpretation Comments ABO grouping (test code = 883-9) B Rh type (test code = 31634-0) POS [facility] erhfriqyvmxw9332-83-50 12:52:00 Test Item Value Reference Range Interpretation Comments ABO grouping (test code = 883-9) B Rh type (test code = 09688-5) POS [facility] jdwfgnrzfaxq5515-38-24 12:52:00 Test Item Value Reference Range Interpretation Comments ABO grouping (test code = 883-9) B Rh type (test code = 08250-4) POS [facility] oowjvdjcyvjf4125-08-69 12:52:00 Test Item Value Reference Range Interpretation Comments ABO grouping (test code = 883-9) B Rh type (test code = 70862-7) POS [facility] yjsxtyexceza4568-63-37 12:52:00 Test Item Value Reference Range Interpretation Comments ABO grouping (test code = 883-9) B Rh type (test code = 50500-0) POS [facility] yepyazxgmnsm6807-27-33 12:52:00 Test Item Value Reference Range Interpretation Comments ABO grouping (test code = 883-9) B Rh type (test code = 43638-3) POS [facility] qdysleqjeiwi9599-38-78 12:52:00 Test Item Value Reference Range Interpretation Comments ABO grouping (test code = 883-9) B Rh type (test code = 55783-5) [facility] nhkqcnummhci6415-25-54 12:52:00 Test Item Value Reference Range Interpretation Comments ABO grouping (test code = 883-9) B Rh type (test code = 21543-9) [facility] [Presence] in Respiratory specimen by EMANUEL with probe xxwitooya9463-99-00 03:04:32 Test Item Value Reference Range Interpretation Comments SARS-CoV-2 (COVID-19) RNA Not detected Not-Detected [Presence] in Respiratory specimen by EMANUEL with probe detection (test code = 76622-9) 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 (test code = 64356-8) Whether the patient has symptoms related to condition of interest (test code = 78954-5) Patient was hospitalized because of this condition (test code = 32665-3) Whether the patient was admitted to intensive care unit (ICU) for condition of interest (test code = 33718-5) Whether patient resides in a congregate care setting (test code = 45235-0) [facility] [id number] 22:22:00 Test Item Value Reference Range Interpretation Comments Product name (test code Red Blood Cells -1, = 25) Leukored Unit number (test code = [id number]) Product code (test code D8761S78 = 3092) Dispense status (test Transfused code = 24) Blood expiration date (test code = 302) Blood type code (test code = 308) Blood type (test code = B POSITIVE 1314) Compatibility (test code Compatible = 6400) [facility] RBC, 1 Rqiwu5719-63-70 22:22:00 Test Item Value Reference Range Interpretation Comments Product name (test code Red Blood Cells -1, = 25) Leukored Unit number (test code = [id number] 2386261) Product code (test code K1717H47 = 3092) Dispense status (test Transfused code = 24) Blood expiration date (test code = 302) Blood type code (test code = 308) Blood type (test code = B POSITIVE 1314) Compatibility (test code Compatible = 6400) [facility] RBC, 1 Bpxlp9667-11-04 22:22:00 Test Item Value Reference Range Interpretation Comments Product name (test code Red Blood Cells -1, = 25) Leukored Unit number (test code = [id number] 9942530) Product code (test code I1400N77 = 3092) Dispense status (test Transfused code = 24) Blood expiration date (test code = 302) Blood type code (test code = 308) Blood type (test code = B POSITIVE 1314) Compatibility (test code Compatible = 6400) [facility], 1 Fetzl0687-06-41 22:22:00 Test Item Value Reference Range Interpretation Comments Product name (test code Red Blood Cells -1, = 25) Leukored Unit number (test code = [id number] 4977838) Product code (test code P2912A33 = 3092) Dispense status (test Transfused code = 24) Blood expiration date (test code = 302) Blood type code (test code = 308) Blood type (test code = B POSITIVE 1314) Compatibility (test code Compatible = 6400) [facility] Vykmh6282-63-98 22:22:00 Test Item Value Reference Range Interpretation Comments Product name (test code Red Blood Cells -1, = 25) Leukored Unit number (test code = [id number] 3161863) Product code (test code O0938U38 = 3092) Dispense status (test Transfused code = 24) Blood expiration date (test code = 302) Blood type code (test code = 308) Blood type (test code = B POSITIVE 1314) Compatibility (test code Compatible = 6400) [facility], 1 Fqvlr5589-94-06 22:22:00 Test Item Value Reference Range Interpretation Comments Product name (test code Red Blood Cells -1, = 25) Leukored Unit number (test code = [id number] 0373781) Product code (test code W4617J48 = 3092) Dispense status (test Transfused code = 24) Blood expiration date (test code = 302) Blood type code (test code = 308) Blood type (test code = B POSITIVE 1314) Compatibility (test code Compatible = 6400) [facility] RBC, 1 Uowrn7501-22-80 22:22:00 Test Item Value Reference Range Interpretation Comments Product name (test code Red Blood Cells -1, = 25) Leukored Unit number (test code = [id number] 2847386) Product code (test code O1134X35 = 3092) Dispense status (test Transfused code = 24) Blood expiration date (test code = 302) Blood type code (test code = 308) Blood type (test code = B POSITIVE 1314) Compatibility (test code Compatible = 6400) [facility] 1 Igyby8733-78-64 22:22:00 Test Item Value Reference Range Interpretation Comments Product name (test code Red Blood Cells -1, = 25) Leukored Unit number (test code = [id number] 0842692) Product code (test code K1012Y30 = 3092) Dispense status (test Transfused code = 24) Blood expiration date (test code = 302) Blood type code (test code = 308) Blood type (test code = B POSITIVE 1314) Compatibility (test code Compatible = 6400) [facility], 1 Ecgqh2100-25-63 22:22:00 Test Item Value Reference Range Interpretation Comments Product name (test code Red Blood Cells -1, = 25) Leukored Unit number (test code = [id number] 7298691) Product code (test code J1353S38 = 3092) Dispense status (test Transfused code = 24) Blood expiration date (test code = 302) Blood type code (test code = 308) Blood type (test code = B POSITIVE 1314) Compatibility (test code Compatible = 6400) [facility] RBC, 1 Jsnpp7161-75-16 22:22:00 Test Item Value Reference Range Interpretation Comments Product name (test code Red Blood Cells -1, = 25) Leukored Unit number (test code = [id number] 2113905) Product code (test code A5045C13 = 3092) Dispense status (test Transfused code = 24) Blood expiration date (test code = 302) Blood type code (test code = 308) Blood type (test code = B POSITIVE 1314) Compatibility (test code Compatible = 6400) [facility] pathology wxpojvr7098-51-69 20:10:46 Test Item Value Reference Range Interpretation Comments Case number (test code = [id number]) Surgical pathology See link below for report (test code = PDF Lab Report 2255) Result status (test code This is Final Report = [id number]) for [address] pathology raaarcp5379-50-78 20:10:46 Test Item Value Reference Range Interpretation Comments Case number (test code = [id number]) Surgical pathology See link below for report (test code = PDF Lab Report 2255) Result status (test code This is Final Report = [id number]) for [address] pathology ramuuzk2752-68-30 20:10:46 Test Item Value Reference Range Interpretation Comments Case number (test code = [id number]) Surgical pathology See link below for report (test code = PDF Lab Report 2255) Result status (test code This is Final Report = [id number]) for [address] pathology dlsmgcj3463-47-63 20:10:46 Test Item Value Reference Range Interpretation Comments Case number (test code = [id number]) Surgical pathology See link below for report (test code = PDF Lab Report 2255) Result status (test code This is Final Report = [id number]) for [address] pathology vuotxvj8212-51-72 20:10:46 Test Item Value Reference Range Interpretation Comments Case number (test code = [id number]) Surgical pathology See link below for report (test code = PDF Lab Report 2255) Result status (test code This is Final Report = [id number]) for [address] pathology zoissak7856-97-65 20:10:46 Test Item Value Reference Range Interpretation Comments Case number (test code = [id number]) Surgical pathology See link below for report (test code = PDF Lab Report 2255) Result status (test code This is Final Report = [id number]) for [address] pathology hhlzipr9784-80-67 20:10:46 Test Item Value Reference Range Interpretation Comments Case number (test code = [id number]) Surgical pathology See link below for report (test code = PDF Lab Report 2255) Result status (test code This is Final Report = [id number]) for [address] pathology xkyvdfc0022-80-66 20:10:46 Test Item Value Reference Range Interpretation Comments Case number (test code = [id number]) Surgical pathology See link below for report (test code = PDF Lab Report 2255) Result status (test code This is Final Report = [id number]) for [address] pathology ovxdlri9464-93-01 20:10:46 Test Item Value Reference Range Interpretation Comments Case number (test code = [id number]) Surgical pathology See link below for report (test code = PDF Lab Report 2255) Result status (test code This is Final Report = [id number]) for [address] pathology dthlenv6708-24-24 20:10:46 Test Item Value Reference Range Interpretation Comments Case number (test code = [id number]) Surgical pathology See link below for report (test code = PDF Lab Report 2255) Result status (test code This is Final Report = [id number]) [address] pheresis, 1 Zohvl6106-33-63 15:35:00 Test Item Value Reference Range Interpretation Comments Product name (test code Platele tAph LR, Path = 25) Red cont3 Unit number (test code = [id number] 8615727) Product code (test code P1325Z39 = 3092) Dispense status (test Transfused code = 24) Blood expiration date (test code = 302) Blood type code (test code = 308) Blood type (test code = O POSITIVE 1314) Compatibility (test code Not required = 6400) [facility] Crcar5323-70-45 15:35:00 Test Item Value Reference Range Interpretation Comments Product name (test code Platele tAph LR, Path = 25) Red cont3 Unit number (test code = [id number] 3048184) Product code (test code R0501E04 = 3092) Dispense status (test Transfused code = 24) Blood expiration date (test code = 302) Blood type code (test code = 308) Blood type (test code = O POSITIVE 1314) Compatibility (test code Not required = 6400) [facility], 1 Bprqp7120-29-51 15:35:00 Test Item Value Reference Range Interpretation Comments Product name (test code Platerick tAp LR, Path = 25) Red cont3 Unit number (test code = [id number] 9995243) Product code (test code A2562T59 = 3092) Dispense status (test Transfused code = 24) Blood expiration date (test code = 302) Blood type code (test code = 308) Blood type (test code = O POSITIVE 1314) Compatibility (test code Not required = 6400) [facility]heresis, 1 Trqhq9023-93-06 15:35:00 Test Item Value Reference Range Interpretation Comments Product name (test code Platerick tAp LR, Path = 25) Red cont3 Unit number (test code = [id number] 2364419) Product code (test code S6825D42 = 3092) Dispense status (test Transfused code = 24) Blood expiration date (test code = 302) Blood type code (test code = 308) Blood type (test code = O POSITIVE 1314) Compatibility (test code Not required = 6400) [facility] pheres[facility], 1 Abbbg9690-12-51 15:35:00 Test Item Value Reference Range Interpretation Comments Product name (test code Platerick tAp LR, Path = 25) Red cont3 Unit number (test code = [id number] 1641637) Product code (test code M5925Y60 = 3092) Dispense status (test Transfused code = 24) Blood expiration date (test code = 302) Blood type code (test code = 308) Blood type (test code = O POSITIVE 1314) Compatibility (test code Not required = 6400) [facility]heresis, 1 Bhlha0285-52-98 15:35:00 Test Item Value Reference Range Interpretation Comments Product name (test code Platerick tAp LR, Path = 25) Red cont3 Unit number (test code = [id number] 0462884) Product code (test code O1516C50 = 3092) Dispense status (test Transfused code = 24) Blood expiration date (test code = 302) Blood type code (test code = 308) Blood type (test code = O POSITIVE 1314) Compatibility (test code Not required = 6400) [facility], 1 Lznbb6175-86-81 15:35:00 Test Item Value Reference Range Interpretation Comments Product name (test code Platele tAph LR, Path = 25) Red cont3 Unit number (test code = [id number] 5870540) Product code (test code M0318V94 = 3092) Dispense status (test Transfused code = 24) Blood expiration date (test code = 302) Blood type code (test code = 308) Blood type (test code = O POSITIVE 1314) Compatibility (test code Not required = 6400) [facility], 1 Klxka4725-41-87 15:35:00 Test Item Value Reference Range Interpretation Comments Product name (test code Platele tAp LR, Path = 25) Red cont3 Unit number (test code = [id number]) Product code (test code L6071Q79 = 3092) Dispense status (test Transfused code = 24) Blood expiration date (test code = 302) Blood type code (test code = 308) Blood type (test code = O POSITIVE 1314) Compatibility (test code Not required = 6400) [facility] 1 Mkoir0558-53-13 15:35:00 Test Item Value Reference Range Interpretation Comments Product name (test code Platerick tAp LR, Path = 25) Red cont3 Unit number (test code = [id number]) Product code (test code F5855U11 = 3092) Dispense status (test Transfused code = 24) Blood expiration date (test code = 302) Blood type code (test code = 308) Blood type (test code = O POSITIVE 1314) Compatibility (test code Not required = 6400) [facility], 1 [id number] 15:35:00 Test Item Value Reference Range Interpretation Comments Product name (test code Platele tAph LR, Path = 25) Red cont3 Unit number (test code = [id number]) Product code (test code Z8634G64 = 3092) Dispense status (test Transfused code = 24) Blood expiration date (test code = 302) Blood type code (test code = 308) Blood type (test code = O POSITIVE 1314) Compatibility (test code Not required = 6400) [facility] [id number] 12:13:24 Test Item Value Reference Range Interpretation Comments Activated clotting time See_Comment H Oper ator Name: (test code = 5298) Marcoelytico Diase ID: [id number] [Automated mess age] The system PrimeSense generated this result transmitted ref erence range: 96 - 152 sec. The reference r leo was not used to interpret this result as normal/abnor mal. Lab Interpretation (test Abnormal code = 57220-9) [facility] [id number] 12:13:24 Test Item Value Reference Range Interpretation Comments Activated clotting time See_Comment H Oper ator Name: (test code = 5298) Bryn thorntoneaDevice ID: [id number] [Automated mess age] The system [employer] generated this result transmitted ref erence range: 96 - 152 sec. The reference r leo was not used to interpret this result as normal/abnor mal. Lab Interpretation (test Abnormal code = 19001-3) [facility] [id number] 12:13:24 Test Item Value Reference Range Interpretation Comments Activated clotting time See_Comment H Oper ator Name: (test code = 5298) Marcoelytico thorntoneaDevice ID: [id number] [Automated mess age] The system [employer] generated this result transmitted ref erence range: 96 - 152 sec. The reference r leo was not used to interpret this result as normal/abnor mal. Lab Interpretation (test Abnormal code = 63215-6) [facility] [id number] 12:13:24 Test Item Value Reference Range Interpretation Comments Activated clotting time See_Comment H Oper ator Name: (test code = 5298) Marcoelytico thorntoneaDevice ID: [id number] [Automated mess age] The system Attentio h generated this result transmitted ref erence range: 96 - 152 sec. The reference r leo was not used to interpret this result as normal/abnor mal. Lab Interpretation (test Abnormal code = 05083-6) [facility] [id number] 12:13:24 Test Item Value Reference Range Interpretation Comments Activated clotting time See_Comment H Oper ator Name: (test code = 5298) Bryn Denny cocoDevice ID: [id number] [Automated mess age] The system Attentio h generated this result transmitted ref erence range: 96 - 152 sec. The reference r leo was not used to interpret this result as normal/abnor mal. Lab Interpretation (test Abnormal code = 65920-3) [facility] [id number] 12:13:24 Test Item Value Reference Range Interpretation Comments Activated clotting time See_Comment H Oper ator Name: (test code = 5298) Bryn Denny eneaDevice ID: [id number] [Automated mess age] The system Attentio h generated this result transmitted ref erence range: 96 - 152 sec. The reference r leo was not used to interpret this result as normal/abnor mal. Lab Interpretation (test Abnormal code = 18223-8) [facility] [id number] 12:13:24 Test Item Value Reference Range Interpretation Comments Activated clotting time See_Comment H Oper ator Name: (test code = 5298) Bryn Denny norbertoeaDevice ID: [id number] [Automated mess age] The system Attentio h generated this result transmitted ref erence range: 96 - 152 sec. The reference r leo was not used to interpret this result as normal/abnor mal. Lab Interpretation (test Abnormal code = 36100-8) [facility] [id number] 12:13:24 Test Item Value Reference Range Interpretation Comments Activated clotting time See_Comment H Oper ator Name: (test code = 5298) rByn Denny eneaDevice ID: [id number] [Automated mess age] The system FORMTEKic h generated this result transmitted ref erence range: 96 - 152 sec. The reference r leo was not used to interpret this result as normal/abnor mal. Lab Interpretation (test Abnormal code = 12336-7) [facility] [id number] 12:13:24 Test Item Value Reference Range Interpretation Comments Activated clotting time See_Comment H Oper ator Name: (test code = 5298) Bryn Denny eneaDevice ID: [id number] [Automated mess age] The system [employer] generated this result transmitted ref erence range: 96 - 152 sec. The reference r leo was not used to interpret this result as normal/abnor mal. Lab Interpretation (test Abnormal code = 36147-5) [facility] clotting [id number] 12:13:24 Test Item Value Reference Range Interpretation Comments Activated clotting time See_Comment H Oper ator Name: (test code = 5298) Bryn Denny eneaDevice ID: [id number] [Automated mess age] The system [employer] generated this result transmitted ref erence range: 96 - 152 sec. The reference r leo was not used to interpret this result as normal/abnor mal. Lab Interpretation (test Abnormal code = 50100-3) [facility] [id number] 14:37:48 Test Item Value Reference Range Interpretation Comments POC sodium (test code = 138 mmol/L 862-801 0943-0) POC potassium (test 5.5 mmol/L 3.5-5 H code = 6298-4) POC glucose (test code 295 mg/dL 65-99 H = 2339-0) POC creatinine (test 5.3 mg/dl 0.5-0.9 H Operato r Name: Pugne code = 38782-3) AileenDevice ID: [id number] POC hemoglobin (test 18.4 g/dL 12-16 H code = 718-7) POC hematocrit (test 54 % 37-47 H code = 4544-3) Lab Interpretation Abnormal (test code = 49745-7) [facility] [id number] 14:37:48 Test Item Value Reference Range Interpretation Comments POC sodium (test code = 138 mmol/L 487-397 5910-0) POC potassium (test 5.5 mmol/L 3.5-5 H code = 6298-4) POC glucose (test code 295 mg/dL 65-99 H = 2339-0) POC creatinine (test 5.3 mg/dl 0.5-0.9 H Operato r Name: Pugne code = 95854-5) AileenDevice ID: [id number] POC hemoglobin (test 18.4 g/dL 12-16 H code = 718-7) POC hematocrit (test 54 % 37-47 H code = 4544-3) Lab Interpretation Abnormal (test code = 59929-2) [facility]2021-11-29 14:37:48 Test Item Value Reference Range Interpretation Comments POC sodium (test code = 138 mmol/L 206-613 5477-0) POC potassium (test 5.5 mmol/L 3.5-5 H code = 6298-4) POC glucose (test code 295 mg/dL 65-99 H = 2339-0) POC creatinine (test 5.3 mg/dl 0.5-0.9 H Operato r Name: Pugne code = 29177-3) LisbethDevice ID: [id number] POC hemoglobin (test 18.4 g/dL 12-16 H code = 718-7) POC hematocrit (test 54 % 37-47 H code = 4544-3) Lab Interpretation Abnormal (test code = 24905-9) [facility]2021-11-29 14:37:48 Test Item Value Reference Range Interpretation Comments POC sodium (test code = 138 mmol/L 470-253 2618-0) POC potassium (test 5.5 mmol/L 3.5-5 H code = 6298-4) POC glucose (test code 295 mg/dL 65-99 H = 2339-0) POC creatinine (test 5.3 mg/dl 0.5-0.9 H Operato r Name: Pugne code = 06026-6) AiljoshDevice ID: [id number] POC hemoglobin (test 18.4 g/dL 12-16 H code = 718-7) POC hematocrit (test 54 % 37-47 H code = 4544-3) Lab Interpretation Abnormal (test code = 48158-5) [facility]2021-11-29 14:37:48 Test Item Value Reference Range Interpretation Comments POC sodium (test code = 138 mmol/L 720-153 2125-0) POC potassium (test 5.5 mmol/L 3.5-5 H code = 6298-4) POC glucose (test code 295 mg/dL 65-99 H = 2339-0) POC creatinine (test 5.3 mg/dl 0.5-0.9 H Operato r Name: Carminae code = 27527-8) AileenDevice ID: [id number] POC hemoglobin (test 18.4 g/dL 12-16 H code = 718-7) POC hematocrit (test 54 % 37-47 H code = 4544-3) Lab Interpretation Abnormal (test code = 60692-5) [facility]2021-11-29 14:37:48 Test Item Value Reference Range Interpretation Comments POC sodium (test code = 138 mmol/L 767-798 0513-0) POC potassium (test 5.5 mmol/L 3.5-5.0 H code = 6298-4) POC glucose (test code 295 mg/dL 65-99 H = 2339-0) POC creatinine (test 5.3 mg/dl 0.5-0.9 H [facility] code = 10352-2) AileenDevice ID: [id number] POC hemoglobin (test 18.4 g/dL 12.0-16.0 H code = 718-7) POC hematocrit (test 54 % 37-47 H code = 4544-3) Lab Interpretation Abnormal (test code = 22819-3) [facility]2021-11-29 14:37:48 Test Item Value Reference Range Interpretation Comments POC sodium (test code = 138 mmol/L 908-580 8326-0) POC potassium (test 5.5 mmol/L 3.5-5.0 H code = 6298-4) POC glucose (test code 295 mg/dL 65-99 H = 2339-0) POC creatinine (test 5.3 mg/dl 0.5-0.9 H Operato r [facility] [place] code = 82327-8) AileenDevice ID: [id number] POC hemoglobin (test 18.4 g/dL 12.0-16.0 H code = 718-7) POC hematocrit (test 54 % 37-47 H code = 4544-3) Lab Interpretation Abnormal (test code = 71822-1) [facility]2021-11-29 14:37:48 Test Item Value Reference Range Interpretation Comments POC sodium (test code = 138 mmol/L 264-695 5890-0) POC potassium (test 5.5 mmol/L 3.5-5 H code = 6298-4) POC glucose (test code 295 mg/dL 65-99 H = 2339-0) POC creatinine (test 5.3 mg/dl 0.5-0.9 H Operato r Name: Carminagne code = 53971-7) AileenDevice ID: [id number] POC hemoglobin (test 18.4 g/dL 12-16 H code = 718-7) POC hematocrit (test 54 % 37-47 H code = 4544-3) Lab Interpretation Abnormal (test code = 41299-9) [facility] [id number] 14:37:48 Test Item Value Reference Range Interpretation Comments POC sodium (test code = 138 mmol/L 787-219 2233-0) POC potassium (test 5.5 mmol/L 3.5-5 H code = 6298-4) POC glucose (test code 295 mg/dL 65-99 H = 2339-0) POC creatinine (test 5.3 mg/dl 0.5-0.9 H Operato r Name: Johannae code = 30556-6) AileenDevice ID: [id number] POC hemoglobin (test 18.4 g/dL 12-16 H code = 718-7) POC hematocrit (test 54 % 37-47 H code = 4544-3) Lab Interpretation Abnormal (test code = 14578-4) [facility] [id number] 14:37:48 Test Item Value Reference Range Interpretation Comments POC sodium (test code = 138 mmol/L 913-577 3012-0) POC potassium (test 5.5 mmol/L 3.5-5 H code = 6298-4) POC glucose (test code 295 mg/dL 65-99 H = 2339-0) POC creatinine (test 5.3 mg/dl 0.5-0.9 H Operato r Name: Pugne code = 39972-0) AileenDevice ID: [id number] POC hemoglobin (test 18.4 g/dL 12-16 H code = 718-7) POC hematocrit (test 54 % 37-47 H code = 4544-3) Lab Interpretation Abnormal (test code = 34125-7) [facility] (C[facility]) RNA [Presence] in Respiratory specimen by EMANUEL with probe incverner4897-55-11 07:53:49 Test Item Value Reference Range Interpretation Comments SARS-CoV-2 (COVID-19) RNA Not detected Not-Detected [Presence] in Respiratory specimen by EMANUEL with probe detection (test code = 35964-5) 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2021-08-11 08:17:00 Test Item Value Reference Range Interpretation Comments BUN (test code = BUN) 27 7-22 [place] 301171-08-11 08:17:00 Test Item Value Reference Range Interpretation Comments Creatinine Lvl (test code = Creatinine 4.95 0.50-1.40 Lvl) [facility]2021-08-11 08:17:00 Test Item Value Reference Range Interpretation Comments Sodium Lvl (test code = Sodium Lvl) 136 135-145 [place] 301171-08-11 08:17:00 Test Item Value Reference Range Interpretation Comments Potassium Lvl (test code = Potassium 3.9 3.5-5.1 Lvl) [place] 301171-08-11 08:17:00 Test Item Value Reference Range Interpretation Comments Chloride Lvl (test code = Chloride Lvl) 103 95-109 [place] 301171-08-11 08:17:00 Test Item Value Reference Range Interpretation Comments CO2 (test code = CO2) 30 24-32 [place] 301171-08-11 08:17:00 Test Item Value Reference Range Interpretation Comments AGAP (test code = AGAP) 6.9 10.0-20.0 [place] 301171-08-11 08:17:00 Test Item Value Reference Range Interpretation Comments Calcium Lvl (test code = Calcium Lvl) 8.5 8.5-10.5 [facility]2021-08-11 08:17:00 Test Item Value Reference Range Interpretation Comments eGFR (test code = eGFR) 10 [facility]2021-08-11 08:17:00 Test Item Value Reference Range Interpretation Comments Phosphorus (test code = Phosphorus) 3.0 2.5-4.5 [facility]2021-08-11 08:17:00 Test Item Value Reference Range Interpretation Comments Magnesium Lvl (test code = Magnesium 2.4 1.8-2.4 Lvl) [place] 007271-08-11 08:17:00 Test Item Value Reference Range Interpretation Comments WBC (test code = WBC) 2.3 3.7-10.4 [place] 007271-08-11 08:17:00 Test Item Value Reference Range Interpretation Comments RBC (test code = RBC) 2.65 4.20-5.40 [facility]wkqneQFYJTEZBIW0954-53-31 08:17:00 Test Item Value Reference Range Interpretation Comments Hgb (test code = Hgb) 7.9 12.0-16.0 [facility]EueoqxzZYIFAWVGOS2691-51-99 08:17:00 Test Item Value Reference Range Interpretation Comments Hct (test code = Hct) 24.0 36.0-48.0 [facility] HospitalQtlhaoxAWBLRTWQFV5721-28-24 08:17:00 Test Item Value Reference Range Interpretation Comments MCV (test code = MCV) 90.6 80.0-98.0 [facility] HospitalJlzqcmlFKEHVBVZSI4293-27-99 08:17:00 Test Item Value Reference Range Interpretation Comments MCH (test code = MCH) 29.7 pg 27.0-31.0 [place] 007271-08-11 08:17:00 Test Item Value Reference Range Interpretation Comments MCHC (test code = MCHC) 32.7 32.0-36.0 [facility] HospitalHwttirtVOSJUCXKBJ2480-44-16 08:17:00 Test Item Value Reference Range Interpretation Comments RDW (test code = RDW) 19.1 11.5-14.5 [place] 007271-08-11 08:17:00 Test Item Value Reference Range Interpretation Comments Platelet (test code = Platelet) 71 133-450 [place] 007271-08-11 08:17:00 Test Item Value Reference Range Interpretation Comments MPV (test code = MPV) 9.9 7.4-10.4 [facility] HospitalLkdyddfMWARRKXXGC0343-22-43 08:17:00 Test Item Value Reference Range Interpretation Comments Segs (test code = Segs) 56.1 45.0-75.0 [facility] HospitalNrkxgjjNTDPBWBGPW2800-37-01 08:17:00 Test Item Value Reference Range Interpretation Comments Lymphocytes (test code = Lymphocytes) 28.9 20.0-40.0 [place] 007271-08-11 08:17:00 Test Item Value Reference Range Interpretation Comments Monocytes (test code = Monocytes) 8.1 2.0-12.0 [facility] HospitalMfdkpmsRXCMFIYVEN5131-59-54 08:17:00 Test Item Value Reference Range Interpretation Comments Eosinophils (test code = 5.9 See_Comment [A utomated message] The Eosinophils) system which ge nerated this result tra nsmitted reference range : <=4.0. The reference r leo was not used to int erpret this result as normal/abnormal . [facility] HospitalBtofnqiTWNFJNBMTF4381-18-86 08:17:00 Test Item Value Reference Range Interpretation Comments Basophils (test code = 1.0 See_Comment [Aut omated message] The Basophils) system which ge nerated this result tra nsmitted reference range : <=1.0. The reference r leo was not used to int erpret this result as normal/abnormal . [facility] HospitalPwhtithGWVUXMIPLT1814-91-87 08:17:00 Test Item Value Reference Range Interpretation Comments Neutrophils # (test code = Neutrophils 1.3 1.5-8.1 #) [facility] HospitalDfzcxvwYMSDKARWNI3674-33-17 08:17:00 Test Item Value Reference Range Interpretation Comments Lymphocytes # (test code = Lymphocytes 0.7 1.0-5.5 #) [place] 007271-08-11 08:17:00 Test Item Value Reference Range Interpretation Comments Monocytes # (test code 0.2 See_Comment [Aut omated message] The = Monocytes #) system which generated this result tra nsmitted reference range : <=0.8. The reference r leo was not used to int erpret this result as normal/abnormal . [place] 007271-08-11 08:17:00 Test Item Value Reference Range Interpretation Comments Eosinophils # (test code 0.1 See_Comment [A utomated message] The = Eosinophils #) system whic h generated this result tra nsmitted reference range : <=0.5. The reference r leo was not used to int erpret this result as normal/abnormal . [place] 301171-08-11 08:17:00 Test Item Value Reference Range Interpretation Comments Glucose Lvl (test code = Glucose Lvl) 94 70-99 [place] 301171-08-11 08:17:00 Test Item Value Reference Range Interpretation Comments BUN (test code = BUN) 27 7-22 [facility]2021-08-11 08:17:00 Test Item Value Reference Range Interpretation Comments Creatinine Lvl (test code = Creatinine 4.95 0.50-1.40 Lvl) [facility]2021-08-11 08:17:00 Test Item Value Reference Range Interpretation Comments Sodium Lvl (test code = Sodium Lvl) 136 135-145 [facility]aleShopReply DJXOK6730-29-95 08:17:00 Test Item Value Reference Range Interpretation Comments Potassium Lvl (test code = Potassium 3.9 3.5-5.1 Lvl) [facility]WallixNOV[facility] CENTERFKGJT3920-28-17 08:17:00 Test Item Value Reference Range Interpretation Comments Chloride Lvl (test code = Chloride Lvl) 103 95-109 [facility]2021-08-11 08:17:00 Test Item Value Reference Range Interpretation Comments CO2 (test code = CO2) 30 24-32 [facility]anoForce-A HUJYP6106-85-92 08:17:00 Test Item Value Reference Range Interpretation Comments AGAP (test code = AGAP) 6.9 10.0-20.0 [facility]Force-A LRDSW3284-85-27 08:17:00 Test Item Value Reference Range Interpretation Comments Calcium Lvl (test code = Calcium Lvl) 8.5 8.5-10.5 [place] 301171-08-11 08:17:00 Test Item Value Reference Range Interpretation Comments eGFR (test code = eGFR) 10 [facility]2021-08-11 08:17:00 Test Item Value Reference Range Interpretation Comments Phosphorus (test code = Phosphorus) 3.0 2.5-4.5 [facility]2021-08-11 08:17:00 Test Item Value Reference Range Interpretation Comments Magnesium Lvl (test code = Magnesium 2.4 1.8-2.4 Lvl) [facility] HospitalFpvekyhJCHIKVRBZF2094-92-03 08:17:00 Test Item Value Reference Range Interpretation Comments WBC (test code = WBC) 2.3 3.7-10.4 [place] 007271-08-11 08:17:00 Test Item Value Reference Range Interpretation Comments RBC (test code = RBC) 2.65 4.20-5.40 [place] 007271-08-11 08:17:00 Test Item Value Reference Range Interpretation Comments Hgb (test code = Hgb) 7.9 12.0-16.0 [place] 007271-08-11 08:17:00 Test Item Value Reference Range Interpretation Comments Hct (test code = Hct) 24.0 36.0-48.0 [place] 007271-08-11 08:17:00 Test Item Value Reference Range Interpretation Comments MCV (test code = MCV) 90.6 80.0-98.0 [facility] HospitalSgbmlqnVZAEPJDLMB5228-14-63 08:17:00 Test Item Value Reference Range Interpretation Comments MCH (test code = MCH) 29.7 pg 27.0-31.0 [place] 007271-08-11 08:17:00 Test Item Value Reference Range Interpretation Comments MCHC (test code = MCHC) 32.7 32.0-36.0 [facility] HospitalBjomwbqBJLEORLPFD6658-91-02 08:17:00 Test Item Value Reference Range Interpretation Comments RDW (test code = RDW) 19.1 11.5-14.5 [place] 007271-08-11 08:17:00 Test Item Value Reference Range Interpretation Comments Platelet (test code = Platelet) 71 133-450 [place] 007271-08-11 08:17:00 Test Item Value Reference Range Interpretation Comments MPV (test code = MPV) 9.9 7.4-10.4 [place] 007271-08-11 08:17:00 Test Item Value Reference Range Interpretation Comments Segs (test code = Segs) 56.1 45.0-75.0 [place] 007271-08-11 08:17:00 Test Item Value Reference Range Interpretation Comments Lymphocytes (test code = Lymphocytes) 28.9 20.0-40.0 [facility] HospitalSlanvynYBZZEMWRUB5187-98-38 08:17:00 Test Item Value Reference Range Interpretation Comments Monocytes (test code = Monocytes) 8.1 2.0-12.0 [place] 007271-08-11 08:17:00 Test Item Value Reference Range Interpretation Comments Eosinophils (test code = 5.9 See_Comment [A utomated message] The Eosinophils) system which ge nerated this result tra nsmitted reference range : <=4.0. The reference r leo was not used to int erpret this result as normal/abnormal . [facility] HospitalHejapefVDFSWFSLWV7765-80-00 08:17:00 Test Item Value Reference Range Interpretation Comments Basophils (test code = 1.0 See_Comment [Aut omated message] The Basophils) system which ge nerated this result tra nsmitted reference range : <=1.0. The reference r leo was not used to int erpret this result as normal/abnormal . [facility] HospitalLovpvdxALKRQSYGMY6495-74-57 08:17:00 Test Item Value Reference Range Interpretation Comments Neutrophils # (test code = Neutrophils 1.3 1.5-8.1 #) [facility] HospitalUppdhcoKCZCKMGKBN5813-75-50 08:17:00 Test Item Value Reference Range Interpretation Comments Lymphocytes # (test code = Lymphocytes 0.7 1.0-5.5 #) [facility] HospitalMpccfzgIPTMZHLEOT6081-45-28 08:17:00 Test Item Value Reference Range Interpretation Comments Monocytes # (test code 0.2 See_Comment [Aut omated message] The = Monocytes #) system which generated this result tra nsmitted reference range : <=0.8. The reference r leo was not used to int erpret this result as normal/abnormal . [facility] HospitalAxfkpgeKSGXSSRDES1742-78-57 08:17:00 Test Item Value Reference Range Interpretation [...] (test code = Glucose Lvl) 94 70-99 [place] 301171-08-11 08:17:00 Test Item Value Reference Range Interpretation Comments BUN (test code = BUN) 27 7-22 [place] 301171-08-11 08:17:00 Test Item Value Reference Range Interpretation Comments Creatinine Lvl (test code = Creatinine 4.95 0.50-1.40 Lvl) [place] 301171-08-11 08:17:00 Test Item Value Reference Range Interpretation Comments Sodium Lvl (test code = Sodium Lvl) 136 135-145 [place] 301171-08-11 08:17:00 Test Item Value Reference Range Interpretation Comments Potassium Lvl (test code = Potassium 3.9 3.5-5.1 Lvl) [place] 301171-08-11 08:17:00 Test Item Value Reference Range Interpretation Comments Chloride Lvl (test code = Chloride Lvl) 103 95-109 [place] 301171-08-11 08:17:00 Test Item Value Reference Range Interpretation Comments CO2 (test code = CO2) 30 24-32 [place] 301171-08-11 08:17:00 Test Item Value Reference Range Interpretation Comments AGAP (test code = AGAP) 6.9 10.0-20.0 [place] 301171-08-11 08:17:00 Test Item Value Reference Range Interpretation Comments Calcium Lvl (test code = Calcium Lvl) 8.5 8.5-10.5 [place] 301171-08-11 08:17:00 Test Item Value Reference Range Interpretation Comments eGFR (test code = eGFR) 10 [place] 301171-08-11 08:17:00 Test Item Value Reference Range Interpretation Comments Phosphorus (test code = Phosphorus) 3.0 2.5-4.5 [place] 301171-08-11 08:17:00 Test Item Value Reference Range Interpretation Comments Magnesium Lvl (test code = Magnesium 2.4 1.8-2.4 Lvl) [place] 007271-08-11 08:17:00 Test Item Value Reference Range Interpretation Comments WBC (test code = WBC) 2.3 3.7-10.4 [place] 007271-08-11 08:17:00 Test Item Value Reference Range Interpretation Comments RBC (test code = RBC) 2.65 4.20-5.40 [place] 007271-08-11 08:17:00 Test Item Value Reference Range Interpretation Comments Hgb (test code = Hgb) 7.9 12.0-16.0 [place] 007271-08-11 08:17:00 Test Item Value Reference Range Interpretation Comments Hct (test code = Hct) 24.0 36.0-48.0 [facility]vKYYDGKJOUJ7363-43-73 08:17:00 Test Item Value Reference Range Interpretation Comments MCV (test code = MCV) 90.6 80.0-98.0 [facility]VcirfcjAGXDUPSBKW4563-84-05 08:17:00 Test Item Value Reference Range Interpretation Comments MCH (test code = MCH) 29.7 pg 27.0-31.0 [facility] HospitalTvqdntaPLHPWCHARY7364-33-40 08:17:00 Test Item Value Reference Range Interpretation Comments MCHC (test code = MCHC) 32.7 32.0-36.0 [facility] HospitalWkkyuxeWUGEHSOKOC8661-93-32 08:17:00 Test Item Value Reference Range Interpretation Comments RDW (test code = RDW) 19.1 11.5-14.5 [facility]QkensfaILZPXDSRSQ4172-18-54 08:17:00 Test Item Value Reference Range Interpretation Comments Platelet (test code = Platelet) 71 133-450 [facility] HospitalRrntsxmPOGZGXWAXN6853-53-00 08:17:00 Test Item Value Reference Range Interpretation Comments MPV (test code = MPV) 9.9 7.4-10.4 [facility] HospitalYgfzimpXKDFTEXLFI4963-34-21 08:17:00 Test Item Value Reference Range Interpretation Comments Segs (test code = Segs) 56.1 45.0-75.0 [place] 007271-08-11 08:17:00 Test Item Value Reference Range Interpretation Comments Lymphocytes (test code = Lymphocytes) 28.9 20.0-40.0 [facility] HospitalQnmkczzCDRUSMDBJW5861-49-20 08:17:00 Test Item Value Reference Range Interpretation Comments Monocytes (test code = Monocytes) 8.1 2.0-12.0 [place] 007271-08-11 08:17:00 Test Item Value Reference Range Interpretation Comments Eosinophils (test code = 5.9 See_Comment [A utomated message] The Eosinophils) system which ge nerated this result tra nsmitted reference range : <=4.0. The reference r leo was not used to int erpret this result as normal/abnormal . [facility] HospitalDhyfrdpYAEFUGWBRR8583-26-57 08:17:00 Test Item Value Reference Range Interpretation Comments Basophils (test code = 1.0 See_Comment [Aut omated message] The Basophils) system which ge nerated this result tra nsmitted reference range : <=1.0. The reference r leo was not used to int erpret this result as normal/abnormal . [facility] HospitalDcyrbrqJXORYQJDEA5385-32-06 08:17:00 Test Item Value Reference Range Interpretation Comments Neutrophils # (test code = Neutrophils 1.3 1.5-8.1 #) [place] 007271-08-11 08:17:00 Test Item Value Reference Range Interpretation Comments Lymphocytes # (test code = Lymphocytes 0.7 1.0-5.5 #) [facility] HospitalYygotpeSTAHPWGAVH4873-09-89 08:17:00 Test Item Value Reference Range Interpretation Comments Monocytes # (test code 0.2 See_Comment [Aut omated message] The = Monocytes #) system which generated this result tra nsmitted reference range : <=0.8. The reference r leo was not used to int erpret this result as normal/abnormal . [facility] HospitalJfllqxcZKJMIATKUU6569-40-77 08:17:00 Test Item Value Reference Range Interpretation [...] (test code = Glucose Lvl) 94 70-99 [facility]2021-08-11 08:17:00 Test Item Value Reference Range Interpretation Comments BUN (test code = BUN) 27 7-22 [place] 301171-08-11 08:17:00 Test Item Value Reference Range Interpretation Comments Creatinine Lvl (test code = Creatinine 4.95 0.50-1.40 Lvl) [place] 301171-08-11 08:17:00 Test Item Value Reference Range Interpretation Comments Sodium Lvl (test code = Sodium Lvl) 136 135-145 [place] 301171-08-11 08:17:00 Test Item Value Reference Range Interpretation Comments Potassium Lvl (test code = Potassium 3.9 3.5-5.1 Lvl) [place] 301171-08-11 08:17:00 Test Item Value Reference Range Interpretation Comments Chloride Lvl (test code = Chloride Lvl) 103 95-109 [place] 301171-08-11 08:17:00 Test Item Value Reference Range Interpretation Comments CO2 (test code = CO2) 30 24-32 [place] 301171-08-11 08:17:00 Test Item Value Reference Range Interpretation Comments AGAP (test code = AGAP) 6.9 10.0-20.0 [place] 301171-08-11 08:17:00 Test Item Value Reference Range Interpretation Comments Calcium Lvl (test code = Calcium Lvl) 8.5 8.5-10.5 [place] 301171-08-11 08:17:00 Test Item Value Reference Range Interpretation Comments eGFR (test code = eGFR) 10 [place] 301171-08-11 08:17:00 Test Item Value Reference Range Interpretation Comments Phosphorus (test code = Phosphorus) 3.0 2.5-4.5 [place] 301171-08-11 08:17:00 Test Item Value Reference Range Interpretation Comments Magnesium Lvl (test code = Magnesium 2.4 1.8-2.4 Lvl) [place] 007271-08-11 08:17:00 Test Item Value Reference Range Interpretation Comments WBC (test code = WBC) 2.3 3.7-10.4 [place] [address]-08-11 08:17:00 Test Item Value Reference Range Interpretation Comments RBC (test code = RBC) 2.65 4.20-5.40 [place] 007271-08-11 08:17:00 Test Item Value Reference Range Interpretation Comments Hgb (test code = Hgb) 7.9 12.0-16.0 [place] 007271-08-11 08:17:00 Test Item Value Reference Range Interpretation Comments Hct (test code = Hct) 24.0 36.0-48.0 [facility] HospitalIpwrrhgYYQWWEUMEZ5825-71-73 08:17:00 Test Item Value Reference Range Interpretation Comments MCV (test code = MCV) 90.6 80.0-98.0 [place] 007271-08-11 08:17:00 Test Item Value Reference Range Interpretation Comments MCH (test code = MCH) 29.7 pg 27.0-31.0 [place] 007271-08-11 08:17:00 Test Item Value Reference Range Interpretation Comments MCHC (test code = MCHC) 32.7 32.0-36.0 [facility] HospitalZaujeutZHWYFHRDMC5311-79-69 08:17:00 Test Item Value Reference Range Interpretation Comments RDW (test code = RDW) 19.1 11.5-14.5 [place] 007271-08-11 08:17:00 Test Item Value Reference Range Interpretation Comments Platelet (test code = Platelet) 71 133-450 [facility] HospitalXtozwpfFDUFTVOXYF1421-81-14 08:17:00 Test Item Value Reference Range Interpretation Comments MPV (test code = MPV) 9.9 7.4-10.4 [facility] HospitalLumhwcsXOHQTXXTHL2600-73-67 08:17:00 Test Item Value Reference Range Interpretation Comments Segs (test code = Segs) 56.1 45.0-75.0 [facility] HospitalCvbdqyiDEXFFIPIHD5618-08-91 08:17:00 Test Item Value Reference Range Interpretation Comments Lymphocytes (test code = Lymphocytes) 28.9 20.0-40.0 [place] 007271-08-11 08:17:00 Test Item Value Reference Range Interpretation Comments Monocytes (test code = Monocytes) 8.1 2.0-12.0 [place] 007271-08-11 08:17:00 Test Item Value Reference Range Interpretation Comments Eosinophils (test code = 5.9 See_Comment [A utomated message] The Eosinophils) system which ge nerated this result tra nsmitted reference range : <=4.0. The reference r leo was not used to int erpret this result as normal/abnormal . [facility] HospitalQwkfcuqEHADIKWLGF4301-34-60 08:17:00 Test Item Value Reference Range Interpretation Comments Basophils (test code = 1.0 See_Comment [Aut omated message] The Basophils) system which ge nerated this result tra nsmitted reference range : <=1.0. The reference r leo was not used to int erpret this result as normal/abnormal . [place] 007271-08-11 08:17:00 Test Item Value Reference Range Interpretation Comments Neutrophils # (test code = Neutrophils 1.3 1.5-8.1 #) [place] 007271-08-11 08:17:00 Test Item Value Reference Range Interpretation Comments Lymphocytes # (test code = Lymphocytes 0.7 1.0-5.5 #) [place] [address]-08-11 08:17:00 Test Item Value Reference Range Interpretation Comments Monocytes # (test code 0.2 See_Comment [Aut omated message] The = Monocytes #) system which generated this result tra nsmitted reference range : <=0.8. The reference r leo was not used to int erpret this result as normal/abnormal . [place] 007271-08-11 08:17:00 Test Item Value Reference Range Interpretation [...] (test code = Glucose Lvl) 94 70-99 [place] 301171-08-11 08:17:00 Test Item Value Reference Range Interpretation Comments BUN (test code = BUN) 27 7-22 [place] 301171-08-11 08:17:00 Test Item Value Reference Range Interpretation Comments Creatinine Lvl (test code = Creatinine 4.95 0.50-1.40 Lvl) [place] 301171-08-11 08:17:00 Test Item Value Reference Range Interpretation Comments Sodium Lvl (test code = Sodium Lvl) 136 135-145 [place] 301171-08-11 08:17:00 Test Item Value Reference Range Interpretation Comments Potassium Lvl (test code = Potassium 3.9 3.5-5.1 Lvl) [place] 301171-08-11 08:17:00 Test Item Value Reference Range Interpretation Comments Chloride Lvl (test code = Chloride Lvl) 103 95-109 [place] 301171-08-11 08:17:00 Test Item Value Reference Range Interpretation Comments CO2 (test code = CO2) 30 24-32 [place] [address]-08-11 08:17:00 Test Item Value Reference Range Interpretation Comments AGAP (test code = AGAP) 6.9 10.0-20.0 [place] 301171-08-11 08:17:00 Test Item Value Reference Range Interpretation Comments Calcium Lvl (test code = Calcium Lvl) 8.5 8.5-10.5 [place] 301171-08-11 08:17:00 Test Item Value Reference Range Interpretation Comments eGFR (test code = eGFR) 10 [place] 301171-08-11 08:17:00 Test Item Value Reference Range Interpretation Comments Phosphorus (test code = Phosphorus) 3.0 2.5-4.5 [place] 301171-08-11 08:17:00 Test Item Value Reference Range Interpretation Comments Magnesium Lvl (test code = Magnesium 2.4 1.8-2.4 Lvl) [place] 007271-08-11 08:17:00 Test Item Value Reference Range Interpretation Comments WBC (test code = WBC) 2.3 3.7-10.4 [place] 007271-08-11 08:17:00 Test Item Value Reference Range Interpretation Comments RBC (test code = RBC) 2.65 4.20-5.40 [place] 007271-08-11 08:17:00 Test Item Value Reference Range Interpretation Comments Hgb (test code = Hgb) 7.9 12.0-16.0 [place] [address]-08-11 08:17:00 Test Item Value Reference Range Interpretation Comments Hct (test code = Hct) 24.0 36.0-48.0 [place] [address]-08-11 08:17:00 Test Item Value Reference Range Interpretation Comments MCV (test code = MCV) 90.6 80.0-98.0 [place] [address]-08-11 08:17:00 Test Item Value Reference Range Interpretation Comments MCH (test code = MCH) 29.7 pg 27.0-31.0 [facility] HospitalZcyxwajFKGRSSCRVX1971-53-85 08:17:00 Test Item Value Reference Range Interpretation Comments MCHC (test code = MCHC) 32.7 32.0-36.0 [facility] HospitalSbmtjugIHFHSKEJIZ0665-32-29 08:17:00 Test Item Value Reference Range Interpretation Comments RDW (test code = RDW) 19.1 11.5-14.5 [place] 007271-08-11 08:17:00 Test Item Value Reference Range Interpretation Comments Platelet (test code = Platelet) 71 133-450 [facility] HospitalYyatrtiKDNNITPCPH5280-67-14 08:17:00 Test Item Value Reference Range Interpretation Comments MPV (test code = MPV) 9.9 7.4-10.4 [facility] HospitalAmkvjtjAKCRIIYXVO1300-48-91 08:17:00 Test Item Value Reference Range Interpretation Comments Segs (test code = Segs) 56.1 45.0-75.0 [facility] HospitalBgimfayZCWVQKXIKA1889-80-07 08:17:00 Test Item Value Reference Range Interpretation Comments Lymphocytes (test code = Lymphocytes) 28.9 20.0-40.0 [facility] HospitalVppzzafERASMSKXAM7981-67-88 08:17:00 Test Item Value Reference Range Interpretation Comments Monocytes (test code = Monocytes) 8.1 2.0-12.0 [facility] HospitalJtqqayzWXGKKVWYAL9318-96-97 08:17:00 Test Item Value Reference Range Interpretation Comments Eosinophils (test code = 5.9 See_Comment [A utomated message] The Eosinophils) system which ge nerated this result tra nsmitted reference range : <=4.0. The reference r leo was not used to int erpret this result as normal/abnormal . [facility] HospitalZezlkstOVZJGDGECU3597-75-72 08:17:00 Test Item Value Reference Range Interpretation Comments Basophils (test code = 1.0 See_Comment [Aut omated message] The Basophils) system which ge nerated this result tra nsmitted reference range : <=1.0. The reference r leo was not used to int erpret this result as normal/abnormal . [facility] HospitalJylpyrbJEJFMCWDJR7351-52-75 08:17:00 Test Item Value Reference Range Interpretation Comments Neutrophils # (test code = Neutrophils 1.3 1.5-8.1 #) [facility] HospitalBqfnbkuIQHAYVZQXP8090-35-51 08:17:00 Test Item Value Reference Range Interpretation Comments Lymphocytes # (test code = Lymphocytes 0.7 1.0-5.5 #) [place] 007271-08-11 08:17:00 Test Item Value Reference Range Interpretation Comments Monocytes # (test code 0.2 See_Comment [Aut omated message] The = Monocytes #) system which generated this result tra nsmitted reference range : <=0.8. The reference r leo was not used to int erpret this result as normal/abnormal . [place] 007271-08-11 08:17:00 Test Item Value Reference Range Interpretation Comments Eosinophils # (test code 0.1 See_Comment [A utomated message] The = Eosinophils #) system whic h generated this result tra nsmitted reference range : <=0.5. The reference r leo was not used to int erpret this result as normal/abnormal . [place] 301171-08-10 09:30:00 Test Item Value Reference Range Interpretation Comments Glucose Lvl (test code = Glucose Lvl) 61 70-99 [place] 301171-08-10 09:30:00 Test Item Value Reference Range Interpretation Comments BUN (test code = BUN) 13 7-22 [place] 301171-08-10 09:30:00 Test Item Value Reference Range Interpretation Comments Creatinine Lvl (test code = Creatinine 3.71 0.50-1.40 Lvl) [place] 301171-08-10 09:30:00 Test Item Value Reference Range Interpretation Comments Sodium Lvl (test code = Sodium Lvl) 136 135-145 [place] 301171-08-10 09:30:00 Test Item Value Reference Range Interpretation Comments Potassium Lvl (test code = Potassium 4.3 3.5-5.1 Lvl) [place] [address]-08-10 09:30:00 Test Item Value Reference Range Interpretation Comments Chloride Lvl (test code = Chloride Lvl) 103 95-109 [place] 301171-08-10 09:30:00 Test Item Value Reference Range Interpretation Comments CO2 (test code = CO2) 27 24-32 [place] 301171-08-10 09:30:00 Test Item Value Reference Range Interpretation Comments Calcium Lvl (test code = Calcium Lvl) 7.9 8.5-10.5 [place] 301171-08-10 09:30:00 Test Item Value Reference Range Interpretation Comments AGAP (test code = AGAP) 10.3 10.0-20.0 [place] 301171-08-10 09:30:00 Test Item Value Reference Range Interpretation Comments eGFR (test code = eGFR) 15 [place] 301171-08-10 09:30:00 Test Item Value Reference Range Interpretation Comments Magnesium Lvl (test code = Magnesium 2.3 1.8-2.4 Lvl) [place] 301171-08-10 09:30:00 Test Item Value Reference Range Interpretation Comments Phosphorus (test code = Phosphorus) 3.1 2.5-4.5 [place] 007271-08-10 09:30:00 Test Item Value Reference Range Interpretation Comments Segs (test code = Segs) 61.5 45.0-75.0 [place] 007271-08-10 09:30:00 Test Item Value Reference Range Interpretation Comments Lymphocytes (test code = Lymphocytes) 24.6 20.0-40.0 [place] 007271-08-10 09:30:00 Test Item Value Reference Range Interpretation Comments Monocytes (test code = Monocytes) 7.4 2.0-12.0 [place] 007271-08-10 09:30:00 Test Item Value Reference Range Interpretation Comments Eosinophils (test code = 5.5 See_Comment [A utomated message] The Eosinophils) system which ge nerated this result tra nsmitted reference range : <=4.0. The reference r leo was not used to int erpret this result as normal/abnormal . [place] 007271-08-10 09:30:00 Test Item Value Reference Range Interpretation Comments Basophils (test code = 1.0 See_Comment [Aut omated message] The Basophils) system which ge nerated this result tra nsmitted reference range : <=1.0. The reference r leo was not used to int erpret this result as normal/abnormal . [place] 007271-08-10 09:30:00 Test Item Value Reference Range Interpretation Comments Neutrophils # (test code = Neutrophils 1.6 1.5-8.1 #) [place] 007271-08-10 09:30:00 Test Item Value Reference Range Interpretation Comments Lymphocytes # (test code = Lymphocytes 0.6 1.0-5.5 #) [place] 007271-08-10 09:30:00 Test Item Value Reference Range Interpretation Comments Monocytes # (test code 0.2 See_Comment [Aut omated message] The = Monocytes #) system which generated this result tra nsmitted reference range : <=0.8. The reference r leo was not used to int erpret this result as normal/abnormal . [place] 007271-08-10 09:30:00 Test Item Value Reference Range Interpretation Comments Eosinophils # (test code 0.1 See_Comment [A utomated message] The = Eosinophils #) system whic h generated this result tra nsmitted reference range : <=0.5. The reference r leo was not used to int erpret this result as normal/abnormal . [place] 007271-08-10 09:30:00 Test Item Value Reference Range Interpretation [...] studies, if clinically indicated, are recommended. CPT: 38694 [place] 007271-08-10 09:30:00 Test Item Value Reference Range Interpretation Comments WBC (test code = WBC) 2.5 3.7-10.4 [place] [address]-08-10 09:30:00 Test Item Value Reference Range Interpretation Comments RBC (test code = RBC) 2.68 4.20-5.40 [place] 007271-08-10 09:30:00 Test Item Value Reference Range Interpretation Comments Hgb (test code = Hgb) 8.2 12.0-16.0 [place] 007271-08-10 09:30:00 Test Item Value Reference Range Interpretation Comments Hct (test code = Hct) 24.3 36.0-48.0 [place] 007271-08-10 09:30:00 Test Item Value Reference Range Interpretation Comments MCV (test code = MCV) 90.9 80.0-98.0 [place] 007271-08-10 09:30:00 Test Item Value Reference Range Interpretation Comments MCH (test code = MCH) 30.5 pg 27.0-31.0 [place] 007271-08-10 09:30:00 Test Item Value Reference Range Interpretation Comments MCHC (test code = MCHC) 33.6 32.0-36.0 [place] [address]-08-10 09:30:00 Test Item Value Reference Range Interpretation Comments RDW (test code = RDW) 19.4 11.5-14.5 [place] 007271-08-10 09:30:00 Test Item Value Reference Range Interpretation Comments Platelet (test code = Platelet) 70 133-450 [place] 007271-08-10 09:30:00 Test Item Value Reference Range Interpretation Comments MPV (test code = MPV) 10.7 7.4-10.4 [place] 301171-08-10 09:30:00 Test Item Value Reference Range Interpretation Comments Glucose Lvl (test code = Glucose Lvl) 61 70-99 [place] 301171-08-10 09:30:00 Test Item Value Reference Range Interpretation Comments BUN (test code = BUN) 13 7-22 [place] 301171-08-10 09:30:00 Test Item Value Reference Range Interpretation Comments Creatinine Lvl (test code = Creatinine 3.71 0.50-1.40 Lvl) [place] 301171-08-10 09:30:00 Test Item Value Reference Range Interpretation Comments Sodium Lvl (test code = Sodium Lvl) 136 135-145 [place] 301171-08-10 09:30:00 Test Item Value Reference Range Interpretation Comments Potassium Lvl (test code = Potassium 4.3 3.5-5.1 Lvl) [place] 301171-08-10 09:30:00 Test Item Value Reference Range Interpretation Comments Chloride Lvl (test code = Chloride Lvl) 103 95-109 [place] 301171-08-10 09:30:00 Test Item Value Reference Range Interpretation Comments CO2 (test code = CO2) 27 24-32 [place] 301171-08-10 09:30:00 Test Item Value Reference Range Interpretation Comments Calcium Lvl (test code = Calcium Lvl) 7.9 8.5-10.5 [place] 301171-08-10 09:30:00 Test Item Value Reference Range Interpretation Comments AGAP (test code = AGAP) 10.3 10.0-20.0 [place] 301171-08-10 09:30:00 Test Item Value Reference Range Interpretation Comments eGFR (test code = eGFR) 15 [place] 301171-08-10 09:30:00 Test Item Value Reference Range Interpretation Comments Magnesium Lvl (test code = Magnesium 2.3 1.8-2.4 Lvl) [place] 301171-08-10 09:30:00 Test Item Value Reference Range Interpretation Comments Phosphorus (test code = Phosphorus) 3.1 2.5-4.5 [place] 007271-08-10 09:30:00 Test Item Value Reference Range Interpretation Comments Segs (test code = Segs) 61.5 45.0-75.0 [place] 007271-08-10 09:30:00 Test Item Value Reference Range Interpretation Comments Lymphocytes (test code = Lymphocytes) 24.6 20.0-40.0 [place] [address]-08-10 09:30:00 Test Item Value Reference Range Interpretation Comments Monocytes (test code = Monocytes) 7.4 2.0-12.0 [place] [address]-08-10 09:30:00 Test Item Value Reference Range Interpretation Comments Eosinophils (test code = 5.5 See_Comment [A utomated message] The Eosinophils) system which ge nerated this result tra nsmitted reference range : <=4.0. The reference r leo was not used to int erpret this result as normal/abnormal . [place] 007271-08-10 09:30:00 Test Item Value Reference Range Interpretation Comments Basophils (test code = 1.0 See_Comment [Aut omated message] The Basophils) system which ge nerated this result tra nsmitted reference range : <=1.0. The reference r leo was not used to int erpret this result as normal/abnormal . [facility] HospitalEwcxnurHMLCBVWLKH6639-87-82 09:30:00 Test Item Value Reference Range Interpretation Comments Neutrophils # (test code = Neutrophils 1.6 1.5-8.1 #) [facility] HospitalAosqkviEGVVMXDMYP9089-69-74 09:30:00 Test Item Value Reference Range Interpretation Comments Lymphocytes # (test code = Lymphocytes 0.6 1.0-5.5 #) [place] 007271-08-10 09:30:00 Test Item Value Reference Range Interpretation Comments Monocytes # (test code 0.2 See_Comment [Aut omated message] The = Monocytes #) system which generated this result tra nsmitted reference range : <=0.8. The reference r leo was not used to int erpret this result as normal/abnormal . [place] 007271-08-10 09:30:00 Test Item Value Reference Range Interpretation Comments Eosinophils # (test code 0.1 See_Comment [A utomated message] The = Eosinophils #) system whic h generated this result tra nsmitted reference range : <=0.5. The reference r leo was not used to int erpret this result as normal/abnormal . [place] 007271-08-10 09:30:00 Test Item Value Reference Range Interpretation [...] studies, if clinically indicated, are recommended. CPT: 31919 [facility] HospitalIupolcuHMKUKTVIKM2575-37-70 09:30:00 Test Item Value Reference Range Interpretation Comments WBC (test code = WBC) 2.5 3.7-10.4 [place] [address]-08-10 09:30:00 Test Item Value Reference Range Interpretation Comments RBC (test code = RBC) 2.68 4.20-5.40 [place] 007271-08-10 09:30:00 Test Item Value Reference Range Interpretation Comments Hgb (test code = Hgb) 8.2 12.0-16.0 [place] 007271-08-10 09:30:00 Test Item Value Reference Range Interpretation Comments Hct (test code = Hct) 24.3 36.0-48.0 [place] 007271-08-10 09:30:00 Test Item Value Reference Range Interpretation Comments MCV (test code = MCV) 90.9 80.0-98.0 [place] 007271-08-10 09:30:00 Test Item Value Reference Range Interpretation Comments MCH (test code = MCH) 30.5 pg 27.0-31.0 [place] 007271-08-10 09:30:00 Test Item Value Reference Range Interpretation Comments MCHC (test code = MCHC) 33.6 32.0-36.0 [place] 007271-08-10 09:30:00 Test Item Value Reference Range Interpretation Comments RDW (test code = RDW) 19.4 11.5-14.5 [place] 007271-08-10 09:30:00 Test Item Value Reference Range Interpretation Comments Platelet (test code = Platelet) 70 133-450 [facility] HospitalUmxgfsrDCZWBBMDMA6595-60-32 09:30:00 Test Item Value Reference Range Interpretation Comments MPV (test code = MPV) 10.7 7.4-10.4 [place] 301171-08-10 09:30:00 Test Item Value Reference Range Interpretation Comments Glucose Lvl (test code = Glucose Lvl) 61 70-99 [facility]2021-08-10 09:30:00 Test Item Value Reference Range Interpretation Comments BUN (test code = BUN) 13 7-22 [facility]2021-08-10 09:30:00 Test Item Value Reference Range Interpretation Comments Creatinine Lvl (test code = Creatinine 3.71 0.50-1.40 Lvl) [facility]2021-08-10 09:30:00 Test Item Value Reference Range Interpretation Comments Sodium Lvl (test code = Sodium Lvl) 136 135-145 [place] 301171-08-10 09:30:00 Test Item Value Reference Range Interpretation Comments Potassium Lvl (test code = Potassium 4.3 3.5-5.1 Lvl) [place] 301171-08-10 09:30:00 Test Item Value Reference Range Interpretation Comments Chloride Lvl (test code = Chloride Lvl) 103 95-109 [place] 301171-08-10 09:30:00 Test Item Value Reference Range Interpretation Comments CO2 (test code = CO2) 27 24-32 [place] 301171-08-10 09:30:00 Test Item Value Reference Range Interpretation Comments Calcium Lvl (test code = Calcium Lvl) 7.9 8.5-10.5 [place] [address]-08-10 09:30:00 Test Item Value Reference Range Interpretation Comments AGAP (test code = AGAP) 10.3 10.0-20.0 [place] 301171-08-10 09:30:00 Test Item Value Reference Range Interpretation Comments eGFR (test code = eGFR) 15 [place] 301171-08-10 09:30:00 Test Item Value Reference Range Interpretation Comments Magnesium Lvl (test code = Magnesium 2.3 1.8-2.4 Lvl) [place] 301171-08-10 09:30:00 Test Item Value Reference Range Interpretation Comments Phosphorus (test code = Phosphorus) 3.1 2.5-4.5 [place] 007271-08-10 09:30:00 Test Item Value Reference Range Interpretation Comments Segs (test code = Segs) 61.5 45.0-75.0 [place] 007271-08-10 09:30:00 Test Item Value Reference Range Interpretation Comments Lymphocytes (test code = Lymphocytes) 24.6 20.0-40.0 [place] [address]-08-10 09:30:00 Test Item Value Reference Range Interpretation Comments Monocytes (test code = Monocytes) 7.4 2.0-12.0 [place] [address]-08-10 09:30:00 Test Item Value Reference Range Interpretation Comments Eosinophils (test code = 5.5 See_Comment [A utomated message] The Eosinophils) system which ge nerated this result tra nsmitted reference range : <=4.0. The reference r leo was not used to int erpret this result as normal/abnormal . [place] 007271-08-10 09:30:00 Test Item Value Reference Range Interpretation Comments Basophils (test code = 1.0 See_Comment [Aut omated message] The Basophils) system which ge nerated this result tra nsmitted reference range : <=1.0. The reference r leo was not used to int erpret this result as normal/abnormal . [facility]nosorwFEGAOARNBU7944[facility]35-42 09:30:00 Test Item Value Reference Range Interpretation Comments Neutrophils # (test code = Neutrophils 1.6 1.5-8.1 #) [facility] HospitalJokhbssQPJCPABNGQ2820-99-56 09:30:00 Test Item Value Reference Range Interpretation Comments Lymphocytes # (test code = Lymphocytes 0.6 1.0-5.5 #) [facility] HospitalSyqcvzpVHNDMSVGVT5650-85-13 09:30:00 Test Item Value Reference Range Interpretation Comments Monocytes # (test code 0.2 See_Comment [Aut omated message] The = Monocytes #) system which generated this result tra nsmitted reference range : <=0.8. The reference r leo was not used to int erpret this result as normal/abnormal . [facility] HospitalIvsthkoERTBIJSJRQ0955-84-59 09:30:00 Test Item Value Reference Range Interpretation Comments Eosinophils # (test code 0.1 See_Comment [A utomated message] The = Eosinophils #) system whic h generated this result tra nsmitted reference range : <=0.5. The reference r leo was not used to int erpret this result as normal/abnormal . [facility] HospitalZpzztetHPOJCRBGHE9023-01-32 09:30:00 Test Item Value Reference Range Interpretation [...] studies, if clinically indicated, are recommended. CPT: 40481 [facility] HospitalTodnelmOXBVMXIUQC9865-94-58 09:30:00 Test Item Value Reference Range Interpretation Comments WBC (test code = WBC) 2.5 3.7-10.4 [place] 007271-08-10 09:30:00 Test Item Value Reference Range Interpretation Comments RBC (test code = RBC) 2.68 4.20-5.40 [place] 007271-08-10 09:30:00 Test Item Value Reference Range Interpretation Comments Hgb (test code = Hgb) 8.2 12.0-16.0 [place] [address]-08-10 09:30:00 Test Item Value Reference Range Interpretation Comments Hct (test code = Hct) 24.3 36.0-48.0 [place] [address]-08-10 09:30:00 Test Item Value Reference Range Interpretation Comments MCV (test code = MCV) 90.9 80.0-98.0 [place] 007271-08-10 09:30:00 Test Item Value Reference Range Interpretation Comments MCH (test code = MCH) 30.5 pg 27.0-31.0 [place] 007271-08-10 09:30:00 Test Item Value Reference Range Interpretation Comments MCHC (test code = MCHC) 33.6 32.0-36.0 [place] 007271-08-10 09:30:00 Test Item Value Reference Range Interpretation Comments RDW (test code = RDW) 19.4 11.5-14.5 [facility] HospitalVzxcyysNNOZCFIKSL8285-91-93 09:30:00 Test Item Value Reference Range Interpretation Comments Platelet (test code = Platelet) 70 133-450 [facility] HospitalOwtgvneOCOWOYDEGB2084-83-75 09:30:00 Test Item Value Reference Range Interpretation Comments MPV (test code = MPV) 10.7 7.4-10.4 [facility]2021-08-10 09:30:00 Test Item Value Reference Range Interpretation Comments Glucose Lvl (test code = Glucose Lvl) 61 70-99 [place] 301171-08-10 09:30:00 Test Item Value Reference Range Interpretation Comments BUN (test code = BUN) 13 7-22 [place] 301171-08-10 09:30:00 Test Item Value Reference Range Interpretation Comments Creatinine Lvl (test code = Creatinine 3.71 0.50-1.40 Lvl) [facility]2021-08-10 09:30:00 Test Item Value Reference Range Interpretation Comments Sodium Lvl (test code = Sodium Lvl) 136 135-145 [place] 301171-08-10 09:30:00 Test Item Value Reference Range Interpretation Comments Potassium Lvl (test code = Potassium 4.3 3.5-5.1 Lvl) [place] 301171-08-10 09:30:00 Test Item Value Reference Range Interpretation Comments Chloride Lvl (test code = Chloride Lvl) 103 95-109 [place] 301171-08-10 09:30:00 Test Item Value Reference Range Interpretation Comments CO2 (test code = CO2) 27 24-32 [place] 301171-08-10 09:30:00 Test Item Value Reference Range Interpretation Comments Calcium Lvl (test code = Calcium Lvl) 7.9 8.5-10.5 [place] 301171-08-10 09:30:00 Test Item Value Reference Range Interpretation Comments AGAP (test code = AGAP) 10.3 10.0-20.0 [place] 301171-08-10 09:30:00 Test Item Value Reference Range Interpretation Comments eGFR (test code = eGFR) 15 [place] 301171-08-10 09:30:00 Test Item Value Reference Range Interpretation Comments Magnesium Lvl (test code = Magnesium 2.3 1.8-2.4 Lvl) [place] 301171-08-10 09:30:00 Test Item Value Reference Range Interpretation Comments Phosphorus (test code = Phosphorus) 3.1 2.5-4.5 [place] 007271-08-10 09:30:00 Test Item Value Reference Range Interpretation Comments Segs (test code = Segs) 61.5 45.0-75.0 [place] 007271-08-10 09:30:00 Test Item Value Reference Range Interpretation Comments Lymphocytes (test code = Lymphocytes) 24.6 20.0-40.0 [place] [address]-08-10 09:30:00 Test Item Value Reference Range Interpretation Comments Monocytes (test code = Monocytes) 7.4 2.0-12.0 [place] [address]-08-10 09:30:00 Test Item Value Reference Range Interpretation Comments Eosinophils (test code = 5.5 See_Comment [A utomated message] The Eosinophils) system which ge nerated this result tra nsmitted reference range : <=4.0. The reference r leo was not used to int erpret this result as normal/abnormal . [place] [address]-08-10 09:30:00 Test Item Value Reference Range Interpretation Comments Basophils (test code = 1.0 See_Comment [Aut omated message] The Basophils) system which ge nerated this result tra nsmitted reference range : <=1.0. The reference r leo was not used to int erpret this result as normal/abnormal . [place] [address]-08-10 09:30:00 Test Item Value Reference Range Interpretation Comments Neutrophils # (test code = Neutrophils 1.6 1.5-8.1 #) [place] [address]-08-10 09:30:00 Test Item Value Reference Range Interpretation Comments Lymphocytes # (test code = Lymphocytes 0.6 1.0-5.5 #) [place] [address]-08-10 09:30:00 Test Item Value Reference Range Interpretation Comments Monocytes # (test code 0.2 See_Comment [Aut omated message] The = Monocytes #) system which generated this result tra nsmitted reference range : <=0.8. The reference r leo was not used to int erpret this result as normal/abnormal . [place] [address]-08-10 09:30:00 Test Item Value Reference Range Interpretation Comments Eosinophils # (test code 0.1 See_Comment [A utomated message] The = Eosinophils #) system [facility] generated this result tra nsmitted reference range : <=0.5. The reference r leo was not used to int erpret this result as normal/abnormal . [place] 007271-08-10 09:30:00 Test Item Value Reference Range Interpretation [...] studies, if clinically indicated, are recommended. CPT: 91984 [facility] HospitalOoqmlebBHCSLFWXJA3188-71-64 09:30:00 Test Item Value Reference Range Interpretation Comments WBC (test code = WBC) 2.5 3.7-10.4 [facility] HospitalUnpqwpoYQWOBROUHN8690-24-00 09:30:00 Test Item Value Reference Range Interpretation Comments RBC (test code = RBC) 2.68 4.20-5.40 [facility] HospitalKakarauCDKTELLCQR7557-83-82 09:30:00 Test Item Value Reference Range Interpretation Comments Hgb (test code = Hgb) 8.2 12.0-16.0 [facility] HospitalChzqpjbGSTUEOGEDX6456-85-71 09:30:00 Test Item Value Reference Range Interpretation Comments Hct (test code = Hct) 24.3 36.0-48.0 [facility] HospitalPazgyxsLCTQHXLWQR2811-62-40 09:30:00 Test Item Value Reference Range Interpretation Comments MCV (test code = MCV) 90.9 80.0-98.0 [place] 007271-08-10 09:30:00 Test Item Value Reference Range Interpretation Comments MCH (test code = MCH) 30.5 pg 27.0-31.0 [facility] HospitalFelqubwCZFYNUVXRY9061-37-49 09:30:00 Test Item Value Reference Range Interpretation Comments MCHC (test code = MCHC) 33.6 32.0-36.0 [facility] HospitalXrucdwiXYVILRAEZI7668-48-94 09:30:00 Test Item Value Reference Range Interpretation Comments RDW (test code = RDW) 19.4 11.5-14.5 [facility] HospitalAsyfwhjZELNMBCSMY3844-62-08 09:30:00 Test Item Value Reference Range Interpretation Comments Platelet (test code = Platelet) 70 133-450 [facility] HospitalRvmbyohANRPRFYKRA8707-94-11 09:30:00 Test Item Value Reference Range Interpretation [...] BUN (test code = BUN) 13 7-22 [place] 301171-08-10 09:30:00 Test Item Value Reference Range Interpretation Comments Creatinine Lvl (test code = Creatinine 3.71 0.50-1.40 Lvl) [place] 301171-08-10 09:30:00 Test Item Value Reference Range Interpretation Comments Sodium Lvl (test code = Sodium Lvl) 136 135-145 [place] 301171-08-10 09:30:00 Test Item Value Reference Range Interpretation Comments Potassium Lvl (test code = Potassium 4.3 3.5-5.1 Lvl) [place] 301171-08-10 09:30:00 Test Item Value Reference Range Interpretation Comments Chloride Lvl (test code = Chloride Lvl) 103 95-109 [place] 301171-08-10 09:30:00 Test Item Value Reference Range Interpretation Comments CO2 (test code = CO2) 27 24-32 [place] 301171-08-10 09:30:00 Test Item Value Reference Range Interpretation Comments Calcium Lvl (test code = Calcium Lvl) 7.9 8.5-10.5 [place] 301171-08-10 09:30:00 Test Item Value Reference Range Interpretation Comments AGAP (test code = AGAP) 10.3 10.0-20.0 [place] 301171-08-10 09:30:00 Test Item Value Reference Range Interpretation Comments eGFR (test code = eGFR) 15 [place] 301171-08-10 09:30:00 Test Item Value Reference Range Interpretation Comments Magnesium Lvl (test code = Magnesium 2.3 1.8-2.4 Lvl) [place] 301171-08-10 09:30:00 Test Item Value Reference Range Interpretation Comments Phosphorus (test code = Phosphorus) 3.1 2.5-4.5 [place] 007271-08-10 09:30:00 Test Item Value Reference Range Interpretation Comments Segs (test code = Segs) 61.5 45.0-75.0 [place] 007271-08-10 09:30:00 Test Item Value Reference Range Interpretation Comments Lymphocytes (test code = Lymphocytes) 24.6 20.0-40.0 [place] 007271-08-10 09:30:00 Test Item Value Reference Range Interpretation Comments Monocytes (test code = Monocytes) 7.4 2.0-12.0 [place] 007271-08-10 09:30:00 Test Item Value Reference Range Interpretation Comments Eosinophils (test code = 5.5 See_Comment [A utomated message] The Eosinophils) system which ge nerated this result tra nsmitted reference range : <=4.0. The reference r leo was not used to int erpret this result as normal/abnormal . [place] 007271-08-10 09:30:00 Test Item Value Reference Range Interpretation Comments Basophils (test code = 1.0 See_Comment [Aut omated message] The Basophils) system which ge nerated this result tra nsmitted reference range : <=1.0. The reference r leo was not used to int erpret this result as normal/abnormal . [place] 007271-08-10 09:30:00 Test Item Value Reference Range Interpretation Comments Neutrophils # (test code = Neutrophils 1.6 1.5-8.1 #) [place] 007271-08-10 09:30:00 Test Item Value Reference Range Interpretation Comments Lymphocytes # (test code = Lymphocytes 0.6 1.0-5.5 #) [place] 007271-08-10 09:30:00 Test Item Value Reference Range Interpretation Comments Monocytes # (test code 0.2 See_Comment [Aut omated message] The = Monocytes #) system which generated this result tra nsmitted reference range : <=0.8. The reference r leo was not used to int erpret this result as normal/abnormal . [place] 007271-08-10 09:30:00 Test Item Value Reference Range Interpretation Comments Eosinophils # (test code 0.1 See_Comment [A utomated message] The = Eosinophils #) system whic h generated this result tra nsmitted reference range : <=0.5. The reference r leo was not used to int erpret this result as normal/abnormal . [place] 007271-08-10 09:30:00 Test Item Value Reference Range Interpretation [...] studies, if clinically indicated, are recommended. CPT: 59079 [facility] HospitalLrxnybyVCOQMLHYVE3078-00-80 09:30:00 Test Item Value Reference Range Interpretation Comments WBC (test code = WBC) 2.5 3.7-10.4 [facility] HospitalWbccwybNLXCEZEFKM7242-67-29 09:30:00 Test Item Value Reference Range Interpretation Comments RBC (test code = RBC) 2.68 4.20-5.40 [place] 007271-08-10 09:30:00 Test Item Value Reference Range Interpretation Comments Hgb (test code = Hgb) 8.2 12.0-16.0 [facility] HospitalOxnplypIBCOKHRSLF8173-14-61 09:30:00 Test Item Value Reference Range Interpretation Comments Hct (test code = Hct) 24.3 36.0-48.0 [facility] HospitalJnkcppvBBQSPNMJXK5533-76-04 09:30:00 Test Item Value Reference Range Interpretation Comments MCV (test code = MCV) 90.9 80.0-98.0 [facility] HospitalZztfkucNVTJJKXLTN1396-41-74 09:30:00 Test Item Value Reference Range Interpretation Comments MCH (test code = MCH) 30.5 pg 27.0-31.0 [facility] HospitalIhgqqwyQGAGQAEZEN1589-23-07 09:30:00 Test Item Value Reference Range Interpretation Comments MCHC (test code = MCHC) 33.6 32.0-36.0 [facility] HospitalAoeddcvFVLWRAVPNF2853-77-56 09:30:00 Test Item Value Reference Range Interpretation Comments RDW (test code = RDW) 19.4 11.5-14.5 [place] 007271-08-10 09:30:00 Test Item Value Reference Range Interpretation Comments Platelet (test code = Platelet) 70 133-450 [facility] HospitalYorgjxwOEUPAZLBYW7948-46-98 09:30:00 Test Item Value Reference Range Interpretation Comments MPV (test code = MPV) 10.7 7.4-10.4 [facility]2021-08-09 05:10:00 Test Item Value Reference Range Interpretation Comments Glucose Lvl (test code = Glucose Lvl) 69 70-99 [place] 301171-08-09 05:10:00 Test Item Value Reference Range Interpretation Comments BUN (test code = BUN) 29 7-22 [place] 301171-08-09 05:10:00 Test Item Value Reference Range Interpretation Comments Creatinine Lvl (test code = Creatinine 5.14 0.50-1.40 Lvl) [place] 301171-08-09 05:10:00 Test Item Value Reference Range Interpretation Comments Sodium Lvl (test code = Sodium Lvl) 134 135-145 [place] 301171-08-09 05:10:00 Test Item Value Reference Range Interpretation Comments Potassium Lvl (test code = Potassium 5.1 3.5-5.1 Lvl) [place] 301171-08-09 05:10:00 Test Item Value Reference Range Interpretation Comments Chloride Lvl (test code = Chloride Lvl) 98 95-109 [place] 301171-08-09 05:10:00 Test Item Value Reference Range Interpretation Comments CO2 (test code = CO2) 29 24-32 [place] 301171-08-09 05:10:00 Test Item Value Reference Range Interpretation Comments Calcium Lvl (test code = Calcium Lvl) 7.6 8.5-10.5 [place] 301171-08-09 05:10:00 Test Item Value Reference Range Interpretation Comments AGAP (test code = AGAP) 12.1 10.0-20.0 [place] 301171-08-09 05:10:00 Test Item Value Reference Range Interpretation Comments eGFR (test code = eGFR) 10 [place] 301171-08-09 05:10:00 Test Item Value Reference Range Interpretation Comments Magnesium Lvl (test code = Magnesium 2.3 1.8-2.4 Lvl) [place] 301171-08-09 05:10:00 Test Item Value Reference Range Interpretation Comments Phosphorus (test code = Phosphorus) 5.0 2.5-4.5 [place] 007271-08-09 05:10:00 Test Item Value Reference Range Interpretation Comments WBC (test code = WBC) 2.7 3.7-10.4 [place] 007271-08-09 05:10:00 Test Item Value Reference Range Interpretation Comments RBC (test code = RBC) 2.80 4.20-5.40 [facility] HospitalTkjsyxiUWBBQUNQQF4159-60-68 05:10:00 Test Item Value Reference Range Interpretation Comments Hgb (test code = Hgb) 8.5 12.0-16.0 [place] 007271-08-09 05:10:00 Test Item Value Reference Range Interpretation Comments Hct (test code = Hct) 25.7 36.0-48.0 [facility] HospitalRipbakyXXIDTFDQXP0627-80-20 05:10:00 Test Item Value Reference Range Interpretation Comments MCV (test code = MCV) 91.7 80.0-98.0 [facility] HospitalPvqnxagWJXEJMCUOS2813-91-58 05:10:00 Test Item Value Reference Range Interpretation Comments MCH (test code = MCH) 30.4 pg 27.0-31.0 [facility] HospitalNzeceksQPNHYMGKVW6119-31-24 05:10:00 Test Item Value Reference Range Interpretation Comments MCHC (test code = MCHC) 33.1 32.0-36.0 [facility] HospitalRnorxosVIMNHGDBJN7618-94-04 05:10:00 Test Item Value Reference Range Interpretation Comments RDW (test code = RDW) 19.2 11.5-14.5 [facility] HospitalTcehmlcTIDICDDZOG5117-15-40 05:10:00 Test Item Value Reference Range Interpretation Comments Platelet (test code = Platelet) 72 133-450 [facility] HospitalAohnxbqBCSZXDUXOO0062-13-76 05:10:00 Test Item Value Reference Range Interpretation Comments MPV (test code = MPV) 9.9 7.4-10.4 [facility] HospitalSqrnervICPVZYGPHV2605-22-94 05:10:00 Test Item Value Reference Range Interpretation Comments Segs (test code = Segs) 72.6 45.0-75.0 [facility] HospitalTjxlyuuDELIVHRASL0731-39-98 05:10:00 Test Item Value Reference Range Interpretation Comments Lymphocytes (test code = Lymphocytes) 15.9 20.0-40.0 [place] 007271-08-09 05:10:00 Test Item Value Reference Range Interpretation Comments Monocytes (test code = Monocytes) 7.3 2.0-12.0 [place] 007271-08-09 05:10:00 Test Item Value Reference Range Interpretation Comments Eosinophils (test code = 3.4 See_Comment [A utomated message] The Eosinophils) system which ge nerated this result tra nsmitted reference range : <=4.0. The reference r leo was not used to int erpret this result as normal/abnormal . [facility] HospitalRltzvsyWSNOXOSCQG8559-44-28 05:10:00 Test Item Value Reference Range Interpretation Comments Basophils (test code = 0.8 See_Comment [Aut omated message] The Basophils) system which ge nerated this result tra nsmitted reference range : <=1.0. The reference r leo was not used to int erpret this result as normal/abnormal . [facility] HospitalXmlznyhWVQRTWYCPS6456-49-80 05:10:00 Test Item Value Reference Range Interpretation Comments Neutrophils # (test code = Neutrophils 1.9 1.5-8.1 #) [facility] HospitalGfuehteSMLUUIATZU7228-64-64 05:10:00 Test Item Value Reference Range Interpretation Comments Lymphocytes # (test code = Lymphocytes 0.4 1.0-5.5 #) [facility] HospitalBnotdmcYWGCFJLFKM2731-21-75 05:10:00 Test Item Value Reference Range Interpretation Comments Monocytes # (test code 0.2 See_Comment [Aut omated message] The = Monocytes #) system which generated this result tra nsmitted reference range : <=0.8. The reference r leo was not used to int erpret this result as normal/abnormal . [facility] HospitalZgkflcpXPAPLLYKBX6694-32-77 05:10:00 Test Item Value Reference Range Interpretation Comments Eosinophils # (test code 0.1 See_Comment [A utomated message] The = Eosinophils #) system whic h generated this result tra nsmitted reference range : <=0.5. The reference r leo was not used to int erpret this result as normal/abnormal . [facility] KWIFFKS7437-08-29 05:10:00 Test Item Value Reference Range Interpretation Comments Ca Ion WB (test code = Ca Ion WB) 1.10 1.05-1.25 [facility] HLGWTFB7401-78-41 05:10:00 Test Item Value Reference Range Interpretation Comments Ca Norm WB (test code = Ca Norm WB) 1.06 1.05-1.25 [facility] PQTAX2250-27-37 05:10:00 Test Item Value Reference Range Interpretation Comments Glucose Lvl (test code = Glucose Lvl) 69 70-99 [place] 301171-08-09 05:10:00 Test Item Value Reference Range Interpretation Comments BUN (test code = BUN) 29 7-22 [place] 301171-08-09 05:10:00 Test Item Value Reference Range Interpretation Comments Creatinine Lvl (test code = Creatinine 5.14 0.50-1.40 Lvl) [place] 301171-08-09 05:10:00 Test Item Value Reference Range Interpretation Comments Sodium Lvl (test code = Sodium Lvl) 134 135-145 [place] 301171-08-09 05:10:00 Test Item Value Reference Range Interpretation Comments Potassium Lvl (test code = Potassium 5.1 3.5-5.1 Lvl) [place] 301171-08-09 05:10:00 Test Item Value Reference Range Interpretation Comments Chloride Lvl (test code = Chloride Lvl) 98 95-109 [place] 301171-08-09 05:10:00 Test Item Value Reference Range Interpretation Comments CO2 (test code = CO2) 29 24-32 [place] 301171-08-09 05:10:00 Test Item Value Reference Range Interpretation Comments Calcium Lvl (test code = Calcium Lvl) 7.6 8.5-10.5 [place] 301171-08-09 05:10:00 Test Item Value Reference Range Interpretation Comments AGAP (test code = AGAP) 12.1 10.0-20.0 [place] 301171-08-09 05:10:00 Test Item Value Reference Range Interpretation Comments eGFR (test code = eGFR) 10 [place] 301171-08-09 05:10:00 Test Item Value Reference Range Interpretation Comments Magnesium Lvl (test code = Magnesium 2.3 1.8-2.4 Lvl) [place] 301171-08-09 05:10:00 Test Item Value Reference Range Interpretation Comments Phosphorus (test code = Phosphorus) 5.0 2.5-4.5 [place] 007271-08-09 05:10:00 Test Item Value Reference Range Interpretation Comments WBC (test code = WBC) 2.7 3.7-10.4 [place] 007271-08-09 05:10:00 Test Item Value Reference Range Interpretation Comments RBC (test code = RBC) 2.80 4.20-5.40 [facility] HospitalSoosifzTUDKJXDXWV5940-90-78 05:10:00 Test Item Value Reference Range Interpretation Comments Hgb (test code = Hgb) 8.5 12.0-16.0 [place] 007271-08-09 05:10:00 Test Item Value Reference Range Interpretation Comments Hct (test code = Hct) 25.7 36.0-48.0 [facility] HospitalBrjyglwEZEGMNUVMP5922-13-92 05:10:00 Test Item Value Reference Range Interpretation Comments MCV (test code = MCV) 91.7 80.0-98.0 [facility] HospitalPlxjxteZMHFSVJVHQ4627-71-54 05:10:00 Test Item Value Reference Range Interpretation Comments MCH (test code = MCH) 30.4 pg 27.0-31.0 [facility]JknnjayROMEUHNKCL8211-24-91 05:10:00 Test Item Value Reference Range Interpretation Comments MCHC (test code = MCHC) 33.1 32.0-36.0 [facility] HospitalBsuwtbcTUXCRJHLYY6429-98-37 05:10:00 Test Item Value Reference Range Interpretation Comments RDW (test code = RDW) 19.2 11.5-14.5 [facility] HospitalGziychcLFOMSOHEEV5967-78-58 05:10:00 Test Item Value Reference Range Interpretation Comments Platelet (test code = Platelet) 72 133-450 [facility] HospitalMzawuumELYDVLXYBU0565-21-54 05:10:00 Test Item Value Reference Range Interpretation Comments MPV (test code = MPV) 9.9 7.4-10.4 [facility] HospitalAtkwpzwQIPJHXDFZT2377-07-36 05:10:00 Test Item Value Reference Range Interpretation Comments Segs (test code = Segs) 72.6 45.0-75.0 [facility] HospitalTvxtjxyDSJRQHFHFC4038-79-85 05:10:00 Test Item Value Reference Range Interpretation Comments Lymphocytes (test code = Lymphocytes) 15.9 20.0-40.0 [place] [id number] 05:10:00 Test Item Value Reference Range Interpretation Comments Monocytes (test code = Monocytes) 7.3 2.0-12.0 [place] 007271-08-09 05:10:00 Test Item Value Reference Range Interpretation Comments Eosinophils (test code = 3.4 See_Comment [A utomated message] The Eosinophils) system which ge nerated this result tra nsmitted reference range : <=4.0. The reference r leo was not used to int erpret this result as normal/abnormal . [facility] HospitalHkflfcqFWPNEKMDAP5654-94-82 05:10:00 Test Item Value Reference Range Interpretation Comments Basophils (test code = 0.8 See_Comment [Aut omated message] The Basophils) system which ge nerated this result tra nsmitted reference range : <=1.0. The reference r leo was not used to int erpret this result as normal/abnormal . [facility] HospitalQeqaqkcGVGTJBEYVQ2471-35-87 05:10:00 Test Item Value Reference Range Interpretation Comments Neutrophils # (test code = Neutrophils 1.9 1.5-8.1 #) [facility] HospitalJivrjliEVKPQFYXDE6190-13-08 05:10:00 Test Item Value Reference Range Interpretation Comments Lymphocytes # (test code = Lymphocytes 0.4 1.0-5.5 #) [facility] HospitalZrisntnWTLLOQCWZC4925-84-31 05:10:00 Test Item Value Reference Range Interpretation Comments Monocytes # (test code 0.2 See_Comment [Aut omated message] The = Monocytes #) system which generated this result tra nsmitted reference range : <=0.8. The reference r leo was not used to int erpret this result as normal/abnormal . [facility] HospitalGbyssrlIUUAJQYAOB8684-25-98 05:10:00 Test Item Value Reference Range Interpretation Comments Eosinophils # (test code 0.1 See_Comment [A utomated message] The = Eosinophils #) system whic h generated this result tra nsmitted reference range : <=0.5. The reference r leo was not used to int erpret this result as normal/abnormal . [facility] BKELVVK4690-54-58 05:10:00 Test Item Value Reference Range Interpretation Comments Ca Ion WB (test code = Ca Ion WB) 1.10 1.05-1.25 [facility] [id number] 05:10:00 Test Item Value Reference Range Interpretation Comments Ca Norm WB (test code = Ca Norm WB) 1.06 1.05-1.25 [facility] [id number] 05:10:00 Test Item Value Reference Range Interpretation Comments Glucose Lvl (test code = Glucose Lvl) 69 70-99 [place] 301171-08-09 05:10:00 Test Item Value Reference Range Interpretation Comments BUN (test code = BUN) 29 7-22 [place] 301171-08-09 05:10:00 Test Item Value Reference Range Interpretation Comments Creatinine Lvl (test code = Creatinine 5.14 0.50-1.40 Lvl) [place] 301171-08-09 05:10:00 Test Item Value Reference Range Interpretation Comments Sodium Lvl (test code = Sodium Lvl) 134 135-145 [place] 301171-08-09 05:10:00 Test Item Value Reference Range Interpretation Comments Potassium Lvl (test code = Potassium 5.1 3.5-5.1 Lvl) [place] 301171-08-09 05:10:00 Test Item Value Reference Range Interpretation Comments Chloride Lvl (test code = Chloride Lvl) 98 95-109 [place] 301171-08-09 05:10:00 Test Item Value Reference Range Interpretation Comments CO2 (test code = CO2) 29 24-32 [place] 301171-08-09 05:10:00 Test Item Value Reference Range Interpretation Comments Calcium Lvl (test code = Calcium Lvl) 7.6 8.5-10.5 [place] 301171-08-09 05:10:00 Test Item Value Reference Range Interpretation Comments AGAP (test code = AGAP) 12.1 10.0-20.0 [place] 301171-08-09 05:10:00 Test Item Value Reference Range Interpretation Comments eGFR (test code = eGFR) 10 [place] 301171-08-09 05:10:00 Test Item Value Reference Range Interpretation Comments Magnesium Lvl (test code = Magnesium 2.3 1.8-2.4 Lvl) [place] 301171-08-09 05:10:00 Test Item Value Reference Range Interpretation Comments Phosphorus (test code = Phosphorus) 5.0 2.5-4.5 [place] 007271-08-09 05:10:00 Test Item Value Reference Range Interpretation Comments WBC (test code = WBC) 2.7 3.7-10.4 [place] 007271-08-09 05:10:00 Test Item Value Reference Range Interpretation Comments RBC (test code = RBC) 2.80 4.20-5.40 [facility] HospitalKhzrzvbCCXUQAOHVR7696-68-70 05:10:00 Test Item Value Reference Range Interpretation Comments Hgb (test code = Hgb) 8.5 12.0-16.0 [place] 007271-08-09 05:10:00 Test Item Value Reference Range Interpretation Comments Hct (test code = Hct) 25.7 36.0-48.0 [facility] HospitalDvhncnaMOWICEODLZ6422-17-06 05:10:00 Test Item Value Reference Range Interpretation Comments MCV (test code = MCV) 91.7 80.0-98.0 [facility] HospitalBsbbqlzYZIYODNSYK4606-65-82 05:10:00 Test Item Value Reference Range Interpretation Comments MCH (test code = MCH) 30.4 pg 27.0-31.0 [facility] HospitalKubfgmkBHLWFNEKKY2469-86-90 05:10:00 Test Item Value Reference Range Interpretation Comments MCHC (test code = MCHC) 33.1 32.0-36.0 [facility] HospitalWoiyhjwVYNKDKHZUI8030-19-87 05:10:00 Test Item Value Reference Range Interpretation Comments RDW (test code = RDW) 19.2 11.5-14.5 [facility] HospitalHsxjpdsMDVBROZTCP7864-77-86 05:10:00 Test Item Value Reference Range Interpretation Comments Platelet (test code = Platelet) 72 133-450 [facility] HospitalRzszqhaIHWDQMYFLR3802-17-87 05:10:00 Test Item Value Reference Range Interpretation Comments MPV (test code = MPV) 9.9 7.4-10.4 [facility] HospitalYbjhhenPSSYIJCSWA7277-18-15 05:10:00 Test Item Value Reference Range Interpretation Comments Segs (test code = Segs) 72.6 45.0-75.0 [facility] HospitalJrqjhltQMJGSLGFLI1136-27-47 05:10:00 Test Item Value Reference Range Interpretation Comments Lymphocytes (test code = Lymphocytes) 15.9 20.0-40.0 [place] 007271-08-09 05:10:00 Test Item Value Reference Range Interpretation Comments Monocytes (test code = Monocytes) 7.3 2.0-12.0 [place] 007271-08-09 05:10:00 Test Item Value Reference Range Interpretation Comments Eosinophils (test code = 3.4 See_Comment [A utomated message] The Eosinophils) system which ge nerated this result tra nsmitted reference range : <=4.0. The reference r leo was not used to int erpret this result as normal/abnormal . [facility] HospitalMawakywTMRIDFQDOO5707-54-52 05:10:00 Test Item Value Reference Range Interpretation Comments Basophils (test code = 0.8 See_Comment [Aut omated message] The Basophils) system which ge nerated this result tra nsmitted reference range : <=1.0. The reference r leo was not used to int erpret this result as normal/abnormal . [facility] HospitalJodnuzaYQCGFUJMOA2010-85-89 05:10:00 Test Item Value Reference Range Interpretation Comments Neutrophils # (test code = Neutrophils 1.9 1.5-8.1 #) [facility] HospitalJdqsnzeAFBFSRBLYJ9812-82-47 05:10:00 Test Item Value Reference Range Interpretation Comments Lymphocytes # (test code = Lymphocytes 0.4 1.0-5.5 #) [facility] HospitalAoldktyZVGREPKQTT0225-61-54 05:10:00 Test Item Value Reference Range Interpretation Comments Monocytes # (test code 0.2 See_Comment [Aut omated message] The = Monocytes #) system which generated this result tra nsmitted reference range : <=0.8. The reference r leo was not used to int erpret this result as normal/abnormal . [facility] HospitalIykorxxTAFFCPMTBL6273-13-80 05:10:00 Test Item Value Reference Range Interpretation Comments Eosinophils # (test code 0.1 See_Comment [A utomated message] The = Eosinophils #) system whic h generated this result tra nsmitted reference range : <=0.5. The reference r leo was not used to int erpret this result as normal/abnormal . [facility] HospitalATHYROID NUMKAYC3065-82-92 05:10:00 Test Item Value Reference Range Interpretation Comments Ca Ion WB (test code = Ca Ion WB) 1.10 1.05-1.25 [facility] CenterRO[facility] [id number] 05:10:00 Test Item Value Reference Range Interpretation Comments Ca Norm WB (test code = Ca Norm WB) 1.06 1.05-1.25 [facility] [id number] 05:10:00 Test Item Value Reference Range Interpretation Comments Glucose Lvl (test code = Glucose Lvl) 69 70-99 [place] 301171-08-09 05:10:00 Test Item Value Reference Range Interpretation Comments BUN (test code = BUN) 29 7-22 [place] 301171-08-09 05:10:00 Test Item Value Reference Range Interpretation Comments Creatinine Lvl (test code = Creatinine 5.14 0.50-1.40 Lvl) [place] 301171-08-09 05:10:00 Test Item Value Reference Range Interpretation Comments Sodium Lvl (test code = Sodium Lvl) 134 135-145 [place] 301171-08-09 05:10:00 Test Item Value Reference Range Interpretation Comments Potassium Lvl (test code = Potassium 5.1 3.5-5.1 Lvl) [place] 301171-08-09 05:10:00 Test Item Value Reference Range Interpretation Comments Chloride Lvl (test code = Chloride Lvl) 98 95-109 [place] 301171-08-09 05:10:00 Test Item Value Reference Range Interpretation Comments CO2 (test code = CO2) 29 24-32 [place] 301171-08-09 05:10:00 Test Item Value Reference Range Interpretation Comments Calcium Lvl (test code = Calcium Lvl) 7.6 8.5-10.5 [place] 301171-08-09 05:10:00 Test Item Value Reference Range Interpretation Comments AGAP (test code = AGAP) 12.1 10.0-20.0 [place] 301171-08-09 05:10:00 Test Item Value Reference Range Interpretation Comments eGFR (test code = eGFR) 10 [place] 301171-08-09 05:10:00 Test Item Value Reference Range Interpretation Comments Magnesium Lvl (test code = Magnesium 2.3 1.8-2.4 Lvl) [place] 301171-08-09 05:10:00 Test Item Value Reference Range Interpretation Comments Phosphorus (test code = Phosphorus) 5.0 2.5-4.5 [place] 007271-08-09 05:10:00 Test Item Value Reference Range Interpretation Comments WBC (test code = WBC) 2.7 3.7-10.4 [place] 007271-08-09 05:10:00 Test Item Value Reference Range Interpretation Comments RBC (test code = RBC) 2.80 4.20-5.40 [facility] HospitalQlwngfdZMEOGNVBQB0365-03-98 05:10:00 Test Item Value Reference Range Interpretation Comments Hgb (test code = Hgb) 8.5 12.0-16.0 [place] 007271-08-09 05:10:00 Test Item Value Reference Range Interpretation Comments Hct (test code = Hct) 25.7 36.0-48.0 [facility] HospitalEtaypfsJSDZRBOBIC0683-42-72 05:10:00 Test Item Value Reference Range Interpretation Comments MCV (test code = MCV) 91.7 80.0-98.0 [facility] HospitalCddpkbkMXMIYWLCBN8326-55-97 05:10:00 Test Item Value Reference Range Interpretation Comments MCH (test code = MCH) 30.4 pg 27.0-31.0 [facility] HospitalSfglmbgBIYVNGKLWS6145-35-51 05:10:00 Test Item Value Reference Range Interpretation Comments MCHC (test code = MCHC) 33.1 32.0-36.0 [facility] HospitalXxelstgHUURJPQVBA8392-41-75 05:10:00 Test Item Value Reference Range Interpretation Comments RDW (test code = RDW) 19.2 11.5-14.5 [facility] HospitalFfnbxfiWJGDHXYIEK8390-88-65 05:10:00 Test Item Value Reference Range Interpretation Comments Platelet (test code = Platelet) 72 133-450 [facility] HospitalXeykewlOOLRGVACWN4990-11-01 05:10:00 Test Item Value Reference Range Interpretation Comments MPV (test code = MPV) 9.9 7.4-10.4 [facility] HospitalEqtxfpxAEQZIVVIPI8820-74-66 05:10:00 Test Item Value Reference Range Interpretation Comments Segs (test code = Segs) 72.6 45.0-75.0 [facility] HospitalZcwqrrmWQLKTHKHMH7466-21-88 05:10:00 Test Item Value Reference Range Interpretation Comments Lymphocytes (test code = Lymphocytes) 15.9 20.0-40.0 [place] 007271-08-09 05:10:00 Test Item Value Reference Range Interpretation Comments Monocytes (test code = Monocytes) 7.3 2.0-12.0 [place] 007271-08-09 05:10:00 Test Item Value Reference Range Interpretation Comments Eosinophils (test code = 3.4 See_Comment [A utomated message] The Eosinophils) system which ge nerated this result tra nsmitted reference range : <=4.0. The reference r leo was not used to int erpret this result as normal/abnormal . [facility] HospitalAhaandaWIYCJLGCOF9189-40-71 05:10:00 Test Item Value Reference Range Interpretation Comments Basophils (test code = 0.8 See_Comment [Aut omated message] The Basophils) system which ge nerated this result tra nsmitted reference range : <=1.0. The reference r leo was not used to int erpret this result as normal/abnormal . [facility] HospitalLzddwfbCUSIKOKPOH8673-93-35 05:10:00 Test Item Value Reference Range Interpretation Comments Neutrophils # (test code = Neutrophils 1.9 1.5-8.1 #) [facility] HospitalIyauzgtOQEIGEUFDO6685-92-26 05:10:00 Test Item Value Reference Range Interpretation Comments Lymphocytes # (test code = Lymphocytes 0.4 1.0-5.5 #) [facility] HospitalRatpfyzEAFXICEDSG0509-57-29 05:10:00 Test Item Value Reference Range Interpretation Comments Monocytes # (test code 0.2 See_Comment [Aut omated message] The = Monocytes #) system which generated this result tra nsmitted reference range : <=0.8. The reference r leo was not used to int erpret this result as normal/abnormal . [facility] HospitalWsthfjwNNOQELCHAY2270-05-40 05:10:00 Test Item Value Reference Range Interpretation Comments Eosinophils # (test code 0.1 See_Comment [A utomated message] The = Eosinophils #) system whic h generated this result tra nsmitted reference range : <=0.5. The reference r leo was not used to int erpret this result as normal/abnormal . [facility]ATHY[facility]ID LDAZFAV5385-24-50 05:10:00 Test Item Value Reference Range Interpretation Comments Ca Ion WB (test code = Ca Ion WB) 1.10 1.05-1.25 [facility]RO[facility] NJZUFIP6678-56-40 05:10:00 Test Item Value Reference Range Interpretation Comments Ca Norm WB (test code = Ca Norm WB) 1.06 1.05-1.25 [facility] [id number] 05:10:00 Test Item Value Reference Range Interpretation Comments Glucose Lvl (test code = Glucose Lvl) 69 70-99 [place] 301171-08-09 05:10:00 Test Item Value Reference Range Interpretation Comments BUN (test code = BUN) 29 7-22 [place] 301171-08-09 05:10:00 Test Item Value Reference Range Interpretation Comments Creatinine Lvl (test code = Creatinine 5.14 0.50-1.40 Lvl) [place] 301171-08-09 05:10:00 Test Item Value Reference Range Interpretation Comments Sodium Lvl (test code = Sodium Lvl) 134 135-145 [place] 301171-08-09 05:10:00 Test Item Value Reference Range Interpretation Comments Potassium Lvl (test code = Potassium 5.1 3.5-5.1 Lvl) [place] 301171-08-09 05:10:00 Test Item Value Reference Range Interpretation Comments Chloride Lvl (test code = Chloride Lvl) 98 95-109 [place] 301171-08-09 05:10:00 Test Item Value Reference Range Interpretation Comments CO2 (test code = CO2) 29 24-32 [place] 301171-08-09 05:10:00 Test Item Value Reference Range Interpretation Comments Calcium Lvl (test code = Calcium Lvl) 7.6 8.5-10.5 [place] 301171-08-09 05:10:00 Test Item Value Reference Range Interpretation Comments AGAP (test code = AGAP) 12.1 10.0-20.0 [place] 301171-08-09 05:10:00 Test Item Value Reference Range Interpretation Comments eGFR (test code = eGFR) 10 [place] 301171-08-09 05:10:00 Test Item Value Reference Range Interpretation Comments Magnesium Lvl (test code = Magnesium 2.3 1.8-2.4 Lvl) [place] 301171-08-09 05:10:00 Test Item Value Reference Range Interpretation Comments Phosphorus (test code = Phosphorus) 5.0 2.5-4.5 [place] 007271-08-09 05:10:00 Test Item Value Reference Range Interpretation Comments WBC (test code = WBC) 2.7 3.7-10.4 [place] 007271-08-09 05:10:00 Test Item Value Reference Range Interpretation Comments RBC (test code = RBC) 2.80 4.20-5.40 [facility] HospitalTokdtwuYAZULLZBWM5666-09-36 05:10:00 Test Item Value Reference Range Interpretation Comments Hgb (test code = Hgb) 8.5 12.0-16.0 [place] 007271-08-09 05:10:00 Test Item Value Reference Range Interpretation Comments Hct (test code = Hct) 25.7 36.0-48.0 [facility] HospitalIqzxdxiHIJCOYBDGU9663-01-99 05:10:00 Test Item Value Reference Range Interpretation Comments MCV (test code = MCV) 91.7 80.0-98.0 [facility] HospitalTfqcxutMTIMFVIOQU5107-41-66 05:10:00 Test Item Value Reference Range Interpretation Comments MCH (test code = MCH) 30.4 pg 27.0-31.0 [facility] HospitalTatlytmXKCBHFKUCM2807-09-58 05:10:00 Test Item Value Reference Range Interpretation Comments MCHC (test code = MCHC) 33.1 32.0-36.0 [facility] HospitalWuryhpwLNVMVMUGXG7471-07-42 05:10:00 Test Item Value Reference Range Interpretation Comments RDW (test code = RDW) 19.2 11.5-14.5 [facility] HospitalUntvpbrACOZLHFQYI9845-76-36 05:10:00 Test Item Value Reference Range Interpretation Comments Platelet (test code = Platelet) 72 133-450 [facility] HospitalUhemnuyMESYMGAZGU5260-29-70 05:10:00 Test Item Value Reference Range Interpretation Comments MPV (test code = MPV) 9.9 7.4-10.4 [facility] HospitalGgusyrkFQTTKXYSFZ6906-48-38 05:10:00 Test Item Value Reference Range Interpretation Comments Segs (test code = Segs) 72.6 45.0-75.0 [facility] HospitalFgpzeyvBYBKXYKQMD6725-59-84 05:10:00 Test Item Value Reference Range Interpretation Comments Lymphocytes (test code = Lymphocytes) 15.9 20.0-40.0 [place] 007271-08-09 05:10:00 Test Item Value Reference Range Interpretation Comments Monocytes (test code = Monocytes) 7.3 2.0-12.0 [place] 007271-08-09 05:10:00 Test Item Value Reference Range Interpretation Comments Eosinophils (test code = 3.4 See_Comment [A utomated message] The Eosinophils) system which ge nerated this result tra nsmitted reference range : <=4.0. The reference r leo was not used to int erpret this result as normal/abnormal . [facility] HospitalUeiftrhTUJVCAFFGO8879-51-74 05:10:00 Test Item Value Reference Range Interpretation Comments Basophils (test code = 0.8 See_Comment [Aut omated message] The Basophils) system which ge nerated this result tra nsmitted reference range : <=1.0. The reference r leo was not used to int erpret this result as normal/abnormal . [facility] HospitalNlghpqwVKIUJXYPAC4713-63-40 05:10:00 Test Item Value Reference Range Interpretation Comments Neutrophils # (test code = Neutrophils 1.9 1.5-8.1 #) [facility] HospitalDfesajhFZWPOCFEOO3891-43-16 05:10:00 Test Item Value Reference Range Interpretation Comments Lymphocytes # (test code = Lymphocytes 0.4 1.0-5.5 #) [facility] HospitalZczxpkdYDEOSWCLBG7077-36-76 05:10:00 Test Item Value Reference Range Interpretation Comments Monocytes # (test code 0.2 See_Comment [Aut omated message] The = Monocytes #) system which generated this result tra nsmitted reference range : <=0.8. The reference r leo was not used to int erpret this result as normal/abnormal . [facility] HospitalKjwivuqJOMWPMGXUB1926-00-94 05:10:00 Test Item Value Reference Range Interpretation Comments Eosinophils # (test code 0.1 See_Comment [A utomated message] The = Eosinophils #) system whic h generated this result tra nsmitted reference range : <=0.5. The reference r leo was not used to int erpret this result as normal/abnormal . [facility] BIHKLYG8002-22-89 05:10:00 Test Item Value Reference Range Interpretation Comments Ca Ion WB (test code = Ca Ion WB) 1.10 1.05-1.25 [facility] NEVZNME2185-10-99 05:10:00 Test Item Value Reference Range Interpretation Comments Ca Norm WB (test code = Ca Norm WB) 1.06 1.05-1.25 [facility]aleMOLEC[facility] QQLSDROSBV8800-34-13 18:36:00 Test Item Value Reference Range Interpretation Comments C difficile DNA (test Negative (01/26/21 1:36 code = C difficile DNA) PM) [facility] MLJLOHLWUB5075-89-16 18:36:00 Test Item Value Reference Range Interpretation Comments C difficile DNA (test Negative (01/26/21 1:36 code = C difficile DNA) PM) [facility] GDWTRHXMSF6952-09-97 18:36:00 Test Item Value Reference Range Interpretation Comments C difficile DNA (test Negative (01/26/21 1:36 code = C difficile DNA) PM) [facility] [id number] 18:36:00 Test Item Value Reference Range Interpretation Comments C difficile DNA (test Negative (01/26/21 1:36 code = C difficile DNA) PM) [facility] LIDTWBGUHN8328-09-35 18:36:00 Test Item Value Reference Range Interpretation Comments C difficile DNA (test Negative (01/26/21 1:36 code = C difficile DNA) PM) [facility]2021-08-08 07:33:00 Test Item Value Reference Range Interpretation Comments Ca Ion WB (test code = Ca Ion WB) 1.12 1.05-1.25 [facility]PARATHYROID [id number] 07:33:00 Test Item Value Reference Range Interpretation Comments Ca Norm WB (test code = Ca Norm WB) 1.07 1.05-1.25 [facility]ONAATHYROID [id number] 07:33:00 Test Item Value Reference Range Interpretation Comments Ca Ion WB (test code = Ca Ion WB) 1.12 1.05-1.25 [facility]annPARATHYROID ONIKHMF0647-34-39 07:33:00 Test Item Value Reference Range Interpretation Comments Ca Norm WB (test code = Ca Norm WB) 1.07 1.05-1.25 [facility]PARATHYROID [id number] 07:33:00 Test Item Value Reference Range Interpretation Comments Ca Ion WB (test code = Ca Ion WB) 1.12 1.05-1.25 [facility]annPARATHYROID NHNIDVQ5876-09-80 07:33:00 Test Item Value Reference Range Interpretation Comments Ca Norm WB (test code = Ca Norm WB) 1.07 1.05-1.25 [facility]PARATHYROID [id number] 07:33:00 Test Item Value Reference Range Interpretation Comments Ca Ion WB (test code = Ca Ion WB) 1.12 1.05-1.25 [place] 325711-08-08 07:33:00 Test Item Value Reference Range Interpretation Comments Ca Norm WB (test code = Ca Norm WB) 1.07 1.05-1.25 [place] 325711-08-08 07:33:00 Test Item Value Reference Range Interpretation Comments Ca Ion WB (test code = Ca Ion WB) 1.12 1.05-1.25 [place] 325711-08-08 07:33:00 Test Item Value Reference Range Interpretation Comments Ca Norm WB (test code = Ca Norm WB) 1.07 1.05-1.25 [place] 301171-08-08 07:30:00 Test Item Value Reference Range Interpretation Comments Glucose Lvl (test code = Glucose Lvl) 65 70-99 [place] 301171-08-08 07:30:00 Test Item Value Reference Range Interpretation Comments BUN (test code = BUN) 21 7-22 [place] 301171-08-08 07:30:00 Test Item Value Reference Range Interpretation Comments Creatinine Lvl (test code = Creatinine 4.18 0.50-1.40 Lvl) [place] 301171-08-08 07:30:00 Test Item Value Reference Range Interpretation Comments Sodium Lvl (test code = Sodium Lvl) 136 135-145 [place] 301171-08-08 07:30:00 Test Item Value Reference Range Interpretation Comments Potassium Lvl (test code = Potassium 4.5 3.5-5.1 Lvl) [place] 301171-08-08 07:30:00 Test Item Value Reference Range Interpretation Comments Chloride Lvl (test code = Chloride Lvl) 99 95-109 [place] 301171-08-08 07:30:00 Test Item Value Reference Range Interpretation Comments CO2 (test code = CO2) 31 24-32 [place] 301171-08-08 07:30:00 Test Item Value Reference Range Interpretation Comments AGAP (test code = AGAP) 10.5 10.0-20.0 [place] 301171-08-08 07:30:00 Test Item Value Reference Range Interpretation Comments Calcium Lvl (test code = Calcium Lvl) 7.9 8.5-10.5 [place] 301171-08-08 07:30:00 Test Item Value Reference Range Interpretation Comments eGFR (test code = eGFR) 13 [place] 301171-08-08 07:30:00 Test Item Value Reference Range Interpretation Comments Magnesium Lvl (test code = Magnesium 2.2 1.8-2.4 Lvl) [place] 301171-08-08 07:30:00 Test Item Value Reference Range Interpretation Comments Phosphorus (test code = Phosphorus) 4.4 2.5-4.5 [place] 007271-08-08 07:30:00 Test Item Value Reference Range Interpretation Comments WBC (test code = WBC) 2.3 3.7-10.4 [place] [address]-08-08 07:30:00 Test Item Value Reference Range Interpretation Comments RBC (test code = RBC) 2.88 4.20-5.40 [place] [address]-08-08 07:30:00 Test Item Value Reference Range Interpretation Comments Hgb (test code = Hgb) 8.6 12.0-16.0 [place] [address]-08-08 07:30:00 Test Item Value Reference Range Interpretation Comments Hct (test code = Hct) 26.6 36.0-48.0 [place] [address]-08-08 07:30:00 Test Item Value Reference Range Interpretation Comments MCV (test code = MCV) 92.2 80.0-98.0 [place] [address]-08-08 07:30:00 Test Item Value Reference Range Interpretation Comments MCH (test code = MCH) 29.8 pg 27.0-31.0 [place] 007271-08-08 07:30:00 Test Item Value Reference Range Interpretation Comments MCHC (test code = MCHC) 32.4 32.0-36.0 [place] [address]-08-08 07:30:00 Test Item Value Reference Range Interpretation Comments RDW (test code = RDW) 19.7 11.5-14.5 [place] [address]-08-08 07:30:00 Test Item Value Reference Range Interpretation Comments Platelet (test code = Platelet) 83 133-450 [place] 007271-08-08 07:30:00 Test Item Value Reference Range Interpretation Comments MPV (test code = MPV) 10.2 7.4-10.4 [facility]TpfobqjLNMZYDBOED5751-43-82 07:30:00 Test Item Value Reference Range Interpretation Comments Segs (test code = Segs) 64.0 45.0-75.0 [facility] HospitalNiriykxBGSGZXZDAT8299-77-08 07:30:00 Test Item Value Reference Range Interpretation Comments Lymphocytes (test code = Lymphocytes) 24.1 20.0-40.0 [place] 007271-08-08 07:30:00 Test Item Value Reference Range Interpretation Comments Monocytes (test code = Monocytes) 7.0 2.0-12.0 [facility] HospitalStlavctYHBXWRMCAC3492-66-72 07:30:00 Test Item Value Reference Range Interpretation Comments Eosinophils (test code = 3.7 See_Comment [A utomated message] The Eosinophils) system which ge nerated this result tra nsmitted reference range : <=4.0. The reference r leo was not used to int erpret this result as normal/abnormal . [facility] HospitalCedfpcsIPAXJHFBJT4751-96-17 07:30:00 Test Item Value Reference Range Interpretation Comments Basophils (test code = 1.2 See_Comment [Aut omated message] The Basophils) system which ge nerated this result tra nsmitted reference range : <=1.0. The reference r leo was not used to int erpret this result as normal/abnormal . [facility] HospitalNnrutskCSDMUBDEMK2289-67-81 07:30:00 Test Item Value Reference Range Interpretation Comments Neutrophils # (test code = Neutrophils 1.5 1.5-8.1 #) [facility] HospitalUedhuoeUHLHNSFWKF9768-38-39 07:30:00 Test Item Value Reference Range Interpretation Comments Lymphocytes # (test code = Lymphocytes 0.6 1.0-5.5 #) [facility] HospitalTuckishUKXOCDDWBW3490-43-66 07:30:00 Test Item Value Reference Range Interpretation Comments Monocytes # (test code 0.2 See_Comment [Aut omated message] The = Monocytes #) system which generated this result tra nsmitted reference range : <=0.8. The reference r leo was not used to int erpret this result as normal/abnormal . [place] 007271-08-08 07:30:00 Test Item Value Reference Range Interpretation Comments Eosinophils # (test code 0.1 See_Comment [A utomated message] The = Eosinophils #) system whic h generated this result tra nsmitted reference range : <=0.5. The reference r leo was not used to int erpret this result as normal/abnormal . [place] 301171-08-08 07:30:00 Test Item Value Reference Range Interpretation Comments Glucose Lvl (test code = Glucose Lvl) 65 70-99 [place] 301171-08-08 07:30:00 Test Item Value Reference Range Interpretation Comments BUN (test code = BUN) 21 7-22 [place] 301171-08-08 07:30:00 Test Item Value Reference Range Interpretation Comments Creatinine Lvl (test code = Creatinine 4.18 0.50-1.40 Lvl) [place] 301171-08-08 07:30:00 Test Item Value Reference Range Interpretation Comments Sodium Lvl (test code = Sodium Lvl) 136 135-145 [place] 301171-08-08 07:30:00 Test Item Value Reference Range Interpretation Comments Potassium Lvl (test code = Potassium 4.5 3.5-5.1 Lvl) [place] 301171-08-08 07:30:00 Test Item Value Reference Range Interpretation Comments Chloride Lvl (test code = Chloride Lvl) 99 95-109 [place] 301171-08-08 07:30:00 Test Item Value Reference Range Interpretation Comments CO2 (test code = CO2) 31 24-32 [place] 301171-08-08 07:30:00 Test Item Value Reference Range Interpretation Comments AGAP (test code = AGAP) 10.5 10.0-20.0 [place] 301171-08-08 07:30:00 Test Item Value Reference Range Interpretation Comments Calcium Lvl (test code = Calcium Lvl) 7.9 8.5-10.5 [place] 301171-08-08 07:30:00 Test Item Value Reference Range Interpretation Comments eGFR (test code = eGFR) 13 [place] 301171-08-08 07:30:00 Test Item Value Reference Range Interpretation Comments Magnesium Lvl (test code = Magnesium 2.2 1.8-2.4 Lvl) [facility]2021-08-08 07:30:00 Test Item Value Reference Range Interpretation Comments Phosphorus (test code = Phosphorus) 4.4 2.5-4.5 [facility] HospitalKfultdvRJSLHOELCB5372-34-24 07:30:00 Test Item Value Reference Range Interpretation Comments WBC (test code = WBC) 2.3 3.7-10.4 [facility] HospitalPnnjgaaTYQYKSTTRM4233-94-32 07:30:00 Test Item Value Reference Range Interpretation Comments RBC (test code = RBC) 2.88 4.20-5.40 [facility] HospitalLcwzxvtSNWREWYNEY2538-05-34 07:30:00 Test Item Value Reference Range Interpretation Comments Hgb (test code = Hgb) 8.6 12.0-16.0 [facility] HospitalWvwymndHYJSFGAGDC7486-46-07 07:30:00 Test Item Value Reference Range Interpretation Comments Hct (test code = Hct) 26.6 36.0-48.0 [facility] HospitalIsxkoinKXFETVZSGO9802-57-77 07:30:00 Test Item Value Reference Range Interpretation Comments MCV (test code = MCV) 92.2 80.0-98.0 [facility] HospitalCxidxquYUEWSQXKTD5405-24-65 07:30:00 Test Item Value Reference Range Interpretation Comments MCH (test code = MCH) 29.8 pg 27.0-31.0 [facility] HospitalPkzefzeFQYBYCOJVK1359-95-72 07:30:00 Test Item Value Reference Range Interpretation Comments MCHC (test code = MCHC) 32.4 32.0-36.0 [facility] HospitalLshmaazCUXVJGCWJA8747-41-04 07:30:00 Test Item Value Reference Range Interpretation Comments RDW (test code = RDW) 19.7 11.5-14.5 [place] 007271-08-08 07:30:00 Test Item Value Reference Range Interpretation Comments Platelet (test code = Platelet) 83 133-450 [facility] HospitalPqpaaahHRIDNPBLZV7076-47-58 07:30:00 Test Item Value Reference Range Interpretation Comments MPV (test code = MPV) 10.2 7.4-10.4 [facility] HospitalEjausqrCVABECUUMA3419-20-51 07:30:00 Test Item Value Reference Range Interpretation Comments Segs (test code = Segs) 64.0 45.0-75.0 [place] 007271-08-08 07:30:00 Test Item Value Reference Range Interpretation Comments Lymphocytes (test code = Lymphocytes) 24.1 20.0-40.0 [place] 007271-08-08 07:30:00 Test Item Value Reference Range Interpretation Comments Monocytes (test code = Monocytes) 7.0 2.0-12.0 [place] 007271-08-08 07:30:00 Test Item Value Reference Range Interpretation Comments Eosinophils (test code = 3.7 See_Comment [A utomated message] The Eosinophils) system which ge nerated this result tra nsmitted reference range : <=4.0. The reference r leo was not used to int erpret this result as normal/abnormal . [place] 007271-08-08 07:30:00 Test Item Value Reference Range Interpretation Comments Basophils (test code = 1.2 See_Comment [Aut omated message] The Basophils) system which ge nerated this result tra nsmitted reference range : <=1.0. The reference r leo was not used to int erpret this result as normal/abnormal . [facility] HospitalSphhwmwUTSAJEECDY9659-59-46 07:30:00 Test Item Value Reference Range Interpretation Comments Neutrophils # (test code = Neutrophils 1.5 1.5-8.1 #) [facility] HospitalJaugtzfGMGNZPBTZS4557-17-74 07:30:00 Test Item Value Reference Range Interpretation Comments Lymphocytes # (test code = Lymphocytes 0.6 1.0-5.5 #) [place] 007271-08-08 07:30:00 Test Item Value Reference Range Interpretation Comments Monocytes # (test code 0.2 See_Comment [Aut omated message] The = Monocytes #) system which generated this result tra nsmitted reference range : <=0.8. The reference r leo was not used to int erpret this result as normal/abnormal . [place] 007271-08-08 07:30:00 Test Item Value Reference Range Interpretation [...] (test code = Glucose Lvl) 65 70-99 [place] 301171-08-08 07:30:00 Test Item Value Reference Range Interpretation Comments BUN (test code = BUN) 21 7-22 [place] 301171-08-08 07:30:00 Test Item Value Reference Range Interpretation Comments Creatinine Lvl (test code = Creatinine 4.18 0.50-1.40 Lvl) [place] 301171-08-08 07:30:00 Test Item Value Reference Range Interpretation Comments Sodium Lvl (test code = Sodium Lvl) 136 135-145 [place] 301171-08-08 07:30:00 Test Item Value Reference Range Interpretation Comments Potassium Lvl (test code = Potassium 4.5 3.5-5.1 Lvl) [place] 301171-08-08 07:30:00 Test Item Value Reference Range Interpretation Comments Chloride Lvl (test code = Chloride Lvl) 99 95-109 [place] 301171-08-08 07:30:00 Test Item Value Reference Range Interpretation Comments CO2 (test code = CO2) 31 24-32 [place] 301171-08-08 07:30:00 Test Item Value Reference Range Interpretation Comments AGAP (test code = AGAP) 10.5 10.0-20.0 [place] 301171-08-08 07:30:00 Test Item Value Reference Range Interpretation Comments Calcium Lvl (test code = Calcium Lvl) 7.9 8.5-10.5 [place] 301171-08-08 07:30:00 Test Item Value Reference Range Interpretation Comments eGFR (test code = eGFR) 13 [place] 301171-08-08 07:30:00 Test Item Value Reference Range Interpretation Comments Magnesium Lvl (test code = Magnesium 2.2 1.8-2.4 Lvl) [place] 301171-08-08 07:30:00 Test Item Value Reference Range Interpretation Comments Phosphorus (test code = Phosphorus) 4.4 2.5-4.5 [place] 007271-08-08 07:30:00 Test Item Value Reference Range Interpretation Comments WBC (test code = WBC) 2.3 3.7-10.4 [place] 007271-08-08 07:30:00 Test Item Value Reference Range Interpretation Comments RBC (test code = RBC) 2.88 4.20-5.40 [place] 007271-08-08 07:30:00 Test Item Value Reference Range Interpretation Comments Hgb (test code = Hgb) 8.6 12.0-16.0 [facility] HospitalQghydrjEWJJZVRPCU5149-46-01 07:30:00 Test Item Value Reference Range Interpretation Comments Hct (test code = Hct) 26.6 36.0-48.0 [facility] HospitalJvaqdmuMZNABKPZXK4648-73-89 07:30:00 Test Item Value Reference Range Interpretation Comments MCV (test code = MCV) 92.2 80.0-98.0 [facility] HospitalWxlpcfsPZGCHLCDEB5474-42-88 07:30:00 Test Item Value Reference Range Interpretation Comments MCH (test code = MCH) 29.8 pg 27.0-31.0 [facility] HospitalZdxogcxRJTHZRKCDH4495-00-80 07:30:00 Test Item Value Reference Range Interpretation Comments MCHC (test code = MCHC) 32.4 32.0-36.0 [facility] HospitalTmpsjxuKWIIERPPFR2590-09-50 07:30:00 Test Item Value Reference Range Interpretation Comments RDW (test code = RDW) 19.7 11.5-14.5 [facility] HospitalFrqvinzMLTYHTCNLT3767-38-63 07:30:00 Test Item Value Reference Range Interpretation Comments Platelet (test code = Platelet) 83 133-450 [facility] HospitalPnkvpkgSEYXWFFIHI7540-94-27 07:30:00 Test Item Value Reference Range Interpretation Comments MPV (test code = MPV) 10.2 7.4-10.4 [facility] HospitalKhtpidwATJMFDKUNB0521-06-46 07:30:00 Test Item Value Reference Range Interpretation Comments Segs (test code = Segs) 64.0 45.0-75.0 [place] 007271-08-08 07:30:00 Test Item Value Reference Range Interpretation Comments Lymphocytes (test code = Lymphocytes) 24.1 20.0-40.0 [place] 007271-08-08 07:30:00 Test Item Value Reference Range Interpretation Comments Monocytes (test code = Monocytes) 7.0 2.0-12.0 [place] 007271-08-08 07:30:00 Test Item Value Reference Range Interpretation Comments Eosinophils (test code = 3.7 See_Comment [A utomated message] The Eosinophils) system which ge nerated this result tra nsmitted reference range : <=4.0. The reference r leo was not used to int erpret this result as normal/abnormal . [place] [address]-08-08 07:30:00 Test Item Value Reference Range Interpretation Comments Basophils (test code = 1.2 See_Comment [Aut omated message] The Basophils) system which ge nerated this result tra nsmitted reference range : <=1.0. The reference r leo was not used to int erpret this result as normal/abnormal . [place] 007271-08-08 07:30:00 Test Item Value Reference Range Interpretation Comments Neutrophils # (test code = Neutrophils 1.5 1.5-8.1 #) [place] 007271-08-08 07:30:00 Test Item Value Reference Range Interpretation Comments Lymphocytes # (test code = Lymphocytes 0.6 1.0-5.5 #) [place] 007271-08-08 07:30:00 Test Item Value Reference Range Interpretation Comments Monocytes # (test code 0.2 See_Comment [Aut omated message] The = Monocytes #) system which generated this result tra nsmitted reference range : <=0.8. The reference r leo was not used to int erpret this result as normal/abnormal . [place] 007271-08-08 07:30:00 Test Item Value Reference Range Interpretation Comments Eosinophils # (test code 0.1 See_Comment [A utomated message] The = Eosinophils #) system whic h generated this result tra nsmitted reference range : <=0.5. The reference r leo was not used to int erpret this result as normal/abnormal . [facility] [id number] 07:30:00 Test Item Value Reference Range Interpretation Comments Glucose Lvl (test code = Glucose Lvl) 65 70-99 [facility]Reply [id number] 07:30:00 Test Item Value Reference Range Interpretation Comments BUN (test code = BUN) 21 7-22 [facility] [id number] 07:30:00 Test Item Value Reference Range Interpretation Comments Creatinine Lvl (test code = Creatinine 4.18 0.50-1.40 Lvl) [place] 301171-08-08 07:30:00 Test Item Value Reference Range Interpretation Comments Sodium Lvl (test code = Sodium Lvl) 136 135-145 [place] 301171-08-08 07:30:00 Test Item Value Reference Range Interpretation Comments Potassium Lvl (test code = Potassium 4.5 3.5-5.1 Lvl) [place] 301171-08-08 07:30:00 Test Item Value Reference Range Interpretation Comments Chloride Lvl (test code = Chloride Lvl) 99 95-109 [place] 301171-08-08 07:30:00 Test Item Value Reference Range Interpretation Comments CO2 (test code = CO2) 31 24-32 [place] 301171-08-08 07:30:00 Test Item Value Reference Range Interpretation Comments AGAP (test code = AGAP) 10.5 10.0-20.0 [place] 301171-08-08 07:30:00 Test Item Value Reference Range Interpretation Comments Calcium Lvl (test code = Calcium Lvl) 7.9 8.5-10.5 [place] 301171-08-08 07:30:00 Test Item Value Reference Range Interpretation Comments eGFR (test code = eGFR) 13 [place] 301171-08-08 07:30:00 Test Item Value Reference Range Interpretation Comments Magnesium Lvl (test code = Magnesium 2.2 1.8-2.4 Lvl) [place] 301171-08-08 07:30:00 Test Item Value Reference Range Interpretation Comments Phosphorus (test code = Phosphorus) 4.4 2.5-4.5 [place] 007271-08-08 07:30:00 Test Item Value Reference Range Interpretation Comments WBC (test code = WBC) 2.3 3.7-10.4 [place] 007271-08-08 07:30:00 Test Item Value Reference Range Interpretation Comments RBC (test code = RBC) 2.88 4.20-5.40 [place] 007271-08-08 07:30:00 Test Item Value Reference Range Interpretation Comments Hgb (test code = Hgb) 8.6 12.0-16.0 [place] 007271-08-08 07:30:00 Test Item Value Reference Range Interpretation Comments Hct (test code = Hct) 26.6 36.0-48.0 [facility] HospitalBktlsvlEDMEVYLJYG1953-78-65 07:30:00 Test Item Value Reference Range Interpretation Comments MCV (test code = MCV) 92.2 80.0-98.0 [place] 007271-08-08 07:30:00 Test Item Value Reference Range Interpretation Comments MCH (test code = MCH) 29.8 pg 27.0-31.0 [place] 007271-08-08 07:30:00 Test Item Value Reference Range Interpretation Comments MCHC (test code = MCHC) 32.4 32.0-36.0 [facility] HospitalJrbtybfYFYLVQLEDF3974-88-82 07:30:00 Test Item Value Reference Range Interpretation Comments RDW (test code = RDW) 19.7 11.5-14.5 [place] 007271-08-08 07:30:00 Test Item Value Reference Range Interpretation Comments Platelet (test code = Platelet) 83 133-450 [facility] HospitalMcornemOUAJJRFUSE9223-05-03 07:30:00 Test Item Value Reference Range Interpretation Comments MPV (test code = MPV) 10.2 7.4-10.4 [facility] HospitalHzjjpgsPCQGKQNBEL9576-47-93 07:30:00 Test Item Value Reference Range Interpretation Comments Segs (test code = Segs) 64.0 45.0-75.0 [facility] HospitalUncriohTWTHMSJRQR1099-73-96 07:30:00 Test Item Value Reference Range Interpretation Comments Lymphocytes (test code = Lymphocytes) 24.1 20.0-40.0 [place] 007271-08-08 07:30:00 Test Item Value Reference Range Interpretation Comments Monocytes (test code = Monocytes) 7.0 2.0-12.0 [facility] HospitalBzmukdxEHNGPRJRXH2187-31-47 07:30:00 Test Item Value Reference Range Interpretation Comments Eosinophils (test code = 3.7 See_Comment [A utomated message] The Eosinophils) system which ge nerated this result tra nsmitted reference range : <=4.0. The reference r leo was not used to int erpret this result as normal/abnormal . [facility] HospitalEkpuuodGWCCMRVJNU7372-55-18 07:30:00 Test Item Value Reference Range Interpretation Comments Basophils (test code = 1.2 See_Comment [Aut omated message] The Basophils) system which ge nerated this result tra nsmitted reference range : <=1.0. The reference r leo was not used to int erpret this result as normal/abnormal . [place] 007271-08-08 07:30:00 Test Item Value Reference Range Interpretation Comments Neutrophils # (test code = Neutrophils 1.5 1.5-8.1 #) [facility] HospitalJtdhnkzZPBOHNHIQF4958-15-63 07:30:00 Test Item Value Reference Range Interpretation Comments Lymphocytes # (test code = Lymphocytes 0.6 1.0-5.5 #) [place] 007271-08-08 07:30:00 Test Item Value Reference Range Interpretation Comments Monocytes # (test code 0.2 See_Comment [Aut omated message] The = Monocytes #) system which generated this result tra nsmitted reference range : <=0.8. The reference r leo was not used to int erpret this result as normal/abnormal . [place] 007271-08-08 07:30:00 Test Item Value Reference Range Interpretation [...] (test code = Glucose Lvl) 65 70-99 [place] 301171-08-08 07:30:00 Test Item Value Reference Range Interpretation Comments BUN (test code = BUN) 21 7-22 [place] [address]-08-08 07:30:00 Test Item Value Reference Range Interpretation Comments Creatinine Lvl (test code = Creatinine 4.18 0.50-1.40 Lvl) [place] 301171-08-08 07:30:00 Test Item Value Reference Range Interpretation Comments Sodium Lvl (test code = Sodium Lvl) 136 135-145 [place] 301171-08-08 07:30:00 Test Item Value Reference Range Interpretation Comments Potassium Lvl (test code = Potassium 4.5 3.5-5.1 Lvl) [place] 301171-08-08 07:30:00 Test Item Value Reference Range Interpretation Comments Chloride Lvl (test code = Chloride Lvl) 99 95-109 [place] 301171-08-08 07:30:00 Test Item Value Reference Range Interpretation Comments CO2 (test code = CO2) 31 24-32 [place] 301171-08-08 07:30:00 Test Item Value Reference Range Interpretation Comments AGAP (test code = AGAP) 10.5 10.0-20.0 [place] 301171-08-08 07:30:00 Test Item Value Reference Range Interpretation Comments Calcium Lvl (test code = Calcium Lvl) 7.9 8.5-10.5 [place] 301171-08-08 07:30:00 Test Item Value Reference Range Interpretation Comments eGFR (test code = eGFR) 13 [place] 301171-08-08 07:30:00 Test Item Value Reference Range Interpretation Comments Magnesium Lvl (test code = Magnesium 2.2 1.8-2.4 Lvl) [place] 301171-08-08 07:30:00 Test Item Value Reference Range Interpretation Comments Phosphorus (test code = Phosphorus) 4.4 2.5-4.5 [place] 007271-08-08 07:30:00 Test Item Value Reference Range Interpretation Comments WBC (test code = WBC) 2.3 3.7-10.4 [place] 007271-08-08 07:30:00 Test Item Value Reference Range Interpretation Comments RBC (test code = RBC) 2.88 4.20-5.40 [place] [address]-08-08 07:30:00 Test Item Value Reference Range Interpretation Comments Hgb (test code = Hgb) 8.6 12.0-16.0 [place] [address]-08-08 07:30:00 Test Item Value Reference Range Interpretation Comments Hct (test code = Hct) 26.6 36.0-48.0 [place] 007271-08-08 07:30:00 Test Item Value Reference Range Interpretation Comments MCV (test code = MCV) 92.2 80.0-98.0 [place] [address]-08-08 07:30:00 Test Item Value Reference Range Interpretation Comments MCH (test code = MCH) 29.8 pg 27.0-31.0 [facility] HospitalIsjoblcCPATOSXXQS0493-20-15 07:30:00 Test Item Value Reference Range Interpretation Comments MCHC (test code = MCHC) 32.4 32.0-36.0 [facility] HospitalCljtlzcXEVQIRGUYK6482-91-80 07:30:00 Test Item Value Reference Range Interpretation Comments RDW (test code = RDW) 19.7 11.5-14.5 [place] 007271-08-08 07:30:00 Test Item Value Reference Range Interpretation Comments Platelet (test code = Platelet) 83 133-450 [facility] HospitalSdjqdzcFJFZIANVJY8180-09-75 07:30:00 Test Item Value Reference Range Interpretation Comments MPV (test code = MPV) 10.2 7.4-10.4 [place] 007271-08-08 07:30:00 Test Item Value Reference Range Interpretation Comments Segs (test code = Segs) 64.0 45.0-75.0 [place] 007271-08-08 07:30:00 Test Item Value Reference Range Interpretation Comments Lymphocytes (test code = Lymphocytes) 24.1 20.0-40.0 [facility] HospitalOgvahmvPQUNYVTKBE8261-13-97 07:30:00 Test Item Value Reference Range Interpretation Comments Monocytes (test code = Monocytes) 7.0 2.0-12.0 [facility] HospitalJwqjmpsGXDGZSBZQY8629-85-74 07:30:00 Test Item Value Reference Range Interpretation Comments Eosinophils (test code = 3.7 See_Comment [A utomated message] The Eosinophils) system which ge nerated this result tra nsmitted reference range : <=4.0. The reference r leo was not used to int erpret this result as normal/abnormal . [place] 007271-08-08 07:30:00 Test Item Value Reference Range Interpretation Comments Basophils (test code = 1.2 See_Comment [Aut omated message] The Basophils) system which ge nerated this result tra nsmitted reference range : <=1.0. The reference r leo was not used to int erpret this result as normal/abnormal . [place] 007271-08-08 07:30:00 Test Item Value Reference Range Interpretation Comments Neutrophils # (test code = Neutrophils 1.5 1.5-8.1 #) [place] [address]-08-08 07:30:00 Test Item Value Reference Range Interpretation Comments Lymphocytes # (test code = Lymphocytes 0.6 1.0-5.5 #) [place] 007271-08-08 07:30:00 Test Item Value Reference Range Interpretation Comments Monocytes # (test code 0.2 See_Comment [Aut omated message] The = Monocytes #) system which generated this result tra nsmitted reference range : <=0.8. The reference r leo was not used to int erpret this result as normal/abnormal . [place] [address]-08-08 07:30:00 Test Item Value Reference Range Interpretation Comments Eosinophils # (test code 0.1 See_Comment [A utomated message] The = Eosinophils #) system whic h generated this result tra nsmitted reference range : <=0.5. The reference r leo was not used to int erpret this result as normal/abnormal . [place] 301171-08-07 09:32:00 Test Item Value Reference Range Interpretation Comments Glucose Lvl (test code = Glucose Lvl) 59 70-99 [place] 301171-08-07 09:32:00 Test Item Value Reference Range Interpretation Comments BUN (test code = BUN) 11 7-22 [place] 301171-08-07 09:32:00 Test Item Value Reference Range Interpretation Comments Creatinine Lvl (test code = Creatinine 2.75 0.50-1.40 Lvl) [place] 301171-08-07 09:32:00 Test Item Value Reference Range Interpretation Comments Sodium Lvl (test code = Sodium Lvl) 138 135-145 [place] 301171-08-07 09:32:00 Test Item Value Reference Range Interpretation Comments Potassium Lvl (test code = Potassium 4.1 3.5-5.1 Lvl) [place] 301171-08-07 09:32:00 Test Item Value Reference Range Interpretation Comments Chloride Lvl (test code = Chloride Lvl) 104 95-109 [place] 301171-08-07 09:32:00 Test Item Value Reference Range Interpretation Comments CO2 (test code = CO2) 29 24-32 [place] 301171-08-07 09:32:00 Test Item Value Reference Range Interpretation Comments Calcium Lvl (test code = Calcium Lvl) 8.3 8.5-10.5 [place] 301171-08-07 09:32:00 Test Item Value Reference Range Interpretation Comments AGAP (test code = AGAP) 9.1 10.0-20.0 [place] [address]-08-07 09:32:00 Test Item Value Reference Range Interpretation Comments eGFR (test code = eGFR) 21 [place] 301171-08-07 09:32:00 Test Item Value Reference Range Interpretation Comments Magnesium Lvl (test code = Magnesium 2.2 1.8-2.4 Lvl) [place] 301171-08-07 09:32:00 Test Item Value Reference Range Interpretation Comments Phosphorus (test code = Phosphorus) 3.9 2.5-4.5 [place] 007271-08-07 09:32:00 Test Item Value Reference Range Interpretation Comments WBC (test code = WBC) 2.3 3.7-10.4 [place] [address]-08-07 09:32:00 Test Item Value Reference Range Interpretation Comments RBC (test code = RBC) 2.78 4.20-5.40 [place] [address]-08-07 09:32:00 Test Item Value Reference Range Interpretation Comments Hgb (test code = Hgb) 8.4 12.0-16.0 [place] [address]-08-07 09:32:00 Test Item Value Reference Range Interpretation Comments Hct (test code = Hct) 25.2 36.0-48.0 [place] 007271-08-07 09:32:00 Test Item Value Reference Range Interpretation Comments MCV (test code = MCV) 90.5 80.0-98.0 [place] [address]-08-07 09:32:00 Test Item Value Reference Range Interpretation Comments MCH (test code = MCH) 30.4 pg 27.0-31.0 [place] [address]-08-07 09:32:00 Test Item Value Reference Range Interpretation Comments MCHC (test code = MCHC) 33.5 32.0-36.0 [place] [address]-08-07 09:32:00 Test Item Value Reference Range Interpretation Comments RDW (test code = RDW) 19.0 11.5-14.5 [place] 007271-08-07 09:32:00 Test Item Value Reference Range Interpretation Comments Platelet (test code = Platelet) 87 133-450 [place] 007271-08-07 09:32:00 Test Item Value Reference Range Interpretation Comments MPV (test code = MPV) 10.0 7.4-10.4 [place] 301171-08-07 09:32:00 Test Item Value Reference Range Interpretation Comments Glucose Lvl (test code = Glucose Lvl) 59 70-99 [place] 301171-08-07 09:32:00 Test Item Value Reference Range Interpretation Comments BUN (test code = BUN) 11 7-22 [place] 301171-08-07 09:32:00 Test Item Value Reference Range Interpretation Comments Creatinine Lvl (test code = Creatinine 2.75 0.50-1.40 Lvl) [place] 301171-08-07 09:32:00 Test Item Value Reference Range Interpretation Comments Sodium Lvl (test code = Sodium Lvl) 138 135-145 [place] 301171-08-07 09:32:00 Test Item Value Reference Range Interpretation Comments Potassium Lvl (test code = Potassium 4.1 3.5-5.1 Lvl) [place] 301171-08-07 09:32:00 Test Item Value Reference Range Interpretation Comments Chloride Lvl (test code = Chloride Lvl) 104 95-109 [place] 301171-08-07 09:32:00 Test Item Value Reference Range Interpretation Comments CO2 (test code = CO2) 29 24-32 [place] 301171-08-07 09:32:00 Test Item Value Reference Range Interpretation Comments Calcium Lvl (test code = Calcium Lvl) 8.3 8.5-10.5 [place] 301171-08-07 09:32:00 Test Item Value Reference Range Interpretation Comments AGAP (test code = AGAP) 9.1 10.0-20.0 [place] 301171-08-07 09:32:00 Test Item Value Reference Range Interpretation Comments eGFR (test code = eGFR) 21 [place] 301171-08-07 09:32:00 Test Item Value Reference Range Interpretation Comments Magnesium Lvl (test code = Magnesium 2.2 1.8-2.4 Lvl) [facility]2021-08-07 09:32:00 Test Item Value Reference Range Interpretation Comments Phosphorus (test code = Phosphorus) 3.9 2.5-4.5 [place] 007271-08-07 09:32:00 Test Item Value Reference Range Interpretation Comments WBC (test code = WBC) 2.3 3.7-10.4 [place] 007271-08-07 09:32:00 Test Item Value Reference Range Interpretation Comments RBC (test code = RBC) 2.78 4.20-5.40 [place] 007271-08-07 09:32:00 Test Item Value Reference Range Interpretation Comments Hgb (test code = Hgb) 8.4 12.0-16.0 [place] 007271-08-07 09:32:00 Test Item Value Reference Range Interpretation Comments Hct (test code = Hct) 25.2 36.0-48.0 [place] 007271-08-07 09:32:00 Test Item Value Reference Range Interpretation Comments MCV (test code = MCV) 90.5 80.0-98.0 [place] 007271-08-07 09:32:00 Test Item Value Reference Range Interpretation Comments MCH (test code = MCH) 30.4 pg 27.0-31.0 [place] 007271-08-07 09:32:00 Test Item Value Reference Range Interpretation Comments MCHC (test code = MCHC) 33.5 32.0-36.0 [place] 007271-08-07 09:32:00 Test Item Value Reference Range Interpretation Comments RDW (test code = RDW) 19.0 11.5-14.5 [place] 007271-08-07 09:32:00 Test Item Value Reference Range Interpretation Comments Platelet (test code = Platelet) 87 133-450 [place] 007271-08-07 09:32:00 Test Item Value Reference Range Interpretation Comments MPV (test code = MPV) 10.0 7.4-10.4 [place] 301171-08-07 09:32:00 Test Item Value Reference Range Interpretation Comments Glucose Lvl (test code = Glucose Lvl) 59 70-99 [place] 301171-08-07 09:32:00 Test Item Value Reference Range Interpretation Comments BUN (test code = BUN) 11 7-22 [place] 301171-08-07 09:32:00 Test Item Value Reference Range Interpretation Comments Creatinine Lvl (test code = Creatinine 2.75 0.50-1.40 Lvl) [place] 301171-08-07 09:32:00 Test Item Value Reference Range Interpretation Comments Sodium Lvl (test code = Sodium Lvl) 138 135-145 [place] 301171-08-07 09:32:00 Test Item Value Reference Range Interpretation Comments Potassium Lvl (test code = Potassium 4.1 3.5-5.1 Lvl) [place] 301171-08-07 09:32:00 Test Item Value Reference Range Interpretation Comments Chloride Lvl (test code = Chloride Lvl) 104 95-109 [place] 301171-08-07 09:32:00 Test Item Value Reference Range Interpretation Comments CO2 (test code = CO2) 29 24-32 [place] 301171-08-07 09:32:00 Test Item Value Reference Range Interpretation Comments Calcium Lvl (test code = Calcium Lvl) 8.3 8.5-10.5 [place] 301171-08-07 09:32:00 Test Item Value Reference Range Interpretation Comments AGAP (test code = AGAP) 9.1 10.0-20.0 [place] 301171-08-07 09:32:00 Test Item Value Reference Range Interpretation Comments eGFR (test code = eGFR) 21 [place] 301171-08-07 09:32:00 Test Item Value Reference Range Interpretation Comments Magnesium Lvl (test code = Magnesium 2.2 1.8-2.4 Lvl) [place] 301171-08-07 09:32:00 Test Item Value Reference Range Interpretation Comments Phosphorus (test code = Phosphorus) 3.9 2.5-4.5 [place] 007271-08-07 09:32:00 Test Item Value Reference Range Interpretation Comments WBC (test code = WBC) 2.3 3.7-10.4 [place] 007271-08-07 09:32:00 Test Item Value Reference Range Interpretation Comments RBC (test code = RBC) 2.78 4.20-5.40 [place] 007271-08-07 09:32:00 Test Item Value Reference Range Interpretation Comments Hgb (test code = Hgb) 8.4 12.0-16.0 [place] 007271-08-07 09:32:00 Test Item Value Reference Range Interpretation Comments Hct (test code = Hct) 25.2 36.0-48.0 [place] 007271-08-07 09:32:00 Test Item Value Reference Range Interpretation Comments MCV (test code = MCV) 90.5 80.0-98.0 [place] 007271-08-07 09:32:00 Test Item Value Reference Range Interpretation Comments MCH (test code = MCH) 30.4 pg 27.0-31.0 [place] 007271-08-07 09:32:00 Test Item Value Reference Range Interpretation Comments MCHC (test code = MCHC) 33.5 32.0-36.0 [place] 007271-08-07 09:32:00 Test Item Value Reference Range Interpretation Comments RDW (test code = RDW) 19.0 11.5-14.5 [place] 007271-08-07 09:32:00 Test Item Value Reference Range Interpretation Comments Platelet (test code = Platelet) 87 133-450 [place] 007271-08-07 09:32:00 Test Item Value Reference Range Interpretation Comments MPV (test code = MPV) 10.0 7.4-10.4 [place] 301171-08-07 09:32:00 Test Item Value Reference Range Interpretation Comments Glucose Lvl (test code = Glucose Lvl) 59 70-99 [place] 301171-08-07 09:32:00 Test Item Value Reference Range Interpretation Comments BUN (test code = BUN) 11 7-22 [place] 301171-08-07 09:32:00 Test Item Value Reference Range Interpretation Comments Creatinine Lvl (test code = Creatinine 2.75 0.50-1.40 Lvl) [place] 301171-08-07 09:32:00 Test Item Value Reference Range Interpretation Comments Sodium Lvl (test code = Sodium Lvl) 138 135-145 [place] 301171-08-07 09:32:00 Test Item Value Reference Range Interpretation Comments Potassium Lvl (test code = Potassium 4.1 3.5-5.1 Lvl) [place] 301171-08-07 09:32:00 Test Item Value Reference Range Interpretation Comments Chloride Lvl (test code = Chloride Lvl) 104 95-109 [place] 301171-08-07 09:32:00 Test Item Value Reference Range Interpretation Comments CO2 (test code = CO2) 29 24-32 [place] 301171-08-07 09:32:00 Test Item Value Reference Range Interpretation Comments Calcium Lvl (test code = Calcium Lvl) 8.3 8.5-10.5 [place] 301171-08-07 09:32:00 Test Item Value Reference Range Interpretation Comments AGAP (test code = AGAP) 9.1 10.0-20.0 [place] 301171-08-07 09:32:00 Test Item Value Reference Range Interpretation Comments eGFR (test code = eGFR) 21 [place] 301171-08-07 09:32:00 Test Item Value Reference Range Interpretation Comments Magnesium Lvl (test code = Magnesium 2.2 1.8-2.4 Lvl) [place] 301171-08-07 09:32:00 Test Item Value Reference Range Interpretation Comments Phosphorus (test code = Phosphorus) 3.9 2.5-4.5 [place] 007271-08-07 09:32:00 Test Item Value Reference Range Interpretation Comments WBC (test code = WBC) 2.3 3.7-10.4 [place] 007271-08-07 09:32:00 Test Item Value Reference Range Interpretation Comments RBC (test code = RBC) 2.78 4.20-5.40 [place] [address]-08-07 09:32:00 Test Item Value Reference Range Interpretation Comments Hgb (test code = Hgb) 8.4 12.0-16.0 [place] [address]-08-07 09:32:00 Test Item Value Reference Range Interpretation Comments Hct (test code = Hct) 25.2 36.0-48.0 [place] [address]-08-07 09:32:00 Test Item Value Reference Range Interpretation Comments MCV (test code = MCV) 90.5 80.0-98.0 [place] [address]-08-07 09:32:00 Test Item Value Reference Range Interpretation Comments MCH (test code = MCH) 30.4 pg 27.0-31.0 [place] 007271-08-07 09:32:00 Test Item Value Reference Range Interpretation Comments MCHC (test code = MCHC) 33.5 32.0-36.0 [place] 007271-08-07 09:32:00 Test Item Value Reference Range Interpretation Comments RDW (test code = RDW) 19.0 11.5-14.5 [place] [address]-08-07 09:32:00 Test Item Value Reference Range Interpretation Comments Platelet (test code = Platelet) 87 133-450 [place] 007271-08-07 09:32:00 Test Item Value Reference Range Interpretation Comments MPV (test code = MPV) 10.0 7.4-10.4 [place] 301171-08-07 09:32:00 Test Item Value Reference Range Interpretation Comments Glucose Lvl (test code = Glucose Lvl) 59 70-99 [place] 301171-08-07 09:32:00 Test Item Value Reference Range Interpretation Comments BUN (test code = BUN) 11 7-22 [place] 301171-08-07 09:32:00 Test Item Value Reference Range Interpretation Comments Creatinine Lvl (test code = Creatinine 2.75 0.50-1.40 Lvl) [place] 301171-08-07 09:32:00 Test Item Value Reference Range Interpretation Comments Sodium Lvl (test code = Sodium Lvl) 138 135-145 [place] 301171-08-07 09:32:00 Test Item Value Reference Range Interpretation Comments Potassium Lvl (test code = Potassium 4.1 3.5-5.1 Lvl) [place] 301171-08-07 09:32:00 Test Item Value Reference Range Interpretation Comments Chloride Lvl (test code = Chloride Lvl) 104 95-109 [place] [address]-08-07 09:32:00 Test Item Value Reference Range Interpretation Comments CO2 (test code = CO2) 29 24-32 [place] 301171-08-07 09:32:00 Test Item Value Reference Range Interpretation Comments Calcium Lvl (test code = Calcium Lvl) 8.3 8.5-10.5 [place] 301171-08-07 09:32:00 Test Item Value Reference Range Interpretation Comments AGAP (test code = AGAP) 9.1 10.0-20.0 [place] 301171-08-07 09:32:00 Test Item Value Reference Range Interpretation Comments eGFR (test code = eGFR) 21 [place] 301171-08-07 09:32:00 Test Item Value Reference Range Interpretation Comments Magnesium Lvl (test code = Magnesium 2.2 1.8-2.4 Lvl) [place] [address]-08-07 09:32:00 Test Item Value Reference Range Interpretation Comments Phosphorus (test code = Phosphorus) 3.9 2.5-4.5 [place] 007271-08-07 09:32:00 Test Item Value Reference Range Interpretation Comments WBC (test code = WBC) 2.3 3.7-10.4 [place] 007271-08-07 09:32:00 Test Item Value Reference Range Interpretation Comments RBC (test code = RBC) 2.78 4.20-5.40 [place] 007271-08-07 09:32:00 Test Item Value Reference Range Interpretation Comments Hgb (test code = Hgb) 8.4 12.0-16.0 [place] 007271-08-07 09:32:00 Test Item Value Reference Range Interpretation Comments Hct (test code = Hct) 25.2 36.0-48.0 [place] 007271-08-07 09:32:00 Test Item Value Reference Range Interpretation Comments MCV (test code = MCV) 90.5 80.0-98.0 [place] [address]-08-07 09:32:00 Test Item Value Reference Range Interpretation Comments MCH (test code = MCH) 30.4 pg 27.0-31.0 [place] 007271-08-07 09:32:00 Test Item Value Reference Range Interpretation Comments MCHC (test code = MCHC) 33.5 32.0-36.0 [place] [address]-08-07 09:32:00 Test Item Value Reference Range Interpretation Comments RDW (test code = RDW) 19.0 11.5-14.5 [facility]rt[facility]xmXVBBJOPHPI8018[facility]53-71 09:32:00 Test Item Value Reference Range Interpretation Comments Platelet (test code = Platelet) 87 133-450 [facility] HospitalPurdljlTEMQNAAHGV0699-59-66 09:32:00 Test Item Value Reference Range Interpretation Comments MPV (test code = MPV) 10.0 7.4-10.4 [facility] [id number] 05:33:00 Test Item Value Reference Range Interpretation Comments ABO/Rh (test code = ABO/Rh) B POS [facility] [id number] 05:33:00 Test Item Value Reference Range Interpretation Comments Antibody Scrn (test Negative (01/24/21 12:33 code = Antibody Scrn) AM) [facility] HospitalWegzcmnWSEHYHHNQP7856-01-45 05:33:00 Test Item Value Reference Range Interpretation Comments Segs (test code = Segs) 60.2 45.0-75.0 [facility] HospitalOgdkaotWRQEUPGZDK0812-74-68 05:33:00 Test Item Value Reference Range Interpretation Comments Lymphocytes (test code = Lymphocytes) 28.6 20.0-40.0 [facility] HospitalVqmndxsFGZSDATLCH7554-40-08 05:33:00 Test Item Value Reference Range Interpretation Comments Monocytes (test code = Monocytes) 5.8 2.0-12.0 [facility] HospitalHdomsedUDFKGHKFUU7887-78-50 05:33:00 Test Item Value Reference Range Interpretation Comments Eosinophils (test code = 4.2 See_Comment [A utomated message] The Eosinophils) system which ge nerated this result tra nsmitted reference range : <=4.0. The reference r leo was not used to int erpret this result as normal/abnormal . [facility] HospitalUltctytUNCJKVWVUW0722-52-98 05:33:00 Test Item Value Reference Range Interpretation Comments Basophils (test code = 1.2 See_Comment [Aut omated message] The Basophils) system which ge nerated this result tra nsmitted reference range : <=1.0. The reference r leo was not used to int erpret this result as normal/abnormal . [facility] HospitalDjdnwkgMEWLQLQDSW0626-63-79 05:33:00 Test Item Value Reference Range Interpretation Comments Neutrophils # (test code = Neutrophils 2.2 1.5-8.1 #) [facility] HospitalRammfoeXVWTCOVGZK2929-70-36 05:33:00 Test Item Value Reference Range Interpretation Comments Lymphocytes # (test code = Lymphocytes 1.1 1.0-5.5 #) [facility] HospitalNxscukqTJNKERURMU8744-83-43 05:33:00 Test Item Value Reference Range Interpretation Comments Monocytes # (test code 0.2 See_Comment [Aut omated message] The = Monocytes #) system which generated this result tra nsmitted reference range : <=0.8. The reference r leo was not used to int erpret this result as normal/abnormal . [facility] HospitalXyjcbcoJCAVGEMTXU9353-99-56 05:33:00 Test Item Value Reference Range Interpretation Comments Eosinophils # (test code 0.2 See_Comment [A utomated message] The = Eosinophils #) system whic h generated this result tra nsmitted reference range : <=0.5. The reference r leo was not used to int erpret this result as normal/abnormal . [facility]2021-08-06 05:33:00 Test Item Value Reference Range Interpretation Comments ABO/Rh (test code = ABO/Rh) B POS [facility]2021-08-06 05:33:00 Test Item Value Reference Range Interpretation Comments Antibody Scrn (test Negative (01/24/21 12:33 code = Antibody Scrn) AM) [facility] HospitalZ[id number] 05:33:00 Test Item Value Reference Range Interpretation Comments Segs (test code = Segs) 60.2 45.0-75.0 [facility] HospitalZypvzukUXLPVZEKVC3866-78-02 05:33:00 Test Item Value Reference Range Interpretation Comments Lymphocytes (test code = Lymphocytes) 28.6 20.0-40.0 [place] 007271-08-06 05:33:00 Test Item Value Reference Range Interpretation Comments Monocytes (test code = Monocytes) 5.8 2.0-12.0 [facility] HospitalGyonhzfNCQEGQHNTP3818-85-28 05:33:00 Test Item Value Reference Range Interpretation Comments Eosinophils (test code = 4.2 See_Comment [A utomated message] The Eosinophils) system which ge nerated this result tra nsmitted reference range : <=4.0. The reference r leo was not used to int erpret this result as normal/abnormal . [facility] HospitalRnskptiBSZZCUPVKD4827-29-50 05:33:00 Test Item Value Reference Range Interpretation Comments Basophils (test code = 1.2 See_Comment [Aut omated message] The Basophils) system which ge nerated this result tra nsmitted reference range : <=1.0. The reference r leo was not used to int erpret this result as normal/abnormal . [facility] HospitalFjpzrraAKFDKJMKAF7587-72-64 05:33:00 Test Item Value Reference Range Interpretation Comments Neutrophils # (test code = Neutrophils 2.2 1.5-8.1 #) [facility] HospitalJjuihrfPWVKHXOGTP8902-89-91 05:33:00 Test Item Value Reference Range Interpretation Comments Lymphocytes # (test code = Lymphocytes 1.1 1.0-5.5 #) [facility] HospitalJwngvphNRCYHHOKXX2548-32-38 05:33:00 Test Item Value Reference Range Interpretation Comments Monocytes # (test code 0.2 See_Comment [Aut omated message] The = Monocytes #) system which generated this result tra nsmitted reference range : <=0.8. The reference r leo was not used to int erpret this result as normal/abnormal . [facility] HospitalZtbmnbuKKISUXAIPT9659-51-61 05:33:00 Test Item Value Reference Range Interpretation Comments Eosinophils # (test code 0.2 See_Comment [A utomated message] The = Eosinophils #) system whic h generated this result tra nsmitted reference range : <=0.5. The reference r leo was not used to int erpret this result as normal/abnormal . [facility]2021-08-06 05:33:00 Test Item Value Reference Range Interpretation Comments ABO/Rh (test code = ABO/Rh) B POS [facility] [id number] 05:33:00 Test Item Value Reference Range Interpretation Comments Antibody Scrn (test Negative (01/24/21 12:33 code = Antibody Scrn) AM) [facility] HospitalAawqsalVXFBDHPRCT7275-30-24 05:33:00 Test Item Value Reference Range Interpretation Comments Segs (test code = Segs) 60.2 45.0-75.0 [facility] HospitalBuhcifrTSYVAQTGQU8128-90-85 05:33:00 Test Item Value Reference Range Interpretation Comments Lymphocytes (test code = Lymphocytes) 28.6 20.0-40.0 [facility] HospitalLkmtwboXKMMPAGQAD4100-42-29 05:33:00 Test Item Value Reference Range Interpretation Comments Monocytes (test code = Monocytes) 5.8 2.0-12.0 [facility] HospitalRlivoddLOXORBADFU8690-57-21 05:33:00 Test Item Value Reference Range Interpretation Comments Eosinophils (test code = 4.2 See_Comment [A utomated message] The Eosinophils) system which ge nerated this result tra nsmitted reference range : <=4.0. The reference r leo was not used to int erpret this result as normal/abnormal . [facility] HospitalZhdskbmXJWGHZNOAJ8983-80-33 05:33:00 Test Item Value Reference Range Interpretation Comments Basophils (test code = 1.2 See_Comment [Aut omated message] The Basophils) system which ge nerated this result tra nsmitted reference range : <=1.0. The reference r leo was not used to int erpret this result as normal/abnormal . [facility] HospitalEekofozOHIVZTWOLI7446-16-30 05:33:00 Test Item Value Reference Range Interpretation Comments Neutrophils # (test code = Neutrophils 2.2 1.5-8.1 #) [facility] HospitalDvlafcnNLIKDINGOA4498-38-89 05:33:00 Test Item Value Reference Range Interpretation Comments Lymphocytes # (test code = Lymphocytes 1.1 1.0-5.5 #) [facility] HospitalRljtwvkMPQINPDIWW9711-99-22 05:33:00 Test Item Value Reference Range Interpretation Comments Monocytes # (test code 0.2 See_Comment [Aut omated message] The = Monocytes #) system which generated this result tra nsmitted reference range : <=0.8. The reference r leo was not used to int erpret this result as normal/abnormal . [facility] HospitalVwvxlzmKVAEIGSTDN5974-26-49 05:33:00 Test Item Value Reference Range Interpretation Comments Eosinophils # (test code 0.2 See_Comment [A utomated message] The = Eosinophils #) system whic h generated this result tra nsmitted reference range : <=0.5. The reference r leo was not used to int erpret this result as normal/abnormal . [id number] 05:33:00 Test Item Value Reference Range Interpretation Comments ABO/Rh (test code = ABO/Rh) B POS [facility] [id number] 05:33:00 Test Item Value Reference Range Interpretation Comments Antibody Scrn (test Negative (01/24/21 12:33 code = Antibody Scrn) AM) [facility] HospitalWfolkmbHKJJGVEGRB5495-90-81 05:33:00 Test Item Value Reference Range Interpretation Comments Segs (test code = Segs) 60.2 45.0-75.0 [place] 007271-08-06 05:33:00 Test Item Value Reference Range Interpretation Comments Lymphocytes (test code = Lymphocytes) 28.6 20.0-40.0 [place] 007271-08-06 05:33:00 Test Item Value Reference Range Interpretation Comments Monocytes (test code = Monocytes) 5.8 2.0-12.0 [place] 007271-08-06 05:33:00 Test Item Value Reference Range Interpretation Comments Eosinophils (test code = 4.2 See_Comment [A utomated message] The Eosinophils) system which ge nerated this result tra nsmitted reference range : <=4.0. The reference r leo was not used to int erpret this result as normal/abnormal . [facility] HospitalExbghcsYVUYVDGBLY2055-47-67 05:33:00 Test Item Value Reference Range Interpretation Comments Basophils (test code = 1.2 See_Comment [Aut omated message] The Basophils) system which ge nerated this result tra nsmitted reference range : <=1.0. The reference r leo was not used to int erpret this result as normal/abnormal . [facility] HospitalUblmirlQVODNDHKPP7908-50-24 05:33:00 Test Item Value Reference Range Interpretation Comments Neutrophils # (test code = Neutrophils 2.2 1.5-8.1 #) [facility] HospitalXueducgHLBGHCZAWJ2750-99-97 05:33:00 Test Item Value Reference Range Interpretation Comments Lymphocytes # (test code = Lymphocytes 1.1 1.0-5.5 #) [place] 007271-08-06 05:33:00 Test Item Value Reference Range Interpretation Comments Monocytes # (test code 0.2 See_Comment [Aut omated message] The = Monocytes #) system which generated this result tra nsmitted reference range : <=0.8. The reference r leo was not used to int erpret this result as normal/abnormal . [facility] HospitalUxwubftMUAPOKSAZV0231-87-54 05:33:00 Test Item Value Reference Range Interpretation Comments Eosinophils # (test code 0.2 See_Comment [A utomated message] The = Eosinophils #) system whic h generated this result tra nsmitted reference range : <=0.5. The reference r leo was not used to int erpret this result as normal/abnormal . [facility] [id number] 05:33:00 Test Item Value Reference Range Interpretation Comments ABO/Rh (test code = ABO/Rh) B POS [facility] [id number] 05:33:00 Test Item Value Reference Range Interpretation Comments Antibody Scrn (test Negative (01/24/21 12:33 code = Antibody Scrn) AM) [facility] HospitalIadrwyyOQPBOLPWJY3199-08-16 05:33:00 Test Item Value Reference Range Interpretation Comments Segs (test code = Segs) 60.2 45.0-75.0 [facility] HospitalYjfbaeoCYYLJOITPG8773-05-07 05:33:00 Test Item Value Reference Range Interpretation Comments Lymphocytes (test code = Lymphocytes) 28.6 20.0-40.0 [facility]aleSqckdyuIQFYFCXHUS5048-69-66 05:33:00 Test Item Value Reference Range Interpretation Comments Monocytes (test code = Monocytes) 5.8 2.0-12.0 [facility]anoSrcmtvoYYCIIAJXMX4741-31-97 05:33:00 Test Item Value Reference Range Interpretation Comments Eosinophils (test code = 4.2 See_Comment [A utomated message] The Eosinophils) system which ge nerated this result tra nsmitted reference range : <=4.0. The reference r leo was not used to int erpret this result as normal/abnormal . [facility]valeSzwamlmBEHVGOQLRK5291-98-35 05:33:00 Test Item Value Reference Range Interpretation Comments Basophils (test code = 1.2 See_Comment [Aut omated message] The Basophils) system which ge nerated this result tra nsmitted reference range : <=1.0. The reference r leo was not used to int erpret this result as normal/abnormal . [facility]valeOwhxmsjZRSBUCSWWW1465-55-92 05:33:00 Test Item Value Reference Range Interpretation Comments Neutrophils # (test code = Neutrophils 2.2 1.5-8.1 #) [facility] HospitalAwsqfkxHBEDMVXTWW0546-29-56 05:33:00 Test Item Value Reference Range Interpretation Comments Lymphocytes # (test code = Lymphocytes 1.1 1.0-5.5 #) [facility] HospitalQyvnvosXXLHKNPOVB9656-68-04 05:33:00 Test Item Value Reference Range Interpretation Comments Monocytes # (test code 0.2 See_Comment [Aut omated message] The = Monocytes #) system which generated this result tra nsmitted reference range : <=0.8. The reference r leo was not used to int erpret this result as normal/abnormal . [place] 007271-08-06 05:33:00 Test Item Value Reference Range Interpretation Comments Eosinophils # (test code 0.2 See_Comment [A utomated message] The = Eosinophils #) system whic h generated this result tra nsmitted reference range : <=0.5. The reference r leo was not used to int erpret this result as normal/abnormal . [facility] HospitalOuhoglnARIKTFVAFE3451-13-82 05:53:00 Test Item Value Reference Range Interpretation Comments PT (test code = PT) 14.4 s 12.0-14.7 [place] 007271-08-05 05:53:00 Test Item Value Reference Range Interpretation Comments INR (test code = INR) 1.13 1 0.85-1.17 [place] 007271-08-05 05:53:00 Test Item Value Reference Range Interpretation Comments Fibrinogen Lvl (test code = Fibrinogen 319 230-510 Lvl) [facility] HospitalAcawryhGGULYFBTNE5184-59-36 05:53:00 Test Item Value Reference Range Interpretation Comments Thrombin Time (test code = Thrombin 15.9 s 15.0-21.2 Time) [place] 007271-08-05 05:53:00 Test Item Value Reference Range Interpretation Comments PTT (test code = PTT) 47.0 s 22.9-35.8 [place] 007271-08-05 05:53:00 Test Item Value Reference Range Interpretation Comments D-Dimer (test code = D-Dimer) 0.91 [place] 007271-08-05 05:53:00 Test Item Value Reference Range Interpretation Comments Basophils # (test code 0.1 See_Comment [Aut omated message] The = Basophils #) system which generated this result tra nsmitted reference range : <=0.2. The reference r leo was not used to int erpret this result as normal/abnormal . [place] 325711-08-05 05:53:00 Test Item Value Reference Range Interpretation Comments Ca Ion WB (test code = Ca Ion WB) 1.24 1.05-1.25 [place] 325711-08-05 05:53:00 Test Item Value Reference Range Interpretation Comments Ca Norm WB (test code = Ca Norm WB) 1.25 1.05-1.25 [place] 007271-08-05 05:53:00 Test Item Value Reference Range Interpretation Comments PT (test code = PT) 14.4 s 12.0-14.7 [place] 007271-08-05 05:53:00 Test Item Value Reference Range Interpretation Comments INR (test code = INR) 1.13 1 0.85-1.17 [place] 007271-08-05 05:53:00 Test Item Value Reference Range Interpretation Comments Fibrinogen Lvl (test code = Fibrinogen 319 230-510 Lvl) [place] 007271-08-05 05:53:00 Test Item Value Reference Range Interpretation Comments Thrombin Time (test code = Thrombin 15.9 s 15.0-21.2 Time) [facility] HospitalXwnfrehUEHNZUPQAD8936-95-55 05:53:00 Test Item Value Reference Range Interpretation Comments PTT (test code = PTT) 47.0 s 22.9-35.8 [place] 007271-08-05 05:53:00 Test Item Value Reference Range Interpretation Comments D-Dimer (test code = D-Dimer) 0.91 [place] [address]-08-05 05:53:00 Test Item Value Reference Range Interpretation Comments Basophils # (test code 0.1 See_Comment [Aut omated message] The = Basophils #) system which generated this result tra nsmitted reference range : <=0.2. The reference r leo was not used to int erpret this result as normal/abnormal . [place] 325711-08-05 05:53:00 Test Item Value Reference Range Interpretation Comments Ca Ion WB (test code = Ca Ion WB) 1.24 1.05-1.25 [place] 325711-08-05 05:53:00 Test Item Value Reference Range Interpretation Comments Ca Norm WB (test code = Ca Norm WB) 1.25 1.05-1.25 [facility] HospitalFdgsrhcFCOTRCBIDA3476-98-64 05:53:00 Test Item Value Reference Range Interpretation Comments PT (test code = PT) 14.4 s 12.0-14.7 [facility] HospitalUypudfwZXXNCILGCX9913-00-40 05:53:00 Test Item Value Reference Range Interpretation Comments INR (test code = INR) 1.13 1 0.85-1.17 [facility] HospitalUgsyahoJOPBPFAVXR2934-83-15 05:53:00 Test Item Value Reference Range Interpretation Comments Fibrinogen Lvl (test code = Fibrinogen 319 230-510 Lvl) [facility] HospitalVhinpiyYVYORMZWQW6387-90-99 05:53:00 Test Item Value Reference Range Interpretation Comments Thrombin Time (test code = Thrombin 15.9 s 15.0-21.2 Time) [facility] HospitalCkqakdjOVSPILVLAC6981-77-07 05:53:00 Test Item Value Reference Range Interpretation Comments PTT (test code = PTT) 47.0 s 22.9-35.8 [facility] HospitalMfpjtlpIJIHVZHJFV3099-62-55 05:53:00 Test Item Value Reference Range Interpretation Comments D-Dimer (test code = D-Dimer) 0.91 [facility] HospitalSnbvymjWRMULVHFVY4243-66-99 05:53:00 Test Item Value Reference Range Interpretation Comments Basophils # (test code 0.1 See_Comment [Aut omated message] The = Basophils #) system which generated this result tra nsmitted reference range : <=0.2. The reference r leo was not used to int erpret this result as normal/abnormal . [facility]ATH[facility] WZBVMDP3898-87-69 05:53:00 Test Item Value Reference Range Interpretation Comments Ca Ion WB (test code = Ca Ion WB) 1.24 1.05-1.25 [facility]alePARATHYROID LACXJYW1334-77-74 05:53:00 Test Item Value Reference Range Interpretation Comments Ca Norm WB (test code = Ca Norm WB) 1.25 1.05-1.25 [facility] HospitalIntshiiHALVGHGVUN5050-94-53 05:53:00 Test Item Value Reference Range Interpretation Comments PT (test code = PT) 14.4 s 12.0-14.7 [facility] HospitalTanduchOQUWWJFIKW1946-21-91 05:53:00 Test Item Value Reference Range Interpretation Comments INR (test code = INR) 1.13 1 0.85-1.17 [facility] HospitalNtoqtbyKJUCRPJDHW1239-02-92 05:53:00 Test Item Value Reference Range Interpretation Comments Fibrinogen Lvl (test code = Fibrinogen 319 230-510 Lvl) [facility] HospitalBsekizrPKNQOTHYOE7492-75-41 05:53:00 Test Item Value Reference Range Interpretation Comments Thrombin Time (test code = Thrombin 15.9 s 15.0-21.2 Time) [facility] HospitalIlwbmjhWQWPMOSFFE4998-29-67 05:53:00 Test Item Value Reference Range Interpretation Comments PTT (test code = PTT) 47.0 s 22.9-35.8 [facility] HospitalJehmnmmNJXHEGACSM6741-25-85 05:53:00 Test Item Value Reference Range Interpretation Comments D-Dimer (test code = D-Dimer) 0.91 [facility] HospitalPsdecmjGFGQLYPYPK5590-37-46 05:53:00 Test Item Value Reference Range Interpretation Comments Basophils # (test code 0.1 See_Comment [Aut omated message] The = Basophils #) system which generated this result tra nsmitted reference range : <=0.2. The reference r leo was not used to int erpret this result as normal/abnormal . [facility]2021-08-05 05:53:00 Test Item Value Reference Range Interpretation Comments Ca Ion WB (test code = Ca Ion WB) 1.24 1.05-1.25 [facility]2021-08-05 05:53:00 Test Item Value Reference Range Interpretation Comments Ca Norm WB (test code = Ca Norm WB) 1.25 1.05-1.25 [facility] HospitalEzookqjYROKBULDCX7198-86-98 05:53:00 Test Item Value Reference Range Interpretation Comments PT (test code = PT) 14.4 s 12.0-14.7 [facility] HospitalWfucdajKRNTRCFQWA5031-88-33 05:53:00 Test Item Value Reference Range Interpretation Comments INR (test code = INR) 1.13 1 0.85-1.17 [facility] HospitalAkvoiijQBDSBPXLMP9288-74-55 05:53:00 Test Item Value Reference Range Interpretation Comments Fibrinogen Lvl (test code = Fibrinogen 319 230-510 Lvl) [facility] HospitalGfwwlkeSHTGMYFJZV8079-65-72 05:53:00 Test Item Value Reference Range Interpretation Comments Thrombin Time (test code = Thrombin 15.9 s 15.0-21.2 Time) [place] 007271-08-05 05:53:00 Test Item Value Reference Range Interpretation Comments PTT (test code = PTT) 47.0 s 22.9-35.8 [place] 007271-08-05 05:53:00 Test Item Value Reference Range Interpretation Comments D-Dimer (test code = D-Dimer) 0.91 [place] 007271-08-05 05:53:00 Test Item Value Reference Range Interpretation Comments Basophils # (test code 0.1 See_Comment [Aut omated message] The = Basophils #) system which generated this result tra nsmitted reference range : <=0.2. The reference r leo was not used to int erpret this result as normal/abnormal . [facility]2021-08-05 05:53:00 Test Item Value Reference Range Interpretation Comments Ca Ion WB (test code = Ca Ion WB) 1.24 1.05-1.25 [facility] HospitalOree Advanced Illumination SolutionsJUSTIN [place] 40036TBIRDDW7377-07-15 05:53:00 Test Item Value Reference Range Interpretation Comments Ca Norm WB (test code = Ca Norm WB) 1.25 1.05-1.25 [facility] GroupF[facility] [id number] 10:09:00 Test Item Value Reference Range Interpretation Comments ALT (test code = ALT) 49 See_Comment [Auto mated message] The system which ge nerated this result transmit rohit reference range : <=65. The reference range was not used to interpr et this result as reji l/abnormal. [facility] GroupFlier [id number] 10:09:00 Test Item Value Reference Range Interpretation Comments Albumin Lvl (test code = Albumin Lvl) 2.8 3.5-5.0 [facility]-A [id number] 10:09:00 Test Item Value Reference Range Interpretation Comments Alk Phos (test code = Alk Phos) 41 39-136 [facility] GroupF[facility] [id number] 10:09:00 Test Item Value Reference Range Interpretation Comments Bili Direct (test code 0.2 See_Comment [Aut omated message] The = Bili Direct) system which generated this result tra nsmitted reference range : <=0.3. The reference r leo was not used to int erpret this result as reji l/abnormal. [facility] HermPsychiatric hospitalKGQAR9738-80-78 10:09:00 Test Item Value Reference Range Interpretation [...] [facility] [id number] 10:09:00 Test Item Value Reference Range Interpretation Comments Total Protein (test code = Total 5.6 6.4-8.4 Protein) [facility] SunnyvaleShopReply [id number] 10:09:00 Test Item Value Reference Range Interpretation Comments AST (test code = AST) 33 See_Comment [Auto mated message] The system which ge nerated this result transmit rohit reference range : <=37. The reference range was not used to interpr et this result as reji l/abnormal. [facility]valeShopReply [id number] 10:09:00 Test Item Value Reference Range Interpretation Comments Globulin (test code = Globulin) 2.8 2.7-4.2 [facility] [id number] 10:09:00 Test Item Value Reference Range Interpretation Comments A/G Ratio (test code = A/G Ratio) 1.0 1 0.7-1.6 [facility] [id number] 10:09:00 Test Item Value Reference Range Interpretation Comments Amylase Lvl (test code = Amylase Lvl) 19 25-115 [facility] [id number] 10:09:00 Test Item Value Reference Range Interpretation Comments Lipase Lvl (test code = Lipase Lvl) no gt 73-393 [facility] SunnyvaleYcbdxcoAYZXQZDIAM1485-20-73 10:09:00 Test Item Value Reference Range Interpretation Comments PTT (test code = PTT) 41.4 s 22.9-35.8 [facility] SunnyvaleXogcfwzRIYCEPSWHQ2932-29-94 10:09:00 Test Item Value Reference Range Interpretation Comments PT (test code = PT) 15.4 s 12.0-14.7 [facility] SunnyvaleSemrukuETAEFDZYNA7976-12-30 10:09:00 Test Item Value Reference Range Interpretation Comments INR (test code = INR) 1.24 1 0.85-1.17 [facility] SunnyvaleIyriczsXIERLHEUPF5040-61-50 10:09:00 Test Item Value Reference Range Interpretation Comments Fibrinogen Lvl (test code = Fibrinogen 312 230-510 Lvl) [facility] HospitalDfsophvASEYLHHLER7928-14-51 10:09:00 Test Item Value Reference Range Interpretation Comments Thrombin Time (test code = Thrombin 16.6 s 15.0-21.2 Time) [facility] HospitalWgpyzimWJSCHDJING6487-56-51 10:09:00 Test Item Value Reference Range Interpretation Comments D-Dimer (test code = D-Dimer) 4.91 [facility] HospitalTzmtoutWMPTHYHJZB7852-16-29 10:09:00 Test Item Value Reference Range Interpretation Comments Basophils # (test code 0.1 See_Comment [Aut omated message] The = Basophils #) system which generated this result tra nsmitted reference range : <=0.2. The reference r leo was not used to int erpret this result as normal/abnormal . [facility] JVEBUTJGR2122-88-70 10:09:00 Test Item Value Reference Range Interpretation Comments Hgb A1C (test code = Hgb A1C) 5.6 [facility]valeShopReply [id number] 10:09:00 Test Item Value Reference Range Interpretation Comments ALT (test code = ALT) 49 See_Comment [Auto mated message] The system which ge nerated this result transmit rohit reference range : <=65. The reference range was not used to interpr et this result as reji l/abnormal. [facility]valeShopReply [id number] 10:09:00 Test Item Value Reference Range Interpretation Comments Albumin Lvl (test code = Albumin Lvl) 2.8 3.5-5.0 [facility]aleShopReply [id number] 10:09:00 Test Item Value Reference Range Interpretation Comments Alk Phos (test code = Alk Phos) 41 39-136 [facility]aleShopReply [id number] 10:09:00 Test Item Value Reference Range Interpretation Comments Bili Direct (test code 0.2 See_Comment [Aut omated message] The = Bili Direct) system which generated this result tra nsmitted reference range : <=0.3. The reference r leo was not used to int erpret this result as reji l/abnormal. [facility] [id number] 10:09:00 Test Item Value Reference Range Interpretation Comments Bili Total (test code = Bili Total) 0.6 0.2-1.3 [facility]valeShopReply [id number] 10:09:00 Test Item Value Reference Range Interpretation Comments Bili Indirect (test 0.4 See_Comment [Automa rohit message] The code = Bili Indirect) system which generated this result tra nsmitted reference range : <=1.0. The reference r leo was not used to int erpret this result as normal/abnormal . [facility] [id number] 10:09:00 Test Item Value Reference Range Interpretation Comments Total Protein (test code = Total 5.6 6.4-8.4 Protein) [facility]valeShopReply [id number] 10:09:00 Test Item Value Reference Range Interpretation Comments AST (test code = AST) 33 See_Comment [Auto mated message] The system which ge nerated this result transmit rohit reference range : <=37. The reference range was not used to interpr et this result as reji l/abnormal. [facility] [id number] 10:09:00 Test Item Value Reference Range Interpretation Comments Globulin (test code = Globulin) 2.8 2.7-4.2 [facility] [id number] 10:09:00 Test Item Value Reference Range Interpretation Comments A/G Ratio (test code = A/G Ratio) 1.0 1 0.7-1.6 [facility] [id number] 10:09:00 Test Item Value Reference Range Interpretation Comments Amylase Lvl (test code = Amylase Lvl) 19 25-115 [facility] [id number] 10:09:00 Test Item Value Reference Range Interpretation Comments Lipase Lvl (test code = Lipase Lvl) no gt 73-393 [facility] SunnyvaleJzxcrceDOTLZBXKIJ4734-41-45 10:09:00 Test Item Value Reference Range Interpretation Comments PTT (test code = PTT) 41.4 s 22.9-35.8 [facility] SunnyvaleNqwzyblGHVAWSSIEZ6442-61-89 10:09:00 Test Item Value Reference Range Interpretation Comments PT (test code = PT) 15.4 s 12.0-14.7 [facility] PlanoDxhwvqdCGTTQJIHRD9428-01-77 10:09:00 Test Item Value Reference Range Interpretation Comments INR (test code = INR) 1.24 1 0.85-1.17 [facility] HospitalGfvoqadEWDXFJXMCX5163-34-60 10:09:00 Test Item Value Reference Range Interpretation Comments Fibrinogen Lvl (test code = Fibrinogen 312 230-510 Lvl) [facility] HospitalBphzwfaCSAPSZGCHL8245-83-99 10:09:00 Test Item Value Reference Range Interpretation Comments Thrombin Time (test code = Thrombin 16.6 s 15.0-21.2 Time) [facility] HospitalRojdsxdPRFPFQWMWM9829-33-87 10:09:00 Test Item Value Reference Range Interpretation Comments D-Dimer (test code = D-Dimer) 4.91 [facility] HospitalBayzswnQIUEXDTZTI1778-22-58 10:09:00 Test Item Value Reference Range Interpretation Comments Basophils # (test code 0.1 See_Comment [Aut omated message] The = Basophils #) system which generated this result tra nsmitted reference range : <=0.2. The reference r leo was not used to int erpret this result as normal/abnormal . [facility] [id number] 10:09:00 Test Item Value Reference Range Interpretation Comments Hgb A1C (test code = Hgb A1C) 5.6 [facility]aleShopReply [id number] 10:09:00 Test Item Value Reference Range Interpretation Comments ALT (test code = ALT) 49 See_Comment [Auto mated message] The system which ge nerated this result transmit rohit reference range : <=65. The reference range was not used to interpr et this result as reji l/abnormal. [facility]aleShopReply [id number] 10:09:00 Test Item Value Reference Range Interpretation Comments Albumin Lvl (test code = Albumin Lvl) 2.8 3.5-5.0 [facility]aleShopReply [id number] 10:09:00 Test Item Value Reference Range Interpretation Comments Alk Phos (test code = Alk Phos) 41 39-136 [facility]aleShopReply [id number] 10:09:00 Test Item Value Reference Range Interpretation Comments Bili Direct (test code 0.2 See_Comment [Aut omated message] The = Bili Direct) system which generated this result tra nsmitted reference range : <=0.3. The reference r leo was not used to int erpret this result as reji l/abnormal. [facility] [id number] 10:09:00 Test Item Value Reference Range Interpretation Comments Bili Total (test code = Bili Total) 0.6 0.2-1.3 [facility]aleShopReply [id number] 10:09:00 Test Item Value Reference Range Interpretation Comments Bili Indirect (test 0.4 See_Comment [Automa rohit message] The code = Bili Indirect) system which generated this result tra nsmitted reference range : <=1.0. The reference r leo was not used to int erpret this result as normal/abnormal . [facility] [id number] 10:09:00 Test Item Value Reference Range Interpretation Comments Total Protein (test code = Total 5.6 6.4-8.4 Protein) [facility] [id number] 10:09:00 Test Item Value Reference Range Interpretation Comments AST (test code = AST) 33 See_Comment [Auto mated message] The system which ge nerated this result transmit rohit reference range : <=37. The reference range was not used to interpr et this result as reji l/abnormal. [facility] [id number] 10:09:00 Test Item Value Reference Range Interpretation Comments Globulin (test code = Globulin) 2.8 2.7-4.2 [facility] [id number] 10:09:00 Test Item Value Reference Range Interpretation Comments A/G Ratio (test code = A/G Ratio) 1.0 1 0.7-1.6 [facility] [id number] 10:09:00 Test Item Value Reference Range Interpretation Comments Amylase Lvl (test code = Amylase Lvl) 19 25-115 [facility] [id number] 10:09:00 Test Item Value Reference Range Interpretation Comments Lipase Lvl (test code = Lipase Lvl) no gt 73-393 [facility] SunnyvaleVnyucpqGXTXXCNNCL2060-69-82 10:09:00 Test Item Value Reference Range Interpretation Comments PTT (test code = PTT) 41.4 s 22.9-35.8 [facility] PlanoQocefciNIPREKOULF7644-54-21 10:09:00 Test Item Value Reference Range Interpretation Comments PT (test code = PT) 15.4 s 12.0-14.7 [facility] HospitalTxuxdbbXXYKFAOSBY5000-65-65 10:09:00 Test Item Value Reference Range Interpretation Comments INR (test code = INR) 1.24 1 0.85-1.17 [place] [id number] 10:09:00 Test Item Value Reference Range Interpretation Comments Fibrinogen Lvl (test code = Fibrinogen 312 230-510 Lvl) [facility]qoxthkJYGXYUJRHX8316-41-42 10:09:00 Test Item Value Reference Range Interpretation Comments Thrombin Time (test code = Thrombin 16.6 s 15.0-21.2 Time) [facility] HospitalRracupmCGENGWLNMZ5396-84-65 10:09:00 Test Item Value Reference Range Interpretation Comments D-Dimer (test code = D-Dimer) 4.91 [place] [address]-08-04 10:09:00 Test Item Value Reference Range Interpretation Comments Basophils # (test code 0.1 See_Comment [Aut omated message] The = Basophils #) system which generated this result tra nsmitted reference range : <=0.2. The reference r leo was not used to int erpret this result as normal/abnormal . [facility] [id number] 10:09:00 Test Item Value Reference Range Interpretation Comments Hgb A1C (test code = Hgb A1C) 5.6 [facility] [id number] 10:09:00 Test Item Value Reference Range Interpretation Comments ALT (test code = ALT) 49 See_Comment [Auto mated message] The system which ge nerated this result transmit rohit reference range : <=65. The reference range was not used to interpr et this result as reji l/abnormal. [facility]aleShopReply [id number] 10:09:00 Test Item Value Reference Range Interpretation Comments Albumin Lvl (test code = Albumin Lvl) 2.8 3.5-5.0 [facility]aleShopReply [id number] 10:09:00 Test Item Value Reference Range Interpretation [...] [facility] [id number] 10:09:00 Test Item Value Reference Range Interpretation Comments Bili Total (test code = Bili Total) 0.6 0.2-1.3 [facility] [id number] 10:09:00 Test Item Value Reference Range Interpretation Comments Bili Indirect (test 0.4 See_Comment [Automa rohit message] The code = Bili Indirect) system which generated this result tra nsmitted reference range : <=1.0. The reference r leo was not used to int erpret this result as normal/abnormal . [facility] [id number] 10:09:00 Test Item Value Reference Range Interpretation Comments Total Protein (test code = Total 5.6 6.4-8.4 Protein) [facility] [id number] 10:09:00 Test Item Value Reference Range Interpretation Comments AST (test code = AST) 33 See_Comment [Auto mated message] The system which ge nerated this result transmit rohit reference range : <=37. The reference range was not used to interpr et this result as reji l/abnormal. [facility] [id number] 10:09:00 Test Item Value Reference Range Interpretation Comments Globulin (test code = Globulin) 2.8 2.7-4.2 [facility] [id number] 10:09:00 Test Item Value Reference Range Interpretation Comments A/G Ratio (test code = A/G Ratio) 1.0 1 0.7-1.6 [facility] [id number] 10:09:00 Test Item Value Reference Range Interpretation Comments Amylase Lvl (test code = Amylase Lvl) 19 25-115 [facility] GroupFlier [id number] 10:09:00 Test Item Value Reference Range Interpretation Comments Lipase Lvl (test code = Lipase Lvl) no gt 73-393 [facility] SunnyvaleXzjcsjzXLEGXHMQRP1707-03-43 10:09:00 Test Item Value Reference Range Interpretation Comments PTT (test code = PTT) 41.4 s 22.9-35.8 [facility] PlanoFcpxmzcHXVUHXKJYX0821-59-71 10:09:00 Test Item Value Reference Range Interpretation Comments PT (test code = PT) 15.4 s 12.0-14.7 [facility] RegionOnackzlMFBKJODRWP7950-84-05 10:09:00 Test Item Value Reference Range Interpretation Comments INR (test code = INR) 1.24 1 0.85-1.17 [facility] RegionMvsvqheTJBUBORVUI8189-45-77 10:09:00 Test Item Value Reference Range Interpretation Comments Fibrinogen Lvl (test code = Fibrinogen 312 230-510 Lvl) [facility] RegionBnarxwdRZDYDTNKWJ1155-09-25 10:09:00 Test Item Value Reference Range Interpretation Comments Thrombin Time (test code = Thrombin 16.6 s 15.0-21.2 Time) [facility] HospitalUnfpkjhYCBSDMHTSK7183-80-12 10:09:00 Test Item Value Reference Range Interpretation Comments D-Dimer (test code = D-Dimer) 4.91 [facility] Hos[id number] 10:09:00 Test Item Value Reference Range Interpretation Comments Basophils # (test code 0.1 See_Comment [Aut omated message] The = Basophils #) system which generated this result tra nsmitted reference range : <=0.2. The reference r leo was not used to int erpret this result as normal/abnormal . [facility] [id number] 10:09:00 Test Item Value Reference Range Interpretation Comments Hgb A1C (test code = Hgb A1C) 5.6 [facility] [id number] 10:09:00 Test Item Value Reference Range Interpretation Comments ALT (test code = ALT) 49 See_Comment [Auto mated message] The system which ge nerated this result transmit rohit reference range : <=65. The reference range was not used to interpr et this result as reji l/abnormal. [facility] [employer] [id number] 10:09:00 Test Item Value Reference Range Interpretation Comments Albumin Lvl (test code = Albumin Lvl) 2.8 3.5-5.0 [facility] [employer] [id number] 10:09:00 Test Item Value Reference Range Interpretation Comments Alk Phos (test code = Alk Phos) 41 39-136 [facility] [id number] 10:09:00 Test Item Value Reference Range Interpretation Comments Bili Direct (test code 0.2 See_Comment [Aut omated message] The = Bili Direct) system which generated this result tra nsmitted reference range : <=0.3. The reference r leo was not used to int erpret this result as reji l/abnormal. [facility]ShopReply [id number] 10:09:00 Test Item Value Reference Range Interpretation Comments Bili Total (test code = Bili Total) 0.6 0.2-1.3 [facility]ShopReply [id number] 10:09:00 Test Item Value Reference Range Interpretation Comments Bili Indirect (test 0.4 See_Comment [Automa rohit message] The code = Bili Indirect) system which generated this result tra nsmitted reference range : <=1.0. The reference r leo was not used to int erpret this result as normal/abnormal . [facility]aleShopReply [id number] 10:09:00 Test Item Value Reference Range Interpretation Comments Total Protein (test code = Total 5.6 6.4-8.4 Protein) [facility]ShopReply [id number] 10:09:00 Test Item Value Reference Range Interpretation Comments AST (test code = AST) 33 See_Comment [Auto mated message] The system which ge nerated this result transmit rohit reference range : <=37. The reference range was not used to interpr et this result as reji l/abnormal. [facility]ShopReply [id number] 10:09:00 Test Item Value Reference Range Interpretation Comments Globulin (test code = Globulin) 2.8 2.7-4.2 [facility]aleShopReply [id number] 10:09:00 Test Item Value Reference Range Interpretation Comments A/G Ratio (test code = A/G Ratio) 1.0 1 0.7-1.6 [facility]aleShopReply [id number] 10:09:00 Test Item Value Reference Range Interpretation Comments Amylase Lvl (test code = Amylase Lvl) 19 25-115 [facility] [id number] 10:09:00 Test Item Value Reference Range Interpretation Comments Lipase Lvl (test code = [place] [address] [facility] HospitalKjhiptyEFYXBNPORR3679-40-64 10:09:00 Test Item Value Reference Range Interpretation Comments PTT (test code = PTT) 41.4 s 22.9-35.8 [facility] SunnyvaleLludluqUXUSTQTKXT6607-72-98 10:09:00 Test Item Value Reference Range Interpretation Comments PT (test code = PT) 15.4 s 12.0-14.7 [facility] SunnyvaleZstnwvkXOZOAWIWFW3276-29-02 10:09:00 Test Item Value Reference Range Interpretation Comments INR (test code = INR) 1.24 1 0.85-1.17 [facility] RegionKvjycdoKYGJRVSZTP3024-90-39 10:09:00 Test Item Value Reference Range Interpretation Comments Fibrinogen Lvl (test code = Fibrinogen 312 230-510 Lvl) [facility] RegionTmspxlhMGEVDCIHBK6156-70-10 10:09:00 Test Item Value Reference Range Interpretation Comments Thrombin Time (test code = Thrombin 16.6 s 15.0-21.2 Time) [facility] HospitalCaehbgqRYIEVPPWDI4966-03-50 10:09:00 Test Item Value Reference Range Interpretation Comments D-Dimer (test code = D-Dimer) 4.91 [facility] HospitalQxyhvskSWXIUTULCG2068-00-16 10:09:00 Test Item Value Reference Range Interpretation Comments Basophils # (test code 0.1 See_Comment [Aut omated message] The = Basophils #) system which generated this result tra nsmitted reference range : <=0.2. The reference r leo was not used to int erpret this result as normal/abnormal . [facility] OSCQSGQAM2562-83-80 10:09:00 Test Item Value Reference Range Interpretation Comments Hgb A1C (test code = Hgb A1C) 5.6 [facility]valeCHEM [id number] 09:07:00 Test Item Value Reference Range Interpretation Comments Amylase Lvl (test code = Amylase Lvl) 4 25-115 [facility]valeKpfyvtoQYKQTVXOHA9826-25-95 09:07:00 Test Item Value Reference Range Interpretation Comments Thrombin Time (test code = Thrombin 18.0 s 15.0-21.2 Time) [facility] HospitalHtzobbyOGQIWQYUYG2757-48-46 09:07:00 Test Item Value Reference Range Interpretation Comments PT (test code = PT) 24.6 s 12.0-14.7 [facility] SunnyvaleWqluxmqMFUPIOBFEB5625-71-05 09:07:00 Test Item Value Reference Range Interpretation Comments INR (test code = INR) 2.31 1 0.85-1.17 [facility] SunnyvaleMrtmmakPRSGGFLCFZ8150-17-26 09:07:00 Test Item Value Reference Range Interpretation Comments PTT (test code = PTT) 57.5 s 22.9-35.8 [place] 007271-08-04 09:07:00 Test Item Value Reference Range Interpretation Comments Fibrinogen Lvl (test code = Fibrinogen 125 230-510 Lvl) [facility] HospitalNjqahyjLKQXGHCNVN4617-37-45 09:07:00 Test Item Value Reference Range Interpretation Comments D-Dimer (test code = D-Dimer) 2.28 [facility]2021-08-04 09:07:00 Test Item Value Reference Range Interpretation Comments Amylase Lvl (test code = Amylase Lvl) 4 - [facility] HospitalQpmyaocUXQJGVWTXA0943-59-77 09:07:00 Test Item Value Reference Range Interpretation Comments Thrombin Time (test code = Thrombin 18.0 s 15.0-21.2 Time) [place] 007271-08-04 09:07:00 Test Item Value Reference Range Interpretation Comments PT (test code = PT) 24.6 s 12.0-14.7 [place] 007271-08-04 09:07:00 Test Item Value Reference Range Interpretation Comments INR (test code = INR) 2.31 1 0.85-1.17 [place] 007271-08-04 09:07:00 Test Item Value Reference Range Interpretation Comments PTT (test code = PTT) 57.5 s 22.9-35.8 [place] 007271-08-04 09:07:00 Test Item Value Reference Range Interpretation Comments Fibrinogen Lvl (test code = Fibrinogen 125 230-510 Lvl) [facility] HospitalHwcvxynJYSZDTDDXA2478-67-32 09:07:00 Test Item Value Reference Range Interpretation Comments D-Dimer (test code = D-Dimer) 2.28 [facility]2021-08-04 09:07:00 Test Item Value Reference Range Interpretation Comments Amylase Lvl (test code = Amylase Lvl) 4 25- [facility] HospitalDrvjpqcYGPUGASFEU1059-49-45 09:07:00 Test Item Value Reference Range Interpretation Comments Thrombin Time (test code = Thrombin 18.0 s 15.0-21.2 Time) [facility] HospitalQryjaymTGMHPSMFVL7646-47-60 09:07:00 Test Item Value Reference Range Interpretation Comments PT (test code = PT) 24.6 s 12.0-14.7 [place] 007271-08-04 09:07:00 Test Item Value Reference Range Interpretation Comments INR (test code = INR) 2.31 1 0.85-1.17 [facility] HospitalKobhvhfVRSBUGKQKH9384-02-83 09:07:00 Test Item Value Reference Range Interpretation Comments PTT (test code = PTT) 57.5 s 22.9-35.8 [place] 007271-08-04 09:07:00 Test Item Value Reference Range Interpretation Comments Fibrinogen Lvl (test code = Fibrinogen 125 230-510 Lvl) [facility] HospitalZkxgmeoBPQLSZHMKL8164-67-79 09:07:00 Test Item Value Reference Range Interpretation Comments D-Dimer (test code = D-Dimer) 2.28 [facility]2021-08-04 09:07:00 Test Item Value Reference Range Interpretation Comments Amylase Lvl (test code = Amylase Lvl) 4 [facility] HospitalOqgyciwQXQAFSQDQC9911-19-53 09:07:00 Test Item Value Reference Range Interpretation Comments Thrombin Time (test code = Thrombin 18.0 s 15.0-21.2 Time) [facility] HospitalLfraizsFLYXWLUOFQ7644-28-84 09:07:00 Test Item Value Reference Range Interpretation Comments PT (test code = PT) 24.6 s 12.0-14.7 [facility] HospitalHvelcgoZSUIFGSIAT9943-25-70 09:07:00 Test Item Value Reference Range Interpretation Comments INR (test code = INR) 2.31 1 0.85-1.17 [facility] HospitalEnsmqloBRPCWWGODO8445-63-70 09:07:00 Test Item Value Reference Range Interpretation Comments PTT (test code = PTT) 57.5 s 22.9-35.8 [facility] HospitalPyxgslpYERCZKCVBI0365-48-18 09:07:00 Test Item Value Reference Range Interpretation Comments Fibrinogen Lvl (test code = Fibrinogen 125 230-510 Lvl) [facility] HospitalZzzluhkKTOMUMQMIR4518-97-82 09:07:00 Test Item Value Reference Range Interpretation Comments D-Dimer (test code = D-Dimer) 2.28 [facility]2021-08-04 09:07:00 Test Item Value Reference Range Interpretation Comments Amylase Lvl (test code = Amylase Lvl) 4 - [facility] HospitalIfqcdnsWZQKTXZDND7278-93-90 09:07:00 Test Item Value Reference Range Interpretation Comments Thrombin Time (test code = Thrombin 18.0 s 15.0-21.2 Time) [place] [address]-08-04 09:07:00 Test Item Value Reference Range Interpretation Comments PT (test code = PT) 24.6 s 12.0-14.7 [facility] HospitalVdqaurrXDNVRECQVE0649-53-24 09:07:00 Test Item Value Reference Range Interpretation Comments INR (test code = INR) 2.31 1 0.85-1.17 [facility] RegionWgykjujZWGCYZDOHI7944-17-74 09:07:00 Test Item Value Reference Range Interpretation Comments PTT (test code = PTT) 57.5 s 22.9-35.8 [facility] RegionAtssanxMVZTSTSPVO8520-12-18 09:07:00 Test Item Value Reference Range Interpretation Comments Fibrinogen Lvl (test code = Fibrinogen 125 230-510 Lvl) [facility] HospitalJdacgesYWYMQHQTXD6448-21-73 09:07:00 Test Item Value Reference Range Interpretation Comments D-Dimer (test code = D-Dimer) 2.28 [facility] [id number] 04:52:00 Test Item Value Reference Range Interpretation Comments RBC product (test code Product available = RBC product) (01/21/21 11:52 PM) [facility] [id number] 04:52:00 Test Item Value Reference Range Interpretation Comments RBC product (test code Product available = RBC product) (01/21/21 11:52 PM) [facility] [id number] 04:52:00 Test Item Value Reference Range Interpretation Comments RBC product (test code Product available = RBC product) (01/21/21 11:52 PM) [facility] [id number] 04:52:00 Test Item Value Reference Range Interpretation Comments RBC product (test code Product available = RBC product) (01/21/21 11:52 PM) [facility] [id number] 04:52:00 Test Item Value Reference Range Interpretation Comments RBC product (test code Product available = RBC product) (01/21/21 11:52 PM) [facility]aleCARDIAC [id number] 00:38:00 Test Item Value Reference Range Interpretation Comments Troponin-I (test code no gt See_Comment [Auto mated message] The = Troponin-I) system which g enerated this result transmit rohit reference range : <=0.40. The reference r leo was not used to interpr et this result as reji l/abnormal. [facility] 00:38:00 Test Item Value Reference Range Interpretation Comments Troponin-I (test code no gt See_Comment [Auto mated message] The = Troponin-I) system which g enerated this result transmit rohit reference range : <=0.40. The reference r leo was not used to interpr et this result as reji l/abnormal. [facility]04 00:38:00 Test Item Value Reference Range Interpretation Comments Troponin-I (test code no gt See_Comment [Auto mated message] The = Troponin-I) system which g enerated this result transmit rohit reference range : <=0.40. The reference r leo was not used to interpr et this result as reji l/abnormal. [facility]04 00:38:00 Test Item Value Reference Range Interpretation Comments Troponin-I (test code no gt See_Comment [Auto mated message] The = Troponin-I) system which g enerated this result transmit rohit reference range : <=0.40. The reference r leo was not used to interpr et this result as reji l/abnormal. [facility]04 00:38:00 Test Item Value Reference Range Interpretation Comments Troponin-I (test code no gt See_Comment [Auto mated message] The = Troponin-I) system which g enerated this result transmit rohit reference range : <=0.40. The reference r leo was not used to interpr et this result as reji l/abnormal. [facility]2021-[facility]-03 17:47:00 Test Item Value Reference Range Interpretation Comments BNP (test code = BNP) 2324 [facility] 17:47:00 Test Item Value Reference Range Interpretation Comments Troponin-I (test code 0.02 See_Comment [Auto mated message] The = Troponin-I) system which g enerated this result transmit rohit reference range : <=0.40. The reference r leo was not used to interpr et this result as reji l/abnormal. [facility] PlanoKulttmoCSMFOIGTAD5383-31-63 17:47:00 Test Item Value Reference Range Interpretation Comments Hep Bs Ag (test code Negative *NA*(01/21/21 = Hep Bs Ag) 12:47 PM) [facility] CuppleannCARDIAC [id number] 17:47:00 Test Item Value Reference Range Interpretation Comments BNP (test code = BNP) 2324 [facility] CuppleannCARDIAC [id number] 17:47:00 Test Item Value Reference Range Interpretation Comments Troponin-I (test code 0.02 See_Comment [Auto mated message] The = Troponin-I) system which g enerated this result transmit rohit reference range : <=0.40. The reference r leo was not used to interpr et this result as reji l/abnormal. [facility] ThjkwnrJQIKENWPYX5223-57-97 17:47:00 Test Item Value Reference Range Interpretation Comments Hep Bs Ag (test code Negative *NA*(01/21/21 = Hep Bs Ag) 12:47 PM) [facility] [employer] [id number] 17:47:00 Test Item Value Reference Range Interpretation Comments BNP (test code = BNP) 2324 [facility] CuppleannCARSysomosAC [id number] 17:47:00 Test Item Value Reference Range Interpretation Comments Troponin-I (test code 0.02 See_Comment [Auto mated message] The = Troponin-I) system which g enerated this result transmit rohit reference range : <=0.40. The reference r leo was not used to interpr et this result as reji l/abnormal. [facility] PlanoVwoavftGBYAJOEBJA4189-99-59 17:47:00 Test Item Value Reference Range Interpretation Comments Hep Bs Ag (test code Negative *NA*(01/21/21 = Hep Bs Ag) 12:47 PM) [facility] PlanoOmrix BiopharmaceuticalsAC [id number] 17:47:00 Test Item Value Reference Range Interpretation Comments BNP (test code = BNP) 2324 [facility] CuppleannCARDIAC [id number] 17:47:00 Test Item Value Reference Range Interpretation Comments Troponin-I (test code 0.02 See_Comment [Auto mated message] The = Troponin-I) system which g enerated this result transmit rohit reference range : <=0.40. The reference r leo was not used to interpr et this result as reji l/abnormal. [facility] PjlvstnVEUIOPYVDF1342-23-07 17:47:00 Test Item Value Reference Range Interpretation Comments Hep Bs Ag (test code Negative *NA*(01/21/21 = Hep Bs Ag) 12:47 PM) [facility] CuppleannCARDIAC [id number] 17:47:00 Test Item Value Reference Range Interpretation Comments BNP (test code = BNP) 2324 [facility] CuppleannAgent Video IntelligenceAC [id number] 17:47:00 Test Item Value Reference Range Interpretation Comments Troponin-I (test code 0.02 See_Comment [Auto mated message] The = Troponin-I) system which g enerated this result transmit rohit reference range : <=0.40. The reference r leo was not used to interpr et this result as reji l/abnormal. [facility] VrclhamXBPTOZAGFD7404-26-99 17:47:00 Test Item Value Reference Range Interpretation Comments Hep Bs Ag (test code Negative *NA*(01/21/21 = Hep Bs Ag) 12:47 PM) [facility] [employer] [id number] 17:43:00 Test Item Value Reference Range Interpretation Comments B/C Ratio (test code = B/C Ratio) 5 1 6-25 [facility] [employer] [id number] 17:43:00 Test Item Value Reference Range Interpretation Comments ALT (test code = ALT) 66 See_Comment [Auto mated message] The system which ge nerated this result transmit rohit reference range : <=65. The reference range was not used to interpr et this result as reji l/abnormal. AGELON ? [id number] 17:43:00 Test Item Value Reference Range Interpretation Comments Albumin Lvl (test code = Albumin Lvl) 3.0 3.5-5.0 [facility] [employer] [id number] 17:43:00 Test Item Value Reference Range Interpretation Comments Alk Phos (test code = Alk Phos) 40 39-136 [facility] [employer] [id number] 17:43:00 Test Item Value Reference Range Interpretation Comments Bili Total (test code = Bili Total) 0.5 0.2-1.3 [facility] [employer] [id number] 17:43:00 Test Item Value Reference Range Interpretation Comments Total Protein (test code = Total 5.7 6.4-8.4 Protein) [facility] [employer]2021-08-03 17:43:00 Test Item Value Reference Range Interpretation Comments AST (test code = AST) 52 See_Comment [Auto mated message] The system which ge nerated this result transmit rohit reference range : <=37. The reference range was not used to interpr et this result as reji l/abnormal. [facility] [employer] [id number] 17:43:00 Test Item Value Reference Range Interpretation Comments Globulin (test code = Globulin) 2.7 2.7-4.2 [facility] [employer] [id number] 17:43:00 Test Item Value Reference Range Interpretation Comments A/G Ratio (test code = A/G Ratio) 1.1 1 0.7-1.6 [facility] [employer] [id number] 17:43:00 Test Item Value Reference Range Interpretation Comments Lactic Acid Lvl (test code = Lactic 1.1 0.5-2.2 Acid Lvl) [facility] [id number] 17:43:00 Test Item Value Reference Range Interpretation Comments B/C Ratio (test code = B/C Ratio) 5 1 6-25 [facility] [id number] 17:43:00 Test Item Value Reference Range Interpretation Comments ALT (test code = ALT) 66 See_Comment [Auto mated message] The system which ge nerated this result transmit rohit reference range : <=65. The reference range was not used to interpr et this result as reji l/abnormal. [facility] [employer] [id number] 17:43:00 Test Item Value Reference Range Interpretation Comments Albumin Lvl (test code = Albumin Lvl) 3.0 3.5-5.0 [facility] [employer] [id number] 17:43:00 Test Item Value Reference Range Interpretation Comments Alk Phos (test code = Alk Phos) 40 39-136 [facility] [employer] [id number] 17:43:00 Test Item Value Reference Range Interpretation Comments Bili Total (test code = Bili Total) 0.5 0.2-1.3 [facility] [employer] [id number] 17:43:00 Test Item Value Reference Range Interpretation Comments Total Protein (test code = Total 5.7 6.4-8.4 Protein) [facility] [id number] 17:43:00 Test Item Value Reference Range Interpretation Comments AST (test code = AST) 52 See_Comment [Auto mated message] The system which ge nerated this result transmit rohit reference range : <=37. The reference range was not used to interpr et this result as reji l/abnormal. [facility] [employer] [id number] 17:43:00 Test Item Value Reference Range Interpretation Comments Globulin (test code = Globulin) 2.7 2.7-4.2 [facility] [employer] [id number] 17:43:00 Test Item Value Reference Range Interpretation Comments A/G Ratio (test code = A/G Ratio) 1.1 1 0.7-1.6 [facility] [employer] [id number] 17:43:00 Test Item Value Reference Range Interpretation Comments Lactic Acid Lvl (test code = Lactic 1.1 0.5-2.2 Acid Lvl) [facility] [id number] 17:43:00 Test Item Value Reference Range Interpretation Comments B/C Ratio (test code = B/C Ratio) 5 1 6-25 [facility] [id number] 17:43:00 Test Item Value Reference Range Interpretation Comments ALT (test code = ALT) 66 See_Comment [Auto mated message] The system which ge nerated this result transmit rohit reference range : <=65. The reference range was not used to interpr et this result as reji l/abnormal. [facility] [employer] [id number] 17:43:00 Test Item Value Reference Range Interpretation Comments Albumin Lvl (test code = Albumin Lvl) 3.0 3.5-5.0 [facility] [employer] [id number] 17:43:00 Test Item Value Reference Range Interpretation Comments Alk Phos (test code = Alk Phos) 40 39-136 [facility] [id number] 17:43:00 Test Item Value Reference Range Interpretation Comments Bili Total (test code = Bili Total) 0.5 0.2-1.3 [facility] [id number] 17:43:00 Test Item Value Reference Range Interpretation Comments Total Protein (test code = Total 5.7 6.4-8.4 Protein) [facility] [id number] 17:43:00 Test Item Value Reference Range Interpretation Comments AST (test code = AST) 52 See_Comment [Auto mated message] The system which ge nerated this result transmit rohit reference range : <=37. The reference range was not used to interpr et this result as reji l/abnormal. [facility] [id number] 17:43:00 Test Item Value Reference Range Interpretation Comments Globulin (test code = Globulin) 2.7 2.7-4.2 [facility] [employer] [id number] 17:43:00 Test Item Value Reference Range Interpretation Comments A/G Ratio (test code = A/G Ratio) 1.1 1 0.7-1.6 [facility] [id number] 17:43:00 Test Item Value Reference Range Interpretation Comments Lactic Acid Lvl (test code = Lactic 1.1 0.5-2.2 Acid Lvl) [facility] [id number] 17:43:00 Test Item Value Reference Range Interpretation Comments B/C Ratio (test code = B/C Ratio) 5 1 6-25 [facility] [id number] 17:43:00 Test Item Value Reference Range Interpretation Comments ALT (test code = ALT) 66 See_Comment [Auto mated message] The system which ge nerated this result transmit rohit reference range : <=65. The reference range was not used to interpr et this result as reji l/abnormal. [facility] [employer] [id number] 17:43:00 Test Item Value Reference Range Interpretation Comments Albumin Lvl (test code = Albumin Lvl) 3.0 3.5-5.0 [facility] [employer] [id number] 17:43:00 Test Item Value Reference Range Interpretation Comments Alk Phos (test code = Alk Phos) 40 39-136 [facility] [employer] [id number] 17:43:00 Test Item Value Reference Range Interpretation Comments Bili Total (test code = Bili Total) 0.5 0.2-1.3 [facility] [employer] [id number] 17:43:00 Test Item Value Reference Range Interpretation Comments Total Protein (test code = Total 5.7 6.4-8.4 Protein) [facility] [id number] 17:43:00 Test Item Value Reference Range Interpretation Comments AST (test code = AST) 52 See_Comment [Auto mated message] The system which ge nerated this result transmit rohit reference range : <=37. The reference range was not used to interpr et this result as reji l/abnormal. [facility] [employer] [id number] 17:43:00 Test Item Value Reference Range Interpretation Comments Globulin (test code = Globulin) 2.7 2.7-4.2 [facility] [employer] [id number] 17:43:00 Test Item Value Reference Range Interpretation Comments A/G Ratio (test code = A/G Ratio) 1.1 1 0.7-1.6 [facility] [id number] 17:43:00 Test Item Value Reference Range Interpretation Comments Lactic Acid Lvl (test code = Lactic 1.1 0.5-2.2 Acid Lvl) [facility] [id number] 17:43:00 Test Item Value Reference Range Interpretation Comments B/C Ratio (test code = B/C Ratio) 5 1 6-25 [facility] [id number] 17:43:00 Test Item Value Reference Range Interpretation Comments ALT (test code = ALT) 66 See_Comment [Auto mated message] The system which ge nerated this result transmit rohit reference range : <=65. The reference range was not used to interpr et this result as reji l/abnormal. [facility] [employer] [id number] 17:43:00 Test Item Value Reference Range Interpretation Comments Albumin Lvl (test code = Albumin Lvl) 3.0 3.5-5.0 [facility] [employer] [id number] 17:43:00 Test Item Value Reference Range Interpretation Comments Alk Phos (test code = Alk Phos) 40 39-136 [facility] [employer] [id number] 17:43:00 Test Item Value Reference Range Interpretation Comments Bili Total (test code = Bili Total) 0.5 0.2-1.3 [facility] [employer] [id number] 17:43:00 Test Item Value Reference Range Interpretation Comments Total Protein (test code = Total 5.7 6.4-8.4 Protein) [facility] [id number] 17:43:00 Test Item Value Reference Range Interpretation Comments AST (test code = AST) 52 See_Comment [Auto mated message] The system which ge nerated this result transmit rohit reference range : <=37. The reference range was not used to interpr et this result as reji l/abnormal. [facility] [employer] [id number] 17:43:00 Test Item Value Reference Range Interpretation Comments Globulin (test code = Globulin) 2.7 2.7-4.2 [facility] [employer] [id number] 17:43:00 Test Item Value Reference Range Interpretation Comments A/G Ratio (test code = A/G Ratio) 1.1 1 0.7-1.6 [facility] [employer] [id number] 17:43:00 Test Item Value Reference Range Interpretation Comments Lactic Acid Lvl (test code = Lactic 1.1 0.5-2.2 Acid Lvl) [facility] [employer] [id number] 16:20:00 Test Item Value Reference Range Interpretation Comments ABO/Rh (test code = ABO/Rh) B POS [facility] [employer] [id number] 16:20:00 Test Item Value Reference Range Interpretation Comments Antibody Scrn (test Negative (01/21/21 11:20 code = Antibody Scrn) AM) [facility] [id number] 16:20:00 Test Item Value Reference Range Interpretation Comments Anisocyte (test code = 1+ *ABN*(01/21/21 Anisocyte) 11:20 AM) [facility] [employer] [id number] 16:20:00 Test Item Value Reference Range Interpretation Comments ABO/Rh (test code = ABO/Rh) B POS [facility] [employer] [id number] 16:20:00 Test Item Value Reference Range Interpretation Comments Antibody Scrn (test Negative (01/21/21 11:20 code = Antibody Scrn) AM) [facility] [id number] 16:20:00 Test Item Value Reference Range Interpretation Comments Anisocyte (test code = 1+ *ABN*(01/21/21 Anisocyte) 11:20 AM) [facility] [employer] [id number] 16:20:00 Test Item Value Reference Range Interpretation Comments ABO/Rh (test code = ABO/Rh) B POS [facility] [employer] [id number] 16:20:00 Test Item Value Reference Range Interpretation Comments Antibody Scrn (test Negative (01/21/21 11:20 code = Antibody Scrn) AM) [id number] 16:20:00 Test Item Value Reference Range Interpretation Comments Anisocyte (test code = 1+ *ABN*(01/21/21 Anisocyte) 11:20 AM) [facility] [id number] 16:20:00 Test Item Value Reference Range Interpretation Comments ABO/Rh (test code = ABO/Rh) B POS [facility] [id number] 16:20:00 Test Item Value Reference Range Interpretation Comments Antibody Scrn (test Negative (01/21/21 11:20 code = Antibody Scrn) AM) [id number] 16:20:00 Test Item Value Reference Range Interpretation Comments Anisocyte (test code = 1+ *ABN*(01/21/21 Anisocyte) 11:20 AM) [facility] [id number] 16:20:00 Test Item Value Reference Range Interpretation Comments ABO/Rh (test code = ABO/Rh) B POS [facility] [id number] 16:20:00 Test Item Value Reference Range Interpretation Comments Antibody Scrn (test Negative (01/21/21 11:20 code = Antibody Scrn) AM) [id number] 16:20:00 Test Item Value Reference Range Interpretation Comments Anisocyte (test code = 1+ *ABN*(01/21/21 Anisocyte) 11:20 AM) [facility] [id number] 15:35:00 Test Item Value Reference Range Interpretation Comments Lactase Lvl (test code = Lactase Lvl) 2.0 [facility]ages[facility] [id number] 15:35:00 Test Item Value Reference Range Interpretation Comments Sucrase Lvl (test code = Sucrase Lvl) 38.6 [facility] [id number] 15:35:00 Test Item Value Reference Range Interpretation Comments Maltase Lvl (test code = Maltase Lvl) 177.2 [facility] [id number] 15:35:00 Test Item Value Reference Range Interpretation Comments Palatinase Lvl (test code = Palatinase 13.8 Lvl) [facility] [id number] 15:35:00 Test Item Value Reference Range Interpretation Comments Lactase Lvl (test code = Lactase Lvl) 2.0 [facility] [id number] 15:35:00 Test Item Value Reference Range Interpretation Comments Sucrase Lvl (test code = Sucrase Lvl) 38.6 [facility] [id number] 15:35:00 Test Item Value Reference Range Interpretation Comments Maltase Lvl (test code = Maltase Lvl) 177.2 [facility] [id number] 15:35:00 Test Item Value Reference Range Interpretation Comments Palatinase Lvl (test code = Palatinase 13.8 Lvl) [facility] [id number] 15:35:00 Test Item Value Reference Range Interpretation Comments Lactase Lvl (test code = Lactase Lvl) 2.0 [facility] [id number] 15:35:00 Test Item Value Reference Range Interpretation Comments Sucrase Lvl (test code = Sucrase Lvl) 38.6 [facility] [id number] 15:35:00 Test Item Value Reference Range Interpretation Comments Maltase Lvl (test code = Maltase Lvl) 177.2 [facility] [id number] 15:35:00 Test Item Value Reference Range Interpretation Comments Palatinase Lvl (test code = Palatinase 13.8 Lvl) [facility] [id number] 15:35:00 Test Item Value Reference Range Interpretation Comments Lactase Lvl (test code = Lactase Lvl) 2.0 [facility] [id number] 15:35:00 Test Item Value Reference Range Interpretation Comments Sucrase Lvl (test code = Sucrase Lvl) 38.6 [facility] [id number] 15:35:00 Test Item Value Reference Range Interpretation Comments Maltase Lvl (test code = Maltase Lvl) 177.2 [facility] [id number] 15:35:00 Test Item Value Reference Range Interpretation Comments Palatinase Lvl (test code = Palatinase 13.8 Lvl) [facility] [id number] 15:35:00 Test Item Value Reference Range Interpretation Comments Lactase Lvl (test code = Lactase Lvl) 2.0 [facility] [id number] 15:35:00 Test Item Value Reference Range Interpretation Comments Sucrase Lvl (test code = Sucrase Lvl) 38.6 [facility] [id number] 15:35:00 Test Item Value Reference Range Interpretation Comments Maltase Lvl (test code = Maltase Lvl) 177.2 [facility] [id number] 15:35:00 Test Item Value Reference Range Interpretation Comments Palatinase Lvl (test code = Palatinase 13.8 Lvl) [id number] 13:21:00 Test Item Value Reference Range Interpretation Comments Potassium WB (test code = Potassium WB) 5.1 3.5-5.1 [id number] 13:21:00 Test Item Value Reference Range Interpretation Comments S Preg (test code = S Negative 8*NA*(01/21/21 Preg) 8:21 AM) [facility] Hos[id number] 13:21:00 Test Item Value Reference Range Interpretation Comments Potassium WB (test code = Potassium WB) 5.1 3.5-5.1 [place] [id number] 13:21:00 Test Item Value Reference Range Interpretation Comments S Preg (test code = S Negative 8*NA*(01/21/21 Preg) 8:21 AM) [facility] Hos[id number] 13:21:00 Test Item Value Reference Range Interpretation Comments Potassium WB (test code = Potassium WB) 5.1 3.5-5.1 [place] [id number] 13:21:00 Test Item Value Reference Range Interpretation Comments S Preg (test code = S Negative 8*NA*(01/21/21 Preg) 8:21 AM) [facility] Hos[id number] 13:21:00 Test Item Value Reference Range Interpretation Comments Potassium WB (test code = Potassium WB) 5.1 3.5-5.1 [place] [id number] 13:21:00 Test Item Value Reference Range Interpretation Comments S Preg (test code = S Negative 8*NA*(01/21/21 Preg) 8:21 AM) [facility] Hos[id number] 13:21:00 Test Item Value Reference Range Interpretation Comments Potassium WB (test code = Potassium WB) 5.1 3.5-5.1 [place] [id number] 13:21:00 Test Item Value Reference Range Interpretation Comments S Preg (test code = S Negative 8*NA*(01/21/21 Preg) 8:21 AM) [id number] 11:19:00 Test Item Value Reference Range Interpretation Comments Coronavirus (COVID-19) Not Detected (01/21/21 EMANUEL (test code = 6:19 AM) Coronavirus (COVID-19) EMANUEL) [facility] H[id number] 11:19:00 Test Item Value Reference Range Interpretation Comments Coronavirus (COVID-19) Not Detected (01/21/21 EMANUEL (test code = 6:19 AM) Coronavirus (COVID-19) EMANUEL) [facility] H[id number] 11:19:00 Test Item Value Reference Range Interpretation Comments Coronavirus (COVID-19) Not Detected (01/21/21 EMANUEL (test code = 6:19 AM) Coronavirus (COVID-19) EMANUEL) [facility] H[id number] 11:19:00 Test Item Value Reference Range Interpretation Comments Coronavirus (COVID-19) Not Detected (01/21/21 EMANUEL (test code = 6:19 AM) Coronavirus (COVID-19) EMANUEL) [facility] Hospit[id number] 11:19:00 Test Item Value Reference Range Interpretation Comments Coronavirus (COVID-19) Not Detected (01/21/21 EMANUEL (test code = 6:19 AM) Coronavirus (COVID-19) EMANUEL) [facility]2020-08-12 16:39:05 Test Item Value Reference Range Interpretation Comments Glucose POC (test 183 mg/dL 70-115 H If you con cafeteria manager your code = Glucose POC) patient critically ill, the Merlin-Accu Check Infrom II meter should not be used for Glucose determination. Draw a venous Glucose and send to the main Lab for analysis. Urine [id number] 11:32:13 Test Item Value Reference Range Interpretation [...] Escherichia coli C Urine Added by [id number] [id number] 07:52:10 Test Item Value Reference Range Interpretation Comments Glucose POC (test 160 mg/dL 70-115 H If you con cafeteria manager your code = Glucose POC) patient critically ill, the Merlin-Accu Check Infrom II meter should not be used for Glucose determination. Draw a venous Glucose and send to the main Lab for analysis. POC [id number] 19:32:05 Test Item Value Reference Range Interpretation Comments Glucose POC (test 184 mg/dL 70-115 H If you con cafeteria manager your code = Glucose POC) patient critically ill, the Merlin-Accu Check Infrom II meter should not be used for Glucose determination. Draw a venous Glucose and send to the main Lab for analysis. POC [id number] 17:16:35 Test Item Value Reference Range Interpretation Comments Glucose POC (test 281 mg/dL 70-115 H Notify RN or MDIf you code = Glucose POC) consider your patient critically ill, the Merlin-Accu Chec k Infrom II meter should not be used for Glucos e determination. Draw a venous Glucose and send to the main Lab for analysis. POC [id number] 12:00:38 Test Item Value Reference Range Interpretation Comments Glucose POC (test 138 mg/dL 70-115 H Notify RN or MDIf you code = Glucose POC) consider your patient critically ill, the Merlin-Accu Chec k Infrom II meter should not be used for Glucos e determination. Draw a venous Glucose and send to the main Lab for analysis. POC [id number] 07:41:32 Test Item Value Reference Range Interpretation Comments Glucose POC (test 206 mg/dL 70-115 H Notify RN or MDIf you code = Glucose POC) consider your patient critically ill, the Merlin-Accu Chec k Infrom II meter should not be used for Glucos e determination. Draw a venous Glucose and send to the main Lab for analysis. Urinalysis [id number] 21:07:21 Test Item Value Reference Range Interpretation Comments UA WBC (test code = UA WBC) TNTC 0-5 A UA RBC (test code = UA RBC) 6-10 0-5 A UA Bacteria (test code = UA Bacteria) Profuse A UA Squam Epithelial (test code = UA 6-10 A Squam Epithelial) Urinalysis with Culture, if [id number] 20:35:14 Test Item Value Reference Range Interpretation [...] Micro Indicated Not Indicated A Ind?) POC [id number] 19:06:34 Test Item Value Reference Range Interpretation Comments Glucose POC (test 207 mg/dL 70-115 H If you con cafeteria manager your code = Glucose POC) patient critically ill, the Merlin-Accu Check Infrom II meter should not be used for Glucose determination. Draw a venous Glucose and send to the main Lab for analysis. POC [id number] 17:12:03 Test Item Value Reference Range Interpretation Comments Glucose POC (test 173 mg/dL 70-115 H Notify RN or MDIf you code = Glucose POC) consider your patient critically ill, the Merlin-Accu Chec k Infrom II meter should not be used for Glucos e determination. Draw a venous Glucose and send to the main Lab for analysis. POC [id number] 11:58:01 Test Item Value Reference Range Interpretation Comments Glucose POC (test 289 mg/dL 70-115 H Notify RN or MDIf you code = Glucose POC) consider your patient critically ill, the Merlin-Accu Chec k Infrom II meter should not be used for Glucos e determination. Draw a venous Glucose and send to the main Lab for analysis. POC [id number] 08:19:37 Test Item Value Reference Range Interpretation Comments Glucose POC (test 201 mg/dL 70-115 H Notify RN or MDIf you code = Glucose POC) consider your patient critically ill, the Merlin-Accu Chec k Infrom II meter should not be used for Glucos e determination. Draw a venous Glucose and send to the main Lab for analysis. POC [id number] 20:37:35 Test Item Value Reference Range Interpretation Comments Glucose POC (test 272 mg/dL 70-115 H If you con cafeteria manager your code = Glucose POC) patient critically ill, the Merlin-Accu Check Infrom II meter should not be used for Glucose determination. Draw a venous Glucose and send to the main Lab for analysis. POC Mvvqzcz4577-28-96 17:23:05 Test Item Value Reference Range Interpretation Comments Glucose POC (test 229 mg/dL 70-115 H If you con cafeteria manager your code = Glucose POC) patient critically ill, the Merlin-Accu Check Infrom II meter should not be used for Glucose determination. Draw a venous Glucose and send to the main Lab for analysis. POC [id number] 12:01:01 Test Item Value Reference Range Interpretation Comments Glucose POC (test 155 mg/dL 70-115 H If you con cafeteria manager your code = Glucose POC) patient critically ill, the Merlin-Accu Check Infrom II meter should not be used for Glucose determination. Draw a venous Glucose and send to the main Lab for analysis. POC [id number] 08:07:32 Test Item Value Reference Range Interpretation Comments Glucose POC (test 248 mg/dL 70-115 H If you con cafeteria manager your code = Glucose POC) patient critically ill, the Merlin-Accu Check Infrom II meter should not be used for Glucose determination. Draw a venous Glucose and send to the main Lab for analysis. IG [id number] 06:50:39 Test Item Value Reference Range Interpretation Comments IG (test code = IG) 0.7 % 0.0-5.0 IG Abs (test code = IG Abs) 0 x10 N Complete Blood Count with [id number] 06:50:38 Test Item Value Reference Range Interpretation [...] code = IPF) 0 % N Automated [id number] 06:50:38 Test Item Value Reference Range Interpretation Comments Neutro Auto (test code = Neutro 50.3 % 36.0-70.0 Auto) Lymph Auto (test code = Lymph Auto) 38.6 % 12.0-44.0 Sevier Auto (test code = Sevier Auto) 7.3 % 0.0-11.0 Eos, Auto (test code = Eos, Auto) 2.4 % 0.0-7.0 Basophil Auto (test code = Basophil 0.7 % 0.0-2.0 Auto) Neutro Absolute (test code = Neutro 3.0 x10 1.6-7.4 Absolute) Lymph Absolute (test code = Lymph 2.28 x10 .50-4.60 Absolute) Sevier Absolute (test code = Sevier .43 x10 .00-1.20 Absolute) Eos Absolute (test code = Eos 0.14 x10 0.00-0.74 Absolute) Baso Absolute (test code = Baso 0.04 x10 0.00-0.21 Absolute) Basic Metabolic [id number] 05:38:20 Test Item Value Reference Range Interpretation [...] = Lipemia) 0 mg/dL 8-11 Basic Metabolic [id number] 05:38:20 Test Item Value Reference Range Interpretation [...] [email or web address] Hemolysis (test code 0 mg/dL 811 = Hemolysis) Icterus (test code = 0 mg/dL 8-11 Icterus) Lipemia (test code = 0 mg/dL 8-11 Lipemia) Basic Metabolic [id number] 05:38:20 Test Item Value Reference Range Interpretation [...] code = 0 mg/dL 8-11 Lipemia) POC [id number] 20:28:33 Test Item Value Reference Range Interpretation Comments Glucose POC (test 169 mg/dL 70-115 H If you con cafeteria manager your code = Glucose POC) patient critically ill, the Merlin-Accu Check Infrom II meter should not be used for Glucose determination. Draw a venous Glucose and send to the main Lab for analysis. POC [id number] 16:39:30 Test Item Value Reference Range Interpretation Comments Glucose POC (test 103 mg/dL 70-115 If you con cafeteria manager your code = Glucose POC) patient critically ill, the Merlin-Accu Check Infrom II meter should not be used for Glucose determination. Draw a venous Glucose and send to the main Lab for analysis. RPR [id number] 12:08:56 Test Item Value Reference Range Interpretation Comments RPR Qual (test code = RPR Qual) Non-Reactive Non-Reactive Reactive Control (test code = Reactive Reactive Control) Weak Reactive Control (test Weak Reactive code = Weak Reactive Control) Non-Reactive Control (test code Non-Reactive = Non-Reactive Control) Lot # (test code = Lot #) [id number] N Expiration Dt (test code = 03-20-2021 N Expiration Dt) POC [id number] 11:52:31 Test Item Value Reference Range Interpretation Comments Glucose POC (test 250 mg/dL 70-115 H If you con cafeteria manager your code = Glucose POC) patient critically ill, the Merlin-Accu Check Infrom II meter should not be used for Glucose determination. Draw a venous Glucose and send to the main Lab for analysis. POC [id number] 07:55:29 Test Item Value Reference Range Interpretation Comments Glucose POC (test 205 mg/dL 70-115 H If you con cafeteria manager your code = Glucose POC) patient critically ill, the Merlin-Accu Check Infrom II meter should not be used for Glucose determination. Draw a venous Glucose and send to the main Lab for analysis. Lipid [id number] 05:46:04 Test Item Value Reference Range Interpretation [...] LDL/HDL Ratio=L DL Calc/HDL Chol Thyroid Stimulating [id number] 05:46:04 Test Item Value Reference Range Interpretation Comments TSH (test code = TSH) 3.274 mcIU/mL 0.550-4.780 Hemoglobin [id number] 05:41:08 Test Item Value Reference Range Interpretation Comments Hemoglobin A1c (test code 7.6 % 4.0-5.8 H Di abetic >=6.5 = Hemoglobin A1c) %Prediabet es 5.7-6.4 %Normal <5.7 % Hepatitis B Surface [id number] 21:19:36 Test Item Value Reference Range Interpretation Comments Hep Bs Ag (test code = Hep Bs Non-Reactive Non-Reactive Ag) Novel Coronavirus SARS-CoV-2, [id number] 11:16:16 Test Item Value Reference Range Interpretation [...] Emergency Use Authorization." Novel Coronavirus (COVID-19), EMANUEL [id number] 11:11:24TNPTest not sent and performed at [facility]Rapid was perfomed in Microbiology.Wrong covid test was ord ered.Urine DOA [id number] 00:17:49 Test Item Value Reference Range Interpretation [...] Propoxyphene Confirmation wi thin 7 days. Alcohol [id number] 00:17:29 Test Item Value Reference Range Interpretation Comments Ethanol Level 9.0 mg/dL N The pharmacolo gical (test code = response to blo od alcohol Ethanol Level) levels may va ry from individual to i ndividual. The fatal omkar ntration has been report ed to be >400 mg/dl. Comprehensive Metabolic [id number] 00:17:28 Test Item Value Reference Range Interpretation [...] = Lipemia) 0 g/dL 1-2 Comprehensive Metabolic [id number] 00:17:28 Test Item Value Reference Range Interpretation [...] = 0 g/dL 1-2 Lipemia) Comprehensive Metabolic [id number] 00:17:28 Test Item Value Reference Range Interpretation [...] have not been validated by [facility] MDRD study and should be interpreted wit [...] g/dL 1-2 Lipemia) Complete Blood Count with [id number] 23:26:28 Test Item Value Reference Range Interpretation [...] code = IPF) 0 % N Automated [id number] 23:26:28 Test Item Value Reference Range Interpretation Comments Neutro Auto (test code = Neutro 67.1 % 36.0-70.0 Auto) Lymph Auto (test code = Lymph Auto) 23.3 % 12.0-44.0 Sevier Auto (test code = Sevier Auto) 5.8 % 0.0-11.0 Eos, Auto (test code = Eos, Auto) 2.3 % 0.0-7.0 Basophil Auto (test code = Basophil 0.8 % 0.0-2.0 Auto) Neutro Absolute (test code = Neutro 6.0 x10 1.6-7.4 Absolute) Lymph Absolute (test code = Lymph 2.10 x10 .50-4.60 Absolute) Sevier Absolute (test code = Sevier .52 x10 .00-1.20 Absolute) Eos Absolute (test code = Eos 0.21 x10 0.00-0.74 Absolute) Baso Absolute (test code = Baso 0.07 x10 0.00-0.21 Absolute) IG [id number] 23:26:28 Test Item Value Reference Range Interpretation Comments IG (test code = IG) 0.7 % 0.0-5.0 IG Abs (test code = IG Abs) 0 x10 N HERPES VIRUS ANTIBODY, [id number] 21:46:00 Test Item Value Reference Range Interpretation Comments HERPES VIRUS IGM (BEAKER) Negative SE E ATTACHMENT (test code = 1808) BLOOD [id number] 06:00:00 Test Item Value Reference Range Interpretation Comments CULTURE (BEAKER) (test No growth in 5 days code = 1095) BLOOD [id number] 06:00:00 Test Item Value Reference Range Interpretation Comments CULTURE (BEAKER) (test No growth in 5 days code = 1095) POCT-GLUCOSE [id number] 12:11:00 Test Item Value Reference Range Interpretation Comments POC-GLUCOSE METER 154 mg/dL 70-110 H TESTED AT [place] [address] ([facility]) (test code = [place] [facility] 1538) [address] POCT-GLUCOSE [id number] 07:53:00 Test Item Value Reference Range Interpretation Comments POC-GLUCOSE METER 87 mg/dL 70-110 TESTED AT [place] [address] ([facility] [address] 1538) POCT-GLUCOSE [id number] 06:49:00 Test Item Value Reference Range Interpretation Comments POC-GLUCOSE METER 79 mg/dL 70-110 TESTED AT [place] [address] ([facility]) [facility] = [facility] [address] 1538) COMPREHENSIVE METABOLIC [id number] 06:15:00 Test Item Value Reference Range Interpretation [...] S NOT APPLICABLE FOR DIALYSIS PATIEN TS. [id number] 06:11:00 Test Item Value Reference Range Interpretation Comments MAGNESIUM (BEAKER) (test code = 2.1 mg/dL 1.6-2.6 627) HEPATIC FUNCTION [id number] 06:11:00 Test Item Value Reference Range Interpretation Comments TOTAL PROTEIN (BEAKER) (test code = 5.1 gm/dL 6.0-8.3 L 770) ALBUMIN (BEAKER) (test code = 1145) 2.2 g/dL 3.5-5.0 L BILIRUBIN TOTAL (BEAKER) (test code 1.1 mg/dL 0.2-1.2 = 377) BILIRUBIN DIRECT ([facility]) (test 0.7 mg/dL 0.1-0.5 H code = 706) ALKALINE PHOSPHATASE (BEAKER) (test 78 U/L 40-150 code = 346) AST (SGOT) (BEAKER) (test code = 256 U/L 5-34 H 353) ALT (SGPT) ([facility]) (test code = 513 U/L 6-55 H 347) [id number] 05:30:00 Test Item Value Reference Range Interpretation Comments FIBRINOGEN LEVEL (AKER) (test 368 mg/dl 225-434 code = 658) [id number] 05:30:00 Test Item Value Reference Range Interpretation Comments PARTIAL THROMBOPLASTIN TIME 42.2 seconds 22.5-36.0 H ([facility]) (test code = 760) PROTHROMBIN [id number] 05:29:00 Test Item Value Reference Range Interpretation Comments PROTIME ([facility]) (test code = 14.8 seconds 11.7-14.7 H 759) INR ([facility]) (test code = 370) 1.2 <=5.9 RECOMMENDED COUMADIN/WARFARIN INR THERAPY RANGESSTANDARD DOSE: 2.0 - 3.0 Includes: PROPHYLAXIS for venous thrombosis, systemic embolization; TREATMENT for venous thrombosis and/or pulmonary embolus.HIGH RISK: Target INR is 2.5-3.5 for patients with mechanical heart valves.POCT-GLUCOSE [id number] 21:09:00 Test Item Value Reference Range Interpretation Comments POC-GLUCOSE METER 178 mg/dL 70-110 H TESTED AT [place] [address] ([facility]) (test code = [place] 1538) [address] POCT-GLUCOSE [id number] 17:18:00 Test Item Value Reference Range Interpretation Comments POC-GLUCOSE METER 178 mg/dL 70-110 H TESTED AT [place] [address] ([facility]) (test code = [place] 1538) [address] POCT-GLUCOSE [id number] 13:48:00 Test Item Value Reference Range Interpretation Comments POC-GLUCOSE METER 150 mg/dL 70-110 H TESTED AT [place] [address] ([facility]) (test code = [place] 1538) [address] FACTOR 5 ACTIVITY (BLEEDING RISK)2017-01-06 10:04:00 Test Item Value Reference Range Interpretation Comments FACTOR V ACTIVITY (BEAKER) (test code 90.0 % 60.0-150.0 = 665) Effective 10/24/2013: Reference Range Change-Adult onlyNew: 60.0-150.0 Previous: 50.0-150.0CYTOMEGALOVIRUS ANTIBODY, [id number] 09:42:00 Test Item Value Reference Range Interpretation Comments CYTOMEGALOVIRUS IGM ANTIBODY Negative (BEAKER) (test code = 816) HERPES VIRUS ANTIBODY, [id number] 08:59:00 Test Item Value Reference Range Interpretation Comments 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 G 1807) CYTOMEGALOVIRUS ANTIBODY, [id number] 08:59:00 Test Item Value Reference Range Interpretation Comments CYTOMEGALOVIRUS IGG ANTIBODY Positive (BEAKER) (test code = 790) EBV-VCA ANTIBODY, [id number] 08:59:00 Test Item Value Reference Range Interpretation Comments JASE-WALL VCA IGG (BEAKER) (test Positive code = 983) EBV-VCA ANTIBODY, [id number] 08:59:00 Test Item Value Reference Range Interpretation Comments JASE-WALL VCA IGM (BEAKER) (test Negative code = 984) POCT-GLUCOSE [id number] 07:59:00 Test Item Value Reference Range Interpretation Comments POC-GLUCOSE METER 81 mg/dL 70-110 TESTED AT [facility] (test code = [place] [facility] [address] 1538) COMPREHENSIVE METABOLIC [id number] 06:23:00 Test Item Value Reference Range Interpretation [...] S NOT APPLICABLE FOR DIALYSIS PATIEN TS. [id number] 06:17:00 Test Item Value Reference Range Interpretation Comments MAGNESIUM (BEAKER) (test code = 1.8 mg/dL 1.6-2.6 627) HEPATIC FUNCTION [id number] 06:17:00 Test Item Value Reference Range Interpretation [...] code = 779 U/L 6-55 H 347) [id number] 06:00:00 Test Item Value Reference Range Interpretation Comments FIBRINOGEN LEVEL (BEAKER) (test 390 mg/dl 225-434 code = 658) [id number] 06:00:00 Test Item Value Reference Range Interpretation Comments PARTIAL THROMBOPLASTIN TIME 40.2 seconds 22.5-36.0 H ([facility]) (test code = 760) PROTHROMBIN [id number] 05:59:00 Test Item Value Reference Range Interpretation Comments PROTIME ([facility]) (test code = 14.6 seconds 11.7-14.7 759) INR ([facility]) (test code = 370) 1.2 <=5.9 RECOMMENDED COUMADIN/WARFARIN INR THERAPY RANGESSTANDARD DOSE: 2.0 - 3.0 Includes: PROPHYLAXIS for venous thrombosis, systemic embolization; TREATMENT for venous thrombosis and/or pulmonary embolus.HIGH RISK: Target INR is 2.5-3.5 for patients with mechanical heart valves.POCT-GLUCOSE [id number] 21:46:00 Test Item Value Reference Range Interpretation Comments POC-GLUCOSE METER 153 mg/dL 70-110 H TESTED AT [place] [address] ([facility]) [facility] 1538) [address] POCT-GLUCOSE [id number] 18:47:00 Test Item Value Reference Range Interpretation Comments POC-GLUCOSE METER 181 mg/dL 70-110 H TESTED AT [place] [address] ([facility]) ([facility] 1538) [address] POCT-GLUCOSE [id number] 12:40:00 Test Item Value Reference Range Interpretation Comments POC-GLUCOSE METER 178 mg/dL 70-110 H TESTED AT [place] [address] ([facility]) ([facility] 1538) [address] POCT-GLUCOSE [id number] 07:51:00 Test Item Value Reference Range Interpretation Comments POC-GLUCOSE METER 166 mg/dL 70-110 H TESTED AT [place] [address] ([facility]) (test code = [facility] Eduin [facility] 1538) [address] COMPREHENSIVE METABOLIC [id number] 03:26:00 Test Item Value Reference Range Interpretation Comments TOTAL PROTEIN 5.2 gm/dL 6.0-8.3 L ([facility]) (test code = 770) ALBUMIN ([facility]) 2.3 g/dL 3.5-5.0 L (test code = 1145) ALKALINE PHOSPHATASE 72 U/L 40-150 ([facility]) (test code = 346) BILIRUBIN TOTAL 2.0 [...] S NOT APPLICABLE FOR DIALYSIS PATIEN TS. [id number] 03:22:00 Test Item Value Reference Range Interpretation Comments MAGNESIUM (BEAKER) (test code = 1.4 mg/dL 1.6-2.6 L 627) HEPATIC FUNCTION [id number] 03:22:00 Test Item Value Reference Range Interpretation [...] code = 1009 U/L 6-55 H 347) [id number] 03:12:00 Test Item Value Reference Range Interpretation Comments AMMONIA (BEAKER) (test code = 348) 29 mol/L 18-72 [id number] 03:10:00 Test Item Value Reference Range Interpretation Comments PARTIAL THROMBOPLASTIN TIME 42.3 seconds 22.5-36.0 H (BEAKER) (test code = 760) PROTHROMBIN [id number] 03:09:00 Test Item Value Reference Range Interpretation Comments PROTIME (BEAKER) (test code = 16.4 seconds 11.7-14.7 H 759) INR (BEAKER) (test code = 370) 1.3 <=5.9 RECOMMENDED COUMADIN/WARFARIN INR THERAPY RANGESSTANDARD DOSE: 2.0 - 3.0 Includes: PROPHYLAXIS for venous thrombosis, systemic embolization; TREATMENT for venous thrombosis and/or pulmonary embolus.HIGH RISK: Target INR is 2.5-3.5 for patients with mechanical heart valves.[id number] 03:09:00 Test Item Value Reference Range Interpretation Comments FIBRINOGEN LEVEL (BEAKER) (test 413 mg/dl 225-434 code = 658) CBC W/PLT COUNT & AUTO [id number] 03:09:00 Test Item Value Reference Range Interpretation [...] L 0.00-0.20 (test code = 417) 0.00POCT-GLUCOSE [id number] 22:33:00 Test Item Value Reference Range Interpretation Comments POC-GLUCOSE METER 230 mg/dL 70-110 H TESTED AT [facility] 67 ([facility]) (test code = [facility] 1538) [address] POCT-GLUCOSE [id number] 18:17:00 Test Item Value Reference Range Interpretation Comments POC-GLUCOSE METER 222 mg/dL 70-110 H TESTED AT [facility] 6720 ([facility]) (test code = [facility] 1538) [address] COMPREHENSIVE METABOLIC [id number] 16:59:00 Test Item Value Reference Range Interpretation [...] PATIEN TS. PERIPHERAL BLOOD SMEAR - PATHOLOGIST [id number] 15:30:00 Test Item Value Reference Range Interpretation Comments RBC MORPHOLOGY Polychromasia (BEAKER) (test code = 2846) RBC MORPHOLOGY Anisocytosis (BEAKER) (test code = 95776) PERIPHERAL SMR REVIEW Cell counts confirmed (BEAKER) (test code = 264) [id number] Josefina Lara M.D. (BEAKER) (test code = (electronic signature) 5940) PROTHROMBIN [id number] 15:12:00 Test Item Value Reference Range Interpretation [...] Reference Range Interpretation Comments ANTI-NUCLEAR ANTIBODY (IVETTE) (4moms) Negative Negative (test code = 418) POCT-GLUCOSE [id number] 12:47:00 Test Item Value Reference Range Interpretation Comments POC-GLUCOSE METER 212 mg/dL 70-110 H TESTED AT [facility] 6720 (4moms) (test code = [place] 1538) [address] [id number] 12:34:00 Test Item Value Reference Range Interpretation Comments RPR SCREEN (4moms) (test code = Nonreactive Nonreactive 420) CLOSTRIDIUM DIFFICILE TOXIN [id number] 10:12:00 Test Item Value Reference Range Interpretation Comments CLOSTRIDIUM DIFFICILE TOXIN, PCR Not Detected Not Detected (4moms) (test code = 1525) This qualitative real-time [...] Reference Range Change-Adult onlyNew: 60.0-150.0 Previous: 50.0-150.0POCT-GLUCOSE [id number] 06:40:00 Test Item Value Reference Range Interpretation Comments POC-GLUCOSE METER 167 mg/dL 70-110 H TESTED AT [facility] 67[address] (AKER) (test code = [place] 1538) [address] COMPREHENSIVE METABOLIC [id number] 04:08:00 Test Item Value Reference Range Interpretation [...] ESTIM ATED GFR. Specimen slightly ictericHEPATIC FUNCTION [id number] 04:06:00 Test Item Value Reference Range Interpretation [...] 1091 U/L 6-55 H 347) Specimen slightly [id number] 04:01:00 Test Item Value Reference Range Interpretation Comments FIBRINOGEN LEVEL (BEAKER) (test 379 mg/dl 225-434 code = 658) [id number] 04:01:00 Test Item Value Reference Range Interpretation Comments PARTIAL THROMBOPLASTIN TIME 40.7 seconds 22.5-36.0 H (BEAKER) (test code = 760) PROTHROMBIN [id number] 04:00:00 Test Item Value Reference Range Interpretation [...] mechanical heart valves.CBC W/PLT COUNT & AUTO [id number] 03:56:00 Test Item Value Reference Range Interpretation [...] L 0.00-0.20 (test code = 417) 0.00POCT-GLUCOSE [id number] 00:19:00 Test Item Value Reference Range Interpretation Comments POC-GLUCOSE METER 159 mg/dL 70-110 H TESTED AT [facility] 6720 (BEAKER) (test code = [place] [facility] 1538) [address] POCT-GLUCOSE [id number] 18:56:00 Test Item Value Reference Range Interpretation Comments POC-GLUCOSE METER 192 mg/dL 70-110 H TESTED AT [facility] 6720 (BEAKER) (test code = [place] [facility] 1538) [address] COMPREHENSIVE METABOLIC [id number] 16:55:00 Test Item Value Reference Range Interpretation [...] CALCULATE ESTIM ATED GFR. Specimen slightly ictericPROTHROMBIN [id number] 16:37:00 Test Item Value Reference Range Interpretation Comments PROTIME (BEAKER) (test code = 20.9 seconds 11.7-14.7 H 759) INR (BEAKER) (test code = 370) 1.8 <=5.9 RECOMMENDED COUMADIN/WARFARIN INR THERAPY RANGESSTANDARD DOSE: 2.0 - 3.0 Includes: PROPHYLAXIS for venous thrombosis, systemic embolization; TREATMENT for venous thrombosis and/or pulmonary embolus.HIGH RISK: Target INR is 2.5-3.5 for patients with mechanical heart valves.HEPATITIS B SURFACE [id number] 14:05:00 Test Item Value Reference Range Interpretation Comments HEPATITIS B SURFACE ANTIBODY < mIU/mL <8.0 (BEAKER) (test code = 647) HEPATITIS B CORE ANTIBODY, [id number] 13:43:00 Test Item Value Reference Range Interpretation Comments HEPATITIS B CORE TOTAL ANTIBODY Nonreactive Nonreactive (BEAKER) (test code = 497) BLOOD GAS, [id number] 13:35:00 Test Item Value Reference Range Interpretation [...] code = 1819) 28.0 % URINALYSIS W/ [id number] 13:16:00 Test Item Value Reference Range Interpretation [...] 1584) SOURCE(BEAKER) (test code = Urine, [place] 4310) VITAMIN D, [id number] 13:14:00 Test Item Value Reference Range Interpretation Comments VITAMIN D 25-OH (BEAKER) (test code = < ng/mL 13.0-47.8 L 2764) ALPHA FETOPROTEIN (AFP), TUMOR [id number] 13:06:00 Test Item Value Reference Range Interpretation Comments ALPHA-FETOPROTEIN (BEAKER) (test code < ng/mL <10.0 = 1094) Effective 05/08/2014: Reference Range ChangeNew: <10.0 Previous: 0.0-8.0 HEMOGLOBIN [id number] 13:05:00 Test Item Value Reference Range Interpretation Comments HEMOGLOBIN A1C (BEAKER) (test code = 7.6 % 4.3-6.1 H 368) CARCINOEMBRYONIC ANTIGEN (CEA)2017-01-03 12:59:00 Test Item Value Reference Range Interpretation Comments CARCINOEMBRYONIC ANTIGEN (BEAKER) 2.0 ng/mL 0.0-5.0 (test code = 685) [id number] 12:59:00 Test Item Value Reference Range Interpretation Comments FERRITIN (BEAKER) (test code = 1841 ng/mL 5-275 H 361) Effective 05/08/2014: Reference Range ChangeNew: Male 5-275 Previous: Male 22- 322 Female 5-275 Female [id number] 12:58:00 Test Item Value Reference Range Interpretation Comments T4 TOTAL (BEAKER) (test code = 895) 4.5 ug/dL 4.9-11.7 L [id number] 12:58:00 Test Item Value Reference Range Interpretation Comments THYROID STIMULATING HORMONE 1.79 uIU/mL 0.35-4.94 (BEAKER) (test code = 772) [id number] 12:58:00 Test Item Value Reference Range Interpretation Comments T3 TOTAL (BEAKER) (test code = 656) 34 ng/dL 48-159 L Effective 05/08/2014: Reference Range ChangeNew: 48-159 Previous: 60-181CALCIUM, [id number] 12:47:00 Test Item Value Reference Range Interpretation Comments CALCIUM IONIZED (BEAKER) (test 1.05 mmol/L 1.12-1.27 L code = 698) PH, BLOOD (BEAKER) (test code = 7.43 1810) [id number] 12:42:00 Test Item Value Reference Range Interpretation [...] % 20-55 (test code = 2590) URIC [id number] 12:40:00 Test Item Value Reference Range Interpretation Comments URIC ACID (BEAKER) (test code = 16.0 mg/dL 2.6-7.2 H 773) Specimen slightly ictericLIPID [id number] 12:40:00 Test Item Value Reference Range Interpretation [...] 160-189 Very High >=190 Specimen slightly ictericBILIRUBIN, [id number] 12:40:00 Test Item Value Reference Range Interpretation Comments BILIRUBIN DIRECT (MADIE) (test 2.4 mg/dL 0.1-0.5 H code = 706) GAMMA GLUTAMYL TRANSFERASE (GGT)2017-01-03 12:40:00 Test Item Value Reference Range Interpretation Comments GAMMA GLUTAMYL TRANSFERASE (MADIE) 53 U/L 9-64 (test code = 364) Specimen slightly [id number] 12:39:00 Test Item Value Reference Range Interpretation Comments ETHANOL (MADIE) (test code = 400) < mg/dL <=10 SCREEN, [id number] 12:36:00 Test Item Value Reference Range Interpretation Comments TEST URINE (MADIE) (test Negative code = 583) POCT-GLUCOSE [id number] 12:34:00 Test Item Value Reference Range Interpretation Comments POC-GLUCOSE METER 189 mg/dL 70-110 H TESTED AT [facility] 6720 (MADIE) (test code = [place] 1538) [address] HIV-1 ANTIGEN WITH HIV-1/2 [id number] 11:58:00 Test Item Value Reference Range Interpretation Comments HIV-1 ANTIGEN WITH HIV 1\\T\\2 Nonreactive Nonreactive ANTIBODY (2) (MADIE) (test code = 2586) TROPONIN [id number] 09:44:00 Test Item Value Reference Range Interpretation [...] 0.0-4.9CK-MB Reference Range:<6.7 Normal6.7-10.0 Borderline>10.0 Abnormal ACETAMINOPHEN [id number] 08:31:00 Test Item Value Reference Range Interpretation Comments ACETAMINOPHEN LEVEL (BEAKER) (test < ug/mL 10.0-30.0 L code = 344) TROPONIN [id number] 05:53:00 Test Item Value Reference Range Interpretation [...] acute neurological disease, and persistent tachyarrhythmia.BASIC METABOLIC [id number] 05:53:00 Test Item Value Reference Range Interpretation [...] TO CALCULA TE ESTIMATED GFR. Specimen slightly [id number] 05:52:00 Test Item Value Reference Range Interpretation Comments PHOSPHORUS (BEAKER) (test code = 5.7 mg/dL 2.3-4.7 H 604) HEPATIC FUNCTION [id number] 05:52:00 Test Item Value Reference Range Interpretation [...] Specimen slightly ictericCREATINE KINASE (CK), TOTAL AND [id number] 05:52:00 Test Item Value Reference Range Interpretation Comments CREATINE KINASE TOTAL (BEAKER) 341 U/L 29-200 H (test code = 380) CREATINE KINASE-MB (BEAKER) (test 5.4 ng/mL 0.0-6.6 code = 750) CREATINE KINASE-MB INDEX (BEAKER) 1.6 % (test code = 395) Effective 05/08/2014: CK-MB Reference Range ChangeNew: 0.0-6.6 Previous: 0.0-4.9CK-MB Reference Range:<6.7 Normal6.7-10.0 Borderline>10.0 Abnormal CBC W/PLT COUNT & AUTO [id number] 05:48:00 Test Item Value Reference Range Interpretation [...] K/ L 0.00-0.20 (test code = 417) [id number] 05:09:00 Test Item Value Reference Range Interpretation Comments FIBRINOGEN LEVEL (BEAKER) (test 427 mg/dl 225-434 code = 658) [id number] 05:09:00 Test Item Value Reference Range Interpretation Comments PARTIAL THROMBOPLASTIN TIME 36.2 seconds 22.5-36.0 H (BEAKER) (test code = 760) PROTHROMBIN [id number]/[id number] 05:08:00 Test Item Value Reference Range Interpretation Comments PROTIME (BEAKER) (test code = 22.8 seconds 11.7-14.7 H 759) INR (BEAKER) (test code = 370) 2.0 <=5.9 RECOMMENDED COUMADIN/WARFARIN INR THERAPY RANGESSTANDARD DOSE: 2.0 - 3.0 Includes: PROPHYLAXIS for venous thrombosis, systemic embolization; TREATMENT for venous thrombosis and/or pulmonary embolus.HIGH RISK: Target INR is 2.5-3.5 for patients with mechanical heart valves.HEPATITIS PANEL, [id number] 03:40:00 Test Item Value Reference Range Interpretation Comments HEPATITIS A IGM ANTIBODY (BEAKER) Nonreactive Nonreactive (test code = 498) HEPATITIS B CORE IGM ANTIBODY Nonreactive Nonreactive (BEAKER) (test code = 645) HEPATITIS C ANTIBODY (BEAKER) Nonreactive Nonreactive (test code = 367) HEPATITIS B SURFACE ANTIGEN (2) Nonreactive Nonreactive (BEAKER) (test code = 2585) CREATININE, RANDOM [id number] 03:18:00 Test Item Value Reference Range Interpretation Comments CREATININE URINE (BEAKER) (test 118.7 mg/dL code = 375) Reference Range: No NormalsSODIUM, RANDOM [id number] 03:18:00 Test Item Value Reference Range Interpretation Comments SODIUM URINE (BEAKER) (test code = 60 meq/L 243) Reference Range: No NormalsUREA NITROGEN, RANDOM [id number] 03:18:00 Test Item Value Reference Range Interpretation Comments UREA NITROGEN URINE (BEAKER) (test 303 mg/dL code = 538) Reference Range: No [id number] 03:07:00 Test Item Value Reference Range Interpretation Comments AMMONIA (BEAKER) (test code = 348) 48 mol/L 18-72 V-[id number] 02:57:00 Test Item Value Reference Range Interpretation [...] within 95-100% range. URINALYSIS W/ REFLEX URINE [id number] 02:53:00 Test Item Value Reference Range Interpretation [...] = 514) SOURCE(BEAKER) (test code = 2795) [id number] 02:49:00 Test Item Value Reference Range Interpretation Comments PARTIAL THROMBOPLASTIN TIME 39.4 seconds 22.5-36.0 H (BEAKER) (test code = 760) PROTHROMBIN TIME/[id number] 02:48:00 Test Item Value Reference Range Interpretation Comments PROTIME (BEAKER) (test code = 22.0 seconds 11.7-14.7 H 759) INR (BEAKER) (test code = 370) 1.9 <=5.9 RECOMMENDED COUMADIN/WARFARIN INR THERAPY RANGESSTANDARD DOSE: 2.0 - 3.0 Includes: PROPHYLAXIS for venous thrombosis, systemic embolization; TREATMENT for venous thrombosis and/or pulmonary embolus.HIGH RISK: Target INR is 2.5-3.5 for patients with mechanical heart valves.[id number] 02:48:00 Test Item Value Reference Range Interpretation Comments FIBRINOGEN LEVEL (BEAKER) (test 421 mg/dl 225-434 code = 658) BLOOD GAS, [id number] 02:43:00 Test Item Value Reference Range Interpretation [...] 21.0 % CBC W/PLT COUNT & AUTO [id number] 02:43:00 Test Item Value Reference Range Interpretation [...] code = 417) 0.00LACTIC ACID, VENOUS, WHOLE [id number] 02:35:00 Test Item Value Reference Range Interpretation Comments LACTATE BLOOD VENOUS (2) (BEAKER) 0.8 mmol/L 0.5-2.2 (test code = 2872) Effective 10/23/2015: Units/Reference Range ChangeNew: 0.5-2.2 mmol/L Previous: 5- 20 mg/dLSpecimen slightly rbpoxcmHLHGTDGAUNUG4613-88-39 11:32:00 Test Item Value Reference Range Interpretation Comments AGAP (test code = AGAP) 14.6 10.0-20.0 [facility] HospitalDcpearaYXZUACPSHIBL4279-90-94 11:32:00 Test Item Value Reference Range Interpretation Comments eGFR (test code = eGFR) 33 [facility] HospitalJjyrxpzPGLNMROGFURF6364-13-70 11:32:00 Test Item Value Reference Range Interpretation Comments Calcium Lvl (test code = Calcium Lvl) 8.3 8.5-10.5 [facility] HospitalTumjivkDFUOXNOHCBTY8373-55-95 11:32:00 Test Item Value Reference Range Interpretation Comments Glucose Lvl (test code = Glucose Lvl) 81 70-99 [facility] HospitalQpnsfloRRRCTFDVRZTY9394-33-47 11:32:00 Test Item Value Reference Range Interpretation Comments Creatinine Lvl (test code = Creatinine 1.95 0.50-1.40 Lvl) [facility] HospitalQpenrlbXXEMTOYCVNTI1525-17-93 11:32:00 Test Item Value Reference Range Interpretation Comments BUN (test code = BUN) 55 7-22 [facility] HospitalAuoiknkIQODSYAGIAMG8867-72-23 11:32:00 Test Item Value Reference Range Interpretation Comments CO2 (test code = CO2) 19 24-32 [facility] HospitalByfdpfoWYDZYJVOJUWJ7946-16-63 11:32:00 Test Item Value Reference Range Interpretation Comments Chloride Lvl (test code = Chloride Lvl) 110 95-109 [facility] HospitalQrcrmshNOOSBQDLTWNP1945-40-85 11:32:00 Test Item Value Reference Range Interpretation Comments Sodium Lvl (test code = Sodium Lvl) 139 135-145 [facility] HospitalSoyymmtCOOPABNKNJZO5568-28-44 11:32:00 Test Item Value Reference Range Interpretation Comments Potassium Lvl (test code = Potassium 4.6 3.5-5.1 Lvl) [facility]ZrxoruhJZXLCZECKS8850-52-17 11:32:00 Test Item Value Reference Range Interpretation Comments Lymphocytes (test code = Lymphocytes) 30.4 20.0-40.0 [facility] HospitalUkvvughVCLGJRQPMQ2531-34-08 11:32:00 Test Item Value Reference Range Interpretation Comments Eosinophils (test code = 4.5 See_Comment [A utomated message] The Eosinophils) system which ge nerated this result tra nsmitted reference range : <=4.0. The reference r leo was not used to int erpret this result as normal/abnormal . [facility] HospitalGcwhsgpHEESNMKDAT6739-88-15 11:32:00 Test Item Value Reference Range Interpretation Comments Monocytes (test code = Monocytes) 13.7 2.0-12.0 [facility] HospitalHonjiltNHGCHNWOWT3166-40-42 11:32:00 Test Item Value Reference Range Interpretation Comments Segs-Bands # (test code = Segs-Bands #) 2.6 1.5-8.1 [facility] HospitalAcpaqucNGKFAYJZJX9797-41-72 11:32:00 Test Item Value Reference Range Interpretation Comments Basophils (test code = 0.7 See_Comment [Aut omated message] The Basophils) system which ge nerated this result tra nsmitted reference range : <=1.0. The reference r leo was not used to int erpret this result as normal/abnormal . [facility] HospitalVschutrQNHNIFRINC1211-72-20 11:32:00 Test Item Value Reference Range Interpretation Comments Monocytes # (test code 0.7 See_Comment [Aut omated message] The = Monocytes #) system which generated this result tra nsmitted reference range : <=0.8. The reference r leo was not used to int erpret this result as normal/abnormal . [facility] HospitalOqwtcvrLUSRBXJIMZ0582-41-71 11:32:00 Test Item Value Reference Range Interpretation Comments Lymphocytes # (test code = Lymphocytes 1.6 1.0-5.5 #) [facility] HospitalWwpvcfkAPQEZRIXQP6171-79-00 11:32:00 Test Item Value Reference Range Interpretation Comments Eosinophils # (test code 0.2 See_Comment [A utomated message] The = Eosinophils #) system ic h generated this result tra nsmitted reference range : <=0.5. The reference r leo was not used to int erpret this result as normal/abnormal . [facility] HospitalKutqaotATXAGXNAES9861-59-75 11:32:00 Test Item Value Reference Range Interpretation Comments Segs (test code = Segs) 50.7 45.0-75.0 [facility] HospitalJriuyqhNBMCIZTJDG5828-71-68 11:32:00 Test Item Value Reference Range Interpretation [...] iron deficiency anemia, and renal disease. CPT: 85748 [facility] HospitalDswwclyAFKHAVQOJA4385-53-66 11:32:00 Test Item Value Reference Range Interpretation Comments Hct (test code = Hct) 28.1 36.0-48.0 [facility] HospitalVvkiyreLLZQKRWJZS5891-67-36 11:32:00 Test Item Value Reference Range Interpretation Comments RBC (test code = RBC) 3.39 4.20-5.40 [facility] HospitalLhivylnFXCDADQPGZ2791-45-64 11:32:00 Test Item Value Reference Range Interpretation Comments Hgb (test code = Hgb) 8.9 12.0-16.0 [facility] HospitalVwmfvpjMUKAFABTBN9569-58-72 11:32:00 Test Item Value Reference Range Interpretation Comments WBC (test code = WBC) 5.1 3.7-10.4 [facility] HospitalBglppsxDMGAOBBVNM8064-07-04 11:32:00 Test Item Value Reference Range Interpretation Comments MPV (test code = MPV) 11.3 7.4-10.4 [facility] HospitalHgcehxyURGFQQBLLZ7358-92-78 11:32:00 Test Item Value Reference Range Interpretation Comments Platelet (test code = Platelet) 118 133-450 [facility] HospitalKepxjasSEXIXVHQBU5889-09-84 11:32:00 Test Item Value Reference Range Interpretation Comments MCHC (test code = MCHC) 31.8 32.0-36.0 [facility] HospitalOywhtcyVBSTYOWBWK9270-56-54 11:32:00 Test Item Value Reference Range Interpretation Comments RDW (test code = RDW) 18.0 11.5-14.5 [facility] HospitalOuowhgdIQOJNTEDLO6831-35-39 11:32:00 Test Item Value Reference Range Interpretation Comments MCV (test code = MCV) 83.0 80.0-98.0 [facility] HospitalKquyjvcBVCVQODVZQ0564-01-69 11:32:00 Test Item Value Reference Range Interpretation Comments MCH (test code = MCH) 26.4 pg 27.0-31.0 [facility]aleMsnedojMMUPBCVAJS1641-11-91 11:32:00 Test Item Value Reference Range Interpretation Comments C3 Complement (test code = C3 137 88-201 Complement) [facility]aleBksipvuEFAQADZPKJ4330-81-89 11:32:00 Test Item Value Reference Range Interpretation Comments HIV. (test code = Negative *NA*(07/30/16 HIV.) 5:32 AM) [facility] HospitalIkenexlTAGKVIIXISOP5026-35-09 11:32:00 Test Item Value Reference Range Interpretation Comments AGAP (test code = AGAP) 14.6 10.0-20.0 [facility] HospitalVztigrhWDPLWWNQLABN2389-11-88 11:32:00 Test Item Value Reference Range Interpretation Comments eGFR (test code = eGFR) 33 [facility] HospitalYbloqoiLYRNRIJAGBKJ7770-70-03 11:32:00 Test Item Value Reference Range Interpretation Comments Calcium Lvl (test code = Calcium Lvl) 8.3 8.5-10.5 [facility] HospitalQwcxrqnDYZOZSBWOMCX2596-43-71 11:32:00 Test Item Value Reference Range Interpretation Comments Glucose Lvl (test code = Glucose Lvl) 81 70-99 [facility] HospitalLnovqfyVNYHFPJSWMAK1494-80-18 11:32:00 Test Item Value Reference Range Interpretation Comments Creatinine Lvl (test code = Creatinine 1.95 0.50-1.40 Lvl) [facility] HospitalTuvnhytYNZLQYOOORUG3306-81-05 11:32:00 Test Item Value Reference Range Interpretation Comments BUN (test code = BUN) 55 7-22 [facility] HospitalNaczuhhAQFMFMBWCABA7819-90-55 11:32:00 Test Item Value Reference Range Interpretation Comments CO2 (test code = CO2) 19 24-32 [facility] HospitalTpefyxwKVQAOGIKZTHA5083-94-27 11:32:00 Test Item Value Reference Range Interpretation Comments Chloride Lvl (test code = Chloride Lvl) 110 95-109 [facility] HospitalJdbqceuYHYBLCAXXJFC8515-55-29 11:32:00 Test Item Value Reference Range Interpretation Comments Sodium Lvl (test code = Sodium Lvl) 139 135-145 [facility] HospitalIptoczdXVFDGQCKPCXC1808-68-42 11:32:00 Test Item Value Reference Range Interpretation Comments Potassium Lvl (test code = Potassium 4.6 3.5-5.1 Lvl) [facility]aleNuqoieeLEDRYVGHRX8352-89-16 11:32:00 Test Item Value Reference Range Interpretation Comments Lymphocytes (test code = Lymphocytes) 30.4 20.0-40.0 [facility] HospitalYdpjumtINWAEVHLBX9431-81-13 11:32:00 Test Item Value Reference Range Interpretation Comments Eosinophils (test code = 4.5 See_Comment [A utomated message] The Eosinophils) system which ge nerated this result tra nsmitted reference range : <=4.0. The reference r leo was not used to int erpret this result as normal/abnormal . [facility] HospitalYqohfreWSFSIWZERD6040-35-56 11:32:00 Test Item Value Reference Range Interpretation Comments Monocytes (test code = Monocytes) 13.7 2.0-12.0 [facility] HospitalZxlbkgzVFOXXKYNKH3133-66-47 11:32:00 Test Item Value Reference Range Interpretation Comments Segs-Bands # (test code = Segs-Bands #) 2.6 1.5-8.1 [facility] HospitalClilfogXNEXLNTALJ6412-21-23 11:32:00 Test Item Value Reference Range Interpretation Comments Basophils (test code = 0.7 See_Comment [Aut omated message] The Basophils) system which ge nerated this result tra nsmitted reference range : <=1.0. The reference r leo was not used to int erpret this result as normal/abnormal . [facility] HospitalDratovhQKEORQBNRW9505-47-72 11:32:00 Test Item Value Reference Range Interpretation Comments Monocytes # (test code 0.7 See_Comment [Aut omated message] The = Monocytes #) system which generated this result tra nsmitted reference range : <=0.8. The reference r leo was not used to int erpret this result as normal/abnormal . [facility] HospitalTztedumNZBBUUWFRQ2913-07-24 11:32:00 Test Item Value Reference Range Interpretation Comments Lymphocytes # (test code = Lymphocytes 1.6 1.0-5.5 #) [facility] HospitalCicuhgaMRQZYMDUWO6166-73-79 11:32:00 Test Item Value Reference Range Interpretation Comments Eosinophils # (test code 0.2 See_Comment [A utomated message] The = Eosinophils #) system ic h generated this result tra nsmitted reference range : <=0.5. The reference r leo was not used to int erpret this result as normal/abnormal . [facility] HospitalOxqavgwZOKUVKNDLE2435-83-54 11:32:00 Test Item Value Reference Range Interpretation Comments Segs (test code = Segs) 50.7 45.0-75.0 [facility] HospitalTvptrjsOOIOBXAEAF1451-53-26 11:32:00 Test Item Value Reference Range Interpretation [...] iron deficiency anemia, and renal disease. CPT: 03350 [facility] HospitalVhuhzxfCZIOUGDRJQ7476-70-62 11:32:00 Test Item Value Reference Range Interpretation Comments Hct (test code = Hct) 28.1 36.0-48.0 [facility] HospitalQtdbygpCNHMJWVGRV4551-47-51 11:32:00 Test Item Value Reference Range Interpretation Comments RBC (test code = RBC) 3.39 4.20-5.40 [facility] HospitalGjyrljqZEPAGIXJKN1480-57-57 11:32:00 Test Item Value Reference Range Interpretation Comments Hgb (test code = Hgb) 8.9 12.0-16.0 [facility] HospitalEpnbyegEPTYNCSTXD0274-17-02 11:32:00 Test Item Value Reference Range Interpretation Comments WBC (test code = WBC) 5.1 3.7-10.4 [facility] HospitalYrfxsimKMMOCRLDWC9863-28-99 11:32:00 Test Item Value Reference Range Interpretation Comments MPV (test code = MPV) 11.3 7.4-10.4 [facility] HospitalVvokfrzKAOKAWOATY8982-05-87 11:32:00 Test Item Value Reference Range Interpretation Comments Platelet (test code = Platelet) 118 133-450 [facility] HospitalFuabvppJXEURQJPIW7644-76-08 11:32:00 Test Item Value Reference Range Interpretation Comments MCHC (test code = MCHC) 31.8 32.0-36.0 [facility] HospitalRjrfrnjDACVRWBKSI3013-17-22 11:32:00 Test Item Value Reference Range Interpretation Comments RDW (test code = RDW) 18.0 11.5-14.5 [facility] HospitalOodaljxYCBTARIDQY1687-13-28 11:32:00 Test Item Value Reference Range Interpretation Comments MCV (test code = MCV) 83.0 80.0-98.0 [facility] HospitalMrxvflvUGFWTEBHMH0103-33-33 11:32:00 Test Item Value Reference Range Interpretation Comments MCH (test code = MCH) 26.4 pg 27.0-31.0 [facility]ZqzcrexHZYHQCHEQB4327-23-28 11:32:00 Test Item Value Reference Range Interpretation Comments C3 Complement (test code = C3 137 88-201 Complement) [facility] HospitalLepydsbAAQDXQKPNI9717-52-14 11:32:00 Test Item Value Reference Range Interpretation Comments HIV. (test code = Negative *NA*(07/30/16 HIV.) 5:32 AM) [facility] HospitalFwqfmubZITCAWGAWOIB2886-26-69 11:32:00 Test Item Value Reference Range Interpretation Comments AGAP (test code = AGAP) 14.6 10.0-20.0 [facility] HospitalXufuqryXJSJYQRUKEAZ7782-10-85 11:32:00 Test Item Value Reference Range Interpretation Comments eGFR (test code = eGFR) 33 [facility] HospitalIedqhrzLNMZARWCYEQE2070-88-16 11:32:00 Test Item Value Reference Range Interpretation Comments Calcium Lvl (test code = Calcium Lvl) 8.3 8.5-10.5 [facility] HospitalMjnmtbiGSIFUUEIQJBZ9300-11-60 11:32:00 Test Item Value Reference Range Interpretation Comments Glucose Lvl (test code = Glucose Lvl) 81 70-99 [facility] HospitalHkezdhmZUABWXZZFNJU0085-42-97 11:32:00 Test Item Value Reference Range Interpretation Comments Creatinine Lvl (test code = Creatinine 1.95 0.50-1.40 Lvl) [facility] HospitalLwaukxbGLKDUPLZJKXU0699-19-07 11:32:00 Test Item Value Reference Range Interpretation Comments BUN (test code = BUN) 55 7-22 [facility] HospitalUqqtuyzEZBUKEPWOHXR1386-90-03 11:32:00 Test Item Value Reference Range Interpretation Comments CO2 (test code = CO2) 19 24-32 [facility] HospitalTlxsyuxPKRCPWSZDUUI5730-57-78 11:32:00 Test Item Value Reference Range Interpretation Comments Chloride Lvl (test code = Chloride Lvl) 110 95-109 [facility] HospitalRcbotjuVPDGRMCMLVVM3520-87-16 11:32:00 Test Item Value Reference Range Interpretation Comments Sodium Lvl (test code = Sodium Lvl) 139 135-145 [facility] HospitalQuemeatQKGFVABRBRDX9000-94-91 11:32:00 Test Item Value Reference Range Interpretation Comments Potassium Lvl (test code = Potassium 4.6 3.5-5.1 Lvl) [facility] HospitalAzypussZPKIVODQWT5438-96-41 11:32:00 Test Item Value Reference Range Interpretation Comments Lymphocytes (test code = Lymphocytes) 30.4 20.0-40.0 [facility] HospitalQvjhqwtVXSVFNSGFO7222-35-13 11:32:00 Test Item Value Reference Range Interpretation Comments Eosinophils (test code = 4.5 See_Comment [A utomated message] The Eosinophils) system which ge nerated this result tra nsmitted reference range : <=4.0. The reference r leo was not used to int erpret this result as normal/abnormal . [facility] HospitalYnhtqguEUSMRYJQSD1857-68-24 11:32:00 Test Item Value Reference Range Interpretation Comments Monocytes (test code = Monocytes) 13.7 2.0-12.0 [facility] HospitalVyqvjlcMUEDGZOYXL5636-65-80 11:32:00 Test Item Value Reference Range Interpretation Comments Segs-Bands # (test code = Segs-Bands #) 2.6 1.5-8.1 [facility] HospitalVehxrukGTTRTMTBQY6548-37-40 11:32:00 Test Item Value Reference Range Interpretation Comments Basophils (test code = 0.7 See_Comment [Aut omated message] The Basophils) system which ge nerated this result tra nsmitted reference range : <=1.0. The reference r leo was not used to int erpret this result as normal/abnormal . [facility] HospitalWgniisuKQVKUZBSQR2565-45-87 11:32:00 Test Item Value Reference Range Interpretation Comments Monocytes # (test code 0.7 See_Comment [Aut omated message] The = Monocytes #) system which generated this result tra nsmitted reference range : <=0.8. The reference r leo was not used to int erpret this result as normal/abnormal . [facility] HospitalIdfadzjDOWOICNRNJ9735-18-43 11:32:00 Test Item Value Reference Range Interpretation Comments Lymphocytes # (test code = Lymphocytes 1.6 1.0-5.5 #) [facility] HospitalBbvanlyTSTCDQJSPC7213-66-34 11:32:00 Test Item Value Reference Range Interpretation Comments Eosinophils # (test code 0.2 See_Comment [A utomated message] The = Eosinophils #) system whic h generated this result tra nsmitted reference range : <=0.5. The reference r leo was not used to int erpret this result as normal/abnormal . [facility] HospitalGgskdbmABHAPXFKPA9600-16-37 11:32:00 Test Item Value Reference Range Interpretation Comments Segs (test code = Segs) 50.7 45.0-75.0 [facility] HospitalQlwtcaoKLMDSGMXGB9172-99-70 11:32:00 Test Item Value Reference Range Interpretation [...] iron deficiency anemia, and renal disease. CPT: 53290 [facility] HospitalWhdnhbqPRGUMXFYVU5639-92-84 11:32:00 Test Item Value Reference Range Interpretation Comments Hct (test code = Hct) 28.1 36.0-48.0 [facility] HospitalKbhbplwOTTDEDJJJJ0181-18-50 11:32:00 Test Item Value Reference Range Interpretation Comments RBC (test code = RBC) 3.39 4.20-5.40 [facility] HospitalQshmxzgBVSCHEJIFT2719-26-66 11:32:00 Test Item Value Reference Range Interpretation Comments Hgb (test code = Hgb) 8.9 12.0-16.0 [facility] HospitalNqhylifKXTFFSYNFY0390-30-07 11:32:00 Test Item Value Reference Range Interpretation Comments WBC (test code = WBC) 5.1 3.7-10.4 [facility] HospitalVtimvxjDRPNVNPUIS4908-07-63 11:32:00 Test Item Value Reference Range Interpretation Comments MPV (test code = MPV) 11.3 7.4-10.4 [facility] HospitalStjrzfnYFIXCKCSBJ3338-82-46 11:32:00 Test Item Value Reference Range Interpretation Comments Platelet (test code = Platelet) 118 133-450 [facility] HospitalBsjwywqKDMZCZECPN3708-69-36 11:32:00 Test Item Value Reference Range Interpretation Comments MCHC (test code = MCHC) 31.8 32.0-36.0 [facility] HospitalLlsopiwWYOIMNUTTT4799-59-15 11:32:00 Test Item Value Reference Range Interpretation Comments RDW (test code = RDW) 18.0 11.5-14.5 [facility] HospitalGfgktubUPQJICSGRD4024-97-87 11:32:00 Test Item Value Reference Range Interpretation Comments MCV (test code = MCV) 83.0 80.0-98.0 [facility]aleVfypsrhUJDSGQFAMW2233-39-10 11:32:00 Test Item Value Reference Range Interpretation Comments MCH (test code = MCH) 26.4 pg 27.0-31.0 [facility]aleKvhcfotECCWXMMVZC1222-43-51 11:32:00 Test Item Value Reference Range Interpretation Comments C3 Complement (test code = C3 137 88-201 Complement) [facility] HospitalDhbmbywWCNPIGEJQE9727-34-00 11:32:00 Test Item Value Reference Range Interpretation Comments HIV. (test code = Negative *NA*(07/30/16 HIV.) 5:32 AM) [facility] HospitalKyghjjwJEENYRQMHRLO2049-28-45 11:32:00 Test Item Value Reference Range Interpretation Comments AGAP (test code = AGAP) 14.6 10.0-20.0 [facility] HospitalZmgaesaZOKNDCSIMKMP0201-66-32 11:32:00 Test Item Value Reference Range Interpretation Comments eGFR (test code = eGFR) 33 [facility] HospitalPgrrmlgRRNSHYJDMAXV1219-93-03 11:32:00 Test Item Value Reference Range Interpretation Comments Calcium Lvl (test code = Calcium Lvl) 8.3 8.5-10.5 [facility] HospitalJvxfcsjCHLWKXABELQE7956-24-61 11:32:00 Test Item Value Reference Range Interpretation Comments Glucose Lvl (test code = Glucose Lvl) 81 70-99 [facility] HospitalDojmkjjOKLPJWAWCJLH4428-04-38 11:32:00 Test Item Value Reference Range Interpretation Comments Creatinine Lvl (test code = Creatinine 1.95 0.50-1.40 Lvl) [facility] HospitalAeloaghVCPLSEHSQDFV2795-77-40 11:32:00 Test Item Value Reference Range Interpretation Comments BUN (test code = BUN) 55 7-22 [facility] HospitalAnylrnmTJZXGJGAGMUO8231-57-62 11:32:00 Test Item Value Reference Range Interpretation Comments CO2 (test code = CO2) 19 24-32 [facility] HospitalEyrrdmgJNHHOQGUFICV2578-18-66 11:32:00 Test Item Value Reference Range Interpretation Comments Chloride Lvl (test code = Chloride Lvl) 110 95-109 [facility] HospitalIxvvokwOELKEOHJAAMI1858-43-38 11:32:00 Test Item Value Reference Range Interpretation Comments Sodium Lvl (test code = Sodium Lvl) 139 135-145 [facility]anoSegoiupHINTDQSLAHLW3886-08-12 11:32:00 Test Item Value Reference Range Interpretation Comments Potassium Lvl (test code = Potassium 4.6 3.5-5.1 Lvl) [facility] HospitalLsyfxyiZKUUXBEGTC3141-80-07 11:32:00 Test Item Value Reference Range Interpretation Comments Lymphocytes (test code = Lymphocytes) 30.4 20.0-40.0 [facility] HospitalLibvamjWKQODHRDHU4216-11-43 11:32:00 Test Item Value Reference Range Interpretation Comments Eosinophils (test code = 4.5 See_Comment [A utomated message] The Eosinophils) system which ge nerated this result tra nsmitted reference range : <=4.0. The reference r leo was not used to int erpret this result as normal/abnormal . [facility] HospitalGfqpyydARLRITYTCJ5118-21-80 11:32:00 Test Item Value Reference Range Interpretation Comments Monocytes (test code = Monocytes) 13.7 2.0-12.0 [facility] HospitalMnzxccbJGNLXDBVLC3601-74-58 11:32:00 Test Item Value Reference Range Interpretation Comments Segs-Bands # (test code = Segs-Bands #) 2.6 1.5-8.1 [facility] HospitalZhkreudSRNELNBCQK7857-45-02 11:32:00 Test Item Value Reference Range Interpretation Comments Basophils (test code = 0.7 See_Comment [Aut omated message] The Basophils) system which ge nerated this result tra nsmitted reference range : <=1.0. The reference r leo was not used to int erpret this result as normal/abnormal . [facility] HospitalFrzuhwaITKVUZAJJJ8367-10-22 11:32:00 Test Item Value Reference Range Interpretation Comments Monocytes # (test code 0.7 See_Comment [Aut omated message] The = Monocytes #) system which generated this result tra nsmitted reference range : <=0.8. The reference r leo was not used to int erpret this result as normal/abnormal . [facility] HospitalQoxbshrYXNOOKWLWD4119-01-72 11:32:00 Test Item Value Reference Range Interpretation Comments Lymphocytes # (test code = Lymphocytes 1.6 1.0-5.5 #) [facility] HospitalQsfugpuGXEBVSHAAD9239-70-15 11:32:00 Test Item Value Reference Range Interpretation Comments Eosinophils # (test code 0.2 See_Comment [A utomated message] The = Eosinophils #) system whic h generated this result tra nsmitted reference range : <=0.5. The reference r leo was not used to int erpret this result as normal/abnormal . [facility] HospitalYxbtljiGMZMTGZACR1772-56-20 11:32:00 Test Item Value Reference Range Interpretation Comments Segs (test code = Segs) 50.7 45.0-75.0 [facility] HospitalHrgvxceAFBMVNAVXM1128-03-03 11:32:00 Test Item Value Reference Range Interpretation [...] iron deficiency anemia, and renal disease. CPT: 95281 [facility] HospitalVcpuxapBLOQWEEQAC9701-18-95 11:32:00 Test Item Value Reference Range Interpretation Comments Hct (test code = Hct) 28.1 36.0-48.0 [facility] HospitalBjwzmeqHPRFBNFSNE0973-23-01 11:32:00 Test Item Value Reference Range Interpretation Comments RBC (test code = RBC) 3.39 4.20-5.40 [facility] HospitalIlsgqckTSHQXVOKNE4931-18-01 11:32:00 Test Item Value Reference Range Interpretation Comments Hgb (test code = Hgb) 8.9 12.0-16.0 [facility] HospitalAzjzkekYSUJIZCFCX8720-14-52 11:32:00 Test Item Value Reference Range Interpretation Comments WBC (test code = WBC) 5.1 3.7-10.4 [facility] HospitalStgssukWPZPYJCWRG1968-25-20 11:32:00 Test Item Value Reference Range Interpretation Comments MPV (test code = MPV) 11.3 7.4-10.4 [facility] HospitalLuyeytyUXAKEDSMJH8881-99-57 11:32:00 Test Item Value Reference Range Interpretation Comments Platelet (test code = Platelet) 118 133-450 [facility] HospitalHrkxbojEXPBJGFGNW8999-21-88 11:32:00 Test Item Value Reference Range Interpretation Comments MCHC (test code = MCHC) 31.8 32.0-36.0 [facility] HospitalUiwyzhrOTUUIEPHMM5779-09-65 11:32:00 Test Item Value Reference Range Interpretation Comments RDW (test code = RDW) 18.0 11.5-14.5 [facility] HospitalMriauvlPATRPZMSXT1920-35-43 11:32:00 Test Item Value Reference Range Interpretation Comments MCV (test code = MCV) 83.0 80.0-98.0 [facility] HospitalOorxbhnCESMEGYVLE4244-29-68 11:32:00 Test Item Value Reference Range Interpretation Comments MCH (test code = MCH) 26.4 pg 27.0-31.0 [facility]AexmpyeULBPESKHUE4964-84-69 11:32:00 Test Item Value Reference Range Interpretation Comments C3 Complement (test code = C3 137 88-201 Complement) [facility] HospitalWuyfoqyXYQOHAUQXT7970-76-07 11:32:00 Test Item Value Reference Range Interpretation Comments HIV. (test code = Negative *NA*(07/30/16 HIV.) 5:32 AM) [facility]NipwxqpAFENJQXLLTNP0353-70-76 11:32:00 Test Item Value Reference Range Interpretation Comments AGAP (test code = AGAP) 14.6 10.0-20.0 [facility] HospitalFcigazfFSHHFFBEHSJS6172-63-91 11:32:00 Test Item Value Reference Range Interpretation Comments eGFR (test code = eGFR) 33 [facility] HospitalJogixvwOQTOQAJRTDVC4853-08-38 11:32:00 Test Item Value Reference Range Interpretation Comments Calcium Lvl (test code = Calcium Lvl) 8.3 8.5-10.5 [facility] HospitalChpshuyJFALHUOJBUFG5213-89-99 11:32:00 Test Item Value Reference Range Interpretation Comments Glucose Lvl (test code = Glucose Lvl) 81 70-99 [facility] HospitalWyrohqcRAOSXFOVVURP5030-89-87 11:32:00 Test Item Value Reference Range Interpretation Comments Creatinine Lvl (test code = Creatinine 1.95 0.50-1.40 Lvl) [facility] HospitalHemmluyRFYQCEERZPBJ6758-81-53 11:32:00 Test Item Value Reference Range Interpretation Comments BUN (test code = BUN) 55 7-22 [facility] HospitalMkvrsykDVGNTKELQPZW3288-89-70 11:32:00 Test Item Value Reference Range Interpretation Comments CO2 (test code = CO2) 19 24-32 [facility] HospitalVimlnipSVOXTOHIIKVC9155-53-79 11:32:00 Test Item Value Reference Range Interpretation Comments Chloride Lvl (test code = Chloride Lvl) 110 95-109 [facility] HospitalXgefyovHLQUIBDYXRWB0270-02-39 11:32:00 Test Item Value Reference Range Interpretation Comments Sodium Lvl (test code = Sodium Lvl) 139 135-145 [facility] HospitalPcpliztQFFNKTVLBISI8923-77-13 11:32:00 Test Item Value Reference Range Interpretation Comments Potassium Lvl (test code = Potassium 4.6 3.5-5.1 Lvl) [facility] HospitalPmugtdrNDVCOKHWKJ1757-39-74 11:32:00 Test Item Value Reference Range Interpretation Comments Lymphocytes (test code = Lymphocytes) 30.4 20.0-40.0 [facility] HospitalQxmaspnLMPZLSPLUJ3833-40-93 11:32:00 Test Item Value Reference Range Interpretation Comments Eosinophils (test code = 4.5 See_Comment [A utomated message] The Eosinophils) system which ge nerated this result tra nsmitted reference range : <=4.0. The reference r leo was not used to int erpret this result as normal/abnormal . [facility] HospitalSyqnztyKGVCVAZBCO6542-04-69 11:32:00 Test Item Value Reference Range Interpretation Comments Monocytes (test code = Monocytes) 13.7 2.0-12.0 [facility] HospitalDmlrmrkYNZAAXNDUK5521-99-26 11:32:00 Test Item Value Reference Range Interpretation Comments Segs-Bands # (test code = Segs-Bands #) 2.6 1.5-8.1 [facility] HospitalWypvfmgTLXYOWKLFY2066-49-13 11:32:00 Test Item Value Reference Range Interpretation Comments Basophils (test code = 0.7 See_Comment [Aut omated message] The Basophils) system which ge nerated this result tra nsmitted reference range : <=1.0. The reference r leo was not used to int erpret this result as normal/abnormal . [facility] HospitalTsshhlrBXXSLMTSYU5310-20-24 11:32:00 Test Item Value Reference Range Interpretation Comments Monocytes # (test code 0.7 See_Comment [Aut omated message] The = Monocytes #) system which generated this result tra nsmitted reference range : <=0.8. The reference r leo was not used to int erpret this result as normal/abnormal . [facility] HospitalTrmhdexHQHHMYPXKQ7310-60-52 11:32:00 Test Item Value Reference Range Interpretation Comments Lymphocytes # (test code = Lymphocytes 1.6 1.0-5.5 #) [facility] HospitalHyqceijMKAWZCPKMP5704-21-09 11:32:00 Test Item Value Reference Range Interpretation Comments Eosinophils # (test code 0.2 See_Comment [A utomated message] The = Eosinophils #) system [employer] generated this result tra nsmitted reference range : <=0.5. The reference r leo was not used to int erpret this result as normal/abnormal . [facility] HospitalNnrxnwuJTLKWJEIEY8023-31-78 11:32:00 Test Item Value Reference Range Interpretation Comments Segs (test code = Segs) 50.7 45.0-75.0 [facility] HospitalQiofbgnBAJOLHTGSH2856-94-48 11:32:00 Test Item Value Reference Range Interpretation [...] iron deficiency anemia, and renal disease. CPT: 57910 [facility] HospitalFzonvftTNJJPQRZAD8836-29-09 11:32:00 Test Item Value Reference Range Interpretation Comments Hct (test code = Hct) 28.1 36.0-48.0 [facility] HospitalBiquygqYSUAGLKEUJ6422-07-63 11:32:00 Test Item Value Reference Range Interpretation Comments RBC (test code = RBC) 3.39 4.20-5.40 [facility] HospitalFovmyfkOJIIQKNNCV6938-48-18 11:32:00 Test Item Value Reference Range Interpretation Comments Hgb (test code = Hgb) 8.9 12.0-16.0 [facility] HospitalSraqsjzKEKPAPNMSV0070-27-92 11:32:00 Test Item Value Reference Range Interpretation Comments WBC (test code = WBC) 5.1 3.7-10.4 [facility] HospitalHngnmdhVVHGYOJMVO3108-09-06 11:32:00 Test Item Value Reference Range Interpretation Comments MPV (test code = MPV) 11.3 7.4-10.4 [facility] HospitalYimykckXBOVZIRQJV7609-09-48 11:32:00 Test Item Value Reference Range Interpretation Comments Platelet (test code = Platelet) 118 133-450 [facility] HospitalAfkzvliBFJWJGJKDT2464-17-51 11:32:00 Test Item Value Reference Range Interpretation Comments MCHC (test code = MCHC) 31.8 32.0-36.0 [facility] HospitalZfafvgsNCRWZMHDEE3316-18-78 11:32:00 Test Item Value Reference Range Interpretation Comments RDW (test code = RDW) 18.0 11.5-14.5 [facility] HospitalCpjwmywYYZAOUTSGF2134-60-47 11:32:00 Test Item Value Reference Range Interpretation Comments MCV (test code = MCV) 83.0 80.0-98.0 [facility] HospitalOavxscgJWJHHGNBYZ5101-82-57 11:32:00 Test Item Value Reference Range Interpretation Comments MCH (test code = MCH) 26.4 pg 27.0-31.0 [facility] HospitalWtnnokyVUGVZLIRDZ0546-31-20 11:32:00 Test Item Value Reference Range Interpretation Comments C3 Complement (test code = C3 137 73-201 Complement) [facility] HospitalNajtmqyYEQUPFPCMC0776-00-46 11:32:00 Test Item Value Reference Range Interpretation Comments HIV. (test code = Negative *NA*(07/30/16 HIV.) 5:32 AM) [facility] HospitalOmabnzgJAUWDREAFZ1678-36-56 11:05:00 Test Item Value Reference Range Interpretation [...] iron deficiency anemia, and renal disease. CPT: 68831 [facility] HospitalMmfkyyzYAVCWWQMDR3979-55-56 11:05:00 Test Item Value Reference Range Interpretation Comments HIV. (test code = Negative *NA*(07/29/16 HIV.) 5:05 AM) [facility] HospitalUihzsbnKHWCTKNEXA5496-87-46 11:05:00 Test Item Value Reference Range Interpretation Comments C3 Complement (test code = C3 92 88-201 Complement) [facility] HospitalZxglqewQVXZAKHVBC6583-39-53 11:05:00 Test Item Value Reference Range Interpretation [...] iron deficiency anemia, and renal disease. CPT: 18099 [facility]OkmcdnxMMJVYACTDX1601-93-82 11:05:00 Test Item Value Reference Range Interpretation Comments HIV. (test code = Negative *NA*(07/29/16 HIV.) 5:05 AM) [facility] HospitalGfkhhqyUAWZYLGWJV5922-82-92 11:05:00 Test Item Value Reference Range Interpretation Comments C3 Complement (test code = C3 92 88-201 Complement) [facility] HospitalRdupircHDGNLPMHZI1816-80-55 11:05:00 Test Item Value Reference Range Interpretation [...] iron deficiency anemia, and renal disease. CPT: 97193 [facility] HospitalXtmldimYJMQLDOPIN2655-27-69 11:05:00 Test Item Value Reference Range Interpretation Comments HIV. (test code = Negative *NA*(07/29/16 HIV.) 5:05 AM) [facility] HospitalCpkibebKJPNOOSVLS2632-56-96 11:05:00 Test Item Value Reference Range Interpretation Comments C3 Complement (test code = C3 92 88-201 Complement) [facility] HospitalKhgakkhXLBCOHTVTG1539-25-07 11:05:00 Test Item Value Reference Range Interpretation [...] iron deficiency anemia, and renal disease. CPT: 17258 [facility] CenterLvkrlsaFIEXOKJZMC5671-47-56 11:05:00 Test Item Value Reference Range Interpretation Comments HIV. (test code = Negative *NA*(07/29/16 HIV.) 5:05 AM) [facility] HospitalWiouemrVKRXNUWKIT6938-27-57 11:05:00 Test Item Value Reference Range Interpretation Comments C3 Complement (test code = C3 92 88-201 Complement) [facility]MqteznjLDMKTKOTYM1920-86-26 11:05:00 Test Item Value Reference Range Interpretation [...] iron deficiency anemia, and renal disease. CPT: 01035 [facility]aleWcyphwgCBQGRFCZDA6625-67-45 11:05:00 Test Item Value Reference Range Interpretation Comments HIV. (test code = Negative *NA*(07/29/16 HIV.) 5:05 AM) [facility] HospitalDblwjqrLDBEMYFNYR0945-46-80 11:05:00 Test Item Value Reference Range Interpretation [...] (test code = Creatinine 2.49 0.50-1.40 Lvl) [facility] HospitalYkysgdxFTFIXNCSMH6956-09-26 15:50:00 Test Item Value Reference Range Interpretation Comments PT (test code = PT) 14.8 s 12.0-14.7 [facility] HospitalRybkchwOJLYWCQIJZ0326-27-26 15:50:00 Test Item Value Reference Range Interpretation Comments PTT (test code = PTT) 40.8 s 22.9-35.8 [facility] HospitalKnoufeeXXUIHXBBKC9238-98-54 15:50:00 Test Item Value Reference Range Interpretation Comments INR (test code = INR) 1.14 0.85-1.17 [facility]aleSxrdaizDUWLIZYMIA3578-66-20 15:50:00 Test Item Value Reference Range Interpretation [...] (test code = Creatinine 2.49 0.50-1.40 Lvl) [facility] HospitalWzelzkfBNVYJTYWSD3504-60-97 15:50:00 Test Item Value Reference Range Interpretation Comments PT (test code = PT) 14.8 s 12.0-14.7 [facility] HospitalLnzhqsbFSBQAXOOYK8255-63-53 15:50:00 Test Item Value Reference Range Interpretation Comments PTT (test code = PTT) 40.8 s 22.9-35.8 [facility] HospitalHnwqdnsCRCHASNJZM1135-86-48 15:50:00 Test Item Value Reference Range Interpretation Comments INR (test code = INR) 1.14 0.85-1.17 [facility]aleWpepybrZTJJIJVEXQ4865-99-54 15:50:00 Test Item Value Reference Range Interpretation [...] (test code = Creatinine 2.49 0.50-1.40 Lvl) [facility] HospitalVjpthqhTEGQHPLEJD5139-75-24 15:50:00 Test Item Value Reference Range Interpretation Comments PT (test code = PT) 14.8 s 12.0-14.7 [facility] HospitalZwsfbmaZHVVIDFIYU6333-43-40 15:50:00 Test Item Value Reference Range Interpretation Comments PTT (test code = PTT) 40.8 s 22.9-35.8 [facility] HospitalNaxzdxaTZEPITFKOW8031-84-34 15:50:00 Test Item Value Reference Range Interpretation Comments INR (test code = INR) 1.14 0.85-1.17 [facility]aleLfijmdcJWUIJGZVJL4302-45-75 15:50:00 Test Item Value Reference Range Interpretation [...] (test code = Chloride Lvl) 109 95-109 [place] 691097-02-07 15:50:00 Test Item Value Reference Range Interpretation [...] (test code = Creatinine 2.49 0.50-1.40 Lvl) [facility] HospitalCbocypwPUZBRJQTOR6389-25-01 15:50:00 Test Item Value Reference Range Interpretation Comments PT (test code = PT) 14.8 s 12.0-14.7 [facility] HospitalRbdixxgHAWBOTQFFN3407-50-54 15:50:00 Test Item Value Reference Range Interpretation Comments PTT (test code = PTT) 40.8 s 22.9-35.8 [facility] HospitalMayrwpeOSYDFFINGK9438-77-01 15:50:00 Test Item Value Reference Range Interpretation Comments INR (test code = INR) 1.14 0.85-1.17 [facility]aleXnvlebiIJGNXFHGPU7870-62-94 15:50:00 Test Item Value Reference Range Interpretation [...] (test code = Creatinine 2.49 0.50-1.40 Lvl) [facility] HospitalKcvfqyuCEGKORGSCN2660-52-73 15:50:00 Test Item Value Reference Range Interpretation Comments PT (test code = PT) 14.8 s 12.0-14.7 [facility] HospitalGmttvsvDZZSHKDLHN0851-80-09 15:50:00 Test Item Value Reference Range Interpretation Comments PTT (test code = PTT) 40.8 s 22.9-35.8 [facility] HospitalYumoxsaKDEFAOBNSA5232-83-39 15:50:00 Test Item Value Reference Range Interpretation Comments INR (test code = INR) 1.14 0.85-1.17 [facility]aleKpikvarNQFXOGSQFP5624-65-91 15:50:00 Test Item Value Reference Range Interpretation Comments C3 Complement (test code = C3 94 88-201 Complement) [facility] HospitalFpciejtWCAEXVYQPY3913-43-69 10:35:00 Test Item Value Reference Range Interpretation Comments Lymphocytes # (test code = Lymphocytes 1.7 1.0-5.5 #) [facility] HospitalKkqkbabQVBIGLPENK8778-02-54 10:35:00 Test Item Value Reference Range Interpretation Comments Segs-Bands # (test code = Segs-Bands #) 2.7 1.5-8.1 [facility] HospitalEhinsqxVWTAICGAVU7266-13-22 10:35:00 Test Item Value Reference Range Interpretation Comments Eosinophils # (test code 0.1 See_Comment [A utomated message] The = Eosinophils #) system [facility] h generated this result tra nsmitted reference range : <=0.5. The reference r leo was not used to int erpret this result as normal/abnormal . [facility] HospitalKwnbwybIWXQZVODQO6639-72-15 10:35:00 Test Item Value Reference Range Interpretation Comments Monocytes # (test code 0.7 See_Comment [Aut omated message] The = Monocytes #) system which generated this result tra nsmitted reference range : <=0.8. The reference r leo was not used to int erpret this result as normal/abnormal . [facility] HospitalRebpfudPRZLFPCYDR7285-51-32 10:35:00 Test Item Value Reference Range Interpretation Comments Segs (test code = Segs) 51.3 45.0-75.0 [facility] HospitalOeictmsJVIGCTHRTL5950-43-48 10:35:00 Test Item Value Reference Range Interpretation Comments Lymphocytes (test code = Lymphocytes) 31.6 20.0-40.0 [facility] HospitalXmpwtvaDJDCASCQRM4808-85-86 10:35:00 Test Item Value Reference Range Interpretation Comments Monocytes (test code = Monocytes) 14.1 2.0-12.0 [facility] HospitalAbineziCYDEISYDHZ4082-81-99 10:35:00 Test Item Value Reference Range Interpretation Comments Eosinophils (test code = 2.6 See_Comment [A utomated message] The Eosinophils) system which ge nerated this result tra nsmitted reference range : <=4.0. The reference r leo was not used to int erpret this result as normal/abnormal . [facility] HospitalTweplgwFIBYOTMHOA3089-28-32 10:35:00 Test Item Value Reference Range Interpretation Comments Basophils (test code = 0.4 See_Comment [Aut omated message] The Basophils) system which ge nerated this result tra nsmitted reference range : <=1.0. The reference r leo was not used to int erpret this result as normal/abnormal . [facility] HospitalJgwgzadBGVTFCUAOG9938-59-03 10:35:00 Test Item Value Reference Range Interpretation Comments PB Smear Path Peripheral blood smear shows (test code = PB hypochromic normocytic Smear Path) anemia with anisopoikilocytsosis, no increase in schistocytes, slight polychromasia, a few estella cells, moderate thrombocytopenia. Impression: (1) no evidence of microangiopathic hemolysis, (2) RBC morphology is suggestive of anemia of chronic disease or iron deficiency anemia, and renal disease. CPT: 59265 [facility] HospitalNgroznaUFHYZNMGWA0422-42-15 10:35:00 Test Item Value Reference Range Interpretation Comments Hct (test code = Hct) 29.3 36.0-48.0 [facility] HospitalQahfgmfMJYALPIMXN4394-90-16 10:35:00 Test Item Value Reference Range Interpretation Comments Hgb (test code = Hgb) 9.2 12.0-16.0 [facility] HospitalWdviwqwMNMVCFCXOP7503-32-45 10:35:00 Test Item Value Reference Range Interpretation Comments RBC (test code = RBC) 3.54 4.20-5.40 [facility] HospitalXkztyyqGHCRPSCYCD7876-52-78 10:35:00 Test Item Value Reference Range Interpretation Comments WBC (test code = WBC) 5.3 3.7-10.4 [facility] HospitalCggoehrHUNPXKGQHH0263-97-25 10:35:00 Test Item Value Reference Range Interpretation Comments Platelet (test code = Platelet) 87 133-450 [facility] HospitalDxcvshfRPQFDIEIYG3484-23-42 10:35:00 Test Item Value Reference Range Interpretation Comments MCHC (test code = MCHC) 31.4 32.0-36.0 [facility] HospitalJbzkeigBVPBPKMORU2641-58-45 10:35:00 Test Item Value Reference Range Interpretation Comments RDW (test code = RDW) 17.9 11.5-14.5 [facility] HospitalAruwdixXINDOALTIT3337-91-99 10:35:00 Test Item Value Reference Range Interpretation Comments MPV (test code = MPV) 10.9 7.4-10.4 [facility] HospitalPujeiojTBROTEYDIJ8071-09-99 10:35:00 Test Item Value Reference Range Interpretation Comments MCH (test code = MCH) 26.0 pg 27.0-31.0 [facility] HospitalHxtvrozYHVNJPIGVE0266-75-10 10:35:00 Test Item Value Reference Range Interpretation Comments MCV (test code = MCV) 82.8 80.0-98.0 [facility]aleGksympfHJUENZRYIV2610-79-47 10:35:00 Test Item Value Reference Range Interpretation Comments HIV. (test code = Negative *NA*(07/28/16 HIV.) 4:35 AM) [facility] HospitalZtjrjotBRAOHUZKCM5760-52-25 10:35:00 Test Item Value Reference Range Interpretation Comments Lymphocytes # (test code = Lymphocytes 1.7 1.0-5.5 #) [facility] HospitalMxemdndWDQWFXDANS7125-17-98 10:35:00 Test Item Value Reference Range Interpretation Comments Segs-Bands # (test code = Segs-Bands #) 2.7 1.5-8.1 [facility] HospitalRqtltroGZKNTQUYTF4324-71-35 10:35:00 Test Item Value Reference Range Interpretation Comments Eosinophils # (test code 0.1 See_Comment [A utomated message] The = Eosinophils #) system whic h generated this result tra nsmitted reference range : <=0.5. The reference r leo was not used to int erpret this result as normal/abnormal . [facility] HospitalCuhjwnbANHODTDHIY3105-37-66 10:35:00 Test Item Value Reference Range Interpretation Comments Monocytes # (test code 0.7 See_Comment [Aut omated message] The = Monocytes #) system which generated this result tra nsmitted reference range : <=0.8. The reference r leo was not used to int erpret this result as normal/abnormal . [facility] HospitalMhvyxapSKEDWYLUHT6766-57-43 10:35:00 Test Item Value Reference Range Interpretation Comments Segs (test code = Segs) 51.3 45.0-75.0 [facility] HospitalEbtivduDMCKQOSUTC1498-23-63 10:35:00 Test Item Value Reference Range Interpretation Comments Lymphocytes (test code = Lymphocytes) 31.6 20.0-40.0 [facility] HospitalWsdwjviCYFDSEFANX7621-99-61 10:35:00 Test Item Value Reference Range Interpretation Comments Monocytes (test code = Monocytes) 14.1 2.0-12.0 [facility] HospitalSnyhtuqQAEQHIKPHG0623-90-00 10:35:00 Test Item Value Reference Range Interpretation Comments Eosinophils (test code = 2.6 See_Comment [A utomated message] The Eosinophils) system which ge nerated this result tra nsmitted reference range : <=4.0. The reference r leo was not used to int erpret this result as normal/abnormal . [facility] HospitalLrkgfkcXPGAJTOUAG2259-26-67 10:35:00 Test Item Value Reference Range Interpretation Comments Basophils (test code = 0.4 See_Comment [Aut omated message] The Basophils) system which ge nerated this result tra nsmitted reference range : <=1.0. The reference r leo was not used to int erpret this result as normal/abnormal . [facility] HospitalHeuvhvgZRDLJAWDDD4726-58-43 10:35:00 Test Item Value Reference Range Interpretation Comments PB Smear Path Peripheral blood smear shows (test code = PB hypochromic normocytic Smear Path) anemia with anisopoikilocytsosis, no increase in schistocytes, slight polychromasia, a few estella cells, moderate thrombocytopenia. Impression: (1) no evidence of microangiopathic hemolysis, (2) RBC morphology is suggestive of anemia of chronic disease or iron deficiency anemia, and renal disease. CPT: 57955 [facility] HospitalFotmbdoYGNZVGJWBG3223-48-00 10:35:00 Test Item Value Reference Range Interpretation Comments Hct (test code = Hct) 29.3 36.0-48.0 [facility] HospitalRaxxrdwMAJJQNBAKK2776-95-98 10:35:00 Test Item Value Reference Range Interpretation Comments Hgb (test code = Hgb) 9.2 12.0-16.0 [facility] HospitalZewgvqfADABESWSZE0361-37-93 10:35:00 Test Item Value Reference Range Interpretation Comments RBC (test code = RBC) 3.54 4.20-5.40 [facility] HospitalHesjogdUUGHKZNYIQ0748-11-54 10:35:00 Test Item Value Reference Range Interpretation Comments WBC (test code = WBC) 5.3 3.7-10.4 [facility] HospitalXbhdkpyGMYJEJNEIW4418-45-08 10:35:00 Test Item Value Reference Range Interpretation Comments Platelet (test code = Platelet) 87 133-450 [facility] HospitalTzudsteSPVDODMORL1716-89-68 10:35:00 Test Item Value Reference Range Interpretation Comments MCHC (test code = MCHC) 31.4 32.0-36.0 [facility] HospitalNleafhiBYFSARFLCV8299-30-03 10:35:00 Test Item Value Reference Range Interpretation Comments RDW (test code = RDW) 17.9 11.5-14.5 [facility] HospitalGowprebHRBCVFTCHP0505-97-59 10:35:00 Test Item Value Reference Range Interpretation Comments MPV (test code = MPV) 10.9 7.4-10.4 [facility] HospitalVrvnfddHUSJZZHXME3171-96-28 10:35:00 Test Item Value Reference Range Interpretation Comments MCH (test code = MCH) 26.0 pg 27.0-31.0 [facility] HospitalOngsgnhYDMBLTYNPO1694-68-11 10:35:00 Test Item Value Reference Range Interpretation Comments MCV (test code = MCV) 82.8 80.0-98.0 [facility]ZjkegbxEEANKNBJNW5884-64-55 10:35:00 Test Item Value Reference Range Interpretation Comments HIV. (test code = Negative *NA*(07/28/16 HIV.) 4:35 AM) [facility] HospitalDzedbeoPGPFTKDMHB2816-98-86 10:35:00 Test Item Value Reference Range Interpretation Comments Lymphocytes # (test code = Lymphocytes 1.7 1.0-5.5 #) [facility] HospitalBghuwgxFUXAWVLABN0538-39-94 10:35:00 Test Item Value Reference Range Interpretation Comments Segs-Bands # (test code = Segs-Bands #) 2.7 1.5-8.1 [facility] HospitalDlnhzidKCHHTYDCAD5855-32-60 10:35:00 Test Item Value Reference Range Interpretation Comments Eosinophils # (test code 0.1 See_Comment [A utomated message] The = Eosinophils #) system whic h generated this result tra nsmitted reference range : <=0.5. The reference r leo was not used to int erpret this result as normal/abnormal . [facility] HospitalVpxtzupODRRLSMJZG8915-37-79 10:35:00 Test Item Value Reference Range Interpretation Comments Monocytes # (test code 0.7 See_Comment [Aut omated message] The = Monocytes #) system which generated this result tra nsmitted reference range : <=0.8. The reference r leo was not used to int erpret this result as normal/abnormal . [facility] HospitalNuataxtWWVRDJPDFK2370-44-68 10:35:00 Test Item Value Reference Range Interpretation Comments Segs (test code = Segs) 51.3 45.0-75.0 [facility] HospitalDehsotmGJCMUMZZHS7544-54-75 10:35:00 Test Item Value Reference Range Interpretation Comments Lymphocytes (test code = Lymphocytes) 31.6 20.0-40.0 [facility] HospitalRpkcetiGKFWQBSJRO1917-44-52 10:35:00 Test Item Value Reference Range Interpretation Comments Monocytes (test code = Monocytes) 14.1 2.0-12.0 [facility] HospitalMhikeltNVPXNQKQMP4355-54-79 10:35:00 Test Item Value Reference Range Interpretation Comments Eosinophils (test code = 2.6 See_Comment [A utomated message] The Eosinophils) system which ge nerated this result tra nsmitted reference range : <=4.0. The reference r leo was not used to int erpret this result as normal/abnormal . [facility] HospitalPohjoorIZZMSXVMVS3800-41-38 10:35:00 Test Item Value Reference Range Interpretation Comments Basophils (test code = 0.4 See_Comment [Aut omated message] The Basophils) system which ge nerated this result tra nsmitted reference range : <=1.0. The reference r leo was not used to int erpret this result as normal/abnormal . [facility] HospitalBlbjmssEXZOZGNVJM8778-50-57 10:35:00 Test Item Value Reference Range Interpretation Comments PB Smear Path Peripheral blood smear shows (test code = PB hypochromic normocytic Smear Path) anemia with anisopoikilocytsosis, no increase in schistocytes, slight polychromasia, a few estella cells, moderate thrombocytopenia. Impression: (1) no evidence of microangiopathic hemolysis, (2) RBC morphology is suggestive of anemia of chronic disease or iron deficiency anemia, and renal disease. CPT: 67070 [facility] HospitalTvxuuhxWQYRJSHSML0532-80-10 10:35:00 Test Item Value Reference Range Interpretation Comments Hct (test code = Hct) 29.3 36.0-48.0 [facility] HospitalHbubpimAIDAJKVFAR4875-29-28 10:35:00 Test Item Value Reference Range Interpretation Comments Hgb (test code = Hgb) 9.2 12.0-16.0 [facility] HospitalQtkqqjmISESMILCJI4125-98-47 10:35:00 Test Item Value Reference Range Interpretation Comments RBC (test code = RBC) 3.54 4.20-5.40 [facility] HospitalSxpgvsxUIKWPHEVAH8112-99-90 10:35:00 Test Item Value Reference Range Interpretation Comments WBC (test code = WBC) 5.3 3.7-10.4 [facility] HospitalVuccvpnYIGEBUQUBW7623-26-04 10:35:00 Test Item Value Reference Range Interpretation Comments Platelet (test code = Platelet) 87 133-450 [facility] HospitalIzeaepwVENLKFPGRN7054-22-30 10:35:00 Test Item Value Reference Range Interpretation Comments MCHC (test code = MCHC) 31.4 32.0-36.0 [facility] HospitalRrxvwybKNGXABHBZR5170-91-99 10:35:00 Test Item Value Reference Range Interpretation Comments RDW (test code = RDW) 17.9 11.5-14.5 [facility] HospitalAqwugsyMFPTCMQBNE2649-14-09 10:35:00 Test Item Value Reference Range Interpretation Comments MPV (test code = MPV) 10.9 7.4-10.4 [facility] HospitalWzjdpqkAYSBXGOPKB8646-43-24 10:35:00 Test Item Value Reference Range Interpretation Comments MCH (test code = MCH) 26.0 pg 27.0-31.0 [facility] HospitalRwqjbwuNSELETIOLY7902-91-00 10:35:00 Test Item Value Reference Range Interpretation Comments MCV (test code = MCV) 82.8 80.0-98.0 [facility]aleJlwijslGYJCCDLVPO0781-59-01 10:35:00 Test Item Value Reference Range Interpretation Comments HIV. (test code = Negative *NA*(07/28/16 HIV.) 4:35 AM) [facility] HospitalCplxnhpOVSOTBVUCL4909-79-87 10:35:00 Test Item Value Reference Range Interpretation Comments Lymphocytes # (test code = Lymphocytes 1.7 1.0-5.5 #) [facility] HospitalIoelbfjAUVSKYZCVO1812-86-09 10:35:00 Test Item Value Reference Range Interpretation Comments Segs-Bands # (test code = Segs-Bands #) 2.7 1.5-8.1 [facility] HospitalEtuenjzUWMBLZUTYS0766-23-34 10:35:00 Test Item Value Reference Range Interpretation Comments Eosinophils # (test code 0.1 See_Comment [A utomated message] The = Eosinophils #) system whic h generated this result tra nsmitted reference range : <=0.5. The reference r leo was not used to int erpret this result as normal/abnormal . [facility] HospitalVnthjfzIUUZCBFLKX8176-94-48 10:35:00 Test Item Value Reference Range Interpretation Comments Monocytes # (test code 0.7 See_Comment [Aut omated message] The = Monocytes #) system which generated this result tra nsmitted reference range : <=0.8. The reference r leo was not used to int erpret this result as normal/abnormal . [facility] HospitalNcbkgpoVPJYDPRWBN0985-36-26 10:35:00 Test Item Value Reference Range Interpretation Comments Segs (test code = Segs) 51.3 45.0-75.0 [facility] HospitalHmtkcvbPROCERYKJK7720-99-73 10:35:00 Test Item Value Reference Range Interpretation Comments Lymphocytes (test code = Lymphocytes) 31.6 20.0-40.0 [facility] HospitalWgtgyibIYTLYFFUST1991-21-28 10:35:00 Test Item Value Reference Range Interpretation Comments Monocytes (test code = Monocytes) 14.1 2.0-12.0 [facility] HospitalCyvorfnKZPOHIUSVO8949-04-85 10:35:00 Test Item Value Reference Range Interpretation Comments Eosinophils (test code = 2.6 See_Comment [A utomated message] The Eosinophils) system which ge nerated this result tra nsmitted reference range : <=4.0. The reference r leo was not used to int erpret this result as normal/abnormal . [facility] HospitalBedahfrSZJLJOYAPJ0295-14-79 10:35:00 Test Item Value Reference Range Interpretation Comments Basophils (test code = 0.4 See_Comment [Aut omated message] The Basophils) system which ge nerated this result tra nsmitted reference range : <=1.0. The reference r leo was not used to int erpret this result as normal/abnormal . [facility] HospitalLtgtrwhDRGGDDZVJK7818-19-93 10:35:00 Test Item Value Reference Range Interpretation Comments PB Smear Path Peripheral blood smear shows (test code = PB hypochromic normocytic Smear Path) anemia with anisopoikilocytsosis, no increase in schistocytes, slight polychromasia, a few estella cells, moderate thrombocytopenia. Impression: (1) no evidence of microangiopathic hemolysis, (2) RBC morphology is suggestive of anemia of chronic disease or iron deficiency anemia, and renal disease. CPT: 00327 [facility] HospitalXpycfzzMWBXEKPHZV1488-90-99 10:35:00 Test Item Value Reference Range Interpretation Comments Hct (test code = Hct) 29.3 36.0-48.0 [facility] HospitalDdqldrqZCGIOLCPXS2145-64-88 10:35:00 Test Item Value Reference Range Interpretation Comments Hgb (test code = Hgb) 9.2 12.0-16.0 [facility] HospitalIwibldxDOPBJOCIII5845-77-15 10:35:00 Test Item Value Reference Range Interpretation Comments RBC (test code = RBC) 3.54 4.20-5.40 [facility] HospitalJkcntobJUFWCLTDCH0624-87-06 10:35:00 Test Item Value Reference Range Interpretation Comments WBC (test code = WBC) 5.3 3.7-10.4 [facility] HospitalXdcdewnKMZNQLKDDE2790-50-96 10:35:00 Test Item Value Reference Range Interpretation Comments Platelet (test code = Platelet) 87 133-450 [facility] HospitalRdjncnePYEHKUFGML4617-85-16 10:35:00 Test Item Value Reference Range Interpretation Comments MCHC (test code = MCHC) 31.4 32.0-36.0 [facility] HospitalUbkhffcWYCIZHSMSZ4205-94-95 10:35:00 Test Item Value Reference Range Interpretation Comments RDW (test code = RDW) 17.9 11.5-14.5 [facility] HospitalRjolvuwRRWQXUGSWI1526-93-23 10:35:00 Test Item Value Reference Range Interpretation Comments MPV (test code = MPV) 10.9 7.4-10.4 [facility] HospitalKqsmlxkNMQRJPYVLB8248-50-02 10:35:00 Test Item Value Reference Range Interpretation Comments MCH (test code = MCH) 26.0 pg 27.0-31.0 [facility] HospitalKmdfotfZYRMGVEFTT8196-72-36 10:35:00 Test Item Value Reference Range Interpretation Comments MCV (test code = MCV) 82.8 80.0-98.0 [facility]aleYhvrgipPRGXRRMAPE6205-99-15 10:35:00 Test Item Value Reference Range Interpretation Comments HIV. (test code = Negative *NA*(07/28/16 HIV.) 4:35 AM) [facility] HospitalMebfvmcEOEXNRAJDP2555-31-23 10:35:00 Test Item Value Reference Range Interpretation Comments Lymphocytes # (test code = Lymphocytes 1.7 1.0-5.5 #) [facility] HospitalUneeyohSAEISZTLRY4342-89-42 10:35:00 Test Item Value Reference Range Interpretation Comments Segs-Bands # (test code = Segs-Bands #) 2.7 1.5-8.1 [facility] HospitalIjpywhpSNDBSBJYUG0034-59-61 10:35:00 Test Item Value Reference Range Interpretation Comments Eosinophils # (test code 0.1 See_Comment [A utomated message] The = Eosinophils #) system [facility] generated this result tra nsmitted reference range : <=0.5. The reference r leo was not used to int erpret this result as normal/abnormal . [facility] HospitalRdmgtukDFKSYFRSZW4910-58-02 10:35:00 Test Item Value Reference Range Interpretation Comments Monocytes # (test code 0.7 See_Comment [Aut omated message] The = Monocytes #) system which generated this result tra nsmitted reference range : <=0.8. The reference r leo was not used to int erpret this result as normal/abnormal . [facility] HospitalJqjlyhjXVMZUQCESO7226-81-67 10:35:00 Test Item Value Reference Range Interpretation Comments Segs (test code = Segs) 51.3 45.0-75.0 [facility] HospitalGfxzirtCMCUXHTWDE4996-24-50 10:35:00 Test Item Value Reference Range Interpretation Comments Lymphocytes (test code = Lymphocytes) 31.6 20.0-40.0 [facility] HospitalFscdqgpGOGIBERDYK9290-93-53 10:35:00 Test Item Value Reference Range Interpretation Comments Monocytes (test code = Monocytes) 14.1 2.0-12.0 [facility] HospitalNpusaqdXBVYMWJYAH7120-73-04 10:35:00 Test Item Value Reference Range Interpretation Comments Eosinophils (test code = 2.6 See_Comment [A utomated message] The Eosinophils) system which ge nerated this result tra nsmitted reference range : <=4.0. The reference r leo was not used to int erpret this result as normal/abnormal . [facility] HospitalEpsbzdgWQBFOWTPUW2074-07-89 10:35:00 Test Item Value Reference Range Interpretation Comments Basophils (test code = 0.4 See_Comment [Aut omated message] The Basophils) system which ge nerated this result tra nsmitted reference range : <=1.0. The reference r leo was not used to int erpret this result as normal/abnormal . [facility] HospitalQlxzlewPWIGWYMOWY6404-35-40 10:35:00 Test Item Value Reference Range Interpretation Comments PB Smear Path Peripheral blood smear shows (test code = PB hypochromic normocytic Smear Path) anemia with anisopoikilocytsosis, no increase in schistocytes, slight polychromasia, a few estella cells, moderate thrombocytopenia. Impression: (1) no evidence of microangiopathic hemolysis, (2) RBC morphology is suggestive of anemia of chronic disease or iron deficiency anemia, and renal disease. CPT: 40078 [facility]alePqzcvctFZVQXBKVSJ2498-45-97 10:35:00 Test Item Value Reference Range Interpretation Comments Hct (test code = Hct) 29.3 36.0-48.0 [facility]aleUisjobxXNBFEHMYXP1595-37-44 10:35:00 Test Item Value Reference Range Interpretation Comments Hgb (test code = Hgb) 9.2 12.0-16.0 [facility]aleBfpquxwJYWROIWLHM7393-93-51 10:35:00 Test Item Value Reference Range Interpretation Comments RBC (test code = RBC) 3.54 4.20-5.40 [facility]valeDnajftdORQNLESVMK7220-87-59 10:35:00 Test Item Value Reference Range Interpretation Comments WBC (test code = WBC) 5.3 3.7-10.4 [facility]valeUomrixgAEAPYRWLOI8181-90-80 10:35:00 Test Item Value Reference Range Interpretation Comments Platelet (test code = Platelet) 87 133-450 [facility]DkihflzFPKLIOIZJF4519-97-76 10:35:00 Test Item Value Reference Range Interpretation Comments MCHC (test code = MCHC) 31.4 32.0-36.0 [facility]aleItqfibvVJGYYFZYVR3275-50-67 10:35:00 Test Item Value Reference Range Interpretation Comments RDW (test code = RDW) 17.9 11.5-14.5 [facility]aleEblbvgiVXDRZHYXHS4720-53-05 10:35:00 Test Item Value Reference Range Interpretation Comments MPV (test code = MPV) 10.9 7.4-10.4 [facility]aleWzlfafvXIMHCQEVNR8865-91-23 10:35:00 Test Item Value Reference Range Interpretation Comments MCH (test code = MCH) 26.0 pg 27.0-31.0 [facility]aleGycnxkcZCLFJOGXTZ5862-16-80 10:35:00 Test Item Value Reference Range Interpretation Comments MCV (test code = MCV) 82.8 80.0-98.0 [facility]valeIcucewkPYTIBSCDPJ3199-70-92 10:35:00 Test Item Value Reference Range Interpretation Comments HIV. (test code = Negative *NA*(07/28/16 HIV.) 4:35 AM) [facility]aleCARDIAC GALWGOP2124-70-85 10:22:00 Test Item Value Reference Range Interpretation Comments Total CK (test code = Total CK) 190 12-191 [facility]2017-02-06 10:22:00 Test Item Value Reference Range Interpretation Comments Calcium Lvl (test code = Calcium Lvl) 7.8 8.5-10.5 [facility]2017-02-06 10:22:00 Test Item Value Reference Range Interpretation Comments CO2 (test code = CO2) 21 24-32 [facility]2017-02-06 10:22:00 Test Item Value Reference Range Interpretation Comments Sodium Lvl (test code = Sodium Lvl) 140 135-145 [facility] [...] this result as reji l/abnormal. [place] [address]-02-06 10:22:00 Test Item Value Reference Range Interpretation [...] Phosphorus (test code = Phosphorus) 3.7 2.5-4.5 [facility] HospitalGrxgmrdXJIFQTGVSK9163-01-03 10:22:00 Test Item Value Reference Range Interpretation Comments RDW (test code = RDW) 17.7 11.5-14.5 [facility] HospitalEhcaeaaVVYMGYNTAO3566-07-50 10:22:00 Test Item Value Reference Range Interpretation Comments MCHC (test code = MCHC) 32.9 32.0-36.0 [facility] HospitalQvyrcgnUUGREYTXAM1738-97-71 10:22:00 Test Item Value Reference Range Interpretation Comments Hct (test code = Hct) 25.4 36.0-48.0 [facility] HospitalXijhsbkGFNTSBJYCT2362-41-55 10:22:00 Test Item Value Reference Range Interpretation Comments MCH (test code = MCH) 26.4 pg 27.0-31.0 [facility] HospitalJvpqcweUWDBMOSSDC0069-08-65 10:22:00 Test Item Value Reference Range Interpretation Comments MCV (test code = MCV) 80.3 80.0-98.0 [facility] HospitalOpeiuxvCYAKTXNWJW9734-38-67 10:22:00 Test Item Value Reference Range Interpretation Comments MPV (test code = MPV) 11.4 7.4-10.4 [facility] HospitalCmaftwhRPDJWDOPHO6509-67-44 10:22:00 Test Item Value Reference Range Interpretation Comments Platelet (test code = Platelet) 74 133-450 [facility] HospitalFtsfumwJZXFWZOMEE2929-19-21 10:22:00 Test Item Value Reference Range Interpretation Comments RBC (test code = RBC) 3.16 4.20-5.40 [facility] HospitalExogfjbMIIFCTNSMU6576-54-78 10:22:00 Test Item Value Reference Range Interpretation Comments WBC (test code = WBC) 5.3 3.7-10.4 [facility] HospitalFamsekgEFUVMROISH8102-87-14 10:22:00 Test Item Value Reference Range Interpretation Comments Hgb (test code = Hgb) 8.4 12.0-16.0 [facility] HospitalZmffkhaVUJRYWKXXV3078-13-26 10:22:00 Test Item Value Reference Range Interpretation Comments Monocytes (test code = Monocytes) 14.5 2.0-12.0 [facility] HospitalPyshnrlUBSRUUXWSN9999-69-88 10:22:00 Test Item Value Reference Range Interpretation Comments Lymphocytes (test code = Lymphocytes) 29.8 20.0-40.0 [facility] HospitalUbsthchULIMMRDXGV0794-24-40 10:22:00 Test Item Value Reference Range Interpretation Comments Eosinophils # (test code 0.1 See_Comment [A utomated message] The = Eosinophils #) system whic h generated this result tra nsmitted reference range : <=0.5. The reference r leo was not used to int erpret this result as normal/abnormal . [facility] HospitalBfpkxzdDATZVYRXYT7218-65-07 10:22:00 Test Item Value Reference Range Interpretation Comments Monocytes # (test code 0.8 See_Comment [Aut omated message] The = Monocytes #) system which generated this result tra nsmitted reference range : <=0.8. The reference r leo was not used to int erpret this result as normal/abnormal . [facility] RegionMgrlednAKWVSNUQJF0234-64-03 10:22:00 Test Item Value Reference Range Interpretation Comments Segs-Bands # (test code = Segs-Bands #) 2.9 1.5-8.1 [facility] RegionJwwzmpbIUZKFHIHSH0505-07-17 10:22:00 Test Item Value Reference Range Interpretation Comments Lymphocytes # (test code = Lymphocytes 1.6 1.0-5.5 #) [facility] HospitalGhipktdAMFHKVXEDD4645-69-47 10:22:00 Test Item Value Reference Range Interpretation Comments Basophils (test code = 0.4 See_Comment [Aut omated message] The Basophils) system which ge nerated this result tra nsmitted reference range : <=1.0. The reference r leo was not used to int erpret this result as normal/abnormal . [facility] HospitalCixourdDSZYJVSEVV8545-58-40 10:22:00 Test Item Value Reference Range Interpretation Comments Eosinophils (test code = 1.2 See_Comment [A utomated message] The Eosinophils) system which ge nerated this result tra nsmitted reference range : <=4.0. The reference r leo was not used to int erpret this result as normal/abnormal . [facility] RegionQgmvnkjMIKLEQXJSH1164-36-96 10:22:00 Test Item Value Reference Range Interpretation Comments Segs (test code = Segs) 54.1 45.0-75.0 [facility]aleSPECIAL ZZPFJNYEG6085-20-17 10:22:00 Test Item Value Reference Range Interpretation Comments Hgb A1C (test code = Hgb A1C) 8.9 [facility]aleCARDIAC PLQNREJ5589-76-05 10:22:00 Test Item Value Reference Range Interpretation Comments Total CK (test code = Total CK) 190 12-191 [facility]aleCHEM CSTTZ0918-57-00 10:22:00 Test Item Value Reference Range Interpretation Comments Calcium Lvl (test code = Calcium Lvl) 7.8 8.5-10.5 [facility]aleCHEM SOGFW4323-32-90 10:22:00 Test Item Value Reference Range Interpretation Comments CO2 (test code = CO2) 21 24-32 [facility]2017-02-06 10:22:00 Test Item Value Reference Range Interpretation Comments Sodium Lvl (test code = Sodium Lvl) 140 135-145 [facility] [...] Phosphorus (test code = Phosphorus) 3.7 2.5-4.5 [facility] HospitalViazdjrEWOGBUPVHS3788-29-41 10:22:00 Test Item Value Reference Range Interpretation Comments RDW (test code = RDW) 17.7 11.5-14.5 [facility] HospitalCgwpltkKMURZWQKFX1055-12-43 10:22:00 Test Item Value Reference Range Interpretation Comments MCHC (test code = MCHC) 32.9 32.0-36.0 [facility] HospitalPfpqivbNTLANOKNNY8838-17-38 10:22:00 Test Item Value Reference Range Interpretation Comments Hct (test code = Hct) 25.4 36.0-48.0 [facility] HospitalIprnnlwDHZBJBLCOW1712-59-53 10:22:00 Test Item Value Reference Range Interpretation Comments MCH (test code = MCH) 26.4 pg 27.0-31.0 [facility] HospitalIrjyuptNXNHPVRXMU7475-03-19 10:22:00 Test Item Value Reference Range Interpretation Comments MCV (test code = MCV) 80.3 80.0-98.0 [facility] HospitalEscgqmqPUTWKLXYUX8045-61-29 10:22:00 Test Item Value Reference Range Interpretation Comments MPV (test code = MPV) 11.4 7.4-10.4 [facility] HospitalEnvwdpvUWFPWYPVHX4782-01-57 10:22:00 Test Item Value Reference Range Interpretation Comments Platelet (test code = Platelet) 74 133-450 [facility] HospitalGkodiwbSWUGHGIFEQ5107-59-92 10:22:00 Test Item Value Reference Range Interpretation Comments RBC (test code = RBC) 3.16 4.20-5.40 [facility] HospitalMjgorunAMKBWWFKRV6790-65-00 10:22:00 Test Item Value Reference Range Interpretation Comments WBC (test code = WBC) 5.3 3.7-10.4 [facility] HospitalGuydlomPOVNLDSHSR0518-40-71 10:22:00 Test Item Value Reference Range Interpretation Comments Hgb (test code = Hgb) 8.4 12.0-16.0 [facility] HospitalTovicbfOYQFSLFJGL6707-57-76 10:22:00 Test Item Value Reference Range Interpretation Comments Monocytes (test code = Monocytes) 14.5 2.0-12.0 [facility] HospitalIxgozigAOBTSLSCAN9941-50-05 10:22:00 Test Item Value Reference Range Interpretation Comments Lymphocytes (test code = Lymphocytes) 29.8 20.0-40.0 [facility] HospitalZfkefviJPXWAYQCXW9473-45-34 10:22:00 Test Item Value Reference Range Interpretation Comments Eosinophils # (test code 0.1 See_Comment [A utomated message] The = Eosinophils #) system whic h generated this result tra nsmitted reference range : <=0.5. The reference r leo was not used to int erpret this result as normal/abnormal . [facility] HospitalFpbkelpOZNURPSFHD3168-14-16 10:22:00 Test Item Value Reference Range Interpretation Comments Monocytes # (test code 0.8 See_Comment [Aut omated message] The = Monocytes #) system which generated this result tra nsmitted reference range : <=0.8. The reference r leo was not used to int erpret this result as normal/abnormal . [facility] HospitalTlghabdFCDGMUYJJR9476-36-60 10:22:00 Test Item Value Reference Range Interpretation Comments Segs-Bands # (test code = Segs-Bands #) 2.9 1.5-8.1 [facility] HospitalCxyttysUVAFTXBQJJ6378-90-34 10:22:00 Test Item Value Reference Range Interpretation Comments Lymphocytes # (test code = Lymphocytes 1.6 1.0-5.5 #) [facility] HospitalBigballWOGSCPRCCQ9695-97-42 10:22:00 Test Item Value Reference Range Interpretation Comments Basophils (test code = 0.4 See_Comment [Aut omated message] The Basophils) system which ge nerated this result tra nsmitted reference range : <=1.0. The reference r leo was not used to int erpret this result as normal/abnormal . [facility] HospitalNwybpvtPYSSMFFCKI3328-57-51 10:22:00 Test Item Value Reference Range Interpretation Comments Eosinophils (test code = 1.2 See_Comment [A utomated message] The Eosinophils) system which ge nerated this result tra nsmitted reference range : <=4.0. The reference r leo was not used to int erpret this result as normal/abnormal . [facility] HospitalDorjmpsQJFGVPQLRL2551-56-15 10:22:00 Test Item Value Reference Range Interpretation Comments Segs (test code = Segs) 54.1 45.0-75.0 [facility]aleSPECIAL [id number] 10:22:00 Test Item Value Reference Range Interpretation Comments Hgb A1C (test code = Hgb A1C) 8.9 [facility]aleCARDIAC [id number] 10:22:00 Test Item Value Reference Range Interpretation Comments Total CK (test code = Total CK) 190 12-191 [facility] SunnyvaleShopReply [id number] 10:22:00 Test Item Value Reference Range Interpretation Comments Calcium Lvl (test code = Calcium Lvl) 7.8 8.5-10.5 [facility]aleShopReply [id number] 10:22:00 Test Item Value Reference Range Interpretation Comments CO2 (test code = CO2) 21 24-32 [facility]aleShopReply [id number] 10:22:00 Test Item Value Reference Range Interpretation Comments Sodium Lvl (test code = Sodium Lvl) 140 135-145 [facility]aleShopReply [id number] 10:22:00 Test Item Value Reference Range Interpretation [...] Phosphorus (test code = Phosphorus) 3.7 2.5-4.5 [facility] HospitalAxxpupySPFWUGFEEH1593-22-36 10:22:00 Test Item Value Reference Range Interpretation Comments RDW (test code = RDW) 17.7 11.5-14.5 [facility] HospitalZvvidbjDHQJRHRTEP7328-89-46 10:22:00 Test Item Value Reference Range Interpretation Comments MCHC (test code = MCHC) 32.9 32.0-36.0 [facility] HospitalDrcdjiiFNSTECANNA1410-67-96 10:22:00 Test Item Value Reference Range Interpretation Comments Hct (test code = Hct) 25.4 36.0-48.0 [facility] HospitalHjgpzcrUWEWMUHGNO2609-45-94 10:22:00 Test Item Value Reference Range Interpretation Comments MCH (test code = MCH) 26.4 pg 27.0-31.0 [facility] HospitalHxcixsxDLYERHUPTW4290-38-25 10:22:00 Test Item Value Reference Range Interpretation Comments MCV (test code = MCV) 80.3 80.0-98.0 [facility] HospitalHohjtjzYEYNQBEVXG6353-33-89 10:22:00 Test Item Value Reference Range Interpretation Comments MPV (test code = MPV) 11.4 7.4-10.4 [facility] HospitalRnmblrgXVZHAJDFCZ8883-73-79 10:22:00 Test Item Value Reference Range Interpretation Comments Platelet (test code = Platelet) 74 133-450 [facility] HospitalLywoydsRPSOCESPCV7144-43-72 10:22:00 Test Item Value Reference Range Interpretation Comments RBC (test code = RBC) 3.16 4.20-5.40 [facility] HospitalGtahfznNVDZKGDGWY4067-14-95 10:22:00 Test Item Value Reference Range Interpretation Comments WBC (test code = WBC) 5.3 3.7-10.4 [facility] HospitalDnuzmfkPWKCNOBMTB3581-27-28 10:22:00 Test Item Value Reference Range Interpretation Comments Hgb (test code = Hgb) 8.4 12.0-16.0 [facility] HospitalDhqtbzdNHVOSKCNYH5575-16-17 10:22:00 Test Item Value Reference Range Interpretation Comments Monocytes (test code = Monocytes) 14.5 2.0-12.0 [facility] HospitalFlmpkwzMZXYOSQNUV8432-95-65 10:22:00 Test Item Value Reference Range Interpretation Comments Lymphocytes (test code = Lymphocytes) 29.8 20.0-40.0 [facility] HospitalMbgvvagSJBKZOZCXP5038-88-86 10:22:00 Test Item Value Reference Range Interpretation Comments Eosinophils # (test code 0.1 See_Comment [A utomated message] The = Eosinophils #) system whic h generated this result tra nsmitted reference range : <=0.5. The reference r leo was not used to int erpret this result as normal/abnormal . [facility] HospitalKdhqdctBQVTPDDBVX7381-74-97 10:22:00 Test Item Value Reference Range Interpretation Comments Monocytes # (test code 0.8 See_Comment [Aut omated message] The = Monocytes #) system which generated this result tra nsmitted reference range : <=0.8. The reference r leo was not used to int erpret this result as normal/abnormal . [facility] HospitalRdmwntoPXGODESEYJ0067-15-09 10:22:00 Test Item Value Reference Range Interpretation Comments Segs-Bands # (test code = Segs-Bands #) 2.9 1.5-8.1 [facility] HospitalAqgnynqAGWARDDDXV3931-37-72 10:22:00 Test Item Value Reference Range Interpretation Comments Lymphocytes # (test code = Lymphocytes 1.6 1.0-5.5 #) [facility] HospitalAwmncaeFZGRTUQGUL8108-56-28 10:22:00 Test Item Value Reference Range Interpretation Comments Basophils (test code = 0.4 See_Comment [Aut omated message] The Basophils) system which ge nerated this result tra nsmitted reference range : <=1.0. The reference r leo was not used to int erpret this result as normal/abnormal . [facility] HospitalUaddckeWUGXIWDXSM4885-95-62 10:22:00 Test Item Value Reference Range Interpretation Comments Eosinophils (test code = 1.2 See_Comment [A utomated message] The Eosinophils) system which ge nerated this result tra nsmitted reference range : <=4.0. The reference r leo was not used to int erpret this result as normal/abnormal . [facility] HospitalCtcgowyUFPQSSWPOK1368-99-97 10:22:00 Test Item Value Reference Range Interpretation Comments Segs (test code = Segs) 54.1 45.0-75.0 [facility] [id number] 10:22:00 Test Item Value Reference Range Interpretation Comments Hgb A1C (test code = Hgb A1C) 8.9 [facility]aleCARDIAC [id number] 10:22:00 Test Item Value Reference Range Interpretation Comments Total CK (test code = Total CK) 190 12-191 [facility]aleShopReply [id number] 10:22:00 Test Item Value Reference Range Interpretation Comments Calcium Lvl (test code = Calcium Lvl) 7.8 8.5-10.5 [facility]Force-A [id number] 10:22:00 Test Item Value Reference Range Interpretation Comments CO2 (test code = CO2) 21 24-32 [facility]Force-A [id number] 10:22:00 Test Item Value Reference Range Interpretation Comments Sodium Lvl (test code = Sodium Lvl) 140 135-145 [facility]aleShopReply [id number] 10:22:00 Test Item Value Reference Range Interpretation Comments Potassium Lvl (test code = Potassium 3.8 3.5-5.1 Lvl) [facility] [id number] 10:22:00 Test Item Value Reference Range Interpretation [...] Phosphorus (test code = Phosphorus) 3.7 2.5-4.5 [facility] HospitalYdujuwzKTDUULUQIB5414-32-03 10:22:00 Test Item Value Reference Range Interpretation Comments RDW (test code = RDW) 17.7 11.5-14.5 [facility] HospitalUfjrmbuSFZYYJQGCL2202-35-20 10:22:00 Test Item Value Reference Range Interpretation Comments MCHC (test code = MCHC) 32.9 32.0-36.0 [facility] HospitalWjhgosoISITAUTJXI3421-33-61 10:22:00 Test Item Value Reference Range Interpretation Comments Hct (test code = Hct) 25.4 36.0-48.0 [facility] HospitalWwvpmmeLAEMXYBBBE2018-11-01 10:22:00 Test Item Value Reference Range Interpretation Comments MCH (test code = MCH) 26.4 pg 27.0-31.0 [facility] HospitalLjrfexiBMLFJSJJNO0373-31-98 10:22:00 Test Item Value Reference Range Interpretation Comments MCV (test code = MCV) 80.3 80.0-98.0 [facility] HospitalKikftcaLCHKEHQNMZ2894-53-63 10:22:00 Test Item Value Reference Range Interpretation Comments MPV (test code = MPV) 11.4 7.4-10.4 [facility] H[id number] 10:22:00 Test Item Value Reference Range Interpretation Comments Platelet (test code = Platelet) 74 133-450 [facility] HospitalWxapqpsJFREQQYGCN5179-79-62 10:22:00 Test Item Value Reference Range Interpretation Comments RBC (test code = RBC) 3.16 4.20-5.40 [facility] HospitalMprsibuQCLRIOUGBG4948-50-51 10:22:00 Test Item Value Reference Range Interpretation Comments WBC (test code = WBC) 5.3 3.7-10.4 [facility] HospitalXpcgqipLMKFNBJTKN2739-96-92 10:22:00 Test Item Value Reference Range Interpretation Comments Hgb (test code = Hgb) 8.4 12.0-16.0 [facility] HospitalBfxtoysJUYPZVHJLP8699-36-63 10:22:00 Test Item Value Reference Range Interpretation Comments Monocytes (test code = Monocytes) 14.5 2.0-12.0 [facility] HospitalDalrbjlNLTBZLLIAK7004-20-88 10:22:00 Test Item Value Reference Range Interpretation Comments Lymphocytes (test code = Lymphocytes) 29.8 20.0-40.0 [facility] HospitalPbarlurDUQDATJUTJ1964-10-58 10:22:00 Test Item Value Reference Range Interpretation Comments Eosinophils # (test code 0.1 See_Comment [A utomated message] The = Eosinophils #) system whic h generated this result tra nsmitted reference range : <=0.5. The reference r leo was not used to int erpret this result as normal/abnormal . [facility] HospitalKlcszcfYMSLGKEQIX8646-61-52 10:22:00 Test Item Value Reference Range Interpretation Comments Monocytes # (test code 0.8 See_Comment [Aut omated message] The = Monocytes #) system which generated this result tra nsmitted reference range : <=0.8. The reference r leo was not used to int erpret this result as normal/abnormal . [facility] HospitalXgwfxorZFKRXRORMM1260-23-09 10:22:00 Test Item Value Reference Range Interpretation Comments Segs-Bands # (test code = Segs-Bands #) 2.9 1.5-8.1 [facility] HospitalPaptfukHUDEXHCWNO7039-77-32 10:22:00 Test Item Value Reference Range Interpretation Comments Lymphocytes # (test code = Lymphocytes 1.6 1.0-5.5 #) [facility] HospitalCczqdgsZJKKPCWHYS8238-42-35 10:22:00 Test Item Value Reference Range Interpretation Comments Basophils (test code = 0.4 See_Comment [Aut omated message] The Basophils) system which ge nerated this result tra nsmitted reference range : <=1.0. The reference r leo was not used to int erpret this result as normal/abnormal . [facility] RegionMqoocgoKHDEOJXHIR0026-39-47 10:22:00 Test Item Value Reference Range Interpretation Comments Eosinophils (test code = 1.2 See_Comment [A utomated message] The Eosinophils) system which ge nerated this result tra nsmitted reference range : <=4.0. The reference r leo was not used to int erpret this result as normal/abnormal . [facility]aleDkrtbuqSNQSVQHKZN1543-61-08 10:22:00 Test Item Value Reference Range Interpretation Comments Segs (test code = Segs) 54.1 45.0-75.0 [facility] CKEYXFAYV4833-79-78 10:22:00 Test Item Value Reference Range Interpretation Comments Hgb A1C (test code = Hgb A1C) 8.9 [facility]aleCARDIAC [id number] 10:22:00 Test Item Value Reference Range Interpretation Comments Total CK (test code = Total CK) 190 12-191 [facility] [id number] 10:22:00 Test Item Value Reference Range Interpretation Comments Calcium Lvl (test code = Calcium Lvl) 7.8 8.5-10.5 [facility] [id number] 10:22:00 Test Item Value Reference Range Interpretation Comments CO2 (test code = CO2) 21 24-32 [facility] [id number] 10:22:00 Test Item Value Reference Range Interpretation Comments Sodium Lvl (test code = Sodium Lvl) 140 135-145 [facility] [id number] 10:22:00 Test Item Value Reference Range Interpretation Comments Potassium Lvl (test code = Potassium 3.8 3.5-5.1 Lvl) [facility] [id number] 10:22:00 Test Item Value Reference Range Interpretation Comments Chloride Lvl (test code = Chloride Lvl) 106 95-109 [facility] [id number] 10:22:00 Test Item Value Reference Range Interpretation Comments Bili Total (test code = Bili Total) 0.4 0.2-1.3 [facility] [id number] 10:22:00 Test Item Value Reference Range Interpretation [...] Phosphorus (test code = Phosphorus) 3.7 2.5-4.5 [facility] HospitalPobgfsyWGCLIOSMSV9967-33-56 10:22:00 Test Item Value Reference Range Interpretation Comments RDW (test code = RDW) 17.7 11.5-14.5 [facility] HospitalGeftgfdQUCSLOVQVT3947-82-07 10:22:00 Test Item Value Reference Range Interpretation Comments MCHC (test code = MCHC) 32.9 32.0-36.0 [facility] HospitalXfgktcvJLDFACCCKK2133-24-14 10:22:00 Test Item Value Reference Range Interpretation Comments Hct (test code = Hct) 25.4 36.0-48.0 [facility] HospitalEzwjzkdFOQWBDNHOF6974-14-62 10:22:00 Test Item Value Reference Range Interpretation Comments MCH (test code = MCH) 26.4 pg 27.0-31.0 [facility] HospitalMmbdpxmDOPCUVRIIC8028-11-00 10:22:00 Test Item Value Reference Range Interpretation Comments MCV (test code = MCV) 80.3 80.0-98.0 [facility] HospitalUhicruvTMCPASEFDG8046-39-42 10:22:00 Test Item Value Reference Range Interpretation Comments MPV (test code = MPV) 11.4 7.4-10.4 [facility] HospitalOmnwpotSRSPEKNBFZ3940-17-38 10:22:00 Test Item Value Reference Range Interpretation Comments Platelet (test code = Platelet) 74 133-450 [facility] HospitalQskpfpmRZCNCDMBRS8500-52-30 10:22:00 Test Item Value Reference Range Interpretation Comments RBC (test code = RBC) 3.16 4.20-5.40 [facility] HospitalOyvnmwaIHMOLZVHEB6324-34-35 10:22:00 Test Item Value Reference Range Interpretation Comments WBC (test code = WBC) 5.3 3.7-10.4 [facility] HospitalSbymzasOGGMWRAFCJ4894-55-75 10:22:00 Test Item Value Reference Range Interpretation Comments Hgb (test code = Hgb) 8.4 12.0-16.0 [facility] HospitalCrwwudvDVZGLRXOMY3740-83-01 10:22:00 Test Item Value Reference Range Interpretation Comments Monocytes (test code = Monocytes) 14.5 2.0-12.0 [facility] HospitalHyifhvpAKKLVOHZRW5634-22-66 10:22:00 Test Item Value Reference Range Interpretation Comments Lymphocytes (test code = Lymphocytes) 29.8 20.0-40.0 [facility] HospitalJiemvqtLIHHGUVMOU6126-52-73 10:22:00 Test Item Value Reference Range Interpretation Comments Eosinophils # (test code 0.1 See_Comment [A utomated message] The = Eosinophils #) system whic h generated this result tra nsmitted reference range : <=0.5. The reference r leo was not used to int erpret this result as normal/abnormal . [facility] HospitalRtcrywzWCNJOTCOEO8737-26-84 10:22:00 Test Item Value Reference Range Interpretation Comments Monocytes # (test code 0.8 See_Comment [Aut omated message] The = Monocytes #) system which generated this result tra nsmitted reference range : <=0.8. The reference r leo was not used to int erpret this result as normal/abnormal . [facility] HospitalQxghvmxQPGVMFJNBC2339-62-51 10:22:00 Test Item Value Reference Range Interpretation Comments Segs-Bands # (test code = Segs-Bands #) 2.9 1.5-8.1 [facility] HospitalIimpaniQWBNKRKIGB1722-57-68 10:22:00 Test Item Value Reference Range Interpretation Comments Lymphocytes # (test code = Lymphocytes 1.6 1.0-5.5 #) [facility] HospitalKdxljmgECAYALTAWO1173-46-95 10:22:00 Test Item Value Reference Range Interpretation Comments Basophils (test code = 0.4 See_Comment [Aut omated message] The Basophils) system which ge nerated this result tra nsmitted reference range : <=1.0. The reference r leo was not used to int erpret this result as normal/abnormal . [facility] HospitalBuzphfeOKDHEWPSQG0634-25-23 10:22:00 Test Item Value Reference Range Interpretation Comments Eosinophils (test code = 1.2 See_Comment [A utomated message] The Eosinophils) system which ge nerated this result tra nsmitted reference range : <=4.0. The reference r leo was not used to int erpret this result as normal/abnormal . [facility]aleQzwwoazQVSDVJMIOE0032-70-25 10:22:00 Test Item Value Reference Range Interpretation Comments Segs (test code = Segs) 54.1 45.0-75.0 [facility]aleSPECIAL AMIPNEKAD6548-33-97 10:22:00 Test Item Value Reference Range Interpretation Comments Hgb A1C (test code = Hgb A1C) 8.9 [facility]aleCARDIAC [id number] 17:40:00 Test Item Value Reference Range Interpretation Comments Total CK (test code = Total CK) 344 12-191 [facility]valeDizumigAGVKZVCGKM1440-77-35 17:40:00 Test Item Value Reference Range Interpretation Comments IVETTE (test code = IVETTE) Positive *ABN*(07/26/16 11:40 AM) [facility]aleWeyqxnhXHJKJCROIE1256-50-78 17:40:00 Test Item Value Reference Range Interpretation Comments ROOF SHINGLER Ab (test code = ROOF SHINGLER Ab) no gt [facility]valeYhattwgLJJNSVYWEV2431-03-62 17:40:00 Test Item Value Reference Range Interpretation Comments Sm Ab (test code = Sm Ab) no [facility]KghudxfGYDJVIEYCE5105-13-90 17:40:00 Test Item Value Reference Range Interpretation Comments IVETTE Interp (test code Pattern appears = IVETTE Interp) Nucleolar. [facility]aleCnkvysvTWFPUPMZLZ4402-43-33 17:40:00 Test Item Value Reference Range Interpretation Comments SS-B (La) Ab (test code = SS-B (La) Ab) no [facility] CenterUuxfxglOBFWAWUKEC5585-30-15 17:40:00 Test Item Value Reference Range Interpretation Comments SS-A (Ro) Ab (test code = SS-A (Ro) Ab) no [facility] CenterQwgikhgMKNTGOCSZL9683-16-26 17:40:00 Test Item Value Reference Range Interpretation Comments DNA Ab (DS) (test Negative (07/26/16 11:40 code = DNA Ab (DS)) AM) [facility] PlanoMopvkjuZHGTVAIXJV0938-91-25 17:40:00 Test Item Value Reference Range Interpretation Comments IVETTE Titer (test code = 1:40 *ABN*(07/26/16 IVETTE Titer) 11:40 AM) [facility]annK[facility] [id number] 17:40:00 Test Item Value Reference Range Interpretation Comments U Sodium (test code = U Sodium) 21 [facility] PlanoannCARAC HOVKNMN8712-42-60 17:40:00 Test Item Value Reference Range Interpretation Comments Total CK (test code = Total CK) 344 12-191 [facility] PlanoPkqxjrjOWJTBVXDRI0707-50-68 17:40:00 Test Item Value Reference Range Interpretation Comments IVETTE (test code = IVETTE) Positive *ABN*(07/26/16 11:40 AM) [facility] PlanoMdzczrvHHYVEDPUAL9497-15-53 17:40:00 Test Item Value Reference Range Interpretation Comments ROOF SHINGLER Ab (test code = ROOF SHINGLER Ab) no gt [facility] PlanoWgdnvbpKBPTCQDIML0671-56-12 17:40:00 Test Item Value Reference Range Interpretation Comments Sm Ab (test code = Sm Ab) no gt [facility] PlanoSsjugasVABVSJGGTK6610-44-82 17:40:00 Test Item Value Reference Range Interpretation Comments IVETTE Interp (test code Pattern appears = IVETTE Interp) Nucleolar. [facility] KyuqeihQARVHQSAYC4481-88-80 17:40:00 Test Item Value Reference Range Interpretation Comments SS-B (La) Ab (test code = SS-B (La) Ab) no gt [facility] PlanoDwgzisvTGMFQBQGRQ2112-97-30 17:40:00 Test Item Value Reference Range Interpretation Comments SS-A (Ro) Ab (test code = SS-A (Ro) Ab) no gt [facility] PlanoHmgrjwhJXBNGOCSID2274-80-87 17:40:00 Test Item Value Reference Range Interpretation Comments DNA Ab (DS) (test Negative (07/26/16 11:40 code = DNA Ab (DS)) AM) [facility] PlanoSyasesdGFNRXGWHME1512-82-97 17:40:00 Test Item Value Reference Range Interpretation Comments IVETTE Titer (test code = 1:40 *ABN*(07/26/16 IVETTE Titer) 11:40 AM) [facility] [id number] 17:40:00 Test Item Value Reference Range Interpretation Comments U Sodium (test code = U Sodium) 21 [facility] [id number] 17:40:00 Test Item Value Reference Range Interpretation Comments Total CK (test code = Total CK) 344 12-191 [facility]valeOytjnovQJWGGJCAMC1330-35-17 17:40:00 Test Item Value Reference Range Interpretation Comments IVETTE (test code = IVETTE) Positive *ABN*(07/26/16 11:40 AM) [facility] PqfcqqqDYEVOVWQLC7859-45-41 17:40:00 Test Item Value Reference Range Interpretation Comments ROOF SHINGLER Ab (test code = ROOF SHINGLER Ab) no gt [facility] JqqrsjpGOLFDDWVPL4489-64-71 17:40:00 Test Item Value Reference Range Interpretation Comments Sm Ab (test code = Sm Ab) no gt [facility] AvwnpflMDCLPERXTQ8955-41-29 17:40:00 Test Item Value Reference Range Interpretation Comments IVETTE Interp (test code Pattern appears = IVETTE Interp) Nucleolar. [facility] JybkfieLCURRUMDAW2146-04-51 17:40:00 Test Item Value Reference Range Interpretation Comments SS-B (La) Ab (test code = SS-B (La) Ab) no gt [facility] NwskbgtKKHJUDOWRE4140-70-04 17:40:00 Test Item Value Reference Range Interpretation Comments SS-A (Ro) Ab (test code = SS-A (Ro) Ab) no gt [facility] QodrfaiKDPUKLYWIA8711-46-51 17:40:00 Test Item Value Reference Range Interpretation Comments DNA Ab (DS) (test Negative (07/26/16 11:40 code = DNA Ab (DS)) AM) [facility] IlpsqouVQVNNLEFHP4350-39-49 17:40:00 Test Item Value Reference Range Interpretation Comments IVETTE Titer (test code = 1:40 *ABN*(07/26/16 IVETTE Titer) 11:40 AM) [facility]anoannURINE ZOVO4595-82-00 17:40:00 Test Item Value Reference Range Interpretation Comments U Sodium (test code = U Sodium) 21 [facility] HermannCARDIAC LCOZQDO4234-31-61 17:40:00 Test Item Value Reference Range Interpretation Comments Total CK (test code = Total CK) 344 12-191 [facility] BkxhwotTQLHBSDAKY4249-28-19 17:40:00 Test Item Value Reference Range Interpretation Comments IVETTE (test code = IVETTE) Positive *ABN*(07/26/16 11:40 AM) [facility] CyhveqrRDNFKJQRDP1986-00-83 17:40:00 Test Item Value Reference Range Interpretation Comments ROOF SHINGLER Ab (test code = ROOF SHINGLER Ab) no gt [facility] FnlujdgXHPDZDBQXV9421-07-34 17:40:00 Test Item Value Reference Range Interpretation Comments Sm Ab (test code = Sm Ab) no gt [facility] IoswnyjPAAXJOKWON2690-65-40 17:40:00 Test Item Value Reference Range Interpretation Comments IVETTE Interp (test code Pattern appears = IVETTE Interp) Nucleolar. [facility] NxofpnuIJCIYHIBMQ1684-16-98 17:40:00 Test Item Value Reference Range Interpretation Comments SS-B (La) Ab (test code = SS-B (La) Ab) no gt [facility] GobnhyoSJNOPZHGEO8472-85-06 17:40:00 Test Item Value Reference Range Interpretation Comments SS-A (Ro) Ab (test code = SS-A (Ro) Ab) no gt [facility] DgnhpaiGAQTYKGMAB0302-50-71 17:40:00 Test Item Value Reference Range Interpretation Comments DNA Ab (DS) (test Negative (07/26/16 11:40 code = DNA Ab (DS)) AM) [facility] PlanoYgqitagCYSZRAHBES8149-84-08 17:40:00 Test Item Value Reference Range Interpretation Comments IVETTE Titer (test code = 1:40 *ABN*(07/26/16 IVETTE Titer) 11:40 AM) [facility]annURINE [id number] 17:40:00 Test Item Value Reference Range Interpretation Comments U Sodium (test code = U Sodium) 21 [facility]annCARDIAC XGEURPX4920-86-96 17:40:00 Test Item Value Reference Range Interpretation Comments Total CK (test code = Total CK) 344 12-191 [facility] PlanoVcijtbuFXOUOCTHZJ2760-49-53 17:40:00 Test Item Value Reference Range Interpretation Comments IVETTE (test code = IVETTE) Positive *ABN*(07/26/16 11:40 AM) [facility] BgmtqwqFQEVJBJTOL6816-35-43 17:40:00 Test Item Value Reference Range Interpretation Comments ROOF SHINGLER Ab (test code = ROOF SHINGLER Ab) no gt [facility] HyvrngfHVXPSCJQCC8727-95-68 17:40:00 Test Item Value Reference Range Interpretation Comments Sm Ab (test code = Sm Ab) no [facility] KzwsfkvDNLPUNVRIP7346-57-93 17:40:00 Test Item Value Reference Range Interpretation Comments IVETTE Interp (test code Pattern appears = IVETTE Interp) Nucleolar. [facility] IioloucKVSJHBSJSN6652-18-75 17:40:00 Test Item Value Reference Range Interpretation Comments SS-B (La) Ab (test code = SS-B (La) Ab) no [facility] CenterXyiqvwvKWTTUEXDGF8481-08-86 17:40:00 Test Item Value Reference Range Interpretation Comments SS-A (Ro) Ab (test code = SS-A (Ro) Ab) no gt [facility]qurhwtHJXUTNFWHC9015-20-29 17:40:00 Test Item Value Reference Range Interpretation Comments DNA Ab (DS) (test Negative (07/26/16 11:40 code = DNA Ab (DS)) AM) [facility]PjydcjhSGRSHZPPQA9072-35-96 17:40:00 Test Item Value Reference Range Interpretation Comments IVETTE Titer (test code = 1:40 *ABN*(07/26/16 IVETTE Titer) 11:40 AM) [facility] [id number] 17:40:00 Test Item Value Reference Range Interpretation Comments U Sodium (test code = U Sodium) [facility]PbucmxlUGBKLQNADG0805-34-74 14:00:00 Test Item Value Reference Range Interpretation Comments INR (test code = INR) 1.11 0.85-1.17 [facility] RegionOnsodbwOLHVKSOOYF9170-32-37 14:00:00 Test Item Value Reference Range Interpretation Comments PT (test code = PT) 14.5 s 12.0-14.7 [facility]YlnqqgvJAFNVAKFLS9766-56-45 14:00:00 Test Item Value Reference Range Interpretation Comments Hep A IgM (test code Negative *NA*(07/26/16 = Hep A IgM) 8:00 AM) [facility]alePzkgiqvFHJECFOVDP3951-15-81 14:00:00 Test Item Value Reference Range Interpretation Comments Hep B Core IgM (test Negative *NA*(07/26/16 code = Hep B Core 8:00 AM) IgM) [facility]UuwxsgbIMMYHQXRPN5059-55-55 14:00:00 Test Item Value Reference Range Interpretation Comments Hep C Ab (test code = Negative *NA*(07/26/16 Hep C Ab) 8:00 AM) [facility]QknkgclRQANWILJAG1685-98-49 14:00:00 Test Item Value Reference Range Interpretation Comments Hep Bs Ag (test code Negative *NA*(07/26/16 = Hep Bs Ag) 8:00 AM) [facility]aleGeuusodQXNBPNWINJ0117-78-93 14:00:00 Test Item Value Reference Range Interpretation Comments INR (test code = INR) 1.11 0.85-1.17 [facility]HdxohfkHIRNXOIFEY3655-10-51 14:00:00 Test Item Value Reference Range Interpretation Comments PT (test code = PT) 14.5 s 12.0-14.7 [facility]ZtvqwrrSGEAMLBONW3344-88-68 14:00:00 Test Item Value Reference Range Interpretation Comments Hep A IgM (test code Negative *NA*(07/26/16 = Hep A IgM) 8:00 AM) [facility] HospitalCnnctymIXIYOILPJG4559-99-22 14:00:00 Test Item Value Reference Range Interpretation Comments Hep B Core IgM (test Negative *NA*(07/26/16 code = Hep B Core 8:00 AM) IgM) [facility] HospitalDqpyuxdHGSYKERUKO5223-38-05 14:00:00 Test Item Value Reference Range Interpretation Comments Hep C Ab (test code = Negative *NA*(07/26/16 Hep C Ab) 8:00 AM) [facility] HospitalQencrpkQAVHIRSYAE4729-24-37 14:00:00 Test Item Value Reference Range Interpretation Comments Hep Bs Ag (test code Negative *NA*(07/26/16 = Hep Bs Ag) 8:00 AM) [facility] HospitalAnxbqyaKXCKPOEKIT8575-65-91 14:00:00 Test Item Value Reference Range Interpretation Comments INR (test code = INR) 1.11 0.85-1.17 [facility] HospitalAoyrxqaFMBPTTFBPJ0087-84-55 14:00:00 Test Item Value Reference Range Interpretation Comments PT (test code = PT) 14.5 s 12.0-14.7 [facility] HospitalYdjeowtXAOHEEUCRG2723-56-98 14:00:00 Test Item Value Reference Range Interpretation Comments Hep A IgM (test code Negative *NA*(07/26/16 = Hep A IgM) 8:00 AM) [facility] HospitalWjdhokmXURSQDMBFP2136-10-48 14:00:00 Test Item Value Reference Range Interpretation Comments Hep B Core IgM (test Negative *NA*(07/26/16 code = Hep B Core 8:00 AM) IgM) [facility] HospitalExldamuKSALBNZMSC7095-40-00 14:00:00 Test Item Value Reference Range Interpretation Comments Hep C Ab (test code = Negative *NA*(07/26/16 Hep C Ab) 8:00 AM) [facility] HospitalZufxiamCNMCWXFNRN4282-59-80 14:00:00 Test Item Value Reference Range Interpretation Comments Hep Bs Ag (test code Negative *NA*(07/26/16 = Hep Bs Ag) 8:00 AM) [facility] HospitalFhpwnndDNJMLRWTDS4459-39-29 14:00:00 Test Item Value Reference Range Interpretation Comments INR (test code = INR) 1.11 0.85-1.17 [facility] HospitalUrtadhcCAMGQKCVVN5667-31-76 14:00:00 Test Item Value Reference Range Interpretation Comments PT (test code = PT) 14.5 s 12.0-14.7 [facility] HospitalLwrumhuYPBPBMLZWP1163-51-96 14:00:00 Test Item Value Reference Range Interpretation Comments Hep A IgM (test code Negative *NA*(07/26/16 = Hep A IgM) 8:00 AM) [facility] HospitalYmgtgdcJZNKQZDDEO6241-69-41 14:00:00 Test Item Value Reference Range Interpretation Comments Hep B Core IgM (test Negative *NA*(07/26/16 code = Hep B Core 8:00 AM) IgM) [facility] HospitalJwqxiajNQRJISWADH5882-79-17 14:00:00 Test Item Value Reference Range Interpretation Comments Hep C Ab (test code = Negative *NA*(07/26/16 Hep C Ab) 8:00 AM) [facility] HospitalYcmplhmOTAYYESQHI9552-39-05 14:00:00 Test Item Value Reference Range Interpretation Comments Hep Bs Ag (test code Negative *NA*(07/26/16 = Hep Bs Ag) 8:00 AM) [facility] HospitalXmrsuieOMGBVWSQWE1674-20-07 14:00:00 Test Item Value Reference Range Interpretation Comments INR (test code = INR) 1.11 0.85-1.17 [facility] HospitalZvlbssyMSWNWVQWXW1070-48-59 14:00:00 Test Item Value Reference Range Interpretation Comments PT (test code = PT) 14.5 s 12.0-14.7 [facility] HospitalImybgdgPTCUIAGPVQ7222-89-25 14:00:00 Test Item Value Reference Range Interpretation Comments Hep A IgM (test code Negative *NA*(07/26/16 = Hep A IgM) 8:00 AM) [facility] HospitalFducekqRKCFMEJTLR0709-40-67 14:00:00 Test Item Value Reference Range Interpretation Comments Hep B Core IgM (test Negative *NA*(07/26/16 code = Hep B Core 8:00 AM) IgM) [facility] HospitalRfydidqARYUOOGHXZ5535-42-67 14:00:00 Test Item Value Reference Range Interpretation Comments Hep C Ab (test code = Negative *NA*(07/26/16 Hep C Ab) 8:00 AM) [facility]aleKwqqazwAKRZVFNWOS0881-38-15 14:00:00 Test Item Value Reference Range Interpretation [...] (test code = Magnesium 2.1 1.8-2.4 Lvl) [facility] HospitalFfponpeHWPBQDYYYF9502-85-47 10:42:00 Test Item Value Reference Range Interpretation Comments Acanthocyte (test code = Acanthocyte) Slight [facility] HospitalStbovntPLEYXHFDLU2403-87-39 10:42:00 Test Item Value Reference Range Interpretation Comments Rouleaux (test code = Present *ABN*(07/26/16 Rouleaux) 4:42 AM) [facility] HospitalTejmkheFKGNGVVOYB6340-60-40 10:42:00 Test Item Value Reference Range Interpretation Comments Anisocyte (test code = 1+ *ABN*(07/26/16 4:42 Anisocyte) AM) [facility] HospitalFzvulkzWONCXLQGHW4392-50-07 10:42:00 Test Item Value Reference Range Interpretation Comments Basophils # (test code 0.1 See_Comment [Aut omated message] The = Basophils #) system which generated this result tra nsmitted reference range : <=0.2. The reference r leo was not used to int erpret this result as normal/abnormal . [facility] HospitalNjybskuPRIGIUTVMJ3143-74-21 10:42:00 Test Item Value Reference Range Interpretation Comments Large Plt (test code Moderate *ABN*(07/26/16 = Large Plt) 4:42 AM) [facility]aleXdscvmlSDRGSATQXE2849-99-56 10:42:00 Test Item Value Reference Range Interpretation [...] (test code = Magnesium 2.1 1.8-2.4 Lvl) [facility] HospitalSuttowuFLEGCPSAOX4345-50-17 10:42:00 Test Item Value Reference Range Interpretation Comments Acanthocyte (test code = Acanthocyte) Slight [facility] HospitalEwwpvajFZCCWXUIQY1488-88-41 10:42:00 Test Item Value Reference Range Interpretation Comments Rouleaux (test code = Present *ABN*(07/26/16 Rouleaux) 4:42 AM) [facility] HospitalGrccgaeUYGTDDXQBC7996-69-56 10:42:00 Test Item Value Reference Range Interpretation Comments Anisocyte (test code = 1+ *ABN*(07/26/16 4:42 Anisocyte) AM) [facility] HospitalXwapvqgUSLHBCQCLX2172-96-16 10:42:00 Test Item Value Reference Range Interpretation Comments Basophils # (test code 0.1 See_Comment [Aut omated message] The = Basophils #) system which generated this result tra nsmitted reference range : <=0.2. The reference r leo was not used to int erpret this result as normal/abnormal . [facility] RegionQrzearrTWJJUAFHCM5818-11-76 10:42:00 Test Item Value Reference Range Interpretation Comments Large Plt (test code Moderate *ABN*(07/26/16 = Large Plt) 4:42 AM) [facility]aleKfshsdoVSEFJAQLKV6077-07-67 10:42:00 Test Item Value Reference Range Interpretation [...] (test code = Magnesium 2.1 1.8-2.4 Lvl) [facility] HospitalAvidalzFLUREBJFWZ4684-02-24 10:42:00 Test Item Value Reference Range Interpretation Comments Acanthocyte (test code = Acanthocyte) Slight [facility] HospitalRahspqqZZRJYLDTBL8387-21-29 10:42:00 Test Item Value Reference Range Interpretation Comments Rouleaux (test code = Present *ABN*(07/26/16 Rouleaux) 4:42 AM) [facility] HospitalHfcnxfqIYPJWCGUPS4892-53-07 10:42:00 Test Item Value Reference Range Interpretation Comments Anisocyte (test code = 1+ *ABN*(07/26/16 4:42 Anisocyte) AM) [facility] HospitalQytqapcOLGTNVETFU9904-92-54 10:42:00 Test Item Value Reference Range Interpretation Comments Basophils # (test code 0.1 See_Comment [Aut omated message] The = Basophils #) system which generated this result tra nsmitted reference range : <=0.2. The reference r leo was not used to int erpret this result as normal/abnormal . [facility]aleQjloyykBAFKCBKWWH8334-03-43 10:42:00 Test Item Value Reference Range Interpretation Comments Large Plt (test code Moderate *ABN*(07/26/16 = Large Plt) 4:42 AM) [facility]aleBnpbwlxLJZXNLHGFO3465-33-91 10:42:00 Test Item Value Reference Range Interpretation [...] (test code = Magnesium 2.1 1.8-2.4 Lvl) [facility] HospitalHrhggkgAWZJMVQBUG7811-62-60 10:42:00 Test Item Value Reference Range Interpretation Comments Acanthocyte (test code = Acanthocyte) Slight [facility] HospitalJwztojoYDRIVEKTOM2170-62-54 10:42:00 Test Item Value Reference Range Interpretation Comments Rouleaux (test code = Present *ABN*(07/26/16 Rouleaux) 4:42 AM) [facility] HospitalZyipsqhMXIAAOVVTE7069-78-51 10:42:00 Test Item Value Reference Range Interpretation Comments Anisocyte (test code = 1+ *ABN*(07/26/16 4:42 Anisocyte) AM) [facility] HospitalMylrahgYJJYWQRLCL5810-27-18 10:42:00 Test Item Value Reference Range Interpretation Comments Basophils # (test code 0.1 See_Comment [Aut omated message] The = Basophils #) system which generated this result tra nsmitted reference range : <=0.2. The reference r leo was not used to int erpret this result as normal/abnormal . [facility] HospitalDendcpxHFXFPGJZKX2393-24-79 10:42:00 Test Item Value Reference Range Interpretation Comments Large Plt (test code Moderate *ABN*(07/26/16 = Large Plt) 4:42 AM) [facility] HospitalWjobzzvAGOBWSDFER0882-62-67 10:42:00 Test Item Value Reference Range Interpretation [...] l/abnormal. [facility] HMDUJ2765-67-28 10:42:00 Test Item Value Reference Range Interpretation Comments Total Protein (test code = Total 5.5 6.4-8.4 Protein) [facility] [id number] 10:42:00 Test Item Value Reference Range Interpretation Comments Globulin (test code = Globulin) 3.7 2.7-4.2 [facility] [id number] 10:42:00 Test Item Value Reference Range Interpretation Comments Albumin Lvl (test code = Albumin Lvl) 1.8 3.5-5.0 [facility] [id number] 10:42:00 Test Item Value Reference Range Interpretation Comments Magnesium Lvl (test code = Magnesium 2.1 1.8-2.4 Lvl) [facility] HospitalXooaafhPCWASPPXYI7201-28-61 10:42:00 Test Item Value Reference Range Interpretation Comments Acanthocyte (test code = Acanthocyte) Slight [facility] HospitalWogkhtoBQTXFRQCFJ9873-07-36 10:42:00 Test Item Value Reference Range Interpretation Comments Rouleaux (test code = Present *ABN*(07/26/16 Rouleaux) 4:42 AM) [facility] HospitalMfcmrtbZEFPXIYKTC0094-49-70 10:42:00 Test Item Value Reference Range Interpretation Comments Anisocyte (test code = 1+ *ABN*(07/26/16 4:42 Anisocyte) AM) [facility] HospitalQhlipphHZPKNZLDYI0698-03-21 10:42:00 Test Item Value Reference Range Interpretation Comments Basophils # (test code 0.1 See_Comment [Aut omated message] The = Basophils #) system which generated this result tra nsmitted reference range : <=0.2. The reference r leo was not used to int erpret this result as normal/abnormal . [facility] RegionLpzscrkLBLVFQNVNH5472-11-99 10:42:00 Test Item Value Reference Range Interpretation Comments Large Plt (test code Moderate *ABN*(07/26/16 = Large Plt) 4:42 AM) [facility]aleQdmfxuoUTTEJUIFKQ6672-88-89 10:42:00 Test Item Value Reference Range Interpretation Comments C4 Complement (test code = C4 42 16-47 Complement) [facility] AND [id number] 16:34:00 Test Item Value Reference Range Interpretation Comments UA Sq Epi (test code = UA Sq Epi) None Seen [facility] AND [id number] 16:34:00 Test Item Value Reference Range Interpretation Comments UA Waxy Cast (test code = UA Waxy Cast) 1 [facility] AND [id number] 16:34:00 Test Item Value Reference Range Interpretation Comments UA Hyal Cast (test 4 See_Comment [Automat ed message] The code = UA Hyal Cast) system which generated this result transmit rohit reference range : <=2. The reference range was not used to interpr et this result as reji l/abnormal. [facility] AND [id number] 16:34:00 Test Item Value Reference Range Interpretation Comments UA Bacteria (test code = UA Occasional /HPF Bacteria) [facility] AND [id number] 16:34:00 Test Item Value Reference Range Interpretation Comments UA Mucus (test code = UA Mucus) Few /LPF [facility] AND [id number] 16:34:00 Test Item Value Reference Range Interpretation Comments UA Amorph Destiny (test code = Occasional /HPF UA Amorph Destiny) [facility] AND [id number] 16:34:00 Test Item Value Reference Range Interpretation Comments UA Leuk Est (test Negative (07/25/16 10:34 code = UA Leuk Est) AM) [facility] AND [id number] 16:34:00 Test Item Value Reference Range Interpretation Comments UA Nitrite (test code Negative (07/25/16 10:34 = UA Nitrite) AM) [facility] AND [id number] 16:34:00 Test Item Value Reference Range Interpretation Comments UA RBC (test code = 2 See_Comment [Automa rohit message] The UA RBC) system which ge nerated this result transmit rohit reference range : <=2. The reference range was not used to interpr et this result as reji l/abnormal. [facility] AND [id number] 16:34:00 Test Item Value Reference Range Interpretation Comments UA WBC (test code = 6 See_Comment [Automa rohit message] The UA WBC) system which ge nerated this result transmit rohit reference range : <=5. The reference range was not used to interpr et this result as reji l/abnormal. [facility] AND [id number] 16:34:00 Test Item Value Reference Range Interpretation Comments UA Urobilinogen (test code = UA 2.0 0.1-1.0 Urobilinogen) [facility] AND [id number] 16:34:00 Test Item Value Reference Range Interpretation Comments UA Ketones (test code = UA Negative mg/dL Ketones) [facility] AND [id number] 16:34:00 Test Item Value Reference Range Interpretation Comments UA Glucose (test code = UA Glucose) 70 mg/dL [facility] AND [id number] 16:34:00 Test Item Value Reference Range Interpretation Comments UA Blood (test code = Negative (07/25/16 10:34 UA Blood) AM) [facility] AND [id number] 16:34:00 Test Item Value Reference Range Interpretation Comments UA Bili (test code = Negative *NA*(07/25/16 UA Bili) 10:34 AM) [facility] AND [id number] 16:34:00 Test Item Value Reference Range Interpretation Comments UA Protein (test code = UA >=300 mg/dL Protein) [facility] AND [id number] 16:34:00 Test Item Value Reference Range Interpretation Comments UA Spec Grav (test code = UA Spec Grav) 1.012 [facility] AND [id number] 16:34:00 Test Item Value Reference Range Interpretation Comments UA pH (test code = UA pH) 5.5 5.0-8.0 [facility] AND [id number] 16:34:00 Test Item Value Reference Range Interpretation Comments UA Turbidity (test code Slight *ABN*(07/25/16 = UA Turbidity) 10:34 AM) [facility] AND [id number] 16:34:00 Test Item Value Reference Range Interpretation Comments UA Color (test code = Dark Yellow *NA*(07/25/16 UA Color) 10:34 AM) [facility] AND [id number] 16:34:00 Test Item Value Reference Range Interpretation Comments UA Gran Cast (test code = UA Gran Cast) 9 [facility] [id number] 16:34:00 Test Item Value Reference Range Interpretation Comments U Sodium (test code = U Sodium) 30 [facility]2017-02-04 16:34:00 Test Item Value Reference Range Interpretation Comments U Prot/Creat (test code = U Prot/Creat) 3.1 [facility]2017-02-04 16:34:00 Test Item Value Reference Range Interpretation Comments U Protein (test code = U Protein) 420.9 [facility]2017-02-04 16:34:00 Test Item Value Reference Range Interpretation Comments U Creatinine (test code = U 136.00 Creatinine) [facility] AND [id number] 16:34:00 Test Item Value Reference Range Interpretation Comments UA Sq Epi (test code = UA Sq Epi) None Seen [facility] AND [id number] 16:34:00 Test Item Value Reference Range Interpretation Comments UA Waxy Cast (test code = UA Waxy Cast) 1 [facility] AND [id number] 16:34:00 Test Item Value Reference Range Interpretation Comments UA Hyal Cast (test 4 See_Comment [Automat ed message] The code = UA Hyal Cast) system which generated this result transmit rohit reference range : <=2. The reference range was not used to interpr et this result as reji l/abnormal. [facility] AND [id number] 16:34:00 Test Item Value Reference Range Interpretation Comments UA Bacteria (test code = UA Occasional /HPF Bacteria) [facility] AND [id number] 16:34:00 Test Item Value Reference Range Interpretation Comments UA Mucus (test code = UA Mucus) Few /LPF [facility] AND [id number] 16:34:00 Test Item Value Reference Range Interpretation Comments UA Amorph Destiny (test code = Occasional /HPF UA Amorph Destiny) [facility] AND [id number] 16:34:00 Test Item Value Reference Range Interpretation Comments UA Leuk Est (test Negative (07/25/16 10:34 code = UA Leuk Est) AM) [facility] AND [id number] 16:34:00 Test Item Value Reference Range Interpretation Comments UA Nitrite (test code Negative (07/25/16 10:34 = UA Nitrite) AM) [facility] AND [id number] 16:34:00 Test Item Value Reference Range Interpretation Comments UA RBC (test code = 2 See_Comment [Automa rohit message] The UA RBC) system which ge nerated this result transmit rohit reference range : <=2. The reference range was not used to interpr et this result as reji l/abnormal. [facility] AND [id number] 16:34:00 Test Item Value Reference Range Interpretation Comments UA WBC (test code = 6 See_Comment [Automa rohit message] The UA WBC) system which ge nerated this result transmit rohit reference range : <=5. The reference range was not used to interpr et this result as reji l/abnormal. [facility] AND [id number] 16:34:00 Test Item Value Reference Range Interpretation Comments UA Urobilinogen (test code = UA 2.0 0.1-1.0 Urobilinogen) [facility] AND [id number] 16:34:00 Test Item Value Reference Range Interpretation Comments UA Ketones (test code = UA Negative mg/dL Ketones) [facility] AND [id number] 16:34:00 Test Item Value Reference Range Interpretation Comments UA Glucose (test code = UA Glucose) 70 mg/dL [facility] AND [id number] 16:34:00 Test Item Value Reference Range Interpretation Comments UA Blood (test code = Negative (07/25/16 10:34 UA Blood) AM) [facility] AND [id number] 16:34:00 Test Item Value Reference Range Interpretation Comments UA Bili (test code = Negative *NA*(07/25/16 UA Bili) 10:34 AM) [facility] AND [id number] 16:34:00 Test Item Value Reference Range Interpretation Comments UA Protein (test code = UA >=300 mg/dL Protein) [facility] AND [id number] 16:34:00 Test Item Value Reference Range Interpretation Comments UA Spec Grav (test code = UA Spec Grav) 1.012 [facility] AND [id number] 16:34:00 Test Item Value Reference Range Interpretation Comments UA pH (test code = UA pH) 5.5 5.0-8.0 [facility] AND [id number] 16:34:00 Test Item Value Reference Range Interpretation Comments UA Turbidity (test code Slight *ABN*(07/25/16 = UA Turbidity) 10:34 AM) [facility] AND [id number] 16:34:00 Test Item Value Reference Range Interpretation Comments UA Color (test code = Dark Yellow *NA*(07/25/16 UA Color) 10:34 AM) [facility] AND [id number] 16:34:00 Test Item Value Reference Range Interpretation Comments UA Gran Cast (test code = UA Gran Cast) 9 [facility] [id number] 16:34:00 Test Item Value Reference Range Interpretation Comments U Sodium (test code = U Sodium) 30 [facility] [id number] 16:34:00 Test Item Value Reference Range Interpretation Comments U Prot/Creat (test code = U Prot/Creat) 3.1 [facility]2017-02-04 16:34:00 Test Item Value Reference Range Interpretation Comments U Protein (test code = U Protein) 420.9 [facility]2017-02-04 16:34:00 Test Item Value Reference Range Interpretation Comments U Creatinine (test code = U 136.00 Creatinine) [facility] AND [id number] 16:34:00 Test Item Value Reference Range Interpretation Comments UA Sq Epi (test code = UA Sq Epi) None Seen [facility] AND [id number] 16:34:00 Test Item Value Reference Range Interpretation Comments UA Waxy Cast (test code = UA Waxy Cast) 1 [facility] AND [id number] 16:34:00 Test Item Value Reference Range Interpretation Comments UA Hyal Cast (test 4 See_Comment [Automat ed message] The code = UA Hyal Cast) system which generated this result transmit rohit reference range : <=2. The reference range was not used to interpr et this result as reji l/abnormal. [facility] AND [id number] 16:34:00 Test Item Value Reference Range Interpretation Comments UA Bacteria (test code = UA Occasional /HPF Bacteria) [facility] AND [id number] 16:34:00 Test Item Value Reference Range Interpretation Comments UA Mucus (test code = UA Mucus) Few /LPF [facility] AND [id number] 16:34:00 Test Item Value Reference Range Interpretation Comments UA Amorph Destiny (test code = Occasional /HPF UA Amorph Destiny) [facility] AND [id number] 16:34:00 Test Item Value Reference Range Interpretation Comments UA Leuk Est (test Negative (07/25/16 10:34 code = UA Leuk Est) AM) [facility] AND [id number] 16:34:00 Test Item Value Reference Range Interpretation Comments UA Nitrite (test code Negative (07/25/16 10:34 = UA Nitrite) AM) [facility] AND [id number] 16:34:00 Test Item Value Reference Range Interpretation Comments UA RBC (test code = 2 See_Comment [Automa rohit message] The UA RBC) system which ge nerated this result transmit rohit reference range : <=2. The reference range was not used to interpr et this result as reji l/abnormal. [facility] AND [id number] 16:34:00 Test Item Value Reference Range Interpretation Comments UA WBC (test code = 6 See_Comment [Automa rohit message] The UA WBC) system which ge nerated this result transmit rohit reference range : <=5. The reference range was not used to interpr et this result as reji l/abnormal. [facility] AND [id number] 16:34:00 Test Item Value Reference Range Interpretation Comments UA Urobilinogen (test code = UA 2.0 0.1-1.0 Urobilinogen) [facility] AND [id number] 16:34:00 Test Item Value Reference Range Interpretation Comments UA Ketones (test code = UA Negative mg/dL Ketones) [facility] AND [id number] 16:34:00 Test Item Value Reference Range Interpretation Comments UA Glucose (test code = UA Glucose) 70 mg/dL [facility] AND [id number] 16:34:00 Test Item Value Reference Range Interpretation Comments UA Blood (test code = Negative (07/25/16 10:34 UA Blood) AM) [facility] AND [id number] 16:34:00 Test Item Value Reference Range Interpretation Comments UA Bili (test code = Negative *NA*(07/25/16 UA Bili) 10:34 AM) [facility] AND [id number] 16:34:00 Test Item Value Reference Range Interpretation Comments UA Protein (test code = UA >=300 mg/dL Protein) [facility] AND [id number] 16:34:00 Test Item Value Reference Range Interpretation Comments UA Spec Grav (test code = UA Spec Grav) 1.012 [facility] AND [id number] 16:34:00 Test Item Value Reference Range Interpretation Comments UA pH (test code = UA pH) 5.5 5.0-8.0 [facility] AND [id number] 16:34:00 Test Item Value Reference Range Interpretation Comments UA Turbidity (test code Slight *ABN*(07/25/16 = UA Turbidity) 10:34 AM) [facility] AND [id number] 16:34:00 Test Item Value Reference Range Interpretation Comments UA Color (test code = Dark Yellow *NA*(07/25/16 UA Color) 10:34 AM) [facility] AND [id number] 16:34:00 Test Item Value Reference Range Interpretation Comments UA Gran Cast (test code = UA Gran Cast) 9 [facility]2017-02-04 16:34:00 Test Item Value Reference Range Interpretation Comments U Sodium (test code = U Sodium) 30 [facility]2017-02-04 16:34:00 Test Item Value Reference Range Interpretation Comments U Prot/Creat (test code = U Prot/Creat) 3.1 [facility]2017-02-04 16:34:00 Test Item Value Reference Range Interpretation Comments U Protein (test code = U Protein) 420.9 [facility]2017-02-04 16:34:00 Test Item Value Reference Range Interpretation Comments U Creatinine (test code = U 136.00 Creatinine) [facility] AND [id number] 16:34:00 Test Item Value Reference Range Interpretation Comments UA Sq Epi (test code = UA Sq Epi) None Seen [facility] AND [id number] 16:34:00 Test Item Value Reference Range Interpretation Comments UA Waxy Cast (test code = UA Waxy Cast) 1 [facility] AND [id number] 16:34:00 Test Item Value Reference Range Interpretation Comments UA Hyal Cast (test 4 See_Comment [Automat ed message] The code = UA Hyal Cast) system which generated this result transmit rohit reference range : <=2. The reference range was not used to interpr et this result as reji l/abnormal. [facility] AND [id number] 16:34:00 Test Item Value Reference Range Interpretation Comments UA Bacteria (test code = UA Occasional /HPF Bacteria) [facility] AND [id number] 16:34:00 Test Item Value Reference Range Interpretation Comments UA Mucus (test code = UA Mucus) Few /LPF [facility] AND [id number] 16:34:00 Test Item Value Reference Range Interpretation Comments UA Amorph Destiny (test code = Occasional /HPF UA Amorph Destiny) [facility] AND [id number] 16:34:00 Test Item Value Reference Range Interpretation Comments UA Leuk Est (test Negative (07/25/16 10:34 code = UA Leuk Est) AM) [facility] AND [id number] 16:34:00 Test Item Value Reference Range Interpretation Comments UA Nitrite (test code Negative (07/25/16 10:34 = UA Nitrite) AM) [facility] AND [id number] 16:34:00 Test Item Value Reference Range Interpretation Comments UA RBC (test code = 2 See_Comment [Automa rohit message] The UA RBC) system which ge nerated this result transmit rohit reference range : <=2. The reference range was not used to interpr et this result as reji l/abnormal. [facility] AND [id number] 16:34:00 Test Item Value Reference Range Interpretation Comments UA WBC (test code = 6 See_Comment [Automa rohit message] The UA WBC) system which ge nerated this result transmit rohit reference range : <=5. The reference range was not used to interpr et this result as reji l/abnormal. [facility] AND [id number] 16:34:00 Test Item Value Reference Range Interpretation Comments UA Urobilinogen (test code = UA 2.0 0.1-1.0 Urobilinogen) [facility] AND [id number] 16:34:00 Test Item Value Reference Range Interpretation Comments UA Ketones (test code = UA Negative mg/dL Ketones) [facility] AND [id number] 16:34:00 Test Item Value Reference Range Interpretation Comments UA Glucose (test code = UA Glucose) 70 mg/dL [facility] AND [id number] 16:34:00 Test Item Value Reference Range Interpretation Comments UA Blood (test code = Negative (07/25/16 10:34 UA Blood) AM) [facility] AND [id number] 16:34:00 Test Item Value Reference Range Interpretation Comments UA Bili (test code = Negative *NA*(07/25/16 UA Bili) 10:34 AM) [facility] AND [id number] 16:34:00 Test Item Value Reference Range Interpretation Comments UA Protein (test code = UA >=300 mg/dL Protein) [facility] AND [id number] 16:34:00 Test Item Value Reference Range Interpretation Comments UA Spec Grav (test code = UA Spec Grav) 1.012 [facility] AND [id number] 16:34:00 Test Item Value Reference Range Interpretation Comments UA pH (test code = UA pH) 5.5 5.0-8.0 [facility] AND [id number] 16:34:00 Test Item Value Reference Range Interpretation Comments UA Turbidity (test code Slight *ABN*(07/25/16 = UA Turbidity) 10:34 AM) [facility] AND [id number] 16:34:00 Test Item Value Reference Range Interpretation Comments UA Color (test code = Dark Yellow *NA*(07/25/16 UA Color) 10:34 AM) [facility] AND [id number] 16:34:00 Test Item Value Reference Range Interpretation Comments UA Gran Cast (test code = UA Gran Cast) 9 [facility] [id number] 16:34:00 Test Item Value Reference Range Interpretation Comments U Sodium (test code = U Sodium) 30 [facility] [id number] 16:34:00 Test Item Value Reference Range Interpretation Comments U Prot/Creat (test code = U Prot/Creat) 3.1 [facility] [id number] 16:34:00 Test Item Value Reference Range Interpretation Comments U Protein (test code = U Protein) 420.9 [facility] [id number] 16:34:00 Test Item Value Reference Range Interpretation Comments U Creatinine (test code = U 136.00 Creatinine) [facility] AND [id number] 16:34:00 Test Item Value Reference Range Interpretation Comments UA Sq Epi (test code = UA Sq Epi) None Seen [facility] AND [id number] 16:34:00 Test Item Value Reference Range Interpretation Comments UA Waxy Cast (test code = UA Waxy Cast) 1 [facility] AND [id number] 16:34:00 Test Item Value Reference Range Interpretation Comments UA Hyal Cast (test 4 See_Comment [Automat ed message] The code = UA Hyal Cast) system which generated this result transmit rohit reference range : <=2. The reference range was not used to interpr et this result as reji l/abnormal. [facility] AND [id number] 16:34:00 Test Item Value Reference Range Interpretation Comments UA Bacteria (test code = UA Occasional /HPF Bacteria) [facility] AND [id number] 16:34:00 Test Item Value Reference Range Interpretation Comments UA Mucus (test code = UA Mucus) Few /LPF [facility] AND [id number] 16:34:00 Test Item Value Reference Range Interpretation Comments UA Amorph Destiny (test code = Occasional /HPF UA Amorph Destiny) [facility] AND [id number] 16:34:00 Test Item Value Reference Range Interpretation Comments UA Leuk Est (test Negative (07/25/16 10:34 code = UA Leuk Est) AM) [facility] AND [id number] 16:34:00 Test Item Value Reference Range Interpretation Comments UA Nitrite (test code Negative (07/25/16 10:34 = UA Nitrite) AM) [facility] AND [id number] 16:34:00 Test Item Value Reference Range Interpretation Comments UA RBC (test code = 2 See_Comment [Automa rohit message] The UA RBC) system which ge nerated this result transmit rohit reference range : <=2. The reference range was not used to interpr et this result as reji l/abnormal. [facility] AND [id number] 16:34:00 Test Item Value Reference Range Interpretation Comments UA WBC (test code = 6 See_Comment [Automa rohit message] The UA WBC) system which ge nerated this result transmit rohit reference range : <=5. The reference range was not used to interpr et this result as reji l/abnormal. [facility] AND [id number] 16:34:00 Test Item Value Reference Range Interpretation Comments UA Urobilinogen (test code = UA 2.0 0.1-1.0 Urobilinogen) [facility] AND [id number] 16:34:00 Test Item Value Reference Range Interpretation Comments UA Ketones (test code = UA Negative mg/dL Ketones) [facility] AND [id number] 16:34:00 Test Item Value Reference Range Interpretation Comments UA Glucose (test code = UA Glucose) 70 mg/dL [facility] AND [id number] 16:34:00 Test Item Value Reference Range Interpretation Comments UA Blood (test code = Negative (07/25/16 10:34 UA Blood) AM) [facility] AND [id number] 16:34:00 Test Item Value Reference Range Interpretation Comments UA Bili (test code = Negative *NA*(07/25/16 UA Bili) 10:34 AM) [facility] AND [id number] 16:34:00 Test Item Value Reference Range Interpretation Comments UA Protein (test code = UA >=300 mg/dL Protein) [facility] AND [id number] 16:34:00 Test Item Value Reference Range Interpretation Comments UA Spec Grav (test code = UA Spec Grav) 1.012 [facility] AND [id number] 16:34:00 Test Item Value Reference Range Interpretation Comments UA pH (test code = UA pH) 5.5 5.0-8.0 [facility] AND [id number] 16:34:00 Test Item Value Reference Range Interpretation Comments UA Turbidity (test code Slight *ABN*(07/25/16 = UA Turbidity) 10:34 AM) [facility] AND [id number] 16:34:00 Test Item Value Reference Range Interpretation Comments UA Color (test code = Dark Yellow *NA*(07/25/16 UA Color) 10:34 AM) [facility] AND [id number] 16:34:00 Test Item Value Reference Range Interpretation Comments UA Gran Cast (test code = UA Gran Cast) 9 [facility]2017-02-04 16:34:00 Test Item Value Reference Range Interpretation Comments U Sodium (test code = U Sodium) 30 [facility]2017-02-04 16:34:00 Test Item Value Reference Range Interpretation Comments U Prot/Creat (test code = U Prot/Creat) 3.1 [facility]2017-02-04 16:34:00 Test Item Value Reference Range Interpretation Comments U Protein (test code = U Protein) 420.9 [facility]2017-02-04 16:34:00 Test Item Value Reference Range Interpretation Comments U Creatinine (test code = U 136.00 Creatinine) [facility]2017-02-04 08:55:00 Test Item Value Reference Range Interpretation Comments Magnesium Lvl (test code = Magnesium 2.0 1.8-2.4 Lvl) [facility]2017-02-04 08:55:00 Test Item Value Reference Range Interpretation Comments Phosphorus (test code = Phosphorus) 5.2 2.5-4.5 [facility]2017-02-04 08:55:00 Test Item Value Reference Range Interpretation Comments Magnesium Lvl (test code = Magnesium 2.0 1.8-2.4 Lvl) [facility]2017-02-04 08:55:00 Test Item Value Reference Range Interpretation Comments Phosphorus (test code = Phosphorus) 5.2 2.5-4.5 [facility]2017-02-04 08:55:00 Test Item Value Reference Range Interpretation Comments Magnesium Lvl (test code = Magnesium 2.0 1.8-2.4 Lvl) [facility]2017-02-04 08:55:00 Test Item Value Reference Range Interpretation Comments Phosphorus (test code = Phosphorus) 5.2 2.5-4.5 [facility]2017-02-04 08:55:00 Test Item Value Reference Range Interpretation Comments Magnesium Lvl (test code = Magnesium 2.0 1.8-2.4 Lvl) [facility]2017-02-04 08:55:00 Test Item Value Reference Range Interpretation Comments Phosphorus (test code = Phosphorus) 5.2 2.5-4.5 [facility]2017-02-04 08:55:00 Test Item Value Reference Range Interpretation Comments Magnesium Lvl (test code = Magnesium 2.0 1.8-2.4 Lvl) [facility]aleShopReply [id number] 08:55:00 Test Item Value Reference Range Interpretation Comments Phosphorus (test code = Phosphorus) 5.2 2.5-4.5 [facility] [id number] 17:29:00 Test Item Value Reference Range Interpretation Comments Troponin-I (test code 0.28 See_Comment [Auto mated message] The = Troponin-I) system which g enerated this result transmit rohit reference range : <=0.40. The reference r leo was not used to interpr et this result as reji l/abnormal. [facility]aleTrackMavenJ[facility] [id number] 17:29:00 Test Item Value Reference Range Interpretation Comments Total CK (test code = Total CK) 2616 12-191 [facility]aleTrackMavenJ[facility] [id number] 17:29:00 Test Item Value Reference Range Interpretation Comments Troponin-T (test code 0.144 See_Comment [Auto mated message] The = Troponin-T) system which g enerated this result transmit rohit reference range : <=0.100. The reference r leo was not used to interpr et this result as reji l/abnormal. [facility]aleTrackMavenJ[facility] [id number] 17:29:00 Test Item Value Reference Range Interpretation Comments CK MB Index (test 0.2 See_Comment [Automate d message] The code = CK MB Index) system w [facility] generated this result transmit rohit reference range : <=2.5. The reference range was not used to interpr et this result as reji l/abnormal. [facility] SunnyvaleAgent Video Intelligence [id number] 17:29:00 Test Item Value Reference Range Interpretation Comments CK MB (test code = CK MB) 6.3 0.5-3.6 [facility]aleTrackMavenJ[facility] [id number] 17:29:00 Test Item Value Reference Range Interpretation Comments Troponin-I (test code 0.28 See_Comment [Auto mated message] The = Troponin-I) system which g enerated this result transmit rohit reference range : <=0.40. The reference r leo was not used to interpr et this result as reji l/abnormal. [facility] [employer] [id number] 17:29:00 Test Item Value Reference Range Interpretation Comments Total CK (test code = Total CK) 2615 [facility] PlanonaeemTrackMavenLAURAAC [id number] 17:29:00 Test Item Value Reference Range Interpretation Comments Troponin-T (test code 0.144 See_Comment [Auto mated message] The = Troponin-T) system which g enerated this result transmit rohit reference range : <=0.100. The reference r leo was not used to interpr et this result as reji l/abnormal. [facility]2017-02-03 17:29:00 Test Item Value Reference Range Interpretation Comments CK MB Index (test 0.2 See_Comment [Automate d message] The code = CK MB Index) system w [facility] generated this result transmit rohit reference range : <=2.5. The reference range was not used to interpr et this result as reji l/abnormal. [facility]2017-02-03 17:29:00 Test Item Value Reference Range Interpretation Comments CK MB (test code = CK MB) 6.3 0.5-3.6 [facility] [id number] 17:29:00 Test Item Value Reference Range Interpretation Comments Troponin-I (test code 0.28 See_Comment [Auto mated message] The = Troponin-I) system which g enerated this result transmit rohit reference range : <=0.40. The reference r leo was not used to interpr et this result as reji l/abnormal. [facility]2017-02-03 17:29:00 Test Item Value Reference Range Interpretation Comments Total CK (test code = Total CK) 2615 [facility] PlanonaeemNavidea Biopharmaceuticals [id number] 17:29:00 Test Item Value Reference Range Interpretation Comments Troponin-T (test code 0.144 See_Comment [Auto mated message] The = Troponin-T) system which g enerated this result transmit rohit reference range : <=0.100. The reference r leo was not used to interpr et this result as reji l/abnormal. [facility] [employer]2017-02-03 17:29:00 Test Item Value Reference Range Interpretation Comments CK MB Index (test 0.2 See_Comment [Automate d message] The code = CK MB Index) system w [employer] generated this result transmit rohit reference range : <=2.5. The reference range was not used to interpr et this result as reji l/abnormal. [facility] [employer]2017-02-03 17:29:00 Test Item Value Reference Range Interpretation Comments CK MB (test code = CK MB) 6.3 0.5-3.6 [facility]2017-02-03 17:29:00 Test Item Value Reference Range Interpretation Comments Troponin-I (test code 0.28 See_Comment [Auto mated message] The = Troponin-I) system which g enerated this result transmit rohit reference range : <=0.40. The reference r leo was not used to interpr et this result as reji l/abnormal. [facility]anoOm[facility] Biopharm[facility] [id number] 17:29:00 Test Item Value Reference Range Interpretation Comments Total CK (test code = Total CK) 2616 12-191 [facility]2017-02-03 17:29:00 Test Item Value Reference Range Interpretation Comments Troponin-T (test code 0.144 See_Comment [Auto mated message] The = Troponin-T) system which g enerated this result transmit rohit reference range : <=0.100. The reference r leo was not used to interpr et this result as reji l/abnormal. [facility]2017-02-03 17:29:00 Test Item Value Reference Range Interpretation Comments CK MB Index (test 0.2 See_Comment [Automate d message] The code = CK MB Index) system w [employer] generated this result transmit rohit reference range : <=2.5. The reference range was not used to interpr et this result as reji l/abnormal. [facility]2017-02-03 17:29:00 Test Item Value Reference Range Interpretation Comments CK MB (test code = CK MB) 6.3 0.5-3.6 [facility]2017-02-03 17:29:00 Test Item Value Reference Range Interpretation Comments Troponin-I (test code 0.28 See_Comment [Auto mated message] The = Troponin-I) system which g enerated this result transmit rohit reference range : <=0.40. The reference r leo was not used to interpr et this result as reji l/abnormal. [facility]2017-02-03 17:29:00 Test Item Value Reference Range Interpretation Comments Total CK (test code = Total CK) 2616 12-191 [facility]valeAgent Video Intelligence [id number] 17:29:00 Test Item Value Reference Range Interpretation Comments Troponin-T (test code 0.144 See_Comment [Auto mated message] The = Troponin-T) system which g enerated this result transmit rohit reference range : <=0.100. The reference r leo was not used to interpr et this result as reji l/abnormal. [facility]2017-02-03 17:29:00 Test Item Value Reference Range Interpretation Comments CK MB Index (test 0.2 See_Comment [Automate d message] The code = CK MB Index) system w [facility] generated this result transmit rohit reference range : <=2.5. The reference range was not used to interpr et this result as reji l/abnormal. [facility]2017-02-03 17:29:00 Test Item Value Reference Range Interpretation Comments CK MB (test code = CK MB) 6.3 0.5-3.6 [facility] [id number] 11:20:00 Test Item Value Reference Range Interpretation Comments Troponin-I (test code 0.38 See_Comment [Auto mated message] The = Troponin-I) system which g enerated this result transmit rohit reference range : <=0.40. The reference r leo was not used to interpr et this result as reji l/abnormal. [facility]2017-[facility]-03 11:20:00 Test Item Value Reference Range Interpretation Comments Troponin-T (test code 0.173 See_Comment [Auto mated message] The = Troponin-T) system which g enerated this result transmit rohit reference range : <=0.100. The reference r leo was not used to interpr et this result as reji l/abnormal. [facility] [employer]2017-02-03 11:20:00 Test Item Value Reference Range Interpretation Comments CK MB Index (test 0.2 See_Comment [Automate d message] The code = CK MB Index) system w [facility] generated this result transmit rohit reference range : <=2.5. The reference range was not used to interpr et this result as reji l/abnormal. [facility] [employer]2017-02-03 11:20:00 Test Item Value Reference Range Interpretation Comments CK MB (test code = CK MB) 5.6 0.5-3.6 [facility] [employer] [id number] 11:20:00 Test Item Value Reference Range Interpretation Comments Phosphorus (test code = Phosphorus) 5.5 2.5-4.5 [facility] [employer]2017-02-03 11:20:00 Test Item Value Reference Range Interpretation Comments Troponin-I (test code 0.38 See_Comment [Auto mated message] The = Troponin-I) system which g enerated this result transmit rohit reference range : <=0.40. The reference r leo was not used to interpr et this result as reji l/abnormal. [facility] [employer]2017-02-03 11:20:00 Test Item Value Reference Range Interpretation Comments Troponin-T (test code 0.173 See_Comment [Auto mated message] The = Troponin-T) system which g enerated this result transmit rohit reference range : <=0.100. The reference r leo was not used to interpr et this result as reji l/abnormal. [facility] [employer]2017-02-03 11:20:00 Test Item Value Reference Range Interpretation Comments CK MB Index (test 0.2 See_Comment [Automate d message] The code = CK MB Index) system w [facility] generated this result transmit rohit reference range : <=2.5. The reference range was not used to interpr et this result as reji l/abnormal. [facility] [employer]2017-02-03 11:20:00 Test Item Value Reference Range Interpretation Comments CK MB (test code = CK MB) 5.6 0.5-3.6 [facility] [employer] [id number] 11:20:00 Test Item Value Reference Range Interpretation Comments Phosphorus (test code = Phosphorus) 5.5 2.5-4.5 [facility] [employer]2017-02-03 11:20:00 Test Item Value Reference Range Interpretation Comments Troponin-I (test code 0.38 See_Comment [Auto mated message] The = Troponin-I) system which g enerated this result transmit rohit reference range : <=0.40. The reference r leo was not used to interpr et this result as reji l/abnormal. [facility] [employer]2017-02-03 11:20:00 Test Item Value Reference Range Interpretation Comments Troponin-T (test code 0.173 See_Comment [Auto mated message] The = Troponin-T) system which g enerated this result transmit rohit reference range : <=0.100. The reference r leo was not used to interpr et this result as reji l/abnormal. [facility] 11:20:00 Test Item Value Reference Range Interpretation Comments CK MB Index (test 0.2 See_Comment [Automate d message] The code = CK MB Index) system w [facility] generated this result transmit rohit reference range : <=2.5. The reference range was not used to interpr et this result as reji l/abnormal. [facility] [employer]2017-02-03 11:20:00 Test Item Value Reference Range Interpretation Comments CK MB (test code = CK MB) 5.6 0.5-3.6 [facility]flowPAR[facility] [id number] 11:20:00 Test Item Value Reference Range Interpretation Comments Phosphorus (test code = Phosphorus) 5.5 2.5-4.5 [facility] [employer]2017-02-03 11:20:00 Test Item Value Reference Range Interpretation Comments Troponin-I (test code 0.38 See_Comment [Auto mated message] The = Troponin-I) system which g enerated this result transmit rohit reference range : <=0.40. The reference r leo was not used to interpr et this result as reji l/abnormal. [facility] [employer]2017-02-03 11:20:00 Test Item Value Reference Range Interpretation Comments Troponin-T (test code 0.173 See_Comment [Auto mated message] The = Troponin-T) system which g enerated this result transmit rohit reference range : <=0.100. The reference r leo was not used to interpr et this result as reji l/abnormal. [facility] [employer]2017-02-03 11:20:00 Test Item Value Reference Range Interpretation Comments CK MB Index (test 0.2 See_Comment [Automate d message] The code = CK MB Index) system w [facility] generated this result transmit rohit reference range : <=2.5. The reference range was not used to interpr et this result as reji l/abnormal. [facility] [employer]2017-02-03 11:20:00 Test Item Value Reference Range Interpretation Comments CK MB (test code = CK MB) 5.6 0.5-3.6 [facility] [employer] [id number] 11:20:00 Test Item Value Reference Range Interpretation Comments Phosphorus (test code = Phosphorus) 5.5 2.5-4.5 [facility] [employer]2017-02-03 11:20:00 Test Item Value Reference Range Interpretation Comments Troponin-I (test code 0.38 See_Comment [Auto mated message] The = Troponin-I) system which g enerated this result transmit rohit reference range : <=0.40. The reference r leo was not used to interpr et this result as reji l/abnormal. [facility] [employer]2017-02-03 11:20:00 Test Item Value Reference Range Interpretation Comments Troponin-T (test code 0.173 See_Comment [Auto mated message] The = Troponin-T) system which g enerated this result transmit rohit reference range : <=0.100. The reference r leo was not used to interpr et this result as reji l/abnormal. [facility] [employer]2017-02-03 11:20:00 Test Item Value Reference Range Interpretation Comments CK MB Index (test 0.2 See_Comment [Automate d message] The code = CK MB Index) system w [employer] generated this result transmit rohit reference range : <=2.5. The reference range was not used to interpr et this result as reji l/abnormal. [facility] [employer]2017-02-03 11:20:00 Test Item Value Reference Range Interpretation Comments CK MB (test code = CK MB) 5.6 0.5-3.6 [facility] [employer]Flier [id number] 11:20:00 Test Item Value Reference Range Interpretation Comments Phosphorus (test code = Phosphorus) 5.5 2.5-4.5 [facility] [employer]2017-02-03 06:18:00 Test Item Value Reference Range Interpretation Comments BNP (test code = BNP) 701 [facility] [employer]AC [id number] 06:18:00 Test Item Value Reference Range Interpretation Comments BNP (test code = BNP) 701 [facility] [employer]2017-02-03 06:18:00 Test Item Value Reference Range Interpretation Comments BNP (test code = BNP) 701 [facility] [employer]2017-02-03 06:18:00 Test Item Value Reference Range Interpretation Comments BNP (test code = BNP) 701 [facility] [employer]2017-02-03 06:18:00 Test Item Value Reference Range Interpretation Comments BNP (test code = BNP) 701 [facility] [employer]2017-02-03 04:59:27 Test Item Value Reference Range Interpretation Comments Troponin-I (test code 0.57 See_Comment [Auto mated message] The = Troponin-I) system which g enerated this result transmit rohit reference range : <=0.40. The reference r leo was not used to interpr et this result as reji l/abnormal. [facility] [employer]2017-02-03 04:59:27 Test Item Value Reference Range Interpretation Comments Troponin-I (test code 0.57 See_Comment [Auto mated message] The = Troponin-I) system which g enerated this result transmit rohit reference range : <=0.40. The reference r leo was not used to interpr et this result as reji l/abnormal. [facility] [employer]2017-02-03 04:59:27 Test Item Value Reference Range Interpretation Comments Troponin-I (test code 0.57 See_Comment [Auto mated message] The = Troponin-I) system which g enerated this result transmit rohit reference range : <=0.40. The reference r leo was not used to interpr et this result as reji l/abnormal. [facility] [employer]2017-02-03 04:59:27 Test Item Value Reference Range Interpretation Comments Troponin-I (test code 0.57 See_Comment [Auto mated message] The = Troponin-I) system which g enerated this result transmit rohit reference range : <=0.40. The reference r leo was not used to interpr et this result as reji l/abnormal. [facility]aleTrackMavenJ[facility] [id number] 04:59:27 Test Item Value Reference Range Interpretation Comments Troponin-I (test code 0.57 See_Comment [Auto mated message] The = Troponin-I) system which g enerated this result transmit rohit reference range : <=0.40. The reference r leo was not used to interpr et this result as reji l/abnormal. [facility]anoOmrix Biopharm[employer] [id number] 10:22:00 Test Item Value Reference Range Interpretation Comments BNP (test code = BNP) 526 [facility] [employer]Flier [id number] 10:22:00 Test Item Value Reference Range Interpretation Comments Magnesium Lvl (test code = Magnesium 2.1 1.8-2.4 Lvl) [facility]anoForce-A [id number] 10:22:00 Test Item Value Reference Range Interpretation Comments Glucose Lvl (test code = Glucose Lvl) 117 70-99 [facility]ano[facility]-A [id number] 10:22:00 Test Item Value Reference Range Interpretation Comments BUN (test code = BUN) 41 7-22 [facility] [id number] 10:22:00 Test Item Value Reference Range Interpretation Comments Creatinine Lvl (test code = Creatinine 2.00 0.50-1.40 Lvl) [facility] SunnyvaleShopReply [id number] 10:22:00 Test Item Value Reference Range Interpretation Comments Calcium Lvl (test code = Calcium Lvl) 9.0 8.5-10.5 [facility] [id number] 10:22:00 Test Item Value Reference Range Interpretation Comments Chloride Lvl (test code = Chloride Lvl) 102 95-109 [facility] [id number] 10:22:00 Test Item Value Reference Range Interpretation Comments CO2 (test code = CO2) 33 24-32 [facility]valeShopReply [id number] 10:22:00 Test Item Value Reference Range Interpretation Comments Sodium Lvl (test code = Sodium Lvl) 144 135-145 [facility] [id number] 10:22:00 Test Item Value Reference Range Interpretation [...] Phosphorus (test code = Phosphorus) 4.6 2.5-4.5 [facility] Hos[id number] 10:22:00 Test Item Value Reference Range Interpretation Comments RBC (test code = RBC) 3.68 4.20-5.40 [facility] HospitalIsvfzjuLCDNSJGHBY2178-37-54 10:22:00 Test Item Value Reference Range Interpretation Comments Hgb (test code = Hgb) 9.9 12.0-16.0 [facility] HospitalBtbplikGOJKWGPWBL3312-37-88 10:22:00 Test Item Value Reference Range Interpretation Comments MCH (test code = MCH) 26.8 pg 27.0-31.0 [facility] HospitalDmnxwwnAMRUVZFMDJ8040-08-32 10:22:00 Test Item Value Reference Range Interpretation Comments MCHC (test code = MCHC) 34.2 32.0-36.0 [facility] HospitalLmercilOMCXVLHJOM1475-63-10 10:22:00 Test Item Value Reference Range Interpretation Comments MCV (test code = MCV) 78.3 80.0-98.0 [facility] HospitalAtzgcijTCMZWJIGGD9054-66-05 10:22:00 Test Item Value Reference Range Interpretation Comments Hct (test code = Hct) 28.8 36.0-48.0 [facility] HospitalUwfnjdgNHMSNRLSRH6841-35-72 10:22:00 Test Item Value Reference Range Interpretation Comments Platelet (test code = Platelet) 191 133-450 [facility] HospitalSrdiokeCEQNQCCGJG6398-03-67 10:22:00 Test Item Value Reference Range Interpretation Comments MPV (test code = MPV) 9.5 7.4-10.4 [facility] HospitalHkcsgcaKLORFGYBBS1439-62-79 10:22:00 Test Item Value Reference Range Interpretation Comments RDW (test code = RDW) 15.3 11.5-14.5 [facility] HospitalGdappvsWXSUKERVIF7086-70-22 10:22:00 Test Item Value Reference Range Interpretation Comments WBC (test code = WBC) 5.6 3.7-10.4 [facility] HospitalJqvxmgrLVSTZXTMKJ4416-83-11 10:22:00 Test Item Value Reference Range Interpretation Comments Eosinophils # (test code 0.5 See_Comment [A utomated message] The = Eosinophils #) system whic h generated this result tra nsmitted reference range : <=0.5. The reference r leo was not used to int erpret this result as normal/abnormal . [facility] HospitalKhiqzoxGHZPIAJRVR4763-70-59 10:22:00 Test Item Value Reference Range Interpretation Comments Microcyte (test code = 1+ *ABN*(06/15/16 Microcyte) 4:22 AM) [facility] Hos[id number] 10:22:00 Test Item Value Reference Range Interpretation Comments Basophils # (test code 0.1 See_Comment [Aut omated message] The = Basophils #) system which generated this result tra nsmitted reference range : <=0.2. The reference r leo was not used to int erpret this result as normal/abnormal . [facility] HospitalIsonkexWLSSPEFJCY8779-89-35 10:22:00 Test Item Value Reference Range Interpretation Comments Lymphocytes (test code = Lymphocytes) 33.5 20.0-40.0 [facility] HospitalVjxeshrHXYALSORLC8445-81-33 10:22:00 Test Item Value Reference Range Interpretation Comments Segs (test code = Segs) 47.6 45.0-75.0 [facility] HospitalFjkidqrLSXZUSWXBX3301-89-64 10:22:00 Test Item Value Reference Range Interpretation Comments Monocytes (test code = Monocytes) 8.4 2.0-12.0 [facility] HospitalNdvpbniOJEWRCJGCR3150-14-74 10:22:00 Test Item Value Reference Range Interpretation Comments Eosinophils (test code = 9.4 See_Comment [A utomated message] The Eosinophils) system which ge nerated this result tra nsmitted reference range : <=4.0. The reference r leo was not used to int erpret this result as normal/abnormal . [facility] HospitalFzoemypYFMLPVJRQK6743-88-26 10:22:00 Test Item Value Reference Range Interpretation Comments Segs-Bands # (test code = Segs-Bands #) 2.6 1.5-8.1 [facility] Hos[id number] 10:22:00 Test Item Value Reference Range Interpretation Comments Lymphocytes # (test code = Lymphocytes 1.9 1.0-5.5 #) [facility] HospitalKodhwbgLJTDBJBVQN3421-62-40 10:22:00 Test Item Value Reference Range Interpretation Comments Basophils (test code = 1.1 See_Comment [Aut omated message] The Basophils) system which ge nerated this result tra nsmitted reference range : <=1.0. The reference r leo was not used to int erpret this result as normal/abnormal . [facility] HospitalJtkqjraLIWTYYEDHQ9356-60-09 10:22:00 Test Item Value Reference Range Interpretation Comments Monocytes # (test code 0.5 See_Comment [Aut omated message] The = Monocytes #) system which generated this result tra nsmitted reference range : <=0.8. The reference r leo was not used to int erpret this result as normal/abnormal . [facility]valeCARDIAC [id number] 10:22:00 Test Item Value Reference Range Interpretation [...] Phosphorus (test code = Phosphorus) 4.6 2.5-4.5 [facility] H[id number] 10:22:00 Test Item Value Reference Range Interpretation Comments RBC (test code = RBC) 3.68 4.20-5.40 [place] [id number] 10:22:00 Test Item Value Reference Range Interpretation Comments Hgb (test code = Hgb) 9.9 12.0-16.0 [facility] HospitalMbueccwVNJGGPGDSZ7290-13-41 10:22:00 Test Item Value Reference Range Interpretation Comments MCH (test code = MCH) 26.8 pg 27.0-31.0 [facility] HospitalZybwgexEPABDOCBAX7108-01-36 10:22:00 Test Item Value Reference Range Interpretation Comments MCHC (test code = MCHC) 34.2 32.0-36.0 [facility] HospitalZlbzvyqZZZSZCEBKW8907-19-08 10:22:00 Test Item Value Reference Range Interpretation Comments MCV (test code = MCV) 78.3 80.0-98.0 [facility] HospitalWrgxymiQNVWUCLJBB6539-08-64 10:22:00 Test Item Value Reference Range Interpretation Comments Hct (test code = Hct) 28.8 36.0-48.0 [facility] HospitalZixnapfCNCNRGJCTW7601-84-01 10:22:00 Test Item Value Reference Range Interpretation Comments Platelet (test code = Platelet) 191 133-450 [facility] HospitalLugwcmkWBZKEXBPWE3731-89-88 10:22:00 Test Item Value Reference Range Interpretation Comments MPV (test code = MPV) 9.5 7.4-10.4 [facility] HospitalPoudlqrXGUBOVZAFJ9713-87-28 10:22:00 Test Item Value Reference Range Interpretation Comments RDW (test code = RDW) 15.3 11.5-14.5 [facility] HospitalCzufsheNLIAVFXOIB1703-11-34 10:22:00 Test Item Value Reference Range Interpretation Comments WBC (test code = WBC) 5.6 3.7-10.4 [facility] HospitalYvifeqvSPIAQJRHZB6880-38-75 10:22:00 Test Item Value Reference Range Interpretation Comments Eosinophils # (test code 0.5 See_Comment [A utomated message] The = Eosinophils #) system whic h generated this result tra nsmitted reference range : <=0.5. The reference r leo was not used to int erpret this result as normal/abnormal . [facility] HospitalWetsdvmFSSGDDMZIW3882-38-40 10:22:00 Test Item Value Reference Range Interpretation Comments Microcyte (test code = 1+ *ABN*(06/15/16 Microcyte) 4:22 AM) [facility] HospitalYkiblenDDZRLENTJK5641-45-25 10:22:00 Test Item Value Reference Range Interpretation Comments Basophils # (test code 0.1 See_Comment [Aut omated message] The = Basophils #) system which generated this result tra nsmitted reference range : <=0.2. The reference r leo was not used to int erpret this result as normal/abnormal . [facility] HospitalThmsqmvSYTHOLLPRP5227-30-07 10:22:00 Test Item Value Reference Range Interpretation Comments Lymphocytes (test code = Lymphocytes) 33.5 20.0-40.0 [facility] HospitalZbapjxwCAXMCYUEGR5700-02-92 10:22:00 Test Item Value Reference Range Interpretation Comments Segs (test code = Segs) 47.6 45.0-75.0 [facility] HospitalRawauukNQBXRSQRQR1578-24-14 10:22:00 Test Item Value Reference Range Interpretation Comments Monocytes (test code = Monocytes) 8.4 2.0-12.0 [facility] HospitalGjvpyxqIVXXOYDQEK3557-48-36 10:22:00 Test Item Value Reference Range Interpretation Comments Eosinophils (test code = 9.4 See_Comment [A utomated message] The Eosinophils) system which ge nerated this result tra nsmitted reference range : <=4.0. The reference r leo was not used to int erpret this result as normal/abnormal . [facility] HospitalYhftnoyTKTYKEJRIO9312-60-65 10:22:00 Test Item Value Reference Range Interpretation Comments Segs-Bands # (test code = Segs-Bands #) 2.6 1.5-8.1 [facility] HospitalUtuxaouVZFVYGXHII8226-94-29 10:22:00 Test Item Value Reference Range Interpretation Comments Lymphocytes # (test code = Lymphocytes 1.9 1.0-5.5 #) [facility] HospitalXvujlzrGJGKZPXFOW4887-66-91 10:22:00 Test Item Value Reference Range Interpretation Comments Basophils (test code = 1.1 See_Comment [Aut omated message] The Basophils) system which ge nerated this result tra nsmitted reference range : <=1.0. The reference r leo was not used to int erpret this result as normal/abnormal . [facility] HospitalYfkmbiiQLASHKSMXQ1775-42-50 10:22:00 Test Item Value Reference Range Interpretation Comments Monocytes # (test code 0.5 See_Comment [Aut omated message] The = Monocytes #) system which generated this result tra nsmitted reference range : <=0.8. The reference r leo was not used to int erpret this result as normal/abnormal . [facility]aleCARDIAC [id number] 10:22:00 Test Item Value Reference Range Interpretation [...] (test code = Creatinine 2.00 0.50-1.40 Lvl) [facility] [id number] 10:22:00 Test Item Value Reference Range Interpretation [...] Phosphorus (test code = Phosphorus) 4.6 2.5-4.5 [facility] HospitalDresengEXAAQLEPOU5129-27-02 10:22:00 Test Item Value Reference Range Interpretation Comments RBC (test code = RBC) 3.68 4.20-5.40 [facility] HospitalGfxpbnrWCXZLIMRLV5698-80-28 10:22:00 Test Item Value Reference Range Interpretation Comments Hgb (test code = Hgb) 9.9 12.0-16.0 [facility] HospitalKasrxxuMPKAMTNZUG4639-28-29 10:22:00 Test Item Value Reference Range Interpretation Comments MCH (test code = MCH) 26.8 pg 27.0-31.0 [facility] HospitalRqmeldhHKKEDXYXEP5838-74-94 10:22:00 Test Item Value Reference Range Interpretation Comments MCHC (test code = MCHC) 34.2 32.0-36.0 [place] [id number] 10:22:00 Test Item Value Reference Range Interpretation Comments MCV (test code = MCV) 78.3 80.0-98.0 [facility] HospitalMdoftrsZPEGGYJIYK1021-21-42 10:22:00 Test Item Value Reference Range Interpretation Comments Hct (test code = Hct) 28.8 36.0-48.0 [facility] HospitalDueytieSBWLGRKHUT4888-97-94 10:22:00 Test Item Value Reference Range Interpretation Comments Platelet (test code = Platelet) 191 133-450 [facility] HospitalTojjpmuJUPODRMHYZ8472-67-92 10:22:00 Test Item Value Reference Range Interpretation Comments MPV (test code = MPV) 9.5 7.4-10.4 [facility] HospitalWblzyplMSBCODWDNP4574-35-15 10:22:00 Test Item Value Reference Range Interpretation Comments RDW (test code = RDW) 15.3 11.5-14.5 [facility] HospitalJmrpevkOTDGXSVYLU3464-37-62 10:22:00 Test Item Value Reference Range Interpretation Comments WBC (test code = WBC) 5.6 3.7-10.4 [facility] HospitalGmzqkviTDTUPAUGLV6117-30-14 10:22:00 Test Item Value Reference Range Interpretation Comments Eosinophils # (test code 0.5 See_Comment [A utomated message] The = Eosinophils #) system [facility] h generated this result tra nsmitted reference range : <=0.5. The reference r leo was not used to int erpret this result as normal/abnormal . [facility] HospitalOltpfwbHEELXJSXUG2438-94-44 10:22:00 Test Item Value Reference Range Interpretation Comments Microcyte (test code = 1+ *ABN*(06/15/16 Microcyte) 4:22 AM) [facility] HospitalFwmrittAVTUYBRIEJ9962-20-98 10:22:00 Test Item Value Reference Range Interpretation Comments Basophils # (test code 0.1 See_Comment [Aut omated message] The = Basophils #) system which generated this result tra nsmitted reference range : <=0.2. The reference r leo was not used to int erpret this result as normal/abnormal . [facility] HospitalKklsccaSYHZSMGIUC8978-13-34 10:22:00 Test Item Value Reference Range Interpretation Comments Lymphocytes (test code = Lymphocytes) 33.5 20.0-40.0 [facility] HospitalJkdpkoyYCUQDXJAHH6037-03-46 10:22:00 Test Item Value Reference Range Interpretation Comments Segs (test code = Segs) 47.6 45.0-75.0 [facility] HospitalSwwwqwqRQBOROTLJF0024-88-01 10:22:00 Test Item Value Reference Range Interpretation Comments Monocytes (test code = Monocytes) 8.4 2.0-12.0 [facility]valeJidcvrwAOCSNPNOMA2256-29-86 10:22:00 Test Item Value Reference Range Interpretation Comments Eosinophils (test code = 9.4 See_Comment [A utomated message] The Eosinophils) system which ge nerated this result tra nsmitted reference range : <=4.0. The reference r leo was not used to int erpret this result as normal/abnormal . [facility]RwzfdgiYXOERSVVGO7847-06-43 10:22:00 Test Item Value Reference Range Interpretation Comments Segs-Bands # (test code = Segs-Bands #) 2.6 1.5-8.1 [facility] RegionMomaukcNHDVLPPPCY6405-30-04 10:22:00 Test Item Value Reference Range Interpretation Comments Lymphocytes # (test code = Lymphocytes 1.9 1.0-5.5 #) [facility] HospitalWzwilpxTMGJAWOLKB9622-28-67 10:22:00 Test Item Value Reference Range Interpretation Comments Basophils (test code = 1.1 See_Comment [Aut omated message] The Basophils) system which ge nerated this result tra nsmitted reference range : <=1.0. The reference r leo was not used to int erpret this result as normal/abnormal . [facility] HospitalYudcjijMTBCAIHADG4679-95-63 10:22:00 Test Item Value Reference Range Interpretation Comments Monocytes # (test code 0.5 See_Comment [Aut omated message] The = Monocytes #) system which generated this result tra nsmitted reference range : <=0.8. The reference r leo was not used to int erpret this result as normal/abnormal . [facility]anoannCARDIAC QPQSRRB8119-99-93 10:22:00 Test Item Value Reference Range Interpretation Comments BNP (test code = BNP) 526 [facility] SunnyvaleCHEM [id number] 10:22:00 Test Item Value Reference Range Interpretation Comments Magnesium Lvl (test code = Magnesium 2.1 1.8-2.4 Lvl) [facility] [id number] 10:22:00 Test Item Value Reference Range Interpretation Comments Glucose Lvl (test code = Glucose Lvl) 117 70-99 [facility] SunnyvaleShopReply [id number] 10:22:00 Test Item Value Reference Range Interpretation [...] Phosphorus (test code = Phosphorus) 4.6 2.5-4.5 [facility] HospitalIwforurMYGMUOYLMF3193-46-85 10:22:00 Test Item Value Reference Range Interpretation Comments RBC (test code = RBC) 3.68 4.20-5.40 [facility] HospitalDsllbwfLEGJGZXJRP6945-15-70 10:22:00 Test Item Value Reference Range Interpretation Comments Hgb (test code = Hgb) 9.9 12.0-16.0 [facility] HospitalXuchxykEOBQCXKPZU4788-06-68 10:22:00 Test Item Value Reference Range Interpretation Comments MCH (test code = MCH) 26.8 pg 27.0-31.0 [facility] HospitalFhfajxsQSXDOPKQFP8898-78-83 10:22:00 Test Item Value Reference Range Interpretation Comments MCHC (test code = MCHC) 34.2 32.0-36.0 [facility] HospitalLczavajMETCGEZKLV0226-34-73 10:22:00 Test Item Value Reference Range Interpretation Comments MCV (test code = MCV) 78.3 80.0-98.0 [facility] HospitalQbkhafuKBHNQRXIKK9835-86-34 10:22:00 Test Item Value Reference Range Interpretation Comments Hct (test code = Hct) 28.8 36.0-48.0 [facility] HospitalMgmnnfvQTTDIAOZQS1907-44-62 10:22:00 Test Item Value Reference Range Interpretation Comments Platelet (test code = Platelet) 191 133-450 [facility] HospitalVyakmbnJXDQUKHYCN7251-14-43 10:22:00 Test Item Value Reference Range Interpretation Comments MPV (test code = MPV) 9.5 7.4-10.4 [facility] HospitalLvegmieFHOYFQKBAC4594-76-99 10:22:00 Test Item Value Reference Range Interpretation Comments RDW (test code = RDW) 15.3 11.5-14.5 [facility] HospitalAnehhfvGHTOAJXCND3387-04-98 10:22:00 Test Item Value Reference Range Interpretation Comments WBC (test code = WBC) 5.6 3.7-10.4 [facility] HospitalZjapxhmEJMTGNCCDJ3223-83-48 10:22:00 Test Item Value Reference Range Interpretation Comments Eosinophils # (test code 0.5 See_Comment [A utomated message] The = Eosinophils #) system ic h generated this result tra nsmitted reference range : <=0.5. The reference r leo was not used to int erpret this result as normal/abnormal . [facility] HospitalZzmtizrEXDETGXDUS3422-03-08 10:22:00 Test Item Value Reference Range Interpretation Comments Microcyte (test code = 1+ *ABN*(06/15/16 Microcyte) 4:22 AM) [facility] HospitalMroluagPJTLJUTHGQ0833-45-84 10:22:00 Test Item Value Reference Range Interpretation Comments Basophils # (test code 0.1 See_Comment [Aut omated message] The = Basophils #) system which generated this result tra nsmitted reference range : <=0.2. The reference r leo was not used to int erpret this result as normal/abnormal . [facility] HospitalAfobmwkXHHZEQRVLF6357-56-21 10:22:00 Test Item Value Reference Range Interpretation Comments Lymphocytes (test code = Lymphocytes) 33.5 20.0-40.0 [facility] HospitalYbuowlsBPYXWATITE0039-23-32 10:22:00 Test Item Value Reference Range Interpretation Comments Segs (test code = Segs) 47.6 45.0-75.0 [facility] HospitalSwflbrwVLQDMVOJPC5317-80-97 10:22:00 Test Item Value Reference Range Interpretation Comments Monocytes (test code = Monocytes) 8.4 2.0-12.0 [facility] HospitalJqfbuchRODPFQUOON1595-05-57 10:22:00 Test Item Value Reference Range Interpretation Comments Eosinophils (test code = 9.4 See_Comment [A utomated message] The Eosinophils) system which ge nerated this result tra nsmitted reference range : <=4.0. The reference r leo was not used to int erpret this result as normal/abnormal . [facility] HospitalDaitvloAQHDGPKLVP4786-22-66 10:22:00 Test Item Value Reference Range Interpretation Comments Segs-Bands # (test code = Segs-Bands #) 2.6 1.5-8.1 [facility] HospitalJvomomaEMZJDLUNJQ0858-61-81 10:22:00 Test Item Value Reference Range Interpretation Comments Lymphocytes # (test code = Lymphocytes 1.9 1.0-5.5 #) [facility] HospitalJhpthxbDTRQROPVAM3174-85-45 10:22:00 Test Item Value Reference Range Interpretation Comments Basophils (test code = 1.1 See_Comment [Aut omated message] The Basophils) system which ge nerated this result tra nsmitted reference range : <=1.0. The reference r leo was not used to int erpret this result as normal/abnormal . [facility] HospitalHxoxklmZDQOUKKAKB3921-94-62 10:22:00 Test Item Value Reference Range Interpretation Comments Monocytes # (test code 0.5 See_Comment [Aut omated message] The = Monocytes #) system which generated this result tra nsmitted reference range : <=0.8. The reference r leo was not used to int erpret this result as normal/abnormal . [facility]ARD[facility] VDTYSBD7155-12-48 10:22:00 Test Item Value Reference Range Interpretation Comments BNP (test code = BNP) 526 [facility]aleCHEM FMXIO3190-03-42 10:22:00 Test Item Value Reference Range Interpretation [...] Phosphorus (test code = Phosphorus) 4.6 2.5-4.5 [facility] HospitalTozmwzjYJVGWCZEWC9978-16-86 10:22:00 Test Item Value Reference Range Interpretation Comments RBC (test code = RBC) 3.68 4.20-5.40 [facility] HospitalUkveivuGHTRSFRSXW2812-44-58 10:22:00 Test Item Value Reference Range Interpretation Comments Hgb (test code = Hgb) 9.9 12.0-16.0 [facility] HospitalTpdkoqhNSZHQZEVYN3911-47-03 10:22:00 Test Item Value Reference Range Interpretation Comments MCH (test code = MCH) 26.8 pg 27.0-31.0 [facility] HospitalWbdnygvOALMMYGKCY5042-76-06 10:22:00 Test Item Value Reference Range Interpretation Comments MCHC (test code = MCHC) 34.2 32.0-36.0 [facility] HospitalMcqcnnvEUXPODAHRS0881-28-77 10:22:00 Test Item Value Reference Range Interpretation Comments MCV (test code = MCV) 78.3 80.0-98.0 [facility] HospitalRynvtntUSRHWVLNQC6586-01-17 10:22:00 Test Item Value Reference Range Interpretation Comments Hct (test code = Hct) 28.8 36.0-48.0 [facility] HospitalVkhhtboLGUSYNXHUI9424-95-38 10:22:00 Test Item Value Reference Range Interpretation Comments Platelet (test code = Platelet) 191 133-450 [facility] HospitalYadjlixHJJZTYNNLD2781-96-54 10:22:00 Test Item Value Reference Range Interpretation Comments MPV (test code = MPV) 9.5 7.4-10.4 [facility] HospitalZnohhlsDKOVBDGEKY9153-65-81 10:22:00 Test Item Value Reference Range Interpretation Comments RDW (test code = RDW) 15.3 11.5-14.5 [facility] HospitalGmulqyuSSDETSBLJG7778-71-45 10:22:00 Test Item Value Reference Range Interpretation Comments WBC (test code = WBC) 5.6 3.7-10.4 [facility] HospitalShhqcoqARSHHINSCI9527-45-61 10:22:00 Test Item Value Reference Range Interpretation Comments Eosinophils # (test code 0.5 See_Comment [A utomated message] The = Eosinophils #) system whic h generated this result tra nsmitted reference range : <=0.5. The reference r leo was not used to int erpret this result as normal/abnormal . [facility] HospitalPzjamaeGRQVZRFCBS0295-94-64 10:22:00 Test Item Value Reference Range Interpretation Comments Microcyte (test code = 1+ *ABN*(06/15/16 Microcyte) 4:22 AM) [facility] HospitalCyrrtotOECPQIDVYC9370-98-83 10:22:00 Test Item Value Reference Range Interpretation Comments Basophils # (test code 0.1 See_Comment [Aut omated message] The = Basophils #) system which generated this result tra nsmitted reference range : <=0.2. The reference r loe was not used to int erpret this result as normal/abnormal . [facility] HospitalPbwgyjyZOTYTCEGCS5769-12-47 10:22:00 Test Item Value Reference Range Interpretation Comments Lymphocytes (test code = Lymphocytes) 33.5 20.0-40.0 [facility] HospitalLfnmobeVVJVXPJUCY3383-72-09 10:22:00 Test Item Value Reference Range Interpretation Comments Segs (test code = Segs) 47.6 45.0-75.0 [facility] HospitalHyewdrbZIMOUCVGOA7725-70-47 10:22:00 Test Item Value Reference Range Interpretation Comments Monocytes (test code = Monocytes) 8.4 2.0-12.0 [facility] HospitalKszdqycYOITZGLGLY0188-46-72 10:22:00 Test Item Value Reference Range Interpretation Comments Eosinophils (test code = 9.4 See_Comment [A utomated message] The Eosinophils) system which ge nerated this result tra nsmitted reference range : <=4.0. The reference r leo was not used to int erpret this result as normal/abnormal . [facility] HospitalJlkiagrEYVMQJWEXH4833-24-59 10:22:00 Test Item Value Reference Range Interpretation Comments Segs-Bands # (test code = Segs-Bands #) 2.6 1.5-8.1 [facility] HospitalDldycqdKJHHIPQJLQ6466-53-33 10:22:00 Test Item Value Reference Range Interpretation Comments Lymphocytes # (test code = Lymphocytes 1.9 1.0-5.5 #) [facility] HospitalDnnwkuzZDJAOOWWGU0853-02-59 10:22:00 Test Item Value Reference Range Interpretation Comments Basophils (test code = 1.1 See_Comment [Aut omated message] The Basophils) system which ge nerated this result tra nsmitted reference range : <=1.0. The reference r leo was not used to int erpret this result as normal/abnormal . [facility] HospitalKxatokmLSIAPTNIDC6774-07-40 10:22:00 Test Item Value Reference Range Interpretation [...] [facility]aleVdujdkfPVWLNJEKNF5047-32-31 11:03:00 Test Item Value Reference Range Interpretation Comments Eosinophils (test code = 10.3 See_Comment [A utomated message] The Eosinophils) system which ge nerated this result tra nsmitted reference range : <=4.0. The reference r leo was not used to int erpret this result as normal/abnormal . [facility] HospitalCgmwjybVGTKYJDZUX4450-32-72 11:03:00 Test Item Value Reference Range Interpretation Comments Basophils # (test code 0.1 See_Comment [Aut omated message] The = Basophils #) system which generated this result tra nsmitted reference range : <=0.2. The reference r leo was not used to int erpret this result as normal/abnormal . [facility] HospitalRezqlocQCUNTXNHPC3128-67-16 11:03:00 Test Item Value Reference Range Interpretation Comments Eosinophils # (test code 0.5 See_Comment [A utomated message] The = Eosinophils #) system whic h generated this result tra nsmitted reference range : <=0.5. The reference r leo was not used to int erpret this result as normal/abnormal . [facility] HospitalIxkdnljQMOENKYXMA4187-85-27 11:03:00 Test Item Value Reference Range Interpretation Comments Monocytes # (test code 0.5 See_Comment [Aut omated message] The = Monocytes #) system which generated this result tra nsmitted reference range : <=0.8. The reference r leo was not used to int erpret this result as normal/abnormal . [facility] HospitalYsxfzccZZWNVTSIYS9152-99-70 11:03:00 Test Item Value Reference Range Interpretation Comments Segs-Bands # (test code = Segs-Bands #) 2.1 1.5-8.1 [facility] HospitalPmijjquAAOIFFZIZH8118-41-47 11:03:00 Test Item Value Reference Range Interpretation Comments Basophils (test code = 1.2 See_Comment [Aut omated message] The Basophils) system which ge nerated this result tra nsmitted reference range : <=1.0. The reference r leo was not used to int erpret this result as normal/abnormal . [facility] HospitalCgzngmwZHXOIVPNIM1273-75-58 11:03:00 Test Item Value Reference Range Interpretation Comments Lymphocytes # (test code = Lymphocytes 1.9 1.0-5.5 #) [facility] HospitalKbyaztmXIFSLWZPVR1732-05-68 11:03:00 Test Item Value Reference Range Interpretation Comments Segs (test code = Segs) 42.5 45.0-75.0 [facility] HospitalPbqwhqzZPHRZKIQQV2690-72-57 11:03:00 Test Item Value Reference Range Interpretation Comments Lymphocytes (test code = Lymphocytes) 37.0 20.0-40.0 [facility] HospitalQilrbiyHNQZUOBUSP1049-89-65 11:03:00 Test Item Value Reference Range Interpretation Comments Monocytes (test code = Monocytes) 9.0 2.0-12.0 [facility] HospitalYfcxtnaNBOHDLTWDL5526-20-06 11:03:00 Test Item Value Reference Range Interpretation Comments MPV (test code = MPV) 9.8 7.4-10.4 [facility] HospitalVucvkotWESMLXDGDU0419-88-39 11:03:00 Test Item Value Reference Range Interpretation Comments WBC (test code = WBC) 5.0 3.7-10.4 [facility] HospitalBeycndwJPAUWQVZFS3342-26-26 11:03:00 Test Item Value Reference Range Interpretation Comments RBC (test code = RBC) 3.57 4.20-5.40 [facility] HospitalIvdzxkdFYKCHBLYOR6744-55-91 11:03:00 Test Item Value Reference Range Interpretation Comments Hgb (test code = Hgb) 9.4 12.0-16.0 [facility] HospitalWtgrcsqDFAUPIBNMO9784-57-31 11:03:00 Test Item Value Reference Range Interpretation Comments Hct (test code = Hct) 28.5 36.0-48.0 [facility] HospitalIamloyxXFODTRRHCA1973-77-06 11:03:00 Test Item Value Reference Range Interpretation Comments Platelet (test code = Platelet) 183 133-450 [facility] HospitalYdxmiwnTCBTBWBSXF1164-92-54 11:03:00 Test Item Value Reference Range Interpretation Comments MCV (test code = MCV) 79.9 80.0-98.0 [facility] HospitalCsnbhrbMDMAUDJECO8625-78-26 11:03:00 Test Item Value Reference Range Interpretation Comments MCH (test code = MCH) 26.3 pg 27.0-31.0 [facility] HospitalFkrbvrxUZXMYKHRYF6779-12-37 11:03:00 Test Item Value Reference Range Interpretation Comments MCHC (test code = MCHC) 33.0 32.0-36.0 [facility] HospitalHnnmtzoCRMRIWOSDF7565-35-03 11:03:00 Test Item Value Reference Range Interpretation [...] AGAP (test code = AGAP) 13.4 10.0-20.0 [facility] RegionKugsdhlCSZUMYVBGU9884-59-11 11:03:00 Test Item Value Reference Range Interpretation Comments Eosinophils (test code = 10.3 See_Comment [A utomated message] The Eosinophils) system which ge nerated this result tra nsmitted reference range : <=4.0. The reference r leo was not used to int erpret this result as normal/abnormal . [facility] HospitalEcpplwcURYRHJJACT1936-50-32 11:03:00 Test Item Value Reference Range Interpretation Comments Basophils # (test code 0.1 See_Comment [Aut omated message] The = Basophils #) system which generated this result tra nsmitted reference range : <=0.2. The reference r leo was not used to int erpret this result as normal/abnormal . [facility] HospitalIzwxrnpEKINGMTZVK6009-47-32 11:03:00 Test Item Value Reference Range Interpretation Comments Eosinophils # (test code 0.5 See_Comment [A utomated message] The = Eosinophils #) system whic h generated this result tra nsmitted reference range : <=0.5. The reference r leo was not used to int erpret this result as normal/abnormal . [facility] HospitalZrsdpvnAARENMYKFJ1471-85-19 11:03:00 Test Item Value Reference Range Interpretation Comments Monocytes # (test code 0.5 See_Comment [Aut omated message] The = Monocytes #) system which generated this result tra nsmitted reference range : <=0.8. The reference r leo was not used to int erpret this result as normal/abnormal . [facility] HospitalRexbwmaHNDHXPOUVM3411-79-43 11:03:00 Test Item Value Reference Range Interpretation Comments Segs-Bands # (test code = Segs-Bands #) 2.1 1.5-8.1 [facility] HospitalDflwzfjVAOXHYSWCC1669-32-79 11:03:00 Test Item Value Reference Range Interpretation Comments Basophils (test code = 1.2 See_Comment [Aut omated message] The Basophils) system which ge nerated this result tra nsmitted reference range : <=1.0. The reference r leo was not used to int erpret this result as normal/abnormal . [facility] HospitalWxrexgoVHEPKIMBYK9692-98-59 11:03:00 Test Item Value Reference Range Interpretation Comments Lymphocytes # (test code = Lymphocytes 1.9 1.0-5.5 #) [facility] HospitalNmnaqxjMTZCCNCXAJ7269-87-79 11:03:00 Test Item Value Reference Range Interpretation Comments Segs (test code = Segs) 42.5 45.0-75.0 [facility] HospitalQdvlzmpVGPGUNPJJG3751-77-20 11:03:00 Test Item Value Reference Range Interpretation Comments Lymphocytes (test code = Lymphocytes) 37.0 20.0-40.0 [facility] HospitalPqhtxvcCBZIQOCCCC0387-62-43 11:03:00 Test Item Value Reference Range Interpretation Comments Monocytes (test code = Monocytes) 9.0 2.0-12.0 [facility] HospitalGknswevRAFRDAXGQL5740-24-42 11:03:00 Test Item Value Reference Range Interpretation Comments MPV (test code = MPV) 9.8 7.4-10.4 [facility] HospitalFjycglaSUKIROZUAI3230-61-32 11:03:00 Test Item Value Reference Range Interpretation Comments WBC (test code = WBC) 5.0 3.7-10.4 [facility] HospitalMzcimgeUUOOHGINEF6432-89-45 11:03:00 Test Item Value Reference Range Interpretation Comments RBC (test code = RBC) 3.57 4.20-5.40 [facility] HospitalGoqdgesWHTMOUPNZC1298-05-83 11:03:00 Test Item Value Reference Range Interpretation Comments Hgb (test code = Hgb) 9.4 12.0-16.0 [facility] HospitalZzdgstaLCSJTDNIST5044-63-02 11:03:00 Test Item Value Reference Range Interpretation Comments Hct (test code = Hct) 28.5 36.0-48.0 [facility] HospitalOrmgclaMBRQSGAXZX9191-04-84 11:03:00 Test Item Value Reference Range Interpretation Comments Platelet (test code = Platelet) 183 133-450 [facility] HospitalZbvfaaxKRNSDCATTH8672-70-08 11:03:00 Test Item Value Reference Range Interpretation Comments MCV (test code = MCV) 79.9 80.0-98.0 [facility] HospitalJaqvtuuZJGCTDGPXO3163-94-66 11:03:00 Test Item Value Reference Range Interpretation Comments MCH (test code = MCH) 26.3 pg 27.0-31.0 [facility] HospitalGisodtqEXSIOAYNDX6095-37-72 11:03:00 Test Item Value Reference Range Interpretation Comments MCHC (test code = MCHC) 33.0 32.0-36.0 [facility] HospitalGftvqqnCUDWRSEWUB1620-71-38 11:03:00 Test Item Value Reference Range Interpretation [...] AGAP (test code = AGAP) 13.4 10.0-20.0 [facility]VndvtpiSTCXSQAKIH9406-75-83 11:03:00 Test Item Value Reference Range Interpretation Comments Eosinophils (test code = 10.3 See_Comment [A utomated message] The Eosinophils) system which ge nerated this result tra nsmitted reference range : <=4.0. The reference r leo was not used to int erpret this result as normal/abnormal . [facility] HospitalFbvwwmgTOQLFIEAOS6162-33-31 11:03:00 Test Item Value Reference Range Interpretation Comments Basophils # (test code 0.1 See_Comment [Aut omated message] The = Basophils #) system which generated this result tra nsmitted reference range : <=0.2. The reference r leo was not used to int erpret this result as normal/abnormal . [facility] HospitalAcqjjjeFHXVLELGXS4126-98-60 11:03:00 Test Item Value Reference Range Interpretation Comments Eosinophils # (test code 0.5 See_Comment [A utomated message] The = Eosinophils #) system whic h generated this result tra nsmitted reference range : <=0.5. The reference r leo was not used to int erpret this result as normal/abnormal . [facility] HospitalCpxatsmHYMEBDVSSA9906-24-75 11:03:00 Test Item Value Reference Range Interpretation Comments Monocytes # (test code 0.5 See_Comment [Aut omated message] The = Monocytes #) system which generated this result tra nsmitted reference range : <=0.8. The reference r leo was not used to int erpret this result as normal/abnormal . [facility] HospitalHeryushUNCYRIPZVN9184-86-67 11:03:00 Test Item Value Reference Range Interpretation Comments Segs-Bands # (test code = Segs-Bands #) 2.1 1.5-8.1 [facility] HospitalZbbujmgGPQUSMOAMT2340-27-76 11:03:00 Test Item Value Reference Range Interpretation Comments Basophils (test code = 1.2 See_Comment [Aut omated message] The Basophils) system which ge nerated this result tra nsmitted reference range : <=1.0. The reference r leo was not used to int erpret this result as normal/abnormal . [facility] HospitalQfoovemGWPWWJLZWE7020-20-89 11:03:00 Test Item Value Reference Range Interpretation Comments Lymphocytes # (test code = Lymphocytes 1.9 1.0-5.5 #) [facility] HospitalWrdvrtnYNJXWNRZXX8107-06-78 11:03:00 Test Item Value Reference Range Interpretation Comments Segs (test code = Segs) 42.5 45.0-75.0 [facility] HospitalAxkudkuKAPAOLZTGT7972-70-11 11:03:00 Test Item Value Reference Range Interpretation Comments Lymphocytes (test code = Lymphocytes) 37.0 20.0-40.0 [facility] HospitalKwlrcihFOXOQIDEXO0973-07-49 11:03:00 Test Item Value Reference Range Interpretation Comments Monocytes (test code = Monocytes) 9.0 2.0-12.0 [facility] HospitalYlimlbfNCQLZCQINC4143-01-96 11:03:00 Test Item Value Reference Range Interpretation Comments MPV (test code = MPV) 9.8 7.4-10.4 [facility] HospitalYthjboeGIPWWWRIIO6763 11:03:00 Test Item Value Reference Range Interpretation Comments WBC (test code = WBC) 5.0 3.7-10.4 [facility] HospitalZwusiumECXOIZOLQU8532-90-25 11:03:00 Test Item Value Reference Range Interpretation Comments RBC (test code = RBC) 3.57 4.20-5.40 [facility] HospitalRcoaalyVLEKJMPPCW2124-18-74 11:03:00 Test Item Value Reference Range Interpretation Comments Hgb (test code = Hgb) 9.4 12.0-16.0 [facility] HospitalWxjclntOYJABCFYME2256-20-98 11:03:00 Test Item Value Reference Range Interpretation Comments Hct (test code = Hct) 28.5 36.0-48.0 [facility] HospitalSviydkvDGARGJEKVC1853-33-81 11:03:00 Test Item Value Reference Range Interpretation Comments Platelet (test code = Platelet) 183 133-450 [facility] HospitalHgetgtmKEUQUNAFBO1834-83-58 11:03:00 Test Item Value Reference Range Interpretation Comments MCV (test code = MCV) 79.9 80.0-98.0 [facility] HospitalGgvefkjDRPRGKLQUD9746-77-08 11:03:00 Test Item Value Reference Range Interpretation Comments MCH (test code = MCH) 26.3 pg 27.0-31.0 [facility] HospitalSmzxljqAJQUDRYPAF5257-30-01 11:03:00 Test Item Value Reference Range Interpretation Comments MCHC (test code = MCHC) 33.0 32.0-36.0 [facility] HospitalKtagmviWRZSNULRBJ2379-54-41 11:03:00 Test Item Value Reference Range Interpretation [...] AGAP (test code = AGAP) 13.4 10.0-20.0 [facility] RegionIpakokkUGSWCCBXKV4973-13-63 11:03:00 Test Item Value Reference Range Interpretation Comments Eosinophils (test code = 10.3 See_Comment [A utomated message] The Eosinophils) system which ge nerated this result tra nsmitted reference range : <=4.0. The reference r leo was not used to int erpret this result as normal/abnormal . [facility] HospitalPhpvmekEYWWCPQBNP8833-74-68 11:03:00 Test Item Value Reference Range Interpretation Comments Basophils # (test code 0.1 See_Comment [Aut omated message] The = Basophils #) system which generated this result tra nsmitted reference range : <=0.2. The reference r leo was not used to int erpret this result as normal/abnormal . [facility] HospitalBvdelgfANHDQFVQIV8401-70-36 11:03:00 Test Item Value Reference Range Interpretation Comments Eosinophils # (test code 0.5 See_Comment [A utomated message] The = Eosinophils #) system whic h generated this result tra nsmitted reference range : <=0.5. The reference r leo was not used to int erpret this result as normal/abnormal . [facility] HospitalSxitepaGAEZOVWKHA8319-48-95 11:03:00 Test Item Value Reference Range Interpretation Comments Monocytes # (test code 0.5 See_Comment [Aut omated message] The = Monocytes #) system which generated this result tra nsmitted reference range : <=0.8. The reference r leo was not used to int erpret this result as normal/abnormal . [facility] HospitalFnoptscQEBOPVTUMY3833-70-79 11:03:00 Test Item Value Reference Range Interpretation Comments Segs-Bands # (test code = Segs-Bands #) 2.1 1.5-8.1 [facility] HospitalEcxcoxyLGADCIKTVJ3897-55-04 11:03:00 Test Item Value Reference Range Interpretation Comments Basophils (test code = 1.2 See_Comment [Aut omated message] The Basophils) system which ge nerated this result tra nsmitted reference range : <=1.0. The reference r leo was not used to int erpret this result as normal/abnormal . [facility] HospitalLwglyioZNTTPOWLYD0720-06-79 11:03:00 Test Item Value Reference Range Interpretation Comments Lymphocytes # (test code = Lymphocytes 1.9 1.0-5.5 #) [facility] HospitalBjfarkeUFTVCACXTE1438-65-11 11:03:00 Test Item Value Reference Range Interpretation Comments Segs (test code = Segs) 42.5 45.0-75.0 [facility] HospitalHmyebpbBNBLAVKHNZ9970-14-03 11:03:00 Test Item Value Reference Range Interpretation Comments Lymphocytes (test code = Lymphocytes) 37.0 20.0-40.0 [facility] HospitalMtgzzlvITKKPEVNNY0336-46-41 11:03:00 Test Item Value Reference Range Interpretation Comments Monocytes (test code = Monocytes) 9.0 2.0-12.0 [facility] HospitalUyfgcnoEWEDHPIDMV1560-51-04 11:03:00 Test Item Value Reference Range Interpretation Comments MPV (test code = MPV) 9.8 7.4-10.4 [facility] HospitalImstysrJKZFOOYEHK3891-25-16 11:03:00 Test Item Value Reference Range Interpretation Comments WBC (test code = WBC) 5.0 3.7-10.4 [facility] HospitalEuvqwvyCDBXHZRONP5120-05-31 11:03:00 Test Item Value Reference Range Interpretation Comments RBC (test code = RBC) 3.57 4.20-5.40 [facility] HospitalIbdnrfdXIUDQZDAOH6927-62-24 11:03:00 Test Item Value Reference Range Interpretation Comments Hgb (test code = Hgb) 9.4 12.0-16.0 [facility] HospitalNxkfbjxEPPQOPBHRP3481-00-64 11:03:00 Test Item Value Reference Range Interpretation Comments Hct (test code = Hct) 28.5 36.0-48.0 [facility] HospitalMscguavZZFISANZFB7516-21-37 11:03:00 Test Item Value Reference Range Interpretation Comments Platelet (test code = Platelet) 183 133-450 [facility] HospitalKpdliicYGPIIGYGEW7698-32-68 11:03:00 Test Item Value Reference Range Interpretation Comments MCV (test code = MCV) 79.9 80.0-98.0 [facility] HospitalBfmbcltEUUVJUMCZM4169-84-36 11:03:00 Test Item Value Reference Range Interpretation Comments MCH (test code = MCH) 26.3 pg 27.0-31.0 [facility]XdgldlrLHSHMJUAHH4187-24-29 11:03:00 Test Item Value Reference Range Interpretation Comments MCHC (test code = MCHC) 33.0 32.0-36.0 [facility] HospitalEjcatfjFBZXRJXICI0629-08-73 11:03:00 Test Item Value Reference Range Interpretation [...] [facility]AcddtssAEOFTARKJY5981-75-32 11:03:00 Test Item Value Reference Range Interpretation Comments Eosinophils (test code = 10.3 See_Comment [A utomated message] The Eosinophils) system which ge nerated this result tra nsmitted reference range : <=4.0. The reference r leo was not used to int erpret this result as normal/abnormal . [facility] HospitalSsjitlmEYYOHONGWF9186-61-60 11:03:00 Test Item Value Reference Range Interpretation Comments Basophils # (test code 0.1 See_Comment [Aut omated message] The = Basophils #) system which generated this result tra nsmitted reference range : <=0.2. The reference r leo was not used to int erpret this result as normal/abnormal . [facility] HospitalAzaoicmXQGXJUSLRY1862-71-76 11:03:00 Test Item Value Reference Range Interpretation Comments Eosinophils # (test code 0.5 See_Comment [A utomated message] The = Eosinophils #) system whic h generated this result tra nsmitted reference range : <=0.5. The reference r leo was not used to int erpret this result as normal/abnormal . [facility] HospitalDfthltyBXDOKJEJHE3114-05-49 11:03:00 Test Item Value Reference Range Interpretation Comments Monocytes # (test code 0.5 See_Comment [Aut omated message] The = Monocytes #) system which generated this result tra nsmitted reference range : <=0.8. The reference r leo was not used to int erpret this result as normal/abnormal . [facility] HospitalAyykqjsGFGTOLSRUW9468-14-56 11:03:00 Test Item Value Reference Range Interpretation Comments Segs-Bands # (test code = Segs-Bands #) 2.1 1.5-8.1 [facility] HospitalTolukhxLLWLEOIVTS8080-39-29 11:03:00 Test Item Value Reference Range Interpretation Comments Basophils (test code = 1.2 See_Comment [Aut omated message] The Basophils) system which ge nerated this result tra nsmitted reference range : <=1.0. The reference r leo was not used to int erpret this result as normal/abnormal . [facility] HospitalVyvnediPVGQXBROGK5169-28-82 11:03:00 Test Item Value Reference Range Interpretation Comments Lymphocytes # (test code = Lymphocytes 1.9 1.0-5.5 #) [facility] HospitalGgpxycwWZOMMVDNAI6140-66-21 11:03:00 Test Item Value Reference Range Interpretation Comments Segs (test code = Segs) 42.5 45.0-75.0 [facility] HospitalAlyucelCXHNIPYBRG6590-34-04 11:03:00 Test Item Value Reference Range Interpretation Comments Lymphocytes (test code = Lymphocytes) 37.0 20.0-40.0 [facility]XryntnxBPCUIURRJT8570-47-89 11:03:00 Test Item Value Reference Range Interpretation Comments Monocytes (test code = Monocytes) 9.0 2.0-12.0 [facility] HospitalFnejtxuVQOVCGETNA8315-69-28 11:03:00 Test Item Value Reference Range Interpretation Comments MPV (test code = MPV) 9.8 7.4-10.4 [facility] HospitalKpglgchEVQZWKGGXU4241-97-62 11:03:00 Test Item Value Reference Range Interpretation Comments WBC (test code = WBC) 5.0 3.7-10.4 [facility] HospitalZovzagsOZDVUCFGXF8755-12-24 11:03:00 Test Item Value Reference Range Interpretation Comments RBC (test code = RBC) 3.57 4.20-5.40 [facility] HospitalVpbsujrERIYUYUVZL2353-06-63 11:03:00 Test Item Value Reference Range Interpretation Comments Hgb (test code = Hgb) 9.4 12.0-16.0 [facility] HospitalLjnryrmBDSFUCTYTC1894-61-68 11:03:00 Test Item Value Reference Range Interpretation Comments Hct (test code = Hct) 28.5 36.0-48.0 [facility] HospitalQwerkkaVENKQQJHEX1634-17-86 11:03:00 Test Item Value Reference Range Interpretation Comments Platelet (test code = Platelet) 183 133-450 [facility] HospitalNzijewmCHCXHWRJVB7954-72-47 11:03:00 Test Item Value Reference Range Interpretation Comments MCV (test code = MCV) 79.9 80.0-98.0 [facility] HospitalApqmegrPOHGAEFWTZ3317-27-92 11:03:00 Test Item Value Reference Range Interpretation Comments MCH (test code = MCH) 26.3 pg 27.0-31.0 [facility] RegionWibrcsmDOPSCCVCRQ4489-55-09 11:03:00 Test Item Value Reference Range Interpretation Comments MCHC (test code = MCHC) 33.0 32.0-36.0 [facility] RegionZxlpnqnIFEGEULGGP2066-25-65 11:03:00 Test Item Value Reference Range Interpretation Comments RDW (test code = RDW) 15.9 11.5-14.5 [facility]2016-12-24 10:26:00 Test Item Value Reference Range Interpretation Comments U Prot/Creat (test code = U Prot/Creat) 6.9 [facility]2016-12-24 10:26:00 Test Item Value Reference Range Interpretation Comments U Creatinine (test code = U Creatinine) 19.30 [facility]2016-12-24 10:26:00 Test Item Value Reference Range Interpretation Comments U Protein (test code = U Protein) 133.1 [facility]2016-12-24 10:26:00 Test Item Value Reference Range Interpretation Comments U Prot/Creat (test code = U Prot/Creat) 6.9 [facility]2016-12-24 10:26:00 Test Item Value Reference Range Interpretation Comments U Creatinine (test code = U Creatinine) 19.30 [facility]2016-12-24 10:26:00 Test Item Value Reference Range Interpretation Comments U Protein (test code = U Protein) 133.1 [facility]2016-12-24 10:26:00 Test Item Value Reference Range Interpretation Comments U Prot/Creat (test code = U Prot/Creat) 6.9 [facility]2016-12-24 10:26:00 Test Item Value Reference Range Interpretation Comments U Creatinine (test code = U Creatinine) 19.30 [facility]2016-12-24 10:26:00 Test Item Value Reference Range Interpretation Comments U Protein (test code = U Protein) 133.1 [facility]2016-12-24 10:26:00 Test Item Value Reference Range Interpretation Comments U Prot/Creat (test code = U Prot/Creat) 6.9 [facility]2016-12-24 10:26:00 Test Item Value Reference Range Interpretation Comments U Creatinine (test code = U Creatinine) 19.30 [facility]2016-12-24 10:26:00 Test Item Value Reference Range Interpretation Comments U Protein (test code = U Protein) 133.1 [facility]2016-12-24 10:26:00 Test Item Value Reference Range Interpretation Comments U Prot/Creat (test code = U Prot/Creat) 6.9 [facility]2016-12-24 10:26:00 Test Item Value Reference Range Interpretation Comments U Creatinine (test code = U Creatinine) 19.30 [facility] VKZN9340-73-73 10:26:00 Test Item Value Reference Range Interpretation Comments U Protein (test code = U Protein) 133.1 [facility]aleNqdamqbJEDLTBLFLK9162-97-05 09:20:00 Test Item Value Reference Range Interpretation Comments MPV (test code = MPV) 9.7 7.4-10.4 [facility]EhdmtzgYPIXOHNBWB3814-78-12 09:20:00 Test Item Value Reference Range Interpretation Comments Platelet (test code = Platelet) 184 133-450 [facility] RegionYrmrmjoJXDYIUECVD6433-07-96 09:20:00 Test Item Value Reference Range Interpretation Comments RDW (test code = RDW) 15.9 11.5-14.5 [facility] RegionAalrupxXEOWELBILL4315-53-63 09:20:00 Test Item Value Reference Range Interpretation Comments MCV (test code = MCV) 79.3 80.0-98.0 [facility] RegionOlnflkjAMRZVZQWFR0036-89-97 09:20:00 Test Item Value Reference Range Interpretation Comments MCHC (test code = MCHC) 33.0 32.0-36.0 [facility]aleNorbjtgNHNWKMZVBF7449-00-57 09:20:00 Test Item Value Reference Range Interpretation Comments MCH (test code = MCH) 26.2 pg 27.0-31.0 [facility]aleHvijxmnQBAAEQIFZE3910-47-87 09:20:00 Test Item Value Reference Range Interpretation Comments Hct (test code = Hct) 29.4 36.0-48.0 [facility] RegionGzjyqycBRTUNQRFFT4127-21-00 09:20:00 Test Item Value Reference Range Interpretation Comments Hgb (test code = Hgb) 9.7 12.0-16.0 [facility]XjtykyaERTBTPFMDU2926-21-25 09:20:00 Test Item Value Reference Range Interpretation Comments RBC (test code = RBC) 3.70 4.20-5.40 [facility] RegionBchckfqWRIZCYZJWT9230-21-70 09:20:00 Test Item Value Reference Range Interpretation Comments WBC (test code = WBC) 5.7 3.7-10.4 [facility] RegionJycdlbwVMXXEALPIU9847-80-59 09:20:00 Test Item Value Reference Range Interpretation Comments Basophils # (test code 0.1 See_Comment [Aut omated message] The = Basophils #) system which generated this result tra nsmitted reference range : <=0.2. The reference r leo was not used to int erpret this result as normal/abnormal . [facility] HospitalImvsdgtBTOMASGOYO0155-51-28 09:20:00 Test Item Value Reference Range Interpretation Comments Lymphocytes # (test code = Lymphocytes 2.2 1.0-5.5 #) [facility] HospitalSfommcpFBCWLBLFXO2890-91-11 09:20:00 Test Item Value Reference Range Interpretation Comments Eosinophils # (test code 0.5 See_Comment [A utomated message] The = Eosinophils #) system whic h generated this result tra nsmitted reference range : <=0.5. The reference r leo was not used to int erpret this result as normal/abnormal . [facility] HospitalGzejquxIAQYUCXZGH1134-45-31 09:20:00 Test Item Value Reference Range Interpretation Comments Monocytes # (test code 0.5 See_Comment [Aut omated message] The = Monocytes #) system which generated this result tra nsmitted reference range : <=0.8. The reference r leo was not used to int erpret this result as normal/abnormal . [facility] HospitalOjboueaPYXRYUDBAF9669-01-50 09:20:00 Test Item Value Reference Range Interpretation Comments Basophils (test code = 1.1 See_Comment [Aut omated message] The Basophils) system which ge nerated this result tra nsmitted reference range : <=1.0. The reference r leo was not used to int erpret this result as normal/abnormal . [facility] HospitalTsqrhuqIIOEADROCW9261-23-04 09:20:00 Test Item Value Reference Range Interpretation Comments Segs-Bands # (test code = Segs-Bands #) 2.3 1.5-8.1 [facility] HospitalYclpzbnOCHCZLZKON9966-96-55 09:20:00 Test Item Value Reference Range Interpretation Comments Eosinophils (test code = 9.5 See_Comment [A utomated message] The Eosinophils) system which ge nerated this result tra nsmitted reference range : <=4.0. The reference r leo was not used to int erpret this result as normal/abnormal . [facility] HospitalYrdzzfyVGUDBJBKMI5504-90-85 09:20:00 Test Item Value Reference Range Interpretation Comments Monocytes (test code = Monocytes) 9.0 2.0-12.0 [facility] HospitalJiyeunmNADWYXCOMR5633-07-04 09:20:00 Test Item Value Reference Range Interpretation Comments Lymphocytes (test code = Lymphocytes) 38.9 20.0-40.0 [facility] HospitalOnavyujDHPRPCQFDZ4605-13-49 09:20:00 Test Item Value Reference Range Interpretation Comments Segs (test code = Segs) 41.5 45.0-75.0 [place] 530836-12-24 09:20:00 Test Item Value Reference Range Interpretation Comments MPV (test code = MPV) 9.7 7.4-10.4 [facility] HospitalXmtzkwdIWDQAKPPAX9542-82-00 09:20:00 Test Item Value Reference Range Interpretation Comments Platelet (test code = Platelet) 184 133-450 [facility] HospitalOodqirpYISBCHXLYX5680-61-16 09:20:00 Test Item Value Reference Range Interpretation Comments RDW (test code = RDW) 15.9 11.5-14.5 [facility] HospitalUllgugqBRGLXFXSQJ2635-48-03 09:20:00 Test Item Value Reference Range Interpretation Comments MCV (test code = MCV) 79.3 80.0-98.0 [facility] HospitalZgqlxkfMKPLUXVJRL8453-84-65 09:20:00 Test Item Value Reference Range Interpretation Comments MCHC (test code = MCHC) 33.0 32.0-36.0 [facility] HospitalCtogbixUHQXRQOKZG6850-25-64 09:20:00 Test Item Value Reference Range Interpretation Comments MCH (test code = MCH) 26.2 pg 27.0-31.0 [facility] HospitalDfaneqtWRSYUAEMKM5129-98-37 09:20:00 Test Item Value Reference Range Interpretation Comments Hct (test code = Hct) 29.4 36.0-48.0 [facility] HospitalBpxypbtRAVZBBCDMV0918-99-42 09:20:00 Test Item Value Reference Range Interpretation Comments Hgb (test code = Hgb) 9.7 12.0-16.0 [facility] HospitalRantrkuKICKLCXYZC6190-18-68 09:20:00 Test Item Value Reference Range Interpretation Comments RBC (test code = RBC) 3.70 4.20-5.40 [facility] HospitalDbzqmjmUKUJENETJY5440-13-37 09:20:00 Test Item Value Reference Range Interpretation Comments WBC (test code = WBC) 5.7 3.7-10.4 [facility] HospitalLzyjhezXDOQVTHKMP5148-60-62 09:20:00 Test Item Value Reference Range Interpretation Comments Basophils # (test code 0.1 See_Comment [Aut omated message] The = Basophils #) system which generated this result tra nsmitted reference range : <=0.2. The reference r leo was not used to int erpret this result as normal/abnormal . [facility] HospitalCdwoubuYELDQKCZBY7677-84-43 09:20:00 Test Item Value Reference Range Interpretation Comments Lymphocytes # (test code = Lymphocytes 2.2 1.0-5.5 #) [facility] HospitalXlsljpbKFYIXVKKUA3010-42-53 09:20:00 Test Item Value Reference Range Interpretation Comments Eosinophils # (test code 0.5 See_Comment [A utomated message] The = Eosinophils #) system whic h generated this result tra nsmitted reference range : <=0.5. The reference r leo was not used to int erpret this result as normal/abnormal . [facility] HospitalBvppocaDVRIIBYGAS6856-23-85 09:20:00 Test Item Value Reference Range Interpretation Comments Monocytes # (test code 0.5 See_Comment [Aut omated message] The = Monocytes #) system which generated this result tra nsmitted reference range : <=0.8. The reference r leo was not used to int erpret this result as normal/abnormal . [facility] HospitalAzpkomsJWCWSPEHXT5166-76-52 09:20:00 Test Item Value Reference Range Interpretation Comments Basophils (test code = 1.1 See_Comment [Aut omated message] The Basophils) system which ge nerated this result tra nsmitted reference range : <=1.0. The reference r leo was not used to int erpret this result as normal/abnormal . [facility] HospitalKsoffvjXVNWRDITBY9695-43-63 09:20:00 Test Item Value Reference Range Interpretation Comments Segs-Bands # (test code = Segs-Bands #) 2.3 1.5-8.1 [facility] HospitalKaxwyzxRAKXEKVYYG0889-07-67 09:20:00 Test Item Value Reference Range Interpretation Comments Eosinophils (test code = 9.5 See_Comment [A utomated message] The Eosinophils) system which ge nerated this result tra nsmitted reference range : <=4.0. The reference r leo was not used to int erpret this result as normal/abnormal . [facility] HospitalEkdokwxCONBMYOWNM1686-00-85 09:20:00 Test Item Value Reference Range Interpretation Comments Monocytes (test code = Monocytes) 9.0 2.0-12.0 [facility] HospitalRliqgzpHVTVVJGQAZ3216-26-79 09:20:00 Test Item Value Reference Range Interpretation Comments Lymphocytes (test code = Lymphocytes) 38.9 20.0-40.0 [facility] HospitalMeowbguGRYGRGUUSL2249-95-37 09:20:00 Test Item Value Reference Range Interpretation Comments Segs (test code = Segs) 41.5 45.0-75.0 [place] 530836-12-24 09:20:00 Test Item Value Reference Range Interpretation Comments MPV (test code = MPV) 9.7 7.4-10.4 [place] 530836-12-24 09:20:00 Test Item Value Reference Range Interpretation Comments Platelet (test code = Platelet) 184 133-450 [facility] HospitalNbrstckHQUADEOQSQ7039-38-45 09:20:00 Test Item Value Reference Range Interpretation Comments RDW (test code = RDW) 15.9 11.5-14.5 [facility] HospitalJnrsvauEAIIGFGNQW8189-64-82 09:20:00 Test Item Value Reference Range Interpretation Comments MCV (test code = MCV) 79.3 80.0-98.0 [facility] HospitalXcxojofEMLNDKXPWX2940-64-77 09:20:00 Test Item Value Reference Range Interpretation Comments MCHC (test code = MCHC) 33.0 32.0-36.0 [facility] HospitalPjvrxqqEILIJQYPCK9130-62-36 09:20:00 Test Item Value Reference Range Interpretation Comments MCH (test code = MCH) 26.2 pg 27.0-31.0 [facility] HospitalTplmezfJDSWPRYNJW0366-20-64 09:20:00 Test Item Value Reference Range Interpretation Comments Hct (test code = Hct) 29.4 36.0-48.0 [facility] HospitalMwsicohQUXTQDJKWP6692-88-43 09:20:00 Test Item Value Reference Range Interpretation Comments Hgb (test code = Hgb) 9.7 12.0-16.0 [facility] HospitalEmnhmdhZLXJSMQHUK0603-44-83 09:20:00 Test Item Value Reference Range Interpretation Comments RBC (test code = RBC) 3.70 4.20-5.40 [place] 530836-12-24 09:20:00 Test Item Value Reference Range Interpretation Comments WBC (test code = WBC) 5.7 3.7-10.4 [facility] HospitalQrqclimDAQEUUPQTU4870-79-85 09:20:00 Test Item Value Reference Range Interpretation Comments Basophils # (test code 0.1 See_Comment [Aut omated message] The = Basophils #) system which generated this result tra nsmitted reference range : <=0.2. The reference r leo was not used to int erpret this result as normal/abnormal . [facility] HospitalBxwfijvPABCTKBGLH0354-68-16 09:20:00 Test Item Value Reference Range Interpretation Comments Lymphocytes # (test code = Lymphocytes 2.2 1.0-5.5 #) [facility] HospitalEgqkrppWUILDQLBYR5035-32-32 09:20:00 Test Item Value Reference Range Interpretation Comments Eosinophils # (test code 0.5 See_Comment [A utomated message] The = Eosinophils #) system whic h generated this result tra nsmitted reference range : <=0.5. The reference r leo was not used to int erpret this result as normal/abnormal . [facility] HospitalJfaamynJGUTKDDTHT5385-17-31 09:20:00 Test Item Value Reference Range Interpretation Comments Monocytes # (test code 0.5 See_Comment [Aut omated message] The = Monocytes #) system which generated this result tra nsmitted reference range : <=0.8. The reference r leo was not used to int erpret this result as normal/abnormal . [facility] HospitalVxlkojjYJYIBUZUQR5112-11-46 09:20:00 Test Item Value Reference Range Interpretation Comments Basophils (test code = 1.1 See_Comment [Aut omated message] The Basophils) system which ge nerated this result tra nsmitted reference range : <=1.0. The reference r leo was not used to int erpret this result as normal/abnormal . [facility] HospitalOxujlamYDZDGYPBFN7510-14-33 09:20:00 Test Item Value Reference Range Interpretation Comments Segs-Bands # (test code = Segs-Bands #) 2.3 1.5-8.1 [facility] HospitalMtdgkmtNRXTKEOTUQ8153-82-88 09:20:00 Test Item Value Reference Range Interpretation Comments Eosinophils (test code = 9.5 See_Comment [A utomated message] The Eosinophils) system which ge nerated this result tra nsmitted reference range : <=4.0. The reference r leo was not used to int erpret this result as normal/abnormal . [facility] HospitalIxuuyfqDZKQXNDBLL6950-82-00 09:20:00 Test Item Value Reference Range Interpretation Comments Monocytes (test code = Monocytes) 9.0 2.0-12.0 [facility] HospitalIgvvyulSFJPPOPJGT2667-01-39 09:20:00 Test Item Value Reference Range Interpretation Comments Lymphocytes (test code = Lymphocytes) 38.9 20.0-40.0 [facility] HospitalVmvlabmBKJSNEYYPE4977-20-00 09:20:00 Test Item Value Reference Range Interpretation Comments Segs (test code = Segs) 41.5 45.0-75.0 [facility] HospitalPhhopmwZXGMCUTJOO0589-80-97 09:20:00 Test Item Value Reference Range Interpretation Comments MPV (test code = MPV) 9.7 7.4-10.4 [facility] HospitalPmmicocUNLBIYTCQJ3672-47-95 09:20:00 Test Item Value Reference Range Interpretation Comments Platelet (test code = Platelet) 184 991-450 [facility] HospitalHfhzinjVMFUCDJBZA0659-70-66 09:20:00 Test Item Value Reference Range Interpretation Comments RDW (test code = RDW) 15.9 11.5-14.5 [facility] HospitalCdcygxvKGVOILLDBS3052-97-37 09:20:00 Test Item Value Reference Range Interpretation Comments MCV (test code = MCV) 79.3 80.0-98.0 [facility] HospitalBgdvxiuBAWELVMSDM0860-58-41 09:20:00 Test Item Value Reference Range Interpretation Comments MCHC (test code = MCHC) 33.0 32.0-36.0 [facility] HospitalUbazyftDNUTPGRZMX3953-75-64 09:20:00 Test Item Value Reference Range Interpretation Comments MCH (test code = MCH) 26.2 pg 27.0-31.0 [facility] HospitalJrrtvcaNGHUDRBTOK0902-77-48 09:20:00 Test Item Value Reference Range Interpretation Comments Hct (test code = Hct) 29.4 36.0-48.0 [facility] HospitalXigabjfXZLBWDYAPC5469-98-47 09:20:00 Test Item Value Reference Range Interpretation Comments Hgb (test code = Hgb) 9.7 12.0-16.0 [facility] HospitalElfzuafSEYUQLKOEG1663-89-55 09:20:00 Test Item Value Reference Range Interpretation Comments RBC (test code = RBC) 3.70 4.20-5.40 [facility] HospitalJhampwnERGVLIHHKD7277-84-21 09:20:00 Test Item Value Reference Range Interpretation Comments WBC (test code = WBC) 5.7 3.7-10.4 [facility] HospitalTijklxnTIMDSJXOVW4376-80-24 09:20:00 Test Item Value Reference Range Interpretation Comments Basophils # (test code 0.1 See_Comment [Aut omated message] The = Basophils #) system which generated this result tra nsmitted reference range : <=0.2. The reference r leo was not used to int erpret this result as normal/abnormal . [facility] HospitalWtmflakDUCQECURMV1730-65-09 09:20:00 Test Item Value Reference Range Interpretation Comments Lymphocytes # (test code = Lymphocytes 2.2 1.0-5.5 #) [facility] HospitalBirmlhcJLTNPAMORW2975-66-13 09:20:00 Test Item Value Reference Range Interpretation Comments Eosinophils # (test code 0.5 See_Comment [A utomated message] The = Eosinophils #) system whic h generated this result tra nsmitted reference range : <=0.5. The reference r leo was not used to int erpret this result as normal/abnormal . [facility] HospitalNcbktjtXPUSATJHFQ5270-75-66 09:20:00 Test Item Value Reference Range Interpretation Comments Monocytes # (test code 0.5 See_Comment [Aut omated message] The = Monocytes #) system which generated this result tra nsmitted reference range : <=0.8. The reference r leo was not used to int erpret this result as normal/abnormal . [facility] HospitalVbknozmHTVYTHONVX6627-09-50 09:20:00 Test Item Value Reference Range Interpretation Comments Basophils (test code = 1.1 See_Comment [Aut omated message] The Basophils) system which ge nerated this result tra nsmitted reference range : <=1.0. The reference r leo was not used to int erpret this result as normal/abnormal . [facility] HospitalKzpkfaxRMJGYKKJHK1734-90-04 09:20:00 Test Item Value Reference Range Interpretation Comments Segs-Bands # (test code = Segs-Bands #) 2.3 1.5-8.1 [facility] HospitalKglidcfNQPATAMVXH9375-71-59 09:20:00 Test Item Value Reference Range Interpretation Comments Eosinophils (test code = 9.5 See_Comment [A utomated message] The Eosinophils) system which ge nerated this result tra nsmitted reference range : <=4.0. The reference r leo was not used to int erpret this result as normal/abnormal . [facility] HospitalXahgyivDNRZEQEJJY2268-91-49 09:20:00 Test Item Value Reference Range Interpretation Comments Monocytes (test code = Monocytes) 9.0 2.0-12.0 [facility] HospitalQekfndgGCGTFHWTCT5337-35-30 09:20:00 Test Item Value Reference Range Interpretation Comments Lymphocytes (test code = Lymphocytes) 38.9 20.0-40.0 [facility] HospitalCvwaevyCNWOTPJABJ5524-22-92 09:20:00 Test Item Value Reference Range Interpretation Comments Segs (test code = Segs) 41.5 45.0-75.0 [facility] HospitalAacjvduXIGTDLVZAT4427-48-62 09:20:00 Test Item Value Reference Range Interpretation Comments MPV (test code = MPV) 9.7 7.4-10.4 [facility] HospitalChknynzJAIAUXLKMQ5009-13-81 09:20:00 Test Item Value Reference Range Interpretation Comments Platelet (test code = Platelet) 184 133-450 [facility] HospitalRzvhzcaFHNFYYNJNB6251-30-67 09:20:00 Test Item Value Reference Range Interpretation Comments RDW (test code = RDW) 15.9 11.5-14.5 [facility] HospitalHdgsvbdEUGVQJKIWA4178-29-10 09:20:00 Test Item Value Reference Range Interpretation Comments MCV (test code = MCV) 79.3 80.0-98.0 [facility] [facility]BB5107[facility]81-41 [facility]:20:00 Test Item Value Reference Range Interpretation Comments MCHC (test code = MCHC) 33.0 32.0-36.0 [facility]GmocwmmHPPEFNQWCR6812-04-86 09:20:00 Test Item Value Reference Range Interpretation Comments MCH (test code = MCH) 26.2 pg 27.0-31.0 [facility] HospitalJfjqisjUZPLLRRZXP3761-49-11 09:20:00 Test Item Value Reference Range Interpretation Comments Hct (test code = Hct) 29.4 36.0-48.0 [facility] HospitalDglrdsmFDRAKTNPGA6333-63-86 09:20:00 Test Item Value Reference Range Interpretation Comments Hgb (test code = Hgb) 9.7 12.0-16.0 [facility] HospitalZvfytwiIZEGBIMAEW0997-30-48 09:20:00 Test Item Value Reference Range Interpretation Comments RBC (test code = RBC) 3.70 4.20-5.[address]12-24 09:20:00 Test Item Value Reference Range Interpretation Comments WBC (test code = WBC) 5.7 3.7-10.4 [facility] HospitalNyxlaqwMWFJYDRGLC4066-95-47 09:20:00 Test Item Value Reference Range Interpretation Comments Basophils # (test code 0.1 See_Comment [Aut omated message] The = Basophils #) system which generated this result tra nsmitted reference range : <=0.2. The reference r leo was not used to int erpret this result as normal/abnormal . [facility] HospitalUsjrnukOAVMLXDPPV3449-09-41 09:20:00 Test Item Value Reference Range Interpretation Comments Lymphocytes # (test code = Lymphocytes 2.2 1.0-5.5 #) [facility] HospitalIkssywbJDAGFTRSWS7665-26-27 09:20:00 Test Item Value Reference Range Interpretation Comments Eosinophils # (test code 0.5 See_Comment [A utomated message] The = Eosinophils #) system wh h generated this result tra nsmitted reference range : <=0.5. The reference r leo was not used to int erpret this result as normal/abnormal . [facility] HospitalNytcedvRFDRXFIGJI4330-49-65 09:20:00 Test Item Value Reference Range Interpretation Comments Monocytes # (test code 0.5 See_Comment [Aut omated message] The = Monocytes #) system which generated this result tra nsmitted reference range : <=0.8. The reference r leo was not used to int erpret this result as normal/abnormal . [facility] HospitalQfwfkddGXPPWPAJXZ1581-95-68 09:20:00 Test Item Value Reference Range Interpretation Comments Basophils (test code = 1.1 See_Comment [Aut omated message] The Basophils) system which ge nerated this result tra nsmitted reference range : <=1.0. The reference r leo was not used to int erpret this result as normal/abnormal . [facility] HospitalIlosehjNATZRFVOHK7585-53-57 09:20:00 Test Item Value Reference Range Interpretation Comments Segs-Bands # (test code = Segs-Bands #) 2.3 1.5-8.1 [facility] HospitalAnankwzMQJIFGNDJU7375-66-31 09:20:00 Test Item Value Reference Range Interpretation Comments Eosinophils (test code = 9.5 See_Comment [A utomated message] The Eosinophils) system which ge nerated this result tra nsmitted reference range : <=4.0. The reference r leo was not used to int erpret this result as normal/abnormal . [facility] HospitalDaanoddNUGPNGLTNO4003-61-72 09:20:00 Test Item Value Reference Range Interpretation Comments Monocytes (test code = Monocytes) 9.0 2.0-12.0 [facility] HospitalPbuoqsmWXARAQNASN9967-43-26 09:20:00 Test Item Value Reference Range Interpretation Comments Lymphocytes (test code = Lymphocytes) 38.9 20.0-40.0 [facility] HospitalTtkweppHHUQAXAIFO3837-51-48 09:20:00 Test Item Value Reference Range Interpretation [...] code = Phosphorus) 4.2 2.5-4.5 [facility]ZbzgmruMVEJUJKDJFJI5336-42-67 06:34:00 Test Item Value Reference Range Interpretation Comments AGAP (test code = AGAP) 14.3 10.0-20.0 [facility] HospitalSqeguheGAEMFXYKYQIV1884-32-05 06:34:00 Test Item Value Reference Range Interpretation Comments eGFR (test code = eGFR) 41 [facility] HospitalVoandchGAGWLDNXTQCG6737-68-98 06:34:00 Test Item Value Reference Range Interpretation Comments Chloride Lvl (test code = Chloride Lvl) 103 95-109 [facility] HospitalLewqafaGBXJKRROTFTC9413-66-92 06:34:00 Test Item Value Reference Range Interpretation Comments Calcium Lvl (test code = Calcium Lvl) 8.5 8.5-10.5 [facility] HospitalVyqjmagJMHQFMPLBXWJ3636-28-11 06:34:00 Test Item Value Reference Range Interpretation Comments CO2 (test code = CO2) 32 24-32 [facility] HospitalYvjtablFXMAKXDVWXWN6464-90-73 06:34:00 Test Item Value Reference Range Interpretation Comments Glucose Lvl (test code = Glucose Lvl) 173 70-99 [facility] HospitalEdhuwhjNKRIFGLQWLSV3917-69-05 06:34:00 Test Item Value Reference Range Interpretation Comments BUN (test code = BUN) 37 7-22 [facility] HospitalXirhbnkUZJRZIZOTHMB4140-09-42 06:34:00 Test Item Value Reference Range Interpretation Comments Creatinine Lvl (test code = Creatinine 1.63 0.50-1.40 Lvl) [facility] HospitalRjjkjnuRFVCVEUMFMYK2653-51-23 06:34:00 Test Item Value Reference Range Interpretation Comments Potassium Lvl (test code = Potassium 4.3 3.5-5.1 Lvl) [facility] HospitalMqdzlqjXWQLTIGLBKNX8030-44-66 06:34:00 Test Item Value Reference Range Interpretation [...] code = Phosphorus) 4.2 2.5-4.5 [facility] HospitalNsufdouKMYDPRTTDSCL9394-64-62 06:34:00 Test Item Value Reference Range Interpretation Comments AGAP (test code = AGAP) 14.3 10.0-20.0 [facility] HospitalZhibkzdGVCMZRSUFENZ1746-50-16 06:34:00 Test Item Value Reference Range Interpretation Comments eGFR (test code = eGFR) 41 [facility] HospitalKiezkuaIFYVNGNDEPJK2196-39-47 06:34:00 Test Item Value Reference Range Interpretation Comments Chloride Lvl (test code = Chloride Lvl) 103 95-109 [facility] HospitalEnwlhgrXNPFCTBSHQUH7554-83-80 06:34:00 Test Item Value Reference Range Interpretation Comments Calcium Lvl (test code = Calcium Lvl) 8.5 8.5-10.5 [facility] HospitalHozqnkdUNDDSTQFWUCE1388-87-50 06:34:00 Test Item Value Reference Range Interpretation Comments CO2 (test code = CO2) 32 24-32 [facility] HospitalQqckluoKRDFSLBICXKS3661-92-74 06:34:00 Test Item Value Reference Range Interpretation Comments Glucose Lvl (test code = Glucose Lvl) 173 70-99 [facility] HospitalXxedyysIXWBRHPIWBIZ4503-03-37 06:34:00 Test Item Value Reference Range Interpretation Comments BUN (test code = BUN) 37 7-22 [facility] HospitalWisnfaeHUNQZBXNIAEX0606-64-47 06:34:00 Test Item Value Reference Range Interpretation Comments Creatinine Lvl (test code = Creatinine 1.63 0.50-1.40 Lvl) [facility] HospitalNpbfwiiOPWKSNVTMAGY4659-59-92 06:34:00 Test Item Value Reference Range Interpretation Comments Potassium Lvl (test code = Potassium 4.3 3.5-5.1 Lvl) [facility] HospitalSvmphnlJREMQROBZHKR9747-40-20 06:34:00 Test Item Value Reference Range Interpretation [...] code = Phosphorus) 4.2 2.5-4.5 [facility] HospitalLtukdioWJMACGKCAPHL4287-36-04 06:34:00 Test Item Value Reference Range Interpretation Comments AGAP (test code = AGAP) 14.3 10.0-20.0 [facility] HospitalYqvazzoDEKWNQIEZFKX5843-88-77 06:34:00 Test Item Value Reference Range Interpretation Comments eGFR (test code = eGFR) 41 [facility] HospitalLudbtmtPNCHDJNWWYNL5997-57-73 06:34:00 Test Item Value Reference Range Interpretation Comments Chloride Lvl (test code = Chloride Lvl) 103 95-109 [facility] HospitalPigjteqVBSJXOGBBDJR7867-11-70 06:34:00 Test Item Value Reference Range Interpretation Comments Calcium Lvl (test code = Calcium Lvl) 8.5 8.5-10.5 [facility] HospitalVqfqvknAYETEXQTNPFG6767-62-36 06:34:00 Test Item Value Reference Range Interpretation Comments CO2 (test code = CO2) 32 24-32 [facility] HospitalIfvwbebKTAQJERYNAJM0691-18-19 06:34:00 Test Item Value Reference Range Interpretation Comments Glucose Lvl (test code = Glucose Lvl) 173 70-99 [facility] HospitalPxbdbnqIHEAOHYFBYTR1751-50-86 06:34:00 Test Item Value Reference Range Interpretation Comments BUN (test code = BUN) 37 7-22 [facility] HospitalRthpgmuSYSEBROSRVSV5711-20-82 06:34:00 Test Item Value Reference Range Interpretation Comments Creatinine Lvl (test code = Creatinine 1.63 0.50-1.40 Lvl) [facility] HospitalNiwynwjVLTNVVHEDVAJ4434-47-80 06:34:00 Test Item Value Reference Range Interpretation Comments Potassium Lvl (test code = Potassium 4.3 3.5-5.1 Lvl) [facility] HospitalTsyiwykJLVRPOPWQIVK5943-27-13 06:34:00 Test Item Value Reference Range Interpretation [...] code = Phosphorus) 4.2 2.5-4.5 [facility] HospitalMmnbehbMYCVWXHAIZJG2134-09-33 06:34:00 Test Item Value Reference Range Interpretation Comments AGAP (test code = AGAP) 14.3 10.0-20.0 [facility] HospitalVqactzpYIDJAFYIRJJI2475-48-76 06:34:00 Test Item Value Reference Range Interpretation Comments eGFR (test code = eGFR) 41 [facility] HospitalEtyeiobXYWMLASFDQNS2798-52-98 06:34:00 Test Item Value Reference Range Interpretation Comments Chloride Lvl (test code = Chloride Lvl) 103 95-109 [facility] HospitalJtrocihJYXAJNNWBEBM3985-84-19 06:34:00 Test Item Value Reference Range Interpretation Comments Calcium Lvl (test code = Calcium Lvl) 8.5 8.5-10.5 [facility] HospitalGblxurfWJAMSLJFDTSW4648-29-11 06:34:00 Test Item Value Reference Range Interpretation Comments CO2 (test code = CO2) 32 24-32 [facility] HospitalHvgtuasPHXGWIWOCZAB6529-59-97 06:34:00 Test Item Value Reference Range Interpretation Comments Glucose Lvl (test code = Glucose Lvl) 173 70-99 [facility] HospitalUwsctndLJQKFVRKKRGV2736-77-23 06:34:00 Test Item Value Reference Range Interpretation Comments BUN (test code = BUN) 37 7-22 [facility] HospitalJnybzqwNUKKZEGGEKRX1691-80-64 06:34:00 Test Item Value Reference Range Interpretation Comments Creatinine Lvl (test code = Creatinine 1.63 0.50-1.40 Lvl) [facility] HospitalRloydjtMTKAGVOTZWTJ3041-02-35 06:34:00 Test Item Value Reference Range Interpretation Comments Potassium Lvl (test code = Potassium 4.3 3.5-5.1 Lvl) [facility] HospitalHtsncsqKWDVNQFJZUTO3777-64-86 06:34:00 Test Item Value Reference Range Interpretation [...] code = Phosphorus) 4.2 2.5-4.5 [facility] HospitalRwqcyzqQDHPKDVQYOMR7623-44-60 06:34:00 Test Item Value Reference Range Interpretation Comments AGAP (test code = AGAP) 14.3 10.0-20.0 [facility] HospitalYlkoqptGBHLOEADXZUC9061-74-44 06:34:00 Test Item Value Reference Range Interpretation Comments eGFR (test code = eGFR) 41 [facility] HospitalNbdolwpZJJVQXMRKIXM9900-53-80 06:34:00 Test Item Value Reference Range Interpretation Comments Chloride Lvl (test code = Chloride Lvl) 103 95-109 [facility] HospitalHetcqffNEQGLGMBQOXW8665-26-38 06:34:00 Test Item Value Reference Range Interpretation Comments Calcium Lvl (test code = Calcium Lvl) 8.5 8.5-10.5 [facility] HospitalSshmluqRASHOKFKRAMT2658-15-81 06:34:00 Test Item Value Reference Range Interpretation Comments CO2 (test code = CO2) 32 24-32 [facility] HospitalRrcstvnNPQHBHHKHZYV4962-41-57 06:34:00 Test Item Value Reference Range Interpretation Comments Glucose Lvl (test code = Glucose Lvl) 173 70-99 [facility] HospitalBzeshpmBSVIMGPNFJWX0371-57-58 06:34:00 Test Item Value Reference Range Interpretation Comments BUN (test code = BUN) 37 7-22 [facility] HospitalLcgkibzHBBWGQJBSWVQ4281-14-42 06:34:00 Test Item Value Reference Range Interpretation Comments Creatinine Lvl (test code = Creatinine 1.63 0.50-1.40 Lvl) [facility] HospitalWxvtlooIPNKPAZVTINU3950-36-35 06:34:00 Test Item Value Reference Range Interpretation Comments Potassium Lvl (test code = Potassium 4.3 3.5-5.1 Lvl) [facility]vzbgcrBATZHLMZVUAU0301-70-83 06:34:00 Test Item Value Reference Range Interpretation Comments Sodium Lvl (test code = Sodium Lvl) 145 135-145 [facility] [id number] 16:21:00 Test Item Value Reference Range Interpretation Comments Ammonia (test code = Ammonia) 48.0 [facility] XTDYC5145-42-31 16:21:00 Test Item Value Reference Range Interpretation Comments Ammonia (test code = Ammonia) 48.0 [facility]2016-12-22 16:21:00 Test Item Value Reference Range Interpretation Comments Ammonia (test code = Ammonia) 48.0 [facility]2016-12-22 16:21:00 Test Item Value Reference Range Interpretation Comments Ammonia (test code = Ammonia) 48.0 [facility] GQQGZ2744-93-74 16:21:00 Test Item Value Reference Range Interpretation Comments Ammonia (test code = Ammonia) 48.0 [facility]LejpcaoVORVBJRUMT1415-64-27 14:56:00 Test Item Value Reference Range Interpretation Comments IVETTE Interp (test code Pattern appears = IVETTE Interp) Nucleolar. [facility] HospitalUwvkqcoIHNCJXFBUK5050-18-58 14:56:00 Test Item Value Reference Range Interpretation Comments IVETTE Titer (test code = 1:40 *ABN*(06/11/16 IVETTE Titer) 8:56 AM) [facility] HospitalDgussoxPJSLHRFRVI0063-41-92 14:56:00 Test Item Value Reference Range Interpretation Comments Hep Bs Ag (test code Negative *NA*(06/11/16 = Hep Bs Ag) 8:56 AM) [facility] HospitalHdpndhtJLPTTOWQTF7007-35-20 14:56:00 Test Item Value Reference Range Interpretation Comments Hep C Ab (test code = Negative *NA*(06/11/16 Hep C Ab) 8:56 AM) [facility] HospitalIffwhfcILIORWMCYD1761-40-53 14:56:00 Test Item Value Reference Range Interpretation Comments Hep B Core IgM (test Negative *NA*(06/11/16 code = Hep B Core 8:56 AM) IgM) [facility] HospitalXuiqsiqTDZVCDKLRX3870-50-76 14:56:00 Test Item Value Reference Range Interpretation Comments Hep A IgM (test code Negative *NA*(06/11/16 = Hep A IgM) 8:56 AM) [facility] HospitalQkclwziPXKRFPOLMR5979-37-77 14:56:00 Test Item Value Reference Range Interpretation Comments HIV Ag/Ab 4th Gen Negative *NA*(06/11/16 (test code = HIV 8:56 AM) Ag/Ab 4th Gen) [facility] HospitalLzlzvwiOWXKVPYAJQ8949-97-38 14:56:00 Test Item Value Reference Range Interpretation Comments IVETTE (test code = IVETTE) Positive *ABN*(06/11/16 8:56 AM) [facility] HospitalRvfmdkwKBZPPETHYV9432-85-23 14:56:00 Test Item Value Reference Range Interpretation Comments IVETTE Interp (test code Pattern appears = IVETTE Interp) Nucleolar. [facility] HospitalYickefsBGAFJSFZRZ9647-61-53 14:56:00 Test Item Value Reference Range Interpretation Comments IVETTE Titer (test code = 1:40 *ABN*(06/11/16 IVETTE Titer) 8:56 AM) [facility] HospitalHueegojXLXVLYZHUH1741-03-67 14:56:00 Test Item Value Reference Range Interpretation Comments Hep Bs Ag (test code Negative *NA*(06/11/16 = Hep Bs Ag) 8:56 AM) [facility] HospitalCdlnqyxZGTKVUFOHE3972-77-99 14:56:00 Test Item Value Reference Range Interpretation Comments Hep C Ab (test code = Negative *NA*(06/11/16 Hep C Ab) 8:56 AM) [facility] HospitalIjnhnrbYHOEYLLWJI6225-96-88 14:56:00 Test Item Value Reference Range Interpretation Comments Hep B Core IgM (test Negative *NA*(06/11/16 code = Hep B Core 8:56 AM) IgM) [facility] HospitalRynhgzkPMOEVVLOTN7727-41-22 14:56:00 Test Item Value Reference Range Interpretation Comments Hep A IgM (test code Negative *NA*(06/11/16 = Hep A IgM) 8:56 AM) [facility] HospitalQnfjnrxEWCSNYOGRV9123-66-38 14:56:00 Test Item Value Reference Range Interpretation Comments HIV Ag/Ab 4th Gen Negative *NA*(06/11/16 (test code = HIV 8:56 AM) Ag/Ab 4th Gen) [facility] HospitalUnhfowwCFILFJJVDF4977-98-20 14:56:00 Test Item Value Reference Range Interpretation Comments IVETTE (test code = IVETTE) Positive *ABN*(06/11/16 8:56 AM) [facility] HospitalYnxvceuZFHVWDVGSA0546-10-79 14:56:00 Test Item Value Reference Range Interpretation Comments IVETTE Interp (test code Pattern appears = IVETTE Interp) Nucleolar. [facility] HospitalBwoaqwjXLSFYSPKLO9381-51-96 14:56:00 Test Item Value Reference Range Interpretation Comments IVETTE Titer (test code = 1:40 *ABN*(06/11/16 IVETTE Titer) 8:56 AM) [facility] HospitalMjxavbmHWYTEMMJAJ6022-49-87 14:56:00 Test Item Value Reference Range Interpretation Comments Hep Bs Ag (test code Negative *NA*(06/11/16 = Hep Bs Ag) 8:56 AM) [facility] HospitalGykptvtPNSQQYAMJH8169-32-82 14:56:00 Test Item Value Reference Range Interpretation Comments Hep C Ab (test code = Negative *NA*(06/11/16 Hep C Ab) 8:56 AM) [facility] HospitalXyqqgsmSIZFAECOOW9207-84-15 14:56:00 Test Item Value Reference Range Interpretation Comments Hep B Core IgM (test Negative *NA*(06/11/16 code = Hep B Core 8:56 AM) IgM) [facility] HospitalIisftypBKBCBWXTDX6315-49-37 14:56:00 Test Item Value Reference Range Interpretation Comments Hep A IgM (test code Negative *NA*(06/11/16 = Hep A IgM) 8:56 AM) [facility] HospitalTljbdyuOOYGSVAKNM9155-74-95 14:56:00 Test Item Value Reference Range Interpretation Comments HIV Ag/Ab 4th Gen Negative *NA*(06/11/16 (test code = HIV 8:56 AM) Ag/Ab 4th Gen) [facility] HospitalAhuchkvLQZVZQGRES6872-13-66 14:56:00 Test Item Value Reference Range Interpretation Comments IVETTE (test code = IVETTE) Positive *ABN*(06/11/16 8:56 AM) [facility] HospitalHjlvbhtOWCAQUTFQP8100-19-20 14:56:00 Test Item Value Reference Range Interpretation Comments IVETTE Interp (test code Pattern appears = IVETTE Interp) Nucleolar. [facility] HospitalAqvoefoJGOFIFRCZW5244-36-61 14:56:00 Test Item Value Reference Range Interpretation Comments IVETTE Titer (test code = 1:40 *ABN*(06/11/16 IVETTE Titer) 8:56 AM) [facility] HospitalXnxscwfFKSIHNOMAZ7955-93-62 14:56:00 Test Item Value Reference Range Interpretation Comments Hep Bs Ag (test code Negative *NA*(06/11/16 = Hep Bs Ag) 8:56 AM) [facility] HospitalDicaeahBQHJGIQPXC6002-76-97 14:56:00 Test Item Value Reference Range Interpretation Comments Hep C Ab (test code = Negative *NA*(06/11/16 Hep C Ab) 8:56 AM) [facility] HospitalOggtuoaODYAMSAZFU5505-18-59 14:56:00 Test Item Value Reference Range Interpretation Comments Hep B Core IgM (test Negative *NA*(06/11/16 code = Hep B Core 8:56 AM) IgM) [facility] HospitalJgfztfoWQMJEPMWFI8790-39-17 14:56:00 Test Item Value Reference Range Interpretation Comments Hep A IgM (test code Negative *NA*(06/11/16 = Hep A IgM) 8:56 AM) [facility] HospitalVldgmcfDUBDDETLYX9208-29-49 14:56:00 Test Item Value Reference Range Interpretation Comments HIV Ag/Ab 4th Gen Negative *NA*(06/11/16 (test code = HIV 8:56 AM) Ag/Ab 4th Gen) [facility] HospitalTbfjigeLUXGFVCUAI4802-95-62 14:56:00 Test Item Value Reference Range Interpretation Comments IVETTE (test code = IVETTE) Positive *ABN*(06/11/16 8:56 AM) [facility] HospitalTxehfawNQIREOIWGD2910-69-86 14:56:00 Test Item Value Reference Range Interpretation Comments IVETTE Interp (test code Pattern appears = IVETTE Interp) Nucleolar. [facility] HospitalSyxcnqiNRFHZKVBAV5214-49-99 14:56:00 Test Item Value Reference Range Interpretation Comments IVETTE Titer (test code = 1:40 *ABN*(06/11/16 IVETTE Titer) 8:56 AM) [facility] HospitalNgcowyvYZHEGVYIUT7046-62-06 14:56:00 Test Item Value Reference Range Interpretation Comments Hep Bs Ag (test code Negative *NA*(06/11/16 = Hep Bs Ag) 8:56 AM) [facility] HospitalPyaabuyPSAWEZFAOZ7180-90-61 14:56:00 Test Item Value Reference Range Interpretation Comments Hep C Ab (test code = Negative *NA*(06/11/16 Hep C Ab) 8:56 AM) [facility] HospitalUztulmiRORWISGKAH3661-62-68 14:56:00 Test Item Value Reference Range Interpretation Comments Hep B Core IgM (test Negative *NA*(06/11/16 code = Hep B Core 8:56 AM) IgM) [facility]ZgrhhptNSLLTPMSLE3116-79-34 14:56:00 Test Item Value Reference Range Interpretation Comments Hep A IgM (test code Negative *NA*(06/11/16 = Hep A IgM) 8:56 AM) [facility] HospitalColpdvaSFHYPHWGZI7585-31-24 14:56:00 Test Item Value Reference Range Interpretation Comments HIV Ag/Ab 4th Gen Negative *NA*(06/11/16 (test code = HIV 8:56 AM) Ag/Ab 4th Gen) [facility]aleJpohqldJZVBOUEWFY7455-66-64 14:56:00 Test Item Value Reference Range Interpretation [...] this result as reji l/abnormal. [facility] HospitalCzimillTPHFCSUHHA9572-63-49 10:42:00 Test Item Value Reference Range Interpretation Comments INR (test code = INR) 1.06 0.85-1.17 [facility] HospitalIyqtoloSKFRXACBRH9525-91-31 10:42:00 Test Item Value Reference Range Interpretation Comments PT (test code = PT) 14.0 s 12.0-14.7 [facility] HospitalMazdutrJOAFFZOCAV3180-03-30 10:42:00 Test Item Value Reference Range Interpretation Comments PTT (test code = PTT) 36.4 s 22.9-35.8 [facility] ZSVYONLHA9737-31-29 10:42:00 Test Item Value Reference Range Interpretation [...] this result as reji l/abnormal. [facility] HospitalJtxklmaFOQYZQHVLG8430-07-00 10:42:00 Test Item Value Reference Range Interpretation Comments INR (test code = INR) 1.06 0.85-1.17 [facility]YmoouopXTAPYUUUYD1269-67-97 10:42:00 Test Item Value Reference Range Interpretation Comments PT (test code = PT) 14.0 s 12.0-14.7 [facility] RegionHkzusviQKTWXDNCHZ3530-23-09 10:42:00 Test Item Value Reference Range Interpretation Comments PTT (test code = PTT) 36.4 s 22.9-35.8 [facility] JTYLDTRFW4535-25-89 10:42:00 Test Item Value Reference Range Interpretation [...] this result as reji l/abnormal. [facility] HospitalFqabwvfAKTKQZCVTZ1092-86-02 10:42:00 Test Item Value Reference Range Interpretation Comments INR (test code = INR) 1.06 0.85-1.17 [facility] RegionAimdeciURINMESVPG3186-54-47 10:42:00 Test Item Value Reference Range Interpretation Comments PT (test code = PT) 14.0 s 12.0-14.7 [facility] RegionAuwvspjMNDLQGTLDI2594-70-20 10:42:00 Test Item Value Reference Range Interpretation Comments PTT (test code = PTT) 36.4 s 22.9-35.8 [facility] MLTAYVTAF0000-78-39 10:42:00 Test Item Value Reference Range Interpretation Comments Hgb A1C (test code = Hgb A1C) 10.5 [facility]2016-12-22 10:42:00 Test Item Value Reference Range Interpretation Comments Bili Total (test code = Bili Total) 0.1 0.2-1.3 [place] 691096-12-22 10:42:00 Test Item Value Reference Range Interpretation Comments Total Protein (test code = Total 5.2 6.4-8.4 Protein) [facility]2016-12-22 10:42:00 Test Item Value Reference Range Interpretation Comments Albumin Lvl (test code = Albumin Lvl) 1.6 3.5-5.0 [place] 691096-12-22 10:42:00 Test Item Value Reference Range Interpretation Comments B/C Ratio (test code = B/C Ratio) 20 6-25 [place] 691096-12-22 10:42:00 Test Item Value Reference Range Interpretation Comments Globulin (test code = Globulin) 3.6 2.7-4.2 [place] 691096-12-22 10:42:00 Test Item Value Reference Range Interpretation Comments A/G Ratio (test code = A/G Ratio) 0.4 0.7-1.6 [place] 691096-12-22 10:42:00 Test Item Value Reference Range Interpretation [...] this result as reji l/abnormal. [facility] HospitalJwnsbxyOSZIVFULGG7039-39-41 10:42:00 Test Item Value Reference Range Interpretation Comments INR (test code = INR) 1.06 0.85-1.17 [place] 530836-12-22 10:42:00 Test Item Value Reference Range Interpretation Comments PT (test code = PT) 14.0 s 12.0-14.7 [place] 530836-12-22 10:42:00 Test Item Value Reference Range Interpretation Comments PTT (test code = PTT) 36.4 s 22.9-35.8 [facility] DYWLUFNVX5884-07-31 10:42:00 Test Item Value Reference Range Interpretation [...] [facility]alePqnsfgnYAPYYFDJOA1328-84-76 10:42:00 Test Item Value Reference Range Interpretation Comments INR (test code = INR) 1.06 0.85-1.17 [facility] [id number] 10:42:00 Test Item Value Reference Range Interpretation Comments PT (test code = PT) 14.0 s 12.0-14.7 [facility] [id number] 10:42:00 Test Item Value Reference Range Interpretation Comments PTT (test code = PTT) 36.4 [facility] 22[facility]35.8 [facility] [id number] 10:42:00 Test Item Value Reference Range Interpretation Comments Hgb A1C (test code = Hgb A1C) 10.5 [facility] [id number] 02:08:00 Test Item Value Reference Range Interpretation Comments CK MB Index (test 1.8 See_Comment [Automate d message] The code = CK MB Index) system w [facility] generated this result transmit rohit reference range : <=2.5. The reference range was not used to interpr et this result as reji l/abnormal. [facility] [id number] 02:08:00 Test Item Value Reference Range Interpretation Comments CK MB (test code = CK MB) 2.9 0.5-3.6 [facility] [id number] 02:08:00 Test Item Value Reference Range Interpretation Comments Troponin-T (test code 0.061 See_Comment [Auto mated message] The = Troponin-T) system which g enerated this result transmit rohit reference range : <=0.100. The reference r leo was not used to interpr et this result as reji l/abnormal. [facility] [id number] 02:08:00 Test Item Value Reference Range Interpretation Comments Total CK (test code = Total CK) 159 12-191 [facility] [id number] 02:08:00 Test Item Value Reference Range Interpretation Comments Troponin-I (test code no gt See_Comment [Auto mated message] The = Troponin-I) system which g enerated this result transmit rohit reference range : <=0.40. The reference r leo was not used to interpr et this result as reji l/abnormal. [place] [id number] 02:08:00 Test Item Value Reference Range Interpretation Comments Bili Total (test code = Bili Total) 0.2 0.2-1.3 [place] [id number] 02:08:00 Test Item Value Reference Range Interpretation Comments Bili Direct (test code 0.1 See_Comment [Aut omated message] The = Bili Direct) system which generated this result tra nsmitted reference range : <=0.3. The reference r leo was not used to int erpret this result as reji l/abnormal. [place] [id number] 02:08:00 Test Item Value Reference Range Interpretation Comments Bili Indirect (test 0.1 See_Comment [Automa rohit message] The code = Bili Indirect) system which generated this result tra nsmitted reference range : <=1.0. The reference r leo was not used to int erpret this result as normal/abnormal . [place] [id number] 02:08:00 Test Item Value Reference Range Interpretation Comments Total Protein (test code = Total 5.7 6.4-8.4 Protein) [place] [id number] 02:08:00 Test Item Value Reference Range Interpretation Comments A/G Ratio (test code = A/G Ratio) 0.5 0.7-1.6 [place] [id number] 02:08:00 Test Item Value Reference Range Interpretation Comments Albumin Lvl (test code = Albumin Lvl) 1.8 3.5-5.0 [place] [id number] 02:08:00 Test Item Value Reference Range Interpretation Comments Globulin (test code = Globulin) 3.9 2.7-4.2 [place] [id number] 02:08:00 Test Item Value Reference Range Interpretation Comments Alk Phos (test code = Alk Phos) 99 39-136 [place] [id number] 02:08:00 Test Item Value Reference Range Interpretation Comments AST (test code = AST) 21 See_Comment [Auto mated message] The system which ge nerated this result transmit rohit reference range : <=37. The reference range was not used to interpr et this result as reji l/abnormal. [facility] [id number] 02:08:00 Test Item Value Reference Range Interpretation Comments ALT (test code = ALT) 17 See_Comment [Auto mated message] The system which ge nerated this result transmit rohit reference range : <=65. The reference range was not used to interpr et this result as reji l/abnormal. [facility] [id number] 02:08:00 Test Item Value Reference Range Interpretation Comments UDS Note (test code = See Note *NA*(06/10/16 UDS Note) 8:08 PM) [facility] [id number] 02:08:00 Test Item Value Reference Range Interpretation Comments U Propoxyph Scr (test Negative *NA*(06/10/16 code = U Propoxyph Scr) 8:08 PM) [facility] [id number] 02:08:00 Test Item Value Reference Range Interpretation Comments U Opiate Scr (test Negative *NA*(06/10/16 code = U Opiate Scr) 8:08 PM) [facility] [id number] 02:08:00 Test Item Value Reference Range Interpretation Comments U Methadone Scr (test Negative *NA*(06/10/16 code = U Methadone Scr) 8:08 PM) [facility] [id number] 02:08:00 Test Item Value Reference Range Interpretation Comments U Phencyc Scr (test Negative *NA*(06/10/16 code = U Phencyc Scr) 8:08 PM) [facility] [id number] 02:08:00 Test Item Value Reference Range Interpretation Comments U Cannab Scr (test Negative *NA*(06/10/16 code = U Cannab Scr) 8:08 PM) [facility] [id number] 02:08:00 Test Item Value Reference Range Interpretation Comments U Amph Scr (test code Negative *NA*(06/10/16 = U Amph Scr) 8:08 PM) [facility] [id number] 02:08:00 Test Item Value Reference Range Interpretation Comments U Kelly Scr (test code Negative *NA*(06/10/16 = U Kelly Scr) 8:08 PM) [facility] [id number] 02:08:00 Test Item Value Reference Range Interpretation Comments U Benzodia Scr (test Negative *NA*(06/10/16 code = U Benzodia Scr) 8:08 PM) [facility] [id number] 02:08:00 Test Item Value Reference Range Interpretation Comments U Cocaine Scr (test Negative *NA*(06/10/16 code = U Cocaine Scr) 8:08 PM) [facility] [id number] 02:08:00 Test Item Value Reference Range Interpretation Comments LDL (Calculated) (test code = LDL 75 (Calculated)) [facility] [id number] 02:08:00 Test Item Value Reference Range Interpretation Comments VLDL (test code = VLDL) 27 [facility] [id number] 02:08:00 Test Item Value Reference Range Interpretation Comments Chol (test code = Chol) 133 [facility] [id number] 02:08:00 Test Item Value Reference Range Interpretation Comments Trig (test code = Trig) 133 [facility] [id number] 02:08:00 Test Item Value Reference Range Interpretation Comments CHD Risk (test code = CHD Risk) 4.29 3.90-5.80 [facility] [id number] 02:08:00 Test Item Value Reference Range Interpretation Comments HDL (test code = HDL) 31 [facility] [id number] 02:08:00 Test Item Value Reference Range Interpretation Comments UA Urobilinogen (test code = UA <=1.0 mg/dL 0.1-1.0 Urobilinogen) [facility] [id number] 02:08:00 Test Item Value Reference Range Interpretation Comments UA Ketones (test code = UA Negative mg/dL Ketones) [facility] [id number] 02:08:00 Test Item Value Reference Range Interpretation Comments UA Glucose (test code = UA Glucose) 300 mg/dL [facility] [id number] 02:08:00 Test Item Value Reference Range Interpretation Comments UA Protein (test code = UA >=300 mg/dL Protein) [facility] [id number] 02:08:00 Test Item Value Reference Range Interpretation Comments UA pH (test code = UA pH) 6.0 5.0-8.0 [facility] [id number] 02:08:00 Test Item Value Reference Range Interpretation Comments UA Nitrite (test code Negative (06/10/16 8:08 = UA Nitrite) PM) [facility] AND [id number] 02:08:00 Test Item Value Reference Range Interpretation Comments UA Blood (test code = Trace *ABN*(06/10/16 UA Blood) 8:08 PM) [facility] AND [id number] 02:08:00 Test Item Value Reference Range Interpretation Comments UA Bili (test code = Negative *NA*(06/10/16 UA Bili) 8:08 PM) [facility] AND [id number] 02:08:00 Test Item Value Reference Range Interpretation Comments UA Mucus (test code = UA Mucus) Few /LPF [facility] AND [id number] 02:08:00 Test Item Value Reference Range Interpretation Comments UA RBC (test code = 4 See_Comment [Automa rohit message] The UA RBC) system which ge nerated this result transmit rohit reference range : <=2. The reference range was not used to interpr et this result as reji l/abnormal. [facility] AND [id number] 02:08:00 Test Item Value Reference Range Interpretation Comments UA Sq Epi (test code = UA Sq Epi) Few /LPF [facility] AND [id number] 02:08:00 Test Item Value Reference Range Interpretation Comments UA WBC (test code = 5 See_Comment [Automa rohit message] The UA WBC) system which ge nerated this result transmit rohit reference range : <=5. The reference range was not used to interpr et this result as reji l/abnormal. [facility] AND [id number] 02:08:00 Test Item Value Reference Range Interpretation Comments UA Leuk Est (test code Small *ABN*(06/10/16 = UA Leuk Est) 8:08 PM) [facility] AND [id number] 02:08:00 Test Item Value Reference Range Interpretation Comments UA Hyal Cast (test 1 See_Comment [Automat ed message] The code = UA Hyal Cast) system which generated this result transmit rohit reference range : <=2. The reference range was not used to interpr et this result as reji l/abnormal. [facility] VinUR[facility] AND [id number] 02:08:00 Test Item Value Reference Range Interpretation Comments UA Spec Grav (test code = UA Spec Grav) 1.009 [facility] AND [id number] 02:08:00 Test Item Value Reference Range Interpretation Comments UA Color (test code = Yellow *NA*(06/10/16 UA Color) 8:08 PM) [facility] AND [id number] 02:08:00 Test Item Value Reference Range Interpretation Comments UA Turbidity (test code = Clear (06/10/16 8:08 UA Turbidity) PM) [facility] [id number] 02:08:00 Test Item Value Reference Range Interpretation Comments U Preg (test code = U Negative (06/10/16 8:08 Preg) PM) [facility] [id number] 02:08:00 Test Item Value Reference Range Interpretation Comments U Protein (test code = U Protein) 375.4 [facility] [id number] 02:08:00 Test Item Value Reference Range Interpretation Comments U Prot/Creat (test code = U Prot/Creat) 5.4 [facility] [id number] 02:08:00 Test Item Value Reference Range Interpretation Comments U Creatinine (test code = U Creatinine) 69.80 [facility] VinCARDIAC [id number] 02:08:00 Test Item Value Reference Range Interpretation Comments CK MB Index (test 1.8 See_Comment [Automate d message] The code = CK MB Index) system w [facility] generated this result transmit rohit reference range : <=2.5. The reference range was not used to interpr et this result as reji l/abnormal. [facility] BossmanannCARDIAC [id number] 02:08:00 Test Item Value Reference Range Interpretation Comments CK MB (test code = CK MB) 2.9 0.5-3.6 [facility]AC [id number] 02:08:00 Test Item Value Reference Range Interpretation Comments Troponin-T (test code 0.061 See_Comment [Auto mated message] The = Troponin-T) system which g enerated this result transmit orhit reference range : <=0.100. The reference r leo was not used to interpr et this result as reji l/abnormal. [facility] [id number] 02:08:00 Test Item Value Reference Range Interpretation Comments Total CK (test code = Total CK) 159 12-191 [facility] [id number] 02:08:00 Test Item Value Reference Range Interpretation Comments Troponin-I (test code no gt See_Comment [Auto mated message] The = Troponin-I) system which g enerated this result transmit rohit reference range : <=0.40. The reference r leo was not used to interpr et this result as reji l/abnormal. [facility] [id number] 02:08:00 Test Item Value Reference Range Interpretation Comments Bili Total (test code = Bili Total) 0.2 0.2-1.3 [facility]aleShopReply [id number] 02:08:00 Test Item Value Reference Range Interpretation Comments Bili Direct (test code 0.1 See_Comment [Aut omated message] The = Bili Direct) system which generated this result tra nsmitted reference range : <=0.3. The reference r leo was not used to int erpret this result as reji l/abnormal. [facility]aleShopReply [id number] 02:08:00 Test Item Value Reference Range Interpretation Comments Bili Indirect (test 0.1 See_Comment [Automa rohit message] The code = Bili Indirect) system which generated this result tra nsmitted reference range : <=1.0. The reference r leo was not used to int erpret this result as normal/abnormal . [facility] [id number] 02:08:00 Test Item Value Reference Range Interpretation Comments Total Protein (test code = Total 5.7 6.4-8.4 Protein) [facility]aleShopReply [id number] 02:08:00 Test Item Value Reference Range Interpretation Comments A/G Ratio (test code = A/G Ratio) 0.5 0.7-1.6 [facility]aleShopReply [id number] 02:08:00 Test Item Value Reference Range Interpretation Comments Albumin Lvl (test code = Albumin Lvl) 1.8 3.5-5.0 [facility]aleShopReply [id number] 02:08:00 Test Item Value Reference Range Interpretation Comments Globulin (test code = Globulin) 3.9 2.7-4.2 [facility] [employer] [id number] 02:08:00 Test Item Value Reference Range Interpretation Comments Alk Phos (test code = Alk Phos) 99 39-136 [facility] [id number] 02:08:00 Test Item Value Reference Range Interpretation Comments AST (test code = AST) 21 See_Comment [Auto mated message] The system which ge nerated this result transmit rohit reference range : <=37. The reference range was not used to interpr et this result as reji l/abnormal. [facility] [id number] 02:08:00 Test Item Value Reference Range Interpretation Comments ALT (test code = ALT) 17 See_Comment [Auto mated message] The system which ge nerated this result transmit rohit reference range : <=65. The reference range was not used to interpr et this result as reji l/abnormal. [facility] [employer] [id number] 02:08:00 Test Item Value Reference Range Interpretation Comments UDS Note (test code = See Note *NA*(06/10/16 UDS Note) 8:08 PM) [facility] CuppleannTheatro [id number] 02:08:00 Test Item Value Reference Range Interpretation Comments U Propoxyph Scr (test Negative *NA*(06/10/16 code = U Propoxyph Scr) 8:08 PM) [facility] CuppleannDRUG [id number] 02:08:00 Test Item Value Reference Range Interpretation Comments U Opiate Scr (test Negative *NA*(06/10/16 code = U Opiate Scr) 8:08 PM) [facility] CuppleannDRUG [id number] 02:08:00 Test Item Value Reference Range Interpretation Comments U Methadone Scr (test Negative *NA*(06/10/16 code = U Methadone Scr) 8:08 PM) [facility] CuppleannDRUG [id number] 02:08:00 Test Item Value Reference Range Interpretation Comments U Phencyc Scr (test Negative *NA*(06/10/16 code = U Phencyc Scr) 8:08 PM) [facility] CuppleannDRUG [id number] 02:08:00 Test Item Value Reference Range Interpretation Comments U Cannab Scr (test Negative *NA*(06/10/16 code = U Cannab Scr) 8:08 PM) [facility] [id number] 02:08:00 Test Item Value Reference Range Interpretation Comments U Amph Scr (test code Negative *NA*(06/10/16 = U Amph Scr) 8:08 PM) [facility] [id number] 02:08:00 Test Item Value Reference Range Interpretation Comments U Kelly Scr (test code Negative *NA*(06/10/16 = U Kelly Scr) 8:08 PM) [facility] [id number] 02:08:00 Test Item Value Reference Range Interpretation Comments U Benzodia Scr (test Negative *NA*(06/10/16 code = U Benzodia Scr) 8:08 PM) [facility] [id number] 02:08:00 Test Item Value Reference Range Interpretation Comments U Cocaine Scr (test Negative *NA*(06/10/16 code = U Cocaine Scr) 8:08 PM) [facility] [id number] 02:08:00 Test Item Value Reference Range Interpretation Comments LDL (Calculated) (test code = LDL 75 (Calculated)) [facility] [id number] 02:08:00 Test Item Value Reference Range Interpretation Comments VLDL (test code = VLDL) 27 [facility] [id number] 02:08:00 Test Item Value Reference Range Interpretation Comments Chol (test code = Chol) 133 [facility] [id number] 02:08:00 Test Item Value Reference Range Interpretation Comments Trig (test code = Trig) 133 [facility] [id number] 02:08:00 Test Item Value Reference Range Interpretation Comments CHD Risk (test code = CHD Risk) 4.29 3.90-5.80 [facility] [id number] 02:08:00 Test Item Value Reference Range Interpretation Comments HDL (test code = HDL) 31 [facility] [id number] 02:08:00 Test Item Value Reference Range Interpretation Comments UA Urobilinogen (test code = UA <=1.0 mg/dL 0.1-1.0 Urobilinogen) [facility] [id number] 02:08:00 Test Item Value Reference Range Interpretation Comments UA Ketones (test code = UA Negative mg/dL Ketones) [facility] AND [id number] 02:08:00 Test Item Value Reference Range Interpretation Comments UA Glucose (test code = UA Glucose) 300 mg/dL [facility] AND [id number] 02:08:00 Test Item Value Reference Range Interpretation Comments UA Protein (test code = UA >=300 mg/dL Protein) [facility] AND [id number] 02:08:00 Test Item Value Reference Range Interpretation Comments UA pH (test code = UA pH) 6.0 5.0-8.0 [facility] AND [id number] 02:08:00 Test Item Value Reference Range Interpretation Comments UA Nitrite (test code Negative (06/10/16 8:08 = UA Nitrite) PM) [facility] AND [id number] 02:08:00 Test Item Value Reference Range Interpretation Comments UA Blood (test code = Trace *ABN*(06/10/16 UA Blood) 8:08 PM) [facility] AND [id number] 02:08:00 Test Item Value Reference Range Interpretation Comments UA Bili (test code = Negative *NA*(06/10/16 UA Bili) 8:08 PM) [facility] AND [id number] 02:08:00 Test Item Value Reference Range Interpretation Comments UA Mucus (test code = UA Mucus) Few /LPF [facility] AND [id number] 02:08:00 Test Item Value Reference Range Interpretation Comments UA RBC (test code = 4 See_Comment [Automa rohit message] The UA RBC) system which ge nerated this result transmit rohit reference range : <=2. The reference range was not used to interpr et this result as reji l/abnormal. [facility] AND [id number] 02:08:00 Test Item Value Reference Range Interpretation Comments UA Sq Epi (test code = UA Sq Epi) Few /LPF [facility] AND [id number] 02:08:00 Test Item Value Reference Range Interpretation Comments UA WBC (test code = 5 See_Comment [Automa rohit message] The UA WBC) system which ge nerated this result transmit rohit reference range : <=5. The reference range was not used to interpr et this result as reji l/abnormal. [facility] HermannURINE AND [id number] 02:08:00 Test Item Value Reference Range Interpretation Comments UA Leuk Est (test code Small *ABN*(06/10/16 = UA Leuk Est) 8:08 PM) [facility] [id number] 02:08:00 Test Item Value Reference Range Interpretation Comments UA Hyal Cast (test 1 See_Comment [Automat ed message] The code = UA Hyal Cast) system which generated this result transmit rohit reference range : <=2. The reference range was not used to interpr et this result as reji l/abnormal. [facility] [id number] 02:08:00 Test Item Value Reference Range Interpretation Comments UA Spec Grav (test code = UA Spec Grav) 1.009 [facility] [id number] 02:08:00 Test Item Value Reference Range Interpretation Comments UA Color (test code = Yellow *NA*(06/10/16 UA Color) 8:08 PM) [facility] [id number] 02:08:00 Test Item Value Reference Range Interpretation Comments UA Turbidity (test code = Clear (06/10/16 8:08 UA Turbidity) PM) [facility] [id number] 02:08:00 Test Item Value Reference Range Interpretation Comments U Preg (test code = U Negative (06/10/16 8:08 Preg) PM) [facility] [id number] 02:08:00 Test Item Value Reference Range Interpretation Comments U Protein (test code = U Protein) 375.4 [facility] [id number] 02:08:00 Test Item Value Reference Range Interpretation Comments U Prot/Creat (test code = U Prot/Creat) 5.4 [facility] [id number] 02:08:00 Test Item Value Reference Range Interpretation Comments U Creatinine (test code = U Creatinine) 69.80 [facility]annCARD[facility]AC [id number] 02:08:00 Test Item Value Reference Range Interpretation Comments CK MB Index (test 1.8 See_Comment [Automate d message] The code = CK MB Index) system w [facility] generated this result transmit rohit reference range : <=2.5. The reference range was not used to interpr et this result as reji l/abnormal. [facility] [employer]2016-12-22 02:08:00 Test Item Value Reference Range Interpretation Comments CK MB (test code = CK MB) 2.9 0.5-3.6 [facility]Om[facility] [id number] 02:08:00 Test Item Value Reference Range Interpretation Comments Troponin-T (test code 0.061 See_Comment [Auto mated message] The = Troponin-T) system which g enerated this result transmit rohit reference range : <=0.100. The reference r leo was not used to interpr et this result as reji l/abnormal. [facility] [employer] [id number] 02:08:00 Test Item Value Reference Range Interpretation Comments Total CK (test code = Total CK) 159 12-191 [facility] [employer] [id number] 02:08:00 Test Item Value Reference Range Interpretation Comments Troponin-I (test code no gt See_Comment [Auto mated message] The = Troponin-I) system which g enerated this result transmit rohit reference range : <=0.40. The reference r leo was not used to interpr et this result as reji l/abnormal. [facility] [employer]2016-12-22 02:08:00 Test Item Value Reference Range Interpretation Comments Bili Total (test code = Bili Total) 0.2 0.2-1.3 [facility] [employer]2016-12-22 02:08:00 Test Item Value Reference Range Interpretation Comments Bili Direct (test code 0.1 See_Comment [Aut omated message] The = Bili Direct) system which generated this result tra nsmitted reference range : <=0.3. The reference r leo was not used to int erpret this result as reji l/abnormal. [facility] [employer]2016-12-22 02:08:00 Test Item Value Reference Range Interpretation Comments Bili Indirect (test 0.1 See_Comment [Automa rohit message] The code = Bili Indirect) system which generated this result tra nsmitted reference range : <=1.0. The reference r leo was not used to int erpret this result as normal/abnormal . [facility] [employer]2016-12-22 02:08:00 Test Item Value Reference Range Interpretation Comments Total Protein (test code = Total 5.7 6.4-8.4 Protein) [facility] [employer] [id number] 02:08:00 Test Item Value Reference Range Interpretation Comments A/G Ratio (test code = A/G Ratio) 0.5 0.7-1.6 [facility] [id number] 02:08:00 Test Item Value Reference Range Interpretation Comments Albumin Lvl (test code = Albumin Lvl) 1.8 3.5-5.0 [facility] [employer] [id number] 02:08:00 Test Item Value Reference Range Interpretation Comments Globulin (test code = Globulin) 3.9 2.7-4.2 [facility] [employer] [id number] 02:08:00 Test Item Value Reference Range Interpretation Comments Alk Phos (test code = Alk Phos) 99 39-136 [facility]anoForce-A [id number] 02:08:00 Test Item Value Reference Range Interpretation Comments AST (test code = AST) 21 See_Comment [Auto mated message] The system which ge nerated this result transmit rohit reference range : <=37. The reference range was not used to interpr et this result as reji l/abnormal. [facility] [employer] [id number] 02:08:00 Test Item Value Reference Range Interpretation Comments ALT (test code = ALT) 17 See_Comment [Auto mated message] The system which ge nerated this result transmit rohit reference range : <=65. The reference range was not used to interpr et this result as reji l/abnormal. [facility] [employer]2016-12-22 02:08:00 Test Item Value Reference Range Interpretation Comments UDS Note (test code = See Note *NA*(06/10/16 UDS Note) 8:08 PM) [facility] [employer]2016-12-22 02:08:00 Test Item Value Reference Range Interpretation Comments U Propoxyph Scr (test Negative *NA*(06/10/16 code = U Propoxyph Scr) 8:08 PM) [facility] [employer] [id number] 02:08:00 Test Item Value Reference Range Interpretation Comments U Opiate Scr (test Negative *NA*(06/10/16 code = U Opiate Scr) 8:08 PM) [facility] PlanoMobileForce Software [id number] 02:08:00 Test Item Value Reference Range Interpretation Comments U Methadone Scr (test Negative *NA*(06/10/16 code = U Methadone Scr) 8:08 PM) [facility] [id number] 02:08:00 Test Item Value Reference Range Interpretation Comments U Phencyc Scr (test Negative *NA*(06/10/16 code = U Phencyc Scr) 8:08 PM) [facility] [id number] 02:08:00 Test Item Value Reference Range Interpretation Comments U Cannab Scr (test Negative *NA*(06/10/16 code = U Cannab Scr) 8:08 PM) [facility] [id number] 02:08:00 Test Item Value Reference Range Interpretation Comments U Amph Scr (test code Negative *NA*(06/10/16 = U Amph Scr) 8:08 PM) [facility] [id number] 02:08:00 Test Item Value Reference Range Interpretation Comments U Kelly Scr (test code Negative *NA*(06/10/16 = U Kelly Scr) 8:08 PM) [facility]anoannDRUG [id number] 02:08:00 Test Item Value Reference Range Interpretation Comments U Benzodia Scr (test Negative *NA*(06/10/16 code = U Benzodia Scr) 8:08 PM) [facility]DR[facility] [id number] 02:08:00 Test Item Value Reference Range Interpretation Comments U Cocaine Scr (test Negative *NA*(06/10/16 code = U Cocaine Scr) 8:08 PM) [facility] [id number] 02:08:00 Test Item Value Reference Range Interpretation Comments LDL (Calculated) (test code = LDL 75 (Calculated)) [facility] [id number] 02:08:00 Test Item Value Reference Range Interpretation Comments VLDL (test code = VLDL) 27 [facility] [id number] 02:08:00 Test Item Value Reference Range Interpretation Comments Chol (test code = Chol) 133 [facility] YmvchvhJZCPST3240-16-03 02:08:00 Test Item Value Reference Range Interpretation Comments Trig (test code = Trig) 133 [facility] [id number] 02:08:00 Test Item Value Reference Range Interpretation Comments CHD Risk (test code = CHD Risk) 4.29 3.90-5.80 [facility] [id number] 02:08:00 Test Item Value Reference Range Interpretation Comments HDL (test code = HDL) 31 [facility] AND [id number] 02:08:00 Test Item Value Reference Range Interpretation Comments UA Urobilinogen (test code = UA <=1.0 mg/dL 0.1-1.0 Urobilinogen) [facility] AND [id number] 02:08:00 Test Item Value Reference Range Interpretation Comments UA Ketones (test code = UA Negative mg/dL Ketones) [facility] AND [id number] 02:08:00 Test Item Value Reference Range Interpretation Comments UA Glucose (test code = UA Glucose) 300 mg/dL [facility] AND [id number] 02:08:00 Test Item Value Reference Range Interpretation Comments UA Protein (test code = UA >=300 mg/dL Protein) [facility] AND [id number] 02:08:00 Test Item Value Reference Range Interpretation Comments UA pH (test code = UA pH) 6.0 5.0-8.0 [facility] AND [id number] 02:08:00 Test Item Value Reference Range Interpretation Comments UA Nitrite (test code Negative (06/10/16 8:08 = UA Nitrite) PM) [facility] AND [id number] 02:08:00 Test Item Value Reference Range Interpretation Comments UA Blood (test code = Trace *ABN*(06/10/16 UA Blood) 8:08 PM) [facility] AND [id number] 02:08:00 Test Item Value Reference Range Interpretation Comments UA Bili (test code = Negative *NA*(06/10/16 UA Bili) 8:08 PM) [facility] AND [id number] 02:08:00 Test Item Value Reference Range Interpretation Comments UA Mucus (test code = UA Mucus) Few /LPF [facility] AND [id number] 02:08:00 Test Item Value Reference Range Interpretation Comments UA RBC (test code = 4 See_Comment [Automa rohit message] The UA RBC) system which ge nerated this result transmit rohit reference range : <=2. The reference range was not used to interpr et this result as reji l/abnormal. [facility] AND [id number] 02:08:00 Test Item Value Reference Range Interpretation Comments UA Sq Epi (test code = UA Sq Epi) Few /LPF [facility] AND [id number] 02:08:00 Test Item Value Reference Range Interpretation Comments UA WBC (test code = 5 See_Comment [Automa rohit message] The UA WBC) system which ge nerated this result transmit rohit reference range : <=5. The reference range was not used to interpr et this result as reji l/abnormal. [facility] AND [id number] 02:08:00 Test Item Value Reference Range Interpretation Comments UA Leuk Est (test code Small *ABN*(06/10/16 = UA Leuk Est) 8:08 PM) [facility] AND [id number] 02:08:00 Test Item Value Reference Range Interpretation Comments UA Hyal Cast (test 1 See_Comment [Automat ed message] The code = UA Hyal Cast) system which generated this result transmit rohit reference range : <=2. The reference range was not used to interpr et this result as reji l/abnormal. [facility] AND [id number] 02:08:00 Test Item Value Reference Range Interpretation Comments UA Spec Grav (test code = UA Spec Grav) 1.009 [facility] AND [id number] 02:08:00 Test Item Value Reference Range Interpretation Comments UA Color (test code = Yellow *NA*(06/10/16 UA Color) 8:08 PM) [facility] AND [id number] 02:08:00 Test Item Value Reference Range Interpretation Comments UA Turbidity (test code = Clear (06/10/16 8:08 UA Turbidity) PM) [facility]2016-12-22 02:08:00 Test Item Value Reference Range Interpretation Comments U Preg (test code = U Negative (06/10/16 8:08 Preg) PM) [facility]2016-12-22 02:08:00 Test Item Value Reference Range Interpretation Comments U Protein (test code = U Protein) 375.4 [facility]2016-12-22 02:08:00 Test Item Value Reference Range Interpretation Comments U Prot/Creat (test code = U Prot/Creat) 5.4 [facility] BossmanannURINE [id number] 02:08:00 Test Item Value Reference Range Interpretation Comments U Creatinine (test code = U Creatinine) 69.80 [facility]annCARDIAC [id number] 02:08:00 Test Item Value Reference Range Interpretation Comments CK MB Index (test 1.8 See_Comment [Automate d message] The code = CK MB Index) system [facility] generated this result transmit rohit reference range : <=2.5. The reference range was not used to interpr et this result as reji l/abnormal. [facility]annCARDIAC [id number] 02:08:00 Test Item Value Reference Range Interpretation Comments CK MB (test code = CK MB) 2.9 0.5-3.6 [facility]annC[facility]IAC [id number] 02:08:00 Test Item Value Reference Range Interpretation Comments Troponin-T (test code 0.061 See_Comment [Auto mated message] The = Troponin-T) system which g enerated this result transmit rohit reference range : <=0.100. The reference r leo was not used to interpr et this result as reji l/abnormal. [facility] CuppleannCARDIAC [id number] 02:08:00 Test Item Value Reference Range Interpretation Comments Total CK (test code = Total CK) 159 12-191 [facility]annCARDIAC [id number] 02:08:00 Test Item Value Reference Range Interpretation Comments Troponin-I (test code no gt See_Comment [Auto mated message] The = Troponin-I) system which g enerated this result transmit rohit reference range : <=0.40. The reference r leo was not used to interpr et this result as reji l/abnormal. [facility] CuppleannCHEM [id number] 02:08:00 Test Item Value Reference Range Interpretation Comments Bili Total (test code = Bili Total) 0.2 0.2-1.3 [facility] CuppleannCHEM [id number] 02:08:00 Test Item Value Reference Range Interpretation Comments Bili Direct (test code 0.1 See_Comment [Aut omated message] The = Bili Direct) system which generated this result tra nsmitted reference range : <=0.3. The reference r leo was not used to int erpret this result as reji l/abnormal. [facility] [employer] [id number] 02:08:00 Test Item Value Reference Range Interpretation Comments Bili Indirect (test 0.1 See_Comment [Automa rohit message] The code = Bili Indirect) system which generated this result tra nsmitted reference range : <=1.0. The reference r leo was not used to int erpret this result as normal/abnormal . [facility] [employer] [id number] 02:08:00 Test Item Value Reference Range Interpretation Comments Total Protein (test code = Total 5.7 6.4-8.4 Protein) [facility]A [id number] 02:08:00 Test Item Value Reference Range Interpretation Comments A/G Ratio (test code = A/G Ratio) 0.5 0.7-1.6 [facility] [employer] [id number] 02:08:00 Test Item Value Reference Range Interpretation Comments Albumin Lvl (test code = Albumin Lvl) 1.8 3.5-5.0 [facility] [employer] [id number] 02:08:00 Test Item Value Reference Range Interpretation Comments Globulin (test code = Globulin) 3.9 2.7-4.2 [facility] [employer] [id number] 02:08:00 Test Item Value Reference Range Interpretation Comments Alk Phos (test code = Alk Phos) 99 39-136 [facility] [employer] [id number] 02:08:00 Test Item Value Reference Range Interpretation Comments AST (test code = AST) 21 See_Comment [Auto mated message] The system which ge nerated this result transmit rohit reference range : <=37. The reference range was not used to interpr et this result as reji l/abnormal. [facility] [employer] [id number] 02:08:00 Test Item Value Reference Range Interpretation Comments ALT (test code = ALT) 17 See_Comment [Auto mated message] The system which ge nerated this result transmit rohit reference range : <=65. The reference range was not used to interpr et this result as reji l/abnormal. [facility] PlanoWallixSOUTHWE[facility] [id number] 02:08:00 Test Item Value Reference Range Interpretation Comments UDS Note (test code = See Note *NA*(06/10/16 UDS Note) 8:08 PM) [facility] [id number] 02:08:00 Test Item Value Reference Range Interpretation Comments U Propoxyph Scr (test Negative *NA*(06/10/16 code = U Propoxyph Scr) 8:08 PM) [facility] [id number] 02:08:00 Test Item Value Reference Range Interpretation Comments U Opiate Scr (test Negative *NA*(06/10/16 code = U Opiate Scr) 8:08 PM) [facility] [id number] 02:08:00 Test Item Value Reference Range Interpretation Comments U Methadone Scr (test Negative *NA*(06/10/16 code = U Methadone Scr) 8:08 PM) [facility] [id number] 02:08:00 Test Item Value Reference Range Interpretation Comments U Phencyc Scr (test Negative *NA*(06/10/16 code = U Phencyc Scr) 8:08 PM) [facility]anoannDRUG [id number] 02:08:00 Test Item Value Reference Range Interpretation Comments U Cannab Scr (test Negative *NA*(06/10/16 code = U Cannab Scr) 8:08 PM) [facility] [id number] 02:08:00 Test Item Value Reference Range Interpretation Comments U Amph Scr (test code Negative *NA*(06/10/16 = U Amph Scr) 8:08 PM) [facility] [id number] 02:08:00 Test Item Value Reference Range Interpretation Comments U Kelly Scr (test code Negative *NA*(06/10/16 = U Kelly Scr) 8:08 PM) [facility]DR[facility] [id number] 02:08:00 Test Item Value Reference Range Interpretation Comments U Benzodia Scr (test Negative *NA*(06/10/16 code = U Benzodia Scr) 8:08 PM) [facility] [id number] 02:08:00 Test Item Value Reference Range Interpretation Comments U Cocaine Scr (test Negative *NA*(06/10/16 code = U Cocaine Scr) 8:08 PM) [facility] [id number] 02:08:00 Test Item Value Reference Range Interpretation Comments LDL (Calculated) (test code = LDL 75 (Calculated)) [facility] [id number] 02:08:00 Test Item Value Reference Range Interpretation Comments VLDL (test code = VLDL) 27 [facility] [id number] 02:08:00 Test Item Value Reference Range Interpretation Comments Chol (test code = Chol) 133 [facility] [id number] 02:08:00 Test Item Value Reference Range Interpretation Comments Trig (test code = Trig) 133 [facility] [id number] 02:08:00 Test Item Value Reference Range Interpretation Comments CHD Risk (test code = CHD Risk) 4.29 3.90-5.80 [facility] [id number] 02:08:00 Test Item Value Reference Range Interpretation Comments HDL (test code = HDL) 31 [facility] AND [id number] 02:08:00 Test Item Value Reference Range Interpretation Comments UA Urobilinogen (test code = UA <=1.0 mg/dL 0.1-1.0 Urobilinogen) [facility] AND [id number] 02:08:00 Test Item Value Reference Range Interpretation Comments UA Ketones (test code = UA Negative mg/dL Ketones) [facility] AND [id number] 02:08:00 Test Item Value Reference Range Interpretation Comments UA Glucose (test code = UA Glucose) 300 mg/dL [facility] AND [id number] 02:08:00 Test Item Value Reference Range Interpretation Comments UA Protein (test code = UA >=300 mg/dL Protein) [facility] AND [id number] 02:08:00 Test Item Value Reference Range Interpretation Comments UA pH (test code = UA pH) 6.0 5.0-8.0 [facility] AND [id number] 02:08:00 Test Item Value Reference Range Interpretation Comments UA Nitrite (test code Negative (06/10/16 8:08 = UA Nitrite) PM) [facility] AND [id number] 02:08:00 Test Item Value Reference Range Interpretation Comments UA Blood (test code = Trace *ABN*(06/10/16 UA Blood) 8:08 PM) [facility] AND [id number] 02:08:00 Test Item Value Reference Range Interpretation Comments UA Bili (test code = Negative *NA*(06/10/16 UA Bili) 8:08 PM) [facility] AND [id number] 02:08:00 Test Item Value Reference Range Interpretation Comments UA Mucus (test code = UA Mucus) Few /LPF [facility] AND [id number] 02:08:00 Test Item Value Reference Range Interpretation Comments UA RBC (test code = 4 See_Comment [Automa rohit message] The UA RBC) system which ge nerated this result transmit rohit reference range : <=2. The reference range was not used to interpr et this result as reji l/abnormal. [facility] AND [id number] 02:08:00 Test Item Value Reference Range Interpretation Comments UA Sq Epi (test code = UA Sq Epi) Few /LPF [facility] AND [id number] 02:08:00 Test Item Value Reference Range Interpretation Comments UA WBC (test code = 5 See_Comment [Automa rohit message] The UA WBC) system which ge nerated this result transmit rohit reference range : <=5. The reference range was not used to interpr et this result as reji l/abnormal. [facility] AND [id number] 02:08:00 Test Item Value Reference Range Interpretation Comments UA Leuk Est (test code Small *ABN*(06/10/16 = UA Leuk Est) 8:08 PM) [facility] AND [id number] 02:08:00 Test Item Value Reference Range Interpretation Comments UA Hyal Cast (test 1 See_Comment [Automat ed message] The code = UA Hyal Cast) system which generated this result transmit rohit reference range : <=2. The reference range was not used to interpr et this result as reji l/abnormal. [facility] AND [id number] 02:08:00 Test Item Value Reference Range Interpretation Comments UA Spec Grav (test code = UA Spec Grav) 1.009 [facility] AND [id number] 02:08:00 Test Item Value Reference Range Interpretation Comments UA Color (test code = Yellow *NA*(06/10/16 UA Color) 8:08 PM) [facility] AND [id number] 02:08:00 Test Item Value Reference Range Interpretation Comments UA Turbidity (test code = Clear (06/10/16 8:08 UA Turbidity) PM) [facility] [id number] 02:08:00 Test Item Value Reference Range Interpretation Comments U Preg (test code = U Negative (06/10/16 8:08 Preg) PM) [facility] [id number] 02:08:00 Test Item Value Reference Range Interpretation Comments U Protein (test code = U Protein) 375.4 [facility] [id number] 02:08:00 Test Item Value Reference Range Interpretation Comments U Prot/Creat (test code = U Prot/Creat) 5.4 [facility] [id number] 02:08:00 Test Item Value Reference Range Interpretation Comments U Creatinine (test code = U Creatinine) 69.80 [facility] SunnyvaleCARSysomosAC [id number] 02:08:00 Test Item Value Reference Range Interpretation Comments CK MB Index (test 1.8 See_Comment [Automate d message] The code = CK MB Index) system w [facility] generated this result transmit rohit reference range : <=2.5. The reference range was not used to interpr et this result as reji l/abnormal. [facility] [employer] [id number] 02:08:00 Test Item Value Reference Range Interpretation Comments CK MB (test code = CK MB) 2.9 0.5-3.6 [facility] SunnyvaleTrackMavenJAMES [facility] [id number] 02:08:00 Test Item Value Reference Range Interpretation Comments Troponin-T (test code 0.061 See_Comment [Auto mated message] The = Troponin-T) system which g enerated this result transmit rohit reference range : <=0.100. The reference r leo was not used to interpr et this result as reji l/abnormal. [facility] [employer] [id number] 02:08:00 Test Item Value Reference Range Interpretation Comments Total CK (test code = Total CK) 159 12-191 [facility] PlanoOmrix BiopharmaceuticalsAC [id number] 02:08:00 Test Item Value Reference Range Interpretation [...] (test code = Bili Total) 0.2 0.2-1.3 [place] [id number] 02:08:00 Test Item Value Reference Range Interpretation Comments Bili Direct (test code 0.1 See_Comment [Aut omated message] The = Bili Direct) system which generated this result tra nsmitted reference range : <=0.3. The reference r leo was not used to int erpret this result as reji l/abnormal. [place] [id number] 02:08:00 Test Item Value Reference Range Interpretation Comments Bili Indirect (test 0.1 See_Comment [Automa rohit message] The code = Bili Indirect) system which generated this result tra nsmitted reference range : <=1.0. The reference r leo was not used to int erpret this result as normal/abnormal . [place] [id number] 02:08:00 Test Item Value Reference Range Interpretation Comments Total Protein (test code = Total 5.7 6.4-8.4 Protein) [place] [id number] 02:08:00 Test Item Value Reference Range Interpretation Comments A/G Ratio (test code = A/G Ratio) 0.5 0.7-1.6 [place] [id number] 02:08:00 Test Item Value Reference Range Interpretation Comments Albumin Lvl (test code = Albumin Lvl) 1.8 3.5-5.0 [place] [id number] 02:08:00 Test Item Value Reference Range Interpretation Comments Globulin (test code = Globulin) 3.9 2.7-4.2 [place] [id number] 02:08:00 Test Item Value Reference Range Interpretation [...] et this result as reji l/abnormal. [facility] CuppleannCHEM [id number] 02:08:00 Test Item Value Reference Range Interpretation Comments ALT (test code = ALT) 17 See_Comment [Auto mated message] The system which ge nerated this result transmit rohit reference range : <=65. The reference range was not used to interpr et this result as reji l/abnormal. [facility] [id number] 02:08:00 Test Item Value Reference Range Interpretation Comments UDS Note (test code = See Note *NA*(06/10/16 UDS Note) 8:08 PM) [facility] [id number] 02:08:00 Test Item Value Reference Range Interpretation Comments U Propoxyph Scr (test Negative *NA*(06/10/16 code = U Propoxyph Scr) 8:08 PM) [facility] [id number] 02:08:00 Test Item Value Reference Range Interpretation Comments U Opiate Scr (test Negative *NA*(06/10/16 code = U Opiate Scr) 8:08 PM) [facility] [id number] 02:08:00 Test Item Value Reference Range Interpretation Comments U Methadone Scr (test Negative *NA*(06/10/16 code = U Methadone Scr) 8:08 PM) [facility] [id number] 02:08:00 Test Item Value Reference Range Interpretation Comments U Phencyc Scr (test Negative *NA*(06/10/16 code = U Phencyc Scr) 8:08 PM) [facility] [id number] 02:08:00 Test Item Value Reference Range Interpretation Comments U Cannab Scr (test Negative *NA*(06/10/16 code = U Cannab Scr) 8:08 PM) [facility] [id number] 02:08:00 Test Item Value Reference Range Interpretation Comments U Amph Scr (test code Negative *NA*(06/10/16 = U Amph Scr) 8:08 PM) [facility] [id number] 02:08:00 Test Item Value Reference Range Interpretation Comments U Kelly Scr (test code Negative *NA*(06/10/16 = U Kelly Scr) 8:08 PM) [facility]DR[facility] [id number] 02:08:00 Test Item Value Reference Range Interpretation Comments U Benzodia Scr (test Negative *NA*(06/10/16 code = U Benzodia Scr) 8:08 PM) [facility]anoannDRUG [id number] 02:08:00 Test Item Value Reference Range Interpretation Comments U Cocaine Scr (test Negative *NA*(06/10/16 code = U Cocaine Scr) 8:08 PM) [facility] [id number] 02:08:00 Test Item Value Reference Range Interpretation Comments LDL (Calculated) (test code = LDL 75 (Calculated)) [facility] [id number] 02:08:00 Test Item Value Reference Range Interpretation Comments VLDL (test code = VLDL) 27 [facility] [id number] 02:08:00 Test Item Value Reference Range Interpretation Comments Chol (test code = Chol) 133 [facility] [id number] 02:08:00 Test Item Value Reference Range Interpretation Comments Trig (test code = Trig) 133 [facility] [id number] 02:08:00 Test Item Value Reference Range Interpretation Comments CHD Risk (test code = CHD Risk) 4.29 3.90-5.80 [facility] [id number] 02:08:00 Test Item Value Reference Range Interpretation Comments HDL (test code = HDL) 31 [facility]annKESSL[facility] FOR REHABILITATION AND [id number] 02:08:00 Test Item Value Reference Range Interpretation Comments UA Urobilinogen (test code = UA <=1.0 mg/dL 0.1-1.0 Urobilinogen) [facility] [id number] 02:08:00 Test Item Value Reference Range Interpretation Comments UA Ketones (test code = UA Negative mg/dL Ketones) [facility] [id number] 02:08:00 Test Item Value Reference Range Interpretation Comments UA Glucose (test code = UA Glucose) 300 mg/dL [facility] [id number] 02:08:00 Test Item Value Reference Range Interpretation Comments UA Protein (test code = UA >=300 mg/dL Protein) [facility] [id number] 02:08:00 Test Item Value Reference Range Interpretation Comments UA pH (test code = UA pH) 6.0 5.0-8.0 [facility]ann[facility] AND [id number] 02:08:00 Test Item Value Reference Range Interpretation Comments UA Nitrite (test code Negative (06/10/16 8:08 = UA Nitrite) PM) [facility] AND [id number] 02:08:00 Test Item Value Reference Range Interpretation Comments UA Blood (test code = Trace *ABN*(06/10/16 UA Blood) 8:08 PM) [facility] AND [id number] 02:08:00 Test Item Value Reference Range Interpretation Comments UA Bili (test code = Negative *NA*(06/10/16 UA Bili) 8:08 PM) [facility] AND [id number] 02:08:00 Test Item Value Reference Range Interpretation Comments UA Mucus (test code = UA Mucus) Few /LPF [facility] AND [id number] 02:08:00 Test Item Value Reference Range Interpretation Comments UA RBC (test code = 4 See_Comment [Automa rohit message] The UA RBC) system which ge nerated this result transmit rohit reference range : <=2. The reference range was not used to interpr et this result as reji l/abnormal. [facility] AND [id number] 02:08:00 Test Item Value Reference Range Interpretation Comments UA Sq Epi (test code = UA Sq Epi) Few /LPF [facility] AND [id number] 02:08:00 Test Item Value Reference Range Interpretation Comments UA WBC (test code = 5 See_Comment [Automa rohit message] The UA WBC) system which ge nerated this result transmit rohit reference range : <=5. The reference range was not used to interpr et this result as reji l/abnormal. [facility] AND [id number] 02:08:00 Test Item Value Reference Range Interpretation Comments UA Leuk Est (test code Small *ABN*(06/10/16 = UA Leuk Est) 8:08 PM) [facility] AND [id number] 02:08:00 Test Item Value Reference Range Interpretation Comments UA Hyal Cast (test 1 See_Comment [Automat ed message] The code = UA Hyal Cast) system which generated this result transmit rohit reference range : <=2. The reference range was not used to interpr et this result as reji l/abnormal. [facility] [id number] 02:08:00 Test Item Value Reference Range Interpretation Comments UA Spec Grav (test code = UA Spec Grav) 1.009 [facility] [id number] 02:08:00 Test Item Value Reference Range Interpretation Comments UA Color (test code = Yellow *NA*(06/10/16 UA Color) 8:08 PM) [facility] AND [id number] 02:08:00 Test Item Value Reference Range Interpretation Comments UA Turbidity (test code = Clear (06/10/16 8:08 UA Turbidity) PM) [facility] [id number] 02:08:00 Test Item Value Reference Range Interpretation Comments U Preg (test code = U Negative (06/10/16 8:08 Preg) PM) [facility] [id number] 02:08:00 Test Item Value Reference Range Interpretation Comments U Protein (test code = U Protein) 375.4 [facility] [id number] 02:08:00 Test Item Value Reference Range Interpretation Comments U Prot/Creat (test code = U Prot/Creat) 5.4 [facility] [id number] 02:08:00 Test Item Value Reference Range Interpretation Comments U Creatinine (test code = U Creatinine) 69.80 [facility] [id number] 16:53:00 Test Item Value Reference Range Interpretation Comments BNP (test code = BNP) 1135 [facility] CuppleannCARDIAC [id number] 16:53:00 Test Item Value Reference Range Interpretation Comments Troponin-I (test code no gt See_Comment [Auto mated message] The = Troponin-I) system which g enerated this result transmit rohit reference range : <=0.40. The reference r leo was not used to interpr et this result as reji l/abnormal. [facility] [id number] 16:53:00 Test Item Value Reference Range Interpretation Comments BNP (test code = BNP) 1135 [facility] [id number] 16:53:00 Test Item Value Reference Range Interpretation Comments Troponin-I (test code no gt See_Comment [Auto mated message] The = Troponin-I) system which g enerated this result transmit rohit reference range : <=0.40. The reference r leo was not used to interpr et this result as reji l/abnormal. [facility] PetflowCARSysomosAC [id number] 16:53:00 Test Item Value Reference Range Interpretation Comments BNP (test code = BNP) 1135 [facility] NetSpendAC [id number] 16:53:00 Test Item Value Reference Range Interpretation Comments Troponin-I (test code no gt See_Comment [Auto mated message] The = Troponin-I) system which g enerated this result transmit rohit reference range : <=0.40. The reference r leo was not used to interpr et this result as reji l/abnormal. [facility] Cosyforyou2016-12-21 16:53:00 Test Item Value Reference Range Interpretation Comments BNP (test code = BNP) 1135 [facility] Cosyforyou2016-12-21 16:53:00 Test Item Value Reference Range Interpretation Comments Troponin-I (test code no gt See_Comment [Auto mated message] The = Troponin-I) system which g enerated this result transmit rohit reference range : <=0.40. The reference r leo was not used to interpr et this result as reji l/abnormal. [facility] Cosyforyou2016-12-21 16:53:00 Test Item Value Reference Range Interpretation Comments BNP (test code = BNP) 1135 [facility] Cosyforyou2016-12-21 16:53:00 Test Item Value Reference Range Interpretation Comments Troponin-I (test code no gt See_Comment [Auto mated message] The = Troponin-I) system which g enerated this result transmit rohit reference range : <=0.40. The reference r leo was not used to interpr et this result as reji l/abnormal. [facility] GroupFlier [id number] 13:02:00 Test Item Value Reference Range Interpretation Comments Lactic Acid WB (test code = Lactic Acid 0.9 0.5-2.2 WB) [facility] [id number] 13:02:00 Test Item Value Reference Range Interpretation Comments Lactic Acid WB (test code = Lactic Acid 0.9 0.5-2.2 WB) [facility] GroupFlier [id number] 13:02:00 Test Item Value Reference Range Interpretation [...] code = Lactic Acid 0.9 0.5-2.2 WB) [place] [id number] 12:29:44 Test Item Value Reference Range Interpretation Comments Valproic Acid Lvl (test code = Valproic 10 50-100 Acid Lvl) [place] [id number] 12:29:44 Test Item Value Reference Range Interpretation Comments Valproic Acid Lvl (test code = Valproic 10 50-100 Acid Lvl) [place] [id number] 12:29:44 Test Item Value Reference Range Interpretation Comments Valproic Acid Lvl (test code = Valproic 10 50-100 Acid Lvl) [place] [id number] 12:29:44 Test Item Value Reference Range Interpretation Comments Valproic Acid Lvl (test code = Valproic 10 50-100 Acid Lvl) [place] [id number] 12:29:44 Test Item Value Reference Range Interpretation Comments Valproic Acid Lvl (test code = Valproic 10 50-100 Acid Lvl) [place] [id number] 11:21:27 Test Item Value Reference Range Interpretation Comments hCG Tot (test code = hCG Tot) 1 [place] [id number] 11:21:27 Test Item Value Reference Range Interpretation Comments hCG Tot (test code = hCG Tot) 1 [place] [id number] 11:21:27 Test Item Value Reference Range Interpretation Comments hCG Tot (test code = hCG Tot) 1 [place] [id number] 11:21:27 Test Item Value Reference Range Interpretation Comments hCG Tot (test code = hCG Tot) 1 [place] [id number] 11:21:27 Test Item Value Reference Range Interpretation [...] (test code = Lipase Lvl) 81 73-393 [facility] HospitalNcvftekJKPXWYZATJ2506-23-80 11:21:00 Test Item Value Reference Range Interpretation Comments Large Plt (test code = Large Plt) Slight [facility] H[id number] 11:21:00 Test Item Value Reference Range Interpretation Comments Basophils # (test code 0.0 See_Comment [Aut omated message] The = Basophils #) system which generated this result tra nsmitted reference range : <=0.2. The reference r leo was not used to int erpret this result as normal/abnormal . [place] [id number] 11:21:00 Test Item Value Reference Range Interpretation Comments Anisocyte (test code = 1+ *ABN*(06/26/14 5:21 Anisocyte) AM) [facility] H[id number] 11:21:00 Test Item Value Reference Range Interpretation Comments Monocytes # (test code 0.6 See_Comment [Aut omated message] The = Monocytes #) system which generated this result tra nsmitted reference range : <=0.8. The reference r leo was not used to int erpret this result as normal/abnormal . [facility] H[id number] 11:21:00 Test Item Value Reference Range Interpretation Comments Eosinophils # (test code 0.1 See_Comment [A utomated message] The = Eosinophils #) system whic h generated this result tra nsmitted reference range : <=0.5. The reference r leo was not used to int erpret this result as normal/abnormal . [facility] Hospit[id number] 11:21:00 Test Item Value Reference Range Interpretation Comments Lymphocytes # (test code = Lymphocytes 2.5 1.0-5.5 #) [facility] H[id number] 11:21:00 Test Item Value Reference Range Interpretation Comments Segs (test code = Segs) 63.3 45.0-75.0 [facility] H[id number] 11:21:00 Test Item Value Reference Range Interpretation Comments Segs-Bands # (test code = Segs-Bands #) 5.6 1.5-8.1 [facility] H[id number] 11:21:00 Test Item Value Reference Range Interpretation Comments Basophils (test code = 0.0 See_Comment [Aut omated message] The Basophils) system which ge nerated this result tra nsmitted reference range : <=1.0. The reference r leo was not used to int erpret this result as normal/abnormal . [facility] Hospit[id number] 11:21:00 Test Item Value Reference Range Interpretation Comments Eosinophils (test code = 0.9 See_Comment [A utomated message] The Eosinophils) system which ge nerated this result tra nsmitted reference range : <=4.0. The reference r leo was not used to int erpret this result as normal/abnormal . [facility] HospitalJpagadrEGULXACRFN9031-24-79 11:21:00 Test Item Value Reference Range Interpretation Comments Monocytes (test code = Monocytes) 7.0 2.0-12.0 [facility] Hos[id number] 11:21:00 Test Item Value Reference Range Interpretation Comments Lymphocytes (test code = Lymphocytes) 28.8 20.0-40.0 [facility] HospitalFhynyzoWOVPLFXBIK5355-21-03 11:21:00 Test Item Value Reference Range Interpretation Comments WBC (test code = WBC) 8.8 3.7-10.4 [facility] HospitalDwltxfsACFWZXNNCW6972-35-96 11:21:00 Test Item Value Reference Range Interpretation Comments RBC (test code = RBC) 5.19 4.20-5.40 [facility] HospitalEtwtphkOWWICPCYFM2691-28-64 11:21:00 Test Item Value Reference Range Interpretation Comments Hgb (test code = Hgb) 14.4 12.0-16.0 [facility] Ho[id number] 11:21:00 Test Item Value Reference Range Interpretation Comments Hct (test code = Hct) 43.1 36.0-48.0 [facility] Hospit[id number] 11:21:00 Test Item Value Reference Range Interpretation Comments MCV (test code = MCV) 83.1 80.0-98.0 [facility] HospitalMieefbtIYWSOPQMUB5593-19-80 11:21:00 Test Item Value Reference Range Interpretation Comments MCH (test code = MCH) 27.8 pg 27.0-31.0 [facility] HospitalTnxehdfXLTQKORKLM7288-80-12 11:21:00 Test Item Value Reference Range Interpretation Comments RDW (test code = RDW) 13.1 11.5-14.5 [facility] HospitalYcrlhdiPEVGEEWWLH4372-43-33 11:21:00 Test Item Value Reference Range Interpretation Comments MCHC (test code = MCHC) 33.5 32.0-36.0 [facility] HospitalRpgrhfbQWMPWJLTXI6293-70-53 11:21:00 Test Item Value Reference Range Interpretation Comments Platelet (test code = Platelet) 201 133-450 [facility] HospitalZyqbueaDSNDGXXYIT6026-99-70 11:21:00 Test Item Value Reference Range Interpretation [...] (test code = Creatinine 0.8 0.5-1.4 Lvl) [place] [id number] 11:21:00 Test Item Value Reference Range Interpretation [...] (test code = Lipase Lvl) 81 73-393 [facility] HospitalXnnpdmqLJQXFARHFC6084-35-80 11:21:00 Test Item Value Reference Range Interpretation Comments Large Plt (test code = Large Plt) Slight [facility] HospitalScetczxHAMTYZMUTO9664-28-03 11:21:00 Test Item Value Reference Range Interpretation Comments Basophils # (test code 0.0 See_Comment [Aut omated message] The = Basophils #) system which generated this result tra nsmitted reference range : <=0.2. The reference r leo was not used to int erpret this result as normal/abnormal . [facility] HospitalExihwylYWOGUOAFBV3454-01-01 11:21:00 Test Item Value Reference Range Interpretation Comments Anisocyte (test code = 1+ *ABN*(06/26/14 5:21 Anisocyte) AM) [facility] HospitalMfoafpeAVAWKDLJNU0398-98-57 11:21:00 Test Item Value Reference Range Interpretation Comments Monocytes # (test code 0.6 See_Comment [Aut omated message] The = Monocytes #) system which generated this result tra nsmitted reference range : <=0.8. The reference r leo was not used to int erpret this result as normal/abnormal . [facility] HospitalJatebetTPRGTXNGFS5967-80-81 11:21:00 Test Item Value Reference Range Interpretation Comments Eosinophils # (test code 0.1 See_Comment [A utomated message] The = Eosinophils #) system whic h generated this result tra nsmitted reference range : <=0.5. The reference r leo was not used to int erpret this result as normal/abnormal . [facility] HospitalSiepmjbBDTOSJQDKK3149-56-75 11:21:00 Test Item Value Reference Range Interpretation Comments Lymphocytes # (test code = Lymphocytes 2.5 1.0-5.5 #) [facility] HospitalCjdeppkUJIZBOJXPH3776-13-09 11:21:00 Test Item Value Reference Range Interpretation Comments Segs (test code = Segs) 63.3 45.0-75.0 [facility] HospitalBrfewpaNVPMPOPPBK8586-20-92 11:21:00 Test Item Value Reference Range Interpretation Comments Segs-Bands # (test code = Segs-Bands #) 5.6 1.5-8.1 [facility] HospitalKlrqreaAXCWYAXVXY4925-82-37 11:21:00 Test Item Value Reference Range Interpretation Comments Basophils (test code = 0.0 See_Comment [Aut omated message] The Basophils) system which ge nerated this result tra nsmitted reference range : <=1.0. The reference r leo was not used to int erpret this result as normal/abnormal . [facility] HospitalFvohmieTQUBHMTORQ7370-39-84 11:21:00 Test Item Value Reference Range Interpretation Comments Eosinophils (test code = 0.9 See_Comment [A utomated message] The Eosinophils) system which ge nerated this result tra nsmitted reference range : <=4.0. The reference r leo was not used to int erpret this result as normal/abnormal . [facility] HospitalNdfdtlfLYLOUVRFIL4092-48-35 11:21:00 Test Item Value Reference Range Interpretation Comments Monocytes (test code = Monocytes) 7.0 2.0-12.0 [facility]aleAwymmhnPABBYEONRV8200-28-51 11:21:00 Test Item Value Reference Range Interpretation Comments Lymphocytes (test code = Lymphocytes) 28.8 20.0-40.0 [facility] RegionHlatzquSTZWDWRLVA1721-11-02 11:21:00 Test Item Value Reference Range Interpretation Comments WBC (test code = WBC) 8.8 3.7-10.4 [facility] RegionNhwvtimXYBVHZQTUA0541-47-60 11:21:00 Test Item Value Reference Range Interpretation Comments RBC (test code = RBC) 5.19 4.20-5.40 [facility] RegionHhwvnfhDOFTBDOPHY7606-36-35 11:21:00 Test Item Value Reference Range Interpretation Comments Hgb (test code = Hgb) 14.4 12.0-16.0 [facility] RegionPdubaieXRBRNZFOPZ0062-10-71 11:21:00 Test Item Value Reference Range Interpretation Comments Hct (test code = Hct) 43.1 36.0-48.0 [facility] RegionSainomvSBXDQQLNDP2983-82-27 11:21:00 Test Item Value Reference Range Interpretation Comments MCV (test code = MCV) 83.1 80.0-98.0 [facility] RegionLpgeyrqVZWIPNYVQK3522-31-66 11:21:00 Test Item Value Reference Range Interpretation Comments MCH (test code = MCH) 27.8 pg 27.0-31.0 [facility] RegionYxhyvihBHBTVLRBSH3555-27-86 11:21:00 Test Item Value Reference Range Interpretation Comments RDW (test code = RDW) 13.1 11.5-14.5 [facility] RegionWcqorloDLGCFEZVNZ9167-92-68 11:21:00 Test Item Value Reference Range Interpretation Comments MCHC (test code = MCHC) 33.5 32.0-36.0 [facility] RegionNepclnmEIQGANCVND5517-10-41 11:21:00 Test Item Value Reference Range Interpretation Comments Platelet (test code = Platelet) 201 133-450 [facility]aleWqmwmhmLYSRTNRKFS8316-36-65 11:21:00 Test Item Value Reference Range Interpretation [...] (test code = Alk Phos) 59 39-136 [place] [id number] 11:21:00 Test Item Value Reference Range Interpretation [...] (test code = Lipase Lvl) 81 73-393 [facility] HospitalUwayuujBCKWKJRPDW8233-52-22 11:21:00 Test Item Value Reference Range Interpretation Comments Large Plt (test code = Large Plt) Slight [facility] HospitalAonxdwtIHQAVHKURE3013-84-58 11:21:00 Test Item Value Reference Range Interpretation Comments Basophils # (test code 0.0 See_Comment [Aut omated message] The = Basophils #) system which generated this result tra nsmitted reference range : <=0.2. The reference r leo was not used to int erpret this result as normal/abnormal . [facility] HospitalKuzihqyFNSYXCCLIM1280-82-36 11:21:00 Test Item Value Reference Range Interpretation Comments Anisocyte (test code = 1+ *ABN*(06/26/14 5:21 Anisocyte) AM) [facility] HospitalJcaslmvRBVGKVCIPU3312-45-52 11:21:00 Test Item Value Reference Range Interpretation Comments Monocytes # (test code 0.6 See_Comment [Aut omated message] The = Monocytes #) system which generated this result tra nsmitted reference range : <=0.8. The reference r leo was not used to int erpret this result as normal/abnormal . [facility] HospitalEhvazouTEFYTFQUWE4317-94-84 11:21:00 Test Item Value Reference Range Interpretation Comments Eosinophils # (test code 0.1 See_Comment [A utomated message] The = Eosinophils #) system whic h generated this result tra nsmitted reference range : <=0.5. The reference r leo was not used to int erpret this result as normal/abnormal . [facility] HospitalQcheharHMBNZKXKOW6294-59-59 11:21:00 Test Item Value Reference Range Interpretation Comments Lymphocytes # (test code = Lymphocytes 2.5 1.0-5.5 #) [facility] HospitalBdzkremQBILGYKKUP7106-37-62 11:21:00 Test Item Value Reference Range Interpretation Comments Segs (test code = Segs) 63.3 45.0-75.0 [facility] HospitalVjnvjipMOIZTJJUIF3097-45-30 11:21:00 Test Item Value Reference Range Interpretation Comments Segs-Bands # (test code = Segs-Bands #) 5.6 1.5-8.1 [facility] HospitalSmywchgBWOTAZMHRI3422-72-70 11:21:00 Test Item Value Reference Range Interpretation Comments Basophils (test code = 0.0 See_Comment [Aut omated message] The Basophils) system which ge nerated this result tra nsmitted reference range : <=1.0. The reference r leo was not used to int erpret this result as normal/abnormal . [facility] HospitalJcfvcbiRQBGDLYVQM6304-80-27 11:21:00 Test Item Value Reference Range Interpretation Comments Eosinophils (test code = 0.9 See_Comment [A utomated message] The Eosinophils) system which ge nerated this result tra nsmitted reference range : <=4.0. The reference r leo was not used to int erpret this result as normal/abnormal . [facility] HospitalXhdeebmVAOTOQPZGO3434-47-42 11:21:00 Test Item Value Reference Range Interpretation Comments Monocytes (test code = Monocytes) 7.0 2.0-12.0 [facility] HospitalSewqelkFVVIKHXPWL2820-69-74 11:21:00 Test Item Value Reference Range Interpretation Comments Lymphocytes (test code = Lymphocytes) 28.8 20.0-40.0 [facility] HospitalEeuuzlkPYTWKMNURJ7868-24-33 11:21:00 Test Item Value Reference Range Interpretation Comments WBC (test code = WBC) 8.8 3.7-10.4 [facility] HospitalBggabvfQZNBUEOCBG4227-67-63 11:21:00 Test Item Value Reference Range Interpretation Comments RBC (test code = RBC) 5.19 4.20-5.40 [facility] HospitalDrjahlyWJUEKWDYKE9117-47-53 11:21:00 Test Item Value Reference Range Interpretation Comments Hgb (test code = Hgb) 14.4 12.0-16.0 [facility] HospitalRzqfkcbXUPZLERNXE5098-72-16 11:21:00 Test Item Value Reference Range Interpretation Comments Hct (test code = Hct) 43.1 36.0-48.0 [facility] HospitalWbcahlhYCRIEGMGGL7295-08-94 11:21:00 Test Item Value Reference Range Interpretation Comments MCV (test code = MCV) 83.1 80.0-98.0 [facility] HospitalOsyjxarRLZHLKDYDL6860-83-12 11:21:00 Test Item Value Reference Range Interpretation Comments MCH (test code = MCH) 27.8 pg 27.0-31.0 [facility] HospitalBlcvizoFZBVSWKRZE2381-33-09 11:21:00 Test Item Value Reference Range Interpretation Comments RDW (test code = RDW) 13.1 11.5-14.5 [facility] HospitalQsnkmxnNUKGAUFXOU8078-53-03 11:21:00 Test Item Value Reference Range Interpretation Comments MCHC (test code = MCHC) 33.5 32.0-36.0 [facility] HospitalPlhmmesCBWEWWSQAK6899-26-95 11:21:00 Test Item Value Reference Range Interpretation Comments Platelet (test code = Platelet) 201 133-450 [facility] HospitalNdgvxqeJRTCKQRWYI9567-08-77 11:21:00 Test Item Value Reference Range Interpretation [...] (test code = Bili Total) 0.6 0.2-1.3 [place] 691095-01-06 11:21:00 Test Item Value Reference Range Interpretation [...] (test code = Lipase Lvl) 81 73-393 [facility] HospitalSxaekhdVPZITCSOXY9531-83-41 11:21:00 Test Item Value Reference Range Interpretation Comments Large Plt (test code = Large Plt) Slight [facility] HospitalAqtarnjTDYJZSWXII8303-44-83 11:21:00 Test Item Value Reference Range Interpretation Comments Basophils # (test code 0.0 See_Comment [Aut omated message] The = Basophils #) system which generated this result tra nsmitted reference range : <=0.2. The reference r leo was not used to int erpret this result as normal/abnormal . [facility] HospitalKowaqdgODOVCZUJXU8242-18-81 11:21:00 Test Item Value Reference Range Interpretation Comments Anisocyte (test code = 1+ *ABN*(06/26/14 5:21 Anisocyte) AM) [facility] HospitalLrlbltgPLUHDQCLKL6764-64-04 11:21:00 Test Item Value Reference Range Interpretation Comments Monocytes # (test code 0.6 See_Comment [Aut omated message] The = Monocytes #) system which generated this result tra nsmitted reference range : <=0.8. The reference r leo was not used to int erpret this result as normal/abnormal . [facility] HospitalJavptowGCARLEOSFG9633-92-13 11:21:00 Test Item Value Reference Range Interpretation Comments Eosinophils # (test code 0.1 See_Comment [A utomated message] The = Eosinophils #) system whic h generated this result tra nsmitted reference range : <=0.5. The reference r leo was not used to int erpret this result as normal/abnormal . [facility] [facility]IcebnveUVQMXEXYJO4605-17-53 11:21:00 Test Item Value Reference Range Interpretation Comments Lymphocytes # (test code = Lymphocytes 2.5 1.0-5.5 #) [facility]QoryupmFLNPJUIDXA8436-24-81 11:21:00 Test Item Value Reference Range Interpretation Comments Segs (test code = Segs) 63.3 45.0-75.0 [facility] HospitalMvkukmqILLNVLQTBA2788-13-03 11:21:00 Test Item Value Reference Range Interpretation Comments Segs-Bands # (test code = Segs-Bands #) 5.6 1.5-8.1 [facility] HospitalIoovjbmYKGPMAUGHY0408-43-81 11:21:00 Test Item Value Reference Range Interpretation Comments Basophils (test code = 0.0 See_Comment [Aut omated message] The Basophils) system which ge nerated this result tra nsmitted reference range : <=1.0. The reference r leo was not used to int erpret this result as normal/abnormal . [facility] HospitalGajaxfyGRJJNHNTCK7394-59-24 11:21:00 Test Item Value Reference Range Interpretation Comments Eosinophils (test code = 0.9 See_Comment [A utomated message] The Eosinophils) system which ge nerated this result tra nsmitted reference range : <=4.0. The reference r leo was not used to int erpret this result as normal/abnormal . [facility] HospitalPddhxtaVUIDYAPQAT9738-81-71 11:21:00 Test Item Value Reference Range Interpretation Comments Monocytes (test code = Monocytes) 7.0 2.0-12.0 [facility] HospitalDgzaqxmWGZSVPJARA8931-07-37 11:21:00 Test Item Value Reference Range Interpretation Comments Lymphocytes (test code = Lymphocytes) 28.8 20.0-40.0 [facility] HospitalUfsncvtKZBNESEPHH3056-33-44 11:21:00 Test Item Value Reference Range Interpretation Comments WBC (test code = WBC) 8.8 3.7-10.4 [facility] HospitalDwhpgvrNCZNYOASAP3480-19-67 11:21:00 Test Item Value Reference Range Interpretation Comments RBC (test code = RBC) 5.19 4.20-5.40 [facility] HospitalCzpdlzwHLGGTIIZPE2998-20-76 11:21:00 Test Item Value Reference Range Interpretation Comments Hgb (test code = Hgb) 14.4 12.0-16.0 [facility] HospitalXwstxcuMRULVBLFKE2354-83-84 11:21:00 Test Item Value Reference Range Interpretation Comments Hct (test code = Hct) 43.1 36.0-48.0 [facility] HospitalIewrindOJYFPGGROG1688-11-18 11:21:00 Test Item Value Reference Range Interpretation Comments MCV (test code = MCV) 83.1 80.0-98.0 [facility] HospitalVrsklvlQSOYKCRVMK4888-04-40 11:21:00 Test Item Value Reference Range Interpretation Comments MCH (test code = MCH) 27.8 pg 27.0-31.0 [facility] HospitalNfptdfpCDEGRSKQXA0446-41-60 11:21:00 Test Item Value Reference Range Interpretation Comments RDW (test code = RDW) 13.1 11.5-14.5 [facility] HospitalXcjbupxDIOAWJUVGS2507-65-77 11:21:00 Test Item Value Reference Range Interpretation Comments MCHC (test code = MCHC) 33.5 32.0-36.0 [facility] HospitalZtwkggxMZEJYDFGWK4960-93-08 11:21:00 Test Item Value Reference Range Interpretation Comments Platelet (test code = Platelet) 201 133-450 [facility] HospitalFjbnjyxQPPLCVDTVL9833-60-78 11:21:00 Test Item Value Reference Range Interpretation [...] BUN (test code = BUN) 11 7-22 [place] [id number] 11:21:00 Test Item Value Reference Range Interpretation [...] (test code = Chloride Lvl) 94 95-109 [place] 691095-01-06 11:21:00 Test Item Value Reference Range Interpretation [...] (test code = Lipase Lvl) 81 73-393 [facility] HospitalYptofjsLMETMBUATV2900-29-38 11:21:00 Test Item Value Reference Range Interpretation Comments Large Plt (test code = Large Plt) Slight [facility] HospitalPverfnwEDBAXZZLUT5040-32-85 11:21:00 Test Item Value Reference Range Interpretation Comments Basophils # (test code 0.0 See_Comment [Aut omated message] The = Basophils #) system which generated this result tra nsmitted reference range : <=0.2. The reference r leo was not used to int erpret this result as normal/abnormal . [facility] HospitalQwlcgcpCUUSEDHUVV9723-48-61 11:21:00 Test Item Value Reference Range Interpretation Comments Anisocyte (test code = 1+ *ABN*(06/26/14 5:21 Anisocyte) AM) [facility] HospitalZtzecgdCIGDQLVQFL8016-21-48 11:21:00 Test Item Value Reference Range Interpretation Comments Monocytes # (test code 0.6 See_Comment [Aut omated message] The = Monocytes #) system which generated this result tra nsmitted reference range : <=0.8. The reference r leo was not used to int erpret this result as normal/abnormal . [facility] HospitalXurfkfqDAGLISHTRI8097-74-95 11:21:00 Test Item Value Reference Range Interpretation Comments Eosinophils # (test code 0.1 See_Comment [A utomated message] The = Eosinophils #) system whic h generated this result tra nsmitted reference range : <=0.5. The reference r leo was not used to int erpret this result as normal/abnormal . [facility] HospitalXdiyplmKBNPNGCNGY3144-31-96 11:21:00 Test Item Value Reference Range Interpretation Comments Lymphocytes # (test code = Lymphocytes 2.5 1.0-5.5 #) [facility] HospitalPgelhhlAIOAVVWRKO7021-67-48 11:21:00 Test Item Value Reference Range Interpretation Comments Segs (test code = Segs) 63.3 45.0-75.0 [facility] HospitalHeegecoFKFBTPUXCP1173-47-24 11:21:00 Test Item Value Reference Range Interpretation Comments Segs-Bands # (test code = Segs-Bands #) 5.6 1.5-8.1 [facility] HospitalLrtkvouBAHKDAJUAD2260-87-14 11:21:00 Test Item Value Reference Range Interpretation Comments Basophils (test code = 0.0 See_Comment [Aut omated message] The Basophils) system which ge nerated this result tra nsmitted reference range : <=1.0. The reference r leo was not used to int erpret this result as normal/abnormal . [facility] HospitalUvfxfmhVKSWSGNSYE9110-05-85 11:21:00 Test Item Value Reference Range Interpretation Comments Eosinophils (test code = 0.9 See_Comment [A utomated message] The Eosinophils) system which ge nerated this result tra nsmitted reference range : <=4.0. The reference r leo was not used to int erpret this result as normal/abnormal . [facility] HospitalRqirnulXOXXKDBZLC4741-41-69 11:21:00 Test Item Value Reference Range Interpretation Comments Monocytes (test code = Monocytes) 7.0 2.0-12.0 [facility] HospitalIhjsdnoLMTHXOCYAO2256-84-83 11:21:00 Test Item Value Reference Range Interpretation Comments Lymphocytes (test code = Lymphocytes) 28.8 20.0-40.0 [facility] HospitalXmpfyvbYJAWSSNYPG2573-65-43 11:21:00 Test Item Value Reference Range Interpretation Comments WBC (test code = WBC) 8.8 3.7-10.4 [facility] HospitalCishwhfNGIQTXWMGF9465-38-23 11:21:00 Test Item Value Reference Range Interpretation Comments RBC (test code = RBC) 5.19 4.20-5.40 [facility] HospitalMjjuwxvOJKVKFFWRM5713-68-07 11:21:00 Test Item Value Reference Range Interpretation Comments Hgb (test code = Hgb) 14.4 12.0-16.0 [facility] HospitalFhogjuhORYLAOYXIO3649-08-99 11:21:00 Test Item Value Reference Range Interpretation Comments Hct (test code = Hct) 43.1 36.0-48.0 [facility] HospitalXdsofscTPSVPVLGDO2457-93-94 11:21:00 Test Item Value Reference Range Interpretation Comments MCV (test code = MCV) 83.1 80.0-98.0 [facility] HospitalIcjptgxTALJXDZAYI9629-23-82 11:21:00 Test Item Value Reference Range Interpretation Comments MCH (test code = MCH) 27.8 pg 27.0-31.0 [facility] HospitalNkndiijULVCMHQPRO9566-74-41 11:21:00 Test Item Value Reference Range Interpretation Comments RDW (test code = RDW) 13.1 11.5-14.5 [facility] HospitalHbxkopnISKVZCBELD4391-47-22 11:21:00 Test Item Value Reference Range Interpretation Comments MCHC (test code = MCHC) 33.5 32.0-36.0 [facility] HospitalWaymmdcKHILIJHMDD1806-87-56 11:21:00 Test Item Value Reference Range Interpretation Comments Platelet (test code = Platelet) 201 133-450 [facility] HospitalLrjqpcdWHNYLCGGAN2700-26-74 11:21:00 Test Item Value Reference Range Interpretation Comments MPV (test code = MPV) 10.4 7.4-10.4 [facility]HhqsedwMVOYDSUCYD8684-70-76 04:48:55 Test Item Value Reference Range Interpretation Comments UA [place] Yeast (test code = UA Occasional /HPF A [place] Yeast) [facility]aIesszsuULWNHPSBWA3856-55-98 04:48:55 Test Item Value Reference Range Interpretation Comments UA Mucus (test code = UA Mucus) Few /LPF N [facility]aJztusyfDJPARDSGHY4160-71-02 04:48:55 Test Item Value Reference Range Interpretation Comments UA Sq Epi (test code = UA Sq Moderate /LPF A Epi) [facility]XdekgnsCCUMPEERCJ8411-14-10 04:48:55 Test Item Value Reference Range Interpretation Comments Micro? (test code = Performed (04/14/2013 N Micro?) 23:48:55) [facility]aOkhxopvMTOCHUNIDH6690-05-91 04:48:55 Test Item Value Reference Range Interpretation Comments UA WBC (test code = UA WBC) 0-2 /HPF N [facility]aTaiguxmHTSWLSARDO5612-99-36 04:48:55 Test Item Value Reference Range Interpretation Comments UA Bacteria (test code = UA Occasional /HPF N Bacteria) [facility]aUjryczbCCLZHSXIIF4618-14-10 04:48:55 Test Item Value Reference Range Interpretation Comments UA Glucose (test code = UA Glucose) 500 mg/dL A [facility]aKylrlpwQVKWHZTDLO9505-21-05 04:48:55 Test Item Value Reference Range Interpretation Comments UA Bili (test code = Negative *NA*(04/14/2013 UA Bili) 23:48:55) [facility]aCvwndhaMATUDSNYTZ0113-60-61 04:48:55 Test Item Value Reference Range Interpretation Comments UA Ketones (test code = Trace A UA Ketones) *ABN*(04/14/2013 23:48:55) [facility]aWryaxsyGWLOKCXQRK5900-58-06 04:48:55 Test Item Value Reference Range Interpretation Comments UA Blood (test code = Negative (04/14/2013 N UA Blood) 23:48:55) [facility]aNcbncmxZXAHPOMEGW0639-42-35 04:48:55 Test Item Value Reference Range Interpretation Comments UA Urobilinogen (test code = UA 0.2 0.1-1.0 N Urobilinogen) [facility]aJwmerppALVAUYHCGS3942-88-08 04:48:55 Test Item Value Reference Range Interpretation Comments UA Nitrite (test code Negative (04/14/2013 N = UA Nitrite) 23:48:55) [facility]aQdwxmqdTSOQSJFXBF0832-14-32 04:48:55 Test Item Value Reference Range Interpretation Comments UA Leuk Est (test Negative (04/14/2013 N code = UA Leuk Est) 23:48:55) [facility]aQlbgniwDZBQQTKZUD5959-11-97 04:48:55 Test Item Value Reference Range Interpretation Comments UA Turbidity (test code = Clear (04/14/2013 N UA Turbidity) 23:48:55) [facility]XdateyuHINHBRILVJ1239-83-65 04:48:55 Test Item Value Reference Range Interpretation Comments UA Color (test code = Yellow *NA*(04/14/2013 UA Color) 23:48:55) [facility]XketglfYPZFJMEKZF1144-00-85 04:48:55 Test Item Value Reference Range Interpretation Comments UA pH (test code = UA pH) 7.0 1 5.0-8.0 N [facility]aReeajcgWJKGLTQXQZ1145-12-06 04:48:55 Test Item Value Reference Range Interpretation Comments UA Spec Grav (test code = UA Spec 1.025 1 N Grav) [facility]aSnnetmqYZNZRTQDIV2483-52-38 04:48:55 Test Item Value Reference Range Interpretation Comments UA Protein (test code = Trace A UA Protein) *ABN*(04/14/2013 23:48:55) [facility]aWxavzacAGQOWJYLDL3528-95-56 04:48:55 Test Item Value Reference Range Interpretation Comments UA [place] Yeast (test code = UA Occasional /HPF A [place] Yeast) [facility]aWczgyglXJJBRCXYGL5218-37-62 04:48:55 Test Item Value Reference Range Interpretation Comments UA Mucus (test code = UA Mucus) Few /LPF N [facility]aEmsriydKXCDOKFEEB9966-42-53 04:48:55 Test Item Value Reference Range Interpretation Comments UA Sq Epi (test code = UA Sq Moderate /LPF A Epi) [facility]aLcwwvrdVIECZBROBQ8276-43-42 04:48:55 Test Item Value Reference Range Interpretation Comments Micro? (test code = Performed (04/14/2013 N Micro?) 23:48:55) [facility]aZsljonpFPCHWZYKQR4205-36-36 04:48:55 Test Item Value Reference Range Interpretation Comments UA WBC (test code = UA WBC) 0-2 /HPF N [facility]aAevlxfvVVOKUGORYI8297-17-85 04:48:55 Test Item Value Reference Range Interpretation Comments UA Bacteria (test code = UA Occasional /HPF N Bacteria) [facility]aEplhyxyWUJBMIKHZM3359-95-77 04:48:55 Test Item Value Reference Range Interpretation Comments UA Glucose (test code = UA Glucose) 500 mg/dL A [facility]aMngxtkjCFPJIZKZWR1463-50-39 04:48:55 Test Item Value Reference Range Interpretation Comments UA Bili (test code = Negative *NA*(04/14/2013 UA Bili) 23:48:55) [facility]aYaekfxtWLZGETTYWI3810-80-97 04:48:55 Test Item Value Reference Range Interpretation Comments UA Ketones (test code = Trace A UA Ketones) *ABN*(04/14/2013 23:48:55) [facility]aVzarplcJPESITBHBY2135-13-94 04:48:55 Test Item Value Reference Range Interpretation Comments UA Blood (test code = Negative (04/14/2013 N UA Blood) 23:48:55) [facility]aXteysauZXRDVXMFWK9831-36-85 04:48:55 Test Item Value Reference Range Interpretation Comments UA Urobilinogen (test code = UA 0.2 0.1-1.0 N Urobilinogen) [facility]aVjyysisGHNXZWPUQI3671-22-28 04:48:55 Test Item Value Reference Range Interpretation Comments UA Nitrite (test code Negative (04/14/2013 N = UA Nitrite) 23:48:55) [facility]aBnqagvmJKKFGIHEAN0954-25-07 04:48:55 Test Item Value Reference Range Interpretation Comments UA Leuk Est (test Negative (04/14/2013 N code = UA Leuk Est) 23:48:55) [facility]aSoascljZBVQSLNKDJ6213-29-68 04:48:55 Test Item Value Reference Range Interpretation Comments UA Turbidity (test code = Clear (04/14/2013 N UA Turbidity) 23:48:55) [facility]aYoxzacaGHYAJRYPJM4989-23-57 04:48:55 Test Item Value Reference Range Interpretation Comments UA Color (test code = Yellow *NA*(04/14/2013 UA Color) 23:48:55) [facility]aAcosnwtFKIGCLHTXU6691-71-82 04:48:55 Test Item Value Reference Range Interpretation Comments UA pH (test code = UA pH) 7.0 1 5.0-8.0 N [facility]aTdspbcqLWNUDQPSPH3029-19-17 04:48:55 Test Item Value Reference Range Interpretation Comments UA Spec Grav (test code = UA Spec 1.025 1 N Grav) [facility]aMoslpazGUVLHAPTJU1173-80-37 04:48:55 Test Item Value Reference Range Interpretation Comments UA Protein (test code = Trace A UA Protein) *ABN*(04/14/2013 23:48:55) [facility]aTuikeppJJTBUWBVAM6096-75-68 04:48:55 Test Item Value Reference Range Interpretation Comments UA [place] Yeast (test code = UA Occasional /HPF A [place] Yeast) [facility]aUkctfmvGBZITAGWHT6071-15-77 04:48:55 Test Item Value Reference Range Interpretation Comments UA Mucus (test code = UA Mucus) Few /LPF N [facility]aEbgptxdCMROPBNSTW2657-55-53 04:48:55 Test Item Value Reference Range Interpretation Comments UA Sq Epi (test code = UA Sq Moderate /LPF A Epi) [facility]aCrfjkrdAAINZUCXYY2604-82-45 04:48:55 Test Item Value Reference Range Interpretation Comments Micro? (test code = Performed (04/14/2013 N Micro?) 23:48:55) [facility]aVurqnpbGNTZQAOYPA8277-89-70 04:48:55 Test Item Value Reference Range Interpretation Comments UA WBC (test code = UA WBC) 0-2 /HPF N [facility]aWpkxhexVTBFVFNOVZ8005-34-08 04:48:55 Test Item Value Reference Range Interpretation Comments UA Bacteria (test code = UA Occasional /HPF N Bacteria) [facility]aZnabvdfDBBPMZYNPH5297-16-86 04:48:55 Test Item Value Reference Range Interpretation Comments UA Glucose (test code = UA Glucose) 500 mg/dL A [facility]aGffolazATKSTEOUPZ1600-09-12 04:48:55 Test Item Value Reference Range Interpretation Comments UA Bili (test code = Negative *NA*(04/14/2013 UA Bili) 23:48:55) [facility]aAvrrkrdUFLXVKLOJW3998-25-78 04:48:55 Test Item Value Reference Range Interpretation Comments UA Ketones (test code = Trace A UA Ketones) *ABN*(04/14/2013 23:48:55) [facility]aOioadhhNQKQDJBVXC3983-96-01 04:48:55 Test Item Value Reference Range Interpretation Comments UA Blood (test code = Negative (04/14/2013 N UA Blood) 23:48:55) [facility]aVucshwwEQKKIGYSJJ9211-31-71 04:48:55 Test Item Value Reference Range Interpretation Comments UA Urobilinogen (test code = UA 0.2 0.1-1.0 N Urobilinogen) [facility]aJobtmleVAPQQNPUDQ3034-86-39 04:48:55 Test Item Value Reference Range Interpretation Comments UA Nitrite (test code Negative (04/14/2013 N = UA Nitrite) 23:48:55) [facility]aShagnkwSOFEBPKEUI9321-30-79 04:48:55 Test Item Value Reference Range Interpretation Comments UA Leuk Est (test Negative (04/14/2013 N code = UA Leuk Est) 23:48:55) [facility]aBpuxotrARSTYHYNDV6303-87-68 04:48:55 Test Item Value Reference Range Interpretation Comments UA Turbidity (test code = Clear (04/14/2013 N UA Turbidity) 23:48:55) [facility]aVdsmrvtVNGZHYEFMM5415-77-83 04:48:55 Test Item Value Reference Range Interpretation Comments UA Color (test code = Yellow *NA*(04/14/2013 UA Color) 23:48:55) [facility]aSmvyzhbXOXTZHOWVI0472-74-16 04:48:55 Test Item Value Reference Range Interpretation Comments UA pH (test code = UA pH) 7.0 1 5.0-8.0 N [facility]aKguxilfXLOOWJIQET8712-63-45 04:48:55 Test Item Value Reference Range Interpretation Comments UA Spec Grav (test code = UA Spec 1.025 1 N Grav) [facility]aHbgxoezORPUSHGNKP2075-07-79 04:48:55 Test Item Value Reference Range Interpretation Comments UA Protein (test code = Trace A UA Protein) *ABN*(04/14/2013 23:48:55) [facility]aSarjdflHZCJYISHAY5241-04-30 04:48:55 Test Item Value Reference Range Interpretation Comments UA [place] Yeast (test code = UA Occasional /HPF A [place] Yeast) [facility]aFlpkjpwSOKALAKLYG7346-56-91 04:48:55 Test Item Value Reference Range Interpretation Comments UA Mucus (test code = UA Mucus) Few /LPF N [facility]aMwrdyjqBOPXMRLHUH3115-28-36 04:48:55 Test Item Value Reference Range Interpretation Comments UA Sq Epi (test code = UA Sq Moderate /LPF A Epi) [facility]aLzdyjbtUJPJBPLSHG5063-63-50 04:48:55 Test Item Value Reference Range Interpretation Comments Micro? (test code = Performed (04/14/2013 N Micro?) 23:48:55) [facility]aThgitjbRVUFSDXRCI1134-42-48 04:48:55 Test Item Value Reference Range Interpretation Comments UA WBC (test code = UA WBC) 0-2 /HPF N [facility]aJtkkoodBOPXJAUSVU1739-86-11 04:48:55 Test Item Value Reference Range Interpretation Comments UA Bacteria (test code = UA Occasional /HPF N Bacteria) [facility]aMxtsvseBFOFVZUNMP9140-24-37 04:48:55 Test Item Value Reference Range Interpretation Comments UA Glucose (test code = UA Glucose) 500 mg/dL A [facility]aFtkqfgrNRZJVCVKSO8678-89-40 04:48:55 Test Item Value Reference Range Interpretation Comments UA Bili (test code = Negative *NA*(04/14/2013 UA Bili) 23:48:55) [facility]aPkjkdvoYDQBRPLFJI2331-61-61 04:48:55 Test Item Value Reference Range Interpretation Comments UA Ketones (test code = Trace A UA Ketones) *ABN*(04/14/2013 23:48:55) [facility]aEdgouigLNCURPMIJT6442-52-00 04:48:55 Test Item Value Reference Range Interpretation Comments UA Blood (test code = Negative (04/14/2013 N UA Blood) 23:48:55) [facility]aYdcmwsiVVKYEDKPRW7884-65-05 04:48:55 Test Item Value Reference Range Interpretation Comments UA Urobilinogen (test code = UA 0.2 0.1-1.0 N Urobilinogen) [facility]aQszxnqgCYWUVXZTOJ6165-88-38 04:48:55 Test Item Value Reference Range Interpretation Comments UA Nitrite (test code Negative (04/14/2013 N = UA Nitrite) 23:48:55) [facility]aJpmtnvzLELPTHQGXB5623-07-48 04:48:55 Test Item Value Reference Range Interpretation Comments UA Leuk Est (test Negative (04/14/2013 N code = UA Leuk Est) 23:48:55) [facility]aNfeiekjAXJHRSXFRE1028-09-09 04:48:55 Test Item Value Reference Range Interpretation Comments UA Turbidity (test code = Clear (04/14/2013 N UA Turbidity) 23:48:55) [facility]aWagvoyuBARBYNQJJH5682-32-11 04:48:55 Test Item Value Reference Range Interpretation Comments UA Color (test code = Yellow *NA*(04/14/2013 UA Color) 23:48:55) [facility]aKytrtueEXBWQMQBHQ9917-19-47 04:48:55 Test Item Value Reference Range Interpretation Comments UA pH (test code = UA pH) 7.0 1 5.0-8.0 N [facility]aCxvvnryUPOENSFGWV4988-23-87 04:48:55 Test Item Value Reference Range Interpretation Comments UA Spec Grav (test code = UA Spec 1.025 1 N Grav) [facility]aIogxfvjRZMXGTWTDA3613-70-82 04:48:55 Test Item Value Reference Range Interpretation Comments UA Protein (test code = Trace A UA Protein) *ABN*(04/14/2013 23:48:55) [facility]aNhnguonXFVWSWUKYX7064-70-41 04:48:55 Test Item Value Reference Range Interpretation Comments UA [place] Yeast (test code = UA Occasional /HPF A [place] Yeast) [facility]aHbmxyxpBEFZUTASOF6756-64-52 04:48:55 Test Item Value Reference Range Interpretation Comments UA Mucus (test code = UA Mucus) Few /LPF N [facility]aOypnfogJNCXZGPSQR9294-77-53 04:48:55 Test Item Value Reference Range Interpretation Comments UA Sq Epi (test code = UA Sq Moderate /LPF A Epi) [facility]aWkyrpbsIGIYNQCSND9884-26-59 04:48:55 Test Item Value Reference Range Interpretation Comments Micro? (test code = Performed (04/14/2013 N Micro?) 23:48:55) [facility]aXvhuzixODSZXLJRYT5327-33-33 04:48:55 Test Item Value Reference Range Interpretation Comments UA WBC (test code = UA WBC) 0-2 /HPF N [facility]aRablmqcIHVVGTAZNE2667-06-41 04:48:55 Test Item Value Reference Range Interpretation Comments UA Bacteria (test code = UA Occasional /HPF N Bacteria) [facility]aEjdvtuvWQGTRJNWXT8647-52-23 04:48:55 Test Item Value Reference Range Interpretation Comments UA Glucose (test code = UA Glucose) 500 mg/dL A [facility]aGvnkszvXEUYVNCKXW7842-54-30 04:48:55 Test Item Value Reference Range Interpretation Comments UA Bili (test code = Negative *NA*(04/14/2013 UA Bili) 23:48:55) [facility]aTwxsuvaAHGNKYPBEJ0773-18-62 04:48:55 Test Item Value Reference Range Interpretation Comments UA Ketones (test code = Trace A UA Ketones) *ABN*(04/14/2013 23:48:55) [facility]aPmepaijTVGOTSPIUF4385-96-14 04:48:55 Test Item Value Reference Range Interpretation Comments UA Blood (test code = Negative (04/14/2013 N UA Blood) 23:48:55) [facility]aZnmnxhsLKBCLYFQAI4971-65-42 04:48:55 Test Item Value Reference Range Interpretation Comments UA Urobilinogen (test code = UA 0.2 0.1-1.0 N Urobilinogen) [facility]aEffqmxjCZBDQWHSGL2274-68-78 04:48:55 Test Item Value Reference Range Interpretation Comments UA Nitrite (test code Negative (04/14/2013 N = UA Nitrite) 23:48:55) [facility]aHamowffSKXHWQYSDR6071-81-52 04:48:55 Test Item Value Reference Range Interpretation Comments UA Leuk Est (test Negative (04/14/2013 N code = UA Leuk Est) 23:48:55) [facility]aSumkjjsPBTDLXGLNN7081-65-05 04:48:55 Test Item Value Reference Range Interpretation Comments UA Turbidity (test code = Clear (04/14/2013 N UA Turbidity) 23:48:55) [facility]aPsrtytzTTJPIEFVFI4370-81-70 04:48:55 Test Item Value Reference Range Interpretation Comments UA Color (test code = Yellow *NA*(04/14/2013 UA Color) 23:48:55) [facility]aRoupmhbYBTEHSUKNS7191-80-10 04:48:55 Test Item Value Reference Range Interpretation Comments UA pH (test code = UA pH) 7.0 1 5.0-8.0 N [facility]aVibvfsoGCNMWFPOAL8197-92-78 04:48:55 Test Item Value Reference Range Interpretation Comments UA Spec Grav (test code = UA Spec 1.025 1 N Grav) [facility]aLbqwtjxUSPPSWQCDD6557-94-59 04:48:55 Test Item Value Reference Range Interpretation Comments UA Protein (test code = Trace A UA Protein) *ABN*(04/14/2013 23:48:55) [facility] AllianceZaouoswOZXZVKZIZ9874-41-57 04:28:00 Test Item Value Reference Range Interpretation Comments S Preg (test code = S Negative *NA*(04/14/2013 Preg) 23:28:00) [facility] AlliancePhrlypyKQACJLPDL5544-73-95 04:28:00 Test Item Value Reference Range Interpretation Comments Lipase Lvl (test code = Lipase Lvl) 233 73-393 N [facility] AllianceGtvcwrvHQFBWXIYB3816-24-58 04:28:00 Test Item Value Reference Range Interpretation Comments Globulin (test code = Globulin) 4.1 2.0-4.0 H [facility] AllianceZsbzmynTOJIVAUAF1994-95-07 04:28:00 Test Item Value Reference Range Interpretation Comments AGAP (test code = AGAP) 10.5 10.0-20.0 N [facility] AllianceJkziomaVRQFLSKWB4602-16-84 04:28:00 Test Item Value Reference Range Interpretation Comments B/C Ratio (test code = B/C Ratio) 6 6-25 N [facility] AllianceVibffwoDHMPIMITT5716-88-93 04:28:00 Test Item Value Reference Range Interpretation Comments A/G Ratio (test code = A/G Ratio) 0.7 0.7-1.6 N [facility] AllianceMprwoysQIBAWTCQW5375-59-58 04:28:00 Test Item Value Reference Range Interpretation Comments eGFR (test code = eGFR) 130 [facility] AllianceHkavuobKCTJSKDZP3739-63-32 04:28:00 Test Item Value Reference Range Interpretation Comments Albumin Lvl (test code = Albumin Lvl) 2.9 3.5-5.0 L [facility] AllianceYbuorowXKGZNDLYX3807-29-88 04:28:00 Test Item Value Reference Range Interpretation Comments ASPARTATE TRANSAMINASE 20 See_Comment N [Aut omated message] (test code = ASPARTATE The s ystem which TRANSAMINASE) generated this result transmitted ref erence range: <=37. Th e reference range was not used to interpr et this result as normal/abnormal . [facility] AllianceBsikqwnGEUBVKXLU0950-08-62 04:28:00 Test Item Value Reference Range Interpretation Comments Bili Total (test code = Bili Total) 0.5 0.2-1.3 N [facility] AlliancePvnmmijMSZPOZUEM7976-42-02 04:28:00 Test Item Value Reference Range Interpretation Comments Alk Phos (test code = Alk Phos) 89 39-136 N [facility] AllianceCijcbafXGXYODNGE3290-60-16 04:28:00 Test Item Value Reference Range Interpretation Comments ALANINE AMINOTRANSFERASE 11 See_Comment N [A utomated message] (test code = ALANINE The sys tem which AMINOTRANSFERASE) generated this result transmitted ref erence range: <=65. Th e reference range was not used to int erpret this result as normal/abnormal . [facility] AllianceOvlhamoUINSLMVZB3302-50-50 04:28:00 Test Item Value Reference Range Interpretation Comments Creatinine Lvl (test code = Creatinine 0.5 0.5-1.4 N Lvl) [facility] AllianceGqnfauvDYGILZPPT8846-49-14 04:28:00 Test Item Value Reference Range Interpretation Comments BUN (test code = BUN) 3 7-22 L [facility] AllianceVyujdhlGOBAVLNJE1268-69-11 04:28:00 Test Item Value Reference Range Interpretation Comments Glucose Lvl (test code = Glucose Lvl) 255 70-99 H [facility] AllianceFzubfrlJGDGIMXAK4908-98-10 04:28:00 Test Item Value Reference Range Interpretation Comments Total Protein (test code = Total 7.0 6.4-8.4 N Protein) [facility] AllianceNdiyfrbDSBLENEIM9001-30-78 04:28:00 Test Item Value Reference Range Interpretation Comments Calcium Lvl (test code = Calcium Lvl) 8.7 8.5-10.5 N [facility] AllianceFuumzofRQTSWGIQA0877-21-95 04:28:00 Test Item Value Reference Range Interpretation Comments CO2 (test code = CO2) 29 24-32 N [facility] AllianceZczszqxLDTJYZQWX6703-51-52 04:28:00 Test Item Value Reference Range Interpretation Comments Chloride Lvl (test code = Chloride Lvl) 104 95-109 N [facility] AllianceJlozsybWSWSEFAAD9346-12-40 04:28:00 Test Item Value Reference Range Interpretation Comments Potassium Lvl (test code = Potassium 3.5 3.5-5.1 N Lvl) [facility] AllianceMvccmigQTFOGETXF6349-68-22 04:28:00 Test Item Value Reference Range Interpretation Comments Sodium Lvl (test code = Sodium Lvl) 140 135-145 N [facility] HospitalFikkbftUJNXPRDZXL9484-64-33 04:28:00 Test Item Value Reference Range Interpretation Comments PROTIME (test code = PROTIME) 12.1 s 12.0-14.7 N [facility] HospitalDljelquHZJRIVUORM7772-98-63 04:28:00 Test Item Value Reference Range Interpretation Comments aPTT (test code = aPTT) 39.0 s 22.9-35.8 H [facility] HospitalYykxmqnMAXGBWFPSW7629-40-00 04:28:00 Test Item Value Reference Range Interpretation Comments INR (test code = INR) 0.90 0.85-1.17 N [facility] HospitalVkmwycnHNDUOSRNLF6006-74-72 04:28:00 Test Item Value Reference Range Interpretation Comments MCH (test code = MCH) 29.4 pg 27.0-31.0 N [facility] HospitalXypmbylZNTFDQMVIR5170-08-30 04:28:00 Test Item Value Reference Range Interpretation Comments MCV (test code = MCV) 86.1 81.0-99.0 N [facility] HospitalKmhhwktSVIAVPYMHY1762-09-73 04:28:00 Test Item Value Reference Range Interpretation Comments Hct (test code = Hct) 29.4 36.0-48.0 L [facility] HospitalYqlitkbMBWTPHFPYC9061-51-21 04:28:00 Test Item Value Reference Range Interpretation Comments RDW (test code = RDW) 14.0 11.5-14.5 N [facility] HospitalSsbovxsJGVSLODGTM5644-18-70 04:28:00 Test Item Value Reference Range Interpretation Comments WBC X 10x3 (test code = WBC X 10x3) 6.2 3.7-10.4 N [facility] HospitalRgekffpFTNGRXTSJG0279-53-71 04:28:00 Test Item Value Reference Range Interpretation Comments Platelet (test code = Platelet) 178 133-450 N [facility] HospitalQhcjzsgTOMQGIGDWN5756-83-47 04:28:00 Test Item Value Reference Range Interpretation Comments MCHC (test code = MCHC) 34.1 32.0-36.0 N [facility] HospitalJekgqgrJOBUBYNEQI8571-54-96 04:28:00 Test Item Value Reference Range Interpretation Comments RBC X 10x6 (test code = RBC X 10x6) 3.41 4.20-5.40 L [facility] HospitalCxovwbsLZTUWPPCGP3532-32-26 04:28:00 Test Item Value Reference Range Interpretation Comments Hgb (test code = Hgb) 10.0 12.0-16.0 L [facility] HospitalZbfiklgAHHIVAOHXQ0710-51-52 04:28:00 Test Item Value Reference Range Interpretation Comments MPV (test code = MPV) 10.1 7.4-10.4 N [facility] HospitalTqsqplwMUKJUYXBLJ9849-74-35 04:28:00 Test Item Value Reference Range Interpretation Comments Segs-Bands # (test code = Segs-Bands #) 4.4 1.5-8.1 N [facility] HospitalOdrhylfOPWLKROFZU5624-66-77 04:28:00 Test Item Value Reference Range Interpretation Comments Basophils (test code = 0.7 See_Comment N [Aut omated message] The Basophils) system which ge nerated this result tra nsmitted reference range : <=1.0. The reference r leo was not used to int erpret this result as normal/abnormal . [facility] HospitalNxumynyRPJAGVUSVZ5953-13-21 04:28:00 Test Item Value Reference Range Interpretation Comments Segs (test code = Segs) 70.7 45.0-75.0 N [facility] HospitalCqqpxkjKGVUAXBDXH3361-47-30 04:28:00 Test Item Value Reference Range Interpretation Comments Monocytes # (test code 0.3 See_Comment N [Aut omated message] The = Monocytes #) system which generated this result tra nsmitted reference range : <=0.8. The reference r leo was not used to int erpret this result as normal/abnormal . [facility] HospitalZuubhewXWEJRHOLBG0328-19-62 04:28:00 Test Item Value Reference Range Interpretation Comments Lymphocytes # (test code = Lymphocytes 1.2 1.0-5.5 N #) [facility] HospitalCywrhywPRAYDZEVZT8724-03-10 04:28:00 Test Item Value Reference Range Interpretation Comments Monocytes (test code = Monocytes) 4.5 2.0-12.0 N [facility] HospitalIjdiwufQMJFYJVDYW5286-38-37 04:28:00 Test Item Value Reference Range Interpretation Comments Eosinophils (test code = 4.1 See_Comment H [A utomated message] The Eosinophils) system which ge nerated this result tra nsmitted reference range : <=4.0. The reference r leo was not used to int erpret this result as normal/abnormal . [facility] HospitalWhswduxVQJPOJFNUC1722-16-27 04:28:00 Test Item Value Reference Range Interpretation Comments Lymphocytes (test code = Lymphocytes) 20.0 20.0-40.0 N [facility] HospitalFulalamDALVDXLBPH9051-74-40 04:28:00 Test Item Value Reference Range Interpretation Comments Basophils # (test code 0.0 See_Comment N [Aut omated message] The = Basophils #) system which generated this result tra nsmitted reference range : <=0.2. The reference r leo was not used to int erpret this result as normal/abnormal . [facility] HospitalUrhvdizOGFCREKCJR3275-93-63 04:28:00 Test Item Value Reference Range Interpretation Comments Eosinophils # (test code 0.3 See_Comment N [A utomated message] The = Eosinophils #) system whic h generated this result tra nsmitted reference range : <=0.5. The reference r leo was not used to int erpret this result as normal/abnormal . [facility] AllianceNpgsuuiCHQABHMEH2706-67-55 04:28:00 Test Item Value Reference Range Interpretation Comments S Preg (test code = S Negative *NA*(04/14/2013 Preg) 23:28:00) [facility] AllianceKzesybtLGJPNFACA5382-66-53 04:28:00 Test Item Value Reference Range Interpretation Comments Lipase Lvl (test code = Lipase Lvl) 233 73-393 N [facility] AllianceRkulnjfYFFQZWQDI4367-37-98 04:28:00 Test Item Value Reference Range Interpretation Comments Globulin (test code = Globulin) 4.1 2.0-4.0 H [facility] AllianceZuwzodmPGGUVFNJW9949-89-38 04:28:00 Test Item Value Reference Range Interpretation Comments AGAP (test code = AGAP) 10.5 10.0-20.0 N [facility] AllianceUiberwwXYXGEQHLR6710-73-35 04:28:00 Test Item Value Reference Range Interpretation Comments B/C Ratio (test code = B/C Ratio) 6 6-25 N [facility] AllianceSrmjxfpYFQYRHEMP1588-18-45 04:28:00 Test Item Value Reference Range Interpretation Comments A/G Ratio (test code = A/G Ratio) 0.7 0.7-1.6 N [facility] AllianceNfogtfsIXNWSYONY5676-42-37 04:28:00 Test Item Value Reference Range Interpretation Comments eGFR (test code = eGFR) 130 [facility] AllianceNbkoxohXRLEJMURE5184-28-30 04:28:00 Test Item Value Reference Range Interpretation Comments Albumin Lvl (test code = Albumin Lvl) 2.9 3.5-5.0 L [facility] AllianceKnpliajJGXNLDHOY7117-45-30 04:28:00 Test Item Value Reference Range Interpretation Comments ASPARTATE TRANSAMINASE 20 See_Comment N [Aut omated message] (test code = ASPARTATE The s ystem which TRANSAMINASE) generated this result transmitted ref erence range: <=37. Th e reference range was not used to interpr et this result as normal/abnormal . [facility]aleKeubhqlKYOKRFSZE2346-56-63 04:28:00 Test Item Value Reference Range Interpretation Comments Bili Total (test code = Bili Total) 0.5 0.2-1.3 N [facility] AllianceAqdbnrxRHXWZAGYG2608-90-43 04:28:00 Test Item Value Reference Range Interpretation Comments Alk Phos (test code = Alk Phos) 89 39-136 N [facility] AllianceBqwhxboEFBPIGMHU9165-03-38 04:28:00 Test Item Value Reference Range Interpretation Comments ALANINE AMINOTRANSFERASE 11 See_Comment N [A utomated message] (test code = ALANINE The sys tem which AMINOTRANSFERASE) generated this result transmitted ref erence range: <=65. Th e reference range was not used to int erpret this result as normal/abnormal . [facility] AllianceKxdhpuaAZAHGGZXL5899-67-41 04:28:00 Test Item Value Reference Range Interpretation Comments Creatinine Lvl (test code = Creatinine 0.5 0.5-1.4 N Lvl) [facility] AllianceBbnugbqIOYDWGWXA1077-89-69 04:28:00 Test Item Value Reference Range Interpretation Comments BUN (test code = BUN) 3 7-22 L [facility] AllianceZjxquqnPDBELCTPA6929-76-68 04:28:00 Test Item Value Reference Range Interpretation Comments Glucose Lvl (test code = Glucose Lvl) 255 70-99 H [facility] AllianceDniovmpVCSSYXFDK1475-25-89 04:28:00 Test Item Value Reference Range Interpretation Comments Total Protein (test code = Total 7.0 6.4-8.4 N Protein) [facility] AllianceIywxgsuEPZCULASY3188-42-33 04:28:00 Test Item Value Reference Range Interpretation Comments Calcium Lvl (test code = Calcium Lvl) 8.7 8.5-10.5 N [facility] AllianceEhzinvpPOAEWOFAC7083-53-30 04:28:00 Test Item Value Reference Range Interpretation Comments CO2 (test code = CO2) 29 24-32 N [facility] AllianceKrzahspDBENZPOAJ8460-00-04 04:28:00 Test Item Value Reference Range Interpretation Comments Chloride Lvl (test code = Chloride Lvl) 104 95-109 N [facility] AllianceHtyqwenFPHGRCVPE1935-08-40 04:28:00 Test Item Value Reference Range Interpretation Comments Potassium Lvl (test code = Potassium 3.5 3.5-5.1 N Lvl) [facility] AllianceUnjqnjxMOPZQPLSW6590-84-62 04:28:00 Test Item Value Reference Range Interpretation Comments Sodium Lvl (test code = Sodium Lvl) 140 135-145 N [facility] HospitalAackwcfVPTUYEJHIF0800-47-79 04:28:00 Test Item Value Reference Range Interpretation Comments PROTIME (test code = PROTIME) 12.1 s 12.0-14.7 N [facility] HospitalFbfygilTAELPWOZMF6868-76-24 04:28:00 Test Item Value Reference Range Interpretation Comments aPTT (test code = aPTT) 39.0 s 22.9-35.8 H [facility] HospitalFzahsliBPRDCMHXPT3374-29-15 04:28:00 Test Item Value Reference Range Interpretation Comments INR (test code = INR) 0.90 0.85-1.17 N [facility] HospitalAcfougnHYCWNIYMGE3895-97-92 04:28:00 Test Item Value Reference Range Interpretation Comments MCH (test code = MCH) 29.4 pg 27.0-31.0 N [facility] HospitalAkvuruiYYRLUMUIGD2578-40-50 04:28:00 Test Item Value Reference Range Interpretation Comments MCV (test code = MCV) 86.1 81.0-99.0 N [facility] HospitalEkxoaytBPDUDRDBJG5432-06-77 04:28:00 Test Item Value Reference Range Interpretation Comments Hct (test code = Hct) 29.4 36.0-48.0 L [facility] HospitalNrgzlujDGBTYTDQLV0109-97-11 04:28:00 Test Item Value Reference Range Interpretation Comments RDW (test code = RDW) 14.0 11.5-14.5 N [facility] HospitalIorxmbvPCYRVJQHKF9603-29-48 04:28:00 Test Item Value Reference Range Interpretation Comments WBC X 10x3 (test code = WBC X 10x3) 6.2 3.7-10.4 N [facility] HospitalSbhrysdGQXTPATFIM8990-87-68 04:28:00 Test Item Value Reference Range Interpretation Comments Platelet (test code = Platelet) 178 133-450 N [facility] HospitalWftirxtOQLUWVEPPJ1158-89-96 04:28:00 Test Item Value Reference Range Interpretation Comments MCHC (test code = MCHC) 34.1 32.0-36.0 N [facility] HospitalTvfbmqoZOHNPWEVCM1817-05-13 04:28:00 Test Item Value Reference Range Interpretation Comments RBC X 10x6 (test code = RBC X 10x6) 3.41 4.20-5.40 L [facility] HospitalGsihcrhMPCHMQORAV2669-51-39 04:28:00 Test Item Value Reference Range Interpretation Comments Hgb (test code = Hgb) 10.0 12.0-16.0 L [facility] HospitalYtvedpdWKRHZNJMUI0185-73-37 04:28:00 Test Item Value Reference Range Interpretation Comments MPV (test code = MPV) 10.1 7.4-10.4 N [facility] HospitalDgocdvnYNQZXQUFKH2731-70-15 04:28:00 Test Item Value Reference Range Interpretation Comments Segs-Bands # (test code = Segs-Bands #) 4.4 1.5-8.1 N [facility] HospitalJedzlsgNDOEHRKHGC6719-94-75 04:28:00 Test Item Value Reference Range Interpretation Comments Basophils (test code = 0.7 See_Comment N [Aut omated message] The Basophils) system which ge nerated this result tra nsmitted reference range : <=1.0. The reference r leo was not used to int erpret this result as normal/abnormal . [facility] HospitalCousgrnEMDYYGFCCE2448-80-57 04:28:00 Test Item Value Reference Range Interpretation Comments Segs (test code = Segs) 70.7 45.0-75.0 N [facility] HospitalAonfdgsCDEETAHZUE8917-50-66 04:28:00 Test Item Value Reference Range Interpretation Comments Monocytes # (test code 0.3 See_Comment N [Aut omated message] The = Monocytes #) system which generated this result tra nsmitted reference range : <=0.8. The reference r leo was not used to int erpret this result as normal/abnormal . [facility] HospitalJnswaylWTFNDTUUEB5846-14-40 04:28:00 Test Item Value Reference Range Interpretation Comments Lymphocytes # (test code = Lymphocytes 1.2 1.0-5.5 N #) [facility] HospitalTnqgaonCRVISTOWYN7292-22-84 04:28:00 Test Item Value Reference Range Interpretation Comments Monocytes (test code = Monocytes) 4.5 2.0-12.0 N [facility] HospitalOmoensiODOTXQAHAI5982-86-53 04:28:00 Test Item Value Reference Range Interpretation Comments Eosinophils (test code = 4.1 See_Comment H [A utomated message] The Eosinophils) system which ge nerated this result tra nsmitted reference range : <=4.0. The reference r leo was not used to int erpret this result as normal/abnormal . [facility] HospitalPfimiywJTRJLRREMW4335-26-97 04:28:00 Test Item Value Reference Range Interpretation Comments Lymphocytes (test code = Lymphocytes) 20.0 20.0-40.0 N [facility] HospitalGeqehmxQFIPOWMGVH1950-07-60 04:28:00 Test Item Value Reference Range Interpretation Comments Basophils # (test code 0.0 See_Comment N [Aut omated message] The = Basophils #) system which generated this result tra nsmitted reference range : <=0.2. The reference r leo was not used to int erpret this result as normal/abnormal . [facility] HospitalJsqozsbCGCMIRPNVO5733-85-67 04:28:00 Test Item Value Reference Range Interpretation Comments Eosinophils # (test code 0.3 See_Comment N [A utomated message] The = Eosinophils #) system whic h generated this result tra nsmitted reference range : <=0.5. The reference r leo was not used to int erpret this result as normal/abnormal . [facility] AllianceXuzokadRVLNAZVCS8073-71-96 04:28:00 Test Item Value Reference Range Interpretation Comments S Preg (test code = S Negative *NA*(04/14/2013 Preg) 23:28:00) [facility] AllianceVlhzekhIOGQSVGRW4662-09-94 04:28:00 Test Item Value Reference Range Interpretation Comments Lipase Lvl (test code = Lipase Lvl) 233 73-393 N [facility] AllianceUjrjkkmXHRJOOKSX4224-97-06 04:28:00 Test Item Value Reference Range Interpretation Comments Globulin (test code = Globulin) 4.1 2.0-4.0 H [facility] AllianceLzemfypVVJMEIKKY7247-41-10 04:28:00 Test Item Value Reference Range Interpretation Comments AGAP (test code = AGAP) 10.5 10.0-20.0 N [facility] AllianceBfxqqlsYVNABUNTM4142-32-04 04:28:00 Test Item Value Reference Range Interpretation Comments B/C Ratio (test code = B/C Ratio) 6 6-25 N [facility] AllianceDguecfeKMXPVPUTC9471-20-00 04:28:00 Test Item Value Reference Range Interpretation Comments A/G Ratio (test code = A/G Ratio) 0.7 0.7-1.6 N [facility] AllianceXvksmtaUWQUZLOVJ7368-45-94 04:28:00 Test Item Value Reference Range Interpretation Comments eGFR (test code = eGFR) 130 [facility] AllianceCsoitzfXCCLKTCJX8306-25-07 04:28:00 Test Item Value Reference Range Interpretation Comments Albumin Lvl (test code = Albumin Lvl) 2.9 3.5-5.0 L [facility]XtmvcrsTGGRMIXWI6705-92-42 04:28:00 Test Item Value Reference Range Interpretation Comments ASPARTATE TRANSAMINASE 20 See_Comment N [Aut omated message] (test code = ASPARTATE The s ystem which TRANSAMINASE) generated this result transmitted ref erence range: <=37. Th e reference range was not used to interpr et this result as normal/abnormal . [facility] AllianceSmdxwhgCWGUIOBIA4566-53-34 04:28:00 Test Item Value Reference Range Interpretation Comments Bili Total (test code = Bili Total) 0.5 0.2-1.3 N [facility] AllianceJgsvybxOPJXJKBOD0261-34-81 04:28:00 Test Item Value Reference Range Interpretation Comments Alk Phos (test code = Alk Phos) 89 39-136 N [facility] AllianceYrnvicdZXZFBTMSG7636-50-27 04:28:00 Test Item Value Reference Range Interpretation Comments ALANINE AMINOTRANSFERASE 11 See_Comment N [A utomated message] (test code = ALANINE The sys tem which AMINOTRANSFERASE) generated this result transmitted ref erence range: <=65. Th e reference range was not used to int erpret this result as normal/abnormal . [facility]QjvswxdONHLYFKUB0576-37-16 04:28:00 Test Item Value Reference Range Interpretation Comments Creatinine Lvl (test code = Creatinine 0.5 0.5-1.4 N Lvl) [facility] AllianceLjffpmtJXTZNHSQN7338-87-94 04:28:00 Test Item Value Reference Range Interpretation Comments BUN (test code = BUN) 3 7-22 L [facility] AllianceMosqwukCJVDJVNQI0133-18-72 04:28:00 Test Item Value Reference Range Interpretation Comments Glucose Lvl (test code = Glucose Lvl) 255 70-99 H [facility] AllianceFvhwptuHNRRJXCYL8400-59-72 04:28:00 Test Item Value Reference Range Interpretation Comments Total Protein (test code = Total 7.0 6.4-8.4 N Protein) [facility] AllianceIkqfhjxBKXUHUVOQ6310-70-42 04:28:00 Test Item Value Reference Range Interpretation Comments Calcium Lvl (test code = Calcium Lvl) 8.7 8.5-10.5 N [facility]AigvvaqJQSRBVNEL0052-04-79 04:28:00 Test Item Value Reference Range Interpretation Comments CO2 (test code = CO2) 29 24-32 N [facility] AllianceSiufuguLIBOKOKAF9535-54-39 04:28:00 Test Item Value Reference Range Interpretation Comments Chloride Lvl (test code = Chloride Lvl) 104 95-109 N [facility] AllianceKhcnxfhXWGQNUIXJ1857-66-30 04:28:00 Test Item Value Reference Range Interpretation Comments Potassium Lvl (test code = Potassium 3.5 3.5-5.1 N Lvl) [facility] AllianceZqkwaqcEVPFYTPTL8946-20-29 04:28:00 Test Item Value Reference Range Interpretation Comments Sodium Lvl (test code = Sodium Lvl) 140 135-145 N [facility] HospitalPvfzhoxWCXQXBEPBF7240-06-55 04:28:00 Test Item Value Reference Range Interpretation Comments PROTIME (test code = PROTIME) 12.1 s 12.0-14.7 N [facility] HospitalCtdlcoiMBOLPORIOC5416-09-70 04:28:00 Test Item Value Reference Range Interpretation Comments aPTT (test code = aPTT) 39.0 s 22.9-35.8 H [facility] HospitalXlpwyvpOMCCJQCXNZ0237-40-56 04:28:00 Test Item Value Reference Range Interpretation Comments INR (test code = INR) 0.90 0.85-1.17 N [facility] HospitalZsanrbePKGZKDAWUL0992-80-82 04:28:00 Test Item Value Reference Range Interpretation Comments MCH (test code = MCH) 29.4 pg 27.0-31.0 N [facility] HospitalJqskigzCFQAYUYADS5911-85-21 04:28:00 Test Item Value Reference Range Interpretation Comments MCV (test code = MCV) 86.1 81.0-99.0 N [facility] HospitalNpbckrqGKNWAKMMHH3683-76-51 04:28:00 Test Item Value Reference Range Interpretation Comments Hct (test code = Hct) 29.4 36.0-48.0 L [facility] HospitalObimvifTTHJMJVBIA5694-97-08 04:28:00 Test Item Value Reference Range Interpretation Comments RDW (test code = RDW) 14.0 11.5-14.5 N [facility] HospitalYrhqpqwJAYDYCEXTD7157-80-92 04:28:00 Test Item Value Reference Range Interpretation Comments WBC X 10x3 (test code = WBC X 10x3) 6.2 3.7-10.4 N [facility] HospitalVotbzsiCQSBPUBNME9566-32-31 04:28:00 Test Item Value Reference Range Interpretation Comments Platelet (test code = Platelet) 178 133-450 N [facility] [facility]IR4769-[facility] 04:28:00 Test Item Value Reference Range Interpretation Comments MCHC (test code = MCHC) 34.1 32.0-36.0 N [facility]YvodjhzDZOXLMBRJG1530-06-28 04:28:00 Test Item Value Reference Range Interpretation Comments RBC X 10x6 (test code = RBC X 10x6) 3.41 4.20-5.40 L [facility] HospitalLbhagduXHUQZGSPLT5234-61-58 04:28:00 Test Item Value Reference Range Interpretation Comments Hgb (test code = Hgb) 10.0 12.0-16.0 L [facility] HospitalWomkpriRNXCFUPWFG3780-55-54 04:28:00 Test Item Value Reference Range Interpretation Comments MPV (test code = MPV) 10.1 7.4-10.4 N [facility] HospitalEghczkhREWGMEZDKH5164-53-38 04:28:00 Test Item Value Reference Range Interpretation Comments Segs-Bands # (test code = Segs-Bands #) 4.4 1.5-8.1 N [facility] HospitalNslubyiUDBYBZSUVX5723-44-00 04:28:00 Test Item Value Reference Range Interpretation Comments Basophils (test code = 0.7 See_Comment N [Aut omated message] The Basophils) system which ge nerated this result tra nsmitted reference range : <=1.0. The reference r leo was not used to int erpret this result as normal/abnormal . [facility] HospitalHzohiluJRFAMZFWWP5522-98-04 04:28:00 Test Item Value Reference Range Interpretation Comments Segs (test code = Segs) 70.7 45.0-75.0 N [facility] HospitalFpqugsoFABVOJBAIY8444-73-17 04:28:00 Test Item Value Reference Range Interpretation Comments Monocytes # (test code 0.3 See_Comment N [Aut omated message] The = Monocytes #) system which generated this result tra nsmitted reference range : <=0.8. The reference r leo was not used to int erpret this result as normal/abnormal . [facility] HospitalHteafbzTWSKQTPCHE7632-78-36 04:28:00 Test Item Value Reference Range Interpretation Comments Lymphocytes # (test code = Lymphocytes 1.2 1.0-5.5 N #) [facility] HospitalOswybriXZBDYDQFHS0660-52-03 04:28:00 Test Item Value Reference Range Interpretation Comments Monocytes (test code = Monocytes) 4.5 2.0-12.0 N [facility] HospitalVxuwqwbLNACNFRILD3207-76-35 04:28:00 Test Item Value Reference Range Interpretation Comments Eosinophils (test code = 4.1 See_Comment H [A utomated message] The Eosinophils) system which ge nerated this result tra nsmitted reference range : <=4.0. The reference r leo was not used to int erpret this result as normal/abnormal . [facility] HospitalGwlfpmiFRTAHQVUDF2615-43-90 04:28:00 Test Item Value Reference Range Interpretation Comments Lymphocytes (test code = Lymphocytes) 20.0 20.0-40.0 N [facility] HospitalZfcwhbhIDYICQNMNX8805-59-99 04:28:00 Test Item Value Reference Range Interpretation Comments Basophils # (test code 0.0 See_Comment N [Aut omated message] The = Basophils #) system which generated this result tra nsmitted reference range : <=0.2. The reference r leo was not used to int erpret this result as normal/abnormal . [facility] HospitalSsyiopgKVBKCTMASH4883-97-59 04:28:00 Test Item Value Reference Range Interpretation Comments Eosinophils # (test code 0.3 See_Comment N [A utomated message] The = Eosinophils #) system whic h generated this result tra nsmitted reference range : <=0.5. The reference r leo was not used to int erpret this result as normal/abnormal . [facility] AllianceHixqotbXUHPBQNOY3440-43-08 04:28:00 Test Item Value Reference Range Interpretation Comments S Preg (test code = S Negative *NA*(04/14/2013 Preg) 23:28:00) [facility] AllianceFkujrdhOZEISOAJH5311-98-39 04:28:00 Test Item Value Reference Range Interpretation Comments Lipase Lvl (test code = Lipase Lvl) 233 73-393 N [facility] AllianceOnxeubtTXSIAEZPB7872-04-12 04:28:00 Test Item Value Reference Range Interpretation Comments Globulin (test code = Globulin) 4.1 2.0-4.0 H [facility] AllianceQqhniktEHTUOJMEX2769-19-51 04:28:00 Test Item Value Reference Range Interpretation Comments AGAP (test code = AGAP) 10.5 10.0-20.0 N [facility] AllianceMustxjyCYXYWTMOB0360-58-18 04:28:00 Test Item Value Reference Range Interpretation Comments B/C Ratio (test code = B/C Ratio) 6 6-25 N [facility] AllianceKeejoniHDHJIQYJL4583-10-84 04:28:00 Test Item Value Reference Range Interpretation Comments A/G Ratio (test code = A/G Ratio) 0.7 0.7-1.6 N [facility] AllianceYcygdhhDERYOUFZU0558-34-70 04:28:00 Test Item Value Reference Range Interpretation Comments eGFR (test code = eGFR) 130 [facility] AllianceUxnogqvOAPJWREBX1394-35-56 04:28:00 Test Item Value Reference Range Interpretation Comments Albumin Lvl (test code = Albumin Lvl) 2.9 3.5-5.0 L [facility] AllianceUufmvxaMPOUYEYDO5824-93-44 04:28:00 Test Item Value Reference Range Interpretation Comments ASPARTATE TRANSAMINASE 20 See_Comment N [Aut omated message] (test code = ASPARTATE The s ystem which TRANSAMINASE) generated this result transmitted ref erence range: <=37. Th e reference range was not used to interpr et this result as normal/abnormal . [facility] AllianceWhzlwkmYDOPDLYRJ6876-21-82 04:28:00 Test Item Value Reference Range Interpretation Comments Bili Total (test code = Bili Total) 0.5 0.2-1.3 N [facility] AllianceAdlhowrPGXCZACOC6770-98-42 04:28:00 Test Item Value Reference Range Interpretation Comments Alk Phos (test code = Alk Phos) 89 39-136 N [facility] AllianceTqpfjatAMDVJSVKM5896-15-40 04:28:00 Test Item Value Reference Range Interpretation Comments ALANINE AMINOTRANSFERASE 11 See_Comment N [A utomated message] (test code = ALANINE The sys tem which AMINOTRANSFERASE) generated this result transmitted ref erence range: <=65. Th e reference range was not used to int erpret this result as normal/abnormal . [facility] AllianceUzsjvajSZHXTHBWV0511-32-35 04:28:00 Test Item Value Reference Range Interpretation Comments Creatinine Lvl (test code = Creatinine 0.5 0.5-1.4 N Lvl) [facility] AllianceNlkedgzALBPQVCAO9553-13-96 04:28:00 Test Item Value Reference Range Interpretation Comments BUN (test code = BUN) 3 7-22 L [facility] AllianceNbzkesnLAOBGUCSR7007-19-76 04:28:00 Test Item Value Reference Range Interpretation Comments Glucose Lvl (test code = Glucose Lvl) 255 70-99 H [facility] AllianceEryxqokNEITXIXBG8098-65-21 04:28:00 Test Item Value Reference Range Interpretation Comments Total Protein (test code = Total 7.0 6.4-8.4 N Protein) [facility] AllianceSprvxnjHQJBHRDXS1443-25-67 04:28:00 Test Item Value Reference Range Interpretation Comments Calcium Lvl (test code = Calcium Lvl) 8.7 8.5-10.5 N [facility] AllianceGyaxfsyFTDCFJOYI9862-20-67 04:28:00 Test Item Value Reference Range Interpretation Comments CO2 (test code = CO2) 29 24-32 N [facility] AllianceVqvxiowEILARXRUI9849-64-22 04:28:00 Test Item Value Reference Range Interpretation Comments Chloride Lvl (test code = Chloride Lvl) 104 95-109 N [facility] AllianceXospcawTXGQNZZLD2657-58-55 04:28:00 Test Item Value Reference Range Interpretation Comments Potassium Lvl (test code = Potassium 3.5 3.5-5.1 N Lvl) [facility] AllianceWcjvxkiCVSJQQEKW6252-65-78 04:28:00 Test Item Value Reference Range Interpretation Comments Sodium Lvl (test code = Sodium Lvl) 140 135-145 N [facility] HospitalTuykmfeTACYNFRGZB5773-58-72 04:28:00 Test Item Value Reference Range Interpretation Comments PROTIME (test code = PROTIME) 12.1 s 12.0-14.7 N [facility] HospitalUwxyyruSGVHSPKOKR2474-07-09 04:28:00 Test Item Value Reference Range Interpretation Comments aPTT (test code = aPTT) 39.0 s 22.9-35.8 H [facility] HospitalTxtptvrRHDYQLVHAL0930-65-00 04:28:00 Test Item Value Reference Range Interpretation Comments INR (test code = INR) 0.90 0.85-1.17 N [facility] HospitalPcytqfiUODNACGDIE9260-73-23 04:28:00 Test Item Value Reference Range Interpretation Comments MCH (test code = MCH) 29.4 pg 27.0-31.0 N [facility] HospitalOjtvxidWILQZJONID9175-05-74 04:28:00 Test Item Value Reference Range Interpretation Comments MCV (test code = MCV) 86.1 81.0-99.0 N [facility] HospitalFuxvhtsAHVHAAZZOI2531-83-31 04:28:00 Test Item Value Reference Range Interpretation Comments Hct (test code = Hct) 29.4 36.0-48.0 L [facility] HospitalKlddldyFRNPTGNDWK8289-07-06 04:28:00 Test Item Value Reference Range Interpretation Comments RDW (test code = RDW) 14.0 11.5-14.5 N [facility] HospitalJtsxudjFQXNMCDATJ1733-73-03 04:28:00 Test Item Value Reference Range Interpretation Comments WBC X 10x3 (test code = WBC X 10x3) 6.2 3.7-10.4 N [facility] HospitalNimexicYNSRVRHJJJ2663-99-72 04:28:00 Test Item Value Reference Range Interpretation Comments Platelet (test code = Platelet) 178 133-450 N [facility] HospitalDdvgfenQEQSEJPKWZ9889-37-67 04:28:00 Test Item Value Reference Range Interpretation Comments MCHC (test code = MCHC) 34.1 32.0-36.0 N [facility] HospitalRnxqidmCHZVMTERMW6012-92-79 04:28:00 Test Item Value Reference Range Interpretation Comments RBC X 10x6 (test code = RBC X 10x6) 3.41 4.20-5.40 L [facility] HospitalCqhpkbmQIWYAYCYXZ7897-42-99 04:28:00 Test Item Value Reference Range Interpretation Comments Hgb (test code = Hgb) 10.0 12.0-16.0 L [facility] HospitalJavqkzvSHQYAMSEYQ7775-12-70 04:28:00 Test Item Value Reference Range Interpretation Comments MPV (test code = MPV) 10.1 7.4-10.4 N [facility] HospitalYkoglflJVOEVHPTOO5575-28-13 04:28:00 Test Item Value Reference Range Interpretation Comments Segs-Bands # (test code = Segs-Bands #) 4.4 1.5-8.1 N [facility] HospitalFzxiodrPOMHDYPJZY9267-61-46 04:28:00 Test Item Value Reference Range Interpretation Comments Basophils (test code = 0.7 See_Comment N [Aut omated message] The Basophils) system which ge nerated this result tra nsmitted reference range : <=1.0. The reference r leo was not used to int erpret this result as normal/abnormal . [facility] HospitalCodibfqNRRJMCHZXN4619-34-57 04:28:00 Test Item Value Reference Range Interpretation Comments Segs (test code = Segs) 70.7 45.0-75.0 N [facility] HospitalQhbosjlPSWAGOWFCI0179-17-88 04:28:00 Test Item Value Reference Range Interpretation Comments Monocytes # (test code 0.3 See_Comment N [Aut omated message] The = Monocytes #) system which generated this result tra nsmitted reference range : <=0.8. The reference r leo was not used to int erpret this result as normal/abnormal . [facility] HospitalVgprzjfBCHDJHYQSK8501-67-52 04:28:00 Test Item Value Reference Range Interpretation Comments Lymphocytes # (test code = Lymphocytes 1.2 1.0-5.5 N #) [facility] HospitalMjukupaMDRLLEYFOS6279-96-15 04:28:00 Test Item Value Reference Range Interpretation Comments Monocytes (test code = Monocytes) 4.5 2.0-12.0 N [facility] HospitalTkxzjiyBZTIHHVGDB8805-69-37 04:28:00 Test Item Value Reference Range Interpretation Comments Eosinophils (test code = 4.1 See_Comment H [A utomated message] The Eosinophils) system which ge nerated this result tra nsmitted reference range : <=4.0. The reference r leo was not used to int erpret this result as normal/abnormal . [facility] HospitalVhatyczUAYXLEOPIB6828-09-45 04:28:00 Test Item Value Reference Range Interpretation Comments Lymphocytes (test code = Lymphocytes) 20.0 20.0-40.0 N [facility] HospitalKtuykmzVMTZQRTFQH0351-56-33 04:28:00 Test Item Value Reference Range Interpretation Comments Basophils # (test code 0.0 See_Comment N [Aut omated message] The = Basophils #) system which generated this result tra nsmitted reference range : <=0.2. The reference r leo was not used to int erpret this result as normal/abnormal . [facility] HospitalLkmxvadCDBLDDZMDF5247-43-27 04:28:00 Test Item Value Reference Range Interpretation Comments Eosinophils # (test code 0.3 See_Comment N [A utomated message] The = Eosinophils #) system whic h generated this result tra nsmitted reference range : <=0.5. The reference r leo was not used to int erpret this result as normal/abnormal . [facility] AllianceSesnapnANNHYFRNU0708-54-81 04:28:00 Test Item Value Reference Range Interpretation Comments S Preg (test code = S Negative *NA*(04/14/2013 Preg) 23:28:00) [facility] AllianceOifsnqsILPTWNAZF6000-19-67 04:28:00 Test Item Value Reference Range Interpretation Comments Lipase Lvl (test code = Lipase Lvl) 233 73-393 N [facility] AllianceFlaevozDROMNYRUX7019-22-36 04:28:00 Test Item Value Reference Range Interpretation Comments Globulin (test code = Globulin) 4.1 2.0-4.0 H [facility] AllianceMysnstkIQEWESHKT4688-34-21 04:28:00 Test Item Value Reference Range Interpretation Comments AGAP (test code = AGAP) 10.5 10.0-20.0 N [facility] AllianceJqnsnrrPAKGFMBZA7377-73-98 04:28:00 Test Item Value Reference Range Interpretation Comments B/C Ratio (test code = B/C Ratio) 6 6-25 N [facility] AllianceExyrqjmDXIBGFDAS8977-81-26 04:28:00 Test Item Value Reference Range Interpretation Comments A/G Ratio (test code = A/G Ratio) 0.7 0.7-1.6 N [facility] AllianceDphyrizUTQDZBMHW5210-22-83 04:28:00 Test Item Value Reference Range Interpretation Comments eGFR (test code = eGFR) 130 [facility] AllianceVbhpoeyGDBXWSWYJ5725-94-31 04:28:00 Test Item Value Reference Range Interpretation Comments Albumin Lvl (test code = Albumin Lvl) 2.9 3.5-5.0 L [facility] AllianceGbhwtwgZDNDZCLZA9193-44-15 04:28:00 Test Item Value Reference Range Interpretation Comments ASPARTATE TRANSAMINASE 20 See_Comment N [Aut omated message] (test code = ASPARTATE The s ystem which TRANSAMINASE) generated this result transmitted ref erence range: <=37. Th e reference range was not used to interpr et this result as normal/abnormal . [facility] AllianceNfzglroNBFSNRBWC8622-72-23 04:28:00 Test Item Value Reference Range Interpretation Comments Bili Total (test code = Bili Total) 0.5 0.2-1.3 N [facility] AllianceHpqaznoWQHTRQXIE8671-70-71 04:28:00 Test Item Value Reference Range Interpretation Comments Alk Phos (test code = Alk Phos) 89 39-136 N [facility] AllianceBsegdpcILPIEWZTT1496-33-81 04:28:00 Test Item Value Reference Range Interpretation Comments ALANINE AMINOTRANSFERASE 11 See_Comment N [A utomated message] (test code = ALANINE The sys tem which AMINOTRANSFERASE) generated this result transmitted ref erence range: <=65. Th e reference range was not used to int erpret this result as normal/abnormal . [facility] AllianceHyafmjaEAHSUFJRB1328-55-21 04:28:00 Test Item Value Reference Range Interpretation Comments Creatinine Lvl (test code = Creatinine 0.5 0.5-1.4 N Lvl) [facility] AllianceDofjfidMKJUHFWFS7007-15-12 04:28:00 Test Item Value Reference Range Interpretation Comments BUN (test code = BUN) 3 7-22 L [facility] AllianceSpuvttcJXOBFKJTC8663-50-99 04:28:00 Test Item Value Reference Range Interpretation Comments Glucose Lvl (test code = Glucose Lvl) 255 70-99 H [facility] AllianceCczcvbqBTYJEZEOT6352-87-17 04:28:00 Test Item Value Reference Range Interpretation Comments Total Protein (test code = Total 7.0 6.4-8.4 N Protein) [facility] AllianceEipnsipEHNJZPRLA9259-29-95 04:28:00 Test Item Value Reference Range Interpretation Comments Calcium Lvl (test code = Calcium Lvl) 8.7 8.5-10.5 N [facility] AllianceKxbtnomULBSZVRGS7726-04-36 04:28:00 Test Item Value Reference Range Interpretation Comments CO2 (test code = CO2) 29 24-32 N [facility] AllianceRqxxfqiXGLVIQDYD1025-06-25 04:28:00 Test Item Value Reference Range Interpretation Comments Chloride Lvl (test code = Chloride Lvl) 104 95-109 N [facility] AllianceRhjodtyGOPQGZWWX9063-78-03 04:28:00 Test Item Value Reference Range Interpretation Comments Potassium Lvl (test code = Potassium 3.5 3.5-5.1 N Lvl) [facility] AllianceYjnnrlrAVVINDTAN6536-68-02 04:28:00 Test Item Value Reference Range Interpretation Comments Sodium Lvl (test code = Sodium Lvl) 140 135-145 N [facility] HospitalRktieifXSERLKYUSN3737-00-20 04:28:00 Test Item Value Reference Range Interpretation Comments PROTIME (test code = PROTIME) 12.1 s 12.0-14.7 N [facility] HospitalGauzkaxDPXCBVXCQW1484-64-77 04:28:00 Test Item Value Reference Range Interpretation Comments aPTT (test code = aPTT) 39.0 s 22.9-35.8 H [facility] HospitalJcosjamWJSQTTFMTB3309-69-46 04:28:00 Test Item Value Reference Range Interpretation Comments INR (test code = INR) 0.90 0.85-1.17 N [facility] HospitalVgwwsmwQVWDYCOLGG9283-84-57 04:28:00 Test Item Value Reference Range Interpretation Comments MCH (test code = MCH) 29.4 pg 27.0-31.0 N [facility] HospitalCbsuwexNCGFVFTSLX1275-84-67 04:28:00 Test Item Value Reference Range Interpretation Comments MCV (test code = MCV) 86.1 81.0-99.0 N [facility] HospitalOohnalcRZORYFGREB1243-78-14 04:28:00 Test Item Value Reference Range Interpretation Comments Hct (test code = Hct) 29.4 36.0-48.0 L [facility] HospitalUbwtvolPFMBIKJNMZ3468-79-33 04:28:00 Test Item Value Reference Range Interpretation Comments RDW (test code = RDW) 14.0 11.5-14.5 N [facility] HospitalJysfummSDKBNHJLIR4205-82-88 04:28:00 Test Item Value Reference Range Interpretation Comments WBC X 10x3 (test code = WBC X 10x3) 6.2 3.7-10.4 N [facility] HospitalRmjvyrxLAACJJCQWH9778-25-88 04:28:00 Test Item Value Reference Range Interpretation Comments Platelet (test code = Platelet) 178 133-450 N [facility] HospitalPumrnboKGYPTZOVRZ5696-69-68 04:28:00 Test Item Value Reference Range Interpretation Comments MCHC (test code = MCHC) 34.1 32.0-36.0 N [facility] HospitalZhjiwyqAXHXQYRHAS9155-57-44 04:28:00 Test Item Value Reference Range Interpretation Comments RBC X 10x6 (test code = RBC X 10x6) 3.41 4.20-5.40 L [facility] HospitalJmillqeYBODYLTDTS9075-00-41 04:28:00 Test Item Value Reference Range Interpretation Comments Hgb (test code = Hgb) 10.0 12.0-16.0 L [facility] HospitalZoilqotCGQEFOESQP2546-48-42 04:28:00 Test Item Value Reference Range Interpretation Comments MPV (test code = MPV) 10.1 7.4-10.4 N [facility] HospitalQdtvwhiGGRQOTZWAT8028-44-86 04:28:00 Test Item Value Reference Range Interpretation Comments Segs-Bands # (test code = Segs-Bands #) 4.4 1.5-8.1 N [facility] HospitalYyzjtjoFAKAAHENFC7799-30-73 04:28:00 Test Item Value Reference Range Interpretation Comments Basophils (test code = 0.7 See_Comment N [Aut omated message] The Basophils) system which ge nerated this result tra nsmitted reference range : <=1.0. The reference r leo was not used to int erpret this result as normal/abnormal . [facility] HospitalHnzyqbsRLXSTXIMIC8656-14-79 04:28:00 Test Item Value Reference Range Interpretation Comments Segs (test code = Segs) 70.7 45.0-75.0 N [facility] HospitalQduifkmAYPPHHJSIA8143-41-98 04:28:00 Test Item Value Reference Range Interpretation Comments Monocytes # (test code 0.3 See_Comment N [Aut omated message] The = Monocytes #) system which generated this result tra nsmitted reference range : <=0.8. The reference r leo was not used to int erpret this result as normal/abnormal . [facility] HospitalOcykxoiBIMDUJSGGL3976-09-00 04:28:00 Test Item Value Reference Range Interpretation Comments Lymphocytes # (test code = Lymphocytes 1.2 1.0-5.5 N #) [facility] HospitalStxdynqVBOIASEGHY9834-62-48 04:28:00 Test Item Value Reference Range Interpretation Comments Monocytes (test code = Monocytes) 4.5 2.0-12.0 N [facility] HospitalOsvlstePQBSZVZZFO4958-42-03 04:28:00 Test Item Value Reference Range Interpretation Comments Eosinophils (test code = 4.1 See_Comment H [A utomated message] The Eosinophils) system which ge nerated this result tra nsmitted reference range : <=4.0. The reference r leo was not used to int erpret this result as normal/abnormal . [facility] HospitalEjyhcdnFHGOQLEZON0415-06-08 04:28:00 Test Item Value Reference Range Interpretation Comments Lymphocytes (test code = Lymphocytes) 20.0 20.0-40.0 N [facility] HospitalJcxhjijVMXYXLPPHV9655-65-77 04:28:00 Test Item Value Reference Range Interpretation Comments Basophils # (test code 0.0 See_Comment N [Aut omated message] The = Basophils #) system which generated this result tra nsmitted reference range : <=0.2. The reference r leo was not used to int erpret this result as normal/abnormal . [facility] HospitalQiuavmpHOJWEYWRKH7499-92-67 04:28:00 Test Item Value Reference Range Interpretation Comments Eosinophils # (test code 0.3 See_Comment N [A utomated message] The = Eosinophils #) system Attentio h generated this result tra nsmitted reference range : <=0.5. The reference r leo was not used to int erpret this result as normal/abnormal . [facility] GLUCOSE ZGNIHOQ4709-32-60 01:12:00 Test Item Value Reference Range Interpretation Comments Gluc POC Lifscn (test code = Gluc POC 260 70-99 H Lifscn) [facility] GLUCOSE EVNNVKD2929-54-32 01:12:00 Test Item Value Reference Range Interpretation Comments Comment1 (test code = Comment1) Notify RN/ [facility] GLUCOSE VDSJOJR6194-08-58 01:12:00 Test Item Value Reference Range Interpretation Comments Gluc POC Lifscn (test code = Gluc POC 260 70-99 H Lifscn) [facility] GLUCOSE DQOXDJS8647-76-92 01:12:00 Test Item Value Reference Range Interpretation Comments Comment1 (test code = Comment1) Notify RN/ [facility] GLUCOSE ZXHEVNA5344-63-82 01:12:00 Test Item Value Reference Range Interpretation Comments Gluc POC Lifscn (test code = Gluc POC 260 70-99 H Lifscn) [facility] GLUCOSE CJAEGNK0203-44-38 01:12:00 Test Item Value Reference Range Interpretation Comments Comment1 (test code = Comment1) Notify RN/ [facility] GLUCOSE SRAAEAS4334-21-49 01:12:00 Test Item Value Reference Range Interpretation Comments Gluc POC Lifscn (test code = Gluc POC 260 70-99 H Lifscn) [facility] GLUCOSE SEPCPUI0899-73-70 01:12:00 Test Item Value Reference Range Interpretation Comments Comment1 (test code = Comment1) Notify RN/ [facility] GLUCOSE RWFFVPL4122-10-43 01:12:00 Test Item Value Reference Range Interpretation Comments Gluc POC Lifscn (test code = Gluc POC 260 70-99 H Lifscn) [facility] GLUCOSE IKULLZI0126-11-48 01:12:00 Test Item Value Reference Range Interpretation Comments Comment1 (test code = Comment1) [facility]ibihlvZPBLVMMHIF9182-80-05 23:40:00 Test Item Value Reference Range Interpretation Comments UA Protein (test code = Trace A UA Protein) *ABN*(03/14/2012 18:40:00) [facility]keyKTVJACIKEG1322-90-25 23:40:00 Test Item Value Reference Range Interpretation Comments UA pH (test code = UA pH) 6.0 1 5.0-8.0 N [facility]aVoivytgIFGYMXAXLC5650-77-96 23:40:00 Test Item Value Reference Range Interpretation Comments UA Ketones (test code = >=80 mg/dL UA Ketones) *NA*(03/14/2012 18:40:00) [facility]JgcykryNZNDWMNOKU9588-17-10 23:40:00 Test Item Value Reference Range Interpretation Comments UA Glucose (test code = >=1000 mg/dL A UA Glucose) *ABN*(03/14/2012 18:40:00) [facility]vlviwpTFKHZBFCOX1979-91-33 23:40:00 Test Item Value Reference Range Interpretation Comments UA Blood (test code = Negative (03/14/2012 N UA Blood) 18:40:00) [id number] 23:40:00 Test Item Value Reference Range Interpretation Comments UA Nitrite (test code Negative (03/14/2012 N = UA Nitrite) 18:40:00) [facility]BjdiacrGETCZSZCMD1233-98-01 23:40:00 Test Item Value Reference Range Interpretation Comments UA Urobilinogen (test code = UA 0.2 0.1-1.0 N Urobilinogen) [facility]WlugfwcSVOBERZCNB4429-18-77 23:40:00 Test Item Value Reference Range Interpretation Comments UA Leuk Est (test Negative (03/14/2012 N code = UA Leuk Est) 18:40:00) [facility]VwmhltjZKRRAPSNFT3672-60-93 23:40:00 Test Item Value Reference Range Interpretation Comments UA Bili (test code = Negative *NA*(03/14/2012 UA Bili) 18:40:00) [facility]HxycivrVHJVILFHKZ9916-15-97 23:40:00 Test Item Value Reference Range Interpretation Comments UA Turbidity (test code = Clear (03/14/2012 N UA Turbidity) 18:40:00) [facility]MxxdwukTMBQUAPRCM2418-50-76 23:40:00 Test Item Value Reference Range Interpretation Comments UA Color (test code = Yellow *NA*(03/14/2012 UA Color) 18:40:00) [facility]UA7200[facility]-74 23:40:00 Test Item Value Reference Range Interpretation Comments UA Spec Grav (test >=1.030 A code = UA Spec Grav) *ABN*(03/14/2012 18:40:00) [facility]MucspzoTRCAXBKXQB1156-76-69 23:40:00 Test Item Value Reference Range Interpretation Comments UA Sq Epi (test code Occasional /LPF N = UA Sq Epi) (03/14/2012 18:40:00) [facility]HaxvbzoWCXJXDJFKF5484-82-41 23:40:00 Test Item Value Reference Range Interpretation Comments UA WBC (test code = UA 3-5 /HPF (03/14/2012 N WBC) 18:40:00) [facility]EzrsnaeSMRIIVJWVF1449-16-00 23:40:00 Test Item Value Reference Range Interpretation Comments UA Bacteria (test code Occasional /HPF N = UA Bacteria) (03/14/2012 18:40:00) [facility]EzydxqxBFDHWNGKWZ0863-38-98 23:40:00 Test Item Value Reference Range Interpretation Comments UA Protein (test code = Trace A UA Protein) *ABN*(03/14/2012 18:40:00) [facility]LhvgygaMAIIEZJEZG5729-28-83 23:40:00 Test Item Value Reference Range Interpretation Comments UA pH (test code = UA pH) 6.0 1 5.0-8.0 N [facility]aLnkzwmmLKEYDDFJRA2786-63-10 23:40:00 Test Item Value Reference Range Interpretation Comments UA Ketones (test code = >=80 mg/dL UA Ketones) *NA*(03/14/2012 18:40:00) [facility]WjdzvhzQQDINOVOAM1987-20-25 23:40:00 Test Item Value Reference Range Interpretation Comments UA Glucose (test code = >=1000 mg/dL A UA Glucose) *ABN*(03/14/2012 18:40:00) [facility]CiarjpeBLUNYIEPQD0840-92-89 23:40:00 Test Item Value Reference Range Interpretation Comments UA Blood (test code = Negative (03/14/2012 N UA Blood) 18:40:00) [facility]aGcthlitCSHHYVSDGS5910-35-34 23:40:00 Test Item Value Reference Range Interpretation Comments UA Nitrite (test code Negative (03/14/2012 N = UA Nitrite) 18:40:00) [facility]ObpyrkwWXPDKVKTOF8419-33-64 23:40:00 Test Item Value Reference Range Interpretation Comments UA Urobilinogen (test code = UA 0.2 0.1-1.0 N Urobilinogen) [facility]VwlpkhpBEAPUDJBIS4929-24-62 23:40:00 Test Item Value Reference Range Interpretation Comments UA Leuk Est (test Negative (03/14/2012 N code = UA Leuk Est) 18:40:00) [facility]WyvpfhgUKXCOJVWJW5470-43-41 23:40:00 Test Item Value Reference Range Interpretation Comments UA Bili (test code = Negative *NA*(03/14/2012 UA Bili) 18:40:00) [facility]JpcldgrYNQKKNMIIY6152-93-01 23:40:00 Test Item Value Reference Range Interpretation Comments UA Turbidity (test code = Clear (03/14/2012 N UA Turbidity) 18:40:00) [facility]aLyocdjpVKDOSOWWYX8638-47-54 23:40:00 Test Item Value Reference Range Interpretation Comments UA Color (test code = Yellow *NA*(03/14/2012 UA Color) 18:40:00) [facility]aKarkznnTRRCWBZUAG1241-78-71 23:40:00 Test Item Value Reference Range Interpretation Comments UA Spec Grav (test >=1.030 A code = UA Spec Grav) *ABN*(03/14/2012 18:40:00) [facility]aEbzwiftJAPCMLPMNJ4283-51-03 23:40:00 Test Item Value Reference Range Interpretation Comments UA Sq Epi (test code Occasional /LPF N = UA Sq Epi) (03/14/2012 18:40:00) [facility]AozksmgONNBCIFNDJ9523-24-41 23:40:00 Test Item Value Reference Range Interpretation Comments UA WBC (test code = UA 3-5 /HPF (03/14/2012 N WBC) 18:40:00) [facility]aFhnrymbFWPOQAXHSC5582-06-85 23:40:00 Test Item Value Reference Range Interpretation Comments UA Bacteria (test code Occasional /HPF N = UA Bacteria) (03/14/2012 18:40:00) [facility]XznmqjeMNMJTZJDXT7222-85-38 23:40:00 Test Item Value Reference Range Interpretation Comments UA Protein (test code = Trace A UA Protein) *ABN*(03/14/2012 18:40:00) [facility]aGquxfelGWPMUQHENV0524-30-12 23:40:00 Test Item Value Reference Range Interpretation Comments UA pH (test code = UA pH) 6.0 1 5.0-8.0 N [facility]WsqxwyjORXRCFIBWM7495-67-29 23:40:00 Test Item Value Reference Range Interpretation Comments UA Ketones (test code = >=80 mg/dL UA Ketones) *NA*(03/14/2012 18:40:00) [facility]aLceduydIITFSPEXPQ6111-81-50 23:40:00 Test Item Value Reference Range Interpretation Comments UA Glucose (test code = >=1000 mg/dL A UA Glucose) *ABN*(03/14/2012 18:40:00) [facility]OvqtcscBRUDTLIHTL5452-37-77 23:40:00 Test Item Value Reference Range Interpretation Comments UA Blood (test code = Negative (03/14/2012 N UA Blood) 18:40:00) [facility]aDctnbdcSWKYDNKUZV1342-25-82 23:40:00 Test Item Value Reference Range Interpretation Comments UA Nitrite (test code Negative (03/14/2012 N = UA Nitrite) 18:40:00) [facility]aPbmmiieMABNYCJSWF2375-80-16 23:40:00 Test Item Value Reference Range Interpretation Comments UA Urobilinogen (test code = UA 0.2 0.1-1.0 N Urobilinogen) [facility]aQrlnvmlEQQGVWEIRH8817-93-76 23:40:00 Test Item Value Reference Range Interpretation Comments UA Leuk Est (test Negative (03/14/2012 N code = UA Leuk Est) 18:40:00) [facility]aAlkqrzqAIJFAOBTXN7220-33-29 23:40:00 Test Item Value Reference Range Interpretation Comments UA Bili (test code = Negative *NA*(03/14/2012 UA Bili) 18:40:00) [facility]aMezjoxkMPIWTNEAXN5916-52-20 23:40:00 Test Item Value Reference Range Interpretation Comments UA Turbidity (test code = Clear (03/14/2012 N UA Turbidity) 18:40:00) [facility]aQuocewsQWOPBRSIKA3072-60-19 23:40:00 Test Item Value Reference Range Interpretation Comments UA Color (test code = Yellow *NA*(03/14/2012 UA Color) 18:40:00) [facility]OuxclbkKRVSRTZVBK3475-64-08 23:40:00 Test Item Value Reference Range Interpretation Comments UA Spec Grav (test >=1.030 A code = UA Spec Grav) *ABN*(03/14/2012 18:40:00) [facility]FfyyvwtKAOEKTXNTZ6170-50-26 23:40:00 Test Item Value Reference Range Interpretation Comments UA Sq Epi (test code Occasional /LPF N = UA Sq Epi) (03/14/2012 18:40:00) [facility]aQrnwdkfSTXXLUYJCI2863-90-08 23:40:00 Test Item Value Reference Range Interpretation Comments UA WBC (test code = UA 3-5 /HPF (03/14/2012 N WBC) 18:40:00) [facility]aOklqztsKVHKZRYCZU3921-82-50 23:40:00 Test Item Value Reference Range Interpretation Comments UA Bacteria (test code Occasional /HPF N = UA Bacteria) (03/14/2012 18:40:00) [facility]aWxzpokkCKNWILKUAY6018-40-57 23:40:00 Test Item Value Reference Range Interpretation Comments UA Protein (test code = Trace A UA Protein) *ABN*(03/14/2012 18:40:00) [facility]EuhnrjgTVUPKQYPZM3344-07-58 23:40:00 Test Item Value Reference Range Interpretation Comments UA pH (test code = UA pH) 6.0 1 5.0-8.0 N [facility]XcaeswrOXCXDSKQRY6190-11-90 23:40:00 Test Item Value Reference Range Interpretation Comments UA Ketones (test code = >=80 mg/dL UA Ketones) *NA*(03/14/2012 18:40:00) [facility]MjoxuqdCHRTQICHKL3031-07-18 23:40:00 Test Item Value Reference Range Interpretation Comments UA Glucose (test code = >=1000 mg/dL A UA Glucose) *ABN*(03/14/2012 18:40:00) [facility]McsdacrYEZBZJJYZA5713-42-77 23:40:00 Test Item Value Reference Range Interpretation Comments UA Blood (test code = Negative (03/14/2012 N UA Blood) 18:40:00) [facility]JsvlvpyCDXKYAHOLM9132-53-85 23:40:00 Test Item Value Reference Range Interpretation Comments UA Nitrite (test code Negative (03/14/2012 N = UA Nitrite) 18:40:00) [facility] AllenImovswhVRKXIZDBYT6276-53-89 23:40:00 Test Item Value Reference Range Interpretation Comments UA Urobilinogen (test code = UA 0.2 0.1-1.0 N Urobilinogen) [facility]aZndqqvsGRPDUSEQIE8984-21-59 23:40:00 Test Item Value Reference Range Interpretation Comments UA Leuk Est (test Negative (03/14/2012 N code = UA Leuk Est) 18:40:00) [facility] AllenHrnuzxdVESMCNHIBH0226-01-92 23:40:00 Test Item Value Reference Range Interpretation Comments UA Bili (test code = Negative *NA*(03/14/2012 UA Bili) 18:40:00) [facility]aZfdbuuxKYVJEABRWR7275-03-62 23:40:00 Test Item Value Reference Range Interpretation Comments UA Turbidity (test code = Clear (03/14/2012 N UA Turbidity) 18:40:00) [facility] AllenSrqukghVDVQTKEZLV4569-94-51 23:40:00 Test Item Value Reference Range Interpretation Comments UA Color (test code = Yellow *NA*(03/14/2012 UA Color) 18:40:00) [facility]aZunktcrGEIBMTIIUA8434-83-38 23:40:00 Test Item Value Reference Range Interpretation Comments UA Spec Grav (test >=1.030 A code = UA Spec Grav) *ABN*(03/14/2012 18:40:00) [facility]QhovnlxFWQSZANFHD3872-25-87 23:40:00 Test Item Value Reference Range Interpretation Comments UA Sq Epi (test code Occasional /LPF N = UA Sq Epi) (03/14/2012 18:40:00) [facility] AllenYjiprwhSRSUNRIMDS6055-92-91 23:40:00 Test Item Value Reference Range Interpretation Comments UA WBC (test code = UA 3-5 /HPF (03/14/2012 N WBC) 18:40:00) [facility] AllenDftqviwSVXVWXHVUN7587-44-69 23:40:00 Test Item Value Reference Range Interpretation Comments UA Bacteria (test code Occasional /HPF N = UA Bacteria) (03/14/2012 18:40:00) [facility] AllenHkurxktUDYPVUEBTD8922-86-78 23:40:00 Test Item Value Reference Range Interpretation Comments UA Protein (test code = Trace A UA Protein) *ABN*(03/14/2012 18:40:00) [facility]OpumvtmYMUVWPBMSH2550-28-77 23:40:00 Test Item Value Reference Range Interpretation Comments UA pH (test code = UA pH) 6.0 1 5.0-8.0 N [facility] AllenUtksgceOXCPFBAYHV7032-68-88 23:40:00 Test Item Value Reference Range Interpretation Comments UA Ketones (test code = >=80 mg/dL UA Ketones) *NA*(03/14/2012 18:40:00) [facility]aWpfobbkOIIDKXTCPU7959-02-05 23:40:00 Test Item Value Reference Range Interpretation Comments UA Glucose (test code = >=1000 mg/dL A UA Glucose) *ABN*(03/14/2012 18:40:00) [facility]PqodnxpSXDEISUSUZ0268-26-11 23:40:00 Test Item Value Reference Range Interpretation Comments UA Blood (test code = Negative (03/14/2012 N UA Blood) 18:40:00) [facility]WerbgtvOHBGYMFFGE8551-42-63 23:40:00 Test Item Value Reference Range Interpretation Comments UA Nitrite (test code Negative (03/14/2012 N = UA Nitrite) 18:40:00) [facility]PcbdwjdXVGSLYTUYL6167-55-61 23:40:00 Test Item Value Reference Range Interpretation Comments UA Urobilinogen (test code = UA 0.2 0.1-1.0 N Urobilinogen) [facility]aYuofigsYKBGKBJNFL3047-52-86 23:40:00 Test Item Value Reference Range Interpretation Comments UA Leuk Est (test Negative (03/14/2012 N code = UA Leuk Est) 18:40:00) [facility] AllenNtoctfkJBZJCWGNPH0792-56-39 23:40:00 Test Item Value Reference Range Interpretation Comments UA Bili (test code = Negative *NA*(03/14/2012 UA Bili) 18:40:00) [facility]aGgzbhkjCGTZDNLVYG5277-35-38 23:40:00 Test Item Value Reference Range Interpretation Comments UA Turbidity (test code = Clear (03/14/2012 N UA Turbidity) 18:40:00) [facility]aZksayomWDYMUINIJV6208-27-23 23:40:00 Test Item Value Reference Range Interpretation Comments UA Color (test code = Yellow *NA*(03/14/2012 UA Color) 18:40:00) [facility]NnqjhfwBIVEWGXVTN9401-56-66 23:40:00 Test Item Value Reference Range Interpretation Comments UA Spec Grav (test >=1.030 A code = UA Spec Grav) *ABN*(03/14/2012 18:40:00) [facility]SagfxfjWELWWJSCPN4503-10-92 23:40:00 Test Item Value Reference Range Interpretation Comments UA Sq Epi (test code Occasional /LPF N = UA Sq Epi) (03/14/2012 18:40:00) [facility]FiiydxpVNUMRCLRZI5374-85-69 23:40:00 Test Item Value Reference Range Interpretation Comments UA WBC (test code = UA 3-5 /HPF (03/14/2012 N WBC) 18:40:00) [facility]aLquenitKUEFOGMGWU0345-46-11 23:40:00 Test Item Value Reference Range Interpretation Comments UA Bacteria (test code Occasional /HPF N = UA Bacteria) (03/14/2012 18:40:00) [facility] AllianceAcrgbnlDYKBETCKL1067-51-16 22:50:00 Test Item Value Reference Range Interpretation Comments S Preg (test code = S Negative *NA*(03/14/2012 Preg) 17:50:00) [facility] AllianceVorqdrgAEDUMIBHW4222-81-44 22:50:00 Test Item Value Reference Range Interpretation Comments Lipase Lvl (test code = Lipase Lvl) 45 73-393 L [facility] AllianceTwxiskfNDCLVETAQ3541-49-21 22:50:00 Test Item Value Reference Range Interpretation Comments A/G Ratio (test code = A/G Ratio) 1.2 0.7-1.6 N [facility] AllianceWczpgzhTXUNDATMF9052-79-60 22:50:00 Test Item Value Reference Range Interpretation Comments Globulin (test code = Globulin) 3.8 2.0-4.0 N [facility] AllianceDopdnlzGVMKZOKWX3061-78-55 22:50:00 Test Item Value Reference Range Interpretation Comments B/C Ratio (test code = B/C Ratio) 21 6-25 N [facility] AllianceQvsbjriONGIFJNID1496-30-19 22:50:00 Test Item Value Reference Range Interpretation Comments AGAP (test code = AGAP) 16.8 10.0-20.0 N [facility] AllianceVvkbjftAEHOPDOUB9241-89-62 22:50:00 Test Item Value Reference Range Interpretation Comments Bili Total (test code = Bili Total) 1.1 0.2-1.3 N [facility] AllianceAcfzlynSWMKPLDBF3211-11-51 22:50:00 Test Item Value Reference Range Interpretation Comments Total Protein (test code = Total 8.2 6.4-8.4 N Protein) [facility] AllianceJyhnzyyPTDVAJKMD5685-99-24 22:50:00 Test Item Value Reference Range Interpretation Comments Potassium Lvl (test code = Potassium 3.8 3.5-5.1 N Lvl) [facility] AllianceJnsxllqAXRNBFUWP6644-42-60 22:50:00 Test Item Value Reference Range Interpretation Comments Creatinine Lvl (test code = Creatinine 0.7 0.5-1.4 N Lvl) [facility] AllianceJfjvextBYSWTIUYT0168-71-04 22:50:00 Test Item Value Reference Range Interpretation Comments Sodium Lvl (test code = Sodium Lvl) 139 135-145 N [facility] AllianceFotwaqhYZUUUCRUV1761-15-00 22:50:00 Test Item Value Reference Range Interpretation Comments Chloride Lvl (test code = Chloride Lvl) 99 95-109 N [facility] AllianceUthnqnzRXHJQYKAB8991-65-37 22:50:00 Test Item Value Reference Range Interpretation Comments CO2 (test code = CO2) 27 24-32 N [facility] AllianceUrwokezPEZPKCCHP8837-11-62 22:50:00 Test Item Value Reference Range Interpretation Comments Glucose Lvl (test code = Glucose Lvl) 301 70-99 H [facility] AllianceHkcygrfBZAKGOKGP2835-53-78 22:50:00 Test Item Value Reference Range Interpretation Comments BUN (test code = BUN) 15 7-22 N [facility] AllianceAyitdbcLWBJJXELS0402-48-74 22:50:00 Test Item Value Reference Range Interpretation Comments ALT (test code = ALT) 24 See_Comment N [Auto mated message] The system which ge nerated this result transmit rohit reference range : <=65. The reference range was not used to interpr et this result as reji l/abnormal. [facility] AllianceSktgbtnQGCRJVWUM0672-25-22 22:50:00 Test Item Value Reference Range Interpretation Comments AST (test code = AST) 20 See_Comment N [Auto mated message] The system which ge nerated this result transmit rohit reference range : <=37. The reference range was not used to interpr et this result as reji l/abnormal. [facility] AllianceUfdnqyxIHLPGTOBG7638-76-93 22:50:00 Test Item Value Reference Range Interpretation Comments Alk Phos (test code = Alk Phos) 67 39-136 N [facility] AllianceAmytdypVDXYNEOWE1658-37-74 22:50:00 Test Item Value Reference Range Interpretation Comments Albumin Lvl (test code = Albumin Lvl) 4.4 3.5-5.0 N [facility] AllianceRfdjvbxZNWEAVMCQ5594-08-27 22:50:00 Test Item Value Reference Range Interpretation Comments Calcium Lvl (test code = Calcium Lvl) 9.9 8.5-10.5 N [facility]UmivxleMQYBJXBIRL7632-62-10 22:50:00 Test Item Value Reference Range Interpretation Comments MPV (test code = MPV) 11.8 7.4-10.4 H [facility] HospitalDaigecrOWEIHRPEFX8343-70-83 22:50:00 Test Item Value Reference Range Interpretation Comments MCHC (test code = MCHC) 35.9 32.0-36.0 N [facility] HospitalBkvhwwdNOCBSQIKXL9357-41-80 22:50:00 Test Item Value Reference Range Interpretation Comments MCH (test code = MCH) 31.2 pg 27.0-31.0 H [facility] HospitalPyqpltkAJSNJUZTEP2086-07-64 22:50:00 Test Item Value Reference Range Interpretation Comments Platelet (test code = Platelet) 189 133-450 N [facility] HospitalCwkiaslBFPQSSPISP6166-26-63 22:50:00 Test Item Value Reference Range Interpretation Comments RDW (test code = RDW) 13.1 11.5-14.5 N [facility] HospitalMuanetaAZLKEAJXTF0226-46-64 22:50:00 Test Item Value Reference Range Interpretation Comments Hct (test code = Hct) 40.7 36.0-48.0 N [facility] HospitalVqnjkaeYWJRFJXUIK1275-37-61 22:50:00 Test Item Value Reference Range Interpretation Comments Hgb (test code = Hgb) 14.6 12.0-16.0 N [facility] HospitalTtspbqtDDFHLAFQZX7365-32-12 22:50:00 Test Item Value Reference Range Interpretation Comments MCV (test code = MCV) 87.0 81.0-99.0 N [facility] HospitalFkpjwrdGLLMDZRLIO0902-06-07 22:50:00 Test Item Value Reference Range Interpretation Comments WBC (test code = WBC) 11.7 3.7-10.4 H [facility] HospitalYpbclrpLTFQZOKYXB3387-83-90 22:50:00 Test Item Value Reference Range Interpretation Comments RBC (test code = RBC) 4.68 4.20-5.40 N [facility] HospitalCzziqglDODILLJZED8689-00-81 22:50:00 Test Item Value Reference Range Interpretation Comments Basophils # (test code 0.0 See_Comment N [Aut omated message] The = Basophils #) system which generated this result tra nsmitted reference range : <=0.2. The reference r leo was not used to int erpret this result as normal/abnormal . [facility] HospitalYjpsgglCVSGHSWEYZ1962-03-97 22:50:00 Test Item Value Reference Range Interpretation Comments Basophils (test code = 0.2 See_Comment N [Aut omated message] The Basophils) system which ge nerated this result tra nsmitted reference range : <=1.0. The reference r leo was not used to int erpret this result as normal/abnormal . [facility] HospitalPtzlsgqJXEXNGFISZ2826-26-74 22:50:00 Test Item Value Reference Range Interpretation Comments Eosinophils # (test code 0.0 See_Comment N [A utomated message] The = Eosinophils #) system whic h generated this result tra nsmitted reference range : <=0.5. The reference r leo was not used to int erpret this result as normal/abnormal . [facility] HospitalTbjkgrvGIOVVHTXME9709-82-64 22:50:00 Test Item Value Reference Range Interpretation Comments Monocytes # (test code 0.4 See_Comment N [Aut omated message] The = Monocytes #) system which generated this result tra nsmitted reference range : <=0.8. The reference r leo was not used to int erpret this result as normal/abnormal . [facility] HospitalAzdfqyzHFDRJCMHLE8957-78-70 22:50:00 Test Item Value Reference Range Interpretation Comments Segs-Bands # (test code = Segs-Bands #) 10.6 1.5-8.1 H [facility] HospitalMxzkuwbGHCDCRGTQK2114-69-72 22:50:00 Test Item Value Reference Range Interpretation Comments Lymphocytes # (test code = Lymphocytes 0.7 1.0-5.5 L #) [facility] HospitalEcmixehZXSESSGMUJ6293-50-90 22:50:00 Test Item Value Reference Range Interpretation Comments Monocytes (test code = Monocytes) 3.4 2.0-12.0 N [facility] HospitalXwhzjraIORUGIFLQR7574-91-44 22:50:00 Test Item Value Reference Range Interpretation Comments Plt Morph (test code = Normal (03/14/2012 N Plt Morph) 17:50:00) [facility] HospitalRhgxzlgCQTHHFWVHA9071-60-06 22:50:00 Test Item Value Reference Range Interpretation Comments Lymphocytes (test code = Lymphocytes) 6.0 20.0-40.0 L [facility] HospitalUdbxvshNKDDBGRSOG4285-87-06 22:50:00 Test Item Value Reference Range Interpretation Comments Eosinophils (test code = 0.0 See_Comment N [A utomated message] The Eosinophils) system which ge nerated this result tra nsmitted reference range : <=4.0. The reference r leo was not used to int erpret this result as normal/abnormal . [facility] HospitalBrsbqmnSCVOKQNHUI0652-36-20 22:50:00 Test Item Value Reference Range Interpretation Comments Segs (test code = Segs) 90.4 45.0-75.0 H [facility] HospitalMehcvmuBUBBHFXGER7060-69-47 22:50:00 Test Item Value Reference Range Interpretation Comments RBC Morph (test code = Normal (03/14/2012 N RBC Morph) 17:50:00) [facility] AllianceRpsoddyUMNOZWMAX6878-95-50 22:50:00 Test Item Value Reference Range Interpretation Comments S Preg (test code = S Negative *NA*(03/14/2012 Preg) 17:50:00) [facility] AllianceMhqjotdKJIIIGBEO5179-65-18 22:50:00 Test Item Value Reference Range Interpretation Comments Lipase Lvl (test code = Lipase Lvl) 45 73-393 L [facility] AllianceZzqhucfWTAFYYIJK1751-71-14 22:50:00 Test Item Value Reference Range Interpretation Comments A/G Ratio (test code = A/G Ratio) 1.2 0.7-1.6 N [facility] AllianceVynvmlvFWKIRSHDI9821-99-23 22:50:00 Test Item Value Reference Range Interpretation Comments Globulin (test code = Globulin) 3.8 2.0-4.0 N [facility] AllianceYioyobkKGYZOCMKR0841-68-85 22:50:00 Test Item Value Reference Range Interpretation Comments B/C Ratio (test code = B/C Ratio) 21 6-25 N [facility] AllianceLpknfnnHWDYKEROE8104-42-90 22:50:00 Test Item Value Reference Range Interpretation Comments AGAP (test code = AGAP) 16.8 10.0-20.0 N [facility] AllianceTvpbxjpNTEJOKLZI5002-09-07 22:50:00 Test Item Value Reference Range Interpretation Comments Bili Total (test code = Bili Total) 1.1 0.2-1.3 N [facility] AllianceRkjxiqxTPDNLJONG4364-57-87 22:50:00 Test Item Value Reference Range Interpretation Comments Total Protein (test code = Total 8.2 6.4-8.4 N Protein) [facility] AllianceQielqzhJOLWNCKTU5970-69-66 22:50:00 Test Item Value Reference Range Interpretation Comments Potassium Lvl (test code = Potassium 3.8 3.5-5.1 N Lvl) [facility] AllianceAcuvggtQGDSBLLEY2156-98-88 22:50:00 Test Item Value Reference Range Interpretation Comments Creatinine Lvl (test code = Creatinine 0.7 0.5-1.4 N Lvl) [facility] AllianceLlrapvvKNEQHSFSM0559-45-32 22:50:00 Test Item Value Reference Range Interpretation Comments Sodium Lvl (test code = Sodium Lvl) 139 135-145 N [facility] AllianceZpyviagNYPFBVYEP6813-01-97 22:50:00 Test Item Value Reference Range Interpretation Comments Chloride Lvl (test code = Chloride Lvl) 99 95-109 N [facility] [facility] AllianceDlsbpgmPOIRLJGEK9659-55-82 22:50:00 Test Item Value Reference Range Interpretation Comments CO2 (test code = CO2) 27 24-32 N [facility] AllianceMergxfoWYSWTTQUX3118-16-91 22:50:00 Test Item Value Reference Range Interpretation Comments Glucose Lvl (test code = Glucose Lvl) 301 70-99 H [facility] AllianceImaxposBVZIIWVNS6865-73-76 22:50:00 Test Item Value Reference Range Interpretation Comments BUN (test code = BUN) 15 7-22 N [facility] AlliancePvnozjlLNWRZLYBZ1042-00-16 22:50:00 Test Item Value Reference Range Interpretation Comments ALT (test code = ALT) 24 See_Comment N [Auto mated message] The system which ge nerated this result transmit rohit reference range : <=65. The reference range was not used to interpr et this result as reji l/abnormal. [facility] AllianceNolygkvCNBYOKKRJ6733-98-84 22:50:00 Test Item Value Reference Range Interpretation Comments AST (test code = AST) 20 See_Comment N [Auto mated message] The system which ge nerated this result transmit rohit reference range : <=37. The reference range was not used to interpr et this result as reji l/abnormal. [facility] AllianceSvaxaekUWOKSYSYQ9102-90-91 22:50:00 Test Item Value Reference Range Interpretation Comments Alk Phos (test code = Alk Phos) 67 39-136 N [facility] AllianceWiqbwqbCDCTNDSFV7895-67-48 22:50:00 Test Item Value Reference Range Interpretation Comments Albumin Lvl (test code = Albumin Lvl) 4.4 3.5-5.0 N [facility] AllianceMhoofjgQBBZCFBWI8283-21-32 22:50:00 Test Item Value Reference Range Interpretation Comments Calcium Lvl (test code = Calcium Lvl) 9.9 8.5-10.5 N [facility]RyjgeewAPYMQKMKCO7000-03-11 22:50:00 Test Item Value Reference Range Interpretation Comments MPV (test code = MPV) 11.8 7.4-10.4 H [facility] HospitalIlntjqmHBWZYQQMTZ3443-42-14 22:50:00 Test Item Value Reference Range Interpretation Comments MCHC (test code = MCHC) 35.9 32.0-36.0 N [facility] HospitalSdsnleqADRJLYWYVS0492-58-72 22:50:00 Test Item Value Reference Range Interpretation Comments MCH (test code = MCH) 31.2 pg 27.0-31.0 H [facility] HospitalAntmmozZEPXQROLFK6379-69-39 22:50:00 Test Item Value Reference Range Interpretation Comments Platelet (test code = Platelet) 189 133-450 N [facility] HospitalHgwfickWFHCNVEYDH4416-38-81 22:50:00 Test Item Value Reference Range Interpretation Comments RDW (test code = RDW) 13.1 11.5-14.5 N [facility] HospitalAhztudzFAVVZXQSCH6034-49-51 22:50:00 Test Item Value Reference Range Interpretation Comments Hct (test code = Hct) 40.7 36.0-48.0 N [facility] HospitalHcgtcziEJNPGAWJUS6188-12-60 22:50:00 Test Item Value Reference Range Interpretation Comments Hgb (test code = Hgb) 14.6 12.0-16.0 N [facility] HospitalOyyfhnuGGUZPOPNHQ8656-55-27 22:50:00 Test Item Value Reference Range Interpretation Comments MCV (test code = MCV) 87.0 81.0-99.0 N [facility] HospitalPygryoaMHUOEQCTAZ9796-91-21 22:50:00 Test Item Value Reference Range Interpretation Comments WBC (test code = WBC) 11.7 3.7-10.4 H [facility] HospitalFsktgyaQNZYDLZYQC9697-43-34 22:50:00 Test Item Value Reference Range Interpretation Comments RBC (test code = RBC) 4.68 4.20-5.40 N [facility] HospitalHqshsybWNSDLXDJIR7858-89-81 22:50:00 Test Item Value Reference Range Interpretation Comments Basophils # (test code 0.0 See_Comment N [Aut omated message] The = Basophils #) system which generated this result tra nsmitted reference range : <=0.2. The reference r leo was not used to int erpret this result as normal/abnormal . [facility] HospitalXsgzgimZUOLQNRDXZ4634-36-27 22:50:00 Test Item Value Reference Range Interpretation Comments Basophils (test code = 0.2 See_Comment N [Aut omated message] The Basophils) system which ge nerated this result tra nsmitted reference range : <=1.0. The reference r leo was not used to int erpret this result as normal/abnormal . [facility] HospitalSitmjkdHTNWGMKIRW4242-21-86 22:50:00 Test Item Value Reference Range Interpretation Comments Eosinophils # (test code 0.0 See_Comment N [A utomated message] The = Eosinophils #) system whic h generated this result tra nsmitted reference range : <=0.5. The reference r leo was not used to int erpret this result as normal/abnormal . [facility] HospitalRjkokbvESKQDVYOBL5101-70-08 22:50:00 Test Item Value Reference Range Interpretation Comments Monocytes # (test code 0.4 See_Comment N [Aut omated message] The = Monocytes #) system which generated this result tra nsmitted reference range : <=0.8. The reference r leo was not used to int erpret this result as normal/abnormal . [facility] HospitalRzfrktzKAMDUYSAOH1455-05-73 22:50:00 Test Item Value Reference Range Interpretation Comments Segs-Bands # (test code = Segs-Bands #) 10.6 1.5-8.1 H [facility] HospitalWfkffuoARLTLCMOBH6956-63-42 22:50:00 Test Item Value Reference Range Interpretation Comments Lymphocytes # (test code = Lymphocytes 0.7 1.0-5.5 L #) [facility] HospitalRgmjqknCMBJZKAPRZ7988-72-10 22:50:00 Test Item Value Reference Range Interpretation Comments Monocytes (test code = Monocytes) 3.4 2.0-12.0 N [facility] HospitalIopkbftDUCMUJUGYK6589-22-39 22:50:00 Test Item Value Reference Range Interpretation Comments Plt Morph (test code = Normal (03/14/2012 N Plt Morph) 17:50:00) [facility] HospitalVgbyrvhNHGAHYGYJJ6803-80-77 22:50:00 Test Item Value Reference Range Interpretation Comments Lymphocytes (test code = Lymphocytes) 6.0 20.0-40.0 L [facility] HospitalAgybueuQBRCHBJNNR6692-08-18 22:50:00 Test Item Value Reference Range Interpretation Comments Eosinophils (test code = 0.0 See_Comment N [A utomated message] The Eosinophils) system which ge nerated this result tra nsmitted reference range : <=4.0. The reference r leo was not used to int erpret this result as normal/abnormal . [facility] HospitalCltpwjxABJQEOUTXV8364-99-63 22:50:00 Test Item Value Reference Range Interpretation Comments Segs (test code = Segs) 90.4 45.0-75.0 H [facility] HospitalRskavxgDIROLMOPAM5971-40-78 22:50:00 Test Item Value Reference Range Interpretation Comments RBC Morph (test code = Normal (03/14/2012 N RBC Morph) 17:50:00) [facility] AllianceEpziatxADMZCOPGH5947-59-06 22:50:00 Test Item Value Reference Range Interpretation Comments S Preg (test code = S Negative *NA*(03/14/2012 Preg) 17:50:00) [facility] AllianceTuhjwymBHOOEXNJV3271-43-94 22:50:00 Test Item Value Reference Range Interpretation Comments Lipase Lvl (test code = Lipase Lvl) 45 73-393 L [facility] AllianceGdxuferIUROGYEYS7408-29-09 22:50:00 Test Item Value Reference Range Interpretation Comments A/G Ratio (test code = A/G Ratio) 1.2 0.7-1.6 N [facility] AllianceFqrimulHFGFJGOGT9643-87-79 22:50:00 Test Item Value Reference Range Interpretation Comments Globulin (test code = Globulin) 3.8 2.0-4.0 N [facility] AllianceGsixpcvHWBKEGSXH7141-79-22 22:50:00 Test Item Value Reference Range Interpretation Comments B/C Ratio (test code = B/C Ratio) 21 6-25 N [facility] AllianceZtetxbvHJCINZOSN2010-03-84 22:50:00 Test Item Value Reference Range Interpretation Comments AGAP (test code = AGAP) 16.8 10.0-20.0 N [facility] AllianceQmowozkASIXDRQIE6900-96-87 22:50:00 Test Item Value Reference Range Interpretation Comments Bili Total (test code = Bili Total) 1.1 0.2-1.3 N [facility] AllianceNuaeodzQSDLSGGUU7062-73-67 22:50:00 Test Item Value Reference Range Interpretation Comments Total Protein (test code = Total 8.2 6.4-8.4 N Protein) [facility] AllianceWsncmraOOHOGEZLC1310-03-45 22:50:00 Test Item Value Reference Range Interpretation Comments Potassium Lvl (test code = Potassium 3.8 3.5-5.1 N Lvl) [facility] AllianceVijdzifMAXXABJDS6809-19-41 22:50:00 Test Item Value Reference Range Interpretation Comments Creatinine Lvl (test code = Creatinine 0.7 0.5-1.4 N Lvl) [facility] AlliancePtmqvomUHSBWEYLY9504-86-58 22:50:00 Test Item Value Reference Range Interpretation Comments Sodium Lvl (test code = Sodium Lvl) 139 135-145 N [facility] AllianceTnmfydtMDMQNZIEV2682-70-25 22:50:00 Test Item Value Reference Range Interpretation Comments Chloride Lvl (test code = Chloride Lvl) 99 95-109 N [facility] AllianceOkloogtDUVJRPWQU3697-30-75 22:50:00 Test Item Value Reference Range Interpretation Comments CO2 (test code = CO2) 27 24-32 N [facility] AllianceHizsxguASVNNNYOS6178-48-98 22:50:00 Test Item Value Reference Range Interpretation Comments Glucose Lvl (test code = Glucose Lvl) 301 70-99 H [facility] AllianceKxyuhncRMISKQPMZ1331-03-68 22:50:00 Test Item Value Reference Range Interpretation Comments BUN (test code = BUN) 15 7-22 N [facility] AllianceGikigssNUZZSKSOP2538-46-50 22:50:00 Test Item Value Reference Range Interpretation Comments ALT (test code = ALT) 24 See_Comment N [Auto mated message] The system which ge nerated this result transmit rohit reference range : <=65. The reference range was not used to interpr et this result as reji l/abnormal. [facility] AllianceJcsnlmuKUGEVVTWT5060-21-23 22:50:00 Test Item Value Reference Range Interpretation Comments AST (test code = AST) 20 See_Comment N [Auto mated message] The system which ge nerated this result transmit rohit reference range : <=37. The reference range was not used to interpr et this result as reji l/abnormal. [facility]anoAxnotviCLDHMAQPO8787-09-29 22:50:00 Test Item Value Reference Range Interpretation Comments Alk Phos (test code = Alk Phos) 67 39-136 N [facility]anoMcrihmwZFVLYPNIH8473-62-88 22:50:00 Test Item Value Reference Range Interpretation Comments Albumin Lvl (test code = Albumin Lvl) 4.4 3.5-5.0 N [facility]anoQldqqllJPPYKPEYX2576-06-02 22:50:00 Test Item Value Reference Range Interpretation Comments Calcium Lvl (test code = Calcium Lvl) 9.9 8.5-10.5 N [facility] HospitalVsaciikDOWHWWXFFF3049-25-83 22:50:00 Test Item Value Reference Range Interpretation Comments MPV (test code = MPV) 11.8 7.4-10.4 H [facility] HospitalScrkfxkTROPOHFZVM7986-88-91 22:50:00 Test Item Value Reference Range Interpretation Comments MCHC (test code = MCHC) 35.9 32.0-36.0 N [facility] PlanoLynepfnPCWIQQRCAX7368-18-28 22:50:00 Test Item Value Reference Range Interpretation Comments MCH (test code = MCH) 31.2 pg 27.0-31.0 H [facility] HospitalPisxgtkDOTPUDDHFY4540-55-52 22:50:00 Test Item Value Reference Range Interpretation Comments Platelet (test code = Platelet) 189 133-450 N [facility] PlanoDwuoeduGUNUYTKEMD1958-09-26 22:50:00 Test Item Value Reference Range Interpretation Comments RDW (test code = RDW) 13.1 11.5-14.5 N [facility] PlanoDcjtsmsLDJQRGKLWT4137-86-83 22:50:00 Test Item Value Reference Range Interpretation Comments Hct (test code = Hct) 40.7 36.0-48.0 N [facility] HospitalBxqilyvJCTQBWGYEV2366-02-39 22:50:00 Test Item Value Reference Range Interpretation Comments Hgb (test code = Hgb) 14.6 12.0-16.0 N [facility] HospitalAijukerGVBWOAILDT9538-17-70 22:50:00 Test Item Value Reference Range Interpretation Comments MCV (test code = MCV) 87.0 81.0-99.0 N [facility] HospitalKjwxtofAXQTECNVOS4716-66-16 22:50:00 Test Item Value Reference Range Interpretation Comments WBC (test code = WBC) 11.7 3.7-10.4 H [facility] HospitalIgpawvbCGDSCEDYQS4144-46-47 22:50:00 Test Item Value Reference Range Interpretation Comments RBC (test code = RBC) 4.68 4.20-5.40 N [facility] HospitalGtqqrbwPKCKMSMZQX7728-49-54 22:50:00 Test Item Value Reference Range Interpretation Comments Basophils # (test code 0.0 See_Comment N [Aut omated message] The = Basophils #) system which generated this result tra nsmitted reference range : <=0.2. The reference r leo was not used to int erpret this result as normal/abnormal . [facility] HospitalBwveugsBGOCKRKJUQ7404-26-36 22:50:00 Test Item Value Reference Range Interpretation Comments Basophils (test code = 0.2 See_Comment N [Aut omated message] The Basophils) system which ge nerated this result tra nsmitted reference range : <=1.0. The reference r leo was not used to int erpret this result as normal/abnormal . [facility] HospitalAqnblpzQDDZUBGMLH7872-97-03 22:50:00 Test Item Value Reference Range Interpretation Comments Eosinophils # (test code 0.0 See_Comment N [A utomated message] The = Eosinophils #) system [facility] h generated this result tra nsmitted reference range : <=0.5. The reference r leo was not used to int erpret this result as normal/abnormal . [facility] HospitalShzcfsuQVDQSRDRKO9443-40-07 22:50:00 Test Item Value Reference Range Interpretation Comments Monocytes # (test code 0.4 See_Comment N [Aut omated message] The = Monocytes #) system which generated this result tra nsmitted reference range : <=0.8. The reference r leo was not used to int erpret this result as normal/abnormal . [facility] HospitalJkblpvbJBUWQBOHBO1612-42-57 22:50:00 Test Item Value Reference Range Interpretation Comments Segs-Bands # (test code = Segs-Bands #) 10.6 1.5-8.1 H [facility] HospitalWsdekhgYHEOBLETWP9966-26-37 22:50:00 Test Item Value Reference Range Interpretation Comments Lymphocytes # (test code = Lymphocytes 0.7 1.0-5.5 L #) [facility] HospitalMdnbeihISRICWIAAC1796-19-63 22:50:00 Test Item Value Reference Range Interpretation Comments Monocytes (test code = Monocytes) 3.4 2.0-12.0 N [facility] HospitalYenxnqlGAZXAHQPRK4098-11-80 22:50:00 Test Item Value Reference Range Interpretation Comments Plt Morph (test code = Normal (03/14/2012 N Plt Morph) 17:50:00) [facility] HospitalOoykjmhJXVJDJLWTZ6631-61-12 22:50:00 Test Item Value Reference Range Interpretation Comments Lymphocytes (test code = Lymphocytes) 6.0 20.0-40.0 L [facility] HospitalKwmkhnnXXPTPGNJSF4276-80-13 22:50:00 Test Item Value Reference Range Interpretation Comments Eosinophils (test code = 0.0 See_Comment N [A utomated message] The Eosinophils) system which ge nerated this result tra nsmitted reference range : <=4.0. The reference r leo was not used to int erpret this result as normal/abnormal . [facility] HospitalDgrwhwoDNWJCZNYIK3450-58-53 22:50:00 Test Item Value Reference Range Interpretation Comments Segs (test code = Segs) 90.4 45.0-75.0 H [facility] HospitalBjoprcoAIJWGJJAWQ0322-29-90 22:50:00 Test Item Value Reference Range Interpretation Comments RBC Morph (test code = Normal (03/14/2012 N RBC Morph) 17:50:00) [facility] AllianceNkjdppcPKLMGAACH1502-19-95 22:50:00 Test Item Value Reference Range Interpretation Comments S Preg (test code = S Negative *NA*(03/14/2012 Preg) 17:50:00) [facility] AllianceYpngdxsJFFSJONHY2536-48-76 22:50:00 Test Item Value Reference Range Interpretation Comments Lipase Lvl (test code = Lipase Lvl) 45 73-393 L [facility] AllianceOwqbanmQAVALSAKT4839-61-25 22:50:00 Test Item Value Reference Range Interpretation Comments A/G Ratio (test code = A/G Ratio) 1.2 0.7-1.6 N [facility] AlliancePmfmiogKCABNWMJO4606-08-90 22:50:00 Test Item Value Reference Range Interpretation Comments Globulin (test code = Globulin) 3.8 2.0-4.0 N [facility] AllianceGzhmkqqOZEOXKXBX1009-25-38 22:50:00 Test Item Value Reference Range Interpretation Comments B/C Ratio (test code = B/C Ratio) 21 6-25 N [facility] AllianceZkwtuegWCBZJUESV4952-31-45 22:50:00 Test Item Value Reference Range Interpretation Comments AGAP (test code = AGAP) 16.8 10.0-20.0 N [facility] AllianceFqxopmjMLDFAAAJK5447-32-33 22:50:00 Test Item Value Reference Range Interpretation Comments Bili Total (test code = Bili Total) 1.1 0.2-1.3 N [facility] AllianceSrpgitoZOQJOJECK8961-16-13 22:50:00 Test Item Value Reference Range Interpretation Comments Total Protein (test code = Total 8.2 6.4-8.4 N Protein) [facility] AllianceFlxmcqiOPEUXOFKX1320-39-25 22:50:00 Test Item Value Reference Range Interpretation Comments Potassium Lvl (test code = Potassium 3.8 3.5-5.1 N Lvl) [facility] AllianceKhgquysEBIUWUBZK1225-02-96 22:50:00 Test Item Value Reference Range Interpretation Comments Creatinine Lvl (test code = Creatinine 0.7 0.5-1.4 N Lvl) [facility] AllianceJuxvnsfRDZJSJUUW5306-82-90 22:50:00 Test Item Value Reference Range Interpretation Comments Sodium Lvl (test code = Sodium Lvl) 139 135-145 N [facility] AllianceTdbcbpvCKVNAOGAN7410-87-99 22:50:00 Test Item Value Reference Range Interpretation Comments Chloride Lvl (test code = Chloride Lvl) 99 95-109 N [facility] AllianceMelmebhXHFDXGBEC9408-80-36 22:50:00 Test Item Value Reference Range Interpretation Comments CO2 (test code = CO2) 27 24-32 N [facility] AllianceFdjsvwhQEKZVFYIA6613-35-44 22:50:00 Test Item Value Reference Range Interpretation Comments Glucose Lvl (test code = Glucose Lvl) 301 70-99 H [facility] AllianceNfucwjrZRSOKATMT7169-83-25 22:50:00 Test Item Value Reference Range Interpretation Comments BUN (test code = BUN) 15 7-22 N [facility]anoBdaeldiSPTRZZTSA5738-26-56 22:50:00 Test Item Value Reference Range Interpretation Comments ALT (test code = ALT) 24 See_Comment N [Auto mated message] The system which ge nerated this result transmit rohit reference range : <=65. The reference range was not used to interpr et this result as reji l/abnormal. [facility] AllianceFonywkiZPLJMEYNF6898-67-64 22:50:00 Test Item Value Reference Range Interpretation Comments AST (test code = AST) 20 See_Comment N [Auto mated message] The system which ge nerated this result transmit rohit reference range : <=37. The reference range was not used to interpr et this result as reji l/abnormal. [facility]anoTxpxhlbUUSMWTEUT7128-25-35 22:50:00 Test Item Value Reference Range Interpretation Comments Alk Phos (test code = Alk Phos) 67 39-136 N [facility] PlanoGgbmageDACPFNMNV5072-66-10 22:50:00 Test Item Value Reference Range Interpretation Comments Albumin Lvl (test code = Albumin Lvl) 4.4 3.5-5.0 N [facility] AllianceXlwfnjxNIDFWFUYJ1514-23-21 22:50:00 Test Item Value Reference Range Interpretation Comments Calcium Lvl (test code = Calcium Lvl) 9.9 8.5-10.5 N [facility] PlanoLtykvxhXLINPXGVTD8356-97-48 22:50:00 Test Item Value Reference Range Interpretation Comments MPV (test code = MPV) 11.8 7.4-10.4 H [facility] HospitalNnnasvmCOPWGIYHAP0006-01-88 22:50:00 Test Item Value Reference Range Interpretation Comments MCHC (test code = MCHC) 35.9 32.0-36.0 N [facility] PlanoSutsmmwVKEBRAKGWN1484-36-41 22:50:00 Test Item Value Reference Range Interpretation Comments MCH (test code = MCH) 31.2 pg 27.0-31.0 H [facility] PlanoZzkcsveVRAZKEWUUM0293-90-57 22:50:00 Test Item Value Reference Range Interpretation Comments Platelet (test code = Platelet) 189 133-450 N [facility] PlanoYwrcbqpSOGOEYDRXJ2238-15-69 22:50:00 Test Item Value Reference Range Interpretation Comments RDW (test code = RDW) 13.1 11.5-14.5 N [facility] PlanoJxafzqvMURCSKIPLJ1758-34-98 22:50:00 Test Item Value Reference Range Interpretation Comments Hct (test code = Hct) 40.7 36.0-48.0 N [facility] HospitalVimvhviXILCQUQMXZ7013-72-92 22:50:00 Test Item Value Reference Range Interpretation Comments Hgb (test code = Hgb) 14.6 12.0-16.0 N [facility] HospitalXcjcjcyQVDNFBFDIC6276-53-54 22:50:00 Test Item Value Reference Range Interpretation Comments MCV (test code = MCV) 87.0 81.0-99.0 N [facility] HospitalIlckzfdNZBIKSGLYG6964-93-07 22:50:00 Test Item Value Reference Range Interpretation Comments WBC (test code = WBC) 11.7 3.7-10.4 H [facility] HospitalUkfsvriLDQFOTUJQO2699-92-75 22:50:00 Test Item Value Reference Range Interpretation Comments RBC (test code = RBC) 4.68 4.20-5.40 N [facility] HospitalZhjbochXJDREEVKPR2177-29-04 22:50:00 Test Item Value Reference Range Interpretation Comments Basophils # (test code 0.0 See_Comment N [Aut omated message] The = Basophils #) system which generated this result tra nsmitted reference range : <=0.2. The reference r leo was not used to int erpret this result as normal/abnormal . [facility] HospitalEozrwumQLTJVXSGGV6100-78-43 22:50:00 Test Item Value Reference Range Interpretation Comments Basophils (test code = 0.2 See_Comment N [Aut omated message] The Basophils) system which ge nerated this result tra nsmitted reference range : <=1.0. The reference r leo was not used to int erpret this result as normal/abnormal . [facility] HospitalMlufxqaRVDCKMSCYG1574-52-63 22:50:00 Test Item Value Reference Range Interpretation Comments Eosinophils # (test code 0.0 See_Comment N [A utomated message] The = Eosinophils #) system whic h generated this result tra nsmitted reference range : <=0.5. The reference r leo was not used to int erpret this result as normal/abnormal . [facility] HospitalPbpejdeYKSCNMGXMH3980-34-94 22:50:00 Test Item Value Reference Range Interpretation Comments Monocytes # (test code 0.4 See_Comment N [Aut omated message] The = Monocytes #) system which generated this result tra nsmitted reference range : <=0.8. The reference r leo was not used to int erpret this result as normal/abnormal . [facility] HospitalRgdlgfmZIPGXNUABP2576-90-54 22:50:00 Test Item Value Reference Range Interpretation Comments Segs-Bands # (test code = Segs-Bands #) 10.6 1.5-8.1 H [facility] HospitalSarxgvoOPXNMGEQMN4485-55-22 22:50:00 Test Item Value Reference Range Interpretation Comments Lymphocytes # (test code = Lymphocytes 0.7 1.0-5.5 L #) [facility] HospitalVdvioraUWLKODIUIM1282-23-04 22:50:00 Test Item Value Reference Range Interpretation Comments Monocytes (test code = Monocytes) 3.4 2.0-12.0 N [facility] HospitalHrgffxcDXNFVDRKJF9435-81-95 22:50:00 Test Item Value Reference Range Interpretation Comments Plt Morph (test code = Normal (03/14/2012 N Plt Morph) 17:50:00) [facility] HospitalSyeznyaVKWSAXKGSH9652-54-48 22:50:00 Test Item Value Reference Range Interpretation Comments Lymphocytes (test code = Lymphocytes) 6.0 20.0-40.0 L [facility] HospitalWxbobhmDTNIHHBQWK9022-45-68 22:50:00 Test Item Value Reference Range Interpretation Comments Eosinophils (test code = 0.0 See_Comment N [A utomated message] The Eosinophils) system which ge nerated this result tra nsmitted reference range : <=4.0. The reference r leo was not used to int erpret this result as normal/abnormal . [facility] HospitalAozdnyzZSOMIRBTER5192-00-21 22:50:00 Test Item Value Reference Range Interpretation Comments Segs (test code = Segs) 90.4 45.0-75.0 H [facility] HospitalEqbowdvPQLXZLVFWY1340-50-24 22:50:00 Test Item Value Reference Range Interpretation Comments RBC Morph (test code = Normal (03/14/2012 N RBC Morph) 17:50:00) [facility] AllianceKcyefrmDVRSESZEK2621-77-98 22:50:00 Test Item Value Reference Range Interpretation Comments S Preg (test code = S Negative *NA*(03/14/2012 Preg) 17:50:00) [facility] AllianceVuvgypbACDZXNFFX3805-50-95 22:50:00 Test Item Value Reference Range Interpretation Comments Lipase Lvl (test code = Lipase Lvl) 45 73-393 L [facility] AllianceZubzdajZVEVHLVOQ2076-47-17 22:50:00 Test Item Value Reference Range Interpretation Comments A/G Ratio (test code = A/G Ratio) 1.2 0.7-1.6 N [facility] AllianceFpfkbqtNUVWDNWJV1306-37-65 22:50:00 Test Item Value Reference Range Interpretation Comments Globulin (test code = Globulin) 3.8 2.0-4.0 N [facility] AllianceMzjzpjsIKFWNDFJU9755-08-23 22:50:00 Test Item Value Reference Range Interpretation Comments B/C Ratio (test code = B/C Ratio) 21 6-25 N [facility] AllianceFyjmieuNNMGCNDKD7386-12-20 22:50:00 Test Item Value Reference Range Interpretation Comments AGAP (test code = AGAP) 16.8 10.0-20.0 N [facility] AllianceVtdlhtlLXWYMOSSE1174-45-51 22:50:00 Test Item Value Reference Range Interpretation Comments Bili Total (test code = Bili Total) 1.1 0.2-1.3 N [facility] AllianceEbkhdiuFWEDSBEUK4559-51-17 22:50:00 Test Item Value Reference Range Interpretation Comments Total Protein (test code = Total 8.2 6.4-8.4 N Protein) [facility] AlliancePkldlurLZGLPHBCG7396-77-35 22:50:00 Test Item Value Reference Range Interpretation Comments Potassium Lvl (test code = Potassium 3.8 3.5-5.1 N Lvl) [facility] AllianceItmcyumKNZOJRWRF0534-09-60 22:50:00 Test Item Value Reference Range Interpretation Comments Creatinine Lvl (test code = Creatinine 0.7 0.5-1.4 N Lvl) [facility] AllianceKodzcnfSUOFGCQJK8569-42-86 22:50:00 Test Item Value Reference Range Interpretation Comments Sodium Lvl (test code = Sodium Lvl) 139 135-145 N [facility] AllianceRofczmoXUJAXYLGB2871-48-44 22:50:00 Test Item Value Reference Range Interpretation Comments Chloride Lvl (test code = Chloride Lvl) 99 95-109 N [facility] AllianceWrbxhhsRCTVQRARO9327-82-13 22:50:00 Test Item Value Reference Range Interpretation Comments CO2 (test code = CO2) 27 24-32 N [facility] AllianceJkuyvdvZUSOIWWPI2807-07-96 22:50:00 Test Item Value Reference Range Interpretation Comments Glucose Lvl (test code = Glucose Lvl) 301 70-99 H [facility] AllianceUwcfdnyTERUCHPRG5312-27-53 22:50:00 Test Item Value Reference Range Interpretation Comments BUN (test code = BUN) 15 7-22 N [facility] AllianceLrgglesGKOLWEKRA3563-21-29 22:50:00 Test Item Value Reference Range Interpretation Comments ALT (test code = ALT) 24 See_Comment N [Auto mated message] The system which ge nerated this result transmit rohit reference range : <=65. The reference range was not used to interpr et this result as reji l/abnormal. [facility] AllianceAsbhjseZIVEFRQPF2424-13-05 22:50:00 Test Item Value Reference Range Interpretation Comments AST (test code = AST) 20 See_Comment N [Auto mated message] The system which ge nerated this result transmit rohit reference range : <=37. The reference range was not used to interpr et this result as reji l/abnormal. [facility] AllianceRfjhyuvQVZZBOPPB4121-22-20 22:50:00 Test Item Value Reference Range Interpretation Comments Alk Phos (test code = Alk Phos) 67 39-136 N [facility] AllianceRlndfzzUGYEFDMCZ0728-51-97 22:50:00 Test Item Value Reference Range Interpretation Comments Albumin Lvl (test code = Albumin Lvl) 4.4 3.5-5.0 N [facility] AllianceGezcxuaREWSTQUNT9496-09-47 22:50:00 Test Item Value Reference Range Interpretation Comments Calcium Lvl (test code = Calcium Lvl) 9.9 8.5-10.5 N [facility] HospitalOipvzelKXHDHEPFTS6047-43-74 22:50:00 Test Item Value Reference Range Interpretation Comments MPV (test code = MPV) 11.8 7.4-10.4 H [facility] HospitalRhuhejbGNOHYRSQHB8789-15-88 22:50:00 Test Item Value Reference Range Interpretation Comments MCHC (test code = MCHC) 35.9 32.0-36.0 N [facility] HospitalYhkztoiFUFCNTFKVO6103-00-12 22:50:00 Test Item Value Reference Range Interpretation Comments MCH (test code = MCH) 31.2 pg 27.0-31.0 H [facility] HospitalFinpdfnTTJCWFKZKH1880-89-45 22:50:00 Test Item Value Reference Range Interpretation Comments Platelet (test code = Platelet) 189 133-450 N [facility] HospitalUmuxvgtGXOXYWRIBF2390-07-50 22:50:00 Test Item Value Reference Range Interpretation Comments RDW (test code = RDW) 13.1 11.5-14.5 N [facility] HospitalEawpttiCRZZMWYHHF8268-36-19 22:50:00 Test Item Value Reference Range Interpretation Comments Hct (test code = Hct) 40.7 36.0-48.0 N [facility] HospitalDkxjengDALXLHZMSS7199-94-13 22:50:00 Test Item Value Reference Range Interpretation Comments Hgb (test code = Hgb) 14.6 12.0-16.0 N [facility] HospitalDyecpxdNLESBEFIJB6360-76-94 22:50:00 Test Item Value Reference Range Interpretation Comments MCV (test code = MCV) 87.0 81.0-99.0 N [facility] HospitalTfhgmteIWBITTXFQA5158-83-20 22:50:00 Test Item Value Reference Range Interpretation Comments WBC (test code = WBC) 11.7 3.7-10.4 H [facility] HospitalMopaobxLUAUAFOPKT6925-50-38 22:50:00 Test Item Value Reference Range Interpretation Comments RBC (test code = RBC) 4.68 4.20-5.40 N [facility] HospitalQkjmctjQXVXTSNGEC9923-87-97 22:50:00 Test Item Value Reference Range Interpretation Comments Basophils # (test code 0.0 See_Comment N [Aut omated message] The = Basophils #) system which generated this result tra nsmitted reference range : <=0.2. The reference r leo was not used to int erpret this result as normal/abnormal . [facility] HospitalRngmjbxFYBHBMRJAQ6634-28-96 22:50:00 Test Item Value Reference Range Interpretation Comments Basophils (test code = 0.2 See_Comment N [Aut omated message] The Basophils) system which ge nerated this result tra nsmitted reference range : <=1.0. The reference r leo was not used to int erpret this result as normal/abnormal . [facility] HospitalUfcajebTSFALFRFPH0092-43-99 22:50:00 Test Item Value Reference Range Interpretation Comments Eosinophils # (test code 0.0 See_Comment N [A utomated message] The = Eosinophils #) system whic h generated this result tra nsmitted reference range : <=0.5. The reference r leo was not used to int erpret this result as normal/abnormal . [facility] HospitalCsvxxapKRUQSDUUUC7275-02-98 22:50:00 Test Item Value Reference Range Interpretation Comments Monocytes # (test code 0.4 See_Comment N [Aut omated message] The = Monocytes #) system which generated this result tra nsmitted reference range : <=0.8. The reference r leo was not used to int erpret this result as normal/abnormal . [facility] HospitalLhigiffHYRYGUNJMW6877-90-20 22:50:00 Test Item Value Reference Range Interpretation Comments Segs-Bands # (test code = Segs-Bands #) 10.6 1.5-8.1 H [facility] HospitalFbzabcdJBBXLMJAJO0418-32-05 22:50:00 Test Item Value Reference Range Interpretation Comments Lymphocytes # (test code = Lymphocytes 0.7 1.0-5.5 L #) [facility] HospitalCohtoetWQKUQNVIXG1674-71-71 22:50:00 Test Item Value Reference Range Interpretation Comments Monocytes (test code = Monocytes) 3.4 2.0-12.0 N [facility] HospitalKcgosolPIGTGTWSYQ5760-85-28 22:50:00 Test Item Value Reference Range Interpretation Comments Plt Morph (test code = Normal (03/14/2012 N Plt Morph) 17:50:00) [facility] HospitalPvjyxhdHWOPLMMDDM3299-37-78 22:50:00 Test Item Value Reference Range Interpretation Comments Lymphocytes (test code = Lymphocytes) 6.0 20.0-40.0 L [facility] HospitalBrangfhPBSSLLQFGC9001-10-34 22:50:00 Test Item Value Reference Range Interpretation Comments Eosinophils (test code = 0.0 See_Comment N [A utomated message] The Eosinophils) system which ge nerated this result tra nsmitted reference range : <=4.0. The reference r leo was not used to int erpret this result as normal/abnormal . [facility] HospitalYtrfqrqGQZORWDWRD7947-87-23 22:50:00 Test Item Value Reference Range Interpretation Comments Segs (test code = Segs) 90.4 45.0-75.0 H [facility] HospitalGryvmeoCEFAAGXRTW8566-67-04 22:50:00 Test Item Value Reference Range Interpretation Comments RBC Morph (test code = Normal (03/14/2012 N RBC Morph) 17:50:00) [facility] GLUCOSE ZWGJWVS8650-77-70 23:43:00 Test Item Value Reference Range Interpretation Comments Gluc POC Lifscn (test code = Gluc POC 167 70-99 H Lifscn) [facility]SE [id number] 23:43:00 Test Item Value Reference Range Interpretation Comments Comment1 (test code = Comment1) Notify RN/ [facility] GL[facility] [id number] 23:43:00 Test Item Value Reference Range Interpretation Comments Comment2 (test code = Comment2) Sliding Scale [facility] GLU[facility]SE [id number] 23:43:00 Test Item Value Reference Range Interpretation Comments Gluc POC Lifscn (test code = Gluc POC 167 70-99 H Lifscn) [facility] GLU[facility]SE [id number] 23:43:00 Test Item Value Reference Range Interpretation Comments Comment1 (test code = Comment1) Notify RN/ [facility] GLUCOSE [id number] 23:43:00 Test Item Value Reference Range Interpretation Comments Comment2 (test code = Comment2) Sliding Scale [facility] GLUCOSE HBBKMVD6398-77-28 23:43:00 Test Item Value Reference Range Interpretation Comments Gluc POC Lifscn (test code = Gluc POC 167 70-99 H Lifscn) [facility] GLUCOSE [id number] 23:43:00 Test Item Value Reference Range Interpretation Comments Comment1 (test code = Comment1) Notify RN/ [facility] GLUCOSE [id number] 23:43:00 Test Item Value Reference Range Interpretation Comments Comment2 (test code = Comment2) Sliding Scale [facility] GLUCOSE [id number] 23:43:00 Test Item Value Reference Range Interpretation Comments Gluc POC Lifscn (test code = Gluc POC 167 70-99 H Lifscn) [facility] GLUCOSE [id number] 23:43:00 Test Item Value Reference Range Interpretation Comments Comment1 (test code = Comment1) Notify TABATHA/ [facility] GLUCOSE [id number] 23:43:00 Test Item Value Reference Range Interpretation Comments Comment2 (test code = Comment2) Sliding Scale [facility] GLUCOSE [id number] 23:43:00 Test Item Value Reference Range Interpretation Comments Gluc POC Lifscn (test code = Gluc POC 167 70-99 H Lifscn) [facility] GLUCOSE [id number] 23:43:00 Test Item Value Reference Range Interpretation Comments Comment1 (test code = Comment1) [facility]/ [facility] GLUCOSE [id number] 23:43:00 Test Item Value Reference Range Interpretation Comments Comment2 (test code = Comment2) Sliding Scale [facility] GLUCOSE [id number] 17:40:00 Test Item Value Reference Range Interpretation Comments Gluc POC Lifscn (test code = Gluc POC 189 70-99 H Lifscn) [facility] GLUCOSE [id number] 17:40:00 Test Item Value Reference Range Interpretation Comments Comment1 (test code = Comment1) [facility] RN/ [facility] GLU[facility]SE [id number] 17:40:00 Test Item Value Reference Range Interpretation Comments Comment2 (test code = Comment2) Sliding Scale [facility] GLUCOSE [id number] 17:40:00 Test Item Value Reference Range Interpretation Comments Gluc POC Lifscn (test code = Gluc POC 189 70-99 H Lifscn) [facility] GLUCOSE [id number] 17:40:00 Test Item Value Reference Range Interpretation Comments Comment1 (test code = Comment1) [facility] RN/ [facility] GLU[facility]SE [id number] 17:40:00 Test Item Value Reference Range Interpretation Comments Comment2 (test code = Comment2) Sliding Scale [facility] GLUCOSE [id number] 17:40:00 Test Item Value Reference Range Interpretation Comments Gluc POC Lifscn (test code = Gluc POC 189 70-99 H Lifscn) [facility] GLUCOSE [id number] 17:40:00 Test Item Value Reference Range Interpretation Comments Comment1 (test code = Comment1) Not[facility] RN/ [facility] GLUCOSE [id number] 17:40:00 Test Item Value Reference Range Interpretation Comments Comment2 (test code = Comment2) Sliding Scale [facility] GLUCOSE [id number] 17:40:00 Test Item Value Reference Range Interpretation Comments Gluc POC Lifscn (test code = Gluc POC 189 70-99 H Lifscn) [facility] GLUCOSE [id number] 17:40:00 Test Item Value Reference Range Interpretation Comments Comment1 (test code = Comment1) [facility] RN/ [facility] GLUCOSE [id number] 17:40:00 Test Item Value Reference Range Interpretation Comments Comment2 (test code = Comment2) Sliding Scale [facility] GLUCOSE [id number] 17:40:00 Test Item Value Reference Range Interpretation Comments Gluc POC Lifscn (test code = Gluc POC 189 70-99 H Lifscn) [facility] GLUCOSE [id number] 17:40:00 Test Item Value Reference Range Interpretation Comments Comment1 (test code = Comment1) [facility] RN/ [facility] GLUCOSE [id number] 17:40:00 Test Item Value Reference Range Interpretation Comments Comment2 (test code = Comment2) Sliding Scale [facility] GLUCOSE [id number] 13:34:00 Test Item Value Reference Range Interpretation Comments Comment2 (test code = Comment2) Sliding Scale [facility] GLUCOSE [id number] 13:34:00 Test Item Value Reference Range Interpretation Comments Gluc POC Lifscn (test code = Gluc POC 110 70-99 H Lifscn) [facility] GLU[facility]SE [id number] 13:34:00 Test Item Value Reference Range Interpretation Comments Comment1 (test code = Comment1) [facility] RN/ [facility] GLUCOSE [id number] 13:34:00 Test Item Value Reference Range Interpretation Comments Comment2 (test code = Comment2) Sliding Scale [facility] GLUCOSE [id number] 13:34:00 Test Item Value Reference Range Interpretation Comments Gluc POC Lifscn (test code = Gluc POC 110 70-99 H Lifscn) [facility] GLUCOSE [id number] 13:34:00 Test Item Value Reference Range Interpretation Comments Comment1 (test code = Comment1) Notify RN/ [facility] GLUCOSE [id number] 13:34:00 Test Item Value Reference Range Interpretation Comments Comment2 (test code = Comment2) Sliding Scale [facility] GLUCOSE [id number] 13:34:00 Test Item Value Reference Range Interpretation Comments Gluc POC Lifscn (test code = Gluc POC 110 70-99 H Lifscn) [facility] GLUCOSE [id number] 13:34:00 Test Item Value Reference Range Interpretation Comments Comment1 (test code = Comment1) [facility] RN/ [facility] GLUCOSE [id number] 13:34:00 Test Item Value Reference Range Interpretation Comments Comment2 (test code = Comment2) Sliding Scale [facility] GLUCOSE [id number] 13:34:00 Test Item Value Reference Range Interpretation Comments Gluc POC Lifscn (test code = Gluc POC 110 70-99 H Lifscn) [facility] GLUCOSE [id number] 13:34:00 Test Item Value Reference Range Interpretation Comments Comment1 (test code = Comment1) Notify RN/ [facility] GLUCOSE [id number] 13:34:00 Test Item Value Reference Range Interpretation Comments Comment2 (test code = Comment2) Sliding Scale [facility] GLUCOSE [id number] 13:34:00 Test Item Value Reference Range Interpretation Comments Gluc POC Lifscn (test code = Gluc POC 110 70-99 H Lifscn) [facility] GLUCOSE [id number] 13:34:00 Test Item Value Reference Range Interpretation Comments Comment1 (test code = Comment1) Notify RN/ [facility] PlanoKedmedtLJXINSAKH8130-21-95 00:00:00 Test Item Value Reference Range Interpretation Comments U Preg (test code = U Negative (11/28/2011 N Preg) 19:00:00) [facility] PlanoBayljyqQKKMYKQBML9987-85-35 00:00:00 Test Item Value Reference Range Interpretation Comments Micro? (test code = Performed (11/28/2011 N Micro?) 19:00:00) [facility] PlanoBareuhhNERNDHVEDJ4995-54-20 00:00:00 Test Item Value Reference Range Interpretation Comments UA Sq Epi (test code Occasional /LPF N = UA Sq Epi) (11/28/2011 19:00:00) [facility] PlanoVelrlogCOCXFFBSVQ8970-84-41 00:00:00 Test Item Value Reference Range Interpretation Comments UA RBC (test None Seen See_Comment N [Automated mes pastor] code = UA RBC) (11/28/2011 The system wh ich 19:00:00) generated this result transmitted ref erence range: <=2. The reference range was not used to int erpret this result as normal/abnormal . [facility]TwoajlaLFOAFYOELH3137-[facility]-06 00:00:00 Test Item Value Reference Range Interpretation Comments UA WBC (test code Occasional See_Comment [Automate d message] The = UA WBC) system which ge nerated this result tra nsmitted reference range : <=5. The reference range was not used to interpr et this result as normal/abnormal . [facility]OgcpsqmRLALNFBSZW8713-34-01 00:00:00 Test Item Value Reference Range Interpretation Comments UA Protein (test code Negative mg/dL N = UA Protein) (11/28/2011 19:00:00) [facility]aNtlcfocLXHRTCFDJU0770-64-07 00:00:00 Test Item Value Reference Range Interpretation Comments UA pH (test code = UA pH) 7.0 1 5.0-8.0 N [facility]aMmfvlwqSUIUFTUEEP4914-76-20 00:00:00 Test Item Value Reference Range Interpretation Comments UA Spec Grav (test code = UA Spec 1.020 1 N Grav) [facility]aMjgigqgLOMTNEIMQK7804-83-05 00:00:00 Test Item Value Reference Range Interpretation Comments UA Turbidity (test code = Clear (11/28/2011 N UA Turbidity) 19:00:00) [facility]XclusvkAJIYDHHBBD2699-95-06 00:00:00 Test Item Value Reference Range Interpretation Comments UA Color (test code = Yellow *NA*(11/28/2011 UA Color) 19:00:00) [facility]aQcbeygpRMJMZLAOOC5337-27-76 00:00:00 Test Item Value Reference Range Interpretation Comments UA Urobilinogen (test code = UA 0.2 0.1-1.0 N Urobilinogen) [facility]aJjdsbtxVACXTLOGQV0962-07-63 00:00:00 Test Item Value Reference Range Interpretation Comments UA Blood (test code = Negative (11/28/2011 N UA Blood) 19:00:00) [facility]aleUsuwtdyVAXYJUHSAD7170-63-87 00:00:00 Test Item Value Reference Range Interpretation Comments UA Bili (test code = Negative *NA*(11/28/2011 UA Bili) 19:00:00) [facility]ZyjdfijTSOYDUWUBS5774-30-99 00:00:00 Test Item Value Reference Range Interpretation Comments UA Ketones (test code = >=80 mg/dL A UA Ketones) *ABN*(11/28/2011 19:00:00) [facility]valeHsyjtevZLISTGCXVW5399-43-88 00:00:00 Test Item Value Reference Range Interpretation Comments UA Glucose (test code = >=1000 mg/dL A UA Glucose) *ABN*(11/28/2011 19:00:00) [facility]valeZtffczoRRGYOCBEJJ2629-39-24 00:00:00 Test Item Value Reference Range Interpretation Comments UA Nitrite (test code Negative (11/28/2011 N = UA Nitrite) 19:00:00) [facility] PlanoZsnunehTRDEUFQVDO6857-75-53 00:00:00 Test Item Value Reference Range Interpretation Comments UA Leuk Est (test Negative (11/28/2011 N code = UA Leuk Est) 19:00:00) [facility]valeKeseqmoKFGREJUWQ5217-24-26 00:00:00 Test Item Value Reference Range Interpretation Comments U Preg (test code = U Negative (11/28/2011 N Preg) 19:00:00) [facility]ZtkbdkaCYUQTGHDHL7657-00-77 00:00:00 Test Item Value Reference Range Interpretation Comments Micro? (test code = Performed (11/28/2011 N Micro?) 19:00:00) [facility]valeWgnwsuqKDWOVAKBXQ1342-29-34 00:00:00 Test Item Value Reference Range Interpretation Comments UA Sq Epi (test code Occasional /LPF N = UA Sq Epi) (11/28/2011 19:00:00) [facility]valeYletvbmCUDHFGWHIL0060-64-31 00:00:00 Test Item Value Reference Range Interpretation Comments UA RBC (test None Seen See_Comment N [Automated mes pastor] code = UA RBC) (11/28/2011 The system ich 19:00:00) generated this result transmitted ref erence range: <=2. The reference range was not used to int erpret this result as normal/abnormal . [facility] PlanoPcbnczpDUYMCORFOR7292-07-11 00:00:00 Test Item Value Reference Range Interpretation Comments UA WBC (test code Occasional See_Comment [Automate d message] The = UA WBC) system which ge nerated this result tra nsmitted reference range : <=5. The reference range was not used to interpr et this result as normal/abnormal . [facility] SunnyvaleFqgihtyJHEERNCKEX3051-01-80 00:00:00 Test Item Value Reference Range Interpretation Comments UA Protein (test code Negative mg/dL N = UA Protein) (11/28/2011 19:00:00) [facility]UotnhlqFAQGUCRHVZ1452-64-10 00:00:00 Test Item Value Reference Range Interpretation Comments UA pH (test code = UA pH) 7.0 1 5.0-8.0 N [facility]aFmfotdwWDRPXEQCWG1869-49-22 00:00:00 Test Item Value Reference Range Interpretation Comments UA Spec Grav (test code = UA Spec 1.020 1 N Grav) [facility]aBttwinzPJXLTCOITQ5134-91-81 00:00:00 Test Item Value Reference Range Interpretation Comments UA Turbidity (test code = Clear (11/28/2011 N UA Turbidity) 19:00:00) [facility]aLszkzkfKMWYOPNJOT6801-70-95 00:00:00 Test Item Value Reference Range Interpretation Comments UA Color (test code = Yellow *NA*(11/28/2011 UA Color) 19:00:00) [facility]aQgflqhgHZUPIXBQWH8724-45-88 00:00:00 Test Item Value Reference Range Interpretation Comments UA Urobilinogen (test code = UA 0.2 0.1-1.0 N Urobilinogen) [facility]aKedpsodKWYFLKHKBP0749-16-94 00:00:00 Test Item Value Reference Range Interpretation Comments UA Blood (test code = Negative (11/28/2011 N UA Blood) 19:00:00) [facility]aXsgdbaxMQUFQNVWLO9790-88-71 00:00:00 Test Item Value Reference Range Interpretation Comments UA Bili (test code = Negative *NA*(11/28/2011 UA Bili) 19:00:00) [facility]aUvyroinVYLHASEWDZ1277-89-70 00:00:00 Test Item Value Reference Range Interpretation Comments UA Ketones (test code = >=80 mg/dL A UA Ketones) *ABN*(11/28/2011 19:00:00) [facility]kpuwMWDOISFJGH3948-96-99 [facility]:00 Test Item Value Reference Range Interpretation Comments UA Glucose (test code = >=1000 mg/dL A UA Glucose) *ABN*(11/28/2011 19:00:00) [facility]NgblkggHFMGYBFDBV5531-99-19 00:00:00 Test Item Value Reference Range Interpretation Comments UA Nitrite (test code Negative (11/28/2011 N = UA Nitrite) 19:00:00) [facility]MnklwdxNPZTBPMISQ4794-20-07 00:00:00 Test Item Value Reference Range Interpretation Comments UA Leuk Est (test Negative (11/28/2011 N code = UA Leuk Est) 19:00:00) [facility]anoNmtsncfIHTWHDAYS3543-78-13 00:00:00 Test Item Value Reference Range Interpretation Comments U Preg (test code = U Negative (11/28/2011 N Preg) 19:00:00) [facility]anoKafykdgMMLVJBQSSO3802-05-74 00:00:00 Test Item Value Reference Range Interpretation Comments Micro? (test code = Performed (11/28/2011 N Micro?) 19:00:00) [facility]aleEujqgmwQHGHYIMEEM8578-66-57 00:00:00 Test Item Value Reference Range Interpretation Comments UA Sq Epi (test code Occasional /LPF N = UA Sq Epi) (11/28/2011 19:00:00) [facility]aleIzpkdviFUYWLRPQKH4160-86-83 00:00:00 Test Item Value Reference Range Interpretation Comments UA RBC (test None Seen See_Comment N [Automated mes pastor] code = UA RBC) (11/28/2011 The system wh ich 19:00:00) generated this result transmitted ref erence range: <=2. The reference range was not used to int erpret this result as normal/abnormal . [facility]valeRotkfjaFBXSHOHZFD3692-38-94 00:00:00 Test Item Value Reference Range Interpretation Comments UA WBC (test code Occasional See_Comment [Automate d message] The = UA WBC) system which ge nerated this result tra nsmitted reference range : <=5. The reference range was not used to interpr et this result as normal/abnormal . [facility]anoCptvaxoQLXVLECRZU1024-18-33 00:00:00 Test Item Value Reference Range Interpretation Comments UA Protein (test code Negative mg/dL N = UA Protein) (11/28/2011 19:00:00) [facility]aleFsfjcvrVDJCQQRQSG2920-85-62 00:00:00 Test Item Value Reference Range Interpretation Comments UA pH (test code = UA pH) 7.0 1 5.0-8.0 N [facility]anoHnirahvTJJGSJBQDQ8736-91-90 00:00:00 Test Item Value Reference Range Interpretation Comments UA Spec Grav (test code = UA Spec 1.020 1 N Grav) [facility] SunnyvaleLucaoocFSHTNTDKTL8025-13-72 00:00:00 Test Item Value Reference Range Interpretation Comments UA Turbidity (test code = Clear (11/28/2011 N UA Turbidity) 19:00:00) [facility]klJGLZMLADOK1886-19-55 [facility]:00:00 Test Item Value Reference Range Interpretation Comments UA Color (test code = Yellow *NA*(11/28/2011 UA Color) 19:00:00) [facility]IidzehmJWMWOGBTTO7794-23-97 00:00:00 Test Item Value Reference Range Interpretation Comments UA Urobilinogen (test code = UA 0.2 0.1-1.0 N Urobilinogen) [facility]UsscqwxIPRYHVNBQK5606-50-26 00:00:00 Test Item Value Reference Range Interpretation Comments UA Blood (test code = Negative (11/28/2011 N UA Blood) 19:00:00) [facility]HfhksscKGXMSYJFFQ1429-39-38 00:00:00 Test Item Value Reference Range Interpretation Comments UA Bili (test code = Negative *NA*(11/28/2011 UA Bili) 19:00:00) [facility]aleMnjlsidILSMVSWRPO9247-64-40 00:00:00 Test Item Value Reference Range Interpretation Comments UA Ketones (test code = >=80 mg/dL A UA Ketones) *ABN*(11/28/2011 19:00:00) [facility]alePulxmoaJJHHLASCTS2571-96-62 00:00:00 Test Item Value Reference Range Interpretation Comments UA Glucose (test code = >=1000 mg/dL A UA Glucose) *ABN*(11/28/2011 19:00:00) [facility]aleTindjqnOOIKQYOUJV3289-06-64 00:00:00 Test Item Value Reference Range Interpretation Comments UA Nitrite (test code Negative (11/28/2011 N = UA Nitrite) 19:00:00) [facility]aleQjekzqvFUSUYJWHOD8122-74-56 00:00:00 Test Item Value Reference Range Interpretation Comments UA Leuk Est (test Negative (11/28/2011 N code = UA Leuk Est) 19:00:00) [facility]alePuidrusPJVWYGGGN8770-00-73 00:00:00 Test Item Value Reference Range Interpretation Comments U Preg (test code = U Negative (11/28/2011 N Preg) 19:00:00) [facility]HwwswopCCELXYUISN9750-27-65 00:00:00 Test Item Value Reference Range Interpretation Comments Micro? (test code = Performed (11/28/2011 N Micro?) 19:00:00) [facility]HvhbroqCMKENMIJCH7171-30-67 00:00:00 Test Item Value Reference Range Interpretation Comments UA Sq Epi (test code Occasional /LPF N = UA Sq Epi) (11/28/2011 19:00:00) [facility]aUrrkdjtFKEKMZWXKF4291-79-17 00:00:00 Test Item Value Reference Range Interpretation Comments UA RBC (test None Seen See_Comment N [Automated mes pastor] code = UA RBC) (11/28/2011 The system wh ich 19:00:00) generated this result transmitted ref erence range: <=2. The reference range was not used to int erpret this result as normal/abnormal . [facility]aZqcxtyxHQBXMCNBIN4950-58-24 00:00:00 Test Item Value Reference Range Interpretation Comments UA WBC (test code Occasional See_Comment [Automate d message] The = UA WBC) system which ge nerated this result tra nsmitted reference range : <=5. The reference range was not used to interpr et this result as normal/abnormal . [facility] AllenFhsqdukNYAUKNAULD6768-39-48 00:00:00 Test Item Value Reference Range Interpretation Comments UA Protein (test code Negative mg/dL N = UA Protein) (11/28/2011 19:00:00) [facility] AllenQeercrgHLDEHYFIPE2410-87-97 00:00:00 Test Item Value Reference Range Interpretation Comments UA pH (test code = UA pH) 7.0 1 5.0-8.0 N [facility] AllenImmejpsMZZQHVVITG2333-46-24 00:00:00 Test Item Value Reference Range Interpretation Comments UA Spec Grav (test code = UA Spec 1.020 1 N Grav) [facility] AllenVoosqjoKIYSQOSYEQ5709-81-02 00:00:00 Test Item Value Reference Range Interpretation Comments UA Turbidity (test code = Clear (11/28/2011 N UA Turbidity) 19:00:00) [facility] AllenNvmqgvvHVSEGYJXHO5903-79-16 00:00:00 Test Item Value Reference Range Interpretation Comments UA Color (test code = Yellow *NA*(11/28/2011 UA Color) 19:00:00) [facility]aleVbqzqavVRKQJMUIXN5299-41-55 00:00:00 Test Item Value Reference Range Interpretation Comments UA Urobilinogen (test code = UA 0.2 0.1-1.0 N Urobilinogen) [facility] AllenHdfgiaeRANACLOCOS7947-58-50 00:00:00 Test Item Value Reference Range Interpretation Comments UA Blood (test code = Negative (11/28/2011 N UA Blood) 19:00:00) [facility]aleEnfhsvlATRXIJWQKP3508-50-09 00:00:00 Test Item Value Reference Range Interpretation Comments UA Bili (test code = Negative *NA*(11/28/2011 UA Bili) 19:00:00) [facility]aleGkznlwlQPCSAZVOUP3081-26-23 00:00:00 Test Item Value Reference Range Interpretation Comments UA Ketones (test code = >=80 mg/dL A UA Ketones) *ABN*(11/28/2011 19:00:00) [facility] AllenDzqxshaRSILBWQQNM8330-03-72 00:00:00 Test Item Value Reference Range Interpretation Comments UA Glucose (test code = >=1000 mg/dL A UA Glucose) *ABN*(11/28/2011 19:00:00) [facility]aleShvedxuBFIKBFVHJV6713-30-77 00:00:00 Test Item Value Reference Range Interpretation Comments UA Nitrite (test code Negative (11/28/2011 N = UA Nitrite) 19:00:00) [facility]aleHqvscxvQNUPTNBQBY5168-94-66 00:00:00 Test Item Value Reference Range Interpretation Comments UA Leuk Est (test Negative (11/28/2011 N code = UA Leuk Est) 19:00:00) [facility]valeLijjavzLNDKBZGAZ0416-45-73 00:00:00 Test Item Value Reference Range Interpretation Comments U Preg (test code = U Negative (11/28/2011 N Preg) 19:00:00) [facility]alePzpytvxLRVMCXUTWU6694-97-11 00:00:00 Test Item Value Reference Range Interpretation Comments Micro? (test code = Performed (11/28/2011 N Micro?) 19:00:00) [facility] AllenVprjpuzVQPEYBWKFI4233-27-89 00:00:00 Test Item Value Reference Range Interpretation Comments UA Sq Epi (test code Occasional /LPF N = UA Sq Epi) (11/28/2011 19:00:00) [facility] AllenFztpeweQDTYHZALES4979-58-69 00:00:00 Test Item Value Reference Range Interpretation Comments UA RBC (test None Seen See_Comment N [Automated mes pastor] code = UA RBC) (11/28/2011 The system wh ich 19:00:00) generated this result transmitted ref erence range: <=2. The reference range was not used to int erpret this result as normal/abnormal . [facility] AllenNdnoszlFJKLMJAULA8782-13-79 00:00:00 Test Item Value Reference Range Interpretation Comments UA WBC (test code Occasional See_Comment [Automate d message] The = UA WBC) system which ge nerated this result tra nsmitted reference range : <=5. The reference range was not used to interpr et this result as normal/abnormal . [facility] AllenOwywhahJXVKODINHE1489-78-17 00:00:00 Test Item Value Reference Range Interpretation Comments UA Protein (test code Negative mg/dL N = UA Protein) (11/28/2011 19:00:00) [facility] AllenWncmxtzPMKKGIWWDA7256-51-22 00:00:00 Test Item Value Reference Range Interpretation Comments UA pH (test code = UA pH) 7.0 1 5.0-8.0 N [facility]aleDchmdscHJRSPMPDCX2227-09-31 00:00:00 Test Item Value Reference Range Interpretation Comments UA Spec Grav (test code = UA Spec 1.020 1 N Grav) [facility] AllenWytjoimQASXGABXVH7284-52-25 00:00:00 Test Item Value Reference Range Interpretation Comments UA Turbidity (test code = Clear (11/28/2011 N UA Turbidity) 19:00:00) [facility] AllenQrgkxzvNLRSBZSZCX8305-22-21 00:00:00 Test Item Value Reference Range Interpretation Comments UA Color (test code = Yellow *NA*(11/28/2011 UA Color) 19:00:00) [facility] AllenXbdmlklKCGTAVFRDS4117-77-16 00:00:00 Test Item Value Reference Range Interpretation Comments UA Urobilinogen (test code = UA 0.2 0.1-1.0 N Urobilinogen) [facility] AllenTrbnsdcSRKWZPGHXH8789-49-08 00:00:00 Test Item Value Reference Range Interpretation Comments UA Blood (test code = Negative (11/28/2011 N UA Blood) 19:00:00) [facility]aleDppgsuzJWPGCSYGUW1617-96-44 00:00:00 Test Item Value Reference Range Interpretation Comments UA Bili (test code = Negative *NA*(11/28/2011 UA Bili) 19:00:00) [facility] AllenCsraoklKAWURXFUWE3380-50-03 00:00:00 Test Item Value Reference Range Interpretation Comments UA Ketones (test code = >=80 mg/dL A UA Ketones) *ABN*(11/28/2011 19:00:00) [facility] AllenNdripjjMQWWCPXIRY1435-49-29 00:00:00 Test Item Value Reference Range Interpretation Comments UA Glucose (test code = >=1000 mg/dL A UA Glucose) *ABN*(11/28/2011 19:00:00) [facility] AllenRfajokiOGIAFXJNZF4407-58-96 00:00:00 Test Item Value Reference Range Interpretation Comments UA Nitrite (test code Negative (11/28/2011 N = UA Nitrite) 19:00:00) [facility]XdvgxvyUFXCQDWIYO0899-39-46 00:00:00 Test Item Value Reference Range Interpretation Comments UA Leuk Est (test Negative (11/28/2011 N code = UA Leuk Est) 19:00:00) [facility] AllianceSmgufkhIPBVYDZHA3637-31-05 20:41:00 Test Item Value Reference Range Interpretation Comments pO2 Roberth (test code = pO2 Roberth) 60 20-49 H [facility] AllianceBaiclvvODCLJMADX6168-06-82 20:41:00 Test Item Value Reference Range Interpretation Comments pCO2 Roberth (test code = pCO2 Roberth) 41 38-52 N [facility] AllianceRajkygjSKKXUKNJR1195-97-12 20:41:00 Test Item Value Reference Range Interpretation Comments pH Roberth (test code = pH Roberth) 7.45 7.28-7.42 H [facility] AllianceNovxrlqIQIUDPYPG0802-95-50 20:41:00 Test Item Value Reference Range Interpretation Comments Temp Roberth (test code = Temp Roberth) 37.0 [facility] AllianceBoapqlxNQAMELEPV8487-68-58 20:41:00 Test Item Value Reference Range Interpretation Comments O2 Sat Roberth (test code = O2 Sat Roberth) 92.0 40.0-70.0 H [facility] AllianceIizituuFKKONMXDB5607-94-30 20:41:00 Test Item Value Reference Range Interpretation Comments BE Roberth (test code = 4 See_Comment H [Automa rohit message] The BE Roberth) system which ge nerated this result transmit rohit reference range : <=2. The reference range was not used to interpr et this result as reji l/abnormal. [facility]anoLdnoextHJZNBTESZ1110-78-85 20:41:00 Test Item Value Reference Range Interpretation Comments HCO3 Roberth (test code = HCO3 Roberth) 28.5 22.0-26.0 H [facility] AllianceIulenjeMFQISACST2603-95-02 20:41:00 Test Item Value Reference Range Interpretation Comments pO2 Roberth (test code = pO2 Roberth) 60 20-49 H [facility] AllianceClkeyciDUYWHRWLR5224-19-15 20:41:00 Test Item Value Reference Range Interpretation Comments pCO2 Roberth (test code = pCO2 Roberth) 41 38-52 N [facility] AllianceQvlpcmoGURDFOCFN0751-92-94 20:41:00 Test Item Value Reference Range Interpretation Comments pH Roberth (test code = pH Roberth) 7.45 7.28-7.42 H [facility] PlanoBnhufcjQZSHLKGSK4223-99-07 20:41:00 Test Item Value Reference Range Interpretation Comments Temp Roberth (test code = Temp Roberth) 37.0 [facility] PlanoDcqnzefCOWHSDNLZ1163-94-98 20:41:00 Test Item Value Reference Range Interpretation Comments O2 Sat Roberth (test code = O2 Sat Roberth) 92.0 40.0-70.0 H [facility] AllianceAkhlvgkXDHNAEGQK7567-97-44 20:41:00 Test Item Value Reference Range Interpretation Comments BE Roberth (test code = 4 See_Comment H [Automa rohit message] The BE Roberth) system which ge nerated this result transmit rohit reference range : <=2. The reference range was not used to interpr et this result as reji l/abnormal. [facility] PlanoByhfbaeEIJWSKYNS3450-34-68 20:41:00 Test Item Value Reference Range Interpretation Comments HCO3 Roberth (test code = HCO3 Roberth) 28.5 22.0-26.0 H [facility] AllianceWvmzxtxEKBECDVSM0949-56-06 20:41:00 Test Item Value Reference Range Interpretation Comments pO2 Roberth (test code = pO2 Roberth) 60 20-49 H [facility] AllianceRyglotvKEPFXAEPI4940-46-14 20:41:00 Test Item Value Reference Range Interpretation Comments pCO2 Roberth (test code = pCO2 Roberth) 41 38-52 N [facility] AllianceXundghvSHFVKKSYZ0323-05-13 20:41:00 Test Item Value Reference Range Interpretation Comments pH Roberth (test code = pH Roberth) 7.45 7.28-7.42 H [facility] AllianceOvvjmxoTDJHHTJFR1425-98-08 20:41:00 Test Item Value Reference Range Interpretation Comments Temp Roberth (test code = Temp Roberth) 37.0 [facility] AllianceUdqbfehNWFYLAMIA4074-75-14 20:41:00 Test Item Value Reference Range Interpretation Comments O2 Sat Roberth (test code = O2 Sat Roberth) 92.0 40.0-70.0 H [facility] AllianceBldgqbcVMUFZXNCF1731-39-32 20:41:00 Test Item Value Reference Range Interpretation Comments BE Roberth (test code = 4 See_Comment H [Automa rohit message] The BE Roberth) system which ge nerated this result transmit rohit reference range : <=2. The reference range was not used to interpr et this result as reji l/abnormal. [facility] AlliancePjmzjrgRAVLHOTRR7220-35-43 20:41:00 Test Item Value Reference Range Interpretation Comments HCO3 Roberth (test code = HCO3 Roberth) 28.5 22.0-26.0 H [facility] AllianceDwuasoxZRWRLFKOL8815-77-23 20:41:00 Test Item Value Reference Range Interpretation Comments pO2 Roberth (test code = pO2 Roberth) 60 20-49 H [facility] AllianceCeeibzlMBZAXJBDJ5627-26-30 20:41:00 Test Item Value Reference Range Interpretation Comments pCO2 Roberth (test code = pCO2 Roberth) 41 38-52 N [facility] AllianceClxjrbyQSFBSKMKI2539-13-44 20:41:00 Test Item Value Reference Range Interpretation Comments pH Roberth (test code = pH Roberth) 7.45 7.28-7.42 H [facility] AllianceSnzrwwtHUNYDSBKB1588-63-22 20:41:00 Test Item Value Reference Range Interpretation Comments Temp Roberth (test code = Temp Roberth) 37.0 [facility] AlliancePvnhqcqTRWBAMHNU8515-94-77 20:41:00 Test Item Value Reference Range Interpretation Comments O2 Sat Roberth (test code = O2 Sat Roberth) 92.0 40.0-70.0 H [facility] AllianceSiypmuqSAHXBFIBW1923-25-04 20:41:00 Test Item Value Reference Range Interpretation Comments BE Roberth (test code = 4 See_Comment H [Automa rohit message] The BE Roberth) system which ge nerated this result transmit rohit reference range : <=2. The reference range was not used to interpr et this result as reji l/abnormal. [facility] AllianceNwpdnigDLMDGSUKR9814-73-82 20:41:00 Test Item Value Reference Range Interpretation Comments HCO3 Roberth (test code = HCO3 Roberth) 28.5 22.0-26.0 H [facility] AllianceZbzjfhpPXZAXCOGS1110-82-79 20:41:00 Test Item Value Reference Range Interpretation Comments pO2 Roberth (test code = pO2 Roberth) 60 20-49 H [facility] AllianceAtrtvsmXFICGCBKQ5602-52-66 20:41:00 Test Item Value Reference Range Interpretation Comments pCO2 Roberth (test code = pCO2 Roberth) 41 38-52 N [facility] AllianceEzhjbynQQEPEBRIH0731-74-12 20:41:00 Test Item Value Reference Range Interpretation Comments pH Roberth (test code = pH Roberth) 7.45 7.28-7.42 H [facility] AllianceUurjtbqAFVKQNGNI1542-45-35 20:41:00 Test Item Value Reference Range Interpretation Comments Temp Roberth (test code = Temp Roberth) 37.0 [facility] AlliancePanxcqsTPLITQRVR4969-85-13 20:41:00 Test Item Value Reference Range Interpretation Comments O2 Sat Roberth (test code = O2 Sat Roberth) 92.0 40.0-70.0 H [facility] AllianceByihoseEGTOKMOID2845-77-79 20:41:00 Test Item Value Reference Range Interpretation Comments BE Roberth (test code = 4 See_Comment H [Automa rohit message] The BE Roberth) system which ge nerated this result transmit rohit reference range : <=2. The reference range was not used to interpr et this result as reji l/abnormal. [facility] AllianceQtoruapEPUYBARFC8901-04-18 20:41:00 Test Item Value Reference Range Interpretation Comments HCO3 Roberth (test code = HCO3 Roberth) 28.5 22.0-26.0 H [facility] AllianceTpcuqvhAMWNNMFWK7826-99-71 20:00:00 Test Item Value Reference Range Interpretation Comments Lactic Acid Lvl (test code = Lactic 1.6 0.5-2.2 N Acid Lvl) [facility] AllianceAwacoheIIDKNPCOY3921-46-65 20:00:00 Test Item Value Reference Range Interpretation Comments Lipase Lvl (test code = Lipase Lvl) 125 73-393 N [facility] AllianceHfhtwuyMRVZSVOIO1264-22-74 20:00:00 Test Item Value Reference Range Interpretation Comments Albumin Lvl (test code = Albumin Lvl) 4.2 3.5-5.0 N [facility] AllianceOwcifycFURMFMTFR3156-46-56 20:00:00 Test Item Value Reference Range Interpretation Comments CO2 (test code = CO2) 23 24-32 L [facility] AllianceZblowqcQCTGMVRMV7477-24-69 20:00:00 Test Item Value Reference Range Interpretation Comments Chloride Lvl (test code = Chloride Lvl) 98 95-109 N [facility] AllianceQyiorheFXQJVHEUW1492-72-94 20:00:00 Test Item Value Reference Range Interpretation Comments Potassium Lvl (test code = Potassium 3.8 3.5-5.1 N Lvl) [facility] AllianceJsyunqpZVMXAJPBS3891-68-32 20:00:00 Test Item Value Reference Range Interpretation Comments Sodium Lvl (test code = Sodium Lvl) 138 135-145 N [facility] AllianceAzjrnsrTRUEOMVCL5872-49-41 20:00:00 Test Item Value Reference Range Interpretation Comments Creatinine Lvl (test code = Creatinine 0.7 0.5-1.4 N Lvl) [facility] AllianceAqcceotYDXRLANUA2401-08-53 20:00:00 Test Item Value Reference Range Interpretation Comments BUN (test code = BUN) 9 7-22 N [facility] AllianceTlvpoosKXLSTOVUD5948-88-64 20:00:00 Test Item Value Reference Range Interpretation Comments Glucose Lvl (test code = Glucose Lvl) 269 70-99 H [facility] AllianceAjvmjdbIXZPDJRRP7408-69-69 20:00:00 Test Item Value Reference Range Interpretation Comments B/C Ratio (test code = B/C Ratio) 13 6-25 N [facility] AllianceUmwskplZLTGZMKIZ2694-20-03 20:00:00 Test Item Value Reference Range Interpretation Comments AGAP (test code = AGAP) 20.8 10.0-20.0 H [facility] AllianceUpaaddeFTTQJHTJK1263-54-92 20:00:00 Test Item Value Reference Range Interpretation Comments Calcium Lvl (test code = Calcium Lvl) 9.3 8.5-10.5 N [facility] AllianceNvsbcufYCUMSYRAW4877-35-13 20:00:00 Test Item Value Reference Range Interpretation Comments Total Protein (test code = Total 6.7 6.4-8.4 N Protein) [facility] AlliancePgztjbwRTLYMZPDY6972-83-86 20:00:00 Test Item Value Reference Range Interpretation Comments A/G Ratio (test code = A/G Ratio) 1.7 0.7-1.6 H [facility] AllianceAzsogebLBGBDAGYX5937-20-78 20:00:00 Test Item Value Reference Range Interpretation Comments Globulin (test code = Globulin) 2.5 2.0-4.0 N [facility] AllianceWajgaqrUCVIIYWGE3387-48-05 20:00:00 Test Item Value Reference Range Interpretation Comments AST (test code = AST) 18 See_Comment N [Auto mated message] The system which ge nerated this result transmit rohit reference range : <=37. The reference range was not used to interpr et this result as reji l/abnormal. [facility] AllianceJadmwrvYRNGBWNSM5620-34-38 20:00:00 Test Item Value Reference Range Interpretation Comments Alk Phos (test code = Alk Phos) 62 39-136 N [facility] AllianceXfafllsCOTGAFTXL3004-27-63 20:00:00 Test Item Value Reference Range Interpretation Comments ALT (test code = ALT) 32 See_Comment N [Auto mated message] The system which ge nerated this result transmit rohit reference range : <=65. The reference range was not used to interpr et this result as reji l/abnormal. [facility] AlliancePjsfzjoUYPZFGTMV4807-75-37 20:00:00 Test Item Value Reference Range Interpretation Comments Bili Total (test code = Bili Total) 0.7 0.2-1.3 N [facility]PsbmnatRWLFLXENOP3396-02-65 20:00:00 Test Item Value Reference Range Interpretation Comments Anisocyte (test code = 1+ *ABN*(11/28/2011 A Anisocyte) 15:00:00) [facility] HospitalRmrwldqHKFGBNDMPV3322-57-81 20:00:00 Test Item Value Reference Range Interpretation Comments Monocytes # (test code 0.1 See_Comment N [Aut omated message] The = Monocytes #) system which generated this result tra nsmitted reference range : <=0.8. The reference r leo was not used to int erpret this result as normal/abnormal . [facility] HospitalToxovduQHPZFOQVVZ6329-52-51 20:00:00 Test Item Value Reference Range Interpretation Comments Eosinophils # (test code 0.0 See_Comment N [A utomated message] The = Eosinophils #) system whic h generated this result tra nsmitted reference range : <=0.5. The reference r leo was not used to int erpret this result as normal/abnormal . [facility] HospitalZmldyxoAZOALFVPXF7312-10-45 20:00:00 Test Item Value Reference Range Interpretation Comments Basophils # (test code 0.0 See_Comment N [Aut omated message] The = Basophils #) system which generated this result tra nsmitted reference range : <=0.2. The reference r elo was not used to int erpret this result as normal/abnormal . [facility]UcnhvzrXSPVFWXHYB9901-47-24 20:00:00 Test Item Value Reference Range Interpretation Comments Neut Vac (test code = Slight *ABN*(11/28/2011 A Neut Vac) 15:00:00) [facility] HospitalVbnxxiuSWVLNYHLWW6610-27-11 20:00:00 Test Item Value Reference Range Interpretation Comments Large Plt (test code = Slight *ABN*(11/28/2011 A Large Plt) 15:00:00) [facility] HospitalDbyxoryGBROVFMMBW9289-73-99 20:00:00 Test Item Value Reference Range Interpretation Comments Segs-Bands # (test code = Segs-Bands #) 5.7 1.5-8.1 N [facility] HospitalOjzqtgePCLAXNVJSH8328-81-99 20:00:00 Test Item Value Reference Range Interpretation Comments Lymphocytes # (test code = Lymphocytes 0.8 1.0-5.5 L #) [facility] HospitalHnwckqzYZTFDGXETJ9144-78-05 20:00:00 Test Item Value Reference Range Interpretation Comments Eosinophils (test code = 0.2 See_Comment N [A utomated message] The Eosinophils) system which ge nerated this result tra nsmitted reference range : <=4.0. The reference r leo was not used to int erpret this result as normal/abnormal . [facility] HospitalJyiqzdcGQJVSELRVY4415-08-84 20:00:00 Test Item Value Reference Range Interpretation Comments Basophils (test code = 0.0 See_Comment N [Aut omated message] The Basophils) system which ge nerated this result tra nsmitted reference range : <=1.0. The reference r leo was not used to int erpret this result as normal/abnormal . [facility] HospitalOxaerqnDMHOBRQBKO7314-35-02 20:00:00 Test Item Value Reference Range Interpretation Comments Monocytes (test code = Monocytes) 1.9 2.0-12.0 L [facility] HospitalKtmeekbAKPTFYOHDG6060-55-07 20:00:00 Test Item Value Reference Range Interpretation Comments Segs (test code = Segs) 86.2 45.0-75.0 H [facility] HospitalShqkvryXGIYACTTLN4011-20-08 20:00:00 Test Item Value Reference Range Interpretation Comments Lymphocytes (test code = Lymphocytes) 11.7 20.0-40.0 L [facility] HospitalKbxvztgRXUSWBYTIL6557-52-98 20:00:00 Test Item Value Reference Range Interpretation Comments MPV (test code = MPV) 10.8 7.4-10.4 H [facility] HospitalVpclmpmENICMMZFME7821-53-56 20:00:00 Test Item Value Reference Range Interpretation Comments Platelet (test code = Platelet) 161 133-450 N [facility] HospitalJpgeaytKBUFKSEORC4818-96-35 20:00:00 Test Item Value Reference Range Interpretation Comments MCHC (test code = MCHC) 35.6 32.0-36.0 N [facility] HospitalKpiqyoqZCGOXVGJVH6939-41-13 20:00:00 Test Item Value Reference Range Interpretation Comments RDW (test code = RDW) 12.4 11.5-14.5 N [facility] HospitalWribvliESUAVJVDSR8014-32-40 20:00:00 Test Item Value Reference Range Interpretation Comments MCH (test code = MCH) 30.7 pg 27.0-31.0 N [facility] HospitalEnkxdkhVHBIHRYALV7647-12-07 20:00:00 Test Item Value Reference Range Interpretation Comments MCV (test code = MCV) 86.1 81.0-99.0 N [facility] HospitalBgerfktDHSNTQPRLD6745-30-69 20:00:00 Test Item Value Reference Range Interpretation Comments Hct (test code = Hct) 33.6 36.0-48.0 L [facility] HospitalHokeaiwTUIDGQGHQV5387-94-76 20:00:00 Test Item Value Reference Range Interpretation Comments Hgb (test code = Hgb) 12.0 12.0-16.0 N [facility] HospitalBcfilogIPUVZMHERY9301-34-29 20:00:00 Test Item Value Reference Range Interpretation Comments RBC (test code = RBC) 3.90 4.20-5.40 L [facility] HospitalMfbkhbzRTNTCJCFZP7674-12-15 20:00:00 Test Item Value Reference Range Interpretation Comments WBC (test code = WBC) 6.6 3.7-10.4 N [facility] AllianceXwvqatqWSTZOHUQW4684-61-47 20:00:00 Test Item Value Reference Range Interpretation Comments Lactic Acid Lvl (test code = Lactic 1.6 0.5-2.2 N Acid Lvl) [facility] AllianceZaivpsfAHOVGQOZK8859-28-65 20:00:00 Test Item Value Reference Range Interpretation Comments Lipase Lvl (test code = Lipase Lvl) 125 73-393 N [facility] AllianceCdruuifGXVIWBJUS1601-29-29 20:00:00 Test Item Value Reference Range Interpretation Comments Albumin Lvl (test code = Albumin Lvl) 4.2 3.5-5.0 N [facility] AllianceKlfqpiyJGFPRGWGH9984-36-10 20:00:00 Test Item Value Reference Range Interpretation Comments CO2 (test code = CO2) 23 24-32 L [facility] AllianceHfnfoyiBADGDIXZB0004-64-70 20:00:00 Test Item Value Reference Range Interpretation Comments Chloride Lvl (test code = Chloride Lvl) 98 95-109 N [facility] AllianceAyhpuuoBJNSRIFMN4878-65-72 20:00:00 Test Item Value Reference Range Interpretation Comments Potassium Lvl (test code = Potassium 3.8 3.5-5.1 N Lvl) [facility] AllianceRbhuulrGTARRHGEU0842-27-88 20:00:00 Test Item Value Reference Range Interpretation Comments Sodium Lvl (test code = Sodium Lvl) 138 135-145 N [facility] AllianceNziyhaoUCZUDRBBE3523-53-75 20:00:00 Test Item Value Reference Range Interpretation Comments Creatinine Lvl (test code = Creatinine 0.7 0.5-1.4 N Lvl) [facility] AllianceQlxntneYWTMYCVUW2836-85-99 20:00:00 Test Item Value Reference Range Interpretation Comments BUN (test code = BUN) 9 7-22 N [facility] AllianceQykchjeLJIJQOQIZ0756-28-42 20:00:00 Test Item Value Reference Range Interpretation Comments Glucose Lvl (test code = Glucose Lvl) 269 70-99 H [facility] AllianceBrlfvqtYNWYZECSN2206-63-28 20:00:00 Test Item Value Reference Range Interpretation Comments B/C Ratio (test code = B/C Ratio) 13 6-25 N [facility] AllianceRijfuqsFVSWVKYBH1150-17-03 20:00:00 Test Item Value Reference Range Interpretation Comments AGAP (test code = AGAP) 20.8 10.0-20.0 H [facility] AllianceNsrnhxaSHJODTVVK9925-97-01 20:00:00 Test Item Value Reference Range Interpretation Comments Calcium Lvl (test code = Calcium Lvl) 9.3 8.5-10.5 N [facility] AllianceKunnogpYGOBMXGRB2702-34-75 20:00:00 Test Item Value Reference Range Interpretation Comments Total Protein (test code = Total 6.7 6.4-8.4 N Protein) [facility] AllianceKfjgnspSDXICNFTP8494-06-35 20:00:00 Test Item Value Reference Range Interpretation Comments A/G Ratio (test code = A/G Ratio) 1.7 0.7-1.6 H [facility] AllianceDjrdszfQXKEKIQLT4702-35-13 20:00:00 Test Item Value Reference Range Interpretation Comments Globulin (test code = Globulin) 2.5 2.0-4.0 N [facility] AllianceUwwkmywRIZAZCLCY6539-62-69 20:00:00 Test Item Value Reference Range Interpretation Comments AST (test code = AST) 18 See_Comment N [Auto mated message] The system which ge nerated this result transmit rohit reference range : <=37. The reference range was not used to interpr et this result as reji l/abnormal. [facility] AllianceKdityhcHVNAJWJLV6318-69-91 20:00:00 Test Item Value Reference Range Interpretation Comments Alk Phos (test code = Alk Phos) 62 39-136 N [facility] AllianceZmanvblRSCRKHENQ0728-41-80 20:00:00 Test Item Value Reference Range Interpretation Comments ALT (test code = ALT) 32 See_Comment N [Auto mated message] The system which ge nerated this result transmit rohit reference range : <=65. The reference range was not used to interpr et this result as reji l/abnormal. [facility] AllianceYfknodxZMGBXDJVW2891-88-06 20:00:00 Test Item Value Reference Range Interpretation Comments Bili Total (test code = Bili Total) 0.7 0.2-1.3 N [facility] HospitalIqzzmtzEEBXYIIPON8102-38-13 20:00:00 Test Item Value Reference Range Interpretation Comments Anisocyte (test code = 1+ *ABN*(11/28/2011 A Anisocyte) 15:00:00) [facility] HospitalTkedwlqZPSLITJVDY9498-05-93 20:00:00 Test Item Value Reference Range Interpretation Comments Monocytes # (test code 0.1 See_Comment N [Aut omated message] The = Monocytes #) system which generated this result tra nsmitted reference range : <=0.8. The reference r leo was not used to int erpret this result as normal/abnormal . [facility] HospitalGtswtbjUKEZLTNPDO1447-59-53 20:00:00 Test Item Value Reference Range Interpretation Comments Eosinophils # (test code 0.0 See_Comment N [A utomated message] The = Eosinophils #) system whic h generated this result tra nsmitted reference range : <=0.5. The reference r leo was not used to int erpret this result as normal/abnormal . [facility] HospitalFskcaalAJARNJSWHV6291-06-32 20:00:00 Test Item Value Reference Range Interpretation Comments Basophils # (test code 0.0 See_Comment N [Aut omated message] The = Basophils #) system which generated this result tra nsmitted reference range : <=0.2. The reference r leo was not used to int erpret this result as normal/abnormal . [facility] HospitalHyjzqhmSZNMXDJYJG8326-99-43 20:00:00 Test Item Value Reference Range Interpretation Comments Neut Vac (test code = Slight *ABN*(11/28/2011 A Neut Vac) 15:00:00) [facility] HospitalVplglcdCAUCCLKEEY1592-53-69 20:00:00 Test Item Value Reference Range Interpretation Comments Large Plt (test code = Slight *ABN*(11/28/2011 A Large Plt) 15:00:00) [facility] HospitalBlebijiAQWPPONKZH5985-52-89 20:00:00 Test Item Value Reference Range Interpretation Comments Segs-Bands # (test code = Segs-Bands #) 5.7 1.5-8.1 N [facility] HospitalEljnigvVHUWCIHRDO3012-16-20 20:00:00 Test Item Value Reference Range Interpretation Comments Lymphocytes # (test code = Lymphocytes 0.8 1.0-5.5 L #) [facility] HospitalGnsidbcEOQEOEXVXX9325-77-76 20:00:00 Test Item Value Reference Range Interpretation Comments Eosinophils (test code = 0.2 See_Comment N [A utomated message] The Eosinophils) system which ge nerated this result tra nsmitted reference range : <=4.0. The reference r leo was not used to int erpret this result as normal/abnormal . [facility] HospitalTvtjezdGEHUBPDAGY3096-77-24 20:00:00 Test Item Value Reference Range Interpretation Comments Basophils (test code = 0.0 See_Comment N [Aut omated message] The Basophils) system which ge nerated this result tra nsmitted reference range : <=1.0. The reference r leo was not used to int erpret this result as normal/abnormal . [facility] HospitalFbricxaCJYHRWGVBF7173-69-75 20:00:00 Test Item Value Reference Range Interpretation Comments Monocytes (test code = Monocytes) 1.9 2.0-12.0 L [facility] HospitalKbfnabvSOYSCKTRGN0205-06-15 20:00:00 Test Item Value Reference Range Interpretation Comments Segs (test code = Segs) 86.2 45.0-75.0 H [facility] HospitalPoifaeyEXBTWOGOLV5939-48-62 20:00:00 Test Item Value Reference Range Interpretation Comments Lymphocytes (test code = Lymphocytes) 11.7 20.0-40.0 L [facility] HospitalUquoeqxIZHEDMOAEI7362-86-86 20:00:00 Test Item Value Reference Range Interpretation Comments MPV (test code = MPV) 10.8 7.4-10.4 H [facility] HospitalOhwnnzfXPFUDQNVDI4877-77-55 20:00:00 Test Item Value Reference Range Interpretation Comments Platelet (test code = Platelet) 161 133-450 N [facility] HospitalBiqorknXAQBLHSFZK9688-06-99 20:00:00 Test Item Value Reference Range Interpretation Comments MCHC (test code = MCHC) 35.6 32.0-36.0 N [facility] HospitalFcemidyGMRWDLMDVJ8739-71-84 20:00:00 Test Item Value Reference Range Interpretation Comments RDW (test code = RDW) 12.4 11.5-14.5 N [facility] HospitalWeiloojKDNOZGDVPH1367-80-37 20:00:00 Test Item Value Reference Range Interpretation Comments MCH (test code = MCH) 30.7 pg 27.0-31.0 N [facility] HospitalPvqpfleMKELWDOIHN5766-20-19 20:00:00 Test Item Value Reference Range Interpretation Comments MCV (test code = MCV) 86.1 81.0-99.0 N [facility] HospitalQejukaeQRLQBFGPMX2832-36-38 20:00:00 Test Item Value Reference Range Interpretation Comments Hct (test code = Hct) 33.6 36.0-48.0 L [facility] HospitalLkqthspILKSIOSDFT8395-84-17 20:00:00 Test Item Value Reference Range Interpretation Comments Hgb (test code = Hgb) 12.0 12.0-16.0 N [facility] HospitalEcottaxJMUUFLIYHN1494-20-13 20:00:00 Test Item Value Reference Range Interpretation Comments RBC (test code = RBC) 3.90 4.20-5.40 L [facility] HospitalZdzidbzPDZFETOWTJ5538-17-86 20:00:00 Test Item Value Reference Range Interpretation Comments WBC (test code = WBC) 6.6 3.7-10.4 N [facility] AllianceFlshfwuRQHCWUNGF0387-93-71 20:00:00 Test Item Value Reference Range Interpretation Comments Lactic Acid Lvl (test code = Lactic 1.6 0.5-2.2 N Acid Lvl) [facility] AllianceQyugfykCXLQXLZUE5835-93-88 20:00:00 Test Item Value Reference Range Interpretation Comments Lipase Lvl (test code = Lipase Lvl) 125 73-393 N [facility] AllianceProijdfLTHVNIKGC4709-72-70 20:00:00 Test Item Value Reference Range Interpretation Comments Albumin Lvl (test code = Albumin Lvl) 4.2 3.5-5.0 N [facility] AllianceClsrrkbSAPSLFBSS2091-23-87 20:00:00 Test Item Value Reference Range Interpretation Comments CO2 (test code = CO2) 23 24-32 L [facility] AllianceOkotrvyYTPOHBCXZ9280-08-20 20:00:00 Test Item Value Reference Range Interpretation Comments Chloride Lvl (test code = Chloride Lvl) 98 95-109 N [facility] AllianceMmwpegmNOQUKYLIO5135-26-98 20:00:00 Test Item Value Reference Range Interpretation Comments Potassium Lvl (test code = Potassium 3.8 3.5-5.1 N Lvl) [facility] AllianceBmwvqdeWVNLSQRQZ6702-92-82 20:00:00 Test Item Value Reference Range Interpretation Comments Sodium Lvl (test code = Sodium Lvl) 138 135-145 N [facility] AllianceAnoiurxWYXNERRKL7883-95-30 20:00:00 Test Item Value Reference Range Interpretation Comments Creatinine Lvl (test code = Creatinine 0.7 0.5-1.4 N Lvl) [facility] AllianceRvpavrrVMAIAEYAE2052-33-78 20:00:00 Test Item Value Reference Range Interpretation Comments BUN (test code = BUN) 9 7-22 N [facility] AllianceYcxsovmNJBMBTQNQ6864-43-92 20:00:00 Test Item Value Reference Range Interpretation Comments Glucose Lvl (test code = Glucose Lvl) 269 70-99 H [facility] AllianceMajyddaSFFTLBCFQ7103-72-59 20:00:00 Test Item Value Reference Range Interpretation Comments B/C Ratio (test code = B/C Ratio) 13 6-25 N [facility] AllianceGsnmaaiRJHTYKVRJ0918-48-13 20:00:00 Test Item Value Reference Range Interpretation Comments AGAP (test code = AGAP) 20.8 10.0-20.0 H [facility] AllianceHmybrvxCAFMQVWJL9637-33-47 20:00:00 Test Item Value Reference Range Interpretation Comments Calcium Lvl (test code = Calcium Lvl) 9.3 8.5-10.5 N [facility] AllianceDiwkjjfTVQWATSCA4666-36-61 20:00:00 Test Item Value Reference Range Interpretation Comments Total Protein (test code = Total 6.7 6.4-8.4 N Protein) [facility] AllianceSrirbhyMACTGKRMZ9969-02-47 20:00:00 Test Item Value Reference Range Interpretation Comments A/G Ratio (test code = A/G Ratio) 1.7 0.7-1.6 H [facility] AllianceJioqszjLXHBKRLUV8494-03-02 20:00:00 Test Item Value Reference Range Interpretation Comments Globulin (test code = Globulin) 2.5 2.0-4.0 N [facility] AllianceAlvylwaNWDRXXYKM7959-69-46 20:00:00 Test Item Value Reference Range Interpretation Comments AST (test code = AST) 18 See_Comment N [Auto mated message] The system which ge nerated this result transmit rohit reference range : <=37. The reference range was not used to interpr et this result as reji l/abnormal. [facility] AllianceYgjelydZLVHRVKBP2510-99-54 20:00:00 Test Item Value Reference Range Interpretation Comments Alk Phos (test code = Alk Phos) 62 39-136 N [facility] AllianceNsmrsfaKFFUYCCTH2143-88-40 20:00:00 Test Item Value Reference Range Interpretation Comments ALT (test code = ALT) 32 See_Comment N [Auto mated message] The system which ge nerated this result transmit rohit reference range : <=65. The reference range was not used to interpr et this result as reji l/abnormal. [facility] AllianceZwjgosyJZJHEGKRW7988-82-98 20:00:00 Test Item Value Reference Range Interpretation Comments Bili Total (test code = Bili Total) 0.7 0.2-1.3 N [facility] HospitalVznbmgxINOTIVYCRW7887-71-57 20:00:00 Test Item Value Reference Range Interpretation Comments Anisocyte (test code = 1+ *ABN*(11/28/2011 A Anisocyte) 15:00:00) [facility] HospitalDueurvyPYCBWDOFSS6620-66-66 20:00:00 Test Item Value Reference Range Interpretation Comments Monocytes # (test code 0.1 See_Comment N [Aut omated message] The = Monocytes #) system which generated this result tra nsmitted reference range : <=0.8. The reference r leo was not used to int erpret this result as normal/abnormal . [facility] HospitalGanbkreWRNQFBZDYN3886-26-45 20:00:00 Test Item Value Reference Range Interpretation Comments Eosinophils # (test code 0.0 See_Comment N [A utomated message] The = Eosinophils #) system whic h generated this result tra nsmitted reference range : <=0.5. The reference r leo was not used to int erpret this result as normal/abnormal . [facility] HospitalQcbolhfZZDHQRBREZ3936-97-52 20:00:00 Test Item Value Reference Range Interpretation Comments Basophils # (test code 0.0 See_Comment N [Aut omated message] The = Basophils #) system which generated this result tra nsmitted reference range : <=0.2. The reference r leo was not used to int erpret this result as normal/abnormal . [facility] HospitalYrdbnxrNDJWFONMVI5989-79-84 20:00:00 Test Item Value Reference Range Interpretation Comments Neut Vac (test code = Slight *ABN*(11/28/2011 A Neut Vac) 15:00:00) [facility] HospitalTyvrgrbZDLPGSSDRE3296-54-84 20:00:00 Test Item Value Reference Range Interpretation Comments Large Plt (test code = Slight *ABN*(11/28/2011 A Large Plt) 15:00:00) [facility] HospitalPnadmgcFORCBCDRYB2283-01-77 20:00:00 Test Item Value Reference Range Interpretation Comments Segs-Bands # (test code = Segs-Bands #) 5.7 1.5-8.1 N [facility] HospitalAukpeewERAKJKZERK3664-53-10 20:00:00 Test Item Value Reference Range Interpretation Comments Lymphocytes # (test code = Lymphocytes 0.8 1.0-5.5 L #) [facility] HospitalHuinyttTVIIJNBOGD9420-28-40 20:00:00 Test Item Value Reference Range Interpretation Comments Eosinophils (test code = 0.2 See_Comment N [A utomated message] The Eosinophils) system which ge nerated this result tra nsmitted reference range : <=4.0. The reference r leo was not used to int erpret this result as normal/abnormal . [facility] HospitalDlegvorUGOBQVSMKK3826-06-79 20:00:00 Test Item Value Reference Range Interpretation Comments Basophils (test code = 0.0 See_Comment N [Aut omated message] The Basophils) system which ge nerated this result tra nsmitted reference range : <=1.0. The reference r leo was not used to int erpret this result as normal/abnormal . [facility] HospitalXayrwmwSAKUAMEALH7275-67-71 20:00:00 Test Item Value Reference Range Interpretation Comments Monocytes (test code = Monocytes) 1.9 2.0-12.0 L [facility] HospitalVqprgpiZPCUBYSUTW5203-94-10 20:00:00 Test Item Value Reference Range Interpretation Comments Segs (test code = Segs) 86.2 45.0-75.0 H [facility] HospitalWwyjnuxWPMLXQKGID0446-80-13 20:00:00 Test Item Value Reference Range Interpretation Comments Lymphocytes (test code = Lymphocytes) 11.7 20.0-40.0 L [facility] HospitalNqekkvoDTILODNHMR7166-35-21 20:00:00 Test Item Value Reference Range Interpretation Comments MPV (test code = MPV) 10.8 7.4-10.4 H [facility] HospitalDtjusudWRJHLRQCST3169-14-34 20:00:00 Test Item Value Reference Range Interpretation Comments Platelet (test code = Platelet) 161 133-450 N [facility] HospitalHqpjavuLNFKZVKFTN7969-31-80 20:00:00 Test Item Value Reference Range Interpretation Comments MCHC (test code = MCHC) 35.6 32.0-36.0 N [facility] HospitalMgqoyqxHFAAXWGSUB3568-84-29 20:00:00 Test Item Value Reference Range Interpretation Comments RDW (test code = RDW) 12.4 11.5-14.5 N [facility] HospitalZtjqshiEWNCKIFNBO7840-76-67 20:00:00 Test Item Value Reference Range Interpretation Comments MCH (test code = MCH) 30.7 pg 27.0-31.0 N [facility] HospitalJitfyboUTFKJXGTSZ3124-26-32 20:00:00 Test Item Value Reference Range Interpretation Comments MCV (test code = MCV) 86.1 81.0-99.0 N [facility] HospitalXqowpcdSJYNVJDANZ6061-27-62 20:00:00 Test Item Value Reference Range Interpretation Comments Hct (test code = Hct) 33.6 36.0-48.0 L [facility] HospitalBlgtaopYYZOVTWXJN4656-54-55 20:00:00 Test Item Value Reference Range Interpretation Comments Hgb (test code = Hgb) 12.0 12.0-16.0 N [facility] HospitalHevdygoPDEFEHBRPJ9601-19-09 20:00:00 Test Item Value Reference Range Interpretation Comments RBC (test code = RBC) 3.90 4.20-5.40 L [facility] HospitalVrwfexgCTNDDAAYUF5707-10-71 20:00:00 Test Item Value Reference Range Interpretation Comments WBC (test code = WBC) 6.6 3.7-10.4 N [facility] AllianceQbbncxiZNSNMISAM3200-44-87 20:00:00 Test Item Value Reference Range Interpretation Comments Lactic Acid Lvl (test code = Lactic 1.6 0.5-2.2 N Acid Lvl) [facility] AllianceRfizmqwSMDOTYXWC2234-03-96 20:00:00 Test Item Value Reference Range Interpretation Comments Lipase Lvl (test code = Lipase Lvl) 125 73-393 N [facility] AllianceVftylcpAZCUNKHEO4716-25-35 20:00:00 Test Item Value Reference Range Interpretation Comments Albumin Lvl (test code = Albumin Lvl) 4.2 3.5-5.0 N [facility] AllianceNulqvfmLPIPXIYXP5465-37-06 20:00:00 Test Item Value Reference Range Interpretation Comments CO2 (test code = CO2) 23 24-32 L [facility] AllianceJeztomdIIXXPEGRD5197-43-00 20:00:00 Test Item Value Reference Range Interpretation Comments Chloride Lvl (test code = Chloride Lvl) 98 95-109 N [facility] AllianceTekiihhDVEGKQGKB0379-09-47 20:00:00 Test Item Value Reference Range Interpretation Comments Potassium Lvl (test code = Potassium 3.8 3.5-5.1 N Lvl) [facility] AllianceIbtcrwnZCIGJOPGC9073-53-37 20:00:00 Test Item Value Reference Range Interpretation Comments Sodium Lvl (test code = Sodium Lvl) 138 135-145 N [facility] AllianceKecqzbsAHWDSRWAV6317-40-80 20:00:00 Test Item Value Reference Range Interpretation Comments Creatinine Lvl (test code = Creatinine 0.7 0.5-1.4 N Lvl) [facility] AllianceJrxukwbIVRKVISKX3020-60-42 20:00:00 Test Item Value Reference Range Interpretation Comments BUN (test code = BUN) 9 7-22 N [facility] AllianceRygyfzcUCRXCJJOP1493-40-68 20:00:00 Test Item Value Reference Range Interpretation Comments Glucose Lvl (test code = Glucose Lvl) 269 70-99 H [facility] AllianceNxpwsjzAIHDJDQHL8965-90-89 20:00:00 Test Item Value Reference Range Interpretation Comments B/C Ratio (test code = B/C Ratio) 13 6-25 N [facility] AllianceUczwodgXXDZBDXGB5362-68-10 20:00:00 Test Item Value Reference Range Interpretation Comments AGAP (test code = AGAP) 20.8 10.0-20.0 H [facility] AllianceJfdjlprRBYUBTAOG5660-01-55 20:00:00 Test Item Value Reference Range Interpretation Comments Calcium Lvl (test code = Calcium Lvl) 9.3 8.5-10.5 N [facility] AllianceYssvzliRLDEFNKEA4581-55-58 20:00:00 Test Item Value Reference Range Interpretation Comments Total Protein (test code = Total 6.7 6.4-8.4 N Protein) [facility] AllianceNngmlyqDDGEONDXX1287-14-74 20:00:00 Test Item Value Reference Range Interpretation Comments A/G Ratio (test code = A/G Ratio) 1.7 0.7-1.6 H [facility] AllianceLknfxyyFKHZLABEV6803-83-77 20:00:00 Test Item Value Reference Range Interpretation Comments Globulin (test code = Globulin) 2.5 2.0-4.0 N [facility] AllianceVfpwloqEIXFZXUGV6855-74-54 20:00:00 Test Item Value Reference Range Interpretation Comments AST (test code = AST) 18 See_Comment N [Auto mated message] The system which ge nerated this result transmit rohit reference range : <=37. The reference range was not used to interpr et this result as reji l/abnormal. [facility] AllianceScoigcyZGUQCIONY3448-04-93 20:00:00 Test Item Value Reference Range Interpretation Comments Alk Phos (test code = Alk Phos) 62 39-136 N [facility] AllianceDavikawAOSIZFSWX2420-60-79 20:00:00 Test Item Value Reference Range Interpretation Comments ALT (test code = ALT) 32 See_Comment N [Auto mated message] The system which ge nerated this result transmit rohit reference range : <=65. The reference range was not used to interpr et this result as reji l/abnormal. [facility] AlliancePfezvzdTXMEYUHMV7551-41-46 20:00:00 Test Item Value Reference Range Interpretation Comments Bili Total (test code = Bili Total) 0.7 0.2-1.3 N [facility]TekbzhiBXQAGVNZAX8585-16-86 20:00:00 Test Item Value Reference Range Interpretation Comments Anisocyte (test code = 1+ *ABN*(11/28/2011 A Anisocyte) 15:00:00) [facility]ErydtmlLHZKVIDEOL0327-87-16 20:00:00 Test Item Value Reference Range Interpretation Comments Monocytes # (test code 0.1 See_Comment N [Aut omated message] The = Monocytes #) system which generated this result tra nsmitted reference range : <=0.8. The reference r leo was not used to int erpret this result as normal/abnormal . [facility] HospitalDhnxudaEVACTEWMLS9073-23-18 20:00:00 Test Item Value Reference Range Interpretation Comments Eosinophils # (test code 0.0 See_Comment N [A utomated message] The = Eosinophils #) system whic h generated this result tra nsmitted reference range : <=0.5. The reference r leo was not used to int erpret this result as normal/abnormal . [facility] HospitalAjjrlzgXOACAZQMTT8349-48-82 20:00:00 Test Item Value Reference Range Interpretation Comments Basophils # (test code 0.0 See_Comment N [Aut omated message] The = Basophils #) system which generated this result tra nsmitted reference range : <=0.2. The reference r leo was not used to int erpret this result as normal/abnormal . [facility] HospitalIrgookmIHZCSBQCBY2036-73-58 20:00:00 Test Item Value Reference Range Interpretation Comments Neut Vac (test code = Slight *ABN*(11/28/2011 A Neut Vac) 15:00:00) [facility] HospitalHhsmpphFGSLGDTTRR2171-66-25 20:00:00 Test Item Value Reference Range Interpretation Comments Large Plt (test code = Slight *ABN*(11/28/2011 A Large Plt) 15:00:00) [facility] HospitalJlyxepfVQSQOOOQUR1089-33-54 20:00:00 Test Item Value Reference Range Interpretation Comments Segs-Bands # (test code = Segs-Bands #) 5.7 1.5-8.1 N [facility] HospitalMmfmflpSKRFSTIRHN5715-23-76 20:00:00 Test Item Value Reference Range Interpretation Comments Lymphocytes # (test code = Lymphocytes 0.8 1.0-5.5 L #) [facility] HospitalDfgwirzOWPGABLPMB8721-20-61 20:00:00 Test Item Value Reference Range Interpretation Comments Eosinophils (test code = 0.2 See_Comment N [A utomated message] The Eosinophils) system which ge nerated this result tra nsmitted reference range : <=4.0. The reference r leo was not used to int erpret this result as normal/abnormal . [facility] HospitalYzbsdjdJCJBDLAEVK2145-26-72 20:00:00 Test Item Value Reference Range Interpretation Comments Basophils (test code = 0.0 See_Comment N [Aut omated message] The Basophils) system which ge nerated this result tra nsmitted reference range : <=1.0. The reference r leo was not used to int erpret this result as normal/abnormal . [facility] HospitalKyaquztHLATAPFAWY3658-97-62 20:00:00 Test Item Value Reference Range Interpretation Comments Monocytes (test code = Monocytes) 1.9 2.0-12.0 L [facility] HospitalZkkhmgvRMLICEADCZ0292-37-16 20:00:00 Test Item Value Reference Range Interpretation Comments Segs (test code = Segs) 86.2 45.0-75.0 H [facility] HospitalQqxlnanAQCNATPZEH5438-61-69 20:00:00 Test Item Value Reference Range Interpretation Comments Lymphocytes (test code = Lymphocytes) 11.7 20.0-40.0 L [facility] HospitalOkqdxoqMWFDFAVZTH6096-53-46 20:00:00 Test Item Value Reference Range Interpretation Comments MPV (test code = MPV) 10.8 7.4-10.4 H [facility] HospitalYvfpseiUXZJNIUNXR5823-99-54 20:00:00 Test Item Value Reference Range Interpretation Comments Platelet (test code = Platelet) 161 133-450 N [facility] HospitalSbfvdaqTQTGCGNJTX3209-05-78 20:00:00 Test Item Value Reference Range Interpretation Comments MCHC (test code = MCHC) 35.6 32.0-36.0 N [facility] HospitalJqgmxosDQJQAUCGRF1891-09-29 20:00:00 Test Item Value Reference Range Interpretation Comments RDW (test code = RDW) 12.4 11.5-14.5 N [facility] HospitalOmndzhhTXRUJGNHXC6523-71-58 20:00:00 Test Item Value Reference Range Interpretation Comments MCH (test code = MCH) 30.7 pg 27.0-31.0 N [facility] HospitalMmnizqjSSRGJOOSJA1982 20:00:00 Test Item Value Reference Range Interpretation Comments MCV (test code = MCV) 86.1 81.0-99.0 N [facility] HospitalUhpjhnhNKBAXZCUWD7649-22-97 20:00:00 Test Item Value Reference Range Interpretation Comments Hct (test code = Hct) 33.6 36.0-48.0 L [facility] HospitalQmpgtueOWMJDSPTJB7558-77-42 20:00:00 Test Item Value Reference Range Interpretation Comments Hgb (test code = Hgb) 12.0 12.0-16.0 N [facility] HospitalPdzwdxpTPUVLMUYGB7010-46-80 20:00:00 Test Item Value Reference Range Interpretation Comments RBC (test code = RBC) 3.90 4.20-5.40 L [facility] HospitalXqpkykgAJPNYWBPWS3200-78-13 20:00:00 Test Item Value Reference Range Interpretation Comments WBC (test code = WBC) 6.6 3.7-10.4 N [facility] AllianceTiemcjlWOLSXHAFU2476-60-44 20:00:00 Test Item Value Reference Range Interpretation Comments Lactic Acid Lvl (test code = Lactic 1.6 0.5-2.2 N Acid Lvl) [facility] AllianceGuukubtQGRECMOXY2497-01-68 20:00:00 Test Item Value Reference Range Interpretation Comments Lipase Lvl (test code = Lipase Lvl) 125 73-393 N [facility] AllianceAvyxiqnRILGVFMKK5857-77-48 20:00:00 Test Item Value Reference Range Interpretation Comments Albumin Lvl (test code = Albumin Lvl) 4.2 3.5-5.0 N [facility] AllianceGtccpdmYICPERCAT8433-39-94 20:00:00 Test Item Value Reference Range Interpretation Comments CO2 (test code = CO2) 23 24-32 L [facility] AllianceAmjubliRUWTYWETV9048-92-57 20:00:00 Test Item Value Reference Range Interpretation Comments Chloride Lvl (test code = Chloride Lvl) 98 95-109 N [facility] AllianceZpteevfLXANDFQNH4815-08-42 20:00:00 Test Item Value Reference Range Interpretation Comments Potassium Lvl (test code = Potassium 3.8 3.5-5.1 N Lvl) [facility] AllianceDouzshzRFLERMMHH6371-32-26 20:00:00 Test Item Value Reference Range Interpretation Comments Sodium Lvl (test code = Sodium Lvl) 138 135-145 N [facility] AllianceHddbcdwUANOEFVDV3706-54-16 20:00:00 Test Item Value Reference Range Interpretation Comments Creatinine Lvl (test code = Creatinine 0.7 0.5-1.4 N Lvl) [facility] AllianceOiwxymoPSPIMFQEH6570-50-98 20:00:00 Test Item Value Reference Range Interpretation Comments BUN (test code = BUN) 9 7-22 N [facility] AllianceHtnzwpkOYWAPKDUZ2736-55-29 20:00:00 Test Item Value Reference Range Interpretation Comments Glucose Lvl (test code = Glucose Lvl) 269 70-99 H [facility] AllianceWrtobvbARDMBIJMH2162-19-39 20:00:00 Test Item Value Reference Range Interpretation Comments B/C Ratio (test code = B/C Ratio) 13 6-25 N [facility] AllianceUetndcvAHXLTJBHF3333-82-21 20:00:00 Test Item Value Reference Range Interpretation Comments AGAP (test code = AGAP) 20.8 10.0-20.0 H [facility] AllianceKxofhvnBKGYOCWTQ0766-27-26 20:00:00 Test Item Value Reference Range Interpretation Comments Calcium Lvl (test code = Calcium Lvl) 9.3 8.5-10.5 N [facility] AllianceYhvgmlhXLULELEJA8668-29-52 20:00:00 Test Item Value Reference Range Interpretation Comments Total Protein (test code = Total 6.7 6.4-8.4 N Protein) [facility] AllianceKrceqptFUCCTHIVF7790-38-03 20:00:00 Test Item Value Reference Range Interpretation Comments A/G Ratio (test code = A/G Ratio) 1.7 0.7-1.6 H [facility] AllianceQztlkmqFLEEWQDSG2552-78-73 20:00:00 Test Item Value Reference Range Interpretation Comments Globulin (test code = Globulin) 2.5 2.0-4.0 N [facility] AllianceUbyzzvkGWYHVJVAZ7565-55-42 20:00:00 Test Item Value Reference Range Interpretation Comments AST (test code = AST) 18 See_Comment N [Auto mated message] The system which ge nerated this result transmit rohit reference range : <=37. The reference range was not used to interpr et this result as reji l/abnormal. [facility] AllianceHacqpskCSLYWBSHB1996-36-57 20:00:00 Test Item Value Reference Range Interpretation Comments Alk Phos (test code = Alk Phos) 62 39-136 N [facility] AllianceQqidcpjKUPXOJMJI7144-31-87 20:00:00 Test Item Value Reference Range Interpretation Comments ALT (test code = ALT) 32 See_Comment N [Auto mated message] The system which ge nerated this result transmit rohit reference range : <=65. The reference range was not used to interpr et this result as reji l/abnormal. [facility] AllianceNlqlfpiUIMUNESMC4811-68-85 20:00:00 Test Item Value Reference Range Interpretation Comments Bili Total (test code = Bili Total) 0.7 0.2-1.3 N [facility] HospitalPnunfbjNGKPULMXEE4590-83-13 20:00:00 Test Item Value Reference Range Interpretation Comments Anisocyte (test code = 1+ *ABN*(11/28/2011 A Anisocyte) 15:00:00) [facility] HospitalTehdbcsGWTCADHLSQ1446-15-89 20:00:00 Test Item Value Reference Range Interpretation Comments Monocytes # (test code 0.1 See_Comment N [Aut omated message] The = Monocytes #) system which generated this result tra nsmitted reference range : <=0.8. The reference r leo was not used to int erpret this result as normal/abnormal . [facility] HospitalPiaenbrWOCGHPIASU4693-44-15 20:00:00 Test Item Value Reference Range Interpretation Comments Eosinophils # (test code 0.0 See_Comment N [A utomated message] The = Eosinophils #) system whic h generated this result tra nsmitted reference range : <=0.5. The reference r leo was not used to int erpret this result as normal/abnormal . [facility] HospitalQmsozueHMCVOMXTXV7176-18-83 20:00:00 Test Item Value Reference Range Interpretation Comments Basophils # (test code 0.0 See_Comment N [Aut omated message] The = Basophils #) system which generated this result tra nsmitted reference range : <=0.2. The reference r leo was not used to int erpret this result as normal/abnormal . [facility] HospitalEgmgtooYAZONKVSVU1677-11-31 20:00:00 Test Item Value Reference Range Interpretation Comments Neut Vac (test code = Slight *ABN*(11/28/2011 A Neut Vac) 15:00:00) [facility] HospitalJjsnkztMCETNCCBQD4637-13-03 20:00:00 Test Item Value Reference Range Interpretation Comments Large Plt (test code = Slight *ABN*(11/28/2011 A Large Plt) 15:00:00) [facility] HospitalBirstebLOBPDKAQAA1348-84-58 20:00:00 Test Item Value Reference Range Interpretation Comments Segs-Bands # (test code = Segs-Bands #) 5.7 1.5-8.1 N [facility] HospitalYmwahhsRCRJZSPTXX5900-16-95 20:00:00 Test Item Value Reference Range Interpretation Comments Lymphocytes # (test code = Lymphocytes 0.8 1.0-5.5 L #) [facility] HospitalKwfunavVEWPPDWWON1196-53-22 20:00:00 Test Item Value Reference Range Interpretation Comments Eosinophils (test code = 0.2 See_Comment N [A utomated message] The Eosinophils) system which ge nerated this result tra nsmitted reference range : <=4.0. The reference r leo was not used to int erpret this result as normal/abnormal . [facility] HospitalUkmczsnEDFJVVDANG6133-10-68 20:00:00 Test Item Value Reference Range Interpretation Comments Basophils (test code = 0.0 See_Comment N [Aut omated message] The Basophils) system which ge nerated this result tra nsmitted reference range : <=1.0. The reference r leo was not used to int erpret this result as normal/abnormal . [facility] HospitalJhodhciSRMTBNMAXE1497-33-70 20:00:00 Test Item Value Reference Range Interpretation Comments Monocytes (test code = Monocytes) 1.9 2.0-12.0 L [facility] HospitalWbecqtaZDEIROCZBC7932-10-45 20:00:00 Test Item Value Reference Range Interpretation Comments Segs (test code = Segs) 86.2 45.0-75.0 H [facility] HospitalLlsptnzCCUYDPWHOI7220-79-76 20:00:00 Test Item Value Reference Range Interpretation Comments Lymphocytes (test code = Lymphocytes) 11.7 20.0-40.0 L [facility] HospitalLqtcbvkJYBLOERVJS8954-43-47 20:00:00 Test Item Value Reference Range Interpretation Comments MPV (test code = MPV) 10.8 7.4-10.4 H [facility] HospitalDgilfytPUQXVPSLBA3585-06-91 20:00:00 Test Item Value Reference Range Interpretation Comments Platelet (test code = Platelet) 161 133-450 N [facility] HospitalPaqvvuyOYQTOXGSEZ0140-07-81 20:00:00 Test Item Value Reference Range Interpretation Comments MCHC (test code = MCHC) 35.6 32.0-36.0 N [facility] HospitalLzxjzuzQOKMZFELHA7351-26-46 20:00:00 Test Item Value Reference Range Interpretation Comments RDW (test code = RDW) 12.4 11.5-14.5 N [facility] HospitalUcclymuPLRNKKCWVN9119-27-25 20:00:00 Test Item Value Reference Range Interpretation Comments MCH (test code = MCH) 30.7 pg 27.0-31.0 N [facility] HospitalOltcoqhJZOHMCTZLM8116-87-70 20:00:00 Test Item Value Reference Range Interpretation Comments MCV (test code = MCV) 86.1 81.0-99.0 N [facility] HospitalSgqavzrMYKOZOPIVM7437-39-82 20:00:00 Test Item Value Reference Range Interpretation Comments Hct (test code = Hct) 33.6 36.0-48.0 L [facility] HospitalDcvdfbaMUSNKEZXTZ8432-83-52 20:00:00 Test Item Value Reference Range Interpretation Comments Hgb (test code = Hgb) 12.0 12.0-16.0 N [facility] HospitalXuhurtxTODWSZQSZV8444-75-15 20:00:00 Test Item Value Reference Range Interpretation Comments RBC (test code = RBC) 3.90 4.20-5.40 L [facility] HospitalOxdhvtxXJBBGMELNF6661-27-88 20:00:00 Test Item Value Reference Range Interpretation Comments WBC (test code = WBC) 6.6 3.7-10.4 N [facility] AllianceHkquwfgMBATPYJNY3970-65-73 19:51:00 Test Item Value Reference Range Interpretation Comments UDS Note (test code = See Note UDS Note) 5*NA*(11/28/2011 14:51:00) [facility] AllianceAfufvgnDMWYEDDYY3042-24-76 19:51:00 Test Item Value Reference Range Interpretation Comments U Phencyc Scr (test Negative code = U Phencyc Scr) *NA*(11/28/2011 14:51:00) [facility] AllianceFlmylwvHLEWANNPG5741-54-64 19:51:00 Test Item Value Reference Range Interpretation Comments U Kelly Scr (test code Negative *NA*(11/28/2011 = U Kelly Scr) 14:51:00) [facility] AllianceOewwstlFEZBKCPCY6593-64-18 19:51:00 Test Item Value Reference Range Interpretation Comments U Amph Scr (test code Negative *NA*(11/28/2011 = U Amph Scr) 14:51:00) [facility] AllianceFbtxxmvEOVEMTTQA6295-96-88 19:51:00 Test Item Value Reference Range Interpretation Comments U Opiate Scr (test Negative code = U Opiate Scr) *NA*(11/28/2011 14:51:00) [facility] AllianceKoblqapVEWFAIASL8363-67-64 19:51:00 Test Item Value Reference Range Interpretation Comments U Cocaine Scr (test Negative code = U Cocaine Scr) *NA*(11/28/2011 14:51:00) [facility] AllianceXppojhxQTYVLDOXM8999-77-20 19:51:00 Test Item Value Reference Range Interpretation Comments U Cannab Scr (test Negative code = U Cannab Scr) *NA*(11/28/2011 14:51:00) [facility] AllianceOufmwmhXDDAMYVZB0240-83-69 19:51:00 Test Item Value Reference Range Interpretation Comments U Benzodia Scr (test Negative code = U Benzodia Scr) *NA*(11/28/2011 14:51:00) [facility] AllianceJhcxrldPPNEUBVXL6473-85-02 19:51:00 Test Item Value Reference Range Interpretation Comments UDS Note (test code = See Note UDS Note) 5*NA*(11/28/2011 14:51:00) [facility] AllianceAsvpcvtMBTGWXULS7940-32-02 19:51:00 Test Item Value Reference Range Interpretation Comments U Phencyc Scr (test Negative code = U Phencyc Scr) *NA*(11/28/2011 14:51:00) [facility] AllianceLvbobdpHXRYXOXDT2599-90-87 19:51:00 Test Item Value Reference Range Interpretation Comments U Kelly Scr (test code Negative *NA*(11/28/2011 = U Kelly Scr) 14:51:00) [facility] AllianceSxxqvgvTOZGLYXID6646-41-38 19:51:00 Test Item Value Reference Range Interpretation Comments U Amph Scr (test code Negative *NA*(11/28/2011 = U Amph Scr) 14:51:00) [facility] AllianceArvkjfnRJMRHAVET2200-16-00 19:51:00 Test Item Value Reference Range Interpretation Comments U Opiate Scr (test Negative code = U Opiate Scr) *NA*(11/28/2011 14:51:00) [facility] AllianceAmcdykvWJZBNEKAA9292-78-59 19:51:00 Test Item Value Reference Range Interpretation Comments U Cocaine Scr (test Negative code = U Cocaine Scr) *NA*(11/28/2011 14:51:00) [facility] AllianceZwzsdczZUYAUZXEK1082-74-14 19:51:00 Test Item Value Reference Range Interpretation Comments U Cannab Scr (test Negative code = U Cannab Scr) *NA*(11/28/2011 14:51:00) [facility] AllianceZjxmddtWMZAQPICA5524-67-47 19:51:00 Test Item Value Reference Range Interpretation Comments U Benzodia Scr (test Negative code = U Benzodia Scr) *NA*(11/28/2011 14:51:00) [facility] AllianceCwvyqldCYVUDIXVK0113-92-25 19:51:00 Test Item Value Reference Range Interpretation Comments UDS Note (test code = See Note UDS Note) 5*NA*(11/28/2011 14:51:00) [facility] AllianceWvykcnuLVHJJZHSY8934-00-19 19:51:00 Test Item Value Reference Range Interpretation Comments U Phencyc Scr (test Negative code = U Phencyc Scr) *NA*(11/28/2011 14:51:00) [facility] AllianceKgiaksyXYSKZFAUU5069-60-16 19:51:00 Test Item Value Reference Range Interpretation Comments U Kelly Scr (test code Negative *NA*(11/28/2011 = U Kelly Scr) 14:51:00) [facility] AllianceDqmynekHZWWGLMSE9768-59-70 19:51:00 Test Item Value Reference Range Interpretation Comments U Amph Scr (test code Negative *NA*(11/28/2011 = U Amph Scr) 14:51:00) [facility] AllianceZeikwbiOBUOECDDP1262-26-40 19:51:00 Test Item Value Reference Range Interpretation Comments U Opiate Scr (test Negative code = U Opiate Scr) *NA*(11/28/2011 14:51:00) [facility] AllianceYjuucpeCZGWJBEKR7637-76-05 19:51:00 Test Item Value Reference Range Interpretation Comments U Cocaine Scr (test Negative code = U Cocaine Scr) *NA*(11/28/2011 14:51:00) [facility] AlliancePciozdtXPEORAZYE8963-01-42 19:51:00 Test Item Value Reference Range Interpretation Comments U Cannab Scr (test Negative code = U Cannab Scr) *NA*(11/28/2011 14:51:00) [facility] AllianceLkvuuupALJPCTWJL9165-56-13 19:51:00 Test Item Value Reference Range Interpretation Comments U Benzodia Scr (test Negative code = U Benzodia Scr) *NA*(11/28/2011 14:51:00) [facility] AllianceTujcgbmKLYDGJPBG9165-27-48 19:51:00 Test Item Value Reference Range Interpretation Comments UDS Note (test code = See Note UDS Note) 5*NA*(11/28/2011 14:51:00) [facility] AllianceRxlhdlrQDLJTGZMW9140-07-61 19:51:00 Test Item Value Reference Range Interpretation Comments U Phencyc Scr (test Negative code = U Phencyc Scr) *NA*(11/28/2011 14:51:00) [facility] AllianceLfomaqdQRMTORHEC8664-55-56 19:51:00 Test Item Value Reference Range Interpretation Comments U Kelly Scr (test code Negative *NA*(11/28/2011 = U Kelly Scr) 14:51:00) [facility] AllianceBdasbrbROSUONDSN5290-87-40 19:51:00 Test Item Value Reference Range Interpretation Comments U Amph Scr (test code Negative *NA*(11/28/2011 = U Amph Scr) 14:51:00) [facility] AlliancePgmcjbkDVDOIZVDX8537-19-31 19:51:00 Test Item Value Reference Range Interpretation Comments U Opiate Scr (test Negative code = U Opiate Scr) *NA*(11/28/2011 14:51:00) [facility] AllianceTrizlnlZFHDGZPHV7118-21-97 19:51:00 Test Item Value Reference Range Interpretation Comments U Cocaine Scr (test Negative code = U Cocaine Scr) *NA*(11/28/2011 14:51:00) [facility] AllianceXvdprdbPRGINHNZJ2611-61-24 19:51:00 Test Item Value Reference Range Interpretation Comments U Cannab Scr (test Negative code = U Cannab Scr) *NA*(11/28/2011 14:51:00) [facility] AllianceDphyncmYOYALADJK2047-43-67 19:51:00 Test Item Value Reference Range Interpretation Comments U Benzodia Scr (test Negative code = U Benzodia Scr) *NA*(11/28/2011 14:51:00) [facility] AllianceGhsaqwqGXAEITPRE7477-93-68 19:51:00 Test Item Value Reference Range Interpretation Comments UDS Note (test code = See Note UDS Note) 5*NA*(11/28/2011 14:51:00) [facility] AllianceYyozsxvOBSLIGRJI8009-01-70 19:51:00 Test Item Value Reference Range Interpretation Comments U Phencyc Scr (test Negative code = U Phencyc Scr) *NA*(11/28/2011 14:51:00) [facility] AllianceQvhabxrQRNAKJMBG0707-28-64 19:51:00 Test Item Value Reference Range Interpretation Comments U Kelly Scr (test code Negative *NA*(11/28/2011 = U Kelly Scr) 14:51:00) [facility] AllianceGwenorsQAZHMFUGY0488-74-11 19:51:00 Test Item Value Reference Range Interpretation Comments U Amph Scr (test code Negative *NA*(11/28/2011 = U Amph Scr) 14:51:00) [facility] AllianceYgjvpiePWNLKXEML9383-54-81 19:51:00 Test Item Value Reference Range Interpretation Comments U Opiate Scr (test Negative code = U Opiate Scr) *NA*(11/28/2011 14:51:00) [facility] AllianceVrpjmnqJZKYPKHGM2351-04-62 19:51:00 Test Item Value Reference Range Interpretation Comments U Cocaine Scr (test Negative code = U Cocaine Scr) *NA*(11/28/2011 14:51:00) [facility] AllianceBdsleazNXTIVZRLV7739-29-75 19:51:00 Test Item Value Reference Range Interpretation Comments U Cannab Scr (test Negative code = U Cannab Scr) *NA*(11/28/2011 14:51:00) [facility] AlliancePgtnqogTYYUKKWTC8488-03-49 19:51:00 Test Item Value Reference Range Interpretation Comments U Benzodia Scr (test Negative code = U Benzodia Scr) *NA*(11/28/2011 14:51:00) [facility] GLUCOSE VHSTVTB9691-70-73 16:20:00 Test Item Value Reference Range Interpretation Comments Comment1 (test code = Comment1) Ravi MAYS/ [facility] GLUCOSE QJAZFPX7427-28-95 16:20:00 Test Item Value Reference Range Interpretation Comments Gluc POC Lifscn (test code = Gluc POC 328 70-99 H [facility] GLUCOSE [id number] 16:20:00 Test Item Value Reference Range Interpretation Comments Comment1 (test code = Comment1) [facility] GLUCOSE [id number] 16:20:00 Test Item Value Reference Range Interpretation Comments Gluc POC [facility] (test code = Gluc POC 328 70-99 H [facility] GLUCOSE [id number] 16:20:00 Test Item Value Reference Range Interpretation Comments Comment1 (test code = Comment1) [facility] GLUCOSE [id number] 16:20:00 Test Item Value Reference Range Interpretation Comments Gluc POC [facility] (test code = Gluc POC 328 70-99 H [facility] GLUCOSE [id number] 16:20:00 Test Item Value Reference Range Interpretation Comments Comment1 (test code = Comment1) [facility] GLUCOSE [id number] 16:20:00 Test Item Value Reference Range Interpretation Comments Gluc POC [facility] (test code = Gluc POC 328 70-99 H [facility] GLUCOSE [id number] 16:20:00 Test Item Value Reference Range Interpretation Comments Comment1 (test code = Comment1) [facility] GLUCOSE [id number] 16:20:00 Test Item Value Reference Range Interpretation Comments Gluc POC [facility] (test code = Gluc POC 328 70-99 H [facility]) [facility]AqfqniqMWGMSYZQU5064-06-89 15:30:00 Test Item Value Reference Range Interpretation Comments U Preg (test code = U Negative (09/18/2011 N Preg) 10:30:00) [facility]aleAbpvehsQSMBXRUHNH5600-89-10 15:30:00 Test Item Value Reference Range Interpretation Comments UA WBC (test code = UA None Seen (09/18/2011 N WBC) 10:30:00) [facility]aleUuphpfvJHIELEPFML5774-49-48 15:30:00 Test Item Value Reference Range Interpretation Comments UA RBC (test None Seen See_Comment N [Automated mes pastor] code = UA RBC) (09/18/2011 The system ich 10:30:00) generated this result transmitted ref erence range: <=2. The reference range was not used to int erpret this result as normal/abnormal . [facility]AATBXMRNYZ2107-[facility]-45 15:30:00 Test Item Value Reference Range Interpretation Comments UA Bacteria (test code = None Seen (09/18/2011 N UA Bacteria) 10:30:00) [id number] 15:30:00 Test Item Value Reference Range Interpretation Comments UA Amorph Destiny (test Few /HPF A code = UA Amorph Destiny) *ABN*(09/18/2011 10:30:00) [facility]OrrpoomMSYVOUZCOJ7766-69-23 15:30:00 Test Item Value Reference Range Interpretation Comments Micro? (test code = Performed (09/18/2011 N Micro?) 10:30:00) [facility]aTdsfvlyUTHWKCAYZY8890-15-83 15:30:00 Test Item Value Reference Range Interpretation Comments UA Sq Epi (test code = Rare /LPF (09/18/2011 N UA Sq Epi) 10:30:00) [facility]aZslnvnhBKFXNQNDPL0262-14-69 15:30:00 Test Item Value Reference Range Interpretation Comments UA Ketones (test code = 15 mg/dL A UA Ketones) *ABN*(09/18/2011 10:30:00) [facility]GgcybviARWTCFKJOA1557-92-48 15:30:00 Test Item Value Reference Range Interpretation Comments UA Glucose (test code = >=1000 mg/dL A UA Glucose) *ABN*(09/18/2011 10:30:00) [facility] AllenUdovkboGYSPJCHEOX5222-64-10 15:30:00 Test Item Value Reference Range Interpretation Comments UA Protein (test code = Trace A UA Protein) *ABN*(09/18/2011 10:30:00) [facility] AllenJhxpmbfTVGNDKIXKK8701-05-10 15:30:00 Test Item Value Reference Range Interpretation Comments UA Urobilinogen (test code = UA 0.2 0.1-1.0 N Urobilinogen) [facility] AllenEdhsovkFBAREIHBJU7718-53-07 15:30:00 Test Item Value Reference Range Interpretation Comments UA Blood (test code = Negative (09/18/2011 N UA Blood) 10:30:00) [facility] AllenPnomxvxMMNFYLJAQH1699-58-37 15:30:00 Test Item Value Reference Range Interpretation Comments UA Bili (test code = Negative *NA*(09/18/2011 UA Bili) 10:30:00) [facility]HpqhpzqCWBDKLGXGP0644-68-82 15:30:00 Test Item Value Reference Range Interpretation Comments UA Leuk Est (test Negative (09/18/2011 N code = UA Leuk Est) 10:30:00) [facility]anoBcfsusnYQFDCGQQZP5580-01-16 15:30:00 Test Item Value Reference Range Interpretation Comments UA Nitrite (test code Negative (09/18/2011 N = UA Nitrite) 10:30:00) [facility]anoRgkprwzHQPFAHIAGM1932-85-61 15:30:00 Test Item Value Reference Range Interpretation Comments UA pH (test code = UA pH) 7.5 1 5.0-8.0 N [facility]anoRycrcfnVBZLOQWJFL5905-50-70 15:30:00 Test Item Value Reference Range Interpretation Comments UA Spec Grav (test code = UA Spec 1.010 1 N Grav) [facility]aleAbopnbiKAJEGCOLCX2791-98-37 15:30:00 Test Item Value Reference Range Interpretation Comments UA Turbidity (test code Slight Cloudy N = UA Turbidity) (09/18/2011 10:30:00) [facility]anoXecibkbMSJUZXNHAI3084-36-43 15:30:00 Test Item Value Reference Range Interpretation Comments UA Color (test code = Yellow *NA*(09/18/2011 UA Color) 10:30:00) [facility]aleSsxvlngHYAPNNJXS7088-54-15 15:30:00 Test Item Value Reference Range Interpretation Comments U Preg (test code = U Negative (09/18/2011 N Preg) 10:30:00) [facility] PlanoRglexivOATVJVDFZJ2575-64-76 15:30:00 Test Item Value Reference Range Interpretation Comments UA WBC (test code = UA None Seen (09/18/2011 N WBC) 10:30:00) [facility]anoEcgjmuoGGHYYWRNRK9080-63-55 15:30:00 Test Item Value Reference Range Interpretation Comments UA RBC (test None Seen See_Comment N [Automated mes pastor] code = UA RBC) (09/18/2011 The system wh ich 10:30:00) generated this result transmitted ref erence range: <=2. The reference range was not used to int erpret this result as normal/abnormal . [facility]anoWcqeimvKJEEXTPFBZ2225-00-75 15:30:00 Test Item Value Reference Range Interpretation Comments UA Bacteria (test code = None Seen (09/18/2011 N UA Bacteria) 10:30:00) [facility]CfyytykUBZXPQSAVB0053-93-61 15:30:00 Test Item Value Reference Range Interpretation Comments UA Amorph Destiny (test Few /HPF A code = UA Amorph Destiny) *ABN*(09/18/2011 10:30:00) [facility]aBishrckGQZHJZWAQN5433-35-14 15:30:00 Test Item Value Reference Range Interpretation Comments Micro? (test code = Performed (09/18/2011 N Micro?) 10:30:00) [facility]aGsigorgFMSAAYNOKR8901-50-11 15:30:00 Test Item Value Reference Range Interpretation Comments UA Sq Epi (test code = Rare /LPF (09/18/2011 N UA Sq Epi) 10:30:00) [facility]aAuqitlgWBFRFPGASF1510-40-66 15:30:00 Test Item Value Reference Range Interpretation Comments UA Ketones (test code = 15 mg/dL A UA Ketones) *ABN*(09/18/2011 10:30:00) [facility]aQempkfaFSKMXSIGWR5836-56-75 15:30:00 Test Item Value Reference Range Interpretation Comments UA Glucose (test code = >=1000 mg/dL A UA Glucose) *ABN*(09/18/2011 10:30:00) [facility]aKxicenrXCZMOKQMFQ5743-47-23 15:30:00 Test Item Value Reference Range Interpretation Comments UA Protein (test code = Trace A UA Protein) *ABN*(09/18/2011 10:30:00) [facility]aWfruaguYECSQIBBHD7476-35-36 15:30:00 Test Item Value Reference Range Interpretation Comments UA Urobilinogen (test code = UA 0.2 0.1-1.0 N Urobilinogen) [facility]aWysuzlrINLECMDHVE5687-34-46 15:30:00 Test Item Value Reference Range Interpretation Comments UA Blood (test code = Negative (09/18/2011 N UA Blood) 10:30:00) [facility]aRaebkqtFMZYSJBODQ0698-69-19 15:30:00 Test Item Value Reference Range Interpretation Comments UA Bili (test code = Negative *NA*(09/18/2011 UA Bili) 10:30:00) [facility]aEhobjjcJDZORRLZPD7548-19-48 15:30:00 Test Item Value Reference Range Interpretation Comments UA Leuk Est (test Negative (09/18/2011 N code = UA Leuk Est) 10:30:00) [facility] PlanoKelryukAWXCNIOEGX3613-96-85 15:30:00 Test Item Value Reference Range Interpretation Comments UA Nitrite (test code Negative (09/18/2011 N = UA Nitrite) 10:30:00) [facility] PlanoQokluxnNPHVFNJITT9794-68-48 15:30:00 Test Item Value Reference Range Interpretation Comments UA pH (test code = UA pH) 7.5 1 5.0-8.0 N [facility] PlanoVbnqhfgZXQWGZCHVC7897-24-46 15:30:00 Test Item Value Reference Range Interpretation Comments UA Spec Grav (test code = UA Spec 1.010 1 N Grav) [facility]RiysmtwUBUJAUYRIC4155-53-90 15:30:00 Test Item Value Reference Range Interpretation Comments UA Turbidity (test code Slight Cloudy N = UA Turbidity) (09/18/2011 10:30:00) [facility] AllenZlavmnzBJHHIOKLAW2852-08-22 15:30:00 Test Item Value Reference Range Interpretation Comments UA Color (test code = Yellow *NA*(09/18/2011 UA Color) 10:30:00) [facility]aleJsrfoukLTCJFAMNS1133-85-29 15:30:00 Test Item Value Reference Range Interpretation Comments U Preg (test code = U Negative (09/18/2011 N Preg) 10:30:00) [facility]aleJcfjcceKUOVIISASD8658-00-87 15:30:00 Test Item Value Reference Range Interpretation Comments UA WBC (test code = UA None Seen (09/18/2011 N WBC) 10:30:00) [facility] AllenYozydvnEZGYVCYBPR2027-84-33 15:30:00 Test Item Value Reference Range Interpretation Comments UA RBC (test None Seen See_Comment N [Automated mes pastor] code = UA RBC) (09/18/2011 The system ich 10:30:00) generated this result transmitted ref erence range: <=2. The reference range was not used to int erpret this result as normal/abnormal . [facility]aleMnmgtskSYGJJKOMAE0759-39-74 15:30:00 Test Item Value Reference Range Interpretation Comments UA Bacteria (test code = None Seen (09/18/2011 N UA Bacteria) 10:30:00) [facility] AllenHrtooflFGGECUWMBJ9869-32-59 15:30:00 Test Item Value Reference Range Interpretation Comments UA Amorph Destiny (test Few /HPF A code = UA Amorph Destiny) *ABN*(09/18/2011 10:30:00) [facility]aWejjijrDJAZMDQCAC0574-02-46 15:30:00 Test Item Value Reference Range Interpretation Comments Micro? (test code = Performed (09/18/2011 N Micro?) 10:30:00) [facility]aEbiwidgIKDAFTZHRO4879-44-57 15:30:00 Test Item Value Reference Range Interpretation Comments UA Sq Epi (test code = Rare /LPF (09/18/2011 N UA Sq Epi) 10:30:00) [facility]aSvehgvtQEDDQICVPX6749-14-44 15:30:00 Test Item Value Reference Range Interpretation Comments UA Ketones (test code = 15 mg/dL A UA Ketones) *ABN*(09/18/2011 10:30:00) [facility]aPbkbtuuJACXMJCMWW3587-72-86 15:30:00 Test Item Value Reference Range Interpretation Comments UA Glucose (test code = >=1000 mg/dL A UA Glucose) *ABN*(09/18/2011 10:30:00) [facility]aVxdmeplYCYOWCVBJU0027-75-69 15:30:00 Test Item Value Reference Range Interpretation Comments UA Protein (test code = Trace A UA Protein) *ABN*(09/18/2011 10:30:00) [facility]aJgenwmcYWGPTYJOHF4024-17-84 15:30:00 Test Item Value Reference Range Interpretation Comments UA Urobilinogen (test code = UA 0.2 0.1-1.0 N Urobilinogen) [facility]aQteoyswQZFIPSTVXE9494-49-95 15:30:00 Test Item Value Reference Range Interpretation Comments UA Blood (test code = Negative (09/18/2011 N UA Blood) 10:30:00) [facility]SpyqkhfQUKLSPUVCJ3675-13-26 15:30:00 Test Item Value Reference Range Interpretation Comments UA Bili (test code = Negative *NA*(09/18/2011 UA Bili) 10:30:00) [facility] AllenGnebavrNKODFEBVRT9572-18-07 15:30:00 Test Item Value Reference Range Interpretation Comments UA Leuk Est (test Negative (09/18/2011 N code = UA Leuk Est) 10:30:00) [facility]anoGkgwmlpRPSWCRQXQF3994-55-57 15:30:00 Test Item Value Reference Range Interpretation Comments UA Nitrite (test code Negative (09/18/2011 N = UA Nitrite) 10:30:00) [facility]anoSkobkxjJHHMRSQBSF5279-42-67 15:30:00 Test Item Value Reference Range Interpretation Comments UA pH (test code = UA pH) 7.5 1 5.0-8.0 N [facility] PlanoLdkmqfyJCLAORLRBG7411-19-32 15:30:00 Test Item Value Reference Range Interpretation Comments UA Spec Grav (test code = UA Spec 1.010 1 N Grav) [facility]aleXbbmgznIMGKLVZFNE2043-21-17 15:30:00 Test Item Value Reference Range Interpretation Comments UA Turbidity (test code Slight Cloudy N = UA Turbidity) (09/18/2011 10:30:00) [facility] AllenRepqmfvLMSHMINQUO9546-50-17 15:30:00 Test Item Value Reference Range Interpretation Comments UA Color (test code = Yellow *NA*(09/18/2011 UA Color) 10:30:00) [facility]aleAxrvrmfRHXIPPZGE5324-95-98 15:30:00 Test Item Value Reference Range Interpretation Comments U Preg (test code = U Negative (09/18/2011 N Preg) 10:30:00) [facility]aleRzntxgmJYYZGKLTJZ9925-79-70 15:30:00 Test Item Value Reference Range Interpretation Comments UA WBC (test code = UA None Seen (09/18/2011 N WBC) 10:30:00) [facility]aleNhsohkhMWEPABAVKD1792-97-49 15:30:00 Test Item Value Reference Range Interpretation Comments UA RBC (test None Seen See_Comment N [Automated mes pastor] code = UA RBC) (09/18/2011 The system wh ich 10:30:00) generated this result transmitted ref erence range: <=2. The reference range was not used to int erpret this result as normal/abnormal . [facility]valeRititqbDRNKZWDDPR1763-56-00 15:30:00 Test Item Value Reference Range Interpretation Comments UA Bacteria (test code = None Seen (09/18/2011 N UA Bacteria) 10:30:00) [facility]valeZfarwuvEKRETZSITI1535-28-69 15:30:00 Test Item Value Reference Range Interpretation Comments UA Amorph Destiny (test Few /HPF A code = UA Amorph Destiny) *ABN*(09/18/2011 10:30:00) [facility] AllenMomjwevFTMAGRRWZB1954-71-37 15:30:00 Test Item Value Reference Range Interpretation Comments Micro? (test code = Performed (09/18/2011 N Micro?) 10:30:00) [facility]aCkppqurIDDTJBNJFX8797-35-71 15:30:00 Test Item Value Reference Range Interpretation Comments UA Sq Epi (test code = Rare /LPF (09/18/2011 N UA Sq Epi) 10:30:00) [facility]aYvtndpvHOVRKDPSSP6599-87-58 15:30:00 Test Item Value Reference Range Interpretation Comments UA Ketones (test code = 15 mg/dL A UA Ketones) *ABN*(09/18/2011 10:30:00) [facility]aFjthzwhYEHVGZVTEL5489-28-56 15:30:00 Test Item Value Reference Range Interpretation Comments UA Glucose (test code = >=1000 mg/dL A UA Glucose) *ABN*(09/18/2011 10:30:00) [facility]aUdbvkaaTLFEYSKJUB3881-42-99 15:30:00 Test Item Value Reference Range Interpretation Comments UA Protein (test code = Trace A UA Protein) *ABN*(09/18/2011 10:30:00) [facility]aHuissbiLOVTEVIEUJ6844-26-89 15:30:00 Test Item Value Reference Range Interpretation Comments UA Urobilinogen (test code = UA 0.2 0.1-1.0 N Urobilinogen) [facility]aUblnkcxNCRTFVZHJR2914-90-10 15:30:00 Test Item Value Reference Range Interpretation Comments UA Blood (test code = Negative (09/18/2011 N UA Blood) 10:30:00) [facility]aKackzcvWJAZXDUGRR4968-40-18 15:30:00 Test Item Value Reference Range Interpretation Comments UA Bili (test code = Negative *NA*(09/18/2011 UA Bili) 10:30:00) [facility]aNntmmchWTKFTIKYEP5862-18-36 15:30:00 Test Item Value Reference Range Interpretation Comments UA Leuk Est (test Negative (09/18/2011 N code = UA Leuk Est) 10:30:00) [facility]aIqxwyupODVWCFAEAT1228-72-23 15:30:00 Test Item Value Reference Range Interpretation Comments UA Nitrite (test code Negative (09/18/2011 N = UA Nitrite) 10:30:00) [facility]anoAemvhgaRIDRAYSSUZ2705-23-26 15:30:00 Test Item Value Reference Range Interpretation Comments UA pH (test code = UA pH) 7.5 1 5.0-8.0 N [facility] PlanoYrmulazUKWKQUESOC2018-35-88 15:30:00 Test Item Value Reference Range Interpretation Comments UA Spec Grav (test code = UA Spec 1.010 1 N Grav) [facility]valeSucnlrjEBTIGHSLDX7346-32-40 15:30:00 Test Item Value Reference Range Interpretation Comments UA Turbidity (test code Slight Cloudy N = UA Turbidity) (09/18/2011 10:30:00) [facility]DcxmhygIDVTVLVJXX0668-23-92 15:30:00 Test Item Value Reference Range Interpretation Comments UA Color (test code = Yellow *NA*(09/18/2011 UA Color) 10:30:00) [facility]valeNdekeulKLSYLZSDR1659-97-68 15:30:00 Test Item Value Reference Range Interpretation Comments U Preg (test code = U Negative (09/18/2011 N Preg) 10:30:00) [facility]valeXpfifgeEOFSOBVXKB4148-13-80 15:30:00 Test Item Value Reference Range Interpretation Comments UA WBC (test code = UA None Seen (09/18/2011 N WBC) 10:30:00) [facility]aleVmicrzpIDTTCOHNTF2920-43-75 15:30:00 Test Item Value Reference Range Interpretation Comments UA RBC (test None Seen See_Comment N [Automated mes pastor] code = UA RBC) (09/18/2011 The system ich 10:30:00) generated this result transmitted ref erence range: <=2. The reference range was not used to int erpret this result as normal/abnormal . [facility] PlanoNwuzecaJOJWTIPRFE2124-91-34 15:30:00 Test Item Value Reference Range Interpretation Comments UA Bacteria (test code = None Seen (09/18/2011 N UA Bacteria) 10:30:00) [facility] PlanoWplcwzdMAOJNELGWX5304-18-72 15:30:00 Test Item Value Reference Range Interpretation Comments UA Amorph Destiny (test Few /HPF A code = UA Amorph Destiny) *ABN*(09/18/2011 10:30:00) [facility]aMaoxnvtMKCVBONHSK9943-23-60 15:30:00 Test Item Value Reference Range Interpretation Comments Micro? (test code = Performed (09/18/2011 N Micro?) 10:30:00) [facility]aHilbgzbMCHVLNFIRV0731-93-75 15:30:00 Test Item Value Reference Range Interpretation Comments UA Sq Epi (test code = Rare /LPF (09/18/2011 N UA Sq Epi) 10:30:00) [facility]aEbtvkhkITPMZMNUBU8802-95-42 15:30:00 Test Item Value Reference Range Interpretation Comments UA Ketones (test code = 15 mg/dL A UA Ketones) *ABN*(09/18/2011 10:30:00) [facility]aFwfgkliKRDAGOWLNP5612-82-12 15:30:00 Test Item Value Reference Range Interpretation Comments UA Glucose (test code = >=1000 mg/dL A UA Glucose) *ABN*(09/18/2011 10:30:00) [facility]aGqmucyoVKJPBRXYUM3109-79-67 15:30:00 Test Item Value Reference Range Interpretation Comments UA Protein (test code = Trace A UA Protein) *ABN*(09/18/2011 10:30:00) [facility]aAkrmoclFICIDXQYWJ2649-00-23 15:30:00 Test Item Value Reference Range Interpretation Comments UA Urobilinogen (test code = UA 0.2 0.1-1.0 N Urobilinogen) [facility]aSztwcqrRDNRSVINEG8370-65-68 15:30:00 Test Item Value Reference Range Interpretation Comments UA Blood (test code = Negative (09/18/2011 N UA Blood) 10:30:00) [facility]aNgvexsaWPAVHKSAMN3786-53-94 15:30:00 Test Item Value Reference Range Interpretation Comments UA Bili (test code = Negative *NA*(09/18/2011 UA Bili) 10:30:00) [facility]aVkrafanWXVABDWXGT5170-26-56 15:30:00 Test Item Value Reference Range Interpretation Comments UA Leuk Est (test Negative (09/18/2011 N code = UA Leuk Est) 10:30:00) [facility]aGhvfyqdBGZBSHJSPO9141-18-18 15:30:00 Test Item Value Reference Range Interpretation Comments UA Nitrite (test code Negative (09/18/2011 N = UA Nitrite) 10:30:00) [facility]aMygwbojLBHQHPPUWO8712-48-26 15:30:00 Test Item Value Reference Range Interpretation Comments UA pH (test code = UA pH) 7.5 1 5.0-8.0 N [facility]aPslcwxvBMGWUWINKS0387-97-08 15:30:00 Test Item Value Reference Range Interpretation Comments UA Spec Grav (test code = UA Spec 1.010 1 N Grav) [facility]aUuxvngnKYHRNIUYGI5366-49-61 15:30:00 Test Item Value Reference Range Interpretation Comments UA Turbidity (test code Slight Cloudy N = UA Turbidity) (09/18/2011 10:30:00) [facility]aZiukmraOEWULPVTXC5689-27-54 15:30:00 Test Item Value Reference Range Interpretation Comments UA Color (test code = Yellow *NA*(09/18/2011 UA Color) 10:30:00) [facility] AllianceTiziovtWDQYFKFMU9025-50-47 14:07:00 Test Item Value Reference Range Interpretation Comments Phosphorus (test code = Phosphorus) 4.4 2.5-4.5 N [facility] AllianceBdhgkqfLSWGIOJPU9240-27-86 14:07:00 Test Item Value Reference Range Interpretation Comments Magnesium Lvl (test code = Magnesium 1.6 1.8-2.4 L Lvl) [facility] AllianceLeplwxmIRJKQKPCP0154-15-73 14:07:00 Test Item Value Reference Range Interpretation Comments Phosphorus (test code = Phosphorus) 4.4 2.5-4.5 N [facility] AllianceSozukguRMKLGVAJN2997-63-22 14:07:00 Test Item Value Reference Range Interpretation Comments Magnesium Lvl (test code = Magnesium 1.6 1.8-2.4 L Lvl) [facility] AllianceIfvmhpkDKLDIYMUR9590-93-66 14:07:00 Test Item Value Reference Range Interpretation Comments Phosphorus (test code = Phosphorus) 4.4 2.5-4.5 N [facility] AllianceRapsygsGMFOBKDCZ0802-59-80 14:07:00 Test Item Value Reference Range Interpretation Comments Magnesium Lvl (test code = Magnesium 1.6 1.8-2.4 L Lvl) [facility] AllianceGwgmvyhEWPDMOZHU9315-59-35 14:07:00 Test Item Value Reference Range Interpretation Comments Phosphorus (test code = Phosphorus) 4.4 2.5-4.5 N [facility] AllianceCcthksrBJGIRWPPW0444-57-12 14:07:00 Test Item Value Reference Range Interpretation Comments Magnesium Lvl (test code = Magnesium 1.6 1.8-2.4 L Lvl) [facility] AllianceSajdcitFKLNZWQGZ9693-41-54 14:07:00 Test Item Value Reference Range Interpretation Comments Phosphorus (test code = Phosphorus) 4.4 2.5-4.5 N [facility] AllianceSzatcguGSQZECMEY7913-12-05 14:07:00 Test Item Value Reference Range Interpretation Comments Magnesium Lvl (test code = Magnesium 1.6 1.8-2.4 L Lvl) [facility] [id number] 14:01:00 Test Item Value Reference Range Interpretation Comments Gluc POC [facility] (test code = Gluc POC no gt 70-99 A [facility]) [facility] GLU[facility]SE [id number] 14:01:00 Test Item Value Reference Range Interpretation Comments Gluc POC [facility] (test code = Gluc POC no gt 70-99 A [facility]) [facility] GLUCOSE [id number] 14:01:00 Test Item Value Reference Range Interpretation Comments Gluc POC [facility] (test code = Gluc POC no gt 70-99 A [facility]) [facility] GLUCOSE [id number] 14:01:00 Test Item Value Reference Range Interpretation Comments Gluc POC [facility] (test code = Gluc POC no gt 70-99 A [facility]) [facility] GLUCOSE [id number] 14:01:00 Test Item Value Reference Range Interpretation Comments Gluc POC [facility] (test code = Gluc POC no gt 70-99 A [facility]) [facility] AllianceLiabyeaXVPRUHRJN4650-60-46 13:52:00 Test Item Value Reference Range Interpretation Comments pO2 Roberth (test code = pO2 Roberth) 24 20-49 N [facility] AllianceFqulfemWVKXLOIDC8768-39-40 13:52:00 Test Item Value Reference Range Interpretation Comments HCO3 Roberth (test code = HCO3 Roberth) 32.0 22.0-26.0 H [facility] AllianceCcmpqgbQKARVMXCB2065-00-75 13:52:00 Test Item Value Reference Range Interpretation Comments pCO2 Roberth (test code = pCO2 Roberth) 44 38-52 N [facility] AllianceEjevzsvKFSWCJFHQ0580-80-04 13:52:00 Test Item Value Reference Range Interpretation Comments BE Roberth (test code = 7 See_Comment H [Automa rohit message] The BE Roberth) system which ge nerated this result transmit rohit reference range : <=2. The reference range was not used to interpr et this result as reji l/abnormal. [facility] AllianceBwmfictSYUKRLWAB3621-07-01 13:52:00 Test Item Value Reference Range Interpretation Comments O2 Sat Roberth (test code = O2 Sat Roberth) 48.0 40.0-70.0 N [facility] AllianceSyryexcMOFCYPFOS4418-14-51 13:52:00 Test Item Value Reference Range Interpretation Comments Temp Roberth (test code = Temp Roberth) 37.0 [facility] AllianceQsdzffhPFCLBISAD4982-67-22 13:52:00 Test Item Value Reference Range Interpretation Comments pH Roberth (test code = pH Roberth) 7.47 7.28-7.42 H [facility] AllianceVpnmovrAXIACRIAW8128-97-59 13:52:00 Test Item Value Reference Range Interpretation Comments Calcium Lvl (test code = Calcium Lvl) 10.1 8.5-10.5 N [facility] AllianceNsxuewgKVQTOHJRW6754-81-59 13:52:00 Test Item Value Reference Range Interpretation Comments Chloride Lvl (test code = Chloride Lvl) 92 95-109 L [facility] AllianceMuvluklMVETTOYIR1838-94-19 13:52:00 Test Item Value Reference Range Interpretation Comments CO2 (test code = CO2) 30 24-32 N [facility] AllianceJzffgkzEVKATBRFI0099-65-19 13:52:00 Test Item Value Reference Range Interpretation Comments Potassium Lvl (test code = Potassium 3.5 3.5-5.1 N Lvl) [facility] AllianceSeokiazRCUSTCRFA5767-09-82 13:52:00 Test Item Value Reference Range Interpretation Comments Sodium Lvl (test code = Sodium Lvl) 133 135-145 L [facility] AllianceBpyrovtJYBNPTOWN2571-86-80 13:52:00 Test Item Value Reference Range Interpretation Comments Creatinine Lvl (test code = Creatinine 1.3 0.5-1.4 N Lvl) [facility] AllianceDmmjwztULUXCZBCT9589-32-83 13:52:00 Test Item Value Reference Range Interpretation Comments Glucose Lvl (test code = Glucose Lvl) 383 70-99 H [facility] AllianceUdxlrdvFPWYVFQVN8957-62-53 13:52:00 Test Item Value Reference Range Interpretation Comments BUN (test code = BUN) 17 7-22 N [facility] AllianceZdmtxbsYTWLBJUDW1960-59-67 13:52:00 Test Item Value Reference Range Interpretation Comments AGAP (test code = AGAP) 14.5 10.0-20.0 N [facility]XejcjhsXBJEARJXCQ9232-38-78 13:52:00 Test Item Value Reference Range Interpretation Comments MPV (test code = MPV) 12.0 7.4-10.4 H [facility] HospitalVnlclhnRXOHQVLEWP6807-96-39 13:52:00 Test Item Value Reference Range Interpretation Comments Platelet (test code = Platelet) 226 133-450 N [facility] HospitalPhfxzrkBXMSYGGPHV6439-87-55 13:52:00 Test Item Value Reference Range Interpretation Comments MCHC (test code = MCHC) 33.7 32.0-36.0 N [facility] HospitalFecxjplIDFTZMQTWV6278-72-08 13:52:00 Test Item Value Reference Range Interpretation Comments MCH (test code = MCH) 28.5 pg 27.0-31.0 N [facility] HospitalHevcqxaLPEZDRHQBC2670-85-77 13:52:00 Test Item Value Reference Range Interpretation Comments RDW (test code = RDW) 15.1 11.5-14.5 H [facility] HospitalPverhkmWZQAPRHKCK5861-22-78 13:52:00 Test Item Value Reference Range Interpretation Comments MCV (test code = MCV) 84.6 81.0-99.0 N [facility] HospitalQstmgqxXIMMODHWOB7809-64-89 13:52:00 Test Item Value Reference Range Interpretation Comments Hct (test code = Hct) 36.4 36.0-48.0 N [facility] HospitalDjnjlchIXWKPDGGYJ9202-80-31 13:52:00 Test Item Value Reference Range Interpretation Comments Hgb (test code = Hgb) 12.3 12.0-16.0 N [facility] HospitalFxulpdmWATZFACVUF4845-15-17 13:52:00 Test Item Value Reference Range Interpretation Comments RBC (test code = RBC) 4.30 4.20-5.40 N [facility] HospitalBanphqxCUYAGXIAPQ9346-79-05 13:52:00 Test Item Value Reference Range Interpretation Comments WBC (test code = WBC) 11.7 3.7-10.4 H [facility] HospitalBliraeyAVJBUMQSEO5427-26-83 13:52:00 Test Item Value Reference Range Interpretation Comments Monocytes (test code = Monocytes) 2.9 2.0-12.0 N [address]03-30 13:52:00 Test Item Value Reference Range Interpretation Comments Eosinophils (test code = 0.2 See_Comment N [A utomated message] The Eosinophils) system which ge nerated this result tra nsmitted reference range : <=4.0. The reference r leo was not used to int erpret this result as normal/abnormal . [facility] HospitalKgentqyCARSJHQRUE2295-26-03 13:52:00 Test Item Value Reference Range Interpretation Comments Basophils (test code = 0.0 See_Comment N [Aut omated message] The Basophils) system which ge nerated this result tra nsmitted reference range : <=1.0. The reference r leo was not used to int erpret this result as normal/abnormal . [facility] HospitalGgipmzpLYHCZOTWLA9558-83-33 13:52:00 Test Item Value Reference Range Interpretation Comments Eosinophils # (test code 0.0 See_Comment N [A utomated message] The = Eosinophils #) system whic h generated this result tra nsmitted reference range : <=0.5. The reference r leo was not used to int erpret this result as normal/abnormal . [facility] HospitalRekkdwzPZTAFRNFQB3314-86-21 13:52:00 Test Item Value Reference Range Interpretation Comments Monocytes # (test code 0.3 See_Comment N [Aut omated message] The = Monocytes #) system which generated this result tra nsmitted reference range : <=0.8. The reference r leo was not used to int erpret this result as normal/abnormal . [facility] HospitalCkjciflLFSEXCRXMQ4156-69-31 13:52:00 Test Item Value Reference Range Interpretation Comments Segs (test code = Segs) 92.0 45.0-75.0 H [facility] HospitalFoilqvfTWKZQNGVXN4093-71-90 13:52:00 Test Item Value Reference Range Interpretation Comments Lymphocytes (test code = Lymphocytes) 4.9 20.0-40.0 L [facility] HospitalEptrbxnUJFRIRNUZS8237-15-30 13:52:00 Test Item Value Reference Range Interpretation Comments Spherocyte (test code = Rare A Spherocyte) *ABN*(09/18/2011 08:52:00) [facility] HospitalBnmvkyrCCGXLNCGCJ8474-33-80 13:52:00 Test Item Value Reference Range Interpretation Comments Large Plt (test code = Slight *ABN*(09/18/2011 A Large Plt) 08:52:00) [facility] HospitalUrumpwqRBBBXNZYBO0935-71-90 13:52:00 Test Item Value Reference Range Interpretation Comments Microcyte (test code = 1+ *ABN*(09/18/2011 A Microcyte) 08:52:00) [facility] HospitalSlrwipqBYOJEEOQFS8831-10-68 13:52:00 Test Item Value Reference Range Interpretation Comments Schistocyte (test code = Schistocyte) Rare [facility] HospitalAznwwvwRFQWZZJJOO4407-30-36 13:52:00 Test Item Value Reference Range Interpretation Comments Macrocyte (test code = 1+ *ABN*(09/18/2011 A Macrocyte) 08:52:00) [facility] HospitalZifbuucFSNGWYHPSC8944-79-13 13:52:00 Test Item Value Reference Range Interpretation Comments Lymphocytes # (test code = Lymphocytes 0.6 1.0-5.5 L #) [facility] HospitalNvjgoyeORPVBEIXJF4730-03-49 13:52:00 Test Item Value Reference Range Interpretation Comments Segs-Bands # (test code = Segs-Bands #) 10.8 1.5-8.1 H [facility] HospitalUghjimrAJERRUMLPS9098-88-12 13:52:00 Test Item Value Reference Range Interpretation Comments Basophils # (test code 0.0 See_Comment N [Aut omated message] The = Basophils #) system which generated this result tra nsmitted reference range : <=0.2. The reference r leo was not used to int erpret this result as normal/abnormal . [facility] HospitalXodmjclWLBVJMTVWF9671-66-41 13:52:00 Test Item Value Reference Range Interpretation Comments Anisocyte (test code = 1+ *ABN*(09/18/2011 A Anisocyte) 08:52:00) [facility]LvtldctWQIHXMKKYR6021-65-80 13:52:00 Test Item Value Reference Range Interpretation Comments CDC-HIV 1/2 Ab (test Negative *NA*(09/18/2011 code = CDC-HIV 1/2 08:52:00) Ab) [facility] AllianceYxqxjedQEUVYXKGU7725-94-75 13:52:00 Test Item Value Reference Range Interpretation Comments pO2 Roberth (test code = pO2 Roberth) 24 20-49 N [facility] AllianceQolbipdTAVKYLNBW5925-30-65 13:52:00 Test Item Value Reference Range Interpretation Comments HCO3 Roberth (test code = HCO3 Roberth) 32.0 22.0-26.0 H [facility] AllianceRexbsfiBTTWJDDNA6546-85-11 13:52:00 Test Item Value Reference Range Interpretation Comments pCO2 Roberth (test code = pCO2 Roberth) 44 38-52 N [facility] AllianceEljpoxxLBQJNBNID6644-71-84 13:52:00 Test Item Value Reference Range Interpretation Comments BE Roberth (test code = 7 See_Comment H [Automa rohit message] The BE Roberth) system which ge nerated this result transmit rohit reference range : <=2. The reference range was not used to interpr et this result as reji l/abnormal. [facility] AllianceCluqdwuPUHCPOMMP6717-95-79 13:52:00 Test Item Value Reference Range Interpretation Comments O2 Sat Roberth (test code = O2 Sat Roberth) 48.0 40.0-70.0 N [facility] AlliancePycriazFEJPZSDQK8096-54-70 13:52:00 Test Item Value Reference Range Interpretation Comments Temp Roberth (test code = Temp Roberth) 37.0 [facility] AllianceUbrdjkjFDOXQUCLR4765-23-96 13:52:00 Test Item Value Reference Range Interpretation Comments pH Roberth (test code = pH Roberth) 7.47 7.28-7.42 H [facility] AllianceCnpwafiBWHEYGDKV8872-17-63 13:52:00 Test Item Value Reference Range Interpretation Comments Calcium Lvl (test code = Calcium Lvl) 10.1 8.5-10.5 N [facility] AllianceYedxpylKSKXMMLYJ7726-73-15 13:52:00 Test Item Value Reference Range Interpretation Comments Chloride Lvl (test code = Chloride Lvl) 92 95-109 L [facility] AllianceVlhizyzMKWWUDSFE3013-86-02 13:52:00 Test Item Value Reference Range Interpretation Comments CO2 (test code = CO2) 30 24-32 N [facility] AllianceBfqsymbALGQTQIUT7381-61-54 13:52:00 Test Item Value Reference Range Interpretation Comments Potassium Lvl (test code = Potassium 3.5 3.5-5.1 N Lvl) [facility] AllianceBjbjykzVIRQKZTHE5150-94-25 13:52:00 Test Item Value Reference Range Interpretation Comments Sodium Lvl (test code = Sodium Lvl) 133 135-145 L [facility] AllianceAwcpxhdTQVSYTPXQ3699-89-33 13:52:00 Test Item Value Reference Range Interpretation Comments Creatinine Lvl (test code = Creatinine 1.3 0.5-1.4 N Lvl) [facility] AllianceLuyxaslWMDZXWIWA4100-65-58 13:52:00 Test Item Value Reference Range Interpretation Comments Glucose Lvl (test code = Glucose Lvl) 383 70-99 H [facility] AllianceNmkdzyyKBGYKFRTG0475-71-61 13:52:00 Test Item Value Reference Range Interpretation Comments BUN (test code = BUN) 17 7-22 N [facility] AllianceLdekkasAYRZGCEXK5649-54-01 13:52:00 Test Item Value Reference Range Interpretation Comments AGAP (test code = AGAP) 14.5 10.0-20.0 N [facility] HospitalKpdcdcjAAYCITJGOU7006-94-60 13:52:00 Test Item Value Reference Range Interpretation Comments MPV (test code = MPV) 12.0 7.4-10.4 H [facility] HospitalRtrvtkiFQMXIANKFC7287-97-28 13:52:00 Test Item Value Reference Range Interpretation Comments Platelet (test code = Platelet) 226 133-450 N [facility] HospitalSecqjwsHTCCUIHFOS5023-93-22 13:52:00 Test Item Value Reference Range Interpretation Comments MCHC (test code = MCHC) 33.7 32.0-36.0 N [facility] HospitalPznopehWJDDOMNGJX3730-72-18 13:52:00 Test Item Value Reference Range Interpretation Comments MCH (test code = MCH) 28.5 pg 27.0-31.0 N [facility] HospitalQvrddyaCHNPMMFITW3334-22-96 13:52:00 Test Item Value Reference Range Interpretation Comments RDW (test code = RDW) 15.1 11.5-14.5 H [facility] HospitalLhszmgvDYZNOVPFNC5450-32-58 13:52:00 Test Item Value Reference Range Interpretation Comments MCV (test code = MCV) 84.6 81.0-99.0 N [facility] HospitalOmkyegeFQELEDGQRQ3275-37-38 13:52:00 Test Item Value Reference Range Interpretation Comments Hct (test code = Hct) 36.4 36.0-48.0 N [facility] HospitalBmwburbLBTMXAAEGL4047-69-96 13:52:00 Test Item Value Reference Range Interpretation Comments Hgb (test code = Hgb) 12.3 12.0-16.0 N [facility] HospitalGzytxehFDESFXDPAW5651-77-80 13:52:00 Test Item Value Reference Range Interpretation Comments RBC (test code = RBC) 4.30 4.20-5.40 N [facility] HospitalBdhchjjMYKBLOMRKT5057-35-07 13:52:00 Test Item Value Reference Range Interpretation Comments WBC (test code = WBC) 11.7 3.7-10.4 H [facility] HospitalRnowsclXGDXLBERXH5698-39-03 13:52:00 Test Item Value Reference Range Interpretation Comments Monocytes (test code = Monocytes) 2.9 2.0-12.0 N [facility] HospitalLipeyvyUEAMWXMEBD8098-38-10 13:52:00 Test Item Value Reference Range Interpretation Comments Eosinophils (test code = 0.2 See_Comment N [A utomated message] The Eosinophils) system which ge nerated this result tra nsmitted reference range : <=4.0. The reference r leo was not used to int erpret this result as normal/abnormal . [facility] HospitalJdylbezCYQKPECQAW6899-27-88 13:52:00 Test Item Value Reference Range Interpretation Comments Basophils (test code = 0.0 See_Comment N [Aut omated message] The Basophils) system which ge nerated this result tra nsmitted reference range : <=1.0. The reference r leo was not used to int erpret this result as normal/abnormal . [facility] HospitalOkzzrwqXSRHEOYNSR9400-97-12 13:52:00 Test Item Value Reference Range Interpretation Comments Eosinophils # (test code 0.0 See_Comment N [A utomated message] The = Eosinophils #) system whic h generated this result tra nsmitted reference range : <=0.5. The reference r leo was not used to int erpret this result as normal/abnormal . [facility] HospitalCehiawbIBUHCZRCZV7403-37-96 13:52:00 Test Item Value Reference Range Interpretation Comments Monocytes # (test code 0.3 See_Comment N [Aut omated message] The = Monocytes #) system which generated this result tra nsmitted reference range : <=0.8. The reference r leo was not used to int erpret this result as normal/abnormal . [facility] HospitalHnjcabwKALRFIPRTR0399-53-72 13:52:00 Test Item Value Reference Range Interpretation Comments Segs (test code = Segs) 92.0 45.0-75.0 H [facility] HospitalVsplbxtFOAILHJKIQ3402-15-14 13:52:00 Test Item Value Reference Range Interpretation Comments Lymphocytes (test code = Lymphocytes) 4.9 20.0-40.0 L [facility] HospitalRbhqfvoEMIENFUSTG5649-61-31 13:52:00 Test Item Value Reference Range Interpretation Comments Spherocyte (test code = Rare A Spherocyte) *ABN*(09/18/2011 08:52:00) [facility] HospitalWwpioroTZNWXOSBUW9168-85-11 13:52:00 Test Item Value Reference Range Interpretation Comments Large Plt (test code = Slight *ABN*(09/18/2011 A Large Plt) 08:52:00) [facility] HospitalZolmbykZDFVMTMXHJ0063-38-47 13:52:00 Test Item Value Reference Range Interpretation Comments Microcyte (test code = 1+ *ABN*(09/18/2011 A Microcyte) 08:52:00) [facility] HospitalLsylmkgILOEOYRRFA7115-34-49 13:52:00 Test Item Value Reference Range Interpretation Comments Schistocyte (test code = Schistocyte) Rare [facility] HospitalJriowloSDEKMOODAD9224-84-39 13:52:00 Test Item Value Reference Range Interpretation Comments Macrocyte (test code = 1+ *ABN*(09/18/2011 A Macrocyte) 08:52:00) [facility] HospitalEibavhsODLNSTMIQD4504-71-39 13:52:00 Test Item Value Reference Range Interpretation Comments Lymphocytes # (test code = Lymphocytes 0.6 1.0-5.5 L #) [facility] HospitalMzunmwsOVVTABJWNO9310-36-30 13:52:00 Test Item Value Reference Range Interpretation Comments Segs-Bands # (test code = Segs-Bands #) 10.8 1.5-8.1 H [facility] HospitalEkmcnnrWDGZRDMVIQ7998-25-06 13:52:00 Test Item Value Reference Range Interpretation Comments Basophils # (test code 0.0 See_Comment N [Aut omated message] The = Basophils #) system which generated this result tra nsmitted reference range : <=0.2. The reference r leo was not used to int erpret this result as normal/abnormal . [facility] HospitalIwqrndtGEENJBMPXG8095-56-09 13:52:00 Test Item Value Reference Range Interpretation Comments Anisocyte (test code = 1+ *ABN*(09/18/2011 A Anisocyte) 08:52:00) [facility]IlrfezsADEBMPUNZM2883-46-56 13:52:00 Test Item Value Reference Range Interpretation Comments CDC-HIV 1/2 Ab (test Negative *NA*(09/18/2011 code = CDC-HIV 1/2 08:52:00) Ab) [facility] AllianceKiktehsIOWPTECCS1799-30-85 13:52:00 Test Item Value Reference Range Interpretation Comments pO2 Roberth (test code = pO2 Roberth) 24 20-49 N [facility] AllianceCeqqczdIBQPTHQFD4570-35-08 13:52:00 Test Item Value Reference Range Interpretation Comments HCO3 Roberth (test code = HCO3 Roberth) 32.0 22.0-26.0 H [facility] AllianceJkxkjfvPKNRKRYKQ7979-55-18 13:52:00 Test Item Value Reference Range Interpretation Comments pCO2 Roberth (test code = pCO2 Roberth) 44 38-52 N [facility] AlliancePsfbvlwTOVLMDPYX7093-40-01 13:52:00 Test Item Value Reference Range Interpretation Comments BE Roberth (test code = 7 See_Comment H [Automa rohit message] The BE Roberth) system which ge nerated this result transmit rohit reference range : <=2. The reference range was not used to interpr et this result as reji l/abnormal. [facility] AllianceYwpwwraQOHFVIXGZ5477-39-96 13:52:00 Test Item Value Reference Range Interpretation Comments O2 Sat Roberth (test code = O2 Sat Roberth) 48.0 40.0-70.0 N [facility] AllianceXuuqqmvXOSLJNWKK7379-76-81 13:52:00 Test Item Value Reference Range Interpretation Comments Temp Roberth (test code = Temp Roberth) 37.0 [facility] AllianceCnyiclwFZCDDHDSE2986-92-39 13:52:00 Test Item Value Reference Range Interpretation Comments pH Roberth (test code = pH Roberth) 7.47 7.28-7.42 H [facility] AllianceAjgqqluJDAFIHTFB7208-51-67 13:52:00 Test Item Value Reference Range Interpretation Comments Calcium Lvl (test code = Calcium Lvl) 10.1 8.5-10.5 N [facility] AllianceApjbrpmEASYGVZGQ7828-71-99 13:52:00 Test Item Value Reference Range Interpretation Comments Chloride Lvl (test code = Chloride Lvl) 92 95-109 L [facility] AllianceFrpkqupXNYDYXUTE9731-89-40 13:52:00 Test Item Value Reference Range Interpretation Comments CO2 (test code = CO2) 30 24-32 N [facility] AllianceRnrnuwcTBNEEFHAP9179-70-79 13:52:00 Test Item Value Reference Range Interpretation Comments Potassium Lvl (test code = Potassium 3.5 3.5-5.1 N Lvl) [facility] AllianceRqjsrvaFQWOYKWFT3334-03-70 13:52:00 Test Item Value Reference Range Interpretation Comments Sodium Lvl (test code = Sodium Lvl) 133 135-145 L [facility] AllianceKmqybbnBSZOWUZTC9533-87-77 13:52:00 Test Item Value Reference Range Interpretation Comments Creatinine Lvl (test code = Creatinine 1.3 0.5-1.4 N Lvl) [facility] AllianceZgofxkhACLNAGYKC9558-34-79 13:52:00 Test Item Value Reference Range Interpretation Comments Glucose Lvl (test code = Glucose Lvl) 383 70-99 H [facility] AllianceAzyulceRPRVCLFAS4781-18-92 13:52:00 Test Item Value Reference Range Interpretation Comments BUN (test code = BUN) 17 7-22 N [facility] AllianceCjzkpisCHSOZKKBX9151-12-68 13:52:00 Test Item Value Reference Range Interpretation Comments AGAP (test code = AGAP) 14.5 10.0-20.0 N [facility] HospitalZqgiwarKTEUDVFBDW9207-30-28 13:52:00 Test Item Value Reference Range Interpretation Comments MPV (test code = MPV) 12.0 7.4-10.4 H [facility] HospitalZfpjkgqVSEQDHAIWL2919-46-34 13:52:00 Test Item Value Reference Range Interpretation Comments Platelet (test code = Platelet) 226 133-450 N [facility] HospitalIcyxjoxRWEUAOLESD0728-64-63 13:52:00 Test Item Value Reference Range Interpretation Comments MCHC (test code = MCHC) 33.7 32.0-36.0 N [facility] HospitalMfupbkbXMKNJZZLNR4437-82-32 13:52:00 Test Item Value Reference Range Interpretation Comments MCH (test code = MCH) 28.5 pg 27.0-31.0 N [facility] HospitalEdarucsQTPMCIAZGL1286-10-73 13:52:00 Test Item Value Reference Range Interpretation Comments RDW (test code = RDW) 15.1 11.5-14.5 H [facility] HospitalNfdegwuCZTPXDIUJO1288-77-70 13:52:00 Test Item Value Reference Range Interpretation Comments MCV (test code = MCV) 84.6 81.0-99.0 N [facility] HospitalJaxzcvhOPZJEEWIWS9153-20-88 13:52:00 Test Item Value Reference Range Interpretation Comments Hct (test code = Hct) 36.4 36.0-48.0 N [facility] HospitalGncqgtjZWVQWPYRLW6657-55-14 13:52:00 Test Item Value Reference Range Interpretation Comments Hgb (test code = Hgb) 12.3 12.0-16.0 N [facility] HospitalYheraffRPXCLIKKTK9393-58-07 13:52:00 Test Item Value Reference Range Interpretation Comments RBC (test code = RBC) 4.30 4.20-5.40 N [facility] HospitalKxcjksiWQBFVVXLQC9455-12-00 13:52:00 Test Item Value Reference Range Interpretation Comments WBC (test code = WBC) 11.7 3.7-10.4 H [facility] HospitalOthtxovVCTUAWEVYD0039-52-60 13:52:00 Test Item Value Reference Range Interpretation Comments Monocytes (test code = Monocytes) 2.9 2.0-12.0 N [facility] HospitalEmjrbbgPXELLVXUXJ2942-88-57 13:52:00 Test Item Value Reference Range Interpretation Comments Eosinophils (test code = 0.2 See_Comment N [A utomated message] The Eosinophils) system which ge nerated this result tra nsmitted reference range : <=4.0. The reference r leo was not used to int erpret this result as normal/abnormal . [facility] HospitalEhriuovDKNMFUSMHP2018-00-18 13:52:00 Test Item Value Reference Range Interpretation Comments Basophils (test code = 0.0 See_Comment N [Aut omated message] The Basophils) system which ge nerated this result tra nsmitted reference range : <=1.0. The reference r leo was not used to int erpret this result as normal/abnormal . [facility] HospitalCloprtcMBWJWWJCGE2168-81-48 13:52:00 Test Item Value Reference Range Interpretation Comments Eosinophils # (test code 0.0 See_Comment N [A utomated message] The = Eosinophils #) system [facility] generated this result tra nsmitted reference range : <=0.5. The reference r leo was not used to int erpret this result as normal/abnormal . [facility] HospitalAemangbMUKGKPRISB2770-33-45 13:52:00 Test Item Value Reference Range Interpretation Comments Monocytes # (test code 0.3 See_Comment N [Aut omated message] The = Monocytes #) system which generated this result tra nsmitted reference range : <=0.8. The reference r leo was not used to int erpret this result as normal/abnormal . [facility] HospitalBlqrxuuPPMBUADBCJ1619-22-41 13:52:00 Test Item Value Reference Range Interpretation Comments Segs (test code = Segs) 92.0 45.0-75.0 H [facility] HospitalFzcjzciRMBGIQNZRO1625-03-36 13:52:00 Test Item Value Reference Range Interpretation Comments Lymphocytes (test code = Lymphocytes) 4.9 20.0-40.0 L [facility] HospitalCenhxoqTUOGUSKWEU6115-40-78 13:52:00 Test Item Value Reference Range Interpretation Comments Spherocyte (test code = Rare A Spherocyte) *ABN*(09/18/2011 08:52:00) [facility] HospitalYtacfecHYZAAOBZTX4559-49-56 13:52:00 Test Item Value Reference Range Interpretation Comments Large Plt (test code = Slight *ABN*(09/18/2011 A Large Plt) 08:52:00) [facility] HospitalClkbgxwNDXIEPMTEK3675-50-28 13:52:00 Test Item Value Reference Range Interpretation Comments Microcyte (test code = 1+ *ABN*(09/18/2011 A Microcyte) 08:52:00) [facility] Hospital[facility]prmezhJTEISGIITZ3254-15-62 13:52:00 Test Item Value Reference Range Interpretation Comments Schistocyte (test code = Schistocyte) Rare [facility] HospitalYhfezdiMRNRQKJIIC1377-13-86 13:52:00 Test Item Value Reference Range Interpretation Comments Macrocyte (test code = 1+ *ABN*(09/18/2011 A Macrocyte) 08:52:00) [facility] HospitalQnqeqmyTXKNHERIIN9189-69-24 13:52:00 Test Item Value Reference Range Interpretation Comments Lymphocytes # (test code = Lymphocytes 0.6 1.0-5.5 L #) [facility] HospitalTwxtshoWZZCATAPXR0953-99-42 13:52:00 Test Item Value Reference Range Interpretation Comments Segs-Bands # (test code = Segs-Bands #) 10.8 1.5-8.1 H [facility] HospitalAfrujduDBHUYJENCW8864-94-41 13:52:00 Test Item Value Reference Range Interpretation Comments Basophils # (test code 0.0 See_Comment N [Aut omated message] The = Basophils #) system which generated this result tra nsmitted reference range : <=0.2. The reference r leo was not used to int erpret this result as normal/abnormal . [facility] HospitalLlldkuzLWLSJDXCJV3686-63-22 13:52:00 Test Item Value Reference Range Interpretation Comments Anisocyte (test code = 1+ *ABN*(09/18/2011 A Anisocyte) 08:52:00) [facility]IitceaqHEMSNEAHKO4229-13-99 13:52:00 Test Item Value Reference Range Interpretation Comments CDC-HIV 1/2 Ab (test Negative *NA*(09/18/2011 code = CDC-HIV 1/2 08:52:00) Ab) [facility] AllianceEndtdkrCUZAJWZJS2075-50-69 13:52:00 Test Item Value Reference Range Interpretation Comments pO2 Roberth (test code = pO2 Roberth) 24 20-49 N [facility] AllianceTrgmhlhZAMCCCGKF2543-10-96 13:52:00 Test Item Value Reference Range Interpretation Comments HCO3 Roberth (test code = HCO3 Roberth) 32.0 22.0-26.0 H [facility] AllianceWsdbotvXUHLATBEZ5290-94-09 13:52:00 Test Item Value Reference Range Interpretation Comments pCO2 Roberth (test code = pCO2 Roberth) 44 38-52 N [facility] AllianceJtinbybYGKGEKWCQ8505-77-01 13:52:00 Test Item Value Reference Range Interpretation Comments BE Roberth (test code = 7 See_Comment H [Automa rohit message] The BE Roberth) system which ge nerated this result transmit rohit reference range : <=2. The reference range was not used to interpr et this result as reji l/abnormal. [facility] AllianceDazfvxfSTXYRJWMO0409-69-91 13:52:00 Test Item Value Reference Range Interpretation Comments O2 Sat Roberth (test code = O2 Sat Roberth) 48.0 40.0-70.0 N [facility] AllianceDpqrfdzOFUYWGDRF7113-60-29 13:52:00 Test Item Value Reference Range Interpretation Comments Temp Roberth (test code = Temp Roberth) 37.0 [facility] AlliancePkonqfyOBIIOLHNL9260-13-96 13:52:00 Test Item Value Reference Range Interpretation Comments pH Roberth (test code = pH Roberth) 7.47 7.28-7.42 H [facility] AllianceXoqlvazULRLZVTCJ5150-04-76 13:52:00 Test Item Value Reference Range Interpretation Comments Calcium Lvl (test code = Calcium Lvl) 10.1 8.5-10.5 N [facility] AllianceWgficcmAFYOOOYFA5628-57-93 13:52:00 Test Item Value Reference Range Interpretation Comments Chloride Lvl (test code = Chloride Lvl) 92 95-109 L [facility] AllianceOtwziapJZIVTYJKO5756-82-87 13:52:00 Test Item Value Reference Range Interpretation Comments CO2 (test code = CO2) 30 24-32 N [facility] AllianceXovodxqNYIVFGDYL8629-25-34 13:52:00 Test Item Value Reference Range Interpretation Comments Potassium Lvl (test code = Potassium 3.5 3.5-5.1 N Lvl) [facility] AllianceGbqidfaYHXKTVTAQ6393-56-39 13:52:00 Test Item Value Reference Range Interpretation Comments Sodium Lvl (test code = Sodium Lvl) 133 135-145 L [facility] AllianceAgzzrlnAGLTUWCDJ5651-79-04 13:52:00 Test Item Value Reference Range Interpretation Comments Creatinine Lvl (test code = Creatinine 1.3 0.5-1.4 N Lvl) [facility] AllianceNssslebIJGUVQFPA7645-92-94 13:52:00 Test Item Value Reference Range Interpretation Comments Glucose Lvl (test code = Glucose Lvl) 383 70-99 H [facility] AllianceIskemssUZHQINBGW8125-86-89 13:52:00 Test Item Value Reference Range Interpretation Comments BUN (test code = BUN) 17 7-22 N [facility] AllianceQlowocpIZVZLZXAM1912-88-30 13:52:00 Test Item Value Reference Range Interpretation Comments AGAP (test code = AGAP) 14.5 10.0-20.0 N [facility] HospitalBzprwoyYGIJQOVZOF6807-14-37 13:52:00 Test Item Value Reference Range Interpretation Comments MPV (test code = MPV) 12.0 7.4-10.4 H [facility] HospitalVmtujxeLSGLMJQGDL5281-42-08 13:52:00 Test Item Value Reference Range Interpretation Comments Platelet (test code = Platelet) 226 133-450 N [facility] HospitalOaqwgujSMGRJJETRP1612-87-53 13:52:00 Test Item Value Reference Range Interpretation Comments MCHC (test code = MCHC) 33.7 32.0-36.0 N [facility] HospitalOqsuhfzEJCSZKRLQZ9643-71-11 13:52:00 Test Item Value Reference Range Interpretation Comments MCH (test code = MCH) 28.5 pg 27.0-31.0 N [facility] HospitalMgfbpmmGFPYEKPNJI6847-65-50 13:52:00 Test Item Value Reference Range Interpretation Comments RDW (test code = RDW) 15.1 11.5-14.5 H [facility] HospitalFcmuaqjZNVOIHYZWU4673-76-98 13:52:00 Test Item Value Reference Range Interpretation Comments MCV (test code = MCV) 84.6 81.0-99.0 N [facility] HospitalIbccenxEEIPIHETGD1213-46-76 13:52:00 Test Item Value Reference Range Interpretation Comments Hct (test code = Hct) 36.4 36.0-48.0 N [facility] HospitalBnqjmqxMQUARTIQPL6951-95-30 13:52:00 Test Item Value Reference Range Interpretation Comments Hgb (test code = Hgb) 12.3 12.0-16.0 N [facility] HospitalTldaqicPARHXHVWQS1499-31-09 13:52:00 Test Item Value Reference Range Interpretation Comments RBC (test code = RBC) 4.30 4.20-5.40 N [facility] HospitalSrpleevAOADMEFBQR9421-39-36 13:52:00 Test Item Value Reference Range Interpretation Comments WBC (test code = WBC) 11.7 3.7-10.4 H [facility] HospitalCavvlzwLAWCCUUCCO5381-50-89 13:52:00 Test Item Value Reference Range Interpretation Comments Monocytes (test code = Monocytes) 2.9 2.0-12.0 N [facility] HospitalZurfitnXUWWRAVXUR2110-65-85 13:52:00 Test Item Value Reference Range Interpretation Comments Eosinophils (test code = 0.2 See_Comment N [A utomated message] The Eosinophils) system which ge nerated this result tra nsmitted reference range : <=4.0. The reference r leo was not used to int erpret this result as normal/abnormal . [facility] HospitalByxyodwMRJQSWBLME4975-93-42 13:52:00 Test Item Value Reference Range Interpretation Comments Basophils (test code = 0.0 See_Comment N [Aut omated message] The Basophils) system which ge nerated this result tra nsmitted reference range : <=1.0. The reference r leo was not used to int erpret this result as normal/abnormal . [facility] HospitalBpkcrwpZCTKZEOXLL2515-02-04 13:52:00 Test Item Value Reference Range Interpretation Comments Eosinophils # (test code 0.0 See_Comment N [A utomated message] The = Eosinophils #) system [facility] h generated this result tra nsmitted reference range : <=0.5. The reference r leo was not used to int erpret this result as normal/abnormal . [facility] HospitalXtyntipQANCWQWXEL4486-13-67 13:52:00 Test Item Value Reference Range Interpretation Comments Monocytes # (test code 0.3 See_Comment N [Aut omated message] The = Monocytes #) system which generated this result tra nsmitted reference range : <=0.8. The reference r leo was not used to int erpret this result as normal/abnormal . [facility] HospitalRjvimddPFRPCMYRVX1157-20-18 13:52:00 Test Item Value Reference Range Interpretation Comments Segs (test code = Segs) 92.0 45.0-75.0 H [facility] HospitalItyvqhxXQWNITGZHV3230-92-51 13:52:00 Test Item Value Reference Range Interpretation Comments Lymphocytes (test code = Lymphocytes) 4.9 20.0-40.0 L [facility] HospitalUsnbmsfKMQXQICSAT1971-82-39 13:52:00 Test Item Value Reference Range Interpretation Comments Spherocyte (test code = Rare A Spherocyte) *ABN*(09/18/2011 08:52:00) [facility] HospitalElyucxiGZQFQAULNU0059-76-41 13:52:00 Test Item Value Reference Range Interpretation Comments Large Plt (test code = Slight *ABN*(09/18/2011 A Large Plt) 08:52:00) [facility] HospitalTabuwmqZHEJLFMFYJ6749-45-09 13:52:00 Test Item Value Reference Range Interpretation Comments Microcyte (test code = 1+ *ABN*(09/18/2011 A Microcyte) 08:52:00) [facility] HospitalWuaiperHMRRFQDWXX1370-94-11 13:52:00 Test Item Value Reference Range Interpretation Comments Schistocyte (test code = Schistocyte) Rare [facility] HospitalLyrlhxaCHRCYPOOXE1528-64-79 13:52:00 Test Item Value Reference Range Interpretation Comments Macrocyte (test code = 1+ *ABN*(09/18/2011 A Macrocyte) 08:52:00) [facility] HospitalZlfjddeHYZDAEWFWN3153-86-36 13:52:00 Test Item Value Reference Range Interpretation Comments Lymphocytes # (test code = Lymphocytes 0.6 1.0-5.5 L #) [facility] HospitalNmcbxcbEJQKKIZBHP0476-34-69 13:52:00 Test Item Value Reference Range Interpretation Comments Segs-Bands # (test code = Segs-Bands #) 10.8 1.5-8.1 H [facility] HospitalHdsyjhxFYSXBZDZYA4918-73-14 13:52:00 Test Item Value Reference Range Interpretation Comments Basophils # (test code 0.0 See_Comment N [Aut omated message] The = Basophils #) system which generated this result tra nsmitted reference range : <=0.2. The reference r leo was not used to int erpret this result as normal/abnormal . [facility]aleKqcrpvwRUELJHPCNP5932-32-38 13:52:00 Test Item Value Reference Range Interpretation Comments Anisocyte (test code = 1+ *ABN*(09/18/2011 A Anisocyte) 08:52:00) [facility]aleYvmfopqVKBXLQHJYR0360-19-29 13:52:00 Test Item Value Reference Range Interpretation Comments CDC-HIV 1/2 Ab (test Negative *NA*(09/18/2011 code = CDC-HIV 1/2 08:52:00) Ab) [facility]alePkkgsfoPGJIRIIDH7502-36-22 13:52:00 Test Item Value Reference Range Interpretation Comments pO2 Roberth (test code = pO2 Roberth) 24 20-49 N [facility] AllianceWwucuwyYMBDJHHZL2003-20-10 13:52:00 Test Item Value Reference Range Interpretation Comments HCO3 Roberth (test code = HCO3 Roberth) 32.0 22.0-26.0 H [facility] AllianceMxtvmshZIJUFBHRB2297-89-53 13:52:00 Test Item Value Reference Range Interpretation Comments pCO2 Roberth (test code = pCO2 Roberth) 44 38-52 N [facility] AllianceHghywvlWCLKHHCKN8243-58-89 13:52:00 Test Item Value Reference Range Interpretation Comments BE Roberth (test code = 7 See_Comment H [Automa rohit message] The BE Roberth) system which ge nerated this result transmit rohit reference range : <=2. The reference range was not used to interpr et this result as reji l/abnormal. [facility] AllianceOsgeohuWVOOYSBZV3780-35-96 13:52:00 Test Item Value Reference Range Interpretation Comments O2 Sat Roberth (test code = O2 Sat Roberth) 48.0 40.0-70.0 N [facility] AllianceJobiddkNAILSQRTQ9657-29-00 13:52:00 Test Item Value Reference Range Interpretation Comments Temp Roberth (test code = Temp Roberth) 37.0 [facility] AllianceZflyxfaLHDOWHLXP4679-39-71 13:52:00 Test Item Value Reference Range Interpretation Comments pH Roberth (test code = pH Roberth) 7.47 7.28-7.42 H [facility] AllianceAnqkglbIEMIOBZOX7473-26-89 13:52:00 Test Item Value Reference Range Interpretation Comments Calcium Lvl (test code = Calcium Lvl) 10.1 8.5-10.5 N [facility] AllianceViotftpNUTVVWVTZ4814-03-28 13:52:00 Test Item Value Reference Range Interpretation Comments Chloride Lvl (test code = Chloride Lvl) 92 95-109 L [facility] AlliancePzlnogdYJKVHDHAL8327-51-60 13:52:00 Test Item Value Reference Range Interpretation Comments CO2 (test code = CO2) 30 24-32 N [facility] AllianceVikhiifRDUDICXUY6977-96-07 13:52:00 Test Item Value Reference Range Interpretation Comments Potassium Lvl (test code = Potassium 3.5 3.5-5.1 N Lvl) [facility] AllianceCgbyphsTYIHHIPVA6407-33-46 13:52:00 Test Item Value Reference Range Interpretation Comments Sodium Lvl (test code = Sodium Lvl) 133 135-145 L [facility] AllianceZinagemVZUVIJXWG9838-00-22 13:52:00 Test Item Value Reference Range Interpretation Comments Creatinine Lvl (test code = Creatinine 1.3 0.5-1.4 N Lvl) [facility] AllianceOvlqhsoUGZIUSFUU5572-30-27 13:52:00 Test Item Value Reference Range Interpretation Comments Glucose Lvl (test code = Glucose Lvl) 383 70-99 H [facility] AllianceZwwlbfaUYXBDLKEW7223-77-65 13:52:00 Test Item Value Reference Range Interpretation Comments BUN (test code = BUN) 17 7-22 N [facility] AllianceLqbwsteYGSKWXWLV7697-10-09 13:52:00 Test Item Value Reference Range Interpretation Comments AGAP (test code = AGAP) 14.5 10.0-20.0 N [facility] HospitalCzwrszgYKJJTJYIGX5356-27-31 13:52:00 Test Item Value Reference Range Interpretation Comments MPV (test code = MPV) 12.0 7.4-10.4 H [facility] HospitalLxwqiekUZTSARVROV6256-35-12 13:52:00 Test Item Value Reference Range Interpretation Comments Platelet (test code = Platelet) 226 133-450 N [facility] HospitalQinafdwJARKEYCEGZ3617-22-82 13:52:00 Test Item Value Reference Range Interpretation Comments MCHC (test code = MCHC) 33.7 32.0-36.0 N [facility] HospitalQbnwzlfOAZFGWGUVY9586-89-30 13:52:00 Test Item Value Reference Range Interpretation Comments MCH (test code = MCH) 28.5 pg 27.0-31.0 N [facility] HospitalOsynrocUAVISNTKZK1467-16-18 13:52:00 Test Item Value Reference Range Interpretation Comments RDW (test code = RDW) 15.1 11.5-14.5 H [facility] HospitalRhontbtDFYADTYXQI7936-02-43 13:52:00 Test Item Value Reference Range Interpretation Comments MCV (test code = MCV) 84.6 81.0-99.0 N [facility] HospitalBdgoeqpTBIQWZMGVV9687-07-87 13:52:00 Test Item Value Reference Range Interpretation Comments Hct (test code = Hct) 36.4 36.0-48.0 N [facility] HospitalMtnbccuBBXIFOIWMJ7131-52-62 13:52:00 Test Item Value Reference Range Interpretation Comments Hgb (test code = Hgb) 12.3 12.0-16.0 N [place] [address]-03-30 13:52:00 Test Item Value Reference Range Interpretation Comments RBC (test code = RBC) 4.30 4.20-5.40 N [facility] HospitalGxpotmyNZFZLTWSNR3828-26-81 13:52:00 Test Item Value Reference Range Interpretation Comments WBC (test code = WBC) 11.7 3.7-10.4 H [facility] HospitalXrlmllaDENJYIYJPB8122-01-27 13:52:00 Test Item Value Reference Range Interpretation Comments Monocytes (test code = Monocytes) 2.9 2.0-12.0 N [facility] HospitalJypioyhALXIFCEWDE6578-61-00 13:52:00 Test Item Value Reference Range Interpretation Comments Eosinophils (test code = 0.2 See_Comment N [A utomated message] The Eosinophils) system which ge nerated this result tra nsmitted reference range : <=4.0. The reference r leo was not used to int erpret this result as normal/abnormal . [facility] HospitalXhukajzXWJPWLRZDX6726-65-01 13:52:00 Test Item Value Reference Range Interpretation Comments Basophils (test code = 0.0 See_Comment N [Aut omated message] The Basophils) system which ge nerated this result tra nsmitted reference range : <=1.0. The reference r leo was not used to int erpret this result as normal/abnormal . [facility] HospitalMtbqljkZKIZKTRUEV2965-25-89 13:52:00 Test Item Value Reference Range Interpretation Comments Eosinophils # (test code 0.0 See_Comment N [A utomated message] The = Eosinophils #) system wh h generated this result tra nsmitted reference range : <=0.5. The reference r leo was not used to int erpret this result as normal/abnormal . [facility] HospitalWxtyoenPPWFGLVSKI0984-02-67 13:52:00 Test Item Value Reference Range Interpretation Comments Monocytes # (test code 0.3 See_Comment N [Aut omated message] The = Monocytes #) system which generated this result tra nsmitted reference range : <=0.8. The reference r leo was not used to int erpret this result as normal/abnormal . [facility] HospitalNdvudxgARXNBQABIR9185-48-95 13:52:00 Test Item Value Reference Range Interpretation Comments Segs (test code = Segs) 92.0 45.0-75.0 H [facility] HospitalFccrehtUEHVZDHCMV7722-74-55 13:52:00 Test Item Value Reference Range Interpretation Comments Lymphocytes (test code = Lymphocytes) 4.9 20.0-40.0 L [facility] HospitalThectasEQQYOHLOPY6065-13-50 13:52:00 Test Item Value Reference Range Interpretation Comments Spherocyte (test code = Rare A Spherocyte) *ABN*(09/18/2011 08:52:00) [facility] HospitalKvjjvwaVKTCLFRUAX1998-26-41 13:52:00 Test Item Value Reference Range Interpretation Comments Large Plt (test code = Slight *ABN*(09/18/2011 A Large Plt) 08:52:00) [facility] HospitalPjebjhoGGHJSXNPAF1859-34-17 13:52:00 Test Item Value Reference Range Interpretation Comments Microcyte (test code = 1+ *ABN*(09/18/2011 A Microcyte) 08:52:00) [facility] HospitalOsohmmyYCNHAGDHCZ1840-59-08 13:52:00 Test Item Value Reference Range Interpretation Comments Schistocyte (test code = Schistocyte) Rare [facility] HospitalNbdjngtKJJOSGVZJF9140-00-40 13:52:00 Test Item Value Reference Range Interpretation Comments Macrocyte (test code = 1+ *ABN*(09/18/2011 A Macrocyte) 08:52:00) [facility] HospitalKwwgkofNALTEPSDXN5870-76-71 13:52:00 Test Item Value Reference Range Interpretation Comments Lymphocytes # (test code = Lymphocytes 0.6 1.0-5.5 L #) [facility] HospitalKagrcgzXOJFWKXGEE1918-74-36 13:52:00 Test Item Value Reference Range Interpretation Comments Segs-Bands # (test code = Segs-Bands #) 10.8 1.5-8.1 H [facility]FrszuiqIHHSPYAATD0609-88-66 13:52:00 Test Item Value Reference Range Interpretation Comments Basophils # (test code 0.0 See_Comment N [Aut omated message] The = Basophils #) system which generated this result tra nsmitted reference range : <=0.2. The reference r leo was not used to int erpret this result as normal/abnormal . [facility]alePudpwbpOGUSSUKJOY5140-46-38 13:52:00 Test Item Value Reference Range Interpretation Comments Anisocyte (test code = 1+ *ABN*(09/18/2011 A Anisocyte) 08:52:00) [facility]anoAgpjpakEZAMJVCNCF8426-72-33 13:52:00 Test Item Value Reference Range Interpretation Comments CDC-HIV 1/2 Ab (test Negative *NA*(09/18/2011 code = CDC-HIV 1/2 08:52:00) Ab) [facility] [id number] 17:34:00 Test Item Value Reference Range Interpretation Comments Gluc POC [facility] (test code = Gluc POC 215 70-99 H [facility]) [facility] GLUCOSE [id number] 17:34:00 Test Item Value Reference Range Interpretation Comments Comment1 (test code = Comment1) Notify RN/ [facility] GLU[facility]SE PIUNTDX5553-10-95 17:34:00 Test Item Value Reference Range Interpretation Comments Gluc POC [facility] (test code = Gluc POC 215 70-99 H [facility]) [facility] GLUCOSE NTVVFMZ9345-27-17 17:34:00 Test Item Value Reference Range Interpretation Comments Comment1 (test code = Comment1) Notify RN/ [facility] GLU[facility]SE HASTJHU5581-01-80 17:34:00 Test Item Value Reference Range Interpretation Comments Gluc POC [facility] (test code = Gluc POC 215 70-99 H [facility]) [facility] GLUCOSE CUAZMGY6563-62-43 17:34:00 Test Item Value Reference Range Interpretation Comments Comment1 (test code = Comment1) Notify TABATHA/ [facility] GLU[facility]SE QQSDBVF7923-71-13 17:34:00 Test Item Value Reference Range Interpretation Comments Gluc POC [facility] (test code = Gluc POC 215 70-99 H [facility]) [facility] GLUCOSE FDUWCEL5583-76-34 17:34:00 Test Item Value Reference Range Interpretation Comments Comment1 (test code = Comment1) Notify RN/ [facility]SE JDPWXPR2705-07-64 17:34:00 Test Item Value Reference Range Interpretation Comments Gluc POC [facility] (test code = Gluc POC 215 70-99 H [facility]) [facility] GLUCOSE [id number] 17:34:00 Test Item Value Reference Range Interpretation Comments Comment1 (test code = Comment1) Notify RN[facility] GLU[facility]SE FLFJLNG3434-33-80 11:43:00 Test Item Value Reference Range Interpretation Comments Comment1 (test code = Comment1) Notify RN/ [facility] GLUCOSE HIMKTYY4514-22-85 11:43:00 Test Item Value Reference Range Interpretation Comments Gluc POC [facility] (test code = Gluc POC 91 65-110 N [facility]) [facility] GLUCOSE [id number] 11:43:00 Test Item Value Reference Range Interpretation Comments Comment1 (test code = Comment1) Notify RN/ [facility] GLUCOSE [id number] 11:43:00 Test Item Value Reference Range Interpretation Comments Gluc POC [facility] (test code = Gluc POC 91 65-110 N [facility]) [facility] GLUCOSE [id number] 11:43:00 Test Item Value Reference Range Interpretation Comments Comment1 (test code = Comment1) Notify RN/ [facility] GLUCOSE [id number] 11:43:00 Test Item Value Reference Range Interpretation Comments Gluc POC [facility] (test code = Gluc POC 91 65-110 N [facility]) [facility] GLUCOSE KOMMSDH5481-12-02 11:43:00 Test Item Value Reference Range Interpretation Comments Comment1 (test code = Comment1) Notify RN/ [facility]UCOSE TGYPDSF6652-05-33 11:43:00 Test Item Value Reference Range Interpretation Comments Gluc POC [facility] (test code = Gluc POC 91 65-110 N [facility]) [facility] GLUCOSE [id number] 11:43:00 Test Item Value Reference Range Interpretation Comments Comment1 (test code = Comment1) Notify RN/ [facility]SE [id number] 11:43:00 Test Item Value Reference Range Interpretation Comments Gluc POC [facility] (test code = Gluc POC 91 65-110 N [facility]) [facility] GLUCOSE [id number] 02:45:00 Test Item Value Reference Range Interpretation Comments Comment1 (test code = Comment1) Notify TABATHA/ [facility]SE [id number] 02:45:00 Test Item Value Reference Range Interpretation Comments Gluc POC [facility] (test code = Gluc POC 148 65-110 H [facility]) [facility] GLUCOSE [id number] 02:45:00 Test Item Value Reference Range Interpretation Comments Comment1 (test code = Comment1) Notify TABATHA/ [facility]SE [id number] 02:45:00 Test Item Value Reference Range Interpretation Comments Gluc POC [facility] (test code = Gluc POC 148 65-110 H [facility]) [facility] GLUCOSE [id number] 02:45:00 Test Item Value Reference Range Interpretation Comments Comment1 (test code = Comment1) Notify TABATHA/ [facility] GLU[facility]SE [id number] 02:45:00 Test Item Value Reference Range Interpretation Comments Gluc POC [facility] (test code = Gluc POC 148 65-110 H [facility]) [facility] GLUCOSE [id number] 02:45:00 Test Item Value Reference Range Interpretation Comments Comment1 (test code = Comment1) Notify TABATHA/ [facility] GLUCOSE [id number] 02:45:00 Test Item Value Reference Range Interpretation Comments Gluc POC [facility] (test code = Gluc POC 148 65-110 H [facility]) [facility] GLUCOSE [id number] 02:45:00 Test Item Value Reference Range Interpretation Comments Comment1 (test code = Comment1) Notify TABATHA/ [facility] GLUCOSE [id number] 02:45:00 Test Item Value Reference Range Interpretation Comments Gluc POC [facility] (test code = Gluc POC 148 65-110 H [facility]) [facility] AllianceIvnsxqsVTWHZHSPV2078-20-78 08:47:00 Test Item Value Reference Range Interpretation Comments Sodium Lvl (test code = Sodium Lvl) 143 135-145 N [facility] AllianceJwjhubwDOMXMQHRZ3782-48-83 08:47:00 Test Item Value Reference Range Interpretation Comments Glucose Lvl (test code = Glucose Lvl) 105 [facility] AllianceYvcrbvsFVGAQMJDN0467-27-88 08:47:00 Test Item Value Reference Range Interpretation Comments CO2 (test code = CO2) 29 24-32 N [facility] AllianceXbygglbXFXJSCFMK4426-10-30 08:47:00 Test Item Value Reference Range Interpretation Comments Chloride Lvl (test code = Chloride Lvl) 103 95-109 N [facility] AllianceSteboygQBEYLBZDR0906-52-61 08:47:00 Test Item Value Reference Range Interpretation Comments BUN (test code = BUN) 10 7-22 N [facility] AllianceVfuusjoOJMNSAUXP8284-32-60 08:47:00 Test Item Value Reference Range Interpretation Comments Potassium Lvl (test code = Potassium 3.8 3.5-5.1 N Lvl) [facility] AllianceGovvmrrQSHRMDETA1453-32-69 08:47:00 Test Item Value Reference Range Interpretation Comments Creatinine Lvl (test code = Creatinine 0.6 0.5-1.4 N Lvl) [facility] AllianceEgzwlvwWNWUBJMCR8001-85-50 08:47:00 Test Item Value Reference Range Interpretation Comments Calcium Lvl (test code = Calcium Lvl) 8.5 8.5-10.5 N [facility] AllianceAbylnasYKDHMUYPF9019-84-25 08:47:00 Test Item Value Reference Range Interpretation Comments AGAP (test code = AGAP) 14.8 10.0-20.0 N [facility]UuzlwjxDZWZHHVNHZ6628-97-22 08:47:00 Test Item Value Reference Range Interpretation Comments MCH (test code = MCH) 28.9 pg 27.0-31.0 N [facility] HospitalBszoyofONQQKPOZPA6601-01-60 08:47:00 Test Item Value Reference Range Interpretation Comments MCV (test code = MCV) 82.1 81.0-99.0 N [facility] HospitalJsabjtyULQQKXPHAW2794-78-54 08:47:00 Test Item Value Reference Range Interpretation Comments Hct (test code = Hct) 25.9 36.0-48.0 L [facility] HospitalRhfeawnMNXDMKSPTO0423-36-90 08:47:00 Test Item Value Reference Range Interpretation Comments Platelet (test code = Platelet) 233 133-450 N [facility] HospitalAchrtowCBICQTJQGC0141-37-20 08:47:00 Test Item Value Reference Range Interpretation Comments RDW (test code = RDW) 14.5 11.5-14.5 N [facility] HospitalQuiowhfOKSRMUNCIC1628-81-91 08:47:00 Test Item Value Reference Range Interpretation Comments MCHC (test code = MCHC) 35.2 32.0-36.0 N [facility] HospitalSogensbOWDYSUNPOR6029-19-04 08:47:00 Test Item Value Reference Range Interpretation Comments Hgb (test code = Hgb) 9.1 12.0-16.0 L [facility] HospitalYlmmbnuZDVXBEZCUF1252-37-87 08:47:00 Test Item Value Reference Range Interpretation Comments RBC (test code = RBC) 3.15 4.20-5.40 L [facility] HospitalSwhmgfvYQQTZGUDUX2492-22-05 08:47:00 Test Item Value Reference Range Interpretation Comments MPV (test code = MPV) 9.0 7.4-10.4 N [facility] HospitalBioygxpFVNKVNVNYT0013-19-47 08:47:00 Test Item Value Reference Range Interpretation Comments WBC (test code = WBC) 6.3 3.7-10.4 N [facility] HospitalTnymvbeKCKDUMOHKN4099-80-92 08:47:00 Test Item Value Reference Range Interpretation Comments Eosinophils # (test code 0.0 See_Comment N [A utomated message] The = Eosinophils #) system whic h generated this result tra nsmitted reference range : <=0.5. The reference r leo was not used to int erpret this result as normal/abnormal . [facility] HospitalMrasfttGRLWHSUINY2350-51-08 08:47:00 Test Item Value Reference Range Interpretation Comments Basophils # (test code 0.0 See_Comment N [Aut omated message] The = Basophils #) system which generated this result tra nsmitted reference range : <=0.2. The reference r leo was not used to int erpret this result as normal/abnormal . [facility] HospitalVxjvcdzWQHSOBYRHO6152-35-98 08:47:00 Test Item Value Reference Range Interpretation Comments Segs-Bands # (test code = Segs-Bands #) 3.8 1.5-8.1 N [facility] HospitalFoowitwFJPMQWOVLF5096-87-84 08:47:00 Test Item Value Reference Range Interpretation Comments Lymphocytes # (test code = Lymphocytes 2.0 1.0-5.5 N #) [facility] HospitalZtqulwrELKYYQLQWS6360-01-27 08:47:00 Test Item Value Reference Range Interpretation Comments Basophils (test code = 0.5 See_Comment N [Aut omated message] The Basophils) system which ge nerated this result tra nsmitted reference range : <=1.0. The reference r leo was not used to int erpret this result as normal/abnormal . [facility] HospitalIgsyoggOKJDBZKSPZ7589-33-66 08:47:00 Test Item Value Reference Range Interpretation Comments Eosinophils (test code = 0.7 See_Comment N [A utomated message] The Eosinophils) system which ge nerated this result tra nsmitted reference range : <=4.0. The reference r leo was not used to int erpret this result as normal/abnormal . [facility] HospitalQevkhzgUHHCHSLNEJ3275-52-62 08:47:00 Test Item Value Reference Range Interpretation Comments Monocytes (test code = Monocytes) 6.2 2.0-12.0 N [facility] HospitalNojdkvbTNZQFAGERS6736-79-57 08:47:00 Test Item Value Reference Range Interpretation Comments Segs (test code = Segs) 61.1 45.0-75.0 N [facility] HospitalGfixbfkPVVRQPWNNX5460-55-03 08:47:00 Test Item Value Reference Range Interpretation Comments Lymphocytes (test code = Lymphocytes) 31.5 20.0-40.0 N [facility] HospitalEzshykrMOIQWSVCIF8909-90-28 08:47:00 Test Item Value Reference Range Interpretation Comments Monocytes # (test code 0.4 See_Comment N [Aut omated message] The = Monocytes #) system which generated this result tra nsmitted reference range : <=0.8. The reference r leo was not used to int erpret this result as normal/abnormal . [facility] AllianceCbbwuofIQKHINARI9450-71-29 08:47:00 Test Item Value Reference Range Interpretation Comments Sodium Lvl (test code = Sodium Lvl) 143 135-145 N [facility] AllianceYvpgoxeWTWEBMQDY4554-57-25 08:47:00 Test Item Value Reference Range Interpretation Comments Glucose Lvl (test code = Glucose Lvl) 105 [facility] AllianceXuggtzeCOLKSKSFW9537-20-87 08:47:00 Test Item Value Reference Range Interpretation Comments CO2 (test code = CO2) 29 24-32 N [facility] AllianceOykelphMTIHVGMQY8286-68-11 08:47:00 Test Item Value Reference Range Interpretation Comments Chloride Lvl (test code = Chloride Lvl) 103 95-109 N [facility] AllianceYjvidjdBBRFVIRSW2625-54-08 08:47:00 Test Item Value Reference Range Interpretation Comments BUN (test code = BUN) 10 7-22 N [facility] AllianceQagokakSOVCPYXXO2090-71-72 08:47:00 Test Item Value Reference Range Interpretation Comments Potassium Lvl (test code = Potassium 3.8 3.5-5.1 N Lvl) [facility] AllianceKwgmtfrKHWLGLQFE8640-92-52 08:47:00 Test Item Value Reference Range Interpretation Comments Creatinine Lvl (test code = Creatinine 0.6 0.5-1.4 N Lvl) [facility] AllianceVfawhyxHOQRLGNXO1015-78-67 08:47:00 Test Item Value Reference Range Interpretation Comments Calcium Lvl (test code = Calcium Lvl) 8.5 8.5-10.5 N [facility] AllianceHtpxmksDUOGTVKON2093-51-32 08:47:00 Test Item Value Reference Range Interpretation Comments AGAP (test code = AGAP) 14.8 10.0-20.0 N [facility] HospitalTgdgmvjQKYEKGNOMN1626-99-27 08:47:00 Test Item Value Reference Range Interpretation Comments MCH (test code = MCH) 28.9 pg 27.0-31.0 N [facility] HospitalYrbnssjSKSZUJHZML2581-88-14 08:47:00 Test Item Value Reference Range Interpretation Comments MCV (test code = MCV) 82.1 81.0-99.0 N [facility] HospitalUvyufhtCVGRRFNPGM9953-39-73 08:47:00 Test Item Value Reference Range Interpretation Comments Hct (test code = Hct) 25.9 36.0-48.0 L [facility] HospitalEtobhcoLRNIARNIFJ1661-41-78 08:47:00 Test Item Value Reference Range Interpretation Comments Platelet (test code = Platelet) 233 133-450 N [facility] HospitalHampjhbFGZMBXHOCY2095-54-00 08:47:00 Test Item Value Reference Range Interpretation Comments RDW (test code = RDW) 14.5 11.5-14.5 N [facility] HospitalSwpmrdjKIFPRTRPWB6635-42-39 08:47:00 Test Item Value Reference Range Interpretation Comments MCHC (test code = MCHC) 35.2 32.0-36.0 N [facility] HospitalKcrqvfpUXOCHUGNMU4793-96-72 08:47:00 Test Item Value Reference Range Interpretation Comments Hgb (test code = Hgb) 9.1 12.0-16.0 L [facility] HospitalHriyfyhEPZDIBZFAU7698-64-25 08:47:00 Test Item Value Reference Range Interpretation Comments RBC (test code = RBC) 3.15 4.20-5.40 L [facility] HospitalInyxqnoQJWTRXRGRZ8651-22-67 08:47:00 Test Item Value Reference Range Interpretation Comments MPV (test code = MPV) 9.0 7.4-10.4 N [facility] HospitalUfzgwnvONWDDLQQET7410-83-86 08:47:00 Test Item Value Reference Range Interpretation Comments WBC (test code = WBC) 6.3 3.7-10.4 N [facility] HospitalQxafoaoEHVBAEEANB9516-64-58 08:47:00 Test Item Value Reference Range Interpretation Comments Eosinophils # (test code 0.0 See_Comment N [A utomated message] The = Eosinophils #) system whic h generated this result tra nsmitted reference range : <=0.5. The reference r leo was not used to int erpret this result as normal/abnormal . [facility] HospitalVdnkkssAIMFWKSQNR3792-80-73 08:47:00 Test Item Value Reference Range Interpretation Comments Basophils # (test code 0.0 See_Comment N [Aut omated message] The = Basophils #) system which generated this result tra nsmitted reference range : <=0.2. The reference r leo was not used to int erpret this result as normal/abnormal . [facility] HospitalSoyrbviRTZCLFTYFC9852-47-56 08:47:00 Test Item Value Reference Range Interpretation Comments Segs-Bands # (test code = Segs-Bands #) 3.8 1.5-8.1 N [facility] HospitalVlmjkesOJOKODVANJ1322-02-07 08:47:00 Test Item Value Reference Range Interpretation Comments Lymphocytes # (test code = Lymphocytes 2.0 1.0-5.5 N #) [facility] HospitalOjgkrzpRLMBXUMJNY2018-08-54 08:47:00 Test Item Value Reference Range Interpretation Comments Basophils (test code = 0.5 See_Comment N [Aut omated message] The Basophils) system which ge nerated this result tra nsmitted reference range : <=1.0. The reference r leo was not used to int erpret this result as normal/abnormal . [facility] HospitalWiiearcQDSHWZAABX5042-81-40 08:47:00 Test Item Value Reference Range Interpretation Comments Eosinophils (test code = 0.7 See_Comment N [A utomated message] The Eosinophils) system which ge nerated this result tra nsmitted reference range : <=4.0. The reference r leo was not used to int erpret this result as normal/abnormal . [facility] HospitalWnzoeglJIRUAJZIDW0672-29-78 08:47:00 Test Item Value Reference Range Interpretation Comments Monocytes (test code = Monocytes) 6.2 2.0-12.0 N [facility] HospitalMkmpfbyWJTYXHTXAI1735-20-47 08:47:00 Test Item Value Reference Range Interpretation Comments Segs (test code = Segs) 61.1 45.0-75.0 N [facility] HospitalNrmsaqtYKHAGQCLUZ2872-16-35 08:47:00 Test Item Value Reference Range Interpretation Comments Lymphocytes (test code = Lymphocytes) 31.5 20.0-40.0 N [facility] HospitalDjwogyqXWAVBWFLET1205-91-98 08:47:00 Test Item Value Reference Range Interpretation Comments Monocytes # (test code 0.4 See_Comment N [Aut omated message] The = Monocytes #) system which generated this result tra nsmitted reference range : <=0.8. The reference r leo was not used to int erpret this result as normal/abnormal . [facility] AllianceGndikxeYPAOQQJGH7469-27-10 08:47:00 Test Item Value Reference Range Interpretation Comments Sodium Lvl (test code = Sodium Lvl) 143 135-145 N [facility] AllianceGriuazoUSQMVNTCV9484-75-21 08:47:00 Test Item Value Reference Range Interpretation Comments Glucose Lvl (test code = Glucose Lvl) 105 [facility] AllianceZmogqhmVUPZDQXSY3105-35-13 08:47:00 Test Item Value Reference Range Interpretation Comments CO2 (test code = CO2) 29 24-32 N [facility] AllianceJqsxqcaPBYWFXEPT9048-87-66 08:47:00 Test Item Value Reference Range Interpretation Comments Chloride Lvl (test code = Chloride Lvl) 103 95-109 N [facility] AllianceBugbwjwJTPVFAVNP3997-54-31 08:47:00 Test Item Value Reference Range Interpretation Comments BUN (test code = BUN) 10 7-22 N [facility] AllianceJtmsvbcMAXSBKZWT3934-95-79 08:47:00 Test Item Value Reference Range Interpretation Comments Potassium Lvl (test code = Potassium 3.8 3.5-5.1 N Lvl) [facility] AllianceGkgptpcGUCNFKEMP6884-46-42 08:47:00 Test Item Value Reference Range Interpretation Comments Creatinine Lvl (test code = Creatinine 0.6 0.5-1.4 N Lvl) [facility] AllianceEtgqditKFTFQHGLV0288-70-73 08:47:00 Test Item Value Reference Range Interpretation Comments Calcium Lvl (test code = Calcium Lvl) 8.5 8.5-10.5 N [facility] AllianceQqggnxdSRWRRLFZA6735-70-73 08:47:00 Test Item Value Reference Range Interpretation Comments AGAP (test code = AGAP) 14.8 10.0-20.0 N [facility] HospitalIkbcykkLOQEOUTYEU5511-11-22 08:47:00 Test Item Value Reference Range Interpretation Comments MCH (test code = MCH) 28.9 pg 27.0-31.0 N [facility] HospitalSgrfsatLAZOCXFVQZ3953-21-39 08:47:00 Test Item Value Reference Range Interpretation Comments MCV (test code = MCV) 82.1 81.0-99.0 N [facility] HospitalYahxwsnSNFNBAUUXK6856-07-51 08:47:00 Test Item Value Reference Range Interpretation Comments Hct (test code = Hct) 25.9 36.0-48.0 L [facility] HospitalJnzrjywKYNWQOHMFS6799-88-39 08:47:00 Test Item Value Reference Range Interpretation Comments Platelet (test code = Platelet) 233 133-450 N [facility] HospitalRlbsghsNLBISVBFAA6949-60-15 08:47:00 Test Item Value Reference Range Interpretation Comments RDW (test code = RDW) 14.5 11.5-14.5 N [facility] HospitalAcukwlzRRLLQNTZJK7716-66-01 08:47:00 Test Item Value Reference Range Interpretation Comments MCHC (test code = MCHC) 35.2 32.0-36.0 N [facility] HospitalEhlfhvdOZJKSRTMVJ7609-98-24 08:47:00 Test Item Value Reference Range Interpretation Comments Hgb (test code = Hgb) 9.1 12.0-16.0 L [facility] HospitalIeipwzcCURKAFRGQU6009-76-91 08:47:00 Test Item Value Reference Range Interpretation Comments RBC (test code = RBC) 3.15 4.20-5.40 L [facility] HospitalAtujuacDFZBDHHKSV1217-50-23 08:47:00 Test Item Value Reference Range Interpretation Comments MPV (test code = MPV) 9.0 7.4-10.4 N [facility] HospitalGitecmxQCTWFZNJQZ3295-96-32 08:47:00 Test Item Value Reference Range Interpretation Comments WBC (test code = WBC) 6.3 3.7-10.4 N [facility] HospitalEwttinnZZVAWPJYMC7102-11-48 08:47:00 Test Item Value Reference Range Interpretation Comments Eosinophils # (test code 0.0 See_Comment N [A utomated message] The = Eosinophils #) system whic h generated this result tra nsmitted reference range : <=0.5. The reference r leo was not used to int erpret this result as normal/abnormal . [facility] HospitalIrxdreqJWVGYYPVOF1110-29-33 08:47:00 Test Item Value Reference Range Interpretation Comments Basophils # (test code 0.0 See_Comment N [Aut omated message] The = Basophils #) system which generated this result tra nsmitted reference range : <=0.2. The reference r leo was not used to int erpret this result as normal/abnormal . [facility] HospitalHhltfhcEAABNYYQFL7444-30-23 08:47:00 Test Item Value Reference Range Interpretation Comments Segs-Bands # (test code = Segs-Bands #) 3.8 1.5-8.1 N [facility] HospitalPzaphcfMLHFUCCBWN4063-85-45 08:47:00 Test Item Value Reference Range Interpretation Comments Lymphocytes # (test code = Lymphocytes 2.0 1.0-5.5 N #) [facility] HospitalVwsgcgkPFLVRIHGZZ0934-93-35 08:47:00 Test Item Value Reference Range Interpretation Comments Basophils (test code = 0.5 See_Comment N [Aut omated message] The Basophils) system which ge nerated this result tra nsmitted reference range : <=1.0. The reference r leo was not used to int erpret this result as normal/abnormal . [facility] HospitalLvdhgegKTLMYOMRFQ2488-01-72 08:47:00 Test Item Value Reference Range Interpretation Comments Eosinophils (test code = 0.7 See_Comment N [A utomated message] The Eosinophils) system which ge nerated this result tra nsmitted reference range : <=4.0. The reference r leo was not used to int erpret this result as normal/abnormal . [facility] HospitalFyqoljrTCTNDJOHRH1168 08:47:00 Test Item Value Reference Range Interpretation Comments Monocytes (test code = Monocytes) 6.2 2.0-12.0 N [facility] HospitalDvnqweoJZCOFFGAET3205-92-45 08:47:00 Test Item Value Reference Range Interpretation Comments Segs (test code = Segs) 61.1 45.0-75.0 N [facility] HospitalYyaxjisYGDHHJIGAC1517-30-89 08:47:00 Test Item Value Reference Range Interpretation Comments Lymphocytes (test code = Lymphocytes) 31.5 20.0-40.0 N [facility] HospitalPzvactiQIKQDNFWNT3033-91-97 08:47:00 Test Item Value Reference Range Interpretation Comments Monocytes # (test code 0.4 See_Comment N [Aut omated message] The = Monocytes #) system which generated this result tra nsmitted reference range : <=0.8. The reference r leo was not used to int erpret this result as normal/abnormal . [facility] AllianceLtmigepIYRIHUWLR6866-75-02 08:47:00 Test Item Value Reference Range Interpretation Comments Sodium Lvl (test code = Sodium Lvl) 143 135-145 N [facility] AllianceDhfkkqrSJILLSYEQ5700-97-04 08:47:00 Test Item Value Reference Range Interpretation Comments Glucose Lvl (test code = Glucose Lvl) 105 [facility] AllianceHyfxfnbTHVMPEDCI8848-45-53 08:47:00 Test Item Value Reference Range Interpretation Comments CO2 (test code = CO2) 29 24-32 N [facility] AllianceNdeipmoRRRVIPOCC5895-07-89 08:47:00 Test Item Value Reference Range Interpretation Comments Chloride Lvl (test code = Chloride Lvl) 103 95-109 N [facility] AllianceIzidpuyLYHHRPLLN6834-61-44 08:47:00 Test Item Value Reference Range Interpretation Comments BUN (test code = BUN) 10 7-22 N [facility] AllianceAluxrgpMNHREQJWM1184-91-77 08:47:00 Test Item Value Reference Range Interpretation Comments Potassium Lvl (test code = Potassium 3.8 3.5-5.1 N Lvl) [facility] AllianceUzrbacmISRJPGUBE7080-25-69 08:47:00 Test Item Value Reference Range Interpretation Comments Creatinine Lvl (test code = Creatinine 0.6 0.5-1.4 N Lvl) [facility] AllianceLbbbtjwOAUSNKPLP1772-76-20 08:47:00 Test Item Value Reference Range Interpretation Comments Calcium Lvl (test code = Calcium Lvl) 8.5 8.5-10.5 N [facility] AllianceZusooofVZAHQRQBQ6355-56-54 08:47:00 Test Item Value Reference Range Interpretation Comments AGAP (test code = AGAP) 14.8 10.0-20.0 N [facility] HospitalOctctnjIIBVERUJDA5961-46-12 08:47:00 Test Item Value Reference Range Interpretation Comments MCH (test code = MCH) 28.9 pg 27.0-31.0 N [facility] HospitalCzlozfoWFTMKCGFZM1450-94-71 08:47:00 Test Item Value Reference Range Interpretation Comments MCV (test code = MCV) 82.1 81.0-99.0 N [facility] HospitalJobmlleXHOLNAJUEZ6337-54-02 08:47:00 Test Item Value Reference Range Interpretation Comments Hct (test code = Hct) 25.9 36.0-48.0 L [facility] HospitalEmjcorcCZHWEOZMQK4363-25-17 08:47:00 Test Item Value Reference Range Interpretation Comments Platelet (test code = Platelet) 233 133-450 N [facility] HospitalZiilgukFITLIWRMTO9987-07-26 08:47:00 Test Item Value Reference Range Interpretation Comments RDW (test code = RDW) 14.5 11.5-14.5 N [facility] HospitalGigtmiwOHGVMBENLO9489-91-59 08:47:00 Test Item Value Reference Range Interpretation Comments MCHC (test code = MCHC) 35.2 32.0-36.0 N [facility] HospitalWrlqweoJPLPIZGAQE5058-10-46 08:47:00 Test Item Value Reference Range Interpretation Comments Hgb (test code = Hgb) 9.1 12.0-16.0 L [facility] HospitalCrixxmpHOFJEIVDHC8120-97-02 08:47:00 Test Item Value Reference Range Interpretation Comments RBC (test code = RBC) 3.15 4.20-5.40 L [facility] HospitalRhompezBIEKLEVGDP2385-66-07 08:47:00 Test Item Value Reference Range Interpretation Comments MPV (test code = MPV) 9.0 7.4-10.4 N [facility] HospitalEnagnuxGWGJCDYBHV9698-39-11 08:47:00 Test Item Value Reference Range Interpretation Comments WBC (test code = WBC) 6.3 3.7-10.4 N [facility] HospitalKfebhdtIZFUYUJBZS5621-98-26 08:47:00 Test Item Value Reference Range Interpretation Comments Eosinophils # (test code 0.0 See_Comment N [A utomated message] The = Eosinophils #) system whic h generated this result tra nsmitted reference range : <=0.5. The reference r leo was not used to int erpret this result as normal/abnormal . [facility] HospitalBupzvtnBQNHOLZGDO6054-36-19 08:47:00 Test Item Value Reference Range Interpretation Comments Basophils # (test code 0.0 See_Comment N [Aut omated message] The = Basophils #) system which generated this result tra nsmitted reference range : <=0.2. The reference r leo was not used to int erpret this result as normal/abnormal . [facility] HospitalZztsivzNTOHAZJBKA3320-84-60 08:47:00 Test Item Value Reference Range Interpretation Comments Segs-Bands # (test code = Segs-Bands #) 3.8 1.5-8.1 N [facility] HospitalFtlcwiaVKJEDOGBUM9430-47-11 08:47:00 Test Item Value Reference Range Interpretation Comments Lymphocytes # (test code = Lymphocytes 2.0 1.0-5.5 N #) [facility] HospitalJwsoorfATVJHVXMRS6585-01-73 08:47:00 Test Item Value Reference Range Interpretation Comments Basophils (test code = 0.5 See_Comment N [Aut omated message] The Basophils) system which ge nerated this result tra nsmitted reference range : <=1.0. The reference r leo was not used to int erpret this result as normal/abnormal . [facility] HospitalKxrluuiXIRSPGWVOU4282-85-52 08:47:00 Test Item Value Reference Range Interpretation Comments Eosinophils (test code = 0.7 See_Comment N [A utomated message] The Eosinophils) system which ge nerated this result tra nsmitted reference range : <=4.0. The reference r leo was not used to int erpret this result as normal/abnormal . [facility] HospitalMrywzxbQLJUCWUGUJ5114-47-33 08:47:00 Test Item Value Reference Range Interpretation Comments Monocytes (test code = Monocytes) 6.2 2.0-12.0 N [facility] HospitalCnalyorRQVPXXVXRK5273-43-88 08:47:00 Test Item Value Reference Range Interpretation Comments Segs (test code = Segs) 61.1 45.0-75.0 N [facility] HospitalDyrzxwkMNQJQTOHIS0916-14-44 08:47:00 Test Item Value Reference Range Interpretation Comments Lymphocytes (test code = Lymphocytes) 31.5 20.0-40.0 N [facility] HospitalJudjeejZSYIVGJMTN9408-16-36 08:47:00 Test Item Value Reference Range Interpretation Comments Monocytes # (test code 0.4 See_Comment N [Aut omated message] The = Monocytes #) system which generated this result tra nsmitted reference range : <=0.8. The reference r leo was not used to int erpret this result as normal/abnormal . [facility] AllianceFclpbpeVRARPATGX9496-13-79 08:47:00 Test Item Value Reference Range Interpretation Comments Sodium Lvl (test code = Sodium Lvl) 143 135-145 N [facility] AllianceHgfpzjjCMVOOTEKR9920-82-46 08:47:00 Test Item Value Reference Range Interpretation Comments Glucose Lvl (test code = Glucose Lvl) 105 [facility] AllianceVtcqfocTDHWFXXWP0365-31-33 08:47:00 Test Item Value Reference Range Interpretation Comments CO2 (test code = CO2) 29 24-32 N [facility] AllianceMgmbsayVDETFAOSD9095-27-62 08:47:00 Test Item Value Reference Range Interpretation Comments Chloride Lvl (test code = Chloride Lvl) 103 95-109 N [facility] AllianceUylpoieFNAHRIDND9561-20-29 08:47:00 Test Item Value Reference Range Interpretation Comments BUN (test code = BUN) 10 7-22 N [facility] AllianceQdaysnvVCIOJTTLG2582-33-37 08:47:00 Test Item Value Reference Range Interpretation Comments Potassium Lvl (test code = Potassium 3.8 3.5-5.1 N Lvl) [facility] AllianceSaxpuytVEXZOALVZ4864-32-26 08:47:00 Test Item Value Reference Range Interpretation Comments Creatinine Lvl (test code = Creatinine 0.6 0.5-1.4 N Lvl) [facility] AllianceKptgzzsYAPTVZTFO6804-99-40 08:47:00 Test Item Value Reference Range Interpretation Comments Calcium Lvl (test code = Calcium Lvl) 8.5 8.5-10.5 N [facility] AllianceUdocpyeSHOALHFUM0595-80-44 08:47:00 Test Item Value Reference Range Interpretation Comments AGAP (test code = AGAP) 14.8 10.0-20.0 N [facility]VdctcslQIIBTADPZQ2543-80-75 08:47:00 Test Item Value Reference Range Interpretation Comments MCH (test code = MCH) 28.9 pg 27.0-31.0 N [facility] HospitalBrxxrwqVBILMKWHTD7641-54-41 08:47:00 Test Item Value Reference Range Interpretation Comments MCV (test code = MCV) 82.1 81.0-99.0 N [facility] HospitalObxrasnWLEIKKDYHU5867-15-70 08:47:00 Test Item Value Reference Range Interpretation Comments Hct (test code = Hct) 25.9 36.0-48.0 L [facility] HospitalEittntaKBAWAAQZEH6373-04-35 08:47:00 Test Item Value Reference Range Interpretation Comments Platelet (test code = Platelet) 233 133-450 N [facility] HospitalGbxbnpvRWMAUEKQWN0427-27-46 08:47:00 Test Item Value Reference Range Interpretation Comments RDW (test code = RDW) 14.5 11.5-14.5 N [facility] HospitalJixdauwWAQRQTXXMD3623-31-31 08:47:00 Test Item Value Reference Range Interpretation Comments MCHC (test code = MCHC) 35.2 32.0-36.0 N [facility] HospitalSworvzgEIPIMKPFKQ9980-51-61 08:47:00 Test Item Value Reference Range Interpretation Comments Hgb (test code = Hgb) 9.1 12.0-16.0 L [facility] HospitalVdjnykcYIFYCGPYMB1277-12-87 08:47:00 Test Item Value Reference Range Interpretation Comments RBC (test code = RBC) 3.15 4.20-5.40 L [facility] HospitalDajpumjPQJCIVSKJX9701-52-58 08:47:00 Test Item Value Reference Range Interpretation Comments MPV (test code = MPV) 9.0 7.4-10.4 N [facility] HospitalEbcelxpOYJRLGVKHG2069-54-38 08:47:00 Test Item Value Reference Range Interpretation Comments WBC (test code = WBC) 6.3 3.7-10.4 N [facility] HospitalUvgpbkuTDNZUQXHLI0437-39-96 08:47:00 Test Item Value Reference Range Interpretation Comments Eosinophils # (test code 0.0 See_Comment N [A utomated message] The = Eosinophils #) system whic h generated this result tra nsmitted reference range : <=0.5. The reference r leo was not used to int erpret this result as normal/abnormal . [facility] HospitalEefxfpuXQGSDPWHSV0170-28-48 08:47:00 Test Item Value Reference Range Interpretation Comments Basophils # (test code 0.0 See_Comment N [Aut omated message] The = Basophils #) system which generated this result tra nsmitted reference range : <=0.2. The reference r leo was not used to int erpret this result as normal/abnormal . [facility] HospitalJuaqrtjZSWLZCSEZZ8278-97-09 08:47:00 Test Item Value Reference Range Interpretation Comments Segs-Bands # (test code = Segs-Bands #) 3.8 1.5-8.1 N [facility] HospitalPwfkmbfSCAQBOBDRJ4268-97-31 08:47:00 Test Item Value Reference Range Interpretation Comments Lymphocytes # (test code = Lymphocytes 2.0 1.0-5.5 N #) [facility] HospitalCttdxsgUYPTBDQCHS2144-20-81 08:47:00 Test Item Value Reference Range Interpretation Comments Basophils (test code = 0.5 See_Comment N [Aut omated message] The Basophils) system which ge nerated this result tra nsmitted reference range : <=1.0. The reference r leo was not used to int erpret this result as normal/abnormal . [facility] HospitalWbjknvoNKQLUCRHXZ4939-64-47 08:47:00 Test Item Value Reference Range Interpretation Comments Eosinophils (test code = 0.7 See_Comment N [A utomated message] The Eosinophils) system which ge nerated this result tra nsmitted reference range : <=4.0. The reference r leo was not used to int erpret this result as normal/abnormal . [facility] HospitalOiedtxmPTRTCFBXYL4804-25-18 08:47:00 Test Item Value Reference Range Interpretation Comments Monocytes (test code = Monocytes) 6.2 2.0-12.0 N [facility] HospitalOnhobdwQWIYNZPVQN1357-61-84 08:47:00 Test Item Value Reference Range Interpretation Comments Segs (test code = Segs) 61.1 45.0-75.0 N [facility] HospitalCdondpyPOYJOCJKDV9956-85-00 08:47:00 Test Item Value Reference Range Interpretation Comments Lymphocytes (test code = Lymphocytes) 31.5 20.0-40.0 N [facility] HospitalEyeyzxfZYLCCCRVQY6972-03-66 08:47:00 Test Item Value Reference Range Interpretation Comments Monocytes # (test code 0.4 See_Comment N [Aut omated message] The = Monocytes #) system which generated this result tra nsmitted reference range : <=0.8. The reference r leo was not used to int erpret this result as normal/abnormal . [facility] AllianceRitxawyHFGDTDKHM8416-55-93 10:54:00 Test Item Value Reference Range Interpretation Comments CO2 (test code = CO2) 27 24-32 N [facility] AllianceIhmeyhqUXZTZCXMN9018-48-81 10:54:00 Test Item Value Reference Range Interpretation Comments Chloride Lvl (test code = Chloride Lvl) 104 95-109 N [facility] AllianceNlwnxhyDPIWQQBOJ3809-06-36 10:54:00 Test Item Value Reference Range Interpretation Comments Creatinine Lvl (test code = Creatinine 0.5 0.5-1.4 N Lvl) [facility] AllianceNqfzjqrIHMGLQOVK5749-77-89 10:54:00 Test Item Value Reference Range Interpretation Comments BUN (test code = BUN) 10 7-22 N [facility] AllianceCrejhezQISHZTKVE3143-74-34 10:54:00 Test Item Value Reference Range Interpretation Comments Potassium Lvl (test code = Potassium 4.1 3.5-5.1 N Lvl) [facility] AllianceBzozxwiDCHABKCDA2504-32-14 10:54:00 Test Item Value Reference Range Interpretation Comments Sodium Lvl (test code = Sodium Lvl) 141 135-145 N [facility] AllianceItrnkdeDNJCQYFIG0768-94-82 10:54:00 Test Item Value Reference Range Interpretation Comments Glucose Lvl (test code = Glucose Lvl) 83 [facility] AllianceKrpavasPLDTAUWIJ1069-89-58 10:54:00 Test Item Value Reference Range Interpretation Comments Calcium Lvl (test code = Calcium Lvl) 8.4 8.5-10.5 L [facility] AllianceTggjhtqTNRORSCZW1037-35-87 10:54:00 Test Item Value Reference Range Interpretation Comments AGAP (test code = AGAP) 14.1 10.0-20.0 N [facility] HospitalZndwpfdEMKSWEUGSU1659-01-07 10:54:00 Test Item Value Reference Range Interpretation Comments Hct (test code = Hct) 35.5 36.0-48.0 L [facility] HospitalFxwegmtYAXARQOJBM8190-62-64 10:54:00 Test Item Value Reference Range Interpretation Comments WBC (test code = WBC) 4.7 3.7-10.4 N [facility] HospitalQjsctxaXLKCIIYGCH3297-40-31 10:54:00 Test Item Value Reference Range Interpretation Comments MCV (test code = MCV) 92.6 81.0-99.0 N [facility] HospitalIvuqqbqDXMXSIRTTO4612-96-72 10:54:00 Test Item Value Reference Range Interpretation Comments MCH (test code = MCH) 31.4 pg 27.0-31.0 H [facility] HospitalZwizqfiXGEXAJQCML3709-11-00 10:54:00 Test Item Value Reference Range Interpretation Comments RBC (test code = RBC) 3.84 4.20-5.40 L [facility] HospitalHjndlyyUIOJXIVALX4242-59-07 10:54:00 Test Item Value Reference Range Interpretation Comments Hgb (test code = Hgb) 12.1 12.0-16.0 N [facility] HospitalFwggvdeETYUJCDMMS9767-86-98 10:54:00 Test Item Value Reference Range Interpretation Comments Platelet (test code = Platelet) 287 133-450 N [facility] HospitalBeciufjJERDMEFLXX0670-46-99 10:54:00 Test Item Value Reference Range Interpretation Comments RDW (test code = RDW) 12.7 11.5-14.5 N [facility] HospitalNockgceUUKNIFUADN9015-47-23 10:54:00 Test Item Value Reference Range Interpretation Comments MCHC (test code = MCHC) 33.9 32.0-36.0 N [facility] HospitalNrgzbekXJQGROGWQE7474-96-28 10:54:00 Test Item Value Reference Range Interpretation Comments MPV (test code = MPV) 7.2 7.4-10.4 L [facility] HospitalSypklelKQILOEYFUL2623-21-45 10:54:00 Test Item Value Reference Range Interpretation Comments INR (test code = INR) 0.95 0.85-1.17 N [facility] HospitalKvdhkicSXKPIEORZF0550-74-38 10:54:00 Test Item Value Reference Range Interpretation Comments PT (test code = PT) 12.7 s 12.0-14.7 N [facility] HospitalYliicojKPZMAWWGFB7463-17-67 10:54:00 Test Item Value Reference Range Interpretation Comments PTT (test code = PTT) 28.5 s 22.9-35.8 N [facility] HospitalWtmpyqhGYLUCFNQSM2779-89-71 10:54:00 Test Item Value Reference Range Interpretation Comments Eosinophils # (test code 0.1 See_Comment N [A utomated message] The = Eosinophils #) system whic h generated this result tra nsmitted reference range : <=0.5. The reference r leo was not used to int erpret this result as normal/abnormal . [facility] HospitalMxvuuaqJVHSVQQVTB6171-57-97 10:54:00 Test Item Value Reference Range Interpretation Comments Basophils # (test code 0.0 See_Comment N [Aut omated message] The = Basophils #) system which generated this result tra nsmitted reference range : <=0.2. The reference r leo was not used to int erpret this result as normal/abnormal . [facility] HospitalAjunrbtBCMLSLCFXZ1926-41-57 10:54:00 Test Item Value Reference Range Interpretation Comments Basophils (test code = 0.4 See_Comment N [Aut omated message] The Basophils) system which ge nerated this result tra nsmitted reference range : <=1.0. The reference r leo was not used to int erpret this result as normal/abnormal . [facility] HospitalMiyiqboQJIAZLCNEI5810-97-36 10:54:00 Test Item Value Reference Range Interpretation Comments Segs-Bands # (test code = Segs-Bands #) 2.1 1.5-8.1 N [facility] HospitalGjqjfcqBOOPYGOVPM5035-41-61 10:54:00 Test Item Value Reference Range Interpretation Comments Monocytes (test code = Monocytes) 9.0 2.0-12.0 N [facility] HospitalAllnzxzVZWLZVVUJO6434-91-42 10:54:00 Test Item Value Reference Range Interpretation Comments Eosinophils (test code = 2.4 See_Comment N [A utomated message] The Eosinophils) system which ge nerated this result tra nsmitted reference range : <=4.0. The reference r leo was not used to int erpret this result as normal/abnormal . [facility] HospitalKrkkwwwLMNKNZOCLR1463-89-30 10:54:00 Test Item Value Reference Range Interpretation Comments Monocytes # (test code 0.4 See_Comment N [Aut omated message] The = Monocytes #) system which generated this result tra nsmitted reference range : <=0.8. The reference r leo was not used to int erpret this result as normal/abnormal . [facility] HospitalEsihuhdBDXZCDEODD3729-88-84 10:54:00 Test Item Value Reference Range Interpretation Comments Lymphocytes # (test code = Lymphocytes 2.0 1.0-5.5 N #) [facility] HospitalTwefxxsEJTZRRQXDB1295-90-48 10:54:00 Test Item Value Reference Range Interpretation Comments Lymphocytes (test code = Lymphocytes) 42.8 20.0-40.0 H [facility] HospitalRysxwraLRRWRPNUXQ5884-05-63 10:54:00 Test Item Value Reference Range Interpretation Comments Segs (test code = Segs) 45.4 45.0-75.0 N [facility] AllianceMyqamzbZLWZSEOMV5616-76-35 10:54:00 Test Item Value Reference Range Interpretation Comments CO2 (test code = CO2) 27 24-32 N [facility] AllianceSsqlkaaTGYHYQEMF1098-47-78 10:54:00 Test Item Value Reference Range Interpretation Comments Chloride Lvl (test code = Chloride Lvl) 104 95-109 N [facility] AllianceNljykfoJYUDJUSOD2500-52-76 10:54:00 Test Item Value Reference Range Interpretation Comments Creatinine Lvl (test code = Creatinine 0.5 0.5-1.4 N Lvl) [facility] AllianceLnnrxnaVGRRBCDPP2004-16-62 10:54:00 Test Item Value Reference Range Interpretation Comments BUN (test code = BUN) 10 7-22 N [facility] AllianceRnuxkjpRWWGKIZSQ6554-46-92 10:54:00 Test Item Value Reference Range Interpretation Comments Potassium Lvl (test code = Potassium 4.1 3.5-5.1 N Lvl) [facility] AllianceJnbvcynPTVYNCCUW5173-23-25 10:54:00 Test Item Value Reference Range Interpretation Comments Sodium Lvl (test code = Sodium Lvl) 141 135-145 N [facility] AlliancePslypmvJIARDSPFW4083-13-54 10:54:00 Test Item Value Reference Range Interpretation Comments Glucose Lvl (test code = Glucose Lvl) 83 [facility] AllianceKgwslbfGOQSFWKKC8136-80-95 10:54:00 Test Item Value Reference Range Interpretation Comments Calcium Lvl (test code = Calcium Lvl) 8.4 8.5-10.5 L [facility] AllianceVasghenZYAISPZHE6683-48-29 10:54:00 Test Item Value Reference Range Interpretation Comments AGAP (test code = AGAP) 14.1 10.0-20.0 N [facility] HospitalPeasfkjZXDEBYCSQM2041-92-86 10:54:00 Test Item Value Reference Range Interpretation Comments Hct (test code = Hct) 35.5 36.0-48.0 L [facility] HospitalTlvaovyVFGWGWEYJF6423-01-30 10:54:00 Test Item Value Reference Range Interpretation Comments WBC (test code = WBC) 4.7 3.7-10.4 N [facility] HospitalTeanhipVTHHQOFSCG5648-16-81 10:54:00 Test Item Value Reference Range Interpretation Comments MCV (test code = MCV) 92.6 81.0-99.0 N [facility] HospitalAicxzrwUCAXYJCFXL9598-69-39 10:54:00 Test Item Value Reference Range Interpretation Comments MCH (test code = MCH) 31.4 pg 27.0-31.0 H [facility] HospitalQguyefqRIOWPYCJRK8722-56-92 10:54:00 Test Item Value Reference Range Interpretation Comments RBC (test code = RBC) 3.84 4.20-5.40 L [facility] HospitalDhgqpxjROESLVJALT4210-56-03 10:54:00 Test Item Value Reference Range Interpretation Comments Hgb (test code = Hgb) 12.1 12.0-16.0 N [facility] HospitalMzagbadVJPYFSTUZA3786-40-97 10:54:00 Test Item Value Reference Range Interpretation Comments Platelet (test code = Platelet) 287 133-450 N [facility] HospitalEidnqilNWXZXBWQBU7543-59-77 10:54:00 Test Item Value Reference Range Interpretation Comments RDW (test code = RDW) 12.7 11.5-14.5 N [facility] HospitalOvkkhzuRNZGMJQBYS6497-24-21 10:54:00 Test Item Value Reference Range Interpretation Comments MCHC (test code = MCHC) 33.9 32.0-36.0 N [facility] HospitalHfipshgDBQPTSWOAH7533-60-84 10:54:00 Test Item Value Reference Range Interpretation Comments MPV (test code = MPV) 7.2 7.4-10.4 L [facility] HospitalEihkdiuTPIIZHFXMD2570-02-49 10:54:00 Test Item Value Reference Range Interpretation Comments INR (test code = INR) 0.95 0.85-1.17 N [facility] HospitalFujxxvuSEZEMLMIMT3681-33-26 10:54:00 Test Item Value Reference Range Interpretation Comments PT (test code = PT) 12.7 s 12.0-14.7 N [facility] HospitalCxtkcqkKUKTJYYPKT1522-80-55 10:54:00 Test Item Value Reference Range Interpretation Comments PTT (test code = PTT) 28.5 s 22.9-35.8 N [facility] HospitalDgiyffpZRPLLWBOUC0763-32-40 10:54:00 Test Item Value Reference Range Interpretation Comments Eosinophils # (test code 0.1 See_Comment N [A utomated message] The = Eosinophils #) system whic h generated this result tra nsmitted reference range : <=0.5. The reference r leo was not used to int erpret this result as normal/abnormal . [facility] HospitalWbfunptMTGLXZSOCC1996-82-78 10:54:00 Test Item Value Reference Range Interpretation Comments Basophils # (test code 0.0 See_Comment N [Aut omated message] The = Basophils #) system which generated this result tra nsmitted reference range : <=0.2. The reference r leo was not used to int erpret this result as normal/abnormal . [facility] HospitalBbhdjodAOYKASPDQG9475-48-63 10:54:00 Test Item Value Reference Range Interpretation Comments Basophils (test code = 0.4 See_Comment N [Aut omated message] The Basophils) system which ge nerated this result tra nsmitted reference range : <=1.0. The reference r leo was not used to int erpret this result as normal/abnormal . [facility] HospitalCtzezcxLJBEFTMWQZ6400-15-66 10:54:00 Test Item Value Reference Range Interpretation Comments Segs-Bands # (test code = Segs-Bands #) 2.1 1.5-8.1 N [facility] HospitalCqeikfsFNBAEKRMNZ1179-27-37 10:54:00 Test Item Value Reference Range Interpretation Comments Monocytes (test code = Monocytes) 9.0 2.0-12.0 N [facility] HospitalQglyeebNLCKZTWSHS3333-30-75 10:54:00 Test Item Value Reference Range Interpretation Comments Eosinophils (test code = 2.4 See_Comment N [A utomated message] The Eosinophils) system which ge nerated this result tra nsmitted reference range : <=4.0. The reference r leo was not used to int erpret this result as normal/abnormal . [facility] HospitalQiectuuVHRINDYPMC5435-48-88 10:54:00 Test Item Value Reference Range Interpretation Comments Monocytes # (test code 0.4 See_Comment N [Aut omated message] The = Monocytes #) system which generated this result tra nsmitted reference range : <=0.8. The reference r leo was not used to int erpret this result as normal/abnormal . [facility] HospitalCeppfgtOFENSZGOGJ0303-39-60 10:54:00 Test Item Value Reference Range Interpretation Comments Lymphocytes # (test code = Lymphocytes 2.0 1.0-5.5 N #) [facility] HospitalMhndjwvDLMUIGWOHI2174-34-03 10:54:00 Test Item Value Reference Range Interpretation Comments Lymphocytes (test code = Lymphocytes) 42.8 20.0-40.0 H [facility] HospitalHyvalorTBQVYSWSQV7850-95-61 10:54:00 Test Item Value Reference Range Interpretation Comments Segs (test code = Segs) 45.4 45.0-75.0 N [facility] AllianceLatbnpePHRLDXCCW9999-91-51 10:54:00 Test Item Value Reference Range Interpretation Comments CO2 (test code = CO2) 27 24-32 N [facility] AllianceEpvvrnkOIRWCFDPC9979-64-65 10:54:00 Test Item Value Reference Range Interpretation Comments Chloride Lvl (test code = Chloride Lvl) 104 95-109 N [facility] AllianceGioucvtTAWYQUUQL9050-06-28 10:54:00 Test Item Value Reference Range Interpretation Comments Creatinine Lvl (test code = Creatinine 0.5 0.5-1.4 N Lvl) [facility] AllianceJlazkjiOWFUEWMFD5675-91-58 10:54:00 Test Item Value Reference Range Interpretation Comments BUN (test code = BUN) 10 7-22 N [facility] AllianceMipcvexKTHAPOGRH7770-20-66 10:54:00 Test Item Value Reference Range Interpretation Comments Potassium Lvl (test code = Potassium 4.1 3.5-5.1 N Lvl) [facility] AllianceXzifbldXQVTUUBOW5108-81-40 10:54:00 Test Item Value Reference Range Interpretation Comments Sodium Lvl (test code = Sodium Lvl) 141 135-145 N [facility] AllianceSkcdwhyWIJNVHXUP7280-03-76 10:54:00 Test Item Value Reference Range Interpretation Comments Glucose Lvl (test code = Glucose Lvl) 83 [facility] AllianceNpstmqzRWWILNMNQ5472-74-99 10:54:00 Test Item Value Reference Range Interpretation Comments Calcium Lvl (test code = Calcium Lvl) 8.4 8.5-10.5 L [facility] AllianceTtiwezkGPJSBXVXY0861-82-76 10:54:00 Test Item Value Reference Range Interpretation Comments AGAP (test code = AGAP) 14.1 10.0-20.0 N [facility] HospitalHzfeajpRKZQVAQKYX4167-25-69 10:54:00 Test Item Value Reference Range Interpretation Comments Hct (test code = Hct) 35.5 36.0-48.0 L [facility] HospitalDdjsrzjEMFEDOMSSK2123-01-31 10:54:00 Test Item Value Reference Range Interpretation Comments WBC (test code = WBC) 4.7 3.7-10.4 N [facility] HospitalIhrifpgFSFUTYORID3420-57-62 10:54:00 Test Item Value Reference Range Interpretation Comments MCV (test code = MCV) 92.6 81.0-99.0 N [facility] HospitalRlpuhnmISWPKLUOLY9012-64-47 10:54:00 Test Item Value Reference Range Interpretation Comments MCH (test code = MCH) 31.4 pg 27.0-31.0 H [facility] HospitalUjcxgvgHWATNQNVPH8645-02-36 10:54:00 Test Item Value Reference Range Interpretation Comments RBC (test code = RBC) 3.84 4.20-5.40 L [facility] HospitalVfeorrsQVSQNXNZTN4240-26-02 10:54:00 Test Item Value Reference Range Interpretation Comments Hgb (test code = Hgb) 12.1 12.0-16.0 N [facility] HospitalQitcnauRDGURLKSOR1984-96-77 10:54:00 Test Item Value Reference Range Interpretation Comments Platelet (test code = Platelet) 287 133-450 N [facility] HospitalCxasscoXTWNDSMWTG1790-95-63 10:54:00 Test Item Value Reference Range Interpretation Comments RDW (test code = RDW) 12.7 11.5-14.5 N [facility] HospitalTzmjbtpYOCZUKUILM8704-94-28 10:54:00 Test Item Value Reference Range Interpretation Comments MCHC (test code = MCHC) 33.9 32.0-36.0 N [facility] HospitalAopprixWDVXDDSGJP3117-07-78 10:54:00 Test Item Value Reference Range Interpretation Comments MPV (test code = MPV) 7.2 7.4-10.4 L [facility] HospitalJgtwxfaJSCGAIXNWT6349-53-71 10:54:00 Test Item Value Reference Range Interpretation Comments INR (test code = INR) 0.95 0.85-1.17 N [facility] HospitalNzjcctvGKXOSVNJCK0768-87-85 10:54:00 Test Item Value Reference Range Interpretation Comments PT (test code = PT) 12.7 s 12.0-14.7 N [facility] HospitalZhxlykrLHECMIGDMB6490-08-76 10:54:00 Test Item Value Reference Range Interpretation Comments PTT (test code = PTT) 28.5 s 22.9-35.8 N [facility] HospitalVllrvyiWWXGYZFTLZ9813-92-34 10:54:00 Test Item Value Reference Range Interpretation Comments Eosinophils # (test code 0.1 See_Comment N [A utomated message] The = Eosinophils #) system [facility] h generated this result tra nsmitted reference range : <=0.5. The reference r leo was not used to int erpret this result as normal/abnormal . [facility] HospitalVxefrxhZDMLZWTWZE0099-79-41 10:54:00 Test Item Value Reference Range Interpretation Comments Basophils # (test code 0.0 See_Comment N [Aut omated message] The = Basophils #) system which generated this result tra nsmitted reference range : <=0.2. The reference r leo was not used to int erpret this result as normal/abnormal . [facility] HospitalUfkzuitJFBLYJFDPJ0761-12-42 10:54:00 Test Item Value Reference Range Interpretation Comments Basophils (test code = 0.4 See_Comment N [Aut omated message] The Basophils) system which ge nerated this result tra nsmitted reference range : <=1.0. The reference r leo was not used to int erpret this result as normal/abnormal . [facility] HospitalJzrvcjoRYDQCJPZET8800-05-63 10:54:00 Test Item Value Reference Range Interpretation Comments Segs-Bands # (test code = Segs-Bands #) 2.1 1.5-8.1 N [facility] HospitalTvhfbxmZKTCDPKXBV5414-87-70 10:54:00 Test Item Value Reference Range Interpretation Comments Monocytes (test code = Monocytes) 9.0 2.0-12.0 N [facility] HospitalEvvkwotGFBLGTERLI5615-81-42 10:54:00 Test Item Value Reference Range Interpretation Comments Eosinophils (test code = 2.4 See_Comment N [A utomated message] The Eosinophils) system which ge nerated this result tra nsmitted reference range : <=4.0. The reference r leo was not used to int erpret this result as normal/abnormal . [facility] HospitalQknrulhQGUSJWQGHC2280-72-74 10:54:00 Test Item Value Reference Range Interpretation Comments Monocytes # (test code 0.4 See_Comment N [Aut omated message] The = Monocytes #) system which generated this result tra nsmitted reference range : <=0.8. The reference r leo was not used to int erpret this result as normal/abnormal . [facility]YqckkotBIMRKYVWKH3901-09-42 10:54:00 Test Item Value Reference Range Interpretation Comments Lymphocytes # (test code = Lymphocytes 2.0 1.0-5.5 N #) [facility] HospitalByenzxaIJJUVQZLSE9904-60-68 10:54:00 Test Item Value Reference Range Interpretation Comments Lymphocytes (test code = Lymphocytes) 42.8 20.0-40.0 H [facility] HospitalCqprmtkUKSDYHHMCP1175-12-65 10:54:00 Test Item Value Reference Range Interpretation Comments Segs (test code = Segs) 45.4 45.0-75.0 N [facility] AllianceMaftvsbFDZKANFTU0456-31-28 10:54:00 Test Item Value Reference Range Interpretation Comments CO2 (test code = CO2) 27 24-32 N [facility] AllianceNkunhfwNDPFGDJGY3447-52-48 10:54:00 Test Item Value Reference Range Interpretation Comments Chloride Lvl (test code = Chloride Lvl) 104 95-109 N [facility] AllianceAwadbqfYJPUHHXYL2485-65-04 10:54:00 Test Item Value Reference Range Interpretation Comments Creatinine Lvl (test code = Creatinine 0.5 0.5-1.4 N Lvl) [facility] AllianceGnophfsMYRTFCGQH2665-49-33 10:54:00 Test Item Value Reference Range Interpretation Comments BUN (test code = BUN) 10 7-22 N [facility] AllianceYjptljbJRDDEPYES4030-35-86 10:54:00 Test Item Value Reference Range Interpretation Comments Potassium Lvl (test code = Potassium 4.1 3.5-5.1 N Lvl) [facility] AllianceAmpddseSXHKFLPGT0860-96-31 10:54:00 Test Item Value Reference Range Interpretation Comments Sodium Lvl (test code = Sodium Lvl) 141 135-145 N [facility] AllianceRcbzfpbFZUJXACMC8180-55-85 10:54:00 Test Item Value Reference Range Interpretation Comments Glucose Lvl (test code = Glucose Lvl) 83 [facility] AllianceOhkwtgjQCOOSGPHZ5080-93-34 10:54:00 Test Item Value Reference Range Interpretation Comments Calcium Lvl (test code = Calcium Lvl) 8.4 8.5-10.5 L [facility] AllianceSmqwrhlVWIJANXKC3809-30-38 10:54:00 Test Item Value Reference Range Interpretation Comments AGAP (test code = AGAP) 14.1 10.0-20.0 N [facility] HospitalTpubtswPXPSCROCLZ2738-64-55 10:54:00 Test Item Value Reference Range Interpretation Comments Hct (test code = Hct) 35.5 36.0-48.0 L [facility] HospitalEwvmpihDNWQBXHHES0742-21-32 10:54:00 Test Item Value Reference Range Interpretation Comments WBC (test code = WBC) 4.7 3.7-10.4 N [facility] HospitalLaouyijRMJHOYOGQZ3418-37-18 10:54:00 Test Item Value Reference Range Interpretation Comments MCV (test code = MCV) 92.6 81.0-99.0 N [facility] HospitalRotchxgHOWLAVDISM9135-39-48 10:54:00 Test Item Value Reference Range Interpretation Comments MCH (test code = MCH) 31.4 pg 27.0-31.0 H [facility] HospitalCcsiggdDLSGSLAGBU3319-39-64 10:54:00 Test Item Value Reference Range Interpretation Comments RBC (test code = RBC) 3.84 4.20-5.40 L [facility] HospitalOimvzymLJJDLHGCIX5946-05-38 10:54:00 Test Item Value Reference Range Interpretation Comments Hgb (test code = Hgb) 12.1 12.0-16.0 N [facility] HospitalMwhpnsaSPYEFQQIZW0325-17-88 10:54:00 Test Item Value Reference Range Interpretation Comments Platelet (test code = Platelet) 287 133-450 N [facility] HospitalIafieweGODOOXYQGS5872-09-68 10:54:00 Test Item Value Reference Range Interpretation Comments RDW (test code = RDW) 12.7 11.5-14.5 N [facility] HospitalQgrwnheTRLGVYTYUC0807-90-75 10:54:00 Test Item Value Reference Range Interpretation Comments MCHC (test code = MCHC) 33.9 32.0-36.0 N [facility] HospitalAsquyouPHCJHFGNDI6559-17-23 10:54:00 Test Item Value Reference Range Interpretation Comments MPV (test code = MPV) 7.2 7.4-10.4 [facility]2012-03-19 10:54:00 Test Item Value Reference Range Interpretation Comments INR (test code = INR) 0.95 0.85-1.17 N [facility] HospitalBtmsrshYLMENCBTCM1557-24-89 10:54:00 Test Item Value Reference Range Interpretation Comments PT (test code = PT) 12.7 s 12.0-14.7 N [facility] HospitalJogedvbOVTEAVPESL7829-72-42 10:54:00 Test Item Value Reference Range Interpretation Comments PTT (test code = PTT) 28.5 s 22.9-35.8 N [facility] HospitalQmhrkqiGPDCWBFSCI2446-17-30 10:54:00 Test Item Value Reference Range Interpretation Comments Eosinophils # (test code 0.1 See_Comment N [A utomated message] The = Eosinophils #) system wh h generated this result tra nsmitted reference range : <=0.5. The reference r leo was not used to int erpret this result as normal/abnormal . [facility] HospitalDmtckkfLRCEVKIWPC5193-71-73 10:54:00 Test Item Value Reference Range Interpretation Comments Basophils # (test code 0.0 See_Comment N [Aut omated message] The = Basophils #) system which generated this result tra nsmitted reference range : <=0.2. The reference r leo was not used to int erpret this result as normal/abnormal . [facility] HospitalSsplvztEQEDUQSNIH7463-12-23 10:54:00 Test Item Value Reference Range Interpretation Comments Basophils (test code = 0.4 See_Comment N [Aut omated message] The Basophils) system which ge nerated this result tra nsmitted reference range : <=1.0. The reference r leo was not used to int erpret this result as normal/abnormal . [facility] HospitalAuqikuiQOAFEQRPNG4156-15-67 10:54:00 Test Item Value Reference Range Interpretation Comments Segs-Bands # (test code = Segs-Bands #) 2.1 1.5-8.1 N [facility] HospitalDwwypgkSONNNCLDLG8463-89-80 10:54:00 Test Item Value Reference Range Interpretation Comments Monocytes (test code = Monocytes) 9.0 2.0-12.0 N [facility] HospitalYwwodazDTXHKQQZUA2394-45-14 10:54:00 Test Item Value Reference Range Interpretation Comments Eosinophils (test code = 2.4 See_Comment N [A utomated message] The Eosinophils) system which ge nerated this result tra nsmitted reference range : <=4.0. The reference r leo was not used to int erpret this result as normal/abnormal . [facility] HospitalRhlkmvbQSGBCOSHUX8044-18-26 10:54:00 Test Item Value Reference Range Interpretation Comments Monocytes # (test code 0.4 See_Comment N [Aut omated message] The = Monocytes #) system which generated this result tra nsmitted reference range : <=0.8. The reference r leo was not used to int erpret this result as normal/abnormal . [facility] HospitalCwzuwroFAPTTRWZUR3351-27-87 10:54:00 Test Item Value Reference Range Interpretation Comments Lymphocytes # (test code = Lymphocytes 2.0 1.0-5.5 N #) [facility] HospitalBdzwdbsAQJCYPMJJM0190-92-51 10:54:00 Test Item Value Reference Range Interpretation Comments Lymphocytes (test code = Lymphocytes) 42.8 20.0-40.0 H [facility] HospitalDjecqqrSMAKIHQSSY5391-74-18 10:54:00 Test Item Value Reference Range Interpretation Comments Segs (test code = Segs) 45.4 45.0-75.0 N [facility] AllianceOtjrxuvLQDRPOPED8359-66-90 10:54:00 Test Item Value Reference Range Interpretation Comments CO2 (test code = CO2) 27 24-32 N [facility] AllianceCvghwxhZXDFGMPWG7705-36-17 10:54:00 Test Item Value Reference Range Interpretation Comments Chloride Lvl (test code = Chloride Lvl) 104 95-109 N [facility] AlliancePabhoxgHNMKCBYXL3007-37-46 10:54:00 Test Item Value Reference Range Interpretation Comments Creatinine Lvl (test code = Creatinine 0.5 0.5-1.4 N Lvl) [facility] AllianceQgqczwtNDJORRCJV4333-30-39 10:54:00 Test Item Value Reference Range Interpretation Comments BUN (test code = BUN) 10 7-22 N [facility] AllianceUfbgnqmBFRPRDGGP6608-67-92 10:54:00 Test Item Value Reference Range Interpretation Comments Potassium Lvl (test code = Potassium 4.1 3.5-5.1 N Lvl) [facility] AllianceMmnvkeqIOLXVMEDO3889-66-67 10:54:00 Test Item Value Reference Range Interpretation Comments Sodium Lvl (test code = Sodium Lvl) 141 135-145 N [facility] AllianceMwzkobjNHTPIFOKC9199-90-92 10:54:00 Test Item Value Reference Range Interpretation Comments Glucose Lvl (test code = Glucose Lvl) 83 [facility] AllianceMjnfvxlAAYSCGYJR3979-71-96 10:54:00 Test Item Value Reference Range Interpretation Comments Calcium Lvl (test code = Calcium Lvl) 8.4 8.5-10.5 L [facility] AllianceLyvjdqrLQQRTXBZE5286-88-65 10:54:00 Test Item Value Reference Range Interpretation Comments AGAP (test code = AGAP) 14.1 10.0-20.0 N [facility] HospitalKzyhmrzKNVNJXBKOU6714-07-95 10:54:00 Test Item Value Reference Range Interpretation Comments Hct (test code = Hct) 35.5 36.0-48.0 L [facility] HospitalRwjadbyEENAXGYILR1826-87-20 10:54:00 Test Item Value Reference Range Interpretation Comments WBC (test code = WBC) 4.7 3.7-10.4 N [facility] HospitalHibrgttNEHMMEKTBF7050-64-44 10:54:00 Test Item Value Reference Range Interpretation Comments MCV (test code = MCV) 92.6 81.0-99.0 N [facility] HospitalYxwhtpoSZHPGZAWAV9829-92-33 10:54:00 Test Item Value Reference Range Interpretation Comments MCH (test code = MCH) 31.4 pg 27.0-31.0 H [facility] HospitalDqmcwdmPPOIYVTVIA0184-20-45 10:54:00 Test Item Value Reference Range Interpretation Comments RBC (test code = RBC) 3.84 4.20-5.40 L [facility] HospitalCyktcfiTZZQAVLFYH1244-80-04 10:54:00 Test Item Value Reference Range Interpretation Comments Hgb (test code = Hgb) 12.1 12.0-16.0 N [facility] HospitalPsaymkiTJGMXYBBXN0648-19-08 10:54:00 Test Item Value Reference Range Interpretation Comments Platelet (test code = Platelet) 287 133-450 N [facility] HospitalOpvvajrOQMAJMSQWW0407-84-45 10:54:00 Test Item Value Reference Range Interpretation Comments RDW (test code = RDW) 12.7 11.5-14.5 N [facility] HospitalExqutbrQZAWFKANNK2943-97-98 10:54:00 Test Item Value Reference Range Interpretation Comments MCHC (test code = MCHC) 33.9 32.0-36.0 N [facility] HospitalCaowfbeHTJZKYAIDQ2788-46-43 10:54:00 Test Item Value Reference Range Interpretation Comments MPV (test code = MPV) 7.2 7.4-10.4 L [facility] HospitalElgrvsmAQILAZPTAB9170-88-32 10:54:00 Test Item Value Reference Range Interpretation Comments INR (test code = INR) 0.95 0.85-1.17 N [facility] HospitalFrtbsufZFDOKIKLPX8054-79-95 10:54:00 Test Item Value Reference Range Interpretation Comments PT (test code = PT) 12.7 s 12.0-14.7 N [facility] HospitalQfrsmuqFFUKCOUYLK5782-39-02 10:54:00 Test Item Value Reference Range Interpretation Comments PTT (test code = PTT) 28.5 s 22.9-35.8 N [facility] HospitalHjdekvuBMLJBWRLIK1588-40-85 10:54:00 Test Item Value Reference Range Interpretation Comments Eosinophils # (test code 0.1 See_Comment N [A utomated message] The = Eosinophils #) system whic h generated this result tra nsmitted reference range : <=0.5. The reference r leo was not used to int erpret this result as normal/abnormal . [facility] HospitalFbjtcpvJJWQAPUSYX2255-19-41 10:54:00 Test Item Value Reference Range Interpretation Comments Basophils # (test code 0.0 See_Comment N [Aut omated message] The = Basophils #) system which generated this result tra nsmitted reference range : <=0.2. The reference r leo was not used to int erpret this result as normal/abnormal . [facility] HospitalXkmfdxnGKDVWSBPWQ6611-36-55 10:54:00 Test Item Value Reference Range Interpretation Comments Basophils (test code = 0.4 See_Comment N [Aut omated message] The Basophils) system which ge nerated this result tra nsmitted reference range : <=1.0. The reference r leo was not used to int erpret this result as normal/abnormal . [facility] HospitalSujawwpODTWRLBRLF3971-97-95 10:54:00 Test Item Value Reference Range Interpretation Comments Segs-Bands # (test code = Segs-Bands #) 2.1 1.5-8.1 N [facility] HospitalKhrsrxxNZWBJHRRHR2654-09-63 10:54:00 Test Item Value Reference Range Interpretation Comments Monocytes (test code = Monocytes) 9.0 2.0-12.0 N [facility] HospitalEexoermSYRIZKFBAZ1930-59-51 10:54:00 Test Item Value Reference Range Interpretation Comments Eosinophils (test code = 2.4 See_Comment N [A utomated message] The Eosinophils) system which ge nerated this result tra nsmitted reference range : <=4.0. The reference r leo was not used to int erpret this result as normal/abnormal . [facility] HospitalYgiabtyWVDQDVWZAG0437-52-90 10:54:00 Test Item Value Reference Range Interpretation Comments Monocytes # (test code 0.4 See_Comment N [Aut omated message] The = Monocytes #) system which generated this result tra nsmitted reference range : <=0.8. The reference r leo was not used to int erpret this result as normal/abnormal . [facility] HospitalOcmthwjXTVJJXYAGU8318-42-41 10:54:00 Test Item Value Reference Range Interpretation Comments Lymphocytes # (test code = Lymphocytes 2.0 1.0-5.5 N #) [facility] HospitalInxncshILKLTIZQTO6077-65-16 10:54:00 Test Item Value Reference Range Interpretation Comments Lymphocytes (test code = Lymphocytes) 42.8 20.0-40.0 H [facility] HospitalJduykkrKZUDNZVHMA5882-12-86 10:54:00 Test Item Value Reference Range Interpretation Comments Segs (test code = Segs) 45.4 45.0-75.0 N [facility] AllianceMhcnjzwVUATVKFLA2164-62-43 10:02:00 Test Item Value Reference Range Interpretation Comments Chloride Lvl (test code = Chloride Lvl) 105 95-109 N [facility] AllianceNhpkoshCTNMGBRGN5634-96-85 10:02:00 Test Item Value Reference Range Interpretation Comments Potassium Lvl (test code = Potassium 4.1 3.5-5.1 N Lvl) [facility] AllianceTgmtifcPDFYMMTVY1046-20-36 10:02:00 Test Item Value Reference Range Interpretation Comments Sodium Lvl (test code = Sodium Lvl) 143 135-145 N [facility] AllianceTpfkmusDCRFOWRXA4457-77-09 10:02:00 Test Item Value Reference Range Interpretation Comments CO2 (test code = CO2) 29 24-32 N [facility] AllianceQzgqeuuMLZSDXMSO8336-73-50 10:02:00 Test Item Value Reference Range Interpretation Comments Calcium Lvl (test code = Calcium Lvl) 8.7 8.5-10.5 N [facility] AllianceYfxjwsuETZAUTXVE4497-07-53 10:02:00 Test Item Value Reference Range Interpretation Comments BUN (test code = BUN) 6 7-22 L [facility] AllianceDqswxquOBGVACNLN8302-57-10 10:02:00 Test Item Value Reference Range Interpretation Comments Creatinine Lvl (test code = Creatinine 0.6 0.5-1.4 N Lvl) [facility] AllianceEpqjzbvUTFGCRYGD0113-40-36 10:02:00 Test Item Value Reference Range Interpretation Comments Glucose Lvl (test code = Glucose Lvl) 118 [facility] AllianceWgbfhciQMOZOHEKO3819-30-12 10:02:00 Test Item Value Reference Range Interpretation Comments AGAP (test code = AGAP) 13.1 10.0-20.0 N [facility] HospitalEtfjhdfRMFRDWLUCU0266-82-52 10:02:00 Test Item Value Reference Range Interpretation Comments Basophils # (test code 0.0 See_Comment N [Aut omated message] The = Basophils #) system which generated this result tra nsmitted reference range : <=0.2. The reference r leo was not used to int erpret this result as normal/abnormal . [facility] HospitalRgaenooCQWFNMBAZR0334-85-17 10:02:00 Test Item Value Reference Range Interpretation Comments Monocytes # (test code 0.3 See_Comment N [Aut omated message] The = Monocytes #) system which generated this result tra nsmitted reference range : <=0.8. The reference r leo was not used to int erpret this result as normal/abnormal . [facility] HospitalSomfiznAVZJAFYFSS6146-31-86 10:02:00 Test Item Value Reference Range Interpretation Comments Eosinophils # (test code 0.1 See_Comment N [A utomated message] The = Eosinophils #) system whic h generated this result tra nsmitted reference range : <=0.5. The reference r leo was not used to int erpret this result as normal/abnormal . [facility] HospitalBgyrlaoRFASPSYUGO0092-58-30 10:02:00 Test Item Value Reference Range Interpretation Comments Segs-Bands # (test code = Segs-Bands #) 2.8 1.5-8.1 N [facility] HospitalUgydzilBHYXHHHTCX1389-93-17 10:02:00 Test Item Value Reference Range Interpretation Comments Lymphocytes # (test code = Lymphocytes 1.7 1.0-5.5 N #) [facility] HospitalFeanxjdDVKPOLURIL3673-41-37 10:02:00 Test Item Value Reference Range Interpretation Comments Basophils (test code = 0.6 See_Comment N [Aut omated message] The Basophils) system which ge nerated this result tra nsmitted reference range : <=1.0. The reference r leo was not used to int erpret this result as normal/abnormal . [facility] HospitalHqssbjrQPKDPXKDYK1702-10-31 10:02:00 Test Item Value Reference Range Interpretation Comments Monocytes (test code = Monocytes) 6.9 2.0-12.0 N [facility] HospitalEiqzmhuSDGELSKPCU4601-95-40 10:02:00 Test Item Value Reference Range Interpretation Comments Eosinophils (test code = 2.0 See_Comment N [A utomated message] The Eosinophils) system which ge nerated this result tra nsmitted reference range : <=4.0. The reference r leo was not used to int erpret this result as normal/abnormal . [facility] HospitalYxlxbjtEJXDXAHSET5918-87-55 10:02:00 Test Item Value Reference Range Interpretation Comments Segs (test code = Segs) 55.8 45.0-75.0 N [facility] HospitalNxdoqwdRUZFZYSPKY3901-53-94 10:02:00 Test Item Value Reference Range Interpretation Comments Lymphocytes (test code = Lymphocytes) 34.7 20.0-40.0 N [facility] HospitalIgprlxlYCKMZKKHFJ1652-69-93 10:02:00 Test Item Value Reference Range Interpretation Comments PTT (test code = PTT) 32.2 s 22.9-35.8 N [facility] HospitalEvihvakVFWQLVBDHF8581-13-79 10:02:00 Test Item Value Reference Range Interpretation Comments PT (test code = PT) 13.3 s 12.0-14.7 N [facility] HospitalUowferdUWMNRBATVP2970-48-89 10:02:00 Test Item Value Reference Range Interpretation Comments INR (test code = INR) 1.01 0.85-1.17 N [facility] HospitalHujwubkJDKXKFYBBJ9994-79-22 10:02:00 Test Item Value Reference Range Interpretation Comments Hct (test code = Hct) 27.5 36.0-48.0 L [facility] HospitalLeihuoqIDKIEZSNOC9280-35-36 10:02:00 Test Item Value Reference Range Interpretation Comments RBC (test code = RBC) 3.34 4.20-5.40 L [facility] HospitalPahvoixXXRYNYCZMN0243-95-46 10:02:00 Test Item Value Reference Range Interpretation Comments Hgb (test code = Hgb) 9.7 12.0-16.0 L [facility] HospitalRrlwtpeSUEOKCTIZN8319-75-44 10:02:00 Test Item Value Reference Range Interpretation Comments WBC (test code = WBC) 5.0 3.7-10.4 N [facility] HospitalAdjeeumKJOMZNWXLK1146-06-28 10:02:00 Test Item Value Reference Range Interpretation Comments MPV (test code = MPV) 9.2 7.4-10.4 N [facility] HospitalJwfxgjkBURYXNZXYJ4793-83-41 10:02:00 Test Item Value Reference Range Interpretation Comments Platelet (test code = Platelet) 240 133-450 N [facility] HospitalMeucupnYFUTMDQTSW9449-95-09 10:02:00 Test Item Value Reference Range Interpretation Comments RDW (test code = RDW) 14.3 11.5-14.5 N [facility] HospitalRxvnwhoFALQGFIJQN4254-65-25 10:02:00 Test Item Value Reference Range Interpretation Comments MCHC (test code = MCHC) 35.2 32.0-36.0 N [facility] HospitalVfgapbsPXPBXUJJFB1849-97-26 10:02:00 Test Item Value Reference Range Interpretation Comments MCH (test code = MCH) 28.9 pg 27.0-31.0 N [facility] HospitalVkipdimQVZTDRQJWU5443-47-20 10:02:00 Test Item Value Reference Range Interpretation Comments MCV (test code = MCV) 82.1 81.0-99.0 N [facility] AllianceBbugnrdBSKHOVKUH7604-44-87 10:02:00 Test Item Value Reference Range Interpretation Comments Chloride Lvl (test code = Chloride Lvl) 105 95-109 N [facility] AllianceRxdufnjABKYYCPTB6438-49-31 10:02:00 Test Item Value Reference Range Interpretation Comments Potassium Lvl (test code = Potassium 4.1 3.5-5.1 N Lvl) [facility] AllianceHypiyymCKBFRDTCQ2795-99-38 10:02:00 Test Item Value Reference Range Interpretation Comments Sodium Lvl (test code = Sodium Lvl) 143 135-145 N [facility] AllianceEgttfjkBXLKUWGMR5163-35-87 10:02:00 Test Item Value Reference Range Interpretation Comments CO2 (test code = CO2) 29 24-32 N [facility] AllianceObajfmsZGNNHRQMD2631-77-69 10:02:00 Test Item Value Reference Range Interpretation Comments Calcium Lvl (test code = Calcium Lvl) 8.7 8.5-10.5 N [facility] AllianceZtoxyesTGVAPTDOE5122-92-63 10:02:00 Test Item Value Reference Range Interpretation Comments BUN (test code = BUN) 6 7-22 L [facility] AllianceYnadqitPHTCOYSBY8916-82-65 10:02:00 Test Item Value Reference Range Interpretation Comments Creatinine Lvl (test code = Creatinine 0.6 0.5-1.4 N Lvl) [facility] AllianceEiqmzbqCHLDOKWFD4385-09-06 10:02:00 Test Item Value Reference Range Interpretation Comments Glucose Lvl (test code = Glucose Lvl) 118 [facility] AllianceNwedzvhZWXILVFZZ8493-93-93 10:02:00 Test Item Value Reference Range Interpretation Comments AGAP (test code = AGAP) 13.1 10.0-20.0 N [facility] HospitalUprgqzcMNRAFPEBMK5839-53-23 10:02:00 Test Item Value Reference Range Interpretation Comments Basophils # (test code 0.0 See_Comment N [Aut omated message] The = Basophils #) system which generated this result tra nsmitted reference range : <=0.2. The reference r leo was not used to int erpret this result as normal/abnormal . [facility] HospitalBzvceguFIIQNGOLKR6340-02-71 10:02:00 Test Item Value Reference Range Interpretation Comments Monocytes # (test code 0.3 See_Comment N [Aut omated message] The = Monocytes #) system which generated this result tra nsmitted reference range : <=0.8. The reference r leo was not used to int erpret this result as normal/abnormal . [facility] HospitalIxvfeulUKIMBWBSJC6222-98-97 10:02:00 Test Item Value Reference Range Interpretation Comments Eosinophils # (test code 0.1 See_Comment N [A utomated message] The = Eosinophils #) system whic h generated this result tra nsmitted reference range : <=0.5. The reference r leo was not used to int erpret this result as normal/abnormal . [facility] HospitalFyrrnuoTOFRCNMMCL4331-22-81 10:02:00 Test Item Value Reference Range Interpretation Comments Segs-Bands # (test code = Segs-Bands #) 2.8 1.5-8.1 N [facility] HospitalXyfibymSCZSNGBRTV6379-72-13 10:02:00 Test Item Value Reference Range Interpretation Comments Lymphocytes # (test code = Lymphocytes 1.7 1.0-5.5 N #) [facility] HospitalFpxhqdvMGHBUSGSJD3434-81-18 10:02:00 Test Item Value Reference Range Interpretation Comments Basophils (test code = 0.6 See_Comment N [Aut omated message] The Basophils) system which ge nerated this result tra nsmitted reference range : <=1.0. The reference r leo was not used to int erpret this result as normal/abnormal . [facility] HospitalXworggwFSGOLCZKZG9101-44-96 10:02:00 Test Item Value Reference Range Interpretation Comments Monocytes (test code = Monocytes) 6.9 2.0-12.0 N [facility] HospitalIopqizkMRAHOHDGGY1000-50-93 10:02:00 Test Item Value Reference Range Interpretation Comments Eosinophils (test code = 2.0 See_Comment N [A utomated message] The Eosinophils) system which ge nerated this result tra nsmitted reference range : <=4.0. The reference r leo was not used to int erpret this result as normal/abnormal . [facility] HospitalUipdhizDXBFHMTBME2856-18-75 10:02:00 Test Item Value Reference Range Interpretation Comments Segs (test code = Segs) 55.8 45.0-75.0 N [facility] HospitalQaxvefaPMCGCZNZXY8912-77-57 10:02:00 Test Item Value Reference Range Interpretation Comments Lymphocytes (test code = Lymphocytes) 34.7 20.0-40.0 [facility]FvfhvtjKSHBYKTDLI4586-23-30 10:02:00 Test Item Value Reference Range Interpretation Comments PTT (test code = PTT) 32.2 s 22.9-35.8 N [facility] HospitalSealpnjITYXECSACB6495-44-93 10:02:00 Test Item Value Reference Range Interpretation Comments PT (test code = PT) 13.3 s 12.0-14.7 N [facility] HospitalAbmevnePBJJHTAHZV8959-23-02 10:02:00 Test Item Value Reference Range Interpretation Comments INR (test code = INR) 1.01 0.85-1.17 N [facility] HospitalWytoohiDVUDKOOTTG0343-16-34 10:02:00 Test Item Value Reference Range Interpretation Comments Hct (test code = Hct) 27.5 36.0-48.0 L [facility] HospitalKmdykqaRVWCGSYSVE5396-71-11 10:02:00 Test Item Value Reference Range Interpretation Comments RBC (test code = RBC) 3.34 4.20-5.40 L [facility] HospitalRrtzmgjRHZVHYMVWC5456-78-08 10:02:00 Test Item Value Reference Range Interpretation Comments Hgb (test code = Hgb) 9.7 12.0-16.0 L [facility] HospitalMvcsymiYUQSPOQQDF4692-03-27 10:02:00 Test Item Value Reference Range Interpretation Comments WBC (test code = WBC) 5.0 3.7-10.4 N [facility] HospitalYrsqjujILKZQUGRYQ4079-28-91 10:02:00 Test Item Value Reference Range Interpretation Comments MPV (test code = MPV) 9.2 7.4-10.4 N [facility] HospitalPedhwizGDVRBXMZUH8335-78-50 10:02:00 Test Item Value Reference Range Interpretation Comments Platelet (test code = Platelet) 240 133-450 N [facility] HospitalFnxtwtsKTSAKVLQME8845-16-49 10:02:00 Test Item Value Reference Range Interpretation Comments RDW (test code = RDW) 14.3 11.5-14.5 N [facility] HospitalSuzjtevHEOPSDXMJG9726-43-39 10:02:00 Test Item Value Reference Range Interpretation Comments MCHC (test code = MCHC) 35.2 32.0-36.0 N [facility] HospitalQzqdpvxWAVXBBMBPN0160-44-65 10:02:00 Test Item Value Reference Range Interpretation Comments MCH (test code = MCH) 28.9 pg 27.0-31.0 N [facility] HospitalTbzrzkcYOLAIGMSNC8354-98-48 10:02:00 Test Item Value Reference Range Interpretation Comments MCV (test code = MCV) 82.1 81.0-99.0 N [facility] AllianceXmuzhliYHVKYXPQD1888-54-22 10:02:00 Test Item Value Reference Range Interpretation Comments Chloride Lvl (test code = Chloride Lvl) 105 95-109 N [facility] AllianceFglfnlnLPFOQGGIE8073-76-35 10:02:00 Test Item Value Reference Range Interpretation Comments Potassium Lvl (test code = Potassium 4.1 3.5-5.1 N Lvl) [facility] AllianceVzwfbjhYWIYLIYXO5974-92-99 10:02:00 Test Item Value Reference Range Interpretation Comments Sodium Lvl (test code = Sodium Lvl) 143 135-145 N [facility] AllianceNtclzqdENCDGEGJH2228-22-41 10:02:00 Test Item Value Reference Range Interpretation Comments CO2 (test code = CO2) 29 24-32 N [facility] AllianceXpwvlsbZMOBWNYNC4472-02-83 10:02:00 Test Item Value Reference Range Interpretation Comments Calcium Lvl (test code = Calcium Lvl) 8.7 8.5-10.5 N [facility] AllianceQnojiqhRVCKRWWNT9140-83-66 10:02:00 Test Item Value Reference Range Interpretation Comments BUN (test code = BUN) 6 7-22 L [facility] AllianceEseipmoPICILGHFQ3838-32-54 10:02:00 Test Item Value Reference Range Interpretation Comments Creatinine Lvl (test code = Creatinine 0.6 0.5-1.4 N Lvl) [facility] AllianceVrwbczhTXRJPHHTH1062-52-06 10:02:00 Test Item Value Reference Range Interpretation Comments Glucose Lvl (test code = Glucose Lvl) 118 [facility] AllianceJlrbfqxQXODSRUIB7451-36-09 10:02:00 Test Item Value Reference Range Interpretation Comments AGAP (test code = AGAP) 13.1 10.0-20.0 N [facility] HospitalFcjcowuLSBLUCEXIL5362-04-44 10:02:00 Test Item Value Reference Range Interpretation Comments Basophils # (test code 0.0 See_Comment N [Aut omated message] The = Basophils #) system which generated this result tra nsmitted reference range : <=0.2. The reference r leo was not used to int erpret this result as normal/abnormal . [facility] HospitalDicuiopBQKFPFCVKQ5784-23-46 10:02:00 Test Item Value Reference Range Interpretation Comments Monocytes # (test code 0.3 See_Comment N [Aut omated message] The = Monocytes #) system which generated this result tra nsmitted reference range : <=0.8. The reference r leo was not used to int erpret this result as normal/abnormal . [facility] HospitalKjribiwSYVKUMUWPQ3544-85-52 10:02:00 Test Item Value Reference Range Interpretation Comments Eosinophils # (test code 0.1 See_Comment N [A utomated message] The = Eosinophils #) system whic h generated this result tra nsmitted reference range : <=0.5. The reference r leo was not used to int erpret this result as normal/abnormal . [facility] HospitalMqrzmbeRQBIDPNRWH4636-62-22 10:02:00 Test Item Value Reference Range Interpretation Comments Segs-Bands # (test code = Segs-Bands #) 2.8 1.5-8.1 N [facility] HospitalEuxjfatAREWYNBPQE8298-51-44 10:02:00 Test Item Value Reference Range Interpretation Comments Lymphocytes # (test code = Lymphocytes 1.7 1.0-5.5 N #) [facility] HospitalPczdqobSNDUUUOHON4850-43-00 10:02:00 Test Item Value Reference Range Interpretation Comments Basophils (test code = 0.6 See_Comment N [Aut omated message] The Basophils) system which ge nerated this result tra nsmitted reference range : <=1.0. The reference r loe was not used to int erpret this result as normal/abnormal . [facility] HospitalUtsyhdqJIMTTQHFDI7560-87-95 10:02:00 Test Item Value Reference Range Interpretation Comments Monocytes (test code = Monocytes) 6.9 2.0-12.0 N [facility] HospitalQbrqyttIWTGGASRTB6119-39-53 10:02:00 Test Item Value Reference Range Interpretation Comments Eosinophils (test code = 2.0 See_Comment N [A utomated message] The Eosinophils) system which ge nerated this result tra nsmitted reference range : <=4.0. The reference r leo was not used to int erpret this result as normal/abnormal . [facility] HospitalAoztjfnUDQSOWWOSM7037-03-72 10:02:00 Test Item Value Reference Range Interpretation Comments Segs (test code = Segs) 55.8 45.0-75.0 N [facility] HospitalPzzynneLKXYZLVDNK8384-13-25 10:02:00 Test Item Value Reference Range Interpretation Comments Lymphocytes (test code = Lymphocytes) 34.7 20.0-40.0 N [facility] HospitalAvcaqnkHRLDPBUCAJ6280-50-17 10:02:00 Test Item Value Reference Range Interpretation Comments PTT (test code = PTT) 32.2 s 22.9-35.8 N [facility] HospitalPgurifuKUOBUQGFPU7635-02-06 10:02:00 Test Item Value Reference Range Interpretation Comments PT (test code = PT) 13.3 s 12.0-14.7 N [facility] HospitalWccsuzlGLUINXUCYP8069-32-73 10:02:00 Test Item Value Reference Range Interpretation Comments INR (test code = INR) 1.01 0.85-1.17 N [facility] HospitalOnwbxfkNDHTDHEOJJ0917-49-84 10:02:00 Test Item Value Reference Range Interpretation Comments Hct (test code = Hct) 27.5 36.0-48.0 L [facility] HospitalEnsqtaiFSNAZWZZKP8527-73-18 10:02:00 Test Item Value Reference Range Interpretation Comments RBC (test code = RBC) 3.34 4.20-5.40 L [facility] HospitalLhyewwoGHSNWCGPIA9648-31-66 10:02:00 Test Item Value Reference Range Interpretation Comments Hgb (test code = Hgb) 9.7 12.0-16.0 L [facility] HospitalLyqzqzeFNACKRWIZP6797-28-90 10:02:00 Test Item Value Reference Range Interpretation Comments WBC (test code = WBC) 5.0 3.7-10.4 N [facility] HospitalXuiphdiWCYVEHJDFU5394-40-38 10:02:00 Test Item Value Reference Range Interpretation Comments MPV (test code = MPV) 9.2 7.4-10.4 N [facility] HospitalFirdztsHJTPBEQVPI0582-08-90 10:02:00 Test Item Value Reference Range Interpretation Comments Platelet (test code = Platelet) 240 133-450 N [facility] HospitalPulamcmYFGLJSGSSD7622-58-89 10:02:00 Test Item Value Reference Range Interpretation Comments RDW (test code = RDW) 14.3 11.5-14.5 N [facility] HospitalLmqhhobOELSTIBKIM6284-52-25 10:02:00 Test Item Value Reference Range Interpretation Comments MCHC (test code = MCHC) 35.2 32.0-36.0 N [facility] HospitalIeiiwjgLVENGVSERM7308-97-06 10:02:00 Test Item Value Reference Range Interpretation Comments MCH (test code = MCH) 28.9 pg 27.0-31.0 N [facility] HospitalMyzrtlxZVYXOFICWG6558-07-69 10:02:00 Test Item Value Reference Range Interpretation Comments MCV (test code = MCV) 82.1 81.0-99.0 N [facility] AllianceLmetbqsMAVFWGGEO5233-55-60 10:02:00 Test Item Value Reference Range Interpretation Comments Chloride Lvl (test code = Chloride Lvl) 105 95-109 N [facility] AllianceGryhbdxWXVSBIXZI6247-26-12 10:02:00 Test Item Value Reference Range Interpretation Comments Potassium Lvl (test code = Potassium 4.1 3.5-5.1 N Lvl) [facility] AllianceJbryinmRFKPYPJCQ8357-48-01 10:02:00 Test Item Value Reference Range Interpretation Comments Sodium Lvl (test code = Sodium Lvl) 143 135-145 N [facility] AllianceSvaxreeEJFXDCRLI7121-41-62 10:02:00 Test Item Value Reference Range Interpretation Comments CO2 (test code = CO2) 29 24-32 N [facility] AllianceInyntofYYKSMITHT3562-91-73 10:02:00 Test Item Value Reference Range Interpretation Comments Calcium Lvl (test code = Calcium Lvl) 8.7 8.5-10.5 N [facility] AllianceDfondxoYYDAHBOQF1017-76-46 10:02:00 Test Item Value Reference Range Interpretation Comments BUN (test code = BUN) 6 7-22 L [facility] AllianceGyjjfnwSRRCZWVQT9406-98-64 10:02:00 Test Item Value Reference Range Interpretation Comments Creatinine Lvl (test code = Creatinine 0.6 0.5-1.4 N Lvl) [facility] AllianceEqtuvkxRCOBZQXEK9986-11-08 10:02:00 Test Item Value Reference Range Interpretation Comments Glucose Lvl (test code = Glucose Lvl) 118 [facility] AllianceYekhsrtJYRUBYXIM2933-71-11 10:02:00 Test Item Value Reference Range Interpretation Comments AGAP (test code = AGAP) 13.1 10.0-20.0 N [facility] HospitalJtmjruyEMNQYGICDF5479-99-84 10:02:00 Test Item Value Reference Range Interpretation Comments Basophils # (test code 0.0 See_Comment N [Aut omated message] The = Basophils #) system which generated this result tra nsmitted reference range : <=0.2. The reference r leo was not used to int erpret this result as normal/abnormal . [facility] HospitalPlkpexmSFHKGEOZQX1568-68-33 10:02:00 Test Item Value Reference Range Interpretation Comments Monocytes # (test code 0.3 See_Comment N [Aut omated message] The = Monocytes #) system which generated this result tra nsmitted reference range : <=0.8. The reference r leo was not used to int erpret this result as normal/abnormal . [facility] HospitalMqpisatHIKCKFPEUK7836-56-86 10:02:00 Test Item Value Reference Range Interpretation Comments Eosinophils # (test code 0.1 See_Comment N [A utomated message] The = Eosinophils #) system whic h generated this result tra nsmitted reference range : <=0.5. The reference r leo was not used to int erpret this result as normal/abnormal . [facility] HospitalPxlhwjaPGFDXVWRHX0678-14-50 10:02:00 Test Item Value Reference Range Interpretation Comments Segs-Bands # (test code = Segs-Bands #) 2.8 1.5-8.1 N [facility] HospitalVannovyCFLMMSTUVU3562-78-68 10:02:00 Test Item Value Reference Range Interpretation Comments Lymphocytes # (test code = Lymphocytes 1.7 1.0-5.5 N #) [facility] HospitalOwvvyowCOPLNJUSZA9826-58-71 10:02:00 Test Item Value Reference Range Interpretation Comments Basophils (test code = 0.6 See_Comment N [Aut omated message] The Basophils) system which ge nerated this result tra nsmitted reference range : <=1.0. The reference r leo was not used to int erpret this result as normal/abnormal . [facility] HospitalWcbbmqmHCRIAUBAIV5153-44-93 10:02:00 Test Item Value Reference Range Interpretation Comments Monocytes (test code = Monocytes) 6.9 2.0-12.0 N [facility] HospitalSbkzzaeEPZMWITHJB8391-21-20 10:02:00 Test Item Value Reference Range Interpretation Comments Eosinophils (test code = 2.0 See_Comment N [A utomated message] The Eosinophils) system which ge nerated this result tra nsmitted reference range : <=4.0. The reference r leo was not used to int erpret this result as normal/abnormal . [facility] HospitalUgciypzGZRNPHUZCW1686-25-58 10:02:00 Test Item Value Reference Range Interpretation Comments Segs (test code = Segs) 55.8 45.0-75.0 N [facility] HospitalCgkwdntSNRQZGRERJ8923-42-24 10:02:00 Test Item Value Reference Range Interpretation Comments Lymphocytes (test code = Lymphocytes) 34.7 20.0-40.0 N [facility] HospitalWdhdwmlWFXQNJNRMA9532-17-81 10:02:00 Test Item Value Reference Range Interpretation Comments PTT (test code = PTT) 32.2 s 22.9-35.8 N [facility] HospitalRbstoupXDNQAENBFA1055-61-80 10:02:00 Test Item Value Reference Range Interpretation Comments PT (test code = PT) 13.3 s 12.0-14.7 N [facility] HospitalKplfhszEWAZUCZZCV8466-72-28 10:02:00 Test Item Value Reference Range Interpretation Comments INR (test code = INR) 1.01 0.85-1.17 N [facility] HospitalRnmtqvaEPHQSKZMAB1518-93-00 10:02:00 Test Item Value Reference Range Interpretation Comments Hct (test code = Hct) 27.5 36.0-48.0 L [facility] HospitalRhphlxjLXAWJBKOXD0501-95-32 10:02:00 Test Item Value Reference Range Interpretation Comments RBC (test code = RBC) 3.34 4.20-5.40 L [facility] HospitalBfyhdxvXCSNKIGBEO0725-16-64 10:02:00 Test Item Value Reference Range Interpretation Comments Hgb (test code = Hgb) 9.7 12.0-16.0 L [facility] HospitalBstubhhTDKVFRBCQU3148-45-06 10:02:00 Test Item Value Reference Range Interpretation Comments WBC (test code = WBC) 5.0 3.7-10.4 N [facility] HospitalSkpxaxkDFWXUNHLYD8352-47-36 10:02:00 Test Item Value Reference Range Interpretation Comments MPV (test code = MPV) 9.2 7.4-10.4 N [facility] HospitalDpihadlIOHHECEMEB8625-26-93 10:02:00 Test Item Value Reference Range Interpretation Comments Platelet (test code = Platelet) 240 133-450 N [facility] HospitalSqywmbtZHMGQZAOCN1354-57-54 10:02:00 Test Item Value Reference Range Interpretation Comments RDW (test code = RDW) 14.3 11.5-14.5 N [facility] HospitalMfgkamxJCJMCFKMKM7382-84-18 10:02:00 Test Item Value Reference Range Interpretation Comments MCHC (test code = MCHC) 35.2 32.0-36.0 N [facility] HospitalLpdjqppFAVUDYPIFV1095-79-06 10:02:00 Test Item Value Reference Range Interpretation Comments MCH (test code = MCH) 28.9 pg 27.0-31.0 N [facility] HospitalJclpkkhUPHEDKRFBE4035-90-59 10:02:00 Test Item Value Reference Range Interpretation Comments MCV (test code = MCV) 82.1 81.0-99.0 N [facility] AllianceFemesmyWIEZHZOJD8881-01-90 10:02:00 Test Item Value Reference Range Interpretation Comments Chloride Lvl (test code = Chloride Lvl) 105 95-109 N [facility] AllianceGclljkfOXDYEKTIF5761-49-69 10:02:00 Test Item Value Reference Range Interpretation Comments Potassium Lvl (test code = Potassium 4.1 3.5-5.1 N Lvl) [facility] AllianceArbtaipEAVTKANUH7798-69-85 10:02:00 Test Item Value Reference Range Interpretation Comments Sodium Lvl (test code = Sodium Lvl) 143 135-145 N [facility] AllianceMvqqhqoYMHIKITQB4020-55-19 10:02:00 Test Item Value Reference Range Interpretation Comments CO2 (test code = CO2) 29 24-32 N [facility] AllianceFvbwznmLDASGJKBL2272-86-74 10:02:00 Test Item Value Reference Range Interpretation Comments Calcium Lvl (test code = Calcium Lvl) 8.7 8.5-10.5 N [facility] AllianceYxvqlvnNAOUPUEBJ7731-45-32 10:02:00 Test Item Value Reference Range Interpretation Comments BUN (test code = BUN) 6 7-22 L [facility] AllianceUbkyiizSTYTNXBFE7197-70-74 10:02:00 Test Item Value Reference Range Interpretation Comments Creatinine Lvl (test code = Creatinine 0.6 0.5-1.4 N Lvl) [facility] AllianceLoualcgCVCIFSAWQ6818-01-45 10:02:00 Test Item Value Reference Range Interpretation Comments Glucose Lvl (test code = Glucose Lvl) 118 [facility] AllianceGcoxkvrKULHTKQWV4647-21-33 10:02:00 Test Item Value Reference Range Interpretation Comments AGAP (test code = AGAP) 13.1 10.0-20.0 N [facility] HospitalPbhyddpOWSIHRCRRU9971-01-83 10:02:00 Test Item Value Reference Range Interpretation Comments Basophils # (test code 0.0 See_Comment N [Aut omated message] The = Basophils #) system which generated this result tra nsmitted reference range : <=0.2. The reference r leo was not used to int erpret this result as normal/abnormal . [facility] HospitalBhzfwcwUECPLRNSKY9938-33-03 10:02:00 Test Item Value Reference Range Interpretation Comments Monocytes # (test code 0.3 See_Comment N [Aut omated message] The = Monocytes #) system which generated this result tra nsmitted reference range : <=0.8. The reference r leo was not used to int erpret this result as normal/abnormal . [facility] HospitalZtvkykcTPAYOQPJZY3014-99-59 10:02:00 Test Item Value Reference Range Interpretation Comments Eosinophils # (test code 0.1 See_Comment N [A utomated message] The = Eosinophils #) system whic h generated this result tra nsmitted reference range : <=0.5. The reference r leo was not used to int erpret this result as normal/abnormal . [facility] HospitalYlikwwcYVBUQZIYNJ9714-76-60 10:02:00 Test Item Value Reference Range Interpretation Comments Segs-Bands # (test code = Segs-Bands #) 2.8 1.5-8.1 N [facility] HospitalTgdxosrDNYYVERDQX0154-20-94 10:02:00 Test Item Value Reference Range Interpretation Comments Lymphocytes # (test code = Lymphocytes 1.7 1.0-5.5 N #) [facility] HospitalXqksuhlOAJJPGGUYP6237-08-39 10:02:00 Test Item Value Reference Range Interpretation Comments Basophils (test code = 0.6 See_Comment N [Aut omated message] The Basophils) system which ge nerated this result tra nsmitted reference range : <=1.0. The reference r leo was not used to int erpret this result as normal/abnormal . [facility] HospitalCwlcsxkYTNDPCMXKZ0251-16-88 10:02:00 Test Item Value Reference Range Interpretation Comments Monocytes (test code = Monocytes) 6.9 2.0-12.0 N [facility] HospitalHjpcacmWTVIUBSBIO4749-86-84 10:02:00 Test Item Value Reference Range Interpretation Comments Eosinophils (test code = 2.0 See_Comment N [A utomated message] The Eosinophils) system which ge nerated this result tra nsmitted reference range : <=4.0. The reference r leo was not used to int erpret this result as normal/abnormal . [facility] HospitalVuisbimRGKMORSCMN0290-53-09 10:02:00 Test Item Value Reference Range Interpretation Comments Segs (test code = Segs) 55.8 45.0-75.0 N [facility] HospitalQqygmiuPAOLUBSSNB6078-04-35 10:02:00 Test Item Value Reference Range Interpretation Comments Lymphocytes (test code = Lymphocytes) 34.7 20.0-40.0 N [facility] HospitalNzzddmxDGSTYVMDMH1967-48-02 10:02:00 Test Item Value Reference Range Interpretation Comments PTT (test code = PTT) 32.2 s 22.9-35.8 N [facility] HospitalUxrrspoFKNIUAPFWE2606-25-72 10:02:00 Test Item Value Reference Range Interpretation Comments PT (test code = PT) 13.3 s 12.0-14.7 N [facility] HospitalErjdftcTDTKHINDDZ7956-21-26 10:02:00 Test Item Value Reference Range Interpretation Comments INR (test code = INR) 1.01 0.85-1.17 N [facility] HospitalIbcnqlbKIIVIGLTOI5209-72-95 10:02:00 Test Item Value Reference Range Interpretation Comments Hct (test code = Hct) 27.5 36.0-48.0 L [facility] HospitalMluahzhLGJWLHVUYP7675-44-14 10:02:00 Test Item Value Reference Range Interpretation Comments RBC (test code = RBC) 3.34 4.20-5.40 L [facility] HospitalTbbpqmnTQZUPDFUWD4647-02-51 10:02:00 Test Item Value Reference Range Interpretation Comments Hgb (test code = Hgb) 9.7 12.0-16.0 L [facility] HospitalKrndmheGFHBWXUXTT4492-79-81 10:02:00 Test Item Value Reference Range Interpretation Comments WBC (test code = WBC) 5.0 3.7-10.4 N [facility] HospitalFhskthwMFVZZIVPGH9639-78-72 10:02:00 Test Item Value Reference Range Interpretation Comments MPV (test code = MPV) 9.2 7.4-10.4 N [facility] HospitalCdsnvbaYCUSWHUUAX1059-63-42 10:02:00 Test Item Value Reference Range Interpretation Comments Platelet (test code = Platelet) 240 133-450 N [facility] HospitalEfimamqCTNAHLMSLE0640-71-92 10:02:00 Test Item Value Reference Range Interpretation Comments RDW (test code = RDW) 14.3 11.5-14.5 N [facility] HospitalEyqnkypPZOUVXOPNW8576-09-22 10:02:00 Test Item Value Reference Range Interpretation Comments MCHC (test code = MCHC) 35.2 32.0-36.0 N [facility] HospitalAxxcifcAEQFJTTVPW0797-38-93 10:02:00 Test Item Value Reference Range Interpretation Comments MCH (test code = MCH) 28.9 pg 27.0-31.0 N [facility] HospitalPeaggfuMLFCPNPOLO8569-35-24 10:02:00 Test Item Value Reference Range Interpretation Comments MCV (test code = MCV) 82.1 81.0-99.0 N [facility] AllianceXubyncgGASNVUUSA1557-18-65 09:24:00 Test Item Value Reference Range Interpretation Comments Magnesium Lvl (test code = Magnesium 2.1 1.8-2.4 N Lvl) [facility] AllianceYzkzwpzXJYTXQSKK2491-56-92 09:24:00 Test Item Value Reference Range Interpretation Comments Magnesium Lvl (test code = Magnesium 2.1 1.8-2.4 N Lvl) [facility] AllianceKvtbtstYVTKHEXPQ6983-09-71 09:24:00 Test Item Value Reference Range Interpretation Comments Magnesium Lvl (test code = Magnesium 2.1 1.8-2.4 N Lvl) [facility] AllianceMlzlvmaSMPTAHRCH1357-59-23 09:24:00 Test Item Value Reference Range Interpretation Comments Magnesium Lvl (test code = Magnesium 2.1 1.8-2.4 N Lvl) [facility] AllianceQaqoknwORXUZRBPZ6013-44-87 09:24:00 Test Item Value Reference Range Interpretation Comments Magnesium Lvl (test code = Magnesium 2.1 1.8-2.4 N Lvl) [facility]FjldynuZypglczrqrgb4083-07-93 00:32:00 Test Item Value Reference Range Interpretation Comments Culture: Aspirate/Body Fluid/Tissue (test code = Culture: Aspirate/Body Fluid/Tissue) [facility]udaAjwsknaSgcdjzclaxeo3677-62-80 00:32:00 Test Item Value Reference Range Interpretation Comments Culture: Anaerobic (test code = Culture: Anaerobic) [facility]udaZyyhwezPwvxihulzwui9378-94-69 00:32:00 Test Item Value Reference Range Interpretation Comments Culture: Aspirate/Body Fluid/Tissue (test code = Culture: Aspirate/Body Fluid/Tissue) [facility]udaMjykmsvHnkrqlsionpd7095-48-19 00:32:00 Test Item Value Reference Range Interpretation Comments Culture: Anaerobic (test code = Culture: Anaerobic) [facility]udaXnaczhbKozqrmmcpbob8640-44-29 00:32:00 Test Item Value Reference Range Interpretation Comments Culture: Aspirate/Body Fluid/Tissue (test code = Culture: Aspirate/Body Fluid/Tissue) [facility]udaQolrhkbQgovhaapmgda8603-41-84 00:32:00 Test Item Value Reference Range Interpretation Comments Culture: Anaerobic (test code = Culture: Anaerobic) [facility]udaWbjezjaXrukcpkyvvil7274-82-37 00:32:00 Test Item Value Reference Range Interpretation Comments Culture: Aspirate/Body Fluid/Tissue (test code = Culture: Aspirate/Body Fluid/Tissue) [facility]udaWoewqazQwvkppqiywaa2561-57-59 00:32:00 Test Item Value Reference Range Interpretation Comments Culture: Anaerobic (test code = Culture: Anaerobic) [facility] BudaWmahlpyXowkeiolvkjl3602-03-07 00:32:00 Test Item Value Reference Range Interpretation Comments Culture: Aspirate/Body Fluid/Tissue (test code = Culture: Aspirate/Body Fluid/Tissue) [facility]udaQmslbnuZkftnocnkrct1379-53-98 00:32:00 Test Item Value Reference Range Interpretation Comments Culture: Anaerobic (test code = Culture: Anaerobic) [facility] AllianceUnsoqwcTQEFIILOB1910-67-26 17:10:00 Test Item Value Reference Range Interpretation Comments Temp Roberth (test code = Temp Roberth) 37.0 [facility] AlliancePiepmmhTJBABSTHJ8040-78-12 17:10:00 Test Item Value Reference Range Interpretation Comments O2 Sat Roberth (test code = O2 Sat Roberth) 27.0 40.0-70.0 L [facility] AllianceNhnnzeyBQQAZTGGK7873-65-59 17:10:00 Test Item Value Reference Range Interpretation Comments pCO2 Roberth (test code = pCO2 Roberth) 47 38-52 N [facility] AllianceHfilmcoIZFVTALCX8291-99-01 17:10:00 Test Item Value Reference Range Interpretation Comments pH Roberth (test code = pH Roberth) 7.37 7.28-7.42 N [facility] AllianceLrdkeboVUHKLFPWG6570-43-32 17:10:00 Test Item Value Reference Range Interpretation Comments BE Roberth (test code = 1 See_Comment N [Automa rohit message] The BE Roberth) system which ge nerated this result transmit rohit reference range : <=2. The reference range was not used to interpr et this result as reji l/abnormal. [facility] AllianceLiazbzfLRPOWSKYG9382-86-62 17:10:00 Test Item Value Reference Range Interpretation Comments HCO3 Roberth (test code = HCO3 Roberth) 27.2 22.0-26.0 H [facility] AllianceBqzfcqhYVLXFEHNK4691-19-44 17:10:00 Test Item Value Reference Range Interpretation Comments pO2 Roberth (test code = pO2 Roberth) 19 20-49 L [facility] AllianceTmvdlzwCHKMWEGLT3152-59-94 17:10:00 Test Item Value Reference Range Interpretation Comments Temp Roberth (test code = Temp Roberth) 37.0 [facility] AllianceQfxvdggSTXFYEGAA5911-09-27 17:10:00 Test Item Value Reference Range Interpretation Comments O2 Sat Roberth (test code = O2 Sat Roberth) 27.0 40.0-70.0 L [facility] AllianceGesffkzDMOFRSSPL9213-02-52 17:10:00 Test Item Value Reference Range Interpretation Comments pCO2 Roberth (test code = pCO2 Roberth) 47 38-52 N [facility] AllianceNapaicxWFGKUPLMF6734-10-10 17:10:00 Test Item Value Reference Range Interpretation Comments pH Roberth (test code = pH Roberth) 7.37 7.28-7.42 N [facility] AllianceVzgarftHBADLWHMH5866-18-57 17:10:00 Test Item Value Reference Range Interpretation Comments BE Roberth (test code = 1 See_Comment N [Automa rohit message] The BE Roberth) system which ge nerated this result transmit rohit reference range : <=2. The reference range was not used to interpr et this result as reji l/abnormal. [facility] AllianceQeebqlrEYOMJCPEU9443-45-69 17:10:00 Test Item Value Reference Range Interpretation Comments HCO3 Roberth (test code = HCO3 Roberth) 27.2 22.0-26.0 H [facility] AllianceGipgdsuORZDCLZAZ2921-71-77 17:10:00 Test Item Value Reference Range Interpretation Comments pO2 Roberth (test code = pO2 Roberth) 19 20-49 L [facility] AllianceAvikzlwBEWDEIHSU9162-22-21 17:10:00 Test Item Value Reference Range Interpretation Comments Temp Roberth (test code = Temp Roberth) 37.0 [facility] AllianceBcxljjyHNRWRCTXE9826-06-71 17:10:00 Test Item Value Reference Range Interpretation Comments O2 Sat Roberth (test code = O2 Sat Roberth) 27.0 40.0-70.0 L [facility] AllianceAntrdfqPOMUCJWWQ3937-78-09 17:10:00 Test Item Value Reference Range Interpretation Comments pCO2 Roberth (test code = pCO2 Roberth) 47 38-52 N [facility] AllianceMciyujtWIBCFMSSL7407-84-84 17:10:00 Test Item Value Reference Range Interpretation Comments pH Roberth (test code = pH Roberth) 7.37 7.28-7.42 N [facility] AllianceCxqsepiGLZPGYBUW2982-83-87 17:10:00 Test Item Value Reference Range Interpretation Comments BE Roberth (test code = 1 See_Comment N [Automa rohit message] The BE Roberth) system which ge nerated this result transmit rohit reference range : <=2. The reference range was not used to interpr et this result as reji l/abnormal. [facility] AllianceOwjrqyxSGPVMXHRL7406-80-21 17:10:00 Test Item Value Reference Range Interpretation Comments HCO3 Roberth (test code = HCO3 Roberth) 27.2 22.0-26.0 H [facility] AllianceJrohzmcIYEQXRLFI8070-73-53 17:10:00 Test Item Value Reference Range Interpretation Comments pO2 Roberth (test code = pO2 Roberth) 19 20-49 L [facility] AllianceAwyqxybUDNLSYJEW0104-91-06 17:10:00 Test Item Value Reference Range Interpretation Comments Temp Roberth (test code = Temp Roberth) 37.0 [facility] AllianceCeqeobyIFRKCCNSZ8561-82-83 17:10:00 Test Item Value Reference Range Interpretation Comments O2 Sat Roberth (test code = O2 Sat Roberth) 27.0 40.0-70.0 L [facility] AlliancePbwgeufEJJJQSXJK5869-15-24 17:10:00 Test Item Value Reference Range Interpretation Comments pCO2 Roberth (test code = pCO2 Roberth) 47 38-52 N [facility] AllianceZakvyzhKUEFWTWGW9821-68-84 17:10:00 Test Item Value Reference Range Interpretation Comments pH Roberth (test code = pH Roberth) 7.37 7.28-7.42 N [facility] AllianceZzdwiwsEKADTABUD2539-25-40 17:10:00 Test Item Value Reference Range Interpretation Comments BE Roberth (test code = 1 See_Comment N [Automa rohit message] The BE Roberth) system which ge nerated this result transmit rohit reference range : <=2. The reference range was not used to interpr et this result as reji l/abnormal. [facility] AllianceJqywkhdIRLQHMSTO0272-06-70 17:10:00 Test Item Value Reference Range Interpretation Comments HCO3 Roberth (test code = HCO3 Roberth) 27.2 22.0-26.0 H [facility] AllianceXrtrumhFBVOFKYRL3810-84-42 17:10:00 Test Item Value Reference Range Interpretation Comments pO2 Roberth (test code = pO2 Roberth) 19 20-49 L [facility] AllianceSbjnbojDQJLQLTHP3387-67-70 17:10:00 Test Item Value Reference Range Interpretation Comments Temp Roberth (test code = Temp Roberth) 37.0 [facility] AllianceNgvtpniAMBIICDHF5022-28-37 17:10:00 Test Item Value Reference Range Interpretation Comments O2 Sat Roberth (test code = O2 Sat Roberth) 27.0 40.0-70.0 L [facility] AllianceHhjnakzUBHKYXMDH8073-28-71 17:10:00 Test Item Value Reference Range Interpretation Comments pCO2 Roberth (test code = pCO2 Roberth) 47 38-52 N [facility] AllianceLqnobyePNBZPNNMC1539-15-22 17:10:00 Test Item Value Reference Range Interpretation Comments pH Roberth (test code = pH Roberth) 7.37 7.28-7.42 N [facility] AlliancePvvgbxnOHRPGGKQA1139-77-61 17:10:00 Test Item Value Reference Range Interpretation Comments BE Roberth (test code = 1 See_Comment N [Automa rohit message] The BE Roberth) system which ge nerated this result transmit rohit reference range : <=2. The reference range was not used to interpr et this result as reji l/abnormal. [facility] AllianceOaplofaPYSWBWBIR4590-62-81 17:10:00 Test Item Value Reference Range Interpretation Comments HCO3 Roberth (test code = HCO3 Roberth) 27.2 22.0-26.0 H [facility] AllianceGxqbssjAHOJJNCTR4203-59-34 17:10:00 Test Item Value Reference Range Interpretation Comments pO2 Roberth (test code = pO2 Roberth) 19 20-49 L [facility]udaLwrviskFovuhaqsidam9830-15-42 14:18:00 Test Item Value Reference Range Interpretation Comments Culture: Blood (test code = Culture: Blood) [facility] BudaYwdquqmXydfqleozciw3185-71-37 14:18:00 Test Item Value Reference Range Interpretation Comments Culture: Wound/Abscess w/Gram Stain (test code = Culture: Wound/Abscess w/Gram Stain) [facility] BudaWauovchIqzwyhajpydd9389-34-64 14:18:00 Test Item Value Reference Range Interpretation Comments Culture: Blood (test code = Culture: Blood) [facility] BudaZponoydYrqcykvjpbzl2477-23-21 14:18:00 Test Item Value Reference Range Interpretation Comments Culture: Wound/Abscess w/Gram Stain (test code = Culture: Wound/Abscess w/Gram Stain) [facility] BudaYgoctdqRcievmfcomxr1022-53-89 14:18:00 Test Item Value Reference Range Interpretation Comments Culture: Blood (test code = Culture: Blood) [facility] BudaAfkjkxrYklxiqrtulym9337-57-42 14:18:00 Test Item Value Reference Range Interpretation Comments Culture: Wound/Abscess w/Gram Stain (test code = Culture: Wound/Abscess w/Gram Stain) [facility] BudaKzucwcaXvuohfbyiuou4192-94-12 14:18:00 Test Item Value Reference Range Interpretation Comments Culture: Blood (test code = Culture: Blood) [facility] BudaVmynesnMfmlpddblkxv4928-94-91 14:18:00 Test Item Value Reference Range Interpretation Comments Culture: Wound/Abscess w/Gram Stain (test code = Culture: Wound/Abscess w/Gram Stain) [facility] BudaLsxwlmdJtazihdsqhjs8978-86-40 14:18:00 Test Item Value Reference Range Interpretation Comments Culture: Blood (test code = Culture: Blood) [facility] BudaCzkfiipChpxcqmtvbxz6579-32-82 14:18:00 Test Item Value Reference Range Interpretation Comments Culture: Wound/Abscess w/Gram Stain (test code = Culture: Wound/Abscess w/Gram Stain) [facility] AllianceQytpcfdXRFSQAPZC5874-16-09 13:09:00 Test Item Value Reference Range Interpretation Comments Lactic Acid Lvl (test code = Lactic 1.0 0.5-2.2 N Acid Lvl) [facility] AllianceCegpuxfNEMRFWCZK0722-57-64 13:09:00 Test Item Value Reference Range Interpretation Comments Lactic Acid Lvl (test code = Lactic 1.0 0.5-2.2 N Acid Lvl) [facility] AllianceJcojdkcFHPOXOXCS9813-02-03 13:09:00 Test Item Value Reference Range Interpretation Comments Lactic Acid Lvl (test code = Lactic 1.0 0.5-2.2 N Acid Lvl) [facility] AllianceNahngoaBSTKWYOBM6250-32-12 13:09:00 Test Item Value Reference Range Interpretation Comments Lactic Acid Lvl (test code = Lactic 1.0 0.5-2.2 N Acid Lvl) [facility] AllianceOqmegxmOTJGSLUUF8437-91-22 13:09:00 Test Item Value Reference Range Interpretation Comments Lactic Acid Lvl (test code = Lactic 1.0 0.5-2.2 N Acid Lvl) [facility] AlliancePihjfrqIJOXGAEHL2378-85-45 12:20:00 Test Item Value Reference Range Interpretation Comments U Preg (test code = U Negative (09/01/2011 N Preg) 07:20:00) [facility]gnkuupUUHHFSEWUN4613-54-02 12:20:00 Test Item Value Reference Range Interpretation Comments UA Sq Epi (test code Occasional /LPF N = UA Sq Epi) (09/01/2011 07:20:00) [facility]aJkdkqvqFEXJRHMZVB7528-44-00 12:20:00 Test Item Value Reference Range Interpretation Comments UA Leuk Est (test Negative (09/01/2011 N code = UA Leuk Est) 07:20:00) [facility]aMcatenaHOHGWRLMMU2920-26-30 12:20:00 Test Item Value Reference Range Interpretation Comments UA Nitrite (test code Negative (09/01/2011 N = UA Nitrite) 07:20:00) [facility]aJaeeljlGIVOHWQQEE5104-35-79 12:20:00 Test Item Value Reference Range Interpretation Comments UA Urobilinogen (test code = UA 0.2 0.1-1.0 N Urobilinogen) [facility]aZkwfaloIAZQDPRFPA2786-70-90 12:20:00 Test Item Value Reference Range Interpretation Comments UA Blood (test code = Negative (09/01/2011 N UA Blood) 07:20:00) [facility]td[facility]qJDAQTZACHJ4017-44-[facility] 12:20:00 Test Item Value Reference Range Interpretation Comments UA Ketones (test code = >=80 mg/dL A UA Ketones) *ABN*(09/01/2011 07:20:00) [facility]aleScsonkyAHOLLNOCIF2981-38-10 12:20:00 Test Item Value Reference Range Interpretation Comments UA Protein (test code Negative (09/01/2011 N = UA Protein) 07:20:00) [facility]valeLddxrwrZISMHAPKDM0479-81-84 12:20:00 Test Item Value Reference Range Interpretation Comments UA pH (test code = UA pH) 6.0 1 5.0-8.0 N [facility]valeDynvvrlGSKMLTNHOE8409-78-44 12:20:00 Test Item Value Reference Range Interpretation Comments UA Bili (test code = Negative (09/01/2011 N UA Bili) 07:20:00) [facility]ZqpwhqqAMBYDWFSFO2095-55-90 12:20:00 Test Item Value Reference Range Interpretation Comments UA Glucose (test code = >=1000 mg/dL A UA Glucose) *ABN*(09/01/2011 07:20:00) [facility]NktmtcrRMXGMITNLA5288-19-14 12:20:00 Test Item Value Reference Range Interpretation Comments UA Spec Grav (test code = UA Spec 1.035 1 H Grav) [facility]valeOiyshavZMQCPLCQUJ2525-41-75 12:20:00 Test Item Value Reference Range Interpretation Comments UA Turbidity (test code = Clear (09/01/2011 N UA Turbidity) 07:20:00) [facility]valeKjzfpigKLWSDYAEVT7761-13-50 12:20:00 Test Item Value Reference Range Interpretation Comments UA Color (test code = Yellow *NA*(09/01/2011 UA Color) 07:20:00) [facility]anoZnnnfkePIAMNDBEA8753-05-13 12:20:00 Test Item Value Reference Range Interpretation Comments U Preg (test code = U Negative (09/01/2011 N Preg) 07:20:00) [facility]valeOqkerzeCQAWVQPICD2168-60-20 12:20:00 Test Item Value Reference Range Interpretation Comments UA Sq Epi (test code Occasional /LPF N = UA Sq Epi) (09/01/2011 07:20:00) [facility]valeZvyagjqELOUEVDETM1283-35-55 12:20:00 Test Item Value Reference Range Interpretation Comments UA Leuk Est (test Negative (09/01/2011 N code = UA Leuk Est) 07:20:00) [facility]TyhtfbgOKUFEXTQCK1886-59-84 12:20:00 Test Item Value Reference Range Interpretation Comments UA Nitrite (test code Negative (09/01/2011 N = UA Nitrite) 07:20:00) [facility]aYavixgiRDAKHKUXXF5162-69-37 12:20:00 Test Item Value Reference Range Interpretation Comments UA Urobilinogen (test code = UA 0.2 0.1-1.0 N Urobilinogen) [facility]aYvqjssvQLCTYWUASY8036-20-85 12:20:00 Test Item Value Reference Range Interpretation Comments UA Blood (test code = Negative (09/01/2011 N UA Blood) 07:20:00) [facility]aDgtpaqhFUEAXSWYVO3233-23-49 12:20:00 Test Item Value Reference Range Interpretation Comments UA Ketones (test code = >=80 mg/dL A UA Ketones) *ABN*(09/01/2011 07:20:00) [facility]aUxpwlvwSGBKLSAKLO5374-16-48 12:20:00 Test Item Value Reference Range Interpretation Comments UA Protein (test code Negative (09/01/2011 N = UA Protein) 07:20:00) [facility]aYxhjfhsZGDRBQINDI5651-59-99 12:20:00 Test Item Value Reference Range Interpretation Comments UA pH (test code = UA pH) 6.0 1 5.0-8.0 N [facility]aJefixpfEBSBTQMYUS2084-05-65 12:20:00 Test Item Value Reference Range Interpretation Comments UA Bili (test code = Negative (09/01/2011 N UA Bili) 07:20:00) [facility]aHdjthlnCUSOWXWJYE6650-08-68 12:20:00 Test Item Value Reference Range Interpretation Comments UA Glucose (test code = >=1000 mg/dL A UA Glucose) *ABN*(09/01/2011 07:20:00) [facility]aVmjvsjbUZOQQNNBRF3570-43-47 12:20:00 Test Item Value Reference Range Interpretation Comments UA Spec Grav (test code = UA Spec 1.035 1 H Grav) [facility]aIajurdbQKWXHPVTXT4421-30-35 12:20:00 Test Item Value Reference Range Interpretation Comments UA Turbidity (test code = Clear (09/01/2011 N UA Turbidity) 07:20:00) [facility]IfgxmbwRVLXLUXTMX8908-59-38 12:20:00 Test Item Value Reference Range Interpretation Comments UA Color (test code = Yellow *NA*(09/01/2011 UA Color) 07:20:00) [facility]anoVxaudgaHVCRTHBCD8890-20-78 12:20:00 Test Item Value Reference Range Interpretation Comments U Preg (test code = U Negative (09/01/2011 N Preg) 07:20:00) [facility]aleGpjlrmhEFEKXIUKWX2182-61-92 12:20:00 Test Item Value Reference Range Interpretation Comments UA Sq Epi (test code Occasional /LPF N = UA Sq Epi) (09/01/2011 07:20:00) [facility]aleJaqldjtCFMOAJEJOG7831-47-32 12:20:00 Test Item Value Reference Range Interpretation Comments UA Leuk Est (test Negative (09/01/2011 N code = UA Leuk Est) 07:20:00) [facility]valeLveygdbLZTFWOKUZL3738-12-02 12:20:00 Test Item Value Reference Range Interpretation Comments UA Nitrite (test code Negative (09/01/2011 N = UA Nitrite) 07:20:00) [facility]valeQmgyutoMEDORDSFWT2097-55-78 12:20:00 Test Item Value Reference Range Interpretation Comments UA Urobilinogen (test code = UA 0.2 0.1-1.0 N Urobilinogen) [facility]valeMquetfdTIYVEFODLP2562-57-64 12:20:00 Test Item Value Reference Range Interpretation Comments UA Blood (test code = Negative (09/01/2011 N UA Blood) 07:20:00) [facility]valeUxuxckfMOZSBNLDAW8055-47-77 12:20:00 Test Item Value Reference Range Interpretation Comments UA Ketones (test code = >=80 mg/dL A UA Ketones) *ABN*(09/01/2011 07:20:00) [facility]valeAobjcstADHJHXADDG8272-51-50 12:20:00 Test Item Value Reference Range Interpretation Comments UA Protein (test code Negative (09/01/2011 N = UA Protein) 07:20:00) [facility]valeUapcbdeOGMORYSMWQ9957-86-57 12:20:00 Test Item Value Reference Range Interpretation Comments UA pH (test code = UA pH) 6.0 1 5.0-8.0 N [facility] PlanoRlqwktaLRBGELGJNX1032-67-76 12:20:00 Test Item Value Reference Range Interpretation Comments UA Bili (test code = Negative (09/01/2011 N UA Bili) 07:20:00) [facility] PlanoMyriimnLMCEIYTVKV9366-11-38 12:20:00 Test Item Value Reference Range Interpretation Comments UA Glucose (test code = >=1000 mg/dL A UA Glucose) *ABN*(09/01/2011 07:20:00) [facility] PlanoTkjyducLFXTJWAKMW6499-20-24 12:20:00 Test Item Value Reference Range Interpretation Comments UA Spec Grav (test code = UA Spec 1.035 1 H Grav) [facility] PlanoDylyaebQGVLSLPXGW2176-68-60 12:20:00 Test Item Value Reference Range Interpretation Comments UA Turbidity (test code = Clear (09/01/2011 N UA Turbidity) 07:20:00) [facility] PlanoQbxokmmMKNIICEYHR2532-34-03 12:20:00 Test Item Value Reference Range Interpretation Comments UA Color (test code = Yellow *NA*(09/01/2011 UA Color) 07:20:00) [facility] PlanoNhprnnzRHWJYIVIK0857-65-84 12:20:00 Test Item Value Reference Range Interpretation Comments U Preg (test code = U Negative (09/01/2011 N Preg) 07:20:00) [facility] PlanoYualnlqLDYBXPFHXK2190-99-87 12:20:00 Test Item Value Reference Range Interpretation Comments UA Sq Epi (test code Occasional /LPF N = UA Sq Epi) (09/01/2011 07:20:00) [facility] PlanoXifakiqMQJUVVOBYS0444-25-05 12:20:00 Test Item Value Reference Range Interpretation Comments UA Leuk Est (test Negative (09/01/2011 N code = UA Leuk Est) 07:20:00) [facility] PlanoClwuwawJXWOQKTXEZ5999-67-87 12:20:00 Test Item Value Reference Range Interpretation Comments UA Nitrite (test code Negative (09/01/2011 N = UA Nitrite) 07:20:00) [facility] PlanoNxnxhicSFEXWGOVPR2205-01-45 12:20:00 Test Item Value Reference Range Interpretation Comments UA Urobilinogen (test code = UA 0.2 0.1-1.0 N Urobilinogen) [facility] PlanoYivacdzMWNBJSSEDG0271-39-87 12:20:00 Test Item Value Reference Range Interpretation Comments UA Blood (test code = Negative (09/01/2011 N UA Blood) 07:20:00) [facility]valePfbkkxwXUDEUSEHWR3205-04-71 12:20:00 Test Item Value Reference Range Interpretation Comments UA Ketones (test code = >=80 mg/dL A UA Ketones) *ABN*(09/01/2011 07:20:00) [facility]MbxfnttSTSNHBYIAB8859-98-85 12:20:00 Test Item Value Reference Range Interpretation Comments UA Protein (test code Negative (09/01/2011 N = UA Protein) 07:20:00) [facility] AllenTjxjvtzNYFHCTYDPW1337-69-07 12:20:00 Test Item Value Reference Range Interpretation Comments UA pH (test code = UA pH) 6.0 1 5.0-8.0 N [facility] AllenOlswubeORQIGEFUKE0837-83-20 12:20:00 Test Item Value Reference Range Interpretation Comments UA Bili (test code = Negative (09/01/2011 N UA Bili) 07:20:00) [facility] AllenGvrqzqwBJRLNMXZJU0287-94-47 12:20:00 Test Item Value Reference Range Interpretation Comments UA Glucose (test code = >=1000 mg/dL A UA Glucose) *ABN*(09/01/2011 07:20:00) [facility] AllenWjhrqxbKVVCXHSSDD8992-21-45 12:20:00 Test Item Value Reference Range Interpretation Comments UA Spec Grav (test code = UA Spec 1.035 1 H Grav) [facility]aleScxqeloOAPUQEDHKH5781-06-60 12:20:00 Test Item Value Reference Range Interpretation Comments UA Turbidity (test code = Clear (09/01/2011 N UA Turbidity) 07:20:00) [facility]valeJmyofkwZVOPZBVELG7874-56-28 12:20:00 Test Item Value Reference Range Interpretation Comments UA Color (test code = Yellow *NA*(09/01/2011 UA Color) 07:20:00) [facility]valeTwgtfgaYFSEJVFNH7732-47-96 12:20:00 Test Item Value Reference Range Interpretation Comments U Preg (test code = U Negative (09/01/2011 N Preg) 07:20:00) [facility] AllenJkfznppYQCNTQVPOP3925-39-79 12:20:00 Test Item Value Reference Range Interpretation Comments UA Sq Epi (test code Occasional /LPF N = UA Sq Epi) (09/01/2011 07:20:00) [facility] AllenBrqwkqvDCCAPHPJPD9566-73-43 12:20:00 Test Item Value Reference Range Interpretation Comments UA Leuk Est (test Negative (09/01/2011 N code = UA Leuk Est) 07:20:00) [facility]aMnjrwccXDNKFBITBI8362-05-27 12:20:00 Test Item Value Reference Range Interpretation Comments UA Nitrite (test code Negative (09/01/2011 N = UA Nitrite) 07:20:00) [facility]aJzrqlmgQOWXSMTTPU4512-63-50 12:20:00 Test Item Value Reference Range Interpretation Comments UA Urobilinogen (test code = UA 0.2 0.1-1.0 N Urobilinogen) [facility]aUxcxhqsXUNEAWKFQX9431-66-05 12:20:00 Test Item Value Reference Range Interpretation Comments UA Blood (test code = Negative (09/01/2011 N UA Blood) 07:20:00) [facility]aXmdlentFMZGNXBESI5919-52-02 12:20:00 Test Item Value Reference Range Interpretation Comments UA Ketones (test code = >=80 mg/dL A UA Ketones) *ABN*(09/01/2011 07:20:00) [facility]aXdinhjeXHNUZCOGVR9296-70-28 12:20:00 Test Item Value Reference Range Interpretation Comments UA Protein (test code Negative (09/01/2011 N = UA Protein) 07:20:00) [facility]aRncyucdXCUQKSVVXP6741-96-46 12:20:00 Test Item Value Reference Range Interpretation Comments UA pH (test code = UA pH) 6.0 1 5.0-8.0 N [facility]aYeqkvhpUKKKXAEPFQ5568-16-74 12:20:00 Test Item Value Reference Range Interpretation Comments UA Bili (test code = Negative (09/01/2011 N UA Bili) 07:20:00) [facility]aQlymryeKRJLJYRMQV2482-57-68 12:20:00 Test Item Value Reference Range Interpretation Comments UA Glucose (test code = >=1000 mg/dL A UA Glucose) *ABN*(09/01/2011 07:20:00) [facility]aNpdtkchRZFMHAGWJP1932-15-83 12:20:00 Test Item Value Reference Range Interpretation Comments UA Spec Grav (test code = UA Spec 1.035 1 H Grav) [facility]aVyvpqeqEJREMROZUZ9559-21-94 12:20:00 Test Item Value Reference Range Interpretation Comments UA Turbidity (test code = Clear (09/01/2011 N UA Turbidity) 07:20:00) [facility]ojwmzrZWRXGQPYHX2292-12-74 12:20:00 Test Item Value Reference Range Interpretation Comments UA Color (test code = Yellow *NA*(09/01/2011 UA Color) 07:20:00) [facility] AllianceXbjenmvEGYFAJOUQ0916-30-53 08:00:00 Test Item Value Reference Range Interpretation Comments Lactic Acid Lvl (test code = Lactic 2.8 0.5-2.2 H Acid Lvl) [facility] AllianceCackakyQYWRMMIHE1101-20-00 08:00:00 Test Item Value Reference Range Interpretation Comments Lactic Acid Lvl (test code = Lactic 2.8 0.5-2.2 H Acid Lvl) [facility] AllianceFulfemrTAVJTCXXK3422-41-49 08:00:00 Test Item Value Reference Range Interpretation Comments Lactic Acid Lvl (test code = Lactic 2.8 0.5-2.2 H Acid Lvl) [facility] AllianceCjwtnnoWUGNMQOHK1942-17-65 08:00:00 Test Item Value Reference Range Interpretation Comments Lactic Acid Lvl (test code = Lactic 2.8 0.5-2.2 H Acid Lvl) [facility] AllianceXacxppnRCODXLCGD3886-92-60 08:00:00 Test Item Value Reference Range Interpretation Comments Lactic Acid Lvl (test code = Lactic 2.8 0.5-2.2 H Acid Lvl) [facility] AllianceXpyazdvEGSXHTPLO8266-56-71 07:47:00 Test Item Value Reference Range Interpretation Comments Magnesium Lvl (test code = Magnesium 1.5 1.8-2.4 L Lvl) [facility]NfsxiaoKZYJRRCWDQ8100-34-94 07:47:00 Test Item Value Reference Range Interpretation Comments Polychrom (test code = Slight (09/01/2011 N Polychrom) 02:47:00) [facility] HospitalLdxykixTVTSQYBBUE9723-54-79 07:47:00 Test Item Value Reference Range Interpretation Comments Anisocyte (test code = 1+ *ABN*(09/01/2011 A Anisocyte) 02:47:00) [facility] HospitalHkwwmyuPPPDYVQZOF9766-78-52 07:47:00 Test Item Value Reference Range Interpretation Comments Large Plt (test code = Slight *ABN*(09/01/2011 A Large Plt) 02:47:00) [facility] HospitalFxcobgrHVNYEZUNIM3302-86-66 07:47:00 Test Item Value Reference Range Interpretation Comments Tear Cell (test code = Tear Cell) [facility] HospitalShuycltULBBHOLFLH6579-68-45 07:47:00 Test Item Value Reference Range Interpretation Comments Elliptocyte (test code = Slight A Elliptocyte) *ABN*(09/01/2011 02:47:00) [facility] AllianceDambykiNFZFJABKT5663-24-04 07:47:00 Test Item Value Reference Range Interpretation Comments Magnesium Lvl (test code = Magnesium 1.5 1.8-2.4 L Lvl) [facility] HospitalTjzemzhPYCJWTBVHS1154-30-49 07:47:00 Test Item Value Reference Range Interpretation Comments Polychrom (test code = Slight (09/01/2011 N Polychrom) 02:47:00) [facility] HospitalGtlxzuqRAUVIMVGTT8229-95-60 07:47:00 Test Item Value Reference Range Interpretation Comments Anisocyte (test code = 1+ *ABN*(09/01/2011 A Anisocyte) 02:47:00) [facility] HospitalPkchjsrGZCGDYRQTO4258-51-87 07:47:00 Test Item Value Reference Range Interpretation Comments Large Plt (test code = Slight *ABN*(09/01/2011 A Large Plt) 02:47:00) [facility] HospitalGcrlzccSRXJKTRULI8545-46-15 07:47:00 Test Item Value Reference Range Interpretation Comments Tear Cell (test code = Tear Cell) [facility] HospitalTwmaugqUSZWBEPZRO7001-19-20 07:47:00 Test Item Value Reference Range Interpretation Comments Elliptocyte (test code = Slight A Elliptocyte) *ABN*(09/01/2011 02:47:00) [facility] AllianceNjkhqlwYRZMRQKDZ2283-66-55 07:47:00 Test Item Value Reference Range Interpretation Comments Magnesium Lvl (test code = Magnesium 1.5 1.8-2.4 L Lvl) [facility] HospitalEnenchrFTPTZJGVEO8595-03-37 07:47:00 Test Item Value Reference Range Interpretation Comments Polychrom (test code = Slight (09/01/2011 N Polychrom) 02:47:00) [facility] HospitalMnjtlalERMSSPZZFV4107-92-92 07:47:00 Test Item Value Reference Range Interpretation Comments Anisocyte (test code = 1+ *ABN*(09/01/2011 A Anisocyte) 02:47:00) [facility] HospitalWkdjiaiDNRWWPOXLP3050-66-54 07:47:00 Test Item Value Reference Range Interpretation Comments Large Plt (test code = Slight *ABN*(09/01/2011 A Large Plt) 02:47:00) [facility] HospitalOooiiqjWVOLXENTUW2972-81-60 07:47:00 Test Item Value Reference Range Interpretation Comments Tear Cell (test code = Tear Cell) [facility] HospitalOscnjawPJPBOPETJF7934-27-64 07:47:00 Test Item Value Reference Range Interpretation Comments Elliptocyte (test code = Slight A Elliptocyte) *ABN*(09/01/2011 02:47:00) [facility] AllianceTokozdrEYOWHLWBT0999-64-81 07:47:00 Test Item Value Reference Range Interpretation Comments Magnesium Lvl (test code = Magnesium 1.5 1.8-2.4 L Lvl) [facility] HospitalEhlswhlFMTBTMWNZG1014-34-34 07:47:00 Test Item Value Reference Range Interpretation Comments Polychrom (test code = Slight (09/01/2011 N Polychrom) 02:47:00) [facility] HospitalBfuwaqkJJTQJUSAAS4827-97-38 07:47:00 Test Item Value Reference Range Interpretation Comments Anisocyte (test code = 1+ *ABN*(09/01/2011 A Anisocyte) 02:47:00) [facility] HospitalCkolytsWFPWZLSDKR7330-77-28 07:47:00 Test Item Value Reference Range Interpretation Comments Large Plt (test code = Slight *ABN*(09/01/2011 A Large Plt) 02:47:00) [facility] HospitalYqgddewQCMVJVBUKQ2353-05-28 07:47:00 Test Item Value Reference Range Interpretation Comments Tear Cell (test code = Tear Cell) [facility] HospitalJfzsubyCSIEKWCLQK3670-92-48 07:47:00 Test Item Value Reference Range Interpretation Comments Elliptocyte (test code = Slight A Elliptocyte) *ABN*(09/01/2011 02:47:00) [facility] AllianceQdkmxsoXWCYNHLFZ5969-79-56 07:47:00 Test Item Value Reference Range Interpretation Comments Magnesium Lvl (test code = Magnesium 1.5 1.8-2.4 L Lvl) [facility] HospitalYuuxbloSDEVCMOZXF5033-31-82 07:47:00 Test Item Value Reference Range Interpretation Comments Polychrom (test code = Slight (09/01/2011 N Polychrom) 02:47:00) [facility] HospitalJreacqxSGFELYOAMD9060-98-85 07:47:00 Test Item Value Reference Range Interpretation Comments Anisocyte (test code = 1+ *ABN*(09/01/2011 A Anisocyte) 02:47:00) [facility] HospitalUiftoidKGWGXEOHAH4426-29-91 07:47:00 Test Item Value Reference Range Interpretation Comments Large Plt (test code = Slight *ABN*(09/01/2011 A Large Plt) 02:47:00) [facility] HospitalGepugfcZSCAOGZSDJ6590-59-17 07:47:00 Test Item Value Reference Range Interpretation Comments Tear Cell (test code = Tear Cell) [facility] HospitalVloyswbYWINNTMWKJ0031-84-37 07:47:00 Test Item Value Reference Range Interpretation Comments Elliptocyte (test code = Slight A Elliptocyte) *ABN*(09/01/2011 02:47:00) [facility]SE CQYZMYX0150-02-07 17:02:00 Test Item Value Reference Range Interpretation Comments Comment1 (test code = Comment1) Notify RN/ [facility] GLUCOSE ORRHMFD8790-53-68 17:02:00 Test Item Value Reference Range Interpretation Comments Gluc POC Lifscn (test code = Gluc POC 134 65-110 H Lifscn) [facility] GLUCOSE [id number] 17:02:00 Test Item Value Reference Range Interpretation Comments Comment1 (test code = Comment1) Notify RN/ [facility] GLUCOSE KBDCAYX3501-05-06 17:02:00 Test Item Value Reference Range Interpretation Comments Gluc POC Lifscn (test code = Gluc POC 134 65-110 H Lifscn) [facility] GLUCOSE IHRBEGL0952-15-36 17:02:00 Test Item Value Reference Range Interpretation Comments Comment1 (test code = Comment1) Notify TABATHA/ [facility] GLUCOSE [id number] 17:02:00 Test Item Value Reference Range Interpretation Comments Gluc POC Lifscn (test code = Gluc POC 134 65-110 H Lifscn) [facility] GLUCOSE VYEOFWP2871-01-90 17:02:00 Test Item Value Reference Range Interpretation Comments Comment1 (test code = Comment1) Notify TABATHA/ [facility] GLUCOSE [id number] 17:02:00 Test Item Value Reference Range Interpretation Comments Gluc POC Lifscn (test code = Gluc POC 134 65-110 H Lifscn) [facility] GLUCOSE [id number] 17:02:00 Test Item Value Reference Range Interpretation Comments Comment1 (test code = Comment1) Notify RN/ [facility]SE [id number] 17:02:00 Test Item Value Reference Range Interpretation Comments Gluc POC Lifscn (test code = Gluc POC 134 65-110 H Lifscn) [facility] GLUCOSE YMXJWAQ0504-09-22 13:45:00 Test Item Value Reference Range Interpretation Comments Gluc POC Lifscn (test code = Gluc POC 182 65-110 H Lifscn) [facility] GLUCOSE [id number] 13:45:00 Test Item Value Reference Range Interpretation Comments Comment1 (test code = Comment1) Notify RN/ [facility] GLUCOSE OSVCNCL3460-48-01 13:45:00 Test Item Value Reference Range Interpretation Comments Gluc POC Lifscn (test code = Gluc POC 182 65-110 H Lifscn) [facility] GLUCOSE [id number] 13:45:00 Test Item Value Reference Range Interpretation Comments Comment1 (test code = Comment1) Notify RN/ [facility] GLUCOSE [id number] 13:45:00 Test Item Value Reference Range Interpretation Comments Gluc POC Lifscn (test code = Gluc POC 182 65-110 H Lifscn) [facility] GLUCOSE [id number] 13:45:00 Test Item Value Reference Range Interpretation Comments Comment1 (test code = Comment1) Notify RN/ [facility] GLUCOSE [id number] 13:45:00 Test Item Value Reference Range Interpretation Comments Gluc POC Lifscn (test code = Gluc POC 182 65-110 H Lifscn) [facility] GLUCOSE [id number] 13:45:00 Test Item Value Reference Range Interpretation Comments Comment1 (test code = Comment1) Notify RN/ [facility] GLUCOSE [id number] 13:45:00 Test Item Value Reference Range Interpretation Comments Gluc POC Lifscn (test code = Gluc POC 182 65-110 H Lifscn) [facility] GLUCOSE [id number] 13:45:00 Test Item Value Reference Range Interpretation Comments Comment1 (test code = Comment1) Ravi RN/ [facility] AllianceNkgkiwnOSHEGZKXS4628-69-66 10:22:00 Test Item Value Reference Range Interpretation Comments Phosphorus (test code = Phosphorus) 3.0 2.5-4.5 N [facility] AllianceLwqygziUACHKHNVQ7547-66-56 10:22:00 Test Item Value Reference Range Interpretation Comments Magnesium Lvl (test code = Magnesium 1.8 1.8-2.4 N Lvl) [facility] AllianceMfluufkVOIPYRSJY5084-17-40 10:22:00 Test Item Value Reference Range Interpretation Comments Chloride Lvl (test code = Chloride Lvl) 107 95-109 N [facility] AllianceNtkbpafQPNKJFFZR5868-92-72 10:22:00 Test Item Value Reference Range Interpretation Comments Potassium Lvl (test code = Potassium 3.0 3.5-5.1 A Lvl) [facility] AllianceHjrkbyeZZDDMBDXI3983-80-90 10:22:00 Test Item Value Reference Range Interpretation Comments Sodium Lvl (test code = Sodium Lvl) 141 135-145 N [facility] AllianceUhnruxuNOZDPUGQN4378-39-55 10:22:00 Test Item Value Reference Range Interpretation Comments Creatinine Lvl (test code = Creatinine 0.6 0.5-1.4 N Lvl) [facility] AllianceAlvxqwdWZOVZRHXZ4103-67-66 10:22:00 Test Item Value Reference Range Interpretation Comments CO2 (test code = CO2) 23 24-32 L [facility] AllianceEjtddjtXURTOOCHF9484-29-54 10:22:00 Test Item Value Reference Range Interpretation Comments Calcium Lvl (test code = Calcium Lvl) 7.3 8.5-10.5 L [facility] AllianceEwsjinpMMQDMMULV9410-35-36 10:22:00 Test Item Value Reference Range Interpretation Comments Glucose Lvl (test code = Glucose Lvl) 136 [facility] AllianceMvxipbyPKDYKMJGY6708-83-51 10:22:00 Test Item Value Reference Range Interpretation Comments AGAP (test code = AGAP) 14.0 10.0-20.0 N [facility] AllianceTxbauekHNDQUZXTZ2555-59-78 10:22:00 Test Item Value Reference Range Interpretation Comments BUN (test code = BUN) 5 7-22 [facility]HndfsrrEAZXLBTMCI4325-18-21 10:22:00 Test Item Value Reference Range Interpretation Comments Segs (test code = Segs) 69.6 45.0-75.0 N [facility] HospitalJbilreaIHZEHMJWCV4709-70-74 10:22:00 Test Item Value Reference Range Interpretation Comments Lymphocytes (test code = Lymphocytes) 21.5 20.0-40.0 N [facility] HospitalJdwehufVDWTDZZMUY3278-69-10 10:22:00 Test Item Value Reference Range Interpretation Comments Monocytes (test code = Monocytes) 7.6 2.0-12.0 N [facility] HospitalWzgqzobOZTPNVQQDC0975-60-58 10:22:00 Test Item Value Reference Range Interpretation Comments Eosinophils (test code = 1.0 See_Comment N [A utomated message] The Eosinophils) system which ge nerated this result tra nsmitted reference range : <=4.0. The reference r leo was not used to int erpret this result as normal/abnormal . [facility] HospitalUnsrhryDYUQAKVLRJ3121-70-75 10:22:00 Test Item Value Reference Range Interpretation Comments Basophils (test code = 0.3 See_Comment N [Aut omated message] The Basophils) system which ge nerated this result tra nsmitted reference range : <=1.0. The reference r leo was not used to int erpret this result as normal/abnormal . [facility] HospitalUqorerlAGNRSBVJPA5136-84-87 10:22:00 Test Item Value Reference Range Interpretation Comments Segs-Bands # (test code = Segs-Bands #) 4.8 1.5-8.1 N [facility] HospitalDenwthvYXNKUALNAN2521-82-65 10:22:00 Test Item Value Reference Range Interpretation Comments Eosinophils # (test code 0.1 See_Comment N [A utomated message] The = Eosinophils #) system [facility] h generated this result tra nsmitted reference range : <=0.5. The reference r leo was not used to int erpret this result as normal/abnormal . [facility] HospitalXbdxpgkFJXPNXLPBY5804-00-79 10:22:00 Test Item Value Reference Range Interpretation Comments Lymphocytes # (test code = Lymphocytes 1.5 1.0-5.5 N #) [facility] HospitalEkrrpziLSENJDODFK2968-35-63 10:22:00 Test Item Value Reference Range Interpretation Comments Monocytes # (test code 0.5 See_Comment N [Aut omated message] The = Monocytes #) system which generated this result tra nsmitted reference range : <=0.8. The reference r leo was not used to int erpret this result as normal/abnormal . [facility] HospitalXtzxcxhEFZBKPUGWF2138-12-51 10:22:00 Test Item Value Reference Range Interpretation Comments Basophils # (test code 0.0 See_Comment N [Aut omated message] The = Basophils #) system which generated this result tra nsmitted reference range : <=0.2. The reference r leo was not used to int erpret this result as normal/abnormal . [facility] HospitalIofmddyRMPXFZDZGO9928-38-24 10:22:00 Test Item Value Reference Range Interpretation Comments MPV (test code = MPV) 11.0 7.4-10.4 H [facility] HospitalYcmyspmGNABCJVFRO5695-31-57 10:22:00 Test Item Value Reference Range Interpretation Comments Platelet (test code = Platelet) 161 133-450 N [facility] HospitalUndiddrYWHKUMZLWL9970-68-45 10:22:00 Test Item Value Reference Range Interpretation Comments MCH (test code = MCH) 29.6 pg 27.0-31.0 N [facility] HospitalZnzvxjpWWQVIAXLWY5695-14-66 10:22:00 Test Item Value Reference Range Interpretation Comments MCHC (test code = MCHC) 35.4 32.0-36.0 N [facility] HospitalTozdlkbPRBKOQRFRZ7395-02-39 10:22:00 Test Item Value Reference Range Interpretation Comments RDW (test code = RDW) 14.1 11.5-14.5 N [facility] HospitalTvyezvaRYHIDBUTAC6526-95-47 10:22:00 Test Item Value Reference Range Interpretation Comments WBC (test code = WBC) 6.8 3.7-10.4 N [facility] HospitalMbnuflrESWZYRVWTX6351-88-14 10:22:00 Test Item Value Reference Range Interpretation Comments MCV (test code = MCV) 83.5 81.0-99.0 N [facility] HospitalPyvdpomNMQYXHUAEA6481-00-46 10:22:00 Test Item Value Reference Range Interpretation Comments RBC (test code = RBC) 4.44 4.20-5.40 N [facility] HospitalKkbwnlcGLKAULLZQM3830-54-41 10:22:00 Test Item Value Reference Range Interpretation Comments Hgb (test code = Hgb) 13.1 12.0-16.0 N [facility] HospitalRjayatwJUNYWYATMZ1288-17-26 10:22:00 Test Item Value Reference Range Interpretation Comments Hct (test code = Hct) 37.1 36.0-48.0 N [facility] AllianceYymdgayQKYTGGRDP3045-66-42 10:22:00 Test Item Value Reference Range Interpretation Comments Phosphorus (test code = Phosphorus) 3.0 2.5-4.5 N [facility] AllianceDrvdwtbQJLKEMWIW1492-08-35 10:22:00 Test Item Value Reference Range Interpretation Comments Magnesium Lvl (test code = Magnesium 1.8 1.8-2.4 N Lvl) [facility] AllianceIthdfirZJGADNJGJ8682-81-46 10:22:00 Test Item Value Reference Range Interpretation Comments Chloride Lvl (test code = Chloride Lvl) 107 95-109 N [facility] AllianceNogefssIMEGOLIZX3795-37-46 10:22:00 Test Item Value Reference Range Interpretation Comments Potassium Lvl (test code = Potassium 3.0 3.5-5.1 A Lvl) [facility] AllianceQhtqlawQLJFXLCPM3661-64-39 10:22:00 Test Item Value Reference Range Interpretation Comments Sodium Lvl (test code = Sodium Lvl) 141 135-145 N [facility] AllianceGamhqdlMLZJOILKH6245-36-05 10:22:00 Test Item Value Reference Range Interpretation Comments Creatinine Lvl (test code = Creatinine 0.6 0.5-1.4 N Lvl) [facility] AllianceHqodaibLSUIEYYMI8827-83-37 10:22:00 Test Item Value Reference Range Interpretation Comments CO2 (test code = CO2) 23 24-32 L [facility] AllianceFasrdqvXOQLYGHOA5711-95-49 10:22:00 Test Item Value Reference Range Interpretation Comments Calcium Lvl (test code = Calcium Lvl) 7.3 8.5-10.5 L [facility] AllianceEqbnbfgPNQJNTNAH4212-04-35 10:22:00 Test Item Value Reference Range Interpretation Comments Glucose Lvl (test code = Glucose Lvl) 136 [facility] AllianceEubcqgtBYFOUSBPY5794-94-13 10:22:00 Test Item Value Reference Range Interpretation Comments AGAP (test code = AGAP) 14.0 10.0-20.0 N [facility] AllianceWdiixvjQPMSFHIYP5412-06-58 10:22:00 Test Item Value Reference Range Interpretation Comments BUN (test code = BUN) 5 7-22 L [facility] RegionZdnzwwgKSUUIPHASC8059-97-93 10:22:00 Test Item Value Reference Range Interpretation Comments Segs (test code = Segs) 69.6 45.0-75.0 N [facility] HospitalZscgjagQVRKWFNDJP3730-51-75 10:22:00 Test Item Value Reference Range Interpretation Comments Lymphocytes (test code = Lymphocytes) 21.5 20.0-40.0 N [facility] HospitalTfetwilLVDKHLKJQA5161-40-40 10:22:00 Test Item Value Reference Range Interpretation Comments Monocytes (test code = Monocytes) 7.6 2.0-12.0 N [facility] HospitalCzppnaxYYIZNYXGIT3941-56-81 10:22:00 Test Item Value Reference Range Interpretation Comments Eosinophils (test code = 1.0 See_Comment N [A utomated message] The Eosinophils) system which ge nerated this result tra nsmitted reference range : <=4.0. The reference r leo was not used to int erpret this result as normal/abnormal . [facility] HospitalYnyqnbiWFMCGZJOLP0579-11-60 10:22:00 Test Item Value Reference Range Interpretation Comments Basophils (test code = 0.3 See_Comment N [Aut omated message] The Basophils) system which ge nerated this result tra nsmitted reference range : <=1.0. The reference r leo was not used to int erpret this result as normal/abnormal . [facility] HospitalCuxlhtmOEPIVPXVRQ7894-40-35 10:22:00 Test Item Value Reference Range Interpretation Comments Segs-Bands # (test code = Segs-Bands #) 4.8 1.5-8.1 N [facility] HospitalNrrasfgZMGIIAXVNU3812-97-99 10:22:00 Test Item Value Reference Range Interpretation Comments Eosinophils # (test code 0.1 See_Comment N [A utomated message] The = Eosinophils #) system [facility] h generated this result tra nsmitted reference range : <=0.5. The reference r leo was not used to int erpret this result as normal/abnormal . [facility] HospitalYoffbafGQHKOMPBMZ9648-91-31 10:22:00 Test Item Value Reference Range Interpretation Comments Lymphocytes # (test code = Lymphocytes 1.5 1.0-5.5 N #) [facility] HospitalHatganyUGVNCYMQZQ0952-99-48 10:22:00 Test Item Value Reference Range Interpretation Comments Monocytes # (test code 0.5 See_Comment N [Aut omated message] The = Monocytes #) system which generated this result tra nsmitted reference range : <=0.8. The reference r leo was not used to int erpret this result as normal/abnormal . [facility] HospitalBptbpxhPJLLIWEOUR7179-53-96 10:22:00 Test Item Value Reference Range Interpretation Comments Basophils # (test code 0.0 See_Comment N [Aut omated message] The = Basophils #) system which generated this result tra nsmitted reference range : <=0.2. The reference r leo was not used to int erpret this result as normal/abnormal . [facility] HospitalTxijbzqTKIDXHURID1193-76-14 10:22:00 Test Item Value Reference Range Interpretation Comments MPV (test code = MPV) 11.0 7.4-10.4 H [facility] HospitalDuemduxVSWAWNKEJL1221-99-12 10:22:00 Test Item Value Reference Range Interpretation Comments Platelet (test code = Platelet) 161 133-450 N [facility] HospitalAhflvtlTPEHYCAWZN1409-76-16 10:22:00 Test Item Value Reference Range Interpretation Comments MCH (test code = MCH) 29.6 pg 27.0-31.0 N [facility] HospitalQslwxtkJLLAKSNCAS1025-00-02 10:22:00 Test Item Value Reference Range Interpretation Comments MCHC (test code = MCHC) 35.4 32.0-36.0 N [facility] HospitalAepszztCSHUBRSJIZ3699-87-10 10:22:00 Test Item Value Reference Range Interpretation Comments RDW (test code = RDW) 14.1 11.5-14.5 N [facility] HospitalTdghxvmILDYJNYEEQ5431-95-38 10:22:00 Test Item Value Reference Range Interpretation Comments WBC (test code = WBC) 6.8 3.7-10.4 N [facility] HospitalKigjchjOIKXSZRVOS6020-62-23 10:22:00 Test Item Value Reference Range Interpretation Comments MCV (test code = MCV) 83.5 81.0-99.0 N [facility] HospitalEjrfilzXEAKCTYETD2554-41-54 10:22:00 Test Item Value Reference Range Interpretation Comments RBC (test code = RBC) 4.44 4.20-5.40 N [facility] HospitalJkxitrbHZSRYKTJQV3935-02-55 10:22:00 Test Item Value Reference Range Interpretation Comments Hgb (test code = Hgb) 13.1 12.0-16.0 N [facility] HospitalKsgpxiwECGVZMFPNJ9207-80-08 10:22:00 Test Item Value Reference Range Interpretation Comments Hct (test code = Hct) 37.1 36.0-48.0 N [facility] AllianceIdnucfaRFQDOQRGO5158-16-05 10:22:00 Test Item Value Reference Range Interpretation Comments Phosphorus (test code = Phosphorus) 3.0 2.5-4.5 N [facility] AllianceTrcgpzzMNCDCVADJ5680-56-72 10:22:00 Test Item Value Reference Range Interpretation Comments Magnesium Lvl (test code = Magnesium 1.8 1.8-2.4 N Lvl) [facility] AllianceOzpqhsuUMXHCMAKU8438-46-47 10:22:00 Test Item Value Reference Range Interpretation Comments Chloride Lvl (test code = Chloride Lvl) 107 95-109 N [facility] AllianceGtqypmuDNMPPZUZB3750-82-37 10:22:00 Test Item Value Reference Range Interpretation Comments Potassium Lvl (test code = Potassium 3.0 3.5-5.1 A Lvl) [facility] AllianceYughgyhPBLZRTBHT7704-56-97 10:22:00 Test Item Value Reference Range Interpretation Comments Sodium Lvl (test code = Sodium Lvl) 141 135-145 N [facility] AllianceNprxgevOLNMVMGRY9793-95-98 10:22:00 Test Item Value Reference Range Interpretation Comments Creatinine Lvl (test code = Creatinine 0.6 0.5-1.4 N Lvl) [facility] AllianceDjahgqvLGYHNZTVJ7423-72-02 10:22:00 Test Item Value Reference Range Interpretation Comments CO2 (test code = CO2) 23 24-32 L [facility] AllianceTasmixzIGYPMEQDA7727-31-33 10:22:00 Test Item Value Reference Range Interpretation Comments Calcium Lvl (test code = Calcium Lvl) 7.3 8.5-10.5 L [facility] AllianceTbpenbtCGNVOAMXU6838-48-68 10:22:00 Test Item Value Reference Range Interpretation Comments Glucose Lvl (test code = Glucose Lvl) 136 [facility] AllianceZzdlywlDPAHGTCZQ6518-45-28 10:22:00 Test Item Value Reference Range Interpretation Comments AGAP (test code = AGAP) 14.0 10.0-20.0 N [facility] AllianceOtzkkyeOSKWRGNPJ7370-80-65 10:22:00 Test Item Value Reference Range Interpretation Comments BUN (test code = BUN) 5 7-22 L [facility]KvbhbeiYMUJCYFZCC8295-15-38 10:22:00 Test Item Value Reference Range Interpretation Comments Segs (test code = Segs) 69.6 45.0-75.0 N [facility] HospitalAwameikKQBOSQZCSF3448-74-97 10:22:00 Test Item Value Reference Range Interpretation Comments Lymphocytes (test code = Lymphocytes) 21.5 20.0-40.0 N [facility] HospitalYozwnzxNPHHKITWBY6920-63-56 10:22:00 Test Item Value Reference Range Interpretation Comments Monocytes (test code = Monocytes) 7.6 2.0-12.0 N [facility] HospitalLxwvqrcFPNXUYAAUW4701-56-64 10:22:00 Test Item Value Reference Range Interpretation Comments Eosinophils (test code = 1.0 See_Comment N [A utomated message] The Eosinophils) system which ge nerated this result tra nsmitted reference range : <=4.0. The reference r leo was not used to int erpret this result as normal/abnormal . [facility] HospitalWprupnrVBCNESHPGE8602-63-34 10:22:00 Test Item Value Reference Range Interpretation Comments Basophils (test code = 0.3 See_Comment N [Aut omated message] The Basophils) system which ge nerated this result tra nsmitted reference range : <=1.0. The reference r leo was not used to int erpret this result as normal/abnormal . [facility] HospitalRlbhvcyUXZRZGNOEY1194-56-96 10:22:00 Test Item Value Reference Range Interpretation Comments Segs-Bands # (test code = Segs-Bands #) 4.8 1.5-8.1 N [facility] HospitalUubdkjxRDOXBJOJKH3878-11-21 10:22:00 Test Item Value Reference Range Interpretation Comments Eosinophils # (test code 0.1 See_Comment N [A utomated message] The = Eosinophils #) system [facility] h generated this result tra nsmitted reference range : <=0.5. The reference r leo was not used to int erpret this result as normal/abnormal . [facility] HospitalNppxxptFCGQQUTXSS9660-93-36 10:22:00 Test Item Value Reference Range Interpretation Comments Lymphocytes # (test code = Lymphocytes 1.5 1.0-5.5 N #) [facility] HospitalCmxkadhWMGQOKVSZM3375-19-23 10:22:00 Test Item Value Reference Range Interpretation Comments Monocytes # (test code 0.5 See_Comment N [Aut omated message] The = Monocytes #) system which generated this result tra nsmitted reference range : <=0.8. The reference r leo was not used to int erpret this result as normal/abnormal . [facility] HospitalPuokruaBJZKLYUKRV7612-13-89 10:22:00 Test Item Value Reference Range Interpretation Comments Basophils # (test code 0.0 See_Comment N [Aut omated message] The = Basophils #) system which generated this result tra nsmitted reference range : <=0.2. The reference r leo was not used to int erpret this result as normal/abnormal . [facility] HospitalYhyebxcPPILNMEWYE2034-09-54 10:22:00 Test Item Value Reference Range Interpretation Comments MPV (test code = MPV) 11.0 7.4-10.4 H [facility] HospitalBkhmwyuWXCVEYNBVS9449-46-97 10:22:00 Test Item Value Reference Range Interpretation Comments Platelet (test code = Platelet) 161 133-450 N [facility] HospitalIlutghvHMHINIQDFS4659-98-26 10:22:00 Test Item Value Reference Range Interpretation Comments MCH (test code = MCH) 29.6 pg 27.0-31.0 N [facility] HospitalTwojssqFJIDBJCBWG6109-80-13 10:22:00 Test Item Value Reference Range Interpretation Comments MCHC (test code = MCHC) 35.4 32.0-36.0 N [facility] HospitalEvzdrubVQJGKUNFUX8089-12-87 10:22:00 Test Item Value Reference Range Interpretation Comments RDW (test code = RDW) 14.1 11.5-14.5 N [facility] HospitalOoqqgdtYIZGEGVPKS2047-96-20 10:22:00 Test Item Value Reference Range Interpretation Comments WBC (test code = WBC) 6.8 3.7-10.4 N [facility] HospitalOdmfyccWXOGLEZZSN3586-52-08 10:22:00 Test Item Value Reference Range Interpretation Comments MCV (test code = MCV) 83.5 81.0-99.0 N [facility] HospitalGvnipepOLLWEIVHWK5233-38-12 10:22:00 Test Item Value Reference Range Interpretation Comments RBC (test code = RBC) 4.44 4.20-5.40 N [facility] HospitalSlwxdfaDOVDQUHLWV4194-39-79 10:22:00 Test Item Value Reference Range Interpretation Comments Hgb (test code = Hgb) 13.1 12.0-16.0 N [facility] HospitalFwfsqioNRRTDIESMH4260-36-10 10:22:00 Test Item Value Reference Range Interpretation Comments Hct (test code = Hct) 37.1 36.0-48.0 N [facility] AllianceBdmpawyHSXXBCYNM7209-86-10 10:22:00 Test Item Value Reference Range Interpretation Comments Phosphorus (test code = Phosphorus) 3.0 2.5-4.5 N [facility] AllianceUgykpffKJXPWTHTY1527-88-60 10:22:00 Test Item Value Reference Range Interpretation Comments Magnesium Lvl (test code = Magnesium 1.8 1.8-2.4 N Lvl) [facility] AllianceCjaibogZHGAZONZQ2670-10-58 10:22:00 Test Item Value Reference Range Interpretation Comments Chloride Lvl (test code = Chloride Lvl) 107 95-109 N [facility] AllianceAfvxwziIFXRWRNSR0653-41-52 10:22:00 Test Item Value Reference Range Interpretation Comments Potassium Lvl (test code = Potassium 3.0 3.5-5.1 A Lvl) [facility] AllianceCfmyjdpCVZWILNSZ3741-86-87 10:22:00 Test Item Value Reference Range Interpretation Comments Sodium Lvl (test code = Sodium Lvl) 141 135-145 N [facility] AllianceWvdenzgCIVEMTYZP1420-91-46 10:22:00 Test Item Value Reference Range Interpretation Comments Creatinine Lvl (test code = Creatinine 0.6 0.5-1.4 N Lvl) [facility] AllianceQkbhddmUALGAEWZC2319-98-62 10:22:00 Test Item Value Reference Range Interpretation Comments CO2 (test code = CO2) 23 24-32 L [facility] AlliancePovxvphTOCKCFVHF0161-70-04 10:22:00 Test Item Value Reference Range Interpretation Comments Calcium Lvl (test code = Calcium Lvl) 7.3 8.5-10.5 L [facility] AllianceYrndrdmJZBVXOHIS9785-60-10 10:22:00 Test Item Value Reference Range Interpretation Comments Glucose Lvl (test code = Glucose Lvl) 136 [facility] AllianceHjqrjboIRFUFJRZB5656-26-78 10:22:00 Test Item Value Reference Range Interpretation Comments AGAP (test code = AGAP) 14.0 10.0-20.0 N [facility] AllianceYicvxplAOARWEZQY2234-65-92 10:22:00 Test Item Value Reference Range Interpretation Comments BUN (test code = BUN) 5 7-22 L [facility] HospitalAkcikbjCTSAUIZFFE2154-75-70 10:22:00 Test Item Value Reference Range Interpretation Comments Segs (test code = Segs) 69.6 45.0-75.0 N [facility] HospitalQbcmghoSUYQYMZTTK8265-77-15 10:22:00 Test Item Value Reference Range Interpretation Comments Lymphocytes (test code = Lymphocytes) 21.5 20.0-40.0 N [facility] HospitalHgjbnxuPILRPFXLZL9138-54-26 10:22:00 Test Item Value Reference Range Interpretation Comments Monocytes (test code = Monocytes) 7.6 2.0-12.0 N [facility] HospitalVgvvivlGFURCSMTEX1305-88-43 10:22:00 Test Item Value Reference Range Interpretation Comments Eosinophils (test code = 1.0 See_Comment N [A utomated message] The Eosinophils) system which ge nerated this result tra nsmitted reference range : <=4.0. The reference r leo was not used to int erpret this result as normal/abnormal . [facility] HospitalNgrjakbCCOTUJHHKN4284-45-55 10:22:00 Test Item Value Reference Range Interpretation Comments Basophils (test code = 0.3 See_Comment N [Aut omated message] The Basophils) system which ge nerated this result tra nsmitted reference range : <=1.0. The reference r leo was not used to int erpret this result as normal/abnormal . [facility] HospitalKbstmhqKIFHEPXLEK5231-91-49 10:22:00 Test Item Value Reference Range Interpretation Comments Segs-Bands # (test code = Segs-Bands #) 4.8 1.5-8.1 N [facility] HospitalGflwwunCHKOWJMNHQ7467-86-67 10:22:00 Test Item Value Reference Range Interpretation Comments Eosinophils # (test code 0.1 See_Comment N [A utomated message] The = Eosinophils #) system [facility] h generated this result tra nsmitted reference range : <=0.5. The reference r leo was not used to int erpret this result as normal/abnormal . [facility] HospitalLajaxlkZCZOLSYIXU5283-22-90 10:22:00 Test Item Value Reference Range Interpretation Comments Lymphocytes # (test code = Lymphocytes 1.5 1.0-5.5 N #) [facility] HospitalBcuojviICYSIHXTYC7763-42-24 10:22:00 Test Item Value Reference Range Interpretation Comments Monocytes # (test code 0.5 See_Comment N [Aut omated message] The = Monocytes #) system which generated this result tra nsmitted reference range : <=0.8. The reference r leo was not used to int erpret this result as normal/abnormal . [facility] HospitalOdoshkaOSHMUPPGML2001-68-02 10:22:00 Test Item Value Reference Range Interpretation Comments Basophils # (test code 0.0 See_Comment N [Aut omated message] The = Basophils #) system which generated this result tra nsmitted reference range : <=0.2. The reference r leo was not used to int erpret this result as normal/abnormal . [facility] HospitalTqjyxvsAVMQLUVRXH5148-70-05 10:22:00 Test Item Value Reference Range Interpretation Comments MPV (test code = MPV) 11.0 7.4-10.4 H [facility] HospitalDqtazjeNELIZDGNVA7106-01-64 10:22:00 Test Item Value Reference Range Interpretation Comments Platelet (test code = Platelet) 161 133-450 N [facility] HospitalDwcavxrSIZEPHPMUV6099-55-83 10:22:00 Test Item Value Reference Range Interpretation Comments MCH (test code = MCH) 29.6 pg 27.0-31.0 N [facility] HospitalWadfwavIORKQGISPX9466-35-84 10:22:00 Test Item Value Reference Range Interpretation Comments MCHC (test code = MCHC) 35.4 32.0-36.0 N [facility] HospitalXcjnjivQRZWATCLFX9868-28-94 10:22:00 Test Item Value Reference Range Interpretation Comments RDW (test code = RDW) 14.1 11.5-14.5 N [facility] HospitalYvjxcdeYXLRYEKBMM3718-36-63 10:22:00 Test Item Value Reference Range Interpretation Comments WBC (test code = WBC) 6.8 3.7-10.4 N [facility] HospitalObukwkkQAHNEGUDBK7571-17-05 10:22:00 Test Item Value Reference Range Interpretation Comments MCV (test code = MCV) 83.5 81.0-99.0 N [facility] HospitalSdxqbosVGKOSOKJWS9102-95-27 10:22:00 Test Item Value Reference Range Interpretation Comments RBC (test code = RBC) 4.44 4.20-5.40 N [facility] HospitalVxmyxhvSYRYIYGQHT1105-49-31 10:22:00 Test Item Value Reference Range Interpretation Comments Hgb (test code = Hgb) 13.1 12.0-16.0 N [facility] HospitalPgnwrtfVHUWBSHRXD0541-09-49 10:22:00 Test Item Value Reference Range Interpretation Comments Hct (test code = Hct) 37.1 36.0-48.0 N [facility] AllianceTtqbwgaMGDTCRHRC5001-39-94 10:22:00 Test Item Value Reference Range Interpretation Comments Phosphorus (test code = Phosphorus) 3.0 2.5-4.5 N [facility] AllianceWvxzwgnEYGNBIOON4436-37-64 10:22:00 Test Item Value Reference Range Interpretation Comments Magnesium Lvl (test code = Magnesium 1.8 1.8-2.4 N Lvl) [facility] AllianceXgwcxolNRKYYMXJQ8819-89-20 10:22:00 Test Item Value Reference Range Interpretation Comments Chloride Lvl (test code = Chloride Lvl) 107 95-109 N [facility] AllianceZgumslbWXFBGNRQU1504-01-93 10:22:00 Test Item Value Reference Range Interpretation Comments Potassium Lvl (test code = Potassium 3.0 3.5-5.1 A Lvl) [facility] AllianceRqvzgehVLZTGBJYB3427-11-05 10:22:00 Test Item Value Reference Range Interpretation Comments Sodium Lvl (test code = Sodium Lvl) 141 135-145 N [facility] AllianceCuwhlfkASUTAPFEX2403-78-94 10:22:00 Test Item Value Reference Range Interpretation Comments Creatinine Lvl (test code = Creatinine 0.6 0.5-1.4 N Lvl) [facility] AllianceXbvghpyHQXONDNOC2516-31-70 10:22:00 Test Item Value Reference Range Interpretation Comments CO2 (test code = CO2) 23 24-32 L [facility] AllianceZrkigcbAXCBVYOBM8581-81-22 10:22:00 Test Item Value Reference Range Interpretation Comments Calcium Lvl (test code = Calcium Lvl) 7.3 8.5-10.5 L [facility] AllianceYccdrzlMVDYUQYDH8523-18-81 10:22:00 Test Item Value Reference Range Interpretation Comments Glucose Lvl (test code = Glucose Lvl) 136 [facility] AllianceLzgsfbsREAVPWYDE3173-02-93 10:22:00 Test Item Value Reference Range Interpretation Comments AGAP (test code = AGAP) 14.0 10.0-20.0 N [facility] AllianceBlodtcmGWCKJCJYF6211-18-75 10:22:00 Test Item Value Reference Range Interpretation Comments BUN (test code = BUN) 5 7-22 L [facility] HospitalNjzihsfGILNOMQUCF2581-14-25 10:22:00 Test Item Value Reference Range Interpretation Comments Segs (test code = Segs) 69.6 45.0-75.0 N [facility] HospitalImemodyRAITRMBOCY7315-66-48 10:22:00 Test Item Value Reference Range Interpretation Comments Lymphocytes (test code = Lymphocytes) 21.5 20.0-40.0 N [facility] HospitalOjhrspdMAHDVWVNIP2843-56-90 10:22:00 Test Item Value Reference Range Interpretation Comments Monocytes (test code = Monocytes) 7.6 2.0-12.0 N [facility] HospitalZfvwrrgQOIDIYXYBB2358-67-27 10:22:00 Test Item Value Reference Range Interpretation Comments Eosinophils (test code = 1.0 See_Comment N [A utomated message] The Eosinophils) system which ge nerated this result tra nsmitted reference range : <=4.0. The reference r leo was not used to int erpret this result as normal/abnormal . [facility] HospitalEgfeqmoIVKKFQNVGN0617-88-74 10:22:00 Test Item Value Reference Range Interpretation Comments Basophils (test code = 0.3 See_Comment N [Aut omated message] The Basophils) system which ge nerated this result tra nsmitted reference range : <=1.0. The reference r leo was not used to int erpret this result as normal/abnormal . [facility] HospitalCaufqvmDQINLVXDUJ8904-58-66 10:22:00 Test Item Value Reference Range Interpretation Comments Segs-Bands # (test code = Segs-Bands #) 4.8 1.5-8.1 N [facility] HospitalDypbmrnFMPMCPCKWQ4895-60-49 10:22:00 Test Item Value Reference Range Interpretation Comments Eosinophils # (test code 0.1 See_Comment N [A utomated message] The = Eosinophils #) system whic h generated this result tra nsmitted reference range : <=0.5. The reference r leo was not used to int erpret this result as normal/abnormal . [facility] HospitalFjksrqvGDRGIDJNKC4551-68-18 10:22:00 Test Item Value Reference Range Interpretation Comments Lymphocytes # (test code = Lymphocytes 1.5 1.0-5.5 N #) [facility] HospitalAuhthcvLMNPVNGXJS9308-98-58 10:22:00 Test Item Value Reference Range Interpretation Comments Monocytes # (test code 0.5 See_Comment N [Aut omated message] The = Monocytes #) system which generated this result tra nsmitted reference range : <=0.8. The reference r leo was not used to int erpret this result as normal/abnormal . [facility] HospitalOjbpsrtPXYTXHATWW9890-28-86 10:22:00 Test Item Value Reference Range Interpretation Comments Basophils # (test code 0.0 See_Comment N [Aut omated message] The = Basophils #) system which generated this result tra nsmitted reference range : <=0.2. The reference r leo was not used to int erpret this result as normal/abnormal . [facility] HospitalAjxwrprBAUBYZQKHV6996-85-94 10:22:00 Test Item Value Reference Range Interpretation Comments MPV (test code = MPV) 11.0 7.4-10.4 H [facility] HospitalLdtuicsIRYEYPNUXY7802-92-78 10:22:00 Test Item Value Reference Range Interpretation Comments Platelet (test code = Platelet) 161 133-450 N [facility] HospitalMiylagcRWYDHYRKJJ9161-32-25 10:22:00 Test Item Value Reference Range Interpretation Comments MCH (test code = MCH) 29.6 pg 27.0-31.0 N [facility] HospitalUkjtcynZKKVNCLNNL0031-79-21 10:22:00 Test Item Value Reference Range Interpretation Comments MCHC (test code = MCHC) 35.4 32.0-36.0 N [facility] HospitalSxkpobmQEHMWDGERP3208-51-18 10:22:00 Test Item Value Reference Range Interpretation Comments RDW (test code = RDW) 14.1 11.5-14.5 N [facility] HospitalZdcrrrfKFBNRSGQKD7961-98-27 10:22:00 Test Item Value Reference Range Interpretation Comments WBC (test code = WBC) 6.8 3.7-10.4 N [facility] HospitalDajdbikMIOLXWBYMH0438-10-18 10:22:00 Test Item Value Reference Range Interpretation Comments MCV (test code = MCV) 83.5 81.0-99.0 N [facility] HospitalVamjkflINITCHTLWH5603-62-55 10:22:00 Test Item Value Reference Range Interpretation Comments RBC (test code = RBC) 4.44 4.20-5.40 N [facility] HospitalAvqwoyjQVHQEUWMFV9765-53-30 10:22:00 Test Item Value Reference Range Interpretation Comments Hgb (test code = Hgb) 13.1 12.0-16.0 N [facility] HospitalOyiuszbQMSRMJGXUH0832-90-82 10:22:00 Test Item Value Reference Range Interpretation Comments Hct (test code = Hct) 37.1 36.0-48.0 N [facility] GLUCOSE RFOXUXJ0492-10-76 02:20:00 Test Item Value Reference Range Interpretation Comments Comment1 (test code = Comment1) Notify RN/ [facility] GLUCOSE RNDULEM3934-51-47 02:20:00 Test Item Value Reference Range Interpretation Comments Gluc POC [facility] (test code = Gluc POC 332 65-110 H [facility]) [facility] GLUCOSE QQGXFWF2950-52-11 02:20:00 Test Item Value Reference Range Interpretation Comments Comment1 (test code = Comment1) Notify RN/ [facility] GLUCOSE XIMJQRM5539-16-24 02:20:00 Test Item Value Reference Range Interpretation Comments Gluc POC [facility] (test code = Gluc POC 332 65-110 H [facility]) [facility] GLUCOSE RZBZLPU4703-51-19 02:20:00 Test Item Value Reference Range Interpretation Comments Comment1 (test code = Comment1) Notify RN[facility] GLUCOSE ZNKADIE9591-80-25 02:20:00 Test Item Value Reference Range Interpretation Comments Gluc POC [facility] (test code = Gluc POC 332 65-110 H [facility]) [facility] GLUCOSE AHCIGOD7996-54-39 02:20:00 Test Item Value Reference Range Interpretation Comments Comment1 (test code = Comment1) Notify RN[facility] GLUCOSE UQACLNB6835-75-14 02:20:00 Test Item Value Reference Range Interpretation Comments Gluc POC [facility] (test code = Gluc POC 332 65-110 H [facility]) [facility] GLUCOSE DBDJZHS3861-86-17 02:20:00 Test Item Value Reference Range Interpretation Comments Comment1 (test code = Comment1) Notify RN[facility] GLUCOSE TMZXFVJ3306-85-33 02:20:00 Test Item Value Reference Range Interpretation Comments Gluc POC [facility] (test code = Gluc POC 332 65-110 H [facility]) [facility] AllianceKupvmtgRNPJPIJVE0269-40-73 09:47:00 Test Item Value Reference Range Interpretation Comments Phosphorus (test code = Phosphorus) 2.5 2.5-4.5 N [facility] AllianceQclhbzeVEDDOLVHQ9111-07-42 09:47:00 Test Item Value Reference Range Interpretation Comments Glucose Lvl (test code = Glucose Lvl) 201 [facility] AllianceMwqwkuwWYONMXKEK4966-54-66 09:47:00 Test Item Value Reference Range Interpretation Comments BUN (test code = BUN) 7 7-22 N [facility] AllianceBzozkdxRQZHLKMUM2960-03-12 09:47:00 Test Item Value Reference Range Interpretation Comments CO2 (test code = CO2) 19 24-32 L [facility] AllianceIrvqgnnXIKLYHPUG5958-30-85 09:47:00 Test Item Value Reference Range Interpretation Comments Creatinine Lvl (test code = Creatinine 0.3 0.5-1.4 L Lvl) [facility] AllianceIsopjitONXIDFZMV6515-22-82 09:47:00 Test Item Value Reference Range Interpretation Comments Sodium Lvl (test code = Sodium Lvl) 137 135-145 N [facility] AllianceEjftdznXSDPIQVMP3819-57-34 09:47:00 Test Item Value Reference Range Interpretation Comments Chloride Lvl (test code = Chloride Lvl) 103 95-109 N [facility] AllianceTwhxjzkEXWOQOYDO0157-75-49 09:47:00 Test Item Value Reference Range Interpretation Comments Potassium Lvl (test code = Potassium 3.6 3.5-5.1 N Lvl) [facility] AllianceEiqqmhdEJRQLEMFQ0811-60-56 09:47:00 Test Item Value Reference Range Interpretation Comments Calcium Lvl (test code = Calcium Lvl) 7.9 8.5-10.5 L [facility] AllianceTsmvebgAAIDHRVZG5282-38-68 09:47:00 Test Item Value Reference Range Interpretation Comments AGAP (test code = AGAP) 18.6 10.0-20.0 N [facility] AllianceVupstywHCIBNRZXL0041-20-07 09:47:00 Test Item Value Reference Range Interpretation Comments Magnesium Lvl (test code = Magnesium 1.6 1.8-2.4 L Lvl) [facility] HospitalLrsytdoEQKBYKMSEW3694-28-05 09:47:00 Test Item Value Reference Range Interpretation Comments Basophils # (test code 0.0 See_Comment N [Aut omated message] The = Basophils #) system which generated this result tra nsmitted reference range : <=0.2. The reference r leo was not used to int erpret this result as normal/abnormal . [facility] HospitalSyjurrvEWSVHMFZDK9969-59-29 09:47:00 Test Item Value Reference Range Interpretation Comments Eosinophils (test code = 0.4 See_Comment N [A utomated message] The Eosinophils) system which ge nerated this result tra nsmitted reference range : <=4.0. The reference r leo was not used to int erpret this result as normal/abnormal . [facility] HospitalWzidnuaUKJYSKXUNF0292-69-28 09:47:00 Test Item Value Reference Range Interpretation Comments Basophils (test code = 0.5 See_Comment N [Aut omated message] The Basophils) system which ge nerated this result tra nsmitted reference range : <=1.0. The reference r leo was not used to int erpret this result as normal/abnormal . [facility] HospitalUpshwivQUKSPWAONV1616-18-31 09:47:00 Test Item Value Reference Range Interpretation Comments Segs-Bands # (test code = Segs-Bands #) 5.9 1.5-8.1 N [facility] HospitalCsrwozzMPCDGETURD5468-78-54 09:47:00 Test Item Value Reference Range Interpretation Comments Lymphocytes # (test code = Lymphocytes 1.2 1.0-5.5 N #) [facility] HospitalVenoxtxARXUOFIRHD4726-96-93 09:47:00 Test Item Value Reference Range Interpretation Comments Monocytes # (test code 0.5 See_Comment N [Aut omated message] The = Monocytes #) system which generated this result tra nsmitted reference range : <=0.8. The reference r leo was not used to int erpret this result as normal/abnormal . [facility] HospitalDwddirtMBPVIWLEFW1290-40-93 09:47:00 Test Item Value Reference Range Interpretation Comments Eosinophils # (test code 0.0 See_Comment N [A utomated message] The = Eosinophils #) system whic h generated this result tra nsmitted reference range : <=0.5. The reference r leo was not used to int erpret this result as normal/abnormal . [facility] HospitalVlcpsueSWRMKGXLJP8027-41-60 09:47:00 Test Item Value Reference Range Interpretation Comments Segs (test code = Segs) 76.9 45.0-75.0 H [facility] HospitalXklxjhhIUURBRRGXA4597-20-70 09:47:00 Test Item Value Reference Range Interpretation Comments Lymphocytes (test code = Lymphocytes) 15.9 20.0-40.0 L [facility] HospitalTqbfljgTRAAYFVUCB0614-31-46 09:47:00 Test Item Value Reference Range Interpretation Comments Monocytes (test code = Monocytes) 6.3 2.0-12.0 N [facility] [facility]ODS8418-30-20 09:47:00 Test Item Value Reference Range Interpretation Comments MCV (test code = MCV) 82.8 81.0-99.0 N [facility]FfiiqldNPZHHCIRZV3161-21-90 09:47:00 Test Item Value Reference Range Interpretation Comments Hct (test code = Hct) 39.7 36.0-48.0 N [facility] HospitalOufowpsJHYNUYFJFO8394-51-49 09:47:00 Test Item Value Reference Range Interpretation Comments MCH (test code = MCH) 29.1 pg 27.0-31.0 N [facility] HospitalRmwjvpnHDZPDZRJVN4449-46-15 09:47:00 Test Item Value Reference Range Interpretation Comments Hgb (test code = Hgb) 14.0 12.0-16.0 N [facility] HospitalYsxcezvDHTDNJEMTV4734-61-06 09:47:00 Test Item Value Reference Range Interpretation Comments MCHC (test code = MCHC) 35.2 32.0-36.0 N [facility] HospitalAspwizyMAKCVYEHNA5315-77-41 09:47:00 Test Item Value Reference Range Interpretation Comments RDW (test code = RDW) 13.9 11.5-14.5 N [facility] HospitalJdoarkoYTPLAFCQZU8056-73-43 09:47:00 Test Item Value Reference Range Interpretation Comments Platelet (test code = Platelet) 160 133-450 N [facility] HospitalUffftobFFWJPFDSJA2175-81-23 09:47:00 Test Item Value Reference Range Interpretation Comments MPV (test code = MPV) 11.9 7.4-10.4 H [facility] HospitalIcnhyanPVVPLPAVXW9733-21-19 09:47:00 Test Item Value Reference Range Interpretation Comments WBC (test code = WBC) 7.7 3.7-10.4 N [facility] HospitalKbuzgxsGSWXRJOPXM2306-89-76 09:47:00 Test Item Value Reference Range Interpretation Comments RBC (test code = RBC) 4.80 4.20-5.40 N [facility] AllianceMvtfntiOIQZAWCSG7483-01-66 09:47:00 Test Item Value Reference Range Interpretation Comments Phosphorus (test code = Phosphorus) 2.5 2.5-4.5 N [facility] AllianceIabqmnkNDMRIHSTW9344-15-27 09:47:00 Test Item Value Reference Range Interpretation Comments Glucose Lvl (test code = Glucose Lvl) 201 [facility] AllianceRxcnoorDIDYIGNOQ7167-16-87 09:47:00 Test Item Value Reference Range Interpretation Comments BUN (test code = BUN) 7 7-22 N [facility] AllianceVwtvdmzCUDOPVGFY8842-92-92 09:47:00 Test Item Value Reference Range Interpretation Comments CO2 (test code = CO2) 19 24-32 L [facility] AllianceQqhfcvbGWANPSFSV1913-88-28 09:47:00 Test Item Value Reference Range Interpretation Comments Creatinine Lvl (test code = Creatinine 0.3 0.5-1.4 L Lvl) [facility] AllianceDacysvsCGCIVMYKE0311-79-43 09:47:00 Test Item Value Reference Range Interpretation Comments Sodium Lvl (test code = Sodium Lvl) 137 135-145 N [facility] AllianceFnqclurNPMWIGZSV1261-17-45 09:47:00 Test Item Value Reference Range Interpretation Comments Chloride Lvl (test code = Chloride Lvl) 103 95-109 N [facility] AllianceAufqjciISBCQXUJV4345-47-09 09:47:00 Test Item Value Reference Range Interpretation Comments Potassium Lvl (test code = Potassium 3.6 3.5-5.1 N Lvl) [facility] AllianceAyndfcgDOJKSATDS6811-35-64 09:47:00 Test Item Value Reference Range Interpretation Comments Calcium Lvl (test code = Calcium Lvl) 7.9 8.5-10.5 L [facility] AllianceJedfizfLGPHIVTIH6899-37-95 09:47:00 Test Item Value Reference Range Interpretation Comments AGAP (test code = AGAP) 18.6 10.0-20.0 N [facility] AllianceWekbdizBQRGXQNAF9665-78-39 09:47:00 Test Item Value Reference Range Interpretation Comments Magnesium Lvl (test code = Magnesium 1.6 1.8-2.4 L Lvl) [facility] HospitalMrixibvQVGMJYUSFU7148-24-22 09:47:00 Test Item Value Reference Range Interpretation Comments Basophils # (test code 0.0 See_Comment N [Aut omated message] The = Basophils #) system which generated this result tra nsmitted reference range : <=0.2. The reference r leo was not used to int erpret this result as normal/abnormal . [facility] HospitalBmpnhasAGIZMNTGIZ5672-96-83 09:47:00 Test Item Value Reference Range Interpretation Comments Eosinophils (test code = 0.4 See_Comment N [A utomated message] The Eosinophils) system which ge nerated this result tra nsmitted reference range : <=4.0. The reference r leo was not used to int erpret this result as normal/abnormal . [facility] HospitalKbvskigLMNWQCRMWI6215-98-62 09:47:00 Test Item Value Reference Range Interpretation Comments Basophils (test code = 0.5 See_Comment N [Aut omated message] The Basophils) system which ge nerated this result tra nsmitted reference range : <=1.0. The reference r leo was not used to int erpret this result as normal/abnormal . [facility] HospitalUsibmagFAEQLODZXD4061-61-54 09:47:00 Test Item Value Reference Range Interpretation Comments Segs-Bands # (test code = Segs-Bands #) 5.9 1.5-8.1 N [facility] HospitalUzgliunLCYMNVTZGM0795-99-63 09:47:00 Test Item Value Reference Range Interpretation Comments Lymphocytes # (test code = Lymphocytes 1.2 1.0-5.5 N #) [facility] HospitalKvuoblkGCRIBSSPIT1366-24-15 09:47:00 Test Item Value Reference Range Interpretation Comments Monocytes # (test code 0.5 See_Comment N [Aut omated message] The = Monocytes #) system which generated this result tra nsmitted reference range : <=0.8. The reference r leo was not used to int erpret this result as normal/abnormal . [facility] HospitalDjxfpgnAHZIYZNSVQ2825-82-27 09:47:00 Test Item Value Reference Range Interpretation Comments Eosinophils # (test code 0.0 See_Comment N [A utomated message] The = Eosinophils #) system whic h generated this result tra nsmitted reference range : <=0.5. The reference r leo was not used to int erpret this result as normal/abnormal . [facility] HospitalNuhnlcwZWFBLQWVUP5837-59-44 09:47:00 Test Item Value Reference Range Interpretation Comments Segs (test code = Segs) 76.9 45.0-75.0 H [facility] HospitalKuzcmvuHOVLMPJRPJ9115-70-32 09:47:00 Test Item Value Reference Range Interpretation Comments Lymphocytes (test code = Lymphocytes) 15.9 20.0-40.0 L [facility] HospitalMybvtlkPCMBJIOURX3411-16-33 09:47:00 Test Item Value Reference Range Interpretation Comments Monocytes (test code = Monocytes) 6.3 2.0-12.0 N [facility] HospitalDoerinpTAWIHYRGDY6883-12-92 09:47:00 Test Item Value Reference Range Interpretation Comments MCV (test code = MCV) 82.8 81.0-99.0 N [facility] HospitalRobykrqROLFEXGTAU2759-81-09 09:47:00 Test Item Value Reference Range Interpretation Comments Hct (test code = Hct) 39.7 36.0-48.0 N [facility] HospitalEqwobqwYDPQVYEZUC5543-58-20 09:47:00 Test Item Value Reference Range Interpretation Comments MCH (test code = MCH) 29.1 pg 27.0-31.0 N [facility] HospitalUwugqqiTUSFDBSEKP5045-86-68 09:47:00 Test Item Value Reference Range Interpretation Comments Hgb (test code = Hgb) 14.0 12.0-16.0 N [facility] HospitalRzqiunoMEOFZUFBCV7555-05-08 09:47:00 Test Item Value Reference Range Interpretation Comments MCHC (test code = MCHC) 35.2 32.0-36.0 N [facility] HospitalUqynjunRFKGAKFJNZ7398-83-22 09:47:00 Test Item Value Reference Range Interpretation Comments RDW (test code = RDW) 13.9 11.5-14.5 N [facility] HospitalRmswlbhUXQZIUPBXH2346-75-09 09:47:00 Test Item Value Reference Range Interpretation Comments Platelet (test code = Platelet) 160 133-450 N [facility] HospitalDdhgrabNEEEJZPXKG4398-28-88 09:47:00 Test Item Value Reference Range Interpretation Comments MPV (test code = MPV) 11.9 7.4-10.4 H [facility] HospitalKneonkaEQINYANLRR4633-06-45 09:47:00 Test Item Value Reference Range Interpretation Comments WBC (test code = WBC) 7.7 3.7-10.4 N [facility] HospitalEaauxvsNMQWZISVHE5583-06-88 09:47:00 Test Item Value Reference Range Interpretation Comments RBC (test code = RBC) 4.80 4.20-5.40 N [facility] AllianceIcipctrBGEFRNFBF0247-04-59 09:47:00 Test Item Value Reference Range Interpretation Comments Phosphorus (test code = Phosphorus) 2.5 2.5-4.5 N [facility] AllianceIittkayXZVSHAUGH0009-17-93 09:47:00 Test Item Value Reference Range Interpretation Comments Glucose Lvl (test code = Glucose Lvl) 201 [facility] AllianceIdxuwmfSUGCUXIVA0952-50-92 09:47:00 Test Item Value Reference Range Interpretation Comments BUN (test code = BUN) 7 7-22 N [facility] AllianceZtxcxvyBPKLCOGNG5824-30-57 09:47:00 Test Item Value Reference Range Interpretation Comments CO2 (test code = CO2) 19 24-32 L [facility] AllianceTecpuexWOWGYQYAB8453-38-96 09:47:00 Test Item Value Reference Range Interpretation Comments Creatinine Lvl (test code = Creatinine 0.3 0.5-1.4 L Lvl) [facility] AllianceLergpksYTPGXSPCL4647-20-72 09:47:00 Test Item Value Reference Range Interpretation Comments Sodium Lvl (test code = Sodium Lvl) 137 135-145 N [facility] AllianceZvihsvsQICESMDHZ7983-27-67 09:47:00 Test Item Value Reference Range Interpretation Comments Chloride Lvl (test code = Chloride Lvl) 103 95-109 N [facility] AllianceIckcscsDAZRRZAPD1926-03-83 09:47:00 Test Item Value Reference Range Interpretation Comments Potassium Lvl (test code = Potassium 3.6 3.5-5.1 N Lvl) [facility] AllianceRcswrfaWEPIAYSBO0474-59-03 09:47:00 Test Item Value Reference Range Interpretation Comments Calcium Lvl (test code = Calcium Lvl) 7.9 8.5-10.5 L [facility] AllianceJqekthiJSDSWAYJO5489-67-23 09:47:00 Test Item Value Reference Range Interpretation Comments AGAP (test code = AGAP) 18.6 10.0-20.0 N [facility] AllianceOcjmivuVZTVADITW3188-36-49 09:47:00 Test Item Value Reference Range Interpretation Comments Magnesium Lvl (test code = Magnesium 1.6 1.8-2.4 L Lvl) [facility] HospitalKrnajckAJAEHSFOPS4747-61-93 09:47:00 Test Item Value Reference Range Interpretation Comments Basophils # (test code 0.0 See_Comment N [Aut omated message] The = Basophils #) system which generated this result tra nsmitted reference range : <=0.2. The reference r leo was not used to int erpret this result as normal/abnormal . [facility] HospitalBpxebvpPNZCGCMHZR4381-39-55 09:47:00 Test Item Value Reference Range Interpretation Comments Eosinophils (test code = 0.4 See_Comment N [A utomated message] The Eosinophils) system which ge nerated this result tra nsmitted reference range : <=4.0. The reference r leo was not used to int erpret this result as normal/abnormal . [facility] HospitalAjjlrvmIVWLJYXHKE0115-90-65 09:47:00 Test Item Value Reference Range Interpretation Comments Basophils (test code = 0.5 See_Comment N [Aut omated message] The Basophils) system which ge nerated this result tra nsmitted reference range : <=1.0. The reference r leo was not used to int erpret this result as normal/abnormal . [facility] HospitalZizxhazKFGQTIPYTY4229-54-21 09:47:00 Test Item Value Reference Range Interpretation Comments Segs-Bands # (test code = Segs-Bands #) 5.9 1.5-8.1 N [facility] HospitalFaymryjICFGMNVPWA5509-51-02 09:47:00 Test Item Value Reference Range Interpretation Comments Lymphocytes # (test code = Lymphocytes 1.2 1.0-5.5 N #) [facility] HospitalVypkvebSOQCEQBZWA0048-76-91 09:47:00 Test Item Value Reference Range Interpretation Comments Monocytes # (test code 0.5 See_Comment N [Aut omated message] The = Monocytes #) system which generated this result tra nsmitted reference range : <=0.8. The reference r leo was not used to int erpret this result as normal/abnormal . [facility] HospitalVzommgrQZKZZOVCEA5314-51-13 09:47:00 Test Item Value Reference Range Interpretation Comments Eosinophils # (test code 0.0 See_Comment N [A utomated message] The = Eosinophils #) system whic h generated this result tra nsmitted reference range : <=0.5. The reference r leo was not used to int erpret this result as normal/abnormal . [facility] HospitalUgkuyhpUWXZKQKKRF9081-35-06 09:47:00 Test Item Value Reference Range Interpretation Comments Segs (test code = Segs) 76.9 45.0-75.0 H [facility] HospitalXtgdbtlQAZFDHGGCG7553-17-51 09:47:00 Test Item Value Reference Range Interpretation Comments Lymphocytes (test code = Lymphocytes) 15.9 20.0-40.0 L [facility] HospitalWkqipyaXEQSYWWFKN9143-84-01 09:47:00 Test Item Value Reference Range Interpretation Comments Monocytes (test code = Monocytes) 6.3 2.0-12.0 N [facility] HospitalXxqgoyaTXTSSNZLOC0965-18-10 09:47:00 Test Item Value Reference Range Interpretation Comments MCV (test code = MCV) 82.8 81.0-99.0 N [facility] HospitalSejoodoACSZWERACK7741-88-81 09:47:00 Test Item Value Reference Range Interpretation Comments Hct (test code = Hct) 39.7 36.0-48.0 N [facility] HospitalUfxvaimKTQSQURJII6617-62-60 09:47:00 Test Item Value Reference Range Interpretation Comments MCH (test code = MCH) 29.1 pg 27.0-31.0 N [facility] HospitalKhcjodbKSEYKVVRLE9189-91-87 09:47:00 Test Item Value Reference Range Interpretation Comments Hgb (test code = Hgb) 14.0 12.0-16.0 N [facility] HospitalDkjuxhbHZTKQUJABU2857-80-36 09:47:00 Test Item Value Reference Range Interpretation Comments MCHC (test code = MCHC) 35.2 32.0-36.0 N [facility] HospitalUucaypcSCEWAUAUHB3330-03-50 09:47:00 Test Item Value Reference Range Interpretation Comments RDW (test code = RDW) 13.9 11.5-14.5 N [facility] HospitalRufvrwvEJUKIAMBLZ4271-35-05 09:47:00 Test Item Value Reference Range Interpretation Comments Platelet (test code = Platelet) 160 133-450 N [facility] HospitalHpsntsqMDGGSTWVFU6197-47-18 09:47:00 Test Item Value Reference Range Interpretation Comments MPV (test code = MPV) 11.9 7.4-10.4 H [facility] HospitalXdlqxonFORFTAWGCP9187-87-95 09:47:00 Test Item Value Reference Range Interpretation Comments WBC (test code = WBC) 7.7 3.7-10.4 N [facility] HospitalGufrkuqDNYSOPPBTF3618-32-11 09:47:00 Test Item Value Reference Range Interpretation Comments RBC (test code = RBC) 4.80 4.20-5.40 N [facility] AllianceLbzszprGJHDHOBBF0078-55-06 09:47:00 Test Item Value Reference Range Interpretation Comments Phosphorus (test code = Phosphorus) 2.5 2.5-4.5 N [facility] AllianceMnvuqnqFUZKGWFUZ0478-07-68 09:47:00 Test Item Value Reference Range Interpretation Comments Glucose Lvl (test code = Glucose Lvl) 201 [facility] AllianceCdknsqjZKCRAQZFD5877-27-66 09:47:00 Test Item Value Reference Range Interpretation Comments BUN (test code = BUN) 7 7-22 N [facility] AllianceDqpheozUUZFPDPHD4039-14-03 09:47:00 Test Item Value Reference Range Interpretation Comments CO2 (test code = CO2) 19 24-32 L [facility] AllianceYktejaoVMXGMJJJW4483-56-17 09:47:00 Test Item Value Reference Range Interpretation Comments Creatinine Lvl (test code = Creatinine 0.3 0.5-1.4 L Lvl) [facility] AllianceZtppbqdBBFZIYFQF4836-17-04 09:47:00 Test Item Value Reference Range Interpretation Comments Sodium Lvl (test code = Sodium Lvl) 137 135-145 N [facility] AllianceGserexjIPMWNOHIX5727-27-97 09:47:00 Test Item Value Reference Range Interpretation Comments Chloride Lvl (test code = Chloride Lvl) 103 95-109 N [facility] AllianceScdszvmGBUCZSLOL5559-16-89 09:47:00 Test Item Value Reference Range Interpretation Comments Potassium Lvl (test code = Potassium 3.6 3.5-5.1 N Lvl) [facility] AllianceYxouusoJWGTQEBWO6566-32-17 09:47:00 Test Item Value Reference Range Interpretation Comments Calcium Lvl (test code = Calcium Lvl) 7.9 8.5-10.5 L [facility] AllianceIyzvcboSRJIWUQNF3283-31-12 09:47:00 Test Item Value Reference Range Interpretation Comments AGAP (test code = AGAP) 18.6 10.0-20.0 N [facility] AllianceClvxpcoRZODOANFE1416-89-17 09:47:00 Test Item Value Reference Range Interpretation Comments Magnesium Lvl (test code = Magnesium 1.6 1.8-2.4 L Lvl) [facility] HospitalHkoeturZHNCARVDDN2772-45-53 09:47:00 Test Item Value Reference Range Interpretation Comments Basophils # (test code 0.0 See_Comment N [Aut omated message] The = Basophils #) system which generated this result tra nsmitted reference range : <=0.2. The reference r leo was not used to int erpret this result as normal/abnormal . [facility] HospitalUhutzzxVQJVNRCGSB9542-58-04 09:47:00 Test Item Value Reference Range Interpretation Comments Eosinophils (test code = 0.4 See_Comment N [A utomated message] The Eosinophils) system which ge nerated this result tra nsmitted reference range : <=4.0. The reference r leo was not used to int erpret this result as normal/abnormal . [facility] HospitalFodfvcsRHAZJBVEWH5675-97-51 09:47:00 Test Item Value Reference Range Interpretation Comments Basophils (test code = 0.5 See_Comment N [Aut omated message] The Basophils) system which ge nerated this result tra nsmitted reference range : <=1.0. The reference r leo was not used to int erpret this result as normal/abnormal . [facility] HospitalHphhadyWPRTUHFNLO3973-04-16 09:47:00 Test Item Value Reference Range Interpretation Comments Segs-Bands # (test code = Segs-Bands #) 5.9 1.5-8.1 N [facility] HospitalNvdjfiqGDLHHOCIJS8485-58-52 09:47:00 Test Item Value Reference Range Interpretation Comments Lymphocytes # (test code = Lymphocytes 1.2 1.0-5.5 N #) [facility] HospitalPgibfrqSBRFZQFHPA4967-12-78 09:47:00 Test Item Value Reference Range Interpretation Comments Monocytes # (test code 0.5 See_Comment N [Aut omated message] The = Monocytes #) system which generated this result tra nsmitted reference range : <=0.8. The reference r leo was not used to int erpret this result as normal/abnormal . [facility] HospitalQsefcyeDHIMIOTKHJ7263-95-88 09:47:00 Test Item Value Reference Range Interpretation Comments Eosinophils # (test code 0.0 See_Comment N [A utomated message] The = Eosinophils #) system whic h generated this result tra nsmitted reference range : <=0.5. The reference r leo was not used to int erpret this result as normal/abnormal . [facility] HospitalWllfpfhDVBHBZWSNB6634-12-69 09:47:00 Test Item Value Reference Range Interpretation Comments Segs (test code = Segs) 76.9 45.0-75.0 H [facility] HospitalUbvymyaGOGFVVXJTZ4493-06-00 09:47:00 Test Item Value Reference Range Interpretation Comments Lymphocytes (test code = Lymphocytes) 15.9 20.0-40.0 L [facility] HospitalQpdiihvZCCYHZSTMY6167-85-24 09:47:00 Test Item Value Reference Range Interpretation Comments Monocytes (test code = Monocytes) 6.3 2.0-12.0 N [facility] HospitalMrrieuvQQOEHQXGGU3827-86-40 09:47:00 Test Item Value Reference Range Interpretation Comments MCV (test code = MCV) 82.8 81.0-99.0 N [facility] HospitalOdisknyBSDTOOJAVX6583-03-70 09:47:00 Test Item Value Reference Range Interpretation Comments Hct (test code = Hct) 39.7 36.0-48.0 N [facility] HospitalFwgghkkQIEFMBJPGC6544-09-21 09:47:00 Test Item Value Reference Range Interpretation Comments MCH (test code = MCH) 29.1 pg 27.0-31.0 N [facility] HospitalVbuxgtqJFLUBNRWVE5710-11-60 09:47:00 Test Item Value Reference Range Interpretation Comments Hgb (test code = Hgb) 14.0 12.0-16.0 N [facility] HospitalYoavgzhDRXFPYXRKE2029-72-30 09:47:00 Test Item Value Reference Range Interpretation Comments MCHC (test code = MCHC) 35.2 32.0-36.0 N [facility] HospitalGrsjlgvFYKYXLAHFR4617-52-01 09:47:00 Test Item Value Reference Range Interpretation Comments RDW (test code = RDW) 13.9 11.5-14.5 N [facility] HospitalFjcbckzBCGHJSNBHE6133-31-28 09:47:00 Test Item Value Reference Range Interpretation Comments Platelet (test code = Platelet) 160 133-450 N [facility] HospitalYywoxylTYJPQVSXBE9808-22-87 09:47:00 Test Item Value Reference Range Interpretation Comments MPV (test code = MPV) 11.9 7.4-10.4 H [facility] HospitalRwrxpstFRNOJPUINR4092-39-22 09:47:00 Test Item Value Reference Range Interpretation Comments WBC (test code = WBC) 7.7 3.7-10.4 N [facility] HospitalCmgeqxqROKTLAQUOL1704-73-98 09:47:00 Test Item Value Reference Range Interpretation Comments RBC (test code = RBC) 4.80 4.20-5.40 N [facility] AllianceYqfxulpXVEEXBXWU0642-62-11 09:47:00 Test Item Value Reference Range Interpretation Comments Phosphorus (test code = Phosphorus) 2.5 2.5-4.5 N [facility] AllianceAonoalyAWOGSANRJ0558-23-39 09:47:00 Test Item Value Reference Range Interpretation Comments Glucose Lvl (test code = Glucose Lvl) 201 [facility] AlliancePnyyddtTNZQCQVJA8515-00-66 09:47:00 Test Item Value Reference Range Interpretation Comments BUN (test code = BUN) 7 7-22 N [facility] AllianceXinnbyiFSCMGBWHP3119-67-10 09:47:00 Test Item Value Reference Range Interpretation Comments CO2 (test code = CO2) 19 24-32 L [facility] AllianceAiqyzblGMOMDQVFI8919-63-66 09:47:00 Test Item Value Reference Range Interpretation Comments Creatinine Lvl (test code = Creatinine 0.3 0.5-1.4 L Lvl) [facility] AllianceDfueutgJDWQSVDRZ7141-68-94 09:47:00 Test Item Value Reference Range Interpretation Comments Sodium Lvl (test code = Sodium Lvl) 137 135-145 N [facility] AllianceOcdtljfTSAGJFLTJ4259-82-31 09:47:00 Test Item Value Reference Range Interpretation Comments Chloride Lvl (test code = Chloride Lvl) 103 95-109 N [facility] AllianceMouyzmqHGMDTSXHI4656-73-43 09:47:00 Test Item Value Reference Range Interpretation Comments Potassium Lvl (test code = Potassium 3.6 3.5-5.1 N Lvl) [facility] AllianceDcvzfcgLTILCLTML3796-31-62 09:47:00 Test Item Value Reference Range Interpretation Comments Calcium Lvl (test code = Calcium Lvl) 7.9 8.5-10.5 L [facility] AllianceTvxcxqzSAKSLDOIU5634-08-11 09:47:00 Test Item Value Reference Range Interpretation Comments AGAP (test code = AGAP) 18.6 10.0-20.0 N [facility] AllianceGmmcxjxVVFOZZPYN9497-65-20 09:47:00 Test Item Value Reference Range Interpretation Comments Magnesium Lvl (test code = Magnesium 1.6 1.8-2.4 L Lvl) [facility] HospitalXcnuonpTCYHSRGSLV0809-01-90 09:47:00 Test Item Value Reference Range Interpretation Comments Basophils # (test code 0.0 See_Comment N [Aut omated message] The = Basophils #) system which generated this result tra nsmitted reference range : <=0.2. The reference r leo was not used to int erpret this result as normal/abnormal . [facility] HospitalWlyotmpAOLSTKYHYS7475-33-25 09:47:00 Test Item Value Reference Range Interpretation Comments Eosinophils (test code = 0.4 See_Comment N [A utomated message] The Eosinophils) system which ge nerated this result tra nsmitted reference range : <=4.0. The reference r leo was not used to int erpret this result as normal/abnormal . [facility] HospitalHsqdfplXLXGTWWPVN8445-34-48 09:47:00 Test Item Value Reference Range Interpretation Comments Basophils (test code = 0.5 See_Comment N [Aut omated message] The Basophils) system which ge nerated this result tra nsmitted reference range : <=1.0. The reference r leo was not used to int erpret this result as normal/abnormal . [facility] HospitalZanovpaIALUXTOZKF1923-80-64 09:47:00 Test Item Value Reference Range Interpretation Comments Segs-Bands # (test code = Segs-Bands #) 5.9 1.5-8.1 N [facility] HospitalHbctycdLDYDXBGOYT0904-79-07 09:47:00 Test Item Value Reference Range Interpretation Comments Lymphocytes # (test code = Lymphocytes 1.2 1.0-5.5 N #) [facility] HospitalBtsqcdsNGAJRLVEWT2206-51-24 09:47:00 Test Item Value Reference Range Interpretation Comments Monocytes # (test code 0.5 See_Comment N [Aut omated message] The = Monocytes #) system which generated this result tra nsmitted reference range : <=0.8. The reference r leo was not used to int erpret this result as normal/abnormal . [facility]HsqcmnnKCZTJSHNFA5203-[facility] 09:47:00 Test Item Value Reference Range Interpretation Comments Eosinophils # (test code 0.0 See_Comment N [A utomated message] The = Eosinophils #) system whic h generated this result tra nsmitted reference range : <=0.5. The reference r leo was not used to int erpret this result as normal/abnormal . [facility] HospitalEgnxkaoFRAKLBHDRK1788-30-99 09:47:00 Test Item Value Reference Range Interpretation Comments Segs (test code = Segs) 76.9 45.0-75.0 H [facility] HospitalBorcvzxQCGNJMVXFU5106-20-98 09:47:00 Test Item Value Reference Range Interpretation Comments Lymphocytes (test code = Lymphocytes) 15.9 20.0-40.0 L [facility] HospitalGfxgwlxHTBDPQEODN2580-26-57 09:47:00 Test Item Value Reference Range Interpretation Comments Monocytes (test code = Monocytes) 6.3 2.0-12.0 N [facility] HospitalYoffifuMDMFNEIXSL3937-91-98 09:47:00 Test Item Value Reference Range Interpretation Comments MCV (test code = MCV) 82.8 81.0-99.0 N [facility] HospitalUntqwmhITZMYVBOGX2045-07-94 09:47:00 Test Item Value Reference Range Interpretation Comments Hct (test code = Hct) 39.7 36.0-48.0 N [facility] HospitalGdrffyaIIIEPEGZAE3781-09-46 09:47:00 Test Item Value Reference Range Interpretation Comments MCH (test code = MCH) 29.1 pg 27.0-31.0 N [facility] HospitalRwvjblnFRZDGUFOUQ8967-98-40 09:47:00 Test Item Value Reference Range Interpretation Comments Hgb (test code = Hgb) 14.0 12.0-16.0 N [facility] HospitalQgkbdjwPJUFATNKQM1152-81-49 09:47:00 Test Item Value Reference Range Interpretation Comments MCHC (test code = MCHC) 35.2 32.0-36.0 N [facility] HospitalUthlmemYJKBNTGDIY5378-16-33 09:47:00 Test Item Value Reference Range Interpretation Comments RDW (test code = RDW) 13.9 11.5-14.5 N [facility] HospitalHiufjjjJRZDCLQHTC2365-35-42 09:47:00 Test Item Value Reference Range Interpretation Comments Platelet (test code = Platelet) 160 133-450 N [facility] HospitalTzrpopaUQOKTZORZI5544-75-72 09:47:00 Test Item Value Reference Range Interpretation Comments MPV (test code = MPV) 11.9 7.4-10.4 H [facility] HospitalVljkuetBCIQKZPRXD3580-01-20 09:47:00 Test Item Value Reference Range Interpretation Comments WBC (test code = WBC) 7.7 3.7-10.4 N [facility] HospitalLufkwvfJCFSEUXJHB4269-49-16 09:47:00 Test Item Value Reference Range Interpretation Comments RBC (test code = RBC) 4.80 4.20-5.40 N [facility] AllianceTlinezuCAICBYLTZ3893-92-89 10:28:00 Test Item Value Reference Range Interpretation Comments Phosphorus (test code = Phosphorus) 2.6 2.5-4.5 N [facility] AllianceJnuvejxRURMBZWQW6621-52-08 10:28:00 Test Item Value Reference Range Interpretation Comments Magnesium Lvl (test code = Magnesium 1.8 1.8-2.4 N Lvl) [facility] AllianceQpbsphgIMNASWREO9122-36-36 10:28:00 Test Item Value Reference Range Interpretation Comments Potassium Lvl (test code = Potassium 3.7 3.5-5.1 N Lvl) [facility] AllianceIzdzwafJNPTKTPFR7556-23-75 10:28:00 Test Item Value Reference Range Interpretation Comments Sodium Lvl (test code = Sodium Lvl) 137 135-145 N [facility] AllianceJqwbdumLQEZCWDNS2491-97-25 10:28:00 Test Item Value Reference Range Interpretation Comments Creatinine Lvl (test code = Creatinine 0.6 0.5-1.4 N Lvl) [facility] AllianceHiwubokNFBSJAUVC5337-87-44 10:28:00 Test Item Value Reference Range Interpretation Comments BUN (test code = BUN) 16 7-22 N [facility] AllianceAocuirzSQGZMXXVT4842-62-63 10:28:00 Test Item Value Reference Range Interpretation Comments Glucose Lvl (test code = Glucose Lvl) 200 [facility] AllianceZwlnwefCFFYIINYG2480-80-45 10:28:00 Test Item Value Reference Range Interpretation Comments Calcium Lvl (test code = Calcium Lvl) 8.3 8.5-10.5 L [facility] AllianceHzybjsqZAOKEMMWV8286-48-73 10:28:00 Test Item Value Reference Range Interpretation Comments AGAP (test code = AGAP) 19.7 10.0-20.0 N [facility] AllianceTxiuokgFZTYRXMJU1273-80-08 10:28:00 Test Item Value Reference Range Interpretation Comments Chloride Lvl (test code = Chloride Lvl) 99 95-109 N [facility] AllianceWlxjqubNIVSSUTYS8972-38-03 10:28:00 Test Item Value Reference Range Interpretation Comments CO2 (test code = CO2) 22 24-32 L [facility] HospitalWjfznjqFGWSZPMWUA5260-64-48 10:28:00 Test Item Value Reference Range Interpretation Comments Platelet (test code = Platelet) 172 133-450 N [facility] HospitalPvyypynRHKLEVJVGG9692-89-17 10:28:00 Test Item Value Reference Range Interpretation Comments MPV (test code = MPV) 12.0 7.4-10.4 H [facility] HospitalSupbytxVQEAJTPTBJ7855-16-22 10:28:00 Test Item Value Reference Range Interpretation Comments WBC (test code = WBC) 7.3 3.7-10.4 N [facility] HospitalLmwyeqxLFOMTWGQBN4817-25-39 10:28:00 Test Item Value Reference Range Interpretation Comments RDW (test code = RDW) 14.6 11.5-14.5 H [facility] HospitalMlphcyaHRRIIDQLFR6176-92-04 10:28:00 Test Item Value Reference Range Interpretation Comments MCHC (test code = MCHC) 35.0 32.0-36.0 N [facility] HospitalEzlvimkQHSEHEEVJL9069-86-74 10:28:00 Test Item Value Reference Range Interpretation Comments RBC (test code = RBC) 4.54 4.20-5.40 N [facility] HospitalTkfyzemMLIKAGWIZK6090-94-10 10:28:00 Test Item Value Reference Range Interpretation Comments Hct (test code = Hct) 37.6 36.0-48.0 N [facility] HospitalOhznoyqHZRSDZAQGK8121-97-98 10:28:00 Test Item Value Reference Range Interpretation Comments MCV (test code = MCV) 82.9 81.0-99.0 N [facility] HospitalVdlybgzCVUQHKXRVT3851-82-34 10:28:00 Test Item Value Reference Range Interpretation Comments MCH (test code = MCH) 29.0 pg 27.0-31.0 N [facility] HospitalNbxcywhDBWAQUMLOW5451-92-55 10:28:00 Test Item Value Reference Range Interpretation Comments Hgb (test code = Hgb) 13.2 12.0-16.0 N [facility] HospitalDewxxosBNLUCNRZRY6805-69-14 10:28:00 Test Item Value Reference Range Interpretation Comments Elliptocyte (test code = Slight A Elliptocyte) *ABN*(08/21/2011 04:28:00) [facility] HospitalKxboavaFHSFQPHSEN1367-12-67 10:28:00 Test Item Value Reference Range Interpretation Comments Polychrom (test code = Slight (08/21/2011 N Polychrom) 04:28:00) [facility] HospitalSqulyuuGZVQPBLTDR9209-08-87 10:28:00 Test Item Value Reference Range Interpretation Comments Basophils # (test code 0.0 See_Comment N [Aut omated message] The = Basophils #) system which generated this result tra nsmitted reference range : <=0.2. The reference r leo was not used to int erpret this result as normal/abnormal . [facility] HospitalHhqkiseVABZNQBYNP6663-03-28 10:28:00 Test Item Value Reference Range Interpretation Comments Hypochrom (test code = Slight (08/21/2011 N Hypochrom) 04:28:00) [facility] HospitalQqbxabtGFCDJQPZHN2172-90-58 10:28:00 Test Item Value Reference Range Interpretation Comments Monocytes # (test code 0.6 See_Comment N [Aut omated message] The = Monocytes #) system which generated this result tra nsmitted reference range : <=0.8. The reference r leo was not used to int erpret this result as normal/abnormal . [facility] HospitalMxuzzetNDQVFCKBEV8230-25-61 10:28:00 Test Item Value Reference Range Interpretation Comments Eosinophils # (test code 0.0 See_Comment N [A utomated message] The = Eosinophils #) system whic h generated this result tra nsmitted reference range : <=0.5. The reference r leo was not used to int erpret this result as normal/abnormal . [facility] HospitalRqvbeoqQHBMNQQDFH2476-24-05 10:28:00 Test Item Value Reference Range Interpretation Comments Segs-Bands # (test code = Segs-Bands #) 5.3 1.5-8.1 N [facility] HospitalEezykgoANGOPZAKWB2861-01-60 10:28:00 Test Item Value Reference Range Interpretation Comments Lymphocytes # (test code = Lymphocytes 1.3 1.0-5.5 N #) [facility] HospitalLcbcamaUVLTJFMLVX3616-85-59 10:28:00 Test Item Value Reference Range Interpretation Comments Basophils (test code = 0.5 See_Comment N [Aut omated message] The Basophils) system which ge nerated this result tra nsmitted reference range : <=1.0. The reference r leo was not used to int erpret this result as normal/abnormal . [facility] HospitalQhhfneuNISFAIEQBT9593-28-69 10:28:00 Test Item Value Reference Range Interpretation Comments Monocytes (test code = Monocytes) 8.5 2.0-12.0 N [facility] HospitalVmnthhgNVOPLQKYVG5766-11-81 10:28:00 Test Item Value Reference Range Interpretation Comments Eosinophils (test code = 0.3 See_Comment N [A utomated message] The Eosinophils) system which ge nerated this result tra nsmitted reference range : <=4.0. The reference r leo was not used to int erpret this result as normal/abnormal . [facility] HospitalUfauztcKECHBDQMXU8103-11-21 10:28:00 Test Item Value Reference Range Interpretation Comments Lymphocytes (test code = Lymphocytes) 17.3 20.0-40.0 L [facility] HospitalRctfzpxTMUHINRTEO7050-61-94 10:28:00 Test Item Value Reference Range Interpretation Comments Segs (test code = Segs) 73.4 45.0-75.0 N [facility] AllianceYyfsnwfDCJPDQFMK6614-98-50 10:28:00 Test Item Value Reference Range Interpretation Comments Phosphorus (test code = Phosphorus) 2.6 2.5-4.5 N [facility] AllianceAzblhojNKWXYHPDT7696-16-46 10:28:00 Test Item Value Reference Range Interpretation Comments Magnesium Lvl (test code = Magnesium 1.8 1.8-2.4 N Lvl) [facility] AllianceItlhzfeKUIZRCHSA1332-88-23 10:28:00 Test Item Value Reference Range Interpretation Comments Potassium Lvl (test code = Potassium 3.7 3.5-5.1 N Lvl) [facility] AllianceGbumbszTMXLOGIMW1068-71-96 10:28:00 Test Item Value Reference Range Interpretation Comments Sodium Lvl (test code = Sodium Lvl) 137 135-145 N [facility] AllianceAzbthzwVQVTWYYRY4167-74-26 10:28:00 Test Item Value Reference Range Interpretation Comments Creatinine Lvl (test code = Creatinine 0.6 0.5-1.4 N Lvl) [facility] AllianceHlvwzcuLSSXACIUC2873-16-16 10:28:00 Test Item Value Reference Range Interpretation Comments BUN (test code = BUN) 16 7-22 N [facility] AllianceRbetoqxDENDBRASA3136-92-87 10:28:00 Test Item Value Reference Range Interpretation Comments Glucose Lvl (test code = Glucose Lvl) 200 [facility] AllianceTtfhgxrSTBKAVAFQ0367-94-57 10:28:00 Test Item Value Reference Range Interpretation Comments Calcium Lvl (test code = Calcium Lvl) 8.3 8.5-10.5 L [facility] AllianceWucnogzXWVBEUAVC9228-36-06 10:28:00 Test Item Value Reference Range Interpretation Comments AGAP (test code = AGAP) 19.7 10.0-20.0 N [facility] AllianceVepnastPDNOMVTMG0310-54-35 10:28:00 Test Item Value Reference Range Interpretation Comments Chloride Lvl (test code = Chloride Lvl) 99 95-109 N [facility] AllianceDkzgrzmLBWGZDCJH2635-90-15 10:28:00 Test Item Value Reference Range Interpretation Comments CO2 (test code = CO2) 22 24-32 L [facility] HospitalVelneiqRDQZOVSRYH5675-56-01 10:28:00 Test Item Value Reference Range Interpretation Comments Platelet (test code = Platelet) 172 133-450 N [facility] HospitalFaadzyyHLLOIPTUGZ5102-19-54 10:28:00 Test Item Value Reference Range Interpretation Comments MPV (test code = MPV) 12.0 7.4-10.4 H [facility] HospitalFvvfutwZZEWYWALEV4549-17-42 10:28:00 Test Item Value Reference Range Interpretation Comments WBC (test code = WBC) 7.3 3.7-10.4 N [facility] HospitalRfgxpayWCWXPPAHES7221-78-03 10:28:00 Test Item Value Reference Range Interpretation Comments RDW (test code = RDW) 14.6 11.5-14.5 H [facility] HospitalTmvclbzYRBMITSVGO8854-06-59 10:28:00 Test Item Value Reference Range Interpretation Comments MCHC (test code = MCHC) 35.0 32.0-36.0 N [facility] HospitalDcxgdbkCFJFUCEJCK5213-64-80 10:28:00 Test Item Value Reference Range Interpretation Comments RBC (test code = RBC) 4.54 4.20-5.40 N [facility] HospitalPgnxdfhRVAHRPNZCL5935-05-80 10:28:00 Test Item Value Reference Range Interpretation Comments Hct (test code = Hct) 37.6 36.0-48.0 N [facility] HospitalEbpkkvpUJZWFSUVHS0194-39-08 10:28:00 Test Item Value Reference Range Interpretation Comments MCV (test code = MCV) 82.9 81.0-99.0 N [facility] HospitalPdsjlwhWPELLOPVIV7726-39-69 10:28:00 Test Item Value Reference Range Interpretation Comments MCH (test code = MCH) 29.0 pg 27.0-31.0 N [facility] HospitalHuegfimGNPNTUYTUG2359-24-40 10:28:00 Test Item Value Reference Range Interpretation Comments Hgb (test code = Hgb) 13.2 12.0-16.0 N [facility] HospitalYzbnxptFHVHLAFTUF5331-76-63 10:28:00 Test Item Value Reference Range Interpretation Comments Elliptocyte (test code = Slight A Elliptocyte) *ABN*(08/21/2011 04:28:00) [facility] HospitalEbtmqqdYBBNFGSMMO5828-75-65 10:28:00 Test Item Value Reference Range Interpretation Comments Polychrom (test code = Slight (08/21/2011 N Polychrom) 04:28:00) [facility] HospitalLdmkgmtYIPVVFZOVC1569-48-94 10:28:00 Test Item Value Reference Range Interpretation Comments Basophils # (test code 0.0 See_Comment N [Aut omated message] The = Basophils #) system which generated this result tra nsmitted reference range : <=0.2. The reference r leo was not used to int erpret this result as normal/abnormal . [facility] HospitalYoiyzcnDRBRDJABRL5431-09-26 10:28:00 Test Item Value Reference Range Interpretation Comments Hypochrom (test code = Slight (08/21/2011 N Hypochrom) 04:28:00) [facility] HospitalLwxeyyhRDGGSKVBKU6883-03-46 10:28:00 Test Item Value Reference Range Interpretation Comments Monocytes # (test code 0.6 See_Comment N [Aut omated message] The = Monocytes #) system which generated this result tra nsmitted reference range : <=0.8. The reference r leo was not used to int erpret this result as normal/abnormal . [facility] HospitalOcjcjymTLNTLTDVTW0406-18-52 10:28:00 Test Item Value Reference Range Interpretation Comments Eosinophils # (test code 0.0 See_Comment N [A utomated message] The = Eosinophils #) system whic h generated this result tra nsmitted reference range : <=0.5. The reference r leo was not used to int erpret this result as normal/abnormal . [facility] HospitalHlqcwclIWOIWWSSMT6008-07-81 10:28:00 Test Item Value Reference Range Interpretation Comments Segs-Bands # (test code = Segs-Bands #) 5.3 1.5-8.1 N [facility] HospitalTbcvfibSXYACMARND2929-63-05 10:28:00 Test Item Value Reference Range Interpretation Comments Lymphocytes # (test code = Lymphocytes 1.3 1.0-5.5 N #) [facility] HospitalDagdfeaAASERVSHSY5158-28-09 10:28:00 Test Item Value Reference Range Interpretation Comments Basophils (test code = 0.5 See_Comment N [Aut omated message] The Basophils) system which ge nerated this result tra nsmitted reference range : <=1.0. The reference r leo was not used to int erpret this result as normal/abnormal . [facility] HospitalDhnkfhwGBMZHTEBSG4085-85-23 10:28:00 Test Item Value Reference Range Interpretation Comments Monocytes (test code = Monocytes) 8.5 2.0-12.0 N [facility] HospitalQowhqjtMDRDDYHRTQ6384-40-14 10:28:00 Test Item Value Reference Range Interpretation Comments Eosinophils (test code = 0.3 See_Comment N [A utomated message] The Eosinophils) system which ge nerated this result tra nsmitted reference range : <=4.0. The reference r leo was not used to int erpret this result as normal/abnormal . [facility] HospitalHgvfqdpJAHNAOCYJC6971-89-25 10:28:00 Test Item Value Reference Range Interpretation Comments Lymphocytes (test code = Lymphocytes) 17.3 20.0-40.0 L [facility] HospitalDmngyzfLCUXJUMRFN7978-37-12 10:28:00 Test Item Value Reference Range Interpretation Comments Segs (test code = Segs) 73.4 45.0-75.0 N [facility] AllianceGliaywdVBKLAFQDJ9600-19-87 10:28:00 Test Item Value Reference Range Interpretation Comments Phosphorus (test code = Phosphorus) 2.6 2.5-4.5 N [facility] AllianceXloetjeMNSSOHBEW3081-02-38 10:28:00 Test Item Value Reference Range Interpretation Comments Magnesium Lvl (test code = Magnesium 1.8 1.8-2.4 N Lvl) [facility] AllianceGxpkrpcMNKIUMBQT9724-08-26 10:28:00 Test Item Value Reference Range Interpretation Comments Potassium Lvl (test code = Potassium 3.7 3.5-5.1 N Lvl) [facility] AllianceYwshirePFDFCJUWT8407-25-74 10:28:00 Test Item Value Reference Range Interpretation Comments Sodium Lvl (test code = Sodium Lvl) 137 135-145 N [facility] AllianceGtmymbfDAAOUFWAK7151-74-51 10:28:00 Test Item Value Reference Range Interpretation Comments Creatinine Lvl (test code = Creatinine 0.6 0.5-1.4 N Lvl) [facility] AllianceQukueasMSGPJPAKK0763-30-81 10:28:00 Test Item Value Reference Range Interpretation Comments BUN (test code = BUN) 16 7-22 N [facility] AllianceLalzhsaIUCLFATSD7238-53-55 10:28:00 Test Item Value Reference Range Interpretation Comments Glucose Lvl (test code = Glucose Lvl) 200 [facility] AllianceQtipbodKPLUOOUVT9525-82-95 10:28:00 Test Item Value Reference Range Interpretation Comments Calcium Lvl (test code = Calcium Lvl) 8.3 8.5-10.5 L [facility] AllianceRnkgmboSDLEQWURR0019-07-26 10:28:00 Test Item Value Reference Range Interpretation Comments AGAP (test code = AGAP) 19.7 10.0-20.0 N [facility] AllianceBzeobrxDVTFGMTKX5172-87-24 10:28:00 Test Item Value Reference Range Interpretation Comments Chloride Lvl (test code = Chloride Lvl) 99 95-109 N [facility] AllianceYrgsstkVGYWPHZTR8190-11-93 10:28:00 Test Item Value Reference Range Interpretation Comments CO2 (test code = CO2) 22 24-32 L [facility] HospitalXqpvoscZYYQWYBSKI8122-98-94 10:28:00 Test Item Value Reference Range Interpretation Comments Platelet (test code = Platelet) 172 133-450 N [facility] HospitalNommidrZOOEMIOMBG4079-81-51 10:28:00 Test Item Value Reference Range Interpretation Comments MPV (test code = MPV) 12.0 7.4-10.4 H [facility] HospitalAbrurmdBKOMLLGIVX3869-52-09 10:28:00 Test Item Value Reference Range Interpretation Comments WBC (test code = WBC) 7.3 3.7-10.4 N [facility] HospitalLslohwdQOYXADCBQK0514-95-13 10:28:00 Test Item Value Reference Range Interpretation Comments RDW (test code = RDW) 14.6 11.5-14.5 H [facility] HospitalXagsrotQFJQLVVMBL7001-02-50 10:28:00 Test Item Value Reference Range Interpretation Comments MCHC (test code = MCHC) 35.0 32.0-36.0 N [facility] HospitalBjfioplSSALCZOYGJ5926-85-11 10:28:00 Test Item Value Reference Range Interpretation Comments RBC (test code = RBC) 4.54 4.20-5.40 N [facility] HospitalZpqzalfBTPWLGOHSW1444-38-78 10:28:00 Test Item Value Reference Range Interpretation Comments Hct (test code = Hct) 37.6 36.0-48.0 N [facility] HospitalKtxxtshPAIAVFLDGX9341-08-78 10:28:00 Test Item Value Reference Range Interpretation Comments MCV (test code = MCV) 82.9 81.0-99.0 N [facility] HospitalQhtpxwpRHMECYHVEI0329-93-04 10:28:00 Test Item Value Reference Range Interpretation Comments MCH (test code = MCH) 29.0 pg 27.0-31.0 N [facility] HospitalLhjzitfPJJLSLQIYT3004-48-59 10:28:00 Test Item Value Reference Range Interpretation Comments Hgb (test code = Hgb) 13.2 12.0-16.0 N [facility] HospitalIxrvzzaWFALXAKOUA2936-24-50 10:28:00 Test Item Value Reference Range Interpretation Comments Elliptocyte (test code = Slight A Elliptocyte) *ABN*(08/21/2011 04:28:00) [facility] HospitalGsybncvYAVDEUNSOQ5145-18-19 10:28:00 Test Item Value Reference Range Interpretation Comments Polychrom (test code = Slight (08/21/2011 N Polychrom) 04:28:00) [facility] HospitalNywohmqZHUXPDUGDE5508-03-07 10:28:00 Test Item Value Reference Range Interpretation Comments Basophils # (test code 0.0 See_Comment N [Aut omated message] The = Basophils #) system which generated this result tra nsmitted reference range : <=0.2. The reference r leo was not used to int erpret this result as normal/abnormal . [facility] HospitalPrrcvtdUTNGNGNCXB9556-51-12 10:28:00 Test Item Value Reference Range Interpretation Comments Hypochrom (test code = Slight (08/21/2011 N Hypochrom) 04:28:00) [facility] HospitalDaqwrzpHLVJGIKPTT7114-18-88 10:28:00 Test Item Value Reference Range Interpretation Comments Monocytes # (test code 0.6 See_Comment N [Aut omated message] The = Monocytes #) system which generated this result tra nsmitted reference range : <=0.8. The reference r leo was not used to int erpret this result as normal/abnormal . [facility] HospitalUkrcxapIKCGWLSBFK0446-30-60 10:28:00 Test Item Value Reference Range Interpretation Comments Eosinophils # (test code 0.0 See_Comment N [A utomated message] The = Eosinophils #) system wh h generated this result tra nsmitted reference range : <=0.5. The reference r leo was not used to int erpret this result as normal/abnormal . [facility] HospitalYrbegogBNTYNVVRJW8790-87-26 10:28:00 Test Item Value Reference Range Interpretation Comments Segs-Bands # (test code = Segs-Bands #) 5.3 1.5-8.1 N [facility] HospitalJohizkfFZYZKUOJKD6795-88-39 10:28:00 Test Item Value Reference Range Interpretation Comments Lymphocytes # (test code = Lymphocytes 1.3 1.0-5.5 N #) [facility] HospitalDgwtvzsZMEEFKNFAD4840-89-41 10:28:00 Test Item Value Reference Range Interpretation Comments Basophils (test code = 0.5 See_Comment N [Aut omated message] The Basophils) system which ge nerated this result tra nsmitted reference range : <=1.0. The reference r leo was not used to int erpret this result as normal/abnormal . [facility] HospitalPzqhnhwKBMXQITBMB1107-32-01 10:28:00 Test Item Value Reference Range Interpretation Comments Monocytes (test code = Monocytes) 8.5 2.0-12.0 N [facility] HospitalNtxshisHWMXPCMVHV8379-68-88 10:28:00 Test Item Value Reference Range Interpretation Comments Eosinophils (test code = 0.3 See_Comment N [A utomated message] The Eosinophils) system which ge nerated this result tra nsmitted reference range : <=4.0. The reference r leo was not used to int erpret this result as normal/abnormal . [facility] HospitalZofwickTADXXPSJUK6100-98-01 10:28:00 Test Item Value Reference Range Interpretation Comments Lymphocytes (test code = Lymphocytes) 17.3 20.0-40.0 L [facility] HospitalUmkiygkKOTAXAOBIT0722-41-85 10:28:00 Test Item Value Reference Range Interpretation Comments Segs (test code = Segs) 73.4 45.0-75.0 N [facility] AllianceJchtauwYJXULLLYP0392-71-03 10:28:00 Test Item Value Reference Range Interpretation Comments Phosphorus (test code = Phosphorus) 2.6 2.5-4.5 N [facility] AllianceQjphpzbCNPABHTBP0020-04-38 10:28:00 Test Item Value Reference Range Interpretation Comments Magnesium Lvl (test code = Magnesium 1.8 1.8-2.4 N Lvl) [facility] AllianceSckahwyJLBSVKVOQ5409-96-30 10:28:00 Test Item Value Reference Range Interpretation Comments Potassium Lvl (test code = Potassium 3.7 3.5-5.1 N Lvl) [facility] AllianceBwafjntOIIBNDZVZ3100-15-54 10:28:00 Test Item Value Reference Range Interpretation Comments Sodium Lvl (test code = Sodium Lvl) 137 135-145 N [place] [facility] AllianceEmjmdzeWORRDSDAQ3016-38-35 10:28:00 Test Item Value Reference Range Interpretation Comments Creatinine Lvl (test code = Creatinine 0.6 0.5-1.4 N Lvl) [facility] AllianceGxlsfyhMSLQFHMCR5897-42-10 10:28:00 Test Item Value Reference Range Interpretation Comments BUN (test code = BUN) 16 7-22 N [facility] AllianceClpdhsvBRTRCIABU1661-83-87 10:28:00 Test Item Value Reference Range Interpretation Comments Glucose Lvl (test code = Glucose Lvl) 200 [facility] AllianceMpvrqmzWDETWEOQZ5560-11-68 10:28:00 Test Item Value Reference Range Interpretation Comments Calcium Lvl (test code = Calcium Lvl) 8.3 8.5-10.5 L [facility] AllianceYqekkclKOHBDXHKF9529-20-48 10:28:00 Test Item Value Reference Range Interpretation Comments AGAP (test code = AGAP) 19.7 10.0-20.0 N [facility] AllianceXtxjnkdHKJVQHOKN9815-61-04 10:28:00 Test Item Value Reference Range Interpretation Comments Chloride Lvl (test code = Chloride Lvl) 99 95-109 N [facility] AllianceJgjskpzCAOLRNTMW9796-45-01 10:28:00 Test Item Value Reference Range Interpretation Comments CO2 (test code = CO2) 22 24-32 L [facility]DzfjoswNGJUUSBLEQ0627-28-02 10:28:00 Test Item Value Reference Range Interpretation Comments Platelet (test code = Platelet) 172 133-450 N [facility] HospitalSqeqdwqFNDQFEAATC5585-78-44 10:28:00 Test Item Value Reference Range Interpretation Comments MPV (test code = MPV) 12.0 7.4-10.4 H [facility] HospitalCaiisteSBLUNJRFUU9591-23-05 10:28:00 Test Item Value Reference Range Interpretation Comments WBC (test code = WBC) 7.3 3.7-10.4 N [facility] HospitalUvoguigHRXVFTZITP4711-03-20 10:28:00 Test Item Value Reference Range Interpretation Comments RDW (test code = RDW) 14.6 11.5-14.5 H [facility] HospitalXjblkgbNTLQFVEFTP1887-60-08 10:28:00 Test Item Value Reference Range Interpretation Comments MCHC (test code = MCHC) 35.0 32.0-36.0 N [facility] HospitalCdgxrwoKMAVFAULMF4331-91-37 10:28:00 Test Item Value Reference Range Interpretation Comments RBC (test code = RBC) 4.54 4.20-5.40 N [facility] HospitalKhobcebHVEJVOONTX9506-42-38 10:28:00 Test Item Value Reference Range Interpretation Comments Hct (test code = Hct) 37.6 36.0-48.0 N [facility] HospitalYqzzdlvMNNXVFJDZP9981-91-05 10:28:00 Test Item Value Reference Range Interpretation Comments MCV (test code = MCV) 82.9 81.0-99.0 N [facility] HospitalGvpshjrFFMXEXZZRY3219-54-71 10:28:00 Test Item Value Reference Range Interpretation Comments MCH (test code = MCH) 29.0 pg 27.0-31.0 N [facility] HospitalWsewwifJPMCUQHJYQ6305-28-51 10:28:00 Test Item Value Reference Range Interpretation Comments Hgb (test code = Hgb) 13.2 12.0-16.0 N [facility] HospitalLjhhldwILEDKKCFIU8949-00-21 10:28:00 Test Item Value Reference Range Interpretation Comments Elliptocyte (test code = Slight A Elliptocyte) *ABN*(08/21/2011 04:28:00) [facility] HospitalAwcekjkKEOXBQOWFA1579-90-88 10:28:00 Test Item Value Reference Range Interpretation Comments Polychrom (test code = Slight (08/21/2011 N Polychrom) 04:28:00) [facility] HospitalSmwmmqmBATEBWWSFA2727-70-87 10:28:00 Test Item Value Reference Range Interpretation Comments Basophils # (test code 0.0 See_Comment N [Aut omated message] The = Basophils #) system which generated this result tra nsmitted reference range : <=0.2. The reference r leo was not used to int erpret this result as normal/abnormal . [facility] HospitalXuuvlkvXHQVEVITGQ0354-10-15 10:28:00 Test Item Value Reference Range Interpretation Comments Hypochrom (test code = Slight (08/21/2011 N Hypochrom) 04:28:00) [facility] HospitalWyuqjrpPJHAAKKEKM5210-74-58 10:28:00 Test Item Value Reference Range Interpretation Comments Monocytes # (test code 0.6 See_Comment N [Aut omated message] The = Monocytes #) system which generated this result tra nsmitted reference range : <=0.8. The reference r leo was not used to int erpret this result as normal/abnormal . [facility] HospitalQxfilzjASFJUDATRG9470-05-50 10:28:00 Test Item Value Reference Range Interpretation Comments Eosinophils # (test code 0.0 See_Comment N [A utomated message] The = Eosinophils #) system whic h generated this result tra nsmitted reference range : <=0.5. The reference r leo was not used to int erpret this result as normal/abnormal . [facility] HospitalDqsinyrVVJHQKFOBE7718-98-23 10:28:00 Test Item Value Reference Range Interpretation Comments Segs-Bands # (test code = Segs-Bands #) 5.3 1.5-8.1 N [facility] HospitalFemetzcSZHHDJSICI1134-30-78 10:28:00 Test Item Value Reference Range Interpretation Comments Lymphocytes # (test code = Lymphocytes 1.3 1.0-5.5 N #) [facility] HospitalYynxisiBYLGMQRHBV0289-54-21 10:28:00 Test Item Value Reference Range Interpretation Comments Basophils (test code = 0.5 See_Comment N [Aut omated message] The Basophils) system which ge nerated this result tra nsmitted reference range : <=1.0. The reference r leo was not used to int erpret this result as normal/abnormal . [facility] HospitalKdrvydhLSYPLXKGOO7062-33-03 10:28:00 Test Item Value Reference Range Interpretation Comments Monocytes (test code = Monocytes) 8.5 2.0-12.0 N [facility] HospitalXmmeuwtHNECYHUIVM9822-56-94 10:28:00 Test Item Value Reference Range Interpretation Comments Eosinophils (test code = 0.3 See_Comment N [A utomated message] The Eosinophils) system which ge nerated this result tra nsmitted reference range : <=4.0. The reference r leo was not used to int erpret this result as normal/abnormal . [facility] HospitalWpochncZYZQYKMJSX0944-27-97 10:28:00 Test Item Value Reference Range Interpretation Comments Lymphocytes (test code = Lymphocytes) 17.3 20.0-40.0 L [facility] HospitalVeuupuyVVUYFEBWEC7722-51-91 10:28:00 Test Item Value Reference Range Interpretation Comments Segs (test code = Segs) 73.4 45.0-75.0 N [facility] AllianceAxixlhbJPCFJXZCR2746-29-28 10:28:00 Test Item Value Reference Range Interpretation Comments Phosphorus (test code = Phosphorus) 2.6 2.5-4.5 N [facility] AllianceNouhcqxBSGCUACPE5281-84-06 10:28:00 Test Item Value Reference Range Interpretation Comments Magnesium Lvl (test code = Magnesium 1.8 1.8-2.4 N Lvl) [facility] AllianceVvyqwmxBFDADBBSB3239-92-02 10:28:00 Test Item Value Reference Range Interpretation Comments Potassium Lvl (test code = Potassium 3.7 3.5-5.1 N Lvl) [facility] AllianceIbvijfqQLBBSLMGC6509-12-22 10:28:00 Test Item Value Reference Range Interpretation Comments Sodium Lvl (test code = Sodium Lvl) 137 135-145 N [facility] AllianceOngcgdvXHSUPMTZN2282-46-97 10:28:00 Test Item Value Reference Range Interpretation Comments Creatinine Lvl (test code = Creatinine 0.6 0.5-1.4 N Lvl) [facility] AllianceDlpybdnGCDKCMVLE4259-11-00 10:28:00 Test Item Value Reference Range Interpretation Comments BUN (test code = BUN) 16 7-22 N [facility] AllianceDefxuzwYTAUNGNLG0273-56-42 10:28:00 Test Item Value Reference Range Interpretation Comments Glucose Lvl (test code = Glucose Lvl) 200 [facility] AllianceKpzibpdVLZTEUIZU3772-83-35 10:28:00 Test Item Value Reference Range Interpretation Comments Calcium Lvl (test code = Calcium Lvl) 8.3 8.5-10.5 L [facility] AllianceXagscobAHBYUZOVW5268-92-30 10:28:00 Test Item Value Reference Range Interpretation Comments AGAP (test code = AGAP) 19.7 10.0-20.0 N [facility] AllianceZxzmzihYFFFTXVIV2533-99-60 10:28:00 Test Item Value Reference Range Interpretation Comments Chloride Lvl (test code = Chloride Lvl) 99 95-109 N [facility] AllianceTqqulnnMOQOEAGSZ7052-80-38 10:28:00 Test Item Value Reference Range Interpretation Comments CO2 (test code = CO2) 22 24-32 L [facility] HospitalHqxokqcLDUYPITPWP2312-32-57 10:28:00 Test Item Value Reference Range Interpretation Comments Platelet (test code = Platelet) 172 133-450 N [facility] HospitalHjzkcxaNFBXBYLRRA4957-00-45 10:28:00 Test Item Value Reference Range Interpretation Comments MPV (test code = MPV) 12.0 7.4-10.4 H [facility] HospitalVqmyykdGZNKJAUBIR8079-35-15 10:28:00 Test Item Value Reference Range Interpretation Comments WBC (test code = WBC) 7.3 3.7-10.4 N [facility] HospitalOedomzvRIBECCFWJP5363-07-62 10:28:00 Test Item Value Reference Range Interpretation Comments RDW (test code = RDW) 14.6 11.5-14.5 H [facility] HospitalIxqaotnYJJKETMNNJ9305-59-45 10:28:00 Test Item Value Reference Range Interpretation Comments MCHC (test code = MCHC) 35.0 32.0-36.0 N [facility] HospitalDtdldlkKAQLIXSUHY0910-05-29 10:28:00 Test Item Value Reference Range Interpretation Comments RBC (test code = RBC) 4.54 4.20-5.40 N [facility] HospitalIrtufaqRIYQYUOPFN1412-25-60 10:28:00 Test Item Value Reference Range Interpretation Comments Hct (test code = Hct) 37.6 36.0-48.0 N [facility] HospitalXfuwoktJBQHECBOIV6460-89-60 10:28:00 Test Item Value Reference Range Interpretation Comments MCV (test code = MCV) 82.9 81.0-99.0 N [facility] HospitalVxoozdmJINJSULJRH9909-98-92 10:28:00 Test Item Value Reference Range Interpretation Comments MCH (test code = MCH) 29.0 pg 27.0-31.0 N [facility] HospitalIlwnzfvCJEISHOZQI3966-69-03 10:28:00 Test Item Value Reference Range Interpretation Comments Hgb (test code = Hgb) 13.2 12.0-16.0 N [facility] HospitalVyvbszsWCGNURDUNG1209-64-57 10:28:00 Test Item Value Reference Range Interpretation Comments Elliptocyte (test code = Slight A Elliptocyte) *ABN*(08/21/2011 04:28:00) [facility] HospitalTgpkrapSBODYCHCZD7293-25-46 10:28:00 Test Item Value Reference Range Interpretation Comments Polychrom (test code = Slight (08/21/2011 N Polychrom) 04:28:00) [facility] HospitalCssefdaDQNARKLHNH9477-24-99 10:28:00 Test Item Value Reference Range Interpretation Comments Basophils # (test code 0.0 See_Comment N [Aut omated message] The = Basophils #) system which generated this result tra nsmitted reference range : <=0.2. The reference r leo was not used to int erpret this result as normal/abnormal . [facility] HospitalGlfzqjhNXGIDTUPHF0186-80-87 10:28:00 Test Item Value Reference Range Interpretation Comments Hypochrom (test code = Slight (08/21/2011 N Hypochrom) 04:28:00) [facility] HospitalZyiavghSGWRNVHRNQ7398-88-73 10:28:00 Test Item Value Reference Range Interpretation Comments Monocytes # (test code 0.6 See_Comment N [Aut omated message] The = Monocytes #) system which generated this result tra nsmitted reference range : <=0.8. The reference r leo was not used to int erpret this result as normal/abnormal . [facility] HospitalWnzriwlOCUVQUTXKD3333-46-14 10:28:00 Test Item Value Reference Range Interpretation Comments Eosinophils # (test code 0.0 See_Comment N [A utomated message] The = Eosinophils #) system whic h generated this result tra nsmitted reference range : <=0.5. The reference r leo was not used to int erpret this result as normal/abnormal . [facility] HospitalOlcueamAXKXNZJVBP6093-74-35 10:28:00 Test Item Value Reference Range Interpretation Comments Segs-Bands # (test code = Segs-Bands #) 5.3 1.5-8.1 N [facility] HospitalOaxojlgBBJPAEMIWV6328-37-11 10:28:00 Test Item Value Reference Range Interpretation Comments Lymphocytes # (test code = Lymphocytes 1.3 1.0-5.5 N #) [facility] HospitalBpqbanzTBJHINSNGF6901-22-44 10:28:00 Test Item Value Reference Range Interpretation Comments Basophils (test code = 0.5 See_Comment N [Aut omated message] The Basophils) system which ge nerated this result tra nsmitted reference range : <=1.0. The reference r leo was not used to int erpret this result as normal/abnormal . [facility] HospitalAgzqqhzDPEZAZCVTD4836-22-09 10:28:00 Test Item Value Reference Range Interpretation Comments Monocytes (test code = Monocytes) 8.5 2.0-12.0 N [facility] HospitalKjytcgoZOZVPUTALU7064-83-81 10:28:00 Test Item Value Reference Range Interpretation Comments Eosinophils (test code = 0.3 See_Comment N [A utomated message] The Eosinophils) system which ge nerated this result tra nsmitted reference range : <=4.0. The reference r leo was not used to int erpret this result as normal/abnormal . [facility] HospitalMsksjkgHKDZWWBHRA0606-51-14 10:28:00 Test Item Value Reference Range Interpretation Comments Lymphocytes (test code = Lymphocytes) 17.3 20.0-40.0 L [facility]MheitltQMDRUEYBFM1286-12-33 10:28:00 Test Item Value Reference Range Interpretation Comments Segs (test code = Segs) 73.4 45.0-75.0 N [facility] GLUCOSE PEHKXNM5652-71-89 07:47:00 Test Item Value Reference Range Interpretation Comments Comment2 (test code = Comment2) Verify w/Lab [facility] GLUCOSE HHAEMED0601-44-01 07:47:00 Test Item Value Reference Range Interpretation Comments Comment2 (test code = Comment2) Verify w/Lab [facility] GLUCOSE GKLCOKQ9307-36-01 07:47:00 Test Item Value Reference Range Interpretation Comments Comment2 (test code = Comment2) Verify w/Lab [facility] GLUCOSE TPPCAZP6637-99-48 07:47:00 Test Item Value Reference Range Interpretation Comments Comment2 (test code = Comment2) Verify w/Lab [facility] GLUCOSE UQVCWPJ9278-31-37 07:47:00 Test Item Value Reference Range Interpretation Comments Comment2 (test code = Comment2) [facility]TwdkvicPTVLQPAVE9442-98-95 21:58:00 Test Item Value Reference Range Interpretation Comments S Preg (test code = S Negative (08/19/2011 N Preg) 15:58:00) [facility] AllianceOdkmnkvNJGXUXAWJ0547-96-02 21:58:00 Test Item Value Reference Range Interpretation Comments Lipase Lvl (test code = Lipase Lvl) 169 73-393 N [facility] AllianceJotcgkyULRAJMMKO9898-99-74 21:58:00 Test Item Value Reference Range Interpretation Comments ALT (test code = ALT) 54 See_Comment N [Auto mated message] The system which ge nerated this result transmit rohit reference range : <=65. The reference range was not used to interpr et this result as reji l/abnormal. [facility]aleVnzvuuoFWGPYLJCV8694-50-47 21:58:00 Test Item Value Reference Range Interpretation Comments Alk Phos (test code = Alk Phos) 110 39-136 N [facility] AllianceVgwlgrjVCGGMCBWK8954-26-69 21:58:00 Test Item Value Reference Range Interpretation Comments Bili Direct (test code 0.1 See_Comment N [Aut omated message] The = Bili Direct) system which generated this result tra nsmitted reference range : <=0.3. The reference r leo was not used to int erpret this result as reji l/abnormal. [facility] AllianceFoopulePMQTXRHYK9341-42-30 21:58:00 Test Item Value Reference Range Interpretation Comments Bili Total (test code = Bili Total) 0.9 0.2-1.3 N [facility] AllianceRmettlrRFMRDURVB5579-41-09 21:58:00 Test Item Value Reference Range Interpretation Comments Albumin Lvl (test code = Albumin Lvl) 4.4 3.5-5.0 N [facility] AllianceWustwygTQJUSPUKE0351-76-25 21:58:00 Test Item Value Reference Range Interpretation Comments Total Protein (test code = Total 8.8 6.4-8.4 H Protein) [facility] AllianceElurjyxXOEAIWTDZ4444-08-12 21:58:00 Test Item Value Reference Range Interpretation Comments Bili Indirect (test 0.8 See_Comment N [Automa rohit message] The code = Bili Indirect) system which generated this result tra nsmitted reference range : <=1.0. The reference r leo was not used to int erpret this result as normal/abnormal . [facility] AllianceBtnlvdxLRWUMFXPW9000-77-28 21:58:00 Test Item Value Reference Range Interpretation Comments AST (test code = AST) 36 See_Comment N [Auto mated message] The system which ge nerated this result transmit rohit reference range : <=37. The reference range was not used to interpr et this result as reji l/abnormal. [facility] AllianceClxuhsyVGLIJDRLW1101-56-43 21:58:00 Test Item Value Reference Range Interpretation Comments Globulin (test code = Globulin) 4.4 2.0-4.0 H [facility] AllianceHvmlichKGKPASYRQ5685-78-61 21:58:00 Test Item Value Reference Range Interpretation Comments A/G Ratio (test code = A/G Ratio) 1.0 0.7-1.6 N [facility]aleCuyvyghNXFRJJXYUU7519-10-96 21:58:00 Test Item Value Reference Range Interpretation Comments UA Bacteria (test code Occasional /HPF N = UA Bacteria) (08/19/2011 15:58:00) [facility]aleXsivzlqVPWOAFFDUC5769-01-11 21:58:00 Test Item Value Reference Range Interpretation Comments UA RBC (test 3-5 /HPF See_Comment A [Automated mes pastor] code = UA RBC) *ABN*(08/19/2011 The syste m which 15:58:00) generated this result transmitted ref erence range: <=2. The reference range was not used to int erpret this result as normal/abnormal . [facility]ZcwbjojXMIRGSMCPF1037-39-64 21:58:00 Test Item Value Reference Range Interpretation Comments UA WBC (test code = 3 See_Comment [Automa rohit message] The UA WBC) system which ge nerated this result transmit rohit reference range : <=5. The reference range was not used to interpr et this result as reji l/abnormal. [facility]aleYewxqqoEPSHOEPOAQ2509-80-46 21:58:00 Test Item Value Reference Range Interpretation Comments UA Mucus (test code = Few /LPF (08/19/2011 N UA Mucus) 15:58:00) [facility] AllenMnmtixxMQCCEWSLRM1927-76-29 21:58:00 Test Item Value Reference Range Interpretation Comments UA Amorph Destiny (test Occasional /HPF A code = UA Amorph *ABN*(08/19/2011 Destiny) 15:58:00) [facility] AllenJgkfwuyYJCEKXZGGK9769-27-68 21:58:00 Test Item Value Reference Range Interpretation Comments UA Urobilinogen (test code = UA 0.2 0.1-1.0 N Urobilinogen) [facility] AllenVbqwiuaJVTALHOUCO0230-84-63 21:58:00 Test Item Value Reference Range Interpretation Comments UA Sq Epi (test code = Rare /LPF (08/19/2011 N UA Sq Epi) 15:58:00) [facility] AllenFuvugtsIDHLVETJVE6982-47-87 21:58:00 Test Item Value Reference Range Interpretation Comments Micro? (test code = Performed (08/19/2011 N Micro?) 15:58:00) [facility]aleNopsercUAXGCRNKYD7180-14-11 21:58:00 Test Item Value Reference Range Interpretation Comments UA Leuk Est (test Negative (08/19/2011 N code = UA Leuk Est) 15:58:00) [facility] AllenIeivjirTAEEVRCRHP6311-60-54 21:58:00 Test Item Value Reference Range Interpretation Comments UA Nitrite (test code Negative (08/19/2011 N = UA Nitrite) 15:58:00) [facility]aleCnfrqvwLSFGGFAFVK3333-00-34 21:58:00 Test Item Value Reference Range Interpretation Comments UA pH (test code = UA pH) 5.5 1 5.0-8.0 N [facility] AllenLgodzqgAZTOFXREDP2729-00-95 21:58:00 Test Item Value Reference Range Interpretation Comments UA Blood (test code = Trace *ABN*(08/19/2011 A UA Blood) 15:58:00) [facility] AllenWacbdjuOCATGIBLEP3963-48-74 21:58:00 Test Item Value Reference Range Interpretation Comments UA Bili (test code = Negative (08/19/2011 N UA Bili) 15:58:00) [facility] AllenYmdsluxBACQSMGVAG2565-57-13 21:58:00 Test Item Value Reference Range Interpretation Comments UA Ketones (test code = 80 mg/dL A UA Ketones) *ABN*(08/19/2011 15:58:00) [facility]NzpqtuyJOKVLSEOUU4560-84-39 21:58:00 Test Item Value Reference Range Interpretation Comments UA Glucose (test code = >=1000 mg/dL A UA Glucose) *ABN*(08/19/2011 15:58:00) [facility]MtwoqqhXKCKFBZIGZ9583-25-14 21:58:00 Test Item Value Reference Range Interpretation Comments UA Protein (test code Negative (08/19/2011 N = UA Protein) 15:58:00) [facility] AllenDtfrdtpEJEVGMWFLY5543-22-15 21:58:00 Test Item Value Reference Range Interpretation Comments UA Turbidity (test code Slight Cloudy N = UA Turbidity) (08/19/2011 15:58:00) [facility]aGgprlwsHRUKUIQOQH0334-84-18 21:58:00 Test Item Value Reference Range Interpretation Comments UA Spec Grav (test code = UA Spec 1.025 1 Grav) [facility]WkrqdygJAJZYAKUQG3778-09-11 21:58:00 Test Item Value Reference Range Interpretation Comments UA Color (test code = Yellow (08/19/2011 N UA Color) 15:58:00) [facility] AllianceFohtuzvFXYRMRMPK3209-17-12 21:58:00 Test Item Value Reference Range Interpretation Comments S Preg (test code = S Negative (08/19/2011 N Preg) 15:58:00) [facility] AllianceQisrllgSNBXPOMVD3264-06-74 21:58:00 Test Item Value Reference Range Interpretation Comments Lipase Lvl (test code = Lipase Lvl) 169 73-393 N [facility] AllianceKlttxiwLKLTHVXTD0120-81-38 21:58:00 Test Item Value Reference Range Interpretation Comments ALT (test code = ALT) 54 See_Comment N [Auto mated message] The system which ge nerated this result transmit rohit reference range : <=65. The reference range was not used to interpr et this result as reji l/abnormal. [facility] AllianceMfjowgmWOEAYGUFB1540-79-76 21:58:00 Test Item Value Reference Range Interpretation Comments Alk Phos (test code = Alk Phos) 110 39-136 N [facility] AllianceQjtwhywZMTZIUIFC2513-37-35 21:58:00 Test Item Value Reference Range Interpretation Comments Bili Direct (test code 0.1 See_Comment N [Aut omated message] The = Bili Direct) system which generated this result tra nsmitted reference range : <=0.3. The reference r leo was not used to int erpret this result as reji l/abnormal. [facility] AllianceBqyjkfmHRCSWLLQM5195-88-29 21:58:00 Test Item Value Reference Range Interpretation Comments Bili Total (test code = Bili Total) 0.9 0.2-1.3 N [facility] AllianceVhctxmwLBRILOPEL0803-40-44 21:58:00 Test Item Value Reference Range Interpretation Comments Albumin Lvl (test code = Albumin Lvl) 4.4 3.5-5.0 N [facility] AllianceRuhggjmUYUEUEMLS7473-64-92 21:58:00 Test Item Value Reference Range Interpretation Comments Total Protein (test code = Total 8.8 6.4-8.4 H Protein) [facility] AllianceNfatlhdKJYVUFQEJ0411-11-17 21:58:00 Test Item Value Reference Range Interpretation Comments Bili Indirect (test 0.8 See_Comment N [Automa rohit message] The code = Bili Indirect) system which generated this result tra nsmitted reference range : <=1.0. The reference r leo was not used to int erpret this result as normal/abnormal . [facility] AlliancePgoymbaUKCLQYPZN9637-79-96 21:58:00 Test Item Value Reference Range Interpretation Comments AST (test code = AST) 36 See_Comment N [Auto mated message] The system which ge nerated this result transmit rohit reference range : <=37. The reference range was not used to interpr et this result as reji l/abnormal. [place] [id number] 21:58:00 Test Item Value Reference Range Interpretation Comments Globulin (test code = Globulin) 4.4 2.0-4.0 H [facility] AllianceKuokapbNCVXZAVEC4781-05-55 21:58:00 Test Item Value Reference Range Interpretation Comments A/G Ratio (test code = A/G Ratio) 1.0 0.7-1.6 N [facility]aNfbdrlqGIRQUMZUQJ9256-13-95 21:58:00 Test Item Value Reference Range Interpretation Comments UA Bacteria (test code Occasional /HPF N = UA Bacteria) (08/19/2011 15:58:00) [facility]aWoqimnfMTGXBBGNFU6231-02-56 21:58:00 Test Item Value Reference Range Interpretation Comments UA RBC (test 3-5 /HPF See_Comment A [Automated mes pastor] code = UA RBC) *ABN*(08/19/2011 The syste m which 15:58:00) generated this result transmitted ref erence range: <=2. The reference range was not used to int erpret this result as normal/abnormal . [facility]HkplodqGGKDJZNTLO5724-[facility] 21:58:00 Test Item Value Reference Range Interpretation Comments UA WBC (test code = 3 See_Comment [Automa rohit message] The UA WBC) system which ge nerated this result transmit rohit reference range : <=5. The reference range was not used to interpr et this result as reji l/abnormal. [facility]aCbhkcabNPGFUPVRIG7169-50-77 21:58:00 Test Item Value Reference Range Interpretation Comments UA Mucus (test code = Few /LPF (08/19/2011 N UA Mucus) 15:58:00) [facility]oblniYSIXCFMMJP0376-[facility]-95 21:58:00 Test Item Value Reference Range Interpretation Comments UA Amorph Destiny (test Occasional /HPF A code = UA Amorph *ABN*(08/19/2011 Destiny) 15:58:00) [facility]SkpmwtoRPOEZCYWQQ4641-98-68 21:58:00 Test Item Value Reference Range Interpretation Comments UA Urobilinogen (test code = UA 0.2 0.1-1.0 N Urobilinogen) [facility]EyzsjteUJSDFGXFJS5429-50-81 21:58:00 Test Item Value Reference Range Interpretation Comments UA Sq Epi (test code = Rare /LPF (08/19/2011 N UA Sq Epi) 15:58:00) [facility] AllenEqmkeprOBFWFLCCHM3981-23-72 21:58:00 Test Item Value Reference Range Interpretation Comments Micro? (test code = Performed (08/19/2011 N Micro?) 15:58:00) [facility]GqcjlykGIGLPZBCCJ0144-29-52 21:58:00 Test Item Value Reference Range Interpretation Comments UA Leuk Est (test Negative (08/19/2011 N code = UA Leuk Est) 15:58:00) [facility] AllenJrvklgoMOBKJSUACV6500-82-63 21:58:00 Test Item Value Reference Range Interpretation Comments UA Nitrite (test code Negative (08/19/2011 N = UA Nitrite) 15:58:00) [facility]aOlhscxoWDEHKVCRAS0527-45-66 21:58:00 Test Item Value Reference Range Interpretation Comments UA pH (test code = UA pH) 5.5 1 5.0-8.0 N [facility]aEtxjeoqSVLGQGLHJD1062-47-53 21:58:00 Test Item Value Reference Range Interpretation Comments UA Blood (test code = Trace *ABN*(08/19/2011 A UA Blood) 15:58:00) [facility]aCrozugzUWRCNISGFF6897-16-54 21:58:00 Test Item Value Reference Range Interpretation Comments UA Bili (test code = Negative (08/19/2011 N UA Bili) 15:58:00) [facility]aKzzvuugDJSJOMXTWR3349-17-94 21:58:00 Test Item Value Reference Range Interpretation Comments UA Ketones (test code = 80 mg/dL A UA Ketones) *ABN*(08/19/2011 15:58:00) [facility]FfzxmkkMVOKWHMSRP7226-05-13 21:58:00 Test Item Value Reference Range Interpretation Comments UA Glucose (test code = >=1000 mg/dL A UA Glucose) *ABN*(08/19/2011 15:58:00) [facility]aAdjwluzQZFVRNOJDM3829-04-60 21:58:00 Test Item Value Reference Range Interpretation Comments UA Protein (test code Negative (08/19/2011 N = UA Protein) 15:58:00) [facility]aIarwxbsVJMQFZJMOP6828-77-57 21:58:00 Test Item Value Reference Range Interpretation Comments UA Turbidity (test code Slight Cloudy N = UA Turbidity) (08/19/2011 15:58:00) [facility]TtveymfZLEAXPNPUG6142-10-57 21:58:00 Test Item Value Reference Range Interpretation Comments UA Spec Grav (test code = UA Spec 1.025 1 Grav) [facility]aleWdlgedlHWOYVTBZFM2418-23-03 21:58:00 Test Item Value Reference Range Interpretation Comments UA Color (test code = Yellow (08/19/2011 N UA Color) 15:58:00) [facility] AllianceWuedjheTMKVGZDJO4136-77-03 21:58:00 Test Item Value Reference Range Interpretation Comments S Preg (test code = S Negative (08/19/2011 N Preg) 15:58:00) [facility] AllianceLrlloymRGWMAGJPV8535-82-32 21:58:00 Test Item Value Reference Range Interpretation Comments Lipase Lvl (test code = Lipase Lvl) 169 73-393 N [facility] AllianceSlandacXRBFKVHTP6959-98-09 21:58:00 Test Item Value Reference Range Interpretation Comments ALT (test code = ALT) 54 See_Comment N [Auto mated message] The system which ge nerated this result transmit rohit reference range : <=65. The reference range was not used to interpr et this result as reji l/abnormal. [facility] AllianceTvqoizlOVCDCYUJK1045-89-93 21:58:00 Test Item Value Reference Range Interpretation Comments Alk Phos (test code = Alk Phos) 110 39-136 N [facility] AllianceHdvqwhhJMRSITUJI9435-49-08 21:58:00 Test Item Value Reference Range Interpretation Comments Bili Direct (test code 0.1 See_Comment N [Aut omated message] The = Bili Direct) system which generated this result tra nsmitted reference range : <=0.3. The reference r leo was not used to int erpret this result as reji l/abnormal. [facility] AllianceBytmbeeIMAFULKCY6833-26-76 21:58:00 Test Item Value Reference Range Interpretation Comments Bili Total (test code = Bili Total) 0.9 0.2-1.3 N [facility] AllianceLadajhnYLDJKVPJL1293-01-52 21:58:00 Test Item Value Reference Range Interpretation Comments Albumin Lvl (test code = Albumin Lvl) 4.4 3.5-5.0 N [facility] AllianceGotifuoONJNTRCSB5243-48-69 21:58:00 Test Item Value Reference Range Interpretation Comments Total Protein (test code = Total 8.8 6.4-8.4 H Protein) [facility] AllianceMlzgfbiVBPRIBQUY0591-15-15 21:58:00 Test Item Value Reference Range Interpretation Comments Bili Indirect (test 0.8 See_Comment N [Automa rohit message] The code = Bili Indirect) system which generated this result tra nsmitted reference range : <=1.0. The reference r leo was not used to int erpret this result as normal/abnormal . [facility]aleRxcyxosUMRGSZWKQ9895-41-81 21:58:00 Test Item Value Reference Range Interpretation Comments AST (test code = AST) 36 See_Comment N [Auto mated message] The system which ge nerated this result transmit rohit reference range : <=37. The reference range was not used to interpr et this result as reji l/abnormal. [facility] AllianceFutkqlyFKCIMHQWZ1510-99-44 21:58:00 Test Item Value Reference Range Interpretation Comments Globulin (test code = Globulin) 4.4 2.0-4.0 H [facility] AllianceGjaxmpeCUJOLRTRP2219-22-13 21:58:00 Test Item Value Reference Range Interpretation Comments A/G Ratio (test code = A/G Ratio) 1.0 0.7-1.6 N [facility] AllenLuswkryTLYQFQHTMS3713-00-20 21:58:00 Test Item Value Reference Range Interpretation Comments UA Bacteria (test code Occasional /HPF N = UA Bacteria) (08/19/2011 15:58:00) [facility] AllenQpmgjhjPQLWLCVZUF9678-90-08 21:58:00 Test Item Value Reference Range Interpretation Comments UA RBC (test 3-5 /HPF See_Comment A [Automated mes pastor] code = UA RBC) *ABN*(08/19/2011 The syste m which 15:58:00) generated this result transmitted ref erence range: <=2. The reference range was not used to int erpret this result as normal/abnormal . [facility]aleHmmprtuDEZVEFIILN5794-02-24 21:58:00 Test Item Value Reference Range Interpretation Comments UA WBC (test code = 3 See_Comment [Automa rohit message] The UA WBC) system which ge nerated this result transmit rohit reference range : <=5. The reference range was not used to interpr et this result as reji l/abnormal. [facility]aleYijnudkWOBOVCJERY3394-22-99 21:58:00 Test Item Value Reference Range Interpretation Comments UA Mucus (test code = Few /LPF (08/19/2011 N UA Mucus) 15:58:00) [facility]aleVufwxhiIOERFTKZGB6284-25-43 21:58:00 Test Item Value Reference Range Interpretation Comments UA Amorph Destiny (test Occasional /HPF A code = UA Amorph *ABN*(08/19/2011 Destiny) 15:58:00) [facility]aLrvjcliZQGZNGRBIT7556-44-01 21:58:00 Test Item Value Reference Range Interpretation Comments UA Urobilinogen (test code = UA 0.2 0.1-1.0 N Urobilinogen) [facility]aYljghohJPPSOYPQAV6530-25-49 21:58:00 Test Item Value Reference Range Interpretation Comments UA Sq Epi (test code = Rare /LPF (08/19/2011 N UA Sq Epi) 15:58:00) [facility]aPlpnoqiUOEYGEKQRG6707-66-71 21:58:00 Test Item Value Reference Range Interpretation Comments Micro? (test code = Performed (08/19/2011 N Micro?) 15:58:00) [facility]aRrnyqynCZEMVFAIBN8327-40-87 21:58:00 Test Item Value Reference Range Interpretation Comments UA Leuk Est (test Negative (08/19/2011 N code = UA Leuk Est) 15:58:00) [facility]QlirgdyHLXBHEHLOH1876-40-18 21:58:00 Test Item Value Reference Range Interpretation Comments UA Nitrite (test code Negative (08/19/2011 N = UA Nitrite) 15:58:00) [facility] AllenHdwppcbVZKPQDRFNB9448-93-90 21:58:00 Test Item Value Reference Range Interpretation Comments UA pH (test code = UA pH) 5.5 1 5.0-8.0 N [facility] AllenEqvzslaRHHHAVMUBB0410-69-28 21:58:00 Test Item Value Reference Range Interpretation Comments UA Blood (test code = Trace *ABN*(08/19/2011 A UA Blood) 15:58:00) [facility] AllenNvmufnlXUEFCROOQP0451-19-64 21:58:00 Test Item Value Reference Range Interpretation Comments UA Bili (test code = Negative (08/19/2011 N UA Bili) 15:58:00) [facility] AllenFbhqsdlQQDBDWTGQI6421-76-46 21:58:00 Test Item Value Reference Range Interpretation Comments UA Ketones (test code = 80 mg/dL A UA Ketones) *ABN*(08/19/2011 15:58:00) [facility]aHrtiyjiAZWXJHFCIR1799-94-81 21:58:00 Test Item Value Reference Range Interpretation Comments UA Glucose (test code = >=1000 mg/dL A UA Glucose) *ABN*(08/19/2011 15:58:00) [facility]aKpelskaNRCEDADNKP1308-81-52 21:58:00 Test Item Value Reference Range Interpretation Comments UA Protein (test code Negative (08/19/2011 N = UA Protein) 15:58:00) [facility]aDzongskHAIEVYACYZ2848-69-80 21:58:00 Test Item Value Reference Range Interpretation Comments UA Turbidity (test code Slight Cloudy N = UA Turbidity) (08/19/2011 15:58:00) [facility]aBxerlogUNSUOUNVEC9272-76-87 21:58:00 Test Item Value Reference Range Interpretation Comments UA Spec Grav (test code = UA Spec 1.025 1 Grav) [facility]aJgalhqxWNVPIIESKP4983-08-81 21:58:00 Test Item Value Reference Range Interpretation Comments UA Color (test code = Yellow (08/19/2011 N UA Color) 15:58:00) [facility] AllianceSxhqixyWHIEQJLOO7923-52-93 21:58:00 Test Item Value Reference Range Interpretation Comments S Preg (test code = S Negative (08/19/2011 N Preg) 15:58:00) [facility] AllianceShotfgxODAPBCPWJ6624-93-64 21:58:00 Test Item Value Reference Range Interpretation Comments Lipase Lvl (test code = Lipase Lvl) 169 73-393 N [facility] AllianceJdqxrwtAAFHYMTXF5970-29-52 21:58:00 Test Item Value Reference Range Interpretation Comments ALT (test code = ALT) 54 See_Comment N [Auto mated message] The system which ge nerated this result transmit rohit reference range : <=65. The reference range was not used to interpr et this result as reji l/abnormal. [facility] AllianceMivfbiqBPTGVZDBV6965-53-14 21:58:00 Test Item Value Reference Range Interpretation Comments Alk Phos (test code = Alk Phos) 110 39-136 N [facility] AllianceKsnuyjqHNLOZXIIY6889-81-55 21:58:00 Test Item Value Reference Range Interpretation Comments Bili Direct (test code 0.1 See_Comment N [Aut omated message] The = Bili Direct) system which generated this result tra nsmitted reference range : <=0.3. The reference r leo was not used to int erpret this result as reji l/abnormal. [facility] AllianceAfvkqacATUQIQJXS1875-98-98 21:58:00 Test Item Value Reference Range Interpretation Comments Bili Total (test code = Bili Total) 0.9 0.2-1.3 N [facility] AllianceVpxkvtjYLJGJJLNF9573-75-95 21:58:00 Test Item Value Reference Range Interpretation Comments Albumin Lvl (test code = Albumin Lvl) 4.4 3.5-5.0 N [facility] AllianceIfbotlkSEVZGANKU8241-04-54 21:58:00 Test Item Value Reference Range Interpretation Comments Total Protein (test code = Total 8.8 6.4-8.4 H Protein) [facility] AllianceNqwpqvxKPSDXKJZU5506-40-21 21:58:00 Test Item Value Reference Range Interpretation Comments Bili Indirect (test 0.8 See_Comment N [Automa rohit message] The code = Bili Indirect) system which generated this result tra nsmitted reference range : <=1.0. The reference r leo was not used to int erpret this result as normal/abnormal . [facility] AllianceGtuudyjIRZXNBOMS4758-30-33 21:58:00 Test Item Value Reference Range Interpretation Comments AST (test code = AST) 36 See_Comment N [Auto mated message] The system which ge nerated this result transmit rohit reference range : <=37. The reference range was not used to interpr et this result as reji l/abnormal. [facility] AllianceGedtvgfGEACJLIKD8652-28-67 21:58:00 Test Item Value Reference Range Interpretation Comments Globulin (test code = Globulin) 4.4 2.0-4.0 H [facility] AllianceDaiahesLXGUBLCZZ5657-83-32 21:58:00 Test Item Value Reference Range Interpretation Comments A/G Ratio (test code = A/G Ratio) 1.0 0.7-1.6 N [facility]aYcadzciCNWVKJFCFC4123-47-34 21:58:00 Test Item Value Reference Range Interpretation Comments UA Bacteria (test code Occasional /HPF N = UA Bacteria) (08/19/2011 15:58:00) [facility]aVkeiseuRBQQZIPSPV4255-07-74 21:58:00 Test Item Value Reference Range Interpretation Comments UA RBC (test 3-5 /HPF See_Comment A [Automated mes pastor] code = UA RBC) *ABN*(08/19/2011 The syste m which 15:58:00) generated this result transmitted ref erence range: <=2. The reference range was not used to int erpret this result as normal/abnormal . [facility] AllenFlvhbrnHJBKIPPIIX0461-45-36 21:58:00 Test Item Value Reference Range Interpretation Comments UA WBC (test code = 3 See_Comment [Automa rohit message] The UA WBC) system which ge nerated this result transmit rohit reference range : <=5. The reference range was not used to interpr et this result as reji l/abnormal. [facility] AllenDvlmmalDZMLJRNLYO2886-44-58 21:58:00 Test Item Value Reference Range Interpretation Comments UA Mucus (test code = Few /LPF (08/19/2011 N UA Mucus) 15:58:00) [facility] AllenVdaftrvEIHXOPGBLH8428-24-90 21:58:00 Test Item Value Reference Range Interpretation Comments UA Amorph Destiny (test Occasional /HPF A code = UA Amorph *ABN*(08/19/2011 Destiny) 15:58:00) [facility] AllenTgcrifvSSVOKUZPHX3657-98-72 21:58:00 Test Item Value Reference Range Interpretation Comments UA Urobilinogen (test code = UA 0.2 0.1-1.0 N Urobilinogen) [facility] AllenAjaapspFLFQLGHPDP5613-76-25 21:58:00 Test Item Value Reference Range Interpretation Comments UA Sq Epi (test code = Rare /LPF (08/19/2011 N UA Sq Epi) 15:58:00) [facility]aleZtneiptKNTIAEAEMS1695-71-97 21:58:00 Test Item Value Reference Range Interpretation Comments Micro? (test code = Performed (08/19/2011 N Micro?) 15:58:00) [facility] AllenMbnjowjKDORTLEKXT3526-67-28 21:58:00 Test Item Value Reference Range Interpretation Comments UA Leuk Est (test Negative (08/19/2011 N code = UA Leuk Est) 15:58:00) [facility] AllenFixnudtVHKSQMCREX6478-39-76 21:58:00 Test Item Value Reference Range Interpretation Comments UA Nitrite (test code Negative (08/19/2011 N = UA Nitrite) 15:58:00) [facility]aleFcgvxjqSUVBYDOECH6493-31-14 21:58:00 Test Item Value Reference Range Interpretation Comments UA pH (test code = UA pH) 5.5 1 5.0-8.0 N [facility] AllenAkwtopsPXQLMFKJBK9724-10-56 21:58:00 Test Item Value Reference Range Interpretation Comments UA Blood (test code = Trace *ABN*(08/19/2011 A UA Blood) 15:58:00) [facility]aleWtkfteqWFHTEJBPAY0711-52-25 21:58:00 Test Item Value Reference Range Interpretation Comments UA Bili (test code = Negative (08/19/2011 N UA Bili) 15:58:00) [facility] AllenZxmjdafOACCGLINRM6449-67-60 21:58:00 Test Item Value Reference Range Interpretation Comments UA Ketones (test code = 80 mg/dL A UA Ketones) *ABN*(08/19/2011 15:58:00) [facility] AllenZwwltghHVWYBXJRGC6230-84-44 21:58:00 Test Item Value Reference Range Interpretation Comments UA Glucose (test code = >=1000 mg/dL A UA Glucose) *ABN*(08/19/2011 15:58:00) [facility]valeIiuhlezITUSSLSVUK4426-71-39 21:58:00 Test Item Value Reference Range Interpretation Comments UA Protein (test code Negative (08/19/2011 N = UA Protein) 15:58:00) [facility] AllenWjjrdjtIANUSJCXKS3326-93-60 21:58:00 Test Item Value Reference Range Interpretation Comments UA Turbidity (test code Slight Cloudy N = UA Turbidity) (08/19/2011 15:58:00) [facility]valeUzmggvbVPYYNCNBXD2714-65-49 21:58:00 Test Item Value Reference Range Interpretation Comments UA Spec Grav (test code = UA Spec 1.025 1 Grav) [facility] AllenKqclqpnWHWIKQKRFX7786-03-79 21:58:00 Test Item Value Reference Range Interpretation Comments UA Color (test code = Yellow (08/19/2011 N UA Color) 15:58:00) [facility]aleGppuyvlYWUVYLNLT9737-27-75 21:58:00 Test Item Value Reference Range Interpretation Comments S Preg (test code = S Negative (08/19/2011 N Preg) 15:58:00) [facility] AllianceZxsrldhXQYPUFGFJ8874-16-69 21:58:00 Test Item Value Reference Range Interpretation Comments Lipase Lvl (test code = Lipase Lvl) 169 73-393 N [facility] AllianceLxyqshtDTSKGBLSO3232-87-16 21:58:00 Test Item Value Reference Range Interpretation Comments ALT (test code = ALT) 54 See_Comment N [Auto mated message] The system which ge nerated this result transmit rohit reference range : <=65. The reference range was not used to interpr et this result as reji l/abnormal. [facility] AlliancePdcicqbKVKCLYWTM6389-47-80 21:58:00 Test Item Value Reference Range Interpretation Comments Alk Phos (test code = Alk Phos) 110 39-136 N [facility] AllianceBdbrmwpLHUTMXNBW4978-99-88 21:58:00 Test Item Value Reference Range Interpretation Comments Bili Direct (test code 0.1 See_Comment N [Aut omated message] The = Bili Direct) system which generated this result tra nsmitted reference range : <=0.3. The reference r leo was not used to int erpret this result as reji l/abnormal. [facility] AllianceUmxyutsCKPRECCSI0300-41-45 21:58:00 Test Item Value Reference Range Interpretation Comments Bili Total (test code = Bili Total) 0.9 0.2-1.3 N [facility] AllianceDppkephZGYLLDDBS6941-03-83 21:58:00 Test Item Value Reference Range Interpretation Comments Albumin Lvl (test code = Albumin Lvl) 4.4 3.5-5.0 N [facility] AllianceWjvawupMZBABAIRW0030-97-65 21:58:00 Test Item Value Reference Range Interpretation Comments Total Protein (test code = Total 8.8 6.4-8.4 H Protein) [facility] AllianceOcxvbxcQAHCOIIYL3544-22-62 21:58:00 Test Item Value Reference Range Interpretation Comments Bili Indirect (test 0.8 See_Comment N [Automa rohit message] The code = Bili Indirect) system which generated this result tra nsmitted reference range : <=1.0. The reference r leo was not used to int erpret this result as normal/abnormal . [facility] AllianceJbetfhkEPZSQMHLF8148-89-69 21:58:00 Test Item Value Reference Range Interpretation Comments AST (test code = AST) 36 See_Comment N [Auto mated message] The system which ge nerated this result transmit rohit reference range : <=37. The reference range was not used to interpr et this result as reji l/abnormal. [facility] AllianceAqogjisPKQOIPBYS2725-32-21 21:58:00 Test Item Value Reference Range Interpretation Comments Globulin (test code = Globulin) 4.4 2.0-4.0 H [facility] AllianceTcenaatQQEYSIPUQ6791-08-61 21:58:00 Test Item Value Reference Range Interpretation Comments A/G Ratio (test code = A/G Ratio) 1.0 0.7-1.6 N [facility] AllenCttukeyJIXLPWHKJG3645-71-49 21:58:00 Test Item Value Reference Range Interpretation Comments UA Bacteria (test code Occasional /HPF N = UA Bacteria) (08/19/2011 15:58:00) [facility]CduuqllXRIOXVOPBQ7493-55-36 21:58:00 Test Item Value Reference Range Interpretation Comments UA RBC (test 3-5 /HPF See_Comment A [Automated mes pastor] code = UA RBC) *ABN*(08/19/2011 The syste m which 15:58:00) generated this result transmitted ref erence range: <=2. The reference range was not used to int erpret this result as normal/abnormal . [facility] AllenDdvejcaQKIWFNTWXV5737-89-64 21:58:00 Test Item Value Reference Range Interpretation Comments UA WBC (test code = 3 See_Comment [Automa rohit message] The UA WBC) system which ge nerated this result transmit rohit reference range : <=5. The reference range was not used to interpr et this result as reji l/abnormal. [facility]aleNnlkkijVHNEPUAETO0212-60-97 21:58:00 Test Item Value Reference Range Interpretation Comments UA Mucus (test code = Few /LPF (08/19/2011 N UA Mucus) 15:58:00) [facility] AllenGjsvpcoEUQGMTANAF0542-03-91 21:58:00 Test Item Value Reference Range Interpretation Comments UA Amorph Destiny (test Occasional /HPF A code = UA Amorph *ABN*(08/19/2011 Destiny) 15:58:00) [facility] AllenJdqtblkAYISSYIYXC8167-96-39 21:58:00 Test Item Value Reference Range Interpretation Comments UA Urobilinogen (test code = UA 0.2 0.1-1.0 N Urobilinogen) [facility] AllenSjwrwbeJKHPLKMECU8038-25-22 21:58:00 Test Item Value Reference Range Interpretation Comments UA Sq Epi (test code = Rare /LPF (08/19/2011 N UA Sq Epi) 15:58:00) [facility] AllenJktdzzdHNIEBXYEUH3637-38-54 21:58:00 Test Item Value Reference Range Interpretation Comments Micro? (test code = Performed (08/19/2011 N Micro?) 15:58:00) [facility] AllenJarcdrqXUAZAURNFG1099-86-60 21:58:00 Test Item Value Reference Range Interpretation Comments UA Leuk Est (test Negative (08/19/2011 N code = UA Leuk Est) 15:58:00) [facility] AllenOikjtjtEQVRFZIHKO9609-61-05 21:58:00 Test Item Value Reference Range Interpretation Comments UA Nitrite (test code Negative (08/19/2011 N = UA Nitrite) 15:58:00) [facility]aRcymhudNNLCYIRPPF9889-52-61 21:58:00 Test Item Value Reference Range Interpretation Comments UA pH (test code = UA pH) 5.5 1 5.0-8.0 N [facility] AllenKhptyuyZXHBWRCNAM6331-97-04 21:58:00 Test Item Value Reference Range Interpretation Comments UA Blood (test code = Trace *ABN*(08/19/2011 A UA Blood) 15:58:00) [facility]aHjxfnnbKSGNQXOTXU6977-69-45 21:58:00 Test Item Value Reference Range Interpretation Comments UA Bili (test code = Negative (08/19/2011 N UA Bili) 15:58:00) [facility] AllenBpgeotqYFKRIBJZYJ4507-90-07 21:58:00 Test Item Value Reference Range Interpretation Comments UA Ketones (test code = 80 mg/dL A UA Ketones) *ABN*(08/19/2011 15:58:00) [facility] AllenWisbuixXLPWFVCPTJ0977-43-61 21:58:00 Test Item Value Reference Range Interpretation Comments UA Glucose (test code = >=1000 mg/dL A UA Glucose) *ABN*(08/19/2011 15:58:00) [facility] AllenXshmadzHGGRXTZZEX3809-37-63 21:58:00 Test Item Value Reference Range Interpretation Comments UA Protein (test code Negative (08/19/2011 N = UA Protein) 15:58:00) [facility] AllenVkanvpyWHTXUOJVLK7244-09-00 21:58:00 Test Item Value Reference Range Interpretation Comments UA Turbidity (test code Slight Cloudy N = UA Turbidity) (08/19/2011 15:58:00) [facility]aXxzfisfOCLIAOWHJV3620-18-95 21:58:00 Test Item Value Reference Range Interpretation Comments UA Spec Grav (test code = UA Spec 1.025 1 Grav) [facility]aOvluyobRRECJZPXBI7937-32-52 21:58:00 Test Item Value Reference Range Interpretation Comments UA Color (test code = Yellow (08/19/2011 N UA Color) 15:58:00) [facility] AllianceOdjkymgNUIXEXRSV7340-39-81 21:13:00 Test Item Value Reference Range Interpretation Comments AST (test code = AST) 23 See_Comment N [Auto mated message] The system which ge nerated this result transmit rohit reference range : <=37. The reference range was not used to interpr et this result as reji l/abnormal. [facility]QlqotlsCPGZKYHOV3679-00-32 21:13:00 Test Item Value Reference Range Interpretation Comments Bili Total (test code = Bili Total) 1.0 0.2-1.3 N [facility]anoMiqtdaoKDDKSIYEN8958-28-09 21:13:00 Test Item Value Reference Range Interpretation Comments Alk Phos (test code = Alk Phos) 115 39-136 N [facility]anoSsguqtvDRRYOAZPI4566-72-78 21:13:00 Test Item Value Reference Range Interpretation Comments ALT (test code = ALT) 56 See_Comment N [Auto mated message] The system which ge nerated this result transmit rohit reference range : <=65. The reference range was not used to interpr et this result as reji l/abnormal. [facility]anoGfwxuztTKGUVBZRV2801-28-56 21:13:00 Test Item Value Reference Range Interpretation Comments Total Protein (test code = Total 9.0 6.4-8.4 H Protein) [facility] AllianceXlxpztgSNAJFWWFR2648-65-24 21:13:00 Test Item Value Reference Range Interpretation Comments Albumin Lvl (test code = Albumin Lvl) 4.8 3.5-5.0 N [facility]anoTxowznaZGIYVEGQP5155-40-61 21:13:00 Test Item Value Reference Range Interpretation Comments Globulin (test code = Globulin) 4.2 2.0-4.0 H [facility] AllianceZknkbvhWKAOBCLWF8820-32-24 21:13:00 Test Item Value Reference Range Interpretation Comments A/G Ratio (test code = A/G Ratio) 1.1 0.7-1.6 N [facility] AllianceTgqarsmOMQOHEIGD8159-72-54 21:13:00 Test Item Value Reference Range Interpretation Comments B/C Ratio (test code = B/C Ratio) 30 6-25 H [facility]DkbhyjmBRHOKJFEKA9473-63-05 21:13:00 Test Item Value Reference Range Interpretation Comments RBC Morph (test code = Normal (08/19/2011 N RBC Morph) 15:13:00) [facility]TpzefxpRZJZKKGLHU6897-84-64 21:13:00 Test Item Value Reference Range Interpretation Comments Large Plt (test code = Slight *ABN*(08/19/2011 A Large Plt) 15:13:00) [facility] HospitalUorqrvbGGJFOPMXHB2062-45-21 21:13:00 Test Item Value Reference Range Interpretation Comments Atypical Lymphs (test code = Atypical 0.0 N Lymphs) [facility] HospitalTotaibrMSMCPYLJGT1018-60-25 21:13:00 Test Item Value Reference Range Interpretation Comments Bands (test code = 0.0 See_Comment N [Automat ed message] The Bands) system which ge nerated this result transmit rohit reference range : <=11.0. The reference r leo was not used to interpr et this result as reji l/abnormal. [facility] AllianceFuvnqxvJAAQTLBXC2706-96-04 21:13:00 Test Item Value Reference Range Interpretation Comments AST (test code = AST) 23 See_Comment N [Auto mated message] The system which ge nerated this result transmit rohit reference range : <=37. The reference range was not used to interpr et this result as reji l/abnormal. [facility] AllianceQsxkkdzCRHMLCPRW6327-25-58 21:13:00 Test Item Value Reference Range Interpretation Comments Bili Total (test code = Bili Total) 1.0 0.2-1.3 N [facility] AllianceOfetohwDVJMWOOHE4410-62-44 21:13:00 Test Item Value Reference Range Interpretation Comments Alk Phos (test code = Alk Phos) 115 39-136 N [facility] AlliancePksvbbaBXQMNULHD8057-55-96 21:13:00 Test Item Value Reference Range Interpretation Comments ALT (test code = ALT) 56 See_Comment N [Auto mated message] The system which ge nerated this result transmit rohit reference range : <=65. The reference range was not used to interpr et this result as reji l/abnormal. [facility] AllianceLqdjwhkZMXDKSPAP1080-49-32 21:13:00 Test Item Value Reference Range Interpretation Comments Total Protein (test code = Total 9.0 6.4-8.4 H Protein) [facility] AllianceMawdxzjVMPOCYGND1283-88-87 21:13:00 Test Item Value Reference Range Interpretation Comments Albumin Lvl (test code = Albumin Lvl) 4.8 3.5-5.0 N [facility] AllianceOlpfyhwFSNLWJVLU6047-92-78 21:13:00 Test Item Value Reference Range Interpretation Comments Globulin (test code = Globulin) 4.2 2.0-4.0 H [facility] AllianceUducjsfRLHJLQKDI9368-37-07 21:13:00 Test Item Value Reference Range Interpretation Comments A/G Ratio (test code = A/G Ratio) 1.1 0.7-1.6 N [facility] AllianceVyrdzeiOGNLNKESZ1874-55-43 21:13:00 Test Item Value Reference Range Interpretation Comments B/C Ratio (test code = B/C Ratio) 30 6-25 H [facility] HospitalDsrhtjuVJWDVCUDTM0887-78-90 21:13:00 Test Item Value Reference Range Interpretation Comments RBC Morph (test code = Normal (08/19/2011 N RBC Morph) 15:13:00) [facility] HospitalSlixmrqMBWXHYAEWQ9813-38-86 21:13:00 Test Item Value Reference Range Interpretation Comments Large Plt (test code = Slight *ABN*(08/19/2011 A Large Plt) 15:13:00) [facility] HospitalEghmnwxYHMKTTZTBJ4013-42-56 21:13:00 Test Item Value Reference Range Interpretation Comments Atypical Lymphs (test code = Atypical 0.0 N Lymphs) [facility] HospitalPkidlasSNRODZJXOT0180-28-72 21:13:00 Test Item Value Reference Range Interpretation Comments Bands (test code = 0.0 See_Comment N [Automat ed message] The Bands) system which ge nerated this result transmit rohit reference range : <=11.0. The reference r leo was not used to interpr et this result as reji l/abnormal. [facility] AllianceLoewwdeWOZXDTCZB3545-61-21 21:13:00 Test Item Value Reference Range Interpretation Comments AST (test code = AST) 23 See_Comment N [Auto mated message] The system which ge nerated this result transmit rohit reference range : <=37. The reference range was not used to interpr et this result as reji l/abnormal. [facility] AllianceDwwzoqaZKMARIJRU5698-15-02 21:13:00 Test Item Value Reference Range Interpretation Comments Bili Total (test code = Bili Total) 1.0 0.2-1.3 N [facility] AllianceGptwvejGDTAEFFXY9067-49-32 21:13:00 Test Item Value Reference Range Interpretation Comments Alk Phos (test code = Alk Phos) 115 39-136 N [facility] AllianceAjxvgyvBGGHKGGQG6675-04-23 21:13:00 Test Item Value Reference Range Interpretation Comments ALT (test code = ALT) 56 See_Comment N [Auto mated message] The system which ge nerated this result transmit rohit reference range : <=65. The reference range was not used to interpr et this result as reji l/abnormal. [facility] AllianceJobshffPKHLHQOMH1842-97-49 21:13:00 Test Item Value Reference Range Interpretation Comments Total Protein (test code = Total 9.0 6.4-8.4 H Protein) [facility] AllianceRwqssweBVXZCDMMU6215-24-27 21:13:00 Test Item Value Reference Range Interpretation Comments Albumin Lvl (test code = Albumin Lvl) 4.8 3.5-5.0 N [facility] AllianceHgoyrwrOLUCNJBFO5958-40-19 21:13:00 Test Item Value Reference Range Interpretation Comments Globulin (test code = Globulin) 4.2 2.0-4.0 H [facility] AllianceQbjsudwVZWEIHFWT2009-08-45 21:13:00 Test Item Value Reference Range Interpretation Comments A/G Ratio (test code = A/G Ratio) 1.1 0.7-1.6 N [facility] AllianceGcrrahmDHPNDRESU6325-01-69 21:13:00 Test Item Value Reference Range Interpretation Comments B/C Ratio (test code = B/C Ratio) 30 6-25 H [facility] HospitalNcrsfhgUZWSJMYNWM4903-78-73 21:13:00 Test Item Value Reference Range Interpretation Comments RBC Morph (test code = Normal (08/19/2011 N RBC Morph) 15:13:00) [facility] HospitalUbxfwjhEJQEATPFUG8607-96-25 21:13:00 Test Item Value Reference Range Interpretation Comments Large Plt (test code = Slight *ABN*(08/19/2011 A Large Plt) 15:13:00) [facility] HospitalAewjpbsFEFQIPYOMR3578-37-04 21:13:00 Test Item Value Reference Range Interpretation Comments Atypical Lymphs (test code = Atypical 0.0 N Lymphs) [facility] HospitalJtbqkzzGCJZDAJTLJ8096-36-23 21:13:00 Test Item Value Reference Range Interpretation Comments Bands (test code = 0.0 See_Comment N [Automat ed message] The Bands) system which ge nerated this result transmit rohit reference range : <=11.0. The reference r leo was not used to interpr et this result as reji l/abnormal. [facility] AllianceQucahtmFYDAIGIIO2088-92-43 21:13:00 Test Item Value Reference Range Interpretation Comments AST (test code = AST) 23 See_Comment N [Auto mated message] The system which ge nerated this result transmit rohit reference range : <=37. The reference range was not used to interpr et this result as reji l/abnormal. [facility] AllianceQtfguryYOIMMGTNO2301-08-32 21:13:00 Test Item Value Reference Range Interpretation Comments Bili Total (test code = Bili Total) 1.0 0.2-1.3 N [facility] AllianceOrqjhakFNIQYFEQW4184-42-35 21:13:00 Test Item Value Reference Range Interpretation Comments Alk Phos (test code = Alk Phos) 115 39-136 N [facility] AlliancePzjrbhyTDNNDULLR5935-58-64 21:13:00 Test Item Value Reference Range Interpretation Comments ALT (test code = ALT) 56 See_Comment N [Auto mated message] The system which ge nerated this result transmit rohit reference range : <=65. The reference range was not used to interpr et this result as reji l/abnormal. [facility] AllianceXgsbqvdPBCDXQKNH7091-48-12 21:13:00 Test Item Value Reference Range Interpretation Comments Total Protein (test code = Total 9.0 6.4-8.4 H Protein) [facility] AllianceCfldmljECDXWILSD0304-83-10 21:13:00 Test Item Value Reference Range Interpretation Comments Albumin Lvl (test code = Albumin Lvl) 4.8 3.5-5.0 N [facility] AllianceHnhpbzhWIWBJJJYI6923-82-93 21:13:00 Test Item Value Reference Range Interpretation Comments Globulin (test code = Globulin) 4.2 2.0-4.0 H [facility] AllianceGuqnntkODKILXMLV9103-75-86 21:13:00 Test Item Value Reference Range Interpretation Comments A/G Ratio (test code = A/G Ratio) 1.1 0.7-1.6 N [facility] AllianceAkfbvioSZFADDUSD5140-63-08 21:13:00 Test Item Value Reference Range Interpretation Comments B/C Ratio (test code = B/C Ratio) 30 6-25 H [facility] HospitalYhmegdvTELRHNBBTJ9348-35-84 21:13:00 Test Item Value Reference Range Interpretation Comments RBC Morph (test code = Normal (08/19/2011 N RBC Morph) 15:13:00) [facility] HospitalSuriywfRZMHEWTKVM8012-33-49 21:13:00 Test Item Value Reference Range Interpretation Comments Large Plt (test code = Slight *ABN*(08/19/2011 A Large Plt) 15:13:00) [facility] HospitalXpaiqzdOZGQGMTIEW6831-70-22 21:13:00 Test Item Value Reference Range Interpretation Comments Atypical Lymphs (test code = Atypical 0.0 N Lymphs) [facility] HospitalZqtfurqBGFZQEXHYH1900-47-56 21:13:00 Test Item Value Reference Range Interpretation Comments Bands (test code = 0.0 See_Comment N [Automat ed message] The Bands) system which ge nerated this result transmit rohit reference range : <=11.0. The reference r leo was not used to interpr et this result as reji l/abnormal. [facility] AllianceTqbnkfhRAOKFTTTL5167-46-26 21:13:00 Test Item Value Reference Range Interpretation Comments AST (test code = AST) 23 See_Comment N [Auto mated message] The system which ge nerated this result transmit rohit reference range : <=37. The reference range was not used to interpr et this result as reji l/abnormal. [facility] AllianceFscdswiWFILFWAGC1034-50-59 21:13:00 Test Item Value Reference Range Interpretation Comments Bili Total (test code = Bili Total) 1.0 0.2-1.3 N [facility] AllianceTslquibGJONMWAYN4645-86-07 21:13:00 Test Item Value Reference Range Interpretation Comments Alk Phos (test code = Alk Phos) 115 39-136 N [facility] AllianceHeoxjryMWOHRGYIP6609-85-07 21:13:00 Test Item Value Reference Range Interpretation Comments ALT (test code = ALT) 56 See_Comment N [Auto mated message] The system which ge nerated this result transmit rohit reference range : <=65. The reference range was not used to interpr et this result as reji l/abnormal. [facility] AllianceDmctvbmDCPDLKRRM5724-66-25 21:13:00 Test Item Value Reference Range Interpretation Comments Total Protein (test code = Total 9.0 6.4-8.4 H Protein) [facility] AllianceIowxxxzKAHKFJZIW9813-30-94 21:13:00 Test Item Value Reference Range Interpretation Comments Albumin Lvl (test code = Albumin Lvl) 4.8 3.5-5.0 N [facility] AllianceCswcggjXCFFIUSIL7457-16-55 21:13:00 Test Item Value Reference Range Interpretation Comments Globulin (test code = Globulin) 4.2 2.0-4.0 H [facility] AllianceZzvyspnIEZIHJZPO8990-60-06 21:13:00 Test Item Value Reference Range Interpretation Comments A/G Ratio (test code = A/G Ratio) 1.1 0.7-1.6 N [facility] AllianceTbglvaiVOWHQAMYQ8391-53-87 21:13:00 Test Item Value Reference Range Interpretation Comments B/C Ratio (test code = B/C Ratio) 30 6-25 H [facility] HospitalIcxnfpxIWNKSXSGBS9020-30-84 21:13:00 Test Item Value Reference Range Interpretation Comments RBC Morph (test code = Normal (08/19/2011 N RBC Morph) 15:13:00) [facility] HospitalEwtqxnpDTPVGSXWPU6971-51-78 21:13:00 Test Item Value Reference Range Interpretation Comments Large Plt (test code = Slight *ABN*(08/19/2011 A Large Plt) 15:13:00) [facility] HospitalQmfeorxZGAQACIDFE2439-63-11 21:13:00 Test Item Value Reference Range Interpretation Comments Atypical Lymphs (test code = Atypical 0.0 N Lymphs) [facility] HospitalYpyjmhnRBFXTLGFNG7709-72-17 21:13:00 Test Item Value Reference Range Interpretation Comments Bands (test code = 0.0 See_Comment N [Automat ed message] The Bands) system which ge nerated this result transmit rohit reference range : <=11.0. The reference r leo was not used to interpr et this result as reji l/abnormal. [facility] AllianceFjmnnguGPAAXNGWQ0435-84-74 21:10:00 Test Item Value Reference Range Interpretation Comments O2 Sat Roberth (test code = O2 Sat Roberth) 74.0 40.0-70.0 H [facility] AllianceVcozvtvEIUEAPPCG7082-44-35 21:10:00 Test Item Value Reference Range Interpretation Comments Temp Roberth (test code = Temp Roberth) 37.0 [facility] AllianceBjtmpksOUPWCCYCU8112-49-38 21:10:00 Test Item Value Reference Range Interpretation Comments pO2 Roberth (test code = pO2 Roberth) 42 20-49 N [facility] AllianceJkkhhegEMFOTJANR5854-75-20 21:10:00 Test Item Value Reference Range Interpretation Comments HCO3 Roberth (test code = HCO3 Roberth) 17.3 22.0-26.0 L [facility] AllianceVnvqbfrCEONQSZTK7645-55-02 21:10:00 Test Item Value Reference Range Interpretation Comments pH Roberth (test code = pH Roberth) 7.34 7.28-7.42 N [facility] AllianceDajigxmVOQQVOOTN1826-79-68 21:10:00 Test Item Value Reference Range Interpretation Comments pCO2 Roberth (test code = pCO2 Roberth) 32 38-52 L [facility] AllianceYmlzioaXGWVISBVX1126-57-88 21:10:00 Test Item Value Reference Range Interpretation Comments BE Roberth (test code = -7 See_Comment L [Automa rohit message] The BE Roberth) system which ge nerated this result transmit rohit reference range : <=2. The reference range was not used to interpr et this result as reji l/abnormal. [facility] AllianceYqobatuLRXTZWGWU4952-90-27 21:10:00 Test Item Value Reference Range Interpretation Comments O2 Sat Roberth (test code = O2 Sat Roberth) 74.0 40.0-70.0 H [facility] AllianceOskrfhsKLWWPSTBA1233-63-61 21:10:00 Test Item Value Reference Range Interpretation Comments Temp Roberth (test code = Temp Roberth) 37.0 [facility] AllianceXkkjaghNTDVHLXAM5729-21-56 21:10:00 Test Item Value Reference Range Interpretation Comments pO2 Roberth (test code = pO2 Roberth) 42 20-49 N [facility] AllianceOdqscvmVZYFCUCWC1114-60-67 21:10:00 Test Item Value Reference Range Interpretation Comments HCO3 Roberth (test code = HCO3 Roberth) 17.3 22.0-26.0 L [facility] AllianceKjrmqwhWACAZHOXZ1970-36-06 21:10:00 Test Item Value Reference Range Interpretation Comments pH Roberth (test code = pH Roberth) 7.34 7.28-7.42 N [facility] AllianceWyionnxAMMOAFXSR0073-81-46 21:10:00 Test Item Value Reference Range Interpretation Comments pCO2 Roberth (test code = pCO2 Roberth) 32 38-52 L [facility] AllianceVlrvobiNJZWACPPP8245-61-80 21:10:00 Test Item Value Reference Range Interpretation Comments BE Roberth (test code = -7 See_Comment L [Automa rohit message] The BE Roberth) system which ge nerated this result transmit rohit reference range : <=2. The reference range was not used to interpr et this result as reji l/abnormal. [facility] AllianceImgzyxwCACUTSNCI1338-75-39 21:10:00 Test Item Value Reference Range Interpretation Comments O2 Sat Roberth (test code = O2 Sat Roberth) 74.0 40.0-70.0 H [facility] AllianceEnffjjcKPPCGMWRW2151-29-18 21:10:00 Test Item Value Reference Range Interpretation Comments Temp Roberth (test code = Temp Roberth) 37.0 [facility] AllianceBbbwpnuDVUPDDSWU7813-23-88 21:10:00 Test Item Value Reference Range Interpretation Comments pO2 Roberth (test code = pO2 Roberth) 42 20-49 N [facility] AllianceFoxmruvGTINZUCQU8111-78-89 21:10:00 Test Item Value Reference Range Interpretation Comments HCO3 Roberth (test code = HCO3 Roberth) 17.3 22.0-26.0 L [facility] AllianceVgznahuWAPBPJOCT8911-88-83 21:10:00 Test Item Value Reference Range Interpretation Comments pH Roberth (test code = pH Roberth) 7.34 7.28-7.42 N [facility] AllianceJfcbvslDHNRMNSJS2514-88-91 21:10:00 Test Item Value Reference Range Interpretation Comments pCO2 Roberth (test code = pCO2 Roberth) 32 38-52 L [facility] AllianceVzqiclxBONMJIMIM6474-13-66 21:10:00 Test Item Value Reference Range Interpretation Comments BE Roberth (test code = -7 See_Comment L [Automa rohit message] The BE Roberth) system which ge nerated this result transmit rohit reference range : <=2. The reference range was not used to interpr et this result as reji l/abnormal. [facility] AllianceUlfxotzUIUSIOQTU3596-50-23 21:10:00 Test Item Value Reference Range Interpretation Comments O2 Sat Roberth (test code = O2 Sat Roberth) 74.0 40.0-70.0 H [facility] AllianceVvdxhvnKYOFBRCCF9505-63-49 21:10:00 Test Item Value Reference Range Interpretation Comments Temp Roberth (test code = Temp Roberth) 37.0 [facility] AllianceSxhrykrXHXSQIZVQ2100-68-14 21:10:00 Test Item Value Reference Range Interpretation Comments pO2 Roberth (test code = pO2 Roberth) 42 20-49 N [facility] AllianceFhuqrypKDONHUCDI5244-95-81 21:10:00 Test Item Value Reference Range Interpretation Comments HCO3 Roberth (test code = HCO3 Roberth) 17.3 22.0-26.0 L [facility] AllianceNphshwfQDVPSCFCK8599-05-23 21:10:00 Test Item Value Reference Range Interpretation Comments pH Roberth (test code = pH Roberth) 7.34 7.28-7.42 N [facility] AllianceRpcxihdGOBLSMJWL9333-96-19 21:10:00 Test Item Value Reference Range Interpretation Comments pCO2 Roberth (test code = pCO2 Roberth) 32 38-52 L [facility] AllianceGhivqjtODVWXILFM3260-77-85 21:10:00 Test Item Value Reference Range Interpretation Comments BE Roberth (test code = -7 See_Comment L [Automa rohit message] The BE Roberth) system which ge nerated this result transmit rohit reference range : <=2. The reference range was not used to interpr et this result as reji l/abnormal. [facility] AllianceTefsueoKUOCRKVCE7031-51-20 21:10:00 Test Item Value Reference Range Interpretation Comments O2 Sat Roberth (test code = O2 Sat Roberth) 74.0 40.0-70.0 H [facility] AllianceSqfnwsbAZTENAEJI9240-76-15 21:10:00 Test Item Value Reference Range Interpretation Comments Temp Roberth (test code = Temp Roberth) 37.0 [facility] AlliancePuwebzyZTFNHWOBK4895-16-47 21:10:00 Test Item Value Reference Range Interpretation Comments pO2 Roberth (test code = pO2 Roberth) 42 20-49 N [facility] AllianceLwbvusgSKZUUTGTL7378-74-26 21:10:00 Test Item Value Reference Range Interpretation Comments HCO3 Roberth (test code = HCO3 Roberth) 17.3 22.0-26.0 L [facility] AllianceEzldgnkLNLKVFOSH8027-73-99 21:10:00 Test Item Value Reference Range Interpretation Comments pH Roberth (test code = pH Roberth) 7.34 7.28-7.42 N [facility] AllianceAjsrdcwTVWITZRBO7458-95-99 21:10:00 Test Item Value Reference Range Interpretation Comments pCO2 Roberth (test code = pCO2 Roberth) 32 38-52 L [facility]aleFgkglbcYYLOVGRRY1539-16-22 21:10:00 Test Item Value Reference Range Interpretation Comments BE Roberth (test code = -7 See_Comment L [Automa rohit message] The BE Roberth) system which ge nerated this result transmit rohit reference range : <=2. The reference range was not used to interpr et this result as reji l/abnormal. [facility]valeTyaxmsaTXKAVKKSPP2903-69-32 20:34:00 Test Item Value Reference Range Interpretation Comments CDC-HIV 1/2 Ab (test Negative *NA*(08/19/2011 code = CDC-HIV 1/2 14:34:00) Ab) [facility]Rug[facility]ynKGQDIRLIMN3471-20-44 20:34:00 Test Item Value Reference Range Interpretation Comments CDC-HIV 1/2 Ab (test Negative *NA*(08/19/2011 code = CDC-HIV 1/2 14:34:00) Ab) [facility]aleEmtvjbsSQGLNHPOPC9313-95-88 20:34:00 Test Item Value Reference Range Interpretation Comments CDC-HIV 1/2 Ab (test Negative *NA*(08/19/2011 code = CDC-HIV 1/2 14:34:00) Ab) [facility]valeGbazbmhLHCBJIXYGU8502-43-78 20:34:00 Test Item Value Reference Range Interpretation Comments CDC-HIV 1/2 Ab (test Negative *NA*(08/19/2011 code = CDC-HIV 1/2 14:34:00) Ab) [facility]alePmqrwceFGQPCUNWTQ5510-82-36 20:34:00 Test Item Value Reference Range Interpretation Comments CDC-HIV 1/2 Ab (test Negative *NA*(08/19/2011 code = CDC-HIV 1/2 14:34:00) Ab) [facility]
== END 2022-12-02 12:55 | disposition home or self-care (01) ==
LOC: ER 12:37
DX: K31.84 Gastroparesis (principal); E11.22 Type 2 diabetes mellitus with diabetic chronic kidney disease; I13.2 Hypertensive heart and chronic kidney disease with heart failure and with stage 5 chronic kidney disease, or end stage renal disease; I50.9 Heart failure, unspecified; N18.6 End stage renal disease; Z99.2 Dependence on renal dialysis; Z88.0 Allergy status to penicillin; Z88.5 Allergy status to narcotic agent; Z88.8 Allergy status to other drugs, medicaments and biological substances; Z91.048 Other nonmedicinal substance allergy status
CPT/HCPCS: 99282

== ENCOUNTER 2022-12-09 21:22 | Observation (INO) | payer MEDICARE, OTHER ==
[2022-12-09] MEDS ORDERED: FENTANYL CITR 100 MCG/2 ML ONE (22:28)
[2022-12-09] MEDS ORDERED: METOCLOPRAMIDE 10 MG/2mL INJ ONE (22:28)
[2022-12-09] MEDS ORDERED: ONDANSETRON 4 MG/2 ML VIAL ONE (22:28)
[2022-12-09] MEDS ORDERED: NA CHLORIDE 0.9% 50 ML ONE (22:29)
[2022-12-09 22:39] LABS: Absolute Lymphocytes (CBC) 0.9 K/uL (0.7-4.9); Hematocrit 26.3 % (36.0-45.0); Lymphocytes % 25.5 % (15.3-44.8); MCV 89.2 fL (80-100); MPV 8.6 fL (7.6-11.3); RBC Red Blood Cell Count 2.95 M/uL (3.86-4.86)
[2022-12-09 22:42] LABS: Albumin 3.2 g/dL (3.4-5.0); Bilirubin Total 0.6 mg/dL (0.2-1.0); Potassium 3.5 mEq/L (3.5-5.1); Protein, Total 6.6 g/dL (6.4-8.2)
--- OUTSIDE RECORDS SUMMARY | 2022-12-09 22:54 | XMS REPORT | Continuity of Care Document ---
:1980 Author Organization [facility] t Address [address] [place] [address] Care Team Providers Name Role Phone Sharpless Primary Care Physician Sanya Attending Clinician Unavailable Nodal_J Attending Clinician Unavailable Peg Attending Clinician Unavailable RAJ WEST Attending Clinician Unavailable Jose Miguel Morin DO Attending Clinician Rosy BURNS, Brooke Ricci Attending Clinician [phone] Seth HOGUEC, Bessie Parks Attending Clinician [phone] AnthonyChapin guamana Attending Clinician Unavailable Melany Gilbert Attending Clinician Pat BURNS, Sivan Brand Attending Clinician Isra BURNS, Rachel Lew Attending Clinician [phone] Robe BURNS, Holden Elmore Attending Clinician Magaly BURNS, Shanda Higuera Attending Clinician Endy BURNS, Aurelio Attending Clinician Alesia Dodd Attending Clinician Joe BURNS, Mando Raphael Attending Clinician [phone] Jose Carlos BURNS, Veto Vincent Attending Clinician Kenyatta BURNS, Juwan Attending Clinician Doc BURNS, Sofi Juárez Attending Clinician [phone] Robert MAYS, Gayle Attending Clinician Unavailable [...] MAYS, Elodia Attending Clinician Unavailable Doctor Unassigned, [place] Attending Clinician Unavailable MONA BHAT Attending Clinician [...] Clinician DEJA SANDOVAL Attending Clinician Unavailable Black CASTANEDAM, Deja Magallon Attending Clinician [phone], Adc Echo Room 1 - Attending [...] Arun Espitia MD, Victor J Admitting Clinician [phone] HUI WRIGHT Admitting Clinician Unavailable Hui Wright Admitting Clinician Rei Waldron Admitting Clinician Unavailable MOISE BHAKTA Admitting Clinician Unavailable Danae Cha Admitting Clinician Joe Juárez Admitting Clinician Payers Payer Name Policy Type Policy Number Effective Date Expiration Date S karla MEDICARE PART A AND [id number] 2014 2021 B 00:00:00 00:00:[address] [facility] [id number] 2020 00:00:00 MEDICARE PART A \\T\\ [id number] 2014 B 00:00:00 MEDICAID OF [place] [id number] 2020 00:00:00 [employer] [id number] 2021 (MEDICARE 00:00:00 REPLACEMENT HMO) MEDICARE A B [id number] 2014 00:00:00 [place] [id number] 2016 00:00:00 Problems Condition Condition Condition Status Onset Resolution Last Treating Co mments Source Name Details Category Date Date Treatment Clinician Date AVF AVF Disease Active Univers (arteriove (arteriove 9-29 it y of nous nous 00:00: [place] fistula) fistula) 00 Medica l Branch GASTROPARE GASTROPAR Diagnosis Active 2021-02-10 Memoria HELENA/IBS-D ESISI/IBS- 7-16 21:41:00 l /ANEMIA D/ANEMIA 00:00: Vin Active 00 01/03/2021 [facility] End stage End stage Disease [...] REFRACTORY REFRACTORY 00 GASTRO GASTRO Active 10/14/2020 [facility] Malfunctio Malfunctio Disease Active Overview : Univers n of n of 6-03 Formattin ity of arterioven arterioven 00:00: g of this [place] ous ous 00 note Medical dialysis dialysis might be Bran ch fistula, fistula, different initial initial from the encounter encounter original. Added automatic ally from request for surgery [id number] Candidiasi Candidiasi Disease Active U nivers s of vulva s of vulva 2-18 it y of [place] vagina [place] Screening Screening Disease Active Uni vers for breast for breast 2-18 it y of cancer cancer 00:00: [place] 00 Medical Branch NEW NEW Diagnosis Active 2018-07-26 Mem oria EVALUATION EVALUATION - 09:39:00 l Active 00:00: Vin 07/12/2018 [facility] Pyogenic Pyogenic Disease Active 2017-06 Overview: Un lori granuloma granuloma 0-17 Formattin i ty of of of 00:00: g of this [place] conjunctiv conjunctiv 00 note Me dical a, right a, right might be Bran ch different from the original. Added automatic ally from request for surgery [id number] Right eye Right eye Disease Active Overview: [...] involving for macula, macula, surgery associated associated [id number] with type with type 1 diabetes 1 [...] Added automatic ally from request for surgery [id number] ESRD (end ESRD (end Disease Active Overview: Univers stage stage -12 Formattin ity of renal renal 00:00: g of this [place] disease) disease) 00 note Medica l on on might be Branch dialysis dialysis different from the original. Added automatic ally from request for surgery [id number] Diabetes Diabetes Disease Active Metho di mellitus [...] Added automatic ally from request for surgery [id number] Neovascula Neovascula Disease Active U nivers r r 1-18 ity of glaucoma, glaucoma, [place] Medica [place] Branch Increased Increased Disease Active Uni vers intraocula intraocula 1-18 it y of r pressure r pressure [place] Fall Fall Disease Active 2016-06 Univers 0-13 ity of 00:00: [place] [address] Medical Branch Pneumonia Pneumonia Disease Active 2016-06 Uni vers 0-11 ity of 00:00: [place] [address] Medical Branch Diabetes Diabetes Disease Active 2016-06 Overview: Un lori mellitus mellitus 0-05 Formattin ity of 00:00: g of this [place] 00 note Medical might be Branch different from the original. Added automatic ally from request for surgery [id number] Pseudotumo Pseudotumo Disease Active U nivers r cerebri r cerebri 9-25 ity of 00:00: [place] [address] Medical Branch SANJUANA (acute SANJUANA (acute Disease [facility] injury) injury) 00:00: Medical 00 Center Ulcer of Ulcer of Disease [facility] toe of toe of [facility] left foot left foot 00:00: [facility] 00 Center Hyperglyce Hyperglyce Disease Recurre [...] [facility] emergency emergency 00:00: [facility] 00 Center ACUTE RESP ACUTE Diagnosis Active 2016-09-09 Memoria FAILURE RESP 2-02 09:11:00 l FAILURE 00:00: [place] Active 00 07/23/2016 [facility] CONGESTION CONGESTIO Diagnosis Active 2016-07-24 Memoria AMD N AMD 07-23 01:49:00 l DIARRHEA DIARRHEA 00:00: Jake n Active 00 07/23/2016 [facility] SOB/SWELLI Diagnosis Active 2015-062016-06-10 Memoria NG SOB/SWELLI 08-11 15:48:00 l NG Active 00:00: Vin 06/10/2016 00 [facility] CHF/RENAL CHF/RENAL Diagnosis Active 2015-062016-06-24 Memoria DISEASE DISEASE 08-11 15:35:00 l Active 00:00: [place] 06/10/2016 [facility] Congestive Congestive Disease Active 2015-06 U T heart heart 08-11 Health failure failure 00:00: (CHF) (CHF) 00 Obesity Obesity Disease Active 2015-06 Univers (BMI (BMI 0-12 ity of 30-39.9) 30-39.9) 00:00: [place] [facility] Hyperosmol Hyperosmol Disease Active 2015-06 U jessicaers ar ar 0-12 ity of non-ketoti non-ketoti [place] c state in 00 Me dical patient patient Branch with 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 Hyperglyce Hyperglyce Disease Active 2015-06 U jessicaers maryam maryam 0-11 ity of 00:00: [place] [facility] Diabetic Diabetic Disease Active Unive [...] Active U nivers 5-07 ity of 00:00: [place] [facility] Bipolar 1 Bipolar 1 Disease Active Uni vers disorder disorder 5-07 ity of 00:00: [place] [facility] Suicidal Suicidal Disease Active Unive [...] cancer in cancer in 00 [facility] female female Branch Family Family Disease Active 2014-06 Univers history of history of 1-13 it y of ovarian ovarian 00:00: [place] cancer cancer 00 Medical Branch Galactorrh Galactorrh Disease Active 2014-06 U viviana ea ea 1-13 ity of 00:00: [place] [facility] History of History of Disease [...] SEIZURES 00:00: Jake gonzalez Active 00 06/26/2013 [facility] ABD PAIN ABD PAIN Diagnosis Active 2012-062013-04-19 Memoria Active 0 21:51:00 l 04/14/2013 19:00: Jake gonzalez [address] GASTROPERI GASTROPER Diagnosis Active 2012-09-13 Memoria SIS DAISY 2-12 15:17:00 l Active 00:00: Vin 08/02/2012 00 [facility] ABDOMINAL Diagnosis Active 2012-03-14 Memoria PAIN ABDOMINAL 9 16:56:00 l PAIN 14:00: Vin Active 03/14/2012 [facility] NAUSEA, NAUSEA, Diagnosis Active 2012-03-14 Memoria VOMITING VOMITING 03-14 13:25:00 l Active 08:00: Vin 03/14/[address] [facility] N/V N/V Diagnosis Active 2011-12-08 Mem oria INABILITY INABILITY 11-27 11:14:00 l TO TO 00:00: [place] TOLERATE TOLERATE 00 PO PO Active 11/28/2011 [facility] VOMITTING VOMITTING Diagnosis Active 2011-11-28 Memoria Active 11-27 16:28:00 l 11/28/2011 00:00: Jkae n [address] VOMITTING, VOMITTING Diagnosis Active 2011-09-18 Memoria HIGH BLOOD , HIGH 09-17 09:45:00 l SUGAR BLOOD 00:00: Vin SUGAR 00 Active 09/18/2011 [facility] Methicilli Methicill Problem Active 2021-01-31 Memoria n in 08-31 22:29:25 l resistant resistant 00:00: Herm naeem Staphyloco Staphyloco 00 ccus ccus aureus aureus (organism) (organism) Active 09/01/2011 Problem 01/31/2021 09/01/11 - Elbow wound
Problem added by Discern Expert. [facility] MRSA MRSA Problem Active 2012-03-16 Memor ia Active 08-31 09:11:30 l 09/01/2011 00:00: Jake n Problem 00 03/16/2012 <sup>1</s up>09/01/11 - Elbow wound
<sup>2< /sup>Probl em added by Discern Expert. [facility] VOMITING, VOMITING, Diagnosis Active 2011-09-01 Memoria BLOOD BLOOD 08-30 03:19:00 l SUGAR SUGAR 00:00: Vin READINGS READINGS 00 HIGH HIGH Active 08/31/2011 [facility] ELBOW ELBOW Diagnosis Active 2011-09-10 Mem oria ABSCESS/HY ABSCESS/HY 08-30 16:26:00 l PERGLYCEMI PERGLYCEMI 00:00: Tyrel canales A A Active 00 08/31/2011 [facility] Hypokalemi Hypokalem Problem Active 2012-03-16 Memoria a ia Active 08-22 09:11:30 l 08/23/2011 00:00: Jake gonzalez Problem 00 03/16/2012 [facility] DKA DKA Diagnosis Active 2011-08-24 Mem oria Active 11:27:00 l 08/19/2011 00:00: Jake gonzalez [address] VOMITING VOMITING Diagnosis Active 2011-08-19 Memoria Active 16:21:00 l 08/19/2011 00:00: Jake gonzalez [address] Final: Final: Problem 2016-08-02 Mendoza janice Acute Acute 02:46:22 l respirator respirator He rmann y failure, y failure, unspecifie unspecifie d whether d whether with with hypoxia or hypoxia or hypercapni hypercapni a a 08/02/2016 [facility] Hypoglycem Hypoglyce Problem Inactiv 2012-03-16 Memoria ia maryam e 09:11:30 l Inactive Vin Problem 03/16/2012 [facility] Hypoglycem Hypoglyce Problem Inactiv 2013-04-22 Memoria ia maryam e 04:46:33 l (disorder) (disorder) He rmann Inactive Problem 04/22/2013 [facility] Gastropare Gastropar Problem Resolve 2021-01-31 Memoria sis esis d 22:29:25 l (disorder) (disorder) He rmann Resolved Problem 01/31/2021 [facility] Hypertensi Problem Resolve 2021-01-31 Memoria ve Hypertensi d 22:29:25 l disorder, ve [place] systemic disorder, arterial systemic (disorder) arterial (disorder) Resolved Problem 01/31/2021 [facility] Psychiatri Problem Resolve 2021-01-31 Memoria c Psychiatri d 22:29:25 l behavioral c Jake n disability behavioral (finding) disability (finding) Resolved Problem 01/31/2021 [facility] Seizure Seizure Problem Resolve 2021-01-31 M emoria (finding) (finding) d 22:29:25 l Resolved [place] Problem 01/31/2021 [facility] Hypertensi Hypertens Problem Active 2012-03-16 Memoria on ion Active 09:11:30 l Problem [place] 03/16/2012 [facility] Hypomagnes Hypomagne Problem Active 2013-04-22 Memoria emia semia 04:46:33 l Active [place] Problem 04/22/2013 [facility] Nausea and Nausea Problem Active 2012-03-16 Memoria vomiting and 09:11:30 l vomiting [place] Active Problem 03/16/2012 [facility] ENCNTR FOR ENCNTR Diagnosis Active 2020-12-24 Memoria GENERAL FOR 10:39:00 l ADULT GENERAL Vin MEDICAL ADULT EXAM W/ MEDICAL EXAM W/ Active [facility] DMI DMI Diagnosis Active 2011-08-24 Mem oria KETOACD KETOACD 11:27:00 l UNCONTROLD UNCONTROLD He rmann Active [facility] OTHER OTHER Diagnosis Active 2011-09-10 Mem oria GENERAL GENERAL 16:26:00 l SYMPTOMS SYMPTOMS Jake n Active [facility] HEART HEART Diagnosis Active 2016-06-24 Mem oria FAILURE, FAILURE, 15:35:00 l UNSPECIFIE UNSPECIFIE He rmann D D Active [facility] ACUTE ACUTE Diagnosis Active 2016-09-09 Mem oria RESPIRATOR RESPIRATOR 09:11:00 l Y FAILURE, Y FAILURE, He rmann UNSP W UNSP W HYPOXI HYPOXI Active [facility] Nausea and Nausea Problem Resolve 2021-01-31 2021-01-31 Memoria vomiting and d 6-10 22:29:25 22:29:25 l (disorder) vomiting 00:00: Herm naeem (disorder) 00 Resolved 11/29/2011 Problem 01/31/2021 [facility] Hypokalemi Hypokalem Problem Resolve 2021-01-31 2021-01-31 Memoria a ia d 3-04 22:29:25 22:29:25 l (disorder) (disorder) 00:00: He rmann Resolved 00 08/23/2011 Problem 01/31/2021 [facility] Disorder Disorder Problem Resolve 2021-01-31 2021-01-31 Memoria of of d 3-04 22:29:25 22:29:25 l magnesium magnesium 00:00: Herm naeem metabolism metabolism 00 (disorder) (disorder) Resolved 08/23/2011 Problem 01/31/2021 [facility] Hyperglyce Hyperglyc Problem Resolve 2021-01-31 2021-01-31 Memoria maryam live d 08-19 22:29:25 22:29:25 l (disorder) (disorder) 00:00: He jagdishann Resolved 00 08/20/2011 Problem 01/31/2021 [facility] Ketoacidos Ketoacido Problem Resolve 2021-01-31 2021-01-31 Memmarin is in sis in d 22:29:25 22:29:25 l diabetes diabetes 00:00: Jake gonzalez mellitus mellitus 00 (disorder) (disorder) Resolved 08/19/2011 Problem 01/31/2021 [facility] DKA DKA Problem Resolve 2013-04-22 2013-04-22 Memoria (diabetic (diabetic d 04:46:33 04:46:33 l ketoacidos ketoacidos 00:00: Tyrel thompson) es) 00 Resolved 08/19/2011 Problem 04/22/2013 [facility] History of Past Illness Condition Condition Condition Status Onset Resolution Last Treating Co mments Source Name Details Category Date Date Treatment Clinician Date Discharge Discharge Problem 2014-06-28 2014-06-28 Memmarin Diagnosis: Diagnosis: 06-26 16:34:37 16:34:37 l Gastropare Gastropare 06:00: Tyrel canales sis sis 00 06/26/2014 06/28/2014 [facility] Hyperglyce Hyperglyc Problem Inactiv 2012-03-16 2012-03-16 Memmarin live e 08-19 09:11:30 09:11:30 l Inactive 00:00: Vin 08/20/2011 00 Problem 03/16/2012 [facility] Allergies, Adverse Reactions, Alerts Allergy Allergy [...] 2020-06 Meth frantz Guaiacol ty to Comments) [address] st sulfonat adverse 00:00: Hospita e reaction [...] TAPE-ERIC 2-14 ity of ICONES 00:00: [place] [facility] Nitrofur Propensi Active Other - [...] SL EH ANTOIN 01-03 MONOHYD/ 00:00: M-CRYST Penicill Drug Active [facility] PENICILL Allergy Active [facility] [place] ZOLPIDEM Allergy [facility] [place] LISINOPR Allergy Active Other [facility] [place] [facility]: Medical 00 [place] GUAIFENE Allergy Active Other [facility] SIN [...] s to drug [place] Allergy Active Swelling 2016-0 throatthr [place] [facility] to 6-25 oatthroat Health [...] ay closure penicill Drug Active [facility]. in [facility] lisinopr Drug Active [facility] Ambien Drug Active [facility] Prolixin Drug Active [facility] penicill Drug Active [facility] in [facility] lisinopr Drug Active [facility] Ambien Drug Active [facility] Prolixin Drug Active [facility] Tape Other Active [facility] penicill Drug Active [facility] in [facility] lisinopr Drug Active [facility] Ambien Drug Active [facility] Prolixin Drug Active [facility] codeine Drug Active [facility] penicill Drug Active [facility] lisinopr Drug Active [facility] Ambien Drug Active [facility] Prolixin Drug Active [facility] codeine Drug Active [facility] penicill Drug Active [facility] lisinopr Drug Active [facility] Ambien Drug Active [facility] Prolixin Drug Active [facility] penicill Drug [facility] lisinopr Drug Active [facility] Ambien Drug Active [facility] Prolixin Drug Active [facility] penicill Drug Active [facility] in [facility] lisinopr Drug Active . il [facility] Ambien Drug Active [facility] Prolixin Drug Active [facility] penicill penicill Active Memori a ins ins l [place] codeine codeine Active Memoria l Vin morphine morphine Active Memori a l Vin lisinopr lisinopr Active Memori a il il l Vin Adhesive Adhesive Active Memori a Tape Tape l Vin Ambien Ambien Active Memoria l [place] Prolex Prolex Active Memoria DM DM l [place] Social History Social Habit Start Date Stop Date Quantity Comments Source [facility] History of tobacco Cigarette Smoker [facility] Exposure to Yes [facility] SARS-CoV-2 (event) Hospit al History of Social 2022-08-25 2022-08-[address] function 00:00:00 00:00:00 Hospital Tobacco use and 2021-05-14 2021-05-14 Smokeless [facility] exposure 00:00:00 00:00:00 tobacco non-user Hospital Social History 2020-12-24 2020-12-24 [facility] 15:49:37 15:49:37 Alcohol intake 2017-12-17 2017-12-[address] [facility] 00:[facility]00 00:00:00 non-drinker of Medical Ce nter alcohol (finding) Cigarettes smoked 2017-01-03 2017-01-[address] [facility] current (pack per 00:00:00 00:00:00 [facility] Center day) - Reported Cigarette 2017-01-03 2017-01-[address] [facility] pack-years 00:00:00 00:00:00 [facility] Tobacco Comment 2017-01-03 2017-01-03 [facility]00 she stopped [address] month ago. Sex Assigned At [address] [facility] 00:00:00 00:00:00 [facility] Smoking Status Start Date Stop Date Source Smokes tobacco daily 2021-05-14 00:00:00 [facility] Former smoker 2020-06-27 00:00:00 2020-06-27 00:00:00 [facility] Medications Ordered Filled Start Stop Current Ordering Indication Dosage Frequency Signature Comments Components Source Medication Medication Date Date Medication? Clinician (SIG) Name Name glipiZIDE 2021-0 Yes 5mg Take 5 mg Met hodi (GLUCOTROL) 1-[address] 5 MG tablet 13:02: daily. Hosp jo-ann 39 l calcium 2021-0 Yes 667mg Q.[id number] Take 667 Methodi acetate 1-[id number] (PHOSLO) 13:02: 3D mouth [...] 39 nightly. l calcium 2021-0 Yes 1334mg Q.[id number] Take 1,334 Methodi acetate,domingo 1-18 [id number] mg by s t sphat bind, 13:02: 3D mouth 3 Hos whti (Phoslyra) 39 (three) l 667 mg (169 times a mg day. calcium)/5 mL solution cyproheptad 2021-0 Yes 4mg Q.[id number] Take 4 mg Methodi ine 1-18 [id number] mouth [address] (PERIACTIN) 13:02: 3D (three) Hos whit 4 mg tablet 39 times a l day as needed for allergies. buPROPion 2021-0 Yes 300mg QD Take 300 Met hodi XL 1-[address] (WELLBUTRIN 13:02: mouth Hospi ta XL) 300 MG 39 daily. l 24 hr tablet ascorbic 2021-0 Yes 500mg Q.[id number] Take 500 Methodi acid, 1-[id number] vitamin C, 13:02: 3D mouth 3 Hosp jo-ann (ascorbic 39 (three) l acid with times a sia hips) day. 500 MG tablet clonAZEPAM 2021-0 Yes .5mg Take 0.5 Met hodi (KlonoPIN) 1-[address] 0.5 MG 13:02: mouth as Hospita tablet 39 needed for l anxiety. calcium 2021-0 Yes 1334mg Q.[id number] Take 1,334 Methodi acetate,domingo 1-18 [id number] mg by s t sphat bind, 13:02: 3D mouth 3 Hos whit (Phoslyra) 39 (three) l 667 mg (169 times a mg day. calcium)/5 mL solution cyproheptad 2021-0 Yes 4mg Q.[id number] Take 4 mg Methodi ine 1-[id number] [facility] [address] (PERIACTIN) 13:02: 3D (three) Hos whit 4 mg tablet 39 times a l day as needed for allergies. buPROPion 2021-0 Yes 300mg QD Take 300 Met hodi XL 1-[address] (WELLBUTRIN 13:02: mouth Hospi ta XL) 300 MG 39 daily. l 24 hr tablet ascorbic 2021-0 Yes 500mg Q.[id number] Take 500 Methodi acid, 1-[id number] vitamin C, 13:02: 3D [...] jo-ann 39 l calcium 2021-0 Yes 667mg Q.[id number] Take 667 Methodi acetate 1-[id number] (PHOSLO) 13:02: 3D mouth [...] 39 nightly. l calcium 2021-0 Yes 1334mg Q.[id number] Take 1,334 Methodi acetate,domingo 1-18 [id number] mg by s t sphat bind, 13:02: 3D mouth 3 Hos whit (Phoslyra) 39 (three) l 667 mg (169 times a mg day. calcium)/5 mL solution cyproheptad 2021-0 Yes 4mg Q.[id number] Take 4 mg Methodi ine 1-[id number] mouth [address] (PERIACTIN) 13:02: 3D (three) Hos whit 4 mg tablet 39 times a l day as needed for allergies. buPROPion 2022-0 Yes 300mg QD Take 300 Met hodi XL 1-[address] (WELLBUTRIN 13:02: mouth Hospi ta XL) 300 MG 39 daily. l 24 hr tablet ascorbic 2022-0 Yes 500mg Q.[id number] Take 500 Methodi acid, 1-[id number] vitamin C, 13:02: 3D [...] jo-ann 39 l calcium 2-0 Yes 667mg Q.[id number] Take 667 Methodi acetate 1-[id number] (PHOSLO) 13:02: 3D mouth [...] 39 nightly. l calcium 2021-0 Yes 1334mg Q.[id number] Take 1,334 Methodi acetate,domingo 1-18 [id number] mg by s t sphat bind, 13:02: 3D mouth 3 Hos whit (Phoslyra) 39 (three) l 667 mg (169 times a mg day. calcium)/5 mL solution cyproheptad 0 Yes 4mg Q.[id number] Take 4 mg Methodi ine 1-[id number] (PERIACTIN) 13:02: 3D (three) Hos whit 4 mg tablet 39 times a l day as needed for allergies. buPROPion 2021-0 Yes 300mg QD Take 300 Met hodi XL 1-[address] (WELLBUTRIN 13:02: mouth Hospi ta XL) 300 MG 39 daily. l 24 hr tablet ascorbic 2021-0 Yes 500mg Q.[id number] Take 500 Methodi acid, 1-[id number] vitamin C, 13:02: 3D [...] jo-ann 39 l calcium 2021-0 Yes 667mg Q.[id number] Take 667 Methodi acetate 1-[id number] (PHOSLO) 13:02: 3D mouth [...] 39 nightly. l calcium 2021-0 Yes 1334mg Q.[id number] Take 1,334 Methodi acetate,domingo 1-18 [id number] mg by s t sphat bind, 13:02: 3D mouth 3 Hos whit (Phoslyra) 39 (three) l 667 mg (169 times a mg day. calcium)/5 mL solution cyproheptad 2021-0 Yes 4mg Q.[id number] Take 4 mg Methodi ine 1-[id number] (PERIACTIN) 13:02: 3D (three) Hos whit 4 mg tablet 39 times a l day as needed for allergies. buPROPion 2021-0 Yes 300mg QD Take 300 Met hodi XL 1-[address] (WELLBUTRIN 13:02: mouth Hospi ta XL) 300 MG 39 daily. l 24 hr tablet ascorbic 2-0 Yes 500mg Q.[id number] Take 500 Methodi acid, 1-[id number] vitamin C, 13:02: 3D [...] jo-ann 39 l calcium 2021-0 Yes 667mg Q.[id number] Take 667 Methodi acetate 1-[id number] (PHOSLO) 13:02: 3D mouth [...] 39 nightly. l calcium 2021-0 Yes 1334mg Q.[id number] Take 1,334 Methodi acetate,domingo 1-18 [id number] mg by s t sphat bind, 13:02: 3D mouth 3 Hos whit (Phoslyra) 39 (three) l 667 mg (169 times a mg day. calcium)/5 mL solution cyproheptad 2021-0 Yes 4mg Q.[id number] Take 4 mg Methodi ine 1-[id number] (PERIACTIN) 13:02: 3D (three) Hos whit 4 mg tablet 39 times a l day as needed for allergies. buPROPion 2021-0 Yes 300mg QD Take 300 Met hodi XL 1-[address] (WELLBUTRIN 13:02: mouth Hospi ta XL) 300 MG 39 daily. l 24 hr tablet ascorbic 2021-0 Yes 500mg Q.[id number] Take 500 Methodi acid, 1-[id number] vitamin C, 13:02: 3D [...] jo-ann 39 l calcium 2021-0 Yes 667mg Q.[id number] Take 667 Methodi acetate 1-[id number] (PHOSLO) 13:02: 3D mouth [...] 39 nightly. l calcium 2021-0 Yes 1334mg Q.[id number] Take 1,334 Methodi acetate,domingo 1-18 [id number] mg by s t sphat bind, 13:02: 3D mouth 3 Hos whit (Phoslyra) 39 (three) l 667 mg (169 times a mg day. calcium)/5 mL solution cyproheptad 2021-0 Yes 4mg Q.[id number] Take 4 mg Methodi ine 1-[id number] (PERIACTIN) 13:02: 3D (three) Hos whit 4 mg tablet 39 times a l day as needed for allergies. buPROPion 2021-0 Yes 300mg QD Take 300 Met hodi XL 1-[address] (WELLBUTRIN 13:02: mouth Hospi ta XL) 300 MG 39 daily. l 24 hr tablet ascorbic 2021-0 Yes 500mg Q.[id number] Take 500 Methodi acid, 1-[id number] vitamin C, 13:02: 3D [...] jo-ann 39 l calcium 2021-0 Yes 667mg Q.[id number] Take 667 Methodi acetate 1-[id number] (PHOSLO) 13:02: 3D mouth [...] 39 nightly. l calcium 2022-0 Yes 1334mg Q.64111602 Take 1,334 [facility] acetate,domingo 1-18 [id number] mg by s t sphat bind, 13:02: 3D mouth 3 Hos whit (Phoslyra) 39 (three) l 667 mg (169 times a mg day. calcium)/5 mL solution cyproheptad 2021-0 Yes 4mg Q.42234623 Take 4 mg [facility] ine 1-18 [id number] by mouth [address] (PERIACTIN) 13:02: 3D (three) Hos whit 4 mg tablet 39 times a l day as needed for allergies. buPROPion 2021-0 Yes 300mg QD Take 300 Met hodi XL 1-[address] (WELLBUTRIN 13:02: mouth Hospi ta XL) 300 MG 39 daily. l 24 hr tablet ascorbic 2021-0 Yes 500mg Q.90384260 Take 500 [facility] acid, 1-[id number] vitamin C, 13:02: 3D [...] jo-ann 39 l calcium 2021-0 Yes 667mg Q.66296369 Take 667 [facility] acetate 1-[id number] (PHOSLO) 13:02: 3D mouth [...] 39 nightly. l calcium 2-0 Yes 1334mg Q.12897660 Take 1,334 [facility] acetate,domingo 1-18 [id number] mg by s t sphat bind, 13:02: 3D mouth 3 Hos whit (Phoslyra) 39 (three) l 667 mg (169 times a mg day. calcium)/5 mL solution cyproheptad 2021-0 Yes 4mg Q.41162274 Take 4 mg [facility] ine 1-18 [id number] by mouth [address] (PERIACTIN) 13:02: 3D (three) Hos whit 4 mg tablet 39 times a l day as needed for allergies. buPROPion 2021-0 Yes 300mg QD Take 300 Met hodi XL 1-[address] (WELLBUTRIN 13:02: mouth Hospi ta XL) 300 MG 39 daily. l 24 hr tablet ascorbic 2021-0 Yes 500mg Q.60560830 Take 500 [facility] acid, 1-[address] vitamin C, 13:02: 3D [...] jo-ann 39 l calcium 2021-0 Yes 667mg Q.44417271 Take 667 [facility] acetate 1-[id number] (PHOSLO) 13:02: 3D mouth [...] 39 nightly. l calcium 2021-0 Yes 1334mg Q.52156746 Take 1,334 [facility] acetate,domingo 1-18 [id number] mg by s t sphat bind, 13:02: 3D mouth 3 Hos whit (Phoslyra) 39 (three) l 667 mg (169 times a mg day. calcium)/5 mL solution cyproheptad 2021-0 Yes 4mg Q.59860918 Take 4 mg [facility] ine 1-18 [id number] by mouth [address] (PERIACTIN) 13:02: 3D (three) Hos whit 4 mg tablet 39 times a l day as needed for allergies. buPROPion 2022-0 Yes 300mg QD Take 300 Met hodi XL 1-[address] (WELLBUTRIN 13:02: mouth Hospi ta XL) 300 MG 39 daily. l 24 hr tablet ascorbic 2022-0 Yes 500mg Q.09422762 Take 500 [facility] acid, 1-[id number] vitamin C, 13:02: 3D [...] jo-ann 39 l calcium 2022-0 Yes 667mg Q.92750800 Take 667 [facility] acetate 1-[id number] (PHOSLO) 13:02: 3D mouth [...] 39 nightly. l calcium 0 Yes 1334mg Q.20907572 Take 1,334 [facility] acetate,domingo 1-18 [id number] mg by s t sphat bind, 13:02: 3D mouth 3 Hos whit (Phoslyra) 39 (three) l 667 mg (169 times a mg day. calcium)/5 mL solution cyproheptad 0 Yes 4mg Q.54707026 Take 4 mg [facility] ine 1-18 [id number] [address] mouth [address] (PERIACTIN) 13:02: 3D (three) Hos whit 4 mg tablet 39 times a l day as needed for allergies. buPROPion 0 Yes 300mg QD Take 300 Met hodi XL 1-[address] (WELLBUTRIN 13:02: mouth Hospi ta XL) 300 MG 39 daily. l 24 hr tablet ascorbic 2021-0 Yes 500mg Q.19544986 Take 500 [facility] acid, 1-[id number] vitamin C, 13:02: 3D [...] jo-ann 39 l calcium 202-0 Yes 667mg Q.65603448 Take 667 [facility] acetate 1-[id number] (PHOSLO) 13:02: 3D mouth [...] 39 nightly. l calcium 2021-0 Yes 1334mg Q.84922069 Take 1,334 [facility] acetate,domingo 1-18 [id number] mg by s t sphat bind, 13:02: 3D mouth 3 Hos whit (Phoslyra) 39 (three) l 667 mg (169 times a mg day. calcium)/5 mL solution cyproheptad 0 Yes 4mg Q.22095019 Take 4 mg [facility] ine 1-18 [id number] [address] mouth [address] (PERIACTIN) 13:02: 3D (three) Hos whit 4 mg tablet 39 times a l day as needed for allergies. buPROPion 2021-0 Yes 300mg QD Take 300 Met [facility]odi XL 1-[address] (WELLBUTRIN 13:02: mouth Hospi ta XL) 300 MG 39 daily. l 24 hr tablet ascorbic 2021-0 Yes 500mg Q.74070107 Take 500 [facility] acid, 1-[id number] vitamin C, 13:02: 3D [...] jo-ann 39 l calcium 2021-0 Yes 667mg Q.03630590 Take 667 [facility] acetate 1-[id number] (PHOSLO) 13:02: 3D mouth [...] 39 nightly. l calcium 2021-0 Yes 1334mg Q.56321710 Take 1,334 [facility] acetate,domingo 1-18 [id number] mg by s t sphat bind, 13:02: 3D mouth 3 Hos whit (Phoslyra) 39 (three) l 667 mg (169 times a mg day. calcium)/5 mL solution cyproheptad 2021-0 Yes 4mg Q.68002880 Take 4 mg [facility] ine 1-18 [id number] by mouth [address] (PERIACTIN) 13:02: 3D (three) Hos whit 4 mg tablet 39 times a l day as needed for allergies. buPROPion 2021-0 Yes 300mg QD Take 300 Met [facility]odi XL 1-[address] (WELLBUTRIN 13:02: mouth Hospi ta XL) 300 MG 39 daily. l 24 hr tablet ascorbic 2021-0 Yes 500mg Q.27999400 Take 500 [facility] acid, 1-[id number] vitamin C, 13:02: 3D [...] jo-ann 39 l calcium 2021-0 Yes 667mg Q.00235229 Take 667 [facility] acetate 1-[id number] (PHOSLO) 13:02: 3D mouth [...] 39 nightly. l calcium 2021-0 Yes 1334mg Q.07436922 Take 1,334 [facility] acetate,domingo 1-18 [id number] mg by s t sphat bind, 13:02: 3D mouth 3 Hos whit (Phoslyra) 39 (three) l 667 mg (169 times a mg day. calcium)/5 mL solution cyproheptad 2021-0 Yes 4mg Q.82167377 Take 4 mg [facility] ine 1-18 [id number] [address] mouth [address] (PERIACTIN) 13:02: 3D (three) Hos whit 4 mg tablet 39 times a l day as needed for allergies. buPROPion 2021-0 Yes 300mg QD Take 300 Met [facility]odi XL 1-[address] (WELLBUTRIN 13:02: mouth Hospi ta XL) 300 MG 39 daily. l 24 hr tablet ascorbic 2021-0 Yes 500mg Q.95780522 Take 500 [facility] acid, 1-[id number] vitamin C, 13:02: 3D [...] jo-ann 39 l calcium 2021-0 Yes 667mg Q.51157967 Take 667 [facility] acetate 1-[id number] (PHOSLO) 13:02: 3D mouth [...] 39 nightly. l calcium 2022-0 Yes 1334mg Q.25931414 Take 1,334 [facility] acetate,domingo 1-18 [id number] mg by s t sphat bind, 13:02: 3D mouth 3 Hos whit (Phoslyra) 39 (three) l 667 mg (169 times a mg day. calcium)/5 mL solution cyproheptad 2021-0 Yes 4mg Q.13728925 Take 4 mg [facility] ine 1-18 [id number] [address] mouth [address] (PERIACTIN) 13:02: 3D (three) Hos whit 4 mg tablet 39 times a l day as needed for allergies. buPROPion 2021-0 Yes 300mg QD Take 300 Met [facility]odi XL 1-[address] (WELLBUTRIN 13:02: mouth Hospi ta XL) 300 MG 39 daily. l 24 hr tablet ascorbic 2021-0 Yes 500mg Q.07708887 Take 500 [facility] acid, 1-[id number] vitamin C, 13:02: 3D [...] jo-ann 39 l calcium 2021-0 Yes 667mg Q.53732512 Take 667 [facility] acetate 1-[id number] (PHOSLO) 13:02: 3D mouth [...] 39 nightly. l calcium 2021-0 Yes 1334mg Q.83557545 Take 1,334 [facility] acetate,domingo 1-18 [id number] mg by s t sphat bind, 13:02: 3D mouth 3 Hos whit (Phoslyra) 39 (three) l 667 mg (169 times a mg day. calcium)/5 mL solution cyproheptad 2021-0 Yes 4mg Q.55097518 Take 4 mg [facility] ine 1-18 [id number] [address] mouth [address] (PERIACTIN) 13:02: 3D (three) Hos whit 4 mg tablet 39 times a l day as needed for allergies. buPROPion 2021-0 Yes 300mg QD Take 300 Met hodi XL 1-[address] (WELLBUTRIN 13:02: mouth Hospi ta XL) 300 MG 39 daily. l 24 hr tablet ascorbic 2021-0 Yes 500mg Q.[id number] Take 500 [facility] acid, 1-[id number] vitamin C, 13:02: 3D [...] jo-ann 39 l calcium 2021-0 Yes 667mg Q.[id number] Take 667 [facility] acetate 1-[id number] (PHOSLO) 13:02: 3D mouth [...] 39 nightly. l calcium 0 Yes 1334mg Q.[id number] Take 1,334 [facility] acetate,domingo 1-18 [id number] mg by s t sphat bind, 13:02: 3D mouth 3 Hos hwit (Phoslyra) 39 (three) l 667 mg (169 times a mg day. calcium)/5 mL solution cyproheptad 0 Yes 4mg Q.[id number] Take 4 mg [facility] ine 1-18 [id number] [address] mouth [address] (PERIACTIN) 13:02: 3D (three) Hos whit 4 mg tablet 39 times a l day as needed for allergies. buPROPion 0 Yes 300mg QD Take 300 Met hodi XL 1-[address] (WELLBUTRIN 13:02: mouth Hospi ta XL) 300 MG 39 daily. l 24 hr tablet ascorbic 2022-0 Yes 500mg Q.[id number] Take 500 [facility] acid, 1-[id number] vitamin C, 13:02: 3D [...] jo-ann 39 l calcium 2022-0 Yes 667mg Q.[id number] Take 667 [facility] acetate 1-[id number] (PHOSLO) 13:02: 3D mouth [...] 39 nightly. l calcium 0 Yes 1334mg Q.[id number] Take 1,334 [facility] acetate,domingo 1-18 [id number] mg by s t sphat bind, 13:02: 3D mouth 3 Hos whit (Phoslyra) 39 (three) l 667 mg (169 times a mg day. calcium)/5 mL solution cyproheptad Yes 4mg Q.[id number] Take 4 mg [facility] ine 1-18 [id number] [address] mouth [address] (PERIACTIN) 13:02: 3D (three) Hos whit 4 mg tablet 39 times a l day as needed for allergies. buPROPion 0 Yes 300mg QD Take 300 Met hodi XL 1-[address] (WELLBUTRIN 13:02: mouth Hospi ta XL) 300 MG 39 daily. l 24 hr tablet ascorbic 0 Yes 500mg Q.[id number] Take 500 [facility] acid, 1-[id number] vitamin C, 13:02: 3D [...] jo-ann 39 l calcium 2021-0 Yes 667mg Q.[id number] Take 667 [facility] acetate 1-[id number] (PHOSLO) 13:02: 3D mouth [...] 39 nightly. l calcium 2021-0 Yes 1334mg Q.72644063 Take 1,334 [facility] acetate,domingo 1-18 [id number] mg by s t sphat bind, 13:02: 3D mouth 3 Hos whit (Phoslyra) 39 (three) l 667 mg (169 times a mg day. calcium)/5 mL solution cyproheptad 0 Yes 4mg Q.[id number] Take 4 mg [facility] ine 1-18 [id number] [address] mouth [address] (PERIACTIN) 13:02: 3D (three) Hos whit 4 mg tablet 39 times a l day as needed for allergies. buPROPion 2021-0 Yes 300mg QD Take 300 Met [facility]odi XL 1-[address] (WELLBUTRIN 13:02: mouth Hospi ta XL) 300 MG 39 daily. l 24 hr tablet ascorbic 2021-0 Yes 500mg Q.[id number] Take 500 [facility] acid, 1-[id number] vitamin C, 13:02: 3D [...] jo-ann 39 l calcium 2021-0 Yes 667mg Q.[id number] Take 667 [facility] acetate 1-[id number] (PHOSLO) 13:02: 3D mouth [...] 39 nightly. l calcium 2021-0 Yes 1334mg Q.[id number] Take 1,334 [facility] acetate,domingo 1-18 [id number] mg by s t sphat bind, 13:02: 3D mouth 3 Hos whit (Phoslyra) 39 (three) l 667 mg (169 times a mg day. calcium)/5 mL solution cyproheptad 2021-0 Yes 4mg Q.[id number] Take 4 mg [facility] ine 1-18 [id number] [address] mouth [address] (PERIACTIN) 13:02: 3D (three) Hos whit 4 mg tablet 39 times a l day as needed for allergies. buPROPion 2021-0 Yes 300mg QD Take 300 Met [facility]odi XL 1-[address] (WELLBUTRIN 13:02: mouth Hospi ta XL) 300 MG 39 daily. l 24 hr tablet ascorbic 2021-0 Yes 500mg Q.88353689 Take 500 [facility] acid, 1-[id number] vitamin C, 13:02: 3D [...] jo-ann 39 l calcium 2021-0 Yes 667mg Q.[id number] Take 667 [facility] acetate 1-[id number] (PHOSLO) 13:02: 3D mouth [...] 39 nightly. l calcium 2021-0 Yes 1334mg Q.[id number] Take 1,334 [facility] acetate,domingo 1-18 [id number] mg by s t sphat bind, 13:02: 3D mouth 3 Hos whit (Phoslyra) 39 (three) l 667 mg (169 times a mg day. calcium)/5 mL solution cyproheptad 2021-0 Yes 4mg Q.[id number] Take 4 mg [facility] ine 1-18 [id number] [address] mouth [address] (PERIACTIN) 13:02: 3D (three) Hos whit 4 mg tablet 39 times a l day as needed for allergies. buPROPion 2021-0 Yes 300mg QD Take 300 Met hodi XL 1-[address] (WELLBUTRIN 13:02: mouth Hospi ta XL) 300 MG 39 daily. l 24 hr tablet ascorbic 2021-0 Yes 500mg Q.[id number] Take 500 [facility] acid, 1-[id number] vitamin C, 13:02: 3D [...] jo-ann 39 l calcium 2021-0 Yes 667mg Q.02301129 Take 667 [facility] acetate 1-[id number] (PHOSLO) 13:02: 3D mouth [...] 39 nightly. l calcium 2-0 Yes 1334mg Q.67239096 Take 1,334 [facility] acetate,domingo 1-18 [id number] mg by s t sphat bind, 13:02: 3D mouth 3 Hos whit (Phoslyra) 39 (three) l 667 mg (169 times a mg day. calcium)/5 mL solution cyproheptad 2021-0 Yes 4mg Q.[id number] Take 4 mg [facility] ine 1-18 [id number] [address] mouth [address] (PERIACTIN) 13:02: 3D (three) Hos whit 4 mg tablet 39 times a l day as needed for allergies. buPROPion 2021-0 Yes 300mg QD Take 300 Met hodi XL 1-[address] (WELLBUTRIN 13:02: mouth Hospi ta XL) 300 MG 39 daily. l 24 hr tablet ascorbic 2021-0 Yes 500mg Q.[id number] Take 500 [facility] acid, 1-[id number] vitamin C, 13:02: 3D [...] st 5 MG tablet 13:02: daily. Hosp oj-ann 39 l calcium 2021-0 Yes 667mg Q.[id number] Take 667 [facility] acetate 1-[id number] (PHOSLO) 13:02: 3D mouth [...] 39 nightly. l calcium 2021-0 Yes 1334mg Q.[id number] Take 1,334 [facility] acetate,domingo 1-18 [id number] mg by s t sphat bind, 13:02: 3D mouth 3 Hos whit (Phoslyra) 39 (three) l 667 mg (169 times a mg day. calcium)/5 mL solution cyproheptad 2021-0 Yes 4mg Q.[id number] Take 4 mg [facility] ine 1-18 [id number] [address] mouth [address] (PERIACTIN) 13:02: 3D (three) Hos whit 4 mg tablet 39 times a l day as needed for allergies. buPROPion 2021-0 Yes 300mg QD Take 300 Met hodi XL 1-[address] (WELLBUTRIN 13:02: mouth Hospi ta XL) 300 MG 39 daily. l 24 hr tablet ascorbic 2021-0 Yes 500mg Q.[id number] Take 500 [facility] acid, 1-[id number] vitamin C, 13:02: 3D [...] jo-ann 39 l calcium 2021-0 Yes 667mg Q.64544673 Take 667 [facility] acetate 1-[id number] (PHOSLO) 13:02: 3D mouth [...] 39 nightly. l calcium 2021-0 Yes 1334mg Q.10440963 Take 1,334 [facility] acetate,domingo 1-18 [id number] mg by s t sphat bind, 13:02: 3D mouth 3 Hos whit (Phoslyra) 39 (three) l 667 mg (169 times a mg day. calcium)/5 mL solution cyproheptad 2021-0 Yes 4mg Q.[id number] Take 4 mg [facility] ine 1-18 [id number] [address] mouth [address] (PERIACTIN) 13:02: 3D (three) Hos whit 4 mg tablet 39 times a l day as needed for allergies. buPROPion 2021-0 Yes 300mg QD Take 300 Met hodi XL 1-[address] (WELLBUTRIN 13:02: mouth Hospi ta XL) 300 MG 39 daily. l 24 hr tablet ascorbic 2022-0 Yes 500mg Q.[id number] Take 500 [facility] acid, 1-[id number] vitamin C, 13:02: 3D [...] jo-ann 39 l calcium 2022-0 Yes 667mg Q.[id number] Take 667 [facility] acetate 1-[id number] (PHOSLO) 13:02: 3D mouth [...] 13:02: daily. Hospita tablet 39 l busPIRone Yes 15mg Q.5D Take 15 mg [facility] (BUSPAR) -[address] 7.5 MG 13:02: (two) Hospita tablet 39 times a l day. 2 traZODone Yes 150mg QD Take 150 Met hodi [...] mg at night vancomycin 2020-06- No 750mg Q.03457360 Infuse 750 [facility] 750 mg in 07-08 [id number] mg [address] sodium 00:00: 05:59 3W venous Hospita chloride 00 :00 catheter 3 l 0.9% 250 mL (three) IVPB times a week for 19 days. Administer 3 times weekly in dialysis vancomycin 2020-06- No 750mg Q.04289720 Infuse 750 [facility] 750 mg in 07-08 [id number] mg into a [facility] sodium 00:00: 05:59 3W venous [facility]osp[facility] chloride 00 :00 catheter 3 l 0.9% 250 mL (three) IVPB times a week for 19 days. Administer 3 times weekly in dialysis vancomycin 2020-06- No 750mg Q.58602762 Infuse 750 [facility] 750 mg in 07-08 [id number] mg into a [address] sodium 00:00: 05:59 3W venous [facility] chloride 00 :00 catheter 3 l 0.9% 250 mL (three) IVPB times a week for 19 days. Administer 3 times weekly in dialysis vancomycin 2020-06- No 750mg Q.53158308 Infuse 750 [facility] 750 mg in 07-08 [id number] mg into a [address] sodium 00:00: 05:59 3W venous [facility] chloride 00 :00 catheter 3 l 0.9% 250 mL (three) IVPB times a week for 19 days. Administer 3 times weekly in dialysis vancomycin 2020-06- No 750mg Q.97699528 Infuse 750 [facility] 750 mg in 07-08 [id number] mg into a [address] sodium 00:00: 05:59 3W venous [facility] chloride 00 :00 catheter 3 l 0.9% 250 mL (three) IVPB times a week for 19 days. Administer 3 times weekly in dialysis vancomycin 2020-06- No 750mg Q.66012634 Infuse 750 [facility] 750 mg in 07-08 [id number] mg into a [facility] sodium 00:00: 05:59 3W venous [facility] chloride 00 :00 catheter 3 l 0.9% 250 mL (three) IVPB times a week for 19 days. Administer 3 times weekly in dialysis vancomycin 2020-06- No 750mg Q.52575587 Infuse 750 [facility] 750 mg in 07-08 [id number] mg into a [facility] sodium 00:00: 05:59 3W venous [facility] chloride 00 :00 catheter 3 l 0.9% 250 mL (three) IVPB times a week for 19 days. Administer 3 times weekly in dialysis vancomycin 2020-06- No 750mg Q.19942786 Infuse 750 [facility] 750 mg in 07-08 [id number] mg into a [address] sodium 00:00: 05:59 3W venous [facility] chloride 00 :00 catheter 3 l 0.9% 250 mL (three) IVPB times a week for 19 days. Administer 3 times weekly in dialysis vancomycin 2020-06- No 750mg Q.43954163 Infuse 750 [facility] 750 mg in 07-08 [id number] mg into a [address] sodium 00:00: 05:59 3W venous [facility] chloride 00 :00 catheter 3 l 0.9% 250 mL (three) IVPB times a week for 19 days. Administer 3 times weekly in dialysis vancomycin 2020-06- No 750mg Q.97895870 Infuse 750 [facility] 750 mg in 07-08 [id number] mg into a [facility] sodium 00:00: 05:59 3W venous [facility] chloride 00 :00 catheter 3 l 0.9% 250 mL (three) IVPB times a week for 19 days. Administer 3 times weekly in dialysis vancomycin 2020-06- No 750mg Q.98380778 Infuse 750 [facility] 750 mg in 07-[id number] mg [address] a [address] sodium 00:00: 05:59 3W venous [facility] chloride 00 :00 catheter 3 l 0.9% 250 mL (three) IVPB times a week for 19 days. Administer 3 times weekly in dialysis vancomycin 2020-06- No 750mg Q.17237697 Infuse 750 [facility] 750 mg in 07-08 [id number] mg into a [address] sodium 00:00: 05:59 3W venous [facility] chloride 00 :00 catheter 3 l 0.9% 250 mL (three) IVPB times a week for 19 days. Administer 3 times weekly in dialysis vancomycin 2020-06- No 750mg Q.37859953 Infuse 750 [facility] 750 mg in 07-08 [id number] mg into a [address] sodium 00:00: 05:59 3W venous [facility] chloride 00 :00 catheter 3 l 0.9% 250 mL (three) IVPB times a week for 19 days. Administer 3 times weekly in dialysis HYDROcodone 2020-06 1{tbl} Q6H Take 1 [facility] -acetaminop 06-[address] [facility] ([employer]) 00:00: 05:59 mouth Hosp jo-ann 5-325 mg 00 :00 every 6 l per tablet (six) hours as needed for severe pain for up to 5 days .acute pain. Max Daily Amount: 4 tablets HYDROcodone 2020-06 1{tbl} Q6H Take 1 [facility] -acetaminop - tablet by st [facility] ([employer]) 00:00: 05:59 mouth Hosp jo-ann 5-325 mg 00 :00 every 6 l per tablet (six) hours as needed for severe pain for up to 5 days .acute pain. Max Daily Amount: 4 tablets HYDROcodone 2020-06 1{tbl} Q6H Take 1 [facility] -acetaminop -[address] [facility] ([employer]) 00:00: 05:59 mouth Hosp jo-ann 5-325 mg 00 :00 every 6 l per tablet (six) hours as needed for severe pain for up to 5 days .acute pain. Max Daily Amount: 4 tablets HYDROcodone 2020-06 No 1{tbl} Q6H Take 1 [facility] -acetaminop 2-29 -[address] [facility] ([employer]) 00:00: 05:59 mouth Hosp jo-ann 5-325 mg 00 :00 every 6 l per tablet (six) hours as needed for severe pain for up to 5 days .acute pain. Max Daily Amount: 4 tablets HYDROcodone 2020-06 1{tbl} Q6H Take 1 [facility] -acetaminop 2-29 -[address] [facility] ([employer]) 00:00: 05:59 mouth Hosp jo-ann 5-325 mg 00 :00 every 6 l per tablet (six) hours as needed for severe pain for up to 5 days .acute pain. Max Daily Amount: 4 tablets HYDROcodone 2020-06 1{tbl} Q6H Take 1 [facility] -acetaminop 2-29 -[address] [facility] ([employer]) 00:00: 05:59 mouth Hosp jo-ann 5-325 mg 00 :00 every 6 l per tablet (six) hours as needed for severe pain for up to 5 days .acute pain. Max Daily Amount: 4 tablets HYDROcodone 2020-06 1{tbl} Q6H Take 1 [facility] -acetaminop 2-29 -[address] [facility] ([employer]) 00:00: 05:59 mouth Hosp jo-ann 5-325 mg 00 :00 every 6 l per tablet (six) hours as needed for severe pain for up to 5 days .acute pain. Max Daily Amount: 4 tablets HYDROcodone 2020-06 No 1{tbl} Q6H Take 1 [facility] -acetaminop 2-29 -[address] [facility] ([employer]) 00:00: 05:59 mouth Hosp jo-ann 5-325 mg 00 :00 every 6 l per tablet (six) hours as needed for severe pain for up to 5 days .acute pain. Max Daily Amount: 4 tablets HYDROcodone 2020-06 No 1{tbl} Q6H Take 1 [facility] -acetaminop 2-29 -[address] [facility] ([facility]) 00:00: 05:59 mouth Hosp jo-ann 5-325 mg 00 :00 every 6 l per tablet (six) hours as needed for severe pain for up to 5 days .acute pain. Max Daily Amount: 4 tablets HYDROcodone 2020-06- No [id number] 1{tbl} Q6H Take 1 [facility] -acetaminop 2-29 -[address] [facility] ([facility]) 00:00: 05:59 mouth Hosp jo-ann 5-325 mg 00 :00 every 6 l per tablet (six) hours as needed for severe pain for up to 5 days .acute pain. Max Daily Amount: 4 tablets HYDROcodone 2020-06 No 1{tbl} Q6H Take 1 [facility] -acetaminop 2-29 -[address] [facility] ([facility]) 00:00: 05:59 mouth Hosp jo-ann 5-325 mg 00 :00 every 6 l per tablet (six) hours as needed for severe pain for up to 5 days .acute pain. Max Daily Amount: 4 tablets HYDROcodone 2020-06- No [id number] 1{tbl} Q6H Take 1 [facility] -acetaminop 2-29 -[address] [facility] ([facility]) 00:00: 05:59 mouth Hosp jo-ann 5-325 mg 00 :00 every 6 l per tablet (six) hours as needed for severe pain for up to 5 days .acute pain. Max Daily Amount: 4 tablets HYDROcodone 2020-06 No [id number] 1{tbl} Q6H Take 1 [facility] -acetaminop 2-29 -[address] [facility] ([employer]) 00:00: 05:59 mouth Hosp jo-ann 5-325 mg [...] mg for 30 per tablet days. HYDROcodone 2020-06- No [id number] 2{tbl} Q8H Take 2 [facility] -acetaminop 2-05 12-13 tablets by s t hen ([employer]) 00:00: 05:59 mouth [facility]osp jo-ann 5-325 mg 00 :00 every 8 l per tablet (eight) hours as needed for severe pain for up to 7 days .acute pain. Max Daily Amount: 6 tablets HYDROcodone 2020-0628 2{tbl} Q8H Take 2 [facility] -acetaminop 2-05 12-13 tablets by s t hen ([employer]) 00:00: 05:59 mouth [facility]osp jo-ann 5-325 mg 00 :00 every 8 l per tablet (eight) hours as needed for severe pain for up to 7 days .acute pain. Max Daily Amount: 6 tablets HYDROcodone 2020-06 [id number] 2{tbl} Q8H Take 2 [facility] -acetaminop 2-05 12-13 tablets by s t hen ([employer]) 00:00: 05:59 mouth [facility]osp jo-ann 5-325 mg 00 :00 every 8 l per tablet (eight) hours as needed for severe pain for up to 7 days .acute pain. Max Daily Amount: 6 tablets HYDROcodone 2020-0628 2{tbl} Q8H Take 2 [facility] -acetaminop 2-05 12-13 tablets by s t hen ([employer]) 00:00: 05:59 mouth [facility]osp jo-ann 5-325 mg 00 :00 every 8 l per tablet (eight) hours as needed for severe pain for up to 7 days .acute pain. Max Daily Amount: 6 tablets HYDROcodone 2020-0628 2{tbl} Q8H Take 2 [facility] -acetaminop 2-05 12-13 tablets by s t hen ([employer]) 00:00: 05:59 mouth [facility]osp jo-ann 5-325 mg 00 :00 every 8 l per tablet (eight) hours as needed for severe pain for up to 7 days .acute pain. Max Daily Amount: 6 tablets HYDROcodone 2020-0628 2{tbl} Q8H Take 2 [facility] -acetaminop 2-05 12-13 tablets by s t hen ([employer]) 00:00: 05:59 mouth [facility]osp jo-ann 5-325 mg 00 :00 every 8 l per tablet (eight) hours as needed for severe pain for up to 7 days .acute pain. Max Daily Amount: 6 tablets HYDROcodone 2020-06 2{tbl} Q8H Take 2 [facility] -acetaminop 2-05 12-13 tablets by s t hen ([employer]) 00:00: 05:59 mouth [facility]osp jo-ann 5-325 mg 00 :00 every 8 l per tablet (eight) hours as needed for severe pain for up to 7 days .acute pain. Max Daily Amount: 6 tablets HYDROcodone 2020-06 2{tbl} Q8H Take 2 [facility] -acetaminop 2-05 12-13 tablets by s t hen ([employer]) 00:00: 05:59 mouth [facility]osp jo-ann 5-325 mg 00 :00 every 8 l per tablet (eight) hours as needed for severe pain for up to 7 days .acute pain. Max Daily Amount: 6 tablets HYDROcodone 2020-06 2{tbl} Q8H Take 2 [facility] -acetaminop 2-05 12-13 tablets by s t hen ([employer]) 00:00: 05:59 mouth Hosp jo-ann 5-325 mg 00 :00 every 8 l per tablet (eight) hours as needed for severe pain for up to 7 days .acute pain. Max Daily Amount: 6 tablets HYDROcodone 2020-06 2{tbl} Q8H Take 2 [facility] -acetaminop 2-05 12-13 tablets by s t hen ([employer]) 00:00: 05:59 mouth Hosp j-oann 5-325 mg 00 :00 every 8 l per tablet (eight) hours as needed for severe pain for up to 7 days .acute pain. Max Daily Amount: 6 tablets HYDROcodone 2020-06 2{tbl} Q8H Take 2 [facility] -acetaminop 2-05 12-13 tablets by s t hen ([employer]) 00:00: 05:59 mouth Hosp jo-ann 5-325 mg 00 :00 every 8 l per tablet (eight) hours as needed for severe pain for up to 7 days .acute pain. Max Daily Amount: 6 tablets predniSONE 2020-06 No [id number] Take M ethodi (DELTASONE) 07-18 Prednisone s t 50 mg 00:00: 00:00 50mg 13 Hospita tablet 00 :00 hours, 7 l hours, and 1 hour prior to scheduled procedure on 05/19/2021 for contrast allergy prophylaxi s. predniSONE 2020-06- No [id number] Take M ethodi (DELTASONE) 07-18 12-05 Prednisone s t 50 mg 00:00: 00:00 50mg 13 Hospita tablet 00 :00 hours, 7 l hours, and 1 hour prior to scheduled procedure on 05/19/2021 for contrast allergy prophylaxi s. predniSONE 2020-06- No [id number] Take M ethodi (DELTASONE) 07-18 12-05 Prednisone s t 50 mg 00:00: 00:00 50mg 13 Hospita tablet 00 :00 hours, 7 l hours, and 1 hour prior to scheduled procedure on 05/19/2021 for contrast allergy prophylaxi s. predniSONE 2020-06- No [id number] Take M ethodi (DELTASONE) 07-18 12-05 Prednisone s t 50 mg 00:00: 00:00 50mg 13 [facility] tablet 00 :00 hours, 7 l hours, and 1 hour prior to scheduled procedure on 05/19/2021 for contrast allergy prophylaxi s. predniSONE 2020-06- No [id number] Take M ethodi (DELTASONE) 07-18 12-05 Prednisone s t 50 mg 00:00: 00:00 50mg 13 [facility] tablet 00 :00 hours, 7 l hours, and 1 hour prior to scheduled procedure on 05/19/2021 for contrast allergy prophylaxi s. predniSONE 2020-06- No [id number] Take M ethodi (DELTASONE) 07-18 12-05 Prednisone s t 50 mg 00:00: 00:00 50mg 13 [facility] tablet 00 :00 hours, 7 l hours, and 1 hour prior to scheduled procedure on 05/19/2021 for contrast allergy prophylaxi s. predniSONE 2020-06- No [id number] Take M ethodi (DELTASONE) 07-18 12-05 Prednisone s t 50 mg 00:00: 00:00 50mg 13 [facility] tablet 00 :00 hours, 7 l hours, and 1 hour prior to scheduled procedure on 05/19/2021 for contrast allergy prophylaxi s. predniSONE 2020-06- No [id number] Take M ethodi (DELTASONE) 07-18 12-05 Prednisone s t 50 mg 00:00: 00:00 50mg 13 [facility] tablet 00 :00 hours, 7 l hours, and 1 hour prior to scheduled procedure on 05/19/2021 for contrast allergy prophylaxi s. predniSONE 2020-06- No [id number] Take M ethodi (DELTASONE) 07-18 12-05 Prednisone s t 50 mg 00:00: 00:00 50mg 13 [facility] tablet 00 :00 hours, 7 l hours, and 1 hour prior to scheduled procedure on 05/19/2021 for contrast allergy prophylaxi s. predniSONE 2020-06- No [id number] Take M ethodi (DELTASONE) 07-18 12-05 Prednisone [...] 5mg QD Take 5 mg [facility] (TRADJENTA) -14 05-[address] 5 mg tablet 15:20: [...] by mouth ity of (PROTONIX) 11:08: daily. [place] 20 mg EC 01 Medical tablet Branch [...] tablet by ity of tablet 11:08: mouth [place] 01 daily. Medical Branch divalproex 2020-06 Yes 500mg Take 500 Un lori ER 0-01 mg by ity of (DEPAKOTE 23:08: mouth 2 [place] ER) 500 mg 36 (two) Medical 24 hr times Branch tablet daily. gabapentin 2020-06 Yes 100mg Take 100 Un lori 100 mg 0-01 mg by ity of capsule 23:08: mouth 2 [place] 36 (two) Medical times Branch daily. vitamin C 2020-06 Yes 2000mg Take 2,000 [facility] with sia 0-01 mg by ity of hips 23:08: mouth 2 [place] (VITAMIN C) 36 (two) Medical 1,000 mg times Branch tablet daily. metoprolol 2020-06 Yes 50mg Take 50 mg U nivers tartrate 50 0-01 by mouth ity of mg tablet 23:08: daily. [place] [address] Medical Branch folic 2020-06 Yes 800mg Take 800 Univers acid/vit B 0-01 mg by ity of complex and 23:08: mouth [place] C 36 daily. Medical (DIALYVITE Branch 800 ORAL) linagliptin 2020-06 Yes Take by Uni vers (TRADJENTA) 0-01 mouth. ity of 5 mg tablet 23:08: [address] Branch spironolact 2020-06 Yes 50mg Take 50 mg Univers one 50 mg 0-01 by mouth ity of tablet 23:08: daily. [address] Branch pravastatin 2020-06 Yes 40mg Take 40 mg Univers 40 mg 0-01 by mouth ity of tablet 23:08: daily. [address] Branch mv-mn/iron/ 2020-06 Yes 1{capsu Take 1 U nivers folic 0-01 le} capsule by ity of acid/herb 23:08: mouth [place] 190 36 daily. Medical (VITAMIN D3 Branch COMPLETE ORAL) SERTraline 2020-06 Yes 50mg Take 50 mg U nivers 50 mg 0-01 by mouth ity of tablet 23:08: daily. [address] Branch calcium 2020-06 Yes 667mg Take 667 Unive rs acetate 667 0-01 mg by ity of mg capsule 23:08: mouth 3 [place] (three) Medical times Branch daily with meals. cetirizine 2020-06 Yes 1{tbl} Take 1 Uni vers HCl/pseudoe 0-01 tablet by ity of phedrine 23:08: mouth [place] (ZYRTEC-D 36 daily. Medical ORAL) Branch furosemide 2020-06 Yes 40mg Take 40 mg U nivers 40 mg 0-01 by mouth 2 ity of tablet 23:08: (two) [place] [address] times Medical daily. Branch divalproex 2020-06 Yes 500mg Take 500 Un lori ER 0-01 mg by ity of (DEPAKOTE 23:08: mouth 2 [place] ER) 500 mg 36 (two) Medical 24 hr times Branch tablet daily. gabapentin 2020-06 Yes 100mg Take 100 Un lori 100 mg 0-01 mg by ity of capsule 23:08: mouth 2 [place] [address] (two) Medical times Branch daily. vitamin C 2020-06 Yes 2000mg Take 2,000 Univers with sia 0-01 mg by ity of hips 23:08: mouth 2 [place] (VITAMIN C) (two) Medical 1,000 mg times Branch tablet daily. metoprolol 2020-06 Yes 50mg Take 50 mg U nivers tartrate 50 0-01 by mouth ity of mg tablet 23:08: daily. [address] Branch folic 2020-06 Yes 800mg Take 800 Univers acid/vit B 0-01 mg by ity of complex and 23:08: mouth [place] C 36 daily. Medical (DIALYVITE Branch 800 ORAL) linagliptin 2020-06 Yes Take by Uni vers (TRADJENTA) 0-01 mouth. ity of 5 mg tablet 23:08: [address] Branch spironolact 2020-06 Yes 50mg Take 50 mg Univers one 50 mg 0-01 by mouth ity of tablet 23:08: daily. [address] Branch pravastatin 2020-06 Yes 40mg Take 40 mg Univers 40 mg 0-01 by mouth ity of tablet 23:08: daily. [address] Branch mv-mn/iron/ 2020-06 Yes 1{capsu Take 1 U nivers folic 0-01 le} capsule by ity of acid/herb 23:08: mouth [place] 190 36 daily. Medical (VITAMIN D3 Branch COMPLETE ORAL) SERTraline 2020-06 Yes 50mg Take 50 mg U nivers 50 mg 0-01 by mouth ity of tablet 23:08: daily. [address] Branch calcium 2020-06 Yes 667mg Take 667 Unive rs acetate 667 0-01 mg by ity of mg capsule 23:08: mouth 3 [place] (three) Medical times Branch daily with meals. cetirizine 2020-06 Yes 1{tbl} Take 1 Uni vers HCl/pseudoe 0-01 tablet by ity of phedrine 23:08: mouth [place] (ZYRTEC-D 36 daily. Medical ORAL) Branch furosemide 2020-06 Yes 40mg Take 40 mg U nivers 40 mg 0-01 by mouth 2 ity of tablet 23:08: (two) [place] [address] times Medical daily. Branch BUPROPION 2020-06 300mg [...] janice 8-11 (Same as: l 01:36: Mylicon) [place] Simethicone No Notes: Mendo[place] janice 8-11 (Same as: l 01:36: Mylicon) [place] 00 Simethicone No Notes: Mendo[place] janice 8-11 (Same as: l 01:36: Mylicon) [place] 00 Simethicone No Notes: Mendoza janice 8-11 (Same as: l 01:36: Mylicon) [place] Simethicone No Notes: Mendoza janice 8-11 (Same as: l 01:36: Mylicon) [place] 00 epoetin Yes 2,000 unit Mendoza janice giovanny-epbx 8-10 = 1 mL, l 1999 19:37: IV, [place] units/mL 00 Q-M-W-F, preservativ to be e-free given at injectable post solution Dialysis sessions, 0 Refill(s) epoetin 2020-0 Yes 2,000 unit M[place] janice giovanny-epbx 8-10 = 1 mL, l 1999 19:37: IV, [place] units/mL 00 , preservativ to be e-free given at injectable post solution Dialysis sessions, 0 Refill(s) epoetin 2020-0 Yes 2,000 unit M[place] janice giovanny-epbx 8-10 = 1 mL, l 1999 19:37: IV, [place] units/mL 00 , preservativ to be e-free given at injectable post solution Dialysis sessions, 0 Refill(s) epoetin 2020-0 Yes 2,000 unit Mendo[place] janice giovanny-epbx 8-10 = 1 mL, l 1999 19:37: IV, [place] units/mL 00 , preservativ to be e-free given at injectable post solution Dialysis sessions, 0 Refill(s) epoetin 2020-0 Yes 2,000 unit Mendo[place] janice giovanny-epbx 8-10 = 1 mL, l 1999 19:37: IV, [place] units/mL 00 , preservativ to be e-free given at injectable post solution Dialysis sessions, 0 Refill(s) gabapentin 0 Yes 300 mg [...] Oral 8-10 cap, PO, l Capsule 19:34: Q-F, # Herm naeem 00 13 cap, 0 Refill(s) gabapentin 2020-0 Yes 300 mg = 1 M emoria 300 MG Oral 8-10 cap, PO, l Capsule 19:34: Q-M--, # Herm naeem 00 13 cap, 0 Refill(s) amLODIPine 0 Yes 10 mg = 1 Me moria 10 mg oral 8-10 tab, PO, l tablet 19:33: Daily, # [place] 00 30 tab, 2 Refill(s) busPIRone 0 Yes 7.5 mg = 1 Me moria 7.5 mg oral 8-10 tab, PO, l tablet 19:33: BID, 0 [place] 00 Refill(s) buPROPion 0 Yes 75 mg = 1 Mem oria 75 mg oral 8-10 tab, PO, l tablet 19:33: Daily, # [place] 00 14 tab, 0 Refill(s) amLODIPine 0 Yes 10 mg = 1 Me moria 10 mg oral 8-10 tab, PO, l tablet 19:33: Daily, # [place] 00 30 tab, 2 Refill(s) busPIRone 0 Yes 7.5 mg = 1 Me moria 7.5 mg oral 8-10 tab, PO, l tablet 19:33: BID, 0 Vin 00 Refill(s) buPROPion 2020-0 Yes 75 mg = 1 Mem oria 75 mg oral 8-10 tab, PO, l tablet 19:33: Daily, # [place] 00 14 tab, 0 Refill(s) amLODIPine 0 Yes 10 mg = 1 Me moria 10 mg oral 8-10 tab, PO, l tablet 19:33: Daily, # Vin 00 30 tab, 2 Refill(s) busPIRone 0 Yes 7.5 mg = 1 Me moria 7.5 mg oral 8-10 tab, PO, l tablet 19:33: BID, 0 [place] 00 Refill(s) buPROPion 2020-0 Yes 75 mg = 1 Mem oria 75 mg oral 8-10 tab, PO, l tablet 19:33: Daily, # [place] 14 tab, 0 Refill(s) amLODIPine 2020-0 Yes [...] tab, PO, l tablet 19:33: Daily, # [place] 00 14 tab, 0 Refill(s) amLODIPine Yes [...] Size: 2,000 unit Product Wasted: ____unit Epogen 2020-0 No Notes: 01-27 WASTE: F/P l 22:00: - Red; E [place] 00 Red MEDICIATIO N WASTE Product Size: 2,000 unit Product Wasted: ____unit Epogen No Notes: 01-27 WASTE: F/P l 22:00: - Red; E [place] Red MEDICIATIO N WASTE Product Size: 2,000 [...] mL 01-27 Rate: 20 l 20:28: ml/hr, [place] 00 Infuse over: 50 hr, Route: IV, [...] 15:27:00 CDT, BSA: 1.79 m2, 0 D5NS ,000 No 1,000 mL, Me moria mL 01-27 Rate: 20 l 20:28: ml/hr, [place] 00 Infuse over: 50 hr, Route: IV, Dosing Weight 74.5 kg, Total Volume: 1,000, Start date: 01/27/21 15:28:00 CDT, Duration: 30 day, Stop date: 02/26/21 15:27:00 CDT, BSA: 1.79 m2, 0 D5NS 1,000 No 1,000 mL, Me moria mL 01-27 Rate: 20 l 20:28: ml/hr, [place] 00 Infuse over: 50 hr, Route: IV, [...] 01-27 not exceed l 09:29: 4 gm/day. [place] 00 (Same as: Tylenol) tramadol No Notes: [...] 01-27 not exceed l 09:29: 4 gm/day. [place] 00 (Same as: Tylenol) tramadol No Notes: [...] 01-27 not exceed l 09:29: 4 gm/day. [place] 00 (Same as: Tylenol) tramadol No Notes: Not Mem oria hydrochlori 01-27 to exceed l de 50 MG 09:29: 400mg/day. Her braden Oral Tablet 00 (Same As: Ultram) heparin No Notes: Memoria 01-27 porcine l 02:00: heparin [place] 00 heparin No Notes: Memoria 01-27 porcine l 02:00: heparin [place] 00 heparin No Notes: Memoria 01-27 porcine l 02:00: heparin [place] 00 heparin No Notes: Memoria 01-27 porcine l 02:00: heparin [place] 00 heparin No Notes: Memoria 01-27 porcine l 02:00: heparin [place] 00 Magnesium No Notes: Memori a Oxide 01-23 (Same as: l 22:54: Mag-Ox [place] 00 400) Magnesium oxide 480sb=427l g elemental magnesium Dose=____m g magnesium oxide (___mg elemental magnesium) Magnesium No Notes: Memori a Oxide 01-23 (Same as: l 22:54: Mag-Ox [place] 00 400) Magnesium oxide 805mf=738r g elemental magnesium Dose=____m g magnesium oxide (___mg elemental magnesium) Magnesium No Notes: Memori a Oxide 01-23 (Same as: l 22:54: Mag-Ox [place] 00 400) Magnesium oxide 711yy=581w g elemental magnesium Dose=____m g magnesium oxide (___mg elemental magnesium) Magnesium No Notes: Memori a Oxide 01-23 (Same as: l 22:54: Mag-Ox [place] 00 400) Magnesium oxide 377yx=140z g elemental magnesium Dose=____m g magnesium oxide (___mg elemental magnesium) Magnesium No Notes: Memori a Oxide 8-05 (Same as: l 22:54: Mag-Ox 400) Magnesium oxide 229hk=176j g elemental magnesium Dose=____m g magnesium oxide (___mg elemental magnesium) Coreg No Notes: Memoria 8-05 Give with l 02:00: food. [place] 00 (Same As: Coreg) Coreg No Notes: Memoria 8-05 Give with l 02:00: food. [place] 00 (Same As: Coreg) Coreg No Notes: [...] Memoria 8-04 (Same As: l 22:00: BuSpar) [place] 00 Buspar No Notes: Memoria 8-04 (Same As: l 22:00: BuSpar) [place] Buspar No Notes: Memoria 8-04 (Same As: l 22:00: BuSpar) [place] 00 Buspar No Notes: Memoria 8-04 (Same [...] Memoria 8-04 (Same as: l 16:47: Norvasc) [place] 00 Norvasc No Notes: Memoria 8-04 (Same [...] D3 No Notes: Memor ia 5000 intl -04 Same as : l units oral 14:00: [...] Zoloft) pantoprazol No Notes: For Memoria e - [...] Memoria 8-04 (Same as: l 09:44: Sublimaze) [place] 00 Preservati ve free. Tramadol No Notes: Not Mem oria 8-04 to exceed l 09:44: 400mg/day. Vin 00 (Same As: Ultram) Tylenol No Notes: Do Memor ia 8-04 not exceed l 09:44: 4 gm/day. Vin 00 (Same as: Tylenol) Fentanyl No Notes: Memoria 8-04 (Same as: l 09:44: Sublimaze) [place] 00 Preservati ve free. Fentanyl No Notes: Memoria 8-04 (Same as: l 04:46: Sublimaze) [place] 00 Preservati ve free. Fentanyl No Notes: Memoria 8-04 (Same as: l 04:46: Sublimaze) Vin 00 Preservati ve free. Fentanyl No Notes: Memoria 8-04 (Same as: l 04:46: Sublimaze) [place] 00 Preservati ve free. Fentanyl No Notes: Memoria 8-04 (Same as: l 04:46: Sublimaze) Vin 00 Preservati ve free. Fentanyl No Notes: Memoria 8-04 (Same as: l 04:46: Sublimaze) [place] 00 Preservati ve free. Fentanyl 0 No Notes: Memoria 8-04 (Same as: l 02:01: Sublimaze) Vin 00 Preservati ve free. Fentanyl 0 No Notes: Memoria 8-04 (Same as: l 02:01: Sublimaze) [place] 00 Preservati ve free. Fentanyl 0 No Notes: Memoria 8-04 (Same as: l 02:01: Sublimaze) [place] 00 Preservati ve free. Fentanyl 2021-0 No Notes: Memoria 8-04 (Same as: l 02:01: Sublimaze) [place] 00 Preservati ve free. Fentanyl No Notes: Memoria 8-04 (Same as: l 02:01: Sublimaze) Vin 00 Preservati ve free. Coreg No Notes: Memoria 8-04 Give with l 02:00: food. [place] (Same As: Coreg) Saline No Notes: Memoria Flush 0.9% 8-04 Same as: l 02:00: BD Vin 00 Posiflush Sterile Valproate No 1,000 mg, Mem oria 8-04 2 tab, l 02:00: Route: PO, [place] Drug form: ERTAB, Bedtime, Start date: 01/21/21 21:00:00 CDT, Duration: 30 day, Stop date: 02/19/21 21:00:00 CDT, 0 Coreg No Notes: Memoria 8-04 Give with l 02:00: food. [place] 00 (Same As: Coreg) Saline No Notes: Memoria Flush 0.9% 8-04 Same as: l 02:00: BD [place] 00 Posiflush Sterile Valproate No 1,000 mg, Mem oria 8-04 2 tab, l 02:00: Route: PO, Vin 00 Drug form: ERTAB, Bedtime, Start date: 01/21/21 21:00:00 CDT, Duration: 30 day, Stop date: 02/19/21 21:00:00 CDT, 0 Coreg No Notes: Memoria 8-04 Give with l 02:00: food. Vin 00 (Same As: Coreg) Saline No Notes: Memoria Flush 0.9% 8-04 Same as: l 02:00: BD [place] 00 Posiflush Sterile Valproate No 1,000 mg, Mem oria 8-04 2 tab, l 02:00: Route: PO, [place] 00 Drug form: ERTAB, Bedtime, Start date: 01/21/21 21:00:00 CDT, Duration: 30 day, Stop date: 02/19/21 21:00:00 CDT, 0 Coreg 2020-0 No Notes: Memoria 8-04 Give with l [...] Stop date: 02/19/21 21:00:00 CDT, 0 Coreg 0 No Notes: Memoria 8-04 Give with l 02:00: food. [place] 00 (Same As: Coreg) Saline No Notes: Memoria Flush 0.9% 01-22 Same as: l 02:00: BD [place] 00 Posiflush Sterile Valproate No 1,000 mg, Mem oria 8-04 2 tab, l 02:00: Route: PO, [place] 00 Drug form: ERTAB, Bedtime, Start date: 01/21/21 21:00:00 CDT, Duration: 30 day, Stop date: 02/19/21 21:00:00 CDT, 0 heparin 2020-0 No Notes: Memoria 8-03 porcine l 21:00: heparin [place] 00 heparin No Notes: Memoria -03 porcine l 21:00: heparin [place] 00 heparin 2020-0 No Notes: Memoria 8-03 porcine l 21:00: heparin [place] 00 heparin 0 No Notes: Memoria 8-03 porcine l 21:00: heparin [place] 00 heparin 2020-0 No Notes: Memoria -03 porcine l 21:00: heparin [place] Dextrose No 12.5 gm, Memor ia 50% Syringe 01-21 25 mL, l (D50W) 20:01: Route: [place] 00 IVP, Drug Form: INJ, Dosing Weight 74.5, kg, PRN, PRN Blood Glucose Results, Start date: 01/21/21 15:01:00 CDT, Duration: 30 day, Stop date: 02/20/21 15:00:00 CDT, 0 Glucagon 202-0 No 1 mg, Memoria 8- Route: IM, l 20:01: Drug form: [place] 00 PDR/INJ, PRN, Dosing Weight 74.5, kg, [...] Lispro 8-03 (Same as: l 20:01: Humalog) [place] 00 Roll in palms of hands gently; [...] 0 Insulin 2020-0 No Notes: Memoria Lispro - (Same as: l 20:01: Humalog) [place] 00 Roll in palms of hands gently; Do not shake vigorously . WASTE: F/P - Black; E - Municipal Trash Bin Stable for 28 days at room temperatur e. Expires in days from ____Date Dextrose No 12.5 gm, Memor ia 50% Syringe 01-21 25 mL, l (D50W) 20:01: Route: [place] IVP, Drug Form: INJ, Dosing Weight 74.5, [...] No Notes: Memor ia 300 MG Oral 8-03 (Same as: l Capsule 19:58: Neurontin) naeem gabapentin No Notes: Memor ia 300 MG Oral 8-03 (Same as: l Capsule 19:58: Neurontin) naeem gabapentin No Notes: Memor ia 300 MG Oral 8-03 (Same as: l Capsule 19:58: Neurontin) naeem gabapentin No Notes: Memor ia 300 MG Oral 8-03 (Same as: l Capsule 19:58: Neurontin) Herm naeem gabapentin No Notes: Memor ia 300 MG Oral 8-03 (Same as: l Capsule 19:58: Neurontin) Cardene 40 No Notes: Memor ia mg in NS 01-21 Same as: l 200 mL 18:26: Cardene [place] (Titrate.) 00 Concentrat IV 40 mg ion: [...] Same as: l 200 mL 18:26: Cardene [place] (Titrate.) 00 Concentrat IV 40 mg ion: (0.2 mg /1 ml ) Cardene 40 No Notes: Memor ia mg in NS 01-21 Same as: l 200 mL 18:26: Cardene Vin (Titrate.) 00 Concentrat IV 40 mg ion: (0.2 mg /1 ml ) Cyproheptad 0 No 4 mg, 1 Mem oria ine [...] ine 8-03 tab, l 18:00: Route: PO, [place] 00 Drug form: TAB, TID, Dosing Weight 72, kg, Start date: 01/21/21 13:00:00 CDT, Duration: 30 day, Stop date: 02/20/21 9:00:00 CDT Cyproheptad 0 No 4 mg, 1 Mem oria ine 8-03 tab, l 18:00: Route: PO, [place] 00 Drug form: TAB, TID, Dosing Weight 72, kg, Start date: 01/21/21 13:00:00 CDT, Duration: 30 day, Stop date: 02/20/21 9:00:00 CDT Cyproheptad 0 No 4 mg, 1 Mem oria ine 8-03 tab, l 18:00: Route: PO, [place] 00 Drug form: TAB, TID, Dosing Weight 72, kg, Start date: 01/21/21 13:00:00 CDT, Duration: 30 day, Stop date: 02/20/21 9:00:00 CDT Albuterol No Notes: SEE Pr moria 8-03 RT l 17:49: DOCUMENTAT [place] 00 ION (Same as: Proventil) Albuterol No Notes: SEE Pr moria 8- RT l 17:49: DOCUMENTAT [place] 00 ION (Same as: Proventil) Albuterol No Notes: SEE Pr moria 8-03 RT l 17:49: DOCUMENTAT Vin 00 ION (Same as: Proventil) Albuterol No Notes: SEE Pr moria 8-03 RT l 17:49: DOCUMENTAT [place] 00 ION (Same as: Proventil) Albuterol No Notes: SEE Pr moria 8-03 RT l 17:49: DOCUMENTAT [place] 00 ION (Same as: Proventil) albuterol 0 [...] 0.9% 01-21 Same as: l 17:31: BD [place] 00 Posiflush Sterile propofol 10 No Notes: If M emoria mg/mL 01-21 Diprivan - l (Titrate.) 17:31: change Nidia nn IV 1,000 mg 00 bottle & tubing every 12 hr Per state nursing law propofol can only be given by a nurse if patient is intubated or being intubated (unless the nurse is a EXPLORATION MANAGER). Same as: Diprivan Nystatin No Notes: Memoria 100 UNT/MG 8-03 (Same l Topical 17:31: as:Mycosta Herm naeem Powder 00 tin, Nilstat) For external use only. Saline No Notes: Memoria Flush 0.9% 8-03 Same as: l 17:31: BD [place] 00 Posiflush Sterile propofol No Notes: If M emoria mg/mL 8-03 Diprivan - l (Titrate.) 17:31: change Nidia nn IV 1,000 mg 00 bottle & tubing every 12 hr Per state nursing law propofol can only be given by a nurse if patient is intubated or being intubated (unless the nurse is a EXPLORATION MANAGER). Same as: Diprivan Nystatin No Notes: [...] being intubated (unless the nurse is a EXPLORATION MANAGER). Same as: Diprivan Nystatin No Notes: Memoria 100 UNT/MG 8-03 (Same l Topical 17:31: as:Mycosta Herm naeem Powder 00 tin, Nilstat) For external use only. Saline No Notes: Memoria Flush 0.9% 8-03 Same as: l 17:31: BD [place] 00 Posiflush Sterile propofol No Notes: If M emoria mg/mL 8-03 Diprivan - l (Titrate.) 17:31: change Nidia nn IV 1,000 mg 00 bottle & tubing every 12 hr Per state nursing law propofol can only be given by a nurse if patient is intubated or being intubated (unless the nurse is a EXPLORATION MANAGER). Same as: Diprivan Nystatin No Notes: Memoria 100 UNT/MG 01-21 (Same l Topical 17:31: as:Mycosta Herm naeem Powder 00 tin, Nilstat) For external use only. Saline No Notes: Memoria Flush 0.9% 01-21 Same as: l 17:31: BD [place] 00 Posiflush Sterile propofol 10 No Notes: If M emoria mg/mL 01-21 Diprivan - l (Titrate.) 17:31: change Nidia nn IV 1,000 mg 00 bottle & tubing every 12 hr Per state nursing law propofol can only be given by a nurse if patient is intubated or being intubated (unless the nurse is a EXPLORATION MANAGER). Same as: Diprivan midazolam No Route: IV, Me moria (ANES) 01-21 Drug form: l 17:18: SOLN, Vin 00 ONCE, Stop date: 01/21/21 12:18:00 CDT fentaNYL No Route: IV, Mem oria (ANES) 01-21 Drug form: l 17:18: INJ, ONCE, [place] Stop date: 01/21/21 12:18:00 CDT niCARdipine No Route: IV, Memoria (ANES) 01-21 Drug form: l 17:18: INJ, ONCE, [place] Stop date: 01/21/21 12:18:00 CDT midazolam No Route: IV, Me moria (ANES) 01-21 Drug form: l 17:18: SOLN, Vin 00 ONCE, Stop date: 01/21/21 12:18:00 CDT fentaNYL No Route: IV, Mem oria (ANES) 01-21 Drug form: l 17:18: INJ, ONCE, [place] Stop date: 01/21/21 12:18:00 CDT niCARdipine No Route: IV, Memoria (ANES) 01-21 Drug form: l 17:18: INJ, ONCE, Vin Stop date: 01/21/21 12:18:00 CDT midazolam No [...] ONCE, Stop date: 01/21/21 12:18:00 CDT midazolam 0 No Route: IV, Me moria (ANES) [...] ONCE, Stop date: 01/21/21 11:09:00 CDT phenylephri 202-0 No Route: IV, Memoria ne (ANES) 01-21 Drug form: l 16:09: INJ, ONCE, Stop date: 01/21/21 11:09:00 CDT ePHEDrine 2020-0 No Route: IV, Me moria (ANES) 01-21 Drug form: l 16:09: INJ, ONCE, Stop date: 01/21/21 11:09:00 CDT phenylephri 202-0 No Route: IV, Memoria ne (ANES) 01-21 Drug form: l 16:09: INJ, ONCE, Stop date: 01/21/21 11:09:00 CDT ePHEDrine 2020-0 No Route: IV, Me moria (ANES) 01-21 Drug form: l 16:09: INJ, ONCE, Stop date: 01/21/21 11:09:00 CDT phenylephri 202-0 No Route: IV, Memoria ne (ANES) 01-21 Drug form: l 16:09: INJ, ONCE, Stop date: 01/21/21 11:09:00 CDT ePHEDrine 2020-0 No Route: IV, Me moria (ANES) 01-21 Drug form: l 16:09: INJ, ONCE, Stop date: 01/21/21 11:09:00 CDT phenylephri 202-0 No Route: IV, Memoria ne (ANES) 01-21 Drug form: l 16:09: INJ, ONCE, Stop date: 01/21/21 11:09:00 CDT ePHEDrine 2020-0 No Route: IV, Me moria (ANES) 01-21 Drug form: l 16:09: INJ, ONCE, Stop date: 01/21/21 11:09:00 CDT phenylephri 202-0 No Route: IV, Memoria ne (ANES) 01-21 Drug form: l 16:09: INJ, ONCE, Stop date: 01/21/21 11:09:00 CDT lidocaine 2020-0 No Route: IV, Me moria (ANES) 01-21 Drug form: l 14:51: INJ, ONCE, Stop date: 01/21/21 9:51:00 CDT propofol 202-0 No Route: IV, Mem oria (ANES) 01-21 Drug form: l 14:51: INJ, ONCE, Stop date: 01/21/21 9:51:00 CDT lidocaine 202-0 No Route: IV, Me moria (ANES) 01-21 Drug form: l 14:51: INJ, ONCE, Stop date: 01/21/21 9:51:00 CDT propofol 202-0 No Route: IV, Mem oria (ANES) 01-21 Drug form: l 14:51: INJ, ONCE, Stop date: 01/21/21 9:51:00 CDT lidocaine 202-0 No Route: IV, Me moria (ANES) 01-21 Drug form: l 14:51: INJ, ONCE, Stop date: 01/21/21 9:51:00 CDT propofol 202-0 No Route: IV, Mem oria (ANES) 01-21 Drug form: l 14:51: INJ, ONCE, Stop date: 01/21/21 9:51:00 CDT lidocaine 202-0 No Route: IV, Me moria (ANES) 01-21 Drug form: l 14:51: INJ, ONCE, Stop date: 01/21/21 9:51:00 CDT propofol 2021-0 No Route: IV, Mem oria (ANES) 01-21 Drug form: l 14:51: INJ, ONCE, Stop date: 01/21/21 9:51:00 CDT lidocaine 202-0 No Route: IV, Me moria (ANES) 01-21 Drug form: l 14:51: INJ, ONCE, Stop date: 01/21/21 9:51:00 CDT propofol 202-0 No Route: IV, Mem oria (ANES) 01-21 Drug form: l 14:51: INJ, ONCE, Stop date: 01/21/21 9:51:00 CDT propofol 2021-0 No Route: IV, Mem oria (ANES) 10 [...] CDT, Stop date: 01/21/21 10:20:00 CDT propofol 2020- No Route: IV, Mem oria (ANES) 10 [...] 10:17:00 CDT Hydralazine No Notes: Mendoza janice 8- (Same [...] as: Proventil) Ondansetron No Notes: Mendoza janice 8-03 (Same as: l 13:16: Zofran) Vin 00 MEDICATION WASTE Product Size: 4 mg Product Wasted: ___ mg Promethazin No Notes: Do M emoria e 01-21 not give l 13:16: IV push. Vin 00 (Same as: Phenergan) Simethicone No Notes: Mendoza janice 01-21 (Same as: l 13:16: Mylicon, [place] Phazyme, Genasyme) Hydralazine No Notes: Mendoza janice [...] as: Phenergan) Simethicone No Notes: Mendoza janice - (Same as: l 13:16: Mylicon, [place] 00 Phazyme, Genasyme) Hydralazine No Notes: Mendoza [...] 01-21 not give l 13:16: IV push. [place] 00 (Same as: Phenergan) Simethicone No Notes: Mendoza janice 8 (Same as: l 13:16: Mylicon, [place] 00 Phazyme, Genasyme) Hydralazine No Notes: Mendoza [...] janice 01-21 (Same as: l 13:16: Mylicon, [place] 00 Phazyme, Genasyme) Hydralazine No Notes: Mendoza [...] l MG Oral 12:59: ns, 1 cap Nidai nn Capsule 00 PO with meals, 0 Refill(s) calcium No See Memoria acetate 667 8-03 Instructio l MG Oral 12:59: ns, 1 cap Nidia nn Capsule 00 PO with meals, 0 Refill(s) calcium 2020-0 No See Memoria acetate 667 8-03 Instructio l MG Oral 12:59: ns, 1 cap Nidia nn Capsule 00 PO with meals, 0 Refill(s) Calcium 2020-0 Yes 667mg Take 667 UT Acetate 667 7-16 mg by Health MG tablet 13:04: mouth 4 35 (four) times a day if needed. furosemide 2020-0 Yes 40mg Q.5D Take 40 mg U [...] (one) time 11 each day. Xifaxan 550 2020-0 Yes 1{tbl} QD Take 1 UT MG tablet 7-07 tablet by Healt [facility] 00:00: mouth 1 00 (one) time each day. rifaximin 2020-0 Yes 550 mg = 1 Me moria 550 MG Oral 7-06 tab, PO, l Tablet 18:46: TID, # 42 Jake n [XIFAXAN] 00 tab, 2 Refill(s), Pharmacy: [facility], 154.94, cm, 12/24/20 10:43:00 CDT, Height, 71.818, kg, 12/24/20 10:43:00 CDT, Weight rifaximin 2020-0 Yes 550 mg = 1 Me moria 550 MG Oral 7-06 tab, PO, l Tablet 18:46: TID, # 42 Jake n [XIFAXAN] 00 tab, 2 Refill(s), Pharmacy: [facility], 154.94, cm, 12/24/20 10:43:00 CDT, Height, 71.818, kg, 12/24/20 10:43:00 CDT, Weight rifaximin 2020-0 Yes 550 mg = 1 Me moria 550 MG Oral 7-06 tab, PO, l Tablet 18:46: TID, # 42 Jake n [XIFAXAN] 00 tab, 2 Refill(s), Pharmacy: [facility], 154.94, cm, 12/24/20 10:43:00 CDT, Height, 71.818, kg, 12/24/20 10:43:00 CDT, Weight rifaximin 2020-0 Yes 550 mg = 1 Me moria 550 MG Oral 7-06 tab, PO, l Tablet 18:46: TID, # 42 Jake n [XIFAXAN] 00 tab, 2 Refill(s), Pharmacy: [facility], 154.94, cm, 12/24/20 10:43:00 CDT, Height, 71.818, kg, 12/24/20 10:43:00 CDT, Weight rifaximin 2020-0 Yes 550 mg = 1 Me moria 550 MG Oral 7-06 tab, PO, l Tablet 18:46: TID, # 42 Jake n [XIFAXAN] 00 tab, 2 Refill(s), Pharmacy: [facility], 154.94, cm, 12/24/20 [...] 0.257 Refill(s), MEQ/ML Oral Pharmacy: Solution) } [facility] [Suprep 808, Bowel Prep 154.94, [...] 0.257 Refill(s), MEQ/ML Oral Pharmacy: Solution) } [facility] [Suprep 808, Bowel Prep 154.94, Kit] [...] 0.257 Refill(s), MEQ/ML Oral Pharmacy: Solution) } [facility] [Suprep 808, Bowel Prep 154.94, Kit] [...] 0.257 Refill(s), MEQ/ML Oral Pharmacy: Solution) } [facility] [Suprep 808, Bowel Prep 154.94, Kit] [...] day, # 90 tab, 3 Refill(s), Pharmacy: [facility], 154.94, cm, 12/24/20 10:43:00 CDT, Height, 71.818, kg, 12/24/20 10:43:00 CDT, Weight cyproheptad 2020-0 Yes 4 mg = 1 Me moria ine 4 mg 7-06 tab, PO, l oral tablet 18:10: TID, X 30 H ermann 00 day, # 90 tab, 3 Refill(s), Pharmacy: [facility], 154.94, cm, 12/24/20 10:43:00 CDT, Height, 71.818, kg, 12/24/20 10:43:00 CDT, Weight cyproheptad 2020-0 Yes 4 mg = 1 Me moria ine 4 mg 7-06 tab, PO, l oral tablet 18:10: TID, X 30 H ermann 00 day, # 90 tab, 3 Refill(s), Pharmacy: [facility], 154.94, cm, 12/24/20 10:43:00 CDT, Height, 71.818, kg, 12/24/20 10:43:00 CDT, Weight cyproheptad 2020-0 Yes 4 mg = 1 Me moria ine 4 mg 7-06 tab, PO, l oral tablet 18:10: TID, X 30 H erm 00 day, # 90 tab, 3 Refill(s), Pharmacy: [facility], 154.94, cm, 12/24/20 10:43:00 CDT, Height, 71.818, kg, 12/24/20 10:43:00 CDT, Weight cyproheptad 0 Yes 4 mg = 1 Me moria ine 4 mg 7-06 tab, PO, l oral tablet 18:10: TID, X 30 H erm 00 day, # 90 tab, 3 Refill(s), Pharmacy: [facility], 154.94, cm, 12/24/20 10:43:00 CDT, Height, 71.818, kg, 12/24/20 10:43:00 CDT, Weight Zinc 0 Yes 140 mg, [facility] 7-06 PO, Daily, l 15:54: 0 Vin 00 Refill(s) Elderberry 0 Yes 0 [facility] preparation 7-06 Refill(s) l 15:54: [place] 00 Zinc 2020-0 Yes 140 mg, [facility] 7-06 PO, Daily, l 15:54: 0 [place] 00 Refill(s) Elderberry 0 Yes 0 [facility] preparation 7-06 Refill(s) l 15:54: [place] 00 Zinc 2020-0 Yes 140 mg, [facility]oria 7-06 PO, Daily, l 15:54: 0 Vin 00 Refill(s) Elderberry 0 Yes 0 [facility] preparation 7-06 Refill(s) l 15:54: [place] 00 Zinc 2020-0 Yes 140 mg, [facility] 7-06 PO, Daily, l 15:54: 0 Vin 00 Refill(s) Elderberry 2020-0 Yes 0 [facility] preparation 7-06 Refill(s) l 15:54: [place] 00 Zinc 2020-0 Yes 140 mg, Memoria [...] Take 300 UT XL 6-19 mg by [facility] [place] (Wellbutrin 00:00: mouth 1 XL) 300 MG 00 (one) time 24 hr each day tablet in the morning. metoprolol Yes 1{tbl} QD Take 1 UT [facility] (Toprol-XL) 00 (one) time 50 MG 24 hr each day. tablet ascorbic Yes 500mg Q.[id number] Take 500 UT acid 5-15 [id number] mg by [facility] (Vitamin C) 00:00: 3D mouth 3 500 [...] 00 [facility] GLIPIZIDE 5 0 Yes [id number] TAKE 1 [facility] mg tablet -06 TABLET [...] mouth at [place] 00 bedtime. [facility] doxazosin 4 Yes 4mg Take 1 [facility] ers mg tablet -07 tablet by ity o f 00:00: mouth at [place] 00 bedtime. Medical [facility] glipiZIDE 5 2019-06- No [id number] 5mg Take 1 [facility] mg tablet 1 04-06 tablet by ity of 00:00: 00:00 [...] by ity of tablet 00:00: mouth at [place] [address] bedtime. Medical Branch traZODone Yes 150mg Take 150 Uni vers 150 mg 8-13 mg by ity of tablet 00:00: mouth at [place] [address] bedtime. Medical Branch erythromyci 2020- No [id number] .5[in_u Place 0.5 Univers n 5 mg/gram [...] as ophthalmic needed for drops Dry eyes. meclizine 2017- Yes 12.5mg Take 12.5 C [...] l 59 Center hydrALAZINE 2017-0 Yes 100mg Q.05209935 Take [address] [facility] (APRESOLINE 7-20 [id number] mg by L ukes ) 100 MG 15:20: 3D mouth 3 Medica l tablet 59 (three) Center times daily. magnesium 2017-0 Yes 400mg QD Take [address] [facility] oxide 7-20 mg by [facility] (MAG-OX) 15:20: mouth Medical 400 mg 59 daily. Center tablet metoclopram 2017-0 Yes 10mg Q.77795069 Take [address] [facility] gadiel HCl 7-20 [id number] by mouth 3 [facility] (REGLAN) 10 15:20: [...] l 59 Center hydrALAZINE 2017-0 Yes 100mg Q.06220193 Take [address] [facility] (APRESOLINE 7-20 [id number] mg by L ukes ) 100 MG 15:20: 3D mouth 3 Medica l tablet 59 (three) Center times daily. magnesium 2017-0 Yes 400mg QD Take [address] [facility] oxide 7-20 mg by [facility] (MAG-OX) 15:20: mouth Medical 400 mg 59 daily. Center tablet metoclopram 2017-0 Yes 10mg Q.83410057 Take [address] [facility] gadiel HCl 7-20 [id number] by mouth 3 [facility] (REGLAN) 10 15:20: [...] l 59 Center hydrALAZINE 2017-0 Yes 100mg Q.17363229 Take [address] [facility] (APRESOLINE 7-20 [id number] mg by L ukes ) 100 MG 15:20: 3D mouth 3 Medica l tablet 59 (three) Center times daily. magnesium 2017-0 Yes 400mg QD Take [address] [facility] [facility] oxide 7-20 mg by [facility] (MAG-OX) 15:20: mouth Medical 400 mg 59 daily. Center tablet metoclopram 2017-0 Yes 10mg Q.69847461 Take [address] [facility] gadiel HCl 7-20 [id number] by mouth 3 [facility] (REGLAN) 10 15:20: [...] l 59 Center hydrALAZINE 2017-0 Yes 100mg Q.06715469 Take [address] [facility] (APRESOLINE 7-20 [id number] mg by L ukes ) 100 MG 15:20: 3D mouth 3 Medica l tablet 59 (three) Center times daily. divalproex 2017-0 Yes depression 500mg QD Take [...] Medic al 40 MG 59 Center tablet magnesium 2017-0 Yes 400mg QD Take [address] [facility] [facility] oxide 7-20 mg by [facility] (MAG-OX) 15:20: mouth Medical 400 mg 59 daily. Center tablet amLODIPine 2017-0 Yes 10mg QD Take [address] (NORVASC) 5 7-20 by mouth Luke [facility] MG tablet 15:20: daily. Medica l 59 Center hydrALAZINE 2017-0 Yes 100mg Q.55834866 Take [address] [facility] (APRESOLINE 7-20 [id number] mg by L ukes ) 100 MG 15:20: 3D mouth 3 Medica l tablet 59 (three) Center times daily. magnesium 2017-0 Yes 400mg QD Take [address] [facility] oxide 7-20 mg by [facility] (MAG-OX) 15:20: mouth Medical 400 mg 59 daily. Center tablet metoclopram 2017-0 Yes 10mg Q.90256944 Take [address] [facility] gadiel HCl 7-20 [id number] by mouth 3 [facility] (REGLAN) 10 15:20: [...] every 3 Center mg/mL (three) injection months. metoclopram 2017-0 Yes 10mg Q.06904909 Take [address] [facility] gadiel HCl 7-20 [id number] by mouth 3 [facility] (REGLAN) 10 15:20: [...] l 59 Center hydrALAZINE 2017-0 Yes 100mg Q.79857887 Take [address] [facility] (APRESOLINE 7-20 [id number] mg by L ukes ) 100 MG 15:20: 3D mouth 3 Medica l tablet 59 (three) Center times daily. magnesium 2017-0 Yes 400mg QD Take [address] [facility] [address] oxide 7-20 mg by [facility] (MAG-OX) 15:20: mouth Medical 400 mg 59 daily. Center tablet metoclopram 2017-0 Yes 10mg Q.07658648 Take [address] [facility] gadiel HCl 7-20 [id number] by mouth 3 [facility] (REGLAN) 10 15:20: [...] l 59 Center hydrALAZINE 2017-0 Yes 100mg Q.71633791 Take [address] [facility] [address] (APRESOLINE 7-20 [id number] mg by L ukes ) 100 MG 15:20: 3D mouth 3 Medica l tablet 59 (three) Center times daily. magnesium 2017-0 Yes 400mg QD Take [address] [facility] [address] oxide 7-20 mg by [facility] (MAG-OX) 15:20: mouth Medical 400 mg 59 daily. Center tablet metoclopram 2017-0 Yes 10mg Q.21982016 Take [address] [facility] gadiel HCl 7-20 [id number] by mouth 3 [facility] (REGLAN) 10 15:20: [...] l 59 Center hydrALAZINE 2017-0 Yes 100mg Q.92142665 Take [address] [facility] (APRESOLINE 7-20 [id number] mg by L ukes ) 100 MG 15:20: 3D mouth 3 Medica l tablet 59 (three) Center times daily. magnesium 2017-0 Yes 400mg QD Take [address] oxide 7-20 mg by [facility] (MAG-OX) 15:20: mouth Medical 400 mg 59 daily. Center tablet metoclopram 2017-0 Yes 10mg Q.59466253 Take [address] [facility] gadiel HCl 7-20 [id number] by mouth 3 [facility] (REGLAN) 10 15:20: [...] l 59 Center hydrALAZINE 2017-0 Yes 100mg Q.06669229 Take [address] [facility] (APRESOLINE 7-20 [id number] mg by L es ) 100 MG 15:20: 3D mouth 3 Medica l tablet 59 (three) Center times daily. magnesium 2017-0 Yes 400mg QD Take [address] [facility] [address] oxide 7-20 mg by [facility] (MAG-OX) 15:20: mouth Medical 400 mg 59 daily. Center tablet metoclopram 2017-0 Yes 10mg Q.46518431 Take [address] [facility] gadiel HCl 7-20 [id number] by mouth 3 [facility] (REGLAN) 10 15:20: [...] l 59 Center hydrALAZINE 2017-0 Yes 100mg Q.08107892 Take [address] [facility] [address] (APRESOLINE 7-20 [id number] mg by L ukes ) 100 MG 15:20: 3D mouth 3 Medica l tablet 59 (three) Center times daily. magnesium 2017- Yes 400mg QD Take [address] [facility] [address] oxide 7-20 mg by [facility] (MAG-OX) 15:20: mouth Medical 400 mg 59 daily. Center tablet metoclopram 2017- Yes 10mg Q.85359988 Take [address] [facility] gadiel HCl 7-20 [id number] by mouth 3 [facility] (REGLAN) 10 15:20: [...] l 59 Center hydrALAZINE 2017-0 Yes 100mg Q.59387719 Take [address] [facility] [address] (APRESOLINE 7-20 [id number] mg by L ukes ) 100 MG 15:20: 3D mouth 3 Medica l tablet 59 (three) Center times daily. magnesium 2017-0 Yes 400mg QD Take [address] [facility] [address] oxide 7-20 mg by [facility] (MAG-OX) 15:20: mouth Medical 400 mg 59 daily. Center tablet metoclopram 2017-0 Yes 10mg Q.85160619 Take [address] [facility] gadiel HCl 7-20 [id number] by mouth 3 [facility] (REGLAN) 10 15:20: [...] l 59 Center hydrALAZINE 2017-0 Yes 100mg Q.01649157 Take [address] [facility] [address] (APRESOLINE 7-20 [id number] mg by L ukes ) 100 MG 15:20: 3D mouth 3 Medica l tablet 59 (three) Center times daily. magnesium 2017-0 Yes 400mg QD Take [address] [facility] [address] oxide 7-20 mg by [facility] (MAG-OX) 15:20: mouth Medical 400 mg 59 daily. Center tablet metoclopram 2017-0 Yes 10mg Q.11352107 Take [address] [facility] gadiel HCl 7-20 [id number] by mouth 3 [facility] (REGLAN) 10 15:20: [...] l 59 Center hydrALAZINE 2017-0 Yes 100mg Q.11089232 Take [address] [facility] [address] (APRESOLINE 7-20 [id number] mg by L ukes ) 100 MG 15:20: 3D mouth 3 Medica l tablet 59 (three) Center times daily. magnesium 2017-0 Yes 400mg QD Take [address] [facility] [address] oxide 7-20 mg by [facility] (MAG-OX) 15:20: mouth Medical 400 mg 59 daily. Center tablet metoclopram 2017-0 Yes 10mg Q.05181865 Take [address] [facility] gadiel HCl 7-20 [id number] by mouth 3 [facility] (REGLAN) 10 15:20: [...] l 59 Center hydrALAZINE 2017-0 Yes 100mg Q.37530672 Take [address] [facility] [address] (APRESOLINE 7-20 [id number] mg by L ukes ) 100 MG 15:20: 3D mouth 3 Medica l tablet 59 (three) Center times daily. magnesium 2017-0 Yes 400mg QD Take [address] [facility] [address] oxide 7-20 mg by [facility] (MAG-OX) 15:20: mouth Medical 400 mg 59 daily. Center tablet metoclopram 2017-0 Yes 10mg Q.86987084 Take [address] [facility] gadiel HCl 7-20 [id number] by mouth 3 [facility] (REGLAN) 10 15:20: [...] l 59 Center hydrALAZINE 2017-0 Yes 100mg Q.[id number] Take [address] [facility] [address] (APRESOLINE 7-20 [id number] mg by L ukes ) 100 MG 15:20: 3D mouth 3 Medica l tablet 59 (three) Center times daily. magnesium 2017-0 Yes 400mg QD Take [address] [facility] oxide 7-20 mg by [facility] (MAG-OX) 15:20: mouth Medical 400 mg 59 daily. Center tablet metoclopram 2017-0 Yes 10mg Q.88257869 Take [address] [facility] gadiel HCl 7-20 [id number] by mouth 3 [facility] (REGLAN) 10 15:20: [...] l 59 Center hydrALAZINE 2017-0 Yes 100mg Q.96364682 Take [address] [facility] [address] (APRESOLINE 7-20 [id number] mg by L ukes ) 100 MG 15:20: 3D mouth 3 Medica l tablet 59 (three) Center times daily. magnesium 2017-0 Yes 400mg QD Take [address] [facility] [address] oxide 7-20 mg by [facility] (MAG-OX) 15:20: mouth Medical 400 mg 59 daily. Center tablet metoclopram 2017-0 Yes 10mg Q.55689155 Take [address] [facility] gadiel HCl 7-20 [id number] by mouth 3 [facility] (REGLAN) 10 15:20: [...] l 59 Center hydrALAZINE 2017-0 Yes 100mg Q.17118190 Take [address] [facility] [address] (APRESOLINE 7-20 [id number] mg by L ukes ) 100 MG 15:20: 3D mouth 3 Medica l tablet 59 (three) Center times daily. magnesium 2017-0 Yes 400mg QD Take [address] [facility] [address] oxide 7-20 mg by [facility] (MAG-OX) 15:20: mouth Medical 400 mg 59 daily. Center tablet metoclopram 2017-0 Yes 10mg Q.51672607 Take [address] [facility] gadiel HCl 7-20 [id number] by mouth 3 [facility] (REGLAN) 10 15:20: [...] l 59 Center hydrALAZINE 2017-0 Yes 100mg Q.[id number] Take [address] [facility] [address] (APRESOLINE 7-20 [id number] mg by L ukes ) 100 MG 15:20: 3D mouth 3 Medica l tablet 59 (three) Center times daily. magnesium 2017-0 Yes 400mg QD Take [address] [facility] [address] oxide 7-20 mg by [facility] (MAG-OX) 15:20: mouth Medical 400 mg 59 daily. Center tablet metoclopram 2017-0 Yes 10mg Q.98314670 Take [address] [facility] gadiel HCl 7-20 [id number] by mouth 3 [facility] (REGLAN) 10 15:20: [...] l 59 Center hydrALAZINE 2017-0 Yes 100mg Q.83365523 Take [address] [facility] [address] (APRESOLINE 7-20 [id number] mg by L ukes ) 100 MG 15:20: 3D mouth 3 Medica l tablet 59 (three) Center times daily. magnesium 2017-0 Yes 400mg QD Take [address] [facility] [address] oxide 7-20 mg by [facility] (MAG-OX) 15:20: mouth Medical 400 mg 59 daily. Center tablet metoclopram 2017-0 Yes 10mg Q.46681459 Take [address] [facility] gadiel HCl 7-20 [id number] by mouth 3 [facility] (REGLAN) 10 15:20: [...] l 59 Center hydrALAZINE 2017-0 Yes 100mg Q.[id number] Take [address] [facility] [address] (APRESOLINE 7-20 [id number] mg by L ukes ) 100 MG 15:20: 3D mouth 3 Medica l tablet 59 (three) Center times daily. magnesium 2017-0 Yes 400mg QD Take [address] [facility] [address] oxide 7-20 mg by [facility] (MAG-OX) 15:20: mouth Medical 400 mg 59 daily. Center tablet metoclopram 2017-0 Yes 10mg Q.97781814 Take [address] [facility] gadiel HCl 7-20 [id number] by mouth 3 [facility] (REGLAN) 10 15:20: 3D (three) Med ical MG tablet 59 times Center daily. insulin 2017-0 Yes 5U QD Inject [...] Vin 00 30 tab, 0 Refill(s), Pharmacy: [facility] Furosemide Yes 40 mg = 1 Me moria 40 MG Oral 2-09 tab, PO, l Tablet 15:07: Daily, # [place] 00 30 tab, 0 Refill(s), Pharmacy: [facility] Furosemide Yes 40 mg = 1 Me moria 40 MG Oral 2-09 tab, PO, l Tablet 15:07: Daily, # [place] 00 30 tab, 0 Refill(s), Pharmacy: [facility] Furosemide Yes 40 mg = 1 Me moria 40 MG Oral 2-09 tab, PO, l Tablet 15:07: Daily, # [place] 00 30 tab, 0 Refill(s), Pharmacy: [facility] Furosemide Yes 40 mg = 1 Me moria 40 MG Oral 2-09 tab, PO, l Tablet 15:07: Daily, # [place] 00 30 tab, 0 Refill(s), Pharmacy: [facility] 808 Bumex 2017-0 No 0.5 mg, Memoria 2-09 Route: PO, l 15:00: Drug form: [place] 00 TAB, Daily, Dosing Weight 92.273, kg, Start date: 07/30/16 9:00:00 SOLE PAINTER, Duration: 30 day, Stop date: 08/28/16 9:00:00 SOLE PAINTER Bumex 2017-0 No 0.5 mg, Memoria 2-09 Route: PO, l 15:00: Drug form: [place] 00 TAB, Daily, Dosing Weight 92.273, kg, Start date: 07/30/16 9:00:00 SOLE PAINTER, Duration: 30 day, Stop date: 08/28/16 9:00:00 SOLE PAINTER Bumex 2017-0 No 0.5 mg, Memoria 2-09 Route: PO, l 15:00: Drug form: [place] 00 TAB, Daily, Dosing Weight 92.273, kg, Start date: 07/30/16 9:00:00 SOLE PAINTER, Duration: 30 day, Stop date: 08/28/16 9:00:00 SOLE PAINTER Bumex 2017-0 No 0.5 mg, Memoria 2-09 Route: PO, l 15:00: Drug form: [place] 00 TAB, Daily, Dosing Weight 92.273, kg, Start date: 07/30/16 9:00:00 SOLE PAINTER, Duration: 30 day, Stop date: 08/28/16 9:00:00 SOLE PAINTER Bumex 2017-0 No 0.5 mg, Memoria 2-09 Route: PO, l 15:00: Drug form: [place] 00 TAB, Daily, Dosing Weight 92.273, kg, Start date: 07/30/16 9:00:00 SOLE PAINTER, Duration: 30 day, Stop date: 08/28/16 9:00:00 SOLE PAINTER Lasix 2017-0 No Notes: [facility]oria 2-08 (Same [...] 2-08 (Same as: l 20:05: Lasix) May [place] 00 cause GI upset. Give with food or milk. Hydralazine 2016-0 No Notes: [place] janice 2-08 (Same as: l 06:05: Apresoline [place] 00 ) Push over 5 minutes Hydralazine 2016-0 No Notes: [place] janice 2-08 (Same as: l 06:05: Apresoline [place] 00 ) Push over 5 minutes Hydralazine 2016-0 No Notes: [place] janice 2-08 (Same as: l 06:05: Apresoline Vin 00 ) Push over 5 minutes Hydralazine 2016-0 No Notes: [place] janice 2-08 (Same as: l 06:05: Apresoline [place] 00 ) Push over 5 minutes Hydralazine 2016-0 No Notes: [facility] janice 2-08 (Same as: l 06:05: Apresoline [place] 00 ) Push over 5 minutes sodium 2017-0 No 1,000 mL, Memori a chloride 2-05 Rate: 125 l 0.9% 1000 18:26: ml/hr, Jake n ml INJ 00 Infuse 1,000 mL over: 8 hr, Route: IV, Dosing Weight 92.273 kg, Total Volume: 1,000, Start date: 07/26/16 12:26:00 SOLE PAINTER, Duration: 30 day, Stop date: 08/25/16 12:25:00 SOLE PAINTER sodium 2017-0 No 1,000 mL, Memori a chloride 2-05 Rate: 125 l 0.9% 1000 18:26: ml/hr, Jake n ml INJ 00 Infuse 1,000 mL over: 8 hr, Route: IV, Dosing Weight 92.273 kg, Total Volume: 1,000, Start date: 07/26/16 12:26:00 SOLE PAINTER, Duration: 30 day, Stop date: 08/25/16 12:25:00 SOLE PAINTER sodium 2017-0 No 1,000 mL, Memori a chloride 2-05 Rate: 125 l 0.9% 1000 18:26: ml/hr, Jake n ml INJ 00 Infuse 1,000 mL over: 8 hr, Route: IV, Dosing Weight 92.273 kg, Total Volume: 1,000, Start date: 07/26/16 12:26:00 SOLE PAINTER, Duration: 30 day, Stop date: 08/25/16 12:25:00 SOLE PAINTER sodium 2017-0 No 1,000 mL, Memori a chloride 2-05 Rate: 125 l 0.9% 1000 18:26: ml/hr, Jake n ml INJ 00 Infuse 1,000 mL over: 8 hr, Route: IV, Dosing Weight 92.273 kg, Total Volume: 1,000, Start date: 07/26/16 12:26:00 SOLE PAINTER, Duration: 30 day, Stop date: 08/25/16 12:25:00 SOLE PAINTER sodium 2017-0 No 1,000 mL, Memori a chloride 2-05 Rate: 125 l 0.9% 1000 18:26: ml/hr, Jake n ml INJ 00 Infuse 1,000 mL over: 8 hr, Route: IV, Dosing Weight 92.273 kg, Total Volume: 1,000, Start date: 07/26/16 12:26:00 SOLE PAINTER, Duration: 30 day, Stop date: 08/25/16 12:25:00 SOLE PAINTER Sodium 2017-0 No 500 mL, [facility] Chloride 2-05 500 ml/hr, l 0.154 13:30: Infuse [place] MEQ/ML 00 Over: 1 Injectable hr, Route: Solution IV, 500, Drug form: INJ, ONCE, Priority: STAT, Dosing Weight 92.273 kg, Start date: 07/26/16 7:30:00 SOLE PAINTER, Duration: 1 doses or times, Stop date: 07/26/16 7:30:00 SOLE PAINTER Sodium 2017-0 No 500 mL, [facility] Chloride 2-05 500 ml/hr, l 0.154 13:30: Infuse [place] MEQ/ML 00 Over: 1 Injectable hr, Route: Solution IV, 500, Drug form: INJ, ONCE, Priority: STAT, Dosing Weight 92.273 kg, Start date: 07/26/16 7:30:00 SOLE PAINTER, Duration: 1 doses or times, Stop date: 07/26/16 7:30:00 SOLE PAINTER Sodium 2017-0 No 500 mL, [facility] Chloride 2-05 500 ml/hr, l 0.154 13:30: Infuse [place] MEQ/ML 00 Over: 1 Injectable hr, Route: Solution IV, 500, Drug form: INJ, ONCE, Priority: STAT, Dosing Weight 92.273 kg, Start date: 07/26/16 7:30:00 SOLE PAINTER, Duration: 1 doses or times, Stop date: 07/26/16 7:30:00 SOLE PAINTER Sodium 2017-0 No 500 mL, [facility] Chloride 2-05 500 ml/hr, l 0.154 13:30: Infuse Vin MEQ/ML 00 Over: 1 Injectable hr, Route: Solution IV, 500, Drug form: INJ, ONCE, Priority: STAT, Dosing Weight 92.273 kg, Start date: 07/26/16 7:30:00 SOLE PAINTER, Duration: 1 doses or times, Stop date: 07/26/16 7:30:00 SOLE PAINTER Sodium 2017-0 No 500 mL, [facility] Chloride 2-05 500 ml/hr, l 0.154 13:30: Infuse [place] MEQ/ML 00 Over: 1 Injectable hr, Route: Solution IV, 500, Drug form: INJ, ONCE, Priority: STAT, Dosing Weight 92.273 kg, Start date: 07/26/16 7:30:00 SOLE PAINTER, Duration: 1 doses or times, Stop date: 07/26/16 7:30:00 SOLE PAINTER Insulin 2017-0 No 60 units) Mendoza janice regular 2- WASTE: F/P l 08:39: - Black; E [place] 00 - Municipal Trash Bin Stable for 28 days at room temperatur e Expires in days from ____Date Insulin 2017-0 No 60 units) Mendoza janice regular 2- WASTE: F/P l 08:39: - Black; E Vin 00 - Municipal Trash Bin Stable for 28 days at room temperatur e Expires in days from ____Date Insulin 2017-0 No 60 units) M[facility]za janice regular 2-04 WASTE: F/P l 08:39: - Black; E [place] 00 - Municipal Trash Bin Stable for 28 days at room temperatur e Expires in days from ____Date Insulin 2016-0 No 60 units) Mendoza janice regular 2-04 [...] Roll in l Human 07:31: palms of [place] 00 hands gently; Do not shake vigorously [...] Roll in l Human 07:31: palms of [place] 00 hands gently; Do not shake vigorously . (Same as: NovoLOG) "single patient use only" WASTE: F/P - Black; E - Municipal Trash Bin Stable for 28 days at room temperatur e. Expires in days from ____Date Insulin, No Notes: [facility] Aspart, 2-04 Roll in l Human 05:42: palms of [place] 00 hands gently; Do not shake vigorously . (Same as: NovoLOG) "single patient use only" WASTE: F/P - Black; E - Municipal Trash Bin Stable for 28 days at room temperatur e. Expires in days from ____Date Insulin, No Notes: [facility] Aspart, 2-04 Roll in l Human 05:42: palms of [place] 00 hands gently; Do not shake vigorously . (Same as: NovoLOG) "single patient use only" WASTE: F/P - Black; E - Municipal Trash Bin Stable for 28 days at room temperatur e. Expires in days from ____Date Insulin, No Notes: [facility] Aspart, 2-04 Roll in l Human 05:42: palms of [place] 00 hands gently; Do not shake vigorously . (Same as: NovoLOG) "single patient use only" WASTE: F/P - Black; E - Municipal Trash Bin Stable for 28 days at room temperatur e. Expires in days from ____Date Insulin, No Notes: [facility] Aspart, 2-04 Roll in l Human 05:42: palms of [place] 00 hands gently; Do not shake vigorously [...] Roll in l Human 03:28: palms of [place] 00 hands gently; Do not shake vigorously [...] Roll in l Human 03:28: palms of [place] 00 hands gently; Do not shake vigorously . (Same as: NovoLOG) "single patient use only" WASTE: F/P - Black; E - Municipal Trash Bin Stable for 28 days at room temperatur e. Expires in days from ____Date Insulin, No Notes: [facility] Aspart, 2-04 Roll in l Human 03:28: palms of [place] 00 hands gently; Do not shake vigorously . (Same as: NovoLOG) "single patient use only" WASTE: F/P - Black; E - Municipal Trash Bin Stable for 28 days at room temperatur e. Expires in days from ____Date atorvastati No Notes: Mendoza janice n 2-04 (Same as: l 03:00: Lipitor) divalproex No Notes: Memor ia sodium 2-04 (Same as: l 03:00: Depakote [place] 00 ER) Once daily dosing; indicated for migraines. Divalproex sodium extended-r elease tab. Do not chew or crush. "Do Not Crush" atorvastati No Notes: Mendoza janice n 2-04 (Same as: l 03:00: Lipitor) divalproex No Notes: Memor ia sodium 2-04 (Same as: l 03:00: Depakote [place] 00 ER) Once daily dosing; indicated for migraines. Divalproex sodium extended-r elease tab. Do not chew or crush. "Do Not Crush" atorvastati No Notes: [place]endo[place] janice n 2-04 (Same as: l 03:00: Lipitor) divalproex No Notes: Memor ia sodium 2-04 (Same as: l 03:00: Depakote [place] 00 ER) Once daily dosing; indicated for migraines. Divalproex sodium extended-r elease tab. Do not chew or crush. "Do Not Crush" atorvastati No Notes: Mendoza janice n 2-04 (Same as: l 03:00: Lipitor) divalproex No Notes: Memor ia sodium 2-04 (Same as: l 03:00: Depakote [place] 00 ER) Once daily dosing; indicated for [...] Memoria 2-03 (Same as: l 22:00: Lasix) [place] MEDICATION WASTE Product Size: 40 mg Product Wasted: ___ mg Lasix No Notes: Memoria 2-03 (Same as: l 22:00: Lasix) [place] MEDICATION WASTE Product Size: 40 mg Product Wasted: ___ mg Lasix No Notes: Memoria 2- (Same as: l 22:00: Lasix) [place] MEDICATION WASTE Product Size: 40 mg Product Wasted: ___ mg Lasix No Notes: Memoria 2-03 (Same as: l 22:00: Lasix) [place] 00 MEDICATION WASTE Product Size: 40 mg Product Wasted: ___ mg Lasix No Notes: Memoria 2-03 (Same as: l 22:00: Lasix) [place] 00 MEDICATION WASTE Product Size: 40 mg Product Wasted: ___ mg Tylenol No Notes: Max Mendoza janice 2-03 acetaminop l 21:52: hen = [place] 00 4000mg/day (4 gm/day). (Same as: Tylenol) Tylenol No Notes: Max Mendoza janice 2-03 acetaminop l 21:52: hen = [place] 00 4000mg/day (4 gm/day). (Same as: Tylenol) Tylenol No Notes: Max Mendoza janice 2-03 acetaminop l 21:52: hen = [place] 00 4000mg/day (4 gm/day). (Same as: Tylenol) Tylenol No Notes: Max Mendoza janice 2-03 acetaminop l 21:52: hen = [place] 00 4000mg/day (4 gm/day). (Same as: Tylenol) Tylenol No Notes: Max Mendoza janice 2-03 acetaminop l 21:52: hen = [place] 00 4000mg/day (4 gm/day). 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 (Same as: Protonix) metoprolol No 100 mg, 2 Me moria extended 2-03 tab, l release 15:00: Route: PO, Herm naeem Drug form: ERTAB, Daily, Start date: 07/24/16 9:00:00 SOLE PAINTER, Duration: 30 day, Stop date: 08/22/16 9:00:00 SOLE PAINTER Insulin No Notes: Memoria Glargine 2-03 Same [...] Weight 92.273, kg, Start date: 07/24/16 9:00:00 SOLE PAINTER, Duration: 30 day, Stop date: 08/22/16 9:00:00 SOLE PAINTER 24 HR No Notes: Memoria Divalproex 2-03 [...] form: ERTAB, Daily, Start date: 07/24/16 9:00:00 SOLE PAINTER, Duration: 30 day, Stop date: 08/22/16 9:00:00 SOLE PAINTER Insulin No Notes: Memoria Glargine 2-03 Same [...] Weight 92.273, kg, Start date: 07/24/16 9:00:00 SOLE PAINTER, Duration: 30 day, Stop date: 08/22/16 9:00:00 SOLE PAINTER 24 HR No Notes: Memoria Divalproex 2-03 [...] form: ERTAB, Daily, Start date: 07/24/16 9:00:00 SOLE PAINTER, Duration: 30 day, Stop date: 08/22/16 9:00:00 SOLE PAINTER Insulin No Notes: Memoria Glargine 2-03 Same [...] janice 2-03 (Same as: l 14:50: Zofran) [place] 00 MEDICATION WASTE Product Size: 4 mg Product Wasted: ___ mg Morphine No Notes: Memoria 2-03 (Same l 14:50: as:MORPhin [place] 00 e Sulfate) Ondansetron No Notes: Mendoza janice 2-03 (Same as: l 14:50: Zofran) [place] 00 MEDICATION WASTE Product Size: 4 mg Product Wasted: ___ mg Morphine No Notes: Memoria 2-03 (Same l 14:50: as:MORPhin [place] 00 e Sulfate) Ondansetron No Notes: Mendoza janice 2-03 (Same as: l 14:50: Zofran) [place] 00 MEDICATION WASTE Product Size: 4 mg Product Wasted: ___ mg Morphine No Notes: Memoria 2-03 (Same l 14:50: as:MORPhin [place] 00 e Sulfate) Ondansetron No Notes: Mendoza janice 2-03 (Same as: l 14:50: Zofran) [place] 00 MEDICATION WASTE Product Size: 4 mg Product Wasted: ___ mg Morphine No Notes: Memoria 2-03 (Same l 14:50: as:MORPhin [place] 00 e Sulfate) Ondansetron No Notes: Mendoza [...] Roll in l Human 13:30: palms of [place] 00 hands gently; Do not shake vigorously . (Same as: NovoLOG) "single patient use only" WASTE: F/P - Black; E - Municipal Trash Bin Stable for 28 days at room temperatur e. Expires in days from ____Date Insulin, No Notes: Memoria Aspart, 2-03 Roll in l Human 13:30: palms of [place] 00 hands gently; Do not shake vigorously [...] Memoria 2-03 Same as l 11:28: Dilaudid [place] 00 Dilaudid No Notes: Memoria 2-03 Same as l 11:28: Dilaudid [place] 00 Insulin, No Notes: Memoria Aspart, 2-03 Roll in l Human 08:40: palms of [place] 00 hands gently; Do not shake vigorously . (Same as: NovoLOG) "single patient use only" WASTE: F/P - Black; E - Municipal Trash Bin Stable for 28 days at room temperatur e. Expires in days from ____Date Glucagon No 1 mg, Memoria 2-03 Route: IM, l 08:40: Drug form: [place] 00 PDR/INJ, PRN, Dosing Weight 92.273, kg, PRN Blood Glucose Results, Start date: 07/24/16 2:40:00 SOLE PAINTER, Duration: 30 day, Stop date: 08/23/16 2:39:00 SOLE PAINTER Dextrose No 25 gm, 50 Mendoza janice 50% Syringe 2-03 mL, Route: l 08:40: IVP, Drug [place] 00 Form: INJ, Dosing Weight 92.273, kg, PRN, PRN Blood Glucose Results, Start date: 07/24/16 2:40:00 SOLE PAINTER, Duration: 30 day, Stop date: 08/23/16 2:39:00 SOLE PAINTER Insulin, No Notes: Memoria Aspart, 2-03 Roll [...] Blood Glucose Results, Start date: 07/24/16 2:40:00 SOLE PAINTER, Duration: 30 day, Stop date: 08/23/16 2:39:00 SOLE PAINTER Dextrose 2017-0 No 25 gm, 50 Mendoza janice 50% Syringe 2-03 mL, Route: l 08:40: IVP, Drug [place] 00 Form: INJ, Dosing Weight 92.273, kg, PRN, PRN Blood Glucose Results, Start date: 07/24/16 2:40:00 SOLE PAINTER, Duration: 30 day, Stop date: 08/23/16 2:39:00 SOLE PAINTER Insulin, 2017-0 No Notes: Memoria Aspart, 2-03 [...] 2-03 Route: IM, l 08:40: Drug form: [place] 00 PDR/INJ, PRN, Dosing Weight 92.273, kg, PRN Blood Glucose Results, Start date: 07/24/16 2:40:00 SOLE PAINTER, Duration: 30 day, Stop date: 08/23/16 2:39:00 SOLE PAINTER Dextrose 2017-0 No 25 gm, 50 Mendoza janice 50% Syringe 2-03 mL, Route: l 08:40: IVP, Drug [place] 00 Form: INJ, Dosing Weight 92.273, kg, PRN, PRN Blood Glucose Results, Start date: 07/24/16 2:40:00 SOLE PAINTER, Duration: 30 day, Stop date: 08/23/16 2:39:00 SOLE PAINTER Insulin, 2017-0 No Notes: Memoria Aspart, 2-03 [...] Blood Glucose Results, Start date: 07/24/16 2:40:00 SOLE PAINTER, Duration: 30 day, Stop date: 08/23/16 2:39:00 SOLE PAINTER Dextrose 2017-0 No 25 gm, 50 Mendoza janice 50% Syringe 2-03 mL, Route: l 08:40: IVP, Drug [place] 00 Form: INJ, Dosing Weight 92.273, kg, PRN, PRN Blood Glucose Results, Start date: 07/24/16 2:40:00 SOLE PAINTER, Duration: 30 day, Stop date: 08/23/16 2:39:00 SOLE PAINTER Insulin, 2017-0 No Notes: Memoria Aspart, 2-03 [...] Blood Glucose Results, Start date: 07/24/16 2:40:00 SOLE PAINTER, Duration: 30 day, Stop date: 08/23/16 2:39:00 SOLE PAINTER Dextrose 2017-0 No 25 gm, 50 Mendoza janice 50% Syringe 2-03 mL, Route: l 08:40: IVP, Drug [place] 00 Form: INJ, Dosing Weight 92.273, kg, PRN, PRN Blood Glucose Results, Start date: 07/24/16 2:40:00 SOLE PAINTER, Duration: 30 day, Stop date: 08/23/16 2:39:00 SOLE PAINTER Docusate 2016- No Notes: Memoria 2-03 (Same [...] Memoria 2-03 (Same as: l 07:20: Colace) [place] 00 (Do Not Crush) Ondansetron 2016- No Notes: Mendoza janice 2-03 (Same as: l 07:20: Zofran) [place] 00 MEDICATION WASTE Product Size: 4 mg Product Wasted: ___ mg Docusate 2016- No Notes: Memoria 2-03 (Same as: l 07:20: Colace) [place] 00 (Do Not Crush) Ondansetron 2016-0 No Notes: Mendoza janice 2-03 (Same as: l 07:20: Zofran) [place] 00 MEDICATION WASTE Product Size: 4 mg Product Wasted: ___ mg Docusate 2016- No Notes: Memoria 2-03 (Same as: l 07:20: Colace) [place] 00 (Do Not Crush) Ondansetron 2016-0 No Notes: Mendoza janice 2-03 (Same as: l 07:20: Zofran) [place] 00 MEDICATION WASTE Product Size: 4 mg Product Wasted: ___ mg Lasix 0 No Notes: Memoria 2-03 (Same as: l 06:01: Lasix) [place] 00 MEDICATION WASTE Product Size: 40 mg Product Wasted: ___ mg Lasix 0 No Notes: Memoria 2-03 (Same as: l [...] Memori a 0.833 MG/ML 2-03 (Same as: :09: Duoneb) [place] Ipratropium 00 [place] 0.167 MG/ML Inhalant Solution [DuoNeb] Albuterol No Notes: Memori a 0.833 MG/ML 2- (Same as: :09: Duoneb) Vin Ipratropium 00 [place] 0.167 MG/ML Inhalant Solution [DuoNeb] Albuterol No Notes: Memori a 0.833 MG/ML 2- (Same as: :09: Duoneb) Vin Ipratropium 00 [place] 0.167 MG/ML Inhalant Solution [DuoNeb] Albuterol No Notes: Memori a 0.833 MG/ML 2- (Same as: :09: Duoneb) Vin Ipratropium 00 [place] 0.167 MG/ML Inhalant Solution [DuoNeb] Albuterol No Notes: Memori a 0.833 MG/ML 2- (Same as: :09: Duoneb) [place] Ipratropium 00 [place] 0.167 MG/ML Inhalant Solution [DuoNeb] Furosemide 2015-06 Yes 80 mg = 2 Me moria 40 MG Oral 2-26 tab, PO, l Tablet 16:34: BID, # 120 Nidia nn 00 tab, 0 Refill(s) atorvastati 2015-06 Yes 40 mg = 1 M emoria n 40 mg 2-26 tab, PO, l oral tablet 16:34: Bedtime, # [place] 00 30 tab, 0 Refill(s) Insulin 2015-06 [...] tab, PO, l Tablet 16:34: Daily, # [place] 00 30 tab, 0 Refill(s) Hydroxyzine 2015-06 [...] tab, PO, l tablet 16:34: Daily, # [place] 00 30 tab, 0 Refill(s) Furosemide 2015-06 Yes 80 mg = 2 Me moria 40 MG Oral 2-26 tab, PO, l Tablet 16:34: BID, # 120 Nidia nn 00 tab, 0 Refill(s) atorvastati 2015-06 Yes 40 mg = 1 M emoria n 40 mg 2-26 tab, PO, l oral tablet 16:34: Bedtime, # [place] 00 30 tab, 0 Refill(s) Insulin 2015-06 [...] INHALATION l 0.09 16:34: , PRN, PRN [place] MG/ACTUAT 00 as needed Metered for Dose wheezing, Inhaler use as needed for shortness of breath or wheezing, # 8 gm, 0 Refill(s) Aspirin 81 2015-06 Yes 81 mg = 1 Me moria MG Chewable 2-26 tab, PO, l Tablet 16:34: Daily, # [place] 00 30 tab, 0 Refill(s) Hydroxyzine 2015-06 [...] INHALATION l 0.09 16:34: , PRN, PRN [place] MG/ACTUAT 00 as needed Metered for Dose wheezing, Inhaler use as needed for shortness of breath or wheezing, # 8 gm, 0 Refill(s) Aspirin 81 2015-06 Yes 81 mg = 1 Me moria MG Chewable 2-26 tab, PO, l Tablet 16:34: Daily, # [place] 00 30 tab, 0 Refill(s) Hydroxyzine 2015-06 [...] tab, PO, l Tablet 16:34: Daily, # [place] 00 30 tab, 0 Refill(s) Hydroxyzine 2015-06 [...] 2-26 (Same as: l 15:00: Lasix) May [place] 00 cause GI upset. Give with food or milk. Lasix 2015-06 No Notes: Memoria 2-26 (Same as: l 15:00: Lasix) May [place] 00 cause GI upset. Give with food or milk. ix 2015-06 No Notes: Memoria 2-26 (Same as: l 15:00: Lasix) May [place] 00 cause GI upset. Give with food or milk. Lasix 2015-06 No Notes: Memoria 2-26 (Same as: l 15:00: Lasix) May [place] 00 cause GI upset. Give with food or milk. Lasix 2015-06 No Notes: Memoria 2-26 (Same as: l 15:00: Lasix) May [place] 00 cause GI upset. Give with food or milk. Magnesium 2015-06 No Notes: Memori a Oxide 2-24 (Same as: l 13:36: Mag-Ox [place] 00 400) Magnesium oxide 726ar=946e g elemental magnesium Dose=____m g magnesium oxide (___mg elemental magnesium) Magnesium 2015-06 No Notes: Memori a Oxide 2-24 (Same as: l 13:36: Mag-Ox [place] 00 400) Magnesium oxide 002sf=172g g elemental magnesium Dose=____m g magnesium oxide (___mg elemental magnesium) Magnesium 2015-06 No Notes: Memori a Oxide 2-24 (Same as: l 13:36: Mag-Ox [place] 00 400) Magnesium oxide 581ee=734u g elemental magnesium Dose=____m g magnesium oxide (___mg elemental magnesium) Magnesium 2015-06 No Notes: Memori a Oxide 2-24 (Same as: l 13:36: Mag-Ox [place] 00 400) Magnesium oxide 455wt=790s g elemental magnesium Dose=____m g magnesium oxide (___mg elemental magnesium) Magnesium 2015-06 No Notes: Memori a Oxide 2-24 (Same as: l 13:36: [facility] ) Magnesium oxide 683of=383w g elemental magnesium Dose=____m g magnesium oxide (___mg elemental magnesium) Magnesium 2015-06 No Notes: Memori a Oxide 2-24 (Same as: l :47: [facility] ) Magnesium oxide 104hw=179j g elemental magnesium Dose=____m g magnesium oxide (___mg elemental magnesium) Magnesium 2015-06 No Notes: Memori a Oxide 2-24 (Same as: l :47: [facility] ) Magnesium oxide 600sn=983h g elemental magnesium Dose=____m g magnesium oxide (___mg elemental magnesium) Magnesium 2015-06 No Notes: Memori a Oxide 2-24 (Same as: l :47: [facility] ) Magnesium oxide 849iu=569t g elemental magnesium Dose=____m g magnesium oxide (___mg elemental magnesium) Magnesium 2015-06 No Notes: Memori a Oxide 2-24 (Same as: l :47: [facility] ) Magnesium oxide 926yz=395y g elemental magnesium Dose=____m g magnesium oxide (___mg elemental magnesium) Magnesium 2015-06 No Notes: Memori a Oxide 2-24 (Same as: l :47: [facility] ) Magnesium oxide 351yh=218j g elemental magnesium Dose=____m g magnesium oxide [...] Wellbutrin [place] 00 XL) "[facility] Not Crush" [facility] No Notes: Memoria 2-24 (Same as: l 00:00: Norvasc) [place] 00 Wellbutrin 2015-06 No Notes: Memor ia XL 2-24 (Same as: l 00:00: Wellbutrin [place] 00 XL) "Do Not Crush" [facility] 2015-06 No Notes: Memoria 2-24 (Same as: l 00:00: Norvasc) [place] 00 Wellbutrin 2015-06 No Notes: Memor ia XL 2-24 (Same as: l 00:00: Wellbutrin [place] 00 XL) "Do Not Crush" [facility] 2015-06 No Notes: Memoria 2-24 (Same as: l 00:00: Norvasc) [place] 00 Wellbutrin 2015-06 No Notes: Memor ia XL 2-24 (Same as: l 00:00: Wellbutrin [place] 00 XL) "Do Not Crush" [facility] 2015-06 No Notes: Memoria 2-24 (Same as: l 00:00: Norvasc) [place] 00 Wellbutrin 2015-06 No Notes: Memor ia XL 2-24 (Same as: l 00:00: Wellbutrin [place] 00 XL) "Do Not Crush" [facility] 2015-06 No Notes: Memoria 2-24 (Same as: l 00:00: Norvasc) [place] 00 Insulin 2015-06 No Notes: Memoria Glargine [...] tab, PO, l tablet 15:35: Daily, 0 [place] 00 Refill(s) pravastatin 2015-06 No 40 mg = 1 M emoria 40 mg oral 2-23 tab, PO, l tablet 15:35: Daily, 0 [place] 00 Refill(s) amLODIPine 2015-06 No 10 mg = 1 Me moria 10 mg oral 2-23 tab, PO, l tablet 15:35: Daily, 0 [place] 00 Refill(s) pravastatin 2015-06 No 40 mg = 1 M emoria 40 mg oral 2-23 tab, PO, l tablet 15:35: Daily, 0 [place] 00 Refill(s) amLODIPine 2015-06 No 10 mg = 1 Me moria 10 mg oral 2-23 tab, PO, l tablet 15:35: Daily, 0 [place] Refill(s) pravastatin 2015-06 No 40 mg = 1 M emoria 40 mg oral 2-23 tab, PO, l tablet 15:35: Daily, 0 Vin Refill(s) amLODIPine 2015-06 No 10 mg = 1 Me moria 10 mg oral 2-23 tab, PO, l tablet 15:35: Daily, 0 [place] 00 Refill(s) pravastatin 2015-06 No 40 mg = 1 M emoria 40 mg oral 2-23 tab, PO, l tablet 15:35: Daily, 0 [place] 00 Refill(s) Sertraline 2015-06 Yes 200 mg [...] AND 1 l Capsule 15:27: CAP AT [place] 00 BEDTIME, 0 Refill(s) Insulin, 2015-06 No [...] AND 1 l Capsule 15:27: CAP AT [place] 00 BEDTIME, 0 Refill(s) Insulin, 2015-06 No [...] tab, PO, l Tablet 15:27: Daily, 0 [place] [Zoloft] 00 Refill(s) pantoprazol 2015-06 Yes 40 [...] Memori a 2-22 (Same l 19:00: as:Chronul [place] ac) Lactulose 2015-06 No Notes: Memori a 2-22 (Same l 19:00: as:Chronul [place] ac) Lactulose 2015-06 No Notes: Memori a [...] Weight 86.364, kg, Start date: 06/11/16 9:00:00 SOLE PAINTER, Duration: 30 day, Stop date: 07/10/16 9:00:00 SOLE PAINTER Insulin 2015-06 No Notes: Memoria Glargine 2-22 [...] Weight 86.364, kg, Start date: 06/11/16 9:00:00 SOLE PAINTER, Duration: 30 day, Stop date: 07/10/16 9:00:00 SOLE PAINTER Insulin 2015-06 No Notes: Memoria Glargine 2-22 [...] Weight 86.364, kg, Start date: 06/11/16 9:00:00 SOLE PAINTER, Duration: 30 day, Stop date: 07/10/16 9:00:00 SOLE PAINTER Insulin 2015-06 No Notes: Memoria Glargine 2-22 [...] 2-22 Route: PO, l 15:00: Drug form: [place] 00 ECTAB, Daily, Dosing Weight 86.364, kg, Start date: 06/11/16 9:00:00 SOLE PAINTER, Duration: 30 day, Stop date: 07/10/16 9:00:00 SOLE PAINTER Insulin 2015-06 No Notes: Memoria Glargine 2-22 [...] Weight 86.364, kg, Start date: 06/11/16 9:00:00 SOLE PAINTER, Duration: 30 day, Stop date: 07/10/16 9:00:00 SOLE PAINTER Insulin 2015-06 No Notes: Memoria Glargine 2-22 [...] Roll in l Human 12:55: palms of [place] 00 hands gently; Do not shake vigorously . (Same as: NovoLOG) "single patient use only" WASTE: F/P - Black; E - Municipal Trash Bin Stable for 28 days at room temperatur e. Expires in days from ____Date Insulin, 2015-06 No Notes: Memoria Aspart, 2-22 Roll in l Human 12:55: palms of [place] 00 hands gently; Do not shake vigorously . (Same as: NovoLOG) "single patient use only" WASTE: F/P - Black; E - Municipal Trash Bin Stable for 28 days at room temperatur e. Expires in days from ____Date heparin 2015-06 No Notes: Memoria sodium, 2-22 porcine l porcine 06:00: heparin [place] 2500 UNT/ML 00 Injectable Solution heparin 2015-06 No Notes: Memoria sodium, 2-22 porcine l porcine 06:00: heparin [place] 2500 UNT/ML 00 Injectable Solution heparin 2015-06 [...] l / 03:00: Duoneb) [place] Ipratropium 00 [place] 0.167 MG/ML Inhalant Solution [DuoNeb] gabapentin 2015-06 No 300 mg, Mendoza janice 300 MG Oral 222 Route: PO, l Capsule 03:00: Drug form: Herm naeem 00 CAP, Q12H, Dosing Weight 86.364, kg, (CrCl 30 - 59 ml/min), Start date: 06/10/16 21:00:00 SOLE PAINTER, Duration: 30 day, Stop date: 07/10/16 9:00:00 SOLE PAINTER divalproex 2015-06 No Notes: Memor ia sodium 2-22 (Same as: l 03:00: Depakote [place] 00 ER) Once daily dosing; indicated for migraines. Divalproex sodium extended-r elease tab. Do not chew or crush. "Do Not Crush" Losartan 2015-06 No Notes: Memoria 2-22 (Same as: l 03:00: Cozaar) [place] 00 Albuterol 2015-06 No Notes: Memori a 0.833 MG/ML 08-12 (Same as: l 03:00: Duoneb) [place] Ipratropium 00 [place] 0.167 MG/ML Inhalant Solution [DuoNeb] gabapentin 2015-06 No 300 mg, Mendoza janice 300 MG Oral 22 Route: PO, l Capsule 03:00: Drug form: Herm naeem 00 CAP, Q12H, Dosing Weight 86.364, kg, (CrCl 30 - 59 ml/min), Start date: 06/10/16 21:00:00 SOLE PAINTER, Duration: 30 day, Stop date: 07/10/16 9:00:00 SOLE PAINTER divalproex 2015-06 No Notes: Memor ia sodium 2-22 (Same as: l 03:00: Depakote [place] 00 ER) Once daily dosing; indicated for migraines. Divalproex sodium extended-r elease tab. Do not chew or crush. "Do Not Crush" Losartan 2015-06 No Notes: Memoria 2-22 (Same as: l 03:00: Cozaar) [place] 00 Albuterol 2015-06 No Notes: Memori a 0.833 MG/ML 2-22 (Same as: l / 03:00: Duoneb) Ipratropium 00 [place] 0.167 MG/ML Inhalant Solution [DuoNeb] gabapentin 2015-06 No 300 mg, Mendoza janice 300 MG Oral 2-22 Route: PO, l Capsule 03:00: Drug form: Herm naeem 00 CAP, Q12H, Dosing Weight 86.364, kg, (CrCl 30 - 59 ml/min), Start date: 06/10/16 21:00:00 SOLE PAINTER, Duration: 30 day, Stop date: 07/10/16 9:00:00 SOLE PAINTER divalproex 2015-06 No Notes: Memor ia sodium 2-22 (Same as: l 03:00: Depakote [place] 00 ER) Once daily dosing; indicated for migraines. Divalproex sodium extended-r elease tab. Do not chew or crush. "Do Not Crush" Losartan 2015-06 No Notes: Memoria 2-22 (Same as: l 03:00: Cozaar) [place] 00 Albuterol 2015-06 No Notes: Memori a 0.833 MG/ML 2-22 (Same as: l / 03:00: Duoneb) Ipratropium 00 [place] 0.167 MG/ML Inhalant Solution [DuoNeb] gabapentin 2015-06 No 300 mg, Mendoza janice 300 MG Oral 2-22 Route: PO, l Capsule 03:00: Drug form: Herm naeem 00 CAP, Q12H, Dosing Weight 86.364, kg, (CrCl 30 - 59 ml/min), Start date: 06/10/16 21:00:00 SOLE PAINTER, Duration: 30 day, Stop date: 07/10/16 9:00:00 SOLE PAINTER divalproex 2015-06 No Notes: Memor ia sodium 2-22 (Same as: l 03:00: Depakote [place] 00 ER) Once daily dosing; indicated for migraines. Divalproex sodium extended-r elease tab. Do not chew or crush. "Do Not Crush" Losartan 2015-06 No Notes: Memoria 2-22 (Same as: l 03:00: Cozaar) [place] Albuterol 2015-06 No Notes: Memori a 0.833 MG/ML 2-22 (Same as: l / 03:00: Duoneb) Ipratropium 00 [place] 0.167 MG/ML Inhalant Solution [DuoNeb] gabapentin 2015-06 No 300 mg, Mendoza janice 300 MG Oral 2-22 Route: PO, l Capsule 03:00: Drug form: Herm naeem 00 CAP, Q12H, Dosing Weight 86.364, kg, (CrCl 30 - 59 ml/min), Start date: 06/10/16 21:00:00 SOLE PAINTER, Duration: 30 day, Stop date: 07/10/16 9:00:00 SOLE PAINTER divalproex 2015-06 No Notes: Memor ia sodium 2-22 (Same as: l 03:00: Depakote [place] 00 ER) Once daily dosing; indicated for migraines. Divalproex sodium extended-r elease tab. Do not chew or crush. "Do Not Crush" Losartan 2015-06 No Notes: Memoria 2-22 (Same as: l 03:00: Cozaar) [place] 00 Insulin, 2015-06 No Notes: Memoria Aspart, [...] Blood Glucose Results, Start date: 06/10/16 18:50:00 SOLE PAINTER, Duration: 30 day, Stop date: 07/10/16 18:49:00 SOLE PAINTER Glucagon 2015-06 No 1 mg, Memoria 2-22 Route: IM, l 00:50: Drug form: [place] 00 PDR/INJ, PRN, Dosing Weight 86.364, kg, PRN Blood Glucose Results, Start date: 06/10/16 18:50:00 SOLE PAINTER, Duration: 30 day, Stop date: 07/10/16 18:49:00 SOLE PAINTER Insulin, 2015-06 No Notes: Memoria Aspart, 2-22 Roll in l Human 00:50: palms of [place] 00 hands gently; Do not shake vigorously . (Same as: NovoLOG) "single patient use only" WASTE: F/P - Black; E - Municipal Trash Bin Stable for 28 days at room temperatur e. Expires in days from ____Date Dextrose 2015-06 No 12.5 gm, Memor ia 50% Syringe 2-22 25 mL, l 00:50: Route: [place] 00 IVP, Drug Form: INJ, Dosing Weight 86.364, kg, PRN, PRN Blood Glucose Results, Start date: 06/10/16 18:50:00 SOLE PAINTER, Duration: 30 day, Stop date: 07/10/16 18:49:00 SOLE PAINTER Glucagon 2015-06 No 1 mg, Memoria 2-22 Route: IM, l 00:50: Drug form: [place] 00 PDR/INJ, PRN, Dosing Weight 86.364, kg, PRN Blood Glucose Results, Start date: 06/10/16 18:50:00 SOLE PAINTER, Duration: 30 day, Stop date: 07/10/16 18:49:00 SOLE PAINTER Insulin, 2015-06 No Notes: Memoria Aspart, 2-22 [...] Syringe 2-22 25 mL, l 00:50: Route: [place] 00 IVP, Drug Form: INJ, Dosing Weight 86.364, kg, PRN, PRN Blood Glucose Results, Start date: 06/10/16 18:50:00 SOLE PAINTER, Duration: 30 day, Stop date: 07/10/16 18:49:00 SOLE PAINTER Glucagon 2015-06 No 1 mg, Memoria 2-22 Route: IM, l 00:50: Drug form: [place] 00 PDR/INJ, PRN, Dosing Weight 86.364, kg, PRN Blood Glucose Results, Start date: 06/10/16 18:50:00 SOLE PAINTER, Duration: 30 day, Stop date: 07/10/16 18:49:00 SOLE PAINTER Insulin, 2015-06 No Notes: Memoria Aspart, 2-22 [...] Syringe 2-22 25 mL, l 00:50: Route: [place] 00 IVP, Drug Form: INJ, Dosing Weight 86.364, kg, PRN, PRN Blood Glucose Results, Start date: 06/10/16 18:50:00 SOLE PAINTER, Duration: 30 day, Stop date: 07/10/16 18:49:00 SOLE PAINTER Glucagon 2015-06 No 1 mg, Memoria 2-22 Route: IM, l 00:50: Drug form: [place] 00 PDR/INJ, PRN, Dosing Weight 86.364, kg, PRN Blood Glucose Results, Start date: 06/10/16 18:50:00 SOLE PAINTER, Duration: 30 day, Stop date: 07/10/16 18:49:00 SOLE PAINTER Insulin, 2015-06 No Notes: Memoria Aspart, 2-22 Roll in l Human 00:50: palms of [place] 00 hands gently; Do not shake vigorously [...] Blood Glucose Results, Start date: 06/10/16 18:50:00 SOLE PAINTER, Duration: 30 day, Stop date: 07/10/16 18:49:00 SOLE PAINTER Glucagon 2015-06 No 1 mg, Memoria 2-22 Route: IM, l 00:50: Drug form: [place] 00 PDR/INJ, PRN, Dosing Weight 86.364, kg, PRN Blood Glucose Results, Start date: 06/10/16 18:50:00 SOLE PAINTER, Duration: 30 day, Stop date: 07/10/16 18:49:00 SOLE PAINTER Hydralazine 2015-06 No Notes: Mendoza janice 2-22 (Same as: l 00:36: Apresoline [place] 00 ) Push over 5 minutes Hydralazine 2015-06 No Notes: Mendoza janice 2-22 (Same as: l 00:36: Apresoline [place] 00 ) Push over 5 minutes Hydralazine 2015-06 No Notes: Mendoza janice 2-22 (Same as: l 00:36: Apresoline [place] 00 ) Push over 5 minutes Hydralazine 2015-06 No Notes: Mendoza janice 2-22 (Same as: l 00:36: Apresoline [place] 00 ) Push over 5 minutes Hydralazine [...] janice 2-22 (Same as: l 00:34: Apresoline [place] 00 ) May interfere w/enteral feedings Take With Food Hydralazine 2015-06 No Notes: Mendoza janice 2-22 (Same as: l 00:34: [facility] [place] 00 ) May interfere w/enteral feedings Take [...] Weight 86.364, kg, Start date: 06/10/16 18:06:00 SOLE PAINTER, Stop date: 06/10/16 18:06:00 SOLE PAINTER Hydralazine 2015-06 No 10 mg, Mendoza janice 2-22 Route: IV, l 00:06: ONCE, Dosing Weight 86.364, kg, Start date: 06/10/16 18:06:00 SOLE PAINTER, Stop date: 06/10/16 18:06:00 SOLE PAINTER Hydralazine 2015-06 No 10 mg, Mendoza janice 2-22 Route: IV, l 00:06: ONCE, Vin 00 Dosing Weight 86.364, kg, Start date: 06/10/16 18:06:00 SOLE PAINTER, Stop date: 06/10/16 18:06:00 SOLE PAINTER Hydralazine 2015-06 No 10 mg, Mendoza janice 2-22 Route: IV, l 00:06: ONCE, Vin 00 Dosing Weight 86.364, kg, Start date: 06/10/16 18:06:00 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 PAINTER, Stop date: 06/10/16 18:06:00 SOLE PAINTER Hydralazine 2015-06 No 10 mg, Mendoza janice 2-22 Route: IV, l 00:06: ONCE, Dosing Weight 86.364, kg, Start date: 06/10/16 18:06:00 SOLE PAINTER, Stop date: 06/10/16 18:06:00 SOLE PAINTER hydrOXYzine 2015-06 No Notes: Mendoza janice pamoate [...] Weight 86.364, kg, Start date: 06/10/16 16:32:00 SOLE PAINTER, Stop date: 06/10/16 16:32:00 SOLE PAINTER Furosemide 2015-06 No 60 mg, Memor ia 2-21 Route: l 22:32: IVP, Drug form: INJ, ONCE, Dosing Weight 86.364, kg, Start date: 06/10/16 16:32:00 SOLE PAINTER, Stop date: 06/10/16 16:32:00 SOLE PAINTER Furosemide 2015-06 No 60 mg, Memor ia 2-21 Route: l 22:32: IVP, Drug form: INJ, ONCE, Dosing Weight 86.364, kg, Start date: 06/10/16 16:32:00 SOLE PAINTER, Stop date: 06/10/16 16:32:00 SOLE PAINTER Furosemide 2015-06 No 60 mg, Memor ia 2- Route: l 22:32: IVP, Drug Vin 00 form: INJ, ONCE, Dosing Weight 86.364, kg, Start date: 06/10/16 16:32:00 SOLE PAINTER, Stop date: 06/10/16 16:32:00 SOLE PAINTER Furosemide 2015-06 No 60 mg, Memor ia 08-11 Route: l 22:32: IVP, Drug Vin 00 form: INJ, ONCE, Dosing Weight 86.364, kg, Start date: 06/10/16 16:32:00 SOLE PAINTER, Stop date: 06/10/16 16:32:00 SOLE PAINTER Lasix 2015-06 No Notes: Memoria 08-11 (Same as: l 17:22: Lasix) [place] 00 MEDICATION WASTE Product Size: 40 mg Product Wasted: _0__ mg Albuterol 2015-06 No Notes: Memori a 0.833 MG/ML - (Same as: :22: Duoneb) Vin Ipratropium 00 [place] 0.167 MG/ML Inhalant Solution [DuoNeb] Lasix 2015-06 No Notes: Memoria 08-11 (Same as: l 17:22: Lasix) [place] 00 MEDICATION WASTE Product Size: 40 mg Product Wasted: _0__ mg Albuterol 2015-06 No Notes: Memori a 0.833 MG/ML - (Same as: :22: Duoneb) [place] Ipratropium 00 [place] 0.167 MG/ML Inhalant Solution [DuoNeb] Lasix 2015-06 No Notes: Memoria 2- (Same as: l 17:22: Lasix) Vin 00 MEDICATION WASTE Product Size: 40 mg Product Wasted: _0__ mg Albuterol 2015-06 No Notes: Memori a 0.833 MG/ML 2-21 (Same as: 17:22: Duoneb) Vin Ipratropium 00 [place] 0.167 MG/ML Inhalant Solution [DuoNeb] Lasix 2015-06 No Notes: Memoria 2-21 (Same as: l 17:22: Lasix) [place] 00 MEDICATION WASTE Product Size: 40 mg Product Wasted: _0__ mg Albuterol 2015-06 No Notes: Memori a 0.833 MG/ML 08-11 (Same as: l 17:22: Duoneb) Vin Ipratropium 00 [place] 0.167 MG/ML Inhalant Solution [DuoNeb] Lasix 2015-06 No Notes: Memoria 08-11 (Same as: l 17:22: Lasix) [place] 00 MEDICATION WASTE Product Size: 40 mg Product Wasted: _0__ mg Albuterol 2015-06 No Notes: Memori a 0.833 MG/ML 08-11 (Same as: 17:22: Duoneb) Vin Ipratropium 00 [place] 0.167 MG/ML Inhalant Solution [DuoNeb] Promethazin Yes 25 mg = 1 M emoria e -06 supp, IN, l Hydrochlori 14:45: Q6H, Jake n de 25 MG 00 Nausea & Rectal Vomiting, Suppository # 9 supp, [Phenergan] 0 Refill(s) Promethazin Yes 25 mg = 1 M emoria e 1-06 supp, IN, l Hydrochlori 14:45: Q6H, Jake n de 25 MG 00 Nausea & Rectal Vomiting, Suppository # 9 supp, [Phenergan] 0 Refill(s) Promethazin Yes 25 mg = 1 M emoria e 1-06 supp, IN, l Hydrochlori 14:45: Q6H, Jake n de 25 MG 00 Nausea & Rectal Vomiting, Suppository # 9 supp, [Phenergan] 0 Refill(s) Promethazin Yes 25 mg = 1 M emoria e 1-06 supp, IN, l Hydrochlori 14:45: Q6H, Jake n de 25 MG 00 Nausea & Rectal Vomiting, Suppository # 9 supp, [Phenergan] 0 Refill(s) Promethazin Yes 25 mg = 1 M emoria e 1-06 supp, IN, l Hydrochlori 14:45: Q6H, Jake n de 25 MG 00 Nausea & Rectal Vomiting, Suppository # 9 supp, [Phenergan] 0 Refill(s) Ondansetron Yes Special Mem oria 4 MG 1-06 [...] Nidia nn Coated 00 Refill(s) Tablet Metoclopram 0 Yes 10 mg = 1 M emoria gadiel 10 MG 1-06 tab, PO, l Oral Tablet 14:24: QID, # 40 H ermann [Reglan] 00 tab, 0 Refill(s) Erythromyci 0 Yes = 1 tab, Me moria n [...] ne 06 Same as: l 11:48: Dilaudid [place] Hydromorpho No Notes: Mendoza janice ne 06 Same as: l 11:48: Dilaudid Vin Hydromorpho No Notes: Mendoza janice ne 06 Same as: l 11:48: Dilaudid Vin Hydromorpho No Notes: Mendoza janice ne 06 Same as: l 11:48: Dilaudid Vin Dicyclomine Yes 0 Memori a 1-06 Refill(s) l 11:18: Vin 00 hydrOXYzine Yes 0 Memori a pamoate 1-06 Refill(s) l 11:18: Vin 00 Dicyclomine Yes 0 Memori a 1-06 Refill(s) l 11:18: [place] 00 hydrOXYzine Yes 0 Memori a pamoate 1-06 Refill(s) l 11:18: [place] Dicyclomine Yes 0 Memori a 1-06 Refill(s) [...] Memori a pamoate 1-06 Refill(s) l 11:18: Ondansetron 2015-0 Yes [...] Chloride 1-06 1,000 l 0.154 10:56: ml/hr, [place] MEQ/ML 00 Infuse Injectable Over: 2 Solution hr, Route: IV, 2,000, Drug form: INJ, ONCE, Priority: STAT, Dosing Weight 75 kg, Start date: 06/26/14 4:56:00, Duration: 1 doses or times, Stop date: 06/26/14 4:56:00 Lorazepam 2014-0 No Notes: Memori a 1-06 (Same as: l 10:56: Ativan) Vin Sodium No 2,000 mL, Memori a Chloride 1-06 1,000 l 0.154 10:56: ml/hr, Vin MEQ/ML 00 Infuse Injectable Over: 2 Solution hr, Route: IV, 2,000, Drug form: INJ, ONCE, Priority: STAT, Dosing Weight 75 kg, Start date: 06/26/14 4:56:00, Duration: 1 doses or times, Stop date: 06/26/14 4:56:00 Lorazepam 0 No Notes: Memori a 1-06 (Same as: l 10:56: Ativan) [place] Sodium No 2,000 mL, Memori a Chloride 1-06 1,000 l 0.154 10:56: ml/hr, Vin MEQ/ML 00 Infuse Injectable Over: 2 Solution hr, Route: IV, 2,000, Drug form: INJ, ONCE, Priority: STAT, Dosing Weight 75 kg, Start date: 06/26/14 4:56:00, Duration: 1 doses or times, Stop date: 06/26/14 4:56:00 Lorazepam 2014-0 No Notes: Memori a 1-06 (Same as: l 10:56: Ativan) [place] Sodium No 2,000 mL, Memori a Chloride 1-06 1,000 l 0.154 10:56: ml/hr, [place] MEQ/ML 00 Infuse Injectable Over: 2 Solution [...] as: l 10:55: Reglan) Metoclopram No Notes: Mnedoza janice gadiel 06-26 (Same as: l 10:55: [...] Rate: 125 l 0.9% IV 04:10: ml/hr, [place] 1,000 mL 00 Infuse over: 8 hr, [...] Rate: 125 l 0.9% IV 04:10: ml/hr, [place] 1,000 mL 00 Infuse over: 8 hr, [...] Rate: 125 l 0.9% IV 04:10: ml/hr, [place] 1,000 mL 00 Infuse over: 8 hr, [...] 9-25 Marx Route: l 01:15: IVP, ONCE, [place] 00 Dosing Weight 58.636, kg, Priority: STAT, Start date: 03/14/12 20:15:00, Stop date: 03/14/12 20:15:00 Sodium 2012-0 No Hung Murillo 500 mL, Me moria Chloride 9-24 Marx Rate: 500 l 0.9% 23:45: ml/hr, [place] (Bolus) IV 00 Infuse 500 mL over: 1 hr, Route: IV, kg, Total Volume: 500, Bolus Dose, Priority: STAT, Start date: 03/14/12 18:45:00, Duration: 1 doses or times, Stop date: 03/14/12 19:44:00 Sodium 2012-0 No Hung Murillo 500 mL, Me moria Chloride 9-24 Marx Rate: 500 l 0.9% 23:45: ml/hr, [place] (Bolus) IV 00 Infuse 500 mL over: 1 hr, Route: IV, kg, Total Volume: 500, Bolus Dose, Priority: STAT, Start date: 03/14/12 18:45:00, Duration: 1 doses or times, Stop date: 03/14/12 19:44:00 Sodium 2012-0 No Hung Murillo 500 mL, Me moria Chloride 9-24 Marx Rate: 500 l 0.9% 23:45: ml/hr, [place] (Bolus) IV 00 Infuse 500 mL over: [...] 03/14/12 17:19:00, Stop date: 03/14/12 17:19:00 pantoprazol 2012-0 No Hung Murillo 40 mg, Memoria e [...] 9-24 Marx Route: l 22:19: IVP, ONCE, [place] 00 Dosing Weight 58.636, kg, For IV push reconstitu te with 10 ml 0.9% sodium chloride and push over at least 3 minutes, Priority: STAT, Start date: 03/14/12 17:19:00, Stop date: 03/14/12 17:19:00 Sodium 2011-0 No Hung Murillo 500 mL, Me moria Chloride 9-24 Marx Rate: l 0.9% 22:19: 1,000 [place] (Bolus) IV 00 ml/hr, 500 mL Infuse over: 0.5 hr, Route: IV, kg, Total Volume: 500, Bolus dose, Priority: STAT, Start date: 03/14/12 17:19:00, Duration: 1 doses or times, Stop date: 03/14/12 17:48:00 ondansetron 2011-0 No Hung Murillo 4 mg, Memoria 9-24 Marx Route: l 22:19: IVP, ONCE, [place] 00 Dosing Weight 58.636, kg, Priority: STAT, Start date: 03/14/12 17:19:00, Stop date: 03/14/12 17:19:00 morphine 2011-0 No Hung Murillo 5 mg, Me moria Sulfate 9-24 Marx Route: l 22:19: IVP, ONCE, [place] 00 Dosing Weight 58.636, kg, Priority: STAT, Start date: 03/14/12 17:19:00, Stop date: 03/14/12 17:19:00 pantoprazol 2011-0 No Hung Murillo 40 mg, Memoria e 9-24 Marx Route: l 22:19: IVP, ONCE, [place] 00 Dosing Weight 58.636, kg, For IV push reconstitu te with 10 ml 0.9% sodium chloride and push over at least 3 minutes, Priority: STAT, Start date: 03/14/12 17:19:00, Stop date: 03/14/12 17:19:00 Sodium 2011-0 No Hung Murillo 500 mL, Me moria Chloride 9-24 Marx Rate: l 0.9% 22:19: 1,000 Vni (Bolus) IV 00 ml/hr, 500 mL Infuse [...] 9-24 Marx Rate: l 0.9% 22:19: 1,000 [place] (Bolus) IV 00 ml/hr, 500 mL Infuse [...] insulin No Blake 10 unit, Mem oria isophane-PROGRESSIVE CARE UNIT REGISTERED NURSE 6-11 Deangelo 0.1 mL, l H 02:00: Route: SUB-Q, Drug form: INJ, Bedtime, Start date: 11/29/11 21:00:00, Duration: 30 day, Stop date: 12/28/11 21:00:00 Insulin No Blake 8 unit, Mendoza janice regular 6-11 Deangelo 0.08 mL, l 02:00: Route: [place] 00 SUB-Q, Drug form: SOLN, Bedtime, Start [...] 2011-0 No Blake 10 unit, Mem oria isophane-PROGRESSIVE CARE UNIT REGISTERED NURSE 6-11 Deangelo 0.1 mL, l H 02:00: Brisa Route: [place] SUB-Q, Drug form: INJ, Bedtime, Start date: [...] 2011-0 No Blake 10 unit, Mem oria isophane-PROGRESSIVE CARE UNIT REGISTERED NURSE 6-11 Deangelo 0.1 mL, l H 02:00: [...] 2011-0 No Blake 10 unit, Mem oria isophane-PROGRESSIVE CARE UNIT REGISTERED NURSE 6-11 Deangelo 0.1 mL, l H 02:00: Brisa Route: [place] 00 SUB-Q, Drug form: INJ, Bedtime, Start date: 11/29/11 21:00:00, Duration: 30 day, Stop date: 12/28/11 21:00:00 Insulin 2011-0 No Blake 8 unit, Mendoza janice regular 6-11 Deangelo 0.08 mL, l 02:00: Brisa Route: [place] SUB-Q, Drug form: SOLN, Bedtime, Start date: [...] 2011-0 No Blake 10 unit, Mem oria isophane-PROGRESSIVE CARE UNIT REGISTERED NURSE 6-11 Deangelo 0.1 mL, l H 02:00: Brisa Route: [place] SUB-Q, Drug form: INJ, Bedtime, Start date: [...] 6-10 Omidvar Route: l 21:33: IVP, ONCE, [place] 00 Start date: 11/29/11 16:33:00, Stop date: 11/29/11 16:33:00 morphine 2012-0 No [place] 2 mg, Memori a Sulfate 6-10 Omidvar Route: l 21:33: IVP, ONCE, [place] 00 Start date: 11/29/11 16:33:00, Stop date: 11/29/11 16:33:00 morphine 2012-0 No [place] 2 mg, Memori a Sulfate 6-10 Omidvar Route: l 21:33: IVP, ONCE, [place] 00 Start date: 11/29/11 16:33:00, Stop date: [...] Omidvar mL, Route: l 21:32: IVP, Drug [place] 00 form: INJ, ONCE, Start date: 11/29/11 16:32:00, Stop date: 11/29/11 16:32:00 morphine 2011-0 No [place] 2 mg, 0.5 Me moria Sulfate 6-10 Omidvar mL, Route: l 21:32: IVP, Drug Vin 00 form: INJ, ONCE, Start date: 11/29/11 16:32:00, Stop date: 11/29/11 16:32:00 morphine 2011-0 No [place] 2 mg, 0.5 Me moria Sulfate 6-10 Omidvar mL, Route: l 21:32: IVP, Drug [place] 00 form: INJ, ONCE, Start date: 11/29/11 [...] 30 day, Stop date: 12/29/11 14:15:00 Tylenol 2012-0 No [place] 650 mg, 2 Mem oria [...] 30 day, Stop date: 12/29/11 14:15:00 Tylenol 0 No [place] 650 mg, 2 Mem oria 6-10 Omidvar tab, l 19:16: Route: PO, Drug form: TAB, Q4H, PRN Pain, Start date: 11/29/11 14:16:00, Duration: 30 day, Stop date: 12/29/11 14:15:00 Tylenol 0 No [place] 650 mg, 2 Mem oria 6-10 Omidvar tab, l 19:16: Route: PO, Drug form: TAB, Q4H, PRN Pain, Start date: 11/29/11 14:16:00, Duration: 30 day, Stop date: 12/29/11 14:15:00 insulin 2011-0 No Blake 14 unit, Mem oria isophane-PROGRESSIVE CARE UNIT REGISTERED NURSE 6-10 Deangelo 0.14 mL, l H 14:00: [facility] Route: SUB-Q, Drug form: INJ, Daily, Start date: 11/29/11 9:00:00, Duration: 30 day, Stop date: 12/28/11 9:00:00 Insulin 2011-0 No Blake 10 unit, Mem oria regular 6-10 Deangelo 0.1 mL, l 14:00: Brisa Route: SUB-Q, Drug form: SOLN, Daily, Start [...] 2011-0 No Blake 14 unit, Mem oria isophane-PROGRESSIVE CARE UNIT REGISTERED NURSE 6-10 Deangelo 0.14 mL, l H 14:00: Brisa Route: [place] SUB-Q, Drug form: INJ, Daily, Start date: [...] 2011-0 No Blake 14 unit, Mem oria isophane-PROGRESSIVE CARE UNIT REGISTERED NURSE 6-10 Deangelo 0.14 mL, l H 14:00: Brisa Route: [place] 00 SUB-Q, Drug form: INJ, Daily, Start [...] 2011-0 No Blake 14 unit, Mem oria isophane-PROGRESSIVE CARE UNIT REGISTERED NURSE 6-10 Deangelo 0.14 mL, l H 14:00: [...] 2011-0 No Blake 14 unit, Mem oria isophane-PROGRESSIVE CARE UNIT REGISTERED NURSE 6-10 Deangelo 0.14 mL, l H 14:00: Brisa Route: [place] 00 SUB-Q, Drug form: INJ, Daily, Start [...] Deangelo 0.1 mL, l 06:30: Brisa Route: [place] 00 SUB-Q, Drug form: SOLN, TID-Before Meals, [...] l 06:30: Brisa Drug form: Her braden PDR/INJ, PRN, PRN [...] Syringe 6-10 Deangelo mL, Route: l 06:30: [facility] IVP, Drug Herm naeem 00 Form: INJ, [...] 6-10 Deangelo 0.1 mL, l 06:30: Route: [place] 00 SUB-Q, Drug form: SOLN, TID-Before Meals, PRN Blood Glucose Results, Start date: 11/29/11 1:30:00, Duration: 30 day, Stop date: 12/29/11 1:29:00 Dextrose 2011-0 No Blake 25 gm, 50 M emoria 50% Syringe 6-10 Deangelo mL, Route: l 06:30: [facility] IVP, Drug Herm naeem 00 Form: INJ, [...] l IV 1,000 mL 06:29: Brisa ml/hr, [place] 00 Infuse over: 5 hr, Route: IV, [...] l IV 1,000 mL 06:29: Brisa ml/hr, [place] 00 Infuse over: 5 hr, Route: IV, Dosing Weight 57.273 kg, Total Volume: 1,000, Start date: 11/29/11 1:29:00, Duration: 30 day, Stop date: 12/29/11 1:28:00 normal 2011-0 No Blake 1,000 mL, Mem oria saline 0.9% 6-10 Deangelo Rate: 200 l IV 1,000 mL 06:29: Brisa ml/hr, [place] 00 Infuse over: 5 hr, Route: IV, Dosing Weight 57.273 kg, Total Volume: 1,000, Start date: 11/29/11 1:29:00, Duration: 30 day, Stop date: 12/29/11 1:28:00 normal 2011-0 No Blake 1,000 mL, Mem oria saline 0.9% 6-10 Deangelo Rate: 200 l IV 1,000 mL 06:29: Brisa ml/hr, [place] 00 Infuse over: 5 hr, Route: IV, [...] janice 6-10 Deangelo Route: IV, l 06:28: [facility] Drug form: Her braden 00 INJ, ONCE, [...] janice 6-10 Deangelo Route: IV, l 06:28: [facility] Drug form: braden 00 INJ, ONCE, Priority: [...] janice 6-10 Deangelo Route: IV, l 06:28: [facility] Drug form: braden 00 INJ, ONCE, Priority: [...] mL, Route: l 04:01: Brown IVP, Drug [place] 00 form: INJ, ONCE, Priority: STAT, Start date: 11/28/11 23:01:00, Stop date: 11/28/11 23:01:00 metoclopram 2012-0 No Nikki 10 mg, 2 Memoria gadiel 6-10 Sarah mL, Route: l 04:01: Brown IVP, Drug [place] 00 form: INJ, ONCE, Priority: STAT, Start date: 11/28/11 23:01:00, Stop date: 11/28/11 23:01:00 metoclopram 2012-0 No Nikki 10 mg, 2 Memoria gadiel 6-10 Sarah mL, Route: l 04:01: Brown IVP, Drug [place] 00 form: INJ, ONCE, Priority: STAT, Start date: 11/28/11 23:01:00, Stop date: 11/28/11 23:01:00 metoclopram 2012-0 No Nikki 10 mg, 2 Memoria gadiel 6-10 Sarah mL, Route: l 04:01: Brown IVP, Drug [place] 00 form: INJ, ONCE, Priority: STAT, Start [...] mL, Route: l 02:31: Brown IVP, Drug [place] 00 form: INJ, ONCE, Priority: STAT, Start [...] mL, Route: l 02:31: Brown IVP, Drug [place] 00 form: INJ, ONCE, Priority: STAT, Start date: 11/28/11 21:31:00, Stop date: 11/28/11 21:31:00 NS (Bolus) No Arif Domenico 1,000 mL, Memoria IV 1,000 mL 11-27 Rate: l 22:48: 1,000 [place] 00 ml/hr, Infuse over: 1 hr, Route: [...] 1,000 mL 6- Rate: l 22:48: 1,000 [place] 00 ml/hr, Infuse over: 1 hr, Route: [...] 1,000 mL 6- Rate: l 22:48: 1,000 [place] 00 ml/hr, Infuse over: 1 hr, Route: [...] 1,000 mL 11-27 Rate: l 20:36: 1,000 [place] 00 ml/hr, Infuse over: 1 hr, Route: [...] 1,000 mL 11-27 Rate: l 20:36: 1,000 [place] 00 ml/hr, Infuse over: 1 hr, Route: IV, Dosing Weight 57.273 kg, Total Volume: 1,000, Start date: 11/28/11 15:36:00, Duration: 30 day, Stop date: 12/28/11 15:35:00 Ativan No Arif Domenico 2 mg, 1 Mem oria 6-09 mL, Route: l 20:35: IVP, Drug [place] 00 form: INJ, ONCE, Priority: STAT, Start date: 11/28/11 15:35:00, Stop date: 11/28/11 15:35:00 Ativan No Arif Domenico 2 mg, 1 Mem oria 6-09 mL, Route: l 20:35: IVP, Drug [place] 00 form: INJ, ONCE, Priority: STAT, Start date: 11/28/11 15:35:00, Stop date: 11/28/11 15:35:00 Ativan No Arif Domenico 2 mg, 1 Mem oria 6-09 mL, Route: l 20:35: IVP, Drug [place] 00 form: INJ, ONCE, Priority: STAT, Start date: 11/28/11 15:35:00, Stop date: 11/28/11 15:35:00 Ativan No Arif Domenico 2 mg, 1 Mem oria 6-09 mL, Route: l 20:35: IVP, Drug Vin 00 form: INJ, ONCE, Priority: STAT, Start date: 11/28/11 15:35:00, Stop date: 11/28/11 15:35:00 Ativan No Arif Domenico 2 mg, 1 Mem oria 6-09 mL, Route: l 20:35: IVP, Drug [place] 00 form: INJ, ONCE, Priority: STAT, Start date: 11/28/11 15:35:00, Stop date: 11/28/11 15:35:00 Novolin R 2011- Yes Hughes-Jason 8 unit, M emoria 100 3-30 [place] SUB-Q, l units/mL 17:47: Dawson Q12H, 2 He rmann injectable 42 Pu vial, solution Substituti on Allowed, SOLN Novolin R Yes Hughes-Jason 8 unit, M emoria 100 3-30 [place] SUB-Q, l units/mL 17:47: [place] Q12H, 2 He rmann injectable 42 Pu vial, solution Substituti on Allowed, SOLN Novolin R Yes Hughes-Jason 8 unit, M emoria 100 3-30 [place] SUB-Q, l units/mL 17:47: [place] Q12H, 2 He rmann injectable 42 Pu vial, solution Substituti on Allowed, SOLN Novolin R Yes Hughes-Jason 8 unit, M emoria 100 3-30 [place] SUB-Q, l units/mL 17:47: Eunice Q12H, 2 He rmann injectable 42 Pu vial, solution Substituti on Allowed, SOLN Novolin R 2011- Yes Hughes-Jason 8 unit, M emoria 100 3-30 [place] SUB-Q, l units/mL 17:47: [place] Q12H, 2 He rmann injectable 42 Pu vial, solution Substituti on Allowed, SOLN Novolin N Yes Hughes-Jasno 10 unit, Memoria 100 3-30 [place] SUB-Q, l units/mL 17:46: Dawson Bedtime, H ermann subcutaneou 27 Pu 10 ml, s injection Substituti on Allowed, SUSP Novolin N Yes Hughes-Jason 10 unit, Memoria 100 3-30 [place] SUB-Q, l units/mL 17:46: Dawson Bedtime, H ermann subcutaneou 27 Pu 10 ml, s injection Substituti on Allowed, SUSP Novolin N Yes Hughes-Jason 10 unit, Memoria 100 3-30 [place] SUB-Q, l units/mL 17:46: Dawson Bedtime, H ermann subcutaneou 27 Pu 10 ml, s injection Substituti on Allowed, SUSP Novolin N Yes Hughes-Jason 10 unit, Memoria 100 3-30 [place] SUB-Q, l units/mL 17:46: Dawson Bedtime, H ermann subcutaneou 27 Pu 10 ml, s injection Substituti on Allowed, SUSP Novolin N Yes Hughes-Jason 10 unit, Memoria 100 3-30 [place] SUB-Q, l units/mL 17:46: Dawson Bedtime, H ermann subcutaneou 27 Pu 10 ml, s injection Substituti on Allowed, SUSP Novolin N Yes Hughes-Jason 14 unit, Memoria 100 3-30 [place] SUB-Q, l units/mL 17:44: Dawson QAM, 1 Her braden subcutaneou 37 Pu vial, s injection Substituti on Allowed, SUSP Novolin N 2011- Yes Hughes-Jason 14 unit, Memoria 100 3-30 [place] SUB-Q, l units/mL 17:44: Dawson QAM, 1 Her braden subcutaneou 37 Pu vial, s injection Substituti on Allowed, SUSP Novolin N 2011-0 Yes Hughes-Jason 14 unit, Memoria 100 3-30 [place] SUB-Q, l units/mL 17:44: Dawson QAM, 1 Her braden subcutaneou 37 Pu vial, s injection Substituti on Allowed, SUSP Novolin N Yes Hughes-Jason 14 unit, Memoria 100 3-30 [place] SUB-Q, l units/mL 17:44: Dawson QAM, 1 Her braden subcutaneou 37 Pu vial, s injection Substituti on Allowed, SUSP Novolin N Yes Hughes-Jason 14 unit, Memoria 100 3-30 [place] SUB-Q, l units/mL 17:44: Dawson QAM, 1 Her braden subcutaneou 37 Pu vial, s injection Substituti on Allowed, SUSP magnesium 0 No Hughes-Jason 400 mg, 1 Memoria oxide 3-30 [place] tab, l 14:55: Dawson Route: PO, Her braden 00 Pu Drug form: TAB, ONCE, Priority: STAT, Start date: 09/18/11 9:55:00, Stop date: 09/18/11 9:55:00 magnesium 2011-0 No Hughes-Jason 400 mg, 1 Memoria oxide 3-30 [place] tab, l 14:55: Dawson Route: PO, Her braden 00 Pu Drug form: TAB, ONCE, Priority: STAT, Start date: 09/18/11 9:55:00, Stop date: 09/18/11 9:55:00 magnesium 2011-0 No Hughes-Jason 400 mg, 1 Memoria oxide 3-30 [place] tab, l 14:55: Dawson Route: PO, Her braden 00 Pu Drug form: TAB, ONCE, Priority: STAT, Start date: 09/18/11 9:55:00, Stop date: 09/18/11 9:55:00 magnesium 2011-0 No Hughes-Jason 400 mg, 1 Memoria oxide 3-30 [place] tab, l 14:55: Dawson Route: PO, Her braden 00 Pu Drug form: TAB, ONCE, Priority: STAT, Start date: 09/18/11 9:55:00, Stop date: 09/18/11 9:55:00 magnesium 2011-0 No Hughes-Jason 400 mg, 1 Memoria oxide 3-30 [place] tab, l 14:55: Dawson Route: PO, Her braden 00 Pu Drug form: TAB, ONCE, Priority: STAT, Start date: 09/18/11 9:55:00, Stop date: 09/18/11 9:55:00 Insulin 2011-0 No Hughes-Jason 8 unit, Mem oria regular 3-30 [place] 0.08 mL, l 14:22: Dawson Route: Vin 00 Pu SUB-Q, Drug form: SOLN, ONCE, Priority: STAT, Start date: 09/18/11 9:22:00, Stop date: 09/18/11 9:22:00 Insulin 2011-0 No Hughes-Jason 8 unit, Mem oria regular 3-30 [place] 0.08 mL, l 14:22: Dawson Route: Pu SUB-Q, Drug form: SOLN, ONCE, Priority: STAT, Start date: 09/18/11 9:22:00, Stop date: 09/18/11 9:22:00 Insulin 2011-0 No Hughes-Jason 8 unit, Mem oria regular 3-30 [place] 0.08 mL, l 14:22: Dawson Route: Vin 00 Pu SUB-Q, Drug form: SOLN, ONCE, Priority: STAT, Start date: 09/18/11 9:22:00, Stop date: 09/18/11 9:22:00 Insulin 2011-0 No Hughes-Jason 8 unit, Mem oria regular 3-30 [place] 0.08 mL, l 14:22: Dawson Route: Vin 00 Pu SUB-Q, Drug form: SOLN, ONCE, Priority: STAT, Start date: 09/18/11 9:22:00, Stop date: 09/18/11 9:22:00 Insulin 2011-0 No Hughes-Jason 8 unit, Mem oria regular 3-30 [place] 0.08 mL, l 14:22: Dawson Route: [place] 00 Pu SUB-Q, Drug form: SOLN, ONCE, Priority: STAT, Start date: 09/18/11 9:22:00, Stop date: 09/18/11 9:22:00 Lactated 2011-0 No Hughes-Jason 1,000 mL, Memoria Ringers 3-30 [place] Rate: l (Bolus) IV 14:16: Dawson 1,000 He rmann 1,000 mL 00 Pu ml/hr, Infuse over: 1 hr, Route: IV, Total Volume: 1,000, Bolus Dose, Priority: STAT, Start date: 09/18/11 9:16:00, Duration: 1 doses or times, Stop date: 09/18/11 10:15:00 Lactated 2012-0 No Hughes-Jason 1,000 mL, Memoria Ringers 3-30 [place] Rate: l (Bolus) IV 14:16: Dawson 1,000 He rmann 1,000 mL 00 Pu ml/hr, Infuse over: 1 hr, Route: IV, Total Volume: 1,000, Bolus Dose, Priority: STAT, Start date: 09/18/11 9:16:00, Duration: 1 doses or times, Stop date: 09/18/11 10:15:00 Lactated 2012-0 No Hughes-Jason 1,000 mL, Memoria Ringers 3-30 [place] Rate: l (Bolus) IV 14:16: Dawson 1,000 He rmann 1,000 mL 00 Pu ml/hr, Infuse over: 1 hr, Route: IV, Total Volume: 1,000, Bolus Dose, Priority: STAT, Start date: 09/18/11 9:16:00, Duration: 1 doses or times, Stop date: 09/18/11 10:15:00 Lactated 2012-0 No Hughes-Jason 1,000 mL, Memoria Ringers 3-30 [place] Rate: l (Bolus) IV 14:16: Dawson 1,000 He rmann 1,000 mL 00 Pu ml/hr, Infuse over: 1 hr, Route: IV, Total Volume: 1,000, Bolus Dose, Priority: STAT, Start date: 09/18/11 9:16:00, Duration: 1 doses or times, Stop date: 09/18/11 10:15:00 Lactated 2012-0 No Hughes-Jason 1,000 mL, Memoria Ringers 3-30 [place] Rate: l (Bolus) IV 14:16: [place] 1,000 He rmann 1,000 mL 00 Pu ml/hr, Infuse over: 1 hr, Route: IV, Total Volume: 1,000, Bolus Dose, Priority: STAT, Start date: 09/18/11 9:16:00, Duration: 1 doses or times, Stop date: 09/18/11 10:15:00 Sodium 2012-0 No Hughes-Jason 1,000 mL, Me moria Chloride 3-30 [place] Rate: l 0.9% 14:06: [place] 1,000 [place] (Bolus) IV 00 Pu ml/hr, 1000 mL Infuse over: 1 hr, Route: IV, kg, Total Volume: 1,000, Bolus Dose, Priority: STAT, Start date: 09/18/11 9:06:00, Duration: 1 doses or times, Stop date: 09/18/11 10:05:00 Sodium 2012-0 No Hughes-Jason 1,000 mL, Me moria Chloride 3-30 [place] Rate: l 0.9% 14:06: Dawson 1,000 Vin (Bolus) IV 00 Pu ml/hr, 1000 mL Infuse over: 1 hr, Route: IV, kg, Total Volume: 1,000, Bolus Dose, Priority: STAT, Start date: 09/18/11 9:06:00, Duration: 1 doses or times, Stop date: 09/18/11 10:05:00 Sodium 2012-0 No Hughes-Jason 1,000 mL, Me moria Chloride 3-30 [place] Rate: l 0.9% 14:06: Dawson 1,000 Vin (Bolus) IV 00 Pu ml/hr, 1000 mL Infuse over: 1 hr, Route: IV, kg, Total Volume: 1,000, Bolus Dose, Priority: STAT, Start date: 09/18/11 9:06:00, Duration: 1 doses or times, Stop date: 09/18/11 10:05:00 Sodium 2012-0 No Hughes-Jason 1,000 mL, Me moria Chloride 3-30 [place] Rate: l 0.9% 14:06: Dawson 1,000 Vin (Bolus) IV 00 Pu ml/hr, 1000 mL Infuse over: 1 hr, Route: IV, kg, Total Volume: 1,000, Bolus Dose, Priority: STAT, Start date: 09/18/11 9:06:00, Duration: 1 doses or times, Stop date: 09/18/11 10:05:00 Sodium 2012-0 No Hughes-Jason 1,000 mL, Me moria Chloride 3-30 [place] Rate: l 0.9% 14:06: Dawson 1,000 [place] (Bolus) IV 00 Pu ml/hr, 1000 mL [...] Memoria azole 3-30 on Allowed l 14:04: [place] 58 sulfamethox 2012-0 Yes Substituti Memoria azole 3-30 on Allowed l 14:04: [place] 58 Sodium 2012-0 No Hughes-Jason 1,000 mL, Me moria Chloride 3-30 [place] Rate: l 0.9% 13:56: Dawson 1,000 [place] (Bolus) IV 00 Pu ml/hr, 1000 mL Infuse over: 1 hr, Route: IV, kg, Total Volume: 1,000, [place] Dose, Priority: STAT, Start date: 09/18/11 8:56:00, Duration: 1 doses or times, Stop date: 09/18/11 9:55:00 Sodium 2012-0 No Hughes-Jason 1,000 mL, Me moria Chloride 3-30 [place] Rate: l 0.9% 13:56: Dawson 1,000 [place] (Bolus) IV 00 Pu ml/hr, 1000 mL Infuse over: 1 hr, Route: IV, kg, Total Volume: 1,000, [place]us Dose, Priority: STAT, Start date: 09/18/11 8:56:00, Duration: 1 doses or times, Stop date: 09/18/11 9:55:00 Sodium 2012-0 No Hughes-Jason 1,000 mL, Me moria Chloride 3-30 [place] Rate: l 0.9% 13:56: Dawson 1,000 [place] (Bolus) IV 00 Pu ml/hr, 1000 mL Infuse over: 1 hr, Route: IV, kg, Total Volume: 1,000, [place]us Dose, Priority: STAT, Start date: 09/18/11 8:56:00, Duration: 1 doses or times, Stop date: 09/18/11 9:55:00 Sodium 2012-0 No Hughes-Jason 1,000 mL, Me moria Chloride 3-30 [place] Rate: l 0.9% 13:56: Dawson 1,000 [place] (Bolus) IV 00 Pu ml/hr, 1000 mL Infuse over: 1 hr, Route: IV, kg, Total Volume: 1,000, [place] Dose, Priority: STAT, Start date: 09/18/11 8:56:00, Duration: 1 doses or times, Stop date: 09/18/11 9:55:00 Sodium 2012-0 No Hughes-Jason 1,000 mL, Me moria Chloride 3-30 [place] Rate: l 0.9% 13:56: Dawson 1,000 [place] (Bolus) IV 00 Pu ml/hr, 1000 mL Infuse over: 1 hr, Route: IV, kg, Total Volume: 1,000, [place] Dose, Priority: STAT, Start date: 09/18/11 8:56:00, Duration: 1 doses or times, Stop date: 09/18/11 9:55:00 clindamycin 2012-0 No Eber L 300 mg, 2 Memoria 3-21 Anabelle cap, l 21:00: Route: PO, [place] 00 Drug form: CAP, Q8H, Start date: [...] 3-21 Anabelle cap, l 21:00: Route: PO, [place] 00 Drug form: CAP, Q8H, Start date: 09/09/11 16:00:00, Duration: 30 day, Stop date: 10/09/11 8:00:00 clindamycin 2012-0 No Eber L 300 mg, 2 Memoria 3-21 Anabelle cap, l 21:00: Route: PO, [place] Drug form: CAP, Q8H, Start date: 09/09/11 [...] 3-21 Amelia cap, PO, l capsule 18:47: [place] BID, 60 Her braden 19 cap, Substituti on Allowed, CAP Colace 100 0 Yes Luna 100 mg, 1 Memoria mg oral 3-21 Amelia cap, PO, l capsule 18:47: [place] BID, 60 Her braden 19 cap, Substituti on Allowed, CAP Colace 100 2011-0 Yes Luna 100 mg, 1 Memoria mg oral 3-21 Amelia cap, PO, l capsule 18:47: [place] BID, 60 Her braden 19 cap, Substituti on Allowed, CAP Colace 100 2011-0 Yes Luna 100 mg, 1 Memoria mg oral 3-21 Amelia cap, PO, l capsule 18:47: [place] BID, 60 Her braden 19 cap, Substituti on Allowed, CAP Colace 100 2011-0 Yes Luna 100 mg, 1 Memoria mg oral 3-21 Amelia cap, PO, l capsule 18:47: [place] BID, 60 Her braden 19 cap, Substituti [...] 3-21 Amelia cap, PO, l capsule 18:46: [place] Q8H, 30 Her braden 55 cap, Substituti on Allowed, CAP clindamycin Yes Luna 300 mg, 2 Memoria 150 mg oral 3-21 Amelia cap, PO, l capsule 18:46: Zeeshan Q8H, 30 Her braden 55 cap, Substituti on Allowed, CAP [place] Yes Luna 1 tab, PO, Memoria 10/325 oral 3-21 Amelia Q4H, PRN, l tablet 18:46: Zeeshan 30 tab, Herm naeem 36 Pain, Substituti on Allowed, Maintenanc e, TAB [place] Yes Luna 1 tab, PO, Memoria 10/325 oral 3-21 Amelia Q4H, PRN, l tablet 18:46: [place] 30 tab, Herm naeem 36 Pain, Substituti on Allowed, Maintenanc e, TAB [place] Yes Luna 1 tab, PO, Memoria 10/325 oral 3-21 Amelia Q4H, PRN, l tablet 18:46: [place] 30 tab, Herm naeem 36 Pain, Substituti on Allowed, Maintenanc e, TAB [place] Yes Luna 1 tab, PO, Memoria 10/325 oral 3-21 Amelia Q4H, PRN, l tablet 18:46: [place] 30 tab, Herm naeem 36 Pain, Substituti on Allowed, Maintenanc e, TAB [place] Yes Luna 1 tab, PO, Memoria 10/325 oral 3-21 Amelia Q4H, PRN, l tablet 18:46: [place] 30 tab, Herm naeem 36 Pain, Substituti on Allowed, Maintenanc e, TAB [place] No Hollie Donavan 1 tab, Mendoza janice 10/325 oral 3-21 Mahi Route: PO, l tablet 09:00: Drug Form: Nidia nn 00 TAB, Q4H, Start date: 09/09/11 4:00:00, Duration: 30 day, Stop date: 10/09/11 0:00:00 [place] No Hollie Donavan 1 tab, Mendoza janice 10/325 oral 3-21 Mahi Route: PO, l tablet 09:00: Drug Form: Nidia nn 00 TAB, Q4H, Start date: 09/09/11 4:00:00, Duration: 30 day, Stop date: 10/09/11 0:00:00 [place] No Hollie Donavan 1 tab, Mendoza janice 10/325 oral 3-21 Mahi Route: PO, l tablet 09:00: Drug Form: Nidia nn 00 TAB, Q4H, Start date: 09/09/11 4:00:00, Duration: 30 day, Stop date: 10/09/11 0:00:00 [place] 0 No Hollie Donavan 1 tab, Mendoza janice 10/325 oral 3-21 Mahi Route: PO, l tablet 09:00: Drug Form: Nidia nn 00 TAB, Q4H, Start date: 09/09/11 4:00:00, Duration: 30 day, Stop date: 10/09/11 0:00:00 [place] 0 No Hollie Donavan 1 tab, Mendoza [...] 3-19 Omidvar tab, l 15:30: Route: PO, [place] 00 Drug form: TAB, Daily, Start date: 09/07/11 10:30:00, Duration: 30 day, Stop date: 10/07/11 9:00:00 enalapril 2011-0 No [place] 5 mg, 1 Mem oria 3-19 Omidvar tab, l 15:30: Route: PO, [place] Drug form: TAB, Daily, Start date: 09/07/11 10:30:00, Duration: 30 day, Stop date: 10/07/11 9:00:00 enalapril 2011-0 No [place] 5 mg, 1 Mem oria 3-19 Omidvar tab, l 15:30: Route: PO, [place] 00 Drug form: TAB, Daily, Start date: 09/07/11 10:30:00, Duration: 30 day, Stop date: 10/07/11 9:00:00 flumazenil 0 No Gayle 0.2 mg, 2 Memoria 3-19 Josefina mL, Route: l 14:19: [place] IVP, Drug Jake n 00 form: INJ, PRN, PRN Benzodiaze pine Reversal, Initial dose, Start date: 09/07/11 9:19:00, Duration: 1 day, Stop date: 09/08/11 9:18:00 naloxone 2011- No Gayle 0.04 mg, Me moria 3-19 Josefina 0.1 mL, l 14:19: [place] Route: [place] 00 IVP, Drug form: INJ, Q2MIN, PRN [...] Memoria 3-19 Josefina mL, Route: l 14:19: [place] IVP, Drug Jake n 00 form: INJ, PRN, PRN Benzodiaze pine Reversal, Initial dose, Start date: 09/07/11 9:19:00, Duration: 1 day, Stop date: 09/08/11 9:18:00 naloxone 0 No Gayle 0.04 mg, Me moria 3-19 Josefina 0.1 mL, l 14:19: [place] Route: [place] 00 IVP, Drug form: INJ, Q2MIN, PRN Narcotic Reversal, Start date: 09/07/11 9:19:00, Duration: 8 doses or times, Stop date: Limited # of times ondansetron No Gayle 4 mg, 2 Memoria 3-19 Josefina mL, Route: l 14:19: [place] IVP, Drug Jake n 00 form: INJ, [...] Josefina Route: PO, l one 325 14:19: [place] Drug Form: He rmann mg-10 mg/15 00 SOLN, Q4H, mL oral PRN Pain solution Score 4-6, Start date: 09/07/11 9:19:00, Duration: 1 day, Stop date: 09/08/11 8:00:00 flumazenil 2011-0 No Gayle 0.2 mg, 2 Memoria 3-19 Josefina mL, Route: l 14:19: [place] IVP, Drug Jake n 00 form: INJ, PRN, PRN Benzodiaze pine Reversal, Initial dose, Start date: 09/07/11 9:19:00, Duration: 1 day, Stop date: 09/08/11 9:18:00 naloxone 2011-0 No Gayle 0.04 mg, Me moria 3-19 Josefina 0.1 mL, l 14:19: [place] Route: Vin 00 IVP, Drug form: INJ, Q2MIN, PRN Narcotic Reversal, Start date: 09/07/11 9:19:00, Duration: 8 doses or times, Stop date: Limited # of times ondansetron No Gayle 4 mg, 2 Memoria 3-19 Josefina mL, Route: l 14:19: [place] IVP, Drug Jake n 00 form: INJ, ONCE, PRN Nausea & Vomiting, Start date: 09/07/11 9:19:00 hydromorpho No Gayle 0.5 mg, Memoria ne 3-19 Josefina 0.25 mL, l 14:19: [place] Route: Vin 00 IVP, Drug form: INJ, Q5Min, PRN Pain Score 4-6, Start date: 09/07/11 9:19:00, Duration: 5 doses or times, Stop date: Limited # of times acetaminoph No Gayle 15 mL, M emoria en-hydrocod 3-19 Josefina Route: PO, l one 325 14:19: [place] Drug Form: He rmann mg-10 mg/15 00 [...] Josefina 0.1 mL, l 14:19: [place] Route: [place] 00 IVP, Drug form: INJ, Q2MIN, PRN [...] Memoria 3-19 Josefina mL, Route: l 14:19: [place] IVP, Drug Jake n 00 form: INJ, PRN, PRN Benzodiaze pine Reversal, Initial dose, Start date: 09/07/11 9:19:00, Duration: 1 day, Stop date: 09/08/11 9:18:00 naloxone No Gayle 0.04 mg, Me moria 3-19 Josefina 0.1 mL, l 14:19: [place] Route: [place] 00 IVP, Drug form: INJ, Q2MIN, PRN [...] Rate: 125 l 1,000 mL 14:06: ml/hr, [place] 00 Infuse over: 8 hr, Route: IV, [...] 30 day, Stop date: 10/07/11 9:05:00 clindamycin 2012-0 No Maximo R 600 mg, Memoria 3-19 Arias Route: l 13:31: IVPB, Vin 00 ONCE, Start date: 09/07/11 8:31:00, Stop date: 09/07/11 8:31:00 clindamycin 2012-0 No Maximo R 600 mg, Memoria 3-19 Arias Route: l 13:31: IVPB, [place] 00 ONCE, Start date: 09/07/11 8:31:00, Stop date: 09/07/11 8:31:00 clindamycin 2011-0 No Maximo R 600 mg, Memoria 3-19 Arias Route: l 13:31: IVPB, [place] 00 ONCE, Start date: 09/07/11 8:31:00, Stop date: 09/07/11 8:31:00 clindamycin No Maximo R 600 mg, Memoria 3-19 Arias Route: l 13:31: IVPB, [place] 00 ONCE, Start date: 09/07/11 8:31:00, Stop date: 09/07/11 8:31:00 clindamycin No Maximo R 600 mg, Memoria - Arias Route: l 13:31: IVPB, [place] 00 ONCE, Start date: 09/07/11 8:31:00, Stop [...] l IV 1,000 mL 05:00: ml/hr, Herm naeme 00 Infuse over: 10 hr, Route: IV, [...] 3-17 Wong tab, l 04:00: Route: PO, [place] 00 Drug form: ECTAB, Daily, PRN Constipati on, Priority: NOW, Start date: 09/04/11 23:00:00, Duration: 30 day, Stop date: 10/04/11 22:59:00 Dulcolax 2012-0 No Charbel A 10 mg, 2 M emoria Laxative 3-17 Wong tab, l 04:00: Route: PO, [place] 00 Drug form: ECTAB, Daily, PRN Constipati on, Priority: NOW, Start date: 09/04/11 23:00:00, Duration: 30 day, Stop date: 10/04/11 22:59:00 Dulcolax 2012-0 No Charbel A 10 mg, 2 M emoria Laxative 3-17 Wong tab, l 04:00: Route: PO, [place] 00 Drug form: ECTAB, Daily, PRN Constipati [...] Duration: 30 day, Stop date: 10/04/11 18:10:00 [place] 2012-0 No Mahammad 1 tab, Memori a 10/325 oral 3-16 Simeon Route: PO, l tablet 17:00: Dez Drug Form: Tyrel rmann 00 TAB, Q4H, Start date: 09/04/11 12:00:00, Duration: 30 day, Stop date: 10/04/11 8:00:00 [place] 2012-0 No Mahammad 1 tab, Memori a 10/325 oral 3-16 Simeon Route: PO, l tablet 17:00: Dez Drug Form: Tyrel rmann 00 TAB, Q4H, Start date: 09/04/11 12:00:00, Duration: 30 day, Stop date: 10/04/11 8:00:00 [place] 2012-0 No Mahammad 1 tab, Memori a 10/325 oral 3-16 Simeon Route: PO, l tablet 17:00: Dez Drug Form: Tyrel rmann 00 TAB, Q4H, Start date: 09/04/11 12:00:00, Duration: 30 day, Stop date: 10/04/11 8:00:00 [place] 2012-0 No Mahammad 1 tab, Memori a 10/325 oral 3-16 Simeon Route: PO, l tablet 17:00: Dez Drug Form: Tyrel rmann 00 TAB, Q4H, Start date: 09/04/11 12:00:00, Duration: 30 day, Stop date: 10/04/11 8:00:00 [place] 2012-0 No Mahammad 1 tab, Memori a [...] Kavon mL, Route: l 14:50: IVP, Drug [place] 00 form: INJ, ONCE, PRN Nausea & [...] 10cc/hr, l - site 1 14:50: Route: [place] 400 mL 00 NERVE BLOCK, Start date: 09/04/11 9:50:00 400 mL, Duration: 30 day, Stop date: 10/04/11 9:49:00 naloxone 2011-0 No Rosalino 0.04 mg, Me moria 3-16 Kavon 0.1 mL, l 14:50: Route: [place] IVP, Drug form: INJ, Q2MIN, PRN Narcotic [...] 10cc/hr, l - site 1 14:50: Route: [place] 400 mL 00 NERVE BLOCK, Start date: 09/04/11 9:50:00 400 mL, Duration: 30 day, Stop date: 10/04/11 9:49:00 naloxone 2011-0 No Rosalino 0.04 mg, Me moria 3-16 Kavon 0.1 mL, l 14:50: Route: [place] IVP, Drug form: INJ, Q2MIN, PRN Narcotic [...] 10cc/hr, l - site 1 14:50: Route: [place] 400 mL 00 NERVE BLOCK, Start date: 09/04/11 9:50:00 400 mL, Duration: 30 day, Stop date: 10/04/11 9:49:00 naloxone 2012-0 No Rosalino 0.04 mg, Me moria 3-16 Kavon 0.1 mL, l 14:50: Route: [place] 00 IVP, Drug form: INJ, Q2MIN, PRN Narcotic Reversal, Start date: 09/04/11 9:50:00, Duration: 30 day, Stop date: 10/04/11 9:49:00 [place] No [place] 1 tab, Memoria 10/325 oral 3-16 Omidvar Route: PO, l tablet 14:49: Drug Form: Nidia nn 00 TAB, Q4H, PRN Pain, Start date: 09/04/11 9:49:00, Stop date: 10/04/11 9:48:00 [place] No [place] 1 tab, Memoria 10/325 oral 3-16 Omidvar Route: PO, l tablet 14:49: Drug Form: Nidia nn 00 TAB, Q4H, PRN Pain, Start date: 09/04/11 9:49:00, Stop date: 10/04/11 9:48:00 [place] 0 No [place] 1 tab, Memoria 10/325 oral 3-16 Omidvar Route: PO, l tablet 14:49: Drug Form: Nidia nn 00 TAB, Q4H, PRN Pain, Start date: 09/04/11 9:49:00, Stop date: 10/04/11 9:48:00 [place] No [place] 1 tab, Memoria 10/325 oral 3-16 Omidvar Route: PO, l tablet 14:49: Drug Form: Nidia nn 00 TAB, Q4H, PRN Pain, Start date: 09/04/11 9:49:00, Stop date: 10/04/11 9:48:00 [place] No [place] 1 tab, Memoria 10/325 oral 3-16 Omidvar Route: PO, l tablet 14:49: Drug Form: Nidia nn 00 TAB, Q4H, PRN Pain, Start date: 09/04/11 9:49:00, Stop date: 10/04/11 9:48:00 labetalol No Gregory F 5 mg, Mendoza janice 3-16 [place] Route: IV, l 14:40: ONCE, [place] 00 Start date: 09/04/11 9:40:00, Stop date: [...] Beck 0.5 mL, l 13:37: Hayden Route: [place] 00 IVP, Drug form: INJ, Q30Min, PRN [...] 3-16 Kavon 0.25 mL, l 13:37: Route: [place] 00 IVP, Drug form: INJ, Q5Min, PRN Pain Score 4-6, Start date: 09/04/11 8:37:00, Duration: 5 doses or times, Stop date: Limited # of times ondansetron 2011-0 No Hollie 4 mg, 2 Me moria 3-16 Beck mL, Route: l 13:37: [place] IVP, Drug Nidia form: INJ, ONCE, PRN Nausea & Vomiting, [...] 3-16 Kavon 0.25 mL, l 13:37: Route: [place] 00 IVP, Drug form: INJ, Q5Min, PRN [...] 3-16 Kavon 0.25 mL, l 13:37: Route: [place] 00 IVP, Drug form: INJ, Q5Min, PRN [...] Beck 0.1 mL, l 13:37: Hayden Route: [place] 00 IVP, Drug form: INJ, Q2MIN, PRN [...] 3-16 Kavon 0.25 mL, l 13:37: Route: [place] 00 IVP, Drug form: INJ, Q5Min, PRN Pain Score 4-6, Start date: 09/04/11 8:37:00, Duration: 5 doses or times, Stop date: Limited # of times clindamycin No Eber L 600 mg, 4 Memoria 3-15 Anabelle mL, Route: l 16:00: IVPB, [place] 00 [id number], Start date: 09/03/11 11:00:00, Duration: 30 day, Stop date: 10/03/11 8:00:00 clindamycin 2012-0 No Eber L 600 mg, 4 Memoria 3-15 Anabelle mL, Route: l 16:00: IVPB, [place] 00 [id number], Start date: 09/03/11 11:00:00, Duration: 30 day, Stop date: 10/03/11 8:00:00 clindamycin 2012-0 No Eber L 600 mg, 4 Memoria 3-15 Anabelle mL, Route: l 16:00: IVPB, Vin 00 [id number], Start date: 09/03/11 11:00:00, Duration: 30 day, Stop date: 10/03/11 8:00:00 clindamycin 2012-0 No Eber L 600 mg, 4 Memoria 3-15 Anabelle mL, Route: l 16:00: IVPB, [place] 00 [id number], Start date: 09/03/11 11:00:00, Duration: 30 day, Stop date: 10/03/11 8:00:00 clindamycin 2012-0 No Eber L 600 mg, 4 Memoria 3-15 Anabelle mL, Route: l 16:00: IVPB, [place] 00 [id number], Start date: 09/03/11 11:00:00, Duration: [...] -15 Omidvar tab, l 13:39: Route: PO, Vin 00 Drug form: ERTAB, ONCE, Start date: 09/03/11 8:39:00, Stop date: 09/03/11 8:39:00 [place] 5/325 2011-0 No Rosalino 1 tab, M emoria oral tablet 09-02 [facility] Route: PO, l 05:00: Drug Form: Vin 00 TAB, Q4H, Start date: 09/03/11 0:00:00, Duration: 30 day, Stop date: 10/02/11 20:00:00 [place] 5/325 2011-0 No Rosalino 1 tab, M emoria oral tablet 09-02 [facility] Route: PO, l 05:00: Drug Form: Vin 00 TAB, Q4H, Start date: 09/03/11 0:00:00, Duration: 30 day, Stop date: 10/02/11 20:00:00 [place] 5/325 2011-0 No Rosalino 1 tab, M emoria oral tablet 09-02 [facility] Route: PO, l 05:00: Drug Form: Vin 00 TAB, Q4H, Start date: 09/03/11 0:00:00, Duration: 30 day, Stop date: 10/02/11 20:00:00 [place] 5/325 2011-0 No Rosalino 1 tab, M emoria oral tablet 09-02 [facility] Route: PO, l 05:00: Drug Form: Vin 00 TAB, Q4H, Start date: 09/03/11 0:00:00, Duration: 30 day, Stop date: 10/02/11 20:00:00 [place] 5/325 2011-0 No Rosalino 1 tab, M emoria oral tablet 3-15 Kavon Route: PO, l 05:00: Drug Form: [place] 00 TAB, Q4H, Start date: 09/03/11 0:00:00, [...] 30 day, Stop date: 10/01/11 21:00:00 Geodon 2011-0 No Eber L 120 mg, 3 Memoria 3-15 Anabelle cap, l 02:00: Route: PO, [place] 00 Drug form: CAP, Bedtime, Start date: [...] 3-14 Anabelle cap, l 17:00: Route: PO, [place] 00 Drug form: ERCAP, Daily, Give qAM after today's dose., Start date: 09/02/11 12:00:00, Duration: 30 day, Stop date: 10/02/11 9:00:00 Effexor XR 2012-0 No Eber L 75 mg, 1 Memoria 3-14 Anabelle cap, l 17:00: Route: PO, Vin 00 Drug form: ERCAP, Daily, Give qAM after today's dose., Start date: 09/02/11 12:00:00, Duration: 30 day, Stop date: 10/02/11 9:00:00 [place] 5/325 2011-0 No Rosalino 1 tab, M emoria oral tablet 09-01 Kavon Route: PO, l 16:25: Drug Form: [place] 00 TAB, Q4H, PRN Pain, Start date: 09/02/11 11:25:00, Duration: 30 day, Stop date: 10/02/11 11:24:00 [place] 5/325 2011-0 No Rosalino 1 tab, M emoria oral tablet 09-01 Kavon Route: PO, l 16:25: Drug Form: Vin 00 TAB, Q4H, PRN Pain, Start date: 09/02/11 11:25:00, Duration: 30 day, Stop date: 10/02/11 11:24:00 [place] 5/325 2011-0 No Rosalino 1 tab, M emoria oral tablet 09-01 Kavon Route: PO, l 16:25: Drug Form: [place] 00 TAB, Q4H, PRN Pain, Start date: 09/02/11 11:25:00, Duration: 30 day, Stop date: 10/02/11 11:24:00 [place] 5/325 2011-0 No Rosalino 1 tab, M emoria oral tablet -14 Kavon Route: PO, l 16:25: Drug Form: Vin 00 TAB, Q4H, PRN Pain, Start date: 09/02/11 11:25:00, Duration: 30 day, Stop date: 10/02/11 11:24:00 [place] /325 2011-0 No Rosalino 1 tab, M emoria oral tablet 09-01 [facility] Route: PO, l 16:25: Drug Form: [place] 00 TAB, Q4H, PRN Pain, Start date: [...] Omidvar mL, Route: l 16:15: IVPB, Drug [place] 00 form: INJ, ONCE, Start date: 09/02/11 11:15:00, Stop date: 09/02/11 11:15:00 magnesium 2011-0 No [place] 4 gm, 50 Me moria sulfate 3-14 Omidvar mL, Route: l 16:15: IVPB, Drug [place] 00 form: INJ, ONCE, Start date: 09/02/11 11:15:00, Stop date: 09/02/11 11:15:00 magnesium 2011-0 No [place] 4 gm, 50 Me moria sulfate 3-14 Omidvar mL, Route: l 16:15: IVPB, Drug [place] 00 form: INJ, ONCE, Start date: 09/02/11 11:15:00, Stop date: 09/02/11 11:15:00 Lovenox 2012-0 No Missael 40 mg, 0.4 Mem oria 3-14 Movva mL, Route: l 14:00: SUB-Q, Vin 00 Drug form: INJ, Daily, Start date: 09/02/11 9:00:00, Duration: 30 day, Stop date: 10/01/11 9:00:00 vancomycin 2011-0 No Eber L 1 gm, Memoria 3-14 Anabelle Route: l 14:00: IVPB, Drug [place] 00 form: INJ, [id number], Start date: 09/02/11 9:00:00, Duration: 30 day, Stop date: 10/01/11 21:00:00 Lovenox 2011-0 No Missael 40 mg, 0.4 Mem oria 3-14 Movva mL, Route: l 14:00: SUB-Q, [place] Drug form: INJ, Daily, Start date: 09/02/11 9:00:00, Duration: 30 day, Stop date: 10/01/11 9:00:00 vancomycin 2011-0 No Eber L 1 gm, Memoria 3-14 Anabelle Route: l 14:00: IVPB, Drug form: INJ, [id number], Start date: 09/02/11 9:00:00, Duration: 30 day, Stop date: 10/01/11 21:00:00 Lovenox 2011-0 No Missael 40 mg, 0.4 Mem oria 3-14 Movva mL, Route: l 14:00: SUB-Q, Vin Drug form: INJ, Daily, Start date: 09/02/11 9:00:00, Duration: 30 day, Stop date: 10/01/11 9:00:00 vancomycin 2011-0 No Eber L 1 gm, Memoria 3-14 Anabelle Route: l 14:00: IVPB, Drug [place] 00 form: INJ, [id number], Start date: 09/02/11 9:00:00, Duration: 30 day, Stop date: 10/01/11 21:00:00 Lovenox 2012-0 No Missael 40 mg, 0.4 Mem oria 3-14 Movva mL, Route: l 14:00: SUB-Q, [place] 00 Drug form: INJ, Daily, Start date: 09/02/11 9:00:00, Duration: 30 day, Stop date: 10/01/11 9:00:00 vancomycin 2011-0 No Eber L 1 gm, Memoria 3-14 Anabelle Route: l 14:00: IVPB, Drug [place] 00 form: INJ, [id number], Start date: 09/02/11 9:00:00, Duration: 30 day, Stop date: 10/01/11 21:00:00 Lovenox 2012-0 No Missael 40 mg, 0.4 Mem oria 3-14 Movva mL, Route: l 14:00: SUB-Q, Vin 00 Drug form: INJ, Daily, Start date: 09/02/11 9:00:00, Duration: 30 day, Stop date: 10/01/11 9:00:00 vancomycin 2011-0 No Eber L 1 gm, Memoria 3-14 Anabelle Route: l 14:00: IVPB, Drug Vin 00 form: INJ, [id number], Start date: 09/02/11 9:00:00, Duration: 30 day, Stop date: 10/01/11 21:00:00 clindamycin 2012-0 No Eber L 600 mg, 4 Memoria (SCIP) 3-14 Anabelle mL, Route: l 10:00: IVPB, [place] 00 [id number], Start date: 09/02/11 5:00:00, Duration: 3 doses or times, Stop date: 09/02/11 21:00:00 clindamycin 2012-0 No Eber L 600 mg, 4 Memoria (SCIP) 3-14 Anabelle mL, Route: l 10:00: IVPB, [place] 00 [id number], Start date: 09/02/11 5:00:00, Duration: 3 doses or times, Stop date: 09/02/11 21:00:00 clindamycin 2012-0 No Eber L 600 mg, 4 Memoria (SCIP) 3-14 Anabelle mL, Route: l 10:00: IVPB, [place] 00 [id number], Start date: 09/02/11 5:00:00, Duration: 3 doses or times, Stop date: 09/02/11 21:00:00 clindamycin 2012-0 No Eber L 600 mg, 4 Memoria (SCIP) 3-14 Anabelle mL, Route: l 10:00: IVPB, [place] 00 [id number], Start date: 09/02/11 5:00:00, Duration: [...] Brandon mL, Route: l 04:00: [place]ally IVPB, [place] 00 [id number], Start date: 09/01/11 23:00:00, Duration: [...] Brandon mL, Route: l 04:00: [place] IVPB, [place] 00 [id number], Start date: 09/01/11 23:00:00, Duration: [...] 2011-0 No [place] 15 unit, Mendoza janice isophane-[employer]GR[employer] REGISTERED NURSE 3-14 Omidvar 0.15 mL, l H 02:00: Route: Vin SUB-Q, Drug form: INJ, Q12H, Start date: 09/01/11 21:00:00, Stop date: 10/01/11 9:00:00 insulin 2011-0 No [place] 15 unit, Mendoza janice isophane-PROGR[employer] REGISTERED NURSE 3-14 Omidvar 0.15 mL, l H 02:00: Route: Vin SUB-Q, Drug form: INJ, Q12H, Start date: 09/01/11 21:00:00, Stop date: 10/01/11 9:00:00 insulin 2011-0 No [place] 15 unit, Mendoza janice isophane-PROGR[employer] REGISTERED NURSE 3-14 Omidvar 0.15 mL, l H 02:00: Route: Vin SUB-Q, Drug form: INJ, Q12H, Start date: 09/01/11 21:00:00, Stop date: 10/01/11 9:00:00 insulin 2011-0 No [place] 15 unit, Mendoza janice isophane-[facility] REGISTERED NURSE 3-14 Omidvar 0.15 mL, l H 02:00: Route: Vin SUB-Q, Drug form: INJ, Q12H, Start date: 09/01/11 21:00:00, Stop date: 10/01/11 9:00:00 insulin 2011-0 No [place] 15 unit, Mendoza janice isophane-[facility] REGISTERED NURSE 3-14 Omidvar 0.15 mL, l H 02:00: [...] 3-14 Barbra Route: l 01:07: Feliciano IVP, [place] 00 Q5Min, PRN Elevated BP, Start date: 09/01/11 20:07:00, Duration: 4 doses or times, Stop date: Limited # of times hydromorpho No Mariaelena-Corea 0.5 mg, Memoria ne 3-14 Barbra Route: l 01:07: Feliciano IVP, [place] 00 Q5Min, PRN Pain Score 4-6, Start [...] Barbra Route: l 01:07: Feliciano IVP, ONCE, [place] 00 PRN Nausea & Vomiting, Start date: 09/01/11 20:07:00 labetalol 0 No Mariaelena-Corea 5 mg, Me moria 3-14 Barbra Route: l 01:07: Feliciano IVP, Vin 00 Q5Min, PRN Elevated BP, Start date: 09/01/11 20:07:00, Duration: 5 doses or times, Stop date: Limited # of times hydrALAZINE No Mariaelena-Corea 5 mg, Memoria 3-14 Barbra Route: l 01:07: Feliciano IVP, [place] 00 Q5Min, PRN Elevated BP, Start date: 09/01/11 20:07:00, Duration: 4 doses or times, Stop date: Limited # of times hydromorpho No Mariaelena-Corea 0.5 mg, Memoria ne 3-14 Barbra Route: l 01:07: Feliciano IVP, [place] 00 Q5Min, PRN Pain Score 4-6, Start date: 09/01/11 20:07:00, Duration: 5 doses or times, Stop date: Limited # of times naloxone No Mariaelena-Corea 0.04 mg, Memoria 3-14 Barbra Route: l 01:07: Feliciano IVP, [place] 00 Q2MIN, PRN Narcotic Reversal, Start date: [...] Barbra Route: l 01:07: Feliciano IVP, ONCE, [place] 00 PRN Nausea & Vomiting, Start date: 09/01/11 20:07:00 labetalol No Mariaelena-Corea 5 mg, Me moria 3-14 Barbra Route: l 01:07: Feliciano IVP, Vin 00 Q5Min, PRN Elevated BP, Start date: 09/01/11 20:07:00, Duration: 5 doses or times, Stop date: Limited # of times hydrALAZINE 0 No Mariaelena-Corea 5 mg, Memoria 3-14 Barbra Route: l 01:07: Feliciano IVP, [place] 00 Q5Min, PRN Elevated BP, Start date: 09/01/11 20:07:00, Duration: 4 doses or times, Stop date: Limited # of times hydromorpho No Mariaelena-Corea 0.5 mg, Memoria ne 3-14 [place]bra Route: l 01:07: Feliciano IVP, [place] 00 Q5Min, PRN Pain Score 4-6, Start date: 09/01/11 20:07:00, Duration: 5 doses or times, Stop date: Limited # of times naloxone No Mariaelena-Corea 0.04 mg, Memoria 3-14 [place]bra Route: l 01:07: Feliciano IVP, [place] 00 Q2MIN, PRN Narcotic Reversal, Start date: [...] 3-14 Barbra Route: l 01:07: Feliciano IVP, [place] 00 Q5Min, PRN Pain Score 4-6, Start [...] Barbra Route: l 01:07: Feliciano IVP, ONCE, [place] 00 PRN Nausea & Vomiting, Start date: 09/01/11 20:07:00 labetalol No Mariaelena-Corea 5 mg, Me moria 3-14 Barbra Route: l 01:07: Feliciano IVP, [place] 00 Q5Min, PRN Elevated BP, Start date: 09/01/11 20:07:00, Duration: 5 doses or times, Stop date: Limited # of times hydrALAZINE No Mariaelena-Corea 5 mg, Memoria 3-14 [place]bra Route: l 01:07: Feliciano IVP, [place] 00 Q5Min, PRN Elevated BP, Start date: [...] 3-14 Gauvain Route: l 01:00: IVPB, Drug [place] 00 form: INJ, [id number], Start date: 09/01/11 20:00:00, Duration: 30 day, Stop date: 10/01/11 8:00:00 vancomycin No Mele 1 gm, Mem oria 3-14 [place] Route: l 01:00: IVPB, Drug Vin 00 form: INJ, [id number], Start date: 09/01/11 20:00:00, Duration: 30 day, Stop date: 10/01/11 8:00:00 vancomycin 0 No Mele 1 gm, Mem oria 3-14 [place] Route: l 01:00: IVPB, Drug [place] 00 form: INJ, [id number], Start date: 09/01/11 20:00:00, Duration: 30 day, Stop date: 10/01/11 8:00:00 vancomycin 0 No Mele 1 gm, Mem oria 3-14 [place] Route: l 01:00: IVPB, Drug [place] 00 form: INJ, [id number], Start date: 09/01/11 20:00:00, Duration: 30 day, Stop date: 10/01/11 8:00:00 vancomycin 2012-0 No Mele 1 gm, Mem oria 3-14 [place] Route: l 01:00: IVPB, Drug [place] 00 form: INJ, [id number], Start date: 09/01/11 20:00:00, Duration: 30 day, Stop date: 10/01/11 8:00:00 Lactated 2011-0 No Charbel A 1,000 mL, Memoria Ringers IV 3-14 Wong Rate: 125 l 1,000 mL 00:55: ml/hr, [place] 00 Infuse over: 8 hr, Route: IV, [...] Rate: 125 l 1,000 mL 00:55: ml/hr, [place] 00 Infuse over: 8 hr, Route: IV, [...] Rate: 125 l 1,000 mL 00:55: ml/hr, [place] 00 Infuse over: 8 hr, Route: IV, Dosing Weight 68.2 kg, Total Volume: 1,000, Start date: 09/01/11 19:55:00, Duration: 30 day, Stop date: 10/01/11 19:54:00 vancomycin 2011-0 No Missael 1 gm, Memor ia 3-14 Movva Route: l 00:00: IVPB, Drug Vin 00 form: INJ, [id number], Start date: 09/01/11 19:00:00, Duration: 30 day, Stop date: 10/01/11 7:00:00 vancomycin 2011-0 No Missael 1 gm, Memor ia 3-14 Movva Route: l 00:00: IVPB, Drug Vin 00 form: INJ, [id number], Start date: 09/01/11 19:00:00, Duration: 30 day, Stop date: 10/01/11 7:00:00 vancomycin 2011-0 No Missael 1 gm, Memor ia 3-14 Movva Route: l 00:00: IVPB, Drug [place] 00 form: INJ, [id number], Start date: 09/01/11 19:00:00, Duration: 30 day, Stop date: 10/01/11 7:00:00 vancomycin 2011-0 No Missael 1 gm, Memor ia 3-14 Movva Route: l 00:00: IVPB, Drug Vin 00 form: INJ, [id number], Start date: 09/01/11 19:00:00, Duration: 30 day, Stop date: 10/01/11 7:00:00 vancomycin 2011-0 No Missael 1 gm, Memor ia 3-14 Movva Route: l 00:00: IVPB, Drug Vin 00 form: INJ, [id number], Start date: 09/01/11 19:00:00, Duration: 30 day, Stop date: 10/01/11 7:00:00 insulin 2011-0 No Missael 6 unit, Memori a aspart 3-13 Movva 0.06 mL, l 23:23: Route: [place] 00 SUB-Q, Drug form: SOLN, TID-Before Meals, [...] 3-13 Movva 0.06 mL, l 23:23: Route: [place] 00 SUB-Q, Drug form: SOLN, TID-Before Meals, PRN Blood Glucose Results, Start date: 09/01/11 18:23:00, Duration: 30 day, Stop date: 10/01/11 18:22:00 glucagon 2012-0 No Missael 1 mg, Memoria 3-13 Movva Route: IM, l 23:23: Drug form: [place] 00 PDR/INJ, PRN, PRN Blood Glucose Results, [...] 3-13 Movva 0.06 mL, l 23:23: Route: [place] 00 SUB-Q, Drug form: SOLN, TID-Before Meals, PRN Blood Glucose Results, Start date: 09/01/11 18:23:00, Duration: 30 day, Stop date: 10/01/11 18:22:00 glucagon 2012-0 No Missael 1 mg, Memoria 3-13 Movva Route: IM, l 23:23: Drug form: [place] 00 PDR/INJ, PRN, PRN Blood Glucose Results, [...] Beni mL, Route: l 21:14: IVP, Drug [place] 00 form: INJ, Q4H, PRN Severe Pain, Start date: 09/01/11 16:14:00, Stop date: 10/01/11 16:13:00 morphine 2012-0 No Daja Shannan 2 mg, 1 M emoria Sulfate 3-13 Beni mL, Route: l 21:14: IVP, Drug Vin 00 form: INJ, Q4H, PRN Severe Pain, Start date: 09/01/11 16:14:00, Stop date: 10/01/11 16:13:00 Lactated 2012-0 No Cesar 1,000 mL, Me moria Ringers IV 3-13 Manuel [place] Rate: 100 l 1,000 mL 19:03: ml/hr, Vin 00 Infuse over: 10 hr, Route: IV, Dosing Weight 68.182 kg, Total Volume: 1,000, Start date: 09/01/11 14:03:00, Duration: 30 day, Stop date: 10/01/11 14:02:00 Lactated 2012-0 No Cesar 1,000 mL, Me moria Ringers IV 3-13 Manuel [place] Rate: 100 l 1,000 mL 19:03: ml/hr, [place] 00 Infuse over: 10 hr, Route: IV, Dosing Weight 68.182 kg, Total Volume: 1,000, Start date: 09/01/11 14:03:00, Duration: 30 day, Stop date: 10/01/11 14:02:00 Lactated 2012-0 No Cesar 1,000 mL, Me moria Ringers IV 3-13 Manuel [place] Rate: 100 l 1,000 mL 19:03: ml/hr, [place] 00 Infuse over: 10 hr, Route: IV, Dosing Weight 68.182 kg, Total Volume: 1,000, Start date: 09/01/11 14:03:00, Duration: 30 day, Stop date: 10/01/11 14:02:00 Lactated 2012-0 No Cesar 1,000 mL, Me moria Ringers IV 3-13 Manuel [place] Rate: 100 l 1,000 mL 19:03: ml/hr, Vin 00 Infuse over: 10 hr, Route: IV, Dosing Weight 68.182 kg, Total Volume: 1,000, Start date: 09/01/11 14:03:00, Duration: 30 day, Stop date: 10/01/11 14:02:00 Lactated 2012-0 No Cesar 1,000 mL, Me moria Ringers IV 3-13 Manuel [place] Rate: 100 l 1,000 mL 19:03: ml/hr, [place] Infuse over: 10 hr, Route: IV, Dosing [...] Madden 0.08 mL, l 15:28: Gurinder Route: [place] SUB-Q, Drug form: SOLN, ONCE, Priority: STAT, Start date: 09/01/11 10:28:00, Stop date: 09/01/11 10:28:00 Insulin 2011-0 No [place] 8 unit, Memoria regular 3-13 Madden 0.08 mL, l 15:28: Gurinder Route: [place] SUB-Q, Drug form: SOLN, ONCE, Priority: STAT, Start date: 09/01/11 10:28:00, Stop date: 09/01/11 10:28:00 Insulin 2011-0 No [place] 8 unit, Memoria regular 3-13 Madden 0.08 mL, l 15:28: Gurinder Route: [place] SUB-Q, Drug form: SOLN, ONCE, Priority: STAT, Start date: 09/01/11 10:28:00, Stop date: 09/01/11 10:28:00 Insulin 2011-0 No [place] 8 unit, Memoria regular 3-13 Madden 0.08 mL, l 15:28: Gurinder Route: [place] SUB-Q, Drug form: SOLN, ONCE, Priority: STAT, [...] Madden Rate: l 0.9% 14:53: Gurinder 1,000 [place] (Bolus) IV 00 ml/hr, 1,000 mL Infuse [...] Madden Rate: l 0.9% 14:53: Gurinder 1,000 [place] (Bolus) IV 00 ml/hr, 1,000 mL Infuse [...] No Ju 600 mg, 4 Memoria 3-13 [place] mL, Route: l 13:20: Sandeep IVPB, Drug Herm naeem 00 form: INJ, ONCE, Priority: STAT, Start date: 09/01/11 8:20:00, Stop date: 09/01/11 8:20:00 Sodium 2012-0 No Bee L 1,000 mL, M emoria Chloride 3-13 [place] Rate: l 0.9% 10:41: 1,000 [place] (Bolus) IV 00 ml/hr, 1000 mL Infuse over: 1 hr, Route: IV, Dosing Weight 68.182 kg, Total Volume: 1,000, Bolus Dose, Priority: STAT, Start date: 09/01/11 5:41:00, Duration: 1 doses or times, Stop date: 09/01/11 6:40:00 Sodium 2012-0 No Bee L 1,000 mL, M emoria Chloride 3-13 [place] Rate: l 0.9% 10:41: 1,000 [place] (Bolus) IV 00 ml/hr, 1000 mL Infuse [...] 08-31 [place] Rate: l 0.9% 10:41: 1,000 Vin (Bolus) IV 00 ml/hr, 1000 mL Infuse over: 1 hr, Route: IV, Dosing Weight 68.182 kg, Total Volume: 1,000, [place] Dose, Priority: STAT, Start date: 09/01/11 5:41:00, Duration: 1 doses or times, Stop date: 09/01/11 6:40:00 Sodium 2011-0 No Bee L 1,000 mL, M emoria Chloride 08-31 [place] Rate: l 0.9% 10:41: 1,000 [place] (Bolus) IV 00 ml/hr, 1000 mL Infuse over: 1 hr, Route: IV, Dosing Weight 68.182 kg, Total Volume: 1,000, [place] Dose, Priority: STAT, Start date: 09/01/11 5:41:00, Duration: 1 doses or times, Stop date: 09/01/11 6:40:00 ondansetron 2011- No Bee L 4 mg, Memoria 08-31 [place] Route: l 09:06: IVP, Drug Vin 00 form: INJ, ONCE, Priority: STAT, Start date: 09/01/11 4:06:00, Stop date: 09/01/11 4:06:00 morphine 2011-0 No Bee L 4 mg, Mem oria Sulfate 08-31 [place] Route: l 09:06: IVP, ONCE, [place] 00 Priority: STAT, Start date: 09/01/11 4:06:00, [...] No Bee L 4 mg, Memoria 3-13 [place] Route: l 09:06: IVP, Drug Vin 00 form: INJ, ONCE, Priority: STAT, Start date: 09/01/11 4:06:00, Stop date: 09/01/11 4:06:00 morphine 2011-0 No Bee L 4 mg, Mem oria Sulfate 3-13 [place] Route: l 09:06: IVP, ONCE, Vin 00 Priority: STAT, Start date: 09/01/11 4:06:00, Stop date: 09/01/11 4:06:00 ondansetron 2012-0 No Bee L 4 mg, Memoria 3-13 [place] Route: l 09:06: IVP, Drug Vin 00 form: INJ, ONCE, Priority: STAT, Start date: 09/01/11 4:06:00, Stop date: 09/01/11 4:06:00 morphine 2011-0 No Bee L 4 mg, Mem oria Sulfate 3-13 [place] Route: l 09:06: IVP, ONCE, Vin 00 [...] emoria Chloride 3 [place] Rate: l 0.9% 08:42: 1,000 [place] (Bolus) IV 00 ml/hr, 1000 mL Infuse [...] 3-13 [place] 0.08 mL, l 08:30: Route: [place] 00 IVP, Drug form: SOLN, ONCE, Priority: STAT, Start date: 09/01/11 3:30:00, Stop date: 09/01/11 3:30:00 Insulin 2011-0 No Bee L 8 unit, Me moria regular 3-13 [place] 0.08 mL, l 08:30: Route: [place] 00 IVP, Drug form: SOLN, ONCE, Priority: STAT, Start date: 09/01/11 3:30:00, Stop date: 09/01/11 3:30:00 Insulin 2011-0 No Bee L 8 unit, Me moria regular 3-13 [place] 0.08 mL, l 08:30: Route: [place] 00 IVP, Drug form: SOLN, ONCE, Priority: STAT, Start date: 09/01/11 3:30:00, Stop date: 09/01/11 3:30:00 Insulin 2011-0 No Bee L 8 unit, Me moria regular 3-13 [place] 0.08 mL, l 08:30: Route: Vin 00 IVP, Drug form: SOLN, ONCE, Priority: STAT, Start date: 09/01/11 3:30:00, Stop date: 09/01/11 3:30:00 Sodium 2011-0 No Bee L 1,000 mL, M emoria Chloride 3-13 [place] Rate: l 0.9% 07:29: 1,000 Vin (Bolus) [...] L 1,000 mL, M emoria Chloride 3 [place] Rate: l 0.9% 07:29: 1,000 [place] (Bolus) IV 00 ml/hr, 1,000 mL Infuse over: 1 hr, Route: IV, Dosing Weight 68.182 kg, Total Volume: 1,000, [place] Dose, Priority: STAT, Start date: 09/01/11 2:29:00, Duration: 1 doses or times, Stop date: 09/01/11 3:28:00 Sodium 2011-0 No Bee L 1,000 mL, M emoria Chloride 3 [place] Rate: l 0.9% 07:29: 1,000 [place] (Bolus) IV 00 ml/hr, 1,000 mL Infuse over: 1 hr, Route: IV, Dosing Weight 68.182 kg, Total Volume: 1,000, [place] Dose, Priority: STAT, Start date: 09/01/11 2:29:00, Duration: 1 doses or times, Stop date: 09/01/11 3:28:00 Sodium 2012-0 No Bee L 1,000 mL, M emoria Chloride 3- [place] Rate: l 0.9% 07:29: 1,000 [place] (Bolus) IV 00 ml/hr, 1,000 mL Infuse [...] 3-04 Akmal tab, l 15:00: Route: PO, [place] 00 Drug form: ERTAB, BID, Start date: 08/23/11 9:00:00, Duration: 2 doses or times, Stop date: 08/23/11 17:00:00 potassium 2012-0 No Brooks Noam 40 mEq, 2 Memoria chloride 3-04 [place] tab, l 15:00: Route: PO, [place] 00 Drug form: ERTAB, BID, Start date: 08/23/11 9:00:00, Duration: 2 doses or times, Stop date: 08/23/11 17:00:00 potassium 2012-0 No Brooks Noam 40 mEq, 2 Memoria chloride 3-04 [place] tab, l 15:00: Route: PO, [place] 00 Drug form: ERTAB, BID, Start date: 08/23/11 9:00:00, Duration: 2 doses or times, Stop date: 08/23/11 17:00:00 potassium 2012-0 No Brooks Noam 40 mEq, 2 Memoria chloride 3-04 [place] tab, l 15:00: Route: PO, [place] 00 Drug form: ERTAB, BID, Start date: [...] Akmal SUB-Q, l units/mL 14:42: BID, 3 [place] subcutaneou 04 vial, 3, s injection 3, Substituti on Allowed, SUSP Novolin N Yes Brooks Noam 18 Units, Memoria 100 3-04 [place] SUB-Q, l units/mL 14:42: BID, 3 Vin subcutaneou 04 vial, 3, s injection 3, Substituti on Allowed, SUSP Novolin N Yes Brooks Noam 18 Units, Memoria 100 3-04 [place] SUB-Q, l units/mL 14:42: BID, 3 [place] subcutaneou 04 vial, 3, s injection 3, Substituti on Allowed, SUSP Novolin N Yes Brooks Noam 18 Units, Memoria 100 3-04 [place] SUB-Q, l units/mL 14:42: BID, 3 [place] subcutaneou 04 vial, 3, s injection 3, Substituti on Allowed, SUSP Novolin N Yes Brooks Noam 18 Units, Memoria 100 3-04 [place] SUB-Q, l units/mL 14:42: BID, 3 [place] subcutaneou 04 vial, 3, s injection 3, [...] breakfast lunch and dinner insulin Yes Brooks Onam 5 Units, Memoria regular 3-04 [place] SUB-Q, [...] 3-04 [place] 100 mL, l 14:00: Route: [place] 00 IVPB, Drug form: INJ, Q2H, Start [...] 3-04 [place]km[place] 100 mL, l 14:00: Route: [place] 00 IVPB, Drug form: INJ, Q2H, Start date: 08/23/11 8:00:00, Duration: 2 doses or times, Stop date: 08/23/11 10:00:00 potassium 2011-0 No Brooks Noam 20 mEq, Memoria chloride 3-04 [place] 100 mL, l 14:00: Route: [place] 00 IVPB, Drug form: INJ, Q2H, Start [...] chloride 3-04 [place] Route: l 13:28: IVPB, [place] 00 ONCE, Priority: STAT, Start date: 08/23/11 [...] chloride 3-04 [place] Route: l 13:28: IVPB, [place] 00 ONCE, Priority: STAT, Start date: 08/23/11 7:28:00, Stop date: 08/23/11 7:28:00 calcium 2011-0 No Brooks Noam 1 gm, Mem oria chloride 3-04 [place] Route: l 13:28: IVPB, [place] 00 ONCE, Priority: STAT, Start date: 08/23/11 7:28:00, Stop date: 08/23/11 7:28:00 potassium 2011-0 No Brooks Noam 40 mEq, Memoria chloride 3-04 [place] Route: IV, l 12:29: ONCE, Vin 00 Start date: 08/23/11 6:29:00, Stop date: 08/23/11 6:29:00 potassium 2011-0 No Brooks Noam 40 mEq, Memoria chloride 3-04 [place] Route: IV, l 12:29: ONCE, [place] 00 Start date: 08/23/11 6:29:00, Stop date: 08/23/11 6:29:00 potassium 2011-0 No Brooks Noam 40 mEq, Memoria chloride 3-04 [place] Route: IV, l 12:29: ONCE, [place] 00 Start date: 08/23/11 6:29:00, Stop date: [...] Akmal mL, Route: l 12:26: IVPB, Drug [place] 00 form: INJ, ONCE, Total dose = 2 gm, Start date: 08/23/11 6:26:00, Duration: 1 doses or times, Stop date: 08/23/11 6:26:00 magnesium 2011-0 No Brooks Noam 2 gm, 50 Memoria sulfate 3-04 [place] mL, Route: l 12:26: IVPB, Drug [place] 00 form: INJ, ONCE, Total dose = 2 gm, Start date: 08/23/11 6:26:00, Duration: 1 doses or times, Stop date: 08/23/11 6:26:00 magnesium 2011-0 No Brooks Noam 2 gm, 50 Memoria sulfate 3-04 [place] mL, Route: l 12:26: IVPB, Drug [place] 00 form: INJ, ONCE, Total dose = 2 gm, Start date: 08/23/11 6:26:00, Duration: 1 doses or times, Stop date: 08/23/11 6:26:00 magnesium 2011-0 No Brooks Noam 2 gm, 50 Memoria sulfate 3-04 [place] mL, Route: l 12:26: IVPB, Drug [place] 00 form: INJ, ONCE, Total dose = 2 gm, Start date: 08/23/11 6:26:00, Duration: 1 doses or times, Stop date: 08/23/11 6:26:00 magnesium 2012-0 No Brooks Noam 2 gm, 50 Memoria sulfate 3-04 [place] mL, Route: l 12:26: IVPB, Drug Vin 00 form: INJ, ONCE, Total dose = 2 gm, Start date: 08/23/11 6:26:00, Duration: 1 doses or times, Stop date: 08/23/11 6:26:00 magnesium 2012-0 No [place] 2 gm, 50 Me moria [...] Rodriguez 10 mL, l 16:25: Ahmed Route: [place] IVPB, ONCE, Start date: 08/22/11 10:25:00, Stop date: 08/22/11 10:25:00 calcium 2012-0 No [place] 1,000 mg, Mem oria gluconate 3-03 Rodriguez 10 mL, l 16:25: Ahmed Route: [place] IVPB, ONCE, Start date: 08/22/11 10:25:00, Stop [...] Akmal mL, Route: l 13:26: IVPB, Drug [place] 00 form: INJ, ONCE, Total dose = 2 gm, Start date: 08/22/11 7:26:00, Duration: 1 doses or times, Stop date: 08/22/11 7:26:00 magnesium 2012-0 No Brooks Noam 2 gm, 50 Memoria sulfate 3-03 [place] mL, Route: l 13:26: IVPB, Drug [place] 00 form: INJ, ONCE, Total dose = 2 gm, Start date: 08/22/11 7:26:00, Duration: 1 doses or times, Stop date: 08/22/11 7:26:00 magnesium 2012-0 No Brooks Noam 2 gm, 50 Memoria sulfate 3-03 [place] mL, Route: l 13:26: IVPB, Drug [place] 00 form: INJ, ONCE, Total dose = 2 gm, Start date: 08/22/11 7:26:00, Duration: 1 doses or times, Stop date: 08/22/11 7:26:00 magnesium 2012-0 No Brooks Noam 2 gm, 50 Memoria sulfate 3-03 [place]km[place] mL, Route: l 13:26: IVPB, Drug [place] 00 form: INJ, ONCE, Total dose = 2 gm, Start date: 08/22/11 7:26:00, Duration: 1 doses or times, Stop date: 08/22/11 7:26:00 magnesium 2012-0 No Didier Santacruz 2 gm, 50 Memoria sulfate 3-03 [place] mL, Route: l 13:26: IVPB, Drug [place] form: INJ, ONCE, Total dose = 2 gm, Start date: 08/22/11 7:26:00, Duration: 1 doses or times, Stop date: 08/22/11 7:26:00 Geodon 0 No Yury 120 mg, 3 Mem oria [...] 08/21/11 9:12:00, Stop date: 08/21/11 9:12:00 potassium 2011-0 No Yury 20 mEq, Me [...] 3-02 Akmal tab, l 15:00: Route: PO, [place] 00 Drug form: TAB, Daily, Start date: 08/21/11 9:00:00, Stop date: 09/19/11 9:00:00 lisinopril 2012-0 No Brooks Noam 40 mg, 2 Memoria 3-02 [place] tab, l 15:00: Route: PO, Vin Drug form: TAB, Daily, Start date: 08/21/11 9:00:00, Stop date: 09/19/11 9:00:00 lisinopril 2012-0 No Brooks Noam 40 mg, 2 Memoria 3-02 [place] tab, l 15:00: Route: PO, [place] 00 Drug form: TAB, Daily, Start date: 08/21/11 9:00:00, Stop date: 09/19/11 9:00:00 lisinopril 2012-0 No Brooks Noam 40 mg, 2 Memoria 3-02 [place] tab, l 15:00: Route: PO, Vin 00 Drug form: TAB, Daily, Start date: 08/21/11 9:00:00, Stop date: 09/19/11 9:00:00 lisinopril 2012-0 No Brooks Noam 40 mg, 2 Memoria 3-02 [place] tab, l 15:00: Route: PO, [place] Drug form: TAB, Daily, Start date: 08/21/11 [...] 2011-0 No Yury 10 unit, Mem oria isophane-PROGRESSIVE CARE UNIT REGISTERED NURSE 08-19 [place] Route: l H 16:00: [place] SUB-Q, Nidia nn 00 ONCE, Start date: 08/20/11 10:00:00, Stop date: 08/20/11 10:00:00 insulin 2011-0 No Yury 10 unit, Mem oria isophane-PROGRESSIVE CARE UNIT REGISTERED NURSE 08-19 [place] Route: l H 16:00: [place] SUB-Q, Nidia nn 00 ONCE, Start date: 08/20/11 10:00:00, Stop date: 08/20/11 10:00:00 insulin 2011-0 No Yury 10 unit, Mem oria isophane-PROGRESSIVE CARE UNIT REGISTERED NURSE 08-19 [place] Route: l H 16:00: [place] SUB-Q, Nidia nn 00 ONCE, Start date: 08/20/11 10:00:00, Stop date: 08/20/11 10:00:00 insulin 2011-0 No Yury 10 unit, Mem oria isophane-PROGRESSIVE CARE UNIT REGISTERED NURSE 3 [place] Route: l H 16:00: [place] SUB-Q, Nidia nn 00 ONCE, Start date: 08/20/11 10:00:00, Stop date: 08/20/11 10:00:00 insulin 2011-0 No Yury 10 unit, Mem oria isophane-PROGRESSIVE CARE UNIT REGISTERED NURSE 3- [place] Route: l H 16:00: [place] SUB-Q, Nidia nn 00 ONCE, Start date: 08/20/11 10:00:00, Stop date: 08/20/11 10:00:00 trazodone 2011-0 Yes 200 mg, 2 Mem oria 100 mg oral 3-01 tab, PO, l tablet 15:37: Bedtime, [place] 27 90 tab, Substituti on Allowed, TAB [...] 3-01 tab, PO, l tablet 15:37: Bedtime, [place] 27 90 tab, Substituti on Allowed, TAB trazodone 2012-0 Yes 200 mg, 2 Mem oria 100 mg oral 3-01 tab, PO, l tablet 15:37: Bedtime, Vin 27 90 tab, Substituti on Allowed, TAB benztropine 2012-0 Yes 1 mg, 1 Mem oria 1 mg oral 3-01 tab, PO, l tablet 15:35: BID, 60 [place] 25 tab, Substituti on Allowed, TAB benztropine 2012-0 Yes 1 mg, 1 Mem oria 1 mg oral 3-01 tab, PO, l tablet 15:35: BID, 60 [place] 25 tab, Substituti on Allowed, TAB benztropine 2012-0 Yes 1 mg, 1 Mem oria 1 mg oral 3-01 tab, PO, l tablet 15:35: BID, 60 [place] 25 tab, Substituti on Allowed, TAB benztropine [...] cap, PO, l capsule 15:35: Bedtime, Jake gonzalez 12 60 cap, Substituti on Allowed, CAP [...] 2011-0 No Yury 10 unit, Mem oria isophane-PROGRESSIVE CARE UNIT REGISTERED NURSE 3- [place] Route: l H 15:00: Rivero [...] 2011-0 No Yury 10 unit, Mem oria isophane-PROGRESSIVE CARE UNIT REGISTERED NURSE 3-01 [place] Route: l H 15:00: Rivero [...] 2011-0 No Yury 10 unit, Mem oria isophane-PROGRESSIVE CARE UNIT REGISTERED NURSE 3-01 [place] Route: l H 15:00: Rivero [...] 2011-0 No Yury 10 unit, Mem oria isophane-PROGRESSIVE CARE UNIT REGISTERED NURSE 3-01 [place] Route: l H 15:00: Rivero [...] 1 Memoria 3-01 [place] cap, l 15:00: Irvero Route: PO, H erm Drug form: ERCAP, Daily, Start date: 08/20/11 9:00:00, Duration: 30 day, Stop date: 09/18/11 9:00:00 insulin 2011-0 No Yury 10 unit, Mem oria isophane-PROGRESSIVE CARE UNIT REGISTERED NURSE 3-01 [place] Route: l H 15:00: Rivero [...] insulin 2011-0 No 10 unit, Memori a isophane-PROGRESSIVE CARE UNIT REGISTERED NURSE 3- SUB-Q, l H 09:26: BID, Vin 18 Substituti on Allowed insulin No 10 unit, Memori a isophane-PROGRESSIVE CARE UNIT REGISTERED NURSE - SUB-Q, l H 09:26: BID, [place] 18 Substituti on Allowed insulin No 10 unit, Memori a isophane-PROGRESSIVE CARE UNIT REGISTERED NURSE - SUB-Q, l H 09:26: BID, [place] 18 Substituti on Allowed insulin 0 No 10 unit, Memori a isophane-PROGRESSIVE CARE UNIT REGISTERED NURSE - SUB-Q, l H 09:26: BID, Vin 18 Substituti on Allowed insulin No 10 unit, Memori a isophane-PROGRESSIVE CARE UNIT REGISTERED NURSE - SUB-Q, l H 09:26: BID, [place] 18 Substituti on Allowed NS 1,000 mL No Brooks Noam 1,000 mL, Memoria 08-19 [place] Rate: 150 l 09:06: ml/hr, [place] 00 Infuse over: 6.7 hr, Route: IV, [...] 3-01 [place] Rate: 150 l 09:06: ml/hr, [place] 00 Infuse over: 6.7 hr, Route: IV, [...] 3:05:00 NS 1,000 mL 2011-0 No Brooks Noma 1,000 mL, Memoria 3-01 [place] Rate: 150 [...] 2011-0 No Yury 18 unit, Mem oria isophane-PROGRESSIVE CARE UNIT REGISTERED NURSE 3-01 [place] 0.18 mL, l H 08:58: Rivero Route: Nidia nn 00 SUB-Q, Drug form: INJ, Q12H, Start date: 08/20/11 2:58:00, Stop date: 09/18/11 21:00:00 insulin 2011-0 No Yury 18 unit, Mem oria isophane-PROGRESSIVE CARE UNIT REGISTERED NURSE 3-01 [place] 0.18 mL, l H 08:58: Rivero Route: Nidia nn 00 SUB-Q, Drug form: INJ, Q12H, Start date: 08/20/11 2:58:00, Stop date: 09/18/11 21:00:00 insulin 2011-0 No Yury 18 unit, Mem oria isophane-PROGRESSIVE CARE UNIT REGISTERED NURSE 3-01 [place] 0.18 mL, l H 08:58: Rivero Route: Nidia nn 00 SUB-Q, Drug form: INJ, Q12H, Start date: 08/20/11 2:58:00, Stop date: 09/18/11 21:00:00 insulin 2011-0 No Yury 18 unit, Mem oria isophane-PROGRESSIVE CARE UNIT REGISTERED NURSE 3-01 [place] 0.18 mL, l H 08:58: Rivero Route: Nidia nn 00 SUB-Q, Drug form: INJ, Q12H, Start date: 08/20/11 2:58:00, Stop date: 09/18/11 21:00:00 insulin 2011-0 No Yury 18 unit, Mem oria isophane-PROGRESSIVE CARE UNIT REGISTERED NURSE 3-01 [place] 0.18 mL, l H 08:58: [...] insulin 2011-0 No Yury 2 unit, Mendoza janiec aspart 3-01 [place] 0.02 mL, l 08:48: [...] No Hughes-Jason 4 mg, M emoria 08-19 [place] Route: l 07:42: [place] IVP, Drug Herm naeem 00 Pu form: INJ, ONCE, Priority: STAT, Start date: 08/20/11 1:42:00, Stop date: 08/20/11 1:42:00 ondansetron 2011-0 No Hughes-Jason 4 mg, M emoria 08-19 [place] Route: l 07:42: [place] IVP, Drug Herm naeem 00 Pu form: INJ, ONCE, Priority: STAT, Start date: 08/20/11 1:42:00, Stop date: 08/20/11 1:42:00 ondansetron 2011-0 No Hughes-Jason 4 mg, M emoria 08-19 [place] Route: l 07:42: [place] IVP, Drug Herm naeem 00 Pu form: INJ, ONCE, Priority: STAT, Start date: 08/20/11 1:42:00, Stop date: 08/20/11 1:42:00 ondansetron 2011-0 No Hughes-Jason 4 mg, M emoria 08-19 [place] Route: l 07:42: [place] IVP, Drug Herm naeem 00 Pu form: INJ, ONCE, Priority: STAT, Start date: 08/20/11 1:42:00, Stop date: 08/20/11 1:42:00 ondansetron 2011-0 No Hughes-Jason 4 mg, M emoria 08-19 [place] Route: l 07:42: [facility] IVP, Drug Herm naeem 00 Pu form: INJ, ONCE, Priority: STAT, Start date: 08/20/11 1:42:00, Stop date: 08/20/11 1:42:00 GI cocktail No Hughes-Jason 30 ml, Memoria 08-19 [place] Route: PO, l 05:12: [facility] Drug Form: Her braden 00 Pu SUSP, ONCE, STAT, Start date: 08/19/11 23:12:00, Stop date: 08/19/11 23:12:00 GI cocktail No Hughes-Jason 30 ml, Memoria 08-19 [place] Route: PO, l 05:12: [facility] Drug Form: Her braden 00 Pu SUSP, ONCE, STAT, Start date: 08/19/11 23:12:00, Stop date: 08/19/11 23:12:00 GI cocktail No Hughes-Jason 30 ml, Memoria 08-19 [place] Route: PO, l 05:12: [facility] Drug Form: Her braden 00 Pu SUSP, ONCE, STAT, Start date: 08/19/11 23:12:00, Stop date: 08/19/11 23:12:00 GI cocktail No Hughes-Jason 30 ml, Memoria 08-19 [place] Route: PO, l 05:12: [facility] Drug Form: Her braden 00 Pu SUSP, ONCE, STAT, Start date: 08/19/11 23:12:00, Stop date: 08/19/11 23:12:00 GI cocktail No Hughes-Jason 30 ml, Memoria 08-19 [place] Route: PO, l 05:12: [facility] Drug Form: Her braden 00 Pu SUSP, ONCE, STAT, Start date: 08/19/11 23:12:00, Stop date: 08/19/11 23:12:00 ondansetron No Hughes-Jason 4 mg, M emoria 08-19 [place] Route: PO, l 05:10: [facility] Drug form: Her braden 00 Pu TABDIS, ONCE, Priority: STAT, Start date: 08/19/11 23:10:00, Stop date: 08/19/11 23:10:00 Lactated 2011- No Hughes-Jason 1,000 mL, Memoria Ringers 3- [place] Rate: l (Bolus) IV 05:10: [place] 1,000 [place] r[place] 1000 mL 00 Pu ml/hr, Infuse over: 1 hr, Route: IV, Total Volume: 1,000, Bolus Dose, Priority: STAT, Start date: 08/19/11 23:10:00, Duration: 1 doses or times, Stop date: 08/20/11 0:09:00 ondansetron 2012-0 No Hughes-Jason 4 mg, M emoria 3- [place] Route: PO, l 05:10: [facility] Drug form: Her braden 00 Pu TABDIS, ONCE, Priority: STAT, Start date: 08/19/11 23:10:00, Stop date: 08/19/11 23:10:00 Lactated 2011-0 No Hughes-Jason 1,000 mL, Memoria Ringers 3- [place] Rate: l (Bolus) IV 05:10: [place] 1,000 He rmann 1000 mL 00 Pu ml/hr, Infuse over: 1 hr, Route: IV, Total Volume: 1,000, Bolus Dose, Priority: STAT, Start date: 08/19/11 23:10:00, Duration: 1 doses or times, Stop date: 08/20/11 0:09:00 ondansetron 2012-0 No Hughes-Jason 4 mg, M emoria 3 [place] Route: PO, l 05:10: [facility] Drug form: Her braden 00 Pu TABDIS, ONCE, Priority: STAT, Start date: 08/19/11 23:10:00, Stop date: 08/19/11 23:10:00 Lactated 2011-0 No Hughes-Jason 1,000 mL, Memoria Ringers 3- [place] Rate: l (Bolus) IV 05:10: [place] 1,000 He rmann 1000 mL 00 Pu ml/hr, Infuse over: 1 hr, Route: IV, Total Volume: 1,000, Bolus Dose, Priority: STAT, Start date: 08/19/11 23:10:00, Duration: 1 doses or times, Stop date: 08/20/11 0:09:00 ondansetron 2012-0 No Hughes-Jason 4 mg, M emoria 3- [place] Route: PO, l 05:10: [facility] form: Her braden 00 Pu TABDIS, ONCE, Priority: STAT, Start date: 08/19/11 23:10:00, Stop date: 08/19/11 23:10:00 Lactated 2011-0 No Hughes-Jason 1,000 mL, Memoria Ringers 3-01 [place] Rate: l (Bolus) IV 05:10: Dawson 1,000 He rmann 1000 mL 00 Pu ml/hr, Infuse over: 1 hr, Route: IV, Total Volume: 1,000, Bolus Dose, Priority: STAT, Start date: 08/19/11 23:10:00, Duration: 1 doses or times, Stop date: 08/20/11 0:09:00 ondansetron 2011- No Hughes-Jason 4 mg, [facility] 08-19 [place] Route: PO, l 05:10: [facility] Drug form: Her braden 00 Pu TABDIS, ONCE, Priority: STAT, Start date: 08/19/11 23:10:00, Stop date: 08/19/11 23:10:00 Lactated 2011-0 No Huhges-Jason 1,000 mL, Memoria Ringers 3- [place] Rate: l (Bolus) IV 05:10: Dawson 1,000 He rmann 1000 mL 00 Pu ml/hr, Infuse over: 1 hr, Route: IV, Total Volume: 1,000, Bolus Dose, Priority: STAT, Start date: 08/19/11 23:10:00, Duration: 1 doses or times, Stop date: 08/20/11 0:09:00 Insulin 2011-0 No Hughes-Jason 7 unit, Mem oria regular 3-01 [place] 0.07 mL, l 04:15: Dawson Route: [place] 00 Pu SUB-Q, Drug form: SOLN, ONCE, Priority: STAT, Start date: 08/19/11 22:15:00, Stop date: 08/19/11 22:15:00 Insulin 2011-0 No Hughes-Jason 7 unit, Mem oria regular 3-01 [place] 0.07 mL, l 04:15: Dawson Route: [place] 00 Pu SUB-Q, Drug form: SOLN, ONCE, Priority: STAT, Start date: 08/19/11 22:15:00, Stop date: 08/19/11 22:15:00 Insulin 2011-0 No Hughes-Jason 7 unit, Mem oria regular 3-01 [place] 0.07 mL, l 04:15: Dawson Route: Vin Pu SUB-Q, Drug form: SOLN, ONCE, Priority: STAT, Start date: 08/19/11 22:15:00, Stop date: 08/19/11 22:15:00 Insulin 2011-0 No Hughes-Jason 7 unit, Mem oria regular 3-01 [place] 0.07 mL, l 04:15: Dawson Route: [place] Pu SUB-Q, Drug form: SOLN, ONCE, Priority: STAT, Start date: 08/19/11 22:15:00, Stop date: 08/19/11 22:15:00 Insulin 2011-0 No Hughes-Jason 7 unit, Mem oria regular 3- [place] 0.07 mL, l 04:15: Dawson Route: Vin [...] PO, l capsule 23:24: Rivero BID, 180 [place] 43 cap, Substituti on Allowed, CAP Geodon 60 No Yury 60 mg, 1 M emoria mg oral 2-29 [place] cap, PO, l capsule 23:24: Rivero BID, 180 [place] 43 cap, Substituti on Allowed, CAP Geodon 60 No Yury 60 mg, 1 M emoria mg oral 2-29 [place] cap, PO, l capsule 23:24: Rivero BID, 180 Vin 43 cap, Substituti on Allowed, CAP Geodon 60 No Yury 60 mg, 1 M emoria mg oral 2-29 [place] cap, PO, l capsule 23:24: Rivero BID, 180 [place] 43 cap, Substituti on Allowed, CAP trazodone 2012-0 No 300 mg, 1 Mem oria 300 mg oral 2-29 tab, PO, l tablet 23:23: Bedtime, Vin 58 15 tab, Substituti on Allowed, TAB trazodone 2012-0 No 300 mg, 1 Mem oria 300 mg oral 2-29 tab, PO, l tablet 23:23: Bedtime, [place] 58 15 tab, Substituti on Allowed, TAB trazodone 2012-0 No 300 mg, 1 Mem oria 300 mg oral 2-29 tab, PO, l tablet 23:23: Bedtime, [place] 58 15 tab, Substituti on Allowed, TAB trazodone 2012-0 No 300 mg, 1 Mem oria 300 mg oral 2-29 tab, PO, l tablet 23:23: Bedtime, [place] 58 15 tab, Substituti on Allowed, TAB trazodone 2012-0 No 300 mg, 1 Mem oria 300 mg oral 2-29 tab, PO, l tablet 23:23: Bedtime, Vin 58 15 tab, Substituti on Allowed, TAB Effexor XR 2012-0 Yes Yury 75 mg, 1 Memoria 75 mg oral 2-29 [place] cap, PO, l capsule, 23:22: Rivero Daily, 30 [place] extended 24 cap, release Substituti on Allowed Effexor XR 2012-0 Yes Yury 75 mg, 1 Memoria 75 mg oral 2-29 [place] cap, PO, l capsule, 23:22: Rivero Daily, 30 [place] extended 24 cap, release Substituti on Allowed [...] 16:16:00, Replace Every: 24 hr GI cocktail 2012-0 No William 40 mL, Me moria Wong [...] 0 No William 40 mg, Memor ia 2-29 [place] Route: l 22:04: Pooja IVP, Drug Jake n 00 form: INJ, ONCE, Start date: 08/19/11 16:04:00, Stop date: 08/19/11 16:04:00 GI cocktail 2011-0 No William 40 mL, Me moria 2- Wong Route: PO, l 22:04: Pooja Drug Form: Nidia nn 00 SUSP, ONCE, STAT, Start date: 08/19/11 16:04:00, Stop date: 08/19/11 16:04:00 Protonix 2011-0 No William 40 mg, Memor ia 2-29 Wong Route: l 22:04: Pooja IVP, Drug [...] Wong Route: IV, l 21:57: Pooja ONCE, [place] 00 Start date: 08/19/11 15:57:00, Stop date: 08/19/11 15:57:00 ondansetron 2011-0 No William 8 mg, Mem oria 2-29 Wong Route: l 21:57: Pooja IVP, Drug Jake n 00 form: INJ, ONCE, Priority: STAT, Start date: 08/19/11 15:57:00, Stop date: 08/19/11 15:57:00 morphine 2012-0 No William 4 mg, Memori a Sulfate 2-29 Wong Route: l 21:57: Pooja IVP, ONCE, Nidia nn 00 Priority: STAT, Start date: 08/19/11 15:57:00, Stop date: 08/19/11 15:57:00 Reglan 2011-0 No William 10 mg, Memoria 2-29 Wong Route: IV, l 21:57: Pooja ONCE, [place] 00 Start date: 08/19/11 15:57:00, Stop date: 08/19/11 15:57:00 ondansetron 2012-0 No William 8 mg, Mem oria 2-29 Wong Route: l 21:57: Pooja IVP, Drug Jake n 00 form: INJ, ONCE, Priority: STAT, Start date: 08/19/11 15:57:00, Stop date: 08/19/11 15:57:00 morphine 2012-0 No William 4 mg, Memori a Sulfate 2-29 Wong Route: l 21:57: Pooja IVP, ONCE, Nidia nn 00 Priority: STAT, Start date: 08/19/11 15:57:00, Stop date: 08/19/11 15:57:00 Reglan 2011-0 No William 10 mg, Memoria 2-29 Wong Route: IV, l 21:57: Pooja ONCE, [place] 00 Start date: 08/19/11 15:57:00, Stop date: [...] Meningococcal 2019-07-25 Completed [facility] Polysaccharide 00:00:00 [place] [facility] (groups A, C, Y and Branc h W-135) conjugate vaccine (MCV4P) TDAP (ADACEL) VACCINE 2019-07-25 Completed Uni versity of 00:00:00 [facility] Meningococcal B, OMV 2019-07-25 Completed Univ ersity of 00:00:00 [facility] Meningococcal 2019-07-25 Completed [facility] Polysaccharide 00:00:00 [place] [facility] (groups A, C, Y and [...] hepatitis B vaccine 2018-04-07 Completed Memor ial [place] 00:00:00 hepatitis B vaccine 2018-04-07 Completed Memor ial [place] 00:00:00 hepatitis B vaccine 2018-04-07 Completed [facility] ial [place] 00:00:00 hepatitis B vaccine 2018-04-07 Completed Memor ial Vin 00:00:00 influenza virus 2018-03-29 Completed [facility] Vin vaccine, inactivated 00:00:00 influenza virus 2018-03-29 Completed [facility] [place] vaccine, inactivated 00:00:00 influenza virus 2018-03-29 Completed [facility] [place] vaccine, inactivated 00:00:00 influenza virus 2018-03-29 Completed [facility] [place] vaccine, inactivated 00:00:00 influenza virus 2018-03-29 Completed [facility] [place] vaccine, inactivated 00:00:00 hepatitis B vaccine 2017-11-26 Completed Mem[facility] ial [place] 00:00:00 hepatitis B vaccine 2017-11-26 Completed Memor ial Vin 00:00:00 hepatitis B vaccine 2017-11-26 Completed [facility] [place] 00:00:00 hepatitis B vaccine 2017-11-26 Completed Memor ial Vin 00:00:00 hepatitis B vaccine 2017-11-26 Completed [facility] [place] 00:00:00 influenza virus 2017-10-25 Completed [facility] Vin vaccine, inactivated 00:00:00 pneumococcal 2017-10-25 Completed [facility] Her braden 23-valent vaccine 00:00:00 influenza virus 2017-10-25 Completed [facility] [place] vaccine, inactivated 00:00:00 pneumococcal 2017-10-25 Completed [facility] Her braden 23-valent vaccine 00:00:00 influenza virus 2017-10-25 Completed [facility] Vin vaccine, inactivated 00:00:00 pneumococcal 2017-10-25 Completed [facility] Her braden 23-valent vaccine 00:00:00 influenza virus 2017-10-25 Completed [facility] [place] vaccine, inactivated 00:00:00 pneumococcal 2017-10-25 Completed [facility] braden 23-valent vaccine 00:00:00 influenza virus 2017-10-25 Completed [facility] Vin vaccine, inactivated 00:00:00 pneumococcal 2017-10-25 Completed [facility] Her braden 23-valent vaccine 00:00:00 Influenza Virus [...] h BMI 2021-01-03 12:57:00 28.17 [facility]2 [facility] 2020-06-27 16:33:00 171 mm[Hg] [facility]iver [facility] pressure [facility] Diastolic blood 2020-06-27 16:33:00 98 mm[Hg] Unive rsity of pressure [facility] Heart rate 2020-06-27 16:33:00 71 /min [facility] Respiratory rate 2020-06-27 16:29:00 19 /min [facility] Body height 2020-06-27 16:29:00 154.9 cm [facility] Body weight 2020-06-27 16:29:00 77.293 kg [facility] BMI 2020-06-27 16:29:00 32.20 kg/m2 [facility] Oxygen saturation in 2020-06-27 16:29:00 99 /min [facility] Arterial blood by [place] [facility] tawnya Pulse oximetry Branch Systolic blood 2020-06-27 16:33:00 171 mm[Hg] [facility] pressure [facility] Diastolic blood 2020-06-27 16:33:00 98 mm[Hg] Unive rsity of pressure [facility] Heart rate 2020-06-27 16:33:00 71 /min [facility] Respiratory rate 2020-06-27 16:29:00 19 /min [facility] Body height 2020-06-27 16:29:00 154.9 cm [facility] Body weight 2020-06-27 16:29:00 77.293 kg [facility] BMI 2020-06-27 16:29:00 32.20 kg/m2 [facility] Oxygen saturation in 2020-06-27 16:29:00 99 /min [facility] Arterial blood by [place] [facility] tawnya Pulse oximetry Branch Height/Length 2021-07-08 11:50:13 154.9 cm Measured Weight Dosing 2021-07-08 11:50:13 85.00 kg Height/Length 2021-07-08 11:47:31 154.9 cm Measured Weight Dosing 2021-07-08 11:47:31 85.00 kg Height/Length 2021-07-08 11:47:20 154.9 cm Measured Weight Dosing 2021-07-08 11:47:20 85.00 kg Systolic blood 2021-07-08 19:43:00 189 mm[Hg] [facility] pressure Diastolic blood 2021-07-08 19:43:00 104 mm[Hg] [facility] pressure Heart rate 2021-07-08 18:56:00 74 /min [facility] Body temperature 2021-07-08 18:56:00 36.39 Cathleen [facility] Body height 2021-07-08 18:56:00 157.5 cm [facility] Body weight 2021-07-08 18:56:00 72.938 kg [facility] BMI 2021-07-08 18:56:00 29.41 kg/m2 [facility] Oxygen saturation in 2021-07-08 18:56:00 100 /min [facility] Arterial blood by Pulse oximetry Respiratory rate 2021-06-18 16:36:00 11 /min [facility] Systolic (mm Hg) 2021-01-29 20:03:00 Mendoza rial Vin Diastolic (mm Hg) 2021-01-29 20:03:00 Mem orial [place] Systolic (mm Hg) 2021-01-29 19:40:00 Mendoza rial Vin Diastolic (mm Hg) 2021-01-29 19:40:00 Mem orial [place] Systolic (mm Hg) 2021-01-29 18:05:00 Mendoza rial Vin Diastolic (mm Hg) 2021-01-29 18:05:00 Mem orial Vin Respitory Rate 2021-01-29 16:55:00 Memori al Vin Temperature Oral (F) 2021-01-29 16:45:00 97.3 F [facility] [place] Respitory Rate 2021-01-29 16:45:00 Memori al Vin Respitory Rate 2021-01-29 16:30:00 Memori al [place] Temperature Oral (F) 2021-01-29 13:10:00 97.6 F [facility] [place] Systolic (mm Hg) 2021-01-27 05:00:00 Mendoza rial Vin Diastolic (mm Hg) 2021-01-27 05:00:00 Mem orial [place] Systolic (mm Hg) 2021-01-27 04:00:00 Mendoza rial Vin Diastolic (mm Hg) 2021-01-27 04:00:00 Mem orial Vin Systolic (mm Hg) 2021-01-27 03:00:00 Mendoza rial Vin Diastolic (mm Hg) 2021-01-27 03:00:00 Mem orial Vin Respitory Rate 2021-01-26 19:00:00 Memori al [place] Respitory Rate 2021-01-26 18:00:00 Memori al Vin Respitory Rate 2021-01-26 17:00:00 Memori al [place] Temperature Oral (F) 2021-01-22 13:00:00 97.6 F [facility] [place] Height 2021-01-21 18:25:00 149.86 cm [facility] [place] Weight 2021-01-21 18:25:00 [facility] Vin BMI Calculated 2021-01-21 18:25:00 Memori al [place] Height 2021-01-21 17:09:00 157.48 cm [facility] [place] Height 2021-01-21 13:09:00 157.48 cm [facility] Vin Weight 2021-01-21 13:09:00 [facility] [place] BMI Calculated 2021-01-21 13:09:00 Memori al [place] Heart Rate 2021-01-21 12:50:00 [facility] [place] Systolic (mm Hg) 2020-12-24 15:43:00 Mendoza rial [place] Diastolic (mm Hg) 2020-12-24 15:43:00 Mem orial Vin Heart Rate 2020-12-24 15:43:00 [facility] [place] Height 2020-12-24 15:43:00 154.94 cm [facility] Vin Weight 2020-12-24 15:43:00 [facility] Vin BMI Calculated 2020-12-24 15:43:00 Memori al Vin Systolic (mm Hg) 2016-07-30 14:00:00 Mendoza rial [place] Diastolic (mm Hg) 2016-07-30 14:00:00 Mem orial [place] Respitory Rate 2016-07-30 14:00:00 Memori al Vin Heart Rate 2016-07-30 14:00:00 [facility] [place] Temperature Oral (F) 2016-07-30 14:00:00 97.4 F [facility] [place] Systolic (mm Hg) 2016-07-30 10:45:00 Mendoza rial Vin Diastolic (mm Hg) 2016-07-30 10:45:00 Mem orial Vin Heart Rate 2016-07-30 10:45:00 [facility] Vin Temperature Oral (F) 2016-07-30 10:45:00 97.2 F [facility] Vin Respitory Rate 2016-07-30 10:45:00 Memori al Vin Heart Rate 2016-07-30 06:35:00 [facility] [place] Temperature Oral (F) 2016-07-30 06:35:00 97.0 F [facility] Vin Respitory Rate 2016-07-30 06:35:00 Memori al Vin Systolic (mm Hg) 2016-07-30 06:35:00 Mendoza rial [place] Diastolic (mm Hg) 2016-07-30 06:35:00 Mem orial [place] Weight 2016-07-24 02:13:00 [facility] [place] BMI Calculated 2016-07-24 02:13:00 Memori al Vin Height 2016-07-24 02:13:00 160.02 cm [facility] Vin Respitory Rate 2016-06-15 15:00:00 Memori al [place] Systolic (mm Hg) 2016-06-15 15:00:00 Mendoza rial Vin Diastolic (mm Hg) 2016-06-15 15:00:00 Mem orial [place] Respitory Rate 2016-06-15 14:00:00 Memori al Vin Systolic (mm Hg) 2016-06-15 14:00:00 Mendoza rial Vin Diastolic (mm Hg) 2016-06-15 14:00:00 Mem orial Vin Respitory Rate 2016-06-15 13:29:00 Memori al [place] Systolic (mm Hg) 2016-06-15 13:29:00 Mendoza rial Vin Diastolic (mm Hg) 2016-06-15 13:29:00 Mem orial [place] Temperature Oral (F) 2016-06-14 10:56:00 97.1 F Memorial Vin Temperature Oral (F) 2016-06-14 06:55:00 97.1 F [facility] Vin Temperature Oral (F) 2016-06-12 10:00:00 96.8 F [facility] [place] Weight 2016-06-11 04:25:00 [facility] [place] Height 2016-06-11 04:25:00 160.02 cm [facility] Vin BMI Calculated 2016-06-11 04:25:00 Memori al Vin Heart Rate 2016-06-11 02:04:00 [facility] Vin Heart Rate 2016-06-11 00:00:00 [facility] Vin Heart Rate 2016-06-10 20:30:00 [facility] [place] Weight 2016-06-10 16:04:00 [facility] [place] BMI Calculated 2016-06-10 16:04:00 Memori al Vin Height 2016-06-10 16:04:00 160.02 cm [facility] [place] Temperature Oral (F) 2014-06-26 15:12:00 98.0 F [facility] Vin Systolic (mm Hg) 2014-06-26 15:12:00 Mendoza rial [place] Heart Rate 2014-06-26 15:12:00 [facility] Vin Diastolic (mm Hg) 2014-06-26 15:12:00 Mem orial Vin Respitory Rate 2014-06-26 15:12:00 Memori al [place] Systolic (mm Hg) 2014-06-26 13:53:00 Mendoza rial [place] Diastolic (mm Hg) 2014-06-26 13:53:00 Mem orial [place] Respitory Rate 2014-06-26 13:53:00 Memori al [place] Temperature Oral (F) 2014-06-26 13:53:00 98.0 F [facility] [place] Temperature Oral (F) 2014-06-26 12:37:00 98.2 F [facility] Vin Respitory Rate 2014-06-26 12:37:00 Memori al Vin Systolic (mm Hg) 2014-06-26 12:37:00 Mendoza rial [place] Diastolic (mm Hg) 2014-06-26 12:37:00 Mem orial Vin Heart Rate 2014-06-26 09:21:00 [facility] Vin Heart Rate 2014-06-26 06:08:00 [facility] Vin Height 2014-06-26 05:35:00 154.94 cm [facility] [place] Weight 2014-06-26 05:35:00 [facility] Vin BMI Calculated 2014-06-26 05:35:00 Memori al [place] Respitory Rate 2013-04-15 06:10:00 Memori al [place] Diastolic (mm Hg) 2013-04-15 06:10:00 Mem orial [place] Heart Rate 2013-04-15 06:10:00 [facility] Vin Systolic [...] Vin Height 2013-04-15 02:06:00 160.02 cm [facility] [place] Weight 2013-04-15 02:06:00 [facility] Vin Temperature Oral (F) 2013-04-15 02:06:00 98.6 F [facility] Vin Respitory Rate 2013-04-15 02:06:00 Memori al [place] Heart Rate 2013-04-15 02:06:00 [facility] [place] Diastolic (mm Hg) 2013-04-15 02:06:00 Mem orial Vin Systolic (mm Hg) 2013-04-15 02:06:00 Mendoza rial [place] Weight 2012-03-14 21:33:00 [facility] [place] Systolic (mm Hg) 2011-12-01 00:33:00 Mendoza rial Vin Respitory Rate 2011-12-01 00:33:00 Memori al [place] Heart Rate 2011-12-01 00:33:00 [facility] Vin Diastolic (mm Hg) 2011-12-01 00:33:00 Mem orial Vin Temperature Oral (F) 2011-12-01 00:33:00 99.6 F [facility] [place] Diastolic (mm Hg) 2011-11-30 21:00:00 Mem orial Vin Heart Rate 2011-11-30 21:00:00 [facility] [place] Respitory Rate 2011-11-30 21:00:00 Memori al Vin Systolic (mm Hg) 2011-11-30 21:00:00 Mendoza rial [place] Temperature Oral (F) 2011-11-30 21:00:00 99.8 F [facility] [place] Respitory Rate 2011-11-30 16:30:00 Memori al [place] Systolic (mm Hg) 2011-11-30 16:30:00 Mendoza rial Vin Diastolic (mm Hg) 2011-11-30 16:30:00 Mem orial [place] Heart Rate 2011-11-30 16:30:00 [facility] Vin Temperature Oral (F) 2011-11-30 16:30:00 99.8 F [facility] [place] Weight 2011-11-29 11:40:00 [facility] Vin Height 2011-11-29 11:40:00 157.48 cm [facility] Vin Weight 2011-11-28 17:16:00 [facility] [place] Weight 2011-09-18 13:30:00 [facility] [place] Height 2011-09-18 13:30:00 154.94 cm [facility] [place] Heart Rate 2011-09-09 13:31:00 [facility] [place] Systolic (mm Hg) 2011-09-09 13:02:00 Mendoza rial [place] Diastolic (mm Hg) 2011-09-09 13:02:00 Mem orial [place] Respitory Rate 2011-09-09 13:02:00 Memori al Vin Temperature Oral (F) 2011-09-09 13:02:00 97.5 F [facility] [place] Diastolic (mm Hg) 2011-09-09 08:00:00 Mem orial Vin Heart Rate 2011-09-09 08:00:00 [facility] Vin Temperature Oral (F) 2011-09-09 08:00:00 98.6 F [facility] [place] Respitory Rate 2011-09-09 08:00:00 Memori al Vin Systolic (mm Hg) 2011-09-09 08:00:00 Mendoza rial Vin Respitory Rate 2011-09-09 04:55:00 Memori al Vin Diastolic (mm Hg) 2011-09-09 04:55:00 Mem orial Vin Systolic (mm Hg) 2011-09-09 04:55:00 Mendoza rial [place] Heart Rate 2011-09-09 04:55:00 [facility] [place] Temperature Oral (F) 2011-09-09 00:55:00 98.7 F [facility] Vin Weight 2011-09-01 19:59:00 [facility] [place] Height 2011-09-01 19:59:00 154.94 cm [facility] [place] Height 2011-09-01 07:01:00 154.94 cm [facility] [place] Weight 2011-09-01 07:01:00 [facility] Vin Respitory Rate 2011-08-23 18:00:00 Memori al Vin Heart Rate 2011-08-23 18:00:00 [facility] Systolic (mm Hg) 2011-08-23 18:00:00 Mendoza rial [place] Diastolic (mm Hg) 2011-08-23 18:00:00 Mem orial Vin Temperature Oral (F) 2011-08-23 18:00:00 97.7 F [facility] Vin Heart Rate 2011-08-23 14:24:00 [facility] [place] Temperature Oral (F) 2011-08-23 14:24:00 98.2 F [facility] [place] Diastolic (mm Hg) 2011-08-23 14:24:00 Mem orial [place] Systolic (mm Hg) 2011-08-23 14:24:00 Mendoza rial [place] Respitory Rate 2011-08-23 14:24:00 Memori al Vin Systolic (mm Hg) 2011-08-23 11:15:00 Mendoza rial [place] Diastolic (mm Hg) 2011-08-23 11:15:00 Mem orial Vin Temperature Oral (F) 2011-08-23 11:00:00 98.3 F [facility] [place] Heart Rate 2011-08-23 11:00:00 [facility] Vin Respitory Rate 2011-08-22 22:00:00 Memori al [place] Height 2011-08-20 09:12:00 154.94 cm [facility] Vin Weight 2011-08-20 09:12:00 [facility] [place] Height 2011-08-19 20:28:00 154.94 cm [facility] Vin Weight 2011-08-19 20:28:00 [facility] Procedures Procedure Date / Time Performing Clinician Source Performed POC GLUCOSE 2021-06-18 17:00:00 Aurelio Schumacher [facility] HEPATITIS B SURFACE 2021-06-18 14:07:00 Bill Cooper [facility] ANTIGEN VANCOMYCIN LEVEL, RANDOM 2021-06-18 13:44:00 Char Viramontes [facility] HC COMPLETE BLD COUNT 2021-06-18 13:44:00 Aurelio Schumacher [facility] W/AUTO DIFF BASIC METABOLIC PANEL 2021-06-18 11:27:00 patricioFaizapallavi [facility] ESTIMATED GFR 2021-06-18 11:27:00 Faiza Schumacherpallavi [facility] POC GLUCOSE 2021-06-18 08:07:00 Faiza Schumacherad [facility] HEMODIALYSIS 2021-06-18 06:16:53 Kenneth Bill [facility] POC GLUCOSE 2021-06-18 01:26:00 Endy Omad [facility] POC GLUCOSE 2021-06-17 21:58:00 Aurelio Schumacher [facility] HEMODIALYSIS 2021-06-17 18:25:45 Kenneth Bill [facility] POC GLUCOSE 2021-06-17 17:36:00 Faiza Schumacherpallavi [facility] POC GLUCOSE 2021-06-17 13:51:00 [facility] BASIC METABOLIC PANEL 2021-06-17 11:16:00 [facility] HC COMPLETE BLD COUNT 2021-06-17 11:16:00 [facility] W/AUTO DIFF ESTIMATED GFR 2021-06-17 11:16:00 [facility] POC GLUCOSE 2021-06-17 02:50:00 [facility] CONSULT TO OSTOMY CARE 2021-06-17 00:31:48 [facility] NURSE HC COMPLETE BLD COUNT 2021-06-16 23:31:00 [facility] W/AUTO DIFF BASIC METABOLIC PANEL 2021-06-16 23:31:00 [facility] ESTIMATED GFR 2021-06-16 23:31:00 [facility] POC GLUCOSE 2021-06-16 23:19:00 [facility] OR [place] < 1 HOUR 2021-06-16 22:49:00 [facility] 2021-06-16 22:36:00 Mando Diaz [facility] JoeHsi FUNGUS CULTURE 2021-06-16 22:36:00 Mando Diaz [facility] Diaz-Hsi AEROBIC CULTURE 2021-06-16 22:36:00 Mando Diaz [facility] Diaz[facility]si GRAM STAIN 2021-06-16 22:36:00 Mando Diaz [facility] Diaz[facility]Hsi IN AN ELECTIVE 2021-06-16 21:30:00 Jocelyne Zepeda [facility] SUPRAGLOTTIC AIRWAY AORTOGRAPHY, POSSIBLE 2021-06-16 21:17:00 [facility]si POC , URINE 2021-06-16 20:46:00 [facility] POTASSIUM LEVEL 2021-06-16 17:28:00 [facility] POC GLUCOSE 2021-06-16 11:39:00 [facility] BASIC METABOLIC PANEL 2021-06-16 10:08:00 [facility] HC COMPLETE BLD COUNT 2021-06-16 10:08:00 [facility] W/AUTO DIFF PROTHROMBIN TIME WITH INR 2021-06-16 10:08:00 [facility] PARTIAL THROMBOPLASTIN 2021-06-16 10:08:00 [facility] TIME (PTT) TYPE AND SCREEN 2021-06-16 10:08:00 Char Viramontes ospital ESTIMATED GFR 2021-06-16 10:08:00 [facility] POC GLUCOSE 2021-06-16 01:59:00 [facility] POC GLUCOSE 2021-06-15 22:58:00 [facility] COVID-19 QUALITATIVE 2021-06-15 19:29:00 [facility] RT-PCR POC GLUCOSE 2021-06-15 17:42:00 [facility] HEMODIALYSIS 2021-06-15 16:17:54 Vellanki, Vinitha [facility] POC GLUCOSE 2021-06-15 15:41:00 [facility] POC GLUCOSE 2021-06-15 13:44:00 [facility] POC GLUCOSE 2021-06-15 13:00:00 [facility] ECG 12-LEAD 2021-06-15 12:48:21 Leni Barker spital HC COMPLETE BLD COUNT 2021-06-15 11:42:00 [facility] W/AUTO DIFF BASIC METABOLIC PANEL 2021-06-15 11:42:00 [facility] ESTIMATED GFR 2021-06-15 11:42:00 [facility] POC GLUCOSE 2021-06-15 01:31:00 [facility] US DUPLEX ARTERIAL LOWER 2021-06-14 21:55:33 [facility] EXTREMITY RIGHT POC GLUCOSE 2021-06-14 21:51:00 [facility] POC GLUCOSE 2021-06-14 17:36:00 [facility] POC GLUCOSE 2021-06-14 13:30:00 [facility] POC GLUCOSE 2021-06-14 13:29:00 [facility] HC COMPLETE BLD COUNT 2021-06-14 10:13:00 [facility] W/AUTO DIFF BASIC METABOLIC PANEL 2021-06-14 10:13:00 [facility] ESTIMATED GFR 2021-06-14 10:13:00 [facility] POC GLUCOSE 2021-06-14 02:45:00 [facility] POC GLUCOSE 2021-06-13 21:47:00 [facility] POC GLUCOSE 2021-06-13 20:46:00 [facility] CBC WITH PLATELET AND 2021-06-13 16:10:00 [facility] DIFFERENTIAL COMPREHENSIVE METABOLIC 2021-06-13 16:10:00 [facility] PANEL ESTIMATED GFR 2021-06-13 16:10:00 [facility] HEMODIALYSIS 2021-06-13 15:26:35 [facility] POC GLUCOSE 2021-06-13 14:30:00 [facility] VANCOMYCIN LEVEL, RANDOM 2021-06-13 10:59:00 KenyattaJuwan [facility] POC GLUCOSE 2021-06-13 10:40:00 [facility] [...] HEAD WO CONTRAST 2021-06-12 00:53:00 Holden Nagel [facility] Ramírez POC GLUCOSE 2021-06-11 18:08:00 Holden Nagel [facility] [place] POC GLUCOSE 2021-06-11 13:39:00 Holden Nagel spital Ramí[place] HEMODIALYSIS 2021-06-11 12:38:38 [facility] POC GLUCOSE 2021-06-11 02:01:00 Holden Nagel Ho spital [place] POC GLUCOSE 2021-06-10 22:15:00 Holden Nagel Ho spital [place] POC GLUCOSE 2021-06-10 17:39:00 Holden Nagel Ho spital [place] POC GLUCOSE 2021-06-10 16:05:00 Holden Nagel spital Ramírez TISSUE CULTURE 2021-06-10 15:08:00 Kenyatta, Juwan Whyte spital GRAM STAIN 2021-06-10 15:08:00 Kenyatta, Juwan Whyte spital ANAEROBIC CULTURE 2021-06-10 15:04:00 [facility] FUNGUS CULTURE 2021-06-10 15:04:00 Kenyatta, Juwan Whyte spital AEROBIC CULTURE 2021-06-10 15:04:00 Kenyatta, Juwan Whyte spital AFB CULTURE 2021-06-10 15:04:00 Kenyatta, Juwan Whyte spital GRAM STAIN 2021-06-10 15:04:00 Kenyatta, Juwancaron Whyte spital AF[employer] STAIN 2021-06-10 15:04:00 Kenyatta, Juwan Whyte spital IN AN ELECTIVE 2021-06-10 14:26:00 Sofi Roach spital SUPRAGLOTTIC AIRWAY Marquita INCISION AND DRAINAGE, 2021-06-10 14:26:00 , [facility] LOWER EXTREMITY HC COMPLETE BLD COUNT 2021-06-10 10:20:00 , [facility] W/AUTO DIFF BASIC METABOLIC PANEL 2021-06-10 10:20:00 , [facility] PROTHROMBIN TIME WITH INR 2021-06-10 10:20:00 , [facility] PARTIAL THROMBOPLASTIN 2021-06-10 10:20:00 [facility] TIME (PTT) TYPE AND SCREEN 2021-06-10 10:20:00 Holden Nagel spital Ramírez ESTIMATED GFR 2021-06-10 10:20:00 Juwan You spital POC GLUCOSE 2021-06-10 03:11:00 Holden Nagel spital Ramírez POC GLUCOSE 2021-06-10 01:30:00 Holden Nagel spital Ramírez POC GLUCOSE 2021-06-09 22:22:00 Holden Nagel spital Ramírez POC GLUCOSE 2021-06-09 13:55:00 Holden Nagel spital Ramírez HEMODIALYSIS 2021-06-09 13:20:01 [facility] VANCOMYCIN LEVEL, RANDOM 2021-06-09 11:46:00 [facility] POC GLUCOSE 2021-06-09 02:06:00 Holden Nagel spital Ramírez POC GLUCOSE 2021-06-08 22:23:00 Holden Nagel spital Ramírez POC GLUCOSE 2021-06-08 17:53:00 Holden Nagel spital Ramírez HC COMPLETE BLD COUNT 2021-06-08 16:06:00 [facility] W/AUTO DIFF POC GLUCOSE 2021-06-08 13:56:00 Holden Nagel spital Ramírez URINE CULTURE 2021-06-08 03:56:00 Holden Nagel spital Ramírez URINALYSIS SCREEN AND 2021-06-08 03:32:00 [facility] MICROSCOPY, WITH REFLEX TO CULTURE POC GLUCOSE 2021-06-08 01:15:00 Holden Nagel spital Ramírez POC GLUCOSE 2021-06-07 22:07:00 Holden Nagel spital Ramírez POC GLUCOSE 2021-06-07 18:01:00 Holden Nagel spital Ramírez BASIC METABOLIC PANEL 2021-06-07 14:15:00 [facility] ESTIMATED GFR 2021-06-07 14:15:00 Holden Nagel spital Ramírez POC GLUCOSE 2021-06-07 13:56:00 Holden Nagel spital Ramírez POC GLUCOSE 2021-06-07 02:54:00 Holden Nagel spital Ramírez CT LOWER EXTREMITY W 2021-06-07 01:22:59 [facility] CONTRAST RIGHT POC GLUCOSE 2021-06-06 23:50:00 Holden Nagel Ho spital Ramírez POC GLUCOSE 2021-06-06 17:31:00 Nagel, Holden Whyte Ho spital Ramírez HEMODIALYSIS 2021-06-06 15:05:52 Delfino Akbar [facility] POC GLUCOSE 2021-06-06 14:03:00 Robe, Holden Whyte spital Ramírez HC COMPLETE BLD COUNT 2021-06-06 10:31:00 [facility] W/AUTO DIFF BASIC METABOLIC PANEL 2021-06-06 10:31:00 [facility] ESTIMATED GFR 2021-06-06 10:31:00 Holden Nagel spital Ramírez POC GLUCOSE 2021-06-06 10:14:00 Holden Nagel spital Ramírez POC GLUCOSE 2021-06-06 06:26:00 Holden Nagel spital Ramírez POC GLUCOSE 2021-06-06 02:41:00 NagelHolden rodriguez spital Ramírez POC GLUCOSE 2021-06-05 19:51:00 NagelHolden rodriguez spital Ramírez BASIC METABOLIC PANEL 2021-06-05 18:06:00 [facility] HC COMPLETE BLD COUNT 2021-06-05 18:06:00 [facility] W/AUTO DIFF ESTIMATED GFR 2021-06-05 18:06:00 Holden Nagel spital Ramírez POC GLUCOSE 2021-06-05 17:48:00 Holden Nagel spital Ramírez ANAEROBIC CULTURE 2021-06-05 17:10:00 Kenyatta [facility] ANAEROBIC CULTURE 2021-06-05 16:59:00 Kenyatta [facility] FUNGUS CULTURE 2021-06-05 16:59:00 Juwan You spital AEROBIC CULTURE 2021-06-05 16:59:00 Juwan You spital AFB CULTURE 2021-06-05 16:59:00 Juwan You spital FUNGUS SMEAR 2021-06-05 16:59:00 Juwan You spital AF[employer] STAIN 2021-06-05 16:59:00 [facility] IN AN ELECTIVE 2021-06-05 16:52:08 Chandler Silverman [facility] SUPRAGLOTTIC AIRWAY TISSUE CULTURE 2021-06-05 16:50:00 [facility] GR[facility]AIN 2021-06-05 16:50:00 Juwan You spital DEBRIDEMENT, LOWER 2021-06-05 16:16:00 Kenyatta [facility] EXTREMITY POC GLUCOSE 2021-06-05 13:32:00 [facility] rajeshtal Ramírez TROPONIN T 2021-06-05 10:58:00 [facility] ospital ABO AND RH CONFIRMATION BY 2021-06-05 10:54:00 [facility] PROTOCOL Vipin BASIC METABOLIC PANEL 2021-06-05 10:53:00 [facility] HC COMPLETE BLD COUNT 2021-06-05 10:53:00 [facility] W/AUTO DIFF ESTIMATED GFR 2021-06-05 10:53:00 Sivan Stewart [facility] PROTHROMBIN TIME WITH INR 2021-06-05 10:52:00 [facility] PARTIAL THROMBOPLASTIN 2021-06-05 10:52:00 [facility] TIME (PTT) HCG QUALITATIVE, SERUM 2021-06-05 10:52:00 Myron Fernandes [facility] SCREEN POC GLUCOSE 2021-06-05 09:40:00 Rachel Brasher spital Vipin BLOOD CULTURE, AEROBIC & 2021-06-05 08:27:00 Rachel Brasher [facility] ANAEROBIC Vipin POC GLUCOSE 2021-06-05 07:42:00 Rachel Brasher Ho spital Vipin POC GLUCOSE 2021-06-05 06:57:00 Rachel Brasher spital Vipin POC GLUCOSE 2021-06-05 06:10:00 Holden Nagel spital Ramírez BLOOD CULTURE, AEROBIC & 2021-06-05 04:31:00 Rachel Brasher [facility] ANAEROBIC Vipin POC GLUCOSE 2021-06-05 04:04:00 Rachel Brasher Ho spital Vipin POC GLUCOSE 2021-06-05 03:51:00 Rachel Brasher Ho spital Viipn TYPE AND SCREEN 2021-06-05 03:40:00 Rachel Brasher Ho spital Vipin POC GLUCOSE 2021-06-05 03:05:00 Rachel Brasher Ho spital Vipin POC GLUCOSE 2021-06-05 02:23:00 Rachel Brasher spital Vipin COVID-19 QUALITATIVE 2021-06-05 02:08:00 Sivan Stewart [facility] RT-PCR HC COMPLETE BLD COUNT 2021-06-05 01:24:00 Sivan Stewart [facility] W/AUTO DIFF PROTHROMBIN TIME WITH INR 2021-06-05 01:24:00 [facility] THROMBOPLASTIN 2021-06-05 01:24:00 [facility] TIME (PTT) COMPREHENSIVE METABOLIC 2021-06-05 01:24:00 [facility] PANEL CREATINE KINASE, TOTAL 2021-06-05 01:24:00 [facility] ([facility]) B NATRIURETIC PEPTIDE 2021-06-05 01:24:00 Sivan Stewart [facility] TROPONIN T 2021-06-05 01:24:00 Char Viramontes [facility] ospital ESTIMATED GFR 2021-06-05 01:24:00 [facility] ED PRELIMINARY 2021-06-05 00:31:28 [facility] 12-LEAD 2021-06-05 00:19:17 Rachel Brasher spital Vipin POC GLUCOSE 2021-05-25 18:04:00 Awe, Marilu Arvin [facility] POC GLUCOSE 2021-05-25 14:00:00 Awe, Marilu [facility] HEMO[facility] 2021-05-25 10:12:00 Awe, Marilu Arvin [facility] BASIC METABOLIC PANEL 2021-05-25 10:12:00 [facility] ESTIM[facility]FR 2021-05-25 10:12:00 Awe, Marilu [facility]vin [facility] POC GLUCOSE 2021-05-25 02:49:00 Awe, Marilu Arvin [facility] POC GLUCOSE 2021-05-24 23:33:00 Awe, Marilu [facility] POC GLUCOSE 2021-05-24 17:56:00 Awe, Marilu Arvin [facility] POC GLUCOSE 2021-05-24 13:59:00 Awe, Marilu [facility]vin [facility] CBC HEMOGRAM 2021-05-24 10:12:00 Awe, Marilu Arvin [facility] BASIC METABOLIC PANEL 2021-05-24 10:12:00 Awe, [facility] ESTIMATED GFR 2021-05-24 10:12:00 Awe, Marilu Arvin [facility] POC GLUCOSE 2021-05-24 09:59:00 Awe, Marilu Arvin [facility] POC GLUCOSE 2021-05-24 02:26:00 Awe, [facility] POC GLUCOSE 2021-05-24 00:03:00 Awe, Marilu [facility] TRANSFUSE RED BLOOD CELLS 2021-05-23 22:30:00 Char Viramontes [facility] TRANSFUSE RED BLOOD CELLS 2021-05-23 21:30:00 [facility] POC GLUCOSE 2021-05-23 19:03:00 Awe, Marilu Arvin [facility] TYPE AND SCREEN 2021-05-23 14:38:00 [facility] HC COMPLETE BLD COUNT 2021-05-23 14:38:[facility]FF PREPARE RBC 2021-05-23 14:38:00 [facility] ospital PREPARE PLATELET PHERESIS 2021-05-23 14:38:00 [facility] POC GLU[facility]SE 2021-05-23 14:35:00 Awe, [facility] HEMODIALYSIS 2021-05-23 13:42:30 [facility] 2021-05-23 12:31:00 Awe, [facility] BASIC METABOLIC PANEL 2021-05-23 12:31:00 Awe, [facility] ESTIMATED GFR 2021-05-23 12:31:00 [facility], [facility] P[facility] 2021-05-23 11:22:00 [facility], [facility] POC GLUCOSE 2021-05-23 03:30:00 [facility], [facility] 2021-05-22 23:20:00 Awe, [facility] POC GLUCOSE 2021-05-22 17:20:00 Awe, [facility] POC GLUCOSE 2021-05-22 13:27:00 Awe, [facility] BASIC METABOLIC PANEL 2021-05-22 12:31:00 Nikki Haynes [facility] Rahel MAGNESIUM LEVEL 2021-05-22 12:31:00 Nikki Haynes ospital Rahel CBC HEMOGRAM 2021-05-22 12:31:00 Nikki Haynes ospital Rahel ESTIMATED GFR 2021-05-22 12:31:00 Nikki Haynes ospital Rahel POC GLUCOSE 2021-05-22 10:54:00 Awe, [facility] POC GLUCOSE 2021-05-22 07:28:00 Awe, [facility] POC GLUCOSE 2021-05-22 01:11:00 Awe, [facility] HEPATITIS B SURFACE 2021-05-21 21:08:00 [facility] ANTIBODY HEMODIALYSIS 2021-05-21 20:57:40 [facility] POC GLUCOSE 2021-05-21 17:57:00 Awe, [facility] POC GLUCOSE 2021-05-21 13:55:00 Awe, [facility] POC GLUCOSE 2021-05-21 10:41:00 Tom BarberZCOVID-19 ANTI-SPIKE IGG 2021-05-21 07:43:00 IshanClyde [facility] ANTIBODY TITER Esa BASIC METABOLIC PANEL 2021-05-21 07:43:00 [facility] Rahel MAGNESIUM LEVEL 2021-05-21 07:43:00 WestwoodClaudyNikki [facility] Rahel CBC HEMOGRAM 2021-05-21 07:43:00 [facility] Rahel ZZCOVID-19 SEROLOGY 2021-05-21 07:43:00 [facility] PATIENT SURVEILLANCE Esa ESTIMATED GFR 2021-05-21 07:43:00 Andre Sofia LACTIC ACID LEVEL 2021-05-21 07:43:00 Leodan Stevenson [facility] POC GLUCOSE 2021-05-21 06:35:00 Tom Barber HC COMPLETE BLD COUNT 2021-05-21 02:49:00 [facility] W/AUTO DIFF BASIC METABOLIC PANEL 2021-05-21 02:49:00 [facility] LACTIC ACID LEVEL 2021-05-21 02:49:00 [facility] OSMOLALITY, SERUM 2021-05-21 02:49:00 [facility] BETA HYDROXYBUTYRATE 2021-05-21 02:49:00 [facility] PROCALCITONIN 2021-05-21 02:49:00 [facility] ESTIMATED GFR 2021-05-21 02:49:00 [facility] POC GLUCOSE 2021-05-21 02:34:00 Tom Barber spital HC COMPLETE BLD COUNT 2021-05-21 00:28:00 [facility]FF POC GLUCOSE 2021-05-20 23:57:00 Tom Barber spital BASIC METABOLIC PANEL 2021-05-20 23:20:00 Andre Sofia [facility] LACTIC ACID LEVEL 2021-05-20 23:20:00 Kimberlyn [facility] ESTIMATED GFR 2021-05-20 23:20:00 Andre Sofia spital [...] RED BLOOD CELLS 2021-05-20 17:21:00 Andre Sofia [facility] [place] TRANSFUSE PLATELET 2021-05-20 15:52:00 [facility]ESIS BASIC METABOLIC PANEL 2021-05-20 15:25:[address] [facility] [place] ESTIMATED GFR 2021-05-20 15:25:00 Andre Sofia spital [place] POC GLUCOSE 2021-05-20 14:48:00 Tom Barber spital HEMODIALYSIS 2021-05-20 11:31:20 [facility] POC GLUCOSE 2021-05-20 10:44:00 Tom Barber spital HEPATITIS B SURFACE 2021-05-20 08:49:00 [facility] ANTIGEN HEPATITIS B SURFACE AB, 2021-05-20 08:49:00 [facility] QUANTITATIVE HC COMPLETE BLD COUNT 2021-05-20 08:25:00 [facility] W/AUTO DIFF BASIC METABOLIC PANEL 2021-05-20 08:25:00 [facility] MAGNESIUM LEVEL 2021-05-20 08:25:00 [facility] ospital PHOSPHORUS LEVEL 2021-05-20 08:25:00 [facility] PROTHROMBIN TIME WITH INR 2021-05-20 08:25:00 [facility] ESTIMATED GFR 2021-05-20 08:25:00 Juwan You spital HEMOGLOBIN A1C 2021-05-20 08:25:00 Nikki Haynes H ospital Rahel POC GLUCOSE 2021-05-20 06:34:00 Tom Barber spital ARTERIAL BLOOD GAS 2021-05-20 04:36:00 Graham [facility] ECG 12-LEAD 2021-05-20 03:42:28 Graham [facility] spital PROTHROMBIN TIME WITH INR 2021-05-20 02:54:00 [facility] HC COMPLETE BLD COUNT 2021-05-20 02:54:00 Leodan Stevenson [facility] W/AUTO DIFF BASIC METABOLIC PANEL 2021-05-20 02:54:00 [facility] LACTIC ACID LEVEL 2021-05-20 02:54:00 [facility] VENOUS BLOOD GAS 2021-05-20 02:54:00 [facility] osp[facility] ESTIMATED GFR 2021-05-20 02:54:00 [facility] Ho spital POC GLUCOSE 2021-05-20 02:54:00 Tom Barber spital XR CHEST 1 VW PORTABLE 2021-05-20 02:51:13 [facility] OR [place] < 1 HOUR 2021-05-20 01:30:15 Juwan You spital TRANSFUSE RED BLOOD CELLS 2021-05-20 00:59:00 Juwan You [facility] IN AN ELECTIVE 2021-05-20 00:53:01 Sukhjinder Medina spital SUPRAGLOTTIC AIRWAY Kendall INCISION AND DRAINAGE, 2021-05-20 00:45:00 Kenyatta [facility] HEMATOMA HC COMPLETE BLD COUNT 2021-05-19 22:13:00 [facility] W/AUTO DIFF BASIC METABOLIC PANEL 2021-05-19 22:13:00 [facility] PROTHROMBIN TIME WITH INR 2021-05-19 22:13:00 [facility] PARTIAL THROMBOPLASTIN 2021-05-19 22:13:00 [facility] TIME (PTT) MAGNESIUM LEVEL 2021-05-19 22:13:00 [facility] ospital ESTIMATED GFR 2021-05-19 22:13:00 Juwan You spital POC GLUCOSE 2021-05-19 22:00:00 Errol Luther [facility] SURGICAL PATHOLOGY REQUEST 2021-05-19 21:47:00 Errol Luther [facility] POC GLUCOSE 2021-05-19 21:17:00 Juwan You spital ACTIVATED CLOTTING TIME 2021-05-19 19:12:00 Tom Barber [facility] IN AN ELECTIVE 2021-05-19 18:11:04 Sukhjinder Medina spital SUPRAGLOTTIC AIRWAY [place] LOWER EXTREMITY 2021-05-19 17:59:00 Juwan You spigabe ANGIOGRAM,POSSIBLE ANGIOPLASTY,POSSIBLE STENT XR CHEST 1 VW PORTABLE 2021-05-19 15:47:37 Juwan You [facility] ESTIMATED GFR 2021-05-19 14:34:00 Juwan You spital POC PANEL 2021-05-19 14:34:00 Juwan You spital TYPE AND SCREEN 2021-05-19 14:05:00 Isabell Dickerson PREPARE RBC 2021-05-19 14:05:00 [facility] ospital PREPARE FRESH FROZEN 2021-05-19 14:05:00 [facility] PLASMA PREPARE PLATELET PHERESIS 2021-05-19 14:05:00 [facility] BASIC METABOLIC PANEL 2021-05-19 14:00:00 [facility] Larry Romero PROTHROMBIN TIME WITH INR 2021-05-19 14:00:00 [facility] Larry Romero HC COMPLETE BLD COUNT 2021-05-19 14:00:00 [facility] W/AUTO DIFF Larry Romero ABO AND RH CONFIRMATION BY 2021-05-19 14:00:00 [facility] PROTOCOL ESTIMATED GFR 2021-05-19 14:00:00 [facility] Dickerson [facility] COVID-19 QUALITATIVE 2021-05-19 12:40:00 [facility]PCR MEDICAL RELEASE/CLEARANCE 2021-05-13 06:01:00 Doctor Unassigned, [facility] FORMS [facility] US DUPLEX ARTERIAL LOWER 2021-05-12 15:21:31 Juwan You [facility] EXTREMITY BILATERAL Emergency department visit 2013-04-15 05:00:00 [...] procedure) Therapeutic, prophylactic, 2013-04-15 05:00:00 [facility] or diagnostic injection (specify substance or drug); each additional sequential intravenous push of a new substance/drug (List separately in addition to code for primary procedure) Therapeutic, prophylactic, 2013-04-15 05:00:00 [facility] or diagnostic injection (specify substance or drug); intravenous push, single or initial substance/drug [facility] (esophagogastroduodenoscop y) gastric outlet reduction section Shahid Joseph n Tubal ligation [facility] 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 Test 23:23:00 (1 of 3 - 3-dose series) [code = HEPATITIS B VACCINES (1 of 3 - 3-dose series)] Future Scheduled 2022-12-04 COVID-19 VACCINE (#1) [facility] Test 23:23:00 [code = COVID-19 VACCINE (#1)] Future Scheduled 2022-12-04 Pneumococcal Vaccine: [facility] Test 23:23:00 Pediatrics (0 to 5 Years) and At-Risk Patients (6 to 64 Years) (1 - PCV) [code = Pneumococcal Vaccine: Pediatrics (0 to 5 Years) and At-Risk Patients (6 to 64 Years) (1 - PCV)] Future Scheduled 2022-12-04 Hepatitis C screening [facility] Test 23:23:00 (procedure) [code = 440828881] Future Scheduled 2022-12-04 Screening for [facility] Test 23:23:00 malignant neoplasm of cervix (procedure) [code = 825328077] Future Scheduled 2022-12-04 BREAST CANCER [facility] Test 23:23:00 SCREENING [code = BREAST CANCER SCREENING] Future Scheduled 2022-12-04 INFLUENZA VACCINE Method [facility] Test 23:23:00 [code = INFLUENZA VACCINE] Future Scheduled 2022-12-04 HEPATITIS B VACCINES Met [facility] Test 23:23:00 (1 of 3 - 3-dose series) [code = HEPATITIS B VACCINES (1 of 3 - 3-dose series)] Future Scheduled 2022-12-04 COVID-19 VACCINE (#1) [facility] Test 23:23:00 [code = COVID-19 VACCINE (#1)] Future Scheduled 2022-12-04 Pneumococcal Vaccine: [facility] Test 23:23:00 Pediatrics (0 to 5 Years) and At-Risk Patients (6 to 64 Years) (1 - PCV) [code = Pneumococcal Vaccine: Pediatrics (0 to 5 Years) and At-Risk Patients (6 to 64 Years) (1 - PCV)] Future Scheduled 2022-12-04 Hepatitis C screening [facility] Test 23:23:00 (procedure) [code = [id number]] Future Scheduled 2022-12-04 Screening for [facility] Test 23:23:00 malignant neoplasm of cervix (procedure) [code = 694051782] Future Scheduled 2022-12-04 BREAST CANCER [facility] Test 23:23:00 SCREENING [code = BREAST CANCER SCREENING] Future Scheduled 2022-12-04 INFLUENZA VACCINE Method [facility] Test 23:23:00 [code = INFLUENZA VACCINE] Future Scheduled 2022-11-12 HEPATITIS B VACCINES Met [facility] Test 20:50:47 (1 of 3 - 3-dose series) [code = HEPATITIS B VACCINES (1 of 3 - 3-dose series)] Future Scheduled 2022-11-12 COVID-19 VACCINE (#1) [facility] Test 20:50:47 [code = COVID-19 VACCINE (#1)] Future Scheduled 2022-11-12 Pneumococcal Vaccine: [facility] Test 20:50:47 Pediatrics (0 to 5 Years) and At-Risk Patients (6 to 64 Years) (1 - PCV) [code = Pneumococcal Vaccine: Pediatrics (0 to 5 Years) and At-Risk Patients (6 to 64 Years) (1 - PCV)] Future Scheduled 2022-11-12 Hepatitis C screening [facility] Test 20:50:47 (procedure) [code = [id number]] Future Scheduled 2022-11-12 [facility] Test 20:50:47 malignant neoplasm of cervix (procedure) [code = 969046521] Future Scheduled 2022-11-12 BREAST CANCER [facility] Test 20:50:47 SCREENING [code = BREAST CANCER SCREENING] Future Scheduled 2022-11-12 INFLUENZA VACCINE Method [facility] Test 20:50:47 [code = INFLUENZA VACCINE] Future Scheduled 2022-11-12 HEPATITIS B VACCINES Met [facility] Test 20:50:47 (1 of 3 - 3-dose series) [code = HEPATITIS B VACCINES (1 of 3 - 3-dose series)] Future Scheduled 2022-11-12 COVID-19 VACCINE (#1) [facility] Test 20:50:47 [code = COVID-19 VACCINE (#1)] Future Scheduled 2022-11-12 Pneumococcal Vaccine: [facility] Test 20:50:47 Pediatrics (0 to 5 Years) and At-Risk Patients (6 to 64 Years) (1 - PCV) [code = Pneumococcal Vaccine: Pediatrics (0 to 5 Years) and At-Risk Patients (6 to 64 Years) (1 - PCV)] Future Scheduled 2022-11-12 Hepatitis C screening [facility] Test 20:50:47 (procedure) [code = [id number]] Future Scheduled 2022-11-12 [facility] Test 20:50:47 malignant neoplasm of cervix (procedure) [code = [id number]] Future Scheduled 2022-11-12 BREAST CANCER [facility] Test 20:50:47 SCREENING [code = BREAST CANCER SCREENING] Future Scheduled 2022-11-12 INFLUENZA VACCINE Method [facility] Test 20:50:47 [code = INFLUENZA VACCINE] Future Scheduled 2022-11-12 HEPATITIS B VACCINES Met [facility] Test 20:50:47 (1 of 3 - 3-dose series) [code = HEPATITIS B VACCINES (1 of 3 - 3-dose series)] Future Scheduled 2022-11-12 COVID-19 VACCINE (#1) [facility] Test 20:50:47 [code = COVID-19 VACCINE (#1)] Future Scheduled 2022-11-12 Pneumococcal Vaccine: [facility] Test 20:50:47 Pediatrics (0 to 5 Years) and At-Risk Patients (6 to 64 Years) (1 - PCV) [code = Pneumococcal Vaccine: Pediatrics (0 to 5 Years) and At-Risk Patients (6 to 64 Years) (1 - PCV)] Future Scheduled 2022-11-12 Hepatitis C screening [facility] Test 20:50:47 (procedure) [code = [id number]] Future Scheduled 2022-11-12 [facility] Test 20:50:47 malignant neoplasm of cervix (procedure) [code = [id number]] Future Scheduled 2022-11-12 BREAST CANCER [facility] Test 20:50:47 SCREENING [code = BREAST CANCER SCREENING] Future Scheduled 2022-11-12 INFLUENZA VACCINE Method [facility] Test 20:50:47 [code = INFLUENZA VACCINE] Future Scheduled 2022-10-23 HEPATITIS B VACCINES Met [facility] Test 05:16:19 (1 of 3 - 3-dose series) [code = HEPATITIS B VACCINES (1 of 3 - 3-dose series)] Future Scheduled 2022-10-23 COVID-19 VACCINE (#1) [facility] Test 05:16:19 [code = COVID-19 VACCINE (#1)] Future Scheduled 2022-10-23 Pneumococcal Vaccine: [facility] Test 05:16:19 Pediatrics (0 to 5 Years) and At-Risk Patients (6 to 64 Years) (1 - PCV) [code = Pneumococcal Vaccine: Pediatrics (0 to 5 Years) and At-Risk Patients (6 to 64 Years) (1 - PCV)] Future Scheduled 2022-10-23 Hepatitis C screening [facility] Test 05:16:19 (procedure) [code = [id number]] Future Scheduled 2022-10-23 Screening for [facility] Test 05:16:19 malignant neoplasm of cervix (procedure) [code = 047704003] Future Scheduled 2022-10-23 BREAST CANCER [facility] Test 05:16:19 SCREENING [code = BREAST CANCER SCREENING] Future Scheduled 2022-10-23 INFLUENZA VACCINE [facility] Test 05:16:19 [code = INFLUENZA VACCINE] Future Scheduled 2022-06-11 HEPATITIS B VACCINES Met [facility] Test 02:09:30 (1 of 3 - 3-dose series) [code = HEPATITIS B VACCINES (1 of 3 - 3-dose series)] Future Scheduled 2022-06-11 COVID-19 VACCINE (#1) [facility] Test 02:09:30 [code = COVID-19 VACCINE (#1)] Future Scheduled 2022-06-11 Pneumococcal Vaccine: [facility] Test 02:09:30 Pediatrics (0 to 5 Years) and At-Risk Patients (6 to 64 Years) (1 - PCV) [code = Pneumococcal Vaccine: Pediatrics (0 to 5 Years) and At-Risk Patients (6 to 64 Years) (1 - PCV)] Future Scheduled 2022-06-11 Hepatitis C screening [facility] Test 02:09:30 (procedure) [code = 861156328] Future Scheduled 2022-06-11 Screening for [facility] Test 02:09:30 malignant neoplasm of cervix (procedure) [code = 432469420] Future Scheduled 2022-06-11 INFLUENZA VACCINE Method [facility] Test 02:09:30 [code = INFLUENZA VACCINE] Future Scheduled 2022-06-11 HEPATITIS B VACCINES Met [facility] Test 02:09:30 (1 of 3 - 3-dose series) [code = HEPATITIS B VACCINES (1 of 3 - 3-dose series)] Future Scheduled 2022-06-11 COVID-19 VACCINE (#1) [facility] Test 02:09:30 [code = COVID-19 VACCINE (#1)] Future Scheduled 2022-06-11 Pneumococcal Vaccine: [facility] Test 02:09:30 Pediatrics (0 to 5 Years) and At-Risk Patients (6 to 64 Years) (1 - PCV) [code = Pneumococcal Vaccine: Pediatrics (0 to 5 Years) and At-Risk Patients (6 to 64 Years) (1 - PCV)] Future Scheduled 2022-06-11 Hepatitis C screening [facility] Test 02:09:30 (procedure) [code = 025177770] Future Scheduled 2022-06-11 Screening for [facility] Test 02:09:30 malignant neoplasm of cervix (procedure) [code = 873653760] Future Scheduled 2022-06-11 INFLUENZA VACCINE Method [facility] Test 02:09:30 [code = INFLUENZA VACCINE] Future Scheduled 2022-06-11 HEPATITIS B VACCINES Met [facility] Test 02:09:30 (1 of 3 - 3-dose series) [code = HEPATITIS B VACCINES (1 of 3 - 3-dose series)] Future Scheduled 2022-06-11 COVID-19 VACCINE (#1) [facility] Test 02:09:30 [code = COVID-19 VACCINE (#1)] Future Scheduled 2022-06-11 Pneumococcal Vaccine: [facility] Test 02:09:30 Pediatrics (0 to 5 Years) and At-Risk Patients (6 to 64 Years) (1 - PCV) [code = Pneumococcal Vaccine: Pediatrics (0 to 5 Years) and At-Risk Patients (6 to 64 Years) (1 - PCV)] Future Scheduled 2022-06-11 Hepatitis C screening [facility] Test 02:09:30 (procedure) [code = 216576864] Future Scheduled 2022-06-11 Screening for [facility] Test 02:09:30 malignant neoplasm of cervix (procedure) [code = 875733994] Future Scheduled 2022-06-11 INFLUENZA VACCINE Method [facility] Test 02:09:30 [code = INFLUENZA VACCINE] Future Scheduled 2022-06-11 HEPATITIS B VACCINES Met [facility] Test 02:09:30 (1 of 3 - 3-dose series) [code = HEPATITIS B VACCINES (1 of 3 - 3-dose series)] Future Scheduled 2022-06-11 COVID-19 VACCINE (#1) [facility] Test 02:09:30 [code = COVID-19 VACCINE (#1)] Future Scheduled 2022-06-11 Pneumococcal Vaccine: [facility] Test 02:09:30 Pediatrics (0 to 5 Years) and At-Risk Patients (6 to 64 Years) (1 - PCV) [code = Pneumococcal Vaccine: Pediatrics (0 to 5 Years) and At-Risk Patients (6 to 64 Years) (1 - PCV)] Future Scheduled 2022-06-11 Hepatitis C screening [facility] Test 02:09:30 (procedure) [code = 139576474] Future Scheduled 2022-06-11 Screening for [facility] Test 02:09:30 malignant neoplasm of cervix (procedure) [code = 698139852] Future Scheduled 2022-06-11 INFLUENZA VACCINE Method [facility] Test 02:09:30 [code = INFLUENZA VACCINE] Future Scheduled 2022-06-11 HEPATITIS B VACCINES Met [facility] Test 02:09:30 (1 of 3 - 3-dose series) [code = HEPATITIS B VACCINES (1 of 3 - 3-dose series)] Future Scheduled 2022-06-11 COVID-19 VACCINE (#1) [facility] Test 02:09:30 [code = COVID-19 VACCINE (#1)] Future Scheduled 2022-06-11 Pneumococcal Vaccine: [facility] Test 02:09:30 Pediatrics (0 to 5 Years) and At-Risk Patients (6 to 64 Years) (1 - PCV) [code = Pneumococcal Vaccine: Pediatrics (0 to 5 Years) and At-Risk Patients (6 to 64 Years) (1 - PCV)] Future Scheduled 2022-06-11 Hepatitis C screening [facility] Test 02:09:30 (procedure) [code = 226470014] Future Scheduled 2022-06-11 Screening for [facility] Test 02:09:30 malignant neoplasm of cervix (procedure) [code = 346663635] Future Scheduled 2022-06-11 INFLUENZA VACCINE Method [facility] Test 02:09:30 [code = INFLUENZA VACCINE] Future Scheduled 2022-06-11 HEPATITIS B VACCINES Met [facility] Test 02:09:30 (1 of 3 - 3-dose series) [code = HEPATITIS B VACCINES (1 of 3 - 3-dose series)] Future Scheduled 2022-06-11 COVID-19 VACCINE (#1) [facility] Test 02:09:30 [code = COVID-19 VACCINE (#1)] Future Scheduled 2022-06-11 Pneumococcal Vaccine: [facility] Test 02:09:30 Pediatrics (0 to 5 Years) and At-Risk Patients (6 to 64 Years) (1 - PCV) [code = Pneumococcal Vaccine: Pediatrics (0 to 5 Years) and At-Risk Patients (6 to 64 Years) (1 - PCV)] Future Scheduled 2022-06-11 Hepatitis C screening [facility] Test 02:09:30 (procedure) [code = 463901942] Future Scheduled 2022-06-11 Screening for [facility] Test 02:09:30 malignant neoplasm of cervix (procedure) [code = 636300163] Future Scheduled 2022-06-11 INFLUENZA VACCINE Method [facility] Test 02:09:30 [code = INFLUENZA VACCINE] Future Scheduled 2022-06-11 HEPATITIS B VACCINES Met [facility] Test 02:09:30 (1 of 3 - 3-dose series) [code = HEPATITIS B VACCINES (1 of 3 - 3-dose series)] Future Scheduled 2022-06-11 COVID-19 VACCINE (#1) [facility] Test 02:09:30 [code = COVID-19 VACCINE (#1)] Future Scheduled 2022-06-11 Pneumococcal Vaccine: [facility] Test 02:09:30 Pediatrics (0 to 5 Years) and At-Risk Patients (6 to 64 Years) (1 - PCV) [code = Pneumococcal Vaccine: Pediatrics (0 to 5 Years) and At-Risk Patients (6 to 64 Years) (1 - PCV)] Future Scheduled 2022-06-11 Hepatitis C screening [facility] Test 02:09:30 (procedure) [code = 299127308] Future Scheduled 2022-06-11 Screening for [facility] Test 02:09:30 malignant neoplasm of cervix (procedure) [code = 485739835] Future Scheduled 2022-06-11 INFLUENZA VACCINE Method [facility] Test 02:09:30 [code = INFLUENZA VACCINE] Future Scheduled 2022-06-01 HEPATITIS B VACCINES Met [facility] Test 16:17:59 (1 of 3 - 3-dose series) [code = HEPATITIS B VACCINES (1 of 3 - 3-dose series)] Future Scheduled 2022-06-01 COVID-19 VACCINE (#1) [facility] Test 16:17:59 [code = COVID-19 VACCINE (#1)] Future Scheduled 2022-06-01 Pneumococcal Vaccine: [facility] Test 16:17:59 Pediatrics (0 to 5 Years) and At-Risk Patients (6 to 64 Years) (1 - PCV) [code = Pneumococcal Vaccine: Pediatrics (0 to 5 Years) and At-Risk Patients (6 to 64 Years) (1 - PCV)] Future Scheduled 2022-06-01 Hepatitis C screening [facility] Test 16:17:59 (procedure) [code = 385304612] Future Scheduled 2022-06-01 Screening for [facility] Test 16:17:59 malignant neoplasm of cervix (procedure) [code = 543809431] Future Scheduled 2022-06-01 INFLUENZA VACCINE Method [facility] Test 16:17:59 [code = INFLUENZA VACCINE] Future Scheduled 2022-04-25 HEPATITIS B VACCINES Met [facility] Test 12:43:16 (1 of 3 - 3-dose series) [code = HEPATITIS B VACCINES (1 of 3 - 3-dose series)] Future Scheduled 2022-04-25 COVID-19 VACCINE (#1) [facility] Test 12:43:16 [code = COVID-19 VACCINE (#1)] Future Scheduled 2022-04-25 Pneumococcal Vaccine: [facility] Test 12:43:16 Pediatrics (0 to 5 Years) and At-Risk Patients (6 to 64 Years) (1 - PCV) [code = Pneumococcal Vaccine: Pediatrics (0 to 5 Years) and At-Risk Patients (6 to 64 Years) (1 - PCV)] Future Scheduled 2022-04-25 Hepatitis C screening [facility] Test 12:43:16 (procedure) [code = 363878612] Future Scheduled 2022-04-25 Screening for [facility] Test 12:43:16 malignant neoplasm of cervix (procedure) [code = 160189373] Future Scheduled 2022-04-25 INFLUENZA VACCINE Method [facility] Test 12:43:16 [code = INFLUENZA VACCINE] Future Scheduled 2022-02-27 HEPATITIS B VACCINES Met [facility] Test 05:24:42 (1 of 3 - 3-dose series) [code = HEPATITIS B VACCINES (1 of 3 - 3-dose series)] Future Scheduled 2022-02-27 COVID-19 VACCINE (#1) [facility] Test 05:24:42 [code = COVID-19 VACCINE (#1)] Future Scheduled 2022-02-27 Pneumococcal Vaccine: [facility] Test 05:24:42 Pediatrics (0 to 5 Years) and At-Risk Patients (6 to 64 Years) (1 - PCV) [code = Pneumococcal Vaccine: Pediatrics (0 to 5 Years) and At-Risk Patients (6 to 64 Years) (1 - PCV)] Future Scheduled 2022-02-27 Hepatitis C screening [facility] Test 05:24:42 (procedure) [code = 373867875] Future Scheduled 2022-02-27 Screening for [facility] Test 05:24:42 malignant neoplasm of cervix (procedure) [code = 876376155] Future Scheduled 2022-02-27 INFLUENZA VACCINE Method [facility] Test 05:24:42 [code = INFLUENZA VACCINE] Future Scheduled 2022-02-27 HEPATITIS B VACCINES Met [facility] Test 05:24:42 (1 of 3 - 3-dose series) [code = HEPATITIS B VACCINES (1 of 3 - 3-dose series)] Future Scheduled 2022-02-27 COVID-19 VACCINE (#1) [facility] Test 05:24:42 [code = COVID-19 VACCINE (#1)] Future Scheduled 2022-02-27 Pneumococcal Vaccine: [facility] Test 05:24:42 Pediatrics (0 to 5 Years) and At-Risk Patients (6 to 64 Years) (1 - PCV) [code = Pneumococcal Vaccine: Pediatrics (0 to 5 Years) and At-Risk Patients (6 to 64 Years) (1 - PCV)] Future Scheduled 2022-02-27 Hepatitis C screening [facility] Test 05:24:42 (procedure) [code = 063005826] Future Scheduled 2022-02-27 Screening for [facility] Test 05:24:42 malignant neoplasm of cervix (procedure) [code = 877551126] Future Scheduled 2022-02-27 INFLUENZA VACCINE Method [facility] Test 05:24:42 [code = INFLUENZA VACCINE] Future Scheduled 2022-02-27 HEPATITIS B VACCINES Met [facility] Test 05:24:42 (1 of 3 - 3-dose series) [code = HEPATITIS B VACCINES (1 of 3 - 3-dose series)] Future Scheduled 2022-02-27 COVID-19 VACCINE (#1) [facility] Test 05:24:42 [code = COVID-19 VACCINE (#1)] Future Scheduled 2022-02-27 Pneumococcal Vaccine: [facility] Test 05:24:42 Pediatrics (0 to 5 Years) and At-Risk Patients (6 to 64 Years) (1 - PCV) [code = Pneumococcal Vaccine: Pediatrics (0 to 5 Years) and At-Risk Patients (6 to 64 Years) (1 - PCV)] Future Scheduled 2022-02-27 Hepatitis C screening [facility] Test 05:24:42 (procedure) [code = 051210162] Future Scheduled 2022-02-27 Screening for [facility] Test 05:24:42 malignant neoplasm of cervix (procedure) [code = 755563030] Future Scheduled 2022-02-27 INFLUENZA VACCINE Method [facility] Test 05:24:42 [code = INFLUENZA VACCINE] Future Scheduled 2022-02-27 HEPATITIS B VACCINES Met [facility] Test 05:24:42 (1 of 3 - 3-dose series) [code = HEPATITIS B VACCINES (1 of 3 - 3-dose series)] Future Scheduled 2022-02-27 COVID-19 VACCINE (#1) [facility] Test 05:24:42 [code = COVID-19 VACCINE (#1)] Future Scheduled 2022-02-27 Pneumococcal Vaccine: [facility] Test 05:24:42 Pediatrics (0 to 5 Years) and At-Risk Patients (6 to 64 Years) (1 - PCV) [code = Pneumococcal Vaccine: Pediatrics (0 to 5 Years) and At-Risk Patients (6 to 64 Years) (1 - PCV)] Future Scheduled 2022-02-27 Hepatitis C screening [facility] Test 05:24:42 (procedure) [code = 377240818] Future Scheduled 2022-02-27 Screening for [facility] Test 05:24:42 malignant neoplasm of cervix (procedure) [code = 755669292] Future Scheduled 2022-02-27 INFLUENZA VACCINE Method [facility] Test 05:24:42 [code = INFLUENZA VACCINE] Future Scheduled 2022-02-27 HEPATITIS B VACCINES Met [facility] Test 05:24:42 (1 of 3 - 3-dose series) [code = HEPATITIS B VACCINES (1 of 3 - 3-dose series)] Future Scheduled 2022-02-27 COVID-19 VACCINE (#1) [facility] Test 05:24:42 [code = COVID-19 VACCINE (#1)] Future Scheduled 2022-02-27 Pneumococcal Vaccine: [facility] Test 05:24:42 Pediatrics (0 to 5 Years) and At-Risk Patients (6 to 64 Years) (1 - PCV) [code = Pneumococcal Vaccine: Pediatrics (0 to 5 Years) and At-Risk Patients (6 to 64 Years) (1 - PCV)] Future Scheduled 2022-02-27 Hepatitis C screening [facility] Test 05:24:42 (procedure) [code = 559360011] Future Scheduled 2022-02-27 Screening for [facility] Test 05:24:42 malignant neoplasm of cervix (procedure) [code = 953821382] Future Scheduled 2022-02-27 INFLUENZA VACCINE Method [facility] Test 05:24:42 [code = INFLUENZA VACCINE] Future Scheduled 2022-02-27 HEPATITIS B VACCINES Met [facility] Test 05:24:42 (1 of 3 - 3-dose series) [code = HEPATITIS B VACCINES (1 of 3 - 3-dose series)] Future Scheduled 2022-02-27 COVID-19 VACCINE (#1) [facility] Test 05:24:42 [code = COVID-19 VACCINE (#1)] Future Scheduled 2022-02-27 Pneumococcal Vaccine: [facility] Test 05:24:42 Pediatrics (0 to 5 Years) and At-Risk Patients (6 to 64 Years) (1 - PCV) [code = Pneumococcal Vaccine: Pediatrics (0 to 5 Years) and At-Risk Patients (6 to 64 Years) (1 - PCV)] Future Scheduled 2022-02-27 Hepatitis C screening [facility] Test 05:24:42 (procedure) [code = 485105414] Future Scheduled 2022-02-27 Screening for [facility] Test 05:24:42 malignant neoplasm of cervix (procedure) [code = 398733823] Future Scheduled 2022-02-27 INFLUENZA VACCINE Method [facility] Test 05:24:42 [code = INFLUENZA VACCINE] Future Scheduled 2022-02-27 HEPATITIS B VACCINES Met [facility] Test 05:24:42 (1 of 3 - 3-dose series) [code = HEPATITIS B VACCINES (1 of 3 - 3-dose series)] Future Scheduled 2022-02-27 COVID-19 VACCINE (#1) [facility] Test 05:24:42 [code = COVID-19 VACCINE (#1)] Future Scheduled 2022-02-27 Pneumococcal Vaccine: [facility] Test 05:24:42 Pediatrics (0 to 5 Years) and At-Risk Patients (6 to 64 Years) (1 - PCV) [code = Pneumococcal Vaccine: Pediatrics (0 to 5 Years) and At-Risk Patients (6 to 64 Years) (1 - PCV)] Future Scheduled 2022-02-27 Hepatitis C screening [facility] Test 05:24:42 (procedure) [code = 454182185] Future Scheduled 2022-02-27 Screening for [facility] Test 05:24:42 malignant neoplasm of cervix (procedure) [code = 800937587] Future Scheduled 2022-02-27 INFLUENZA VACCINE Method [facility] Test 05:24:42 [code = INFLUENZA VACCINE] Future Scheduled 2022-02-27 HEPATITIS B VACCINES Met [facility] Test 05:24:42 (1 of 3 - 3-dose series) [code = HEPATITIS B VACCINES (1 of 3 - 3-dose series)] Future Scheduled 2022-02-27 COVID-19 VACCINE (#1) [facility] Test 05:24:42 [code = COVID-19 VACCINE (#1)] Future Scheduled 2022-02-27 Pneumococcal Vaccine: [facility] Test 05:24:42 Pediatrics (0 to 5 Years) and At-Risk Patients (6 to 64 Years) (1 - PCV) [code = Pneumococcal Vaccine: Pediatrics (0 to 5 Years) and At-Risk Patients (6 to 64 Years) (1 - PCV)] Future Scheduled 2022-02-27 Hepatitis C screening [facility] Test 05:24:42 (procedure) [code = 744313962] Future Scheduled 2022-02-27 Screening for [facility] Test 05:24:42 malignant neoplasm of cervix (procedure) [code = 484443392] Future Scheduled 2022-02-27 INFLU[facility]ZA VACCINE [facility] Test 05:24:42 [code = INFLUENZA VACCINE] Future Scheduled 2021-07-22 COVID-19 VACCINE (1) Met [facility] Test 13:11:04 [code = COVID-19 VACCINE (1)] Future Scheduled 2021-07-22 Hepatitis C screening [facility] Test 13:11:04 (procedure) [code = 314619409] Future Scheduled 2021-07-22 Screening for [facility] Test 13:11:04 malignant neoplasm of cervix (procedure) [code = 039573587] Future Scheduled 2021-07-22 INFLUENZA VACCINE Method [facility] Test 13:11:04 [code = INFLUENZA VACCINE] Encounters Start End Encounter Admission Attending Care Care Encounter Source Date/Time Date/Time Type Type Clinicians Facility Department ID 2022-08-28 Outpatient [facility] [id number] [place] 10:54:07 [id number] [facility] 2022-04-29 Outpatient [facility] [id number] [place] 09:02:27 [id number] [facility] 2022-04-28 Outpatient [facility] [id number] [place] 12:17:07 [id number] [facility] 2021-12-29 Outpatient [facility] [id number] [place] 11:56:31 [id number] [facility] 2021-12-19 Outpatient [facility] [id number] [place] 14:05:12 [id number] [facility] 2021-12-12 Outpatient [facility] [id number] [place] 12:11:07 [id number] [facility] 2021-12-05 Outpatient [facility] [id number] [place] 20:09:51 [id number] [facility] 2021-10-28 Outpatient [facility] [id number] [place] 17:04:22 [id number] [facility] 2021-07-22 Outpatient nullFlavo [facility] [id number] Memoria 00:10:30 r Medical 05 l [facility] 2021-07-22 Preadmit nullFlavo [id number] Memoria 00:10:30 r [facility] 68 [facility] 2021-07-22 Outpatient nullFlavo [facility] [id number] Memoria 00:10:30 r [facility] 06 [facility] 2021-04-22 Emergency [facility] [id number] Univers 02:13:03 ity [facility] 2021-04-18 Emergency [facility] [id number] [facility]17 Emergency [facility] [id number] Univers 17:46:08 [facility] 2022-10-24 2022-10-24 Outpatient Daniels_b GAMALIEL RUSSELLG [id number] [facility]:00:00 00:00:00 [facility] 2022-08-28 2022-08-28 Outpatient Daniels_b DREWG DREWG [id number] [facility] 00:00:00 00:00:00 0310 [facility] 2022-08-28 2022-08-28 Outpatient Daniels_b DMG DREWG [id number] -2022 [facility] 00:00:00 00:00:00 0315 [facility] 2022-04-09 2022-04-09 Outpatient Nodal_J DREWG DREWG [id number] [facility] 00:00:00 00:00:00 1020 [facility] 2022-01-02 2022-01-02 Outpatient Deshazo_T DMG DREWG [id number] -2021 [facility] 03:37:00 03:37:00 0715 [facility] 2021-12-15 2021-12-15 Outpatient [facility] [id number] [place] 08:00:00 08:00:00 [facility] 2021-12-02 2021-12-02 Travel 1.2.840.1 [id number] Methodi 00:00:00 00:00:[address] 3.430.2.7 0.2.7.3.698 Ho spita .3.739401 084.8 l .8 2021-11-13 2021-11-13 Transcribe Patience, 1.2.840.1 [id number] Methodi 00:00:00 00:00:00 Orders Jose Miguel Hearn 46617.1.[address] 3.430.2.7 Hospit a .3.559410 l .8 2021-11-05 2021-11-05 [id number] 12:00:00 12:00:00 0518 [facility] 2021-10-29 2021-10-29 Telephone Rosy, 1.2.840.1 [id number] Methodi 00:00:00 00:00:[address] Mohamed 3.430.2.7 Hospit a .3.597061 l .8 2021-08-20 2021-08-20 [facility] [id number] -2021 [facility] 12:30:00 12:30:00 0302 [facility] 2021-07-08 2021-07-08 Office Ann, 1.2.840.1 [id number] Methodi 13:00:00 14:25:36 Visit Bessie 85299.1.[address] [place] 3.430.2.7 Hosp jo-ann .3.649029 l .8 2021-07-08 2021-07-08 Telephone Anthony, 1.2.840.1 [id number] Methodi 00:00:00 00:00:[address] 3.430.2.7 Hospit a .3.557505 l .8 2021-07-08 2021-07-08 Travel 1.2.840.1 1.2.205.421 [id number] Methodi 00:00:00 00:00:[address] 3.430.2.7 0.2.7.3.698 Ho spita .3.574734 084.8 l .8 2021-07-03 2021-07-03 CAV Melany 2.16.840. 2.16.840.1. CLAC [id number] [facility] 19:00:00 20:00:00 Vladimir 1.722120. 093390.4.6. 467 Medical 4.6.44203 [id number] 2021-07-03 2021-07-03 Telephone Seth 1.2.840.1 [id number] Methodi 00:00:00 00:00:[address] [place] 3.430.2.7 Hosp jo-ann .3.795946 l .8 2021-06-24 2021-06-24 Outpatient Deshazo_T [facility] [id number] -2021 [facility] 05:31:00 05:31:00 0104 Medica l Group 2021-06-23 2021-06-23 Telephone Anthony 1.2.840.1 [id number] Methodi 00:00:00 00:00:[address] 3.430.2.7 Hospit a .3.861350 l .8 2021-06-04 2021-06-18 [facility] 1.2.840.1 [id number] Methodi 18:20:00 18:13:00 Rachel Sky 83272.1.[address] Nagel, Holden Ramírez 3.430.2.7 Hospita Shanda Shahid .3.063517 l Ullah, Omad .8 2021-06-16 2021-06-16 Anesthesia Yousif, 1.2.840.1 [id number] Methodi 23:59:59 23:59:59 Event Alesia Coelho 18994.1.[address] 3.430.2.7 Hospit a .3.420574 l .8 2021-06-16 2021-06-16 Surgery Joe, 1.2.840.1 [id number] Methodi 13:30:00 17:45:[address] Joe-Hs 3.430.2.7 Hosp jo-ann .3.030246 l .8 2021-06-16 2021-06-16 Anesthesia Jose Carlos, 1.2.840.1 [id number] Methodi 15:19:00 17:19:00 Event Sethlachelleayo 61014.1.1 [address] t V. 3.430.2.7 Hospit a .3.656660 l .8 2021-06-10 2021-06-10 Surgery Juwan You 1.2.840.1 [id number] Methodi 08:00:00 10:30:[address] 3.430.2.7 Hospit a .3.517935 l .8 2021-06-10 2021-06-10 Anesthesia Doc, 1.2.840.1 [id number] 885 [id number] Methodi 08:26:00 09:40:00 Event Sofi 47681.1.[address] Marquita 3.430.2.7 Hosp jo-ann .3.413427 l .8 2021-06-09 2021-06-09 Prep for Robert, 1.2.840.1 [id number] Methodi 00:00:00 00:00:00 Surgery Gayle 03152.1.[address] 3.430.2.7 Hospit a .3.878713 l .8 2021-06-09 2021-06-09 Prep for Robert, 1.2.840.1 [id number] 801 [id number] Methodi 00:00:00 00:00:00 Surgery Gayle 65062.1.[address] 3.430.2.7 Hospit a .3.305937 l .8 2021-06-05 2021-06-05 Anesthesia Frankie Chowdhury 1.2.840.1 [id number] Methodi 10:16:00 11:41:00 Event Chandler Silverman 29782.1.[address] 3.430.2.7 Hospit a .3.336840 l .8 2021-06-05 2021-06-05 Surgery Juwan You 1.2.840.1 [id number] 40340 91978 Methodi 09:30:00 11:05:[address] 3.430.2.7 Hospit a .3.778664 l .8 2021-06-03 2021-06-03 Prep for Anthony, 1.2.840.1 [id number] 39503 Methodi 00:00:00 00:00:00 Surgery Forrest 11717.1.[address] 3.430.2.7 Hospit a .3.627729 l .8 2021-06-03 2021-06-03 Telephone Ureña, 1.2.840.1 [id number] 738 [id number] Methodi 00:00:00 00:00:00 Crysandrijovita 17647.1.1 218 s t 3.430.2.7 Hospit a .3.861239 l .8 2021-05-28 2021-05-28 Outpatient Adams_R DMG DMG 41006-1 021 Devoted 05:00:00 05:00:00 1208 Medica l Group 2021-05-27 2021-05-27 Patient Tam, 1.2.840.1 [id number] Methodi 00:00:00 00:00:00 Outreach Maria M 66962.1.[address] 3.430.2.7 Hospit a .3.637757 l .8 2021-05-27 2021-05-27 Travel 1.2.840.1 1.2.828.289 5462 567447 Methodi 00:00:00 00:00:[address] 3.430.2.7 0.2.7.3.698 Ho spita .3.995868 084.8 l .8 2021-05-27 2021-05-27 Orders Boles, 1.2.840.1 [id number] 2099 383960 Methodi 00:00:00 00:00:00 Only Anila 04421.1.[address] 3.430.2.7 Hospit a .3.256327 l .8 2021-05-26 2021-05-26 Outpatient Adams[facility]R [facility] 47386-3 021 [facility] 03:30:00 03:30:00 1206 Medica l Group 2021-05-26 2021-05-26 Telephone Anthony, 1.2.840.1 [id number] 2099 [id number] Methodi 00:00:00 00:00:[address] 3.430.2.7 Hospit a .3.065161 l .8 2021-05-19 2021-05-25 Hospital Juwan You 1.2.840.1 [id number] 2099 011664 Methodi 06:00:00 15:59:00 Encounter Tom Barber 56134.1.[address] Nadeeme, Marilu Arvin 3.430.2.7 Hospita .3.907048 l .8 2021-05-21 2021-05-21 Outpatient [facility] 26927-6 021 Devoted 03:30:00 03:30:00 1201 Medica l Group 2021-05-19 2021-05-19 Anesthesia Adam, 1.2.840.1 [id number] Methodi 18:45:00 20:31:00 Event Sukhjinder 13071.1.[address] Kendall 3.430.2.7 Hospit a .3.315371 l .8 2021-05-19 2021-05-19 Surgery Juwan You 1.2.840.1 [id number] Methodi 18:50:00 19:55:[address] 3.430.2.7 Hospit a .3.545390 l .8 2021-05-19 2021-05-19 Anesthesia Sukhjinder Medina 1.2.840.1 [id number] Methodi 12:00:00 15:14:00 Event Hanane Ledezma 16347.1.[address] 3.430.2.7 Hospit a .3.791313 l .8 2021-05-19 2021-05-19 Surgery Juwan You 1.2.840.1 [id number] 86304 Methodi 12:05:00 14:45:[address] 3.430.2.7 Hospit a .3.042248 l .8 2021-05-19 2021-05-19 Travel 1.2.840.1 1.2.996.546 8384 414253 Methodi 00:00:00 00:00:[address] 3.430.2.7 0.2.7.3.698 Ho spita .3.235417 084.8 l .8 2021-05-14 2021-05-14 Telephone Corin, 1.2.840.1 [id number] 21 [id number] Methodi 00:00:00 00:00:[address] 3.430.2.7 Hospit a .3.413703 l .8 2021-05-14 2021-05-14 Prep for Anthony, 1.2.840.1 [id number] 39429 Methodi 00:00:00 00:00:00 Surgery Forrest 97802.1.[address] 3.430.2.7 Hospit a .3.232772 l .8 2021-05-13 2021-05-13 Orders Doctor JOANNA 1.2.840.114 [id number] Univers 00:00:00 00:00:00 Only Unassigned, MAGDALENO 350.1.13.10 ity of [place] [facility] 4.2.7.2.686 Baljinder as [phone] [facility] 009 Branch 2021-05-12 2021-05-12 Office KenyattaTory 1.2.840.1 [id number] 84 Methodi 09:00:00 09:32:[address] 3.430.2.7 Hospit a .3.496170 l .8 2021-05-12 2021-05-12 Outpatient KENYATTA JUWAN [facility] [id number] 9684 [place] 00:00:00 00:00:[address] 2021-05-12 2021-05-12 Telephone Anthony, 1.2.840.1 [id number] 2099 153748 Methodi 00:00:00 00:00:[address] 3.430.2.7 Hospit a .3.622927 l .8 2021-05-12 2021-05-12 Travel 1.2.840.1 1.2.634.345 3315 476526 Methodi 00:00:00 00:00:[address] 3.430.2.7 0.2.7.3.698 Ho spita .3.942393 084.8 l .8 2021-05-08 2021-05-08 Orders Anthony, 1.2.840.1 [id number] 2765 Methodi 00:00:00 00:00:00 Only Forrest 67081.1.[address] 3.430.2.7 Hospit a .3.035289 l .8 2021-05-08 2021-05-08 Telephone Boles, 1.2.840.1 [id number] Methodi 00:00:00 00:00:[address] 3.430.2.7 Hospit a .3.070195 l .8 2021-05-05 2021-05-05 Office Juwan You 1.2.840.1 [id number] 65762 Methodi 14:00:00 15:41:[address] 3.430.2.7 Hospit a .3.806879 l .8 2021-05-05 2021-05-05 Travel 1.2.840.1 1.2.257.316 2178 670395 Methodi 00:00:00 00:00:[address] 3.430.2.7 0.2.7.3.698 Ho spita .3.307625 084.8 l .8 2021-05-01 2021-05-01 Telephone Diaz, 1.2.840.1 [id number] 2100 409462 Methodi 00:00:00 00:00:[address] Diaz-Hsi 3.430.2.7 Hosp jo-ann .3.569586 l .8 2021-04-08 2021-04-08 Outpatient Eduin BHAT [facility] [id number] 799 Univers 09:00:00 09:00:00 MONA ity of [facility] 2021-03-24 2021-03-24 Transition Misha Garcia 1.2.840.114 878 89463 Univers 00:00:00 00:00:00 of Care Missy Guzman 350.1.13.10 it y of [place] [phone] [place] [address] Branch 2021-03-19 2021-03-21 Hospital Jimena Easton 1.2.840.1 1007 790104 [id number] Univers 08:24:00 23:08:00 Encounter Eze Dias 60043.1.1 ity of [place] 3.104.2.7 [place] .3.671538 Medica l .8 Branch 2021-03-21 2021-03-21 Outpatient DMG [facility] 21890-9 021 Devoted 08:01:00 08:01:00 1001 Medica l Group 2021-03-19 2021-03-19 Orders Doctor 1.2.840.6 [id number] Univers 00:00:00 00:00:00 Only Unassigned, 86381.1.1 ity of [place] 3.104.2.7 [place] .3.484247 Medica l .8 Branch 2021-03-19 2021-03-19 Travel 1.2.840.1 1.2.572.987 9423 4264 Univers 00:00:00 00:00:00 97467.1.1 350.1.13.10 ity of 3.104.2.7 4.[place]7.3.698 [place] .3.586976 084.8 Medica l .8 Branch 2021-01-21 2021-01-29 Inpatient [facility] 42682 [id number] Memoria 15:50:00 20:14:[address] 2021-01-21 2021-01-29 Inpatient U AYDEE [facility] CAR 7512 [facility] 10:50:00 15:14:00 MONISHA 2021-01-21 2021-01-29 Outpatient Aydee, [facility] [id number] 10:50:00 15:14:00 Monisha 2021-01-24 2021-01-24 Outpatient [facility] [id number] 021 Devoted 08:00:00 08:00:00 0806 Medica l Group 2021-01-21 2021-01-21 Outpatient Aydee, [facility] [id number] 10:50:00 10:50:00 Monisha 12 2021-01-03 2021-01-03 Office DOMINIQUE Diane 1.2.840.114 [id number] 07:44:43 09:30:54 Visit Alexandr ALTMAN 350.1.13.58 MEDICAL 9.2.7.2.686 BUILDING 353.1670384 1 2021-01-03 2021-01-03 Office DOMINIQUE Diane 1.2.840.114 [id number] 903 OR 07:44:43 09:30:54 Visit Alexandr ALTMAN 350.1.13.58 H [facility] MEDICAL 9.2.7.2.686 BUILDING [id number] 1 2020-12-26 2020-12-26 Outpatient Eduin KIMBLE [facility] [id number] [facility] 10:30:00 10:30:00 SENDIL ity of [facility] 2020-12-24 2020-12-25 Outpatient nullFlavo Digestive 526 [id number] Memoria 15:32:00 04:59:00 r Disease 11 l Joyce Banuelos 2020-12-24 2020-12-24 Outpatient WRIGHT, [facility] 7511 [facility] 10:32:00 23:59:00 WONG 2020-12-24 2020-12-24 Outpatient Wright, [facility] [id number] 10:32:00 23:59:00 Wong Clark Madden 2020-11-12 2020-11-12 Outpatient R CARLOS [facility] [id number] Univers 09:00:00 09:00:00 WENTONG [facility] 2020-10-27 2020-10-27 [facility] 1.2.840.114 [id number] 98 00:00:00 00:00:00 (Out) Oz Lehman 350.1.13.10 [place] 4.2.7.2.686 Professio [phone] [address] 2020-10-27 2020-10-27 [facility] 1.2.840.114 [id number] 98 Univers 00:00:00 00:00:00 (Out) Oz Lehman 350.1.13.10 [place] of [place] [phone] Pr dic[address] 2020-10-24 2020-10-24 Orders Doctor JOANNA 1.2.840.114 [id number] 42 00:00:00 00:00:00 Only Unassigned, MAGDALENO 350.1.13.10 [place] [facility] 4.2.7.2.686 [phone] [facility] 2020-10-24 2020-10-24 Orders Doctor JOANNA 1.2.840.114 [id number] Univers 00:00:00 00:00:00 Only Unassigned, MAGDALENO 350.1.13.10 ity of [place] [facility] 4.2.7.2.686 Baljinder as [phone] [address] 2020-09-24 2020-09-24 Refalta Gonzalez [facility] 1.2.840.114 [id number] 24 00:00:00 00:00:00 [place] 350.1.13.10 [place] 4.2.7.2.686 Professio [phone] nal 220 [facility] 2020-09-24 2020-09-24 Refill [facility] 1.2.840.114 [id number] 24 Univers 00:00:00 00:00:00 Wentong [place] 350.1.13.10 i ty of [place] [phone] Me dical nal 220 [facility] 2020-09-09 2020-09-09 Patient [facility] 1.2.840.114 [id number] 44 00:00:00 00:00:00 Outreach Earl PRIMARY 350.1.13.10 Manuel CARE 4.2.7.2.686 PAVILLION [phone] 388 2020-09-09 2020-09-09 Patient [facility] 1.2.840.114 [id number] 44 Univers 00:00:00 00:00:00 Outreach Earl PRIMARY 350.1.13.10 i ty of [place] C[place] 4.2.7.2.[place] [phone] Me dical [address] [place] 2020-08-06 2020-08-06 [facility] [id number] Univers 14:30:00 14:30:00 WENTONG ity [facility] 2020-08-05 2020-08-05 Outpatient R BLACK [facility] [id number] Univers 13:30:00 13:30:00 DEJA ity [facility] 2020-07-23 2020-07-23 [facility] 1.2.840.114 [id number] Univers 13:39:08 23:59:00 Encounter Deja PRIMARY 350.1.13.10 ity of A CARE 4.2.7.2.[place] [phone] Pr dical 807 [place] 2020-07-23 2020-07-23 Office [facility] 1.2.871.825 2103 5976 13:31:20 14:37:36 Visit Deja PRIMARY 350.1.13.10 A CARE 4.2.7.2.686 PAVILLION [phone] 198 2020-07-23 2020-07-23 Office [facility] 1.2.836.135 6591 5976 [facility] 13:31:20 14:37:36 Visit Deja PRIMARY 350.1.13.10 ity of [place] 4.2.7.2.[place] [phone] [address] 2020-07-23 2020-07-23 Outpatient [facility] [id number] Univers 13:30:00 13:30:00 DEJA ity [facility] 2020-07-09 2020-07-09 Outpatient R [facility] [id number] Univers 09:00:00 09:00:00 ity [facility] 2020-07-03 2020-07-03 Telephone [facility] 1.2.625.196 6052 0697 [facility] 00:00:00 00:00:00 Oz Lehman 350.1.13.10 it[place] of [place] [phone] Pr dic[address] 2020-06-27 2020-06-27 [facility] 1.2.840.114 [id number] Univers 10:05:43 11:00:00 Visit Oz Lehman 350.1.13.10 ity of [place].2.[place] [phone] Pr dical nal 9 [facility] 2020-06-27 2020-06-27 [facility] 1.2.840.114 [id number] Univers 10:05:43 11:00:00 Visit Oz LEHMAN 350.1.13.10 ity of [place].2.7.2.[place] PROFESS[place] [phone] Pr dical NAL 059 [facility] 2020-06-27 2020-06-27 Outpatient R LAMIN, [facility] [id number] Univers 09:30:00 11:00:00 SENDIL ity [facility] 2020-06-27 2020-06-27 Out[facility] [id number] Univers 09:30:00 09:30:00 SENDIL ity [facility] 2020-05-28 2020-05-28 Laboratory Pc, Adc Echo Room 1 - [facility] 1 .2.840.114 [id number] Univers 08:01:11 08:48:06 Only Oz Kimble 350.1.13. 10 it[place] of [place] [phone] [facility] nal [address] [place] [address] 2020-05-28 2020-05-28 Outpatient R [facility] [id number] Univers 08:00:00 08:00:00 ity [facility] 2020-05-10 2020-05-10 Nurse Visit, Adc Nurse [facility] 1.2.840.1 14 [id number] Univers 08:31:07 08:43:46 Visit Oz Kimble 350.1.13. 10 ity of [place]2.[place] [phone] Pr dicma nal [address] [place] [address] 2020-05-10 2020-05-10 [facility] [id number] Univers 08:30:00 08:30:00 SENDIL ity [facility] 2020-05-07 2020-05-07 Outpatient R [facility] [id number] Univers 08:00:00 08:00:00 ity [facility] 2020-05-01 2020-05-01 Office [facility] 1.2.840.114 [id number] Univers 11:02:55 12:04:48 Visit Jose Luis Lehman 350.1.13.10 i ty of [place].2.[place] [phone] [facility] 220 [facility] 2020-05-01 2020-05-01 Outpatient [facility] [id number] Univers 10:30:00 10:30:00 WENTONG ity [facility] 2020-04-25 2020-04-25 Office [facility] 1.2.840.114 [id number] Univers 10:07:58 10:48:50 Visit Sendil TicoArnel Lehman 350.1.13.10 ity of [place].2.[place] [phone] Pr dical nal 059 [facility] 2020-04-25 2020-04-25 Outpatient [facility] [id number] Univers 10:00:00 10:00:00 SENDIL ity [facility] 2020-04-25 2020-04-25 Orders Doctor JOANNA 1.2.840.114 [id number] Univers 00:00:00 00:00:00 Only Unassigned, MAGDALENO 350.1.13.10 ity of [place] [facility] 4.2.7.2.686 Baljinder as [phone] [address] 2020-04-05 2020-04-05 Outpatient R [facility] [id number] Univers 09:30:00 09:30:00 SENDIL itcaron [facility] 2020-04-03 2020-04-03 Senior Adults Director 2, Adc Lab [facility] 1.2.840.114 [id number] Univers 13:13:38 13:28:38 Visit Mona Bhat 350.1.13.10 it[place] of [place] [phone] Pr dical nal 353 [facility] 2020-04-03 2020-04-03 Outpatient R CASEY, [facility] [id number] Univers 13:00:00 13:00:00 MONA itcaron [facility] 2020-04-02 2020-04-02 [facility] 1.2.840.114 [id number] Univers 09:00:33 09:54:22 Visit Mona Lehman 350.1.13.10 ity of [place].7.2.[place] [phone] Pr dical nal 134 [facility] 2020-04-02 2020-04-02 Outpatient [facility] [id number] Univers 08:30:00 08:30:00 MONA low [facility] 2020-04-02 2020-04-02 [facility] [id number] Univers 08:30:00 08:30:00 MONA low [facility] 2020-04-02 2020-04-02 Emergency [facility] 1.2.840.114 [id number] Univers 00:24:00 01:09:00 Marlin Lehman 350.1.13.10 i ty of [place].7.2.[place] [phone] [facility] 084 [place] 2020-04-02 2020-04-02 Orders Doctor JOANNA 1.2.840.114 [id number] Univers 00:00:00 00:00:00 Only Unassigned, MAGDALENO 350.1.13.10 ity of [place] [facility] 4.2.7.2.686 Baljinder as [phone] [facility] 009 [place] 2020-03-16 2020-03-16 Telephone [facility] 1.2.840.114 [id number] Univers 00:00:00 00:00:00 Yury Lehman 350.1.13.10 i ty of [place].2.[place] [phone] Pr dical nal 134 [facility] 2020-03-08 2020-03-08 Outpatient R [facility] [id number] Univers 11:00:00 11:00:00 LIMA currie [facility] 2020-03-07 2020-03-07 Telephone [facility] 1.2.840.114 [id number] Univers 00:00:00 00:00:00 Lima Lehman 350.1.13.10 ity of [place]2.[place] [phone] Pr dical [facility] 188 [facility] 2020-02-06 2020-02-06 Outpatient [facility] [id number] Univers 09:30:00 09:30:00 BRANDON low [facility] 2020-02-06 2020-02-06 Office [facility] 1.2.840.114 [id number] Univers 08:57:01 09:24:05 Visit Brandon Lehman 350.1.13.10 i ty of [place]2.7.2.[place] [facility] [phone] Pr dical nal 044 [facility] 2020-01-25 2020-01-31 Inpatient 1 Rei Waldron [facility] GPY [id number] 21:31:00 18:15:00 Rei Waldron [facility] 2020-01-24 2020-01-24 Outpatient Eduin BROOKS [facility] [id number] Univers 09:45:00 09:45:00 [facility] 2020-01-23 2020-01-23 Outpatient Eduin [facility] [id number] Univers 10:30:00 10:30:00 [facility] 2019-12-18 2019-12-18 Outpatient Eduin [facility] [id number] Univers 08:00:00 08:00:00 YISSEL [facility] 2019-12-04 2019-12-04 Outpatient Eduin [facility] [id number] Univers 14:15:00 14:15:00 BRANDON [facility] 2019-11-06 2019-11-06 Telemedici Tangela, [facility] 1.2.840.114 [id number] Univers 07:49:37 08:46:52 ne Visit Yissel Y 350.1.13.10 ity of [place] [facility] 4.2.7.2.686 [facility] [place] as BANK [phone] [facility] BLDG. 136 [place] 2019-11-06 2019-11-06 Outpatient Eduin [facility] [id number] Univers 08:00:00 08:00:00 YISSEL [facility] 2019-10-01 2019-10-01 Emergency [facility] 1.2.008.716 [id number] Univers 15:47:29 19:01:00 Stacie Lehman 350.1.13.10 i ty of [place] 4.2.7.2.686 [facility] [phone] [place] 528964 [place] 2019-09-05 2019-09-05 Outpatient R ERICSARAHYARPITA [facility] [id number] Univers 13:30:00 13:30:00 BRANDON ity [facility] 2019-08-28 2019-08-28 Outpatient R ZEKE RUVALCABA [facility] [id number] Univers 15:00:00 15:00:00 ity [facility] 2019-02-27 2019-02-27 Telephone [facility] 1.2.840.114 [id number] Univers 00:00:00 00:00:00 Adán T SPECIALTY 350.1.13.10 ity of CARE 4.2.7.2.686 [facility] AT [phone] [facility] 188 [facility] 2019-02-25 2019-02-25 Telephone [facility] 1.2.840.114 [id number] Univers 00:00:00 00:00:00 Adán T SPECIALTY 350.1.13.10 ity of CARE 4.2.7.2.686 [facility] s [place] AT [phone] [facility] 205 [facility] 2019-02-22 2019-02-22 [facility] Oz Kimble 1.2.8 40.114 [id number] Univers 09:19:22 23:59:00 Encounter Outpt-Josy, [facility] 350.1.13.10 ity of Hospital 4.2.7.2.686 Baljinder as [phone] [address] 2019-02-22 2019-02-22 [facility] 1.2.8 40.114 [id number] Univers 08:00:00 09:18:00 Encounter Outpt-Josy, [facility] 350.1.13.10 ity of Hospital 4.2.7.2.686 Baljinder as [phone] [address] 2019-02-17 2019-02-17 Office Puthenparam [facility] 1.2.840.114 [id number] Univers 13:09:08 13:54:39 Visit Gary gray [facility] 350.1.13.10 ity of E[place] 4.2.7.2.686 [facility] [place] [phone] [facility] [address] 2019-02-17 2019-02-17 Orders Doctor JOANNA 1.2.840.114 [id number] Univers 00:00:00 00:00:00 Only Unassigned, MAGDALENO 350.1.13.10 ity of [place] HOSPITAL 4.2.7.2.686 Baljinder as [phone] [facility] 009 [address] 2019-01-25 2019-01-25 Telephone Traci Kimble 1.2.992.221 [id number] Univers 00:00:00 00:00:00 Oz [place] 350.1.13.10 ity of Hospital 4.2.7.2.686 Baljinder as [phone] [facility] [address] 2019-01-25 2019-01-25 Telephone Traci Kimble 1.2.224.100 [id number] Univers 00:00:00 00:00:00 Oz [place] 350.1.13.10 ity of Hospital 4.2.7.2.686 Baljinder as [phone] [facility] [address] 2019-01-20 2019-01-20 Office [facility] 1.2.840.114 [id number] Univers 08:55:54 09:56:43 Visit Oz Lehman 350.1.13.10 it[place] of [place]2.[place] [phone] Pr dical nal 059 [address] [facility] 2019-01-14 2019-01-15 Emergency [place], TRAUMA 1.2.840.114 [id number] Univers 18:20:35 00:24:00 [facility] 350.1.13.10 [place] [phone] [facility] [address] 2019-01-13 2019-01-13 Office Digna [facility] 1.2.840.114 [id number] Univers 08:10:44 09:19:41 Visit Lima Lehman 350.1.13.10 [place] [phone] Pr dical nal [address] 2018-05-24 2018-05-24 Outpatient SARAHY DORADO, [facility] SLE[facility] [id number] [facility] 00:00:00 00:00:00 LIZYJANICE 2016-07-24 2016-07-30 Inpatient nullFlavo [facility] [id number] Memoria 02:04:00 16:20:[address] 2016-07-23 2016-07-30 Outpatient Yaquelin, [facility] [id number] 20:04:00 10:20:00 Luna 10 2016-06-10 2016-06-15 Inpatient nullFlavo [facility] [id number] Memoria 16:02:00 18:23:[address] 2016-06-10 2016-06-15 Outpatient Franck, [facility] [id number] 10:02:00 12:23:00 Joe Yan 09 2014-06-26 2014-06-[facility] [id number] Memoria 05:25:00 15:14:00 Emergency r [address] 2014-06-25 2014-06-26 Outpatient Ostermayer, 2.16.840. 2.16.840. 1. [id number] 23:25:00 09:14:00 Atul [id number]. 193835.3.61 08 Cem 3.615.0.1 5.0.812 43 7461-10-25 2013-04-15 Emergency [facility] [id number] Memoria 21:04:00 01:45:[address] 2013-04-14 2013-04-15 Outpatient 2.16.840. 2.16.840.1. 4 [id number] Memoria 21:04:00 01:45:00 1.075215. [id number] 07 l 3.615.0.1 5.0.101 Jake n [facility] 2013-04-14 2013-04-15 Outpatient 2.16.840. 2.16.840.1. 4 [id number] Memoria 21:04:00 01:45:00 [id number]. [id number] 07 l 3.615.0.1 5.0.101 Jake n 01 [facility] 2013-04-14 2013-04-15 Outpatient 2.16.840. 2.16.840.1. 4 [id number] Memoria 21:04:00 01:45:00 1.335215. 210715.3.61 07 l 3.615.0.1 5.0.101 Jake n 01 [facility] 2013-04-14 2013-04-15 Outpatient 2.16.840. 2.16.840.1. 4 [id number] Memoria 21:04:00 01:45:00 1.295461. [id number] 07 l 3.615.0.1 5.0.101 Jake n [facility] 2013-04-14 2013-04-15 Outpatient 2.16.840. 2.16.840.1. 4 [id number] Memoria 21:04:00 01:45:00 1.491042. 140439.3.61 07 l 3.615.0.1 5.0.101 Jake n [facility] 2012-03-14 2012-03-14 Emergency nullFlavo [id number] Memoria 16:32:00 22:39:[address] 2011-11-28 2011-11-30 OU nullFlavo [facility] [id number] Memoria 12:16:00 20:40:00 [facility] 03 [facility] 2011-09-18 2011-09-18 Emergency nullFlavo [facility] [id number] Memoria 08:23:00 13:34:00 [facility] 02 [facility] 2011-09-01 2011-09-09 Inpatient nullFlavo [facility] [id number] Memoria 01:40:00 15:00:00 [facility] 01 [facility] 2011-08-19 2011-08-23 Inpatient nullFlavo [facility] [id number] Memoria 14:25:00 15:28:[address] Results Test Description Test Time Test Comments Results Result Comments Source [employer] culture 2021-07-22 18:13:19 Test Item Value Reference Range Interpretation Comme nts [employer] culture isolate No growth after 6 weeks of Specimen InformationSpecimen (test code = 543-9) incubation. Source: DrainageSpecimen Site: Thigh: infected wound right thigh [facility]2022-02-01 18:13:19 Test Item Value Reference Range Interpretation Comments AFB culture No growth Specimen isolate (test after 6 weeks InformationSp ecimen code = 543-9) of Source: [place] geSpecimen incubation. Site: Thigh: in fected wound right [facility]2022-02-01 18:13:19 Test Item Value Reference Range Interpretation Comments AFB culture No growth Specimen isolate (test after 6 weeks InformationSp ecimen code = 543-9) of Source: [place] geSpecimen incubation. Site: Thigh: in fected wound right [facility]2022-02-01 18:13:19 Test Item Value Reference Range Interpretation Comments AFB culture No growth Specimen isolate (test after 6 weeks InformationSp ecimen code = 543-9) of Source: [place] geSpecimen incubation. Site: Thigh: in fected wound right [facility]2022-02-01 18:13:19 Test Item Value Reference Range Interpretation Comments AFB culture No growth Specimen isolate (test after 6 weeks InformationSp ecimen code = 543-9) of Source: [place] geSpecimen incubation. Site: Thigh: in fected wound right [facility]2022-02-01 18:13:19 Test Item Value Reference Range Interpretation Comments AFB culture No growth Specimen isolate (test after 6 weeks InformationSp ecimen code = 543-9) of Source: [place] geSpecimen incubation. Site: Thigh: in fected wound right [facility]2022-02-01 18:13:19 Test Item Value Reference Range Interpretation Comments AFB culture No growth Specimen isolate (test after 6 weeks InformationSp ecimen code = 543-9) of Source: [place] geSpecimen incubation. Site: Thigh: in fected wound right [facility]2022-02-01 18:13:19 Test Item Value Reference Range Interpretation Comments AFB culture No growth Specimen isolate (test after 6 weeks InformationSp ecimen code = 543-9) of Source: [place] geSpecimen incubation. Site: Thigh: in fected wound right [facility] [id number] 18:13:19 Test Item Value Reference Range Interpretation Comments AFB culture No growth Specimen isolate (test after 6 weeks InformationSp ecimen code = 543-9) of Source: [place] geSpecimen incubation. Site: Thigh: in fected wound right [facility] [id number] 18:13:19 Test Item Value Reference Range Interpretation Comments AFB culture No growth Specimen isolate (test after 6 weeks InformationSp ecimen code = 543-9) of Source: [place] geSpecimen incubation. Site: Thigh: in fected wound right [facility] [id number] 18:13:19 Test Item Value Reference Range Interpretation Comments AFB culture No growth Specimen isolate (test after 6 weeks InformationSp ecimen code = 543-9) of Source: [place] geSpecimen incubation. Site: Thigh: in fected wound right [facility] [id number] 18:15:13 Test Item Value Reference Range Interpretation [...] Source: TissueS pecimen incubation. Site: [facility]2022-01-25 18:15:13 Test Item Value [...] Source: TissueS pecimen incubation. Site: [facility]2022-01-25 18:15:13 Test Item Value Reference Range Interpretation Comments Fungus culture No growth Specimen isolate (test after 4 weeks InformationSp ecimen code = 1441) of Source: TissueS pecimen incubation. [facility] [id number] 18:15:13 Test Item Value Reference Range Interpretation Comments Fungus culture No growth Specimen isolate (test after 4 weeks InformationSp ecimen code = 1441) of Source: TissueS pecimen incubation. Site: [facility]2022-01-25 18:15:13 Test Item Value Reference Range Interpretation Comments Fungus culture No growth Specimen isolate (test after 4 weeks InformationSp ecimen code = 1441) of Source: TissueS pecimen incubation. Site: [facility]2022-01-25 18:15:13 Test Item Value Reference Range Interpretation Comments Fungus culture No growth Specimen isolate (test after 4 weeks InformationSp ecimen code = 1441) of Source: TissueS pecimen incubation. Site: [facility]2022-01-25 18:15:13 Test Item Value Reference Range Interpretation Comments Fungus culture No growth Specimen isolate (test after 4 weeks InformationSp ecimen code = 1441) of Source: TissueS pecimen incubation. Site: [facility]2022-01-25 18:15:13 Test Item Value Reference Range Interpretation Comments Fungus culture No growth Specimen isolate (test after 4 weeks InformationSp ecimen code = 1441) of Source: TissueS pecimen incubation. Site: [facility]2022-01-25 18:15:13 Test Item Value Reference Range Interpretation Comments Fungus culture No growth Specimen isolate (test after 4 weeks InformationSp ecimen code = 1441) of Source: TissueS pecimen incubation. Site: [facility]2022-01-25 18:15:13 Test Item Value Reference Range Interpretation Comments Fungus culture No growth Specimen isolate (test after 4 weeks InformationSp ecimen code = 1441) of Source: TissueS pecimen incubation. Site: [facility]2022-01-25 18:15:13 Test Item Value Reference Range Interpretation Comments Fungus culture No growth Specimen isolate (test after 4 weeks InformationSp ecimen code = 1441) of Source: TissueS pecimen incubation. Site: [facility]2022-01-01 14:31:13 Test Item Value Reference Range Interpretation Comments Anaerobic No anaerobic Specimen culture isolate organisms InformationS pecimen (test code = isolated. Source: TissueS pecimen 552) Site: [address]01-01 14:31:13 Test Item Value Reference Range Interpretation Comments Anaerobic No anaerobic Specimen culture isolate organisms InformationS pecimen (test code = isolated. Source: TissueS pecimen 552) Site: [place] [address]-01-01 14:31:13 Test Item Value Reference Range Interpretation Comments Anaerobic No anaerobic Specimen culture isolate organisms InformationS pecimen (test code = isolated. Source: TissueS pecimen 552) Site: [place] [address]-01-01 14:31:13 Test Item Value Reference Range Interpretation Comments Anaerobic No anaerobic Specimen culture isolate organisms InformationS pecimen (test code = isolated. Source: TissueS pecimen 552) Site: [place] [address]-01-01 14:31:13 Test Item Value Reference Range Interpretation Comments Anaerobic No anaerobic Specimen culture isolate organisms InformationS pecimen (test code = isolated. Source: TissueS pecimen 552) Site: [place] [address]86702-01-01 14:31:13 Test Item Value Reference Range Interpretation Comments Anaerobic No anaerobic Specimen culture isolate organisms InformationS pecimen (test code = isolated. Source: TissueS pecimen 552) Site: [place] 086702-01-01 14:31:13 Test Item Value Reference Range Interpretation Comments Anaerobic No anaerobic Specimen culture isolate organisms InformationS pecimen (test code = isolated. Source: TissueS pecimen 552) Site: [place] [address]86702-01-01 14:31:13 Test Item Value Reference Range Interpretation Comments Anaerobic No anaerobic Specimen culture isolate organisms InformationS pecimen (test code = isolated. Source: TissueS pecimen 552) Site: [place] [address]86702-01-01 14:31:13 Test Item Value Reference Range Interpretation Comments Anaerobic No anaerobic Specimen culture isolate organisms InformationS pecimen (test code = isolated. Source: TissueS pecimen 552) Site: [place] [address]86702-01-01 14:31:13 Test Item Value Reference Range Interpretation Comments Anaerobic No anaerobic Specimen culture isolate organisms InformationS pecimen (test code = isolated. Source: TissueS pecimen 552) Site: [place] [address]86702-01-01 14:31:13 Test Item Value Reference Range Interpretation Comments Anaerobic No anaerobic Specimen culture isolate organisms InformationS pecimen (test code = isolated. Source: TissueS pecimen 552) Site: [facility]2022-01-01 14:31:13 Test Item Value Reference Range Interpretation Comments Anaerobic No anaerobic Specimen culture isolate organisms InformationS pecimen (test code = isolated. Source: TissueS pecimen 552) Site: [facility]2022-01-01 14:31:13 Test Item Value Reference Range Interpretation Comments Anaerobic No anaerobic Specimen culture isolate organisms InformationS pecimen (test code = isolated. [facility] Site: [facility]2021-12-31 16:51:58 Test Item Value Reference Range Interpretation Comments Gram stain No WBC's or Specimen isolate (test organisms seen. Information Specimen code = 1469) Source: [facility] Site: [facility] [id number] 16:51:58 Test Item Value Reference Range Interpretation Comments Aerobic culture No growth Specimen isolate (test after 3 days. InformationSp ecimen code = 498) Source: [facility] Site: [facility] [id number] 16:51:58 Test Item Value Reference Range Interpretation Comments Fungus smear No fungi Specimen (test code = observed. InformationSpec imen Source: 1443) TissueSpecime Site: [facility] [id number] 16:51:58 Test Item Value Reference Range Interpretation Comments Gram stain No WBC's or Specimen isolate (test organisms seen. Information Specimen code = 1469) Source: [facility] Site: [facility] [id number] 16:51:58 Test Item Value Reference Range Interpretation Comments Aerobic culture No growth Specimen isolate (test after 3 days. InformationSp ecimen code = 498) Source: [facility] [id number] 16:51:58 Test Item Value Reference Range Interpretation Comments Fungus smear No fungi Specimen (test code = observed. InformationSpec imen Source: 1443) TissueSpecimen Site: [facility] [id number] 16:51:58 Test Item Value Reference Range Interpretation Comments Gram stain No WBC's or Specimen isolate (test organisms seen. Information Specimen code = 1469) Source: [facility] [id number] 16:51:58 Test Item Value Reference Range Interpretation Comments Aerobic culture No growth Specimen isolate (test after 3 days. InformationSp ecimen code = 498) Source: [facility] [id number] 16:51:58 Test Item Value Reference Range Interpretation Comments Fungus smear No fungi Specimen (test code = observed. InformationSpec imen [facility]: 1443) [facility] [id number] 16:51:58 Test Item Value Reference Range Interpretation Comments Gram stain No WBC's or Specimen isolate (test organisms seen. Information Specimen code = 1469) Source: [facility] [id number] 16:51:58 Test Item Value Reference Range Interpretation Comments Aerobic culture No growth Specimen isolate (test after 3 days. InformationSp ecimen code = 498) Source: [facility] [id number] 16:51:58 Test Item Value Reference Range Interpretation Comments Fungus smear No fungi Specimen (test code = observed. InformationSpec quitchenen Source: 1443) [facility] Site: [facility] [id number] 16:51:58 Test Item Value Reference Range Interpretation Comments Gram stain No WBC's or Specimen isolate (test organisms seen. Information Specimen code = 1469) Source: [facility] [id number] 16:51:58 Test Item Value Reference Range Interpretation Comments Aerobic culture No growth Specimen isolate (test after 3 days. InformationSp ecimen code = 498) Source: [facility] [id number] 16:51:58 Test Item Value Reference Range Interpretation Comments Fungus smear No fungi Specimen (test code = observed. InformationSpec imen Source: 1443) TissueSpecime Site: [facility] [id number] 16:51:58 Test Item Value Reference Range Interpretation Comments Gram stain No WBC's or Specimen isolate (test organisms seen. Information Specimen code = 1469) Source: [facility] [id number] 16:51:58 Test Item Value Reference Range Interpretation Comments Aerobic culture No growth Specimen isolate (test after 3 days. InformationSp ecimen code = 498) Source: [facility] [id number] 16:51:58 Test Item Value Reference Range Interpretation Comments Fungus smear No fungi Specimen (test code = observed. InformationSpec imen Source: 1443) TissueSpecime Site: [facility]2021-12-31 16:51:58 Test Item Value Reference Range Interpretation Comments Gram stain No WBC's or Specimen isolate (test organisms seen. Information Specimen code = 1469) Source: [facility] Site: [facility] [id number] 16:51:58 Test Item Value Reference Range Interpretation Comments Aerobic culture No growth Specimen isolate (test after 3 days. InformationSp ecimen code = 498) Source: [facility] Site: [facility] [id number] 16:51:58 Test Item Value Reference Range Interpretation Comments Fungus smear No fungi Specimen (test code = observed. InformationSpec imen Source: 1443) [facility] Site: [facility]2021-12-31 16:51:58 Test Item Value Reference Range Interpretation Comments Gram stain No WBC's or Specimen isolate (test organisms seen. Information Specimen code = 1469) Source: [facility] Site: [facility] [id number] 16:51:58 Test Item Value Reference Range Interpretation Comments Aerobic culture No growth Specimen isolate (test after 3 days. InformationSp ecimen code = 498) Source: [facility] Site: [facility] [id number] 16:51:58 Test Item Value Reference Range Interpretation Comments Fungus smear No fungi Specimen (test code = observed. InformationSpec imen [facility]: 1443) [facility] [id number] 16:51:58 Test Item Value Reference Range Interpretation Comments Gram stain No WBC's or Specimen isolate (test organisms seen. Information Specimen code = 1469) Source: [facility] [id number] 16:51:58 Test Item Value Reference Range Interpretation Comments Aerobic culture No growth Specimen isolate (test after 3 days. InformationSp ecimen code = 498) Source: [facility] Site: [facility] [id number] 16:51:58 Test Item Value Reference Range Interpretation Comments Fungus smear No fungi Specimen (test code = observed. InformationSpec imen Source: 1443) TissueSpecime Site: [facility] [id number] 16:51:58 Test Item Value Reference Range Interpretation Comments Gram stain No WBC's or Specimen isolate (test organisms seen. Information Specimen code = 1469) Source: [facility] Site: [facility] [id number] 16:51:58 Test Item Value Reference Range Interpretation Comments Aerobic culture No growth Specimen isolate (test after 3 days. InformationSp ecimen code = 498) Source: [facility] [id number] 16:51:58 Test Item Value Reference Range Interpretation Comments Fungus smear No fungi Specimen (test code = observed. InformationSpec imen Source: 1443) [facility]2021-12-31 16:51:58 Test Item Value Reference Range Interpretation Comments Gram stain No WBC's or Specimen isolate (test organisms seen. Information Specimen code = 1469) Source: [facility] Site: [facility] [id number] 16:51:58 Test Item Value Reference Range Interpretation Comments Aerobic culture No growth Specimen isolate (test after 3 days. InformationSp ecimen code = 498) Source: [facility] [id number] 16:51:58 Test Item Value Reference Range Interpretation Comments Fungus smear No fungi Specimen (test code = observed. InformationSpec imen Source: 1443) [facility] Site: [facility] [id number] 16:51:58 Test Item Value Reference Range Interpretation Comments Gram stain No WBC's or Specimen isolate (test organisms seen. Information Specimen code = 1469) [facility]: [facility] [id number] 16:51:58 Test Item Value Reference Range Interpretation Comments Aerobic culture No growth Specimen isolate (test after 3 days. InformationSp ecimen code = 498) [facility] [id number] 16:51:58 Test Item Value Reference Range Interpretation Comments Fungus smear No fungi Specimen (test code = observed. InformationSpec imen Source: 1443) TissueSpecimen [facility] [id number] 16:51:58 Test Item Value Reference Range Interpretation Comments Gram stain No WBC's or Specimen isolate (test organisms seen. Information Specimen code = 1469) Source: [facility] [id number] 16:51:58 Test Item Value Reference Range Interpretation Comments Aerobic culture No growth Specimen isolate (test after 3 days. InformationSp ecimen code = 498) Source: [facility] [id number] 16:51:58 Test Item Value Reference Range Interpretation Comments Fungus smear No fungi Specimen (test code = observed. InformationSpec imen Source: 1443) TissueSpecimen Site: [facility] qafetin1423-91-13 17:00:57 Test Item Value Reference Range Interpretation Comments POC glucose (test code 79 mg/dL 65-99 Opera tor Name: Eboni = [id number]) AmiDevice ID: [id number] [facility] [id number] 17:00:57 Test Item Value Reference Range Interpretation Comments POC glucose (test code 79 mg/dL 65-99 Opera tor Name: Eboni = 36763-4) AmiDevice ID: [id number] [facility] [id number] 17:00:57 Test Item Value Reference Range Interpretation Comments POC glucose (test code 79 mg/dL 65-99 Opera tor Name: Eboni = 72936-5) AmiDevice ID: [id number] [facility] [id number] 17:00:57 Test Item Value Reference Range Interpretation Comments POC glucose (test code 79 mg/dL 65-99 Opera tor Name: Eboni = 45145-0) AmiDevice ID: [id number] [facility] [id number] 17:00:57 Test Item Value Reference Range Interpretation Comments POC glucose (test code 79 mg/dL 65-99 Opera tor Name: Eboni = 16171-9) AmiDevice ID: [id number] [facility] [id number] 17:00:57 Test Item Value Reference Range Interpretation Comments POC glucose (test code 79 mg/dL 65-99 Opera tor Name: Eboni = 86277-9) AmiDevice ID: [id number] [facility] [id number] 17:00:57 Test Item Value Reference Range Interpretation Comments POC glucose (test code 79 mg/dL 65-99 Opera tor Name: Eboni = 36948-0) AmiDevice ID: [id number] [facility] [id number] 17:00:57 Test Item Value Reference Range Interpretation Comments POC glucose (test code 79 mg/dL 65-99 Opera tor Name: Eboni = 03287-4) AmiDevice ID: [id number] [facility] [id number] 17:00:57 Test Item Value Reference Range Interpretation Comments POC glucose (test code 79 mg/dL 65-99 Opera tor Name: Eboni = 44785-9) AmiDevice ID: [id number] [facility] [id number] 17:00:57 Test Item Value Reference Range Interpretation Comments POC glucose (test code 79 mg/dL 65-99 Opera tor Name: E[place]i = 54068-4) AmiDevice ID: [id number] [facility] [id number] 17:00:57 Test Item Value Reference Range Interpretation Comments POC glucose (test code 79 mg/dL 65-99 Opera tor Name: Eboni = 23483-0) AmiDevice ID: [id number] [facility] [id number] 17:00:57 Test Item Value Reference Range Interpretation Comments POC glucose (test code 79 mg/dL 65-99 Opera tor Name: Eboni = 04726-8) AmiDevice ID: [id number] [facility]2021-12-29 17:00:57 Test Item Value Reference Range Interpretation Comments POC glucose (test code 79 mg/dL 65-99 Opera tor Name: E[place]i = 32558-1) AmiDevice ID: [id number] [facility] , [id number] 20:46:00 Test Item Value Reference Range Interpretation Comments test urine, POC (test Negative code = 0252609) Internal QC (test code = 257) QC acceptable [facility] , [id number] 20:46:00 Test Item Value Reference Range Interpretation Comments test urine, POC (test Negative code = 5286692) Internal QC (test code = 257) QC acceptable [facility] , [id number] 20:46:00 Test Item Value Reference Range Interpretation Comments test urine, POC (test Negative code = 9577485) Internal QC (test code = 257) QC acceptable [facility] , [id number] 20:46:00 Test Item Value Reference Range Interpretation Comments test urine, POC (test Negative code = 4282345) Internal QC (test code = 257) QC acceptable [facility] , [id number] 20:46:00 Test Item Value Reference Range Interpretation Comments test urine, POC (test Negative code = 9946448) Internal QC (test code = 257) QC acceptable [facility] , [id number] 20:46:00 Test Item Value Reference Range Interpretation Comments test urine, POC (test Negative code = 4138875) Internal QC (test code = 257) QC acceptable [facility] , [id number] 20:46:00 Test Item Value Reference Range Interpretation Comments test urine, POC (test Negative code = 8717681) Internal QC (test code = 257) QC acceptable [facility] , [id number] 20:46:00 Test Item Value Reference Range Interpretation Comments test urine, POC (test Negative code = 0265606) Internal QC (test code = 257) QC acceptable [facility] , [id number] 20:46:00 Test Item Value Reference Range Interpretation Comments test urine, POC (test Negative code = 5857682) Internal QC (test code = 257) QC acceptable [facility] , [id number] 20:46:00 Test Item Value Reference Range Interpretation Comments test urine, POC (test Negative code = 2334448) Internal QC (test code = 257) QC acceptable [facility] , [id number] 20:46:00 Test Item Value Reference Range Interpretation Comments test urine, POC (test Negative code = 2702005) Internal QC (test code = 257) QC acceptable [facility] , [id number] 20:46:00 Test Item Value Reference Range Interpretation Comments test urine, POC (test Negative code = 6045708) Internal QC (test code = 257) QC acceptable [facility] , [id number] 20:46:00 Test Item Value Reference Range Interpretation Comments test urine, POC (test Negative code = 1442155) Internal QC (test code = 257) QC acceptable [address]2021-12-27 17:27:33 Test Item Value Reference Range Interpretation Comments Ventricular rate (test code = 253) Atrial rate (test code = 255) IN interval (test code = 266) QRSD interval [...] of 04-JUN-2021 18:19,-No significant change was found- [address]2021-12-27 17:27:33 Test Item Value Reference Range Interpretation Comments Ventricular rate (test code = 253) Atrial rate (test code = 255) IN interval (test code = 266) QRSD interval [...] of 04-JUN-2021 18:19,-No significant change was found- [address]2021-12-27 17:27:33 Test Item Value Reference Range Interpretation Comments Ventricular rate (test code = 253) Atrial rate (test code = 255) IN interval (test code = 266) QRSD interval [...] of 04-JUN-2021 18:19,-No significant change was found- [address]2021-12-27 17:27:33 Test Item Value Reference Range Interpretation Comments Ventricular rate (test code = 253) Atrial rate (test code = 255) IN interval (test code = 266) QRSD interval [...] of 04-JUN-2021 18:19,-No significant change was found- [address]2021-12-27 17:27:33 Test Item Value Reference Range Interpretation Comments Ventricular rate (test code = 253) Atrial rate (test code = 255) IN interval (test code = 266) QRSD interval [...] of 04-JUN-2021 18:19,-No significant change was found- [address]2021-12-27 17:27:33 Test Item Value Reference Range Interpretation Comments Ventricular rate (test code = 253) Atrial rate (test code = 255) IN interval (test code = 266) QRSD interval [...] of 04-JUN-2021 18:19,-No significant change was found- [address]2021-12-27 17:27:33 Test Item Value Reference Range Interpretation Comments Ventricular rate (test code = 253) Atrial rate (test code = 255) IN interval (test code = 266) QRSD interval [...] of 04-JUN-2021 18:19,-No significant change was found- [address]2021-12-27 17:27:33 Test Item Value Reference Range Interpretation Comments Ventricular rate (test code = 253) Atrial rate (test code = 255) IN interval (test code = 266) QRSD interval [...] of 04-JUN-2021 18:19,-No significant change was found- [address]2021-12-27 17:27:33 Test Item Value Reference Range Interpretation Comments Ventricular rate (test code = 253) Atrial rate (test code = 255) IN interval (test code = 266) QRSD interval [...] of 04-JUN-2021 18:19,-No significant change was found- [address]2021-12-27 17:27:33 Test Item Value Reference Range Interpretation Comments Ventricular rate (test code = 253) Atrial rate (test code = 255) IN interval (test code = 266) QRSD interval [...] of 04-JUN-2021 18:19,-No significant change was found- [address]2021-12-27 17:27:33 Test Item Value Reference Range Interpretation Comments Ventricular rate (test code = 253) Atrial rate (test code = 255) IN interval (test code = 266) QRSD interval [...] of 04-JUN-2021 18:19,-No significant change was found- [address]2021-12-27 17:27:33 Test Item Value Reference Range Interpretation Comments Ventricular rate (test code = 253) Atrial rate (test code = 255) IN interval (test code = 266) QRSD interval [...] of 04-JUN-2021 18:19,-No significant change was found- [address]2021-12-27 17:27:33 Test Item Value Reference Range Interpretation Comments Ventricular rate (test code = 253) Atrial rate (test code = 255) IN interval (test code = 266) QRSD interval [...] of 04-JUN-2021 18:19,-No significant change was found- [facility]2021-12-27 11:06:00 Test Item Value Reference Range Interpretation Comments ABO grouping (test code = 883-9) B Rh type (test code = 57578-6) POS Antibody screen (gel) (test code = NEG 890-4) [facility] and qygnbo5208-04-06 11:06:00 Test Item Value Reference Range Interpretation Comments ABO grouping (test code = 883-9) B Rh type (test code = 65900-1) POS Antibody screen (gel) (test code = NEG 890-4) [facility] and fosdmx6141-04-10 11:06:00 Test Item Value Reference Range Interpretation Comments ABO grouping (test code = 883-9) B Rh type (test code = 53675-8) POS Antibody screen (gel) (test code = NEG 890-4) [facility] and tmmgxm1937-46-19 11:06:00 Test Item Value Reference Range Interpretation Comments ABO grouping (test code = 883-9) B Rh type (test code = 67345-9) POS Antibody screen (gel) (test code = NEG 890-4) [facility] and vuoohk4021-78-02 11:06:00 Test Item Value Reference Range Interpretation Comments ABO grouping (test code = 883-9) B Rh type (test code = 72830-3) POS Antibody screen (gel) (test code = NEG 890-4) [facility] and bcrrqv4189-25-21 11:06:00 Test Item Value Reference Range Interpretation Comments ABO grouping (test code = 883-9) B Rh type (test code = 26215-0) POS Antibody screen (gel) (test code = NEG 890-4) [facility] and mdlnyl4040-81-11 11:06:00 Test Item Value Reference Range Interpretation Comments ABO grouping (test code = 883-9) B Rh type (test code = 65961-7) POS Antibody screen (gel) (test code = NEG 890-4) [facility] and ulcags7392-86-31 11:06:00 Test Item Value Reference Range Interpretation Comments ABO grouping (test code = 883-9) B Rh type (test code = 43451-6) POS Antibody screen (gel) (test code = NEG 890-4) [facility] and tznieb7645-18-42 11:06:00 Test Item Value Reference Range Interpretation Comments ABO grouping (test code = 883-9) B Rh type (test code = 58268-1) POS Antibody screen (gel) (test code = NEG 890-4) [facility] and hbzato5439-67-55 11:06:00 Test Item Value Reference Range Interpretation Comments ABO grouping (test code = 883-9) B Rh type (test code = 97641-5) POS Antibody screen (gel) (test code = NEG 890-4) [facility] zyhiqg5514-44-76 11:06:00 Test Item Value Reference Range Interpretation Comments ABO grouping (test code = 883-9) B Rh type (test code = 03700-0) POS Antibody screen (gel) (test code = NEG 890-4) [facility] igjdye1947-34-08 11:06:00 Test Item Value Reference Range Interpretation Comments ABO grouping (test code = 883-9) B Rh type (test code = 93358-4) POS Antibody screen (gel) (test code = NEG 890-4) [facility] yvwdvt8235-92-63 11:06:00 Test Item Value Reference Range Interpretation Comments ABO grouping (test code = 883-9) B Rh type (test code = 07081-7) POS Antibody screen (gel) (test code = NEG 890-4) [facility] [Presence] in Respiratory specimen by EMANUEL with probe zmhbkbiic3778-44-99 19:37:44 Test Item Value Reference Range Interpretation Comments SARS-CoV-2 (COVID-19) RNA Not detected Not-Detected [Presence] in Respiratory specimen by EMANUEL with probe detection (test code = 48960-6) 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 (test code = 23056-2) Whether the patient has symptoms related to condition of interest (test code = 02605-7) Patient was hospitalized because of this condition (test code = 15863-0) Whether the patient was admitted to intensive care unit (ICU) for condition of interest (test code = 30831-6) Whether patient resides in a congregate care setting (test code = 48963-0) [facility] ksynwhr2132-53-56 20:18:46 Test Item Value Reference Range Interpretation Comments Tissue culture No growth Specimen isolate (test after 3 days. InformationSp ecimen code = 34908-7) Source: Tiss ueSpecimen Site: Thigh: in fected right thigh wou nd [facility] yydyuha1570-47-24 20:18:46 Test Item Value Reference Range Interpretation Comments Tissue culture No growth Specimen isolate (test after 3 days. InformationSp ecimen code = 89039-5) Source: Tiss ueSpecimen Site: Thigh: in fected right thigh wou [facility] uzjavct5365-28-25 20:18:46 Test Item Value Reference Range Interpretation Comments Tissue culture No growth Specimen isolate (test after 3 days. InformationSp ecimen code = 29771-5) Source: Tiss ueSpecimen Site: Thigh: in fected right thigh [facility]2021-12-24 20:18:46 Test Item Value Reference Range Interpretation Comments Tissue culture No growth Specimen isolate (test after 3 days. InformationSp ecimen code = 62830-9) Source: Tiss ueSpecimen Site: Thigh: in fected right thigh wou [facility]2021-12-24 20:18:46 Test Item Value Reference Range Interpretation Comments Tissue culture No growth Specimen isolate (test after 3 days. InformationSp ecimen code = 84231-0) Source: Tiss ueSpecimen Site: Thigh: in fected right thigh wou [facility]2021-12-24 20:18:46 Test Item Value Reference Range Interpretation Comments Tissue culture No growth Specimen isolate (test after 3 days. InformationSp ecimen code = 87327-6) Source: Tiss ueSpecimen Site: Thigh: in fected right thigh wou [facility]2021-12-24 20:18:46 Test Item Value Reference Range Interpretation Comments Tissue culture No growth Specimen isolate (test after 3 days. InformationSp ecimen code = 31307-2) Source: Tiss ueSpecimen Site: Thigh: in fected right thigh wou [facility]2021-12-24 20:18:46 Test Item Value Reference Range Interpretation Comments Tissue culture No growth Specimen isolate (test after 3 days. InformationSp ecimen code = 52932-6) Source: Tiss ueSpecimen Site: Thigh: in fected right thigh wou [facility]2021-12-24 20:18:46 Test Item Value Reference Range Interpretation Comments Tissue culture No growth Specimen isolate (test after 3 days. InformationSp ecimen code = 53869-7) Source: Tiss ueSpecimen Site: Thigh: [facility] dqdoceq6509[facility]73-13 20:18:46 Test Item Value Reference Range Interpretation Comments Tissue culture No growth Specimen isolate (test after 3 days. InformationSp ecimen code = 38641-0) Source: Tiss ueSpecimen Site: Thigh: in fected [facility] dikykfb0964[facility]00-48 20:18:46 Test Item Value Reference Range Interpretation Comments Tissue culture No growth Specimen isolate (test after 3 days. InformationSp ecimen code = 12460-5) Source: Tiss ueSpecimen Site: Thigh: in fected [facility] [id number] 20:24:42 Test Item Value Reference Range Interpretation Comments AFB stain No acid fast Specimen (test code = bacilli (AFB) InformationSpe cimen 676-7) seen. Source: [place] eSpecimen Site: Thigh: [facility] yysse9212-46-25 20:24:42 Test Item Value Reference Range Interpretation Comments AFB stain No acid fast Specimen (test code = bacilli (AFB) InformationSpe cimen 676-7) seen. Source: [place] eSpecimen Site: Thigh: [facility]ect[facility] zyrwe7857-12-00 20:24:42 Test Item Value Reference Range Interpretation Comments AFB stain No acid fast Specimen (test code = bacilli (AFB) InformationSpe cimen 676-7) seen. Source: [place] eSpecimen Site: Thigh: [facility] ayayl2228-15-95 20:24:42 Test Item Value Reference Range Interpretation Comments AFB stain No acid fast Specimen (test code = bacilli (AFB) InformationSpe cimen 676-7) seen. Source: [place] eSpecimen Site: Thigh: [facility]ect[facility] [id number] 20:24:42 Test Item Value Reference Range Interpretation Comments AFB stain No acid fast Specimen (test code = bacilli (AFB) InformationSpe cimen 676-7) seen. Source: [place] eSpecimen Site: Thigh: [facility]ect[facility] mkued3703-32-94 20:24:42 Test Item Value Reference Range Interpretation Comments AFB stain No acid fast Specimen (test code = bacilli (AFB) InformationSpe cimen 676-7) seen. Source: [place] eSpecimen Site: Thigh: [facility]ect[facility] [id number] 20:24:42 Test Item Value Reference Range Interpretation Comments AFB stain No acid fast Specimen (test code = bacilli (AFB) InformationSpe cimen 676-7) seen. Source: [place] eSpecimen Site: Thigh: [facility] qhbhh9529-15-30 20:24:42 Test Item Value Reference Range Interpretation Comments AFB stain No acid fast Specimen (test code = bacilli (AFB) InformationSpe cimen 676-7) seen. Source: [place] eSpecimen Site: Thigh: [facility] fzfqm8480-10-03 20:24:42 Test Item Value Reference Range Interpretation Comments AFB stain No acid fast Specimen (test code = bacilli (AFB) InformationSpe cimen 676-7) seen. Source: [place] eSpecimen Site: Thigh: in fected wound right [facility] [id number] 20:24:42 Test Item Value Reference Range Interpretation Comments AFB stain No acid fast Specimen (test code = bacilli (AFB) InformationSpe cimen 676-7) seen. Source: [place] eSpecimen Site: Thigh: [facility] [id number] 20:24:42 Test Item Value Reference Range Interpretation Comments AFB stain No acid fast Specimen (test code = bacilli (AFB) InformationSpe cimen 676-7) seen. Source: [place] eSpecimen Site: Thigh: in fected wound right [facility] omircik5819-13-12 09:49:57 Test Item Value Reference Range Interpretation Comments Urine culture No growth Specimen isolate (test after 24 InformationSpe cimen code = 74216-7) hours Source: Urin eSpecimen Site: Clean cat [facility] vpqxlmh2155-71-28 09:49:57 Test Item Value Reference Range Interpretation Comments Urine culture No growth Specimen isolate (test after 24 InformationSpe cimen code = 31658-2) [facility]2021-12-20 09:49:57 Test Item Value Reference Range Interpretation Comments Urine culture No growth Specimen isolate (test after 24 InformationSpe cimen code = 42173-0) [facility]2021-12-20 09:49:57 Test Item Value Reference Range Interpretation Comments Urine culture No growth Specimen isolate (test after 24 InformationSpe cimen code = 28037-4) hours [facility]2021-12-20 09:49:57 Test Item Value Reference Range Interpretation Comments Urine culture No growth Specimen isolate (test after 24 InformationSpe cimen code = 96554-2) hours Source: [facility] Site: [facility]2021-12-20 09:49:57 Test Item Value Reference Range Interpretation Comments Urine culture No growth Specimen isolate (test after 24 InformationSpe cimen code = 29930-2) hours Source: [facility] Site: [facility]2021-12-20 09:49:57 Test Item Value Reference Range Interpretation Comments Urine culture No growth Specimen isolate (test after 24 InformationSpe cimen code = 41639-1) hours Source: [facility] Site: [facility]2021-12-20 09:49:57 Test Item Value Reference Range Interpretation Comments Urine culture No growth Specimen isolate (test after 24 InformationSpe cimen code = 12552-9) hours Source: [facility] Site: [facility]2021-12-20 09:49:57 Test Item Value Reference Range Interpretation Comments Urine culture No growth Specimen isolate (test after 24 InformationSpe cimen code = 14664-6) hours Source: [facility] Site: [facility]2021-12-20 09:49:57 Test Item Value Reference Range Interpretation Comments Urine culture No growth Specimen isolate (test after 24 InformationSpe cimen code = 24101-4) hours Source: [facility] Site: [facility]2021-12-20 09:49:57 Test Item Value Reference Range Interpretation Comments Urine culture No growth Specimen isolate (test after [facility] 29933-2) hours Source: [place] eSpecimen Site: [facility] alvxxgsfsiij8630-34-56 12:52:00 Test Item Value Reference Range Interpretation Comments ABO grouping (test code = 883-9) B Rh type (test code = 84261-2) [facility] vfgpphacozxd7613-66-11 12:52:00 Test Item Value Reference Range Interpretation Comments ABO grouping (test code = 883-9) B Rh type (test code = 06511-3) POS [facility] xnjfcvminhvx6897-88-97 12:52:00 Test Item Value Reference Range Interpretation Comments ABO grouping (test code = 883-9) B Rh type (test code = 11914-5) [facility] jmbuodxludna1739-92-10 12:52:00 Test Item Value Reference Range Interpretation Comments ABO grouping (test code = 883-9) B Rh type (test code = 00993-2) [facility] fqcftehziocb5681-96-46 12:52:00 Test Item Value Reference Range Interpretation Comments ABO grouping (test code = 883-9) B Rh type (test code = 92685-3) [facility] jiqktatwfwey9265-89-25 12:52:00 Test Item Value Reference Range Interpretation Comments ABO grouping (test code = 883-9) B Rh type (test code = 51284-2) [facility] gtbiuhwlpzna7065-84-23 12:52:00 Test Item Value Reference Range Interpretation Comments ABO grouping (test code = 883-9) B Rh type (test code = 80210-5) [facility] lmlcknorfbws4575-37-57 12:52:00 Test Item Value Reference Range Interpretation Comments ABO grouping (test code = 883-9) B Rh type (test code = 29459-6) [facility] psmmunjzlxax8731-02-91 12:52:00 Test Item Value Reference Range Interpretation Comments ABO grouping (test code = 883-9) B Rh type (test code = 78267-1) [facility] erhgqtoecoga9056-68-24 12:52:00 Test Item Value Reference Range Interpretation Comments ABO grouping (test code = 883-9) B Rh type (test code = 58441-1) [facility] fvvczbyhhovx9286-92-91 12:52:00 Test Item Value Reference Range Interpretation Comments ABO grouping (test code = 883-9) B Rh type (test code = 94043-9) [facility] [Presence] in Respiratory specimen by EMANUEL with probe oyuhlbigs7018-50-41 03:04:32 Test Item Value Reference Range Interpretation Comments SARS-CoV-2 (COVID-19) RNA Not detected Not-Detected [Presence] in Respiratory specimen by EMANUEL with probe detection (test code = 76121-7) 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 (test code = 89664-8) Whether the patient has symptoms related to condition of interest (test code = 86798-7) Patient was hospitalized because of this condition (test code = 92461-3) Whether the patient was admitted to intensive care unit (ICU) for condition of interest (test code = 74986-0) Whether patient resides in a congregate care setting (test code = 42501-9) [facility] [id number] 22:22:00 Test Item Value Reference Range Interpretation Comments Product name (test code Red Blood Cells -1, = 25) Leukored Unit number (test code = [id number]) Product code (test code T3798T89 = 3092) Dispense status (test Transfused code = 24) Blood expiration date (test code = 302) Blood type code (test code = 308) Blood type (test code = B POSITIVE 1314) Compatibility (test code Compatible = 6400) [facility], 1 Lobat3377-91-53 22:22:00 Test Item Value Reference Range Interpretation Comments Product name (test code Red Blood Cells -1, = 25) Leukored Unit number (test code = [id number]) Product code (test code T5076L89 = 3092) Dispense status (test Transfused code = 24) Blood expiration date (test code = 302) Blood type code (test code = 308) Blood type (test code = B POSITIVE 1314) Compatibility (test code Compatible = 6400) [facility] 1 Zbmiy8069-87-77 22:22:00 Test Item Value Reference Range Interpretation Comments Product name (test code Red Blood Cells -1, = 25) Leukored Unit number (test code = [id number]) Product code (test code R2130N87 = 3092) Dispense status (test Transfused code = 24) Blood expiration date (test code = 302) Blood type code (test code = 308) Blood type (test code = B POSITIVE 1314) Compatibility (test code Compatible = 6400) [facility], 1 Zczjn2505-42-61 22:22:00 Test Item Value Reference Range Interpretation Comments Product name (test code Red Blood Cells -1, = 25) Leukored Unit number (test code = [id number]) Product code (test code B4046N20 = 3092) Dispense status (test Transfused code = 24) Blood expiration date (test code = 302) Blood type code (test code = 308) Blood type (test code = B POSITIVE 1314) Compatibility (test code Compatible = 6400) [facility], 1 Dpdak4684-47-74 22:22:00 Test Item Value Reference Range Interpretation Comments Product name (test code Red Blood Cells -1, = 25) Leukored Unit number (test code = [id number]) Product code (test code X2681D06 = 3092) Dispense status (test Transfused code = 24) Blood expiration date (test code = 302) Blood type code (test code = 308) Blood type (test code = B POSITIVE 1314) Compatibility (test code Compatible = 6400) [facility], 1 Qszqu1410-16-28 22:22:00 Test Item Value Reference Range Interpretation Comments Product name (test code Red Blood Cells -1, = 25) Leukored Unit number (test code = [id number]) Product code (test code R2251W27 = 3092) Dispense status (test Transfused code = 24) Blood expiration date (test code = 302) Blood type code (test code = 308) Blood type (test code = B POSITIVE 1314) Compatibility (test code Compatible = 6400) [facility], 1 Kvgwo3557-81-83 22:22:00 Test Item Value Reference Range Interpretation Comments Product name (test code Red Blood Cells -1, = 25) Leukored Unit number (test code = [id number]) Product code (test code E5369J39 = 3092) Dispense status (test Transfused code = 24) Blood expiration date (test code = 302) Blood type code (test code = 308) Blood type (test code = B POSITIVE 1314) Compatibility (test code Compatible = 6400) [facility], 1 Pmppa4576-57-67 22:22:00 Test Item Value Reference Range Interpretation Comments Product name (test code Red Blood Cells -1, = 25) Leukored Unit number (test code = [id number]) Product code (test code K0880M61 = 3092) Dispense status (test Transfused code = 24) Blood expiration date (test code = 302) Blood type code (test code = 308) Blood type (test code = B POSITIVE 1314) Compatibility (test code Compatible = 6400) [facility], 1 Lmrcc1332-30-75 22:22:00 Test Item Value Reference Range Interpretation Comments Product name (test code Red Blood Cells -1, = 25) Leukored Unit number (test code = [id number]) Product code (test code P8922M79 = 3092) Dispense status (test Transfused code = 24) Blood expiration date (test code = 302) Blood type code (test code = 308) Blood type (test code = B POSITIVE 1314) Compatibility (test code Compatible = 6400) [facility], 1 Qkrxq1685-02-14 22:22:00 Test Item Value Reference Range Interpretation Comments Product name (test code Red Blood Cells -1, = 25) Leukored Unit number (test code = [id number]) Product code (test code O1862I82 = 3092) Dispense status (test Transfused code = 24) Blood expiration date (test code = 302) Blood type code (test code = 308) Blood type (test code = B POSITIVE 1314) Compatibility (test code Compatible = 6400) [facility] pathology dadvvsj4198-88-99 20:10:46 Test Item Value Reference Range Interpretation Comments Case number (test code = [id number]) Surgical pathology See link below for report (test code = PDF Lab Report 2255) Result status (test code This is Final Report = [id number]) for [address] pathology dmtivth0900-26-85 20:10:46 Test Item Value Reference Range Interpretation Comments Case number (test code = [id number]) Surgical pathology See link below for report (test code = PDF Lab Report 2255) Result status (test code This is Final Report = [id number]) for [address] pathology iiifzoc9968-88-73 20:10:46 Test Item Value Reference Range Interpretation Comments Case number (test code = [id number]) Surgical pathology See link below for report (test code = PDF Lab Report 2255) Result status (test code This is Final Report = [id number]) for [address] pathology [id number] 20:10:46 Test Item Value Reference Range Interpretation Comments Case number (test code = [id number]) Surgical pathology See link below for report (test code = PDF Lab Report 2255) Result status (test code This is Final Report = [id number]) for [address] pathology rchrmne9485-87-46 20:10:46 Test Item Value Reference Range Interpretation Comments Case number (test code = [id number]) Surgical pathology See link below for report (test code = PDF Lab Report 2255) Result status (test code This is Final Report = [id number]) for [address] pathology enyxdqu4004-36-59 20:10:46 Test Item Value Reference Range Interpretation Comments Case number (test code = [id number]) Surgical pathology See link below for report (test code = PDF Lab Report 2255) Result status (test code This is Final Report = [id number]) for [address] pathology keiiorr5827-41-34 20:10:46 Test Item Value Reference Range Interpretation Comments Case number (test code = [id number]) Surgical pathology See link below for report (test code = PDF Lab Report 2255) Result status (test code This is Final Report = [id number]) for [id number] [facility] pathology xkcpyjw5308-23-11 20:10:46 Test Item Value Reference Range Interpretation Comments Case number (test code = [id number]) Surgical pathology See link below for report (test code = PDF Lab Report 2255) Result status (test code This is Final Report = [id number]) for [address] pathology [id number] 20:10:46 Test Item Value Reference Range Interpretation Comments Case number (test code = [id number]) Surgical pathology See link below for report (test code = PDF Lab Report 2255) Result status (test code This is Final Report = [id number]) for [address] pathology rtgygke2570-20-86 20:10:46 Test Item Value Reference Range Interpretation Comments Case number (test code = [id number]) Surgical pathology See link below for report (test code = PDF Lab Report 2255) Result status (test code This is Final Report = [id number]) for [address] [facility] [id number] 15:35:00 Test Item Value Reference Range Interpretation Comments Product name (test code Platele tAph LR, Path = 25) Red cont3 Unit number (test code = [id number]) Product code (test code K0361V74 = 3092) Dispense status (test Transfused code = 24) Blood expiration date (test code = 302) Blood type code (test code = 308) Blood type (test code = O POSITIVE 1314) Compatibility (test code Not required = 6400) [facility] [id number] 15:35:00 Test Item Value Reference Range Interpretation Comments Product name (test code Platele tAph LR, Path = 25) Red cont3 Unit number (test code = [id number]) Product code (test code A9273N58 = 3092) Dispense status (test Transfused code = 24) Blood expiration date (test code = 302) Blood type code (test code = 308) Blood type (test code = O POSITIVE 1314) Compatibility (test code Not required = 6400) [facility] [id number] 15:35:00 Test Item Value Reference Range Interpretation Comments Product name (test code Platele tAph LR, Path = 25) Red cont3 Unit number (test code = [id number] 9985134) Product code (test code R7275M97 = 3092) Dispense status (test Transfused code = 24) Blood expiration date (test code = 302) Blood type code (test code = 308) Blood type (test code = O POSITIVE 1314) Compatibility (test code Not required = 6400) [facility] [id number] 15:35:00 Test Item Value Reference Range Interpretation Comments Product name (test code Platele tAp LR, Path = 25) Red cont3 Unit number (test code = [id number] 2613716) Product code (test code A6378C45 = 3092) Dispense status (test Transfused code = 24) Blood expiration date (test code = 302) Blood type code (test code = 308) Blood type (test code = O POSITIVE 1314) Compatibility (test code Not required = 6400) [facility] [id number] 15:35:00 Test Item Value Reference Range Interpretation Comments Product name (test code Platele tAp LR, Path = 25) Red cont3 Unit number (test code = [id number] 3133344) Product code (test code N7576X18 = 3092) Dispense status (test Transfused code = 24) Blood expiration date (test code = 302) Blood type code (test code = 308) Blood type (test code = O POSITIVE 1314) Compatibility (test code Not required = 6400) [facility] [id number] 15:35:00 Test Item Value Reference Range Interpretation Comments Product name (test code Platele tAph LR, Path = 25) Red cont3 Unit number (test code = [id number] 2034558) Product code (test code T8185K08 = 3092) Dispense status (test Transfused code = 24) Blood expiration date (test code = 302) Blood type code (test code = 308) Blood type (test code = O POSITIVE 1314) Compatibility (test code Not required = 6400) [facility] [id number] 15:35:00 Test Item Value Reference Range Interpretation Comments Product name (test code Platerick tAph LR, Path = 25) Red cont3 Unit number (test code = [id number] 8832160) Product code (test code X0355A98 = 3092) Dispense status (test Transfused code = 24) Blood expiration date (test code = 302) Blood type code (test code = 308) Blood type (test code = O POSITIVE 1314) Compatibility (test code Not required = 6400) [facility] [id number] 15:35:00 Test Item Value Reference Range Interpretation Comments Product name (test code Platerick tAph LR, Path = 25) Red cont3 Unit number (test code = [id number] 8427101) Product code (test code P6863T72 = 3092) Dispense status (test Transfused code = 24) Blood expiration date (test code = 302) Blood type code (test code = 308) Blood type (test code = O POSITIVE 1314) Compatibility (test code Not required = 6400) [facility] 1 [id number] 15:35:00 Test Item Value Reference Range Interpretation Comments Product name (test code Platerick tAph LR, Path = 25) Red cont3 Unit number (test code = [id number] 6101347) Product code (test code T3904N95 = 3092) Dispense status (test Transfused code = 24) Blood expiration date (test code = 302) Blood type code (test code = 308) Blood type (test code = O POSITIVE 1314) Compatibility (test code Not required = 6400) [facility] [id number] 15:35:00 Test Item Value Reference Range Interpretation Comments Product name (test code Platele tAph LR, Path = 25) Red cont3 Unit number (test code = [id number] 2396140) Product code (test code L0019K25 = 3092) Dispense status (test Transfused code = 24) Blood expiration date (test code = 302) Blood type code (test code = 308) Blood type (test code = O POSITIVE 1314) Compatibility (test code Not required = 6400) [facility] [id number] 12:13:24 Test Item Value Reference Range Interpretation Comments Activated clotting time See_Comment H Oper ator Name: (test code = 5298) Bryn thorntoneaDevice ID: [id number] [Automated mess age] The system [employer] generated this result transmitted ref erence range: 96 - 152 sec. The reference r leo was not used to interpret this result as normal/abnor mal. Lab Interpretation (test Abnormal code = 14521-6) [facility] [id number] 12:13:24 Test Item Value Reference Range Interpretation Comments Activated clotting time See_Comment H Oper ator Name: (test code = 5298) Bryn Denny eneaDevice ID: [id number] [Automated mess age] The system [employer] generated this result transmitted ref erence range: 96 - 152 sec. The reference r leo was not used to interpret this result as normal/abnor mal. Lab Interpretation (test Abnormal code = 16807-9) [facility] vagh9561-73-22 12:13:24 Test Item Value Reference Range Interpretation Comments Activated clotting time See_Comment H Oper ator Name: (test code = 5298) Bryn Denny eneaDevice ID: [id number] [Automated mess age] The system [employer] generated this result transmitted ref erence range: 96 - 152 sec. The reference r leo was not used to interpret this result as normal/abnor mal. Lab Interpretation (test Abnormal code = 00274-9) [facility] zzzf5716-22-03 12:13:24 Test Item Value Reference Range Interpretation Comments Activated clotting time See_Comment H Oper ator Name: (test code = 5298) Bryn Denny eneaDevice ID: [id number] [Automated mess age] The system [employer] h generated this result transmitted ref erence range: 96 - 152 sec. The reference r leo was not used to interpret this result as normal/abnor mal. Lab Interpretation (test Abnormal code = 43138-5) [facility] mxyy4045-70-78 12:13:24 Test Item Value Reference Range Interpretation Comments Activated clotting time See_Comment H Oper ator Name: (test code = 5298) Bryn Denny norbertoeaDevice ID: [id number] [Automated mess age] The system [employer] h generated this result transmitted ref erence range: 96 - 152 sec. The reference r leo was not used to interpret this result as normal/abnor mal. Lab Interpretation (test Abnormal code = 92183-0) [facility] mavn5800-83-34 12:13:24 Test Item Value Reference Range Interpretation Comments Activated clotting time See_Comment H Oper ator Name: (test code = 5298) Bryn Denny norbertoeaDevice ID: [id number] [Automated mess age] The system [employer] h generated this result transmitted ref erence range: 96 - 152 sec. The reference r leo was not used to interpret this result as normal/abnor mal. Lab Interpretation (test Abnormal code = 67312-1) [facility] [id number] 12:13:24 Test Item Value Reference Range Interpretation Comments Activated clotting time See_Comment H Oper ator Name: (test code = 5298) Bryn Denny norbertoeaDevice ID: [id number] [Automated mess age] The system [employer] h generated this result transmitted ref erence range: 96 - 152 sec. The reference r leo was not used to interpret this result as normal/abnor mal. Lab Interpretation (test Abnormal code = 80394-4) [facility] [id number] 12:13:24 Test Item Value Reference Range Interpretation Comments Activated clotting time See_Comment H Oper ator Name: (test code = 5298) Bryn Denny eneaDevice ID: [id number] [Automated mess age] The system [employer] h generated this result transmitted ref erence range: 96 - 152 sec. The reference r leo was not used to interpret this result as normal/abnor mal. Lab Interpretation (test Abnormal code = 74204-6) [facility] ceex1566-66-75 12:13:24 Test Item Value Reference Range Interpretation Comments Activated clotting time See_Comment H Oper ator Name: (test code = 5298) Bryn Denny eneaDevice ID: [id number] [Automated mess age] The system [employer] generated this result transmitted ref erence range: 96 - 152 sec. The reference r leo was not used to interpret this result as normal/abnor mal. Lab Interpretation (test Abnormal code = 12619-1) [facility] clotting [id number] 12:13:24 Test Item Value Reference Range Interpretation Comments Activated clotting time See_Comment H Oper ator Name: (test code = 5298) Bryn Denny eneaDevice ID: [id number] [Automated mess age] The system [employer] generated this result transmitted ref erence range: 96 - 152 sec. The reference r leo was not used to interpret this result as normal/abnor mal. Lab Interpretation (test Abnormal code = 33357-5) [facility] [id number] 14:37:48 Test Item Value Reference Range Interpretation Comments POC sodium (test code = 138 mmol/L 696-209 1544-0) POC potassium (test 5.5 mmol/L 3.5-5 H code = 6298-4) POC glucose (test code 295 mg/dL 65-99 H = 2339-0) POC creatinine (test 5.3 mg/dl 0.5-0.9 H Operato r Name: Pugne code = 34289-2) AileenDevice ID: [id number] POC hemoglobin (test 18.4 g/dL 12-16 H code = 718-7) POC hematocrit (test 54 % 37-47 H code = 4544-3) Lab Interpretation Abnormal (test code = 85349-6) [facility] [id number] 14:37:48 Test Item Value Reference Range Interpretation Comments POC sodium (test code = 138 mmol/L 371-885 8920-0) POC potassium (test 5.5 mmol/L 3.5-5 H code = 6298-4) POC glucose (test code 295 mg/dL 65-99 H = 2339-0) POC creatinine (test 5.3 mg/dl 0.5-0.9 H Operato r Name: Pugne code = 63334-2) AileenDevice ID: [id number] POC hemoglobin (test 18.4 g/dL 12-16 H code = 718-7) POC hematocrit (test 54 % 37-47 H code = 4544-3) Lab Interpretation Abnormal (test code = 67005-1) [place] 605591-11-29 14:37:48 Test Item Value Reference Range Interpretation Comments POC sodium (test code = 138 mmol/L 469-064 8605-0) POC potassium (test 5.5 mmol/L 3.5-5 H code = 6298-4) POC glucose (test code 295 mg/dL 65-99 H = 2339-0) POC creatinine (test 5.3 mg/dl 0.5-0.9 H Operato r Name: Johannae code = 19455-2) Lisavice ID: [id number] POC hemoglobin (test 18.4 g/dL 12-16 H code = 718-7) POC hematocrit (test 54 % 37-47 H code = 4544-3) Lab Interpretation Abnormal (test code = 37361-4) [facility]2021-11-29 14:37:48 Test Item Value Reference Range Interpretation Comments POC sodium (test code = 138 mmol/L 439-282 3592-0) POC potassium (test 5.5 mmol/L 3.5-5 H code = 6298-4) POC glucose (test code 295 mg/dL 65-99 H = 2339-0) POC creatinine (test 5.3 mg/dl 0.5-0.9 H Operato r Name: Johannae code = 34337-0) AiljoshDevice ID: [id number] POC hemoglobin (test 18.4 g/dL 12-16 H code = 718-7) POC hematocrit (test 54 % 37-47 H code = 4544-3) Lab Interpretation Abnormal (test code = 94304-1) [place] 605591-11-29 14:37:48 Test Item Value Reference Range Interpretation Comments POC sodium (test code = 138 mmol/L 843-209 6303-0) POC potassium (test 5.5 mmol/L 3.5-5 H code = 6298-4) POC glucose (test code 295 mg/dL 65-99 H = 2339-0) POC creatinine (test 5.3 mg/dl 0.5-0.9 H Operato r Name: Pue code = 32519-5) AileenDevice ID: [id number] POC hemoglobin (test 18.4 g/dL 12-16 H code = 718-7) POC hematocrit (test 54 % 37-47 H code = 4544-3) Lab Interpretation Abnormal (test code = 39349-8) [place] 605591-11-29 14:37:48 Test Item Value Reference Range Interpretation Comments POC sodium (test code = 138 mmol/L 060-283 6713-0) POC potassium (test 5.5 mmol/L 3.5-5.0 H code = 6298-4) POC glucose (test code 295 mg/dL 65-99 H = 2339-0) POC creatinine (test 5.3 mg/dl 0.5-0.9 H Operato r Name: Carminae code = 83188-7) AileenDevice ID: [id number] POC hemoglobin (test 18.4 g/dL 12.0-16.0 H code = 718-7) POC hematocrit (test 54 % 37-47 H code = 4544-3) Lab Interpretation Abnormal (test code = 64029-7) [facility]2021-11-29 14:37:48 Test Item Value Reference Range Interpretation Comments POC sodium (test code = 138 mmol/L 566-093 6881-0) POC potassium (test 5.5 mmol/L 3.5-5.0 H code = 6298-4) POC glucose (test code 295 mg/dL 65-99 H = 2339-0) POC creatinine (test 5.3 mg/dl 0.5-0.9 H Operato r Name: Carminae code = 34598-7) AileenDevice ID: [id number] POC hemoglobin (test 18.4 g/dL 12.0-16.0 H code = 718-7) POC hematocrit (test 54 % 37-47 H code = 4544-3) Lab Interpretation Abnormal (test code = 56565-6) [facility]2021-11-29 14:37:48 Test Item Value Reference Range Interpretation Comments POC sodium (test code = 138 mmol/L 160-089 4367-0) POC potassium (test 5.5 mmol/L 3.5-5 H code = 6298-4) POC glucose (test code 295 mg/dL 65-99 H = 2339-0) POC creatinine (test 5.3 mg/dl 0.5-0.9 H Operato r Name: Johannae code = 77315-6) AileenDevice ID: [id number] POC hemoglobin (test 18.4 g/dL 12-16 H code = 718-7) POC hematocrit (test 54 % 37-47 H code = 4544-3) Lab Interpretation Abnormal (test code = 15754-2) [facility]2021-11-29 14:37:48 Test Item Value Reference Range Interpretation Comments POC sodium (test code = 138 mmol/L 003-861 7597-0) POC potassium (test 5.5 mmol/L 3.5-5 H code = 6298-4) POC glucose (test code 295 mg/dL 65-99 H = 2339-0) POC creatinine (test 5.3 mg/dl 0.5-0.9 H Operato r Name: Johannae code = 20914-4) AileenDevice ID: [id number] POC hemoglobin (test 18.4 g/dL 12-16 H code = 718-7) POC hematocrit (test 54 % 37-47 H code = 4544-3) Lab Interpretation Abnormal (test code = 86719-2) [facility]2021-11-29 14:37:48 Test Item Value Reference Range Interpretation Comments POC sodium (test code = 138 mmol/L 296-478 0871-0) POC potassium (test 5.5 mmol/L 3.5-5 H code = 6298-4) POC glucose (test code 295 mg/dL 65-99 H = 2339-0) POC creatinine (test 5.3 mg/dl 0.5-0.9 H Operato r Name: Carminagne code = 19218-6) AileenDevice ID: [id number] POC hemoglobin (test 18.4 g/dL 12-16 H code = 718-7) POC hematocrit (test 54 % 37-47 H code = 4544-3) Lab Interpretation Abnormal (test code = 46346-5) [facility] RNA [Presence] in Respiratory specimen by EMANUEL with probe sdhktvdvx9020-08-56 07:53:49 Test Item Value Reference Range Interpretation Comments SARS-CoV-2 (COVID-19) RNA Not detected Not-Detected [Presence] in Respiratory specimen by EMANUEL with probe detection (test code = 86650-4) 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 (test code = 48714-7) Whether the patient has symptoms related to condition of interest (test code = 40706-5) Patient was hospitalized because of this condition (test code = 67866-9) Whether the patient was admitted to intensive care unit (ICU) for condition of interest (test code = 47376-1) Whether patient resides in a congregate care setting (test code = 18889-7) [facility]2021-08-11 08:17:00 Test Item Value Reference Range Interpretation Comments Glucose Lvl (test code = Glucose Lvl) 94 70-99 [facility]2021-08-11 08:17:00 Test Item Value Reference Range Interpretation Comments BUN (test code = BUN) 27 7-22 [facility]2021-08-11 08:17:00 Test Item Value Reference Range Interpretation Comments Creatinine Lvl (test code = Creatinine 4.95 0.50-1.40 Lvl) [facility]2021-08-11 08:17:00 Test Item Value Reference Range Interpretation Comments Sodium Lvl (test code = Sodium Lvl) 136 135-145 [facility]2021-08-11 08:17:00 Test Item Value Reference Range Interpretation Comments Potassium Lvl (test code = Potassium 3.9 3.5-5.1 Lvl) [facility]2021-08-11 08:17:00 Test Item Value Reference Range Interpretation Comments Chloride Lvl (test code = Chloride Lvl) 103 95-109 [place] 804351-08-11 08:17:00 Test Item Value Reference Range Interpretation Comments CO2 (test code = CO2) 30 24-32 [place] 804351-08-11 08:17:00 Test Item Value Reference Range Interpretation Comments AGAP (test code = AGAP) 6.9 10.0-20.0 [place] 804351-08-11 08:17:00 Test Item Value Reference Range Interpretation Comments Calcium Lvl (test code = Calcium Lvl) 8.5 8.5-10.5 [facility]2021-08-11 08:17:00 Test Item Value Reference Range Interpretation Comments eGFR (test code = eGFR) 10 [facility]2021-08-11 08:17:00 Test Item Value Reference Range Interpretation Comments Phosphorus (test code = Phosphorus) 3.0 2.5-4.5 [place] 804351-08-11 08:17:00 Test Item Value Reference Range Interpretation Comments Magnesium Lvl (test code = Magnesium 2.4 1.8-2.4 Lvl) [place] 749491-08-11 08:17:00 Test Item Value Reference Range Interpretation Comments WBC (test code = WBC) 2.3 3.7-10.4 [place] 749491-08-11 08:17:00 Test Item Value Reference Range Interpretation Comments RBC (test code = RBC) 2.65 4.20-5.40 [place] 749491-08-11 08:17:00 Test Item Value Reference Range Interpretation Comments Hgb (test code = Hgb) 7.9 12.0-16.0 [place] 25249-08-11 08:17:00 Test Item Value Reference Range Interpretation Comments Hct (test code = Hct) 24.0 36.0-48.0 [place] 749491-08-11 08:17:00 Test Item Value Reference Range Interpretation Comments MCV (test code = MCV) 90.6 80.0-98.0 [place] 749491-08-11 08:17:00 Test Item Value Reference Range Interpretation Comments MCH (test code = MCH) 29.7 pg 27.0-31.0 [place] 749491-08-11 08:17:00 Test Item Value Reference Range Interpretation Comments MCHC (test code = MCHC) 32.7 32.0-36.0 [place] 25249-08-11 08:17:00 Test Item Value Reference Range Interpretation Comments RDW (test code = RDW) 19.1 11.5-14.5 [place] 25249-08-11 08:17:00 Test Item Value Reference Range Interpretation Comments Platelet (test code = Platelet) 71 133-450 [place] 749491-08-11 08:17:00 Test Item Value Reference Range Interpretation Comments MPV (test code = MPV) 9.9 7.4-10.4 [place] 749491-08-11 08:17:00 Test Item Value Reference Range Interpretation Comments Segs (test code = Segs) 56.1 45.0-75.0 [place] 749491-08-11 08:17:00 Test Item Value Reference Range Interpretation Comments Lymphocytes (test code = Lymphocytes) 28.9 20.0-40.0 [place] 749491-08-11 08:17:00 Test Item Value Reference Range Interpretation Comments Monocytes (test code = Monocytes) 8.1 2.0-12.0 [place] 749491-08-11 08:17:00 Test Item Value Reference Range Interpretation Comments Eosinophils (test code = 5.9 See_Comment [A utomated message] The Eosinophils) system which ge nerated this result tra nsmitted reference range : <=4.0. The reference r leo was not used to int erpret this result as normal/abnormal . [facility]libGNTMKVKUUS[facility]23[facility] 08:17:00 Test Item Value Reference Range Interpretation Comments Basophils (test code = 1.0 See_Comment [Aut omated message] The Basophils) system which ge nerated this result tra nsmitted reference range : <=1.0. The reference r leo was not used to int erpret this result as normal/abnormal . [facility]GygosqyAVLLLXRZTO2986-92-04 08:17:00 Test Item Value Reference Range Interpretation Comments Neutrophils # (test code = Neutrophils 1.3 1.5-8.1 #) [facility] CampusFhgjvwrPWHKILNSUF9353-36-55 08:17:00 Test Item Value Reference Range Interpretation Comments Lymphocytes # (test code = Lymphocytes 0.7 1.0-5.5 #) [place] 749491-08-11 08:17:00 Test Item Value Reference Range Interpretation Comments Monocytes # (test code 0.2 See_Comment [Aut omated message] The = Monocytes #) system which generated this result tra nsmitted reference range : <=0.8. The reference r leo was not used to int erpret this result as normal/abnormal . [place] 749491-08-11 08:17:00 Test Item Value Reference Range Interpretation Comments Eosinophils # (test code 0.1 See_Comment [A utomated message] The = Eosinophils #) system whic h generated this result tra nsmitted reference range : <=0.5. The reference r leo was not used to int erpret this result as normal/abnormal . [place] 804351-08-11 08:17:00 Test Item Value Reference Range Interpretation Comments Glucose Lvl (test code = Glucose Lvl) 94 70-99 [place] 804351-08-11 08:17:00 Test Item Value Reference Range Interpretation Comments BUN (test code = BUN) 27 7-22 [place] 804351-08-11 08:17:00 Test Item Value Reference Range Interpretation Comments Creatinine Lvl (test code = Creatinine 4.95 0.50-1.40 Lvl) [place] 804351-08-11 08:17:00 Test Item Value Reference Range Interpretation Comments Sodium Lvl (test code = Sodium Lvl) 136 135-145 [place] 804351-08-11 08:17:00 Test Item Value Reference Range Interpretation Comments Potassium Lvl (test code = Potassium 3.9 3.5-5.1 Lvl) [place] 804351-08-11 08:17:00 Test Item Value Reference Range Interpretation Comments Chloride Lvl (test code = Chloride Lvl) 103 95-109 [place] 804351-08-11 08:17:00 Test Item Value Reference Range Interpretation Comments CO2 (test code = CO2) 30 24-32 [place] 804351-08-11 08:17:00 Test Item Value Reference Range Interpretation Comments AGAP (test code = AGAP) 6.9 10.0-20.0 [place] 804351-08-11 08:17:00 Test Item Value Reference Range Interpretation Comments Calcium Lvl (test code = Calcium Lvl) 8.5 8.5-10.5 [place] 804351-08-11 08:17:00 Test Item Value Reference Range Interpretation Comments eGFR (test code = eGFR) 10 [place] 804351-08-11 08:17:00 Test Item Value Reference Range Interpretation Comments Phosphorus (test code = Phosphorus) 3.0 2.5-4.5 [facility]2021-08-11 08:17:00 Test Item Value Reference Range Interpretation Comments Magnesium Lvl (test code = Magnesium 2.4 1.8-2.4 Lvl) [facility]IpbcsuyAVDXUPGJMK8356-15-55 08:17:00 Test Item Value Reference Range Interpretation Comments WBC (test code = WBC) 2.3 3.7-10.4 [facility] CampusYezxjfsXFNISJQULK4297-87-29 08:17:00 Test Item Value Reference Range Interpretation Comments RBC (test code = RBC) 2.65 4.20-5.40 [facility] CampusFotwnmjABTXEGOXBE1073-39-32 08:17:00 Test Item Value Reference Range Interpretation Comments Hgb (test code = Hgb) 7.9 12.0-16.0 [place] 749491-08-11 08:17:00 Test Item Value Reference Range Interpretation Comments Hct (test code = Hct) 24.0 36.0-48.0 [facility] CampusNfqekyaAQMDQNOGPS3931-62-55 08:17:00 Test Item Value Reference Range Interpretation Comments MCV (test code = MCV) 90.6 80.0-98.0 [facility] CampusSqhwyqsMYXNHJSLTI8321-82-85 08:17:00 Test Item Value Reference Range Interpretation Comments MCH (test code = MCH) 29.7 pg 27.0-31.0 [facility] CampusKxwzutlXHVSQGFXVD3874-43-76 08:17:00 Test Item Value Reference Range Interpretation Comments MCHC (test code = MCHC) 32.7 32.0-36.0 [facility] CampusRxgyqdzXHXOTXQXDP4750-55-92 08:17:00 Test Item Value Reference Range Interpretation Comments RDW (test code = RDW) 19.1 11.5-14.5 [place] 749491-08-11 08:17:00 Test Item Value Reference Range Interpretation Comments Platelet (test code = Platelet) 71 133-450 [facility] CampusAbqjiicSVMKMBUGEY5804-70-23 08:17:00 Test Item Value Reference Range Interpretation Comments MPV (test code = MPV) 9.9 7.4-10.4 [facility] CampusSthuhmwQKXOOJQEMB3618-27-20 08:17:00 Test Item Value Reference Range Interpretation Comments Segs (test code = Segs) 56.1 45.0-75.0 [facility] CampusPaakupxQVBOMOKIPQ1014-06-57 08:17:00 Test Item Value Reference Range Interpretation Comments Lymphocytes (test code = Lymphocytes) 28.9 20.0-40.0 [place] 749491-08-11 08:17:00 Test Item Value Reference Range Interpretation Comments Monocytes (test code = Monocytes) 8.1 2.0-12.0 [place] 749491-08-11 08:17:00 Test Item Value Reference Range Interpretation Comments Eosinophils (test code = 5.9 See_Comment [A utomated message] The Eosinophils) system which ge nerated this result tra nsmitted reference range : <=4.0. The reference r leo was not used to int erpret this result as normal/abnormal . [place] 749491-08-11 08:17:00 Test Item Value Reference Range Interpretation Comments Basophils (test code = 1.0 See_Comment [Aut omated message] The Basophils) system which ge nerated this result tra nsmitted reference range : <=1.0. The reference r leo was not used to int erpret this result as normal/abnormal . [facility] CampusMnwsuxxKPSKNEIIJQ3360-02-45 08:17:00 Test Item Value Reference Range Interpretation Comments Neutrophils # (test code = Neutrophils 1.3 1.5-8.1 #) [facility] CampusHqqubouHIBDRXPQED9501-08-54 08:17:00 Test Item Value Reference Range Interpretation Comments Lymphocytes # (test code = Lymphocytes 0.7 1.0-5.5 #) [facility] CampusNpgyjvtUHLPYKXJAU3908-29-64 08:17:00 Test Item Value Reference Range Interpretation Comments Monocytes # (test code 0.2 See_Comment [Aut omated message] The = Monocytes #) system which generated this result tra nsmitted reference range : <=0.8. The reference r leo was not used to int erpret this result as normal/abnormal . [place] 749491-08-11 08:17:00 Test Item Value Reference Range Interpretation Comments Eosinophils # (test code 0.1 See_Comment [A utomated message] The = Eosinophils #) system whic h generated this result tra nsmitted reference range : <=0.5. The reference r leo was not used to int erpret this result as normal/abnormal . [facility]2021-08-11 08:17:00 Test Item Value Reference Range Interpretation Comments Glucose Lvl (test code = Glucose Lvl) 94 70-99 [place] 804351-08-11 08:17:00 Test Item Value Reference Range Interpretation Comments BUN (test code = BUN) 27 7-22 [place] 804351-08-11 08:17:00 Test Item Value Reference Range Interpretation Comments Creatinine Lvl (test code = Creatinine 4.95 0.50-1.40 Lvl) [place] 804351-08-11 08:17:00 Test Item Value Reference Range Interpretation Comments Sodium Lvl (test code = Sodium Lvl) 136 135-145 [place] 804351-08-11 08:17:00 Test Item Value Reference Range Interpretation Comments Potassium Lvl (test code = Potassium 3.9 3.5-5.1 Lvl) [place] 804351-08-11 08:17:00 Test Item Value Reference Range Interpretation Comments Chloride Lvl (test code = Chloride Lvl) 103 95-109 [place] 804351-08-11 08:17:00 Test Item Value Reference Range Interpretation Comments CO2 (test code = CO2) 30 24-32 [place] 804351-08-11 08:17:00 Test Item Value Reference Range Interpretation Comments AGAP (test code = AGAP) 6.9 10.0-20.0 [place] 804351-08-11 08:17:00 Test Item Value Reference Range Interpretation Comments Calcium Lvl (test code = Calcium Lvl) 8.5 8.5-10.5 [place] 804351-08-11 08:17:00 Test Item Value Reference Range Interpretation Comments eGFR (test code = eGFR) 10 [place] 804351-08-11 08:17:00 Test Item Value Reference Range Interpretation Comments Phosphorus (test code = Phosphorus) 3.0 2.5-4.5 [place] 804351-08-11 08:17:00 Test Item Value Reference Range Interpretation Comments Magnesium Lvl (test code = Magnesium 2.4 1.8-2.4 Lvl) [place] 749491-08-11 08:17:00 Test Item Value Reference Range Interpretation Comments WBC (test code = WBC) 2.3 3.7-10.4 [place] [address]-08-11 08:17:00 Test Item Value Reference Range Interpretation Comments RBC (test code = RBC) 2.65 4.20-5.40 [place] 749491-08-11 08:17:00 Test Item Value Reference Range Interpretation Comments Hgb (test code = Hgb) 7.9 12.0-16.0 [facility] CampusKlxasvwZERHECRHEZ4693-03-51 08:17:00 Test Item Value Reference Range Interpretation Comments Hct (test code = Hct) 24.0 36.0-48.0 [facility] CampusNcskeksIWDJXCNYSL8390-96-40 08:17:00 Test Item Value Reference Range Interpretation Comments MCV (test code = MCV) 90.6 80.0-98.0 [facility] CampusAubzqghOVQVZMYVAV1937-42-51 08:17:00 Test Item Value Reference Range Interpretation Comments MCH (test code = MCH) 29.7 pg 27.0-31.0 [facility] CampusPblayxsJJTJCCPKXC8543-06-21 08:17:00 Test Item Value Reference Range Interpretation Comments MCHC (test code = MCHC) 32.7 32.0-36.0 [facility] CampusOgbshriJLFMIKNIFF0830-16-66 08:17:00 Test Item Value Reference Range Interpretation Comments RDW (test code = RDW) 19.1 11.5-14.5 [facility] CampusEbwcuqtJHHICVIWAL8944-38-85 08:17:00 Test Item Value Reference Range Interpretation Comments Platelet (test code = Platelet) 71 133-450 [facility] CampusUxsrygzZYMDXKJZEI2310-98-95 08:17:00 Test Item Value Reference Range Interpretation Comments MPV (test code = MPV) 9.9 7.4-10.4 [facility] CampusYnynssqADCRWQXQKA0930-32-12 08:17:00 Test Item Value Reference Range Interpretation Comments Segs (test code = Segs) 56.1 45.0-75.0 [place] 749491-08-11 08:17:00 Test Item Value Reference Range Interpretation Comments Lymphocytes (test code = Lymphocytes) 28.9 20.0-40.0 [place] 749491-08-11 08:17:00 Test Item Value Reference Range Interpretation Comments Monocytes (test code = Monocytes) 8.1 2.0-12.0 [place] 749491-08-11 08:17:00 Test Item Value Reference Range Interpretation Comments Eosinophils (test code = 5.9 See_Comment [A utomated message] The Eosinophils) system which ge nerated this result tra nsmitted reference range : <=4.0. The reference r leo was not used to int erpret this result as normal/abnormal . [place] 749491-08-11 08:17:00 Test Item Value Reference Range Interpretation Comments Basophils (test code = 1.0 See_Comment [Aut omated message] The Basophils) system which ge nerated this result tra nsmitted reference range : <=1.0. The reference r leo was not used to int erpret this result as normal/abnormal . [place] 749491-08-11 08:17:00 Test Item Value Reference Range Interpretation Comments Neutrophils # (test code = Neutrophils 1.3 1.5-8.1 #) [place] 749491-08-11 08:17:00 Test Item Value Reference Range Interpretation Comments Lymphocytes # (test code = Lymphocytes 0.7 1.0-5.5 #) [place] 749491-08-11 08:17:00 Test Item Value Reference Range Interpretation Comments Monocytes # (test code 0.2 See_Comment [Aut omated message] The = Monocytes #) system which generated this result tra nsmitted reference range : <=0.8. The reference r leo was not used to int erpret this result as normal/abnormal . [place] 749491-08-11 08:17:00 Test Item Value Reference Range Interpretation Comments Eosinophils # (test code 0.1 See_Comment [A utomated message] The = Eosinophils #) system whic h generated this result tra nsmitted reference range : <=0.5. The reference r leo was not used to int erpret this result as normal/abnormal . [facility] 08:17:00 Test Item Value Reference Range Interpretation Comments Glucose Lvl (test code = Glucose Lvl) 94 70-99 [facility]2021-08-11 08:17:00 Test Item Value Reference Range Interpretation Comments BUN (test code = BUN) 27 7-22 [facility] AEIMM5539-55-97 08:17:00 Test Item Value Reference Range Interpretation Comments Creatinine Lvl (test code = Creatinine 4.95 0.50-1.40 Lvl) [place] 804351-08-11 08:17:00 Test Item Value Reference Range Interpretation Comments Sodium Lvl (test code = Sodium Lvl) 136 135-145 [place] 804351-08-11 08:17:00 Test Item Value Reference Range Interpretation Comments Potassium Lvl (test code = Potassium 3.9 3.5-5.1 Lvl) [place] 804351-08-11 08:17:00 Test Item Value Reference Range Interpretation Comments Chloride Lvl (test code = Chloride Lvl) 103 95-109 [place] 804351-08-11 08:17:00 Test Item Value Reference Range Interpretation Comments CO2 (test code = CO2) 30 24-32 [place] 804351-08-11 08:17:00 Test Item Value Reference Range Interpretation Comments AGAP (test code = AGAP) 6.9 10.0-20.0 [place] 804351-08-11 08:17:00 Test Item Value Reference Range Interpretation Comments Calcium Lvl (test code = Calcium Lvl) 8.5 8.5-10.5 [place] 804351-08-11 08:17:00 Test Item Value Reference Range Interpretation Comments eGFR (test code = eGFR) 10 [place] 804351-08-11 08:17:00 Test Item Value Reference Range Interpretation Comments Phosphorus (test code = Phosphorus) 3.0 2.5-4.5 [place] 804351-08-11 08:17:00 Test Item Value Reference Range Interpretation Comments Magnesium Lvl (test code = Magnesium 2.4 1.8-2.4 Lvl) [place] 749491-08-11 08:17:00 Test Item Value Reference Range Interpretation Comments WBC (test code = WBC) 2.3 3.7-10.4 [place] 749491-08-11 08:17:00 Test Item Value Reference Range Interpretation Comments RBC (test code = RBC) 2.65 4.20-5.40 [place] [address]-08-11 08:17:00 Test Item Value Reference Range Interpretation Comments Hgb (test code = Hgb) 7.9 12.0-16.0 [place] 749491-08-11 08:17:00 Test Item Value Reference Range Interpretation Comments Hct (test code = Hct) 24.0 36.0-48.0 [place] 749491-08-11 08:17:00 Test Item Value Reference Range Interpretation Comments MCV (test code = MCV) 90.6 80.0-98.0 [place] 749491-08-11 08:17:00 Test Item Value Reference Range Interpretation Comments MCH (test code = MCH) 29.7 pg 27.0-31.0 [place] 749491-08-11 08:17:00 Test Item Value Reference Range Interpretation Comments MCHC (test code = MCHC) 32.7 32.0-36.0 [place] 749491-08-11 08:17:00 Test Item Value Reference Range Interpretation Comments RDW (test code = RDW) 19.1 11.5-14.5 [place] 749491-08-11 08:17:00 Test Item Value Reference Range Interpretation Comments Platelet (test code = Platelet) 71 133-450 [facility] CampusTrruggmENXIQLNVKP6175-28-56 08:17:00 Test Item Value Reference Range Interpretation Comments MPV (test code = MPV) 9.9 7.4-10.4 [facility] CampusIbepajmDEZMYPOENG3467-20-86 08:17:00 Test Item Value Reference Range Interpretation Comments Segs (test code = Segs) 56.1 45.0-75.0 [facility] CampusBdrrbtnPYGASQDGZX0431-31-62 08:17:00 Test Item Value Reference Range Interpretation Comments Lymphocytes (test code = Lymphocytes) 28.9 20.0-40.0 [place] 749491-08-11 08:17:00 Test Item Value Reference Range Interpretation Comments Monocytes (test code = Monocytes) 8.1 2.0-12.0 [place] 749491-08-11 08:17:00 Test Item Value Reference Range Interpretation Comments Eosinophils (test code = 5.9 See_Comment [A utomated message] The Eosinophils) system which ge nerated this result tra nsmitted reference range : <=4.0. The reference r leo was not used to int erpret this result as normal/abnormal . [facility] CampusEqnfsfhOOKJQDDGKX1931-66-40 08:17:00 Test Item Value Reference Range Interpretation Comments Basophils (test code = 1.0 See_Comment [Aut omated message] The Basophils) system which ge nerated this result tra nsmitted reference range : <=1.0. The reference r leo was not used to int erpret this result as normal/abnormal . [place] 749491-08-11 08:17:00 Test Item Value Reference Range Interpretation Comments Neutrophils # (test code = Neutrophils 1.3 1.5-8.1 #) [place] 749491-08-11 08:17:00 Test Item Value Reference Range Interpretation Comments Lymphocytes # (test code = Lymphocytes 0.7 1.0-5.5 #) [place] 749491-08-11 08:17:00 Test Item Value Reference Range Interpretation Comments Monocytes # (test code 0.2 See_Comment [Aut omated message] The = Monocytes #) system which generated this result tra nsmitted reference range : <=0.8. The reference r leo was not used to int erpret this result as normal/abnormal . [facility] CampusGwvwanjWMRRODOTZL8846-25-88 08:17:00 Test Item Value Reference Range Interpretation Comments Eosinophils # (test code 0.1 See_Comment [A utomated message] The = Eosinophils #) system whic h generated this result tra nsmitted reference range : <=0.5. The reference r leo was not used to int erpret this result as normal/abnormal . [facility]2021-08-11 08:17:00 Test Item Value Reference Range Interpretation Comments Glucose Lvl (test code = Glucose Lvl) 94 70-99 [place] 804351-08-11 08:17:00 Test Item Value Reference Range Interpretation Comments BUN (test code = BUN) 27 7-22 [place] 804351-08-11 08:17:00 Test Item Value Reference Range Interpretation Comments Creatinine Lvl (test code = Creatinine 4.95 0.50-1.40 Lvl) [place] 804351-08-11 08:17:00 Test Item Value Reference Range Interpretation Comments Sodium Lvl (test code = Sodium Lvl) 136 135-145 [place] 804351-08-11 08:17:00 Test Item Value Reference Range Interpretation Comments Potassium Lvl (test code = Potassium 3.9 3.5-5.1 Lvl) [place] 804351-08-11 08:17:00 Test Item Value Reference Range Interpretation Comments Chloride Lvl (test code = Chloride Lvl) 103 95-109 [place] 804351-08-11 08:17:00 Test Item Value Reference Range Interpretation Comments CO2 (test code = CO2) 30 24-32 [place] [address]-08-11 08:17:00 Test Item Value Reference Range Interpretation Comments AGAP (test code = AGAP) 6.9 10.0-20.0 [place] 804351-08-11 08:17:00 Test Item Value Reference Range Interpretation Comments Calcium Lvl (test code = Calcium Lvl) 8.5 8.5-10.5 [place] 804351-08-11 08:17:00 Test Item Value Reference Range Interpretation Comments eGFR (test code = eGFR) 10 [place] 804351-08-11 08:17:00 Test Item Value Reference Range Interpretation Comments Phosphorus (test code = Phosphorus) 3.0 2.5-4.5 [place] 804351-08-11 08:17:00 Test Item Value Reference Range Interpretation Comments Magnesium Lvl (test code = Magnesium 2.4 1.8-2.4 Lvl) [place] 749491-08-11 08:17:00 Test Item Value Reference Range Interpretation Comments WBC (test code = WBC) 2.3 3.7-10.4 [place] 749491-08-11 08:17:00 Test Item Value Reference Range Interpretation Comments RBC (test code = RBC) 2.65 4.20-5.40 [place] [address]-08-11 08:17:00 Test Item Value Reference Range Interpretation Comments Hgb (test code = Hgb) 7.9 12.0-16.0 [place] 25[address]-08-11 08:17:00 Test Item Value Reference Range Interpretation Comments Hct (test code = Hct) 24.0 36.0-48.0 [place] [address]-08-11 08:17:00 Test Item Value Reference Range Interpretation Comments MCV (test code = MCV) 90.6 80.0-98.0 [place] [address]-08-11 08:17:00 Test Item Value Reference Range Interpretation Comments MCH (test code = MCH) 29.7 pg 27.0-31.0 [facility] CampusZigubynMDYSTQSCIX6070-32-32 08:17:00 Test Item Value Reference Range Interpretation Comments MCHC (test code = MCHC) 32.7 32.0-36.0 [facility] CampusQjhvwhpPLFXDORCYJ7084-77-60 08:17:00 Test Item Value Reference Range Interpretation Comments RDW (test code = RDW) 19.1 11.5-14.5 [facility] CampusIuvspbhKOSKKDZZVB9639-95-97 08:17:00 Test Item Value Reference Range Interpretation Comments Platelet (test code = Platelet) 71 133-450 [facility] CampusNrplfarVCCAOYGYTV2029-88-74 08:17:00 Test Item Value Reference Range Interpretation Comments MPV (test code = MPV) 9.9 7.4-10.4 [facility] CampusDubgdyhVBSYUKOFCR7341-94-27 08:17:00 Test Item Value Reference Range Interpretation Comments Segs (test code = Segs) 56.1 45.0-75.0 [facility] CampusIbvtnmhLBYPPUNUAV2670-78-32 08:17:00 Test Item Value Reference Range Interpretation Comments Lymphocytes (test code = Lymphocytes) 28.9 20.0-40.0 [facility] CampusKyxcxhoGAOLBSRLYF5555-85-46 08:17:00 Test Item Value Reference Range Interpretation Comments Monocytes (test code = Monocytes) 8.1 2.0-12.0 [facility] CampusNosnudiJUZUJXIARE1292-83-37 08:17:00 Test Item Value Reference Range Interpretation Comments Eosinophils (test code = 5.9 See_Comment [A utomated message] The Eosinophils) system which ge nerated this result tra nsmitted reference range : <=4.0. The reference r leo was not used to int erpret this result as normal/abnormal . [facility] CampusPsypbbbMICNUXFCCW1248-13-45 08:17:00 Test Item Value Reference Range Interpretation Comments Basophils (test code = 1.0 See_Comment [Aut omated message] The Basophils) system which ge nerated this result tra nsmitted reference range : <=1.0. The reference r leo was not used to int erpret this result as normal/abnormal . [facility] CampusQsomcjbCYZTLDSATV3038-78-75 08:17:00 Test Item Value Reference Range Interpretation Comments Neutrophils # (test code = Neutrophils 1.3 1.5-8.1 #) [place] 749491-08-11 08:17:00 Test Item Value Reference Range Interpretation Comments Lymphocytes # (test code = Lymphocytes 0.7 1.0-5.5 #) [place] 749491-08-11 08:17:00 Test Item Value Reference Range Interpretation Comments Monocytes # (test code 0.2 See_Comment [Aut omated message] The = Monocytes #) system which generated this result tra nsmitted reference range : <=0.8. The reference r leo was not used to int erpret this result as normal/abnormal . [place] 749491-08-11 08:17:00 Test Item Value Reference Range Interpretation Comments Eosinophils # (test code 0.1 See_Comment [A utomated message] The = Eosinophils #) system whic h generated this result tra nsmitted reference range : <=0.5. The reference r leo was not used to int erpret this result as normal/abnormal . [place] 804351-08-10 09:30:00 Test Item Value Reference Range Interpretation Comments Glucose Lvl (test code = Glucose Lvl) 61 70-99 [place] 804351-08-10 09:30:00 Test Item Value Reference Range Interpretation Comments BUN (test code = BUN) 13 7-22 [place] 804351-08-10 09:30:00 Test Item Value Reference Range Interpretation Comments Creatinine Lvl (test code = Creatinine 3.71 0.50-1.40 Lvl) [place] 804351-08-10 09:30:00 Test Item Value Reference Range Interpretation Comments Sodium Lvl (test code = Sodium Lvl) 136 135-145 [place] 804351-08-10 09:30:00 Test Item Value Reference Range Interpretation Comments Potassium Lvl (test code = Potassium 4.3 3.5-5.1 Lvl) [place] 804351-08-10 09:30:00 Test Item Value Reference Range Interpretation Comments Chloride Lvl (test code = Chloride Lvl) 103 95-109 [place] 804351-08-10 09:30:00 Test Item Value Reference Range Interpretation Comments CO2 (test code = CO2) 27 24-32 [place] 804351-08-10 09:30:00 Test Item Value Reference Range Interpretation Comments Calcium Lvl (test code = Calcium Lvl) 7.9 8.5-10.5 [place] 804351-08-10 09:30:00 Test Item Value Reference Range Interpretation Comments AGAP (test code = AGAP) 10.3 10.0-20.0 [place] 07[address]-08-10 09:30:00 Test Item Value Reference Range Interpretation Comments eGFR (test code = eGFR) 15 [place] 804351-08-10 09:30:00 Test Item Value Reference Range Interpretation Comments Magnesium Lvl (test code = Magnesium 2.3 1.8-2.4 Lvl) [place] 804351-08-10 09:30:00 Test Item Value Reference Range Interpretation Comments Phosphorus (test code = Phosphorus) 3.1 2.5-4.5 [place] 749491-08-10 09:30:00 Test Item Value Reference Range Interpretation Comments Segs (test code = Segs) 61.5 45.0-75.0 [place] 749491-08-10 09:30:00 Test Item Value Reference Range Interpretation Comments Lymphocytes (test code = Lymphocytes) 24.6 20.0-40.0 [place] [address]-08-10 09:30:00 Test Item Value Reference Range Interpretation Comments Monocytes (test code = Monocytes) 7.4 2.0-12.0 [place] 749491-08-10 09:30:00 Test Item Value Reference Range Interpretation Comments Eosinophils (test code = 5.5 See_Comment [A utomated message] The Eosinophils) system which ge nerated this result tra nsmitted reference range : <=4.0. The reference r leo was not used to int erpret this result as normal/abnormal . [place] 749491-08-10 09:30:00 Test Item Value Reference Range Interpretation Comments Basophils (test code = 1.0 See_Comment [Aut omated message] The Basophils) system which ge nerated this result tra nsmitted reference range : <=1.0. The reference r leo was not used to int erpret this result as normal/abnormal . [place] 749491-08-10 09:30:00 Test Item Value Reference Range Interpretation Comments Neutrophils # (test code = Neutrophils 1.6 1.5-8.1 #) [facility] CampusAiyvqswVPTKBARHYH9774-27-34 09:30:00 Test Item Value Reference Range Interpretation Comments Lymphocytes # (test code = Lymphocytes 0.6 1.0-5.5 #) [facility] CampusUtkpkguBNNLEGQFWL8969-24-38 09:30:00 Test Item Value Reference Range Interpretation Comments Monocytes # (test code 0.2 See_Comment [Aut omated message] The = Monocytes #) system which generated this result tra nsmitted reference range : <=0.8. The reference r leo was not used to int erpret this result as normal/abnormal . [place] 749491-08-10 09:30:00 Test Item Value Reference Range Interpretation Comments Eosinophils # (test code 0.1 See_Comment [A utomated message] The = Eosinophils #) system whic h generated this result tra nsmitted reference range : <=0.5. The reference r leo was not used to int erpret this result as normal/abnormal . [place] 749491-08-10 09:30:00 Test Item Value Reference Range Interpretation [...] studies, if clinically indicated, are recommended. CPT: 37012 [facility]QzkpvdoPKMGBAKPLH5505-41-26 09:30:00 Test Item Value Reference Range Interpretation Comments WBC (test code = WBC) 2.5 3.7-10.4 [place] [address]-08-10 09:30:00 Test Item Value Reference Range Interpretation Comments RBC (test code = RBC) 2.68 4.20-5.40 [place] [address]-08-10 09:30:00 Test Item Value Reference Range Interpretation Comments Hgb (test code = Hgb) 8.2 12.0-16.0 [place] 749491-08-10 09:30:00 Test Item Value Reference Range Interpretation Comments Hct (test code = Hct) 24.3 36.0-48.0 [place] 749491-08-10 09:30:00 Test Item Value Reference Range Interpretation Comments MCV (test code = MCV) 90.9 80.0-98.0 [place] 749491-08-10 09:30:00 Test Item Value Reference Range Interpretation Comments MCH (test code = MCH) 30.5 pg 27.0-31.0 [place] 749491-08-10 09:30:00 Test Item Value Reference Range Interpretation Comments MCHC (test code = MCHC) 33.6 32.0-36.0 [place] [address]-08-10 09:30:00 Test Item Value Reference Range Interpretation Comments RDW (test code = RDW) 19.4 11.5-14.5 [place] 749491-08-10 09:30:00 Test Item Value Reference Range Interpretation Comments Platelet (test code = Platelet) 70 133-450 [place] 749491-08-10 09:30:00 Test Item Value Reference Range Interpretation Comments MPV (test code = MPV) 10.7 7.4-10.4 [place] 804351-08-10 09:30:00 Test Item Value Reference Range Interpretation Comments Glucose Lvl (test code = Glucose Lvl) 61 70-99 [place] 804351-08-10 09:30:00 Test Item Value Reference Range Interpretation Comments BUN (test code = BUN) 13 7-22 [place] 804351-08-10 09:30:00 Test Item Value Reference Range Interpretation Comments Creatinine Lvl (test code = Creatinine 3.71 0.50-1.40 Lvl) [place] 804351-08-10 09:30:00 Test Item Value Reference Range Interpretation Comments Sodium Lvl (test code = Sodium Lvl) 136 135-145 [place] 804351-08-10 09:30:00 Test Item Value Reference Range Interpretation Comments Potassium Lvl (test code = Potassium 4.3 3.5-5.1 Lvl) [place] 804351-08-10 09:30:00 Test Item Value Reference Range Interpretation Comments Chloride Lvl (test code = Chloride Lvl) 103 95-109 [place] [address]-08-10 09:30:00 Test Item Value Reference Range Interpretation Comments CO2 (test code = CO2) 27 24-32 [place] [address]-08-10 09:30:00 Test Item Value Reference Range Interpretation Comments Calcium Lvl (test code = Calcium Lvl) 7.9 8.5-10.5 [place] 804351-08-10 09:30:00 Test Item Value Reference Range Interpretation Comments AGAP (test code = AGAP) 10.3 10.0-20.0 [address]08-10 09:30:00 Test Item Value Reference Range Interpretation Comments eGFR (test code = eGFR) 15 [place] [address]-08-10 09:30:00 Test Item Value Reference Range Interpretation Comments Magnesium Lvl (test code = Magnesium 2.3 1.8-2.4 Lvl) [place] [address]-08-10 09:30:00 Test Item Value Reference Range Interpretation Comments Phosphorus (test code = Phosphorus) 3.1 2.5-4.5 [place] [address]-08-10 09:30:00 Test Item Value Reference Range Interpretation Comments Segs (test code = Segs) 61.5 45.0-75.0 [place] [address]-08-10 09:30:00 Test Item Value Reference Range Interpretation Comments Lymphocytes (test code = Lymphocytes) 24.6 20.0-40.0 [place] [address]-08-10 09:30:00 Test Item Value Reference Range Interpretation Comments Monocytes (test code = Monocytes) 7.4 2.0-12.0 [place] [address]-08-10 09:30:00 Test Item Value Reference Range Interpretation Comments Eosinophils (test code = 5.5 See_Comment [A utomated message] The Eosinophils) system which ge nerated this result tra nsmitted reference range : <=4.0. The reference r leo was not used to int erpret this result as normal/abnormal . [place] [address]-08-10 09:30:00 Test Item Value Reference Range Interpretation Comments Basophils (test code = 1.0 See_Comment [Aut omated message] The Basophils) system which ge nerated this result tra nsmitted reference range : <=1.0. The reference r leo was not used to int erpret this result as normal/abnormal . [place] 749491-08-10 09:30:00 Test Item Value Reference Range Interpretation Comments Neutrophils # (test code = Neutrophils 1.6 1.5-8.1 #) [place] 749491-08-10 09:30:00 Test Item Value Reference Range Interpretation Comments Lymphocytes # (test code = Lymphocytes 0.6 1.0-5.5 #) [place] 749491-08-10 09:30:00 Test Item Value Reference Range Interpretation Comments Monocytes # (test code 0.2 See_Comment [Aut omated message] The = Monocytes #) system which generated this result tra nsmitted reference range : <=0.8. The reference r leo was not used to int erpret this result as normal/abnormal . [place] 749491-08-10 09:30:00 Test Item Value Reference Range Interpretation Comments Eosinophils # (test code 0.1 See_Comment [A utomated message] The = Eosinophils #) system whic h generated this result tra nsmitted reference range : <=0.5. The reference r leo was not used to int erpret this result as normal/abnormal . [facility]PkwgqxcSXFBTPSUPV8124-91-68 09:30:00 Test Item Value Reference Range Interpretation [...] studies, if clinically indicated, are recommended. CPT: 15657 [place] 749491-08-10 09:30:00 Test Item Value Reference Range Interpretation Comments WBC (test code = WBC) 2.5 3.7-10.4 [place] 749491-08-10 09:30:00 Test Item Value Reference Range Interpretation Comments RBC (test code = RBC) 2.68 4.20-5.40 [place] [address]-08-10 09:30:00 Test Item Value Reference Range Interpretation Comments Hgb (test code = Hgb) 8.2 12.0-16.0 [place] 749491-08-10 09:30:00 Test Item Value Reference Range Interpretation Comments Hct (test code = Hct) 24.3 36.0-48.0 [place] 749491-08-10 09:30:00 Test Item Value Reference Range Interpretation Comments MCV (test code = MCV) 90.9 80.0-98.0 [place] 749491-08-10 09:30:00 Test Item Value Reference Range Interpretation Comments MCH (test code = MCH) 30.5 pg 27.0-31.0 [place] 749491-08-10 09:30:00 Test Item Value Reference Range Interpretation Comments MCHC (test code = MCHC) 33.6 32.0-36.0 [place] 749491-08-10 09:30:00 Test Item Value Reference Range Interpretation Comments RDW (test code = RDW) 19.4 11.5-14.5 [place] [address]-08-10 09:30:00 Test Item Value Reference Range Interpretation Comments Platelet (test code = Platelet) 70 133-450 [place] 749491-08-10 09:30:00 Test Item Value Reference Range Interpretation Comments MPV (test code = MPV) 10.7 7.4-10.4 [place] 804351-08-10 09:30:00 Test Item Value Reference Range Interpretation Comments Glucose Lvl (test code = Glucose Lvl) 61 70-99 [place] 804351-08-10 09:30:00 Test Item Value Reference Range Interpretation Comments BUN (test code = BUN) 13 7-22 [place] 804351-08-10 09:30:00 Test Item Value Reference Range Interpretation Comments Creatinine Lvl (test code = Creatinine 3.71 0.50-1.40 Lvl) [place] 804351-08-10 09:30:00 Test Item Value Reference Range Interpretation Comments Sodium Lvl (test code = Sodium Lvl) 136 135-145 [place] 804351-08-10 09:30:00 Test Item Value Reference Range Interpretation Comments Potassium Lvl (test code = Potassium 4.3 3.5-5.1 Lvl) [place] 804351-08-10 09:30:00 Test Item Value Reference Range Interpretation Comments Chloride Lvl (test code = Chloride Lvl) 103 95-109 [place] 804351-08-10 09:30:00 Test Item Value Reference Range Interpretation Comments CO2 (test code = CO2) 27 24-32 [place] 804351-08-10 09:30:00 Test Item Value Reference Range Interpretation Comments Calcium Lvl (test code = Calcium Lvl) 7.9 8.5-10.5 [place] 804351-08-10 09:30:00 Test Item Value Reference Range Interpretation Comments AGAP (test code = AGAP) 10.3 10.0-20.0 [place] 804351-08-10 09:30:00 Test Item Value Reference Range Interpretation Comments eGFR (test code = eGFR) 15 [place] 804351-08-10 09:30:00 Test Item Value Reference Range Interpretation Comments Magnesium Lvl (test code = Magnesium 2.3 1.8-2.4 Lvl) [place] 804351-08-10 09:30:00 Test Item Value Reference Range Interpretation Comments Phosphorus (test code = Phosphorus) 3.1 2.5-4.5 [place] 749491-08-10 09:30:00 Test Item Value Reference Range Interpretation Comments Segs (test code = Segs) 61.5 45.0-75.0 [place] 749491-08-10 09:30:00 Test Item Value Reference Range Interpretation Comments Lymphocytes (test code = Lymphocytes) 24.6 20.0-40.0 [place] [address]-08-10 09:30:00 Test Item Value Reference Range Interpretation Comments Monocytes (test code = Monocytes) 7.4 2.0-12.0 [place] 749491-08-10 09:30:00 Test Item Value Reference Range Interpretation Comments Eosinophils (test code = 5.5 See_Comment [A utomated message] The Eosinophils) system which ge nerated this result tra nsmitted reference range : <=4.0. The reference r leo was not used to int erpret this result as normal/abnormal . [place] 749491-08-10 09:30:00 Test Item Value Reference Range Interpretation Comments Basophils (test code = 1.0 See_Comment [Aut omated message] The Basophils) system which ge nerated this result tra nsmitted reference range : <=1.0. The reference r leo was not used to int erpret this result as normal/abnormal . [facility] CampusVnsyylePFIDFNFQYG5350-46-14 09:30:00 Test Item Value Reference Range Interpretation Comments Neutrophils # (test code = Neutrophils 1.6 1.5-8.1 #) [facility] CampusLldbozkJYZLUPZJCX4394-77-55 09:30:00 Test Item Value Reference Range Interpretation Comments Lymphocytes # (test code = Lymphocytes 0.6 1.0-5.5 #) [place] 749491-08-10 09:30:00 Test Item Value Reference Range Interpretation Comments Monocytes # (test code 0.2 See_Comment [Aut omated message] The = Monocytes #) system which generated this result tra nsmitted reference range : <=0.8. The reference r leo was not used to int erpret this result as normal/abnormal . [facility] CampusJkuzztjGDZXGZOHOI7668-09-60 09:30:00 Test Item Value Reference Range Interpretation Comments Eosinophils # (test code 0.1 See_Comment [A utomated message] The = Eosinophils #) system whic h generated this result tra nsmitted reference range : <=0.5. The reference r leo was not used to int erpret this result as normal/abnormal . [facility] CampusLcybaahQXLQSYKJWD1940-99-41 09:30:00 Test Item Value Reference Range Interpretation [...] studies, if clinically indicated, are recommended. CPT: 45533 [place] 749491-08-10 09:30:00 Test Item Value Reference Range Interpretation Comments WBC (test code = WBC) 2.5 3.7-10.4 [facility] CampusCbknlldFUUZQBVRDK7624-71-79 09:30:00 Test Item Value Reference Range Interpretation Comments RBC (test code = RBC) 2.68 4.20-5.40 [facility] CampusBukedmfDFMMIUOAKK9445-34-18 09:30:00 Test Item Value Reference Range Interpretation Comments Hgb (test code = Hgb) 8.2 12.0-16.0 [facility] CampusRoguyliJJVFTJYFXB6125-42-96 09:30:00 Test Item Value Reference Range Interpretation Comments Hct (test code = Hct) 24.3 36.0-48.0 [facility] CampusSwqdanmOVCKVDCHKV6463-98-47 09:30:00 Test Item Value Reference Range Interpretation Comments MCV (test code = MCV) 90.9 80.0-98.0 [facility] CampusQqmmgciJCKXWIRIGL5304-23-66 09:30:00 Test Item Value Reference Range Interpretation Comments MCH (test code = MCH) 30.5 pg 27.0-31.0 [facility] CampusKhidljpXXDQPYAPVQ0455-90-78 09:30:00 Test Item Value Reference Range Interpretation Comments MCHC (test code = MCHC) 33.6 32.0-36.0 [facility] CampusHkntuwuDUMRYNPSSD7170-04-64 09:30:00 Test Item Value Reference Range Interpretation Comments RDW (test code = RDW) 19.4 11.5-14.5 [facility] CampusAqbkdzlTFOWLABMUH6540-77-49 09:30:00 Test Item Value Reference Range Interpretation Comments Platelet (test code = Platelet) 70 133-450 [facility] CampusMlugexfSAUVXQGVIT4818-14-26 09:30:00 Test Item Value Reference Range Interpretation Comments MPV (test code = MPV) 10.7 7.4-10.4 [facility]2021-08-10 09:30:00 Test Item Value Reference Range Interpretation Comments Glucose Lvl (test code = Glucose Lvl) 61 70-99 [facility]2021-08-10 09:30:00 Test Item Value Reference Range Interpretation Comments BUN (test code = BUN) 13 7-22 [facility]2021-08-10 09:30:00 Test Item Value Reference Range Interpretation Comments Creatinine Lvl (test code = Creatinine 3.71 0.50-1.40 Lvl) [facility]2021-08-10 09:30:00 Test Item Value Reference Range Interpretation Comments Sodium Lvl (test code = Sodium Lvl) 136 135-145 [place] 804351-08-10 09:30:00 Test Item Value Reference Range Interpretation Comments Potassium Lvl (test code = Potassium 4.3 3.5-5.1 Lvl) [place] 804351-08-10 09:30:00 Test Item Value Reference Range Interpretation Comments Chloride Lvl (test code = Chloride Lvl) 103 95-109 [place] 804351-08-10 09:30:00 Test Item Value Reference Range Interpretation Comments CO2 (test code = CO2) 27 24-32 [place] 804351-08-10 09:30:00 Test Item Value Reference Range Interpretation Comments Calcium Lvl (test code = Calcium Lvl) 7.9 8.5-10.5 [place] 804351-08-10 09:30:00 Test Item Value Reference Range Interpretation Comments AGAP (test code = AGAP) 10.3 10.0-20.0 [place] [address]-08-10 09:30:00 Test Item Value Reference Range Interpretation Comments eGFR (test code = eGFR) 15 [place] 804351-08-10 09:30:00 Test Item Value Reference Range Interpretation Comments Magnesium Lvl (test code = Magnesium 2.3 1.8-2.4 Lvl) [place] 804351-08-10 09:30:00 Test Item Value Reference Range Interpretation Comments Phosphorus (test code = Phosphorus) 3.1 2.5-4.5 [place] 749491-08-10 09:30:00 Test Item Value Reference Range Interpretation Comments Segs (test code = Segs) 61.5 45.0-75.0 [place] [address]-08-10 09:30:00 Test Item Value Reference Range Interpretation Comments Lymphocytes (test code = Lymphocytes) 24.6 20.0-40.0 [place] [address]-08-10 09:30:00 Test Item Value Reference Range Interpretation Comments Monocytes (test code = Monocytes) 7.4 2.0-12.0 [place] [address]-08-10 09:30:00 Test Item Value Reference Range Interpretation Comments Eosinophils (test code = 5.5 See_Comment [A utomated message] The Eosinophils) system which ge nerated this result tra nsmitted reference range : <=4.0. The reference r leo was not used to int erpret this result as normal/abnormal . [place] 749491-08-10 09:30:00 Test Item Value Reference Range Interpretation Comments Basophils (test code = 1.0 See_Comment [Aut omated message] The Basophils) system which ge nerated this result tra nsmitted reference range : <=1.0. The reference r leo was not used to int erpret this result as normal/abnormal . [place] 749491-08-10 09:30:00 Test Item Value Reference Range Interpretation Comments Neutrophils # (test code = Neutrophils 1.6 1.5-8.1 #) [place] 749491-08-10 09:30:00 Test Item Value Reference Range Interpretation Comments Lymphocytes # (test code = Lymphocytes 0.6 1.0-5.5 #) [place] 749491-08-10 09:30:00 Test Item Value Reference Range Interpretation Comments Monocytes # (test code 0.2 See_Comment [Aut omated message] The = Monocytes #) system which generated this result tra nsmitted reference range : <=0.8. The reference r leo was not used to int erpret this result as normal/abnormal . [place] 749491-08-10 09:30:00 Test Item Value Reference Range Interpretation Comments Eosinophils # (test code 0.1 See_Comment [A utomated message] The = Eosinophils #) system [facility] generated this result tra nsmitted reference range : <=0.5. The reference r leo was not used to int erpret this result as normal/abnormal . [facility] CampusXfqnvyzKAZUDINEZK4390-17-37 09:30:00 Test Item Value Reference Range Interpretation [...] studies, if clinically indicated, are recommended. CPT: 76191 [facility] CampusUgsnrucNPXXHXQKBX6477-63-58 09:30:00 Test Item Value Reference Range Interpretation Comments WBC (test code = WBC) 2.5 3.7-10.4 [place] 749491-08-10 09:30:00 Test Item Value Reference Range Interpretation Comments RBC (test code = RBC) 2.68 4.20-5.40 [facility] CampusChmvpmpWUEKUHRBLC1096-29-68 09:30:00 Test Item Value Reference Range Interpretation Comments Hgb (test code = Hgb) 8.2 12.0-16.0 [place] 749491-08-10 09:30:00 Test Item Value Reference Range Interpretation Comments Hct (test code = Hct) 24.3 36.0-48.0 [place] 749491-08-10 09:30:00 Test Item Value Reference Range Interpretation Comments MCV (test code = MCV) 90.9 80.0-98.0 [place] 749491-08-10 09:30:00 Test Item Value Reference Range Interpretation Comments MCH (test code = MCH) 30.5 pg 27.0-31.0 [facility] CampusZzoiscmVGUBNXRHTR5765-58-65 09:30:00 Test Item Value Reference Range Interpretation Comments MCHC (test code = MCHC) 33.6 32.0-36.0 [place] 749491-08-10 09:30:00 Test Item Value Reference Range Interpretation Comments RDW (test code = RDW) 19.4 11.5-14.5 [place] 749491-08-10 09:30:00 Test Item Value Reference Range Interpretation Comments Platelet (test code = Platelet) 70 133-450 [facility] CampusWxcxaeuAIHJMRVYKU4481-80-83 09:30:00 Test Item Value Reference Range Interpretation Comments MPV (test code = MPV) 10.7 7.4-10.4 [facility]2021-08-10 09:30:00 Test Item Value Reference Range Interpretation Comments Glucose Lvl (test code = Glucose Lvl) 61 70-99 [place] 804351-08-10 09:30:00 Test Item Value Reference Range Interpretation Comments BUN (test code = BUN) 13 7-22 [place] [address]-08-10 09:30:00 Test Item Value Reference Range Interpretation Comments Creatinine Lvl (test code = Creatinine 3.71 0.50-1.40 Lvl) [place] 804351-08-10 09:30:00 Test Item Value Reference Range Interpretation Comments Sodium Lvl (test code = Sodium Lvl) 136 135-145 [place] 804351-08-10 09:30:00 Test Item Value Reference Range Interpretation Comments Potassium Lvl (test code = Potassium 4.3 3.5-5.1 Lvl) [place] 804351-08-10 09:30:00 Test Item Value Reference Range Interpretation Comments Chloride Lvl (test code = Chloride Lvl) 103 95-109 [place] 804351-08-10 09:30:00 Test Item Value Reference Range Interpretation Comments CO2 (test code = CO2) 27 24-32 [place] 804351-08-10 09:30:00 Test Item Value Reference Range Interpretation Comments Calcium Lvl (test code = Calcium Lvl) 7.9 8.5-10.5 [place] 804351-08-10 09:30:00 Test Item Value Reference Range Interpretation Comments AGAP (test code = AGAP) 10.3 10.0-20.0 [place] 804351-08-10 09:30:00 Test Item Value Reference Range Interpretation Comments eGFR (test code = eGFR) 15 [place] 804351-08-10 09:30:00 Test Item Value Reference Range Interpretation Comments Magnesium Lvl (test code = Magnesium 2.3 1.8-2.4 Lvl) [place] 804351-08-10 09:30:00 Test Item Value Reference Range Interpretation Comments Phosphorus (test code = Phosphorus) 3.1 2.5-4.5 [place] 749491-08-10 09:30:00 Test Item Value Reference Range Interpretation Comments Segs (test code = Segs) 61.5 45.0-75.0 [place] 749491-08-10 09:30:00 Test Item Value Reference Range Interpretation Comments Lymphocytes (test code = Lymphocytes) 24.6 20.0-40.0 [place] 749491-08-10 09:30:00 Test Item Value Reference Range Interpretation Comments Monocytes (test code = Monocytes) 7.4 2.0-12.0 [place] [address]-08-10 09:30:00 Test Item Value Reference Range Interpretation Comments Eosinophils (test code = 5.5 See_Comment [A utomated message] The Eosinophils) system which ge nerated this result tra nsmitted reference range : <=4.0. The reference r leo was not used to int erpret this result as normal/abnormal . [place] 749491-08-10 09:30:00 Test Item Value Reference Range Interpretation Comments Basophils (test code = 1.0 See_Comment [Aut omated message] The Basophils) system which ge nerated this result tra nsmitted reference range : <=1.0. The reference r leo was not used to int erpret this result as normal/abnormal . [place] [address]-08-10 09:30:00 Test Item Value Reference Range Interpretation Comments Neutrophils # (test code = Neutrophils 1.6 1.5-8.1 #) [place] 749491-08-10 09:30:00 Test Item Value Reference Range Interpretation Comments Lymphocytes # (test code = Lymphocytes 0.6 1.0-5.5 #) [place] 749491-08-10 09:30:00 Test Item Value Reference Range Interpretation Comments Monocytes # (test code 0.2 See_Comment [Aut omated message] The = Monocytes #) system which generated this result tra nsmitted reference range : <=0.8. The reference r leo was not used to int erpret this result as normal/abnormal . [place] 749491-08-10 09:30:00 Test Item Value Reference Range Interpretation Comments Eosinophils # (test code 0.1 See_Comment [A utomated message] The = Eosinophils #) system ic h generated this result tra nsmitted reference range : <=0.5. The reference r leo was not used to int erpret this result as normal/abnormal . [place] 749491-08-10 09:30:00 Test Item Value Reference Range Interpretation [...] studies, if clinically indicated, are recommended. CPT: 08981 [facility] CampusZoesqoeCJIUFWYRSQ3483-84-19 09:30:00 Test Item Value Reference Range Interpretation Comments WBC (test code = WBC) 2.5 3.7-10.4 [facility] CampusAozcyaeUMQJRTFGLH0442-33-35 09:30:00 Test Item Value Reference Range Interpretation Comments RBC (test code = RBC) 2.68 4.20-5.40 [facility] CampusBamrysbDNTZJODFRK5237-78-12 09:30:00 Test Item Value Reference Range Interpretation Comments Hgb (test code = Hgb) 8.2 12.0-16.0 [facility] CampusDgqvwauFXRKZXPKHB3987-31-65 09:30:00 Test Item Value Reference Range Interpretation Comments Hct (test code = Hct) 24.3 36.0-48.0 [facility] CampusGhafnknVAQDHFPTEW7935-33-14 09:30:00 Test Item Value Reference Range Interpretation Comments MCV (test code = MCV) 90.9 80.0-98.0 [facility] CampusMdzuituWTFNNRMZZR0807-47-93 09:30:00 Test Item Value Reference Range Interpretation Comments MCH (test code = MCH) 30.5 pg 27.0-31.0 [facility] CampusOzmzjyjEUEPPSCSCM6140-19-68 09:30:00 Test Item Value Reference Range Interpretation Comments MCHC (test code = MCHC) 33.6 32.0-36.0 [facility] CampusCnblkuuMEKWXOSUGI7877-67-56 09:30:00 Test Item Value Reference Range Interpretation Comments RDW (test code = RDW) 19.4 11.5-14.5 [place] 749491-08-10 09:30:00 Test Item Value Reference Range Interpretation Comments Platelet (test code = Platelet) 70 133-450 [facility] CampusAbimdwpAXJRCCYNHM9084-22-23 09:30:00 Test Item Value Reference Range Interpretation Comments MPV (test code = MPV) 10.7 7.4-10.4 [facility]2021-08-09 05:10:00 Test Item Value Reference Range Interpretation Comments Glucose Lvl (test code = Glucose Lvl) 69 70-99 [place] 804351-08-09 05:10:00 Test Item Value Reference Range Interpretation Comments BUN (test code = BUN) 29 7-22 [place] 804351-08-09 05:10:00 Test Item Value Reference Range Interpretation Comments Creatinine Lvl (test code = Creatinine 5.14 0.50-1.40 Lvl) [place] 804351-08-09 05:10:00 Test Item Value Reference Range Interpretation Comments Sodium Lvl (test code = Sodium Lvl) 134 135-145 [place] 804351-08-09 05:10:00 Test Item Value Reference Range Interpretation Comments Potassium Lvl (test code = Potassium 5.1 3.5-5.1 Lvl) [place] 804351-08-09 05:10:00 Test Item Value Reference Range Interpretation Comments Chloride Lvl (test code = Chloride Lvl) 98 95-109 [place] 804351-08-09 05:10:00 Test Item Value Reference Range Interpretation Comments CO2 (test code = CO2) 29 24-32 [place] 804351-08-09 05:10:00 Test Item Value Reference Range Interpretation Comments Calcium Lvl (test code = Calcium Lvl) 7.6 8.5-10.5 [facility]2021-08-09 05:10:00 Test Item Value Reference Range Interpretation Comments AGAP (test code = AGAP) 12.1 10.0-20.0 [place] 804351-08-09 05:10:00 Test Item Value Reference Range Interpretation Comments eGFR (test code = eGFR) 10 [place] 804351-08-09 05:10:00 Test Item Value Reference Range Interpretation Comments Magnesium Lvl (test code = Magnesium 2.3 1.8-2.4 Lvl) [place] 804351-08-09 05:10:00 Test Item Value Reference Range Interpretation Comments Phosphorus (test code = Phosphorus) 5.0 2.5-4.5 [place] 749491-08-09 05:10:00 Test Item Value Reference Range Interpretation Comments WBC (test code = WBC) 2.7 3.7-10.4 [place] 749491-08-09 05:10:00 Test Item Value Reference Range Interpretation Comments RBC (test code = RBC) 2.80 4.20-5.40 [facility]KhivhvyYTYHAVMJCQ4717-70-96 05:10:00 Test Item Value Reference Range Interpretation Comments Hgb (test code = Hgb) 8.5 12.0-16.0 [facility] CampusPjjupmzVWATARJWEO7455-59-87 05:10:00 Test Item Value Reference Range Interpretation Comments Hct (test code = Hct) 25.7 36.0-48.0 [facility] CampusZosysdhPJVMSCTSOD7339-30-76 05:10:00 Test Item Value Reference Range Interpretation Comments MCV (test code = MCV) 91.7 80.0-98.0 [facility] CampusZucdoovDWFZMHWEOM5748-90-04 05:10:00 Test Item Value Reference Range Interpretation Comments MCH (test code = MCH) 30.4 pg 27.0-31.0 [facility] CampusLaunftnESYUQWYADR8614-88-68 05:10:00 Test Item Value Reference Range Interpretation Comments MCHC (test code = MCHC) 33.1 32.0-36.0 [facility] CampusUcpxgcnWBMBXJWIYO6379-44-66 05:10:00 Test Item Value Reference Range Interpretation Comments RDW (test code = RDW) 19.2 11.5-14.5 [facility] CampusAuwgyjfOEVHTINTJU8041-69-84 05:10:00 Test Item Value Reference Range Interpretation Comments Platelet (test code = Platelet) 72 133-450 [facility] CampusUwwjdtmQGOISVHSEU5616-20-26 05:10:00 Test Item Value Reference Range Interpretation Comments MPV (test code = MPV) 9.9 7.4-10.4 [facility] CampusMwpcldpGYEBVHNGNA3877-54-11 05:10:00 Test Item Value Reference Range Interpretation Comments Segs (test code = Segs) 72.6 45.0-75.0 [facility] CampusOzzyripLEABEXDTRV7306-17-40 05:10:00 Test Item Value Reference Range Interpretation Comments Lymphocytes (test code = Lymphocytes) 15.9 20.0-40.0 [facility] CampusVhxvnykXNIXFKKYWT6553-39-31 05:10:00 Test Item Value Reference Range Interpretation Comments Monocytes (test code = Monocytes) 7.3 2.0-12.0 [facility] CampusEdokojfNUFNPGBFYS2565-70-91 05:10:00 Test Item Value Reference Range Interpretation Comments Eosinophils (test code = 3.4 See_Comment [A utomated message] The Eosinophils) system which ge nerated this result tra nsmitted reference range : <=4.0. The reference r leo was not used to int erpret this result as normal/abnormal . [facility] CampusEtiwjyoZJZIVARBPU0677-89-34 05:10:00 Test Item Value Reference Range Interpretation Comments Basophils (test code = 0.8 See_Comment [Aut omated message] The Basophils) system which ge nerated this result tra nsmitted reference range : <=1.0. The reference r leo was not used to int erpret this result as normal/abnormal . [facility] CampusEwfmqwvMNSIJJXHTD9448-30-01 05:10:00 Test Item Value Reference Range Interpretation Comments Neutrophils # (test code = Neutrophils 1.9 1.5-8.1 #) [facility] CampusNaeaxjfVFWXEBLUEK7374-94-84 05:10:00 Test Item Value Reference Range Interpretation Comments Lymphocytes # (test code = Lymphocytes 0.4 1.0-5.5 #) [facility] CampusKtvnsruNVHUZUWVJS0766-61-12 05:10:00 Test Item Value Reference Range Interpretation Comments Monocytes # (test code 0.2 See_Comment [Aut omated message] The = Monocytes #) system which generated this result tra nsmitted reference range : <=0.8. The reference r leo was not used to int erpret this result as normal/abnormal . [facility] CampusGmdbcsdUCWVBGJDDK4760-87-60 05:10:00 Test Item Value Reference Range Interpretation Comments Eosinophils # (test code 0.1 See_Comment [A utomated message] The = Eosinophils #) system whic h generated this result tra nsmitted reference range : <=0.5. The reference r leo was not used to int erpret this result as normal/abnormal . [facility]ATH[facility] HHFDHCH1926-85-94 05:10:00 Test Item Value Reference Range Interpretation Comments Ca Ion WB (test code = Ca Ion WB) 1.10 1.05-1.25 [facility] KNYZFPN2503-60-12 05:10:00 Test Item Value Reference Range Interpretation Comments Ca Norm WB (test code = Ca Norm WB) 1.06 1.05-1.25 [facility] PKNXQ7234-07-29 05:10:00 Test Item Value Reference Range Interpretation Comments Glucose Lvl (test code = Glucose Lvl) 69 70-99 [place] 804351-08-09 05:10:00 Test Item Value Reference Range Interpretation Comments BUN (test code = BUN) 29 7-22 [place] 804351-08-09 05:10:00 Test Item Value Reference Range Interpretation Comments Creatinine Lvl (test code = Creatinine 5.14 0.50-1.40 Lvl) [place] 804351-08-09 05:10:00 Test Item Value Reference Range Interpretation Comments Sodium Lvl (test code = Sodium Lvl) 134 135-145 [place] 804351-08-09 05:10:00 Test Item Value Reference Range Interpretation Comments Potassium Lvl (test code = Potassium 5.1 3.5-5.1 Lvl) [place] 804351-08-09 05:10:00 Test Item Value Reference Range Interpretation Comments Chloride Lvl (test code = Chloride Lvl) 98 95-109 [place] 804351-08-09 05:10:00 Test Item Value Reference Range Interpretation Comments CO2 (test code = CO2) 29 24-32 [place] 804351-08-09 05:10:00 Test Item Value Reference Range Interpretation Comments Calcium Lvl (test code = Calcium Lvl) 7.6 8.5-10.5 [facility]2021-08-09 05:10:00 Test Item Value Reference Range Interpretation Comments AGAP (test code = AGAP) 12.1 10.0-20.0 [place] 804351-08-09 05:10:00 Test Item Value Reference Range Interpretation Comments eGFR (test code = eGFR) 10 [place] 804351-08-09 05:10:00 Test Item Value Reference Range Interpretation Comments Magnesium Lvl (test code = Magnesium 2.3 1.8-2.4 Lvl) [place] 804351-08-09 05:10:00 Test Item Value Reference Range Interpretation Comments Phosphorus (test code = Phosphorus) 5.0 2.5-4.5 [place] 749491-08-09 05:10:00 Test Item Value Reference Range Interpretation Comments WBC (test code = WBC) 2.7 3.7-10.4 [place] 749491-08-09 05:10:00 Test Item Value Reference Range Interpretation Comments RBC (test code = RBC) 2.80 4.20-5.40 [facility] CampusTxojberTHAYIHCZOB8727-57-16 05:10:00 Test Item Value Reference Range Interpretation Comments Hgb (test code = Hgb) 8.5 12.0-16.0 [facility] CampusKebjzotVZPWZNTMJJ6581-46-61 05:10:00 Test Item Value Reference Range Interpretation Comments Hct (test code = Hct) 25.7 36.0-48.0 [facility] CampusGvdjjrhOGRRLEOKMY1719-32-81 05:10:00 Test Item Value Reference Range Interpretation Comments MCV (test code = MCV) 91.7 80.0-98.0 [facility] CampusWolbgpoNZNZIVVIBZ8587-02-06 05:10:00 Test Item Value Reference Range Interpretation Comments MCH (test code = MCH) 30.4 pg 27.0-31.0 [facility] CampusSzzpjhuDOWIOBMHVY1431-40-68 05:10:00 Test Item Value Reference Range Interpretation Comments MCHC (test code = MCHC) 33.1 32.0-36.0 [facility] CampusHihbaetGYXVBOCYGX0044-74-76 05:10:00 Test Item Value Reference Range Interpretation Comments RDW (test code = RDW) 19.2 11.5-14.5 [facility] CampusXfggyitCYAQCOCHCN2120-83-34 05:10:00 Test Item Value Reference Range Interpretation Comments Platelet (test code = Platelet) 72 133-450 [facility] CampusJbqyxlkOEQVKEPKMP5813-28-29 05:10:00 Test Item Value Reference Range Interpretation Comments MPV (test code = MPV) 9.9 7.4-10.4 [facility] CampusLvugtfvTHZOHDUPZT6873-67-82 05:10:00 Test Item Value Reference Range Interpretation Comments Segs (test code = Segs) 72.6 45.0-75.0 [facility] CampusAjfmnmoCBNEHUXSVE7814-83-20 05:10:00 Test Item Value Reference Range Interpretation Comments Lymphocytes (test code = Lymphocytes) 15.9 20.0-40.0 [facility] CampusZdgdebfGWLRAHUVEU4712-59-22 05:10:00 Test Item Value Reference Range Interpretation Comments Monocytes (test code = Monocytes) 7.3 2.0-12.0 [facility] CampusEefzmktMZWJIOYCIU4616-06-64 05:10:00 Test Item Value Reference Range Interpretation Comments Eosinophils (test code = 3.4 See_Comment [A utomated message] The Eosinophils) system which ge nerated this result tra nsmitted reference range : <=4.0. The reference r leo was not used to int erpret this result as normal/abnormal . [facility] CampusZbrkvnoISINYZTOHE0922-66-34 05:10:00 Test Item Value Reference Range Interpretation Comments Basophils (test code = 0.8 See_Comment [Aut omated message] The Basophils) system which ge nerated this result tra nsmitted reference range : <=1.0. The reference r leo was not used to int erpret this result as normal/abnormal . [facility] CampusIxeksmtYYZCZOZVDS8233-03-63 05:10:00 Test Item Value Reference Range Interpretation Comments Neutrophils # (test code = Neutrophils 1.9 1.5-8.1 #) [facility] CampusAnfnxuoOIDHSMPGMV9768-49-98 05:10:00 Test Item Value Reference Range Interpretation Comments Lymphocytes # (test code = Lymphocytes 0.4 1.0-5.5 #) [facility] CampusOduvhxvJKOHQJKOKK1782-73-71 05:10:00 Test Item Value Reference Range Interpretation Comments Monocytes # (test code 0.2 See_Comment [Aut omated message] The = Monocytes #) system which generated this result tra nsmitted reference range : <=0.8. The reference r leo was not used to int erpret this result as normal/abnormal . [facility] CampusSyhesxdUNLUFYCZSB2397-49-89 05:10:00 Test Item Value Reference Range Interpretation Comments Eosinophils # (test code 0.1 See_Comment [A utomated message] The = Eosinophils #) system whic h generated this result tra nsmitted reference range : <=0.5. The reference r leo was not used to int erpret this result as normal/abnormal . [facility] HospitalATHYROID AQOTWQV1388-18-52 05:10:00 Test Item Value Reference Range Interpretation Comments Ca Ion WB (test code = Ca Ion WB) 1.10 1.05-1.25 [facility]RO[facility] LZCNQTF3730-72-47 05:10:00 Test Item Value Reference Range Interpretation Comments Ca Norm WB (test code = Ca Norm WB) 1.06 1.05-1.25 [facility]CHE[facility] PCEBQ0545-07-27 05:10:00 Test Item Value Reference Range Interpretation Comments Glucose Lvl (test code = Glucose Lvl) 69 70-99 [place] 804351-08-09 05:10:00 Test Item Value Reference Range Interpretation Comments BUN (test code = BUN) 29 7-22 [place] 804351-08-09 05:10:00 Test Item Value Reference Range Interpretation Comments Creatinine Lvl (test code = Creatinine 5.14 0.50-1.40 Lvl) [place] 804351-08-09 05:10:00 Test Item Value Reference Range Interpretation Comments Sodium Lvl (test code = Sodium Lvl) 134 135-145 [place] 804351-08-09 05:10:00 Test Item Value Reference Range Interpretation Comments Potassium Lvl (test code = Potassium 5.1 3.5-5.1 Lvl) [place] 804351-08-09 05:10:00 Test Item Value Reference Range Interpretation Comments Chloride Lvl (test code = Chloride Lvl) 98 95-109 [place] 804351-08-09 05:10:00 Test Item Value Reference Range Interpretation Comments CO2 (test code = CO2) 29 24-32 [place] 804351-08-09 05:10:00 Test Item Value Reference Range Interpretation Comments Calcium Lvl (test code = Calcium Lvl) 7.6 8.5-10.5 [facility]2021-08-09 05:10:00 Test Item Value Reference Range Interpretation Comments AGAP (test code = AGAP) 12.1 10.0-20.0 [place] 804351-08-09 05:10:00 Test Item Value Reference Range Interpretation Comments eGFR (test code = eGFR) 10 [place] 804351-08-09 05:10:00 Test Item Value Reference Range Interpretation Comments Magnesium Lvl (test code = Magnesium 2.3 1.8-2.4 Lvl) [place] 804351-08-09 05:10:00 Test Item Value Reference Range Interpretation Comments Phosphorus (test code = Phosphorus) 5.0 2.5-4.5 [place] 749491-08-09 05:10:00 Test Item Value Reference Range Interpretation Comments WBC (test code = WBC) 2.7 3.7-10.4 [place] 749491-08-09 05:10:00 Test Item Value Reference Range Interpretation Comments RBC (test code = RBC) 2.80 4.20-5.40 [facility] CampusOzjkzmeGZUHVUBCKX3176-66-07 05:10:00 Test Item Value Reference Range Interpretation Comments Hgb (test code = Hgb) 8.5 12.0-16.0 [facility] CampusPkckcsvZUAFXACBZU2151-64-47 05:10:00 Test Item Value Reference Range Interpretation Comments Hct (test code = Hct) 25.7 36.0-48.0 [facility] CampusJylsnbbOLZMJKVHSL7347-55-36 05:10:00 Test Item Value Reference Range Interpretation Comments MCV (test code = MCV) 91.7 80.0-98.0 [facility] CampusVulngscDVVXQWOJEE9790-57-35 05:10:00 Test Item Value Reference Range Interpretation Comments MCH (test code = MCH) 30.4 pg 27.0-31.0 [facility] CampusRilqunoBCKEZLYYTF7011-97-74 05:10:00 Test Item Value Reference Range Interpretation Comments MCHC (test code = MCHC) 33.1 32.0-36.0 [facility] CampusHlbfltbXDMOFBNEKN8288-59-44 05:10:00 Test Item Value Reference Range Interpretation Comments RDW (test code = RDW) 19.2 11.5-14.5 [facility] CampusXdrvmudQFMHWHIFRZ2754-81-73 05:10:00 Test Item Value Reference Range Interpretation Comments Platelet (test code = Platelet) 72 133-450 [facility] CampusCohmwoyPDJEJYOWOC5916-31-18 05:10:00 Test Item Value Reference Range Interpretation Comments MPV (test code = MPV) 9.9 7.4-10.4 [facility] CampusUnrhhkuWUCDZERDZG3651-67-91 05:10:00 Test Item Value Reference Range Interpretation Comments Segs (test code = Segs) 72.6 45.0-75.0 [facility] CampusGblptsbLCGEAEXEIT8110-36-83 05:10:00 Test Item Value Reference Range Interpretation Comments Lymphocytes (test code = Lymphocytes) 15.9 20.0-40.0 [facility] CampusOciokuvJMZPIJCUDZ5602-87-64 05:10:00 Test Item Value Reference Range Interpretation Comments Monocytes (test code = Monocytes) 7.3 2.0-12.0 [facility] CampusXukqenvVQMSVDNJDY0061-23-68 05:10:00 Test Item Value Reference Range Interpretation Comments Eosinophils (test code = 3.4 See_Comment [A utomated message] The Eosinophils) system which ge nerated this result tra nsmitted reference range : <=4.0. The reference r leo was not used to int erpret this result as normal/abnormal . [facility] CampusYiqeylfORAICLJGAP6034-35-85 05:10:00 Test Item Value Reference Range Interpretation Comments Basophils (test code = 0.8 See_Comment [Aut omated message] The Basophils) system which ge nerated this result tra nsmitted reference range : <=1.0. The reference r leo was not used to int erpret this result as normal/abnormal . [facility] CampusGgmdjtuMZESQWSTOY0744-39-41 05:10:00 Test Item Value Reference Range Interpretation Comments Neutrophils # (test code = Neutrophils 1.9 1.5-8.1 #) [facility] CampusWgxekldCGZBKDXQKT7834-56-61 05:10:00 Test Item Value Reference Range Interpretation Comments Lymphocytes # (test code = Lymphocytes 0.4 1.0-5.5 #) [facility] CampusXtqspkeAXYRDXKZKT2250-95-34 05:10:00 Test Item Value Reference Range Interpretation Comments Monocytes # (test code 0.2 See_Comment [Aut omated message] The = Monocytes #) system which generated this result tra nsmitted reference range : <=0.8. The reference r leo was not used to int erpret this result as normal/abnormal . [facility] CampusGtnuvabTDSNVAMGVV0566-46-39 05:10:00 Test Item Value Reference Range Interpretation Comments Eosinophils # (test code 0.1 See_Comment [A utomated message] The = Eosinophils #) system whic h generated this result tra nsmitted reference range : <=0.5. The reference r leo was not used to int erpret this result as normal/abnormal . [facility] HospitalATHYROID FBVEVDH0642-76-91 05:10:00 Test Item Value Reference Range Interpretation Comments Ca Ion WB (test code = Ca Ion WB) 1.10 1.05-1.25 [facility]RO[facility] MHSJCQH9659-66-27 05:10:00 Test Item Value Reference Range Interpretation Comments Ca Norm WB (test code = Ca Norm WB) 1.06 1.05-1.25 [facility]CHE[facility] KRJZI8476-76-46 05:10:00 Test Item Value Reference Range Interpretation Comments Glucose Lvl (test code = Glucose Lvl) 69 70-99 [place] 804351-08-09 05:10:00 Test Item Value Reference Range Interpretation Comments BUN (test code = BUN) 29 7-22 [place] 804351-08-09 05:10:00 Test Item Value Reference Range Interpretation Comments Creatinine Lvl (test code = Creatinine 5.14 0.50-1.40 Lvl) [place] 804351-08-09 05:10:00 Test Item Value Reference Range Interpretation Comments Sodium Lvl (test code = Sodium Lvl) 134 135-145 [place] 804351-08-09 05:10:00 Test Item Value Reference Range Interpretation Comments Potassium Lvl (test code = Potassium 5.1 3.5-5.1 Lvl) [place] 804351-08-09 05:10:00 Test Item Value Reference Range Interpretation Comments Chloride Lvl (test code = Chloride Lvl) 98 95-109 [place] 804351-08-09 05:10:00 Test Item Value Reference Range Interpretation Comments CO2 (test code = CO2) 29 24-32 [place] 804351-08-09 05:10:00 Test Item Value Reference Range Interpretation Comments Calcium Lvl (test code = Calcium Lvl) 7.6 8.5-10.5 [facility]2021-08-09 05:10:00 Test Item Value Reference Range Interpretation Comments AGAP (test code = AGAP) 12.1 10.0-20.0 [place] 804351-08-09 05:10:00 Test Item Value Reference Range Interpretation Comments eGFR (test code = eGFR) 10 [place] 804351-08-09 05:10:00 Test Item Value Reference Range Interpretation Comments Magnesium Lvl (test code = Magnesium 2.3 1.8-2.4 Lvl) [place] 804351-08-09 05:10:00 Test Item Value Reference Range Interpretation Comments Phosphorus (test code = Phosphorus) 5.0 2.5-4.5 [place] 749491-08-09 05:10:00 Test Item Value Reference Range Interpretation Comments WBC (test code = WBC) 2.7 3.7-10.4 [place] 749491-08-09 05:10:00 Test Item Value Reference Range Interpretation Comments RBC (test code = RBC) 2.80 4.20-5.40 [facility] CampusEbylvgbRAPUKQJQCX7870-76-80 05:10:00 Test Item Value Reference Range Interpretation Comments Hgb (test code = Hgb) 8.5 12.0-16.0 [facility] CampusKpfhpvqDSGIDQXCOS3738-07-08 05:10:00 Test Item Value Reference Range Interpretation Comments Hct (test code = Hct) 25.7 36.0-48.0 [facility] CampusNarityrHKLGSPVPWE8889-07-51 05:10:00 Test Item Value Reference Range Interpretation Comments MCV (test code = MCV) 91.7 80.0-98.0 [facility] CampusPstjgnzSZGQDBLPZD1515-97-87 05:10:00 Test Item Value Reference Range Interpretation Comments MCH (test code = MCH) 30.4 pg 27.0-31.0 [facility] CampusJuchpjmPZOVNUZJCI8841-58-17 05:10:00 Test Item Value Reference Range Interpretation Comments MCHC (test code = MCHC) 33.1 32.0-36.0 [facility] CampusYhapftcOMIPYFTJMN8997-96-76 05:10:00 Test Item Value Reference Range Interpretation Comments RDW (test code = RDW) 19.2 11.5-14.5 [facility] CampusJmcnjyrQJEGCEUXXN0765-46-52 05:10:00 Test Item Value Reference Range Interpretation Comments Platelet (test code = Platelet) 72 133-450 [facility] CampusYfkzuzaLCGUKZYTMK1556-13-25 05:10:00 Test Item Value Reference Range Interpretation Comments MPV (test code = MPV) 9.9 7.4-10.4 [facility] CampusJohrrdgZJFMNUUOTU8093-29-94 05:10:00 Test Item Value Reference Range Interpretation Comments Segs (test code = Segs) 72.6 45.0-75.0 [facility] CampusBdjggvjDJXXOTODJM7121-46-18 05:10:00 Test Item Value Reference Range Interpretation Comments Lymphocytes (test code = Lymphocytes) 15.9 20.0-40.0 [facility] CampusIphgckfLBJHYCJPGV1632-52-29 05:10:00 Test Item Value Reference Range Interpretation Comments Monocytes (test code = Monocytes) 7.3 2.0-12.0 [facility] CampusNuqdngjYRHWXHKNBN7332-80-05 05:10:00 Test Item Value Reference Range Interpretation Comments Eosinophils (test code = 3.4 See_Comment [A utomated message] The Eosinophils) system which ge nerated this result tra nsmitted reference range : <=4.0. The reference r leo was not used to int erpret this result as normal/abnormal . [facility] CampusTrvrrzqHEUPXVRTUM2903-79-65 05:10:00 Test Item Value Reference Range Interpretation Comments Basophils (test code = 0.8 See_Comment [Aut omated message] The Basophils) system which ge nerated this result tra nsmitted reference range : <=1.0. The reference r leo was not used to int erpret this result as normal/abnormal . [facility] CampusWtniianZJZDMKFLUG7058-41-65 05:10:00 Test Item Value Reference Range Interpretation Comments Neutrophils # (test code = Neutrophils 1.9 1.5-8.1 #) [facility] CampusPztlqukPWJPIUYCDF9640-17-41 05:10:00 Test Item Value Reference Range Interpretation Comments Lymphocytes # (test code = Lymphocytes 0.4 1.0-5.5 #) [facility] CampusWpzefreRCSHZUVSIM5767-73-45 05:10:00 Test Item Value Reference Range Interpretation Comments Monocytes # (test code 0.2 See_Comment [Aut omated message] The = Monocytes #) system which generated this result tra nsmitted reference range : <=0.8. The reference r leo was not used to int erpret this result as normal/abnormal . [facility] CampusAhugrgeWCEJQJHDOY7815-87-06 05:10:00 Test Item Value Reference Range Interpretation Comments Eosinophils # (test code 0.1 See_Comment [A utomated message] The = Eosinophils #) system whic h generated this result tra nsmitted reference range : <=0.5. The reference r leo was not used to int erpret this result as normal/abnormal . [facility] HospitalATHYROID FCWITTF7011-85-12 05:10:00 Test Item Value Reference Range Interpretation Comments Ca Ion WB (test code = Ca Ion WB) 1.10 1.05-1.25 [facility]RO[facility] EBUBGTF3000-93-69 05:10:00 Test Item Value Reference Range Interpretation Comments Ca Norm WB (test code = Ca Norm WB) 1.06 1.05-1.25 [facility]CHE[facility] FHLIW9730-47-61 05:10:00 Test Item Value Reference Range Interpretation Comments Glucose Lvl (test code = Glucose Lvl) 69 70-99 [place] 804351-08-09 05:10:00 Test Item Value Reference Range Interpretation Comments BUN (test code = BUN) 29 7-22 [place] 804351-08-09 05:10:00 Test Item Value Reference Range Interpretation Comments Creatinine Lvl (test code = Creatinine 5.14 0.50-1.40 Lvl) [place] 804351-08-09 05:10:00 Test Item Value Reference Range Interpretation Comments Sodium Lvl (test code = Sodium Lvl) 134 135-145 [place] 804351-08-09 05:10:00 Test Item Value Reference Range Interpretation Comments Potassium Lvl (test code = Potassium 5.1 3.5-5.1 Lvl) [place] 804351-08-09 05:10:00 Test Item Value Reference Range Interpretation Comments Chloride Lvl (test code = Chloride Lvl) 98 95-109 [place] 804351-08-09 05:10:00 Test Item Value Reference Range Interpretation Comments CO2 (test code = CO2) 29 24-32 [place] 804351-08-09 05:10:00 Test Item Value Reference Range Interpretation Comments Calcium Lvl (test code = Calcium Lvl) 7.6 8.5-10.5 [facility]2021-08-09 05:10:00 Test Item Value Reference Range Interpretation Comments AGAP (test code = AGAP) 12.1 10.0-20.0 [place] 804351-08-09 05:10:00 Test Item Value Reference Range Interpretation Comments eGFR (test code = eGFR) 10 [place] 804351-08-09 05:10:00 Test Item Value Reference Range Interpretation Comments Magnesium Lvl (test code = Magnesium 2.3 1.8-2.4 Lvl) [place] 804351-08-09 05:10:00 Test Item Value Reference Range Interpretation Comments Phosphorus (test code = Phosphorus) 5.0 2.5-4.5 [place] 749491-08-09 05:10:00 Test Item Value Reference Range Interpretation Comments WBC (test code = WBC) 2.7 3.7-10.4 [place] 749491-08-09 05:10:00 Test Item Value Reference Range Interpretation Comments RBC (test code = RBC) 2.80 4.20-5.40 [facility]DzhvgvmGSWICBAOVR7861-97-10 05:10:00 Test Item Value Reference Range Interpretation Comments Hgb (test code = Hgb) 8.5 12.0-16.0 [facility] CampusOmjiptrRKIEPUVDOA2114-34-88 05:10:00 Test Item Value Reference Range Interpretation Comments Hct (test code = Hct) 25.7 36.0-48.0 [facility] CampusUvsyexpHRYKWRABWA3510-83-80 05:10:00 Test Item Value Reference Range Interpretation Comments MCV (test code = MCV) 91.7 80.0-98.0 [facility] CampusYuxyqjwUUHHTXWKYE8437-87-66 05:10:00 Test Item Value Reference Range Interpretation Comments MCH (test code = MCH) 30.4 pg 27.0-31.0 [facility] CampusLwvnmulMWHKWOXIVB7252-33-53 05:10:00 Test Item Value Reference Range Interpretation Comments MCHC (test code = MCHC) 33.1 32.0-36.0 [facility] CampusUeksmkpXQVMHXYNRL8749-63-51 05:10:00 Test Item Value Reference Range Interpretation Comments RDW (test code = RDW) 19.2 11.5-14.5 [facility] CampusZxbdwyhSNGAQOLCNP3094-89-57 05:10:00 Test Item Value Reference Range Interpretation Comments Platelet (test code = Platelet) 72 133-450 [facility] CampusGlsdqymNQNUAWMRQK4368-86-62 05:10:00 Test Item Value Reference Range Interpretation Comments MPV (test code = MPV) 9.9 7.4-10.4 [facility] CampusSlpboigGKRBYRHBQL5556-01-83 05:10:00 Test Item Value Reference Range Interpretation Comments Segs (test code = Segs) 72.6 45.0-75.0 [facility] CampusLaywtgqDIECESQOQC8131-08-75 05:10:00 Test Item Value Reference Range Interpretation Comments Lymphocytes (test code = Lymphocytes) 15.9 20.0-40.0 [facility] CampusMqnyimlWALPMIGUYT8937-51-01 05:10:00 Test Item Value Reference Range Interpretation Comments Monocytes (test code = Monocytes) 7.3 2.0-12.0 [facility] CampusSqlqknnRVSEDKVYZF0573-42-52 05:10:00 Test Item Value Reference Range Interpretation Comments Eosinophils (test code = 3.4 See_Comment [A utomated message] The Eosinophils) system which ge nerated this result tra nsmitted reference range : <=4.0. The reference r leo was not used to int erpret this result as normal/abnormal . [facility] CampusDhsljbxRPTTXEHVBD9412-06-41 05:10:00 Test Item Value Reference Range Interpretation Comments Basophils (test code = 0.8 See_Comment [Aut omated message] The Basophils) system which ge nerated this result tra nsmitted reference range : <=1.0. The reference r leo was not used to int erpret this result as normal/abnormal . [facility] CampusPgxxoxzOGGCAECSHX1387-95-88 05:10:00 Test Item Value Reference Range Interpretation Comments Neutrophils # (test code = Neutrophils 1.9 1.5-8.1 #) [facility] CampusHucqjniZGXEKWHICJ2911-95-28 05:10:00 Test Item Value Reference Range Interpretation Comments Lymphocytes # (test code = Lymphocytes 0.4 1.0-5.5 #) [facility] CampusIageoykHUJMNGOJLC5027-85-75 05:10:00 Test Item Value Reference Range Interpretation Comments Monocytes # (test code 0.2 See_Comment [Aut omated message] The = Monocytes #) system which generated this result tra nsmitted reference range : <=0.8. The reference r leo was not used to int erpret this result as normal/abnormal . [facility] CampusRvojkadINKETVIHFY9809-70-44 05:10:00 Test Item Value Reference Range Interpretation Comments Eosinophils # (test code 0.1 See_Comment [A utomated message] The = Eosinophils #) system whic h generated this result tra nsmitted reference range : <=0.5. The reference r leo was not used to int erpret this result as normal/abnormal . [facility]ATH[facility] AJMAMOR2740-02-83 05:10:00 Test Item Value Reference Range Interpretation Comments Ca Ion WB (test code = Ca Ion WB) 1.10 1.05-1.25 [facility] HospitalATHY[facility]ID URNDYVP4942-38-20 05:10:00 Test Item Value Reference Range Interpretation Comments Ca Norm WB (test code = Ca Norm WB) 1.06 1.05-1.25 [facility] YVLJQGJULP5070-17-27 18:36:00 Test Item Value Reference Range Interpretation Comments C difficile DNA (test Negative (01/26/21 1:36 code = C difficile DNA) PM) [facility] NUDTFJFRSM0411-75-45 18:36:00 Test Item Value Reference Range Interpretation Comments C difficile DNA (test Negative (01/26/21 1:36 code = C difficile DNA) PM) [facility] JYXYIBHZJJ9215-31-73 18:36:00 Test Item Value Reference Range Interpretation Comments C difficile DNA (test Negative (01/26/21 1:36 code = C difficile DNA) PM) [facility] YONEALMFIV9049-15-73 18:36:00 Test Item Value Reference Range Interpretation Comments C difficile DNA (test Negative (01/26/21 1:36 code = C difficile DNA) PM) [facility] [id number] 18:36:00 Test Item Value Reference Range Interpretation Comments C difficile DNA (test Negative (01/26/21 1:36 code = C difficile DNA) PM) [facility] HospitalATHY[facility]ID [id number] 07:33:00 Test Item Value Reference Range Interpretation Comments Ca Ion WB (test code = Ca Ion WB) 1.12 1.05-1.25 [facility] [id number] 07:33:00 Test Item Value Reference Range Interpretation Comments Ca Norm WB (test code = Ca Norm WB) 1.07 1.05-1.25 [facility]annPARATHYROID NUFZYZJ4850-80-60 07:33:00 Test Item Value Reference Range Interpretation Comments Ca Ion WB (test code = Ca Ion WB) 1.12 1.05-1.25 [facility]annPAR[facility] ZCZZQHU4565-42-50 07:33:00 Test Item Value Reference Range Interpretation Comments Ca Norm WB (test code = Ca Norm WB) 1.07 1.05-1.25 [facility]annPARATH[facility]ID [id number] 07:33:00 Test Item Value Reference Range Interpretation Comments Ca Ion WB (test code = Ca Ion WB) 1.12 1.05-1.25 [facility]annPARATH[facility]ID QCYDEYZ7622-41-20 07:33:00 Test Item Value Reference Range Interpretation Comments Ca Norm WB (test code = Ca Norm WB) 1.07 1.05-1.25 [place] 273611-08-08 07:33:00 Test Item Value Reference Range Interpretation Comments Ca Ion WB (test code = Ca Ion WB) 1.12 1.05-1.25 [place] 273611-08-08 07:33:00 Test Item Value Reference Range Interpretation Comments Ca Norm WB (test code = Ca Norm WB) 1.07 1.05-1.25 [place] 273611-08-08 07:33:00 Test Item Value Reference Range Interpretation Comments Ca Ion WB (test code = Ca Ion WB) 1.12 1.05-1.25 [place] 273611-08-08 07:33:00 Test Item Value Reference Range Interpretation Comments Ca Norm WB (test code = Ca Norm WB) 1.07 1.05-1.25 [place] 804351-08-08 07:30:00 Test Item Value Reference Range Interpretation Comments Glucose Lvl (test code = Glucose Lvl) 65 70-99 [place] 804351-08-08 07:30:00 Test Item Value Reference Range Interpretation Comments BUN (test code = BUN) 21 7-22 [place] 804351-08-08 07:30:00 Test Item Value Reference Range Interpretation Comments Creatinine Lvl (test code = Creatinine 4.18 0.50-1.40 Lvl) [place] 804351-08-08 07:30:00 Test Item Value Reference Range Interpretation Comments Sodium Lvl (test code = Sodium Lvl) 136 135-145 [place] 804351-08-08 07:30:00 Test Item Value Reference Range Interpretation Comments Potassium Lvl (test code = Potassium 4.5 3.5-5.1 Lvl) [place] 804351-08-08 07:30:00 Test Item Value Reference Range Interpretation Comments Chloride Lvl (test code = Chloride Lvl) 99 95-109 [place] 804351-08-08 07:30:00 Test Item Value Reference Range Interpretation Comments CO2 (test code = CO2) 31 24-32 [place] 804351-08-08 07:30:00 Test Item Value Reference Range Interpretation Comments AGAP (test code = AGAP) 10.5 10.0-20.0 [place] 804351-08-08 07:30:00 Test Item Value Reference Range Interpretation Comments Calcium Lvl (test code = Calcium Lvl) 7.9 8.5-10.5 [place] 804351-08-08 07:30:00 Test Item Value Reference Range Interpretation Comments eGFR (test code = eGFR) 13 [place] [address]-08-08 07:30:00 Test Item Value Reference Range Interpretation Comments Magnesium Lvl (test code = Magnesium 2.2 1.8-2.4 Lvl) [place] 804351-08-08 07:30:00 Test Item Value Reference Range Interpretation Comments Phosphorus (test code = Phosphorus) 4.4 2.5-4.5 [place] 749491-08-08 07:30:00 Test Item Value Reference Range Interpretation Comments WBC (test code = WBC) 2.3 3.7-10.4 [place] 749491-08-08 07:30:00 Test Item Value Reference Range Interpretation Comments RBC (test code = RBC) 2.88 4.20-5.40 [place] 749491-08-08 07:30:00 Test Item Value Reference Range Interpretation Comments Hgb (test code = Hgb) 8.6 12.0-16.0 [place] 749491-08-08 07:30:00 Test Item Value Reference Range Interpretation Comments Hct (test code = Hct) 26.6 36.0-48.0 [place] 749491-08-08 07:30:00 Test Item Value Reference Range Interpretation Comments MCV (test code = MCV) 92.2 80.0-98.0 [place] [address]-08-08 07:30:00 Test Item Value Reference Range Interpretation Comments MCH (test code = MCH) 29.8 pg 27.0-31.0 [place] 749491-08-08 07:30:00 Test Item Value Reference Range Interpretation Comments MCHC (test code = MCHC) 32.4 32.0-36.0 [place] 749491-08-08 07:30:00 Test Item Value Reference Range Interpretation Comments RDW (test code = RDW) 19.7 11.5-14.5 [place] 749491-08-08 07:30:00 Test Item Value Reference Range Interpretation Comments Platelet (test code = Platelet) 83 133-450 [facility] CampusNfyftaoAWUXPHEAOH4593-71-77 07:30:00 Test Item Value Reference Range Interpretation Comments MPV (test code = MPV) 10.2 7.4-10.4 [facility] CampusWfnehjxFPCXKBEOPR8636-75-54 07:30:00 Test Item Value Reference Range Interpretation Comments Segs (test code = Segs) 64.0 45.0-75.0 [facility] CampusItazgeiQDFLSORYYU1489-45-49 07:30:00 Test Item Value Reference Range Interpretation Comments Lymphocytes (test code = Lymphocytes) 24.1 20.0-40.0 [facility] CampusXzrujzpYGQPZKHLYY7060-80-04 07:30:00 Test Item Value Reference Range Interpretation Comments Monocytes (test code = Monocytes) 7.0 2.0-12.0 [facility] CampusXxuvobqJRWGOZSMYC9053-01-64 07:30:00 Test Item Value Reference Range Interpretation Comments Eosinophils (test code = 3.7 See_Comment [A utomated message] The Eosinophils) system which ge nerated this result tra nsmitted reference range : <=4.0. The reference r leo was not used to int erpret this result as normal/abnormal . [facility] CampusOfewbgdSDODYFUDWW7887-55-34 07:30:00 Test Item Value Reference Range Interpretation Comments Basophils (test code = 1.2 See_Comment [Aut omated message] The Basophils) system which ge nerated this result tra nsmitted reference range : <=1.0. The reference r leo was not used to int erpret this result as normal/abnormal . [facility] CampusUkccxymWJDWKTOWVA3699-91-29 07:30:00 Test Item Value Reference Range Interpretation Comments Neutrophils # (test code = Neutrophils 1.5 1.5-8.1 #) [facility] CampusMtkvfxeMJKIRCNRFJ2011-57-98 07:30:00 Test Item Value Reference Range Interpretation Comments Lymphocytes # (test code = Lymphocytes 0.6 1.0-5.5 #) [facility] CampusFkvkbtzAEHHLXPQTU8792-88-12 07:30:00 Test Item Value Reference Range Interpretation Comments Monocytes # (test code 0.2 See_Comment [Aut omated message] The = Monocytes #) system which generated this result tra nsmitted reference range : <=0.8. The reference r leo was not used to int erpret this result as normal/abnormal . [place] 749491-08-08 07:30:00 Test Item Value Reference Range Interpretation Comments Eosinophils # (test code 0.1 See_Comment [A utomated message] The = Eosinophils #) system [employer] h generated this result tra nsmitted reference range : <=0.5. The reference r leo was not used to int erpret this result as normal/abnormal . [place] 804351-08-08 07:30:00 Test Item Value Reference Range Interpretation Comments Glucose Lvl (test code = Glucose Lvl) 65 70-99 [place] 804351-08-08 07:30:00 Test Item Value Reference Range Interpretation Comments BUN (test code = BUN) 21 7-22 [place] 804351-08-08 07:30:00 Test Item Value Reference Range Interpretation Comments Creatinine Lvl (test code = Creatinine 4.18 0.50-1.40 Lvl) [place] 804351-08-08 07:30:00 Test Item Value Reference Range Interpretation Comments Sodium Lvl (test code = Sodium Lvl) 136 135-145 [place] 804351-08-08 07:30:00 Test Item Value Reference Range Interpretation Comments Potassium Lvl (test code = Potassium 4.5 3.5-5.1 Lvl) [place] 804351-08-08 07:30:00 Test Item Value Reference Range Interpretation Comments Chloride Lvl (test code = Chloride Lvl) 99 95-109 [place] 804351-08-08 07:30:00 Test Item Value Reference Range Interpretation Comments CO2 (test code = CO2) 31 24-32 [place] 804351-08-08 07:30:00 Test Item Value Reference Range Interpretation Comments AGAP (test code = AGAP) 10.5 10.0-20.0 [place] 804351-08-08 07:30:00 Test Item Value Reference Range Interpretation Comments Calcium Lvl (test code = Calcium Lvl) 7.9 8.5-10.5 [place] 804351-08-08 07:30:00 Test Item Value Reference Range Interpretation Comments eGFR (test code = eGFR) 13 [place] 804351-08-08 07:30:00 Test Item Value Reference Range Interpretation Comments Magnesium Lvl (test code = Magnesium 2.2 1.8-2.4 Lvl) [facility]2021-08-08 07:30:00 Test Item Value Reference Range Interpretation Comments Phosphorus (test code = Phosphorus) 4.4 2.5-4.5 [facility] CampusNfmknffPSRPNMUMAT7036-15-52 07:30:00 Test Item Value Reference Range Interpretation Comments WBC (test code = WBC) 2.3 3.7-10.4 [place] 749491-08-08 07:30:00 Test Item Value Reference Range Interpretation Comments RBC (test code = RBC) 2.88 4.20-5.40 [place] 749491-08-08 07:30:00 Test Item Value Reference Range Interpretation Comments Hgb (test code = Hgb) 8.6 12.0-16.0 [place] 749491-08-08 07:30:00 Test Item Value Reference Range Interpretation Comments Hct (test code = Hct) 26.6 36.0-48.0 [place] 749491-08-08 07:30:00 Test Item Value Reference Range Interpretation Comments MCV (test code = MCV) 92.2 80.0-98.0 [facility] CampusHgwktibNFEMGZPJWH0437-49-77 07:30:00 Test Item Value Reference Range Interpretation Comments MCH (test code = MCH) 29.8 pg 27.0-31.0 [facility] CampusFgglcuqQFWDTZFRFX8065-52-18 07:30:00 Test Item Value Reference Range Interpretation Comments MCHC (test code = MCHC) 32.4 32.0-36.0 [facility] CampusDhvolplPSJBSLFKOJ2998-96-98 07:30:00 Test Item Value Reference Range Interpretation Comments RDW (test code = RDW) 19.7 11.5-14.5 [place] 749491-08-08 07:30:00 Test Item Value Reference Range Interpretation Comments Platelet (test code = Platelet) 83 133-450 [facility] CampusLbcwlinYBAHDIFMIA5414-31-99 07:30:00 Test Item Value Reference Range Interpretation Comments MPV (test code = MPV) 10.2 7.4-10.4 [place] 749491-08-08 07:30:00 Test Item Value Reference Range Interpretation Comments Segs (test code = Segs) 64.0 45.0-75.0 [place] 749491-08-08 07:30:00 Test Item Value Reference Range Interpretation Comments Lymphocytes (test code = Lymphocytes) 24.1 20.0-40.0 [place] 749491-08-08 07:30:00 Test Item Value Reference Range Interpretation Comments Monocytes (test code = Monocytes) 7.0 2.0-12.0 [facility] CampusRufpljxAXHRSNFBEK5838-36-30 07:30:00 Test Item Value Reference Range Interpretation Comments Eosinophils (test code = 3.7 See_Comment [A utomated message] The Eosinophils) system which ge nerated this result tra nsmitted reference range : <=4.0. The reference r leo was not used to int erpret this result as normal/abnormal . [facility] CampusNojssogKDLRCLEAXJ6009-31-88 07:30:00 Test Item Value Reference Range Interpretation Comments Basophils (test code = 1.2 See_Comment [Aut omated message] The Basophils) system which ge nerated this result tra nsmitted reference range : <=1.0. The reference r leo was not used to int erpret this result as normal/abnormal . [facility] CampusVbmwkikFLJMALHDYO9658-75-79 07:30:00 Test Item Value Reference Range Interpretation Comments Neutrophils # (test code = Neutrophils 1.5 1.5-8.1 #) [facility] CampusMtzbpreJUDLYOLJOL1534-61-29 07:30:00 Test Item Value Reference Range Interpretation Comments Lymphocytes # (test code = Lymphocytes 0.6 1.0-5.5 #) [facility] CampusRbvmcryAQPKESZOBN4040-59-15 07:30:00 Test Item Value Reference Range Interpretation Comments Monocytes # (test code 0.2 See_Comment [Aut omated message] The = Monocytes #) system which generated this result tra nsmitted reference range : <=0.8. The reference r leo was not used to int erpret this result as normal/abnormal . [facility] CampusQkozakrSRKYMFHPDJ5534-97-81 07:30:00 Test Item Value Reference Range Interpretation Comments Eosinophils # (test code 0.1 See_Comment [A utomated message] The = Eosinophils #) system whic h generated this result tra nsmitted reference range : <=0.5. The reference r leo was not used to int erpret this result as normal/abnormal . [place] 804351-08-08 07:30:00 Test Item Value Reference Range Interpretation Comments Glucose Lvl (test code = Glucose Lvl) 65 70-99 [place] 804351-08-08 07:30:00 Test Item Value Reference Range Interpretation Comments BUN (test code = BUN) 21 7-22 [place] 804351-08-08 07:30:00 Test Item Value Reference Range Interpretation Comments Creatinine Lvl (test code = Creatinine 4.18 0.50-1.40 Lvl) [place] 804351-08-08 07:30:00 Test Item Value Reference Range Interpretation Comments Sodium Lvl (test code = Sodium Lvl) 136 135-145 [place] 804351-08-08 07:30:00 Test Item Value Reference Range Interpretation Comments Potassium Lvl (test code = Potassium 4.5 3.5-5.1 Lvl) [place] 804351-08-08 07:30:00 Test Item Value Reference Range Interpretation Comments Chloride Lvl (test code = Chloride Lvl) 99 95-109 [place] 804351-08-08 07:30:00 Test Item Value Reference Range Interpretation Comments CO2 (test code = CO2) 31 24-32 [place] 804351-08-08 07:30:00 Test Item Value Reference Range Interpretation Comments AGAP (test code = AGAP) 10.5 10.0-20.0 [place] 804351-08-08 07:30:00 Test Item Value Reference Range Interpretation Comments Calcium Lvl (test code = Calcium Lvl) 7.9 8.5-10.5 [place] 804351-08-08 07:30:00 Test Item Value Reference Range Interpretation Comments eGFR (test code = eGFR) 13 [place] 804351-08-08 07:30:00 Test Item Value Reference Range Interpretation Comments Magnesium Lvl (test code = Magnesium 2.2 1.8-2.4 Lvl) [place] 804351-08-08 07:30:00 Test Item Value Reference Range Interpretation Comments Phosphorus (test code = Phosphorus) 4.4 2.5-4.[address] [facility]MlsxvfzNCRDHMXWUM5415-41-77 07:30:00 Test Item Value Reference Range Interpretation Comments WBC (test code = WBC) 2.3 3.7-10.4 [facility] CampusXjvxnllZERVJYFDLO9703-28-02 07:30:00 Test Item Value Reference Range Interpretation Comments RBC (test code = RBC) 2.88 4.20-5.40 [facility] CampusAhwqzttOBZLJLQYHI4106-15-17 07:30:00 Test Item Value Reference Range Interpretation Comments Hgb (test code = Hgb) 8.6 12.0-16.0 [facility] CampusGvelrfaOXTPDERCOK0912-15-90 07:30:00 Test Item Value Reference Range Interpretation Comments Hct (test code = Hct) 26.6 36.0-48.0 [facility] CampusFuxuwouGQKHGDDNZC4887-65-19 07:30:00 Test Item Value Reference Range Interpretation Comments MCV (test code = MCV) 92.2 80.0-98.0 [facility] CampusOztjhvbFAABVLDNXA4998-44-55 07:30:00 Test Item Value Reference Range Interpretation Comments MCH (test code = MCH) 29.8 pg 27.0-31.0 [facility] CampusPrfcrucTXAMBFMCGX3430-36-39 07:30:00 Test Item Value Reference Range Interpretation Comments MCHC (test code = MCHC) 32.4 32.0-36.0 [facility] CampusEckkibxJHWVDOOWLX1855-13-46 07:30:00 Test Item Value Reference Range Interpretation Comments RDW (test code = RDW) 19.7 11.5-14.5 [facility] CampusVxjjmgdXFIJURIEQH9850-01-25 07:30:00 Test Item Value Reference Range Interpretation Comments Platelet (test code = Platelet) 83 133-450 [facility] CampusOijidxgXPYJCRKZKT7109-42-06 07:30:00 Test Item Value Reference Range Interpretation Comments MPV (test code = MPV) 10.2 7.4-10.4 [facility] CampusNrqdiajIRYYDOHRQJ1001-49-87 07:30:00 Test Item Value Reference Range Interpretation Comments Segs (test code = Segs) 64.0 45.0-75.0 [facility] CampusJoncxnvPUPXOWGYCV6152-74-68 07:30:00 Test Item Value Reference Range Interpretation Comments Lymphocytes (test code = Lymphocytes) 24.1 20.0-40.0 [facility] CampusThcypvbIHFINOQRRV8991-72-78 07:30:00 Test Item Value Reference Range Interpretation Comments Monocytes (test code = Monocytes) 7.0 2.0-12.0 [facility] CampusOpxguyfBWWOJBURQR5649-29-95 07:30:00 Test Item Value Reference Range Interpretation Comments Eosinophils (test code = 3.7 See_Comment [A utomated message] The Eosinophils) system which ge nerated this result tra nsmitted reference range : <=4.0. The reference r leo was not used to int erpret this result as normal/abnormal . [place] 749491-08-08 07:30:00 Test Item Value Reference Range Interpretation Comments Basophils (test code = 1.2 See_Comment [Aut omated message] The Basophils) system which ge nerated this result tra nsmitted reference range : <=1.0. The reference r leo was not used to int erpret this result as normal/abnormal . [place] 749491-08-08 07:30:00 Test Item Value Reference Range Interpretation Comments Neutrophils # (test code = Neutrophils 1.5 1.5-8.1 #) [place] 749491-08-08 07:30:00 Test Item Value Reference Range Interpretation Comments Lymphocytes # (test code = Lymphocytes 0.6 1.0-5.5 #) [place] 749491-08-08 07:30:00 Test Item Value Reference Range Interpretation Comments Monocytes # (test code 0.2 See_Comment [Aut omated message] The = Monocytes #) system which generated this result tra nsmitted reference range : <=0.8. The reference r leo was not used to int erpret this result as normal/abnormal . [place] 749491-08-08 07:30:00 Test Item Value Reference Range Interpretation Comments Eosinophils # (test code 0.1 See_Comment [A utomated message] The = Eosinophils #) system whic h generated this result tra nsmitted reference range : <=0.5. The reference r leo was not used to int erpret this result as normal/abnormal . [place] 804351-08-08 07:30:00 Test Item Value Reference Range Interpretation Comments Glucose Lvl (test code = Glucose Lvl) 65 70-99 [place] 07[address]-08-08 07:30:00 Test Item Value Reference Range Interpretation Comments BUN (test code = BUN) 21 7-22 [place] 804351-08-08 07:30:00 Test Item Value Reference Range Interpretation Comments Creatinine Lvl (test code = Creatinine 4.18 0.50-1.40 Lvl) [place] 804351-08-08 07:30:00 Test Item Value Reference Range Interpretation Comments Sodium Lvl (test code = Sodium Lvl) 136 135-145 [place] 804351-08-08 07:30:00 Test Item Value Reference Range Interpretation Comments Potassium Lvl (test code = Potassium 4.5 3.5-5.1 Lvl) [place] 804351-08-08 07:30:00 Test Item Value Reference Range Interpretation Comments Chloride Lvl (test code = Chloride Lvl) 99 95-109 [place] 804351-08-08 07:30:00 Test Item Value Reference Range Interpretation Comments CO2 (test code = CO2) 31 24-32 [place] 804351-08-08 07:30:00 Test Item Value Reference Range Interpretation Comments AGAP (test code = AGAP) 10.5 10.0-20.0 [place] 804351-08-08 07:30:00 Test Item Value Reference Range Interpretation Comments Calcium Lvl (test code = Calcium Lvl) 7.9 8.5-10.5 [place] 804351-08-08 07:30:00 Test Item Value Reference Range Interpretation Comments eGFR (test code = eGFR) 13 [place] 804351-08-08 07:30:00 Test Item Value Reference Range Interpretation Comments Magnesium Lvl (test code = Magnesium 2.2 1.8-2.4 Lvl) [place] 804351-08-08 07:30:00 Test Item Value Reference Range Interpretation Comments Phosphorus (test code = Phosphorus) 4.4 2.5-4.5 [place] 749491-08-08 07:30:00 Test Item Value Reference Range Interpretation Comments WBC (test code = WBC) 2.3 3.7-10.4 [place] 749491-08-08 07:30:00 Test Item Value Reference Range Interpretation Comments RBC (test code = RBC) 2.88 4.20-5.40 [place] 749491-08-08 07:30:00 Test Item Value Reference Range Interpretation Comments Hgb (test code = Hgb) 8.6 12.0-16.0 [address]08-08 07:30:00 Test Item Value Reference Range Interpretation Comments Hct (test code = Hct) 26.6 36.0-48.0 [facility]MzdmxkmSEJANEVORX8153-12-36 07:30:00 Test Item Value Reference Range Interpretation Comments MCV (test code = MCV) 92.2 80.0-98.0 [facility] CampusRpjxmilVGCGUMODZU7216-90-65 07:30:00 Test Item Value Reference Range Interpretation Comments MCH (test code = MCH) 29.8 pg 27.0-31.0 [facility] CampusKabahgtXDNAODZEOX7124-26-42 07:30:00 Test Item Value Reference Range Interpretation Comments MCHC (test code = MCHC) 32.4 32.0-36.0 [facility] CampusOotlezjMSRDRCFLMK9048-15-68 07:30:00 Test Item Value Reference Range Interpretation Comments RDW (test code = RDW) 19.7 11.5-14.5 [facility] CampusBomaxlnJDHCSMZIAE7333-45-07 07:30:00 Test Item Value Reference Range Interpretation Comments Platelet (test code = Platelet) 83 133-450 [facility] CampusKnsxeqhTUFMTWPKRI6250-03-89 07:30:00 Test Item Value Reference Range Interpretation Comments MPV (test code = MPV) 10.2 7.4-10.4 [facility] CampusXwlxpteFRDSKDEUBM2601-30-14 07:30:00 Test Item Value Reference Range Interpretation Comments Segs (test code = Segs) 64.0 45.0-75.0 [facility] CampusTfgzmaxXFXQTYXIBG3575-84-88 07:30:00 Test Item Value Reference Range Interpretation Comments Lymphocytes (test code = Lymphocytes) 24.1 20.0-40.0 [facility] CampusTwfzvpgXNKERFBTNX7663-27-20 07:30:00 Test Item Value Reference Range Interpretation Comments Monocytes (test code = Monocytes) 7.0 2.0-12.0 [place] 749491-08-08 07:30:00 Test Item Value Reference Range Interpretation Comments Eosinophils (test code = 3.7 See_Comment [A utomated message] The Eosinophils) system which ge nerated this result tra nsmitted reference range : <=4.0. The reference r leo was not used to int erpret this result as normal/abnormal . [place] 749491-08-08 07:30:00 Test Item Value Reference Range Interpretation Comments Basophils (test code = 1.2 See_Comment [Aut omated message] The Basophils) system which ge nerated this result tra nsmitted reference range : <=1.0. The reference r leo was not used to int erpret this result as normal/abnormal . [place] 749491-08-08 07:30:00 Test Item Value Reference Range Interpretation Comments Neutrophils # (test code = Neutrophils 1.5 1.5-8.1 #) [place] 749491-08-08 07:30:00 Test Item Value Reference Range Interpretation Comments Lymphocytes # (test code = Lymphocytes 0.6 1.0-5.5 #) [place] 749491-08-08 07:30:00 Test Item Value Reference Range Interpretation Comments Monocytes # (test code 0.2 See_Comment [Aut omated message] The = Monocytes #) system which generated this result tra nsmitted reference range : <=0.8. The reference r leo was not used to int erpret this result as normal/abnormal . [place] 749491-08-08 07:30:00 Test Item Value Reference Range Interpretation Comments Eosinophils # (test code 0.1 See_Comment [A utomated message] The = Eosinophils #) system whic h generated this result tra nsmitted reference range : <=0.5. The reference r leo was not used to int erpret this result as normal/abnormal . [place] 804351-08-08 07:30:00 Test Item Value Reference Range Interpretation Comments Glucose Lvl (test code = Glucose Lvl) 65 70-99 [facility] OOQIH0704[facility] 07:30:00 Test Item Value Reference Range Interpretation Comments BUN (test code = BUN) 21 7-22 [facility] HUUUZ7608-12-02 07:30:00 Test Item Value Reference Range Interpretation Comments Creatinine Lvl (test code = Creatinine 4.18 0.50-1.40 Lvl) [place] 804351-08-08 07:30:00 Test Item Value Reference Range Interpretation Comments Sodium Lvl (test code = Sodium Lvl) 136 135-145 [facility] [id number] 07:30:00 Test Item Value Reference Range Interpretation Comments Potassium Lvl (test code = Potassium 4.5 3.5-5.1 Lvl) [place] 804351-08-08 07:30:00 Test Item Value Reference Range Interpretation Comments Chloride Lvl (test code = Chloride Lvl) 99 95-109 [place] 804351-08-08 07:30:00 Test Item Value Reference Range Interpretation Comments CO2 (test code = CO2) 31 24-32 [place] [address]-08-08 07:30:00 Test Item Value Reference Range Interpretation Comments AGAP (test code = AGAP) 10.5 10.0-20.0 [place] [address]-08-08 07:30:00 Test Item Value Reference Range Interpretation Comments Calcium Lvl (test code = Calcium Lvl) 7.9 8.5-10.5 [place] 804351-08-08 07:30:00 Test Item Value Reference Range Interpretation Comments eGFR (test code = eGFR) 13 [place] 804351-08-08 07:30:00 Test Item Value Reference Range Interpretation Comments Magnesium Lvl (test code = Magnesium 2.2 1.8-2.4 Lvl) [place] 804351-08-08 07:30:00 Test Item Value Reference Range Interpretation Comments Phosphorus (test code = Phosphorus) 4.4 2.5-4.5 [place] 749491-08-08 07:30:00 Test Item Value Reference Range Interpretation Comments WBC (test code = WBC) 2.3 3.7-10.4 [place] 749491-08-08 07:30:00 Test Item Value Reference Range Interpretation Comments RBC (test code = RBC) 2.88 4.20-5.40 [place] [address]-08-08 07:30:00 Test Item Value Reference Range Interpretation Comments Hgb (test code = Hgb) 8.6 12.0-16.0 [place] [address]-08-08 07:30:00 Test Item Value Reference Range Interpretation Comments Hct (test code = Hct) 26.6 36.0-48.0 [place] [address]-08-08 07:30:00 Test Item Value Reference Range Interpretation Comments MCV (test code = MCV) 92.2 80.0-98.0 [place] [address]-08-08 07:30:00 Test Item Value Reference Range Interpretation Comments MCH (test code = MCH) 29.8 pg 27.0-31.0 [facility] CampusGfujsisIIMFMEGCQA7545-93-27 07:30:00 Test Item Value Reference Range Interpretation Comments MCHC (test code = MCHC) 32.4 32.0-36.0 [place] 749491-08-08 07:30:00 Test Item Value Reference Range Interpretation Comments RDW (test code = RDW) 19.7 11.5-14.5 [facility] CampusVfmhroxJXWGFOEBZU0577-45-56 07:30:00 Test Item Value Reference Range Interpretation Comments Platelet (test code = Platelet) 83 133-450 [facility] CampusQmtykajCLMMZFYEXP0577-06-15 07:30:00 Test Item Value Reference Range Interpretation Comments MPV (test code = MPV) 10.2 7.4-10.4 [place] 749491-08-08 07:30:00 Test Item Value Reference Range Interpretation Comments Segs (test code = Segs) 64.0 45.0-75.0 [facility] CampusJgogvgeBPFBHYJLCZ4838-96-23 07:30:00 Test Item Value Reference Range Interpretation Comments Lymphocytes (test code = Lymphocytes) 24.1 20.0-40.0 [facility] CampusRfgojdlDDUHUNOQFU6930-45-67 07:30:00 Test Item Value Reference Range Interpretation Comments Monocytes (test code = Monocytes) 7.0 2.0-12.0 [facility] CampusNrigfrtTVFMAOYFLJ5457-24-22 07:30:00 Test Item Value Reference Range Interpretation Comments Eosinophils (test code = 3.7 See_Comment [A utomated message] The Eosinophils) system which ge nerated this result tra nsmitted reference range : <=4.0. The reference r leo was not used to int erpret this result as normal/abnormal . [facility] CampusKxomwumFMHVFJEDTA6832-50-55 07:30:00 Test Item Value Reference Range Interpretation Comments Basophils (test code = 1.2 See_Comment [Aut omated message] The Basophils) system which ge nerated this result tra nsmitted reference range : <=1.0. The reference r leo was not used to int erpret this result as normal/abnormal . [facility] CampusZjsdwldWTMQSWIDOX7470-48-54 07:30:00 Test Item Value Reference Range Interpretation Comments Neutrophils # (test code = Neutrophils 1.5 1.5-8.1 #) [place]49491-08-08 07:30:00 Test Item Value Reference Range Interpretation Comments Lymphocytes # (test code = Lymphocytes 0.6 1.0-5.5 #) [place] 749491-08-08 07:30:00 Test Item Value Reference Range Interpretation Comments Monocytes # (test code 0.2 See_Comment [Aut omated message] The = Monocytes #) system which generated this result tra nsmitted reference range : <=0.8. The reference r leo was not used to int erpret this result as normal/abnormal . [place] [address]-08-08 07:30:00 Test Item Value Reference Range Interpretation Comments Eosinophils # (test code 0.1 See_Comment [A utomated message] The = Eosinophils #) system whic h generated this result tra nsmitted reference range : <=0.5. The reference r leo was not used to int erpret this result as normal/abnormal . [place] 804351-08-07 09:32:00 Test Item Value Reference Range Interpretation Comments Glucose Lvl (test code = Glucose Lvl) 59 70-99 [place] 804351-08-07 09:32:00 Test Item Value Reference Range Interpretation Comments BUN (test code = BUN) 11 7-22 [place] 804351-08-07 09:32:00 Test Item Value Reference Range Interpretation Comments Creatinine Lvl (test code = Creatinine 2.75 0.50-1.40 Lvl) [place] 804351-08-07 09:32:00 Test Item Value Reference Range Interpretation Comments Sodium Lvl (test code = Sodium Lvl) 138 135-145 [place] 804351-08-07 09:32:00 Test Item Value Reference Range Interpretation Comments Potassium Lvl (test code = Potassium 4.1 3.5-5.1 Lvl) [place] 804351-08-07 09:32:00 Test Item Value Reference Range Interpretation Comments Chloride Lvl (test code = Chloride Lvl) 104 95-109 [place] 804351-08-07 09:32:00 Test Item Value Reference Range Interpretation Comments CO2 (test code = CO2) 29 24-32 [place] [address]-08-07 09:32:00 Test Item Value Reference Range Interpretation Comments Calcium Lvl (test code = Calcium Lvl) 8.3 8.5-10.5 [place] 804351-08-07 09:32:00 Test Item Value Reference Range Interpretation Comments AGAP (test code = AGAP) 9.1 10.0-20.0 [place] 804351-08-07 09:32:00 Test Item Value Reference Range Interpretation Comments eGFR (test code = eGFR) 21 [place] 804351-08-07 09:32:00 Test Item Value Reference Range Interpretation Comments Magnesium Lvl (test code = Magnesium 2.2 1.8-2.4 Lvl) [place] 804351-08-07 09:32:00 Test Item Value Reference Range Interpretation Comments Phosphorus (test code = Phosphorus) 3.9 2.5-4.5 [place] 749491-08-07 09:32:00 Test Item Value Reference Range Interpretation Comments WBC (test code = WBC) 2.3 3.7-10.4 [place] 749491-08-07 09:32:00 Test Item Value Reference Range Interpretation Comments RBC (test code = RBC) 2.78 4.20-5.40 [place] 749491-08-07 09:32:00 Test Item Value Reference Range Interpretation Comments Hgb (test code = Hgb) 8.4 12.0-16.0 [place] 749491-08-07 09:32:00 Test Item Value Reference Range Interpretation Comments Hct (test code = Hct) 25.2 36.0-48.0 [place] 749491-08-07 09:32:00 Test Item Value Reference Range Interpretation Comments MCV (test code = MCV) 90.5 80.0-98.0 [place] 749491-08-07 09:32:00 Test Item Value Reference Range Interpretation Comments MCH (test code = MCH) 30.4 pg 27.0-31.0 [place] 749491-08-07 09:32:00 Test Item Value Reference Range Interpretation Comments MCHC (test code = MCHC) 33.5 32.0-36.0 [place] 749491-08-07 09:32:00 Test Item Value Reference Range Interpretation Comments RDW (test code = RDW) 19.0 11.5-14.5 [place] 749491-08-07 09:32:00 Test Item Value Reference Range Interpretation Comments Platelet (test code = Platelet) 87 133-450 [place] 749491-08-07 09:32:00 Test Item Value Reference Range Interpretation Comments MPV (test code = MPV) 10.0 7.4-10.4 [place] 804351-08-07 09:32:00 Test Item Value Reference Range Interpretation Comments Glucose Lvl (test code = Glucose Lvl) 59 70-99 [place] 804351-08-07 09:32:00 Test Item Value Reference Range Interpretation Comments BUN (test code = BUN) 11 7-22 [place] 804351-08-07 09:32:00 Test Item Value Reference Range Interpretation Comments Creatinine Lvl (test code = Creatinine 2.75 0.50-1.40 Lvl) [place] 804351-08-07 09:32:00 Test Item Value Reference Range Interpretation Comments Sodium Lvl (test code = Sodium Lvl) 138 135-145 [place] 804351-08-07 09:32:00 Test Item Value Reference Range Interpretation Comments Potassium Lvl (test code = Potassium 4.1 3.5-5.1 Lvl) [place] 804351-08-07 09:32:00 Test Item Value Reference Range Interpretation Comments Chloride Lvl (test code = Chloride Lvl) 104 95-109 [place] 804351-08-07 09:32:00 Test Item Value Reference Range Interpretation Comments CO2 (test code = CO2) 29 24-32 [place] 804351-08-07 09:32:00 Test Item Value Reference Range Interpretation Comments Calcium Lvl (test code = Calcium Lvl) 8.3 8.5-10.5 [place] 804351-08-07 09:32:00 Test Item Value Reference Range Interpretation Comments AGAP (test code = AGAP) 9.1 10.0-20.0 [place] 804351-08-07 09:32:00 Test Item Value Reference Range Interpretation Comments eGFR (test code = eGFR) 21 [place] 804351-08-07 09:32:00 Test Item Value Reference Range Interpretation Comments Magnesium Lvl (test code = Magnesium 2.2 1.8-2.4 Lvl) [facility]2021-08-07 09:32:00 Test Item Value Reference Range Interpretation Comments Phosphorus (test code = Phosphorus) 3.9 2.5-4.5 [place] 749491-08-07 09:32:00 Test Item Value Reference Range Interpretation Comments WBC (test code = WBC) 2.3 3.7-10.4 [place] 749491-08-07 09:32:00 Test Item Value Reference Range Interpretation Comments RBC (test code = RBC) 2.78 4.20-5.40 [place] 749491-08-07 09:32:00 Test Item Value Reference Range Interpretation Comments Hgb (test code = Hgb) 8.4 12.0-16.0 [place] 749491-08-07 09:32:00 Test Item Value Reference Range Interpretation Comments Hct (test code = Hct) 25.2 36.0-48.0 [place] 749491-08-07 09:32:00 Test Item Value Reference Range Interpretation Comments MCV (test code = MCV) 90.5 80.0-98.0 [place] 749491-08-07 09:32:00 Test Item Value Reference Range Interpretation Comments MCH (test code = MCH) 30.4 pg 27.0-31.0 [place] 749491-08-07 09:32:00 Test Item Value Reference Range Interpretation Comments MCHC (test code = MCHC) 33.5 32.0-36.0 [place] 749491-08-07 09:32:00 Test Item Value Reference Range Interpretation Comments RDW (test code = RDW) 19.0 11.5-14.5 [place] 749491-08-07 09:32:00 Test Item Value Reference Range Interpretation Comments Platelet (test code = Platelet) 87 133-450 [facility]YqgmyywTXYHKCKUJJ2699-16-39 09:32:00 Test Item Value Reference Range Interpretation Comments MPV (test code = MPV) 10.0 7.4-10.4 [facility]2021-08-07 09:32:00 Test Item Value Reference Range Interpretation Comments Glucose Lvl (test code = Glucose Lvl) 59 70-99 [place] 804351-08-07 09:32:00 Test Item Value Reference Range Interpretation Comments BUN (test code = BUN) 11 7-22 [place] 804351-08-07 09:32:00 Test Item Value Reference Range Interpretation Comments Creatinine Lvl (test code = Creatinine 2.75 0.50-1.40 Lvl) [place] 804351-08-07 09:32:00 Test Item Value Reference Range Interpretation Comments Sodium Lvl (test code = Sodium Lvl) 138 135-145 [place] [address]-08-07 09:32:00 Test Item Value Reference Range Interpretation Comments Potassium Lvl (test code = Potassium 4.1 3.5-5.1 Lvl) [place] 804351-08-07 09:32:00 Test Item Value Reference Range Interpretation Comments Chloride Lvl (test code = Chloride Lvl) 104 95-109 [place] 804351-08-07 09:32:00 Test Item Value Reference Range Interpretation Comments CO2 (test code = CO2) 29 24-32 [place] 804351-08-07 09:32:00 Test Item Value Reference Range Interpretation Comments Calcium Lvl (test code = Calcium Lvl) 8.3 8.5-10.5 [place] 804351-08-07 09:32:00 Test Item Value Reference Range Interpretation Comments AGAP (test code = AGAP) 9.1 10.0-20.0 [place] 804351-08-07 09:32:00 Test Item Value Reference Range Interpretation Comments eGFR (test code = eGFR) 21 [place] 804351-08-07 09:32:00 Test Item Value Reference Range Interpretation Comments Magnesium Lvl (test code = Magnesium 2.2 1.8-2.4 Lvl) [place] 804351-08-07 09:32:00 Test Item Value Reference Range Interpretation Comments Phosphorus (test code = Phosphorus) 3.9 2.5-4.5 [place] 749491-08-07 09:32:00 Test Item Value Reference Range Interpretation Comments WBC (test code = WBC) 2.3 3.7-10.4 [place] 749491-08-07 09:32:00 Test Item Value Reference Range Interpretation Comments RBC (test code = RBC) 2.78 4.20-5.40 [place] 749491-08-07 09:32:00 Test Item Value Reference Range Interpretation Comments Hgb (test code = Hgb) 8.4 12.0-16.0 [place] [address]-08-07 09:32:00 Test Item Value Reference Range Interpretation Comments Hct (test code = Hct) 25.2 36.0-48.0 [place] 749491-08-07 09:32:00 Test Item Value Reference Range Interpretation Comments MCV (test code = MCV) 90.5 80.0-98.0 [place] 749491-08-07 09:32:00 Test Item Value Reference Range Interpretation Comments MCH (test code = MCH) 30.4 pg 27.0-31.0 [place] 749491-08-07 09:32:00 Test Item Value Reference Range Interpretation Comments MCHC (test code = MCHC) 33.5 32.0-36.0 [place] 749491-08-07 09:32:00 Test Item Value Reference Range Interpretation Comments RDW (test code = RDW) 19.0 11.5-14.5 [place] 749491-08-07 09:32:00 Test Item Value Reference Range Interpretation Comments Platelet (test code = Platelet) 87 133-450 [place] 749491-08-07 09:32:00 Test Item Value Reference Range Interpretation Comments MPV (test code = MPV) 10.0 7.4-10.4 [place] 804351-08-07 09:32:00 Test Item Value Reference Range Interpretation Comments Glucose Lvl (test code = Glucose Lvl) 59 70-99 [place] 804351-08-07 09:32:00 Test Item Value Reference Range Interpretation Comments BUN (test code = BUN) 11 7-22 [place] 804351-08-07 09:32:00 Test Item Value Reference Range Interpretation Comments Creatinine Lvl (test code = Creatinine 2.75 0.50-1.40 Lvl) [place] 804351-08-07 09:32:00 Test Item Value Reference Range Interpretation Comments Sodium Lvl (test code = Sodium Lvl) 138 135-145 [place] 804351-08-07 09:32:00 Test Item Value Reference Range Interpretation Comments Potassium Lvl (test code = Potassium 4.1 3.5-5.1 Lvl) [place] 804351-08-07 09:32:00 Test Item Value Reference Range Interpretation Comments Chloride Lvl (test code = Chloride Lvl) 104 95-109 [place] 804351-08-07 09:32:00 Test Item Value Reference Range Interpretation Comments CO2 (test code = CO2) 29 24-32 [place] [address]-08-07 09:32:00 Test Item Value Reference Range Interpretation Comments Calcium Lvl (test code = Calcium Lvl) 8.3 8.5-10.5 [place] 804351-08-07 09:32:00 Test Item Value Reference Range Interpretation Comments AGAP (test code = AGAP) 9.1 10.0-20.0 [place] 804351-08-07 09:32:00 Test Item Value Reference Range Interpretation Comments eGFR (test code = eGFR) 21 [place] 804351-08-07 09:32:00 Test Item Value Reference Range Interpretation Comments Magnesium Lvl (test code = Magnesium 2.2 1.8-2.4 Lvl) [place] 804351-08-07 09:32:00 Test Item Value Reference Range Interpretation Comments Phosphorus (test code = Phosphorus) 3.9 2.5-4.5 [place] 749491-08-07 09:32:00 Test Item Value Reference Range Interpretation Comments WBC (test code = WBC) 2.3 3.7-10.4 [place] [address]-08-07 09:32:00 Test Item Value Reference Range Interpretation Comments RBC (test code = RBC) 2.78 4.20-5.40 [place] [address]-08-07 09:32:00 Test Item Value Reference Range Interpretation Comments Hgb (test code = Hgb) 8.4 12.0-16.0 [place] [address]-08-07 09:32:00 Test Item Value Reference Range Interpretation Comments Hct (test code = Hct) 25.2 36.0-48.0 [place] [address]-08-07 09:32:00 Test Item Value Reference Range Interpretation Comments MCV (test code = MCV) 90.5 80.0-98.0 [place] 749491-08-07 09:32:00 Test Item Value Reference Range Interpretation Comments MCH (test code = MCH) 30.4 pg 27.0-31.0 [place] 749491-08-07 09:32:00 Test Item Value Reference Range Interpretation Comments MCHC (test code = MCHC) 33.5 32.0-36.0 [place] 749491-08-07 09:32:00 Test Item Value Reference Range Interpretation Comments RDW (test code = RDW) 19.0 11.5-14.5 [place] [address]-08-07 09:32:00 Test Item Value Reference Range Interpretation Comments Platelet (test code = Platelet) 87 133-450 [place] 749491-08-07 09:32:00 Test Item Value Reference Range Interpretation Comments MPV (test code = MPV) 10.0 7.4-10.4 [place] 804351-08-07 09:32:00 Test Item Value Reference Range Interpretation Comments Glucose Lvl (test code = Glucose Lvl) 59 70-99 [place] 804351-08-07 09:32:00 Test Item Value Reference Range Interpretation Comments BUN (test code = BUN) 11 7-22 [place] 804351-08-07 09:32:00 Test Item Value Reference Range Interpretation Comments Creatinine Lvl (test code = Creatinine 2.75 0.50-1.40 Lvl) [place] 804351-08-07 09:32:00 Test Item Value Reference Range Interpretation Comments Sodium Lvl (test code = Sodium Lvl) 138 135-145 [place] 804351-08-07 09:32:00 Test Item Value Reference Range Interpretation Comments Potassium Lvl (test code = Potassium 4.1 3.5-5.1 Lvl) [place] 804351-08-07 09:32:00 Test Item Value Reference Range Interpretation Comments Chloride Lvl (test code = Chloride Lvl) 104 95-109 [place] 804351-08-07 09:32:00 Test Item Value Reference Range Interpretation Comments CO2 (test code = CO2) 29 24-32 [place] 804351-08-07 09:32:00 Test Item Value Reference Range Interpretation Comments Calcium Lvl (test code = Calcium Lvl) 8.3 8.5-10.5 [place] 804351-08-07 09:32:00 Test Item Value Reference Range Interpretation Comments AGAP (test code = AGAP) 9.1 10.0-20.0 [place] 804351-08-07 09:32:00 Test Item Value Reference Range Interpretation Comments eGFR (test code = eGFR) 21 [place] 804351-08-07 09:32:00 Test Item Value Reference Range Interpretation Comments Magnesium Lvl (test code = Magnesium 2.2 1.8-2.4 Lvl) [place] 804351-08-07 09:32:00 Test Item Value Reference Range Interpretation Comments Phosphorus (test code = Phosphorus) 3.9 2.5-4.5 [place] 749491-08-07 09:32:00 Test Item Value Reference Range Interpretation Comments WBC (test code = WBC) 2.3 3.7-10.4 [place] 749491-08-07 09:32:00 Test Item Value Reference Range Interpretation Comments RBC (test code = RBC) 2.78 4.20-5.40 [place] 749491-08-07 09:32:00 Test Item Value Reference Range Interpretation Comments Hgb (test code = Hgb) 8.4 12.0-16.0 [place] 749491-08-07 09:32:00 Test Item Value Reference Range Interpretation Comments Hct (test code = Hct) 25.2 36.0-48.0 [place] 749491-08-07 09:32:00 Test Item Value Reference Range Interpretation Comments MCV (test code = MCV) 90.5 80.0-98.0 [place] 749491-08-07 09:32:00 Test Item Value Reference Range Interpretation Comments MCH (test code = MCH) 30.4 pg 27.0-31.0 [place] 749491-08-07 09:32:00 Test Item Value Reference Range Interpretation Comments MCHC (test code = MCHC) 33.5 32.0-36.0 [place] [address]-08-07 09:32:00 Test Item Value Reference Range Interpretation Comments RDW (test code = RDW) 19.0 11.5-14.5 [facility]YrrulhkLSCSHCAGZB1899-41-03 09:32:00 Test Item Value Reference Range Interpretation Comments Platelet (test code = Platelet) 87 133-450 [facility] CampusIwseqrkHLXFLMZRVE3426-47-44 09:32:00 Test Item Value Reference Range Interpretation Comments MPV (test code = MPV) 10.0 7.4-10.4 [facility] HospitalAvantis Medical Systems [facility] [id number] 05:33:00 Test Item Value Reference Range Interpretation Comments ABO/Rh (test code = ABO/Rh) B POS [facility] HospitalLalalama [facility] [id number] 05:33:00 Test Item Value Reference Range Interpretation Comments Antibody Scrn (test Negative (01/24/21 12:33 code = Antibody Scrn) AM) [facility] CampusDadfcbnCEDKKPFZWF5558-08-14 05:33:00 Test Item Value Reference Range Interpretation Comments Segs (test code = Segs) 60.2 45.0-75.0 [facility] CampusAolqcxnYKKIDPIURY1529-03-58 05:33:00 Test Item Value Reference Range Interpretation Comments Lymphocytes (test code = Lymphocytes) 28.6 20.0-40.0 [facility] CampusGtlqpykQYHJVCTGNM0936-82-06 05:33:00 Test Item Value Reference Range Interpretation Comments Monocytes (test code = Monocytes) 5.8 2.0-12.0 [facility] CampusYumeuzoMSGYCBRKMN1927-57-54 05:33:00 Test Item Value Reference Range Interpretation Comments Eosinophils (test code = 4.2 See_Comment [A utomated message] The Eosinophils) system which ge nerated this result tra nsmitted reference range : <=4.0. The reference r leo was not used to int erpret this result as normal/abnormal . [facility] CampusZqkznrhVFCJIUFEIH2419-07-45 05:33:00 Test Item Value Reference Range Interpretation Comments Basophils (test code = 1.2 See_Comment [Aut omated message] The Basophils) system which ge nerated this result tra nsmitted reference range : <=1.0. The reference r leo was not used to int erpret this result as normal/abnormal . [facility] CampusHncnximLSKTLRVGVO0006-66-67 05:33:00 Test Item Value Reference Range Interpretation Comments Neutrophils # (test code = Neutrophils 2.2 1.5-8.1 #) [facility] CampusEarszvdJTZXGEKEVA7854-77-90 05:33:00 Test Item Value Reference Range Interpretation Comments Lymphocytes # (test code = Lymphocytes 1.1 1.0-5.5 #) [facility] CampusNqatkkjKXLVUBACDN6749-24-50 05:33:00 Test Item Value Reference Range Interpretation Comments Monocytes # (test code 0.2 See_Comment [Aut omated message] The = Monocytes #) system which generated this result tra nsmitted reference range : <=0.8. The reference r leo was not used to int erpret this result as normal/abnormal . [facility] CampusPkttdgpGBCNFJFDWS1897-63-35 05:33:00 Test Item Value Reference Range Interpretation Comments Eosinophils # (test code 0.2 See_Comment [A utomated message] The = Eosinophils #) system whic h generated this result tra nsmitted reference range : <=0.5. The reference r leo was not used to int erpret this result as normal/abnormal . [facility]2021-08-06 05:33:00 Test Item Value Reference Range Interpretation Comments ABO/Rh (test code = ABO/Rh) B POS [facility] HospitalWorld Sports NetworkG[facility] [id number] 05:33:00 Test Item Value Reference Range Interpretation Comments Antibody Scrn (test Negative (01/24/21 12:33 code = Antibody Scrn) AM) [facility] CampusMervfrqROZQRVSKFE4966-07-58 05:33:00 Test Item Value Reference Range Interpretation Comments Segs (test code = Segs) 60.2 45.0-75.0 [facility] CampusXefrjleDALSLXVTSI3013-12-63 05:33:00 Test Item Value Reference Range Interpretation Comments Lymphocytes (test code = Lymphocytes) 28.6 20.0-40.0 [facility] CampusOjlkqgjUJLDPXPLBV9267-51-13 05:33:00 Test Item Value Reference Range Interpretation Comments Monocytes (test code = Monocytes) 5.8 2.0-12.0 [facility] CampusDvdcvpnJRCVBEJPJS5804-02-48 05:33:00 Test Item Value Reference Range Interpretation Comments Eosinophils (test code = 4.2 See_Comment [A utomated message] The Eosinophils) system which ge nerated this result tra nsmitted reference range : <=4.0. The reference r leo was not used to int erpret this result as normal/abnormal . [facility] CampusEuuwlraRULOERSFKD8723-65-88 05:33:00 Test Item Value Reference Range Interpretation Comments Basophils (test code = 1.2 See_Comment [Aut omated message] The Basophils) system which ge nerated this result tra nsmitted reference range : <=1.0. The reference r leo was not used to int erpret this result as normal/abnormal . [facility] CampusOcmsqsnMSVYUNVSTI3135-37-08 05:33:00 Test Item Value Reference Range Interpretation Comments Neutrophils # (test code = Neutrophils 2.2 1.5-8.1 #) [facility] CampusNxtxuipCTZZHFJUNY0429-90-41 05:33:00 Test Item Value Reference Range Interpretation Comments Lymphocytes # (test code = Lymphocytes 1.1 1.0-5.5 #) [facility] CampusNqaoyopXLXRDLZYHH2493-86-28 05:33:00 Test Item Value Reference Range Interpretation Comments Monocytes # (test code 0.2 See_Comment [Aut omated message] The = Monocytes #) system which generated this result tra nsmitted reference range : <=0.8. The reference r leo was not used to int erpret this result as normal/abnormal . [facility] CampusFnxllgyZEEDWDOLIK8543-74-84 05:33:00 Test Item Value Reference Range Interpretation Comments Eosinophils # (test code 0.2 See_Comment [A utomated message] The = Eosinophils #) system whic h generated this result tra nsmitted reference range : <=0.5. The reference r leo was not used to int erpret this result as normal/abnormal . [facility] HospitalAvantis Medical Systems [facility] [id number] 05:33:00 Test Item Value Reference Range Interpretation Comments ABO/Rh (test code = ABO/Rh) B POS [facility]Rod[facility] [id number] 05:33:00 Test Item Value Reference Range Interpretation Comments Antibody Scrn (test Negative (01/24/21 12:33 code = Antibody Scrn) AM) [facility] CampusIradmprLMRLHQCIRJ0314-26-04 05:33:00 Test Item Value Reference Range Interpretation Comments Segs (test code = Segs) 60.2 45.0-75.0 [facility] CampusCzftttwVOEDXYDIDZ7437-87-22 05:33:00 Test Item Value Reference Range Interpretation Comments Lymphocytes (test code = Lymphocytes) 28.6 20.0-40.0 [place] 749491-08-06 05:33:00 Test Item Value Reference Range Interpretation Comments Monocytes (test code = Monocytes) 5.8 2.0-12.0 [facility] CampusRisynkfLOGQVEEHXQ9515-41-52 05:33:00 Test Item Value Reference Range Interpretation Comments Eosinophils (test code = 4.2 See_Comment [A utomated message] The Eosinophils) system which ge nerated this result tra nsmitted reference range : <=4.0. The reference r leo was not used to int erpret this result as normal/abnormal . [facility] CampusUoseithWBDZKGXPTD5854-40-03 05:33:00 Test Item Value Reference Range Interpretation Comments Basophils (test code = 1.2 See_Comment [Aut omated message] The Basophils) system which ge nerated this result tra nsmitted reference range : <=1.0. The reference r leo was not used to int erpret this result as normal/abnormal . [facility] CampusWixncqaMLDOZAWCPQ0317-14-94 05:33:00 Test Item Value Reference Range Interpretation Comments Neutrophils # (test code = Neutrophils 2.2 1.5-8.1 #) [facility] CampusUtzlnqoRANEXLEIGD1252-98-28 05:33:00 Test Item Value Reference Range Interpretation Comments Lymphocytes # (test code = Lymphocytes 1.1 1.0-5.5 #) [facility] CampusHjjpagcZPVVIZAHLF6359-14-81 05:33:00 Test Item Value Reference Range Interpretation Comments Monocytes # (test code 0.2 See_Comment [Aut omated message] The = Monocytes #) system which generated this result tra nsmitted reference range : <=0.8. The reference r leo was not used to int erpret this result as normal/abnormal . [facility] CampusGwenezzIAQXGBLVMR7231-69-25 05:33:00 Test Item Value Reference Range Interpretation Comments Eosinophils # (test code 0.2 See_Comment [A utomated message] The = Eosinophils #) system whic h generated this result tra nsmitted reference range : <=0.5. The reference r leo was not used to int erpret this result as normal/abnormal . [facility] HospitalAvantis Medical Systems [facility] PRESBYTERIANTHTZEGQ6954-99-08 05:33:00 Test Item Value Reference Range Interpretation Comments ABO/Rh (test code = ABO/Rh) B POS [facility] HospitalA[facility] Systems [facility] PRESBYTERIANYTCAOXV9725-23-15 05:33:00 Test Item Value Reference Range Interpretation Comments Antibody Scrn (test Negative (01/24/21 12:33 code = Antibody Scrn) AM) [place] 749491-08-06 05:33:00 Test Item Value Reference Range Interpretation Comments Segs (test code = Segs) 60.2 45.0-75.0 [place] 749491-08-06 05:33:00 Test Item Value Reference Range Interpretation Comments Lymphocytes (test code = Lymphocytes) 28.6 20.0-40.0 [place] 749491-08-06 05:33:00 Test Item Value Reference Range Interpretation Comments Monocytes (test code = Monocytes) 5.8 2.0-12.0 [place] 749491-08-06 05:33:00 Test Item Value Reference Range Interpretation Comments Eosinophils (test code = 4.2 See_Comment [A utomated message] The Eosinophils) system which ge nerated this result tra nsmitted reference range : <=4.0. The reference r leo was not used to int erpret this result as normal/abnormal . [place] 749491-08-06 05:33:00 Test Item Value Reference Range Interpretation Comments Basophils (test code = 1.2 See_Comment [Aut omated message] The Basophils) system which ge nerated this result tra nsmitted reference range : <=1.0. The reference r leo was not used to int erpret this result as normal/abnormal . [facility] CampusLputcfvJJUVUKKPKP9737-86-51 05:33:00 Test Item Value Reference Range Interpretation Comments Neutrophils # (test code = Neutrophils 2.2 1.5-8.1 #) [place] 749491-08-06 05:33:00 Test Item Value Reference Range Interpretation Comments Lymphocytes # (test code = Lymphocytes 1.1 1.0-5.5 #) [place] 749491-08-06 05:33:00 Test Item Value Reference Range Interpretation Comments Monocytes # (test code 0.2 See_Comment [Aut omated message] The = Monocytes #) system which generated this result tra nsmitted reference range : <=0.8. The reference r leo was not used to int erpret this result as normal/abnormal . [place] 749491-08-06 05:33:00 Test Item Value Reference Range Interpretation Comments Eosinophils # (test code 0.2 See_Comment [A utomated message] The = Eosinophils #) system whic h generated this result tra nsmitted reference range : <=0.5. The reference r leo was not used to int erpret this result as normal/abnormal . [facility] TWLQDWX5059-75-18 05:33:00 Test Item Value Reference Range Interpretation Comments ABO/Rh (test code = ABO/Rh) B POS [facility] DAQJNFI4354-64-43 05:33:00 Test Item Value Reference Range Interpretation Comments Antibody Scrn (test Negative (01/24/21 12:33 code = Antibody Scrn) AM) [facility] CampusBtytppmEXOFJTXFPN6668-95-57 05:33:00 Test Item Value Reference Range Interpretation Comments Segs (test code = Segs) 60.2 45.0-75.0 [facility] CampusStigsyaCESOUMRBOC3893-85-16 05:33:00 Test Item Value Reference Range Interpretation Comments Lymphocytes (test code = Lymphocytes) 28.6 20.0-40.0 [facility] CampusXhrrpuwYGOBCCOUSE1538-10-85 05:33:00 Test Item Value Reference Range Interpretation Comments Monocytes (test code = Monocytes) 5.8 2.0-12.0 [facility] CampusKimhpctOCCBWKQYFU4541-88-94 05:33:00 Test Item Value Reference Range Interpretation Comments Eosinophils (test code = 4.2 See_Comment [A utomated message] The Eosinophils) system which ge nerated this result tra nsmitted reference range : <=4.0. The reference r leo was not used to int erpret this result as normal/abnormal . [facility] CampusZxejpufCLAZGIYECF0123-53-75 05:33:00 Test Item Value Reference Range Interpretation Comments Basophils (test code = 1.2 See_Comment [Aut omated message] The Basophils) system which ge nerated this result tra nsmitted reference range : <=1.0. The reference r leo was not used to int erpret this result as normal/abnormal . [facility] CampusBpsbcerGAUUEKEKXP0966-42-15 05:33:00 Test Item Value Reference Range Interpretation Comments Neutrophils # (test code = Neutrophils 2.2 1.5-8.1 #) [facility] CampusNexrshgSQHPULXBNC2323-22-38 05:33:00 Test Item Value Reference Range Interpretation Comments Lymphocytes # (test code = Lymphocytes 1.1 1.0-5.5 #) [facility] CampusKqtsgfiETNPEDRZFO8381-60-05 05:33:00 Test Item Value Reference Range Interpretation Comments Monocytes # (test code 0.2 See_Comment [Aut omated message] The = Monocytes #) system which generated this result tra nsmitted reference range : <=0.8. The reference r leo was not used to int erpret this result as normal/abnormal . [place] 749491-08-06 05:33:00 Test Item Value Reference Range Interpretation Comments Eosinophils # (test code 0.2 See_Comment [A utomated message] The = Eosinophils #) system whic h generated this result tra nsmitted reference range : <=0.5. The reference r leo was not used to int erpret this result as normal/abnormal . [facility] CampusNmqcbauHNKQPZQMLR1834-20-73 05:53:00 Test Item Value Reference Range Interpretation Comments PT (test code = PT) 14.4 s 12.0-14.7 [place] 749491-08-05 05:53:00 Test Item Value Reference Range Interpretation Comments INR (test code = INR) 1.13 1 0.85-1.17 [place] 749491-08-05 05:53:00 Test Item Value Reference Range Interpretation Comments Fibrinogen Lvl (test code = Fibrinogen 319 230-510 Lvl) [facility] CampusMfmjaaeGBNQCVBHQC3673-10-83 05:53:00 Test Item Value Reference Range Interpretation Comments Thrombin Time (test code = Thrombin 15.9 s 15.0-21.2 Time) [facility] CampusJrufrkcJKAENSJNNY0806-45-80 05:53:00 Test Item Value Reference Range Interpretation Comments PTT (test code = PTT) 47.0 s 22.9-35.8 [place] 749491-08-05 05:53:00 Test Item Value Reference Range Interpretation Comments D-Dimer (test code = D-Dimer) 0.91 [place] 749491-08-05 05:53:00 Test Item Value Reference Range Interpretation Comments Basophils # (test code 0.1 See_Comment [Aut omated message] The = Basophils #) system which generated this result tra nsmitted reference range : <=0.2. The reference r leo was not used to int erpret this result as normal/abnormal . [facility]2021-08-05 05:53:00 Test Item Value Reference Range Interpretation Comments Ca Ion WB (test code = Ca Ion WB) 1.24 1.05-1.25 [place] 273611-08-05 05:53:00 Test Item Value Reference Range Interpretation Comments Ca Norm WB (test code = Ca Norm WB) 1.25 1.05-1.25 [place] 749491-08-05 05:53:00 Test Item Value Reference Range Interpretation Comments PT (test code = PT) 14.4 s 12.0-14.7 [facility] CampusAdwcstuRHTSVKJKDF6448-64-94 05:53:00 Test Item Value Reference Range Interpretation Comments INR (test code = INR) 1.13 1 0.85-1.17 [place] 749491-08-05 05:53:00 Test Item Value Reference Range Interpretation Comments Fibrinogen Lvl (test code = Fibrinogen 319 230-510 Lvl) [facility] CampusSzujqdrJBYJEJHDSO2120-72-40 05:53:00 Test Item Value Reference Range Interpretation Comments Thrombin Time (test code = Thrombin 15.9 s 15.0-21.2 Time) [facility] CampusFcmjdnhUDIPVUXEDZ2505-01-47 05:53:00 Test Item Value Reference Range Interpretation Comments PTT (test code = PTT) 47.0 s 22.9-35.8 [place] 749491-08-05 05:53:00 Test Item Value Reference Range Interpretation Comments D-Dimer (test code = D-Dimer) 0.91 [place] [address]-08-05 05:53:00 Test Item Value Reference Range Interpretation Comments Basophils # (test code 0.1 See_Comment [Aut omated message] The = Basophils #) system which generated this result tra nsmitted reference range : <=0.2. The reference r leo was not used to int erpret this result as normal/abnormal . [facility]2021-08-05 05:53:00 Test Item Value Reference Range Interpretation Comments Ca Ion WB (test code = Ca Ion WB) 1.24 1.05-1.25 [facility]2021-08-05 05:53:00 Test Item Value Reference Range Interpretation Comments Ca Norm WB (test code = Ca Norm WB) 1.25 1.05-1.25 [facility] CampusYqienwbRDYUGNZLSH7948-69-66 05:53:00 Test Item Value Reference Range Interpretation Comments PT (test code = PT) 14.4 s 12.0-14.7 [facility] CampusRadaeigFKQHXXMAGV6771-12-63 05:53:00 Test Item Value Reference Range Interpretation Comments INR (test code = INR) 1.13 1 0.85-1.17 [facility] CampusRphamazOJZZVMFGKD8482-86-47 05:53:00 Test Item Value Reference Range Interpretation Comments Fibrinogen Lvl (test code = Fibrinogen 319 230-510 Lvl) [facility] CampusCyciyzdFMPMDWOHRB5816-85-77 05:53:00 Test Item Value Reference Range Interpretation Comments Thrombin Time (test code = Thrombin 15.9 s 15.0-21.2 Time) [facility] CampusZoinsbtGXPXRQGUMY5879-12-28 05:53:00 Test Item Value Reference Range Interpretation Comments PTT (test code = PTT) 47.0 s 22.9-35.8 [facility] CampusAdjfzhkTOTOMBFXOK8548-60-11 05:53:00 Test Item Value Reference Range Interpretation Comments D-Dimer (test code = D-Dimer) 0.91 [facility] CampusIyseskdTCJBECTNMV6909-05-13 05:53:00 Test Item Value Reference Range Interpretation Comments Basophils # (test code 0.1 See_Comment [Aut omated message] The = Basophils #) system which generated this result tra nsmitted reference range : <=0.2. The reference r leo was not used to int erpret this result as normal/abnormal . [facility]ATHYROID AKTFVME9606-07-86 05:53:00 Test Item Value Reference Range Interpretation Comments Ca Ion WB (test code = Ca Ion WB) 1.24 1.05-1.25 [facility] HospitalPARATHYROID BQIXHXC0998-86-47 05:53:00 Test Item Value Reference Range Interpretation Comments Ca Norm WB (test code = Ca Norm WB) 1.25 1.05-1.25 [facility] CampusPtcprzsNCVGDBYORA0826-68-48 05:53:00 Test Item Value Reference Range Interpretation Comments PT (test code = PT) 14.4 s 12.0-14.7 [facility] CampusGdtqwzbCVIRAUHDUE2716-90-45 05:53:00 Test Item Value Reference Range Interpretation Comments INR (test code = INR) 1.13 1 0.85-1.17 [facility] CampusYnrzhptYYANBXEFNG5585-14-21 05:53:00 Test Item Value Reference Range Interpretation Comments Fibrinogen Lvl (test code = Fibrinogen 319 230-510 Lvl) [facility] CampusDavibyyPDJBZVSUXM5998-62-64 05:53:00 Test Item Value Reference Range Interpretation Comments Thrombin Time (test code = Thrombin 15.9 s 15.0-21.2 Time) [place] 749491-08-05 05:53:00 Test Item Value Reference Range Interpretation Comments PTT (test code = PTT) 47.0 s 22.9-35.8 [facility] CampusJftievtCCJTKIBALK4691-78-16 05:53:00 Test Item Value Reference Range Interpretation Comments D-Dimer (test code = D-Dimer) 0.91 [place] 749491-08-05 05:53:00 Test Item Value Reference Range Interpretation Comments Basophils # (test code 0.1 See_Comment [Aut omated message] The = Basophils #) system which generated this result tra nsmitted reference range : <=0.2. The reference r leo was not used to int erpret this result as normal/abnormal . [facility] CenterRO[facility] LDLYTPD7657-40-72 05:53:00 Test Item Value Reference Range Interpretation Comments Ca Ion WB (test code = Ca Ion WB) 1.24 1.05-1.25 [facility] CenterRO[facility] [id number] 05:53:00 Test Item Value Reference Range Interpretation Comments Ca Norm WB (test code = Ca Norm WB) 1.25 1.05-1.25 [place] 749491-08-05 05:53:00 Test Item Value Reference Range Interpretation Comments PT (test code = PT) 14.4 s 12.0-14.7 [place] 749491-08-05 05:53:00 Test Item Value Reference Range Interpretation Comments INR (test code = INR) 1.13 1 0.85-1.17 [place] 749491-08-05 05:53:00 Test Item Value Reference Range Interpretation Comments Fibrinogen Lvl (test code = Fibrinogen 319 230-510 Lvl) [place] 749491-08-05 05:53:00 Test Item Value Reference Range Interpretation Comments Thrombin Time (test code = Thrombin 15.9 s 15.0-21.2 Time) [place] 749491-08-05 05:53:00 Test Item Value Reference Range Interpretation Comments PTT (test code = PTT) 47.0 s 22.9-35.8 [place] 749491-08-05 05:53:00 Test Item Value Reference Range Interpretation Comments D-Dimer (test code = D-Dimer) 0.91 [place] [address]-08-05 05:53:00 Test Item Value Reference Range Interpretation Comments Basophils # (test code 0.1 See_Comment [Aut omated message] The = Basophils #) system which generated this result tra nsmitted reference range : <=0.2. The reference r leo was not used to int erpret this result as normal/abnormal . [facility]2021-08-05 05:53:00 Test Item Value Reference Range Interpretation Comments Ca Ion WB (test code = Ca Ion WB) 1.24 1.05-1.25 [place] 273611-08-05 05:53:00 Test Item Value Reference Range Interpretation Comments Ca Norm WB (test code = Ca Norm WB) 1.25 1.05-1.25 [facility] [id number] 10:09:00 Test Item Value Reference Range Interpretation Comments ALT (test code = ALT) 49 See_Comment [Auto mated message] The system which ge nerated this result transmit rohit reference range : <=65. The reference range was not used to interpr et this result as reji l/abnormal. [facility] [id number] 10:09:00 Test Item Value Reference Range Interpretation Comments Albumin Lvl (test code = Albumin Lvl) 2.8 3.5-5.0 [facility] PZFBJ0829-07-97 10:09:00 Test Item Value Reference Range Interpretation Comments Alk Phos (test code = Alk Phos) 41 39-136 [facility] [id number] 10:09:00 Test Item Value Reference Range Interpretation Comments Bili Direct (test code 0.2 See_Comment [Aut omated message] The = Bili Direct) system which generated this result tra nsmitted reference range : <=0.3. The reference r leo was not used to int erpret this result as reji l/abnormal. [facility] [id number] 10:09:00 Test Item Value Reference Range Interpretation Comments Bili Total (test code = Bili Total) 0.6 0.2-1.3 [facility] HospitalSolarNOW [id number] 10:09:00 Test Item Value Reference Range Interpretation Comments Bili Indirect (test 0.4 See_Comment [Automa rohit message] The code = Bili Indirect) system which generated this result tra nsmitted reference range : <=1.0. The reference r leo was not used to int erpret this result as normal/abnormal . [facility]Comp[facility] [id number] 10:09:00 Test Item Value Reference Range Interpretation Comments Total Protein (test code = Total 5.6 6.4-8.4 Protein) [facility] HospitalSolarNOW [id number] 10:09:00 Test Item Value Reference Range Interpretation Comments AST (test code = AST) 33 See_Comment [Auto mated message] The system which ge nerated this result transmit rohit reference range : <=37. The reference range was not used to interpr et this result as reji l/abnormal. [facility] [id number] 10:09:00 Test Item Value Reference Range Interpretation Comments Globulin (test code = Globulin) 2.8 2.7-4.2 [facility] [id number] 10:09:00 Test Item Value Reference Range Interpretation Comments A/G Ratio (test code = A/G Ratio) 1.0 1 0.7-1.6 [facility] [id number] 10:09:00 Test Item Value Reference Range Interpretation Comments Amylase Lvl (test code = Amylase Lvl) 19 25-115 [facility] [id number] 10:09:00 Test Item Value Reference Range Interpretation Comments Lipase Lvl (test code = Lipase Lvl) no gt 73-393 [facility] HospitalPuaxjxcXANQEEPUJO3672-62-85 10:09:00 Test Item Value Reference Range Interpretation Comments PTT (test code = PTT) 41.4 s 22.9-35.8 [facility] HospitalKjfxumjOMRLASBQKI4964-39-71 10:09:00 Test Item Value Reference Range Interpretation Comments PT (test code = PT) 15.4 s 12.0-14.7 [facility] HospitalSmhuwpiKYZDELPWET7538-56-70 10:09:00 Test Item Value Reference Range Interpretation Comments INR (test code = INR) 1.24 1 0.85-1.17 [facility]QqgowceACZXPPGWRT8835-22-65 10:09:00 Test Item Value Reference Range Interpretation Comments Fibrinogen Lvl (test code = Fibrinogen 312 230-510 Lvl) [facility]PgwfhndXWIZNSOCFZ2389-38-62 10:09:00 Test Item Value Reference Range Interpretation Comments Thrombin Time (test code = Thrombin 16.6 s 15.0-21.2 Time) [facility] CampusVjpndelPEEDALLNLJ8165-53-78 10:09:00 Test Item Value Reference Range Interpretation Comments D-Dimer (test code = D-Dimer) 4.91 [facility] CampusQwutjmtUHHLGWFKUF0337-86-51 10:09:00 Test Item Value Reference Range Interpretation Comments Basophils # (test code 0.1 See_Comment [Aut omated message] The = Basophils #) system which generated this result tra nsmitted reference range : <=0.2. The reference r leo was not used to int erpret this result as normal/abnormal . [facility] [id number] 10:09:00 Test Item Value Reference Range Interpretation Comments Hgb A1C (test code = Hgb A1C) 5.6 [facility] [id number] 10:09:00 Test Item Value Reference Range Interpretation Comments ALT (test code = ALT) 49 See_Comment [Auto mated message] The system which ge nerated this result transmit rohit reference range : <=65. The reference range was not used to interpr et this result as reji l/abnormal. [facility] [id number] 10:09:00 Test Item Value Reference Range Interpretation Comments Albumin Lvl (test code = Albumin Lvl) 2.8 3.5-5.0 [facility] [id number] 10:09:00 Test Item Value Reference Range Interpretation Comments Alk Phos (test code = Alk Phos) 41 39-136 [facility] [id number] 10:09:00 Test Item Value Reference Range Interpretation Comments Bili Direct (test code 0.2 See_Comment [Aut omated message] The = Bili Direct) system which generated this result tra nsmitted reference range : <=0.3. The reference r leo was not used to int erpret this result as reji l/abnormal. [facility] [employer] [id number] 10:09:00 Test Item Value Reference Range Interpretation Comments Bili Total (test code = Bili Total) 0.6 0.2-1.3 [facility] [id number] 10:09:00 Test Item Value Reference Range Interpretation Comments Bili Indirect (test 0.4 See_Comment [Automa rohit message] The code = Bili Indirect) system which generated this result tra nsmitted reference range : <=1.0. The reference r leo was not used to int erpret this result as normal/abnormal . [facility] [employer] [id number] 10:09:00 Test Item Value Reference Range Interpretation Comments Total Protein (test code = Total 5.6 6.4-8.4 Protein) [facility] [id number] 10:09:00 Test Item Value Reference Range Interpretation Comments AST (test code = AST) 33 See_Comment [Auto mated message] The system which ge nerated this result transmit rohit reference range : <=37. The reference range was not used to interpr et this result as reji l/abnormal. [facility] [employer] [id number] 10:09:00 Test Item Value Reference Range Interpretation Comments Globulin (test code = Globulin) 2.8 2.7-4.2 [facility] [employer] [id number] 10:09:00 Test Item Value Reference Range Interpretation Comments A/G Ratio (test code = A/G Ratio) 1.0 1 0.7-1.6 [facility] [employer] [id number] 10:09:00 Test Item Value Reference Range Interpretation Comments Amylase Lvl (test code = Amylase Lvl) 19 25-115 [facility] [employer] [id number] 10:09:00 Test Item Value Reference Range Interpretation Comments Lipase Lvl (test code = Lipase Lvl) no gt 73-393 [facility] HospitalPlkwpjcFDJAYIAMZC2241-58-53 10:09:00 Test Item Value Reference Range Interpretation Comments PTT (test code = PTT) 41.4 s 22.9-35.8 [facility] HospitalLkuelchTLSDQMXOGK9641-22-88 10:09:00 Test Item Value Reference Range Interpretation Comments PT (test code = PT) 15.4 s 12.0-14.7 [place] [id number] 10:09:00 Test Item Value Reference Range Interpretation Comments INR (test code = INR) 1.24 1 0.85-1.17 [place] [id number] 10:09:00 Test Item Value Reference Range Interpretation Comments Fibrinogen Lvl (test code = Fibrinogen 312 230-510 Lvl) [place] 749491-08-04 10:09:00 Test Item Value Reference Range Interpretation Comments Thrombin Time (test code = Thrombin 16.6 s 15.0-21.2 Time) [facility] CampusFwjoqnxJGNJJGMUGD0523-78-30 10:09:00 Test Item Value Reference Range Interpretation Comments D-Dimer (test code = D-Dimer) 4.91 [place] [address]-08-04 10:09:00 Test Item Value Reference Range Interpretation Comments Basophils # (test code 0.1 See_Comment [Aut omated message] The = Basophils #) system which generated this result tra nsmitted reference range : <=0.2. The reference r leo was not used to int erpret this result as normal/abnormal . [facility] [id number] 10:09:00 Test Item Value Reference Range Interpretation Comments Hgb A1C (test code = Hgb A1C) 5.6 [facility] [id number] 10:09:00 Test Item Value Reference Range Interpretation Comments ALT (test code = ALT) 49 See_Comment [Auto mated message] The system which ge nerated this result transmit rohit reference range : <=65. The reference range was not used to interpr et this result as reji l/abnormal. [facility] [id number] 10:09:00 Test Item Value Reference Range Interpretation Comments Albumin Lvl (test code = Albumin Lvl) 2.8 3.5-5.0 [facility] [id number] 10:09:00 Test Item Value Reference Range Interpretation Comments Alk Phos (test code = Alk Phos) 41 39-136 [facility]2021-08-04 10:09:00 Test Item Value Reference Range Interpretation Comments Bili Direct (test code 0.2 See_Comment [Aut omated message] The = Bili Direct) system which generated this result tra nsmitted reference range : <=0.3. The reference r leo was not used to int erpret this result as reji l/abnormal. [facility] [id number] 10:09:00 Test Item Value Reference Range Interpretation Comments Bili Total (test code = Bili Total) 0.6 0.2-1.3 [facility] [id number] 10:09:00 Test Item Value Reference Range Interpretation Comments Bili Indirect (test 0.4 See_Comment [Automa rohit message] The code = Bili Indirect) system which generated this result tra nsmitted reference range : <=1.0. The reference r leo was not used to int erpret this result as normal/abnormal . [facility] [id number] 10:09:00 Test Item Value Reference Range Interpretation Comments Total Protein (test code = Total 5.6 6.4-8.4 Protein) [facility] [id number] 10:09:00 Test Item Value Reference Range Interpretation Comments AST (test code = AST) 33 See_Comment [Auto mated message] The system which ge nerated this result transmit rohit reference range : <=37. The reference range was not used to interpr et this result as reji l/abnormal. [facility] [id number] 10:09:00 Test Item Value Reference Range Interpretation Comments Globulin (test code = Globulin) 2.8 2.7-4.2 [facility] [id number] 10:09:00 Test Item Value Reference Range Interpretation Comments A/G Ratio (test code = A/G Ratio) 1.0 1 0.7-1.6 [facility] [id number] 10:09:00 Test Item Value Reference Range Interpretation Comments Amylase Lvl (test code = Amylase Lvl) 19 25-115 [facility] [id number] 10:09:00 Test Item Value Reference Range Interpretation Comments Lipase Lvl (test code = Lipase Lvl) no gt 73-393 [facility] HospitalGnguydxTPIJIJTGZP9106-10-09 10:09:00 Test Item Value Reference Range Interpretation Comments PTT (test code = PTT) 41.4 s 22.9-35.8 [facility] HospitalJitjnotCFLFQIHQGX3258-78-93 10:09:00 Test Item Value Reference Range Interpretation Comments PT (test code = PT) 15.4 s 12.0-14.7 [facility] HospitalBmtoxnxMHMTTCJDMI5302-23-87 10:09:00 Test Item Value Reference Range Interpretation Comments INR (test code = INR) 1.24 1 0.85-1.17 [facility] HospitalSbcrfpsTIYDTBZDCV1122-47-36 10:09:00 Test Item Value Reference Range Interpretation Comments Fibrinogen Lvl (test code = Fibrinogen 312 230-510 Lvl) [facility] HospitalYdukcdjAAIIGHZTWI6780-84-29 10:09:00 Test Item Value Reference Range Interpretation Comments Thrombin Time (test code = Thrombin 16.6 s 15.0-21.2 Time) [facility] CampusJbkerjuQEEEZFGPMG3116-33-26 10:09:00 Test Item Value Reference Range Interpretation Comments D-Dimer (test code = D-Dimer) 4.91 [facility] CampusVsewmvyPYLWRLYYUJ7641-73-88 10:09:00 Test Item Value Reference Range Interpretation Comments Basophils # (test code 0.1 See_Comment [Aut omated message] The = Basophils #) system which generated this result tra nsmitted reference range : <=0.2. The reference r leo was not used to int erpret this result as normal/abnormal . [facility] HLXPMFMSP0901-16-96 10:09:00 Test Item Value Reference Range Interpretation Comments Hgb A1C (test code = Hgb A1C) 5.6 [facility] [id number] 10:09:00 Test Item Value Reference Range Interpretation Comments ALT (test code = ALT) 49 See_Comment [Auto mated message] The system which ge nerated this result transmit rohit reference range : <=65. The reference range was not used to interpr et this result as reji l/abnormal. [facility] [employer] [id number] 10:09:00 Test Item Value Reference Range Interpretation Comments Albumin Lvl (test code = Albumin Lvl) 2.8 3.5-5.0 [facility] [employer] [id number] 10:09:00 Test Item Value Reference Range Interpretation Comments Alk Phos (test code = Alk Phos) 41 39-136 [facility] [id number] 10:09:00 Test Item Value Reference Range Interpretation Comments Bili Direct (test code 0.2 See_Comment [Aut omated message] The = Bili Direct) system which generated this result tra nsmitted reference range : <=0.3. The reference r leo was not used to int erpret this result as reji l/abnormal. [facility] [id number] 10:09:00 Test Item Value Reference Range Interpretation Comments Bili Total (test code = Bili Total) 0.6 0.2-1.3 [facility] [id number] 10:09:00 Test Item Value Reference Range Interpretation Comments Bili Indirect (test 0.4 See_Comment [Automa rohit message] The code = Bili Indirect) system which generated this result tra nsmitted reference range : <=1.0. The reference r leo was not used to int erpret this result as normal/abnormal . [facility] [id number] 10:09:00 Test Item Value Reference Range Interpretation Comments Total Protein (test code = Total 5.6 6.4-8.4 Protein) [facility] [id number] 10:09:00 Test Item Value Reference Range Interpretation Comments AST (test code = AST) 33 See_Comment [Auto mated message] The system which ge nerated this result transmit rohit reference range : <=37. The reference range was not used to interpr et this result as reji l/abnormal. [facility] [id number] 10:09:00 Test Item Value Reference Range Interpretation Comments Globulin (test code = Globulin) 2.8 2.7-4.2 [facility] [id number] 10:09:00 Test Item Value Reference Range Interpretation Comments A/G Ratio (test code = A/G Ratio) 1.0 1 0.7-1.6 [facility] [id number] 10:09:00 Test Item Value Reference Range Interpretation Comments Amylase Lvl (test code = Amylase Lvl) 19 25-115 [facility] [id number] 10:09:00 Test Item Value Reference Range Interpretation Comments Lipase Lvl (test code = [place] [address] [facility] CampusGrxmdhbXGAVXXAMID2317-30-05 10:09:00 Test Item Value Reference Range Interpretation Comments PTT (test code = PTT) 41.4 s 22.9-35.8 [facility] HospitalYexdavaJTUEBBFWNC7961-04-79 10:09:00 Test Item Value Reference Range Interpretation Comments PT (test code = PT) 15.4 s 12.0-14.7 [facility] HospitalDflpwcyIGRAZHNLZE4018-24-08 10:09:00 Test Item Value Reference Range Interpretation Comments INR (test code = INR) 1.24 1 0.85-1.17 [facility] HospitalGjsgifvBYWMTRFGTE8833-40-74 10:09:00 Test Item Value Reference Range Interpretation Comments Fibrinogen Lvl (test code = Fibrinogen 312 230-510 Lvl) [facility] H[id number] 10:09:00 Test Item Value Reference Range Interpretation Comments Thrombin Time (test code = Thrombin 16.6 s 15.0-21.2 Time) [facility] CampusKgnjjvaCAGPDRUYPH0260-23-87 10:09:00 Test Item Value Reference Range Interpretation Comments D-Dimer (test code = D-Dimer) 4.91 [facility] C[id number] 10:09:00 Test Item Value Reference Range Interpretation Comments Basophils # (test code 0.1 See_Comment [Aut omated message] The = Basophils #) system which generated this result tra nsmitted reference range : <=0.2. The reference r leo was not used to int erpret this result as normal/abnormal . [facility] OQRFXJUQG2682-12-58 10:09:00 Test Item Value Reference Range Interpretation Comments Hgb A1C (test code = Hgb A1C) 5.6 [facility] [id number] 10:09:00 Test Item Value Reference Range Interpretation Comments ALT (test code = ALT) 49 See_Comment [Auto mated message] The system which ge nerated this result transmit rohit reference range : <=65. The reference range was not used to interpr et this result as reji l/abnormal. [facility] [employer] [id number] 10:09:00 Test Item Value Reference Range Interpretation Comments Albumin Lvl (test code = Albumin Lvl) 2.8 3.5-5.0 [facility] [employer] [id number] 10:09:00 Test Item Value Reference Range Interpretation Comments Alk Phos (test code = Alk Phos) 41 39-136 [facility] [id number] 10:09:00 Test Item Value Reference Range Interpretation Comments Bili Direct (test code 0.2 See_Comment [Aut omated message] The = Bili Direct) system which generated this result tra nsmitted reference range : <=0.3. The reference r leo was not used to int erpret this result as reji l/abnormal. [facility] [id number] 10:09:00 Test Item Value Reference Range Interpretation Comments Bili Total (test code = Bili Total) 0.6 0.2-1.3 [facility] [id number] 10:09:00 Test Item Value Reference Range Interpretation Comments Bili Indirect (test 0.4 See_Comment [Automa rohit message] The code = Bili Indirect) system which generated this result tra nsmitted reference range : <=1.0. The reference r leo was not used to int erpret this result as normal/abnormal . [facility] [id number] 10:09:00 Test Item Value Reference Range Interpretation Comments Total Protein (test code = Total 5.6 6.4-8.4 Protein) [facility] [id number] 10:09:00 Test Item Value Reference Range Interpretation Comments AST (test code = AST) 33 See_Comment [Auto mated message] The system which ge nerated this result transmit rohit reference range : <=37. The reference range was not used to interpr et this result as reji l/abnormal. [facility] [id number] 10:09:00 Test Item Value Reference Range Interpretation Comments Globulin (test code = Globulin) 2.8 2.7-4.2 [facility] [id number] 10:09:00 Test Item Value Reference Range Interpretation Comments A/G Ratio (test code = A/G Ratio) 1.0 1 0.7-1.6 [facility] [id number] 10:09:00 Test Item Value Reference Range Interpretation Comments Amylase Lvl (test code = Amylase Lvl) 19 25-115 [facility] [id number] 10:09:00 Test Item Value Reference Range Interpretation Comments Lipase Lvl (test code = Lipase Lvl) no gt 93-393 [facility] HospitalExhelijCLPYSVGKGH9066-68-28 10:09:00 Test Item Value Reference Range Interpretation Comments PTT (test code = PTT) 41.4 s 22.9-35.8 [facility] HospitalTvbbhdhLGDTOBDCYO3835-04-08 10:09:00 Test Item Value Reference Range Interpretation Comments PT (test code = PT) 15.4 s 12.0-14.7 [facility] HospitalFaozsnrPNXTYALUNU4865-70-36 10:09:00 Test Item Value Reference Range Interpretation Comments INR (test code = INR) 1.24 1 0.85-1.17 [facility] HospitalNbxuwqqCEIPCFKHUX8160-96-81 10:09:00 Test Item Value Reference Range Interpretation Comments Fibrinogen Lvl (test code = Fibrinogen 312 230-510 Lvl) [facility] HospitalEmqzpjmNCTLNYOLPP9451-06-90 10:09:00 Test Item Value Reference Range Interpretation Comments Thrombin Time (test code = Thrombin 16.6 s 15.0-21.2 Time) [facility] CampusPhpgoatTVUUWTDZFL3530-17-07 10:09:00 Test Item Value Reference Range Interpretation Comments D-Dimer (test code = D-Dimer) 4.91 [facility] CampusPtkagthTGDUMOHQDS7407-87-95 10:09:00 Test Item Value Reference Range Interpretation Comments Basophils # (test code 0.1 See_Comment [Aut omated message] The = Basophils #) system which generated this result tra nsmitted reference range : <=0.2. The reference r leo was not used to int erpret this result as normal/abnormal . [facility] OSROUVLFY7811-29-39 10:09:00 Test Item Value Reference Range Interpretation Comments Hgb A1C (test code = Hgb A1C) 5.6 [facility] HospitalCHEM [id number] 09:07:00 Test Item Value Reference Range Interpretation Comments Amylase Lvl (test code = Amylase Lvl) 4 25-115 [facility] HospitalYulekbrPSGQNRNYIG7514-38-48 09:07:00 Test Item Value Reference Range Interpretation Comments Thrombin Time (test code = Thrombin 18.0 s 15.0-21.2 Time) [facility] HospitalDejzfiyNQLHJBRYYP0385-14-84 09:07:00 Test Item Value Reference Range Interpretation Comments PT (test code = PT) 24.6 s 12.0-14.7 [facility] HospitalYjuenswGMWAVOYMTL3036-16-22 09:07:00 Test Item Value Reference Range Interpretation Comments INR (test code = INR) 2.31 1 0.85-1.17 [facility] HospitalNzcgnihUPIMSWYEAM1785-18-14 09:07:00 Test Item Value Reference Range Interpretation Comments PTT (test code = PTT) 57.5 s 22.9-35.8 [facility] CampusAshspfcOENPNEXYCN4501-56-70 09:07:00 Test Item Value Reference Range Interpretation Comments Fibrinogen Lvl (test code = Fibrinogen 125 230-510 Lvl) [facility] CampusNsgkgqpSAYGBAPTSQ3509-28-06 09:07:00 Test Item Value Reference Range Interpretation Comments D-Dimer (test code = D-Dimer) 2.28 [facility]2021-08-04 09:07:00 Test Item Value Reference Range Interpretation Comments Amylase Lvl (test code = Amylase Lvl) 4 25-115 [place] 749491-08-04 09:07:00 Test Item Value Reference Range Interpretation Comments Thrombin Time (test code = Thrombin 18.0 s 15.0-21.2 Time) [place] 749491-08-04 09:07:00 Test Item Value Reference Range Interpretation Comments PT (test code = PT) 24.6 s 12.0-14.7 [place] 749491-08-04 09:07:00 Test Item Value Reference Range Interpretation Comments INR (test code = INR) 2.31 1 0.85-1.17 [facility] CampusFmmdbemKIAEIDOFZS9634-67-24 09:07:00 Test Item Value Reference Range Interpretation Comments PTT (test code = PTT) 57.5 s 22.9-35.8 [facility] CampusZnciovpOSLCQMTURC2926-39-95 09:07:00 Test Item Value Reference Range Interpretation Comments Fibrinogen Lvl (test code = Fibrinogen 125 230-510 Lvl) [facility] CampusRoytfvgCMELLSYAZB9317-43-09 09:07:00 Test Item Value Reference Range Interpretation Comments D-Dimer (test code = D-Dimer) 2.28 [facility]2021-08-04 09:07:00 Test Item Value Reference Range Interpretation Comments Amylase Lvl (test code = Amylase Lvl) 4 25-115 [facility] CampusOebtjzqNSYGNFMVOX4066-60-35 09:07:00 Test Item Value Reference Range Interpretation Comments Thrombin Time (test code = Thrombin 18.0 s 15.0-21.2 Time) [place] 749491-08-04 09:07:00 Test Item Value Reference Range Interpretation Comments PT (test code = PT) 24.6 s 12.0-14.7 [place] 749491-08-04 09:07:00 Test Item Value Reference Range Interpretation Comments INR (test code = INR) 2.31 1 0.85-1.17 [facility] CampusColjwwyGKYERPJBPL6523-01-07 09:07:00 Test Item Value Reference Range Interpretation Comments PTT (test code = PTT) 57.5 s 22.9-35.8 [place] 749491-08-04 09:07:00 Test Item Value Reference Range Interpretation Comments Fibrinogen Lvl (test code = Fibrinogen 125 230-510 Lvl) [facility] CampusDtzkcavJJTJCXZZHH9277-29-08 09:07:00 Test Item Value Reference Range Interpretation Comments D-Dimer (test code = D-Dimer) 2.28 [facility]2021-08-04 09:07:00 Test Item Value Reference Range Interpretation Comments Amylase Lvl (test code = Amylase Lvl) 4 [facility] CampusNdzlexuUNRJMZSJOJ8341-98-65 09:07:00 Test Item Value Reference Range Interpretation Comments Thrombin Time (test code = Thrombin 18.0 s 15.0-21.2 Time) [facility] CampusOozwqhtFLDAILGEMK4659-23-04 09:07:00 Test Item Value Reference Range Interpretation Comments PT (test code = PT) 24.6 s 12.0-14.7 [facility] CampusGkmpbfvHPALEHYUFP5841-27-93 09:07:00 Test Item Value Reference Range Interpretation Comments INR (test code = INR) 2.31 1 0.85-1.17 [facility] CampusQzixsjjGLRKYFSAMC0916-15-92 09:07:00 Test Item Value Reference Range Interpretation Comments PTT (test code = PTT) 57.5 s 22.9-35.8 [facility] CampusXckpliiPCXRHRJVPV5049-60-59 09:07:00 Test Item Value Reference Range Interpretation Comments Fibrinogen Lvl (test code = Fibrinogen 125 230-510 Lvl) [facility] CampusRxoawjxMZDNFGPKJJ2407-02-36 09:07:00 Test Item Value Reference Range Interpretation Comments D-Dimer (test code = D-Dimer) 2.28 [facility]2021-08-04 09:07:00 Test Item Value Reference Range Interpretation Comments Amylase Lvl (test code = Amylase Lvl) 4 [facility] CampusAgbbotcPNLVLBEZRX0312-16-94 09:07:00 Test Item Value Reference Range Interpretation Comments Thrombin Time (test code = Thrombin 18.0 s 15.0-21.2 Time) [facility] H[id number] 09:07:00 Test Item Value Reference Range Interpretation Comments PT (test code = PT) 24.6 s 12.0-14.7 [facility] Ho[id number] 09:07:00 Test Item Value Reference Range Interpretation Comments INR (test code = INR) 2.31 1 0.85-1.17 [facility] CampusAimvkabERVUDZMDVZ2851-21-47 09:07:00 Test Item Value Reference Range Interpretation Comments PTT (test code = PTT) 57.5 s 22.9-35.8 [facility] HospitalJklbixbLWOEXNJGXT8954-15-07 09:07:00 Test Item Value Reference Range Interpretation Comments Fibrinogen Lvl (test code = Fibrinogen 125 230-510 Lvl) [facility] H[id number] 09:07:00 Test Item Value Reference Range Interpretation Comments D-Dimer (test code = D-Dimer) 2.28 [facility] [id number] 04:52:00 Test Item Value Reference Range Interpretation Comments RBC product (test code Product available = RBC product) (01/21/21 11:52 PM) [facility] [id number] 04:52:00 Test Item Value Reference Range Interpretation Comments RBC product (test code Product available = RBC product) (01/21/21 11:52 PM) [facility] [id number] 04:52:00 Test Item Value Reference Range Interpretation Comments RBC product (test code Product available = RBC product) (01/21/21 11:52 PM) [facility] [id number] 04:52:00 Test Item Value Reference Range Interpretation Comments RBC product (test code Product available = RBC product) (01/21/21 11:52 PM) [facility] [id number] 04:52:00 Test Item Value Reference Range Interpretation Comments RBC product (test code Product available = RBC product) (01/21/21 11:52 PM) [facility] [id number] 00:38:00 Test Item Value Reference Range Interpretation Comments Troponin-I (test code no gt See_Comment [Auto mated message] The = Troponin-I) system which g enerated this result transmit rohit reference range : <=0.40. The reference r leo was not used to interpr et this result as reji l/abnormal. [facility] 00:38:00 Test Item Value Reference Range Interpretation Comments Troponin-I (test code no gt See_Comment [Auto mated message] The = Troponin-I) system which g enerated this result transmit rohit reference range : <=0.40. The reference r leo was not used to interpr et this result as reji l/abnormal. [facility] 00:38:00 Test Item Value Reference Range Interpretation Comments Troponin-I (test code no gt See_Comment [Auto mated message] The = Troponin-I) system which g enerated this result transmit rohit reference range : <=0.40. The reference r leo was not used to interpr et this result as reji l/abnormal. [facility] 00:38:00 Test Item Value Reference Range Interpretation Comments Troponin-I (test code no gt See_Comment [Auto mated message] The = Troponin-I) system which g enerated this result transmit rohit reference range : <=0.40. The reference r leo was not used to interpr et this result as reji l/abnormal. [facility] 00:38:00 Test Item Value Reference Range Interpretation Comments Troponin-I (test code no gt See_Comment [Auto mated message] The = Troponin-I) system which g enerated this result transmit rohit reference range : <=0.40. The reference r leo was not used to interpr et this result as reji l/abnormal. [facility] 17:47:00 Test Item Value Reference Range Interpretation Comments BNP (test code = BNP) 2324 [facility] 17:47:00 Test Item Value Reference Range Interpretation Comments Troponin-I (test code 0.02 See_Comment [Auto mated message] The = Troponin-I) system which g enerated this result transmit rohit reference range : <=0.40. The reference r leo was not used to interpr et this result as reji l/abnormal. [facility] [id number] 17:47:00 Test Item Value Reference Range Interpretation Comments Hep Bs Ag (test code Negative *NA*(01/21/21 = Hep Bs Ag) 12:47 PM) [facility] [employer]ARD[employer] [id number] 17:47:00 Test Item Value Reference Range Interpretation Comments BNP (test code = BNP) 2324 [facility] [employer]CARSparxentAC [id number] 17:47:00 Test Item Value Reference Range Interpretation Comments Troponin-I (test code 0.02 See_Comment [Auto mated message] The = Troponin-I) system which g enerated this result transmit rohit reference range : <=0.40. The reference r leo was not used to interpr et this result as reji l/abnormal. [facility] [id number] 17:47:00 Test Item Value Reference Range Interpretation Comments Hep Bs Ag (test code Negative *NA*(01/21/21 = Hep Bs Ag) 12:47 PM) [facility] [employer] [id number] 17:47:00 Test Item Value Reference Range Interpretation Comments BNP (test code = BNP) 2323 [facility] [employer] [id number] 17:47:00 Test Item Value Reference Range Interpretation Comments Troponin-I (test code 0.02 See_Comment [Auto mated message] The = Troponin-I) system which g enerated this result transmit rohit reference range : <=0.40. The reference r leo was not used to interpr et this result as reji l/abnormal. [facility] Hospit[id number] 17:47:00 Test Item Value Reference Range Interpretation Comments Hep Bs Ag (test code Negative *NA*(01/21/21 = Hep Bs Ag) 12:47 PM) [facility] [employer] [id number] 17:47:00 Test Item Value Reference Range Interpretation Comments BNP (test code = BNP) 2324 [facility] [employer] [id number] 17:47:00 Test Item Value Reference Range Interpretation Comments Troponin-I (test code 0.02 See_Comment [Auto mated message] The = Troponin-I) system which g enerated this result transmit rohit reference range : <=0.40. The reference r leo was not used to interpr et this result as reji l/abnormal. [facility] RxpfeirNWCCIVPDYD1318-25-05 17:47:00 Test Item Value Reference Range Interpretation Comments Hep Bs Ag (test code Negative *NA*(01/21/21 = Hep Bs Ag) 12:47 PM) [facility] [employer] [id number] 17:47:00 Test Item Value Reference Range Interpretation Comments BNP (test code = BNP) 2324 [facility] [id number] 17:47:00 Test Item Value Reference Range Interpretation Comments Troponin-I (test code 0.02 See_Comment [Auto mated message] The = Troponin-I) system which g enerated this result transmit rohit reference range : <=0.40. The reference r leo was not used to interpr et this result as reji l/abnormal. [facility] [id number] 17:47:00 Test Item Value Reference Range Interpretation Comments Hep Bs Ag (test code Negative *NA*(01/21/21 = Hep Bs Ag) 12:47 PM) [facility] [employer] [id number] 17:43:00 Test Item Value Reference Range Interpretation Comments B/C Ratio (test code = B/C Ratio) 5 1 6-25 [facility] [employer] [id number] 17:43:00 Test Item Value Reference Range Interpretation Comments ALT (test code = ALT) 66 See_Comment [Auto mated message] The system which ge nerated this result transmit rohit reference range : <=65. The reference range was not used to interpr et this result as reji l/abnormal. [facility] [employer] [id number] 17:43:00 Test Item Value Reference Range Interpretation Comments Albumin Lvl (test code = Albumin Lvl) 3.0 3.5-5.0 [facility] [employer] [id number] 17:43:00 Test Item Value Reference Range Interpretation Comments Alk Phos (test code = Alk Phos) 40 39-136 [facility] [employer] [id number] 17:43:00 Test Item Value Reference Range Interpretation Comments Bili Total (test code = Bili Total) 0.5 0.2-1.3 [facility] [employer]2021-08-03 17:43:00 Test Item Value Reference Range Interpretation Comments Total Protein (test code = Total 5.7 6.4-8.4 Protein) [facility] [employer] [id number] 17:43:00 Test Item Value Reference Range Interpretation Comments AST (test code = AST) 52 See_Comment [Auto mated message] The system which ge nerated this result transmit rohit reference range : <=37. The reference range was not used to interpr et this result as reji l/abnormal. [facility] [employer] [id number] 17:43:00 Test Item Value Reference Range Interpretation Comments Globulin (test code = Globulin) 2.7 2.7-4.2 [facility] [employer] [id number] 17:43:00 Test Item Value Reference Range Interpretation Comments A/G Ratio (test code = A/G Ratio) 1.1 1 0.7-1.6 [facility] [employer] [id number] 17:43:00 Test Item Value Reference Range Interpretation Comments Lactic Acid Lvl (test code = Lactic 1.1 0.5-2.2 Acid Lvl) [facility] [employer] [id number] 17:43:00 Test Item Value Reference Range Interpretation Comments B/C Ratio (test code = B/C Ratio) 5 1 6-25 [facility] [employer] [id number] 17:43:00 Test Item Value Reference Range Interpretation Comments ALT (test code = ALT) 66 See_Comment [Auto mated message] The system which ge nerated this result transmit rohit reference range : <=65. The reference range was not used to interpr et this result as reji l/abnormal. [facility] [employer] [id number] 17:43:00 Test Item Value Reference Range Interpretation Comments Albumin Lvl (test code = Albumin Lvl) 3.0 3.5-5.0 [facility] [employer] [id number] 17:43:00 Test Item Value Reference Range Interpretation Comments Alk Phos (test code = Alk Phos) 40 39-136 [facility] [employer] [id number] 17:43:00 Test Item Value Reference Range Interpretation Comments Bili Total (test code = Bili Total) 0.5 0.2-1.3 [facility] [employer] [id number] 17:43:00 Test Item Value Reference Range Interpretation Comments Total Protein (test code = Total 5.7 6.4-8.4 Protein) [facility] [id number] 17:43:00 Test Item Value Reference Range Interpretation Comments AST (test code = AST) 52 See_Comment [Auto mated message] The system which ge nerated this result transmit rohit reference range : <=37. The reference range was not used to interpr et this result as reji l/abnormal. [facility] [id number] 17:43:00 Test Item Value Reference Range Interpretation Comments Globulin (test code = Globulin) 2.7 2.7-4.2 [facility] [id number] 17:43:00 Test Item Value Reference Range Interpretation Comments A/G Ratio (test code = A/G Ratio) 1.1 1 0.7-1.6 [facility] [id number] 17:43:00 Test Item Value Reference Range Interpretation Comments Lactic Acid Lvl (test code = Lactic 1.1 0.5-2.2 Acid Lvl) [facility] [id number] 17:43:00 Test Item Value Reference Range Interpretation Comments B/C Ratio (test code = B/C Ratio) 5 1 6-25 [facility] [id number] 17:43:00 Test Item Value Reference Range Interpretation Comments ALT (test code = ALT) 66 See_Comment [Auto mated message] The system which ge nerated this result transmit rohit reference range : <=65. The reference range was not used to interpr et this result as reji l/abnormal. [facility] [id number] 17:43:00 Test Item Value Reference Range Interpretation Comments Albumin Lvl (test code = Albumin Lvl) 3.0 3.5-5.0 [facility] [id number] 17:43:00 Test Item Value Reference Range Interpretation Comments Alk Phos (test code = Alk Phos) 40 39-136 [facility] [id number] 17:43:00 Test Item Value Reference Range Interpretation Comments Bili Total (test code = Bili Total) 0.5 0.2-1.3 [facility] [id number] 17:43:00 Test Item Value Reference Range Interpretation Comments Total Protein (test code = Total 5.7 6.4-8.4 Protein) [facility] [id number] 17:43:00 Test Item Value Reference Range Interpretation Comments AST (test code = AST) 52 See_Comment [Auto mated message] The system which ge nerated this result transmit rohit reference range : <=37. The reference range was not used to interpr et this result as reji l/abnormal. [facility] [employer] [id number] 17:43:00 Test Item Value Reference Range Interpretation Comments Globulin (test code = Globulin) 2.7 2.7-4.2 [facility] [employer] [id number] 17:43:00 Test Item Value Reference Range Interpretation Comments A/G Ratio (test code = A/G Ratio) 1.1 1 0.7-1.6 [facility] [employer] [id number] 17:43:00 Test Item Value Reference Range Interpretation Comments Lactic Acid Lvl (test code = Lactic 1.1 0.5-2.2 Acid Lvl) [facility] [id number] 17:43:00 Test Item Value Reference Range Interpretation Comments B/C Ratio (test code = B/C Ratio) 5 1 6-25 [facility] [id number] 17:43:00 Test Item Value Reference Range Interpretation Comments ALT (test code = ALT) 66 See_Comment [Auto mated message] The system which ge nerated this result transmit rohit reference range : <=65. The reference range was not used to interpr et this result as reji l/abnormal. [facility] [employer] [id number] 17:43:00 Test Item Value Reference Range Interpretation Comments Albumin Lvl (test code = Albumin Lvl) 3.0 3.5-5.0 [facility] [employer] [id number] 17:43:00 Test Item Value Reference Range Interpretation Comments Alk Phos (test code = Alk Phos) 40 39-136 [facility] [id number] 17:43:00 Test Item Value Reference Range Interpretation Comments Bili Total (test code = Bili Total) 0.5 0.2-1.3 [facility] [id number] 17:43:00 Test Item Value Reference Range Interpretation Comments Total Protein (test code = Total 5.7 6.4-8.4 Protein) [facility] [id number] 17:43:00 Test Item Value Reference Range Interpretation Comments AST (test code = AST) 52 See_Comment [Auto mated message] The system which ge nerated this result transmit rohit reference range : <=37. The reference range was not used to interpr et this result as reji l/abnormal. [facility] [id number] 17:43:00 Test Item Value Reference Range Interpretation Comments Globulin (test code = Globulin) 2.7 2.7-4.2 [facility] [id number] 17:43:00 Test Item Value Reference Range Interpretation Comments A/G Ratio (test code = A/G Ratio) 1.1 1 0.7-1.6 [facility] [id number] 17:43:00 Test Item Value Reference Range Interpretation Comments Lactic Acid Lvl (test code = Lactic 1.1 0.5-2.2 Acid Lvl) [facility] [id number] 17:43:00 Test Item Value Reference Range Interpretation Comments B/C Ratio (test code = B/C Ratio) 5 1 6-25 [facility] [id number] 17:43:00 Test Item Value Reference Range Interpretation Comments ALT (test code = ALT) 66 See_Comment [Auto mated message] The system which ge nerated this result transmit rohit reference range : <=65. The reference range was not used to interpr et this result as reji l/abnormal. [facility] [id number] 17:43:00 Test Item Value Reference Range Interpretation Comments Albumin Lvl (test code = Albumin Lvl) 3.0 3.5-5.0 [facility] [id number] 17:43:00 Test Item Value Reference Range Interpretation Comments Alk Phos (test code = Alk Phos) 40 39-136 [facility] [id number] 17:43:00 Test Item Value Reference Range Interpretation Comments Bili Total (test code = Bili Total) 0.5 0.2-1.3 [facility] [id number] 17:43:00 Test Item Value Reference Range Interpretation Comments Total Protein (test code = Total 5.7 6.4-8.4 Protein) [facility] [id number] 17:43:00 Test Item Value Reference Range Interpretation Comments AST (test code = AST) 52 See_Comment [Auto mated message] The system which ge nerated this result transmit rohit reference range : <=37. The reference range was not used to interpr et this result as reji l/abnormal. [facility] [employer] [id number] 17:43:00 Test Item Value Reference Range Interpretation Comments Globulin (test code = Globulin) 2.7 2.7-4.2 [facility] [employer] [id number] 17:43:00 Test Item Value Reference Range Interpretation Comments A/G Ratio (test code = A/G Ratio) 1.1 1 0.7-1.6 [facility] [employer] [id number] 17:43:00 Test Item Value Reference Range Interpretation Comments Lactic Acid Lvl (test code = Lactic 1.1 0.5-2.2 Acid Lvl) [facility] [employer] [id number] 16:20:00 Test Item Value Reference Range Interpretation Comments ABO/Rh (test code = ABO/Rh) B POS [facility] [employer] [id number] 16:20:00 Test Item Value Reference Range Interpretation Comments Antibody Scrn (test Negative (01/21/21 11:20 code = Antibody Scrn) AM) [facility] [id number] 16:20:00 Test Item Value Reference Range Interpretation Comments Anisocyte (test code = 1+ *ABN*(01/21/21 Anisocyte) 11:20 AM) [facility] [employer] [id number] 16:20:00 Test Item Value Reference Range Interpretation Comments ABO/Rh (test code = ABO/Rh) B POS [facility] [employer] [id number] 16:20:00 Test Item Value Reference Range Interpretation Comments Antibody Scrn (test Negative (01/21/21 11:20 code = Antibody Scrn) AM) [facility] [id number] 16:20:00 Test Item Value Reference Range Interpretation Comments Anisocyte (test code = 1+ *ABN*(01/21/21 Anisocyte) 11:20 AM) [facility] [employer] [id number] 16:20:00 Test Item Value Reference Range Interpretation Comments ABO/Rh (test code = ABO/Rh) B POS [facility] [employer] [id number] 16:20:00 Test Item Value Reference Range Interpretation Comments Antibody Scrn (test Negative (01/21/21 11:20 code = Antibody Scrn) AM) [id number] 16:20:00 Test Item Value Reference Range Interpretation Comments Anisocyte (test code = 1+ *ABN*(01/21/21 Anisocyte) 11:20 AM) [facility] [employer] [facility] [id number] 16:20:00 Test Item Value Reference Range Interpretation Comments ABO/Rh (test code = ABO/Rh) B POS [facility] [id number] 16:20:00 Test Item Value Reference Range Interpretation Comments Antibody Scrn (test Negative (01/21/21 11:20 code = Antibody Scrn) AM) [facility] [id number] 16:20:00 Test Item Value Reference Range Interpretation Comments Anisocyte (test code = 1+ *ABN*(01/21/21 Anisocyte) 11:20 AM) [facility] [id number] 16:20:00 Test Item Value Reference Range Interpretation Comments ABO/Rh (test code = ABO/Rh) B POS [facility] [id number] 16:20:00 Test Item Value Reference Range Interpretation Comments Antibody Scrn (test Negative (01/21/21 11:20 code = Antibody Scrn) AM) [facility] [id number] 16:20:00 Test Item Value Reference Range Interpretation Comments Anisocyte (test code = 1+ *ABN*(01/21/21 Anisocyte) 11:20 AM) [facility] [id number] 15:35:00 Test Item Value Reference Range Interpretation Comments Lactase Lvl (test code = Lactase Lvl) 2.0 [facility] [id number] 15:35:00 Test Item Value Reference Range Interpretation Comments Sucrase Lvl (test code = Sucrase Lvl) 38.6 [facility] [id number] 15:35:00 Test Item Value Reference Range Interpretation Comments Maltase Lvl (test code = Maltase Lvl) 177.2 [facility] [id number] 15:35:00 Test Item Value Reference Range Interpretation Comments Palatinase Lvl (test code = Palatinase 13.8 Lvl) [facility] [id number] 15:35:00 Test Item Value Reference Range Interpretation Comments Lactase Lvl (test code = Lactase Lvl) 2.0 [facility] [id number] 15:35:00 Test Item Value Reference Range Interpretation Comments Sucrase Lvl (test code = Sucrase Lvl) 38.6 [facility] [id number] 15:35:00 Test Item Value Reference Range Interpretation Comments Maltase Lvl (test code = Maltase Lvl) 177.2 [facility] [id number] 15:35:00 Test Item Value Reference Range Interpretation Comments Palatinase Lvl (test code = Palatinase 13.8 Lvl) [facility] [id number] 15:35:00 Test Item Value Reference Range Interpretation Comments Lactase Lvl (test code = Lactase Lvl) 2.0 [facility] [id number] 15:35:00 Test Item Value Reference Range Interpretation Comments Sucrase Lvl (test code = Sucrase Lvl) 38.6 [facility] [id number] 15:35:00 Test Item Value Reference Range Interpretation Comments Maltase Lvl (test code = Maltase Lvl) 177.2 [facility] [id number] 15:35:00 Test Item Value Reference Range Interpretation Comments Palatinase Lvl (test code = Palatinase 13.8 Lvl) [facility] [id number] 15:35:00 Test Item Value Reference Range Interpretation Comments Lactase Lvl (test code = Lactase Lvl) 2.0 [facility] [id number] 15:35:00 Test Item Value Reference Range Interpretation Comments Sucrase Lvl (test code = Sucrase Lvl) 38.6 [facility] [id number] 15:35:00 Test Item Value Reference Range Interpretation Comments Maltase Lvl (test code = Maltase Lvl) 177.2 [facility]annREFSUN[facility] [id number] 15:35:00 Test Item Value Reference Range Interpretation Comments Palatinase Lvl (test code = Palatinase 13.8 Lvl) [facility] [id number] 15:35:00 Test Item Value Reference Range Interpretation Comments Lactase Lvl (test code = Lactase Lvl) 2.0 [facility] [id number] 15:35:00 Test Item Value Reference Range Interpretation Comments Sucrase Lvl (test code = Sucrase Lvl) 38.6 [facility]annREFSUN[facility] [id number] 15:35:00 Test Item Value Reference Range Interpretation Comments Maltase Lvl (test code = Maltase Lvl) 177.2 [facility] [id number] 15:35:00 Test Item Value Reference Range Interpretation Comments Palatinase Lvl (test code = Palatinase 13.8 Lvl) [id number] 13:21:00 Test Item Value Reference Range Interpretation Comments Potassium WB (test code = Potassium WB) 5.1 3.5-5.1 [id number] 13:21:00 Test Item Value Reference Range Interpretation Comments S Preg (test code = S Negative 8*NA*(01/21/21 Preg) 8:21 AM) [id number] 13:21:00 Test Item Value Reference Range Interpretation Comments Potassium WB (test code = Potassium WB) 5.1 3.5-5.1 [facility]BchcvzxPXCFBTLKAMRKA1631-41-12 13:21:00 Test Item Value Reference Range Interpretation Comments S Preg (test code = S Negative 8*NA*(01/21/21 Preg) 8:21 AM) [id number] 13:21:00 Test Item Value Reference Range Interpretation Comments Potassium WB (test code = Potassium WB) 5.1 3.5-5.1 [facility]kinR[id number] 13:21:00 Test Item Value Reference Range Interpretation Comments S Preg (test code = S Negative 8*NA*(01/21/21 Preg) 8:21 AM) [facility] HospitalDleyihqJXUVGFDMRLQK4853-38-55 13:21:00 Test Item Value Reference Range Interpretation Comments Potassium WB (test code = Potassium WB) 5.1 3.5-5.1 [place] [id number] 13:21:00 Test Item Value Reference Range Interpretation Comments S Preg (test code = S Negative 8*NA*(01/21/21 Preg) 8:21 AM) [facility] Hospital[id number] 13:21:00 Test Item Value Reference Range Interpretation Comments Potassium WB (test code = Potassium WB) 5.1 3.5-5.1 [place] [id number] 13:21:00 Test Item Value Reference Range Interpretation Comments S Preg (test code = S Negative 8*NA*(01/21/21 Preg) 8:21 AM) [facility]VohezfbVROFARAZXH5435-34-41 11:19:00 Test Item Value Reference Range Interpretation Comments Coronavirus (COVID-19) Not Detected (01/21/21 EMANUEL (test code = 6:19 AM) Coronavirus (COVID-19) EMANUEL) [facility] CenterZrgprblRWWIUMSDPX2426-35-11 11:19:00 Test Item Value Reference Range Interpretation Comments Coronavirus (COVID-19) Not Detected (01/21/21 EMANUEL (test code = 6:19 AM) Coronavirus (COVID-19) EMANUEL) [facility] CenterOkxfhdqRKKODOJCSC0253-79-28 11:19:00 Test Item Value Reference Range Interpretation Comments Coronavirus (COVID-19) Not Detected (01/21/21 EMANUEL (test code = 6:19 AM) Coronavirus (COVID-19) EMANUEL) [facility] CenterWefwjylVPSNHVEGAP2450-71-12 11:19:00 Test Item Value Reference Range Interpretation Comments Coronavirus (COVID-19) Not Detected (01/21/21 EMANUEL (test code = 6:19 AM) Coronavirus (COVID-19) EMANUEL) [facility] CenterImmmbznPLJZVTJPOK1435-52-93 11:19:00 Test Item Value Reference Range Interpretation Comments Coronavirus (COVID-19) Not Detected (01/21/21 EMANUEL (test code = 6:19 AM) Coronavirus (COVID-19) EMANUEL) [facility]2020-08-12 16:39:05 Test Item Value Reference Range Interpretation Comments Glucose POC (test 183 mg/dL 70-115 H If you con lottery sales clerk your code = Glucose POC) patient critically ill, the Merlin-Accu Check Infrom II meter should not be used for Glucose determination. Draw a venous Glucose and send to the main Lab for analysis. Urine Jprrfuw0651-20-14 11:32:13 Test Item Value Reference Range Interpretation [...] Report) Escherichia coli C Urine Added by [facility] Oraxzzt4732-51-06 07:52:10 Test Item Value Reference Range Interpretation Comments Glucose POC (test 160 mg/dL 70-115 H If you con lottery sales clerk your code = Glucose POC) patient critically ill, the Merlin-Accu Check Infrom II meter should not be used for Glucose determination. Draw a venous Glucose and send to the main Lab for analysis. POC Rlgpqjv8959-81-01 19:32:05 Test Item Value Reference Range Interpretation Comments Glucose POC (test 184 mg/dL 70-115 H If you con lottery sales clerk your code = Glucose POC) patient critically ill, the Merlin-Accu Check Infrom II meter should not be used for Glucose determination. Draw a venous Glucose and send to the main Lab for analysis. POC Nckymrj1539-12-01 17:16:35 Test Item Value Reference Range Interpretation Comments Glucose POC (test 281 mg/dL 70-115 H Notify RN or MDIf you code = Glucose POC) consider your patient critically ill, the Merlin-Accu Chec k Infrom II meter should not be used for Glucos e determination. Draw a venous Glucose and send to the main Lab for analysis. POC Ktaqcep9820-79-87 12:00:38 Test Item Value Reference Range Interpretation Comments Glucose POC (test 138 mg/dL 70-115 H Notify RN or MDIf you code = Glucose POC) consider your patient critically ill, the Merlin-Accu Chec k Infrom II meter should not be used for Glucos e determination. Draw a venous Glucose and send to the main Lab for analysis. POC Kzurplz8196-91-47 07:41:32 Test Item Value Reference Range Interpretation Comments Glucose POC (test 206 mg/dL 70-115 H Notify RN or MDIf you code = Glucose POC) consider your patient critically ill, the Merlin-Accu Chec k Infrom II meter should not be used for Glucos e determination. Draw a venous Glucose and send to the main Lab for analysis. Urinalysis Zebirfwtiwx5972-36-42 21:07:21 Test Item Value Reference Range Interpretation Comments UA WBC (test code = UA WBC) TNTC 0-5 A UA RBC (test code = UA RBC) 6-10 0-5 A UA Bacteria (test code = UA Bacteria) Profuse A UA Squam Epithelial (test code = UA 6-10 A Squam Epithelial) Urinalysis with Culture, if [id number] 20:35:14 Test Item Value Reference Range Interpretation [...] Micro Indicated Not Indicated A Ind?) POC Bbkvcam0931-28-48 19:06:34 Test Item Value Reference Range Interpretation Comments Glucose POC (test 207 mg/dL 70-115 H If you con lottery sales clerk your code = Glucose POC) patient critically ill, the Merlin-Accu Check Infrom II meter should not be used for Glucose determination. Draw a venous Glucose and send to the main Lab for analysis. POC [id number] 17:12:03 Test Item Value Reference Range Interpretation Comments Glucose POC (test 173 mg/dL 70-115 H Notify RN or MDIf you code = Glucose POC) consider your patient critically ill, the Merlin-Accu Chec k Infrom II meter should not be used for Glucos e determination. Draw a venous Glucose and send to the main Lab for analysis. POC Wvbhemb3543-49-14 11:58:01 Test Item Value Reference Range Interpretation Comments Glucose POC (test 289 mg/dL 70-115 H Notify RN or MDIf you code = Glucose POC) consider your patient critically ill, the Merlin-Accu Chec k Infrom II meter should not be used for Glucos e determination. Draw a venous Glucose and send to the main Lab for analysis. POC Hhrncja3502-32-08 08:19:37 Test Item Value Reference Range Interpretation Comments Glucose POC (test 201 mg/dL 70-115 H Notify RN or MDIf you code = Glucose POC) consider your patient critically ill, the Merlin-Accu Chec k Infrom II meter should not be used for Glucos e determination. Draw a venous Glucose and send to the main Lab for analysis. POC [id number] 20:37:35 Test Item Value Reference Range Interpretation Comments Glucose POC (test 272 mg/dL 70-115 H If you con lottery sales clerk your code = Glucose POC) patient critically ill, the Merlin-Accu Check Infrom II meter should not be used for Glucose determination. Draw a venous Glucose and send to the main Lab for analysis. POC Wjclknt1539-40-74 17:23:05 Test Item Value Reference Range Interpretation Comments Glucose POC (test 229 mg/dL 70-115 H If you con lottery sales clerk your code = Glucose POC) patient critically ill, the Merlin-Accu Check Infrom II meter should not be used for Glucose determination. Draw a venous Glucose and send to the main Lab for analysis. POC [id number] 12:01:01 Test Item Value Reference Range Interpretation Comments Glucose POC (test 155 mg/dL 70-115 H If you con lottery sales clerk your code = Glucose POC) patient critically ill, the Merlin-Accu Check Infrom II meter should not be used for Glucose determination. Draw a venous Glucose and send to the main Lab for analysis. POC Byjgqix8362-00-82 08:07:32 Test Item Value Reference Range Interpretation Comments Glucose POC (test 248 mg/dL 70-115 H If you con lottery sales clerk your code = Glucose POC) patient critically ill, the Merlin-Accu Check Infrom II meter should not be used for Glucose determination. Draw a venous Glucose and send to the main Lab for analysis. IG [id number] 06:50:39 Test Item Value Reference Range Interpretation Comments IG (test code = IG) 0.7 % 0.0-5.0 IG Abs (test code = IG Abs) 0 x10 N Complete Blood Count with [id number] 06:50:38 Test Item Value Reference Range Interpretation [...] code = IPF) 0 % N Automated Ojjhznakwzzw9634-03-18 06:50:38 Test Item Value Reference Range Interpretation Comments Neutro Auto (test code = Neutro 50.3 % 36.0-70.0 Auto) Lymph Auto (test code = Lymph Auto) 38.6 % 12.0-44.0 Boss[place] Auto (test code = [place] Auto) 7.3 % 0.0-11.0 Eos, Auto (test code = Eos, Auto) 2.4 % 0.0-7.0 Basophil Auto (test code = Basophil 0.7 % 0.0-2.0 Auto) Neutro Absolute (test code = Neutro 3.0 x10 1.6-7.4 Absolute) Lymph Absolute (test code = Lymph 2.28 x10 .50-4.60 Absolute) [place] Absolute (test code = [place] .43 x10 .00-1.20 Absolute) Eos Absolute (test code = Eos 0.14 x10 0.00-0.74 Absolute) Baso Absolute (test code = Baso 0.04 x10 0.00-0.21 Absolute) Basic Metabolic [id number] 05:38:20 Test Item Value Reference Range Interpretation [...] = Lipemia) 0 mg/dL 8-11 Basic Metabolic [id number] 05:38:20 Test Item Value Reference Range Interpretation [...] = 0 mg/dL 8-11 Lipemia) Basic Metabolic [id number] 05:38:20 Test Item Value Reference Range Interpretation [...] code = 0 mg/dL 8-11 Lipemia) POC [id number] 20:28:33 Test Item Value Reference Range Interpretation Comments Glucose POC (test 169 mg/dL 70-115 H If you con lottery sales clerk your code = Glucose POC) patient critically ill, the Merlin-Accu Check Infrom II meter should not be used for Glucose determination. Draw a venous Glucose and send to the main Lab for analysis. POC Uaoqybx5514-04-09 16:39:30 Test Item Value Reference Range Interpretation Comments Glucose POC (test 103 mg/dL 70-115 If you con lottery sales clerk your code = Glucose POC) patient critically ill, the Merlin-Accu Check Infrom II meter should not be used for Glucose determination. Draw a venous Glucose and send to the main Lab for analysis. RPR Souchyajdwa3868-92-72 12:08:56 Test Item Value Reference Range Interpretation Comments RPR Qual (test code = RPR Qual) Non-Reactive Non-Reactive Reactive Control (test code = Reactive Reactive Control) Weak Reactive Control (test Weak Reactive code = Weak Reactive Control) Non-Reactive Control (test code Non-Reactive = Non-Reactive Control) Lot # (test code = Lot #) [id number] N Expiration Dt (test code = 03-20-2021 N Expiration Dt) POC [id number] 11:52:31 Test Item Value Reference Range Interpretation Comments Glucose POC (test 250 mg/dL 70-115 H If you con lottery sales clerk your code = Glucose POC) patient critically ill, the Merlin-Accu Check Infrom II meter should not be used for Glucose determination. Draw a venous Glucose and send to the main Lab for analysis. POC Layumgo1965-36-37 07:55:29 Test Item Value Reference Range Interpretation Comments Glucose POC (test 205 mg/dL 70-115 H If you con lottery sales clerk your code = Glucose POC) patient critically ill, the Merlin-Accu Check Infrom II meter should not be used for Glucose determination. Draw a venous Glucose and send to the main Lab for analysis. Lipid [id number] 05:46:04 Test Item Value Reference Range Interpretation [...] LDL/HDL Ratio=L DL Calc/HDL Chol Thyroid Stimulating [id number] 05:46:04 Test Item Value Reference Range Interpretation Comments TSH (test code = TSH) 3.274 mcIU/mL 0.550-4.780 Hemoglobin [id number] 05:41:08 Test Item Value Reference Range Interpretation Comments Hemoglobin A1c (test code 7.6 % 4.0-5.8 H Di abetic >=6.5 = Hemoglobin A1c) %Prediabet es 5.7-6.4 %Normal <5.7 % Hepatitis B Surface [id number] 21:19:36 Test Item Value Reference Range Interpretation Comments Hep Bs Ag (test code = Hep Bs Non-Reactive Non-Reactive Ag) Novel Coronavirus SARS-CoV-2, [id number] 11:16:16 Test Item Value Reference Range Interpretation [...] Emergency Use Authorization." Novel Coronavirus (COVID-19), EMANUEL [id number] 11:11:24TNPTest not sent and performed at [facility].Rapid was perfomed in Microbiology.Wrong covid test was ord ered.Urine DOA [id number] 00:17:49 Test Item Value Reference Range Interpretation [...] days. U Propoxyphene (test Negative Negative The [facility] cimen is code = U Propoxyphene) presu mptive positive if the analyte concentration i s equal to or greater t scott 300 ng/ml.If confir mation of positive res ult is desired, please order Propoxyphene Confirmation wi thin 7 days. Alcohol [id number] 00:17:29 Test Item Value Reference Range Interpretation Comments Ethanol Level 9.0 mg/dL N The pharmacolo gical (test code = response to blo od alcohol Ethanol Level) levels may va ry from individual to i ndividual. The fatal omkar ntration has been report ed to be >400 mg/dl. Comprehensive Metabolic [id number] 00:17:28 Test Item Value Reference Range Interpretation [...] = Lipemia) 0 g/dL 1-2 Comprehensive Metabolic [id number] 00:17:28 Test Item Value Reference Range Interpretation [...] = 0 g/dL 1-2 Lipemia) Comprehensive Metabolic [id number] 00:17:28 Test Item Value Reference Range Interpretation [...] g/dL 1-2 Lipemia) Complete Blood Count with [id number] 23:26:28 Test Item Value Reference Range Interpretation [...] code = IPF) 0 % N Automated [id number] 23:26:28 Test Item Value Reference Range Interpretation Comments Neutro Auto (test code = Neutro 67.1 % 36.0-70.0 Auto) Lymph Auto (test code = Lymph Auto) 23.3 % 12.0-44.0 Bossier Auto (test code = [place] Auto) 5.8 % 0.0-11.0 Eos, Auto (test code = Eos, Auto) 2.3 % 0.0-7.0 Basophil Auto (test code = Basophil 0.8 % 0.0-2.0 Auto) Neutro Absolute (test code = Neutro 6.0 x10 1.6-7.4 Absolute) Lymph Absolute (test code = Lymph 2.10 x10 .50-4.60 Absolute) [place] Absolute (test code = [place] .52 x10 .00-1.20 Absolute) Eos Absolute (test code = Eos 0.21 x10 0.00-0.74 Absolute) Baso Absolute (test code = Baso 0.07 x10 0.00-0.21 Absolute) IG [id number] 23:26:28 Test Item Value Reference Range Interpretation Comments IG (test code = IG) 0.7 % 0.0-5.0 IG Abs (test code = IG Abs) 0 x10 N HERPES VIRUS ANTIBODY, [id number] 21:46:00 Test Item Value Reference Range Interpretation Comments HERPES VIRUS IGM (BEAKER) Negative SE E ATTACHMENT (test code = 1808) BLOOD [id number] 06:00:00 Test Item Value Reference Range Interpretation Comments CULTURE (BEAKER) (test No growth in 5 days code = 1095) BLOOD [id number] 06:00:00 Test Item Value Reference Range Interpretation Comments CULTURE (BEAKER) (test No growth in 5 days code = 1095) POCT-GLUCOSE [id number] 12:11:00 Test Item Value Reference Range Interpretation Comments POC-GLUCOSE METER 154 mg/dL 70-110 H TESTED AT [place] [address] ([facility]) (test code = [place] 1538) [address] POCT-GLUCOSE [id number] 07:53:00 Test Item Value Reference Range Interpretation Comments POC-GLUCOSE METER 87 mg/dL 70-110 TESTED AT [place] [address] ([facility]) (test code = [place] [facility] [place] [address]) POCT-GLUCOSE [id number] 06:49:00 Test Item Value Reference Range Interpretation Comments POC-GLUCOSE METER 79 mg/dL 70-110 TESTED AT [place] [address] ([facility]) (test code = [place] [facility] [place] [address] 1538) COMPREHENSIVE METABOLIC [id number] 06:15:00 Test Item Value Reference Range Interpretation [...] S NOT APPLICABLE FOR DIALYSIS PATIEN TS. [id number] 06:11:00 Test Item Value Reference Range Interpretation Comments MAGNESIUM (BEAKER) (test code = 2.1 mg/dL 1.6-2.6 627) HEPATIC FUNCTION [id number] 06:11:00 Test Item Value Reference Range Interpretation Comments TOTAL PROTEIN (BEAKER) (test code = 5.1 gm/dL 6.0-8.3 L 770) ALBUMIN (BEAKER) (test code = 1145) 2.2 g/dL 3.5-5.0 L BILIRUBIN TOTAL (BEAKER) (test code 1.1 mg/dL 0.2-1.2 = 377) BILIRUBIN DIRECT ([facility]) (test 0.7 mg/dL 0.1-0.5 H code = 706) ALKALINE PHOSPHATASE (BEAKER) (test 78 U/L 40-150 code = 346) AST (SGOT) (BEAKER) (test code = 256 U/L 5-34 H 353) ALT (SGPT) (AKER) (test code = 513 U/L 6-55 H 347) [id number] 05:30:00 Test Item Value Reference Range Interpretation Comments FIBRINOGEN LEVEL ([facility]) (test 368 mg/dl 225-434 code = 658) [id number] 05:30:00 Test Item Value Reference Range Interpretation Comments PARTIAL THROMBOPLASTIN TIME 42.2 seconds 22.5-36.0 H ([facility]) (test code = 760) PROTHROMBIN [id number] 05:29:00 Test Item Value Reference Range Interpretation Comments PROTIME ([facility]) (test code = 14.8 seconds 11.7-14.7 H 759) INR ([facility]) (test code = 370) 1.2 <=5.9 RECOMMENDED COUMADIN/WARFARIN INR THERAPY RANGESSTANDARD DOSE: 2.0 - 3.0 Includes: PROPHYLAXIS for venous thrombosis, systemic embolization; TREATMENT for venous thrombosis and/or pulmonary embolus.HIGH RISK: Target INR is 2.5-3.5 for patients with mechanical heart valves.POCT-GLUCOSE [id number] 21:09:00 Test Item Value Reference Range Interpretation Comments POC-GLUCOSE METER 178 mg/dL 70-110 H TESTED AT [place] [address] ([facility]) (test code = [place] [facility] [place] 1538) [address] POCT-GLUCOSE [id number] 17:18:00 Test Item Value Reference Range Interpretation Comments POC-GLUCOSE METER 178 mg/dL 70-110 H TESTED AT [place] [address] ([facility]) [facility] [place] 1538) [address] POCT-GLUCOSE [id number] 13:48:00 Test Item Value Reference Range Interpretation Comments POC-GLUCOSE METER 150 mg/dL 70-110 H TESTED AT [place] [address] ([facility]) (test code = [facility] 1538) [address] FACTOR 5 ACTIVITY (BLEEDING RISK)2017-01-06 10:04:00 Test Item Value Reference Range Interpretation Comments FACTOR V ACTIVITY (BEAKER) (test code 90.0 % 60.0-150.0 = 665) Effective 10/24/2013: Reference Range Change-Adult onlyNew: 60.0-150.0 Previous: 50.0-150.0CYTOMEGALOVIRUS ANTIBODY, [id number] 09:42:00 Test Item Value Reference Range Interpretation Comments CYTOMEGALOVIRUS IGM ANTIBODY Negative (BEAKER) (test code = 816) HERPES VIRUS ANTIBODY, [id number] 08:59:00 Test Item Value Reference Range Interpretation Comments 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 G 1807) CYTOMEGALOVIRUS ANTIBODY, [id number] 08:59:00 Test Item Value Reference Range Interpretation Comments CYTOMEGALOVIRUS IGG ANTIBODY Positive (BEAKER) (test code = 790) EBV-VCA ANTIBODY, [id number] 08:59:00 Test Item Value Reference Range Interpretation Comments JASE-WALL VCA IGG (BEAKER) (test Positive code = 983) EBV-VCA ANTIBODY, [id number] 08:59:00 Test Item Value Reference Range Interpretation Comments JASE-WALL VCA IGM (BEAKER) (test Negative code = 984) POCT-GLUCOSE [id number] 07:59:00 Test Item Value Reference Range Interpretation Comments POC-GLUCOSE METER 81 mg/dL 70-[address] [facility] 6720 (BEAKER) (test code = [place]ENZ[place] [facility] [place] [address] 3910) COMPREHENSIVE METABOLIC [id number] 06:23:00 Test Item Value Reference Range Interpretation [...] S NOT APPLICABLE FOR DIALYSIS PATIEN TS. [id number] 06:17:00 Test Item Value Reference Range Interpretation Comments MAGNESIUM (BEAKER) (test code = 1.8 mg/dL 1.6-2.6 627) HEPATIC FUNCTION [id number] 06:17:00 Test Item Value Reference Range Interpretation [...] code = 779 U/L 6-55 H 347) [id number] 06:00:00 Test Item Value Reference Range Interpretation Comments FIBRINOGEN LEVEL (BEAKER) (test 390 mg/dl 225-434 code = 658) [id number] 06:00:00 Test Item Value Reference Range Interpretation Comments PARTIAL THROMBOPLASTIN TIME 40.2 seconds 22.5-36.0 H ([facility]) (test code = 760) PROTHROMBIN [id number] 05:59:00 Test Item Value Reference Range Interpretation Comments PROTIME ([facility]) (test code = 14.6 seconds 11.7-14.7 759) INR ([facility]) (test code = 370) 1.2 <=5.9 RECOMMENDED COUMADIN/WARFARIN INR THERAPY RANGESSTANDARD DOSE: 2.0 - 3.0 Includes: PROPHYLAXIS for venous thrombosis, systemic embolization; TREATMENT for venous thrombosis and/or pulmonary embolus.HIGH RISK: Target INR is 2.5-3.5 for patients with mechanical heart valves.POCT-GLUCOSE [id number] 21:46:00 Test Item Value Reference Range Interpretation Comments POC-GLUCOSE METER 153 mg/dL 70-110 H TESTED AT [place] [address] ([facility]) (test code = [place] [facility] [place] 1538) [address] POCT-GLUCOSE [id number] 18:47:00 Test Item Value Reference Range Interpretation Comments POC-GLUCOSE METER 181 mg/dL 70-110 H TESTED AT [place] [address] ([facility]) (test code = [place] [facility] [place] 1538) [address] POCT-GLUCOSE [id number] 12:40:00 Test Item Value Reference Range Interpretation Comments POC-GLUCOSE METER 178 mg/dL 70-110 H TESTED AT [place] [address] ([facility]) (test code = [facility] 1538) [address] POCT-GLUCOSE [id number] 07:51:00 Test Item Value Reference Range Interpretation Comments POC-GLUCOSE METER 166 mg/dL 70-110 H TESTED AT [place] [address] ([facility]) (test code = [facility] 1538) [address] COMPREHENSIVE METABOLIC [id number] 03:26:00 Test Item Value Reference Range Interpretation Comments TOTAL PROTEIN 5.2 gm/dL 6.0-8.3 L ([facility]) (test code = 770) ALBUMIN ([facility]) 2.3 g/dL 3.5-5.0 L (test [...] S NOT APPLICABLE FOR DIALYSIS PATIEN TS. [id number] 03:22:00 Test Item Value Reference Range Interpretation Comments MAGNESIUM (BEAKER) (test code = 1.4 mg/dL 1.6-2.6 L 627) HEPATIC FUNCTION [id number] 03:22:00 Test Item Value Reference Range Interpretation [...] code = 1009 U/L 6-55 H 347) [id number] 03:12:00 Test Item Value Reference Range Interpretation Comments AMMONIA (BEAKER) (test code = 348) 29 mol/L 18-72 [id number] 03:10:00 Test Item Value Reference Range Interpretation Comments PARTIAL THROMBOPLASTIN TIME 42.3 seconds 22.5-36.0 H (BEAKER) (test code = 760) PROTHROMBIN [id number] 03:09:00 Test Item Value Reference Range Interpretation Comments PROTIME (BEAKER) (test code = 16.4 seconds 11.7-14.7 H 759) INR (BEAKER) (test code = 370) 1.3 <=5.9 RECOMMENDED COUMADIN/WARFARIN INR THERAPY RANGESSTANDARD DOSE: 2.0 - 3.0 Includes: PROPHYLAXIS for venous thrombosis, systemic embolization; TREATMENT for venous thrombosis and/or pulmonary embolus.HIGH RISK: Target INR is 2.5-3.5 for patients with mechanical heart valves.[id number] 03:09:00 Test Item Value Reference Range Interpretation Comments FIBRINOGEN LEVEL (BEAKER) (test 413 mg/dl 225-434 code = 658) CBC W/PLT COUNT & AUTO [id number] 03:09:00 Test Item Value Reference Range Interpretation [...] L 0.00-0.20 (test code = 417) 0.00POCT-GLUCOSE [id number] 22:33:00 Test Item Value Reference Range Interpretation Comments POC-GLUCOSE METER 230 mg/dL 70-110 H TESTED AT [place] [address] ([facility]) (test code = [facility] 1538) [address] POCT-GLUCOSE [id number] 18:17:00 Test Item Value Reference Range Interpretation Comments POC-GLUCOSE METER 222 mg/dL 70-[address] [facility] 6720 ([facility] [facility]) (test code = [facility] 1538) [address] COMPREHENSIVE METABOLIC [id number] 16:59:00 Test Item Value Reference Range Interpretation [...] PATIEN TS. PERIPHERAL BLOOD SMEAR - PATHOLOGIST [id number] 15:30:00 Test Item Value Reference Range Interpretation Comments RBC MORPHOLOGY Polychromasia (BEAKER) (test code = 2846) RBC MORPHOLOGY Anisocytosis (BEAKER) (test code = 36877) PERIPHERAL SMR REVIEW Cell counts confirmed (BEAKER) (test code = 0300) [id number] Josefina Lara M.D. (BEAKER) (test code = (electronic signature) 9574) PROTHROMBIN [id number] 15:12:00 Test Item Value Reference Range Interpretation [...] Reference Range Interpretation Comments ANTI-NUCLEAR ANTIBODY (IVETTE) ([employer]) Negative Negative (test code = 418) POCT-GLUCOSE [id number] 12:47:00 Test Item Value Reference Range Interpretation Comments POC-GLUCOSE METER 212 mg/dL 70-[address] [facility] 6720 ([employer]) (test code = [place] 1538) [address] [id number] 12:34:00 Test Item Value Reference Range Interpretation Comments RPR SCREEN ([employer]) (test code = Nonreactive Nonreactive 420) CLOSTRIDIUM DIFFICILE TOXIN [id number] 10:12:00 Test Item Value Reference Range Interpretation Comments CLOSTRIDIUM DIFFICILE TOXIN, PCR Not Detected Not Detected ([employer]) (test code = 1525) This qualitative real-time [...] Reference Range Interpretation Comments FACTOR V ACTIVITY ([employer]) (test code 86.0 % 60.0-150.0 = 665) Effective 10/24/2013: Reference Range Change-Adult onlyNew: 60.0-150.0 Previous: 50.0-150.0FACTOR 5 ACTIVITY (BLEEDING RISK)2017-01-04 09:13:00 Test Item Value Reference Range Interpretation Comments FACTOR V ACTIVITY (BEAKER) (test code 56.0 % 60.0-150.0 L = 665) Effective 10/24/2013: Reference Range Change-Adult onlyNew: 60.0-150.0 Previous: 50.0-150.0POCT-GLUCOSE [id number] 06:40:00 Test Item Value Reference Range Interpretation Comments POC-GLUCOSE METER 167 mg/dL 70-[address] [facility] 6720 (BEAKER) (test code = [place] 1538) [address] COMPREHENSIVE METABOLIC [id number] 04:08:00 Test Item Value Reference Range Interpretation [...] ESTIM ATED GFR. Specimen slightly ictericHEPATIC FUNCTION [id number] 04:06:00 Test Item Value Reference Range Interpretation [...] 1091 U/L 6-55 H 347) Specimen slightly lnhlgujDPAUQDPTJK2751-40-13 04:01:00 Test Item Value Reference Range Interpretation Comments FIBRINOGEN LEVEL (BEAKER) (test 379 mg/dl 225-434 code = 658) [id number] 04:01:00 Test Item Value Reference Range Interpretation Comments PARTIAL THROMBOPLASTIN TIME 40.7 seconds 22.5-36.0 H (BEAKER) (test code = 760) PROTHROMBIN TIME/[id number] 04:00:00 Test Item Value Reference Range Interpretation [...] mechanical heart valves.CBC W/PLT COUNT & AUTO [id number] 03:56:00 Test Item Value Reference Range Interpretation [...] L 0.00-0.20 (test code = 417) 0.00POCT-GLUCOSE [id number] 00:19:00 Test Item Value Reference Range Interpretation Comments POC-GLUCOSE METER 159 mg/dL 70-[address] [facility] 6720 (BEAKER) (test code = [place] 1538) [address] POCT-GLUCOSE [id number] 18:56:00 Test Item Value Reference Range Interpretation Comments POC-GLUCOSE METER 192 mg/dL 70-[address] [facility] 6720 (BEAKER) (test code = [place] 1538) [address] COMPREHENSIVE METABOLIC [id number] 16:55:00 Test Item Value Reference Range Interpretation [...] CALCULATE ESTIM ATED GFR. Specimen slightly ictericPROTHROMBIN TIME/[id number] 16:37:00 Test Item Value Reference Range Interpretation Comments PROTIME (BEAKER) (test code = 20.9 seconds 11.7-14.7 H 759) INR (BEAKER) (test code = 370) 1.8 <=5.9 RECOMMENDED COUMADIN/WARFARIN INR THERAPY RANGESSTANDARD DOSE: 2.0 - 3.0 Includes: PROPHYLAXIS for venous thrombosis, systemic embolization; TREATMENT for venous thrombosis and/or pulmonary embolus.HIGH RISK: Target INR is 2.5-3.5 for patients with mechanical heart valves.HEPATITIS B SURFACE [id number] 14:05:00 Test Item Value Reference Range Interpretation Comments HEPATITIS B SURFACE ANTIBODY < mIU/mL <8.0 (BEAKER) (test code = 647) HEPATITIS B CORE ANTIBODY, [id number] 13:43:00 Test Item Value Reference Range Interpretation Comments HEPATITIS B CORE TOTAL ANTIBODY Nonreactive Nonreactive (BEAKER) (test code = 497) BLOOD GAS, [id number] 13:35:00 Test Item Value Reference Range Interpretation [...] code = 1819) 28.0 % URINALYSIS W/ [id number] 13:16:00 Test Item Value Reference Range Interpretation [...] 1584) SOURCE(BEAKER) (test code = Urine, [place] 7347) VITAMIN D, 39-[id number] 13:14:00 Test Item Value Reference Range Interpretation Comments VITAMIN D 25-OH (BEAKER) (test code = < ng/mL 13.0-47.8 L 2764) ALPHA FETOPROTEIN (AFP), TUMOR [id number] 13:06:00 Test Item Value Reference Range Interpretation Comments ALPHA-FETOPROTEIN (BEAKER) (test code < ng/mL <10.0 = 1094) Effective 05/08/2014: Reference Range ChangeNew: <10.0 Previous: 0.0-8.0 HEMOGLOBIN [id number] 13:05:00 Test Item Value Reference Range Interpretation Comments HEMOGLOBIN A1C (BEAKER) (test code = 7.6 % 4.3-6.1 H 368) CARCINOEMBRYONIC ANTIGEN (CEA)2017-01-03 12:59:00 Test Item Value Reference Range Interpretation Comments CARCINOEMBRYONIC ANTIGEN (BEAKER) 2.0 ng/mL 0.0-5.0 (test code = 685) [id number] 12:59:00 Test Item Value Reference Range Interpretation Comments FERRITIN (BEAKER) (test code = 1841 ng/mL 5-275 H 361) Effective 05/08/2014: Reference Range ChangeNew: Male 5-275 Previous: Male 22- 322 Female 5-275 Female [id number] 12:58:00 Test Item Value Reference Range Interpretation Comments T4 TOTAL (BEAKER) (test code = 895) 4.5 ug/dL 4.9-11.7 L [id number] 12:58:00 Test Item Value Reference Range Interpretation Comments THYROID STIMULATING HORMONE 1.79 uIU/mL 0.35-4.94 (BEAKER) (test code = 772) [id number] 12:58:00 Test Item Value Reference Range Interpretation Comments T3 TOTAL (BEAKER) (test code = 656) 34 ng/dL 48-159 L Effective 05/08/2014: Reference Range ChangeNew: 48-159 Previous: 60-181CALCIUM, [id number] 12:47:00 Test Item Value Reference Range Interpretation Comments CALCIUM IONIZED (BEAKER) (test 1.05 mmol/L 1.12-1.27 L code = 698) PH, BLOOD (BEAKER) (test code = 7.43 1810) [id number] 12:42:00 Test Item Value Reference Range Interpretation [...] % 20-55 (test code = 2590) URIC [id number] 12:40:00 Test Item Value Reference Range Interpretation Comments URIC ACID (BEAKER) (test code = 16.0 mg/dL 2.6-7.2 H 773) Specimen slightly ictericLIPID [id number] 12:40:00 Test Item Value Reference Range Interpretation [...] 160-189 Very High >=190 Specimen slightly ictericBILIRUBIN, [id number] 12:40:00 Test Item Value Reference Range Interpretation Comments BILIRUBIN DIRECT (MADIE) (test 2.4 mg/dL 0.1-0.5 H code = 706) GAMMA GLUTAMYL TRANSFERASE (GGT)2017-01-03 12:40:00 Test Item Value Reference Range Interpretation Comments GAMMA GLUTAMYL TRANSFERASE (MADIE) 53 U/L 9-64 (test code = 364) Specimen slightly [id number] 12:39:00 Test Item Value Reference Range Interpretation Comments ETHANOL (MADIE) (test code = 400) < mg/dL <=10 SCREEN, [id number] 12:36:00 Test Item Value Reference Range Interpretation Comments TEST URINE (MADIE) (test Negative code = 583) POCT-GLUCOSE [id number] 12:34:00 Test Item Value Reference Range Interpretation Comments POC-GLUCOSE METER 189 mg/dL 70-[address] [facility] 6720 (MADIE) (test code = [place] 1538) [address] HIV-1 ANTIGEN WITH HIV-1/2 [id number] 11:58:00 Test Item Value Reference Range Interpretation Comments HIV-1 ANTIGEN WITH HIV 1\\T\\2 Nonreactive Nonreactive ANTIBODY (2) ([employer]) (test code = 2586) TROPONIN [id number] 09:44:00 Test Item Value Reference Range Interpretation [...] 0.0-4.9CK-MB Reference Range:<6.7 Normal6.7-10.0 Borderline>10.0 Abnormal ACETAMINOPHEN [id number] 08:31:00 Test Item Value Reference Range Interpretation Comments ACETAMINOPHEN LEVEL (BEAKER) (test < ug/mL 10.0-30.0 L code = 344) TROPONIN [id number] 05:53:00 Test Item Value Reference Range Interpretation [...] acute neurological disease, and persistent tachyarrhythmia.BASIC METABOLIC [id number] 05:53:00 Test Item Value Reference Range Interpretation [...] TO CALCULA TE ESTIMATED GFR. Specimen slightly [id number] 05:52:00 Test Item Value Reference Range Interpretation Comments PHOSPHORUS (BEAKER) (test code = 5.7 mg/dL 2.3-4.7 H 604) HEPATIC FUNCTION [id number] 05:52:00 Test Item Value Reference Range Interpretation [...] Specimen slightly ictericCREATINE KINASE (CK), TOTAL AND [id number] 05:52:00 Test Item Value Reference Range Interpretation Comments CREATINE KINASE TOTAL (BEAKER) 341 U/L 29-200 H (test code = 380) CREATINE KINASE-MB (BEAKER) (test 5.4 ng/mL 0.0-6.6 code = 750) CREATINE KINASE-MB INDEX (BEAKER) 1.6 % (test code = 395) Effective 05/08/2014: CK-MB Reference Range ChangeNew: 0.0-6.6 Previous: 0.0-4.9CK-MB Reference Range:<6.7 Normal6.7-10.0 Borderline>10.0 Abnormal CBC W/PLT COUNT & AUTO [id number] 05:48:00 Test Item Value Reference Range Interpretation [...] K/ L 0.00-0.20 (test code = 417) 0.01NSGOYPUPCJ4744-53-81 05:09:00 Test Item Value Reference Range Interpretation Comments FIBRINOGEN LEVEL (BEAKER) (test 427 mg/dl 225-434 code = 658) [id number] 05:09:00 Test Item Value Reference Range Interpretation Comments PARTIAL THROMBOPLASTIN TIME 36.2 seconds 22.5-36.0 H (BEAKER) (test code = 760) PROTHROMBIN TIME/[id number] 05:08:00 Test Item Value Reference Range Interpretation Comments PROTIME (BEAKER) (test code = 22.8 seconds 11.7-14.7 H 759) INR (BEAKER) (test code = 370) 2.0 <=5.9 RECOMMENDED COUMADIN/WARFARIN INR THERAPY RANGESSTANDARD DOSE: 2.0 - 3.0 Includes: PROPHYLAXIS for venous thrombosis, systemic embolization; TREATMENT for venous thrombosis and/or pulmonary embolus.HIGH RISK: Target INR is 2.5-3.5 for patients with mechanical heart valves.HEPATITIS PANEL, [id number] 03:40:00 Test Item Value Reference Range Interpretation Comments HEPATITIS A IGM ANTIBODY (BEAKER) Nonreactive Nonreactive (test code = 498) HEPATITIS B CORE IGM ANTIBODY Nonreactive Nonreactive (BEAKER) (test code = 645) HEPATITIS C ANTIBODY (BEAKER) Nonreactive Nonreactive (test code = 367) HEPATITIS B SURFACE ANTIGEN (2) Nonreactive Nonreactive (BEAKER) (test code = 2585) CREATININE, RANDOM [id number] 03:18:00 Test Item Value Reference Range Interpretation Comments CREATININE URINE (BEAKER) (test 118.7 mg/dL code = 375) Reference Range: No NormalsSODIUM, RANDOM [id number] 03:18:00 Test Item Value Reference Range Interpretation Comments SODIUM URINE (BEAKER) (test code = 60 meq/L 243) Reference Range: No NormalsUREA NITROGEN, RANDOM [id number] 03:18:00 Test Item Value Reference Range Interpretation Comments UREA NITROGEN URINE (BEAKER) (test 303 mg/dL code = 538) Reference Range: No [id number] 03:07:00 Test Item Value Reference Range Interpretation Comments AMMONIA (BEAKER) (test code = 348) 48 mol/L 18-72 J-[id number] 02:57:00 Test Item Value Reference Range Interpretation [...] within 95-100% range. URINALYSIS W/ REFLEX URINE [id number] 02:53:00 Test Item Value Reference Range Interpretation [...] = 514) SOURCE(BEAKER) (test code = 2795) [id number] 02:49:00 Test Item Value Reference Range Interpretation Comments PARTIAL THROMBOPLASTIN TIME 39.4 seconds 22.5-36.0 H (BEAKER) (test code = 760) PROTHROMBIN [id number] 02:48:00 Test Item Value Reference Range Interpretation Comments PROTIME (BEAKER) (test code = 22.0 seconds 11.7-14.7 H 759) INR (BEAKER) (test code = 370) 1.9 <=5.9 RECOMMENDED COUMADIN/WARFARIN INR THERAPY RANGESSTANDARD DOSE: 2.0 - 3.0 Includes: PROPHYLAXIS for venous thrombosis, systemic embolization; TREATMENT for venous thrombosis and/or pulmonary embolus.HIGH RISK: Target INR is 2.5-3.5 for patients with mechanical heart valves.[id number] 02:48:00 Test Item Value Reference Range Interpretation Comments FIBRINOGEN LEVEL (BEAKER) (test 421 mg/dl 225-434 code = 658) BLOOD GAS, [id number] 02:43:00 Test Item Value Reference Range Interpretation [...] 21.0 % CBC W/PLT COUNT & AUTO [id number] 02:43:00 Test Item Value Reference Range Interpretation [...] code = 417) 0.00LACTIC ACID, VENOUS, WHOLE [id number] 02:35:00 Test Item Value Reference Range Interpretation Comments LACTATE BLOOD VENOUS (2) (BEAKER) 0.8 mmol/L 0.5-2.2 (test code = 2872) Effective 10/23/2015: Units/Reference Range ChangeNew: 0.5-2.2 mmol/L Previous: 5- 20 mg/dLSpecimen slightly [id number] 11:32:00 Test Item Value Reference Range Interpretation Comments AGAP (test code = AGAP) 14.6 10.0-20.0 [id number] 11:32:00 Test Item Value Reference Range Interpretation Comments eGFR (test code = eGFR) 33 [facility] HospitalOacyvtvDNGFQJBCIXEX2739-45-58 11:32:00 Test Item Value Reference Range Interpretation Comments Calcium Lvl (test code = Calcium Lvl) 8.3 8.5-10.5 [facility] Hos[id number] 11:32:00 Test Item Value Reference Range Interpretation Comments Glucose Lvl (test code = Glucose Lvl) 81 70-99 [facility] HospitalMrpwfgbILEUEKINUNNQ0691-20-33 11:32:00 Test Item Value Reference Range Interpretation Comments Creatinine Lvl (test code = Creatinine 1.95 0.50-1.40 Lvl) [facility] HospitalZqnjgwzWADSZGZYRQRI4903-25-11 11:32:00 Test Item Value Reference Range Interpretation Comments BUN (test code = BUN) 55 7-22 [facility] HospitalHnyrxzoBQGTQIBHVFJI0599-85-17 11:32:00 Test Item Value Reference Range Interpretation Comments CO2 (test code = CO2) 19 24-32 [facility] HospitalZkmelueOLKDMEVQSIDE3044-05-18 11:32:00 Test Item Value Reference Range Interpretation Comments Chloride Lvl (test code = Chloride Lvl) 110 95-109 [facility] HospitalXfawhrlYZBSSAUATRII1492-32-07 11:32:00 Test Item Value Reference Range Interpretation Comments Sodium Lvl (test code = Sodium Lvl) 139 135-145 [facility] HospitalBlszrldBVJORUYRDXRB0560-91-84 11:32:00 Test Item Value Reference Range Interpretation Comments Potassium Lvl (test code = Potassium 4.6 3.5-5.1 Lvl) [facility] CampusUtpavufPQOUUNPEEM3321-95-56 11:32:00 Test Item Value Reference Range Interpretation Comments Lymphocytes (test code = Lymphocytes) 30.4 20.0-40.0 [facility] CampusAqpeqdsCQQIWZLDFF2150-55-74 11:32:00 Test Item Value Reference Range Interpretation Comments Eosinophils (test code = 4.5 See_Comment [A utomated message] The Eosinophils) system which ge nerated this result tra nsmitted reference range : <=4.0. The reference r leo was not used to int erpret this result as normal/abnormal . [facility] CampusCjwtwtjIHHXLQHIMU5976-90-72 11:32:00 Test Item Value Reference Range Interpretation Comments Monocytes (test code = Monocytes) 13.7 2.0-12.0 [facility] CampusBmalhxdASBCNNNAWD7405-36-17 11:32:00 Test Item Value Reference Range Interpretation Comments Segs-Bands # (test code = Segs-Bands #) 2.6 1.5-8.1 [facility] CampusCoefqkxGMFGECDIIM6084-57-74 11:32:00 Test Item Value Reference Range Interpretation Comments Basophils (test code = 0.7 See_Comment [Aut omated message] The Basophils) system which ge nerated this result tra nsmitted reference range : <=1.0. The reference r leo was not used to int erpret this result as normal/abnormal . [facility] CampusKlvjutzWYNZPTMRBK7998-19-12 11:32:00 Test Item Value Reference Range Interpretation Comments Monocytes # (test code 0.7 See_Comment [Aut omated message] The = Monocytes #) system which generated this result tra nsmitted reference range : <=0.8. The reference r leo was not used to int erpret this result as normal/abnormal . [facility] CampusFxcmhjeJZBODRASVJ8283-49-18 11:32:00 Test Item Value Reference Range Interpretation Comments Lymphocytes # (test code = Lymphocytes 1.6 1.0-5.5 #) [facility] CampusZanuqqrXCHDLNILOO6208-64-48 11:32:00 Test Item Value Reference Range Interpretation Comments Eosinophils # (test code 0.2 See_Comment [A utomated message] The = Eosinophils #) system whic h generated this result tra nsmitted reference range : <=0.5. The reference r leo was not used to int erpret this result as normal/abnormal . [facility] CampusAlqfksrXDPIVELAQD9428-54-25 11:32:00 Test Item Value Reference Range Interpretation Comments Segs (test code = Segs) 50.7 45.0-75.0 [facility] CampusCgsncwnHLRRCFCVER7246-52-92 11:32:00 Test Item Value Reference Range Interpretation [...] iron deficiency anemia, and renal disease. CPT: 69379 [facility] CampusDhgwdomEMAYCBVZSO3409-16-92 11:32:00 Test Item Value Reference Range Interpretation Comments Hct (test code = Hct) 28.1 36.0-48.0 [facility] CampusZwtnhkzFRWDZTDFBC6513-57-62 11:32:00 Test Item Value Reference Range Interpretation Comments RBC (test code = RBC) 3.39 4.20-5.40 [facility] CampusUemhetyPQAJMXYPXF6349-97-39 11:32:00 Test Item Value Reference Range Interpretation Comments Hgb (test code = Hgb) 8.9 12.0-16.0 [facility] CampusExjmpvxTGUWKKPKAX9074-43-86 11:32:00 Test Item Value Reference Range Interpretation Comments WBC (test code = WBC) 5.1 3.7-10.4 [facility] CampusUwbmplqMOHWLBLXVM5201-45-52 11:32:00 Test Item Value Reference Range Interpretation Comments MPV (test code = MPV) 11.3 7.4-10.4 [facility] CampusHqframeLAIGJTAQVX1932-75-86 11:32:00 Test Item Value Reference Range Interpretation Comments Platelet (test code = Platelet) 118 133-450 [facility] CampusHbulzpnUONXZWXSIE6740-86-48 11:32:00 Test Item Value Reference Range Interpretation Comments MCHC (test code = MCHC) 31.8 32.0-36.0 [facility] CampusUhllxuoIXXKQYRCIQ4961-86-33 11:32:00 Test Item Value Reference Range Interpretation Comments RDW (test code = RDW) 18.0 11.5-14.5 [facility] CampusEmzjqcnNUTBZKMTAO3963-70-07 11:32:00 Test Item Value Reference Range Interpretation Comments MCV (test code = MCV) 83.0 80.0-98.0 [facility] CampusZdibhlqGZPQHYATOO3146-56-06 11:32:00 Test Item Value Reference Range Interpretation Comments MCH (test code = MCH) 26.4 pg 27.0-31.0 [facility]WxxfwdaEHDQLSIYQW5442-93-40 11:32:00 Test Item Value Reference Range Interpretation Comments C3 Complement (test code = C3 137 88-201 Complement) [facility] CenterMhjhxfjNVIHVSBNLH1210-76-22 11:32:00 Test Item Value Reference Range Interpretation Comments HIV. (test code = Negative *NA*(07/30/16 HIV.) 5:32 AM) [facility] HospitalJlrtfduWYYIIGTBODSA7242-78-15 11:32:00 Test Item Value Reference Range Interpretation Comments AGAP (test code = AGAP) 14.6 10.0-20.0 [facility] HospitalNufjdydCKUEDYQGJEMK1916-46-67 11:32:00 Test Item Value Reference Range Interpretation Comments eGFR (test code = eGFR) 33 [facility] HospitalGsmqmomTNVAVTQTNFLD9522-13-98 11:32:00 Test Item Value Reference Range Interpretation Comments Calcium Lvl (test code = Calcium Lvl) 8.3 8.5-10.5 [facility] HospitalRsybxgbCZQUZBFOHVII8787-88-34 11:32:00 Test Item Value Reference Range Interpretation Comments Glucose Lvl (test code = Glucose Lvl) 81 70-99 [facility] HospitalJynddyqNVCQPEVLBYXH2042-39-05 11:32:00 Test Item Value Reference Range Interpretation Comments Creatinine Lvl (test code = Creatinine 1.95 0.50-1.40 Lvl) [facility] HospitalFtqhbsnWNCHOXVATFTM2836-13-41 11:32:00 Test Item Value Reference Range Interpretation Comments BUN (test code = BUN) 55 7-22 [facility] HospitalUmwovjgGCDHHKQTBTWQ5352-45-53 11:32:00 Test Item Value Reference Range Interpretation Comments CO2 (test code = CO2) 19 24-32 [facility] HospitalBfvlqnwGSYWWBBYGFII9024-24-17 11:32:00 Test Item Value Reference Range Interpretation Comments Chloride Lvl (test code = Chloride Lvl) 110 95-109 [facility] HospitalCzlsflkFJITXSJURXTZ1658-55-94 11:32:00 Test Item Value Reference Range Interpretation Comments Sodium Lvl (test code = Sodium Lvl) 139 135-145 [facility] HospitalYwwetpmMWNWLPLMGMZL6159-83-91 11:32:00 Test Item Value Reference Range Interpretation Comments Potassium Lvl (test code = Potassium 4.6 3.5-5.1 Lvl) [facility] CampusBgwrwvpMHUKILUSDD1518-52-21 11:32:00 Test Item Value Reference Range Interpretation Comments Lymphocytes (test code = Lymphocytes) 30.4 20.0-40.0 [facility] CampusYvsqvvvFZTAPYIGUX6360-90-22 11:32:00 Test Item Value Reference Range Interpretation Comments Eosinophils (test code = 4.5 See_Comment [A utomated message] The Eosinophils) system which ge nerated this result tra nsmitted reference range : <=4.0. The reference r leo was not used to int erpret this result as normal/abnormal . [facility] CampusFcgefocYFKORVCCMS6928-58-41 11:32:00 Test Item Value Reference Range Interpretation Comments Monocytes (test code = Monocytes) 13.7 2.0-12.0 [facility] CampusJakcsfxODFXEYQGSX1750-16-32 11:32:00 Test Item Value Reference Range Interpretation Comments Segs-Bands # (test code = Segs-Bands #) 2.6 1.5-8.1 [facility] CampusAbwhkujPVCKNGYXJK2559-76-94 11:32:00 Test Item Value Reference Range Interpretation Comments Basophils (test code = 0.7 See_Comment [Aut omated message] The Basophils) system which ge nerated this result tra nsmitted reference range : <=1.0. The reference r leo was not used to int erpret this result as normal/abnormal . [facility] CampusUfpvmfnXWTUGGSNAC7243-83-69 11:32:00 Test Item Value Reference Range Interpretation Comments Monocytes # (test code 0.7 See_Comment [Aut omated message] The = Monocytes #) system which generated this result tra nsmitted reference range : <=0.8. The reference r leo was not used to int erpret this result as normal/abnormal . [facility] CampusGzfctnaPAWIIFDAEQ2745-63-94 11:32:00 Test Item Value Reference Range Interpretation Comments Lymphocytes # (test code = Lymphocytes 1.6 1.0-5.5 #) [facility] CampusFrejjznCDQXKHCADV2814-39-55 11:32:00 Test Item Value Reference Range Interpretation Comments Eosinophils # (test code 0.2 See_Comment [A utomated message] The = Eosinophils #) system [facility] generated this result tra nsmitted reference range : <=0.5. The reference r leo was not used to int erpret this result as normal/abnormal . [facility] CampusSnbfrtyDUHJEUSODU6156-32-43 11:32:00 Test Item Value Reference Range Interpretation Comments Segs (test code = Segs) 50.7 45.0-75.0 [facility] CampusNqmzhrtDXHZDWYAPE6533-31-96 11:32:00 Test Item Value Reference Range Interpretation [...] iron deficiency anemia, and renal disease. CPT: 54604 [facility] CampusMnzofkeZRAGCNZZKE6316-90-34 11:32:00 Test Item Value Reference Range Interpretation Comments Hct (test code = Hct) 28.1 36.0-48.0 [facility] CampusZkbeenbGEZAXUQBPT4876-59-24 11:32:00 Test Item Value Reference Range Interpretation Comments RBC (test code = RBC) 3.39 4.20-5.40 [facility] CampusRoehaidLDXGOUKICL2529-11-75 11:32:00 Test Item Value Reference Range Interpretation Comments Hgb (test code = Hgb) 8.9 12.0-16.0 [facility] CampusGuowzrqBBGFCATGRG3613-37-56 11:32:00 Test Item Value Reference Range Interpretation Comments WBC (test code = WBC) 5.1 3.7-10.4 [facility]NgjpasqTVWSELXTTT9207-49-17 11:32:00 Test Item Value Reference Range Interpretation Comments MPV (test code = MPV) 11.3 7.4-10.4 [facility] CampusOkmiolmVELBGDHXMN4411-87-50 11:32:00 Test Item Value Reference Range Interpretation Comments Platelet (test code = Platelet) 118 133-450 [facility] CampusUijslegORMVXZWVDD2551-66-29 11:32:00 Test Item Value Reference Range Interpretation Comments MCHC (test code = MCHC) 31.8 32.0-36.0 [facility] CampusUpohhmiCTCIRQWNPW9196-29-70 11:32:00 Test Item Value Reference Range Interpretation Comments RDW (test code = RDW) 18.0 11.5-14.5 [facility] CampusYsvzafpNIZHMHWNNB6447-57-18 11:32:00 Test Item Value Reference Range Interpretation Comments MCV (test code = MCV) 83.0 80.0-98.0 [facility] CampusGudkvshLGMSENJHMJ2824-75-38 11:32:00 Test Item Value Reference Range Interpretation Comments MCH (test code = MCH) 26.4 pg 27.0-31.0 [facility]AlxbbyrVIRBKNVRHJ8416-79-81 11:32:00 Test Item Value Reference Range Interpretation Comments C3 Complement (test code = C3 137 88-201 Complement) [facility] CenterHputpttFWZFERHIKM8742-37-67 11:32:00 Test Item Value Reference Range Interpretation Comments HIV. (test code = Negative *NA*(07/30/16 HIV.) 5:32 AM) [facility]AjabdjvGJKGCXJOYFID6106-96-33 11:32:00 Test Item Value Reference Range Interpretation Comments AGAP (test code = AGAP) 14.6 10.0-20.0 [facility] HospitalWkjhuwbIIJCRZPEVHLR6976-70-39 11:32:00 Test Item Value Reference Range Interpretation Comments eGFR (test code = eGFR) 33 [facility] HospitalTlwdmvwFXDJPAVDVJXL2131-64-69 11:32:00 Test Item Value Reference Range Interpretation Comments Calcium Lvl (test code = Calcium Lvl) 8.3 8.5-10.5 [facility] HospitalXqzdbqpJICSLTNZGPUQ0414-12-74 11:32:00 Test Item Value Reference Range Interpretation Comments Glucose Lvl (test code = Glucose Lvl) 81 70-99 [facility] HospitalOaasqsbBXDKDCUYJLQV0903-72-08 11:32:00 Test Item Value Reference Range Interpretation Comments Creatinine Lvl (test code = Creatinine 1.95 0.50-1.40 Lvl) [facility] HospitalPfoeduySEFBFILJAYFA9594-40-03 11:32:00 Test Item Value Reference Range Interpretation Comments BUN (test code = BUN) 55 7-22 [facility] HospitalOifzxuxRGMGXOJMAXJU8026-47-42 11:32:00 Test Item Value Reference Range Interpretation Comments CO2 (test code = CO2) 19 24-32 [facility] HospitalCfseygmMUGKWNGTGEIU2644-70-89 11:32:00 Test Item Value Reference Range Interpretation Comments Chloride Lvl (test code = Chloride Lvl) 110 95-109 [facility] HospitalVkhirheDOWSBRPHTBSJ5691-13-91 11:32:00 Test Item Value Reference Range Interpretation Comments Sodium Lvl (test code = Sodium Lvl) 139 135-145 [facility] HospitalTxtylbqKKTNZBQESGUY7507-89-36 11:32:00 Test Item Value Reference Range Interpretation Comments Potassium Lvl (test code = Potassium 4.6 3.5-5.1 Lvl) [facility] CampusJtdblddTETHVKHFIT5051-57-49 11:32:00 Test Item Value Reference Range Interpretation Comments Lymphocytes (test code = Lymphocytes) 30.4 20.0-40.0 [facility] CampusKbjxmdmPSVHZINSHY0023-78-87 11:32:00 Test Item Value Reference Range Interpretation Comments Eosinophils (test code = 4.5 See_Comment [A utomated message] The Eosinophils) system which ge nerated this result tra nsmitted reference range : <=4.0. The reference r leo was not used to int erpret this result as normal/abnormal . [facility] CampusGbnhjuvKYAIPEGYRL5138-33-66 11:32:00 Test Item Value Reference Range Interpretation Comments Monocytes (test code = Monocytes) 13.7 2.0-12.0 [facility] CampusPzmffynNMQPAVJYJP0336-22-22 11:32:00 Test Item Value Reference Range Interpretation Comments Segs-Bands # (test code = Segs-Bands #) 2.6 1.5-8.1 [facility] CampusMvfrmazNGOVOLKPTA1048-60-15 11:32:00 Test Item Value Reference Range Interpretation Comments Basophils (test code = 0.7 See_Comment [Aut omated message] The Basophils) system which ge nerated this result tra nsmitted reference range : <=1.0. The reference r leo was not used to int erpret this result as normal/abnormal . [facility] CampusRhclcyoNXAAAGRCER8242-00-96 11:32:00 Test Item Value Reference Range Interpretation Comments Monocytes # (test code 0.7 See_Comment [Aut omated message] The = Monocytes #) system which generated this result tra nsmitted reference range : <=0.8. The reference r leo was not used to int erpret this result as normal/abnormal . [facility] CampusRrgixmaMBYSVTHDKR6163-90-35 11:32:00 Test Item Value Reference Range Interpretation Comments Lymphocytes # (test code = Lymphocytes 1.6 1.0-5.5 #) [facility] CampusLywlmcrSPFSOTWROY7753-60-54 11:32:00 Test Item Value Reference Range Interpretation Comments Eosinophils # (test code 0.2 See_Comment [A utomated message] The = Eosinophils #) system [facility] h generated this result tra nsmitted reference range : <=0.5. The reference r leo was not used to int erpret this result as normal/abnormal . [facility] CampusZkdlbseORRGGNELEX1499-65-38 11:32:00 Test Item Value Reference Range Interpretation Comments Segs (test code = Segs) 50.7 45.0-75.0 [facility] CampusFawlkorYKPGNAODRW5269-55-76 11:32:00 Test Item Value Reference Range Interpretation [...] iron deficiency anemia, and renal disease. CPT: 61774 [facility] CampusZueryiyQQWMBUJCWJ0672-41-31 11:32:00 Test Item Value Reference Range Interpretation Comments Hct (test code = Hct) 28.1 36.0-48.0 [facility] CampusKbqbgdvWBUTEBZCKU7458-94-41 11:32:00 Test Item Value Reference Range Interpretation Comments RBC (test code = RBC) 3.39 4.20-5.40 [facility] CampusIcjowvdSITOHDHCYR0292-47-44 11:32:00 Test Item Value Reference Range Interpretation Comments Hgb (test code = Hgb) 8.9 12.0-16.0 [facility] CampusKsqdjvaTPXTCXYRGS2600-93-23 11:32:00 Test Item Value Reference Range Interpretation Comments WBC (test code = WBC) 5.1 3.7-10.4 [facility] CampusYuvrecxTREONDTCGK0911-10-75 11:32:00 Test Item Value Reference Range Interpretation Comments MPV (test code = MPV) 11.3 7.4-10.4 [facility] CampusGprytfnZTOUUTOWBD1012-83-03 11:32:00 Test Item Value Reference Range Interpretation Comments Platelet (test code = Platelet) 118 133-450 [facility] CampusHlpzeejWNQEQZKKPG3119-76-73 11:32:00 Test Item Value Reference Range Interpretation Comments MCHC (test code = MCHC) 31.8 32.0-36.0 [facility] CampusHcnkdmuDOCXBYRJQE1647-56-34 11:32:00 Test Item Value Reference Range Interpretation Comments RDW (test code = RDW) 18.0 11.5-14.5 [place] 296197-02-09 11:32:00 Test Item Value Reference Range Interpretation Comments MCV (test code = MCV) 83.0 80.0-98.0 [facility] CampusJtkcxptYPZAHUABBY7531-19-12 11:32:00 Test Item Value Reference Range Interpretation Comments MCH (test code = MCH) 26.4 pg 27.0-31.0 [facility] CenterBhhzekkPLYRSUEFUE0061-57-04 11:32:00 Test Item Value Reference Range Interpretation Comments C3 Complement (test code = C3 137 88-201 Complement) [facility] CenterAkktkpyETORJYBBOA1618-17-91 11:32:00 Test Item Value Reference Range Interpretation Comments HIV. (test code = Negative *NA*(07/30/16 HIV.) 5:32 AM) [facility]YewpqymTVTFVVGYOCVG1458-05-02 11:32:00 Test Item Value Reference Range Interpretation Comments AGAP (test code = AGAP) 14.6 10.0-20.0 [facility] HospitalStymrngXJPAKGUOTIAV9699-52-02 11:32:00 Test Item Value Reference Range Interpretation Comments eGFR (test code = eGFR) 33 [facility] HospitalZshrsmvFYWKJPMQVAHZ5365-85-46 11:32:00 Test Item Value Reference Range Interpretation Comments Calcium Lvl (test code = Calcium Lvl) 8.3 8.5-10.5 [facility] HospitalTfpifkqWYHBRSYNESPH7343-71-09 11:32:00 Test Item Value Reference Range Interpretation Comments Glucose Lvl (test code = Glucose Lvl) 81 70-99 [facility] HospitalUqkpmvkBIHDEDUQRBJZ8598-76-77 11:32:00 Test Item Value Reference Range Interpretation Comments Creatinine Lvl (test code = Creatinine 1.95 0.50-1.40 Lvl) [facility] HospitalJxtkngcXSAQOQNPZCCQ3709-45-41 11:32:00 Test Item Value Reference Range Interpretation Comments BUN (test code = BUN) 55 7-22 [facility] HospitalPujjmqoNDUYFEGPTRWG0828-17-52 11:32:00 Test Item Value Reference Range Interpretation Comments CO2 (test code = CO2) 19 24-32 [facility] HospitalIvbdtqzFCJAQAWJJPNJ9026-78-78 11:32:00 Test Item Value Reference Range Interpretation Comments Chloride Lvl (test code = Chloride Lvl) 110 95-109 [facility] HospitalGuknjwtRXMUBIFWTNMM1208-45-45 11:32:00 Test Item Value Reference Range Interpretation Comments Sodium Lvl (test code = Sodium Lvl) 139 135-145 [facility]FlrhgbjBXLBILPGUOCR6304-30-33 11:32:00 Test Item Value Reference Range Interpretation Comments Potassium Lvl (test code = Potassium 4.6 3.5-5.1 Lvl) [facility] CampusShjpmwqQMBASMUZZF2105-20-90 11:32:00 Test Item Value Reference Range Interpretation Comments Lymphocytes (test code = Lymphocytes) 30.4 20.0-40.0 [facility] CampusYeddlpmXPWTPRLLDY5458-14-72 11:32:00 Test Item Value Reference Range Interpretation Comments Eosinophils (test code = 4.5 See_Comment [A utomated message] The Eosinophils) system which ge nerated this result tra nsmitted reference range : <=4.0. The reference r leo was not used to int erpret this result as normal/abnormal . [facility] CampusXbiookcHZLYXNZADF6628-54-13 11:32:00 Test Item Value Reference Range Interpretation Comments Monocytes (test code = Monocytes) 13.7 2.0-12.0 [facility] CampusIuwenpdBONBLUJDQP9248-43-50 11:32:00 Test Item Value Reference Range Interpretation Comments Segs-Bands # (test code = Segs-Bands #) 2.6 1.5-8.1 [facility] CampusQfinaoxZVMSCTKCRJ8418-76-81 11:32:00 Test Item Value Reference Range Interpretation Comments Basophils (test code = 0.7 See_Comment [Aut omated message] The Basophils) system which ge nerated this result tra nsmitted reference range : <=1.0. The reference r leo was not used to int erpret this result as normal/abnormal . [facility] CampusIbfitmzDDGPOTNHJS4845-93-56 11:32:00 Test Item Value Reference Range Interpretation Comments Monocytes # (test code 0.7 See_Comment [Aut omated message] The = Monocytes #) system which generated this result tra nsmitted reference range : <=0.8. The reference r leo was not used to int erpret this result as normal/abnormal . [facility] CampusMqolhvvAWNPVFDZZC6221-98-14 11:32:00 Test Item Value Reference Range Interpretation Comments Lymphocytes # (test code = Lymphocytes 1.6 1.0-5.5 #) [facility] CampusFrvzbiaJDPJNCKXIE9668-81-38 11:32:00 Test Item Value Reference Range Interpretation Comments Eosinophils # (test code 0.2 See_Comment [A utomated message] The = Eosinophils #) system [employer] generated this result tra nsmitted reference range : <=0.5. The reference r leo was not used to int erpret this result as normal/abnormal . [facility] CampusPqbqjdwUIDUGAGQOD8000-61-53 11:32:00 Test Item Value Reference Range Interpretation Comments Segs (test code = Segs) 50.7 45.0-75.0 [facility] CampusIboyovgGKAIWCRQMC0569-21-12 11:32:00 Test Item Value Reference Range Interpretation [...] iron deficiency anemia, and renal disease. CPT: 86168 [facility] CampusWnmomgaCJHHXIIRFJ3838-92-01 11:32:00 Test Item Value Reference Range Interpretation Comments Hct (test code = Hct) 28.1 36.0-48.0 [facility] CampusEjyterrESYCCGADIZ6580-00-72 11:32:00 Test Item Value Reference Range Interpretation Comments RBC (test code = RBC) 3.39 4.20-5.40 [facility] CampusHskprnuDAACECIMZC8676-20-84 11:32:00 Test Item Value Reference Range Interpretation Comments Hgb (test code = Hgb) 8.9 12.0-16.0 [facility] CampusBsordsrBVCJQIZBBS5702-04-09 11:32:00 Test Item Value Reference Range Interpretation Comments WBC (test code = WBC) 5.1 3.7-10.4 [facility] CampusJylrnqyNNUQKKLKGR0058-38-51 11:32:00 Test Item Value Reference Range Interpretation Comments MPV (test code = MPV) 11.3 7.4-10.4 [facility] CampusJpmmmizYHISEHCZZY7323-67-45 11:32:00 Test Item Value Reference Range Interpretation Comments Platelet (test code = Platelet) 118 133-450 [facility] CampusUjklogjMALAUIPAFX7624-34-83 11:32:00 Test Item Value Reference Range Interpretation Comments MCHC (test code = MCHC) 31.8 32.0-36.0 [facility] CampusWjnbekvPNKWQLPBHF5313-37-36 11:32:00 Test Item Value Reference Range Interpretation Comments RDW (test code = RDW) 18.0 11.5-14.5 [facility] CampusDruvjyfZGVIPKOTDJ4244-75-07 11:32:00 Test Item Value Reference Range Interpretation Comments MCV (test code = MCV) 83.0 80.0-98.0 [facility] CampusNtmaxctKIIIMFWWXA8459-45-45 11:32:00 Test Item Value Reference Range Interpretation Comments MCH (test code = MCH) 26.4 pg 27.0-31.0 [facility] CenterOjjdikfLXXPNESKOW3622-60-89 11:32:00 Test Item Value Reference Range Interpretation Comments C3 Complement (test code = C3 137 88-201 Complement) [facility] CenterBirslmgODMHCWTYAD3706-94-69 11:32:00 Test Item Value Reference Range Interpretation Comments HIV. (test code = Negative *NA*(07/30/16 HIV.) 5:32 AM) [facility] HospitalQlhioclUGDLPGHZIQVA2568-08-65 11:32:00 Test Item Value Reference Range Interpretation Comments AGAP (test code = AGAP) 14.6 10.0-20.0 [facility]AkldlaoYMPKXEEQZZKI8846-04-30 11:32:00 Test Item Value Reference Range Interpretation Comments eGFR (test code = eGFR) 33 [facility] HospitalWiqvgzcBWLDTKSGEROC3727-52-22 11:32:00 Test Item Value Reference Range Interpretation Comments Calcium Lvl (test code = Calcium Lvl) 8.3 8.5-10.5 [facility] HospitalEkywkidKJPPDAQSGWCS8435-96-31 11:32:00 Test Item Value Reference Range Interpretation Comments Glucose Lvl (test code = Glucose Lvl) 81 70-99 [facility] HospitalGotoyfiXZCEDVQFFJMQ6935-71-59 11:32:00 Test Item Value Reference Range Interpretation Comments Creatinine Lvl (test code = Creatinine 1.95 0.50-1.40 Lvl) [facility] HospitalZqavphzMJKOXASPKHGZ0440-99-43 11:32:00 Test Item Value Reference Range Interpretation Comments BUN (test code = BUN) 55 7-22 [facility] HospitalFwtwwfkNKAVUPOBPHPK8586-96-05 11:32:00 Test Item Value Reference Range Interpretation Comments CO2 (test code = CO2) 19 24-32 [facility] HospitalUqsgvyvSYWTSUMYKZGT8974-97-93 11:32:00 Test Item Value Reference Range Interpretation Comments Chloride Lvl (test code = Chloride Lvl) 110 95-109 [facility] HospitalLuqeqyhMZKLUHAUFEZE4594-59-42 11:32:00 Test Item Value Reference Range Interpretation Comments Sodium Lvl (test code = Sodium Lvl) 139 135-145 [facility] HospitalHjrtpwpNANOAVNBSAHO0732-06-29 11:32:00 Test Item Value Reference Range Interpretation Comments Potassium Lvl (test code = Potassium 4.6 3.5-5.1 Lvl) [facility] CampusXlzcnkzJUSQUDIZDH2734-89-66 11:32:00 Test Item Value Reference Range Interpretation Comments Lymphocytes (test code = Lymphocytes) 30.4 20.0-40.0 [facility] CampusNzxmwpkTEHVASWCNG6654-27-73 11:32:00 Test Item Value Reference Range Interpretation Comments Eosinophils (test code = 4.5 See_Comment [A utomated message] The Eosinophils) system which ge nerated this result tra nsmitted reference range : <=4.0. The reference r leo was not used to int erpret this result as normal/abnormal . [facility] CampusElyzixlTQUFMEBBDI6998-54-01 11:32:00 Test Item Value Reference Range Interpretation Comments Monocytes (test code = Monocytes) 13.7 2.0-12.0 [facility] CampusAllchwrXYITZEHXWO2159-36-00 11:32:00 Test Item Value Reference Range Interpretation Comments Segs-Bands # (test code = Segs-Bands #) 2.6 1.5-8.1 [facility] CampusBkfojhlPWKHROJHNT9845-42-61 11:32:00 Test Item Value Reference Range Interpretation Comments Basophils (test code = 0.7 See_Comment [Aut omated message] The Basophils) system which ge nerated this result tra nsmitted reference range : <=1.0. The reference r leo was not used to int erpret this result as normal/abnormal . [facility] CampusNqvbbulMSZKTOISNA1456-22-37 11:32:00 Test Item Value Reference Range Interpretation Comments Monocytes # (test code 0.7 See_Comment [Aut omated message] The = Monocytes #) system which generated this result tra nsmitted reference range : <=0.8. The reference r leo was not used to int erpret this result as normal/abnormal . [facility] CampusYxgfcqfWMJEXXTLMY5789-77-11 11:32:00 Test Item Value Reference Range Interpretation Comments Lymphocytes # (test code = Lymphocytes 1.6 1.0-5.5 #) [facility] CampusOcrdyprFILLXPFVSV1657-56-56 11:32:00 Test Item Value Reference Range Interpretation Comments Eosinophils # (test code 0.2 See_Comment [A utomated message] The = Eosinophils #) system [employer] generated this result tra nsmitted reference range : <=0.5. The reference r leo was not used to int erpret this result as normal/abnormal . [facility] CampusYztpwicSGPWXGGGAS7163-28-33 11:32:00 Test Item Value Reference Range Interpretation Comments Segs (test code = Segs) 50.7 45.0-75.0 [facility] CampusPtarjpcUULMWPDPBZ4111-09-59 11:32:00 Test Item Value Reference Range Interpretation [...] iron deficiency anemia, and renal disease. CPT: 21312 [facility] CampusUkjeuiaDQAVHEVUUY4608-96-78 11:32:00 Test Item Value Reference Range Interpretation Comments Hct (test code = Hct) 28.1 36.0-48.0 [facility] CampusOirlbfhFTYVIYXMGC5992-24-92 11:32:00 Test Item Value Reference Range Interpretation Comments RBC (test code = RBC) 3.39 4.20-5.40 [facility] CampusCurrwohWYUALOMLMF4374-40-08 11:32:00 Test Item Value Reference Range Interpretation Comments Hgb (test code = Hgb) 8.9 12.0-16.0 [facility] CampusHvnjoosSLFTTVFHTM1395-35-52 11:32:00 Test Item Value Reference Range Interpretation Comments WBC (test code = WBC) 5.1 3.7-10.4 [facility] CampusQfilhqcKATKBYDNGC2160-83-34 11:32:00 Test Item Value Reference Range Interpretation Comments MPV (test code = MPV) 11.3 7.4-10.4 [facility] CampusHwfrgqmRVDONSVTQM1867-28-70 11:32:00 Test Item Value Reference Range Interpretation Comments Platelet (test code = Platelet) 118 133-450 [facility] CampusYrfwdytAOITJXOPQB0257-32-03 11:32:00 Test Item Value Reference Range Interpretation Comments MCHC (test code = MCHC) 31.8 32.0-36.0 [facility] CampusIcxivomHCPWHXDMIP1452-25-26 11:32:00 Test Item Value Reference Range Interpretation Comments RDW (test code = RDW) 18.0 11.5-14.5 [facility] CampusTxmvyjdQVGEIENVSV6177-53-51 11:32:00 Test Item Value Reference Range Interpretation Comments MCV (test code = MCV) 83.0 80.0-98.0 [facility] CampusJnysfuoVPAPSWERIJ8096-06-26 11:32:00 Test Item Value Reference Range Interpretation Comments MCH (test code = MCH) 26.4 pg 27.0-31.0 [facility] CenterEtrwusiWDMZIMLHPI6671-70-23 11:32:00 Test Item Value Reference Range Interpretation Comments C3 Complement (test code = C3 137 23-201 Complement) [facility] CenterPcbdkuzMRRKALDKLD6109-18-94 11:32:00 Test Item Value Reference Range Interpretation Comments HIV. (test code = Negative *NA*(07/30/16 HIV.) 5:32 AM) [facility] CampusYvlwhfsAGGCXLAYKT7529-83-57 11:05:00 Test Item Value Reference Range Interpretation [...] iron deficiency anemia, and renal disease. CPT: 71698 [facility] CenterBngarloAHUADYSVCI3565-04-24 11:05:00 Test Item Value Reference Range Interpretation Comments HIV. (test code = Negative *NA*(07/29/16 HIV.) 5:05 AM) [facility] CenterKajiynlRBZDPVXGDX9127-71-11 11:05:00 Test Item Value Reference Range Interpretation Comments C3 Complement (test code = C3 92 88-201 Complement) [facility] CampusCqzsigdKHBVSWTYVI7264-79-29 11:05:00 Test Item Value Reference Range Interpretation [...] iron deficiency anemia, and renal disease. [facility]: 91400 [facility]IrjauftWDPOKRFVBJ6698-56-88 11:05:00 Test Item Value Reference Range Interpretation Comments HIV. (test code = Negative *NA*(07/29/16 HIV.) 5:05 AM) [facility] CenterHkixtnlLBVFQLYANX0464-45-11 11:05:00 Test Item Value Reference Range Interpretation Comments C3 Complement (test code = C3 92 88-201 Complement) [facility] CampusSqpjuddJMNOVIWYHM9987-90-93 11:05:00 Test Item Value Reference Range Interpretation [...] iron deficiency anemia, and renal disease. CPT: 33129 [facility] CenterGbsbrrlVEODIYWCIO9659-46-97 11:05:00 Test Item Value Reference Range Interpretation Comments HIV. (test code = Negative *NA*(07/29/16 HIV.) 5:05 AM) [facility] CenterOykmmlsRCBBXRBMBA4235-80-64 11:05:00 Test Item Value Reference Range Interpretation Comments C3 Complement (test code = C3 92 88-201 Complement) [facility] CampusZgqwxmxLXVQYUXXYR7039-81-20 11:05:00 Test Item Value Reference Range Interpretation [...] iron deficiency anemia, and renal disease. CPT: 16897 [facility]LjybgehVSTJTYMRVT3866-42-52 11:05:00 Test Item Value Reference Range Interpretation Comments HIV. (test code = Negative *NA*(07/29/16 HIV.) 5:05 AM) [facility] CenterWdpwexdKXFDEAANSD7698-19-14 11:05:00 Test Item Value Reference Range Interpretation Comments C3 Complement (test code = C3 92 88-201 Complement) [facility] CampusQoxehktTUFAMLAWPE3557-47-72 11:05:00 Test Item Value Reference Range Interpretation [...] iron deficiency anemia, and renal disease. CPT: 74798 [facility] CenterOellequNAHUMFPXOT8855-78-42 11:05:00 Test Item Value Reference Range Interpretation Comments HIV. (test code = Negative *NA*(07/29/16 HIV.) 5:05 AM) [facility] CenterNfsxkfnJGUYHKDRPR1139-28-29 11:05:00 Test Item Value Reference Range Interpretation Comments C3 Complement (test code = C3 92 88-201 Complement) [facility]2017-02-07 15:50:00 Test Item Value Reference Range Interpretation Comments eGFR (test code = eGFR) 25 [facility]2017-02-07 15:50:00 Test Item Value Reference Range Interpretation Comments BUN (test code = BUN) 55 7-22 [facility]2017-02-07 15:50:00 Test Item Value Reference Range Interpretation Comments CO2 (test code = CO2) 23 24-32 [facility]2017-02-07 15:50:00 Test Item Value Reference Range Interpretation Comments Chloride Lvl (test code = Chloride Lvl) 109 95-109 [facility]2017-02-07 15:50:00 Test Item Value Reference Range Interpretation Comments Glucose Lvl (test code = Glucose Lvl) 101 70-99 [facility]2017-02-07 15:50:00 Test Item Value Reference Range Interpretation Comments Potassium Lvl (test code = Potassium 4.0 3.5-5.1 Lvl) [facility]2017-02-07 15:50:00 Test Item Value Reference Range Interpretation Comments Sodium Lvl (test code = Sodium Lvl) 141 135-145 [facility]2017-02-07 15:50:00 Test Item Value Reference Range Interpretation Comments AGAP (test code = AGAP) 13.0 10.0-20.0 [facility]2017-02-07 15:50:00 Test Item Value Reference Range Interpretation Comments Calcium Lvl (test code = Calcium Lvl) 7.7 8.5-10.5 [facility]2017-02-07 15:50:00 Test Item Value Reference Range Interpretation Comments Creatinine Lvl (test code = Creatinine 2.49 0.50-1.40 Lvl) [facility]SnonvfaXUDRKKIVPR0733-60-27 15:50:00 Test Item Value Reference Range Interpretation Comments PT (test code = PT) 14.8 s 12.0-14.7 [facility] CampusAdakmthMOVOGGLHQF9105-72-30 15:50:00 Test Item Value Reference Range Interpretation Comments PTT (test code = PTT) 40.8 s 22.9-35.8 [facility] CampusXowejarOUNMWRKPKO7280-39-00 15:50:00 Test Item Value Reference Range Interpretation Comments INR (test code = INR) 1.14 0.85-1.17 [facility]9885[facility]52 15:50:00 Test Item Value Reference Range Interpretation Comments C3 Complement (test code = C3 94 88-201 Complement) [facility]2017-02-07 15:50:00 Test Item Value Reference Range Interpretation Comments eGFR (test code = eGFR) 25 [facility]2017-02-07 15:50:00 Test Item Value Reference Range Interpretation Comments BUN (test code = BUN) 55 7-22 [facility]2017-02-07 15:50:00 Test Item Value Reference Range Interpretation Comments CO2 (test code = CO2) 23 24-32 [facility]2017-02-07 15:50:00 Test Item Value Reference Range Interpretation Comments Chloride Lvl (test code = Chloride Lvl) 109 95-109 [facility]2017-02-07 15:50:00 Test Item Value Reference Range Interpretation Comments Glucose Lvl (test code = Glucose Lvl) 101 70-99 [facility]2017-02-07 15:50:00 Test Item Value Reference Range Interpretation Comments Potassium Lvl (test code = Potassium 4.0 3.5-5.1 Lvl) [facility]2017-02-07 15:50:00 Test Item Value Reference Range Interpretation Comments Sodium Lvl (test code = Sodium Lvl) 141 135-145 [facility]2017-02-07 15:50:00 Test Item Value Reference Range Interpretation Comments AGAP (test code = AGAP) 13.0 10.0-20.0 [facility]2017-02-07 15:50:00 Test Item Value Reference Range Interpretation Comments Calcium Lvl (test code = Calcium Lvl) 7.7 8.5-10.5 [facility]2017-02-07 15:50:00 Test Item Value Reference Range Interpretation Comments Creatinine Lvl (test code = Creatinine 2.49 0.50-1.40 Lvl) [facility] CampusInbpglaZMIDRGCUQV8836-56-45 15:50:00 Test Item Value Reference Range Interpretation Comments PT (test code = PT) 14.8 s 12.0-14.7 [facility] CampusLsdgrlsEOQCUAVDOU1912-50-33 15:50:00 Test Item Value Reference Range Interpretation Comments PTT (test code = PTT) 40.8 s 22.9-35.8 [facility] CampusQpyrgrmXURHKIXDOF8054-72-52 15:50:00 Test Item Value Reference Range Interpretation Comments INR (test code = INR) 1.14 0.85-1.17 [facility] HospitalSyeelinRLNLJIRXDD5000-59-89 15:50:00 Test Item Value Reference Range Interpretation Comments C3 Complement (test code = C3 94 88-201 Complement) [facility]2017-02-07 15:50:00 Test Item Value Reference Range Interpretation Comments eGFR (test code = eGFR) 25 [facility]2017-02-07 15:50:00 Test Item Value Reference Range Interpretation Comments BUN (test code = BUN) 55 7-22 [facility]2017-02-07 15:50:00 Test Item Value Reference Range Interpretation Comments CO2 (test code = CO2) 23 24-32 [facility]2017-02-07 15:50:00 Test Item Value Reference Range Interpretation Comments Chloride Lvl (test code = Chloride Lvl) 109 95-109 [facility]2017-02-07 15:50:00 Test Item Value Reference Range Interpretation Comments Glucose Lvl (test code = Glucose Lvl) 101 70-99 [facility]2017-02-07 15:50:00 Test Item Value Reference Range Interpretation Comments Potassium Lvl (test code = Potassium 4.0 3.5-5.1 Lvl) [facility]2017-02-07 15:50:00 Test Item Value Reference Range Interpretation Comments Sodium Lvl (test code = Sodium Lvl) 141 135-145 [facility]2017-02-07 15:50:00 Test Item Value Reference Range Interpretation Comments AGAP (test code = AGAP) 13.0 10.0-20.0 [facility]2017-02-07 15:50:00 Test Item Value Reference Range Interpretation Comments Calcium Lvl (test code = Calcium Lvl) 7.7 8.5-10.5 [facility]2017-02-07 15:50:00 Test Item Value Reference Range Interpretation Comments Creatinine Lvl (test code = Creatinine 2.49 0.50-1.40 Lvl) [facility] CampusZmyeamcAWUCSFONYL6209-22-72 15:50:00 Test Item Value Reference Range Interpretation Comments PT (test code = PT) 14.8 s 12.0-14.7 [facility] CampusGjmlclkXAUBHPOUGI5197-18-86 15:50:00 Test Item Value Reference Range Interpretation Comments PTT (test code = PTT) 40.8 s 22.9-35.8 [facility] CampusEabhkvkNOCKQGWXBL8540-89-91 15:50:00 Test Item Value Reference Range Interpretation Comments INR (test code = INR) 1.14 0.85-1.17 [facility] HospitalWzoaehjRAZFFTGNQS8709-86-36 15:50:00 Test Item Value Reference Range Interpretation Comments C3 Complement (test code = C3 94 88-201 Complement) [facility]2017-02-07 15:50:00 Test Item Value Reference Range Interpretation Comments eGFR (test code = eGFR) 25 [facility]2017-02-07 15:50:00 Test Item Value Reference Range Interpretation Comments BUN (test code = BUN) 55 7-22 [facility]2017-02-07 15:50:00 Test Item Value Reference Range Interpretation Comments CO2 (test code = CO2) 23 24-32 [facility]2017-02-07 15:50:00 Test Item Value Reference Range Interpretation Comments Chloride Lvl (test code = Chloride Lvl) 109 95-109 [facility]2017-02-07 15:50:00 Test Item Value Reference Range Interpretation Comments Glucose Lvl (test code = Glucose Lvl) 101 70-99 [facility]2017-02-07 15:50:00 Test Item Value Reference Range Interpretation Comments Potassium Lvl (test code = Potassium 4.0 3.5-5.1 Lvl) [facility]2017-02-07 15:50:00 Test Item Value Reference Range Interpretation Comments Sodium Lvl (test code = Sodium Lvl) 141 135-145 [facility]2017-02-07 15:50:00 Test Item Value Reference Range Interpretation Comments AGAP (test code = AGAP) 13.0 10.0-20.0 [facility]2017-02-07 15:50:00 Test Item Value Reference Range Interpretation Comments Calcium Lvl (test code = Calcium Lvl) 7.7 8.5-10.5 [facility]2017-02-07 15:50:00 Test Item Value Reference Range Interpretation Comments Creatinine Lvl (test code = Creatinine 2.49 0.50-1.40 Lvl) [facility] CampusEjdithyLVJCXVOGSF8956-83-96 15:50:00 Test Item Value Reference Range Interpretation Comments PT (test code = PT) 14.8 s 12.0-14.7 [facility] CampusAobzycuEKUYWJACQU9978-47-51 15:50:00 Test Item Value Reference Range Interpretation Comments PTT (test code = PTT) 40.8 s 22.9-35.[facility]TarpaywMQJMZJLWBF0575-46-85 15:50:00 Test Item Value Reference Range Interpretation Comments INR (test code = INR) 1.14 0.85-1.17 [facility] HospitalHjxcjprJXOONOAOIM0755-17-85 15:50:00 Test Item Value Reference Range Interpretation Comments C3 Complement (test code = C3 94 88-201 Complement) [facility]2017-02-07 15:50:00 Test Item Value Reference Range Interpretation Comments eGFR (test code = eGFR) 25 [facility]2017-02-07 15:50:00 Test Item Value Reference Range Interpretation Comments BUN (test code = BUN) 55 7-22 [facility]2017-02-07 15:50:00 Test Item Value Reference Range Interpretation Comments CO2 (test code = CO2) 23 24-32 [facility]2017-02-07 15:50:00 Test Item Value Reference Range Interpretation Comments Chloride Lvl (test code = Chloride Lvl) 109 95-109 [facility]2017-02-07 15:50:00 Test Item Value Reference Range Interpretation Comments Glucose Lvl (test code = Glucose Lvl) 101 70-99 [facility]2017-02-07 15:50:00 Test Item Value Reference Range Interpretation Comments Potassium Lvl (test code = Potassium 4.0 3.5-5.1 Lvl) [facility]2017-02-07 15:50:00 Test Item Value Reference Range Interpretation Comments Sodium Lvl (test code = Sodium Lvl) 141 135-145 [facility]2017-02-07 15:50:00 Test Item Value Reference Range Interpretation Comments AGAP (test code = AGAP) 13.0 10.0-20.0 [facility]2017-02-07 15:50:00 Test Item Value Reference Range Interpretation Comments Calcium Lvl (test code = Calcium Lvl) 7.7 8.5-10.5 [facility]2017-02-07 15:50:00 Test Item Value Reference Range Interpretation Comments Creatinine Lvl (test code = Creatinine 2.49 0.50-1.40 Lvl) [facility] CampusFjbcsqiATHJMRRXRY4463-08-87 15:50:00 Test Item Value Reference Range Interpretation Comments PT (test code = PT) 14.8 s 12.0-14.7 [facility] CampusAyvnwcqDWKWLXXDDM8710-02-17 15:50:00 Test Item Value Reference Range Interpretation Comments PTT (test code = PTT) 40.8 s 22.9-35.8 [facility] CampusFfavswdCBBKMPNBBN5539-08-85 15:50:00 Test Item Value Reference Range Interpretation Comments INR (test code = INR) 1.14 0.85-1.17 [facility] HospitalShvcitjDMIQNXZNES6531-81-78 15:50:00 Test Item Value Reference Range Interpretation Comments C3 Complement (test code = C3 94 88-201 Complement) [facility] CampusOkstkxgKHWLECVMJA1361-35-73 10:35:00 Test Item Value Reference Range Interpretation Comments Lymphocytes # (test code = Lymphocytes 1.7 1.0-5.5 #) [facility] CampusHkilouyAMKYVQOZQW3109-06-33 10:35:00 Test Item Value Reference Range Interpretation Comments Segs-Bands # (test code = Segs-Bands #) 2.7 1.5-8.1 [facility] CampusHzefsrvMSJVDBWQTV7104-51-40 10:35:00 Test Item Value Reference Range Interpretation Comments Eosinophils # (test code 0.1 See_Comment [A utomated message] The = Eosinophils #) system wh h generated this result tra nsmitted reference range : <=0.5. The reference r leo was not used to int erpret this result as normal/abnormal . [facility] CampusWebfhiwZZANIYZEHE3899-21-39 10:35:00 Test Item Value Reference Range Interpretation Comments Monocytes # (test code 0.7 See_Comment [Aut omated message] The = Monocytes #) system which generated this result tra nsmitted reference range : <=0.8. The reference r leo was not used to int erpret this result as normal/abnormal . [facility] CampusQzmlwkoXEIEMMYEOK7129-72-09 10:35:00 Test Item Value Reference Range Interpretation Comments Segs (test code = Segs) 51.3 45.0-75.0 [facility] CampusSblbhngPLIDJXREUD1722-38-83 10:35:00 Test Item Value Reference Range Interpretation Comments Lymphocytes (test code = Lymphocytes) 31.6 20.0-40.0 [facility] CampusPbvtpmiVDOOUJOGLO9524-48-60 10:35:00 Test Item Value Reference Range Interpretation Comments Monocytes (test code = Monocytes) 14.1 2.0-12.0 [facility] CampusNqowmdhHBOUAQNVSU9733-15-63 10:35:00 Test Item Value Reference Range Interpretation Comments Eosinophils (test code = 2.6 See_Comment [A utomated message] The Eosinophils) system which ge nerated this result tra nsmitted reference range : <=4.0. The reference r leo was not used to int erpret this result as normal/abnormal . [facility] CampusSbhzfeaEMRMVWNGQY8181-49-24 10:35:00 Test Item Value Reference Range Interpretation Comments Basophils (test code = 0.4 See_Comment [Aut omated message] The Basophils) system which ge nerated this result tra nsmitted reference range : <=1.0. The reference r leo was not used to int erpret this result as normal/abnormal . [facility] CampusVncqcgpYDDNCUYYIR4718-58-67 10:35:00 Test Item Value Reference Range Interpretation Comments PB Smear Path Peripheral blood smear shows (test code = PB hypochromic normocytic Smear Path) anemia with anisopoikilocytsosis, no increase in schistocytes, slight polychromasia, a few estella cells, moderate thrombocytopenia. Impression: (1) no evidence of microangiopathic hemolysis, (2) RBC morphology is suggestive of anemia of chronic disease or iron deficiency anemia, and renal disease. CPT: 27006 [facility] CampusHqhtijoZPASGPYSPS5304-58-17 10:35:00 Test Item Value Reference Range Interpretation Comments Hct (test code = Hct) 29.3 36.0-48.0 [place] [address]-02-07 10:35:00 Test Item Value Reference Range Interpretation Comments Hgb (test code = Hgb) 9.2 12.0-16.0 [place] [address]-02-07 10:35:00 Test Item Value Reference Range Interpretation Comments RBC (test code = RBC) 3.54 4.20-5.40 [facility] CampusEgrsyubFJNWGSDYJG1750-89-57 10:35:00 Test Item Value Reference Range Interpretation Comments WBC (test code = WBC) 5.3 3.7-10.4 [facility] CampusPscxdsfABCDLLRKLM8257-75-80 10:35:00 Test Item Value Reference Range Interpretation Comments Platelet (test code = Platelet) 87 133-450 [facility] CampusFtkkceeKYNFUIVYZA8705-41-80 10:35:00 Test Item Value Reference Range Interpretation Comments MCHC (test code = MCHC) 31.4 32.0-36.0 [facility] CampusXkwzwhfSZCTFRARAO6506-53-32 10:35:00 Test Item Value Reference Range Interpretation Comments RDW (test code = RDW) 17.9 11.5-14.5 [facility] CampusOohgquvTWYQGDXYVA9641-66-21 10:35:00 Test Item Value Reference Range Interpretation Comments MPV (test code = MPV) 10.9 7.4-10.4 [facility] CampusCtzvczqHURFVCWWYI4474-68-19 10:35:00 Test Item Value Reference Range Interpretation Comments MCH (test code = MCH) 26.0 pg 27.0-31.0 [facility] CampusGnfsgbuFRXPBHIPWH7786-42-77 10:35:00 Test Item Value Reference Range Interpretation Comments MCV (test code = MCV) 82.8 80.0-98.0 [facility] HospitalFnwvlodYWPGVCYFDX3849-66-34 10:35:00 Test Item Value Reference Range Interpretation Comments HIV. (test code = Negative *NA*(07/28/16 HIV.) 4:35 AM) [facility] CampusAnmtkvqHGNUVQZGTF0888-44-40 10:35:00 Test Item Value Reference Range Interpretation Comments Lymphocytes # (test code = Lymphocytes 1.7 1.0-5.5 #) [facility] CampusEnnryvwZWYDZZBVDL9368-25-46 10:35:00 Test Item Value Reference Range Interpretation Comments Segs-Bands # (test code = Segs-Bands #) 2.7 1.5-8.1 [facility] CampusMkvsgjvWFHCINIYRQ8960-73-55 10:35:00 Test Item Value Reference Range Interpretation Comments Eosinophils # (test code 0.1 See_Comment [A utomated message] The = Eosinophils #) system whic h generated this result tra nsmitted reference range : <=0.5. The reference r leo was not used to int erpret this result as normal/abnormal . [facility] CampusNubgvfyMEGHXAXPUV2320-77-90 10:35:00 Test Item Value Reference Range Interpretation Comments Monocytes # (test code 0.7 See_Comment [Aut omated message] The = Monocytes #) system which generated this result tra nsmitted reference range : <=0.8. The reference r leo was not used to int erpret this result as normal/abnormal . [facility] CampusGulnbplNQRUECQAHD9984-22-51 10:35:00 Test Item Value Reference Range Interpretation Comments Segs (test code = Segs) 51.3 45.0-75.0 [facility] CampusFpiteqyYCMDDIEMIK4685-73-12 10:35:00 Test Item Value Reference Range Interpretation Comments Lymphocytes (test code = Lymphocytes) 31.6 20.0-40.0 [facility] CampusTsmqyyjWJETZVPITS2277-32-84 10:35:00 Test Item Value Reference Range Interpretation Comments Monocytes (test code = Monocytes) 14.1 2.0-12.0 [facility] CampusBkmtuvnYCSTXNXQSM5485-40-35 10:35:00 Test Item Value Reference Range Interpretation Comments Eosinophils (test code = 2.6 See_Comment [A utomated message] The Eosinophils) system which ge nerated this result tra nsmitted reference range : <=4.0. The reference r leo was not used to int erpret this result as normal/abnormal . [facility] CampusBucgxprFWFRQICBQK3606-60-07 10:35:00 Test Item Value Reference Range Interpretation Comments Basophils (test code = 0.4 See_Comment [Aut omated message] The Basophils) system which ge nerated this result tra nsmitted reference range : <=1.0. The reference r leo was not used to int erpret this result as normal/abnormal . [facility] CampusKatentxLAOWYOYGYB7045-24-39 10:35:00 Test Item Value Reference Range Interpretation Comments PB Smear Path Peripheral blood smear shows (test code = PB hypochromic normocytic Smear Path) anemia with anisopoikilocytsosis, no increase in schistocytes, slight polychromasia, a few estella cells, moderate thrombocytopenia. Impression: (1) no evidence of microangiopathic hemolysis, (2) RBC morphology is suggestive of anemia of chronic disease or iron deficiency anemia, and renal disease. CPT: 52412 [facility] CampusBusupvjZWPBJSPPKE3526-12-14 10:35:00 Test Item Value Reference Range Interpretation Comments Hct (test code = Hct) 29.3 36.0-48.0 [facility] CampusSflhgezOQEFAWQTEK2627-11-94 10:35:00 Test Item Value Reference Range Interpretation Comments Hgb (test code = Hgb) 9.2 12.0-16.0 [facility] CampusVokpfklCJUAIBRWJT2637-31-08 10:35:00 Test Item Value Reference Range Interpretation Comments RBC (test code = RBC) 3.54 4.20-5.40 [facility] CampusCdaaxloHFJJIAJNOJ9346-59-92 10:35:00 Test Item Value Reference Range Interpretation Comments WBC (test code = WBC) 5.3 3.7-10.4 [facility] CampusOfpupjkBJBGTCCGHE8152-38-75 10:35:00 Test Item Value Reference Range Interpretation Comments Platelet (test code = Platelet) 87 133-450 [facility] CampusSucwoyjSIJIMQGIIK6707-38-81 10:35:00 Test Item Value Reference Range Interpretation Comments MCHC (test code = MCHC) 31.4 32.0-36.0 [facility] CampusUlyyaeaYIWAPEIRDR1804-56-78 10:35:00 Test Item Value Reference Range Interpretation Comments RDW (test code = RDW) 17.9 11.5-14.5 [facility] CampusQtsreezQBGCFWKKHN6766-31-59 10:35:00 Test Item Value Reference Range Interpretation Comments MPV (test code = MPV) 10.9 7.4-10.4 [facility] CampusDxopcgsSAUWMKCYGC1315-56-20 10:35:00 Test Item Value Reference Range Interpretation Comments MCH (test code = MCH) 26.0 pg 27.0-31.0 [facility] CampusOiyhmamCQWNJIRUSF9299-40-55 10:35:00 Test Item Value Reference Range Interpretation Comments MCV (test code = MCV) 82.8 80.0-98.0 [facility] HospitalBtdewlgNPXKOUYYLE2200-85-71 10:35:00 Test Item Value Reference Range Interpretation Comments HIV. (test code = Negative *NA*(07/28/16 HIV.) 4:35 AM) [facility] CampusHbfnyotVRIAKZBHJX2306-79-72 10:35:00 Test Item Value Reference Range Interpretation Comments Lymphocytes # (test code = Lymphocytes 1.7 1.0-5.5 #) [facility] CampusCaoxayhJVBBVLLSSW4395-77-16 10:35:00 Test Item Value Reference Range Interpretation Comments Segs-Bands # (test code = Segs-Bands #) 2.7 1.5-8.1 [facility] CampusGwtyfrvTZRXXMQGVW8230-80-91 10:35:00 Test Item Value Reference Range Interpretation Comments Eosinophils # (test code 0.1 See_Comment [A utomated message] The = Eosinophils #) system whic h generated this result tra nsmitted reference range : <=0.5. The reference r leo was not used to int erpret this result as normal/abnormal . [facility] CampusFjlvwiqNSDJFWKJDX8176-87-41 10:35:00 Test Item Value Reference Range Interpretation Comments Monocytes # (test code 0.7 See_Comment [Aut omated message] The = Monocytes #) system which generated this result tra nsmitted reference range : <=0.8. The reference r leo was not used to int erpret this result as normal/abnormal . [facility] CampusEiqlknyATRZUMNJKH2713-58-75 10:35:00 Test Item Value Reference Range Interpretation Comments Segs (test code = Segs) 51.3 45.0-75.0 [facility] CampusCshcdfjJXUDVYEVDJ6598-12-86 10:35:00 Test Item Value Reference Range Interpretation Comments Lymphocytes (test code = Lymphocytes) 31.6 20.0-40.0 [facility] CampusFiymlueIVDZSZOEKS7583-79-42 10:35:00 Test Item Value Reference Range Interpretation Comments Monocytes (test code = Monocytes) 14.1 2.0-12.0 [facility] CampusMcqlrtdDFVNTMXNGD0913-16-39 10:35:00 Test Item Value Reference Range Interpretation Comments Eosinophils (test code = 2.6 See_Comment [A utomated message] The Eosinophils) system which ge nerated this result tra nsmitted reference range : <=4.0. The reference r leo was not used to int erpret this result as normal/abnormal . [facility] CampusKcmalnxFQUVJDVJWM3169-03-98 10:35:00 Test Item Value Reference Range Interpretation Comments Basophils (test code = 0.4 See_Comment [Aut omated message] The Basophils) system which ge nerated this result tra nsmitted reference range : <=1.0. The reference r leo was not used to int erpret this result as normal/abnormal . [facility] CampusIjhxmsqKAARDWRRDI9862-24-64 10:35:00 Test Item Value Reference Range Interpretation Comments PB Smear Path Peripheral blood smear shows (test code = PB hypochromic normocytic Smear Path) anemia with anisopoikilocytsosis, no increase in schistocytes, slight polychromasia, a few estella cells, moderate thrombocytopenia. Impression: (1) no evidence of microangiopathic hemolysis, (2) RBC morphology is suggestive of anemia of chronic disease or iron deficiency anemia, and renal disease. CPT: 65056 [facility] CampusAvmelhpLZWOUCBTEU1116-66-86 10:35:00 Test Item Value Reference Range Interpretation Comments Hct (test code = Hct) 29.3 36.0-48.0 [facility] CampusWeiqzstQSCCCJRSHX1033-90-81 10:35:00 Test Item Value Reference Range Interpretation Comments Hgb (test code = Hgb) 9.2 12.0-16.0 [facility] CampusQgtlmpcTOYTIUFPVE3361-48-93 10:35:00 Test Item Value Reference Range Interpretation Comments RBC (test code = RBC) 3.54 4.20-5.40 [facility] CampusBrqomfhIHWSZEASSZ9856-83-47 10:35:00 Test Item Value Reference Range Interpretation Comments WBC (test code = WBC) 5.3 3.7-10.4 [facility] CampusFgpbekfDQTSYKVZUT4666-71-67 10:35:00 Test Item Value Reference Range Interpretation Comments Platelet (test code = Platelet) 87 133-450 [facility] CampusAvfsdpvAEKASSFVQM3226-91-45 10:35:00 Test Item Value Reference Range Interpretation Comments MCHC (test code = MCHC) 31.4 32.0-36.0 [facility] CampusUlzabwcMLLDQZOJOD8728-19-11 10:35:00 Test Item Value Reference Range Interpretation Comments RDW (test code = RDW) 17.9 11.5-14.5 [facility] CampusNrtnltpXKGHLJUYLQ9156-06-18 10:35:00 Test Item Value Reference Range Interpretation Comments MPV (test code = MPV) 10.9 7.4-10.4 [facility] CampusAhfmgnsIQXYKWCLGM0853-67-74 10:35:00 Test Item Value Reference Range Interpretation Comments MCH (test code = MCH) 26.0 pg 27.0-31.0 [facility] CampusDprfmggNGGUYHDXAA6190-20-32 10:35:00 Test Item Value Reference Range Interpretation Comments MCV (test code = MCV) 82.8 80.0-98.0 [facility]FslliuoFKGFODZTFS4415-92-41 10:35:00 Test Item Value Reference Range Interpretation Comments HIV. (test code = Negative *NA*(07/28/16 HIV.) 4:35 AM) [facility] CampusIfaychdCNLMGFCOPT2017-22-39 10:35:00 Test Item Value Reference Range Interpretation Comments Lymphocytes # (test code = Lymphocytes 1.7 1.0-5.5 #) [facility] [facility]ne[facility]CVDSREPTNS1391-05-24 10:35:00 Test Item Value Reference Range Interpretation Comments Segs-Bands # (test code = Segs-Bands #) 2.7 1.5-8.1 [facility]DtnfrbzHGNOOXLIEL3644-19-62 10:35:00 Test Item Value Reference Range Interpretation Comments Eosinophils # (test code 0.1 See_Comment [A utomated message] The = Eosinophils #) system whic h generated this result tra nsmitted reference range : <=0.5. The reference r leo was not used to int erpret this result as normal/abnormal . [facility] CampusJlzretsXFCVGFGMHH4493-51-62 10:35:00 Test Item Value Reference Range Interpretation Comments Monocytes # (test code 0.7 See_Comment [Aut omated message] The = Monocytes #) system which generated this result tra nsmitted reference range : <=0.8. The reference r leo was not used to int erpret this result as normal/abnormal . [facility] CampusVwuwktbZKEYMXZQZT7796-43-87 10:35:00 Test Item Value Reference Range Interpretation Comments Segs (test code = Segs) 51.3 45.0-75.0 [facility] CampusSljhhpdPQUPCUEGRP8231-41-82 10:35:00 Test Item Value Reference Range Interpretation Comments Lymphocytes (test code = Lymphocytes) 31.6 20.0-40.0 [facility] CampusDlwqfiwWCSKSNBEBB7678-15-15 10:35:00 Test Item Value Reference Range Interpretation Comments Monocytes (test code = Monocytes) 14.1 2.0-12.0 [facility] CampusIvekrvzWXTHFCCIFJ2322-81-87 10:35:00 Test Item Value Reference Range Interpretation Comments Eosinophils (test code = 2.6 See_Comment [A utomated message] The Eosinophils) system which ge nerated this result tra nsmitted reference range : <=4.0. The reference r leo was not used to int erpret this result as normal/abnormal . [facility] CampusOyhtlryQNSMDZALFV3131-32-26 10:35:00 Test Item Value Reference Range Interpretation Comments Basophils (test code = 0.4 See_Comment [Aut omated message] The Basophils) system which ge nerated this result tra nsmitted reference range : <=1.0. The reference r leo was not used to int erpret this result as normal/abnormal . [facility] CampusOzrzgdkIIRKPUBEXW6795-07-82 10:35:00 Test Item Value Reference Range Interpretation Comments PB Smear Path Peripheral blood smear shows (test code = PB hypochromic normocytic Smear Path) anemia with anisopoikilocytsosis, no increase in schistocytes, slight polychromasia, a few estella cells, moderate thrombocytopenia. Impression: (1) no evidence of microangiopathic hemolysis, (2) RBC morphology is suggestive of anemia of chronic disease or iron deficiency anemia, and renal disease. CPT: 90320 [facility] CampusGgegcubVUTFZJAGOL4256-68-08 10:35:00 Test Item Value Reference Range Interpretation Comments Hct (test code = Hct) 29.3 36.0-48.0 [facility] CampusTeuunzuMUNQMYITID4515-71-87 10:35:00 Test Item Value Reference Range Interpretation Comments Hgb (test code = Hgb) 9.2 12.0-16.0 [facility] CampusVbpylvhISNLIUWSXS0956-43-99 10:35:00 Test Item Value Reference Range Interpretation Comments RBC (test code = RBC) 3.54 4.20-5.40 [facility] CampusSfzueefIZWASDREKB4445-75-84 10:35:00 Test Item Value Reference Range Interpretation Comments WBC (test code = WBC) 5.3 3.7-10.4 [facility] CampusRhslqqvXAJAKJXHQC1779-50-36 10:35:00 Test Item Value Reference Range Interpretation Comments Platelet (test code = Platelet) 87 133-450 [facility] CampusXviopjxERXSLSULRR6912-59-35 10:35:00 Test Item Value Reference Range Interpretation Comments MCHC (test code = MCHC) 31.4 32.0-36.0 [facility] CampusCvmfqguFHRAHNASEZ9164-79-87 10:35:00 Test Item Value Reference Range Interpretation Comments RDW (test code = RDW) 17.9 11.5-14.5 [facility] CampusEqnuuxbPLWJAFICWT0645-15-87 10:35:00 Test Item Value Reference Range Interpretation Comments MPV (test code = MPV) 10.9 7.4-10.4 [facility] CampusIleeqamJTPPGCZKVB9236-01-86 10:35:00 Test Item Value Reference Range Interpretation Comments MCH (test code = MCH) 26.0 pg 27.0-31.0 [facility] CampusBicfbwnDQAUZUSTOT3281-41-70 10:35:00 Test Item Value Reference Range Interpretation Comments MCV (test code = MCV) 82.8 80.0-98.0 [facility]ItfoyezCGYXTVJNAF2758-03-92 10:35:00 Test Item Value Reference Range Interpretation Comments HIV. (test code = Negative *NA*(07/28/16 HIV.) 4:35 AM) [facility] CampusHlwykoqSWWXCNYTPG4318-13-85 10:35:00 Test Item Value Reference Range Interpretation Comments Lymphocytes # (test code = Lymphocytes 1.7 1.0-5.5 #) [facility] CampusFjuozbcCQHJLOJRQJ9295-95-39 10:35:00 Test Item Value Reference Range Interpretation Comments Segs-Bands # (test code = Segs-Bands #) 2.7 1.5-8.1 [facility] CampusMwpxfhiBSRSKUZPBR7168-35-52 10:35:00 Test Item Value Reference Range Interpretation Comments Eosinophils # (test code 0.1 See_Comment [A utomated message] The = Eosinophils #) system whic h generated this result tra nsmitted reference range : <=0.5. The reference r leo was not used to int erpret this result as normal/abnormal . [facility] CampusCnsaecqVFHQXKDXBQ0634-38-81 10:35:00 Test Item Value Reference Range Interpretation Comments Monocytes # (test code 0.7 See_Comment [Aut omated message] The = Monocytes #) system which generated this result tra nsmitted reference range : <=0.8. The reference r leo was not used to int erpret this result as normal/abnormal . [facility] CampusAcvobosTHHQMGQYVD3374-55-23 10:35:00 Test Item Value Reference Range Interpretation Comments Segs (test code = Segs) 51.3 45.0-75.0 [facility] CampusHmnzdifTRXXRHCXLU9285-92-63 10:35:00 Test Item Value Reference Range Interpretation Comments Lymphocytes (test code = Lymphocytes) 31.6 20.0-40.0 [facility] CampusZiyltbjAZWQNQJHSI3909-26-60 10:35:00 Test Item Value Reference Range Interpretation Comments Monocytes (test code = Monocytes) 14.1 2.0-12.0 [facility] CampusXikcpebEGUGQROLYG7085-35-51 10:35:00 Test Item Value Reference Range Interpretation Comments Eosinophils (test code = 2.6 See_Comment [A utomated message] The Eosinophils) system which ge nerated this result tra nsmitted reference range : <=4.0. The reference r leo was not used to int erpret this result as normal/abnormal . [facility] CampusMvdbkurCKNEPFKMPQ4402-82-80 10:35:00 Test Item Value Reference Range Interpretation Comments Basophils (test code = 0.4 See_Comment [Aut omated message] The Basophils) system which ge nerated this result tra nsmitted reference range : <=1.0. The reference r leo was not used to int erpret this result as normal/abnormal . [facility] CampusGbdhewiCHXEJIPNUV1730-10-85 10:35:00 Test Item Value Reference Range Interpretation Comments PB Smear Path Peripheral blood smear shows (test code = PB hypochromic normocytic Smear Path) anemia with anisopoikilocytsosis, no increase in schistocytes, slight polychromasia, a few estella cells, moderate thrombocytopenia. Impression: (1) no evidence of microangiopathic hemolysis, (2) RBC morphology is suggestive of anemia of chronic disease or iron deficiency anemia, and renal disease. CPT: 35094 [facility] CampusZcnrhcuWPSVCDQNAD5685-29-85 10:35:00 Test Item Value Reference Range Interpretation Comments Hct (test code = Hct) 29.3 36.0-48.0 [facility] CampusTicmhhnVDKKZMQEIL2349-52-96 10:35:00 Test Item Value Reference Range Interpretation Comments Hgb (test code = Hgb) 9.2 12.0-16.0 [facility] CampusAxfvcxdPTATUNPPDM9533-83-65 10:35:00 Test Item Value Reference Range Interpretation Comments RBC (test code = RBC) 3.54 4.20-5.40 [facility] CampusXtlqvznUNKKELGDBC8010-81-83 10:35:00 Test Item Value Reference Range Interpretation Comments WBC (test code = WBC) 5.3 3.7-10.4 [facility] CampusTujavlzTFKVEKLULF5891-17-70 10:35:00 Test Item Value Reference Range Interpretation Comments Platelet (test code = Platelet) 87 133-450 [facility] CampusRcflncqQYVMFZGTWK4934-98-01 10:35:00 Test Item Value Reference Range Interpretation Comments MCHC (test code = MCHC) 31.4 32.0-36.0 [facility] CampusAkeyszwSGFLREQKLQ9400-61-75 10:35:00 Test Item Value Reference Range Interpretation Comments RDW (test code = RDW) 17.9 11.5-14.5 [facility] CampusHfyqrihTFPPJZOTAQ7098-88-34 10:35:00 Test Item Value Reference Range Interpretation Comments MPV (test code = MPV) 10.9 7.4-10.4 [facility] CampusHdnoqyoHNNLMXCFHQ3470-27-41 10:35:00 Test Item Value Reference Range Interpretation Comments MCH (test code = MCH) 26.0 pg 27.0-31.0 [facility] CampusJnixosdHOJYKURHWE8327-38-50 10:35:00 Test Item Value Reference Range Interpretation Comments MCV (test code = MCV) 82.8 80.0-98.0 [facility] HospitalTygmsgcNZHQJSGFZM3877-68-21 10:35:00 Test Item Value Reference Range Interpretation Comments HIV. (test code = Negative *NA*(07/28/16 HIV.) 4:35 AM) [facility]IASC[facility]ITALMWBIEMO0492-53-83 10:22:00 Test Item Value Reference Range Interpretation Comments Total CK (test code = Total CK) 190 12-191 [facility]2017-02-06 10:22:00 Test Item Value Reference Range Interpretation Comments Calcium Lvl (test code = Calcium Lvl) 7.8 8.5-10.5 [facility]2017-02-06 10:22:00 Test Item Value Reference Range Interpretation Comments CO2 (test code = CO2) 21 24-32 [facility]2017-02-06 10:22:00 Test Item Value Reference Range Interpretation Comments Sodium Lvl (test code = Sodium Lvl) 140 135-145 [facility]2017-02-06 10:22:00 Test Item Value Reference Range Interpretation Comments Potassium Lvl (test code = Potassium 3.8 3.5-5.1 Lvl) [facility]2017-02-06 10:22:00 Test Item Value Reference Range Interpretation Comments Chloride Lvl (test code = Chloride Lvl) 106 95-109 [facility]2017-02-06 10:22:00 Test Item Value Reference Range Interpretation Comments Bili Total (test code = Bili Total) 0.4 0.2-1.3 [facility]2017-02-06 10:22:00 Test Item Value Reference Range Interpretation Comments Alk Phos (test code = Alk Phos) 74 39-136 [facility]2017-02-06 10:22:00 Test Item Value Reference Range Interpretation Comments eGFR (test code = eGFR) 19 [facility]2017-02-06 10:22:00 Test Item Value Reference Range Interpretation Comments Total Protein (test code = Total 5.2 6.4-8.4 Protein) [facility]2017-02-06 10:22:00 Test Item Value Reference Range Interpretation Comments ALT (test code = ALT) 822 See_Comment [Auto mated message] The system which ge nerated this result transmit rohit reference range : <=65. The reference range was not used to interpr et this result as reji l/abnormal. [facility]2017-02-06 10:22:00 Test Item Value Reference Range Interpretation Comments AST (test code = AST) 205 See_Comment [Auto mated message] The system which ge nerated this result transmit rohit reference range : <=37. The reference range was not used to interpr et this result as reji l/abnormal. [facility]2017-02-06 10:22:00 Test Item Value Reference Range Interpretation Comments Albumin Lvl (test code = Albumin Lvl) 1.8 3.5-5.0 [facility]2017-02-06 10:22:00 Test Item Value Reference Range Interpretation Comments BUN (test code = BUN) 54 7-22 [facility]2017-02-06 10:22:00 Test Item Value Reference Range Interpretation Comments Glucose Lvl (test code = Glucose Lvl) 143 70-99 [facility]2017-02-06 10:22:00 Test Item Value Reference Range Interpretation Comments Creatinine Lvl (test code = Creatinine 3.11 0.50-1.40 Lvl) [facility]2017-02-06 10:22:00 Test Item Value Reference Range Interpretation Comments B/C Ratio (test code = B/C Ratio) 17 6-25 [facility]2017-02-06 10:22:00 Test Item Value Reference Range Interpretation Comments AGAP (test code = AGAP) 16.8 10.0-20.0 [facility]2017-02-06 10:22:00 Test Item Value Reference Range Interpretation Comments Globulin (test code = Globulin) 3.4 2.7-4.2 [facility]2017-02-06 10:22:00 Test Item Value Reference Range Interpretation Comments A/G Ratio (test code = A/G Ratio) 0.5 0.7-1.6 [facility]2017-02-06 10:22:00 Test Item Value Reference Range Interpretation Comments Magnesium Lvl (test code = Magnesium 2.0 1.8-2.4 Lvl) [facility]2017-02-06 10:22:00 Test Item Value Reference Range Interpretation Comments Phosphorus (test code = Phosphorus) 3.7 2.5-4.5 [facility] CampusOprlrmqSXDUONXUPC0649-80-47 10:22:00 Test Item Value Reference Range Interpretation Comments RDW (test code = RDW) 17.7 11.5-14.5 [facility] CampusOkunsxzHKPIWOTNYE3894-08-62 10:22:00 Test Item Value Reference Range Interpretation Comments MCHC (test code = MCHC) 32.9 32.0-36.0 [facility] CampusYvlpcwcAOWHUHESHZ7670-56-47 10:22:00 Test Item Value Reference Range Interpretation Comments Hct (test code = Hct) 25.4 36.0-48.0 [facility] CampusHgluroxGGNFHMBQCN0392-57-56 10:22:00 Test Item Value Reference Range Interpretation Comments MCH (test code = MCH) 26.4 pg 27.0-31.0 [facility] CampusDiccylfSIJFVSLDYJ2453-06-65 10:22:00 Test Item Value Reference Range Interpretation Comments MCV (test code = MCV) 80.3 80.0-98.0 [facility] CampusDdryenbMNIEJTLLCU5474-82-90 10:22:00 Test Item Value Reference Range Interpretation Comments MPV (test code = MPV) 11.4 7.4-10.4 [facility] CampusFdvaadbAFNNVOQASY0958-33-47 10:22:00 Test Item Value Reference Range Interpretation Comments Platelet (test code = Platelet) 74 133-450 [facility] CampusZszobfyKOITSBURPB9358-32-03 10:22:00 Test Item Value Reference Range Interpretation Comments RBC (test code = RBC) 3.16 4.20-5.40 [facility] CampusOhqstrnJCVSMUOHAM2261-83-15 10:22:00 Test Item Value Reference Range Interpretation Comments WBC (test code = WBC) 5.3 3.7-10.4 [facility] CampusWzrrbhsWWTUDZSLVA5357-69-05 10:22:00 Test Item Value Reference Range Interpretation Comments Hgb (test code = Hgb) 8.4 12.0-16.0 [facility] CampusHvasvlsEWDDRPPZGH0802-72-63 10:22:00 Test Item Value Reference Range Interpretation Comments Monocytes (test code = Monocytes) 14.5 2.0-12.0 [facility] CampusNwjwhrzOZOIHDFQPJ3345-02-26 10:22:00 Test Item Value Reference Range Interpretation Comments Lymphocytes (test code = Lymphocytes) 29.8 20.0-40.0 [facility] CampusJlgusdgNFTDRSUOTV4700-63-81 10:22:00 Test Item Value Reference Range Interpretation Comments Eosinophils # (test code 0.1 See_Comment [A utomated message] The = Eosinophils #) system whic h generated this result tra nsmitted reference range : <=0.5. The reference r leo was not used to int erpret this result as normal/abnormal . [facility] CampusWsqvspmYHAFNOQWEC0110-66-46 10:22:00 Test Item Value Reference Range Interpretation Comments Monocytes # (test code 0.8 See_Comment [Aut omated message] The = Monocytes #) system which generated this result tra nsmitted reference range : <=0.8. The reference r leo was not used to int erpret this result as normal/abnormal . [facility] HospitalEqygdumLNDWIIJCUA5959-83-44 10:22:00 Test Item Value Reference Range Interpretation Comments Segs-Bands # (test code = Segs-Bands #) 2.9 1.5-8.1 [facility] HospitalStzkjtmFIQGCPLRKS7750-82-70 10:22:00 Test Item Value Reference Range Interpretation Comments Lymphocytes # (test code = Lymphocytes 1.6 1.0-5.5 #) [facility] CampusFmwtxknMDHIOPWMXL0837-64-84 10:22:00 Test Item Value Reference Range Interpretation Comments Basophils (test code = 0.4 See_Comment [Aut omated message] The Basophils) system which ge nerated this result tra nsmitted reference range : <=1.0. The reference r leo was not used to int erpret this result as normal/abnormal . [facility] CampusEwddunpJHLFUHSLGX5647-29-80 10:22:00 Test Item Value Reference Range Interpretation Comments Eosinophils (test code = 1.2 See_Comment [A utomated message] The Eosinophils) system which ge nerated this result tra nsmitted reference range : <=4.0. The reference r leo was not used to int erpret this result as normal/abnormal . [facility] HospitalPobzwoiTEWNRXMIDW9188-11-66 10:22:00 Test Item Value Reference Range Interpretation Comments Segs (test code = Segs) 54.1 45.0-75.0 [facility] HospitalSPECIAL SKWIEPSAV8440-36-16 10:22:00 Test Item Value Reference Range Interpretation Comments Hgb A1C (test code = Hgb A1C) 8.9 [facility] HospitalCARDIAC OROALQP9483-08-61 10:22:00 Test Item Value Reference Range Interpretation Comments Total CK (test code = Total CK) 190 12-191 [facility] HospitalCHEM JFODQ2244-12-05 10:22:00 Test Item Value Reference Range Interpretation Comments Calcium Lvl (test code = Calcium Lvl) 7.8 8.5-10.5 [facility] HospitalCHEM WAKZG8362-43-70 10:22:00 Test Item Value Reference Range Interpretation Comments CO2 (test code = CO2) 21 24-32 [facility]2017-02-06 10:22:00 Test Item Value Reference Range Interpretation Comments Sodium Lvl (test code = Sodium Lvl) 140 135-145 [facility]2017-02-06 10:22:00 Test Item Value Reference Range Interpretation Comments Potassium Lvl (test code = Potassium 3.8 3.5-5.1 Lvl) [facility]2017-02-06 10:22:00 Test Item Value Reference Range Interpretation Comments Chloride Lvl (test code = Chloride Lvl) 106 95-109 [facility]2017-02-06 10:22:00 Test Item Value Reference Range Interpretation Comments Bili Total (test code = Bili Total) 0.4 0.2-1.3 [facility]2017-02-06 10:22:00 Test Item Value Reference Range Interpretation Comments Alk Phos (test code = Alk Phos) 74 39-136 [facility]2017-02-06 10:22:00 Test Item Value Reference Range Interpretation Comments eGFR (test code = eGFR) 19 [facility]2017-02-06 10:22:00 Test Item Value Reference Range Interpretation Comments Total Protein (test code = Total 5.2 6.4-8.4 Protein) [facility]2017-02-06 10:22:00 Test Item Value Reference Range Interpretation Comments ALT (test code = ALT) 822 See_Comment [Auto mated message] The system which ge nerated this result transmit rohit reference range : <=65. The reference range was not used to interpr et this result as reji l/abnormal. [facility]2017-02-06 10:22:00 Test Item Value Reference Range Interpretation Comments AST (test code = AST) 205 See_Comment [Auto mated message] The system which ge nerated this result transmit rohit reference range : <=37. The reference range was not used to interpr et this result as reji l/abnormal. [facility]2017-02-06 10:22:00 Test Item Value Reference Range Interpretation Comments Albumin Lvl (test code = Albumin Lvl) 1.8 3.5-5.0 [facility]2017-02-06 10:22:00 Test Item Value Reference Range Interpretation Comments BUN (test code = BUN) 54 7-22 [facility]2017-02-06 10:22:00 Test Item Value Reference Range Interpretation Comments Glucose Lvl (test code = Glucose Lvl) 143 70-99 [facility]2017-02-06 10:22:00 Test Item Value Reference Range Interpretation Comments Creatinine Lvl (test code = Creatinine 3.11 0.50-1.40 Lvl) [facility]2017-02-06 10:22:00 Test Item Value Reference Range Interpretation Comments B/C Ratio (test code = B/C Ratio) 17 6-25 [facility]2017-02-06 10:22:00 Test Item Value Reference Range Interpretation Comments AGAP (test code = AGAP) 16.8 10.0-20.0 [facility]2017-02-06 10:22:00 Test Item Value Reference Range Interpretation Comments Globulin (test code = Globulin) 3.4 2.7-4.2 [facility]2017-02-06 10:22:00 Test Item Value Reference Range Interpretation Comments A/G Ratio (test code = A/G Ratio) 0.5 0.7-1.6 [facility]2017-02-06 10:22:00 Test Item Value Reference Range Interpretation Comments Magnesium Lvl (test code = Magnesium 2.0 1.8-2.4 Lvl) [facility]2017-02-06 10:22:00 Test Item Value Reference Range Interpretation Comments Phosphorus (test code = Phosphorus) 3.7 2.5-4.5 [facility] CampusWcrnbpwRXJOPGBZUS4536-13-85 10:22:00 Test Item Value Reference Range Interpretation Comments RDW (test code = RDW) 17.7 11.5-14.5 [facility] CampusPhygzpkEKKDHQVNWO1486-67-38 10:22:00 Test Item Value Reference Range Interpretation Comments MCHC (test code = MCHC) 32.9 32.0-36.0 [facility] CampusErekuszEECGPPUJUX8097-35-61 10:22:00 Test Item Value Reference Range Interpretation Comments Hct (test code = Hct) 25.4 36.0-48.0 [facility] CampusHryrjhiTKXSUWYPVH0845-16-06 10:22:00 Test Item Value Reference Range Interpretation Comments MCH (test code = MCH) 26.4 pg 27.0-31.0 [facility] CampusNwbdihjQYVISCNTJU0208-61-05 10:22:00 Test Item Value Reference Range Interpretation Comments MCV (test code = MCV) 80.3 80.0-98.0 [facility] CampusKiczjcgQPYDKGBOXR3426-60-13 10:22:00 Test Item Value Reference Range Interpretation Comments MPV (test code = MPV) 11.4 7.4-10.4 [facility] CampusAksrbopPBGQLXKLDM0098-73-08 10:22:00 Test Item Value Reference Range Interpretation Comments Platelet (test code = Platelet) 74 133-450 [facility] CampusJegqnqsTUWQAYTLGB4871-95-54 10:22:00 Test Item Value Reference Range Interpretation Comments RBC (test code = RBC) 3.16 4.20-5.40 [facility] CampusQcraothQYETOVIBTG7415-05-43 10:22:00 Test Item Value Reference Range Interpretation Comments WBC (test code = WBC) 5.3 3.7-10.4 [facility] CampusRqeoxhyREZWOVBSNA6682-63-28 10:22:00 Test Item Value Reference Range Interpretation Comments Hgb (test code = Hgb) 8.4 12.0-16.0 [facility] CampusKnczzszVIJNHHIIGD0324-81-20 10:22:00 Test Item Value Reference Range Interpretation Comments Monocytes (test code = Monocytes) 14.5 2.0-12.0 [facility] CampusJvndueyJSCBIQUIKS5397-92-14 10:22:00 Test Item Value Reference Range Interpretation Comments Lymphocytes (test code = Lymphocytes) 29.8 20.0-40.0 [facility] CampusTtrywvpFNECMZTSXY6902-93-64 10:22:00 Test Item Value Reference Range Interpretation Comments Eosinophils # (test code 0.1 See_Comment [A utomated message] The = Eosinophils #) system whic h generated this result tra nsmitted reference range : <=0.5. The reference r leo was not used to int erpret this result as normal/abnormal . [facility] CampusUqwbthxDFQYBMQSUJ4553-45-18 10:22:00 Test Item Value Reference Range Interpretation Comments Monocytes # (test code 0.8 See_Comment [Aut omated message] The = Monocytes #) system which generated this result tra nsmitted reference range : <=0.8. The reference r leo was not used to int erpret this result as normal/abnormal . [facility] HospitalSokjshiQTTTJSLTRV8729-28-08 10:22:00 Test Item Value Reference Range Interpretation Comments Segs-Bands # (test code = Segs-Bands #) 2.9 1.5-8.[address] [facility] HospitalNfqdhlbWBHLPQQYJD1018-02-14 10:22:00 Test Item Value Reference Range Interpretation Comments Lymphocytes # (test code = Lymphocytes 1.6 1.0-5.5 #) [facility] HospitalYrkzpjiZOCNZMBIWF6934-05-47 10:22:00 Test Item Value Reference Range Interpretation Comments Basophils (test code = 0.4 See_Comment [Aut omated message] The Basophils) system which ge nerated this result tra nsmitted reference range : <=1.0. The reference r leo was not used to int erpret this result as normal/abnormal . [facility] CampusAchovmxHNGGIDNDKM7787-14-10 10:22:00 Test Item Value Reference Range Interpretation Comments Eosinophils (test code = 1.2 See_Comment [A utomated message] The Eosinophils) system which ge nerated this result tra nsmitted reference range : <=4.0. The reference r leo was not used to int erpret this result as normal/abnormal . [facility] HospitalSruhvtzZLPXFNPYGE9042-06-36 10:22:00 Test Item Value Reference Range Interpretation Comments Segs (test code = Segs) 54.1 45.0-75.0 [facility] [id number] 10:22:00 Test Item Value Reference Range Interpretation Comments Hgb A1C (test code = Hgb A1C) 8.9 [facility] [id number] 10:22:00 Test Item Value Reference Range Interpretation Comments Total CK (test code = Total CK) 190 12-191 [facility]CHEM [id number] 10:22:00 Test Item Value Reference Range Interpretation Comments Calcium Lvl (test code = Calcium Lvl) 7.8 8.5-10.5 [facility]CHE[facility] [id number] 10:22:00 Test Item Value Reference Range Interpretation Comments CO2 (test code = CO2) 21 24-32 [facility] HospitalSolarNOW [id number] 10:22:00 Test Item Value Reference Range Interpretation Comments Sodium Lvl (test code = Sodium Lvl) 140 135-145 [facility] [id number] 10:22:00 Test Item Value Reference Range Interpretation Comments Potassium Lvl (test code = Potassium 3.8 3.5-5.1 Lvl) [facility]2017-02-06 10:22:00 Test Item Value Reference Range Interpretation Comments Chloride Lvl (test code = Chloride Lvl) 106 95-109 [facility]2017-02-06 10:22:00 Test Item Value Reference Range Interpretation Comments Bili Total (test code = Bili Total) 0.4 0.2-1.3 [facility]2017-02-06 10:22:00 Test Item Value Reference Range Interpretation Comments Alk Phos (test code = Alk Phos) 74 39-136 [facility]2017-02-06 10:22:00 Test Item Value Reference Range Interpretation Comments eGFR (test code = eGFR) 19 [facility]2017-02-06 10:22:00 Test Item Value Reference Range Interpretation Comments Total Protein (test code = Total 5.2 6.4-8.4 Protein) [facility]2017-02-06 10:22:00 Test Item Value Reference Range Interpretation Comments ALT (test code = ALT) 822 See_Comment [Auto mated message] The system which ge nerated this result transmit rohit reference range : <=65. The reference range was not used to interpr et this result as reji l/abnormal. [facility]2017-02-06 10:22:00 Test Item Value Reference Range Interpretation Comments AST (test code = AST) 205 See_Comment [Auto mated message] The system which ge nerated this result transmit rohit reference range : <=37. The reference range was not used to interpr et this result as reji l/abnormal. [facility]2017-02-06 10:22:00 Test Item Value Reference Range Interpretation Comments Albumin Lvl (test code = Albumin Lvl) 1.8 3.5-5.0 [facility]2017-02-06 10:22:00 Test Item Value Reference Range Interpretation Comments BUN (test code = BUN) 54 7-22 [facility]2017-02-06 10:22:00 Test Item Value Reference Range Interpretation Comments Glucose Lvl (test code = Glucose Lvl) 143 70-99 [facility]2017-02-06 10:22:00 Test Item Value Reference Range Interpretation Comments Creatinine Lvl (test code = Creatinine 3.11 0.50-1.40 Lvl) [facility]2017-02-06 10:22:00 Test Item Value Reference Range Interpretation Comments B/C Ratio (test code = B/C Ratio) 17 6-25 [facility]2017-02-06 10:22:00 Test Item Value Reference Range Interpretation Comments AGAP (test code = AGAP) 16.8 10.0-20.0 [facility]2017-02-06 10:22:00 Test Item Value Reference Range Interpretation Comments Globulin (test code = Globulin) 3.4 2.7-4.2 [facility]2017-02-06 10:22:00 Test Item Value Reference Range Interpretation Comments A/G Ratio (test code = A/G Ratio) 0.5 0.7-1.6 [facility]2017-02-06 10:22:00 Test Item Value Reference Range Interpretation Comments Magnesium Lvl (test code = Magnesium 2.0 1.8-2.4 Lvl) [facility]2017-02-06 10:22:00 Test Item Value Reference Range Interpretation Comments Phosphorus (test code = Phosphorus) 3.7 2.5-4.5 [facility] Camp[id number] 10:22:00 Test Item Value Reference Range Interpretation Comments RDW (test code = RDW) 17.7 11.5-14.5 [facility] CampusGzgyqiwPKJVCWLFRR8948-50-68 10:22:00 Test Item Value Reference Range Interpretation Comments MCHC (test code = MCHC) 32.9 32.0-36.0 [facility] CampusWncrdqkPJOSDHFNJX2686-49-14 10:22:00 Test Item Value Reference Range Interpretation Comments Hct (test code = Hct) 25.4 36.0-48.0 [facility] CampusUbumfhwYUPNOSMZJZ6199-52-76 10:22:00 Test Item Value Reference Range Interpretation Comments MCH (test code = MCH) 26.4 pg 27.0-31.0 [facility] CampusNaiszzgKPJUPRXGHL3587-33-06 10:22:00 Test Item Value Reference Range Interpretation Comments MCV (test code = MCV) 80.3 80.0-98.0 [facility] CampusYdmykxnKJNMMOWOCO0943-04-54 10:22:00 Test Item Value Reference Range Interpretation Comments MPV (test code = MPV) 11.4 7.4-10.4 [facility] CampusHtlqfmtWWPSYJWCJD5846-73-81 10:22:00 Test Item Value Reference Range Interpretation Comments Platelet (test code = Platelet) 74 133-450 [facility] CampusZtkpyygVOSASZZFRM2308-63-83 10:22:00 Test Item Value Reference Range Interpretation Comments RBC (test code = RBC) 3.16 4.20-5.40 [facility] CampusWvcucfcNGRGAZUIVB3877-98-21 10:22:00 Test Item Value Reference Range Interpretation Comments WBC (test code = WBC) 5.3 3.7-10.4 [facility] CampusOixqmntXKVQHVUCYE4211-11-83 10:22:00 Test Item Value Reference Range Interpretation Comments Hgb (test code = Hgb) 8.4 12.0-16.0 [facility] CampusLudlhrcDEXWMSWMTR1465-76-20 10:22:00 Test Item Value Reference Range Interpretation Comments Monocytes (test code = Monocytes) 14.5 2.0-12.0 [facility] CampusMpakgnfBBQDSOYDSX4424-81-71 10:22:00 Test Item Value Reference Range Interpretation Comments Lymphocytes (test code = Lymphocytes) 29.8 20.0-40.0 [facility] CampusLgzzfreGTVGYUIHMJ2088-43-37 10:22:00 Test Item Value Reference Range Interpretation Comments Eosinophils # (test code 0.1 See_Comment [A utomated message] The = Eosinophils #) system whic h generated this result tra nsmitted reference range : <=0.5. The reference r leo was not used to int erpret this result as normal/abnormal . [facility] CampusKvhnqdsLTVNEGTVSV1897-38-99 10:22:00 Test Item Value Reference Range Interpretation Comments Monocytes # (test code 0.8 See_Comment [Aut omated message] The = Monocytes #) system which generated this result tra nsmitted reference range : <=0.8. The reference r leo was not used to int erpret this result as normal/abnormal . [facility] CampusQbxfesbGLVSWRIKHU2622-27-70 10:22:00 Test Item Value Reference Range Interpretation Comments Segs-Bands # (test code = Segs-Bands #) 2.9 1.5-8.1 [facility] CampusTezoyjlNHGYNTQBYT8474-56-62 10:22:00 Test Item Value Reference Range Interpretation Comments Lymphocytes # (test code = Lymphocytes 1.6 1.0-5.5 #) [facility] HospitalKwgzntiCAGZGDYEPX2495-31-21 10:22:00 Test Item Value Reference Range Interpretation Comments Basophils (test code = 0.4 See_Comment [Aut omated message] The Basophils) system which ge nerated this result tra nsmitted reference range : <=1.0. The reference r leo was not used to int erpret this result as normal/abnormal . [facility] CampusUahaeerEVAXSAQZDB9242-99-93 10:22:00 Test Item Value Reference Range Interpretation Comments Eosinophils (test code = 1.2 See_Comment [A utomated message] The Eosinophils) system which ge nerated this result tra nsmitted reference range : <=4.0. The reference r leo was not used to int erpret this result as normal/abnormal . [facility] HospitalJmrvgnlLDLAYLZAVG6126-23-04 10:22:00 Test Item Value Reference Range Interpretation Comments Segs (test code = Segs) 54.1 45.0-75.0 [facility]SPE[facility] [id number] 10:22:00 Test Item Value Reference Range Interpretation Comments Hgb A1C (test code = Hgb A1C) 8.9 [facility] HospitalCARDIAC [id number] 10:22:00 Test Item Value Reference Range Interpretation Comments Total CK (test code = Total CK) 190 12-191 [facility] [id number] 10:22:00 Test Item Value Reference Range Interpretation Comments Calcium Lvl (test code = Calcium Lvl) 7.8 8.5-10.5 [facility] [id number] 10:22:00 Test Item Value Reference Range Interpretation Comments CO2 (test code = CO2) 21 24-32 [facility] [id number] 10:22:00 Test Item Value Reference Range Interpretation Comments Sodium Lvl (test code = Sodium Lvl) 140 135-145 [facility] [id number] 10:22:00 Test Item Value Reference Range Interpretation Comments Potassium Lvl (test code = Potassium 3.8 3.5-5.1 Lvl) [facility] [id number] 10:22:00 Test Item Value Reference Range Interpretation Comments Chloride Lvl (test code = Chloride Lvl) 106 95-109 [facility]2017-02-06 10:22:00 Test Item Value Reference Range Interpretation Comments Bili Total (test code = Bili Total) 0.4 0.2-1.3 [facility]2017-02-06 10:22:00 Test Item Value Reference Range Interpretation Comments Alk Phos (test code = Alk Phos) 74 39-136 [facility]2017-02-06 10:22:00 Test Item Value Reference Range Interpretation Comments eGFR (test code = eGFR) 19 [facility]2017-02-06 10:22:00 Test Item Value Reference Range Interpretation Comments Total Protein (test code = Total 5.2 6.4-8.4 Protein) [facility]2017-02-06 10:22:00 Test Item Value Reference Range Interpretation Comments ALT (test code = ALT) 822 See_Comment [Auto mated message] The system which ge nerated this result transmit rohit reference range : <=65. The reference range was not used to interpr et this result as reji l/abnormal. [facility]2017-02-06 10:22:00 Test Item Value Reference Range Interpretation Comments AST (test code = AST) 205 See_Comment [Auto mated message] The system which ge nerated this result transmit rohit reference range : <=37. The reference range was not used to interpr et this result as reji l/abnormal. [facility]2017-02-06 10:22:00 Test Item Value Reference Range Interpretation Comments Albumin Lvl (test code = Albumin Lvl) 1.8 3.5-5.0 [facility]2017-02-06 10:22:00 Test Item Value Reference Range Interpretation Comments BUN (test code = BUN) 54 7-22 [facility]2017-02-06 10:22:00 Test Item Value Reference Range Interpretation Comments Glucose Lvl (test code = Glucose Lvl) 143 70-99 [facility]2017-02-06 10:22:00 Test Item Value Reference Range Interpretation Comments Creatinine Lvl (test code = Creatinine 3.11 0.50-1.40 Lvl) [facility]2017-02-06 10:22:00 Test Item Value Reference Range Interpretation Comments B/C Ratio (test code = B/C Ratio) 17 6-25 [facility]2017-02-06 10:22:00 Test Item Value Reference Range Interpretation Comments AGAP (test code = AGAP) 16.8 10.0-20.0 [facility]2017-02-06 10:22:00 Test Item Value Reference Range Interpretation Comments Globulin (test code = Globulin) 3.4 2.7-4.2 [facility]2017-02-06 10:22:00 Test Item Value Reference Range Interpretation Comments A/G Ratio (test code = A/G Ratio) 0.5 0.7-1.6 [facility]2017-02-06 10:22:00 Test Item Value Reference Range Interpretation Comments Magnesium Lvl (test code = Magnesium 2.0 1.8-2.4 Lvl) [facility]2017-02-06 10:22:00 Test Item Value Reference Range Interpretation Comments Phosphorus (test code = Phosphorus) 3.7 2.5-4.5 [facility] CampusEcxdklbPMDXPKERKS5985-58-57 10:22:00 Test Item Value Reference Range Interpretation Comments RDW (test code = RDW) 17.7 11.5-14.5 [facility] CampusFwwcmkpPSTCHQNQWC5175-03-26 10:22:00 Test Item Value Reference Range Interpretation Comments MCHC (test code = MCHC) 32.9 32.0-36.0 [facility] CampusOmnanlgRTFZNLEAJR9085-68-31 10:22:00 Test Item Value Reference Range Interpretation Comments Hct (test code = Hct) 25.4 36.0-48.0 [facility] CampusOqgechzDQOZHKRDDU4971-05-32 10:22:00 Test Item Value Reference Range Interpretation Comments MCH (test code = MCH) 26.4 pg 27.0-31.0 [facility] CampusJkbsqkmBKFRBSSELS8524-64-62 10:22:00 Test Item Value Reference Range Interpretation Comments MCV (test code = MCV) 80.3 80.0-98.0 [facility] CampusEhgvmbpIZMDQULILC3421-95-34 10:22:00 Test Item Value Reference Range Interpretation Comments MPV (test code = MPV) 11.4 7.4-10.4 [facility] CampusYiohwsiECMKFZFHUI5400-51-87 10:22:00 Test Item Value Reference Range Interpretation Comments Platelet (test code = Platelet) 74 133-450 [facility] CampusQabpundTZCFEAZPQZ9951-75-32 10:22:00 Test Item Value Reference Range Interpretation Comments RBC (test code = RBC) 3.16 4.20-5.40 [facility] CampusDaxqthkYNVJOBDWIC4716-04-36 10:22:00 Test Item Value Reference Range Interpretation Comments WBC (test code = WBC) 5.3 3.7-10.4 [facility] CampusHrgsyarDVVSIIFGYZ6778-25-73 10:22:00 Test Item Value Reference Range Interpretation Comments Hgb (test code = Hgb) 8.4 12.0-16.0 [facility] CampusPuehummIOIAULTQKZ3697-81-86 10:22:00 Test Item Value Reference Range Interpretation Comments Monocytes (test code = Monocytes) 14.5 2.0-12.0 [facility] CampusCgkrhpzOKAEIJRKQX0359-76-99 10:22:00 Test Item Value Reference Range Interpretation Comments Lymphocytes (test code = Lymphocytes) 29.8 20.0-40.0 [facility] CampusBfvjwsiSTVXXCYQHI7244-86-32 10:22:00 Test Item Value Reference Range Interpretation Comments Eosinophils # (test code 0.1 See_Comment [A utomated message] The = Eosinophils #) system whic h generated this result tra nsmitted reference range : <=0.5. The reference r leo was not used to int erpret this result as normal/abnormal . [facility] CampusPwiuhruQJUKZJRGJG0564-48-26 10:22:00 Test Item Value Reference Range Interpretation Comments Monocytes # (test code 0.8 See_Comment [Aut omated message] The = Monocytes #) system which generated this result tra nsmitted reference range : <=0.8. The reference r leo was not used to int erpret this result as normal/abnormal . [facility] CampusQcyigneRYDZHJSWUG9350-72-55 10:22:00 Test Item Value Reference Range Interpretation Comments Segs-Bands # (test code = Segs-Bands #) 2.9 1.5-8.1 [facility] CampusVxwvdtkWXIIFSYZTE5308-74-90 10:22:00 Test Item Value Reference Range Interpretation Comments Lymphocytes # (test code = Lymphocytes 1.6 1.0-5.5 #) [facility] CampusDedkakiJQIUBDILOT6573-35-86 10:22:00 Test Item Value Reference Range Interpretation Comments Basophils (test code = 0.4 See_Comment [Aut omated message] The Basophils) system which ge nerated this result tra nsmitted reference range : <=1.0. The reference r leo was not used to int erpret this result as normal/abnormal . [facility] CampusClrjlrxNXIAKHRKVS7829-42-05 10:22:00 Test Item Value Reference Range Interpretation Comments Eosinophils (test code = 1.2 See_Comment [A utomated message] The Eosinophils) system which ge nerated this result tra nsmitted reference range : <=4.0. The reference r leo was not used to int erpret this result as normal/abnormal . [facility] HospitalMtmcymtRBDEQIRNGB9813-44-48 10:22:00 Test Item Value Reference Range Interpretation Comments Segs (test code = Segs) 54.1 45.0-75.0 [facility] [id number] 10:22:00 Test Item Value Reference Range Interpretation Comments Hgb A1C (test code = Hgb A1C) 8.9 [facility] [id number] 10:22:00 Test Item Value Reference Range Interpretation Comments Total CK (test code = Total CK) 190 12-191 [facility] [id number] 10:22:00 Test Item Value Reference Range Interpretation Comments Calcium Lvl (test code = Calcium Lvl) 7.8 8.5-10.5 [facility] [id number] 10:22:00 Test Item Value Reference Range Interpretation Comments CO2 (test code = CO2) 21 24-32 [facility] [id number] 10:22:00 Test Item Value Reference Range Interpretation Comments Sodium Lvl (test code = Sodium Lvl) 140 135-145 [facility] [id number] 10:22:00 Test Item Value Reference Range Interpretation Comments Potassium Lvl (test code = Potassium 3.8 3.5-5.1 Lvl) [facility] [id number] 10:22:00 Test Item Value Reference Range Interpretation Comments Chloride Lvl (test code = Chloride Lvl) 106 95-109 [facility] [id number] 10:22:00 Test Item Value Reference Range Interpretation Comments Bili Total (test code = Bili Total) 0.4 0.2-1.3 [facility] [id number] 10:22:00 Test Item Value Reference Range Interpretation Comments Alk Phos (test code = Alk Phos) 74 39-136 [facility]2017-02-06 10:22:00 Test Item Value Reference Range Interpretation Comments eGFR (test code = eGFR) 19 [facility]2017-02-06 10:22:00 Test Item Value Reference Range Interpretation Comments Total Protein (test code = Total 5.2 6.4-8.4 Protein) [facility]2017-02-06 10:22:00 Test Item Value Reference Range Interpretation Comments ALT (test code = ALT) 822 See_Comment [Auto mated message] The system which ge nerated this result transmit rohit reference range : <=65. The reference range was not used to interpr et this result as reji l/abnormal. [facility]2017-02-06 10:22:00 Test Item Value Reference Range Interpretation Comments AST (test code = AST) 205 See_Comment [Auto mated message] The system which ge nerated this result transmit rohit reference range : <=37. The reference range was not used to interpr et this result as reji l/abnormal. [facility]2017-02-06 10:22:00 Test Item Value Reference Range Interpretation Comments Albumin Lvl (test code = Albumin Lvl) 1.8 3.5-5.0 [facility]2017-02-06 10:22:00 Test Item Value Reference Range Interpretation Comments BUN (test code = BUN) 54 7-22 [facility]2017-02-06 10:22:00 Test Item Value Reference Range Interpretation Comments Glucose Lvl (test code = Glucose Lvl) 143 70-99 [facility]2017-02-06 10:22:00 Test Item Value Reference Range Interpretation Comments Creatinine Lvl (test code = Creatinine 3.11 0.50-1.40 Lvl) [facility]2017-02-06 10:22:00 Test Item Value Reference Range Interpretation Comments B/C Ratio (test code = B/C Ratio) 17 6-25 [facility]2017-02-06 10:22:00 Test Item Value Reference Range Interpretation Comments AGAP (test code = AGAP) 16.8 10.0-20.0 [facility]2017-02-06 10:22:00 Test Item Value Reference Range Interpretation Comments Globulin (test code = Globulin) 3.4 2.7-4.2 [facility]2017-02-06 10:22:00 Test Item Value Reference Range Interpretation Comments A/G Ratio (test code = A/G Ratio) 0.5 0.7-1.6 [facility]2017-02-06 10:22:00 Test Item Value Reference Range Interpretation Comments Magnesium Lvl (test code = Magnesium 2.0 1.8-2.4 Lvl) [facility]2017-02-06 10:22:00 Test Item Value Reference Range Interpretation Comments Phosphorus (test code = Phosphorus) 3.7 2.5-4.5 [facility] CampusHdbhqmaQGDLHQGIXP2272-44-27 10:22:00 Test Item Value Reference Range Interpretation Comments RDW (test code = RDW) 17.7 11.5-14.5 [facility] CampusLtkhxbsIRGNMNINFD7852-18-26 10:22:00 Test Item Value Reference Range Interpretation Comments MCHC (test code = MCHC) 32.9 32.0-36.0 [facility] CampusIdiuypwFWWUNGOIXB2592-05-69 10:22:00 Test Item Value Reference Range Interpretation Comments Hct (test code = Hct) 25.4 36.0-48.0 [facility] CampusChzbbalQUMWLIXZXE3445-38-77 10:22:00 Test Item Value Reference Range Interpretation Comments MCH (test code = MCH) 26.4 pg 27.0-31.0 [facility] CampusUhxsrojNMLZSGMCLZ3724-66-56 10:22:00 Test Item Value Reference Range Interpretation Comments MCV (test code = MCV) 80.3 80.0-98.0 [facility] CampusNjfxwesYGOIXLQMVH0150-95-43 10:22:00 Test Item Value Reference Range Interpretation Comments MPV (test code = MPV) 11.4 7.4-10.4 [facility] CampusBrmbnxjBLFBRPRUQG1733-58-86 10:22:00 Test Item Value Reference Range Interpretation Comments Platelet (test code = Platelet) 74 133-450 [facility] CampusZwbtaqjEIRCVGQVYX8552-18-04 10:22:00 Test Item Value Reference Range Interpretation Comments RBC (test code = RBC) 3.16 4.20-5.40 [facility] CampusRabmhzwHSEBUAERYZ5146-25-20 10:22:00 Test Item Value Reference Range Interpretation Comments WBC (test code = WBC) 5.3 3.7-10.4 [facility] CampusKvfearhQIQZMUACPO7457-11-93 10:22:00 Test Item Value Reference Range Interpretation Comments Hgb (test code = Hgb) 8.4 12.0-16.0 [facility] CampusUryqehwQQBYTAAJKC8230-24-97 10:22:00 Test Item Value Reference Range Interpretation Comments Monocytes (test code = Monocytes) 14.5 2.0-12.0 [facility] CampusWehfagdFMYUXXNRYZ7157-15-92 10:22:00 Test Item Value Reference Range Interpretation Comments Lymphocytes (test code = Lymphocytes) 29.8 20.0-40.0 [facility] CampusCzrpjnsVDNSLQNXPC6959-66-60 10:22:00 Test Item Value Reference Range Interpretation Comments Eosinophils # (test code 0.1 See_Comment [A utomated message] The = Eosinophils #) system whic h generated this result tra nsmitted reference range : <=0.5. The reference r leo was not used to int erpret this result as normal/abnormal . [facility] CampusIrgxpyiXZLTOXITBW1535-96-89 10:22:00 Test Item Value Reference Range Interpretation Comments Monocytes # (test code 0.8 See_Comment [Aut omated message] The = Monocytes #) system which generated this result tra nsmitted reference range : <=0.8. The reference r leo was not used to int erpret this result as normal/abnormal . [facility] CampusZyvjnzjZVRMKULEPC3006-51-79 10:22:00 Test Item Value Reference Range Interpretation Comments Segs-Bands # (test code = Segs-Bands #) 2.9 1.5-8.1 [facility] CampusNzplroxIZGORBIYVO3915-16-64 10:22:00 Test Item Value Reference Range Interpretation Comments Lymphocytes # (test code = Lymphocytes 1.6 1.0-5.5 #) [facility] CampusPppnpmnZJWMBQFOWA1367-73-45 10:22:00 Test Item Value Reference Range Interpretation Comments Basophils (test code = 0.4 See_Comment [Aut omated message] The Basophils) system which ge nerated this result tra nsmitted reference range : <=1.0. The reference r leo was not used to int erpret this result as normal/abnormal . [facility] CampusGajeiikVHMGBSRMZP0210-15-92 10:22:00 Test Item Value Reference Range Interpretation Comments Eosinophils (test code = 1.2 See_Comment [A utomated message] The Eosinophils) system which ge nerated this result tra nsmitted reference range : <=4.0. The reference r leo was not used to int erpret this result as normal/abnormal . [facility]QvslikbRPRMOGHXJA5589-77-23 10:22:00 Test Item Value Reference Range Interpretation Comments Segs (test code = Segs) 54.1 45.0-75.0 [facility]SPE[facility] [id number] 10:22:00 Test Item Value Reference Range Interpretation Comments Hgb A1C (test code = Hgb A1C) 8.9 [facility]CARDIAC KTLLKZD2312-07-79 17:40:00 Test Item Value Reference Range Interpretation Comments Total CK (test code = Total CK) 344 12-191 [facility] HospitalBwzmzyiKCGOXPNJBZ9048-89-84 17:40:00 Test Item Value Reference Range Interpretation Comments IVETTE (test code = IVETTE) Positive *ABN*(07/26/16 11:40 AM) [facility] HospitalAkttlocTQAXHEYYFC9679-99-01 17:40:00 Test Item Value Reference Range Interpretation Comments [employer]VIS[employer]RIC[employer] 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 [facility] HospitalFunacxjGFMTARHNKL5067-69-46 17:40:00 Test Item Value Reference Range Interpretation Comments SS-B (La) Ab (test code = SS-B (La) Ab) no [facility]WsuesvgFUTTTGODUG4223-65-59 17:40:00 Test Item Value Reference Range Interpretation Comments SS-A (Ro) Ab (test code = SS-A (Ro) Ab) no [facility] HospitalBfzzxdhVKWEJIKHSF3673-31-86 17:40:00 Test Item Value Reference Range Interpretation Comments DNA Ab (DS) (test Negative (07/26/16 11:40 code = DNA Ab (DS)) AM) [facility] HospitalWxurdkuKAJNDROURR2889-69-51 17:40:00 Test Item Value Reference Range Interpretation Comments IVETTE Titer (test code = 1:40 *ABN*(07/26/16 IVETTE Titer) 11:40 AM) [facility] [id number] 17:40:00 Test Item Value Reference Range Interpretation Comments U Sodium (test code = U Sodium) 21 [facility] OSPMQDO6376-31-90 17:40:00 Test Item Value Reference Range Interpretation Comments Total CK (test code = Total CK) 344 12191 [facility] HospitalXlqmjfzOKOVMVKEPS5055-29-70 17:40:00 Test Item Value Reference Range Interpretation Comments IVETTE (test code = IVETTE) Positive *ABN*(07/26/16 11:40 AM) [facility] HospitalFmmsiupUTXPLUZTOG3068-72-09 17:40:00 Test Item Value Reference Range Interpretation Comments SUPERVIS[employer]RIC[employer] 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 [facility] HospitalAcgevwhTHDXMRGTAU8128-77-33 17:40:00 Test Item Value Reference Range Interpretation Comments SS-B (La) Ab (test code = SS-B (La) Ab) no gt [facility] HospitalXfzysyyNFVJVPODRO7142-94-35 17:40:00 Test Item Value Reference Range Interpretation Comments SS-A (Ro) Ab (test code = SS-A (Ro) Ab) no gt [facility] HospitalPnegmqmKSXZKJIVLH6843-11-26 17:40:00 Test Item Value Reference Range Interpretation Comments DNA Ab (DS) (test Negative (07/26/16 11:40 code = DNA Ab (DS)) AM) [facility] HospitalNluyojzOVVKDIXKET5398-84-51 17:40:00 Test Item Value Reference Range Interpretation Comments IVETTE Titer (test code = 1:40 *ABN*(07/26/16 IVETTE Titer) 11:40 AM) [facility] [id number] 17:40:00 Test Item Value Reference Range Interpretation Comments U Sodium (test code = U Sodium) 21 [facility] CCQZAMQ8654-41-64 17:40:00 Test Item Value Reference Range Interpretation Comments Total CK (test code = Total CK) 344 12-191 [facility] CenterRjxwjtfBHVHZIWWPE1553-71-23 17:40:00 Test Item Value Reference Range Interpretation Comments IVETTE (test code = IVETTE) Positive *ABN*(07/26/16 11:40 AM) [facility] PylxtroZGPHHVKHXJ6656-98-17 17:40:00 Test Item Value Reference Range Interpretation Comments 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 [facility] WkjepeyEAVVTTAQBB4749-01-28 17:40:00 Test Item Value Reference Range Interpretation Comments SS-B (La) Ab (test code = SS-B (La) Ab) no gt [facility] RiqzoweTFUQDTHXEU2091-54-59 17:40:00 Test Item Value Reference Range Interpretation Comments SS-A (Ro) Ab (test code = SS-A (Ro) Ab) no gt [facility] StxbhlwXEHZDIRSGQ8086-35-46 17:40:00 Test Item Value Reference Range Interpretation Comments DNA Ab (DS) (test Negative (07/26/16 11:40 code = DNA Ab (DS)) AM) [facility] QzovtfhEUECSDYTRX6785-83-70 17:40:00 Test Item Value Reference Range Interpretation Comments IVETTE Titer (test code = 1:40 *ABN*(07/26/16 IVETTE Titer) 11:40 AM) [facility] HospitalannURINE [id number] 17:40:00 Test Item Value Reference Range Interpretation Comments U Sodium (test code = U Sodium) 21 [facility] HospitalannCARDIAC LRVVTIJ9911-98-13 17:40:00 Test Item Value Reference Range Interpretation Comments Total CK (test code = Total CK) 344 12-191 [facility] EnewnbzLQDCISCNAL9384-65-86 17:40:00 Test Item Value Reference Range Interpretation Comments IVETTE (test code = IVETTE) Positive *ABN*(07/26/16 11:40 AM) [facility] MfmfflgKCJWESDCDZ2302-00-53 17:40:00 Test Item Value Reference Range Interpretation Comments 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 [facility] VaqbldkEOXRRYRABO4486-37-18 17:40:00 Test Item Value Reference Range Interpretation Comments SS-B (La) Ab (test code = SS-B (La) Ab) no gt [facility] IiayoywSWEEWUNTWV4513-89-10 17:40:00 Test Item Value Reference Range Interpretation Comments SS-A (Ro) Ab (test code = SS-A (Ro) Ab) no gt [facility] ChnwwyzTAUTAHKEGX2046-07-46 17:40:00 Test Item Value Reference Range Interpretation Comments DNA Ab (DS) (test Negative (07/26/16 11:40 code = DNA Ab (DS)) AM) [facility] HospitalAnlolvxNUCBFLXVBV1651-35-01 17:40:00 Test Item Value Reference Range Interpretation Comments IVETTE Titer (test code = 1:40 *ABN*(07/26/16 IVETTE Titer) 11:40 AM) [facility]UR[facility] [id number] 17:40:00 Test Item Value Reference Range Interpretation Comments U Sodium (test code = U Sodium) 21 [facility] HospitalannCARDIAC ORZSVDK8962-80-60 17:40:00 Test Item Value Reference Range Interpretation Comments Total CK (test code = Total CK) 344 12-191 [facility] HospitalNaeltqcAYGKUJKKDW3260-40-93 17:40:00 Test Item Value Reference Range Interpretation Comments IVETTE (test code = IVETTE) Positive *ABN*(07/26/16 11:40 AM) [facility] LynxyosNHBYASHUFF1307-81-04 17:40:00 Test Item Value Reference Range Interpretation Comments SUPERVISOR [employer]RICATING Ab (test code = SUPERVISOR [employer]CR[employer]E [employer] FABRICATING Ab) no gt [facility] QmgwovbSPOIMEYSCY3463-50-95 17:40:00 Test Item Value Reference Range Interpretation Comments Sm Ab (test code = Sm Ab) no gt [facility] NxrfoivJLHSSTHYUS3496-57-83 17:40:00 Test Item Value Reference Range Interpretation Comments IVETTE Interp (test code Pattern appears = IVETTE Interp) Nucleolar. [facility] ZoixtdcECOITLUWZZ5012-92-73 17:40:00 Test Item Value Reference Range Interpretation Comments SS-B (La) Ab (test code = SS-B (La) Ab) no gt [facility] GadglilHASHQUPBPN2652-36-54 17:40:00 Test Item Value Reference Range Interpretation Comments SS-A (Ro) Ab (test code = SS-A (Ro) Ab) no gt [facility] PtwmalyNPSHLTBNSY1122-90-11 17:40:00 Test Item Value Reference Range Interpretation Comments DNA Ab (DS) (test Negative (07/26/16 11:40 code = DNA Ab (DS)) AM) [facility] HospitalXxkkjtrBMKCXPWMSC0522-39-86 17:40:00 Test Item Value Reference Range Interpretation Comments IVETTE Titer (test code = 1:40 *ABN*(07/26/16 IVETTE Titer) 11:40 AM) [facility] [id number] 17:40:00 Test Item Value Reference Range Interpretation Comments U Sodium (test code = U Sodium) 21 [facility] HospitalVsgqoucUCGEFYCFDJ5052-59-32 14:00:00 Test Item Value Reference Range Interpretation Comments INR (test code = INR) 1.11 0.85-1.17 [facility] HospitalWkcykfoJKZXGMFTNF9276-99-64 14:00:00 Test Item Value Reference Range Interpretation Comments PT (test code = PT) 14.5 s 12.0-14.7 [facility] HospitalObztbqfLWPQIOJADT9658-22-97 14:00:00 Test Item Value Reference Range Interpretation Comments Hep A IgM (test code Negative *NA*(07/26/16 = Hep A IgM) 8:00 AM) [facility] HospitalClrsvfnWCUORKCPQT5985-25-69 14:00:00 Test Item Value Reference Range Interpretation Comments Hep B Core IgM (test Negative *NA*(07/26/16 code = Hep B Core 8:00 AM) IgM) [facility] HospitalZrdotfkIRYIOMDFLR7156-55-77 14:00:00 Test Item Value Reference Range Interpretation Comments Hep C Ab (test code = Negative *NA*(07/26/16 Hep C Ab) 8:00 AM) [facility] HospitalFfltgsnTFCRMAFZDN3699-27-01 14:00:00 Test Item Value Reference Range Interpretation Comments Hep Bs Ag (test code Negative *NA*(07/26/16 = Hep Bs Ag) 8:00 AM) [facility] HospitalZoqmltrJPUCMVCMDM5640-69-23 14:00:00 Test Item Value Reference Range Interpretation Comments INR (test code = INR) 1.11 0.85-1.17 [facility]KbdobsjQTVSUYSPTT5839-94-58 14:00:00 Test Item Value Reference Range Interpretation Comments PT (test code = PT) 14.5 s 12.0-14.7 [facility] CenterWbkptiuKKKGZOLVOO1830-19-12 14:00:00 Test Item Value Reference Range Interpretation Comments Hep A IgM (test code Negative *NA*(07/26/16 = Hep A IgM) 8:00 AM) [facility] CenterFwazmcnWEWBMSQTXI9575-77-31 14:00:00 Test Item Value Reference Range Interpretation Comments Hep B Core IgM (test Negative *NA*(07/26/16 code = Hep B Core 8:00 AM) IgM) [facility] CenterUibhrkoBCMJERXOXP6643-28-10 14:00:00 Test Item Value Reference Range Interpretation Comments Hep C Ab (test code = Negative *NA*(07/26/16 Hep C Ab) 8:00 AM) [facility] CenterLypyunlEXWZEVMYRX4370-38-35 14:00:00 Test Item Value Reference Range Interpretation Comments Hep Bs Ag (test code Negative *NA*(07/26/16 = Hep Bs Ag) 8:00 AM) [facility] CampusCobjecqCSCKMXPACN3761-85-67 14:00:00 Test Item Value Reference Range Interpretation Comments INR (test code = INR) 1.11 0.85-1.17 [facility] CampusQnbivsiSXJMQKUMKP4563-10-33 14:00:00 Test Item Value Reference Range Interpretation Comments PT (test code = PT) 14.5 s 12.0-14.7 [facility] CenterFbvwzsaUJHBDVBXXH4936-07-60 14:00:00 Test Item Value Reference Range Interpretation Comments Hep A IgM (test code Negative *NA*(07/26/16 = Hep A IgM) 8:00 AM) [facility] CenterZzexmfqILNANFFLKV6548-62-87 14:00:00 Test Item Value Reference Range Interpretation Comments Hep B Core IgM (test Negative *NA*(07/26/16 code = Hep B Core 8:00 AM) IgM) [facility] CenterRrvdquiWKFKGMPBPB7459-01-73 14:00:00 Test Item Value Reference Range Interpretation Comments Hep C Ab (test code = Negative *NA*(07/26/16 Hep C Ab) 8:00 AM) [facility] CenterDoiojmyWPOFOONLVI3564-27-98 14:00:00 Test Item Value Reference Range Interpretation Comments Hep Bs Ag (test code Negative *NA*(07/26/16 = Hep Bs Ag) 8:00 AM) [facility] CampusSfoavhvJJZMKPGDQX0068-69-06 14:00:00 Test Item Value Reference Range Interpretation Comments INR (test code = INR) 1.11 0.85-1.17 [facility] CampusKvyrvnfGHXOBEGYRW9254-87-24 14:00:00 Test Item Value Reference Range Interpretation Comments PT (test code = PT) 14.5 s 12.0-14.7 [facility] CenterXqpniooSWJIIIVHAX0220-27-62 14:00:00 Test Item Value Reference Range Interpretation Comments Hep A IgM (test code Negative *NA*(07/26/16 = Hep A IgM) 8:00 AM) [facility] CenterWpeghvvERJFZNSYBK5706-55-68 14:00:00 Test Item Value Reference Range Interpretation Comments Hep B Core IgM (test Negative *NA*(07/26/16 code = Hep B Core 8:00 AM) IgM) [facility] CenterTmcospvVKGPCRDNTS0191-31-65 14:00:00 Test Item Value Reference Range Interpretation Comments Hep C Ab (test code = Negative *NA*(07/26/16 Hep C Ab) 8:00 AM) [facility] CenterWaliydgJVSURZFNXS2907-77-75 14:00:00 Test Item Value Reference Range Interpretation Comments Hep Bs Ag (test code Negative *NA*(07/26/16 = Hep Bs Ag) 8:00 AM) [facility] CampusUpusgfjVHEJNVDJSO4485-48-65 14:00:00 Test Item Value Reference Range Interpretation Comments INR (test code = INR) 1.11 0.85-1.17 [facility] CampusNubsinhZPRIKDGFFK9447-43-84 14:00:00 Test Item Value Reference Range Interpretation Comments PT (test code = PT) 14.5 s 12.0-14.7 [facility] CenterXulsaplGUJTYBEVII7781-81-17 14:00:00 Test Item Value Reference Range Interpretation Comments Hep A IgM (test code Negative *NA*(07/26/16 = Hep A IgM) 8:00 AM) [facility] CenterCkcebmoEGXFZEMUKW3804-62-47 14:00:00 Test Item Value Reference Range Interpretation Comments Hep B Core IgM (test Negative *NA*(07/26/16 code = Hep B Core 8:00 AM) IgM) [facility] CenterXobuohfHSXNXIALFV9180-90-92 14:00:00 Test Item Value Reference Range Interpretation Comments Hep C Ab (test code = Negative *NA*(07/26/16 Hep C Ab) 8:00 AM) [facility] HospitalTvtzvitTQFTSPUEXC4257-33-99 14:00:00 Test Item Value Reference Range Interpretation Comments Hep Bs Ag (test code Negative *NA*(07/26/16 = Hep Bs Ag) 8:00 AM) [facility]2017-02-05 10:42:00 Test Item Value Reference Range Interpretation Comments B/C Ratio (test code = B/C Ratio) 17 6-25 [facility]2017-02-05 10:42:00 Test Item Value Reference Range Interpretation Comments ALT (test code = ALT) 1232 See_Comment [Auto mated message] The system which ge nerated this result transmit rohit reference range : <=65. The reference range was not used to interpr et this result as reji l/abnormal. [facility]2017-02-05 10:42:00 Test Item Value Reference Range Interpretation Comments A/G Ratio (test code = A/G Ratio) 0.5 0.7-1.6 [facility]2017-02-05 10:42:00 Test Item Value Reference Range Interpretation Comments Bili Total (test code = Bili Total) 0.3 0.2-1.3 [facility]2017-02-05 10:42:00 Test Item Value Reference Range Interpretation Comments Alk Phos (test code = Alk Phos) 79 39-136 [facility]2017-02-05 10:42:00 Test Item Value Reference Range Interpretation Comments AST (test code = AST) 586 See_Comment [Auto mated message] The system which ge nerated this result transmit rohit reference range : <=37. The reference range was not used to interpr et this result as reji l/abnormal. [facility]2017-02-05 10:42:00 Test Item Value Reference Range Interpretation Comments Total Protein (test code = Total 5.5 6.4-8.4 Protein) [facility]2017-02-05 10:42:00 Test Item Value Reference Range Interpretation Comments Globulin (test code = Globulin) 3.7 2.7-4.2 [facility]2017-02-05 10:42:00 Test Item Value Reference Range Interpretation Comments Albumin Lvl (test code = Albumin Lvl) 1.8 3.5-5.0 [facility]2017-02-05 10:42:00 Test Item Value Reference Range Interpretation Comments Magnesium Lvl (test code = Magnesium 2.1 1.8-2.4 Lvl) [facility] CampusPeuphorUBYKRYSYSM7867-37-30 10:42:00 Test Item Value Reference Range Interpretation Comments Acanthocyte (test code = Acanthocyte) Slight [facility] CampusJraruvnGOXMRBQLJM1410-70-09 10:42:00 Test Item Value Reference Range Interpretation Comments Rouleaux (test code = Present *ABN*(07/26/16 Rouleaux) 4:42 AM) [facility] CampusIagciulOHZUGWYTSY2493-92-25 10:42:00 Test Item Value Reference Range Interpretation Comments Anisocyte (test code = 1+ *ABN*(07/26/16 4:42 Anisocyte) AM) [facility] CampusVtpykxmLIHQACAKTZ1209-00-01 10:42:00 Test Item Value Reference Range Interpretation Comments Basophils # (test code 0.1 See_Comment [Aut omated message] The = Basophils #) system which generated this result tra nsmitted reference range : <=0.2. The reference r leo was not used to int erpret this result as normal/abnormal . [facility] CampusOkdkltxWOWVZMKCRB3506-49-05 10:42:00 Test Item Value Reference Range Interpretation Comments Large Plt (test code Moderate *ABN*(07/26/16 = Large Plt) 4:42 AM) [facility] HospitalIroucpjYVJSYLVJFU4580-20-20 10:42:00 Test Item Value Reference Range Interpretation Comments C4 Complement (test code = C4 42 16-47 Complement) [facility]2017-02-05 10:42:00 Test Item Value Reference Range Interpretation Comments B/C Ratio (test code = B/C Ratio) 17 6-25 [facility]2017-02-05 10:42:00 Test Item Value Reference Range Interpretation Comments ALT (test code = ALT) 1232 See_Comment [Auto mated message] The system which ge nerated this result transmit rohit reference range : <=65. The reference range was not used to interpr et this result as reji l/abnormal. [facility]2017-02-05 10:42:00 Test Item Value Reference Range Interpretation Comments A/G Ratio (test code = A/G Ratio) 0.5 0.7-1.6 [facility]2017-02-05 10:42:00 Test Item Value Reference Range Interpretation Comments Bili Total (test code = Bili Total) 0.3 0.2-1.3 [facility]2017-02-05 10:42:00 Test Item Value Reference Range Interpretation Comments Alk Phos (test code = Alk Phos) 79 39-136 [facility]2017-02-05 10:42:00 Test Item Value Reference Range Interpretation Comments AST (test code = AST) 586 See_Comment [Auto mated message] The system which ge nerated this result transmit rohit reference range : <=37. The reference range was not used to interpr et this result as reji l/abnormal. [facility]2017-02-05 10:42:00 Test Item Value Reference Range Interpretation Comments Total Protein (test code = Total 5.5 6.4-8.4 Protein) [facility]2017-02-05 10:42:00 Test Item Value Reference Range Interpretation Comments Globulin (test code = Globulin) 3.7 2.7-4.2 [facility]2017-02-05 10:42:00 Test Item Value Reference Range Interpretation Comments Albumin Lvl (test code = Albumin Lvl) 1.8 3.5-5.0 [facility]2017-02-05 10:42:00 Test Item Value Reference Range Interpretation Comments Magnesium Lvl (test code = Magnesium 2.1 1.8-2.4 Lvl) [facility] CampusPucwvmtCTACDWCCEY4439-33-34 10:42:00 Test Item Value Reference Range Interpretation Comments Acanthocyte (test code = Acanthocyte) Slight [facility] CampusZpxtevxIRHVAGXUOZ9021-37-50 10:42:00 Test Item Value Reference Range Interpretation Comments Rouleaux (test code = Present *ABN*(07/26/16 Rouleaux) 4:42 AM) [facility] CampusWznsnuuTFYDXXDQSN8249-05-97 10:42:00 Test Item Value Reference Range Interpretation Comments Anisocyte (test code = 1+ *ABN*(07/26/16 4:42 Anisocyte) AM) [facility] CampusHmwshsaEUFCPOVULP3720-59-56 10:42:00 Test Item Value Reference Range Interpretation Comments Basophils # (test code 0.1 See_Comment [Aut omated message] The = Basophils #) system which generated this result tra nsmitted reference range : <=0.2. The reference r leo was not used to int erpret this result as normal/abnormal . [facility]GpgdyaaMCTVTIWDBC2758-75-94 10:42:00 Test Item Value Reference Range Interpretation Comments Large Plt (test code Moderate *ABN*(07/26/16 = Large Plt) 4:42 AM) [facility] HospitalYcsntspWZODMQXLKL8718-09-71 10:42:00 Test Item Value Reference Range Interpretation Comments C4 Complement (test code = C4 42 16-47 Complement) [facility]2017-02-05 10:42:00 Test Item Value Reference Range Interpretation Comments B/C Ratio (test code = B/C Ratio) 17 6-25 [facility]2017-02-05 10:42:00 Test Item Value Reference Range Interpretation Comments ALT (test code = ALT) 1232 See_Comment [Auto mated message] The system which ge nerated this result transmit rohit reference range : <=65. The reference range was not used to interpr et this result as reji l/abnormal. [facility]2017-02-05 10:42:00 Test Item Value Reference Range Interpretation Comments A/G Ratio (test code = A/G Ratio) 0.5 0.7-1.6 [facility]2017-02-05 10:42:00 Test Item Value Reference Range Interpretation Comments Bili Total (test code = Bili Total) 0.3 0.2-1.3 [facility]2017-02-05 10:42:00 Test Item Value Reference Range Interpretation Comments Alk Phos (test code = Alk Phos) 79 39-136 [facility]2017-02-05 10:42:00 Test Item Value Reference Range Interpretation Comments AST (test code = AST) 586 See_Comment [Auto mated message] The system which ge nerated this result transmit rohit reference range : <=37. The reference range was not used to interpr et this result as reji l/abnormal. [facility]2017-02-05 10:42:00 Test Item Value Reference Range Interpretation Comments Total Protein (test code = Total 5.5 6.4-8.4 Protein) [facility]2017-02-05 10:42:00 Test Item Value Reference Range Interpretation Comments Globulin (test code = Globulin) 3.7 2.7-4.2 [facility]2017-02-05 10:42:00 Test Item Value Reference Range Interpretation Comments Albumin Lvl (test code = Albumin Lvl) 1.8 3.5-5.0 [facility]2017-02-05 10:42:00 Test Item Value Reference Range Interpretation Comments Magnesium Lvl (test code = Magnesium 2.1 1.8-2.4 Lvl) [facility] CampusIlcdkjbEUAMQNUHZG2563-22-07 10:42:00 Test Item Value Reference Range Interpretation Comments Acanthocyte (test code = Acanthocyte) Slight [facility] CampusYahpvnbGFANVHBRMV1174-12-19 10:42:00 Test Item Value Reference Range Interpretation Comments Rouleaux (test code = Present *ABN*(07/26/16 Rouleaux) 4:42 AM) [facility] CampusMjqmrxhYTVYAULZLK5342-05-28 10:42:00 Test Item Value Reference Range Interpretation Comments Anisocyte (test code = 1+ *ABN*(07/26/16 4:42 Anisocyte) AM) [facility] CampusQhqrbddSLNRABUFVF0943-34-98 10:42:00 Test Item Value Reference Range Interpretation Comments Basophils # (test code 0.1 See_Comment [Aut omated message] The = Basophils #) system which generated this result tra nsmitted reference range : <=0.2. The reference r leo was not used to int erpret this result as normal/abnormal . [facility] CampusEnwkxojKGTXANNJDE5104-50-95 10:42:00 Test Item Value Reference Range Interpretation Comments Large Plt (test code Moderate *ABN*(07/26/16 = Large Plt) 4:42 AM) [facility]SwlnzyqRGIFNEMTAF2393-13-15 10:42:00 Test Item Value Reference Range Interpretation Comments C4 Complement (test code = C4 42 16-47 Complement) [facility]2017-02-05 10:42:00 Test Item Value Reference Range Interpretation Comments B/C Ratio (test code = B/C Ratio) 17 6-25 [facility]2017-02-05 10:42:00 Test Item Value Reference Range Interpretation Comments ALT (test code = ALT) 1232 See_Comment [Auto mated message] [facility] system which ge nerated this result transmit rohit reference range : <=65. The reference range was not used to interpr et this result as reji l/abnormal. [facility]2017-02-05 10:42:00 Test Item Value Reference Range Interpretation Comments A/G Ratio (test code = A/G Ratio) 0.5 0.7-1.6 [facility]2017-02-05 10:42:00 Test Item Value Reference Range Interpretation Comments Bili Total (test code = Bili Total) 0.3 0.2-1.3 [facility]2017-02-05 10:42:00 Test Item Value Reference Range Interpretation Comments Alk Phos (test code = Alk Phos) 79 39-136 [facility]2017-02-05 10:42:00 Test Item Value Reference Range Interpretation Comments AST (test code = AST) 586 See_Comment [Auto mated message] The system which ge nerated this result transmit rohit reference range : <=37. The reference range was not used to interpr et this result as reji l/abnormal. [facility]2017-02-05 10:42:00 Test Item Value Reference Range Interpretation Comments Total Protein (test code = Total 5.5 6.4-8.4 Protein) [facility]2017-02-05 10:42:00 Test Item Value Reference Range Interpretation Comments Globulin (test code = Globulin) 3.7 2.7-4.2 [facility]2017-02-05 10:42:00 Test Item Value Reference Range Interpretation Comments Albumin Lvl (test code = Albumin Lvl) 1.8 3.5-5.0 [facility]2017-02-05 10:42:00 Test Item Value Reference Range Interpretation Comments Magnesium Lvl (test code = Magnesium 2.1 1.8-2.4 Lvl) [id number] 10:42:00 Test Item Value Reference Range Interpretation Comments Acanthocyte (test code = Acanthocyte) Slight [facility] [id number] 10:42:00 Test Item Value Reference Range Interpretation Comments Rouleaux (test code = Present *ABN*(07/26/16 Rouleaux) 4:42 AM) [facility] CampusDdkquhnEENDDTCFRQ6797-89-66 10:42:00 Test Item Value Reference Range Interpretation Comments Anisocyte (test code = 1+ *ABN*(07/26/16 4:42 Anisocyte) AM) [facility] [id number] 10:42:00 Test Item Value Reference Range Interpretation Comments Basophils # (test code 0.1 See_Comment [Aut omated message] The = Basophils #) system which generated this result tra nsmitted reference range : <=0.2. The reference r leo was not used to int erpret this result as normal/abnormal . [facility] CampusRaqxasoOLSXSVBTSY0304-10-99 10:42:00 Test Item Value Reference Range Interpretation Comments Large Plt (test code Moderate *ABN*(07/26/16 = Large Plt) 4:42 AM) [facility] 10:42:00 Test Item Value Reference Range Interpretation Comments C4 Complement (test code = C4 42 16-47 Complement) [facility]2017-02-05 10:42:00 Test Item Value Reference Range Interpretation Comments B/C Ratio (test code = B/C Ratio) 17 6-25 [facility]2017-02-05 10:42:00 Test Item Value Reference Range Interpretation Comments ALT (test code = ALT) 1232 See_Comment [Auto mated message] The system which ge nerated this result transmit rohit reference range : <=65. The reference range was not used to interpr et this result as reji l/abnormal. [facility]2017-02-05 10:42:00 Test Item Value Reference Range Interpretation Comments A/G Ratio (test code = A/G Ratio) 0.5 0.7-1.6 [facility]2017-02-05 10:42:00 Test Item Value Reference Range Interpretation Comments Bili Total (test code = Bili Total) 0.3 0.2-1.3 [facility]2017-02-05 10:42:00 Test Item Value Reference Range Interpretation Comments Alk Phos (test code = Alk Phos) 79 39-136 [facility]2017-02-05 10:42:00 Test Item Value Reference Range Interpretation Comments AST (test code = AST) 586 See_Comment [Auto mated message] The system which ge nerated this result transmit rohit reference range : <=37. The reference range was not used to interpr et this result as reji l/abnormal. [facility]2017-02-05 10:42:00 Test Item Value Reference Range Interpretation Comments Total Protein (test code = Total 5.5 6.4-8.4 Protein) [facility]2017-02-05 10:42:00 Test Item Value Reference Range Interpretation Comments Globulin (test code = Globulin) 3.7 2.7-4.2 [facility]2017-02-05 10:42:00 Test Item Value Reference Range Interpretation Comments Albumin Lvl (test code = Albumin Lvl) 1.8 3.5-5.0 [facility]2017-02-05 10:42:00 Test Item Value Reference Range Interpretation Comments Magnesium Lvl (test code = Magnesium 2.1 1.8-2.4 Lvl) [id number] 10:42:00 Test Item Value Reference Range Interpretation Comments Acanthocyte (test code = Acanthocyte) Slight [facility] Camp[id number] 10:42:00 Test Item Value Reference Range Interpretation Comments Rouleaux (test code = Present *ABN*(07/26/16 Rouleaux) 4:42 AM) [facility] CampusBrczbcsLQTLAAUWNN5215-02-02 10:42:00 Test Item Value Reference Range Interpretation Comments Anisocyte (test code = 1+ *ABN*(07/26/16 4:42 Anisocyte) AM) [facility] CampusTiftuusNRMAIVPWRA9791-67-29 10:42:00 Test Item Value Reference Range Interpretation Comments Basophils # (test code 0.1 See_Comment [Aut omated message] The = Basophils #) system which generated this result tra nsmitted reference range : <=0.2. The reference r leo was not used to int erpret this result as normal/abnormal . [facility] CampusOnqnojjIPGYCQKGQU2850-07-22 10:42:00 Test Item Value Reference Range Interpretation Comments Large Plt (test code Moderate *ABN*(07/26/16 = Large Plt) 4:42 AM) [facility]IpfvbakXHSWFKPHTC1006-69-50 10:42:00 Test Item Value Reference Range Interpretation Comments C4 Complement (test code = C4 42 16-47 Complement) [facility] AND [id number] 16:34:00 Test Item Value Reference Range Interpretation Comments UA Sq Epi (test code = UA Sq Epi) None Seen [facility] AND [id number] 16:34:00 Test Item Value Reference Range Interpretation Comments UA Waxy Cast (test code = UA Waxy Cast) 1 [facility] AND [id number] 16:34:00 Test Item Value Reference Range Interpretation Comments UA Hyal Cast (test 4 See_Comment [Automat ed message] The code = UA Hyal Cast) system which generated this result transmit rohit reference range : <=2. The reference range was not used to interpr et this result as reji l/abnormal. [facility] AND [id number] 16:34:00 Test Item Value Reference Range Interpretation Comments UA Bacteria (test code = UA Occasional /HPF Bacteria) [facility] AND [id number] 16:34:00 Test Item Value Reference Range Interpretation Comments UA Mucus (test code = UA Mucus) Few /LPF [facility] AND [id number] 16:34:00 Test Item Value Reference Range Interpretation Comments UA Amorph Destiny (test code = Occasional /HPF UA Amorph Destiny) [facility] AND [id number] 16:34:00 Test Item Value Reference Range Interpretation Comments UA Leuk Est (test Negative (07/25/16 10:34 code = UA Leuk Est) AM) [facility] AND [id number] 16:34:00 Test Item Value Reference Range Interpretation Comments UA Nitrite (test code Negative (07/25/16 10:34 = UA Nitrite) AM) [facility] AND [id number] 16:34:00 Test Item Value Reference Range Interpretation Comments UA RBC (test code = 2 See_Comment [Automa rohit message] The UA RBC) system which ge nerated this result transmit rohit reference range : <=2. The reference range was not used to interpr et this result as reji l/abnormal. [facility] AND [id number] 16:34:00 Test Item Value Reference Range Interpretation Comments UA WBC (test code = 6 See_Comment [Automa rohit message] The UA WBC) system which ge nerated this result transmit rohit reference range : <=5. The reference range was not used to interpr et this result as reji l/abnormal. [facility] AND [id number] 16:34:00 Test Item Value Reference Range Interpretation Comments UA Urobilinogen (test code = UA 2.0 0.1-1.0 Urobilinogen) [facility] AND [id number] 16:34:00 Test Item Value Reference Range Interpretation Comments UA Ketones (test code = UA Negative mg/dL Ketones) [facility] AND [id number] 16:34:00 Test Item Value Reference Range Interpretation Comments UA Glucose (test code = UA Glucose) 70 mg/dL [facility] AND [id number] 16:34:00 Test Item Value Reference Range Interpretation Comments UA Blood (test code = Negative (07/25/16 10:34 UA Blood) AM) [facility] AND [id number] 16:34:00 Test Item Value Reference Range Interpretation Comments UA Bili (test code = Negative *NA*(07/25/16 UA Bili) 10:34 AM) [facility] AND [id number] 16:34:00 Test Item Value Reference Range Interpretation Comments UA Protein (test code = UA >=300 mg/dL Protein) [facility] AND [id number] 16:34:00 Test Item Value Reference Range Interpretation Comments UA Spec Grav (test code = UA Spec Grav) 1.012 [facility] AND [id number] 16:34:00 Test Item Value Reference Range Interpretation Comments UA pH (test code = UA pH) 5.5 5.0-8.0 [facility] AND [id number] 16:34:00 Test Item Value Reference Range Interpretation Comments UA Turbidity (test code Slight *ABN*(07/25/16 = UA Turbidity) 10:34 AM) [facility] AND [id number] 16:34:00 Test Item Value Reference Range Interpretation Comments UA Color (test code = Dark Yellow *NA*(07/25/16 UA Color) 10:34 AM) [facility] AND [id number] 16:34:00 Test Item Value Reference Range Interpretation Comments UA Gran Cast (test code = UA Gran Cast) 9 [facility] [id number] 16:34:00 Test Item Value Reference Range Interpretation Comments U Sodium (test code = U Sodium) 30 [facility]2017-02-04 16:34:00 Test Item Value Reference Range Interpretation Comments U Prot/Creat (test code = U Prot/Creat) 3.1 [facility]2017-02-04 16:34:00 Test Item Value Reference Range Interpretation Comments U Protein (test code = U Protein) 420.9 [facility]2017-02-04 16:34:00 Test Item Value Reference Range Interpretation Comments U Creatinine (test code = U 136.00 Creatinine) [facility] AND [id number] 16:34:00 Test Item Value Reference Range Interpretation Comments UA Sq Epi (test code = UA Sq Epi) None Seen [facility] AND [id number] 16:34:00 Test Item Value Reference Range Interpretation Comments UA Waxy Cast (test code = UA Waxy Cast) 1 [facility] AND [id number] 16:34:00 Test Item Value Reference Range Interpretation Comments UA Hyal Cast (test 4 See_Comment [Automat ed message] The code = UA Hyal Cast) system which generated this result transmit rohit reference range : <=2. The reference range was not used to interpr et this result as reji l/abnormal. [facility] AND [id number] 16:34:00 Test Item Value Reference Range Interpretation Comments UA Bacteria (test code = UA Occasional /HPF Bacteria) [facility] AND [id number] 16:34:00 Test Item Value Reference Range Interpretation Comments UA Mucus (test code = UA Mucus) Few /LPF [facility] AND [id number] 16:34:00 Test Item Value Reference Range Interpretation Comments UA Amorph Destiny (test code = Occasional /HPF UA Amorph Destiny) [facility] AND [id number] 16:34:00 Test Item Value Reference Range Interpretation Comments UA Leuk Est (test Negative (07/25/16 10:34 code = UA Leuk Est) AM) [facility] AND [id number] 16:34:00 Test Item Value Reference Range Interpretation Comments UA Nitrite (test code Negative (07/25/16 10:34 = UA Nitrite) AM) [facility] AND [id number] 16:34:00 Test Item Value Reference Range Interpretation Comments UA RBC (test code = 2 See_Comment [Automa rohit message] The UA RBC) system which ge nerated this result transmit rohit reference range : <=2. The reference range was not used to interpr et this result as reji l/abnormal. [facility] AND [id number] 16:34:00 Test Item Value Reference Range Interpretation Comments UA WBC (test code = 6 See_Comment [Automa rohit message] The UA WBC) system which ge nerated this result transmit rohit reference range : <=5. The reference range was not used to interpr et this result as reji l/abnormal. [facility] AND [id number] 16:34:00 Test Item Value Reference Range Interpretation Comments UA Urobilinogen (test code = UA 2.0 0.1-1.0 Urobilinogen) [facility] AND [id number] 16:34:00 Test Item Value Reference Range Interpretation Comments UA Ketones (test code = UA Negative mg/dL Ketones) [facility] AND [id number] 16:34:00 Test Item Value Reference Range Interpretation Comments UA Glucose (test code = UA Glucose) 70 mg/dL [facility] AND [id number] 16:34:00 Test Item Value Reference Range Interpretation Comments UA Blood (test code = Negative (07/25/16 10:34 UA Blood) AM) [facility] AND [id number] 16:34:00 Test Item Value Reference Range Interpretation Comments UA Bili (test code = Negative *NA*(07/25/16 UA Bili) 10:34 AM) [facility] AND [id number] 16:34:00 Test Item Value Reference Range Interpretation Comments UA Protein (test code = UA >=300 mg/dL Protein) [facility] AND [id number] 16:34:00 Test Item Value Reference Range Interpretation Comments UA Spec Grav (test code = UA Spec Grav) 1.012 [facility] AND [id number] 16:34:00 Test Item Value Reference Range Interpretation Comments UA pH (test code = UA pH) 5.5 5.0-8.0 [facility] AND [id number] 16:34:00 Test Item Value Reference Range Interpretation Comments UA Turbidity (test code Slight *ABN*(07/25/16 = UA Turbidity) 10:34 AM) [facility] AND [id number] 16:34:00 Test Item Value Reference Range Interpretation Comments UA Color (test code = Dark Yellow *NA*(07/25/16 UA Color) 10:34 AM) [facility] AND [id number] 16:34:00 Test Item Value Reference Range Interpretation Comments UA Gran Cast (test code = UA Gran Cast) 9 [facility]2017-02-04 16:34:00 Test Item Value Reference Range Interpretation Comments U Sodium (test code = U Sodium) 30 [facility] [id number] 16:34:00 Test Item Value Reference Range Interpretation Comments U Prot/Creat (test code = U Prot/Creat) 3.1 [facility]2017-02-04 16:34:00 Test Item Value Reference Range Interpretation Comments U Protein (test code = U Protein) 420.9 [facility]2017-02-04 16:34:00 Test Item Value Reference Range Interpretation Comments U Creatinine (test code = U 136.00 Creatinine) [facility] AND [id number] 16:34:00 Test Item Value Reference Range Interpretation Comments UA Sq Epi (test code = UA Sq Epi) None Seen [facility] AND [id number] 16:34:00 Test Item Value Reference Range Interpretation Comments UA Waxy Cast (test code = UA Waxy Cast) 1 [facility] AND [id number] 16:34:00 Test Item Value Reference Range Interpretation Comments UA Hyal Cast (test 4 See_Comment [Automat ed message] The code = UA Hyal Cast) system which generated this result transmit rohit reference range : <=2. The reference range was not used to interpr et this result as reji l/abnormal. [facility] AND [id number] 16:34:00 Test Item Value Reference Range Interpretation Comments UA Bacteria (test code = UA Occasional /HPF Bacteria) [facility] AND [id number] 16:34:00 Test Item Value Reference Range Interpretation Comments UA Mucus (test code = UA Mucus) Few /LPF [facility] AND [id number] 16:34:00 Test Item Value Reference Range Interpretation Comments UA Amorph Destiny (test code = Occasional /HPF UA Amorph Destiny) [facility] AND [id number] 16:34:00 Test Item Value Reference Range Interpretation Comments UA Leuk Est (test Negative (07/25/16 10:34 code = UA Leuk Est) AM) [facility] AND [id number] 16:34:00 Test Item Value Reference Range Interpretation Comments UA Nitrite (test code Negative (07/25/16 10:34 = UA Nitrite) AM) [facility] AND [id number] 16:34:00 Test Item Value Reference Range Interpretation Comments UA RBC (test code = 2 See_Comment [Automa rohit message] The UA RBC) system which ge nerated this result transmit rohit reference range : <=2. The reference range was not used to interpr et this result as reji l/abnormal. [facility] AND [id number] 16:34:00 Test Item Value Reference Range Interpretation Comments UA WBC (test code = 6 See_Comment [Automa rohit message] The UA WBC) system which ge nerated this result transmit rohit reference range : <=5. The reference range was not used to interpr et this result as reji l/abnormal. [facility] AND [id number] 16:34:00 Test Item Value Reference Range Interpretation Comments UA Urobilinogen (test code = UA 2.0 0.1-1.0 Urobilinogen) [facility] AND [id number] 16:34:00 Test Item Value Reference Range Interpretation Comments UA Ketones (test code = UA Negative mg/dL Ketones) [facility] AND [id number] 16:34:00 Test Item Value Reference Range Interpretation Comments UA Glucose (test code = UA Glucose) 70 mg/dL [facility] AND [id number] 16:34:00 Test Item Value Reference Range Interpretation Comments UA Blood (test code = Negative (07/25/16 10:34 UA Blood) AM) [facility] AND [id number] 16:34:00 Test Item Value Reference Range Interpretation Comments UA Bili (test code = Negative *NA*(2/4/17 UA Bili) 10:34 AM) [facility] [id number] 16:34:00 Test Item Value Reference Range Interpretation Comments UA Protein (test code = UA >=300 mg/dL Protein) [facility] AND [id number] 16:34:00 Test Item Value Reference Range Interpretation Comments UA Spec Grav (test code = UA Spec Grav) 1.012 [facility] AND [id number] 16:34:00 Test Item Value Reference Range Interpretation Comments UA pH (test code = UA pH) 5.5 5.0-8.0 [facility] AND [id number] 16:34:00 Test Item Value Reference Range Interpretation Comments UA Turbidity (test code Slight *ABN*(07/25/16 = UA Turbidity) 10:34 AM) [facility] AND [id number] 16:34:00 Test Item Value Reference Range Interpretation Comments UA Color (test code = Dark Yellow *NA*(07/25/16 UA Color) 10:34 AM) [facility] AND [id number] 16:34:00 Test Item Value Reference Range Interpretation Comments UA Gran Cast (test code = UA Gran Cast) 9 [facility] [id number] 16:34:00 Test Item Value Reference Range Interpretation Comments U Sodium (test code = U Sodium) 30 [facility] [id number] 16:34:00 Test Item Value Reference Range Interpretation Comments U Prot/Creat (test code = U Prot/Creat) 3.1 [facility]2017-02-04 16:34:00 Test Item Value Reference Range Interpretation Comments U Protein (test code = U Protein) 420.9 [facility] [id number] 16:34:00 Test Item Value Reference Range Interpretation Comments U Creatinine (test code = U 136.00 Creatinine) [facility] AND [id number] 16:34:00 Test Item Value Reference Range Interpretation Comments UA Sq Epi (test code = UA Sq Epi) None Seen [facility] AND [id number] 16:34:00 Test Item Value Reference Range Interpretation Comments UA Waxy Cast (test code = UA Waxy Cast) 1 [facility] AND [id number] 16:34:00 Test Item Value Reference Range Interpretation Comments UA Hyal Cast (test 4 See_Comment [Automat ed message] The code = UA Hyal Cast) system which generated this result transmit rohit reference range : <=2. The reference range was not used to interpr et this result as reji l/abnormal. [facility] AND [id number] 16:34:00 Test Item Value Reference Range Interpretation Comments UA Bacteria (test code = UA Occasional /HPF Bacteria) [facility] AND [id number] 16:34:00 Test Item Value Reference Range Interpretation Comments UA Mucus (test code = UA Mucus) Few /LPF [facility] AND [id number] 16:34:00 Test Item Value Reference Range Interpretation Comments UA Amorph Destiny (test code = Occasional /HPF UA Amorph Destiny) [facility] AND [id number] 16:34:00 Test Item Value Reference Range Interpretation Comments UA Leuk Est (test Negative (07/25/16 10:34 code = UA Leuk Est) AM) [facility] AND [id number] 16:34:00 Test Item Value Reference Range Interpretation Comments UA Nitrite (test code Negative (07/25/16 10:34 = UA Nitrite) AM) [facility] AND [id number] 16:34:00 Test Item Value Reference Range Interpretation Comments UA RBC (test code = 2 See_Comment [Automa rohit message] The UA RBC) system which ge nerated this result transmit rohit reference range : <=2. The reference range was not used to interpr et this result as reji l/abnormal. [facility] AND [id number] 16:34:00 Test Item Value Reference Range Interpretation Comments UA WBC (test code = 6 See_Comment [Automa rohit message] The UA WBC) system which ge nerated this result transmit rohit reference range : <=5. The reference range was not used to interpr et this result as reji l/abnormal. [facility] AND [id number] 16:34:00 Test Item Value Reference Range Interpretation Comments UA Urobilinogen (test code = UA 2.0 0.1-1.0 Urobilinogen) [facility] AND [id number] 16:34:00 Test Item Value Reference Range Interpretation Comments UA Ketones (test code = UA Negative mg/dL Ketones) [facility] AND [id number] 16:34:00 Test Item Value Reference Range Interpretation Comments UA Glucose (test code = UA Glucose) 70 mg/dL [facility] AND [id number] 16:34:00 Test Item Value Reference Range Interpretation Comments UA Blood (test code = Negative (07/25/16 10:34 UA Blood) AM) [facility] AND [id number] 16:34:00 Test Item Value Reference Range Interpretation Comments UA Bili (test code = Negative *NA*(07/25/16 UA Bili) 10:34 AM) [facility] AND [id number] 16:34:00 Test Item Value Reference Range Interpretation Comments UA Protein (test code = UA >=300 mg/dL Protein) [facility] AND [id number] 16:34:00 Test Item Value Reference Range Interpretation Comments UA Spec Grav (test code = UA Spec Grav) 1.012 [facility] AND [id number] 16:34:00 Test Item Value Reference Range Interpretation Comments UA pH (test code = UA pH) 5.5 5.0-8.0 [facility] AND [id number] 16:34:00 Test Item Value Reference Range Interpretation Comments UA Turbidity (test code Slight *ABN*(07/25/16 = UA Turbidity) 10:34 AM) [facility] AND [id number] 16:34:00 Test Item Value Reference Range Interpretation Comments UA Color (test code = Dark Yellow *NA*(07/25/16 UA Color) 10:34 AM) [facility] AND [id number] 16:34:00 Test Item Value Reference Range Interpretation Comments UA Gran Cast (test code = UA Gran Cast) 9 [facility] [id number] 16:34:00 Test Item Value Reference Range Interpretation Comments U Sodium (test code = U Sodium) 30 [facility] [id number] 16:34:00 Test Item Value Reference Range Interpretation Comments U Prot/Creat (test code = U Prot/Creat) 3.1 [facility]2017-02-04 16:34:00 Test Item Value Reference Range Interpretation Comments U Protein (test code = U Protein) 420.9 [facility] [id number] 16:34:00 Test Item Value Reference Range Interpretation Comments U Creatinine (test code = U 136.00 Creatinine) [facility] AND [id number] 16:34:00 Test Item Value Reference Range Interpretation Comments UA Sq Epi (test code = UA Sq Epi) None Seen [facility] AND [id number] 16:34:00 Test Item Value Reference Range Interpretation Comments UA Waxy Cast (test code = UA Waxy Cast) 1 [facility] AND [id number] 16:34:00 Test Item Value Reference Range Interpretation Comments UA Hyal Cast (test 4 See_Comment [Automat ed message] The code = UA Hyal Cast) system which generated this result transmit rohit reference range : <=2. The reference range was not used to interpr et this result as reji l/abnormal. [facility] AND [id number] 16:34:00 Test Item Value Reference Range Interpretation Comments UA Bacteria (test code = UA Occasional /HPF Bacteria) [facility] AND [id number] 16:34:00 Test Item Value Reference Range Interpretation Comments UA Mucus (test code = UA Mucus) Few /LPF [facility] AND [id number] 16:34:00 Test Item Value Reference Range Interpretation Comments UA Amorph Destiny (test code = Occasional /HPF UA Amorph Destiny) [facility] AND [id number] 16:34:00 Test Item Value Reference Range Interpretation Comments UA Leuk Est (test Negative (07/25/16 10:34 code = UA Leuk Est) AM) [facility] AND [id number] 16:34:00 Test Item Value Reference Range Interpretation Comments UA Nitrite (test code Negative (07/25/16 10:34 = UA Nitrite) AM) [facility] AND [id number] 16:34:00 Test Item Value Reference Range Interpretation Comments UA RBC (test code = 2 See_Comment [Automa rohit message] The UA RBC) system which ge nerated this result transmit rohit reference range : <=2. The reference range was not used to interpr et this result as reji l/abnormal. [facility] AND [id number] 16:34:00 Test Item Value Reference Range Interpretation Comments UA WBC (test code = 6 See_Comment [Automa rohit message] The UA WBC) system which ge nerated this result transmit rhoit reference range : <=5. The reference range was not used to interpr et this result as reji l/abnormal. [facility] AND [id number] 16:34:00 Test Item Value Reference Range Interpretation Comments UA Urobilinogen (test code = UA 2.0 0.1-1.0 Urobilinogen) [facility] AND [id number] 16:34:00 Test Item Value Reference Range Interpretation Comments UA Ketones (test code = UA Negative mg/dL Ketones) [facility] AND [id number] 16:34:00 Test Item Value Reference Range Interpretation Comments UA Glucose (test code = UA Glucose) 70 mg/dL [facility] AND [id number] 16:34:00 Test Item Value Reference Range Interpretation Comments UA Blood (test code = Negative (07/25/16 10:34 UA Blood) AM) [facility] AND [id number] 16:34:00 Test Item Value Reference Range Interpretation Comments UA Bili (test code = Negative *NA*(07/25/16 UA Bili) 10:34 AM) [facility] AND [id number] 16:34:00 Test Item Value Reference Range Interpretation Comments UA Protein (test code = UA >=300 mg/dL Protein) [facility] AND [id number] 16:34:00 Test Item Value Reference Range Interpretation Comments UA Spec Grav (test code = UA Spec Grav) 1.012 [facility] AND [id number] 16:34:00 Test Item Value Reference Range Interpretation Comments UA pH (test code = UA pH) 5.5 5.0-8.0 [facility] AND [id number] 16:34:00 Test Item Value Reference Range Interpretation Comments UA Turbidity (test code Slight *ABN*(07/25/16 = UA Turbidity) 10:34 AM) [facility] AND [id number] 16:34:00 Test Item Value Reference Range Interpretation Comments UA Color (test code = Dark Yellow *NA*(07/25/16 UA Color) 10:34 AM) [facility] AND [id number] 16:34:00 Test Item Value Reference Range Interpretation Comments UA Gran Cast (test code = UA Gran Cast) 9 [facility]2017-02-04 16:34:00 Test Item Value Reference Range Interpretation Comments U Sodium (test code = U Sodium) 30 [facility]2017-02-04 16:34:00 Test Item Value Reference Range Interpretation Comments U Prot/Creat (test code = U Prot/Creat) 3.1 [facility]2017-02-04 16:34:00 Test Item Value Reference Range Interpretation Comments U Protein (test code = U Protein) 420.9 [facility]2017-02-04 16:34:00 Test Item Value Reference Range Interpretation Comments U Creatinine (test code = U 136.00 Creatinine) [facility]2017-02-04 08:55:00 Test Item Value Reference Range Interpretation Comments Magnesium Lvl (test code = Magnesium 2.0 1.8-2.4 Lvl) [facility]2017-02-04 08:55:00 Test Item Value Reference Range Interpretation Comments Phosphorus (test code = Phosphorus) 5.2 2.5-4.5 [facility]2017-02-04 08:55:00 Test Item Value Reference Range Interpretation Comments Magnesium Lvl (test code = Magnesium 2.0 1.8-2.4 Lvl) [facility]2017-02-04 08:55:00 Test Item Value Reference Range Interpretation Comments Phosphorus (test code = Phosphorus) 5.2 2.5-4.5 [facility]2017-02-04 08:55:00 Test Item Value Reference Range Interpretation Comments Magnesium Lvl (test code = Magnesium 2.0 1.8-2.4 Lvl) [facility]2017-02-04 08:55:00 Test Item Value Reference Range Interpretation Comments Phosphorus (test code = Phosphorus) 5.2 2.5-4.5 [facility]2017-02-04 08:55:00 Test Item Value Reference Range Interpretation Comments Magnesium Lvl (test code = Magnesium 2.0 1.8-2.4 Lvl) [facility]2017-02-04 08:55:00 Test Item Value Reference Range Interpretation Comments Phosphorus (test code = Phosphorus) 5.2 2.5-4.5 [facility]2017-02-04 08:55:00 Test Item Value Reference Range Interpretation Comments Magnesium Lvl (test code = Magnesium 2.0 1.8-2.4 Lvl) [facility]2017-02-04 08:55:00 Test Item Value Reference Range Interpretation Comments Phosphorus (test code = Phosphorus) 5.2 2.5-4.5 [facility] [id number] 17:29:00 Test Item Value Reference Range Interpretation Comments Troponin-I (test code 0.28 See_Comment [Auto mated message] The = Troponin-I) system which g enerated this result transmit rohit reference range : <=0.40. The reference r leo was not used to interpr et this result as reji l/abnormal. [facility] [id number] 17:29:00 Test Item Value Reference Range Interpretation Comments Total CK (test code = Total CK) 2616 12-191 [facility] [id number] 17:29:00 Test Item Value Reference Range Interpretation Comments Troponin-T (test code 0.144 See_Comment [Auto mated message] The = Troponin-T) system which g enerated this result transmit rohit reference range : <=0.100. The reference r leo was not used to interpr et this result as reji l/abnormal. [facility] [id number] 17:29:00 Test Item Value Reference Range Interpretation Comments CK MB Index (test 0.2 See_Comment [Automate d message] The code = CK MB Index) system w [facility] generated this result transmit rohit reference range : <=2.5. The reference range was not used to interpr et this result as reji l/abnormal. [facility] [id number] 17:29:00 Test Item Value Reference Range Interpretation Comments CK MB (test code = CK MB) 6.3 0.5-3.6 [facility] [id number] 17:29:00 Test Item Value Reference Range Interpretation Comments Troponin-I (test code 0.28 See_Comment [Auto mated message] The = Troponin-I) system which g enerated this result transmit rohit reference range : <=0.40. The reference r leo was not used to interpr et this result as reji l/abnormal. [facility] [employer]2017-02-03 17:29:00 Test Item Value Reference Range Interpretation Comments Total CK (test code = Total CK) 2615 [id number] 17:29:00 Test Item Value Reference Range Interpretation Comments Troponin-T (test code 0.144 See_Comment [Auto mated message] The = Troponin-T) system which g enerated this result transmit rohit reference range : <=0.100. The reference r leo was not used to interpr et this result as reji l/abnormal. [facility] 17:29:00 Test Item Value Reference Range Interpretation Comments CK MB Index (test 0.2 See_Comment [Automate d message] The code = CK MB Index) system w [facility] generated this result transmit rohit reference range : <=2.5. The reference range was not used to interpr et this result as reji l/abnormal. [facility] 17:29:00 Test Item Value Reference Range Interpretation Comments CK MB (test code = CK MB) 6.3 0.5-3.6 [facility] 17:29:00 Test Item Value Reference Range Interpretation Comments Troponin-I (test code 0.28 See_Comment [Auto mated message] The = Troponin-I) system which g enerated this result transmit rohit reference range : <=0.40. The reference r leo was not used to interpr et this result as reji l/abnormal. [facility] 17:29:00 Test Item Value Reference Range Interpretation Comments Total CK (test code = Total CK) [id number] [facility] 17:29:00 Test Item Value Reference Range Interpretation Comments Troponin-T (test code 0.144 See_Comment [Auto mated message] The = Troponin-T) system which g enerated this result transmit rohit reference range : <=0.100. The reference r leo was not used to interpr et this result as reji l/abnormal. [facility] [employer]2017-02-03 17:29:00 Test Item Value Reference Range Interpretation Comments CK MB Index (test 0.2 See_Comment [Automate d message] The code = CK MB Index) system w [employer] generated this result transmit rohit reference range : <=2.5. The reference range was not used to interpr et this result as reji l/abnormal. [facility] [employer]2017-02-03 17:29:00 Test Item Value Reference Range Interpretation Comments CK MB (test code = CK MB) 6.3 0.5-3.6 [facility] [id number] 17:29:00 Test Item Value Reference Range Interpretation Comments Troponin-I (test code 0.28 See_Comment [Auto mated message] The = Troponin-I) system which g enerated this result transmit rohit reference range : <=0.40. The reference r leo was not used to interpr et this result as reji l/abnormal. [facility] [id number] 17:29:00 Test Item Value Reference Range Interpretation Comments Total CK (test code = Total CK) 2616 12-191 [facility] 17:29:00 Test Item Value Reference Range Interpretation Comments Troponin-T (test code 0.144 See_Comment [Auto mated message] The = Troponin-T) system which g enerated this result transmit rohit reference range : <=0.100. The reference r leo was not used to interpr et this result as reji l/abnormal. [facility] 17:29:00 Test Item Value Reference Range Interpretation Comments CK MB Index (test 0.2 See_Comment [Automate d message] The code = CK MB Index) system w [employer] generated this result transmit rohit reference range : <=2.5. The reference range was not used to interpr et this result as reji l/abnormal. [facility] [employer]2017-02-03 17:29:00 Test Item Value Reference Range Interpretation Comments CK MB (test code = CK MB) 6.3 0.5-3.6 [facility] [employer]2017-02-03 17:29:00 Test Item Value Reference Range Interpretation Comments Troponin-I (test code 0.28 See_Comment [Auto mated message] The = Troponin-I) system which g enerated this result transmit rohit reference range : <=0.40. The reference r leo was not used to interpr et this result as reji l/abnormal. [facility] [id number] 17:29:00 Test Item Value Reference Range Interpretation Comments Total CK (test code = Total CK) 2616 12-191 [facility] [id number] 17:29:00 Test Item Value Reference Range Interpretation Comments Troponin-T (test code 0.144 See_Comment [Auto mated message] The = Troponin-T) system which g enerated this result transmit rohit reference range : <=0.100. The reference r leo was not used to interpr et this result as reji l/abnormal. [facility] [id number] 17:29:00 Test Item Value Reference Range Interpretation Comments CK MB Index (test 0.2 See_Comment [Automate d message] The code = CK MB Index) system w [facility] generated this result transmit rohit reference range : <=2.5. The reference range was not used to interpr et this result as reji l/abnormal. [facility] [id number] 17:29:00 Test Item Value Reference Range Interpretation Comments CK MB (test code = CK MB) 6.3 0.5-3.6 [facility] [id number] 11:20:00 Test Item Value Reference Range Interpretation Comments Troponin-I (test code 0.38 See_Comment [Auto mated message] The = Troponin-I) system which g enerated this result transmit rohit reference range : <=0.40. The reference r leo was not used to interpr et this result as reji l/abnormal. [facility] 11:20:00 Test Item Value Reference Range Interpretation Comments Troponin-T (test code 0.173 See_Comment [Auto mated message] The = Troponin-T) system which g enerated this result transmit rohit reference range : <=0.100. The reference r leo was not used to interpr et this result as reji l/abnormal. [facility] 11:20:00 Test Item Value Reference Range Interpretation Comments CK MB Index (test 0.2 See_Comment [Automate d message] The code = CK MB Index) system w [facility] generated this result transmit rohit reference range : <=2.5. The reference range was not used to interpr et this result as reji l/abnormal. [facility] [employer]2017-02-03 11:20:00 Test Item Value Reference Range Interpretation Comments CK MB (test code = CK MB) 5.6 0.5-3.6 [employer] [id number] 11:20:00 Test Item Value Reference Range Interpretation Comments Phosphorus (test code = Phosphorus) 5.5 2.5-4.5 [facility] [employer]2017-02-03 11:20:00 Test Item Value Reference Range Interpretation Comments Troponin-I (test code 0.38 See_Comment [Auto mated message] The = Troponin-I) system which g enerated this result transmit rohit reference range : <=0.40. The reference r leo was not used to interpr et this result as reji l/abnormal. [facility] [employer]2017-02-03 11:20:00 Test Item Value Reference Range Interpretation Comments Troponin-T (test code 0.173 See_Comment [Auto mated message] The = Troponin-T) system which g enerated this result transmit rohit reference range : <=0.100. The reference r leo was not used to interpr et this result as reji l/abnormal. [facility] [employer]2017-02-03 11:20:00 Test Item Value Reference Range Interpretation Comments CK MB Index (test 0.2 See_Comment [Automate d message] The code = CK MB Index) system w [employer] generated this result transmit rohit reference range : <=2.5. The reference range was not used to interpr et this result as reji l/abnormal. [facility] [employer]2017-02-03 11:20:00 Test Item Value Reference Range Interpretation Comments CK MB (test code = CK MB) 5.6 0.5-3.6 [facility] [employer] [id number] 11:20:00 Test Item Value Reference Range Interpretation Comments Phosphorus (test code = Phosphorus) 5.5 2.5-4.5 [facility] [employer]2017-02-03 11:20:00 Test Item Value Reference Range Interpretation Comments Troponin-I (test code 0.38 See_Comment [Auto mated message] The = Troponin-I) system which g enerated this result transmit rohit reference range : <=0.40. The reference r leo was not used to interpr et this result as reji l/abnormal. [facility] [id number] 11:20:00 Test Item Value Reference Range Interpretation Comments Troponin-T (test code 0.173 See_Comment [Auto mated message] The = Troponin-T) system which g enerated this result transmit rohit reference range : <=0.100. The reference r leo was not used to interpr et this result as reji l/abnormal. [facility] [id number] 11:20:00 Test Item Value Reference Range Interpretation Comments CK MB Index (test 0.2 See_Comment [Automate d message] The code = CK MB Index) system w [facility] generated this result transmit rohit reference range : <=2.5. The reference range was not used to interpr et this result as reji l/abnormal. [facility] [employer]2017-02-03 11:20:00 Test Item Value Reference Range Interpretation Comments CK MB (test code = CK MB) 5.6 0.5-3.6 [facility] [id number] 11:20:00 Test Item Value Reference Range Interpretation Comments Phosphorus (test code = Phosphorus) 5.5 2.5-4.5 [facility]2017-[facility]-03 11:20:00 Test Item Value Reference Range Interpretation Comments Troponin-I (test code 0.38 See_Comment [Auto mated message] The = Troponin-I) system which g enerated this result transmit rohit reference range : <=0.40. The reference r leo was not used to interpr et this result as reji l/abnormal. [facility] [employer]2017-02-03 11:20:00 Test Item Value Reference Range Interpretation Comments Troponin-T (test code 0.173 See_Comment [Auto mated message] The = Troponin-T) system which g enerated this result transmit rohit reference range : <=0.100. The reference r leo was not used to interpr et this result as reji l/abnormal. [facility] [employer]2017-02-03 11:20:00 Test Item Value Reference Range Interpretation Comments CK MB Index (test 0.2 See_Comment [Automate d message] The code = CK MB Index) system w [facility] generated this result transmit rohit reference range : <=2.5. The reference range was not used to interpr et this result as reji l/abnormal. [facility] [employer]2017-02-03 11:20:00 Test Item Value Reference Range Interpretation Comments CK MB (test code = CK MB) 5.6 0.5-3.6 [facility] [employer] [id number] 11:20:00 Test Item Value Reference Range Interpretation Comments Phosphorus (test code = Phosphorus) 5.5 2.5-4.5 [facility] [employer]2017-02-03 11:20:00 Test Item Value Reference Range Interpretation Comments Troponin-I (test code 0.38 See_Comment [Auto mated message] The = Troponin-I) system which g enerated this result transmit rohit reference range : <=0.40. The reference r leo was not used to interpr et this result as reji l/abnormal. [facility] [employer]2017-02-03 11:20:00 Test Item Value Reference Range Interpretation Comments Troponin-T (test code 0.173 See_Comment [Auto mated message] The = Troponin-T) system which g enerated this result transmit rohit reference range : <=0.100. The reference r leo was not used to interpr et this result as reji l/abnormal. [facility] [employer]2017-02-03 11:20:00 Test Item Value Reference Range Interpretation Comments CK MB Index (test 0.2 See_Comment [Automate d message] The code = CK MB Index) system w [employer] generated this result transmit rohit reference range : <=2.5. The reference range was not used to interpr et this result as reji l/abnormal. [facility] [employer]2017-02-03 11:20:00 Test Item Value Reference Range Interpretation Comments CK MB (test code = CK MB) 5.6 0.5-3.6 [facility] [employer] [id number] 11:20:00 Test Item Value Reference Range Interpretation Comments Phosphorus (test code = Phosphorus) 5.5 2.5-4.5 [facility] [employer]2017-02-03 06:18:00 Test Item Value Reference Range Interpretation Comments BNP (test code = BNP) 701 [facility] 06:18:00 Test Item Value Reference Range Interpretation Comments BNP (test code = BNP) 701 [facility]-03 06:18:00 Test Item Value Reference Range Interpretation Comments BNP (test code = BNP) 701 [facility] [employer]2017-02-03 06:18:00 Test Item Value Reference Range Interpretation Comments BNP (test code = BNP) 701 [facility] [employer]2017-02-03 06:18:00 Test Item Value Reference Range Interpretation Comments BNP (test code = BNP) 701 [facility]-03 04:59:27 Test Item Value Reference Range Interpretation Comments Troponin-I (test code 0.57 See_Comment [Auto mated message] The = Troponin-I) system which g enerated this result transmit rohit reference range : <=0.40. The reference r leo was not used to interpr et this result as reji l/abnormal. [facility] 04:59:27 Test Item Value Reference Range Interpretation Comments Troponin-I (test code 0.57 See_Comment [Auto mated message] The = Troponin-I) system which g enerated this result transmit rohit reference range : <=0.40. The reference r leo was not used to interpr et this result as reji l/abnormal. [facility] 04:59:27 Test Item Value Reference Range Interpretation Comments Troponin-I (test code 0.57 See_Comment [Auto mated message] The = Troponin-I) system which g enerated this result transmit rohit reference range : <=0.40. The reference r leo was not used to interpr et this result as reji l/abnormal. [facility] 04:59:27 Test Item Value Reference Range Interpretation Comments Troponin-I (test code 0.57 See_Comment [Auto mated message] The = Troponin-I) system which g enerated this result transmit rohit reference range : <=0.40. The reference r leo was not used to interpr et this result as reji l/abnormal. [facility] [id number] 04:59:27 Test Item Value Reference Range Interpretation Comments Troponin-I (test code 0.57 See_Comment [Auto mated message] The = Troponin-I) system which g enerated this result transmit rohit reference range : <=0.40. The reference r leo was not used to interpr et this result as reji l/abnormal. [facility] [id number] 10:22:00 Test Item Value Reference Range Interpretation Comments BNP (test code = BNP) 526 [facility] [id number] 10:22:00 Test Item Value Reference Range Interpretation Comments Magnesium Lvl (test code = Magnesium 2.1 1.8-2.4 Lvl) [facility] [id number] 10:22:00 Test Item Value Reference Range Interpretation Comments Glucose Lvl (test code = Glucose Lvl) 117 70-99 [facility] [id number] 10:22:00 Test Item Value Reference Range Interpretation Comments BUN (test code = BUN) 41 7-22 [facility] [id number] 10:22:00 Test Item Value Reference Range Interpretation Comments Creatinine Lvl (test code = Creatinine 2.00 0.50-1.40 Lvl) [facility] [id number] 10:22:00 Test Item Value Reference Range Interpretation Comments Calcium Lvl (test code = Calcium Lvl) 9.0 8.5-10.5 [facility] [id number] 10:22:00 Test Item Value Reference Range Interpretation Comments Chloride Lvl (test code = Chloride Lvl) 102 95-109 [facility] [id number] 10:22:00 Test Item Value Reference Range Interpretation Comments CO2 (test code = CO2) 33 24-32 [facility] [id number] 10:22:00 Test Item Value Reference Range Interpretation Comments Sodium Lvl (test code = Sodium Lvl) 144 135-145 [facility] [id number] 10:22:00 Test Item Value Reference Range Interpretation Comments Potassium Lvl (test code = Potassium 4.0 3.5-5.1 Lvl) [facility]2016-12-26 10:22:00 Test Item Value Reference Range Interpretation Comments eGFR (test code = eGFR) 32 [facility]2016-12-26 10:22:00 Test Item Value Reference Range Interpretation Comments AGAP (test code = AGAP) 13.0 10.0-20.0 [facility]2016-12-26 10:22:00 Test Item Value Reference Range Interpretation Comments Phosphorus (test code = Phosphorus) 4.6 2.5-4.5 [facility] CampusCodwzusECLABMYTZN5919-91-55 10:22:00 Test Item Value Reference Range Interpretation Comments RBC (test code = RBC) 3.68 4.20-5.40 [facility] CampusRaapduwPPYHFFMXHJ5008-95-70 10:22:00 Test Item Value Reference Range Interpretation Comments Hgb (test code = Hgb) 9.9 12.0-16.0 [facility] CampusVckmcpmAMJPCQFCYO3999-60-74 10:22:00 Test Item Value Reference Range Interpretation Comments MCH (test code = MCH) 26.8 pg 27.0-31.0 [facility] CampusYetkpkiWYJSPKRPKN8895-97-51 10:22:00 Test Item Value Reference Range Interpretation Comments MCHC (test code = MCHC) 34.2 32.0-36.0 [facility] CampusTucghzxTHOLQNPETD5234-23-93 10:22:00 Test Item Value Reference Range Interpretation Comments MCV (test code = MCV) 78.3 80.0-98.0 [facility] CampusEllpafpVOLHJXDSTC7479-23-83 10:22:00 Test Item Value Reference Range Interpretation Comments Hct (test code = Hct) 28.8 36.0-48.0 [facility] CampusHlkptlwBSGLAPRYHX4192-77-65 10:22:00 Test Item Value Reference Range Interpretation Comments Platelet (test code = Platelet) 191 133-450 [facility] CampusGfmyvxoKULAVISHIB4331-07-57 10:22:00 Test Item Value Reference Range Interpretation Comments MPV (test code = MPV) 9.5 7.4-10.4 [facility] CampusLckuaaeZGSSFUVUHW5622-15-43 10:22:00 Test Item Value Reference Range Interpretation Comments RDW (test code = RDW) 15.3 11.5-14.5 [place] 296196-12-26 10:22:00 Test Item Value Reference Range Interpretation Comments WBC (test code = WBC) 5.6 3.7-10.4 [facility] CampusHpalfckVSNNZQIPAD0430-97-63 10:22:00 Test Item Value Reference Range Interpretation Comments Eosinophils # (test code 0.5 See_Comment [A utomated message] The = Eosinophils #) system whic h generated this result tra nsmitted reference range : <=0.5. The reference r leo was not used to int erpret this result as normal/abnormal . [facility] CampusFfomzdgPZHTARUWRZ9145-59-60 10:22:00 Test Item Value Reference Range Interpretation Comments Microcyte (test code = 1+ *ABN*(06/15/16 Microcyte) 4:22 AM) [facility] CampusLrppoakIQDPBPYTQA5962-07-70 10:22:00 Test Item Value Reference Range Interpretation Comments Basophils # (test code 0.1 See_Comment [Aut omated message] The = Basophils #) system which generated this result tra nsmitted reference range : <=0.2. The reference r leo was not used to int erpret this result as normal/abnormal . [facility] CampusKxlfzbcTRZCGMFARI4572-17-62 10:22:00 Test Item Value Reference Range Interpretation Comments Lymphocytes (test code = Lymphocytes) 33.5 20.0-40.0 [facility] CampusSelciflQXUTIWGTWZ8756-74-33 10:22:00 Test Item Value Reference Range Interpretation Comments Segs (test code = Segs) 47.6 45.0-75.0 [facility] CampusWzmkozyLOWZTWFDKD1466-48-68 10:22:00 Test Item Value Reference Range Interpretation Comments Monocytes (test code = Monocytes) 8.4 2.0-12.0 [facility] CampusBjliwcjLRLUBWTPFD2192-33-34 10:22:00 Test Item Value Reference Range Interpretation Comments Eosinophils (test code = 9.4 See_Comment [A utomated message] The Eosinophils) system which ge nerated this result tra nsmitted reference range : <=4.0. The reference r elo was not used to int erpret this result as normal/abnormal . [facility] CampusNzepefsOEAUEPHNTZ1811-37-02 10:22:00 Test Item Value Reference Range Interpretation Comments Segs-Bands # (test code = Segs-Bands #) 2.6 1.5-8.1 [facility] CampusHdmrdrjADQGWSLQJD5487-95-34 10:22:00 Test Item Value Reference Range Interpretation Comments Lymphocytes # (test code = Lymphocytes 1.9 1.0-5.5 #) [facility] CampusVbxcliwSDZRFCBWAL3513-31-50 10:22:00 Test Item Value Reference Range Interpretation Comments Basophils (test code = 1.1 See_Comment [Aut omated message] The Basophils) system which ge nerated this result tra nsmitted reference range : <=1.0. The reference r leo was not used to int erpret this result as normal/abnormal . [facility] CampusCamvwmqWRMSVHOSIQ3102-50-03 10:22:00 Test Item Value Reference Range Interpretation Comments Monocytes # (test code 0.5 See_Comment [Aut omated message] The = Monocytes #) system which generated this result tra nsmitted reference range : <=0.8. The reference r leo was not used to int erpret this result as normal/abnormal . [facility] QPEJJVO8464-85-99 10:22:00 Test Item Value Reference Range Interpretation Comments BNP (test code = BNP) 526 [facility]2016-12-26 10:22:00 Test Item Value Reference Range Interpretation Comments Magnesium Lvl (test code = Magnesium 2.1 1.8-2.4 Lvl) [facility]2016-12-26 10:22:00 Test Item Value Reference Range Interpretation Comments Glucose Lvl (test code = Glucose Lvl) 117 70-99 [facility]2016-12-26 10:22:00 Test Item Value Reference Range Interpretation Comments BUN (test code = BUN) 41 7-22 [facility]2016-12-26 10:22:00 Test Item Value Reference Range Interpretation Comments Creatinine Lvl (test code = Creatinine 2.00 0.50-1.40 Lvl) [facility]2016-12-26 10:22:00 Test Item Value Reference Range Interpretation Comments Calcium Lvl (test code = Calcium Lvl) 9.0 8.5-10.5 [facility]2016-12-26 10:22:00 Test Item Value Reference Range Interpretation Comments Chloride Lvl (test code = Chloride Lvl) 102 95-109 [facility] HospitalSolarNOW KJLEE2659-21-17 10:22:00 Test Item Value Reference Range Interpretation Comments CO2 (test code = CO2) 33 24-32 [facility]2016-12-26 10:22:00 Test Item Value Reference Range Interpretation Comments Sodium Lvl (test code = Sodium Lvl) 144 135-145 [facility]2016-12-26 10:22:00 Test Item Value Reference Range Interpretation Comments Potassium Lvl (test code = Potassium 4.0 3.5-5.1 Lvl) [facility]2016-12-26 10:22:00 Test Item Value Reference Range Interpretation Comments eGFR (test code = eGFR) 32 [facility]2016-12-26 10:22:00 Test Item Value Reference Range Interpretation Comments AGAP (test code = AGAP) 13.0 10.0-20.0 [facility]2016-12-26 10:22:00 Test Item Value Reference Range Interpretation Comments Phosphorus (test code = Phosphorus) 4.6 2.5-4.5 [facility] CampusXkbcjyuIJQYHWNACP5316-53-48 10:22:00 Test Item Value Reference Range Interpretation Comments RBC (test code = RBC) 3.68 4.20-5.40 [facility] CampusQuotjhyQFCQOKAOIH0329-00-80 10:22:00 Test Item Value Reference Range Interpretation Comments Hgb (test code = Hgb) 9.9 12.0-16.0 [facility] CampusWdfhkgrGTGWLQXWVD0592-58-10 10:22:00 Test Item Value Reference Range Interpretation Comments MCH (test code = MCH) 26.8 pg 27.0-31.0 [facility] CampusXuexfixEMDBCZGENX0452-36-86 10:22:00 Test Item Value Reference Range Interpretation Comments MCHC (test code = MCHC) 34.2 32.0-36.0 [facility] CampusCfvolakQKGOFAXVSO4117-52-94 10:22:00 Test Item Value Reference Range Interpretation Comments MCV (test code = MCV) 78.3 80.0-98.0 [facility] CampusInzndyfONZKKJPJNO1910-84-86 10:22:00 Test Item Value Reference Range Interpretation Comments Hct (test code = Hct) 28.8 36.0-48.0 [facility] CampusUuuayorDRNQNDYHRS2547-04-73 10:22:00 Test Item Value Reference Range Interpretation Comments Platelet (test code = Platelet) 191 133-450 [facility] CampusTvuvjifNRMZHKWMJS9956-06-75 10:22:00 Test Item Value Reference Range Interpretation Comments MPV (test code = MPV) 9.5 7.4-10.4 [facility] CampusQpkwxwmLLADPOXGSN4575-58-01 10:22:00 Test Item Value Reference Range Interpretation Comments RDW (test code = RDW) 15.3 11.5-14.5 [facility] CampusTrokiuzBJJCPDAJCL9559-24-33 10:22:00 Test Item Value Reference Range Interpretation Comments WBC (test code = WBC) 5.6 3.7-10.4 [facility] CampusEenzufpUMUUGDFYLJ3227-80-43 10:22:00 Test Item Value Reference Range Interpretation Comments Eosinophils # (test code 0.5 See_Comment [A utomated message] The = Eosinophils #) system whic h generated this result tra nsmitted reference range : <=0.5. The reference r leo was not used to int erpret this result as normal/abnormal . [facility] CampusVveicvyXVEZIYBLUY3488-22-83 10:22:00 Test Item Value Reference Range Interpretation Comments Microcyte (test code = 1+ *ABN*(06/15/16 Microcyte) 4:22 AM) [facility] CampusGgqpsqdSEVVYERRPW6745-44-92 10:22:00 Test Item Value Reference Range Interpretation Comments Basophils # (test code 0.1 See_Comment [Aut omated message] The = Basophils #) system which generated this result tra nsmitted reference range : <=0.2. The reference r leo was not used to int erpret this result as normal/abnormal . [facility] CampusOkgxhfuYIFJEERAOR4022-04-15 10:22:00 Test Item Value Reference Range Interpretation Comments Lymphocytes (test code = Lymphocytes) 33.5 20.0-40.0 [facility] CampusRcoyrdnNXLVSFGXZZ5289-13-05 10:22:00 Test Item Value Reference Range Interpretation Comments Segs (test code = Segs) 47.6 45.0-75.0 [facility] CampusGoarspaDTGXCTLSMZ7292-97-61 10:22:00 Test Item Value Reference Range Interpretation Comments Monocytes (test code = Monocytes) 8.4 2.0-12.0 [facility] CampusJfmtgkyTZCRCZUAXX5410-24-00 10:22:00 Test Item Value Reference Range Interpretation Comments Eosinophils (test code = 9.4 See_Comment [A utomated message] The Eosinophils) system which ge nerated this result tra nsmitted reference range : <=4.0. The reference r leo was not used to int erpret this result as normal/abnormal . [facility] CampusIenkwlrQDQKKWRUCO1688-56-12 10:22:00 Test Item Value Reference Range Interpretation Comments Segs-Bands # (test code = Segs-Bands #) 2.6 1.5-8.1 [facility] CampusTfkfxmzCVKYUTBHYZ2913-06-58 10:22:00 Test Item Value Reference Range Interpretation Comments Lymphocytes # (test code = Lymphocytes 1.9 1.0-5.5 #) [facility] CampusIxousypPEARFLISNJ9657-73-96 10:22:00 Test Item Value Reference Range Interpretation Comments Basophils (test code = 1.1 See_Comment [Aut omated message] The Basophils) system which ge nerated this result tra nsmitted reference range : <=1.0. The reference r leo was not used to int erpret this result as normal/abnormal . [facility] CampusXwgknujIPIYULKJVO6257-67-18 10:22:00 Test Item Value Reference Range Interpretation Comments Monocytes # (test code 0.5 See_Comment [Aut omated message] The = Monocytes #) system which generated this result tra nsmitted reference range : <=0.8. The reference r leo was not used to int erpret this result as normal/abnormal . [facility]DIASCENS[facility] HOSPITALEHVZNLF5060-75-80 10:22:00 Test Item Value Reference Range Interpretation Comments BNP (test code = BNP) 526 [facility]2016-12-26 10:22:00 Test Item Value Reference Range Interpretation Comments Magnesium Lvl (test code = Magnesium 2.1 1.8-2.4 Lvl) [facility]2016-12-26 10:22:00 Test Item Value Reference Range Interpretation Comments Glucose Lvl (test code = Glucose Lvl) 117 70-99 [facility]2016-12-26 10:22:00 Test Item Value Reference Range Interpretation Comments BUN (test code = BUN) 41 7-22 [facility]2016-12-26 10:22:00 Test Item Value Reference Range Interpretation Comments Creatinine Lvl (test code = Creatinine 2.00 0.50-1.40 Lvl) [facility]2016-12-26 10:22:00 Test Item Value Reference Range Interpretation Comments Calcium Lvl (test code = Calcium Lvl) 9.0 8.5-10.5 [facility]2016-12-26 10:22:00 Test Item Value Reference Range Interpretation Comments Chloride Lvl (test code = Chloride Lvl) 102 95-109 [facility]2016-12-26 10:22:00 Test Item Value Reference Range Interpretation Comments CO2 (test code = CO2) 33 24-32 [facility]2016-12-26 10:22:00 Test Item Value Reference Range Interpretation Comments Sodium Lvl (test code = Sodium Lvl) 144 135-145 [facility]2016-12-26 10:22:00 Test Item Value Reference Range Interpretation Comments Potassium Lvl (test code = Potassium 4.0 3.5-5.1 Lvl) [facility]2016-12-26 10:22:00 Test Item Value Reference Range Interpretation Comments eGFR (test code = eGFR) 32 [facility]2016-12-26 10:22:00 Test Item Value Reference Range Interpretation Comments AGAP (test code = AGAP) 13.0 10.0-20.0 [facility]2016-12-26 10:22:00 Test Item Value Reference Range Interpretation Comments Phosphorus (test code = Phosphorus) 4.6 2.5-4.5 [facility] CampusZilkygwMXCMHIZKTQ2915-63-11 10:22:00 Test Item Value Reference Range Interpretation Comments RBC (test code = RBC) 3.68 4.20-5.40 [facility] CampusTlteunlAGQMOZPHWD7139-56-55 10:22:00 Test Item Value Reference Range Interpretation Comments Hgb (test code = Hgb) 9.9 12.0-16.0 [facility] CampusVsdylwhQPKIKXMOYH0287-09-23 10:22:00 Test Item Value Reference Range Interpretation Comments MCH (test code = MCH) 26.8 pg 27.0-31.0 [facility] CampusDqlvvpnFUXKUCHAXF4103-49-32 10:22:00 Test Item Value Reference Range Interpretation Comments MCHC (test code = MCHC) 34.2 32.0-36.0 [facility] CampusTebkcxiEKTJVNGUNH5431-29-15 10:22:00 Test Item Value Reference Range Interpretation Comments MCV (test code = MCV) 78.3 80.0-98.0 [facility] CampusUzeebluMNAWJOOFRV7311-85-00 10:22:00 Test Item Value Reference Range Interpretation Comments Hct (test code = Hct) 28.8 36.0-48.0 [facility] CampusFezwwlsPLRUSZIYSM3601-94-01 10:22:00 Test Item Value Reference Range Interpretation Comments Platelet (test code = Platelet) 191 133-450 [facility] CampusNoskabgVIGJKXKMEH4774-66-78 10:22:00 Test Item Value Reference Range Interpretation Comments MPV (test code = MPV) 9.5 7.4-10.4 [facility] CampusGqtkzfeJPEAXEGKCQ2146-95-41 10:22:00 Test Item Value Reference Range Interpretation Comments RDW (test code = RDW) 15.3 11.5-14.5 [facility] CampusMzxlttsPPQUVHGSHP4789-79-26 10:22:00 Test Item Value Reference Range Interpretation Comments WBC (test code = WBC) 5.6 3.7-10.4 [facility] CampusGaqocsaAFCLCVMAXC5576-68-85 10:22:00 Test Item Value Reference Range Interpretation Comments Eosinophils # (test code 0.5 See_Comment [A utomated message] The = Eosinophils #) system whic h generated this result tra nsmitted reference range : <=0.5. The reference r leo was not used to int erpret this result as normal/abnormal . [facility] CampusDuxnasyXAXCJCUUNK6535-87-05 10:22:00 Test Item Value Reference Range Interpretation Comments Microcyte (test code = 1+ *ABN*(06/15/16 Microcyte) 4:22 AM) [facility] CampusZicwqkaIWZUYEYXIT2595-16-71 10:22:00 Test Item Value Reference Range Interpretation Comments Basophils # (test code 0.1 See_Comment [Aut omated message] The = Basophils #) system which generated this result tra nsmitted reference range : <=0.2. The reference r leo was not used to int erpret this result as normal/abnormal . [facility] CampusKrzbojxRKTNJIPUKS0980-90-69 10:22:00 Test Item Value Reference Range Interpretation Comments Lymphocytes (test code = Lymphocytes) 33.5 20.0-40.0 [facility] CampusBhqlftyJZJMFADRIZ3693-90-10 10:22:00 Test Item Value Reference Range Interpretation Comments Segs (test code = Segs) 47.6 45.0-75.0 [facility] CampusVcsjjdyPIKZKBSRHY9530-86-95 10:22:00 Test Item Value Reference Range Interpretation Comments Monocytes (test code = Monocytes) 8.4 2.0-12.0 [facility] HospitalTdpxqotXMWNFZYOOW4448-93-08 10:22:00 Test Item Value Reference Range Interpretation Comments Eosinophils (test code = 9.4 See_Comment [A utomated message] The Eosinophils) system which ge nerated this result tra nsmitted reference range : <=4.0. The reference r leo was not used to int erpret this result as normal/abnormal . [facility] HospitalHkufatfGAUZRFWKNW1559-21-19 10:22:00 Test Item Value Reference Range Interpretation Comments Segs-Bands # (test code = Segs-Bands #) 2.6 1.5-8.1 [facility] HospitalOcrbkipRCCDLSOHCL3752-66-39 10:22:00 Test Item Value Reference Range Interpretation Comments Lymphocytes # (test code = Lymphocytes 1.9 1.0-5.5 #) [facility] CampusCsvnanaMRIOAYJWSE5304-89-29 10:22:00 Test Item Value Reference Range Interpretation Comments Basophils (test code = 1.1 See_Comment [Aut omated message] The Basophils) system which ge nerated this result tra nsmitted reference range : <=1.0. The reference r leo was not used to int erpret this result as normal/abnormal . [facility] CampusBmbsrnvLJMVJHVJTF4046-52-86 10:22:00 Test Item Value Reference Range Interpretation Comments Monocytes # (test code 0.5 See_Comment [Aut omated message] The = Monocytes #) system which generated this result tra nsmitted reference range : <=0.8. The reference r leo was not used to int erpret this result as normal/abnormal . [facility]CARD[facility] MIXAZDX4660-32-21 10:22:00 Test Item Value Reference Range Interpretation Comments BNP (test code = BNP) 526 [facility] HospitalCHEM TOJWG7162-96-45 10:22:00 Test Item Value Reference Range Interpretation Comments Magnesium Lvl (test code = Magnesium 2.1 1.8-2.4 Lvl) [facility] HospitalCHEM DLHNH4083-31-13 10:22:00 Test Item Value Reference Range Interpretation Comments Glucose Lvl (test code = Glucose Lvl) 117 70-99 [facility] HospitalSolarNOW OJPBW1050-23-15 10:22:00 Test Item Value Reference Range Interpretation Comments BUN (test code = BUN) 41 7-22 [facility]2016-12-26 10:22:00 Test Item Value Reference Range Interpretation Comments Creatinine Lvl (test code = Creatinine 2.00 0.50-1.40 Lvl) [facility]2016-12-26 10:22:00 Test Item Value Reference Range Interpretation Comments Calcium Lvl (test code = Calcium Lvl) 9.0 8.5-10.5 [facility]2016-12-26 10:22:00 Test Item Value Reference Range Interpretation Comments Chloride Lvl (test code = Chloride Lvl) 102 95-109 [facility]2016-12-26 10:22:00 Test Item Value Reference Range Interpretation Comments CO2 (test code = CO2) 33 24-32 [facility]2016-12-26 10:22:00 Test Item Value Reference Range Interpretation Comments Sodium Lvl (test code = Sodium Lvl) 144 135-145 [facility]2016-12-26 10:22:00 Test Item Value Reference Range Interpretation Comments Potassium Lvl (test code = Potassium 4.0 3.5-5.1 Lvl) [facility]2016-12-26 10:22:00 Test Item Value Reference Range Interpretation Comments eGFR (test code = eGFR) 32 [facility]2016-12-26 10:22:00 Test Item Value Reference Range Interpretation Comments AGAP (test code = AGAP) 13.0 10.0-20.0 [facility]2016-12-26 10:22:00 Test Item Value Reference Range Interpretation Comments Phosphorus (test code = Phosphorus) 4.6 2.5-4.5 [facility] CampusRielpveZRNSPBDIXS4519-24-86 10:22:00 Test Item Value Reference Range Interpretation Comments RBC (test code = RBC) 3.68 4.20-5.40 [facility] CampusFyozqauFKWVRQBZRB0785-69-21 10:22:00 Test Item Value Reference Range Interpretation Comments Hgb (test code = Hgb) 9.9 12.0-16.0 [facility] CampusEdjwxbzIEHQZOZEMP2301-24-03 10:22:00 Test Item Value Reference Range Interpretation Comments MCH (test code = MCH) 26.8 pg 27.0-31.0 [facility] CampusOakqddmKWHGGSUTAN9448-06-57 10:22:00 Test Item Value Reference Range Interpretation Comments MCHC (test code = MCHC) 34.2 32.0-36.0 [facility] CampusKcevjjjIDSGELHAST9589-76-85 10:22:00 Test Item Value Reference Range Interpretation Comments MCV (test code = MCV) 78.3 80.0-98.0 [facility] CampusUwskkufGUTYHGZTUP6760-56-73 10:22:00 Test Item Value Reference Range Interpretation Comments Hct (test code = Hct) 28.8 36.0-48.0 [facility] CampusCxzoyufFPIHXCYFLD6963-41-23 10:22:00 Test Item Value Reference Range Interpretation Comments Platelet (test code = Platelet) 191 133-450 [facility] CampusDvshptbWQGNYTVFSE7091-59-52 10:22:00 Test Item Value Reference Range Interpretation Comments MPV (test code = MPV) 9.5 7.4-10.4 [facility] CampusHfqhvqjHXTMDMMOPA0610-81-88 10:22:00 Test Item Value Reference Range Interpretation Comments RDW (test code = RDW) 15.3 11.5-14.5 [facility] CampusVdyhagvDSMOYQHRVG2379-59-17 10:22:00 Test Item Value Reference Range Interpretation Comments WBC (test code = WBC) 5.6 3.7-10.4 [facility] CampusEcwiajgHOIQPFJXLN9672-34-48 10:22:00 Test Item Value Reference Range Interpretation Comments Eosinophils # (test code 0.5 See_Comment [A utomated message] The = Eosinophils #) system whic h generated this result tra nsmitted reference range : <=0.5. The reference r leo was not used to int erpret this result as normal/abnormal . [facility] CampusHxylfxmHHJUSPSTLQ8550-30-21 10:22:00 Test Item Value Reference Range Interpretation Comments Microcyte (test code = 1+ *ABN*(06/15/16 Microcyte) 4:22 AM) [facility] CampusZtccmyoZVUZATSFVV9382-14-89 10:22:00 Test Item Value Reference Range Interpretation Comments Basophils # (test code 0.1 See_Comment [Aut omated message] The = Basophils #) system which generated this result tra nsmitted reference range : <=0.2. The reference r leo was not used to int erpret this result as normal/abnormal . [facility] CampusTdnqlflFNDJDCBJHA1860-16-88 10:22:00 Test Item Value Reference Range Interpretation Comments Lymphocytes (test code = Lymphocytes) 33.5 20.0-40.0 [facility] CampusJhcfcosZDAEWZGVGP9739-32-46 10:22:00 Test Item Value Reference Range Interpretation Comments Segs (test code = Segs) 47.6 45.0-75.0 [facility] CampusKuiahggRZTIXXBISS9842-04-12 10:22:00 Test Item Value Reference Range Interpretation Comments Monocytes (test code = Monocytes) 8.4 2.0-12.0 [facility] CampusVbqbyozKRQSWJXVKI3117-11-56 10:22:00 Test Item Value Reference Range Interpretation Comments Eosinophils (test code = 9.4 See_Comment [A utomated message] The Eosinophils) system which ge nerated this result tra nsmitted reference range : <=4.0. The reference r leo was not used to int erpret this result as normal/abnormal . [facility] CampusDblhtpjWMAINZJGVL9766-83-88 10:22:00 Test Item Value Reference Range Interpretation Comments Segs-Bands # (test code = Segs-Bands #) 2.6 1.5-8.1 [facility] CampusZhhxxzoVCDZRUUJWE0149-29-51 10:22:00 Test Item Value Reference Range Interpretation Comments Lymphocytes # (test code = Lymphocytes 1.9 1.0-5.5 #) [facility] CampusMuuqxngTBRGGODOVR0007-23-57 10:22:00 Test Item Value Reference Range Interpretation Comments Basophils (test code = 1.1 See_Comment [Aut omated message] The Basophils) system which ge nerated this result tra nsmitted reference range : <=1.0. The reference r leo was not used to int erpret this result as normal/abnormal . [facility] CampusArtrbftEPYKQYPKEP1175-32-06 10:22:00 Test Item Value Reference Range Interpretation Comments Monocytes # (test code 0.5 See_Comment [Aut omated message] The = Monocytes #) system which generated this result tra nsmitted reference range : <=0.8. The reference r leo was not used to int erpret this result as normal/abnormal . [facility]:22:00 Test Item Value Reference Range Interpretation Comments BNP (test code = BNP) 526 [facility] [id number] 10:22:00 Test Item Value Reference Range Interpretation Comments Magnesium Lvl (test code = Magnesium 2.1 1.8-2.4 Lvl) [facility]2016-12-26 10:22:00 Test Item Value Reference Range Interpretation Comments Glucose Lvl (test code = Glucose Lvl) 117 70-99 [facility]2016-12-26 10:22:00 Test Item Value Reference Range Interpretation Comments BUN (test code = BUN) 41 7-22 [facility]2016-12-26 10:22:00 Test Item Value Reference Range Interpretation Comments Creatinine Lvl (test code = Creatinine 2.00 0.50-1.40 Lvl) [facility]2016-12-26 10:22:00 Test Item Value Reference Range Interpretation Comments Calcium Lvl (test code = Calcium Lvl) 9.0 8.5-10.5 [facility]2016-12-26 10:22:00 Test Item Value Reference Range Interpretation Comments Chloride Lvl (test code = Chloride Lvl) 102 95-109 [facility]2016-12-26 10:22:00 Test Item Value Reference Range Interpretation Comments CO2 (test code = CO2) 33 24-32 [facility]2016-12-26 10:22:00 Test Item Value Reference Range Interpretation Comments Sodium Lvl (test code = Sodium Lvl) 144 135-145 [facility]2016-12-26 10:22:00 Test Item Value Reference Range Interpretation Comments Potassium Lvl (test code = Potassium 4.0 3.5-5.1 Lvl) [facility]2016-12-26 10:22:00 Test Item Value Reference Range Interpretation Comments eGFR (test code = eGFR) 32 [facility]2016-12-26 10:22:00 Test Item Value Reference Range Interpretation Comments AGAP (test code = AGAP) 13.0 10.0-20.0 [facility]2016-12-26 10:22:00 Test Item Value Reference Range Interpretation Comments Phosphorus (test code = Phosphorus) 4.6 2.5-4.5 [facility]IzqvcxwWSVFLYYSWH0078-56-22 10:22:00 Test Item Value Reference Range Interpretation Comments RBC (test code = RBC) 3.68 4.20-5.40 [facility] CampusBbrxwtjHPUUTATZOE4769-22-51 10:22:00 Test Item Value Reference Range Interpretation Comments Hgb (test code = Hgb) 9.9 12.0-16.0 [facility] CampusGlnsdzmCZDXVHTXZP0086-42-33 10:22:00 Test Item Value Reference Range Interpretation Comments MCH (test code = MCH) 26.8 pg 27.0-31.0 [facility] CampusLbbmphxCJWPBVBTBA1902-13-36 10:22:00 Test Item Value Reference Range Interpretation Comments MCHC (test code = MCHC) 34.2 32.0-36.0 [facility] CampusDvwxmcjPVPDKLYKNB1718-99-30 10:22:00 Test Item Value Reference Range Interpretation Comments MCV (test code = MCV) 78.3 80.0-98.0 [facility] CampusXimilplJEHKGLAYPT7918-44-03 10:22:00 Test Item Value Reference Range Interpretation Comments Hct (test code = Hct) 28.8 36.0-48.0 [facility] CampusOrjvedvFLJBIMHPUW5432-77-06 10:22:00 Test Item Value Reference Range Interpretation Comments Platelet (test code = Platelet) 191 133-450 [facility] CampusAulkdbqZBPWGPXOIJ7857-79-53 10:22:00 Test Item Value Reference Range Interpretation Comments MPV (test code = MPV) 9.5 7.4-10.4 [facility] CampusHvtvutnOGOIKWTZZA5977-48-61 10:22:00 Test Item Value Reference Range Interpretation Comments RDW (test code = RDW) 15.3 11.5-14.5 [facility] CampusLizxgeiBNGNMNOVNP1497-66-12 10:22:00 Test Item Value Reference Range Interpretation Comments WBC (test code = WBC) 5.6 3.7-10.4 [facility] CampusUjwsndfFAGNDBIPGX1146-56-50 10:22:00 Test Item Value Reference Range Interpretation Comments Eosinophils # (test code 0.5 See_Comment [A utomated message] The = Eosinophils #) system whic h generated this result tra nsmitted reference range : <=0.5. The reference r leo was not used to int erpret this result as normal/abnormal . [facility] CampusVdyjmvkJYWLWBITDC2603-71-50 10:22:00 Test Item Value Reference Range Interpretation Comments Microcyte (test code = 1+ *ABN*(06/15/16 Microcyte) 4:22 AM) [facility] CampusZghbrjmXRLPQHGVWC3531-80-26 10:22:00 Test Item Value Reference Range Interpretation Comments Basophils # (test code 0.1 See_Comment [Aut omated message] The = Basophils #) system which generated this result tra nsmitted reference range : <=0.2. The reference r leo was not used to int erpret this result as normal/abnormal . [facility] CampusKkeaeoyWJOVYCGDMQ8956-13-20 10:22:00 Test Item Value Reference Range Interpretation Comments Lymphocytes (test code = Lymphocytes) 33.5 20.0-40.0 [facility] CampusIdccywnTIYKTWGVRS7430-82-24 10:22:00 Test Item Value Reference Range Interpretation Comments Segs (test code = Segs) 47.6 45.0-75.0 [facility] CampusFodqirpQZIXXJDCHY4233-94-19 10:22:00 Test Item Value Reference Range Interpretation Comments Monocytes (test code = Monocytes) 8.4 2.0-12.0 [facility] CampusVmhcnsiDASXXVKXBK6336-34-57 10:22:00 Test Item Value Reference Range Interpretation Comments Eosinophils (test code = 9.4 See_Comment [A utomated message] The Eosinophils) system which ge nerated this result tra nsmitted reference range : <=4.0. The reference r leo was not used to int erpret this result as normal/abnormal . [facility] CampusKgchsdeMHFJKHBIDM3692-55-80 10:22:00 Test Item Value Reference Range Interpretation Comments Segs-Bands # (test code = Segs-Bands #) 2.6 1.5-8.1 [facility] CampusNadjyyhPPLNKFFANK2324-28-09 10:22:00 Test Item Value Reference Range Interpretation Comments Lymphocytes # (test code = Lymphocytes 1.9 1.0-5.5 #) [facility] CampusZkcocrfZCFRLUAWMT2383-96-79 10:22:00 Test Item Value Reference Range Interpretation Comments Basophils (test code = 1.1 See_Comment [Aut omated message] The Basophils) system which ge nerated this result tra nsmitted reference range : <=1.0. The reference r leo was not used to int erpret this result as normal/abnormal . [facility] CampusFwgdxxmWSAHUKABYB2881-55-66 10:22:00 Test Item Value Reference Range Interpretation Comments Monocytes # (test code 0.5 See_Comment [Aut omated message] The = Monocytes #) system which generated this result tra nsmitted reference range : <=0.8. The reference r leo was not used to int erpret this result as normal/abnormal . [facility]2016-12-25 11:03:00 Test Item Value Reference Range Interpretation Comments Phosphorus (test code = Phosphorus) 4.8 2.5-4.5 [facility]2016-12-25 11:03:00 Test Item Value Reference Range Interpretation Comments Magnesium Lvl (test code = Magnesium 2.0 1.8-2.4 Lvl) [facility]2016-12-25 11:03:00 Test Item Value Reference Range Interpretation Comments eGFR (test code = eGFR) 32 [facility]2016-12-25 11:03:00 Test Item Value Reference Range Interpretation Comments Chloride Lvl (test code = Chloride Lvl) 101 95-109 [facility]2016-12-25 11:03:00 Test Item Value Reference Range Interpretation Comments Potassium Lvl (test code = Potassium 4.4 3.5-5.1 Lvl) [facility]2016-12-25 11:03:00 Test Item Value Reference Range Interpretation Comments BUN (test code = BUN) 37 7-22 [facility]2016-12-25 11:03:00 Test Item Value Reference Range Interpretation Comments Glucose Lvl (test code = Glucose Lvl) 119 70-99 [facility]2016-12-25 11:03:00 Test Item Value Reference Range Interpretation Comments Creatinine Lvl (test code = Creatinine 2.00 0.50-1.40 Lvl) [facility]2016-12-25 11:03:00 Test Item Value Reference Range Interpretation Comments Sodium Lvl (test code = Sodium Lvl) 142 135-145 [facility]2016-12-25 11:03:00 Test Item Value Reference Range Interpretation Comments Calcium Lvl (test code = Calcium Lvl) 8.7 8.5-10.5 [facility]2016-12-25 11:03:00 Test Item Value Reference Range Interpretation Comments CO2 (test code = CO2) 32 24-32 [facility]2016-12-25 11:03:00 Test Item Value Reference Range Interpretation Comments AGAP (test code = AGAP) 13.4 10.0-20.[facility] HospitalRitzwwgZNSIXPJBAJ8900-34-17 11:03:00 Test Item Value Reference Range Interpretation Comments Eosinophils (test code = 10.3 See_Comment [A utomated message] The Eosinophils) system which ge nerated this result tra nsmitted reference range : <=4.0. The reference r leo was not used to int erpret this result as normal/abnormal . [facility] CampusEctygrqOWFFRCFIQH6695-22-66 11:03:00 Test Item Value Reference Range Interpretation Comments Basophils # (test code 0.1 See_Comment [Aut omated message] The = Basophils #) system which generated this result tra nsmitted reference range : <=0.2. The reference r leo was not used to int erpret this result as normal/abnormal . [facility] CampusGjopwgkWEGGWTTBIM6956-76-68 11:03:00 Test Item Value Reference Range Interpretation Comments Eosinophils # (test code 0.5 See_Comment [A utomated message] The = Eosinophils #) system whic h generated this result tra nsmitted reference range : <=0.5. The reference r leo was not used to int erpret this result as normal/abnormal . [facility] CampusMwyabqhRISEYQYVYR2630-91-45 11:03:00 Test Item Value Reference Range Interpretation Comments Monocytes # (test code 0.5 See_Comment [Aut omated message] The = Monocytes #) system which generated this result tra nsmitted reference range : <=0.8. The reference r leo was not used to int erpret this result as normal/abnormal . [facility] CampusQbqeseeQQFQXJNYMB9654-86-41 11:03:00 Test Item Value Reference Range Interpretation Comments Segs-Bands # (test code = Segs-Bands #) 2.1 1.5-8.1 [facility] CampusOghugtnWJCJCCMWFP1806-00-89 11:03:00 Test Item Value Reference Range Interpretation Comments Basophils (test code = 1.2 See_Comment [Aut omated message] The Basophils) system which ge nerated this result tra nsmitted reference range : <=1.0. The reference r leo was not used to int erpret this result as normal/abnormal . [facility] CampusJfpptuzNLJKGVECHY7536-14-40 11:03:00 Test Item Value Reference Range Interpretation Comments Lymphocytes # (test code = Lymphocytes 1.9 1.0-5.5 #) [facility] CampusZtbgnibLTRMVTPUYT8339-16-62 11:03:00 Test Item Value Reference Range Interpretation Comments Segs (test code = Segs) 42.5 45.0-75.0 [facility] CampusSkblmmeKUDWMBOIQS1257-33-08 11:03:00 Test Item Value Reference Range Interpretation Comments Lymphocytes (test code = Lymphocytes) 37.0 20.0-40.0 [facility] CampusSdgqhohGAJZKFHAQW6689-23-77 11:03:00 Test Item Value Reference Range Interpretation Comments Monocytes (test code = Monocytes) 9.0 2.0-12.0 [facility] CampusUzxeynoIMBGGIGDBY3164-90-98 11:03:00 Test Item Value Reference Range Interpretation Comments MPV (test code = MPV) 9.8 7.4-10.4 [facility] CampusHkcbrskVUVJZVTGXS7250-29-01 11:03:00 Test Item Value Reference Range Interpretation Comments WBC (test code = WBC) 5.0 3.7-10.4 [facility] CampusFkzpruuJDRMUKLKCS3785-02-44 11:03:00 Test Item Value Reference Range Interpretation Comments RBC (test code = RBC) 3.57 4.20-5.40 [facility] CampusMostmygINSLQRSEXZ4073-36-13 11:03:00 Test Item Value Reference Range Interpretation Comments Hgb (test code = Hgb) 9.4 12.0-16.0 [facility] CampusAvdnefcPVTKGZPCJP1640-91-32 11:03:00 Test Item Value Reference Range Interpretation Comments Hct (test code = Hct) 28.5 36.0-48.0 [facility] CampusEythdgsEGEHGOEIHP1166-26-61 11:03:00 Test Item Value Reference Range Interpretation Comments Platelet (test code = Platelet) 183 133-450 [facility] CampusMwkitvfCVDVFBPXVM0198-24-48 11:03:00 Test Item Value Reference Range Interpretation Comments MCV (test code = MCV) 79.9 80.0-98.0 [facility] CampusKeopyfmWHDYYDJLFE8161-01-33 11:03:00 Test Item Value Reference Range Interpretation Comments MCH (test code = MCH) 26.3 pg 27.0-31.0 [facility] CampusIzjaclyBCRPHMYCNB7262-06-79 11:03:00 Test Item Value Reference Range Interpretation Comments MCHC (test code = MCHC) 33.0 32.0-36.0 [facility] CampusFnxgxtyWPBRIIRTFJ4713-60-86 11:03:00 Test Item Value Reference Range Interpretation Comments RDW (test code = RDW) 15.9 11.5-14.5 [facility]2016-12-25 11:03:00 Test Item Value Reference Range Interpretation Comments Phosphorus (test code = Phosphorus) 4.8 2.5-4.5 [facility]2016-12-25 11:03:00 Test Item Value Reference Range Interpretation Comments Magnesium Lvl (test code = Magnesium 2.0 1.8-2.4 Lvl) [facility]2016-12-25 11:03:00 Test Item Value Reference Range Interpretation Comments eGFR (test code = eGFR) 32 [facility]2016-12-25 11:03:00 Test Item Value Reference Range Interpretation Comments Chloride Lvl (test code = Chloride Lvl) 101 95-109 [facility]2016-12-25 11:03:00 Test Item Value Reference Range Interpretation Comments Potassium Lvl (test code = Potassium 4.4 3.5-5.1 Lvl) [facility]2016-12-25 11:03:00 Test Item Value Reference Range Interpretation Comments BUN (test code = BUN) 37 7-22 [facility]2016-12-25 11:03:00 Test Item Value Reference Range Interpretation Comments Glucose Lvl (test code = Glucose Lvl) 119 70-99 [facility]2016-12-25 11:03:00 Test Item Value Reference Range Interpretation Comments Creatinine Lvl (test code = Creatinine 2.00 0.50-1.40 Lvl) [facility]2016-12-25 11:03:00 Test Item Value Reference Range Interpretation Comments Sodium Lvl (test code = Sodium Lvl) 142 135-145 [facility]2016-12-25 11:03:00 Test Item Value Reference Range Interpretation Comments Calcium Lvl (test code = Calcium Lvl) 8.7 8.5-10.5 [facility]2016-12-25 11:03:00 Test Item Value Reference Range Interpretation Comments CO2 (test code = CO2) 32 24-32 [facility]2016-12-25 11:03:00 Test Item Value Reference Range Interpretation Comments AGAP (test code = AGAP) 13.4 10.0-20.0 [facility] HospitalKzzeyvaCILXEADUPH2309-08-21 11:03:00 Test Item Value Reference Range Interpretation Comments Eosinophils (test code = 10.3 See_Comment [A utomated message] The Eosinophils) system which ge nerated this result tra nsmitted reference range : <=4.0. The reference r leo was not used to int erpret this result as normal/abnormal . [facility] CampusRujvcfhHDBKBEMXOA4612-39-72 11:03:00 Test Item Value Reference Range Interpretation Comments Basophils # (test code 0.1 See_Comment [Aut omated message] The = Basophils #) system which generated this result tra nsmitted reference range : <=0.2. The reference r leo was not used to int erpret this result as normal/abnormal . [facility] CampusXtoblhcKLSRFTIJVP5627-73-73 11:03:00 Test Item Value Reference Range Interpretation Comments Eosinophils # (test code 0.5 See_Comment [A utomated message] The = Eosinophils #) system whic h generated this result tra nsmitted reference range : <=0.5. The reference r leo was not used to int erpret this result as normal/abnormal . [facility] CampusCqfcwffRTEODNUXKT4322-48-60 11:03:00 Test Item Value Reference Range Interpretation Comments Monocytes # (test code 0.5 See_Comment [Aut omated message] The = Monocytes #) system which generated this result tra nsmitted reference range : <=0.8. The reference r leo was not used to int erpret this result as normal/abnormal . [facility] CampusRdjrntdKTLCVTAZPX6699-31-95 11:03:00 Test Item Value Reference Range Interpretation Comments Segs-Bands # (test code = Segs-Bands #) 2.1 1.5-8.1 [facility] CampusSvdlrqsYYJMHDCPSD6904-51-70 11:03:00 Test Item Value Reference Range Interpretation Comments Basophils (test code = 1.2 See_Comment [Aut omated message] The Basophils) system which ge nerated this result tra nsmitted reference range : <=1.0. The reference r leo was not used to int erpret this result as normal/abnormal . [facility] CampusAoeigahBWCUWKCXLM9795-58-02 11:03:00 Test Item Value Reference Range Interpretation Comments Lymphocytes # (test code = Lymphocytes 1.9 1.0-5.5 #) [facility] CampusVpkuqjvVAEGNENMZC2283-66-97 11:03:00 Test Item Value Reference Range Interpretation Comments Segs (test code = Segs) 42.5 45.0-75.0 [facility] CampusGqsvtywKKOABHWJWN4136-78-13 11:03:00 Test Item Value Reference Range Interpretation Comments Lymphocytes (test code = Lymphocytes) 37.0 20.0-40.0 [facility] CampusPfvepnyUEVKUZVXTC0024-04-74 11:03:00 Test Item Value Reference Range Interpretation Comments Monocytes (test code = Monocytes) 9.0 2.0-12.0 [facility] CampusUnirdhdSAALRSKXUP1124-31-09 11:03:00 Test Item Value Reference Range Interpretation Comments MPV (test code = MPV) 9.8 7.4-10.4 [facility] CampusNxsqdgsXFOWYVAZTA8700-14-54 11:03:00 Test Item Value Reference Range Interpretation Comments WBC (test code = WBC) 5.0 3.7-10.4 [facility] CampusHacvxdnYZUZVOAZVX2050-95-72 11:03:00 Test Item Value Reference Range Interpretation Comments RBC (test code = RBC) 3.57 4.20-5.40 [facility] CampusTkupsrsAHXOQMGYJW6744-85-43 11:03:00 Test Item Value Reference Range Interpretation Comments Hgb (test code = Hgb) 9.4 12.0-16.0 [facility] CampusIplfvosPVOEUHITJV6063-07-37 11:03:00 Test Item Value Reference Range Interpretation Comments Hct (test code = Hct) 28.5 36.0-48.0 [facility] CampusPuxujalOYVTOUOILK8476-85-01 11:03:00 Test Item Value Reference Range Interpretation Comments Platelet (test code = Platelet) 183 133-450 [facility] CampusRmkbxgnBTXZNKJXBH5970-08-62 11:03:00 Test Item Value Reference Range Interpretation Comments MCV (test code = MCV) 79.9 80.0-98.0 [facility] CampusWepohloTMJZHHIMXI7541-22-06 11:03:00 Test Item Value Reference Range Interpretation Comments MCH (test code = MCH) 26.3 pg 27.0-31.0 [facility] CampusZlfuslaPTERKTDKOO2699-09-44 11:03:00 Test Item Value Reference Range Interpretation Comments MCHC (test code = MCHC) 33.0 32.0-36.0 [facility] CampusJsdqnknAUFNTOQMGK8594-07-59 11:03:00 Test Item Value Reference Range Interpretation Comments RDW (test code = RDW) 15.9 11.5-14.5 [facility]2016-12-25 11:03:00 Test Item Value Reference Range Interpretation Comments Phosphorus (test code = Phosphorus) 4.8 2.5-4.5 [facility]2016-12-25 11:03:00 Test Item Value Reference Range Interpretation Comments Magnesium Lvl (test code = Magnesium 2.0 1.8-2.4 Lvl) [facility]2016-12-25 11:03:00 Test Item Value Reference Range Interpretation Comments eGFR (test code = eGFR) 32 [facility]2016-12-25 11:03:00 Test Item Value Reference Range Interpretation Comments Chloride Lvl (test code = Chloride Lvl) 101 95-109 [facility]2016-12-25 11:03:00 Test Item Value Reference Range Interpretation Comments Potassium Lvl (test code = Potassium 4.4 3.5-5.1 Lvl) [facility]2016-12-25 11:03:00 Test Item Value Reference Range Interpretation Comments BUN (test code = BUN) 37 7-22 [facility]2016-12-25 11:03:00 Test Item Value Reference Range Interpretation Comments Glucose Lvl (test code = Glucose Lvl) 119 70-99 [facility]2016-12-25 11:03:00 Test Item Value Reference Range Interpretation Comments Creatinine Lvl (test code = Creatinine 2.00 0.50-1.40 Lvl) [facility]2016-12-25 11:03:00 Test Item Value Reference Range Interpretation Comments Sodium Lvl (test code = Sodium Lvl) 142 135-145 [facility]2016-12-25 11:03:00 Test Item Value Reference Range Interpretation Comments Calcium Lvl (test code = Calcium Lvl) 8.7 8.5-10.5 [facility]2016-12-25 11:03:00 Test Item Value Reference Range Interpretation Comments CO2 (test code = CO2) 32 24-32 [facility]2016-12-25 11:03:00 Test Item Value Reference Range Interpretation Comments AGAP (test code = AGAP) 13.4 10.0-20.0 [facility] HospitalFngexqlPEAGJJBARA3371-49-00 11:03:00 Test Item Value Reference Range Interpretation Comments Eosinophils (test code = 10.3 See_Comment [A utomated message] The Eosinophils) system which ge nerated this result tra nsmitted reference range : <=4.0. The reference r leo was not used to int erpret this result as normal/abnormal . [facility] CampusFybetzxIGYCPUUZVH2294-72-10 11:03:00 Test Item Value Reference Range Interpretation Comments Basophils # (test code 0.1 See_Comment [Aut omated message] The = Basophils #) system which generated this result tra nsmitted reference range : <=0.2. The reference r leo was not used to int erpret this result as normal/abnormal . [facility] CampusJniwiisEUTQGMKJAT3870-97-27 11:03:00 Test Item Value Reference Range Interpretation Comments Eosinophils # (test code 0.5 See_Comment [A utomated message] The = Eosinophils #) system whic h generated this result tra nsmitted reference range : <=0.5. The reference r leo was not used to int erpret this result as normal/abnormal . [facility] CampusZmidqkqDLPWJTMQFG8800-93-54 11:03:00 Test Item Value Reference Range Interpretation Comments Monocytes # (test code 0.5 See_Comment [Aut omated message] The = Monocytes #) system which generated this result tra nsmitted reference range : <=0.8. The reference r leo was not used to int erpret this result as normal/abnormal . [facility] CampusWdtuyewMSAPZMPNYF4839-84-29 11:03:00 Test Item Value Reference Range Interpretation Comments Segs-Bands # (test code = Segs-Bands #) 2.1 1.5-8.1 [facility] CampusSkipzovKFEDBGTQHE6271-37-29 11:03:00 Test Item Value Reference Range Interpretation Comments Basophils (test code = 1.2 See_Comment [Aut omated message] The Basophils) system which ge nerated this result tra nsmitted reference range : <=1.0. The reference r leo was not used to int erpret this result as normal/abnormal . [facility] CampusXleehqoOIQZUCQNOW8644-69-19 11:03:00 Test Item Value Reference Range Interpretation Comments Lymphocytes # (test code = Lymphocytes 1.9 1.0-5.5 #) [facility] CampusHbfolplRVOAGDPBGB0352-79-65 11:03:00 Test Item Value Reference Range Interpretation Comments Segs (test code = Segs) 42.5 45.0-75.0 [facility] CampusJvhlpdkPOUSKNPHDQ3122-58-25 11:03:00 Test Item Value Reference Range Interpretation Comments Lymphocytes (test code = Lymphocytes) 37.0 20.0-40.0 [facility] CampusKpmjhhaNXUSXXXRCX1290-54-71 11:03:00 Test Item Value Reference Range Interpretation Comments Monocytes (test code = Monocytes) 9.0 2.0-12.0 [facility] CampusFzpvohlMTNEDSJPZP7363-23-90 11:03:00 Test Item Value Reference Range Interpretation Comments MPV (test code = MPV) 9.8 7.4-10.4 [facility] CampusSeoribfMEBUWEMWWF0170-83-45 11:03:00 Test Item Value Reference Range Interpretation Comments WBC (test code = WBC) 5.0 3.7-10.4 [facility] CampusImnyvgiKPGHLNUDTI7787-77-58 11:03:00 Test Item Value Reference Range Interpretation Comments RBC (test code = RBC) 3.57 4.20-5.40 [facility] CampusMadfbrcMKOQHKARBP8311-73-83 11:03:00 Test Item Value Reference Range Interpretation Comments Hgb (test code = Hgb) 9.4 12.0-16.0 [facility] CampusVmnluazBNSFGNRTDW0669-93-45 11:03:00 Test Item Value Reference Range Interpretation Comments Hct (test code = Hct) 28.5 36.0-48.0 [facility]QpphrrlVCWRFGTMBQ8432-58-04 11:03:00 Test Item Value Reference Range Interpretation Comments Platelet (test code = Platelet) 183 133-450 [facility] CampusZicfapaOELZDKPWVX8654-44-17 11:03:00 Test Item Value Reference Range Interpretation Comments MCV (test code = MCV) 79.9 80.0-98.0 [facility] CampusTtauwnhVIVRMQVSTI1278-51-20 11:03:00 Test Item Value Reference Range Interpretation Comments MCH (test code = MCH) 26.3 pg 27.0-31.0 [facility] CampusXtqgaglLVEBLSGHNP5295-37-81 11:03:00 Test Item Value Reference Range Interpretation Comments MCHC (test code = MCHC) 33.0 32.0-36.0 [facility] CampusUphcevfCOFBQFMQRY1040-09-41 11:03:00 Test Item Value Reference Range Interpretation Comments RDW (test code = RDW) 15.9 11.5-14.5 [facility]2016-12-25 11:03:00 Test Item Value Reference Range Interpretation Comments Phosphorus (test code = Phosphorus) 4.8 2.5-4.5 [facility]2016-12-25 11:03:00 Test Item Value Reference Range Interpretation Comments Magnesium Lvl (test code = Magnesium 2.0 1.8-2.4 Lvl) [facility]2016-12-25 11:03:00 Test Item Value Reference Range Interpretation Comments eGFR (test code = eGFR) 32 [facility]2016-12-25 11:03:00 Test Item Value Reference Range Interpretation Comments Chloride Lvl (test code = Chloride Lvl) 101 95-109 [facility]2016-12-25 11:03:00 Test Item Value Reference Range Interpretation Comments Potassium Lvl (test code = Potassium 4.4 3.5-5.1 Lvl) [facility]2016-12-25 11:03:00 Test Item Value Reference Range Interpretation Comments BUN (test code = BUN) 37 7-22 [facility]2016-12-25 11:03:00 Test Item Value Reference Range Interpretation Comments Glucose Lvl (test code = Glucose Lvl) 119 70-99 [facility]2016-12-25 11:03:00 Test Item Value Reference Range Interpretation Comments Creatinine Lvl (test code = Creatinine 2.00 0.50-1.40 Lvl) [facility]2016-12-25 11:03:00 Test Item Value Reference Range Interpretation Comments Sodium Lvl (test code = Sodium Lvl) 142 135-145 [facility]2016-12-25 11:03:00 Test Item Value Reference Range Interpretation Comments Calcium Lvl (test code = Calcium Lvl) 8.7 8.5-10.5 [facility]2016-12-25 11:03:00 Test Item Value Reference Range Interpretation Comments CO2 (test code = CO2) 32 24-32 [facility]2016-12-25 11:03:00 Test Item Value Reference Range Interpretation Comments AGAP (test code = AGAP) 13.4 10.0-20.[facility]PnfanwqYVCIGZPVTW4140-54-85 11:03:00 Test Item Value Reference Range Interpretation Comments Eosinophils (test code = 10.3 See_Comment [A utomated message] The Eosinophils) system which ge nerated this result tra nsmitted reference range : <=4.0. The reference r leo was not used to int erpret this result as normal/abnormal . [facility] CampusCohnzziHZOWDCWODP3207-09-46 11:03:00 Test Item Value Reference Range Interpretation Comments Basophils # (test code 0.1 See_Comment [Aut omated message] The = Basophils #) system which generated this result tra nsmitted reference range : <=0.2. The reference r leo was not used to int erpret this result as normal/abnormal . [facility] CampusWjnndoyMDCYCTFCCI4975-70-45 11:03:00 Test Item Value Reference Range Interpretation Comments Eosinophils # (test code 0.5 See_Comment [A utomated message] The = Eosinophils #) system whic h generated this result tra nsmitted reference range : <=0.5. The reference r leo was not used to int erpret this result as normal/abnormal . [facility] CampusAqvvkcqVCFJLHZRXC2697-79-24 11:03:00 Test Item Value Reference Range Interpretation Comments Monocytes # (test code 0.5 See_Comment [Aut omated message] The = Monocytes #) system which generated this result tra nsmitted reference range : <=0.8. The reference r leo was not used to int erpret this result as normal/abnormal . [facility] CampusRqcqmuuLNZQYWTFLU7448-25-65 11:03:00 Test Item Value Reference Range Interpretation Comments Segs-Bands # (test code = Segs-Bands #) 2.1 1.5-8.1 [facility] CampusBxqljpmTZTZITZMSV6472-68-03 11:03:00 Test Item Value Reference Range Interpretation Comments Basophils (test code = 1.2 See_Comment [Aut omated message] The Basophils) system which ge nerated this result tra nsmitted reference range : <=1.0. The reference r leo was not used to int erpret this result as normal/abnormal . [facility] CampusIxdkqaeXFKGUXSTYA0141-33-64 11:03:00 Test Item Value Reference Range Interpretation Comments Lymphocytes # (test code = Lymphocytes 1.9 1.0-5.5 #) [facility] CampusJqvxbcpFOBQGTSQNE1947-20-04 11:03:00 Test Item Value Reference Range Interpretation Comments Segs (test code = Segs) 42.5 45.0-75.0 [facility] CampusBxrffecABJLEETTNE4598-97-40 11:03:00 Test Item Value Reference Range Interpretation Comments Lymphocytes (test code = Lymphocytes) 37.0 20.0-40.0 [facility] CampusRiejevjUBAHWJBEHR9255-04-33 11:03:00 Test Item Value Reference Range Interpretation Comments Monocytes (test code = Monocytes) 9.0 2.0-12.0 [facility] CampusJqfrvjnUSIPDWSYFO3792-58-72 11:03:00 Test Item Value Reference Range Interpretation Comments MPV (test code = MPV) 9.8 7.4-10.4 [facility] CampusLgkcxhxWGVTQKFIIS6126-31-91 11:03:00 Test Item Value Reference Range Interpretation Comments WBC (test code = WBC) 5.0 3.7-10.4 [facility] CampusJgutfkgFIMXAHGLDM6840-52-65 11:03:00 Test Item Value Reference Range Interpretation Comments RBC (test code = RBC) 3.57 4.20-5.40 [facility] CampusZkjtgaxFJYQFCDYTU8558-80-05 11:03:00 Test Item Value Reference Range Interpretation Comments Hgb (test code = Hgb) 9.4 12.0-16.0 [facility] CampusAmzhdulBSLRPLXUXJ3747-68-36 11:03:00 Test Item Value Reference Range Interpretation Comments Hct (test code = Hct) 28.5 36.0-48.0 [facility] CampusOkbaqoaJTOVYGPCBJ8765-82-84 11:03:00 Test Item Value Reference Range Interpretation Comments Platelet (test code = Platelet) 183 133-450 [facility] CampusLcbjdunGJJVALVEKS9811-60-47 11:03:00 Test Item Value Reference Range Interpretation Comments MCV (test code = MCV) 79.9 80.0-98.0 [facility] CampusZqeywpuISUJGYRRXS2195-16-91 11:03:00 Test Item Value Reference Range Interpretation Comments MCH (test code = MCH) 26.3 pg 27.0-31.0 [facility] CampusZscdflbNQPGPQVDTN5521-26-95 11:03:00 Test Item Value Reference Range Interpretation Comments MCHC (test code = MCHC) 33.0 32.0-36.0 [facility] CampusHmzxtqpQMLNCOFZFX3508-26-64 11:03:00 Test Item Value Reference Range Interpretation Comments RDW (test code = RDW) 15.9 11.5-14.5 [facility]2016-12-25 11:03:00 Test Item Value Reference Range Interpretation Comments Phosphorus (test code = Phosphorus) 4.8 2.5-4.5 [facility]2016-12-25 11:03:00 Test Item Value Reference Range Interpretation Comments Magnesium Lvl (test code = Magnesium 2.0 1.8-2.4 Lvl) [facility]2016-12-25 11:03:00 Test Item Value Reference Range Interpretation Comments eGFR (test code = eGFR) 32 [facility]2016-12-25 11:03:00 Test Item Value Reference Range Interpretation Comments Chloride Lvl (test code = Chloride Lvl) 101 95-109 [facility]2016-12-25 11:03:00 Test Item Value Reference Range Interpretation Comments Potassium Lvl (test code = Potassium 4.4 3.5-5.1 Lvl) [facility]2016-12-25 11:03:00 Test Item Value Reference Range Interpretation Comments BUN (test code = BUN) 37 7-22 [facility]2016-12-25 11:03:00 Test Item Value Reference Range Interpretation Comments Glucose Lvl (test code = Glucose Lvl) 119 70-99 [facility]2016-12-25 11:03:00 Test Item Value Reference Range Interpretation Comments Creatinine Lvl (test code = Creatinine 2.00 0.50-1.40 Lvl) [facility]2016-12-25 11:03:00 Test Item Value Reference Range Interpretation Comments Sodium Lvl (test code = Sodium Lvl) 142 135-145 [facility]2016-12-25 11:03:00 Test Item Value Reference Range Interpretation Comments Calcium Lvl (test code = Calcium Lvl) 8.7 8.5-10.5 [facility]2016-12-25 11:03:00 Test Item Value Reference Range Interpretation Comments CO2 (test code = CO2) 32 24-32 [facility]2016-12-25 11:03:00 Test Item Value Reference Range Interpretation Comments AGAP (test code = AGAP) 13.4 10.0-20.0 [facility] HospitalHzddarzWLHSLHGIPP6180-29-38 11:03:00 Test Item Value Reference Range Interpretation Comments Eosinophils (test code = 10.3 See_Comment [A utomated message] The Eosinophils) system which ge nerated this result tra nsmitted reference range : <=4.0. The reference r leo was not used to int erpret this result as normal/abnormal . [facility] CampusNjkvmgkJJXWUPAUIO9180-57-01 11:03:00 Test Item Value Reference Range Interpretation Comments Basophils # (test code 0.1 See_Comment [Aut omated message] The = Basophils #) system which generated this result tra nsmitted reference range : <=0.2. The reference r leo was not used to int erpret this result as normal/abnormal . [facility] CampusVancghyEDPJEVYSRW5896-53-03 11:03:00 Test Item Value Reference Range Interpretation Comments Eosinophils # (test code 0.5 See_Comment [A utomated message] The = Eosinophils #) system whic h generated this result tra nsmitted reference range : <=0.5. The reference r leo was not used to int erpret this result as normal/abnormal . [facility] CampusBsdoacyWIHYAHRHEV4516-24-61 11:03:00 Test Item Value Reference Range Interpretation Comments Monocytes # (test code 0.5 See_Comment [Aut omated message] The = Monocytes #) system which generated this result tra nsmitted reference range : <=0.8. The reference r leo was not used to int erpret this result as normal/abnormal . [facility] CampusOpsvopcZEXFYWRDCR8249-64-19 11:03:00 Test Item Value Reference Range Interpretation Comments Segs-Bands # (test code = Segs-Bands #) 2.1 1.5-8.1 [facility] CampusZwgsdzpUSHJTSLECN2127-55-97 11:03:00 Test Item Value Reference Range Interpretation Comments Basophils (test code = 1.2 See_Comment [Aut omated message] The Basophils) system which ge nerated this result tra nsmitted reference range : <=1.0. The reference r leo was not used to int erpret this result as normal/abnormal . [facility] CampusMzpynnrGFPQGVLTHA6912-21-74 11:03:00 Test Item Value Reference Range Interpretation Comments Lymphocytes # (test code = Lymphocytes 1.9 1.0-5.5 #) [facility] CampusCzsccxgUWGUFNARIY6055-28-44 11:03:00 Test Item Value Reference Range Interpretation Comments Segs (test code = Segs) 42.5 45.0-75.0 [facility]OpsalpeGVCBPKOWMR2773-53-36 11:03:00 Test Item Value Reference Range Interpretation Comments Lymphocytes (test code = Lymphocytes) 37.0 20.0-40.0 [facility]ZiycwomZNGXSHXQKP1220-97-63 11:03:00 Test Item Value Reference Range Interpretation Comments Monocytes (test code = Monocytes) 9.0 2.0-12.0 [facility] HospitalYvtbpofZKSYHRWFBS3851-62-60 11:03:00 Test Item Value Reference Range Interpretation Comments MPV (test code = MPV) 9.8 7.4-10.4 [facility] HospitalEjreqxqTZQOLZWUGN0805-62-69 11:03:00 Test Item Value Reference Range Interpretation Comments WBC (test code = WBC) 5.0 3.7-10.4 [facility] HospitalPgvdhrdTAVMWWZGGC1032-89-40 11:03:00 Test Item Value Reference Range Interpretation Comments RBC (test code = RBC) 3.57 4.20-5.40 [facility] HospitalMyerfxoIFWJWNSQIL0426-04-67 11:03:00 Test Item Value Reference Range Interpretation Comments Hgb (test code = Hgb) 9.4 12.0-16.0 [facility] HospitalIgwnyxcAVZNJWSWTE8142-34-51 11:03:00 Test Item Value Reference Range Interpretation Comments Hct (test code = Hct) 28.5 36.0-48.0 [facility] HospitalKkpltluNPAMLPLVKA7844-06-61 11:03:00 Test Item Value Reference Range Interpretation Comments Platelet (test code = Platelet) 183 133-450 [facility] HospitalHeqkstcNXERYSDMHJ0470-31-52 11:03:00 Test Item Value Reference Range Interpretation Comments MCV (test code = MCV) 79.9 80.0-98.0 [facility] HospitalZrhgnorXHRTKLDDZG0408-47-67 11:03:00 Test Item Value Reference Range Interpretation Comments MCH (test code = MCH) 26.3 pg 27.0-31.0 [facility] HospitalLdbdhuvLJQIYXYPVA0039-23-81 11:03:00 Test Item Value Reference Range Interpretation Comments MCHC (test code = MCHC) 33.0 32.0-36.0 [facility] HospitalLvdygfsASHBQVOVUS4284-80-80 11:03:00 Test Item Value Reference Range Interpretation Comments RDW (test code = RDW) 15.9 11.5-14.5 [facility]2016-12-24 10:26:00 Test Item Value Reference Range Interpretation Comments U Prot/Creat (test code = U Prot/Creat) 6.9 [facility]2016-12-24 10:26:00 Test Item Value Reference Range Interpretation Comments U Creatinine (test code = U Creatinine) 19.30 [facility]2016-12-24 10:26:00 Test Item Value Reference Range Interpretation Comments U Protein (test code = U Protein) 133.1 [facility]2016-12-24 10:26:00 Test Item Value Reference Range Interpretation Comments U Prot/Creat (test code = U Prot/Creat) 6.9 [facility]2016-12-24 10:26:00 Test Item Value Reference Range Interpretation Comments U Creatinine (test code = U Creatinine) 19.30 [facility]2016-12-24 10:26:00 Test Item Value Reference Range Interpretation Comments U Protein (test code = U Protein) 133.1 [facility]2016-12-24 10:26:00 Test Item Value Reference Range Interpretation Comments U Prot/Creat (test code = U Prot/Creat) 6.9 [facility]2016-12-24 10:26:00 Test Item Value Reference Range Interpretation Comments U Creatinine (test code = U Creatinine) 19.30 [facility]2016-12-24 10:26:00 Test Item Value Reference Range Interpretation Comments U Protein (test code = U Protein) 133.1 [facility]2016-12-24 10:26:00 Test Item Value Reference Range Interpretation Comments U Prot/Creat (test code = U Prot/Creat) 6.9 [facility]2016-12-24 10:26:00 Test Item Value Reference Range Interpretation Comments U Creatinine (test code = U Creatinine) 19.30 [facility]2016-12-24 10:26:00 Test Item Value Reference Range Interpretation Comments U Protein (test code = U Protein) 133.1 [facility]2016-12-24 10:26:00 Test Item Value Reference Range Interpretation Comments U Prot/Creat (test code = U Prot/Creat) 6.9 [facility]2016-12-24 10:26:00 Test Item Value Reference Range Interpretation Comments U Creatinine (test code = U Creatinine) 19.30 [facility]URINE HKTO2612-55-59 10:26:00 Test Item Value Reference Range Interpretation Comments U Protein (test code = U Protein) 133.1 [facility] HospitalOilkfluZTYDOZPBYY9927-75-74 09:20:00 Test Item Value Reference Range Interpretation Comments MPV (test code = MPV) 9.7 7.4-10.4 [facility] HospitalUxadulyHDFNXXDMCW3071-85-49 09:20:00 Test Item Value Reference Range Interpretation Comments Platelet (test code = Platelet) 184 133-[address] [facility] HospitalIxezjhgBQXFAPIEYG2153-76-59 09:20:00 Test Item Value Reference Range Interpretation Comments RDW (test code = RDW) 15.9 11.5-14.5 [facility] HospitalPtmzirmXKNPNLNJIG0634-79-42 09:20:00 Test Item Value Reference Range Interpretation Comments MCV (test code = MCV) 79.3 80.0-98.0 [facility] HospitalXxsbvikCOGEYTGWGC1761-40-54 09:20:00 Test Item Value Reference Range Interpretation Comments MCHC (test code = MCHC) 33.0 32.0-36.0 [facility] HospitalKysdpvdKZATLJTCQR3552-11-04 09:20:00 Test Item Value Reference Range Interpretation Comments MCH (test code = MCH) 26.2 pg 27.0-31.0 [facility] HospitalQcgxbvtAORYHMSIFD9729-63-60 09:20:00 Test Item Value Reference Range Interpretation Comments Hct (test code = Hct) 29.4 36.0-48.0 [facility] HospitalNhfnbkjDQGJOEFCKM4956-78-20 09:20:00 Test Item Value Reference Range Interpretation Comments Hgb (test code = Hgb) 9.7 12.0-16.0 [facility] HospitalDvywdfuAEVJXALWVG9372-05-74 09:20:00 Test Item Value Reference Range Interpretation Comments RBC (test code = RBC) 3.70 4.20-5.40 [facility] HospitalTsxwbasRBBQVJUPBP5362-88-84 09:20:00 Test Item Value Reference Range Interpretation Comments WBC (test code = WBC) 5.7 3.7-10.[address] [facility] HospitalAymgmrzQPHWZIMEZN0760-27-52 09:20:00 Test Item Value Reference Range Interpretation Comments Basophils # (test code 0.1 See_Comment [Aut omated message] The = Basophils #) system which generated this result tra nsmitted reference range : <=0.2. The reference r leo was not used to int erpret this result as normal/abnormal . [facility] CampusLupdflfLDLXZZSQTT2105-03-60 09:20:00 Test Item Value Reference Range Interpretation Comments Lymphocytes # (test code = Lymphocytes 2.2 1.0-5.5 #) [facility] CampusCvvbrnnEABMJECRQR5313-84-31 09:20:00 Test Item Value Reference Range Interpretation Comments Eosinophils # (test code 0.5 See_Comment [A utomated message] The = Eosinophils #) system whic h generated this result tra nsmitted reference range : <=0.5. The reference r leo was not used to int erpret this result as normal/abnormal . [facility] CampusPupnqhvZZFMUHJPBT3300-62-52 09:20:00 Test Item Value Reference Range Interpretation Comments Monocytes # (test code 0.5 See_Comment [Aut omated message] The = Monocytes #) system which generated this result tra nsmitted reference range : <=0.8. The reference r leo was not used to int erpret this result as normal/abnormal . [facility] CampusCuldklaZYQOUNMICB5789-87-11 09:20:00 Test Item Value Reference Range Interpretation Comments Basophils (test code = 1.1 See_Comment [Aut omated message] The Basophils) system which ge nerated this result tra nsmitted reference range : <=1.0. The reference r leo was not used to int erpret this result as normal/abnormal . [facility] CampusUgxygawSPGTNVNKUP3095-11-01 09:20:00 Test Item Value Reference Range Interpretation Comments Segs-Bands # (test code = Segs-Bands #) 2.3 1.5-8.1 [facility] CampusAvpylzqCSIPMWKYWK5826-10-36 09:20:00 Test Item Value Reference Range Interpretation Comments Eosinophils (test code = 9.5 See_Comment [A utomated message] The Eosinophils) system which ge nerated this result tra nsmitted reference range : <=4.0. The reference r leo was not used to int erpret this result as normal/abnormal . [facility] CampusOyiulutVCHXVVJCUF6372-64-67 09:20:00 Test Item Value Reference Range Interpretation Comments Monocytes (test code = Monocytes) 9.0 2.0-12.0 [facility] CampusQyuwagiVBVNUSDEHM8516-32-31 09:20:00 Test Item Value Reference Range Interpretation Comments Lymphocytes (test code = Lymphocytes) 38.9 20.0-40.0 [facility] CampusRrpqvuiEOJYTITUHK0183-53-64 09:20:00 Test Item Value Reference Range Interpretation Comments Segs (test code = Segs) 41.5 45.0-75.0 [facility] CampusKehkflaFEDPOWKWES7597-11-64 09:20:00 Test Item Value Reference Range Interpretation Comments MPV (test code = MPV) 9.7 7.4-10.4 [facility] CampusTgjqztvXVCIIDCPGN3270-77-88 09:20:00 Test Item Value Reference Range Interpretation Comments Platelet (test code = Platelet) 184 133-450 [facility] CampusNlhzgmfEVVDCCWBNY3681-70-00 09:20:00 Test Item Value Reference Range Interpretation Comments RDW (test code = RDW) 15.9 11.5-14.5 [facility] CampusRqfkvvaFALGUOURWG3793-63-04 09:20:00 Test Item Value Reference Range Interpretation Comments MCV (test code = MCV) 79.3 80.0-98.0 [facility] CampusDmuupraUMYXEDCXPX5608-64-95 09:20:00 Test Item Value Reference Range Interpretation Comments MCHC (test code = MCHC) 33.0 32.0-36.0 [facility] CampusZqzyetqOYUUULGISW2612-20-73 09:20:00 Test Item Value Reference Range Interpretation Comments MCH (test code = MCH) 26.2 pg 27.0-31.0 [facility] CampusFofnwmaLFFFKKZTCE0570-96-32 09:20:00 Test Item Value Reference Range Interpretation Comments Hct (test code = Hct) 29.4 36.0-48.0 [facility] CampusDaqjzfmJKRQPTXSDM9328-86-58 09:20:00 Test Item Value Reference Range Interpretation Comments Hgb (test code = Hgb) 9.7 12.0-16.0 [facility] CampusUlkpejhPOKYOBIVGE9165-78-40 09:20:00 Test Item Value Reference Range Interpretation Comments RBC (test code = RBC) 3.70 4.20-5.40 [facility] CampusPfhpmifNMRNGFKKTG3921-35-69 09:20:00 Test Item Value Reference Range Interpretation Comments WBC (test code = WBC) 5.7 3.7-10.4 [facility] CampusGqooygxHRZRNPQHVS6467-68-54 09:20:00 Test Item Value Reference Range Interpretation Comments Basophils # (test code 0.1 See_Comment [Aut omated message] The = Basophils #) system which generated this result tra nsmitted reference range : <=0.2. The reference r leo was not used to int erpret this result as normal/abnormal . [facility] CampusQneapqcIUJNNUSNEN3758-42-41 09:20:00 Test Item Value Reference Range Interpretation Comments Lymphocytes # (test code = Lymphocytes 2.2 1.0-5.5 #) [facility] CampusOvwgdpcMMJRSHSVQR5159-12-65 09:20:00 Test Item Value Reference Range Interpretation Comments Eosinophils # (test code 0.5 See_Comment [A utomated message] The = Eosinophils #) system wh h generated this result tra nsmitted reference range : <=0.5. The reference r leo was not used to int erpret this result as normal/abnormal . [facility] CampusAhptwcrTUCTDPBRTU9887-43-17 09:20:00 Test Item Value Reference Range Interpretation Comments Monocytes # (test code 0.5 See_Comment [Aut omated message] The = Monocytes #) system which generated this result tra nsmitted reference range : <=0.8. The reference r leo was not used to int erpret this result as normal/abnormal . [facility] CampusDpzyltnTPAHBBBSNJ2497-49-72 09:20:00 Test Item Value Reference Range Interpretation Comments Basophils (test code = 1.1 See_Comment [Aut omated message] The Basophils) system which ge nerated this result tra nsmitted reference range : <=1.0. The reference r leo was not used to int erpret this result as normal/abnormal . [facility] CampusUincxbsGECAIOWNWB4573-50-08 09:20:00 Test Item Value Reference Range Interpretation Comments Segs-Bands # (test code = Segs-Bands #) 2.3 1.5-8.1 [facility] CampusVsezeatQNHJPFJAWC0193-89-71 09:20:00 Test Item Value Reference Range Interpretation Comments Eosinophils (test code = 9.5 See_Comment [A utomated message] The Eosinophils) system which ge nerated this result tra nsmitted reference range : <=4.0. The reference r leo was not used to int erpret this result as normal/abnormal . [facility] CampusHswyjqkQYTASGLXUS2820-37-13 09:20:00 Test Item Value Reference Range Interpretation Comments Monocytes (test code = Monocytes) 9.0 2.0-12.0 [facility]NhaquiuHKBCPTUTJB7859-35-53 09:20:00 Test Item Value Reference Range Interpretation Comments Lymphocytes (test code = Lymphocytes) 38.9 20.0-40.0 [facility]PgzcjcwAFTHKEFVEJ5221-30-39 09:20:00 Test Item Value Reference Range Interpretation Comments Segs (test code = Segs) 41.5 45.0-75.0 [facility] CampusMcwxmzvFVLDTDNYXX1215-96-54 09:20:00 Test Item Value Reference Range Interpretation Comments MPV (test code = MPV) 9.7 7.4-10.4 [facility] CampusIfyfhqwMYVTDIIGAA0656-73-28 09:20:00 Test Item Value Reference Range Interpretation Comments Platelet (test code = Platelet) 184 133-450 [facility] CampusKtddibdMDMBDAVPPS9213-24-48 09:20:00 Test Item Value Reference Range Interpretation Comments RDW (test code = RDW) 15.9 11.5-14.5 [facility] CampusTgygyzvQWLDMPWLBW8197-64-72 09:20:00 Test Item Value Reference Range Interpretation Comments MCV (test code = MCV) 79.3 80.0-98.0 [facility] CampusRhbmjgrPVSEFQSTGJ0116-55-73 09:20:00 Test Item Value Reference Range Interpretation Comments MCHC (test code = MCHC) 33.0 32.0-36.0 [facility] CampusMmxlhjqTCBCYUJXQZ3769-42-23 09:20:00 Test Item Value Reference Range Interpretation Comments MCH (test code = MCH) 26.2 pg 27.0-31.0 [facility] CampusSraceiiLVNQCOJCKK3972-07-85 09:20:00 Test Item Value Reference Range Interpretation Comments Hct (test code = Hct) 29.4 36.0-48.0 [facility] CampusMbdzmjpTZPFISEIGF6360-56-89 09:20:00 Test Item Value Reference Range Interpretation Comments Hgb (test code = Hgb) 9.7 12.0-16.0 [facility] CampusCbtdeccZPACZVJBMH7172-96-20 09:20:00 Test Item Value Reference Range Interpretation Comments RBC (test code = RBC) 3.70 4.20-5.40 [facility] CampusDsgfeluOTXPAOWUZC3667-38-71 09:20:00 Test Item Value Reference Range Interpretation Comments WBC (test code = WBC) 5.7 3.7-10.4 [place] [id number] 09:20:00 Test Item Value Reference Range Interpretation Comments Basophils # (test code 0.1 See_Comment [Aut omated message] The = Basophils #) system which generated this result tra nsmitted reference range : <=0.2. The reference r leo was not used to int erpret this result as normal/abnormal . [facility] CampusAnygqqzNXEPAXVKTY1174-77-02 09:20:00 Test Item Value Reference Range Interpretation Comments Lymphocytes # (test code = Lymphocytes 2.2 1.0-5.5 #) [facility] CampusQwhehmvQOXTXHVUHO1507-49-14 09:20:00 Test Item Value Reference Range Interpretation Comments Eosinophils # (test code 0.5 See_Comment [A utomated message] The = Eosinophils #) system whic h generated this result tra nsmitted reference range : <=0.5. The reference r leo was not used to int erpret this result as normal/abnormal . [facility] CampusJngxmffSHXCQYGBAH2079-09-92 09:20:00 Test Item Value Reference Range Interpretation Comments Monocytes # (test code 0.5 See_Comment [Aut omated message] The = Monocytes #) system which generated this result tra nsmitted reference range : <=0.8. The reference r leo was not used to int erpret this result as normal/abnormal . [facility] CampusZjrsrkfGIDJSAZQVK1848-89-49 09:20:00 Test Item Value Reference Range Interpretation Comments Basophils (test code = 1.1 See_Comment [Aut omated message] The Basophils) system which ge nerated this result tra nsmitted reference range : <=1.0. The reference r leo was not used to int erpret this result as normal/abnormal . [facility] CampusNbcbsyiDYLIAFWCWI5278-66-38 09:20:00 Test Item Value Reference Range Interpretation Comments Segs-Bands # (test code = Segs-Bands #) 2.3 1.5-8.1 [facility] CampusGwarzleMZWVGFHGZA1667-53-43 09:20:00 Test Item Value Reference Range Interpretation Comments Eosinophils (test code = 9.5 See_Comment [A utomated message] The Eosinophils) system which ge nerated this result tra nsmitted reference range : <=4.0. The reference r leo was not used to int erpret this result as normal/abnormal . [place] [address]-12-24 09:20:00 Test Item Value Reference Range Interpretation Comments Monocytes (test code = Monocytes) 9.0 2.0-12.0 [facility] CampusYdulaqoQCIHSDXIFF9366-72-91 09:20:00 Test Item Value Reference Range Interpretation Comments Lymphocytes (test code = Lymphocytes) 38.9 20.0-40.0 [facility] CampusMgqigbeTRXLZBLUVV6770-39-32 09:20:00 Test Item Value Reference Range Interpretation Comments Segs (test code = Segs) 41.5 45.0-75.0 [facility] CampusLoqybncXCZLWFNRUH9409-64-68 09:20:00 Test Item Value Reference Range Interpretation Comments MPV (test code = MPV) 9.7 7.4-10.4 [facility] CampusPyczzxhBDSUESFPJH0221-38-58 09:20:00 Test Item Value Reference Range Interpretation Comments Platelet (test code = Platelet) 184 133-450 [facility] CampusEselkynGBUIXZHHRK9398-68-31 09:20:00 Test Item Value Reference Range Interpretation Comments RDW (test code = RDW) 15.9 11.5-14.5 [facility] CampusDtgljdaVCOCRCNQGF7722-82-74 09:20:00 Test Item Value Reference Range Interpretation Comments MCV (test code = MCV) 79.3 80.0-98.0 [facility] CampusHnrrpzqUVEPUDPTVU2736-07-29 09:20:00 Test Item Value Reference Range Interpretation Comments MCHC (test code = MCHC) 33.0 32.0-36.0 [facility] CampusDtmcfdvSSHVGFDRIZ0320-05-75 09:20:00 Test Item Value Reference Range Interpretation Comments MCH (test code = MCH) 26.2 pg 27.0-31.0 [facility] CampusHvnjbfwAUXFVTGQZD5180-78-92 09:20:00 Test Item Value Reference Range Interpretation Comments Hct (test code = Hct) 29.4 36.0-48.0 [facility] CampusYwteuguPERZFVLIVG5409-80-98 09:20:00 Test Item Value Reference Range Interpretation Comments Hgb (test code = Hgb) 9.7 12.0-16.0 [facility] CampusLhvmqdtJCGXHUTIOD6807-73-33 09:20:00 Test Item Value Reference Range Interpretation Comments RBC (test code = RBC) 3.70 4.20-5.40 [facility] CampusJvtaqrgQSVZOXMJQY9926-14-00 09:20:00 Test Item Value Reference Range Interpretation Comments WBC (test code = WBC) 5.7 3.7-10.4 [facility] CampusYvsfkzqANMIMFBPXW3113-12-14 09:20:00 Test Item Value Reference Range Interpretation Comments Basophils # (test code 0.1 See_Comment [Aut omated message] The = Basophils #) system which generated this result tra nsmitted reference range : <=0.2. The reference r leo was not used to int erpret this result as normal/abnormal . [facility] CampusCknwssvFMGAWFCSSK2256-57-02 09:20:00 Test Item Value Reference Range Interpretation Comments Lymphocytes # (test code = Lymphocytes 2.2 1.0-5.5 #) [facility] CampusXesrmpnLFXRNXCJNS0225-87-87 09:20:00 Test Item Value Reference Range Interpretation Comments Eosinophils # (test code 0.5 See_Comment [A utomated message] The = Eosinophils #) system whic h generated this result tra nsmitted reference range : <=0.5. The reference r leo was not used to int erpret this result as normal/abnormal . [facility] CampusBzxlsyaHHUXDOFLVL7249-04-80 09:20:00 Test Item Value Reference Range Interpretation Comments Monocytes # (test code 0.5 See_Comment [Aut omated message] The = Monocytes #) system which generated this result tra nsmitted reference range : <=0.8. The reference r leo was not used to int erpret this result as normal/abnormal . [facility] CampusYgxcnkdWYCFHQNCTC3440-28-90 09:20:00 Test Item Value Reference Range Interpretation Comments Basophils (test code = 1.1 See_Comment [Aut omated message] The Basophils) system which ge nerated this result tra nsmitted reference range : <=1.0. The reference r leo was not used to int erpret this result as normal/abnormal . [facility] CampusBrewupzGFSDKMKPGS4241-21-44 09:20:00 Test Item Value Reference Range Interpretation Comments Segs-Bands # (test code = Segs-Bands #) 2.3 1.5-8.1 [facility] CampusIdekpbqFWMNFJJZUN3772-40-65 09:20:00 Test Item Value Reference Range Interpretation Comments Eosinophils (test code = 9.5 See_Comment [A utomated message] The Eosinophils) system which ge nerated this result tra nsmitted reference range : <=4.0. The reference r leo was not used to int erpret this result as normal/abnormal . [facility] CampusSlnkyneTCVAFGRZCU4688-49-23 09:20:00 Test Item Value Reference Range Interpretation Comments Monocytes (test code = Monocytes) 9.0 2.0-12.0 [facility] CampusTzxbwgxIRYXZADBUQ9836-91-19 09:20:00 Test Item Value Reference Range Interpretation Comments Lymphocytes (test code = Lymphocytes) 38.9 20.0-40.0 [place] 296196-12-24 09:20:00 Test Item Value Reference Range Interpretation Comments Segs (test code = Segs) 41.5 45.0-75.0 [place] 296196-12-24 09:20:00 Test Item Value Reference Range Interpretation Comments MPV (test code = MPV) 9.7 7.4-10.4 [place] 296196-12-24 09:20:00 Test Item Value Reference Range Interpretation Comments Platelet (test code = Platelet) 184 133-450 [facility] CampusHfdzzouAFFDDTTNLA3257-65-19 09:20:00 Test Item Value Reference Range Interpretation Comments RDW (test code = RDW) 15.9 11.5-14.5 [facility] CampusAdoogyhRWQYWRUKDL8015-24-52 09:20:00 Test Item Value Reference Range Interpretation Comments MCV (test code = MCV) 79.3 80.0-98.0 [facility] CampusEbzouamMVLVSVYXZT0003-50-91 09:20:00 Test Item Value Reference Range Interpretation Comments MCHC (test code = MCHC) 33.0 32.0-36.0 [facility] CampusNgjxqnjJJQRQWKUKM8969-00-67 09:20:00 Test Item Value Reference Range Interpretation Comments MCH (test code = MCH) 26.2 pg 27.0-31.0 [facility] CampusSlsiiskGTUFMDXYWF1478-72-21 09:20:00 Test Item Value Reference Range Interpretation Comments Hct (test code = Hct) 29.4 36.0-48.0 [facility] CampusXmhacqpHBVZHNIINE3720-71-27 09:20:00 Test Item Value Reference Range Interpretation Comments Hgb (test code = Hgb) 9.7 12.0-16.0 [place] 296196-12-24 09:20:00 Test Item Value Reference Range Interpretation Comments RBC (test code = RBC) 3.70 4.20-5.40 [facility] CampusSworsqvBUUHTUAXDM7622-68-41 09:20:00 Test Item Value Reference Range Interpretation Comments WBC (test code = WBC) 5.7 3.7-10.4 [facility] CampusKfubjhfCCDNBUEHPJ3491-58-15 09:20:00 Test Item Value Reference Range Interpretation Comments Basophils # (test code 0.1 See_Comment [Aut omated message] The = Basophils #) system which generated this result tra nsmitted reference range : <=0.2. The reference r leo was not used to int erpret this result as normal/abnormal . [facility] CampusVfnxpbhIBCKRHCJML3260-52-37 09:20:00 Test Item Value Reference Range Interpretation Comments Lymphocytes # (test code = Lymphocytes 2.2 1.0-5.5 #) [facility] CampusQiubtodUVCQHWZFZU5881-15-93 09:20:00 Test Item Value Reference Range Interpretation Comments Eosinophils # (test code 0.5 See_Comment [A utomated message] The = Eosinophils #) system wh h generated this result tra nsmitted reference range : <=0.5. The reference r leo was not used to int erpret this result as normal/abnormal . [facility] CampusRmhdthqYLADNWEIZI4246-21-66 09:20:00 Test Item Value Reference Range Interpretation Comments Monocytes # (test code 0.5 See_Comment [Aut omated message] The = Monocytes #) system which generated this result tra nsmitted reference range : <=0.8. The reference r leo was not used to int erpret this result as normal/abnormal . [facility] CampusUaqzrafOKBIMJFOQN4906-51-48 09:20:00 Test Item Value Reference Range Interpretation Comments Basophils (test code = 1.1 See_Comment [Aut omated message] The Basophils) system which ge nerated this result tra nsmitted reference range : <=1.0. The reference r leo was not used to int erpret this result as normal/abnormal . [facility] CampusSeryjomRFQUWJQOVH6572-13-76 09:20:00 Test Item Value Reference Range Interpretation Comments Segs-Bands # (test code = Segs-Bands #) 2.3 1.5-8.1 [facility] CampusZprosyrWBUAAXSWJY4302-85-25 09:20:00 Test Item Value Reference Range Interpretation Comments Eosinophils (test code = 9.5 See_Comment [A utomated message] The Eosinophils) system which ge nerated this result tra nsmitted reference range : <=4.0. The reference r leo was not used to int erpret this result as normal/abnormal . [facility] CampusXrngwkuIJAJJBQICB9375-59-82 09:20:00 Test Item Value Reference Range Interpretation Comments Monocytes (test code = Monocytes) 9.0 2.0-12.0 [facility] CampusEzibdfhUYQOBVQNDP0492-80-78 09:20:00 Test Item Value Reference Range Interpretation Comments Lymphocytes (test code = Lymphocytes) 38.9 20.0-40.0 [facility] CampusUchxppuNMKEPMTBXJ2267-38-80 09:20:00 Test Item Value Reference Range Interpretation Comments Segs (test code = Segs) 41.5 45.0-75.0 [facility]2016-12-24 06:34:00 Test Item Value Reference Range Interpretation Comments Magnesium Lvl (test code = Magnesium 1.7 1.8-2.4 Lvl) [facility]2016-12-24 06:34:00 Test Item Value Reference Range Interpretation Comments Phosphorus (test code = Phosphorus) 4.2 2.5-4.5 [facility]GiwulcfJZTSUGOIWOCU0669-06-91 06:34:00 Test Item Value Reference Range Interpretation Comments AGAP (test code = AGAP) 14.3 10.0-20.0 [facility] HospitalVpusnuoUYNRGJJUMFJZ4213-52-28 06:34:00 Test Item Value Reference Range Interpretation Comments eGFR (test code = eGFR) 41 [facility] HospitalNerjvvoRRIDPNXIAGHZ7654-28-69 06:34:00 Test Item Value Reference Range Interpretation Comments Chloride Lvl (test code = Chloride Lvl) 103 95-109 [facility] HospitalPjcplwhQJRLSYFCNLUU2105-39-73 06:34:00 Test Item Value Reference Range Interpretation Comments Calcium Lvl (test code = Calcium Lvl) 8.5 8.5-10.5 [facility] HospitalAegbubjHEREWRBUTLXR3973-40-63 06:34:00 Test Item Value Reference Range Interpretation Comments CO2 (test code = CO2) 32 24-32 [facility] HospitalEnowftgHZYWFTEAGGUX5893-39-77 06:34:00 Test Item Value Reference Range Interpretation Comments Glucose Lvl (test code = Glucose Lvl) 173 70-99 [facility] HospitalQzxyxssRDRDSWFYCSDO2731-00-13 06:34:00 Test Item Value Reference Range Interpretation Comments BUN (test code = BUN) 37 7-22 [facility] HospitalOfufchzTFHOTXSDMGYZ6105-32-18 06:34:00 Test Item Value Reference Range Interpretation Comments Creatinine Lvl (test code = Creatinine 1.63 0.50-1.40 Lvl) [facility] HospitalChccpjcNIOMKYQUKCSF7830-44-78 06:34:00 Test Item Value Reference Range Interpretation Comments Potassium Lvl (test code = Potassium 4.3 3.5-5.1 Lvl) [facility] HospitalVdgwckgEURHAIRKEGGO9146-31-51 06:34:00 Test Item Value Reference Range Interpretation Comments Sodium Lvl (test code = Sodium Lvl) 145 135-145 [facility]2016-12-24 06:34:00 Test Item Value Reference Range Interpretation Comments Magnesium Lvl (test code = Magnesium 1.7 1.8-2.4 Lvl) [facility]2016-12-24 06:34:00 Test Item Value Reference Range Interpretation Comments Phosphorus (test code = Phosphorus) 4.2 2.5-4.5 [facility] HospitalLastnrhNRSGVVECQTDG8752-76-58 06:34:00 Test Item Value Reference Range Interpretation Comments AGAP (test code = AGAP) 14.3 10.0-20.0 [facility] HospitalVnnrhssLEPOYTJCRHUY0321-15-77 06:34:00 Test Item Value Reference Range Interpretation Comments eGFR (test code = eGFR) 41 [facility] HospitalZgvayfxEXNRNJSPPRSD5003-45-29 06:34:00 Test Item Value Reference Range Interpretation Comments Chloride Lvl (test code = Chloride Lvl) 103 95-109 [facility] HospitalHmuxwpaMSAHKOTGKTNZ9749-38-07 06:34:00 Test Item Value Reference Range Interpretation Comments Calcium Lvl (test code = Calcium Lvl) 8.5 8.5-10.5 [facility] HospitalKaezfmjEYHVHGZNZWBB8617-11-90 06:34:00 Test Item Value Reference Range Interpretation Comments CO2 (test code = CO2) 32 24-32 [facility] HospitalJzivsteVSPZBNYDQNSW3609-90-21 06:34:00 Test Item Value Reference Range Interpretation Comments Glucose Lvl (test code = Glucose Lvl) 173 70-99 [facility] HospitalXooqdvmXXHMCLJBMZWQ7303-98-25 06:34:00 Test Item Value Reference Range Interpretation Comments BUN (test code = BUN) 37 7-22 [facility] HospitalQunskehFWWLQTGYLMAT7672-04-18 06:34:00 Test Item Value Reference Range Interpretation Comments Creatinine Lvl (test code = Creatinine 1.63 0.50-1.40 Lvl) [facility] HospitalNowjeivNJXNXQZLZDOC5594-76-12 06:34:00 Test Item Value Reference Range Interpretation Comments Potassium Lvl (test code = Potassium 4.3 3.5-5.1 Lvl) [facility] HospitalYzawxhcMDVJVLOGGONR1545-29-72 06:34:00 Test Item Value Reference Range Interpretation Comments Sodium Lvl (test code = Sodium Lvl) 145 135-145 [facility]2016-12-24 06:34:00 Test Item Value Reference Range Interpretation Comments Magnesium Lvl (test code = Magnesium 1.7 1.8-2.4 Lvl) [facility]2016-12-24 06:34:00 Test Item Value Reference Range Interpretation Comments Phosphorus (test code = Phosphorus) 4.2 2.5-4.5 [facility] HospitalKnsrlkkLLSQESESEDIZ8581-24-40 06:34:00 Test Item Value Reference Range Interpretation Comments AGAP (test code = AGAP) 14.3 10.0-20.0 [facility] HospitalZvrurizSXPSVUAQKFNM1699-04-14 06:34:00 Test Item Value Reference Range Interpretation Comments eGFR (test code = eGFR) 41 [facility] HospitalUgtlifhDEDUHCQTEWJX1760-80-55 06:34:00 Test Item Value Reference Range Interpretation Comments Chloride Lvl (test code = Chloride Lvl) 103 95-109 [facility] HospitalKjqocljHSXMJUKAGZFA9125-10-06 06:34:00 Test Item Value Reference Range Interpretation Comments Calcium Lvl (test code = Calcium Lvl) 8.5 8.5-10.5 [facility] HospitalKodeswuHYXMODHMTAFB7595-60-09 06:34:00 Test Item Value Reference Range Interpretation Comments CO2 (test code = CO2) 32 24-32 [facility] HospitalHytcuxjINKTPWOMNJUI7876-90-46 06:34:00 Test Item Value Reference Range Interpretation Comments Glucose Lvl (test code = Glucose Lvl) 173 70-99 [facility] HospitalDnpphitEIAINQETFLHR9040-99-98 06:34:00 Test Item Value Reference Range Interpretation Comments BUN (test code = BUN) 37 7-22 [facility] HospitalQxlkevdWEMZLIEJFWOA5808-57-36 06:34:00 Test Item Value Reference Range Interpretation Comments Creatinine Lvl (test code = Creatinine 1.63 0.50-1.40 Lvl) [facility] HospitalXjjlpwpCLZZGGOORGIZ7183-47-22 06:34:00 Test Item Value Reference Range Interpretation Comments Potassium Lvl (test code = Potassium 4.3 3.5-5.1 Lvl) [facility] HospitalCbvmivhTDGBJJNVGNYF5899-04-71 06:34:00 Test Item Value Reference Range Interpretation Comments Sodium Lvl (test code = Sodium Lvl) 145 135-145 [facility]2016-12-24 06:34:00 Test Item Value Reference Range Interpretation Comments Magnesium Lvl (test code = Magnesium 1.7 1.8-2.4 Lvl) [facility]2016-12-24 06:34:00 Test Item Value Reference Range Interpretation Comments Phosphorus (test code = Phosphorus) 4.2 2.5-4.5 [facility] HospitalQnxcsgnSGAGAMLXBQIK5703-29-66 06:34:00 Test Item Value Reference Range Interpretation Comments AGAP (test code = AGAP) 14.3 10.0-20.0 [facility] HospitalYztdovdTGNTRGLTERMW4075-17-54 06:34:00 Test Item Value Reference Range Interpretation Comments eGFR (test code = eGFR) 41 [facility] HospitalPlsazdaCJETANUUPGOP0503-64-23 06:34:00 Test Item Value Reference Range Interpretation Comments Chloride Lvl (test code = Chloride Lvl) 103 95-109 [facility] HospitalWnataxwKXIGLKREGESW5009-74-82 06:34:00 Test Item Value Reference Range Interpretation Comments Calcium Lvl (test code = Calcium Lvl) 8.5 8.5-10.5 [facility] HospitalDpzchwtKXYFMGRNOIVS7255-14-38 06:34:00 Test Item Value Reference Range Interpretation Comments CO2 (test code = CO2) 32 24-32 [facility] HospitalWzanaujOPFBXVACVEAB9865-35-46 06:34:00 Test Item Value Reference Range Interpretation Comments Glucose Lvl (test code = Glucose Lvl) 173 70-99 [facility] HospitalMkuvzfwRZQXAOBPGJVP5525-89-11 06:34:00 Test Item Value Reference Range Interpretation Comments BUN (test code = BUN) 37 7-22 [facility] HospitalMimayhmMYUOIUGPLVWU8910-39-43 06:34:00 Test Item Value Reference Range Interpretation Comments Creatinine Lvl (test code = Creatinine 1.63 0.50-1.40 Lvl) [facility] HospitalTboxdtuHQCHSREDBXTX9382-93-76 06:34:00 Test Item Value Reference Range Interpretation Comments Potassium Lvl (test code = Potassium 4.3 3.5-5.1 Lvl) [facility] HospitalIctdrraZSNINXJVYVJO6281-86-06 06:34:00 Test Item Value Reference Range Interpretation Comments Sodium Lvl (test code = Sodium Lvl) 145 135-145 [facility]2016-12-24 06:34:00 Test Item Value Reference Range Interpretation Comments Magnesium Lvl (test code = Magnesium 1.7 1.8-2.4 Lvl) [facility]2016-12-24 06:34:00 Test Item Value Reference Range Interpretation Comments Phosphorus (test code = Phosphorus) 4.2 2.5-4.5 [facility]EplgdtsMHBPLMRAVPGL5792-22-31 06:34:00 Test Item Value Reference Range Interpretation Comments AGAP (test code = AGAP) 14.3 10.0-20.0 [facility] HospitalKtrintqFUNDAZDIAGVT2429-12-17 06:34:00 Test Item Value Reference Range Interpretation Comments eGFR (test code = eGFR) 41 [facility] HospitalYifhwtpQUQKJYIBUPIV8422-98-36 06:34:00 Test Item Value Reference Range Interpretation Comments Chloride Lvl (test code = Chloride Lvl) 103 95-109 [facility] HospitalMbfjmtiDPROFZUEBFMA8192-19-27 06:34:00 Test Item Value Reference Range Interpretation Comments Calcium Lvl (test code = Calcium Lvl) 8.5 8.5-10.5 [facility] HospitalMzyioxkJKUECTGSFIZS5739-24-85 06:34:00 Test Item Value Reference Range Interpretation Comments CO2 (test code = CO2) 32 24-32 [facility] HospitalXciyawfGCTATCVPDCKA3660-83-38 06:34:00 Test Item Value Reference Range Interpretation Comments Glucose Lvl (test code = Glucose Lvl) 173 70-99 [facility] HospitalPivsypkYDEGMOMYTWFI6943-58-43 06:34:00 Test Item Value Reference Range Interpretation Comments BUN (test code = BUN) 37 7-22 [facility] HospitalEllyohlSQIJDBKHAHHJ9616-99-30 06:34:00 Test Item Value Reference Range Interpretation Comments Creatinine Lvl (test code = Creatinine 1.63 0.50-1.40 Lvl) [facility] HospitalVqvqsgbJWSAPVGXEYKC9983-26-93 06:34:00 Test Item Value Reference Range Interpretation Comments Potassium Lvl (test code = Potassium 4.3 3.5-5.1 Lvl) [facility]NzcgurvCVAGCWARNXPF1660-67-55 06:34:00 Test Item Value Reference Range Interpretation Comments Sodium Lvl (test code = Sodium Lvl) 145 135-145 [facility] VKROO5702-03-16 16:21:00 Test Item Value Reference Range Interpretation Comments Ammonia (test code = Ammonia) 48.[address] [facility] GGHWS8015-14-20 16:21:00 Test Item Value Reference Range Interpretation Comments Ammonia (test code = Ammonia) 48.0 [facility]2016-12-22 16:21:00 Test Item Value Reference Range Interpretation Comments Ammonia (test code = Ammonia) 48.0 [facility] [facility] 16:21:00 Test Item Value Reference Range Interpretation Comments Ammonia (test code = Ammonia) 48.0 [facility] [id number] 16:21:00 Test Item Value Reference Range Interpretation Comments Ammonia (test code = Ammonia) 48.0 [facility]P[id number] 14:56:00 Test Item Value Reference Range Interpretation Comments IVETTE Interp (test code Pattern appears = IVETTE Interp) Nucleolar. [facility] Cent[id number] 14:56:00 Test Item Value Reference Range Interpretation Comments IVETTE Titer (test code = 1:40 *ABN*(06/11/16 IVETTE Titer) 8:56 AM) [facility] CenterRtmnbmgATTARENIWB4732-37-18 14:56:00 Test Item Value Reference Range Interpretation Comments Hep Bs Ag (test code Negative *NA*(06/11/16 = Hep Bs Ag) 8:56 AM) [facility] CenterGsdayxnKZDTBLDZTK8316-44-56 14:56:00 Test Item Value Reference Range Interpretation Comments Hep C Ab (test code = Negative *NA*(06/11/16 Hep C Ab) 8:56 AM) [facility] CenterYrwrydqOTGWEPFABQ2405-56-28 14:56:00 Test Item Value Reference Range Interpretation Comments Hep B Core IgM (test Negative *NA*(06/11/16 code = Hep B Core 8:56 AM) IgM) [facility] CenterLxbmdwhPFYRBTCUXO7238-26-86 14:56:00 Test Item Value Reference Range Interpretation Comments Hep A IgM (test code Negative *NA*(06/11/16 = Hep A IgM) 8:56 AM) [facility] CenterJvszrriJTXARQZAJJ1290-35-44 14:56:00 Test Item Value Reference Range Interpretation Comments HIV Ag/Ab 4th Gen Negative *NA*(06/11/16 (test code = HIV 8:56 AM) Ag/Ab 4th Gen) [facility] CenterEswzvbsNDGYKITAVM0223-44-13 14:56:00 Test Item Value Reference Range Interpretation Comments IVETTE (test code = IVETTE) Positive *ABN*(06/11/16 8:56 AM) [facility] CenterSgzloowQBJIXUIQHF8935-19-56 14:56:00 Test Item Value Reference Range Interpretation Comments IVETTE Interp (test code Pattern appears = IVETTE Interp) Nucleolar. [facility] CenterYcquzruWUYMXEKBZT5147-94-09 14:56:00 Test Item Value Reference Range Interpretation Comments IVETTE Titer (test code = 1:40 *ABN*(06/11/16 IVETTE Titer) 8:56 AM) [facility] CenterAhaysjyNPOGGDXMPA1493-28-43 14:56:00 Test Item Value Reference Range Interpretation Comments Hep Bs Ag (test code Negative *NA*(06/11/16 = Hep Bs Ag) 8:56 AM) [facility] CenterHhsbsfkCGGXTOMQQN1575-63-86 14:56:00 Test Item Value Reference Range Interpretation Comments Hep C Ab (test code = Negative *NA*(06/11/16 Hep C Ab) 8:56 AM) [facility] CenterFqilmiyQBGYDVBNGS3127-90-28 14:56:00 Test Item Value Reference Range Interpretation Comments Hep B Core IgM (test Negative *NA*(06/11/16 code = Hep B Core 8:56 AM) IgM) [facility] CenterXzsksijTWOCRITNJM5726-59-50 14:56:00 Test Item Value Reference Range Interpretation Comments Hep A IgM (test code Negative *NA*(06/11/16 = Hep A IgM) 8:56 AM) [facility] Cent[id number] 14:56:00 Test Item Value Reference Range Interpretation Comments HIV Ag/Ab 4th Gen Negative *NA*(06/11/16 (test code = HIV 8:56 AM) Ag/Ab 4th Gen) [facility] CenterEryaiarZLWQKRTLFY2316-18-10 14:56:00 Test Item Value Reference Range Interpretation Comments IVETTE (test code = IVETTE) Positive *ABN*(06/11/16 8:56 AM) [facility] Cent[id number] 14:56:00 Test Item Value Reference Range Interpretation Comments IVETTE Interp (test code Pattern appears = IVETTE Interp) Nucleolar. [facility] Cent[id number] 14:56:00 Test Item Value Reference Range Interpretation Comments IVETTE Titer (test code = 1:40 *ABN*(06/11/16 IVETTE Titer) 8:56 AM) [facility] Cent[id number] 14:56:00 Test Item Value Reference Range Interpretation Comments Hep Bs Ag (test code Negative *NA*(06/11/16 = Hep Bs Ag) 8:56 AM) [facility] CenterEqnlvkzEBYPDZDFIS4751-17-61 14:56:00 Test Item Value Reference Range Interpretation Comments Hep C Ab (test code = Negative *NA*(06/11/16 Hep C Ab) 8:56 AM) [facility] CenterPpckfqyAFKUHTVBHE1927-36-84 14:56:00 Test Item Value Reference Range Interpretation Comments Hep B Core IgM (test Negative *NA*(06/11/16 code = Hep B Core 8:56 AM) IgM) [facility] Cent[id number] 14:56:00 Test Item Value Reference Range Interpretation Comments Hep A IgM (test code Negative *NA*(06/11/16 = Hep A IgM) 8:56 AM) [facility] CenterMlvxuliLQWQUGGMKO4705-57-41 14:56:00 Test Item Value Reference Range Interpretation Comments HIV Ag/Ab 4th Gen Negative *NA*(06/11/16 (test code = HIV 8:56 AM) Ag/Ab 4th Gen) [facility] CenterSsptjucXKSDTMJNPN5206-26-32 14:56:00 Test Item Value Reference Range Interpretation Comments IVETET (test code = IVETTE) Positive *ABN*(06/11/16 8:56 AM) [facility] CenterVzvicrpUBVTPIGAPJ8673-68-58 14:56:00 Test Item Value Reference Range Interpretation Comments IVETTE Interp (test code Pattern appears = IVETTE Interp) Nucleolar. [facility] CenterOffdmevAFTQECEAJX3270-05-12 14:56:00 Test Item Value Reference Range Interpretation Comments IVETTE Titer (test code = 1:40 *ABN*(06/11/16 IVETTE Titer) 8:56 AM) [facility] Cent[id number] 14:56:00 Test Item Value Reference Range Interpretation Comments Hep Bs Ag (test code Negative *NA*(06/11/16 = Hep Bs Ag) 8:56 AM) [facility] CenterBzxjvqcKDJKTXCWWL1254-55-15 14:56:00 Test Item Value Reference Range Interpretation Comments Hep C Ab (test code = Negative *NA*(06/11/16 Hep C Ab) 8:56 AM) [facility] CenterSsfmhlkWKIXYBTVZR2165-56-76 14:56:00 Test Item Value Reference Range Interpretation Comments Hep B Core IgM (test Negative *NA*(06/11/16 code = Hep B Core 8:56 AM) IgM) [facility] CenterVhpydutNZAYDDWCCL7284-12-14 14:56:00 Test Item Value Reference Range Interpretation Comments Hep A IgM (test code Negative *NA*(06/11/16 = Hep A IgM) 8:56 AM) [facility] CenterXloprirOCUDARDJMQ0023-66-42 14:56:00 Test Item Value Reference Range Interpretation Comments HIV Ag/Ab 4th Gen Negative *NA*(06/11/16 (test code = HIV 8:56 AM) Ag/Ab 4th Gen) [facility] CenterYmoeddkUXYJFZLMIB5442-12-47 14:56:00 Test Item Value Reference Range Interpretation Comments IVETTE (test code = IVETTE) Positive *ABN*(06/11/16 8:56 AM) [facility] CenterPqyvljiEYXZBYIVTZ1614-37-73 14:56:00 Test Item Value Reference Range Interpretation Comments IVETTE Interp (test code Pattern appears = IVETTE Interp) Nucleolar. [facility] CenterLfnquzaRGUFKMWAQC0874-51-45 14:56:00 Test Item Value Reference Range Interpretation Comments IVETTE Titer (test code = 1:40 *ABN*(06/11/16 IVETTE Titer) 8:56 AM) [facility] CenterZxxftznECRSKFFHYJ4752-02-31 14:56:00 Test Item Value Reference Range Interpretation Comments Hep Bs Ag (test code Negative *NA*(06/11/16 = Hep Bs Ag) 8:56 AM) [facility] CenterIelkomcNUJCULNYYK1820-55-42 14:56:00 Test Item Value Reference Range Interpretation Comments Hep C Ab (test code = Negative *NA*(06/11/16 Hep C Ab) 8:56 AM) [facility] CenterZdyladgGTVGEMIHKM0663-66-13 14:56:00 Test Item Value Reference Range Interpretation Comments Hep B Core IgM (test Negative *NA*(06/11/16 code = Hep B Core 8:56 AM) IgM) [facility] CenterVumiopgHVYZIDUTOO6564-92-15 14:56:00 Test Item Value Reference Range Interpretation Comments Hep A IgM (test code Negative *NA*(06/11/16 = Hep A IgM) 8:56 AM) [facility] CenterTavwldtPIEKOLZNUX8957-25-02 14:56:00 Test Item Value Reference Range Interpretation Comments HIV Ag/Ab 4th Gen Negative *NA*(06/11/16 (test code = HIV 8:56 AM) Ag/Ab 4th Gen) [facility]AjrtigzVAYWBXYSTM0328-56-70 14:56:00 Test Item Value Reference Range Interpretation Comments IVETTE (test code = IVTETE) Positive *ABN*(06/11/16 8:56 AM) [facility]2016-12-22 10:42:00 Test Item Value Reference Range Interpretation Comments Bili Total (test code = Bili Total) 0.1 0.2-1.3 [facility]2016-12-22 10:42:00 Test Item Value Reference Range Interpretation Comments Total Protein (test code = Total 5.2 6.4-8.4 Protein) [facility]2016-12-22 10:42:00 Test Item Value Reference Range Interpretation Comments Albumin Lvl (test code = Albumin Lvl) 1.6 3.5-5.0 [facility]2016-12-22 10:42:00 Test Item Value Reference Range Interpretation Comments B/C Ratio (test code = B/C Ratio) 20 6-25 [facility]2016-12-22 10:42:00 Test Item Value Reference Range Interpretation Comments Globulin (test code = Globulin) 3.6 2.7-4.2 [facility]2016-12-22 10:42:00 Test Item Value Reference Range Interpretation Comments A/G Ratio (test code = A/G Ratio) 0.4 0.7-1.6 [facility]2016-12-22 10:42:00 Test Item Value Reference Range Interpretation Comments Alk Phos (test code = Alk Phos) 74 39-136 [facility]2016-12-22 10:42:00 Test Item Value Reference Range Interpretation Comments ALT (test code = ALT) 14 See_Comment [Auto mated message] The system which ge nerated this result transmit rohit reference range : <=65. The reference range was not used to interpr et this result as reji l/abnormal. [facility]2016-12-22 10:42:00 Test Item Value Reference Range Interpretation Comments AST (test code = AST) 13 See_Comment [Auto mated message] The system which ge nerated this result transmit rohit reference range : <=37. The reference range was not used to interpr et this result as reji l/abnormal. [facility]VsrcxrmBOXNAYRFFJ1004-68-29 10:42:00 Test Item Value Reference Range Interpretation Comments INR (test code = INR) 1.06 0.85-1.17 [facility] CampusZiqskdzFMHEOCBLXD5073-04-86 10:42:00 Test Item Value Reference Range Interpretation Comments PT (test code = PT) 14.0 s 12.0-14.7 [facility] CampusAynjllgICPEFABFGA7976-73-70 10:42:00 Test Item Value Reference Range Interpretation Comments PTT (test code = PTT) 36.4 s 22.9-35.8 [facility] KSUCHWRJO9929-28-05 10:42:00 Test Item Value Reference Range Interpretation Comments Hgb A1C (test code = Hgb A1C) 10.5 [facility]2016-12-22 10:42:00 Test Item Value Reference Range Interpretation Comments Bili Total (test code = Bili Total) 0.1 0.2-1.3 [facility]2016-12-22 10:42:00 Test Item Value Reference Range Interpretation Comments Total Protein (test code = Total 5.2 6.4-8.4 Protein) [facility]2016-12-22 10:42:00 Test Item Value Reference Range Interpretation Comments Albumin Lvl (test code = Albumin Lvl) 1.6 3.5-5.0 [facility]2016-12-22 10:42:00 Test Item Value Reference Range Interpretation Comments B/C Ratio (test code = B/C Ratio) 20 6-25 [facility]2016-12-22 10:42:00 Test Item Value Reference Range Interpretation Comments Globulin (test code = Globulin) 3.6 2.7-4.2 [facility]2016-12-22 10:42:00 Test Item Value Reference Range Interpretation Comments A/G Ratio (test code = A/G Ratio) 0.4 0.7-1.6 [facility]2016-12-22 10:42:00 Test Item Value Reference Range Interpretation Comments Alk Phos (test code = Alk Phos) 74 39-136 [facility]2016-12-22 10:42:00 Test Item Value Reference Range Interpretation Comments ALT (test code = ALT) 14 See_Comment [Auto mated message] The system which ge nerated this result transmit rohit reference range : <=65. The reference range was not used to interpr et this result as reji l/abnormal. [facility]2016-12-22 10:42:00 Test Item Value Reference Range Interpretation Comments AST (test code = AST) 13 See_Comment [Auto mated message] The system which ge nerated this result transmit rohit reference range : <=37. The reference range was not used to interpr et this result as reji l/abnormal. [facility] CampusSpustibDKWBBKOZXS9619-87-74 10:42:00 Test Item Value Reference Range Interpretation Comments INR (test code = INR) 1.06 0.85-1.17 [facility] HospitalRtyefegDNWJINIGEO1525-50-53 10:42:00 Test Item Value Reference Range Interpretation Comments PT (test code = PT) 14.0 s 12.0-14.7 [facility] HospitalUvfobewWABFBSVUTW7917-72-59 10:42:00 Test Item Value Reference Range Interpretation Comments PTT (test code = PTT) 36.4 s 22.9-35.8 [facility] HKQKHYWEH1402-17-44 10:42:00 Test Item Value Reference Range Interpretation Comments Hgb A1C (test code = Hgb A1C) 10.5 [facility]2016-12-22 10:42:00 Test Item Value Reference Range Interpretation Comments Bili Total (test code = Bili Total) 0.1 0.2-1.3 [facility]2016-12-22 10:42:00 Test Item Value Reference Range Interpretation Comments Total Protein (test code = Total 5.2 6.4-8.4 Protein) [facility]2016-12-22 10:42:00 Test Item Value Reference Range Interpretation Comments Albumin Lvl (test code = Albumin Lvl) 1.6 3.5-5.0 [place] 440046-12-22 10:42:00 Test Item Value Reference Range Interpretation Comments B/C Ratio (test code = B/C Ratio) 20 6-25 [facility]2016-12-22 10:42:00 Test Item Value Reference Range Interpretation Comments Globulin (test code = Globulin) 3.6 2.7-4.2 [facility]2016-12-22 10:42:00 Test Item Value Reference Range Interpretation Comments A/G Ratio (test code = A/G Ratio) 0.4 0.7-1.6 [facility]2016-12-22 10:42:00 Test Item Value Reference Range Interpretation Comments Alk Phos (test code = Alk Phos) 74 39-136 [facility]2016-12-22 10:42:00 Test Item Value Reference Range Interpretation Comments ALT (test code = ALT) 14 See_Comment [Auto mated message] The system which ge nerated this result transmit rohit reference range : <=65. The reference range was not used to interpr et this result as reji l/abnormal. [facility]2016-12-22 10:42:00 Test Item Value Reference Range Interpretation Comments AST (test code = AST) 13 See_Comment [Auto mated message] The system which ge nerated this result transmit rohit reference range : <=37. The reference range was not used to interpr et this result as reji l/abnormal. [facility] CampusGdifothWIXXOOFYZO6017-60-68 10:42:00 Test Item Value Reference Range Interpretation Comments INR (test code = INR) 1.06 0.85-1.17 [facility] HospitalPabvnawCZWCCGPNUT8570-80-86 10:42:00 Test Item Value Reference Range Interpretation Comments PT (test code = PT) 14.0 s 12.0-14.7 [facility] HospitalMkdfwnmRXZLTQYKVC3455-12-79 10:42:00 Test Item Value Reference Range Interpretation Comments PTT (test code = PTT) 36.4 s 22.9-35.8 [facility] WMPPPBUPY1639-97-95 10:42:00 Test Item Value Reference Range Interpretation Comments Hgb A1C (test code = Hgb A1C) 10.5 [facility]2016-12-22 10:42:00 Test Item Value Reference Range Interpretation Comments Bili Total (test code = Bili Total) 0.1 0.2-1.3 [facility]2016-12-22 10:42:00 Test Item Value Reference Range Interpretation Comments Total Protein (test code = Total 5.2 6.4-8.4 Protein) [facility]2016-12-22 10:42:00 Test Item Value Reference Range Interpretation Comments Albumin Lvl (test code = Albumin Lvl) 1.6 3.5-5.0 [facility]2016-12-22 10:42:00 Test Item Value Reference Range Interpretation Comments B/C Ratio (test code = B/C Ratio) 20 6-25 [place] 440046-12-22 10:42:00 Test Item Value Reference Range Interpretation Comments Globulin (test code = Globulin) 3.6 2.7-4.2 [facility]2016-12-22 10:42:00 Test Item Value Reference Range Interpretation Comments A/G Ratio (test code = A/G Ratio) 0.4 0.7-1.6 [place] 440046-12-22 10:42:00 Test Item Value Reference Range Interpretation Comments Alk Phos (test code = Alk Phos) 74 39-136 [facility]2016-12-22 10:42:00 Test Item Value Reference Range Interpretation Comments ALT (test code = ALT) 14 See_Comment [Auto mated message] The system which ge nerated this result transmit rohit reference range : <=65. The reference range was not used to interpr et this result as reji l/abnormal. [facility]2016-12-22 10:42:00 Test Item Value Reference Range Interpretation Comments AST (test code = AST) 13 See_Comment [Auto mated message] The system which ge nerated this result transmit rohit reference range : <=37. The reference range was not used to interpr et this result as reji l/abnormal. [facility] CampusAdewkgwXLJXUFTYBQ3230-43-54 10:42:00 Test Item Value Reference Range Interpretation Comments INR (test code = INR) 1.06 0.85-1.17 [facility] CampusNuucmnlFGHVMIJCEE1300-35-45 10:42:00 Test Item Value Reference Range Interpretation Comments PT (test code = PT) 14.0 s 12.0-14.[address]12-22 10:42:00 Test Item Value Reference Range Interpretation Comments PTT (test code = PTT) 36.4 s 22.9-35.8 [facility] ZULRRYGKG1159-46-92 10:42:00 Test Item Value Reference Range Interpretation Comments Hgb A1C (test code = Hgb A1C) 10.5 [facility]2016-12-22 10:42:00 Test Item Value Reference Range Interpretation Comments Bili Total (test code = Bili Total) 0.1 0.2-1.3 [facility]2016-12-22 10:42:00 Test Item Value Reference Range Interpretation Comments Total Protein (test code = Total 5.2 6.4-8.4 Protein) [facility]2016-12-22 10:42:00 Test Item Value Reference Range Interpretation Comments Albumin Lvl (test code = Albumin Lvl) 1.6 3.5-5.0 [facility]2016-12-22 10:42:00 Test Item Value Reference Range Interpretation Comments B/C Ratio (test code = B/C Ratio) 20 6-25 [facility]2016-12-22 10:42:00 Test Item Value Reference Range Interpretation Comments Globulin (test code = Globulin) 3.6 2.7-4.2 [facility]2016-12-22 10:42:00 Test Item Value Reference Range Interpretation Comments A/G Ratio (test code = A/G Ratio) 0.4 0.7-1.6 [facility]2016-12-22 10:42:00 Test Item Value Reference Range Interpretation Comments Alk Phos (test code = Alk Phos) 74 39-136 [facility]2016-12-22 10:42:00 Test Item Value Reference Range Interpretation Comments ALT (test code = ALT) 14 See_Comment [Auto mated message] The system which ge nerated this result transmit rohit reference range : <=65. The reference range was not used to interpr et this result as reji l/abnormal. [facility]2016-12-22 10:42:00 Test Item Value Reference Range Interpretation Comments AST (test code = AST) 13 See_Comment [Auto mated message] The system which ge nerated this result transmit rohit reference range : <=37. The reference range was not used to interpr et this result as reji l/abnormal. [facility] HospitalJrurjzhMMNYSFRZHY6793-14-33 10:42:00 Test Item Value Reference Range Interpretation Comments INR (test code = INR) 1.06 0.85-1.17 [facility] HospitalVkesiasSYMVDPWNVO3029-93-67 10:42:00 Test Item Value Reference Range Interpretation Comments PT (test code = PT) 14.0 s 12.0-14.7 [facility] HospitalFnxwwjlXYITWVJUUZ7480-22-65 10:42:00 Test Item Value Reference Range Interpretation Comments PTT (test code = PTT) 36.4 s 22.9-35.8 [facility] [id number] 10:42:00 Test Item Value Reference Range Interpretation Comments Hgb A1C (test code = Hgb A1C) 10.5 [facility] HospitalStyleTechCoffee Meets Bagel [id number] 02:08:00 Test Item Value Reference Range Interpretation Comments CK MB Index (test 1.8 See_Comment [Automate d message] The code = CK MB Index) system w [facility] generated this result transmit rohit reference range : <=2.5. The reference range was not used to interpr et this result as reji l/abnormal. [facility] IAPWRME3388-46-29 02:08:00 Test Item Value Reference Range Interpretation Comments CK MB (test code = CK MB) 2.9 0.5-3.6 [facility] [id number] 02:08:00 Test Item Value Reference Range Interpretation Comments Troponin-T (test code 0.061 See_Comment [Auto mated message] The = Troponin-T) system which g enerated this result transmit rohit reference range : <=0.100. The reference r leo was not used to interpr et this result as reji l/abnormal. [facility] HospitalStyleTechTAYL[facility] [id number] 02:08:00 Test Item Value Reference Range Interpretation Comments Total CK (test code = Total CK) 159 12-191 [facility] YSAKZWN2271-99-02 02:08:00 Test Item Value Reference Range Interpretation Comments Troponin-I (test code no gt See_Comment [Auto mated message] The = Troponin-I) system which g enerated this result transmit rohit reference range : <=0.40. The reference r leo was not used to interpr et this result as reji l/abnormal. [place] 440046-12-22 02:08:00 Test Item Value Reference Range Interpretation Comments Bili Total (test code = Bili Total) 0.2 0.2-1.3 [place] 440046-12-22 02:08:00 Test Item Value Reference Range Interpretation Comments Bili Direct (test code 0.1 See_Comment [Aut omated message] The = Bili Direct) system which generated this result tra nsmitted reference range : <=0.3. The reference r leo was not used to int erpret this result as reji l/abnormal. [place] 440046-12-22 02:08:00 Test Item Value Reference Range Interpretation Comments Bili Indirect (test 0.1 See_Comment [Automa rohit message] The code = Bili Indirect) system which generated this result tra nsmitted reference range : <=1.0. The reference r leo was not used to int erpret this result as normal/abnormal . [facility]2016-12-22 02:08:00 Test Item Value Reference Range Interpretation Comments Total Protein (test code = Total 5.7 6.4-8.4 Protein) [facility]2016-12-22 02:08:00 Test Item Value Reference Range Interpretation Comments A/G Ratio (test code = A/G Ratio) 0.5 0.7-1.6 [place] 440046-12-22 02:08:00 Test Item Value Reference Range Interpretation Comments Albumin Lvl (test code = Albumin Lvl) 1.8 3.5-5.0 [place] 440046-12-22 02:08:00 Test Item Value Reference Range Interpretation Comments Globulin (test code = Globulin) 3.9 2.7-4.2 [place] 440046-12-22 02:08:00 Test Item Value Reference Range Interpretation Comments Alk Phos (test code = Alk Phos) 99 39-136 [place] 440046-12-22 02:08:00 Test Item Value Reference Range Interpretation Comments AST (test code = AST) 21 See_Comment [Auto mated message] The system which ge nerated this result transmit rohit reference range : <=37. The reference range was not used to interpr et this result as reji l/abnormal. [facility] [id number] 02:08:00 Test Item Value Reference Range Interpretation Comments ALT (test code = ALT) 17 See_Comment [Auto mated message] The system which ge nerated this result transmit rohit reference range : <=65. The reference range was not used to interpr et this result as reji l/abnormal. [facility] [id number] 02:08:00 Test Item Value Reference Range Interpretation Comments UDS Note (test code = See Note *NA*(06/10/16 UDS Note) 8:08 PM) [facility] [id number] 02:08:00 Test Item Value Reference Range Interpretation Comments U Propoxyph Scr (test Negative *NA*(06/10/16 code = U Propoxyph Scr) 8:08 PM) [facility] [id number] 02:08:00 Test Item Value Reference Range Interpretation Comments U Opiate Scr (test Negative *NA*(06/10/16 code = U Opiate Scr) 8:08 PM) [facility] [id number] 02:08:00 Test Item Value Reference Range Interpretation Comments U Methadone Scr (test Negative *NA*(06/10/16 code = U Methadone Scr) 8:08 PM) [facility] [id number] 02:08:00 Test Item Value Reference Range Interpretation Comments U Phencyc Scr (test Negative *NA*(06/10/16 code = U Phencyc Scr) 8:08 PM) [facility] [id number] 02:08:00 Test Item Value Reference Range Interpretation Comments U Cannab Scr (test Negative *NA*(06/10/16 code = U Cannab Scr) 8:08 PM) [facility] [id number] 02:08:00 Test Item Value Reference Range Interpretation Comments U Amph Scr (test code Negative *NA*(06/10/16 = U Amph Scr) 8:08 PM) [facility] [id number] 02:08:00 Test Item Value Reference Range Interpretation Comments U Kelly Scr (test code Negative *NA*(06/10/16 = U Kelly Scr) 8:08 PM) [facility] [id number] 02:08:00 Test Item Value Reference Range Interpretation Comments U Benzodia Scr (test Negative *NA*(06/10/16 code = U Benzodia Scr) 8:08 PM) [facility] [id number] 02:08:00 Test Item Value Reference Range Interpretation Comments U Cocaine Scr (test Negative *NA*(06/10/16 code = U Cocaine Scr) 8:08 PM) [id number] 02:08:00 Test Item Value Reference Range Interpretation Comments LDL (Calculated) (test code = LDL 75 (Calculated)) [facility] [id number] 02:08:00 Test Item Value Reference Range Interpretation Comments VLDL (test code = VLDL) 27 [facility] [id number] 02:08:00 Test Item Value Reference Range Interpretation Comments Chol (test code = Chol) [id number] 02:08:00 Test Item Value Reference Range Interpretation Comments Trig (test code = Trig) 133 [facility] [id number] 02:08:00 Test Item Value Reference Range Interpretation Comments CHD Risk (test code = CHD Risk) 4.29 3.90-5.80 [facility] [id number] 02:08:00 Test Item Value Reference Range Interpretation Comments HDL (test code = HDL) 31 [facility] AND [id number] 02:08:00 Test Item Value Reference Range Interpretation Comments UA Urobilinogen (test code = UA <=1.0 mg/dL 0.1-1.0 Urobilinogen) [facility] AND [id number] 02:08:00 Test Item Value Reference Range Interpretation Comments UA Ketones (test code = UA Negative mg/dL Ketones) [facility] [id number] 02:08:00 Test Item Value Reference Range Interpretation Comments UA Glucose (test code = UA Glucose) 300 mg/dL [facility] AND [id number] 02:08:00 Test Item Value Reference Range Interpretation Comments UA Protein (test code = UA >=300 mg/dL Protein) [facility] AND [id number] 02:08:00 Test Item Value Reference Range Interpretation Comments UA pH (test code = UA pH) 6.0 5.0-8.0 [facility] AND [id number] 02:08:00 Test Item Value Reference Range Interpretation Comments UA Nitrite (test code Negative (06/10/16 8:08 = UA Nitrite) PM) [facility] AND [id number] 02:08:00 Test Item Value Reference Range Interpretation Comments UA Blood (test code = Trace *ABN*(06/10/16 UA Blood) 8:08 PM) [facility] AND [id number] 02:08:00 Test Item Value Reference Range Interpretation Comments UA Bili (test code = Negative *NA*(06/10/16 UA Bili) 8:08 PM) [facility] AND [id number] 02:08:00 Test Item Value Reference Range Interpretation Comments UA Mucus (test code = UA Mucus) Few /LPF [facility] AND [id number] 02:08:00 Test Item Value Reference Range Interpretation Comments UA RBC (test code = 4 See_Comment [Automa rohit message] The UA RBC) system which ge nerated this result transmit rohit reference range : <=2. The reference range was not used to interpr et this result as reji l/abnormal. [facility] AND [id number] 02:08:00 Test Item Value Reference Range Interpretation Comments UA Sq Epi (test code = UA Sq Epi) Few /LPF [facility] AND [id number] 02:08:00 Test Item Value Reference Range Interpretation Comments UA WBC (test code = 5 See_Comment [Automa rohit message] The UA WBC) system which ge nerated this result transmit rohit reference range : <=5. The reference range was not used to interpr et this result as reji l/abnormal. [facility] AND [id number] 02:08:00 Test Item Value Reference Range Interpretation Comments UA Leuk Est (test code Small *ABN*(06/10/16 = UA Leuk Est) 8:08 PM) [facility] AND [id number] 02:08:00 Test Item Value Reference Range Interpretation Comments UA Hyal Cast (test 1 See_Comment [Automat ed message] The code = UA Hyal Cast) system which generated this result transmit rohit reference range : <=2. The reference range was not used to interpr et this result as reji l/abnormal. [facility] [id number] 02:08:00 Test Item Value Reference Range Interpretation Comments UA Spec Grav (test code = UA Spec Grav) 1.009 [facility] [id number] 02:08:00 Test Item Value Reference Range Interpretation Comments UA Color (test code = Yellow *NA*(06/10/16 UA Color) 8:08 PM) [facility] [id number] 02:08:00 Test Item Value Reference Range Interpretation Comments UA Turbidity (test code = Clear (06/10/16 8:08 UA Turbidity) PM) [facility] [id number] 02:08:00 Test Item Value Reference Range Interpretation Comments U Preg (test code = U Negative (06/10/16 8:08 Preg) PM) [facility] [id number] 02:08:00 Test Item Value Reference Range Interpretation Comments U Protein (test code = U Protein) 375.4 [facility] [id number] 02:08:00 Test Item Value Reference Range Interpretation Comments U Prot/Creat (test code = U Prot/Creat) 5.4 [facility] [id number] 02:08:00 Test Item Value Reference Range Interpretation Comments U Creatinine (test code = U Creatinine) 69.80 [facility] [id number] 02:08:00 Test Item Value Reference Range Interpretation Comments CK MB Index (test 1.8 See_Comment [Automate d message] The code = CK MB Index) system w [facility] generated this result transmit rohit reference range : <=2.5. The reference range was not used to interpr et this result as reji l/abnormal. [facility] [id number] 02:08:00 Test Item Value Reference Range Interpretation Comments CK MB (test code = CK MB) 2.9 0.5-3.6 [facility] [id number] 02:08:00 Test Item Value Reference Range Interpretation Comments Troponin-T (test code 0.061 See_Comment [Auto mated message] The = Troponin-T) system which g enerated this result transmit rohit reference range : <=0.100. The reference r leo was not used to interpr et this result as reji l/abnormal. [facility] Hospital[facility] [id number] 02:08:00 Test Item Value Reference Range Interpretation Comments Total CK (test code = Total CK) 159 12-191 [facility] [id number] 02:08:00 Test Item Value Reference Range Interpretation Comments Troponin-I (test code no gt See_Comment [Auto mated message] The = Troponin-I) system which g enerated this result transmit rohit reference range : <=0.40. The reference r leo was not used to interpr et this result as reji l/abnormal. [facility] [employer] [id number] 02:08:00 Test Item Value Reference Range Interpretation Comments Bili Total (test code = Bili Total) 0.2 0.2-1.3 [facility] [employer] [id number] 02:08:00 Test Item Value Reference Range Interpretation Comments Bili Direct (test code 0.1 See_Comment [Aut omated message] The = Bili Direct) system which generated this result tra nsmitted reference range : <=0.3. The reference r leo was not used to int erpret this result as reji l/abnormal. [facility] [employer] [id number] 02:08:00 Test Item Value Reference Range Interpretation Comments Bili Indirect (test 0.1 See_Comment [Automa rohit message] The code = Bili Indirect) system which generated this result tra nsmitted reference range : <=1.0. The reference r leo was not used to int erpret this result as normal/abnormal . [facility] [employer] [id number] 02:08:00 Test Item Value Reference Range Interpretation Comments Total Protein (test code = Total 5.7 6.4-8.4 Protein) [facility] [employer] [id number] 02:08:00 Test Item Value Reference Range Interpretation Comments A/G Ratio (test code = A/G Ratio) 0.5 0.7-1.6 [facility] [employer] [id number] 02:08:00 Test Item Value Reference Range Interpretation Comments Albumin Lvl (test code = Albumin Lvl) 1.8 3.5-5.0 [facility] [employer]2016-12-22 02:08:00 Test Item Value Reference Range Interpretation Comments Globulin (test code = Globulin) 3.9 2.7-4.2 [facility] [employer] [id number] 02:08:00 Test Item Value Reference Range Interpretation Comments Alk Phos (test code = Alk Phos) 99 39-136 [facility] [employer] [id number] 02:08:00 Test Item Value Reference Range Interpretation Comments AST (test code = AST) 21 See_Comment [Auto mated message] The system which ge nerated this result transmit rohit reference range : <=37. The reference range was not used to interpr et this result as reji l/abnormal. [facility] [employer] [id number] 02:08:00 Test Item Value Reference Range Interpretation Comments ALT (test code = ALT) 17 See_Comment [Auto mated message] The system which ge nerated this result transmit rohit reference range : <=65. The reference range was not used to interpr et this result as reji l/abnormal. [facility] [employer] [id number] 02:08:00 Test Item Value Reference Range Interpretation Comments UDS Note (test code = See Note *NA*(06/10/16 UDS Note) 8:08 PM) [facility] [employer] [id number] 02:08:00 Test Item Value Reference Range Interpretation Comments U Propoxyph Scr (test Negative *NA*(06/10/16 code = U Propoxyph Scr) 8:08 PM) [facility] [employer] [id number] 02:08:00 Test Item Value Reference Range Interpretation Comments U Opiate Scr (test Negative *NA*(06/10/16 code = U Opiate Scr) 8:08 PM) [facility] [employer] [id number] 02:08:00 Test Item Value Reference Range Interpretation Comments U Methadone Scr (test Negative *NA*(06/10/16 code = U Methadone Scr) 8:08 PM) [facility] [employer] [id number] 02:08:00 Test Item Value Reference Range Interpretation Comments U Phencyc Scr (test Negative *NA*(06/10/16 code = U Phencyc Scr) 8:08 PM) [facility] [employer] [id number] 02:08:00 Test Item Value Reference Range Interpretation Comments U Cannab Scr (test Negative *NA*(06/10/16 code = U Cannab Scr) 8:08 PM) [facility] [id number] 02:08:00 Test Item Value Reference Range Interpretation Comments U Amph Scr (test code Negative *NA*(06/10/16 = U Amph Scr) 8:08 PM) [facility] [id number] 02:08:00 Test Item Value Reference Range Interpretation Comments U Kelly Scr (test code Negative *NA*(06/10/16 = U Kelly Scr) 8:08 PM) [facility] [id number] 02:08:00 Test Item Value Reference Range Interpretation Comments U Benzodia Scr (test Negative *NA*(06/10/16 code = U Benzodia Scr) 8:08 PM) [facility] [id number] 02:08:00 Test Item Value Reference Range Interpretation Comments U Cocaine Scr (test Negative *NA*(06/10/16 code = U Cocaine Scr) 8:08 PM) [facility] [id number] 02:08:00 Test Item Value Reference Range Interpretation Comments LDL (Calculated) (test code = LDL 75 (Calculated)) [facility] [id number] 02:08:00 Test Item Value Reference Range Interpretation Comments VLDL (test code = VLDL) 27 [facility] [id number] 02:08:00 Test Item Value Reference Range Interpretation Comments Chol (test code = Chol) 133 [facility] [id number] 02:08:00 Test Item Value Reference Range Interpretation Comments Trig (test code = Trig) 133 [facility] [id number] 02:08:00 Test Item Value Reference Range Interpretation Comments CHD Risk (test code = CHD Risk) 4.29 3.90-5.80 [facility] [id number] 02:08:00 Test Item Value Reference Range Interpretation Comments HDL (test code = HDL) 31 [facility] [id number] 02:08:00 Test Item Value Reference Range Interpretation Comments UA Urobilinogen (test code = UA <=1.0 mg/dL 0.1-1.0 Urobilinogen) [facility] [id number] 02:08:00 Test Item Value Reference Range Interpretation Comments UA Ketones (test code = UA Negative mg/dL Ketones) [facility] AND [id number] 02:08:00 Test Item Value Reference Range Interpretation Comments UA Glucose (test code = UA Glucose) 300 mg/dL [facility] AND [id number] 02:08:00 Test Item Value Reference Range Interpretation Comments UA Protein (test code = UA >=300 mg/dL Protein) [facility] AND [id number] 02:08:00 Test Item Value Reference Range Interpretation Comments UA pH (test code = UA pH) 6.0 5.0-8.0 [facility] AND [id number] 02:08:00 Test Item Value Reference Range Interpretation Comments UA Nitrite (test code Negative (06/10/16 8:08 = UA Nitrite) PM) [facility] AND [id number] 02:08:00 Test Item Value Reference Range Interpretation Comments UA Blood (test code = Trace *ABN*(06/10/16 UA Blood) 8:08 PM) [facility] AND [id number] 02:08:00 Test Item Value Reference Range Interpretation Comments UA Bili (test code = Negative *NA*(06/10/16 UA Bili) 8:08 PM) [facility] AND [id number] 02:08:00 Test Item Value Reference Range Interpretation Comments UA Mucus (test code = UA Mucus) Few /LPF [facility] AND [id number] 02:08:00 Test Item Value Reference Range Interpretation Comments UA RBC (test code = 4 See_Comment [Automa rohit message] The UA RBC) system which ge nerated this result transmit rohit reference range : <=2. The reference range was not used to interpr et this result as reji l/abnormal. [facility] AND [id number] 02:08:00 Test Item Value Reference Range Interpretation Comments UA Sq Epi (test code = UA Sq Epi) Few /LPF [facility] AND [id number] 02:08:00 Test Item Value Reference Range Interpretation Comments UA WBC (test code = 5 See_Comment [Automa rohit message] The UA WBC) system which ge nerated this result transmit rohit reference range : <=5. The reference range was not used to interpr et this result as reji l/abnormal. [facility] [id number] 02:08:00 Test Item Value Reference Range Interpretation Comments UA Leuk Est (test code Small *ABN*(06/10/16 = UA Leuk Est) 8:08 PM) [facility] [id number] 02:08:00 Test Item Value Reference Range Interpretation Comments UA Hyal Cast (test 1 See_Comment [Automat ed message] The code = UA Hyal Cast) system which generated this result transmit rohit reference range : <=2. The reference range was not used to interpr et this result as reji l/abnormal. [facility] [id number] 02:08:00 Test Item Value Reference Range Interpretation Comments UA Spec Grav (test code = UA Spec Grav) 1.009 [facility] [id number] 02:08:00 Test Item Value Reference Range Interpretation Comments UA Color (test code = Yellow *NA*(06/10/16 UA Color) 8:08 PM) [facility] [id number] 02:08:00 Test Item Value Reference Range Interpretation Comments UA Turbidity (test code = Clear (06/10/16 8:08 UA Turbidity) PM) [facility] [id number] 02:08:00 Test Item Value Reference Range Interpretation Comments U Preg (test code = U Negative (06/10/16 8:08 Preg) PM) [facility] [id number] 02:08:00 Test Item Value Reference Range Interpretation Comments U Protein (test code = U Protein) 375.4 [facility] [id number] 02:08:00 Test Item Value Reference Range Interpretation Comments U Prot/Creat (test code = U Prot/Creat) 5.4 [facility] [id number] 02:08:00 Test Item Value Reference Range Interpretation Comments U Creatinine (test code = U Creatinine) 69.80 [facility] [id number] 02:08:00 Test Item Value Reference Range Interpretation Comments CK MB Index (test 1.8 See_Comment [Automate d message] The code = CK MB Index) system w [facility] generated this result transmit rohit reference range : <=2.5. The reference range was not used to interpr et this result as reji l/abnormal. [facility] [employer]2016-12-22 02:08:00 Test Item Value Reference Range Interpretation Comments CK MB (test code = CK MB) 2.9 0.5-3.6 [facility] [id number] 02:08:00 Test Item Value Reference Range Interpretation Comments Troponin-T (test code 0.061 See_Comment [Auto mated message] The = Troponin-T) system which g enerated this result transmit rohit reference range : <=0.100. The reference r leo was not used to interpr et this result as reji l/abnormal. [facility] [employer]2016-12-22 02:08:00 Test Item Value Reference Range Interpretation Comments Total CK (test code = Total CK) 159 12-191 [facility] [employer]2016-12-22 02:08:00 Test Item Value Reference Range Interpretation Comments Troponin-I (test code no gt See_Comment [Auto mated message] The = Troponin-I) system which g enerated this result transmit rohit reference range : <=0.40. The reference r leo was not used to interpr et this result as reji l/abnormal. [facility] [employer]2016-12-22 02:08:00 Test Item Value Reference Range Interpretation Comments Bili Total (test code = Bili Total) 0.2 0.2-1.3 [facility] [employer]2016-12-22 02:08:00 Test Item Value Reference Range Interpretation Comments Bili Direct (test code 0.1 See_Comment [Aut omated message] The = Bili Direct) system which generated this result tra nsmitted reference range : <=0.3. The reference r leo was not used to int erpret this result as reji l/abnormal. [facility] [employer]2016-12-22 02:08:00 Test Item Value Reference Range Interpretation Comments Bili Indirect (test 0.1 See_Comment [Automa rohit message] The code = Bili Indirect) system which generated this result tra nsmitted reference range : <=1.0. The reference r leo was not used to int erpret this result as normal/abnormal . [employer]2016-12-22 02:08:00 Test Item Value Reference Range Interpretation Comments Total Protein (test code = Total 5.7 6.4-8.4 Protein) [facility] [employer] [id number] 02:08:00 Test Item Value Reference Range Interpretation Comments A/G Ratio (test code = A/G Ratio) 0.5 0.7-1.6 [facility] HospitalComp[facility] [id number] 02:08:00 Test Item Value Reference Range Interpretation Comments Albumin Lvl (test code = Albumin Lvl) 1.8 3.5-5.0 [facility] [employer] [id number] 02:08:00 Test Item Value Reference Range Interpretation Comments Globulin (test code = Globulin) 3.9 2.7-4.2 [facility] [employer] [id number] 02:08:00 Test Item Value Reference Range Interpretation Comments Alk Phos (test code = Alk Phos) 99 39-136 [facility] [id number] 02:08:00 Test Item Value Reference Range Interpretation Comments AST (test code = AST) 21 See_Comment [Auto mated message] The system which ge nerated this result transmit rohit reference range : <=37. The reference range was not used to interpr et this result as reji l/abnormal. [facility] [employer] [id number] 02:08:00 Test Item Value Reference Range Interpretation Comments ALT (test code = ALT) 17 See_Comment [Auto mated message] The system which ge nerated this result transmit rohit reference range : <=65. The reference range was not used to interpr et this result as reji l/abnormal. [facility] [employer] [id number] 02:08:00 Test Item Value Reference Range Interpretation Comments UDS Note (test code = See Note *NA*(06/10/16 UDS Note) 8:08 PM) [facility] [employer]2016-12-22 02:08:00 Test Item Value Reference Range Interpretation Comments U Propoxyph Scr (test Negative *NA*(06/10/16 code = U Propoxyph Scr) 8:08 PM) [facility] HospitalLittle Big [id number] 02:08:00 Test Item Value Reference Range Interpretation Comments U Opiate Scr (test Negative *NA*(06/10/16 code = U Opiate Scr) 8:08 PM) [facility] [id number] 02:08:00 Test Item Value Reference Range Interpretation Comments U Methadone Scr (test Negative *NA*(06/10/16 code = U Methadone Scr) 8:08 PM) [facility] [id number] 02:08:00 Test Item Value Reference Range Interpretation Comments U Phencyc Scr (test Negative *NA*(06/10/16 code = U Phencyc Scr) 8:08 PM) [facility] [id number] 02:08:00 Test Item Value Reference Range Interpretation Comments U Cannab Scr (test Negative *NA*(06/10/16 code = U Cannab Scr) 8:08 PM) [facility] [id number] 02:08:00 Test Item Value Reference Range Interpretation Comments U Amph Scr (test code Negative *NA*(06/10/16 = U Amph Scr) 8:08 PM) [facility] [id number] 02:08:00 Test Item Value Reference Range Interpretation Comments U Kelly Scr (test code Negative *NA*(06/10/16 = U Kelly Scr) 8:08 PM) [facility] [id number] 02:08:00 Test Item Value Reference Range Interpretation Comments U Benzodia Scr (test Negative *NA*(06/10/16 code = U Benzodia Scr) 8:08 PM) [facility] [id number] 02:08:00 Test Item Value Reference Range Interpretation Comments U Cocaine Scr (test Negative *NA*(06/10/16 code = U Cocaine Scr) 8:08 PM) [facility] [id number] 02:08:00 Test Item Value Reference Range Interpretation Comments LDL (Calculated) (test code = LDL 75 (Calculated)) [facility] [id number] 02:08:00 Test Item Value Reference Range Interpretation Comments VLDL (test code = VLDL) 27 [facility] [id number] 02:08:00 Test Item Value Reference Range Interpretation Comments Chol (test code = Chol) 133 [facility] [id number] 02:08:00 Test Item Value Reference Range Interpretation Comments Trig (test code = Trig) 133 [facility] [id number] 02:08:00 Test Item Value Reference Range Interpretation Comments CHD Risk (test code = CHD Risk) 4.29 3.90-5.80 [facility] [id number] 02:08:00 Test Item Value Reference Range Interpretation Comments HDL (test code = HDL) 31 [facility] AND [id number] 02:08:00 Test Item Value Reference Range Interpretation Comments UA Urobilinogen (test code = UA <=1.0 mg/dL 0.1-1.0 Urobilinogen) [facility] AND [id number] 02:08:00 Test Item Value Reference Range Interpretation Comments UA Ketones (test code = UA Negative mg/dL Ketones) [facility] AND [id number] 02:08:00 Test Item Value Reference Range Interpretation Comments UA Glucose (test code = UA Glucose) 300 mg/dL [facility] AND [id number] 02:08:00 Test Item Value Reference Range Interpretation Comments UA Protein (test code = UA >=300 mg/dL Protein) [facility] AND [id number] 02:08:00 Test Item Value Reference Range Interpretation Comments UA pH (test code = UA pH) 6.0 5.0-8.0 [facility] AND [id number] 02:08:00 Test Item Value Reference Range Interpretation Comments UA Nitrite (test code Negative (06/10/16 8:08 = UA Nitrite) PM) [facility] AND [id number] 02:08:00 Test Item Value Reference Range Interpretation Comments UA Blood (test code = Trace *ABN*(06/10/16 UA Blood) 8:08 PM) [facility] AND [id number] 02:08:00 Test Item Value Reference Range Interpretation Comments UA Bili (test code = Negative *NA*(06/10/16 UA Bili) 8:08 PM) [facility] AND [id number] 02:08:00 Test Item Value Reference Range Interpretation Comments UA Mucus (test code = UA Mucus) Few /LPF [facility] AND [id number] 02:08:00 Test Item Value Reference Range Interpretation Comments UA RBC (test code = 4 See_Comment [Automa rohit message] The UA RBC) system which ge nerated this result transmit rohit reference range : <=2. The reference range was not used to interpr et this result as reji l/abnormal. [facility] [id number] 02:08:00 Test Item Value Reference Range Interpretation Comments UA Sq Epi (test code = UA Sq Epi) Few /LPF [facility] [id number] 02:08:00 Test Item Value Reference Range Interpretation Comments UA WBC (test code = 5 See_Comment [Automa rohit message] The UA WBC) system which ge nerated this result transmit rohit reference range : <=5. The reference range was not used to interpr et this result as reji l/abnormal. [facility] Katelyn AND [id number] 02:08:00 Test Item Value Reference Range Interpretation Comments UA Leuk Est (test code Small *ABN*(06/10/16 = UA Leuk Est) 8:08 PM) [facility] [id number] 02:08:00 Test Item Value Reference Range Interpretation Comments UA Hyal Cast (test 1 See_Comment [Automat ed message] The code = UA Hyal Cast) system which generated this result transmit rohit reference range : <=2. The reference range was not used to interpr et this result as reji l/abnormal. [facility] [id number] 02:08:00 Test Item Value Reference Range Interpretation Comments UA Spec Grav (test code = UA Spec Grav) 1.009 [facility] [id number] 02:08:00 Test Item Value Reference Range Interpretation Comments UA Color (test code = Yellow *NA*(06/10/16 UA Color) 8:08 PM) [facility] AND [id number] 02:08:00 Test Item Value Reference Range Interpretation Comments UA Turbidity (test code = Clear (06/10/16 8:08 UA Turbidity) PM) [facility]2016-12-22 02:08:00 Test Item Value Reference Range Interpretation Comments U Preg (test code = U Negative (06/10/16 8:08 Preg) PM) [facility]2016-12-22 02:08:00 Test Item Value Reference Range Interpretation Comments U Protein (test code = U Protein) 375.4 [facility]2016-12-22 02:08:00 Test Item Value Reference Range Interpretation Comments U Prot/Creat (test code = U Prot/Creat) 5.4 [facility]URINE [id number] 02:08:00 Test Item Value Reference Range Interpretation Comments U Creatinine (test code = U Creatinine) 69.80 [facility] [id number] 02:08:00 Test Item Value Reference Range Interpretation Comments CK MB Index (test 1.8 See_Comment [Automate d message] The code = CK MB Index) system w [facility] generated this result transmit rohit reference range : <=2.5. The reference range was not used to interpr et this result as reji l/abnormal. [facility] KinematixannCARDIAC [id number] 02:08:00 Test Item Value Reference Range Interpretation Comments CK MB (test code = CK MB) 2.9 0.5-3.6 [facility] [id number] 02:08:00 Test Item Value Reference Range Interpretation Comments Troponin-T (test code 0.061 See_Comment [Auto mated message] The = Troponin-T) system which g enerated this result transmit rohit reference range : <=0.100. The reference r leo was not used to interpr et this result as reji l/abnormal. [facility] KinematixannCARSparxentAC [id number] 02:08:00 Test Item Value Reference Range Interpretation Comments Total CK (test code = Total CK) 159 12-191 [facility] KinematixannCARSparxentAC [id number] 02:08:00 Test Item Value Reference Range Interpretation Comments Troponin-I (test code no gt See_Comment [Auto mated message] The = Troponin-I) system which g enerated this result transmit rohit reference range : <=0.40. The reference r leo was not used to interpr et this result as reji l/abnormal. [facility] [employer] MachinesCHEM [id number] 02:08:00 Test Item Value Reference Range Interpretation Comments Bili Total (test code = Bili Total) 0.2 0.2-1.3 [facility] MachinesCHEM [id number] 02:08:00 Test Item Value Reference Range Interpretation Comments Bili Direct (test code 0.1 See_Comment [Aut omated message] The = Bili Direct) system which generated this result tra nsmitted reference range : <=0.3. The reference r leo was not used to int erpret this result as reji l/abnormal. [facility] [employer] [id number] 02:08:00 Test Item Value Reference Range Interpretation Comments Bili Indirect (test 0.1 See_Comment [Automa rohit message] The code = Bili Indirect) system which generated this result tra nsmitted reference range : <=1.0. The reference r leo was not used to int erpret this result as normal/abnormal . [facility] [employer] [id number] 02:08:00 Test Item Value Reference Range Interpretation Comments Total Protein (test code = Total 5.7 6.4-8.4 Protein) [facility] [employer] [id number] 02:08:00 Test Item Value Reference Range Interpretation Comments A/G Ratio (test code = A/G Ratio) 0.5 0.7-1.6 [facility] [employer] [id number] 02:08:00 Test Item Value Reference Range Interpretation Comments Albumin Lvl (test code = Albumin Lvl) 1.8 3.5-5.0 [facility] [employer] [id number] 02:08:00 Test Item Value Reference Range Interpretation Comments Globulin (test code = Globulin) 3.9 2.7-4.2 [facility] [employer] [id number] 02:08:00 Test Item Value Reference Range Interpretation Comments Alk Phos (test code = Alk Phos) 99 39-136 [facility] [employer] [id number] 02:08:00 Test Item Value Reference Range Interpretation Comments AST (test code = AST) 21 See_Comment [Auto mated message] The system which ge nerated this result transmit rohit reference range : <=37. The reference range was not used to interpr et this result as reji l/abnormal. [facility] [employer] [id number] 02:08:00 Test Item Value Reference Range Interpretation Comments ALT (test code = ALT) 17 See_Comment [Auto mated message] The system which ge nerated this result transmit rohit reference range : <=65. The reference range was not used to interpr et this result as reji l/abnormal. [facility] Soft [facility]inesLA[facility] [id number] 02:08:00 Test Item Value Reference Range Interpretation Comments UDS Note (test code = See Note *NA*(06/10/16 UDS Note) 8:08 PM) [facility] [id number] 02:08:00 Test Item Value Reference Range Interpretation Comments U Propoxyph Scr (test Negative *NA*(06/10/16 code = U Propoxyph Scr) 8:08 PM) [facility] [id number] 02:08:00 Test Item Value Reference Range Interpretation Comments U Opiate Scr (test Negative *NA*(06/10/16 code = U Opiate Scr) 8:08 PM) [facility] [id number] 02:08:00 Test Item Value Reference Range Interpretation Comments U Methadone Scr (test Negative *NA*(06/10/16 code = U Methadone Scr) 8:08 PM) [facility] [id number] 02:08:00 Test Item Value Reference Range Interpretation Comments U Phencyc Scr (test Negative *NA*(06/10/16 code = U Phencyc Scr) 8:08 PM) [facility] [id number] 02:08:00 Test Item Value Reference Range Interpretation Comments U Cannab Scr (test Negative *NA*(06/10/16 code = U Cannab Scr) 8:08 PM) [facility] [id number] 02:08:00 Test Item Value Reference Range Interpretation Comments U Amph Scr (test code Negative *NA*(06/10/16 = U Amph Scr) 8:08 PM) [facility] [id number] 02:08:00 Test Item Value Reference Range Interpretation Comments U Kelly Scr (test code Negative *NA*(06/10/16 = U Kelly Scr) 8:08 PM) [facility] [id number] 02:08:00 Test Item Value Reference Range Interpretation Comments U Benzodia Scr (test Negative *NA*(06/10/16 code = U Benzodia Scr) 8:08 PM) [facility] [id number] 02:08:00 Test Item Value Reference Range Interpretation Comments U Cocaine Scr (test Negative *NA*(06/10/16 code = U Cocaine Scr) 8:08 PM) [facility] [id number] 02:08:00 Test Item Value Reference Range Interpretation Comments LDL (Calculated) (test code = LDL 75 (Calculated)) [id number] 02:08:00 Test Item Value Reference Range Interpretation Comments VLDL (test code = VLDL) 27 [id number] 02:08:00 Test Item Value Reference Range Interpretation Comments Chol (test code = Chol) 133 [facility] [id number] 02:08:00 Test Item Value Reference Range Interpretation Comments Trig (test code = Trig) 133 [facility] [id number] 02:08:00 Test Item Value Reference Range Interpretation Comments CHD Risk (test code = CHD Risk) 4.29 3.90-5.80 [facility] Cent[id number] 02:08:00 Test Item Value Reference Range Interpretation Comments HDL (test code = HDL) 31 [facility] AND [id number] 02:08:00 Test Item Value Reference Range Interpretation Comments UA Urobilinogen (test code = UA <=1.0 mg/dL 0.1-1.0 Urobilinogen) [facility] AND [id number] 02:08:00 Test Item Value Reference Range Interpretation Comments UA Ketones (test code = UA Negative mg/dL Ketones) [facility] AND [id number] 02:08:00 Test Item Value Reference Range Interpretation Comments UA Glucose (test code = UA Glucose) 300 mg/dL [facility] AND [id number] 02:08:00 Test Item Value Reference Range Interpretation Comments UA Protein (test code = UA >=300 mg/dL Protein) [facility] AND [id number] 02:08:00 Test Item Value Reference Range Interpretation Comments UA pH (test code = UA pH) 6.0 5.0-8.0 [facility] AND [id number] 02:08:00 Test Item Value Reference Range Interpretation Comments UA Nitrite (test code Negative (06/10/16 8:08 = UA Nitrite) PM) [facility] AND [id number] 02:08:00 Test Item Value Reference Range Interpretation Comments UA Blood (test code = Trace *ABN*(06/10/16 UA Blood) 8:08 PM) [facility] AND [id number] 02:08:00 Test Item Value Reference Range Interpretation Comments UA Bili (test code = Negative *NA*(06/10/16 UA Bili) 8:08 PM) [facility] [id number] 02:08:00 Test Item Value Reference Range Interpretation Comments UA Mucus (test code = UA Mucus) Few /LPF [facility] AND [id number] 02:08:00 Test Item Value Reference Range Interpretation Comments UA RBC (test code = 4 See_Comment [Automa rohit message] The UA RBC) system which ge nerated this result transmit rohit reference range : <=2. The reference range was not used to interpr et this result as reji l/abnormal. [facility] AND [id number] 02:08:00 Test Item Value Reference Range Interpretation Comments UA Sq Epi (test code = UA Sq Epi) Few /LPF [facility] [id number] 02:08:00 Test Item Value Reference Range Interpretation Comments UA WBC (test code = 5 See_Comment [Automa rohit message] The UA WBC) system which ge nerated this result transmit rohit reference range : <=5. The reference range was not used to interpr et this result as reji l/abnormal. [facility]URINE AND [id number] 02:08:00 Test Item Value Reference Range Interpretation Comments UA Leuk Est (test code Small *ABN*(06/10/16 = UA Leuk Est) 8:08 PM) [facility] [id number] 02:08:00 Test Item Value Reference Range Interpretation Comments UA Hyal Cast (test 1 See_Comment [Automat ed message] The code = UA Hyal Cast) system which generated this result transmit rohit reference range : <=2. The reference range was not used to interpr et this result as reji l/abnormal. [facility] AND [id number] 02:08:00 Test Item Value Reference Range Interpretation Comments UA Spec Grav (test code = UA Spec Grav) 1.009 [facility] AND [id number] 02:08:00 Test Item Value Reference Range Interpretation Comments UA Color (test code = Yellow *NA*(06/10/16 UA Color) 8:08 PM) [facility] AND [id number] 02:08:00 Test Item Value Reference Range Interpretation Comments UA Turbidity (test code = Clear (06/10/16 8:08 UA Turbidity) PM) [facility]World [facility]SA[facility] [id number] 02:08:00 Test Item Value Reference Range Interpretation Comments U Preg (test code = U Negative (06/10/16 8:08 Preg) PM) [facility] [id number] 02:08:00 Test Item Value Reference Range Interpretation Comments U Protein (test code = U Protein) 375.4 [facility] [id number] 02:08:00 Test Item Value Reference Range Interpretation Comments U Prot/Creat (test code = U Prot/Creat) 5.4 [facility] [id number] 02:08:00 Test Item Value Reference Range Interpretation Comments U Creatinine (test code = U Creatinine) 69.80 [facility] [id number] 02:08:00 Test Item Value Reference Range Interpretation Comments CK MB Index (test 1.8 See_Comment [Automate d message] The code = CK MB Index) system w [facility] generated this result transmit rohit reference range : <=2.5. The reference range was not used to interpr et this result as reji l/abnormal. [facility] [employer]2016-12-22 02:08:00 Test Item Value Reference Range Interpretation Comments CK MB (test code = CK MB) 2.9 0.5-3.6 [facility] Hospit[id number] 02:08:00 Test Item Value Reference Range Interpretation Comments Troponin-T (test code 0.061 See_Comment [Auto mated message] The = Troponin-T) system which g enerated this result transmit rohit reference range : <=0.100. The reference r leo was not used to interpr et this result as reji l/abnormal. [facility] [employer]2016-12-22 02:08:00 Test Item Value Reference Range Interpretation Comments Total CK (test code = Total CK) 159 12-191 [facility] HospitalAt[facility] Systems2016-12-22 02:08:00 Test Item Value Reference Range Interpretation Comments Troponin-I (test code no gt See_Comment [Auto mated message] The = Troponin-I) system which g enerated this result transmit rohit reference range : <=0.40. The reference r leo was not used to interpr et this result as reji l/abnormal. [place] [id number] 02:08:00 Test Item Value Reference Range Interpretation Comments Bili Total (test code = Bili Total) 0.2 0.2-1.[address]12-22 02:08:00 Test Item Value Reference Range Interpretation Comments Bili Direct (test code 0.1 See_Comment [Aut omated message] The = Bili Direct) system which generated this result tra nsmitted reference range : <=0.3. The reference r leo was not used to int erpret this result as reji l/abnormal. [place] [id number] 02:08:00 Test Item Value Reference Range Interpretation Comments Bili Indirect (test 0.1 See_Comment [Automa rohit message] The code = Bili Indirect) system which generated this result tra nsmitted reference range : <=1.0. The reference r leo was not used to int erpret this result as normal/abnormal . [place] [id number] 02:08:00 Test Item Value Reference Range Interpretation Comments Total Protein (test code = Total 5.7 6.4-8.4 Protein) [place] [id number] 02:08:00 Test Item Value Reference Range Interpretation Comments A/G Ratio (test code = A/G Ratio) 0.5 0.7-1.6 [place] [id number] 02:08:00 Test Item Value Reference Range Interpretation Comments Albumin Lvl (test code = Albumin Lvl) 1.8 3.5-5.0 [place] [id number] 02:08:00 Test Item Value Reference Range Interpretation Comments Globulin (test code = Globulin) 3.9 2.7-4.2 [place] [id number] 02:08:00 Test Item Value Reference Range Interpretation Comments Alk Phos (test code = Alk Phos) 99 39-136 [place] [id number] 02:08:00 Test Item Value Reference Range Interpretation Comments AST (test code = AST) 21 See_Comment [Auto mated message] The system which ge nerated this result transmit rohit reference range : <=37. The reference range was not used to interpr et this result as reji l/abnormal. [facility] KinematixannCHEM [id number] 02:08:00 Test Item Value Reference Range Interpretation Comments ALT (test code = ALT) 17 See_Comment [Auto mated message] The system which ge nerated this result transmit rohit reference range : <=65. The reference range was not used to interpr et this result as reji l/abnormal. [facility] [id number] 02:08:00 Test Item Value Reference Range Interpretation Comments UDS Note (test code = See Note *NA*(06/10/16 UDS Note) 8:08 PM) [facility] [id number] 02:08:00 Test Item Value Reference Range Interpretation Comments U Propoxyph Scr (test Negative *NA*(06/10/16 code = U Propoxyph Scr) 8:08 PM) [facility] [id number] 02:08:00 Test Item Value Reference Range Interpretation Comments U Opiate Scr (test Negative *NA*(06/10/16 code = U Opiate Scr) 8:08 PM) [facility] [id number] 02:08:00 Test Item Value Reference Range Interpretation Comments U Methadone Scr (test Negative *NA*(06/10/16 code = U Methadone Scr) 8:08 PM) [facility] [id number] 02:08:00 Test Item Value Reference Range Interpretation Comments U Phencyc Scr (test Negative *NA*(06/10/16 code = U Phencyc Scr) 8:08 PM) [facility] [id number] 02:08:00 Test Item Value Reference Range Interpretation Comments U Cannab Scr (test Negative *NA*(06/10/16 code = U Cannab Scr) 8:08 PM) [facility] [id number] 02:08:00 Test Item Value Reference Range Interpretation Comments U Amph Scr (test code Negative *NA*(06/10/16 = U Amph Scr) 8:08 PM) [facility] [id number] 02:08:00 Test Item Value Reference Range Interpretation Comments U Kelly Scr (test code Negative *NA*(06/10/16 = U Kelly Scr) 8:08 PM) [facility] [id number] 02:08:00 Test Item Value Reference Range Interpretation Comments U Benzodia Scr (test Negative *NA*(06/10/16 code = U Benzodia Scr) 8:08 PM) [facility] BossmanannDRUG [id number] 02:08:00 Test Item Value Reference Range Interpretation Comments U Cocaine Scr (test Negative *NA*(06/10/16 code = U Cocaine Scr) 8:08 PM) [facility] [id number] 02:08:00 Test Item Value Reference Range Interpretation Comments LDL (Calculated) (test code = LDL 75 (Calculated)) [facility] [id number] 02:08:00 Test Item Value Reference Range Interpretation Comments VLDL (test code = VLDL) 27 [facility] [id number] 02:08:00 Test Item Value Reference Range Interpretation Comments Chol (test code = Chol) 133 [facility] [id number] 02:08:00 Test Item Value Reference Range Interpretation Comments Trig (test code = Trig) 133 [facility] [id number] 02:08:00 Test Item Value Reference Range Interpretation Comments CHD Risk (test code = CHD Risk) 4.29 3.90-5.80 [facility] [id number] 02:08:00 Test Item Value Reference Range Interpretation Comments HDL (test code = HDL) 31 [facility] [id number] 02:08:00 Test Item Value Reference Range Interpretation Comments UA Urobilinogen (test code = UA <=1.0 mg/dL 0.1-1.0 Urobilinogen) [facility] AND [id number] 02:08:00 Test Item Value Reference Range Interpretation Comments UA Ketones (test code = UA Negative mg/dL Ketones) [facility] [id number] 02:08:00 Test Item Value Reference Range Interpretation Comments UA Glucose (test code = UA Glucose) 300 mg/dL [facility] AND [id number] 02:08:00 Test Item Value Reference Range Interpretation Comments UA Protein (test code = UA >=300 mg/dL Protein) [facility] AND [id number] 02:08:00 Test Item Value Reference Range Interpretation Comments UA pH (test code = UA pH) 6.0 5.0-8.0 [facility] AND [id number] 02:08:00 Test Item Value Reference Range Interpretation Comments UA Nitrite (test code Negative (06/10/16 8:08 = UA Nitrite) PM) [facility] AND [id number] 02:08:00 Test Item Value Reference Range Interpretation Comments UA Blood (test code = Trace *ABN*(06/10/16 UA Blood) 8:08 PM) [facility] AND [id number] 02:08:00 Test Item Value Reference Range Interpretation Comments UA Bili (test code = Negative *NA*(06/10/16 UA Bili) 8:08 PM) [facility] AND [id number] 02:08:00 Test Item Value Reference Range Interpretation Comments UA Mucus (test code = UA Mucus) Few /LPF [facility] AND [id number] 02:08:00 Test Item Value Reference Range Interpretation Comments UA RBC (test code = 4 See_Comment [Automa rohit message] The UA RBC) system which ge nerated this result transmit rohit reference range : <=2. The reference range was not used to interpr et this result as reji l/abnormal. [facility] AND [id number] 02:08:00 Test Item Value Reference Range Interpretation Comments UA Sq Epi (test code = UA Sq Epi) Few /LPF [facility] AND [id number] 02:08:00 Test Item Value Reference Range Interpretation Comments UA WBC (test code = 5 See_Comment [Automa rohit message] The UA WBC) system which ge nerated this result transmit rohit reference range : <=5. The reference range was not used to interpr et this result as reji l/abnormal. [facility] AND [id number] 02:08:00 Test Item Value Reference Range Interpretation Comments UA Leuk Est (test code Small *ABN*(06/10/16 = UA Leuk Est) 8:08 PM) [facility] AND [id number] 02:08:00 Test Item Value Reference Range Interpretation Comments UA Hyal Cast (test 1 See_Comment [Automat ed message] The code = UA Hyal Cast) system which generated this result transmit rohit reference range : <=2. The reference range was not used to interpr et this result as reji l/abnormal. [facility]UR[facility] AND [id number] 02:08:00 Test Item Value Reference Range Interpretation Comments UA Spec Grav (test code = UA Spec Grav) 1.009 [facility]UR[facility] AND [id number] 02:08:00 Test Item Value Reference Range Interpretation Comments UA Color (test code = Yellow *NA*(06/10/16 UA Color) 8:08 PM) [facility] AND [id number] 02:08:00 Test Item Value Reference Range Interpretation Comments UA Turbidity (test code = Clear (06/10/16 8:08 UA Turbidity) PM) [facility] [id number] 02:08:00 Test Item Value Reference Range Interpretation Comments U Preg (test code = U Negative (06/10/16 8:08 Preg) PM) [facility] [id number] 02:08:00 Test Item Value Reference Range Interpretation Comments U Protein (test code = U Protein) 375.4 [facility]URINE [id number] 02:08:00 Test Item Value Reference Range Interpretation Comments U Prot/Creat (test code = U Prot/Creat) 5.4 [facility] [id number] 02:08:00 Test Item Value Reference Range Interpretation Comments U Creatinine (test code = U Creatinine) 69.80 [facility]manannCARDIAC [id number] 16:53:00 Test Item Value Reference Range Interpretation Comments BNP (test code = BNP) 1135 [facility] [employer]emat[employer]annCARDIAC [id number] 16:53:00 Test Item Value Reference Range Interpretation Comments Troponin-I (test code no gt See_Comment [Auto mated message] The = Troponin-I) system which g enerated this result transmit rohit reference range : <=0.40. The reference r leo was not used to interpr et this result as reji l/abnormal. [facility]CARDIAC [id number] 16:53:00 Test Item Value Reference Range Interpretation Comments BNP (test code = BNP) 1135 [facility]annCARD[facility]AC [id number] 16:53:00 Test Item Value Reference Range Interpretation Comments Troponin-I (test code no gt See_Comment [Auto mated message] The = Troponin-I) system which g enerated this result transmit rohit reference range : <=0.40. The reference r leo was not used to interpr et this result as reji l/abnormal. [facility] [employer]ARS[employer] [id number] 16:53:00 Test Item Value Reference Range Interpretation Comments BNP (test code = BNP) 1135 [facility] [employer] [id number] 16:53:00 Test Item Value Reference Range Interpretation Comments Troponin-I (test code no gt See_Comment [Auto mated message] The = Troponin-I) system which g enerated this result transmit rohit reference range : <=0.40. The reference r leo was not used to interpr et this result as reji l/abnormal. [facility] [employer]ARS[employer] [id number] 16:53:00 Test Item Value Reference Range Interpretation Comments BNP (test code = BNP) 1135 [facility] [employer]CAR[employer] [id number] 16:53:00 Test Item Value Reference Range Interpretation Comments Troponin-I (test code no gt See_Comment [Auto mated message] The = Troponin-I) system which g enerated this result transmit rohit reference range : <=0.40. The reference r leo was not used to interpr et this result as reji l/abnormal. [facility] [employer]2016-12-21 16:53:00 Test Item Value Reference Range Interpretation Comments BNP (test code = BNP) 1135 [facility] [employer] [id number] 16:53:00 Test Item Value Reference Range Interpretation Comments Troponin-I (test code no gt See_Comment [Auto mated message] The = Troponin-I) system which g enerated this result transmit rohit reference range : <=0.40. The reference r leo was not used to interpr et this result as reji l/abnormal. [facility] [employer] [id number] 13:02:00 Test Item Value Reference Range Interpretation Comments Lactic Acid WB (test code = Lactic Acid 0.9 0.5-2.2 WB) [facility] [employer] [id number] 13:02:00 Test Item Value Reference Range Interpretation Comments Lactic Acid WB (test code = Lactic Acid 0.9 0.5-2.2 WB) [facility] [employer] [id number] 13:02:00 Test Item Value Reference Range Interpretation Comments Lactic Acid WB (test code = Lactic Acid 0.9 0.5-2.2 WB) [facility]2015-01-06 13:02:00 Test Item Value Reference Range Interpretation Comments Lactic Acid WB (test code = Lactic Acid 0.9 0.5-2.2 WB) [place] [id number] 13:02:00 Test Item Value Reference Range Interpretation Comments Lactic Acid WB (test code = Lactic Acid 0.9 0.5-2.2 WB) [place] [address]-01-06 12:29:44 Test Item Value Reference Range Interpretation Comments Valproic Acid Lvl (test code = Valproic 10 50-100 Acid Lvl) [place] [id number] 12:29:44 Test Item Value Reference Range Interpretation Comments Valproic Acid Lvl (test code = Valproic 10 50-100 Acid Lvl) [place] 414135-01-06 12:29:44 Test Item Value Reference Range Interpretation Comments Valproic Acid Lvl (test code = Valproic 10 50-100 Acid Lvl) [place] [id number] 12:29:44 Test Item Value Reference Range Interpretation Comments Valproic Acid Lvl (test code = Valproic 10 50-100 Acid Lvl) [place] [id number] 12:29:44 Test Item Value Reference Range Interpretation Comments Valproic Acid Lvl (test code = Valproic 10 50-100 Acid Lvl) [place] [id number] 11:21:27 Test Item Value Reference Range Interpretation Comments hCG Tot (test code = hCG Tot) 1 [place] [id number] 11:21:27 Test Item Value Reference Range Interpretation Comments hCG Tot (test code = hCG Tot) 1 [place] [id number] 11:21:27 Test Item Value Reference Range Interpretation Comments hCG Tot (test code = hCG Tot) 1 [place] [id number] 11:21:27 Test Item Value Reference Range Interpretation Comments hCG Tot (test code = hCG Tot) 1 [place] [id number] 11:21:27 Test Item Value Reference Range Interpretation Comments hCG Tot (test code = hCG Tot) 1 [facility]2015-01-06 11:21:00 Test Item Value Reference Range Interpretation Comments Albumin Lvl (test code = Albumin Lvl) 3.2 3.5-5.0 [place] [id number] 11:21:00 Test Item Value Reference Range Interpretation Comments Total Protein (test code = Total 6.6 6.4-8.4 Protein) [facility]2015-01-06 11:21:00 Test Item Value Reference Range Interpretation Comments Bili Total (test code = Bili Total) 0.6 0.2-1.3 [facility]2015-01-06 11:21:00 Test Item Value Reference Range Interpretation Comments Alk Phos (test code = Alk Phos) 59 39-136 [facility]2015-01-06 11:21:00 Test Item Value Reference Range Interpretation Comments AST (test code = AST) 11 See_Comment [Auto mated message] The system which ge nerated this result transmit rohit reference range : <=37. The reference range was not used to interpr et this result as reji l/abnormal. [facility]2015-01-06 11:21:00 Test Item Value Reference Range Interpretation Comments ALT (test code = ALT) 17 See_Comment [Auto mated message] The system which ge nerated this result transmit rohit reference range : <=65. The reference range was not used to interpr et this result as reji l/abnormal. [facility]2015-01-06 11:21:00 Test Item Value Reference Range Interpretation Comments eGFR (test code = eGFR) 99 [facility]2015-01-06 11:21:00 Test Item Value Reference Range Interpretation Comments Glucose Lvl (test code = Glucose Lvl) 314 70-99 [facility]2015-01-06 11:21:00 Test Item Value Reference Range Interpretation Comments Potassium Lvl (test code = Potassium 3.4 3.5-5.1 Lvl) [facility]2015-01-06 11:21:00 Test Item Value Reference Range Interpretation Comments BUN (test code = BUN) 11 7-22 [facility]2015-01-06 11:21:00 Test Item Value Reference Range Interpretation Comments Creatinine Lvl (test code = Creatinine 0.8 0.5-1.4 Lvl) [facility]2015-01-06 11:21:00 Test Item Value Reference Range Interpretation Comments Sodium Lvl (test code = Sodium Lvl) 134 135-145 [facility]2015-01-06 11:21:00 Test Item Value Reference Range Interpretation Comments Chloride Lvl (test code = Chloride Lvl) 94 95-109 [facility]2015-01-06 11:21:00 Test Item Value Reference Range Interpretation Comments Calcium Lvl (test code = Calcium Lvl) 9.1 8.5-10.5 [facility]2015-01-06 11:21:00 Test Item Value Reference Range Interpretation Comments CO2 (test code = CO2) 24 24-32 [facility]2015-01-06 11:21:00 Test Item Value Reference Range Interpretation Comments A/G Ratio (test code = A/G Ratio) 0.9 0.7-1.6 [facility]2015-01-06 11:21:00 Test Item Value Reference Range Interpretation Comments Globulin (test code = Globulin) 3.4 2.0-4.0 [facility]2015-01-06 11:21:00 Test Item Value Reference Range Interpretation Comments B/C Ratio (test code = B/C Ratio) 14 6-25 [facility]2015-01-06 11:21:00 Test Item Value Reference Range Interpretation Comments AGAP (test code = AGAP) 19.4 10.0-20.0 [facility]2015-01-06 11:21:00 Test Item Value Reference Range Interpretation Comments Lipase Lvl (test code = Lipase Lvl) 81 73-393 [facility]RilnkavQUGZWWFOUN0453-85-42 11:21:00 Test Item Value Reference Range Interpretation Comments Large Plt (test code = Large Plt) Slight [facility] CampusDmsirqgJQWGQKISCG6737-03-49 11:21:00 Test Item Value Reference Range Interpretation Comments Basophils # (test code 0.0 See_Comment [Aut omated message] The = Basophils #) system which generated this result tra nsmitted reference range : <=0.2. The reference r leo was not used to int erpret this result as normal/abnormal . [facility] CampusJbkotdeNZNTHGQYBV0649-48-67 11:21:00 Test Item Value Reference Range Interpretation Comments Anisocyte (test code = 1+ *ABN*(06/26/14 5:21 Anisocyte) AM) [facility] CampusOimhehvSKTUNINHEE3005-22-35 11:21:00 Test Item Value Reference Range Interpretation Comments Monocytes # (test code 0.6 See_Comment [Aut omated message] The = Monocytes #) system which generated this result tra nsmitted reference range : <=0.8. The reference r leo was not used to int erpret this result as normal/abnormal . [facility] CampusCpzieiqTMGRVSZJNP5079-52-07 11:21:00 Test Item Value Reference Range Interpretation Comments Eosinophils # (test code 0.1 See_Comment [A utomated message] The = Eosinophils #) system whic h generated this result tra nsmitted reference range : <=0.5. The reference r leo was not used to int erpret this result as normal/abnormal . [facility] CampusTioyverFXGXXAGUIN1192-60-21 11:21:00 Test Item Value Reference Range Interpretation Comments Lymphocytes # (test code = Lymphocytes 2.5 1.0-5.5 #) [facility] CampusLpesqwxTSZUZMUWLC9473-62-82 11:21:00 Test Item Value Reference Range Interpretation Comments Segs (test code = Segs) 63.3 45.0-75.0 [facility] CampusWhccyeuQFFHMEDCCY2222-72-56 11:21:00 Test Item Value Reference Range Interpretation Comments Segs-Bands # (test code = Segs-Bands #) 5.6 1.5-8.1 [facility] CampusLfafboyYKZJBJJBDC3619-28-20 11:21:00 Test Item Value Reference Range Interpretation Comments Basophils (test code = 0.0 See_Comment [Aut omated message] The Basophils) system which ge nerated this result tra nsmitted reference range : <=1.0. The reference r leo was not used to int erpret this result as normal/abnormal . [facility] CampusCwqgjodHEVXKKQQBR6954-51-02 11:21:00 Test Item Value Reference Range Interpretation Comments Eosinophils (test code = 0.9 See_Comment [A utomated message] The Eosinophils) system which ge nerated this result tra nsmitted reference range : <=4.0. The reference r leo was not used to int erpret this result as normal/abnormal . [facility] CampusXstroyoVQMFARAQMP6269-35-66 11:21:00 Test Item Value Reference Range Interpretation Comments Monocytes (test code = Monocytes) 7.0 2.0-12.0 [facility] CampusDqjqwodKRIHXKLPOT6095-15-35 11:21:00 Test Item Value Reference Range Interpretation Comments Lymphocytes (test code = Lymphocytes) 28.8 20.0-40.0 [facility] CampusIfsjremCLOHPDWZVT7661-98-85 11:21:00 Test Item Value Reference Range Interpretation Comments WBC (test code = WBC) 8.8 3.7-10.4 [facility] CampusJotqpwlISGORIQDZY2064-30-80 11:21:00 Test Item Value Reference Range Interpretation Comments RBC (test code = RBC) 5.19 4.20-5.40 [facility] CampusXwfdqnkQAUZIQISHX2984-40-82 11:21:00 Test Item Value Reference Range Interpretation Comments Hgb (test code = Hgb) 14.4 12.0-16.0 [facility] CampusZhcloiaPWUYMHTJCM0449-54-28 11:21:00 Test Item Value Reference Range Interpretation Comments Hct (test code = Hct) 43.1 36.0-48.0 [facility] CampusHdfjxzwZVTVIIMYVE0339-79-83 11:21:00 Test Item Value Reference Range Interpretation Comments MCV (test code = MCV) 83.1 80.0-98.0 [facility] CampusOwjzazpLGAONCKPXL5214-74-30 11:21:00 Test Item Value Reference Range Interpretation Comments MCH (test code = MCH) 27.8 pg 27.0-31.0 [facility] CampusWjytmttMQLMNDQXDF1235-23-38 11:21:00 Test Item Value Reference Range Interpretation Comments RDW (test code = RDW) 13.1 11.5-14.5 [facility] CampusQpcqmavCKLJVJWEGT5829-71-33 11:21:00 Test Item Value Reference Range Interpretation Comments MCHC (test code = MCHC) 33.5 32.0-36.0 [facility] CampusQczpqxhMWBMSZCYPO3568-94-77 11:21:00 Test Item Value Reference Range Interpretation Comments Platelet (test code = Platelet) 201 133-450 [facility] CampusPrztuypNYWYIQAEUR6024-50-64 11:21:00 Test Item Value Reference Range Interpretation Comments MPV (test code = MPV) 10.4 7.4-10.4 [facility]2015-01-06 11:21:00 Test Item Value Reference Range Interpretation Comments Albumin Lvl (test code = Albumin Lvl) 3.2 3.5-5.0 [facility]2015-01-06 11:21:00 Test Item Value Reference Range Interpretation Comments Total Protein (test code = Total 6.6 6.4-8.4 Protein) [facility]2015-01-06 11:21:00 Test Item Value Reference Range Interpretation Comments Bili Total (test code = Bili Total) 0.6 0.2-1.3 [facility]2015-01-06 11:21:00 Test Item Value Reference Range Interpretation Comments Alk Phos (test code = Alk Phos) 59 39-136 [facility]2015-01-06 11:21:00 Test Item Value Reference Range Interpretation Comments AST (test code = AST) 11 See_Comment [Auto mated message] The system which ge nerated this result transmit rohit reference range : <=37. The reference range was not used to interpr et this result as reji l/abnormal. [facility]2015-01-06 11:21:00 Test Item Value Reference Range Interpretation Comments ALT (test code = ALT) 17 See_Comment [Auto mated message] The system which ge nerated this result transmit rohit reference range : <=65. The reference range was not used to interpr et this result as reji l/abnormal. [facility]2015-01-06 11:21:00 Test Item Value Reference Range Interpretation Comments eGFR (test code = eGFR) 99 [facility]2015-01-06 11:21:00 Test Item Value Reference Range Interpretation Comments Glucose Lvl (test code = Glucose Lvl) 314 70-99 [facility]2015-01-06 11:21:00 Test Item Value Reference Range Interpretation Comments Potassium Lvl (test code = Potassium 3.4 3.5-5.1 Lvl) [facility]2015-01-06 11:21:00 Test Item Value Reference Range Interpretation Comments BUN (test code = BUN) 11 7-22 [facility]2015-01-06 11:21:00 Test Item Value Reference Range Interpretation Comments Creatinine Lvl (test code = Creatinine 0.8 0.5-1.4 Lvl) [facility]2015-01-06 11:21:00 Test Item Value Reference Range Interpretation Comments Sodium Lvl (test code = Sodium Lvl) 134 135-145 [facility]2015-01-06 11:21:00 Test Item Value Reference Range Interpretation Comments Chloride Lvl (test code = Chloride Lvl) 94 95-109 [facility]2015-01-06 11:21:00 Test Item Value Reference Range Interpretation Comments Calcium Lvl (test code = Calcium Lvl) 9.1 8.5-10.5 [facility]2015-01-06 11:21:00 Test Item Value Reference Range Interpretation Comments CO2 (test code = CO2) 24 24-32 [facility]2015-01-06 11:21:00 Test Item Value Reference Range Interpretation Comments A/G Ratio (test code = A/G Ratio) 0.9 0.7-1.6 [facility]2015-01-06 11:21:00 Test Item Value Reference Range Interpretation Comments Globulin (test code = Globulin) 3.4 2.0-4.0 [facility]2015-01-06 11:21:00 Test Item Value Reference Range Interpretation Comments B/C Ratio (test code = B/C Ratio) 14 6-25 [facility]2015-01-06 11:21:00 Test Item Value Reference Range Interpretation Comments AGAP (test code = AGAP) 19.4 10.0-20.0 [facility]2015-01-06 11:21:00 Test Item Value Reference Range Interpretation Comments Lipase Lvl (test code = Lipase Lvl) 81 73-393 [facility] CampusGadnsvfPTUKHWYFHJ1599-74-38 11:21:00 Test Item Value Reference Range Interpretation Comments Large Plt (test code = Large Plt) Slight [facility] CampusNcpnbdrFPDUNFQIME5358-42-00 11:21:00 Test Item Value Reference Range Interpretation Comments Basophils # (test code 0.0 See_Comment [Aut omated message] The = Basophils #) system which generated this result tra nsmitted reference range : <=0.2. The reference r leo was not used to int erpret this result as normal/abnormal . [facility] CampusKwfreaxRRHJIKIAPR0757-70-38 11:21:00 Test Item Value Reference Range Interpretation Comments Anisocyte (test code = 1+ *ABN*(06/26/14 5:21 Anisocyte) AM) [facility] CampusIvidpbvFUKWPDAOJB7208-72-94 11:21:00 Test Item Value Reference Range Interpretation Comments Monocytes # (test code 0.6 See_Comment [Aut omated message] The = Monocytes #) system which generated this result tra nsmitted reference range : <=0.8. The reference r leo was not used to int erpret this result as normal/abnormal . [facility] CampusMswyzrcHIMLLLNBDC2830-43-81 11:21:00 Test Item Value Reference Range Interpretation Comments Eosinophils # (test code 0.1 See_Comment [A utomated message] The = Eosinophils #) system whic h generated this result tra nsmitted reference range : <=0.5. The reference r leo was not used to int erpret this result as normal/abnormal . [facility] CampusBnqkgxbATYIAEXVUD1592-13-58 11:21:00 Test Item Value Reference Range Interpretation Comments Lymphocytes # (test code = Lymphocytes 2.5 1.0-5.5 #) [facility] CampusRqjotibLJSKNODCHD9976-17-21 11:21:00 Test Item Value Reference Range Interpretation Comments Segs (test code = Segs) 63.3 45.0-75.0 [facility] CampusDtgjcsiQSMJNHQXZU9558-98-38 11:21:00 Test Item Value Reference Range Interpretation Comments Segs-Bands # (test code = Segs-Bands #) 5.6 1.5-8.1 [facility] CampusWwnrkwvABZTCIJFHQ4097-31-00 11:21:00 Test Item Value Reference Range Interpretation Comments Basophils (test code = 0.0 See_Comment [Aut omated message] The Basophils) system which ge nerated this result tra nsmitted reference range : <=1.0. The reference r leo was not used to int erpret this result as normal/abnormal . [facility] CampusWyyprchILCJTOSSEE8423-74-97 11:21:00 Test Item Value Reference Range Interpretation Comments Eosinophils (test code = 0.9 See_Comment [A utomated message] The Eosinophils) system which ge nerated this result tra nsmitted reference range : <=4.0. The reference r leo was not used to int erpret this result as normal/abnormal . [facility] CampusVhmduleYJWJJPDWDC2571-29-47 11:21:00 Test Item Value Reference Range Interpretation Comments Monocytes (test code = Monocytes) 7.0 2.0-12.[address] [facility] HospitalOtviqwsQEYZGZMUEV8181-58-70 11:21:00 Test Item Value Reference Range Interpretation Comments Lymphocytes (test code = Lymphocytes) 28.8 20.0-40.0 [facility] HospitalGygwlabHUEONHOWBV0291-22-34 11:21:00 Test Item Value Reference Range Interpretation Comments WBC (test code = WBC) 8.8 3.7-10.4 [facility] HospitalUcxphmwRCBXKWJFAZ9088-81-11 11:21:00 Test Item Value Reference Range Interpretation Comments RBC (test code = RBC) 5.19 4.20-5.40 [facility] HospitalNkvhdrqYEWIIFVQXZ3810-51-66 11:21:00 Test Item Value Reference Range Interpretation Comments Hgb (test code = Hgb) 14.4 12.0-16.0 [facility] CampusFruijyqJLVYUALQYF0657-78-75 11:21:00 Test Item Value Reference Range Interpretation Comments Hct (test code = Hct) 43.1 36.0-48.0 [facility] HospitalQjpkgqpADWQBRDBXS5919-02-85 11:21:00 Test Item Value Reference Range Interpretation Comments MCV (test code = MCV) 83.1 80.0-98.0 [facility] HospitalLzinzwbMDYWUWBKKZ8537-50-06 11:21:00 Test Item Value Reference Range Interpretation Comments MCH (test code = MCH) 27.8 pg 27.0-31.0 [facility] CampusTquzxooYAFJLXJSZE7727-72-73 11:21:00 Test Item Value Reference Range Interpretation Comments RDW (test code = RDW) 13.1 11.5-14.5 [facility] HospitalTprmjxmJBCDOCLBLN6058-69-23 11:21:00 Test Item Value Reference Range Interpretation Comments MCHC (test code = MCHC) 33.5 32.0-36.0 [facility] HospitalXqoobqvHMPWTJVHZI1570-27-27 11:21:00 Test Item Value Reference Range Interpretation Comments Platelet (test code = Platelet) 201 133-[address] [facility] [facility] HospitalAmhsfwiBTPKLZZYKZ2891-62-61 11:21:00 Test Item Value Reference Range Interpretation Comments MPV (test code = MPV) 10.4 7.4-10.4 [facility]2015-01-06 11:21:00 Test Item Value Reference Range Interpretation Comments Albumin Lvl (test code = Albumin Lvl) 3.2 3.5-5.0 [facility]2015-01-06 11:21:00 Test Item Value Reference Range Interpretation Comments Total Protein (test code = Total 6.6 6.4-8.4 Protein) [facility]2015-01-06 11:21:00 Test Item Value Reference Range Interpretation Comments Bili Total (test code = Bili Total) 0.6 0.2-1.3 [facility]2015-01-06 11:21:00 Test Item Value Reference Range Interpretation Comments Alk Phos (test code = Alk Phos) 59 39-136 [facility]2015-01-06 11:21:00 Test Item Value Reference Range Interpretation Comments AST (test code = AST) 11 See_Comment [Auto mated message] The system which ge nerated this result transmit rohit reference range : <=37. The reference range was not used to interpr et this result as reij l/abnormal. [facility]2015-01-06 11:21:00 Test Item Value Reference Range Interpretation Comments ALT (test code = ALT) 17 See_Comment [Auto mated message] The system which ge nerated this result transmit rohit reference range : <=65. The reference range was not used to interpr et this result as reji l/abnormal. [facility]2015-01-06 11:21:00 Test Item Value Reference Range Interpretation Comments eGFR (test code = eGFR) 99 [facility]2015-01-06 11:21:00 Test Item Value Reference Range Interpretation Comments Glucose Lvl (test code = Glucose Lvl) 314 70-99 [facility]2015-01-06 11:21:00 Test Item Value Reference Range Interpretation Comments Potassium Lvl (test code = Potassium 3.4 3.5-5.1 Lvl) [facility]2015-01-06 11:21:00 Test Item Value Reference Range Interpretation Comments BUN (test code = BUN) 11 7-22 [facility]2015-01-06 11:21:00 Test Item Value Reference Range Interpretation Comments Creatinine Lvl (test code = Creatinine 0.8 0.5-1.4 Lvl) [facility]2015-01-06 11:21:00 Test Item Value Reference Range Interpretation Comments Sodium Lvl (test code = Sodium Lvl) 134 135-145 [facility]2015-01-06 11:21:00 Test Item Value Reference Range Interpretation Comments Chloride Lvl (test code = Chloride Lvl) 94 95-109 [facility]2015-01-06 11:21:00 Test Item Value Reference Range Interpretation Comments Calcium Lvl (test code = Calcium Lvl) 9.1 8.5-10.5 [facility]2015-01-06 11:21:00 Test Item Value Reference Range Interpretation Comments CO2 (test code = CO2) 24 24-32 [facility]2015-01-06 11:21:00 Test Item Value Reference Range Interpretation Comments A/G Ratio (test code = A/G Ratio) 0.9 0.7-1.6 [facility]2015-01-06 11:21:00 Test Item Value Reference Range Interpretation Comments Globulin (test code = Globulin) 3.4 2.0-4.0 [facility]2015-01-06 11:21:00 Test Item Value Reference Range Interpretation Comments B/C Ratio (test code = B/C Ratio) 14 6-25 [facility]2015-01-06 11:21:00 Test Item Value Reference Range Interpretation Comments AGAP (test code = AGAP) 19.4 10.0-20.0 [facility]2015-01-06 11:21:00 Test Item Value Reference Range Interpretation Comments Lipase Lvl (test code = Lipase Lvl) 81 73-393 [facility] CampusXugibnsNTNAZTBTSP0116-98-35 11:21:00 Test Item Value Reference Range Interpretation Comments Large Plt (test code = Large Plt) Slight [facility] CampusTmgpbmnRTSWLYBGAR4364-31-97 11:21:00 Test Item Value Reference Range Interpretation Comments Basophils # (test code 0.0 See_Comment [Aut omated message] The = Basophils #) system which generated this result tra nsmitted reference range : <=0.2. The reference r leo was not used to int erpret this result as normal/abnormal . [facility] CampusZzyzdqxKXEKKCJSVG8337-20-41 11:21:00 Test Item Value Reference Range Interpretation Comments Anisocyte (test code = 1+ *ABN*(1/6/15 5:21 Anisocyte) AM) [facility] CampusBvjtmgrGNOFECVUMY3601-00-36 11:21:00 Test Item Value Reference Range Interpretation Comments Monocytes # (test code 0.6 See_Comment [Aut omated message] The = Monocytes #) system which generated this result tra nsmitted reference range : <=0.8. The reference r leo was not used to int erpret this result as normal/abnormal . [facility]RrxldmfMARBJDMPWS1841-75-13 11:21:00 Test Item Value Reference Range Interpretation Comments Eosinophils # (test code 0.1 See_Comment [A utomated message] The = Eosinophils #) system whic h generated this result tra nsmitted reference range : <=0.5. The reference r leo was not used to int erpret this result as normal/abnormal . [facility] CampusDcknklqTGGXDUIKHV2732-99-98 11:21:00 Test Item Value Reference Range Interpretation Comments Lymphocytes # (test code = Lymphocytes 2.5 1.0-5.5 #) [facility] CampusTgoaggrKMGENDUUCV4507-26-23 11:21:00 Test Item Value Reference Range Interpretation Comments Segs (test code = Segs) 63.3 45.0-75.0 [facility] CampusXftkxxtIBZDDLRARC8015-73-06 11:21:00 Test Item Value Reference Range Interpretation Comments Segs-Bands # (test code = Segs-Bands #) 5.6 1.5-8.1 [facility] CampusGinijbzTNQKAPKJHI3893-35-89 11:21:00 Test Item Value Reference Range Interpretation Comments Basophils (test code = 0.0 See_Comment [Aut omated message] The Basophils) system which ge nerated this result tra nsmitted reference range : <=1.0. The reference r leo was not used to int erpret this result as normal/abnormal . [facility] CampusKhmxbbqLBNTQPRBSE5795-49-64 11:21:00 Test Item Value Reference Range Interpretation Comments Eosinophils (test code = 0.9 See_Comment [A utomated message] The Eosinophils) system which ge nerated this result tra nsmitted reference range : <=4.0. The reference r leo was not used to int erpret this result as normal/abnormal . [facility] CampusZudmatrEQNDMYFOGY2197-97-09 11:21:00 Test Item Value Reference Range Interpretation Comments Monocytes (test code = Monocytes) 7.0 2.0-12.0 [facility] CampusRomiptcNECPBKGFWY3671-35-90 11:21:00 Test Item Value Reference Range Interpretation Comments Lymphocytes (test code = Lymphocytes) 28.8 20.0-40.0 [facility] CampusZajlswsYLYOAYBELZ2397-40-11 11:21:00 Test Item Value Reference Range Interpretation Comments WBC (test code = WBC) 8.8 3.7-10.4 [facility] CampusTynhvcmELESHBCILY4157-39-22 11:21:00 Test Item Value Reference Range Interpretation Comments RBC (test code = RBC) 5.19 4.20-5.40 [facility] CampusXxsxhrlKBBVDXBZNC8986-60-61 11:21:00 Test Item Value Reference Range Interpretation Comments Hgb (test code = Hgb) 14.4 12.0-16.0 [facility] CampusKmkrdkoQQNRISVZEJ0315-68-48 11:21:00 Test Item Value Reference Range Interpretation Comments Hct (test code = Hct) 43.1 36.0-48.0 [facility] CampusEbmixjeQNJSFISMQL6585-99-89 11:21:00 Test Item Value Reference Range Interpretation Comments MCV (test code = MCV) 83.1 80.0-98.0 [facility] CampusHylubhaOXLYNSPJDI2973-16-74 11:21:00 Test Item Value Reference Range Interpretation Comments MCH (test code = MCH) 27.8 pg 27.0-31.0 [facility] CampusDpxbkkyXCYVIBXYXE4197-08-91 11:21:00 Test Item Value Reference Range Interpretation Comments RDW (test code = RDW) 13.1 11.5-14.5 [facility] CampusCvuahogAWHUYOEJVD3483-99-98 11:21:00 Test Item Value Reference Range Interpretation Comments MCHC (test code = MCHC) 33.5 32.0-36.0 [facility] CampusNlsoncoNBDQBFCXMK1881-06-90 11:21:00 Test Item Value Reference Range Interpretation Comments Platelet (test code = Platelet) 201 133-450 [facility] CampusEujfffeCJMFTOHEMV6636-32-88 11:21:00 Test Item Value Reference Range Interpretation Comments MPV (test code = MPV) 10.4 7.4-10.4 [facility]2015-01-06 11:21:00 Test Item Value Reference Range Interpretation Comments Albumin Lvl (test code = Albumin Lvl) 3.2 3.5-5.0 [facility]2015-01-06 11:21:00 Test Item Value Reference Range Interpretation Comments Total Protein (test code = Total 6.6 6.4-8.4 Protein) [facility]2015-01-06 11:21:00 Test Item Value Reference Range Interpretation Comments Bili Total (test code = Bili Total) 0.6 0.2-1.3 [facility]2015-01-06 11:21:00 Test Item Value Reference Range Interpretation Comments Alk Phos (test code = Alk Phos) 59 39-136 [facility]2015-01-06 11:21:00 Test Item Value Reference Range Interpretation Comments AST (test code = AST) 11 See_Comment [Auto mated message] The system which ge nerated this result transmit rohit reference range : <=37. The reference range was not used to interpr et this result as reji l/abnormal. [facility]2015-01-06 11:21:00 Test Item Value Reference Range Interpretation Comments ALT (test code = ALT) 17 See_Comment [Auto mated message] The system which ge nerated this result transmit rohit reference range : <=65. The reference range was not used to interpr et this result as reji l/abnormal. [facility]2015-01-06 11:21:00 Test Item Value Reference Range Interpretation Comments eGFR (test code = eGFR) 99 [facility]2015-01-06 11:21:00 Test Item Value Reference Range Interpretation Comments Glucose Lvl (test code = Glucose Lvl) 314 70-99 [facility]2015-01-06 11:21:00 Test Item Value Reference Range Interpretation Comments Potassium Lvl (test code = Potassium 3.4 3.5-5.1 Lvl) [facility]2015-01-06 11:21:00 Test Item Value Reference Range Interpretation Comments BUN (test code = BUN) 11 7-22 [facility]2015-01-06 11:21:00 Test Item Value Reference Range Interpretation Comments Creatinine Lvl (test code = Creatinine 0.8 0.5-1.4 Lvl) [facility]2015-01-06 11:21:00 Test Item Value Reference Range Interpretation Comments Sodium Lvl (test code = Sodium Lvl) 134 135-145 [facility]2015-01-06 11:21:00 Test Item Value Reference Range Interpretation Comments Chloride Lvl (test code = Chloride Lvl) 94 95-109 [facility]2015-01-06 11:21:00 Test Item Value Reference Range Interpretation Comments Calcium Lvl (test code = Calcium Lvl) 9.1 8.5-10.5 [facility]2015-01-06 11:21:00 Test Item Value Reference Range Interpretation Comments CO2 (test code = CO2) 24 24-32 [facility]2015-01-06 11:21:00 Test Item Value Reference Range Interpretation Comments A/G Ratio (test code = A/G Ratio) 0.9 0.7-1.6 [facility]2015-01-06 11:21:00 Test Item Value Reference Range Interpretation Comments Globulin (test code = Globulin) 3.4 2.0-4.0 [facility]2015-01-06 11:21:00 Test Item Value Reference Range Interpretation Comments B/C Ratio (test code = B/C Ratio) 14 6-25 [facility]2015-01-06 11:21:00 Test Item Value Reference Range Interpretation Comments AGAP (test code = AGAP) 19.4 10.0-20.0 [facility]2015-01-06 11:21:00 Test Item Value Reference Range Interpretation Comments Lipase Lvl (test code = Lipase Lvl) 81 73-393 [facility] CampusWdzjriiWGAXEKMWXI6334-01-77 11:21:00 Test Item Value Reference Range Interpretation Comments Large Plt (test code = Large Plt) Slight [facility] CampusPhhswglAOSSLXXKUT4920-69-58 11:21:00 Test Item Value Reference Range Interpretation Comments Basophils # (test code 0.0 See_Comment [Aut omated message] The = Basophils #) system which generated this result tra nsmitted reference range : <=0.2. The reference r leo was not used to int erpret this result as normal/abnormal . [facility] CampusXntmkauFZXAUJAFTW0697-35-93 11:21:00 Test Item Value Reference Range Interpretation Comments Anisocyte (test code = 1+ *ABN*(06/26/14 5:21 Anisocyte) AM) [facility] CampusQtbofnhEERSCWEFCI0001-61-61 11:21:00 Test Item Value Reference Range Interpretation Comments Monocytes # (test code 0.6 See_Comment [Aut omated message] The = Monocytes #) system which generated this result tra nsmitted reference range : <=0.8. The reference r leo was not used to int erpret this result as normal/abnormal . [facility] CampusEihssqxAVGNDLGLMS5682-38-97 11:21:00 Test Item Value Reference Range Interpretation Comments Eosinophils # (test code 0.1 See_Comment [A utomated message] The = Eosinophils #) system whic h generated this result tra nsmitted reference range : <=0.5. The reference r leo was not used to int erpret this result as normal/abnormal . [facility] CampusUkraemwZIWPRHNGMU0015-54-78 11:21:00 Test Item Value Reference Range Interpretation Comments Lymphocytes # (test code = Lymphocytes 2.5 1.0-5.5 #) [facility] CampusZpqmbmkSHQPKRLHFC1980-50-80 11:21:00 Test Item Value Reference Range Interpretation Comments Segs (test code = Segs) 63.3 45.0-75.0 [facility] CampusJjkqmpcPBADNXELDK1032-96-34 11:21:00 Test Item Value Reference Range Interpretation Comments Segs-Bands # (test code = Segs-Bands #) 5.6 1.5-8.1 [facility] CampusYydwuqsFQJSGLMADU7313-69-29 11:21:00 Test Item Value Reference Range Interpretation Comments Basophils (test code = 0.0 See_Comment [Aut omated message] The Basophils) system which ge nerated this result tra nsmitted reference range : <=1.0. The reference r leo was not used to int erpret this result as normal/abnormal . [facility] CampusMgwfbbiOPWLFLPYQT5876-25-66 11:21:00 Test Item Value Reference Range Interpretation Comments Eosinophils (test code = 0.9 See_Comment [A utomated message] The Eosinophils) system which ge nerated this result tra nsmitted reference range : <=4.0. The reference r leo was not used to int erpret this result as normal/abnormal . [facility] CampusOfaodtfPCRAZBXTVR4395-22-25 11:21:00 Test Item Value Reference Range Interpretation Comments Monocytes (test code = Monocytes) 7.0 2.0-12.0 [facility] CampusKrjmfxsQPTZBSRQUV0169-68-78 11:21:00 Test Item Value Reference Range Interpretation Comments Lymphocytes (test code = Lymphocytes) 28.8 20.0-40.0 [facility] CampusXyaarufRTHUOQFRBG8509-47-48 11:21:00 Test Item Value Reference Range Interpretation Comments WBC (test code = WBC) 8.8 3.7-10.4 [facility] CampusKymbzjxAEYEFJODAK1563-47-00 11:21:00 Test Item Value Reference Range Interpretation Comments RBC (test code = RBC) 5.19 4.20-5.40 [facility] CampusLzcrlyfXDRPVAFOKZ0520-49-18 11:21:00 Test Item Value Reference Range Interpretation Comments Hgb (test code = Hgb) 14.4 12.0-16.0 [facility] CampusUcuhjflPLUZCEXTSP1159-67-47 11:21:00 Test Item Value Reference Range Interpretation Comments Hct (test code = Hct) 43.1 36.0-48.0 [facility] CampusKlrymwpTMOMDYPLRB5267-42-70 11:21:00 Test Item Value Reference Range Interpretation Comments MCV (test code = MCV) 83.1 80.0-98.0 [facility] CampusBzezfmqZSHOTICPNT0386-55-75 11:21:00 Test Item Value Reference Range Interpretation Comments MCH (test code = MCH) 27.8 pg 27.0-31.0 [facility] CampusAkcpuykJFDFGRWQAX9366-39-68 11:21:00 Test Item Value Reference Range Interpretation Comments RDW (test code = RDW) 13.1 11.5-14.5 [facility] CampusKiqswjnXOFYBDIUGO1281-30-62 11:21:00 Test Item Value Reference Range Interpretation Comments MCHC (test code = MCHC) 33.5 32.0-36.0 [facility] CampusPrhldwiXHPZVPLQTC6629-97-53 11:21:00 Test Item Value Reference Range Interpretation Comments Platelet (test code = Platelet) 201 133-450 [facility] CampusXjvmstgGBRIQAWUBP7796-91-91 11:21:00 Test Item Value Reference Range Interpretation Comments MPV (test code = MPV) 10.4 7.4-10.4 [facility] FQSXC5462-49-40 11:21:00 Test Item Value Reference Range Interpretation Comments Albumin Lvl (test code = Albumin Lvl) 3.2 3.5-5.0 [facility] NQRSC6954-05-31 11:21:00 Test Item Value Reference Range Interpretation Comments Total Protein (test code = Total 6.6 6.4-8.4 Protein) [facility]2015-01-06 11:21:00 Test Item Value Reference Range Interpretation Comments Bili Total (test code = Bili Total) 0.6 0.2-1.3 [facility]2015-01-06 11:21:00 Test Item Value Reference Range Interpretation Comments Alk Phos (test code = Alk Phos) 59 39-136 [facility]2015-01-06 11:21:00 Test Item Value Reference Range Interpretation Comments AST (test code = AST) 11 See_Comment [Auto mated message] The system which ge nerated this result transmit rohit reference range : <=37. The reference range was not used to interpr et this result as reji l/abnormal. [facility]2015-01-06 11:21:00 Test Item Value Reference Range Interpretation Comments ALT (test code = ALT) 17 See_Comment [Auto mated message] The system which ge nerated this result transmit rohit reference range : <=65. The reference range was not used to interpr et this result as reji l/abnormal. [facility]2015-01-06 11:21:00 Test Item Value Reference Range Interpretation Comments eGFR (test code = eGFR) 99 [facility]2015-01-06 11:21:00 Test Item Value Reference Range Interpretation Comments Glucose Lvl (test code = Glucose Lvl) 314 70-99 [facility]2015-01-06 11:21:00 Test Item Value Reference Range Interpretation Comments Potassium Lvl (test code = Potassium 3.4 3.5-5.1 Lvl) [facility]2015-01-06 11:21:00 Test Item Value Reference Range Interpretation Comments BUN (test code = BUN) 11 7-22 [facility]2015-01-06 11:21:00 Test Item Value Reference Range Interpretation Comments Creatinine Lvl (test code = Creatinine 0.8 0.5-1.4 Lvl) [facility]2015-01-06 11:21:00 Test Item Value Reference Range Interpretation Comments Sodium Lvl (test code = Sodium Lvl) 134 135-145 [place] 440045-01-06 11:21:00 Test Item Value Reference Range Interpretation Comments Chloride Lvl (test code = Chloride Lvl) 94 95-109 [facility]2015-01-06 11:21:00 Test Item Value Reference Range Interpretation Comments Calcium Lvl (test code = Calcium Lvl) 9.1 8.5-10.5 [facility]2015-01-06 11:21:00 Test Item Value Reference Range Interpretation Comments CO2 (test code = CO2) 24 24-32 [facility]2015-01-06 11:21:00 Test Item Value Reference Range Interpretation Comments A/G Ratio (test code = A/G Ratio) 0.9 0.7-1.6 [facility]2015-01-06 11:21:00 Test Item Value Reference Range Interpretation Comments Globulin (test code = Globulin) 3.4 2.0-4.0 [facility]2015-01-06 11:21:00 Test Item Value Reference Range Interpretation Comments B/C Ratio (test code = B/C Ratio) 14 6-25 [facility]2015-01-06 11:21:00 Test Item Value Reference Range Interpretation Comments AGAP (test code = AGAP) 19.4 10.0-20.0 [facility]2015-01-06 11:21:00 Test Item Value Reference Range Interpretation Comments Lipase Lvl (test code = Lipase Lvl) 81 73-393 [facility] CampusDruyxocVNKOWPKHDH4328-18-05 11:21:00 Test Item Value Reference Range Interpretation Comments Large Plt (test code = Large Plt) Slight [facility] CampusRykeyotQOGLUBRKGM0093-31-51 11:21:00 Test Item Value Reference Range Interpretation Comments Basophils # (test code 0.0 See_Comment [Aut omated message] The = Basophils #) system which generated this result tra nsmitted reference range : <=0.2. The reference r leo was not used to int erpret this result as normal/abnormal . [facility] CampusMridetcCKAKHUZFOG7125-42-49 11:21:00 Test Item Value Reference Range Interpretation Comments Anisocyte (test code = 1+ *ABN*(06/26/14 5:21 Anisocyte) AM) [facility] CampusUnafpttXUMQSPCNIQ3035-08-63 11:21:00 Test Item Value Reference Range Interpretation Comments Monocytes # (test code 0.6 See_Comment [Aut omated message] The = Monocytes #) system which generated this result tra nsmitted reference range : <=0.8. The reference r leo was not used to int erpret this result as normal/abnormal . [facility] CampusCrnmkroIOIWQCPJFW2172-19-33 11:21:00 Test Item Value Reference Range Interpretation Comments Eosinophils # (test code 0.1 See_Comment [A utomated message] The = Eosinophils #) system whic h generated this result tra nsmitted reference range : <=0.5. The reference r leo was not used to int erpret this result as normal/abnormal . [facility] CampusEnhhlthTNAQRQHPSB9472-41-12 11:21:00 Test Item Value Reference Range Interpretation Comments Lymphocytes # (test code = Lymphocytes 2.5 1.0-5.5 #) [facility] CampusOoshusjJGKBYBMKKK2540-38-05 11:21:00 Test Item Value Reference Range Interpretation Comments Segs (test code = Segs) 63.3 45.0-75.0 [facility] CampusZmjosdqTZPSBJUBDK3304-62-48 11:21:00 Test Item Value Reference Range Interpretation Comments Segs-Bands # (test code = Segs-Bands #) 5.6 1.5-8.1 [facility] CampusYrdvcukLMKGHBNZXG9583-30-50 11:21:00 Test Item Value Reference Range Interpretation Comments Basophils (test code = 0.0 See_Comment [Aut omated message] The Basophils) system which ge nerated this result tra nsmitted reference range : <=1.0. The reference r leo was not used to int erpret this result as normal/abnormal . [facility] CampusFhxzodbUFJZLZVSFI5625-66-14 11:21:00 Test Item Value Reference Range Interpretation Comments Eosinophils (test code = 0.9 See_Comment [A utomated message] The Eosinophils) system which ge nerated this result tra nsmitted reference range : <=4.0. The reference r leo was not used to int erpret this result as normal/abnormal . [facility] CampusXltdxexQTLRBHJGIL5776-41-43 11:21:00 Test Item Value Reference Range Interpretation Comments Monocytes (test code = Monocytes) 7.0 2.0-12.0 [facility] CampusEzlowaqVCGFSCKCDB4785-05-56 11:21:00 Test Item Value Reference Range Interpretation Comments Lymphocytes (test code = Lymphocytes) 28.8 20.0-40.0 [facility] CampusRltdflxYYGUTQQLVH7545-07-71 11:21:00 Test Item Value Reference Range Interpretation Comments WBC (test code = WBC) 8.8 3.7-10.4 [facility] CampusNbvgtpcDIJEIVCIOM7291-29-84 11:21:00 Test Item Value Reference Range Interpretation Comments RBC (test code = RBC) 5.19 4.20-5.40 [facility] CampusSqkedtsFXLBZXKIZJ1400-67-59 11:21:00 Test Item Value Reference Range Interpretation Comments Hgb (test code = Hgb) 14.4 12.0-16.0 [facility] CampusLxkfqnbDNBKPTFBHS5588-58-97 11:21:00 Test Item Value Reference Range Interpretation Comments Hct (test code = Hct) 43.1 36.0-48.0 [facility] CampusPybditlSETAFPVCUW9122-75-99 11:21:00 Test Item Value Reference Range Interpretation Comments MCV (test code = MCV) 83.1 80.0-98.0 [facility] CampusRuxkeueETBHAQGTSH3660-30-37 11:21:00 Test Item Value Reference Range Interpretation Comments MCH (test code = MCH) 27.8 pg 27.0-31.0 [facility] CampusBwnskdeANHCNBBIUO7488-96-49 11:21:00 Test Item Value Reference Range Interpretation Comments RDW (test code = RDW) 13.1 11.5-14.5 [facility] CampusGdfwelfYDHZQJHEKB2645-40-24 11:21:00 Test Item Value Reference Range Interpretation Comments MCHC (test code = MCHC) 33.5 32.0-36.0 [facility] CampusKtdpesvMDQZJINXVE6756-27-66 11:21:00 Test Item Value Reference Range Interpretation Comments Platelet (test code = Platelet) 201 133-450 [facility] CampusYtdwzjtSPQLNOPWWG3678-24-50 11:21:00 Test Item Value Reference Range Interpretation Comments MPV (test code = MPV) 10.4 7.4-10.4 [facility]BevnuxxUCJPGBJKHP6905-40-18 04:48:55 Test Item Value Reference Range Interpretation Comments UA Unity Yeast (test code = UA Occasional /HPF A Unity Yeast) [facility] StationSkdrmqmDLJDOIRLAQ4874-03-54 04:48:55 Test Item Value Reference Range Interpretation Comments UA Mucus (test code = UA Mucus) Few /LPF N [facility] StationHgsuwkiNJDDTIYOBO0295-88-54 04:48:55 Test Item Value Reference Range Interpretation Comments UA Sq Epi (test code = UA Sq Moderate /LPF A Epi) [facility] StationJagvnznQXFUFUZMZT9629-70-90 04:48:55 Test Item Value Reference Range Interpretation Comments Micro? (test code = Performed (04/14/2013 N Micro?) 23:48:55) [facility] StationWghgcwaSIIWPGNQMV7622-17-39 04:48:55 Test Item Value Reference Range Interpretation Comments UA WBC (test code = UA WBC) 0-2 /HPF N [facility] StationYfgnxloACDODCYPFY7810-14-81 04:48:55 Test Item Value Reference Range Interpretation Comments UA Bacteria (test code = UA Occasional /HPF N Bacteria) [facility] StationGcrsxyhFFDCYSXGAJ5008-80-28 04:48:55 Test Item Value Reference Range Interpretation Comments UA Glucose (test code = UA Glucose) 500 mg/dL A [facility] StationYopcdiuEWDRMZBEAU1490-76-13 04:48:55 Test Item Value Reference Range Interpretation Comments UA Bili (test code = Negative *NA*(04/14/2013 UA Bili) 23:48:55) [facility] StationSxatdvsGDLTHNAICO0532-21-24 04:48:55 Test Item Value Reference Range Interpretation Comments UA Ketones (test code = Trace A UA Ketones) *ABN*(04/14/2013 23:48:55) [facility] StationPgvyeihSETQEPCTCJ9758-59-77 04:48:55 Test Item Value Reference Range Interpretation Comments UA Blood (test code = Negative (04/14/2013 N UA Blood) 23:48:55) [facility] StationFlfddteAJQQLMOOVI0680-61-83 04:48:55 Test Item Value Reference Range Interpretation Comments UA Urobilinogen (test code = UA 0.2 0.1-1.0 N Urobilinogen) [facility] StationXibknyqBYNUAJENJQ5248-40-60 04:48:55 Test Item Value Reference Range Interpretation Comments UA Nitrite (test code Negative (04/14/2013 N = UA Nitrite) 23:48:55) [facility] StationHetndqgQWMRRJIHNX5565-34-11 04:48:55 Test Item Value Reference Range Interpretation Comments UA Leuk Est (test Negative (04/14/2013 N code = UA Leuk Est) 23:48:55) [facility] StationKkawgnaYHTKFEDWIZ3199-16-52 04:48:55 Test Item Value Reference Range Interpretation Comments UA Turbidity (test code = Clear (04/14/2013 N UA Turbidity) 23:48:55) [facility] StationGfhptfwPLGRWOGMHW0102-68-44 04:48:55 Test Item Value Reference Range Interpretation Comments UA Color (test code = Yellow *NA*(04/14/2013 UA Color) 23:48:55) [facility] StationCakdogkDSBYWPZLDH8764-72-89 04:48:55 Test Item Value Reference Range Interpretation Comments UA pH (test code = UA pH) 7.0 1 5.0-8.0 N [facility] StationHzrmbimQGSYACUGGB2366-93-76 04:48:55 Test Item Value Reference Range Interpretation Comments UA Spec Grav (test code = UA Spec 1.025 1 N Grav) [facility] StationRoaaawvPUXTZJUOMW3594-61-79 04:48:55 Test Item Value Reference Range Interpretation Comments UA Protein (test code = Trace A UA Protein) *ABN*(04/14/2013 23:48:55) [facility] StationVmzjcnjXAJLWWHMCP6797-94-50 04:48:55 Test Item Value Reference Range Interpretation Comments UA Unity Yeast (test code = UA Occasional /HPF A Unity Yeast) [facility] StationBfihrxtEEUJKNEKFV3081-83-17 04:48:55 Test Item Value Reference Range Interpretation Comments UA Mucus (test code = UA Mucus) Few /LPF N [facility] StationXkdqvhwXBZWQFXOXD5991-92-72 04:48:55 Test Item Value Reference Range Interpretation Comments UA Sq Epi (test code = UA Sq Moderate /LPF A Epi) [facility] StationJwrrxkyCQQCBUUYIO6461-87-72 04:48:55 Test Item Value Reference Range Interpretation Comments Micro? (test code = Performed (04/14/2013 N Micro?) 23:48:55) [facility] StationTxvmjjnBYSRELVSTA1777-35-01 04:48:55 Test Item Value Reference Range Interpretation Comments UA WBC (test code = UA WBC) 0-2 /HPF N [facility] StationZopkisgOHZHESQRJV5207-28-24 04:48:55 Test Item Value Reference Range Interpretation Comments UA Bacteria (test code = UA Occasional /HPF N Bacteria) [facility] StationNncfivaFDARYKSTIV8226-55-82 04:48:55 Test Item Value Reference Range Interpretation Comments UA Glucose (test code = UA Glucose) 500 mg/dL A [facility]PalqltaFZFWRKPZAM3115-60-03 04:48:55 Test Item Value Reference Range Interpretation Comments UA Bili (test code = Negative *NA*(04/14/2013 UA Bili) 23:48:55) [facility] StationHvrsvsiMYJUQWWXSU3105-36-68 04:48:55 Test Item Value Reference Range Interpretation Comments UA Ketones (test code = Trace A UA Ketones) *ABN*(04/14/2013 23:48:55) [facility] StationYommfskRAVARREOQC2017-71-41 04:48:55 Test Item Value Reference Range Interpretation Comments UA Blood (test code = Negative (04/14/2013 N UA Blood) 23:48:55) [facility] StationPlrcughPYZDLVHIEH6939-74-34 04:48:55 Test Item Value Reference Range Interpretation Comments UA Urobilinogen (test code = UA 0.2 0.1-1.0 N Urobilinogen) [facility] StationRdhatkfKLEGCKSHMN3318-14-81 04:48:55 Test Item Value Reference Range Interpretation Comments UA Nitrite (test code Negative (04/14/2013 N = UA Nitrite) 23:48:55) [facility] StationQzzanzwDWVHKYMTCK1956-21-69 04:48:55 Test Item Value Reference Range Interpretation Comments UA Leuk Est (test Negative (04/14/2013 N code = UA Leuk Est) 23:48:55) [facility] StationGjgwzobOYESUHGJFJ7268-50-36 04:48:55 Test Item Value Reference Range Interpretation Comments UA Turbidity (test code = Clear (04/14/2013 N UA Turbidity) 23:48:55) [facility] StationKlsxnqlVJISHBHONL6563-79-75 04:48:55 Test Item Value Reference Range Interpretation Comments UA Color (test code = Yellow *NA*(04/14/2013 UA Color) 23:48:55) [facility] StationXsbpxdhFJROZBSGJB2753-57-61 04:48:55 Test Item Value Reference Range Interpretation Comments UA pH (test code = UA pH) 7.0 1 5.0-8.0 N [facility] StationUvrmaxyUWTPMYTWAE9997-41-15 04:48:55 Test Item Value Reference Range Interpretation Comments UA Spec Grav (test code = UA Spec 1.025 1 N Grav) [facility] StationQuhqfqjJBVNXTPUOS2006-78-75 04:48:55 Test Item Value Reference Range Interpretation Comments UA Protein (test code = Trace A UA Protein) *ABN*(04/14/2013 23:48:55) [facility] StationBrnrjkzWRRIYMKTGR7992-91-10 04:48:55 Test Item Value Reference Range Interpretation Comments UA Unity Yeast (test code = UA Occasional /HPF A Unity Yeast) [facility] StationPbzufvgFSTTZYBCRD7339-86-87 04:48:55 Test Item Value Reference Range Interpretation Comments UA Mucus (test code = UA Mucus) Few /LPF N [facility] StationEeftejiYLACKZMAFH7483-78-39 04:48:55 Test Item Value Reference Range Interpretation Comments UA Sq Epi (test code = UA Sq Moderate /LPF A Epi) [facility] StationKpzzazjYSTGJSDZKP8142-89-45 04:48:55 Test Item Value Reference Range Interpretation Comments Micro? (test code = Performed (04/14/2013 N Micro?) 23:48:55) [facility] StationDivhlmlFUBCYUMGVF6757-44-44 04:48:55 Test Item Value Reference Range Interpretation Comments UA WBC (test code = UA WBC) 0-2 /HPF N [facility] StationOvbdyysCIPNGYRWQK8384-38-29 04:48:55 Test Item Value Reference Range Interpretation Comments UA Bacteria (test code = UA Occasional /HPF N Bacteria) [facility] StationBmdvzubZKWNUUFHDJ2435-65-08 04:48:55 Test Item Value Reference Range Interpretation Comments UA Glucose (test code = UA Glucose) 500 mg/dL A [facility] StationTdvydvpDLQZRCPOKQ2437-17-09 04:48:55 Test Item Value Reference Range Interpretation Comments UA Bili (test code = Negative *NA*(04/14/2013 UA Bili) 23:48:55) [facility] StationNkgjcymLVIYPHFJXP9886-04-51 04:48:55 Test Item Value Reference Range Interpretation Comments UA Ketones (test code = Trace A UA Ketones) *ABN*(04/14/2013 23:48:55) [facility] StationKtqidypKNDCCJKTTS1908-67-96 04:48:55 Test Item Value Reference Range Interpretation Comments UA Blood (test code = Negative (04/14/2013 N UA Blood) 23:48:55) [facility] StationXuhaquzZVRXSFELDX4483-74-84 04:48:55 Test Item Value Reference Range Interpretation Comments UA Urobilinogen (test code = UA 0.2 0.1-1.0 N Urobilinogen) [facility] StationGjpuekkZCGHMMLTAS8493-58-40 04:48:55 Test Item Value Reference Range Interpretation Comments UA Nitrite (test code Negative (04/14/2013 N = UA Nitrite) 23:48:55) [facility] StationTjohlfwLRHEQHOFNG7316-80-71 04:48:55 Test Item Value Reference Range Interpretation Comments UA Leuk Est (test Negative (04/14/2013 N code = UA Leuk Est) 23:48:55) [facility] StationQoarnroTPICQRUKFR4009-78-04 04:48:55 Test Item Value Reference Range Interpretation Comments UA Turbidity (test code = Clear (04/14/2013 N UA Turbidity) 23:48:55) [facility] StationQjbeqxsAWUPTTUVXX6733-01-49 04:48:55 Test Item Value Reference Range Interpretation Comments UA Color (test code = Yellow *NA*(04/14/2013 UA Color) 23:48:55) [facility] StationDfcxysyDNSMLLMXSC5563-71-01 04:48:55 Test Item Value Reference Range Interpretation Comments UA pH (test code = UA pH) 7.0 1 5.0-8.0 N [facility] StationAukjgfjOWMWPKRVCG5649-91-94 04:48:55 Test Item Value Reference Range Interpretation Comments UA Spec Grav (test code = UA Spec 1.025 1 N Grav) [facility] StationOuzrfayYZGDYVCCJS0948-57-25 04:48:55 Test Item Value Reference Range Interpretation Comments UA Protein (test code = Trace A UA Protein) *ABN*(04/14/2013 23:48:55) [facility] StationZkswuyhIFIXRUONOF0203-64-43 04:48:55 Test Item Value Reference Range Interpretation Comments UA Unity Yeast (test code = UA Occasional /HPF A Unity Yeast) [facility] StationQojtjiaPIMCXYXRHP2353-25-93 04:48:55 Test Item Value Reference Range Interpretation Comments UA Mucus (test code = UA Mucus) Few /LPF N [facility] StationKmzumjrMNZGWGXDWN9913-27-39 04:48:55 Test Item Value Reference Range Interpretation Comments UA Sq Epi (test code = UA Sq Moderate /LPF A Epi) [facility] StationLmywxuwIYIIAEYHMY0873-99-27 04:48:55 Test Item Value Reference Range Interpretation Comments Micro? (test code = Performed (04/14/2013 N Micro?) 23:48:55) [facility] StationWsuztmqVADAFMQUQI1398-14-82 04:48:55 Test Item Value Reference Range Interpretation Comments UA WBC (test code = UA WBC) 0-2 /HPF N [facility] StationYnwlgpaAPWMOJBVHS1265-45-27 04:48:55 Test Item Value Reference Range Interpretation Comments UA Bacteria (test code = UA Occasional /HPF N Bacteria) [facility] StationEbolmcaVHGMZYFHBX2042-08-93 04:48:55 Test Item Value Reference Range Interpretation Comments UA Glucose (test code = UA Glucose) 500 mg/dL A [facility] StationVorwwcoBSADLUXYQR4321-92-45 04:48:55 Test Item Value Reference Range Interpretation Comments UA Bili (test code = Negative *NA*(04/14/2013 UA Bili) 23:48:55) [facility] StationGfncctkTFSDGNXHBC1560-60-09 04:48:55 Test Item Value Reference Range Interpretation Comments UA Ketones (test code = Trace A UA Ketones) *ABN*(04/14/2013 23:48:55) [facility] StationNlqyumdYEJNBXDHDW8374-61-79 04:48:55 Test Item Value Reference Range Interpretation Comments UA Blood (test code = Negative (04/14/2013 N UA Blood) 23:48:55) [facility] StationWptpwwdCGTLPFEHOQ4337-70-58 04:48:55 Test Item Value Reference Range Interpretation Comments UA Urobilinogen (test code = UA 0.2 0.1-1.0 N Urobilinogen) [facility] StationWlxpmocKADPXMMDHT8585-64-54 04:48:55 Test Item Value Reference Range Interpretation Comments UA Nitrite (test code Negative (04/14/2013 N = UA Nitrite) 23:48:55) [facility] StationFuvfcnqFDIVOZYVWE5990-34-60 04:48:55 Test Item Value Reference Range Interpretation Comments UA Leuk Est (test Negative (04/14/2013 N code = UA Leuk Est) 23:48:55) [facility] StationOtrnycpGACGRASTNV0974-02-38 04:48:55 Test Item Value Reference Range Interpretation Comments UA Turbidity (test code = Clear (04/14/2013 N UA Turbidity) 23:48:55) [facility] StationNdbtawaWCZNCCWEUD5289-28-59 04:48:55 Test Item Value Reference Range Interpretation Comments UA Color (test code = Yellow *NA*(04/14/2013 UA Color) 23:48:55) [facility] StationKfunvapGKMHRBFRRN7170-97-56 04:48:55 Test Item Value Reference Range Interpretation Comments UA pH (test code = UA pH) 7.0 1 5.0-8.0 N [facility] StationTryndmyRCIWYRFUCB7320-27-91 04:48:55 Test Item Value Reference Range Interpretation Comments UA Spec Grav (test code = UA Spec 1.025 1 N Grav) [facility] StationCslwocoNRAWILDEFI9767-09-02 04:48:55 Test Item Value Reference Range Interpretation Comments UA Protein (test code = Trace A UA Protein) *ABN*(04/14/2013 23:48:55) [facility] StationKlfslhsVYFZZCOJVW4112-22-69 04:48:55 Test Item Value Reference Range Interpretation Comments UA Unity Yeast (test code = UA Occasional /HPF A Unity Yeast) [facility] StationIodpvbgBCCCYNDOGE1450-83-24 04:48:55 Test Item Value Reference Range Interpretation Comments UA Mucus (test code = UA Mucus) Few /LPF N [facility] StationHbkzvbqGQWMCZCTJP0019-38-13 04:48:55 Test Item Value Reference Range Interpretation Comments UA Sq Epi (test code = UA Sq Moderate /LPF A Epi) [facility] StationAoxhihhFILDDTZSXD9878-28-05 04:48:55 Test Item Value Reference Range Interpretation Comments Micro? (test code = Performed (04/14/2013 N Micro?) 23:48:55) [facility] StationVnxielmMZUAFIAVGQ7344-66-77 04:48:55 Test Item Value Reference Range Interpretation Comments UA WBC (test code = UA WBC) 0-2 /HPF N [facility] StationNzgevmfHUPCRPMTRC8398-57-51 04:48:55 Test Item Value Reference Range Interpretation Comments UA Bacteria (test code = UA Occasional /HPF N Bacteria) [facility] StationEderfsuWGOEUWTWDY8770-81-32 04:48:55 Test Item Value Reference Range Interpretation Comments UA Glucose (test code = UA Glucose) 500 mg/dL A [facility] StationUvmlqavWFCMOFZDBC8787-01-90 04:48:55 Test Item Value Reference Range Interpretation Comments UA Bili (test code = Negative *NA*(04/14/2013 UA Bili) 23:48:55) [facility] StationZsmaerqFOTZRZCHJL1952-06-59 04:48:55 Test Item Value Reference Range Interpretation Comments UA Ketones (test code = Trace A UA Ketones) *ABN*(04/14/2013 23:48:55) [facility] StationIzofjryPTIULQJGCE1940-72-12 04:48:55 Test Item Value Reference Range Interpretation Comments UA Blood (test code = Negative (04/14/2013 N UA Blood) 23:48:55) [facility] StationQqnfjweQWBSDBZYLC7637-99-58 04:48:55 Test Item Value Reference Range Interpretation Comments UA Urobilinogen (test code = UA 0.2 0.1-1.0 N Urobilinogen) [facility] StationHxiswtdNZOGVDLRSI5828-03-69 04:48:55 Test Item Value Reference Range Interpretation Comments UA Nitrite (test code Negative (04/14/2013 N = UA Nitrite) 23:48:55) [facility] StationJpweuphFDTSBXFYJC1388-71-25 04:48:55 Test Item Value Reference Range Interpretation Comments UA Leuk Est (test Negative (04/14/2013 N code = UA Leuk Est) 23:48:55) [facility] StationYjnqmwbDZDESQSBEN3590-36-21 04:48:55 Test Item Value Reference Range Interpretation Comments UA Turbidity (test code = Clear (04/14/2013 N UA Turbidity) 23:48:55) [facility] StationQzpopixHMABMTRNOL5945-06-31 04:48:55 Test Item Value Reference Range Interpretation Comments UA Color (test code = Yellow *NA*(04/14/2013 UA Color) 23:48:55) [facility] StationKuflpnnOTLZGKURAQ7309-70-84 04:48:55 Test Item Value Reference Range Interpretation Comments UA pH (test code = UA pH) 7.0 1 5.0-8.0 N [facility] StationGcefhtcOYPKETSPMQ7726-38-21 04:48:55 Test Item Value Reference Range Interpretation Comments UA Spec Grav (test code = UA Spec 1.025 1 N Grav) [facility] StationAlenrjdGXSUCQBZYP1463-42-17 04:48:55 Test Item Value Reference Range Interpretation Comments UA Protein (test code = Trace A UA Protein) *ABN*(04/14/2013 23:48:55) [facility]BsamyqpIMDJJDNAH3901-88-02 04:28:00 Test Item Value Reference Range Interpretation Comments S Preg (test code = S Negative *NA*(04/14/2013 Preg) 23:28:00) [facility]manNsiifqmSUGLSIYOG2214-38-77 04:28:00 Test Item Value Reference Range Interpretation Comments Lipase Lvl (test code = Lipase Lvl) 233 73-393 N [facility]JwsmvlqFZYLUFQVA6779-88-85 04:28:00 Test Item Value Reference Range Interpretation Comments Globulin (test code = Globulin) 4.1 2.0-4.0 H [facility]manSonkdnsWKKZTLLYE4585-26-87 04:28:00 Test Item Value Reference Range Interpretation Comments AGAP (test code = AGAP) 10.5 10.0-20.0 N [facility]manCsshifqRMLUBQIWB0807-40-66 04:28:00 Test Item Value Reference Range Interpretation Comments B/C Ratio (test code = B/C Ratio) 6 6-25 N [facility]manQtqmcjeCNRAFBVXG9714-24-05 04:28:00 Test Item Value Reference Range Interpretation Comments A/G Ratio (test code = A/G Ratio) 0.7 0.7-1.6 N [facility] HospitalDswlmqfYOKVXCVGW8572-53-39 04:28:00 Test Item Value Reference Range Interpretation Comments eGFR (test code = eGFR) 130 [facility]manPmafgpcRDVEUDGQS9609-72-16 04:28:00 Test Item Value Reference Range Interpretation Comments Albumin Lvl (test code = Albumin Lvl) 2.9 3.5-5.0 L [facility]manKponokbJNYTRVQCX8962-92-05 04:28:00 Test Item Value Reference Range Interpretation Comments ASPARTATE TRANSAMINASE 20 See_Comment N [Aut omated message] (test code = ASPARTATE The s ystem which TRANSAMINASE) generated this result transmitted ref erence range: <=37. Th e reference range was not used to interpr et this result as normal/abnormal . [facility] HospitalLgwvbeqKZEJDQQJB7814-39-78 04:28:00 Test Item Value Reference Range Interpretation Comments Bili Total (test code = Bili Total) 0.5 0.2-1.3 N [facility] HospitalWwmchuuRBENGFZOG5904-69-23 04:28:00 Test Item Value Reference Range Interpretation Comments Alk Phos (test code = Alk Phos) 89 39-136 N [facility] HospitalVemhqdfKJSUUTGKR8222-12-12 04:28:00 Test Item Value Reference Range Interpretation Comments ALANINE AMINOTRANSFERASE 11 See_Comment N [A utomated message] (test code = ALANINE The sys tem which AMINOTRANSFERASE) generated this result transmitted ref erence range: <=65. Th e reference range was not used to int erpret this result as normal/abnormal . [facility]manDtftfloTSKBVSKBJ0562-29-84 04:28:00 Test Item Value Reference Range Interpretation Comments Creatinine Lvl (test code = Creatinine 0.5 0.5-1.4 N Lvl) [facility]manVgszjulEOLIPLGOF9164-45-23 04:28:00 Test Item Value Reference Range Interpretation Comments BUN (test code = BUN) 3 7-22 L [facility]manLxnkemxUIKKVNSVO6132-26-36 04:28:00 Test Item Value Reference Range Interpretation Comments Glucose Lvl (test code = Glucose Lvl) 255 70-99 H [facility]manHgjybupGHTSEPHTN9715-47-73 04:28:00 Test Item Value Reference Range Interpretation Comments Total Protein (test code = Total 7.0 6.4-8.4 N Protein) [facility]manPvojywaSATSRLPIO3954-73-80 04:28:00 Test Item Value Reference Range Interpretation Comments Calcium Lvl (test code = Calcium Lvl) 8.7 8.5-10.5 N [facility]manAagewgeCBHPOGPPC6915-30-52 04:28:00 Test Item Value Reference Range Interpretation Comments CO2 (test code = CO2) 29 24-32 N [facility]manIhfixciGJSBPDDXU9202-14-27 04:28:00 Test Item Value Reference Range Interpretation Comments Chloride Lvl (test code = Chloride Lvl) 104 95-109 N [facility]manXwdtfjrORSAIRCSP0872-44-91 04:28:00 Test Item Value Reference Range Interpretation Comments Potassium Lvl (test code = Potassium 3.5 3.5-5.1 N Lvl) [facility]manPljzaeeTECLKHSRW9585-07-27 04:28:00 Test Item Value Reference Range Interpretation Comments Sodium Lvl (test code = Sodium Lvl) 140 135-145 N [facility]LnlleecVYYVZYCITH9562-88-39 04:28:00 Test Item Value Reference Range Interpretation Comments PROTIME (test code = PROTIME) 12.1 s 12.0-14.7 N [facility] CampusWccohcpQQZIBFSIPK3981-52-44 04:28:00 Test Item Value Reference Range Interpretation Comments aPTT (test code = aPTT) 39.0 s 22.9-35.8 H [facility] CampusHpankahILSIDNMEAL1676-35-64 04:28:00 Test Item Value Reference Range Interpretation Comments INR (test code = INR) 0.90 0.85-1.17 N [facility] CampusCpjentkKXRXYTMQAD3228-08-38 04:28:00 Test Item Value Reference Range Interpretation Comments MCH (test code = MCH) 29.4 pg 27.0-31.0 N [facility] CampusYcsbcqvEYOXYAHCPN7330-99-19 04:28:00 Test Item Value Reference Range Interpretation Comments MCV (test code = MCV) 86.1 81.0-99.0 N [facility] CampusQzylasdFRZCMXIEIY5395-17-66 04:28:00 Test Item Value Reference Range Interpretation Comments Hct (test code = Hct) 29.4 36.0-48.0 L [facility] CampusLoviilnORYMNTKUAX1136-43-11 04:28:00 Test Item Value Reference Range Interpretation Comments RDW (test code = RDW) 14.0 11.5-14.5 N [facility] CampusYqgaxhzJCOHBAUNOS3651-42-47 04:28:00 Test Item Value Reference Range Interpretation Comments WBC X 10x3 (test code = WBC X 10x3) 6.2 3.7-10.4 N [facility] CampusRlzupswZQJZVWYQZT9206-54-68 04:28:00 Test Item Value Reference Range Interpretation Comments Platelet (test code = Platelet) 178 133-450 N [facility] CampusJawnswvVUYZJLQKJR3727-91-30 04:28:00 Test Item Value Reference Range Interpretation Comments MCHC (test code = MCHC) 34.1 32.0-36.0 N [facility] CampusWxygopdLFDZGQPKME6850-70-88 04:28:00 Test Item Value Reference Range Interpretation Comments RBC X 10x6 (test code = RBC X 10x6) 3.41 4.20-5.40 L [facility] CampusAzizghcTBIKRESXQC3611-13-90 04:28:00 Test Item Value Reference Range Interpretation Comments Hgb (test code = Hgb) 10.0 12.0-16.0 L [facility] CampusEwnrljsXYIARFVQXL3759-01-66 04:28:00 Test Item Value Reference Range Interpretation Comments MPV (test code = MPV) 10.1 7.4-10.4 N [facility] CampusGcqnqybQIRLMMNPAK4393-19-58 04:28:00 Test Item Value Reference Range Interpretation Comments Segs-Bands # (test code = Segs-Bands #) 4.4 1.5-8.1 N [facility] CampusUvmhwukIAUQCXNNYU0555-28-75 04:28:00 Test Item Value Reference Range Interpretation Comments Basophils (test code = 0.7 See_Comment N [Aut omated message] The Basophils) system which ge nerated this result tra nsmitted reference range : <=1.0. The reference r leo was not used to int erpret this result as normal/abnormal . [facility] CampusVfvtyjjDJIXEUOWLG4437-72-14 04:28:00 Test Item Value Reference Range Interpretation Comments Segs (test code = Segs) 70.7 45.0-75.0 N [facility] CampusTdncdluXZBIBGYYSX4533-85-98 04:28:00 Test Item Value Reference Range Interpretation Comments Monocytes # (test code 0.3 See_Comment N [Aut omated message] The = Monocytes #) system which generated this result tra nsmitted reference range : <=0.8. The reference r leo was not used to int erpret this result as normal/abnormal . [facility] CampusKwappmoCPYYZYLRLH6898-20-69 04:28:00 Test Item Value Reference Range Interpretation Comments Lymphocytes # (test code = Lymphocytes 1.2 1.0-5.5 N #) [facility] CampusSkjbokrZUBZGZKTUU2106-07-44 04:28:00 Test Item Value Reference Range Interpretation Comments Monocytes (test code = Monocytes) 4.5 2.0-12.0 N [facility] CampusKzbhqnaEPROEEUSEF7274-25-65 04:28:00 Test Item Value Reference Range Interpretation Comments Eosinophils (test code = 4.1 See_Comment H [A utomated message] The Eosinophils) system which ge nerated this result tra nsmitted reference range : <=4.0. The reference r leo was not used to int erpret this result as normal/abnormal . [facility] CampusIguweecEDRDYCLNXY3871-01-42 04:28:00 Test Item Value Reference Range Interpretation Comments Lymphocytes (test code = Lymphocytes) 20.0 20.0-40.0 N [facility] CampusMahdjwwZVUJOLLREZ4771-26-89 04:28:00 Test Item Value Reference Range Interpretation Comments Basophils # (test code 0.0 See_Comment N [Aut omated message] The = Basophils #) system which generated this result tra nsmitted reference range : <=0.2. The reference r leo was not used to int erpret this result as normal/abnormal . [facility] CampusTtiwqxzTORTIHBAAN3878-38-58 04:28:00 Test Item Value Reference Range Interpretation Comments Eosinophils # (test code 0.3 See_Comment N [A utomated message] The = Eosinophils #) system whic h generated this result tra nsmitted reference range : <=0.5. The reference r leo was not used to int erpret this result as normal/abnormal . [facility]KgjlmaiQAZXAACAO1073-32-07 04:28:00 Test Item Value Reference Range Interpretation Comments S Preg (test code = S Negative *NA*(04/14/2013 Preg) 23:28:00) [facility]manKyejvgyZRRPMGVGO5266-60-79 04:28:00 Test Item Value Reference Range Interpretation Comments Lipase Lvl (test code = Lipase Lvl) 233 73-393 N [facility]manWojsiryQMSHNVIUZ0092-69-47 04:28:00 Test Item Value Reference Range Interpretation Comments Globulin (test code = Globulin) 4.1 2.0-4.0 H [facility]manNbglruiXLPIXGTLT0617-25-55 04:28:00 Test Item Value Reference Range Interpretation Comments AGAP (test code = AGAP) 10.5 10.0-20.0 N [facility]manBqwljnaTCIRVGPJE1925-28-05 04:28:00 Test Item Value Reference Range Interpretation Comments B/C Ratio (test code = B/C Ratio) 6 6-25 N [facility] [place]aufmanEbbjtutNTWFMHDTF6865-78-58 04:28:00 Test Item Value Reference Range Interpretation Comments A/G Ratio (test code = A/G Ratio) 0.7 0.7-1.6 N [facility]manAmhdavaBYSFUVQUM5057-25-39 04:28:00 Test Item Value Reference Range Interpretation Comments eGFR (test code = eGFR) 130 [facility]manWntgmhiNPBTLJNOK0843-94-83 04:28:00 Test Item Value Reference Range Interpretation Comments Albumin Lvl (test code = Albumin Lvl) 2.9 3.5-5.0 L [facility]manUhpbbmvPQRAEAGOC4439-48-62 04:28:00 Test Item Value Reference Range Interpretation Comments ASPARTATE TRANSAMINASE 20 See_Comment N [Aut omated message] (test code = ASPARTATE The s ystem which TRANSAMINASE) generated this result transmitted ref erence range: <=37. Th e reference range was not used to interpr et this result as normal/abnormal . [facility]manWovxbroSFEHUIGTF0304-47-30 04:28:00 Test Item Value Reference Range Interpretation Comments Bili Total (test code = Bili Total) 0.5 0.2-1.3 N [facility]manDuqutfkEDXWGBHGL0761-08-19 04:28:00 Test Item Value Reference Range Interpretation Comments Alk Phos (test code = Alk Phos) 89 39-136 N [facility]manMrxdkzrUBDMDCOFR8060-35-47 04:28:00 Test Item Value Reference Range Interpretation Comments ALANINE AMINOTRANSFERASE 11 See_Comment N [A utomated message] (test code = ALANINE The sys tem which AMINOTRANSFERASE) generated this result transmitted ref erence range: <=65. Th e reference range was not used to int erpret this result as normal/abnormal . [facility]manVokbeehLOEPDSMMQ3086-31-54 04:28:00 Test Item Value Reference Range Interpretation Comments Creatinine Lvl (test code = Creatinine 0.5 0.5-1.4 N Lvl) [facility]manAyoukmgUTDLOFXKR4700-04-63 04:28:00 Test Item Value Reference Range Interpretation Comments BUN (test code = BUN) 3 7-22 L [facility]manYmbrcoiFBYOEREGZ0564-46-26 04:28:00 Test Item Value Reference Range Interpretation Comments Glucose Lvl (test code = Glucose Lvl) 255 70-99 H [facility]manGgplymePZPOFWZYP8423-39-65 04:28:00 Test Item Value Reference Range Interpretation Comments Total Protein (test code = Total 7.0 6.4-8.4 N Protein) [facility]manZyvvwsuBBKHQCMJX1553-18-89 04:28:00 Test Item Value Reference Range Interpretation Comments Calcium Lvl (test code = Calcium Lvl) 8.7 8.5-10.5 N [facility]manHscuxyrCQJVZVTYP3435-69-39 04:28:00 Test Item Value Reference Range Interpretation Comments CO2 (test code = CO2) 29 24-32 N [facility]manEuoyjrmCEBGRJGFO1954-60-54 04:28:00 Test Item Value Reference Range Interpretation Comments Chloride Lvl (test code = Chloride Lvl) 104 95-109 N [facility]manIdchmfwFNMLKFJZW7388-17-77 04:28:00 Test Item Value Reference Range Interpretation Comments Potassium Lvl (test code = Potassium 3.5 3.5-5.1 N Lvl) [facility]manPhmehjyWYHUNVGKO2437-17-61 04:28:00 Test Item Value Reference Range Interpretation Comments Sodium Lvl (test code = Sodium Lvl) 140 135-145 N [facility] CampusMaqmbrxCXWPSMMTSA1802-62-50 04:28:00 Test Item Value Reference Range Interpretation Comments PROTIME (test code = PROTIME) 12.1 s 12.0-14.7 N [facility] CampusRdjawjsRKUSNEZPDO6738-34-00 04:28:00 Test Item Value Reference Range Interpretation Comments aPTT (test code = aPTT) 39.0 s 22.9-35.8 H [facility] CampusAddbjexIIDFMMRRTF4143-78-00 04:28:00 Test Item Value Reference Range Interpretation Comments INR (test code = INR) 0.90 0.85-1.17 N [facility] CampusVziergnDKPHIHPABQ5189-49-20 04:28:00 Test Item Value Reference Range Interpretation Comments MCH (test code = MCH) 29.4 pg 27.0-31.0 N [facility] CampusTtqdxlkRPEGHNIQBA7855-71-13 04:28:00 Test Item Value Reference Range Interpretation Comments MCV (test code = MCV) 86.1 81.0-99.0 N [facility] CampusHkfnhtfGRPQHSRXSW7751-74-28 04:28:00 Test Item Value Reference Range Interpretation Comments Hct (test code = Hct) 29.4 36.0-48.0 L [facility] CampusDclssehAORGODRSZG0941-92-40 04:28:00 Test Item Value Reference Range Interpretation Comments RDW (test code = RDW) 14.0 11.5-14.5 N [facility] CampusNwwfxuzYSKXEJFYMV2948-02-51 04:28:00 Test Item Value Reference Range Interpretation Comments WBC X 10x3 (test code = WBC X 10x3) 6.2 3.7-10.4 N [facility] CampusLudauhdLIFVIQOYIV6477-05-94 04:28:00 Test Item Value Reference Range Interpretation Comments Platelet (test code = Platelet) 178 133-450 N [facility] CampusGzfbperUIRBAUYDPD7279-43-24 04:28:00 Test Item Value Reference Range Interpretation Comments MCHC (test code = MCHC) 34.1 32.0-36.0 N [facility] CampusKmapibjGAFBXADGAH2621-21-35 04:28:00 Test Item Value Reference Range Interpretation Comments RBC X 10x6 (test code = RBC X 10x6) 3.41 4.20-5.40 L [facility] CampusZgguptxFRWNPPGLXD1167-41-73 04:28:00 Test Item Value Reference Range Interpretation Comments Hgb (test code = Hgb) 10.0 12.0-16.0 L [facility] CampusGyqzmcxBKELXVMGTA1058-73-57 04:28:00 Test Item Value Reference Range Interpretation Comments MPV (test code = MPV) 10.1 7.4-10.4 N [facility] CampusYalvqxcJTQLQRQOWW1851-79-76 04:28:00 Test Item Value Reference Range Interpretation Comments Segs-Bands # (test code = Segs-Bands #) 4.4 1.5-8.1 N [facility] CampusQmkuibrPMEAKFCIFD6221-30-64 04:28:00 Test Item Value Reference Range Interpretation Comments Basophils (test code = 0.7 See_Comment N [Aut omated message] The Basophils) system which ge nerated this result tra nsmitted reference range : <=1.0. The reference r leo was not used to int erpret this result as normal/abnormal . [facility] CampusGwiclkcIGEUZSOETZ7129-59-04 04:28:00 Test Item Value Reference Range Interpretation Comments Segs (test code = Segs) 70.7 45.0-75.0 N [facility] CampusYieieuuOWRGRFLUEA0990-32-12 04:28:00 Test Item Value Reference Range Interpretation Comments Monocytes # (test code 0.3 See_Comment N [Aut omated message] The = Monocytes #) system which generated this result tra nsmitted reference range : <=0.8. The reference r leo was not used to int erpret this result as normal/abnormal . [facility] CampusOegworiCMLMEBPFFR0442-33-12 04:28:00 Test Item Value Reference Range Interpretation Comments Lymphocytes # (test code = Lymphocytes 1.2 1.0-5.5 N #) [facility] CampusZtxnucqDTGFXZZVUE7593-60-01 04:28:00 Test Item Value Reference Range Interpretation Comments Monocytes (test code = Monocytes) 4.5 2.0-12.0 N [facility] CampusBaaaktnAXFBACEAOY6287-65-66 04:28:00 Test Item Value Reference Range Interpretation Comments Eosinophils (test code = 4.1 See_Comment H [A utomated message] The Eosinophils) system which ge nerated this result tra nsmitted reference range : <=4.0. The reference r leo was not used to int erpret this result as normal/abnormal . [facility] CampusXdzpkkcTADHJGYZAF7657-96-91 04:28:00 Test Item Value Reference Range Interpretation Comments Lymphocytes (test code = Lymphocytes) 20.0 20.0-40.0 N [facility] CampusRwewdmpOIYTSCUCGE9529-81-79 04:28:00 Test Item Value Reference Range Interpretation Comments Basophils # (test code 0.0 See_Comment N [Aut omated message] The = Basophils #) system which generated this result tra nsmitted reference range : <=0.2. The reference r leo was not used to int erpret this result as normal/abnormal . [facility] CampusKlycluqONREBSBQET6639-99-81 04:28:00 Test Item Value Reference Range Interpretation Comments Eosinophils # (test code 0.3 See_Comment N [A utomated message] The = Eosinophils #) system whic h generated this result tra nsmitted reference range : <=0.5. The reference r leo was not used to int erpret this result as normal/abnormal . [facility]manPrkbquhPLBYDORFV7226-95-79 04:28:00 Test Item Value Reference Range Interpretation Comments S Preg (test code = S Negative *NA*(04/14/2013 Preg) 23:28:00) [facility]manTbbmhpmDVJVLAACS6433-83-47 04:28:00 Test Item Value Reference Range Interpretation Comments Lipase Lvl (test code = Lipase Lvl) 233 73-393 N [facility]manAgxnvbsBJLNDUWRA7282-05-84 04:28:00 Test Item Value Reference Range Interpretation Comments Globulin (test code = Globulin) 4.1 2.0-4.0 H [facility]manKtxyrreDJGYZOXVA1095-53-81 04:28:00 Test Item Value Reference Range Interpretation Comments AGAP (test code = AGAP) 10.5 10.0-20.0 N [facility]manEjzclavJPMMLPDLQ2318-54-93 04:28:00 Test Item Value Reference Range Interpretation Comments B/C Ratio (test code = B/C Ratio) 6 6-25 N [facility]manGjhobaxGJYQBGMHF9188-49-60 04:28:00 Test Item Value Reference Range Interpretation Comments A/G Ratio (test code = A/G Ratio) 0.7 0.7-1.6 N [facility]manMulgripHORLAYUWS4084-66-05 04:28:00 Test Item Value Reference Range Interpretation Comments eGFR (test code = eGFR) 130 [facility]manNpfhclhSUECHBIFI1431-40-72 04:28:00 Test Item Value Reference Range Interpretation Comments Albumin Lvl (test code = Albumin Lvl) 2.9 3.5-5.0 L [facility]manNprhdvlEYFDLTRPK7100-94-94 04:28:00 Test Item Value Reference Range Interpretation Comments ASPARTATE TRANSAMINASE 20 See_Comment N [Aut omated message] (test code = ASPARTATE The s ystem which TRANSAMINASE) generated this result transmitted ref erence range: <=37. Th e reference range was not used to interpr et this result as normal/abnormal . [facility]manOpxxdvnAPBHJHIXB7320-83-58 04:28:00 Test Item Value Reference Range Interpretation Comments Bili Total (test code = Bili Total) 0.5 0.2-1.3 N [facility]manKjzhsdwPEZXSITCE8258-38-91 04:28:00 Test Item Value Reference Range Interpretation Comments Alk Phos (test code = Alk Phos) 89 39-136 N [facility]manQubsuwdYRDUNDIBD4443-77-45 04:28:00 Test Item Value Reference Range Interpretation Comments ALANINE AMINOTRANSFERASE 11 See_Comment N [A utomated message] (test code = ALANINE The sys tem which AMINOTRANSFERASE) generated this result transmitted ref erence range: <=65. Th e reference range was not used to int erpret this result as normal/abnormal . [facility]manMjkwlypXNMPCYWTI8180-36-67 04:28:00 Test Item Value Reference Range Interpretation Comments Creatinine Lvl (test code = Creatinine 0.5 0.5-1.4 N Lvl) [facility]manNnzimbwFWIHLWSFC4077-76-28 04:28:00 Test Item Value Reference Range Interpretation Comments BUN (test code = BUN) 3 7-22 L [facility]manMljhyrsCUHMFVGBK5605-04-36 04:28:00 Test Item Value Reference Range Interpretation Comments Glucose Lvl (test code = Glucose Lvl) 255 70-99 H [facility]manEefckvhHXESSZZSA4679-27-97 04:28:00 Test Item Value Reference Range Interpretation Comments Total Protein (test code = Total 7.0 6.4-8.4 N Protein) [facility]manQqxgltgFEMSOWWMJ2093-98-91 04:28:00 Test Item Value Reference Range Interpretation Comments Calcium Lvl (test code = Calcium Lvl) 8.7 8.5-10.5 N [facility]manBqxfwdaOOZRBPUOB8556-74-03 04:28:00 Test Item Value Reference Range Interpretation Comments CO2 (test code = CO2) 29 24-32 N [facility]manLocaimqDUPYLFCMM9169-91-29 04:28:00 Test Item Value Reference Range Interpretation Comments Chloride Lvl (test code = Chloride Lvl) 104 95-109 N [facility]manBsngqqoMXIUUGHQS5647-32-81 04:28:00 Test Item Value Reference Range Interpretation Comments Potassium Lvl (test code = Potassium 3.5 3.5-5.1 N Lvl) [facility]manLabapecKOKDSNTRV2703-37-21 04:28:00 Test Item Value Reference Range Interpretation Comments Sodium Lvl (test code = Sodium Lvl) 140 135-145 N [facility] CampusOkpcdnzWWVXJIPFFE4668-39-14 04:28:00 Test Item Value Reference Range Interpretation Comments PROTIME (test code = PROTIME) 12.1 s 12.0-14.7 N [facility] CampusKvspksyVPDRINEYIQ5481-71-26 04:28:00 Test Item Value Reference Range Interpretation Comments aPTT (test code = aPTT) 39.0 s 22.9-35.8 H [facility] CampusBznkfwmKHOWJHFNQI4888-87-74 04:28:00 Test Item Value Reference Range Interpretation Comments INR (test code = INR) 0.90 0.85-1.17 N [facility] CampusAhzcndaISNAPPQPSR4159-30-94 04:28:00 Test Item Value Reference Range Interpretation Comments MCH (test code = MCH) 29.4 pg 27.0-31.0 N [facility] CampusHtfuwojBEAEEBZTTB7351-85-88 04:28:00 Test Item Value Reference Range Interpretation Comments MCV (test code = MCV) 86.1 81.0-99.0 N [facility] CampusEzfjadvITXDCLQLOU3532-23-94 04:28:00 Test Item Value Reference Range Interpretation Comments Hct (test code = Hct) 29.4 36.0-48.0 L [facility] CampusJenixmzZJZDTBVHFI0500-13-05 04:28:00 Test Item Value Reference Range Interpretation Comments RDW (test code = RDW) 14.0 11.5-14.5 N [facility] CampusGpxtlqiDEXJFQHKQS0668-39-57 04:28:00 Test Item Value Reference Range Interpretation Comments WBC X 10x3 (test code = WBC X 10x3) 6.2 3.7-10.4 N [facility] CampusStlelthIBFNLPGTUO7046-64-16 04:28:00 Test Item Value Reference Range Interpretation Comments Platelet (test code = Platelet) 178 133-450 N [facility] CampusOmcglgvXXQMVTWFTK3753-95-16 04:28:00 Test Item Value Reference Range Interpretation Comments MCHC (test code = MCHC) 34.1 32.0-36.0 N [facility] CampusGxbiwjgJBKBBOSFEW2464-66-68 04:28:00 Test Item Value Reference Range Interpretation Comments RBC X 10x6 (test code = RBC X 10x6) 3.41 4.20-5.40 L [facility] CampusEplwijaOLPVXPWCCN4176-60-32 04:28:00 Test Item Value Reference Range Interpretation Comments Hgb (test code = Hgb) 10.0 12.0-16.0 L [facility] CampusVnegnboNEDZPQVWHJ5237-15-03 04:28:00 Test Item Value Reference Range Interpretation Comments MPV (test code = MPV) 10.1 7.4-10.4 N [facility] CampusUitjgfeDQFWWZAEYN2295-17-31 04:28:00 Test Item Value Reference Range Interpretation Comments Segs-Bands # (test code = Segs-Bands #) 4.4 1.5-8.1 N [facility] CampusSrupaybZBWMGICTJG1740-73-95 04:28:00 Test Item Value Reference Range Interpretation Comments Basophils (test code = 0.7 See_Comment N [Aut omated message] The Basophils) system which ge nerated this result tra nsmitted reference range : <=1.0. The reference r leo was not used to int erpret this result as normal/abnormal . [facility] CampusYxhbwliNDVZOTPODN4173-81-94 04:28:00 Test Item Value Reference Range Interpretation Comments Segs (test code = Segs) 70.7 45.0-75.0 N [facility] CampusAgbhmuwKATKKXYBAJ4230-46-31 04:28:00 Test Item Value Reference Range Interpretation Comments Monocytes # (test code 0.3 See_Comment N [Aut omated message] The = Monocytes #) system which generated this result tra nsmitted reference range : <=0.8. The reference r leo was not used to int erpret this result as normal/abnormal . [facility] CampusOuaeoupZZEOTNIDBD2631-04-79 04:28:00 Test Item Value Reference Range Interpretation Comments Lymphocytes # (test code = Lymphocytes 1.2 1.0-5.5 N #) [facility] CampusVouccttUAKDPPQBXW8169-08-05 04:28:00 Test Item Value Reference Range Interpretation Comments Monocytes (test code = Monocytes) 4.5 2.0-12.0 N [facility] CampusWcnkdyxFJIBTLHCLK4668-51-45 04:28:00 Test Item Value Reference Range Interpretation Comments Eosinophils (test code = 4.1 See_Comment H [A utomated message] The Eosinophils) system which ge nerated this result tra nsmitted reference range : <=4.0. The reference r leo was not used to int erpret this result as normal/abnormal . [facility] CampusGaracqaOQLBLMUOQS0219-02-16 04:28:00 Test Item Value Reference Range Interpretation Comments Lymphocytes (test code = Lymphocytes) 20.0 20.0-40.0 N [facility] CampusKkvejeeTQIAEAUTTU4959-93-73 04:28:00 Test Item Value Reference Range Interpretation Comments Basophils # (test code 0.0 See_Comment N [Aut omated message] The = Basophils #) system which generated this result tra nsmitted reference range : <=0.2. The reference r leo was not used to int erpret this result as normal/abnormal . [facility] CampusVvzchwfQPQNVLSKEJ8734-20-15 04:28:00 Test Item Value Reference Range Interpretation Comments Eosinophils # (test code 0.3 See_Comment N [A utomated message] The = Eosinophils #) system whic h generated this result tra nsmitted reference range : <=0.5. The reference r leo was not used to int erpret this result as normal/abnormal . [facility]manPlkopibKEOXKBVXZ8600-41-14 04:28:00 Test Item Value Reference Range Interpretation Comments S Preg (test code = S Negative *NA*(04/14/2013 Preg) 23:28:00) [facility]manUdiqndyPEDDWZDDS2619-22-17 04:28:00 Test Item Value Reference Range Interpretation Comments Lipase Lvl (test code = Lipase Lvl) 233 73-393 N [facility]manQjjimgoPZIYASGIO4832-58-23 04:28:00 Test Item Value Reference Range Interpretation Comments Globulin (test code = Globulin) 4.1 2.0-4.0 H [facility]manUhujephNQKMICHTQ5291-32-92 04:28:00 Test Item Value Reference Range Interpretation Comments AGAP (test code = AGAP) 10.5 10.0-20.0 N [facility]manCitchgfTUHITHQWJ7206-42-53 04:28:00 Test Item Value Reference Range Interpretation Comments B/C Ratio (test code = B/C Ratio) 6 6-25 N [facility]manCjnuonnYSXVVOHIG7344-02-96 04:28:00 Test Item Value Reference Range Interpretation Comments A/G Ratio (test code = A/G Ratio) 0.7 0.7-1.6 N [facility]manIqesdtnPFATNTMKQ3185-66-97 04:28:00 Test Item Value Reference Range Interpretation Comments eGFR (test code = eGFR) 130 [facility]manTbchnwiHMYHKIFQA5869-74-01 04:28:00 Test Item Value Reference Range Interpretation Comments Albumin Lvl (test code = Albumin Lvl) 2.9 3.5-5.0 L [facility]manUszyomgWUXVYAPAM0241-36-17 04:28:00 Test Item Value Reference Range Interpretation Comments ASPARTATE TRANSAMINASE 20 See_Comment N [Aut omated message] (test code = ASPARTATE The s ystem which TRANSAMINASE) generated this result transmitted ref erence range: <=37. Th e reference range was not used to interpr et this result as normal/abnormal . [facility]manDvqtgtpFXFFCNZUI5279-64-05 04:28:00 Test Item Value Reference Range Interpretation Comments Bili Total (test code = Bili Total) 0.5 0.2-1.3 N [facility]manTmpkxooELIJNXUEB2205-59-80 04:28:00 Test Item Value Reference Range Interpretation Comments Alk Phos (test code = Alk Phos) 89 39-136 N [facility]manBcpuptlCRIVKJDLS8993-28-72 04:28:00 Test Item Value Reference Range Interpretation Comments ALANINE AMINOTRANSFERASE 11 See_Comment N [A utomated message] (test code = ALANINE The sys tem which AMINOTRANSFERASE) generated this result transmitted ref erence range: <=65. Th e reference range was not used to int erpret this result as normal/abnormal . [facility]manYwvehzoCPIREYTZP0931-40-48 04:28:00 Test Item Value Reference Range Interpretation Comments Creatinine Lvl (test code = Creatinine 0.5 0.5-1.4 N Lvl) [facility]manTfbifkgRMLALWDVN5262-65-29 04:28:00 Test Item Value Reference Range Interpretation Comments BUN (test code = BUN) 3 7-22 L [facility]manMyxczgbWADGHAAZH1268-01-60 04:28:00 Test Item Value Reference Range Interpretation Comments Glucose Lvl (test code = Glucose Lvl) 255 70-99 H [facility]manMbmmxlqSPHORONBV7467-04-10 04:28:00 Test Item Value Reference Range Interpretation Comments Total Protein (test code = Total 7.0 6.4-8.4 N Protein) [facility]manYoxuhjmVBFCIAVBT2524-20-31 04:28:00 Test Item Value Reference Range Interpretation Comments Calcium Lvl (test code = Calcium Lvl) 8.7 8.5-10.5 N [facility]manSbjcymvGWBHUPKST5252-53-52 04:28:00 Test Item Value Reference Range Interpretation Comments CO2 (test code = CO2) 29 24-32 N [facility]manOifpdadZZRWKSYGK9065-21-22 04:28:00 Test Item Value Reference Range Interpretation Comments Chloride Lvl (test code = Chloride Lvl) 104 95-109 N [facility]manCanxxkjDAUERBLZE7259-00-74 04:28:00 Test Item Value Reference Range Interpretation Comments Potassium Lvl (test code = Potassium 3.5 3.5-5.1 N Lvl) [facility]manKqusagiNMHWQYCFX8616-70-62 04:28:00 Test Item Value Reference Range Interpretation Comments Sodium Lvl (test code = Sodium Lvl) 140 135-145 N [facility] CampusUrbjikwKVBRESVZVD9358-49-37 04:28:00 Test Item Value Reference Range Interpretation Comments PROTIME (test code = PROTIME) 12.1 s 12.0-14.7 N [facility] CampusKyhyywxKYHTJWZGNG6248-65-72 04:28:00 Test Item Value Reference Range Interpretation Comments aPTT (test code = aPTT) 39.0 s 22.9-35.8 H [facility] CampusBoewclyCZYQDLCFCN9315-86-27 04:28:00 Test Item Value Reference Range Interpretation Comments INR (test code = INR) 0.90 0.85-1.17 N [facility] CampusYximixkMCBSRMZFRP9224-38-62 04:28:00 Test Item Value Reference Range Interpretation Comments MCH (test code = MCH) 29.4 pg 27.0-31.0 N [facility] CampusNefwumrXBFRSIKIEC6393-00-03 04:28:00 Test Item Value Reference Range Interpretation Comments MCV (test code = MCV) 86.1 81.0-99.0 N [facility] CampusNfararlWWJOCZERVF3897-73-16 04:28:00 Test Item Value Reference Range Interpretation Comments Hct (test code = Hct) 29.4 36.0-48.0 L [facility] CampusFerrobqJYREFWLYMK3628-65-75 04:28:00 Test Item Value Reference Range Interpretation Comments RDW (test code = RDW) 14.0 11.5-14.5 N [facility] CampusSbuvegjNPYQOZHIMQ1392-36-17 04:28:00 Test Item Value Reference Range Interpretation Comments WBC X 10x3 (test code = WBC X 10x3) 6.2 3.7-10.4 N [facility] CampusTkpbefuYYJKHVHHPV6527-11-48 04:28:00 Test Item Value Reference Range Interpretation Comments Platelet (test code = Platelet) 178 133-450 N [facility] CampusRtydhbjEHAKOGINXV5158-33-42 04:28:00 Test Item Value Reference Range Interpretation Comments MCHC (test code = MCHC) 34.1 32.0-36.0 N [facility] CampusVifgebcRJARRXEMSJ4614-73-53 04:28:00 Test Item Value Reference Range Interpretation Comments RBC X 10x6 (test code = RBC X 10x6) 3.41 4.20-5.40 L [facility] CampusHttaofmFTIFDHXNPI3001-68-96 04:28:00 Test Item Value Reference Range Interpretation Comments Hgb (test code = Hgb) 10.0 12.0-16.0 L [facility] CampusCcpkhweTVYXZZLMDD8156-41-24 04:28:00 Test Item Value Reference Range Interpretation Comments MPV (test code = MPV) 10.1 7.4-10.4 N [facility] CampusVowxqeoGWBKMAGETK0178-42-19 04:28:00 Test Item Value Reference Range Interpretation Comments Segs-Bands # (test code = Segs-Bands #) 4.4 1.5-8.1 N [facility] CampusEbaezmnRGRXUMYZML2914-53-17 04:28:00 Test Item Value Reference Range Interpretation Comments Basophils (test code = 0.7 See_Comment N [Aut omated message] The Basophils) system which ge nerated this result tra nsmitted reference range : <=1.0. The reference r leo was not used to int erpret this result as normal/abnormal . [facility] CampusDbodgshMSQVWUFEXX5415-72-84 04:28:00 Test Item Value Reference Range Interpretation Comments Segs (test code = Segs) 70.7 45.0-75.0 N [facility] CampusMzizwxmVNRQZRMAEJ0562-20-57 04:28:00 Test Item Value Reference Range Interpretation Comments Monocytes # (test code 0.3 See_Comment N [Aut omated message] The = Monocytes #) system which generated this result tra nsmitted reference range : <=0.8. The reference r leo was not used to int erpret this result as normal/abnormal . [facility] CampusQhcxscnMVYUWRVPEX2984-64-82 04:28:00 Test Item Value Reference Range Interpretation Comments Lymphocytes # (test code = Lymphocytes 1.2 1.0-5.5 N #) [facility]PgwjjbzNXDWEWHQGM1752-07-32 04:28:00 Test Item Value Reference Range Interpretation Comments Monocytes (test code = Monocytes) 4.5 2.0-12.0 N [facility] CampusKplhxjzRULDSKQQPV6800-50-90 04:28:00 Test Item Value Reference Range Interpretation Comments Eosinophils (test code = 4.1 See_Comment H [A utomated message] The Eosinophils) system which ge nerated this result tra nsmitted reference range : <=4.0. The reference r leo was not used to int erpret this result as normal/abnormal . [facility] CampusGgjnxajRKOQRSQYKJ3236-61-70 04:28:00 Test Item Value Reference Range Interpretation Comments Lymphocytes (test code = Lymphocytes) 20.0 20.0-40.0 N [facility] CampusPubadnnWFXQNBZVPJ9261-13-69 04:28:00 Test Item Value Reference Range Interpretation Comments Basophils # (test code 0.0 See_Comment N [Aut omated message] The = Basophils #) system which generated this result tra nsmitted reference range : <=0.2. The reference r leo was not used to int erpret this result as normal/abnormal . [facility] CampusDuesdwtIKJGFWIWUR4943-86-20 04:28:00 Test Item Value Reference Range Interpretation Comments Eosinophils # (test code 0.3 See_Comment N [A utomated message] The = Eosinophils #) system whic h generated this result tra nsmitted reference range : <=0.5. The reference r leo was not used to int erpret this result as normal/abnormal . [facility]PigqhdwEWETBRRHN0939-81-54 04:28:00 Test Item Value Reference Range Interpretation Comments S Preg (test code = S Negative *NA*(04/14/2013 Preg) 23:28:00) [facility]SfmomtdZAOJEGAPA2047-64-75 04:28:00 Test Item Value Reference Range Interpretation Comments Lipase Lvl (test code = Lipase Lvl) 233 73-393 N [facility]IhzpavgYUQMDZDDL8091-44-37 04:28:00 Test Item Value Reference Range Interpretation Comments Globulin (test code = Globulin) 4.1 2.0-4.0 H [facility]HwpfqljOYEEEGLMN2662-54-63 04:28:00 Test Item Value Reference Range Interpretation Comments AGAP (test code = AGAP) 10.5 10.0-20.0 N [facility]manYczackjPXLKCOPNJ3075-20-87 04:28:00 Test Item Value Reference Range Interpretation Comments B/C Ratio (test code = B/C Ratio) 6 6-25 N [facility]AgjdztcOJFAYQDJB0171-73-00 04:28:00 Test Item Value Reference Range Interpretation Comments A/G Ratio (test code = A/G Ratio) 0.7 0.7-1.6 N [facility]manXihubrcVSTHLNCWI5503-92-14 04:28:00 Test Item Value Reference Range Interpretation Comments eGFR (test code = eGFR) 130 [facility]OwlodtlAEIBEOTXF0401-53-38 04:28:00 Test Item Value Reference Range Interpretation Comments Albumin Lvl (test code = Albumin Lvl) 2.9 3.5-5.0 L [facility]manBzndlkyGSZYVOBIP3919-05-17 04:28:00 Test Item Value Reference Range Interpretation Comments ASPARTATE TRANSAMINASE 20 See_Comment N [Aut omated message] (test code = ASPARTATE The s ystem which TRANSAMINASE) generated this result transmitted ref erence range: <=37. Th e reference range was not used to interpr et this result as normal/abnormal . [facility]KefgkvsEIEBEAGXF4683-28-24 04:28:00 Test Item Value Reference Range Interpretation Comments Bili Total (test code = Bili Total) 0.5 0.2-1.3 N [facility]manHktzteyRAPRRJZYP5341-19-73 04:28:00 Test Item Value Reference Range Interpretation Comments Alk Phos (test code = Alk Phos) 89 39-136 N [facility]XjdtbuoGKVJOQOWW3903-43-92 04:28:00 Test Item Value Reference Range Interpretation Comments ALANINE AMINOTRANSFERASE 11 See_Comment N [A utomated message] (test code = ALANINE The sys tem which AMINOTRANSFERASE) generated this result transmitted ref erence range: <=65. Th e reference range was not used to int erpret this result as normal/abnormal . [facility]MjwawjxMUSNQXZFY0132-06-91 04:28:00 Test Item Value Reference Range Interpretation Comments Creatinine Lvl (test code = Creatinine 0.5 0.5-1.4 N Lvl) [facility]MdrddjvGHGTRSAUI0814-40-77 04:28:00 Test Item Value Reference Range Interpretation Comments BUN (test code = BUN) 3 7-22 L [facility]BkdfsxoWCBKSVQWK1592-11-40 04:28:00 Test Item Value Reference Range Interpretation Comments Glucose Lvl (test code = Glucose Lvl) 255 70-99 H [facility]manAqyxfxtMWZZDGTUB2455-03-55 04:28:00 Test Item Value Reference Range Interpretation Comments Total Protein (test code = Total 7.0 6.4-8.4 N Protein) [facility]manBsrfhbsARCARFTEM8319-63-49 04:28:00 Test Item Value Reference Range Interpretation Comments Calcium Lvl (test code = Calcium Lvl) 8.7 8.5-10.5 N [facility]manSoqljnaGSDOTSWET7453-69-70 04:28:00 Test Item Value Reference Range Interpretation Comments CO2 (test code = CO2) 29 24-32 N [facility]manCgmwsaiMQJAVHEDG5113-06-58 04:28:00 Test Item Value Reference Range Interpretation Comments Chloride Lvl (test code = Chloride Lvl) 104 95-109 N [facility]manVkkysgoDPVMPDIEL5480-95-56 04:28:00 Test Item Value Reference Range Interpretation Comments Potassium Lvl (test code = Potassium 3.5 3.5-5.1 N Lvl) [facility]manFhjzdziXSKBFVKPI4589-06-94 04:28:00 Test Item Value Reference Range Interpretation Comments Sodium Lvl (test code = Sodium Lvl) 140 135-145 N [facility] CampusQwgwukfYPXOKZZYKR6128-21-20 04:28:00 Test Item Value Reference Range Interpretation Comments PROTIME (test code = PROTIME) 12.1 s 12.0-14.7 N [facility] CampusXweymvtJRIZRDVCXM0632-67-37 04:28:00 Test Item Value Reference Range Interpretation Comments aPTT (test code = aPTT) 39.0 s 22.9-35.8 H [facility] CampusIfahkoxFIBAVOJGOF0875-19-88 04:28:00 Test Item Value Reference Range Interpretation Comments INR (test code = INR) 0.90 0.85-1.17 N [facility] CampusQedswbiMWZIPEWWJL7026-90-81 04:28:00 Test Item Value Reference Range Interpretation Comments MCH (test code = MCH) 29.4 pg 27.0-31.0 N [facility] CampusSaqaxgyZNMUCCDHHJ4953-09-71 04:28:00 Test Item Value Reference Range Interpretation Comments MCV (test code = MCV) 86.1 81.0-99.0 N [facility] CampusSnbtrekUEDUXYCXQB2339-31-91 04:28:00 Test Item Value Reference Range Interpretation Comments Hct (test code = Hct) 29.4 36.0-48.0 L [facility] CampusKulpeywDCKPPLLAZA9911-04-23 04:28:00 Test Item Value Reference Range Interpretation Comments RDW (test code = RDW) 14.0 11.5-14.5 N [facility] CampusIpgixvhARXEVEXORV2843-35-06 04:28:00 Test Item Value Reference Range Interpretation Comments WBC X 10x3 (test code = WBC X 10x3) 6.2 3.7-10.4 N [facility] CampusYqzsfydOZPEDMDZBG2312-03-61 04:28:00 Test Item Value Reference Range Interpretation Comments Platelet (test code = Platelet) 178 133-450 N [facility] CampusEwtgpmbJFYNHOFHZC1449-76-70 04:28:00 Test Item Value Reference Range Interpretation Comments MCHC (test code = MCHC) 34.1 32.0-36.0 N [facility] CampusPriiqntHIXLVXPKOV9824-70-60 04:28:00 Test Item Value Reference Range Interpretation Comments RBC X 10x6 (test code = RBC X 10x6) 3.41 4.20-5.40 L [facility] CampusRpduamlZMKHCYDWLP6062-38-33 04:28:00 Test Item Value Reference Range Interpretation Comments Hgb (test code = Hgb) 10.0 12.0-16.0 L [facility] CampusWqybiohSJVKKIUIXR8147-71-77 04:28:00 Test Item Value Reference Range Interpretation Comments MPV (test code = MPV) 10.1 7.4-10.4 N [facility] CampusFyydmiwXXLUWWRQVO5804-53-83 04:28:00 Test Item Value Reference Range Interpretation Comments Segs-Bands # (test code = Segs-Bands #) 4.4 1.5-8.1 N [facility] CampusXhellogUOFREZJATD6777-67-14 04:28:00 Test Item Value Reference Range Interpretation Comments Basophils (test code = 0.7 See_Comment N [Aut omated message] The Basophils) system which ge nerated this result tra nsmitted reference range : <=1.0. The reference r leo was not used to int erpret this result as normal/abnormal . [facility] CampusZzydrejWAIUCEMUSS8108-94-96 04:28:00 Test Item Value Reference Range Interpretation Comments Segs (test code = Segs) 70.7 45.0-75.0 N [facility] CampusRqyfugdRFNRQOHEAF8038-05-56 04:28:00 Test Item Value Reference Range Interpretation Comments Monocytes # (test code 0.3 See_Comment N [Aut omated message] The = Monocytes #) system which generated this result tra nsmitted reference range : <=0.8. The reference r leo was not used to int erpret this result as normal/abnormal . [facility] CampusMgcqumrISHRBJVOKA5463-87-61 04:28:00 Test Item Value Reference Range Interpretation Comments Lymphocytes # (test code = Lymphocytes 1.2 1.0-5.5 N #) [facility] CampusMavjfbvEOYEPOZPCQ6957-71-98 04:28:00 Test Item Value Reference Range Interpretation Comments Monocytes (test code = Monocytes) 4.5 2.0-12.0 N [facility] CampusAgfztwnYAJYELXDPZ8825-06-57 04:28:00 Test Item Value Reference Range Interpretation Comments Eosinophils (test code = 4.1 See_Comment H [A utomated message] The Eosinophils) system which ge nerated this result tra nsmitted reference range : <=4.0. The reference r leo was not used to int erpret this result as normal/abnormal . [facility] CampusSknrcrwCLEHEVXWFV0761-44-93 04:28:00 Test Item Value Reference Range Interpretation Comments Lymphocytes (test code = Lymphocytes) 20.0 20.0-40.0 N [facility] CampusKjzznpqHNXHHXXPDU7717-85-65 04:28:00 Test Item Value Reference Range Interpretation Comments Basophils # (test code 0.0 See_Comment N [Aut omated message] The = Basophils #) system which generated this result tra nsmitted reference range : <=0.2. The reference r leo was not used to int erpret this result as normal/abnormal . [facility] CampusSmhwezmGYVLEXLLDR2528-58-11 04:28:00 Test Item Value Reference Range Interpretation Comments Eosinophils # (test code 0.3 See_Comment N [A utomated message] The = Eosinophils #) system [employer] h generated this result tra nsmitted reference range : <=0.5. The reference r leo was not used to int erpret this result as normal/abnormal . [facility] GLUCOSE QVOUABF7558-65-26 01:12:00 Test Item Value Reference Range Interpretation Comments Gluc POC Lifscn (test code = Gluc POC 260 70-99 H Lifscn) [facility] GLUCOSE VBPDJUH6870-16-32 01:12:00 Test Item Value Reference Range Interpretation Comments Comment1 (test code = Comment1) Notify RN/ [facility] GLUCOSE KPTDCFM3457-82-31 01:12:00 Test Item Value Reference Range Interpretation Comments Gluc POC Lifscn (test code = Gluc POC 260 70-99 H Lifscn) [facility] GLUCOSE OZYIVFD2908-45-86 01:12:00 Test Item Value Reference Range Interpretation Comments Comment1 (test code = Comment1) Notify RN/ [facility] GLUCOSE YGJXPBK8831-12-37 01:12:00 Test Item Value Reference Range Interpretation Comments Gluc POC Lifscn (test code = Gluc POC 260 70-99 H Lifscn) [facility] GLUCOSE MSEPQDP1284-45-93 01:12:00 Test Item Value Reference Range Interpretation Comments Comment1 (test code = Comment1) Notify RN/ [facility] GLUCOSE RBXBRJG7802-36-24 01:12:00 Test Item Value Reference Range Interpretation Comments Gluc POC Lifscn (test code = Gluc POC 260 70-99 H Lifscn) [facility] GLUCOSE RHUOTJE3952-14-32 01:12:00 Test Item Value Reference Range Interpretation Comments Comment1 (test code = Comment1) Notify RN/ [facility] GLUCOSE QCJSBGY8127-35-28 01:12:00 Test Item Value Reference Range Interpretation Comments Gluc POC Lifscn (test code = Gluc POC 260 70-99 H Lifscn) [facility] GLUCOSE [id number] 01:12:00 Test Item Value Reference Range Interpretation Comments Comment1 (test code = Comment1) [facility]UcdqfzoFYSNQGHLRM3937-47-98 23:40:00 Test Item Value Reference Range Interpretation Comments UA Protein (test code = Trace A UA Protein) *ABN*(03/14/2012 18:40:00) [facility] StationEjeysrrJNCOEPMMDC0885-64-95 23:40:00 Test Item Value Reference Range Interpretation Comments UA pH (test code = UA pH) 6.0 1 5.0-8.0 N [facility] StationDhazmuaAJPSTGDZDR8016-88-69 23:40:00 Test Item Value Reference Range Interpretation Comments UA Ketones (test code = >=80 mg/dL UA Ketones) *NA*(03/14/2012 18:40:00) [facility] StationDrvzwfyYYGGTKKNHP0074-29-45 23:40:00 Test Item Value Reference Range Interpretation Comments UA Glucose (test code = >=1000 mg/dL A UA Glucose) *ABN*(03/14/2012 18:40:00) [facility] StationAesekkwLJWEOSXXSF6894-04-94 23:40:00 Test Item Value Reference Range Interpretation Comments UA Blood (test code = Negative (03/14/2012 N UA Blood) 18:40:00) [facility] StationJmpzbzbRCEIRMNXQI1763-45-48 23:40:00 Test Item Value Reference Range Interpretation Comments UA Nitrite (test code Negative (03/14/2012 N = UA Nitrite) 18:40:00) [facility] StationXyxcvseRTUZJQPIOI4762-97-37 23:40:00 Test Item Value Reference Range Interpretation Comments UA Urobilinogen (test code = UA 0.2 0.1-1.0 N Urobilinogen) [facility] StationMfzgqboQTZFVMSCBP5970-14-92 23:40:00 Test Item Value Reference Range Interpretation Comments UA Leuk Est (test Negative (03/14/2012 N code = UA Leuk Est) 18:40:00) [facility] StationGhemgbyJGKNRBUYYD2817-06-65 23:40:00 Test Item Value Reference Range Interpretation Comments UA Bili (test code = Negative *NA*(03/14/2012 UA Bili) 18:40:00) [facility] StationUbberttWDHDMUWPOA0909-66-69 23:40:00 Test Item Value Reference Range Interpretation Comments UA Turbidity (test code = Clear (03/14/2012 N UA Turbidity) 18:40:00) [facility] StationSniwlwkPNTQTJRYHD7951-39-42 23:40:00 Test Item Value Reference Range Interpretation Comments UA Color (test code = Yellow *NA*(03/14/2012 UA Color) 18:40:00) [facility] StationKscpwkjNVDBDMHEJZ0377-47-44 23:40:00 Test Item Value Reference Range Interpretation Comments UA Spec Grav (test >=1.030 A code = UA Spec Grav) *ABN*(03/14/2012 18:40:00) [facility] StationHqcsysaCMKXMNSGZR2110-67-70 23:40:00 Test Item Value Reference Range Interpretation Comments UA Sq Epi (test code Occasional /LPF N = UA Sq Epi) (03/14/2012 18:40:00) [facility] StationVhqzawvEZHBHXYOBD0030-04-26 23:40:00 Test Item Value Reference Range Interpretation Comments UA WBC (test code = UA 3-5 /HPF (03/14/2012 N WBC) 18:40:00) [facility] StationGnkayouIBKMBPCVQH2642-35-37 23:40:00 Test Item Value Reference Range Interpretation Comments UA Bacteria (test code Occasional /HPF N = UA Bacteria) (03/14/2012 18:40:00) [facility] StationWzyyjooUDWKEDSRZQ6210-98-68 23:40:00 Test Item Value Reference Range Interpretation Comments UA Protein (test code = Trace A UA Protein) *ABN*(03/14/2012 18:40:00) [facility] StationRmuigkpYIXRDILKJP9349-47-08 23:40:00 Test Item Value Reference Range Interpretation Comments UA pH (test code = UA pH) 6.0 1 5.0-8.0 N [facility]HwkvunuVIMCYJNZGO4238-12-00 23:40:00 Test Item Value Reference Range Interpretation Comments UA Ketones (test code = >=80 mg/dL UA Ketones) *NA*(03/14/2012 18:40:00) [facility] StationXdrytwmHTZUEKQTAE6111-04-13 23:40:00 Test Item Value Reference Range Interpretation Comments UA Glucose (test code = >=1000 mg/dL A UA Glucose) *ABN*(03/14/2012 18:40:00) [facility] StationLyeqniaCNMJLKLWJK4020-60-90 23:40:00 Test Item Value Reference Range Interpretation Comments UA Blood (test code = Negative (03/14/2012 N UA Blood) 18:40:00) [facility]PtaxtygVYPOMMTRCW2850-06-01 23:40:00 Test Item Value Reference Range Interpretation Comments UA Nitrite (test code Negative (03/14/2012 N = UA Nitrite) 18:40:00) [facility] WestZanlenkWKCJUXODLD0861-10-32 23:40:00 Test Item Value Reference Range Interpretation Comments UA Urobilinogen (test code = UA 0.2 0.1-1.0 N Urobilinogen) [facility] StationKnrnnoeUBROPCHAFF4480-88-81 23:40:00 Test Item Value Reference Range Interpretation Comments UA Leuk Est (test Negative (03/14/2012 N code = UA Leuk Est) 18:40:00) [facility] WestRduevsqLVWUEHRXID8445-52-08 23:40:00 Test Item Value Reference Range Interpretation Comments UA Bili (test code = Negative *NA*(03/14/2012 UA Bili) 18:40:00) [facility] StationYgaunyiTDAUOVSJXT2275-03-39 23:40:00 Test Item Value Reference Range Interpretation Comments UA Turbidity (test code = Clear (03/14/2012 N UA Turbidity) 18:40:00) [facility] StationOvlisaiDURWBBSMPX0769-68-75 23:40:00 Test Item Value Reference Range Interpretation Comments UA Color (test code = Yellow *NA*(03/14/2012 UA Color) 18:40:00) [facility] StationNtpvhitOJOMZOICNC7942-54-44 23:40:00 Test Item Value Reference Range Interpretation Comments UA Spec Grav (test >=1.030 A code = UA Spec Grav) *ABN*(03/14/2012 18:40:00) [facility] StationDnmzabxFRJAMIOJCY8480-01-08 23:40:00 Test Item Value Reference Range Interpretation Comments UA Sq Epi (test code Occasional /LPF N = UA Sq Epi) (03/14/2012 18:40:00) [facility] WestKjumfetQADQSCUOPX0241-05-59 23:40:00 Test Item Value Reference Range Interpretation Comments UA WBC (test code = UA 3-5 /HPF (03/14/2012 N WBC) 18:40:00) [facility] WestDtixjroHPRBVULZXF7262-92-88 23:40:00 Test Item Value Reference Range Interpretation Comments UA Bacteria (test code Occasional /HPF N = UA Bacteria) (03/14/2012 18:40:00) [facility] WestNkyduurEJRMOPEBQH2811-91-82 23:40:00 Test Item Value Reference Range Interpretation Comments UA Protein (test code = Trace A UA Protein) *ABN*(03/14/2012 18:40:00) [facility] StationAkgehimCHQGKDLYWS6359-22-24 23:40:00 Test Item Value Reference Range Interpretation Comments UA pH (test code = UA pH) 6.0 1 5.0-8.0 N [facility] WestPydiuogXYIVNRANFA7939-05-93 23:40:00 Test Item Value Reference Range Interpretation Comments UA Ketones (test code = >=80 mg/dL UA Ketones) *NA*(03/14/2012 18:40:00) [facility] StationWsaqccpKUEBKKOLTO4700-60-97 23:40:00 Test Item Value Reference Range Interpretation Comments UA Glucose (test code = >=1000 mg/dL A UA Glucose) *ABN*(03/14/2012 18:40:00) [facility] StationGhwfuveFTITPSYCRF0858-48-92 23:40:00 Test Item Value Reference Range Interpretation Comments UA Blood (test code = Negative (03/14/2012 N UA Blood) 18:40:00) [facility] WestAatsrlzGJLEFAQPOR9323-08-78 23:40:00 Test Item Value Reference Range Interpretation Comments UA Nitrite (test code Negative (03/14/2012 N = UA Nitrite) 18:40:00) [facility] StationBgegnwsBWNAMSYQRQ6374-12-39 23:40:00 Test Item Value Reference Range Interpretation Comments UA Urobilinogen (test code = UA 0.2 0.1-1.0 N Urobilinogen) [facility] StationNbzbcwkZIBPVASKEL4813-04-79 23:40:00 Test Item Value Reference Range Interpretation Comments UA Leuk Est (test Negative (03/14/2012 N code = UA Leuk Est) 18:40:00) [facility] WestHxhyixnZVAPLYCJGR7413-06-79 23:40:00 Test Item Value Reference Range Interpretation Comments UA Bili (test code = Negative *NA*(03/14/2012 UA Bili) 18:40:00) [facility] StationPnqcunrEGMGURKBMW9370-36-90 23:40:00 Test Item Value Reference Range Interpretation Comments UA Turbidity (test code = Clear (03/14/2012 N UA Turbidity) 18:40:00) [facility] StationJecdbdwQXVWFXRJRM6195-90-17 23:40:00 Test Item Value Reference Range Interpretation Comments UA Color (test code = Yellow *NA*(03/14/2012 UA Color) 18:40:00) [facility] StationPdgaopmQOSLCUKVRK6859-12-47 23:40:00 Test Item Value Reference Range Interpretation Comments UA Spec Grav (test >=1.030 A code = UA Spec Grav) *ABN*(03/14/2012 18:40:00) [facility] StationRkjtaqtTYBXOYERAR6141-67-37 23:40:00 Test Item Value Reference Range Interpretation Comments UA Sq Epi (test code Occasional /LPF N = UA Sq Epi) (03/14/2012 18:40:00) [facility] StationSkeplbpPBWQGGTMPZ4894-30-50 23:40:00 Test Item Value Reference Range Interpretation Comments UA WBC (test code = UA 3-5 /HPF (03/14/2012 N WBC) 18:40:00) [facility] StationPyqzdthGYIYCYYCJL3463-60-18 23:40:00 Test Item Value Reference Range Interpretation Comments UA Bacteria (test code Occasional /HPF N = UA Bacteria) (03/14/2012 18:40:00) [facility] StationLqzaguuCCREEEUIIP4883-71-67 23:40:00 Test Item Value Reference Range Interpretation Comments UA Protein (test code = Trace A UA Protein) *ABN*(03/14/2012 18:40:00) [facility] StationQiydqwuYTQKYKKPAX2391-50-87 23:40:00 Test Item Value Reference Range Interpretation Comments UA pH (test code = UA pH) 6.0 1 5.0-8.0 N [facility] StationTbnkvizKXXPDMPVRG2829-73-81 23:40:00 Test Item Value Reference Range Interpretation Comments UA Ketones (test code = >=80 mg/dL UA Ketones) *NA*(03/14/2012 18:40:00) [facility] StationVblemudUANVKHHQHU5900-67-42 23:40:00 Test Item Value Reference Range Interpretation Comments UA Glucose (test code = >=1000 mg/dL A UA Glucose) *ABN*(03/14/2012 18:40:00) [facility] StationUibrweaEVOLXLEBRX4085-62-47 23:40:00 Test Item Value Reference Range Interpretation Comments UA Blood (test code = Negative (03/14/2012 N UA Blood) 18:40:00) [facility] WestEdgdljkPHWOIGMSHZ2108-72-44 23:40:00 Test Item Value Reference Range Interpretation Comments UA Nitrite (test code Negative (03/14/2012 N = UA Nitrite) 18:40:00) [facility] StationOfwbpupBSOSWGVTLA4495-08-45 23:40:00 Test Item Value Reference Range Interpretation Comments UA Urobilinogen (test code = UA 0.2 0.1-1.0 N Urobilinogen) [facility] StationBtelauqVAZYKMPHGS1840-75-73 23:40:00 Test Item Value Reference Range Interpretation Comments UA Leuk Est (test Negative (03/14/2012 N code = UA Leuk Est) 18:40:00) [facility] StationBffsnamYRPVWKRFRV8301-48-52 23:40:00 Test Item Value Reference Range Interpretation Comments UA Bili (test code = Negative *NA*(03/14/2012 UA Bili) 18:40:00) [facility] StationRgjhiphKTUMVJPIHQ0681-26-60 23:40:00 Test Item Value Reference Range Interpretation Comments UA Turbidity (test code = Clear (03/14/2012 N UA Turbidity) 18:40:00) [facility] StationElebvqyPRVGSLLLBM9633-98-52 23:40:00 Test Item Value Reference Range Interpretation Comments UA Color (test code = Yellow *NA*(03/14/2012 UA Color) 18:40:00) [facility] StationCiagjbuWTPUITEMJM3850-71-30 23:40:00 Test Item Value Reference Range Interpretation Comments UA Spec Grav (test >=1.030 A code = UA Spec Grav) *ABN*(03/14/2012 18:40:00) [facility] [facility] [place]GsgcdwjIRYJULENFU5948-05-42 23:40:00 Test Item Value Reference Range Interpretation Comments UA Sq Epi (test code Occasional /LPF N = UA Sq Epi) (03/14/2012 18:40:00) [facility] StationElrclmmKVGATTVMRY4272-92-96 23:40:00 Test Item Value Reference Range Interpretation Comments UA WBC (test code = UA 3-5 /HPF (03/14/2012 N WBC) 18:40:00) [facility]PXT[facility]MVWZEH0538-88-61 23:40:00 Test Item Value Reference Range Interpretation Comments UA Bacteria (test code Occasional /HPF N = UA Bacteria) (03/14/2012 18:40:00) [facility] StationTkxujnlDVITZHRWCY5592-78-65 23:40:00 Test Item Value Reference Range Interpretation Comments UA Protein (test code = Trace A UA Protein) *ABN*(03/14/2012 18:40:00) [facility] StationPhwbwteRSTZSJHNAI6321-85-76 23:40:00 Test Item Value Reference Range Interpretation Comments UA pH (test code = UA pH) 6.0 1 5.0-8.0 N [facility] StationVptgwymROBIGFUYLC7222-01-50 23:40:00 Test Item Value Reference Range Interpretation Comments UA Ketones (test code = >=80 mg/dL UA Ketones) *NA*(03/14/2012 18:40:00) [facility] StationFmpyzqbSLANXDWSPS6598-31-00 23:40:00 Test Item Value Reference Range Interpretation Comments UA Glucose (test code = >=1000 mg/dL A UA Glucose) *ABN*(03/14/2012 18:40:00) [facility] StationFxflffhFBYCZYNBMA3608-52-58 23:40:00 Test Item Value Reference Range Interpretation Comments UA Blood (test code = Negative (03/14/2012 N UA Blood) 18:40:00) [facility] StationFeaplmhHAPVXCJPUG2305-93-77 23:40:00 Test Item Value Reference Range Interpretation Comments UA Nitrite (test code Negative (03/14/2012 N = UA Nitrite) 18:40:00) [facility] StationMwxqyuwNXRFLSEWXI3111-81-40 23:40:00 Test Item Value Reference Range Interpretation Comments UA Urobilinogen (test code = UA 0.2 0.1-1.0 N Urobilinogen) [facility] StationMgkrejmXLJRPENPBF6411-37-04 23:40:00 Test Item Value Reference Range Interpretation Comments UA Leuk Est (test Negative (03/14/2012 N code = UA Leuk Est) 18:40:00) [facility] StationUeimvuuFDFWXRVETD2019-24-35 23:40:00 Test Item Value Reference Range Interpretation Comments UA Bili (test code = Negative *NA*(03/14/2012 UA Bili) 18:40:00) [facility] StationKecmuhnWWERCPBEFW8125-02-53 23:40:00 Test Item Value Reference Range Interpretation Comments UA Turbidity (test code = Clear (03/14/2012 N UA Turbidity) 18:40:00) [facility] StationAqshkqsNFNPOBLIWQ7227-41-56 23:40:00 Test Item Value Reference Range Interpretation Comments UA Color (test code = Yellow *NA*(03/14/2012 UA Color) 18:40:00) [facility] StationMbrcmbtDYJVQYKOHY7744-49-20 23:40:00 Test Item Value Reference Range Interpretation Comments UA Spec Grav (test >=1.030 A code = UA Spec Grav) *ABN*(03/14/2012 18:40:00) [facility] StationExoouisSEZCBBOOMD9721-58-72 23:40:00 Test Item Value Reference Range Interpretation Comments UA Sq Epi (test code Occasional /LPF N = UA Sq Epi) (03/14/2012 18:40:00) [facility] StationOyppzcdNTDYJCXJTZ5253-41-39 23:40:00 Test Item Value Reference Range Interpretation Comments UA WBC (test code = UA 3-5 /HPF (03/14/2012 N WBC) 18:40:00) [facility] StationSrqapthVWQOWOSVSG6502-32-12 23:40:00 Test Item Value Reference Range Interpretation Comments UA Bacteria (test code Occasional /HPF N = UA Bacteria) (03/14/2012 18:40:00) [facility]SdvhchwWUGUPFKGH8999-78-56 22:50:00 Test Item Value Reference Range Interpretation Comments S Preg (test code = S Negative *NA*(03/14/2012 Preg) 17:50:00) [facility]manUhdteeaYLXDANVVZ1860-59-54 22:50:00 Test Item Value Reference Range Interpretation Comments Lipase Lvl (test code = Lipase Lvl) 45 73-393 L [facility]manNljdgzzIWMVWPTXF4648-48-95 22:50:00 Test Item Value Reference Range Interpretation Comments A/G Ratio (test code = A/G Ratio) 1.2 0.7-1.6 N [facility]manIltxslzJPBFDPEFO1633-93-23 22:50:00 Test Item Value Reference Range Interpretation Comments Globulin (test code = Globulin) 3.8 2.0-4.0 N [facility]manWibioijJJCLUTPLC8154-54-23 22:50:00 Test Item Value Reference Range Interpretation Comments B/C Ratio (test code = B/C Ratio) 21 6-25 N [facility]manMcgvkyyFBNEBOOLW9918-45-26 22:50:00 Test Item Value Reference Range Interpretation Comments AGAP (test code = AGAP) 16.8 10.0-20.0 N [facility]manUzwovsjTVLYDLITD1993-87-21 22:50:00 Test Item Value Reference Range Interpretation Comments Bili Total (test code = Bili Total) 1.1 0.2-1.3 N [facility]manUejeibcDBJBHUKLX8332-60-57 22:50:00 Test Item Value Reference Range Interpretation Comments Total Protein (test code = Total 8.2 6.4-8.4 N Protein) [facility]manRoreqdrSVXYXMFPY1962-17-32 22:50:00 Test Item Value Reference Range Interpretation Comments Potassium Lvl (test code = Potassium 3.8 3.5-5.1 N Lvl) [facility]manLzwztpoHVYQTXEWM8524-04-55 22:50:00 Test Item Value Reference Range Interpretation Comments Creatinine Lvl (test code = Creatinine 0.7 0.5-1.4 N Lvl) [facility]manTtvurtgVKPXWSIVH7956-56-19 22:50:00 Test Item Value Reference Range Interpretation Comments Sodium Lvl (test code = Sodium Lvl) 139 135-145 N [facility]manPovektfYHEFACXKT5049-68-34 22:50:00 Test Item Value Reference Range Interpretation Comments Chloride Lvl (test code = Chloride Lvl) 99 95-109 N [facility]manUxlhhtsWVIFIOLXS2297-73-71 22:50:00 Test Item Value Reference Range Interpretation Comments CO2 (test code = CO2) 27 24-32 N [facility]manOysecdpFKUYIDZMY1434-06-53 22:50:00 Test Item Value Reference Range Interpretation Comments Glucose Lvl (test code = Glucose Lvl) 301 70-99 H [facility]manEqlazizYTWOGEKXS3680-84-62 22:50:00 Test Item Value Reference Range Interpretation Comments BUN (test code = BUN) 15 7-22 N [facility]manAjmyzcnWWYCIPEQY7662-06-41 22:50:00 Test Item Value Reference Range Interpretation Comments ALT (test code = ALT) 24 See_Comment N [Auto mated message] The system which ge nerated this result transmit rohit reference range : <=65. The reference range was not used to interpr et this result as reji l/abnormal. [facility]manBncuszeGSJPHSCCQ1185-83-92 22:50:00 Test Item Value Reference Range Interpretation Comments AST (test code = AST) 20 See_Comment N [Auto mated message] The system which ge nerated this result transmit rohit reference range : <=37. The reference range was not used to interpr et this result as reji l/abnormal. [facility]manMuldqqxYFFKGDRZW1060-40-80 22:50:00 Test Item Value Reference Range Interpretation Comments Alk Phos (test code = Alk Phos) 67 39-136 N [facility]manWbvodkeVJFRUYMFB3954-47-96 22:50:00 Test Item Value Reference Range Interpretation Comments Albumin Lvl (test code = Albumin Lvl) 4.4 3.5-5.0 N [facility]manKpldisiNYWTVOREN3565-54-95 22:50:00 Test Item Value Reference Range Interpretation Comments Calcium Lvl (test code = Calcium Lvl) 9.9 8.5-10.5 N [facility]VskqwhuPPSSEFVSOX8116-92-73 22:50:00 Test Item Value Reference Range Interpretation Comments MPV (test code = MPV) 11.8 7.4-10.4 H [facility] CampusHhwznilSDBOPGDZWI3172-59-33 22:50:00 Test Item Value Reference Range Interpretation Comments MCHC (test code = MCHC) 35.9 32.0-36.0 N [facility] CampusPpclzhfALFTOWNBWQ5408-42-33 22:50:00 Test Item Value Reference Range Interpretation Comments MCH (test code = MCH) 31.2 pg 27.0-31.0 H [facility] CampusSopjxewTWMHEHOWTR9203-39-59 22:50:00 Test Item Value Reference Range Interpretation Comments Platelet (test code = Platelet) 189 133-450 N [facility] CampusEtpyrluTYOZXLAARB2443-79-81 22:50:00 Test Item Value Reference Range Interpretation Comments RDW (test code = RDW) 13.1 11.5-14.5 N [facility] CampusNghkhwgNDTSGDDZKZ5336-56-11 22:50:00 Test Item Value Reference Range Interpretation Comments Hct (test code = Hct) 40.7 36.0-48.0 N [facility] CampusYoyokzgIXQHVQPWPL2205-50-10 22:50:00 Test Item Value Reference Range Interpretation Comments Hgb (test code = Hgb) 14.6 12.0-16.0 N [facility] CampusEzabbndEMNTJMMIHM7860-18-37 22:50:00 Test Item Value Reference Range Interpretation Comments MCV (test code = MCV) 87.0 81.0-99.0 N [facility] CampusSfetjmfIWKKWARIOJ5409-91-07 22:50:00 Test Item Value Reference Range Interpretation Comments WBC (test code = WBC) 11.7 3.7-10.4 H [facility] CampusAxycbwwPMHWMLRVBD3107-29-16 22:50:00 Test Item Value Reference Range Interpretation Comments RBC (test code = RBC) 4.68 4.20-5.40 N [facility] CampusKqphxqnRCLNNYZJUV5123-64-71 22:50:00 Test Item Value Reference Range Interpretation Comments Basophils # (test code 0.0 See_Comment N [Aut omated message] The = Basophils #) system which generated this result tra nsmitted reference range : <=0.2. The reference r leo was not used to int erpret this result as normal/abnormal . [facility] CampusXchqtqpGWTDVOALXI9628-30-04 22:50:00 Test Item Value Reference Range Interpretation Comments Basophils (test code = 0.2 See_Comment N [Aut omated message] The Basophils) system which ge nerated this result tra nsmitted reference range : <=1.0. The reference r leo was not used to int erpret this result as normal/abnormal . [facility] CampusKgujghdBVDEUSGKYV0730-16-54 22:50:00 Test Item Value Reference Range Interpretation Comments Eosinophils # (test code 0.0 See_Comment N [A utomated message] The = Eosinophils #) system whic h generated this result tra nsmitted reference range : <=0.5. The reference r leo was not used to int erpret this result as normal/abnormal . [facility] CampusYyvuckbPSEBKJRVKG5325-56-47 22:50:00 Test Item Value Reference Range Interpretation Comments Monocytes # (test code 0.4 See_Comment N [Aut omated message] The = Monocytes #) system which generated this result tra nsmitted reference range : <=0.8. The reference r leo was not used to int erpret this result as normal/abnormal . [facility] CampusEekviycVLVHZGZSHX4349-19-83 22:50:00 Test Item Value Reference Range Interpretation Comments Segs-Bands # (test code = Segs-Bands #) 10.6 1.5-8.1 H [facility] CampusPiihsgeEJPFIWHOMZ6177-77-32 22:50:00 Test Item Value Reference Range Interpretation Comments Lymphocytes # (test code = Lymphocytes 0.7 1.0-5.5 L #) [facility] CampusLcsbqqaDOWYWXSUWL6721-59-85 22:50:00 Test Item Value Reference Range Interpretation Comments Monocytes (test code = Monocytes) 3.4 2.0-12.0 N [facility] CampusXxrxsshPJMWUXBDKC3870-72-04 22:50:00 Test Item Value Reference Range Interpretation Comments Plt Morph (test code = Normal (03/14/2012 N Plt Morph) 17:50:00) [facility] CampusRecmqdmZVQVVZGFNM5923-72-03 22:50:00 Test Item Value Reference Range Interpretation Comments Lymphocytes (test code = Lymphocytes) 6.0 20.0-40.0 L [facility] CampusJfjaciqXGTFAOGCCB2389-14-91 22:50:00 Test Item Value Reference Range Interpretation Comments Eosinophils (test code = 0.0 See_Comment N [A utomated message] The Eosinophils) system which ge nerated this result tra nsmitted reference range : <=4.0. The reference r leo was not used to int erpret this result as normal/abnormal . [facility] CampusMwcxaagWRYOIWIRBV0582-04-82 22:50:00 Test Item Value Reference Range Interpretation Comments Segs (test code = Segs) 90.4 45.0-75.0 H [facility] CampusUvsyticHCVRUNNRTQ4681-91-96 22:50:00 Test Item Value Reference Range Interpretation Comments RBC Morph (test code = Normal (03/14/2012 N RBC Morph) 17:50:00) [facility]manEbitzwnIPLBXILRF7319-72-82 22:50:00 Test Item Value Reference Range Interpretation Comments S Preg (test code = S Negative *NA*(03/14/2012 Preg) 17:50:00) [facility]manAffmrbmHYDFDVHYA6669-22-42 22:50:00 Test Item Value Reference Range Interpretation Comments Lipase Lvl (test code = Lipase Lvl) 45 73-393 L [facility]manZovwfogPOLDONPRP3886-09-73 22:50:00 Test Item Value Reference Range Interpretation Comments A/G Ratio (test code = A/G Ratio) 1.2 0.7-1.6 N [facility]manJualbcjZHNGLVEGL2148-94-38 22:50:00 Test Item Value Reference Range Interpretation Comments Globulin (test code = Globulin) 3.8 2.0-4.0 N [facility]manCavsltmPQRLLBHBP5383-07-29 22:50:00 Test Item Value Reference Range Interpretation Comments B/C Ratio (test code = B/C Ratio) 21 6-25 N [facility]manNbgiscdEGNQGXASS2855-75-22 22:50:00 Test Item Value Reference Range Interpretation Comments AGAP (test code = AGAP) 16.8 10.0-20.0 N [facility]manUuzqyswENDZTOHXF8310-02-71 22:50:00 Test Item Value Reference Range Interpretation Comments Bili Total (test code = Bili Total) 1.1 0.2-1.3 N [facility]manRzynqlgZBXUFCBOD4864-97-37 22:50:00 Test Item Value Reference Range Interpretation Comments Total Protein (test code = Total 8.2 6.4-8.4 N Protein) [facility]manImqudghNPAFPTFLE4340-39-55 22:50:00 Test Item Value Reference Range Interpretation Comments Potassium Lvl (test code = Potassium 3.8 3.5-5.1 N Lvl) [facility]manEqmefvnXYUFMKRJF4029-77-81 22:50:00 Test Item Value Reference Range Interpretation Comments Creatinine Lvl (test code = Creatinine 0.7 0.5-1.4 N Lvl) [facility]manKnwowbjFXUTGRQFN5681-79-66 22:50:00 Test Item Value Reference Range Interpretation Comments Sodium Lvl (test code = Sodium Lvl) 139 135-145 N [facility]manYsbruerOUBLKKYRJ7492-33-75 22:50:00 Test Item Value Reference Range Interpretation Comments Chloride Lvl (test code = Chloride Lvl) 99 95-109 N [facility]manTitfigbDFONZJPIW5999-59-69 22:50:00 Test Item Value Reference Range Interpretation Comments CO2 (test code = CO2) 27 24-32 N [facility]manUaknbasSIIFVMHQX7137-78-37 22:50:00 Test Item Value Reference Range Interpretation Comments Glucose Lvl (test code = Glucose Lvl) 301 70-99 H [facility]manHtusjhtMUTUPUGVI5604-62-61 22:50:00 Test Item Value Reference Range Interpretation Comments BUN (test code = BUN) 15 7-22 N [facility]manLlcqwlxHHEJTHESY8421-58-22 22:50:00 Test Item Value Reference Range Interpretation Comments ALT (test code = ALT) 24 See_Comment N [Auto mated message] The system which ge nerated this result transmit rohit reference range : <=65. The reference range was not used to interpr et this result as reji l/abnormal. [facility]manIehkbumDPYKAZNUS8600-01-60 22:50:00 Test Item Value Reference Range Interpretation Comments AST (test code = AST) 20 See_Comment N [Auto mated message] The system which ge nerated this result transmit rohit reference range : <=37. The reference range was not used to interpr et this result as reji l/abnormal. [facility]manApklknqTULLSSJXV7625-75-28 22:50:00 Test Item Value Reference Range Interpretation Comments Alk Phos (test code = Alk Phos) 67 39-136 N [facility]manYdzmsafWVENLRMOR9456-15-94 22:50:00 Test Item Value Reference Range Interpretation Comments Albumin Lvl (test code = Albumin Lvl) 4.4 3.5-5.0 N [facility]manWslbxhcFLPWWJPSY5932-83-29 22:50:00 Test Item Value Reference Range Interpretation Comments Calcium Lvl (test code = Calcium Lvl) 9.9 8.5-10.5 N [facility] CampusUtvdwmlQKLERYMVNO0698-43-37 22:50:00 Test Item Value Reference Range Interpretation Comments MPV (test code = MPV) 11.8 7.4-10.4 H [facility] CampusIdsctkaWGRTXTCJXE2377-99-44 22:50:00 Test Item Value Reference Range Interpretation Comments MCHC (test code = MCHC) 35.9 32.0-36.0 N [facility] CampusRvfsbjoEJHHTUEJHB0706-49-01 22:50:00 Test Item Value Reference Range Interpretation Comments MCH (test code = MCH) 31.2 pg 27.0-31.0 H [facility] CampusKgvtelcEPYTRDEBKZ4820-33-52 22:50:00 Test Item Value Reference Range Interpretation Comments Platelet (test code = Platelet) 189 133-450 N [facility] CampusJghtnftAYGONBJMCO0398-58-36 22:50:00 Test Item Value Reference Range Interpretation Comments RDW (test code = RDW) 13.1 11.5-14.5 N [facility] CampusAkxndniVIDJBABBLW8169-36-28 22:50:00 Test Item Value Reference Range Interpretation Comments Hct (test code = Hct) 40.7 36.0-48.0 N [facility] CampusMyrjcaxQRYIYYEAOU5697-72-24 22:50:00 Test Item Value Reference Range Interpretation Comments Hgb (test code = Hgb) 14.6 12.0-16.0 N [facility] CampusRtabzueKNVKIYLZFN9556-79-79 22:50:00 Test Item Value Reference Range Interpretation Comments MCV (test code = MCV) 87.0 81.0-99.0 N [facility] CampusEkeqrurGAGTYGTJBX6429-52-29 22:50:00 Test Item Value Reference Range Interpretation Comments WBC (test code = WBC) 11.7 3.7-10.4 H [facility] CampusQqlmksnWSXBIYCAQQ1626-27-70 22:50:00 Test Item Value Reference Range Interpretation Comments RBC (test code = RBC) 4.68 4.20-5.40 N [facility] CampusQfphvnwNLHIZELIKZ9704-50-40 22:50:00 Test Item Value Reference Range Interpretation Comments Basophils # (test code 0.0 See_Comment N [Aut omated message] The = Basophils #) system which generated this result tra nsmitted reference range : <=0.2. The reference r leo was not used to int erpret this result as normal/abnormal . [facility] CampusBklmfptGGNYVZLAVU7119-21-85 22:50:00 Test Item Value Reference Range Interpretation Comments Basophils (test code = 0.2 See_Comment N [Aut omated message] The Basophils) system which ge nerated this result tra nsmitted reference range : <=1.0. The reference r leo was not used to int erpret this result as normal/abnormal . [facility] CampusSosgyzxRZCSQBNYIQ5285-07-69 22:50:00 Test Item Value Reference Range Interpretation Comments Eosinophils # (test code 0.0 See_Comment N [A utomated message] The = Eosinophils #) system whic h generated this result tra nsmitted reference range : <=0.5. The reference r leo was not used to int erpret this result as normal/abnormal . [facility] CampusFzlxvpyLSASNJSGLM6631-81-02 22:50:00 Test Item Value Reference Range Interpretation Comments Monocytes # (test code 0.4 See_Comment N [Aut omated message] The = Monocytes #) system which generated this result tra nsmitted reference range : <=0.8. The reference r leo was not used to int erpret this result as normal/abnormal . [facility] CampusZisczmlNLFUFRFTEZ3457-81-89 22:50:00 Test Item Value Reference Range Interpretation Comments Segs-Bands # (test code = Segs-Bands #) 10.6 1.5-8.1 H [facility] CampusBhcgbeuXZQFSLZNXH5671-96-39 22:50:00 Test Item Value Reference Range Interpretation Comments Lymphocytes # (test code = Lymphocytes 0.7 1.0-5.5 L #) [facility] CampusVnbreoyKEKEVSHUKI2376-88-19 22:50:00 Test Item Value Reference Range Interpretation Comments Monocytes (test code = Monocytes) 3.4 2.0-12.0 N [facility] CampusLacfwugNLUAVDTEHR1660-91-46 22:50:00 Test Item Value Reference Range Interpretation Comments Plt Morph (test code = Normal (03/14/2012 N Plt Morph) 17:50:00) [facility] CampusYcwtljzTNHDSFMBEX6991-05-41 22:50:00 Test Item Value Reference Range Interpretation Comments Lymphocytes (test code = Lymphocytes) 6.0 20.0-40.0 L [facility] CampusOvkiwnhVVYOPTMNXP6584-32-28 22:50:00 Test Item Value Reference Range Interpretation Comments Eosinophils (test code = 0.0 See_Comment N [A utomated message] The Eosinophils) system which ge nerated this result tra nsmitted reference range : <=4.0. The reference r leo was not used to int erpret this result as normal/abnormal . [facility] CampusVxuzhopEREGQSHQEB6280-14-64 22:50:00 Test Item Value Reference Range Interpretation Comments Segs (test code = Segs) 90.4 45.0-75.0 H [facility] CampusLhbmqtfAQZTYYYEWA4987-00-93 22:50:00 Test Item Value Reference Range Interpretation Comments RBC Morph (test code = Normal (03/14/2012 N RBC Morph) 17:50:00) [facility]manFuvptqlSJLDCIZDU1957-37-43 22:50:00 Test Item Value Reference Range Interpretation Comments S Preg (test code = S Negative *NA*(03/14/2012 Preg) 17:50:00) [facility]manVcxchcuFWORRASHK6514-40-90 22:50:00 Test Item Value Reference Range Interpretation Comments Lipase Lvl (test code = Lipase Lvl) 45 73-393 L [facility]OvhhupdPDWXKBUQI6090-10-23 22:50:00 Test Item Value Reference Range Interpretation Comments A/G Ratio (test code = A/G Ratio) 1.2 0.7-1.6 N [facility]manAwnwundNJPYOCSTI4380-48-29 22:50:00 Test Item Value Reference Range Interpretation Comments Globulin (test code = Globulin) 3.8 2.0-4.0 N [facility]manPynuixpYGEIURBXO6690-82-14 22:50:00 Test Item Value Reference Range Interpretation Comments B/C Ratio (test code = B/C Ratio) 21 6-25 N [facility]manFltzummYKAOCSFSQ2957-85-29 22:50:00 Test Item Value Reference Range Interpretation Comments AGAP (test code = AGAP) 16.8 10.0-20.0 N [facility]manXdviyvxYFUOVORAT7539-42-40 22:50:00 Test Item Value Reference Range Interpretation Comments Bili Total (test code = Bili Total) 1.1 0.2-1.3 N [facility]manMcseyrfXCDIWOGRX7927-10-29 22:50:00 Test Item Value Reference Range Interpretation Comments Total Protein (test code = Total 8.2 6.4-8.4 N Protein) [facility]manJmzddbfXKOWBRXYN4109-70-33 22:50:00 Test Item Value Reference Range Interpretation Comments Potassium Lvl (test code = Potassium 3.8 3.5-5.1 N Lvl) [facility]manRxzygrbWOSOFOQIG5881-75-61 22:50:00 Test Item Value Reference Range Interpretation Comments Creatinine Lvl (test code = Creatinine 0.7 0.5-1.4 N Lvl) [facility]manNkqbogcCSPNWEOVO6892-76-05 22:50:00 Test Item Value Reference Range Interpretation Comments Sodium Lvl (test code = Sodium Lvl) 139 135-145 N [facility]manFexsakoUEWWSFVBC6503-20-58 22:50:00 Test Item Value Reference Range Interpretation Comments Chloride Lvl (test code = Chloride Lvl) 99 95-109 N [facility]manVdtdcbaZMNSLWVRJ7667-12-10 22:50:00 Test Item Value Reference Range Interpretation Comments CO2 (test code = CO2) 27 24-32 N [facility]manEjgiymvDDNSAOEYV6705-27-80 22:50:00 Test Item Value Reference Range Interpretation Comments Glucose Lvl (test code = Glucose Lvl) 301 70-99 H [facility]manHoacefsCWNFGKTJO1302-09-59 22:50:00 Test Item Value Reference Range Interpretation Comments BUN (test code = BUN) 15 7-22 N [facility]manTebhsnmYZXVHWJKX4631-59-77 22:50:00 Test Item Value Reference Range Interpretation Comments ALT (test code = ALT) 24 See_Comment N [Auto mated message] The system which ge nerated this result transmit rohit reference range : <=65. The reference range was not used to interpr et this result as reji l/abnormal. [facility]manCjodldjVCWTEWXOS2238-36-87 22:50:00 Test Item Value Reference Range Interpretation Comments AST (test code = AST) 20 See_Comment N [Auto mated message] The system which ge nerated this result transmit rohit reference range : <=37. The reference range was not used to interpr et this result as reji l/abnormal. [facility]AcjwqenPDBKCBORD2441-94-41 22:50:00 Test Item Value Reference Range Interpretation Comments Alk Phos (test code = Alk Phos) 67 39-136 N [facility] HospitalXrvzzduDPMBEUVSR2526-16-01 22:50:00 Test Item Value Reference Range Interpretation Comments Albumin Lvl (test code = Albumin Lvl) 4.4 3.5-5.0 N [facility] HospitalVumhowuTYGQXJXSR1085-23-70 22:50:00 Test Item Value Reference Range Interpretation Comments Calcium Lvl (test code = Calcium Lvl) 9.9 8.5-10.5 N [facility] HospitalTxiluceYNZWPFKGCA7087-64-86 22:50:00 Test Item Value Reference Range Interpretation Comments MPV (test code = MPV) 11.8 7.4-10.4 H [facility] HospitalDqxmjbeYQYTAKPLAL3981-76-14 22:50:00 Test Item Value Reference Range Interpretation Comments MCHC (test code = MCHC) 35.9 32.0-36.0 N [facility] HospitalWpsuqrsOXMHTJYJCP0569-09-16 22:50:00 Test Item Value Reference Range Interpretation Comments MCH (test code = MCH) 31.2 pg 27.0-31.0 H [facility] HospitalEjgokkgLGHCPBRVDG1413-58-19 22:50:00 Test Item Value Reference Range Interpretation Comments Platelet (test code = Platelet) 189 133-450 N [facility] HospitalDslnkjqRAVREEMCOE4418-89-89 22:50:00 Test Item Value Reference Range Interpretation Comments RDW (test code = RDW) 13.1 11.5-14.5 N [facility] HospitalCeeqvwwTDEKLWZAZM6110-86-90 22:50:00 Test Item Value Reference Range Interpretation Comments Hct (test code = Hct) 40.7 36.0-48.0 N [facility] CampusTxtekwzDEDJDVFXHA9831-47-31 22:50:00 Test Item Value Reference Range Interpretation Comments Hgb (test code = Hgb) 14.6 12.0-16.0 N [facility] CampusHoacvdkQUMMMWOERE9334-86-76 22:50:00 Test Item Value Reference Range Interpretation Comments MCV (test code = MCV) 87.0 81.0-99.0 N [facility] CampusDsynqdiCWAQETAXHX8701-10-13 22:50:00 Test Item Value Reference Range Interpretation Comments WBC (test code = WBC) 11.7 3.7-10.4 H [facility] CampusRyinucgZUCFXLADIM0811-81-41 22:50:00 Test Item Value Reference Range Interpretation Comments RBC (test code = RBC) 4.68 4.20-5.40 N [facility] CampusQfqcnimULPRVZTYLZ5727-15-64 22:50:00 Test Item Value Reference Range Interpretation Comments Basophils # (test code 0.0 See_Comment N [Aut omated message] The = Basophils #) system which generated this result tra nsmitted reference range : <=0.2. The reference r leo was not used to int erpret this result as normal/abnormal . [facility] CampusSokngctVKUUZULWEH3171-88-82 22:50:00 Test Item Value Reference Range Interpretation Comments Basophils (test code = 0.2 See_Comment N [Aut omated message] The Basophils) system which ge nerated this result tra nsmitted reference range : <=1.0. The reference r leo was not used to int erpret this result as normal/abnormal . [facility] CampusNkmqioaKRPMMDZQDQ4870-30-53 22:50:00 Test Item Value Reference Range Interpretation Comments Eosinophils # (test code 0.0 See_Comment N [A utomated message] The = Eosinophils #) system whic h generated this result tra nsmitted reference range : <=0.5. The reference r leo was not used to int erpret this result as normal/abnormal . [facility] CampusCnzobudWNLIJPZDLW6383-91-32 22:50:00 Test Item Value Reference Range Interpretation Comments Monocytes # (test code 0.4 See_Comment N [Aut omated message] The = Monocytes #) system which generated this result tra nsmitted reference range : <=0.8. The reference r leo was not used to int erpret this result as normal/abnormal . [facility] CampusBfjtsbvIOKRYMSPRG1743-52-44 22:50:00 Test Item Value Reference Range Interpretation Comments Segs-Bands # (test code = Segs-Bands #) 10.6 1.5-8.1 H [facility] CampusHnejettRZRDMIUILZ1470-51-85 22:50:00 Test Item Value Reference Range Interpretation Comments Lymphocytes # (test code = Lymphocytes 0.7 1.0-5.5 L #) [facility] CampusUanznrnPGLTRISLFE8715-02-61 22:50:00 Test Item Value Reference Range Interpretation Comments Monocytes (test code = Monocytes) 3.4 2.0-12.0 N [facility] CampusHevpkexFUSSBAQDXB7100-92-56 22:50:00 Test Item Value Reference Range Interpretation Comments Plt Morph (test code = Normal (03/14/2012 N Plt Morph) 17:50:00) [facility] CampusDkakplfZAORIGMSAE9474-15-15 22:50:00 Test Item Value Reference Range Interpretation Comments Lymphocytes (test code = Lymphocytes) 6.0 20.0-40.0 L [facility] CampusJdqnfgmPBFNPEXHVC3200-19-01 22:50:00 Test Item Value Reference Range Interpretation Comments Eosinophils (test code = 0.0 See_Comment N [A utomated message] The Eosinophils) system which ge nerated this result tra nsmitted reference range : <=4.0. The reference r leo was not used to int erpret this result as normal/abnormal . [facility] CampusBnkzbetSHUNXXNFKZ0301-13-18 22:50:00 Test Item Value Reference Range Interpretation Comments Segs (test code = Segs) 90.4 45.0-75.0 H [facility] CampusXzakeduHWOORQNEYF0408-89-13 22:50:00 Test Item Value Reference Range Interpretation Comments RBC Morph (test code = Normal (03/14/2012 N RBC Morph) 17:50:00) [facility]xvvcekTJQSVSFNY9388-69-46 22:50:00 Test Item Value Reference Range Interpretation Comments S Preg (test code = S Negative *NA*(03/14/2012 Preg) 17:50:00) [facility]manDwzyqkrZYPOXUVGG8322-96-45 22:50:00 Test Item Value Reference Range Interpretation Comments Lipase Lvl (test code = Lipase Lvl) 45 73-393 L [facility]manQednlmnAMFJKNLAY4381-92-94 22:50:00 Test Item Value Reference Range Interpretation Comments A/G Ratio (test code = A/G Ratio) 1.2 0.7-1.6 N [facility]manFgniwwtXTGNQLNZY1938-30-66 22:50:00 Test Item Value Reference Range Interpretation Comments Globulin (test code = Globulin) 3.8 2.0-4.0 N [facility]manXvbynxqBGJANLCSY6149-10-69 22:50:00 Test Item Value Reference Range Interpretation Comments B/C Ratio (test code = B/C Ratio) 21 6-25 N [facility]manVdwojvjCUQJSZUMS3338-87-46 22:50:00 Test Item Value Reference Range Interpretation Comments AGAP (test code = AGAP) 16.8 10.0-20.0 N [facility]manAtmmmxzRSEUOATFL9964-64-68 22:50:00 Test Item Value Reference Range Interpretation Comments Bili Total (test code = Bili Total) 1.1 0.2-1.3 N [facility]manDtklmbhQZTIYMHBO5460-90-89 22:50:00 Test Item Value Reference Range Interpretation Comments Total Protein (test code = Total 8.2 6.4-8.4 N Protein) [facility]manBtetxefGRQNPIVZW3324-17-72 22:50:00 Test Item Value Reference Range Interpretation Comments Potassium Lvl (test code = Potassium 3.8 3.5-5.1 N Lvl) [facility]manRwfssyhSYMGMYAEQ7953-20-36 22:50:00 Test Item Value Reference Range Interpretation Comments Creatinine Lvl (test code = Creatinine 0.7 0.5-1.4 N Lvl) [facility]manObtmkwmNXQHOPHRW8200-21-33 22:50:00 Test Item Value Reference Range Interpretation Comments Sodium Lvl (test code = Sodium Lvl) 139 135-145 N [facility]manZaqsqclYCDCEIJSG7572-90-64 22:50:00 Test Item Value Reference Range Interpretation Comments Chloride Lvl (test code = Chloride Lvl) 99 95-109 N [facility]manPpmygjpVLTGQCQXI2936-53-10 22:50:00 Test Item Value Reference Range Interpretation Comments CO2 (test code = CO2) 27 24-32 N [facility]manUvslbctHNGPMAHQK8693-58-62 22:50:00 Test Item Value Reference Range Interpretation Comments Glucose Lvl (test code = Glucose Lvl) 301 70-99 H [facility]manWgucnfbEIUZRVBXF1942-24-19 22:50:00 Test Item Value Reference Range Interpretation Comments BUN (test code = BUN) 15 7-22 N [facility] HospitalYorwknlPSPTUGMVF8858-36-63 22:50:00 Test Item Value Reference Range Interpretation Comments ALT (test code = ALT) 24 See_Comment N [Auto mated message] The system which ge nerated this result transmit rohit reference range : <=65. The reference range was not used to interpr et this result as reji l/abnormal. [facility]manIdrvcunTUHWQBBGY9014-36-63 22:50:00 Test Item Value Reference Range Interpretation Comments AST (test code = AST) 20 See_Comment N [Auto mated message] The system which ge nerated this result transmit rohit reference range : <=37. The reference range was not used to interpr et this result as reji l/abnormal. [facility] HospitalScyrtrfPGOQHMEKI3670-47-66 22:50:00 Test Item Value Reference Range Interpretation Comments Alk Phos (test code = Alk Phos) 67 39-136 N [facility] HospitalNmgxtmgFSYRDBVQK9655-78-69 22:50:00 Test Item Value Reference Range Interpretation Comments Albumin Lvl (test code = Albumin Lvl) 4.4 3.5-5.0 N [facility]manOcchymqVNTGLUKXY8902-41-58 22:50:00 Test Item Value Reference Range Interpretation Comments Calcium Lvl (test code = Calcium Lvl) 9.9 8.5-10.5 N [facility] CampusIzhgewbGWYNFOEPHM7034-66-99 22:50:00 Test Item Value Reference Range Interpretation Comments MPV (test code = MPV) 11.8 7.4-10.4 H [facility] CampusJtijhcgNLTQYEZQGL3381-92-28 22:50:00 Test Item Value Reference Range Interpretation Comments MCHC (test code = MCHC) 35.9 32.0-36.0 N [facility] HospitalNauayqrMMNMSNRCHM9095-20-87 22:50:00 Test Item Value Reference Range Interpretation Comments MCH (test code = MCH) 31.2 pg 27.0-31.0 H [facility] CampusTgvtqasCEKRMJOXEZ1093-34-79 22:50:00 Test Item Value Reference Range Interpretation Comments Platelet (test code = Platelet) 189 133-450 N [facility] CampusVneahjcGEDEDZERDK5104-85-09 22:50:00 Test Item Value Reference Range Interpretation Comments RDW (test code = RDW) 13.1 11.5-14.5 N [facility] CampusWpherquUUUORZURGE6564-61-34 22:50:00 Test Item Value Reference Range Interpretation Comments Hct (test code = Hct) 40.7 36.0-48.0 N [facility] CampusQirlyioYXMBODFSRL1584-13-17 22:50:00 Test Item Value Reference Range Interpretation Comments Hgb (test code = Hgb) 14.6 12.0-16.0 N [facility] CampusUargrzpTZJWTSSPGO4570-67-97 22:50:00 Test Item Value Reference Range Interpretation Comments MCV (test code = MCV) 87.0 81.0-99.0 N [facility] CampusDtpqrpaJQBOHCXXST5430-26-84 22:50:00 Test Item Value Reference Range Interpretation Comments WBC (test code = WBC) 11.7 3.7-10.4 H [facility] CampusCwsyojfUSXVXVDIXE1863-12-58 22:50:00 Test Item Value Reference Range Interpretation Comments RBC (test code = RBC) 4.68 4.20-5.40 N [facility] CampusCqlwzycDINLSAZXBQ9806-19-21 22:50:00 Test Item Value Reference Range Interpretation Comments Basophils # (test code 0.0 See_Comment N [Aut omated message] The = Basophils #) system which generated this result tra nsmitted reference range : <=0.2. The reference r leo was not used to int erpret this result as normal/abnormal . [facility] CampusUksreizTNKEJZKIPW8629-39-92 22:50:00 Test Item Value Reference Range Interpretation Comments Basophils (test code = 0.2 See_Comment N [Aut omated message] The Basophils) system which ge nerated this result tra nsmitted reference range : <=1.0. The reference r leo was not used to int erpret this result as normal/abnormal . [facility] CampusRgeveolCRTRBJBFJP9893-51-88 22:50:00 Test Item Value Reference Range Interpretation Comments Eosinophils # (test code 0.0 See_Comment N [A utomated message] The = Eosinophils #) system [facility] h generated this result tra nsmitted reference range : <=0.5. The reference r leo was not used to int erpret this result as normal/abnormal . [facility] CampusQpyrgwcYPWCKOEUUH3804-21-23 22:50:00 Test Item Value Reference Range Interpretation Comments Monocytes # (test code 0.4 See_Comment N [Aut omated message] The = Monocytes #) system which generated this result tra nsmitted reference range : <=0.8. The reference r leo was not used to int erpret this result as normal/abnormal . [facility] CampusYxhjeluQTYFVUFSWR7315-34-09 22:50:00 Test Item Value Reference Range Interpretation Comments Segs-Bands # (test code = Segs-Bands #) 10.6 1.5-8.1 H [facility] CampusMducycdDUTYPZDRNR6378-48-08 22:50:00 Test Item Value Reference Range Interpretation Comments Lymphocytes # (test code = Lymphocytes 0.7 1.0-5.5 L #) [facility] CampusNxgkgnrEUAXEKFSBC5955-84-29 22:50:00 Test Item Value Reference Range Interpretation Comments Monocytes (test code = Monocytes) 3.4 2.0-12.0 N [facility] CampusTiaexveRIKDDISPIQ9272-87-47 22:50:00 Test Item Value Reference Range Interpretation Comments Plt Morph (test code = Normal (03/14/2012 N Plt Morph) 17:50:00) [facility] CampusKgjcwvsGENNFIFFLW6384-98-90 22:50:00 Test Item Value Reference Range Interpretation Comments Lymphocytes (test code = Lymphocytes) 6.0 20.0-40.0 L [facility] CampusLnykkzeGLWTZQRIGH8860-38-70 22:50:00 Test Item Value Reference Range Interpretation Comments Eosinophils (test code = 0.0 See_Comment N [A utomated message] The Eosinophils) system which ge nerated this result tra nsmitted reference range : <=4.0. The reference r leo was not used to int erpret this result as normal/abnormal . [facility] CampusKgfkvdiPABHGLHJEM2792-94-37 22:50:00 Test Item Value Reference Range Interpretation Comments Segs (test code = Segs) 90.4 45.0-75.0 H [facility] CampusBpztxteMIJDCSSEHU4478-33-07 22:50:00 Test Item Value Reference Range Interpretation Comments RBC Morph (test code = Normal (03/14/2012 N RBC Morph) 17:50:00) [facility]manAaubroxHHRRRGDDB3349-34-95 22:50:00 Test Item Value Reference Range Interpretation Comments S Preg (test code = S Negative *NA*(03/14/2012 Preg) 17:50:00) [facility]manLaagucdLEQFRRBSV5782-26-67 22:50:00 Test Item Value Reference Range Interpretation Comments Lipase Lvl (test code = Lipase Lvl) 45 73-393 L [facility]manBkcitfcYKHYBPPYC0573-15-35 22:50:00 Test Item Value Reference Range Interpretation Comments A/G Ratio (test code = A/G Ratio) 1.2 0.7-1.6 N [facility]manPktvfktRGEAQYOJD2880-14-52 22:50:00 Test Item Value Reference Range Interpretation Comments Globulin (test code = Globulin) 3.8 2.0-4.0 N [facility]manJwrzpqqFXEUWWZJY6001-67-28 22:50:00 Test Item Value Reference Range Interpretation Comments B/C Ratio (test code = B/C Ratio) 21 6-25 N [facility]manBzqgymhUTQNIHNEW2274-87-98 22:50:00 Test Item Value Reference Range Interpretation Comments AGAP (test code = AGAP) 16.8 10.0-20.0 N [facility]manVwqzikgNNVVHZQZM0639-16-25 22:50:00 Test Item Value Reference Range Interpretation Comments Bili Total (test code = Bili Total) 1.1 0.2-1.3 N [facility]manOtstbrjSRMKXBGNE9525-40-81 22:50:00 Test Item Value Reference Range Interpretation Comments Total Protein (test code = Total 8.2 6.4-8.4 N Protein) [facility]manQdbezoqTQCBMDUEP5017-78-48 22:50:00 Test Item Value Reference Range Interpretation Comments Potassium Lvl (test code = Potassium 3.8 3.5-5.1 N Lvl) [facility]manEtxnlzyEYTCGVWDB3869-96-80 22:50:00 Test Item Value Reference Range Interpretation Comments Creatinine Lvl (test code = Creatinine 0.7 0.5-1.4 N Lvl) [facility]manIzqtycuJPSKSORUW6570-77-61 22:50:00 Test Item Value Reference Range Interpretation Comments Sodium Lvl (test code = Sodium Lvl) 139 135-145 N [facility]manCgfobayWHEJWUXXZ9124-43-01 22:50:00 Test Item Value Reference Range Interpretation Comments Chloride Lvl (test code = Chloride Lvl) 99 95-109 N [facility]manTncpsxaPQNJUEAHJ7230-28-02 22:50:00 Test Item Value Reference Range Interpretation Comments CO2 (test code = CO2) 27 24-32 N [facility]manSylftqpNBYIJGDHX3930-73-22 22:50:00 Test Item Value Reference Range Interpretation Comments Glucose Lvl (test code = Glucose Lvl) 301 70-99 H [facility]manCqhdmgzRXNUKYJTG3971-55-75 22:50:00 Test Item Value Reference Range Interpretation Comments BUN (test code = BUN) 15 7-22 N [facility]manOgybwlqAMABIDUHN9755-53-02 22:50:00 Test Item Value Reference Range Interpretation Comments ALT (test code = ALT) 24 See_Comment N [Auto mated message] The system which ge nerated this result transmit rohit reference range : <=65. The reference range was not used to interpr et this result as reji l/abnormal. [facility]manQppdnwvKKJYEAJQR6020-25-24 22:50:00 Test Item Value Reference Range Interpretation Comments AST (test code = AST) 20 See_Comment N [Auto mated message] The system which ge nerated this result transmit rohit reference range : <=37. The reference range was not used to interpr et this result as reji l/abnormal. [facility]manFzfdcahWYNNHQIHN6967-36-41 22:50:00 Test Item Value Reference Range Interpretation Comments Alk Phos (test code = Alk Phos) 67 39-136 N [facility]manEdvnpukKYFDHTWMY3533-88-12 22:50:00 Test Item Value Reference Range Interpretation Comments Albumin Lvl (test code = Albumin Lvl) 4.4 3.5-5.0 N [facility]manUygzlauHMZXPMLBM1854-46-66 22:50:00 Test Item Value Reference Range Interpretation Comments Calcium Lvl (test code = Calcium Lvl) 9.9 8.5-10.5 N [facility] CampusZjmxbcrQJJHKFVVZL3340-42-49 22:50:00 Test Item Value Reference Range Interpretation Comments MPV (test code = MPV) 11.8 7.4-10.4 H [facility] CampusWoojnopJQBEYUKSZW4349-93-28 22:50:00 Test Item Value Reference Range Interpretation Comments MCHC (test code = MCHC) 35.9 32.0-36.0 N [facility] CampusZlphkztKNOKYZQTQY7575-92-21 22:50:00 Test Item Value Reference Range Interpretation Comments MCH (test code = MCH) 31.2 pg 27.0-31.0 H [facility] CampusSokrtapZEYPLTSJBF7919-11-99 22:50:00 Test Item Value Reference Range Interpretation Comments Platelet (test code = Platelet) 189 133-450 N [facility] CampusAzwfwemVUWHRDFIEI4995-61-98 22:50:00 Test Item Value Reference Range Interpretation Comments RDW (test code = RDW) 13.1 11.5-14.5 N [facility] CampusRcqsxbhULFOFOSDSL2081-56-06 22:50:00 Test Item Value Reference Range Interpretation Comments Hct (test code = Hct) 40.7 36.0-48.0 N [facility] CampusKndzqagEBRFMASVBU0506-06-47 22:50:00 Test Item Value Reference Range Interpretation Comments Hgb (test code = Hgb) 14.6 12.0-16.0 N [facility] CampusDjaojukTLXKVTJDEZ4552-74-18 22:50:00 Test Item Value Reference Range Interpretation Comments MCV (test code = MCV) 87.0 81.0-99.0 N [facility] CampusIcauhqrMYFZXJTDXR1143-89-36 22:50:00 Test Item Value Reference Range Interpretation Comments WBC (test code = WBC) 11.7 3.7-10.4 H [facility] CampusNhwhkmlGCYGTGLHNW2408-96-65 22:50:00 Test Item Value Reference Range Interpretation Comments RBC (test code = RBC) 4.68 4.20-5.40 N [facility] CampusDrbfczjRGGDHTMWVJ5294-74-60 22:50:00 Test Item Value Reference Range Interpretation Comments Basophils # (test code 0.0 See_Comment N [Aut omated message] The = Basophils #) system which generated this result tra nsmitted reference range : <=0.2. The reference r leo was not used to int erpret this result as normal/abnormal . [facility] CampusAnrnuxxARJHQCALUH2707-14-83 22:50:00 Test Item Value Reference Range Interpretation Comments Basophils (test code = 0.2 See_Comment N [Aut omated message] The Basophils) system which ge nerated this result tra nsmitted reference range : <=1.0. The reference r leo was not used to int erpret this result as normal/abnormal . [facility] CampusZkzjfxfQZJFKJLLTV8474-53-39 22:50:00 Test Item Value Reference Range Interpretation Comments Eosinophils # (test code 0.0 See_Comment N [A utomated message] The = Eosinophils #) system whic h generated this result tra nsmitted reference range : <=0.5. The reference r leo was not used to int erpret this result as normal/abnormal . [facility] CampusPrjhghcBJXXVAXZCM0576-45-46 22:50:00 Test Item Value Reference Range Interpretation Comments Monocytes # (test code 0.4 See_Comment N [Aut omated message] The = Monocytes #) system which generated this result tra nsmitted reference range : <=0.8. The reference r leo was not used to int erpret this result as normal/abnormal . [facility] CampusMfattaeBLZNCDRIAA0213-43-46 22:50:00 Test Item Value Reference Range Interpretation Comments Segs-Bands # (test code = Segs-Bands #) 10.6 1.5-8.1 H [facility] CampusFskgxzvIIAMCDQSMY9867-53-77 22:50:00 Test Item Value Reference Range Interpretation Comments Lymphocytes # (test code = Lymphocytes 0.7 1.0-5.5 L #) [facility] CampusCooqmepDCSTPYUJWX5384-78-56 22:50:00 Test Item Value Reference Range Interpretation Comments Monocytes (test code = Monocytes) 3.4 2.0-12.0 N [facility] CampusStaajapJROTQYEORK0804-72-69 22:50:00 Test Item Value Reference Range Interpretation Comments Plt Morph (test code = Normal (03/14/2012 N Plt Morph) 17:50:00) [facility] CampusFriabujGAOYBZQAOS2182-63-39 22:50:00 Test Item Value Reference Range Interpretation Comments Lymphocytes (test code = Lymphocytes) 6.0 20.0-40.0 L [facility] CampusOiuxuduQDAILHPZYT4029-73-88 22:50:00 Test Item Value Reference Range Interpretation Comments Eosinophils (test code = 0.0 See_Comment N [A utomated message] The Eosinophils) system which ge nerated this result tra nsmitted reference range : <=4.0. The reference r leo was not used to int erpret this result as normal/abnormal . [facility] CampusGpttbosVWWJXMVCGI7434-97-56 22:50:00 Test Item Value Reference Range Interpretation Comments Segs (test code = Segs) 90.4 45.0-75.0 H [facility] CampusZmgyubkRJNBYGLLPC0502-01-51 22:50:00 Test Item Value Reference Range Interpretation Comments RBC Morph (test code = Normal (03/14/2012 N RBC Morph) 17:50:00) [facility] QSCCJQM3800-16-86 23:43:00 Test Item Value Reference Range Interpretation Comments Gluc POC Lifscn (test code = Gluc POC 167 70-99 H Lifscn) [facility]annBED[facility] MEWMFON3150-99-13 23:43:00 Test Item Value Reference Range Interpretation Comments Comment1 (test code = Comment1) Notify RN/ [facility] [id number] 23:43:00 Test Item Value Reference Range Interpretation Comments Comment2 (test code = Comment2) Sliding Scale [facility] GLU[facility] [id number] 23:43:00 Test Item Value Reference Range Interpretation Comments Gluc POC Lifscn (test code = Gluc POC 167 70-99 H Lifscn) [facility] GLU[facility]SE NYWNCSW0249-92-01 23:43:00 Test Item Value Reference Range Interpretation Comments Comment1 (test code = Comment1) Notify RN/ [facility] GLUCOSE [id number] 23:43:00 Test Item Value Reference Range Interpretation Comments Comment2 (test code = Comment2) Sliding Scale [facility]SE YSJQLEY9718-29-32 23:43:00 Test Item Value Reference Range Interpretation Comments Gluc POC Lifscn (test code = Gluc POC 167 70-99 H Lifscn) [facility] [id number] 23:43:00 Test Item Value Reference Range Interpretation Comments Comment1 (test code = Comment1) Not[facility] RN/ [facility] [place]SE [id number] 23:43:00 Test Item Value Reference Range Interpretation Comments Comment2 (test code = Comment2) Sliding Scale [facility] GLU[facility]SE [id number] 23:43:00 Test Item Value Reference Range Interpretation Comments Gluc POC Lifscn (test code = Gluc POC 167 70-99 H Lifscn) [facility] [id number] 23:43:00 Test Item Value Reference Range Interpretation Comments Comment1 (test code = Comment1) [facility] [id number] 23:43:00 Test Item Value Reference Range Interpretation Comments Comment2 (test code = Comment2) Sliding Scale [facility] [id number] 23:43:00 Test Item Value Reference Range Interpretation Comments Gluc POC Lifscn (test code = Gluc POC 167 70-99 H Lifscn) [facility] [id number] 23:43:00 Test Item Value Reference Range Interpretation Comments Comment1 (test code = Comment1) [facility]/ [facility] [id number] 23:43:00 Test Item Value Reference Range Interpretation Comments Comment2 (test code = Comment2) [facility]iding Scale [facility] [id number] 17:40:00 Test Item Value Reference Range Interpretation Comments Gluc POC Lifscn (test code = Gluc POC 189 70-99 H Lifscn) [facility] [id number] 17:40:00 Test Item Value Reference Range Interpretation Comments Comment1 (test code = Comment1) Notify RN/ [facility] GLUCOSE [id number] 17:40:00 Test Item Value Reference Range Interpretation Comments Comment2 (test code = Comment2) Sliding Scale [facility] GLUCOSE [id number] 17:40:00 Test Item Value Reference Range Interpretation Comments Gluc POC Lifscn (test code = Gluc POC 189 70-99 H Lifscn) [facility] GLUCOSE [id number] 17:40:00 Test Item Value Reference Range Interpretation Comments Comment1 (test code = Comment1) Notify RN/ [facility] GLUCOSE [id number] 17:40:00 Test Item Value Reference Range Interpretation Comments Comment2 (test code = Comment2) [facility]iding Scale [facility] [id number] 17:40:00 Test Item Value Reference Range Interpretation Comments Gluc POC Lifscn (test code = Gluc POC 189 70-99 H Lifscn) [facility] GLUCOSE [id number] 17:40:00 Test Item Value Reference Range Interpretation Comments Comment1 (test code = Comment1) Notify RN/ [facility] GLUCOSE [id number] 17:40:00 Test Item Value Reference Range Interpretation Comments Comment2 (test code = Comment2) [facility] [id number] 17:40:00 Test Item Value Reference Range Interpretation Comments Gluc POC Lifscn (test code = Gluc POC 189 70-99 H Lifscn) [facility] GLUCOSE [id number] 17:40:00 Test Item Value Reference Range Interpretation Comments Comment1 (test code = Comment1) [facility] [id number] 17:40:00 Test Item Value Reference Range Interpretation Comments Comment2 (test code = Comment2) [facility] [id number] 17:40:00 Test Item Value Reference Range Interpretation Comments Gluc POC Lifscn (test code = Gluc POC 189 70-99 H Lifscn) [facility] [id number] 17:40:00 Test Item Value Reference Range Interpretation Comments Comment1 (test code = Comment1) [facility] [id number] 17:40:00 Test Item Value Reference Range Interpretation Comments Comment2 (test code = Comment2) [facility]iding [facility] [id number] 13:34:00 Test Item Value Reference Range Interpretation Comments Comment2 (test code = Comment2) Sliding Scale [facility] [id number] 13:34:00 Test Item Value Reference Range Interpretation Comments Gluc POC Lifscn (test code = Gluc POC 110 70-99 H Lifscn) [facility] [id number] 13:34:00 Test Item Value Reference Range Interpretation Comments Comment1 (test code = Comment1) [facility] RN/ [facility] [id number] 13:34:00 Test Item Value Reference Range Interpretation Comments Comment2 (test code = Comment2) Sliding Scale [facility] [id number] 13:34:00 Test Item Value Reference Range Interpretation Comments Gluc POC Lifscn (test code = Gluc POC 110 70-99 H Lifscn) [facility] [id number] 13:34:00 Test Item Value Reference Range Interpretation Comments Comment1 (test code = Comment1) Notify RN/ [facility] [id number] 13:34:00 Test Item Value Reference Range Interpretation Comments Comment2 (test code = Comment2) Sliding Scale [facility] [id number] 13:34:00 Test Item Value Reference Range Interpretation Comments Gluc POC Lifscn (test code = Gluc POC 110 70-99 H Lifscn) [facility] [id number] 13:34:00 Test Item Value Reference Range Interpretation Comments Comment1 (test code = Comment1) Notify RN/ [facility] GLUCOSE [id number] 13:34:00 Test Item Value Reference Range Interpretation Comments Comment2 (test code = Comment2) Sliding Scale [facility] GLUCOSE [id number] 13:34:00 Test Item Value Reference Range Interpretation Comments Gluc POC Lifscn (test code = Gluc POC 110 70-99 H Lifscn) [facility] GLUCOSE [id number] 13:34:00 Test Item Value Reference Range Interpretation Comments Comment1 (test code = Comment1) Notify RN/ [facility] GLUCOSE [id number] 13:34:00 Test Item Value Reference Range Interpretation Comments Comment2 (test code = Comment2) Sliding Scale [facility] GLUCOSE [id number] 13:34:00 Test Item Value Reference Range Interpretation Comments Gluc POC Lifscn (test code = Gluc POC 110 70-99 H Lifscn) [facility] GLUCOSE [id number] 13:34:00 Test Item Value Reference Range Interpretation Comments Comment1 (test code = Comment1) Not[facility]/ [facility] Hospital[id number] 00:00:00 Test Item Value Reference Range Interpretation Comments U Preg (test code = U Negative (11/28/2011 N Preg) 19:00:00) [facility] HospitalNneqoszNGIDKHVUUU2077-27-22 00:00:00 Test Item Value Reference Range Interpretation Comments Micro? (test code = Performed (11/28/2011 N Micro?) 19:00:00) [facility] HospitalBwvxtkjTLILRUTDGG3605-72-08 00:00:00 Test Item Value Reference Range Interpretation Comments UA Sq Epi (test code Occasional /LPF N = UA Sq Epi) (11/28/2011 19:00:00) [facility] Hospit[id number] 00:00:00 Test Item Value Reference Range Interpretation Comments UA RBC (test None Seen See_Comment N [Automated mes pastor] code = UA RBC) (11/28/2011 The system ich 19:00:00) generated this result transmitted ref erence range: <=2. The reference range was not used to int erpret this result as normal/abnormal . [facility]DavgdgrXULQWSZBYS8249-02-03 00:00:00 Test Item Value Reference Range Interpretation Comments UA WBC (test code Occasional See_Comment [Automate d message] The = UA WBC) system which ge nerated this result tra nsmitted reference range : <=5. The reference range was not used to interpr et this result as normal/abnormal . [facility] WestMwnzbxxWFSXVEXXKZ4566-75-12 00:00:00 Test Item Value Reference Range Interpretation Comments UA Protein (test code Negative mg/dL N = UA Protein) (11/28/2011 19:00:00) [facility] WestG[id number] 00:00:00 Test Item Value Reference Range Interpretation Comments UA pH (test code = UA pH) 7.0 1 5.0-8.0 N [facility] WestCubinioKRVDTBMDXS9610-21-25 00:00:00 Test Item Value Reference Range Interpretation Comments UA Spec Grav (test code = UA Spec 1.020 1 N Grav) [facility] WestOfqcukyMTIPMAMJBS7889-06-33 00:00:00 Test Item Value Reference Range Interpretation Comments UA Turbidity (test code = Clear (11/28/2011 N UA Turbidity) 19:00:00) [facility] HospitalT[id number] 00:00:00 Test Item Value Reference Range Interpretation Comments UA Color (test code = Yellow *NA*(11/28/2011 UA Color) 19:00:00) [facility] WestXrjktibDNBXZEAUOD3573-37-89 00:00:00 Test Item Value Reference Range Interpretation Comments UA Urobilinogen (test code = UA 0.2 0.1-1.0 N Urobilinogen) [facility] WestXljtdtgUIUKWNSLRQ1192-40-71 00:00:00 Test Item Value Reference Range Interpretation Comments UA Blood (test code = Negative (11/28/2011 N UA Blood) 19:00:00) [facility] WestOxgcxtqGDQFXGYKDN0938-92-64 00:00:00 Test Item Value Reference Range Interpretation Comments UA Bili (test code = Negative *NA*(11/28/2011 UA Bili) 19:00:00) [facility] WestFgyvyiyLNCKFKGMWX2418-37-45 00:00:00 Test Item Value Reference Range Interpretation Comments UA Ketones (test code = >=80 mg/dL A UA Ketones) *ABN*(11/28/2011 19:00:00) [facility] HospitalFqwhdhsILUMOZWZDU9162-85-76 00:00:00 Test Item Value Reference Range Interpretation Comments UA Glucose (test code = >=1000 mg/dL A UA Glucose) *ABN*(11/28/2011 19:00:00) [facility] HospitalDbupawvSNXWCKTGGP5425-38-89 00:00:00 Test Item Value Reference Range Interpretation Comments UA Nitrite (test code Negative (11/28/2011 N = UA Nitrite) 19:00:00) [facility] HospitalCysctqlXFKDNRYYBS8170-58-79 00:00:00 Test Item Value Reference Range Interpretation Comments UA Leuk Est (test Negative (11/28/2011 N code = UA Leuk Est) 19:00:00) [facility] HospitalOctzxvxOLTJYDWEI6350-07-70 00:00:00 Test Item Value Reference Range Interpretation Comments U Preg (test code = U Negative (11/28/2011 N Preg) 19:00:00) [facility] HospitalMnkjlwfCTCQLXUORV9528-27-16 00:00:00 Test Item Value Reference Range Interpretation Comments Micro? (test code = Performed (11/28/2011 N Micro?) 19:00:00) [facility] HospitalEkiozbmONEZLBCIEJ4229-00-45 00:00:00 Test Item Value Reference Range Interpretation Comments UA Sq Epi (test code Occasional /LPF N = UA Sq Epi) (11/28/2011 19:00:00) [facility] HospitalNdlddwbFZMHHDFTKU4619-81-30 00:00:00 Test Item Value Reference Range Interpretation Comments UA RBC (test None Seen See_Comment N [Automated mes pastor] code = UA RBC) (11/28/2011 The system ich 19:00:00) generated this result transmitted ref erence range: <=2. The reference range was not used to int erpret this result as normal/abnormal . [facility] HospitalQfixxxlIJCJOLNEFX0268-89-09 00:00:00 Test Item Value Reference Range Interpretation Comments UA WBC (test code Occasional See_Comment [Automate d message] The = UA WBC) system which ge nerated this result tra nsmitted reference range : <=5. The reference range was not used to interpr et this result as normal/abnormal . [facility] HospitalKpibewmUEUXGKUGRJ9225-26-09 00:00:00 Test Item Value Reference Range Interpretation Comments UA Protein (test code Negative mg/dL N = UA Protein) (11/28/2011 19:00:00) [facility] StationYupgeijTXGJPIQVZK7132-15-69 00:00:00 Test Item Value Reference Range Interpretation Comments UA pH (test code = UA pH) 7.0 1 5.0-8.0 N [facility] StationQxyrfruOJMBOHIJCA1703-10-45 00:00:00 Test Item Value Reference Range Interpretation Comments UA Spec Grav (test code = UA Spec 1.020 1 N Grav) [facility] StationYghwgqzKHUVDUKRML0487-20-71 00:00:00 Test Item Value Reference Range Interpretation Comments UA Turbidity (test code = Clear (11/28/2011 N UA Turbidity) 19:00:00) [facility] StationCdujevlQOCBAWPAUB0321-60-88 00:00:00 Test Item Value Reference Range Interpretation Comments UA Color (test code = Yellow *NA*(11/28/2011 UA Color) 19:00:00) [facility] StationLwkotmfJASXNHZLZN2583-75-06 00:00:00 Test Item Value Reference Range Interpretation Comments UA Urobilinogen (test code = UA 0.2 0.1-1.0 N Urobilinogen) [facility] StationCsjgfioPGIGHQHSLS7549-86-40 00:00:00 Test Item Value Reference Range Interpretation Comments UA Blood (test code = Negative (11/28/2011 N UA Blood) 19:00:00) [facility] StationGrfadsaMCBRZKFKQS8568-83-77 00:00:00 Test Item Value Reference Range Interpretation Comments UA Bili (test code = Negative *NA*(11/28/2011 UA Bili) 19:00:00) [facility] StationMyptbmkYZIRKIBPSZ4493-80-80 00:00:00 Test Item Value Reference Range Interpretation Comments UA Ketones (test code = >=80 mg/dL A UA Ketones) *ABN*(11/28/2011 19:00:00) [facility] StationJsfhmkuACVJUHNJDN9613-67-36 00:00:00 Test Item Value Reference Range Interpretation Comments UA Glucose (test code = >=1000 mg/dL A UA Glucose) *ABN*(11/28/2011 19:00:00) [facility] StationUuhgxzyRUQTYDOLZX0511-56-57 00:00:00 Test Item Value Reference Range Interpretation Comments UA Nitrite (test code Negative (11/28/2011 N = UA Nitrite) 19:00:00) [facility] QzxlrscXRKBPYQQBC5965-02-49 00:00:00 Test Item Value Reference Range Interpretation Comments UA Leuk Est (test Negative (11/28/2011 N code = UA Leuk Est) 19:00:00) [facility] HospitalFftjjnlEXYPJFFGC8923-15-99 00:00:00 Test Item Value Reference Range Interpretation Comments U Preg (test code = U Negative (11/28/2011 N Preg) 19:00:00) [facility] HospitalPlnzvbpXHOAHYPFXW3659-59-48 00:00:00 Test Item Value Reference Range Interpretation Comments Micro? (test code = Performed (11/28/2011 N Micro?) 19:00:00) [facility] HospitalRdtyftkOKCRYNJOHD8788-63-75 00:00:00 Test Item Value Reference Range Interpretation Comments UA Sq Epi (test code Occasional /LPF N = UA Sq Epi) (11/28/2011 19:00:00) [facility] HospitalUaeykaqOWFFUIEVLN8869-86-17 00:00:00 Test Item Value Reference Range Interpretation Comments UA RBC (test None Seen See_Comment N [Automated mes pastor] code = UA RBC) (11/28/2011 The system ich 19:00:00) generated this result transmitted ref erence range: <=2. The reference range was not used to int erpret this result as normal/abnormal . [facility] HospitalOxgentxTPDRVGTMQE7538-94-26 00:00:00 Test Item Value Reference Range Interpretation Comments UA WBC (test code Occasional See_Comment [Automate d message] The = UA WBC) system which ge nerated this result tra nsmitted reference range : <=5. The reference range was not used to interpr et this result as normal/abnormal . [facility] HospitalBcsimuaZXQROHBUHR3744-01-37 00:00:00 Test Item Value Reference Range Interpretation Comments UA Protein (test code Negative mg/dL N = UA Protein) (11/28/2011 19:00:00) [facility] HospitalKlfrhrqKEOYARMODS3669-85-40 00:00:00 Test Item Value Reference Range Interpretation Comments UA pH (test code = UA pH) 7.0 1 5.0-8.0 N [facility] HospitalFwbhpnqYACRIMDFCT2925-26-48 00:00:00 Test Item Value Reference Range Interpretation Comments UA Spec Grav (test code = UA Spec 1.020 1 N Grav) [facility] HospitalXknmmosYKPORVITYV6031-51-77 00:00:00 Test Item Value Reference Range Interpretation Comments UA Turbidity (test code = Clear (11/28/2011 N UA Turbidity) 19:00:00) [facility] WestOyuzakcSMPJPTPKFP6331-53-96 00:00:00 Test Item Value Reference Range Interpretation Comments UA Color (test code = Yellow *NA*(11/28/2011 UA Color) 19:00:00) [facility] HospitalEdvbqyfLNCYHYCIAC5656-27-57 00:00:00 Test Item Value Reference Range Interpretation Comments UA Urobilinogen (test code = UA 0.2 0.1-1.0 N Urobilinogen) [facility] WestUooimeoFNHBIEARGV9275-64-06 00:00:00 Test Item Value Reference Range Interpretation Comments UA Blood (test code = Negative (11/28/2011 N UA Blood) 19:00:00) [facility] WestPyzpnkpMRULJFRYGN7845-18-86 00:00:00 Test Item Value Reference Range Interpretation Comments UA Bili (test code = Negative *NA*(11/28/2011 UA Bili) 19:00:00) [facility] HospitalQlvkynwJRONGXNCLN3848-51-45 00:00:00 Test Item Value Reference Range Interpretation Comments UA Ketones (test code = >=80 mg/dL A UA Ketones) *ABN*(11/28/2011 19:00:00) [facility] HospitalTjgtkdxWRBKODRIWD7295-61-90 00:00:00 Test Item Value Reference Range Interpretation Comments UA Glucose (test code = >=1000 mg/dL A UA Glucose) *ABN*(11/28/2011 19:00:00) [facility] HospitalEzfhyaeOQOZJMZLUZ6741-94-25 00:00:00 Test Item Value Reference Range Interpretation Comments UA Nitrite (test code Negative (11/28/2011 N = UA Nitrite) 19:00:00) [facility] WestXhahsgnXNLCKIKFHC3590-79-96 00:00:00 Test Item Value Reference Range Interpretation Comments UA Leuk Est (test Negative (11/28/2011 N code = UA Leuk Est) 19:00:00) [facility] HospitalUbetcrfOYKPTLEEZ4767-17-58 00:00:00 Test Item Value Reference Range Interpretation Comments U Preg (test code = U Negative (11/28/2011 N Preg) 19:00:00) [facility] WestVkljcvrEBGPMQCDPX1327-33-31 00:00:00 Test Item Value Reference Range Interpretation Comments Micro? (test code = Performed (11/28/2011 N Micro?) 19:00:00) [facility] StationWvgrmrnRIIHQUDWHD3994-05-53 00:00:00 Test Item Value Reference Range Interpretation Comments UA Sq Epi (test code Occasional /LPF N = UA Sq Epi) (11/28/2011 19:00:00) [facility] WestNttxzkfSGSFYIAXCI4785-94-47 00:00:00 Test Item Value Reference Range Interpretation Comments UA RBC (test None Seen See_Comment N [Automated mes pastor] code = UA RBC) (11/28/2011 The system wh ich 19:00:00) generated this result transmitted ref erence range: <=2. The reference range was not used to int erpret this result as normal/abnormal . [facility] WestPywkbkwCHUSZPFMJB5362-74-42 00:00:00 Test Item Value Reference Range Interpretation Comments UA WBC (test code Occasional See_Comment [Automate d message] The = UA WBC) system which ge nerated this result tra nsmitted reference range : <=5. The reference range was not used to interpr et this result as normal/abnormal . [facility] HospitalIdwehyqUTMKIFRDQM1758-32-17 00:00:00 Test Item Value Reference Range Interpretation Comments UA Protein (test code Negative mg/dL N = UA Protein) (11/28/2011 19:00:00) [facility] WestTofktwrMKFJDSNZDE1301-36-82 00:00:00 Test Item Value Reference Range Interpretation Comments UA pH (test code = UA pH) 7.0 1 5.0-8.0 N [facility] WestKdyfkhmLAPQWYCMOT9495-50-45 00:00:00 Test Item Value Reference Range Interpretation Comments UA Spec Grav (test code = UA Spec 1.020 1 N Grav) [facility] WestDdyruxyOFOBNMSKHE8278-99-36 00:00:00 Test Item Value Reference Range Interpretation Comments UA Turbidity (test code = Clear (11/28/2011 N UA Turbidity) 19:00:00) [facility] WestVmstuceEMDAINCOKX6890-70-54 00:00:00 Test Item Value Reference Range Interpretation Comments UA Color (test code = Yellow *NA*(11/28/2011 UA Color) 19:00:00) [facility] HospitalMkdlvfrZHHPMGUPWI8484-91-92 00:00:00 Test Item Value Reference Range Interpretation Comments UA Urobilinogen (test code = UA 0.2 0.1-1.0 N Urobilinogen) [facility] HospitalEkfczlxLAUUKZVYKT5845-78-03 00:00:00 Test Item Value Reference Range Interpretation Comments UA Blood (test code = Negative (11/28/2011 N UA Blood) 19:00:00) [facility] HospitalIdkzyykYYUMEKQYWO1724-25-42 00:00:00 Test Item Value Reference Range Interpretation Comments UA Bili (test code = Negative *NA*(11/28/2011 UA Bili) 19:00:00) [facility] HospitalDhnckddPCSHKOOWVT8284-91-63 00:00:00 Test Item Value Reference Range Interpretation Comments UA Ketones (test code = >=80 mg/dL A UA Ketones) *ABN*(11/28/2011 19:00:00) [facility] HospitalEcjpwacTMGLFKPEOG1406-69-58 00:00:00 Test Item Value Reference Range Interpretation Comments UA Glucose (test code = >=1000 mg/dL A UA Glucose) *ABN*(11/28/2011 19:00:00) [facility] HospitalUibtjqoNPNFLKWCPI5229-02-07 00:00:00 Test Item Value Reference Range Interpretation Comments UA Nitrite (test code Negative (11/28/2011 N = UA Nitrite) 19:00:00) [facility] HospitalUiczlkuRJKFDQTFBY0245-96-72 00:00:00 Test Item Value Reference Range Interpretation Comments UA Leuk Est (test Negative (11/28/2011 N code = UA Leuk Est) 19:00:00) [facility] HospitalVwqiwbyGKVNUPZUY1312-14-22 00:00:00 Test Item Value Reference Range Interpretation Comments U Preg (test code = U Negative (11/28/2011 N Preg) 19:00:00) [facility] HospitalWhnpmcdEEXSJMFDZX1161-80-12 00:00:00 Test Item Value Reference Range Interpretation Comments Micro? (test code = Performed (11/28/2011 N Micro?) 19:00:00) [facility] HospitalIyhnhywWGNWMRSWRG5603-44-00 00:00:00 Test Item Value Reference Range Interpretation Comments UA Sq Epi (test code Occasional /LPF N = UA Sq Epi) (11/28/2011 19:00:00) [facility] WestSsdcelqRJQUXELNXH0265-45-09 00:00:00 Test Item Value Reference Range Interpretation Comments UA RBC (test None Seen See_Comment N [Automated mes pastor] code = UA RBC) (11/28/2011 The system wh ich 19:00:00) generated this result transmitted ref erence range: <=2. The reference range was not used to int erpret this result as normal/abnormal . [facility] WestDibhmuvDWNXVYZJUL5874-99-78 00:00:00 Test Item Value Reference Range Interpretation Comments UA WBC (test code Occasional See_Comment [Automate d message] The = UA WBC) system which ge nerated this result tra nsmitted reference range : <=5. The reference range was not used to interpr et this result as normal/abnormal . [facility] WestQvpmznyYRSGHJMOHD6731-17-71 00:00:00 Test Item Value Reference Range Interpretation Comments UA Protein (test code Negative mg/dL N = UA Protein) (11/28/2011 19:00:00) [facility] HospitalCfjajebGGDGICTAAF0061-93-56 00:00:00 Test Item Value Reference Range Interpretation Comments UA pH (test code = UA pH) 7.0 1 5.0-8.0 N [facility] WestEwxzjsnUMUNUFHQUG5725-26-87 00:00:00 Test Item Value Reference Range Interpretation Comments UA Spec Grav (test code = UA Spec 1.020 1 N Grav) [facility] WestIrsxixrTSKYQSWWWT8433-78-25 00:00:00 Test Item Value Reference Range Interpretation Comments UA Turbidity (test code = Clear (11/28/2011 N UA Turbidity) 19:00:00) [facility] WestNknjfvbNSCTJKSFSO1586-03-91 00:00:00 Test Item Value Reference Range Interpretation Comments UA Color (test code = Yellow *NA*(11/28/2011 UA Color) 19:00:00) [facility] WestQzfnpgyKUCSPXTWKT2189-43-53 00:00:00 Test Item Value Reference Range Interpretation Comments UA Urobilinogen (test code = UA 0.2 0.1-1.0 N Urobilinogen) [facility] WestEfpfcoiMMRCAZWLDL1518-08-35 00:00:00 Test Item Value Reference Range Interpretation Comments UA Blood (test code = Negative (11/28/2011 N UA Blood) 19:00:00) [facility] HospitalZmctoowRZOJMRRTUR6015-39-68 00:00:00 Test Item Value Reference Range Interpretation Comments UA Bili (test code = Negative *NA*(11/28/2011 UA Bili) 19:00:00) [facility] WestXcpkgwhMGWBWVPKZL9004-14-73 00:00:00 Test Item Value Reference Range Interpretation Comments UA Ketones (test code = >=80 mg/dL A UA Ketones) *ABN*(11/28/2011 19:00:00) [facility] HospitalJwtwrtqKWBJAMSFHV8601-43-96 00:00:00 Test Item Value Reference Range Interpretation Comments UA Glucose (test code = >=1000 mg/dL A UA Glucose) *ABN*(11/28/2011 19:00:00) [facility] WestKeikgtpGIXPLSFDBO1423-40-94 00:00:00 Test Item Value Reference Range Interpretation Comments UA Nitrite (test code Negative (11/28/2011 N = UA Nitrite) 19:00:00) [facility] WestDdfezkuMYVPYVWPCG9708-80-81 00:00:00 Test Item Value Reference Range Interpretation Comments UA Leuk Est (test Negative (11/28/2011 N code = UA Leuk Est) 19:00:00) [facility]SwivxurYPMYYEGJF5851-15-15 20:41:00 Test Item Value Reference Range Interpretation Comments pO2 Roberth (test code = pO2 Roberth) 60 20-49 H [facility]JhfthdgUNQDHVKBE4677-82-61 20:41:00 Test Item Value Reference Range Interpretation Comments pCO2 Roberth (test code = pCO2 Roberth) 41 38-52 N [facility]CengpmkSDXXHVKMH8893-55-27 20:41:00 Test Item Value Reference Range Interpretation Comments pH Roberth (test code = pH Roberth) 7.45 7.28-7.42 H [facility]IyjfzzhNPNFIBHLF2694-44-27 20:41:00 Test Item Value Reference Range Interpretation Comments Temp Roberth (test code = Temp Roberth) 37.0 [facility]tf[facility]ah[facility]XZSVESOH1710-49-61 20:41:00 Test Item Value Reference Range Interpretation Comments O2 Sat Roberth (test code = O2 Sat Roberth) 92.0 40.0-70.0 H [facility]NslkdzzZLWBOFLCY0619-99-28 20:41:00 Test Item Value Reference Range Interpretation Comments BE Roberth (test code = 4 See_Comment H [Automa rohit message] The BE Roberth) system which ge nerated this result transmit rohit reference range : <=2. The reference range was not used to interpr et this result as reji l/abnormal. [facility]manBedrtmwJEFYXGSGR6524-17-77 20:41:00 Test Item Value Reference Range Interpretation Comments HCO3 Roberth (test code = HCO3 Roberth) 28.5 22.0-26.0 H [facility]manUjfkexqRMNAXFAGY7877-95-85 20:41:00 Test Item Value Reference Range Interpretation Comments pO2 Roberth (test code = pO2 Roberth) 60 20-49 H [facility]manFznsmucKQOAWTUHP4964-72-49 20:41:00 Test Item Value Reference Range Interpretation Comments pCO2 Roberth (test code = pCO2 Roberth) 41 38-52 N [facility]manExjjyquIULVKKYAN9134-87-38 20:41:00 Test Item Value Reference Range Interpretation Comments pH Roberth (test code = pH Roberth) 7.45 7.28-7.42 H [facility]manNmpdicbZQQUSDJYK5564-16-95 20:41:00 Test Item Value Reference Range Interpretation Comments Temp Roberth (test code = Temp Roberth) 37.0 [facility]SpcmcksKCUBETMNI7132-60-81 20:41:00 Test Item Value Reference Range Interpretation Comments O2 Sat Roberth (test code = O2 Sat Roberth) 92.0 40.0-70.0 H [facility]manMqblwqpIRZIQBDHU8049-03-79 20:41:00 Test Item Value Reference Range Interpretation Comments BE Roberth (test code = 4 See_Comment H [Automa rohit message] The BE Roberth) system which ge nerated this result transmit rohit reference range : <=2. The reference range was not used to interpr et this result as reji l/abnormal. [facility]manTggjveoIXTFHNHSZ5424-41-21 20:41:00 Test Item Value Reference Range Interpretation Comments HCO3 Roberth (test code = HCO3 Roberth) 28.5 22.0-26.0 H [facility]manRpczqqdHOMJYXOXJ0901-62-48 20:41:00 Test Item Value Reference Range Interpretation Comments pO2 Roberth (test code = pO2 Roberth) 60 20-49 H [facility]manArcjziiGKQSNIAGC3155-55-99 20:41:00 Test Item Value Reference Range Interpretation Comments pCO2 Roberth (test code = pCO2 Roberth) 41 38-52 N [facility]manGltuxpnAWRJWBOXR0799-16-19 20:41:00 Test Item Value Reference Range Interpretation Comments pH Roberth (test code = pH Roberth) 7.45 7.28-7.42 H [facility]manWisltmdTKAXSODUU6168-92-57 20:41:00 Test Item Value Reference Range Interpretation Comments Temp Roberth (test code = Temp Roberth) 37.0 [facility]manDudmpxrUNXFBDMKJ6746-48-67 20:41:00 Test Item Value Reference Range Interpretation Comments O2 Sat Roberth (test code = O2 Sat Roberth) 92.0 40.0-70.0 H [facility]manTtquvvcMKBQATPFZ2786-70-16 20:41:00 Test Item Value Reference Range Interpretation Comments BE Roberth (test code = 4 See_Comment H [Automa rohit message] The BE Roberth) system which ge nerated this result transmit rohit reference range : <=2. The reference range was not used to interpr et this result as reji l/abnormal. [facility]manUudrvedOSNMSRZVZ3138-34-23 20:41:00 Test Item Value Reference Range Interpretation Comments HCO3 Roberth (test code = HCO3 Roberth) 28.5 22.0-26.0 H [facility]manVfaywpcTLWMABBDK0727-11-31 20:41:00 Test Item Value Reference Range Interpretation Comments pO2 Roberth (test code = pO2 Roberth) 60 20-49 H [facility]manDckkjmuYNJOKVSQB1005-15-12 20:41:00 Test Item Value Reference Range Interpretation Comments pCO2 Roberth (test code = pCO2 Roberth) 41 38-52 N [facility]manJubuljoYMUUFSCCH8313-01-89 20:41:00 Test Item Value Reference Range Interpretation Comments pH Roberth (test code = pH Roberth) 7.45 7.28-7.42 H [facility]manVevvqxbQOZHVRQAE5748-66-36 20:41:00 Test Item Value Reference Range Interpretation Comments Temp Roberth (test code = Temp Roberth) 37.0 [facility]manSogrdnuZMUQHAZDL4202-80-18 20:41:00 Test Item Value Reference Range Interpretation Comments O2 Sat Roberth (test code = O2 Sat Roberth) 92.0 40.0-70.0 H [facility]manMhzpksvXAWANFOQR4735-55-23 20:41:00 Test Item Value Reference Range Interpretation Comments BE Roberth (test code = 4 See_Comment H [Automa rohit message] The BE Roberth) system which ge nerated this result transmit rohit reference range : <=2. The reference range was not used to interpr et this result as reji l/abnormal. [facility]manYkdyvwcEATGUMHWH2900-03-15 20:41:00 Test Item Value Reference Range Interpretation Comments HCO3 Roberth (test code = HCO3 Roberth) 28.5 22.0-26.0 H [facility]manJizouoqYBPUXDFUT5290-48-56 20:41:00 Test Item Value Reference Range Interpretation Comments pO2 Roberth (test code = pO2 Roberth) 60 20-49 H [facility]manZcxrymhAOCFWJYQI6421-55-65 20:41:00 Test Item Value Reference Range Interpretation Comments pCO2 Roberth (test code = pCO2 Roberth) 41 38-52 N [facility]manNzubgoyZCXOUZVIM6819-70-48 20:41:00 Test Item Value Reference Range Interpretation Comments pH Roberth (test code = pH Roberth) 7.45 7.28-7.42 H [facility]manDqiejonAXEJWGSMF8195-69-45 20:41:00 Test Item Value Reference Range Interpretation Comments Temp Roberth (test code = Temp Roberth) 37.0 [facility]manWxpampxXQBYOPHBI5810-90-82 20:41:00 Test Item Value Reference Range Interpretation Comments O2 Sat Roberth (test code = O2 Sat Roberth) 92.0 40.0-70.0 H [facility]manJaxrwifNQODCVMEI2867-84-74 20:41:00 Test Item Value Reference Range Interpretation Comments BE Roberth (test code = 4 See_Comment H [Automa rohit message] The BE Roberth) system which ge nerated this result transmit rohit reference range : <=2. The reference range was not used to interpr et this result as reji l/abnormal. [facility]manCefpwncZXLKIZNCH7498-56-25 20:41:00 Test Item Value Reference Range Interpretation Comments HCO3 Roberth (test code = HCO3 Roberth) 28.5 22.0-26.0 H [facility]manVodooqySAJXQBIIQ2806-87-06 20:00:00 Test Item Value Reference Range Interpretation Comments Lactic Acid Lvl (test code = Lactic 1.6 0.5-2.2 N Acid Lvl) [facility]manLdsuirqXIRCUUDOF6381-09-03 20:00:00 Test Item Value Reference Range Interpretation Comments Lipase Lvl (test code = Lipase Lvl) 125 73-393 N [facility]manXhoxmusWSSZPAYWY2892-05-20 20:00:00 Test Item Value Reference Range Interpretation Comments Albumin Lvl (test code = Albumin Lvl) 4.2 3.5-5.0 N [facility]manZqqmatoALVSDGFOA7502-37-86 20:00:00 Test Item Value Reference Range Interpretation Comments CO2 (test code = CO2) 23 24-32 L [facility]QcjgkmqZDPSLOZZR6905-68-08 20:00:00 Test Item Value Reference Range Interpretation Comments Chloride Lvl (test code = Chloride Lvl) 98 95-109 N [facility]manSflzdnjUGSYWJJDB8330-92-52 20:00:00 Test Item Value Reference Range Interpretation Comments Potassium Lvl (test code = Potassium 3.8 3.5-5.1 N Lvl) [facility]manJaewqfeXKJFRSIBE0320-73-35 20:00:00 Test Item Value Reference Range Interpretation Comments Sodium Lvl (test code = Sodium Lvl) 138 135-145 N [facility]manIabrruuIVBAWBQWQ4430-88-52 20:00:00 Test Item Value Reference Range Interpretation Comments Creatinine Lvl (test code = Creatinine 0.7 0.5-1.4 N Lvl) [facility]manAbeiirjKMWMCWLXH0946-68-81 20:00:00 Test Item Value Reference Range Interpretation Comments BUN (test code = BUN) 9 7-22 N [facility]manFitbhjeIFWGUKXUR6061-51-42 20:00:00 Test Item Value Reference Range Interpretation Comments Glucose Lvl (test code = Glucose Lvl) 269 70-99 H [facility]manCfwapezUQLIEZGKA4138-76-72 20:00:00 Test Item Value Reference Range Interpretation Comments B/C Ratio (test code = B/C Ratio) 13 6-25 N [facility]manGroegvxIZRDRXYGM8124-74-11 20:00:00 Test Item Value Reference Range Interpretation Comments AGAP (test code = AGAP) 20.8 10.0-20.0 H [facility]manPkmdxjlTJZPLLADL3229-78-91 20:00:00 Test Item Value Reference Range Interpretation Comments Calcium Lvl (test code = Calcium Lvl) 9.3 8.5-10.5 N [facility]manZdeasfjRXKBREQFU9755-56-78 20:00:00 Test Item Value Reference Range Interpretation Comments Total Protein (test code = Total 6.7 6.4-8.4 N Protein) [facility]manMotuqcqBITVWVWEL8257-54-61 20:00:00 Test Item Value Reference Range Interpretation Comments A/G Ratio (test code = A/G Ratio) 1.7 0.7-1.6 H [facility]manJdrgclxKOZLSOVTD0870-67-83 20:00:00 Test Item Value Reference Range Interpretation Comments Globulin (test code = Globulin) 2.5 2.0-4.0 N [facility]manLtfmokeGILHTLXFV7226-16-46 20:00:00 Test Item Value Reference Range Interpretation Comments AST (test code = AST) 18 See_Comment N [Auto mated message] The system which ge nerated this result transmit rohit reference range : <=37. The reference range was not used to interpr et this result as reji l/abnormal. [facility]manBaexbnuSGPFDMUHB3239-29-50 20:00:00 Test Item Value Reference Range Interpretation Comments Alk Phos (test code = Alk Phos) 62 39-136 N [facility]manWqcaabtOCKATNNRQ6146-00-42 20:00:00 Test Item Value Reference Range Interpretation Comments ALT (test code = ALT) 32 See_Comment N [Auto mated message] The system which ge nerated this result transmit rohit reference range : <=65. The reference range was not used to interpr et this result as reji l/abnormal. [facility]manDbzgftdMMXZKJXCA2802-11-79 20:00:00 Test Item Value Reference Range Interpretation Comments Bili Total (test code = Bili Total) 0.7 0.2-1.3 N [facility] CampusSacbftqBYAAORQUEZ5780-59-80 20:00:00 Test Item Value Reference Range Interpretation Comments Anisocyte (test code = 1+ *ABN*(11/28/2011 A Anisocyte) 15:00:00) [facility] CampusYbyfkvkXBNEYTTNIS8236-64-93 20:00:00 Test Item Value Reference Range Interpretation Comments Monocytes # (test code 0.1 See_Comment N [Aut omated message] The = Monocytes #) system which generated this result tra nsmitted reference range : <=0.8. The reference r leo was not used to int erpret this result as normal/abnormal . [facility] CampusHnvxujeXWEOKRSCCH3027-19-85 20:00:00 Test Item Value Reference Range Interpretation Comments Eosinophils # (test code 0.0 See_Comment N [A utomated message] The = Eosinophils #) system whic h generated this result tra nsmitted reference range : <=0.5. The reference r leo was not used to int erpret this result as normal/abnormal . [facility] CampusPlslmqeGTQZLWULJO7161-35-70 20:00:00 Test Item Value Reference Range Interpretation Comments Basophils # (test code 0.0 See_Comment N [Aut omated message] The = Basophils #) system which generated this result tra nsmitted reference range : <=0.2. The reference r leo was not used to int erpret this result as normal/abnormal . [facility] CampusIlsodfsELKGXHADHO5347-61-85 20:00:00 Test Item Value Reference Range Interpretation Comments Neut Vac (test code = Slight *ABN*(11/28/2011 A Neut Vac) 15:00:00) [facility] CampusPlwkayoRWVERBYIMF9829-95-49 20:00:00 Test Item Value Reference Range Interpretation Comments Large Plt (test code = Slight *ABN*(11/28/2011 A Large Plt) 15:00:00) [facility] CampusNocbbhrWAFQUDCEEX8459-96-87 20:00:00 Test Item Value Reference Range Interpretation Comments Segs-Bands # (test code = Segs-Bands #) 5.7 1.5-8.1 N [facility] CampusMrvvwpdJCAHZPZMXQ8217-64-98 20:00:00 Test Item Value Reference Range Interpretation Comments Lymphocytes # (test code = Lymphocytes 0.8 1.0-5.5 L #) [facility] CampusTgvovznFLCYYGSIBD9070-03-22 20:00:00 Test Item Value Reference Range Interpretation Comments Eosinophils (test code = 0.2 See_Comment N [A utomated message] The Eosinophils) system which ge nerated this result tra nsmitted reference range : <=4.0. The reference r leo was not used to int erpret this result as normal/abnormal . [facility] CampusTbhdqniYXURJQPJOJ5574-77-05 20:00:00 Test Item Value Reference Range Interpretation Comments Basophils (test code = 0.0 See_Comment N [Aut omated message] The Basophils) system which ge nerated this result tra nsmitted reference range : <=1.0. The reference r leo was not used to int erpret this result as normal/abnormal . [facility] CampusTyxwwzvPLTEEEZYHN6946-77-62 20:00:00 Test Item Value Reference Range Interpretation Comments Monocytes (test code = Monocytes) 1.9 2.0-12.0 L [facility] CampusZuiaxwdHEPXZZDDTV7076-55-41 20:00:00 Test Item Value Reference Range Interpretation Comments Segs (test code = Segs) 86.2 45.0-75.0 H [facility] CampusTmmnevuFHZKQJAGQX1901-12-68 20:00:00 Test Item Value Reference Range Interpretation Comments Lymphocytes (test code = Lymphocytes) 11.7 20.0-40.0 L [facility] CampusEsfcrudWDVOBPNDSB2821-81-30 20:00:00 Test Item Value Reference Range Interpretation Comments MPV (test code = MPV) 10.8 7.4-10.4 H [facility] CampusOrdtwedESGBIOONFR2405-07-49 20:00:00 Test Item Value Reference Range Interpretation Comments Platelet (test code = Platelet) 161 133-450 N [facility] CampusIjkwnmiGWYATQDYBY0890-22-86 20:00:00 Test Item Value Reference Range Interpretation Comments MCHC (test code = MCHC) 35.6 32.0-36.0 N [facility] CampusNguthiiPGNAQVSVAC5976-80-15 20:00:00 Test Item Value Reference Range Interpretation Comments RDW (test code = RDW) 12.4 11.5-14.5 N [facility] CampusWxrfjqmXPVRDCIZWS1133-66-82 20:00:00 Test Item Value Reference Range Interpretation Comments MCH (test code = MCH) 30.7 pg 27.0-31.0 N [facility] CampusKtfiotoGDIMANVTBA9654-91-19 20:00:00 Test Item Value Reference Range Interpretation Comments MCV (test code = MCV) 86.1 81.0-99.0 N [facility] CampusQiygddnGRXGAHFUTZ2186-36-00 20:00:00 Test Item Value Reference Range Interpretation Comments Hct (test code = Hct) 33.6 36.0-48.0 L [facility] CampusKebxgrwMSTFQMNGJN0154-52-53 20:00:00 Test Item Value Reference Range Interpretation Comments Hgb (test code = Hgb) 12.0 12.0-16.0 N [facility] CampusKpuchpyRJGERYJHMY2902-73-11 20:00:00 Test Item Value Reference Range Interpretation Comments RBC (test code = RBC) 3.90 4.20-5.40 L [facility] CampusXkaukljLRWPXSYNEJ5643-12-33 20:00:00 Test Item Value Reference Range Interpretation Comments WBC (test code = WBC) 6.6 3.7-10.4 N [facility]manKpilpraUXCWHUJHG4660-93-37 20:00:00 Test Item Value Reference Range Interpretation Comments Lactic Acid Lvl (test code = Lactic 1.6 0.5-2.2 N Acid Lvl) [facility]manHmucdwqBPWISLNAQ3904-07-29 20:00:00 Test Item Value Reference Range Interpretation Comments Lipase Lvl (test code = Lipase Lvl) 125 73-393 N [facility]manKfmkvahARJVLLWSL8851-79-88 20:00:00 Test Item Value Reference Range Interpretation Comments Albumin Lvl (test code = Albumin Lvl) 4.2 3.5-5.0 N [facility]manYdeqzkgVFOMTRURZ0250-74-46 20:00:00 Test Item Value Reference Range Interpretation Comments CO2 (test code = CO2) 23 24-32 L [facility]manXwemsqwYXFQHLFGB1779-50-54 20:00:00 Test Item Value Reference Range Interpretation Comments Chloride Lvl (test code = Chloride Lvl) 98 95-109 N [facility]manFwshcvsICVVPTVVW1861-06-25 20:00:00 Test Item Value Reference Range Interpretation Comments Potassium Lvl (test code = Potassium 3.8 3.5-5.1 N Lvl) [facility]manBcwayiuTYHFEKFRV4118-26-30 20:00:00 Test Item Value Reference Range Interpretation Comments Sodium Lvl (test code = Sodium Lvl) 138 135-145 N [facility]manAzejdawXFSBAEKZE4519-27-46 20:00:00 Test Item Value Reference Range Interpretation Comments Creatinine Lvl (test code = Creatinine 0.7 0.5-1.4 N Lvl) [facility]manBhflenbNWFNBOLIG3464-39-78 20:00:00 Test Item Value Reference Range Interpretation Comments BUN (test code = BUN) 9 7-22 N [facility]manUutsfmpFMHFQWQBU6964-84-82 20:00:00 Test Item Value Reference Range Interpretation Comments Glucose Lvl (test code = Glucose Lvl) 269 70-99 H [facility]manWkghhmgWGJUVHDXG3699-68-59 20:00:00 Test Item Value Reference Range Interpretation Comments B/C Ratio (test code = B/C Ratio) 13 6-25 N [facility]manNjtgsdsQSOXCBXGL6874-30-44 20:00:00 Test Item Value Reference Range Interpretation Comments AGAP (test code = AGAP) 20.8 10.0-20.0 H [facility]manYhjxowuZOTZJQCHV1531-98-44 20:00:00 Test Item Value Reference Range Interpretation Comments Calcium Lvl (test code = Calcium Lvl) 9.3 8.5-10.5 N [facility]manCbizgopAOGAEBDZX0375-35-09 20:00:00 Test Item Value Reference Range Interpretation Comments Total Protein (test code = Total 6.7 6.4-8.4 N Protein) [facility]manHywhwhaIEKYZEVVV4417-08-84 20:00:00 Test Item Value Reference Range Interpretation Comments A/G Ratio (test code = A/G Ratio) 1.7 0.7-1.6 H [facility]manMyomasuZXEYYLGXR9856-23-17 20:00:00 Test Item Value Reference Range Interpretation Comments Globulin (test code = Globulin) 2.5 2.0-4.0 N [facility]manTyodsbhLYQLOMJNG0832-32-14 20:00:00 Test Item Value Reference Range Interpretation Comments AST (test code = AST) 18 See_Comment N [Auto mated message] The system which ge nerated this result transmit rohit reference range : <=37. The reference range was not used to interpr et this result as reji l/abnormal. [facility]manKgxlnjsFUFCJOHLX0626-91-07 20:00:00 Test Item Value Reference Range Interpretation Comments Alk Phos (test code = Alk Phos) 62 39-136 N [facility]manJzsnpxvAAVOISFEI2413-89-73 20:00:00 Test Item Value Reference Range Interpretation Comments ALT (test code = ALT) 32 See_Comment N [Auto mated message] The system which ge nerated this result transmit rohit reference range : <=65. The reference range was not used to interpr et this result as reji l/abnormal. [facility]manQejbgmfWDKGZCXQR6217-66-68 20:00:00 Test Item Value Reference Range Interpretation Comments Bili Total (test code = Bili Total) 0.7 0.2-1.3 N [facility] CampusQfkxbgaPARYFGBRNG6739-02-02 20:00:00 Test Item Value Reference Range Interpretation Comments Anisocyte (test code = 1+ *ABN*(11/28/2011 A Anisocyte) 15:00:00) [facility] CampusGpzntsnAIHUVVWJKP5240-04-74 20:00:00 Test Item Value Reference Range Interpretation Comments Monocytes # (test code 0.1 See_Comment N [Aut omated message] The = Monocytes #) system which generated this result tra nsmitted reference range : <=0.8. The reference r leo was not used to int erpret this result as normal/abnormal . [facility] CampusIhrgdzpMQVXTBMKXA1006-94-22 20:00:00 Test Item Value Reference Range Interpretation Comments Eosinophils # (test code 0.0 See_Comment N [A utomated message] The = Eosinophils #) system whic h generated this result tra nsmitted reference range : <=0.5. The reference r leo was not used to int erpret this result as normal/abnormal . [facility] CampusQtrvzajNBKKIUGFML6647-11-66 20:00:00 Test Item Value Reference Range Interpretation Comments Basophils # (test code 0.0 See_Comment N [Aut omated message] The = Basophils #) system which generated this result tra nsmitted reference range : <=0.2. The reference r leo was not used to int erpret this result as normal/abnormal . [facility] CampusBzhptrcJVFTIGCMDK6810-20-32 20:00:00 Test Item Value Reference Range Interpretation Comments Neut Vac (test code = Slight *ABN*(11/28/2011 A Neut Vac) 15:00:00) [facility] CampusMjpgisiGTYUIIJNLD5319-56-03 20:00:00 Test Item Value Reference Range Interpretation Comments Large Plt (test code = Slight *ABN*(11/28/2011 A Large Plt) 15:00:00) [facility] CampusFcnyypmAGPKFYEBXC4713-17-93 20:00:00 Test Item Value Reference Range Interpretation Comments Segs-Bands # (test code = Segs-Bands #) 5.7 1.5-8.1 N [facility] CampusIgaikbwLYAYHZGRAT6572-51-89 20:00:00 Test Item Value Reference Range Interpretation Comments Lymphocytes # (test code = Lymphocytes 0.8 1.0-5.5 L #) [facility] CampusMmuzyltZUZXUXWFCK5025-74-31 20:00:00 Test Item Value Reference Range Interpretation Comments Eosinophils (test code = 0.2 See_Comment N [A utomated message] The Eosinophils) system which ge nerated this result tra nsmitted reference range : <=4.0. The reference r leo was not used to int erpret this result as normal/abnormal . [facility] CampusTpxwjpjVYAJRKFGEU4724-06-83 20:00:00 Test Item Value Reference Range Interpretation Comments Basophils (test code = 0.0 See_Comment N [Aut omated message] The Basophils) system which ge nerated this result tra nsmitted reference range : <=1.0. The reference r leo was not used to int erpret this result as normal/abnormal . [facility] CampusBvvisrwCVJYBUFBLI6304-82-09 20:00:00 Test Item Value Reference Range Interpretation Comments Monocytes (test code = Monocytes) 1.9 2.0-12.0 L [facility] CampusCjxpkcwQWKHHRNHUG8413-69-18 20:00:00 Test Item Value Reference Range Interpretation Comments Segs (test code = Segs) 86.2 45.0-75.0 H [facility] CampusYwaghvzUOWXZRGAON0536-91-74 20:00:00 Test Item Value Reference Range Interpretation Comments Lymphocytes (test code = Lymphocytes) 11.7 20.0-40.0 L [facility] CampusBcbmaodGEHRHSSLOS4791-06-66 20:00:00 Test Item Value Reference Range Interpretation Comments MPV (test code = MPV) 10.8 7.4-10.4 H [facility] CampusEocmiaeNVFSCOYWUC9726-05-38 20:00:00 Test Item Value Reference Range Interpretation Comments Platelet (test code = Platelet) 161 133-450 N [facility] CampusTginsmhXYSQKTRBYP1281-81-81 20:00:00 Test Item Value Reference Range Interpretation Comments MCHC (test code = MCHC) 35.6 32.0-36.0 N [facility] CampusVtpicceTVOPNFZEUN2825-55-32 20:00:00 Test Item Value Reference Range Interpretation Comments RDW (test code = RDW) 12.4 11.5-14.5 N [facility] CampusAplqeqqHDMIITDTTW0349-41-62 20:00:00 Test Item Value Reference Range Interpretation Comments MCH (test code = MCH) 30.7 pg 27.0-31.0 N [facility] CampusVpkgpkgRIFWGOYORE9470-41-88 20:00:00 Test Item Value Reference Range Interpretation Comments MCV (test code = MCV) 86.1 81.0-99.0 N [facility] CampusJjdyshdILDNZOVGWX2426-38-66 20:00:00 Test Item Value Reference Range Interpretation Comments Hct (test code = Hct) 33.6 36.0-48.0 L [facility] CampusFrbjszoXJLDZUXNSN3992-29-58 20:00:00 Test Item Value Reference Range Interpretation Comments Hgb (test code = Hgb) 12.0 12.0-16.0 N [facility] CampusClgyrijZCGKAEWPWK8824-49-41 20:00:00 Test Item Value Reference Range Interpretation Comments RBC (test code = RBC) 3.90 4.20-5.40 L [facility] CampusZsghgslZLSBJCHAPN6642-90-80 20:00:00 Test Item Value Reference Range Interpretation Comments WBC (test code = WBC) 6.6 3.7-10.4 [facility]RkqkwrcPUUIKBZDA2431-10-40 20:00:00 Test Item Value Reference Range Interpretation Comments Lactic Acid Lvl (test code = Lactic 1.6 0.5-2.2 N Acid Lvl) [facility]YpnhqbgEOMEJKTMY2874-88-11 20:00:00 Test Item Value Reference Range Interpretation Comments Lipase Lvl (test code = Lipase Lvl) 125 73-393 N [facility]TjsitmxVJHKUFCAW3486-25-76 20:00:00 Test Item Value Reference Range Interpretation Comments Albumin Lvl (test code = Albumin Lvl) 4.2 3.5-5.0 N [facility]UkwtkapBNFGESZCB3804-92-01 20:00:00 Test Item Value Reference Range Interpretation Comments CO2 (test code = CO2) 23 24-32 L [facility]SstryieQGXKJXPTD6099-38-25 20:00:00 Test Item Value Reference Range Interpretation Comments Chloride Lvl (test code = Chloride Lvl) 98 95-109 N [facility]manShpeytnMDUFWHVWB3346-02-27 20:00:00 Test Item Value Reference Range Interpretation Comments Potassium Lvl (test code = Potassium 3.8 3.5-5.1 N Lvl) [facility]manLwqrhinWNPENSHNB7821-35-02 20:00:00 Test Item Value Reference Range Interpretation Comments Sodium Lvl (test code = Sodium Lvl) 138 135-145 N [facility]EjnjuvyOIHWAOJED4671-04-31 20:00:00 Test Item Value Reference Range Interpretation Comments Creatinine Lvl (test code = Creatinine 0.7 0.5-1.4 N Lvl) [facility]manKvajtcoXUCULJDTC0476-69-31 20:00:00 Test Item Value Reference Range Interpretation Comments BUN (test code = BUN) 9 7-22 N [facility]TldwllrXAZZJCPOQ6461-20-28 20:00:00 Test Item Value Reference Range Interpretation Comments Glucose Lvl (test code = Glucose Lvl) 269 70-99 H [facility]YjhxklrQKYPRZZIW5506-24-65 20:00:00 Test Item Value Reference Range Interpretation Comments B/C Ratio (test code = B/C Ratio) 13 6-25 N [facility]AbbkfsyUQKVRKVJM2396-01-73 20:00:00 Test Item Value Reference Range Interpretation Comments AGAP (test code = AGAP) 20.8 10.0-20.0 H [facility]manDcwnkkoJHVRROJSW3703-92-62 20:00:00 Test Item Value Reference Range Interpretation Comments Calcium Lvl (test code = Calcium Lvl) 9.3 8.5-10.5 N [facility]manEssghnmKJDNVICDX8545-32-47 20:00:00 Test Item Value Reference Range Interpretation Comments Total Protein (test code = Total 6.7 6.4-8.4 N Protein) [facility]manPgpqavePZLOWTIGI6216-31-37 20:00:00 Test Item Value Reference Range Interpretation Comments A/G Ratio (test code = A/G Ratio) 1.7 0.7-1.6 H [facility]manVypprqfADHBTTCVU0604-28-98 20:00:00 Test Item Value Reference Range Interpretation Comments Globulin (test code = Globulin) 2.5 2.0-4.0 N [facility]manNmzkkldPEVFIVMUZ3191-16-24 20:00:00 Test Item Value Reference Range Interpretation Comments AST (test code = AST) 18 See_Comment N [Auto mated message] The system which ge nerated this result transmit rohit reference range : <=37. The reference range was not used to interpr et this result as reji l/abnormal. [facility]manYjgilziCUFMUASPJ4342-16-26 20:00:00 Test Item Value Reference Range Interpretation Comments Alk Phos (test code = Alk Phos) 62 39-136 N [facility]manPudrqrbKSGVBPKJC5586-46-88 20:00:00 Test Item Value Reference Range Interpretation Comments ALT (test code = ALT) 32 See_Comment N [Auto mated message] The system which ge nerated this result transmit rohit reference range : <=65. The reference range was not used to interpr et this result as reji l/abnormal. [facility]OvbgjidMZTBTQPDT7455-06-94 20:00:00 Test Item Value Reference Range Interpretation Comments Bili Total (test code = Bili Total) 0.7 0.2-1.3 N [facility]ThtgteiZPHLJFCIIX7662-97-85 20:00:00 Test Item Value Reference Range Interpretation Comments Anisocyte (test code = 1+ *ABN*(11/28/2011 A Anisocyte) 15:00:00) [facility] CampusCnbklgoIMPFOKEYYD3794-43-76 20:00:00 Test Item Value Reference Range Interpretation Comments Monocytes # (test code 0.1 See_Comment N [Aut omated message] The = Monocytes #) system which generated this result tra nsmitted reference range : <=0.8. The reference r leo was not used to int erpret this result as normal/abnormal . [facility] CampusRpjnqyoLAJMATEMEU3346-33-73 20:00:00 Test Item Value Reference Range Interpretation Comments Eosinophils # (test code 0.0 See_Comment N [A utomated message] The = Eosinophils #) system whic h generated this result tra nsmitted reference range : <=0.5. The reference r leo was not used to int erpret this result as normal/abnormal . [facility] CampusBucpmfuGUXLMKADGL1676-31-83 20:00:00 Test Item Value Reference Range Interpretation Comments Basophils # (test code 0.0 See_Comment N [Aut omated message] The = Basophils #) system which generated this result tra nsmitted reference range : <=0.2. The reference r leo was not used to int erpret this result as normal/abnormal . [facility] CampusMzhahgeKOYBMRUAXF3270-11-06 20:00:00 Test Item Value Reference Range Interpretation Comments Neut Vac (test code = Slight *ABN*(11/28/2011 A Neut Vac) 15:00:00) [facility] CampusJtceyrfNUIIWQRNXJ8932-09-70 20:00:00 Test Item Value Reference Range Interpretation Comments Large Plt (test code = Slight *ABN*(11/28/2011 A Large Plt) 15:00:00) [facility] CampusZyslkjtMJDTPIVEBW4920-41-37 20:00:00 Test Item Value Reference Range Interpretation Comments Segs-Bands # (test code = Segs-Bands #) 5.7 1.5-8.1 N [facility] CampusAxbzmbsJTFQQOYDZS9004-04-51 20:00:00 Test Item Value Reference Range Interpretation Comments Lymphocytes # (test code = Lymphocytes 0.8 1.0-5.5 L #) [facility] CampusFcifxohQBUNZIZPWW0190-42-40 20:00:00 Test Item Value Reference Range Interpretation Comments Eosinophils (test code = 0.2 See_Comment N [A utomated message] The Eosinophils) system which ge nerated this result tra nsmitted reference range : <=4.0. The reference r leo was not used to int erpret this result as normal/abnormal . [facility] CampusOwysjotUTDDTOXWWZ6460-72-51 20:00:00 Test Item Value Reference Range Interpretation Comments Basophils (test code = 0.0 See_Comment N [Aut omated message] The Basophils) system which ge nerated this result tra nsmitted reference range : <=1.0. The reference r leo was not used to int erpret this result as normal/abnormal . [facility] CampusElhrlzkWOYWBMIOBI4161-06-86 20:00:00 Test Item Value Reference Range Interpretation Comments Monocytes (test code = Monocytes) 1.9 2.0-12.0 L [facility] CampusNnevqxeHWUQGZLPLA6750-19-95 20:00:00 Test Item Value Reference Range Interpretation Comments Segs (test code = Segs) 86.2 45.0-75.0 H [facility] CampusSmjicqwUKQNBXOVWR9163-42-49 20:00:00 Test Item Value Reference Range Interpretation Comments Lymphocytes (test code = Lymphocytes) 11.7 20.0-40.0 L [facility] CampusTmuksdaCRSLVBDAEB5331-41-27 20:00:00 Test Item Value Reference Range Interpretation Comments MPV (test code = MPV) 10.8 7.4-10.4 H [facility] CampusNulrcdnEYGORJHOLR6002-28-70 20:00:00 Test Item Value Reference Range Interpretation Comments Platelet (test code = Platelet) 161 133-450 N [facility] CampusPgwxpjnNQPYLNAAOL8588-19-33 20:00:00 Test Item Value Reference Range Interpretation Comments MCHC (test code = MCHC) 35.6 32.0-36.0 N [facility] CampusUmgtbdhIPQSWTALUK3981-31-72 20:00:00 Test Item Value Reference Range Interpretation Comments RDW (test code = RDW) 12.4 11.5-14.5 N [facility] CampusNdqacppZFQAGLVQNG6607-64-86 20:00:00 Test Item Value Reference Range Interpretation Comments MCH (test code = MCH) 30.7 pg 27.0-31.0 N [facility] CampusFmjbfzoEYMRABJUMN8573-49-30 20:00:00 Test Item Value Reference Range Interpretation Comments MCV (test code = MCV) 86.1 81.0-99.0 N [facility] CampusCmnrymbKMWLESNLYZ1858-12-28 20:00:00 Test Item Value Reference Range Interpretation Comments Hct (test code = Hct) 33.6 36.0-48.0 L [facility] CampusBinmgumVMRATHMBWE4666-69-09 20:00:00 Test Item Value Reference Range Interpretation Comments Hgb (test code = Hgb) 12.0 12.0-16.0 N [facility] CampusFhhmhcbAZTRCJJISY3616-35-22 20:00:00 Test Item Value Reference Range Interpretation Comments RBC (test code = RBC) 3.90 4.20-5.40 L [facility] CampusTcebbxhRRPSQNAUCI9935-78-00 20:00:00 Test Item Value Reference Range Interpretation Comments WBC (test code = WBC) 6.6 3.7-10.4 N [facility]XvwabwoLZQNPDTVL1323-95-65 20:00:00 Test Item Value Reference Range Interpretation Comments Lactic Acid Lvl (test code = Lactic 1.6 0.5-2.2 N Acid Lvl) [facility]manIxeqtjcZLOCHKAHB6449-66-86 20:00:00 Test Item Value Reference Range Interpretation Comments Lipase Lvl (test code = Lipase Lvl) 125 73-393 N [facility]BbdwfwiXEREFTZDW0130-11-06 20:00:00 Test Item Value Reference Range Interpretation Comments Albumin Lvl (test code = Albumin Lvl) 4.2 3.5-5.0 N [facility]MufovnxCXNDVZELB6678-59-89 20:00:00 Test Item Value Reference Range Interpretation Comments CO2 (test code = CO2) 23 24-32 L [facility]GpduofcMSKXPRUSW9771-20-11 20:00:00 Test Item Value Reference Range Interpretation Comments Chloride Lvl (test code = Chloride Lvl) 98 95-109 N [facility]KfpoqfdJRJIPPOTT6252-11-11 20:00:00 Test Item Value Reference Range Interpretation Comments Potassium Lvl (test code = Potassium 3.8 3.5-5.1 N Lvl) [facility]IhgsehqXZKGVPYKO6120-65-05 20:00:00 Test Item Value Reference Range Interpretation Comments Sodium Lvl (test code = Sodium Lvl) 138 135-145 N [facility]manGdaiivrTBKTBEAUA9239-27-96 20:00:00 Test Item Value Reference Range Interpretation Comments Creatinine Lvl (test code = Creatinine 0.7 0.5-1.4 N Lvl) [facility]IkjoqykWIJWXDIXN1746-30-71 20:00:00 Test Item Value Reference Range Interpretation Comments BUN (test code = BUN) 9 7-22 N [facility]SeypbyuEZQTYUZOJ1415-54-24 20:00:00 Test Item Value Reference Range Interpretation Comments Glucose Lvl (test code = Glucose Lvl) 269 70-99 H [facility]KjxffvxKKXASTMWO5229-81-71 20:00:00 Test Item Value Reference Range Interpretation Comments B/C Ratio (test code = B/C Ratio) 13 6-25 N [facility]TbetixcUFVTWQHHE2933-94-09 20:00:00 Test Item Value Reference Range Interpretation Comments AGAP (test code = AGAP) 20.8 10.0-20.0 H [facility]manKijkihcYRTVNAQGY4111-96-11 20:00:00 Test Item Value Reference Range Interpretation Comments Calcium Lvl (test code = Calcium Lvl) 9.3 8.5-10.5 N [facility]manMhuhnyiHOKWFDNQN4661-40-94 20:00:00 Test Item Value Reference Range Interpretation Comments Total Protein (test code = Total 6.7 6.4-8.4 N Protein) [facility]manFikrjnpVGIFJRMKM7579-90-24 20:00:00 Test Item Value Reference Range Interpretation Comments A/G Ratio (test code = A/G Ratio) 1.7 0.7-1.6 H [facility]RgrefgyXNIAKMAQO4957-93-70 20:00:00 Test Item Value Reference Range Interpretation Comments Globulin (test code = Globulin) 2.5 2.0-4.0 N [facility]manWlguzwfNJRWKIRDD2291-14-41 20:00:00 Test Item Value Reference Range Interpretation Comments AST (test code = AST) 18 See_Comment N [Auto mated message] The system which ge nerated this result transmit rohit reference range : <=37. The reference range was not used to interpr et this result as reji l/abnormal. [facility]manVdeoncoVYINUSUTA9019-74-85 20:00:00 Test Item Value Reference Range Interpretation Comments Alk Phos (test code = Alk Phos) 62 39-136 N [facility]manThtxliaQOEUDLRJM0675-31-90 20:00:00 Test Item Value Reference Range Interpretation Comments ALT (test code = ALT) 32 See_Comment N [Auto mated message] The system which ge nerated this result transmit rohit reference range : <=65. The reference range was not used to interpr et this result as reji l/abnormal. [facility]manGwryxamYJNGZLXIT4526-12-95 20:00:00 Test Item Value Reference Range Interpretation Comments Bili Total (test code = Bili Total) 0.7 0.2-1.3 N [facility] CampusGxaiylmZPDYUJMNJJ5257-00-83 20:00:00 Test Item Value Reference Range Interpretation Comments Anisocyte (test code = 1+ *ABN*(11/28/2011 A Anisocyte) 15:00:00) [facility] CampusMmbzjlxZCZVSFQBNN2808-46-30 20:00:00 Test Item Value Reference Range Interpretation Comments Monocytes # (test code 0.1 See_Comment N [Aut omated message] The = Monocytes #) system which generated this result tra nsmitted reference range : <=0.8. The reference r leo was not used to int erpret this result as normal/abnormal . [facility] CampusUgcvixfMILCTEYEAK2427-32-07 20:00:00 Test Item Value Reference Range Interpretation Comments Eosinophils # (test code 0.0 See_Comment N [A utomated message] The = Eosinophils #) system whic h generated this result tra nsmitted reference range : <=0.5. The reference r leo was not used to int erpret this result as normal/abnormal . [facility] CampusHqrzgybFGSDOBLJWR5405-07-78 20:00:00 Test Item Value Reference Range Interpretation Comments Basophils # (test code 0.0 See_Comment N [Aut omated message] The = Basophils #) system which generated this result tra nsmitted reference range : <=0.2. The reference r leo was not used to int erpret this result as normal/abnormal . [facility] CampusXbuexbyWZLKRMOCLS1695-93-54 20:00:00 Test Item Value Reference Range Interpretation Comments Neut Vac (test code = Slight *ABN*(11/28/2011 A Neut Vac) 15:00:00) [facility] CampusOpbzagjIMBGCKZSDE2001-00-93 20:00:00 Test Item Value Reference Range Interpretation Comments Large Plt (test code = Slight *ABN*(11/28/2011 A Large Plt) 15:00:00) [facility] CampusRldqbrtAQBTOUHXMC4160-20-79 20:00:00 Test Item Value Reference Range Interpretation Comments Segs-Bands # (test code = Segs-Bands #) 5.7 1.5-8.1 N [facility] CampusZdufggdWGUJLPYJHJ2286-39-94 20:00:00 Test Item Value Reference Range Interpretation Comments Lymphocytes # (test code = Lymphocytes 0.8 1.0-5.5 L #) [facility] CampusRdqhrzpFZGQVIEUEW0636-06-66 20:00:00 Test Item Value Reference Range Interpretation Comments Eosinophils (test code = 0.2 See_Comment N [A utomated message] The Eosinophils) system which ge nerated this result tra nsmitted reference range : <=4.0. The reference r leo was not used to int erpret this result as normal/abnormal . [facility] CampusEzdwgipLSDDIGMSFM8511-49-87 20:00:00 Test Item Value Reference Range Interpretation Comments Basophils (test code = 0.0 See_Comment N [Aut omated message] The Basophils) system which ge nerated this result tra nsmitted reference range : <=1.0. The reference r leo was not used to int erpret this result as normal/abnormal . [facility] CampusZfyinmxUKAAGXCCCZ9361-33-40 20:00:00 Test Item Value Reference Range Interpretation Comments Monocytes (test code = Monocytes) 1.9 2.0-12.0 L [facility] CampusPdyqagjKJYJZVMTDK5276-20-90 20:00:00 Test Item Value Reference Range Interpretation Comments Segs (test code = Segs) 86.2 45.0-75.0 H [facility] CampusWygxoxiHQYWHRDDXV2370-26-95 20:00:00 Test Item Value Reference Range Interpretation Comments Lymphocytes (test code = Lymphocytes) 11.7 20.0-40.0 L [facility] CampusFzdoikiYKAMKVOFOX1591-86-60 20:00:00 Test Item Value Reference Range Interpretation Comments MPV (test code = MPV) 10.8 7.4-10.4 H [facility] CampusHeqtszfVJWFTBFSMR6513-56-11 20:00:00 Test Item Value Reference Range Interpretation Comments Platelet (test code = Platelet) 161 133-450 N [facility] CampusZwlcwtjCCRCONDJUZ6664-31-82 20:00:00 Test Item Value Reference Range Interpretation Comments MCHC (test code = MCHC) 35.6 32.0-36.0 N [facility] CampusPkskhsqYONEBSHZEA7044-72-14 20:00:00 Test Item Value Reference Range Interpretation Comments RDW (test code = RDW) 12.4 11.5-14.5 N [facility] CampusBmqahujNIXTSAUGXM2638-95-51 20:00:00 Test Item Value Reference Range Interpretation Comments MCH (test code = MCH) 30.7 pg 27.0-31.0 N [facility] CampusUkwcbrkZVUNDVQIRT3878-97-66 20:00:00 Test Item Value Reference Range Interpretation Comments MCV (test code = MCV) 86.1 81.0-99.0 N [facility] CampusDoouhduCFGPHVATUY8780-29-94 20:00:00 Test Item Value Reference Range Interpretation Comments Hct (test code = Hct) 33.6 36.0-48.0 L [facility] CampusDhyhdguFHHPCLUXZD3981-74-58 20:00:00 Test Item Value Reference Range Interpretation Comments Hgb (test code = Hgb) 12.0 12.0-16.0 N [facility] CampusZnrobvzKKQJBIIZEQ7296-08-47 20:00:00 Test Item Value Reference Range Interpretation Comments RBC (test code = RBC) 3.90 4.20-5.40 L [facility] CampusIwbsgvsFKXXLWDAEJ6745-66-65 20:00:00 Test Item Value Reference Range Interpretation Comments WBC (test code = WBC) 6.6 3.7-10.4 N [facility]OijckqhGIXVUPTOE0250-66-31 20:00:00 Test Item Value Reference Range Interpretation Comments Lactic Acid Lvl (test code = Lactic 1.6 0.5-2.2 N Acid Lvl) [facility]manHqpgqsvAOJXQKLOI5589-97-73 20:00:00 Test Item Value Reference Range Interpretation Comments Lipase Lvl (test code = Lipase Lvl) 125 73-393 N [facility]manMohrpnlMERGQVQHL4818-61-14 20:00:00 Test Item Value Reference Range Interpretation Comments Albumin Lvl (test code = Albumin Lvl) 4.2 3.5-5.0 N [facility]manQuurcrmGDILMLZHJ5982-84-87 20:00:00 Test Item Value Reference Range Interpretation Comments CO2 (test code = CO2) 23 24-32 L [facility]manLznpcxiDZNUGFJZU4805-01-71 20:00:00 Test Item Value Reference Range Interpretation Comments Chloride Lvl (test code = Chloride Lvl) 98 95-109 N [facility]XqnvcqxKINYEJXLO9171-98-63 20:00:00 Test Item Value Reference Range Interpretation Comments Potassium Lvl (test code = Potassium 3.8 3.5-5.1 N Lvl) [facility]manPeaplzeMMWTDMEJD1730-89-28 20:00:00 Test Item Value Reference Range Interpretation Comments Sodium Lvl (test code = Sodium Lvl) 138 135-145 N [facility]manWiwjeeyKBDYIOYIL0928-67-40 20:00:00 Test Item Value Reference Range Interpretation Comments Creatinine Lvl (test code = Creatinine 0.7 0.5-1.4 N Lvl) [facility]manFpisimxQIIKTJINQ2469-41-32 20:00:00 Test Item Value Reference Range Interpretation Comments BUN (test code = BUN) 9 7-22 N [facility]manFvialliZEIPFUBCK7862-90-63 20:00:00 Test Item Value Reference Range Interpretation Comments Glucose Lvl (test code = Glucose Lvl) 269 70-99 H [facility]manFqdiphiVXCNFMDOB8553-59-57 20:00:00 Test Item Value Reference Range Interpretation Comments B/C Ratio (test code = B/C Ratio) 13 6-25 N [facility]manAlkdqqkSGZUCWVXM7774-17-62 20:00:00 Test Item Value Reference Range Interpretation Comments AGAP (test code = AGAP) 20.8 10.0-20.0 H [facility]manHggfbtgBRIEORPIH6436-84-06 20:00:00 Test Item Value Reference Range Interpretation Comments Calcium Lvl (test code = Calcium Lvl) 9.3 8.5-10.5 N [facility]manChsvcwkJAQIJNTCW6599-62-05 20:00:00 Test Item Value Reference Range Interpretation Comments Total Protein (test code = Total 6.7 6.4-8.4 N Protein) [facility]manLwisbyoWIPQOWHYJ2164-93-54 20:00:00 Test Item Value Reference Range Interpretation Comments A/G Ratio (test code = A/G Ratio) 1.7 0.7-1.6 H [facility]manZcslwobJEOKHAZZE7927-28-89 20:00:00 Test Item Value Reference Range Interpretation Comments Globulin (test code = Globulin) 2.5 2.0-4.0 N [facility]manNiqhnicCAGDIVAQS2173-96-61 20:00:00 Test Item Value Reference Range Interpretation Comments AST (test code = AST) 18 See_Comment N [Auto mated message] The system which ge nerated this result transmit rohit reference range : <=37. The reference range was not used to interpr et this result as reji l/abnormal. [facility]manVtnpfjnGXOGBJYQR0331-80-06 20:00:00 Test Item Value Reference Range Interpretation Comments Alk Phos (test code = Alk Phos) 62 39-136 N [facility]manWmzwdzgEZSYJAXAP7465-18-77 20:00:00 Test Item Value Reference Range Interpretation Comments ALT (test code = ALT) 32 See_Comment N [Auto mated message] The system which ge nerated this result transmit rohit reference range : <=65. The reference range was not used to interpr et this result as reji l/abnormal. [facility]manZkwcogeDJCSKAYFP0611-82-98 20:00:00 Test Item Value Reference Range Interpretation Comments Bili Total (test code = Bili Total) 0.7 0.2-1.3 N [facility] CampusIddlxxmJSUDTIWNBY2368-86-02 20:00:00 Test Item Value Reference Range Interpretation Comments Anisocyte (test code = 1+ *ABN*(11/28/2011 A Anisocyte) 15:00:00) [facility] CampusDztuetoUYCJSXLNZW8253-03-10 20:00:00 Test Item Value Reference Range Interpretation Comments Monocytes # (test code 0.1 See_Comment N [Aut omated message] The = Monocytes #) system which generated this result tra nsmitted reference range : <=0.8. The reference r leo was not used to int erpret this result as normal/abnormal . [facility] CampusZhdahpuMYOUGSVDQK7151-59-51 20:00:00 Test Item Value Reference Range Interpretation Comments Eosinophils # (test code 0.0 See_Comment N [A utomated message] The = Eosinophils #) system whic h generated this result tra nsmitted reference range : <=0.5. The reference r leo was not used to int erpret this result as normal/abnormal . [facility] CampusIhfzrrzXZYLHJWFAV5030-63-46 20:00:00 Test Item Value Reference Range Interpretation Comments Basophils # (test code 0.0 See_Comment N [Aut omated message] The = Basophils #) system which generated this result tra nsmitted reference range : <=0.2. The reference r leo was not used to int erpret this result as normal/abnormal . [facility] CampusMekpflbCCLPBIZTNO9032-23-75 20:00:00 Test Item Value Reference Range Interpretation Comments Neut Vac (test code = Slight *ABN*(11/28/2011 A Neut Vac) 15:00:00) [facility] CampusMiizlshAJQSQIKIXJ3783-49-96 20:00:00 Test Item Value Reference Range Interpretation Comments Large Plt (test code = Slight *ABN*(11/28/2011 A Large Plt) 15:00:00) [facility] CampusOtuofeqDITZGUAPBD4722-70-86 20:00:00 Test Item Value Reference Range Interpretation Comments Segs-Bands # (test code = Segs-Bands #) 5.7 1.5-8.1 N [facility] CampusSkhqgbhDQFANQBCLZ3827-31-15 20:00:00 Test Item Value Reference Range Interpretation Comments Lymphocytes # (test code = Lymphocytes 0.8 1.0-5.5 L #) [facility] CampusThzvtipOFGHEOFXNS4912-72-03 20:00:00 Test Item Value Reference Range Interpretation Comments Eosinophils (test code = 0.2 See_Comment N [A utomated message] The Eosinophils) system which ge nerated this result tra nsmitted reference range : <=4.0. The reference r leo was not used to int erpret this result as normal/abnormal . [facility] CampusAyjxcloZQKOYEVDJO6008-17-00 20:00:00 Test Item Value Reference Range Interpretation Comments Basophils (test code = 0.0 See_Comment N [Aut omated message] The Basophils) system which ge nerated this result tra nsmitted reference range : <=1.0. The reference r leo was not used to int erpret this result as normal/abnormal . [facility] CampusUwyykblQIXEZTFATT3079-97-59 20:00:00 Test Item Value Reference Range Interpretation Comments Monocytes (test code = Monocytes) 1.9 2.0-12.0 L [facility] CampusGkjzqwdUMNOTXMKGH8683-38-28 20:00:00 Test Item Value Reference Range Interpretation Comments Segs (test code = Segs) 86.2 45.0-75.0 H [facility] CampusOdfmzlkASPAULLHIU3758-33-04 20:00:00 Test Item Value Reference Range Interpretation Comments Lymphocytes (test code = Lymphocytes) 11.7 20.0-40.0 L [facility]QgekifpNFDWVSZEOJ2136-44-35 20:00:00 Test Item Value Reference Range Interpretation Comments MPV (test code = MPV) 10.8 7.4-10.4 H [facility] CampusUhbpnegHGOBLLXJPO2809-81-61 20:00:00 Test Item Value Reference Range Interpretation Comments Platelet (test code = Platelet) 161 133-450 N [facility] CampusFhvkvvqEWMUENFMKP4236-50-45 20:00:00 Test Item Value Reference Range Interpretation Comments MCHC (test code = MCHC) 35.6 32.0-36.0 N [facility] CampusZlzscabGNQAVJSNZL0793-96-37 20:00:00 Test Item Value Reference Range Interpretation Comments RDW (test code = RDW) 12.4 11.5-14.5 N [facility] CampusHwuhzbcFVGIKGQOUK9942-24-30 20:00:00 Test Item Value Reference Range Interpretation Comments MCH (test code = MCH) 30.7 pg 27.0-31.0 N [facility] CampusUycaiwdJXDPCMGPKY8269-01-70 20:00:00 Test Item Value Reference Range Interpretation Comments MCV (test code = MCV) 86.1 81.0-99.0 N [facility] CampusQlwfgitPNQLCTUTRD5215-92-05 20:00:00 Test Item Value Reference Range Interpretation Comments Hct (test code = Hct) 33.6 36.0-48.0 L [facility] CampusWrecjknPTPXBNJXNT8402-50-08 20:00:00 Test Item Value Reference Range Interpretation Comments Hgb (test code = Hgb) 12.0 12.0-16.0 N [facility] CampusFqixyguRGHDHRLLWT4864-91-91 20:00:00 Test Item Value Reference Range Interpretation Comments RBC (test code = RBC) 3.90 4.20-5.40 L [facility] CampusCptccaoUFCQFXMJGV9218-22-28 20:00:00 Test Item Value Reference Range Interpretation Comments WBC (test code = WBC) 6.6 3.7-10.4 N [facility]UkefykbZPSAXALNA9508-40-44 19:51:00 Test Item Value Reference Range Interpretation Comments UDS Note (test code = See Note UDS Note) 5*NA*(11/28/2011 14:51:00) [facility]NuupfrmZYFGQXHIU3651-91-03 19:51:00 Test Item Value Reference Range Interpretation Comments U Phencyc Scr (test Negative code = U Phencyc Scr) *NA*(11/28/2011 14:51:00) [facility]AtbocdnTKRXEMPDM6467-71-41 19:51:00 Test Item Value Reference Range Interpretation Comments U Kelly Scr (test code Negative *NA*(11/28/2011 = U Kelly Scr) 14:51:00) [facility]QqwgiaiXWEDUFHMX8425-90-76 19:51:00 Test Item Value Reference Range Interpretation Comments U Amph Scr (test code Negative *NA*(11/28/2011 = U Amph Scr) 14:51:00) [facility]manZeduqfgHWNIGQWQW6786-38-77 19:51:00 Test Item Value Reference Range Interpretation Comments U Opiate Scr (test Negative code = U Opiate Scr) *NA*(11/28/2011 14:51:00) [facility]manTziysbsTRWAYJKYN0706-38-55 19:51:00 Test Item Value Reference Range Interpretation Comments U Cocaine Scr (test Negative code = U Cocaine Scr) *NA*(11/28/2011 14:51:00) [facility]TaycdlgNDUGJDSHX0057-09-21 19:51:00 Test Item Value Reference Range Interpretation Comments U Cannab Scr (test Negative code = U Cannab Scr) *NA*(11/28/2011 14:51:00) [facility]FnrmopsFMXALAFTJ0451-05-44 19:51:00 Test Item Value Reference Range Interpretation Comments U Benzodia Scr (test Negative code = U Benzodia Scr) *NA*(11/28/2011 14:51:00) [facility]manBmpwoikUVHWYUFEJ6862-09-07 19:51:00 Test Item Value Reference Range Interpretation Comments UDS Note (test code = See Note UDS Note) 5*NA*(11/28/2011 14:51:00) [facility]manLhlistyGIQBFPGXN7470-05-77 19:51:00 Test Item Value Reference Range Interpretation Comments U Phencyc Scr (test Negative code = U Phencyc Scr) *NA*(11/28/2011 14:51:00) [facility]AarxtpwSUILCCWLD2129-87-87 19:51:00 Test Item Value Reference Range Interpretation Comments U Kelly Scr (test code Negative *NA*(11/28/2011 = U Kelly Scr) 14:51:00) [facility]manRtonkpgPKZROOBLE2289-58-65 19:51:00 Test Item Value Reference Range Interpretation Comments U Amph Scr (test code Negative *NA*(11/28/2011 = U Amph Scr) 14:51:00) [facility]manVziucgyDAOPAWUPQ2903-12-44 19:51:00 Test Item Value Reference Range Interpretation Comments U Opiate Scr (test Negative code = U Opiate Scr) *NA*(11/28/2011 14:51:00) [facility]manRwhlkueGIRIDWWGB6580-04-63 19:51:00 Test Item Value Reference Range Interpretation Comments U Cocaine Scr (test Negative code = U Cocaine Scr) *NA*(11/28/2011 14:51:00) [facility]manAehtiluELQWZBJBU5894-60-62 19:51:00 Test Item Value Reference Range Interpretation Comments U Cannab Scr (test Negative code = U Cannab Scr) *NA*(11/28/2011 14:51:00) [facility]manZtmusjrRNAHFVPUC4365-02-12 19:51:00 Test Item Value Reference Range Interpretation Comments U Benzodia Scr (test Negative code = U Benzodia Scr) *NA*(11/28/2011 14:51:00) [facility]YwmszwpOLQYNKKQA3391-12-08 19:51:00 Test Item Value Reference Range Interpretation Comments UDS Note (test code = See Note UDS Note) 5*NA*(11/28/2011 14:51:00) [facility]manRgsiiegPJBVGXNEO7807-14-69 19:51:00 Test Item Value Reference Range Interpretation Comments U Phencyc Scr (test Negative code = U Phencyc Scr) *NA*(11/28/2011 14:51:00) [facility]manMxupcehXYRCTYYTQ5546-70-47 19:51:00 Test Item Value Reference Range Interpretation Comments U Kelly Scr (test code Negative *NA*(11/28/2011 = U Kelly Scr) 14:51:00) [facility]manNgngqywAGUUWRCDX8541-60-80 19:51:00 Test Item Value Reference Range Interpretation Comments U Amph Scr (test code Negative *NA*(11/28/2011 = U Amph Scr) 14:51:00) [facility]SbcllgtHKEPMKFQL4855-82-39 19:51:00 Test Item Value Reference Range Interpretation Comments U Opiate Scr (test Negative code = U Opiate Scr) *NA*(11/28/2011 14:51:00) [facility]manZwiqtfuLWDSVZNJP4015-23-71 19:51:00 Test Item Value Reference Range Interpretation Comments U Cocaine Scr (test Negative code = U Cocaine Scr) *NA*(11/28/2011 14:51:00) [facility]manJnuswynAKYNJMOSY0649-18-77 19:51:00 Test Item Value Reference Range Interpretation Comments U Cannab Scr (test Negative code = U Cannab Scr) *NA*(11/28/2011 14:51:00) [facility]manUnuqbteGQNSSYAGB3924-22-91 19:51:00 Test Item Value Reference Range Interpretation Comments U Benzodia Scr (test Negative code = U Benzodia Scr) *NA*(11/28/2011 14:51:00) [facility]manNymbkdsTDMSMGTDT7486-42-60 19:51:00 Test Item Value Reference Range Interpretation Comments UDS Note (test code = See Note UDS Note) 5*NA*(11/28/2011 14:51:00) [facility]manZtzqfheDXYTJQNOD8509-70-51 19:51:00 Test Item Value Reference Range Interpretation Comments U Phencyc Scr (test Negative code = U Phencyc Scr) *NA*(11/28/2011 14:51:00) [facility]manKqbspykOKNGYCDJE0177-73-10 19:51:00 Test Item Value Reference Range Interpretation Comments U Kelly Scr (test code Negative *NA*(11/28/2011 = U Kelly Scr) 14:51:00) [facility]manXxyyhkxJDCRGZSWM9257-10-39 19:51:00 Test Item Value Reference Range Interpretation Comments U Amph Scr (test code Negative *NA*(11/28/2011 = U Amph Scr) 14:51:00) [facility]manEzzcutsCGQKRGTUN5368-40-22 19:51:00 Test Item Value Reference Range Interpretation Comments U Opiate Scr (test Negative code = U Opiate Scr) *NA*(11/28/2011 14:51:00) [facility]manDhmcpznUNDRCQRTK2118-49-39 19:51:00 Test Item Value Reference Range Interpretation Comments U Cocaine Scr (test Negative code = U Cocaine Scr) *NA*(11/28/2011 14:51:00) [facility]XsmnoljZRYBDQHOH4779-57-54 19:51:00 Test Item Value Reference Range Interpretation Comments U Cannab Scr (test Negative code = U Cannab Scr) *NA*(11/28/2011 14:51:00) [facility]manSprywyaFKWGAOJNE2724-59-90 19:51:00 Test Item Value Reference Range Interpretation Comments U Benzodia Scr (test Negative code = U Benzodia Scr) *NA*(11/28/2011 14:51:00) [facility]manKrmxwwgBHTRKFADR2373-52-53 19:51:00 Test Item Value Reference Range Interpretation Comments UDS Note (test code = See Note UDS Note) 5*NA*(11/28/2011 14:51:00) [facility]manZhqqllqTFLJLMJJK2678-08-45 19:51:00 Test Item Value Reference Range Interpretation Comments U Phencyc Scr (test Negative code = U Phencyc Scr) *NA*(11/28/2011 14:51:00) [facility]manHxpzinmHPTOEOLMB9334-75-71 19:51:00 Test Item Value Reference Range Interpretation Comments U Kelly Scr (test code Negative *NA*(11/28/2011 = U Kelly Scr) 14:51:00) [facility]manWkyanpkRBVXWONLO2262-48-85 19:51:00 Test Item Value Reference Range Interpretation Comments U Amph Scr (test code Negative *NA*(11/28/2011 = U Amph Scr) 14:51:00) [facility]manHogkkseXLZGVWKUK6546-41-18 19:51:00 Test Item Value Reference Range Interpretation Comments U Opiate Scr (test Negative code = U Opiate Scr) *NA*(11/28/2011 14:51:00) [facility]manEkrjzjtKEDIHHAIV7834-36-02 19:51:00 Test Item Value Reference Range Interpretation Comments U Cocaine Scr (test Negative code = U Cocaine Scr) *NA*(11/28/2011 14:51:00) [facility]manDudsyzuQCKCKJMND0502-44-90 19:51:00 Test Item Value Reference Range Interpretation Comments U Cannab Scr (test Negative code = U Cannab Scr) *NA*(11/28/2011 14:51:00) [facility]manNpfqmsiBVJHCCKLO5896-64-38 19:51:00 Test Item Value Reference Range Interpretation Comments U Benzodia Scr (test Negative code = U Benzodia Scr) *NA*(11/28/2011 14:51:00) [facility] GLUCOSE [id number] 16:20:00 Test Item Value Reference Range Interpretation Comments Comment1 (test code = Comment1) Ravi RN/ [facility] GLUCOSE [id number] 16:20:00 Test Item Value Reference Range Interpretation Comments Gluc POC Lifscn (test code = Gluc POC 328 70-99 H Lifscn) [facility] GLUCOSE [id number] 16:20:00 Test Item Value Reference Range Interpretation Comments Comment1 (test code = Comment1) Notify RN/ [facility] GLUCOSE [id number] 16:20:00 Test Item Value Reference Range Interpretation Comments Gluc POC Lifscn (test code = Gluc POC 328 70-99 H Lifscn) [facility] GLUCOSE [id number] 16:20:00 Test Item Value Reference Range Interpretation Comments Comment1 (test code = Comment1) Notify RN/ [facility] GLUCOSE [id number] 16:20:00 Test Item Value Reference Range Interpretation Comments Gluc POC Lifscn (test code = Gluc POC 328 70-99 H Lifscn) [facility] GLUCOSE [id number] 16:20:00 Test Item Value Reference Range Interpretation Comments Comment1 (test code = Comment1) Notify RN/ [facility] GLUCOSE [id number] 16:20:00 Test Item Value Reference Range Interpretation Comments Gluc POC Lifscn (test code = Gluc POC 328 70-99 H Lifscn) [facility] GLUCOSE [id number] 16:20:00 Test Item Value Reference Range Interpretation Comments Comment1 (test code = Comment1) Notify RN/ [facility] GLUCOSE [id number] 16:20:00 Test Item Value Reference Range Interpretation Comments Gluc POC Lifscn (test code = Gluc POC 328 70-99 H Lifscn) [facility]OcsidoxRHOMKPDLW6980-74-30 15:30:00 Test Item Value Reference Range Interpretation Comments U Preg (test code = U Negative (09/18/2011 N Preg) 10:30:00) [facility] HospitalFwagjftWRBEFQOKSB0222-57-10 15:30:00 Test Item Value Reference Range Interpretation Comments UA WBC (test code = UA None Seen (09/18/2011 N WBC) 10:30:00) [facility] HospitalHvprzjnJONGPUNFCM4303-92-26 15:30:00 Test Item Value Reference Range Interpretation Comments UA RBC (test None Seen See_Comment N [Automated mes pastor] code = UA RBC) (09/18/2011 The system ich 10:30:00) generated this result transmitted ref erence range: <=2. The reference range was not used to int erpret this result as normal/abnormal . [facility]EngcxrqROWOPGWJVU8143-01-44 15:30:00 Test Item Value Reference Range Interpretation Comments UA Bacteria (test code = None Seen (09/18/2011 N UA Bacteria) 10:30:00) [facility] StationGpetfkoFTDUIWXPMC4649-63-97 15:30:00 Test Item Value Reference Range Interpretation Comments UA Amorph Destiny (test Few /HPF A code = UA Amorph Destiny) *ABN*(09/18/2011 10:30:00) [facility] WestKnlizmsDJTBBPWBGW5222-21-19 15:30:00 Test Item Value Reference Range Interpretation Comments Micro? (test code = Performed (09/18/2011 N Micro?) 10:30:00) [facility] StationCexwsdvDFIHHXRVSD7338-71-40 15:30:00 Test Item Value Reference Range Interpretation Comments UA Sq Epi (test code = Rare /LPF (09/18/2011 N UA Sq Epi) 10:30:00) [facility] WestEjozsyeQFNPSQQZLR7256-24-39 15:30:00 Test Item Value Reference Range Interpretation Comments UA Ketones (test code = 15 mg/dL A UA Ketones) *ABN*(09/18/2011 10:30:00) [facility] WestSvqntrlIEPEOPOGKJ4108-78-35 15:30:00 Test Item Value Reference Range Interpretation Comments UA Glucose (test code = >=1000 mg/dL A UA Glucose) *ABN*(09/18/2011 10:30:00) [facility] WestYpbmstwUWIGSHIEDB5898-64-59 15:30:00 Test Item Value Reference Range Interpretation Comments UA Protein (test code = Trace A UA Protein) *ABN*(09/18/2011 10:30:00) [facility] WestPghxrnzAYSILTZKCN9456-11-46 15:30:00 Test Item Value Reference Range Interpretation Comments UA Urobilinogen (test code = UA 0.2 0.1-1.0 N Urobilinogen) [facility] WestUrvykpvWOKURDOWIX1160-89-97 15:30:00 Test Item Value Reference Range Interpretation Comments UA Blood (test code = Negative (09/18/2011 N UA Blood) 10:30:00) [facility] WestWchzpccXEMFPMGLLI2919-07-73 15:30:00 Test Item Value Reference Range Interpretation Comments UA Bili (test code = Negative *NA*(09/18/2011 UA Bili) 10:30:00) [facility] FrnhfpvXJANQTXFCL9413-74-81 15:30:00 Test Item Value Reference Range Interpretation Comments UA Leuk Est (test Negative (09/18/2011 N code = UA Leuk Est) 10:30:00) [facility]ZargamoCEKQOJUFVH7537-68-62 15:30:00 Test Item Value Reference Range Interpretation Comments UA Nitrite (test code Negative (09/18/2011 N = UA Nitrite) 10:30:00) [facility] HospitalOubwuogXGKQOHAWJM8092-73-31 15:30:00 Test Item Value Reference Range Interpretation Comments UA pH (test code = UA pH) 7.5 1 5.0-8.0 N [facility] HospitalZoiqgieJAEVWFEHNE1293-30-88 15:30:00 Test Item Value Reference Range Interpretation Comments UA Spec Grav (test code = UA Spec 1.010 1 N Grav) [facility] HospitalMewhqpcABIKFSTJXT5027-78-46 15:30:00 Test Item Value Reference Range Interpretation Comments UA Turbidity (test code Slight Cloudy N = UA Turbidity) (09/18/2011 10:30:00) [facility] HospitalInvxuvgKAICAEHIBP1577-63-72 15:30:00 Test Item Value Reference Range Interpretation Comments UA Color (test code = Yellow *NA*(09/18/2011 UA Color) 10:30:00) [facility] HospitalNwbehvfRYEYBMLFL2625-65-33 15:30:00 Test Item Value Reference Range Interpretation Comments U Preg (test code = U Negative (09/18/2011 N Preg) 10:30:00) [facility] HospitalRmpnkxcKORLATVCFZ3890-57-76 15:30:00 Test Item Value Reference Range Interpretation Comments UA WBC (test code = UA None Seen (09/18/2011 N WBC) 10:30:00) [facility] HospitalFtmwrecMLKCWUFNXJ7688-35-83 15:30:00 Test Item Value Reference Range Interpretation Comments UA RBC (test None Seen See_Comment N [Automated mes pastor] code = UA RBC) (09/18/2011 The system wh ich 10:30:00) generated this result transmitted ref erence range: <=2. The reference range was not used to int erpret this result as normal/abnormal . [facility] HospitalWgqtwjjYUKEKBUKEU7060-24-65 15:30:00 Test Item Value Reference Range Interpretation Comments UA Bacteria (test code = None Seen (09/18/2011 N UA Bacteria) 10:30:00) [facility] WestTmkaeocSUEXLGXJQM2523-17-72 15:30:00 Test Item Value Reference Range Interpretation Comments UA Amorph Destiny (test Few /HPF A code = UA Amorph Destiny) *ABN*(09/18/2011 10:30:00) [facility] StationKactecsSAHNQZARMS4653-46-21 15:30:00 Test Item Value Reference Range Interpretation Comments Micro? (test code = Performed (09/18/2011 N Micro?) 10:30:00) [facility] StationWxemogtCJUKPXOSVO3515-77-84 15:30:00 Test Item Value Reference Range Interpretation Comments UA Sq Epi (test code = Rare /LPF (09/18/2011 N UA Sq Epi) 10:30:00) [facility] StationUqxokqtVSJFNRIBQP2059-92-94 15:30:00 Test Item Value Reference Range Interpretation Comments UA Ketones (test code = 15 mg/dL A UA Ketones) *ABN*(09/18/2011 10:30:00) [facility] StationUreyayqGFJXVPRRBK1936-15-73 15:30:00 Test Item Value Reference Range Interpretation Comments UA Glucose (test code = >=1000 mg/dL A UA Glucose) *ABN*(09/18/2011 10:30:00) [facility] StationHxaintkEGYUPZYZFM7847-05-63 15:30:00 Test Item Value Reference Range Interpretation Comments UA Protein (test code = Trace A UA Protein) *ABN*(09/18/2011 10:30:00) [facility] StationVnigatcXDCFHTFIXD9541-67-22 15:30:00 Test Item Value Reference Range Interpretation Comments UA Urobilinogen (test code = UA 0.2 0.1-1.0 N Urobilinogen) [facility] WestZocyfsqMOPRIIGNQF7752-44-64 15:30:00 Test Item Value Reference Range Interpretation Comments UA Blood (test code = Negative (09/18/2011 N UA Blood) 10:30:00) [facility] WestRlfqnjzVWFZTSHTQO8156-12-24 15:30:00 Test Item Value Reference Range Interpretation Comments UA Bili (test code = Negative *NA*(09/18/2011 UA Bili) 10:30:00) [facility] WestLbwogoxVWHLENQNUL8007-00-03 15:30:00 Test Item Value Reference Range Interpretation Comments UA Leuk Est (test Negative (09/18/2011 N code = UA Leuk Est) 10:30:00) [facility] HospitalPdllmnbPIREZLLVQX1638-53-07 15:30:00 Test Item Value Reference Range Interpretation Comments UA Nitrite (test code Negative (09/18/2011 N = UA Nitrite) 10:30:00) [facility] HospitalSryrgyyAOQTKBIQIV7275-56-67 15:30:00 Test Item Value Reference Range Interpretation Comments UA pH (test code = UA pH) 7.5 1 5.0-8.0 N [facility] HospitalGnbtjksDRDDSJMURV8650-09-45 15:30:00 Test Item Value Reference Range Interpretation Comments UA Spec Grav (test code = UA Spec 1.010 1 N Grav) [facility] WestFdlgtbvMJPRRHSZHM8408-85-06 15:30:00 Test Item Value Reference Range Interpretation Comments UA Turbidity (test code Slight Cloudy N = UA Turbidity) (09/18/2011 10:30:00) [facility] WestRsakenjIKJWUYIZFY8289-65-73 15:30:00 Test Item Value Reference Range Interpretation Comments UA Color (test code = Yellow *NA*(09/18/2011 UA Color) 10:30:00) [facility] HospitalAfedzkpIFPLMSPCV6391-16-19 15:30:00 Test Item Value Reference Range Interpretation Comments U Preg (test code = U Negative (09/18/2011 N Preg) 10:30:00) [facility] HospitalCmhiqznBBGSRMPWJY2134-72-58 15:30:00 Test Item Value Reference Range Interpretation Comments UA WBC (test code = UA None Seen (09/18/2011 N WBC) 10:30:00) [facility] HospitalDwcuqbgQXMYGDLXER5521-67-41 15:30:00 Test Item Value Reference Range Interpretation Comments UA RBC (test None Seen See_Comment N [Automated mes pastor] code = UA RBC) (09/18/2011 The system ich 10:30:00) generated this result transmitted ref erence range: <=2. The reference range was not used to int erpret this result as normal/abnormal . [facility] HospitalMxqgueqWUYQOUVOTV6839-58-58 15:30:00 Test Item Value Reference Range Interpretation Comments UA Bacteria (test code = None Seen (09/18/2011 N UA Bacteria) 10:30:00) [facility] WestOgxdaeyNIONNYEMKX3031-38-16 15:30:00 Test Item Value Reference Range Interpretation Comments UA Amorph Destiny (test Few /HPF A code = UA Amorph Destiny) *ABN*(09/18/2011 10:30:00) [facility] StationTfytxidPKJNPSYEVN6337-80-51 15:30:00 Test Item Value Reference Range Interpretation Comments Micro? (test code = Performed (09/18/2011 N Micro?) 10:30:00) [facility] StationUoultovRCWFMWUSGQ0153-15-68 15:30:00 Test Item Value Reference Range Interpretation Comments UA Sq Epi (test code = Rare /LPF (09/18/2011 N UA Sq Epi) 10:30:00) [facility] StationVkhfwelTKATSCLVHV1476-24-48 15:30:00 Test Item Value Reference Range Interpretation Comments UA Ketones (test code = 15 mg/dL A UA Ketones) *ABN*(09/18/2011 10:30:00) [facility] StationDjulqrlEONGUEYKME9537-01-01 15:30:00 Test Item Value Reference Range Interpretation Comments UA Glucose (test code = >=1000 mg/dL A UA Glucose) *ABN*(09/18/2011 10:30:00) [facility] StationUptoggiSXPGHJBJXV3851-28-64 15:30:00 Test Item Value Reference Range Interpretation Comments UA Protein (test code = Trace A UA Protein) *ABN*(09/18/2011 10:30:00) [facility] StationMzcvskaDWEILBRGYO2359-87-69 15:30:00 Test Item Value Reference Range Interpretation Comments UA Urobilinogen (test code = UA 0.2 0.1-1.0 N Urobilinogen) [facility] StationEkljcgvOVTYWISJPT0625-99-92 15:30:00 Test Item Value Reference Range Interpretation Comments UA Blood (test code = Negative (09/18/2011 N UA Blood) 10:30:00) [facility] WestRshpvnyLYYFVOISMJ6894-51-97 15:30:00 Test Item Value Reference Range Interpretation Comments UA Bili (test code = Negative *NA*(09/18/2011 UA Bili) 10:30:00) [facility] WestMtebyxdCDPDTQZZKV1945-51-49 15:30:00 Test Item Value Reference Range Interpretation Comments UA Leuk Est (test Negative (09/18/2011 N code = UA Leuk Est) 10:30:00) [facility] HospitalIohhnexWJTIZJYHRX1212-09-24 15:30:00 Test Item Value Reference Range Interpretation Comments UA Nitrite (test code Negative (09/18/2011 N = UA Nitrite) 10:30:00) [facility] HospitalDmsxxnyOOZQPXAWOT5166-67-60 15:30:00 Test Item Value Reference Range Interpretation Comments UA pH (test code = UA pH) 7.5 1 5.0-8.0 N [facility] HospitalWznovluRCFXORWHIM5963-17-45 15:30:00 Test Item Value Reference Range Interpretation Comments UA Spec Grav (test code = UA Spec 1.010 1 N Grav) [facility] WestAaximrzMTJTVOSNAS9366-90-21 15:30:00 Test Item Value Reference Range Interpretation Comments UA Turbidity (test code Slight Cloudy N = UA Turbidity) (09/18/2011 10:30:00) [facility] WestBikixmyTFMJVXXXWQ4353-55-58 15:30:00 Test Item Value Reference Range Interpretation Comments UA Color (test code = Yellow *NA*(09/18/2011 UA Color) 10:30:00) [facility] HospitalXpdyafyWBLISWRIL9192-76-12 15:30:00 Test Item Value Reference Range Interpretation Comments U Preg (test code = U Negative (09/18/2011 N Preg) 10:30:00) [facility] HospitalVaiwwjeDJRIFKFXYM9532-44-26 15:30:00 Test Item Value Reference Range Interpretation Comments UA WBC (test code = UA None Seen (09/18/2011 N WBC) 10:30:00) [facility] HospitalSpqxeypRHEZKMKTNY2396-93-56 15:30:00 Test Item Value Reference Range Interpretation Comments UA RBC (test None Seen See_Comment N [Automated mes pastor] code = UA RBC) (09/18/2011 The system ich 10:30:00) generated this result transmitted ref erence range: <=2. The reference range was not used to int erpret this result as normal/abnormal . [facility] WestJuctkkjVCXYZVHGJC7561-17-94 15:30:00 Test Item Value Reference Range Interpretation Comments UA Bacteria (test code = None Seen (09/18/2011 N UA Bacteria) 10:30:00) [facility] WestWgktnoiSWLEULMSQV6451-80-53 15:30:00 Test Item Value Reference Range Interpretation Comments UA Amorph Destiny (test Few /HPF A code = UA Amorph Destiny) *ABN*(09/18/2011 10:30:00) [facility] WestUcaxgdnSGRKGQPCGZ2835-05-64 15:30:00 Test Item Value Reference Range Interpretation Comments Micro? (test code = Performed (09/18/2011 N Micro?) 10:30:00) [facility] WestEexzzrfVQXFYUBGCK6410-79-34 15:30:00 Test Item Value Reference Range Interpretation Comments UA Sq Epi (test code = Rare /LPF (09/18/2011 N UA Sq Epi) 10:30:00) [facility]VdoujnpEAGTTXTHFN2245-96-68 15:30:00 Test Item Value Reference Range Interpretation Comments UA Ketones (test code = 15 mg/dL A UA Ketones) *ABN*(09/18/2011 10:30:00) [facility] StationAenozirWHKFYCDZRK5358-10-88 15:30:00 Test Item Value Reference Range Interpretation Comments UA Glucose (test code = >=1000 mg/dL A UA Glucose) *ABN*(09/18/2011 10:30:00) [facility]HhppyaaUOXWHZUZUP1394-45-59 15:30:00 Test Item Value Reference Range Interpretation Comments UA Protein (test code = Trace A UA Protein) *ABN*(09/18/2011 10:30:00) [facility] StationXexacpiKRIMVGPRYC2346-29-31 15:30:00 Test Item Value Reference Range Interpretation Comments UA Urobilinogen (test code = UA 0.2 0.1-1.0 N Urobilinogen) [facility] WestKuoqnbrDQXNWHMYLZ8756-80-93 15:30:00 Test Item Value Reference Range Interpretation Comments UA Blood (test code = Negative (09/18/2011 N UA Blood) 10:30:00) [facility] WestVrjxdlnWWJUEHXQKR2786-41-08 15:30:00 Test Item Value Reference Range Interpretation Comments UA Bili (test code = Negative *NA*(09/18/2011 UA Bili) 10:30:00) [facility] WestDxyiyuyGIMSUOYUHE4492-75-99 15:30:00 Test Item Value Reference Range Interpretation Comments UA Leuk Est (test Negative (09/18/2011 N code = UA Leuk Est) 10:30:00) [facility]DjvvvgwSFMGAOIMDF6098-27-99 15:30:00 Test Item Value Reference Range Interpretation Comments UA Nitrite (test code Negative (09/18/2011 N = UA Nitrite) 10:30:00) [facility]pv[facility]ZHRIZXTROA2409-20-03 15:30:00 Test Item Value Reference Range Interpretation Comments UA pH (test code = UA pH) 7.5 1 5.0-8.0 N [facility]VyebbgkHOCKSQSYPE6503-76-31 15:30:00 Test Item Value Reference Range Interpretation Comments UA Spec Grav (test code = UA Spec 1.010 1 N Grav) [facility] HospitalCsglctkVELWXMNZQP2375-51-47 15:30:00 Test Item Value Reference Range Interpretation Comments UA Turbidity (test code Slight Cloudy N = UA Turbidity) (09/18/2011 10:30:00) [facility] WestEibagmbAOREBVXMAN8085-25-45 15:30:00 Test Item Value Reference Range Interpretation Comments UA Color (test code = Yellow *NA*(09/18/2011 UA Color) 10:30:00) [facility] HospitalHljeibwDTJNIMVXV2965-29-80 15:30:00 Test Item Value Reference Range Interpretation Comments U Preg (test code = U Negative (09/18/2011 N Preg) 10:30:00) [facility] HospitalVlcjaphKIWZIDCKEP7409-29-58 15:30:00 Test Item Value Reference Range Interpretation Comments UA WBC (test code = UA None Seen (09/18/2011 N WBC) 10:30:00) [facility] HospitalCazpuroNNUTVGKWVI0526-52-05 15:30:00 Test Item Value Reference Range Interpretation Comments UA RBC (test None Seen See_Comment N [Automated mes pastor] code = UA RBC) (09/18/2011 The system ich 10:30:00) generated this result transmitted ref erence range: <=2. The reference range was not used to int erpret this result as normal/abnormal . [facility] HospitalMysgeizSSMTWUGQLC1501-56-07 15:30:00 Test Item Value Reference Range Interpretation Comments UA Bacteria (test code = None Seen (09/18/2011 N UA Bacteria) 10:30:00) [facility] HospitalKpnsuopGGGMRXSGGV6974-96-88 15:30:00 Test Item Value Reference Range Interpretation Comments UA Amorph Destiny (test Few /HPF A code = UA Amorph Destiny) *ABN*(09/18/2011 10:30:00) [facility] WestMlvmnumRWMBXVTKDG5311-68-71 15:30:00 Test Item Value Reference Range Interpretation Comments Micro? (test code = Performed (09/18/2011 N Micro?) 10:30:00) [facility] StationNuycosxYZIIRZCNMB5781-57-35 15:30:00 Test Item Value Reference Range Interpretation Comments UA Sq Epi (test code = Rare /LPF (09/18/2011 N UA Sq Epi) 10:30:00) [facility] StationHcmktjoQMVDSZICEB6926-28-77 15:30:00 Test Item Value Reference Range Interpretation Comments UA Ketones (test code = 15 mg/dL A UA Ketones) *ABN*(09/18/2011 10:30:00) [facility] StationLzziatgJHVWMVCTTE1332-98-17 15:30:00 Test Item Value Reference Range Interpretation Comments UA Glucose (test code = >=1000 mg/dL A UA Glucose) *ABN*(09/18/2011 10:30:00) [facility] StationHouqtzrZNDLGJJDXN0183-35-59 15:30:00 Test Item Value Reference Range Interpretation Comments UA Protein (test code = Trace A UA Protein) *ABN*(09/18/2011 10:30:00) [facility] StationDlfuirnQAJIPGHBAU7360-40-10 15:30:00 Test Item Value Reference Range Interpretation Comments UA Urobilinogen (test code = UA 0.2 0.1-1.0 N Urobilinogen) [facility] StationLuzhfuoMVMJWLQQUC7408-03-08 15:30:00 Test Item Value Reference Range Interpretation Comments UA Blood (test code = Negative (09/18/2011 N UA Blood) 10:30:00) [facility] StationPvmbgnfCFKKEIJPNQ9391-44-53 15:30:00 Test Item Value Reference Range Interpretation Comments UA Bili (test code = Negative *NA*(09/18/2011 UA Bili) 10:30:00) [facility] StationYwtgxuiOYASINZFZA7679-13-24 15:30:00 Test Item Value Reference Range Interpretation Comments UA Leuk Est (test Negative (09/18/2011 N code = UA Leuk Est) 10:30:00) [facility] StationJthrkxzBRQKOYEULO7565-99-00 15:30:00 Test Item Value Reference Range Interpretation Comments UA Nitrite (test code Negative (09/18/2011 N = UA Nitrite) 10:30:00) [facility] StationTmyzlsgCEIZSATEGU7238-04-32 15:30:00 Test Item Value Reference Range Interpretation Comments UA pH (test code = UA pH) 7.5 1 5.0-8.0 N [facility] StationIukffeyBWIJQOAEJO0262-18-62 15:30:00 Test Item Value Reference Range Interpretation Comments UA Spec Grav (test code = UA Spec 1.010 1 N Grav) [facility] StationNwlnnpsFJGUZFRZAL0320-84-98 15:30:00 Test Item Value Reference Range Interpretation Comments UA Turbidity (test code Slight Cloudy N = UA Turbidity) (09/18/2011 10:30:00) [facility] StationPodwcgxTWEFNWAEVK1347-30-17 15:30:00 Test Item Value Reference Range Interpretation Comments UA Color (test code = Yellow *NA*(09/18/2011 UA Color) 10:30:00) [facility]DdsidxkAEMXPHSNX5281-06-[facility] 14:07:00 Test Item Value Reference Range Interpretation Comments Phosphorus (test code = Phosphorus) 4.4 2.5-4.5 N [facility]manBtqkruhVUCBZNGUC0805-52-13 14:07:00 Test Item Value Reference Range Interpretation Comments Magnesium Lvl (test code = Magnesium 1.6 1.8-2.4 L Lvl) [facility]manFttoolzYDDXFNSRM3464-46-27 14:07:00 Test Item Value Reference Range Interpretation Comments Phosphorus (test code = Phosphorus) 4.4 2.5-4.5 N [facility]manBlwpnaaVLBGJQJSS3668-43-85 14:07:00 Test Item Value Reference Range Interpretation Comments Magnesium Lvl (test code = Magnesium 1.6 1.8-2.4 L Lvl) [facility]manSjewaxcSXDWDMZUO7158-01-85 14:07:00 Test Item Value Reference Range Interpretation Comments Phosphorus (test code = Phosphorus) 4.4 2.5-4.5 N [facility]manNjpnjpaMXTRACPYS8989-58-14 14:07:00 Test Item Value Reference Range Interpretation Comments Magnesium Lvl (test code = Magnesium 1.6 1.8-2.4 L Lvl) [facility]manAsymmekFQZWVLAJT7114-66-61 14:07:00 Test Item Value Reference Range Interpretation Comments Phosphorus (test code = Phosphorus) 4.4 2.5-4.5 N [facility]manDfmoqeiOKRMFXEME2965-18-70 14:07:00 Test Item Value Reference Range Interpretation Comments Magnesium Lvl (test code = Magnesium 1.6 1.8-2.4 L Lvl) [facility]manJtaiaiwMFTCUMFQZ8095-11-28 14:07:00 Test Item Value Reference Range Interpretation Comments Phosphorus (test code = Phosphorus) 4.4 2.5-4.5 N [facility]manFqljppuSVYQRBYKA2057-75-17 14:07:00 Test Item Value Reference Range Interpretation Comments Magnesium Lvl (test code = Magnesium 1.6 1.8-2.4 L Lvl) [facility] GLUCOSE FASAMGK5484-94-34 14:01:00 Test Item Value Reference Range Interpretation Comments Gluc POC Lifscn (test code = Gluc POC no gt 70-99 A Lifscn) [facility] GLUCOSE BCSSGEJ3999-97-52 14:01:00 Test Item Value Reference Range Interpretation Comments Gluc POC Lifscn (test code = Gluc POC no gt 70-99 A Lifscn) [facility] GLUCOSE XSDYXGQ5593-26-80 14:01:00 Test Item Value Reference Range Interpretation Comments Gluc POC Lifscn (test code = Gluc POC no gt 70-99 A Lifscn) [facility] GLUCOSE XLHUVHG3117-60-04 14:01:00 Test Item Value Reference Range Interpretation Comments Gluc POC Lifscn (test code = Gluc POC no gt 70-99 A Lifscn) [facility] GLUCOSE ENABNOU1588-34-21 14:01:00 Test Item Value Reference Range Interpretation Comments Gluc POC Lifscn (test code = Gluc POC no gt 70-99 A Lifscn) [facility]manTfdhemjLGUTBTMTW3179-12-24 13:52:00 Test Item Value Reference Range Interpretation Comments pO2 Roberth (test code = pO2 Roberth) 24 20-49 N [facility]manDizmmiiYKSPDYGUS9939-69-10 13:52:00 Test Item Value Reference Range Interpretation Comments HCO3 Roberth (test code = HCO3 Roberth) 32.0 22.0-26.0 H [facility]manDjnoinjZIAOBSQVX5243-74-31 13:52:00 Test Item Value Reference Range Interpretation Comments pCO2 Roberth (test code = pCO2 Roberth) 44 38-52 N [facility]manHjhpyvbYOVRFIIUS0406-89-34 13:52:00 Test Item Value Reference Range Interpretation Comments BE Roberth (test code = 7 See_Comment H [Automa rohit message] The BE Roberth) system which ge nerated this result transmit rohit reference range : <=2. The reference range was not used to interpr et this result as reji l/abnormal. [facility]manBwowbxzAHMUBOZGB3984-32-46 13:52:00 Test Item Value Reference Range Interpretation Comments O2 Sat Roberth (test code = O2 Sat Roberth) 48.0 40.0-70.0 N [facility]manZrxgmnvKWGCTTUAQ5614-85-13 13:52:00 Test Item Value Reference Range Interpretation Comments Temp Roberth (test code = Temp Roberth) 37.0 [facility]manRcojynyWDYVFKALC0872-40-93 13:52:00 Test Item Value Reference Range Interpretation Comments pH Roberth (test code = pH Roberth) 7.47 7.28-7.42 H [facility]manWdkecpjYIXBYLQTU6425-17-95 13:52:00 Test Item Value Reference Range Interpretation Comments Calcium Lvl (test code = Calcium Lvl) 10.1 8.5-10.5 N [facility]manPlubzmtXCJDWCZZC8780-52-72 13:52:00 Test Item Value Reference Range Interpretation Comments Chloride Lvl (test code = Chloride Lvl) 92 95-109 L [facility]manPzmpzpkHPCHFAKZD8511-20-74 13:52:00 Test Item Value Reference Range Interpretation Comments CO2 (test code = CO2) 30 24-32 N [facility]manClntwczXMBLPIBMQ9421-29-08 13:52:00 Test Item Value Reference Range Interpretation Comments Potassium Lvl (test code = Potassium 3.5 3.5-5.1 N Lvl) [facility]manAbavrlnLOSVNICNR4640-37-98 13:52:00 Test Item Value Reference Range Interpretation Comments Sodium Lvl (test code = Sodium Lvl) 133 135-145 L [facility]manAljihlkXUOEQTDMI5995-04-80 13:52:00 Test Item Value Reference Range Interpretation Comments Creatinine Lvl (test code = Creatinine 1.3 0.5-1.4 N Lvl) [facility]manEbwflxnYVXWNUIIT8853-22-30 13:52:00 Test Item Value Reference Range Interpretation Comments Glucose Lvl (test code = Glucose Lvl) 383 70-99 H [facility]manLpkdfznQGVGUHEAH5492-64-65 13:52:00 Test Item Value Reference Range Interpretation Comments BUN (test code = BUN) 17 7-22 N [facility] HospitalUesluogAGHOYWSGD0558-90-63 13:52:00 Test Item Value Reference Range Interpretation Comments AGAP (test code = AGAP) 14.5 10.0-20.0 N [facility] CampusMiteaqcYRKIRBZLVI0294-68-83 13:52:00 Test Item Value Reference Range Interpretation Comments MPV (test code = MPV) 12.0 7.4-10.4 H [facility] CampusUwlosfgZFTORCTVDB6180-67-48 13:52:00 Test Item Value Reference Range Interpretation Comments Platelet (test code = Platelet) 226 133-450 N [facility] CampusUopscbkEKCHZYWHJD1699-56-70 13:52:00 Test Item Value Reference Range Interpretation Comments MCHC (test code = MCHC) 33.7 32.0-36.0 N [facility] CampusZnioxosAVMRWHXDFN1875-74-53 13:52:00 Test Item Value Reference Range Interpretation Comments MCH (test code = MCH) 28.5 pg 27.0-31.0 N [facility] CampusFfqxuxxPDOOGZQFZN5190-18-71 13:52:00 Test Item Value Reference Range Interpretation Comments RDW (test code = RDW) 15.1 11.5-14.5 H [facility] CampusGegywgoFAEZNEMRFP0607-43-19 13:52:00 Test Item Value Reference Range Interpretation Comments MCV (test code = MCV) 84.6 81.0-99.0 N [facility] CampusFrxzatmTUPKNNMLGS6106-88-76 13:52:00 Test Item Value Reference Range Interpretation Comments Hct (test code = Hct) 36.4 36.0-48.0 N [facility] CampusYxbeidjAFVPTUYOAF7307-74-23 13:52:00 Test Item Value Reference Range Interpretation Comments Hgb (test code = Hgb) 12.3 12.0-16.0 N [facility] CampusBczycmeHOJXRFGEIQ2152-18-01 13:52:00 Test Item Value Reference Range Interpretation Comments RBC (test code = RBC) 4.30 4.20-5.40 N [facility] CampusLwnfzkpRHCDCBQWDL2772-92-72 13:52:00 Test Item Value Reference Range Interpretation Comments WBC (test code = WBC) 11.7 3.7-10.4 H [facility] CampusLavgxxgBEDXHGJIHC4953-36-97 13:52:00 Test Item Value Reference Range Interpretation Comments Monocytes (test code = Monocytes) 2.9 2.0-12.0 N [facility] CampusKnfbogzKIZUONHRES7191-50-46 13:52:00 Test Item Value Reference Range Interpretation Comments Eosinophils (test code = 0.2 See_Comment N [A utomated message] The Eosinophils) system which ge nerated this result tra nsmitted reference range : <=4.0. The reference r leo was not used to int erpret this result as normal/abnormal . [facility] CampusYmdhdtbKEWTYQHRBU5342-74-65 13:52:00 Test Item Value Reference Range Interpretation Comments Basophils (test code = 0.0 See_Comment N [Aut omated message] The Basophils) system which ge nerated this result tra nsmitted reference range : <=1.0. The reference r leo was not used to int erpret this result as normal/abnormal . [facility] CampusGyrsxxcVHRWARBHWS6480-24-51 13:52:00 Test Item Value Reference Range Interpretation Comments Eosinophils # (test code 0.0 See_Comment N [A utomated message] The = Eosinophils #) system wh h generated this result tra nsmitted reference range : <=0.5. The reference r leo was not used to int erpret this result as normal/abnormal . [facility] CampusBlaboblJTLCIJLNJQ7360-75-05 13:52:00 Test Item Value Reference Range Interpretation Comments Monocytes # (test code 0.3 See_Comment N [Aut omated message] The = Monocytes #) system which generated this result tra nsmitted reference range : <=0.8. The reference r leo was not used to int erpret this result as normal/abnormal . [facility] CampusQccrrxwZQJRWUNUPM8959-30-37 13:52:00 Test Item Value Reference Range Interpretation Comments Segs (test code = Segs) 92.0 45.0-75.0 H [facility] CampusKtxgcfhBPJOTWGITQ4462-63-20 13:52:00 Test Item Value Reference Range Interpretation Comments Lymphocytes (test code = Lymphocytes) 4.9 20.0-40.0 L [facility] CampusXurbqxqZLWUTRRTLS7646-66-88 13:52:00 Test Item Value Reference Range Interpretation Comments Spherocyte (test code = Rare A Spherocyte) *ABN*(09/18/2011 08:52:00) [facility] CampusMikwwopIDZERLYJBD6210-25-38 13:52:00 Test Item Value Reference Range Interpretation Comments Large Plt (test code = Slight *ABN*(09/18/2011 A Large Plt) 08:52:00) [facility] CampusEqogehgLUOKJKRHLP8211-04-75 13:52:00 Test Item Value Reference Range Interpretation Comments Microcyte (test code = 1+ *ABN*(09/18/2011 A Microcyte) 08:52:00) [facility] CampusHnhixgmXYMDVRACXQ8034-69-80 13:52:00 Test Item Value Reference Range Interpretation Comments Schistocyte (test code = Schistocyte) Rare [facility] CampusHplmadbPNXGDQDIVX4987-99-18 13:52:00 Test Item Value Reference Range Interpretation Comments Macrocyte (test code = 1+ *ABN*(09/18/2011 A Macrocyte) 08:52:00) [facility] CampusSyjuyhpVIXAPMWZZD8737-94-41 13:52:00 Test Item Value Reference Range Interpretation Comments Lymphocytes # (test code = Lymphocytes 0.6 1.0-5.5 L #) [facility] CampusCyvhoijVTHHXHIOXD3294-24-04 13:52:00 Test Item Value Reference Range Interpretation Comments Segs-Bands # (test code = Segs-Bands #) 10.8 1.5-8.1 H [facility] CampusBxmgzzcMODCRYOSAL0621-52-04 13:52:00 Test Item Value Reference Range Interpretation Comments Basophils # (test code 0.0 See_Comment N [Aut omated message] The = Basophils #) system which generated this result tra nsmitted reference range : <=0.2. The reference r leo was not used to int erpret this result as normal/abnormal . [facility] CampusArwnhlqNESUFTHLSW4226-30-29 13:52:00 Test Item Value Reference Range Interpretation Comments Anisocyte (test code = 1+ *ABN*(09/18/2011 A Anisocyte) 08:52:00) [facility]YsqcomjBYJIXGYSQW1014-85-47 13:52:00 Test Item Value Reference Range Interpretation Comments CDC-HIV 1/2 Ab (test Negative *NA*(09/18/2011 code = CDC-HIV 1/2 08:52:00) Ab) [facility]XktmbjsPLNHSPGFD6566-94-79 13:52:00 Test Item Value Reference Range Interpretation Comments pO2 Roberth (test code = pO2 Roberth) 24 20-49 N [facility]manRpaoctySYWYYCHGN4683-38-93 13:52:00 Test Item Value Reference Range Interpretation Comments HCO3 Roberth (test code = HCO3 Roberth) 32.0 22.0-26.0 H [facility]manJyfvoxwWVHSYPGDB5518-29-44 13:52:00 Test Item Value Reference Range Interpretation Comments pCO2 Roberth (test code = pCO2 Roberth) 44 38-52 N [facility]manZaosnlySFPFPBXGL2377-45-13 13:52:00 Test Item Value Reference Range Interpretation Comments BE Roberth (test code = 7 See_Comment H [Automa rohit message] The BE Roberth) system which ge nerated this result transmit rohit reference range : <=2. The reference range was not used to interpr et this result as reji l/abnormal. [facility]IsfdvvvPFBBTXFAU8511-12-49 13:52:00 Test Item Value Reference Range Interpretation Comments O2 Sat Roberth (test code = O2 Sat Roberth) 48.0 40.0-70.0 N [facility]manGmxxgsyEAFNXKLFE6840-46-45 13:52:00 Test Item Value Reference Range Interpretation Comments Temp Roberth (test code = Temp Roberth) 37.0 [facility]manSwsjwzhHHGQZKRSE6039-88-22 13:52:00 Test Item Value Reference Range Interpretation Comments pH Roberth (test code = pH Roberth) 7.47 7.28-7.42 H [facility]manAnnmpfuDLGYPGDZF1076-63-06 13:52:00 Test Item Value Reference Range Interpretation Comments Calcium Lvl (test code = Calcium Lvl) 10.1 8.5-10.5 N [facility]manGehyvljJIWELBVKU8388-99-74 13:52:00 Test Item Value Reference Range Interpretation Comments Chloride Lvl (test code = Chloride Lvl) 92 95-109 L [facility]manQigvjssIDCUSQADS0967-21-62 13:52:00 Test Item Value Reference Range Interpretation Comments CO2 (test code = CO2) 30 24-32 N [facility]manUjrygnmEOPYWAZKQ4937-54-75 13:52:00 Test Item Value Reference Range Interpretation Comments Potassium Lvl (test code = Potassium 3.5 3.5-5.1 N Lvl) [facility]manKhfjlxqSASLHZAIS3302-27-06 13:52:00 Test Item Value Reference Range Interpretation Comments Sodium Lvl (test code = Sodium Lvl) 133 135-145 L [facility]manLdozndzBZSFQQTED5112-66-42 13:52:00 Test Item Value Reference Range Interpretation Comments Creatinine Lvl (test code = Creatinine 1.3 0.5-1.4 N Lvl) [facility]manHponurePRTASHUFJ7636-98-98 13:52:00 Test Item Value Reference Range Interpretation Comments Glucose Lvl (test code = Glucose Lvl) 383 70-99 H [facility]manPzmavhsXAGLRZCTO3870-93-53 13:52:00 Test Item Value Reference Range Interpretation Comments BUN (test code = BUN) 17 7-22 N [facility]manSwpiipoZSARYFBTI6181-24-55 13:52:00 Test Item Value Reference Range Interpretation Comments AGAP (test code = AGAP) 14.5 10.0-20.0 N [facility] CampusSdqxpnpJYLDBGUTNG9780-21-96 13:52:00 Test Item Value Reference Range Interpretation Comments MPV (test code = MPV) 12.0 7.4-10.4 H [facility] CampusLonbeftEBCWOLNRLL9687-63-59 13:52:00 Test Item Value Reference Range Interpretation Comments Platelet (test code = Platelet) 226 133-450 N [facility] CampusBnbrjqqSSFENROZKI2031-02-26 13:52:00 Test Item Value Reference Range Interpretation Comments MCHC (test code = MCHC) 33.7 32.0-36.0 N [facility] CampusFkwhgdqEDJZFLWOUH0818-82-03 13:52:00 Test Item Value Reference Range Interpretation Comments MCH (test code = MCH) 28.5 pg 27.0-31.0 N [facility] CampusMyjswzuFNJRPBLDBI4455-07-37 13:52:00 Test Item Value Reference Range Interpretation Comments RDW (test code = RDW) 15.1 11.5-14.5 H [facility] CampusCycdicwXMTMFUOTUW4100-32-44 13:52:00 Test Item Value Reference Range Interpretation Comments MCV (test code = MCV) 84.6 81.0-99.0 N [facility] CampusIhxtxztBKRJVYYKYN8693-49-03 13:52:00 Test Item Value Reference Range Interpretation Comments Hct (test code = Hct) 36.4 36.0-48.0 N [facility] CampusSybpbuhHMCJNFQGAE0534-80-77 13:52:00 Test Item Value Reference Range Interpretation Comments Hgb (test code = Hgb) 12.3 12.0-16.0 N [facility] CampusIwjglnzVAFQFVFPFY5718-88-01 13:52:00 Test Item Value Reference Range Interpretation Comments RBC (test code = RBC) 4.30 4.20-5.40 N [facility] CampusOomdjcrYZKXIBMNMM1382-12-28 13:52:00 Test Item Value Reference Range Interpretation Comments WBC (test code = WBC) 11.7 3.7-10.4 H [facility] CampusIbwzkmpRJBNTGVAYE0181-52-55 13:52:00 Test Item Value Reference Range Interpretation Comments Monocytes (test code = Monocytes) 2.9 2.0-12.0 N [facility] CampusSxexhduZKGRFEUVIQ5398-99-30 13:52:00 Test Item Value Reference Range Interpretation Comments Eosinophils (test code = 0.2 See_Comment N [A utomated message] The Eosinophils) system which ge nerated this result tra nsmitted reference range : <=4.0. The reference r leo was not used to int erpret this result as normal/abnormal . [facility] CampusQgrxdfqMNZTBWYIMG9645-25-59 13:52:00 Test Item Value Reference Range Interpretation Comments Basophils (test code = 0.0 See_Comment N [Aut omated message] The Basophils) system which ge nerated this result tra nsmitted reference range : <=1.0. The reference r leo was not used to int erpret this result as normal/abnormal . [facility] CampusSboqsymFBHALHFGJG7368-09-58 13:52:00 Test Item Value Reference Range Interpretation Comments Eosinophils # (test code 0.0 See_Comment N [A utomated message] The = Eosinophils #) system whic h generated this result tra nsmitted reference range : <=0.5. The reference r leo was not used to int erpret this result as normal/abnormal . [facility] CampusOirkrjkIYZPRKPFDC6531-11-23 13:52:00 Test Item Value Reference Range Interpretation Comments Monocytes # (test code 0.3 See_Comment N [Aut omated message] The = Monocytes #) system which generated this result tra nsmitted reference range : <=0.8. The reference r leo was not used to int erpret this result as normal/abnormal . [facility] CampusFlucnquTRTHGFODDI9327-75-31 13:52:00 Test Item Value Reference Range Interpretation Comments Segs (test code = Segs) 92.0 45.0-75.0 H [facility] [facility]GnjrhonDPLDVDXGTA9601-26-91 13:52:00 Test Item Value Reference Range Interpretation Comments Lymphocytes (test code = Lymphocytes) 4.9 20.0-40.0 L [facility] CampusMxwtbaySMKTDAPWPN7249-86-89 13:52:00 Test Item Value Reference Range Interpretation Comments Spherocyte (test code = Rare A Spherocyte) *ABN*(09/18/2011 08:52:00) [facility] CampusPnprqvyUZWUGAJQEL1822-89-79 13:52:00 Test Item Value Reference Range Interpretation Comments Large Plt (test code = Slight *ABN*(09/18/2011 A Large Plt) 08:52:00) [facility] CampusRvwuskgHFFXXNJRIU1833-83-68 13:52:00 Test Item Value Reference Range Interpretation Comments Microcyte (test code = 1+ *ABN*(09/18/2011 A Microcyte) 08:52:00) [facility] CampusWwyrlahKXDTZULBZR9698-23-51 13:52:00 Test Item Value Reference Range Interpretation Comments Schistocyte (test code = Schistocyte) Rare [facility] CampusIpbvqleIHDAVGRLJH5662-64-08 13:52:00 Test Item Value Reference Range Interpretation Comments Macrocyte (test code = 1+ *ABN*(09/18/2011 A Macrocyte) 08:52:00) [facility] CampusHhnsuvbTMEJEBKZFE3122-12-59 13:52:00 Test Item Value Reference Range Interpretation Comments Lymphocytes # (test code = Lymphocytes 0.6 1.0-5.5 L #) [facility] CampusDajqxszPJHGVNWKDG4377-99-07 13:52:00 Test Item Value Reference Range Interpretation Comments Segs-Bands # (test code = Segs-Bands #) 10.8 1.5-8.1 H [facility] CampusEsbciehEOOYFEPYJT9644-05-49 13:52:00 Test Item Value Reference Range Interpretation Comments Basophils # (test code 0.0 See_Comment N [Aut omated message] The = Basophils #) system which generated this result tra nsmitted reference range : <=0.2. The reference r leo was not used to int erpret this result as normal/abnormal . [facility] CampusKkbyrypZVGFTXMRHY1337-33-75 13:52:00 Test Item Value Reference Range Interpretation Comments Anisocyte (test code = 1+ *ABN*(09/18/2011 A Anisocyte) 08:52:00) [facility]SyoamdvYMKHUZTGWR9157-07-94 13:52:00 Test Item Value Reference Range Interpretation Comments CDC-HIV 1/2 Ab (test Negative *NA*(09/18/2011 code = CDC-HIV 1/2 08:52:00) Ab) [facility]zxhripQWAQTACGS2051-47-23 13:52:00 Test Item Value Reference Range Interpretation Comments pO2 Roberth (test code = pO2 Roberth) 24 20-49 N [facility]KysywgaLAICFCAHX6025-71-29 13:52:00 Test Item Value Reference Range Interpretation Comments HCO3 Roberth (test code = HCO3 Roberth) 32.0 22.0-26.0 H [facility]AepnccmOKXXQIAPW2258-89-96 13:52:00 Test Item Value Reference Range Interpretation Comments pCO2 Roberth (test code = pCO2 Roberth) 44 38-52 N [facility]manOeawazuXUSSSLPWX8496-67-84 13:52:00 Test Item Value Reference Range Interpretation Comments BE Roberth (test code = 7 See_Comment H [Automa rohit message] The BE Roberth) system which ge nerated this result transmit rohit reference range : <=2. The reference range was not used to interpr et this result as reji l/abnormal. [facility]manAtjkwauJIHBAJUOD5552-87-94 13:52:00 Test Item Value Reference Range Interpretation Comments O2 Sat Roberth (test code = O2 Sat Roberth) 48.0 40.0-70.0 N [facility]manBvgsnojFSAYJSTFD5246-55-88 13:52:00 Test Item Value Reference Range Interpretation Comments Temp Roberth (test code = Temp Roberth) 37.0 [facility]PvxfonbQUSOKJHGR6376-25-33 13:52:00 Test Item Value Reference Range Interpretation Comments pH Roberth (test code = pH Roberth) 7.47 7.28-7.42 H [facility]manXsohmdiPTRGWNTXZ4649-75-64 13:52:00 Test Item Value Reference Range Interpretation Comments Calcium Lvl (test code = Calcium Lvl) 10.1 8.5-10.5 N [facility]manHhtqkpfEYAVMARTW6039-49-62 13:52:00 Test Item Value Reference Range Interpretation Comments Chloride Lvl (test code = Chloride Lvl) 92 95-109 L [facility]AdcvmqdKIUVZQXYP0095-78-69 13:52:00 Test Item Value Reference Range Interpretation Comments CO2 (test code = CO2) 30 24-32 N [facility]manLxafmuyECQNKXBBR1773-00-54 13:52:00 Test Item Value Reference Range Interpretation Comments Potassium Lvl (test code = Potassium 3.5 3.5-5.1 N Lvl) [facility]manIgoeihdQJHLPFIQE6066-58-44 13:52:00 Test Item Value Reference Range Interpretation Comments Sodium Lvl (test code = Sodium Lvl) 133 135-145 L [facility]manWzosfptMNEVQIVLC8704-69-58 13:52:00 Test Item Value Reference Range Interpretation Comments Creatinine Lvl (test code = Creatinine 1.3 0.5-1.4 N Lvl) [facility]manQyjtbstJLIHEMAIG6751-26-13 13:52:00 Test Item Value Reference Range Interpretation Comments Glucose Lvl (test code = Glucose Lvl) 383 70-99 H [facility]manBwnbknhWMDDEFLIM9143-26-64 13:52:00 Test Item Value Reference Range Interpretation Comments BUN (test code = BUN) 17 7-22 N [facility]manHpjrgelSVCIVUVWK6550-27-73 13:52:00 Test Item Value Reference Range Interpretation Comments AGAP (test code = AGAP) 14.5 10.0-20.0 N [facility] CampusQpwijmrDIPBMCYPQK3893-33-97 13:52:00 Test Item Value Reference Range Interpretation Comments MPV (test code = MPV) 12.0 7.4-10.4 H [facility] CampusAghfessKXGAXEFMWZ1371-24-42 13:52:00 Test Item Value Reference Range Interpretation Comments Platelet (test code = Platelet) 226 133-450 N [facility] CampusElfnaxoKXINCGUZFY8993-74-56 13:52:00 Test Item Value Reference Range Interpretation Comments MCHC (test code = MCHC) 33.7 32.0-36.0 N [facility] CampusIfezdyfCNLMAWCGTN2690-88-15 13:52:00 Test Item Value Reference Range Interpretation Comments MCH (test code = MCH) 28.5 pg 27.0-31.0 N [facility] CampusTvquuazBDDOGDTRBQ2417-26-82 13:52:00 Test Item Value Reference Range Interpretation Comments RDW (test code = RDW) 15.1 11.5-14.5 H [facility] CampusHpadrteLJABEJQXDK9271-28-51 13:52:00 Test Item Value Reference Range Interpretation Comments MCV (test code = MCV) 84.6 81.0-99.0 N [facility] CampusLhxizgmXQFEDMIBST7578-50-68 13:52:00 Test Item Value Reference Range Interpretation Comments Hct (test code = Hct) 36.4 36.0-48.0 N [facility] CampusKqpkxegIMJBKJMXCR2585-51-32 13:52:00 Test Item Value Reference Range Interpretation Comments Hgb (test code = Hgb) 12.3 12.0-16.0 N [facility] CampusRwaewklHOHKQONNBZ9651-44-44 13:52:00 Test Item Value Reference Range Interpretation Comments RBC (test code = RBC) 4.30 4.20-5.40 N [facility] CampusKbuwecrDGZWLBIVUM8874-54-52 13:52:00 Test Item Value Reference Range Interpretation Comments WBC (test code = WBC) 11.7 3.7-10.4 H [facility] CampusVjufqjmKFYIMRQCYF7072-34-06 13:52:00 Test Item Value Reference Range Interpretation Comments Monocytes (test code = Monocytes) 2.9 2.0-12.0 N [facility] CampusMjegsikNICXZJFXUF7432-03-68 13:52:00 Test Item Value Reference Range Interpretation Comments Eosinophils (test code = 0.2 See_Comment N [A utomated message] The Eosinophils) system which ge nerated this result tra nsmitted reference range : <=4.0. The reference r leo was not used to int erpret this result as normal/abnormal . [facility] CampusAupzwktPLFGTOOXZL1869-48-47 13:52:00 Test Item Value Reference Range Interpretation Comments Basophils (test code = 0.0 See_Comment N [Aut omated message] The Basophils) system which ge nerated this result tra nsmitted reference range : <=1.0. The reference r leo was not used to int erpret this result as normal/abnormal . [facility] CampusXwiomjgAUBTIFZRGH0582-15-04 13:52:00 Test Item Value Reference Range Interpretation Comments Eosinophils # (test code 0.0 See_Comment N [A utomated message] The = Eosinophils #) system [facility] generated this result tra nsmitted reference range : <=0.5. The reference r leo was not used to int erpret this result as normal/abnormal . [facility] CampusXzmkxsvQMDGXJWJVN7356-03-89 13:52:00 Test Item Value Reference Range Interpretation Comments Monocytes # (test code 0.3 See_Comment N [Aut omated message] The = Monocytes #) system which generated this result tra nsmitted reference range : <=0.8. The reference r leo was not used to int erpret this result as normal/abnormal . [facility] CampusHyfpybjICXMPMMAMJ3907-74-90 13:52:00 Test Item Value Reference Range Interpretation Comments Segs (test code = Segs) 92.0 45.0-75.0 H [facility] CampusJgzpfibHYTYYVYGHS2483-10-52 13:52:00 Test Item Value Reference Range Interpretation Comments Lymphocytes (test code = Lymphocytes) 4.9 20.0-40.0 L [facility] CampusYzvrdikNHQTHDARJW3785-01-68 13:52:00 Test Item Value Reference Range Interpretation Comments Spherocyte (test code = Rare A Spherocyte) *ABN*(09/18/2011 08:52:00) [facility] CampusOljoqujIWTZKEHXWA0063-07-57 13:52:00 Test Item Value Reference Range Interpretation Comments Large Plt (test code = Slight *ABN*(09/18/2011 A Large Plt) 08:52:00) [facility] CampusNzoecfnZWIZZRSIRI6087-59-49 13:52:00 Test Item Value Reference Range Interpretation Comments Microcyte (test code = 1+ *ABN*(09/18/2011 A Microcyte) 08:52:00) [facility] CampusSczjrxjUDRJBTHUKT3050-27-11 13:52:00 Test Item Value Reference Range Interpretation Comments Schistocyte (test code = Schistocyte) Rare [facility] CampusDwexvglLWSRTVUIMV0370-57-36 13:52:00 Test Item Value Reference Range Interpretation Comments Macrocyte (test code = 1+ *ABN*(09/18/2011 A Macrocyte) 08:52:00) [facility] CampusMneolfuMDKERNDGMP9461-75-37 13:52:00 Test Item Value Reference Range Interpretation Comments Lymphocytes # (test code = Lymphocytes 0.6 1.0-5.5 L #) [facility] CampusYrlzgrhSAKJEWJLXC6877-83-77 13:52:00 Test Item Value Reference Range Interpretation Comments Segs-Bands # (test code = Segs-Bands #) 10.8 1.5-8.1 H [facility] CampusOmnzakdOQUWPILBAG9536-81-47 13:52:00 Test Item Value Reference Range Interpretation Comments Basophils # (test code 0.0 See_Comment N [Aut omated message] The = Basophils #) system which generated this result tra nsmitted reference range : <=0.2. The reference r leo was not used to int erpret this result as normal/abnormal . [facility] CampusOfsrgzvVRMQZYSBKJ6229-35-05 13:52:00 Test Item Value Reference Range Interpretation Comments Anisocyte (test code = 1+ *ABN*(09/18/2011 A Anisocyte) 08:52:00) [facility]wbpdcj[facility]HMXJCZCC6576-61-18 13:52:00 Test Item Value Reference Range Interpretation Comments CDC-HIV 1/2 Ab (test Negative *NA*(09/18/2011 code = CDC-HIV 1/2 08:52:00) Ab) [facility]RmjfikxTUJNGEPSW5922-56-52 13:52:00 Test Item Value Reference Range Interpretation Comments pO2 Roberth (test code = pO2 Roberth) 24 20-49 N [facility]manBgtpcbcKQSZNCXIV5268-15-14 13:52:00 Test Item Value Reference Range Interpretation Comments HCO3 Roberth (test code = HCO3 Roberth) 32.0 22.0-26.0 H [facility]manNtzmfnrVAFKWVFYC7780-19-39 13:52:00 Test Item Value Reference Range Interpretation Comments pCO2 Roberth (test code = pCO2 Roberth) 44 38-52 N [facility]manAtaxonuKACQUPGYH5785-09-26 13:52:00 Test Item Value Reference Range Interpretation Comments BE Roberth (test code = 7 See_Comment H [Automa rohit message] The BE Roberth) system which ge nerated this result transmit rohit reference range : <=2. The reference range was not used to interpr et this result as reji l/abnormal. [facility]manDdwsckcUKIJOVKEO3374-80-89 13:52:00 Test Item Value Reference Range Interpretation Comments O2 Sat Roberth (test code = O2 Sat Roberth) 48.0 40.0-70.0 N [facility]manFowggkkVMGJRDBVN8651-89-57 13:52:00 Test Item Value Reference Range Interpretation Comments Temp Roberth (test code = Temp Roberth) 37.0 [facility]manLkzatpgGPRKGBHPL2692-79-28 13:52:00 Test Item Value Reference Range Interpretation Comments pH Roberth (test code = pH Roberth) 7.47 7.28-7.42 H [facility]manIbrdfhoHNASVETRE3610-61-89 13:52:00 Test Item Value Reference Range Interpretation Comments Calcium Lvl (test code = Calcium Lvl) 10.1 8.5-10.5 N [facility]manXrgzzqiCPTMUKRJN8891-56-44 13:52:00 Test Item Value Reference Range Interpretation Comments Chloride Lvl (test code = Chloride Lvl) 92 95-109 L [facility]OjvcpklHZJNNIYXG6069-63-23 13:52:00 Test Item Value Reference Range Interpretation Comments CO2 (test code = CO2) 30 24-32 N [facility]manKsinhquKOVQHBROO9826-85-53 13:52:00 Test Item Value Reference Range Interpretation Comments Potassium Lvl (test code = Potassium 3.5 3.5-5.1 N Lvl) [facility]manMnvjtpcSCWTYZSDW0788-83-36 13:52:00 Test Item Value Reference Range Interpretation Comments Sodium Lvl (test code = Sodium Lvl) 133 135-145 L [facility]XemnztjIAXZRYPWC2841-93-23 13:52:00 Test Item Value Reference Range Interpretation Comments Creatinine Lvl (test code = Creatinine 1.3 0.5-1.4 N Lvl) [facility]manNgyhmvoRBYXSDQDQ4195-74-78 13:52:00 Test Item Value Reference Range Interpretation Comments Glucose Lvl (test code = Glucose Lvl) 383 70-99 H [facility]manRjzfhlkJISQCNRGE6370-29-75 13:52:00 Test Item Value Reference Range Interpretation Comments BUN (test code = BUN) 17 7-22 N [facility]manJykjdyeZUAKFTHCH8339-03-09 13:52:00 Test Item Value Reference Range Interpretation Comments AGAP (test code = AGAP) 14.5 10.0-20.0 N [facility] CampusNknuvsaTKSVBSXZKE5163-69-25 13:52:00 Test Item Value Reference Range Interpretation Comments MPV (test code = MPV) 12.0 7.4-10.4 H [facility] CampusQdcfgoqOPSCESRCYQ5717-83-15 13:52:00 Test Item Value Reference Range Interpretation Comments Platelet (test code = Platelet) 226 133-450 N [facility] CampusZlzkspvXBYIBMCSRG0131-71-16 13:52:00 Test Item Value Reference Range Interpretation Comments MCHC (test code = MCHC) 33.7 32.0-36.0 N [facility] CampusGiqycjxLVRHBIXTKH0470-25-45 13:52:00 Test Item Value Reference Range Interpretation Comments MCH (test code = MCH) 28.5 pg 27.0-31.0 N [facility] CampusJfhzeznYULXJBVJZL4531-31-23 13:52:00 Test Item Value Reference Range Interpretation Comments RDW (test code = RDW) 15.1 11.5-14.5 H [facility] CampusDpkxgtySRKXPAXQHV7463-15-22 13:52:00 Test Item Value Reference Range Interpretation Comments MCV (test code = MCV) 84.6 81.0-99.0 N [facility] CampusDqvtpiiDEROENRMJE8776-97-47 13:52:00 Test Item Value Reference Range Interpretation Comments Hct (test code = Hct) 36.4 36.0-48.0 N [facility] CampusVhvckiaSQPDOTFUBR9044-19-79 13:52:00 Test Item Value Reference Range Interpretation Comments Hgb (test code = Hgb) 12.3 12.0-16.0 N [facility] CampusCxpcwhxRBTCXTHXJX9059-40-01 13:52:00 Test Item Value Reference Range Interpretation Comments RBC (test code = RBC) 4.30 4.20-5.40 N [facility] CampusYntplmyOLBJNSETDD6724-53-44 13:52:00 Test Item Value Reference Range Interpretation Comments WBC (test code = WBC) 11.7 3.7-10.4 H [facility] CampusGljvmotPTHBBTNYIV9321-33-60 13:52:00 Test Item Value Reference Range Interpretation Comments Monocytes (test code = Monocytes) 2.9 2.0-12.0 N [facility] CampusMdmpbmuBYDRKKFYNF7092-79-22 13:52:00 Test Item Value Reference Range Interpretation Comments Eosinophils (test code = 0.2 See_Comment N [A utomated message] The Eosinophils) system which ge nerated this result tra nsmitted reference range : <=4.0. The reference r leo was not used to int erpret this result as normal/abnormal . [facility] CampusNxnixxdKNCEDQZNAU7544-69-72 13:52:00 Test Item Value Reference Range Interpretation Comments Basophils (test code = 0.0 See_Comment N [Aut omated message] The Basophils) system which ge nerated this result tra nsmitted reference range : <=1.0. The reference r leo was not used to int erpret this result as normal/abnormal . [facility] CampusJcpuuyfHQNZVMYYIF0067-28-23 13:52:00 Test Item Value Reference Range Interpretation Comments Eosinophils # (test code 0.0 See_Comment N [A utomated message] The = Eosinophils #) system whic h generated this result tra nsmitted reference range : <=0.5. The reference r leo was not used to int erpret this result as normal/abnormal . [facility] CampusFwzurldCIYSRDECYM3543-95-79 13:52:00 Test Item Value Reference Range Interpretation Comments Monocytes # (test code 0.3 See_Comment N [Aut omated message] The = Monocytes #) system which generated this result tra nsmitted reference range : <=0.8. The reference r leo was not used to int erpret this result as normal/abnormal . [facility] CampusKjeqielWDQXFNLBTT2527-45-43 13:52:00 Test Item Value Reference Range Interpretation Comments Segs (test code = Segs) 92.0 45.0-75.0 H [facility] CampusMtdjmgeNKRNZGISOH4608-24-36 13:52:00 Test Item Value Reference Range Interpretation Comments Lymphocytes (test code = Lymphocytes) 4.9 20.0-40.0 L [facility] CampusYpjrcsiLNQLVENTOS5296-09-26 13:52:00 Test Item Value Reference Range Interpretation Comments Spherocyte (test code = Rare A Spherocyte) *ABN*(09/18/2011 08:52:00) [facility] CampusQvuxiwuRCVUCWKHDX1562-56-48 13:52:00 Test Item Value Reference Range Interpretation Comments Large Plt (test code = Slight *ABN*(09/18/2011 A Large Plt) 08:52:00) [facility] CampusQcvrxagJYBQHWQEFG7570-81-09 13:52:00 Test Item Value Reference Range Interpretation Comments Microcyte (test code = 1+ *ABN*(09/18/2011 A Microcyte) 08:52:00) [facility] CampusOzwcjgeLGOKAKMKSX3861-84-38 13:52:00 Test Item Value Reference Range Interpretation Comments Schistocyte (test code = Schistocyte) Rare [facility] CampusEqynmunFWALXLMCRW2115-67-48 13:52:00 Test Item Value Reference Range Interpretation Comments Macrocyte (test code = 1+ *ABN*(09/18/2011 A Macrocyte) 08:52:00) [facility] CampusIldgdffJYEBIATQNL8277-91-37 13:52:00 Test Item Value Reference Range Interpretation Comments Lymphocytes # (test code = Lymphocytes 0.6 1.0-5.5 L #) [facility] CampusMcycvjpGUZEIBLCPD8113-11-03 13:52:00 Test Item Value Reference Range Interpretation Comments Segs-Bands # (test code = Segs-Bands #) 10.8 1.5-8.1 H [facility] CampusIuttthrNAEUHFISQP3955-27-80 13:52:00 Test Item Value Reference Range Interpretation Comments Basophils # (test code 0.0 See_Comment N [Aut omated message] The = Basophils #) system which generated this result tra nsmitted reference range : <=0.2. The reference r leo was not used to int erpret this result as normal/abnormal . [facility]GwviqkkVTJPCUBSPQ5964-53-99 13:52:00 Test Item Value Reference Range Interpretation Comments Anisocyte (test code = 1+ *ABN*(09/18/2011 A Anisocyte) 08:52:00) [facility] HospitalMkkpzpsZXHYNHGHOA3272-49-07 13:52:00 Test Item Value Reference Range Interpretation Comments CDC-HIV 1/2 Ab (test Negative *NA*(09/18/2011 code = CDC-HIV 1/2 08:52:00) Ab) [facility]SjzrgylZJKUFBZCW6472-76-42 13:52:00 Test Item Value Reference Range Interpretation Comments pO2 Roberth (test code = pO2 Roberth) 24 20-49 N [facility]manAbjxfkbBTBSZTHNH9736-94-24 13:52:00 Test Item Value Reference Range Interpretation Comments HCO3 Roberth (test code = HCO3 Roberth) 32.0 22.0-26.0 H [facility]manZsvxhftFQFEMFVTA0854-64-06 13:52:00 Test Item Value Reference Range Interpretation Comments pCO2 Roberth (test code = pCO2 Roberth) 44 38-52 N [facility]manTkwxvsqNBXERHPFZ2817-83-88 13:52:00 Test Item Value Reference Range Interpretation Comments BE Roberth (test code = 7 See_Comment H [Automa rohit message] The BE Roberth) system which ge nerated this result transmit rohit reference range : <=2. The reference range was not used to interpr et this result as reji l/abnormal. [facility]manZfrypzwMCSNIQGCC6153-18-39 13:52:00 Test Item Value Reference Range Interpretation Comments O2 Sat Roberth (test code = O2 Sat Roberth) 48.0 40.0-70.0 N [facility]manLnrzyazTZAJQGMEF4342-47-14 13:52:00 Test Item Value Reference Range Interpretation Comments Temp Roberth (test code = Temp Roberth) 37.0 [facility]MgcmamsRKLFRNNRO0816-11-28 13:52:00 Test Item Value Reference Range Interpretation Comments pH Roberth (test code = pH Roberth) 7.47 7.28-7.42 H [facility]manBxsszaeECHKTPKIY5978-97-09 13:52:00 Test Item Value Reference Range Interpretation Comments Calcium Lvl (test code = Calcium Lvl) 10.1 8.5-10.5 N [facility]manAomwhluMEZGZHESU3886-03-53 13:52:00 Test Item Value Reference Range Interpretation Comments Chloride Lvl (test code = Chloride Lvl) 92 95-109 L [facility]manKhvzmiqVVMOBIQNN5513-46-01 13:52:00 Test Item Value Reference Range Interpretation Comments CO2 (test code = CO2) 30 24-32 N [facility]manHjmmpbeHUHLZKWHC2461-17-49 13:52:00 Test Item Value Reference Range Interpretation Comments Potassium Lvl (test code = Potassium 3.5 3.5-5.1 N Lvl) [facility]manNacdksmRVDRXBUCV0138-95-55 13:52:00 Test Item Value Reference Range Interpretation Comments Sodium Lvl (test code = Sodium Lvl) 133 135-145 L [facility]KwvoojvTHJMSOHRB2635-37-31 13:52:00 Test Item Value Reference Range Interpretation Comments Creatinine Lvl (test code = Creatinine 1.3 0.5-1.4 N Lvl) [facility]manMjucbtyMXEFFWBOA9319-96-96 13:52:00 Test Item Value Reference Range Interpretation Comments Glucose Lvl (test code = Glucose Lvl) 383 70-99 H [facility]manUtmlwrpJHCFLUJJT9827-16-43 13:52:00 Test Item Value Reference Range Interpretation Comments BUN (test code = BUN) 17 7-22 N [facility]manFeswwgnXQMIWMIGB7287-30-50 13:52:00 Test Item Value Reference Range Interpretation Comments AGAP (test code = AGAP) 14.5 10.0-20.0 N [facility] CampusLswhqddVRTYCATEIC1104-27-38 13:52:00 Test Item Value Reference Range Interpretation Comments MPV (test code = MPV) 12.0 7.4-10.4 H [facility] CampusDayzuixLWRCHORPKQ8446-64-33 13:52:00 Test Item Value Reference Range Interpretation Comments Platelet (test code = Platelet) 226 133-450 N [facility] CampusImgejygHCPWWKOTGB5944-24-92 13:52:00 Test Item Value Reference Range Interpretation Comments MCHC (test code = MCHC) 33.7 32.0-36.0 N [facility] CampusIvsuixnSUEROBGJBS5185-15-54 13:52:00 Test Item Value Reference Range Interpretation Comments MCH (test code = MCH) 28.5 pg 27.0-31.0 N [facility] CampusZfyiomcTRAONLCJJI2089-16-51 13:52:00 Test Item Value Reference Range Interpretation Comments RDW (test code = RDW) 15.1 11.5-14.5 H [facility] CampusQhvyvcsUXVZGUEZSJ3597-29-58 13:52:00 Test Item Value Reference Range Interpretation Comments MCV (test code = MCV) 84.6 81.0-99.0 N [facility] CampusKdodevxTSUXJWXKSX2613-67-24 13:52:00 Test Item Value Reference Range Interpretation Comments Hct (test code = Hct) 36.4 36.0-48.0 N [facility] CampusFqshnhqTXNIUADYQL4520-80-32 13:52:00 Test Item Value Reference Range Interpretation Comments Hgb (test code = Hgb) 12.3 12.0-16.0 N [facility] CampusRwhvbciZQBGUMSPKQ4446-77-81 13:52:00 Test Item Value Reference Range Interpretation Comments RBC (test code = RBC) 4.30 4.20-5.40 N [facility] CampusYdabzesJUGOYRSMXD2511-23-35 13:52:00 Test Item Value Reference Range Interpretation Comments WBC (test code = WBC) 11.7 3.7-10.4 H [facility]MvvexgqUQEFBQPUGW3560-26-83 13:52:00 Test Item Value Reference Range Interpretation Comments Monocytes (test code = Monocytes) 2.9 2.0-12.0 N [facility] CampusMvapcvyMZWDSDABWS3005-12-80 13:52:00 Test Item Value Reference Range Interpretation Comments Eosinophils (test code = 0.2 See_Comment N [A utomated message] The Eosinophils) system which ge nerated this result tra nsmitted reference range : <=4.0. The reference r leo was not used to int erpret this result as normal/abnormal . [facility] CampusZzdrknuRHLDQIXRQW2742-92-13 13:52:00 Test Item Value Reference Range Interpretation Comments Basophils (test code = 0.0 See_Comment N [Aut omated message] The Basophils) system which ge nerated this result tra nsmitted reference range : <=1.0. The reference r leo was not used to int erpret this result as normal/abnormal . [facility] CampusRyzrohoKRVYOTKIOE1271-13-34 13:52:00 Test Item Value Reference Range Interpretation Comments Eosinophils # (test code 0.0 See_Comment N [A utomated message] The = Eosinophils #) system whic h generated this result tra nsmitted reference range : <=0.5. The reference r leo was not used to int erpret this result as normal/abnormal . [facility] CampusOiaxfurZMKWWYDGGG2044-81-94 13:52:00 Test Item Value Reference Range Interpretation Comments Monocytes # (test code 0.3 See_Comment N [Aut omated message] The = Monocytes #) system which generated this result tra nsmitted reference range : <=0.8. The reference r leo was not used to int erpret this result as normal/abnormal . [facility] CampusQrlbdzxJTANWLZPXV2907-88-09 13:52:00 Test Item Value Reference Range Interpretation Comments Segs (test code = Segs) 92.0 45.0-75.0 H [facility] CampusNzagyydDCJQBWWKGQ5376-87-78 13:52:00 Test Item Value Reference Range Interpretation Comments Lymphocytes (test code = Lymphocytes) 4.9 20.0-40.0 L [facility] CampusGtkqqcfHHMGXMVAOO6455-53-79 13:52:00 Test Item Value Reference Range Interpretation Comments Spherocyte (test code = Rare A Spherocyte) *ABN*(09/18/2011 08:52:00) [facility] CampusAtimcteKEYUEWDFNM8414-42-98 13:52:00 Test Item Value Reference Range Interpretation Comments Large Plt (test code = Slight *ABN*(09/18/2011 A Large Plt) 08:52:00) [facility] CampusOlujeglEHGZWVHZSA8556-69-53 13:52:00 Test Item Value Reference Range Interpretation Comments Microcyte (test code = 1+ *ABN*(09/18/2011 A Microcyte) 08:52:00) [facility] CampusGdfezptMSSHSBOZXV8600-60-63 13:52:00 Test Item Value Reference Range Interpretation Comments Schistocyte (test code = Schistocyte) Rare [facility] CampusMxcmxiuIHHCOZWTVI0387-40-69 13:52:00 Test Item Value Reference Range Interpretation Comments Macrocyte (test code = 1+ *ABN*(09/18/2011 A Macrocyte) 08:52:00) [facility] CampusWbtafzdPQMPEQUZYV4977-01-57 13:52:00 Test Item Value Reference Range Interpretation Comments Lymphocytes # (test code = Lymphocytes 0.6 1.0-5.5 L #) [facility] CampusWquwqfeDEFBVXYSPR1160-38-04 13:52:00 Test Item Value Reference Range Interpretation Comments Segs-Bands # (test code = Segs-Bands #) 10.8 1.5-8.1 [facility]ODDC3435-[facility]-08 13:52:00 Test Item Value Reference Range Interpretation Comments Basophils # (test code 0.0 See_Comment N [Aut omated message] The = Basophils #) system which generated this result tra nsmitted reference range : <=0.2. The reference r leo was not used to int erpret this result as normal/abnormal . [facility] HospitalUgdtonzAHKJUZSHDC7672-60-14 13:52:00 Test Item Value Reference Range Interpretation Comments Anisocyte (test code = 1+ *ABN*(09/18/2011 A Anisocyte) 08:52:00) [facility] HospitalLuyvjpnNWOVFLODON4122-79-05 13:52:00 Test Item Value Reference Range Interpretation Comments CDC-HIV 1/2 Ab (test Negative *NA*(09/18/2011 code = CDC-HIV 1/2 08:52:00) Ab) [facility] GLUCOSE [id number] 17:34:00 Test Item Value Reference Range Interpretation Comments Gluc POC Lifscn (test code = Gluc POC 215 70-99 H Lifscn) [facility] GLUCOSE [id number] 17:34:00 Test Item Value Reference Range Interpretation Comments Comment1 (test code = Comment1) Notify RN/ [facility] GLUCOSE [id number] 17:34:00 Test Item Value Reference Range Interpretation Comments Gluc POC Lifscn (test code = Gluc POC 215 70-99 H Lifscn) [facility] GLUCOSE [id number] 17:34:00 Test Item Value Reference Range Interpretation Comments Comment1 (test code = Comment1) Notify RN/ [facility] GLUCOSE [id number] 17:34:00 Test Item Value Reference Range Interpretation Comments Gluc POC Lifscn (test code = Gluc POC 215 70-99 H Lifscn) [facility] GLUCOSE [id number] 17:34:00 Test Item Value Reference Range Interpretation Comments Comment1 (test code = Comment1) Notify RN/ [facility] GLUCOSE [id number] 17:34:00 Test Item Value Reference Range Interpretation Comments Gluc POC Lifscn (test code = Gluc POC 215 70-99 H Lifscn) [facility] GLUCOSE [id number] 17:34:00 Test Item Value Reference Range Interpretation Comments Comment1 (test code = Comment1) Notify RN/ [facility] GLUCOSE [id number] 17:34:00 Test Item Value Reference Range Interpretation Comments Gluc POC Lifscn (test code = Gluc POC 215 70-99 H Lifscn) [facility] GLUCOSE [id number] 17:34:00 Test Item Value Reference Range Interpretation Comments Comment1 (test code = Comment1) Notify RN/ [facility] GLUCOSE [id number] 11:43:00 Test Item Value Reference Range Interpretation Comments Comment1 (test code = Comment1) Notify RN/ [facility] GLUCOSE [id number] 11:43:00 Test Item Value Reference Range Interpretation Comments Gluc POC Lifscn (test code = Gluc POC 91 65-110 N Lifscn) [facility] GLUCOSE [id number] 11:43:00 Test Item Value Reference Range Interpretation Comments Comment1 (test code = Comment1) Notify RN/ [facility] GLUCOSE [id number] 11:43:00 Test Item Value Reference Range Interpretation Comments Gluc POC Lifscn (test code = Gluc POC 91 65-110 N Lif[facility]n) [facility] GLUCOSE [id number] 11:43:00 Test Item Value Reference Range Interpretation Comments Comment1 (test code = Comment1) Notify RN/ [facility] GLUCOSE [id number] 11:43:00 Test Item Value Reference Range Interpretation Comments Gluc POC Lifscn (test code = Gluc POC 91 65-110 N Lifscn) [facility] GLUCOSE [id number] 11:43:00 Test Item Value Reference Range Interpretation Comments Comment1 (test code = Comment1) Notify RN/ [facility] GLUCOSE [id number] 11:43:00 Test Item Value Reference Range Interpretation Comments Gluc POC Lifscn (test code = Gluc POC 91 65-110 N Lif[facility]) [facility] GLUCOSE [id number] 11:43:00 Test Item Value Reference Range Interpretation Comments Comment1 (test code = Comment1) Notify RN/ [facility] GLUCOSE [id number] 11:43:00 Test Item Value Reference Range Interpretation Comments Gluc POC Lifscn (test code = Gluc POC 91 65-110 N Lif[facility]) [facility] GLUCOSE [id number] 02:45:00 Test Item Value Reference Range Interpretation Comments Comment1 (test code = Comment1) Notify RN/ [facility] GLUCOSE [id number] 02:45:00 Test Item Value Reference Range Interpretation Comments Gluc POC Lifscn (test code = Gluc POC 148 65-110 H Lifscn) [facility] GLUCOSE [id number] 02:45:00 Test Item Value Reference Range Interpretation Comments Comment1 (test code = Comment1) Notify RN/ [facility] GLUCOSE [id number] 02:45:00 Test Item Value Reference Range Interpretation Comments Gluc POC Lifscn (test code = Gluc POC 148 65-110 H Lifscn) [facility] GLUCOSE [id number] 02:45:00 Test Item Value Reference Range Interpretation Comments Comment1 (test code = Comment1) Notify RN/ [facility] GLUCOSE [id number] 02:45:00 Test Item Value Reference Range Interpretation Comments Gluc POC Lifscn (test code = Gluc POC 148 65-110 H Lifscn) [facility] GLUCOSE [id number] 02:45:00 Test Item Value Reference Range Interpretation Comments Comment1 (test code = Comment1) Notify RN/ [facility] GLUCOSE [id number] 02:45:00 Test Item Value Reference Range Interpretation Comments Gluc POC Lifscn (test code = Gluc POC 148 65-110 H Lifscn) [facility] GLUCOSE [id number] 02:45:00 Test Item Value Reference Range Interpretation Comments Comment1 (test code = Comment1) Notify RN/ [facility] GLUCOSE [id number] 02:45:00 Test Item Value Reference Range Interpretation Comments Gluc POC Lifscn (test code = Gluc POC 148 65-110 H Lifscn) [facility]TnxnogpGKPOCDRSP7638-29-44 08:47:00 Test Item Value Reference Range Interpretation Comments Sodium Lvl (test code = Sodium Lvl) 143 135-145 N [facility]ZqognolSUMNBXSCB9203-01-90 08:47:00 Test Item Value Reference Range Interpretation Comments Glucose Lvl (test code = Glucose Lvl) 105 [facility]FwwddseJNPKVTNAH5186-39-68 08:47:00 Test Item Value Reference Range Interpretation Comments CO2 (test code = CO2) 29 24-32 N [facility]EehlnueAZQLTIVQH8099-47-81 08:47:00 Test Item Value Reference Range Interpretation Comments Chloride Lvl (test code = Chloride Lvl) 103 95-109 N [facility]EzltpfkPVRURUAJT8646-79-78 08:47:00 Test Item Value Reference Range Interpretation Comments BUN (test code = BUN) 10 7-22 N [facility]VheuxxmCQUZTDOGL7034-33-43 08:47:00 Test Item Value Reference Range Interpretation Comments Potassium Lvl (test code = Potassium 3.8 3.5-5.1 N Lvl) [facility]manYkzneunZTFANNCGE2460-61-28 08:47:00 Test Item Value Reference Range Interpretation Comments Creatinine Lvl (test code = Creatinine 0.6 0.5-1.4 N Lvl) [facility]manLtxipilCXVPOJCYT0787-14-47 08:47:00 Test Item Value Reference Range Interpretation Comments Calcium Lvl (test code = Calcium Lvl) 8.5 8.5-10.5 N [facility]manMknxktlRIBVBMWSF1262-62-37 08:47:00 Test Item Value Reference Range Interpretation Comments AGAP (test code = AGAP) 14.8 10.0-20.0 N [facility] CampusAesldfpYKOYSJEWPN5878-37-74 08:47:00 Test Item Value Reference Range Interpretation Comments MCH (test code = MCH) 28.9 pg 27.0-31.0 N [facility] CampusHtvwwkjTAATFHSYFQ4929-06-47 08:47:00 Test Item Value Reference Range Interpretation Comments MCV (test code = MCV) 82.1 81.0-99.0 N [facility] CampusNmktrqsQPCADZFWRY7921-08-62 08:47:00 Test Item Value Reference Range Interpretation Comments Hct (test code = Hct) 25.9 36.0-48.0 L [facility] CampusShxhcftAWDWAYFZAJ2344-38-42 08:47:00 Test Item Value Reference Range Interpretation Comments Platelet (test code = Platelet) 233 133-450 N [facility] CampusNlaxcioXBEGOFOQXI2718-87-23 08:47:00 Test Item Value Reference Range Interpretation Comments RDW (test code = RDW) 14.5 11.5-14.5 N [facility] CampusLletiioRBQAKMWVKE1918-61-51 08:47:00 Test Item Value Reference Range Interpretation Comments MCHC (test code = MCHC) 35.2 32.0-36.0 N [facility] CampusOrkikuxLZTNKZLIQL5923-28-37 08:47:00 Test Item Value Reference Range Interpretation Comments Hgb (test code = Hgb) 9.1 12.0-16.0 L [facility] CampusSckimvuNNIDGWFPEK5143-69-83 08:47:00 Test Item Value Reference Range Interpretation Comments RBC (test code = RBC) 3.15 4.20-5.40 L [facility] CampusZhiymxiCYXOGPWFXQ1222-89-79 08:47:00 Test Item Value Reference Range Interpretation Comments MPV (test code = MPV) 9.0 7.4-10.4 N [facility] CampusGndxmyeAVRQFWOSPB2277-19-92 08:47:00 Test Item Value Reference Range Interpretation Comments WBC (test code = WBC) 6.3 3.7-10.4 N [facility] CampusDbmnxukBFVJYCKHXR9316-64-87 08:47:00 Test Item Value Reference Range Interpretation Comments Eosinophils # (test code 0.0 See_Comment N [A utomated message] The = Eosinophils #) system whic h generated this result tra nsmitted reference range : <=0.5. The reference r leo was not used to int erpret this result as normal/abnormal . [facility] CampusSutmaboVHHZWLECFV1805-87-53 08:47:00 Test Item Value Reference Range Interpretation Comments Basophils # (test code 0.0 See_Comment N [Aut omated message] The = Basophils #) system which generated this result tra nsmitted reference range : <=0.2. The reference r leo was not used to int erpret this result as normal/abnormal . [facility] CampusHyxuvjrNKEXWMZBVM0819-55-07 08:47:00 Test Item Value Reference Range Interpretation Comments Segs-Bands # (test code = Segs-Bands #) 3.8 1.5-8.1 N [facility] CampusVvnnlpuPVKVIINXWW6162-94-48 08:47:00 Test Item Value Reference Range Interpretation Comments Lymphocytes # (test code = Lymphocytes 2.0 1.0-5.5 N #) [facility] CampusPfqbwklLDGSQAFLZD1146-28-78 08:47:00 Test Item Value Reference Range Interpretation Comments Basophils (test code = 0.5 See_Comment N [Aut omated message] The Basophils) system which ge nerated this result tra nsmitted reference range : <=1.0. The reference r leo was not used to int erpret this result as normal/abnormal . [facility] CampusDwxuzggRKBUPVLGIB1648-39-13 08:47:00 Test Item Value Reference Range Interpretation Comments Eosinophils (test code = 0.7 See_Comment N [A utomated message] The Eosinophils) system which ge nerated this result tra nsmitted reference range : <=4.0. The reference r leo was not used to int erpret this result as normal/abnormal . [facility] CampusYdpbshmQESWDZWGXV9643-71-43 08:47:00 Test Item Value Reference Range Interpretation Comments Monocytes (test code = Monocytes) 6.2 2.0-12.0 N [facility] CampusKqcscwgZXHJHVVBDS4132-76-59 08:47:00 Test Item Value Reference Range Interpretation Comments Segs (test code = Segs) 61.1 45.0-75.0 N [facility] CampusIxnoelyFAYYNFZVFY9724-94-52 08:47:00 Test Item Value Reference Range Interpretation Comments Lymphocytes (test code = Lymphocytes) 31.5 20.0-40.0 N [facility] CampusXcrbjawKDRUVUEZLE4803-21-52 08:47:00 Test Item Value Reference Range Interpretation Comments Monocytes # (test code 0.4 See_Comment N [Aut omated message] The = Monocytes #) system which generated this result tra nsmitted reference range : <=0.8. The reference r leo was not used to int erpret this result as normal/abnormal . [facility]IpkequnQVOAHHAKR0678-60-98 08:47:00 Test Item Value Reference Range Interpretation Comments Sodium Lvl (test code = Sodium Lvl) 143 135-145 N [facility]QcssfwqICZDNCLQE9384-78-30 08:47:00 Test Item Value Reference Range Interpretation Comments Glucose Lvl (test code = Glucose Lvl) 105 [facility]manRxsxpvdXYYHHVTWT4604-02-82 08:47:00 Test Item Value Reference Range Interpretation Comments CO2 (test code = CO2) 29 24-32 N [facility]manInnmdmaZJQWIGYEQ6723-78-62 08:47:00 Test Item Value Reference Range Interpretation Comments Chloride Lvl (test code = Chloride Lvl) 103 95-109 N [facility]manMaplfnzBIIHRVONX9950-56-11 08:47:00 Test Item Value Reference Range Interpretation Comments BUN (test code = BUN) 10 7-22 N [facility]manTcyroxzEIJCTHVUI5539-31-55 08:47:00 Test Item Value Reference Range Interpretation Comments Potassium Lvl (test code = Potassium 3.8 3.5-5.1 N Lvl) [facility]manOtkahrzNKJVDOQAT2652-33-00 08:47:00 Test Item Value Reference Range Interpretation Comments Creatinine Lvl (test code = Creatinine 0.6 0.5-1.4 N Lvl) [facility]manEnwpkusAKHPNSNDB0039-99-85 08:47:00 Test Item Value Reference Range Interpretation Comments Calcium Lvl (test code = Calcium Lvl) 8.5 8.5-10.5 N [facility]manWzufsybEYDAIIZEX4373-33-41 08:47:00 Test Item Value Reference Range Interpretation Comments AGAP (test code = AGAP) 14.8 10.0-20.0 N [facility] CampusTnsuyixVMSBWFXVXU9742-19-03 08:47:00 Test Item Value Reference Range Interpretation Comments MCH (test code = MCH) 28.9 pg 27.0-31.0 N [facility] CampusYiwlwghLBUXEHIOHC8426-82-54 08:47:00 Test Item Value Reference Range Interpretation Comments MCV (test code = MCV) 82.1 81.0-99.0 N [facility] CampusDpuqvtyRNQHGSLBAJ8877-35-98 08:47:00 Test Item Value Reference Range Interpretation Comments Hct (test code = Hct) 25.9 36.0-48.0 L [facility] CampusUhedvqwSYSBPFHLVK5095-50-46 08:47:00 Test Item Value Reference Range Interpretation Comments Platelet (test code = Platelet) 233 133-450 N [facility] CampusFvubvzfEERTAKGWNY2975-43-70 08:47:00 Test Item Value Reference Range Interpretation Comments RDW (test code = RDW) 14.5 11.5-14.5 N [facility] CampusGaismakDLXIDIPYNF2670-93-15 08:47:00 Test Item Value Reference Range Interpretation Comments MCHC (test code = MCHC) 35.2 32.0-36.0 N [facility] CampusHxdvwhiXOOEFTSCXB3300-14-68 08:47:00 Test Item Value Reference Range Interpretation Comments Hgb (test code = Hgb) 9.1 12.0-16.0 L [facility] CampusGtdssgqTZVLCCSWEF2313-27-30 08:47:00 Test Item Value Reference Range Interpretation Comments RBC (test code = RBC) 3.15 4.20-5.40 L [facility] CampusNzbfnatOBWLBXNZHH9786-67-18 08:47:00 Test Item Value Reference Range Interpretation Comments MPV (test code = MPV) 9.0 7.4-10.4 N [facility] CampusNezleciRWVRHREWEH7560-89-66 08:47:00 Test Item Value Reference Range Interpretation Comments WBC (test code = WBC) 6.3 3.7-10.4 N [facility] CampusDkyaozwANMGQCRVJX8193-64-90 08:47:00 Test Item Value Reference Range Interpretation Comments Eosinophils # (test code 0.0 See_Comment N [A utomated message] The = Eosinophils #) system whic h generated this result tra nsmitted reference range : <=0.5. The reference r leo was not used to int erpret this result as normal/abnormal . [facility] CampusNsnzzxiVXHVUTTDMU1095-80-79 08:47:00 Test Item Value Reference Range Interpretation Comments Basophils # (test code 0.0 See_Comment N [Aut omated message] The = Basophils #) system which generated this result tra nsmitted reference range : <=0.2. The reference r leo was not used to int erpret this result as normal/abnormal . [facility] CampusHxxfzggGIENEEJKSM1566-86-74 08:47:00 Test Item Value Reference Range Interpretation Comments Segs-Bands # (test code = Segs-Bands #) 3.8 1.5-8.1 N [facility] CampusBhvrhjwCZUUZHSESK6341-90-48 08:47:00 Test Item Value Reference Range Interpretation Comments Lymphocytes # (test code = Lymphocytes 2.0 1.0-5.5 N #) [facility] CampusCvqwgmpMTCDDSFJOE0557-56-86 08:47:00 Test Item Value Reference Range Interpretation Comments Basophils (test code = 0.5 See_Comment N [Aut omated message] The Basophils) system which ge nerated this result tra nsmitted reference range : <=1.0. The reference r leo was not used to int erpret this result as normal/abnormal . [facility] CampusYblfftyNXKJLLZJVL0460-54-31 08:47:00 Test Item Value Reference Range Interpretation Comments Eosinophils (test code = 0.7 See_Comment N [A utomated message] The Eosinophils) system which ge nerated this result tra nsmitted reference range : <=4.0. The reference r leo was not used to int erpret this result as normal/abnormal . [facility] CampusFyidkqqDFEVTNSZLO7318-47-49 08:47:00 Test Item Value Reference Range Interpretation Comments Monocytes (test code = Monocytes) 6.2 2.0-12.0 N [facility] CampusJowkorjNSETYTSUAV7260-93-19 08:47:00 Test Item Value Reference Range Interpretation Comments Segs (test code = Segs) 61.1 45.0-75.0 N [facility] CampusAokurarKYGLEFYQGI9931-99-23 08:47:00 Test Item Value Reference Range Interpretation Comments Lymphocytes (test code = Lymphocytes) 31.5 20.0-40.0 N [facility] CampusVorhckdJTLIBOPKGW8257-01-05 08:47:00 Test Item Value Reference Range Interpretation Comments Monocytes # (test code 0.4 See_Comment N [Aut omated message] The = Monocytes #) system which generated this result tra nsmitted reference range : <=0.8. The reference r leo was not used to int erpret this result as normal/abnormal . [facility]HyrhkmgTWPXGRQBF8610-70-15 08:47:00 Test Item Value Reference Range Interpretation Comments Sodium Lvl (test code = Sodium Lvl) 143 135-145 N [facility]JcnxyxkGOMSYHMDH6398-41-94 08:47:00 Test Item Value Reference Range Interpretation Comments Glucose Lvl (test code = Glucose Lvl) 105 [facility]NwjzntoKKOHBSSPE2668-99-00 08:47:00 Test Item Value Reference Range Interpretation Comments CO2 (test code = CO2) 29 24-32 N [facility]manAwqksotAMKEUYCLH4841-74-39 08:47:00 Test Item Value Reference Range Interpretation Comments Chloride Lvl (test code = Chloride Lvl) 103 95-109 N [facility]manPsnejpeBYUBLNGDZ3793-81-01 08:47:00 Test Item Value Reference Range Interpretation Comments BUN (test code = BUN) 10 7-22 N [facility]manZtzrhppJFTVRGOFK3725-05-88 08:47:00 Test Item Value Reference Range Interpretation Comments Potassium Lvl (test code = Potassium 3.8 3.5-5.1 N Lvl) [facility]manJezxxtcANYUIUYMZ5472-82-93 08:47:00 Test Item Value Reference Range Interpretation Comments Creatinine Lvl (test code = Creatinine 0.6 0.5-1.4 N Lvl) [facility]manGtxpjguNISWUUVNQ0743-63-98 08:47:00 Test Item Value Reference Range Interpretation Comments Calcium Lvl (test code = Calcium Lvl) 8.5 8.5-10.5 N [facility]XuknssuWIKBXKQFE2401-33-51 08:47:00 Test Item Value Reference Range Interpretation Comments AGAP (test code = AGAP) 14.8 10.0-20.0 N [facility] CampusDdphxsuTNXGGSPLHX4104-58-44 08:47:00 Test Item Value Reference Range Interpretation Comments MCH (test code = MCH) 28.9 pg 27.0-31.0 N [facility] CampusXzkteztNNHCKWEGEX5456-28-85 08:47:00 Test Item Value Reference Range Interpretation Comments MCV (test code = MCV) 82.1 81.0-99.0 N [facility] CampusUyfawznNMFJWPDLSA7166-11-95 08:47:00 Test Item Value Reference Range Interpretation Comments Hct (test code = Hct) 25.9 36.0-48.0 L [facility] CampusSbrictuTNDSQHMUCL1625-82-40 08:47:00 Test Item Value Reference Range Interpretation Comments Platelet (test code = Platelet) 233 133-450 N [facility] CampusSaospcbWJBZDAJEFT7724-62-66 08:47:00 Test Item Value Reference Range Interpretation Comments RDW (test code = RDW) 14.5 11.5-14.5 N [facility] CampusBkighgkFNJJABACJX8738-75-36 08:47:00 Test Item Value Reference Range Interpretation Comments MCHC (test code = MCHC) 35.2 32.0-36.0 N [facility] CampusCvqzvjfXGHOPYMQIW5378-51-70 08:47:00 Test Item Value Reference Range Interpretation Comments Hgb (test code = Hgb) 9.1 12.0-16.0 L [facility] CampusLmbieyoLAWMDEOCUS0857-60-17 08:47:00 Test Item Value Reference Range Interpretation Comments RBC (test code = RBC) 3.15 4.20-5.40 L [facility] CampusMrmcachZJZIMCYBZT9755-79-66 08:47:00 Test Item Value Reference Range Interpretation Comments MPV (test code = MPV) 9.0 7.4-10.4 N [facility] [facility]OcjdjlgXSNFBOZZNJ4316-76-42 08:47:00 Test Item Value Reference Range Interpretation Comments WBC (test code = WBC) 6.3 3.7-10.4 N [facility] CampusMsjyunaIRWADXRMXS7301-55-64 08:47:00 Test Item Value Reference Range Interpretation Comments Eosinophils # (test code 0.0 See_Comment N [A utomated message] The = Eosinophils #) system whic h generated this result tra nsmitted reference range : <=0.5. The reference r leo was not used to int erpret this result as normal/abnormal . [facility] CampusZpvzequCVSPWSBSMM2425-66-02 08:47:00 Test Item Value Reference Range Interpretation Comments Basophils # (test code 0.0 See_Comment N [Aut omated message] The = Basophils #) system which generated this result tra nsmitted reference range : <=0.2. The reference r leo was not used to int erpret this result as normal/abnormal . [facility] CampusGxegtloMEHPSRKGJE5442-22-46 08:47:00 Test Item Value Reference Range Interpretation Comments Segs-Bands # (test code = Segs-Bands #) 3.8 1.5-8.1 N [facility] CampusNingxnoJJVBHVXTGD9991-78-28 08:47:00 Test Item Value Reference Range Interpretation Comments Lymphocytes # (test code = Lymphocytes 2.0 1.0-5.5 N #) [facility] CampusZawxgufCGHVULPWZV1786-67-72 08:47:00 Test Item Value Reference Range Interpretation Comments Basophils (test code = 0.5 See_Comment N [Aut omated message] The Basophils) system which ge nerated this result tra nsmitted reference range : <=1.0. The reference r leo was not used to int erpret this result as normal/abnormal . [facility] CampusJtvsawpAIBMUVXHLJ5670-37-03 08:47:00 Test Item Value Reference Range Interpretation Comments Eosinophils (test code = 0.7 See_Comment N [A utomated message] The Eosinophils) system which ge nerated this result tra nsmitted reference range : <=4.0. The reference r leo was not used to int erpret this result as normal/abnormal . [facility] CampusHkxkskxYENQKKFCZC0530-15-14 08:47:00 Test Item Value Reference Range Interpretation Comments Monocytes (test code = Monocytes) 6.2 2.0-12.0 N [facility] CampusYokohngBZGOUEIQRC1946-52-24 08:47:00 Test Item Value Reference Range Interpretation Comments Segs (test code = Segs) 61.1 45.0-75.0 N [facility] CampusOybzgtwATYTOLLNWK2723-58-63 08:47:00 Test Item Value Reference Range Interpretation Comments Lymphocytes (test code = Lymphocytes) 31.5 20.0-40.0 N [facility] CampusScmfguzHMTINBCZKO5690-15-12 08:47:00 Test Item Value Reference Range Interpretation Comments Monocytes # (test code 0.4 See_Comment N [Aut omated message] The = Monocytes #) system which generated this result tra nsmitted reference range : <=0.8. The reference r leo was not used to int erpret this result as normal/abnormal . [facility]KngkypiTTUWVDLDG1001-[facility] 08:47:00 Test Item Value Reference Range Interpretation Comments Sodium Lvl (test code = Sodium Lvl) 143 135-145 N [facility]YikscblWLPIVLAQH8507-85-11 08:47:00 Test Item Value Reference Range Interpretation Comments Glucose Lvl (test code = Glucose Lvl) 105 [facility]MezfdhfRWUCYLPKZ7084-69-12 08:47:00 Test Item Value Reference Range Interpretation Comments CO2 (test code = CO2) 29 24-32 N [facility]GtmfocrJXFMOWLBX6177-17-75 08:47:00 Test Item Value Reference Range Interpretation Comments Chloride Lvl (test code = Chloride Lvl) 103 95-109 N [facility]XhrmdmpKDIFIDNUD7392-70-51 08:47:00 Test Item Value Reference Range Interpretation Comments BUN (test code = BUN) 10 7-22 N [facility]WgejbjvPFCSJEKLX4405-10-07 08:47:00 Test Item Value Reference Range Interpretation Comments Potassium Lvl (test code = Potassium 3.8 3.5-5.1 N Lvl) [facility]AmtshwfIEVTCXDQN0049-52-63 08:47:00 Test Item Value Reference Range Interpretation Comments Creatinine Lvl (test code = Creatinine 0.6 0.5-1.4 N Lvl) [facility]SrcrdjgDAAJXLFKQ0504-33-05 08:47:00 Test Item Value Reference Range Interpretation Comments Calcium Lvl (test code = Calcium Lvl) 8.5 8.5-10.5 N [facility]XepqlteXSITAYXEN7681-74-46 08:47:00 Test Item Value Reference Range Interpretation Comments AGAP (test code = AGAP) 14.8 10.0-20.0 N [facility] CampusFaamdprYAVDRBSXWD0091-57-56 08:47:00 Test Item Value Reference Range Interpretation Comments MCH (test code = MCH) 28.9 pg 27.0-31.0 N [facility] CampusVeywwgwRSRGNJZZTF6073-27-14 08:47:00 Test Item Value Reference Range Interpretation Comments MCV (test code = MCV) 82.1 81.0-99.0 N [facility] CampusAkiuyljFOJQJMUTRW8996-07-61 08:47:00 Test Item Value Reference Range Interpretation Comments Hct (test code = Hct) 25.9 36.0-48.0 L [facility] CampusRozyklbZFZGKOSZKJ6626-93-90 08:47:00 Test Item Value Reference Range Interpretation Comments Platelet (test code = Platelet) 233 133-450 N [facility] CampusJnjdjdbZINUXEMVLA0200-27-38 08:47:00 Test Item Value Reference Range Interpretation Comments RDW (test code = RDW) 14.5 11.5-14.5 N [facility] CampusIxneawfVSYTHUTZXU2609-78-26 08:47:00 Test Item Value Reference Range Interpretation Comments MCHC (test code = MCHC) 35.2 32.0-36.0 N [facility] CampusXwjvkfzVYOTCJNHTM4249-43-65 08:47:00 Test Item Value Reference Range Interpretation Comments Hgb (test code = Hgb) 9.1 12.0-16.0 L [facility] CampusDsmbrjmHWOUPZAXYD5865-55-47 08:47:00 Test Item Value Reference Range Interpretation Comments RBC (test code = RBC) 3.15 4.20-5.40 L [facility] CampusTrqmxxeXUKTMHSEYP5245-12-86 08:47:00 Test Item Value Reference Range Interpretation Comments MPV (test code = MPV) 9.0 7.4-10.4 N [facility] CampusScdxygcRZRZVHPTHN8293-94-17 08:47:00 Test Item Value Reference Range Interpretation Comments WBC (test code = WBC) 6.3 3.7-10.4 N [facility] CampusXempbltTJABFTNWDI7663-38-92 08:47:00 Test Item Value Reference Range Interpretation Comments Eosinophils # (test code 0.0 See_Comment N [A utomated message] The = Eosinophils #) system whic h generated this result tra nsmitted reference range : <=0.5. The reference r leo was not used to int erpret this result as normal/abnormal . [facility] CampusFiittrhZVRQTGLFCD7281-05-23 08:47:00 Test Item Value Reference Range Interpretation Comments Basophils # (test code 0.0 See_Comment N [Aut omated message] The = Basophils #) system which generated this result tra nsmitted reference range : <=0.2. The reference r leo was not used to int erpret this result as normal/abnormal . [facility] CampusSxcmtdkIIQGYTVABL7825-17-72 08:47:00 Test Item Value Reference Range Interpretation Comments Segs-Bands # (test code = Segs-Bands #) 3.8 1.5-8.1 N [facility] CampusPbqdinmEGUEUPCUEK1821-76-87 08:47:00 Test Item Value Reference Range Interpretation Comments Lymphocytes # (test code = Lymphocytes 2.0 1.0-5.5 N #) [facility] CampusPacczzqPDLSNFDUYQ4073-37-38 08:47:00 Test Item Value Reference Range Interpretation Comments Basophils (test code = 0.5 See_Comment N [Aut omated message] The Basophils) system which ge nerated this result tra nsmitted reference range : <=1.0. The reference r leo was not used to int erpret this result as normal/abnormal . [facility] CampusDbkbcdyAKWSNJUZLD0046-96-19 08:47:00 Test Item Value Reference Range Interpretation Comments Eosinophils (test code = 0.7 See_Comment N [A utomated message] The Eosinophils) system which ge nerated this result tra nsmitted reference range : <=4.0. The reference r leo was not used to int erpret this result as normal/abnormal . [facility] CampusDscrlhfMGWJKLKLAO2260-02-67 08:47:00 Test Item Value Reference Range Interpretation Comments Monocytes (test code = Monocytes) 6.2 2.0-12.0 N [facility] CampusGlqkostZAKIGRHNFC5015-26-79 08:47:00 Test Item Value Reference Range Interpretation Comments Segs (test code = Segs) 61.1 45.0-75.0 N [facility] CampusUnpoysbHXAIHRPNRB9296-55-69 08:47:00 Test Item Value Reference Range Interpretation Comments Lymphocytes (test code = Lymphocytes) 31.5 20.0-40.0 N [facility] CampusYlmyigcPHLIEJANMO4754-36-54 08:47:00 Test Item Value Reference Range Interpretation Comments Monocytes # (test code 0.4 See_Comment N [Aut omated message] The = Monocytes #) system which generated this result tra nsmitted reference range : <=0.8. The reference r leo was not used to int erpret this result as normal/abnormal . [facility]OehmjbxGIMPPASAT3387-94-75 08:47:00 Test Item Value Reference Range Interpretation Comments Sodium Lvl (test code = Sodium Lvl) 143 135-145 N [facility]PyededcFHZLQLXIN5741-30-83 08:47:00 Test Item Value Reference Range Interpretation Comments Glucose Lvl (test code = Glucose Lvl) 105 [facility]manJinybtyZYQDKVKZC5428-78-40 08:47:00 Test Item Value Reference Range Interpretation Comments CO2 (test code = CO2) 29 24-32 N [facility]manTgqfzxiGOITXVTNU5898-50-99 08:47:00 Test Item Value Reference Range Interpretation Comments Chloride Lvl (test code = Chloride Lvl) 103 95-109 N [facility]XektknhEIZFAFPPN2040-64-04 08:47:00 Test Item Value Reference Range Interpretation Comments BUN (test code = BUN) 10 7-22 N [facility]manStrceldMWMTWYSJL0419-41-08 08:47:00 Test Item Value Reference Range Interpretation Comments Potassium Lvl (test code = Potassium 3.8 3.5-5.1 N Lvl) [facility]manRabtrzoVLEKIJAQS7231-84-59 08:47:00 Test Item Value Reference Range Interpretation Comments Creatinine Lvl (test code = Creatinine 0.6 0.5-1.4 N Lvl) [facility]manRvjfwbdZQPBTDUFF0897-63-64 08:47:00 Test Item Value Reference Range Interpretation Comments Calcium Lvl (test code = Calcium Lvl) 8.5 8.5-10.5 N [facility]manRkbiezrABSEXQHRD5998-20-39 08:47:00 Test Item Value Reference Range Interpretation Comments AGAP (test code = AGAP) 14.8 10.0-20.0 N [facility] CampusLaifyliTOEWBRKPDF2773-79-35 08:47:00 Test Item Value Reference Range Interpretation Comments MCH (test code = MCH) 28.9 pg 27.0-31.0 N [facility] CampusBovgqauPXNALJXKVA9145-34-43 08:47:00 Test Item Value Reference Range Interpretation Comments MCV (test code = MCV) 82.1 81.0-99.0 N [facility] CampusPxyafjqYMJXDQQEIO4578-28-56 08:47:00 Test Item Value Reference Range Interpretation Comments Hct (test code = Hct) 25.9 36.0-48.0 L [facility] CampusNgykfyoEWJPYEIFUT1205-65-63 08:47:00 Test Item Value Reference Range Interpretation Comments Platelet (test code = Platelet) 233 133-450 N [facility] CampusBolxaujPFJKBSCUGE8468-51-36 08:47:00 Test Item Value Reference Range Interpretation Comments RDW (test code = RDW) 14.5 11.5-14.5 N [facility] CampusDsctufcDBYTZDCFVC6599-89-73 08:47:00 Test Item Value Reference Range Interpretation Comments MCHC (test code = MCHC) 35.2 32.0-36.0 N [facility] CampusRxwwhnxCUQJNGPUKT0490-33-53 08:47:00 Test Item Value Reference Range Interpretation Comments Hgb (test code = Hgb) 9.1 12.0-16.0 L [facility] CampusUljkgsoMITALFLQSO0251-12-57 08:47:00 Test Item Value Reference Range Interpretation Comments RBC (test code = RBC) 3.15 4.20-5.40 L [facility] CampusAowqzciXDFLWNHPTZ7305-97-27 08:47:00 Test Item Value Reference Range Interpretation Comments MPV (test code = MPV) 9.0 7.4-10.4 N [facility] CampusMbzzyznHQXPMTKGCR6872-56-21 08:47:00 Test Item Value Reference Range Interpretation Comments WBC (test code = WBC) 6.3 3.7-10.4 N [facility] CampusUhjvgzfCFPTZGNSXK5411-21-11 08:47:00 Test Item Value Reference Range Interpretation Comments Eosinophils # (test code 0.0 See_Comment N [A utomated message] The = Eosinophils #) system whic h generated this result tra nsmitted reference range : <=0.5. The reference r leo was not used to int erpret this result as normal/abnormal . [facility] CampusQrrggoeMEMGHHBPYF4999-21-46 08:47:00 Test Item Value Reference Range Interpretation Comments Basophils # (test code 0.0 See_Comment N [Aut omated message] The = Basophils #) system which generated this result tra nsmitted reference range : <=0.2. The reference r leo was not used to int erpret this result as normal/abnormal . [facility] CampusBtfmwguUJTXQZTOOG9292-04-46 08:47:00 Test Item Value Reference Range Interpretation Comments Segs-Bands # (test code = Segs-Bands #) 3.8 1.5-8.1 N [facility] CampusNjyhzfaUFQORRSZGQ0273-95-69 08:47:00 Test Item Value Reference Range Interpretation Comments Lymphocytes # (test code = Lymphocytes 2.0 1.0-5.5 N #) [facility] CampusXnsnbixQKRWLIGEPA5782-08-09 08:47:00 Test Item Value Reference Range Interpretation Comments Basophils (test code = 0.5 See_Comment N [Aut omated message] The Basophils) system which ge nerated this result tra nsmitted reference range : <=1.0. The reference r leo was not used to int erpret this result as normal/abnormal . [facility] CampusHjyinvsCCYGDFSMJM5446-23-82 08:47:00 Test Item Value Reference Range Interpretation Comments Eosinophils (test code = 0.7 See_Comment N [A utomated message] The Eosinophils) system which ge nerated this result tra nsmitted reference range : <=4.0. The reference r leo was not used to int erpret this result as normal/abnormal . [facility] CampusCupjdcaITMJXFDCVN3583-51-81 08:47:00 Test Item Value Reference Range Interpretation Comments Monocytes (test code = Monocytes) 6.2 2.0-12.0 N [facility] CampusErethvxHSMUKCAVSX1002-85-49 08:47:00 Test Item Value Reference Range Interpretation Comments Segs (test code = Segs) 61.1 45.0-75.0 N [facility] CampusQxxevhvTBQIUGLFKY6894-99-30 08:47:00 Test Item Value Reference Range Interpretation Comments Lymphocytes (test code = Lymphocytes) 31.5 20.0-40.0 N [facility] CampusVulvcvqRFKBOUCIKT6928-73-99 08:47:00 Test Item Value Reference Range Interpretation Comments Monocytes # (test code 0.4 See_Comment N [Aut omated message] The = Monocytes #) system which generated this result tra nsmitted reference range : <=0.8. The reference r leo was not used to int erpret this result as normal/abnormal . [facility]manHveineeLHIVQJGBN9601-40-69 10:54:00 Test Item Value Reference Range Interpretation Comments CO2 (test code = CO2) 27 24-32 N [facility]manUwzfmknKTIMBMPMH1803-55-91 10:54:00 Test Item Value Reference Range Interpretation Comments Chloride Lvl (test code = Chloride Lvl) 104 95-109 N [facility]QhbvswdJXBSCMMGT2596-01-32 10:54:00 Test Item Value Reference Range Interpretation Comments Creatinine Lvl (test code = Creatinine 0.5 0.5-1.4 N Lvl) [facility]JgxhvuzJSYUMAILP4110-60-38 10:54:00 Test Item Value Reference Range Interpretation Comments BUN (test code = BUN) 10 7-22 N [facility]manRclngakHWRXXGYEF9750-34-95 10:54:00 Test Item Value Reference Range Interpretation Comments Potassium Lvl (test code = Potassium 4.1 3.5-5.1 N Lvl) [facility]XpoxlquOKHOZGBHV8531-66-59 10:54:00 Test Item Value Reference Range Interpretation Comments Sodium Lvl (test code = Sodium Lvl) 141 135-145 N [facility]manLregetwFGFVKCFXA9562-90-90 10:54:00 Test Item Value Reference Range Interpretation Comments Glucose Lvl (test code = Glucose Lvl) 83 [facility]manZfvujhwYKLOFOHZO7831-03-49 10:54:00 Test Item Value Reference Range Interpretation Comments Calcium Lvl (test code = Calcium Lvl) 8.4 8.5-10.5 L [facility]manIsbjizhIBTYRAKNQ6232-10-66 10:54:00 Test Item Value Reference Range Interpretation Comments AGAP (test code = AGAP) 14.1 10.0-20.0 N [facility] CampusIdrzaytVBZDALBAOX6263-97-90 10:54:00 Test Item Value Reference Range Interpretation Comments Hct (test code = Hct) 35.5 36.0-48.0 L [facility] CampusTgfeifkXZSWVYBUXC2436-44-89 10:54:00 Test Item Value Reference Range Interpretation Comments WBC (test code = WBC) 4.7 3.7-10.4 N [facility] CampusVxlnonxKAMJPTZQHZ5489-69-03 10:54:00 Test Item Value Reference Range Interpretation Comments MCV (test code = MCV) 92.6 81.0-99.0 N [facility] CampusXulqepbBCYDJXMVAG7312-99-53 10:54:00 Test Item Value Reference Range Interpretation Comments MCH (test code = MCH) 31.4 pg 27.0-31.0 H [facility] CampusHnmqghgTGGUCSLNNP7698-04-04 10:54:00 Test Item Value Reference Range Interpretation Comments RBC (test code = RBC) 3.84 4.20-5.40 L [facility] CampusKanzgkgPWEWIMJRXW0429-82-94 10:54:00 Test Item Value Reference Range Interpretation Comments Hgb (test code = Hgb) 12.1 12.0-16.0 N [facility] CampusPielhykAFZDKOSBJM5469-67-93 10:54:00 Test Item Value Reference Range Interpretation Comments Platelet (test code = Platelet) 287 133-450 N [facility] CampusGlxobfkFLJFREBWSG1258-37-41 10:54:00 Test Item Value Reference Range Interpretation Comments RDW (test code = RDW) 12.7 11.5-14.5 N [facility] CampusLyieqshNPRKDSTAUQ1371-88-99 10:54:00 Test Item Value Reference Range Interpretation Comments MCHC (test code = MCHC) 33.9 32.0-36.0 N [facility] CampusVwmdgygTWNUEXIBCD0229-24-13 10:54:00 Test Item Value Reference Range Interpretation Comments MPV (test code = MPV) 7.2 7.4-10.4 L [facility] CampusOwrzmiiYIAWGRZDEU7632-83-79 10:54:00 Test Item Value Reference Range Interpretation Comments INR (test code = INR) 0.95 0.85-1.17 N [facility] CampusSiuyheyBTWEEOUZSZ5726-88-01 10:54:00 Test Item Value Reference Range Interpretation Comments PT (test code = PT) 12.7 s 12.0-14.7 N [facility] CampusVqfhtrrABWATPUFUO1534-31-82 10:54:00 Test Item Value Reference Range Interpretation Comments PTT (test code = PTT) 28.5 s 22.9-35.8 N [facility] CampusLmqvsxkKQFRXGDTNV7471-43-85 10:54:00 Test Item Value Reference Range Interpretation Comments Eosinophils # (test code 0.1 See_Comment N [A utomated message] The = Eosinophils #) system whic h generated this result tra nsmitted reference range : <=0.5. The reference r leo was not used to int erpret this result as normal/abnormal . [facility] CampusBsvxanjLPQLAXBADY8902-04-71 10:54:00 Test Item Value Reference Range Interpretation Comments Basophils # (test code 0.0 See_Comment N [Aut omated message] The = Basophils #) system which generated this result tra nsmitted reference range : <=0.2. The reference r leo was not used to int erpret this result as normal/abnormal . [facility] CampusUyckfarRJAKKMZYCA7346-12-85 10:54:00 Test Item Value Reference Range Interpretation Comments Basophils (test code = 0.4 See_Comment N [Aut omated message] The Basophils) system which ge nerated this result tra nsmitted reference range : <=1.0. The reference r leo was not used to int erpret this result as normal/abnormal . [facility] CampusAbyzrcfYFNMXWBBLD5352-68-00 10:54:00 Test Item Value Reference Range Interpretation Comments Segs-Bands # (test code = Segs-Bands #) 2.1 1.5-8.1 N [facility] CampusUhrxjlrEQQWAZKXUV7123-44-80 10:54:00 Test Item Value Reference Range Interpretation Comments Monocytes (test code = Monocytes) 9.0 2.0-12.0 N [facility] CampusAmkpabtAVXKERTZYS3008-31-89 10:54:00 Test Item Value Reference Range Interpretation Comments Eosinophils (test code = 2.4 See_Comment N [A utomated message] The Eosinophils) system which ge nerated this result tra nsmitted reference range : <=4.0. The reference r leo was not used to int erpret this result as normal/abnormal . [facility] CampusWnivruiMCYSUFSSXO7575-81-77 10:54:00 Test Item Value Reference Range Interpretation Comments Monocytes # (test code 0.4 See_Comment N [Aut omated message] The = Monocytes #) system which generated this result tra nsmitted reference range : <=0.8. The reference r leo was not used to int erpret this result as normal/abnormal . [facility] CampusZeetubtBYIWKQBVLR0866-06-01 10:54:00 Test Item Value Reference Range Interpretation Comments Lymphocytes # (test code = Lymphocytes 2.0 1.0-5.5 N #) [facility] CampusIxlgxicDFXGKUGMZR9283-60-91 10:54:00 Test Item Value Reference Range Interpretation Comments Lymphocytes (test code = Lymphocytes) 42.8 20.0-40.0 H [facility] CampusOgxfyywIJIZJXLZCC8463-89-29 10:54:00 Test Item Value Reference Range Interpretation Comments Segs (test code = Segs) 45.4 45.0-75.0 N [facility]BwmrgfxQFFNCIMVA2517-31-29 10:54:00 Test Item Value Reference Range Interpretation Comments CO2 (test code = CO2) 27 24-32 N [facility]OeqszhqKTXBAEJQF8588-66-35 10:54:00 Test Item Value Reference Range Interpretation Comments Chloride Lvl (test code = Chloride Lvl) 104 95-109 N [facility]manEaajydaZXZBHQRDB9155-58-37 10:54:00 Test Item Value Reference Range Interpretation Comments Creatinine Lvl (test code = Creatinine 0.5 0.5-1.4 N Lvl) [facility]manRinllotHVFZAOOOL3910-01-47 10:54:00 Test Item Value Reference Range Interpretation Comments BUN (test code = BUN) 10 7-22 N [facility]manSvpnowoZGJVVOMIT4861-35-87 10:54:00 Test Item Value Reference Range Interpretation Comments Potassium Lvl (test code = Potassium 4.1 3.5-5.1 N Lvl) [facility]manFpwbgsfTYKCYJWHN4213-56-36 10:54:00 Test Item Value Reference Range Interpretation Comments Sodium Lvl (test code = Sodium Lvl) 141 135-145 N [facility]JwkpvmpWTMVMNVYD8872-12-50 10:54:00 Test Item Value Reference Range Interpretation Comments Glucose Lvl (test code = Glucose Lvl) 83 [facility]XsqlbntWSMHHIYFK4324-89-89 10:54:00 Test Item Value Reference Range Interpretation Comments Calcium Lvl (test code = Calcium Lvl) 8.4 8.5-10.5 L [facility]manJkiuwrdSCFFWRASD1423-94-87 10:54:00 Test Item Value Reference Range Interpretation Comments AGAP (test code = AGAP) 14.1 10.0-20.0 N [facility] CampusKgewiviXAOCQDYLUX8663-44-48 10:54:00 Test Item Value Reference Range Interpretation Comments Hct (test code = Hct) 35.5 36.0-48.0 L [facility] CampusPkwrnjuXEJTIOUDFN9367-53-32 10:54:00 Test Item Value Reference Range Interpretation Comments WBC (test code = WBC) 4.7 3.7-10.4 N [facility] CampusQehbyydLSWKIWOPOH6765-13-85 10:54:00 Test Item Value Reference Range Interpretation Comments MCV (test code = MCV) 92.6 81.0-99.0 N [facility] CampusDqgppvyJRUJBRWJYC0125-38-92 10:54:00 Test Item Value Reference Range Interpretation Comments MCH (test code = MCH) 31.4 pg 27.0-31.0 H [facility] CampusYfhstbkKOKIDTQXCI6885-42-92 10:54:00 Test Item Value Reference Range Interpretation Comments RBC (test code = RBC) 3.84 4.20-5.40 L [facility] CampusYtijlfyQMZRMWHTKD3032-12-12 10:54:00 Test Item Value Reference Range Interpretation Comments Hgb (test code = Hgb) 12.1 12.0-16.0 N [facility] CampusKywijfmNVVNMXUUEC6053-72-89 10:54:00 Test Item Value Reference Range Interpretation Comments Platelet (test code = Platelet) 287 133-450 N [facility] CampusYsicwwvOEFJNONYEL2137-41-98 10:54:00 Test Item Value Reference Range Interpretation Comments RDW (test code = RDW) 12.7 11.5-14.5 N [facility] CampusBwvaiixZXIKNBBDSU4945-91-17 10:54:00 Test Item Value Reference Range Interpretation Comments MCHC (test code = MCHC) 33.9 32.0-36.0 N [facility] CampusJcdstbfMZJCTMOQWC5414-81-96 10:54:00 Test Item Value Reference Range Interpretation Comments MPV (test code = MPV) 7.2 7.4-10.4 L [facility] CampusTuqqiadRORFVGUAYM2667-50-16 10:54:00 Test Item Value Reference Range Interpretation Comments INR (test code = INR) 0.95 0.85-1.17 N [facility] CampusEurxpmcTGSABQMRZU3442-56-22 10:54:00 Test Item Value Reference Range Interpretation Comments PT (test code = PT) 12.7 s 12.0-14.7 N [facility] CampusMfealcuGQUHLIKIZY7154-61-29 10:54:00 Test Item Value Reference Range Interpretation Comments PTT (test code = PTT) 28.5 s 22.9-35.8 N [facility] CampusCqtzoyiCLCBHQVSUE4115-96-03 10:54:00 Test Item Value Reference Range Interpretation Comments Eosinophils # (test code 0.1 See_Comment N [A utomated message] The = Eosinophils #) system whic h generated this result tra nsmitted reference range : <=0.5. The reference r leo was not used to int erpret this result as normal/abnormal . [facility] CampusGsgqnojKNOALORHOL2188-33-69 10:54:00 Test Item Value Reference Range Interpretation Comments Basophils # (test code 0.0 See_Comment N [Aut omated message] The = Basophils #) system which generated this result tra nsmitted reference range : <=0.2. The reference r leo was not used to int erpret this result as normal/abnormal . [facility] CampusCygblzcFYHIJPLGYF9311-14-39 10:54:00 Test Item Value Reference Range Interpretation Comments Basophils (test code = 0.4 See_Comment N [Aut omated message] The Basophils) system which ge nerated this result tra nsmitted reference range : <=1.0. The reference r leo was not used to int erpret this result as normal/abnormal . [facility] CampusRvbcvefMRSSSFUVXK0532-72-29 10:54:00 Test Item Value Reference Range Interpretation Comments Segs-Bands # (test code = Segs-Bands #) 2.1 1.5-8.1 N [facility] CampusWthretyUAPBCRRKJF7497-35-64 10:54:00 Test Item Value Reference Range Interpretation Comments Monocytes (test code = Monocytes) 9.0 2.0-12.0 N [facility] CampusSepwrawDARNWKHTWI3057-70-25 10:54:00 Test Item Value Reference Range Interpretation Comments Eosinophils (test code = 2.4 See_Comment N [A utomated message] The Eosinophils) system which ge nerated this result tra nsmitted reference range : <=4.0. The reference r leo was not used to int erpret this result as normal/abnormal . [facility] CampusLusumwcOMEDEBTJZX6777-59-56 10:54:00 Test Item Value Reference Range Interpretation Comments Monocytes # (test code 0.4 See_Comment N [Aut omated message] The = Monocytes #) system which generated this result tra nsmitted reference range : <=0.8. The reference r leo was not used to int erpret this result as normal/abnormal . [facility] CampusQbxgnrxXQDMXZULNL4445-67-95 10:54:00 Test Item Value Reference Range Interpretation Comments Lymphocytes # (test code = Lymphocytes 2.0 1.0-5.5 N #) [facility] CampusYkunlqpTQUFSFVXYF5911-06-22 10:54:00 Test Item Value Reference Range Interpretation Comments Lymphocytes (test code = Lymphocytes) 42.8 20.0-40.0 H [facility] CampusLfltfdzAFBZMXHOGX9900-25-53 10:54:00 Test Item Value Reference Range Interpretation Comments Segs (test code = Segs) 45.4 45.0-75.0 N [facility]VyuuvjaKSZGOZUKB9496-11-39 10:54:00 Test Item Value Reference Range Interpretation Comments CO2 (test code = CO2) 27 24-32 N [facility]manJeysctfAGYOFUESY3911-02-22 10:54:00 Test Item Value Reference Range Interpretation Comments Chloride Lvl (test code = Chloride Lvl) 104 95-109 N [facility]manTxqkvuyZUPREHATZ5678-49-31 10:54:00 Test Item Value Reference Range Interpretation Comments Creatinine Lvl (test code = Creatinine 0.5 0.5-1.4 N Lvl) [facility]manBfpfsenKGYANBCSN5669-42-39 10:54:00 Test Item Value Reference Range Interpretation Comments BUN (test code = BUN) 10 7-22 N [facility]manNnuyfmpIRHHUPPCC2349-13-66 10:54:00 Test Item Value Reference Range Interpretation Comments Potassium Lvl (test code = Potassium 4.1 3.5-5.1 N Lvl) [facility]manYypvaxgSCHBBTXMO0953-09-25 10:54:00 Test Item Value Reference Range Interpretation Comments Sodium Lvl (test code = Sodium Lvl) 141 135-145 N [facility]manXxxlwjcTWYIANENP9249-35-33 10:54:00 Test Item Value Reference Range Interpretation Comments Glucose Lvl (test code = Glucose Lvl) 83 [facility]manLtapurwRIGGHBQOE8425-31-80 10:54:00 Test Item Value Reference Range Interpretation Comments Calcium Lvl (test code = Calcium Lvl) 8.4 8.5-10.5 L [facility]manTkoegpeIBXJXGSCK9639-04-39 10:54:00 Test Item Value Reference Range Interpretation Comments AGAP (test code = AGAP) 14.1 10.0-20.0 N [facility] CampusMsqlrwhBJXJQIYYLJ1772-41-73 10:54:00 Test Item Value Reference Range Interpretation Comments Hct (test code = Hct) 35.5 36.0-48.0 L [facility] CampusLdobideAPXXRZBMNQ0916-12-49 10:54:00 Test Item Value Reference Range Interpretation Comments WBC (test code = WBC) 4.7 3.7-10.4 N [facility] CampusRbussmgWBDPTSQXMY5915-67-08 10:54:00 Test Item Value Reference Range Interpretation Comments MCV (test code = MCV) 92.6 81.0-99.0 N [facility] CampusCtjectmOXYCUWTDND7486-94-14 10:54:00 Test Item Value Reference Range Interpretation Comments MCH (test code = MCH) 31.4 pg 27.0-31.0 H [facility] CampusPjotpcsHHFSCUSYTZ3541-49-09 10:54:00 Test Item Value Reference Range Interpretation Comments RBC (test code = RBC) 3.84 4.20-5.40 L [facility] CampusJbainilFKAHMBRGSV7433-75-60 10:54:00 Test Item Value Reference Range Interpretation Comments Hgb (test code = Hgb) 12.1 12.0-16.0 N [facility] CampusDmlywgtIHJJIABSUL9025-46-75 10:54:00 Test Item Value Reference Range Interpretation Comments Platelet (test code = Platelet) 287 133-450 N [facility] CampusNibmlwtBKCGCTNZXX3386-99-29 10:54:00 Test Item Value Reference Range Interpretation Comments RDW (test code = RDW) 12.7 11.5-14.5 [facility]2012-03-19 10:54:00 Test Item Value Reference Range Interpretation Comments MCHC (test code = MCHC) 33.9 32.0-36.0 N [facility] CampusCmvhjjyMGCAIZTOQI4393-82-57 10:54:00 Test Item Value Reference Range Interpretation Comments MPV (test code = MPV) 7.2 7.4-10.4 [facility]2012-03-19 10:54:00 Test Item Value Reference Range Interpretation Comments INR (test code = INR) 0.95 0.85-1.17 [facility]2012-03-19 10:54:00 Test Item Value Reference Range Interpretation Comments PT (test code = PT) 12.7 s 12.0-14.7 [facility]2012-03-19 10:54:00 Test Item Value Reference Range Interpretation Comments PTT (test code = PTT) 28.5 s 22.9-35.8 N [facility] CampusIxnkkswQJSTDCANIP1217-53-11 10:54:00 Test Item Value Reference Range Interpretation Comments Eosinophils # (test code 0.1 See_Comment N [A utomated message] The = Eosinophils #) system whic h generated this result tra nsmitted reference range : <=0.5. The reference r leo was not used to int erpret this result as normal/abnormal . [facility] CampusRhnpobtOCLZPADSWM6888-49-06 10:54:00 Test Item Value Reference Range Interpretation Comments Basophils # (test code 0.0 See_Comment N [Aut omated message] The = Basophils #) system which generated this result tra nsmitted reference range : <=0.2. The reference r leo was not used to int erpret this result as normal/abnormal . [facility] CampusQtnvsucIZLIKYEKPQ2207-74-79 10:54:00 Test Item Value Reference Range Interpretation Comments Basophils (test code = 0.4 See_Comment N [Aut omated message] The Basophils) system which ge nerated this result tra nsmitted reference range : <=1.0. The reference r leo was not used to int erpret this result as normal/abnormal . [facility] CampusVloqlutAGNGLUCYCZ8721-10-30 10:54:00 Test Item Value Reference Range Interpretation Comments Segs-Bands # (test code = Segs-Bands #) 2.1 1.5-8.1 N [facility] CampusQdsrungOKMDVJISEZ2924-65-76 10:54:00 Test Item Value Reference Range Interpretation Comments Monocytes (test code = Monocytes) 9.0 2.0-12.0 N [facility] CampusKuagqxvJGXPHQPCIG1920-32-68 10:54:00 Test Item Value Reference Range Interpretation Comments Eosinophils (test code = 2.4 See_Comment N [A utomated message] The Eosinophils) system which ge nerated this result tra nsmitted reference range : <=4.0. The reference r leo was not used to int erpret this result as normal/abnormal . [facility] CampusDgqtfywNQMEWJFLAA2465-88-37 10:54:00 Test Item Value Reference Range Interpretation Comments Monocytes # (test code 0.4 See_Comment N [Aut omated message] The = Monocytes #) system which generated this result tra nsmitted reference range : <=0.8. The reference r leo was not used to int erpret this result as normal/abnormal . [facility] CampusFpbitiqQZZOCPHJQB6422-35-08 10:54:00 Test Item Value Reference Range Interpretation Comments Lymphocytes # (test code = Lymphocytes 2.0 1.0-5.5 N #) [facility] CampusZwewvwoMAUCMSWABH8322-47-26 10:54:00 Test Item Value Reference Range Interpretation Comments Lymphocytes (test code = Lymphocytes) 42.8 20.0-40.0 H [facility] CampusCnysyuhEBCDKZJXZU3536-67-08 10:54:00 Test Item Value Reference Range Interpretation Comments Segs (test code = Segs) 45.4 45.0-75.0 N [facility]WbzagniYKVZTYQJJ1063-64-48 10:54:00 Test Item Value Reference Range Interpretation Comments CO2 (test code = CO2) 27 24-32 N [facility]manNwehzanPOUFAQWIV8134-10-85 10:54:00 Test Item Value Reference Range Interpretation Comments Chloride Lvl (test code = Chloride Lvl) 104 95-109 N [facility]PsyhfiuOFVQOYKLT7110-50-66 10:54:00 Test Item Value Reference Range Interpretation Comments Creatinine Lvl (test code = Creatinine 0.5 0.5-1.4 N Lvl) [facility]NdfqdfpZRHKOARHS8452-53-94 10:54:00 Test Item Value Reference Range Interpretation Comments BUN (test code = BUN) 10 7-22 N [facility]CfjiioaWIWDXHWBP9627-55-78 10:54:00 Test Item Value Reference Range Interpretation Comments Potassium Lvl (test code = Potassium 4.1 3.5-5.1 N Lvl) [facility]manCublgtrKKCOSEJEK2169-63-87 10:54:00 Test Item Value Reference Range Interpretation Comments Sodium Lvl (test code = Sodium Lvl) 141 135-145 N [facility]manNssisvfAAODYVHSO8659-22-80 10:54:00 Test Item Value Reference Range Interpretation Comments Glucose Lvl (test code = Glucose Lvl) 83 [facility]manOiqrbwyQLSWSOJSQ6043-25-33 10:54:00 Test Item Value Reference Range Interpretation Comments Calcium Lvl (test code = Calcium Lvl) 8.4 8.5-10.5 L [facility]FncdkmnNAOQDLSAY0529-22-24 10:54:00 Test Item Value Reference Range Interpretation Comments AGAP (test code = AGAP) 14.1 10.0-20.0 N [facility] CampusVbbjjsrTTCKZVKUFK4695-48-74 10:54:00 Test Item Value Reference Range Interpretation Comments Hct (test code = Hct) 35.5 36.0-48.0 L [facility] CampusDfcofeoLBPAZNICEH9641-33-98 10:54:00 Test Item Value Reference Range Interpretation Comments WBC (test code = WBC) 4.7 3.7-10.4 N [facility] CampusLfpgtxkHEEYSMSGLE7752-45-35 10:54:00 Test Item Value Reference Range Interpretation Comments MCV (test code = MCV) 92.6 81.0-99.0 N [facility] CampusGsrroawXVVEMQRMUZ5443-27-32 10:54:00 Test Item Value Reference Range Interpretation Comments MCH (test code = MCH) 31.4 pg 27.0-31.0 H [facility] CampusLrpormfSFVISRQVTL6023-02-27 10:54:00 Test Item Value Reference Range Interpretation Comments RBC (test code = RBC) 3.84 4.20-5.40 L [facility] CampusOsdylasOGVTCSTILS5863-31-81 10:54:00 Test Item Value Reference Range Interpretation Comments Hgb (test code = Hgb) 12.1 12.0-16.0 N [facility] CampusKfrtxfjFOGBSARFRB4087-80-33 10:54:00 Test Item Value Reference Range Interpretation Comments Platelet (test code = Platelet) 287 133-450 N [facility] CampusTgddiowJXVXSNBRYT1366-61-16 10:54:00 Test Item Value Reference Range Interpretation Comments RDW (test code = RDW) 12.7 11.5-14.5 N [facility] CampusUborabaOGEKRJVZQM4776-86-19 10:54:00 Test Item Value Reference Range Interpretation Comments MCHC (test code = MCHC) 33.9 32.0-36.0 N [facility] CampusCmhoaleBVGEBGISME7265-72-71 10:54:00 Test Item Value Reference Range Interpretation Comments MPV (test code = MPV) 7.2 7.4-10.4 L [facility] CampusAifqmrwQHGXUIJHCT8578-65-17 10:54:00 Test Item Value Reference Range Interpretation Comments INR (test code = INR) 0.95 0.85-1.17 N [facility] CampusXbunwjdZQHQAMRROM8880-92-04 10:54:00 Test Item Value Reference Range Interpretation Comments PT (test code = PT) 12.7 s 12.0-14.7 N [facility] CampusOavhzavDLUXAONRAP8179-84-15 10:54:00 Test Item Value Reference Range Interpretation Comments PTT (test code = PTT) 28.5 s 22.9-35.8 N [facility] CampusFpljzbhHJFUGSKNOI9453-21-87 10:54:00 Test Item Value Reference Range Interpretation Comments Eosinophils # (test code 0.1 See_Comment N [A utomated message] The = Eosinophils #) system whic h generated this result tra nsmitted reference range : <=0.5. The reference r leo was not used to int erpret this result as normal/abnormal . [facility] CampusPgvwlrjUEGITRIRXO5407-26-14 10:54:00 Test Item Value Reference Range Interpretation Comments Basophils # (test code 0.0 See_Comment N [Aut omated message] The = Basophils #) system which generated this result tra nsmitted reference range : <=0.2. The reference r leo was not used to int erpret this result as normal/abnormal . [facility] CampusCejzrguSKJCVPJISZ1041-15-89 10:54:00 Test Item Value Reference Range Interpretation Comments Basophils (test code = 0.4 See_Comment N [Aut omated message] The Basophils) system which ge nerated this result tra nsmitted reference range : <=1.0. The reference r leo was not used to int erpret this result as normal/abnormal . [facility] CampusVfizblmWASQEBYSFX3923-11-99 10:54:00 Test Item Value Reference Range Interpretation Comments Segs-Bands # (test code = Segs-Bands #) 2.1 1.5-8.1 N [facility] CampusMjfpoduYCCTPOSUCT2674-19-21 10:54:00 Test Item Value Reference Range Interpretation Comments Monocytes (test code = Monocytes) 9.0 2.0-12.0 N [facility] CampusCueukseJYJEUSYCNQ1499-41-16 10:54:00 Test Item Value Reference Range Interpretation Comments Eosinophils (test code = 2.4 See_Comment N [A utomated message] The Eosinophils) system which ge nerated this result tra nsmitted reference range : <=4.0. The reference r leo was not used to int erpret this result as normal/abnormal . [facility] CampusSamlnzwRZYEMSGWNB9445-28-85 10:54:00 Test Item Value Reference Range Interpretation Comments Monocytes # (test code 0.4 See_Comment N [Aut omated message] The = Monocytes #) system which generated this result tra nsmitted reference range : <=0.8. The reference r leo was not used to int erpret this result as normal/abnormal . [facility] CampusUouykecPAWMBYQWJC4857-35-28 10:54:00 Test Item Value Reference Range Interpretation Comments Lymphocytes # (test code = Lymphocytes 2.0 1.0-5.5 N #) [facility] CampusXgvuhnpXNMKFGZMWE7204-08-40 10:54:00 Test Item Value Reference Range Interpretation Comments Lymphocytes (test code = Lymphocytes) 42.8 20.0-40.0 H [facility] CampusHqrccipSBKBQPVIJT7978-18-37 10:54:00 Test Item Value Reference Range Interpretation Comments Segs (test code = Segs) 45.4 45.0-75.0 N [facility]DkhhapaNVOWOJOUO5439-95-20 10:54:00 Test Item Value Reference Range Interpretation Comments CO2 (test code = CO2) 27 24-32 N [facility]PdahvhrAKTXLYWZS2506-38-61 10:54:00 Test Item Value Reference Range Interpretation Comments Chloride Lvl (test code = Chloride Lvl) 104 95-109 N [facility]manWaizhskLYYKKKGTV1115-61-51 10:54:00 Test Item Value Reference Range Interpretation Comments Creatinine Lvl (test code = Creatinine 0.5 0.5-1.4 N Lvl) [facility]manIberaarSOVAOWDUO6919-21-25 10:54:00 Test Item Value Reference Range Interpretation Comments BUN (test code = BUN) 10 7-22 N [facility]manVwkkkyvHEJSVDITJ7780-34-80 10:54:00 Test Item Value Reference Range Interpretation Comments Potassium Lvl (test code = Potassium 4.1 3.5-5.1 N Lvl) [facility]manTodhcwdJVCDQOVGX4497-24-03 10:54:00 Test Item Value Reference Range Interpretation Comments Sodium Lvl (test code = Sodium Lvl) 141 135-145 N [facility]manRxbwqaqERMIBRFMZ0424-85-11 10:54:00 Test Item Value Reference Range Interpretation Comments Glucose Lvl (test code = Glucose Lvl) 83 [facility]manSrwseliQNCYPPMKV4593-04-07 10:54:00 Test Item Value Reference Range Interpretation Comments Calcium Lvl (test code = Calcium Lvl) 8.4 8.5-10.5 L [facility]manTmfukfyARFOKUGOE1074-33-83 10:54:00 Test Item Value Reference Range Interpretation Comments AGAP (test code = AGAP) 14.1 10.0-20.0 N [facility] CampusHigtufrKYNSTVEJCZ2280-45-07 10:54:00 Test Item Value Reference Range Interpretation Comments Hct (test code = Hct) 35.5 36.0-48.0 L [facility] CampusOideaorIIHUQCTFVP6025-17-56 10:54:00 Test Item Value Reference Range Interpretation Comments WBC (test code = WBC) 4.7 3.7-10.4 N [facility] CampusVynrwcmDTKLIRPWQT2854-71-49 10:54:00 Test Item Value Reference Range Interpretation Comments MCV (test code = MCV) 92.6 81.0-99.0 N [facility] CampusXizciyxSMOEVJJSNB7447-85-38 10:54:00 Test Item Value Reference Range Interpretation Comments MCH (test code = MCH) 31.4 pg 27.0-31.0 H [facility] CampusKvtujxpUNOQJWIZPR2338-15-82 10:54:00 Test Item Value Reference Range Interpretation Comments RBC (test code = RBC) 3.84 4.20-5.40 L [facility] CampusHtkizsrCHKJPETSCF1891-27-46 10:54:00 Test Item Value Reference Range Interpretation Comments Hgb (test code = Hgb) 12.1 12.0-16.0 N [facility] CampusUgkxrtmCOQXRVLOPC3597-02-32 10:54:00 Test Item Value Reference Range Interpretation Comments Platelet (test code = Platelet) 287 133-450 N [facility] CampusIfcknclTVYQVFOWLB0499-53-01 10:54:00 Test Item Value Reference Range Interpretation Comments RDW (test code = RDW) 12.7 11.5-14.5 N [facility] CampusMiroodoFKVMSCVPMU4790-08-15 10:54:00 Test Item Value Reference Range Interpretation Comments MCHC (test code = MCHC) 33.9 32.0-36.0 N [facility] CampusMdctjswHUPGWGOUJX0849-39-94 10:54:00 Test Item Value Reference Range Interpretation Comments MPV (test code = MPV) 7.2 7.4-10.4 L [facility] CampusEoaztjsFNKGWCKMZP3577-08-83 10:54:00 Test Item Value Reference Range Interpretation Comments INR (test code = INR) 0.95 0.85-1.17 N [facility] CampusCapqbknDYWQFNJTVY3602-99-14 10:54:00 Test Item Value Reference Range Interpretation Comments PT (test code = PT) 12.7 s 12.0-14.7 N [facility] CampusTbkvdjtDNFXMJMCZF0567-81-11 10:54:00 Test Item Value Reference Range Interpretation Comments PTT (test code = PTT) 28.5 s 22.9-35.8 N [facility] CampusYtxqdlyMBGBKSUTLS9806-90-32 10:54:00 Test Item Value Reference Range Interpretation Comments Eosinophils # (test code 0.1 See_Comment N [A utomated message] The = Eosinophils #) system whic h generated this result tra nsmitted reference range : <=0.5. The reference r leo was not used to int erpret this result as normal/abnormal . [facility] CampusHwlkzmyOWATUSBWOE4847-28-37 10:54:00 Test Item Value Reference Range Interpretation Comments Basophils # (test code 0.0 See_Comment N [Aut omated message] The = Basophils #) system which generated this result tra nsmitted reference range : <=0.2. The reference r leo was not used to int erpret this result as normal/abnormal . [facility] CampusIakryrfSNHUPERJBV4217-11-80 10:54:00 Test Item Value Reference Range Interpretation Comments Basophils (test code = 0.4 See_Comment N [Aut omated message] The Basophils) system which ge nerated this result tra nsmitted reference range : <=1.0. The reference r leo was not used to int erpret this result as normal/abnormal . [facility] CampusBghimxyNFFRBHHZDJ8049-99-96 10:54:00 Test Item Value Reference Range Interpretation Comments Segs-Bands # (test code = Segs-Bands #) 2.1 1.5-8.1 N [facility] CampusLitlxeiWAHQCJRUBF4882-70-53 10:54:00 Test Item Value Reference Range Interpretation Comments Monocytes (test code = Monocytes) 9.0 2.0-12.0 N [facility] CampusPtofmrfJGYRYXJIGB0461-46-23 10:54:00 Test Item Value Reference Range Interpretation Comments Eosinophils (test code = 2.4 See_Comment N [A utomated message] The Eosinophils) system which ge nerated this result tra nsmitted reference range : <=4.0. The reference r leo was not used to int erpret this result as normal/abnormal . [facility] CampusKxbjaezJOPJYQTBXZ3936-24-51 10:54:00 Test Item Value Reference Range Interpretation Comments Monocytes # (test code 0.4 See_Comment N [Aut omated message] The = Monocytes #) system which generated this result tra nsmitted reference range : <=0.8. The reference r leo was not used to int erpret this result as normal/abnormal . [facility] CampusDfatpveSOUZMNITGZ5222-60-07 10:54:00 Test Item Value Reference Range Interpretation Comments Lymphocytes # (test code = Lymphocytes 2.0 1.0-5.5 N #) [facility] CampusCfwasmwVFOZJMHYCT5493-20-34 10:54:00 Test Item Value Reference Range Interpretation Comments Lymphocytes (test code = Lymphocytes) 42.8 20.0-40.0 H [facility] CampusVjthzsuMZFUOPLJWY5164-34-27 10:54:00 Test Item Value Reference Range Interpretation Comments Segs (test code = Segs) 45.4 45.0-75.0 N [facility]QfivkxoCUGSYNDGR8942-17-92 10:02:00 Test Item Value Reference Range Interpretation Comments Chloride Lvl (test code = Chloride Lvl) 105 95-109 N [facility]manGaftvsrMQVNGACFW8154-26-34 10:02:00 Test Item Value Reference Range Interpretation Comments Potassium Lvl (test code = Potassium 4.1 3.5-5.1 N Lvl) [facility]manDnetdinJMJZTYIGC9821-33-24 10:02:00 Test Item Value Reference Range Interpretation Comments Sodium Lvl (test code = Sodium Lvl) 143 135-145 N [facility]manCttvkmlLUTJPFUNE8465-45-41 10:02:00 Test Item Value Reference Range Interpretation Comments CO2 (test code = CO2) 29 24-32 N [facility]manEpongapQGPFITLST0647-37-72 10:02:00 Test Item Value Reference Range Interpretation Comments Calcium Lvl (test code = Calcium Lvl) 8.7 8.5-10.5 N [facility]manOmxhxmjDHLUQSDGU8776-66-47 10:02:00 Test Item Value Reference Range Interpretation Comments BUN (test code = BUN) 6 7-22 L [facility]manMizbypoZXSOPZOTE6814-58-41 10:02:00 Test Item Value Reference Range Interpretation Comments Creatinine Lvl (test code = Creatinine 0.6 0.5-1.4 N Lvl) [facility]manYtrosdsPKFHUFQKB6119-46-06 10:02:00 Test Item Value Reference Range Interpretation Comments Glucose Lvl (test code = Glucose Lvl) 118 [facility]manJheqbnaRLOFLVUDH2447-58-07 10:02:00 Test Item Value Reference Range Interpretation Comments AGAP (test code = AGAP) 13.1 10.0-20.0 N [facility]WvkqzrbPKNPLEXPBT4493-17-50 10:02:00 Test Item Value Reference Range Interpretation Comments Basophils # (test code 0.0 See_Comment N [Aut omated message] The = Basophils #) system which generated this result tra nsmitted reference range : <=0.2. The reference r leo was not used to int erpret this result as normal/abnormal . [facility] CampusEutzlxdPWOOZKLOMN4258-85-33 10:02:00 Test Item Value Reference Range Interpretation Comments Monocytes # (test code 0.3 See_Comment N [Aut omated message] The = Monocytes #) system which generated this result tra nsmitted reference range : <=0.8. The reference r leo was not used to int erpret this result as normal/abnormal . [facility] CampusAkygtyoREEULCNRED4051-09-40 10:02:00 Test Item Value Reference Range Interpretation Comments Eosinophils # (test code 0.1 See_Comment N [A utomated message] The = Eosinophils #) system wh h generated this result tra nsmitted reference range : <=0.5. The reference r leo was not used to int erpret this result as normal/abnormal . [facility] CampusUgggqvmINNLLFNKMY6456-73-20 10:02:00 Test Item Value Reference Range Interpretation Comments Segs-Bands # (test code = Segs-Bands #) 2.8 1.5-8.1 N [facility] CampusNqsntksWJPUMVUNDH9577-31-75 10:02:00 Test Item Value Reference Range Interpretation Comments Lymphocytes # (test code = Lymphocytes 1.7 1.0-5.5 N #) [facility] CampusLbzxrfuECELXRIKOR6343-47-36 10:02:00 Test Item Value Reference Range Interpretation Comments Basophils (test code = 0.6 See_Comment N [Aut omated message] The Basophils) system which ge nerated this result tra nsmitted reference range : <=1.0. The reference r leo was not used to int erpret this result as normal/abnormal . [facility] CampusAkebrlyUOFNNUBVZY2934-74-76 10:02:00 Test Item Value Reference Range Interpretation Comments Monocytes (test code = Monocytes) 6.9 2.0-12.0 N [facility] CampusJnhhuxbWMKWJKHJUC4117-63-48 10:02:00 Test Item Value Reference Range Interpretation Comments Eosinophils (test code = 2.0 See_Comment N [A utomated message] The Eosinophils) system which ge nerated this result tra nsmitted reference range : <=4.0. The reference r leo was not used to int erpret this result as normal/abnormal . [facility] CampusCgbcqgjDRIIVZXCGJ8876-54-96 10:02:00 Test Item Value Reference Range Interpretation Comments Segs (test code = Segs) 55.8 45.0-75.0 N [facility] CampusQooybwyMJYPQIFPGE0467-33-61 10:02:00 Test Item Value Reference Range Interpretation Comments Lymphocytes (test code = Lymphocytes) 34.7 20.0-40.0 N [facility] CampusEmemrsvZJTXEZRPAI3322-68-28 10:02:00 Test Item Value Reference Range Interpretation Comments PTT (test code = PTT) 32.2 s 22.9-35.8 N [facility] CampusLwbvfdzGQFKGKWAKG7529-87-42 10:02:00 Test Item Value Reference Range Interpretation Comments PT (test code = PT) 13.3 s 12.0-14.7 N [facility] CampusQlrjlrmXLWCABUDPL5379-29-19 10:02:00 Test Item Value Reference Range Interpretation Comments INR (test code = INR) 1.01 0.85-1.17 N [facility] CampusLwatettRJZFBSSJDO8971-61-85 10:02:00 Test Item Value Reference Range Interpretation Comments Hct (test code = Hct) 27.5 36.0-48.0 L [facility] CampusVscmwmqYXJXXDFHBJ7637-11-63 10:02:00 Test Item Value Reference Range Interpretation Comments RBC (test code = RBC) 3.34 4.20-5.40 L [facility] CampusEejencfPANFHAYRWJ4724-19-97 10:02:00 Test Item Value Reference Range Interpretation Comments Hgb (test code = Hgb) 9.7 12.0-16.0 L [facility] CampusVokvcidJCBJCMVBYP2346-33-55 10:02:00 Test Item Value Reference Range Interpretation Comments WBC (test code = WBC) 5.0 3.7-10.4 N [facility] CampusJmvotbaCIQLQFWSLA9057-41-76 10:02:00 Test Item Value Reference Range Interpretation Comments MPV (test code = MPV) 9.2 7.4-10.4 N [facility] CampusPgfnoqkJHARGGPNIT1088-54-89 10:02:00 Test Item Value Reference Range Interpretation Comments Platelet (test code = Platelet) 240 133-450 N [facility] CampusGedfyexOOERJAPJVK1046-24-71 10:02:00 Test Item Value Reference Range Interpretation Comments RDW (test code = RDW) 14.3 11.5-14.5 N [facility] CampusMmoyieeNIKWUZFCPY8502-15-28 10:02:00 Test Item Value Reference Range Interpretation Comments MCHC (test code = MCHC) 35.2 32.0-36.0 N [facility] CampusLdrvlteKQPJCBXZOD2644-27-60 10:02:00 Test Item Value Reference Range Interpretation Comments MCH (test code = MCH) 28.9 pg 27.0-31.0 N [facility] CampusIbndnltWOTLHESAAL2184-63-36 10:02:00 Test Item Value Reference Range Interpretation Comments MCV (test code = MCV) 82.1 81.0-99.0 N [facility]SchhgazCLCDNYXSP5132-89-33 10:02:00 Test Item Value Reference Range Interpretation Comments Chloride Lvl (test code = Chloride Lvl) 105 95-109 N [facility]BgkipcoZYPDQVTED6205-78-29 10:02:00 Test Item Value Reference Range Interpretation Comments Potassium Lvl (test code = Potassium 4.1 3.5-5.1 N Lvl) [facility]UaglssnRDQGXGHRC9836-63-75 10:02:00 Test Item Value Reference Range Interpretation Comments Sodium Lvl (test code = Sodium Lvl) 143 135-145 N [facility]manRmzrwyxDTDQMLEQV8128-91-40 10:02:00 Test Item Value Reference Range Interpretation Comments CO2 (test code = CO2) 29 24-32 N [facility]manCrzmutrUOSOTWLYQ4422-05-34 10:02:00 Test Item Value Reference Range Interpretation Comments Calcium Lvl (test code = Calcium Lvl) 8.7 8.5-10.5 N [facility]manYdvoksaUDEPXYIQC1073-86-66 10:02:00 Test Item Value Reference Range Interpretation Comments BUN (test code = BUN) 6 7-22 L [facility]manAyvmwgvQJWOZKMLQ7438-72-59 10:02:00 Test Item Value Reference Range Interpretation Comments Creatinine Lvl (test code = Creatinine 0.6 0.5-1.4 N Lvl) [facility]manMrdhkquYQIOLXCAM8010-31-17 10:02:00 Test Item Value Reference Range Interpretation Comments Glucose Lvl (test code = Glucose Lvl) 118 [facility]manJmucwsgTSRMJZJZY6991-77-14 10:02:00 Test Item Value Reference Range Interpretation Comments AGAP (test code = AGAP) 13.1 10.0-20.0 N [facility] CampusEmyztstRYFJVBCMVG2774-56-06 10:02:00 Test Item Value Reference Range Interpretation Comments Basophils # (test code 0.0 See_Comment N [Aut omated message] The = Basophils #) system which generated this result tra nsmitted reference range : <=0.2. The reference r leo was not used to int erpret this result as normal/abnormal . [facility] CampusVbezvxpNMZHHWPVRH2081-75-18 10:02:00 Test Item Value Reference Range Interpretation Comments Monocytes # (test code 0.3 See_Comment N [Aut omated message] The = Monocytes #) system which generated this result tra nsmitted reference range : <=0.8. The reference r leo was not used to int erpret this result as normal/abnormal . [facility] CampusIttrwgiHYYZYWSRGF7845-88-13 10:02:00 Test Item Value Reference Range Interpretation Comments Eosinophils # (test code 0.1 See_Comment N [A utomated message] The = Eosinophils #) system whic h generated this result tra nsmitted reference range : <=0.5. The reference r leo was not used to int erpret this result as normal/abnormal . [facility] CampusWwmckozGBLWCHSLNV6871-04-43 10:02:00 Test Item Value Reference Range Interpretation Comments Segs-Bands # (test code = Segs-Bands #) 2.8 1.5-8.1 N [facility] CampusUexgearVGUFQNJFFZ0112-82-25 10:02:00 Test Item Value Reference Range Interpretation Comments Lymphocytes # (test code = Lymphocytes 1.7 1.0-5.5 N #) [facility] CampusRaklshpJBELLNODOR4114-43-72 10:02:00 Test Item Value Reference Range Interpretation Comments Basophils (test code = 0.6 See_Comment N [Aut omated message] The Basophils) system which ge nerated this result tra nsmitted reference range : <=1.0. The reference r leo was not used to int erpret this result as normal/abnormal . [facility] CampusBzrthhqLECFUBFLGM2964-34-50 10:02:00 Test Item Value Reference Range Interpretation Comments Monocytes (test code = Monocytes) 6.9 2.0-12.0 N [facility] CampusNefddmpAYTUUGVPKB4546-43-60 10:02:00 Test Item Value Reference Range Interpretation Comments Eosinophils (test code = 2.0 See_Comment N [A utomated message] The Eosinophils) system which ge nerated this result tra nsmitted reference range : <=4.0. The reference r leo was not used to int erpret this result as normal/abnormal . [facility] CampusLigshklWSAWKDVOQS6296-04-75 10:02:00 Test Item Value Reference Range Interpretation Comments Segs (test code = Segs) 55.8 45.0-75.0 N [facility] CampusIepnaxdXVHDXOQCUF7657-21-87 10:02:00 Test Item Value Reference Range Interpretation Comments Lymphocytes (test code = Lymphocytes) 34.7 20.0-40.0 N [facility] CampusWavpeblNDOWHWBBLE5185-85-06 10:02:00 Test Item Value Reference Range Interpretation Comments PTT (test code = PTT) 32.2 s 22.9-35.8 N [facility] CampusLrdqelgTOJHVWVABP4198-22-82 10:02:00 Test Item Value Reference Range Interpretation Comments PT (test code = PT) 13.3 s 12.0-14.7 N [facility] CampusFfelahjIVPGJWGDXR3329-34-43 10:02:00 Test Item Value Reference Range Interpretation Comments INR (test code = INR) 1.01 0.85-1.17 N [facility] CampusWrchcffSUDYAGNLAP5080-30-15 10:02:00 Test Item Value Reference Range Interpretation Comments Hct (test code = Hct) 27.5 36.0-48.0 L [facility] CampusKwzzkcbRPGHXNDIMN4013-28-32 10:02:00 Test Item Value Reference Range Interpretation Comments RBC (test code = RBC) 3.34 4.20-5.40 L [facility] CampusGizauvbDHLKGNLYMV4257-76-40 10:02:00 Test Item Value Reference Range Interpretation Comments Hgb (test code = Hgb) 9.7 12.0-16.0 L [facility] CampusVogktofVEVLSOXJHY6678-30-80 10:02:00 Test Item Value Reference Range Interpretation Comments WBC (test code = WBC) 5.0 3.7-10.4 N [facility] CampusDeszhsxATMJTAOGNP1339-75-10 10:02:00 Test Item Value Reference Range Interpretation Comments MPV (test code = MPV) 9.2 7.4-10.4 N [facility] CampusFgiwxleSBBTMBBTTA9758-15-23 10:02:00 Test Item Value Reference Range Interpretation Comments Platelet (test code = Platelet) 240 133-450 N [facility] CampusChiubtjSEWYVGUIBU2323-81-82 10:02:00 Test Item Value Reference Range Interpretation Comments RDW (test code = RDW) 14.3 11.5-14.5 N [facility] CampusMclbxaqIOKNQKYTXZ8891-89-49 10:02:00 Test Item Value Reference Range Interpretation Comments MCHC (test code = MCHC) 35.2 32.0-36.0 N [facility] CampusMvxcwagIWHHBJIQBJ0703-72-78 10:02:00 Test Item Value Reference Range Interpretation Comments MCH (test code = MCH) 28.9 pg 27.0-31.0 N [facility] CampusRlhqftsUVTUHCQNKP5621-18-20 10:02:00 Test Item Value Reference Range Interpretation Comments MCV (test code = MCV) 82.1 81.0-99.0 N [facility]CamgqdwJTYNOQLTG9688-96-51 10:02:00 Test Item Value Reference Range Interpretation Comments Chloride Lvl (test code = Chloride Lvl) 105 95-109 N [facility]manFrblkbhTBOKBLADA1688-66-42 10:02:00 Test Item Value Reference Range Interpretation Comments Potassium Lvl (test code = Potassium 4.1 3.5-5.1 N Lvl) [facility]manBrzmxxoCOPMAUIRC4329-20-85 10:02:00 Test Item Value Reference Range Interpretation Comments Sodium Lvl (test code = Sodium Lvl) 143 135-145 N [facility]manZcwtpglBKHOHSLPH4229-89-21 10:02:00 Test Item Value Reference Range Interpretation Comments CO2 (test code = CO2) 29 24-32 N [facility]manGcopskaTSLPFQYUO5657-75-13 10:02:00 Test Item Value Reference Range Interpretation Comments Calcium Lvl (test code = Calcium Lvl) 8.7 8.5-10.5 N [facility]manTefcbfqNKMTAAOHG4415-39-58 10:02:00 Test Item Value Reference Range Interpretation Comments BUN (test code = BUN) 6 7-22 L [facility]manOpfrlyfNWFGFGQMP6793-02-21 10:02:00 Test Item Value Reference Range Interpretation Comments Creatinine Lvl (test code = Creatinine 0.6 0.5-1.4 N Lvl) [facility]manQdwpzfoHOIFVRQHA3371-87-75 10:02:00 Test Item Value Reference Range Interpretation Comments Glucose Lvl (test code = Glucose Lvl) 118 [facility]manDwznvekDYWLNIUOY6850-56-38 10:02:00 Test Item Value Reference Range Interpretation Comments AGAP (test code = AGAP) 13.1 10.0-20.0 N [facility] CampusDwknifgBUTDSXDHBG8771-89-48 10:02:00 Test Item Value Reference Range Interpretation Comments Basophils # (test code 0.0 See_Comment N [Aut omated message] The = Basophils #) system which generated this result tra nsmitted reference range : <=0.2. The reference r leo was not used to int erpret this result as normal/abnormal . [facility] CampusTkhyafeDMZILQJLWH2773-33-69 10:02:00 Test Item Value Reference Range Interpretation Comments Monocytes # (test code 0.3 See_Comment N [Aut omated message] The = Monocytes #) system which generated this result tra nsmitted reference range : <=0.8. The reference r leo was not used to int erpret this result as normal/abnormal . [facility] CampusKsnjctmFMKJGZFAMD6257-78-13 10:02:00 Test Item Value Reference Range Interpretation Comments Eosinophils # (test code 0.1 See_Comment N [A utomated message] The = Eosinophils #) system whic h generated this result tra nsmitted reference range : <=0.5. The reference r leo was not used to int erpret this result as normal/abnormal . [facility] CampusMlmlrkcHWYAZVTKCF8203-98-25 10:02:00 Test Item Value Reference Range Interpretation Comments Segs-Bands # (test code = Segs-Bands #) 2.8 1.5-8.1 N [facility] CampusHrhqgdcGPRPPOVZBE9639-84-71 10:02:00 Test Item Value Reference Range Interpretation Comments Lymphocytes # (test code = Lymphocytes 1.7 1.0-5.5 N #) [facility] CampusSwpgxrvYFWEWEWIGN8604-46-53 10:02:00 Test Item Value Reference Range Interpretation Comments Basophils (test code = 0.6 See_Comment N [Aut omated message] The Basophils) system which ge nerated this result tra nsmitted reference range : <=1.0. The reference r leo was not used to int erpret this result as normal/abnormal . [facility] CampusLmjzzhuTWOHKZOGFB4090-69-02 10:02:00 Test Item Value Reference Range Interpretation Comments Monocytes (test code = Monocytes) 6.9 2.0-12.0 N [facility] CampusZghudsaUKWTQYYNQL5343-65-25 10:02:00 Test Item Value Reference Range Interpretation Comments Eosinophils (test code = 2.0 See_Comment N [A utomated message] The Eosinophils) system which ge nerated this result tra nsmitted reference range : <=4.0. The reference r leo was not used to int erpret this result as normal/abnormal . [facility] CampusXfiwqfpMNPAWAJNGX8476-27-51 10:02:00 Test Item Value Reference Range Interpretation Comments Segs (test code = Segs) 55.8 45.0-75.0 N [facility] CampusFepqderGIJBCWDLRL3875-43-47 10:02:00 Test Item Value Reference Range Interpretation Comments Lymphocytes (test code = Lymphocytes) 34.7 20.0-40.0 N [facility] CampusLkwrztmDIVKFLVJQE8382-27-40 10:02:00 Test Item Value Reference Range Interpretation Comments PTT (test code = PTT) 32.2 s 22.9-35.8 N [facility] CampusPgzaelhMVKFYUKVLX2917-10-49 10:02:00 Test Item Value Reference Range Interpretation Comments PT (test code = PT) 13.3 s 12.0-14.7 N [facility] CampusYhzyasmBYNDRVMKQH1725-35-20 10:02:00 Test Item Value Reference Range Interpretation Comments INR (test code = INR) 1.01 0.85-1.17 N [facility] CampusHomzbfhRVVPEXBZDC7089-70-23 10:02:00 Test Item Value Reference Range Interpretation Comments Hct (test code = Hct) 27.5 36.0-48.0 L [facility] CampusVlabqugYJAIUCBPAN2042-60-96 10:02:00 Test Item Value Reference Range Interpretation Comments RBC (test code = RBC) 3.34 4.20-5.40 L [facility] CampusQzvqkhuNLIHFKZXZK8057-08-90 10:02:00 Test Item Value Reference Range Interpretation Comments Hgb (test code = Hgb) 9.7 12.0-16.0 L [facility] CampusUnzkjhxFYIGOEPOBB0997-15-75 10:02:00 Test Item Value Reference Range Interpretation Comments WBC (test code = WBC) 5.0 3.7-10.4 N [facility] CampusQjyvklbLRFTUUHLNM9307-21-97 10:02:00 Test Item Value Reference Range Interpretation Comments MPV (test code = MPV) 9.2 7.4-10.4 N [facility] CampusBtimrodRTMDYBBVTF4773-95-55 10:02:00 Test Item Value Reference Range Interpretation Comments Platelet (test code = Platelet) 240 133-450 N [facility] CampusHtvaereNYXTNFLOWY7293-69-86 10:02:00 Test Item Value Reference Range Interpretation Comments RDW (test code = RDW) 14.3 11.5-14.5 N [facility] CampusRyantjgXNMINLFJAB1612-59-08 10:02:00 Test Item Value Reference Range Interpretation Comments MCHC (test code = MCHC) 35.2 32.0-36.0 N [facility] CampusEijvpvuMFFKUBWFBI6459-88-95 10:02:00 Test Item Value Reference Range Interpretation Comments MCH (test code = MCH) 28.9 pg 27.0-31.0 N [facility] CampusIkwttrwDASHOCLRXS3498-13-59 10:02:00 Test Item Value Reference Range Interpretation Comments MCV (test code = MCV) 82.1 81.0-99.0 N [facility]YjgfvliSYTNASMNN5468-25-03 10:02:00 Test Item Value Reference Range Interpretation Comments Chloride Lvl (test code = Chloride Lvl) 105 95-109 N [facility]manFpkimxkFVIIZYTAP9677-53-25 10:02:00 Test Item Value Reference Range Interpretation Comments Potassium Lvl (test code = Potassium 4.1 3.5-5.1 N Lvl) [facility]manNtmnbwoTGGTNGAFD3009-03-96 10:02:00 Test Item Value Reference Range Interpretation Comments Sodium Lvl (test code = Sodium Lvl) 143 135-145 N [facility]manAragrceWUNEENFKH9552-23-86 10:02:00 Test Item Value Reference Range Interpretation Comments CO2 (test code = CO2) 29 24-32 N [facility]manPiyruvxJDROIYOOO5589-93-64 10:02:00 Test Item Value Reference Range Interpretation Comments Calcium Lvl (test code = Calcium Lvl) 8.7 8.5-10.5 N [facility]manEsmogxeIGVHGMYWQ7965-18-69 10:02:00 Test Item Value Reference Range Interpretation Comments BUN (test code = BUN) 6 7-22 L [facility]manKnyaauoFBLSWUQBP5571-18-92 10:02:00 Test Item Value Reference Range Interpretation Comments Creatinine Lvl (test code = Creatinine 0.6 0.5-1.4 N Lvl) [facility]manHhstryhZCDEZMQUV2324-45-66 10:02:00 Test Item Value Reference Range Interpretation Comments Glucose Lvl (test code = Glucose Lvl) 118 [facility]manPxcflhaNWEGUYKPH0917-85-68 10:02:00 Test Item Value Reference Range Interpretation Comments AGAP (test code = AGAP) 13.1 10.0-20.0 N [facility] CampusRrsckwmDCMKTEJWVX3370-23-30 10:02:00 Test Item Value Reference Range Interpretation Comments Basophils # (test code 0.0 See_Comment N [Aut omated message] The = Basophils #) system which generated this result tra nsmitted reference range : <=0.2. The reference r leo was not used to int erpret this result as normal/abnormal . [facility] CampusQnxjbluXNYLVJVIYV6884-91-24 10:02:00 Test Item Value Reference Range Interpretation Comments Monocytes # (test code 0.3 See_Comment N [Aut omated message] The = Monocytes #) system which generated this result tra nsmitted reference range : <=0.8. The reference r leo was not used to int erpret this result as normal/abnormal . [facility] CampusCvhacqlKKRWMLXYIU0118-15-08 10:02:00 Test Item Value Reference Range Interpretation Comments Eosinophils # (test code 0.1 See_Comment N [A utomated message] The = Eosinophils #) system whic h generated this result tra nsmitted reference range : <=0.5. The reference r leo was not used to int erpret this result as normal/abnormal . [facility] CampusKxfpyawZRJIGABAHN8690-38-53 10:02:00 Test Item Value Reference Range Interpretation Comments Segs-Bands # (test code = Segs-Bands #) 2.8 1.5-8.1 N [facility] CampusMbuxdibBQPMBIOKHV3054-46-49 10:02:00 Test Item Value Reference Range Interpretation Comments Lymphocytes # (test code = Lymphocytes 1.7 1.0-5.5 N #) [facility] CampusYbuxnmuMLKQQYZGHI1846-82-71 10:02:00 Test Item Value Reference Range Interpretation Comments Basophils (test code = 0.6 See_Comment N [Aut omated message] The Basophils) system which ge nerated this result tra nsmitted reference range : <=1.0. The reference r leo was not used to int erpret this result as normal/abnormal . [facility] CampusTxkqydtCUUOLFQIPS0616-41-43 10:02:00 Test Item Value Reference Range Interpretation Comments Monocytes (test code = Monocytes) 6.9 2.0-12.0 N [facility] CampusUhpopptSVHODOCDMH9653-64-63 10:02:00 Test Item Value Reference Range Interpretation Comments Eosinophils (test code = 2.0 See_Comment N [A utomated message] The Eosinophils) system which ge nerated this result tra nsmitted reference range : <=4.0. The reference r leo was not used to int erpret this result as normal/abnormal . [facility] CampusOhxlrwvDXWRCLLHON9602-32-45 10:02:00 Test Item Value Reference Range Interpretation Comments Segs (test code = Segs) 55.8 45.0-75.0 N [place] 296192-03-19 10:02:00 Test Item Value Reference Range Interpretation Comments Lymphocytes (test code = Lymphocytes) 34.7 20.0-40.0 N [facility] CampusZryszfnCFXOXXLKOR3921-08-90 10:02:00 Test Item Value Reference Range Interpretation Comments PTT (test code = PTT) 32.2 s 22.9-35.8 N [facility] CampusPbvazxbSPLNMYBWAG6666-43-99 10:02:00 Test Item Value Reference Range Interpretation Comments PT (test code = PT) 13.3 s 12.0-14.7 N [facility] CampusLgfymqxAZAFUAOLYP1695-09-97 10:02:00 Test Item Value Reference Range Interpretation Comments INR (test code = INR) 1.01 0.85-1.17 N [facility] CampusXrohsvkCHDTTLXWWT8972-89-88 10:02:00 Test Item Value Reference Range Interpretation Comments Hct (test code = Hct) 27.5 36.0-48.0 L [facility] CampusOmqizgpVBDGDCCXBO1432-68-57 10:02:00 Test Item Value Reference Range Interpretation Comments RBC (test code = RBC) 3.34 4.20-5.40 L [facility] CampusCllsftmAPXRTCCQBG1640-04-53 10:02:00 Test Item Value Reference Range Interpretation Comments Hgb (test code = Hgb) 9.7 12.0-16.0 L [facility] CampusMjobgxoPCZWVYGTGM1770-17-81 10:02:00 Test Item Value Reference Range Interpretation Comments WBC (test code = WBC) 5.0 3.7-10.4 N [facility] CampusVfsbecsVOEESQGYJW7627-85-45 10:02:00 Test Item Value Reference Range Interpretation Comments MPV (test code = MPV) 9.2 7.4-10.4 N [facility] CampusWkrrtjpUJFIMZCQMR9549-93-02 10:02:00 Test Item Value Reference Range Interpretation Comments Platelet (test code = Platelet) 240 133-450 N [facility] CampusWbshfcxCBVVBLFCDL2528-41-72 10:02:00 Test Item Value Reference Range Interpretation Comments RDW (test code = RDW) 14.3 11.5-14.5 N [facility] CampusExxtmtcNUHZURMZWC0526-55-53 10:02:00 Test Item Value Reference Range Interpretation Comments MCHC (test code = MCHC) 35.2 32.0-36.0 N [facility] CampusHuxomijGJSYEXWJFA4916-41-33 10:02:00 Test Item Value Reference Range Interpretation Comments MCH (test code = MCH) 28.9 pg 27.0-31.0 N [facility] CampusOdhlavbADSTINRWPM0140-63-34 10:02:00 Test Item Value Reference Range Interpretation Comments MCV (test code = MCV) 82.1 81.0-99.0 N [facility]OzuyxzcZFXDQVKZD3936-76-16 10:02:00 Test Item Value Reference Range Interpretation Comments Chloride Lvl (test code = Chloride Lvl) 105 95-109 N [facility]manLhdusgrPDIDZXLAP0579-27-75 10:02:00 Test Item Value Reference Range Interpretation Comments Potassium Lvl (test code = Potassium 4.1 3.5-5.1 N Lvl) [facility]CyflpcgSTNKAFPNP6140-82-26 10:02:00 Test Item Value Reference Range Interpretation Comments Sodium Lvl (test code = Sodium Lvl) 143 135-145 N [facility]manQyxzcglHKCINYXNJ1398-80-67 10:02:00 Test Item Value Reference Range Interpretation Comments CO2 (test code = CO2) 29 24-32 N [facility]manZqcqbrpLCNFFFNHY4900-32-16 10:02:00 Test Item Value Reference Range Interpretation Comments Calcium Lvl (test code = Calcium Lvl) 8.7 8.5-10.5 N [facility]manYdpjocxFHVDJFDPF7235-53-50 10:02:00 Test Item Value Reference Range Interpretation Comments BUN (test code = BUN) 6 7-22 L [facility]manItituovULGBDTXPI9503-49-50 10:02:00 Test Item Value Reference Range Interpretation Comments Creatinine Lvl (test code = Creatinine 0.6 0.5-1.4 N Lvl) [facility]manPjnbqxgBKCMHOUBD8178-88-30 10:02:00 Test Item Value Reference Range Interpretation Comments Glucose Lvl (test code = Glucose Lvl) 118 [facility]manNeumuaeZSRRFUGAA7516-69-41 10:02:00 Test Item Value Reference Range Interpretation Comments AGAP (test code = AGAP) 13.1 10.0-20.0 N [facility] CampusIrvwujgRCLEKJJXVE7080-65-09 10:02:00 Test Item Value Reference Range Interpretation Comments Basophils # (test code 0.0 See_Comment N [Aut omated message] The = Basophils #) system which generated this result tra nsmitted reference range : <=0.2. The reference r leo was not used to int erpret this result as normal/abnormal . [facility] CampusIpfzyrzLGSEPWZPNZ6793-45-26 10:02:00 Test Item Value Reference Range Interpretation Comments Monocytes # (test code 0.3 See_Comment N [Aut omated message] The = Monocytes #) system which generated this result tra nsmitted reference range : <=0.8. The reference r leo was not used to int erpret this result as normal/abnormal . [facility] CampusAqnxbqrHQUWRXIKTB8817-78-58 10:02:00 Test Item Value Reference Range Interpretation Comments Eosinophils # (test code 0.1 See_Comment N [A utomated message] The = Eosinophils #) system whic h generated this result tra nsmitted reference range : <=0.5. The reference r leo was not used to int erpret this result as normal/abnormal . [facility] CampusYkhqjzoYYYVYOFZLR9503-09-20 10:02:00 Test Item Value Reference Range Interpretation Comments Segs-Bands # (test code = Segs-Bands #) 2.8 1.5-8.1 N [facility] CampusDbdftjtZBLROURORQ8113-62-14 10:02:00 Test Item Value Reference Range Interpretation Comments Lymphocytes # (test code = Lymphocytes 1.7 1.0-5.5 N #) [facility] CampusAwyusyeIAHBBQGAVQ8196-34-93 10:02:00 Test Item Value Reference Range Interpretation Comments Basophils (test code = 0.6 See_Comment N [Aut omated message] The Basophils) system which ge nerated this result tra nsmitted reference range : <=1.0. The reference r leo was not used to int erpret this result as normal/abnormal . [facility] CampusLyvdxxgTSUYQSQSQO0521-53-95 10:02:00 Test Item Value Reference Range Interpretation Comments Monocytes (test code = Monocytes) 6.9 2.0-12.0 N [facility] CampusErkrfsoCXTEOYHUUG7750-68-96 10:02:00 Test Item Value Reference Range Interpretation Comments Eosinophils (test code = 2.0 See_Comment N [A utomated message] The Eosinophils) system which ge nerated this result tra nsmitted reference range : <=4.0. The reference r leo was not used to int erpret this result as normal/abnormal . [facility] CampusWmfinqoGWWGRXNDJJ6150-95-73 10:02:00 Test Item Value Reference Range Interpretation Comments Segs (test code = Segs) 55.8 45.0-75.0 N [facility] CampusGzgfnmsRASYLJJLFR6677-26-20 10:02:00 Test Item Value Reference Range Interpretation Comments Lymphocytes (test code = Lymphocytes) 34.7 20.0-40.0 N [facility] CampusTaqcqrxUBMSDUEXFC1810-11-23 10:02:00 Test Item Value Reference Range Interpretation Comments PTT (test code = PTT) 32.2 s 22.9-35.8 N [facility] CampusPqloanmNIKBTEVYDR2933-30-61 10:02:00 Test Item Value Reference Range Interpretation Comments PT (test code = PT) 13.3 s 12.0-14.7 N [facility] CampusEqglomwZWLFTTSETW3226-50-16 10:02:00 Test Item Value Reference Range Interpretation Comments INR (test code = INR) 1.01 0.85-1.17 N [facility] CampusYgcsukxYSARNBVSPM6274-34-26 10:02:00 Test Item Value Reference Range Interpretation Comments Hct (test code = Hct) 27.5 36.0-48.0 L [facility] CampusFkzruooAKZVVPLYMI0516-60-50 10:02:00 Test Item Value Reference Range Interpretation Comments RBC (test code = RBC) 3.34 4.20-5.40 L [facility] CampusBpneicaHUJANKQJJX8605-46-43 10:02:00 Test Item Value Reference Range Interpretation Comments Hgb (test code = Hgb) 9.7 12.0-16.0 L [facility] CampusUykvuyzULCPFOOCQU9209-53-13 10:02:00 Test Item Value Reference Range Interpretation Comments WBC (test code = WBC) 5.0 3.7-10.4 N [facility] CampusDnluzynXXQVJHDDFX1170-55-52 10:02:00 Test Item Value Reference Range Interpretation Comments MPV (test code = MPV) 9.2 7.4-10.4 N [facility] CampusJzyqqgxISMKOXCBCT4643-82-31 10:02:00 Test Item Value Reference Range Interpretation Comments Platelet (test code = Platelet) 240 133-450 N [facility] CampusJcgdvbxOVDGOFBRKY5539-03-06 10:02:00 Test Item Value Reference Range Interpretation Comments RDW (test code = RDW) 14.3 11.5-14.5 N [facility] CampusWjcasyoXIEKPGFHTE4305-61-60 10:02:00 Test Item Value Reference Range Interpretation Comments MCHC (test code = MCHC) 35.2 32.0-36.0 N [facility] CampusIawioilSFGZIFPJTI1805-74-26 10:02:00 Test Item Value Reference Range Interpretation Comments MCH (test code = MCH) 28.9 pg 27.0-31.0 N [facility] CampusKqvksulFOOYFROVNJ2064-19-36 10:02:00 Test Item Value Reference Range Interpretation Comments MCV (test code = MCV) 82.1 81.0-99.0 N [facility]manVbftakxPITQYABIM5760-34-06 09:24:00 Test Item Value Reference Range Interpretation Comments Magnesium Lvl (test code = Magnesium 2.1 1.8-2.4 N Lvl) [facility]manAwhfodtRWEYEGWNW2668-39-79 09:24:00 Test Item Value Reference Range Interpretation Comments Magnesium Lvl (test code = Magnesium 2.1 1.8-2.4 N Lvl) [facility]manWvldbziCMELCUJEQ8110-48-28 09:24:00 Test Item Value Reference Range Interpretation Comments Magnesium Lvl (test code = Magnesium 2.1 1.8-2.4 N Lvl) [facility]manRvgpuvrNLAJXJIWW0250-18-99 09:24:00 Test Item Value Reference Range Interpretation Comments Magnesium Lvl (test code = Magnesium 2.1 1.8-2.4 N Lvl) [facility]manOhurtupIYLWZAWYH8731-90-02 09:24:00 Test Item Value Reference Range Interpretation Comments Magnesium Lvl (test code = Magnesium 2.1 1.8-2.4 N Lvl) [facility]ZvtkkjlPlartvkcxjpc9310-55-98 00:32:00 Test Item Value Reference Range Interpretation Comments Culture: Aspirate/Body Fluid/Tissue (test code = Culture: Aspirate/Body Fluid/Tissue) [facility] CenterLeirrgaCatudcoytdam3694-64-26 00:32:00 Test Item Value Reference Range Interpretation Comments Culture: Anaerobic (test code = Culture: Anaerobic) [facility] CenterOekxlweSrrdogyqmqea6983-95-55 00:32:00 Test Item Value Reference Range Interpretation Comments Culture: Aspirate/Body Fluid/Tissue (test code = Culture: Aspirate/Body Fluid/Tissue) [facility] CenterPsfnkepYhxqretpzkzs7161-82-16 00:32:00 Test Item Value Reference Range Interpretation Comments Culture: Anaerobic (test code = Culture: Anaerobic) [facility] CenterQxfwgxvBduuiamjncxw3863-46-85 00:32:00 Test Item Value Reference Range Interpretation Comments Culture: Aspirate/Body Fluid/Tissue (test code = Culture: Aspirate/Body Fluid/Tissue) [facility] CenterUlwonnnCchhkufhajze5917-75-68 00:32:00 Test Item Value Reference Range Interpretation Comments Culture: Anaerobic (test code = Culture: Anaerobic) [facility] CenterNcxqcvaDgudwwvgoood5959-27-64 00:32:00 Test Item Value Reference Range Interpretation Comments Culture: Aspirate/Body Fluid/Tissue (test code = Culture: Aspirate/Body Fluid/Tissue) [facility] CenterWrzhqtxJhbjvmzahtfn9782-20-21 00:32:00 Test Item Value Reference Range Interpretation Comments Culture: Anaerobic (test code = Culture: Anaerobic) [facility] CenterOhmscpcGdvlilmwiqid8651-20-26 00:32:00 Test Item Value Reference Range Interpretation Comments Culture: Aspirate/Body Fluid/Tissue (test code = Culture: Aspirate/Body Fluid/Tissue) [facility] CenterDuerqakUohlugaedzta2662-21-21 00:32:00 Test Item Value Reference Range Interpretation Comments Culture: Anaerobic (test code = Culture: Anaerobic) [facility]manUereexjBEIRPGDZC3817-19-47 17:10:00 Test Item Value Reference Range Interpretation Comments Temp Roberth (test code = Temp Roberth) 37.0 [facility]manUayjwsmHVTYNPMOQ5665-41-72 17:10:00 Test Item Value Reference Range Interpretation Comments O2 Sat Roberth (test code = O2 Sat Roberth) 27.0 40.0-70.0 L [facility]manOkkbsddCFXXIYNQM7140-48-93 17:10:00 Test Item Value Reference Range Interpretation Comments pCO2 Roberth (test code = pCO2 Roberth) 47 38-52 N [facility]manOhtzvzfKUZATMWXO0670-73-99 17:10:00 Test Item Value Reference Range Interpretation Comments pH Roberth (test code = pH Roberth) 7.37 7.28-7.42 N [facility]manBjqkvhdWPEMTAFXV0490-74-47 17:10:00 Test Item Value Reference Range Interpretation Comments BE Roberth (test code = 1 See_Comment N [Automa rohit message] The BE Roberth) system which ge nerated this result transmit rohit reference range : <=2. The reference range was not used to interpr et this result as reji l/abnormal. [facility]manAxaiwqkKRSMAVAAD1529-46-65 17:10:00 Test Item Value Reference Range Interpretation Comments HCO3 Roberth (test code = HCO3 Roberth) 27.2 22.0-26.0 H [facility]manLjyyqhwHWFXJJRPS9650-96-73 17:10:00 Test Item Value Reference Range Interpretation Comments pO2 Roberth (test code = pO2 Roberth) 19 20-49 L [facility]manAcfpsbmPFKPIHMQF0009-33-99 17:10:00 Test Item Value Reference Range Interpretation Comments Temp Orberth (test code = Temp Roberth) 37.0 [facility]IsmlkgkKZDDWYDWY0683-69-29 17:10:00 Test Item Value Reference Range Interpretation Comments O2 Sat Roberth (test code = O2 Sat Roberth) 27.0 40.0-70.0 L [facility]manIyodzgoFPDHNZJJY3950-37-47 17:10:00 Test Item Value Reference Range Interpretation Comments pCO2 Roberth (test code = pCO2 Roberth) 47 38-52 N [facility]manYtuuyhsLEGHQDIHH2020-60-54 17:10:00 Test Item Value Reference Range Interpretation Comments pH Roberth (test code = pH Roberth) 7.37 7.28-7.42 N [facility]manXmejgowWIOVOUSSE2998-78-93 17:10:00 Test Item Value Reference Range Interpretation Comments BE Roberth (test code = 1 See_Comment N [Automa rohit message] The BE Roberth) system which ge nerated this result transmit rohit reference range : <=2. The reference range was not used to interpr et this result as reji l/abnormal. [facility]manMqstcmtRRCITSKCI0645-24-92 17:10:00 Test Item Value Reference Range Interpretation Comments HCO3 Roberth (test code = HCO3 Roberth) 27.2 22.0-26.0 H [facility]manOyoovvyNWMBEVSBF9061-43-32 17:10:00 Test Item Value Reference Range Interpretation Comments pO2 Roberth (test code = pO2 Roberth) 19 20-49 L [facility]PdltvqxNSLBAMLNB5144-23-77 17:10:00 Test Item Value Reference Range Interpretation Comments Temp Roberth (test code = Temp Roberth) 37.0 [facility]manWalwznaMGWYAOEXN0793-12-47 17:10:00 Test Item Value Reference Range Interpretation Comments O2 Sat Roberth (test code = O2 Sat Roberth) 27.0 40.0-70.0 L [facility]manZbdpvemUQIOIXUXF8838-34-60 17:10:00 Test Item Value Reference Range Interpretation Comments pCO2 Roberth (test code = pCO2 Roberth) 47 38-52 N [facility]manKsuvsyjFQGVPIXTS6684-20-85 17:10:00 Test Item Value Reference Range Interpretation Comments pH Roberth (test code = pH Roberth) 7.37 7.28-7.42 N [facility]manHngnhzkVZPPRQLZG7097-01-95 17:10:00 Test Item Value Reference Range Interpretation Comments BE Roberth (test code = 1 See_Comment N [Automa rohit message] The BE Roberth) system which ge nerated this result transmit rohit reference range : <=2. The reference range was not used to interpr et this result as reji l/abnormal. [facility]manXeegespEYPSNCYOY8288-22-38 17:10:00 Test Item Value Reference Range Interpretation Comments HCO3 Roberth (test code = HCO3 Roberth) 27.2 22.0-26.0 H [facility]manMgzcmvvQWSJDIOIK7480-28-12 17:10:00 Test Item Value Reference Range Interpretation Comments pO2 Roberth (test code = pO2 Roberth) 19 20-49 L [facility]manMfqzhhaLZWZBWNXP6924-91-28 17:10:00 Test Item Value Reference Range Interpretation Comments Temp Roberth (test code = Temp Roberth) 37.0 [facility]manCbatnquLQOMWANLN9444-75-35 17:10:00 Test Item Value Reference Range Interpretation Comments O2 Sat Roberth (test code = O2 Sat Roberth) 27.0 40.0-70.0 L [facility]manEupycpcRHBIWVTQF0728-87-99 17:10:00 Test Item Value Reference Range Interpretation Comments pCO2 Roberth (test code = pCO2 Roberth) 47 38-52 N [facility]manJclldfnORNJSXLDO7690-64-16 17:10:00 Test Item Value Reference Range Interpretation Comments pH Roberth (test code = pH Roberth) 7.37 7.28-7.42 N [facility]manFeyllzdNEUQTYPDR5089-28-36 17:10:00 Test Item Value Reference Range Interpretation Comments BE Roberth (test code = 1 See_Comment N [Automa rohit message] The BE Roberth) system which ge nerated this result transmit rohit reference range : <=2. The reference range was not used to interpr et this result as reji l/abnormal. [facility]manApvalmuSQAHZXTBS4175-37-77 17:10:00 Test Item Value Reference Range Interpretation Comments HCO3 Roberth (test code = HCO3 Roberth) 27.2 22.0-26.0 H [facility]manPvhqyxkPJWKTZQSY2479-08-82 17:10:00 Test Item Value Reference Range Interpretation Comments pO2 Roberth (test code = pO2 Roberth) 19 20-49 L [facility]manMcnrhmkKWWRLMVVE5179-71-62 17:10:00 Test Item Value Reference Range Interpretation Comments Temp Roberth (test code = Temp Roberth) 37.0 [facility]manMnzjdkhMTHOYIJCW1443-01-71 17:10:00 Test Item Value Reference Range Interpretation Comments O2 Sat Roberth (test code = O2 Sat Roberth) 27.0 40.0-70.0 L [facility]manFstziaeLWDRURQIU4783-95-98 17:10:00 Test Item Value Reference Range Interpretation Comments pCO2 Roberth (test code = pCO2 Roberth) 47 38-52 N [facility]manJamdrcjMUBUQADVM6354-12-04 17:10:00 Test Item Value Reference Range Interpretation Comments pH Roberth (test code = pH Roberth) 7.37 7.28-7.42 N [facility]manJtaysoeZZBKAVKPO2626-53-19 17:10:00 Test Item Value Reference Range Interpretation Comments BE Roberth (test code = 1 See_Comment N [Automa rohit message] The BE Roberth) system which ge nerated this result transmit rohit reference range : <=2. The reference range was not used to interpr et this result as reji l/abnormal. [facility]manEczskcpGLWPMBCKU0793-96-09 17:10:00 Test Item Value Reference Range Interpretation Comments HCO3 Roberth (test code = HCO3 Roberth) 27.2 22.0-26.0 H [facility]manQzbrjckMSJEPHMDR7389-35-71 17:10:00 Test Item Value Reference Range Interpretation Comments pO2 Roberth (test code = pO2 Roberth) 19 20-49 L [facility] CenterPcybrwpFjheileewlwc5518-02-59 14:18:00 Test Item Value Reference Range Interpretation Comments Culture: Blood (test code = Culture: Blood) [facility] CenterEvtszewLaizgrjjsjjg2895-95-06 14:18:00 Test Item Value Reference Range Interpretation Comments Culture: Wound/Abscess w/Gram Stain (test code = Culture: Wound/Abscess w/Gram Stain) [facility] CenterKkwgiqoLmewdfpvleaf0871-47-47 14:18:00 Test Item Value Reference Range Interpretation Comments Culture: Blood (test code = Culture: Blood) [facility] CenterOqgrzzvTtcszvozezal4237-20-12 14:18:00 Test Item Value Reference Range Interpretation Comments Culture: Wound/Abscess w/Gram Stain (test code = Culture: Wound/Abscess w/Gram Stain) [facility] CenterHdaxymyXqzgbqskyhot3679-01-83 14:18:00 Test Item Value Reference Range Interpretation Comments Culture: Blood (test code = Culture: Blood) [facility] CenterSyyvcdlKvmkfletynrp9940-51-67 14:18:00 Test Item Value Reference Range Interpretation Comments Culture: Wound/Abscess w/Gram Stain (test code = Culture: Wound/Abscess w/Gram Stain) [facility] CenterKrvwbzhJkqzhhkxsgsg8831-17-30 14:18:00 Test Item Value Reference Range Interpretation Comments Culture: Blood (test code = Culture: Blood) [facility] CenterKefchnzCaqhpuztcgpp4169-20-67 14:18:00 Test Item Value Reference Range Interpretation Comments Culture: Wound/Abscess w/Gram Stain (test code = Culture: Wound/Abscess w/Gram Stain) [facility] CenterApsakolSdcycjanhrhu6444-69-45 14:18:00 Test Item Value Reference Range Interpretation Comments Culture: Blood (test code = Culture: Blood) [facility] CenterFajzmaiGacarlicgnkd3800-69-89 14:18:00 Test Item Value Reference Range Interpretation Comments Culture: Wound/Abscess w/Gram Stain (test code = Culture: Wound/Abscess w/Gram Stain) [facility]manMgkhbzgZFTIIFAJX3331-63-65 13:09:00 Test Item Value Reference Range Interpretation Comments Lactic Acid Lvl (test code = Lactic 1.0 0.5-2.2 N Acid Lvl) [facility]manQomdttcTSTBDAFOT6432-33-28 13:09:00 Test Item Value Reference Range Interpretation Comments Lactic Acid Lvl (test code = Lactic 1.0 0.5-2.2 N Acid Lvl) [facility]manCmygbkeUWLGOHPAY6985-64-81 13:09:00 Test Item Value Reference Range Interpretation Comments Lactic Acid Lvl (test code = Lactic 1.0 0.5-2.2 N Acid Lvl) [facility]manOnhtkeyABFLLLUSJ9125-96-63 13:09:00 Test Item Value Reference Range Interpretation Comments Lactic Acid Lvl (test code = Lactic 1.0 0.5-2.2 N Acid Lvl) [facility]manEbxoefmWIHPVBIZN1338-03-57 13:09:00 Test Item Value Reference Range Interpretation Comments Lactic Acid Lvl (test code = Lactic 1.0 0.5-2.2 N Acid Lvl) [facility]manZgtisftGKKGPRXOW2520-58-90 12:20:00 Test Item Value Reference Range Interpretation Comments U Preg (test code = U Negative (09/01/2011 N Preg) 07:20:00) [facility]ZegektwEPLSCAITPM5869-03-67 12:20:00 Test Item Value Reference Range Interpretation Comments UA Sq Epi (test code Occasional /LPF N = UA Sq Epi) (09/01/2011 07:20:00) [facility]FalthrsTLHOFDGWZV8713-23-96 12:20:00 Test Item Value Reference Range Interpretation Comments UA Leuk Est (test Negative (09/01/2011 N code = UA Leuk Est) 07:20:00) [facility] WestIhffljkSFZNTLIQGT8637-03-52 12:20:00 Test Item Value Reference Range Interpretation Comments UA Nitrite (test code Negative (09/01/2011 N = UA Nitrite) 07:20:00) [facility] WestGjcriwtBABZKNPYWJ9300-30-04 12:20:00 Test Item Value Reference Range Interpretation Comments UA Urobilinogen (test code = UA 0.2 0.1-1.0 N Urobilinogen) [facility] WestCzuvcirZYVICRAFXX4102-66-39 12:20:00 Test Item Value Reference Range Interpretation Comments UA Blood (test code = Negative (09/01/2011 N UA Blood) 07:20:00) [facility] WestFmfveovVMQLPGASII7877-00-08 12:20:00 Test Item Value Reference Range Interpretation Comments UA Ketones (test code = >=80 mg/dL A UA Ketones) *ABN*(09/01/2011 07:20:00) [facility] HospitalBbdjiibCPJPXPDAPI0688-68-02 12:20:00 Test Item Value Reference Range Interpretation Comments UA Protein (test code Negative (09/01/2011 N = UA Protein) 07:20:00) [facility] WestCqlprahXKVZONUOKF4409-87-41 12:20:00 Test Item Value Reference Range Interpretation Comments UA pH (test code = UA pH) 6.0 1 5.0-8.0 N [facility] HospitalFttddgvMREVOQGKKK1411-65-86 12:20:00 Test Item Value Reference Range Interpretation Comments UA Bili (test code = Negative (09/01/2011 N UA Bili) 07:20:00) [facility] WestFxkiaetTLWJRODQZX0435-21-54 12:20:00 Test Item Value Reference Range Interpretation Comments UA Glucose (test code = >=1000 mg/dL A UA Glucose) *ABN*(09/01/2011 07:20:00) [facility] WestKwrzmeaMYVBNTVZFI5245-34-21 12:20:00 Test Item Value Reference Range Interpretation Comments UA Spec Grav (test code = UA Spec 1.035 1 H Grav) [facility] HospitalOokdabaDJCSJYUVWG1233-67-47 12:20:00 Test Item Value Reference Range Interpretation Comments UA Turbidity (test code = Clear (09/01/2011 N UA Turbidity) 07:20:00) [facility] WestEmttvweBGIWZWKUNP4019-43-38 12:20:00 Test Item Value Reference Range Interpretation Comments UA Color (test code = Yellow *NA*(09/01/2011 UA Color) 07:20:00) [facility] HospitalRdhvczsUIEVOENMX2880-76-62 12:20:00 Test Item Value Reference Range Interpretation Comments U Preg (test code = U Negative (09/01/2011 N Preg) 07:20:00) [facility] WestIimpmhuVZJIFRSAUJ2577-61-57 12:20:00 Test Item Value Reference Range Interpretation Comments UA Sq Epi (test code Occasional /LPF N = UA Sq Epi) (09/01/2011 07:20:00) [facility] WestGrngkmtPAVCFUAFQK6810-23-75 12:20:00 Test Item Value Reference Range Interpretation Comments UA Leuk Est (test Negative (09/01/2011 N code = UA Leuk Est) 07:20:00) [facility] WestBletadoEFUOCPEEYG8196-95-77 12:20:00 Test Item Value Reference Range Interpretation Comments UA Nitrite (test code Negative (09/01/2011 N = UA Nitrite) 07:20:00) [facility] WestWupdjbpYYYRZNMYBI8401-72-81 12:20:00 Test Item Value Reference Range Interpretation Comments UA Urobilinogen (test code = UA 0.2 0.1-1.0 N Urobilinogen) [facility] WestOjaxgkzSTIFUCKMFI8076-21-01 12:20:00 Test Item Value Reference Range Interpretation Comments UA Blood (test code = Negative (09/01/2011 N UA Blood) 07:20:00) [facility] WestTtnoawmHYUYOUFSPW5758-59-76 12:20:00 Test Item Value Reference Range Interpretation Comments UA Ketones (test code = >=80 mg/dL A UA Ketones) *ABN*(09/01/2011 07:20:00) [facility]IfbpbteWLRHONYYIH9750-62-09 12:20:00 Test Item Value Reference Range Interpretation Comments UA Protein (test code Negative (09/01/2011 N = UA Protein) 07:20:00) [facility] StationOonegscGNTUJESVQQ0302-63-26 12:20:00 Test Item Value Reference Range Interpretation Comments UA pH (test code = UA pH) 6.0 1 5.0-8.0 N [facility] WestJkktiatDRCHHABRKF1217-77-66 12:20:00 Test Item Value Reference Range Interpretation Comments UA Bili (test code = Negative (09/01/2011 N UA Bili) 07:20:00) [facility] WestWrakafhXLOXMYLIQH3070-30-04 12:20:00 Test Item Value Reference Range Interpretation Comments UA Glucose (test code = >=1000 mg/dL A UA Glucose) *ABN*(09/01/2011 07:20:00) [facility] WestEvsxogyCPMDXMOBIT9711-82-00 12:20:00 Test Item Value Reference Range Interpretation Comments UA Spec Grav (test code = UA Spec 1.035 1 H Grav) [facility] WestBxbbqzyUEBFJAPQVB3369-55-30 12:20:00 Test Item Value Reference Range Interpretation Comments UA Turbidity (test code = Clear (09/01/2011 N UA Turbidity) 07:20:00) [facility] WestPgnqzypAOVHAMVJNH9371-63-48 12:20:00 Test Item Value Reference Range Interpretation Comments UA Color (test code = Yellow *NA*(09/01/2011 UA Color) 07:20:00) [facility] HospitalOlusuloWSBGEFUYY1094-10-25 12:20:00 Test Item Value Reference Range Interpretation Comments U Preg (test code = U Negative (09/01/2011 N Preg) 07:20:00) [facility] HospitalOfvtpzvUQCOHUHPXQ7570-22-13 12:20:00 Test Item Value Reference Range Interpretation Comments UA Sq Epi (test code Occasional /LPF N = UA Sq Epi) (09/01/2011 07:20:00) [facility] HospitalQeyvyoiZNMGKIFZIN2209-55-62 12:20:00 Test Item Value Reference Range Interpretation Comments UA Leuk Est (test Negative (09/01/2011 N code = UA Leuk Est) 07:20:00) [facility]CwiovbpPJTGWMKQOD0594-14-84 12:20:00 Test Item Value Reference Range Interpretation Comments UA Nitrite (test code Negative (09/01/2011 N = UA Nitrite) 07:20:00) [facility] HospitalMiqzqylNLDLDYTFSC0481-89-79 12:20:00 Test Item Value Reference Range Interpretation Comments UA Urobilinogen (test code = UA 0.2 0.1-1.0 N Urobilinogen) [facility] HospitalJsxruvuPQFEQATESV3139-45-61 12:20:00 Test Item Value Reference Range Interpretation Comments UA Blood (test code = Negative (09/01/2011 N UA Blood) 07:20:00) [facility] HospitalPetbpatWDKIPHNZYX9420-94-34 12:20:00 Test Item Value Reference Range Interpretation Comments UA Ketones (test code = >=80 mg/dL A UA Ketones) *ABN*(09/01/2011 07:20:00) [facility] HospitalGaotnxrWFRIVLAGJP0365-85-55 12:20:00 Test Item Value Reference Range Interpretation Comments UA Protein (test code Negative (09/01/2011 N = UA Protein) 07:20:00) [facility]EvygnhsWDVWZTJREN9780-48-39 12:20:00 Test Item Value Reference Range Interpretation Comments UA pH (test code = UA pH) 6.0 1 5.0-8.0 N [facility] HospitalEksycqxCMKYYHJFOA4197-33-03 12:20:00 Test Item Value Reference Range Interpretation Comments UA Bili (test code = Negative (09/01/2011 N UA Bili) 07:20:00) [facility] DmafsfvQTNNCZPITW2736-73-55 12:20:00 Test Item Value Reference Range Interpretation Comments UA Glucose (test code = >=1000 mg/dL A UA Glucose) *ABN*(09/01/2011 07:20:00) [facility] HospitalZlidhjuLIWQZIACOL2285-32-47 12:20:00 Test Item Value Reference Range Interpretation Comments UA Spec Grav (test code = UA Spec 1.035 1 H Grav) [facility] HospitalUweewalEGIHCJSNNH2653-79-24 12:20:00 Test Item Value Reference Range Interpretation Comments UA Turbidity (test code = Clear (09/01/2011 N UA Turbidity) 07:20:00) [facility] HospitalTnqcpdwZNHFAWDVPM7214-26-06 12:20:00 Test Item Value Reference Range Interpretation Comments UA Color (test code = Yellow *NA*(09/01/2011 UA Color) 07:20:00) [facility] HospitalBintjvbSXRENTZXK1694-83-03 12:20:00 Test Item Value Reference Range Interpretation Comments U Preg (test code = U Negative (09/01/2011 N Preg) 07:20:00) [facility] HospitalNxaxjhjYWBJVVHXZG1783-75-75 12:20:00 Test Item Value Reference Range Interpretation Comments UA Sq Epi (test code Occasional /LPF N = UA Sq Epi) (09/01/2011 07:20:00) [facility] HospitalTockpfkTAZQOXBDSF2419-12-45 12:20:00 Test Item Value Reference Range Interpretation Comments UA Leuk Est (test Negative (09/01/2011 N code = UA Leuk Est) 07:20:00) [facility] HospitalOkiktjjTNCVGEXFGS4975-74-79 12:20:00 Test Item Value Reference Range Interpretation Comments UA Nitrite (test code Negative (09/01/2011 N = UA Nitrite) 07:20:00) [facility] HospitalOdvkxaxUXXYAWCBWO0764-14-29 12:20:00 Test Item Value Reference Range Interpretation Comments UA Urobilinogen (test code = UA 0.2 0.1-1.0 N Urobilinogen) [facility] HospitalKmzzguwQVEWPLZQIG0205-53-38 12:20:00 Test Item Value Reference Range Interpretation Comments UA Blood (test code = Negative (09/01/2011 N UA Blood) 07:20:00) [facility] HospitalOawjnwrDWLLITHXHS9378-24-14 12:20:00 Test Item Value Reference Range Interpretation Comments UA Ketones (test code = >=80 mg/dL A UA Ketones) *ABN*(09/01/2011 07:20:00) [facility] WestCuevfreREOTWCCSDU2592-41-89 12:20:00 Test Item Value Reference Range Interpretation Comments UA Protein (test code Negative (09/01/2011 N = UA Protein) 07:20:00) [facility] WestEikuomnJHXIXGRIPS5771-74-10 12:20:00 Test Item Value Reference Range Interpretation Comments UA pH (test code = UA pH) 6.0 1 5.0-8.0 N [facility] HospitalGjmupylPVKONFKBQL6964-70-84 12:20:00 Test Item Value Reference Range Interpretation Comments UA Bili (test code = Negative (09/01/2011 N UA Bili) 07:20:00) [facility] WestYgstevuRAFXGSIHBP0952-81-00 12:20:00 Test Item Value Reference Range Interpretation Comments UA Glucose (test code = >=1000 mg/dL A UA Glucose) *ABN*(09/01/2011 07:20:00) [facility] HospitalNtssihaONBHABHSPW6683-73-05 12:20:00 Test Item Value Reference Range Interpretation Comments UA Spec Grav (test code = UA Spec 1.035 1 H Grav) [facility] HospitalYkiizzgGCXUVUMDXA2561-85-71 12:20:00 Test Item Value Reference Range Interpretation Comments UA Turbidity (test code = Clear (09/01/2011 N UA Turbidity) 07:20:00) [facility] HospitalQcavqpyXSLUSHFEEN3456-09-62 12:20:00 Test Item Value Reference Range Interpretation Comments UA Color (test code = Yellow *NA*(09/01/2011 UA Color) 07:20:00) [facility] HospitalIzcrzmqKRJVVXJXY8409-00-43 12:20:00 Test Item Value Reference Range Interpretation Comments U Preg (test code = U Negative (09/01/2011 N Preg) 07:20:00) [facility] WestFjwpwsyHETGVYFOIW8337-49-94 12:20:00 Test Item Value Reference Range Interpretation Comments UA Sq Epi (test code Occasional /LPF N = UA Sq Epi) (09/01/2011 07:20:00) [facility] WestVjelkymZNSDFRCOTS4230-32-07 12:20:00 Test Item Value Reference Range Interpretation Comments UA Leuk Est (test Negative (09/01/2011 N code = UA Leuk Est) 07:20:00) [facility] WestCiektliJSPYOELAKS7004-55-49 12:20:00 Test Item Value Reference Range Interpretation Comments UA Nitrite (test code Negative (09/01/2011 N = UA Nitrite) 07:20:00) [facility] WestWxjfljrINRYARJCUY3189-26-95 12:20:00 Test Item Value Reference Range Interpretation Comments UA Urobilinogen (test code = UA 0.2 0.1-1.0 N Urobilinogen) [facility] StationOuumfraLRRGQYGBPL5685-25-48 12:20:00 Test Item Value Reference Range Interpretation Comments UA Blood (test code = Negative (09/01/2011 N UA Blood) 07:20:00) [facility] StationWlsrdysXYBIMNHNTB1136-13-73 12:20:00 Test Item Value Reference Range Interpretation Comments UA Ketones (test code = >=80 mg/dL A UA Ketones) *ABN*(09/01/2011 07:20:00) [facility] StationYakuscnEOGUSTLREM6111-99-18 12:20:00 Test Item Value Reference Range Interpretation Comments UA Protein (test code Negative (09/01/2011 N = UA Protein) 07:20:00) [facility] StationJhhbyizTSIAKAMRII0891-26-62 12:20:00 Test Item Value Reference Range Interpretation Comments UA pH (test code = UA pH) 6.0 1 5.0-8.0 N [facility] WestPsgjligWIYBHIWLME6635-12-54 12:20:00 Test Item Value Reference Range Interpretation Comments UA Bili (test code = Negative (09/01/2011 N UA Bili) 07:20:00) [facility] WestZdlbeyuLEIZJKMPQE3792-58-12 12:20:00 Test Item Value Reference Range Interpretation Comments UA Glucose (test code = >=1000 mg/dL A UA Glucose) *ABN*(09/01/2011 07:20:00) [facility] WestTfizxozOSKUFBATOC7751-47-58 12:20:00 Test Item Value Reference Range Interpretation Comments UA Spec Grav (test code = UA Spec 1.035 1 H Grav) [facility] WestHwiavunIVDZDFDAIJ5714-77-24 12:20:00 Test Item Value Reference Range Interpretation Comments UA Turbidity (test code = Clear (09/01/2011 N UA Turbidity) 07:20:00) [facility] HospitalTeskuntDYPMSGGISE3296-35-97 12:20:00 Test Item Value Reference Range Interpretation Comments UA Color (test code = Yellow *NA*(09/01/2011 UA Color) 07:20:00) [facility]GlfdsnbMWJAYMUPW9567-45-07 08:00:00 Test Item Value Reference Range Interpretation Comments Lactic Acid Lvl (test code = Lactic 2.8 0.5-2.2 H Acid Lvl) [facility]manCltwtsfXTRTTIEZI5586-01-70 08:00:00 Test Item Value Reference Range Interpretation Comments Lactic Acid Lvl (test code = Lactic 2.8 0.5-2.2 H Acid Lvl) [facility]manFvcjfxtJZMUHRYIZ1596-28-51 08:00:00 Test Item Value Reference Range Interpretation Comments Lactic Acid Lvl (test code = Lactic 2.8 0.5-2.2 H Acid Lvl) [facility]manYoylwwtACUORUUQK0593-83-93 08:00:00 Test Item Value Reference Range Interpretation Comments Lactic Acid Lvl (test code = Lactic 2.8 0.5-2.2 H Acid Lvl) [facility]manRleyigaDRHMCEGLW2860-49-67 08:00:00 Test Item Value Reference Range Interpretation Comments Lactic Acid Lvl (test code = Lactic 2.8 0.5-2.2 H Acid Lvl) [facility]manOxalqwpCKSYGIKXX6172-71-91 07:47:00 Test Item Value Reference Range Interpretation Comments Magnesium Lvl (test code = Magnesium 1.5 1.8-2.4 L Lvl) [facility] CampusUdfaglfGAIHPSIILA4668-81-38 07:47:00 Test Item Value Reference Range Interpretation Comments Polychrom (test code = Slight (09/01/2011 N Polychrom) 02:47:00) [facility] CampusPwjoqmaNKOICYVNVY3516-97-98 07:47:00 Test Item Value Reference Range Interpretation Comments Anisocyte (test code = 1+ *ABN*(09/01/2011 A Anisocyte) 02:47:00) [facility] CampusNqggtebTAKLOGYCND8281-93-08 07:47:00 Test Item Value Reference Range Interpretation Comments Large Plt (test code = Slight *ABN*(09/01/2011 A Large Plt) 02:47:00) [facility] CampusZjmrawvZELHTXTLIG5046-07-10 07:47:00 Test Item Value Reference Range Interpretation Comments Tear Cell (test code = Tear Cell) Occasional [facility] CampusXjvdkrxBSIQSIABEV8988-81-34 07:47:00 Test Item Value Reference Range Interpretation Comments Elliptocyte (test code = Slight A Elliptocyte) *ABN*(09/01/2011 02:47:00) [facility]KvctwpjEDQWONALH1181-17-59 07:47:00 Test Item Value Reference Range Interpretation Comments Magnesium Lvl (test code = Magnesium 1.5 1.8-2.4 L Lvl) [facility] CampusJvjylxlKFFHCPBUFR1560-39-09 07:47:00 Test Item Value Reference Range Interpretation Comments Polychrom (test code = Slight (09/01/2011 N Polychrom) 02:47:00) [facility] CampusArwishfWLKFLFZIGE4274-01-36 07:47:00 Test Item Value Reference Range Interpretation Comments Anisocyte (test code = 1+ *ABN*(09/01/2011 A Anisocyte) 02:47:00) [facility] CampusFplawhiLKPPZTRHMU8783-99-11 07:47:00 Test Item Value Reference Range Interpretation Comments Large Plt (test code = Slight *ABN*(09/01/2011 A Large Plt) 02:47:00) [facility] CampusFbgyodwDRMIHJZBZW9015-77-79 07:47:00 Test Item Value Reference Range Interpretation Comments Tear Cell (test code = Tear Cell) Occasional [facility] CampusWqbdizdEAJYXBMNEE7925-52-99 07:47:00 Test Item Value Reference Range Interpretation Comments Elliptocyte (test code = Slight A Elliptocyte) *ABN*(09/01/2011 02:47:00) [facility]manFmfahfqLMGMGGYPV8313-00-38 07:47:00 Test Item Value Reference Range Interpretation Comments Magnesium Lvl (test code = Magnesium 1.5 1.8-2.4 L Lvl) [facility] CampusLialnjhDSXAUAQEIJ8461-70-33 07:47:00 Test Item Value Reference Range Interpretation Comments Polychrom (test code = Slight (09/01/2011 N Polychrom) 02:47:00) [facility] CampusPkuwwwjFWFXIXBOOV0005-33-50 07:47:00 Test Item Value Reference Range Interpretation Comments Anisocyte (test code = 1+ *ABN*(09/01/2011 A Anisocyte) 02:47:00) [facility] CampusWalaestNOQJOQYBJU9378-63-90 07:47:00 Test Item Value Reference Range Interpretation Comments Large Plt (test code = Slight *ABN*(09/01/2011 A Large Plt) 02:47:00) [facility] CampusHctvcyqIAPLVSSRIM4970-43-08 07:47:00 Test Item Value Reference Range Interpretation Comments Tear Cell (test code = Tear Cell) Occasional [facility] CampusUwofkmkZKMNKQOPOL7726-91-60 07:47:00 Test Item Value Reference Range Interpretation Comments Elliptocyte (test code = Slight A Elliptocyte) *ABN*(09/01/2011 02:47:00) [facility]manDaqwgovHNPHIGOUU3678-99-94 07:47:00 Test Item Value Reference Range Interpretation Comments Magnesium Lvl (test code = Magnesium 1.5 1.8-2.4 L Lvl) [facility] CampusAujmrwkYMJKTBIWVU2590-21-03 07:47:00 Test Item Value Reference Range Interpretation Comments Polychrom (test code = Slight (09/01/2011 N Polychrom) 02:47:00) [facility] CampusBurafjnWJRZEANCKO2075-87-20 07:47:00 Test Item Value Reference Range Interpretation Comments Anisocyte (test code = 1+ *ABN*(09/01/2011 A Anisocyte) 02:47:00) [facility] CampusZexflcyLEOOSQPNCG0393-27-68 07:47:00 Test Item Value Reference Range Interpretation Comments Large Plt (test code = Slight *ABN*(09/01/2011 A Large Plt) 02:47:00) [facility] CampusOheqvsvWQBZLRMDEP0045-40-03 07:47:00 Test Item Value Reference Range Interpretation Comments Tear Cell (test code = Tear Cell) Occasional [facility] CampusPjhhyppLTLKFVLANJ7440-82-99 07:47:00 Test Item Value Reference Range Interpretation Comments Elliptocyte (test code = Slight A Elliptocyte) *ABN*(09/01/2011 02:47:00) [facility]manNnxwxsfKCZIQXFAJ3754-08-28 07:47:00 Test Item Value Reference Range Interpretation Comments Magnesium Lvl (test code = Magnesium 1.5 1.8-2.4 L Lvl) [facility] CampusDjbzljaOGDRZOBXKE7634-42-12 07:47:00 Test Item Value Reference Range Interpretation Comments Polychrom (test code = Slight (09/01/2011 N Polychrom) 02:47:00) [facility] CampusIqjlljgHQETOVTVGD1120-91-50 07:47:00 Test Item Value Reference Range Interpretation Comments Anisocyte (test code = 1+ *ABN*(09/01/2011 A Anisocyte) 02:47:00) [facility] CampusNrlcfbhWYNPHQJELD4396-35-29 07:47:00 Test Item Value Reference Range Interpretation Comments Large Plt (test code = Slight *ABN*(09/01/2011 A Large Plt) 02:47:00) [facility] CampusZtddzupOEQFZYKKAT3639-91-00 07:47:00 Test Item Value Reference Range Interpretation Comments Tear Cell (test code = Tear Cell) Occasional [facility] CampusHokenrzAWBSTTEAUP2773-43-58 07:47:00 Test Item Value Reference Range Interpretation Comments Elliptocyte (test code = Slight A Elliptocyte) *ABN*(09/01/2011 02:47:00) [facility] GLUCOSE [id number] 17:02:00 Test Item Value Reference Range Interpretation Comments Comment1 (test code = Comment1) Notify RN/ [facility] GLUCOSE [id number] 17:02:00 Test Item Value Reference Range Interpretation Comments Gluc POC Lifscn (test code = Gluc POC 134 65-110 H Lifscn) [facility] GLUCOSE [id number] 17:02:00 Test Item Value Reference Range Interpretation Comments Comment1 (test code = Comment1) Notify TABATHA/ [facility] GLUCOSE [id number] 17:02:00 Test Item Value Reference Range Interpretation Comments Gluc POC Lifscn (test code = Gluc POC 134 65-110 H Lifscn) [facility] GLUCOSE [id number] 17:02:00 Test Item Value Reference Range Interpretation Comments Comment1 (test code = Comment1) Notify RN/ [facility] GLUCOSE [id number] 17:02:00 Test Item Value Reference Range Interpretation Comments Gluc POC Lifscn (test code = Gluc POC 134 65-110 H Lifscn) [facility] GLUCOSE [id number] 17:02:00 Test Item Value Reference Range Interpretation Comments Comment1 (test code = Comment1) Notify TABATHA/ [facility] GLUCOSE [id number] 17:02:00 Test Item Value Reference Range Interpretation Comments Gluc POC Lifscn (test code = Gluc POC 134 65-110 H Lifscn) [facility] GLUCOSE [id number] 17:02:00 Test Item Value Reference Range Interpretation Comments Comment1 (test code = Comment1) Notify RN/ [facility] GLUCOSE [id number] 17:02:00 Test Item Value Reference Range Interpretation Comments Gluc POC Lifscn (test code = Gluc POC 134 65-110 H Lifscn) [facility] GLUCOSE [id number] 13:45:00 Test Item Value Reference Range Interpretation Comments Gluc POC Lifscn (test code = Gluc POC 182 65-110 H Lifscn) [facility] GLUCOSE [id number] 13:45:00 Test Item Value Reference Range Interpretation Comments Comment1 (test code = Comment1) Notify TABATHA/ [facility] GLUCOSE [id number] 13:45:00 Test Item Value Reference Range Interpretation Comments Gluc POC Lifscn (test code = Gluc POC 182 65-110 H Lifscn) [facility] GLUCOSE [id number] 13:45:00 Test Item Value Reference Range Interpretation Comments Comment1 (test code = Comment1) Notify RN/ [facility] GLUCOSE [id number] 13:45:00 Test Item Value Reference Range Interpretation Comments Gluc POC Lifscn (test code = Gluc POC 182 65-110 H Lifscn) [facility] GLUCOSE [id number] 13:45:00 Test Item Value Reference Range Interpretation Comments Comment1 (test code = Comment1) Notify RN/ [facility] GLUCOSE [id number] 13:45:00 Test Item Value Reference Range Interpretation Comments Gluc POC Lifscn (test code = Gluc POC 182 65-110 H Lifscn) [facility] GLUCOSE [id number] 13:45:00 Test Item Value Reference Range Interpretation Comments Comment1 (test code = Comment1) Notify TABATHA/ [facility] GLUCOSE [id number] 13:45:00 Test Item Value Reference Range Interpretation Comments Gluc POC Lifscn (test code = Gluc POC 182 65-110 H Lifscn) [facility] GLUCOSE [id number] 13:45:00 Test Item Value Reference Range Interpretation Comments Comment1 (test code = Comment1) [facility]avi [facility]SfxjcpnHAHKSPPDR7101-51-99 10:22:00 Test Item Value Reference Range Interpretation Comments Phosphorus (test code = Phosphorus) 3.0 2.5-4.5 N [facility]manYtqtesrEEZDECSBO4438-05-21 10:22:00 Test Item Value Reference Range Interpretation Comments Magnesium Lvl (test code = Magnesium 1.8 1.8-2.4 N Lvl) [facility]manFqrgbncXCPCUWKRH3255-02-81 10:22:00 Test Item Value Reference Range Interpretation Comments Chloride Lvl (test code = Chloride Lvl) 107 95-109 N [facility]manBdvtztkRAZGCDIXE3162-89-40 10:22:00 Test Item Value Reference Range Interpretation Comments Potassium Lvl (test code = Potassium 3.0 3.5-5.1 A Lvl) [facility]manByocyluNFIJZBJHF4556-56-12 10:22:00 Test Item Value Reference Range Interpretation Comments Sodium Lvl (test code = Sodium Lvl) 141 135-145 N [facility]BswcdfkLDVXEJAVL7251-99-51 10:22:00 Test Item Value Reference Range Interpretation Comments Creatinine Lvl (test code = Creatinine 0.6 0.5-1.4 N Lvl) [facility]manIbsiyjdTTHTJXKFV2752-40-84 10:22:00 Test Item Value Reference Range Interpretation Comments CO2 (test code = CO2) 23 24-32 L [facility]EnkqjizJTMFTXNHI5792-39-01 10:22:00 Test Item Value Reference Range Interpretation Comments Calcium Lvl (test code = Calcium Lvl) 7.3 8.5-10.5 L [facility]manTkpzylkNNSJUWHES6103-37-09 10:22:00 Test Item Value Reference Range Interpretation Comments Glucose Lvl (test code = Glucose Lvl) 136 [facility]AxpotxcOZULIGSTV4559-01-10 10:22:00 Test Item Value Reference Range Interpretation Comments AGAP (test code = AGAP) 14.0 10.0-20.0 N [facility]manEeotjzzAVIXXUEVV9393-38-21 10:22:00 Test Item Value Reference Range Interpretation Comments BUN (test code = BUN) 5 7-22 L [facility]QgsautzOFJRKFDATY5969-81-22 10:22:00 Test Item Value Reference Range Interpretation Comments Segs (test code = Segs) 69.6 45.0-75.0 N [facility] CampusTfmwkjmGACQPJWVYC1292-19-62 10:22:00 Test Item Value Reference Range Interpretation Comments Lymphocytes (test code = Lymphocytes) 21.5 20.0-40.0 N [facility] CampusHlxaeelHUQKYPVKSI3774-32-53 10:22:00 Test Item Value Reference Range Interpretation Comments Monocytes (test code = Monocytes) 7.6 2.0-12.0 N [facility] CampusUhvlmglAHUCKUZSIG2371-96-40 10:22:00 Test Item Value Reference Range Interpretation Comments Eosinophils (test code = 1.0 See_Comment N [A utomated message] The Eosinophils) system which ge nerated this result tra nsmitted reference range : <=4.0. The reference r leo was not used to int erpret this result as normal/abnormal . [facility] CampusUfxsdshSUGALQZOSJ3864-88-18 10:22:00 Test Item Value Reference Range Interpretation Comments Basophils (test code = 0.3 See_Comment N [Aut omated message] The Basophils) system which ge nerated this result tra nsmitted reference range : <=1.0. The reference r leo was not used to int erpret this result as normal/abnormal . [facility] CampusWkyticyRRRPSZNNLB9609-58-27 10:22:00 Test Item Value Reference Range Interpretation Comments Segs-Bands # (test code = Segs-Bands #) 4.8 1.5-8.1 N [facility] CampusTuyslixYSAVVZKYYT0472-16-55 10:22:00 Test Item Value Reference Range Interpretation Comments Eosinophils # (test code 0.1 See_Comment N [A utomated message] The = Eosinophils #) system ic h generated this result tra nsmitted reference range : <=0.5. The reference r leo was not used to int erpret this result as normal/abnormal . [facility] CampusAjomchuMLTTHSHILE8509-92-53 10:22:00 Test Item Value Reference Range Interpretation Comments Lymphocytes # (test code = Lymphocytes 1.5 1.0-5.5 N #) [facility] CampusFgvhzfsCQVEEGXUPY0355-94-81 10:22:00 Test Item Value Reference Range Interpretation Comments Monocytes # (test code 0.5 See_Comment N [Aut omated message] The = Monocytes #) system which generated this result tra nsmitted reference range : <=0.8. The reference r leo was not used to int erpret this result as normal/abnormal . [facility] CampusQbsfxdrGJIUIAAXBD9308-64-79 10:22:00 Test Item Value Reference Range Interpretation Comments Basophils # (test code 0.0 See_Comment N [Aut omated message] The = Basophils #) system which generated this result tra nsmitted reference range : <=0.2. The reference r leo was not used to int erpret this result as normal/abnormal . [facility] CampusBkcuaeaOJGIMRGRVP5040-23-97 10:22:00 Test Item Value Reference Range Interpretation Comments MPV (test code = MPV) 11.0 7.4-10.4 H [facility] CampusCsxewpqJORBSRYPUW7455-59-10 10:22:00 Test Item Value Reference Range Interpretation Comments Platelet (test code = Platelet) 161 133-450 N [facility] CampusLtzcejlNTYBKBNTFS4295-83-22 10:22:00 Test Item Value Reference Range Interpretation Comments MCH (test code = MCH) 29.6 pg 27.0-31.0 N [facility] CampusFuigjxzQBDOKLJJBN2479-84-08 10:22:00 Test Item Value Reference Range Interpretation Comments MCHC (test code = MCHC) 35.4 32.0-36.0 N [facility] CampusCsigsnmUQEDRFSDUY4556-41-29 10:22:00 Test Item Value Reference Range Interpretation Comments RDW (test code = RDW) 14.1 11.5-14.5 N [facility] CampusWnynnwmJZBHMSBHNA8548-33-87 10:22:00 Test Item Value Reference Range Interpretation Comments WBC (test code = WBC) 6.8 3.7-10.4 N [facility] CampusWxnsafpRGXEDACXJK6844-73-60 10:22:00 Test Item Value Reference Range Interpretation Comments MCV (test code = MCV) 83.5 81.0-99.0 N [facility] CampusZhotcxhHNJTRQAMLQ7662-50-90 10:22:00 Test Item Value Reference Range Interpretation Comments RBC (test code = RBC) 4.44 4.20-5.40 N [facility] CampusPumiscdPGGIBILNXA7903-66-06 10:22:00 Test Item Value Reference Range Interpretation Comments Hgb (test code = Hgb) 13.1 12.0-16.0 N [facility] CampusHqicvwdSNQDFRGLCL4538-19-05 10:22:00 Test Item Value Reference Range Interpretation Comments Hct (test code = Hct) 37.1 36.0-48.0 N [facility]okbxdgJDADTBEJK1809-34-02 10:22:00 Test Item Value Reference Range Interpretation Comments Phosphorus (test code = Phosphorus) 3.0 2.5-4.5 N [facility]YmfvzkcCBGMCQGXX6093-10-32 10:22:00 Test Item Value Reference Range Interpretation Comments Magnesium Lvl (test code = Magnesium 1.8 1.8-2.4 N Lvl) [facility]PkqwlqkFAFHDGHME1532-01-39 10:22:00 Test Item Value Reference Range Interpretation Comments Chloride Lvl (test code = Chloride Lvl) 107 95-109 N [facility]XgmwxzkLXAQZKPQP4170-88-04 10:22:00 Test Item Value Reference Range Interpretation Comments Potassium Lvl (test code = Potassium 3.0 3.5-5.1 A Lvl) [facility]ClahhdwVOYOQEEZZ3981-75-19 10:22:00 Test Item Value Reference Range Interpretation Comments Sodium Lvl (test code = Sodium Lvl) 141 135-145 N [facility]OdrwizgFTWSVPDWY0020-87-75 10:22:00 Test Item Value Reference Range Interpretation Comments Creatinine Lvl (test code = Creatinine 0.6 0.5-1.4 N Lvl) [facility]NxzelbaXOZHFCRTO2382-17-13 10:22:00 Test Item Value Reference Range Interpretation Comments CO2 (test code = CO2) 23 24-32 L [facility]MtkmgnwADZDMQWTX1247-08-05 10:22:00 Test Item Value Reference Range Interpretation Comments Calcium Lvl (test code = Calcium Lvl) 7.3 8.5-10.5 L [facility]manZltjqzzLQYFXRATS6751-95-79 10:22:00 Test Item Value Reference Range Interpretation Comments Glucose Lvl (test code = Glucose Lvl) 136 [facility]ObhrjszIXKADRKFI0287-00-94 10:22:00 Test Item Value Reference Range Interpretation Comments AGAP (test code = AGAP) 14.0 10.0-20.0 N [facility]manLuwfxgpWOBTPWSYN8465-44-41 10:22:00 Test Item Value Reference Range Interpretation Comments BUN (test code = BUN) 5 7-22 L [facility] HospitalWicljafIEOTAZKDYH0307-44-38 10:22:00 Test Item Value Reference Range Interpretation Comments Segs (test code = Segs) 69.6 45.0-75.0 N [facility] CampusEmkthggBTGPKTZRGC9383-84-74 10:22:00 Test Item Value Reference Range Interpretation Comments Lymphocytes (test code = Lymphocytes) 21.5 20.0-40.0 N [facility] CampusZnmnyghQTXGDUCVXV1887-81-95 10:22:00 Test Item Value Reference Range Interpretation Comments Monocytes (test code = Monocytes) 7.6 2.0-12.0 N [facility] CampusReaangsPCFKZSJDUT0815-15-79 10:22:00 Test Item Value Reference Range Interpretation Comments Eosinophils (test code = 1.0 See_Comment N [A utomated message] The Eosinophils) system which ge nerated this result tra nsmitted reference range : <=4.0. The reference r leo was not used to int erpret this result as normal/abnormal . [facility] CampusSdiibtwWIDONNHKRJ2152-21-21 10:22:00 Test Item Value Reference Range Interpretation Comments Basophils (test code = 0.3 See_Comment N [Aut omated message] The Basophils) system which ge nerated this result tra nsmitted reference range : <=1.0. The reference r leo was not used to int erpret this result as normal/abnormal . [facility] CampusJlfktuzBKGONNEKNO2476-27-30 10:22:00 Test Item Value Reference Range Interpretation Comments Segs-Bands # (test code = Segs-Bands #) 4.8 1.5-8.1 N [facility] CampusAnpsewbXUSUOYGYWG8210-13-58 10:22:00 Test Item Value Reference Range Interpretation Comments Eosinophils # (test code 0.1 See_Comment N [A utomated message] The = Eosinophils #) system [facility] h generated this result tra nsmitted reference range : <=0.5. The reference r leo was not used to int erpret this result as normal/abnormal . [facility] CampusMacmjzwTMFKIZFZST9728-70-00 10:22:00 Test Item Value Reference Range Interpretation Comments Lymphocytes # (test code = Lymphocytes 1.5 1.0-5.5 N #) [facility] CampusBuwlsmxFOYDZZCMVR2702-93-07 10:22:00 Test Item Value Reference Range Interpretation Comments Monocytes # (test code 0.5 See_Comment N [Aut omated message] The = Monocytes #) system which generated this result tra nsmitted reference range : <=0.8. The reference r leo was not used to int erpret this result as normal/abnormal . [facility] CampusLgfgenlDGCBEFHSPS5566-70-71 10:22:00 Test Item Value Reference Range Interpretation Comments Basophils # (test code 0.0 See_Comment N [Aut omated message] The = Basophils #) system which generated this result tra nsmitted reference range : <=0.2. The reference r leo was not used to int erpret this result as normal/abnormal . [facility] CampusAfbudcqOKHGHEIDJM6188-28-28 10:22:00 Test Item Value Reference Range Interpretation Comments MPV (test code = MPV) 11.0 7.4-10.4 H [facility] CampusMgytzrbBCFCDXGZOB0617-51-82 10:22:00 Test Item Value Reference Range Interpretation Comments Platelet (test code = Platelet) 161 133-450 N [facility] CampusZxcgzqzPXYAPIXYYR5390-01-59 10:22:00 Test Item Value Reference Range Interpretation Comments MCH (test code = MCH) 29.6 pg 27.0-31.0 N [facility] CampusPbdxhtiFOPJAERRWF8293-17-70 10:22:00 Test Item Value Reference Range Interpretation Comments MCHC (test code = MCHC) 35.4 32.0-36.0 N [facility] CampusEsbwoxnZNOVGKEKJH7211-86-14 10:22:00 Test Item Value Reference Range Interpretation Comments RDW (test code = RDW) 14.1 11.5-14.5 N [facility] CampusZbcuxaqGRXALMWFGZ0541-20-98 10:22:00 Test Item Value Reference Range Interpretation Comments WBC (test code = WBC) 6.8 3.7-10.4 N [facility] CampusAwuucgsGDIVAIBEZT0504-86-57 10:22:00 Test Item Value Reference Range Interpretation Comments MCV (test code = MCV) 83.5 81.0-99.0 N [facility] CampusFekwtupWHVVUGTTNS8355-64-54 10:22:00 Test Item Value Reference Range Interpretation Comments RBC (test code = RBC) 4.44 4.20-5.40 N [facility] CampusUsoobhqUXALYLDXHB2249-76-65 10:22:00 Test Item Value Reference Range Interpretation Comments Hgb (test code = Hgb) 13.1 12.0-16.0 N [facility] CampusHebomvrBJEGXMPNJE5332-31-68 10:22:00 Test Item Value Reference Range Interpretation Comments Hct (test code = Hct) 37.1 36.0-48.0 N [facility]AzoxhriYVEDFCRGQ8222-66-97 10:22:00 Test Item Value Reference Range Interpretation Comments Phosphorus (test code = Phosphorus) 3.0 2.5-4.5 N [facility]SzhftzdHCMBQBYDF8034-73-35 10:22:00 Test Item Value Reference Range Interpretation Comments Magnesium Lvl (test code = Magnesium 1.8 1.8-2.4 N Lvl) [facility]manZkmrygqCNANYBHWQ2529-08-15 10:22:00 Test Item Value Reference Range Interpretation Comments Chloride Lvl (test code = Chloride Lvl) 107 95-109 N [facility]XsijxqlXNYGEUTER0091-45-00 10:22:00 Test Item Value Reference Range Interpretation Comments Potassium Lvl (test code = Potassium 3.0 3.5-5.1 A Lvl) [facility]QquuwwuYUQDKMQNO9423-16-38 10:22:00 Test Item Value Reference Range Interpretation Comments Sodium Lvl (test code = Sodium Lvl) 141 135-145 N [facility]VfebjjjZOMYDYNJG3873-27-70 10:22:00 Test Item Value Reference Range Interpretation Comments Creatinine Lvl (test code = Creatinine 0.6 0.5-1.4 N Lvl) [facility]manGnqzepePNBHPYZUT8075-15-15 10:22:00 Test Item Value Reference Range Interpretation Comments CO2 (test code = CO2) 23 24-32 L [facility]manZjijcyaUDXGUSXZC3227-04-68 10:22:00 Test Item Value Reference Range Interpretation Comments Calcium Lvl (test code = Calcium Lvl) 7.3 8.5-10.5 L [facility]manBrazjdsYYGBBHIBS5093-65-99 10:22:00 Test Item Value Reference Range Interpretation Comments Glucose Lvl (test code = Glucose Lvl) 136 [facility]EapqwccSYWFJOXDG7320-83-38 10:22:00 Test Item Value Reference Range Interpretation Comments AGAP (test code = AGAP) 14.0 10.0-20.0 N [facility]AbytugbSPLVWBGZM9521-72-75 10:22:00 Test Item Value Reference Range Interpretation Comments BUN (test code = BUN) 5 7-22 L [facility] HospitalSqgqpjzBORTKMAMSP2827-73-85 10:22:00 Test Item Value Reference Range Interpretation Comments Segs (test code = Segs) 69.6 45.0-75.0 N [facility] CampusPmzuiheDKKDAQTVJH3371-49-16 10:22:00 Test Item Value Reference Range Interpretation Comments Lymphocytes (test code = Lymphocytes) 21.5 20.0-40.0 N [facility] CampusFkuyjqtNJVNOWZMIY3097-36-92 10:22:00 Test Item Value Reference Range Interpretation Comments Monocytes (test code = Monocytes) 7.6 2.0-12.0 N [facility] CampusIwbihigEFYGDHOLQW1875-60-76 10:22:00 Test Item Value Reference Range Interpretation Comments Eosinophils (test code = 1.0 See_Comment N [A utomated message] The Eosinophils) system which ge nerated this result tra nsmitted reference range : <=4.0. The reference r leo was not used to int erpret this result as normal/abnormal . [facility] CampusGzvkhdjGYYXRWGWCH4498-93-31 10:22:00 Test Item Value Reference Range Interpretation Comments Basophils (test code = 0.3 See_Comment N [Aut omated message] The Basophils) system which ge nerated this result tra nsmitted reference range : <=1.0. The reference r leo was not used to int erpret this result as normal/abnormal . [facility] CampusXyjkbqmGPRFTXYDMG5545-41-67 10:22:00 Test Item Value Reference Range Interpretation Comments Segs-Bands # (test code = Segs-Bands #) 4.8 1.5-8.1 N [facility] CampusWqhkpsoNWKZFZRMQI1837-17-56 10:22:00 Test Item Value Reference Range Interpretation Comments Eosinophils # (test code 0.1 See_Comment N [A utomated message] The = Eosinophils #) system [facility] h generated this result tra nsmitted reference range : <=0.5. The reference r leo was not used to int erpret this result as normal/abnormal . [facility] CampusEkeejscVARHZCCQCW3442-60-90 10:22:00 Test Item Value Reference Range Interpretation Comments Lymphocytes # (test code = Lymphocytes 1.5 1.0-5.5 N #) [facility] CampusQtlgbwjEWPXHZCAMO5839-43-37 10:22:00 Test Item Value Reference Range Interpretation Comments Monocytes # (test code 0.5 See_Comment N [Aut omated message] The = Monocytes #) system which generated this result tra nsmitted reference range : <=0.8. The reference r leo was not used to int erpret this result as normal/abnormal . [facility] CampusUkjirffNIBPXDVKZI3246-96-77 10:22:00 Test Item Value Reference Range Interpretation Comments Basophils # (test code 0.0 See_Comment N [Aut omated message] The = Basophils #) system which generated this result tra nsmitted reference range : <=0.2. The reference r leo was not used to int erpret this result as normal/abnormal . [facility] CampusPetzwsdLNXSQTSKCO1019-08-07 10:22:00 Test Item Value Reference Range Interpretation Comments MPV (test code = MPV) 11.0 7.4-10.4 H [facility] CampusJxmjmiuQLQZCDWCIB7970-43-79 10:22:00 Test Item Value Reference Range Interpretation Comments Platelet (test code = Platelet) 161 133-450 N [facility] CampusOkphbnwYIITKBXOTM8333-73-10 10:22:00 Test Item Value Reference Range Interpretation Comments MCH (test code = MCH) 29.6 pg 27.0-31.0 N [facility] CampusLvnpsstOFVTZVEKDY2951-75-78 10:22:00 Test Item Value Reference Range Interpretation Comments MCHC (test code = MCHC) 35.4 32.0-36.0 N [facility] CampusHbogesjTCSYJKPYDC3013-16-64 10:22:00 Test Item Value Reference Range Interpretation Comments RDW (test code = RDW) 14.1 11.5-14.5 N [facility] CampusQdkchhzEYVRNNJSLS1314-44-90 10:22:00 Test Item Value Reference Range Interpretation Comments WBC (test code = WBC) 6.8 3.7-10.4 N [facility] CampusLuylgtjPBIHEVLSQD4188-48-37 10:22:00 Test Item Value Reference Range Interpretation Comments MCV (test code = MCV) 83.5 81.0-99.0 N [facility] CampusIkluxjqNWKZTLSLDZ6168-24-04 10:22:00 Test Item Value Reference Range Interpretation Comments RBC (test code = RBC) 4.44 4.20-5.40 N [facility] CampusRrslwjnVQOSWIFMLT8295-61-29 10:22:00 Test Item Value Reference Range Interpretation Comments Hgb (test code = Hgb) 13.1 12.0-16.0 N [facility] CampusVchxloeUSOHDESJVY3271-68-19 10:22:00 Test Item Value Reference Range Interpretation Comments Hct (test code = Hct) 37.1 36.0-48.0 N [facility]QsazvxjEHMHPUOPQ8063-47-66 10:22:00 Test Item Value Reference Range Interpretation Comments Phosphorus (test code = Phosphorus) 3.0 2.5-4.5 N [facility]manSlyonayGODCZCJEH4844-67-20 10:22:00 Test Item Value Reference Range Interpretation Comments Magnesium Lvl (test code = Magnesium 1.8 1.8-2.4 N Lvl) [facility]UjmahvtNTDHLYFMI5882-50-86 10:22:00 Test Item Value Reference Range Interpretation Comments Chloride Lvl (test code = Chloride Lvl) 107 95-109 N [facility]manCrhkoemYISZKJSKS9098-54-70 10:22:00 Test Item Value Reference Range Interpretation Comments Potassium Lvl (test code = Potassium 3.0 3.5-5.1 A Lvl) [facility]manGvacbmbTRACKMEDD0125-26-09 10:22:00 Test Item Value Reference Range Interpretation Comments Sodium Lvl (test code = Sodium Lvl) 141 135-145 N [facility]manDnjzuomSHRYUKQQZ1820-14-64 10:22:00 Test Item Value Reference Range Interpretation Comments Creatinine Lvl (test code = Creatinine 0.6 0.5-1.4 N Lvl) [facility]OiptdqqTKBZJMEVD2878-02-86 10:22:00 Test Item Value Reference Range Interpretation Comments CO2 (test code = CO2) 23 24-32 L [facility]PdfgfntRISZIFHSC8865-94-88 10:22:00 Test Item Value Reference Range Interpretation Comments Calcium Lvl (test code = Calcium Lvl) 7.3 8.5-10.5 L [facility]manQvyeeufOYHJORXXW0868-65-25 10:22:00 Test Item Value Reference Range Interpretation Comments Glucose Lvl (test code = Glucose Lvl) 136 [facility]manSttwpmfKDSPDQOOO2061-50-24 10:22:00 Test Item Value Reference Range Interpretation Comments AGAP (test code = AGAP) 14.0 10.0-20.0 N [facility]manLldfayxHRCLXMZCP5787-00-38 10:22:00 Test Item Value Reference Range Interpretation Comments BUN (test code = BUN) 5 7-22 L [facility] CampusHvpiylrVBACXGKWSD8884-71-33 10:22:00 Test Item Value Reference Range Interpretation Comments Segs (test code = Segs) 69.6 45.0-75.0 N [facility] CampusSqxufiiNUDDMWJALX1211-25-01 10:22:00 Test Item Value Reference Range Interpretation Comments Lymphocytes (test code = Lymphocytes) 21.5 20.0-40.0 N [facility] CampusBaushmqGEXIEAMWSZ9363-19-59 10:22:00 Test Item Value Reference Range Interpretation Comments Monocytes (test code = Monocytes) 7.6 2.0-12.0 N [facility] CampusWxjnsisCCHKQLNXAY7444-50-58 10:22:00 Test Item Value Reference Range Interpretation Comments Eosinophils (test code = 1.0 See_Comment N [A utomated message] The Eosinophils) system which ge nerated this result tra nsmitted reference range : <=4.0. The reference r leo was not used to int erpret this result as normal/abnormal . [facility] CampusLpdafgiCYCIKNUYGR1237-04-64 10:22:00 Test Item Value Reference Range Interpretation Comments Basophils (test code = 0.3 See_Comment N [Aut omated message] The Basophils) system which ge nerated this result tra nsmitted reference range : <=1.0. The reference r leo was not used to int erpret this result as normal/abnormal . [facility] CampusAnxohrvOHTWVPVRZU9814-59-04 10:22:00 Test Item Value Reference Range Interpretation Comments Segs-Bands # (test code = Segs-Bands #) 4.8 1.5-8.1 N [facility] CampusMxzqdaoVXVLYBUOPJ9712-59-48 10:22:00 Test Item Value Reference Range Interpretation Comments Eosinophils # (test code 0.1 See_Comment N [A utomated message] The = Eosinophils #) system [facility] h generated this result tra nsmitted reference range : <=0.5. The reference r leo was not used to int erpret this result as normal/abnormal . [facility] CampusQlbpiexOMMRBAUUJJ6824-04-47 10:22:00 Test Item Value Reference Range Interpretation Comments Lymphocytes # (test code = Lymphocytes 1.5 1.0-5.5 N #) [facility] CampusGthdgvjCUBFLNTQTY1255-27-15 10:22:00 Test Item Value Reference Range Interpretation Comments Monocytes # (test code 0.5 See_Comment N [Aut omated message] The = Monocytes #) system which generated this result tra nsmitted reference range : <=0.8. The reference r leo was not used to int erpret this result as normal/abnormal . [facility] CampusUwjdlvsURBNLPSUUG4777-60-39 10:22:00 Test Item Value Reference Range Interpretation Comments Basophils # (test code 0.0 See_Comment N [Aut omated message] The = Basophils #) system which generated this result tra nsmitted reference range : <=0.2. The reference r leo was not used to int erpret this result as normal/abnormal . [facility] CampusVqaixtyQTBMFKORSH9747-77-85 10:22:00 Test Item Value Reference Range Interpretation Comments MPV (test code = MPV) 11.0 7.4-10.4 H [facility] CampusLtjdhnxFRNUEYRLCG9049-99-24 10:22:00 Test Item Value Reference Range Interpretation Comments Platelet (test code = Platelet) 161 133-450 N [facility] CampusZpxebpfKXFLQGRSHU2590-98-15 10:22:00 Test Item Value Reference Range Interpretation Comments MCH (test code = MCH) 29.6 pg 27.0-31.0 N [facility] CampusGofsumyHTPZFQZSCH0116-42-07 10:22:00 Test Item Value Reference Range Interpretation Comments MCHC (test code = MCHC) 35.4 32.0-36.0 N [facility] CampusRbjyoyeOBNNDYUPVB3528-02-90 10:22:00 Test Item Value Reference Range Interpretation Comments RDW (test code = RDW) 14.1 11.5-14.5 N [facility] CampusUzvtvvyBSUHRBXDBR0598-05-72 10:22:00 Test Item Value Reference Range Interpretation Comments WBC (test code = WBC) 6.8 3.7-10.4 N [facility] CampusDviyqomBOIOWVGEWT0574-45-08 10:22:00 Test Item Value Reference Range Interpretation Comments MCV (test code = MCV) 83.5 81.0-99.0 N [facility] CampusKgkseiqZYAPRYJGCB8795-94-90 10:22:00 Test Item Value Reference Range Interpretation Comments RBC (test code = RBC) 4.44 4.20-5.40 N [facility] CampusKqmauqoXIQEYXJPSM3539-31-56 10:22:00 Test Item Value Reference Range Interpretation Comments Hgb (test code = Hgb) 13.1 12.0-16.0 N [facility] CampusSufspvbESSZLDTSHY9935-98-38 10:22:00 Test Item Value Reference Range Interpretation Comments Hct (test code = Hct) 37.1 36.0-48.0 N [facility]SizgxagRSHOZBMFB2269-75-19 10:22:00 Test Item Value Reference Range Interpretation Comments Phosphorus (test code = Phosphorus) 3.0 2.5-4.5 N [facility]manSphebxcGMXXUNBKL8714-70-63 10:22:00 Test Item Value Reference Range Interpretation Comments Magnesium Lvl (test code = Magnesium 1.8 1.8-2.4 N Lvl) [facility]manLuierxdBQXZQNYNR6753-02-67 10:22:00 Test Item Value Reference Range Interpretation Comments Chloride Lvl (test code = Chloride Lvl) 107 95-109 N [facility]manUpkyxllMGHPMVLIS7819-83-17 10:22:00 Test Item Value Reference Range Interpretation Comments Potassium Lvl (test code = Potassium 3.0 3.5-5.1 A Lvl) [facility]PgngcelPGNXZUUKZ4983-12-52 10:22:00 Test Item Value Reference Range Interpretation Comments Sodium Lvl (test code = Sodium Lvl) 141 135-145 N [facility]manYyewxrlFOFNUYRLE9861-90-65 10:22:00 Test Item Value Reference Range Interpretation Comments Creatinine Lvl (test code = Creatinine 0.6 0.5-1.4 N Lvl) [facility]manOzqdbpiSKCFODYPR2362-34-74 10:22:00 Test Item Value Reference Range Interpretation Comments CO2 (test code = CO2) 23 24-32 L [facility]manUnmlpuxEWXFASPBS2763-42-64 10:22:00 Test Item Value Reference Range Interpretation Comments Calcium Lvl (test code = Calcium Lvl) 7.3 8.5-10.5 L [facility]manUgdxkyeZPKKNNARM1613-43-25 10:22:00 Test Item Value Reference Range Interpretation Comments Glucose Lvl (test code = Glucose Lvl) 136 [facility]manGgwivynNJNDXAQLC4267-39-34 10:22:00 Test Item Value Reference Range Interpretation Comments AGAP (test code = AGAP) 14.0 10.0-20.0 N [facility]manQhbjxlsVYRUQIXMD1829-06-86 10:22:00 Test Item Value Reference Range Interpretation Comments BUN (test code = BUN) 5 7-22 L [facility] CampusDzodfakCRTTOHMSYT0588-84-59 10:22:00 Test Item Value Reference Range Interpretation Comments Segs (test code = Segs) 69.6 45.0-75.0 N [facility] CampusPbstylfLWBJGCGWBD0628-41-45 10:22:00 Test Item Value Reference Range Interpretation Comments Lymphocytes (test code = Lymphocytes) 21.5 20.0-40.0 N [facility] CampusDfnjpkuVQKWCHRAJZ5793-05-55 10:22:00 Test Item Value Reference Range Interpretation Comments Monocytes (test code = Monocytes) 7.6 2.0-12.0 N [facility] CampusHdpbzwvATMDKPJJSK8751-42-75 10:22:00 Test Item Value Reference Range Interpretation Comments Eosinophils (test code = 1.0 See_Comment N [A utomated message] The Eosinophils) system which ge nerated this result tra nsmitted reference range : <=4.0. The reference r leo was not used to int erpret this result as normal/abnormal . [facility] CampusYewwiirRCPDHAFEWF6052-79-56 10:22:00 Test Item Value Reference Range Interpretation Comments Basophils (test code = 0.3 See_Comment N [Aut omated message] The Basophils) system which ge nerated this result tra nsmitted reference range : <=1.0. The reference r leo was not used to int erpret this result as normal/abnormal . [facility] CampusQasbscrDWQLGGYEJT6462-00-77 10:22:00 Test Item Value Reference Range Interpretation Comments Segs-Bands # (test code = Segs-Bands #) 4.8 1.5-8.1 N [facility] CampusCpwwnqnHIYRNPCGXO2669-51-77 10:22:00 Test Item Value Reference Range Interpretation Comments Eosinophils # (test code 0.1 See_Comment N [A utomated message] The = Eosinophils #) system [facility] h generated this result tra nsmitted reference range : <=0.5. The reference r leo was not used to int erpret this result as normal/abnormal . [facility] CampusJhvhlxvLGLKXHPOVZ7249-87-72 10:22:00 Test Item Value Reference Range Interpretation Comments Lymphocytes # (test code = Lymphocytes 1.5 1.0-5.5 N #) [facility] CampusFzrrnlaUCCMNYGJXJ5170-20-83 10:22:00 Test Item Value Reference Range Interpretation Comments Monocytes # (test code 0.5 See_Comment N [Aut omated message] The = Monocytes #) system which generated this result tra nsmitted reference range : <=0.8. The reference r leo was not used to int erpret this result as normal/abnormal . [facility] CampusIoiivoeHHXNGKSRQK7234-00-96 10:22:00 Test Item Value Reference Range Interpretation Comments Basophils # (test code 0.0 See_Comment N [Aut omated message] The = Basophils #) system which generated this result tra nsmitted reference range : <=0.2. The reference r leo was not used to int erpret this result as normal/abnormal . [facility] CampusOowjceuZRBOSGKESM6964-49-25 10:22:00 Test Item Value Reference Range Interpretation Comments MPV (test code = MPV) 11.0 7.4-10.4 H [facility] CampusUurxiswIUWJUFJZFY8032-52-94 10:22:00 Test Item Value Reference Range Interpretation Comments Platelet (test code = Platelet) 161 133-450 N [facility] CampusMgcvkpzUJMOLGBAPX9957-97-51 10:22:00 Test Item Value Reference Range Interpretation Comments MCH (test code = MCH) 29.6 pg 27.0-31.0 N [facility] [facility]TmapeexXBNGSKLAQK0740-54-65 10:22:00 Test Item Value Reference Range Interpretation Comments MCHC (test code = MCHC) 35.4 32.0-36.0 N [facility] CampusFncxpvrVRXAIHVLTU9420-15-83 10:22:00 Test Item Value Reference Range Interpretation Comments RDW (test code = RDW) 14.1 11.5-14.5 N [facility] CampusMmhaotuUNYQQZAWZO7167-21-16 10:22:00 Test Item Value Reference Range Interpretation Comments WBC (test code = WBC) 6.8 3.7-10.4 N [facility] CampusVpwckepKPORDWQAWJ6813-32-05 10:22:00 Test Item Value Reference Range Interpretation Comments MCV (test code = MCV) 83.5 81.0-99.0 N [facility] CampusUqctxykGKYEJKDALF1861-27-42 10:22:00 Test Item Value Reference Range Interpretation Comments RBC (test code = RBC) 4.44 4.20-5.40 N [facility] CampusWcopdkqXQLUIRIKZZ1856-84-29 10:22:00 Test Item Value Reference Range Interpretation Comments Hgb (test code = Hgb) 13.1 12.0-16.0 N [facility] CampusQthghdoTZSMHOWHFR8140-02-24 10:22:00 Test Item Value Reference Range Interpretation Comments Hct (test code = Hct) 37.1 36.0-48.0 N [facility] GLUCOSE UYABZJZ0486-71-22 02:20:00 Test Item Value Reference Range Interpretation Comments Comment1 (test code = Comment1) Notify RN/ [facility] GLUCOSE JEATBKE8493-30-72 02:20:00 Test Item Value Reference Range Interpretation Comments Gluc POC Lifscn (test code = Gluc POC 332 65-110 H Lifscn) [facility] GLUCOSE [id number] 02:20:00 Test Item Value Reference Range Interpretation Comments Comment1 (test code = Comment1) Notify RN/ [facility] GLUCOSE RQEHHKE4301-19-83 02:20:00 Test Item Value Reference Range Interpretation Comments Gluc POC Lifscn (test code = Gluc POC 332 65-110 H Lifscn) [facility] GLUCOSE [id number] 02:20:00 Test Item Value Reference Range Interpretation Comments Comment1 (test code = Comment1) Notify RN/ [facility] GLUCOSE MCBEJHF1068-50-47 02:20:00 Test Item Value Reference Range Interpretation Comments Gluc POC Lifscn (test code = Gluc POC 332 65-110 H Lifscn) [facility] GLUCOSE [id number] 02:20:00 Test Item Value Reference Range Interpretation Comments Comment1 (test code = Comment1) Notify RN/ [facility] GLUCOSE HQTZPXP1040-05-10 02:20:00 Test Item Value Reference Range Interpretation Comments Gluc POC Lifscn (test code = Gluc POC 332 65-110 H Lifscn) [facility] GLUCOSE [id number] 02:20:00 Test Item Value Reference Range Interpretation Comments Comment1 (test code = Comment1) Notify RN/ [facility] GLUCOSE [id number] 02:20:00 Test Item Value Reference Range Interpretation Comments Gluc POC Lifscn (test code = Gluc POC 332 65-110 H Lif[facility]) [facility]fe[facility]CQIXXNICH3867-[facility]-57 09:47:00 Test Item Value Reference Range Interpretation Comments Phosphorus (test code = Phosphorus) 2.5 2.5-4.5 N [facility]VsfwkjtDYMCJUFWU2963-77-77 09:47:00 Test Item Value Reference Range Interpretation Comments Glucose Lvl (test code = Glucose Lvl) 201 [facility]BfsbicgNKNJWICKK3199-16-73 09:47:00 Test Item Value Reference Range Interpretation Comments BUN (test code = BUN) 7 7-22 N [facility]LwyeexnEMFOARICJ2657-97-15 09:47:00 Test Item Value Reference Range Interpretation Comments CO2 (test code = CO2) 19 24-32 L [facility]WaezcgzAOWJAICTZ9113-91-40 09:47:00 Test Item Value Reference Range Interpretation Comments Creatinine Lvl (test code = Creatinine 0.3 0.5-1.4 L Lvl) [facility]UbzgcypZRPONHSPV3076-64-59 09:47:00 Test Item Value Reference Range Interpretation Comments Sodium Lvl (test code = Sodium Lvl) 137 135-145 N [facility]UxcxvmfBRWMXOSVS1115-55-48 09:47:00 Test Item Value Reference Range Interpretation Comments Chloride Lvl (test code = Chloride Lvl) 103 95-109 N [facility]MknlyudALNHVTAAP5261-33-05 09:47:00 Test Item Value Reference Range Interpretation Comments Potassium Lvl (test code = Potassium 3.6 3.5-5.1 N Lvl) [facility]YvxiwrwVVLTKGTKC9362-15-80 09:47:00 Test Item Value Reference Range Interpretation Comments Calcium Lvl (test code = Calcium Lvl) 7.9 8.5-10.5 L [facility]manTdsvennNEOFKQMHE3741-51-68 09:47:00 Test Item Value Reference Range Interpretation Comments AGAP (test code = AGAP) 18.6 10.0-20.0 N [facility]manVivertzKYQEFMTFI4582-69-31 09:47:00 Test Item Value Reference Range Interpretation Comments Magnesium Lvl (test code = Magnesium 1.6 1.8-2.4 L Lvl) [facility] CampusDuqzsuaIYQJFXDNJW6872-07-78 09:47:00 Test Item Value Reference Range Interpretation Comments Basophils # (test code 0.0 See_Comment N [Aut omated message] The = Basophils #) system which generated this result tra nsmitted reference range : <=0.2. The reference r leo was not used to int erpret this result as normal/abnormal . [facility] CampusBxtrrheSCAXEGVIHZ1636-42-83 09:47:00 Test Item Value Reference Range Interpretation Comments Eosinophils (test code = 0.4 See_Comment N [A utomated message] The Eosinophils) system which ge nerated this result tra nsmitted reference range : <=4.0. The reference r leo was not used to int erpret this result as normal/abnormal . [facility] CampusVqjmgioRWBZDNEYFA9897-20-12 09:47:00 Test Item Value Reference Range Interpretation Comments Basophils (test code = 0.5 See_Comment N [Aut omated message] The Basophils) system which ge nerated this result tra nsmitted reference range : <=1.0. The reference r leo was not used to int erpret this result as normal/abnormal . [facility] CampusLldjqftZLBSNORFTI8341-19-09 09:47:00 Test Item Value Reference Range Interpretation Comments Segs-Bands # (test code = Segs-Bands #) 5.9 1.5-8.1 N [facility] CampusFkhmarzCATWGKGXCP3478-46-63 09:47:00 Test Item Value Reference Range Interpretation Comments Lymphocytes # (test code = Lymphocytes 1.2 1.0-5.5 N #) [facility] CampusIelfpsqYDXJAJZEIU3017-46-46 09:47:00 Test Item Value Reference Range Interpretation Comments Monocytes # (test code 0.5 See_Comment N [Aut omated message] The = Monocytes #) system which generated this result tra nsmitted reference range : <=0.8. The reference r leo was not used to int erpret this result as normal/abnormal . [facility] CampusZlztjscZLGCUEGZEK7434-17-67 09:47:00 Test Item Value Reference Range Interpretation Comments Eosinophils # (test code 0.0 See_Comment N [A utomated message] The = Eosinophils #) system whic h generated this result tra nsmitted reference range : <=0.5. The reference r leo was not used to int erpret this result as normal/abnormal . [facility] CampusCsictfnPYODDBEMEI5188-37-74 09:47:00 Test Item Value Reference Range Interpretation Comments Segs (test code = Segs) 76.9 45.0-75.0 H [facility] CampusPsdwnmwEFKFQBQAXV9058-54-38 09:47:00 Test Item Value Reference Range Interpretation Comments Lymphocytes (test code = Lymphocytes) 15.9 20.0-40.0 L [facility] CampusWdjniisSTWXOGFFML5781-15-47 09:47:00 Test Item Value Reference Range Interpretation Comments Monocytes (test code = Monocytes) 6.3 2.0-12.0 N [facility] CampusNtqbgveCFFDOPFDLA9945-84-88 09:47:00 Test Item Value Reference Range Interpretation Comments MCV (test code = MCV) 82.8 81.0-99.0 N [facility] CampusTlnfspiWVSIPVTXNV6356-96-73 09:47:00 Test Item Value Reference Range Interpretation Comments Hct (test code = Hct) 39.7 36.0-48.0 N [facility] CampusQebspnpUMOCSXXZSS6862-82-90 09:47:00 Test Item Value Reference Range Interpretation Comments MCH (test code = MCH) 29.1 pg 27.0-31.0 N [facility] CampusPchkibwPEUIXNXNDK8447-61-17 09:47:00 Test Item Value Reference Range Interpretation Comments Hgb (test code = Hgb) 14.0 12.0-16.0 N [facility] CampusLwhtesrAOITGPCOYZ5480-67-13 09:47:00 Test Item Value Reference Range Interpretation Comments MCHC (test code = MCHC) 35.2 32.0-36.0 N [facility] CampusUrfhtbeCKLGOPPAGN8474-65-19 09:47:00 Test Item Value Reference Range Interpretation Comments RDW (test code = RDW) 13.9 11.5-14.5 N [facility] CampusOsnidocESTHGMUUUZ8447-02-36 09:47:00 Test Item Value Reference Range Interpretation Comments Platelet (test code = Platelet) 160 133-450 N [facility] CampusOlbkxsnYUEVZEMYGA4548-13-55 09:47:00 Test Item Value Reference Range Interpretation Comments MPV (test code = MPV) 11.9 7.4-10.4 H [facility] CampusQdmcxelATFYJVGLNZ7674-38-09 09:47:00 Test Item Value Reference Range Interpretation Comments WBC (test code = WBC) 7.7 3.7-10.4 N [facility] CampusRkzzbuhSDLPPIECCN2821-57-42 09:47:00 Test Item Value Reference Range Interpretation Comments RBC (test code = RBC) 4.80 4.20-5.40 N [facility]XehxopuXBMNXEZKT6246-31-18 09:47:00 Test Item Value Reference Range Interpretation Comments Phosphorus (test code = Phosphorus) 2.5 2.5-4.5 N [facility]manFuwjieaOOLYTZAVF1653-93-62 09:47:00 Test Item Value Reference Range Interpretation Comments Glucose Lvl (test code = Glucose Lvl) 201 [facility]manSyyqffnDGIWIFMAL3858-08-81 09:47:00 Test Item Value Reference Range Interpretation Comments BUN (test code = BUN) 7 7-22 N [facility]WnysnywDXNCVIZIS7930-07-16 09:47:00 Test Item Value Reference Range Interpretation Comments CO2 (test code = CO2) 19 24-32 L [facility]manHaytcmfWXUQNCAVD1294-93-56 09:47:00 Test Item Value Reference Range Interpretation Comments Creatinine Lvl (test code = Creatinine 0.3 0.5-1.4 L Lvl) [facility]BgqhsmzISMXOCBLI7708-40-02 09:47:00 Test Item Value Reference Range Interpretation Comments Sodium Lvl (test code = Sodium Lvl) 137 135-145 N [facility]manDyckakyUKVANGVQB8351-60-00 09:47:00 Test Item Value Reference Range Interpretation Comments Chloride Lvl (test code = Chloride Lvl) 103 95-109 N [facility]PsjmmzpBOCJHWFOS2795-50-47 09:47:00 Test Item Value Reference Range Interpretation Comments Potassium Lvl (test code = Potassium 3.6 3.5-5.1 N Lvl) [facility]VcghxkoQBOPMDRBJ5650-27-20 09:47:00 Test Item Value Reference Range Interpretation Comments Calcium Lvl (test code = Calcium Lvl) 7.9 8.5-10.5 L [facility]UjxfjqqYDTIBDNXK3623-45-72 09:47:00 Test Item Value Reference Range Interpretation Comments AGAP (test code = AGAP) 18.6 10.0-20.0 N [facility]manSlcadzjCYZXLKAZY4023-10-31 09:47:00 Test Item Value Reference Range Interpretation Comments Magnesium Lvl (test code = Magnesium 1.6 1.8-2.4 L Lvl) [facility] CampusAqbwwqwTGWWXRHEKX1141-77-97 09:47:00 Test Item Value Reference Range Interpretation Comments Basophils # (test code 0.0 See_Comment N [Aut omated message] The = Basophils #) system which generated this result tra nsmitted reference range : <=0.2. The reference r leo was not used to int erpret this result as normal/abnormal . [facility] CampusPhjapzrKMUNGAWIZX3145-38-45 09:47:00 Test Item Value Reference Range Interpretation Comments Eosinophils (test code = 0.4 See_Comment N [A utomated message] The Eosinophils) system which ge nerated this result tra nsmitted reference range : <=4.0. The reference r leo was not used to int erpret this result as normal/abnormal . [facility] CampusSoeyuxyUSTRFVMUCM8761-66-76 09:47:00 Test Item Value Reference Range Interpretation Comments Basophils (test code = 0.5 See_Comment N [Aut omated message] The Basophils) system which ge nerated this result tra nsmitted reference range : <=1.0. The reference r leo was not used to int erpret this result as normal/abnormal . [facility] CampusSvxsxcrPPAWXLAGMS8185-55-60 09:47:00 Test Item Value Reference Range Interpretation Comments Segs-Bands # (test code = Segs-Bands #) 5.9 1.5-8.1 N [facility] CampusKadiliiLTKZFOSVOU7132-77-07 09:47:00 Test Item Value Reference Range Interpretation Comments Lymphocytes # (test code = Lymphocytes 1.2 1.0-5.5 N #) [facility] CampusPingezcQOPASIKDAY2122-79-66 09:47:00 Test Item Value Reference Range Interpretation Comments Monocytes # (test code 0.5 See_Comment N [Aut omated message] The = Monocytes #) system which generated this result tra nsmitted reference range : <=0.8. The reference r leo was not used to int erpret this result as normal/abnormal . [facility] CampusBgubexgRMWYNWOWCZ0153-07-52 09:47:00 Test Item Value Reference Range Interpretation Comments Eosinophils # (test code 0.0 See_Comment N [A utomated message] The = Eosinophils #) system whic h generated this result tra nsmitted reference range : <=0.5. The reference r leo was not used to int erpret this result as normal/abnormal . [facility] CampusLeuemvdVRMHOFRBOY1977-58-30 09:47:00 Test Item Value Reference Range Interpretation Comments Segs (test code = Segs) 76.9 45.0-75.0 H [facility] CampusGbdxxshBLKTZBUGRU0272-32-55 09:47:00 Test Item Value Reference Range Interpretation Comments Lymphocytes (test code = Lymphocytes) 15.9 20.0-40.0 L [facility] CampusMbzsibjTQGKZFZHVT5560-77-39 09:47:00 Test Item Value Reference Range Interpretation Comments Monocytes (test code = Monocytes) 6.3 2.0-12.0 N [facility] CampusOdoldndMGKVOTHHZU7802-36-04 09:47:00 Test Item Value Reference Range Interpretation Comments MCV (test code = MCV) 82.8 81.0-99.0 N [facility] CampusOpwazgyKVAQOIRFEI0335-05-87 09:47:00 Test Item Value Reference Range Interpretation Comments Hct (test code = Hct) 39.7 36.0-48.0 N [facility] CampusMwdezxuYATJPVVLTA2334-00-49 09:47:00 Test Item Value Reference Range Interpretation Comments MCH (test code = MCH) 29.1 pg 27.0-31.0 N [facility] CampusGnchyskSPDPAEOGVF9430-62-89 09:47:00 Test Item Value Reference Range Interpretation Comments Hgb (test code = Hgb) 14.0 12.0-16.0 N [facility] CampusQgugxsgPEXSRPMPME9323-14-26 09:47:00 Test Item Value Reference Range Interpretation Comments MCHC (test code = MCHC) 35.2 32.0-36.0 N [facility] CampusFpdjeedNBRGUMYLTP7630-00-26 09:47:00 Test Item Value Reference Range Interpretation Comments RDW (test code = RDW) 13.9 11.5-14.5 N [facility] CampusGunjnyzDFRAHRLJFS1006-10-77 09:47:00 Test Item Value Reference Range Interpretation Comments Platelet (test code = Platelet) 160 133-450 N [facility] CampusTqqguddVEGUWTMUIH6835-93-46 09:47:00 Test Item Value Reference Range Interpretation Comments MPV (test code = MPV) 11.9 7.4-10.4 H [facility] CampusXhxhvkiNLHBDXUGUP0632-45-64 09:47:00 Test Item Value Reference Range Interpretation Comments WBC (test code = WBC) 7.7 3.7-10.4 N [facility] CampusGemclwlKPKCZEUIPI2687-67-24 09:47:00 Test Item Value Reference Range Interpretation Comments RBC (test code = RBC) 4.80 4.20-5.40 N [facility]BcgwcorJDKVNDOTE9244-93-68 09:47:00 Test Item Value Reference Range Interpretation Comments Phosphorus (test code = Phosphorus) 2.5 2.5-4.5 N [facility]HtdlvduLGCDNBHLC0335-86-74 09:47:00 Test Item Value Reference Range Interpretation Comments Glucose Lvl (test code = Glucose Lvl) 201 [facility]MlqyiijBUYTIXAFI8748-95-68 09:47:00 Test Item Value Reference Range Interpretation Comments BUN (test code = BUN) 7 7-22 N [facility]manBkxiaouTLDKLIXWE5936-41-05 09:47:00 Test Item Value Reference Range Interpretation Comments CO2 (test code = CO2) 19 24-32 L [facility]TpspcrnMELUQIYCY5291-89-40 09:47:00 Test Item Value Reference Range Interpretation Comments Creatinine Lvl (test code = Creatinine 0.3 0.5-1.4 L Lvl) [facility]manLmtelioXUUJNVZFL1870-55-23 09:47:00 Test Item Value Reference Range Interpretation Comments Sodium Lvl (test code = Sodium Lvl) 137 135-145 N [facility]manGhvzfjuBDIALORII6303-97-59 09:47:00 Test Item Value Reference Range Interpretation Comments Chloride Lvl (test code = Chloride Lvl) 103 95-109 N [facility]manZmlkhcwSVSGHWNIP7174-17-22 09:47:00 Test Item Value Reference Range Interpretation Comments Potassium Lvl (test code = Potassium 3.6 3.5-5.1 N Lvl) [facility]manKawaychWSQCVCEKR7551-30-06 09:47:00 Test Item Value Reference Range Interpretation Comments Calcium Lvl (test code = Calcium Lvl) 7.9 8.5-10.5 L [facility]manIngeaqyUZLTDRWZN1991-58-45 09:47:00 Test Item Value Reference Range Interpretation Comments AGAP (test code = AGAP) 18.6 10.0-20.0 N [facility]manVpzhesoSPROBLSCO6208-16-93 09:47:00 Test Item Value Reference Range Interpretation Comments Magnesium Lvl (test code = Magnesium 1.6 1.8-2.4 L Lvl) [facility] CampusLjfuwezPBMOFUKXYK4001-36-79 09:47:00 Test Item Value Reference Range Interpretation Comments Basophils # (test code 0.0 See_Comment N [Aut omated message] The = Basophils #) system which generated this result tra nsmitted reference range : <=0.2. The reference r leo was not used to int erpret this result as normal/abnormal . [facility] CampusUyprybbQVMSJOTOJM2074-78-08 09:47:00 Test Item Value Reference Range Interpretation Comments Eosinophils (test code = 0.4 See_Comment N [A utomated message] The Eosinophils) system which ge nerated this result tra nsmitted reference range : <=4.0. The reference r leo was not used to int erpret this result as normal/abnormal . [facility] CampusLzugtxeNXGFPVEZGB2583-33-15 09:47:00 Test Item Value Reference Range Interpretation Comments Basophils (test code = 0.5 See_Comment N [Aut omated message] The Basophils) system which ge nerated this result tra nsmitted reference range : <=1.0. The reference r leo was not used to int erpret this result as normal/abnormal . [facility] CampusTfchjqjFGRVPZMBAJ4375-92-77 09:47:00 Test Item Value Reference Range Interpretation Comments Segs-Bands # (test code = Segs-Bands #) 5.9 1.5-8.1 N [facility] CampusWnvhrklFVULXCIICU5811-30-01 09:47:00 Test Item Value Reference Range Interpretation Comments Lymphocytes # (test code = Lymphocytes 1.2 1.0-5.5 N #) [facility] CampusGdgptbqQSIJHBJHXT7184-69-99 09:47:00 Test Item Value Reference Range Interpretation Comments Monocytes # (test code 0.5 See_Comment N [Aut omated message] The = Monocytes #) system which generated this result tra nsmitted reference range : <=0.8. The reference r leo was not used to int erpret this result as normal/abnormal . [facility] CampusJggdvryPVEBUGCJBN0732-90-21 09:47:00 Test Item Value Reference Range Interpretation Comments Eosinophils # (test code 0.0 See_Comment N [A utomated message] The = Eosinophils #) system whic h generated this result tra nsmitted reference range : <=0.5. The reference r leo was not used to int erpret this result as normal/abnormal . [facility] CampusAjqcoweLFXVDMKXIY1882-19-36 09:47:00 Test Item Value Reference Range Interpretation Comments Segs (test code = Segs) 76.9 45.0-75.0 H [facility] CampusWsuymxpFBRTZBGSGR1795-10-86 09:47:00 Test Item Value Reference Range Interpretation Comments Lymphocytes (test code = Lymphocytes) 15.9 20.0-40.0 L [facility] CampusSqjynvsZYKHRGHSYY3608-77-78 09:47:00 Test Item Value Reference Range Interpretation Comments Monocytes (test code = Monocytes) 6.3 2.0-12.0 N [facility] CampusYrnpqkeQSPSMRGQSR7522-82-10 09:47:00 Test Item Value Reference Range Interpretation Comments MCV (test code = MCV) 82.8 81.0-99.0 N [facility] CampusPgkyeckMPWGDBODVM0622-58-36 09:47:00 Test Item Value Reference Range Interpretation Comments Hct (test code = Hct) 39.7 36.0-48.0 N [facility] CampusVxpwewjEQOTBZPJBG0383-80-16 09:47:00 Test Item Value Reference Range Interpretation Comments MCH (test code = MCH) 29.1 pg 27.0-31.0 N [facility] CampusJzlrogfOTCXTAKVUK8081-42-67 09:47:00 Test Item Value Reference Range Interpretation Comments Hgb (test code = Hgb) 14.0 12.0-16.0 N [facility] CampusDhfttovJGGIQIKMKH2783-44-47 09:47:00 Test Item Value Reference Range Interpretation Comments MCHC (test code = MCHC) 35.2 32.0-36.0 N [facility] CampusXpvxjeaDPEZIINQRW3089-37-08 09:47:00 Test Item Value Reference Range Interpretation Comments RDW (test code = RDW) 13.9 11.5-14.5 N [facility] CampusDnuuqyvVJRWKIRNQE1849-30-33 09:47:00 Test Item Value Reference Range Interpretation Comments Platelet (test code = Platelet) 160 133-450 N [facility] CampusLrrueldXFDBLVEBTS2667-75-30 09:47:00 Test Item Value Reference Range Interpretation Comments MPV (test code = MPV) 11.9 7.4-10.4 H [facility] CampusIpivczvLCCMDLPOMM5570-40-06 09:47:00 Test Item Value Reference Range Interpretation Comments WBC (test code = WBC) 7.7 3.7-10.4 N [facility] CampusOvrljcsGZQLGFOMUH3264-92-87 09:47:00 Test Item Value Reference Range Interpretation Comments RBC (test code = RBC) 4.80 4.20-5.40 N [facility]MilgnhaXTWQTXSTL8829-80-80 09:47:00 Test Item Value Reference Range Interpretation Comments Phosphorus (test code = Phosphorus) 2.5 2.5-4.5 N [facility]GwuqjrlAEWKWNXBI2062-53-76 09:47:00 Test Item Value Reference Range Interpretation Comments Glucose Lvl (test code = Glucose Lvl) 201 [facility]manAvtmyaxDAIBWNJSE6420-59-40 09:47:00 Test Item Value Reference Range Interpretation Comments BUN (test code = BUN) 7 7-22 N [facility]manBjtdzkpDGGBGWIVU8784-71-59 09:47:00 Test Item Value Reference Range Interpretation Comments CO2 (test code = CO2) 19 24-32 L [facility]manVoidpnjGVKMEKYRC1555-39-76 09:47:00 Test Item Value Reference Range Interpretation Comments Creatinine Lvl (test code = Creatinine 0.3 0.5-1.4 L Lvl) [facility]manYujchdfODQHHMDIF7202-01-39 09:47:00 Test Item Value Reference Range Interpretation Comments Sodium Lvl (test code = Sodium Lvl) 137 135-145 N [facility]VjrzcjtXHPKFJTZC0535-29-92 09:47:00 Test Item Value Reference Range Interpretation Comments Chloride Lvl (test code = Chloride Lvl) 103 95-109 N [facility]manNundjbrSBAYQYQNN6735-61-73 09:47:00 Test Item Value Reference Range Interpretation Comments Potassium Lvl (test code = Potassium 3.6 3.5-5.1 N Lvl) [facility]manBfdvyzwHCEAZKXET8494-47-65 09:47:00 Test Item Value Reference Range Interpretation Comments Calcium Lvl (test code = Calcium Lvl) 7.9 8.5-10.5 L [facility]manGkwjahsVMBQXQHTK5209-26-48 09:47:00 Test Item Value Reference Range Interpretation Comments AGAP (test code = AGAP) 18.6 10.0-20.0 N [facility]manTpostkeXNKXLCCJR5917-15-99 09:47:00 Test Item Value Reference Range Interpretation Comments Magnesium Lvl (test code = Magnesium 1.6 1.8-2.4 L Lvl) [facility] CampusSpcykznTRJHDUSWVG9012-83-00 09:47:00 Test Item Value Reference Range Interpretation Comments Basophils # (test code 0.0 See_Comment N [Aut omated message] The = Basophils #) system which generated this result tra nsmitted reference range : <=0.2. The reference r leo was not used to int erpret this result as normal/abnormal . [facility] CampusAtlwfzfYXODBQKEFO5927-74-04 09:47:00 Test Item Value Reference Range Interpretation Comments Eosinophils (test code = 0.4 See_Comment N [A utomated message] The Eosinophils) system which ge nerated this result tra nsmitted reference range : <=4.0. The reference r leo was not used to int erpret this result as normal/abnormal . [facility]QobeygrHIPXLHZVNU1626-34-21 09:47:00 Test Item Value Reference Range Interpretation Comments Basophils (test code = 0.5 See_Comment N [Aut omated message] The Basophils) system which ge nerated this result tra nsmitted reference range : <=1.0. The reference r leo was not used to int erpret this result as normal/abnormal . [facility] CampusIvxuxtdJPSFMNJIBY5137-99-32 09:47:00 Test Item Value Reference Range Interpretation Comments Segs-Bands # (test code = Segs-Bands #) 5.9 1.5-8.1 N [facility] CampusXwyeltmHJRACHOMIP2716-73-03 09:47:00 Test Item Value Reference Range Interpretation Comments Lymphocytes # (test code = Lymphocytes 1.2 1.0-5.5 N #) [facility] CampusXvjknicHUXWJFHVYS0557-70-80 09:47:00 Test Item Value Reference Range Interpretation Comments Monocytes # (test code 0.5 See_Comment N [Aut omated message] The = Monocytes #) system which generated this result tra nsmitted reference range : <=0.8. The reference r leo was not used to int erpret this result as normal/abnormal . [facility] CampusZwhsqegLMLDAUNBFR5334-31-06 09:47:00 Test Item Value Reference Range Interpretation Comments Eosinophils # (test code 0.0 See_Comment N [A utomated message] The = Eosinophils #) system whic h generated this result tra nsmitted reference range : <=0.5. The reference r leo was not used to int erpret this result as normal/abnormal . [facility] CampusSywnfsbXWORILLVZZ5602-61-65 09:47:00 Test Item Value Reference Range Interpretation Comments Segs (test code = Segs) 76.9 45.0-75.0 H [facility] CampusWjnlgekIJWNRCOELV6193-30-98 09:47:00 Test Item Value Reference Range Interpretation Comments Lymphocytes (test code = Lymphocytes) 15.9 20.0-40.0 L [facility] CampusOrmzgrsWXPZOHEEMB4341-05-50 09:47:00 Test Item Value Reference Range Interpretation Comments Monocytes (test code = Monocytes) 6.3 2.0-12.0 N [facility] CampusJodcbuxATFDFFVRRO1509-16-09 09:47:00 Test Item Value Reference Range Interpretation Comments MCV (test code = MCV) 82.8 81.0-99.0 N [facility] CampusTxtsqxvYNSEAHKQLS2205-82-58 09:47:00 Test Item Value Reference Range Interpretation Comments Hct (test code = Hct) 39.7 36.0-48.0 N [facility] CampusBmhfhawCZFSHXZBWD0129-07-44 09:47:00 Test Item Value Reference Range Interpretation Comments MCH (test code = MCH) 29.1 pg 27.0-31.0 N [facility] CampusZaqhrpfIDBFYIXWNP0798-44-45 09:47:00 Test Item Value Reference Range Interpretation Comments Hgb (test code = Hgb) 14.0 12.0-16.0 N [facility] CampusSkyidxbYJDQDJVNBO8884-45-02 09:47:00 Test Item Value Reference Range Interpretation Comments MCHC (test code = MCHC) 35.2 32.0-36.0 N [facility] CampusRdyankeTNQVRALTFX4904-58-36 09:47:00 Test Item Value Reference Range Interpretation Comments RDW (test code = RDW) 13.9 11.5-14.5 N [facility] CampusIrdzzcqRAWOTAMFLW3520-60-30 09:47:00 Test Item Value Reference Range Interpretation Comments Platelet (test code = Platelet) 160 133-450 N [facility] CampusTntuhqvFMCKJQKCZL5286-97-82 09:47:00 Test Item Value Reference Range Interpretation Comments MPV (test code = MPV) 11.9 7.4-10.4 H [facility] CampusAvuiazmBWLZLQGRYR9331-92-09 09:47:00 Test Item Value Reference Range Interpretation Comments WBC (test code = WBC) 7.7 3.7-10.4 N [facility] CampusQnbvrmqMRAWVCWTVE8199-72-45 09:47:00 Test Item Value Reference Range Interpretation Comments RBC (test code = RBC) 4.80 4.20-5.40 N [facility]UsppbweLXEROBGTA5854-29-86 09:47:00 Test Item Value Reference Range Interpretation Comments Phosphorus (test code = Phosphorus) 2.5 2.5-4.5 N [facility]OmbftmnPPAQPXBAY1990-12-15 09:47:00 Test Item Value Reference Range Interpretation Comments Glucose Lvl (test code = Glucose Lvl) 201 [facility]TktpkjeZCJYBWHIJ5025-82-28 09:47:00 Test Item Value Reference Range Interpretation Comments BUN (test code = BUN) 7 7-22 N [facility]EpimzvxYTFTNEXQU8783-59-09 09:47:00 Test Item Value Reference Range Interpretation Comments CO2 (test code = CO2) 19 24-32 L [facility]manLrfzmibNWBDGHWUG5448-45-10 09:47:00 Test Item Value Reference Range Interpretation Comments Creatinine Lvl (test code = Creatinine 0.3 0.5-1.4 L Lvl) [facility]manVjcjueuDWPVNKRLN2890-20-07 09:47:00 Test Item Value Reference Range Interpretation Comments Sodium Lvl (test code = Sodium Lvl) 137 135-145 N [facility]manSnvnhktTPYYLXVIL3392-72-99 09:47:00 Test Item Value Reference Range Interpretation Comments Chloride Lvl (test code = Chloride Lvl) 103 95-109 N [facility]manSbsxtuhTTXTUGUIP9316-33-16 09:47:00 Test Item Value Reference Range Interpretation Comments Potassium Lvl (test code = Potassium 3.6 3.5-5.1 N Lvl) [facility]manGoycllfJUWEAUMEG6882-43-42 09:47:00 Test Item Value Reference Range Interpretation Comments Calcium Lvl (test code = Calcium Lvl) 7.9 8.5-10.5 L [facility]manWpwqrchQROLAKOOL6588-43-21 09:47:00 Test Item Value Reference Range Interpretation Comments AGAP (test code = AGAP) 18.6 10.0-20.0 N [facility]SyuuznsUWFMXRATK1474-89-77 09:47:00 Test Item Value Reference Range Interpretation Comments Magnesium Lvl (test code = Magnesium 1.6 1.8-2.4 L Lvl) [facility] CampusSagsziaZXPSZCPZAJ8716-08-54 09:47:00 Test Item Value Reference Range Interpretation Comments Basophils # (test code 0.0 See_Comment N [Aut omated message] The = Basophils #) system which generated this result tra nsmitted reference range : <=0.2. The reference r leo was not used to int erpret this result as normal/abnormal . [facility] CampusTgvxxoxMWIBOFNRXX7165-28-77 09:47:00 Test Item Value Reference Range Interpretation Comments Eosinophils (test code = 0.4 See_Comment N [A utomated message] The Eosinophils) system which ge nerated this result tra nsmitted reference range : <=4.0. The reference r leo was not used to int erpret this result as normal/abnormal . [facility] CampusFjblkghAUBYKZMDZR5938-20-76 09:47:00 Test Item Value Reference Range Interpretation Comments Basophils (test code = 0.5 See_Comment N [Aut omated message] The Basophils) system which ge nerated this result tra nsmitted reference range : <=1.0. The reference r leo was not used to int erpret this result as normal/abnormal . [facility] CampusTdtpptuWUYZNYSUIF2622-72-31 09:47:00 Test Item Value Reference Range Interpretation Comments Segs-Bands # (test code = Segs-Bands #) 5.9 1.5-8.1 N [facility] CampusQbhdubwTINQYPJSUZ1104-52-59 09:47:00 Test Item Value Reference Range Interpretation Comments Lymphocytes # (test code = Lymphocytes 1.2 1.0-5.5 N #) [facility] CampusSrtrzorHKRLASRKGV2637-04-30 09:47:00 Test Item Value Reference Range Interpretation Comments Monocytes # (test code 0.5 See_Comment N [Aut omated message] The = Monocytes #) system which generated this result tra nsmitted reference range : <=0.8. The reference r leo was not used to int erpret this result as normal/abnormal . [facility] CampusCzkgrprCSEXCPPOUC6058-94-81 09:47:00 Test Item Value Reference Range Interpretation Comments Eosinophils # (test code 0.0 See_Comment N [A utomated message] The = Eosinophils #) system whic h generated this result tra nsmitted reference range : <=0.5. The reference r leo was not used to int erpret this result as normal/abnormal . [facility] CampusQgbrdfhHKTRXOEVJG5543-31-10 09:47:00 Test Item Value Reference Range Interpretation Comments Segs (test code = Segs) 76.9 45.0-75.0 H [facility] CampusCstgcqyYWOZEHFGYW3905-65-07 09:47:00 Test Item Value Reference Range Interpretation Comments Lymphocytes (test code = Lymphocytes) 15.9 20.0-40.0 L [facility] CampusKcsnhgoTRJKZDDNAQ7754-75-30 09:47:00 Test Item Value Reference Range Interpretation Comments Monocytes (test code = Monocytes) 6.3 2.0-12.0 N [facility] CampusEapefhrOGEVVDJPRD4960-12-59 09:47:00 Test Item Value Reference Range Interpretation Comments MCV (test code = MCV) 82.8 81.0-99.0 N [facility] CampusXafuildYWSDPGNHTT2906-64-87 09:47:00 Test Item Value Reference Range Interpretation Comments Hct (test code = Hct) 39.7 36.0-48.0 N [facility] CampusFuljuvcJTEUDHPUHX7551-50-52 09:47:00 Test Item Value Reference Range Interpretation Comments MCH (test code = MCH) 29.1 pg 27.0-31.0 N [facility] CampusLzzqukuUYVYFBPQCO3053-06-71 09:47:00 Test Item Value Reference Range Interpretation Comments Hgb (test code = Hgb) 14.0 12.0-16.0 N [facility] CampusOoxyhaoSKGNONULBH6701-07-76 09:47:00 Test Item Value Reference Range Interpretation Comments MCHC (test code = MCHC) 35.2 32.0-36.0 N [facility] CampusPrubhhvTXIKLFXELM3435-55-24 09:47:00 Test Item Value Reference Range Interpretation Comments RDW (test code = RDW) 13.9 11.5-14.5 N [facility] CampusMtzvzpqZQLTEPYPRP4453-03-91 09:47:00 Test Item Value Reference Range Interpretation Comments Platelet (test code = Platelet) 160 133-450 N [facility] CampusJkaevneMEEUHNDRXO7547-76-46 09:47:00 Test Item Value Reference Range Interpretation Comments MPV (test code = MPV) 11.9 7.4-10.4 H [facility] CampusDsadyqiSRNBBZWDWK8007-58-47 09:47:00 Test Item Value Reference Range Interpretation Comments WBC (test code = WBC) 7.7 3.7-10.4 N [facility] CampusWxblxtrIBJCGUINDR7101-16-87 09:47:00 Test Item Value Reference Range Interpretation Comments RBC (test code = RBC) 4.80 4.20-5.40 N [facility]YsigzkoSRSWJRUKY2160-30-53 10:28:00 Test Item Value Reference Range Interpretation Comments Phosphorus (test code = Phosphorus) 2.6 2.5-4.5 N [facility]manXahuixoPUZFNESME3986-69-41 10:28:00 Test Item Value Reference Range Interpretation Comments Magnesium Lvl (test code = Magnesium 1.8 1.8-2.4 N Lvl) [facility]manEjyebkgYVPWUAKIC9103-89-97 10:28:00 Test Item Value Reference Range Interpretation Comments Potassium Lvl (test code = Potassium 3.7 3.5-5.1 N Lvl) [facility]manQlpajxcXAIFHKUJQ4519-87-31 10:28:00 Test Item Value Reference Range Interpretation Comments Sodium Lvl (test code = Sodium Lvl) 137 135-145 N [facility]manJzyquycJJRVWMBZD9315-71-04 10:28:00 Test Item Value Reference Range Interpretation Comments Creatinine Lvl (test code = Creatinine 0.6 0.5-1.4 N Lvl) [facility]manYdiqziiXXBBGZCXW0281-42-89 10:28:00 Test Item Value Reference Range Interpretation Comments BUN (test code = BUN) 16 7-22 N [facility]manVqixgikOXMFFUGLZ0821-54-98 10:28:00 Test Item Value Reference Range Interpretation Comments Glucose Lvl (test code = Glucose Lvl) 200 [facility]MhpvfttMFEGQIDVT6533-08-78 10:28:00 Test Item Value Reference Range Interpretation Comments Calcium Lvl (test code = Calcium Lvl) 8.3 8.5-10.5 L [facility]MbhugwjRYBDZJKDX7134-62-52 10:28:00 Test Item Value Reference Range Interpretation Comments AGAP (test code = AGAP) 19.7 10.0-20.0 N [facility]manIfyitdwXSGDZSFDF6435-36-07 10:28:00 Test Item Value Reference Range Interpretation Comments Chloride Lvl (test code = Chloride Lvl) 99 95-109 N [facility]manHqmdwcdWMDPRADUP2725-27-40 10:28:00 Test Item Value Reference Range Interpretation Comments CO2 (test code = CO2) 22 24-32 L [facility] CampusFjmoptnVOKPXYHSZY5841-38-18 10:28:00 Test Item Value Reference Range Interpretation Comments Platelet (test code = Platelet) 172 133-450 N [facility] CampusRlkizjrSXIGOAAZKK7349-07-59 10:28:00 Test Item Value Reference Range Interpretation Comments MPV (test code = MPV) 12.0 7.4-10.4 H [facility] CampusUtlmhlbBYUFSUGKRW4227-67-43 10:28:00 Test Item Value Reference Range Interpretation Comments WBC (test code = WBC) 7.3 3.7-10.4 N [facility] CampusLmroorvGUXBBYTHBW7670-52-06 10:28:00 Test Item Value Reference Range Interpretation Comments RDW (test code = RDW) 14.6 11.5-14.5 H [facility] CampusFqczybcRKNCCFBHTY5640-29-24 10:28:00 Test Item Value Reference Range Interpretation Comments MCHC (test code = MCHC) 35.0 32.0-36.0 N [facility] CampusAnidknrEDILJVCQNZ2325-66-85 10:28:00 Test Item Value Reference Range Interpretation Comments RBC (test code = RBC) 4.54 4.20-5.40 N [facility] CampusEvezhizSFGRKVRAUH9052-83-19 10:28:00 Test Item Value Reference Range Interpretation Comments Hct (test code = Hct) 37.6 36.0-48.0 N [facility] CampusJitpnrnDBPLXWJDXE8351-45-38 10:28:00 Test Item Value Reference Range Interpretation Comments MCV (test code = MCV) 82.9 81.0-99.0 N [facility] CampusXkmxlazYCUOJQJZPX5984-83-64 10:28:00 Test Item Value Reference Range Interpretation Comments MCH (test code = MCH) 29.0 pg 27.0-31.0 N [facility] CampusAghcrmeWHQCALPZZG7446-90-61 10:28:00 Test Item Value Reference Range Interpretation Comments Hgb (test code = Hgb) 13.2 12.0-16.0 N [facility] CampusYueklqnNDLIEJKCLB3280-20-34 10:28:00 Test Item Value Reference Range Interpretation Comments Elliptocyte (test code = Slight A Elliptocyte) *ABN*(08/21/2011 04:28:00) [facility] CampusIpcidwhVKBNRCNEXJ6263-85-82 10:28:00 Test Item Value Reference Range Interpretation Comments Polychrom (test code = Slight (08/21/2011 N Polychrom) 04:28:00) [facility] CampusWtcsrapUSEFUUXQYZ5774-08-14 10:28:00 Test Item Value Reference Range Interpretation Comments Basophils # (test code 0.0 See_Comment N [Aut omated message] The = Basophils #) system which generated this result tra nsmitted reference range : <=0.2. The reference r leo was not used to int erpret this result as normal/abnormal . [facility] CampusKlgmfzoXIKQDUAOMP6667-60-00 10:28:00 Test Item Value Reference Range Interpretation Comments Hypochrom (test code = Slight (08/21/2011 N Hypochrom) 04:28:00) [facility] CampusMcqsbafZLDBTMQKVT1861-92-26 10:28:00 Test Item Value Reference Range Interpretation Comments Monocytes # (test code 0.6 See_Comment N [Aut omated message] The = Monocytes #) system which generated this result tra nsmitted reference range : <=0.8. The reference r leo was not used to int erpret this result as normal/abnormal . [facility] CampusPoiwoivGBFMAFRRTJ7855-87-99 10:28:00 Test Item Value Reference Range Interpretation Comments Eosinophils # (test code 0.0 See_Comment N [A utomated message] The = Eosinophils #) system whic h generated this result tra nsmitted reference range : <=0.5. The reference r leo was not used to int erpret this result as normal/abnormal . [facility] CampusHtpbagaVMKFSMZBCW3797-11-30 10:28:00 Test Item Value Reference Range Interpretation Comments Segs-Bands # (test code = Segs-Bands #) 5.3 1.5-8.1 N [facility] CampusAjzktxxRAODPKUZAU2735-28-10 10:28:00 Test Item Value Reference Range Interpretation Comments Lymphocytes # (test code = Lymphocytes 1.3 1.0-5.5 N #) [facility] CampusTveadqaXZZKKCZAKS6490-66-21 10:28:00 Test Item Value Reference Range Interpretation Comments Basophils (test code = 0.5 See_Comment N [Aut omated message] The Basophils) system which ge nerated this result tra nsmitted reference range : <=1.0. The reference r leo was not used to int erpret this result as normal/abnormal . [facility] CampusGrqyrzbQIGQYOSVVZ0149-29-54 10:28:00 Test Item Value Reference Range Interpretation Comments Monocytes (test code = Monocytes) 8.5 2.0-12.0 N [facility] CampusMizgowpWBTEYJHRJE6986-71-81 10:28:00 Test Item Value Reference Range Interpretation Comments Eosinophils (test code = 0.3 See_Comment N [A utomated message] The Eosinophils) system which ge nerated this result tra nsmitted reference range : <=4.0. The reference r leo was not used to int erpret this result as normal/abnormal . [facility] CampusKvsqevjYGSKMLMKHT1996-30-07 10:28:00 Test Item Value Reference Range Interpretation Comments Lymphocytes (test code = Lymphocytes) 17.3 20.0-40.0 L [facility] CampusFoqgqiqGMKRUJTBUJ4922-23-65 10:28:00 Test Item Value Reference Range Interpretation Comments Segs (test code = Segs) 73.4 45.0-75.0 N [facility]LvbsxntIMSLGEZUC4882-66-05 10:28:00 Test Item Value Reference Range Interpretation Comments Phosphorus (test code = Phosphorus) 2.6 2.5-4.5 N [facility]manTrrsucwALUPRVQDH8201-19-94 10:28:00 Test Item Value Reference Range Interpretation Comments Magnesium Lvl (test code = Magnesium 1.8 1.8-2.4 N Lvl) [facility]manFugmjoxSFQERCAIX5154-26-89 10:28:00 Test Item Value Reference Range Interpretation Comments Potassium Lvl (test code = Potassium 3.7 3.5-5.1 N Lvl) [facility]manVpjglsyFHKLRLCJB5921-06-90 10:28:00 Test Item Value Reference Range Interpretation Comments Sodium Lvl (test code = Sodium Lvl) 137 135-145 N [facility]manQtigdkgEQEFTIEYJ1108-13-34 10:28:00 Test Item Value Reference Range Interpretation Comments Creatinine Lvl (test code = Creatinine 0.6 0.5-1.4 N Lvl) [facility]manVoduyukYUMIGIWRV6081-05-28 10:28:00 Test Item Value Reference Range Interpretation Comments BUN (test code = BUN) 16 7-22 N [facility]manUjfadpyPKXFORYQU8904-82-85 10:28:00 Test Item Value Reference Range Interpretation Comments Glucose Lvl (test code = Glucose Lvl) 200 [facility]manGkogkpaDMVXHDZFJ5968-57-71 10:28:00 Test Item Value Reference Range Interpretation Comments Calcium Lvl (test code = Calcium Lvl) 8.3 8.5-10.5 L [facility]manTiomsviGYXAEZQZT4029-55-37 10:28:00 Test Item Value Reference Range Interpretation Comments AGAP (test code = AGAP) 19.7 10.0-20.0 N [facility]manEpssnioLCLMARUEA5916-59-31 10:28:00 Test Item Value Reference Range Interpretation Comments Chloride Lvl (test code = Chloride Lvl) 99 95-109 N [facility]manYkruiqmHXLSSBGMD8202-36-85 10:28:00 Test Item Value Reference Range Interpretation Comments CO2 (test code = CO2) 22 24-32 L [facility] CampusWagkagfXZNUTMWNYE8750-91-94 10:28:00 Test Item Value Reference Range Interpretation Comments Platelet (test code = Platelet) 172 133-450 N [facility] CampusIetbimcTJLHDBLRMQ9467-96-27 10:28:00 Test Item Value Reference Range Interpretation Comments MPV (test code = MPV) 12.0 7.4-10.4 H [facility] CampusYzvzccpRMQUPHEWOH3465-72-67 10:28:00 Test Item Value Reference Range Interpretation Comments WBC (test code = WBC) 7.3 3.7-10.4 N [facility] CampusJdqqanmVPFBLRTFWN5327-70-22 10:28:00 Test Item Value Reference Range Interpretation Comments RDW (test code = RDW) 14.6 11.5-14.5 H [facility] CampusXziqopkPCVXVCEKLJ0574-18-26 10:28:00 Test Item Value Reference Range Interpretation Comments MCHC (test code = MCHC) 35.0 32.0-36.0 N [facility] CampusYbfdfagFQZQTOXEWY5293-18-12 10:28:00 Test Item Value Reference Range Interpretation Comments RBC (test code = RBC) 4.54 4.20-5.40 N [facility] CampusYnelgqePAQOWVQLVP1039-28-51 10:28:00 Test Item Value Reference Range Interpretation Comments Hct (test code = Hct) 37.6 36.0-48.0 N [facility] CampusUsyepjkMNZDXMBEPS9591-95-03 10:28:00 Test Item Value Reference Range Interpretation Comments MCV (test code = MCV) 82.9 81.0-99.0 N [facility] CampusZfaehyrLSPRTHVFBQ0784-39-91 10:28:00 Test Item Value Reference Range Interpretation Comments MCH (test code = MCH) 29.0 pg 27.0-31.0 N [facility] CampusZbfyarqAFINJQISLG5615-12-92 10:28:00 Test Item Value Reference Range Interpretation Comments Hgb (test code = Hgb) 13.2 12.0-16.0 N [facility] CampusOhzccqbBFFFEKUEEG2378-91-48 10:28:00 Test Item Value Reference Range Interpretation Comments Elliptocyte (test code = Slight A Elliptocyte) *ABN*(08/21/2011 04:28:00) [facility] CampusKerakytKRJUYZXNEJ8927-76-40 10:28:00 Test Item Value Reference Range Interpretation Comments Polychrom (test code = Slight (08/21/2011 N Polychrom) 04:28:00) [facility] CampusUoxsijoVZAATUPHXY9555-45-63 10:28:00 Test Item Value Reference Range Interpretation Comments Basophils # (test code 0.0 See_Comment N [Aut omated message] The = Basophils #) system which generated this result tra nsmitted reference range : <=0.2. The reference r leo was not used to int erpret this result as normal/abnormal . [facility] CampusEjqtjrxBPXAJBTPXM3953-94-77 10:28:00 Test Item Value Reference Range Interpretation Comments Hypochrom (test code = Slight (08/21/2011 N Hypochrom) 04:28:00) [facility] CampusSjfrkbhEEBXUVWYIL6278-40-03 10:28:00 Test Item Value Reference Range Interpretation Comments Monocytes # (test code 0.6 See_Comment N [Aut omated message] The = Monocytes #) system which generated this result tra nsmitted reference range : <=0.8. The reference r leo was not used to int erpret this result as normal/abnormal . [facility] CampusJmyjhjaZXDNDAJNLX5038-32-92 10:28:00 Test Item Value Reference Range Interpretation Comments Eosinophils # (test code 0.0 See_Comment N [A utomated message] The = Eosinophils #) system wh h generated this result tra nsmitted reference range : <=0.5. The reference r leo was not used to int erpret this result as normal/abnormal . [facility] CampusOhggkkuXWAXTUKRWY2313-23-50 10:28:00 Test Item Value Reference Range Interpretation Comments Segs-Bands # (test code = Segs-Bands #) 5.3 1.5-8.1 N [facility] CampusJokttsxLAIPDOTLZM4491-32-96 10:28:00 Test Item Value Reference Range Interpretation Comments Lymphocytes # (test code = Lymphocytes 1.3 1.0-5.5 N #) [facility] CampusUkwdyzpAHMMBYYXAX2638-47-11 10:28:00 Test Item Value Reference Range Interpretation Comments Basophils (test code = 0.5 See_Comment N [Aut omated message] The Basophils) system which ge nerated this result tra nsmitted reference range : <=1.0. The reference r leo was not used to int erpret this result as normal/abnormal . [facility] CampusDaggcomAMXOTPWADO8214-98-83 10:28:00 Test Item Value Reference Range Interpretation Comments Monocytes (test code = Monocytes) 8.5 2.0-12.0 N [facility] CampusDezjagxXVUFVKCFCW0429-46-47 10:28:00 Test Item Value Reference Range Interpretation Comments Eosinophils (test code = 0.3 See_Comment N [A utomated message] The Eosinophils) system which ge nerated this result tra nsmitted reference range : <=4.0. The reference r leo was not used to int erpret this result as normal/abnormal . [facility] CampusPshcyeaEAFZXDIQSP0119-98-40 10:28:00 Test Item Value Reference Range Interpretation Comments Lymphocytes (test code = Lymphocytes) 17.3 20.0-40.0 L [facility] CampusWkihntyJQPWHYYUHO4443-80-07 10:28:00 Test Item Value Reference Range Interpretation Comments Segs (test code = Segs) 73.4 45.0-75.0 N [facility]MkwmsraWGKLARYPN2169-32-12 10:28:00 Test Item Value Reference Range Interpretation Comments Phosphorus (test code = Phosphorus) 2.6 2.5-4.5 N [facility]manVyfakcdDISWTWFVL5921-33-47 10:28:00 Test Item Value Reference Range Interpretation Comments Magnesium Lvl (test code = Magnesium 1.8 1.8-2.4 N Lvl) [facility] KaufmanErxnxedIQVIXHTBZ7517-29-75 10:28:00 Test Item Value Reference Range Interpretation Comments Potassium Lvl (test code = Potassium 3.7 3.5-5.1 N Lvl) [facility]FmpklmbTOIGNONFT5598-17-91 10:28:00 Test Item Value Reference Range Interpretation Comments Sodium Lvl (test code = Sodium Lvl) 137 135-145 N [facility]manXnprbjlECYZIIRSC0083-50-41 10:28:00 Test Item Value Reference Range Interpretation Comments Creatinine Lvl (test code = Creatinine 0.6 0.5-1.4 N Lvl) [facility]manZgcfcocAZPGUODCB1689-71-31 10:28:00 Test Item Value Reference Range Interpretation Comments BUN (test code = BUN) 16 7-22 N [facility]manFvbcxbpQAMTCQJRC7990-94-44 10:28:00 Test Item Value Reference Range Interpretation Comments Glucose Lvl (test code = Glucose Lvl) 200 [facility]manVegodriYLRXFMEUV4942-65-05 10:28:00 Test Item Value Reference Range Interpretation Comments Calcium Lvl (test code = Calcium Lvl) 8.3 8.5-10.5 L [facility]manKkslrviBRDCSJZZO9201-15-51 10:28:00 Test Item Value Reference Range Interpretation Comments AGAP (test code = AGAP) 19.7 10.0-20.0 N [facility]manWqxjwyfQPRPHYQNB1478-57-47 10:28:00 Test Item Value Reference Range Interpretation Comments Chloride Lvl (test code = Chloride Lvl) 99 95-109 N [facility]manYfowcetVAZDIVLRO3636-18-74 10:28:00 Test Item Value Reference Range Interpretation Comments CO2 (test code = CO2) 22 24-32 L [facility] CampusGrjnoloRSQMZRKCEK2294-82-52 10:28:00 Test Item Value Reference Range Interpretation Comments Platelet (test code = Platelet) 172 133-450 N [facility] CampusNzftsznLOJGGBYWRH1195-69-76 10:28:00 Test Item Value Reference Range Interpretation Comments MPV (test code = MPV) 12.0 7.4-10.4 H [facility] CampusJrlxcvjDFXITMNXKH4134-90-18 10:28:00 Test Item Value Reference Range Interpretation Comments WBC (test code = WBC) 7.3 3.7-10.4 N [facility] CampusAaorbtyQTMEZHLOJD2706-83-11 10:28:00 Test Item Value Reference Range Interpretation Comments RDW (test code = RDW) 14.6 11.5-14.5 H [facility] CampusJobrsplZMLGOAKSUM5239-51-12 10:28:00 Test Item Value Reference Range Interpretation Comments MCHC (test code = MCHC) 35.0 32.0-36.0 N [facility] CampusQaijdcqVSGMYOUWRZ3724-55-68 10:28:00 Test Item Value Reference Range Interpretation Comments RBC (test code = RBC) 4.54 4.20-5.40 N [facility] CampusKvtgkakIVIGEJOOTL7369-49-27 10:28:00 Test Item Value Reference Range Interpretation Comments Hct (test code = Hct) 37.6 36.0-48.0 N [facility] CampusLcsxysiELUDVBAPPT5199-77-76 10:28:00 Test Item Value Reference Range Interpretation Comments MCV (test code = MCV) 82.9 81.0-99.0 N [facility] CampusYzbbnosISDNIIMPLJ6923-61-66 10:28:00 Test Item Value Reference Range Interpretation Comments MCH (test code = MCH) 29.0 pg 27.0-31.0 N [facility] CampusKxgxpzhZRXXBLAIDD4714-05-78 10:28:00 Test Item Value Reference Range Interpretation Comments Hgb (test code = Hgb) 13.2 12.0-16.0 N [facility] CampusAreajftYKLMDFBBHY2266-08-93 10:28:00 Test Item Value Reference Range Interpretation Comments Elliptocyte (test code = Slight A Elliptocyte) *ABN*(08/21/2011 04:28:00) [facility] CampusWrpfbzpRRIOEWCKTT6393-70-38 10:28:00 Test Item Value Reference Range Interpretation Comments Polychrom (test code = Slight (08/21/2011 N Polychrom) 04:28:00) [facility] CampusQadyqubFSFAPFAWKF8991-37-53 10:28:00 Test Item Value Reference Range Interpretation Comments Basophils # (test code 0.0 See_Comment N [Aut omated message] The = Basophils #) system which generated this result tra nsmitted reference range : <=0.2. The reference r leo was not used to int erpret this result as normal/abnormal . [facility] CampusAbbtkogUKHQHSJMWW3540-65-89 10:28:00 Test Item Value Reference Range Interpretation Comments Hypochrom (test code = Slight (08/21/2011 N Hypochrom) 04:28:00) [facility] CampusDqmodgrSKNBNTJZYP7514-63-30 10:28:00 Test Item Value Reference Range Interpretation Comments Monocytes # (test code 0.6 See_Comment N [Aut omated message] The = Monocytes #) system which generated this result tra nsmitted reference range : <=0.8. The reference r leo was not used to int erpret this result as normal/abnormal . [facility] CampusLmpfkgmQZRXSFKKLR9559-83-29 10:28:00 Test Item Value Reference Range Interpretation Comments Eosinophils # (test code 0.0 See_Comment N [A utomated message] The = Eosinophils #) system wh h generated this result tra nsmitted reference range : <=0.5. The reference r leo was not used to int erpret this result as normal/abnormal . [facility] CampusXshqtwaKBZRNDPFHD2705-41-81 10:28:00 Test Item Value Reference Range Interpretation Comments Segs-Bands # (test code = Segs-Bands #) 5.3 1.5-8.1 N [facility] CampusMvqbjsaOSKJZYDIIC4570-23-25 10:28:00 Test Item Value Reference Range Interpretation Comments Lymphocytes # (test code = Lymphocytes 1.3 1.0-5.5 N #) [facility] CampusEyjwvabGMWLSEYRRN5253-22-99 10:28:00 Test Item Value Reference Range Interpretation Comments Basophils (test code = 0.5 See_Comment N [Aut omated message] The Basophils) system which ge nerated this result tra nsmitted reference range : <=1.0. The reference r leo was not used to int erpret this result as normal/abnormal . [facility] CampusTezpnfhJXUNHOQNKA2851-27-56 10:28:00 Test Item Value Reference Range Interpretation Comments Monocytes (test code = Monocytes) 8.5 2.0-12.0 N [facility] CampusIpbfzsyUOKIOZOHBH8480-18-94 10:28:00 Test Item Value Reference Range Interpretation Comments Eosinophils (test code = 0.3 See_Comment N [A utomated message] The Eosinophils) system which ge nerated this result tra nsmitted reference range : <=4.0. The reference r leo was not used to int erpret this result as normal/abnormal . [facility] CampusQejnuhmLYNYVMGZVY0158-88-05 10:28:00 Test Item Value Reference Range Interpretation Comments Lymphocytes (test code = Lymphocytes) 17.3 20.0-40.0 L [facility] CampusRlpdebfNBXSCSWYVN0268-40-12 10:28:00 Test Item Value Reference Range Interpretation Comments Segs (test code = Segs) 73.4 45.0-75.0 N [facility]NdqwqxgVXZANRHHJ4441-07-52 10:28:00 Test Item Value Reference Range Interpretation Comments Phosphorus (test code = Phosphorus) 2.6 2.5-4.5 N [facility]QdpjuugTVPSHHYNS7292-12-82 10:28:00 Test Item Value Reference Range Interpretation Comments Magnesium Lvl (test code = Magnesium 1.8 1.8-2.4 N Lvl) [facility]XsspgavQDQPYDNMU7184-62-68 10:28:00 Test Item Value Reference Range Interpretation Comments Potassium Lvl (test code = Potassium 3.7 3.5-5.1 N Lvl) [facility]manZhpywwsXKVLEPRQK0696-89-48 10:28:00 Test Item Value Reference Range Interpretation Comments Sodium Lvl (test code = Sodium Lvl) 137 135-145 N [facility]manGjubcruHBMSCQSMF0521-64-75 10:28:00 Test Item Value Reference Range Interpretation Comments Creatinine Lvl (test code = Creatinine 0.6 0.5-1.4 N Lvl) [facility]manSsfujkbXRINXMLRU6783-88-47 10:28:00 Test Item Value Reference Range Interpretation Comments BUN (test code = BUN) 16 7-22 N [facility]manJolsnqwJEJBKNJOG6527-87-61 10:28:00 Test Item Value Reference Range Interpretation Comments Glucose Lvl (test code = Glucose Lvl) 200 [facility]manBfstqmvAFUSRFLPN4661-88-00 10:28:00 Test Item Value Reference Range Interpretation Comments Calcium Lvl (test code = Calcium Lvl) 8.3 8.5-10.5 L [facility]manYvrbbbqPGQTNPSBG6906-32-82 10:28:00 Test Item Value Reference Range Interpretation Comments AGAP (test code = AGAP) 19.7 10.0-20.0 N [facility]manGfikjfbKBAWCXWAZ4337-11-05 10:28:00 Test Item Value Reference Range Interpretation Comments Chloride Lvl (test code = Chloride Lvl) 99 95-109 N [facility]manQaqrgxlGPIWSSEYO7981-76-24 10:28:00 Test Item Value Reference Range Interpretation Comments CO2 (test code = CO2) 22 24-32 L [facility] CampusUpjphslNBCHBQMEIK9094-33-88 10:28:00 Test Item Value Reference Range Interpretation Comments Platelet (test code = Platelet) 172 133-450 N [facility] CampusYqlitzgBXPDAGKOGN8691-02-93 10:28:00 Test Item Value Reference Range Interpretation Comments MPV (test code = MPV) 12.0 7.4-10.4 H [facility] CampusDsrccfjNWLLBNPYWP0190-02-61 10:28:00 Test Item Value Reference Range Interpretation Comments WBC (test code = WBC) 7.3 3.7-10.4 N [facility] CampusYstanunKIHMNHIVXT5642-16-43 10:28:00 Test Item Value Reference Range Interpretation Comments RDW (test code = RDW) 14.6 11.5-14.5 H [facility] CampusUzagxpaBPHWZAMFJM7376-02-96 10:28:00 Test Item Value Reference Range Interpretation Comments MCHC (test code = MCHC) 35.0 32.0-36.0 N [facility] CampusRwmffzvWXEIMVEWBX0915-13-19 10:28:00 Test Item Value Reference Range Interpretation Comments RBC (test code = RBC) 4.54 4.20-5.40 N [facility] CampusFxhfvcaQPNUXYNKKS3213-25-09 10:28:00 Test Item Value Reference Range Interpretation Comments Hct (test code = Hct) 37.6 36.0-48.0 N [facility] CampusEhxzgpmLCPWIHEBIS7214-09-38 10:28:00 Test Item Value Reference Range Interpretation Comments MCV (test code = MCV) 82.9 81.0-99.0 N [facility] CampusLqapzsrHULGJOVXMO0843-28-86 10:28:00 Test Item Value Reference Range Interpretation Comments MCH (test code = MCH) 29.0 pg 27.0-31.0 N [facility] CampusRnbejsbRVXNYSXMLB3073-16-35 10:28:00 Test Item Value Reference Range Interpretation Comments Hgb (test code = Hgb) 13.2 12.0-16.0 N [facility] CampusXnsqptrGDJSNZMYMI1701-84-41 10:28:00 Test Item Value Reference Range Interpretation Comments Elliptocyte (test code = Slight A Elliptocyte) *ABN*(08/21/2011 04:28:00) [facility] CampusSpjgazuEKKJKHEDUJ2038-33-31 10:28:00 Test Item Value Reference Range Interpretation Comments Polychrom (test code = Slight (08/21/2011 N Polychrom) 04:28:00) [facility] CampusQrbbcldYGNYDDXHNR6956-44-36 10:28:00 Test Item Value Reference Range Interpretation Comments Basophils # (test code 0.0 See_Comment N [Aut omated message] The = Basophils #) system which generated this result tra nsmitted reference range : <=0.2. The reference r leo was not used to int erpret this result as normal/abnormal . [facility] CampusIasizagVKRQPYWRFF5333-15-22 10:28:00 Test Item Value Reference Range Interpretation Comments Hypochrom (test code = Slight (08/21/2011 N Hypochrom) 04:28:00) [facility] CampusEuiqvylCWANFGOLBQ4270-15-57 10:28:00 Test Item Value Reference Range Interpretation Comments Monocytes # (test code 0.6 See_Comment N [Aut omated message] The = Monocytes #) system which generated this result tra nsmitted reference range : <=0.8. The reference r leo was not used to int erpret this result as normal/abnormal . [facility] CampusLlyfemiKSQNEZVWEO7928-96-99 10:28:00 Test Item Value Reference Range Interpretation Comments Eosinophils # (test code 0.0 See_Comment N [A utomated message] The = Eosinophils #) system whic h generated this result tra nsmitted reference range : <=0.5. The reference r leo was not used to int erpret this result as normal/abnormal . [facility] CampusKifuvqoPMQVLXCWOG8679-23-27 10:28:00 Test Item Value Reference Range Interpretation Comments Segs-Bands # (test code = Segs-Bands #) 5.3 1.5-8.1 N [facility] CampusWrqkaffOVDWRKGLKO0068-90-12 10:28:00 Test Item Value Reference Range Interpretation Comments Lymphocytes # (test code = Lymphocytes 1.3 1.0-5.5 N #) [facility] CampusIsfmxezJVXQZJNTLH7774-68-28 10:28:00 Test Item Value Reference Range Interpretation Comments Basophils (test code = 0.5 See_Comment N [Aut omated message] The Basophils) system which ge nerated this result tra nsmitted reference range : <=1.0. The reference r leo was not used to int erpret this result as normal/abnormal . [facility] CampusIwggvykTCQTZLEYMB8772-57-93 10:28:00 Test Item Value Reference Range Interpretation Comments Monocytes (test code = Monocytes) 8.5 2.0-12.0 N [facility] CampusBcdsanmKIJUFYXIXN9065-11-99 10:28:00 Test Item Value Reference Range Interpretation Comments Eosinophils (test code = 0.3 See_Comment N [A utomated message] The Eosinophils) system which ge nerated this result tra nsmitted reference range : <=4.0. The reference r leo was not used to int erpret this result as normal/abnormal . [facility] CampusQhwdafsHCJRIWBCXW2847-90-84 10:28:00 Test Item Value Reference Range Interpretation Comments Lymphocytes (test code = Lymphocytes) 17.3 20.0-40.0 L [facility] CampusKhblvfqHTITDCGPGW4121-24-82 10:28:00 Test Item Value Reference Range Interpretation Comments Segs (test code = Segs) 73.4 45.0-75.0 N [facility]manGlyrouqABWKBWOPX4268-47-66 10:28:00 Test Item Value Reference Range Interpretation Comments Phosphorus (test code = Phosphorus) 2.6 2.5-4.5 N [facility]manVwdlborQSQMHWBGK1682-55-38 10:28:00 Test Item Value Reference Range Interpretation Comments Magnesium Lvl (test code = Magnesium 1.8 1.8-2.4 N Lvl) [facility]manUmhlvvnWTYWSCYFR9741-18-11 10:28:00 Test Item Value Reference Range Interpretation Comments Potassium Lvl (test code = Potassium 3.7 3.5-5.1 N Lvl) [facility]manDplcjwmHMFFRMTQA0935-46-92 10:28:00 Test Item Value Reference Range Interpretation Comments Sodium Lvl (test code = Sodium Lvl) 137 135-145 N [facility]manIppixnxTRQJVPQCS2770-51-48 10:28:00 Test Item Value Reference Range Interpretation Comments Creatinine Lvl (test code = Creatinine 0.6 0.5-1.4 N Lvl) [facility]manMsacwqeAFQSXQTUN1788-64-21 10:28:00 Test Item Value Reference Range Interpretation Comments BUN (test code = BUN) 16 7-22 N [facility]manZwmatldDSQWPPBQM8156-39-86 10:28:00 Test Item Value Reference Range Interpretation Comments Glucose Lvl (test code = Glucose Lvl) 200 [facility]manPqpvpesKMMDRMRFO0707-31-47 10:28:00 Test Item Value Reference Range Interpretation Comments Calcium Lvl (test code = Calcium Lvl) 8.3 8.5-10.5 L [facility]manQchljxoDOXLFXNSK3255-04-52 10:28:00 Test Item Value Reference Range Interpretation Comments AGAP (test code = AGAP) 19.7 10.0-20.0 N [facility]manUobnshfEPXIUVAWV8844-12-47 10:28:00 Test Item Value Reference Range Interpretation Comments Chloride Lvl (test code = Chloride Lvl) 99 95-109 N [facility]manLxlybdnWGHRDALXU0142-51-76 10:28:00 Test Item Value Reference Range Interpretation Comments CO2 (test code = CO2) 22 24-32 L [facility] CampusTrzauznFOGNBMTYHJ4737-19-67 10:28:00 Test Item Value Reference Range Interpretation Comments Platelet (test code = Platelet) 172 133-450 N [facility] CampusUeekmmvQYRPJYSDNK6455-21-36 10:28:00 Test Item Value Reference Range Interpretation Comments MPV (test code = MPV) 12.0 7.4-10.4 H [facility] CampusBwembxyFWNETKJNGC9744-91-85 10:28:00 Test Item Value Reference Range Interpretation Comments WBC (test code = WBC) 7.3 3.7-10.4 N [facility] CampusJmjqgydFSUNPSWDLP7833-18-18 10:28:00 Test Item Value Reference Range Interpretation Comments RDW (test code = RDW) 14.6 11.5-14.5 H [facility] CampusAwnqujxZNHPGUIPZR2977-22-57 10:28:00 Test Item Value Reference Range Interpretation Comments MCHC (test code = MCHC) 35.0 32.0-36.0 N [facility] CampusBuhbverURYFLOISBJ3445-34-90 10:28:00 Test Item Value Reference Range Interpretation Comments RBC (test code = RBC) 4.54 4.20-5.40 N [facility] CampusDngxdgbHZPTVIWETX3613-20-86 10:28:00 Test Item Value Reference Range Interpretation Comments Hct (test code = Hct) 37.6 36.0-48.0 N [facility] CampusMuedijoYJCQLAOXKD3090-39-38 10:28:00 Test Item Value Reference Range Interpretation Comments MCV (test code = MCV) 82.9 81.0-99.0 N [facility] CampusCsgwpxhCVPWLCSKYW3867-41-28 10:28:00 Test Item Value Reference Range Interpretation Comments MCH (test code = MCH) 29.0 pg 27.0-31.0 N [facility] CampusEmblhfjLSIEVHNUAP4895-89-56 10:28:00 Test Item Value Reference Range Interpretation Comments Hgb (test code = Hgb) 13.2 12.0-16.0 N [facility] CampusQefupalNNEEGFASGI6062-44-25 10:28:00 Test Item Value Reference Range Interpretation Comments Elliptocyte (test code = Slight A Elliptocyte) *ABN*(08/21/2011 04:28:00) [facility] CampusZmzqpsrYICZDQHOTM3262-38-54 10:28:00 Test Item Value Reference Range Interpretation Comments Polychrom (test code = Slight (08/21/2011 N Polychrom) 04:28:00) [facility] CampusBrvfgjyPPOVSUQGNG0336-56-38 10:28:00 Test Item Value Reference Range Interpretation Comments Basophils # (test code 0.0 See_Comment N [Aut omated message] The = Basophils #) system which generated this result tra nsmitted reference range : <=0.2. The reference r leo was not used to int erpret this result as normal/abnormal . [facility] CampusRrsvojiKOAPFQBEKD4337-59-25 10:28:00 Test Item Value Reference Range Interpretation Comments Hypochrom (test code = Slight (08/21/2011 N Hypochrom) 04:28:00) [facility] CampusFbyasnqDZPFMDUZNA8765-40-49 10:28:00 Test Item Value Reference Range Interpretation Comments Monocytes # (test code 0.6 See_Comment N [Aut omated message] The = Monocytes #) system which generated this result tra nsmitted reference range : <=0.8. The reference r leo was not used to int erpret this result as normal/abnormal . [facility] CampusQkrkkchNNXOWHYARM4281-53-43 10:28:00 Test Item Value Reference Range Interpretation Comments Eosinophils # (test code 0.0 See_Comment N [A utomated message] The = Eosinophils #) system whic h generated this result tra nsmitted reference range : <=0.5. The reference r leo was not used to int erpret this result as normal/abnormal . [facility] CampusGedkmejMZTDNSPJLA7117-72-36 10:28:00 Test Item Value Reference Range Interpretation Comments Segs-Bands # (test code = Segs-Bands #) 5.3 1.5-8.1 N [facility] CampusTxzndbePHSZVRAFXU5016-44-72 10:28:00 Test Item Value Reference Range Interpretation Comments Lymphocytes # (test code = Lymphocytes 1.3 1.0-5.5 N #) [facility] CampusSjnuyxuKXPKFPCCJJ8110-98-18 10:28:00 Test Item Value Reference Range Interpretation Comments Basophils (test code = 0.5 See_Comment N [Aut omated message] The Basophils) system which ge nerated this result tra nsmitted reference range : <=1.0. The reference r leo was not used to int erpret this result as normal/abnormal . [facility] CampusHkmolekXSCFYUOAND5399-37-93 10:28:00 Test Item Value Reference Range Interpretation Comments Monocytes (test code = Monocytes) 8.5 2.0-12.0 N [facility] CampusKqgepndEFSFALKPIE2064-97-52 10:28:00 Test Item Value Reference Range Interpretation Comments Eosinophils (test code = 0.3 See_Comment N [A utomated message] The Eosinophils) system which ge nerated this result tra nsmitted reference range : <=4.0. The reference r leo was not used to int erpret this result as normal/abnormal . [facility] CampusSxcfdqpGPVTWHKWMY8791-59-54 10:28:00 Test Item Value Reference Range Interpretation Comments Lymphocytes (test code = Lymphocytes) 17.3 20.0-40.0 L [facility]UizafnnIVNTWLNQPX2215-04-94 10:28:00 Test Item Value Reference Range Interpretation Comments Segs (test code = Segs) 73.4 45.0-75.0 N [facility] GLUCOSE MDIMVMJ3391-62-53 07:47:00 Test Item Value Reference Range Interpretation Comments Comment2 (test code = Comment2) [facility] SXHFGZX4512-16-04 07:47:00 Test Item Value Reference Range Interpretation Comments Comment2 (test code = Comment2) Verify w/Lab [facility] GLUCOSE HFOUQBZ9543-49-50 07:47:00 Test Item Value Reference Range Interpretation Comments Comment2 (test code = Comment2) Verify w/Lab [facility] GLUCOSE CJBJAVG6268-45-86 07:47:00 Test Item Value Reference Range Interpretation Comments Comment2 (test code = Comment2) Verify w/Lab [facility] GLUCOSE YWMNEBT0381-82-36 07:47:00 Test Item Value Reference Range Interpretation Comments Comment2 (test code = Comment2) [facility] HospitalAglawtnQVQJUENXR2191-15-24 21:58:00 Test Item Value Reference Range Interpretation Comments S Preg (test code = S Negative (08/19/2011 N Preg) 15:58:00) [facility]NjmeuktKSCIDIFOB8539-98-85 21:58:00 Test Item Value Reference Range Interpretation Comments Lipase Lvl (test code = Lipase Lvl) 169 73-393 N [facility]InnkkxuIOUXXCSPK2101-93-46 21:58:00 Test Item Value Reference Range Interpretation Comments ALT (test code = ALT) 54 See_Comment N [Auto mated message] The system which ge nerated this result transmit rohit reference range : <=65. The reference range was not used to interpr et this result as reji l/abnormal. [facility] HospitalWqyhbpwNASKITVNN7490-00-97 21:58:00 Test Item Value Reference Range Interpretation Comments Alk Phos (test code = Alk Phos) 110 39-136 N [facility] HospitalZzykjufKTFAGSPWB5252-24-55 21:58:00 Test Item Value Reference Range Interpretation Comments Bili Direct (test code 0.1 See_Comment N [Aut omated message] The = Bili Direct) system which generated this result tra nsmitted reference range : <=0.3. The reference r leo was not used to int erpret this result as reji l/abnormal. [facility]FigfcqlWBOAYCERE7432-25-91 21:58:00 Test Item Value Reference Range Interpretation Comments Bili Total (test code = Bili Total) 0.9 0.2-1.3 N [facility]manPydzfyxQFDREEDWP8289-63-10 21:58:00 Test Item Value Reference Range Interpretation Comments Albumin Lvl (test code = Albumin Lvl) 4.4 3.5-5.0 N [facility]manRphwywcXBHUAXCIE2320-04-11 21:58:00 Test Item Value Reference Range Interpretation Comments Total Protein (test code = Total 8.8 6.4-8.4 H Protein) [facility]manEljdgwbBIPZQVGJL3758-85-46 21:58:00 Test Item Value Reference Range Interpretation Comments Bili Indirect (test 0.8 See_Comment N [Automa rohit message] The code = Bili Indirect) system which generated this result tra nsmitted reference range : <=1.0. The reference r leo was not used to int erpret this result as normal/abnormal . [facility]manAftzwmzAHKBRMPCX3522-70-41 21:58:00 Test Item Value Reference Range Interpretation Comments AST (test code = AST) 36 See_Comment N [Auto mated message] The system which ge nerated this result transmit rohit reference range : <=37. The reference range was not used to interpr et this result as reji l/abnormal. [facility]manUowsxtwTBURYMCTA3469-70-60 21:58:00 Test Item Value Reference Range Interpretation Comments Globulin (test code = Globulin) 4.4 2.0-4.0 H [facility]manLjejmojSANFYMYXO6630-21-84 21:58:00 Test Item Value Reference Range Interpretation Comments A/G Ratio (test code = A/G Ratio) 1.0 0.7-1.6 N [facility]TdfxqdtYAQOPDAYJD5218-59-83 21:58:00 Test Item Value Reference Range Interpretation Comments UA Bacteria (test code Occasional /HPF N = UA Bacteria) (08/19/2011 15:58:00) [facility] WestHmebtgwWOJUMZXNWX3304-20-84 21:58:00 Test Item Value Reference Range Interpretation Comments UA RBC (test 3-5 /HPF See_Comment A [Automated mes pastor] code = UA RBC) *ABN*(08/19/2011 The syste m which 15:58:00) generated this result transmitted ref erence range: <=2. The reference range was not used to int erpret this result as normal/abnormal . [facility]HrygvwcMFNIYMTBMM9326-23-42 21:58:00 Test Item Value Reference Range Interpretation Comments UA WBC (test code = 3 See_Comment [Automa rohit message] The UA WBC) system which ge nerated this result transmit rohit reference range : <=5. The reference range was not used to interpr et this result as reji l/abnormal. [facility] WestHdenbdmHZGRAJWGBT2046-23-10 21:58:00 Test Item Value Reference Range Interpretation Comments UA Mucus (test code = Few /LPF (08/19/2011 N UA Mucus) 15:58:00) [facility] WestXotacwzYDHIVHIRQT3209-25-28 21:58:00 Test Item Value Reference Range Interpretation Comments UA Amorph Destiny (test Occasional /HPF A code = UA Amorph *ABN*(08/19/2011 Destiny) 15:58:00) [facility] WestPqlheowGPAEBSXOXU4590-35-87 21:58:00 Test Item Value Reference Range Interpretation Comments UA Urobilinogen (test code = UA 0.2 0.1-1.0 N Urobilinogen) [facility] WestJpbwesdZXBIUQSKHU2339-78-75 21:58:00 Test Item Value Reference Range Interpretation Comments UA Sq Epi (test code = Rare /LPF (08/19/2011 N UA Sq Epi) 15:58:00) [facility] WestHhcdkuaZSXMRAWUOH4558-18-32 21:58:00 Test Item Value Reference Range Interpretation Comments Micro? (test code = Performed (08/19/2011 N Micro?) 15:58:00) [facility] WestJcjgkjaFNAPMDDDTL8252-61-66 21:58:00 Test Item Value Reference Range Interpretation Comments UA Leuk Est (test Negative (08/19/2011 N code = UA Leuk Est) 15:58:00) [facility] WestXpjzxbqWMTORVHNWM0037-72-80 21:58:00 Test Item Value Reference Range Interpretation Comments UA Nitrite (test code Negative (08/19/2011 N = UA Nitrite) 15:58:00) [facility] WestGlezupnWXCQQWNYPS9610-54-20 21:58:00 Test Item Value Reference Range Interpretation Comments UA pH (test code = UA pH) 5.5 1 5.0-8.0 N [facility] StationElhrntmCMZUTJKRHE0010-43-18 21:58:00 Test Item Value Reference Range Interpretation Comments UA Blood (test code = Trace *ABN*(08/19/2011 A UA Blood) 15:58:00) [facility] StationJsiaowaKFRAHFNWBX3615-05-77 21:58:00 Test Item Value Reference Range Interpretation Comments UA Bili (test code = Negative (08/19/2011 N UA Bili) 15:58:00) [facility] StationRvattyhJPGGPDLYBP4061-77-06 21:58:00 Test Item Value Reference Range Interpretation Comments UA Ketones (test code = 80 mg/dL A UA Ketones) *ABN*(08/19/2011 15:58:00) [facility] StationLnarfurLKWQXYTMCY7444-15-13 21:58:00 Test Item Value Reference Range Interpretation Comments UA Glucose (test code = >=1000 mg/dL A UA Glucose) *ABN*(08/19/2011 15:58:00) [facility] StationHinijkwBPBISTKWAF4728-99-05 21:58:00 Test Item Value Reference Range Interpretation Comments UA Protein (test code Negative (08/19/2011 N = UA Protein) 15:58:00) [facility] StationOtftwojQVFYCFMMWQ0933-42-57 21:58:00 Test Item Value Reference Range Interpretation Comments UA Turbidity (test code Slight Cloudy N = UA Turbidity) (08/19/2011 15:58:00) [facility] StationHyzkftgKATXDOKEGK1958-62-03 21:58:00 Test Item Value Reference Range Interpretation Comments UA Spec Grav (test code = UA Spec 1.025 1 Grav) [facility] StationOlsaassUFXDVAUHNE4262-12-27 21:58:00 Test Item Value Reference Range Interpretation Comments UA Color (test code = Yellow (08/19/2011 N UA Color) 15:58:00) [facility]UpigybcOVJYBFWAD3441-32-32 21:58:00 Test Item Value Reference Range Interpretation Comments S Preg (test code = S Negative (08/19/2011 N Preg) 15:58:00) [facility]manDmxbrarDQFPOUMLJ6872-64-22 21:58:00 Test Item Value Reference Range Interpretation Comments Lipase Lvl (test code = Lipase Lvl) 169 73-393 N [facility]manSxtnuodBXYWUFVSL6388-28-72 21:58:00 Test Item Value Reference Range Interpretation Comments ALT (test code = ALT) 54 See_Comment N [Auto mated message] The system which ge nerated this result transmit rohit reference range : <=65. The reference range was not used to interpr et this result as reji l/abnormal. [facility]manWdroxdaRRGYEOPOK0876-81-67 21:58:00 Test Item Value Reference Range Interpretation Comments Alk Phos (test code = Alk Phos) 110 39-136 N [facility]manFlxlkywYHMXWJHQR3270-18-84 21:58:00 Test Item Value Reference Range Interpretation Comments Bili Direct (test code 0.1 See_Comment N [Aut omated message] The = Bili Direct) system which generated this result tra nsmitted reference range : <=0.3. The reference r leo was not used to int erpret this result as reji l/abnormal. [facility]manVrdgtolCZGGEZNJY1213-62-96 21:58:00 Test Item Value Reference Range Interpretation Comments Bili Total (test code = Bili Total) 0.9 0.2-1.3 N [facility]manWicfgxdGGDIMFEVV5812-60-43 21:58:00 Test Item Value Reference Range Interpretation Comments Albumin Lvl (test code = Albumin Lvl) 4.4 3.5-5.0 N [facility]manZusngoaWQMNYUBFB8775-89-53 21:58:00 Test Item Value Reference Range Interpretation Comments Total Protein (test code = Total 8.8 6.4-8.4 H Protein) [facility]manLfcfcbjJYWHZDXHD6099-37-14 21:58:00 Test Item Value Reference Range Interpretation Comments Bili Indirect (test 0.8 See_Comment N [Automa rohit message] The code = Bili Indirect) system which generated this result tra nsmitted reference range : <=1.0. The reference r leo was not used to int erpret this result as normal/abnormal . [facility]manGslgyndQREJWQSLO2871-04-52 21:58:00 Test Item Value Reference Range Interpretation Comments AST (test code = AST) 36 See_Comment N [Auto mated message] The system which ge nerated this result transmit rohit reference range : <=37. The reference range was not used to interpr et this result as reji l/abnormal. [facility] HospitalPfarrmgUYNWLKIBA1398-64-98 21:58:00 Test Item Value Reference Range Interpretation Comments Globulin (test code = Globulin) 4.4 2.0-4.0 H [facility]VmsbuvdNTRYVGYEZ3539-60-00 21:58:00 Test Item Value Reference Range Interpretation Comments A/G Ratio (test code = A/G Ratio) 1.0 0.7-1.6 N [facility] WestNpvmukvPSBVDKMICO8622-48-34 21:58:00 Test Item Value Reference Range Interpretation Comments UA Bacteria (test code Occasional /HPF N = UA Bacteria) (08/19/2011 15:58:00) [facility] WestQdusngoTVVWCHWWUF2849-72-03 21:58:00 Test Item Value Reference Range Interpretation Comments UA RBC (test 3-5 /HPF See_Comment A [Automated mes pastor] code = UA RBC) *ABN*(08/19/2011 The syste m which 15:58:00) generated this result transmitted ref erence range: <=2. The reference range was not used to int erpret this result as normal/abnormal . [facility] WestTqrgjiuLHXWPBPDOH5598-16-76 21:58:00 Test Item Value Reference Range Interpretation Comments UA WBC (test code = 3 See_Comment [Automa rohit message] The UA WBC) system which ge nerated this result transmit rohit reference range : <=5. The reference range was not used to interpr et this result as reji l/abnormal. [facility] WestYbzjlxcITMPAZYQBC9263-40-83 21:58:00 Test Item Value Reference Range Interpretation Comments UA Mucus (test code = Few /LPF (08/19/2011 N UA Mucus) 15:58:00) [facility] WestCqtuysqSPIXLDOASE3204-95-08 21:58:00 Test Item Value Reference Range Interpretation Comments UA Amorph Destiny (test Occasional /HPF A code = UA Amorph *ABN*(08/19/2011 Destiny) 15:58:00) [facility] WestOnniyncHFURIOKWYF5982-82-45 21:58:00 Test Item Value Reference Range Interpretation Comments UA Urobilinogen (test code = UA 0.2 0.1-1.0 N Urobilinogen) [facility] WestPfvgfpyXTSWLHCYXH8275-14-58 21:58:00 Test Item Value Reference Range Interpretation Comments UA Sq Epi (test code = Rare /LPF (08/19/2011 N UA Sq Epi) 15:58:00) [facility] WestCtqtithQKFDCSXKXT3550-19-23 21:58:00 Test Item Value Reference Range Interpretation Comments Micro? (test code = Performed (08/19/2011 N Micro?) 15:58:00) [facility] StationDclsjeuBEJUBLTAMC8094-87-63 21:58:00 Test Item Value Reference Range Interpretation Comments UA Leuk Est (test Negative (08/19/2011 N code = UA Leuk Est) 15:58:00) [facility] WestCxttudkVOHRXNMJCE9607-67-48 21:58:00 Test Item Value Reference Range Interpretation Comments UA Nitrite (test code Negative (08/19/2011 N = UA Nitrite) 15:58:00) [facility] StationZjgmqrdNNAPTZHYNN8796-41-61 21:58:00 Test Item Value Reference Range Interpretation Comments UA pH (test code = UA pH) 5.5 1 5.0-8.0 N [facility] WestUpnjjzdVRGPTZPWEO1397-29-69 21:58:00 Test Item Value Reference Range Interpretation Comments UA Blood (test code = Trace *ABN*(08/19/2011 A UA Blood) 15:58:00) [facility] WestOaahkfsJUAIANEHOX9574-78-94 21:58:00 Test Item Value Reference Range Interpretation Comments UA Bili (test code = Negative (08/19/2011 N UA Bili) 15:58:00) [facility] StationCkvbpepJIZONJUZYS3700-01-27 21:58:00 Test Item Value Reference Range Interpretation Comments UA Ketones (test code = 80 mg/dL A UA Ketones) *ABN*(08/19/2011 15:58:00) [facility] WestKdyyaxyFVHUPWWGUE0760-36-68 21:58:00 Test Item Value Reference Range Interpretation Comments UA Glucose (test code = >=1000 mg/dL A UA Glucose) *ABN*(08/19/2011 15:58:00) [facility] StationCoddacfVFRXISTUHV0196-99-70 21:58:00 Test Item Value Reference Range Interpretation Comments UA Protein (test code Negative (08/19/2011 N = UA Protein) 15:58:00) [facility] WestCtxjivjNNSTIFVUFS4620-51-29 21:58:00 Test Item Value Reference Range Interpretation Comments UA Turbidity (test code Slight Cloudy N = UA Turbidity) (08/19/2011 15:58:00) [facility] HospitalLabrnmmJUWICNAXMW6303-50-36 21:58:00 Test Item Value Reference Range Interpretation Comments UA Spec Grav (test code = UA Spec 1.025 1 Grav) [facility] HospitalGxvyinsKFLYVFNUWL0378-22-33 21:58:00 Test Item Value Reference Range Interpretation Comments UA Color (test code = Yellow (08/19/2011 N UA Color) 15:58:00) [facility]manPbkljzsIIESZOETE3375-45-15 21:58:00 Test Item Value Reference Range Interpretation Comments S Preg (test code = S Negative (08/19/2011 N Preg) 15:58:00) [facility]manEmiznzkHBRBVULQJ0389-29-25 21:58:00 Test Item Value Reference Range Interpretation Comments Lipase Lvl (test code = Lipase Lvl) 169 73-393 N [facility]manIhgbiadAFQOHTNTP4914-77-57 21:58:00 Test Item Value Reference Range Interpretation Comments ALT (test code = ALT) 54 See_Comment N [Auto mated message] The system which ge nerated this result transmit rohit reference range : <=65. The reference range was not used to interpr et this result as reji l/abnormal. [facility]manBfjyccxTQZXFRUWT1139-62-51 21:58:00 Test Item Value Reference Range Interpretation Comments Alk Phos (test code = Alk Phos) 110 39-136 N [facility]manZpwrttuLQFQNEDUB9471-15-81 21:58:00 Test Item Value Reference Range Interpretation Comments Bili Direct (test code 0.1 See_Comment N [Aut omated message] The = Bili Direct) system which generated this result tra nsmitted reference range : <=0.3. The reference r leo was not used to int erpret this result as reji l/abnormal. [facility]manKfobtiiWQNSSRAGN0599-16-88 21:58:00 Test Item Value Reference Range Interpretation Comments Bili Total (test code = Bili Total) 0.9 0.2-1.3 N [facility]manKbsajreWRDTTBLIZ0138-15-54 21:58:00 Test Item Value Reference Range Interpretation Comments Albumin Lvl (test code = Albumin Lvl) 4.4 3.5-5.0 N [facility]manZhuhyglYZHMTELLZ2867-86-74 21:58:00 Test Item Value Reference Range Interpretation Comments Total Protein (test code = Total 8.8 6.4-8.4 H Protein) [facility]manBoykjjaEJMNQVZEA6223-89-02 21:58:00 Test Item Value Reference Range Interpretation Comments Bili Indirect (test 0.8 See_Comment N [Automa rohit message] The code = Bili Indirect) system which generated this result tra nsmitted reference range : <=1.0. The reference r leo was not used to int erpret this result as normal/abnormal . [facility] HospitalAherdneJHSGETCTY8126-85-06 21:58:00 Test Item Value Reference Range Interpretation Comments AST (test code = AST) 36 See_Comment N [Auto mated message] The system which ge nerated this result transmit rohit reference range : <=37. The reference range was not used to interpr et this result as reji l/abnormal. [facility] HospitalCemgmvuNYIJADYBV7082-43-20 21:58:00 Test Item Value Reference Range Interpretation Comments Globulin (test code = Globulin) 4.4 2.0-4.0 H [facility] HospitalDiusdtiTEQRSTGOQ5541-20-05 21:58:00 Test Item Value Reference Range Interpretation Comments A/G Ratio (test code = A/G Ratio) 1.0 0.7-1.6 N [facility] HospitalSfwngprFWRVURIGFL8730-79-82 21:58:00 Test Item Value Reference Range Interpretation Comments UA Bacteria (test code Occasional /HPF N = UA Bacteria) (08/19/2011 15:58:00) [facility] WestNciqpcqUVLMEWSDLZ5126-53-67 21:58:00 Test Item Value Reference Range Interpretation Comments UA RBC (test 3-5 /HPF See_Comment A [Automated mes pastor] code = UA RBC) *ABN*(08/19/2011 The syste m which 15:58:00) generated this result transmitted ref erence range: <=2. The reference range was not used to int erpret this result as normal/abnormal . [facility] HospitalAmfwfexFTVCFYRXRP2670-66-94 21:58:00 Test Item Value Reference Range Interpretation Comments UA WBC (test code = 3 See_Comment [Automa rohit message] The UA WBC) system which ge nerated this result transmit rohit reference range : <=5. The reference range was not used to interpr et this result as reji l/abnormal. [facility] HospitalSsklpvgDKKETCJFYG7462-59-49 21:58:00 Test Item Value Reference Range Interpretation Comments UA Mucus (test code = Few /LPF (08/19/2011 N UA Mucus) 15:58:00) [facility] WestWcumpofHLUHWGHCGP3114-41-66 21:58:00 Test Item Value Reference Range Interpretation Comments UA Amorph Destiny (test Occasional /HPF A code = UA Amorph *ABN*(08/19/2011 Destiny) 15:58:00) [facility] WestObgpnhtCNMLKFXZFT9750-87-75 21:58:00 Test Item Value Reference Range Interpretation Comments UA Urobilinogen (test code = UA 0.2 0.1-1.0 N Urobilinogen) [facility] WestSztcuejTKBVEDBUJP7163-49-92 21:58:00 Test Item Value Reference Range Interpretation Comments UA Sq Epi (test code = Rare /LPF (08/19/2011 N UA Sq Epi) 15:58:00) [facility] WestShejjnoSAHFDXXCDD7576-40-73 21:58:00 Test Item Value Reference Range Interpretation Comments Micro? (test code = Performed (08/19/2011 N Micro?) 15:58:00) [facility] WestEphxwenTRGUXMPXEI7059-98-04 21:58:00 Test Item Value Reference Range Interpretation Comments UA Leuk Est (test Negative (08/19/2011 N code = UA Leuk Est) 15:58:00) [facility] WestAhuowaoFBTZBVZUTO3684-63-41 21:58:00 Test Item Value Reference Range Interpretation Comments UA Nitrite (test code Negative (08/19/2011 N = UA Nitrite) 15:58:00) [facility] WestAonhykuAUTUCPBATI0794-88-20 21:58:00 Test Item Value Reference Range Interpretation Comments UA pH (test code = UA pH) 5.5 1 5.0-8.0 N [facility] HospitalWcukyroEOGVTVVBVO3846-82-62 21:58:00 Test Item Value Reference Range Interpretation Comments UA Blood (test code = Trace *ABN*(08/19/2011 A UA Blood) 15:58:00) [facility] WestQzmzoowLPXEJHPJBN9581-92-16 21:58:00 Test Item Value Reference Range Interpretation Comments UA Bili (test code = Negative (08/19/2011 N UA Bili) 15:58:00) [facility] HospitalWegtdipKHFYYDVSLM3413-53-12 21:58:00 Test Item Value Reference Range Interpretation Comments UA Ketones (test code = 80 mg/dL A UA Ketones) *ABN*(08/19/2011 15:58:00) [facility] StationIdddhhcZHYHXXHLYG8994-97-67 21:58:00 Test Item Value Reference Range Interpretation Comments UA Glucose (test code = >=1000 mg/dL A UA Glucose) *ABN*(08/19/2011 15:58:00) [facility] StationYdifkmsLXFNGTGSJT9979-82-55 21:58:00 Test Item Value Reference Range Interpretation Comments UA Protein (test code Negative (08/19/2011 N = UA Protein) 15:58:00) [facility] StationIrucksrOAXKMDXDXY8687-96-75 21:58:00 Test Item Value Reference Range Interpretation Comments UA Turbidity (test code Slight Cloudy N = UA Turbidity) (08/19/2011 15:58:00) [facility] StationLedvooeVZJFLYYHQG0208-82-31 21:58:00 Test Item Value Reference Range Interpretation Comments UA Spec Grav (test code = UA Spec 1.025 1 Grav) [facility] StationMmaqpiqRLILJJGWYE3021-33-49 21:58:00 Test Item Value Reference Range Interpretation Comments UA Color (test code = Yellow (08/19/2011 N UA Color) 15:58:00) [facility]manAlyfpggTZOEFJHGX0775-33-26 21:58:00 Test Item Value Reference Range Interpretation Comments S Preg (test code = S Negative (08/19/2011 N Preg) 15:58:00) [facility]manAtxkvnsUEYTZZNJL3108-22-26 21:58:00 Test Item Value Reference Range Interpretation Comments Lipase Lvl (test code = Lipase Lvl) 169 73-393 N [facility]manAbxghpuRBJCGMSWE7693-11-40 21:58:00 Test Item Value Reference Range Interpretation Comments ALT (test code = ALT) 54 See_Comment N [Auto mated message] The system which ge nerated this result transmit rohit reference range : <=65. The reference range was not used to interpr et this result as reji l/abnormal. [facility]manUpvswohROPMPMQDR2959-03-61 21:58:00 Test Item Value Reference Range Interpretation Comments Alk Phos (test code = Alk Phos) 110 39-136 N [facility]manUsyylcrUSRVAVOCB2562-77-89 21:58:00 Test Item Value Reference Range Interpretation Comments Bili Direct (test code 0.1 See_Comment N [Aut omated message] The = Bili Direct) system which generated this result tra nsmitted reference range : <=0.3. The reference r leo was not used to int erpret this result as reji l/abnormal. [facility] HospitalIwksvmlXZQKEUHQK0125-82-45 21:58:00 Test Item Value Reference Range Interpretation Comments Bili Total (test code = Bili Total) 0.9 0.2-1.3 N [facility] HospitalJvwwjrfNXRQGBNJP1499-74-93 21:58:00 Test Item Value Reference Range Interpretation Comments Albumin Lvl (test code = Albumin Lvl) 4.4 3.5-5.0 N [facility] HospitalRxhkhdjNULANKRHW5176-48-73 21:58:00 Test Item Value Reference Range Interpretation Comments Total Protein (test code = Total 8.8 6.4-8.4 H Protein) [facility]manTobyvaeJDSJMTTDW5837-09-00 21:58:00 Test Item Value Reference Range Interpretation Comments Bili Indirect (test 0.8 See_Comment N [Automa rohit message] The code = Bili Indirect) system which generated this result tra nsmitted reference range : <=1.0. The reference r leo was not used to int erpret this result as normal/abnormal . [facility] HospitalYkdjvqmXOAHMRAQS2527-63-64 21:58:00 Test Item Value Reference Range Interpretation Comments AST (test code = AST) 36 See_Comment N [Auto mated message] The system which ge nerated this result transmit rohit reference range : <=37. The reference range was not used to interpr et this result as reji l/abnormal. [facility] HospitalSybqypkDCFIXVSDY9093-61-39 21:58:00 Test Item Value Reference Range Interpretation Comments Globulin (test code = Globulin) 4.4 2.0-4.0 H [facility] HospitalDfnminvGQQUUYWXS0892-50-66 21:58:00 Test Item Value Reference Range Interpretation Comments A/G Ratio (test code = A/G Ratio) 1.0 0.7-1.6 N [facility] HospitalYrqzffkMXCDTXSFDN5496-03-23 21:58:00 Test Item Value Reference Range Interpretation Comments UA Bacteria (test code Occasional /HPF N = UA Bacteria) (08/19/2011 15:58:00) [facility] WestXudsvlbPZFFGHNHUL4778-23-39 21:58:00 Test Item Value Reference Range Interpretation Comments UA RBC (test 3-5 /HPF See_Comment A [Automated mes pastor] code = UA RBC) *ABN*(08/19/2011 The syste m which 15:58:00) generated this result transmitted ref erence range: <=2. The reference range was not used to int erpret this result as normal/abnormal . [facility] WestPsomwtkLZMHWSKXWW2010-21-40 21:58:00 Test Item Value Reference Range Interpretation Comments UA WBC (test code = 3 See_Comment [Automa rohit message] The UA WBC) system which ge nerated this result transmit rohit reference range : <=5. The reference range was not used to interpr et this result as reji l/abnormal. [facility] StationWbxatjvCOBDVCDKRN5746-85-98 21:58:00 Test Item Value Reference Range Interpretation Comments UA Mucus (test code = Few /LPF (08/19/2011 N UA Mucus) 15:58:00) [facility] WestWhqznjtTNPPFQJXBE0306-71-73 21:58:00 Test Item Value Reference Range Interpretation Comments UA Amorph Destiny (test Occasional /HPF A code = UA Amorph *ABN*(08/19/2011 Destiny) 15:58:00) [facility] WestWzbrwpcVYJNHVLYJZ8293-38-50 21:58:00 Test Item Value Reference Range Interpretation Comments UA Urobilinogen (test code = UA 0.2 0.1-1.0 N Urobilinogen) [facility] WestNlxusxhGUDFDRHESB1801-32-00 21:58:00 Test Item Value Reference Range Interpretation Comments UA Sq Epi (test code = Rare /LPF (08/19/2011 N UA Sq Epi) 15:58:00) [facility] HospitalVjydkmkFZBKGNQYDZ9884-79-85 21:58:00 Test Item Value Reference Range Interpretation Comments Micro? (test code = Performed (08/19/2011 N Micro?) 15:58:00) [facility] WestVblcierRVKIYOCNWB4419-19-70 21:58:00 Test Item Value Reference Range Interpretation Comments UA Leuk Est (test Negative (08/19/2011 N code = UA Leuk Est) 15:58:00) [facility] WestOltpltwUQOAUMLKYP9271-51-85 21:58:00 Test Item Value Reference Range Interpretation Comments UA Nitrite (test code Negative (08/19/2011 N = UA Nitrite) 15:58:00) [facility] HospitalRxhrlaaAHXGOXYEUB8219-01-65 21:58:00 Test Item Value Reference Range Interpretation Comments UA pH (test code = UA pH) 5.5 1 5.0-8.0 N [facility] WestFqmveedSSNEXHTNFJ0899-91-59 21:58:00 Test Item Value Reference Range Interpretation Comments UA Blood (test code = Trace *ABN*(08/19/2011 A UA Blood) 15:58:00) [facility] HospitalJftoczfXWRSOUSMDW7940-73-59 21:58:00 Test Item Value Reference Range Interpretation Comments UA Bili (test code = Negative (08/19/2011 N UA Bili) 15:58:00) [facility] WestZvhbrabBXSMBVNXRP9023-50-86 21:58:00 Test Item Value Reference Range Interpretation Comments UA Ketones (test code = 80 mg/dL A UA Ketones) *ABN*(08/19/2011 15:58:00) [facility] WestVaazygvSJJOOJGIVU8951-14-29 21:58:00 Test Item Value Reference Range Interpretation Comments UA Glucose (test code = >=1000 mg/dL A UA Glucose) *ABN*(08/19/2011 15:58:00) [facility] WestImemopmANVARDSJNG3984-00-82 21:58:00 Test Item Value Reference Range Interpretation Comments UA Protein (test code Negative (08/19/2011 N = UA Protein) 15:58:00) [facility] WestXeynfprBPIWCSRMDV8015-85-76 21:58:00 Test Item Value Reference Range Interpretation Comments UA Turbidity (test code Slight Cloudy N = UA Turbidity) (08/19/2011 15:58:00) [facility] HospitalJjddsfcLOMHSTZJNW2354-53-01 21:58:00 Test Item Value Reference Range Interpretation Comments UA Spec Grav (test code = UA Spec 1.025 1 Grav) [facility] WestJulmemrPABMBLAXXD6047-18-18 21:58:00 Test Item Value Reference Range Interpretation Comments UA Color (test code = Yellow (08/19/2011 N UA Color) 15:58:00) [facility] HospitalBrwfrefIIOIDBPBM5673-24-34 21:58:00 Test Item Value Reference Range Interpretation Comments S Preg (test code = S Negative (08/19/2011 N Preg) 15:58:00) [facility]BuuvcwzCYIJSNEUT9936-65-76 21:58:00 Test Item Value Reference Range Interpretation Comments Lipase Lvl (test code = Lipase Lvl) 169 73-393 N [facility]manKzqtrxqTNNJABOQD8849-59-70 21:58:00 Test Item Value Reference Range Interpretation Comments ALT (test code = ALT) 54 See_Comment N [Auto mated message] The system which ge nerated this result transmit rohit reference range : <=65. The reference range was not used to interpr et this result as reji l/abnormal. [facility]manWkgjlxsHNYZYFPUF7560-72-05 21:58:00 Test Item Value Reference Range Interpretation Comments Alk Phos (test code = Alk Phos) 110 39-136 N [facility]manHztcnzsXUKXYSTAL7365-52-38 21:58:00 Test Item Value Reference Range Interpretation Comments Bili Direct (test code 0.1 See_Comment N [Aut omated message] The = Bili Direct) system which generated this result tra nsmitted reference range : <=0.3. The reference r leo was not used to int erpret this result as reji l/abnormal. [facility]manNdgixxvWETBYVAOR4419-19-31 21:58:00 Test Item Value Reference Range Interpretation Comments Bili Total (test code = Bili Total) 0.9 0.2-1.3 N [facility]manQsjbyjdNCCXDCZZC3726-26-50 21:58:00 Test Item Value Reference Range Interpretation Comments Albumin Lvl (test code = Albumin Lvl) 4.4 3.5-5.0 N [facility]manHvkijxpMOKXUKWLX4900-36-39 21:58:00 Test Item Value Reference Range Interpretation Comments Total Protein (test code = Total 8.8 6.4-8.4 H Protein) [facility]manCbhpeoyLSGWRIEWS8674-24-12 21:58:00 Test Item Value Reference Range Interpretation Comments Bili Indirect (test 0.8 See_Comment N [Automa rohit message] The code = Bili Indirect) system which generated this result tra nsmitted reference range : <=1.0. The reference r leo was not used to int erpret this result as normal/abnormal . [facility]manPobflilVDWDSWPHM2549-12-67 21:58:00 Test Item Value Reference Range Interpretation Comments AST (test code = AST) 36 See_Comment N [Auto mated message] The system which ge nerated this result transmit rohit reference range : <=37. The reference range was not used to interpr et this result as reji l/abnormal. [facility]Fy[facility]ieBKHZROVPZ5693[facility] 21:58:00 Test Item Value Reference Range Interpretation Comments Globulin (test code = Globulin) 4.4 2.0-4.0 H [facility]manZefqlltLOHLLHXTV7551-23-84 21:58:00 Test Item Value Reference Range Interpretation Comments A/G Ratio (test code = A/G Ratio) 1.0 0.7-1.6 N [facility]IywgvtjVOJREJTZHM5070-71-60 21:58:00 Test Item Value Reference Range Interpretation Comments UA Bacteria (test code Occasional /HPF N = UA Bacteria) (08/19/2011 15:58:00) [facility] StationRjovunwCFABQZYNGV5536-61-72 21:58:00 Test Item Value Reference Range Interpretation Comments UA RBC (test 3-5 /HPF See_Comment A [Automated mes pastor] code = UA RBC) *ABN*(08/19/2011 The syste m which 15:58:00) generated this result transmitted ref erence range: <=2. The reference range was not used to int erpret this result as normal/abnormal . [facility] WestPmlkjdoEAQDGNKBJK0146-93-90 21:58:00 Test Item Value Reference Range Interpretation Comments UA WBC (test code = 3 See_Comment [Automa rohit message] The UA WBC) system which ge nerated this result transmit rohit reference range : <=5. The reference range was not used to interpr et this result as reji l/abnormal. [facility] HospitalJcsxkllLEFFPLOMCD3768-67-97 21:58:00 Test Item Value Reference Range Interpretation Comments UA Mucus (test code = Few /LPF (08/19/2011 N UA Mucus) 15:58:00) [facility] WestGduwyylAHNEHMYUSB9265-25-49 21:58:00 Test Item Value Reference Range Interpretation Comments UA Amorph Destiny (test Occasional /HPF A code = UA Amorph *ABN*(08/19/2011 Destiny) 15:58:00) [facility] WestOhuhtdcTEDGFPKTUG2487-17-79 21:58:00 Test Item Value Reference Range Interpretation Comments UA Urobilinogen (test code = UA 0.2 0.1-1.0 N Urobilinogen) [facility] WestQvgolpgABXMLHINDN6391-34-61 21:58:00 Test Item Value Reference Range Interpretation Comments UA Sq Epi (test code = Rare /LPF (08/19/2011 N UA Sq Epi) 15:58:00) [facility] WestDtcpfufJQKDIGTIFL4600-78-38 21:58:00 Test Item Value Reference Range Interpretation Comments Micro? (test code = Performed (08/19/2011 N Micro?) 15:58:00) [facility] WestJlmaoyyFRQSCFXCMJ2082-74-52 21:58:00 Test Item Value Reference Range Interpretation Comments UA Leuk Est (test Negative (08/19/2011 N code = UA Leuk Est) 15:58:00) [facility] StationEfqvipuFWNPIKMJQG1313-26-55 21:58:00 Test Item Value Reference Range Interpretation Comments UA Nitrite (test code Negative (08/19/2011 N = UA Nitrite) 15:58:00) [facility] StationGdmqfebCHXRIATEFN3539-43-67 21:58:00 Test Item Value Reference Range Interpretation Comments UA pH (test code = UA pH) 5.5 1 5.0-8.0 N [facility] WestVwznomdCSTFSBNHND6236-04-10 21:58:00 Test Item Value Reference Range Interpretation Comments UA Blood (test code = Trace *ABN*(08/19/2011 A UA Blood) 15:58:00) [facility] StationHacmrsxNPZNNLCYDC7167-37-35 21:58:00 Test Item Value Reference Range Interpretation Comments UA Bili (test code = Negative (08/19/2011 N UA Bili) 15:58:00) [facility] WestFtlkhbrDKEXKHISNM1734-01-25 21:58:00 Test Item Value Reference Range Interpretation Comments UA Ketones (test code = 80 mg/dL A UA Ketones) *ABN*(08/19/2011 15:58:00) [facility] WestLhinolhNJTVKITELG9599-06-92 21:58:00 Test Item Value Reference Range Interpretation Comments UA Glucose (test code = >=1000 mg/dL A UA Glucose) *ABN*(08/19/2011 15:58:00) [facility] WestIqvlpcbLIFBIFWWYH3267-49-45 21:58:00 Test Item Value Reference Range Interpretation Comments UA Protein (test code Negative (08/19/2011 N = UA Protein) 15:58:00) [facility] StationNkcjigmTYZDYXSMKV4318-44-38 21:58:00 Test Item Value Reference Range Interpretation Comments UA Turbidity (test code Slight Cloudy N = UA Turbidity) (08/19/2011 15:58:00) [facility] StationJxrknmuKVRGACBJMV4444-21-19 21:58:00 Test Item Value Reference Range Interpretation Comments UA Spec Grav (test code = UA Spec 1.025 1 Grav) [facility] StationVyohwxpLOGUSQYSRI0589-11-85 21:58:00 Test Item Value Reference Range Interpretation Comments UA Color (test code = Yellow (08/19/2011 N UA Color) 15:58:00) [facility]manBteupxaYMWHGGMAM9115-61-44 21:13:00 Test Item Value Reference Range Interpretation Comments AST (test code = AST) 23 See_Comment N [Auto mated message] The system which ge nerated this result transmit rohit reference range : <=37. The reference range was not used to interpr et this result as reji l/abnormal. [facility]manPrtubjzHZIAWWYRM6337-93-56 21:13:00 Test Item Value Reference Range Interpretation Comments Bili Total (test code = Bili Total) 1.0 0.2-1.3 N [facility]CxeswsyJVMFNYDTA6271-65-22 21:13:00 Test Item Value Reference Range Interpretation Comments Alk Phos (test code = Alk Phos) 115 39-136 N [facility]manSdkihyqCMAJJQBGQ5441-35-01 21:13:00 Test Item Value Reference Range Interpretation Comments ALT (test code = ALT) 56 See_Comment N [Auto mated message] The system which ge nerated this result transmit rohit reference range : <=65. The reference range was not used to interpr et this result as reji l/abnormal. [facility]manKbagbceFCPJFYWNN2281-91-40 21:13:00 Test Item Value Reference Range Interpretation Comments Total Protein (test code = Total 9.0 6.4-8.4 H Protein) [facility]manZdpsjurRHSRDUYSS8147-25-74 21:13:00 Test Item Value Reference Range Interpretation Comments Albumin Lvl (test code = Albumin Lvl) 4.8 3.5-5.0 N [facility]manChosdfhRRHDANFOX4339-23-58 21:13:00 Test Item Value Reference Range Interpretation Comments Globulin (test code = Globulin) 4.2 2.0-4.0 H [facility]manRgxilnuXYMPNSLRZ5805-70-30 21:13:00 Test Item Value Reference Range Interpretation Comments A/G Ratio (test code = A/G Ratio) 1.1 0.7-1.6 N [facility]manNlhdrpzJNQREBGNK6397-11-35 21:13:00 Test Item Value Reference Range Interpretation Comments B/C Ratio (test code = B/C Ratio) 30 6-25 H [facility] CampusXdgfoldAHUXZLOOVM4195-72-37 21:13:00 Test Item Value Reference Range Interpretation Comments RBC Morph (test code = Normal (08/19/2011 N RBC Morph) 15:13:00) [facility] CampusVawehehOJTCSCJGXR8603-87-07 21:13:00 Test Item Value Reference Range Interpretation Comments Large Plt (test code = Slight *ABN*(08/19/2011 A Large Plt) 15:13:00) [facility] CampusCdmnhvjECUVNNNOMS9482-41-81 21:13:00 Test Item Value Reference Range Interpretation Comments Atypical Lymphs (test code = Atypical 0.0 N Lymphs) [facility] CampusGepxnzsZLSPGIGGIN0905-58-70 21:13:00 Test Item Value Reference Range Interpretation Comments Bands (test code = 0.0 See_Comment N [Automat ed message] The Bands) system which ge nerated this result transmit rohit reference range : <=11.0. The reference r leo was not used to interpr et this result as reji l/abnormal. [facility]manUqgnibeAFJPFQLPF7886-58-19 21:13:00 Test Item Value Reference Range Interpretation Comments AST (test code = AST) 23 See_Comment N [Auto mated message] The system which ge nerated this result transmit rohit reference range : <=37. The reference range was not used to interpr et this result as reji l/abnormal. [facility]manCowmbijMHCLQTSPT9277-43-84 21:13:00 Test Item Value Reference Range Interpretation Comments Bili Total (test code = Bili Total) 1.0 0.2-1.3 N [facility]manIeewaubMFFFMSOJN1439-57-80 21:13:00 Test Item Value Reference Range Interpretation Comments Alk Phos (test code = Alk Phos) 115 39-136 N [facility]manAzsddcwNSAUFZWTS3805-30-15 21:13:00 Test Item Value Reference Range Interpretation Comments ALT (test code = ALT) 56 See_Comment N [Auto mated message] The system which ge nerated this result transmit rohit reference range : <=65. The reference range was not used to interpr et this result as reji l/abnormal. [facility]manDeybtkeRIBEWNXQH8861-16-08 21:13:00 Test Item Value Reference Range Interpretation Comments Total Protein (test code = Total 9.0 6.4-8.4 H Protein) [facility]manZnnzskyFLPEUYNCX4189-54-07 21:13:00 Test Item Value Reference Range Interpretation Comments Albumin Lvl (test code = Albumin Lvl) 4.8 3.5-5.0 N [facility]manVlfxjcwIEEQWCIVB1433-52-48 21:13:00 Test Item Value Reference Range Interpretation Comments Globulin (test code = Globulin) 4.2 2.0-4.0 H [facility]manNpdmzslVYOZKNSKQ0105-29-84 21:13:00 Test Item Value Reference Range Interpretation Comments A/G Ratio (test code = A/G Ratio) 1.1 0.7-1.6 N [facility]manKlehboxYHMBKFZJM9009-96-83 21:13:00 Test Item Value Reference Range Interpretation Comments B/C Ratio (test code = B/C Ratio) 30 6-25 H [facility] CampusYtlhmrsKFBDNDEEXX1625-28-15 21:13:00 Test Item Value Reference Range Interpretation Comments RBC Morph (test code = Normal (08/19/2011 N RBC Morph) 15:13:00) [facility] CampusSaejwxvGAHAEUOFNW0372-00-81 21:13:00 Test Item Value Reference Range Interpretation Comments Large Plt (test code = Slight *ABN*(08/19/2011 A Large Plt) 15:13:00) [facility] CampusBwwalfqBRVAPAGCRR0952-33-86 21:13:00 Test Item Value Reference Range Interpretation Comments Atypical Lymphs (test code = Atypical 0.0 N Lymphs) [facility] CampusWyteegdBPSVBCYPDD7469-29-27 21:13:00 Test Item Value Reference Range Interpretation Comments Bands (test code = 0.0 See_Comment N [Automat ed message] The Bands) system which ge nerated this result transmit rohit reference range : <=11.0. The reference r leo was not used to interpr et this result as reji l/abnormal. [facility]manZaladleRNSWMKDNX4255-22-27 21:13:00 Test Item Value Reference Range Interpretation Comments AST (test code = AST) 23 See_Comment N [Auto mated message] The system which ge nerated this result transmit rohit reference range : <=37. The reference range was not used to interpr et this result as reji l/abnormal. [facility]manHifcrqqVZJVPDJWE8361-29-27 21:13:00 Test Item Value Reference Range Interpretation Comments Bili Total (test code = Bili Total) 1.0 0.2-1.3 N [facility]manFlxzndcLYFPGAVIH1574-17-71 21:13:00 Test Item Value Reference Range Interpretation Comments Alk Phos (test code = Alk Phos) 115 39-136 N [facility]manZwugsnlFXUDGXXXW9416-80-34 21:13:00 Test Item Value Reference Range Interpretation Comments ALT (test code = ALT) 56 See_Comment N [Auto mated message] The system which ge nerated this result transmit rohit reference range : <=65. The reference range was not used to interpr et this result as reji l/abnormal. [facility]manLrtwpffSVJJPDJGR0778-74-05 21:13:00 Test Item Value Reference Range Interpretation Comments Total Protein (test code = Total 9.0 6.4-8.4 H Protein) [facility]manSlpcnfmOWRSZOIUV3075-27-31 21:13:00 Test Item Value Reference Range Interpretation Comments Albumin Lvl (test code = Albumin Lvl) 4.8 3.5-5.0 N [facility]manXlskspiJSZXUBSQY5501-62-83 21:13:00 Test Item Value Reference Range Interpretation Comments Globulin (test code = Globulin) 4.2 2.0-4.0 H [facility]manQajedcgAFZYDYJPC7419-48-69 21:13:00 Test Item Value Reference Range Interpretation Comments A/G Ratio (test code = A/G Ratio) 1.1 0.7-1.6 N [facility]manJoltvtbADXDIPBBQ6378-87-28 21:13:00 Test Item Value Reference Range Interpretation Comments B/C Ratio (test code = B/C Ratio) 30 6-25 H [facility] CampusAuujpqkRFDXDBACWD6881-98-65 21:13:00 Test Item Value Reference Range Interpretation Comments RBC Morph (test code = Normal (08/19/2011 N RBC Morph) 15:13:00) [facility] CampusKdonskcQTDNSSAWKJ5109-26-53 21:13:00 Test Item Value Reference Range Interpretation Comments Large Plt (test code = Slight *ABN*(08/19/2011 A Large Plt) 15:13:00) [facility] CampusKdggwadFXPPRVOHGE0721-35-45 21:13:00 Test Item Value Reference Range Interpretation Comments Atypical Lymphs (test code = Atypical 0.0 N Lymphs) [facility] CampusVchfinlYELQHEMABT6400-87-08 21:13:00 Test Item Value Reference Range Interpretation Comments Bands (test code = 0.0 See_Comment N [Automat ed message] The Bands) system which ge nerated this result transmit rohit reference range : <=11.0. The reference r leo was not used to interpr et this result as reji l/abnormal. [facility]manZstquxxSUBEFLMFS9504-84-27 21:13:00 Test Item Value Reference Range Interpretation Comments AST (test code = AST) 23 See_Comment N [Auto mated message] The system which ge nerated this result transmit rohit reference range : <=37. The reference range was not used to interpr et this result as reji l/abnormal. [facility]manEyhshmjTOSWFFUQB3455-26-92 21:13:00 Test Item Value Reference Range Interpretation Comments Bili Total (test code = Bili Total) 1.0 0.2-1.3 N [facility]manAuypsgxFLSPKHNWZ4843-86-73 21:13:00 Test Item Value Reference Range Interpretation Comments Alk Phos (test code = Alk Phos) 115 39-136 N [facility]manToqfyarGPLMUZVDT1062-46-26 21:13:00 Test Item Value Reference Range Interpretation Comments ALT (test code = ALT) 56 See_Comment N [Auto mated message] The system which ge nerated this result transmit rohit reference range : <=65. The reference range was not used to interpr et this result as reji l/abnormal. [facility]manMyapsalPEWKRJIIR9040-66-67 21:13:00 Test Item Value Reference Range Interpretation Comments Total Protein (test code = Total 9.0 6.4-8.4 H Protein) [facility]manXgrxxatBZANTQXRF4520-23-09 21:13:00 Test Item Value Reference Range Interpretation Comments Albumin Lvl (test code = Albumin Lvl) 4.8 3.5-5.0 N [facility]manUfuiuycIHCZXTZST5710-55-18 21:13:00 Test Item Value Reference Range Interpretation Comments Globulin (test code = Globulin) 4.2 2.0-4.0 H [facility]manHuklvqzCKUYOOUDY1878-61-37 21:13:00 Test Item Value Reference Range Interpretation Comments A/G Ratio (test code = A/G Ratio) 1.1 0.7-1.6 N [facility]manVwovvbvWHTTUZPSX6387-24-98 21:13:00 Test Item Value Reference Range Interpretation Comments B/C Ratio (test code = B/C Ratio) 30 6-25 H [facility] CampusRcqsyacMPYGYTHXRT5817-30-85 21:13:00 Test Item Value Reference Range Interpretation Comments RBC Morph (test code = Normal (08/19/2011 N RBC Morph) 15:13:00) [facility] CampusYxcnrvfRJLXHRVUFB5636-62-71 21:13:00 Test Item Value Reference Range Interpretation Comments Large Plt (test code = Slight *ABN*(08/19/2011 A Large Plt) 15:13:00) [facility] CampusFmriejnAAACUKDVFK2547-60-62 21:13:00 Test Item Value Reference Range Interpretation Comments Atypical Lymphs (test code = Atypical 0.0 N Lymphs) [facility] CampusTkfrrwvITTJAWTCAV3748-94-60 21:13:00 Test Item Value Reference Range Interpretation Comments Bands (test code = 0.0 See_Comment N [Automat ed message] The Bands) system which ge nerated this result transmit rohit reference range : <=11.0. The reference r leo was not used to interpr et this result as reji l/abnormal. [facility]manSklotjyQIQWNXWNN7347-08-91 21:13:00 Test Item Value Reference Range Interpretation Comments AST (test code = AST) 23 See_Comment N [Auto mated message] The system which ge nerated this result transmit rohit reference range : <=37. The reference range was not used to interpr et this result as reji l/abnormal. [facility]manHfsscgjIFOYHLVIQ5843-87-21 21:13:00 Test Item Value Reference Range Interpretation Comments Bili Total (test code = Bili Total) 1.0 0.2-1.3 N [facility]manIbpxgtoWOCRZNEGT0256-00-59 21:13:00 Test Item Value Reference Range Interpretation Comments Alk Phos (test code = Alk Phos) 115 39-136 N [facility]manTitaylsOVYDVLOUJ6932-82-68 21:13:00 Test Item Value Reference Range Interpretation Comments ALT (test code = ALT) 56 See_Comment N [Auto mated message] The system which ge nerated this result transmit rohit reference range : <=65. The reference range was not used to interpr et this result as reji l/abnormal. [facility]manKxbmfeqYLOFBUROJ1199-35-67 21:13:00 Test Item Value Reference Range Interpretation Comments Total Protein (test code = Total 9.0 6.4-8.4 H Protein) [facility]manSonmdnuFSSANWEBW3231-61-88 21:13:00 Test Item Value Reference Range Interpretation Comments Albumin Lvl (test code = Albumin Lvl) 4.8 3.5-5.0 N [facility]manOexlseiXFUWQMBUR8226-02-06 21:13:00 Test Item Value Reference Range Interpretation Comments Globulin (test code = Globulin) 4.2 2.0-4.0 H [facility]manTgurnpmEXWHGUMXP4775-31-56 21:13:00 Test Item Value Reference Range Interpretation Comments A/G Ratio (test code = A/G Ratio) 1.1 0.7-1.6 N [facility]manMajmssxGUPEHZVUJ0723-34-95 21:13:00 Test Item Value Reference Range Interpretation Comments B/C Ratio (test code = B/C Ratio) 30 6-25 H [facility] CampusIyqwowjQLIJXACNIG0312-81-94 21:13:00 Test Item Value Reference Range Interpretation Comments RBC Morph (test code = Normal (08/19/2011 N RBC Morph) 15:13:00) [facility] CampusEvuahlpHVXGLZEIOP2705-85-47 21:13:00 Test Item Value Reference Range Interpretation Comments Large Plt (test code = Slight *ABN*(08/19/2011 A Large Plt) 15:13:00) [facility] CampusWlzextdCCNKSBQJNR4374-57-52 21:13:00 Test Item Value Reference Range Interpretation Comments Atypical Lymphs (test code = Atypical 0.0 N Lymphs) [facility] CampusNsgeofeOVGDXSDNII7640-71-20 21:13:00 Test Item Value Reference Range Interpretation Comments Bands (test code = 0.0 See_Comment N [Automat ed message] The Bands) system which ge nerated this result transmit rohit reference range : <=11.0. The reference r leo was not used to interpr et this result as reji l/abnormal. [facility]manSzzvrrfIENLWBWZD7770-95-53 21:10:00 Test Item Value Reference Range Interpretation Comments O2 Sat Roberth (test code = O2 Sat Roberth) 74.0 40.0-70.0 H [facility]manCobmlpnRUONSCGRC8769-45-50 21:10:00 Test Item Value Reference Range Interpretation Comments Temp Roberth (test code = Temp Roberth) 37.0 [facility]manQgmderdNNSZLFZEL9006-54-15 21:10:00 Test Item Value Reference Range Interpretation Comments pO2 Roberth (test code = pO2 Roberth) 42 20-49 N [facility]manTmjfouwJIAUYREOS8359-43-18 21:10:00 Test Item Value Reference Range Interpretation Comments HCO3 Roberth (test code = HCO3 Roberth) 17.3 22.0-26.0 L [facility]manRsvrziyTVUGEHMLW8695-12-02 21:10:00 Test Item Value Reference Range Interpretation Comments pH Roberth (test code = pH Roberth) 7.34 7.28-7.42 N [facility]manWyvgmrcUMOKNLIFH1645-44-28 21:10:00 Test Item Value Reference Range Interpretation Comments pCO2 Roberth (test code = pCO2 Roberth) 32 38-52 L [facility]manZvobyftKPIEYGWWS3936-66-82 21:10:00 Test Item Value Reference Range Interpretation Comments BE Roberth (test code = -7 See_Comment L [Automa rohit message] The BE Roberth) system which ge nerated this result transmit rohit reference range : <=2. The reference range was not used to interpr et this result as reji l/abnormal. [facility]manBmzkypgZFTSCGILC5419-02-96 21:10:00 Test Item Value Reference Range Interpretation Comments O2 Sat Roberth (test code = O2 Sat Roberth) 74.0 40.0-70.0 H [facility]manVsrvnpoUXYXHWEKB2429-21-00 21:10:00 Test Item Value Reference Range Interpretation Comments Temp Roberth (test code = Temp Roberth) 37.0 [facility]manZsseudcRFSQBJPXW5204-77-81 21:10:00 Test Item Value Reference Range Interpretation Comments pO2 Roberth (test code = pO2 Roberth) 42 20-49 N [facility]manFinfgnlUQKGILYJQ6471-29-75 21:10:00 Test Item Value Reference Range Interpretation Comments HCO3 Roberth (test code = HCO3 Roberth) 17.3 22.0-26.0 L [facility]manTxuflgcESHROPUGW7525-71-53 21:10:00 Test Item Value Reference Range Interpretation Comments pH Roberth (test code = pH Roberth) 7.34 7.28-7.42 N [facility]LyiyqryILVLVOQUQ3111-09-84 21:10:00 Test Item Value Reference Range Interpretation Comments pCO2 Roberth (test code = pCO2 Roberth) 32 38-52 L [facility]manAhbrsjhGSZWKBBOH6405-12-35 21:10:00 Test Item Value Reference Range Interpretation Comments BE Roberth (test code = -7 See_Comment L [Automa rohit message] The BE Roberth) system which ge nerated this result transmit rohit reference range : <=2. The reference range was not used to interpr et this result as reji l/abnormal. [facility]manGtsnfgvSUBICXSRM2784-88-23 21:10:00 Test Item Value Reference Range Interpretation Comments O2 Sat Roberth (test code = O2 Sat Roberth) 74.0 40.0-70.0 H [facility]manSqvreghRLTPIYNXY3537-98-29 21:10:00 Test Item Value Reference Range Interpretation Comments Temp Roberth (test code = Temp Roberth) 37.0 [facility]manDkqfhczFGQTDPQAK8098-23-85 21:10:00 Test Item Value Reference Range Interpretation Comments pO2 Roberth (test code = pO2 Roberth) 42 20-49 N [facility]manVbovicaCPZASCYFT0205-86-36 21:10:00 Test Item Value Reference Range Interpretation Comments HCO3 Roberth (test code = HCO3 Roberth) 17.3 22.0-26.0 L [facility]manFhdcjxrEICJOQQIL5695-46-58 21:10:00 Test Item Value Reference Range Interpretation Comments pH Roberth (test code = pH Roberth) 7.34 7.28-7.42 N [facility]manTgkloziZNEQERUQC8326-58-47 21:10:00 Test Item Value Reference Range Interpretation Comments pCO2 Roberth (test code = pCO2 Roberth) 32 38-52 L [facility]manUvbtzigLXLGHEYYS5182-29-44 21:10:00 Test Item Value Reference Range Interpretation Comments BE Roberth (test code = -7 See_Comment L [Automa rohit message] The BE Roberth) system which ge nerated this result transmit rohit reference range : <=2. The reference range was not used to interpr et this result as reji l/abnormal. [id number] 21:10:00 Test Item Value Reference Range Interpretation Comments O2 Sat Roberth (test code = O2 Sat Roberth) 74.0 40.0-70.0 H [id number] 21:10:00 Test Item Value Reference Range Interpretation Comments Temp Roberth (test code = Temp Roberth) 37.0 [id number] 21:10:00 Test Item Value Reference Range Interpretation Comments pO2 Roberth (test code = pO2 Roberth) 42 20-49 N [id number] 21:10:00 Test Item Value Reference Range Interpretation Comments HCO3 Roberth (test code = HCO3 Rboerth) 17.3 22.0-26.0 L [id number] 21:10:00 Test Item Value Reference Range Interpretation Comments pH Roberth (test code = pH Roberth) 7.34 7.28-7.42 N [id number] 21:10:00 Test Item Value Reference Range Interpretation Comments pCO2 Roberth (test code = pCO2 Roberth) 32 38-52 L [id number] 21:10:00 Test Item Value Reference Range Interpretation Comments BE Roberth (test code = -7 See_Comment L [Automa rohit message] The BE Roberth) system which ge nerated this result transmit rohit reference range : <=2. The reference range was not used to interpr et this result as reji l/abnormal. [id number] 21:10:00 Test Item Value Reference Range Interpretation Comments O2 Sat Roberth (test code = O2 Sat Roberth) 74.0 40.0-70.0 H [facility][id number] 21:10:00 Test Item Value Reference Range Interpretation Comments Temp Roberth (test code = Temp Roberth) 37.0 [facility]FdjaaqsVPCLNOUFA3089-54-94 21:10:00 Test Item Value Reference Range Interpretation Comments pO2 Roberth (test code = pO2 Roberth) 42 20-49 N [facility][id number] 21:10:00 Test Item Value Reference Range Interpretation Comments HCO3 Roberth (test code = HCO3 Roberth) 17.3 22.0-26.0 L [facility]HhlgihmVZTHPHFDN3446-37-19 21:10:00 Test Item Value Reference Range Interpretation Comments pH Roberth (test code = pH Roberth) 7.34 7.28-7.42 N [facility]CmxkktrMCDUCMGWM0278-66-11 21:10:00 Test Item Value Reference Range Interpretation Comments pCO2 Roberth (test code = pCO2 Roberth) 32 38-52 L [facility]26 21:10:00 Test Item Value Reference Range Interpretation Comments BE Roberth (test code = -7 See_Comment L [Automa rohit message] The BE Roberth) system which ge nerated this result transmit rohit reference range : <=2. The reference range was not used to interpr et this result as reji l/abnormal. [facility] 20:34:00 Test Item Value Reference Range Interpretation Comments CDC-HIV 1/2 Ab (test Negative *NA*(08/19/2011 code = CDC-HIV 1/2 14:34:00) Ab) [facility]XM3423[facility]30-82 20:34:00 Test Item Value Reference Range Interpretation Comments CDC-HIV 1/2 Ab (test Negative *NA*(08/19/2011 code = CDC-HIV 1/2 14:34:00) Ab) [facility] Cent[id number] 20:34:00 Test Item Value Reference Range Interpretation Comments CDC-HIV 1/2 Ab (test Negative *NA*(08/19/2011 code = CDC-HIV 1/2 14:34:00) Ab) [facility] HospitalCzpxzxqPFWOYNMAPS3792-41-38 20:34:00 Test Item Value Reference Range Interpretation Comments CDC-HIV 1/2 Ab (test Negative *NA*(08/19/2011 code = CDC-HIV 1/2 14:34:00) Ab) [facility] Hospit[id number] 20:34:00 Test Item Value Reference Range Interpretation Comments CDC-HIV 1/2 Ab (test Negative *NA*(08/19/2011 code = CDC-HIV 1/2 14:34:00) Ab) [facility]
[2022-12-10] MEDS ORDERED: cloNIDine HCL 0.1 MG TAB ONE (01:05)
[2022-12-10] MEDS ORDERED: HYDRALAZINE HCL 25 MG TABLET ONE (01:05)
[2022-12-10] MEDS ORDERED: HYDROCODONE/APAP 10/325 TAB ONE (01:05)
--- NOTE | 2022-12-10 01:43 | ER ---
Nurse's Notes [facility] Name: Cathi Zaldivar Age: 42 yrs Sex: Female : 1980 Arrival Date: 12/09/2022 Time: 21:22 Bed 14 Private MD: Diagnosis: Presentation: 12/09 21:44 Chief complaint: Patient states: I has stomach pain and I am swollen that all started kd3 on Wednesday, i thought it would go down but it hasn't. I vomit foamy stuff. I got dialysis today and Wednesday. Coronavirus screen: Vaccine status: Patient reports being unvaccinated. Ebola Screen: No symptoms or risks identified at this time. Initial Sepsis Screen: Does the patient meet any 2 criteria? No. Patient's initial sepsis screen is negative. Does the patient have a suspected source of infection? No. Patient's initial sepsis screen is negative. Risk Assessment: Do you want to hurt yourself or someone else? Patient reports no desire to harm self or others. Onset of symptoms was December 09, 2022. 21:44 Method Of Arrival: Wheelchair kd3 21:44 Acuity: JESSICA 3 kd3 Triage Assessment: 21:47 General: Appears ill, Behavior is calm, cooperative. Pain: Complains of pain in kd3 abdomen. GI: Reports nausea, vomiting. Historical: - Allergies: 21:47 ambien; kd3 21:47 Codeine; kd3 21:47 GABAPENTIN; kd3 21:47 GUAIFENESIN; kd3 21:47 Lisinopril; kd3 21:47 Morphine; kd3 21:47 Nitrofurantoin Macrocrystal; kd3 21:47 PENICILLINS; kd3 21:47 Prolixin; kd3 21:47 Seroquel; kd3 21:47 Tape; kd3 21:47 zolpidem tartrate; kd3 - PMHx: 21:47 "mental problems"; cardiac arrest; CHF; cyclic vomiting syndrome; Diabetes - NIDDM; kd3 ENCEPHALOPATHY; Gastroparesis; liver failure; PERIPHERAL NEUROPATHY; Seizures; pseudo aneurysm R groin; Hypertension; Dialysis; m-w-f; chronic kidney disease; ibs; - PSHx: 21:47 dialysis catheter R chest wall; eye removed; section; kd3 - Immunization history:: Adult Immunizations up to date. - Social history:: Smoking status: Patient reports the use of cigarette tobacco products, denies chronic smoking, but will smoke occasionally. - Family history:: not pertinent. Screenin:46 Abuse screen: Denies threats or abuse. Nutritional screening: No deficits noted. vc1 Tuberculosis screening: No symptoms or risk factors identified. 12/10 00:[address] [facility] ED Fall Risk Assessment (Adult) History of falling in the last 3 months, vc1 including since admission No falls in past 3 months (0 pts) Confusion or Disorientation No (0 pts) Intoxicated or Sedated No (0 pts) Impaired Gait No (0 pts) Mobility Assist Device Used No (0 pt) Altered Elimination No (0 pt). Assessment: 12/09 22:00 Reassessment: No changes from previously documented assessment. Patient and/or family vc1 updated on plan of care and expected duration. Pain level reassessed. See triage assessment. 23:00 Reassessment: No changes from previously documented assessment. Patient and/or family vc1 updated on plan of care and expected duration. Pain level reassessed. 12/10 00:00 Reassessment: No changes from previously documented assessment. Patient and/or family vc1 updated on plan of care and expected duration. Pain level reassessed. 01:00 General: Appears in no apparent distress. Behavior is calm, cooperative. Neuro: Level kd3 of Consciousness is awake, alert, obeys commands, Oriented to person, place, time, situation. Cardiovascular: Capillary refill < 3 seconds Patient's skin is warm and dry. Respiratory: Airway is patent Trachea midline Respiratory effort is even, unlabored, Respiratory pattern is regular, symmetrical. 02:42 General: Pt request to sign out AMA. Provider arrived at the bedside to discuss risks kd3 of leaving AMA. Pt verbalizes understanding but still wanted to leave AMA. AMA paperwork signed and placed on the chart . 02:43 GI: Bowel sounds present X 4 quads. Abd is soft X 4 quads. kd3 Vital Signs: 12/09 21:44 BP 209 / 91; Pulse 74; Resp 20; Temp 98.9(O); Pulse Ox 96% on R/A; Weight 78.6 kg; kd3 Height 5 ft. 1 in. ; 22:41 BP 191 / 94; Pulse 75; Pulse Ox 99% on 2.5 lpm NC; vc1 12/10 00:00 BP 223 / 96; Pulse 78; Resp 20; Pulse Ox 100% ; vc1 01:01 Pulse 78; Pulse Ox 100% on R/A; kd3 02:13 BP 190 / 93; Resp 15; Pulse Ox 98% on R/A; kd3 12/09 21:44 Body Mass Index 32.74 (78.60 kg, 154.94 cm) kd3 ED Course: 12/09 21:36 Patient arrived in ED. ja2 21:36 Avel Kelley MD is Attending Physician. sp4 21:47 Triage completed. kd3 21:47 Arm band placed on right wrist. kd3 22:01 Radiology exam delayed due to test not completed at this time. eh4 22:15 Patient has correct armband on for positive identification. Bed in low position. Call vc1 light in reach. Pulse ox on. NIBP on. 22:15 CBC with Diff Sent. vc1 22:15 CMP Sent. vc1 22:15 Lipase Sent. vc1 22:15 No provider procedures requiring assistance completed. Inserted saline lock: 22 gauge vc1 in right ,using aseptic technique. breast. 22:41 CBC with Diff Sent. vc1 22:41 CMP Sent. vc1 22:41 Lipase Sent. vc1 12/10 00:06 CT Abd/Pelvis - Without Contrast In Process Unspecified. EDMS 00:57 Helen Justin, RN is Primary Nurse. kd3 01:14 US Abdomen Limited In Process Unspecified. EDMS 01:42 Chandler Bautista is Hospitalizing Provider. sp4 02:43 IV discontinued, intact, bleeding controlled, No redness/swelling at site. Pressure kd3 dressing applied. Administered Medications: 12/09 22:40 Drug: metoCLOPramide IVP 20 mg {Note: Right breast.} Route: IVP; Site: Other; vc1 12/10 02:44 Follow up: Response: No adverse reaction; Nausea is decreased kd3 12/09 22:40 Drug: Ondansetron IVP 8 mg {Note: Right breast.} Route: IVP; Site: Other; vc1 12/10 02:44 Follow up: Response: No adverse reaction; Nausea is decreased kd3 12/09 22:40 Drug: fentaNYL (PF) IVP 25 mcg {Note: right breast.} Route: IVP; Site: Other; vc1 12/10 02:44 Follow up: Response: No adverse reaction; Pain is decreased kd3 00:59 Drug: cloNIDine PO 0.1 mg Route: PO; vc1 02:45 Follow up: Response: No adverse reaction; Blood pressure is lowered kd3 01:00 Drug: [place] PO 10 mg-325 mg 1 tabs Route: PO; vc1 02:44 Follow up: Response: No adverse reaction; Pain is decreased kd3 01:00 Drug: HydrALAZINE PO 50 mg Route: PO; vc1 02:44 Follow up: Response: No adverse reaction; Blood pressure is lowered kd3 01:58 Drug: Rocephin - Rocephin (cefTRIAXone) IVPB 1 grams Route: IVPB; Infused Over: 30 kd3 mins; Site: Other; 02:28 Follow up: IV Status: Completed infusion; IV Intake: 50ml kd3 02:27 Drug: metroNIDAZOLE IVPB 500 mg Volume: 100 ml; Route: IVPB; Rate: 200 ml/hr; Infused kd3 Over: 30 mins; Site: Other; 02:44 Follow up: IV Status: Completed infusion; IV Intake: 100ml kd3 Medication: 00:35 VIS not applicable for this client. vc1 Intake: 02:28 IV: 50ml; Total: 50ml. kd3 02:44 IV: 100ml; Total: 150ml. kd3 Outcome: 01:43 Decision to Hospitalize by Provider. sp4 02:43 AMA AMA form signed kd3 02:43 Condition: stable 02:43 Discharge instructions given to patient, Instructed on the need for admit, Demonstrated understanding of instructions. 02:47 Patient left the ED. as6 Signatures: Dispatcher [employer] EDMS Ju Gonzalez Ashby, RN RN as6 Helen Justin RN RN kd3 Maria M Gonzalez RN RN vc1 [facility] Avel Kelley MD MD sp4
--- NOTE | 2022-12-10 01:44 | EDPHYS ---
Physician Documentation [facility] Name: Cathi Zaldivar Age: 42 yrs Sex: Female : 1980 Arrival Date: 12/09/2022 Time: 21:22 Bed 14 Private MD: ED Physician Avel Kelley HPI: 12/09 21:37 This 42 yrs old Female presents to ER via Unassigned with complaints of sp4 Abdominal Pain. 12/10 01:22 Very pleasant 42-year-old female with history of end-stage renal disease on sp4 hemodialysis every Wednesday. Improvement Rn Dr. Morin, history of diabetic gastroparesis, congestive heart failure, cyclic vomiting syndrome presents via private vehicle for acute worsening upper abdominal pain for the past 3 days associated with moderate vomiting.. Patient states the symptoms are typical of her gastroparesis.. Historical: - Allergies: 12/09 21:47 ambien; kd3 21:47 Codeine; kd3 21:47 GABAPENTIN; kd3 21:47 GUAIFENESIN; kd3 21:47 Lisinopril; kd3 21:47 Morphine; kd3 21:47 Nitrofurantoin Macrocrystal; kd3 21:47 PENICILLINS; kd3 21:47 Prolixin; kd3 21:47 Seroquel; kd3 21:47 Tape; kd3 21:47 zolpidem tartrate; kd3 - PMHx: 21:47 "mental problems"; cardiac arrest; CHF; cyclic vomiting syndrome; Diabetes - NIDDM; kd3 ENCEPHALOPATHY; Gastroparesis; liver failure; PERIPHERAL NEUROPATHY; Seizures; pseudo aneurysm R groin; Hypertension; Dialysis; m-w-f; chronic kidney disease; ibs; - PSHx: 21:47 dialysis catheter R chest wall; eye removed; section; kd3 - Immunization history:: Adult Immunizations up to date. - Social history:: Smoking status: Patient reports the use of cigarette tobacco products, denies chronic smoking, but will smoke occasionally. - Family history:: not pertinent. ROS: 12/10 01:22 Constitutional: Negative for fever, chills, and weight loss, Eyes: Negative for injury, sp4 pain, redness, and discharge, ENT: Negative for injury, pain, and discharge, Neck: Negative for injury, pain, and swelling, Cardiovascular: Negative for chest pain, palpitations, and edema, Respiratory: Negative for shortness of breath, cough, wheezing, and pleuritic chest pain, Abdomen/GI: Negative for diarrhea, and constipation, positive for abdominal pain nausea vomiting Back: Negative for injury and pain, : Negative for injury, bleeding, discharge, and swelling, MS/Extremity: Negative for injury and deformity, Skin: Negative for injury, rash, and discoloration, Neuro: Negative for headache, weakness, numbness, tingling, and seizure, Psych: Negative for depression, anxiety, Allergy/Immunology: Negative for hives, rash, and allergies Endocrine: Negative for neck swelling, polydipsia, polyuria, polyphagia, and weight changes Hematologic/Lymphatic: Negative for swollen nodes, abnormal bleeding, and unusual bruising Exam: 01:37 Constitutional: This is a well developed, well nourished patient who is awake, alert, sp4 and in no acute distress. Head/Face: Normocephalic, atraumatic. Eyes: Pupils equal round and reactive to light, extra-ocular motions intact. Lids and lashes normal. Conjunctiva and sclera are not injected. Cornea within normal limits. Periorbital areas with no swelling, redness, or edema. ENT: Nares patent. No nasal discharge, no septal abnormalities noted. Tympanic membranes are normal and external auditory canals are clear. Oropharynx with no redness, swelling, or masses, exudates, or evidence of obstruction, uvula midline. Mucous membranes moist. Neck: Trachea midline, no thyromegaly or masses palpated, and no cervical lymphadenopathy. Supple, full range of motion without nuchal rigidity, or vertebral point tenderness. Chest/axilla: Normal chest wall appearance and motion. Nontender with no deformity. No lesions are appreciated. Cardiovascular: Regular rate and rhythm with a normal S1 and S2. No gallops, murmurs, or rubs. Normal PMI, no JVD. No pulse deficits. Respiratory: Lungs have equal breath sounds bilaterally, clear to auscultation and percussion. No rales, rhonchi or wheezes noted. No increased work of breathing, no retractions or nasal flaring. Abdomen/GI: Soft, there is diffuse abdominal tenderness most pronounced in the epigastric region, no rigidity, no rebound, voluntary guarding present, hypoactive bowel sounds Back: No spinal tenderness. No costovertebral tenderness. Skin: Warm, dry with normal turgor. Normal color with no rashes, no lesions, and no evidence of cellulitis. MS/ Extremity: Pulses equal, no cyanosis. Neurovascular intact. Full, normal range of motion. Neuro: Awake and alert, GCS 15, oriented to person, place, time, and situation. Cranial nerves II-XII grossly intact. Motor strength 5/5 in all extremities. Sensory grossly intact. Psych: Awake, alert, with orientation to person, place and time. Behavior, mood, and affect are within normal limits Vital Signs: 12/09 21:44 BP 209 / 91; Pulse 74; Resp 20; Temp 98.9(O); Pulse Ox 96% on R/A; Weight 78.6 kg; kd3 Height 5 ft. 1 in. ; 22:41 BP 191 / 94; Pulse 75; Pulse Ox 99% on 2.5 lpm NC; vc1 12/10 00:00 BP 223 / 96; Pulse 78; Resp 20; Pulse Ox 100% ; vc1 01:01 Pulse 78; Pulse Ox 100% on R/A; kd3 02:13 BP 190 / 93; Resp 15; Pulse Ox 98% on R/A; kd3 12/09 21:44 Body Mass Index 32.74 (78.60 kg, 154.94 cm) kd3 MDM: 12/09 21:40 Patient medically screened. sp4 12/10 01:37 Differential Diagnosis flu, Gastroparesis, gastroenteritis, cholecystitis, sp4 pancreatitis.. 01:39 Data reviewed: vital signs, nurses notes, lab test result(s), amylase and lipase, CBC, sp4 drug level(s), electrolytes, hepatic panel, radiologic studies, CT scan, ultrasound. Consideration of Admission/Observation Patient was admitted/placed on observation. Escalation of care including admission/observation considered. Management of patient was discussed with the following: Hospitalist: Discussed with admitting team Dr. bautista. Recyclable Materials Sorter: Discussed with general surgery Dr. Tate. ED course: Patient's CAT scan has revealed cholelithiasis with gallbladder wall thickening and pericholecystic inflammation and fluid. If there is clinical concern for acute gallbladder pathology findings could be evaluated with ultrasound and HIDA scan. There is cardiomegaly with trace pericardial effusion. There is mild diffuse bladder wall thickening which may be secondary to cystitis. . ED course: Ultrasound has confirmed gallbladder wall thickening with presence of pericholecystic fluid also presence of gallstones consistent with acute cholecystitis.. . ED course: Patient was discussed with general surgeon Dr. Tate who accepted consult. Patient was discussed with admission team and was accepted for admission to Dr. Bautista . . 12/09 21:45 Order name: CBC with Diff; Complete Time: 00:19 sp4 12/09 21:45 Order name: CMP; Complete Time: 00:19 sp4 12/09 21:45 Order name: Lipase; Complete Time: 00:19 sp4 12/09 21:44 Order name: CT Abd/Pelvis - Without Contrast sp4 12/10 00:49 Order name: US Abdomen Limited sp4 12/09 21:45 Order name: IV Saline Lock; Complete Time: 22:15 sp4 12/09 21:45 Order name: Labs collected and sent; Complete Time: 22:15 sp4 12/09 21:46 Order name: PO challenge; Complete Time: 00:11 sp4 12/10 01:34 Order name: NPO; Complete Time: 01:58 sp4 Administered Medications: 12/09 22:40 Drug: metoCLOPramide IVP 20 mg {Note: Right breast.} Route: IVP; Site: Other; vc1 12/10 02:44 Follow up: Response: No adverse reaction; Nausea is decreased kd3 12/09 22:40 Drug: Ondansetron IVP 8 mg {Note: Right breast.} Route: IVP; Site: Other; vc1 12/10 02:44 Follow up: Response: No adverse reaction; Nausea is decreased kd3 12/09 22:40 Drug: fentaNYL (PF) IVP 25 mcg {Note: right breast.} Route: IVP; Site: Other; vc1 12/10 02:44 Follow up: Response: No adverse reaction; Pain is decreased kd3 00:59 Drug: cloNIDine PO 0.1 mg Route: PO; vc1 02:45 Follow up: Response: No adverse reaction; Blood pressure is lowered kd3 01:00 Drug: [place] PO 10 mg-325 mg 1 tabs Route: PO; vc1 02:44 Follow up: Response: No adverse reaction; Pain is decreased kd3 01:00 Drug: HydrALAZINE PO 50 mg Route: PO; vc1 02:44 Follow up: Response: No adverse reaction; Blood pressure is lowered kd3 01:58 Drug: Rocephin - Rocephin (cefTRIAXone) IVPB 1 grams Route: IVPB; Infused Over: 30 kd3 mins; Site: Other; 02:28 Follow up: IV Status: Completed infusion; IV Intake: 50ml kd3 02:27 Drug: metroNIDAZOLE IVPB 500 mg Volume: 100 ml; Route: IVPB; Rate: 200 ml/hr; Infused kd3 Over: 30 mins; Site: Other; 02:44 Follow up: IV Status: Completed infusion; IV Intake: 100ml kd3 Disposition Summary: 12/10/22 02:46 Left Against Medical Advice Location: Home(12/10/22 02:46) as6 Condition: Stable(12/10/22 02:46) as6 Signatures: Dispatcher [employer] EDTatiana Rogers RN RN cg Yuri Mathis RN RN as6 Helen Justin RN RN kd3 Maria M Gonzalez RN RN vc1 Avel Kelley MD MD sp4 Corrections: (The following items were deleted from the chart) 02:24 01:43 sp4 cg 02:41 02:24 207 cg as6 02:46 01:43 Inpatient Admission sp4 as6 02:46 01:43 CristyChandler vazquez sp4 as6 02:46 01:43 Telemetry/MedSurg (Inpatient) sp4 as6 02:46 01:43 Stable sp4 as6 02:46 01:43 new sp4 as6 02:46 01:43 are unchanged sp4 as6 02:46 01:43 Standard sp4 as6 02:46 01:43 Acute cholecystitis sp4 as6 02:46 01:43 End-stage renal disease, anemia associated with chronic kidney failure, chronic as6 anemia, physical deconditioning, intractable nausea and vomiting. sp4 02:46 02:41 as6 as6
[2022-12-10] MEDS ORDERED: CEFTRIAXONE 1000 MG/VIAL ONE (01:58)
[2022-12-10] MEDS ORDERED: METRONIDAZOLE 500mg IVPB 500 MG/100 ML BAG IV ONE (01:59)
[2022-12-10] MEDS ORDERED: NA CHLORIDE 0.9% 50 ML ONE (01:59)
--- NOTE | 2022-12-10 02:37 | P.CNS ---
Date of Consult: 12/10/22 Reason for Consult: Medical managment Requesting Physician: Avel Kelley Chief Complaint: Abdominal tenderness/acute cholecystitis History of Present Illness: Patient presented to the emergency department with abdominal pain, na usea/vomiting primarily right-sided. She was evaluated in the ER and found to have suspected acute cholecystitis. Allergies zolpidem tartrate [From Ambien] Allergy (Intermediate, Verified 10/17/16 23:08) Itching/Hives/Rash codeine [Codeine] Allergy (Verified 10/17/16 23:08) Hives fluphenazine enanthate [From Prolixin] Allergy (Verified 10/17/16 23:08) ARM NUMBNESS fluphenazine HCl [From Prolixin] Allergy (Verified 10/17/16 23:08) ARM NUMBNESS guaifenesin [From Prolex D] Allergy (Verified 10/17/16 23:08) Hives lisinopril Allergy (Verified 04/21/17 10:26) Anaphylaxis morphine Allergy (Verified 10/01/20 10:03) Itching Penicillins Allergy (Verified 10/17/16 23:08) Hives phenylephrine HCl [From Prolex D] Allergy (Verified 10/17/16 23:08) Hives nitrofurantoin Adverse Reaction (Verified 08/07/17 23:41) liver failure Home Medications: Furosemide [Lasix*] 80 mg PO BID 09/30/20 Buspirone HCl [Buspar] 1 tab PO BID 08/22/21 Diphenhydramine [Benadryl*] 25 mg PO Q6HP PRN #30 tab 09/10/21 Quetiapine Fumarate [Seroquel] 100 mg PO BEDTIME 10/09/21 Pantoprazole [Protonix Tab*] 40 mg PO DAILY #30 tab 03/25/22 Amlodipine [Norvasc*] 5 mg PO BID #60 tab 09/10/22 Ascorbate Calcium [Vitamin C] 500 mg PO BID #60 tab 09/10/22 Aspirin Chewable [Aspirin Chewable*] 81 mg PO DAILY #30 tab.chew 09/10/22 Calcitrol [Rocaltrol*] 0.5 mcg PO DAILY #60 cap 09/10/22 Clopidogrel Bisulfate [Plavix*] 75 mg PO DAILY #30 tab 09/10/22 Divalproex Sodium [Depakote] 1 tab PO BID #60 tab 09/10/22 Doxazosin [Cardura*] 2 mg PO BID #60 tab 09/10/22 Folic Acid/Vit B Complex and C [Dialyvite 800 Chewable Wafer] 800 mcg PO DAILY #30 tab.chew 09/10/22 Hydralazine HCl 50 mg PO TID #90 tab 09/10/22 Losartan Potassium [Cozaar*] 50 mg PO BID #60 tablet 09/10/22 Metoclopramide [Reglan*] 5 ml PO TID PRN #150 ml 09/10/22 Metoprolol Succinate [Toprol Xl*] 25 mg PO BID #60 tab 09/10/22 Nepro Shake [Nepro*] 237 ml PO TID #90 can 09/10/22 Pregabalin 25 mg PO DAILY #30 tab 09/10/22 Vitamin D [Drisdol*] 50,000 unit PO Q7D #4 cap 09/10/22 - Past Medical/Surgical History Diabetic: Yes -: Chronic Diastolic CHF -: ESRD on HD (Dr. Morin) -: Gastroporesis -: DM II with CKD, Polyneuropathy, Gastroparesis -: Obesity -: Schizoaffective Disorder -: HTN -: Post Traumatic Stress Disorder -: Hypertension -: Post traumatic stress disorder -: Schizoaffective disorder -: CHF, diastolic -: x 2 -: Tubal ligation -: Stents RUE, RLE & subclavian -: Right groin "aneurysm" -: RUE fistula for dialysis -: RUE fistula for dialysis Psychosocial/ Personal History: She is , she has 2 children, she does not work. She lives with her boyfriend and daughter. - Family History Mother Medical History: Hypertension, Diabetes, Cancer, Other (see notes) Notes: hypothyroid, asthma, breast cancer Father Medical History: Diabetes, Cancer Notes: - stomach/ lung/ prostate cancer, diabetes - Social History Smoking Status: Current some day smoker Alcohol use: No CD- Drugs: No Caffeine use: No Place of Residence: Home Review of Systems 10-point ROS is otherwise unremarkable Gastrointestinal: Nausea, Vomiting, Abdominal Pain Physical Examination General: Alert, In no apparent distress, Oriented x3, Obese HEENT: Atraumatic, PERRLA, Mucous membr. moist/pink, EOMI, Sclerae nonicteric Neck: Supple, 2+ carotid pulse no bruit, No LAD, Without JVD or thyroid abnormality Respiratory: Clear to auscultation bilaterally, Normal air movement Cardiovascular: Regular rate/rhythm, Normal S1 S2 Capillary refill: <2 Seconds Gastrointestinal: Normal bowel sounds, Tenderness (Mild right upper quadrant/epigastric tenderness) Musculoskeletal: No tenderness Integumentary: No rashes Neurological: Normal gait, Normal speech, Normal tone, Normal affect Laboratory Data (last 24 hrs) 12/09/22 22:15: Sodium 139, Potassium 3.5, BUN 20 H, Creatinine 4.60 H, Glucose 155 H, Total Bilirubin 0.6, AST 30, ALT 31, Alkaline Phosphatase 78, Lipase 38 12/09/22 22:15: WBC 3.70 L, Hgb 8.6 L, Hct 26.3 L, Plt Count 116 L Conclusions/Impression: Assessment: Abdominal tenderness-suspected acute cholecystitis ESRD on HD [facility] Chronic diastolic congestive heart failure Diabetes mellitus type 2 Hypertension Plan: Abdominal tenderness-suspected acute cholecystitis ESRD on HD [facility] Chronic diastolic congestive heart failure Diabetes mellitus type 2 Hypertension Initial plan was for admission, surgical consultation and possible cholecystectomy. I went to speak with patient and discussed the plan, after discussion she called her mother and they determined that they wanted a second opinion from another hospital. She elected to leave AGAINST MEDICAL ADVICE from our facility with plans to travel to [place] this morning. I counseled on the risk of leaving the hospital AGAINST MEDICAL ADVICE including the risk of worsening, . She acknowledged this and stated she would go to another hospital. She is of good decision-making capacity currently, her daughter will be driving her home. She is provided with imaging disc as well as reports. Critical Care: No Time Spent Managing Pts care (In Minutes): 35
[2022-12-10 03:34] VITALS: TEMP 98.9
[2022-12-10 03:38] VITALS: BP 190/93; O2SAT 98
--- NOTE | 2022-12-10 13:02 | RAD REPORT ---
EXAM DESCRIPTION: US - Abdomen Exam Limited - 12/10/2022 1:12 am CLINICAL HISTORY: 42 years, Female, RUQ pain COMPARISON: CT scan of the abdomen and pelvis performed 12/09/2022. TECHNIQUE: Utilizing a curved array transducer, real-time ultrasound evaluation of the abdominal vis cera was performed. Color Doppler imaging was used to assess vascular flow. FINDINGS: The visualized portions of the liver demonstrate no significant abnormalities. The gallbladder the presence of a cholelithiasis. There is gallbladder wall thickening and trace of p ericholecystic fluid. The common bile duct measures 4 mm. There is no biliary duct dictation. IMPRESSION: Cholelithiasis with gallbladder wall thickening and trace of pericholecystic fluid. Find ings are suspicious for acute cholecystitis. Electronically signed by: Huy Hummel MD 12/10/2022 1:45 AM CDT Due to temporary technical issues with the PACS/Fluency reporting system, reports are being signed by the in house radiologists without review as a courtesy to insure prompt reporting. The interpreting radiologist is fully responsible for the content of the report.
--- NOTE | 2022-12-10 14:13 | RAD REPORT ---
EXAM DESCRIPTION: CT - Abdomen Pelvis Wo Contrast - 12/10/2022 5:54 am CLINICAL HISTORY: The patient is 42 years old and is Female; ABD PAIN TECHNIQUE: Axial computed tomography images of the abdomen and pelvis without intravenous contrast. Sagittal and coronal reformatted images were created and reviewed. This CT exam was performed usi ng one or more of the following dose reduction techniques: automated exposure control, adjustment o f the mA and/or kV according to patient size, and/or use of iterative reconstruction technique. COMPARISON: CT Abdomen Pelvis dated June 15 2022 FINDINGS: LUNG BASES: Unremarkable. No mass. No consolidation. PLEURAL SPACE: Trace right pleural effusion is present. HEART: The heart is enlarged with a trace pericardial effusion. ABDOMEN: LIVER: Homogeneous without focal mass. GALLBLADDER AND BILE DUCTS: Gallstones are present within the gallbladder. Gallbladder wall thick ening and pericholecystic fluid is noted. PANCREAS: Unremarkable. No ductal dilation. SPLEEN: Unremarkable. ADRENALS: Unremarkable. No mass. KIDNEYS AND URETERS: The kidneys are atrophic. There is no hydronephrosis or hydroureter of eithe r kidney. No obstructing renal or ureteral calculus is seen. STOMACH AND BOWEL: The stomach is distended with food contents. The small bowel is relatively nor mal in caliber. A moderate amount stool is present throughout colon. There is no mucosal thickening o r evidence of obstruction. PELVIS: APPENDIX: The appendix is normal in caliber without surrounding inflammation. BLADDER: The bladder is incompletely distended. Bladder wall thickening with surrounding inflamma tion is noted. No stones. REPRODUCTIVE: A 2.9 cm left ovarian cyst present. No follow-up imaging is recommended. The uterus and right ovary are unremarkable. ABDOMEN and PELVIS: INTRAPERITONEAL SPACE: Free fluid is present within the pelvis which is likely physiologic. No free air. BONES/JOINTS: No acute fracture. SOFT TISSUES: The soft tissues are normal. VASCULATURE: Extensive atherosclerosis of the vasculature throughout the abdomen and pelvis is pr esent. No abdominal aortic aneurysm. LYMPH NODES: Unremarkable. No enlarged lymph nodes. IMPRESSION: 1. Cholelithiasis with gallbladder wall thickening and pericholecystic inflammation/fl uid. If there is clinical concern for acute gallbladder pathology, findings could be further evaluate d with ultrasound or HIDA scan. 2. Cardiomegaly with trace pericardial effusion. 3. Mild diffuse bladder wall thickening which may be secondary to cystitis. Electronically signed by: Emma Mai MD 12/10/2022 12:25 AM CDT Due to temporary technical issues with the PACS/Fluency reporting system, reports are being signed by the in house radiologists without review as a courtesy to insure prompt reporting. The interpreting radiologist is fully responsible for the content of the report.
== END 2022-12-10 02:49 | disposition left against medical advice (07) ==
LOC: ER 21:22 → 2ND 12-10 02:20
PROVIDERS: ADMIT Internal Medicine; ATTEND Internal Medicine
DX: R10.9 Unspecified abdominal pain (principal); E11.22 Type 2 diabetes mellitus with diabetic chronic kidney disease; I13.2 Hypertensive heart and chronic kidney disease with heart failure and with stage 5 chronic kidney disease, or end stage renal disease; I50.32 Chronic diastolic (congestive) heart failure; N18.6 End stage renal disease; Z99.2 Dependence on renal dialysis; Z53.29 Procedure and treatment not carried out because of patient's decision for other reasons
CPT/HCPCS: 85025; 36415; 83690; 80053; J2765; J3010; J2405; 74176; 76705; J0696

== ENCOUNTER 2022-12-25 14:12 | Inpatient (IN) | payer MEDICARE, OTHER ==
[2022-12-25] MEDS ORDERED: ONDANSETRON 4 MG/2 ML VIAL ONE ×2 (14:31→19:35)
--- OUTSIDE RECORDS SUMMARY | 2022-12-25 15:40 | XMS REPORT | Continuity of Care Document ---
:[address] [facility] t Address [address] [facility]. [address] [place] [address] Care Team Providers Name Role Phone Sharpless Primary Care Physician ZURDO CHILD Attending Clinician Unavailable VELMA TOLLIVER Attending Clinician Unavailable Daquan_giovanna Attending Clinician Unavailable Nodal_J Attending Clinician Unavailable Vladimir_Dinah Attending Clinician Unavailable RAJ WEST Attending Clinician Unavailable Jose Miguel Morin DO Attending Clinician Rosy BURNS, Brooke Ricci Attending Clinician [phone] Seth HOGUEC, Bessie Parks Attending Clinician [phone] Forrest Cruz Attending Clinician Unavailable Melany Gilbert Attending Clinician Pat BURNS, Sivan Brand Attending Clinician Isra BURNS, Rachel Lew Attending Clinician [phone] Robe BURNS, Holden Elmore Attending Clinician Magaly BURNS, Shanda Higuera Attending Clinician Endy BURNS, Aurelio Attending Clinician Alesia Dodd Attending Clinician Joe BURNS, Mando Raphael Attending Clinician [phone] Jose Carlos BURNS, Veto Vincent Attending Clinician Pati BURNS, Juwan Attending Clinician Sofi Roach MD Attending Clinician [phone] Robert MAYS, Gayle Attending Clinician Unavailable Frankie Chowdhury MD Attending Clinician Chandler Silverman Attending Clinician MD RACHEL BRASHER Attending Clinician Unavailable MD SHANDA SHAHID Attending Clinician Unavailable Leah Ureña MA Attending Clinician Unavailable Ba Attending Clinician Unavailable Tam MAYS, Maria M Attending Clinician Unavailable Anila Boles MA Attending Clinician Unavailable Sheikh KATY, Tom Attending Clinician Marilu Koch MD Attending Clinician Adam BURNS, Sukhjinder Argueta Attending Clinician Hanane Hernandes Attending Clinician MD JUWAN YOU Attending Clinician Unavailable Elodia Coombs RN Attending Clinician Unavailable Doctor Unassigned, [place] Attending Clinician Unavailable MONA BHAT Attending Clinician [...] Attending Clinician Earl Sanchez DO Attending Clinician BLACK DEJA A Attending Clinician Unavailable Ogshirley CASTANEDAM, Deja A Attending Clinician [phone] Pc, Adc Echo Room 1 - Attending [...] Attending Clinician ZEKE RUVALCABA Attending Clinician Unavailable Kory BURNS, Adán Nix Attending Clinician Aimee Frdeerick Attending Clinician Unavailable Hilaria BURNS, Gary Attending Clinician Brandon Holt MD Attending Clinician LY DORADO Attending Clinician Unavailable MOISE BHAKTA Attending Clinician Unavailable Luna Jamison Attending Clinician Joe Juárez Attending Clinician Atul Valdez Attending Clinician ZURDO CHILD Admitting Clinician Unavailable Sanya Admitting Clinician Unavailable Nodal_J Admitting Clinician Unavailable Deshazo_T Admitting Clinician Unavailable RACHEL BRASHER Admitting Clinician Unavailable MD RACHEL BRASHER Admitting Clinician Unavailable Adams_R Admitting Clinician Unavailable TOM BARBER Admitting Clinician Unavailable MD JUWAN YOU Admitting Clinician Unavailable Arun Espitia MD, Victor J Admitting Clinician [phone] Hui Wright Admitting Clinician HUI WRIGHT Admitting Clinician Unavailable Rei Waldron Admitting Clinician Unavailable MOISE BHAKTA Admitting Clinician Unavailable Danae Cha Admitting Clinician Joe Juárez Admitting Clinician Payers Payer Name Policy Type Policy Number Effective Date Expiration Date S karla MEDICARE PART A AND [id number] 2014 2021 B 00:00:00 00:00:[address] [facility] [id number] 2020 00:00:00 MEDICARE PART A \\T\\ [id number] 2014 B 00:00:00 [place] OF [place] [id number] 2020 00:00:[address] [facility] [id number] 2021 (MEDICARE 00:00:00 REPLACEMENT HMO) MEDICARE A B [id number] 2014 00:00:00 [place] [id number] 2016 00:00:00 Problems Condition Condition Condition Status Onset Resolution Last Treating Co mments Source Name Details Category Date Date Treatment Clinician Date AVF AVF Disease Active Univers (arteriove (arteriove 9-29 it y of nous nous 00:00: [place] fistula) fistula) 00 Medica l Branch GASTROPARE GASTROPAR Diagnosis Active 2021-02-10 [facility] HELENA/IBS-D ESISI/IBS- 7-16 21:41:00 l /ANEMIA D/ANEMIA 00:00: Vin Active 00 01/03/2021 [facility] End stage End stage Disease Active [facility] Malfunctio Malfunctio Disease Active Overview : Univers n of n of 6-03 Formattin ity of arterioven arterioven 00:00: g of this [place] ou ous note Medical dialysis dialysis might be Bran ch fistula, fistula, different initial initial from the encounter encounter original. Added automatic ally from request for surgery [id number] Candidiasi Candidiasi Disease Active U nivers s [...] [facility] Pyogenic Pyogenic Disease Active 2017-06 Overview: Un lori granuloma granuloma 0-17 Formattin i ty of of of 00:00: g of this [place] conjunctiv conjunctiv 00 note Me dical a, right a, right might be Bran ch different from the original. Added automatic ally from request for surgery [id number] Right eye Right eye Disease Active Overview: [...] involving for macula, macula, surgery associated associated [id number] with type with type 1 diabetes 1 diabetes mellitus mellitus Pain Pain Disease Active Univers management management 01-18 it y of 00:00: [place] 00 Medical Branch Blind Blind Disease Active Overview: Univer s painful painful 12-16 Formattin ity o f eye eye 00:00: g of this [place] 00 [...] Added automatic ally from request for surgery [id number] ESRD (end ESRD (end Disease Active Overview: Univers stage stage 6-12 Formattin ity of renal renal 00:00: g of this [place] disease) disease) 00 note Medica l on on might be Branch dialysis dialysis different from the original. Added automatic ally from request for surgery [id number] Diabetes Diabetes Disease Active Metho di mellitus [...] Added automatic ally from request for surgery [id number] Neovascula Neovascula Disease Active U nivers r r 1-18 ity of glaucoma, [place], [place] left [place] left eye 00 Medica l Branch Increased Increased Disease Active Uni vers intraocula intraocula 1-18 [place] pressure [place] Fall Fall Disease Active 2016-06 Univers 0-13 ity of 00:00: [place] [address] Medical Branch Pneumonia Pneumonia Disease Active 2016-06 Uni vers 0-11 ity of 00:00: [place] [address] Medical Branch Diabetes Diabetes Disease Active 2016-06 Overview: Un lori mellitus mellitus 0-05 Formattin ity of 00:00: g of this [place] 00 note Medical might be Branch different from the original. Added automatic ally from request for surgery [id number] Pseudotumo Pseudotumo Disease Active U nivers r cerebri r cerebri 9-25 ity of 00:00: [address] Branch SANJUANA (acute SANJUANA (acute Disease Recurre [facility] kidney nce 7[facility] injury) injury) 00:00: Medical 00 Center Ulcer of Ulcer of Disease Recurre [facility] toe of toe of nce 7[facility]16 [facility] left foot left foot 00:00: Medi tawnya 00 Center Hyperglyce Hyperglyce Disease Recurre [facility] [...] CKD Disease Active [facility] (chronic (chronic -[facility] kidney kidney 00:00: Medical disease) disease) 00 Center Acute Acute Disease Active [facility] encephalop encephalop -16 [facility] athy athy 00:00: Medical 00 Center Peripheral Peripheral Disease Active [facility] neuropathy neuropathy 16 [facility] 00:00: Medical 00 Center Cyclic Cyclic Disease Active [facility] vomiting vomiting 7-16 [facility] syndrome syndrome 00:00: Medica l 00 Center Anxiety Anxiety Disease Active [facility] 00[facility]: Medical 00 Center Hypertensi Hypertensi Disease Active [facility] ve ve 7[facility]16 [facility] emergency emergency 00:00: Medi tawnya 00 Center ACUTE RESP ACUTE Diagnosis [facility]09-[facility] FAILURE RESP 2- 09:11:00 l FAILURE 00:00: [place] Active 07/23/2016 [facility] CONGESTION CONGESTIO Diagnosis Active 2016-07-24 [facility] AMD N AMD 2- 01:49:00 l DIARRHEA DIARRHEA 00:00: Jake n Active 00 07/23/2016 [facility] SOB/SWELLI Diagnosis Active 2015-062016-06-10 [facility] NG SOB/SWELLI 08-11 15:48:00 l NG Active 00:00: Vin 06/10/2016 00 [facility] CHF/RENAL CHF/RENAL Diagnosis Active 2015-062016-06-24 [facility] DISEASE DISEASE 08-11 15:35:00 l Active 00:00: [place] 06/10/2016 00 [facility] Congestive Congestive Disease Active 2015-06 [facility] T heart heart - Health failure failure 00:00: (CHF) (CHF) 00 Obesity Obesity Disease Active 2015-06 Univers (BMI (BMI 0-12 ity of 30-39.9) 30-39.9) 00:00: [place] [address] Medical Branch Hyperosmol Hyperosmol Disease Active 2015-06 U viviana ar ar 0-12 ity of non-ketoti [place]ketoti [place] c state in 00 Me dical patient patient Branch with 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 Hyperglyce Hyperglyce Disease Active 2015-06 U viviana maryam maryam 0-11 ity of 00:00: [place] [address] Medical Branch Diabetic Diabetic Disease Active Unive rs ulcer of ulcer of 5-07 ity of both feet both feet 00:00: [place] associated associated 00 Me dical with type with type Bran ch 2 diabetes 2 diabetes mellitus mellitus SANJUANA (acute SANJUANA (acute Disease Active U viviana kidney kidney 5-07 ity of injury) injury) 00:00: [place] [address] Medical Branch Depression Depression Disease Active U [...] on, benign [place], benign [place] Family Family Disease Active 2014-06 Univers history of history of 1-13 it y of breast breast 00:00: [place] cancer in cancer in 00 [facility] female female Branch Family Family [...] ABDOMINAL 06-26 05:44:00 l SEIZURES PAIN, 00:00: [place] SEIZURES 00 Active 06/26/2013 [facility] ABD PAIN ABD PAIN Diagnosis Active 2012-062013-04-19 Memoria Active 0 21:51:00 l 04/14/2013 19:00: Jake gonzalez [address] GASTROPERI GASTROPER Diagnosis Active 2012-09-13 [facility] SIS DAISY 2-12 15:17:00 l Active 00:00: [place] 08/02/2012 00 [facility] ABDOMINAL Diagnosis Active 2012-03-14 [facility] PAIN ABDOMINAL 03-14 16:56:00 l PAIN 14:00: [place] Active 00 03/14/[address] [facility] NAUSEA, NAUSEA, Diagnosis Active 2012-03-14 [facility] VOMITING VOMITING 03-14 13:25:00 l Active 08:00: Vin 03/14/[address] [facility] N/V N/V Diagnosis Active 2011-12-08 Mem oria INABILITY INABILITY 11-27 11:14:00 l TO TO 00:00: [place] TOLERATE TOLERATE 00 PO PO Active 11/28/2011 [facility] VOMITTING VOMITTING Diagnosis Active 2011-11-28 Memoria Active 11-27 16:28:00 l 11/28/2011 00:00: Jake n [address] VOMITTING, Diagnosis Active 2011-09-18 [facility] HIGH BLOOD VOMITTING, 09-17 09:45:00 l SUGAR HIGH BLOOD 00:00: Jake n SUGAR 00 Active 09/18/2011 [facility] Methicilli Problem Active 2021-01-31 M ruperto n Methicilli 08-31 22:29:25 l resistant n 00:00: Vin 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
Problem added by Discern Expert. [facility] MRSA MRSA Problem Active 2012-03-16 Memor ia Active 08-31 09:11:30 l 09/01/2011 00:00: Jake n Problem 00 03/16/2012 <sup>1</oliveros p>09/01/11 - Elbow wound
<sup>2< /sup>Probl em added by Discern Expert. [facility] VOMITING, VOMITING, Diagnosis Active 2011-09-01 [facility] BLOOD BLOOD 08-30 03:19:00 l SUGAR SUGAR 00:00: [place] READINGS READINGS 00 HIGH HIGH Active 08/31/2011 [facility] ELBOW ELBOW Diagnosis Active 2011-09-10 [facility] oria ABSCESS/HY ABSCESS/HY 08-30 16:26:00 l PERGLYCEMI PERGLYCEMI 00:00: He rmann A A Active 00 08/31/2011 [facility] Hypokalemi Hypokalem Problem Active 2012-03-16 Memoria a ia Active 08-22 09:11:30 l 08/23/2011 00:00: Jake gnozalez Problem 00 03/16/2012 [facility] DKA DKA Diagnosis Active 2011-08-24 Mem oria Active 11:27:00 l 08/19/2011 00:00: Jake gonzalez [address] VOMITING VOMITING Diagnosis Active 2011-08-19 Memoria Active 16:21:00 l 08/19/2011 00:00: Jake gonzalez [address] Final: Final: Problem 2016-08-02 [facility] janice Acute Acute 02:46:22 l respirator respirator He rmann y failure, y failure, unspecifie unspecifie d whether d whether with with hypoxia or hypoxia or hypercapni hypercapni a a 08/02/2016 [facility] Hypoglycem Hypoglyce Problem Inactiv 2012-03-16 Memoria ia maryam e 09:11:30 l Inactive [place] Problem 03/16/2012 [facility] Hypoglycem Hypoglyce Problem Inactiv 2013-04-22 Memoria ia maryam e 04:46:33 l (disorder) (disorder) He rmann Inactive Problem 04/22/[address] [facility] Gastropare Gastropar Problem Resolve 2021-01-31 Memoria sis esis d 22:29:25 l (disorder) (disorder) He rmann Resolved Problem 01/31/2021 [facility] Hypertensi Problem Resolve 2021-01-31 Memoria ve Hypertensi d 22:29:25 l disorder, ve [place] systemic disorder, arterial systemic (disorder) arterial (disorder) Resolved Problem 01/31/2021 [facility] Psychiatri Psychiatr Problem Resolve 2021-01-31 Memoria c ic d 22:29:25 l behavioral behavioral He rmann disability disability (finding) (finding) Resolved Problem 01/31/2021 [facility] Seizure Seizure Problem Resolve 2021-01-31 M emojanice (finding) (finding) d 22:29:25 l Resolved Vin Problem 01/31/2021 [facility] Hypertensi Hypertens Problem Active 2012-03-16 Memoria on ion Active 09:11:30 l Problem Vin 03/16/2012 [facility] Hypomagnes Hypomagne Problem Active 2013-04-22 Memoria emia semia 04:46:33 l Active [place] Problem 04/22/2013 [facility] Nausea and Nausea Problem Active 2012-03-16 Mem[facility] vomiting and 09:11:30 l vomiting [place] Active Problem 03/16/2012 [facility] ENCNTR FOR ENCNTR Diagnosis Active 2020-12-24 Mem[facility] GENERAL FOR 10:39:00 l ADULT GENERAL [place] MEDICAL ADULT EXAM W/ MEDICAL EXAM W/ Active [facility] DMI DMI Diagnosis Active 2011-08-24 Mem oria KETOACD KETOACD 11:27:00 l UNCONTROLD UNCONTROLD He rmann Active [facility] OTHER OTHER Diagnosis Active 2011-09-10 Mem oria GENERAL GENERAL 16:26:00 l SYMPTOMS SYMPTOMS Jake n Active [facility] HEART HEART Diagnosis Active 2016-06-24 Mem oria FAILURE, FAILURE, 15:35:00 l UNSPECIFIE UNSPECIFIE He ally D D Active [facility] ACUTE ACUTE Diagnosis Active 2016-09-09 Mem oria RESPIRATOR RESPIRATOR 09:11:00 l Y FAILURE, Y FAILURE, He ally UNSP W UNSP W HYPOXI HYPOXI Active [facility] Nausea and Nausea Problem Resolve 2021-01-31 2021-01-31 Memoria vomiting and d 6-10 22:29:25 22:29:25 l (disorder) vomiting 00:00: Herm naeem (disorder) 00 Resolved 11/29/2011 Problem 01/31/2021 [facility] Hypokalemi Hypokalem Problem Resolve 2021-01-31 2021-01-31 Memoria a ia d 3-04 22:29:25 22:29:25 l (disorder) (disorder) 00:00: He rmann Resolved 00 08/23/2011 Problem 01/31/2021 [facility] Disorder Disorder Problem Resolve 2021-01-31 2021-01-31 Memoria of of d 08-22 22:29:25 22:29:25 l magnesium magnesium 00:00: Herm naeem metabolism metabolism 00 (disorder) (disorder) Resolved 08/23/2011 Problem 01/31/2021 [facility] Hyperglyce Hyperglyc Problem Resolve 2021-01-31 2021-01-31 Memoria maryam emia d 08-19 22:29:25 22:29:25 l (disorder) (disorder) 00:00: He jagdishann Resolved 00 08/20/2011 Problem 01/31/2021 [facility] Ketoacidos Problem Resolve 2021-01-31 2021-01-31 Memoria is in Ketoacidos d 22:29:25 22:29:25 l diabetes is in 00:00: Vin mellitus diabetes 00 (disorder) mellitus (disorder) Resolved 08/19/2011 Problem 01/31/2021 [facility] DKA DKA Problem Resolve 2013-04-22 2013-04-22 Memoria (diabetic (diabetic d 04:46:33 04:46:33 l ketoacidos ketoacidos 00:00: Tyrel canales es) es) 00 Resolved 08/19/2011 Problem 04/22/2013 [facility] History of Past Illness Condition Condition Condition Status Onset Resolution Last Treating Co mments Source Name Details Category Date Date Treatment Clinician Date Discharge Discharge Problem 2014-06-28 2014-06-28 Memoria Diagnosis: Diagnosis: 1 16:34:37 16:34:37 l Gastropare Gastropare 06:00: Tyrel canales sis sis 00 06/26/2014 06/28/2014 [facility] Hyperglyce Hyperglyc Problem Inactiv 2012-03-16 2012-03-16 Memoria maryam live e 08-19 09:11:30 09:11:30 l Inactive 00:00: Vin 08/20/2011 00 Problem 03/16/2012 [facility] Allergies, Adverse Reactions, Alerts Allergy [...] EH ANTOIN 01-03 MONOHYD/ 00:00: M-CRYST 00 Penicill Drug Active Shortness Of [facility] [...] GUAIFENE Allergy Active Other [facility] Guaifene Propensi [...] Branch drug ZOLPIDEM DRUG Active Med Other-C[facility]nt [facility] ers TARTRATE INGREDI 06-23 ity of 00:00: [...] Comments) , Other - See commentsn umbness Guaifene Allergy Active Hives Other [place] to 12-30 reaction( Health substanc 00:00: s): Other e 00 (See Comments) , Other (see comments) , Other (See Comments) , Other (See Comments) , Other - See commentsn [facility] bnessnumb jaimesnericn travonnahomi ssnumbnes s PROLEX DRUG Active Other-Cmnt Univer s 7-12 ity of 00:00: [place] 00 Medical Branch [...] 00 Medical Branch penicill Drug Active [facility] lisinopr Drug Active [facility] Ambien Drug Active [facility] Prolixin Drug Active [facility] penicill Drug Active [facility] lisinopr Drug Active [facility] Ambien Drug Active [facility] Prolixin Drug Active [facility] Tape Other Active [facility] penicill Drug Active [facility] lisinopr Drug Active [facility] Ambien Drug Active [facility] Prolixin Drug Active [facility] codeine Drug Active [facility] penicill Drug Active [facility] lisinopr Drug Active [facility] Ambien Drug Active [facility] Prolixin Drug Active [facility] codeine Drug Active [facility] penicill Drug [facility] lisinopr Drug Active [facility] Ambien Drug Active [facility] Prolixin Drug Active [facility] penicill Drug Active [facility] lisinopr Drug Active . [facility] Ambien Drug Active [facility] Prolixin Drug Active [facility] penicill penicill Active Memori a ins ins l [place] penicill Drug Active . [facility] codeine codeine Active Memoria l Vin morphine morphine Active Memori a l [place] lisinopr lisinopr Active Memori a il il l Vin Adhesive Adhesive Active Memori a Tape Tape l Vin Ambien Ambien Active Memoria l [place] Prolex Prolex Active Memoria DM DM l Vin lisinopr Drug Active [facility] Ambien Drug Active [facility] Prolixin Drug Active [facility] Social History Social Habit Start Date Stop Date Quantity Comments Source Gender identity [facility] of tobacco Cigarette [facility] Exposure to Yes [facility] SARS-CoV-2 (event) Hospit al History of Social 2022-08-25 2022-08-[address] function 00:00:00 00:00:00 Hospital Tobacco use and 2021-05-14 2021-05-14 Smokeless [facility] exposure 00:00:00 00:00:00 tobacco non-user Hospital Social History 2020-12-24 2020-12-24 [facility] 15:49:37 15:49:37 Alcohol intake 2017-12-17 2017-12-[address] [facility] 00:[facility] 00:[facility]:00 non-drinker of Medical Ce nter alcohol (finding) Cigarettes smoked 2017-01-03 2017-01-[address] [facility] current (pack per 00:00:00 00:00:00 Medical Center day) - Reported Cigarette 2017-01-03 2017-01-[address] [facility] pack-years 00:00:00 00:00:00 [facility] Tobacco Comment 2017-01-03 2017-01-03 [facility] she stopped [address] month ago. Sex Assigned At [address] [facility] 00:[facility] Smoking Status Start Date Stop Date Source Smokes tobacco daily 2021-05-14 00:00:00 [facility] Former smoker 2020-06-27 00:00:00 2020-06-27 00:00:00 [facility] Medications Ordered Filled Start Stop Current Ordering Indication Dosage Frequency Signature Comments Components Source Medication Medication Date Date Medication? Clinician (SIG) Name Name glipiZIDE Yes 5mg Take 5 mg Met hodi (GLUCOTROL) 1-[address] 5 MG tablet 13:02: daily. Hosp jo-ann 39 l calcium 2021-0 Yes 667mg Q.[id number] Take 667 Methodi acetate 1-[id number] (PHOSLO) 13:02: 3D mouth [...] 39 nightly. l calcium 0 Yes 1334mg Q.[id number] Take 1,334 [facility] acetate,domingo 1-18 [id number] mg by s t sphat bind, 13:02: 3D mouth 3 Hos whit (Phoslyra) 39 (three) l 667 mg (169 times a mg day. calcium)/5 mL solution cyproheptad 0 Yes 4mg Q.[id number] Take 4 mg Methodi ine 1-18 [id number] mouth [address] (PERIACTIN) 13:02: 3D (three) Hos whit 4 mg tablet 39 times a l day as needed for allergies. buPROPion 0 Yes 300mg QD Take 300 Met hodi XL 1-[address] (WELLBUTRIN 13:02: mouth Hospi ta XL) 300 MG 39 daily. l 24 hr tablet ascorbic 2021-0 Yes 500mg Q.[id number] Take 500 Method[facility] acid, 1-[id number] vitamin C, 13:02: 3D mouth 3 Hosp jo-ann (ascorbic 39 (three) l acid with times a sia hips) day. 500 MG tablet clonAZEPAM 2021-0 Yes .5mg Take 0.5 Met hodi (KlonoPIN) 1-[address] 0.5 MG 13:02: mouth as Hospita tablet 39 needed for l anxiety. calcium 2021-0 Yes 1334mg Q.[id number] Take 1,334 Methodi acetate,domingo 1-18 [id number] mg by s t sphat bind, 13:02: 3D mouth 3 Hos whit (Phoslyra) 39 (three) l 667 mg (169 times a mg day. calcium)/5 mL solution cyproheptad 2021-0 Yes 4mg Q.[id number] Take 4 mg Methodi ine 1-18 [id number] mouth [address] (PERIACTIN) 13:02: 3D (three) Hos whit 4 mg tablet 39 times a l day as needed for allergies. buPROPion 2021-0 Yes 300mg QD Take 300 Met hodi XL 1-[address] (WELLBUTRIN 13:02: mouth Hospi ta XL) 300 MG 39 daily. l 24 hr tablet ascorbic 2021-0 Yes 500mg Q.[id number] Take 500 Methodi acid, 1-[id number] vitamin C, 13:02: 3D [...] jo-ann 39 l calcium 2021-0 Yes 667mg Q.[id number] Take 667 Methodi acetate 1-[id number] (PHOSLO) 13:02: 3D mouth [...] 39 nightly. l calcium 2-0 Yes 1334mg Q.[id number] Take 1,334 Methodi acetate,domingo 1-18 [id number] mg by s t sphat bind, 13:02: 3D mouth 3 Hos whit (Phoslyra) 39 (three) l 667 mg (169 times a mg day. calcium)/5 mL solution cyproheptad 2021-0 Yes 4mg Q.[id number] Take 4 mg Methodi ine 1-[id number] mouth [address] (PERIACTIN) 13:02: 3D (three) Hos whit 4 mg tablet 39 times a l day as needed for allergies. buPROPion 2021-0 Yes 300mg QD Take 300 Met hodi XL 1-[address] (WELLBUTRIN 13:02: mouth Hospi ta XL) 300 MG 39 daily. l 24 hr tablet ascorbic 2021-0 Yes 500mg Q.[id number] Take 500 Methodi acid, 1-[id number] vitamin C, 13:02: 3D [...] jo-ann 39 l calcium 2021-0 Yes 667mg Q.[id number] Take 667 Methodi acetate 1-[id number] (PHOSLO) 13:02: 3D mouth [...] 39 nightly. l calcium 2021-0 Yes 1334mg Q.[id number] Take 1,334 Methodi acetate,domingo 1-18 [id number] mg by s t sphat bind, 13:02: 3D mouth 3 Hos whit (Phoslyra) 39 (three) l 667 mg (169 times a mg day. calcium)/5 mL solution cyproheptad 2021-0 Yes 4mg Q.74482715 Take 4 mg [facility] ine 1-18 [id number] by mouth [address] (PERIACTIN) 13:02: 3D (three) Hos whit 4 mg tablet 39 times a l day as needed for allergies. buPROPion 2022-0 Yes 300mg QD Take 300 Met hodi XL 1-[address] (WELLBUTRIN 13:02: mouth Hospi ta XL) 300 MG 39 daily. l 24 hr tablet ascorbic 2022-0 Yes 500mg Q.81638135 Take 500 [facility] acid, 1-[id number] vitamin C, 13:02: 3D [...] jo-ann 39 l calcium 2021-0 Yes 667mg Q.24525839 Take 667 [facility] acetate 1-[id number] (PHOSLO) 13:02: 3D mouth [...] 39 nightly. l calcium 2021-0 Yes 1334mg Q.09275266 Take 1,334 Methodi acetate,domingo 1-18 [id number] mg by s t sphat bind, 13:02: 3D mouth 3 Hos whit (Phoslyra) 39 (three) l 667 mg (169 times a mg day. calcium)/5 mL solution cyproheptad 2021-0 Yes 4mg Q.04865154 Take 4 mg [facility] ine 1-18 [id number] by mouth [address] ([facility]IACTIN) 13:02: 3D (three) Hos whit 4 mg tablet 39 times a l day as needed for allergies. buPROPion 2021-0 Yes 300mg QD Take 300 Met hodi XL 1-[address] ([facility]TR[facility] 13:02: mouth Hospi ta XL) 300 MG 39 daily. l 24 hr tablet ascorbic 2021-0 Yes 500mg Q.85222210 Take 500 [facility] acid, 1-[address] vitamin C, 13:02: 3D [...] jo-ann 39 l calcium 2021-0 Yes 667mg Q.51051857 Take 667 [facility] acetate 1-[id number] (PHOSLO) 13:02: 3D mouth [...] 39 nightly. l calcium 0 Yes 1334mg Q.46803392 Take 1,334 Methodi acetate,domingo 1-18 [id number] mg by s t sphat bind, 13:02: 3D mouth 3 Hos whit (Phoslyra) 39 (three) l 667 mg (169 times a mg day. calcium)/5 mL solution cyproheptad 0 Yes 4mg Q.47782712 Take 4 mg [facility] ine -18 [id number] by mouth [address] ([facility]IACTIN) 13:02: 3D (three) Hos whit 4 mg tablet 39 times a l day as needed for allergies. buPROPion 0 Yes 300mg QD Take 300 Met hodi XL 1-[address] ([facility] 13:02: mouth Hospi ta XL) 300 MG 39 daily. l 24 hr tablet ascorbic 2021-0 Yes 500mg Q.93856265 Take 500 [facility] acid, 1-[address] vitamin C, 13:02: 3D [...] jo-ann 39 l calcium 2021-0 Yes 667mg Q.69851901 Take 667 [facility] acetate 1-[id number] (PHOSLO) 13:02: 3D mouth [...] 39 nightly. l calcium 2021-0 Yes 1334mg Q.66240286 Take 1,334 Methodi acetate,domingo 1-18 [id number] mg by s t sphat bind, 13:02: 3D mouth 3 Hos whit (Phoslyra) 39 (three) l 667 mg (169 times a mg day. calcium)/5 mL solution cyproheptad 2021-0 Yes 4mg Q.93710113 Take 4 mg [facility] ine 1-18 [id number] [address] mouth [address] ([facility]IACTIN) 13:02: 3D (three) Hos whit 4 mg tablet 39 times a l day as needed for allergies. buPROPion 2021-0 Yes 300mg QD Take 300 Met hodi XL 1-[address] ([facility] 13:02: mouth Hospi ta XL) 300 MG 39 daily. l 24 hr tablet ascorbic 2021-0 Yes 500mg Q.85692595 Take 500 [facility] acid, 1-[id number] vitamin C, 13:02: 3D [...] jo-ann 39 l calcium 2022-0 Yes 667mg Q.20882665 Take 667 [facility] acetate 1-[id number] (PHOSLO) 13:02: 3D mouth [...] 39 nightly. l calcium 2021-0 Yes 1334mg Q.17251329 Take 1,334 Methodi acetate,domingo 1-18 [id number] mg by s t sphat bind, 13:02: 3D mouth 3 Hos whit (Phoslyra) 39 (three) l 667 mg (169 times a mg day. calcium)/5 mL solution cyproheptad 2021-0 Yes 4mg Q.60932036 Take 4 mg [facility] ine 1-18 [id number] [address] mouth [address] ([facility]CTIN) 13:02: 3D (three) Hos whti 4 mg tablet 39 times a l day as needed for allergies. buPROPion 2021-0 Yes 300mg QD Take 300 Met hodi XL 1-[address] ([facility] 13:02: mouth Hospi ta XL) 300 MG 39 daily. l 24 hr tablet ascorbic 2021-0 Yes 500mg Q.33977015 Take 500 [facility] acid, 1-[id number] vitamin C, 13:02: 3D [...] jo-ann 39 l calcium 2022-0 Yes 667mg Q.46340538 Take 667 [facility] acetate 1-[id number] (PHOSLO) 13:02: 3D mouth [...] 39 nightly. l calcium 2021-0 Yes 1334mg Q.25193202 Take 1,334 Methodi acetate,domingo 1-18 [id number] mg by s t sphat bind, 13:02: 3D mouth 3 Hos whit (Phoslyra) 39 (three) l 667 mg (169 times a mg day. calcium)/5 mL solution cyproheptad 2021-0 Yes 4mg Q.59820216 Take 4 mg [facility] ine 1-18 [id number] [address] mouth [address] ([facility]CTIN) 13:02: 3D (three) Hos whit 4 mg tablet 39 times a l day as needed for allergies. buPROPion 2021-0 Yes 300mg QD Take 300 Met hodi XL 1-[address] ([facility] 13:02: mouth Hospi ta XL) 300 MG 39 daily. l 24 hr tablet ascorbic 2021-0 Yes 500mg Q.72395913 Take 500 [facility] acid, 1-[id number] vitamin C, 13:02: 3D [...] jo-ann 39 l calcium 2021-0 Yes 667mg Q.13842101 Take 667 [facility] acetate 1-[id number] (PHOSLO) 13:02: 3D mouth [...] 39 nightly. l calcium 2-0 Yes 1334mg Q.81791689 Take 1,334 Methodi acetate,domigno 1-18 [id number] mg by s t sphat bind, 13:02: 3D mouth 3 Hos whit (Phoslyra) 39 (three) l 667 mg (169 times a mg day. calcium)/5 mL solution cyproheptad 2021-0 Yes 4mg Q.10683752 Take 4 mg [facility] ine 1-18 [id number] [address] mouth [address] ([facility]IACTIN) 13:02: 3D (three) Hos whit 4 mg tablet 39 times a l day as needed for allergies. buPROPion 2021-0 Yes 300mg QD Take 300 Met hodi XL 1-[address] ([facility] 13:02: mouth Hospi ta XL) 300 MG 39 daily. l 24 hr tablet ascorbic 2021-0 Yes 500mg Q.81238536 Take 500 [facility] acid, 1-[id number] vitamin C, 13:02: 3D [...] jo-ann 39 l calcium 2021-0 Yes 667mg Q.01460937 Take 667 [facility] acetate 1-[id number] (PHOSLO) 13:02: 3D mouth [...] 39 nightly. l calcium 2021-0 Yes 1334mg Q.25015358 Take 1,334 Methodi acetate,domingo 1-18 [id number] mg by s t sphat bind, 13:02: 3D mouth 3 Hos whit (Phoslyra) 39 (three) l 667 mg (169 times a mg day. calcium)/5 mL solution cyproheptad 2021-0 Yes 4mg Q.26596065 Take 4 mg [facility] ine 1-18 [id number] [address] mouth [address] ([facility]CTIN) 13:02: 3D (three) Hos whit 4 mg tablet 39 times a l day as needed for allergies. buPROPion 2022-0 Yes 300mg QD Take 300 Met hodi XL 1-[address] ([facility] 13:02: mouth Hospi ta XL) 300 MG 39 daily. l 24 hr tablet ascorbic 2022-0 Yes 500mg Q.54245585 Take 500 [facility] acid, 1-[id number] vitamin C, 13:02: 3D [...] jo-ann 39 l calcium 2021-0 Yes 667mg Q.45294050 Take 667 [facility] acetate 1-[id number] (PHOSLO) 13:02: 3D mouth [...] 39 nightly. l calcium 2021-0 Yes 1334mg Q.33165867 Take 1,334 Methodi acetate,domingo 1-18 [id number] mg by s t sphat bind, 13:02: 3D mouth 3 Hos whit (Phoslyra) 39 (three) l 667 mg (169 times a mg day. calcium)/5 mL solution cyproheptad 2021-0 Yes 4mg Q.37739109 Take 4 mg [facility] ine 1-18 [id number] [address] mouth [address] ([facility]IN) 13:02: 3D (three) Hos whit 4 mg tablet 39 times a l day as needed for allergies. buPROPion 2021-0 Yes 300mg QD Take 300 Met hodi XL 1-[address] ([facility] 13:02: mouth Hospi ta XL) 300 MG 39 daily. l 24 hr tablet ascorbic 2021-0 Yes 500mg Q.41472600 Take 500 [facility] acid, 1-[id number] vitamin C, 13:02: 3D [...] jo-ann 39 l calcium 2021-0 Yes 667mg Q.26611748 Take 667 [facility] acetate 1-[id number] (PHOSLO) 13:02: 3D mouth [...] 39 nightly. l calcium 2021-0 Yes 1334mg Q.95283670 Take 1,334 Methodi acetate,domingo 1-18 [id number] mg by s t sphat bind, 13:02: 3D mouth 3 Hos whit (Phoslyra) 39 (three) l 667 mg (169 times a mg day. calcium)/5 mL solution cyproheptad 2021-0 Yes 4mg Q.07161262 Take 4 mg [facility] ine 1-18 [id number] by mouth [address] ([facility]CTIN) 13:02: 3D (three) Hos whit 4 mg tablet 39 times a l day as needed for allergies. buPROPion 2021-0 Yes 300mg QD Take 300 Met hodi XL 1-[address] ([facility] 13:02: mouth Hospi ta XL) 300 MG 39 daily. l 24 hr tablet ascorbic 2-0 Yes 500mg Q.88517709 Take 500 [facility] acid, 1-[id number] vitamin C, 13:02: 3D [...] jo-ann 39 l calcium 202-0 Yes 667mg Q.39301827 Take 667 [facility] acetate 1-[id number] (PHOSLO) 13:02: 3D mouth [...] 39 nightly. l calcium 2021-0 Yes 1334mg Q.46395787 Take 1,334 Methodi acetate,domingo 1-18 [id number] mg by s t sphat bind, 13:02: 3D mouth 3 Hos whit (Phoslyra) 39 (three) l 667 mg (169 times a mg day. calcium)/5 mL solution cyproheptad 2021-0 Yes 4mg Q.86158382 Take 4 mg [facility] ine 1-18 [id number] [address] mouth [address] (PERIACTIN) 13:02: 3D (three) Hos whit 4 mg tablet 39 times a l day as needed for allergies. buPROPion 2021-0 Yes 300mg QD Take 300 Met hodi XL 1-[address] ([facility] 13:02: mouth Hospi ta XL) 300 MG 39 daily. l 24 hr tablet ascorbic 2021-0 Yes 500mg Q.33945744 Take 500 [facility] acid, 1-[id number] vitamin C, 13:02: 3D [...] jo-ann 39 l calcium 2-0 Yes 667mg Q.57159183 Take 667 [facility] acetate 1-[id number] (PHOSLO) 13:02: 3D mouth [...] 39 nightly. l calcium 2021-0 Yes 1334mg Q.07116471 Take 1,334 Methodi acetate,domingo 1-18 [id number] mg by s t sphat bind, 13:02: 3D mouth 3 Hos whit (Phoslyra) 39 (three) l 667 mg (169 times a mg day. calcium)/5 mL solution cyproheptad 2021-0 Yes 4mg Q.[id number] Take 4 mg [facility] ine 1-18 [id number] [address] mouth [address] (PERIACTIN) 13:02: 3D (three) Hos whit 4 mg tablet 39 times a l day as needed for allergies. buPROPion 2021-0 Yes 300mg QD Take 300 Met hodi XL 1-[address] ([facility] 13:02: mouth Hospi ta XL) 300 MG 39 daily. l 24 hr tablet ascorbic 2021-0 Yes 500mg Q.36362416 Take 500 [facility] acid, 1-[id number] vitamin C, 13:02: 3D [...] jo-ann 39 l calcium 2021-0 Yes 667mg Q.39174878 Take 667 [facility] acetate 1-[id number] (PHOSLO) 13:02: 3D mouth [...] 39 nightly. l calcium 2022-0 Yes 1334mg Q.71922037 Take 1,334 Methodi acetate,domingo 1-18 [id number] mg by s t sphat bind, 13:02: 3D mouth 3 Hos whit (Phoslyra) 39 (three) l 667 mg (169 times a mg day. calcium)/5 mL solution cyproheptad 2021-0 Yes 4mg Q.10863958 Take 4 mg [facility] ine 1-18 [id number] [address] mouth [address] (PERIACTIN) 13:02: 3D (three) Hos whit 4 mg tablet 39 times a l day as needed for allergies. buPROPion 2021-0 Yes 300mg QD Take 300 Met hodi XL 1-[address] ([facility] 13:02: mouth Hospi ta XL) 300 MG 39 daily. l 24 hr tablet ascorbic 2021-0 Yes 500mg Q.90355758 Take 500 [facility] acid, 1-[id number] vitamin C, 13:02: 3D [...] jo-ann 39 l calcium 2021-0 Yes 667mg Q.80965237 Take 667 [facility] acetate 1-[id number] (PHOSLO) 13:02: 3D mouth [...] 39 nightly. l calcium 2022-0 Yes 1334mg Q.66844365 Take 1,334 Methodi acetate,domingo 1-18 [id number] mg by s t sphat bind, 13:02: 3D mouth 3 Hos whit (Phoslyra) 39 (three) l 667 mg (169 times a mg day. calcium)/5 mL solution cyproheptad 2021-0 Yes 4mg Q.52802115 Take 4 mg [facility] ine 1-18 [id number] ([facility]CTIN) 13:02: 3D (three) Hos whit 4 mg tablet 39 times a l day as needed for allergies. buPROPion 2021-0 Yes 300mg QD Take 300 Met hodi XL 1-[address] ([facility] 13:02: mouth Hospi ta XL) 300 MG 39 daily. l 24 hr tablet ascorbic 2021-0 Yes 500mg Q.07452951 Take 500 Method[facility] acid, 1-[id number] vitamin C, 13:02: 3D [...] jo-ann 39 l calcium 2021-0 Yes 667mg Q.40570347 Take 667 [facility] acetate 1-[id number] (PHOSLO) 13:02: 3D mouth [...] 39 nightly. l calcium 2021-0 Yes 1334mg Q.66254583 Take 1,334 Methodi acetate,domingo 1-18 [id number] mg by s t sphat bind, 13:02: 3D mouth 3 Hos whit (Phoslyra) 39 (three) l 667 mg (169 times a mg day. calcium)/5 mL solution cyproheptad 2021-0 Yes 4mg Q.61114766 Take 4 mg [facility] ine 1-18 [id number] [address] mouth [address] ([facility]IACTIN) 13:02: 3D (three) Hos whit 4 mg tablet 39 times a l day as needed for allergies. buPROPion 2021-0 Yes 300mg QD Take 300 Met hodi XL 1-[address] ([facility] 13:02: mouth Hospi ta XL) 300 MG 39 daily. l 24 hr tablet ascorbic 2021-0 Yes 500mg Q.58327685 Take 500 Method[facility] acid, 1-[id number] vitamin C, 13:02: 3D [...] jo-ann 39 l calcium 2021-0 Yes 667mg Q.77295355 Take 667 [facility] acetate 1-[id number] (PHOSLO) 13:02: 3D mouth [...] 39 nightly. l calcium 2021-0 Yes 1334mg Q.48766210 Take 1,334 Methodi acetate,domingo 1-18 [id number] mg by s t sphat bind, 13:02: 3D mouth 3 Hos whit (Phoslyra) 39 (three) l 667 mg (169 times a mg day. calcium)/5 mL solution cyproheptad 0 Yes 4mg Q.[id number] Take 4 mg [facility] ine 1-18 [id number] [address] mouth [address] ([facility]CTIN) 13:02: 3D (three) Hos whit 4 mg tablet 39 times a l day as needed for allergies. buPROPion 0 Yes 300mg QD Take 300 Met hodi XL 1-[address] ([facility] 13:02: mouth Hospi ta XL) 300 MG 39 daily. l 24 hr tablet ascorbic 2021-0 Yes 500mg Q.25503346 Take 500 [facility] acid, 1-[id number] vitamin C, 13:02: 3D [...] jo-ann 39 l calcium 202-0 Yes 667mg Q.38579834 Take 667 [facility] acetate 1-[id number] (PHOSLO) 13:02: 3D mouth [...] 39 nightly. l calcium 2021-0 Yes 1334mg Q.03211073 Take 1,334 Methodi acetate,domingo 1-18 [id number] mg by s t sphat bind, 13:02: 3D mouth 3 Hos whit (Phoslyra) 39 (three) l 667 mg (169 times a mg day. calcium)/5 mL solution cyproheptad 0 Yes 4mg Q.57067324 Take 4 mg [facility] ine 1-18 [id number] [address] mouth [address] (PERIACTIN) 13:02: 3D (three) Hos whit 4 mg tablet 39 times a l day as needed for allergies. buPROPion 2021-0 Yes 300mg QD Take 300 Met hodi XL 1-[address] ([facility] 13:02: mouth Hospi ta XL) 300 MG 39 daily. l 24 hr tablet ascorbic 2021-0 Yes 500mg Q.48973791 Take 500 Method[facility] acid, 1-[id number] vitamin C, 13:02: 3D [...] jo-ann 39 l calcium 2021-0 Yes 667mg Q.78812109 Take 667 [facility] acetate 1-[id number] (PHOSLO) 13:02: 3D mouth [...] 39 nightly. l calcium 2021-0 Yes 1334mg Q.66991281 Take 1,334 Methodi acetate,domingo 1-18 [id number] mg by s t sphat bind, 13:02: 3D mouth 3 Hos whit (Phoslyra) 39 (three) l 667 mg (169 times a mg day. calcium)/5 mL solution cyproheptad 2021-0 Yes 4mg Q.95918207 Take 4 mg [facility] ine 1-18 [id number] (PERIACTIN) 13:02: 3D (three) Hos whit 4 mg tablet 39 times a l day as needed for allergies. buPROPion 2021-0 Yes 300mg QD Take 300 Met hodi XL 1-[address] ([facility] 13:02: mouth Hospi ta XL) 300 MG 39 daily. l 24 hr tablet ascorbic 2021-0 Yes 500mg Q.31044016 Take 500 Methodi acid, 1-[id number] vitamin C, 13:02: 3D [...] jo-ann 39 l calcium 2-0 Yes 667mg Q.40415090 Take 667 [facility] acetate 1-[id number] (PHOSLO) 13:02: 3D mouth [...] 39 nightly. l calcium 2021-0 Yes 1334mg Q.24654573 Take 1,334 Methodi acetate,domingo 1-18 [id number] mg by s t sphat bind, 13:02: 3D mouth 3 Hos whit (Phoslyra) 39 (three) l 667 mg (169 times a mg day. calcium)/5 mL solution cyproheptad 2021-0 Yes 4mg Q.83973239 Take 4 mg [facility]i ine 1-18 [id number] ([facility]CTIN) 13:02: 3D (three) Hos whit 4 mg tablet 39 times a l day as needed for allergies. buPROPion 2021-0 Yes 300mg QD Take 300 Met hodi XL 1-[address] ([facility] 13:02: mouth Hospi ta XL) 300 MG 39 daily. l 24 hr tablet ascorbic 2021-0 Yes 500mg Q.78042367 Take 500 Methodi acid, 1-[id number] vitamin C, 13:02: 3D [...] jo-ann 39 l calcium 2021-0 Yes 667mg Q.16883215 Take 667 [facility] acetate 1-[id number] (PHOSLO) 13:02: 3D mouth [...] 39 nightly. l calcium 2-0 Yes 1334mg Q.75002014 Take 1,334 Methodi acetate,domingo 1-18 [id number] mg by s t sphat bind, 13:02: 3D mouth 3 Hos whit (Phoslyra) 39 (three) l 667 mg (169 times a mg day. calcium)/5 mL solution cyproheptad 2021-0 Yes 4mg Q.17425010 Take 4 mg [facility]i ine 1-18 [id number] ([facility]CTIN) 13:02: 3D (three) Hos whit 4 mg tablet 39 times a l day as needed for allergies. buPROPion 2021-0 Yes 300mg QD Take 300 Met hodi XL 1-[address] ([facility] 13:02: mouth Hospi ta XL) 300 MG 39 daily. l 24 hr tablet ascorbic 2021-0 Yes 500mg Q.78601098 Take 500 Methodi acid, 1-[id number] vitamin C, 13:02: 3D [...] jo-ann 39 l calcium 2021-0 Yes 667mg Q.[id number] Take 667 [facility] acetate 1-[id number] (PHOSLO) 13:02: 3D mouth [...] 39 nightly. l calcium 2021-0 Yes 1334mg Q.67764738 Take 1,334 Methodi acetate,domingo 1-18 [id number] mg by s t sphat bind, 13:02: 3D mouth 3 Hos whit (Phoslyra) 39 (three) l 667 mg (169 times a mg day. calcium)/5 mL solution cyproheptad 2021-0 Yes 4mg Q.99575585 Take 4 mg [facility]i ine 1-18 [id number] (PERIACTIN) 13:02: 3D (three) Hos whit 4 mg tablet 39 times a l day as needed for allergies. buPROPion 2022-0 Yes 300mg QD Take 300 Met hodi XL 1-[address] ([facility] 13:02: mouth Hospi ta XL) 300 MG 39 daily. l 24 hr tablet ascorbic 2021-0 Yes 500mg Q.63218962 Take 500 Methodi acid, 1-[id number] vitamin C, 13:02: 3D [...] jo-ann 39 l calcium 2021-0 Yes 667mg Q.25155910 Take 667 [facility] acetate 1-[id number] (PHOSLO) 13:02: 3D mouth [...] 39 nightly. l calcium 2021-0 Yes 1334mg Q.53786041 Take 1,334 Methodi acetate,domingo 1-18 [id number] mg by s t sphat bind, 13:02: 3D mouth 3 Hos whit (Phoslyra) 39 (three) l 667 mg (169 times a mg day. calcium)/5 mL solution cyproheptad 2021-0 Yes 4mg Q.19654467 Take 4 mg [facility]i ine 1-18 [id number] [address] mouth [address] (PERIACTIN) 13:02: 3D (three) Hos whit 4 mg tablet 39 times a l day as needed for allergies. buPROPion 2021-0 Yes 300mg QD Take 300 Met hodi XL 1-[address] ([facility] 13:02: mouth Hospi ta XL) 300 MG 39 daily. l 24 hr tablet ascorbic 2022-0 Yes 500mg Q.51604468 Take 500 Methodi acid, 1-[id number] vitamin C, 13:02: 3D [...] jo-ann 39 l calcium 2022-0 Yes 667mg Q.25430789 Take 667 [facility] acetate 1-[id number] (PHOSLO) 13:02: 3D mouth [...] 39 nightly. l calcium 2021-0 Yes 1334mg Q.48487050 Take 1,334 Methodi acetate,domingo 1-18 [id number] mg by s t sphat bind, 13:02: 3D mouth 3 Hos whit (Phoslyra) 39 (three) l 667 mg (169 times a mg day. calcium)/5 mL solution cyproheptad 0 Yes 4mg Q.[id number] Take 4 mg [facility]i ine 1-18 [id number] [address] mouth [address] (PER[facility]CTIN) 13:02: 3D (three) Hos whit 4 mg tablet 39 times a l day as needed for allergies. buPROPion 2021-0 Yes 300mg QD Take 300 Met hodi XL 1-[address] ([facility] 13:02: mouth Hospi ta XL) 300 MG 39 daily. l 24 hr tablet ascorbic 2021-0 Yes 500mg Q.76098978 Take 500 Methodi acid, 1-[id number] vitamin C, 13:02: 3D [...] jo-ann 39 l calcium 2021-0 Yes 667mg Q.19828122 Take 667 [facility] acetate 1-[id number] (PHOSLO) 13:02: 3D mouth [...] 39 nightly. l calcium 2021-0 Yes 1334mg Q.68689036 Take 1,334 Methodi acetate,domingo 1-18 [id number] mg by s t sphat bind, 13:02: 3D mouth 3 Hos whit (Phoslyra) 39 (three) l 667 mg (169 times a mg day. calcium)/5 mL solution cyproheptad 2021-0 Yes 4mg Q.03484099 Take 4 mg [facility]i ine 1-18 [id number] [address] mouth [address] ([facility]CTIN) 13:02: 3D (three) Hos whit 4 mg tablet 39 times a l day as needed for allergies. buPROPion 2021-0 Yes 300mg QD Take 300 Met hodi XL 1-[address] ([facility] 13:02: mouth Hospi ta XL) 300 MG 39 daily. l 24 hr tablet ascorbic 2021-0 Yes 500mg Q.56899938 Take 500 Method[facility] acid, 1-[id number] vitamin C, 13:02: 3D [...] jo-ann 39 l calcium 2021-0 Yes 667mg Q.10398961 Take 667 [facility] acetate 1-[id number] (PHOSLO) 13:02: 3D mouth [...] 39 nightly. l calcium 2021-0 Yes 1334mg Q.25063890 Take 1,334 Methodi acetate,domingo 1-18 [id number] mg by s t sphat bind, 13:02: 3D mouth 3 Hos whit (Phoslyra) 39 (three) l 667 mg (169 times a mg day. calcium)/5 mL solution cyproheptad 2021-0 Yes 4mg Q.[id number] Take 4 mg [facility] ine 1-18 [id number] [address] mouth [address] (PERIACTIN) 13:02: 3D (three) Hos whit 4 mg tablet 39 times a l day as needed for allergies. buPROPion 2021-0 Yes 300mg QD Take 300 Met hodi XL 1-[address] ([facility] 13:02: mouth Hospi ta XL) 300 MG 39 daily. l 24 hr tablet ascorbic 2021-0 Yes 500mg Q.67539629 Take 500 [facility] acid, 1-[id number] vitamin C, 13:02: 3D [...] jo-ann 39 l calcium 2022-0 Yes 667mg Q.72194348 Take 667 [facility] acetate 1-[id number] (PHOSLO) 13:02: 3D mouth [...] 39 nightly. l calcium 2021-0 Yes 1334mg Q.13816891 Take 1,334 Methodi acetate,domingo 1-18 [id number] mg by s t sphat bind, 13:02: 3D mouth 3 Hos whit (Phoslyra) 39 (three) l 667 mg (169 times a mg day. calcium)/5 mL solution cyproheptad 2021-0 Yes 4mg Q.80013097 Take 4 mg [facility]i ine 1-18 [id number] [address] mouth [address] (PERIACTIN) 13:02: 3D (three) Hos whit 4 mg tablet 39 times a l day as needed for allergies. buPROPion 2021-0 Yes 300mg QD Take 300 Met hodi XL 1-[address] ([facility] 13:02: mouth Hospi ta XL) 300 MG 39 daily. l 24 hr tablet ascorbic 2021-0 Yes 500mg Q.85244544 Take 500 [facility]i acid, 1-[id number] vitamin C, 13:02: 3D [...] jo-ann 39 l calcium 2021-0 Yes 667mg Q.40256267 Take 667 [facility] acetate 1-[id number] (PHOSLO) 13:02: 3D mouth [...] 39 nightly. l calcium 2-0 Yes 1334mg Q.03603560 Take 1,334 Methodi acetate,domingo 1-18 [id number] mg by s t sphat bind, 13:02: 3D mouth 3 Hos whit (Phoslyra) 39 (three) l 667 mg (169 times a mg day. calcium)/5 mL solution cyproheptad 202-0 Yes 4mg Q.02108815 Take 4 mg [facility] ine 1-18 [id number] [address] mouth [address] (PERIACTIN) 13:02: 3D (three) Hos whit 4 mg tablet 39 times a l day as needed for allergies. buPROPion 202-0 Yes 300mg QD Take 300 Met hodi XL 1-[address] ([facility] 13:02: mouth Hospi ta XL) 300 MG 39 daily. l 24 hr tablet ascorbic 2021-0 Yes 500mg Q.31546172 Take 500 [facility] acid, 1-[id number] vitamin C, 13:02: 3D [...] jo-ann 39 l calcium 2021-0 Yes 667mg Q.02022892 Take 667 [facility] acetate 1-[id number] (PHOSLO) 13:02: 3D mouth [...] l MCG tablet times a day. doxazosin Yes 4mg QD Take 4 mg Met [...] mg at night vancomycin 2020-06- No 750mg Q.33498273 Infuse 750 [facility] 750 mg in 07-08 [id number] mg into a [facility] sodium 00:00: 05:59 [facility] chloride 00 :00 catheter 3 l 0.9% 250 mL (three) IVPB times a week for 19 days. Administer 3 times weekly in dialysis vancomycin 2020-06- No 750mg Q.01145003 Infuse 750 [facility] 750 mg in 07-08 [id number] mg into a [facility] sodium 00:00: 05:59 [facility] chloride 00 :00 catheter 3 l 0.9% 250 mL (three) IVPB times a week for 19 days. Administer 3 times weekly in dialysis vancomycin 2020-06- No 750mg Q.49872134 Infuse 750 [facility] 750 mg in 07-08 [id number] mg into a [facility] sodium 00:00: 05:59 [facility] chloride 00 :00 catheter 3 l 0.9% 250 mL (three) IVPB times a week for 19 days. Administer 3 times weekly in dialysis vancomycin 2020-06- No 750mg Q.31918014 Infuse 750 [facility] 750 mg in 07-08 [id number] mg [address] sodium 00:00: 05:59 [facility] chloride 00 :00 catheter 3 l 0.9% 250 mL (three) IVPB times a week for 19 days. Administer 3 times weekly in dialysis vancomycin 2020-06- No 750mg Q.88768463 Infuse 750 [facility] 750 mg in 07-[id number] sodium 00:00: 05:59 3[facility] chloride 00 :00 catheter 3 l 0.9% 250 mL (three) IVPB times a week for 19 days. Administer 3 times weekly in dialysis vancomycin 2020-06- No 750mg Q.64783822 Infuse 750 [facility] 750 mg in 07-[id number] mg [address] sodium 00:00: 05:59 3[facility] chloride 00 :00 catheter 3 l 0.9% 250 mL (three) IVPB times a week for 19 days. Administer 3 times weekly in dialysis vancomycin 2020-06- No 750mg Q.62954768 Infuse 750 [facility] 750 mg in 07-[id number] sodium 00:00: 05:59 3[facility] venous [facility] chloride 00 :00 catheter 3 l 0.9% 250 mL (three) IVPB times a week for 19 days. Administer 3 times weekly in dialysis vancomycin 2020-06- No 750mg Q.17849463 Infuse 750 [facility] 750 mg in 07-08 [id number] mg into a [address] sodium 00:00: 05:59 [facility] chloride 00 :00 catheter 3 l 0.9% 250 mL (three) IVPB times a week for 19 days. Administer 3 times weekly in dialysis vancomycin 2020-06- No 750mg [id number] Infuse 750 [facility] 750 mg in 07-08 [id number] mg into a [facility] sodium 00:00: 05:59 [facility] chloride 00 :00 catheter 3 l 0.9% 250 mL (three) IVPB times a week for 19 days. Administer 3 times weekly in dialysis vancomycin 2020-06- No 750mg Q.[id number] Infuse 750 [facility] 750 mg in 07-[id number] mg [address] a [address] sodium 00:00: 05:59 [facility] chloride 00 :00 catheter 3 l 0.9% 250 mL (three) IVPB times a week for 19 days. Administer 3 times weekly in dialysis vancomycin 2020-06- No 750mg Q.[id number] Infuse 750 [facility] 750 mg in 07-[id number] mg into a [address] sodium 00:00: 05:59 [facility] chloride 00 :00 catheter 3 l 0.9% 250 mL (three) IVPB times a week for 19 days. Administer 3 times weekly in dialysis vancomycin 2020-06- No 750mg Q.[id number] Infuse 750 [facility] 750 mg in 07-08 [id number] mg into a [facility] sodium 00:00: 05:59 [facility] chloride 00 :00 catheter 3 l 0.9% 250 mL (three) IVPB times a week for 19 days. Administer 3 times weekly in dialysis vancomycin 2020-06- No 750mg [id number] Infuse 750 [facility] 750 mg in 07-08 [id number] mg into a [address] sodium 00:00: 05:59 3W venous [facility] chloride 00 :00 catheter 3 l 0.9% 250 mL (three) IVPB times a week for 19 days. Administer 3 times weekly in dialysis HYDROcodone 2020-06- No [id number] 1{tbl} Q6H Take 1 [facility] -acetaminop 06-[address] [facility] ([facility]) 00:00: 05:59 mouth [facility] 5-325 mg 00 :00 every 6 l per tablet (six) hours as needed for severe pain for up to 5 days .acute pain. Max Daily Amount: 4 tablets HYDROcodone 2020-06 1{tbl} Q6H Take 1 [facility] -acetaminop 2-29 -[address] [facility] ([facility]) 00:00: 05:59 mouth [facility] 5-325 mg 00 :00 every 6 l per tablet (six) hours as needed for severe pain for up to 5 days .acute pain. Max Daily Amount: 4 tablets HYDROcodone 2020-06 1{tbl} Q6H Take 1 [facility] -acetaminop 2-29 -[address] [facility] ([facility]) 00:00: 05:59 mouth [facility] 5-325 mg 00 :00 every 6 l per tablet (six) hours as needed for severe pain for up to 5 days .acute pain. Max Daily Amount: 4 tablets HYDROcodone 2020-06 1{tbl} Q6H Take 1 [facility] -acetaminop 2-29 -[address] [facility] ([facility]) 00:00: 05:59 mouth [facility] 5-325 mg 00 :00 every 6 l per tablet (six) hours as needed for severe pain for up to 5 days .acute pain. Max Daily Amount: 4 tablets HYDROcodone 2020-06 1{tbl} Q6H Take 1 [facility] -acetaminop 2-29 -[address] [facility] ([facility]) 00:00: 05:59 mouth [facility] 5-325 mg 00 :00 every 6 l per tablet (six) hours as needed for severe pain for up to 5 days .acute pain. Max Daily Amount: 4 tablets HYDROcodone 2020-06 1{tbl} Q6H Take 1 [facility] -acetaminop 2-29 -[address] [facility] ([facility]) 00:00: 05:59 mouth [facility] 5-325 mg 00 :00 every 6 l per tablet (six) hours as needed for severe pain for up to 5 days .acute pain. Max Daily Amount: 4 tablets HYDROcodone 2020-06 1{tbl} Q6H Take 1 [facility] -acetaminop 2-29 -[address] [facility]) 00:00: 05:59 mouth [facility] 5-325 mg 00 :00 every 6 l per tablet (six) hours as needed for severe pain for up to 5 days .acute pain. Max Daily Amount: 4 tablets HYDROcodone 2020-06 1{tbl} Q6H Take 1 [facility] -acetaminop 2-29 -[address] [facility] ([facility]) 00:00: 05:59 mouth [facility] 5-325 mg 00 :00 every 6 l per tablet (six) hours as needed for severe pain for up to 5 days .acute pain. Max Daily Amount: 4 tablets HYDROcodone 2020-06 1{tbl} Q6H Take 1 [facility] -acetaminop 2-29 -[address] [facility] ([facility]) 00:00: 05:59 mouth [facility] 5-325 mg 00 :00 every 6 l per tablet (six) hours as needed for severe pain for up to 5 days .acute pain. Max Daily Amount: 4 tablets HYDROcodone 2020-06 1{tbl} Q6H Take 1 [facility] -acetaminop 2-29 -[address] [facility] ([facility]) 00:00: 05:59 mouth [facility] 5-325 mg 00 :00 every 6 l per tablet (six) hours as needed for severe pain for up to 5 days .acute pain. Max Daily Amount: 4 tablets HYDROcodone 2020-06 1{tbl} Q6H Take 1 [facility] -acetaminop 2-29 -[address] [facility] ([facility]) 00:00: 05:59 mouth [facility] 5-325 mg 00 :00 every 6 l per tablet (six) hours as needed for severe pain for up to 5 days .acute pain. Max Daily Amount: 4 tablets HYDROcodone 2020-06 1{tbl} Q6H Take 1 [facility] -acetaminop 2-29 -[address] [facility] ([facility]) 00:00: 05:59 mouth [facility] 5-325 mg 00 :00 every 6 l per tablet (six) hours as needed for severe pain for up to 5 days .acute pain. Max Daily Amount: 4 tablets HYDROcodone 2020-06 No [id number] 1{tbl} Q6H Take 1 [facility] -acetaminop -04 [...] 2-05 12-13 tablets by s t hen ([facility]) 00:00: 05:59 mouth [facility] 5-325 mg 00 :00 every 8 l per tablet (eight) hours as needed for severe pain for up to 7 days .acute pain. Max Daily Amount: 6 tablets HYDROcodone 2020-06 2{tbl} Q8H Take 2 [facility] -acetaminop 2-05 12-13 tablets by s t hen ([facility]) 00:00: 05:59 mouth [facility] 5-325 mg 00 :00 every 8 l per tablet (eight) hours as needed for severe pain for up to 7 days .acute pain. Max Daily Amount: 6 tablets HYDROcodone 2020-06 2{tbl} Q8H Take 2 [facility] -acetaminop 2-05 12-13 tablets by s t hen ([facility]) 00:00: 05:59 mouth [facility] 5-325 mg 00 :00 every 8 l per tablet (eight) hours as needed for severe pain for up to 7 days .acute pain. Max Daily Amount: 6 tablets HYDROcodone 2020-06 2{tbl} Q8H Take 2 [facility] -acetaminop 2-05 12-13 tablets by s t hen ([facility]) 00:00: 05:59 mouth [facility] 5-325 mg 00 :00 every 8 l per tablet (eight) hours as needed for severe pain for up to 7 days .acute pain. Max Daily Amount: 6 tablets HYDROcodone 2020-06 2{tbl} Q8H Take 2 [facility] -acetaminop 2-05 12-13 tablets by s t hen ([facility]) 00:00: 05:59 mouth [facility] 5-325 mg 00 :00 every 8 l per tablet (eight) hours as needed for severe pain for up to 7 days .acute pain. Max Daily Amount: 6 tablets HYDROcodone 2020-06 [id number] 2{tbl} Q8H Take 2 [facility] -acetaminop 2-05 12-13 tablets by s t hen ([facility]) 00:00: 05:59 mouth [facility] 5-325 mg 00 :00 every 8 l per tablet (eight) hours as needed for severe pain for up to 7 days .acute pain. Max Daily Amount: 6 tablets HYDROcodone 2020-06 [id number] 2{tbl} Q8H Take 2 [facility] -acetaminop 2-05 12-13 tablets by s t hen ([facility]) 00:00: 05:59 mouth [facility] 5-325 mg 00 :00 every 8 l per tablet (eight) hours as needed for severe pain for up to 7 days .acute pain. Max Daily Amount: 6 tablets HYDROcodone 2020-06 [id number] 2{tbl} Q8H Take 2 [facility] -acetaminop 2-05 12-13 tablets by s t hen ([facility]) 00:00: 05:59 mouth [facility] 5-325 mg 00 :00 every 8 l per tablet (eight) hours as needed for severe pain for up to 7 days .acute pain. Max Daily Amount: 6 tablets HYDROcodone 2020-06 [id number] 2{tbl} Q8H Take 2 [facility] -acetaminop 2-05 12-13 tablets by s t hen ([facility]) 00:00: 05:59 mouth [facility] 5-325 mg 00 :00 every 8 l per tablet (eight) hours as needed for severe pain for up to 7 days .acute pain. Max Daily Amount: 6 tablets HYDROcodone 2020-06 [id number] 2{tbl} Q8H Take 2 [facility] -acetaminop 2-05 12-13 tablets by s t hen ([facility]) 00:00: 05:59 mouth [facility] 5-325 mg 00 :00 every 8 l per tablet (eight) hours as needed for severe pain for up to 7 days .acute pain. Max Daily Amount: 6 tablets HYDROcodone 2020-06- No [id number] 2{tbl} Q8H Take 2 [facility] -acetaminop 2-05 12-13 tablets by s t hen ([facility]) 00:00: 05:59 mouth [facility] 5-325 mg 00 :00 every 8 l per tablet (eight) hours as needed for severe pain for up to 7 days .acute pain. Max Daily Amount: 6 tablets predniSONE 2020-06- No [id number] Take M ethodi (DELTASONE) 07-18 1205 Prednisone s t 50 mg 00:00: 00:00 50mg 13 [facility]ospita tablet 00 :00 hours, 7 l hours, and 1 hour prior to scheduled procedure on 05/19/2021 for contrast allergy prophylaxi s. predniSONE 2020-06- No [id number] Take M ethodi (DELTASONE) 07-18 12-05 Prednisone s t 50 mg 00:00: 00:00 50mg 13 [facility]osp[facility] tablet 00 :00 hours, 7 l hours, and 1 hour prior to scheduled procedure on 05/19/2021 for contrast allergy prophylaxi s. predniSONE 2020-06- No [id number] Take M ethodi (DELTASONE) 07-18 12-05 Prednisone s t 50 mg 00:00: 00:00 50mg 13 [facility] tablet 00 :00 hours, 7 l hours, and 1 hour prior to scheduled procedure on 05/19/2021 for contrast allergy prophylaxi s. predniSONE 2020-06- No [id number] Take M ethodi (DELTASONE) 07-18 12-05 Prednisone s t 50 mg 00:00: 00:00 50mg 13 [facility]osp[facility] tablet 00 :00 hours, 7 l hours, and 1 hour prior to scheduled procedure on 05/19/2021 for contrast allergy prophylaxi s. predniSONE 2020-06- No [id number] Take M ethodi (DELTASONE) 07-18 12-05 Prednisone s t 50 mg 00:00: 00:00 50mg 13 [facility]osp[facility] tablet 00 :00 hours, 7 l hours, and 1 hour prior to scheduled procedure on 05/19/2021 for contrast allergy prophylaxi s. predniSONE 2020-06- No [id number] Take M ethodi (DELTASONE) 07-18 12-05 Prednisone s t 50 mg 00:00: 00:00 50mg 13 [facility]osp[facility] tablet 00 :00 hours, 7 l hours, and 1 hour prior to scheduled procedure on 05/19/2021 for contrast allergy prophylaxi s. predniSONE 2020-06- No [id number] Take M ethodi (DELTASONE) 07-18 12-05 Prednisone s t 50 mg 00:00: 00:00 50mg 13 [facility]ospita tablet 00 :00 hours, 7 l hours, and 1 hour prior to scheduled procedure on 05/19/2021 for contrast allergy prophylaxi s. predniSONE 2020-06- No [id number] Take M ethodi (DELTASONE) 07-18 12-05 Prednisone s t 50 mg 00:00: 00:00 50mg 13 [facility]osp[facility] tablet 00 :00 hours, 7 l hours, and 1 hour prior to scheduled procedure on 05/19/2021 for contrast allergy prophylaxi s. predniSONE 2020-06- No [id number] Take M ethodi (DELTASONE) 07-18 12-05 Prednisone s t 50 mg 00:00: 00:00 50mg 13 [facility]ospita tablet 00 :00 hours, 7 l hours, and 1 hour prior to scheduled procedure on 05/19/2021 for contrast allergy prophylaxi s. predniSONE 2020-06- No [id number] Take M ethodi (DELTASONE) 07-18 12-05 Prednisone [...] mouth ity of mg tablet 23:08: daily. [address] Branch folic 2020-06 Yes 800mg Take 800 [facility] acid/vit B 0-01 mg by ity of complex and 23:08: mouth [place] C 36 daily. Medical (DIALYVITE Branch 800 ORAL) linagliptin 2020-06 Yes Take by Uni vers (TRADJENTA) 0-01 mouth. ity of 5 mg tablet 23:08: [address] Branch spironolact 2020-06 Yes 50mg Take 50 mg [facility] one 50 mg 0-01 by mouth ity of tablet 23:08: daily. [address] Branch pravastatin 2020-06 Yes 40mg Take 40 mg Univers 40 mg 0-01 by mouth ity of tablet 23:08: daily. [address] Branch mv-mn/iron/ 2020-06 Yes 1{capsu Take 1 U nivers folic 0-01 le} capsule by ity of acid/herb 23:08: mouth [place] 190 36 daily. Medical (VITAMIN D3 Branch COMPLETE ORAL) SERTraline 2020-06 Yes 50mg Take 50 mg U nivers 50 mg 0-01 by mouth ity of tablet 23:08: daily. [address] Branch calcium 2020-06 Yes 667mg Take [...] mouth 2 ity of tablet 23:08: (two) [place] [address] times Medical daily. Branch divalproex 2020-06 Yes 500mg Take 500 Un lori ER 0-01 mg by ity of (DEPAKOTE 23:08: mouth 2 [place] ER) 500 mg 36 (two) Medical 24 hr times Branch tablet daily. gabapentin 2020-06 Yes 100mg Take 100 Un lori 100 mg 0-01 mg by ity of capsule 23:08: mouth 2 [place] [address] (two) Medical times Branch daily. vitamin C 2020-06 Yes 2000mg Take 2,000 [facility] with sia 0-01 mg by ity of hips 23:08: mouth 2 [place] (VITAMIN C) 36 (two) Medical 1,000 mg times Branch tablet daily. metoprolol 2020-06 Yes 50mg Take 50 mg U nivers tartrate 50 0-01 by mouth ity of mg tablet 23:08: daily. [address] Branch folic 2020-06 Yes 800mg Take 800 [facility] acid/vit B 0-01 mg by ity of complex and 23:08: mouth [place] C 36 daily. Medical (DIALYVITE Branch 800 ORAL) linagliptin 2020-06 Yes Take by Uni vers (TRADJENTA) 0-01 mouth. ity of 5 mg tablet 23:08: [address] Branch spironolact 2020-06 Yes 50mg Take 50 mg [facility] one 50 mg 0-01 by mouth ity of tablet 23:08: daily. [address] Branch pravastatin 2020-06 Yes 40mg Take 40 mg Univers 40 mg 0-01 by mouth ity of tablet 23:08: daily. [address] Branch mv-mn/iron/ 2020-06 Yes 1{capsu Take 1 U nivers folic 0-01 le} capsule by ity of acid/herb 23:08: mouth [place] 190 36 daily. Medical (VITAMIN D3 Branch COMPLETE ORAL) SERTraline 2020-06 Yes 50mg Take 50 mg U nivers 50 mg 0-01 by mouth ity of tablet 23:08: daily. [address] Branch calcium 2020-06 Yes 667mg Take [...] janice 8-11 (Same as: l 01:36: Mylicon) [place] 00 Simethicone No Notes: [facility] janice 8-11 (Same as: l 01:36: Mylicon) [place] 00 Simethicone No Notes: [facility] janice 8-11 (Same as: l 01:36: licon) Vin Simethicone No Notes: [facility] janice 8-11 (Same as: l :36: on) Vin Simethicone No Notes: [facility] janice 8-11 (Same as: l :36: on) Vin 00 epoetin Yes 2,000 unit [facility] janice giovanny-epbx 8-10 = 1 mL, l 1999 19:37: IV, [place] units/mL 00 Q-M-W-, preservativ to be e-free given at injectable post solution Dialysis sessions, 0 Refill(s) epoetin Yes 2,000 unit [facility] janice giovanny-epbx 8-10 = 1 mL, l 1999 19:37: IV, [place] units/mL 00 Q---, preservativ to be e-free given at injectable post solution Dialysis sessions, 0 Refill(s) epoetin Yes 2,000 unit [facility] janice giovanny-epbx 8-10 = 1 mL, l 1999 19:37: IV, [place] units/mL 00 Q---, preservativ to be e-free given at injectable post solution Dialysis sessions, 0 Refill(s) epoetin Yes 2,000 unit [facility] janice giovanny-epbx 8-10 = 1 mL, l 1999 19:37: IV, [place] units/mL 00 Q-M-W-, preservativ to be e-free given at injectable post solution Dialysis sessions, 0 Refill(s) epoetin Yes 2,000 unit [facility] janice giovanny-epbx 8-10 = 1 mL, l 1999 19:37: IV, [place] units/mL 00 Q---, preservativ to be e-free given at injectable post solution Dialysis sessions, 0 Refill(s) gabapentin Yes 300 mg = 1 M emoria 300 MG Oral 8-10 cap, PO, l Capsule 19:34: Q-M--F, # Herm naeem 00 13 cap, 0 [...] tab, PO, l tablet 19:33: Daily, # [place] 00 14 tab, 0 Refill(s) amLODIPine 0 Yes 10 mg = 1 Me moria 10 mg oral 8-10 tab, PO, l tablet 19:33: Daily, # Vin 00 30 tab, 2 Refill(s) busPIRone 0 Yes 7.5 mg = 1 Me moria 7.5 mg oral 8-10 tab, PO, l tablet 19:33: BID, 0 [place] 00 Refill(s) buPROPion 0 Yes 75 mg = 1 Mem oria 75 mg oral 8-10 tab, PO, l tablet 19:33: Daily, # [place] 00 14 tab, 0 Refill(s) amLODIPine 0 Yes 10 mg = 1 Me moria 10 mg oral 8-10 tab, PO, l tablet 19:33: Daily, # [place] 00 30 tab, 2 Refill(s) busPIRone Yes 7.5 mg = 1 Me moria 7.5 mg oral 8-10 tab, PO, l tablet 19:33: BID, 0 [place] 00 Refill(s) buPROPion Yes 75 mg = [...] tablet 19:33: BID, 0 00 Refill(s) buPROPion 0 Yes 75 mg = 1 Mem oria 75 mg oral 8-10 tab, PO, l tablet 19:33: Daily, # Vin 00 14 tab, 0 Refill(s) Norvasc No Notes: Memoria 8-10 (Same as: l 17:35: Norvasc) Vin 00 Norvasc No Notes: [facility]oria 8-10 (Same as: l 17:35: Norvasc) [place] 00 Norvasc No Notes: [facility] 8-10 (Same as: l 17:35: Norvasc) Norvasc No Notes: [facility] 8-10 (Same as: l 17:35: Norvasc) [place] 00 Norvasc 2020-0 No Notes: [facility] 8-10 (Same as: l 17:35: Norvasc) [place] 00 Dextrose 1-0 No 25 gm, 50 M[place] janice 50% [...] mL 01-27 Rate: 20 l 20:28: ml/hr, [place] Infuse over: 50 hr, Route: IV, Dosing [...] mL 01-27 Rate: 20 l 20:28: ml/hr, [place] 00 Infuse over: 50 hr, Route: IV, Dosing Weight 74.5 kg, Total Volume: 1,000, Start date: 01/27/21 15:28:00 CDT, Duration: 30 day, Stop date: 02/26/21 15:27:00 CDT, BSA: 1.79 m2, 0 D5NS 1,000 2020-0 No 1,000 mL, Me moria mL 01-27 Rate: 20 l 20:28: ml/hr, [place] 00 Infuse over: 50 hr, Route: IV, [...] 01-27 not exceed l 09:29: 4 gm/day. [place] 00 (Same as: Tylenol) tramadol No Notes: Not Mem oria hydrochlori 01-27 to exceed l de 50 MG 09:29: 400mg/day. Her braden Oral Tablet 00 (Same As: Ultram) Tylenol No Notes: Do Memor ia 01-27 not exceed l 09:29: 4 gm/day. [place] 00 (Same as: Tylenol) tramadol No Notes: Not Mem oria hydrochlori 01-27 to exceed l de 50 MG 09:29: 400mg/day. Her braden Oral Tablet 00 (Same As: Ultram) Tylenol No Notes: Do Memor ia 01-27 not exceed l 09:29: 4 gm/day. [place] 00 (Same as: Tylenol) tramadol No Notes: Not Mem oria hydrochlori 01-27 to exceed l de 50 MG 09:29: 400mg/day. Her braden Oral Tablet 00 (Same As: Ultram) heparin No Notes: [facility]oria 01-27 porcine l 02:00: heparin [place] 00 heparin No Notes: [facility] 01-27 porcine l 02:00: heparin [place] 00 heparin No Notes: [facility] 01-27 porcine l 02:00: heparin [place] 00 heparin No Notes: [facility] 01-27 porcine l 02:00: heparin [place] 00 heparin No Notes: [facility] 01-27 porcine l 02:00: heparin [place] 00 Magnesium No Notes: Memori a Oxide 01-23 (Same as: l 22:54: Mag-Ox Vin 00 400) Magnesium oxide 092bo=756t g elemental magnesium Dose=____m g magnesium oxide (___mg elemental magnesium) Magnesium No Notes: Memori a Oxide 01-23 (Same as: l 22:54: Mag-Ox [place] 00 400) Magnesium oxide 501nf=345h g elemental magnesium Dose=____m g magnesium oxide (___mg elemental magnesium) Magnesium No Notes: Memori a Oxide 8-05 (Same as: l 22:54: Mag-Ox [place] 00 400) Magnesium oxide 267al=979v g elemental magnesium Dose=____m g magnesium oxide (___mg elemental magnesium) Magnesium No Notes: Memori a Oxide 8-05 (Same as: l 22:54: Mag-Ox [place] 00 400) Magnesium oxide 499cp=406q g elemental magnesium Dose=____m g magnesium oxide (___mg elemental magnesium) Magnesium No Notes: Memori a Oxide 8-05 (Same as: l 22:54: Mag-Ox Vin 00 400) Magnesium oxide 473fz=334u g elemental magnesium Dose=____m g magnesium oxide (___mg elemental magnesium) Coreg No Notes: [facility] 8-05 Give with l 02:00: food. Vin 00 (Same As: Coreg) Coreg No Notes: [facility] 8-05 Give with l 02:00: food. Vin 00 (Same As: Coreg) Coreg No Notes: [facility] 8-05 Give with l 02:00: food. [place] 00 (Same As: Coreg) Coreg No Notes: [facility] 8-05 Give with l 02:00: food. [place] 00 (Same As: Coreg) Coreg No Notes: [facility] 8-05 Give with l 02:00: food. Vin 00 (Same As: Coreg) Buspar No Notes: [facility] 8-04 (Same As: l 22:00: BuSpar) Vin 00 Buspar No Notes: [facility] 8-04 (Same As: l 22:00: BuSpar) [place] 00 Buspar No Notes: [facility] 8-04 (Same As: l 22:00: BuSpar) Vin 00 Buspar No Notes: [facility] 8-04 (Same As: l 22:00: BuSpar) [place] 00 Buspar No Notes: [facility] 8-04 (Same As: l 22:00: BuSpar) Vin 00 Fentanyl No Notes: [facility] 8-04 (Same as: l 21:06: Sublimaze) Vin 00 Preservati ve free. Fentanyl No Notes: [facility] 8-04 (Same as: l 21:06: Sublimaze) [place] 00 Preservati ve free. Fentanyl No Notes: [facility] 8-04 (Same as: l 21:06: Sublimaze) Vin 00 Preservati ve free. Fentanyl No Notes: [facility] 8-04 (Same as: l 21:06: Sublimaze) Vin 00 Preservati ve free. Fentanyl No Notes: [facility] 8-04 (Same as: l 21:06: Sublimaze) [place] 00 Preservati ve free. Norvasc No Notes: [facility] 8-04 (Same as: l 16:47: Norvasc) Vin 00 Norvasc No Notes: [facility] 8-04 (Same as: l 16:47: Norvasc) Vin 00 Norvasc No Notes: [facility] 8-04 (Same as: l 16:47: Norvasc) [place] 00 Norvasc No Notes: [facility] 8-04 (Same as: l 16:47: Norvasc) [place] 00 Norvasc No Notes: [facility] 8-04 (Same as: l 16:47: Norvasc) [place] 00 Wellbutrin No Notes: Memor ia 8-04 (Same As: l 16:00: Wellbutrin ) Wellbutrin No Notes: Memor ia 8-04 (Same As: l 16:00: Wellbutrin Vin 00 ) Wellbutrin No Notes: Memor ia 8-04 (Same As: l 16:00: Wellbutrin ) Wellbutrin No Notes: Memor ia 8-04 (Same As: l 16:00: Wellbutrin [place] 00 ) Wellbutrin No Notes: Memor ia 8-04 (Same As: l 16:00: Wellbutrin ) pantoprazol No Notes: For Memoria e 8-04 IV push l 14:00: reconstitu Vin 00 te with 10 ml 0.9% sodium chloride and push over 2 minutes. (Same as: Protonix) Aspirin 81 No Notes: Memor ia MG Chewable 8-04 Take with l Tablet 14:00: food. Vin [...] ia 8-04 tab, l 14:00: Route: PO, Vin 00 Drug form: TAB, Daily, Dosing Weight [...] release crush. Pravastatin No Notes: Mendoza janice -04 (Same as: l 14:00: Pravachol) Zoloft No [...] 8- not exceed l 09:44: 4 gm/day. (Same as: Tylenol) Fentanyl No Notes: Memoria 8-04 (Same as: l 09:44: Sublimaze) Preservati ve free. Tramadol No Notes: Not Mem oria 8-04 to exceed l 09:44: 400mg/day. (Same As: Ultram) Tylenol No Notes: Do Memor ia 8- not exceed l 09:44: 4 gm/day. (Same as: Tylenol) Fentanyl No Notes: [facility]oria 8-04 (Same as: l 09:44: Sublimaze) Vin 00 Preservati ve free. Tramadol 0 No Notes: Not Mem oria 8-04 to exceed l 09:44: 400mg/day. Vin 00 (Same As: Ultram) Tylenol No Notes: Do Memor ia 8-04 not exceed l 09:44: 4 gm/day. [place] 00 (Same as: Tylenol) Fentanyl No Notes: [facility]oria 8-04 (Same as: l 09:44: Sublimaze) Vin 00 Preservati ve free. Tramadol 0 No Notes: Not Mem oria 8-04 to exceed l 09:44: 400mg/day. [place] 00 (Same As: Ultram) Tylenol No Notes: Do Memor ia 8-04 not exceed l 09:44: 4 gm/day. [place] 00 (Same as: Tylenol) Fentanyl No Notes: [facility] 8-04 (Same as: l 09:44: Sublimaze) Vin 00 Preservati ve free. Tramadol No Notes: Not Mem oria 8-04 to exceed l 09:44: 400mg/day. [place] 00 (Same As: Ultram) Tylenol 0 No Notes: Do Memor ia 8-04 not exceed l 09:44: 4 gm/day. [place] 00 (Same as: Tylenol) Fentanyl No Notes: [facility] 8-04 (Same as: l 09:44: Sublimaze) [place] 00 Preservati ve free. Fentanyl 0 No Notes: [facility]oria 8-04 (Same as: l 04:46: Sublimaze) [place] 00 Preservati ve free. Fentanyl 0 No Notes: [facility]oria 8-04 (Same as: l 04:46: Sublimaze) [place] 00 Preservati ve free. Fentanyl 0 No Notes: [facility]oria 8-04 (Same as: l 04:46: Sublimaze) Vin 00 Preservati ve free. Fentanyl 2020-0 No Notes: [facility] 8-04 (Same as: l 04:46: Sublimaze) Vin 00 Preservati ve free. Fentanyl 2021-0 No Notes: [facility] 8-04 (Same as: l 04:46: Sublimaze) [place] 00 Preservati ve free. Fentanyl No Notes: [facility] 8-04 (Same as: l 02:01: Sublimaze) Vin 00 Preservati ve free. Fentanyl No Notes: [facility] 8-04 (Same as: l 02:01: Sublimaze) [place] 00 Preservati ve free. Fentanyl No Notes: [facility] 8-04 (Same as: l 02:01: Sublimaze) Vin 00 Preservati ve free. Fentanyl No Notes: [facility] 8-04 (Same as: l 02:01: Sublimaze) [place] 00 Preservati ve free. Fentanyl No Notes: [facility] 8-04 (Same as: l 02:01: Sublimaze) [place] 00 Preservati ve free. Coreg No Notes: [facility] 8-04 Give with l 02:00: food. Vin (Same As: Coreg) Saline No Notes: [facility] Flush 0.9% 8-04 Same as: l 02:00: BD [place] 00 Posiflush Sterile Valproate No 1,000 mg, Mem oria 8-04 2 tab, l 02:00: Route: PO, [place] 00 Drug form: ERTAB, Bedtime, Start date: 01/21/21 21:00:00 CDT, Duration: 30 day, Stop date: 02/19/21 21:00:00 CDT, 0 Coreg No Notes: [facility] 8-04 Give with l 02:00: food. [place] 00 (Same As: Coreg) Saline No Notes: [facility] Flush 0.9% 8-04 Same as: l 02:00: BD [place] Posiflush Sterile Valproate No 1,000 mg, Mem oria 8-04 2 tab, l 02:00: Route: PO, Vin 00 Drug form: ERTAB, Bedtime, Start date: 01/21/21 21:00:00 CDT, Duration: 30 day, Stop date: 02/19/21 21:00:00 CDT, 0 Coreg No Notes: [facility] 8-04 Give with l 02:00: food. [place] (Same As: Coreg) Saline No Notes: [facility] Flush 0.9% 8-04 Same as: l 02:00: BD [place] 00 Posiflush Sterile Valproate No 1,000 mg, Mem oria 8-04 2 tab, l 02:00: Route: PO, [place] 00 Drug form: ERTAB, Bedtime, Start date: 01/21/21 21:00:00 CDT, Duration: 30 day, Stop date: 02/19/21 21:00:00 CDT, 0 Coreg No Notes: [facility] 8-04 Give with l 02:00: food. Vin 00 (Same As: Coreg) Saline No Notes: [facility] Flush 0.9% 8-04 Same as: l 02:00: BD [place] 00 Posiflush Sterile Valproate No 1,000 mg, Mem oria 8-04 2 tab, l 02:00: Route: PO, Vin 00 Drug form: ERTAB, Bedtime, Start date: 01/21/21 21:00:00 CDT, Duration: 30 day, Stop date: 02/19/21 21:00:00 CDT, 0 Coreg No Notes: [facility] 8-04 Give with l 02:00: food. Vin (Same As: Coreg) Saline No Notes: [facility] Flush 0.9% 8-04 Same as: l 02:00: BD [place] 00 Posiflush Sterile Valproate No 1,000 mg, Mem oria 8-04 2 tab, l 02:00: Route: PO, Vin 00 Drug form: ERTAB, Bedtime, Start date: 01/21/21 21:00:00 CDT, Duration: 30 day, Stop date: 02/19/21 21:00:00 CDT, 0 heparin No Notes: [facility] 8-03 porcine l 21:00: heparin [place] 00 heparin No Notes: [facility] 8-03 porcine l 21:00: heparin [place] 00 heparin No Notes: [facility] 8-03 porcine l 21:00: heparin [place] 00 heparin 2020-0 No Notes: [facility] 01-21 porcine l 21:00: heparin [place] heparin 2020-0 No Notes: [facility] 01-21 porcine l 21:00: heparin Dextrose 0 No 12.5 gm, Memor ia 50% Syringe 01-21 25 mL, l (D50W) 20:01: Route: [place] 00 IVP, Drug Form: INJ, Dosing Weight 74.5, kg, PRN, PRN Blood Glucose Results, Start date: 01/21/21 15:01:00 CDT, Duration: 30 day, Stop date: 02/20/21 15:00:00 CDT, 0 Glucagon 0 No 1 mg, Memoria 01-21 Route: IM, [...] 01-21 25 mL, l (D50W) 20:01: Route: [place] 00 IVP, Drug Form: INJ, Dosing Weight 74.5, kg, PRN, PRN Blood Glucose Results, Start date: 01/21/21 15:01:00 CDT, Duration: 30 day, Stop date: 02/20/21 15:00:00 CDT, 0 Glucagon 2020-0 No 1 mg, [facility] 01-21 Route: IM, l 20:01: Drug form: [place] 00 PDR/INJ, PRN, Dosing Weight 74.5, kg, [...] Lispro 8-03 (Same as: l 20:01: Humalog) [place] 00 Roll in palms of hands gently; [...] 01-21 Route: IM, l 20:01: Drug form: [place] 00 PDR/INJ, PRN, Dosing Weight 74.5, kg, PRN Blood Glucose Results, Start date: 01/21/21 15:01:00 CDT, Duration: 30 day, Stop date: 02/20/21 15:00:00 CDT, 0 Insulin 2020-0 No Notes: [facility] Lispro - (Same as: l 20:01: Humalog) Vin 00 Roll in palms of hands gently; Do not shake vigorously . WASTE: F/P - Black; E - Municipal Trash Bin Stable for 28 days at room temperatur e. Expires in days from ____Date Dextrose No 12.5 gm, Memor ia 50% Syringe 01-21 25 mL, l (D50W) 20:01: Route: [place] 00 IVP, Drug Form: INJ, Dosing Weight 74.5, kg, PRN, PRN Blood Glucose Results, Start date: 01/21/21 15:01:00 CDT, Duration: 30 day, Stop date: 02/20/21 15:00:00 CDT, 0 Glucagon 0 No 1 mg, Memoria 01-21 Route: IM, [...] Same as: l 200 mL 18:26: Cardene [place] (Titrate.) 00 Concentrat IV 40 mg ion: (0.2 mg /1 ml ) Cardene 40 No Notes: Memor ia mg in NS 01-21 Same as: l 200 mL 18:26: Cardene Vin (Titrate.) 00 Concentrat IV 40 mg ion: (0.2 mg /1 ml ) Cardene 40 No Notes: Memor ia mg in NS 01-21 Same as: l 200 mL 18:26: Cardene [place] (Titrate.) 00 Concentrat IV 40 mg ion: (0.2 mg /1 ml ) Cardene 40 No Notes: Memor ia mg in NS 01-21 Same as: l 200 mL 18:26: Cardene [place] (Titrate.) 00 Concentrat IV 40 mg ion: [...] ine 8-03 tab, l 18:00: Route: PO, [place] 00 Drug form: TAB, TID, Dosing Weight [...] ine 8-03 tab, l 18:00: Route: PO, [place] 00 Drug form: TAB, TID, Dosing Weight 72, kg, Start date: 01/21/21 13:00:00 CDT, Duration: 30 day, Stop date: 02/20/21 9:00:00 CDT Albuterol No Notes: SEE Ne moria 8 RT l 17:49: DOCUMENTAT [place] 00 ION (Same as: Proventil) Albuterol No Notes: SEE Ne moria 8- RT l 17:49: DOCUMENTAT Vin 00 ION (Same as: Proventil) Albuterol No Notes: SEE Ne moria 8 RT l 17:49: DOCUMENTAT [place] 00 ION (Same as: Proventil) Albuterol No Notes: SEE Ne moria 8 RT l 17:49: DOCUMENTAT [place] 00 ION (Same as: Proventil) Albuterol No Notes: SEE Ne moria 8-03 RT l 17:49: DOCUMENTAT Vin [...] day, Stop date: 02/20/21 12:32:00 CDT Nystatin 2021-0 No Notes: Memoria 100 UNT/MG 8-03 (Same l Topical 17:31: as:Mycosta Herm naeem Powder 00 tin, Nilstat) For external use only. Saline No Notes: Memoria Flush 0.9% 8-03 Same as: l 17:31: BD [place] 00 Posiflush Sterile propofol No Notes: If M emoria mg/mL 8-03 Diprivan - l (Titrate.) 17:31: change Nidia nn IV 1,000 mg 00 bottle & tubing every 12 hr Per state nursing law propofol can only be given by a nurse if patient is intubated or being intubated (unless the nurse is a BOX CUTTER). Same as: Diprivan Nystatin No Notes: Memoria 100 UNT/MG 8-03 (Same l Topical 17:31: as:Mycosta Herm naeem Powder 00 tin, Nilstat) For external use only. Saline No Notes: Memoria Flush 0.9% 8-03 Same as: l 17:31: BD [place] 00 Posiflush Sterile propofol No Notes: If M emoria mg/mL 8-03 Diprivan - l (Titrate.) 17:31: change Nidia nn IV 1,000 mg 00 bottle & tubing every 12 hr Per state nursing law propofol can only be given by a nurse if patient is intubated or being intubated (unless the nurse is a BOX CUTTER). Same as: Diprivan Nystatin No Notes: Memoria 100 UNT/MG 8-03 (Same l Topical 17:31: as:Mycosta Herm aneem Powder 00 tin, Nilstat) For external use [...] being intubated (unless the nurse is a BOX CUTTER). Same as: Diprivan Nystatin No Notes: Memoria 100 UNT/MG 8-03 (Same l Topical 17:31: as:Mycosta Herm naeem Powder 00 tin, Nilstat) For external use only. Saline No Notes: Memoria Flush 0.9% 8-03 Same as: l 17:31: BD [place] 00 Posiflush Sterile propofol 10 No Notes: If M emoria mg/mL 8-03 Diprivan - l (Titrate.) 17:31: change Nidia nn IV 1,000 mg 00 bottle & tubing every 12 hr Per state nursing law propofol can only be given by a nurse if patient is intubated or being intubated (unless the nurse is a BOX CUTTER). Same as: Diprivan Nystatin No Notes: Memoria [...] being intubated (unless the nurse is a BOX CUTTER). Same as: Diprivan midazolam No Route: IV, Me moria (ANES) 01-21 Drug form: l 17:18: SOLN, [place] 00 ONCE, Stop date: 01/21/21 12:18:00 CDT fentaNYL No Route: IV, Mem oria (ANES) 01-21 Drug form: l 17:18: INJ, ONCE, Vin Stop date: 01/21/21 12:18:00 CDT niCARdipine No Route: IV, Memoria (ANES) 01-21 Drug form: l 17:18: INJ, ONCE, Vin Stop date: 01/21/21 12:18:00 CDT midazolam No Route: IV, Me moria (ANES) 01-21 Drug form: l 17:18: SOLN, [place] ONCE, Stop date: 01/21/21 12:18:00 CDT fentaNYL 0 No Route: IV, Mem oria (ANES) 01-21 Drug form: l 17:18: INJ, ONCE, Vin 00 Stop date: 01/21/21 12:18:00 CDT niCARdipine 0 No Route: IV, Memoria (ANES) 01-21 Drug form: l 17:18: INJ, ONCE, Vin 00 Stop date: 01/21/21 12:18:00 CDT midazolam 0 [...] 01-21 Drug form: l 17:18: INJ, ONCE, [place] 00 Stop date: 01/21/21 12:18:00 CDT midazolam [...] ONCE, Stop date: 01/21/21 11:20:00 CDT glycopyrrol 2021-0 No Route: IV, Memoria ate (ANES) 01-21 [...] ONCE, Stop date: 01/21/21 9:51:00 CDT lidocaine No Route: IV, Me moria [...] (ANES) 01-21 Drug form: l 14:51: INJ, ONCE Stop date: 01/21/21 9:51:00 CDT propofol 2020-0 [...] 8- not give l 13:16: IV push. [place] 00 (Same as: Phenergan) Simethicone No Notes: [...] janice 01-21 (Same as: l 13:16: Mylicon, [place] Phazyme, Genasyme) Hydralazine No Notes: Mendoza janice [...] janice 8- (Same as: l 13:16: Mylicon, [place] 00 Phazyme, Genasyme) Hydralazine No Notes: Mendoza janice 8- (Same as: l 13:16: Apresoline ) Push over 5 minutes Labetalol No 10 mg, 2 Mendoza janice 8- mL, Route: l 13:16: IVP, Drug form: INJ, Q5Min, Dosing Weight 72, kg, PRN Elevated BP, Start date: 01/21/21 8:16:00 CDT, Duration: 5 doses or times, Stop date: 01/22/21 0:00:00 CDT, 0 Fentanyl No Notes: Memoria 03 (Same as: l 13:16: Sublimaze) Preservati ve [...] 8 (Same as: l 13:16: Mylicon, Vin 00 Phazyme, Genasyme) calcium No See Memoria acetate 667 8-03 Instructio l MG Oral 12:59: ns, 1 cap Nidia nn Capsule 00 PO with meals, 0 Refill(s) calcium 0 No See Memoria acetate 667 8-03 Instructio l MG Oral 12:59: ns, 1 cap Nidia nn Capsule 00 PO with meals, 0 Refill(s) calcium 0 No See Memoria acetate 667 8-03 Instructio l MG Oral 12:59: ns, 1 cap Nidia nn Capsule 00 PO with meals, 0 Refill(s) calcium 0 No See Memoria acetate 667 8-03 Instructio [...] 5,000 UT mansi (D3-5) 7-16 Units by [facility] th 5,000 Units 13:03: mouth 1 tablet 11 (one) time each day. folic Yes 1{tbl} QD Take 1 UT acid-vitami 7-16 tablet by [facility] n B 13:03: mouth 1 complex-vit [...] n [XIFAXAN] 00 tab, 2 Refill(s), Pharmacy: [facility], 154.94, cm, 12/24/20 10:43:00 CDT, Height, 71.818, kg, 12/24/20 10:43:00 CDT, Weight rifaximin 2021-0 Yes 550 mg = 1 Me moria 550 MG Oral 7-06 tab, PO, l Tablet 18:46: TID, # 42 Jake n [XIFAXAN] 00 tab, 2 Refill(s), Pharmacy: [facility], 154.94, cm, 12/24/20 10:43:00 CDT, Height, 71.818, kg, 12/24/20 10:43:00 CDT, Weight rifaximin 2021-0 Yes 550 mg = 1 Me moria 550 MG Oral 7-06 tab, PO, l Tablet 18:46: TID, # 42 Jake n [XIFAXAN] 00 tab, 2 Refill(s), Pharmacy: [facility], 154.94, cm, 12/24/20 10:43:00 CDT, Height, 71.818, kg, 12/24/20 10:43:00 CDT, Weight rifaximin 2021-0 Yes 550 mg = 1 Me moria 550 MG Oral 7-06 tab, PO, l Tablet 18:46: TID, # 42 Jake n [XIFAXAN] 00 tab, 2 Refill(s), Pharmacy: [facility], 154.94, cm, 12/24/20 10:43:00 CDT, Height, 71.818, kg, 12/24/20 10:43:00 CDT, Weight rifaximin 2021-0 Yes 550 mg = 1 Me moria 550 MG Oral 7-06 tab, PO, l Tablet 18:46: TID, # 42 Jake n [XIFAXAN] 00 tab, 2 Refill(s), Pharmacy: [facility], 154.94, cm, 12/24/20 10:43:00 CDT, Height, 71.818, kg, 12/24/20 10:43:00 CDT, Weight {2 (480 ML 2020-0 Yes See Memoria Magnesium 7-06 Instructio l Sulfate 18:12: ns, take Jake n 0.0277 00 as MEQ/ML / directed, potassium give sulfate clenpiq if 0.0374 not MEQ/ML / covered by sodium insurance, sulfate # 1 ea, 0 0.257 Refill(s), MEQ/ML Oral Pharmacy: Solution) } [facility] [Suprep 808, Bowel Prep 154.94, Kit] [...] 0.257 Refill(s), MEQ/ML Oral Pharmacy: Solution) } [facility] [Suprep 808, Bowel Prep 154.94, Kit] [...] 0.257 Refill(s), MEQ/ML Oral Pharmacy: Solution) } [facility] [Suprep 808, Bowel Prep 154.94, Kit] [...] 0.257 Refill(s), MEQ/ML Oral Pharmacy: Solution) } [facility] [Suprep 808, Bowel Prep 154.94, Kit] cm, 12/24/20 10:43:00 CDT, Height, 71.818, kg, 12/24/20 10:43:00 CDT, Weight {2 (480 ML 2020-0 Yes See Memoria Magnesium - Instructio l Sulfate 18:12: ns, take Jake n 0.0277 00 as MEQ/ML / directed, potassium give sulfate clenpiq if 0.0374 not MEQ/ML / covered by sodium insurance, sulfate # 1 ea, 0 0.257 Refill(s), MEQ/ML Oral Pharmacy: Solution) } [facility] [Suprep 808, Bowel Prep 154.94, [...] day, # 90 tab, 3 Refill(s), Pharmacy: [facility], 154.94, cm, 12/24/20 10:43:00 CDT, Height, 71.818, kg, 12/24/20 10:43:00 CDT, Weight cyproheptad 2020-0 Yes 4 mg = 1 Me moria ine 4 mg 7-06 tab, PO, l oral tablet 18:10: TID, X 30 H ermann 00 day, # 90 tab, 3 Refill(s), Pharmacy: [facility], 154.94, cm, 12/24/20 10:43:00 CDT, Height, 71.818, kg, 12/24/20 10:43:00 CDT, Weight cyproheptad 1-0 Yes 4 mg = 1 Me moria ine 4 mg 7-06 tab, PO, l oral tablet 18:10: TID, X 30 H ermann 00 day, # 90 tab, 3 Refill(s), Pharmacy: [facility], 154.94, cm, 12/24/20 10:43:00 CDT, Height, 71.818, kg, 12/24/20 10:43:00 CDT, Weight cyproheptad 2020-0 Yes 4 mg = 1 Me moria ine 4 mg 7-06 tab, PO, l oral tablet 18:10: TID, X 30 H erm day, # 90 tab, 3 Refill(s), Pharmacy: [facility], 154.94, cm, 12/24/20 10:43:00 CDT, Height, 71.818, kg, 12/24/20 10:43:00 CDT, Weight cyproheptad 2020-0 Yes 4 mg = 1 Me moria ine 4 mg 7-06 tab, PO, l oral tablet 18:10: TID, X 30 H erm 00 day, # 90 tab, 3 Refill(s), Pharmacy: [facility], 154.94, cm, 12/24/20 10:43:00 CDT, Height, 71.818, kg, 12/24/20 10:43:00 CDT, Weight Zinc 2020-0 Yes 140 mg, Memoria 7-06 PO, Daily, l 15:54: 0 Vin 00 Refill(s) Elderberry 2020-0 Yes 0 Memoria preparation 7-06 Refill(s) l 15:54: Vin 00 Zinc 1-0 Yes 140 mg, Memoria 7-06 PO, Daily, l 15:54: 0 [place] 00 Refill(s) Elderberry 2020-0 Yes 0 Memoria [...] Take 100 UT (Neurontin) 6-19 mg by [facility] 100 MG 00:00: mouth 1 capsule 00 (one) time each day. divalproex 0 Yes 500mg Q.5D Take 500 UT (Depakote 6-19 mg by [facility] ER) 500 MG 00:00: mouth 2 24 hr 00 (two) tablet times a day. busPIRone Yes 7.5mg Q.5D Take 7.5 UT (Buspar) 6-19 mg by [facility] 7.5 MG 00:00: mouth 2 tablet 00 (two) times a day. buPROPion Yes 300mg Take 300 UT XL 6-19 mg by [facility] (Wellbutrin 00:00: mouth 1 XL) 300 MG 00 (one) time 24 hr each day tablet in the morning. metoprolol Yes 1{tbl} QD Take 1 UT succinate 5-25 tablet by [facility] h XL 00:00: mouth 1 (Toprol-XL) 00 (one) time 50 MG 24 hr each day. tablet ascorbic Yes 500mg Q.[id number] Take 500 UT acid 5-15 [id number] mg by [facility] (Vitamin C) 00:00: 3D mouth 3 500 MG 00 (three) tablet times a day. zinc Yes DAILY [facility] sulfate 50 5-10 ity of mg zinc 00:00: [place] (220 mg) Medical capsule Branch sucralfate 0 Yes 1{tbl} QD Take 1 UT (Carafate) 5-10 tablet by [facility] th 1 g tablet 00:00: mouth 1 00 (one) time each day. ondansetron 0 Yes 4mg Take 4 mg U nivers 4 mg 4-13 by mouth ity of disintegrat 00:[place]: [place]. [place] tablet 00 Medical Branch GLIPIZIDE 5 Yes [id number] TAKE 1 Univers mg tablet 4-06 TABLET BY ity o f 00:00: MOUTH [place] 00 TWICE Medical DAILY Branch BEFORE BREAKFAST AND BEFORE SUPPER doxazosin 4 2020- No 4mg Take 4 mg [facility] mg tablet 06-27 by mouth 2 ity of 10:52: 00:00 (two) [place] 22 :00 times Medical daily. Branch doxazosin 4 Yes 4mg Take 1 Univ ers mg tablet -07 tablet by ity o f 00:00: mouth at [place] 00 bedtime. Medical Branch doxazosin 4 Yes 4mg Take 1 Univ ers mg tablet - tablet by ity o f 00:00: mouth at [place] 00 bedtime. Medical Branch glipiZIDE 5 2019-06- No [id number] 5mg Take 1 [facility] mg tablet 07-01-06 tablet by ity of 00:00: 00:00 mouth 2 [place] 00 :00 (two) Medical times Branch daily before breakfast and dinner. metoclopram 2019-0 Yes 1{tbl} Take 1 Un lori gadiel [...] 667 mg 00 Medical capsule Branch traZODone 2019- Yes 150mg Take 150 Uni vers 150 mg 8-13 mg by ity of tablet 00:00: mouth at [place] 00 bedtime. Medical Branch traZODone 2020-0 Yes 150mg Take 150 Uni vers 150 mg 8-13 mg by ity of tablet 00:00: mouth at [place] 00 bedtime. Medical Branch erythromyci 2020- No [id number] .5[in_u Place 0.5 Univers n 5 mg/gram 7-27 01-07 s] Inches in it y of (0.5 [...] as ophthalmic needed for drops Dry eyes. amLODIPine Yes 10mg QD Take [address] (NORVASC) 5 7-20 by mouth [facility] MG tablet 15:20: daily. Medica l 59 Center hydrALAZINE Yes 100mg Q.60180130 Take [address] [facility] (APRESOLINE 7-20 [id number] mg by L ukes ) 100 MG 15:20: 3D mouth 3 Medica l tablet 59 (three) Center times daily. magnesium 2017 Yes 400mg QD Take [address] [facility] oxide 7-20 mg by [facility] (MAG-OX) 15:20: mouth Medical 400 mg 59 daily. Center tablet metoclopram 2017-0 Yes 10mg Q.08567821 Take [address] [facility] gadiel HCl 7-20 [id number] by mouth 3 [facility] (REGLAN) 10 15:20: [...] l 59 Center hydrALAZINE 2017-0 Yes 100mg Q.86017879 Take [address] [facility] (APRESOLINE 7-20 [id number] mg by L ukes ) 100 MG 15:20: 3D mouth 3 Medica l tablet 59 (three) Center times daily. magnesium 2017-0 Yes 400mg QD Take [address] [facility] oxide 7-20 mg by [facility] (MAG-OX) 15:20: mouth Medical 400 mg 59 daily. Center tablet metoclopram 2017-0 Yes 10mg Q.82044614 Take [address] [facility] gadiel HCl 7-20 [id number] by mouth 3 [facility] (REGLAN) 10 15:20: [...] l 59 Center hydrALAZINE 2017-0 Yes 100mg Q.81164925 Take [address] [facility] (APRESOLINE 7-20 [id number] mg by L ukes ) 100 MG 15:20: 3D mouth 3 Medica l tablet 59 (three) Center times daily. magnesium 2017-0 Yes 400mg QD Take [address] oxide 7-20 mg by [facility] (MAG-OX) 15:20: mouth Medical 400 mg 59 daily. Center tablet metoclopram 2017-0 Yes 10mg Q.59421400 Take [address] [facility] gadiel HCl 7-20 [id number] by mouth 3 [facility] (REGLAN) 10 15:20: [...] l 59 Center hydrALAZINE 2017-0 Yes 100mg Q.79174162 Take [address] [facility] (APRESOLINE 7-20 [id number] mg by L ukes ) 100 MG 15:20: 3D mouth 3 Medica l tablet 59 (three) Center times daily. magnesium 2017-0 Yes 400mg QD Take [address] oxide 7-20 mg by [facility] (MAG-OX) 15:20: mouth Medical 400 mg 59 daily. Center tablet metoclopram 2017-0 Yes 10mg Q.82782067 Take [address] [facility] gadiel HCl 7-20 [id number] by mouth 3 [facility] (REGLAN) 10 15:20: [...] l 59 Center hydrALAZINE 2017-0 Yes 100mg Q.26605007 Take [address] [facility] (APRESOLINE 7-20 [id number] mg by L ukes ) 100 MG 15:20: 3D mouth 3 Medica l tablet 59 (three) Center times daily. magnesium 2017-0 Yes 400mg QD Take [address] [facility] oxide 7-20 mg by [facility] (MAG-OX) 15:20: mouth Medical 400 mg 59 daily. Center tablet metoclopram 2017-0 Yes 10mg Q.16800730 Take [address] [facility] gadiel HCl 7-20 [id number] by mouth 3 [facility] (REGLAN) 10 15:20: [...] l 59 Center hydrALAZINE 2017-0 Yes 100mg Q.22480124 Take [address] [facility] (APRESOLINE 7-20 [id number] mg by Misbah grayes ) 100 MG 15:20: 3D mouth 3 Medica l tablet 59 (three) Center times daily. magnesium 2017- Yes 400mg QD Take [address] oxide 7-20 mg by [facility] (MAG-OX) 15:20: mouth Medical 400 mg 59 daily. Center tablet metoclopram 2017- Yes 10mg Q.73144298 Take [address] [facility] gadiel HCl 7-20 [id number] by mouth 3 [facility] (REGLAN) 10 15:20: [...] tablet 15:20: daily. Medica l 59 Center divalproex 2017-0 Yes depression 500mg QD Take [...] l 59 Center hydrALAZINE 2017-0 Yes 100mg Q.40420716 Take [address] [facility] (APRESOLINE 7-20 [id number] mg by L ukes ) 100 MG 15:20: 3D mouth 3 Medica l tablet 59 (three) Center times daily. magnesium 2017-0 Yes 400mg QD Take [address] [facility] [address] oxide 7-20 mg by [facility] (MAG-OX) 15:20: mouth Medical 400 mg 59 daily. Center tablet hydrALAZINE 2017-0 Yes 100mg Q.70305564 Take [address] [facility] [address] (APRESOLINE 7-20 [id number] mg by L ukes ) 100 MG 15:20: 3D mouth 3 Medica l tablet 59 (three) Center times daily. metoclopram 2017-0 Yes 10mg Q.93776516 Take [address] [facility] gadiel HCl 7-20 [id number] by mouth 3 [facility] (REGLAN) 10 15:20: [...] every 3 Center mg/mL (three) injection months. magnesium 2017-0 Yes 400mg QD Take [address] oxide 7-20 mg by [facility] (MAG-OX) 15:20: mouth Medical 400 mg 59 daily. Center tablet metoclopram 2017-0 Yes 10mg Q.71825341 Take [address] [facility] gadiel HCl 7-20 [id number] by mouth 3 [facility] (REGLAN) 10 15:20: [...] l 59 Center hydrALAZINE 2017- Yes 100mg Q.88163920 Take [address] [facility] [address] (APRESOLINE 7-20 [id number] mg by L ukes ) 100 MG 15:20: 3D mouth 3 Medica l tablet 59 (three) Center times daily. magnesium 2017- Yes 400mg QD Take [address] [facility] oxide 7-20 mg by [facility] (MAG-OX) 15:20: mouth Medical 400 mg 59 daily. Center tablet metoclopram 2017- Yes 10mg Q.90829816 Take [address] [facility] gadiel HCl 7-20 [id number] by mouth 3 [facility] (REGLAN) 10 15:20: [...] l 59 Center hydrALAZINE 2017-0 Yes 100mg Q.49800416 Take [address] [facility] [address] (APRESOLINE 7-20 [id number] mg by L ukes ) 100 MG 15:20: 3D mouth 3 Medica l tablet 59 (three) Center times daily. magnesium 2017-0 Yes 400mg QD Take [address] [facility] [address] oxide 7-20 mg by [facility] (MAG-OX) 15:20: mouth Medical 400 mg 59 daily. Center tablet metoclopram 2017-0 Yes 10mg Q.55240749 Take [address] [facility] gadiel HCl 7-20 [id number] by mouth 3 [facility] (REGLAN) 10 15:20: [...] l 59 Center hydrALAZINE 2017-0 Yes 100mg Q.54072934 Take [address] [facility] (APRESOLINE 7-20 [id number] mg by L ukes ) 100 MG 15:20: 3D mouth 3 Medica l tablet 59 (three) Center times daily. magnesium 2017-0 Yes 400mg QD Take [address] oxide 7-20 mg by [facility] (MAG-OX) 15:20: mouth Medical 400 mg 59 daily. Center tablet metoclopram 2017-0 Yes 10mg Q.29527297 Take [address] [facility] gadiel HCl 7-20 [id number] by mouth 3 [facility] (REGLAN) 10 15:20: [...] l 59 Center hydrALAZINE 2017-0 Yes 100mg Q.63949432 Take [address] [facility] [address] (APRESOLINE 7-20 [id number] mg by L ukes ) 100 MG 15:20: 3D mouth 3 Medica l tablet 59 (three) Center times daily. magnesium 2017-0 Yes 400mg QD Take [address] [facility] [address] oxide 7-20 mg by [facility] (MAG-OX) 15:20: mouth Medical 400 mg 59 daily. Center tablet metoclopram 2017-0 Yes 10mg Q.95517942 Take [address] [facility] gadiel HCl 7-20 [id number] by mouth 3 [facility] (REGLAN) 10 15:20: [...] l 59 Center hydrALAZINE 2017-0 Yes 100mg Q.[id number] Take [address] [facility] [address] (APRESOLINE 7-20 [id number] mg by L ukes ) 100 MG 15:20: 3D mouth 3 Medica l tablet 59 (three) Center times daily. magnesium 2017-0 Yes 400mg QD Take [address] [address] oxide 7-20 mg by [facility] (MAG-OX) 15:20: mouth Medical 400 mg 59 daily. Center tablet metoclopram 2017-0 Yes 10mg Q.19621696 Take [address] [facility] gadiel HCl 7-20 [id number] by mouth 3 [facility] (REGLAN) 10 15:20: [...] l 59 Center hydrALAZINE 2017-0 Yes 100mg Q.00581372 Take [address] [facility] [address] (APRESOLINE 7-20 [id number] mg by L ukes ) 100 MG 15:20: 3D mouth 3 Medica l tablet 59 (three) Center times daily. magnesium 2017-0 Yes 400mg QD Take [address] oxide 7-20 mg by [facility] (MAG-OX) 15:20: mouth Medical 400 mg 59 daily. Center tablet metoclopram 2017-0 Yes 10mg Q.26222973 Take [address] [facility] gadiel HCl 7-20 [id number] by mouth 3 [facility] (REGLAN) 10 15:20: [...] Medical tablet 59 bipolar daily. Center disorder divalproex 2017-0 Yes depression 500mg QD Take [...] l 59 Center hydrALAZINE 2017-0 Yes 100mg Q.42112273 Take [address] [facility] (APRESOLINE 7-20 [id number] mg by L es ) 100 MG 15:20: 3D mouth 3 Medica l tablet 59 (three) Center times daily. magnesium 2017-0 Yes 400mg QD Take [address] oxide 7-20 mg by [facility] (MAG-OX) 15:20: mouth Medical 400 mg 59 daily. Center tablet metoclopram 2017-0 Yes 10mg Q.49293519 Take [address] [facility] gadiel HCl 7-20 [id number] by mouth 3 [facility] (REGLAN) 10 15:20: [...] depression daily. Med ical tablet 59 Center ondansetron 2017-0 Yes 4mg Take [address] (ZOFRAN) 4 7-20 by mouth [facility] MG tablet 15:20: every 6 Medic al 59 (six) Center hours as needed for Nausea. medroxyPROG 2017-[address] [facility] ESTERone [...] l 59 Center hydrALAZINE 2017-0 Yes 100mg Q.[id number] Take [address] [facility] [address] (APRESOLINE 7-20 [id number] mg by L ukes ) 100 MG 15:20: 3D mouth 3 Medica l tablet 59 (three) Center times daily. magnesium 2017-0 Yes 400mg QD Take [address] [address] oxide 7-20 mg by [facility] (MAG-OX) 15:20: mouth Medical 400 mg 59 daily. Center tablet metoclopram 2017-0 Yes 10mg Q.65796271 Take [address] [facility] gadiel HCl 7-20 [id number] by mouth 3 [facility] (REGLAN) 10 15:20: 3D (three) Med ical MG tablet 59 times Center daily. traMADol 2017-0 Yes 50mg Take [address] [facility] (ULTRAM) 50 7-20 by mouth [facility] mg tablet 15:20: every 6 Medic al 59 (six) Center hours as needed for Pain. meclizine 2017-0 Yes 12.5mg Take 12.5 C [...] l 59 Center hydrALAZINE 2017-0 Yes 100mg Q.71549119 Take [address] [facility] [address] (APRESOLINE 7-20 [id number] mg by L ukes ) 100 MG 15:20: 3D mouth 3 Medica l tablet 59 (three) Center times daily. pantoprazol 2017-0 Yes 40mg QD Take [address] [facility] e 7-20 by mouth [facility] (PROTONIX) 15:20: daily. Medic al 40 MG 59 Center tablet magnesium 2017-0 Yes 400mg QD Take [address] [address] oxide 7-20 mg by [facility] (MAG-OX) 15:20: mouth Medical 400 mg 59 daily. Center tablet metoclopram 2017-0 Yes 10mg Q.44396432 Take [address] [facility] gadiel HCl 7-20 [id number] by mouth 3 [facility] (REGLAN) 10 15:20: [...] tablet 15:20: daily. Medica l 59 Center amLODIPine 2017-0 Yes 10mg QD Take [address] (NORVASC) 5 7-20 by mouth [facility] MG tablet 15:20: daily. Medica l 59 Center hydrALAZINE 2017-0 Yes 100mg Q.66365867 Take [address] [facility] [address] (APRESOLINE 7-20 [id number] mg by L ukes ) 100 MG 15:20: 3D mouth 3 Medica l tablet 59 (three) Center times daily. magnesium 2017-0 Yes 400mg QD Take [address] oxide 7-20 mg by [facility] (MAG-OX) 15:20: mouth Medical 400 mg 59 daily. Center tablet metoclopram 2017-0 Yes 10mg Q.87004763 Take [address] [facility] gadiel HCl 7-20 [id number] by mouth 3 [facility] (REGLAN) 10 15:20: [...] (six) Center hours as needed for Nausea. hydrALAZINE 2017-0 Yes 100mg Q.97607396 Take [address] [facility] [address] (APRESOLINE 7-20 [id number] mg by L ukes ) 100 MG 15:20: 3D mouth 3 Medica l tablet 59 (three) Center times daily. traMADol 2017-0 Yes 50mg Take 50 mg [...] l 59 Center hydrALAZINE 2017-0 Yes 100mg Q.02805925 Take [address] [facility] (APRESOLINE 7-20 [id number] mg by L ukes ) 100 MG 15:20: 3D mouth 3 Medica l tablet 59 (three) Center times daily. magnesium 2017-0 Yes 400mg QD Take [address] [address] oxide 7-20 mg by [facility] (MAG-OX) 15:20: mouth Medical 400 mg 59 daily. Center tablet metoclopram 2017-0 Yes 10mg Q.10954495 Take [address] [facility] gadiel HCl 7-20 [id number] by mouth 3 [facility] (REGLAN) 10 15:20: [...] every 3 Center mg/mL (three) injection months. magnesium 2017-0 Yes 400mg QD Take [address] [address] oxide 7-20 mg by [facility] (MAG-OX) 15:20: mouth Medical 400 mg 59 daily. Center tablet divalproex 2017-0 Yes depression 500mg QD Take [...] l 59 Center hydrALAZINE 2017-0 Yes 100mg Q.58475908 Take [address] [facility] [address] (APRESOLINE 7-20 [id number] mg by L ukes ) 100 MG 15:20: 3D mouth 3 Medica l tablet 59 (three) Center times daily. magnesium 2017-0 Yes 400mg QD Take [address] [address] oxide 7-20 mg by [facility] (MAG-OX) 15:20: mouth Medical 400 mg 59 daily. Center tablet metoclopram 2017-0 Yes 10mg Q.55395393 Take [address] [facility] gadiel HCl 7-20 [id number] by mouth 3 [facility] (REGLAN) 10 15:20: [...] depression daily. Med ical tablet 59 Center metoclopram 2017-0 Yes 10mg Q.56669131 Take [address] [facility] [address] gadiel HCl 7-20 [id number] by mouth 3 [facility] (REGLAN) 10 15:20: 3D (three) Med ical MG tablet 59 times Center daily. medroxyPROG 2017-[address] [facility] ESTERone 7-20 [facility] (DEPO-PROVE 15:20: larly Medic al RA) 150 59 every 3 Center mg/mL (three) injection months. meclizine 2017-0 Yes 12.5mg Take 12.5 C [...] l 59 Center hydrALAZINE 2017-0 Yes 100mg Q.[id number] Take [address] [facility] [address] (APRESOLINE 7-20 [id number] mg by L [facility] ) 100 MG 15:20: 3D mouth 3 Medica l tablet 59 (three) Center times daily. magnesium 2017-0 Yes 400mg QD Take [address] [facility] [address] oxide 7-20 mg [facility] (MAG-OX) 15:20: mouth Medical 400 mg 59 daily. Center tablet metoclopram 2017-0 Yes 10mg Q.[id number] Take [address] [facility] [address] gadiel HCl 7-20 [id number] by [facility] 3 [facility] (REGLAN) 10 15:20: [...] l 59 Center hydrALAZINE 2017-0 Yes 100mg Q.[id number] Take [address] [facility] [address] (APRESOLINE 7-20 [id number] mg by L [facility] ) 100 MG 15:20: 3D mouth 3 Medica l tablet 59 (three) Center times daily. magnesium 2017-0 Yes 400mg QD Take [address] oxide 7-20 mg by [facility] (MAG-OX) 15:20: [facility] 400 mg 59 daily. Center tablet metoclopram 2017-0 Yes 10mg [id number] Take [address] [facility] gadiel HCl 7-20 [id number] [facility] ([facility]) 10 15:20: [...] l 59 Center hydrALAZINE 2017-0 Yes 100mg [id number] Take [address] [facility] (APRESOLINE 7-20 [id number] mg by L ukes ) 100 MG 15:20: 3D mouth 3 [facility] l tablet 59 (three) Center times daily. magnesium 2017-0 Yes 400mg QD Take [address] [facility] oxide 7-20 [facility] (MAG-OX) 15:20: [facility] 400 mg 59 daily. Center tablet metoclopram 2017-0 Yes 10mg Q.[id number] Take [address] [facility] gadiel HCl 7-20 [id number] [facility] ([facility] 10 15:20: [...] l [facility] Center hydrALAZINE 2017-0 Yes 100mg [id number] Take [address] [facility] (APRESOLINE 7-20 [id number] mg by L ukes ) 100 MG 15:20: 3D [facility] 3 [facility] l tablet 59 (three) Center times daily. magnesium 2017-0 Yes 400mg QD Take [address] [facility] oxide 7-20 [facility] (MAG-OX) 15:20: [facility] 400 mg 59 daily. Center tablet metoclopram 2017-0 Yes 10mg [id number] Take [address] [facility] gadiel HCl 7-20 [id number] [facility] ([facility]) 10 15:20: [...] l 59 Center hydrALAZINE 2017-0 Yes 100mg Q.[id number] Take [address] [facility] [address] (APRESOLINE 7-20 [id number] mg by L ukes ) 100 MG 15:20: 3D [facility] 3 [facility] l tablet 59 (three) Center times daily. magnesium 2017- Yes 400mg QD Take [address] [facility] [address] oxide 7-20 [facility] (MAG-OX) 15:20: [facility] 400 mg 59 daily. Center tablet metoclopram 2017-0 Yes 10mg Q.[id number] Take [address] [facility] gadiel HCl 7-20 [id number] by [facility] ([facility]) 10 15:20: [...] Medic al 40 MG 59 Center tablet insulin 2017-0 Yes 5U QD Inject 5 [...] tab, PO, l Tablet 15:07: Daily, # [place] 00 30 tab, 0 Refill(s), Pharmacy: [id number] Furosemide 0 Yes 40 mg = 1 Me moria 40 MG Oral 2-09 tab, PO, l Tablet 15:07: Daily, # [place] 00 30 tab, 0 Refill(s), Pharmacy: [id number] Furosemide 20170 Yes 40 mg = 1 Me moria 40 MG Oral 2-09 tab, PO, l Tablet 15:07: Daily, # [place] 00 30 tab, 0 Refill(s), Pharmacy: [facility] Furosemide 2017-0 Yes 40 mg = 1 Me moria 40 MG Oral 2-09 tab, PO, l Tablet 15:07: Daily, # [place] 00 30 tab, 0 Refill(s), Pharmacy: [facility] Furosemide 2017-0 Yes 40 mg = 1 Me moria 40 MG Oral 2-09 tab, PO, l Tablet 15:07: Daily, # [place] 00 30 tab, 0 Refill(s), Pharmacy: [facility] Bumex 2017-0 No 0.5 mg, Memoria 2-09 Route: PO, l 15:00: Drug form: [place] 00 TAB, Daily, Dosing Weight 92.273, kg, Start date: 07/30/16 9:00:00 [employer], Duration: 30 day, Stop date: 08/28/16 9:00:00 EVENT STAFF MEMBER Bumex 2017-0 No 0.5 mg, Memoria 2-09 Route: PO, l 15:00: Drug form: [place] 00 TAB, Daily, Dosing Weight 92.273, kg, Start date: 07/30/16 9:00:00 EVENT STAFF MEMBER, Duration: 30 day, Stop date: 08/28/16 9:00:00 EVENT STAFF MEMBER Bumex 2017-0 No 0.5 mg, Memoria 2-09 Route: PO, l 15:00: Drug form: Vin 00 TAB, Daily, Dosing Weight 92.273, kg, Start date: 07/30/16 9:00:00 EVENT STAFF MEMBER, Duration: 30 day, Stop date: 08/28/16 9:00:00 EVENT STAFF MEMBER Bumex 2017-0 No 0.5 mg, Memoria 2-09 Route: PO, l 15:00: Drug form: [place] 00 TAB, Daily, Dosing Weight 92.273, kg, Start date: 07/30/16 9:00:00 EVENT STAFF MEMBER, Duration: 30 day, Stop date: 08/28/16 9:00:00 EVENT STAFF MEMBER Bumex 2017-0 No 0.5 mg, Memoria 2-09 Route: PO, l 15:00: Drug form: [place] 00 TAB, Daily, Dosing Weight 92.273, kg, Start date: 07/30/16 9:00:00 EVENT STAFF MEMBER, Duration: 30 day, Stop date: 08/28/16 9:00:00 EVENT STAFF MEMBER Lasix 2017-0 No Notes: Memoria 2-08 (Same as: l 20:05: Lasix) May [place] 00 cause GI upset. Give with food or milk. Lasix 0 No Notes: Memoria 2-08 (Same as: l 20:05: Lasix) May [place] 00 cause GI upset. Give with food or milk. Lasix 0 No Notes: Memoria 2-08 (Same as: l 20:05: Lasix) May [place] 00 cause GI upset. Give with food or milk. Lasix No Notes: Memoria 2-08 (Same as: l 20:05: Lasix) May [place] 00 cause GI upset. Give with food or milk. Lasix No Notes: Memoria 2-08 (Same as: l 20:05: Lasix) May [place] 00 cause GI upset. Give with food or milk. Hydralazine No Notes: Mendoza janice 2-08 (Same as: l 06:05: Apresoline [place] 00 ) Push over 5 minutes Hydralazine 2016-0 No Notes: Mendoza janice 2-08 (Same as: l 06:05: Apresoline [place] 00 ) Push over 5 minutes Hydralazine 2016-0 No Notes: Mendoza janice 2-08 (Same as: l 06:05: Apresoline [place] 00 ) Push over 5 minutes Hydralazine 0 [...] Total Volume: 1,000, Start date: 07/26/16 12:26:00 EVENT [employer]FF MEMBER, Duration: 30 day, Stop date: 08/25/16 12:25:00 EVENT [employer]FF MEMBER sodium 2017-0 No 1,000 mL, Memori a chloride 2-05 Rate: 125 l 0.9% 1000 18:26: ml/hr, Jake n ml INJ 00 Infuse 1,000 mL over: 8 hr, Route: IV, Dosing Weight 92.273 kg, Total Volume: 1,000, Start date: 07/26/16 12:26:00 EVENT STAFF MEMBER, Duration: 30 day, Stop date: 08/25/16 12:25:00 EVENT [employer]AFF MEMBER sodium 2017-0 No 1,000 mL, Memori a chloride 2-05 Rate: 125 l 0.9% 1000 18:26: ml/hr, Jake n ml INJ 00 Infuse 1,000 mL over: 8 hr, Route: IV, Dosing Weight 92.273 kg, Total Volume: 1,000, Start date: 07/26/16 12:26:00 EVENT STAFF MEMBER, Duration: 30 day, Stop date: 08/25/16 12:25:00 EVENT [employer]AFF MEMBER sodium 2017-0 No 1,000 mL, Memori a chloride 2-05 Rate: 125 l 0.9% 1000 18:26: ml/hr, Jake n ml INJ 00 Infuse 1,000 mL over: 8 hr, Route: IV, Dosing Weight 92.273 kg, Total Volume: 1,000, Start date: 07/26/16 12:26:00 EVENT STAFF MEMBER, Duration: 30 day, Stop date: 08/25/16 12:25:00 EVENT [employer]FF MEMBER sodium 2017-0 No 1,000 mL, Memori a chloride 2-05 Rate: 125 l 0.9% 1000 18:26: ml/hr, Jake n ml INJ 00 Infuse 1,000 mL over: 8 hr, Route: IV, Dosing Weight 92.273 kg, Total Volume: 1,000, Start date: 07/26/16 12:26:00 EVENT [employer]AFF MEMBER, Duration: 30 day, Stop date: 08/25/16 12:25:00 EVENT STAFF MEMBER Sodium 2017-0 No 500 mL, Memoria Chloride 2-05 500 ml/hr, l 0.154 13:30: Infuse [place] MEQ/ML 00 Over: 1 Injectable hr, Route: Solution IV, 500, Drug form: INJ, ONCE, Priority: STAT, Dosing Weight 92.273 kg, Start date: 07/26/16 7:30:00 EVENT ST[employer]FF MEMBER, Duration: 1 doses or times, Stop date: 07/26/16 7:30:00 EVENT [employer]AFF MEMBER Sodium 2017-0 No 500 mL, Memoria Chloride 2-05 500 ml/hr, l 0.154 13:30: Infuse Vin MEQ/ML 00 Over: 1 Injectable hr, Route: Solution IV, 500, Drug form: INJ, ONCE, Priority: STAT, Dosing Weight 92.273 kg, Start date: 07/26/16 7:30:00 EVENT STAFF MEMBER, Duration: 1 doses or times, Stop date: 07/26/16 7:30:00 EVENT STAFF MEMBER Sodium 2017-0 No 500 mL, Memoria Chloride 2-05 500 ml/hr, l 0.154 13:30: Infuse [place] MEQ/ML 00 Over: 1 Injectable hr, Route: Solution IV, 500, Drug form: INJ, ONCE, Priority: STAT, Dosing Weight 92.273 kg, Start date: 07/26/16 7:30:00 EVENT STAFF MEMBER, Duration: 1 doses or times, Stop date: 07/26/16 7:30:00 EVENT STAFF MEMBER Sodium 2017-0 No 500 mL, Memoria Chloride 2-05 500 ml/hr, l 0.154 13:30: Infuse [place] MEQ/ML 00 Over: 1 Injectable hr, Route: Solution IV, 500, Drug form: INJ, ONCE, Priority: STAT, Dosing Weight 92.273 kg, Start date: 07/26/16 7:30:00 EVENT STAFF MEMBER, Duration: 1 doses or times, Stop date: 07/26/16 7:30:00 EVENT STAFF MEMBER Sodium 2017-0 No 500 mL, Memoria Chloride 2-05 500 ml/hr, l 0.154 13:30: Infuse Vin MEQ/ML 00 Over: 1 Injectable hr, Route: Solution IV, 500, Drug form: INJ, ONCE, Priority: STAT, Dosing Weight 92.273 kg, Start date: 07/26/16 7:30:00 EVENT ST[employer]FF MEMBER, Duration: 1 doses or times, Stop date: 07/26/16 7:30:00 EVENT STAFF MEMBER Insulin 2017-0 No 60 units) Mendoza janice regular 2-04 WASTE: F/P l 08:39: - Black; E [place] 00 - Municipal Trash Bin Stable for [...] WASTE: F/P l 08:39: - Black; E [place] 00 - Municipal Trash Bin Stable for [...] Roll in l Human 07:31: palms of [place] 00 hands gently; Do not shake vigorously [...] e. Expires in days from ____Date Insulin, 0 No Notes: Memoria Aspart, 2-04 Roll in l Human 07:31: palms of [place] 00 hands gently; Do not shake vigorously [...] Roll in l Human 05:42: palms of [place] 00 hands gently; Do not shake vigorously . (Same as: NovoLOG) "single patient use only" WASTE: F/P - Black; E - Municipal Trash Bin Stable for 28 days at room temperatur e. Expires in days from ____Date Insulin, No Notes: Memoria Aspart, 2-04 Roll in l Human 05:42: palms of [place] 00 hands gently; Do not shake vigorously [...] sodium 2-04 (Same as: l 03:00: Depakote [place] 00 ER) Once daily dosing; indicated for [...] "Do Not Crush" Lasix No Notes: Memoria 07-24 (Same as: l 22:00: Lasix) [place] MEDICATION WASTE Product Size: 40 mg Product Wasted: ___ mg Lasix No Notes: Memoria 07-24 (Same as: l 22:00: Lasix) Vin MEDICATION WASTE Product Size: 40 mg Product Wasted: ___ mg Lasix No Notes: Memoria 2 (Same as: l 22:00: Lasix) Vin MEDICATION WASTE Product Size: 40 mg Product Wasted: ___ mg Lasix No Notes: Memoria 2 (Same as: l 22:00: Lasix) [place] MEDICATION WASTE Product Size: 40 mg Product Wasted: ___ mg Lasix No Notes: Memoria 2-03 (Same as: l 22:00: Lasix) MEDICATION WASTE Product Size: 40 mg Product Wasted: ___ mg Tylenol No Notes: Max Mendoza janice 2-03 acetaminop l 21:52: hen = Vin 00 4000mg/day (4 gm/day). (Same as: Tylenol) Tylenol No Notes: Max Mendoza janice 2-03 acetaminop l 21:52: hen = [place] 00 4000mg/day (4 gm/day). (Same as: Tylenol) Tylenol No Notes: Max Mendoza janice 2-03 acetaminop l 21:52: hen = Vin 00 4000mg/day (4 gm/day). (Same as: Tylenol) Tylenol No Notes: Max Mendoza janice 2-03 acetaminop l 21:52: hen = [place] 00 4000mg/day (4 gm/day). (Same as: Tylenol) Tylenol No Notes: Max Mendoza janice 2-03 acetaminop l 21:52: hen = Vin 00 4000mg/day (4 gm/day). (Same as: Tylenol) Bupropion No 150 mg, 1 Mem oria 2-03 tab, l 15:00: Route: PO, Drug form: ERTAB, Daily, Dosing Weight 92.273, kg, Start date: 07/24/16 9:00:00 EVENT [employer]FF MEMBER, Duration: 30 day, Stop date: 08/22/16 9:00:00 EVENT STAFF MEMBER 24 HR No Notes: Memoria Divalproex [...] form: ERTAB, Daily, Start date: 07/24/16 9:00:00 EVENT STAFF MEMBER, Duration: 30 day, Stop date: 08/22/16 9:00:00 EVENT STAFF MEMBER Insulin No Notes: Memoria Glargine 2-03 Same [...] Weight 92.273, kg, Start date: 07/24/16 9:00:00 EVENT STAFF MEMBER, Duration: 30 day, Stop date: 08/22/16 9:00:00 EVENT STAFF MEMBER 24 HR No Notes: Memoria Divalproex [...] form: ERTAB, Daily, Start date: 07/24/16 9:00:00 EVENT STAFF MEMBER, Duration: 30 day, Stop date: 08/22/16 9:00:00 EVENT STAFF MEMBER Insulin No Notes: Memoria Glargine 2-03 Same [...] Weight 92.273, kg, Start date: 07/24/16 9:00:00 EVENT STAFF MEMBER, Duration: 30 day, Stop date: 08/22/16 9:00:00 EVENT STAFF MEMBER 24 HR No Notes: Memoria Divalproex [...] form: ERTAB, Daily, Start date: 07/24/16 9:00:00 EVENT STAFF MEMBER, Duration: 30 day, Stop date: 08/22/16 9:00:00 EVENT STAFF MEMBER Insulin No Notes: Memoria Glargine 2-03 Same [...] oria 2-03 tab, l 15:00: Route: PO, [place] Drug form: ERTAB, Daily, Dosing Weight 92.273, kg, Start date: 07/24/16 9:00:00 EVENT STAFF MEMBER, Duration: 30 day, Stop date: 08/22/16 9:00:00 EVENT STAFF MEMBER 24 HR No Notes: Memoria Divalproex [...] form: ERTAB, Daily, Start date: 07/24/16 9:00:00 EVENT STAFF MEMBER, Duration: 30 day, Stop date: 08/22/16 9:00:00 EVENT STAFF MEMBER Insulin No Notes: Memoria Glargine 2-03 Same [...] oria 2-03 tab, l 15:00: Route: PO, [place] 00 Drug form: ERTAB, Daily, Dosing Weight 92.273, kg, Start date: 07/24/16 9:00:00 EVENT STAFF MEMBER, Duration: 30 day, Stop date: 08/22/16 9:00:00 EVENT STAFF MEMBER 24 HR No Notes: Memoria Divalproex [...] Memoria 2-03 Tablet l 15:00: should not [place] 00 be chewed or crushed. (Same as: Protonix) metoprolol No 100 mg, 2 Me moria extended 2-03 tab, l release 15:00: Route: PO, Herm naeem 00 Drug form: ERTAB, Daily, Start date: 07/24/16 9:00:00 EVENT STAFF MEMBER, Duration: 30 day, Stop date: 08/22/16 9:00:00 EVENT STAFF MEMBER Insulin No Notes: Memoria Glargine 2-03 Same [...] janice 2-03 (Same as: l 14:50: Zofran) [place] 00 MEDICATION WASTE Product Size: 4 mg Product Wasted: ___ mg Morphine No Notes: Memoria 2-03 (Same l 14:50: as:MORPhin [place] 00 e Sulfate) Ondansetron No Notes: Mendoza [...] Roll in l Human 13:30: palms of [place] 00 hands gently; Do not shake vigorously . (Same as: NovoOkta) "single patient use only" WASTE: F/P - [...] Roll in l Human 13:30: palms of [place] 00 hands gently; Do not shake vigorously . (Same as: NovoLOG) "single patient use only" WASTE: F/P - Black; E - Municipal Trash Bin Stable for 28 days at room temperatur e. Expires in days from ____Date Insulin, No Notes: Memoria Aspart, 2-03 Roll in l Human 13:30: palms of [place] 00 hands gently; Do not shake vigorously . (Same as: NovoLOG) "single patient use only" WASTE: F/P - Black; E - Municipal Trash Bin Stable for 28 days at room temperatur e. Expires in days from ____Date Insulin, No Notes: Memoria Aspart, 2-03 Roll in l Human 13:30: palms of [place] 00 hands gently; Do not shake vigorously [...] Memoria 2-03 Same as l 11:28: Dilaudid [place] 00 Dilaudid No Notes: Memoria 2-03 Same as l 11:28: Dilaudid [place] 00 Dilaudid No Notes: Memoria 2-03 Same [...] 2-03 Route: IM, l 08:40: Drug form: [place] 00 PDR/INJ, PRN, Dosing Weight 92.273, kg, PRN Blood Glucose Results, Start date: 07/24/16 2:40:00 EVENT STAFF MEMBER, Duration: 30 day, Stop date: 08/23/16 2:39:00 EVENT STAFF MEMBER Dextrose 2017-0 No 25 gm, 50 Mendoza janice 50% Syringe 2-03 mL, Route: l 08:40: IVP, Drug [place] 00 Form: INJ, Dosing Weight 92.273, kg, PRN, PRN Blood Glucose Results, Start date: 07/24/16 2:40:00 EVENT STAFF MEMBER, Duration: 30 day, Stop date: 08/23/16 2:39:00 EVENT STAFF MEMBER Insulin, 2017-0 No Notes: Memoria Aspart, 2-03 [...] 2-03 Route: IM, l 08:40: Drug form: [place] 00 PDR/INJ, PRN, Dosing Weight 92.273, kg, PRN Blood Glucose Results, Start date: 07/24/16 2:40:00 EVENT STAFF MEMBER, Duration: 30 day, Stop date: 08/23/16 2:39:00 EVENT STAFF MEMBER Dextrose 2017-0 No 25 gm, 50 Mendoza janice 50% Syringe 2-03 mL, Route: l 08:40: IVP, Drug [place] 00 Form: INJ, Dosing Weight 92.273, kg, PRN, PRN Blood Glucose Results, Start date: 07/24/16 2:40:00 EVENT STAFF MEMBER, Duration: 30 day, Stop date: 08/23/16 2:39:00 EVENT STAFF MEMBER Insulin, 2017-0 No Notes: Memoria Aspart, 2-03 [...] Blood Glucose Results, Start date: 07/24/16 2:40:00 EVENT STAFF MEMBER, Duration: 30 day, Stop date: 08/23/16 2:39:00 EVENT STAFF MEMBER Dextrose 2016-0 No 25 gm, 50 Mendoza janice 50% Syringe 2-03 mL, Route: l 08:40: IVP, Drug [place] 00 Form: INJ, Dosing Weight 92.273, kg, PRN, PRN Blood Glucose Results, Start date: 07/24/16 2:40:00 EVENT STAFF MEMBER, Duration: 30 day, Stop date: 08/23/16 2:39:00 EVENT STAFF MEMBER Insulin, 2017-0 No Notes: Memoria Aspart, 2-03 [...] 2-03 Route: IM, l 08:40: Drug form: [place] 00 PDR/INJ, PRN, Dosing Weight 92.273, kg, PRN Blood Glucose Results, Start date: 07/24/16 2:40:00 EVENT STAFF MEMBER, Duration: 30 day, Stop date: 08/23/16 2:39:00 EVENT STAFF MEMBER Dextrose 2016-0 No 25 gm, 50 Mendoza janice 50% Syringe 2-03 mL, Route: l 08:40: IVP, Drug [place] 00 Form: INJ, Dosing Weight 92.273, kg, PRN, PRN Blood Glucose Results, Start date: 07/24/16 2:40:00 EVENT STAFF MEMBER, Duration: 30 day, Stop date: 08/23/16 2:39:00 EVENT STAFF MEMBER Insulin, 2017-0 No Notes: Memoria Aspart, 2-03 [...] 2-03 Route: IM, l 08:40: Drug form: [place] 00 PDR/INJ, PRN, Dosing Weight 92.273, kg, PRN Blood Glucose Results, Start date: 07/24/16 2:40:00 EVENT STAFF MEMBER, Duration: 30 day, Stop date: 08/23/16 2:39:00 EVENT STAFF MEMBER Dextrose 2017 No 25 gm, 50 Mendoza janice 50% Syringe 2-03 mL, Route: l 08:40: IVP, Drug Vin 00 Form: INJ, Dosing Weight 92.273, kg, PRN, PRN Blood Glucose Results, Start date: 07/24/16 2:40:00 EVENT STAFF MEMBER, Duration: 30 day, Stop date: 08/23/16 2:39:00 EVENT STAFF MEMBER Docusate No Notes: Memoria 2-03 (Same as: l 07:20: Colace) [place] 00 (Do Not Crush) Ondansetron No Notes: [...] Memoria 2-03 (Same as: l 07:20: Colace) [place] 00 (Do Not Crush) Ondansetron No Notes: Mendoza janice 2-03 (Same as: l 07:20: Zofran) [place] 00 MEDICATION WASTE Product Size: 4 mg Product Wasted: ___ mg Docusate No Notes: Memoria 2-03 (Same as: l 07:20: Colace) [place] 00 (Do Not Crush) Ondansetron No Notes: Mendoza janice 2-03 (Same as: l 07:20: Zofran) Vin MEDICATION WASTE Product Size: 4 mg Product Wasted: ___ mg Docusate 2016- No Notes: Memoria 2-03 (Same as: l 07:20: Colace) Vin 00 (Do Not Crush) Ondansetron No Notes: Mendoza janice 2- (Same as: l 07:20: Zofran) Vin MEDICATION WASTE Product Size: 4 mg Product Wasted: ___ mg Lasix No Notes: Memoria 2-03 (Same as: l 06:01: Lasix) [place] 00 MEDICATION WASTE Product Size: 40 mg [...] Memoria 2-03 (Same as: l 06:01: Lasix) [place] 00 MEDICATION WASTE Product Size: 40 mg Product Wasted: ___ mg Lasix No Notes: Memoria 2-03 (Same as: l 06:01: Lasix) [place] 00 MEDICATION WASTE Product Size: 40 mg [...] 0.833 MG/ML - (Same as: 04:09: Duoneb) [place] Ipratropium 00 Rudyard 0.167 MG/ML Inhalant Solution [DuoNeb] Albuterol No Notes: Memori a 0.833 MG/ML 07-24 (Same as: 04:09: Duoneb) [place] Ipratropium 00 Rudyard 0.167 MG/ML Inhalant Solution [DuoNeb] Albuterol No Notes: Memori a 0.833 MG/ML 07-24 (Same as: 04:09: Duoneb) Vin Ipratropium 00 Rudyard 0.167 MG/ML Inhalant Solution [DuoNeb] Albuterol No Notes: Memori a 0.833 MG/ML 07-24 (Same as: 04:09: Duoneb) [place] Ipratropium 00 Rudyard 0.167 MG/ML Inhalant Solution [DuoNeb] Albuterol No Notes: Memori a 0.833 MG/ML 07-24 (Same as: 04:09: Duoneb) [place] Ipratropium 00 Rudyard 0.167 MG/ML Inhalant Solution [DuoNeb] Furosemide 2015-06 [...] INHALATION l 0.09 16:34: , PRN, PRN [place] MG/ACTUAT 00 as needed Metered for Dose wheezing, Inhaler use as needed for shortness of breath or wheezing, # 8 gm, 0 Refill(s) Aspirin 81 2015-06 Yes 81 mg = 1 Me moria MG Chewable 2-26 tab, PO, l Tablet 16:34: Daily, # [place] 00 30 tab, 0 Refill(s) Hydroxyzine 2015-06 Yes 50 mg = 1 M emoria Hydrochlori 2-26 cap, PO, l de 50 MG 16:34: TID, X 30 Herm naeem Oral 00 day, # 90 Capsule cap, 0 Refill(s) losartan 25 2015-06 Yes 25 mg = 1 M emoria mg oral 2-26 tab, PO, l tablet 16:34: Daily, # [place] 00 30 tab, 0 Refill(s) Furosemide 2015-06 [...] INHALATION l 0.09 16:34: , PRN, PRN [place] MG/ACTUAT 00 as needed Metered for Dose wheezing, Inhaler use as needed for shortness of breath or wheezing, # 8 gm, 0 Refill(s) Aspirin 81 2015-06 Yes 81 mg = 1 Me moria MG Chewable 2-26 tab, PO, l Tablet 16:34: Daily, # [place] 00 30 tab, 0 Refill(s) Hydroxyzine 2015-06 [...] PO, l Tablet 16:34: BID, # 120 Ndiia nn 00 tab, 0 Refill(s) atorvastati 2015-06 [...] INHALATION l 0.09 16:34: , PRN, PRN [place] MG/ACTUAT 00 as needed Metered for Dose [...] tab, PO, l tablet 16:34: Daily, # [place] 00 30 tab, 0 Refill(s) Furosemide 2015-06 Yes 80 mg = 2 Me moria 40 MG Oral 2-26 tab, PO, l Tablet 16:34: BID, # 120 Nidia nn 00 tab, 0 Refill(s) atorvastati 2015-06 Yes 40 mg = 1 M emoria n 40 mg 2-26 tab, PO, l oral tablet 16:34: Bedtime, # [place] 00 30 tab, 0 Refill(s) Insulin 2015-06 [...] INHALATION l 0.09 16:34: , PRN, PRN [place] MG/ACTUAT 00 as needed Metered for Dose wheezing, Inhaler use as needed for shortness of breath or wheezing, # 8 gm, 0 Refill(s) Aspirin 81 2015-06 Yes 81 mg = 1 Me moria MG Chewable 2-26 tab, PO, l Tablet 16:34: Daily, # [place] 00 30 tab, 0 Refill(s) Hydroxyzine 2015-06 [...] PO, l oral tablet 16:34: Bedtime, # [place] 00 30 tab, 0 Refill(s) Insulin 2015-06 [...] 2-26 (Same as: l 15:00: Lasix) May [place] 00 cause GI upset. Give with food or milk. Lasix 2015-06 No Notes: Memoria 2-26 (Same as: l 15:00: Lasix) May [place] 00 cause GI upset. Give with food or milk. Lasix 2015-06 No Notes: Memoria 2-26 (Same as: l 15:00: Lasix) May [place] 00 cause GI upset. Give with food or milk. Lasix 2015-06 No Notes: Memoria 2-26 (Same as: l 15:00: Lasix) May [place] 00 cause GI upset. Give with food or milk. Lasix 2015-06 No Notes: Memoria 2-26 (Same as: l 15:00: Lasix) May [place] 00 cause GI upset. Give with food or milk. Magnesium 2015-06 No Notes: Memori a Oxide 2-24 (Same as: l 13:36: Mag-Ox [place] 00 400) Magnesium oxide 527ap=485q g elemental magnesium Dose=____m g magnesium oxide (___mg elemental magnesium) Magnesium 2015-06 No Notes: Memori a Oxide 2-24 (Same as: l 13:36: Mag-Ox [place] 00 400) Magnesium oxide 647zx=538s g elemental magnesium Dose=____m g magnesium oxide (___mg elemental magnesium) Magnesium 2015-06 No Notes: Memori a Oxide 2-24 (Same as: l 13:36: [facility]-Ox Vin 400) Magnesium oxide 895wz=677x g elemental magnesium Dose=____m g magnesium oxide (___mg elemental magnesium) Magnesium 2015-06 No Notes: Memori a Oxide 2-24 (Same as: l 13:36: [facility]-Ox [place] 400) Magnesium oxide 224mf=237y g elemental magnesium Dose=____m g magnesium oxide (___mg elemental magnesium) Magnesium 2015-06 No Notes: Memori a Oxide 2-24 (Same as: l 13:36: [facility]-Ox [place] 400) Magnesium oxide 897km=150k g elemental magnesium Dose=____m g magnesium oxide (___mg elemental magnesium) Magnesium 2015-06 No Notes: Memori a Oxide 2-24 (Same as: l 09:47: [facility]-Ox [place] 400) Magnesium oxide 872dv=005n g elemental magnesium Dose=____m g magnesium oxide (___mg elemental magnesium) Magnesium 2015-06 No Notes: Memori a Oxide 2-24 (Same as: l 09:47: [facility]-Ox Vin 400) Magnesium oxide 236af=526g g elemental magnesium Dose=____m g magnesium oxide (___mg elemental magnesium) Magnesium 2015-06 No Notes: Memori a Oxide 2-24 (Same as: l 09:47: [facility]-Ox Vin 400) Magnesium oxide 163mt=951t g elemental magnesium Dose=____m g magnesium oxide (___mg elemental magnesium) Magnesium 2015-06 No Notes: Memori a Oxide 2-24 (Same as: l 09:47: [facility]-Ox Vin 400) Magnesium oxide 481gi=884r g elemental magnesium Dose=____m g magnesium oxide (___mg elemental magnesium) Magnesium 2015-06 No Notes: Memori a Oxide 2-24 (Same as: l 09:47: [facility]-Ox [place] 400) Magnesium oxide 181me=964r g elemental magnesium Dose=____m g magnesium oxide [...] May interfere w/enteral feedings Take With Food Norvasc 2015-06 No Notes: Memoria 2-24 (Same as: l 00:00: Norvasc) Vin 00 Wellbutrin 2015-06 No Notes: Memor ia XL 2-24 (Same as: l 00:00: Wellbutrin [place] 00 XL) "Do Not Crush" Norvasc 2015-06 No Notes: Memoria 2-24 (Same as: l 00:00: Norvasc) Vin 00 Wellbutrin 2015-06 No Notes: Memor ia XL 2-24 (Same as: l 00:00: Wellbutrin [place] 00 XL) "Do Not Crush" Norvasc 2015-06 No Notes: Memoria 2-24 (Same as: l 00:00: Norvasc) [place] 00 Wellbutrin 2015-06 No Notes: Memor ia XL 2-24 (Same as: l 00:00: Wellbutrin [place] 00 XL) "Do Not Crush" Norvasc 2015-06 No Notes: Memoria 2-24 (Same as: l 00:00: Norvasc) Vin 00 Wellbutrin 2015-06 No Notes: Memor ia XL 2-24 (Same as: l 00:00: Wellbutrin [place] 00 XL) "Do Not Crush" Norvasc 2015-06 No Notes: Memoria 2-24 (Same as: l 00:00: Norvasc) Vin 00 Wellbutrin 2015-06 No Notes: Memor ia XL 2-24 (Same as: l 00:00: Wellbutrin [place] 00 XL) "Do Not Crush" Insulin 2015-06 No Notes: Memoria Glargine 2-23 [...] tab, PO, l tablet 15:35: Daily, 0 [place] 00 Refill(s) amLODIPine 2015-06 No 10 mg = 1 Me moria 10 mg oral 2-23 tab, PO, l tablet 15:35: Daily, 0 [place] 00 Refill(s) pravastatin 2015-06 No 40 mg [...] tab, PO, l tablet 15:35: Daily, 0 [place] 00 Refill(s) amLODIPine 2015-06 No 10 mg = 1 Me moria 10 mg oral 2-23 tab, PO, l tablet 15:35: Daily, 0 [place] 00 Refill(s) pravastatin 2015-06 No 40 mg = 1 M emoria 40 mg oral 2-23 tab, PO, l tablet 15:35: Daily, 0 Vin 00 Refill(s) Sertraline 2015-06 Yes 200 mg = 2 M emoria 100 MG Oral 2-23 tab, PO, l Tablet 15:27: Daily, 0 [place] [Zoloft] 00 Refill(s) pantoprazol 2015-06 Yes 40 mg = 1 M emoria e 40 MG 2-23 tab, PO, l Enteric 15:27: Daily, 0 Jake n Coated 00 Refill(s) Tablet [Protonix] gabapentin 2015-06 Yes 1 CAP PO Mem oria 300 MG Oral 2-23 BID AND 1 l Capsule 15:27: CAP AT [place] 00 BEDTIME, 0 Refill(s) Insulin, 2015-06 No [...] tab, PO, l Tablet 15:27: Daily, 0 [place] [Zoloft] 00 Refill(s) pantoprazol 2015-06 Yes 40 mg = 1 M emoria e 40 MG 2-23 tab, PO, l Enteric 15:27: Daily, 0 Jake n Coated 00 Refill(s) Tablet [Protonix] gabapentin 2015-06 Yes 1 CAP PO Mem oria 300 MG Oral 2-23 BID AND 1 l Capsule 15:27: CAP AT [place] 00 BEDTIME, 0 Refill(s) Insulin, 2015-06 No [...] tab, PO, l Tablet 15:27: Daily, 0 [place] [Zoloft] 00 Refill(s) pantoprazol 2015-06 Yes 40 [...] tab, PO, l Tablet 15:27: Daily, 0 [place] [Zoloft] 00 Refill(s) pantoprazol 2015-06 Yes 40 [...] 2015-06 No Notes: Memor ia MG Chewable -22 Take with l Tablet 15:00: food. gabapentin [...] Weight 86.364, kg, Start date: 06/11/16 9:00:00 EVENT STAFF MEMBER, Duration: 30 day, Stop date: 07/10/16 9:00:00 EVENT STAFF MEMBER Insulin 2015-06 No Notes: Memoria Glargine [...] Weight 86.364, kg, Start date: 06/11/16 9:00:00 EVENT STAFF MEMBER, Duration: 30 day, Stop date: 07/10/16 9:00:00 EVENT STAFF MEMBER Insulin 2015-06 No Notes: Memoria Glargine [...] Weight 86.364, kg, Start date: 06/11/16 9:00:00 EVENT STAFF MEMBER, Duration: 30 day, Stop date: 07/10/16 9:00:00 EVENT STAFF MEMBER Insulin 2015-06 No Notes: Memoria Glargine [...] Weight 86.364, kg, Start date: 06/11/16 9:00:00 EVENT STAFF MEMBER, Duration: 30 day, Stop date: 07/10/16 9:00:00 EVENT STAFF MEMBER Insulin 2015-06 No Notes: Memoria Glargine [...] Weight 86.364, kg, Start date: 06/11/16 9:00:00 EVENT STAFF MEMBER, Duration: 30 day, Stop date: 07/10/16 9:00:00 EVENT STAFF MEMBER Insulin 2015-06 No Notes: Memoria Glargine 2-22 Same as: l 100 UNT/ML 15:00: Lantus) Do H ermann Injectable 00 not hold Solution insulin [Lantus] without contacting prescriber WASTE: F/P - Black; E - Municipal Trash Bin Zoloft 2015-06 No Notes: Memoria 2-22 (Same as: l 15:00: Zoloft) [place] 00 Insulin, 2015-06 No Notes: Memoria Aspart, [...] Roll in l Human 12:55: palms of [place] 00 hands gently; Do not shake vigorously . (Same as: NovoLOG) "single patient use only" WASTE: F/P - Black; E - Municipal Trash Bin Stable for 28 days at room temperatur e. Expires in days from ____Date Insulin, 2015-06 No Notes: Memoria Aspart, 2-22 Roll in l Human 12:55: palms of [place] 00 hands gently; Do not shake vigorously [...] sodium, 2-22 porcine l porcine 06:00: heparin [place] 2500 UNT/ML 00 Injectable Solution heparin 2015-06 No Notes: Memoria sodium, 2-22 porcine l porcine 06:00: heparin [place] 2500 UNT/ML 00 Injectable Solution heparin 2015-06 [...] MG/ML -22 (Same as: l 03:00: Duoneb) [place] Ipratropium 00 Rudyard 0.167 MG/ML Inhalant Solution [DuoNeb] gabapentin 2015-06 No 300 mg, Mendoza janice 300 MG Oral 08-12 Route: PO, l Capsule 03:00: Drug form: Herm naeem 00 CAP, Q12H, Dosing Weight 86.364, kg, (CrCl 30 - 59 ml/min), Start date: 06/10/16 21:00:00 EVENT STAFF MEMBER, Duration: 30 day, Stop date: 07/10/16 9:00:00 EVENT STAFF MEMBER divalproex 2015-06 No Notes: Memor ia sodium -22 (Same as: l 03:00: Depakote [place] 00 ER) Once daily dosing; indicated for migraines. Divalproex sodium extended-r elease tab. Do not chew or crush. "Do Not Crush" Losartan 2015-06 No Notes: Memoria 2-22 (Same as: l 03:00: Cozaar) Vin 00 Albuterol 2015-06 No Notes: Memori a 0.833 MG/ML -22 (Same as: l 03:00: Duoneb) [place] Ipratropium 00 Rudyard 0.167 MG/ML Inhalant Solution [DuoNeb] gabapentin 2015-06 No 300 mg, Mendoza janice 300 MG Oral 222 Route: PO, l Capsule 03:00: Drug form: Herm naeem 00 CAP, Q12H, Dosing Weight 86.364, kg, (CrCl 30 - 59 ml/min), Start date: 06/10/16 21:00:00 EVENT STAFF MEMBER, Duration: 30 day, Stop date: 07/10/16 9:00:00 EVENT STAFF MEMBER divalproex 2015-06 No Notes: Memor ia sodium 2-22 (Same as: l 03:00: Depakote Vin 00 ER) Once daily dosing; indicated for migraines. Divalproex sodium extended-r elease tab. Do not chew or crush. "Do Not Crush" Losartan 2015-06 No Notes: Memoria 2-22 (Same as: l 03:00: Cozaar) [place] 00 Albuterol 2015-06 No Notes: Memori a 0.833 MG/ML 2-22 (Same as: l / 03:00: Duoneb) [place] Ipratropium 00 Rudyard 0.167 MG/ML Inhalant Solution [DuoNeb] gabapentin 2015-06 No 300 mg, Mendoza janice 300 MG Oral 2-22 Route: PO, l Capsule 03:00: Drug form: Herm naeem 00 CAP, Q12H, Dosing Weight 86.364, kg, (CrCl 30 - 59 ml/min), Start date: 06/10/16 21:00:00 EVENT STAFF MEMBER, Duration: 30 day, Stop date: 07/10/16 9:00:00 EVENT STAFF MEMBER divalproex 2015-06 No Notes: Memor ia sodium 2-22 (Same as: l 03:00: Depakote [place] 00 ER) Once daily dosing; indicated for migraines. Divalproex sodium extended-r elease tab. Do not chew or crush. "Do Not Crush" Losartan 2015-06 No Notes: Memoria 2-22 (Same as: l 03:00: Cozaar) Vin 00 Albuterol 2015-06 No Notes: Memori a 0.833 MG/ML 2-22 (Same as: l / 03:00: Duoneb) Vin Ipratropium 00 Rudyard 0.167 MG/ML Inhalant Solution [DuoNeb] gabapentin 2015-06 No 300 mg, Mendoza janice 300 MG Oral 2-22 Route: PO, l Capsule 03:00: Drug form: Herm naeem 00 CAP, Q12H, Dosing Weight 86.364, kg, (CrCl 30 - 59 ml/min), Start date: 06/10/16 21:00:00 EVENT STAFF MEMBER, Duration: 30 day, Stop date: 07/10/16 9:00:00 EVENT STAFF MEMBER divalproex 2015-06 No Notes: Memor ia sodium 2-22 (Same as: l 03:00: Depakote Vin 00 ER) Once daily dosing; indicated for migraines. Divalproex sodium extended-r elease tab. Do not chew or crush. "Do Not Crush" Losartan 2015-06 No Notes: Memoria 2-22 (Same as: l 03:00: Cozaar) [place] 00 Albuterol 2015-06 No Notes: Memori a 0.833 MG/ML -22 (Same as: l / 03:00: Duoneb) Vin Ipratropium 00 Rudyard 0.167 MG/ML Inhalant Solution [DuoNeb] gabapentin 2015-06 No 300 mg, Mendoza janice 300 MG Oral 22 Route: PO, l Capsule 03:00: Drug form: Herm naeem 00 CAP, Q12H, Dosing Weight 86.364, kg, (CrCl 30 - 59 ml/min), Start date: 06/10/16 21:00:00 EVENT STAFF MEMBER, Duration: 30 day, Stop date: 07/10/16 9:00:00 EVENT STAFF MEMBER divalproex 2015-06 No Notes: Memor ia sodium 2-22 (Same as: l 03:00: Depakote [place] 00 ER) Once daily dosing; indicated for [...] Blood Glucose Results, Start date: 06/10/16 18:50:00 EVENT STAFF MEMBER, Duration: 30 day, Stop date: 07/10/16 18:49:00 EVENT STAFF MEMBER Glucagon 2015-06 No 1 mg, Memoria 2-22 Route: IM, l 00:50: Drug form: Vin 00 PDR/INJ, PRN, Dosing Weight 86.364, kg, PRN Blood Glucose Results, Start date: 06/10/16 18:50:00 EVENT STAFF MEMBER, Duration: 30 day, Stop date: 07/10/16 18:49:00 EVENT STAFF MEMBER Insulin, 2015-06 No Notes: Memoria Aspart, 2-22 Roll in l Human 00:50: palms of [place] 00 hands gently; Do not shake vigorously [...] Blood Glucose Results, Start date: 06/10/16 18:50:00 EVENT STAFF MEMBER, Duration: 30 day, Stop date: 07/10/16 18:49:00 EVENT STAFF MEMBER Glucagon 2015-06 No 1 mg, Memoria 2-22 Route: IM, l 00:50: Drug form: Vin 00 PDR/INJ, PRN, Dosing Weight 86.364, kg, PRN Blood Glucose Results, Start date: 06/10/16 18:50:00 EVENT STAFF MEMBER, Duration: 30 day, Stop date: 07/10/16 18:49:00 EVENT STAFF MEMBER Insulin, 2015-06 No Notes: Memoria Aspart, 2-22 [...] Syringe 2-22 25 mL, l 00:50: Route: [place] 00 IVP, Drug Form: INJ, Dosing Weight 86.364, kg, PRN, PRN Blood Glucose Results, Start date: 06/10/16 18:50:00 EVENT STAFF MEMBER, Duration: 30 day, Stop date: 07/10/16 18:49:00 EVENT STAFF MEMBER Glucagon 2015-06 No 1 mg, Memoria 2-22 Route: IM, l 00:50: Drug form: Vin 00 PDR/INJ, PRN, Dosing Weight 86.364, kg, PRN Blood Glucose Results, Start date: 06/10/16 18:50:00 EVENT STAFF MEMBER, Duration: 30 day, Stop date: 07/10/16 18:49:00 EVENT STAFF MEMBER Insulin, 2015-06 No Notes: Memoria Aspart, 2-22 Roll in l Human 00:50: palms of [place] 00 hands gently; Do not shake vigorously . (Same as: NovoLOG) "single patient use only" WASTE: F/P - Black; E - Municipal Trash Bin Stable for 28 days at room temperatur e. Expires in days from ____Date Dextrose 2015-06 No 12.5 gm, Memor ia 50% Syringe 2-22 25 mL, l 00:50: Route: [place] 00 IVP, Drug Form: INJ, Dosing Weight 86.364, kg, PRN, PRN Blood Glucose Results, Start date: 06/10/16 18:50:00 EVENT STAFF MEMBER, Duration: 30 day, Stop date: 07/10/16 18:49:00 EVENT STAFF MEMBER Glucagon 2015-06 No 1 mg, Memoria 2-22 Route: IM, l 00:50: Drug form: [place] 00 PDR/INJ, PRN, Dosing Weight 86.364, kg, PRN Blood Glucose Results, Start date: 06/10/16 18:50:00 EVENT STAFF MEMBER, Duration: 30 day, Stop date: 07/10/16 18:49:00 EVENT STAFF MEMBER Insulin, 2015-06 No Notes: Memoria Aspart, 2-22 [...] Syringe 2-22 25 mL, l 00:50: Route: [place] 00 IVP, Drug Form: INJ, Dosing Weight 86.364, kg, PRN, PRN Blood Glucose Results, Start date: 06/10/16 18:50:00 EVENT STAFF MEMBER, Duration: 30 day, Stop date: 07/10/16 18:49:00 EVENT STAFF MEMBER Glucagon 2015-06 No 1 mg, Memoria 2-22 Route: IM, l 00:50: Drug form: Vin 00 PDR/INJ, PRN, Dosing Weight 86.364, kg, PRN Blood Glucose Results, Start date: 06/10/16 18:50:00 EVENT STAFF MEMBER, Duration: 30 day, Stop date: 07/10/16 18:49:00 EVENT STAFF MEMBER Hydralazine 2015-06 No Notes: Mendoza janice 2-22 (Same as: l 00:36: Apresoline Vin 00 ) Push over 5 minutes Hydralazine 2015-06 No Notes: Mendoza janice 2-22 (Same as: l 00:36: Apresoline [place] 00 ) Push over 5 minutes Hydralazine [...] janice 2-22 (Same as: l 00:34: Apresoline [place] 00 ) May interfere w/enteral feedings Take With Food Hydralazine 2015-06 No Notes: Mendoza janice 2-22 (Same as: l 00:34: Apresoline Vin 00 ) May interfere w/enteral feedings Take With Food Hydralazine 2015-06 No Notes: Mendoza janice 2-22 (Same as: l 00:34: Apresoline [place] 00 ) May interfere w/enteral feedings Take With Food Hydralazine 2015-06 No Notes: Mendoza janice 2-22 (Same as: l 00:34: Apresoline [place] 00 ) May interfere w/enteral feedings Take With Food Hydralazine 2015-06 No Notes: Mendoza janice 2-22 (Same as: l 00:34: Apresoline [place] 00 ) May interfere w/enteral feedings Take [...] janice 2-22 Route: IV, l 00:06: ONCE, [place] 00 Dosing Weight 86.364, kg, Start date: 06/10/16 18:06:00 EVENT STAFF MEMBER, Stop date: 06/10/16 18:06:00 EVENT STAFF MEMBER Hydralazine 2015-06 No 10 mg, Mendoza janice 2-22 Route: IV, l 00:06: ONCE, [place] 00 Dosing Weight 86.364, kg, Start date: 06/10/16 18:06:00 EVENT STAFF MEMBER, Stop date: 06/10/16 18:06:00 EVENT STAFF MEMBER Hydralazine 2015-06 No 10 mg, Mendoza janice 2-22 Route: IV, l 00:06: ONCE, [place] 00 Dosing Weight 86.364, kg, Start date: 06/10/16 18:06:00 EVENT STAFF MEMBER, Stop date: 06/10/16 18:06:00 EVENT STAFF MEMBER Hydralazine 2015-06 No 10 mg, Mendoza janice 2-22 Route: IV, l 00:06: ONCE, Dosing Weight 86.364, kg, Start date: 06/10/16 18:06:00 EVENT STAFF MEMBER, Stop date: 06/10/16 18:06:00 EVENT STAFF MEMBER Hydralazine 2015-06 No 10 mg, Mendoza janice 2-22 Route: IV, l 00:06: ONCE, Dosing Weight 86.364, kg, Start date: 06/10/16 18:06:00 EVENT STAFF MEMBER, Stop date: 06/10/16 18:06:00 EVENT STAFF MEMBER hydrOXYzine 2015-06 No Notes: Mendoza janice [...] Weight 86.364, kg, Start date: 06/10/16 16:32:00 EVENT STAFF MEMBER, Stop date: 06/10/16 16:32:00 EVENT STAFF MEMBER Furosemide 2015-06 No 60 mg, Memor ia 2-21 Route: l 22:32: IVP, Drug form: INJ, ONCE, Dosing Weight 86.364, kg, Start date: 06/10/16 16:32:00 EVENT STAFF MEMBER, Stop date: 06/10/16 16:32:00 EVENT STAFF MEMBER Furosemide 2015-06 No 60 mg, Memor ia 08-11 Route: l 22:32: IVP, Drug [place] 00 form: INJ, ONCE, Dosing Weight 86.364, kg, Start date: 06/10/16 16:32:00 EVENT STAFF MEMBER, Stop date: 06/10/16 16:32:00 EVENT STAFF MEMBER Furosemide 2015-06 No 60 mg, Memor ia 08-11 Route: l 22:32: IVP, Drug Vin 00 form: INJ, ONCE, Dosing Weight 86.364, kg, Start date: 06/10/16 16:32:00 EVENT STAFF MEMBER, Stop date: 06/10/16 16:32:00 EVENT STAFF MEMBER Furosemide 2015-06 No 60 mg, Memor ia 08-11 Route: l 22:32: IVP, Drug Vin 00 form: INJ, ONCE, Dosing Weight 86.364, kg, Start date: 06/10/16 16:32:00 EVENT STAFF MEMBER, Stop date: 06/10/16 16:32:00 EVENT STAFF MEMBER Lasix 2015-06 No Notes: Memoria 08-11 (Same as: l 17:22: Lasix) [place] 00 MEDICATION WASTE Product Size: 40 mg Product Wasted: _0__ mg Albuterol 2015-06 No Notes: Memori a 0.833 MG/ML - (Same as: :22: Duoneb) Vin Ipratropium 00 Rudyard 0.167 MG/ML Inhalant Solution [DuoNeb] Lasix 2015-06 No Notes: Memoria 2- (Same as: l 17:22: Lasix) [place] 00 MEDICATION WASTE Product Size: 40 mg Product Wasted: _0__ mg Albuterol 2015-06 No Notes: Memori a 0.833 MG/ML -21 (Same as: l 17:22: Duoneb) [place] Ipratropium 00 Rudyard 0.167 MG/ML Inhalant Solution [DuoNeb] Lasix 2015-06 No Notes: Memoria 2-21 (Same as: l 17:22: Lasix) Vin 00 MEDICATION WASTE Product Size: 40 mg Product Wasted: _0__ mg Albuterol 2015-06 No Notes: Memori a 0.833 MG/ML 08-11 (Same as: :22: Duoneb) [place] Ipratropium 00 Rudyard 0.167 MG/ML Inhalant Solution [DuoNeb] Lasix 2015-06 No Notes: Memoria 08-11 (Same as: l 17:22: Lasix) Vin 00 MEDICATION WASTE Product Size: 40 mg Product Wasted: _0__ mg Albuterol 2015-06 No Notes: Memori a 0.833 MG/ML 08-11 (Same as: 17:22: Duoneb) [place] Ipratropium 00 Rudyard 0.167 MG/ML Inhalant Solution [DuoNeb] Lasix 2015-06 No Notes: Memoria 08-11 (Same as: l 17:22: Lasix) Vin 00 MEDICATION WASTE Product Size: 40 mg Product Wasted: _0__ mg Albuterol 2015-06 No Notes: Memori a 0.833 MG/ML 08-11 (Same as: :22: Duoneb) [place] Ipratropium 00 Rudyard 0.167 MG/ML Inhalant Solution [DuoNeb] Promethazin Yes 25 mg = 1 M emoria e 06-26 supp, [place], l Hydrochlori 14:45: Q6H, Jake n de 25 MG 00 Nausea & Rectal Vomiting, Suppository # 9 supp, [Phenergan] 0 Refill(s) Promethazin 2014-0 Yes 25 mg = 1 M emoria e -06 supp, [place], l Hydrochlori 14:45: Q6H, Jake n de 25 MG 00 Nausea & Rectal Vomiting, Suppository # 9 supp, [Phenergan] 0 Refill(s) Promethazin 2014-0 Yes 25 mg = 1 M emoria e 1-06 supp, [place], l Hydrochlori 14:45: Q6H, Jkae n de 25 MG 00 Nausea & Rectal Vomiting, Suppository # 9 supp, [Phenergan] 0 Refill(s) Promethazin 2014- Yes 25 mg = 1 M emoria e -06 supp, [place], l Hydrochlori 14:45: Q6H, Jake n de 25 MG 00 Nausea & Rectal Vomiting, Suppository # 9 supp, [Phenergan] 0 Refill(s) Promethazin Yes 25 mg = 1 M emoria e 1-06 supp, [place], l Hydrochlori 14:45: Q6H, Jake [...] ne 06-26 Same as: l 11:48: Dilaudid [place] Hydromorpho No Notes: Mendoza janice ne 06-26 Same as: l 11:48: Dilaudid [place] Hydromorpho No Notes: Mendoza janice ne 06-26 Same as: l 11:48: Dilaudid [place] Hydromorpho No Notes: Mendoza janice ne 06-26 Same as: l 11:48: Dilaudid Vin Hydromorpho No Notes: Mendoza janice ne 06-26 Same as: l 11:48: Dilaudid [place] 00 hydrOXYzine Yes 0 Memori a pamoate 06-26 Refill(s) l 11:18: Vin 00 Dicyclomine 2015-0 Yes 0 Memori a 1-06 Refill(s) l 11:18: [place] 00 hydrOXYzine 2015-0 Yes 0 Memori a pamoate 1-06 Refill(s) l 11:18: Vin 00 Dicyclomine 2015-0 Yes 0 Memori a [...] Memori a 1-06 Refill(s) l 11:17: Clonidine 2014-0 Yes 0 Memoria 1-06 Refill(s) l [...] a 1-06 (Same as: l 10:56: Ativan) [place] 00 Sodium 0 No 2,000 mL, Memori a Chloride 1-06 1,000 l 0.154 10:56: ml/hr, [place] MEQ/ML 00 Infuse Injectable Over: 2 Solution hr, Route: IV, 2,000, Drug form: INJ, ONCE, Priority: STAT, Dosing Weight 75 kg, Start date: 06/26/14 4:56:00, Duration: 1 doses or times, Stop date: 06/26/14 4:56:00 Lorazepam 2014-0 No Notes: Memori a 1-06 (Same as: l 10:56: Ativan) [place] 00 Sodium 0 No 2,000 mL, Memori a [...] (Same as: l 10:56: Ativan) Vin 00 Sodium 0 No 2,000 mL, Memori a Chloride 06-26 [...] Rate: 125 l 0.9% IV 04:10: ml/hr, [place] 1,000 mL 00 Infuse over: 8 hr, Route: IV, Dosing Weight 63.636 kg, Total Volume: 1,000, Start date: 04/14/13 23:10:00, Duration: 30 day, Stop date: 05/14/13 23:09:00 Saline 2012-06 No Matthew Gary 5 mL, Memor ia Flush 0.9% 0-26 Marry Route: l 04:10: IVP, Drug [place] 00 Form: INJ, Dosing Weight 63.636, kg, PRN, [...] 0-26 Marry Route: l 04:10: IVP, Drug [place] 00 Form: INJ, Dosing Weight 63.636, kg, PRN, [...] Rate: 125 l 0.9% IV 04:10: ml/hr, [place] 1,000 mL 00 Infuse over: 8 hr, [...] 30 day, Stop date: 05/14/13 23:09:00 morphine 0 No Hung Murillo 5 mg, Me moria [...] 9-25 Marx Route: l 01:15: IVP, ONCE, [place] Dosing Weight 58.636, kg, Priority: STAT, Start date: 03/14/12 20:15:00, Stop date: 03/14/12 20:15:00 morphine 2012-0 No Hung Murillo 5 mg, Me moria Sulfate 9-25 Marx Route: l 01:15: IVP, ONCE, Vin Dosing Weight 58.636, kg, Priority: STAT, Start date: 03/14/12 20:15:00, Stop date: 03/14/12 20:15:00 morphine 2011-0 No Hung Murillo 5 mg, Me moria Sulfate 9-25 Marx Route: l 01:15: IVP, ONCE, [place] 00 Dosing Weight 58.636, kg, Priority: STAT, [...] Marx Rate: 500 l 0.9% 23:45: ml/hr, [place] (Bolus) IV 00 Infuse 500 mL over: [...] 9-24 Marx Rate: l 0.9% 22:19: 1,000 [place] (Bolus) IV 00 ml/hr, 500 mL Infuse [...] 9-24 Marx Rate: l 0.9% 22:19: 1,000 [place] (Bolus) IV 00 ml/hr, 500 mL Infuse over: 0.5 hr, Route: IV, kg, Total Volume: 500, Bolus dose, Priority: STAT, Start date: 03/14/12 17:19:00, Duration: 1 doses or times, Stop date: 03/14/12 17:48:00 ondansetron 2011-0 No Hung Murillo 4 mg, Memoria 9-24 Marx Route: l 22:19: IVP, ONCE, [place] Dosing Weight 58.636, kg, Priority: STAT, Start date: 03/14/12 17:19:00, Stop date: 03/14/12 17:19:00 morphine 2011-0 No Hung Murillo 5 mg, Me moria Sulfate 9-24 Marx Route: l 22:19: IVP, ONCE, [place] 00 Dosing Weight 58.636, kg, Priority: STAT, [...] 9-24 Marx Route: l 22:19: IVP, ONCE, [place] Dosing Weight 58.636, kg, Priority: STAT, Start date: 03/14/12 17:19:00, Stop date: 03/14/12 17:19:00 pantoprazol 2011-0 No Hung Murillo 40 mg, Memoria e 9-24 Marx Route: l 22:19: IVP, ONCE, [place] 00 Dosing Weight 58.636, kg, For IV [...] insulin No Blake 10 unit, 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 6-11 Deangelo 0.1 mL, l H 02:00: Brisa Route: SUB-Q, Drug form: INJ, Bedtime, Start [...] 2011-0 No Blake 10 unit, 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 6-11 Deangelo 0.1 mL, l H 02:00: Route: [place] SUB-Q, Drug form: INJ, Bedtime, Start date: [...] 2011-0 No Blake 10 unit, 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 6-11 Deangelo 0.1 mL, l H 02:00: [...] 2011-0 No Blake 10 unit, 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 6-11 Deangelo 0.1 mL, l H 02:00: Route: [place] SUB-Q, Drug form: INJ, Bedtime, Start date: 11/29/11 21:00:00, Duration: 30 day, Stop date: 12/28/11 21:00:00 Insulin 2011-0 No Blake 8 unit, Mendoza janice regular 6-11 Deangelo 0.08 mL, l 02:00: Route: [place] SUB-Q, Drug form: SOLN, Bedtime, Start date: [...] Blake 120 mg, 3 Mem oria 6-11 Deagnelo cap, l 02:00: Brisa Route: PO, Her braden 00 Drug form: CAP, Bedtime, Start date: 11/29/11 21:00:00, Duration: 30 day, Stop date: 12/28/11 21:00:00 insulin 2011-0 No Blake 10 unit, 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 6-11 Deangelo 0.1 mL, l H 02:00: Brisa Route: Vin 00 SUB-Q, Drug form: INJ, Bedtime, Start date: 11/29/11 21:00:00, Duration: 30 day, Stop date: 12/28/11 21:00:00 Insulin 2011-0 No Blake 8 unit, Mendoza janice regular 6-11 Deangelo 0.08 mL, l 02:00: Brisa Route: [place] SUB-Q, Drug form: SOLN, Bedtime, Start date: [...] 6-10 Omidvar Route: l 21:33: IVP, ONCE, [place] 00 Start date: 11/29/11 16:33:00, Stop date: 11/29/11 16:33:00 morphine 2011-0 No [place] 2 mg, Memori a Sulfate 6-10 Omidvar Route: l 21:33: IVP, ONCE, [place] 00 Start date: 11/29/11 16:33:00, Stop date: 11/29/11 16:33:00 morphine 2011-0 No [place] 2 mg, Memori a Sulfate 6-10 Omidvar Route: l 21:33: IVP, ONCE, Vin 00 Start date: 11/29/11 16:33:00, Stop date: 11/29/11 16:33:00 morphine 2011-0 No [place] 2 mg, 0.5 Me moria Sulfate 6-10 Omidvar mL, Route: l 21:32: IVP, Drug [place] 00 form: INJ, ONCE, Start date: 11/29/11 16:32:00, Stop date: 11/29/11 16:32:00 morphine 2011-0 No [place] 2 mg, 0.5 Me moria Sulfate 6-10 Omidvar mL, Route: l 21:32: IVP, Drug [place] 00 form: INJ, ONCE, Start date: 11/29/11 16:32:00, Stop date: 11/29/11 16:32:00 morphine 2011-0 No [place] 2 mg, 0.5 Me moria Sulfate 6-10 Omidvar mL, Route: l 21:32: IVP, Drug [place] 00 form: INJ, ONCE, Start date: 11/29/11 16:32:00, Stop date: 11/29/11 16:32:00 morphine 2011-0 No [place] 2 mg, 0.5 Me moria Sulfate 6-10 Omidvar mL, Route: l 21:32: IVP, Drug [place] 00 form: INJ, ONCE, Start date: 11/29/11 16:32:00, Stop date: 11/29/11 16:32:00 morphine 2011-0 No [place] 2 mg, 0.5 Me moria Sulfate 6-10 Omidvar mL, Route: l 21:32: IVP, Drug [place] 00 form: INJ, ONCE, Start date: 11/29/11 [...] 30 day, Stop date: 12/29/11 14:15:00 insulin 2012-0 No Blake 14 unit, 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 6-10 Deangelo 0.14 mL, l H 14:00: Brisa Route: SUB-Q, Drug form: INJ, Daily, Start date: 11/29/11 9:00:00, Duration: 30 day, Stop date: 12/28/11 9:00:00 Insulin 2011-0 No Blake 10 unit, Mem oria regular 6-10 Deangelo 0.1 mL, l 14:00: Brisa Route: [place] 00 SUB-Q, Drug form: SOLN, Daily, Start [...] 2011-0 No Blake 14 unit, 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 6-10 Deangelo 0.14 mL, l H 14:00: Brisa Route: [place] 00 SUB-Q, Drug form: INJ, Daily, Start date: 11/29/11 9:00:00, Duration: 30 day, Stop date: 12/28/11 9:00:00 Insulin 2011-0 No Blake 10 unit, Mem oria regular 6-10 Deangelo 0.1 mL, l 14:00: Brisa Route: [place] SUB-Q, Drug form: SOLN, Daily, Start date: [...] 2011-0 No Blake 14 unit, 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 6-10 Deangelo 0.14 mL, l H 14:00: [...] tab, l 14:00: Brisa Route: PO, Her brdaen 00 Drug form: TAB, Daily, Start date: [...] 2011-0 No Blake 14 unit, 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 6-10 Deangelo 0.14 mL, l H 14:00: [...] 2011-0 No Blake 14 unit, 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 6-10 Deangelo 0.14 mL, l H 14:00: Brisa Route: [place] 00 SUB-Q, Drug form: INJ, Daily, Start [...] Deangelo 0.1 mL, l 06:30: Brisa Route: [place] 00 SUB-Q, Drug form: SOLN, TID-Before Meals, [...] Deangelo 0.1 mL, l 06:30: Route: Vin SUB-Q, Drug form: SOLN, TID-Before [...] Deangelo 0.1 mL, l 06:30: Brisa Route: [place] 00 SUB-Q, Drug form: SOLN, TID-Before Meals, [...] Deangelo 0.1 mL, l 06:30: Brisa Route: [place] 00 SUB-Q, Drug form: SOLN, TID-Before Meals, [...] 30 day, Stop date: 12/29/11 1:29:00 normal 0 No Blake 1,000 mL, Mem [...] l IV 1,000 mL 06:29: Brisa ml/hr, [place] 00 Infuse over: 5 hr, Route: IV, Dosing Weight 57.273 kg, Total Volume: 1,000, Start date: 11/29/11 1:29:00, Duration: 30 day, Stop date: 12/29/11 1:28:00 normal 0 No Blake 1,000 mL, Mem oria saline 0.9% 6-10 Deangelo Rate: 200 l IV 1,000 mL 06:29: Brisa ml/hr, [place] 00 Infuse over: 5 hr, Route: IV, [...] 06:28: [facility] Drug form: braden 00 INJ, ONCE, Priority: [...] mL, Route: l 04:01: Brown IVP, Drug [place] 00 form: INJ, ONCE, Priority: STAT, Start date: 11/28/11 23:01:00, Stop date: 11/28/11 23:01:00 metoclopram 2012-0 No Nikki 10 mg, 2 Memoria gadiel 6-10 Sarah mL, Route: l 04:01: Brown IVP, Drug [place] 00 form: INJ, ONCE, Priority: STAT, Start date: 11/28/11 23:01:00, Stop date: 11/28/11 23:01:00 metoclopram 2011-0 No Nikki 10 mg, 2 Memoria gadiel 6-10 Sarah mL, Route: l 04:01: Brown IVP, Drug [place] 00 form: INJ, ONCE, Priority: STAT, Start date: 11/28/11 23:01:00, Stop date: 11/28/11 23:01:00 metoclopram 2011-0 No Nikki 10 mg, 2 Memoria gadiel 6-10 Sarah mL, Route: l 04:01: Brown IVP, Drug [place] 00 form: INJ, ONCE, Priority: STAT, Start date: 11/28/11 23:01:00, Stop date: 11/28/11 23:01:00 metoclopram 2012-0 No Nikki 10 mg, 2 Memoria gadiel 6-10 Sarah mL, Route: l 04:01: Brown IVP, Drug [place] 00 form: INJ, ONCE, Priority: STAT, Start [...] mL, Route: l 02:31: Brown IVP, Drug [place] 00 form: INJ, ONCE, Priority: STAT, Start date: 11/28/11 21:31:00, Stop date: 11/28/11 21:31:00 NS (Bolus) 2012-0 No Arif Domenico 1,000 mL, Memoria IV 1,000 mL 6- Rate: l 22:48: 1,000 [place] 00 ml/hr, Infuse over: 1 hr, Route: IV, Dosing Weight 57.273 kg, Total Volume: 1,000, Start date: 11/28/11 17:48:00, Duration: 30 day, Stop date: 12/28/11 17:47:00 NS (Bolus) No Arif Domenico 1,000 mL, Memoria IV 1,000 mL 6- Rate: l 22:48: 1,000 [place] 00 ml/hr, Infuse over: 1 hr, Route: IV, Dosing Weight 57.273 kg, Total Volume: 1,000, Start date: 11/28/11 17:48:00, Duration: 30 day, Stop date: 12/28/11 17:47:00 NS (Bolus) No Arif Domenico 1,000 mL, Memoria IV 1,000 mL 6 Rate: l 22:48: 1,000 [place] 00 ml/hr, Infuse over: 1 hr, Route: [...] 1,000 mL 6 Rate: l 20:36: 1,000 [place] 00 ml/hr, Infuse over: 1 hr, Route: IV, Dosing Weight 57.273 kg, Total Volume: 1,000, Start date: 11/28/11 15:36:00, Duration: 30 day, Stop date: 12/28/11 15:35:00 NS (Bolus) No Arif Domenico 1,000 mL, Memoria IV 1,000 mL 11-27 Rate: l 20:36: 1,000 [place] 00 ml/hr, Infuse over: 1 hr, Route: IV, Dosing Weight 57.273 kg, Total Volume: 1,000, Start date: 11/28/11 15:36:00, Duration: 30 day, Stop date: 12/28/11 15:35:00 NS (Bolus) No Arif Domenico 1,000 mL, Memoria IV 1,000 mL 11-27 Rate: l 20:36: 1,000 [place] 00 ml/hr, Infuse over: 1 hr, Route: IV, Dosing Weight 57.273 kg, Total Volume: 1,000, Start date: 11/28/11 15:36:00, Duration: 30 day, Stop date: 12/28/11 15:35:00 NS (Bolus) No Arif Domenico 1,000 mL, Memoria IV 1,000 mL 11-27 Rate: l 20:36: 1,000 [place] 00 ml/hr, Infuse over: 1 hr, Route: [...] 6-09 mL, Route: l 20:35: IVP, Drug [place] 00 form: INJ, ONCE, Priority: STAT, Start date: 11/28/11 15:35:00, Stop date: 11/28/11 15:35:00 Ativan No Arif Domenico 2 mg, 1 Mem oria 6-09 mL, Route: l 20:35: IVP, Drug [place] 00 form: INJ, ONCE, Priority: STAT, Start [...] Hughes-Jason 8 unit, M emoria 100 3-30 [place] SUB-Q, l units/mL 17:47: [place] Q12H, 2 He rmann injectable 42 Pu vial, solution Substituti on Allowed, SOLN Novolin R Yes Hughes-Jason 8 unit, M emoria 100 3-30 [place] SUB-Q, l units/mL 17:47: [place] Q12H, 2 He rmann injectable 42 Pu vial, solution Substituti on Allowed, SOLN Novolin R Yes Hughes-Jason 8 unit, M emoria 100 3-30 [place] SUB-Q, l units/mL 17:47: [place] Q12H, 2 He rmann injectable 42 Pu vial, solution Substituti on Allowed, SOLN Novolin R 2011- Yes Hughes-Jason 8 unit, M emoria 100 3-30 [place] SUB-Q, l units/mL 17:47: [place] Q12H, 2 He rmann injectable 42 Pu vial, solution Substituti on Allowed, SOLN Novolin R Yes Hughes-Jason 8 unit, M emoria 100 3-30 [place] SUB-Q, l units/mL 17:47: [place] Q12H, 2 He rmann injectable 42 Pu vial, solution Substituti on Allowed, SOLN Novolin N Yes Hughes-Jason 10 unit, Memoria 100 3-30 [place] SUB-Q, l units/mL 17:46: Dawson Bedtime, H ermann subcutaneou 27 Pu 10 ml, s injection Substituti on Allowed, SUSP Novolin N Yes Hughes-Jason 10 unit, Memoria 100 3-30 [place] SUB-Q, l units/mL 17:46: [place] Bedtime, H ermann subcutaneou 27 Pu 10 ml, s injection Substituti on Allowed, SUSP Novolin N Yes Hughes-Jason 10 unit, Memoria 100 3-30 [place] SUB-Q, l units/mL 17:46: [place] Bedtime, H ermann subcutaneou 27 Pu 10 ml, s injection Substituti on Allowed, SUSP Novolin N Yes Hughes-Jason 10 unit, Memoria 100 3-30 [place] SUB-Q, l units/mL 17:46: [place] Bedtime, H ermann subcutaneou 27 Pu 10 ml, s injection Substituti on Allowed, SUSP Novolin N Yes Hughes-Jason 10 unit, Memoria 100 3-30 [place] SUB-Q, l units/mL 17:46: [place] Bedtime, H ermann subcutaneou 27 Pu 10 ml, s injection Substituti on Allowed, SUSP Novolin N Yes Hughes-Jason 14 unit, Memoria 100 3-30 [place] SUB-Q, l units/mL 17:44: [place] QAM, 1 Her braden subcutaneou 37 Pu vial, s injection Substituti on Allowed, SUSP Novolin N Yes Hughes-Jason 14 unit, Memoria 100 3-30 [place] SUB-Q, l units/mL 17:44: [place] QAM, 1 Her braden subcutaneou 37 Pu vial, s injection Substituti on Allowed, SUSP Novolin N Yes Hughes-Jason 14 unit, Memoria 100 3-30 [place] SUB-Q, l units/mL 17:44: [place] QAM, 1 Her braden subcutaneou 37 Pu vial, s injection Substituti on Allowed, SUSP Novolin N Yes Hughes-Ajson 14 unit, Memoria 100 3-30 [place] SUB-Q, l units/mL 17:44: [place] QAM, 1 Her braden subcutaneou 37 Pu vial, s injection Substituti on Allowed, SUSP Novolin N Yes Hughes-Jason 14 unit, Memoria 100 3-30 [place] SUB-Q, l units/mL 17:44: [place] QAM, 1 Her braden subcutaneou 37 Pu vial, s injection Substituti on Allowed, SUSP magnesium 2011-0 No Hughes-Jason 400 mg, 1 Memoria oxide 3-30 [place] tab, l 14:55: [place] Route: PO, Her braden 00 Pu Drug form: TAB, ONCE, Priority: STAT, Start date: 09/18/11 9:55:00, Stop date: 09/18/11 9:55:00 magnesium 2011-0 No Hughes-Jason 400 mg, 1 Memoria oxide 3-30 [place] tab, l 14:55: [place] Route: PO, Her braden 00 Pu Drug form: TAB, ONCE, Priority: STAT, Start date: 09/18/11 9:55:00, Stop date: 09/18/11 9:55:00 magnesium 2011-0 No Hughes-Jason 400 mg, 1 Memoria oxide 3-30 [place] tab, l 14:55: [place] Route: PO, Her braden 00 Pu Drug form: TAB, ONCE, Priority: STAT, Start date: 09/18/11 9:55:00, Stop date: 09/18/11 9:55:00 magnesium 2012-0 No Hughes-Jason 400 mg, 1 Memoria oxide 3-30 [place] tab, l 14:55: [place] Route: PO, Her braden 00 Pu Drug form: TAB, ONCE, Priority: STAT, Start date: 09/18/11 9:55:00, Stop date: 09/18/11 9:55:00 magnesium 2012-0 No Hughes-Jason 400 mg, 1 Memoria oxide 3-30 [place] tab, l 14:55: [place] Route: PO, Her braden 00 Pu Drug form: TAB, ONCE, Priority: STAT, Start date: 09/18/11 9:55:00, Stop date: 09/18/11 9:55:00 Insulin 2012-0 No Hughes-Jason 8 unit, Mem oria regular 3-30 [place] 0.08 mL, l 14:22: [place] Route: Vin 00 Pu SUB-Q, Drug form: SOLN, ONCE, Priority: STAT, Start date: 09/18/11 9:22:00, Stop date: 09/18/11 9:22:00 Insulin 2012-0 No Hughes-Jason 8 unit, Mem oria regular 3-30 [place] 0.08 mL, l 14:22: Dawson Route: [place] 00 Pu SUB-Q, Drug form: SOLN, ONCE, Priority: STAT, Start date: 09/18/11 9:22:00, Stop date: 09/18/11 9:22:00 Insulin 2012-0 No Hughes-Jason 8 unit, Mem oria regular 3-30 [place] 0.08 mL, l 14:22: Dawson Route: [place] 00 Pu SUB-Q, Drug form: SOLN, ONCE, Priority: STAT, Start date: 09/18/11 9:22:00, Stop date: 09/18/11 9:22:00 Insulin 2012-0 No Hughes-Jason 8 unit, Mem oria regular 3-30 [place] 0.08 mL, l 14:22: [place] Route: Vin 00 Pu SUB-Q, Drug form: SOLN, ONCE, Priority: STAT, Start date: 09/18/11 9:22:00, Stop date: 09/18/11 9:22:00 Insulin 2012-0 No Hughes-Jason 8 unit, Mem oria regular 3-30 [place] 0.08 mL, l 14:22: [place] Route: Vin 00 Pu SUB-Q, Drug form: SOLN, ONCE, Priority: STAT, Start date: 09/18/11 9:22:00, Stop date: 09/18/11 9:22:00 Lactated 2011-0 No Hughes-Jason 1,000 mL, Memoria Ringers 3-30 [place] Rate: l (Bolus) IV 14:16: [place] 1,000 He rmann 1,000 mL 00 Pu ml/hr, Infuse over: 1 hr, Route: IV, Total Volume: 1,000, [place]us Dose, Priority: STAT, Start date: 09/18/11 9:16:00, Duration: 1 doses or times, Stop date: 09/18/11 10:15:00 Lactated 2012-0 No Hughes-Jason 1,000 mL, Memoria Ringers 3-30 [place] Rate: l (Bolus) IV 14:16: [place] 1,000 He rmann 1,000 mL 00 Pu ml/hr, Infuse over: 1 hr, Route: IV, Total Volume: 1,000, [place] Dose, Priority: STAT, Start date: 09/18/11 9:16:00, Duration: 1 doses or times, Stop date: 09/18/11 10:15:00 Lactated 2012-0 No Hughes-Jason 1,000 mL, Memoria Ringers 3-30 [place] Rate: l (Bolus) IV 14:16: [place] 1,000 He rmann 1,000 mL 00 Pu ml/hr, Infuse over: 1 hr, Route: IV, Total Volume: 1,000, [place] Dose, Priority: STAT, Start date: 09/18/11 9:16:00, Duration: 1 doses or times, Stop date: 09/18/11 10:15:00 Lactated 2012-0 No Hughes-Jason 1,000 mL, Memoria Ringers 3-30 [place] Rate: l (Bolus) IV 14:16: [place] 1,000 He rmann 1,000 mL 00 Pu ml/hr, Infuse over: 1 hr, Route: IV, Total Volume: 1,000, [place]us Dose, Priority: STAT, Start date: 09/18/11 9:16:00, Duration: 1 doses or times, Stop date: 09/18/11 10:15:00 Lactated 2012-0 No Hughes-Jason 1,000 mL, Memoria Ringers 3-30 [place] Rate: l (Bolus) IV 14:16: [place] 1,000 He rmann 1,000 mL 00 Pu ml/hr, Infuse over: 1 hr, Route: IV, Total Volume: 1,000, Bolus Dose, Priority: STAT, Start date: 09/18/11 9:16:00, Duration: 1 doses or times, Stop date: 09/18/11 10:15:00 Sodium 2012-0 No Hughes-Jason 1,000 mL, Me moria Chloride 3-30 [place] Rate: l 0.9% 14:06: [place] 1,000 Vin (Bolus) IV 00 Pu ml/hr, 1000 mL Infuse over: 1 hr, Route: IV, kg, Total Volume: 1,000, Bolus Dose, Priority: STAT, Start date: 09/18/11 9:06:00, Duration: 1 doses or times, Stop date: 09/18/11 10:05:00 Sodium 2012-0 No Hughes-Jason 1,000 mL, Me moria Chloride 3-30 [place] Rate: l 0.9% 14:06: [place] 1,000 Vin (Bolus) IV 00 Pu ml/hr, 1000 mL Infuse over: 1 hr, Route: IV, kg, Total Volume: 1,000, Bolus Dose, Priority: STAT, Start date: 09/18/11 9:06:00, Duration: 1 doses or times, Stop date: 09/18/11 10:05:00 Sodium 2012-0 No Hughes-Jason 1,000 mL, Me moria Chloride 3-30 [place] Rate: l 0.9% 14:06: [place] 1,000 Vin (Bolus) IV 00 Pu ml/hr, 1000 mL Infuse over: 1 hr, Route: IV, kg, Total Volume: 1,000, Bolus Dose, Priority: STAT, Start date: 09/18/11 9:06:00, Duration: 1 doses or times, Stop date: 09/18/11 10:05:00 Sodium 2012-0 No Hughes-Jason 1,000 mL, Me moria Chloride 3-30 [place] Rate: l 0.9% 14:06: [place] 1,000 [place] (Bolus) IV 00 Pu ml/hr, 1000 mL Infuse over: 1 hr, Route: IV, kg, Total Volume: 1,000, Bolus Dose, Priority: STAT, Start date: 09/18/11 9:06:00, Duration: 1 doses or times, Stop date: 09/18/11 10:05:00 Sodium 2012-0 No Hughes-Jason 1,000 mL, Me moria Chloride 3-30 [place] Rate: l 0.9% 14:06: [place] 1,000 Vin (Bolus) IV 00 Pu ml/hr, 1000 mL Infuse over: 1 hr, Route: IV, kg, Total Volume: 1,000, Bolus Dose, Priority: STAT, Start date: 09/18/11 9:06:00, Duration: 1 doses or times, Stop date: 09/18/11 10:05:00 sulfamethox 2012-0 Yes Substituti Memoria azole 3-30 on Allowed l 14:04: [place] 58 sulfamethox 2012-0 Yes Substituti Memoria azole 3-30 on Allowed l 14:04: [place] 58 sulfamethox 2012-0 Yes Substituti Memoria azole 3-30 on Allowed l 14:04: Vin 58 sulfamethox 2012-0 Yes Substituti Memoria azole 3-30 on Allowed l 14:04: Vin 58 sulfamethox 2012-0 Yes Substituti Memoria azole 3-30 on Allowed l 14:04: Vin 58 Sodium 2012-0 No Hughes-Jason 1,000 mL, Me moria Chloride 3-30 [place] Rate: l 0.9% 13:56: [place] 1,000 Vin (Bolus) IV 00 Pu ml/hr, 1000 mL Infuse over: 1 hr, Route: IV, kg, Total Volume: 1,000, Bolus Dose, Priority: STAT, Start date: 09/18/11 8:56:00, Duration: 1 doses or times, Stop date: 09/18/11 9:55:00 Sodium 2012-0 No Hughes-Jason 1,000 mL, Me moria Chloride 3-30 [place] Rate: l 0.9% 13:56: [place] 1,000 [place] (Bolus) IV 00 Pu ml/hr, 1000 mL Infuse over: 1 hr, Route: IV, kg, Total Volume: 1,000, Bolus Dose, Priority: STAT, Start date: 09/18/11 8:56:00, Duration: 1 doses or times, Stop date: 09/18/11 9:55:00 Sodium 2012-0 No Hughes-Jason 1,000 mL, Me moria Chloride 3-30 [place] Rate: l 0.9% 13:56: [place] 1,000 Vin (Bolus) IV 00 Pu ml/hr, 1000 mL Infuse over: 1 hr, Route: IV, kg, Total Volume: 1,000, Bolus Dose, Priority: STAT, Start date: 09/18/11 8:56:00, Duration: 1 doses or times, Stop date: 09/18/11 9:55:00 Sodium 2012-0 No Hughes-Jason 1,000 mL, Me moria Chloride 3-30 [place] Rate: l 0.9% 13:56: [place] 1,000 [place] (Bolus) IV 00 Pu ml/hr, 1000 mL Infuse over: 1 hr, Route: IV, kg, Total Volume: 1,000, Bolus Dose, Priority: STAT, Start date: 09/18/11 8:56:00, Duration: 1 doses or times, Stop date: 09/18/11 9:55:00 Sodium 2012-0 No Hughes-Jason 1,000 mL, Me moria Chloride 3-30 [place] Rate: l 0.9% 13:56: [place] 1,000 Vin [...] Eber L 300 mg, 2 Memoria 3-21 Anablele cap, l 21:00: Route: PO, [place] 00 Drug form: CAP, Q8H, Start date: 09/09/11 16:00:00, Duration: 30 day, Stop date: 10/09/11 8:00:00 clindamycin 2012-0 No Eber L 300 mg, 2 Memoria 3-21 Anabelle cap, l 21:00: Route: PO, [place] 00 Drug form: CAP, Q8H, Start date: 09/09/11 16:00:00, Duration: 30 day, Stop date: 10/09/11 8:00:00 clindamycin 2011-0 No Eber L 300 mg, 2 Memoria 3-21 Anabelel cap, l 21:00: Route: PO, [place] 00 Drug form: CAP, Q8H, Start date: 09/09/11 16:00:00, Duration: 30 day, Stop date: 10/09/11 8:00:00 clindamycin 2011-0 No Eber L 300 mg, 2 Memoria 3-21 Anabelle cap, l 21:00: Route: PO, [place] 00 Drug form: CAP, Q8H, Start date: 09/09/11 16:00:00, Duration: 30 day, Stop date: 10/09/11 8:00:00 Colace 100 2011-0 Yes Luna 100 mg, 1 Memoria mg oral 3-21 Amelia cap, PO, l capsule 18:47: [place] BID, 60 Her braden 19 cap, Substituti on Allowed, CAP Colace 100 0 Yes Luna 100 mg, 1 Memoria mg oral 3-21 Amelia cap, PO, l capsule 18:47: Zeeshan BID, 60 Her braden 19 cap, Substituti on Allowed, CAP Colace 100 2011-0 Yes Luna 100 mg, 1 Memoria mg oral 3-21 Amelia cap, PO, l capsule 18:47: [place] BID, 60 Her braden 19 cap, Substituti [...] 3-21 Amelia cap, PO, l capsule 18:46: [place] Q8H, 30 Her braden 55 cap, Substituti on Allowed, CAP clindamycin 0 [...] 55 cap, Substituti on Allowed, CAP clindamycin 0 Yes Luna 300 mg, 2 Memoria 150 mg oral 3-21 Amelia cap, PO, l capsule 18:46: [place] Q8H, 30 Her braden 55 cap, Substituti on Allowed, CAP clindamycin 2011-0 Yes Luna 300 mg, 2 Memoria 150 mg oral 3-21 Amelia cap, PO, l capsule 18:46: [place] Q8H, 30 Her braden 55 cap, Substituti on Allowed, CAP [place] Yes Luna 1 tab, PO, Memoria 10/325 oral 3-21 Amelia Q4H, PRN, l tablet 18:46: Zeeshan 30 tab, Herm naeem 36 Pain, Substituti on Allowed, Maintenanc e, TAB [place] 0 Yes Luna 1 tab, PO, Memoria 10/325 oral 3-21 Amelia Q4H, PRN, l tablet 18:46: Zeeshan 30 tab, Herm naeem 36 Pain, Substituti on Allowed, Maintenanc e, TAB [place] Yes Luna 1 tab, PO, Memoria 10/325 oral 3-21 Amelia Q4H, PRN, l tablet 18:46: Zeeshan 30 tab, Herm naeem 36 Pain, Substituti on Allowed, Maintenanc e, TAB [place] Yes Luna 1 tab, PO, Memoria 10/325 oral 3-21 Amelia Q4H, PRN, l tablet 18:46: [place] 30 tab, Herm naeem 36 Pain, Substituti on Allowed, Maintenanc e, TAB [place] Yes Luna 1 tab, PO, Memoria 10/325 oral 3-21 Amelia Q4H, PRN, l tablet 18:46: Zeeshan 30 tab, Herm naeem 36 Pain, Substituti on Allowed, Maintenanc e, TAB [place] No Hollie Donavan 1 tab, Mendoza janice 10/325 oral 3-21 Mahi Route: PO, l tablet 09:00: Drug Form: Nidia nn 00 TAB, Q4H, Start date: 09/09/11 4:00:00, Duration: 30 day, Stop date: 10/09/11 0:00:00 [place] No Hollie Donavan 1 tab, Mendoza janice 10/325 oral 3-21 Mahi Route: PO, l tablet 09:00: Drug Form: Nidia nn 00 TAB, Q4H, Start date: 09/09/11 4:00:00, Duration: 30 day, Stop date: 10/09/11 0:00:00 [place] No Hollie Donavan 1 tab, Mendoza janice 10/325 oral 3-21 Mahi Route: PO, l tablet 09:00: Drug Form: Nidia nn 00 TAB, Q4H, Start date: 09/09/11 4:00:00, Duration: 30 day, Stop date: 10/09/11 0:00:00 [place] No Hollie Donavan 1 tab, Mendoza janice 10/325 oral 3-21 Mahi Route: PO, l tablet 09:00: Drug Form: Nidia nn 00 TAB, Q4H, Start date: 09/09/11 4:00:00, Duration: 30 day, Stop date: 10/09/11 0:00:00 [place] No Hollie Donavan 1 tab, Mendoza janice [...] 3-19 Omidvar tab, l 15:30: Route: PO, [place] 00 Drug form: TAB, Daily, Start date: [...] moria 3-19 Josefina 0.1 mL, l 14:19: [place] Route: Vin 00 IVP, Drug form: INJ, [...] ne 3-19 Josefina 0.25 mL, l 14:19: [place] Route: Vin 00 IVP, Drug form: INJ, [...] Memoria 3-19 Josefina mL, Route: l 14:19: [place] IVP, Drug Jake n 00 form: INJ, PRN, PRN Benzodiaze pine Reversal, Initial dose, Start date: 09/07/11 9:19:00, Duration: 1 day, Stop date: 09/08/11 9:18:00 naloxone 0 No Gayle 0.04 mg, Me moria 3-19 Josefina 0.1 mL, l 14:19: Gavin Route: [place] 00 IVP, Drug form: INJ, Q2MIN, PRN [...] Memoria 3-19 Josefina mL, Route: l 14:19: [place] IVP, Drug Jake n 00 form: INJ, PRN, PRN Benzodiaze pine Reversal, Initial dose, Start date: 09/07/11 9:19:00, Duration: 1 day, Stop date: 09/08/11 9:18:00 naloxone No Gayle 0.04 mg, Me moria 3-19 Josefina 0.1 mL, l 14:19: [place] Route: Vin 00 IVP, Drug form: INJ, Q2MIN, PRN Narcotic Reversal, Start date: 09/07/11 9:19:00, Duration: 8 doses or times, Stop date: Limited # of times ondansetron No Gayle 4 mg, 2 Memoria 3-19 Josefina mL, Route: l 14:19: [place] IVP, Drug Jake n 00 form: INJ, ONCE, PRN Nausea & Vomiting, Start date: 09/07/11 9:19:00 hydromorpho No Gayle 0.5 mg, Memoria ne 3-19 Josefina 0.25 mL, l 14:19: [place] Route: [place] 00 IVP, Drug form: INJ, Q5Min, PRN [...] Memoria 3-19 Josefina mL, Route: l 14:19: [place] IVP, Drug Jake n 00 form: INJ, PRN, PRN Benzodiaze pine Reversal, Initial dose, Start date: 09/07/11 9:19:00, Duration: 1 day, Stop date: 09/08/11 9:18:00 naloxone No Gayle 0.04 mg, Me moria 3-19 Josefina 0.1 mL, l 14:19: [place] Route: [place] 00 IVP, Drug form: INJ, Q2MIN, PRN [...] Josefina Route: PO, l one 325 14:19: [place] Drug Form: He rmann mg-10 mg/15 00 SOLN, Q4H, mL oral PRN Pain solution Score 4-6, Start date: 09/07/11 9:19:00, Duration: 1 day, Stop date: 09/08/11 8:00:00 flumazenil 2011- No Gayle 0.2 mg, 2 Memoria 3-19 Josefina mL, Route: l 14:19: [place] IVP, Drug Jake n 00 form: INJ, PRN, PRN Benzodiaze pine Reversal, Initial dose, Start date: 09/07/11 9:19:00, Duration: 1 day, Stop date: 09/08/11 9:18:00 naloxone No Gayle 0.04 mg, Me moria 3-19 Josefina 0.1 mL, l 14:19: [place] Route: Vin 00 IVP, Drug form: INJ, [...] No Gayle 15 mL, M emoria en-hydrocod - Josef[place] Route: PO, l one 325 14:19: [place] Drug Form: He rmann mg-10 mg/15 00 SOLN, Q4H, mL oral PRN Pain solution Score 4-6, Start date: 09/07/11 9:19:00, Duration: 1 day, Stop date: 09/08/11 8:00:00 Lactated 0 No [place] 1,000 mL, Me moria Ringers [...] [place] 1,000 mL, Me moria Ringers IV -19 Omidvar Rate: 125 l 1,000 mL 14:06: [...] Rate: 125 l 1,000 mL 14:06: ml/hr, [place] 00 Infuse over: 8 hr, Route: IV, Dosing Weight 68.182 kg, Total Volume: 1,000, Start date: 09/07/11 9:06:00, Duration: 30 day, Stop date: 10/07/11 9:05:00 clindamycin 2011-0 No Maximo R 600 mg, Memoria - [place] Route: l 13:31: IVPB, [place] 00 ONCE, Start date: 09/07/11 8:31:00, Stop date: 09/07/11 8:31:00 clindamycin 2011-0 No Maximo R 600 mg, Memoria 3-19 [place] Route: l 13:31: IVPB, [place] 00 ONCE, Start date: 09/07/11 8:31:00, Stop date: 09/07/11 8:31:00 clindamycin 2011-0 No Maximo R 600 mg, Memoria 3-19 [place] Route: l 13:31: IVPB, [place] 00 ONCE, Start date: 09/07/11 8:31:00, Stop date: 09/07/11 8:31:00 clindamycin 2011-0 No Maximo R 600 mg, Memoria 3-19 [place] Route: l 13:31: IVPB, [place] 00 ONCE, Start date: 09/07/11 8:31:00, Stop date: 09/07/11 8:31:00 clindamycin 2011-0 No Maximo R 600 mg, Memoria 3-19 Arias Route: l 13:31: IVPB, [place] 00 ONCE, Start date: 09/07/11 8:31:00, Stop date: 09/07/11 8:31:00 normal 0 No Yury W 1,000 mL, [...] 3-17 Omidvar tab, l 14:11: Route: PO, [place] 00 Drug form: ERTAB, ONCE, Start date: 09/05/11 9:11:00, Stop date: 09/05/11 9:11:00 Dulcolax 2012-0 No Charbel A 10 mg, 2 M emoria Laxative 3-17 Wong tab, l 04:00: Route: PO, [place] 00 Drug form: ECTAB, Daily, PRN Constipati on, Priority: NOW, Start date: 09/04/11 23:00:00, Duration: 30 day, Stop date: 10/04/11 22:59:00 Dulcolax 2012-0 No Charbel A 10 mg, 2 M emoria Laxative 3-17 Wong tab, l 04:00: Route: PO, [place] 00 Drug form: ECTAB, Daily, PRN Constipati [...] Duration: 30 day, Stop date: 10/04/11 18:10:00 [place] 2012-0 No Mahammad 1 tab, Memori a 10/325 oral 3-16 Simeon Route: PO, l tablet 17:00: Dez Drug Form: He rmann 00 TAB, Q4H, Start date: 09/04/11 12:00:00, Duration: 30 day, Stop date: 10/04/11 8:00:00 [place] 2012-0 No Mahammad 1 tab, Memori a 10/325 oral 3-16 Simeon Route: PO, l tablet 17:00: Dez Drug Form: Tyrel canales 00 TAB, Q4H, Start date: 09/04/11 12:00:00, Duration: 30 day, Stop date: 10/04/11 8:00:00 [place] 2011-0 No Mahammad 1 tab, Memori a 10/325 oral 3-16 Simeon Route: PO, l tablet 17:00: Dez Drug Form: Tyrel canales 00 TAB, Q4H, Start date: 09/04/11 12:00:00, Duration: 30 day, Stop date: 10/04/11 8:00:00 [place] 2011-0 No Mahammad 1 tab, Memori a 10/325 oral 3-16 Simeon Route: PO, l tablet 17:00: Dez Drug Form: Tyrel canales 00 TAB, Q4H, Start date: 09/04/11 12:00:00, Duration: 30 day, Stop date: 10/04/11 8:00:00 [place] 2011-0 No Mahammad 1 tab, Memori a 10/325 oral 3-16 Simeon Route: PO, l tablet 17:00: Dez Drug Form: Tyrel canales 00 TAB, Q4H, Start date: 09/04/11 12:00:00, [...] Kavon mL, Route: l 14:50: IVP, Drug [place] 00 form: INJ, ONCE, PRN Nausea & [...] 3-16 Kavon 0.1 mL, l 14:50: Route: [place] 00 IVP, Drug form: INJ, Q2MIN, PRN [...] 10cc/hr, l - site 1 14:50: Route: [place] 400 mL 00 NERVE BLOCK, Start date: [...] 3-16 Kavon 0.1 mL, l 14:50: Route: [place] 00 IVP, Drug form: INJ, Q2MIN, PRN [...] 10cc/hr, l - site 1 14:50: Route: [place] 400 mL 00 NERVE BLOCK, Start date: 09/04/11 9:50:00 400 mL, Duration: 30 day, Stop date: 10/04/11 9:49:00 naloxone No Rosalino 0.04 mg, Me moria 3-16 Kavon 0.1 mL, l 14:50: Route: [place] 00 IVP, Drug form: INJ, Q2MIN, PRN Narcotic Reversal, Start date: 09/04/11 9:50:00, Duration: 30 day, Stop date: 10/04/11 9:49:00 [place] No [place] 1 tab, Memoria 10/325 oral 3-16 Omidvar Route: PO, l tablet 14:49: Drug Form: Nidia nn 00 TAB, Q4H, PRN Pain, Start date: 09/04/11 9:49:00, Stop date: 10/04/11 9:48:00 [place] 0 No [place] 1 tab, Memoria 10/325 oral 3-16 Omidvar Route: PO, l tablet 14:49: Drug Form: Nidia nn 00 TAB, Q4H, PRN Pain, Start date: 09/04/11 9:49:00, Stop date: 10/04/11 9:48:00 [place] 0 No [place] 1 tab, Memoria 10/325 oral 3-16 Omid[place] Route: PO, l tablet 14:49: Drug Form: Nidia nn 00 TAB, Q4H, PRN Pain, Start date: 09/04/11 9:49:00, Stop date: 10/04/11 9:48:00 [place] 0 No [place] 1 tab, Memoria 10/325 oral 3-16 Omid[place] Route: PO, l tablet 14:49: Drug Form: Nidia nn 00 TAB, Q4H, PRN Pain, Start date: 09/04/11 9:49:00, Stop date: 10/04/11 9:48:00 [place] 2012-0 No [place] 1 tab, Memoria 10/325 oral [...] Beck 0.5 mL, l 13:37: [place] Route: [place] IVP, Drug form: INJ, Q30Min, PRN Other [...] No Rosalino 0.5 mg, Memoria ne 3-16 Kaovn 0.25 mL, l 13:37: Route: Vin IVP, [...] Beck 0.5 mL, l 13:37: [place] Route: [place] IVP, Drug form: INJ, Q30Min, PRN Other [...] Beck 0.1 mL, l 13:37: [place] Route: [place] IVP, Drug form: INJ, Q2MIN, PRN Narcotic [...] Beck 0.5 mL, l 13:37: [place] Route: [place] 00 IVP, Drug form: INJ, Q30Min, PRN [...] Beck 0.5 mL, l 13:37: [place] Route: [place] 00 IVP, Drug form: INJ, Q30Min, PRN [...] 3-16 Kavon 0.25 mL, l 13:37: Route: [place] 00 IVP, Drug form: INJ, Q5Min, PRN Pain Score 4-6, Start date: 09/04/11 8:37:00, Duration: 5 doses or times, Stop date: Limited # of times clindamycin 2011-0 No Eber L 600 mg, 4 Memoria 3-15 Anabelle mL, Route: l 16:00: IVPB, [place] [id number], Start date: 09/03/11 11:00:00, Duration: 30 day, Stop date: 10/03/11 8:00:00 clindamycin 2011-0 No Eber L 600 mg, 4 Memoria 3-15 Anabelle mL, Route: l 16:00: IVPB, [place] [id number], Start date: 09/03/11 11:00:00, Duration: 30 [...] 3-15 Anabelle mL, Route: l 16:00: IVPB, [place] [id number], Start date: 09/03/11 11:00:00, Duration: 30 [...] 3-15 Omidvar tab, l 13:39: Route: PO, [place] 00 Drug form: ERTAB, ONCE, Start date: [...] date: 09/03/11 8:39:00, Stop date: 09/03/11 8:39:00 [place] 5/325 2011-0 No Rosalino 1 tab, M emoria oral tablet 09-02 Kavon Route: PO, l 05:00: Drug Form: Vin 00 TAB, Q4H, Start date: 09/03/11 0:00:00, Duration: 30 day, Stop date: 10/02/11 20:00:00 [place] 5/325 2011-0 No Rosalino 1 tab, M emoria oral tablet 09-02 [facility] Route: PO, l 05:00: Drug Form: Vin 00 TAB, Q4H, Start date: 09/03/11 0:00:00, Duration: 30 day, Stop date: 10/02/11 20:00:00 [place] 5/325 2011-0 No Rosalino 1 tab, M emoria oral tablet 09-02 Kavon Route: PO, l 05:00: Drug Form: [place] 00 TAB, Q4H, Start date: 09/03/11 0:00:00, Duration: 30 day, Stop date: 10/02/11 20:00:00 [place] 5/325 2012-0 No Rosalino 1 tab, M emoria oral tablet 3-15 Kavon Route: PO, l 05:00: Drug Form: [place] 00 TAB, Q4H, Start date: 09/03/11 0:00:00, Duration: 30 day, Stop date: 10/02/11 20:00:00 [place] 325 2012-0 No Rosalino 1 tab, M emoria oral tablet 3-15 Kavon Route: PO, l 05:00: Drug Form: [place] 00 TAB, Q4H, Start date: 09/03/11 0:00:00, [...] 3-15 Anabelle cap, l 02:00: Route: PO, [place] 00 Drug form: CAP, Bedtime, Start date: [...] 3-15 Anabelle cap, l 02:00: Route: PO, [place] Drug form: CAP, Bedtime, Start date: 09/02/11 [...] 3-14 Anabelle cap, l 17:00: Route: PO, [place] 00 Drug form: ERCAP, Daily, Give qAM after today's dose., Start date: 09/02/11 12:00:00, Duration: 30 day, Stop date: 10/02/11 9:00:00 Effexor XR 2012-0 No Eber L 75 mg, 1 Memoria 3-14 Anabelle cap, l 17:00: Route: PO, [place] 00 Drug form: ERCAP, Daily, Give qAM [...] Duration: 30 day, Stop date: 10/02/11 9:00:00 [place] 5/325 2011-0 No Rosalino 1 tab, M emoria oral tablet 09-01 Kavon Route: PO, l 16:25: Drug Form: Vin 00 TAB, Q4H, PRN Pain, Start date: 09/02/11 11:25:00, Duration: 30 day, Stop date: 10/02/11 11:24:00 [place] 5/325 2011-0 No Rosalino 1 tab, M emoria oral tablet 09-01 [place] Route: PO, l 16:25: Drug Form: Vin 00 TAB, Q4H, PRN Pain, Start date: 09/02/11 11:25:00, Duration: 30 day, Stop date: 10/02/11 11:24:00 [place] 5/325 2011-0 No Rosalino 1 tab, M emoria oral tablet 09-01 [facility] Route: PO, l 16:25: Drug Form: [place] 00 TAB, Q4H, PRN Pain, Start date: 09/02/11 11:25:00, Duration: 30 day, Stop date: 10/02/11 11:24:00 [place] 5/325 2011-0 No Rosalino 1 tab, M emoria oral tablet 09-01 [facility] Route: PO, l 16:25: Drug Form: Vin 00 TAB, Q4H, PRN Pain, Start date: 09/02/11 11:25:00, Duration: 30 day, Stop date: 10/02/11 11:24:00 [place] 5/325 2011-0 No Rosalino 1 tab, M emoria oral tablet 09-01 [facility] Route: PO, l 16:25: Drug Form: [place] 00 TAB, Q4H, PRN Pain, Start date: [...] mL, Route: l 16:15: IVPB, Drug Vin form: INJ, ONCE, Start date: 09/02/11 11:15:00, Stop date: 09/02/11 11:15:00 magnesium 2011-0 No [place] 4 gm, 50 Me moria sulfate 3-14 Omidvar mL, Route: l 16:15: IVPB, Drug [place] form: INJ, ONCE, Start date: 09/02/11 11:15:00, Stop date: 09/02/11 11:15:00 Lovenox 2011-0 No Missael 40 mg, 0.4 Mem oria 3-14 Movva mL, Route: l 14:00: SUB-Q, [place] Drug form: INJ, Daily, Start date: 09/02/11 9:00:00, Duration: 30 day, Stop date: 10/01/11 9:00:00 vancomycin 2011-0 No Eber L 1 gm, Memoria 3-14 Anabelle Route: l 14:00: IVPB, Drug Vin 00 form: INJ, [id number], Start date: 09/02/11 9:00:00, Duration: 30 day, Stop date: 10/01/11 21:00:00 Lovenox 2011-0 No Missael 40 mg, 0.4 Mem oria 3-14 Movva mL, Route: l 14:00: SUB-Q, Vin Drug form: INJ, Daily, Start date: 09/02/11 9:00:00, Duration: 30 day, Stop date: 10/01/11 9:00:00 vancomycin 2012-0 No Eber L 1 gm, Memoria 3-14 [place]abelle Route: l 14:00: IVPB, Drug [place] 00 form: INJ, [id number], Start date: 09/02/11 9:00:00, Duration: 30 day, Stop date: 10/01/11 21:00:00 Lovenox 2012-0 No Missael 40 mg, 0.4 Mem oria 3-14 Movva mL, Route: l 14:00: SUB-Q, [place] Drug form: INJ, Daily, Start date: 09/02/11 9:00:00, Duration: 30 day, Stop date: 10/01/11 9:00:00 vancomycin 2011-0 No Eber L 1 gm, Memoria 3-14 [place] Route: l 14:00: IVPB, Drug form: INJ, [id number], Start date: 09/02/11 9:00:00, Duration: 30 day, Stop date: 10/01/11 21:00:00 Lovenox 2011-0 No Missael 40 mg, 0.4 Mem oria 3-14 Movva mL, Route: l 14:00: SUB-Q, Drug form: INJ, Daily, Start date: 09/02/11 9:00:00, Duration: 30 day, Stop date: 10/01/11 9:00:00 vancomycin 2011-0 No Eber L 1 gm, Memoria 3-14 [place] Route: l 14:00: IVPB, Drug form: INJ, [id number], Start date: 09/02/11 9:00:00, Duration: 30 day, Stop date: 10/01/11 21:00:00 Lovenox 2011-0 No Missael 40 mg, 0.4 Mem oria 3-14 Movva mL, Route: l 14:00: SUB-Q, Drug form: INJ, Daily, Start date: 09/02/11 9:00:00, Duration: 30 day, Stop date: 10/01/11 9:00:00 vancomycin 2011-0 No Eber L 1 gm, Memoria 3-14 [place] Route: l 14:00: IVPB, Drug form: INJ, [id number], Start date: 09/02/11 9:00:00, Duration: 30 day, Stop date: 10/01/11 21:00:00 clindamycin 2011-0 No Eber L 600 mg, 4 Memoria (SCIP) 3-14 Anabelle mL, Route: l 10:00: IVPB, Vin 00 [id number], Start date: 09/02/11 5:00:00, Duration: 3 doses or times, Stop date: 09/02/11 21:00:00 clindamycin 2012-0 No Eber L 600 mg, 4 Memoria (SCIP) 3-14 Anabelle mL, Route: l 10:00: IVPB, [place] 00 [id number], Start date: 09/02/11 5:00:00, Duration: 3 doses or times, Stop date: 09/02/11 21:00:00 clindamycin 2012-0 No Eber L 600 mg, 4 Memoria (SCIP) 3-14 Anabelle mL, Route: l 10:00: IVPB, [place] 00 [id number], Start date: 09/02/11 5:00:00, Duration: [...] Brandon mL, Route: l 04:00: Connally IVPB, [place] 00 [id number], Start date: 09/01/11 23:00:00, Duration: 3 doses or times, Stop date: 09/02/11 15:00:00 clindamycin 2012-0 No Yury 600 mg, 4 Memoria (SCIP) 3-14 Brandon mL, Route: l 04:00: Connally IVPB, [place] 00 [id number], Start date: 09/01/11 23:00:00, Duration: [...] Brandon mL, Route: l 04:00: Connally IVPB, [place] 00 [id number], Start date: 09/01/11 23:00:00, Duration: 3 doses or times, Stop date: 09/02/11 15:00:00 insulin 2011-0 No [place] 15 unit, Mendoza janice 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 3-14 O[place] 0.15 mL, l H 02:00: Route: Vin 00 SUB-Q, Drug form: INJ, Q12H, Start date: 09/01/11 21:00:00, Stop date: 10/01/11 9:00:00 insulin 2011-0 No [place]ism[place] 15 unit, Mendoza janice 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 3-14 Omidvar 0.15 mL, l H 02:00: Route: Vin 00 SUB-Q, Drug form: INJ, Q12H, Start date: 09/01/11 21:00:00, Stop date: 10/01/11 9:00:00 insulin 2011-0 No [place] 15 unit, Mendoza janice 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 3-14 O[place] 0.15 mL, l H 02:00: Route: Vin 00 SUB-Q, Drug form: INJ, Q12H, Start date: 09/01/11 21:00:00, Stop date: 10/01/11 9:00:00 insulin 2011-0 No [place] 15 unit, Mendoza janice 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 3-14 O[place] 0.15 mL, l H 02:00: Route: Vin 00 SUB-Q, Drug form: INJ, Q12H, Start date: 09/01/11 21:00:00, Stop date: 10/01/11 9:00:00 insulin 2011- No [place] 15 unit, Mendoza janice 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 3-14 O[place] 0.15 mL, l H 02:00: Route: [place] 00 SUB-Q, Drug form: INJ, Q12H, Start date: 09/01/11 21:00:00, Stop date: 10/01/11 9:00:00 labetalol No Mariaelena-Corea 5 mg, Me moria 3-14 Barbra Route: l 01:07: Feliciano IVP, [place] 00 Q5Min, PRN Elevated BP, Start date: 09/01/11 20:07:00, Duration: 5 doses or times, Stop date: Limited # of times hydrALAZINE No Mariaelena-Corea 5 mg, Memoria 3-14 [place]bra Route: l 01:07: Feliciano IVP, [place] 00 Q5Min, PRN Elevated BP, Start date: [...] 3-14 [place]bra Route: l 01:07: Feliciano IVP, [place] 00 Q2MIN, PRN Narcotic Reversal, Start date: [...] Barbra Route: l 01:07: Feliciano IVP, ONCE, [place] 00 PRN Nausea & Vomiting, Start date: 09/01/11 20:07:00 labetalol No Mariaelena-Corea 5 mg, Me moria 3-14 [place] Route: l 01:07: Feliciano IVP, [place] 00 Q5Min, PRN Elevated BP, Start date: [...] 3-14 Barbra Route: l 01:07: Feliciano IVP, [place] 00 Q5Min, PRN Pain Score 4-6, Start date: 09/01/11 20:07:00, Duration: 5 doses or times, Stop date: Limited # of times naloxone No Mariaeelna-Corea 0.04 mg, Memoria 3-14 [place]bra Route: l 01:07: Feliciano IVP, [place] 00 Q2MIN, PRN Narcotic Reversal, Start date: [...] Barbra Route: l 01:07: Feliciano IVP, ONCE, [place] 00 PRN Nausea & Vomiting, Start date: 09/01/11 20:07:00 labetalol No Mariaelena-Corea 5 mg, Me moria 3-14 [place] Route: l 01:07: Feliciano IVP, [place] 00 Q5Min, PRN Elevated BP, Start date: [...] 3-14 [place] Route: l 01:07: Feliciano IVP, Vni 00 Q2MIN, PRN Narcotic Reversal, Start date: [...] 3-14 [place] Route: l 01:07: Feliciano IVP, [place] 00 Q5Min, PRN Elevated BP, Start date: 09/01/11 20:07:00, Duration: 5 doses or times, Stop date: Limited # of times hydrALAZINE No Mariaelena-Corea 5 mg, Memoria 3-14 Babrra Route: l 01:07: Feliciano IVP, [place] 00 Q5Min, PRN Elevated BP, Start date: [...] 3-14 [place]bra Route: l 01:07: Feliciano IVP, [place] 00 Q2MIN, PRN Narcotic Reversal, Start date: 09/01/11 20:07:00, Duration: 8 doses or times, Stop date: Limited # of times flumazenil No Mariaelena-Corea 0.2 mg, Memoria 3-14 [place] Route: l 01:07: Feliciano IVP, PRN, [place] 00 PRN Benzodiaze pine Reversal, Initial dose, Start date: 09/01/11 20:07:00, Duration: 30 day, Stop date: 10/01/11 20:06:00 ondansetron No Mariaelena-Corea 4 mg, Memoria 3-14 [place] Route: l 01:07: Feliciano IVP, ONCE, [place] 00 PRN Nausea & Vomiting, Start date: 09/01/11 20:07:00 labetalol No Mariaelena-Corea 5 mg, Me moria 3-14 [place] Route: l 01:07: Feliciano IVP, [place] 00 Q5Min, PRN Elevated BP, Start date: 09/01/11 20:07:00, Duration: 5 doses or times, Stop date: Limited # of times hydrALAZINE 2012-0 No Mariaelena-Corea 5 mg, Memoria 3-14 Barbra [...] 3-14 Barbra Route: l 01:07: Feliciano IVP, [place] 00 Q2MIN, PRN Narcotic Reversal, Start date: [...] 01:00: IVPB, Drug Vin 00 form: INJ, [id number], Start date: 09/01/11 20:00:00, Duration: 30 day, Stop date: 10/01/11 8:00:00 vancomycin 2011-0 No Mele 1 gm, Mem oria 3-14 Gauvain Route: l 01:00: IVPB, Drug Vin 00 form: INJ, [id number], Start date: 09/01/11 20:00:00, Duration: 30 day, Stop date: 10/01/11 8:00:00 vancomycin 2011-0 No Mele 1 gm, Mem oria 3-14 [place] Route: l 01:00: IVPB, Drug Vin 00 form: INJ, [id number], Start date: 09/01/11 20:00:00, Duration: 30 day, Stop date: 10/01/11 8:00:00 vancomycin 2011-0 No Mele 1 gm, Mem oria 3-14 [place]vain Route: l 01:00: IVPB, Drug [place] 00 form: INJ, [id number], Start date: 09/01/11 20:00:00, Duration: 30 day, Stop date: 10/01/11 8:00:00 vancomycin 2011-0 No Mele 1 gm, Mem oria 3-14 Gauvain Route: l 01:00: IVPB, Drug Vin 00 form: INJ, [id number], Start date: 09/01/11 20:00:00, Duration: 30 day, [...] Rate: 125 l 1,000 mL 00:55: ml/hr, [place] 00 Infuse over: 8 hr, Route: IV, Dosing Weight 68.2 kg, Total Volume: 1,000, Start date: 09/01/11 19:55:00, Duration: 30 day, Stop date: 10/01/11 19:54:00 Lactated 2011-0 No Charbel A 1,000 mL, Memoria Ringers IV 3-14 Wong Rate: 125 l 1,000 mL 00:55: ml/hr, [place] 00 Infuse over: 8 hr, Route: IV, [...] 00:00: IVPB, Drug Vin 00 form: INJ, [id number], Start date: 09/01/11 19:00:00, Duration: 30 day, Stop date: 10/01/11 7:00:00 vancomycin 2011-0 No Missael 1 gm, Memor ia 3-14 Movva Route: l 00:00: IVPB, Drug Vin 00 form: INJ, [id number], Start date: 09/01/11 19:00:00, Duration: 30 day, Stop date: 10/01/11 7:00:00 vancomycin 2011-0 No Missael 1 gm, Memor ia 3-14 Movva Route: l 00:00: IVPB, Drug [place] 00 form: INJ, [id number], Start date: 09/01/11 19:00:00, Duration: 30 day, Stop date: 10/01/11 7:00:00 vancomycin 2011-0 No Missael 1 gm, Memor ia 3-14 Movva Route: l 00:00: IVPB, Drug Vin 00 form: INJ, [id number], Start date: 09/01/11 19:00:00, Duration: 30 day, Stop date: 10/01/11 7:00:00 vancomycin 2012-0 No Missael 1 gm, Memor ia 3-14 Movva Route: l 00:00: IVPB, Drug [place] 00 form: INJ, [id number], Start date: 09/01/11 19:00:00, Duration: 30 day, Stop date: 10/01/11 7:00:00 insulin 2011-0 No Missael 6 unit, Memori a aspart 3-13 Movva 0.06 mL, l 23:23: Route: [place] 00 SUB-Q, Drug form: SOLN, TID-Before Meals, PRN Blood Glucose Results, Start date: 09/01/11 18:23:00, Duration: 30 day, Stop date: 10/01/11 18:22:00 glucagon 2011-0 No Missael 1 mg, Memoria 3-13 Movva Route: IM, l 23:23: Drug form: [place] 00 PDR/INJ, PRN, PRN Blood Glucose Results, [...] Movva mL, Route: l 23:23: IVP, Drug [place] 00 Form: INJ, PRN, PRN Blood Glucose Results, Start date: 09/01/11 18:23:00, Duration: 30 day, Stop date: 10/01/11 18:22:00 insulin 2011-0 No Missael 6 unit, Memori a aspart 3-13 Movva 0.06 mL, l 23:23: Route: [place] 00 SUB-Q, Drug form: SOLN, TID-Before Meals, [...] Movva mL, Route: l 23:23: IVP, Drug [place] 00 Form: INJ, PRN, PRN Blood Glucose Results, Start date: 09/01/11 18:23:00, Duration: 30 day, Stop date: 10/01/11 18:22:00 insulin 2012-0 No Missael 6 unit, Memori a aspart 3-13 Movva 0.06 mL, l 23:23: Route: [place] 00 SUB-Q, Drug form: SOLN, TID-Before Meals, PRN Blood Glucose Results, Start date: 09/01/11 18:23:00, Duration: 30 day, Stop date: 10/01/11 18:22:00 glucagon 2012-0 No Missael 1 mg, Memoria 3-13 Movva Route: IM, l 23:23: Drug form: [place] 00 PDR/INJ, PRN, PRN Blood Glucose Results, [...] Movva mL, Route: l 23:23: IVP, Drug [place] 00 Form: INJ, PRN, PRN Blood Glucose Results, Start date: 09/01/11 18:23:00, Duration: 30 day, Stop date: 10/01/11 18:22:00 morphine 2011-0 No Daja Shannan 2 mg, 1 M emoria Sulfate 3-13 Beni mL, Route: l 21:14: IVP, Drug [place] 00 form: INJ, Q4H, PRN Severe Pain, [...] Beni mL, Route: l 21:14: IVP, Drug [place] 00 form: INJ, Q4H, PRN Severe Pain, Start date: 09/01/11 16:14:00, Stop date: 10/01/11 16:13:00 Lactated 2012-0 No Cesar 1,000 mL, Me moria Ringers IV 3-13 Manuel [place] Rate: 100 l 1,000 mL 19:03: ml/hr, Vin 00 Infuse over: 10 hr, Route: IV, Dosing Weight 68.182 kg, Total Volume: 1,000, Start date: 09/01/11 14:03:00, Duration: 30 day, Stop date: 10/01/11 14:02:00 Lactated 2012-0 No Cesar 1,000 mL, Me moria Ringers IV 3-13 Manuel [place] Rate: 100 l 1,000 mL 19:03: ml/hr, [place] 00 Infuse over: 10 hr, Route: IV, Dosing Weight 68.182 kg, Total Volume: 1,000, Start date: 09/01/11 14:03:00, Duration: 30 day, Stop date: 10/01/11 14:02:00 Lactated 2012-0 No Cesar 1,000 mL, Me moria Ringers IV 3-13 Manuel [place] Rate: 100 l 1,000 mL 19:03: ml/hr, [place] 00 Infuse over: 10 hr, Route: IV, Dosing Weight 68.182 kg, Total Volume: 1,000, Start date: 09/01/11 14:03:00, Duration: 30 day, Stop date: 10/01/11 14:02:00 Lactated 2012-0 No Cesar 1,000 mL, Me moria Ringers IV 3-13 Manuel [place] Rate: 100 l 1,000 mL 19:03: ml/hr, [place] 00 Infuse over: 10 hr, Route: IV, Dosing Weight 68.182 kg, Total Volume: 1,000, Start date: 09/01/11 14:03:00, Duration: 30 day, Stop date: 10/01/11 14:02:00 Lactated 2012-0 No Cesar 1,000 mL, Me moria Ringers IV 3-13 Manuel [place] Rate: 100 l 1,000 mL 19:03: ml/hr, [place] 00 Infuse over: 10 hr, Route: IV, [...] Madden Rate: l 0.9% 14:53: Gurinder 1,000 [place] (Bolus) IV 00 ml/hr, 1,000 mL Infuse [...] Madden Rate: l 0.9% 14:53: Gurinder 1,000 [place] (Bolus) IV 00 ml/hr, 1,000 mL Infuse [...] 09/01/11 8:20:00, Stop date: 09/01/11 8:20:00 clindamycin 2011-0 No Ju 600 mg, 4 Memoria 3-13 Nikki mL, Route: l 13:20: Sandeep IVPB, Drug Herm naeem 00 form: INJ, ONCE, Priority: STAT, Start date: 09/01/11 8:20:00, Stop date: 09/01/11 8:20:00 Sodium 2011-0 No Bee L 1,000 mL, M emoria Chloride 08-31 [place] Rate: l 0.9% 10:41: 1,000 [place] (Bolus) IV 00 ml/hr, 1000 mL Infuse [...] L 1,000 mL, M emoria Chloride 3-13 [place] Rate: l 0.9% 10:41: 1,000 Vin (Bolus) [...] L 1,000 mL, M emoria Chloride 3-13 [place] Rate: l 0.9% 10:41: 1,000 Vin (Bolus) IV 00 ml/hr, 1000 mL Infuse over: 1 hr, Route: IV, Dosing Weight 68.182 kg, Total Volume: 1,000, Bolus Dose, Priority: STAT, Start date: 09/01/11 5:41:00, Duration: 1 doses or times, Stop date: 09/01/11 6:40:00 ondansetron 2011-0 No Bee L 4 mg, Memoria 3- [place] Route: l 09:06: IVP, Drug [place] 00 form: INJ, ONCE, Priority: STAT, Start date: 09/01/11 4:06:00, Stop date: 09/01/11 4:06:00 morphine 2011-0 No Bee L 4 mg, Mem oria Sulfate 3- [place] Route: l 09:06: IVP, ONCE, [place] 00 Priority: STAT, Start date: 09/01/11 4:06:00, Stop date: 09/01/11 4:06:00 ondansetron 2012-0 No Bee L 4 mg, Memoria 3-13 [place] Route: l 09:06: IVP, Drug Vin 00 form: INJ, ONCE, Priority: STAT, Start date: 09/01/11 4:06:00, Stop date: 09/01/11 4:06:00 morphine 2011-0 No Bee L 4 mg, Mem oria Sulfate - [place] Route: l 09:06: IVP, ONCE, [place] 00 Priority: STAT, Start date: 09/01/11 4:06:00, Stop date: 09/01/11 4:06:00 ondansetron 2011-0 No Bee L 4 mg, Memoria 3- [place] Route: l 09:06: IVP, Drug [place] 00 form: INJ, ONCE, Priority: STAT, Start [...] L 4 mg, Mem oria Sulfate 3-13 [place] Route: l 09:06: IVP, ONCE, Vin 00 Priority: STAT, Start date: 09/01/11 4:06:00, Stop date: 09/01/11 4:06:00 ondansetron 2012-0 No Bee L 4 mg, Memoria 3-13 [place] Route: l 09:06: IVP, Drug Vin 00 form: INJ, ONCE, Priority: STAT, Start date: 09/01/11 4:06:00, Stop date: 09/01/11 4:06:00 morphine 2012-0 No Bee L 4 mg, Mem oria Sulfate 3-13 [place] Route: l 09:06: IVP, ONCE, [place] 00 Priority: STAT, Start date: 09/01/11 4:06:00, [...] L 1,000 mL, M emoria Chloride 3-13 [place] Rate: l 0.9% 08:42: 1,000 [place] (Bolus) IV 00 ml/hr, 1000 mL Infuse [...] L 1,000 mL, M emoria Chloride 3- [place] Rate: l 0.9% 08:42: 1,000 [place] (Bolus) IV 00 ml/hr, 1000 mL Infuse over: 1 hr, Route: IV, Dosing Weight 68.182 kg, Total Volume: 1,000, [place] Dose, Priority: STAT, Start date: 09/01/11 3:42:00, Duration: 1 doses or times, Stop date: 09/01/11 4:41:00 Sodium 2011-0 No Bee L 1,000 mL, M emoria Chloride - [place] Rate: l 0.9% 08:42: 1,000 [place] (Bolus) IV 00 ml/hr, 1000 mL Infuse over: 1 hr, Route: IV, Dosing Weight 68.182 kg, Total Volume: 1,000, [place] Dose, Priority: STAT, Start date: 09/01/11 3:42:00, Duration: 1 doses or times, Stop date: 09/01/11 4:41:00 Insulin 2011-0 No Bee L 8 unit, Me moria regular -13 [place] 0.08 mL, l 08:30: Route: Vin 00 IVP, Drug form: SOLN, ONCE, Priority: STAT, Start date: 09/01/11 3:30:00, Stop date: 09/01/11 3:30:00 Insulin 2011-0 No Bee L 8 unit, Me moria regular -13 [place] 0.08 mL, l 08:30: Route: [place] 00 IVP, Drug form: SOLN, ONCE, Priority: STAT, Start date: 09/01/11 3:30:00, Stop date: 09/01/11 3:30:00 Insulin 2011-0 No Bee L 8 unit, Me moria regular 3-13 [place] 0.08 mL, l 08:30: Route: [place] 00 IVP, Drug form: SOLN, ONCE, Priority: STAT, Start date: 09/01/11 3:30:00, Stop date: 09/01/11 3:30:00 Insulin 2011-0 No Bee L 8 unit, Me moria regular 3-13 [place] 0.08 mL, l 08:30: Route: [place] 00 IVP, Drug form: SOLN, ONCE, Priority: STAT, Start date: 09/01/11 3:30:00, Stop date: 09/01/11 3:30:00 Insulin 2011-0 No Bee L 8 unit, Me moria regular 08-31 [place] 0.08 mL, l 08:30: Route: Vin 00 IVP, Drug form: SOLN, ONCE, Priority: STAT, Start date: 09/01/11 3:30:00, Stop date: 09/01/11 3:30:00 Sodium 2011-0 No Bee L 1,000 mL, M emoria Chloride - [place] Rate: l 0.9% 07:29: 1,000 Vin (Bolus) [...] 3- [place] Rate: l 0.9% 07:29: 1,000 [place] (Bolus) IV 00 ml/hr, 1,000 mL Infuse [...] 3-13 [place] Rate: l 0.9% 07:29: 1,000 [place] (Bolus) IV 00 ml/hr, 1,000 mL Infuse over: 1 hr, Route: IV, Dosing Weight 68.182 kg, Total Volume: 1,000, Bolus Dose, Priority: STAT, Start date: 09/01/11 2:29:00, Duration: 1 doses or times, Stop date: 09/01/11 3:28:00 potassium 2012-0 No Brooks Noam 40 mEq, 2 Memoria chloride 3-04 Akmal tab, l 15:00: Route: PO, [place] Drug form: ERTAB, BID, Start date: 08/23/11 [...] 3-04 Akmal tab, l 15:00: Route: PO, [place] Drug form: ERTAB, BID, Start date: 08/23/11 [...] Akmal SUB-Q, l units/mL 14:42: BID, 3 [place] subcutaneou 04 vial, 3, s injection 3, Substituti on Allowed, SUSP Novolin N Yes Brooks Noam 18 Units, Memoria 100 3-04 [place] SUB-Q, l units/mL 14:42: BID, 3 [place] subcutaneou 04 vial, 3, s injection 3, Substituti on Allowed, SUSP Novolin N Yes Brooks Noam 18 Units, Memoria 100 3-04 [place] SUB-Q, l units/mL 14:42: BID, 3 Vin subcutaneou 04 vial, 3, s injection 3, Substituti on Allowed, SUSP Novolin N Yes Brooks Noam 18 Units, Memoria 100 3-04 [place] SUB-Q, l units/mL 14:42: BID, 3 [place] subcutaneou 04 vial, 3, s injection 3, Substituti on Allowed, SUSP insulin Yes Brooks Noam 5 Units, Memoria regular 3-04 [place] SUB-Q, l human 14:40: TID, 30 [place] recombinant 10 vial, 3, 100 3, units/mL Substituti injectable on solution Allowed, before breakfast lunch and dinner, SOLNbefore breakfast lunch and dinner insulin 0 Yes Brooks Noam 5 Units, Memoria regular 3-04 [place] SUB-Q, l human 14:40: TID, 30 Vin recombinant 10 vial, 3, 100 3, units/mL Substituti injectable on solution Allowed, before breakfast lunch and dinner, SOLNbefore breakfast lunch and dinner insulin 0 Yes Brooks Noam 5 Units, Memoria regular 3-04 [place] SUB-Q, l human 14:40: TID, 30 [place] recombinant 10 vial, 3, 100 3, units/mL Substituti injectable on solution Allowed, before breakfast lunch and dinner, SOLNbefore breakfast lunch and dinner insulin Yes Brooks Noam 5 Units, Memoria regular 3-04 [place] SUB-Q, l human 14:40: TID, 30 [place] recombinant 10 vial, 3, 100 3, units/mL Substituti injectable on solution Allowed, before breakfast lunch and dinner, SOLNbefore breakfast lunch and dinner insulin Yes Brooks Noam 5 Units, Memoria regular 3-04 [place]km[place] SUB-Q, l human 14:40: TID, 30 [place] recombinant 10 vial, 3, 100 3, units/mL Substituti injectable on solution Allowed, before breakfast lunch and dinner, SOLNbefore breakfast lunch and dinner potassium 2011-0 No Brooks Noam 20 mEq, Memoria chloride 3-04 Akm[place] 100 mL, l 14:00: Route: [place] 00 IVPB, Drug form: INJ, Q2H, Start date: 08/23/11 8:00:00, Duration: 2 doses or times, Stop date: 08/23/11 10:00:00 potassium 2011-0 No Brooks Noam 20 mEq, Memoria chloride 3-04 Akmal 100 mL, l 14:00: Route: [place] 00 IVPB, Drug form: INJ, Q2H, Start [...] 3-04 Akmal 100 mL, l 14:00: Route: [place] 00 IVPB, Drug form: INJ, Q2H, Start date: 08/23/11 8:00:00, Duration: 2 doses or times, Stop date: 08/23/11 10:00:00 calcium 2011-0 No Brooks Noam 1 gm, Mem oria chloride 3-04 [place] Route: l 13:28: IVPB, [place] 00 ONCE, Priority: STAT, Start date: 08/23/11 7:28:00, Stop date: 08/23/11 7:28:00 calcium 2011-0 No Brooks Noam 1 gm, Mem oria chloride 3-04 [place] Route: l 13:28: IVPB, [place] 00 ONCE, Priority: STAT, Start date: 08/23/11 7:28:00, Stop date: 08/23/11 7:28:00 calcium 2011-0 No Brooks Noam 1 gm, Mem oria chloride 3-04 [place] Route: l 13:28: IVPB, Vin 00 ONCE, Priority: STAT, Start date: 08/23/11 7:28:00, Stop date: 08/23/11 7:28:00 calcium 2011-0 No Brooks Noam 1 gm, Mem oria chloride 3-04 [place] Route: l 13:28: IVPB, [place] 00 ONCE, Priority: STAT, Start date: 08/23/11 [...] Akmal mL, Route: l 12:26: IVPB, Drug [place] form: INJ, ONCE, Total dose = 2 [...] Rodriguez 10 mL, l 16:25: Ahmed Route: [place] 00 IVPB, ONCE, Start date: 08/22/11 10:25:00, Stop date: 08/22/11 10:25:00 calcium 2012-0 No [place] 1,000 mg, Mem oria gluconate 3-03 Rodriguez 10 mL, l 16:25: Ahmed Route: [place] 00 IVPB, ONCE, Start date: 08/22/11 10:25:00, Stop date: 08/22/11 10:25:00 calcium 2011-0 No [place] 1,000 mg, Mem oria gluconate 3-03 Rodriguez 10 mL, l 16:25: Ahmed Route: [place] 00 IVPB, ONCE, Start date: 08/22/11 10:25:00, [...] 30 day, Stop date: 08/22/11 12:00:00 potassium 2011-0 No Brooks Noam 40 mEq, 2 Memoria chloride 20 3-03 Akmal tab, l mEq oral 15:00: Route: PO, Her braden tablet, 00 Drug form: extended ERTAB, release Daily, Start date: 08/22/11 9:00:00, Duration: 30 day, Stop date: 08/22/11 12:00:00 magnesium 2011-0 No Brooks Noam 2 gm, 50 Memoria sulfate 3-03 Akmal mL, Route: l 13:26: IVPB, Drug [place] form: INJ, ONCE, Total dose = 2 gm, Start date: 08/22/11 7:26:00, Duration: 1 doses or times, Stop date: 08/22/11 7:26:00 magnesium 2012-0 No Brooks Noam 2 gm, 50 Memoria sulfate 3-03 Akmal mL, Route: l 13:26: IVPB, Drug [place] 00 form: INJ, ONCE, Total dose = [...] Stop date: 09/19/11 21:00:00 lisinopril 2012-0 No Uyry 10 mg, 1 Memoria 3-02 Gato tab, [...] 3-02 Akmal tab, l 15:00: Route: PO, [place] 00 Drug form: TAB, Daily, Start date: [...] 30 day, Stop date: 09/20/11 8:42:00 hydrALAZINE 2012-0 No Yury 10 mg, 0.5 Memoria 3-02 [...] mL, Route: l 17:15: Ahmed IVP, Drug [place] 00 form: INJ, Q8H, PRN Nausea, Start date: 08/20/11 11:15:00, Duration: 30 day, Stop date: 09/19/11 11:14:00 Zofran 2011-0 No [place] 4 mg, 2 Memori a 3-01 Rodriguez mL, Route: l 17:15: Ahmed IVP, Drug [place] 00 form: INJ, Q8H, PRN Nausea, Start date: 08/20/11 11:15:00, Duration: 30 day, Stop date: 09/19/11 11:14:00 Zofran 2012-0 No [place] 4 mg, 2 Memori a 3-01 Rodriguez mL, Route: l 17:15: Ahmed IVP, Drug [place] 00 form: INJ, Q8H, PRN Nausea, Start date: 08/20/11 11:15:00, Duration: 30 day, Stop date: 09/19/11 11:14:00 Zofran 2012-0 No [place] 4 mg, 2 Memori a 3-01 Rodriguez mL, Route: l 17:15: Ahmed IVP, Drug [place] 00 form: INJ, Q8H, PRN Nausea, Start date: 08/20/11 11:15:00, Duration: 30 day, Stop date: 09/19/11 11:14:00 Zofran 2011-0 No [place] 4 mg, 2 Memori a 3-01 Rodriguez mL, Route: l 17:15: Ahmed IVP, Drug [place] 00 form: INJ, Q8H, PRN Nausea, Start date: 08/20/11 11:15:00, Duration: 30 day, Stop date: 09/19/11 11:14:00 insulin 2011-0 No Yury 10 unit, 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 08-19 Gato Route: l H 16:00: Rivero SUB-Q, Nidia nn 00 ONCE, Start date: 08/20/11 10:00:00, Stop date: 08/20/11 10:00:00 insulin 2011-0 No Yury 10 unit, 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 08-19 Gato Route: l H 16:00: Rivero SUB-Q, Nidia nn 00 ONCE, Start date: 08/20/11 10:00:00, Stop date: 08/20/11 10:00:00 insulin 2011-0 No Yury 10 unit, 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 08-19 Gato Route: l H 16:00: Rivero SUB-Q, Nidia nn 00 ONCE, Start date: 08/20/11 10:00:00, Stop date: 08/20/11 10:00:00 insulin 2011-0 No Yury 10 unit, 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 - [place] Route: l H 16:00: Rivero SUB-Q, Nidia nn 00 ONCE, Start date: 08/20/11 10:00:00, Stop date: 08/20/11 10:00:00 insulin 2012-0 No Yury 10 unit, 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 08-19 [place] Route: l H 16:00: Rivero SUB-Q, Nidia nn 00 ONCE, Start date: 08/20/11 10:00:00, Stop date: 08/20/11 10:00:00 trazodone 2012-0 Yes 200 mg, 2 Mem oria 100 mg oral 3-01 tab, PO, l tablet 15:37: Bedtime, [place] 27 90 tab, Substituti on Allowed, TAB [...] tab, PO, l tablet 15:35: BID, 60 [place] 25 tab, Substituti on Allowed, TAB benztropine 2012-0 Yes 1 mg, 1 Mem oria 1 mg oral 3-01 tab, PO, l tablet 15:35: BID, 60 [place] 25 tab, Substituti on Allowed, TAB benztropine [...] insulin No Yury 10 unit, 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 08-19 [place] Route: l H 15:00: Rivero [...] 30 day, Stop date: 09/18/11 9:00:00 insulin 2012-0 No Yury 10 unit, 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 3-01 [place] Route: l H 15:00: Rivero [...] 2011-0 No Yury 10 unit, 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 3- [place] Route: l H 15:00: Rivero [...] 2011-0 No Yury 10 unit, 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 3-01 [place] Route: l H 15:00: Rivero [...] 2011-0 No Yury 10 unit, 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 3- [place] Route: l H 15:00: Rivero [...] Stop date: 08/20/11 8:30:00 potassium 2012-0 No Yuyr 15 mmol, 5 Memoria phosphate 3-01 Gato [...] date: 08/20/11 14:00:00 potassium 2012-0 No Yury 15 mmol, M emoria phosphate 3- [place] Route: l 12:47: Rivero IVPB, PRN, H ermann 00 PRN Abnormal Lab Result, Start date: 08/20/11 6:47:00, Duration: 30 day, Stop date: 09/19/11 7:46:00 potassium 2012-0 No Yury 15 mmol, M emoria phosphate 3- [place] Route: l 12:47: Rivero IVPB, PRN, H ermann 00 PRN Abnormal Lab Result, Start date: 08/20/11 6:47:00, Duration: 30 day, Stop date: 09/19/11 7:46:00 potassium 2012-0 No Yury 15 mmol, M emoria phosphate 3- [place] Route: l 12:47: Rivero IVPB, PRN, H ermann 00 PRN Abnormal Lab Result, Start date: 08/20/11 6:47:00, Duration: 30 day, Stop date: 09/19/11 7:46:00 potassium 2012-0 No Yury 15 mmol, M emoria phosphate [...] No Brooks Noam 10 unit, Memoria regular 3-01 Akmal SUB-Q, l 09:28: BID, Vin 23 Substituti on Allowed Insulin 2011-0 No Brooks Noam 10 unit, Memoria regular - Akmal SUB-Q, l 09:28: BID, Vin 23 Substituti on Allowed Insulin 2011-0 No Brooks Noam 10 unit, Memoria regular - Akmal SUB-Q, l 09:28: BID, [place] 23 Substituti on Allowed Insulin No Brooks Noam 10 unit, Memoria regular - Akmal SUB-Q, l 09:28: BID, [place] 23 Substituti on Allowed Insulin 0 No Brooks Noam 10 unit, Memoria regular - Akmal SUB-Q, l 09:28: BID, [place] 23 Substituti on Allowed insulin No 10 unit, Memori a 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 - SUB-Q, l H 09:26: BID, Vin 18 Substituti on Allowed insulin No 10 unit, Memori a 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 - SUB-Q, l H 09:26: BID, [place] 18 Substituti on Allowed insulin No 10 unit, Memori a 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 - SUB-Q, l H 09:26: BID, [place] 18 Substituti on Allowed insulin 2011-0 No 10 unit, Memori a 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 - SUB-Q, l H 09:26: BID, [place] 18 Substituti on Allowed insulin 2011-0 No 10 unit, Memori a 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 - SUB-Q, l H 09:26: BID, [place] 18 Substituti on Allowed NS 1,000 mL [...] 3-01 Akmal Rate: 150 l 09:06: ml/hr, [place] 00 Infuse over: 6.7 hr, Route: IV, Total Volume: 1,000, Start date: 08/20/11 3:06:00, Duration: 30 day, Stop date: 09/19/11 3:05:00 insulin 2011-0 No Yury 3 unit, Mendoza janiec aspart 3-01 [place] 0.03 mL, l 09:06: Rivero Route: Nidia nn 00 SUB-Q, Drug form: SOLN, Bedtime, PRN Blood Glucose Results, Start date: 08/20/11 3:06:00, Duration: 30 day, Stop date: 09/19/11 3:05:00 NS 1,000 mL No Brooks Noam 1,000 mL, Memoria 3- Akmal Rate: 150 l 09:06: ml/hr, [place] 00 Infuse over: 6.7 hr, Route: IV, [...] 3:05:00 NS 1,000 mL 2011-0 No Didier Fangs 1,000 mL, Memoria 3-01 Akmal Rate: 150 l 09:06: ml/hr, [place] Infuse over: 6.7 hr, Route: IV, Total [...] 2011-0 No Yury 18 unit, 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 3-01 [place] 0.18 mL, l H 08:58: Rivero Route: Nidia nn 00 SUB-Q, Drug form: INJ, Q12H, Start date: 08/20/11 2:58:00, Stop date: 09/18/11 21:00:00 insulin 2011-0 No Yury 18 unit, 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 3-01 [place] 0.18 mL, l H 08:58: Rivero Route: Nidia nn 00 SUB-Q, Drug form: INJ, Q12H, Start date: 08/20/11 2:58:00, Stop date: 09/18/11 21:00:00 insulin 2011-0 No Yury 18 unit, 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 3-01 [place] 0.18 mL, l H 08:58: Rivero Route: Nidia nn 00 SUB-Q, Drug form: INJ, Q12H, Start date: 08/20/11 2:58:00, Stop date: 09/18/11 21:00:00 insulin 2012-0 No Yury 18 unit, 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 3-01 [place] 0.18 mL, l H 08:58: Rivero Route: Nidia nn 00 SUB-Q, Drug form: INJ, Q12H, Start date: 08/20/11 2:58:00, Stop date: 09/18/11 21:00:00 insulin 2011-0 No Yury 18 unit, 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 3-01 [place] 0.18 mL, l H 08:58: [...] l 08:48: Rivero Drug form: H erm 00 PDR/INJ, PRN, PRN Blood Glucose Results, [...] insulin 2011-0 No Yury 2 unit, Mendoza jaince aspart 3-01 [place] 0.02 mL, l 08:48: [...] l 08:48: Rivero Drug form: H erm 00 PDR/INJ, PRN, PRN Blood Glucose Results, [...] Route: l 08:46: Rivero IVP, Drug He Form: INJ, PRN, PRN Blood Glucose Results, Start date: 08/20/11 2:46:00, Duration: 30 day, Stop date: 09/19/11 3:45:00 Dextrose 2011-0 No Yury 25 gm, 50 M emoria 50% Syringe 08-19 G[place] ml, Route: l 08:46: Rivero IVP, Drug He Form: INJ, PRN, [...] 3:45:00 ondansetron 2011-0 [facility] [place] Route: l 07:42: Dawson IVP, Drug Herm naeem 00 Pu form: INJ, ONCE, Priority: STAT, Start date: 08/20/11 1:42:00, Stop date: 08/20/11 1:42:00 ondansetron 2011-0 No [facility] [place] Route: l 07:42: [place] IVP, Drug Herm naeem 00 Pu form: INJ, ONCE, Priority: STAT, Start date: 08/20/11 1:42:00, Stop date: 08/20/11 1:42:00 ondansetron 2011-0 No Hughes-Jason 4 mg, emoria 08-19 [place] Route: l 07:42: [place] IVP, Drug Herm naeem 00 Pu form: INJ, ONCE, Priority: STAT, Start date: 08/20/11 1:42:00, Stop date: 08/20/11 1:42:00 ondansetron 2012-0 No Hughes-Jason 4 mg, M emoria 08-19 [place] Route: l 07:42: [place] IVP, Drug Herm naeem 00 Pu form: INJ, ONCE, Priority: STAT, Start date: 08/20/11 1:42:00, Stop date: 08/20/11 1:42:00 ondansetron 2011-0 No Hughes-Jason 4 mg, M emoria 08-19 [place] Route: l 07:42: [place] IVP, Drug Herm naeem 00 Pu form: INJ, ONCE, Priority: STAT, Start date: 08/20/11 1:42:00, Stop date: 08/20/11 1:42:00 GI cocktail 2011-0 No Hughes-Jason 30 ml, Memoria 08-19 [place] Route: PO, l 05:12: Dawson Drug Form: Her braden 00 Pu SUSP, ONCE, STAT, Start date: 08/19/11 23:12:00, Stop date: 08/19/11 23:12:00 GI cocktail 0 No Hughes-Jason 30 ml, Memoria 08-19 [place] Route: PO, l 05:12: [place] Drug Form: Her braden 00 Pu SUSP, ONCE, STAT, Start date: 08/19/11 23:12:00, Stop date: 08/19/11 23:12:00 GI cocktail 0 No Hughes-Jason 30 ml, Memoria 08-19 [place] Route: PO, l 05:12: [place] Drug Form: Her braden 00 Pu SUSP, ONCE, STAT, Start date: 08/19/11 23:12:00, Stop date: 08/19/11 23:12:00 GI cocktail 0 No Hughes-Jason 30 ml, Memoria 08-19 [place] Route: PO, l 05:12: [place] Drug Form: Her braden 00 Pu SUSP, ONCE, STAT, Start date: 08/19/11 23:12:00, Stop date: 08/19/11 23:12:00 GI cocktail 0 No Hughes-Jason 30 ml, Memoria 08-19 [place] Route: PO, l 05:12: [place] Drug Form: Her braden 00 Pu SUSP, ONCE, STAT, Start date: 08/19/11 23:12:00, Stop date: 08/19/11 23:12:00 ondansetron 2012-0 No Hughes-Jason 4 mg, M emoria 3- [place] Route: PO, l 05:10: [place] Drug form: Her braden 00 Pu TABDIS, ONCE, Priority: STAT, Start date: 08/19/11 23:10:00, Stop date: 08/19/11 23:10:00 Lactated 2011-0 No Hughes-Jason 1,000 mL, Memoria Ringers 3- [place] Rate: l (Bolus) IV 05:10: [place] 1,000 He rmann 1000 mL 00 Pu ml/hr, Infuse over: 1 hr, Route: IV, Total Volume: 1,000, Bolus Dose, Priority: STAT, Start date: 08/19/11 23:10:00, Duration: 1 doses or times, Stop date: 08/20/11 0:09:00 ondansetron 2011-0 No Hughes-Jason 4 mg, M emoria 08-19 [place] Route: PO, l 05:10: [place] Drug form: Her braden 00 Pu TABDIS, ONCE, Priority: STAT, Start date: 08/19/11 23:10:00, Stop date: 08/19/11 23:10:00 Lactated 2011-0 No Hughes-Jason 1,000 mL, Memoria Ringers - [place] Rate: l (Bolus) IV 05:10: Dawson 1,000 He rmann 1000 mL 00 Pu ml/hr, Infuse over: 1 hr, Route: IV, Total Volume: 1,000, Bolus Dose, Priority: STAT, Start date: 08/19/11 23:10:00, Duration: 1 doses or times, Stop date: 08/20/11 0:09:00 ondansetron 2011-0 No Hughes-Jason 4 mg, M emoria 3- [place] Route: PO, l 05:10: [place] Drug form: Her braden 00 Pu TABDIS, ONCE, Priority: STAT, Start date: 08/19/11 23:10:00, Stop date: 08/19/11 23:10:00 Lactated 2011-0 No Hughes-Jason 1,000 mL, Memoria Ringers 3- [place] Rate: l (Bolus) IV 05:10: Dawson 1,000 He rmann 1000 mL 00 Pu ml/hr, Infuse over: 1 hr, Route: IV, Total Volume: 1,000, Bolus Dose, Priority: STAT, Start date: 08/19/11 23:10:00, Duration: 1 doses or times, Stop date: 08/20/11 0:09:00 ondansetron 2012-0 No Hughes-Jason 4 mg, M emoria 3 [place] Route: PO, l 05:10: [place] Drug form: Her braden 00 Pu TABDIS, ONCE, Priority: STAT, Start date: 08/19/11 23:10:00, Stop date: 08/19/11 23:10:00 Lactated 2011-0 No Hughes-Jason 1,000 mL, Memoria Ringers 08-19 [place] Rate: l (Bolus) IV 05:10: Dawson 1,000 He rmann 1000 mL 00 Pu ml/hr, Infuse over: 1 hr, Route: IV, Total Volume: 1,000, Bolus Dose, Priority: STAT, Start date: 08/19/11 23:10:00, Duration: 1 doses or times, Stop date: 08/20/11 0:09:00 ondansetron 2011-0 No Hughes-Jason 4 mg, emoria 08-19 [place] Route: PO, l 05:10: Dawson Drug form: Her braden 00 Pu TABDIS, ONCE, Priority: STAT, Start date: 08/19/11 23:10:00, Stop date: 08/19/11 23:10:00 Lactated 2011-0 No Hughes-Jason 1,000 mL, Memoria Ringers 08-19 [place] Rate: l (Bolus) IV 05:10: [place] 1,000 He rmann 1000 mL 00 Pu ml/hr, Infuse over: 1 hr, Route: IV, Total Volume: 1,000, Bolus Dose, Priority: STAT, Start date: 08/19/11 23:10:00, Duration: 1 doses or times, Stop date: 08/20/11 0:09:00 Insulin 2011-0 No Hughes-Jason 7 unit, Mem oria regular 08-19 [place] 0.07 mL, l 04:15: [place] Route: Vin 00 Pu SUB-Q, Drug form: SOLN, ONCE, Priority: STAT, Start date: 08/19/11 22:15:00, Stop date: 08/19/11 22:15:00 Insulin 2011-0 No Hughes-Jason 7 unit, Mem oria regular 3-01 [place] 0.07 mL, l 04:15: [place] Route: [place] Pu SUB-Q, Drug form: SOLN, ONCE, Priority: STAT, Start date: 08/19/11 22:15:00, Stop date: 08/19/11 22:15:00 Insulin 2011-0 No Hughes-Jason 7 unit, Mem oria regular 3- [place] 0.07 mL, l 04:15: [place] Route: Vin Pu SUB-Q, Drug form: SOLN, ONCE, Priority: STAT, Start date: 08/19/11 22:15:00, Stop date: 08/19/11 22:15:00 Insulin 0 No Hughes-Jason 7 unit, Mem oria regular 3- [place] 0.07 mL, l 04:15: [place] Route: [place] 00 Pu SUB-Q, Drug form: SOLN, ONCE, Priority: STAT, Start date: 08/19/11 22:15:00, Stop date: 08/19/11 22:15:00 Insulin 2011-0 No Hughes-Jason 7 unit, Mem oria regular 3-01 [place] 0.07 mL, l 04:15: [place] Route: [place] Pu SUB-Q, Drug form: SOLN, ONCE, Priority: STAT, Start date: 08/19/11 22:15:00, Stop date: 08/19/11 22:15:00 Geodon 60 0 No Yury 60 mg, 1 M emoria mg oral 2-29 [place] cap, PO, l capsule 23:24: Rivero BID, 180 [place] 43 cap, Substituti on Allowed, CAP Geodon 60 0 No Yury 60 mg, 1 M emoria mg oral 2-29 [place] cap, PO, l capsule 23:24: Rivero BID, 180 [place] 43 cap, Substituti on Allowed, CAP Geodon [...] PO, l capsule 23:24: Rivero BID, 180 [place] 43 cap, Substituti on Allowed, CAP trazodone 2011-0 No 300 mg, 1 Mem oria 300 mg oral 2-29 tab, PO, l tablet 23:23: Bedtime, Vin 58 15 tab, Substituti on Allowed, TAB trazodone 2011-0 No 300 mg, 1 Mem oria 300 mg oral 2-29 tab, PO, l tablet 23:23: Bedtime, [place] 58 15 tab, Substituti on Allowed, TAB [...] 2-29 tab, PO, l tablet 23:23: Bedtime, [place] 58 15 tab, Substituti on Allowed, TAB Effexor XR 2011-0 Yes Yury 75 mg, 1 Memoria 75 mg oral 2-29 [place] cap, PO, l capsule, 23:22: Rivero Daily, 30 [place] extended 24 cap, release Substituti on Allowed Effexor XR 2011-0 Yes Yury 75 mg, 1 Memoria 75 mg oral 2-29 [place] cap, PO, l capsule, 23:22: Rivero Daily, 30 [place] extended 24 cap, release Substituti on Allowed Effexor XR 2011-0 Yes Yury 75 mg, 1 Memoria 75 mg oral 2-29 [place] cap, PO, l capsule, 23:22: Rivero Daily, 30 [place] extended 24 cap, release Substituti on Allowed Effexor XR 2011-0 Yes Yury 75 mg, 1 Memoria 75 mg oral 2-29 [place] cap, PO, l capsule, 23:22: Rivero Daily, 30 [place] extended 24 cap, release Substituti on Allowed [...] ia Chloride [place] Rate: l 0.9% 22:17: Mat Titrate, Her braden (titrate) 00 Route: IV, [...] 0 No William 40 mg, Memor ia - [...] Wong Route: IV, l 21:57: Pooja ONCE, [place] 00 Start date: 08/19/11 15:57:00, Stop date: [...] Stop date: 08/19/11 15:57:00 Reglan 2011-0 No Wliliam 10 mg, Memoria 2-29 [place] Route: IV, l 21:57: Pooja ONCE, [place] 00 Start date: 08/19/11 15:57:00, Stop date: [...] Wong Route: IV, l 21:57: Pooja ONCE, [place] 00 Start date: 08/19/11 15:57:00, Stop date: [...] Wong Route: IV, l 21:57: Pooja ONCE, [place] 00 Start date: 08/19/11 15:57:00, Stop date: [...] [facility] Influenza Virus 2020-02-20 Completed [facility] y of Vaccine 00:00:00 [facility] TDAP (ADACEL) VACCINE 2019-07-25 Completed Uni versity of 00:00:00 [facility] Meningococcal B, OMV 2019-07-25 Completed Univ ersity of 00:00:00 [facility] Meningococcal 2019-07-25 Completed University of Polysaccharide 00:00:00 [place] [facility] (groups A, C, Y and Branc h W-135) conjugate vaccine (MCV4P) TDAP (ADACEL) VACCINE 2019-07-25 Completed Uni versity of 00:00:00 [facility] Meningococcal B, OMV 2019-07-25 Completed Univ ersity of 00:00:00 [facility] Meningococcal 2019-07-25 Completed University of Polysaccharide 00:00:00 [facility] tawnya (groups A, C, Y [...] hepatitis B vaccine 2018-04-07 Completed Memor ial [place] 00:00:00 hepatitis B vaccine 2018-04-07 Completed Memor ial [place] 00:00:00 influenza virus 2018-03-29 Completed [facility] [place] vaccine, inactivated 00:00:00 influenza virus 2018-03-29 Completed Memorial [place] vaccine, inactivated 00:00:00 influenza virus 2018-03-29 Completed [facility] [place] vaccine, inactivated 00:00:00 influenza virus 2018-03-29 Completed [facility] Vin vaccine, inactivated 00:00:00 influenza virus 2018-03-29 Completed [facility] Vin vaccine, inactivated 00:00:00 hepatitis B vaccine 2017-11-26 Completed Memor ial [place] 00:00:00 hepatitis B vaccine 2017-11-26 Completed Memor ial [place] 00:00:00 hepatitis B vaccine 2017-11-26 Completed Memor ial Vin 00:00:00 hepatitis B vaccine 2017-11-26 Completed Memor ial [place] 00:00:00 hepatitis B vaccine 2017-11-26 Completed Memor ial Vin 00:00:00 influenza virus 2017-10-25 Completed [facility] [place] vaccine, inactivated 00:00:00 pneumococcal 2017-10-25 Completed Memorial Her braden 23-valent vaccine 00:00:00 influenza virus 2017-10-25 Completed [facility] Vin vaccine, inactivated 00:00:00 pneumococcal 2017-10-25 Completed [facility] Her braden 23-valent vaccine 00:00:00 influenza virus 2017-10-25 Completed [facility] [place] vaccine, inactivated 00:00:00 pneumococcal 2017-10-25 Completed [facility] Her braden 23-valent vaccine 00:00:00 influenza virus 2017-10-25 Completed [facility] [place] vaccine, inactivated 00:00:00 pneumococcal 2017-10-25 Completed [facility] Her braden 23-valent vaccine 00:00:00 influenza virus 2017-10-25 Completed [facility] Vin vaccine, inactivated 00:00:00 pneumococcal 2017-10-25 Completed [facility] Her braden 23-valent vaccine 00:00:00 Influenza Virus 2017-06-22 Completed Universit y of Vaccine Quad IM 3+ 00:00:00 [facility] Influenza Virus 2017-06-22 Completed Universit y of Vaccine Quad IM 3+ 00:00:00 [facility] Influenza Virus 2016-04-02 Completed Universit y of Vaccine Quad IM 3+ 00:00:00 [facility] Influenza Virus 2016-04-02 Completed Universit y of Vaccine Quad IM 3+ 00:00:00 [facility] Influenza Virus 2015-10-28 Completed Universit y of Vaccine Quad IM 3+ 00:00:00 [facility] Influenza Virus 2015-10-28 Completed Universit y of Vaccine Quad IM 3+ 00:00:00 [facility] Vital Signs Vital Name Observation Time Observation Value Comments Source Systolic blood 2021-01-03 12:57:00 201 mm[Hg] [facility] pressure Diastolic blood 2021-01-03 12:57:00 104 mm[Hg] [facility] Heart rate 2021-01-03 12:57:00 73 /[facility] 2021-01-03 12:57:00 [facility] height 2021-01-03 12:57:00 160 [facility] Body weight 2021-01-03 12:57:00 72.122 kg [facility] BMI 2021-01-03 12:57:00 28.17 kg/m2 [facility] Systolic blood 2021-01-03 12:57:00 201 mm[Hg] [facility] Diastolic blood 2021-01-03 12:57:00 104 mm[Hg] [facility] Heart rate 2021-01-03 12:57:00 73 /[facility] 2021-01-03 12:57:00 36 [facility] height 2021-01-03 12:57:00 160 [facility] 2021-01-03 12:57:00 [facility]122 [facility] BMI 2021-01-03 12:57:00 28.17 kg/m2 [facility] Systolic blood 2020-06-27 16:33:00 171 mm[Hg] Univer sity of pressure [facility] Diastolic blood 2020-06-27 16:33:00 98 mm[Hg] Unive rsity of [facility] Heart rate 2020-06-27 16:33:00 71 /min [facility] [place] Respiratory rate 2020-06-27 16:29:00 19 /min Univ ersity of [facility] Body height 2020-06-27 16:29:00 154.9 cm [facility] Body weight 2020-06-27 16:29:00 77.293 kg [facility] BMI 2020-06-27 16:29:00 32.20 kg/m2 [facility] Oxygen saturation in 2020-06-27 16:29:00 99 /min [facility] Arterial blood by [facility] Pulse oximetry Branch Systolic blood 2020-06-27 16:33:00 171 mm[Hg] Univer sity of pressure [facility] Diastolic blood 2020-06-27 16:33:00 98 mm[Hg] Unive rsity of pressure [facility] Heart rate 2020-06-27 16:33:00 71 /min [facility] Respiratory rate 2020-06-27 16:29:00 19 /min Univ ersity of [facility] Body height 2020-06-27 16:29:00 154.9 cm [facility] Body weight 2020-06-27 16:29:00 77.293 kg [facility] BMI 2020-06-27 16:29:00 32.20 kg/m2 [facility] Oxygen saturation in 2020-06-27 16:29:00 99 /min University of Arterial blood by [facility] Pulse oximetry Branch Height/Length 2021-07-08 11:50:13 154.9 cm Measured Weight Dosing 2021-07-08 11:50:13 85.00 kg Height/Length 2021-07-08 11:47:31 154.9 cm Measured Weight Dosing 2021-07-08 11:47:31 85.00 kg Height/Length 2021-07-08 11:47:20 154.9 cm Measured Weight Dosing 2021-07-08 11:47:20 85.00 kg Systolic blood 2021-07-08 19:43:00 189 mm[Hg] [facility] pressure Diastolic blood 2021-07-08 19:43:00 104 mm[Hg] [facility] pressure Heart rate 2021-07-08 18:56:00 74 /min [facility] Body temperature 2021-07-08 18:56:00 36.39 Cathleen [facility] Body height 2021-07-08 18:56:00 157.5 cm [facility] Body weight 2021-07-08 18:56:00 72.938 kg [facility] BMI 2021-07-08 18:56:00 29.41 kg/m2 [facility] Oxygen saturation in 2021-07-08 18:56:00 100 /min [facility] Arterial blood by Pulse oximetry Respiratory rate 2021-06-18 16:36:00 11 /min [facility] Systolic (mm Hg) 2021-01-29 20:03:00 Mendoza rial [place] Diastolic (mm Hg) 2021-01-29 20:03:00 Mem orial [place] Systolic (mm Hg) 2021-01-29 19:40:00 Mendoza rial [place] Diastolic (mm Hg) 2021-01-29 19:40:00 Mem orial [place] Systolic (mm Hg) 2021-01-29 18:05:00 Mendoza rial Vin Diastolic (mm Hg) 2021-01-29 18:05:00 Mem orial [place] Respitory Rate 2021-01-29 16:55:00 Memori al [place] Temperature Oral (F) 2021-01-29 16:45:00 97.3 F [facility] [place] Respitory Rate 2021-01-29 16:45:00 Memori al Vin Respitory Rate 2021-01-29 16:30:00 Memori al [place] Temperature Oral (F) 2021-01-29 13:10:00 97.6 F [facility] [place] Systolic (mm Hg) 2021-01-27 05:00:00 Mendoza rial Vin Diastolic (mm Hg) 2021-01-27 05:00:00 Mem orial Vin Systolic (mm Hg) 2021-01-27 04:00:00 Mendoza rial [place] Diastolic (mm Hg) 2021-01-27 04:00:00 Mem orial Vin Systolic (mm Hg) 2021-01-27 03:00:00 Mendoza rial [place] Diastolic (mm Hg) 2021-01-27 03:00:00 Mem orial Vin Respitory Rate 2021-01-26 19:00:00 Memori al [place] Respitory Rate 2021-01-26 18:00:00 Memori al [place] Respitory Rate 2021-01-26 17:00:00 Memori al Vin Temperature Oral (F) 2021-01-22 13:00:00 97.6 F [facility] [place] Height 2021-01-21 18:25:00 149.86 cm [facility] [place] Weight 2021-01-21 18:25:00 [facility] [place] BMI Calculated 2021-01-21 18:25:00 Memori al [place] Height 2021-01-21 17:09:00 157.48 cm [facility] [place] Height 2021-01-21 13:09:00 157.48 cm [facility] [place] Weight 2021-01-21 13:09:00 [facility] [place] BMI Calculated 2021-01-21 13:09:00 Memori al Vin Heart Rate 2021-01-21 12:50:00 [facility] [place] Systolic (mm Hg) 2020-12-24 15:43:00 Mendoza rial Vin Diastolic (mm Hg) 2020-12-24 15:43:00 Mem orial [place] Heart Rate 2020-12-24 15:43:00 [facility] [place] Height 2020-12-24 15:43:00 154.94 cm [facility] Vin Weight 2020-12-24 15:43:00 [facility] Vin BMI Calculated 2020-12-24 15:43:00 Memori al Vin Systolic (mm Hg) 2016-07-30 14:00:00 Mendoza rial Vin Diastolic (mm Hg) 2016-07-30 14:00:00 Mem orial Vin Respitory Rate 2016-07-30 14:00:00 Memori al [place] Heart Rate 2016-07-30 14:00:00 [facility] [place] Temperature Oral (F) 2016-07-30 14:00:00 97.4 F [facility] [place] Systolic (mm Hg) 2016-07-30 10:45:00 Mendoza rial [place] Diastolic (mm Hg) 2016-07-30 10:45:00 Mem orial Vin Heart Rate 2016-07-30 10:45:00 [facility] [place] Temperature Oral (F) 2016-07-30 10:45:00 97.2 F [facility] [place] Respitory Rate 2016-07-30 10:45:00 Memori al Vin Heart Rate 2016-07-30 06:35:00 [facility] Vin Temperature Oral (F) 2016-07-30 06:35:00 97.0 F [facility] [place] Respitory Rate 2016-07-30 06:35:00 Memori al Vin Systolic (mm Hg) 2016-07-30 06:35:00 Mendoza rial [place] Diastolic (mm Hg) 2016-07-30 06:35:00 Mem orial [place] Weight 2016-07-24 02:13:00 [facility] Vin BMI Calculated 2016-07-24 02:13:00 Memori al [place] Height 2016-07-24 02:13:00 160.02 cm [facility] [place] Respitory Rate 2016-06-15 15:00:00 Memori al [place] Systolic (mm Hg) 2016-06-15 15:00:00 Mendoza rial Vin Diastolic (mm Hg) 2016-06-15 15:00:00 Mem orial Vin Respitory Rate 2016-06-15 14:00:00 Memori al [place] Systolic (mm Hg) 2016-06-15 14:00:00 Mendoza rial Vin Diastolic (mm Hg) 2016-06-15 14:00:00 Mem orial Vin Respitory Rate 2016-06-15 13:29:00 Memori al Vin Systolic (mm Hg) 2016-06-15 13:29:00 Mendoza rial [place] Diastolic (mm Hg) 2016-06-15 13:29:00 Mem orial Vin Temperature Oral (F) 2016-06-14 10:56:00 97.1 F [facility] [place] Temperature Oral (F) 2016-06-14 06:55:00 97.1 F [facility] [place] Temperature Oral (F) 2016-06-12 10:00:00 96.8 F [facility] Weight 2016-06-11 04:25:00 [facility] Height 2016-06-11 04:25:00 160.02 cm [facility] BMI Calculated 2016-06-11 04:25:00 [facility] Heart Rate 2016-06-11 02:04:00 [facility] Heart Rate 2016-06-11 00:00:00 [facility] Heart Rate 2016-06-10 20:30:00 [facility] Weight 2016-06-10 16:04:00 [facility] [place] BMI Calculated 2016-06-10 16:04:00 [facility] Height 2016-06-10 16:04:00 160.02 cm [facility] Temperature Oral (F) 2014-06-26 15:12:00 98.0 F [facility] Systolic (mm Hg) 2014-06-26 15:12:00 [facility] Heart Rate 2014-06-26 15:12:00 [facility] Diastolic (mm Hg) 2014-06-26 15:12:00 Mem o[facility] Vin Respitory Rate 2014-06-26 15:12:00 Memori al Vin Systolic (mm Hg) 2014-06-26 13:53:00 [facility] rial Vin Diastolic (mm Hg) 2014-06-26 13:53:00 [facility] Respitory Rate 2014-06-26 13:53:00 [facility] Temperature Oral (F) 2014-06-26 13:53:00 98.0 F [facility] Temperature Oral (F) 2014-06-26 12:37:00 98.2 F [facility] Respitory Rate 2014-06-26 12:37:00 [facility] Systolic (mm Hg) 2014-06-26 12:37:00 [facility] rial Vin Diastolic (mm Hg) 2014-06-26 12:37:00 Mem [facility] Vin Heart Rate 2014-06-26 09:21:00 [facility] Heart Rate 2014-06-26 06:08:00 [facility] Height 2014-06-26 05:35:00 154.94 cm [facility] Weight 2014-06-26 05:35:00 [facility] BMI Calculated 2014-06-26 05:35:00 [facility] Respitory Rate 2013-04-15 06:10:00 [facility] Diastolic (mm Hg) 2013-04-15 06:10:00 Mem o[facility] Vin Heart Rate 2013-04-15 06:10:00 [facility] Systolic (mm Hg) 2013-04-15 06:10:00 [facility] Temperature Oral (F) 2013-04-15 06:10:00 98.7 F [facility] Respitory Rate 2013-04-15 05:37:00 Mem[facility] Vin Diastolic (mm Hg) 2013-04-15 05:37:00 [facility] Systolic (mm Hg) 2013-04-15 05:37:00 [facility] Temperature Oral (F) 2013-04-15 05:37:00 98.2 F [facility] Heart Rate 2013-04-15 05:37:00 [facility] Height 2013-04-15 02:06:00 160.02 cm [facility] Weight 2013-04-15 02:06:00 [facility] Temperature Oral (F) 2013-04-15 02:06:00 98.6 F [facility] Respitory Rate 2013-04-15 02:06:00 [facility] Vin Heart Rate 2013-04-15 02:06:00 [facility] Diastolic (mm Hg) 2013-04-15 02:06:00 [facility] Systolic (mm Hg) 2013-04-15 02:06:00 [facility] Vin Weight 2012-03-14 21:33:00 [facility] Systolic (mm Hg) 2011-12-01 00:33:00 [facility] Vin Respitory Rate 2011-12-01 00:33:00 [facility] Heart Rate 2011-12-01 00:33:00 [facility] Diastolic (mm Hg) 2011-12-01 00:33:00 Mem [facility] Vin Temperature Oral (F) 2011-12-01 00:33:00 99.6 F [facility] Diastolic (mm Hg) 2011-11-30 21:00:00 [facility] Vin Heart Rate 2011-11-30 21:00:00 [facility] Respitory Rate 2011-11-30 21:00:00 [facility] Systolic (mm Hg) 2011-11-30 21:00:00 [facility] Temperature Oral (F) 2011-11-30 21:00:00 99.8 F [facility] Respitory Rate 2011-11-30 16:30:00 [facility] Systolic (mm Hg) 2011-11-30 16:30:00 [facility] rial Vin Diastolic (mm Hg) 2011-11-30 16:30:00 Mem [facility] Vin Heart Rate 2011-11-30 16:30:00 [facility] Temperature Oral (F) 2011-11-30 16:30:00 99.8 F [facility] Weight 2011-11-29 11:40:00 [facility] Height 2011-11-29 11:40:00 157.48 cm [facility] Weight 2011-11-28 17:16:00 [facility] Weight 2011-09-18 13:30:00 [facility] Height 2011-09-18 13:30:00 154.94 cm [facility] Heart Rate 2011-09-09 13:31:00 [facility] Systolic (mm Hg) 2011-09-09 13:02:00 [facility] Vin Diastolic (mm Hg) 2011-09-09 13:02:00 [facility] Respitory Rate 2011-09-09 13:02:00 [facility] Temperature Oral (F) 2011-09-09 13:02:00 97.5 F [facility] Diastolic (mm Hg) 2011-09-09 08:00:00 [facility] Heart Rate 2011-09-09 08:00:00 [facility] Temperature Oral (F) 2011-09-09 08:00:00 98.6 F [facility] Respitory Rate 2011-09-09 08:00:00 [facility] Vin Systolic (mm Hg) 2011-09-09 08:00:00 [facility] Vin Respitory Rate 2011-09-09 04:55:00 Mem[facility] Vin Diastolic (mm Hg) 2011-09-09 04:55:00 [facility] Systolic (mm Hg) 2011-09-09 04:55:00 [facility] Vin Heart Rate 2011-09-09 04:55:00 [facility] Temperature Oral (F) 2011-09-09 00:55:00 98.7 F [facility] Weight 2011-09-01 19:59:00 [facility] Height 2011-09-01 19:59:00 154.94 cm [facility] Height 2011-09-01 07:01:00 154.94 cm [facility] Weight 2011-09-01 07:01:00 [facility] Respitory Rate 2011-08-23 18:00:00 [facility] Heart Rate 2011-08-23 18:00:00 [facility] Systolic (mm Hg) 2011-08-23 18:00:00 [facility] Diastolic (mm Hg) 2011-08-23 18:00:00 [facility] Temperature Oral (F) 2011-08-23 18:00:00 97.7 F [facility] Heart Rate 2011-08-23 14:24:00 [facility] Temperature Oral (F) 2011-08-23 14:24:00 98.2 F [facility] Diastolic (mm Hg) 2011-08-23 14:24:00 [facility] Systolic (mm Hg) 2011-08-23 14:24:00 [facility] Vin Respitory Rate 2011-08-23 14:24:00 [facility] Systolic (mm Hg) 2011-08-23 11:15:00 [facility] Vin Diastolic (mm Hg) 2011-08-23 11:15:00 [facility] Temperature Oral (F) 2011-08-23 11:00:00 98.3 F [facility] Heart Rate 2011-08-23 11:00:00 [facility] Respitory Rate 2011-08-22 22:00:00 [facility] Height 2011-08-20 09:12:00 154.94 cm [facility] Weight 2011-08-20 09:12:00 [facility] Height 2011-08-19 20:28:00 154.94 cm [facility] Weight 2011-08-19 20:28:00 [facility] Procedures Procedure Date / Time Performing Clinician Source Performed POC GLUCOSE 2021-06-18 17:00:00 Aurelio Schumacher Ho spital HEPATITIS B SURFACE 2021-06-18 14:07:00 Bill Cooper [facility] ANTIGEN VANCOMYCIN LEVEL, RANDOM 2021-06-18 13:44:00 [facility] HC COMPLETE BLD COUNT 2021-06-18 13:44:00 Renetta [facility] W/AUTO DIFF BASIC METABOLIC PANEL 2021-06-18 11:27:00 Renetta [facility] ESTIMATED GFR 2021-06-18 11:27:00 Aurelio Schumacher [facility] spital POC GLUCOSE 2021-06-18 08:07:00 Aurelio Schumacher Ho spital HEMODIALYSIS 2021-06-18 06:16:53 Bill Cooper Ho spital POC GLUCOSE 2021-06-18 01:26:00 Aurelio Schumacher Ho spital POC GLUCOSE 2021-06-17 21:58:00 Aurelio Schumacher Ho spital HEMODIALYSIS 2021-06-17 18:25:45 Bill Cooper Ho spital POC GLUCOSE 2021-06-17 17:36:00 Aurelio Schumacher Ho spital POC GLUCOSE 2021-06-17 13:51:00 Aurelio Schumacher Ho spital BASIC METABOLIC PANEL 2021-06-17 11:16:00 [facility] HC COMPLETE BLD COUNT 2021-06-17 11:16:00 [facility] W/AUTO DIFF ESTIMATED GFR 2021-06-17 11:16:00 [facility] POC GLUCOSE 2021-06-17 02:50:00 [facility] CONSULT TO OSTOMY CARE 2021-06-17 00:31:48 [facility] NURSE HC COMPLETE BLD COUNT 2021-06-16 23:31:00 [facility] W/AUTO DIFF BASIC METABOLIC PANEL 2021-06-16 23:31:00 [facility] ESTIMATED GFR 2021-06-16 23:31:00 [facility] POC GLUCOSE 2021-06-16 23:19:00 [facility] OR [place] < 1 HOUR 2021-06-16 22:49:00 [facility] 2021-06-16 22:36:00 Kaci [facility]lie [facility] FUNGUS CULTURE 2021-06-16 22:36:00 [facility] 2021-06-16 22:36:00 Mando Diaz [facility] GRAM STAIN 2021-06-16 22:36:00 [facility] [place] AN ELECTIVE 2021-06-16 21:30:00 Jocelyne Zepeda [facility] SUPRAGLOTTIC AIRWAY AORTOGRAPHY, POSSIBLE 2021-06-16 21:17:00 Mando Diaz [facility] ANGIOPLASTY [facility] POC , URINE 2021-06-16 20:46:00 Veto [facility] POTASSIUM LEVEL 2021-06-16 17:28:00 Isabell Dickerson [facility] Larry Romero POC GLUCOSE 2021-06-16 11:39:00 [facility] BASIC METABOLIC PANEL 2021-06-16 10:08:00 [facility] HC COMPLETE BLD COUNT 2021-06-16 10:08:00 [facility] W/AUTO DIFF PROTHROMBIN TIME WITH INR 2021-06-16 10:08:00 Char Viramontes [facility] PARTIAL THROMBOPLASTIN 2021-06-16 10:08:00 [facility]a [facility] luisa [facility] TIME (PTT) TYPE AND SCREEN 2021-06-16 10:08:00 Char Viramontes ospital ESTIMATED GFR 2021-06-16 10:08:00 [facility] POC GLUCOSE 2021-06-16 01:59:00 [facility] POC GLUCOSE 2021-06-15 22:58:00 [facility] COVID-19 QUALITATIVE 2021-06-15 19:29:00 Char Viramontes [facility] RT-PCR POC GLUCOSE 2021-06-15 17:42:00 [facility] HEMODIALYSIS 2021-06-15 16:17:54 Delfino Akbar [facility] POC GLUCOSE 2021-06-15 15:41:00 [facility] POC GLUCOSE 2021-06-15 13:44:00 [facility] POC GLUCOSE 2021-06-15 13:00:00 [facility] ECG 12-LEAD 2021-06-15 12:48:21 Leni Barker rajeshtal HC COMPLETE BLD COUNT 2021-06-15 11:42:00 [facility] W/AUTO DIFF BASIC METABOLIC PANEL 2021-06-15 11:42:00 [facility] ESTIMATED GFR 2021-06-15 11:42:00 [facility] POC GLUCOSE 2021-06-15 01:31:00 [facility] US DUPLEX ARTERIAL LOWER 2021-06-14 21:55:33 [facility] EXTREMITY RIGHT POC GLUCOSE 2021-06-14 21:51:00 [facility] POC GLUCOSE 2021-06-14 17:36:00 [facility] POC GLUCOSE 2021-06-14 13:30:00 [facility] POC GLUCOSE 2021-06-14 13:29:00 [facility] HC COMPLETE BLD COUNT 2021-06-14 10:13:00 [facility] W/AUTO DIFF BASIC METABOLIC PANEL 2021-06-14 10:13:00 [facility] ESTIMATED GFR 2021-06-14 10:13:00 [facility] POC GLUCOSE 2021-06-14 02:45:00 [facility] POC GLUCOSE 2021-06-13 21:47:00 [facility] POC GLUCOSE 2021-06-13 20:46:00 [facility] CBC WITH PLATELET AND 2021-06-13 16:10:00 [facility] DIFFERENTIAL COMPREHENSIVE METABOLIC 2021-06-13 16:10:00 [facility] PANEL ESTIMATED GFR 2021-06-13 16:10:00 [facility] HEMODIALYSIS 2021-06-13 15:26:35 [facility] POC GLUCOSE 2021-06-13 14:30:00 [facility] VANCOMYCIN LEVEL, RANDOM 2021-06-13 10:59:00 Juwan You [facility] POC GLUCOSE 2021-06-13 10:40:00 [facility] POC GLUCOSE 2021-06-13 02:28:00 [facility] POC GLUCOSE 2021-06-13 00:16:00 [facility] POC GLUCOSE 2021-06-12 23:31:00 [facility] POC GLUCOSE 2021-06-12 23:14:00 [facility] POC GLUCOSE 2021-06-12 18:19:00 [facility] POC GLUCOSE 2021-06-12 14:37:00 [facility] POC GLUCOSE 2021-06-12 14:01:00 [facility] POC GLUCOSE 2021-06-12 03:03:[address] HEAD WO CONTRAST 2021-06-12 00:53:00 Holden Nagel [facility] Ram[facility]rez POC GLUCOSE 2021-06-11 18:08:00 Holden Nagel POC GLUCOSE 2021-06-11 13:39:00 Nagel, Holden [facility] [place] HEMODIALYSIS 2021-06-11 12:38:38 Delfino Akbar [facility] POC GLUCOSE 2021-06-11 02:01:00 Nagel, Holden [facility] [place] POC GLUCOSE 2021-06-10 22:15:00 Nagel, Holdentrip Whyte spital [place] POC GLUCOSE 2021-06-10 17:39:00 Nagel, Holden Whyte Ho spital [place] POC GLUCOSE 2021-06-10 16:05:00 Nagel, Holden [facility] [place] TISSUE CULTURE 2021-06-10 15:08:00 Pati, Juwan [facility] GRAM STAIN 2021-06-10 15:08:00 Pati, Juwancaron Whyte spital ANAEROBIC CULTURE 2021-06-10 15:04:00 Pati, [facility] FUNGUS CULTURE 2021-06-10 15:04:00 Pati, Juwan Whyte spital AEROBIC CULTURE 2021-06-10 15:04:00 Pati, Juwancaron Whyte spital AFB CULTURE 2021-06-10 15:04:00 Pati, Juwan Whyte spital GRAM STAIN 2021-06-10 15:04:00 Pati, Juwan Whyte spital AF[employer] STAIN 2021-06-10 15:04:00 Pati, Juwancaron Whyte spital [place] AN ELECTIVE 2021-06-10 14:26:00 Sofi Roach spital SUPRAGLOTTIC AIRWAY Marquita INCISION AND DRAINAGE, 2021-06-10 14:26:00 Pati, [facility] LOWER EXTREMITY HC COMPLETE BLD COUNT 2021-06-10 10:20:00 Pati, [facility] W/AUTO DIFF BASIC METABOLIC PANEL 2021-06-10 10:20:00 , [facility] PROTHROMBIN TIME WITH INR 2021-06-10 10:20:00 Pati [facility] PARTIAL THROMBOPLASTIN 2021-06-10 10:20:00 [facility] TIME (PTT) TYPE AND SCREEN 2021-06-10 10:20:00 Holden Nagel spital Ramí[place] ESTIMATED GFR 2021-06-10 10:20:00 Juwan You Ho spital POC GLUCOSE 2021-06-10 03:11:00 Nagel, Holden Whyte Ho spital [place] POC GLUCOSE 2021-06-10 01:30:00 Nagel, Holden Whyte Ho spital [place] POC GLUCOSE 2021-06-09 22:22:00 Nagel, Holden Whyte Ho spital [place] POC GLUCOSE 2021-06-09 13:55:00 Nagel, Holden Ferrara spital [place] HEMODIALYSIS 2021-06-09 13:20:01 [facility] VANCOMYCIN LEVEL, RANDOM 2021-06-09 11:46:00 [facility] POC GLUCOSE 2021-06-09 02:06:00 Holden Nagel spital [place] POC GLUCOSE 2021-06-08 22:23:00 Holden Nagel Ho spital [place] POC GLUCOSE 2021-06-08 17:53:00 Holden Nagel spital [place] HC COMPLETE BLD COUNT 2021-06-08 16:06:00 [facility] W/AUTO DIFF POC GLUCOSE 2021-06-08 13:56:00 Holden Nagel spital [place] URINE CULTURE 2021-06-08 03:56:00 Holden Nagel spital [place] URINALYSIS SCREEN AND 2021-06-08 03:32:00 [facility] MICROSCOPY, WITH REFLEX TO CULTURE POC GLUCOSE 2021-06-08 01:15:00 Holden Nagel spital [place] POC GLUCOSE 2021-06-07 22:07:00 Holden Nagel spital [place] POC GLUCOSE 2021-06-07 18:01:00 Holden Nagel spital [place] BASIC METABOLIC PANEL 2021-06-07 14:15:00 [facility] ESTIMATED GFR 2021-06-07 14:15:00 Nagel, Holden [facility] [place] POC GLUCOSE 2021-06-07 13:56:00 Nagel, Holden [facility] [place] POC GLUCOSE 2021-06-07 02:54:00 Nagel, Holden [facility] spital [place] CT LOWER EXTREMITY W 2021-06-07 01:22:59 [facility] CONTRAST RIGHT POC GLUCOSE 2021-06-06 23:50:00 Nagel, Holden [facility] [place] POC GLUCOSE 2021-06-06 17:31:00 Nagel, Holdentrip Whyte Ho spital [place] HEMODIALYSIS 2021-06-06 15:05:52 Delfino Akbar [facility] POC GLUCOSE 2021-06-06 14:03:00 Nagel, Holden Whyte Ho spital [place] HC COMPLETE BLD COUNT 2021-06-06 10:31:00 [facility] W/AUTO DIFF BASIC METABOLIC PANEL 2021-06-06 10:31:00 [facility] ESTIMATED GFR 2021-06-06 10:31:00 Nagel, Holden Whyte Ho spital [place] POC GLUCOSE 2021-06-06 10:14:00 Nagel, Holden [facility] [place] POC GLUCOSE 2021-06-06 06:26:00 Holden Nagel [facility] [place] POC GLUCOSE 2021-06-06 02:41:00 Holden Nagel [facility] [place] POC GLUCOSE 2021-06-05 19:51:00 Nagel, Holden [facility] [place] BASIC METABOLIC PANEL 2021-06-05 18:06:00 [facility] HC COMPLETE BLD COUNT 2021-06-05 18:06:00 [facility] W/AUTO DIFF ESTIMATED GFR 2021-06-05 18:06:00 NagelHolden rodriguez [facility] sp[facility] [place] POC GLUCOSE 2021-06-05 17:48:00 Holden Nagel Ho spital [place] ANAEROBIC CULTURE 2021-06-05 [facility]:10:00 [facility] 2021-06-05 16:59:00 Pati [facility] FUNGUS CULTURE 2021-06-05 16:59:00 Pati [facility] spital AEROBIC CULTURE 2021-06-05 16:59:00 Pati [facility] spital AFB CULTURE 2021-06-05 16:59:00 Pati [facility] spital FUNGUS SMEAR 2021-06-05 16:59:00 Pati [facility] spital AFB STAIN 2021-06-05 16:59:00 Pati [facility] spital [place] AN ELECTIVE 2021-06-05 16:52:08 Herrera [facility] SUPRAGLOTTIC AIRWAY TISSUE CULTURE 2021-06-05 16:50:00 Pati [facility] spital GRAM STAIN 2021-06-05 16:50:00 Pati [facility] spital DEBRIDEMENT, LOWER 2021-06-05 16:16:00 [facility] EXTREMITY POC GLUCOSE 2021-06-05 13:32:00 Holden Nagel [facility] TROPONIN T 2021-06-05 10:58:00 [facility] ospital ABO AND RH CONFIRMATION BY 2021-06-05 10:54:00 Brasher, [facility] PROTOCOL Vipin BASIC METABOLIC PANEL 2021-06-05 10:53:00 [facility] HC COMPLETE BLD COUNT 2021-06-05 10:53:00 [facility] W/AUTO DIFF ESTIMATED GFR 2021-06-05 10:53:00 [facility] TIME WITH INR 2021-06-05 10:52:00 [facility] PARTIAL THROMBOPLASTIN 2021-06-05 10:52:00 [facility] TIME (PTT) HCG QUALITATIVE, SERUM 2021-06-05 10:52:00 Myron Fernandes [facility] SCREEN POC GLUCOSE 2021-06-05 09:40:00 [facility] Vipin BLOOD CULTURE, AEROBIC & 2021-06-05 08:27:00 Rachel Brasher [facility] ANAEROBIC Vipin POC GLUCOSE 2021-06-05 07:42:00 Rachel Brasher Ho spital Vipin POC GLUCOSE 2021-06-05 06:57:00 Rachel Brasher Ho spital Vipin POC GLUCOSE 2021-06-05 06:10:00 Holdne Nagel Ho spital Ramírez BLOOD CULTURE, AEROBIC & 2021-06-05 04:31:00 Rachel Brasher [facility] ANAEROBIC Vipin POC GLUCOSE 2021-06-05 04:04:00 Rachel Brasher Ho spital Vipin POC GLUCOSE 2021-06-05 03:51:00 Rachel Brasher Ho spital [place] TYPE AND SCREEN 2021-06-05 03:40:00 Rachel Brasher Ho spital [place]in POC GLUCOSE 2021-06-05 03:05:00 Rachel Brasher Ho spital [place] POC GLUCOSE 2021-06-05 02:23:00 Rachel Brasher Ho spital Vipin COVID-19 QUALITATIVE 2021-06-05 02:08:00 [facility] HC COMPLETE BLD COUNT 2021-06-05 01:24:00 [facility] W/AUTO DIFF PROTHROMBIN TIME WITH INR 2021-06-05 01:24:00 [facility] PARTIAL THROMBOPLASTIN 2021-06-05 01:24:00 [facility] TIME (PTT) COMPREHENSIVE METABOLIC 2021-06-05 01:24:00 [facility] PANEL CREATINE KINASE, TOTAL 2021-06-05 01:24:00 [facility] (CPK) B NATRIURETIC PEPTIDE 2021-06-05 01:24:00 [facility] TROPONIN T 2021-06-05 01:24:00 [facility] ESTIMATED GFR 2021-06-05 01:24:00 Sivan monge [facility] ECG ED PRELIMINARY 2021-06-05 00:31:28 hollySivan [facility] INTERPRETATION ECG 12-LEAD 2021-06-05 00:19:17 Rachel Brasher Ho marilyn Reederenan POC GLUCOSE 2021-05-25 18:04:00 Awe, [facility] P[facility] 2021-05-25 14:00:00 Awe, [facility]ilu [facility] CBC HEMOGRAM 2021-05-25 10:12:00 Awe, Marilu Arvin [facility] BASIC METABOLIC PANEL 2021-05-25 10:12:00 Awe, Marilu Arvin [facility] ESTIMATED GFR 2021-05-25 10:12:00 Awe, [facility]ilu [facility] POC GLUCOSE 2021-05-25 02:49:00 Awe, Marilu Arvin [facility] POC GLUCOSE 2021-05-24 23:33:00 Awe, Marilu [facility] POC GLUCOSE 2021-05-24 17:56:00 Awe, Marilu Arvin [facility] POC GLUCOSE 2021-05-24 13:59:00 Awe, Marilu [facility] CBC HEMOGRAM 2021-05-24 10:12:00 Awe, Marilu [facility] BASIC METABOLIC PANEL 2021-05-24 10:12:00 Awe, Marilu Arvin [facility] ESTIMATED GFR 2021-05-24 10:12:00 Awe, Marilu [facility]vin [facility] POC GLUCOSE 2021-05-24 09:59:00 Awe, Marilu Arvin [facility] POC GLUCOSE 2021-05-24 02:26:00 Awe, Marilu [facility] POC GLUCOSE 2021-05-24 00:03:00 Awe, [facility]ilu [facility] TRANSFUSE RED BLOOD CELLS 2021-05-23 22:30:00 [facility] TRANSFUSE RED BLOOD CELLS 2021-05-23 21:30:00 [facility] POC GLUCOSE 2021-05-23 19:03:00 A[facility], [facility] AND S[facility]EN 2021-05-23 14:38:00 [facility] HC COMPLETE BLD COUNT 2021-05-23 14:38:00 [facility] W/AUTO DIFF PREPARE RBC 2021-05-23 14:38:00 [facility] ospital PREPARE PLATELET PHERESIS 2021-05-23 14:38:00 [facility] POC GLUCOSE 2021-05-23 14:35:00 Awe, [facility] HEMODIALYSIS 2021-05-23 13:42:30 [facility] CBC HEMOGRAM 2021-05-23 12:31:00 Awe, [facility] BASIC METABOLIC PANEL 2021-05-23 12:31:00 Awe, [facility] ESTIMATED GFR 2021-05-23 12:31:00 Awe, [facility] POC GLUCOSE 2021-05-23 11:22:00 Awe, [facility] POC GLUCOSE 2021-05-23 03:30:00 [facility] 2021-05-22 23:20:00 Awe, [facility] POC GLUCOSE 2021-05-22 17:20:00 Awe, [facility] POC GLUCOSE 2021-05-22 13:27:00 Awe, [facility] BASIC METABOLIC PANEL 2021-05-22 12:31:00 Nikki Haynes [facility] Rahel MAGNESIUM LEVEL 2021-05-22 12:31:00 Nikki Haynes ospigabe Mcginnis CBC HEMOGRAM 2021-05-22 12:31:00 Nikki Haynes ospital Rahel ESTIMATED GFR 2021-05-22 12:31:00 Nikki Haynes ospital Rahel POC GLUCOSE 2021-05-22 10:54:00 A[facility], [facility] 2021-05-22 07:28:00 Awe, [facility] POC GLUCOSE 2021-05-22 01:11:00 Awe, [facility] HEPATITIS B SURFACE 2021-05-21 21:08:00 [facility] ANTIBODY HEMODIALYSIS 2021-05-21 20:57:40 [facility] POC GLUCOSE 2021-05-21 17:57:00 Awe, [facility] POC GLUCOSE 2021-05-21 13:55:00 Awe, [facility] POC GLUCOSE 2021-05-21 10:41:00 Tom BarberZCOVID-19 ANTI-SPIKE IGG 2021-05-21 07:43:00 Clyde Olmstead [facility] ANTIBODY TITER Esa BASIC METABOLIC PANEL 2021-05-21 07:43:00 Nikki Haynes [facility] Rahel MAGNESIUM LEVEL 2021-05-21 07:43:00 Nikki Haynes ospigabe Mcginnis CBC HEMOGRAM 2021-05-21 07:43:00 Nikki Haynes ospital Rahel ZZCOVID-19 SEROLOGY 2021-05-21 07:43:00 [facility] Esa ESTIMATED GFR 2021-05-21 07:43:00 Andre Sofia Edmond LACTIC ACID LEVEL 2021-05-21 07:43:00 Leodan Stevenson [facility] POC GLUCOSE 2021-05-21 06:35:00 Tom Barber HC COMPLETE BLD COUNT 2021-05-21 02:49:00 [facility] W/AUTO DIFF BASIC METABOLIC PANEL 2021-05-21 02:49:00 [facility] LACTIC ACID LEVEL 2021-05-21 02:49:[address] [facility] OSMOLALITY, SERUM 2021-05-21 02:49:[address] [facility] BETA HYDROXYBUTYRATE 2021-05-21 02:49:00 [facility] PROCALCITONIN 2021-05-21 02:49:00 [facility] ESTIMATED GFR 2021-05-21 02:49:00 [facility] POC GLUCOSE 2021-05-21 02:34:00 Tom Barber spital HC COMPLETE BLD COUNT 2021-05-21 00:28:00 Char Viramontes [facility] W/AUTO DIFF POC GLUCOSE 2021-05-20 23:57:00 Tom Barber spital BASIC METABOLIC PANEL 2021-05-20 23:20:00 [facility] 2021-05-20 23:20:00 [facility] ESTIMATED GFR 2021-05-20 [...] TRANSFUSE RED BLOOD CELLS 2021-05-20 17:21:00 [facility] [place]LET 2021-05-20 15:52:[address] [facility] PHERESIS BASIC METABOLIC PANEL 2021-05-20 15:25:00 [facility] [place] [facility] GFR 2021-05-20 15:25:00 Andre [facility] [place] POC GLUCOSE 2021-05-20 14:48:00 Tom Barber spital HEMODIALYSIS 2021-05-20 11:31:20 [facility] POC GLUCOSE 2021-05-20 10:44:00 Tom Barber spital HEPATITIS B SURFACE 2021-05-20 08:49:00 [facility] ANTIGEN HEPATITIS B SURFACE AB, 2021-05-20 08:49:00 [facility] QUANTITATIVE HC COMPLETE BLD COUNT 2021-05-20 08:25:00 [facility] W/AUTO DIFF BASIC METABOLIC PANEL 2021-05-20 08:25:00 [facility] MAGNESIUM LEVEL 2021-05-20 08:25:00 [facility] ospital PHOSPHORUS LEVEL 2021-05-20 08:25:00 [facility] PROTHROMBIN TIME WITH INR 2021-05-20 08:25:00 Leodan Stevenson [facility] ESTIMATED GFR 2021-05-20 08:25:00 Juwan You spital HEMOGLOBIN A1C 2021-05-20 08:25:00 Nikki Haynes H ospital [place] POC GLUCOSE 2021-05-20 06:34:00 Tom Barber spital ARTERIAL BLOOD GAS 2021-05-20 04:36:00 [facility] 12[facility]AD 2021-05-20 03:42:28 [facility] PROTHROMBIN TIME WITH INR 2021-05-20 02:54:00 [facility] HC COMPLETE BLD COUNT 2021-05-20 02:54:00 [facility]FF BASIC METABOLIC PANEL 2021-05-20 02:54:00 [facility] LACTIC ACID LEVEL 2021-05-20 02:54:00 [facility] VENOUS BLOOD GAS 2021-05-20 02:54:00 [facility] ESTIMATED GFR 2021-05-20 02:54:00 [facility] POC GLUCOSE 2021-05-20 02:54:00 Tom Barber spital XR CHEST 1 VW PORTABLE 2021-05-20 02:51:13 [facility] [place] [facility] 2021-05-20 01:30:15 Juwan You spital TRANSFUSE RED BLOOD CELLS 2021-05-20 00:59:00 Juwan You [facility] [place] AN ELECTIVE 2021-05-20 00:53:01 Sukhjinder Medina spital SUPRAGLOTTIC AIRWAY [place] INCISION AND DRAINAGE, 2021-05-20 00:45:00 Juwan You [facility] HEMATOMA HC COMPLETE BLD COUNT 2021-05-19 22:13:00 [facility] W/AUTO DIFF BASIC METABOLIC PANEL 2021-05-19 22:13:00 [facility] PROTHROMBIN TIME WITH INR 2021-05-19 22:13:00 [facility] PARTIAL THROMBOPLASTIN 2021-05-19 22:13:00 [facility] TIME (PTT) MAGNESIUM LEVEL 2021-05-19 22:13:00 [facility] ospital ESTIMATED GFR 2021-05-19 22:13:00 Juwan You spital POC GLUCOSE 2021-05-19 22:00:00 Errol Luther [facility] SURGICAL PATHOLOGY REQUEST 2021-05-19 21:47:00 Errol Luther [facility] POC GLUCOSE 2021-05-19 21:17:00 Juwan You spital ACTIVATED CLOTTING TIME 2021-05-19 19:12:00 [facility] [place] ELECTIVE 2021-05-19 18:11:04 Sukhjinder Medina spital SUPRAGLOTTIC [employer] [place] LOWER EXTREMITY 2021-05-19 17:59:00 Juwan You spital ANGIOGRAM,POSSIBLE ANGIOPLASTY,POSSIBLE STENT XR CHEST 1 VW PORTABLE 2021-05-19 15:47:37 Juwan You [facility] ESTIMATED GFR 2021-05-19 14:34:00 Juwan You spital POC PANEL 2021-05-19 14:34:00 Juwan You spital TYPE AND SCREEN 2021-05-19 14:05:00 Isabell Dickerson marilyn Romero PREPARE RBC 2021-05-19 14:05:00 Char Viramontes [facility] ospital PREPARE FRESH FROZEN 2021-05-19 14:05:00 Viramontes [facility] PLASMA PREPARE PLATELET PHERESIS 2021-05-19 14:05:00 [facility] MET[facility]OL[facility]EL 2021-05-19 14:00[facility] PROTHROMBIN TIME WITH INR 2021-05-19 14:00:00 Jayla [facility] Larry Romero HC COMPLETE BLD COUNT 2021-05-19 14:00:00 [facility]FF Larry Romero ABO AND RH CONFIRMATION BY 2021-05-19 14:00:00 Pati [facility] PROTOCOL ESTIMATED GFR 2021-05-19 14:00:00 Isabell Dickerson COVID-19 QUALITATIVE 2021-05-19 12:40:00 Pati, Juwan [facility] RT-PCR MEDICAL RELEASE/CLEARANCE 2021-05-13 06:01:00 Doctor Unassigned, [facility] FORMS [facility] US DUPLEX ARTERIAL LOWER 2021-05-12 15:21:31 Juwan You [facility] EXTREMITY BILATERAL Emergency department visit 2013-04-15 05:00:00 [facility] for the evaluation and management of a patient, which requires these 3 kamara components within the constraints imposed by the urgency of the patient's clinical condition and/or mental status: A comprehensive history; A comprehensi Injection or Infusion of 2013-04-15 05:00:00 Mem orial [place] Other Therapeutic or Prophylactic Substance Intravenous infusion, 2013-04-15 05:00:00 Memori al Vin hydration; each additional hour (List separately in addition to code for primary procedure) Therapeutic, prophylactic, 2013-04-15 05:00:00 [facility] [place] or diagnostic injection (specify substance or drug); each additional sequential intravenous push of a new substance/drug (List separately in addition to code for primary procedure) Therapeutic, prophylactic, 2013-04-15 05:00:00 [facility] Vin or diagnostic injection (specify substance or drug); intravenous push, single or initial substance/drug [facility] EGD [facility] (esophagogastroduodenoscop y) gastric outlet reduction section [facility] Jake n Tubal ligation [facility] 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 Plan of Care Planned Activity Planned Date Details Comments Source Future Scheduled 2022-12-19 HEPATITIS B VACCINES Met [facility] Test 02:39:18 (1 of 3 - 3-dose series) [code = HEPATITIS B VACCINES (1 of 3 - 3-dose series)] Future Scheduled 2022-12-19 COVID-19 VACCINE (#1) [facility] Test 02:39:18 [code = COVID-19 VACCINE (#1)] Future Scheduled 2022-12-19 Pneumococcal Vaccine: [facility] Test 02:39:18 Pediatrics (0 to 5 Years) and At-Risk Patients (6 to 64 Years) (1 - PCV) [code = Pneumococcal Vaccine: Pediatrics (0 to 5 Years) and At-Risk Patients (6 to 64 Years) (1 - PCV)] Future Scheduled 2022-12-19 Hepatitis C screening [facility] Test 02:39:18 (procedure) [code = [id number]] Future Scheduled 2022-12-19 Screening for [facility] Test 02:39:18 malignant neoplasm of cervix (procedure) [code = 545717927] Future Scheduled 2022-12-19 BREAST CANCER [facility] Test 02:39:18 SCREENING [code = BREAST CANCER SCREENING] Future Scheduled 2022-12-19 INFLUENZA VACCINE Method [facility] Test 02:39:18 [code = INFLUENZA VACCINE] Future Scheduled 2022-12-19 HEPATITIS B VACCINES [facility] Test 02:39:18 (1 of 3 - 3-dose series) [code = HEPATITIS B VACCINES (1 of 3 - 3-dose series)] Future Scheduled 2022-12-19 COVID-19 VACCINE (#1) [facility] Test 02:39:18 [code = COVID-19 VACCINE (#1)] Future Scheduled 2022-12-19 Pneumococcal Vaccine: [facility] Test 02:39:18 Pediatrics (0 to 5 Years) and At-Risk Patients (6 to 64 Years) (1 - PCV) [code = Pneumococcal Vaccine: Pediatrics (0 to 5 Years) and At-Risk Patients (6 to 64 Years) (1 - PCV)] Future Scheduled 2022-12-19 Hepatitis C screening [facility] Test 02:39:18 (procedure) [code = [id number]] Future Scheduled 2022-12-19 Screening for [facility] Test 02:39:18 malignant neoplasm of cervix (procedure) [code = 290758752] Future Scheduled 2022-12-19 BREAST CANCER [facility] Test 02:39:18 SCREENING [code = BREAST CANCER SCREENING] Future Scheduled 2022-12-19 INFLUENZA VACCINE Method [facility] Test 02:39:18 [code = INFLUENZA VACCINE] Future Scheduled 2022-12-19 HEPATITIS B VACCINES [facility] Test 02:39:18 (1 of 3 - 3-dose series) [code = HEPATITIS B VACCINES (1 of 3 - 3-dose series)] Future Scheduled 2022-12-19 COVID-19 VACCINE (#1) [facility] Test 02:39:18 [code = COVID-19 VACCINE (#1)] Future Scheduled 2022-12-19 Pneumococcal Vaccine: [facility] Test 02:39:18 Pediatrics (0 to 5 Years) and At-Risk Patients (6 to 64 Years) (1 - PCV) [code = Pneumococcal Vaccine: Pediatrics (0 to 5 Years) and At-Risk Patients (6 to 64 Years) (1 - PCV)] Future Scheduled 2022-12-19 Hepatitis C screening [facility] Test 02:39:18 (procedure) [code = 402108501] Future Scheduled 2022-12-19 Screening for [facility] Test 02:39:18 malignant neoplasm of cervix (procedure) [code = 206939808] Future Scheduled 2022-12-19 BREAST CANCER [facility] Test 02:39:18 SCREENING [code = BREAST CANCER SCREENING] Future Scheduled 2022-12-19 INFLUENZA VACCINE Method [facility] Test 02:39:18 [code = INFLUENZA VACCINE] Future Scheduled 2022-12-19 HEPATITIS B VACCINES [facility] Test 02:39:18 (1 of 3 - 3-dose series) [code = HEPATITIS B VACCINES (1 of 3 - 3-dose series)] Future Scheduled 2022-12-19 COVID-19 VACCINE (#1) [facility] Test 02:39:18 [code = COVID-19 VACCINE (#1)] Future Scheduled 2022-12-19 Pneumococcal Vaccine: [facility] Test 02:39:18 Pediatrics (0 to 5 Years) and At-Risk Patients (6 to 64 Years) (1 - PCV) [code = Pneumococcal Vaccine: Pediatrics (0 to 5 Years) and At-Risk Patients (6 to 64 Years) (1 - PCV)] Future Scheduled 2022-12-19 Hepatitis C screening [facility] Test 02:39:18 (procedure) [code = 926413451] Future Scheduled 2022-12-19 Screening for [facility] Test 02:39:18 malignant neoplasm of cervix (procedure) [code = 335155015] Future Scheduled 2022-12-19 BREAST CANCER [facility] Test 02:39:18 SCREENING [code = BREAST CANCER SCREENING] Future Scheduled 2022-12-19 INFLUENZA VACCINE Method [facility] Test 02:39:18 [code = INFLUENZA VACCINE] Future Scheduled 2022-12-19 HEPATITIS B VACCINES Met [facility] Test 02:39:18 (1 of 3 - 3-dose series) [code = HEPATITIS B VACCINES (1 of 3 - 3-dose series)] Future Scheduled 2022-12-19 COVID-19 VACCINE (#1) [facility] Test 02:39:18 [code = COVID-19 VACCINE (#1)] Future Scheduled 2022-12-19 Pneumococcal Vaccine: [facility] Test 02:39:18 Pediatrics (0 to 5 Years) and At-Risk Patients (6 to 64 Years) (1 - PCV) [code = Pneumococcal Vaccine: Pediatrics (0 to 5 Years) and At-Risk Patients (6 to 64 Years) (1 - PCV)] Future Scheduled 2022-12-19 Hepatitis C screening [facility] Test 02:39:18 (procedure) [code = 143031778] Future Scheduled 2022-12-19 Screening for [facility] Test 02:39:18 malignant neoplasm of cervix (procedure) [code = 366270098] Future Scheduled 2022-12-19 BREAST CANCER [facility] Test 02:39:18 SCREENING [code = BREAST CANCER SCREENING] Future Scheduled 2022-12-19 INFLUENZA VACCINE Method [facility] Test 02:39:18 [code = INFLUENZA VACCINE] Future Scheduled 2022-12-10 HEPATITIS B VACCINES [facility] Test 14:28:00 (1 of 3 - 3-dose series) [code = HEPATITIS B VACCINES (1 of 3 - 3-dose series)] Future Scheduled 2022-12-10 COVID-19 VACCINE (#1) [facility] Test 14:28:00 [code = COVID-19 VACCINE (#1)] Future Scheduled 2022-12-10 Pneumococcal Vaccine: [facility] Test 14:28:00 Pediatrics (0 to 5 Years) and At-Risk Patients (6 to 64 Years) (1 - PCV) [code = Pneumococcal Vaccine: Pediatrics (0 to 5 Years) and At-Risk Patients (6 to 64 Years) (1 - PCV)] Future Scheduled 2022-12-10 Hepatitis C screening [facility] Test 14:28:00 (procedure) [code = 247129070] Future Scheduled 2022-12-10 Screening for [facility] Test 14:28:00 malignant neoplasm of cervix (procedure) [code = 927796744] Future Scheduled 2022-12-10 BREAST CANCER [facility] Test 14:28:00 SCREENING [code = BREAST CANCER SCREENING] Future Scheduled 2022-12-10 INFLUENZA VACCINE Method [facility] Test 14:28:00 [code = INFLUENZA VACCINE] Future Scheduled 2022-12-04 HEPATITIS B VACCINES [facility] Test 23:23:00 (1 of 3 - 3-dose series) [code = HEPATITIS B VACCINES (1 of 3 - 3-dose series)] Future Scheduled 2022-12-04 COVID-19 VACCINE (#1) [facility] Test 23:23:00 [code = COVID-19 VACCINE (#1)] Future Scheduled 2022-12-04 Pneumococcal Vaccine: [facility] Test 23:23:00 Pediatrics (0 to 5 Years) and At-Risk Patients (6 to 64 Years) (1 - PCV) [code = Pneumococcal Vaccine: Pediatrics (0 to 5 Years) and At-Risk Patients (6 to 64 Years) (1 - PCV)] Future Scheduled 2022-12-04 Hepatitis C screening [facility] Test 23:23:00 (procedure) [code = [id number]] Future Scheduled 2022-12-04 Screening for [facility] Test 23:23:00 malignant neoplasm of cervix (procedure) [code = 652742880] Future Scheduled 2022-12-04 BREAST CANCER [facility] Test 23:23:00 SCREENING [code = BREAST CANCER SCREENING] Future Scheduled 2022-12-04 INFLUENZA VACCINE Method [facility] Test 23:23:00 [code = INFLUENZA VACCINE] Future Scheduled 2022-12-04 HEPATITIS B VACCINES [facility] Test 23:23:00 (1 of 3 - 3-dose series) [code = HEPATITIS B VACCINES (1 of 3 - 3-dose series)] Future Scheduled 2022-12-04 COVID-19 VACCINE (#1) [facility] Test 23:23:00 [code = COVID-19 VACCINE (#1)] Future Scheduled 2022-12-04 Pneumococcal Vaccine: [facility] Test 23:23:00 Pediatrics (0 to 5 Years) and At-Risk Patients (6 to 64 Years) (1 - PCV) [code = Pneumococcal Vaccine: Pediatrics (0 to 5 Years) and At-Risk Patients (6 to 64 Years) (1 - PCV)] Future Scheduled 2022-12-04 Hepatitis C screening [facility] Test 23:23:00 (procedure) [code = 246952487] Future Scheduled 2022-12-04 Screening for [facility] Test 23:23:00 malignant neoplasm of cervix (procedure) [code = 863546510] Future Scheduled 2022-12-04 BREAST CANCER [facility] Test 23:23:00 SCREENING [code = BREAST CANCER SCREENING] Future Scheduled 2022-12-04 INFLUENZA VACCINE Method [facility] Test 23:23:00 [code = INFLUENZA VACCINE] Future Scheduled 2022-11-12 HEPATITIS B VACCINES [facility] Test 20:50:47 (1 of 3 - 3-dose series) [code = HEPATITIS B VACCINES (1 of 3 - 3-dose series)] Future Scheduled 2022-11-12 COVID-19 VACCINE (#1) [facility] Test 20:50:47 [code = COVID-19 VACCINE (#1)] Future Scheduled 2022-11-12 Pneumococcal Vaccine: [facility] Test 20:50:47 Pediatrics (0 to 5 Years) and At-Risk Patients (6 to 64 Years) (1 - PCV) [code = Pneumococcal Vaccine: Pediatrics (0 to 5 Years) and At-Risk Patients (6 to 64 Years) (1 - PCV)] Future Scheduled 2022-11-12 Hepatitis C screening [facility] Test 20:50:47 (procedure) [code = 578643382] Future Scheduled 2022-11-12 Screening for [facility] Test 20:50:47 malignant neoplasm of cervix (procedure) [code = 213081598] Future Scheduled 2022-11-12 BREAST CANCER [facility] Test 20:50:47 SCREENING [code = BREAST CANCER SCREENING] Future Scheduled 2022-11-12 INFLUENZA VACCINE Method [facility] Test 20:50:47 [code = INFLUENZA VACCINE] Future Scheduled 2022-11-12 HEPATITIS B VACCINES [facility] Test 20:50:47 (1 of 3 - 3-dose series) [code = HEPATITIS B VACCINES (1 of 3 - 3-dose series)] Future Scheduled 2022-11-12 COVID-19 VACCINE (#1) [facility] Test 20:50:47 [code = COVID-19 VACCINE (#1)] Future Scheduled 2022-11-12 Pneumococcal Vaccine: [facility] Test 20:50:47 Pediatrics (0 to 5 Years) and At-Risk Patients (6 to 64 Years) (1 - PCV) [code = Pneumococcal Vaccine: Pediatrics (0 to 5 Years) and At-Risk Patients (6 to 64 Years) (1 - PCV)] Future Scheduled 2022-11-12 Hepatitis C screening [facility] Test 20:50:47 (procedure) [code = 665168241] Future Scheduled 2022-11-12 Screening for [facility] Test 20:50:47 malignant neoplasm of cervix (procedure) [code = 215333275] Future Scheduled 2022-11-12 BREAST CANCER [facility] Test 20:50:47 SCREENING [code = BREAST CANCER SCREENING] Future Scheduled 2022-11-12 [facility]INE [facility] Test 20:50:47 [code = INFLUENZA VACCINE] Future Scheduled 2022-11-12 HEPATITIS B VACCINES Met [facility] Test 20:50:47 (1 of 3 - 3-dose series) [code = HEPATITIS B VACCINES (1 of 3 - 3-dose series)] Future Scheduled 2022-11-12 COVID-19 VACCINE (#1) [facility] Test 20:50:47 [code = COVID-19 VACCINE (#1)] Future Scheduled 2022-11-12 Pneumococcal Vaccine: [facility] Test 20:50:47 Pediatrics (0 to 5 Years) and At-Risk Patients (6 to 64 Years) (1 - PCV) [code = Pneumococcal Vaccine: Pediatrics (0 to 5 Years) and At-Risk Patients (6 to 64 Years) (1 - PCV)] Future Scheduled 2022-11-12 Hepatitis C screening [facility] Test 20:50:47 (procedure) [code = 156255774] Future Scheduled 2022-11-12 Screening for [facility] Test 20:50:47 malignant neoplasm of cervix (procedure) [code = 405057377] Future Scheduled 2022-11-12 BREAST CANCER [facility] Test 20:50:47 SCREENING [code = BREAST CANCER SCREENING] Future Scheduled 2022-11-12 [facility]ACCINE [facility] Test 20:50:47 [code = INFLUENZA VACCINE] Future Scheduled 2022-10-23 HEPATITIS B VACCINES Met [facility] Test 05:16:19 (1 of 3 - 3-dose series) [code = HEPATITIS B VACCINES (1 of 3 - 3-dose series)] Future Scheduled 2022-10-23 COVID-19 VACCINE (#1) [facility] Test 05:16:19 [code = COVID-19 VACCINE (#1)] Future Scheduled 2022-10-23 Pneumococcal Vaccine: [facility] Test 05:16:19 Pediatrics (0 to 5 Years) and At-Risk Patients (6 to 64 Years) (1 - PCV) [code = Pneumococcal Vaccine: Pediatrics (0 to 5 Years) and At-Risk Patients (6 to 64 Years) (1 - PCV)] Future Scheduled 2022-10-23 Hepatitis C screening [facility] Test 05:16:19 (procedure) [code = 612764115] Future Scheduled 2022-10-23 Screening for [facility] Test 05:16:19 malignant neoplasm of cervix (procedure) [code = 396732508] Future Scheduled 2022-10-23 BREAST CANCER [facility] Test 05:16:19 SCREENING [code = BREAST CANCER SCREENING] Future Scheduled 2022-10-23 INFLUENZA VACCINE Method [facility] Test 05:16:19 [code = INFLUENZA VACCINE] Future Scheduled 2022-06-11 HEPATITIS B VACCINES [facility] Test 02:09:30 (1 of 3 - 3-dose series) [code = HEPATITIS B VACCINES (1 of 3 - 3-dose series)] Future Scheduled 2022-06-11 COVID-19 VACCINE (#1) [facility] Test 02:09:30 [code = COVID-19 VACCINE (#1)] Future Scheduled 2022-06-11 Pneumococcal Vaccine: [facility] Test 02:09:30 Pediatrics (0 to 5 Years) and At-Risk Patients (6 to 64 Years) (1 - PCV) [code = Pneumococcal Vaccine: Pediatrics (0 to 5 Years) and At-Risk Patients (6 to 64 Years) (1 - PCV)] Future Scheduled 2022-06-11 Hepatitis C screening [facility] Test 02:09:30 (procedure) [code = 568041261] Future Scheduled 2022-06-11 Screening for [facility] Test 02:09:30 malignant neoplasm of cervix (procedure) [code = 546380914] Future Scheduled 2022-06-11 INFLUENZA VACCINE Method [facility] Test 02:09:30 [code = INFLUENZA VACCINE] Future Scheduled 2022-06-11 HEPATITIS B VACCINES [facility] Test 02:09:30 (1 of 3 - 3-dose series) [code = HEPATITIS B VACCINES (1 of 3 - 3-dose series)] Future Scheduled 2022-06-11 COVID-19 VACCINE (#1) [facility] Test 02:09:30 [code = COVID-19 VACCINE (#1)] Future Scheduled 2022-06-11 Pneumococcal Vaccine: [facility] Test 02:09:30 Pediatrics (0 to 5 Years) and At-Risk Patients (6 to 64 Years) (1 - PCV) [code = Pneumococcal Vaccine: Pediatrics (0 to 5 Years) and At-Risk Patients (6 to 64 Years) (1 - PCV)] Future Scheduled 2022-06-11 Hepatitis C screening [facility] Test 02:09:30 (procedure) [code = 718458544] Future Scheduled 2022-06-11 Screening for [facility] Test 02:09:30 malignant neoplasm of cervix (procedure) [code = 524196931] Future Scheduled 2022-06-11 INFLUENZA VACCINE Method [facility] Test 02:09:30 [code = INFLUENZA VACCINE] Future Scheduled 2022-06-11 HEPATITIS B VACCINES Met [facility] Test 02:09:30 (1 of 3 - 3-dose series) [code = HEPATITIS B VACCINES (1 of 3 - 3-dose series)] Future Scheduled 2022-06-11 COVID-19 VACCINE (#1) [facility] Test 02:09:30 [code = COVID-19 VACCINE (#1)] Future Scheduled 2022-06-11 Pneumococcal Vaccine: [facility] Test 02:09:30 Pediatrics (0 to 5 Years) and At-Risk Patients (6 to 64 Years) (1 - PCV) [code = Pneumococcal Vaccine: Pediatrics (0 to 5 Years) and At-Risk Patients (6 to 64 Years) (1 - PCV)] Future Scheduled 2022-06-11 Hepatitis C screening [facility] Test 02:09:30 (procedure) [code = 968281692] Future Scheduled 2022-06-11 Screening for [facility] Test 02:09:30 malignant neoplasm of cervix (procedure) [code = 264632236] Future Scheduled 2022-06-11 INFLUENZA VACCINE Method [facility] Test 02:09:30 [code = INFLUENZA VACCINE] Future Scheduled 2022-06-11 HEPATITIS B VACCINES Met [facility] Test 02:09:30 (1 of 3 - 3-dose series) [code = HEPATITIS B VACCINES (1 of 3 - 3-dose series)] Future Scheduled 2022-06-11 COVID-19 VACCINE (#1) [facility] Test 02:09:30 [code = COVID-19 VACCINE (#1)] Future Scheduled 2022-06-11 Pneumococcal Vaccine: [facility] Test 02:09:30 Pediatrics (0 to 5 Years) and At-Risk Patients (6 to 64 Years) (1 - PCV) [code = Pneumococcal Vaccine: Pediatrics (0 to 5 Years) and At-Risk Patients (6 to 64 Years) (1 - PCV)] Future Scheduled 2022-06-11 Hepatitis C screening [facility] Test 02:09:30 (procedure) [code = 611785835] Future Scheduled 2022-06-11 Screening for [facility] Test 02:09:30 malignant neoplasm of cervix (procedure) [code = 397825198] Future Scheduled 2022-06-11 INFLUENZA VACCINE Method [facility] Test 02:09:30 [code = INFLUENZA VACCINE] Future Scheduled 2022-06-11 HEPATITIS B VACCINES [facility] Test 02:09:30 (1 of 3 - 3-dose series) [code = HEPATITIS B VACCINES (1 of 3 - 3-dose series)] Future Scheduled 2022-06-11 COVID-19 VACCINE (#1) [facility] Test 02:09:30 [code = COVID-19 VACCINE (#1)] Future Scheduled 2022-06-11 Pneumococcal Vaccine: [facility] Test 02:09:30 Pediatrics (0 to 5 Years) and At-Risk Patients (6 to 64 Years) (1 - PCV) [code = Pneumococcal Vaccine: Pediatrics (0 to 5 Years) and At-Risk Patients (6 to 64 Years) (1 - PCV)] Future Scheduled 2022-06-11 Hepatitis C screening [facility] Test 02:09:30 (procedure) [code = 107056406] Future Scheduled 2022-06-11 Screening for [facility] Test 02:09:30 malignant neoplasm of cervix (procedure) [code = 806744488] Future Scheduled 2022-06-11 INFLUENZA VACCINE Method [facility] Test 02:09:30 [code = INFLUENZA VACCINE] Future Scheduled 2022-06-11 HEPATITIS B VACCINES Met [facility] Test 02:09:30 (1 of 3 - 3-dose series) [code = HEPATITIS B VACCINES (1 of 3 - 3-dose series)] Future Scheduled 2022-06-11 COVID-19 VACCINE (#1) [facility] Test 02:09:30 [code = COVID-19 VACCINE (#1)] Future Scheduled 2022-06-11 Pneumococcal Vaccine: [facility] Test 02:09:30 Pediatrics (0 to 5 Years) and At-Risk Patients (6 to 64 Years) (1 - PCV) [code = Pneumococcal Vaccine: Pediatrics (0 to 5 Years) and At-Risk Patients (6 to 64 Years) (1 - PCV)] Future Scheduled 2022-06-11 Hepatitis C screening [facility] Test 02:09:30 (procedure) [code = 237769277] Future Scheduled 2022-06-11 Screening for [facility] Test 02:09:30 malignant neoplasm of cervix (procedure) [code = 818004102] Future Scheduled 2022-06-11 INFLUENZA VACCINE Method [facility] Test 02:09:30 [code = INFLUENZA VACCINE] Future Scheduled 2022-06-11 HEPATITIS B VACCINES Met [facility] Test 02:09:30 (1 of 3 - 3-dose series) [code = HEPATITIS B VACCINES (1 of 3 - 3-dose series)] Future Scheduled 2022-06-11 COVID-19 VACCINE (#1) [facility] Test 02:09:30 [code = COVID-19 VACCINE (#1)] Future Scheduled 2022-06-11 Pneumococcal Vaccine: [facility] Test 02:09:30 Pediatrics (0 to 5 Years) and At-Risk Patients (6 to 64 Years) (1 - PCV) [code = Pneumococcal Vaccine: Pediatrics (0 to 5 Years) and At-Risk Patients (6 to 64 Years) (1 - PCV)] Future Scheduled 2022-06-11 Hepatitis C screening [facility] Test 02:09:30 (procedure) [code = 842877436] Future Scheduled 2022-06-11 Screening for [facility] Test 02:09:30 malignant neoplasm of cervix (procedure) [code = 392782034] Future Scheduled 2022-06-11 INFLUENZA VACCINE Method [facility] Test 02:09:30 [code = INFLUENZA VACCINE] Future Scheduled 2022-06-01 HEPATITIS B VACCINES Met [facility] Test 16:17:59 (1 of 3 - 3-dose series) [code = HEPATITIS B VACCINES (1 of 3 - 3-dose series)] Future Scheduled 2022-06-01 COVID-19 VACCINE (#1) [facility] Test 16:17:59 [code = COVID-19 VACCINE (#1)] Future Scheduled 2022-06-01 Pneumococcal Vaccine: [facility] Test 16:17:59 Pediatrics (0 to 5 Years) and At-Risk Patients (6 to 64 Years) (1 - PCV) [code = Pneumococcal Vaccine: Pediatrics (0 to 5 Years) and At-Risk Patients (6 to 64 Years) (1 - PCV)] Future Scheduled 2022-06-01 Hepatitis C screening [facility] Test 16:17:59 (procedure) [code = 740876389] Future Scheduled 2022-06-01 Screening for [facility] Test 16:17:59 malignant neoplasm of cervix (procedure) [code = 567575749] Future Scheduled 2022-06-01 INFLUENZA VACCINE Method [facility] Test 16:17:59 [code = INFLUENZA VACCINE] Future Scheduled 2022-04-25 HEPATITIS B VACCINES Met [facility] Test 12:43:16 (1 of 3 - 3-dose series) [code = HEPATITIS B VACCINES (1 of 3 - 3-dose series)] Future Scheduled 2022-04-25 COVID-19 VACCINE (#1) [facility] Test 12:43:16 [code = COVID-19 VACCINE (#1)] Future Scheduled 2022-04-25 Pneumococcal Vaccine: [facility] Test 12:43:16 Pediatrics (0 to 5 Years) and At-Risk Patients (6 to 64 Years) (1 - PCV) [code = Pneumococcal Vaccine: Pediatrics (0 to 5 Years) and At-Risk Patients (6 to 64 Years) (1 - PCV)] Future Scheduled 2022-04-25 Hepatitis C screening [facility] Test 12:43:16 (procedure) [code = 601119862] Future Scheduled 2022-04-25 Screening for [facility] Test 12:43:16 malignant neoplasm of cervix (procedure) [code = 150509438] Future Scheduled 2022-04-25 INFLUENZA VACCINE Method [facility] Test 12:43:16 [code = INFLUENZA VACCINE] Future Scheduled 2022-02-27 HEPATITIS B VACCINES Met [facility] Test 05:24:42 (1 of 3 - 3-dose series) [code = HEPATITIS B VACCINES (1 of 3 - 3-dose series)] Future Scheduled 2022-02-27 COVID-19 VACCINE (#1) [facility] Test 05:24:42 [code = COVID-19 VACCINE (#1)] Future Scheduled 2022-02-27 Pneumococcal Vaccine: [facility] Test 05:24:42 Pediatrics (0 to 5 Years) and At-Risk Patients (6 to 64 Years) (1 - PCV) [code = Pneumococcal Vaccine: Pediatrics (0 to 5 Years) and At-Risk Patients (6 to 64 Years) (1 - PCV)] Future Scheduled 2022-02-27 Hepatitis C screening [facility] Test 05:24:42 (procedure) [code = 619119421] Future Scheduled 2022-02-27 Screening for [facility] Test 05:24:42 malignant neoplasm of cervix (procedure) [code = 263002013] Future Scheduled 2022-02-27 INFLUENZA VACCINE Method [facility] Test 05:24:42 [code = INFLUENZA VACCINE] Future Scheduled 2022-02-27 HEPATITIS B VACCINES Met [facility] Test 05:24:42 (1 of 3 - 3-dose series) [code = HEPATITIS B VACCINES (1 of 3 - 3-dose series)] Future Scheduled 2022-02-27 COVID-19 VACCINE (#1) [facility] Test 05:24:42 [code = COVID-19 VACCINE (#1)] Future Scheduled 2022-02-27 Pneumococcal Vaccine: [facility] Test 05:24:42 Pediatrics (0 to 5 Years) and At-Risk Patients (6 to 64 Years) (1 - PCV) [code = Pneumococcal Vaccine: Pediatrics (0 to 5 Years) and At-Risk Patients (6 to 64 Years) (1 - PCV)] Future Scheduled 2022-02-27 Hepatitis C screening [facility] Test 05:24:42 (procedure) [code = 526529664] Future Scheduled 2022-02-27 Screening for [facility] Test 05:24:42 malignant neoplasm of cervix (procedure) [code = 844363831] Future Scheduled 2022-02-27 INFLUENZA VACCINE Method [facility] Test 05:24:42 [code = INFLUENZA VACCINE] Future Scheduled 2022-02-27 HEPATITIS B VACCINES Met [facility] Test 05:24:42 (1 of 3 - 3-dose series) [code = HEPATITIS B VACCINES (1 of 3 - 3-dose series)] Future Scheduled 2022-02-27 COVID-19 VACCINE (#1) [facility] Test 05:24:42 [code = COVID-19 VACCINE (#1)] Future Scheduled 2022-02-27 Pneumococcal Vaccine: [facility] Test 05:24:42 Pediatrics (0 to 5 Years) and At-Risk Patients (6 to 64 Years) (1 - PCV) [code = Pneumococcal Vaccine: Pediatrics (0 to 5 Years) and At-Risk Patients (6 to 64 Years) (1 - PCV)] Future Scheduled 2022-02-27 Hepatitis C screening [facility] Test 05:24:42 (procedure) [code = 985210448] Future Scheduled 2022-02-27 Screening for [facility] Test 05:24:42 malignant neoplasm of cervix (procedure) [code = 471215558] Future Scheduled 2022-02-27 INFLUENZA VACCINE Method [facility] Test 05:24:42 [code = INFLUENZA VACCINE] Future Scheduled 2022-02-27 HEPATITIS B VACCINES Met [facility] Test 05:24:42 (1 of 3 - 3-dose series) [code = HEPATITIS B VACCINES (1 of 3 - 3-dose series)] Future Scheduled 2022-02-27 COVID-19 VACCINE (#1) [facility] Test 05:24:42 [code = COVID-19 VACCINE (#1)] Future Scheduled 2022-02-27 Pneumococcal Vaccine: [facility] Test 05:24:42 Pediatrics (0 to 5 Years) and At-Risk Patients (6 to 64 Years) (1 - PCV) [code = Pneumococcal Vaccine: Pediatrics (0 to 5 Years) and At-Risk Patients (6 to 64 Years) (1 - PCV)] Future Scheduled 2022-02-27 Hepatitis C screening [facility] Test 05:24:42 (procedure) [code = 462918639] Future Scheduled 2022-02-27 Screening for [facility] Test 05:24:42 malignant neoplasm of cervix (procedure) [code = 815971801] Future Scheduled 2022-02-27 INFLUENZA VACCINE Method [facility] Test 05:24:42 [code = INFLUENZA VACCINE] Future Scheduled 2022-02-27 HEPATITIS B VACCINES Met [facility] Test 05:24:42 (1 of 3 - 3-dose series) [code = HEPATITIS B VACCINES (1 of 3 - 3-dose series)] Future Scheduled 2022-02-27 COVID-19 VACCINE (#1) [facility] Test 05:24:42 [code = COVID-19 VACCINE (#1)] Future Scheduled 2022-02-27 Pneumococcal Vaccine: [facility] Test 05:24:42 Pediatrics (0 to 5 Years) and At-Risk Patients (6 to 64 Years) (1 - PCV) [code = Pneumococcal Vaccine: Pediatrics (0 to 5 Years) and At-Risk Patients (6 to 64 Years) (1 - PCV)] Future Scheduled 2022-02-27 Hepatitis C screening [facility] Test 05:24:42 (procedure) [code = 213763267] Future Scheduled 2022-02-27 Screening for [facility] Test 05:24:42 malignant neoplasm of cervix (procedure) [code = 397964095] Future Scheduled 2022-02-27 INFLUENZA VACCINE Method [facility] Test 05:24:42 [code = INFLUENZA VACCINE] Future Scheduled 2022-02-27 HEPATITIS B VACCINES Met [facility] Test 05:24:42 (1 of 3 - 3-dose series) [code = HEPATITIS B VACCINES (1 of 3 - 3-dose series)] Future Scheduled 2022-02-27 COVID-19 VACCINE (#1) [facility] Test 05:24:42 [code = COVID-19 VACCINE (#1)] Future Scheduled 2022-02-27 Pneumococcal Vaccine: [facility] Test 05:24:42 Pediatrics (0 to 5 Years) and At-Risk Patients (6 to 64 Years) (1 - PCV) [code = Pneumococcal Vaccine: Pediatrics (0 to 5 Years) and At-Risk Patients (6 to 64 Years) (1 - PCV)] Future Scheduled 2022-02-27 Hepatitis C screening [facility] Test 05:24:42 (procedure) [code = 617476095] Future Scheduled 2022-02-27 Screening for [facility] Test 05:24:42 malignant neoplasm of cervix (procedure) [code = 463935331] Future Scheduled 2022-02-27 INFLUENZA VACCINE Method [facility] Test 05:24:42 [code = INFLUENZA VACCINE] Future Scheduled 2022-02-27 HEPATITIS B VACCINES Met [facility] Test 05:24:42 (1 of 3 - 3-dose series) [code = HEPATITIS B VACCINES (1 of 3 - 3-dose series)] Future Scheduled 2022-02-27 COVID-19 VACCINE (#1) [facility] Test 05:24:42 [code = COVID-19 VACCINE (#1)] Future Scheduled 2022-02-27 Pneumococcal Vaccine: [facility] Test 05:24:42 Pediatrics (0 to 5 Years) and At-Risk Patients (6 to 64 Years) (1 - PCV) [code = Pneumococcal Vaccine: Pediatrics (0 to 5 Years) and At-Risk Patients (6 to 64 Years) (1 - PCV)] Future Scheduled 2022-02-27 Hepatitis C screening [facility] Test 05:24:42 (procedure) [code = 969806282] Future Scheduled 2022-02-27 Screening for [facility] Test 05:24:42 malignant neoplasm of cervix (procedure) [code = 075399625] Future Scheduled 2022-02-27 INFLUENZA VACCINE Method [facility] Test 05:24:42 [code = INFLUENZA VACCINE] Future Scheduled 2022-02-27 HEPATITIS B VACCINES Met [facility] Test 05:24:42 (1 of 3 - 3-dose series) [code = HEPATITIS B VACCINES (1 of 3 - 3-dose series)] Future Scheduled 2022-02-27 COVID-19 VACCINE (#1) [facility] Test 05:24:42 [code = COVID-19 VACCINE (#1)] Future Scheduled 2022-02-27 Pneumococcal Vaccine: [facility] Test 05:24:42 Pediatrics (0 to 5 Years) and At-Risk Patients (6 to 64 Years) (1 - PCV) [code = Pneumococcal Vaccine: Pediatrics (0 to 5 Years) and At-Risk Patients (6 to 64 Years) (1 - PCV)] Future Scheduled 2022-02-27 Hepatitis C screening [facility] Test 05:24:42 (procedure) [code = 222748458] Future Scheduled 2022-02-27 Screening for [facility] Test 05:24:42 malignant neoplasm of cervix (procedure) [code = 785550369] Future Scheduled 2022-02-27 [facility]ACCINE [facility] Test 05:24:42 [code = INFLUENZA VACCINE] Future Scheduled 2021-07-22 COVID-19 VACCINE (1) Met [facility] Test 13:11:04 [code = COVID-19 VACCINE (1)] Future Scheduled 2021-07-22 Hepatitis C screening [facility] Test 13:11:04 (procedure) [code = 880833359] Future Scheduled 2021-07-22 Screening for [facility] Test 13:11:04 malignant neoplasm of cervix (procedure) [code = 813131018] Future Scheduled 2021-07-22 INFLUENZA VACCINE [facility] Test 13:11:04 [code = INFLUENZA VACCINE] Encounters Start End Encounter Admission Attending Care Care Encounter Source Date/Time Date/Time Type Type Clinicians Facility Department ID 2022-12-15 Outpatient [facility] [id number] [place] 16:29:22 [id number] [facility] 2022-12-11 Outpatient [facility] [id number] [place] 01:41:48 [id number] [facility] 2022-12-10 Outpatient [facility] [id number] [place] 14:27:47 [id number] [facility] 2022-08-28 Outpatient [facility] [id number] [place] 10:54:07 [id number] [facility] 2022-04-29 Outpatient [facility] [id number] [place] 09:02:27 [id number] Health 2022-04-28 Outpatient [facility] [id number] [place] 12:17:07 [id number] [facility] 2021-12-29 Outpatient [facility] [id number] [place] 11:56:31 [id number] [facility] 2021-12-19 Outpatient [facility] [place] [id number] [place] 14:05:12 [id number] [facility] 2021-12-12 Outpatient [facility] [place] [id number] [place] 12:11:07 [id number] [facility] 2021-12-05 Outpatient [facility] [place] [id number] [place] 20:09:51 [id number] [facility] 2021-10-28 Outpatient [facility] [id number] [place] 17:04:22 [id number] [facility] 2021-07-22 Outpatient nullFlavo [facility] [id number] Memoria 00:10:30 r Medical 05 l [facility] 2021-07-22 Preadmit nullFlavo [id number] Memoria 00:10:30 r [place] [address] [place] 2021-07-22 Outpatient nullFlavo [facility] [id number] Memoria 00:10:30 r Medical 06 l [facility] 2021-04-22 Emergency [facility] [id number] Univers 02:13:03 ity [facility] 2021-04-18 Emergency [facility] [id number] Univers 22:32:23 ity [facility] 2021-04-17 Emergency [facility] [id number] [facility]12 2022-12-16 Inpatient E MATEUSZ, [facility] [id number] [facility] 05:29:00 13:20:00 ZURDO 2022-12-10 2022-12-11 Emergency E JERARDOAshli, [facility] [address] [facility] 14:26:00 02:37:00 VELMA 2022-10-24 2022-10-24 Outpatient Daniels_b [facility] [id number] [facility] 00:00:00 00:00:00 [facility] 2022-08-28 2022-08-28 Outpatient Daniels_b [facility] DMG [id number] -2022 [facility] 00:00:00 00:00:00 0310 [facility] 2022-08-28 2022-08-28 Outpatient Daniels_b [facility] DMG [id number] -2022 [facility] 00:00:00 00:00:00 0315 [facility] 2022-04-09 2022-04-09 Outpatient Nodal_J DMG DMG [id number] 022 [facility] 00:00:00 00:00:00 1020 [facility] l Group 2022-01-02 2022-01-02 Outpatient Deshazo_T DMG DMG [id number] -2021 [facility] 03:37:00 03:37:00 0715 Medica l Group 2021-12-15 2021-12-15 Outpatient [facility], [facility] [id number] [place] 08:00:00 08:00:00 [facility] 2021-12-02 2021-12-02 Travel 1.2.840.1 [id number] [id number] Methodi 00:00:00 00:00:[address] 3.430.2.7 0.2.7.3.698 Ho spita .3.713057 084.8 l .8 2021-11-13 2021-11-13 Transcribe Patience, 1.2.840.1 [id number] Methodi 00:00:00 00:00:00 Orders Jose Miguel eHarn 92517.1.[address] 3.430.2.7 Hospit a .3.162539 l .8 2021-11-05 2021-11-05 Outpatient Deshazo_T DMG [facility] [id number] -2021 [facility] 12:00:00 12:00:00 0518 Medica l Group 2021-10-29 2021-10-29 Telephone Rosy, 1.2.840.1 [id number] Methodi 00:00:00 00:00:[address] Mohamed 3.430.2.7 Hospit a .3.866503 l .8 2021-08-20 2021-08-20 Outpatient Deshazo_T DMG [facility] [id number] -2021 [facility] 12:30:00 12:30:00 0302 Medica l Group 2021-07-08 2021-07-08 Office Ann, 1.2.840.1 [id number] Methodi 13:00:00 14:25:36 Visit Bessie 92743.1.[address] [place] 3.430.2.7 Hosp jo-ann .3.593884 l .8 2021-07-08 2021-07-08 Telephone Anthony, 1.2.840.1 [id number] [id number] Methodi 00:00:00 00:00:[address] 3.430.2.7 Hospit a .3.006945 l .8 2021-07-08 2021-07-08 Travel 1.2.840.1 1.2.982.096 7630 [id number] Methodi 00:00:00 00:00:[address] 3.430.2.7 0.2.7.3.698 Ho spita .3.749443 084.8 l .8 2021-07-03 2021-07-03 CAV Melany 2.16.840. 2.16.840.1. CLAC [id number] [facility] 19:00:00 20:00:00 Vladimir 1.254395. 018968.4.6. 467 Medical 4.6.42482 [id number] 2021-07-03 2021-07-03 Telephone Seth, 1.2.840.1 [id number] 2100 [id number] Methodi 00:00:00 00:00:[address] [facility] 3.430.2.7 Hosp jo-ann .3.266236 l .8 2021-06-24 2021-06-24 Outpatient Deshazo_T DMG [facility] [id number] -2021 [facility] 05:31:00 05:31:00 0104 Medica l Group 2021-06-23 2021-06-23 Telephone Anthony, 1.2.840.1 [id number] 2100 [id number] Methodi 00:00:00 00:00:[address] 3.430.2.7 Hospit a .3.532368 l .8 2021-06-04 2021-06-18 [facility] 1.2.840.1 [id number] Methodi 18:20:00 18:13:00 Encounter Rachel Brasher 87337.1.[address] [facility] 3.430.2.7 Hospita Shanda Shahid .3.208283 l Aurelio Schumacher .8 2021-06-16 2021-06-16 Anesthesia Yousif, 1.2.840.1 [id number] Methodi 23:59:59 23:59:59 Event Alesia Coelho 73317.1.[address] 3.430.2.7 Hospit a .3.320876 l .8 2021-06-16 2021-06-16 Surgery oJe, 1.2.840.1 [id number] Methodi 13:30:00 17:45:[address] [facility] 3.430.2.7 Hosp jo-ann .3.018729 l .8 2021-06-16 2021-06-16 Anesthesia Jose Carlos, 1.2.840.1 [id number] Methodi 15:19:00 17:19:00 Event Veto 18297.1.1 309 s t V. 3.430.2.7 Hospit a .3.549454 l .8 2021-06-10 2021-06-10 Surgery Juwan You 1.2.840.1 [id number] Methodi 08:00:00 10:30:[address] 3.430.2.7 Hospit a .3.943961 l .8 2021-06-10 2021-06-10 Anesthesia Doc, 1.2.840.1 [id number] [id number] Methodi 08:26:00 09:40:00 Event Sofi 73708.1.[address] Marquita 3.430.2.7 Hosp jo-ann .3.081023 l .8 2021-06-09 2021-06-09 Prep for Robert, 1.2.840.1 [id number] Methodi 00:00:00 00:00:00 Surgery Gayle 35532.1.[address] 3.430.2.7 Hospit a .3.419229 l .8 2021-06-09 2021-06-09 Prep for Robert, 1.2.840.1 [id number] Methodi 00:00:00 00:00:00 Surgery Gayle 65082.1.[address] 3.430.2.7 Hospit a .3.262223 l .8 2021-06-05 2021-06-05 Anesthesia AilynvalerieFrankie bills 1.2.840.1 [id number] Methodi 10:16:00 11:41:00 Event Chandler Silverman 50221.1.[address] 3.430.2.7 Hospit a .3.319299 l .8 2021-06-05 2021-06-05 Surgery Juwan You 1.2.840.1 [id number] [id number] Methodi 09:30:00 11:05:[address] 3.430.2.7 Hospit a .3.191905 l .8 2021-06-03 2021-06-03 Prep for Anthony, 1.2.840.1 [id number] Methodi 00:00:00 00:00:00 Surgery Forrest 95191.1.[address] 3.430.2.7 Hospit a .3.868731 l .8 2021-06-03 2021-06-03 Telephone Adelita, 1.2.840.1 [id number] 766 [id number] Methodi 00:00:00 00:00:00 Crysandria 62719.1.1 218 s t 3.430.2.7 Hospit a .3.112843 l .8 2021-05-28 2021-05-28 Outpatient Adams_R [facility] DMG [id number] 021 [facility] 05:00:00 05:00:00 1208 Medica l Group 2021-05-27 2021-05-27 Patient Tam, 1.2.840.1 [id number] Methodi 00:00:00 00:00:00 Outreach Maria M 79953.1.[address] 3.430.2.7 Hospit a .3.163217 l .8 2021-05-27 2021-05-27 Travel 1.2.840.1 1.2.112.691 1103 [id number] Methodi 00:00:00 00:00:[address] 3.430.2.7 0.2.7.3.698 Ho spita .3.600942 084.8 l .8 2021-05-27 2021-05-27 Orders Boles, 1.2.840.1 [id number] 2099 [id number] Methodi 00:00:00 00:00:00 Only Anila 73712.1.[address] 3.430.2.7 Hospit a .3.679015 l .8 2021-05-26 2021-05-26 Outpatient Adams_R [facility] 10526-5 021 [facility] 03:30:00 03:30:00 1206 Medica l Group 2021-05-26 2021-05-26 Telephone Anthony, 1.2.840.1 [id number] [id number] Methodi 00:00:00 00:00:[address] 3.430.2.7 Hospit a .3.106983 l .8 2021-05-19 2021-05-25 Hospital Juwan You 1.2.840.1 [id number] 2099 [id number] Methodi 06:00:00 15:59:00 Encounter Tom Barber 06939.1.[address] August, Marilu Sheridan 3.430.2.7 Hospita .3.783962 l .8 2021-05-21 2021-05-21 Outpatient [facility] [id number] 021 [facility] 03:30:00 03:30:00 1201 Medica l Group 2021-05-19 2021-05-19 Anesthesia Adam, 1.2.840.1 [id number] Methodi 18:45:00 20:31:00 Event Sukhjinder 57268.1.[address] Kendall 3.430.2.7 Hospit a .3.055218 l .8 2021-05-19 2021-05-19 Surgery Juwan You 1.2.840.1 [id number] 62740 [id number] Methodi 18:50:00 19:55:[address] 3.430.2.7 Hospit a .3.912190 l .8 2021-05-192021-05-19 Anesthesia AdamSukhjinder Kendall 1.2.840.1 [id number] Methodi 12:00:00 15:14:00 Event Hanane Ledezma 12194.1.[address] 3.430.2.7 Hospit a .3.010845 l .8 2021-05-19 2021-05-19 Surgery Juwan You 1.2.840.1 [id number] 27 Methodi 12:05:00 14:45:[address] 3.430.2.7 Hospit a .3.691913 l .8 2021-05-19 2021-05-19 Travel 1.2.840.1 1.2.450.731 8249 [id number] Methodi 00:00:00 00:00:[address] 3.430.2.7 0.2.7.3.698 Ho spita .3.174891 084.8 l .8 2021-05-14 2021-05-14 Telephone Corin, 1.2.840.1 [id number] Methodi 00:00:00 00:00:[address] 3.430.2.7 Hospit a .3.131293 l .8 2021-05-14 2021-05-14 Prep for Anthony, 1.2.840.1 [id number] Methodi 00:00:00 00:00:00 Surgery Forrest 99737.1.[address] 3.430.2.7 Hospit a .3.981302 l .8 2021-05-13 2021-05-13 Orders Doctor JOANNA 1.2.840.114 [id number] Univers 00:00:00 00:00:00 Only Unassigned, BEKA 350.1.13.10 ity of [place] [facility] 4.2.7.2.686 Baljinder as 127.0691863 [place] [address] [place] 2021-05-12 2021-05-12 Office Juwan You 1.2.840.1 [id number] Methodi 09:00:00 09:32:[address] 3.430.2.7 Hospit a .3.334760 l .8 2021-05-12 2021-05-12 Outpatient JUWAN YOU [facility] [id number] [place] 00:00:00 00:00:[address] 2021-05-12 2021-05-12 Telephone Anthony, 1.2.840.1 [id number] Methodi 00:00:00 00:00:[address] 3.430.2.7 Hospit a .3.397044 l .8 2021-05-12 2021-05-12 Travel 1.2.840.1 1.2.404.472 6927 263966 Methodi 00:00:00 00:00:[address] 3.430.2.7 0.2.7.3.698 Ho spita .3.107190 084.8 l .8 2021-05-08 2021-05-08 Orders Anthony, 1.2.840.1 [id number] 2385 Methodi 00:00:00 00:00:00 Only Forrest 71232.1.[address] 3.430.2.7 Hospit a .3.130848 l .8 2021-05-08 2021-05-08 Telephone Ramana, 1.2.840.1 [id number] Methodi 00:00:00 00:00:[address] 3.430.2.7 Hospit a .3.489702 l .8 2021-05-05 2021-05-05 Office Pati Juwan 1.2.840.1 [id number] 45425 Methodi 14:00:00 15:41:[address] 3.430.2.7 Hospit a .3.286263 l .8 2021-05-05 2021-05-05 Travel 1.2.840.1 1.2.286.747 5904 704175 Methodi 00:00:00 00:00:[address] 3.430.2.7 0.2.7.3.698 Ho spita .3.316070 084.8 l .8 2021-05-01 2021-05-01 Telephone Joe, 1.2.840.1 [id number] 2099 [id number] Methodi 00:00:00 00:00:[address] [facility] 3.430.2.7 Hosp jo-ann .3.934590 l .8 2021-04-08 2021-04-08 Outpatient Sj BHAT [facility] [id number] 799 Univers 09:00:00 09:00:00 MONA ity of [facility] 2021-03-24 2021-03-24 Transition Misha Garcia 1.2.840.114 [id number] Univers 00:00:00 00:00:00 of Anny Guzman 350.1.13.10 it y of [place] [id number] [place] [address] Branch 2021-03-19 2021-03-21 [facility] Jimena Easton 1.2.840.1 [id number] Univers 08:24:00 23:08:00 Encounter Eze Dias 52960.1.1 ity of [place] 3.104.2.7 [place] .3.811350 Medica l .8 Branch 2021-03-21 2021-03-21 Outpatient DMG DMG [id number] Devoted 08:01:00 08:01:00 1001 Medica l Group 2021-03-19 2021-03-19 Orders Doctor 1.2.840.8 [id number] Univers 00:00:00 00:00:00 Only Unassigned, 11702.1.1 ity of [place] 3.104.2.7 [place] .3.307984 Medica l .8 Branch 2021-03-19 2021-03-19 Travel 1.2.840.1 1.2.870.497 [id number] [id number] Univers 00:00:00 00:00:00 77171.1.1 350.1.13.10 ity 3.104.2.7 4.2.7.3.698 [place] .3.004296 084.8 Medica l .8 Branch 2021-01-21 2021-01-29 [facility] [id number] Memoria 15:50:00 20:14:00 [facility] 12 [facility] 2021-01-21 2021-01-29 Outpatient Aydee, [facility] [id number] 10:50:00 15:14:00 Monisha 12 2021-01-21 2021-01-29 Inpatient U AYDEE, [facility] CAR 7512 [facility] 10:50:00 15:14:00 MONISHA 2021-01-24 2021-01-24 [facility] [id number] [facility]oted 08:00:00 08:00:00 0806 Medica l Group 2021-01-21 2021-01-21 [facility] [id number] 10:50:00 10:50:00 Monisha 12 2021-01-03 2021-01-03 Office DOMINIQUE Diane 1.2.840.114 [id number] [place] 07:44:43 09:30:54 Visit Alexandr ALTMAN 350.1.13.58 H [facility] MEDICAL 9.2.7.2.686 [facility] [phone] 1 2021-01-03 2021-01-03 Office DOMINIQUE Diane 1.2.840.114 [id number] 07:44:43 09:30:54 Visit Alexandr ALTMAN 350.1.13.58 MEDICAL 9.2.7.2.686 [facility] [id number] 1 2020-12-26 2020-12-26 Outpatient Sj KIMBLE [facility] [id number] Univers 10:30:00 10:30:00 SENDIL ity of [facility] 2020-12-24 2020-12-25 Outpatient nullFlavo [facility] 543 [id number] Memoria 15:32:00 04:59:00 r Disease 11 l [facility] 2020-12-24 2020-12-24 Outpatient Wright, [facility] [id number] 10:32:00 23:59:00 Hui Madden 2020-12-24 2020-12-24 Outpatient WRIGHT, [facility] 7511 [facility] 10:32:00 23:59:00 HUI 2020-11-12 2020-11-12 Outpatient R CARLOS [facility] [id number] [facility] 09:00:00 09:00:00 JOSE LUIS itcaron [facility] 2020-10-27 2020-10-27 Keyona Kimble [facility] 1.2.840.114 [id number] 00:00:00 00:00:00 (Out) Oz Lehman 350.1.13.10 [place] 4.2.7.2.686 Professio [id number] [address] 2020-10-27 2020-10-27 Keyona Kimble [facility] 1.2.840.114 [id number] Univers 00:00:00 00:00:00 (Out) Oz Lehman 350.1.13.10 ity of [place] [phone] [address] 2020-10-24 2020-10-24 Orders Doctor JOANNA 1.2.840.114 [id number] 00:00:00 00:00:00 Only Unassigned, BEKA 350.1.13.10 [place] [facility] 4.2.7.2.686 [id number] [facility] 2020-10-24 2020-10-24 Orders Doctor JOANNA 1.2.840.114 [id number] Univers 00:00:00 00:00:00 Only Unassigned, BEKA 350.1.13.10 ity of [place] [facility] 4.2.7.2.686 Baljinder as [phone] [address] 2020-09-24 2020-09-24 Refill Carlos [facility] 1.2.840.114 [id number] 00:00:00 00:00:00 Jose Luis Lehman 350.1.13.10 [place] 4.2.7.2.686 Professio [phone] nal 220 Building 2020-09-24 2020-09-24 [facility] 1.2.840.114 [id number] Univers 00:00:00 00:00:00 Jose Luis Pecos 350.1.13.10 i ty of [place] [phone] Me dical nal 220 [address] Building 2020-09-09 2020-09-09 [facility] 1.2.840.114 [id number] 00:00:00 00:00:00 Outreach Earl PRIMARY 350.1.13.10 Manuel CARE 4.2.7.2.686 PAVILLION [id number] 388 2020-09-09 2020-09-09 [facility] 1.2.840.114 [id number] Univers 00:00:00 00:00:00 Outreach Earl PRIMARY 350.1.13.10 i ty of [place] [phone] Me dical 388 [place] 2020-08-06 2020-08-06 [facility] [id number] Univers 14:30:00 14:30:00 WENTONG [facility] 2020-08-05 2020-08-05 Outpatient [facility] [id number] Univers 13:30:00 13:30:00 DEJA ity [facility] 2020-07-23 2020-07-23 [facility] 1.2.840.114 [id number] Univers 13:39:08 23:59:00 Encounter Deja PRIMARY 350.1.13.10 ity of A [place].2.7.2.[place] [phone] Me dical 807 [place] 2020-07-23 2020-07-[address] [facility] 1.2.382.994 [id number] 13:31:20 14:37:36 Visit Deja PRIMARY 350.1.13.10 A CARE 4.2.7.2.686 PAVILLION [id number] 198 2020-07-23 2020-07-23 Office [facility] 1.2.897.483 [id number] Univers 13:31:20 14:37:36 Visit Deja PRIMARY 350.1.13.10 ity of [place].2.[place] [phone] [address] 2020-07-23 2020-07-23 Outpatient [facility] [id number] Univers 13:30:00 13:30:00 DEJA ity [facility] 2020-07-09 2020-07-09 Outpatient R [facility] [id number] Univers 09:00:00 09:00:00 ity of [facility] 2020-07-03 2020-07-03 [place] [facility] 1.2.871.996 [id number] Univers 00:00:00 00:00:00 Oz Lehman 350.1.13.10 ity of [place] [phone] Ne dical [address] 2020-06-27 2020-06-27 [facility] 1.2.840.114 [id number] Univers 10:05:43 11:00:00 Visit Oz Lehman 350.1.13.10 ity of [place] [phone] Ne dical [address] 2020-06-27 2020-06-27 Office [facility] 1.2.840.114 [id number] Univers 10:05:43 11:00:00 Visit Oz LEHMAN 350.1.13.10 ity of [place].2.7.2.[place] PROFESS[place] [phone] Ne dical [address] 2020-06-27 2020-06-27 [facility] [id number] Univers 09:30:00 11:00:00 SENDIL ity [facility] 2020-06-27 2020-06-27 Outpatient R LAMIN [facility] [id number] Univers 09:30:00 09:30:00 SENDIL ity [facility] 2020-05-28 2020-05-28 Laboratory Pc, Adc Echo Room 1 - [facility] 1 .2.840.114 [id number] Univers 08:01:11 08:48:06 Only Oz Kimble 350.1.13. 10 ity of [place] [phone] Ne dicla nal 059 [facility] 2020-05-28 2020-05-28 Outpatient R [facility] [id number] Univers 08:00:00 08:00:00 [facility] 2020-05-10 2020-05-10 Nurse Visit, [facility] Nurse [facility] 1.2.840.1 14 [id number] Univers 08:31:07 08:43:46 Visit Oz Kimble 350.1.13. 10 ity of [place] [phone] Ne dicla nal 059 [facility] 2020-05-10 2020-05-10 Outpatient R LAMIN [facility] [id number] Univers 08:30:00 08:30:00 SENDIL [facility] 2020-05-07 2020-05-07 Outpatient R [facility] [id number] Univers 08:00:00 08:00:00 ity [facility] 2020-05-01 2020-05-01 Office [facility] 1.2.840.114 [id number] Univers 11:02:55 12:04:48 Visit Jose Luis Lehman 350.1.13.10 i ty of [place] [phone] [facility] nal 220 [facility] 2020-05-01 2020-05-01 Outpatient R CARLOS [facility] [id number] Univers 10:30:00 10:30:00 HERIBERTOONG [facility] 2020-04-25 2020-04-25 Office [facility] 1.2.840.114 [id number] Univers 10:07:58 10:48:50 Visit Oz Lehman 350.1.13.10 ity [facility] 4.2.7.2.[place] [phone] Ne dical nal 059 [facility] 2020-04-25 2020-04-25 Outpatient [facility] [id number] Univers 10:00:00 10:00:00 SENDIL ity of [facility] 2020-04-25 2020-04-25 Orders Doctor JOANNA 1.2.840.114 [id number] Univers 00:00:00 00:00:00 Only Unassigned, BEKA 350.1.13.10 ity of [facility] 4.2.7.2.686 Baljinder as [phone] [address] 2020-04-05 2020-04-05 Outpatient [facility] [id number] Univers 09:30:00 09:30:00 SENDIL ity [facility] 2020-04-03 2020-04-03 [place] 2, Adc Lab [facility] 1.2.840.114 [id number] Univers 13:13:38 13:28:38 Visit Mona Bhat 350.1.13.10 ity [facility] 4.2.7.2.[place] [phone] Ne dical nal 353 [facility] 2020-04-03 2020-04-03 Outpatient [facility] [id number] Univers 13:00:00 13:00:00 MONA ity [facility] 2020-04-02 2020-04-02 Office [facility] 1.2.840.114 [id number] Univers 09:00:33 09:54:22 Visit Mona Lehman 350.1.13.10 ity [facility] 4.2.7.2.[place] [phone] Ne dical nal 134 [facility] 2020-04-02 2020-04-02 Outpatient [facility] [id number] Univers 08:30:00 08:30:00 MONA ity [facility] 2020-04-02 2020-04-02 Outpatient R CASEY [facility] [id number] Univers 08:30:00 08:30:00 MONA berkowitzcaron [facility] 2020-04-02 2020-04-02 Emergency [facility] 1.2.840.114 [id number] Univers 00:24:00 01:09:00 Marlinzora Lehman 350.1.13.10 i ty of [place].2.[place] [phone] [facility] 084 [place] 2020-04-02 2020-04-02 Orders Doctor JOANNA 1.2.840.114 [id number] Univers 00:00:00 00:00:00 Only Unassigned, BEKA 350.1.13.10 ity of [facility] 4.2.7.2.686 Baljinder as [phone] [facility] 009 [place] 2020-03-16 2020-03-16 Telephone [facility] 1.2.840.114 [id number] Univers 00:00:00 00:00:00 Yury Lehman 350.1.13.10 i ty of [place] [phone] Ne dical nal 134 [facility] 2020-03-08 2020-03-08 Outpatient [facility] [id number] Univers 11:00:00 11:00:00 LIMA currie [facility] 2020-03-07 2020-03-07 Telephone [facility] 1.2.840.114 [id number] Univers 00:00:00 00:00:00 Lima Lehman 350.1.13.10 ity of [place] [phone] Ne dical nal 188 [facility] 2020-02-06 2020-02-06 Outpatient [facility] [id number] Univers 09:30:00 09:30:00 BRANDON low [facility] 2020-02-06 2020-02-06 Office [facility] 1.2.840.114 [id number] Univers 08:57:01 09:24:05 Visit Brandon Lehman 350.1.13.10 i ty of [place]2.7.2.[place] [facility] [phone] Ne dical nal 044 [address] Building 2020-01-25 2020-01-31 Inpatient 1 Rei Waldron [facility] GPY [id number] 21:31:00 18:15:[address] [facility] 2020-01-24 2020-01-24 Outpatient [facility] [id number] Univers 09:45:00 09:45:00 HUMAIR ity [facility] 2020-01-23 2020-01-23 Outpatient Sj [facility] [id number] Univers 10:30:00 10:30:00 HUMAIR ity [facility] 2019-12-18 2019-12-18 Outpatient Sj [facility] [id number] Univers 08:00:00 08:00:00 YISSEL [facility] 2019-12-04 2019-12-04 Outpatient S[facility] [id number] Univers 14:15:00 14:15:00 BRANDON ity [facility] 2019-11-06 2019-11-06 Telemedici Tangela, UNIVERSIT 1.2.840.114 [id number] Univers 07:49:37 08:46:52 ne Visit Yissel Caron 350.1.13.10 ity of [facility] 4.2.7.2.686 Baljinder as BANK [phone] [facility] BLDG. [address] 2019-11-06 2019-11-06 Outpatient Sj RUST [facility] [id number] Univers 08:00:00 08:00:00 YISSEL ity [facility] 2019-10-01 2019-10-01 Emergency [facility] 1.2.936.474 [id number] Univers 15:47:29 19:01:00 Stacie Lehman 350.1.13.10 i ty of [place].2.[place] [phone] [facility] 084 [address] 2019-09-05 2019-09-05 Outpatient Sj JOHN [facility] [id number] Univers 13:30:00 13:30:00 BRANDON ity of [facility] 2019-08-28 2019-08-28 Outpatient Sj RUVALCABAZEKE [facility] [id number] Univers 15:00:00 15:00:00 ity of [facility] 2019-02-27 2019-02-27 [facility] 1.2.840.114 [id number] Univers 00:00:00 00:00:00 Adán T SPECIALTY 350.1.13.10 ity of C[place] C[place] AT [phone] [facility] 188 [facility] 2019-02-25 2019-02-25 Telephone [facility] 1.2.840.114 [id number] Univers 00:00:00 00:00:00 Adán T SPECIALTY 350.1.13.10 ity of C[place].2.[place] AT [phone] Ne jim PARSONS 205 [facility] 2019-02-22 2019-02-22 [facility].8 40.114 [id number] Univers 09:19:22 23:59:00 Encounter Outpt-Josy, Ccl [place] 350.1.13.10 ity of Hospital 4.2.7.2.686 Baljinder as [phone] [address] 2019-02-22 2019-02-22 [facility] 1.2.8 40.114 [id number] Univers 08:00:00 09:18:00 Encounter Outpt-Josy, Ccl Beka 350.1.13.10 ity of [facility] 4.2.7.2.686 Baljinder as [phone] [facility] 247 [place] 2019-02-17 2019-02-17 Office Germán [facility] 1.2.840.114 [id number] Univers 13:09:08 13:54:39 Visit Gary gray 350.1.13.10 ity of [place].2.[place] CENTER [phone] [facility] 136 [place] 2019-02-17 2019-02-17 Orders Doctor MARSHALL 1.2.840.114 [id number] Univers 00:00:00 00:00:00 Only Unassigned, BEKA 350.1.13.10 ity of [place] HOSPITAL 4.2.7.2.686 Baljinder as [phone] [facility] 009 [address] 2019-01-25 2019-01-25 Telephone Traci Kimble 1.2.287.256 [id number] Univers 00:00:00 00:00:00 Oz Ireland 350.1.13.10 ity of Hospital 4.2.7.2.686 Baljinder as [phone] [facility] 247 [place] 2019-01-25 2019-01-25 Telephone Traci Kimble 1.2.876.952 [id number] Univers 00:00:00 00:00:00 Sendbhavana Bolaños Beka 350.1.13.10 ity of Hospital 4.2.7.2.686 Baljinder as [phone] [facility] 247 [place] 2019-01-20 2019-01-20 Office [facility] 1.2.840.114 [id number] Univers 08:55:54 09:56:43 Visit Oz Lehman 350.1.13.10 ity of [place].2.[place] [phone] Ne dical nal 059 [facility] 2019-01-14 2019-01-15 Emergency Hunderup, TRAUMA 1.2.840.114 [id number] Univers 18:20:35 00:24:00 [facility] 350.1.13.10 it y of [place]2.[place] [phone] [facility] 014 Branch 2019-01-13 2019-01-13 Office [facility] 1.2.840.114 [id number] Univers 08:10:44 09:19:41 Visit Lima Lehman 350.1.13.10 ity of [place] 4[place].2.[place] [phone] Ne dical nal 205 [facility] 2018-05-24 2018-05-[address], SLE SLE [id number] SLEH 00:00:00 00:00:00 LY 2016-07-24 2016-07-30 Inpatient nullFlavo [facility] [id number] Memoria 02:04:00 16:20:[address] 2016-07-23 2016-07-30 Outpatient Yaquelin [facility] [id number] 20:04:00 10:20:00 Luna Segundo 2016-06-10 2016-06-15 [facility] [id number] Memoria 16:02:00 18:23:[address] 2016-06-10 2016-06-15 Outpatient Franck [facility] [id number] 10:02:00 12:23:00 Joe Yan 09 2014-06-26 2014-06-26 EC nullFlavo [facility] [id number] Memoria 05:25:00 15:14:00 Emergency r [place] 08 [facility] 2014-06-25 2014-06-26 Outpatient Ostermayer, 2.16.840. 2.16.840. 1. [id number] 23:25:00 09:14:00 Atul 1.477959. [id number] 08 Cem 3.615.0.1 5.0.030 28 2520-10-25 2013-04-15 [facility] [id number] Memoria 21:04:00 01:45:[address] 2013-04-14 2013-04-15 Outpatient 2.16.840. 2.16.840.1. 4 [id number] Memoria 21:04:00 01:45:00 1.357272. [id number] 07 l 3.615.0.1 5.0.101 Jake n [facility] 2013-04-14 2013-04-15 Outpatient 2.16.840. 2.16.840.1. 4 [id number] Memoria 21:04:00 01:45:00 1.356386. [id number] 07 l 3.615.0.1 5.0.101 Jake n [facility] 2013-04-14 2013-04-15 Outpatient 2.16.840. 2.16.840.1. 4 [id number] Memoria 21:04:00 01:45:00 1.852146. [id number] 07 l 3.615.0.1 5.0.101 Jake n 01 [facility] 2013-04-14 2013-04-15 Outpatient 2.16.840. 2.16.840.1. 4 [id number] Memoria 21:04:00 01:45:00 1.084727. [id number] 07 l 3.615.0.1 5.0.101 Jake n 01 [facility] 2013-04-14 2013-04-15 Outpatient 2.16.840. 2.16.840.1. 4 [id number] Memoria 21:04:00 01:45:00 1.132205. [id number] 07 l 3.615.0.1 5.0.101 Jake n [facility] 2012-03-14 2012-03-14 Emergency nullFlavo [id number] Memoria 16:32:00 22:39:00 r [facility] 04 [facility] 2011-11-28 2011-11-30 OU nullFlavo [facility] [id number] Memoria 12:16:00 20:40:00 [facility] 03 [facility] 2011-09-18 2011-09-18 Emergency nullFlavo [facility] [id number] Memoria 08:23:00 13:34:00 [facility] 02 [facility] 2011-09-01 2011-09-09 Inpatient nullFlavo [facility] [id number] Memoria 01:40:00 15:00:00 [facility] 01 [facility] 2011-08-19 2011-08-23 Inpatient nullFlavo [facility] [id number] Memoria 14:25:00 15:28:[address] Results Test Description Test Time Test Comments Results Result Comments Source AFB culture 2021-07-22 18:13:19 Test Item Value Reference Range Interpretation Comme nts AFB culture isolate No growth after 6 weeks of Specimen InformationSpecimen (test code = 543-9) incubation. Source: DrainageSpecimen Site: Thigh: infected wound right [facility] [id number] 18:13:19 Test Item Value Reference Range Interpretation Comments AFB culture No growth Specimen isolate (test after 6 weeks InformationSp ecimen code = 543-9) of Source: [place] geSpecimen incubation. Site: Thigh: in fected wound right [facility] [id number] 18:13:19 Test Item Value Reference Range Interpretation Comments AFB culture No growth Specimen isolate (test after 6 weeks InformationSp ecimen code = 543-9) of Source: [place] geSpecimen incubation. Site: Thigh: in fected wound right [facility] [id number] 18:13:19 Test Item Value Reference Range Interpretation Comments AFB culture No growth Specimen isolate (test after 6 weeks InformationSp ecimen code = 543-9) of Source: [place] geSpecimen incubation. Site: Thigh: in fected wound right [facility]2022-02-01 18:13:19 Test Item Value Reference Range Interpretation Comments AFB culture No growth Specimen isolate (test after 6 weeks InformationSp ecimen code = 543-9) of Source: [place] geSpecimen incubation. Site: Thigh: in fected wound right [facility] [id number] 18:13:19 Test Item Value Reference Range Interpretation Comments AFB culture No growth Specimen isolate (test after 6 weeks InformationSp ecimen code = 543-9) of Source: [place] geSpecimen incubation. Site: Thigh: in fected wound right [facility] [id number] 18:13:19 Test Item Value Reference Range Interpretation Comments AFB culture No growth Specimen isolate (test after 6 weeks InformationSp ecimen code = 543-9) of Source: [place] geSpecimen incubation. Site: Thigh: in fected wound right [facility] [id number] 18:13:19 Test Item Value Reference Range Interpretation Comments AFB culture No growth Specimen isolate (test after 6 weeks InformationSp ecimen code = 543-9) of Source: [place] geSpecimen incubation. Site: Thigh: in fected wound right [facility] [id number] 18:13:19 Test Item Value Reference Range Interpretation Comments AFB culture No growth Specimen isolate (test after 6 weeks InformationSp ecimen code = 543-9) of Source: [place] geSpecimen incubation. Site: Thigh: in fected wound right [facility] [id number] 18:13:19 Test Item Value Reference Range Interpretation Comments AFB culture No growth Specimen isolate (test after 6 weeks InformationSp ecimen code = 543-9) of Source: [place] geSpecimen incubation. Site: Thigh: in fected wound right [facility] [id number] 18:13:19 Test Item Value Reference Range Interpretation Comments AFB culture No growth Specimen isolate (test after 6 weeks InformationSp ecimen code = 543-9) of Source: [place] geSpecimen incubation. Site: Thigh: in fected wound right [facility] [id number] 18:15:13 Test Item Value Reference Range Interpretation Comments Fungus culture No growth Specimen isolate (test after 4 weeks InformationSp ecimen code = 1441) of Source: TissueS pecimen incubation. Site: Thigh [facility]2022-01-25 18:15:13 Test Item Value Reference Range Interpretation Comments Fungus culture No growth Specimen isolate (test after 4 weeks InformationSp ecimen code = 1441) of Source: TissueS pecimen incubation. Site: Thigh [facility]2022-01-25 18:15:13 Test Item Value Reference Range Interpretation Comments Fungus culture No growth Specimen isolate (test after 4 weeks InformationSp ecimen code = 1441) of Source: TissueS pecimen incubation. Site: Thigh [facility]2022-01-25 18:15:13 Test Item Value Reference Range Interpretation Comments Fungus culture No growth Specimen isolate (test after 4 weeks InformationSp ecimen code = 1441) of Source: TissueS pecimen incubation. Site: Thigh [facility]2022-01-25 18:15:13 Test Item Value Reference Range Interpretation Comments Fungus culture No growth Specimen isolate (test after 4 weeks InformationSp ecimen code = 1441) of Source: TissueS pecimen incubation. Site: Thigh [facility]2022-01-25 18:15:13 Test Item Value Reference Range Interpretation Comments Fungus culture No growth Specimen isolate (test after 4 weeks InformationSp ecimen code = 1441) of Source: TissueS pecimen incubation. Site: Thigh [facility] [id number] 18:15:13 Test Item Value Reference Range Interpretation Comments Fungus culture No growth Specimen isolate (test after 4 weeks InformationSp ecimen code = 1441) of Source: TissueS pecimen incubation. Site: Thigh [facility]2022-01-25 18:15:13 Test Item Value Reference Range Interpretation Comments Fungus culture No growth Specimen isolate (test after 4 weeks InformationSp ecimen code = 1441) of Source: TissueS pecimen incubation. Site: Thigh [facility] [id number] 18:15:13 Test Item Value Reference Range Interpretation Comments Fungus culture No growth Specimen isolate (test after 4 weeks InformationSp ecimen code = 1441) of Source: TissueS pecimen incubation. Site: [facility]2022-01-25 18:15:13 Test Item Value Reference Range Interpretation Comments Fungus culture No growth Specimen isolate (test after 4 weeks InformationSp ecimen code = 1441) of Source: TissueS pecimen incubation. Site: [facility]2022-01-25 18:15:13 Test Item Value Reference Range Interpretation Comments Fungus culture No growth Specimen isolate (test after 4 weeks InformationSp ecimen code = 1441) of Source: TissueS pecimen incubation. Site: [facility]2022-01-25 18:15:13 Test Item Value Reference Range Interpretation Comments Fungus culture No growth Specimen isolate (test after 4 weeks InformationSp ecimen code = 1441) of Source: TissueS pecimen incubation. Site: [facility]2022-01-25 18:15:13 Test Item Value Reference Range Interpretation Comments Fungus culture No growth Specimen isolate (test after 4 weeks InformationSp ecimen code = 1441) of Source: TissueS pecimen incubation. Site: [facility]2022-01-01 14:31:13 Test Item Value Reference Range Interpretation Comments Anaerobic No anaerobic Specimen culture isolate organisms InformationS pecimen (test code = isolated. Source: TissueS pecimen 552) Site: [facility]2022-01-01 14:31:13 Test Item Value Reference Range Interpretation Comments Anaerobic No anaerobic Specimen culture isolate organisms InformationS pecimen (test code = isolated. Source: TissueS pecimen 552) Site: [address]01-01 14:31:13 Test Item Value Reference Range Interpretation Comments Anaerobic No anaerobic Specimen culture isolate organisms InformationS pecimen (test code = isolated. Source: TissueS pecimen 552) Site: [place] [address]-01-01 14:31:13 Test Item Value Reference Range Interpretation Comments Anaerobic No anaerobic Specimen culture isolate organisms InformationS pecimen (test code = isolated. Source: TissueS pecimen 552) Site: [place] [address]-01-01 14:31:13 Test Item Value Reference Range Interpretation Comments Anaerobic No anaerobic Specimen culture isolate organisms InformationS pecimen (test code = isolated. Source: TissueS pecimen 552) Site: [place] [address]-01-01 14:31:13 Test Item Value Reference Range Interpretation Comments Anaerobic No anaerobic Specimen culture isolate organisms InformationS pecimen (test code = isolated. Source: TissueS pecimen 552) Site: [place] 802342-01-01 14:31:13 Test Item Value Reference Range Interpretation Comments Anaerobic No anaerobic Specimen culture isolate organisms InformationS pecimen (test code = isolated. Source: TissueS pecimen 552) Site: [place] [address]-01-01 14:31:13 Test Item Value Reference Range Interpretation Comments Anaerobic No anaerobic Specimen culture isolate organisms InformationS pecimen (test code = isolated. Source: TissueS pecimen 552) Site: [place] 802342-01-01 14:31:13 Test Item Value Reference Range Interpretation Comments Anaerobic No anaerobic Specimen culture isolate organisms InformationS pecimen (test code = isolated. Source: TissueS pecimen 552) Site: [place] 802342-01-01 14:31:13 Test Item Value Reference Range Interpretation Comments Anaerobic No anaerobic Specimen culture isolate organisms InformationS pecimen (test code = isolated. Source: TissueS pecimen 552) Site: [place] [address]-01-01 14:31:13 Test Item Value Reference Range Interpretation Comments Anaerobic No anaerobic Specimen culture isolate organisms InformationS pecimen (test code = isolated. [facility] Site: [place] 802342-01-01 14:31:13 Test Item Value Reference Range Interpretation Comments Anaerobic No anaerobic Specimen culture isolate organisms InformationS pecimen (test code = isolated. [facility] Site: [facility]2022-01-01 14:31:13 Test Item Value Reference Range Interpretation Comments Anaerobic No anaerobic Specimen culture isolate organisms InformationS pecimen (test code = isolated. [facility] Site: [facility]2021-12-31 16:51:58 Test Item Value Reference Range Interpretation Comments Gram stain No WBC's or Specimen isolate (test organisms seen. Information Specimen code = 1469) Source: [facility] Site: [facility] [id number] 16:51:58 Test Item Value Reference Range Interpretation Comments Aerobic culture No growth Specimen isolate (test after 3 days. InformationSp ecimen code = 498) Source: [facility] Site: [facility] [id number] 16:51:58 Test Item Value Reference Range Interpretation Comments Fungus smear No fungi Specimen (test code = observed. InformationSpec imen Source: 1443) [facility] Site: [facility]2021-12-31 16:51:58 Test Item Value Reference Range Interpretation Comments Gram stain No WBC's or Specimen isolate (test organisms seen. Information Specimen code = 1469) Source: [facility] Site: [facility] [id number] 16:51:58 Test Item Value Reference Range Interpretation Comments Aerobic culture No growth Specimen isolate (test after 3 days. InformationSp ecimen code = 498) Source: [facility] [id number] 16:51:58 Test Item Value Reference Range Interpretation Comments Fungus smear No fungi Specimen (test code = observed. InformationSpec imen Source: 1443) [facility] Site: [facility] [id number] 16:51:58 Test Item Value Reference Range Interpretation Comments Gram stain No WBC's or Specimen isolate (test organisms seen. Information Specimen code = 1469) Source: [facility] [id number] 16:51:58 Test Item Value Reference Range Interpretation Comments Aerobic culture No growth Specimen isolate (test after 3 days. InformationSp ecimen code = 498) Source: [facility] [id number] 16:51:58 Test Item Value Reference Range Interpretation Comments Fungus smear No fungi Specimen (test code = observed. InformationSpec imen Source: 1443) TissueSpecime Site: [facility] [id number] 16:51:58 Test Item Value Reference Range Interpretation Comments Gram stain No WBC's or Specimen isolate (test organisms seen. Information Specimen code = 1469) Source: [facility] Site: [facility] [id number] 16:51:58 Test Item Value Reference Range Interpretation Comments Aerobic culture No growth Specimen isolate (test after 3 days. InformationSp ecimen code = 498) Source: [facility] [id number] 16:51:58 Test Item Value Reference Range Interpretation Comments Fungus smear No fungi Specimen (test code = observed. InformationSpec imen Source: 1443) [facility]: [facility]2021-12-31 16:51:58 Test Item Value Reference Range Interpretation Comments Gram stain No WBC's or Specimen isolate (test organisms seen. Information Specimen code = 1469) Source: [facility] Site: [facility] [id number] 16:51:58 Test Item Value Reference Range Interpretation Comments Aerobic culture No growth Specimen isolate (test after 3 days. InformationSp ecimen code = 498) Source: [facility] [id number] 16:51:58 Test Item Value Reference Range Interpretation Comments Fungus smear No fungi Specimen (test code = observed. InformationSpec imen Source: 1443) [facility] Site: [facility] [id number] 16:51:58 Test Item Value Reference Range Interpretation Comments Gram stain No WBC's or Specimen isolate (test organisms seen. Information Specimen code = 1469) Source: [facility] [id number] 16:51:58 Test Item Value Reference Range Interpretation Comments Aerobic culture No growth Specimen isolate (test after 3 days. InformationSp ecimen code = 498) Source: [facility] [id number] 16:51:58 Test Item Value Reference Range Interpretation Comments Fungus smear No fungi Specimen (test code = observed. InformationSpec imen Source: 1443) TissueSpecimen Site: [facility] [id number] 16:51:58 Test Item Value Reference Range Interpretation Comments Gram stain No WBC's or Specimen isolate (test organisms seen. Information Specimen code = 1469) Source: [facility] [id number] 16:51:58 Test Item Value Reference Range Interpretation Comments Aerobic culture No growth Specimen isolate (test after 3 days. InformationSp ecimen code = 498) Source: [facility] [id number] 16:51:58 Test Item Value Reference Range Interpretation Comments Fungus smear No fungi Specimen (test code = observed. InformationSpec imen Source: 1443) TissueSpecime Site: [facility] [id number] 16:51:58 Test Item Value Reference Range Interpretation Comments Gram stain No WBC's or Specimen isolate (test organisms seen. Information Specimen code = 1469) Source: [facility] [id number] 16:51:58 Test Item Value Reference Range Interpretation Comments Aerobic culture No growth Specimen isolate (test after 3 days. InformationSp ecimen code = 498) Source: [facility] [id number] 16:51:58 Test Item Value Reference Range Interpretation Comments Fungus smear No fungi Specimen (test code = observed. InformationSpec imen Source: 1443) TissueSpecime Site: [facility] [id number] 16:51:58 Test Item Value Reference Range Interpretation Comments Gram stain No WBC's or Specimen isolate (test organisms seen. Information Specimen code = 1469) Source: [facility] [id number] 16:51:58 Test Item Value Reference Range Interpretation Comments Aerobic culture No growth Specimen isolate (test after 3 days. InformationSp ecimen code = 498) Source: [facility] [id number] 16:51:58 Test Item Value Reference Range Interpretation Comments Fungus smear No fungi Specimen (test code = observed. InformationSpec imen Source: 1443) TissueSpecimen Site: [facility]2021-12-31 16:51:58 Test Item Value Reference Range Interpretation Comments Gram stain No WBC's or Specimen isolate (test organisms seen. Information Specimen code = 1469) Source: [facility] [id number] 16:51:58 Test Item Value Reference Range Interpretation Comments Aerobic culture No growth Specimen isolate (test after 3 days. InformationSp ecimen code = 498) Source: [facility] Site: [facility] [id number] 16:51:58 Test Item Value Reference Range Interpretation Comments Fungus smear No fungi Specimen (test code = observed. InformationSpec imen Source: 1443) [facility]2021-12-31 16:51:58 Test Item Value Reference Range Interpretation Comments Gram stain No WBC's or Specimen isolate (test organisms seen. Information Specimen code = 1469) Source: [facility] Site: [facility]2021-12-31 16:51:58 Test Item Value Reference Range Interpretation Comments Aerobic culture No growth Specimen isolate (test after 3 days. InformationSp ecimen code = 498) Source: [facility] Site: [facility]2021-12-31 16:51:58 Test Item Value Reference Range Interpretation Comments Fungus smear No fungi Specimen (test code = observed. InformationSpec imen Source: 1443) [facility] Site: [facility] [id number] 16:51:58 Test Item Value Reference Range Interpretation Comments Gram stain No WBC's or Specimen isolate (test organisms seen. Information Specimen code = 1469) Source: [facility] [id number] 16:51:58 Test Item Value Reference Range Interpretation Comments Aerobic culture No growth Specimen isolate (test after 3 days. InformationSp ecimen code = 498) [facility] [id number] 16:51:58 Test Item Value Reference Range Interpretation Comments Fungus smear No fungi Specimen (test code = observed. InformationSpec imen Source: 1443) TissueSpecimen [facility] [id number] 16:51:58 Test Item Value Reference Range Interpretation Comments Gram stain No WBC's or Specimen isolate (test organisms seen. Information Specimen code = 1469) Source: [facility] [id number] 16:51:58 Test Item Value Reference Range Interpretation Comments Aerobic culture No growth Specimen isolate (test after 3 days. InformationSp ecimen code = 498) Source: [facility] [id number] 16:51:58 Test Item Value Reference Range Interpretation Comments Fungus smear No fungi Specimen (test code = observed. InformationSpec imen Source: 1443) TissueSpecimen Site: [facility] [id number] 17:00:57 Test Item Value Reference Range Interpretation Comments POC glucose (test code 79 mg/dL 65-99 Opera tor Name: Eboni = 41070-7) AmiDevice ID: [id number] [facility] [id number] 17:00:57 Test Item Value Reference Range Interpretation Comments POC glucose (test code 79 mg/dL 65-99 Opera tor Name: Eboni = 62055-3) AmiDevice ID: [id number] [facility] [id number] 17:00:57 Test Item Value Reference Range Interpretation Comments POC glucose (test code 79 mg/dL 65-99 Opera tor Name: Eboni = 06485-0) AmiDevice ID: [id number] [facility] [id number] 17:00:57 Test Item Value Reference Range Interpretation Comments POC glucose (test code 79 mg/dL 65-99 Opera tor Name: Eboni = 12396-6) AmiDevice ID: [id number] [facility]2021-12-29 17:00:57 Test Item Value Reference Range Interpretation Comments POC glucose (test code 79 mg/dL 65-99 Opera tor Name: Eboni = 51547-3) AmiDevice ID: [id number] [facility] [id number] 17:00:57 Test Item Value Reference Range Interpretation Comments POC glucose (test code 79 mg/dL 65-99 Opera tor Name: Eboni = 34567-2) AmiDevice ID: [id number] [facility]2021-12-29 17:00:57 Test Item Value Reference Range Interpretation Comments POC glucose (test code 79 mg/dL 65-99 Opera tor Name: Eboni = 50760-9) AmiDevice ID: [id number] [facility]2021-12-29 17:00:57 Test Item Value Reference Range Interpretation Comments POC glucose (test code 79 mg/dL 65-99 Opera tor Name: Eboni = 76850-4) AmiDevice ID: [id number] [facility]2021-12-29 17:00:57 Test Item Value Reference Range Interpretation Comments POC glucose (test code 79 mg/dL 65-99 Opera tor Name: Eboni = 34075-8) AmiDevice ID: [id number] [facility]2021-12-29 17:00:57 Test Item Value Reference Range Interpretation Comments POC glucose (test code 79 mg/dL 65-99 Opera tor Name: Eboni = 23686-0) AmiDevice ID: [id number] [facility]2021-12-29 17:00:57 Test Item Value Reference Range Interpretation Comments POC glucose (test code 79 mg/dL 65-99 Opera tor Name: Eboni = 48953-9) AmiDevice ID: [id number] [facility]2021-12-29 17:00:57 Test Item Value Reference Range Interpretation Comments POC glucose (test code 79 mg/dL 65-99 Opera tor Name: Eboni = 99703-4) AmiDevice ID: [id number] [facility]2021-12-29 17:00:57 Test Item Value Reference Range Interpretation Comments POC glucose (test code 79 mg/dL 65-99 Opera tor Name: Eboni = 31887-5Kole AmiDevice ID: [id number] [facility] [id number] 20:46:00 Test Item Value Reference Range Interpretation Comments test urine, POC (test Negative code = 0624827) Internal QC (test code = 257) QC acceptable [facility] [id number] 20:46:00 Test Item Value Reference Range Interpretation Comments test urine, POC (test Negative code = 6159317) Internal QC (test code = 257) QC acceptable [facility] [id number] 20:46:00 Test Item Value Reference Range Interpretation Comments test urine, POC (test Negative code = 5274382) Internal QC (test code = 257) QC acceptable [facility] [id number] 20:46:00 Test Item Value Reference Range Interpretation Comments test urine, POC (test Negative code = 2648017) Internal QC (test code = 257) QC acceptable [facility] , [id number] 20:46:00 Test Item Value Reference Range Interpretation Comments test urine, POC (test Negative code = 4741134) Internal QC (test code = 257) QC acceptable [facility] [id number] 20:46:00 Test Item Value Reference Range Interpretation Comments test urine, POC (test Negative code = 2474717) Internal QC (test code = 257) QC acceptable [facility] , [id number] 20:46:00 Test Item Value Reference Range Interpretation Comments test urine, POC (test Negative code = 6154890) Internal QC (test code = 257) QC acceptable [facility] [id number] 20:46:00 Test Item Value Reference Range Interpretation Comments test urine, POC (test Negative code = 4367625) Internal QC (test code = 257) QC acceptable [facility] [id number] 20:46:00 Test Item Value Reference Range Interpretation Comments test urine, POC (test Negative code = 6689344) Internal QC (test code = 257) QC acceptable [facility] , [id number] 20:46:00 Test Item Value Reference Range Interpretation Comments test urine, POC (test Negative code = 1173596) Internal QC (test code = 257) QC acceptable [facility] , [id number] 20:46:00 Test Item Value Reference Range Interpretation Comments test urine, POC (test Negative code = 0041626) Internal QC (test code = 257) QC acceptable [facility] , [id number] 20:46:00 Test Item Value Reference Range Interpretation Comments test urine, POC (test Negative code = 0202721) Internal QC (test code = 257) QC acceptable [facility] , [id number] 20:46:00 Test Item Value Reference Range Interpretation Comments test urine, POC (test Negative code = 2024952) Internal QC (test code = 257) QC acceptable [address]2021-12-27 17:27:33 Test Item Value Reference Range [...] 04-JUN-2021 18:19,-No significant change was found- [address]2021-12-27 17:27:33 Test Item Value Reference Range [...] 04-JUN-2021 18:19,-No significant change was found- [address]2021-12-27 17:27:33 Test Item Value Reference Range [...] 04-JUN-2021 18:19,-No significant change was found- [address]2021-12-27 17:27:33 Test Item Value Reference Range [...] 04-JUN-2021 18:19,-No significant change was found- [address]2021-12-27 17:27:33 Test Item Value Reference Range [...] 04-JUN-2021 18:19,-No significant change was found- [address]2021-12-27 17:27:33 Test Item Value Reference Range [...] 04-JUN-2021 18:19,-No significant change was found- [address]2021-12-27 17:27:33 Test Item Value Reference Range [...] 04-JUN-2021 18:19,-No significant change was found- [address]2021-12-27 17:27:33 Test Item Value Reference Range [...] 04-JUN-2021 18:19,-No significant change was found- [address]2021-12-27 17:27:33 Test Item Value Reference Range [...] 04-JUN-2021 18:19,-No significant change was found- [address]2021-12-27 17:27:33 Test Item Value Reference Range [...] 04-JUN-2021 18:19,-No significant change was found- [address]2021-12-27 17:27:33 Test Item Value Reference Range [...] 04-JUN-2021 18:19,-No significant change was found- [address]2021-12-27 17:27:33 Test Item Value Reference Range [...] 04-JUN-2021 18:19,-No significant change was found- [address]2021-12-27 17:27:33 Test Item Value Reference Range [...] of 04-JUN-2021 18:19,-No significant change was found- [place] [facility]2021-12-27 11:06:00 Test Item Value Reference Range Interpretation Comments ABO grouping (test code = 883-9) B Rh type (test code = 44890-9) POS Antibody screen (gel) (test code = NEG 890-4) [facility] and [id number] 11:06:00 Test Item Value Reference Range Interpretation Comments ABO grouping (test code = 883-9) B Rh type (test code = 09599-6) POS Antibody screen (gel) (test code = NEG 890-4) [facility] and [id number] 11:06:00 Test Item Value Reference Range Interpretation Comments ABO grouping (test code = 883-9) B Rh type (test code = 13100-0) POS Antibody screen (gel) (test code = NEG 890-4) [facility] and [id number] 11:06:00 Test Item Value Reference Range Interpretation Comments ABO grouping (test code = 883-9) B Rh type (test code = 44457-7) POS Antibody screen (gel) (test code = NEG 890-4) [facility] and [id number] 11:06:00 Test Item Value Reference Range Interpretation Comments ABO grouping (test code = 883-9) B Rh type (test code = 86909-8) POS Antibody screen (gel) (test code = NEG 890-4) [facility] and [id number] 11:06:00 Test Item Value Reference Range Interpretation Comments ABO grouping (test code = 883-9) B Rh type (test code = 00345-5) POS Antibody screen (gel) (test code = NEG 890-4) [facility] and [id number] 11:06:00 Test Item Value Reference Range Interpretation Comments ABO grouping (test code = 883-9) B Rh type (test code = 56641-8) POS Antibody screen (gel) (test code = NEG 890-4) [facility] and [id number] 11:06:00 Test Item Value Reference Range Interpretation Comments ABO grouping (test code = 883-9) B Rh type (test code = 11562-4) POS Antibody screen (gel) (test code = NEG 890-4) [facility] and [id number] 11:06:00 Test Item Value Reference Range Interpretation Comments ABO grouping (test code = 883-9) B Rh type (test code = 08608-0) POS Antibody screen (gel) (test code = NEG 890-4) [facility] [id number] 11:06:00 Test Item Value Reference Range Interpretation Comments ABO grouping (test code = 883-9) B Rh type (test code = 50383-7) POS Antibody screen (gel) (test code = NEG 890-4) [facility] and [id number] 11:06:00 Test Item Value Reference Range Interpretation Comments ABO grouping (test code = 883-9) B Rh type (test code = 29067-6) POS Antibody screen (gel) (test code = NEG 890-4) [facility] qlfgkf7029-02-26 11:06:00 Test Item Value Reference Range Interpretation Comments ABO grouping (test code = 883-9) B Rh type (test code = 84071-6) POS Antibody screen (gel) (test code = NEG 890-4) [facility] [id number] 11:06:00 Test Item Value Reference Range Interpretation Comments ABO grouping (test code = 883-9) B Rh type (test code = 75635-0) POS Antibody screen (gel) (test code = NEG 890-4) [facility] [Presence] in Respiratory specimen by EMANUEL with probe jjqmdhetj5489-03-17 19:37:44 Test Item Value Reference Range Interpretation Comments SARS-CoV-2 (COVID-19) RNA Not detected Not-Detected [Presence] in Respiratory specimen by EMANUEL with probe detection (test code = 39058-1) 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 InformationSp ecimen code = 23446-1) Source: Tiss ueSpecimen Site: Thigh: in fected right thigh wou nd [facility] qdidgbk6490-98-21 20:18:46 Test Item Value Reference Range Interpretation Comments Tissue culture No growth Specimen isolate (test after 3 days. InformationSp ecimen code = 17328-5) Source: Tiss ueSpecimen Site: Thigh: in fected right thigh wou nd [facility] qvuoosq8736-85-47 20:18:46 Test Item Value Reference Range Interpretation Comments Tissue culture No growth Specimen isolate (test after 3 days. InformationSp ecimen code = 73623-2) Source: Gino Pangimen Site: Thigh: in fected right thigh wou [facility] sketuzr9511-77-92 20:18:46 Test Item Value Reference Range Interpretation Comments Tissue culture No growth Specimen isolate (test after 3 days. InformationSp ecimen code = 01349-2) Source: Gino uBrandieimen Site: Thigh: in fected right thigh wou [facility]2021-12-24 20:18:46 Test Item Value Reference Range Interpretation Comments Tissue culture No growth Specimen isolate (test after 3 days. InformationSp ecimen code = 19170-1) Source: Gino Pangimen Site: Thigh: in fected right thigh wou [facility]2021-12-24 20:18:46 Test Item Value Reference Range Interpretation Comments Tissue culture No growth Specimen isolate (test after 3 days. InformationSp ecimen code = 05195-5) Source: Gino Pangimen Site: Thigh: in fected right thigh wou [facility]2021-12-24 20:18:46 Test Item Value Reference Range Interpretation Comments Tissue culture No growth Specimen isolate (test after 3 days. InformationSp ecimen code = 81100-5) Source: Gino Pangimen Site: Thigh: in fected right thigh wou [facility] [id number] 20:18:46 Test Item Value Reference Range Interpretation Comments Tissue culture No growth Specimen isolate (test after 3 days. InformationSp ecimen code = 01102-5) Source: Gino Pangimen Site: Thigh: in fected right thigh wou [facility] memnblq7888-15-13 20:18:46 Test Item Value Reference Range Interpretation Comments Tissue culture No growth Specimen isolate (test after 3 days. InformationSp ecimen code = 48197-6) Source: Gino Pangimen Site: Thigh: in fected right thigh wou [facility] oksnwhk8492-97-41 20:18:46 Test Item Value Reference Range Interpretation Comments Tissue culture No growth Specimen isolate (test after 3 days. InformationSp ecimen code = 95767-2) Source: Tiss ueSpecimen Site: Thigh: [facility] fected [facility] ctruheu[facility] 20:18:46 Test Item Value Reference Range Interpretation Comments Tissue culture No growth Specimen isolate (test after 3 days. InformationSp ecimen code = 47003-0) Source: Tiss ueSpecimen Site: Thigh: in fected [facility] [id number] 20:24:42 Test Item Value Reference Range Interpretation Comments AFB stain No acid fast Specimen (test code = bacilli (AFB) InformationSpe cimen 676-7) seen. Source: Drainag eSpecimen Site: Thigh: in fected wound right [facility] adglo5208-16-75 20:24:42 Test Item Value Reference Range Interpretation Comments AFB stain No acid fast Specimen (test code = bacilli (AFB) InformationSpe cimen 676-7) seen. Source: Drainag eSpecimen Site: Thigh: [facility] [id number] 20:24:42 Test Item Value Reference Range Interpretation Comments AFB stain No acid fast Specimen (test code = bacilli (AFB) InformationSpe cimen 676-7) seen. Source: Drainag eSpecimen Site: Thigh: [facility]ected [facility] [id number] 20:24:42 Test Item Value Reference Range Interpretation Comments AFB stain No acid fast Specimen (test code = bacilli (AFB) InformationSpe cimen 676-7) seen. Source: Drainag eSpecimen Site: Thigh: [facility]ected wound [facility] [id number] 20:24:42 Test Item Value Reference Range Interpretation Comments AFB stain No acid fast Specimen (test code = bacilli (AFB) InformationSpe cimen 676-7) seen. Source: Drainag eSpecimen Site: Thigh: [facility]ect[facility] [id number] 20:24:42 Test Item Value Reference Range Interpretation Comments AFB stain No acid fast Specimen (test code = bacilli (AFB) InformationSpe cimen 676-7) seen. Source: Drainag eSpecimen Site: Thigh: [facility]ect[facility] [id number] 20:24:42 Test Item Value Reference Range Interpretation Comments AFB stain No acid fast Specimen (test code = bacilli (AFB) InformationSpe cimen 676-7) seen. Source: Drainag eSpecimen Site: Thigh: [facility]ect[facility] sdrid1937-11-07 20:24:42 Test Item Value Reference Range Interpretation Comments AFB stain No acid fast Specimen (test code = bacilli (AFB) InformationSpe cimen 676-7) seen. Source: Drainag eSpecimen Site: Thigh: in fected wound right [facility] blvvs1513-06-01 20:24:42 Test Item Value Reference Range Interpretation Comments AFB stain No acid fast Specimen (test code = bacilli (AFB) InformationSpe cimen 676-7) seen. Source: Drainag eSpecimen Site: Thigh: in fected wound right [facility] [id number] 20:24:42 Test Item Value Reference Range Interpretation Comments AFB stain No acid fast Specimen (test code = bacilli (AFB) InformationSpe cimen 676-7) seen. Source: Drainag eSpecimen Site: Thigh: in fected wound right [facility]2021-12-23 20:24:42 Test Item Value Reference Range Interpretation Comments AFB stain No acid fast Specimen (test code = bacilli (AFB) InformationSpe cimen 676-7) seen. Source: Drainag eSpecimen Site: Thigh: in fected wound right [facility] [id number] 09:49:57 Test Item Value Reference Range Interpretation Comments Urine culture No growth Specimen isolate (test after 24 InformationSpe cimen code = 00496-4) hours Source: Urin eSpecimen Site: Clean cat [facility]2021-12-20 09:49:57 Test Item Value Reference Range Interpretation Comments Urine culture No growth Specimen isolate (test after 24 InformationSpe cimen code = 47488-4) hours Source: Urin eSpecimen Site: Clean cat [facility]2021-12-20 09:49:57 Test Item Value Reference Range Interpretation Comments Urine culture No growth Specimen isolate (test after 24 InformationSpe cimen code = 28000-1) hours Source: Urin eSpecimen Site: [facility]2021-12-20 09:49:57 Test Item Value Reference Range Interpretation Comments Urine culture No growth Specimen isolate (test after 24 InformationSpe cimen code = 50529-5) hours Source: Urin eSpecimen Site: [facility]2021-12-20 09:49:57 Test Item Value Reference Range Interpretation Comments Urine culture No growth Specimen isolate (test after 24 InformationSpe cimen code = 69794-8) hours Source: Urin eSpecimen Site: [facility]2021-12-20 09:49:57 Test Item Value Reference Range Interpretation Comments Urine culture No growth Specimen isolate (test after 24 InformationSpe cimen code = 66941-7) hours Source: in eSpecimen Site: [facility]2021-12-20 09:49:57 Test Item Value Reference Range Interpretation Comments Urine culture No growth Specimen isolate (test after 24 InformationSpe cimen code = 57160-7) hours Source: Urin eSpecimen Site: [facility]2021-12-20 09:49:57 Test Item Value Reference Range Interpretation Comments Urine culture No growth Specimen isolate (test after 24 InformationSpe cimen code = 07107-8) hours Source: Urin eSpecimen Site: [facility]2021-12-20 09:49:57 Test Item Value Reference Range Interpretation Comments Urine culture No growth Specimen isolate (test after 24 InformationSpe cimen code = 63602-8) hours Source: Urin eSpecimen Site: [facility]2021-12-20 09:49:57 Test Item Value Reference Range Interpretation Comments Urine culture No growth Specimen isolate (test after 24 InformationSpe cimen code = 27175-5) hours Source: Urin eSpecimen Site: [facility]2021-12-20 09:49:57 Test Item Value Reference Range Interpretation Comments Urine culture No growth Specimen isolate (test after 24 InformationSpe cimen code = 85930-2) hours Source: Urin eSpecimen Site: [facility] cat [facility] lkqtvqyffemg0429-38-03 12:52:00 Test Item Value Reference Range Interpretation Comments ABO grouping (test code = 883-9) B Rh type (test code = 04080-1) [facility] dzicblqtbjbl5906-92-60 12:52:00 Test Item Value Reference Range Interpretation Comments ABO grouping (test code = 883-9) B Rh type (test code = 38851-1) [facility] fvhqlohxcyml9020-36-89 12:52:00 Test Item Value Reference Range Interpretation Comments ABO grouping (test code = 883-9) B Rh type (test code = 74497-6) [facility] ajnyftonjizw4651-93-25 12:52:00 Test Item Value Reference Range Interpretation Comments ABO grouping (test code = 883-9) B Rh type (test code = 33635-5) [facility] hwktoqwqizko5763-80-25 12:52:00 Test Item Value Reference Range Interpretation Comments ABO grouping (test code = 883-9) B Rh type (test code = 67569-1) [facility] tyezlpaknocn7465-36-64 12:52:00 Test Item Value Reference Range Interpretation Comments ABO grouping (test code = 883-9) B Rh type (test code = 61623-0) [facility] zoznejqnqrfo1277-09-55 12:52:00 Test Item Value Reference Range Interpretation Comments ABO grouping (test code = 883-9) B Rh type (test code = 44317-5) [facility] qgoxlujtdooo1012-72-56 12:52:00 Test Item Value Reference Range Interpretation Comments ABO grouping (test code = 883-9) B Rh type (test code = 17687-7) [facility] uhlrrdfsvini1663-82-62 12:52:00 Test Item Value Reference Range Interpretation Comments ABO grouping (test code = 883-9) B Rh type (test code = 74232-3) [facility] yopmndqnukno3514-53-73 12:52:00 Test Item Value Reference Range Interpretation Comments ABO grouping (test code = 883-9) B Rh type (test code = 12904-7) [facility] krkmcfzjjhqg5235-17-66 12:52:00 Test Item Value Reference Range Interpretation Comments ABO grouping (test code = 883-9) B Rh type (test code = 44360-7) [facility] [Presence] in Respiratory specimen by EMANUEL with probe ridfopmzb3671-31-35 03:04:32 Test Item Value Reference Range Interpretation Comments SARS-CoV-2 (COVID-19) RNA Not detected Not-Detected [Presence] in Respiratory specimen by EMANUEL with probe detection (test code = 78397-5) 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 (test 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 = 07871-2) Whether the patient has symptoms related to condition of interest (test code = 27875-1) Patient was hospitalized because of this condition (test code = 47731-4) Whether the patient was admitted to intensive care unit (ICU) for condition of interest (test code = 29125-8) Whether patient resides in a congregate care setting (test code = 31887-0) [facility], 1 Upcqk8801-11-08 22:22:00 Test Item Value Reference Range Interpretation Comments Product name (test code Red Blood Cells -1, = 25) Leukored Unit number (test code = [id number]) Product code (test code H3023D39 = 3092) Dispense status (test Transfused code = 24) Blood expiration date (test code = 302) Blood type code (test code = 308) Blood type (test code = B POSITIVE 1314) Compatibility (test code Compatible = 6400) [facility] Ymbzy6763-64-12 22:22:00 Test Item Value Reference Range Interpretation Comments Product name (test code Red Blood Cells -1, = 25) Leukored Unit number (test code = [id number] 6432071) Product code (test code Z7146X66 = 3092) Dispense status (test Transfused code = 24) Blood expiration date (test code = 302) Blood type code (test code = 308) Blood type (test code = B POSITIVE 1314) Compatibility (test code Compatible = 6400) [facility] [place] [facility] RBC, 1 Fzlir1536-97-43 22:22:00 Test Item Value Reference Range Interpretation Comments Product name (test code Red Blood Cells -1, = 25) Leukored Unit number (test code = [id number]) Product code (test code Q7921J47 = 3092) Dispense status (test Transfused code = 24) Blood expiration date (test code = 302) Blood type code (test code = 308) Blood type (test code = B POSITIVE 1314) Compatibility (test code Compatible = 6400) [facility], [facility] Boikv3958-80-88 22:22:00 Test Item Value Reference Range Interpretation Comments Product name (test code Red Blood Cells -1, = 25) Leukored Unit number (test code = [id number] 6895531) Product code (test code F3505H74 = 3092) Dispense status (test Transfused code = 24) Blood expiration date (test code = 302) Blood type code (test code = 308) Blood type (test code = B POSITIVE 1314) Compatibility (test code Compatible = 6400) [facility], 1 Azxcv3397-43-66 22:22:00 Test Item Value Reference Range Interpretation Comments Product name (test code Red Blood Cells -1, = 25) Leukored Unit number (test code = [id number]) Product code (test code S8419T14 = 3092) Dispense status (test Transfused code = 24) Blood expiration date (test code = 302) Blood type code (test code = 308) Blood type (test code = B POSITIVE 1314) Compatibility (test code Compatible = 6400) [facility], 1 Xhvpi7270-31-22 22:22:00 Test Item Value Reference Range Interpretation Comments Product name (test code Red Blood Cells -1, = 25) Leukored Unit number (test code = [id number] 9593758) Product code (test code E8453T49 = 3092) Dispense status (test Transfused code = 24) Blood expiration date (test code = 302) Blood type code (test code = 308) Blood type (test code = B POSITIVE 1314) Compatibility (test code Compatible = 6400) [facility], 1 Eywcx1899-08-99 22:22:00 Test Item Value Reference Range Interpretation Comments Product name (test code Red Blood Cells -1, = 25) Leukored Unit number (test code = [id number] 8410155) Product code (test code F2395A95 = 3092) Dispense status (test Transfused code = 24) Blood expiration date (test code = 302) Blood type code (test code = 308) Blood type (test code = B POSITIVE 1314) Compatibility (test code Compatible = 6400) [facility] RBC, 1 Nkbmr8325-12-45 22:22:00 Test Item Value Reference Range Interpretation Comments Product name (test code Red Blood Cells -1, = 25) Leukored Unit number (test code = [id number] 1230146) Product code (test code F8856P78 = 3092) Dispense status (test Transfused code = 24) Blood expiration date (test code = 302) Blood type code (test code = 308) Blood type (test code = B POSITIVE 1314) Compatibility (test code Compatible = 6400) [facility] [place] [facility] RBC, 1 Kqtrb8329-75-20 22:22:00 Test Item Value Reference Range Interpretation Comments Product name (test code Red Blood Cells -1, = 25) Leukored Unit number (test code = [id number] 0908064) Product code (test code E4245Q42 = 3092) Dispense status (test Transfused code = 24) Blood expiration date (test code = 302) Blood type code (test code = 308) Blood type (test code = B POSITIVE 1314) Compatibility (test code Compatible = 6400) [facility] RBC, 1 Yqykk7255-84-28 22:22:00 Test Item Value Reference Range Interpretation Comments Product name (test code Red Blood Cells -1, = 25) Leukored Unit number (test code = [id number] 2290491) Product code (test code O8241Z95 = 3092) Dispense status (test Transfused code = 24) Blood expiration date (test code = 302) Blood type code (test code = 308) Blood type (test code = B POSITIVE 1314) Compatibility (test code Compatible = 6400) [facility] urecpvq1458-81-60 20:10:46 Test Item Value Reference Range Interpretation Comments Case number (test code = [id number]) Surgical pathology See link below for report (test code = PDF Lab Report 2255) Result status (test code This is Final Report = [id number]) for [address] pathology dbpkqez3566-14-25 20:10:46 Test Item Value Reference Range Interpretation Comments Case number (test code = [id number]) Surgical pathology See link below for report (test code = PDF Lab Report 2255) Result status (test code This is Final Report = [id number]) for [address] pathology lebrgmk7820-93-99 20:10:46 Test Item Value Reference Range Interpretation Comments Case number (test code = [id number]) Surgical pathology See link below for report (test code = PDF Lab Report 2255) Result status (test code This is Final Report = [id number]) for [address] pathology nhxgltq4653-52-61 20:10:46 Test Item Value Reference Range Interpretation Comments Case number (test code = [id number]) Surgical pathology See link below for report (test code = PDF Lab Report 2255) Result status (test code This is Final Report = [id number]) for [address] pathology ygfkiwg6683-63-44 20:10:46 Test Item Value Reference Range Interpretation Comments Case number (test code = [id number]) Surgical pathology See link below for report (test code = PDF Lab Report 2255) Result status (test code This is Final Report = [id number]) for [address] pathology qkonbqr2539-00-89 20:10:46 Test Item Value Reference Range Interpretation Comments Case number (test code = [id number]) Surgical pathology See link below for report (test code = PDF Lab Report 2255) Result status (test code This is Final Report = [id number]) for [address] pathology jkrmcbx4633-00-78 20:10:46 Test Item Value Reference Range Interpretation Comments Case number (test code = [id number]) Surgical pathology See link below for report (test code = PDF Lab Report 2255) Result status (test code This is Final Report = [id number]) for [id number] [place] [address] pathology scxqctj9487-94-60 20:10:46 Test Item Value Reference Range Interpretation Comments Case number (test code = [id number]) Surgical pathology See link below for report (test code = PDF Lab Report 2255) Result status (test code This is Final Report = [id number]) for [address] pathology qtbrtyq6953-33-18 20:10:46 Test Item Value Reference Range Interpretation Comments Case number (test code = [id number]) Surgical pathology See link below for report (test code = PDF Lab Report 2255) Result status (test code This is Final Report = [id number]) for [address] pathology ixyjjzm1018-46-07 20:10:46 Test Item Value Reference Range Interpretation Comments Case number (test code = [id number]) Surgical pathology See link below for report (test code = PDF Lab Report 225) Result status (test code This is Final Report = [id number]) [address] [facility] pheresis, 1 Rwshk9215-28-02 15:35:00 Test Item Value Reference Range Interpretation Comments Product name (test code Platerick Henleyh LR, Path = 25) Red cont3 Unit number (test code = [id number] 4104089) Product code (test code Q3702K54 = 3092) Dispense status (test Transfused code = 24) Blood expiration date (test code = 302) Blood type code (test code = 308) Blood type (test code = O POSITIVE 1314) Compatibility (test code Not required = 6400) [facility], 1 Ilmfq5508-81-02 15:35:00 Test Item Value Reference Range Interpretation Comments Product name (test code Platerick tAph LR, Path = 25) Red cont3 Unit number (test code = [id number] 9570557) Product code (test code J6407W10 = 3092) Dispense status (test Transfused code = 24) Blood expiration date (test code = 302) Blood type code (test code = 308) Blood type (test code = O POSITIVE 1314) Compatibility (test code Not required = 6400) [facility] 1 Hhmno5946-89-11 15:35:00 Test Item Value Reference Range Interpretation Comments Product name (test code Platerick tApgina LR, Path = 25) Red cont3 Unit number (test code = [id number] 9081389) Product code (test code W4979K50 = 3092) Dispense status (test Transfused code = 24) Blood expiration date (test code = 302) Blood type code (test code = 308) Blood type (test code = O POSITIVE 1314) Compatibility (test code Not required = 6400) [facility], 1 Qanft4182-48-80 15:35:00 Test Item Value Reference Range Interpretation Comments Product name (test code Platerick Fraire LR, Path = 25) Red cont3 Unit number (test code = [id number] 2300083) Product code (test code B9365G65 = 3092) Dispense status (test Transfused code = 24) Blood expiration date (test code = 302) Blood type code (test code = 308) Blood type (test code = O POSITIVE 1314) Compatibility (test code Not required = 6400) [facility], 1 Wfuau2774-68-69 15:35:00 Test Item Value Reference Range Interpretation Comments Product name (test code Platerick Fraire LR, Path = 25) Red cont3 Unit number (test code = [id number] 7026470) Product code (test code K9573U06 = 3092) Dispense status (test Transfused code = 24) Blood expiration date (test code = 302) Blood type code (test code = 308) Blood type (test code = O POSITIVE 1314) Compatibility (test code Not required = 6400) [facility], 1 Tqazt9029-40-01 15:35:00 Test Item Value Reference Range Interpretation Comments Product name (test code Platerick tApgina LR, Path = 25) Red cont3 Unit number (test code = [id number]) Product code (test code R9020L78 = 3092) Dispense status (test Transfused code = 24) Blood expiration date (test code = 302) Blood type code (test code = 308) Blood type (test code = O POSITIVE 1314) Compatibility (test code Not required = 6400) [facility], 1 Knbie1825-52-40 15:35:00 Test Item Value Reference Range Interpretation Comments Product name (test code Bogdan Fraire LR, Path = 25) Red cont3 Unit number (test code = [id number] 0185598) Product code (test code B3417X13 = 3092) Dispense status (test Transfused code = 24) Blood expiration date (test code = 302) Blood type code (test code = 308) Blood type (test code = O POSITIVE 1314) Compatibility (test code Not required = 6400) [facility], 1 Atuje6448-36-66 15:35:00 Test Item Value Reference Range Interpretation Comments Product name (test code Bogdan Fraire LR, Path = 25) Red cont3 Unit number (test code = [id number] 8689723) Product code (test code O3595T95 = 3092) Dispense status (test Transfused code = 24) Blood expiration date (test code = 302) Blood type code (test code = 308) Blood type (test code = O POSITIVE 1314) Compatibility (test code Not required = 6400) [facility], 1 Mkoob2742-33-43 15:35:00 Test Item Value Reference Range Interpretation Comments Product name (test code Bogdan Fraire LR, Path = 25) Red cont3 Unit number (test code = [id number]) Product code (test code F0499D20 = 3092) Dispense status (test Transfused code = 24) Blood expiration date (test code = 302) Blood type code (test code = 308) Blood type (test code = O POSITIVE 1314) Compatibility (test code Not required = 6400) [facility] 1 [id number] 15:35:00 Test Item Value Reference Range Interpretation Comments Product name (test code Platerick Fraire LR, Path = 25) Red cont3 Unit number (test code = [id number]) Product code (test code S3506Q03 = 3092) Dispense status (test Transfused code = 24) Blood expiration date (test code = 302) Blood type code (test code = 308) Blood type (test code = O POSITIVE 1314) Compatibility (test code Not required = 6400) [facility] [id number] 12:13:24 Test Item Value Reference Range Interpretation Comments Activated clotting time See_Comment H Oper ator Name: (test code = 5298) Bryn Denny norbertoeaDevice ID: [id number] [Automated mess age] The system whic h generated this result transmitted ref erence range: 96 - 152 sec. The reference r leo was not used to interpret this result as normal/abnor mal. Lab Interpretation (test Abnormal code = 60102-1) [facility] [id number] 12:13:24 Test Item Value Reference Range Interpretation Comments Activated clotting time See_Comment H Oper ator Name: (test code = 5298) Bryn Denny eneaDevice ID: [id number] [Automated mess age] The system [employer] h generated this result transmitted ref erence range: 96 - 152 sec. The reference r leo was not used to interpret this result as normal/abnor mal. Lab Interpretation (test Abnormal code = 52937-3) [facility] [id number] 12:13:24 Test Item Value Reference Range Interpretation Comments Activated clotting time See_Comment H Oper ator Name: (test code = 5298) Bryn Denny norbertoeaDevice ID: [id number] [Automated mess age] The system [employer] h generated this result transmitted ref erence range: 96 - 152 sec. The reference r leo was not used to interpret this result as normal/abnor mal. Lab Interpretation (test Abnormal code = 78544-2) [facility] [id number] 12:13:24 Test Item Value Reference Range Interpretation Comments Activated clotting time See_Comment H Oper ator Name: (test code = 5298) Bryn Denny eneaDevice ID: [id number] [Automated mess age] The system whic h generated this result transmitted ref erence range: 96 - 152 sec. The reference r leo was not used to interpret this result as normal/abnor mal. Lab Interpretation (test Abnormal code = 15223-3) [facility] [id number] 12:13:24 Test Item Value Reference Range Interpretation Comments Activated clotting time See_Comment H Oper ator Name: (test code = 5298) Bryn R eneaDevice ID: [id number] [Automated mess age] The system [employer] h generated this result transmitted ref erence range: 96 - 152 sec. The reference r leo was not used to interpret this result as normal/abnor mal. Lab Interpretation (test Abnormal code = 55957-6) [facility] [id number] 12:13:24 Test Item Value Reference Range Interpretation Comments Activated clotting time See_Comment H Oper ator Name: (test code = 5298) Bryn R eneaDevice ID: [id number] [Automated mess age] The system [employer] generated this result transmitted ref erence range: 96 - 152 sec. The reference r leo was not used to interpret this result as normal/abnor mal. Lab Interpretation (test Abnormal code = 62528-0) [facility] [id number] 12:13:24 Test Item Value Reference Range Interpretation Comments Activated clotting time See_Comment H Oper ator Name: (test code = 5298) Bryn R eneaDevice ID: [id number] [Automated mess age] The system [employer] generated this result transmitted ref erence range: 96 - 152 sec. The reference r leo was not used to interpret this result as normal/abnor mal. Lab Interpretation (test Abnormal code = 38689-1) [facility] [id number] 12:13:24 Test Item Value Reference Range Interpretation Comments Activated clotting time See_Comment H Oper ator Name: (test code = 5298) Bryn R eneaDevice ID: [id number] [Automated mess age] The system [employer] generated this result transmitted ref erence range: 96 - 152 sec. The reference r leo was not used to interpret this result as normal/abnor mal. Lab Interpretation (test Abnormal code = 04295-1) [facility] [id number] 12:13:24 Test Item Value Reference Range Interpretation Comments Activated clotting time See_Comment H Oper ator Name: (test code = 5298) Bryn Sj eneaDevice ID: [id number] [Automated mess age] The system [employer] generated this result transmitted ref erence range: 96 - 152 sec. The reference r leo was not used to interpret this result as normal/abnor mal. Lab Interpretation (test Abnormal code = 81583-5) [facility] [id number] 12:13:24 Test Item Value Reference Range Interpretation Comments Activated clotting time See_Comment H Oper ator Name: (test code = 5298) Bryn Denny Carmen ID: [id number] [Automated mess age] The system [employer] generated this result transmitted ref erence range: 96 - 152 sec. The reference r leo was not used to interpret this result as normal/abnor mal. Lab Interpretation (test Abnormal code = 98716-1) [facility] [id number] 14:37:48 Test Item Value Reference Range Interpretation Comments POC sodium (test code = 138 mmol/L 448-973 6439-0) POC potassium (test 5.5 mmol/L 3.5-5 H code = 6298-4) POC glucose (test code 295 mg/dL 65-99 H = 2339-0) POC creatinine (test 5.3 mg/dl 0.5-0.9 H Operato r Name: Pugne code = 64961-5) AilWinstone ID: [id number] POC hemoglobin (test 18.4 g/dL 12-16 H code = 718-7) POC hematocrit (test 54 % 37-47 H code = 4544-3) Lab Interpretation Abnormal (test code = 69620-1) [facility] [id number] 14:37:48 Test Item Value Reference Range Interpretation Comments POC sodium (test code = 138 mmol/L 022-273 3860-0) POC potassium (test 5.5 mmol/L 3.5-5 H code = 6298-4) POC glucose (test code 295 mg/dL 65-99 H = 2339-0) POC creatinine (test 5.3 mg/dl 0.5-0.9 H Operato r Name: Pugne code = 96985-4) AileenDevice ID: [id number] POC hemoglobin (test 18.4 g/dL 12-16 H code = 718-7) POC hematocrit (test 54 % 37-47 H code = 4544-3) Lab Interpretation Abnormal (test code = 96714-6) [facility]2021-11-29 14:37:48 Test Item Value Reference Range Interpretation Comments POC sodium (test code = 138 mmol/L 787-897 8572-0) POC potassium (test 5.5 mmol/L 3.5-5 H code = 6298-4) POC glucose (test code 295 mg/dL 65-99 H = 2339-0) POC creatinine (test 5.3 mg/dl 0.5-0.9 H Operato r Name: Pugne code = 18004-4) AileenDevice ID: [id number] POC hemoglobin (test 18.4 g/dL 12-16 H code = 718-7) POC hematocrit (test 54 % 37-47 H code = 4544-3) Lab Interpretation Abnormal (test code = 93436-5) [facility]2021-11-29 14:37:48 Test Item Value Reference Range Interpretation Comments POC sodium (test code = 138 mmol/L 894-990 2079-0) POC potassium (test 5.5 mmol/L 3.5-5 H code = 6298-4) POC glucose (test code 295 mg/dL 65-99 H = 2339-0) POC creatinine (test 5.3 mg/dl 0.5-0.9 H Operato r Name: Pugne code = 22533-2) AileenDevice ID: [id number] POC hemoglobin (test 18.4 g/dL 12-16 H code = 718-7) POC hematocrit (test 54 % 37-47 H code = 4544-3) Lab Interpretation Abnormal (test code = 00447-3) [place] 605931-11-29 14:37:48 Test Item Value Reference Range Interpretation Comments POC sodium (test code = 138 mmol/L 669-091 2495-0) POC potassium (test 5.5 mmol/L 3.5-5 H code = 6298-4) POC glucose (test code 295 mg/dL 65-99 H = 2339-0) POC creatinine (test 5.3 mg/dl 0.5-0.9 H Operato r Name: Pugne code = 02398-6) AileenDevice ID: [id number] POC hemoglobin (test 18.4 g/dL 12-16 H code = 718-7) POC hematocrit (test 54 % 37-47 H code = 4544-3) Lab Interpretation Abnormal (test code = 93191-2) [facility]2021-11-29 14:37:48 Test Item Value Reference Range Interpretation Comments POC sodium (test code = 138 mmol/L 947-864 9103-0) POC potassium (test 5.5 mmol/L 3.5-5.0 H code = 6298-4) POC glucose (test code 295 mg/dL 65-99 H = 2339-0) POC creatinine (test 5.3 mg/dl 0.5-0.9 H Operato r Name: Johannae code = 41029-6) AiljoshDevice ID: [id number] POC hemoglobin (test 18.4 g/dL 12.0-16.0 H code = 718-7) POC hematocrit (test 54 % 37-47 H code = 4544-3) Lab Interpretation Abnormal (test code = 26716-2) [facility]2021-11-29 14:37:48 Test Item Value Reference Range Interpretation Comments POC sodium (test code = 138 mmol/L 646-329 4980-0) POC potassium (test 5.5 mmol/L 3.5-5.0 H code = 6298-4) POC glucose (test code 295 mg/dL 65-99 H = 2339-0) POC creatinine (test 5.3 mg/dl 0.5-0.9 H Operato r Name: Johannae code = 66372-5) AiljoshDevice ID: [id number] POC hemoglobin (test 18.4 g/dL 12.0-16.0 H code = 718-7) POC hematocrit (test 54 % 37-47 H code = 4544-3) Lab Interpretation Abnormal (test code = 89876-0) [facility]2021-11-29 14:37:48 Test Item Value Reference Range Interpretation Comments POC sodium (test code = 138 mmol/L 046-039 6344-0) POC potassium (test 5.5 mmol/L 3.5-5 H code = 6298-4) POC glucose (test code 295 mg/dL 65-99 H = 2339-0) POC creatinine (test 5.3 mg/dl 0.5-0.9 H Operato r Name: Pugne code = 15741-0) AileenDevice ID: [id number] POC hemoglobin (test 18.4 g/dL 12-16 H code = 718-7) POC hematocrit (test 54 % 37-47 H code = 4544-3) Lab Interpretation Abnormal (test code = 35516-9) [facility] [id number] 14:37:48 Test Item Value Reference Range Interpretation Comments POC sodium (test code = 138 mmol/L 979-449 5414-0) POC potassium (test 5.5 mmol/L 3.5-5 H code = 6298-4) POC glucose (test code 295 mg/dL 65-99 H = 2339-0) POC creatinine (test 5.3 mg/dl 0.5-0.9 H Operato r Name: Johannae code = 52578-9) AileenDevice ID: [id number] POC hemoglobin (test 18.4 g/dL 12-16 H code = 718-7) POC hematocrit (test 54 % 37-47 H code = 4544-3) Lab Interpretation Abnormal (test code = 59535-8) [facility] [id number] 14:37:48 Test Item Value Reference Range Interpretation Comments POC sodium (test code = 138 mmol/L 320-583 5523-0) POC potassium (test 5.5 mmol/L 3.5-5 H code = 6298-4) POC glucose (test code 295 mg/dL 65-99 H = 2339-0) POC creatinine (test 5.3 mg/dl 0.5-0.9 H Operato r Name: Johannae code = 49645-8) AileenDevice ID: [id number] POC hemoglobin (test 18.4 g/dL 12-16 H code = 718-7) POC hematocrit (test 54 % 37-47 H code = 4544-3) Lab Interpretation Abnormal (test code = 57367-9) [facility] [Presence] in Respiratory specimen by EMANUEL with probe [id number] 07:53:49 Test Item Value Reference Range Interpretation Comments SARS-CoV-2 (COVID-19) RNA Not detected Not-Detected [Presence] in Respiratory specimen by EMANUEL with probe detection (test code = 00070-8) 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 (test code = 90838-4) Whether the patient has symptoms related to condition of interest (test code = 04319-1) Patient was hospitalized because of this condition (test code = 23632-4) Whether the patient was admitted to intensive care unit (ICU) for condition of interest (test code = 59279-6) Whether patient resides in a congregate care setting (test code = 87751-6) [facility]2021-08-11 08:17:00 Test Item Value Reference Range Interpretation Comments Glucose Lvl (test code = Glucose Lvl) 94 70-99 [facility]2021-08-11 08:17:00 Test Item Value Reference Range Interpretation Comments BUN (test code = BUN) 27 7-22 [place] 912791-08-11 08:17:00 Test Item Value Reference Range Interpretation Comments Creatinine Lvl (test code = Creatinine 4.95 0.50-1.40 Lvl) [place] 912791-08-11 08:17:00 Test Item Value Reference Range Interpretation Comments Sodium Lvl (test code = Sodium Lvl) 136 135-145 [place] 912791-08-11 08:17:00 Test Item Value Reference Range Interpretation Comments Potassium Lvl (test code = Potassium 3.9 3.5-5.1 Lvl) [place] 912791-08-11 08:17:00 Test Item Value Reference Range Interpretation Comments Chloride Lvl (test code = Chloride Lvl) 103 95-109 [place] 912791-08-11 08:17:00 Test Item Value Reference Range Interpretation Comments CO2 (test code = CO2) 30 24-32 [place] 912791-08-11 08:17:00 Test Item Value Reference Range Interpretation Comments AGAP (test code = AGAP) 6.9 10.0-20.0 [place] 912791-08-11 08:17:00 Test Item Value Reference Range Interpretation Comments Calcium Lvl (test code = Calcium Lvl) 8.5 8.5-10.5 [place] 912791-08-11 08:17:00 Test Item Value Reference Range Interpretation Comments eGFR (test code = eGFR) 10 [facility] [id number] 08:17:00 Test Item Value Reference Range Interpretation Comments Phosphorus (test code = Phosphorus) 3.0 2.5-4.5 [facility] [id number] 08:17:00 Test Item Value Reference Range Interpretation Comments Magnesium Lvl (test code = Magnesium 2.4 1.8-2.4 Lvl) [facility] StationIcfuxkxYPNAUTHWFC3200-38-45 08:17:00 Test Item Value Reference Range Interpretation Comments WBC (test code = WBC) 2.3 3.7-10.4 [place] 008731-08-11 08:17:00 Test Item Value Reference Range Interpretation Comments RBC (test code = RBC) 2.65 4.20-5.40 [place] 008731-08-11 08:17:00 Test Item Value Reference Range Interpretation Comments Hgb (test code = Hgb) 7.9 12.0-16.0 [place] 008731-08-11 08:17:00 Test Item Value Reference Range Interpretation Comments Hct (test code = Hct) 24.0 36.0-48.0 [facility] StationMfcmdefFJPKRMADCY0480-55-71 08:17:00 Test Item Value Reference Range Interpretation Comments MCV (test code = MCV) 90.6 80.0-98.0 [facility] StationQmhazjjPVTITLAHGQ2961-60-49 08:17:00 Test Item Value Reference Range Interpretation Comments MCH (test code = MCH) 29.7 pg 27.0-31.0 [place] 008731-08-11 08:17:00 Test Item Value Reference Range Interpretation Comments MCHC (test code = MCHC) 32.7 32.0-36.0 [place] 008731-08-11 08:17:00 Test Item Value Reference Range Interpretation Comments RDW (test code = RDW) 19.1 11.5-14.5 [place] 008731-08-11 08:17:00 Test Item Value Reference Range Interpretation Comments Platelet (test code = Platelet) 71 133-450 [place] 008731-08-11 08:17:00 Test Item Value Reference Range Interpretation Comments MPV (test code = MPV) 9.9 7.4-10.4 [place] 008731-08-11 08:17:00 Test Item Value Reference Range Interpretation Comments Segs (test code = Segs) 56.1 45.0-75.0 [place] 008731-08-11 08:17:00 Test Item Value Reference Range Interpretation Comments Lymphocytes (test code = Lymphocytes) 28.9 20.0-40.0 [place] 008731-08-11 08:17:00 Test Item Value Reference Range Interpretation Comments Monocytes (test code = Monocytes) 8.1 2.0-12.0 [place] 008731-08-11 08:17:00 Test Item Value Reference Range Interpretation Comments Eosinophils (test code = 5.9 See_Comment [A utomated message] The Eosinophils) system which ge nerated this result tra nsmitted reference range : <=4.0. The reference r leo was not used to int erpret this result as normal/abnormal . [place] 008731-08-11 08:17:00 Test Item Value Reference Range Interpretation Comments Basophils (test code = 1.0 See_Comment [Aut omated message] The Basophils) system which ge nerated this result tra nsmitted reference range : <=1.0. The reference r leo was not used to int erpret this result as normal/abnormal . [facility] StationZvapeonPWKIPXAJOM8777-99-07 08:17:00 Test Item Value Reference Range Interpretation Comments Neutrophils # (test code = Neutrophils 1.3 1.5-8.1 #) [facility] StationXorulalMTOCMCDRGC4246-90-34 08:17:00 Test Item Value Reference Range Interpretation Comments Lymphocytes # (test code = Lymphocytes 0.7 1.0-5.5 #) [place] 008731-08-11 08:17:00 Test Item Value Reference Range Interpretation Comments Monocytes # (test code 0.2 See_Comment [Aut omated message] The = Monocytes #) system which generated this result tra nsmitted reference range : <=0.8. The reference r leo was not used to int erpret this result as normal/abnormal . [facility] StationBcxqszrJJCUYOQQLM7541-46-34 08:17:00 Test Item Value Reference Range Interpretation Comments Eosinophils # (test code 0.1 See_Comment [A utomated message] The = Eosinophils #) system whic h generated this result tra nsmitted reference range : <=0.5. The reference r leo was not used to int erpret this result as normal/abnormal . [place] 912791-08-11 08:17:00 Test Item Value Reference Range Interpretation Comments Glucose Lvl (test code = Glucose Lvl) 94 70-99 [place] 912791-08-11 08:17:00 Test Item Value Reference Range Interpretation Comments BUN (test code = BUN) 27 7-22 [place] 912791-08-11 08:17:00 Test Item Value Reference Range Interpretation Comments Creatinine Lvl (test code = Creatinine 4.95 0.50-1.40 Lvl) [place] 912791-08-11 08:17:00 Test Item Value Reference Range Interpretation Comments Sodium Lvl (test code = Sodium Lvl) 136 135-145 [place] 912791-08-11 08:17:00 Test Item Value Reference Range Interpretation Comments Potassium Lvl (test code = Potassium 3.9 3.5-5.1 Lvl) [facility]2021-08-11 08:17:00 Test Item Value Reference Range Interpretation Comments Chloride Lvl (test code = Chloride Lvl) 103 95-109 [place] 912791-08-11 08:17:00 Test Item Value Reference Range Interpretation Comments CO2 (test code = CO2) 30 24-32 [place] 912791-08-11 08:17:00 Test Item Value Reference Range Interpretation Comments AGAP (test code = AGAP) 6.9 10.0-20.0 [place] 912791-08-11 08:17:00 Test Item Value Reference Range Interpretation Comments Calcium Lvl (test code = Calcium Lvl) 8.5 8.5-10.5 [place] 912791-08-11 08:17:00 Test Item Value Reference Range Interpretation Comments eGFR (test code = eGFR) 10 [place] 912791-08-11 08:17:00 Test Item Value Reference Range Interpretation Comments Phosphorus (test code = Phosphorus) 3.0 2.5-4.5 [place] 912791-08-11 08:17:00 Test Item Value Reference Range Interpretation Comments Magnesium Lvl (test code = Magnesium 2.4 1.8-2.4 Lvl) [facility] StationMjscbutZDEBMERVOM6080-67-65 08:17:00 Test Item Value Reference Range Interpretation Comments WBC (test code = WBC) 2.3 3.7-10.4 [facility] StationTjpwhxdTHYAMBZLZG8316-92-43 08:17:00 Test Item Value Reference Range Interpretation Comments RBC (test code = RBC) 2.65 4.20-5.40 [facility] StationCyfsmswXWCRMDOCFH3551-05-73 08:17:00 Test Item Value Reference Range Interpretation Comments Hgb (test code = Hgb) 7.9 12.0-16.0 [facility] StationZjblpxwIMIZMVXIJB5343-58-55 08:17:00 Test Item Value Reference Range Interpretation Comments Hct (test code = Hct) 24.0 36.0-48.0 [facility] StationSbxmcqgOVJQHZJGZU6910-40-56 08:17:00 Test Item Value Reference Range Interpretation Comments MCV (test code = MCV) 90.6 80.0-98.0 [facility] StationCekniopXACMHLSMZG5877-31-25 08:17:00 Test Item Value Reference Range Interpretation Comments MCH (test code = MCH) 29.7 pg 27.0-31.0 [facility] StationXsjihesSBHNBFXVOJ1014-29-35 08:17:00 Test Item Value Reference Range Interpretation Comments MCHC (test code = MCHC) 32.7 32.0-36.0 [facility] StationRoceinkYHYZOQZUUN0961-83-80 08:17:00 Test Item Value Reference Range Interpretation Comments RDW (test code = RDW) 19.1 11.5-14.5 [facility] StationZaeqddeGYFDAQEUEF1369-46-95 08:17:00 Test Item Value Reference Range Interpretation Comments Platelet (test code = Platelet) 71 133-450 [facility] StationVllkskdJGBCEAHGDH0676-77-82 08:17:00 Test Item Value Reference Range Interpretation Comments MPV (test code = MPV) 9.9 7.4-10.4 [facility] StationYwtbloyZDVRWYHSIA8558-80-63 08:17:00 Test Item Value Reference Range Interpretation Comments Segs (test code = Segs) 56.1 45.0-75.0 [facility] StationIpesnxwWTCGUHEYAK1452-75-14 08:17:00 Test Item Value Reference Range Interpretation Comments Lymphocytes (test code = Lymphocytes) 28.9 20.0-40.0 [facility] StationOuhvtneOTCECKPSDR1154-63-91 08:17:00 Test Item Value Reference Range Interpretation Comments Monocytes (test code = Monocytes) 8.1 2.0-12.0 [place] 008731-08-11 08:17:00 Test Item Value Reference Range Interpretation Comments Eosinophils (test code = 5.9 See_Comment [A utomated message] The Eosinophils) system which ge nerated this result tra nsmitted reference range : <=4.0. The reference r leo was not used to int erpret this result as normal/abnormal . [place] 008731-08-11 08:17:00 Test Item Value Reference Range Interpretation Comments Basophils (test code = 1.0 See_Comment [Aut omated message] The Basophils) system which ge nerated this result tra nsmitted reference range : <=1.0. The reference r leo was not used to int erpret this result as normal/abnormal . [place] 008731-08-11 08:17:00 Test Item Value Reference Range Interpretation Comments Neutrophils # (test code = Neutrophils 1.3 1.5-8.1 #) [place] 008731-08-11 08:17:00 Test Item Value Reference Range Interpretation Comments Lymphocytes # (test code = Lymphocytes 0.7 1.0-5.5 #) [place] 008731-08-11 08:17:00 Test Item Value Reference Range Interpretation Comments Monocytes # (test code 0.2 See_Comment [Aut omated message] The = Monocytes #) system which generated this result tra nsmitted reference range : <=0.8. The reference r leo was not used to int erpret this result as normal/abnormal . [facility] StationCikqukrTWGYMZWIVI0640-48-07 08:17:00 Test Item Value Reference Range Interpretation Comments Eosinophils # (test code 0.1 See_Comment [A utomated message] The = Eosinophils #) system whic h generated this result tra nsmitted reference range : <=0.5. The reference r leo was not used to int erpret this result as normal/abnormal . [facility] DNMNE7939-78-12 08:17:00 Test Item Value Reference Range Interpretation Comments Glucose Lvl (test code = Glucose Lvl) 94 70-99 [facility] KOLMM4198-15-52 08:17:00 Test Item Value Reference Range Interpretation Comments BUN (test code = BUN) 27 7-22 [place] 912791-08-11 08:17:00 Test Item Value Reference Range Interpretation Comments Creatinine Lvl (test code = Creatinine 4.95 0.50-1.40 Lvl) [place] 912791-08-11 08:17:00 Test Item Value Reference Range Interpretation Comments Sodium Lvl (test code = Sodium Lvl) 136 135-145 [place] 912791-08-11 08:17:00 Test Item Value Reference Range Interpretation Comments Potassium Lvl (test code = Potassium 3.9 3.5-5.1 Lvl) [place] 912791-08-11 08:17:00 Test Item Value Reference Range Interpretation Comments Chloride Lvl (test code = Chloride Lvl) 103 95-109 [place] 912791-08-11 08:17:00 Test Item Value Reference Range Interpretation Comments CO2 (test code = CO2) 30 24-32 [place] 912791-08-11 08:17:00 Test Item Value Reference Range Interpretation Comments AGAP (test code = AGAP) 6.9 10.0-20.0 [place] 912791-08-11 08:17:00 Test Item Value Reference Range Interpretation Comments Calcium Lvl (test code = Calcium Lvl) 8.5 8.5-10.5 [place] 912791-08-11 08:17:00 Test Item Value Reference Range Interpretation Comments eGFR (test code = eGFR) 10 [place] [id number] 08:17:00 Test Item Value Reference Range Interpretation Comments Phosphorus (test code = Phosphorus) 3.0 2.5-4.5 [place] 912791-08-11 08:17:00 Test Item Value Reference Range Interpretation Comments Magnesium Lvl (test code = Magnesium 2.4 1.8-2.4 Lvl) [place] 008731-08-11 08:17:00 Test Item Value Reference Range Interpretation Comments WBC (test code = WBC) 2.3 3.7-10.4 [place] 008731-08-11 08:17:00 Test Item Value Reference Range Interpretation Comments RBC (test code = RBC) 2.65 4.20-5.40 [place] [address]-08-11 08:17:00 Test Item Value Reference Range Interpretation Comments Hgb (test code = Hgb) 7.9 12.0-16.0 [place] 008731-08-11 08:17:00 Test Item Value Reference Range Interpretation Comments Hct (test code = Hct) 24.0 36.0-48.0 [place] 008731-08-11 08:17:00 Test Item Value Reference Range Interpretation Comments MCV (test code = MCV) 90.6 80.0-98.0 [facility] StationXusnsltEDYFDKHJKF1907-96-38 08:17:00 Test Item Value Reference Range Interpretation Comments MCH (test code = MCH) 29.7 pg 27.0-31.0 [facility] StationXxptquoKDJXMNZXYO9817-03-76 08:17:00 Test Item Value Reference Range Interpretation Comments MCHC (test code = MCHC) 32.7 32.0-36.0 [facility] StationYkxmmqlPJZZMICFBQ2802-21-03 08:17:00 Test Item Value Reference Range Interpretation Comments RDW (test code = RDW) 19.1 11.5-14.5 [place] 008731-08-11 08:17:00 Test Item Value Reference Range Interpretation Comments Platelet (test code = Platelet) 71 133-450 [facility] StationBprjhrfUAYUVNHEAM5203-18-32 08:17:00 Test Item Value Reference Range Interpretation Comments MPV (test code = MPV) 9.9 7.4-10.4 [facility] StationHokqgfbHSAUBBVRVA4248-58-96 08:17:00 Test Item Value Reference Range Interpretation Comments Segs (test code = Segs) 56.1 45.0-75.0 [facility] StationZlivxifWUEYJHAEKF4463-09-33 08:17:00 Test Item Value Reference Range Interpretation Comments Lymphocytes (test code = Lymphocytes) 28.9 20.0-40.0 [place] 008731-08-11 08:17:00 Test Item Value Reference Range Interpretation Comments Monocytes (test code = Monocytes) 8.1 2.0-12.0 [place] [address]-08-11 08:17:00 Test Item Value Reference Range Interpretation Comments Eosinophils (test code = 5.9 See_Comment [A utomated message] The Eosinophils) system which ge nerated this result tra nsmitted reference range : <=4.0. The reference r leo was not used to int erpret this result as normal/abnormal . [place] 008731-08-11 08:17:00 Test Item Value Reference Range Interpretation Comments Basophils (test code = 1.0 See_Comment [Aut omated message] The Basophils) system which ge nerated this result tra nsmitted reference range : <=1.0. The reference r leo was not used to int erpret this result as normal/abnormal . [place] 008731-08-11 08:17:00 Test Item Value Reference Range Interpretation Comments Neutrophils # (test code = Neutrophils 1.3 1.5-8.1 #) [place] 008731-08-11 08:17:00 Test Item Value Reference Range Interpretation Comments Lymphocytes # (test code = Lymphocytes 0.7 1.0-5.5 #) [place] 008731-08-11 08:17:00 Test Item Value Reference Range Interpretation Comments Monocytes # (test code 0.2 See_Comment [Aut omated message] The = Monocytes #) system which generated this result tra nsmitted reference range : <=0.8. The reference r leo was not used to int erpret this result as normal/abnormal . [place] 008731-08-11 08:17:00 Test Item Value Reference Range Interpretation Comments Eosinophils # (test code 0.1 See_Comment [A utomated message] The = Eosinophils #) system whic h generated this result tra nsmitted reference range : <=0.5. The reference r leo was not used to int erpret this result as normal/abnormal . [facility] [id number] 08:17:00 Test Item Value Reference Range Interpretation Comments Glucose Lvl (test code = Glucose Lvl) 94 70-99 [facility] [id number] 08:17:00 Test Item Value Reference Range Interpretation Comments BUN (test code = BUN) 27 7-22 [facility] [id number] 08:17:00 Test Item Value Reference Range Interpretation Comments Creatinine Lvl (test code = Creatinine 4.95 0.50-1.40 Lvl) [place] 912791-08-11 08:17:00 Test Item Value Reference Range Interpretation Comments Sodium Lvl (test code = Sodium Lvl) 136 135-145 [place] 912791-08-11 08:17:00 Test Item Value Reference Range Interpretation Comments Potassium Lvl (test code = Potassium 3.9 3.5-5.1 Lvl) [place] 912791-08-11 08:17:00 Test Item Value Reference Range Interpretation Comments Chloride Lvl (test code = Chloride Lvl) 103 95-109 [place] 912791-08-11 08:17:00 Test Item Value Reference Range Interpretation Comments CO2 (test code = CO2) 30 24-32 [place] 912791-08-11 08:17:00 Test Item Value Reference Range Interpretation Comments AGAP (test code = AGAP) 6.9 10.0-20.0 [place] 912791-08-11 08:17:00 Test Item Value Reference Range Interpretation Comments Calcium Lvl (test code = Calcium Lvl) 8.5 8.5-10.5 [place] 912791-08-11 08:17:00 Test Item Value Reference Range Interpretation Comments eGFR (test code = eGFR) 10 [place] 912791-08-11 08:17:00 Test Item Value Reference Range Interpretation Comments Phosphorus (test code = Phosphorus) 3.0 2.5-4.5 [place] 912791-08-11 08:17:00 Test Item Value Reference Range Interpretation Comments Magnesium Lvl (test code = Magnesium 2.4 1.8-2.4 Lvl) [place] 008731-08-11 08:17:00 Test Item Value Reference Range Interpretation Comments WBC (test code = WBC) 2.3 3.7-10.4 [place] 008731-08-11 08:17:00 Test Item Value Reference Range Interpretation Comments RBC (test code = RBC) 2.65 4.20-5.40 [place] [address]-08-11 08:17:00 Test Item Value Reference Range Interpretation Comments Hgb (test code = Hgb) 7.9 12.0-16.0 [place] [address]-08-11 08:17:00 Test Item Value Reference Range Interpretation Comments Hct (test code = Hct) 24.0 36.0-48.0 [place] [address]-08-11 08:17:00 Test Item Value Reference Range Interpretation Comments MCV (test code = MCV) 90.6 80.0-98.0 [place] 008731-08-11 08:17:00 Test Item Value Reference Range Interpretation Comments MCH (test code = MCH) 29.7 pg 27.0-31.0 [place] 008731-08-11 08:17:00 Test Item Value Reference Range Interpretation Comments MCHC (test code = MCHC) 32.7 32.0-36.0 [place] 008731-08-11 08:17:00 Test Item Value Reference Range Interpretation Comments RDW (test code = RDW) 19.1 11.5-14.5 [place] 008731-08-11 08:17:00 Test Item Value Reference Range Interpretation Comments Platelet (test code = Platelet) 71 133-450 [place] 008731-08-11 08:17:00 Test Item Value Reference Range Interpretation Comments MPV (test code = MPV) 9.9 7.4-10.4 [facility] StationEwevchzYHXJGIKEQJ1749-39-81 08:17:00 Test Item Value Reference Range Interpretation Comments Segs (test code = Segs) 56.1 45.0-75.0 [place] 008731-08-11 08:17:00 Test Item Value Reference Range Interpretation Comments Lymphocytes (test code = Lymphocytes) 28.9 20.0-40.0 [place] 008731-08-11 08:17:00 Test Item Value Reference Range Interpretation Comments Monocytes (test code = Monocytes) 8.1 2.0-12.0 [place] 008731-08-11 08:17:00 Test Item Value Reference Range Interpretation Comments Eosinophils (test code = 5.9 See_Comment [A utomated message] The Eosinophils) system which ge nerated this result tra nsmitted reference range : <=4.0. The reference r leo was not used to int erpret this result as normal/abnormal . [facility] StationQqexbcjKKAKLPAORW9907-04-62 08:17:00 Test Item Value Reference Range Interpretation Comments Basophils (test code = 1.0 See_Comment [Aut omated message] The Basophils) system which ge nerated this result tra nsmitted reference range : <=1.0. The reference r leo was not used to int erpret this result as normal/abnormal . [place] 008731-08-11 08:17:00 Test Item Value Reference Range Interpretation Comments Neutrophils # (test code = Neutrophils 1.3 1.5-8.1 #) [place] 008731-08-11 08:17:00 Test Item Value Reference Range Interpretation Comments Lymphocytes # (test code = Lymphocytes 0.7 1.0-5.5 #) [place] 008731-08-11 08:17:00 Test Item Value Reference Range Interpretation Comments Monocytes # (test code 0.2 See_Comment [Aut omated message] The = Monocytes #) system which generated this result tra nsmitted reference range : <=0.8. The reference r leo was not used to int erpret this result as normal/abnormal . [place] 008731-08-11 08:17:00 Test Item Value Reference Range Interpretation Comments Eosinophils # (test code 0.1 See_Comment [A utomated message] The = Eosinophils #) system whic h generated this result tra nsmitted reference range : <=0.5. The reference r leo was not used to int erpret this result as normal/abnormal . [place] 912791-08-11 08:17:00 Test Item Value Reference Range Interpretation Comments Glucose Lvl (test code = Glucose Lvl) 94 70-99 [place] 912791-08-11 08:17:00 Test Item Value Reference Range Interpretation Comments BUN (test code = BUN) 27 7-22 [place] 912791-08-11 08:17:00 Test Item Value Reference Range Interpretation Comments Creatinine Lvl (test code = Creatinine 4.95 0.50-1.40 Lvl) [place] 912791-08-11 08:17:00 Test Item Value Reference Range Interpretation Comments Sodium Lvl (test code = Sodium Lvl) 136 135-145 [place] 912791-08-11 08:17:00 Test Item Value Reference Range Interpretation Comments Potassium Lvl (test code = Potassium 3.9 3.5-5.1 Lvl) [place] [address]-08-11 08:17:00 Test Item Value Reference Range Interpretation Comments Chloride Lvl (test code = Chloride Lvl) 103 95-109 [place] [address]-08-11 08:17:00 Test Item Value Reference Range Interpretation Comments CO2 (test code = CO2) 30 24-32 [place] 912791-08-11 08:17:00 Test Item Value Reference Range Interpretation Comments AGAP (test code = AGAP) 6.9 10.0-20.0 [place] [address]-08-11 08:17:00 Test Item Value Reference Range Interpretation Comments Calcium Lvl (test code = Calcium Lvl) 8.5 8.5-10.5 [place] 912791-08-11 08:17:00 Test Item Value Reference Range Interpretation Comments eGFR (test code = eGFR) 10 [place] 912791-08-11 08:17:00 Test Item Value Reference Range Interpretation Comments Phosphorus (test code = Phosphorus) 3.0 2.5-4.5 [place] 912791-08-11 08:17:00 Test Item Value Reference Range Interpretation Comments Magnesium Lvl (test code = Magnesium 2.4 1.8-2.4 Lvl) [place] 008731-08-11 08:17:00 Test Item Value Reference Range Interpretation Comments WBC (test code = WBC) 2.3 3.7-10.4 [place] [address]-08-11 08:17:00 Test Item Value Reference Range Interpretation Comments RBC (test code = RBC) 2.65 4.20-5.40 [place] [address]-08-11 08:17:00 Test Item Value Reference Range Interpretation Comments Hgb (test code = Hgb) 7.9 12.0-16.0 [place] [address]-08-11 08:17:00 Test Item Value Reference Range Interpretation Comments Hct (test code = Hct) 24.0 36.0-48.0 [place] [address]-08-11 08:17:00 Test Item Value Reference Range Interpretation Comments MCV (test code = MCV) 90.6 80.0-98.0 [place] [address]-08-11 08:17:00 Test Item Value Reference Range Interpretation Comments MCH (test code = MCH) 29.7 pg 27.0-31.0 [place] [address]-08-11 08:17:00 Test Item Value Reference Range Interpretation Comments MCHC (test code = MCHC) 32.7 32.0-36.0 [facility] StationPpskaytWPPFGKGXLI2135-92-53 08:17:00 Test Item Value Reference Range Interpretation Comments RDW (test code = RDW) 19.1 11.5-14.5 [place] 008731-08-11 08:17:00 Test Item Value Reference Range Interpretation Comments Platelet (test code = Platelet) 71 133-450 [facility] StationRlsxfadIVLHDKTNAS3618-83-01 08:17:00 Test Item Value Reference Range Interpretation Comments MPV (test code = MPV) 9.9 7.4-10.4 [place] 008731-08-11 08:17:00 Test Item Value Reference Range Interpretation Comments Segs (test code = Segs) 56.1 45.0-75.0 [place] 008731-08-11 08:17:00 Test Item Value Reference Range Interpretation Comments Lymphocytes (test code = Lymphocytes) 28.9 20.0-40.0 [facility] StationCifjzmeILCQHCPBDH7733-08-07 08:17:00 Test Item Value Reference Range Interpretation Comments Monocytes (test code = Monocytes) 8.1 2.0-12.0 [facility] StationRqletrbPJVEVWFOLD3693-02-28 08:17:00 Test Item Value Reference Range Interpretation Comments Eosinophils (test code = 5.9 See_Comment [A utomated message] The Eosinophils) system which ge nerated this result tra nsmitted reference range : <=4.0. The reference r leo was not used to int erpret this result as normal/abnormal . [facility] StationStomoqhLFRFWYJKYN0990-46-93 08:17:00 Test Item Value Reference Range Interpretation Comments Basophils (test code = 1.0 See_Comment [Aut omated message] The Basophils) system which ge nerated this result tra nsmitted reference range : <=1.0. The reference r leo was not used to int erpret this result as normal/abnormal . [facility] StationOejaupwRSMPQFIQHL4089-63-63 08:17:00 Test Item Value Reference Range Interpretation Comments Neutrophils # (test code = Neutrophils 1.3 1.5-8.1 #) [facility] StationXpbzwivXCJZHQQGMY8817-82-56 08:17:00 Test Item Value Reference Range Interpretation Comments Lymphocytes # (test code = Lymphocytes 0.7 1.0-5.5 #) [place] 008731-08-11 08:17:00 Test Item Value Reference Range Interpretation Comments Monocytes # (test code 0.2 See_Comment [Aut omated message] The = Monocytes #) system which generated this result tra nsmitted reference range : <=0.8. The reference r leo was not used to int erpret this result as normal/abnormal . [place] 008731-08-11 08:17:00 Test Item Value Reference Range Interpretation Comments Eosinophils # (test code 0.1 See_Comment [A utomated message] The = Eosinophils #) system whic h generated this result tra nsmitted reference range : <=0.5. The reference r leo was not used to int erpret this result as normal/abnormal . [place] 912791-08-10 09:30:00 Test Item Value Reference Range Interpretation Comments Glucose Lvl (test code = Glucose Lvl) 61 70-99 [place] 912791-08-10 09:30:00 Test Item Value Reference Range Interpretation Comments BUN (test code = BUN) 13 7-22 [place] 912791-08-10 09:30:00 Test Item Value Reference Range Interpretation Comments Creatinine Lvl (test code = Creatinine 3.71 0.50-1.40 Lvl) [place] 912791-08-10 09:30:00 Test Item Value Reference Range Interpretation Comments Sodium Lvl (test code = Sodium Lvl) 136 135-145 [place] 912791-08-10 09:30:00 Test Item Value Reference Range Interpretation Comments Potassium Lvl (test code = Potassium 4.3 3.5-5.1 Lvl) [place] 912791-08-10 09:30:00 Test Item Value Reference Range Interpretation Comments Chloride Lvl (test code = Chloride Lvl) 103 95-109 [facility] [id number] 09:30:00 Test Item Value Reference Range Interpretation Comments CO2 (test code = CO2) 27 24-32 [place] 912791-08-10 09:30:00 Test Item Value Reference Range Interpretation Comments Calcium Lvl (test code = Calcium Lvl) 7.9 8.5-10.5 [place] 912791-08-10 09:30:00 Test Item Value Reference Range Interpretation Comments AGAP (test code = AGAP) 10.3 10.0-20.0 [place] [address]-08-10 09:30:00 Test Item Value Reference Range Interpretation Comments eGFR (test code = eGFR) 15 [place] 912791-08-10 09:30:00 Test Item Value Reference Range Interpretation Comments Magnesium Lvl (test code = Magnesium 2.3 1.8-2.4 Lvl) [place] 912791-08-10 09:30:00 Test Item Value Reference Range Interpretation Comments Phosphorus (test code = Phosphorus) 3.1 2.5-4.5 [place] [address]-08-10 09:30:00 Test Item Value Reference Range Interpretation Comments Segs (test code = Segs) 61.5 45.0-75.0 [place] [address]-08-10 09:30:00 Test Item Value Reference Range Interpretation Comments Lymphocytes (test code = Lymphocytes) 24.6 20.0-40.0 [place] [address]-08-10 09:30:00 Test Item Value Reference Range Interpretation Comments Monocytes (test code = Monocytes) 7.4 2.0-12.0 [place] [address]-08-10 09:30:00 Test Item Value Reference Range Interpretation Comments Eosinophils (test code = 5.5 See_Comment [A utomated message] The Eosinophils) system which nerated this result tra nsmitted reference range : <=4.0. The reference r leo was not used to int erpret this result as normal/abnormal . [place] 008731-08-10 09:30:00 Test Item Value Reference Range Interpretation Comments Basophils (test code = 1.0 See_Comment [Aut omated message] The Basophils) system which ge nerated this result tra nsmitted reference range : <=1.0. The reference r leo was not used to int erpret this result as normal/abnormal . [place] [address]-08-10 09:30:00 Test Item Value Reference Range Interpretation Comments Neutrophils # (test code = Neutrophils 1.6 1.5-8.1 #) [place] 008731-08-10 09:30:00 Test Item Value Reference Range Interpretation Comments Lymphocytes # (test code = Lymphocytes 0.6 1.0-5.5 #) [facility] StationGzsvsnxBXQMXVUKXC5652-81-17 09:30:00 Test Item Value Reference Range Interpretation Comments Monocytes # (test code 0.2 See_Comment [Aut omated message] The = Monocytes #) system which generated this result tra nsmitted reference range : <=0.8. The reference r leo was not used to int erpret this result as normal/abnormal . [place] 008731-08-10 09:30:00 Test Item Value Reference Range Interpretation Comments Eosinophils # (test code 0.1 See_Comment [A utomated message] The = Eosinophils #) system whic h generated this result tra nsmitted reference range : <=0.5. The reference r leo was not used to int erpret this result as normal/abnormal . [facility] StationCjciecsYBITLSUXRR8323-55-62 09:30:00 Test Item Value Reference Range Interpretation [...] studies, if clinically indicated, are recommended. CPT: 91598 [facility] StationIjdtosfZLKFICWZKV2824-16-35 09:30:00 Test Item Value Reference Range Interpretation Comments WBC (test code = WBC) 2.5 3.7-10.4 [place] 008731-08-10 09:30:00 Test Item Value Reference Range Interpretation Comments RBC (test code = RBC) 2.68 4.20-5.40 [place] [address]-08-10 09:30:00 Test Item Value Reference Range Interpretation Comments Hgb (test code = Hgb) 8.2 12.0-16.0 [place] [address]-08-10 09:30:00 Test Item Value Reference Range Interpretation Comments Hct (test code = Hct) 24.3 36.0-48.0 [place] [address]-08-10 09:30:00 Test Item Value Reference Range Interpretation Comments MCV (test code = MCV) 90.9 80.0-98.0 [place] 008731-08-10 09:30:00 Test Item Value Reference Range Interpretation Comments MCH (test code = MCH) 30.5 pg 27.0-31.0 [place] 008731-08-10 09:30:00 Test Item Value Reference Range Interpretation Comments MCHC (test code = MCHC) 33.6 32.0-36.0 [place] 008731-08-10 09:30:00 Test Item Value Reference Range Interpretation Comments RDW (test code = RDW) 19.4 11.5-14.5 [place] [address]-08-10 09:30:00 Test Item Value Reference Range Interpretation Comments Platelet (test code = Platelet) 70 133-450 [place] 008731-08-10 09:30:00 Test Item Value Reference Range Interpretation Comments MPV (test code = MPV) 10.7 7.4-10.4 [place] 912791-08-10 09:30:00 Test Item Value Reference Range Interpretation Comments Glucose Lvl (test code = Glucose Lvl) 61 70-99 [facility]2021-08-10 09:30:00 Test Item Value Reference Range Interpretation Comments BUN (test code = BUN) 13 7-22 [facility]2021-08-10 09:30:00 Test Item Value Reference Range Interpretation Comments Creatinine Lvl (test code = Creatinine 3.71 0.50-1.40 Lvl) [facility]2021-08-10 09:30:00 Test Item Value Reference Range Interpretation Comments Sodium Lvl (test code = Sodium Lvl) 136 135-145 [place] 912791-08-10 09:30:00 Test Item Value Reference Range Interpretation Comments Potassium Lvl (test code = Potassium 4.3 3.5-5.1 Lvl) [place] 912791-08-10 09:30:00 Test Item Value Reference Range Interpretation Comments Chloride Lvl (test code = Chloride Lvl) 103 95-109 [place] 912791-08-10 09:30:00 Test Item Value Reference Range Interpretation Comments CO2 (test code = CO2) 27 24-32 [place] 912791-08-10 09:30:00 Test Item Value Reference Range Interpretation Comments Calcium Lvl (test code = Calcium Lvl) 7.9 8.5-10.5 [place] 912791-08-10 09:30:00 Test Item Value Reference Range Interpretation Comments AGAP (test code = AGAP) 10.3 10.0-20.0 [place] [address]-08-10 09:30:00 Test Item Value Reference Range Interpretation Comments eGFR (test code = eGFR) 15 [place] 912791-08-10 09:30:00 Test Item Value Reference Range Interpretation Comments Magnesium Lvl (test code = Magnesium 2.3 1.8-2.4 Lvl) [place] 912791-08-10 09:30:00 Test Item Value Reference Range Interpretation Comments Phosphorus (test code = Phosphorus) 3.1 2.5-4.5 [place] 008731-08-10 09:30:00 Test Item Value Reference Range Interpretation Comments Segs (test code = Segs) 61.5 45.0-75.0 [place] 008731-08-10 09:30:00 Test Item Value Reference Range Interpretation Comments Lymphocytes (test code = Lymphocytes) 24.6 20.0-40.0 [place] [address]-08-10 09:30:00 Test Item Value Reference Range Interpretation Comments Monocytes (test code = Monocytes) 7.4 2.0-12.0 [place] 008731-08-10 09:30:00 Test Item Value Reference Range Interpretation Comments Eosinophils (test code = 5.5 See_Comment [A utomated message] The Eosinophils) system which ge nerated this result tra nsmitted reference range : <=4.0. The reference r leo was not used to int erpret this result as normal/abnormal . [place] [address]-08-10 09:30:00 Test Item Value Reference Range Interpretation Comments Basophils (test code = 1.0 See_Comment [Aut omated message] The Basophils) system which ge nerated this result tra nsmitted reference range : <=1.0. The reference r leo was not used to int erpret this result as normal/abnormal . [place] 008731-08-10 09:30:00 Test Item Value Reference Range Interpretation Comments Neutrophils # (test code = Neutrophils 1.6 1.5-8.1 #) [facility] StationGwjrjxcXRPMUPSPRX0758-62-22 09:30:00 Test Item Value Reference Range Interpretation Comments Lymphocytes # (test code = Lymphocytes 0.6 1.0-5.5 #) [facility] StationPdnejzbMHXNYLGPYC5724-43-49 09:30:00 Test Item Value Reference Range Interpretation Comments Monocytes # (test code 0.2 See_Comment [Aut omated message] The = Monocytes #) system which generated this result tra nsmitted reference range : <=0.8. The reference r leo was not used to int erpret this result as normal/abnormal . [facility] StationBjnohwcJGWFANXWKI2639-19-25 09:30:00 Test Item Value Reference Range Interpretation Comments Eosinophils # (test code 0.1 See_Comment [A utomated message] The = Eosinophils #) system whic h generated this result tra nsmitted reference range : <=0.5. The reference r leo was not used to int erpret this result as normal/abnormal . [facility] StationRjsgrqkZOOBJJJVHU6438-84-90 09:30:00 Test Item Value Reference Range Interpretation [...] studies, if clinically indicated, are recommended. CPT: 42595 [facility] StationSswoktcRFCXVKCGTN8224-82-60 09:30:00 Test Item Value Reference Range Interpretation Comments WBC (test code = WBC) 2.5 3.7-10.4 [facility] StationGttnxwrPJCZXJQXQJ9841-06-85 09:30:00 Test Item Value Reference Range Interpretation Comments RBC (test code = RBC) 2.68 4.20-5.40 [facility] StationMslmyjiGBCVYOQRJJ1656-70-02 09:30:00 Test Item Value Reference Range Interpretation Comments Hgb (test code = Hgb) 8.2 12.0-16.0 [place] [address]-08-10 09:30:00 Test Item Value Reference Range Interpretation Comments Hct (test code = Hct) 24.3 36.0-48.0 [place] 008731-08-10 09:30:00 Test Item Value Reference Range Interpretation Comments MCV (test code = MCV) 90.9 80.0-98.0 [place] 008731-08-10 09:30:00 Test Item Value Reference Range Interpretation Comments MCH (test code = MCH) 30.5 pg 27.0-31.0 [place] 008731-08-10 09:30:00 Test Item Value Reference Range Interpretation Comments MCHC (test code = MCHC) 33.6 32.0-36.0 [place] 008731-08-10 09:30:00 Test Item Value Reference Range Interpretation Comments RDW (test code = RDW) 19.4 11.5-14.5 [place] 008731-08-10 09:30:00 Test Item Value Reference Range Interpretation Comments Platelet (test code = Platelet) 70 133-450 [place] 008731-08-10 09:30:00 Test Item Value Reference Range Interpretation Comments MPV (test code = MPV) 10.7 7.4-10.4 [facility]2021-08-10 09:30:00 Test Item Value Reference Range Interpretation Comments Glucose Lvl (test code = Glucose Lvl) 61 70-99 [place] 912791-08-10 09:30:00 Test Item Value Reference Range Interpretation Comments BUN (test code = BUN) 13 7-22 [place] 912791-08-10 09:30:00 Test Item Value Reference Range Interpretation Comments Creatinine Lvl (test code = Creatinine 3.71 0.50-1.40 Lvl) [place] 912791-08-10 09:30:00 Test Item Value Reference Range Interpretation Comments Sodium Lvl (test code = Sodium Lvl) 136 135-145 [place] 912791-08-10 09:30:00 Test Item Value Reference Range Interpretation Comments Potassium Lvl (test code = Potassium 4.3 3.5-5.1 Lvl) [place] 912791-08-10 09:30:00 Test Item Value Reference Range Interpretation Comments Chloride Lvl (test code = Chloride Lvl) 103 95-109 [place] 912791-08-10 09:30:00 Test Item Value Reference Range Interpretation Comments CO2 (test code = CO2) 27 24-32 [place] 912791-08-10 09:30:00 Test Item Value Reference Range Interpretation Comments Calcium Lvl (test code = Calcium Lvl) 7.9 8.5-10.5 [place] 912791-08-10 09:30:00 Test Item Value Reference Range Interpretation Comments AGAP (test code = AGAP) 10.3 10.0-20.0 [place] 912791-08-10 09:30:00 Test Item Value Reference Range Interpretation Comments eGFR (test code = eGFR) 15 [place] 912791-08-10 09:30:00 Test Item Value Reference Range Interpretation Comments Magnesium Lvl (test code = Magnesium 2.3 1.8-2.4 Lvl) [place] 912791-08-10 09:30:00 Test Item Value Reference Range Interpretation Comments Phosphorus (test code = Phosphorus) 3.1 2.5-4.5 [place] 008731-08-10 09:30:00 Test Item Value Reference Range Interpretation Comments Segs (test code = Segs) 61.5 45.0-75.0 [place] 008731-08-10 09:30:00 Test Item Value Reference Range Interpretation Comments Lymphocytes (test code = Lymphocytes) 24.6 20.0-40.0 [place] [address]-08-10 09:30:00 Test Item Value Reference Range Interpretation Comments Monocytes (test code = Monocytes) 7.4 2.0-12.0 [place] [address]-08-10 09:30:00 Test Item Value Reference Range Interpretation Comments Eosinophils (test code = 5.5 See_Comment [A utomated message] The Eosinophils) system which ge nerated this result tra nsmitted reference range : <=4.0. The reference r leo was not used to int erpret this result as normal/abnormal . [place] 008731-08-10 09:30:00 Test Item Value Reference Range Interpretation Comments Basophils (test code = 1.0 See_Comment [Aut omated message] The Basophils) system which ge nerated this result tra nsmitted reference range : <=1.0. The reference r leo was not used to int erpret this result as normal/abnormal . [facility] StationCkxkpqbXVXFSFAHLX4182-39-06 09:30:00 Test Item Value Reference Range Interpretation Comments Neutrophils # (test code = Neutrophils 1.6 1.5-8.1 #) [facility] StationKegxemeMOHOHZEKSO1448-67-16 09:30:00 Test Item Value Reference Range Interpretation Comments Lymphocytes # (test code = Lymphocytes 0.6 1.0-5.5 #) [facility] StationSwumsgzKUVSRMXADC9559-28-95 09:30:00 Test Item Value Reference Range Interpretation Comments Monocytes # (test code 0.2 See_Comment [Aut omated message] The = Monocytes #) system which generated this result tra nsmitted reference range : <=0.8. The reference r leo was not used to int erpret this result as normal/abnormal . [place] 008731-08-10 09:30:00 Test Item Value Reference Range Interpretation Comments Eosinophils # (test code 0.1 See_Comment [A utomated message] The = Eosinophils #) system whic h generated this result tra nsmitted reference range : <=0.5. The reference r leo was not used to int erpret this result as normal/abnormal . [place] 008731-08-10 09:30:00 Test Item Value Reference Range Interpretation [...] studies, if clinically indicated, are recommended. CPT: 28910 [facility] StationAdrfoseJULPISDIFN0678-46-76 09:30:00 Test Item Value Reference Range Interpretation Comments WBC (test code = WBC) 2.5 3.7-10.4 [place] 008731-08-10 09:30:00 Test Item Value Reference Range Interpretation Comments RBC (test code = RBC) 2.68 4.20-5.40 [place] 008731-08-10 09:30:00 Test Item Value Reference Range Interpretation Comments Hgb (test code = Hgb) 8.2 12.0-16.0 [place] 008731-08-10 09:30:00 Test Item Value Reference Range Interpretation Comments Hct (test code = Hct) 24.3 36.0-48.0 [place] 008731-08-10 09:30:00 Test Item Value Reference Range Interpretation Comments MCV (test code = MCV) 90.9 80.0-98.0 [place] 008731-08-10 09:30:00 Test Item Value Reference Range Interpretation Comments MCH (test code = MCH) 30.5 pg 27.0-31.0 [place] 008731-08-10 09:30:00 Test Item Value Reference Range Interpretation Comments MCHC (test code = MCHC) 33.6 32.0-36.0 [place] 008731-08-10 09:30:00 Test Item Value Reference Range Interpretation Comments RDW (test code = RDW) 19.4 11.5-14.5 [place] 008731-08-10 09:30:00 Test Item Value Reference Range Interpretation Comments Platelet (test code = Platelet) 70 133-450 [place] 008731-08-10 09:30:00 Test Item Value Reference Range Interpretation Comments MPV (test code = MPV) 10.7 7.4-10.4 [facility]2021-08-10 09:30:00 Test Item Value Reference Range Interpretation Comments Glucose Lvl (test code = Glucose Lvl) 61 70-99 [place] 912791-08-10 09:30:00 Test Item Value Reference Range Interpretation Comments BUN (test code = BUN) 13 7-22 [place] 912791-08-10 09:30:00 Test Item Value Reference Range Interpretation Comments Creatinine Lvl (test code = Creatinine 3.71 0.50-1.40 Lvl) [facility]2021-08-10 09:30:00 Test Item Value Reference Range Interpretation Comments Sodium Lvl (test code = Sodium Lvl) 136 135-145 [facility]2021-08-10 09:30:00 Test Item Value Reference Range Interpretation Comments Potassium Lvl (test code = Potassium 4.3 3.5-5.1 Lvl) [place] 912791-08-10 09:30:00 Test Item Value Reference Range Interpretation Comments Chloride Lvl (test code = Chloride Lvl) 103 95-109 [place] 912791-08-10 09:30:00 Test Item Value Reference Range Interpretation Comments CO2 (test code = CO2) 27 24-32 [place] 912791-08-10 09:30:00 Test Item Value Reference Range Interpretation Comments Calcium Lvl (test code = Calcium Lvl) 7.9 8.5-10.5 [place] [address]-08-10 09:30:00 Test Item Value Reference Range Interpretation Comments AGAP (test code = AGAP) 10.3 10.0-20.0 [place] [address]-08-10 09:30:00 Test Item Value Reference Range Interpretation Comments eGFR (test code = eGFR) 15 [place] 912791-08-10 09:30:00 Test Item Value Reference Range Interpretation Comments Magnesium Lvl (test code = Magnesium 2.3 1.8-2.4 Lvl) [place] [address]-08-10 09:30:00 Test Item Value Reference Range Interpretation Comments Phosphorus (test code = Phosphorus) 3.1 2.5-4.5 [place] [address]-08-10 09:30:00 Test Item Value Reference Range Interpretation Comments Segs (test code = Segs) 61.5 45.0-75.0 [place] [address]-08-10 09:30:00 Test Item Value Reference Range Interpretation Comments Lymphocytes (test code = Lymphocytes) 24.6 20.0-40.0 [place] [address]-08-10 09:30:00 Test Item Value Reference Range Interpretation Comments Monocytes (test code = Monocytes) 7.4 2.0-12.0 [place] [address]-08-10 09:30:00 Test Item Value Reference Range Interpretation Comments Eosinophils (test code = 5.5 See_Comment [A utomated message] The Eosinophils) system which ge nerated this result tra nsmitted reference range : <=4.0. The reference r leo was not used to int erpret this result as normal/abnormal . [facility] StationYktmuzfUFZOEPCNQQ4711-85-95 09:30:00 Test Item Value Reference Range Interpretation Comments Basophils (test code = 1.0 See_Comment [Aut omated message] The Basophils) system which ge nerated this result tra nsmitted reference range : <=1.0. The reference r leo was not used to int erpret this result as normal/abnormal . [facility] StationYcbkklvSAPVJYLUAB8580-90-34 09:30:00 Test Item Value Reference Range Interpretation Comments Neutrophils # (test code = Neutrophils 1.6 1.5-8.1 #) [facility] StationNojduxkFWWSVEMDHP0316-81-02 09:30:00 Test Item Value Reference Range Interpretation Comments Lymphocytes # (test code = Lymphocytes 0.6 1.0-5.5 #) [facility] StationMbwssnqNEUQPPHQCE9680-25-23 09:30:00 Test Item Value Reference Range Interpretation Comments Monocytes # (test code 0.2 See_Comment [Aut omated message] The = Monocytes #) system which generated this result tra nsmitted reference range : <=0.8. The reference r leo was not used to int erpret this result as normal/abnormal . [facility] StationZrmakhfZWGBPTTJWZ6969-56-68 09:30:00 Test Item Value Reference Range Interpretation Comments Eosinophils # (test code 0.1 See_Comment [A utomated message] The = Eosinophils #) system whic h generated this result tra nsmitted reference range : <=0.5. The reference r leo was not used to int erpret this result as normal/abnormal . [facility] StationNhqyxjmYUAYMXROAW1375-36-62 09:30:00 Test Item Value Reference Range Interpretation [...] studies, if clinically indicated, are recommended. CPT: 80291 [place] 008731-08-10 09:30:00 Test Item Value Reference Range Interpretation Comments WBC (test code = WBC) 2.5 3.7-10.4 [facility] StationNbulhfrMGROLCAFPH7711-65-23 09:30:00 Test Item Value Reference Range Interpretation Comments RBC (test code = RBC) 2.68 4.20-5.40 [place] 008731-08-10 09:30:00 Test Item Value Reference Range Interpretation Comments Hgb (test code = Hgb) 8.2 12.0-16.0 [facility] StationVwpcsdiLKCCUECAGT8687-21-12 09:30:00 Test Item Value Reference Range Interpretation Comments Hct (test code = Hct) 24.3 36.0-48.0 [facility] StationFuqfbqbMZDWVIKZWM4036-84-10 09:30:00 Test Item Value Reference Range Interpretation Comments MCV (test code = MCV) 90.9 80.0-98.0 [place] 008731-08-10 09:30:00 Test Item Value Reference Range Interpretation Comments MCH (test code = MCH) 30.5 pg 27.0-31.0 [facility] StationMryefkyTJCEAAQKFP3516-03-80 09:30:00 Test Item Value Reference Range Interpretation Comments MCHC (test code = MCHC) 33.6 32.0-36.0 [facility] StationXfgidzsXWFRXHQGVZ3872-75-53 09:30:00 Test Item Value Reference Range Interpretation Comments RDW (test code = RDW) 19.4 11.5-14.5 [facility] StationZhienanKZHDONKRMO7665-31-21 09:30:00 Test Item Value Reference Range Interpretation Comments Platelet (test code = Platelet) 70 133-450 [facility] StationDpyrzanOGGGIIHNAO7669-18-78 09:30:00 Test Item Value Reference Range Interpretation Comments MPV (test code = MPV) 10.7 7.4-10.4 [facility]2021-08-10 09:30:00 Test Item Value Reference Range Interpretation Comments Glucose Lvl (test code = Glucose Lvl) 61 70-99 [facility]2021-08-10 09:30:00 Test Item Value Reference Range Interpretation Comments BUN (test code = BUN) 13 7-22 [facility]2021-08-10 09:30:00 Test Item Value Reference Range Interpretation Comments Creatinine Lvl (test code = Creatinine 3.71 0.50-1.40 Lvl) [place] 912791-08-10 09:30:00 Test Item Value Reference Range Interpretation Comments Sodium Lvl (test code = Sodium Lvl) 136 135-145 [place] 912791-08-10 09:30:00 Test Item Value Reference Range Interpretation Comments Potassium Lvl (test code = Potassium 4.3 3.5-5.1 Lvl) [place] 912791-08-10 09:30:00 Test Item Value Reference Range Interpretation Comments Chloride Lvl (test code = Chloride Lvl) 103 95-109 [place] [address]-08-10 09:30:00 Test Item Value Reference Range Interpretation Comments CO2 (test code = CO2) 27 24-32 [place] 912791-08-10 09:30:00 Test Item Value Reference Range Interpretation Comments Calcium Lvl (test code = Calcium Lvl) 7.9 8.5-10.5 [place] 912791-08-10 09:30:00 Test Item Value Reference Range Interpretation Comments AGAP (test code = AGAP) 10.3 10.0-20.0 [place] [address]-08-10 09:30:00 Test Item Value Reference Range Interpretation Comments eGFR (test code = eGFR) 15 [place] 912791-08-10 09:30:00 Test Item Value Reference Range Interpretation Comments Magnesium Lvl (test code = Magnesium 2.3 1.8-2.4 Lvl) [place] 912791-08-10 09:30:00 Test Item Value Reference Range Interpretation Comments Phosphorus (test code = Phosphorus) 3.1 2.5-4.5 [place] [address]-08-10 09:30:00 Test Item Value Reference Range Interpretation Comments Segs (test code = Segs) 61.5 45.0-75.0 [place] [address]-08-10 09:30:00 Test Item Value Reference Range Interpretation Comments Lymphocytes (test code = Lymphocytes) 24.6 20.0-40.0 [place] [address]-08-10 09:30:00 Test Item Value Reference Range Interpretation Comments Monocytes (test code = Monocytes) 7.4 2.0-12.0 [place] [address]-08-10 09:30:00 Test Item Value Reference Range Interpretation Comments Eosinophils (test code = 5.5 See_Comment [A utomated message] The Eosinophils) system which ge nerated this result tra nsmitted reference range : <=4.0. The reference r leo was not used to int erpret this result as normal/abnormal . [place] 008731-08-10 09:30:00 Test Item Value Reference Range Interpretation Comments Basophils (test code = 1.0 See_Comment [Aut omated message] The Basophils) system which ge nerated this result tra nsmitted reference range : <=1.0. The reference r leo was not used to int erpret this result as normal/abnormal . [place] [address]-08-10 09:30:00 Test Item Value Reference Range Interpretation Comments Neutrophils # (test code = Neutrophils 1.6 1.5-8.1 #) [place] [address]-08-10 09:30:00 Test Item Value Reference Range Interpretation Comments Lymphocytes # (test code = Lymphocytes 0.6 1.0-5.5 #) [place] [address]-08-10 09:30:00 Test Item Value Reference Range Interpretation Comments Monocytes # (test code 0.2 See_Comment [Aut omated message] The = Monocytes #) system which generated this result tra nsmitted reference range : <=0.8. The reference r leo was not used to int erpret this result as normal/abnormal . [place] [address]-08-10 09:30:00 Test Item Value Reference Range Interpretation Comments Eosinophils # (test code 0.1 See_Comment [A utomated message] The = Eosinophils #) system [facility] generated this result tra nsmitted reference range : <=0.5. The reference r leo was not used to int erpret this result as normal/abnormal . [place] [address]-08-10 09:30:00 Test Item Value Reference Range Interpretation [...] studies, if clinically indicated, are recommended. CPT: 19354 [place] 008731-08-10 09:30:00 Test Item Value Reference Range Interpretation Comments WBC (test code = WBC) 2.5 3.7-10.4 [facility] StationFukndgqNUTJMOJVIA3085-71-26 09:30:00 Test Item Value Reference Range Interpretation Comments RBC (test code = RBC) 2.68 4.20-5.40 [facility] StationZexuwhuFCSBLVJPHZ3344-67-69 09:30:00 Test Item Value Reference Range Interpretation Comments Hgb (test code = Hgb) 8.2 12.0-16.0 [place] 008731-08-10 09:30:00 Test Item Value Reference Range Interpretation Comments Hct (test code = Hct) 24.3 36.0-48.0 [place] 008731-08-10 09:30:00 Test Item Value Reference Range Interpretation Comments MCV (test code = MCV) 90.9 80.0-98.0 [place] 008731-08-10 09:30:00 Test Item Value Reference Range Interpretation Comments MCH (test code = MCH) 30.5 pg 27.0-31.0 [facility] StationTdgzsbjUZPPCQZACV4878-46-81 09:30:00 Test Item Value Reference Range Interpretation Comments MCHC (test code = MCHC) 33.6 32.0-36.0 [facility] StationLiijkluRUZTFYSRAI7196-21-64 09:30:00 Test Item Value Reference Range Interpretation Comments RDW (test code = RDW) 19.4 11.5-14.5 [place] 008731-08-10 09:30:00 Test Item Value Reference Range Interpretation Comments Platelet (test code = Platelet) 70 133-450 [facility] StationTogxknkJTZGAAVWCD7393-25-24 09:30:00 Test Item Value Reference Range Interpretation Comments MPV (test code = MPV) 10.7 7.4-10.4 [facility]2021-08-09 05:10:00 Test Item Value Reference Range Interpretation Comments Glucose Lvl (test code = Glucose Lvl) 69 70-99 [place] 912791-08-09 05:10:00 Test Item Value Reference Range Interpretation Comments BUN (test code = BUN) 29 7-22 [place] 912791-08-09 05:10:00 Test Item Value Reference Range Interpretation Comments Creatinine Lvl (test code = Creatinine 5.14 0.50-1.40 Lvl) [place] 912791-08-09 05:10:00 Test Item Value Reference Range Interpretation Comments Sodium Lvl (test code = Sodium Lvl) 134 135-145 [place] 912791-08-09 05:10:00 Test Item Value Reference Range Interpretation Comments Potassium Lvl (test code = Potassium 5.1 3.5-5.1 Lvl) [place] 912791-08-09 05:10:00 Test Item Value Reference Range Interpretation Comments Chloride Lvl (test code = Chloride Lvl) 98 95-109 [place] 912791-08-09 05:10:00 Test Item Value Reference Range Interpretation Comments CO2 (test code = CO2) 29 24-32 [place] 912791-08-09 05:10:00 Test Item Value Reference Range Interpretation Comments Calcium Lvl (test code = Calcium Lvl) 7.6 8.5-10.5 [place] 912791-08-09 05:10:00 Test Item Value Reference Range Interpretation Comments AGAP (test code = AGAP) 12.1 10.0-20.0 [place] 912791-08-09 05:10:00 Test Item Value Reference Range Interpretation Comments eGFR (test code = eGFR) 10 [place] 912791-08-09 05:10:00 Test Item Value Reference Range Interpretation Comments Magnesium Lvl (test code = Magnesium 2.3 1.8-2.4 Lvl) [place] 912791-08-09 05:10:00 Test Item Value Reference Range Interpretation Comments Phosphorus (test code = Phosphorus) 5.0 2.5-4.5 [place] 008731-08-09 05:10:00 Test Item Value Reference Range Interpretation Comments WBC (test code = WBC) 2.7 3.7-10.4 [place] 008731-08-09 05:10:00 Test Item Value Reference Range Interpretation Comments RBC (test code = RBC) 2.80 4.20-5.40 [place] 008731-08-09 05:10:00 Test Item Value Reference Range Interpretation Comments Hgb (test code = Hgb) 8.5 12.0-16.0 [facility] StationDjkfkckPSVUTBAYNF3701-20-88 05:10:00 Test Item Value Reference Range Interpretation Comments Hct (test code = Hct) 25.7 36.0-48.0 [facility] StationUnkezkjSRQBVEIPXQ4750-72-66 05:10:00 Test Item Value Reference Range Interpretation Comments MCV (test code = MCV) 91.7 80.0-98.0 [facility] StationIbnlqloPMFYXDMHMA8790-99-80 05:10:00 Test Item Value Reference Range Interpretation Comments MCH (test code = MCH) 30.4 pg 27.0-31.0 [facility] StationQfqupvfGLNZJZZJZL5654-89-54 05:10:00 Test Item Value Reference Range Interpretation Comments MCHC (test code = MCHC) 33.1 32.0-36.0 [facility] StationWrnbzzmTQOIVAUAEH4276-44-30 05:10:00 Test Item Value Reference Range Interpretation Comments RDW (test code = RDW) 19.2 11.5-14.5 [facility] StationLjzhiewDZGXBZZSNN3563-08-02 05:10:00 Test Item Value Reference Range Interpretation Comments Platelet (test code = Platelet) 72 133-450 [facility] StationSaoxmsxCPFDTZSVES4192-19-91 05:10:00 Test Item Value Reference Range Interpretation Comments MPV (test code = MPV) 9.9 7.4-10.4 [facility] StationCbcdnxfMWQXGCBJMN2649-48-54 05:10:00 Test Item Value Reference Range Interpretation Comments Segs (test code = Segs) 72.6 45.0-75.0 [facility] StationAyivuwiVRNUUEZUAT6870-82-44 05:10:00 Test Item Value Reference Range Interpretation Comments Lymphocytes (test code = Lymphocytes) 15.9 20.0-40.0 [facility] StationIpixornMAJDSKGBWS2806-75-73 05:10:00 Test Item Value Reference Range Interpretation Comments Monocytes (test code = Monocytes) 7.3 2.0-12.0 [facility] StationEualwkgTFVSEBFFYI8824-54-76 05:10:00 Test Item Value Reference Range Interpretation Comments Eosinophils (test code = 3.4 See_Comment [A utomated message] The Eosinophils) system which ge nerated this result tra nsmitted reference range : <=4.0. The reference r leo was not used to int erpret this result as normal/abnormal . [facility] StationPeipjtmLINTWDKONR3357-60-19 05:10:00 Test Item Value Reference Range Interpretation Comments Basophils (test code = 0.8 See_Comment [Aut omated message] The Basophils) system which ge nerated this result tra nsmitted reference range : <=1.0. The reference r leo was not used to int erpret this result as normal/abnormal . [facility] StationOqddkpkUGZKDRZIXY8898-50-29 05:10:00 Test Item Value Reference Range Interpretation Comments Neutrophils # (test code = Neutrophils 1.9 1.5-8.1 #) [facility] StationOnccysqXOWBXOKUXZ9194-38-13 05:10:00 Test Item Value Reference Range Interpretation Comments Lymphocytes # (test code = Lymphocytes 0.4 1.0-5.5 #) [facility] StationVyejhwqOAPBOKLXLP5489-40-25 05:10:00 Test Item Value Reference Range Interpretation Comments Monocytes # (test code 0.2 See_Comment [Aut omated message] The = Monocytes #) system which generated this result tra nsmitted reference range : <=0.8. The reference r leo was not used to int erpret this result as normal/abnormal . [facility] StationXepnphiIQUJEMLFNX0531-45-36 05:10:00 Test Item Value Reference Range Interpretation Comments Eosinophils # (test code 0.1 See_Comment [A utomated message] The = Eosinophils #) system whic h generated this result tra nsmitted reference range : <=0.5. The reference r leo was not used to int erpret this result as normal/abnormal . [facility]ATH[facility] ZIUDFHF2411-62-09 05:10:00 Test Item Value Reference Range Interpretation Comments Ca Ion WB (test code = Ca Ion WB) 1.10 1.05-1.25 [facility] [place]IceWEBROID SPLBROJ6606-21-90 05:10:00 Test Item Value Reference Range Interpretation Comments Ca Norm WB (test code = Ca Norm WB) 1.06 1.05-1.25 [facility] EdinburgCircleBuilder UJHHC3237-00-68 05:10:00 Test Item Value Reference Range Interpretation Comments Glucose Lvl (test code = Glucose Lvl) 69 70-99 [facility] [place] [id number] 05:10:00 Test Item Value Reference Range Interpretation Comments BUN (test code = BUN) 29 7-22 [place] [id number] 05:10:00 Test Item Value Reference Range Interpretation Comments Creatinine Lvl (test code = Creatinine 5.14 0.50-1.40 Lvl) [place] 912791-08-09 05:10:00 Test Item Value Reference Range Interpretation Comments Sodium Lvl (test code = Sodium Lvl) 134 135-145 [place] 912791-08-09 05:10:00 Test Item Value Reference Range Interpretation Comments Potassium Lvl (test code = Potassium 5.1 3.5-5.1 Lvl) [place] 912791-08-09 05:10:00 Test Item Value Reference Range Interpretation Comments Chloride Lvl (test code = Chloride Lvl) 98 95-109 [place] 912791-08-09 05:10:00 Test Item Value Reference Range Interpretation Comments CO2 (test code = CO2) 29 24-32 [place] 912791-08-09 05:10:00 Test Item Value Reference Range Interpretation Comments Calcium Lvl (test code = Calcium Lvl) 7.6 8.5-10.5 [place] 912791-08-09 05:10:00 Test Item Value Reference Range Interpretation Comments AGAP (test code = AGAP) 12.1 10.0-20.0 [place] 912791-08-09 05:10:00 Test Item Value Reference Range Interpretation Comments eGFR (test code = eGFR) 10 [place] 912791-08-09 05:10:00 Test Item Value Reference Range Interpretation Comments Magnesium Lvl (test code = Magnesium 2.3 1.8-2.4 Lvl) [place] 912791-08-09 05:10:00 Test Item Value Reference Range Interpretation Comments Phosphorus (test code = Phosphorus) 5.0 2.5-4.5 [place] 008731-08-09 05:10:00 Test Item Value Reference Range Interpretation Comments WBC (test code = WBC) 2.7 3.7-10.4 [place] 008731-08-09 05:10:00 Test Item Value Reference Range Interpretation Comments RBC (test code = RBC) 2.80 4.20-5.40 [place] 008731-08-09 05:10:00 Test Item Value Reference Range Interpretation Comments Hgb (test code = Hgb) 8.5 12.0-16.0 [facility] StationKdenpiuBSBKFNRQJW0572-23-53 05:10:00 Test Item Value Reference Range Interpretation Comments Hct (test code = Hct) 25.7 36.0-48.0 [facility] StationPvutiwhBZXVQTCBMV1737-47-72 05:10:00 Test Item Value Reference Range Interpretation Comments MCV (test code = MCV) 91.7 80.0-98.0 [facility] StationNobaxggRJEIYOGWOF2346-74-76 05:10:00 Test Item Value Reference Range Interpretation Comments MCH (test code = MCH) 30.4 pg 27.0-31.0 [facility] StationDjyasyfRYZQDRVRGX1940-98-22 05:10:00 Test Item Value Reference Range Interpretation Comments MCHC (test code = MCHC) 33.1 32.0-36.0 [facility] StationGdfjzvvSKOHHXBJYH9804-97-59 05:10:00 Test Item Value Reference Range Interpretation Comments RDW (test code = RDW) 19.2 11.5-14.5 [facility] StationIsztcguHLBDPDHGSZ0362-81-21 05:10:00 Test Item Value Reference Range Interpretation Comments Platelet (test code = Platelet) 72 133-450 [facility] StationTpsngqeCJPJHUBKRY3504-15-94 05:10:00 Test Item Value Reference Range Interpretation Comments MPV (test code = MPV) 9.9 7.4-10.4 [facility] StationHwquumhDDFVBGFIMD3835-16-30 05:10:00 Test Item Value Reference Range Interpretation Comments Segs (test code = Segs) 72.6 45.0-75.0 [facility] StationKggkpxlZIRFBRJUXZ3708-95-68 05:10:00 Test Item Value Reference Range Interpretation Comments Lymphocytes (test code = Lymphocytes) 15.9 20.0-40.0 [facility] StationRjkwqsqDOVAXFRISZ9337-55-69 05:10:00 Test Item Value Reference Range Interpretation Comments Monocytes (test code = Monocytes) 7.3 2.0-12.0 [facility] StationCxxvzgaEJSSQPXVUA4624-13-79 05:10:00 Test Item Value Reference Range Interpretation Comments Eosinophils (test code = 3.4 See_Comment [A utomated message] The Eosinophils) system which ge nerated this result tra nsmitted reference range : <=4.0. The reference r leo was not used to int erpret this result as normal/abnormal . [facility] StationLpcaawrVWBGHOKZPN6495-31-04 05:10:00 Test Item Value Reference Range Interpretation Comments Basophils (test code = 0.8 See_Comment [Aut omated message] The Basophils) system which ge nerated this result tra nsmitted reference range : <=1.0. The reference r leo was not used to int erpret this result as normal/abnormal . [facility] StationJqvxzzeTGMCSKPRPA0063-93-00 05:10:00 Test Item Value Reference Range Interpretation Comments Neutrophils # (test code = Neutrophils 1.9 1.5-8.1 #) [facility] StationRifkrxkAWKXPYTXPU4457-84-44 05:10:00 Test Item Value Reference Range Interpretation Comments Lymphocytes # (test code = Lymphocytes 0.4 1.0-5.5 #) [facility] StationOxwyfyyRMQGSVVVLR8385-90-14 05:10:00 Test Item Value Reference Range Interpretation Comments Monocytes # (test code 0.2 See_Comment [Aut omated message] The = Monocytes #) system which generated this result tra nsmitted reference range : <=0.8. The reference r leo was not used to int erpret this result as normal/abnormal . [facility] StationQmyezykWCFVEEALDH6053-13-61 05:10:00 Test Item Value Reference Range Interpretation Comments Eosinophils # (test code 0.1 See_Comment [A utomated message] The = Eosinophils #) system whic h generated this result tra nsmitted reference range : <=0.5. The reference r leo was not used to int erpret this result as normal/abnormal . [facility]ATHY[facility] [id number] 05:10:00 Test Item Value Reference Range Interpretation Comments Ca Ion WB (test code = Ca Ion WB) 1.10 1.05-1.25 [facility] [place] [id number] 05:10:00 Test Item Value Reference Range Interpretation Comments Ca Norm WB (test code = Ca Norm WB) 1.06 1.05-1.25 [facility] [employer] [id number] 05:10:00 Test Item Value Reference Range Interpretation Comments Glucose Lvl (test code = Glucose Lvl) 69 70-99 [facility] [place] [id number] 05:10:00 Test Item Value Reference Range Interpretation Comments BUN (test code = BUN) 29 7-22 [place] 912791-08-09 05:10:00 Test Item Value Reference Range Interpretation Comments Creatinine Lvl (test code = Creatinine 5.14 0.50-1.40 Lvl) [place] 912791-08-09 05:10:00 Test Item Value Reference Range Interpretation Comments Sodium Lvl (test code = Sodium Lvl) 134 135-145 [place] 912791-08-09 05:10:00 Test Item Value Reference Range Interpretation Comments Potassium Lvl (test code = Potassium 5.1 3.5-5.1 Lvl) [place] 912791-08-09 05:10:00 Test Item Value Reference Range Interpretation Comments Chloride Lvl (test code = Chloride Lvl) 98 95-109 [place] 912791-08-09 05:10:00 Test Item Value Reference Range Interpretation Comments CO2 (test code = CO2) 29 24-32 [place] 912791-08-09 05:10:00 Test Item Value Reference Range Interpretation Comments Calcium Lvl (test code = Calcium Lvl) 7.6 8.5-10.5 [place] 912791-08-09 05:10:00 Test Item Value Reference Range Interpretation Comments AGAP (test code = AGAP) 12.1 10.0-20.0 [place] 912791-08-09 05:10:00 Test Item Value Reference Range Interpretation Comments eGFR (test code = eGFR) 10 [place] 912791-08-09 05:10:00 Test Item Value Reference Range Interpretation Comments Magnesium Lvl (test code = Magnesium 2.3 1.8-2.4 Lvl) [place] 912791-08-09 05:10:00 Test Item Value Reference Range Interpretation Comments Phosphorus (test code = Phosphorus) 5.0 2.5-4.5 [place] 008731-08-09 05:10:00 Test Item Value Reference Range Interpretation Comments WBC (test code = WBC) 2.7 3.7-10.4 [place] 008731-08-09 05:10:00 Test Item Value Reference Range Interpretation Comments RBC (test code = RBC) 2.80 4.20-5.40 [place] 008731-08-09 05:10:00 Test Item Value Reference Range Interpretation Comments Hgb (test code = Hgb) 8.5 12.0-16.0 [facility] StationMurutomQRXOBBDRLZ5214-85-75 05:10:00 Test Item Value Reference Range Interpretation Comments Hct (test code = Hct) 25.7 36.0-48.0 [facility] StationFasyysuNYWLYAGOVY0013-49-38 05:10:00 Test Item Value Reference Range Interpretation Comments MCV (test code = MCV) 91.7 80.0-98.0 [facility] StationRgkoflqDHUVKVEWZD5099-94-00 05:10:00 Test Item Value Reference Range Interpretation Comments MCH (test code = MCH) 30.4 pg 27.0-31.0 [facility] StationVfkpwjmXSJDMQDTTQ1431-43-26 05:10:00 Test Item Value Reference Range Interpretation Comments MCHC (test code = MCHC) 33.1 32.0-36.0 [facility] StationMrggwkoVBXRAHXCLG7549-32-36 05:10:00 Test Item Value Reference Range Interpretation Comments RDW (test code = RDW) 19.2 11.5-14.5 [facility] StationOdbbquhANFBRDYIUZ1993-45-33 05:10:00 Test Item Value Reference Range Interpretation Comments Platelet (test code = Platelet) 72 133-450 [facility] StationToxpterBOCAWAFFFI9173-38-56 05:10:00 Test Item Value Reference Range Interpretation Comments MPV (test code = MPV) 9.9 7.4-10.4 [facility] StationQtxrnzxGWIQPSLKRX0209-38-99 05:10:00 Test Item Value Reference Range Interpretation Comments Segs (test code = Segs) 72.6 45.0-75.0 [facility] StationRbmiiqrBIPZZDUSQY5937-90-19 05:10:00 Test Item Value Reference Range Interpretation Comments Lymphocytes (test code = Lymphocytes) 15.9 20.0-40.0 [facility] StationPrmmietMOSIBPYIIK3340-21-53 05:10:00 Test Item Value Reference Range Interpretation Comments Monocytes (test code = Monocytes) 7.3 2.0-12.0 [facility] StationUyyeyjhJQEHQPHOWD1729-67-84 05:10:00 Test Item Value Reference Range Interpretation Comments Eosinophils (test code = 3.4 See_Comment [A utomated message] The Eosinophils) system which ge nerated this result tra nsmitted reference range : <=4.0. The reference r leo was not used to int erpret this result as normal/abnormal . [facility] StationSoahtghEXZRFGKLQS6512-01-43 05:10:00 Test Item Value Reference Range Interpretation Comments Basophils (test code = 0.8 See_Comment [Aut omated message] The Basophils) system which ge nerated this result tra nsmitted reference range : <=1.0. The reference r leo was not used to int erpret this result as normal/abnormal . [facility] StationWyflfdaFTPSTMGIQX7490-58-55 05:10:00 Test Item Value Reference Range Interpretation Comments Neutrophils # (test code = Neutrophils 1.9 1.5-8.1 #) [facility] StationGidhicyVHBCYDOSEW2627-04-70 05:10:00 Test Item Value Reference Range Interpretation Comments Lymphocytes # (test code = Lymphocytes 0.4 1.0-5.5 #) [facility] StationZafgrdjBBFNZRFELZ6703-67-54 05:10:00 Test Item Value Reference Range Interpretation Comments Monocytes # (test code 0.2 See_Comment [Aut omated message] The = Monocytes #) system which generated this result tra nsmitted reference range : <=0.8. The reference r leo was not used to int erpret this result as normal/abnormal . [facility] StationQwkglmqQDHYNJVQDW4625-92-63 05:10:00 Test Item Value Reference Range Interpretation Comments Eosinophils # (test code 0.1 See_Comment [A utomated message] The = Eosinophils #) system whic h generated this result tra nsmitted reference range : <=0.5. The reference r leo was not used to int erpret this result as normal/abnormal . [facility]ATHY[facility] XWGQEWX8245-00-57 05:10:00 Test Item Value Reference Range Interpretation Comments Ca Ion WB (test code = Ca Ion WB) 1.10 1.05-1.25 [facility] [place] [id number] 05:10:00 Test Item Value Reference Range Interpretation Comments Ca Norm WB (test code = Ca Norm WB) 1.06 1.05-1.25 [facility] [employer] [id number] 05:10:00 Test Item Value Reference Range Interpretation Comments Glucose Lvl (test code = Glucose Lvl) 69 70-99 [facility] [place] [id number] 05:10:00 Test Item Value Reference Range Interpretation Comments BUN (test code = BUN) 29 7-22 [place] 912791-08-09 05:10:00 Test Item Value Reference Range Interpretation Comments Creatinine Lvl (test code = Creatinine 5.14 0.50-1.40 Lvl) [place] 912791-08-09 05:10:00 Test Item Value Reference Range Interpretation Comments Sodium Lvl (test code = Sodium Lvl) 134 135-145 [place] 912791-08-09 05:10:00 Test Item Value Reference Range Interpretation Comments Potassium Lvl (test code = Potassium 5.1 3.5-5.1 Lvl) [place] 912791-08-09 05:10:00 Test Item Value Reference Range Interpretation Comments Chloride Lvl (test code = Chloride Lvl) 98 95-109 [place] 912791-08-09 05:10:00 Test Item Value Reference Range Interpretation Comments CO2 (test code = CO2) 29 24-32 [place] 912791-08-09 05:10:00 Test Item Value Reference Range Interpretation Comments Calcium Lvl (test code = Calcium Lvl) 7.6 8.5-10.5 [place] 912791-08-09 05:10:00 Test Item Value Reference Range Interpretation Comments AGAP (test code = AGAP) 12.1 10.0-20.0 [place] 912791-08-09 05:10:00 Test Item Value Reference Range Interpretation Comments eGFR (test code = eGFR) 10 [place] 912791-08-09 05:10:00 Test Item Value Reference Range Interpretation Comments Magnesium Lvl (test code = Magnesium 2.3 1.8-2.4 Lvl) [place] 912791-08-09 05:10:00 Test Item Value Reference Range Interpretation Comments Phosphorus (test code = Phosphorus) 5.0 2.5-4.5 [place] 008731-08-09 05:10:00 Test Item Value Reference Range Interpretation Comments WBC (test code = WBC) 2.7 3.7-10.4 [place] 008731-08-09 05:10:00 Test Item Value Reference Range Interpretation Comments RBC (test code = RBC) 2.80 4.20-5.40 [place] 008731-08-09 05:10:00 Test Item Value Reference Range Interpretation Comments Hgb (test code = Hgb) 8.5 12.0-16.0 [facility] StationVmsigdsNVGYIJTCLP5885-41-00 05:10:00 Test Item Value Reference Range Interpretation Comments Hct (test code = Hct) 25.7 36.0-48.0 [facility] StationDuukvtcWXWXIASWOD1819-78-46 05:10:00 Test Item Value Reference Range Interpretation Comments MCV (test code = MCV) 91.7 80.0-98.0 [facility] StationDqpfwunTEHXSMLHVE1352-90-44 05:10:00 Test Item Value Reference Range Interpretation Comments MCH (test code = MCH) 30.4 pg 27.0-31.0 [facility] StationHsvzfmlBJZVXCIDHF8534-79-74 05:10:00 Test Item Value Reference Range Interpretation Comments MCHC (test code = MCHC) 33.1 32.0-36.0 [facility] StationNjypqzhRUXSZLGRDC8746-70-36 05:10:00 Test Item Value Reference Range Interpretation Comments RDW (test code = RDW) 19.2 11.5-14.5 [facility] StationQhjnaqiQKIZFEPCUV5829-96-29 05:10:00 Test Item Value Reference Range Interpretation Comments Platelet (test code = Platelet) 72 133-450 [facility] StationWincriqOCMHKSWAAB4221-17-26 05:10:00 Test Item Value Reference Range Interpretation Comments MPV (test code = MPV) 9.9 7.4-10.4 [facility] StationWrjofqtJUCTEBTRDE8724-08-49 05:10:00 Test Item Value Reference Range Interpretation Comments Segs (test code = Segs) 72.6 45.0-75.0 [facility] StationFucnaorTYWDPIGNFX4871-71-74 05:10:00 Test Item Value Reference Range Interpretation Comments Lymphocytes (test code = Lymphocytes) 15.9 20.0-40.0 [facility] StationWevcbmpYYTUEFZBNG5295-27-47 05:10:00 Test Item Value Reference Range Interpretation Comments Monocytes (test code = Monocytes) 7.3 2.0-12.0 [facility] StationCnpbrbqHXJMZUCQAY5951-24-33 05:10:00 Test Item Value Reference Range Interpretation Comments Eosinophils (test code = 3.4 See_Comment [A utomated message] The Eosinophils) system which ge nerated this result tra nsmitted reference range : <=4.0. The reference r leo was not used to int erpret this result as normal/abnormal . [facility] StationAscsbdkHBBTYQXLHU2644-65-85 05:10:00 Test Item Value Reference Range Interpretation Comments Basophils (test code = 0.8 See_Comment [Aut omated message] The Basophils) system which ge nerated this result tra nsmitted reference range : <=1.0. The reference r leo was not used to int erpret this result as normal/abnormal . [facility] StationKblszwdWEFSVNAKDT5753-91-30 05:10:00 Test Item Value Reference Range Interpretation Comments Neutrophils # (test code = Neutrophils 1.9 1.5-8.1 #) [facility] StationNptzltkJUKXAGYNGA2893-35-35 05:10:00 Test Item Value Reference Range Interpretation Comments Lymphocytes # (test code = Lymphocytes 0.4 1.0-5.5 #) [facility] StationIpirplnGMCTSWVEEW4456-00-16 05:10:00 Test Item Value Reference Range Interpretation Comments Monocytes # (test code 0.2 See_Comment [Aut omated message] The = Monocytes #) system which generated this result tra nsmitted reference range : <=0.8. The reference r leo was not used to int erpret this result as normal/abnormal . [facility] StationCvbornbHOLKQYMLOR5748-12-11 05:10:00 Test Item Value Reference Range Interpretation Comments Eosinophils # (test code 0.1 See_Comment [A utomated message] The = Eosinophils #) system whic h generated this result tra nsmitted reference range : <=0.5. The reference r leo was not used to int erpret this result as normal/abnormal . [facility]ATHYROID DKGLJSP3769-13-63 05:10:00 Test Item Value Reference Range Interpretation Comments Ca Ion WB (test code = Ca Ion WB) 1.10 1.05-1.25 [facility] [place] [id number] 05:10:00 Test Item Value Reference Range Interpretation Comments Ca Norm WB (test code = Ca Norm WB) 1.06 1.05-1.25 [facility] [place] [id number] 05:10:00 Test Item Value Reference Range Interpretation Comments Glucose Lvl (test code = Glucose Lvl) 69 70-99 [facility] [id number] 05:10:00 Test Item Value Reference Range Interpretation Comments BUN (test code = BUN) 29 7-22 [place] 912791-08-09 05:10:00 Test Item Value Reference Range Interpretation Comments Creatinine Lvl (test code = Creatinine 5.14 0.50-1.40 Lvl) [place] 912791-08-09 05:10:00 Test Item Value Reference Range Interpretation Comments Sodium Lvl (test code = Sodium Lvl) 134 135-145 [place] 912791-08-09 05:10:00 Test Item Value Reference Range Interpretation Comments Potassium Lvl (test code = Potassium 5.1 3.5-5.1 Lvl) [place] 912791-08-09 05:10:00 Test Item Value Reference Range Interpretation Comments Chloride Lvl (test code = Chloride Lvl) 98 95-109 [place] 912791-08-09 05:10:00 Test Item Value Reference Range Interpretation Comments CO2 (test code = CO2) 29 24-32 [place] 912791-08-09 05:10:00 Test Item Value Reference Range Interpretation Comments Calcium Lvl (test code = Calcium Lvl) 7.6 8.5-10.5 [place] 912791-08-09 05:10:00 Test Item Value Reference Range Interpretation Comments AGAP (test code = AGAP) 12.1 10.0-20.0 [place] 912791-08-09 05:10:00 Test Item Value Reference Range Interpretation Comments eGFR (test code = eGFR) 10 [place] 912791-08-09 05:10:00 Test Item Value Reference Range Interpretation Comments Magnesium Lvl (test code = Magnesium 2.3 1.8-2.4 Lvl) [place] 912791-08-09 05:10:00 Test Item Value Reference Range Interpretation Comments Phosphorus (test code = Phosphorus) 5.0 2.5-4.5 [place] 008731-08-09 05:10:00 Test Item Value Reference Range Interpretation Comments WBC (test code = WBC) 2.7 3.7-10.4 [place] 008731-08-09 05:10:00 Test Item Value Reference Range Interpretation Comments RBC (test code = RBC) 2.80 4.20-5.40 [place] 008731-08-09 05:10:00 Test Item Value Reference Range Interpretation Comments Hgb (test code = Hgb) 8.5 12.0-16.0 [facility] StationFzbxecqAKOHDSMANK3718-63-52 05:10:00 Test Item Value Reference Range Interpretation Comments Hct (test code = Hct) 25.7 36.0-48.0 [facility] StationLjoewzkVAWKSOAMFX1120-65-83 05:10:00 Test Item Value Reference Range Interpretation Comments MCV (test code = MCV) 91.7 80.0-98.0 [facility] StationFxhluxdSIAXMTUFIU7831-69-67 05:10:00 Test Item Value Reference Range Interpretation Comments MCH (test code = MCH) 30.4 pg 27.0-31.0 [facility] StationSszenzaHBGEQGLMKI8836-16-06 05:10:00 Test Item Value Reference Range Interpretation Comments MCHC (test code = MCHC) 33.1 32.0-36.0 [facility] StationKhjkvcwSCIUIMTEDT7470-26-06 05:10:00 Test Item Value Reference Range Interpretation Comments RDW (test code = RDW) 19.2 11.5-14.5 [facility] StationJnpapxlEQNZHWDVHI3975-44-67 05:10:00 Test Item Value Reference Range Interpretation Comments Platelet (test code = Platelet) 72 133-450 [facility] StationZfocdtsWCOMNVMXBW1023-28-67 05:10:00 Test Item Value Reference Range Interpretation Comments MPV (test code = MPV) 9.9 7.4-10.4 [facility] StationXibakofYLVDRZDWZK0343-85-80 05:10:00 Test Item Value Reference Range Interpretation Comments Segs (test code = Segs) 72.6 45.0-75.0 [facility] StationXedadpoONSEEBFTRX8869-66-24 05:10:00 Test Item Value Reference Range Interpretation Comments Lymphocytes (test code = Lymphocytes) 15.9 20.0-40.0 [facility] StationIhsoghkKUAEKENCXV0450-76-15 05:10:00 Test Item Value Reference Range Interpretation Comments Monocytes (test code = Monocytes) 7.3 2.0-12.0 [facility] StationMbxbdgtNCHYMHJSEC0070-51-37 05:10:00 Test Item Value Reference Range Interpretation Comments Eosinophils (test code = 3.4 See_Comment [A utomated message] The Eosinophils) system which ge nerated this result tra nsmitted reference range : <=4.0. The reference r leo was not used to int erpret this result as normal/abnormal . [facility] StationOspqkgrPJQKEGHYOK3314-33-19 05:10:00 Test Item Value Reference Range Interpretation Comments Basophils (test code = 0.8 See_Comment [Aut omated message] The Basophils) system which ge nerated this result tra nsmitted reference range : <=1.0. The reference r leo was not used to int erpret this result as normal/abnormal . [facility] StationQixvhsoEXLHCNPNVR2882-26-60 05:10:00 Test Item Value Reference Range Interpretation Comments Neutrophils # (test code = Neutrophils 1.9 1.5-8.1 #) [facility] StationFqwuwpjSVVQGQDYTF7962-14-14 05:10:00 Test Item Value Reference Range Interpretation Comments Lymphocytes # (test code = Lymphocytes 0.4 1.0-5.5 #) [facility] StationEcagxtzOFQKXJZBMQ2084-63-66 05:10:00 Test Item Value Reference Range Interpretation Comments Monocytes # (test code 0.2 See_Comment [Aut omated message] The = Monocytes #) system which generated this result tra nsmitted reference range : <=0.8. The reference r leo was not used to int erpret this result as normal/abnormal . [facility] [facility] [id number] 05:10:00 Test Item Value Reference Range Interpretation Comments Eosinophils # (test code 0.1 See_Comment [A utomated message] The = Eosinophils #) system whic h generated this result tra nsmitted reference range : <=0.5. The reference r leo was not used to int erpret this result as normal/abnormal . [facility] [id number] 05:10:00 Test Item Value Reference Range Interpretation Comments Ca Ion WB (test code = Ca Ion WB) 1.10 1.05-1.25 [id number] 05:10:00 Test Item Value Reference Range Interpretation Comments Ca Norm WB (test code = Ca Norm WB) 1.06 1.05-1.25 [facility]2021-08-08 18:36:00 Test Item Value Reference Range Interpretation Comments C difficile DNA (test Negative (01/26/21 1:36 code = C difficile DNA) PM) [facility]2021-08-08 18:36:00 Test Item Value Reference Range Interpretation Comments C difficile DNA (test Negative (01/26/21 1:36 code = C difficile DNA) PM) [facility]2021-08-08 18:36:00 Test Item Value Reference Range Interpretation Comments C difficile DNA (test Negative (01/26/21 1:36 code = C difficile DNA) PM) [facility]2021-08-08 18:36:00 Test Item Value Reference Range Interpretation Comments C difficile DNA (test Negative (01/26/21 1:36 code = C difficile DNA) PM) [facility]2021-08-08 18:36:00 Test Item Value Reference Range Interpretation Comments C difficile DNA (test Negative (01/26/21 1:36 code = C difficile DNA) PM) [facility]2021-08-08 07:33:00 Test Item Value Reference Range Interpretation Comments Ca Ion WB (test code = Ca Ion WB) 1.12 1.05-1.25 [facility]2021-08-08 07:33:00 Test Item Value Reference Range Interpretation Comments Ca Norm WB (test code = Ca Norm WB) 1.07 1.05-1.25 [facility]2021-08-08 07:33:00 Test Item Value Reference Range Interpretation Comments Ca Ion WB (test code = Ca Ion WB) 1.12 1.05-1.25 [facility]2021-08-08 07:33:00 Test Item Value Reference Range Interpretation Comments Ca Norm WB (test code = Ca Norm WB) 1.07 1.05-1.25 [facility]2021-08-08 07:33:00 Test Item Value Reference Range Interpretation Comments Ca Ion WB (test code = Ca Ion WB) 1.12 1.05-1.25 [facility]2021-08-08 07:33:00 Test Item Value Reference Range Interpretation Comments Ca Norm WB (test code = Ca Norm WB) 1.07 1.05-1.25 [facility]2021-08-08 07:33:00 Test Item Value Reference Range Interpretation Comments Ca Ion WB (test code = Ca Ion WB) 1.12 1.05-1.25 [place] 267531-08-08 07:33:00 Test Item Value Reference Range Interpretation Comments Ca Norm WB (test code = Ca Norm WB) 1.07 1.05-1.25 [place] 267531-08-08 07:33:00 Test Item Value Reference Range Interpretation Comments Ca Ion WB (test code = Ca Ion WB) 1.12 1.05-1.25 [place] 267531-08-08 07:33:00 Test Item Value Reference Range Interpretation Comments Ca Norm WB (test code = Ca Norm WB) 1.07 1.05-1.25 [place] 912791-08-08 07:30:00 Test Item Value Reference Range Interpretation Comments Glucose Lvl (test code = Glucose Lvl) 65 70-99 [place] 912791-08-08 07:30:00 Test Item Value Reference Range Interpretation Comments BUN (test code = BUN) 21 7-22 [place] 912791-08-08 07:30:00 Test Item Value Reference Range Interpretation Comments Creatinine Lvl (test code = Creatinine 4.18 0.50-1.40 Lvl) [place] 912791-08-08 07:30:00 Test Item Value Reference Range Interpretation Comments Sodium Lvl (test code = Sodium Lvl) 136 135-145 [place] 912791-08-08 07:30:00 Test Item Value Reference Range Interpretation Comments Potassium Lvl (test code = Potassium 4.5 3.5-5.1 Lvl) [place] 912791-08-08 07:30:00 Test Item Value Reference Range Interpretation Comments Chloride Lvl (test code = Chloride Lvl) 99 95-109 [place] 912791-08-08 07:30:00 Test Item Value Reference Range Interpretation Comments CO2 (test code = CO2) 31 24-32 [place] 912791-08-08 07:30:00 Test Item Value Reference Range Interpretation Comments AGAP (test code = AGAP) 10.5 10.0-20.0 [place] 912791-08-08 07:30:00 Test Item Value Reference Range Interpretation Comments Calcium Lvl (test code = Calcium Lvl) 7.9 8.5-10.5 [place] 912791-08-08 07:30:00 Test Item Value Reference Range Interpretation Comments eGFR (test code = eGFR) 13 [place] 912791-08-08 07:30:00 Test Item Value Reference Range Interpretation Comments Magnesium Lvl (test code = Magnesium 2.2 1.8-2.4 Lvl) [place] 912791-08-08 07:30:00 Test Item Value Reference Range Interpretation Comments Phosphorus (test code = Phosphorus) 4.4 2.5-4.5 [place] 008731-08-08 07:30:00 Test Item Value Reference Range Interpretation Comments WBC (test code = WBC) 2.3 3.7-10.4 [place] 008731-08-08 07:30:00 Test Item Value Reference Range Interpretation Comments RBC (test code = RBC) 2.88 4.20-5.40 [place] 008731-08-08 07:30:00 Test Item Value Reference Range Interpretation Comments Hgb (test code = Hgb) 8.6 12.0-16.0 [place] 008731-08-08 07:30:00 Test Item Value Reference Range Interpretation Comments Hct (test code = Hct) 26.6 36.0-48.0 [place] 008731-08-08 07:30:00 Test Item Value Reference Range Interpretation Comments MCV (test code = MCV) 92.2 80.0-98.0 [place] 008731-08-08 07:30:00 Test Item Value Reference Range Interpretation Comments MCH (test code = MCH) 29.8 pg 27.0-31.0 [place] 008731-08-08 07:30:00 Test Item Value Reference Range Interpretation Comments MCHC (test code = MCHC) 32.4 32.0-36.0 [place] 008731-08-08 07:30:00 Test Item Value Reference Range Interpretation Comments RDW (test code = RDW) 19.7 11.5-14.5 [place] 008731-08-08 07:30:00 Test Item Value Reference Range Interpretation Comments Platelet (test code = Platelet) 83 133-450 [place] 008731-08-08 07:30:00 Test Item Value Reference Range Interpretation Comments MPV (test code = MPV) 10.2 7.4-10.4 [place] 008731-08-08 07:30:00 Test Item Value Reference Range Interpretation Comments Segs (test code = Segs) 64.0 45.0-75.0 [facility] StationAkljxubQTTMWFTDXN4754-79-64 07:30:00 Test Item Value Reference Range Interpretation Comments Lymphocytes (test code = Lymphocytes) 24.1 20.0-40.0 [facility] StationYwafxneUMVIUQHQGG4729-52-77 07:30:00 Test Item Value Reference Range Interpretation Comments Monocytes (test code = Monocytes) 7.0 2.0-12.0 [facility] StationXsuzgqnGFTMDJERCX9314-47-24 07:30:00 Test Item Value Reference Range Interpretation Comments Eosinophils (test code = 3.7 See_Comment [A utomated message] The Eosinophils) system which ge nerated this result tra nsmitted reference range : <=4.0. The reference r leo was not used to int erpret this result as normal/abnormal . [facility] StationDmgaqbwEFYNTUOMOZ3575-92-61 07:30:00 Test Item Value Reference Range Interpretation Comments Basophils (test code = 1.2 See_Comment [Aut omated message] The Basophils) system which ge nerated this result tra nsmitted reference range : <=1.0. The reference r leo was not used to int erpret this result as normal/abnormal . [facility] StationKpokgzzHZHQNSQMDI2698-91-63 07:30:00 Test Item Value Reference Range Interpretation Comments Neutrophils # (test code = Neutrophils 1.5 1.5-8.1 #) [facility] StationZavoeabAGGTEKZINI9371-67-28 07:30:00 Test Item Value Reference Range Interpretation Comments Lymphocytes # (test code = Lymphocytes 0.6 1.0-5.5 #) [place] 008731-08-08 07:30:00 Test Item Value Reference Range Interpretation Comments Monocytes # (test code 0.2 See_Comment [Aut omated message] The = Monocytes #) system which generated this result tra nsmitted reference range : <=0.8. The reference r leo was not used to int erpret this result as normal/abnormal . [place] 008731-08-08 07:30:00 Test Item Value Reference Range Interpretation Comments Eosinophils # (test code 0.1 See_Comment [A utomated message] The = Eosinophils #) system whic h generated this result tra nsmitted reference range : <=0.5. The reference r leo was not used to int erpret this result as normal/abnormal . [facility] RKJRE8224-25-08 07:30:00 Test Item Value Reference Range Interpretation Comments Glucose Lvl (test code = Glucose Lvl) 65 70-99 [place] 912791-08-08 07:30:00 Test Item Value Reference Range Interpretation Comments BUN (test code = BUN) 21 7-22 [place] 912791-08-08 07:30:00 Test Item Value Reference Range Interpretation Comments Creatinine Lvl (test code = Creatinine 4.18 0.50-1.40 Lvl) [place] 912791-08-08 07:30:00 Test Item Value Reference Range Interpretation Comments Sodium Lvl (test code = Sodium Lvl) 136 135-145 [facility] LabsLAUR[facility] [place] [id number] 07:30:00 Test Item Value Reference Range Interpretation Comments Potassium Lvl (test code = Potassium 4.5 3.5-5.1 Lvl) [place] 912791-08-08 07:30:00 Test Item Value Reference Range Interpretation Comments Chloride Lvl (test code = Chloride Lvl) 99 95-109 [facility] [id number] 07:30:00 Test Item Value Reference Range Interpretation Comments CO2 (test code = CO2) 31 24-32 [place] 912791-08-08 07:30:00 Test Item Value Reference Range Interpretation Comments AGAP (test code = AGAP) 10.5 10.0-20.0 [facility]landF[facility] [id number] 07:30:00 Test Item Value Reference Range Interpretation Comments Calcium Lvl (test code = Calcium Lvl) 7.9 8.5-10.5 [facility] [id number] 07:30:00 Test Item Value Reference Range Interpretation Comments eGFR (test code = eGFR) 13 [place] 912791-08-08 07:30:00 Test Item Value Reference Range Interpretation Comments Magnesium Lvl (test code = Magnesium 2.2 1.8-2.4 Lvl) [place] 912791-08-08 07:30:00 Test Item Value Reference Range Interpretation Comments Phosphorus (test code = Phosphorus) 4.4 2.5-4.5 [facility] StationCnarpbdCKJYPTTWMC0757-72-82 07:30:00 Test Item Value Reference Range Interpretation Comments WBC (test code = WBC) 2.3 3.7-10.4 [facility] StationWzgomaaPLDUQEQNSW9835-18-43 07:30:00 Test Item Value Reference Range Interpretation Comments RBC (test code = RBC) 2.88 4.20-5.40 [facility] StationEwjexosBJKFEUKIWD5062-13-22 07:30:00 Test Item Value Reference Range Interpretation Comments Hgb (test code = Hgb) 8.6 12.0-16.0 [facility] StationOaiexjxRGYNGBWIPJ5051-08-68 07:30:00 Test Item Value Reference Range Interpretation Comments Hct (test code = Hct) 26.6 36.0-48.0 [facility] StationPjpqecrQALLESAHZA5013-53-96 07:30:00 Test Item Value Reference Range Interpretation Comments MCV (test code = MCV) 92.2 80.0-98.0 [facility] StationGxdlrslPAIHRGTCTZ2981-00-78 07:30:00 Test Item Value Reference Range Interpretation Comments MCH (test code = MCH) 29.8 pg 27.0-31.0 [facility] StationLqggyolPKZHQVXYEF5952-31-75 07:30:00 Test Item Value Reference Range Interpretation Comments MCHC (test code = MCHC) 32.4 32.0-36.0 [facility] StationJaubvljFUYRUQKXRV5283-73-91 07:30:00 Test Item Value Reference Range Interpretation Comments RDW (test code = RDW) 19.7 11.5-14.5 [facility] StationYifbsqfBXGUSVAFWD9352-43-81 07:30:00 Test Item Value Reference Range Interpretation Comments Platelet (test code = Platelet) 83 133-450 [facility] StationVtdzejoQWCSFXMSYL6742-83-19 07:30:00 Test Item Value Reference Range Interpretation Comments MPV (test code = MPV) 10.2 7.4-10.4 [facility] StationTspudljRNWPJWBVAH3487-20-32 07:30:00 Test Item Value Reference Range Interpretation Comments Segs (test code = Segs) 64.0 45.0-75.0 [facility] StationQjajfbuEJOEPTDWWM8611-66-10 07:30:00 Test Item Value Reference Range Interpretation Comments Lymphocytes (test code = Lymphocytes) 24.1 20.0-40.0 [place] 008731-08-08 07:30:00 Test Item Value Reference Range Interpretation Comments Monocytes (test code = Monocytes) 7.0 2.0-12.0 [place] 008731-08-08 07:30:00 Test Item Value Reference Range Interpretation Comments Eosinophils (test code = 3.7 See_Comment [A utomated message] The Eosinophils) system which ge nerated this result tra nsmitted reference range : <=4.0. The reference r leo was not used to int erpret this result as normal/abnormal . [place] 008731-08-08 07:30:00 Test Item Value Reference Range Interpretation Comments Basophils (test code = 1.2 See_Comment [Aut omated message] The Basophils) system which ge nerated this result tra nsmitted reference range : <=1.0. The reference r leo was not used to int erpret this result as normal/abnormal . [facility] StationHpeyldwGBDLGCLQQB6770-17-92 07:30:00 Test Item Value Reference Range Interpretation Comments Neutrophils # (test code = Neutrophils 1.5 1.5-8.1 #) [facility] StationXitzmqlFWPQGMFTLL3946-77-11 07:30:00 Test Item Value Reference Range Interpretation Comments Lymphocytes # (test code = Lymphocytes 0.6 1.0-5.5 #) [facility] StationNezvvvlOJVTOJEEVZ3177-20-30 07:30:00 Test Item Value Reference Range Interpretation Comments Monocytes # (test code 0.2 See_Comment [Aut omated message] The = Monocytes #) system which generated this result tra nsmitted reference range : <=0.8. The reference r leo was not used to int erpret this result as normal/abnormal . [place] 008731-08-08 07:30:00 Test Item Value Reference Range Interpretation Comments Eosinophils # (test code 0.1 See_Comment [A utomated message] The = Eosinophils #) system whic h generated this result tra nsmitted reference range : <=0.5. The reference r leo was not used to int erpret this result as normal/abnormal . [facility] [id number] 07:30:00 Test Item Value Reference Range Interpretation Comments Glucose Lvl (test code = Glucose Lvl) 65 70-99 [facility] [place] 931581-08-08 07:30:00 Test Item Value Reference Range Interpretation Comments BUN (test code = BUN) 21 7-22 [place] 912791-08-08 07:30:00 Test Item Value Reference Range Interpretation Comments Creatinine Lvl (test code = Creatinine 4.18 0.50-1.40 Lvl) [place] 912791-08-08 07:30:00 Test Item Value Reference Range Interpretation Comments Sodium Lvl (test code = Sodium Lvl) 136 135-145 [place] 912791-08-08 07:30:00 Test Item Value Reference Range Interpretation Comments Potassium Lvl (test code = Potassium 4.5 3.5-5.1 Lvl) [place] 912791-08-08 07:30:00 Test Item Value Reference Range Interpretation Comments Chloride Lvl (test code = Chloride Lvl) 99 95-109 [place] 912791-08-08 07:30:00 Test Item Value Reference Range Interpretation Comments CO2 (test code = CO2) 31 24-32 [place] 912791-08-08 07:30:00 Test Item Value Reference Range Interpretation Comments AGAP (test code = AGAP) 10.5 10.0-20.0 [place] 912791-08-08 07:30:00 Test Item Value Reference Range Interpretation Comments Calcium Lvl (test code = Calcium Lvl) 7.9 8.5-10.5 [place] 912791-08-08 07:30:00 Test Item Value Reference Range Interpretation Comments eGFR (test code = eGFR) 13 [place] 912791-08-08 07:30:00 Test Item Value Reference Range Interpretation Comments Magnesium Lvl (test code = Magnesium 2.2 1.8-2.4 Lvl) [place] 912791-08-08 07:30:00 Test Item Value Reference Range Interpretation Comments Phosphorus (test code = Phosphorus) 4.4 2.5-4.5 [place] 008731-08-08 07:30:00 Test Item Value Reference Range Interpretation Comments WBC (test code = WBC) 2.3 3.7-10.4 [place] 008731-08-08 07:30:00 Test Item Value Reference Range Interpretation Comments RBC (test code = RBC) 2.88 4.20-5.40 [facility] StationVqliqmlGLFFMOYJSC5642-04-27 07:30:00 Test Item Value Reference Range Interpretation Comments Hgb (test code = Hgb) 8.6 12.0-16.0 [facility] StationVryoabqRCGHSMJSVV5395-16-39 07:30:00 Test Item Value Reference Range Interpretation Comments Hct (test code = Hct) 26.6 36.0-48.0 [facility] StationLfpgrmkFIJBGREFGU1626-65-71 07:30:00 Test Item Value Reference Range Interpretation Comments MCV (test code = MCV) 92.2 80.0-98.0 [facility] StationCdvratgPRMWSOSRKK1404-28-91 07:30:00 Test Item Value Reference Range Interpretation Comments MCH (test code = MCH) 29.8 pg 27.0-31.0 [facility] StationPwarcszAJXHALNCJV4693-05-53 07:30:00 Test Item Value Reference Range Interpretation Comments MCHC (test code = MCHC) 32.4 32.0-36.0 [facility] StationGoknwlzBAEADQEDDM0446-88-37 07:30:00 Test Item Value Reference Range Interpretation Comments RDW (test code = RDW) 19.7 11.5-14.5 [facility] StationEolrlgcJEAHHTHQCZ8666-76-14 07:30:00 Test Item Value Reference Range Interpretation Comments Platelet (test code = Platelet) 83 133-450 [facility] StationMovqcuiBHAHPKPSND9708-43-25 07:30:00 Test Item Value Reference Range Interpretation Comments MPV (test code = MPV) 10.2 7.4-10.4 [facility] StationIktntxzHHJKQMSONV4461-53-99 07:30:00 Test Item Value Reference Range Interpretation Comments Segs (test code = Segs) 64.0 45.0-75.0 [facility] StationFfbcekySAOXZHPHLP9222-53-88 07:30:00 Test Item Value Reference Range Interpretation Comments Lymphocytes (test code = Lymphocytes) 24.1 20.0-40.0 [facility] StationGcnjgxtZPNYCASZMG5168-56-52 07:30:00 Test Item Value Reference Range Interpretation Comments Monocytes (test code = Monocytes) 7.0 2.0-12.0 [facility] StationXcndstqRTUBZIBSCE5054-65-05 07:30:00 Test Item Value Reference Range Interpretation Comments Eosinophils (test code = 3.7 See_Comment [A utomated message] The Eosinophils) system which ge nerated this result tra nsmitted reference range : <=4.0. The reference r leo was not used to int erpret this result as normal/abnormal . [place] 008731-08-08 07:30:00 Test Item Value Reference Range Interpretation Comments Basophils (test code = 1.2 See_Comment [Aut omated message] The Basophils) system which ge nerated this result tra nsmitted reference range : <=1.0. The reference r leo was not used to int erpret this result as normal/abnormal . [place] 008731-08-08 07:30:00 Test Item Value Reference Range Interpretation Comments Neutrophils # (test code = Neutrophils 1.5 1.5-8.1 #) [place] 008731-08-08 07:30:00 Test Item Value Reference Range Interpretation Comments Lymphocytes # (test code = Lymphocytes 0.6 1.0-5.5 #) [place] 008731-08-08 07:30:00 Test Item Value Reference Range Interpretation Comments Monocytes # (test code 0.2 See_Comment [Aut omated message] The = Monocytes #) system which generated this result tra nsmitted reference range : <=0.8. The reference r leo was not used to int erpret this result as normal/abnormal . [place] 008731-08-08 07:30:00 Test Item Value Reference Range Interpretation Comments Eosinophils # (test code 0.1 See_Comment [A utomated message] The = Eosinophils #) system whic h generated this result tra nsmitted reference range : <=0.5. The reference r leo was not used to int erpret this result as normal/abnormal . [place] 912791-08-08 07:30:00 Test Item Value Reference Range Interpretation Comments Glucose Lvl (test code = Glucose Lvl) 65 70-99 [place] 912791-08-08 07:30:00 Test Item Value Reference Range Interpretation Comments BUN (test code = BUN) 21 7-22 [place] 912791-08-08 07:30:00 Test Item Value Reference Range Interpretation Comments Creatinine Lvl (test code = Creatinine 4.18 0.50-1.40 Lvl) [place] 912791-08-08 07:30:00 Test Item Value Reference Range Interpretation Comments Sodium Lvl (test code = Sodium Lvl) 136 135-145 [place] 912791-08-08 07:30:00 Test Item Value Reference Range Interpretation Comments Potassium Lvl (test code = Potassium 4.5 3.5-5.1 Lvl) [place] 912791-08-08 07:30:00 Test Item Value Reference Range Interpretation Comments Chloride Lvl (test code = Chloride Lvl) 99 95-109 [place] 912791-08-08 07:30:00 Test Item Value Reference Range Interpretation Comments CO2 (test code = CO2) 31 24-32 [place] 912791-08-08 07:30:00 Test Item Value Reference Range Interpretation Comments AGAP (test code = AGAP) 10.5 10.0-20.0 [place] 912791-08-08 07:30:00 Test Item Value Reference Range Interpretation Comments Calcium Lvl (test code = Calcium Lvl) 7.9 8.5-10.5 [place] 912791-08-08 07:30:00 Test Item Value Reference Range Interpretation Comments eGFR (test code = eGFR) 13 [place] 912791-08-08 07:30:00 Test Item Value Reference Range Interpretation Comments Magnesium Lvl (test code = Magnesium 2.2 1.8-2.4 Lvl) [place] 912791-08-08 07:30:00 Test Item Value Reference Range Interpretation Comments Phosphorus (test code = Phosphorus) 4.4 2.5-4.5 [place] 008731-08-08 07:30:00 Test Item Value Reference Range Interpretation Comments WBC (test code = WBC) 2.3 3.7-10.4 [place] 008731-08-08 07:30:00 Test Item Value Reference Range Interpretation Comments RBC (test code = RBC) 2.88 4.20-5.40 [place] 008731-08-08 07:30:00 Test Item Value Reference Range Interpretation Comments Hgb (test code = Hgb) 8.6 12.0-16.0 [place] 008731-08-08 07:30:00 Test Item Value Reference Range Interpretation Comments Hct (test code = Hct) 26.6 36.0-48.0 [place] [address]-08-08 07:30:00 Test Item Value Reference Range Interpretation Comments MCV (test code = MCV) 92.2 80.0-98.0 [place] 008731-08-08 07:30:00 Test Item Value Reference Range Interpretation Comments MCH (test code = MCH) 29.8 pg 27.0-31.0 [place] 008731-08-08 07:30:00 Test Item Value Reference Range Interpretation Comments MCHC (test code = MCHC) 32.4 32.0-36.0 [facility] StationZdqsmuzIDHCMSROEI1070-27-92 07:30:00 Test Item Value Reference Range Interpretation Comments RDW (test code = RDW) 19.7 11.5-14.5 [place] 008731-08-08 07:30:00 Test Item Value Reference Range Interpretation Comments Platelet (test code = Platelet) 83 133-450 [facility] StationPfbptymYNYCLFGCPZ8208-88-56 07:30:00 Test Item Value Reference Range Interpretation Comments MPV (test code = MPV) 10.2 7.4-10.4 [facility] StationIeqjychZUJXQAFHJO8318-26-84 07:30:00 Test Item Value Reference Range Interpretation Comments Segs (test code = Segs) 64.0 45.0-75.0 [facility] StationMuozcjuVVXHHRTIBT5102-35-43 07:30:00 Test Item Value Reference Range Interpretation Comments Lymphocytes (test code = Lymphocytes) 24.1 20.0-40.0 [facility] StationPuxbqnrVRQVSAGOOW4468-85-75 07:30:00 Test Item Value Reference Range Interpretation Comments Monocytes (test code = Monocytes) 7.0 2.0-12.0 [facility] StationZlmzfdtSHPANJNRWF2887-50-00 07:30:00 Test Item Value Reference Range Interpretation Comments Eosinophils (test code = 3.7 See_Comment [A utomated message] The Eosinophils) system which ge nerated this result tra nsmitted reference range : <=4.0. The reference r leo was not used to int erpret this result as normal/abnormal . [place] 008731-08-08 07:30:00 Test Item Value Reference Range Interpretation Comments Basophils (test code = 1.2 See_Comment [Aut omated message] The Basophils) system which ge nerated this result tra nsmitted reference range : <=1.0. The reference r leo was not used to int erpret this result as normal/abnormal . [place] [address]-08-08 07:30:00 Test Item Value Reference Range Interpretation Comments Neutrophils # (test code = Neutrophils 1.5 1.5-8.1 #) [place] 008731-08-08 07:30:00 Test Item Value Reference Range Interpretation Comments Lymphocytes # (test code = Lymphocytes 0.6 1.0-5.5 #) [place] [address]-08-08 07:30:00 Test Item Value Reference Range Interpretation Comments Monocytes # (test code 0.2 See_Comment [Aut omated message] The = Monocytes #) system which generated this result tra nsmitted reference range : <=0.8. The reference r leo was not used to int erpret this result as normal/abnormal . [place] [address]-08-08 07:30:00 Test Item Value Reference Range Interpretation Comments Eosinophils # (test code 0.1 See_Comment [A utomated message] The = Eosinophils #) system whic h generated this result tra nsmitted reference range : <=0.5. The reference r leo was not used to int erpret this result as normal/abnormal . [place] 912791-08-08 07:30:00 Test Item Value Reference Range Interpretation Comments Glucose Lvl (test code = Glucose Lvl) 65 70-99 [place] 912791-08-08 07:30:00 Test Item Value Reference Range Interpretation Comments BUN (test code = BUN) 21 7-22 [place] 912791-08-08 07:30:00 Test Item Value Reference Range Interpretation Comments Creatinine Lvl (test code = Creatinine 4.18 0.50-1.40 Lvl) [place] 912791-08-08 07:30:00 Test Item Value Reference Range Interpretation Comments Sodium Lvl (test code = Sodium Lvl) 136 135-145 [place] 912791-08-08 07:30:00 Test Item Value Reference Range Interpretation Comments Potassium Lvl (test code = Potassium 4.5 3.5-5.1 Lvl) [place] 912791-08-08 07:30:00 Test Item Value Reference Range Interpretation Comments Chloride Lvl (test code = Chloride Lvl) 99 95-109 [place] 912791-08-08 07:30:00 Test Item Value Reference Range Interpretation Comments CO2 (test code = CO2) 31 24-32 [place] 912791-08-08 07:30:00 Test Item Value Reference Range Interpretation Comments AGAP (test code = AGAP) 10.5 10.0-20.0 [place] 912791-08-08 07:30:00 Test Item Value Reference Range Interpretation Comments Calcium Lvl (test code = Calcium Lvl) 7.9 8.5-10.5 [place] 912791-08-08 07:30:00 Test Item Value Reference Range Interpretation Comments eGFR (test code = eGFR) 13 [place] 912791-08-08 07:30:00 Test Item Value Reference Range Interpretation Comments Magnesium Lvl (test code = Magnesium 2.2 1.8-2.4 Lvl) [place] 912791-08-08 07:30:00 Test Item Value Reference Range Interpretation Comments Phosphorus (test code = Phosphorus) 4.4 2.5-4.5 [place] 008731-08-08 07:30:00 Test Item Value Reference Range Interpretation Comments WBC (test code = WBC) 2.3 3.7-10.4 [place] 008731-08-08 07:30:00 Test Item Value Reference Range Interpretation Comments RBC (test code = RBC) 2.88 4.20-5.40 [place] 008731-08-08 07:30:00 Test Item Value Reference Range Interpretation Comments Hgb (test code = Hgb) 8.6 12.0-16.0 [place] [address]-08-08 07:30:00 Test Item Value Reference Range Interpretation Comments Hct (test code = Hct) 26.6 36.0-48.0 [place] 008731-08-08 07:30:00 Test Item Value Reference Range Interpretation Comments MCV (test code = MCV) 92.2 80.0-98.0 [place] [address]-08-08 07:30:00 Test Item Value Reference Range Interpretation Comments MCH (test code = MCH) 29.8 pg 27.0-31.0 [place] 008731-08-08 07:30:00 Test Item Value Reference Range Interpretation Comments MCHC (test code = MCHC) 32.4 32.0-36.0 [facility] StationCmbdbecVJASERNQFJ8598-45-84 07:30:00 Test Item Value Reference Range Interpretation Comments RDW (test code = RDW) 19.7 11.5-14.5 [place] 008731-08-08 07:30:00 Test Item Value Reference Range Interpretation Comments Platelet (test code = Platelet) 83 133-450 [facility] StationLyzfdaiCHGNDEYZZG8206-20-03 07:30:00 Test Item Value Reference Range Interpretation Comments MPV (test code = MPV) 10.2 7.4-10.4 [place] 008731-08-08 07:30:00 Test Item Value Reference Range Interpretation Comments Segs (test code = Segs) 64.0 45.0-75.0 [place] 008731-08-08 07:30:00 Test Item Value Reference Range Interpretation Comments Lymphocytes (test code = Lymphocytes) 24.1 20.0-40.0 [facility] StationCpdqjjmYWKMCQCYGQ6664-01-91 07:30:00 Test Item Value Reference Range Interpretation Comments Monocytes (test code = Monocytes) 7.0 2.0-12.0 [facility] StationVztlwygJYUTDXUNCY2732-58-68 07:30:00 Test Item Value Reference Range Interpretation Comments Eosinophils (test code = 3.7 See_Comment [A utomated message] The Eosinophils) system which ge nerated this result tra nsmitted reference range : <=4.0. The reference r leo was not used to int erpret this result as normal/abnormal . [facility] StationOrusxvrAQZQWMBBYT5073-73-20 07:30:00 Test Item Value Reference Range Interpretation Comments Basophils (test code = 1.2 See_Comment [Aut omated message] The Basophils) system which ge nerated this result tra nsmitted reference range : <=1.0. The reference r leo was not used to int erpret this result as normal/abnormal . [facility] StationXynuqygICMYCKUUHL6312-30-31 07:30:00 Test Item Value Reference Range Interpretation Comments Neutrophils # (test code = Neutrophils 1.5 1.5-8.1 #) [facility] StationGwofuhrHIIXOCBDNI0655-21-41 07:30:00 Test Item Value Reference Range Interpretation Comments Lymphocytes # (test code = Lymphocytes 0.6 1.0-5.5 #) [place] 008731-08-08 07:30:00 Test Item Value Reference Range Interpretation Comments Monocytes # (test code 0.2 See_Comment [Aut omated message] The = Monocytes #) system which generated this result tra nsmitted reference range : <=0.8. The reference r leo was not used to int erpret this result as normal/abnormal . [place] 008731-08-08 07:30:00 Test Item Value Reference Range Interpretation Comments Eosinophils # (test code 0.1 See_Comment [A utomated message] The = Eosinophils #) system whic h generated this result tra nsmitted reference range : <=0.5. The reference r leo was not used to int erpret this result as normal/abnormal . [place] 912791-08-07 09:32:00 Test Item Value Reference Range Interpretation Comments Glucose Lvl (test code = Glucose Lvl) 59 70-99 [place] 912791-08-07 09:32:00 Test Item Value Reference Range Interpretation Comments BUN (test code = BUN) 11 7-22 [place] 912791-08-07 09:32:00 Test Item Value Reference Range Interpretation Comments Creatinine Lvl (test code = Creatinine 2.75 0.50-1.40 Lvl) [place] 912791-08-07 09:32:00 Test Item Value Reference Range Interpretation Comments Sodium Lvl (test code = Sodium Lvl) 138 135-145 [place] 912791-08-07 09:32:00 Test Item Value Reference Range Interpretation Comments Potassium Lvl (test code = Potassium 4.1 3.5-5.1 Lvl) [place] 912791-08-07 09:32:00 Test Item Value Reference Range Interpretation Comments Chloride Lvl (test code = Chloride Lvl) 104 95-109 [place] 912791-08-07 09:32:00 Test Item Value Reference Range Interpretation Comments CO2 (test code = CO2) 29 24-32 [place] 912791-08-07 09:32:00 Test Item Value Reference Range Interpretation Comments Calcium Lvl (test code = Calcium Lvl) 8.3 8.5-10.5 [place] 912791-08-07 09:32:00 Test Item Value Reference Range Interpretation Comments AGAP (test code = AGAP) 9.1 10.0-20.0 [place] 537[address]-08-07 09:32:00 Test Item Value Reference Range Interpretation Comments eGFR (test code = eGFR) 21 [place] [address]-08-07 09:32:00 Test Item Value Reference Range Interpretation Comments Magnesium Lvl (test code = Magnesium 2.2 1.8-2.4 Lvl) [place] 912791-08-07 09:32:00 Test Item Value Reference Range Interpretation Comments Phosphorus (test code = Phosphorus) 3.9 2.5-4.5 [place] [address]-08-07 09:32:00 Test Item Value Reference Range Interpretation Comments WBC (test code = WBC) 2.3 3.7-10.4 [place] [address]-08-07 09:32:00 Test Item Value Reference Range Interpretation Comments RBC (test code = RBC) 2.78 4.20-5.40 [place] [address]-08-07 09:32:00 Test Item Value Reference Range Interpretation Comments Hgb (test code = Hgb) 8.4 12.0-16.0 [place] [address]-08-07 09:32:00 Test Item Value Reference Range Interpretation Comments Hct (test code = Hct) 25.2 36.0-48.0 [place] [address]-08-07 09:32:00 Test Item Value Reference Range Interpretation Comments MCV (test code = MCV) 90.5 80.0-98.0 [place] [address]-08-07 09:32:00 Test Item Value Reference Range Interpretation Comments MCH (test code = MCH) 30.4 pg 27.0-31.0 [place] [address]-08-07 09:32:00 Test Item Value Reference Range Interpretation Comments MCHC (test code = MCHC) 33.5 32.0-36.0 [place] 008731-08-07 09:32:00 Test Item Value Reference Range Interpretation Comments RDW (test code = RDW) 19.0 11.5-14.5 [place] 008731-08-07 09:32:00 Test Item Value Reference Range Interpretation Comments Platelet (test code = Platelet) 87 133-450 [facility]ch[facility]fySQXEATWTHL1475[facility]41-21 09:32:00 Test Item Value Reference Range Interpretation Comments MPV (test code = MPV) 10.0 7.4-10.4 [place] 912791-08-07 09:32:00 Test Item Value Reference Range Interpretation Comments Glucose Lvl (test code = Glucose Lvl) 59 70-99 [place] 912791-08-07 09:32:00 Test Item Value Reference Range Interpretation Comments BUN (test code = BUN) 11 7-22 [place] 912791-08-07 09:32:00 Test Item Value Reference Range Interpretation Comments Creatinine Lvl (test code = Creatinine 2.75 0.50-1.40 Lvl) [place] 912791-08-07 09:32:00 Test Item Value Reference Range Interpretation Comments Sodium Lvl (test code = Sodium Lvl) 138 135-145 [place] 912791-08-07 09:32:00 Test Item Value Reference Range Interpretation Comments Potassium Lvl (test code = Potassium 4.1 3.5-5.1 Lvl) [place] 912791-08-07 09:32:00 Test Item Value Reference Range Interpretation Comments Chloride Lvl (test code = Chloride Lvl) 104 95-109 [place] 912791-08-07 09:32:00 Test Item Value Reference Range Interpretation Comments CO2 (test code = CO2) 29 24-32 [place] 912791-08-07 09:32:00 Test Item Value Reference Range Interpretation Comments Calcium Lvl (test code = Calcium Lvl) 8.3 8.5-10.5 [place] 912791-08-07 09:32:00 Test Item Value Reference Range Interpretation Comments AGAP (test code = AGAP) 9.1 10.0-20.0 [place] 912791-08-07 09:32:00 Test Item Value Reference Range Interpretation Comments eGFR (test code = eGFR) 21 [place] 912791-08-07 09:32:00 Test Item Value Reference Range Interpretation Comments Magnesium Lvl (test code = Magnesium 2.2 1.8-2.4 Lvl) [place] 912791-08-07 09:32:00 Test Item Value Reference Range Interpretation Comments Phosphorus (test code = Phosphorus) 3.9 2.5-4.5 [place] 008731-08-07 09:32:00 Test Item Value Reference Range Interpretation Comments WBC (test code = WBC) 2.3 3.7-10.4 [place] 008731-08-07 09:32:00 Test Item Value Reference Range Interpretation Comments RBC (test code = RBC) 2.78 4.20-5.40 [place] 008731-08-07 09:32:00 Test Item Value Reference Range Interpretation Comments Hgb (test code = Hgb) 8.4 12.0-16.0 [place] 008731-08-07 09:32:00 Test Item Value Reference Range Interpretation Comments Hct (test code = Hct) 25.2 36.0-48.0 [place] 008731-08-07 09:32:00 Test Item Value Reference Range Interpretation Comments MCV (test code = MCV) 90.5 80.0-98.0 [place] 008731-08-07 09:32:00 Test Item Value Reference Range Interpretation Comments MCH (test code = MCH) 30.4 pg 27.0-31.0 [place] 008731-08-07 09:32:00 Test Item Value Reference Range Interpretation Comments MCHC (test code = MCHC) 33.5 32.0-36.0 [place] 008731-08-07 09:32:00 Test Item Value Reference Range Interpretation Comments RDW (test code = RDW) 19.0 11.5-14.5 [place] 008731-08-07 09:32:00 Test Item Value Reference Range Interpretation Comments Platelet (test code = Platelet) 87 133-450 [facility] StationBvlewyhJLDHZPJKOJ2600-67-48 09:32:00 Test Item Value Reference Range Interpretation Comments MPV (test code = MPV) 10.0 7.4-10.4 [facility]2021-08-07 09:32:00 Test Item Value Reference Range Interpretation Comments Glucose Lvl (test code = Glucose Lvl) 59 70-99 [place] 912791-08-07 09:32:00 Test Item Value Reference Range Interpretation Comments BUN (test code = BUN) 11 7-22 [place] 912791-08-07 09:32:00 Test Item Value Reference Range Interpretation Comments Creatinine Lvl (test code = Creatinine 2.75 0.50-1.40 Lvl) [place] 912791-08-07 09:32:00 Test Item Value Reference Range Interpretation Comments Sodium Lvl (test code = Sodium Lvl) 138 135-145 [place] [address]-08-07 09:32:00 Test Item Value Reference Range Interpretation Comments Potassium Lvl (test code = Potassium 4.1 3.5-5.1 Lvl) [place] 912791-08-07 09:32:00 Test Item Value Reference Range Interpretation Comments Chloride Lvl (test code = Chloride Lvl) 104 95-109 [place] 912791-08-07 09:32:00 Test Item Value Reference Range Interpretation Comments CO2 (test code = CO2) 29 24-32 [place] 912791-08-07 09:32:00 Test Item Value Reference Range Interpretation Comments Calcium Lvl (test code = Calcium Lvl) 8.3 8.5-10.5 [place] 912791-08-07 09:32:00 Test Item Value Reference Range Interpretation Comments AGAP (test code = AGAP) 9.1 10.0-20.0 [place] 912791-08-07 09:32:00 Test Item Value Reference Range Interpretation Comments eGFR (test code = eGFR) 21 [place] 912791-08-07 09:32:00 Test Item Value Reference Range Interpretation Comments Magnesium Lvl (test code = Magnesium 2.2 1.8-2.4 Lvl) [place] 912791-08-07 09:32:00 Test Item Value Reference Range Interpretation Comments Phosphorus (test code = Phosphorus) 3.9 2.5-4.5 [place] [address]-08-07 09:32:00 Test Item Value Reference Range Interpretation Comments WBC (test code = WBC) 2.3 3.7-10.4 [place] [address]-08-07 09:32:00 Test Item Value Reference Range Interpretation Comments RBC (test code = RBC) 2.78 4.20-5.40 [place] [address]-08-07 09:32:00 Test Item Value Reference Range Interpretation Comments Hgb (test code = Hgb) 8.4 12.0-16.0 [place] [address]-08-07 09:32:00 Test Item Value Reference Range Interpretation Comments Hct (test code = Hct) 25.2 36.0-48.0 [place] 008731-08-07 09:32:00 Test Item Value Reference Range Interpretation Comments MCV (test code = MCV) 90.5 80.0-98.0 [place] 008731-08-07 09:32:00 Test Item Value Reference Range Interpretation Comments MCH (test code = MCH) 30.4 pg 27.0-31.0 [place] 008731-08-07 09:32:00 Test Item Value Reference Range Interpretation Comments MCHC (test code = MCHC) 33.5 32.0-36.0 [place] [address]-08-07 09:32:00 Test Item Value Reference Range Interpretation Comments RDW (test code = RDW) 19.0 11.5-14.5 [place] 008731-08-07 09:32:00 Test Item Value Reference Range Interpretation Comments Platelet (test code = Platelet) 87 133-450 [place] 008731-08-07 09:32:00 Test Item Value Reference Range Interpretation Comments MPV (test code = MPV) 10.0 7.4-10.4 [place] 912791-08-07 09:32:00 Test Item Value Reference Range Interpretation Comments Glucose Lvl (test code = Glucose Lvl) 59 70-99 [place] 912791-08-07 09:32:00 Test Item Value Reference Range Interpretation Comments BUN (test code = BUN) 11 7-22 [place] 912791-08-07 09:32:00 Test Item Value Reference Range Interpretation Comments Creatinine Lvl (test code = Creatinine 2.75 0.50-1.40 Lvl) [place] 912791-08-07 09:32:00 Test Item Value Reference Range Interpretation Comments Sodium Lvl (test code = Sodium Lvl) 138 135-145 [place] 912791-08-07 09:32:00 Test Item Value Reference Range Interpretation Comments Potassium Lvl (test code = Potassium 4.1 3.5-5.1 Lvl) [place] 912791-08-07 09:32:00 Test Item Value Reference Range Interpretation Comments Chloride Lvl (test code = Chloride Lvl) 104 95-109 [place] 912791-08-07 09:32:00 Test Item Value Reference Range Interpretation Comments CO2 (test code = CO2) 29 24-32 [place] [address]-08-07 09:32:00 Test Item Value Reference Range Interpretation Comments Calcium Lvl (test code = Calcium Lvl) 8.3 8.5-10.5 [place] 912791-08-07 09:32:00 Test Item Value Reference Range Interpretation Comments AGAP (test code = AGAP) 9.1 10.0-20.0 [place] 912791-08-07 09:32:00 Test Item Value Reference Range Interpretation Comments eGFR (test code = eGFR) 21 [place] [address]-08-07 09:32:00 Test Item Value Reference Range Interpretation Comments Magnesium Lvl (test code = Magnesium 2.2 1.8-2.4 Lvl) [place] 912791-08-07 09:32:00 Test Item Value Reference Range Interpretation Comments Phosphorus (test code = Phosphorus) 3.9 2.5-4.5 [place] 008731-08-07 09:32:00 Test Item Value Reference Range Interpretation Comments WBC (test code = WBC) 2.3 3.7-10.4 [place] [address]-08-07 09:32:00 Test Item Value Reference Range Interpretation Comments RBC (test code = RBC) 2.78 4.20-5.40 [place] 008731-08-07 09:32:00 Test Item Value Reference Range Interpretation Comments Hgb (test code = Hgb) 8.4 12.0-16.0 [place] [address]-08-07 09:32:00 Test Item Value Reference Range Interpretation Comments Hct (test code = Hct) 25.2 36.0-48.0 [place] [address]-08-07 09:32:00 Test Item Value Reference Range Interpretation Comments MCV (test code = MCV) 90.5 80.0-98.0 [place] [address]-08-07 09:32:00 Test Item Value Reference Range Interpretation Comments MCH (test code = MCH) 30.4 pg 27.0-31.0 [place] 008731-08-07 09:32:00 Test Item Value Reference Range Interpretation Comments MCHC (test code = MCHC) 33.5 32.0-36.0 [place] 008731-08-07 09:32:00 Test Item Value Reference Range Interpretation Comments RDW (test code = RDW) 19.0 11.5-14.5 [place] 008731-08-07 09:32:00 Test Item Value Reference Range Interpretation Comments Platelet (test code = Platelet) 87 133-450 [place] 008731-08-07 09:32:00 Test Item Value Reference Range Interpretation Comments MPV (test code = MPV) 10.0 7.4-10.4 [place] 912791-08-07 09:32:00 Test Item Value Reference Range Interpretation Comments Glucose Lvl (test code = Glucose Lvl) 59 70-99 [place] 912791-08-07 09:32:00 Test Item Value Reference Range Interpretation Comments BUN (test code = BUN) 11 7-22 [place] 912791-08-07 09:32:00 Test Item Value Reference Range Interpretation Comments Creatinine Lvl (test code = Creatinine 2.75 0.50-1.40 Lvl) [place] 912791-08-07 09:32:00 Test Item Value Reference Range Interpretation Comments Sodium Lvl (test code = Sodium Lvl) 138 135-145 [place] 912791-08-07 09:32:00 Test Item Value Reference Range Interpretation Comments Potassium Lvl (test code = Potassium 4.1 3.5-5.1 Lvl) [place] 912791-08-07 09:32:00 Test Item Value Reference Range Interpretation Comments Chloride Lvl (test code = Chloride Lvl) 104 95-109 [place] 912791-08-07 09:32:00 Test Item Value Reference Range Interpretation Comments CO2 (test code = CO2) 29 24-32 [place] 912791-08-07 09:32:00 Test Item Value Reference Range Interpretation Comments Calcium Lvl (test code = Calcium Lvl) 8.3 8.5-10.5 [place] 912791-08-07 09:32:00 Test Item Value Reference Range Interpretation Comments AGAP (test code = AGAP) 9.1 10.0-20.0 [place] 912791-08-07 09:32:00 Test Item Value Reference Range Interpretation Comments eGFR (test code = eGFR) 21 [place] 912791-08-07 09:32:00 Test Item Value Reference Range Interpretation Comments Magnesium Lvl (test code = Magnesium 2.2 1.8-2.4 Lvl) [place] 912791-08-07 09:32:00 Test Item Value Reference Range Interpretation Comments Phosphorus (test code = Phosphorus) 3.9 2.5-4.5 [place] 008731-08-07 09:32:00 Test Item Value Reference Range Interpretation Comments WBC (test code = WBC) 2.3 3.7-10.4 [place] 008731-08-07 09:32:00 Test Item Value Reference Range Interpretation Comments RBC (test code = RBC) 2.78 4.20-5.40 [place] 008731-08-07 09:32:00 Test Item Value Reference Range Interpretation Comments Hgb (test code = Hgb) 8.4 12.0-16.0 [place] 008731-08-07 09:32:00 Test Item Value Reference Range Interpretation Comments Hct (test code = Hct) 25.2 36.0-48.0 [place] 008731-08-07 09:32:00 Test Item Value Reference Range Interpretation Comments MCV (test code = MCV) 90.5 80.0-98.0 [place] [address]-08-07 09:32:00 Test Item Value Reference Range Interpretation Comments MCH (test code = MCH) 30.4 pg 27.0-31.0 [place] 008731-08-07 09:32:00 Test Item Value Reference Range Interpretation Comments MCHC (test code = MCHC) 33.5 32.0-36.0 [place] 008731-08-07 09:32:00 Test Item Value Reference Range Interpretation Comments RDW (test code = RDW) 19.0 11.5-14.5 [place] [address]-08-07 09:32:00 Test Item Value Reference Range Interpretation Comments Platelet (test code = Platelet) 87 133-450 [facility] StationAyjxcxsSHQDBAPDQO3655-49-42 09:32:00 Test Item Value Reference Range Interpretation Comments MPV (test code = MPV) 10.0 7.4-10.4 [facility] LEWFNPD2856-93-51 05:33:00 Test Item Value Reference Range Interpretation Comments ABO/Rh (test code = ABO/Rh) B POS [facility] GMRYUXD9946-30-31 05:33:00 Test Item Value Reference Range Interpretation Comments Antibody Scrn (test Negative (01/24/21 12:33 code = Antibody Scrn) AM) [facility] StationAuixahmSEACAADWLA7264-57-90 05:33:00 Test Item Value Reference Range Interpretation Comments Segs (test code = Segs) 60.2 45.0-75.0 [facility] StationYfazqqzSJRWDMSEJR9833-47-10 05:33:00 Test Item Value Reference Range Interpretation Comments Lymphocytes (test code = Lymphocytes) 28.6 20.0-40.0 [facility] StationEynddxpGWVDODFYLD5749-27-83 05:33:00 Test Item Value Reference Range Interpretation Comments Monocytes (test code = Monocytes) 5.8 2.0-12.0 [facility] StationQvkijcuBOIRWCLMIG5584-33-73 05:33:00 Test Item Value Reference Range Interpretation Comments Eosinophils (test code = 4.2 See_Comment [A utomated message] The Eosinophils) system which ge nerated this result tra nsmitted reference range : <=4.0. The reference r leo was not used to int erpret this result as normal/abnormal . [facility] StationTylqtirYIVNAZSUUA8311-04-00 05:33:00 Test Item Value Reference Range Interpretation Comments Basophils (test code = 1.2 See_Comment [Aut omated message] The Basophils) system which ge nerated this result tra nsmitted reference range : <=1.0. The reference r leo was not used to int erpret this result as normal/abnormal . [facility] StationCniowtgSERAOVUHMC6874-30-52 05:33:00 Test Item Value Reference Range Interpretation Comments Neutrophils # (test code = Neutrophils 2.2 1.5-8.1 #) [facility] StationTqvtxrdUEKMYBZOBN2942-35-64 05:33:00 Test Item Value Reference Range Interpretation Comments Lymphocytes # (test code = Lymphocytes 1.1 1.0-5.5 #) [facility] StationRzivrhfPLELVTGCSD4416-02-70 05:33:00 Test Item Value Reference Range Interpretation Comments Monocytes # (test code 0.2 See_Comment [Aut omated message] The = Monocytes #) system which generated this result tra nsmitted reference range : <=0.8. The reference r leo was not used to int erpret this result as normal/abnormal . [facility] StationLyciszkPQNGYOZORZ4914-50-08 05:33:00 Test Item Value Reference Range Interpretation Comments Eosinophils # (test code 0.2 See_Comment [A utomated message] The = Eosinophils #) system whic h generated this result tra nsmitted reference range : <=0.5. The reference r leo was not used to int erpret this result as normal/abnormal . [facility] [id number] 05:33:00 Test Item Value Reference Range Interpretation Comments ABO/Rh (test code = ABO/Rh) B POS [facility] [id number] 05:33:00 Test Item Value Reference Range Interpretation Comments Antibody Scrn (test Negative (01/24/21 12:33 code = Antibody Scrn) AM) [facility] StationNpcwlvwVQMSLCCRME1941-50-30 05:33:00 Test Item Value Reference Range Interpretation Comments Segs (test code = Segs) 60.2 45.0-75.0 [facility] StationJvcqzsqEGDUQUHGDF8960-40-15 05:33:00 Test Item Value Reference Range Interpretation Comments Lymphocytes (test code = Lymphocytes) 28.6 20.0-40.0 [facility]GulmjzvZNXAIFNWZR6442-31-09 05:33:00 Test Item Value Reference Range Interpretation Comments Monocytes (test code = Monocytes) 5.8 2.0-12.0 [facility] StationMptoftyQMOFXFRYOG1679-29-35 05:33:00 Test Item Value Reference Range Interpretation Comments Eosinophils (test code = 4.2 See_Comment [A utomated message] The Eosinophils) system which ge nerated this result tra nsmitted reference range : <=4.0. The reference r leo was not used to int erpret this result as normal/abnormal . [facility]burgBdxmhxbXYNCBDYGYQ8793-29-92 05:33:00 Test Item Value Reference Range Interpretation Comments Basophils (test code = 1.2 See_Comment [Aut omated message] The Basophils) system which ge nerated this result tra nsmitted reference range : <=1.0. The reference r leo was not used to int erpret this result as normal/abnormal . [facility] StationPzwjuvzPRYHREKZEQ9464-09-67 05:33:00 Test Item Value Reference Range Interpretation Comments Neutrophils # (test code = Neutrophils 2.2 1.5-8.1 #) [facility] StationWougrwuKRYGYMMZWZ8858-44-35 05:33:00 Test Item Value Reference Range Interpretation Comments Lymphocytes # (test code = Lymphocytes 1.1 1.0-5.5 #) [facility] StationQwszdqqZCUVCPGCVC4702-61-57 05:33:00 Test Item Value Reference Range Interpretation Comments Monocytes # (test code 0.2 See_Comment [Aut omated message] The = Monocytes #) system which generated this result tra nsmitted reference range : <=0.8. The reference r leo was not used to int erpret this result as normal/abnormal . [facility] StationWoieuihVGNOIGUWPE0433-69-26 05:33:00 Test Item Value Reference Range Interpretation Comments Eosinophils # (test code 0.2 See_Comment [A utomated message] The = Eosinophils #) system whic h generated this result tra nsmitted reference range : <=0.5. The reference r leo was not used to int erpret this result as normal/abnormal . [facility] [id number] 05:33:00 Test Item Value Reference Range Interpretation Comments ABO/Rh (test code = ABO/Rh) B POS [facility] [id number] 05:33:00 Test Item Value Reference Range Interpretation Comments Antibody Scrn (test Negative (01/24/21 12:33 code = Antibody Scrn) AM) [facility] StationQtndcdyGLJOAZBNZL1855-13-68 05:33:00 Test Item Value Reference Range Interpretation Comments Segs (test code = Segs) 60.2 45.0-75.0 [facility] StationDvoczgmASFVMOIMAF6945-58-74 05:33:00 Test Item Value Reference Range Interpretation Comments Lymphocytes (test code = Lymphocytes) 28.6 20.0-40.0 [facility] StationDbqqtlhIHAASNTUAH6240-45-56 05:33:00 Test Item Value Reference Range Interpretation Comments Monocytes (test code = Monocytes) 5.8 2.0-12.0 [place] 008731-08-06 05:33:00 Test Item Value Reference Range Interpretation Comments Eosinophils (test code = 4.2 See_Comment [A utomated message] The Eosinophils) system which ge nerated this result tra nsmitted reference range : <=4.0. The reference r leo was not used to int erpret this result as normal/abnormal . [facility] StationJldfovlSCTRSUMUKF7624-74-48 05:33:00 Test Item Value Reference Range Interpretation Comments Basophils (test code = 1.2 See_Comment [Aut omated message] The Basophils) system which ge nerated this result tra nsmitted reference range : <=1.0. The reference r leo was not used to int erpret this result as normal/abnormal . [facility] StationKgbcgvlMEEKEVMDCX5764-88-41 05:33:00 Test Item Value Reference Range Interpretation Comments Neutrophils # (test code = Neutrophils 2.2 1.5-8.1 #) [facility] StationTnfxdtiUZHYSEGLTX3800-70-47 05:33:00 Test Item Value Reference Range Interpretation Comments Lymphocytes # (test code = Lymphocytes 1.1 1.0-5.5 #) [facility] StationGshhhinRUGQCFBOTC8908-18-73 05:33:00 Test Item Value Reference Range Interpretation Comments Monocytes # (test code 0.2 See_Comment [Aut omated message] The = Monocytes #) system which generated this result tra nsmitted reference range : <=0.8. The reference r leo was not used to int erpret this result as normal/abnormal . [facility] StationFqaicayICZQVBOBNL0226-58-12 05:33:00 Test Item Value Reference Range Interpretation Comments Eosinophils # (test code 0.2 See_Comment [A utomated message] The = Eosinophils #) system whic h generated this result tra nsmitted reference range : <=0.5. The reference r leo was not used to int erpret this result as normal/abnormal . [facility] LDMNKEX2831-29-72 05:33:00 Test Item Value Reference Range Interpretation Comments ABO/Rh (test code = ABO/Rh) B POS [facility] [id number] 05:33:00 Test Item Value Reference Range Interpretation Comments Antibody Scrn (test Negative (01/24/21 12:33 code = Antibody Scrn) AM) [place] 008731-08-06 05:33:00 Test Item Value Reference Range Interpretation Comments Segs (test code = Segs) 60.2 45.0-75.0 [place] 008731-08-06 05:33:00 Test Item Value Reference Range Interpretation Comments Lymphocytes (test code = Lymphocytes) 28.6 20.0-40.0 [place] 008731-08-06 05:33:00 Test Item Value Reference Range Interpretation Comments Monocytes (test code = Monocytes) 5.8 2.0-12.0 [place] 008731-08-06 05:33:00 Test Item Value Reference Range Interpretation Comments Eosinophils (test code = 4.2 See_Comment [A utomated message] The Eosinophils) system which ge nerated this result tra nsmitted reference range : <=4.0. The reference r leo was not used to int erpret this result as normal/abnormal . [place] 008731-08-06 05:33:00 Test Item Value Reference Range Interpretation Comments Basophils (test code = 1.2 See_Comment [Aut omated message] The Basophils) system which ge nerated this result tra nsmitted reference range : <=1.0. The reference r leo was not used to int erpret this result as normal/abnormal . [place] 008731-08-06 05:33:00 Test Item Value Reference Range Interpretation Comments Neutrophils # (test code = Neutrophils 2.2 1.5-8.1 #) [place] 008731-08-06 05:33:00 Test Item Value Reference Range Interpretation Comments Lymphocytes # (test code = Lymphocytes 1.1 1.0-5.5 #) [place] 008731-08-06 05:33:00 Test Item Value Reference Range Interpretation Comments Monocytes # (test code 0.2 See_Comment [Aut omated message] The = Monocytes #) system which generated this result tra nsmitted reference range : <=0.8. The reference r leo was not used to int erpret this result as normal/abnormal . [place] 008731-08-06 05:33:00 Test Item Value Reference Range Interpretation Comments Eosinophils # (test code 0.2 See_Comment [A utomated message] The = Eosinophils #) system whic h generated this result tra nsmitted reference range : <=0.5. The reference r leo was not used to int erpret this result as normal/abnormal . [facility] [id number] 05:33:00 Test Item Value Reference Range Interpretation Comments ABO/Rh (test code = ABO/Rh) B POS [facility] [id number] 05:33:00 Test Item Value Reference Range Interpretation Comments Antibody Scrn (test Negative (01/24/21 12:33 code = Antibody Scrn) AM) [facility] StationLrortnwECRZPBNWOS9940-34-78 05:33:00 Test Item Value Reference Range Interpretation Comments Segs (test code = Segs) 60.2 45.0-75.0 [facility] StationIkurveeBKFCFWSAXQ7138-89-68 05:33:00 Test Item Value Reference Range Interpretation Comments Lymphocytes (test code = Lymphocytes) 28.6 20.0-40.0 [facility] StationZmzzgbzUBQYUPERKS3092-48-69 05:33:00 Test Item Value Reference Range Interpretation Comments Monocytes (test code = Monocytes) 5.8 2.0-12.0 [facility] StationIbbpyrwJRYUSSGXLL3988-64-26 05:33:00 Test Item Value Reference Range Interpretation Comments Eosinophils (test code = 4.2 See_Comment [A utomated message] The Eosinophils) system which ge nerated this result tra nsmitted reference range : <=4.0. The reference r leo was not used to int erpret this result as normal/abnormal . [facility] StationKsrgmqwSUDNLHLIVD1903-57-74 05:33:00 Test Item Value Reference Range Interpretation Comments Basophils (test code = 1.2 See_Comment [Aut omated message] The Basophils) system which ge nerated this result tra nsmitted reference range : <=1.0. The reference r leo was not used to int erpret this result as normal/abnormal . [facility] StationTiitpawSJZLFYLHZL1261-01-98 05:33:00 Test Item Value Reference Range Interpretation Comments Neutrophils # (test code = Neutrophils 2.2 1.5-8.1 #) [facility] StationHhjoxzwSBHUFETCQW6153-31-59 05:33:00 Test Item Value Reference Range Interpretation Comments Lymphocytes # (test code = Lymphocytes 1.1 1.0-5.5 #) [facility] StationZtzcxvuESHLSVVZHV5594-65-45 05:33:00 Test Item Value Reference Range Interpretation Comments Monocytes # (test code 0.2 See_Comment [Aut omated message] The = Monocytes #) system which generated this result tra nsmitted reference range : <=0.8. The reference r leo was not used to int erpret this result as normal/abnormal . [facility] StationRtxyguzUVGCDQUAVV5613-88-00 05:33:00 Test Item Value Reference Range Interpretation Comments Eosinophils # (test code 0.2 See_Comment [A utomated message] The = Eosinophils #) system whic h generated this result tra nsmitted reference range : <=0.5. The reference r leo was not used to int erpret this result as normal/abnormal . [facility] StationRyopdmqRGWHVOBNTX9665-40-14 05:53:00 Test Item Value Reference Range Interpretation Comments PT (test code = PT) 14.4 s 12.0-14.7 [facility] StationMrilazjTJJZFUDYXA8433-62-02 05:53:00 Test Item Value Reference Range Interpretation Comments INR (test code = INR) 1.13 1 0.85-1.17 [facility] StationTovjegkTFDSNMSNKC9520-67-76 05:53:00 Test Item Value Reference Range Interpretation Comments Fibrinogen Lvl (test code = Fibrinogen 319 230-510 Lvl) [facility] StationNwxwemfFOVFMILPCZ2140-93-86 05:53:00 Test Item Value Reference Range Interpretation Comments Thrombin Time (test code = Thrombin 15.9 s 15.0-21.2 Time) [facility] StationWhwtbouIFNMUAKPGV1278-61-80 05:53:00 Test Item Value Reference Range Interpretation Comments PTT (test code = PTT) 47.0 s 22.9-35.8 [facility] StationPkhbofgGVJMBHFNQD7398-50-79 05:53:00 Test Item Value Reference Range Interpretation Comments D-Dimer (test code = D-Dimer) 0.91 [facility] StationDzuguvlHLHLBHIPDR7577-94-09 05:53:00 Test Item Value Reference Range Interpretation Comments Basophils # (test code 0.1 See_Comment [Aut omated message] The = Basophils #) system which generated this result tra nsmitted reference range : <=0.2. The reference r leo was not used to int erpret this result as normal/abnormal . [facility]burgPARATHYROID IBBAEON5715-05-26 05:53:00 Test Item Value Reference Range Interpretation Comments Ca Ion WB (test code = Ca Ion WB) 1.24 1.05-1.25 [facility] [id number] 05:53:00 Test Item Value Reference Range Interpretation Comments Ca Norm WB (test code = Ca Norm WB) 1.25 1.05-1.25 [place] 008731-08-05 05:53:00 Test Item Value Reference Range Interpretation Comments PT (test code = PT) 14.4 s 12.0-14.7 [place] 008731-08-05 05:53:00 Test Item Value Reference Range Interpretation Comments INR (test code = INR) 1.13 1 0.85-1.17 [place] 008731-08-05 05:53:00 Test Item Value Reference Range Interpretation Comments Fibrinogen Lvl (test code = Fibrinogen 319 230-510 Lvl) [facility] StationDxaldkpNYPOLQPLHP6503-86-13 05:53:00 Test Item Value Reference Range Interpretation Comments Thrombin Time (test code = Thrombin 15.9 s 15.0-21.2 Time) [place] 008731-08-05 05:53:00 Test Item Value Reference Range Interpretation Comments PTT (test code = PTT) 47.0 s 22.9-35.8 [place] 008731-08-05 05:53:00 Test Item Value Reference Range Interpretation Comments D-Dimer (test code = D-Dimer) 0.91 [place] 008731-08-05 05:53:00 Test Item Value Reference Range Interpretation Comments Basophils # (test code 0.1 See_Comment [Aut omated message] The = Basophils #) system which generated this result tra nsmitted reference range : <=0.2. The reference r leo was not used to int erpret this result as normal/abnormal . [facility]2021-08-05 05:53:00 Test Item Value Reference Range Interpretation Comments Ca Ion WB (test code = Ca Ion WB) 1.24 1.05-1.25 [facility]2021-08-05 05:53:00 Test Item Value Reference Range Interpretation Comments Ca Norm WB (test code = Ca Norm WB) 1.25 1.05-1.25 [place] 008731-08-05 05:53:00 Test Item Value Reference Range Interpretation Comments PT (test code = PT) 14.4 s 12.0-14.7 [place] 008731-08-05 05:53:00 Test Item Value Reference Range Interpretation Comments INR (test code = INR) 1.13 1 0.85-1.17 [place] 008731-08-05 05:53:00 Test Item Value Reference Range Interpretation Comments Fibrinogen Lvl (test code = Fibrinogen 319 230-510 Lvl) [place] 008731-08-05 05:53:00 Test Item Value Reference Range Interpretation Comments Thrombin Time (test code = Thrombin 15.9 s 15.0-21.2 Time) [place] 008731-08-05 05:53:00 Test Item Value Reference Range Interpretation Comments PTT (test code = PTT) 47.0 s 22.9-35.8 [place] 008731-08-05 05:53:00 Test Item Value Reference Range Interpretation Comments D-Dimer (test code = D-Dimer) 0.91 [place] 008731-08-05 05:53:00 Test Item Value Reference Range Interpretation Comments Basophils # (test code 0.1 See_Comment [Aut omated message] The = Basophils #) system which generated this result tra nsmitted reference range : <=0.2. The reference r leo was not used to int erpret this result as normal/abnormal . [facility]2021-08-05 05:53:00 Test Item Value Reference Range Interpretation Comments Ca Ion WB (test code = Ca Ion WB) 1.24 1.05-1.25 [place] 267531-08-05 05:53:00 Test Item Value Reference Range Interpretation Comments Ca Norm WB (test code = Ca Norm WB) 1.25 1.05-1.25 [place] 008731-08-05 05:53:00 Test Item Value Reference Range Interpretation Comments PT (test code = PT) 14.4 s 12.0-14.7 [place] 008731-08-05 05:53:00 Test Item Value Reference Range Interpretation Comments INR (test code = INR) 1.13 1 0.85-1.17 [place] 008731-08-05 05:53:00 Test Item Value Reference Range Interpretation Comments Fibrinogen Lvl (test code = Fibrinogen 319 230-510 Lvl) [facility] StationGabqxhaMKMTLFIVZQ6524-26-98 05:53:00 Test Item Value Reference Range Interpretation Comments Thrombin Time (test code = Thrombin 15.9 s 15.0-21.2 Time) [facility] StationAzgpqjoVVMZBLGYKV8454-58-71 05:53:00 Test Item Value Reference Range Interpretation Comments PTT (test code = PTT) 47.0 s 22.9-35.8 [facility] StationCfpstcjGDSEOCFKNC2307-14-57 05:53:00 Test Item Value Reference Range Interpretation Comments D-Dimer (test code = D-Dimer) 0.91 [facility] StationAkwvjcaPZSHKYLEUL3712-51-10 05:53:00 Test Item Value Reference Range Interpretation Comments Basophils # (test code 0.1 See_Comment [Aut omated message] The = Basophils #) system which generated this result tra nsmitted reference range : <=0.2. The reference r leo was not used to int erpret this result as normal/abnormal . [facility]RO[facility] [id number] 05:53:00 Test Item Value Reference Range Interpretation Comments Ca Ion WB (test code = Ca Ion WB) 1.24 1.05-1.25 [facility] AYSWQYJ9179-64-74 05:53:00 Test Item Value Reference Range Interpretation Comments Ca Norm WB (test code = Ca Norm WB) 1.25 1.05-1.25 [facility] StationYehzuvcEAUSOVLZGQ1357-70-98 05:53:00 Test Item Value Reference Range Interpretation Comments PT (test code = PT) 14.4 s 12.0-14.7 [facility] StationYlumxwlPPISKINRUD7416-49-37 05:53:00 Test Item Value Reference Range Interpretation Comments INR (test code = INR) 1.13 1 0.85-1.17 [place] 008731-08-05 05:53:00 Test Item Value Reference Range Interpretation Comments Fibrinogen Lvl (test code = Fibrinogen 319 230-510 Lvl) [facility] StationNttywjeZGJPOLUKLC1545-12-21 05:53:00 Test Item Value Reference Range Interpretation Comments Thrombin Time (test code = Thrombin 15.9 s 15.0-21.2 Time) [facility] StationFadqkkqEVAOSHDCMR5976-06-10 05:53:00 Test Item Value Reference Range Interpretation Comments PTT (test code = PTT) 47.0 s 22.9-35.8 [place] 008731-08-05 05:53:00 Test Item Value Reference Range Interpretation Comments D-Dimer (test code = D-Dimer) 0.91 [place] 008731-08-05 05:53:00 Test Item Value Reference Range Interpretation Comments Basophils # (test code 0.1 See_Comment [Aut omated message] The = Basophils #) system which generated this result tra nsmitted reference range : <=0.2. The reference r leo was not used to int erpret this result as normal/abnormal . [place] 267531-08-05 05:53:00 Test Item Value Reference Range Interpretation Comments Ca Ion WB (test code = Ca Ion WB) 1.24 1.05-1.25 [place] 267531-08-05 05:53:00 Test Item Value Reference Range Interpretation Comments Ca Norm WB (test code = Ca Norm WB) 1.25 1.05-1.25 [facility] [id number] 10:09:00 Test Item Value Reference Range Interpretation Comments ALT (test code = ALT) 49 See_Comment [Auto mated message] The system which ge nerated this result transmit rohit reference range : <=65. The reference range was not used to interpr et this result as reji l/abnormal. [facility] [id number] 10:09:00 Test Item Value Reference Range Interpretation Comments Albumin Lvl (test code = Albumin Lvl) 2.8 3.5-5.0 [facility] [id number] 10:09:00 Test Item Value Reference Range Interpretation Comments Alk Phos (test code = Alk Phos) 41 39-136 [facility] [id number] 10:09:00 Test Item Value Reference Range Interpretation Comments Bili Direct (test code 0.2 See_Comment [Aut omated message] The = Bili Direct) system which generated this result tra nsmitted reference range : <=0.3. The reference r leo was not used to int erpret this result as reji l/abnormal. [facility] [id number] 10:09:00 Test Item Value Reference Range Interpretation Comments Bili Total (test code = Bili Total) 0.6 0.2-1.3 [facility] [id number] 10:09:00 Test Item Value Reference Range Interpretation Comments Bili Indirect (test 0.4 See_Comment [Automa rohit message] The code = Bili Indirect) system which generated this result tra nsmitted reference range : <=1.0. The reference r leo was not used to int erpret this result as normal/abnormal . [facility] [id number] 10:09:00 Test Item Value Reference Range Interpretation Comments Total Protein (test code = Total 5.6 6.4-8.4 Protein) [facility]burg[facility] [id number] 10:09:00 Test Item Value Reference Range Interpretation Comments AST (test code = AST) 33 See_Comment [Auto mated message] The system which ge nerated this result transmit rohit reference range : <=37. The reference range was not used to interpr et this result as reji l/abnormal. [facility] [id number] 10:09:00 Test Item Value Reference Range Interpretation Comments Globulin (test code = Globulin) 2.8 2.7-4.2 [facility] [id number] 10:09:00 Test Item Value Reference Range Interpretation Comments A/G Ratio (test code = A/G Ratio) 1.0 1 0.7-1.6 [facility]burg[facility] [id number] 10:09:00 Test Item Value Reference Range Interpretation Comments Amylase Lvl (test code = Amylase Lvl) 19 25-115 [facility] [id number] 10:09:00 Test Item Value Reference Range Interpretation Comments Lipase Lvl (test code = Lipase Lvl) no gt 73-393 [facility]burgAmtvjjkCXPOMZMOPW9421-22-29 10:09:00 Test Item Value Reference Range Interpretation Comments PTT (test code = PTT) 41.4 s 22.9-35.8 [facility]inburgDnnlzpcOEXXBKCTES5116-65-44 10:09:00 Test Item Value Reference Range Interpretation Comments PT (test code = PT) 15.4 s 12.0-14.7 [facility]burgXhjnmyoBTJBUFPURS0436-97-40 10:09:00 Test Item Value Reference Range Interpretation Comments INR (test code = INR) 1.24 1 0.85-1.17 [facility]burgBrgaawpBMTTBUIZDJ4817-30-42 10:09:00 Test Item Value Reference Range Interpretation Comments Fibrinogen Lvl (test code = Fibrinogen 312 230-510 Lvl) [facility] StationIrlnnqcRPDREMUTVP2801-11-88 10:09:00 Test Item Value Reference Range Interpretation Comments Thrombin Time (test code = Thrombin 16.6 s 15.0-21.2 Time) [facility] StationXybfumnXMQOMQLYSM9906-54-32 10:09:00 Test Item Value Reference Range Interpretation Comments D-Dimer (test code = D-Dimer) 4.91 [facility] StationUixdyrmRURYTPBJKN5711-10-76 10:09:00 Test Item Value Reference Range Interpretation Comments Basophils # (test code 0.1 See_Comment [Aut omated message] The = Basophils #) system which generated this result tra nsmitted reference range : <=0.2. The reference r leo was not used to int erpret this result as normal/abnormal . [facility] [id number] 10:09:00 Test Item Value Reference Range Interpretation Comments Hgb A1C (test code = Hgb A1C) 5.6 [facility]burg[facility] [id number] 10:09:00 Test Item Value Reference Range Interpretation Comments ALT (test code = ALT) 49 See_Comment [Auto mated message] The system which ge nerated this result transmit rohit reference range : <=65. The reference range was not used to interpr et this result as reji l/abnormal. [facility] [id number] 10:09:00 Test Item Value Reference Range Interpretation Comments Albumin Lvl (test code = Albumin Lvl) 2.8 3.5-5.0 [facility] [id number] 10:09:00 Test Item Value Reference Range Interpretation Comments Alk Phos (test code = Alk Phos) 41 39-136 [facility] [id number] 10:09:00 Test Item Value Reference Range Interpretation Comments Bili Direct (test code 0.2 See_Comment [Aut omated message] The = Bili Direct) system which generated this result tra nsmitted reference range : <=0.3. The reference r leo was not used to int erpret this result as reji l/abnormal. [facility] [id number] 10:09:00 Test Item Value Reference Range Interpretation Comments Bili Total (test code = Bili Total) 0.6 0.2-1.3 [facility] [id number] 10:09:00 Test Item Value Reference Range Interpretation Comments Bili Indirect (test 0.4 See_Comment [Automa rohit message] The code = Bili Indirect) system which generated this result tra nsmitted reference range : <=1.0. The reference r leo was not used to int erpret this result as normal/abnormal . [facility] [employer] [id number] 10:09:00 Test Item Value Reference Range Interpretation Comments Total Protein (test code = Total 5.6 6.4-8.4 Protein) [facility] [id number] 10:09:00 Test Item Value Reference Range Interpretation Comments AST (test code = AST) 33 See_Comment [Auto mated message] The system which ge nerated this result transmit rohit reference range : <=37. The reference range was not used to interpr et this result as reji l/abnormal. [facility] [employer] [id number] 10:09:00 Test Item Value Reference Range Interpretation Comments Globulin (test code = Globulin) 2.8 2.7-4.2 [facility] [employer] [id number] 10:09:00 Test Item Value Reference Range Interpretation Comments A/G Ratio (test code = A/G Ratio) 1.0 1 0.7-1.6 [facility] [id number] 10:09:00 Test Item Value Reference Range Interpretation Comments Amylase Lvl (test code = Amylase Lvl) 19 25-115 [facility] [employer] [id number] 10:09:00 Test Item Value Reference Range Interpretation Comments Lipase Lvl (test code = Lipase Lvl) no gt 73-393 [facility]landSryegieEWWITZVUED7763-30-25 10:09:00 Test Item Value Reference Range Interpretation Comments PTT (test code = PTT) 41.4 s 22.9-35.8 [facility]landKjwsyzbNRROLPLZOD6783-13-31 10:09:00 Test Item Value Reference Range Interpretation Comments PT (test code = PT) 15.4 s 12.0-14.7 [facility] PearlandXbpgxyySGUAFZKIQY4501-61-94 10:09:00 Test Item Value Reference Range Interpretation Comments INR (test code = INR) 1.24 1 0.85-1.17 [place] 008731-08-04 10:09:00 Test Item Value Reference Range Interpretation Comments Fibrinogen Lvl (test code = Fibrinogen 312 230-510 Lvl) [facility] StationXofunanVCWRYOJLEF6988-06-56 10:09:00 Test Item Value Reference Range Interpretation Comments Thrombin Time (test code = Thrombin 16.6 s 15.0-21.2 Time) [facility] StationGvqqnicOQQZLFIAFC0855-71-95 10:09:00 Test Item Value Reference Range Interpretation Comments D-Dimer (test code = D-Dimer) 4.91 [place] [address]-08-04 10:09:00 Test Item Value Reference Range Interpretation Comments Basophils # (test code 0.1 See_Comment [Aut omated message] The = Basophils #) system which generated this result tra nsmitted reference range : <=0.2. The reference r leo was not used to int erpret this result as normal/abnormal . [facility] [id number] 10:09:00 Test Item Value Reference Range Interpretation Comments Hgb A1C (test code = Hgb A1C) 5.6 [facility] [id number] 10:09:00 Test Item Value Reference Range Interpretation Comments ALT (test code = ALT) 49 See_Comment [Auto mated message] The system which ge nerated this result transmit rohit reference range : <=65. The reference range was not used to interpr et this result as reji l/abnormal. [facility] [id number] 10:09:00 Test Item Value Reference Range Interpretation Comments Albumin Lvl (test code = Albumin Lvl) 2.8 3.5-5.0 [facility] [id number] 10:09:00 Test Item Value Reference Range Interpretation Comments Alk Phos (test code = Alk Phos) 41 39-136 [facility] [id number] 10:09:00 Test Item Value Reference Range Interpretation Comments Bili Direct (test code 0.2 See_Comment [Aut omated message] The = Bili Direct) system which generated this result tra nsmitted reference range : <=0.3. The reference r leo was not used to int erpret this result as reji l/abnormal. [facility] [id number] 10:09:00 Test Item Value Reference Range Interpretation Comments Bili Total (test code = Bili Total) 0.6 0.2-1.3 [facility] [id number] 10:09:00 Test Item Value Reference Range Interpretation Comments Bili Indirect (test 0.4 See_Comment [Automa rohit message] The code = Bili Indirect) system which generated this result tra nsmitted reference range : <=1.0. The reference r leo was not used to int erpret this result as normal/abnormal . [facility] [id number] 10:09:00 Test Item Value Reference Range Interpretation Comments Total Protein (test code = Total 5.6 6.4-8.4 Protein) [facility] [id number] 10:09:00 Test Item Value Reference Range Interpretation Comments AST (test code = AST) 33 See_Comment [Auto mated message] The system which ge nerated this result transmit rohit reference range : <=37. The reference range was not used to interpr et this result as reji l/abnormal. [facility] [id number] 10:09:00 Test Item Value Reference Range Interpretation Comments Globulin (test code = Globulin) 2.8 2.7-4.2 [facility] [id number] 10:09:00 Test Item Value Reference Range Interpretation Comments A/G Ratio (test code = A/G Ratio) 1.0 1 0.7-1.6 [facility] [id number] 10:09:00 Test Item Value Reference Range Interpretation Comments Amylase Lvl (test code = Amylase Lvl) 19 25-115 [facility] [id number] 10:09:00 Test Item Value Reference Range Interpretation Comments Lipase Lvl (test code = Lipase Lvl) no gt 73-393 [facility]burgKvzcjotQTURTSNLWE7721-78-21 10:09:00 Test Item Value Reference Range Interpretation Comments PTT (test code = PTT) 41.4 s 22.9-35.8 [facility]burgHwopnnnASROXGZZVR6483-31-10 10:09:00 Test Item Value Reference Range Interpretation Comments PT (test code = PT) 15.4 s 12.0-14.7 [facility]landAuqafthMYAXXXLXDK2527-61-90 10:09:00 Test Item Value Reference Range Interpretation Comments INR (test code = INR) 1.24 1 0.85-1.17 [facility] StationFtxyujxZTBYGBORAE0848-18-35 10:09:00 Test Item Value Reference Range Interpretation Comments Fibrinogen Lvl (test code = Fibrinogen 312 230-510 Lvl) [facility] StationXchwgzrEXWSLSXQUD6533-40-86 10:09:00 Test Item Value Reference Range Interpretation Comments Thrombin Time (test code = Thrombin 16.6 s 15.0-21.2 Time) [facility] StationGbkonmoKADETDZNSH6791-43-00 10:09:00 Test Item Value Reference Range Interpretation Comments D-Dimer (test code = D-Dimer) 4.91 [facility] StationVcdnsuhHCLNMXDVKV1107-03-44 10:09:00 Test Item Value Reference Range Interpretation Comments Basophils # (test code 0.1 See_Comment [Aut omated message] The = Basophils #) system which generated this result tra nsmitted reference range : <=0.2. The reference r leo was not used to int erpret this result as normal/abnormal . [facility] [id number] 10:09:00 Test Item Value Reference Range Interpretation Comments Hgb A1C (test code = Hgb A1C) 5.6 [facility] [id number] 10:09:00 Test Item Value Reference Range Interpretation Comments ALT (test code = ALT) 49 See_Comment [Auto mated message] The system which ge nerated this result transmit rohit reference range : <=65. The reference range was not used to interpr et this result as reji l/abnormal. [facility] [id number] 10:09:00 Test Item Value Reference Range Interpretation Comments Albumin Lvl (test code = Albumin Lvl) 2.8 3.5-5.0 [facility] [id number] 10:09:00 Test Item Value Reference Range Interpretation Comments Alk Phos (test code = Alk Phos) 41 39-136 [facility] [id number] 10:09:00 Test Item Value Reference Range Interpretation Comments Bili Direct (test code 0.2 See_Comment [Aut omated message] The = Bili Direct) system which generated this result tra nsmitted reference range : <=0.3. The reference r leo was not used to int erpret this result as reji l/abnormal. [facility] [id number] 10:09:00 Test Item Value Reference Range Interpretation Comments Bili Total (test code = Bili Total) 0.6 0.2-1.3 [facility] [id number] 10:09:00 Test Item Value Reference Range Interpretation Comments Bili Indirect (test 0.4 See_Comment [Automa rohit message] The code = Bili Indirect) system which generated this result tra nsmitted reference range : <=1.0. The reference r leo was not used to int erpret this result as normal/abnormal . [facility] [id number] 10:09:00 Test Item Value Reference Range Interpretation Comments Total Protein (test code = Total 5.6 6.4-8.4 Protein) [facility] [id number] 10:09:00 Test Item Value Reference Range Interpretation Comments AST (test code = AST) 33 See_Comment [Auto mated message] The system which ge nerated this result transmit rohit reference range : <=37. The reference range was not used to interpr et this result as reji l/abnormal. [facility] [id number] 10:09:00 Test Item Value Reference Range Interpretation Comments Globulin (test code = Globulin) 2.8 2.7-4.2 [facility] [id number] 10:09:00 Test Item Value Reference Range Interpretation Comments A/G Ratio (test code = A/G Ratio) 1.0 1 0.7-1.6 [facility] [id number] 10:09:00 Test Item Value Reference Range Interpretation Comments Amylase Lvl (test code = Amylase Lvl) 19 25-115 [facility] [id number] 10:09:00 Test Item Value Reference Range Interpretation Comments Lipase Lvl (test code = Lipase Lvl) no gt 73-393 [facility] EdinburgZurxssnCVJUCCLGTM3662-14-62 10:09:00 Test Item Value Reference Range Interpretation Comments PTT (test code = PTT) 41.4 s 22.9-35.8 [facility] EdinburgWzfsnkdGPMJZZKNLV6725-50-92 10:09:00 Test Item Value Reference Range Interpretation Comments PT (test code = PT) 15.4 s 12.0-14.7 [facility] PearlandZnklgdpTVYKUKSQJD0648-19-01 10:09:00 Test Item Value Reference Range Interpretation Comments INR (test code = INR) 1.24 1 0.85-1.17 [facility]inburgIvvnmzuNLBUNDDSSR0650-01-47 10:09:00 Test Item Value Reference Range Interpretation Comments Fibrinogen Lvl (test code = Fibrinogen 312 230-510 Lvl) [facility] StationAghehccNNYYOUVEDA4860-36-88 10:09:00 Test Item Value Reference Range Interpretation Comments Thrombin Time (test code = Thrombin 16.6 s 15.0-21.2 Time) [facility] StationOhimcblQNKTOAEDOC1443-20-71 10:09:00 Test Item Value Reference Range Interpretation Comments D-Dimer (test code = D-Dimer) 4.91 [facility] StationScijnvwTELPMZPALA8941-63-45 10:09:00 Test Item Value Reference Range Interpretation Comments Basophils # (test code 0.1 See_Comment [Aut omated message] The = Basophils #) system which generated this result tra nsmitted reference range : <=0.2. The reference r leo was not used to int erpret this result as normal/abnormal . [facility] [id number] 10:09:00 Test Item Value Reference Range Interpretation Comments Hgb A1C (test code = Hgb A1C) 5.6 [facility] [id number] 10:09:00 Test Item Value Reference Range Interpretation Comments ALT (test code = ALT) 49 See_Comment [Auto mated message] The system which ge nerated this result transmit rohit reference range : <=65. The reference range was not used to interpr et this result as reji l/abnormal. [facility] [id number] 10:09:00 Test Item Value Reference Range Interpretation Comments Albumin Lvl (test code = Albumin Lvl) 2.8 3.5-5.0 [facility] [id number] 10:09:00 Test Item Value Reference Range Interpretation Comments Alk Phos (test code = Alk Phos) 41 39-136 [facility] [id number] 10:09:00 Test Item Value Reference Range Interpretation Comments Bili Direct (test code 0.2 See_Comment [Aut omated message] The = Bili Direct) system which generated this result tra nsmitted reference range : <=0.3. The reference r leo was not used to int erpret this result as reji l/abnormal. [facility] [id number] 10:09:00 Test Item Value Reference Range Interpretation Comments Bili Total (test code = Bili Total) 0.6 0.2-1.3 [facility] [id number] 10:09:00 Test Item Value Reference Range Interpretation Comments Bili Indirect (test 0.4 See_Comment [Automa rohit message] The code = Bili Indirect) system which generated this result tra nsmitted reference range : <=1.0. The reference r leo was not used to int erpret this result as normal/abnormal . [facility] [id number] 10:09:00 Test Item Value Reference Range Interpretation Comments Total Protein (test code = Total 5.6 6.4-8.4 Protein) [facility] [id number] 10:09:00 Test Item Value Reference Range Interpretation Comments AST (test code = AST) 33 See_Comment [Auto mated message] The system which ge nerated this result transmit rohit reference range : <=37. The reference range was not used to interpr et this result as reji l/abnormal. [facility] [id number] 10:09:00 Test Item Value Reference Range Interpretation Comments Globulin (test code = Globulin) 2.8 2.7-4.2 [facility] [id number] 10:09:00 Test Item Value Reference Range Interpretation Comments A/G Ratio (test code = A/G Ratio) 1.0 1 0.7-1.6 [facility] [id number] 10:09:00 Test Item Value Reference Range Interpretation Comments Amylase Lvl (test code = Amylase Lvl) 19 25-115 [facility] [id number] 10:09:00 Test Item Value Reference Range Interpretation Comments Lipase Lvl (test code = Lipase Lvl) no gt 73-393 [facility] PearlandTjnmtxpALROIAJWJP2976-97-09 10:09:00 Test Item Value Reference Range Interpretation Comments PTT (test code = PTT) 41.4 s 22.9-35.8 [facility] PearlandTyqkpgsFQJHXGMMYG3883-25-47 10:09:00 Test Item Value Reference Range Interpretation Comments PT (test code = PT) 15.4 s 12.0-14.7 [facility] PearlandWbzomfkLCIVRNTQSB3629-69-85 10:09:00 Test Item Value Reference Range Interpretation Comments INR (test code = INR) 1.24 1 0.85-1.17 [facility] StationLkfwoveILYDAXCYMK4062-61-18 10:09:00 Test Item Value Reference Range Interpretation Comments Fibrinogen Lvl (test code = Fibrinogen 312 230-510 Lvl) [facility] StationSmmmwatGGEIEIMTYU8525-58-60 10:09:00 Test Item Value Reference Range Interpretation Comments Thrombin Time (test code = Thrombin 16.6 s 15.0-21.2 Time) [facility] StationWacexztRLCNHAXYKG9798-30-38 10:09:00 Test Item Value Reference Range Interpretation Comments D-Dimer (test code = D-Dimer) 4.91 [facility] StationHksjfzyFBUYZEGVGY6966-78-36 10:09:00 Test Item Value Reference Range Interpretation Comments Basophils # (test code 0.1 See_Comment [Aut omated message] The = Basophils #) system which generated this result tra nsmitted reference range : <=0.2. The reference r leo was not used to int erpret this result as normal/abnormal . [facility] BQVDVYGEG7724-80-29 10:09:00 Test Item Value Reference Range Interpretation Comments Hgb A1C (test code = Hgb A1C) 5.6 [facility]burgCHEM [id number] 09:07:00 Test Item Value Reference Range Interpretation Comments Amylase Lvl (test code = Amylase Lvl) 4 25-115 [facility] StationJvqnhevUZQQYZOOQE8141-47-29 09:07:00 Test Item Value Reference Range Interpretation Comments Thrombin Time (test code = Thrombin 18.0 s 15.0-21.2 Time) [facility] StationMnjcfwjINMPVVBMMJ2917-93-39 09:07:00 Test Item Value Reference Range Interpretation Comments PT (test code = PT) 24.6 s 12.0-14.7 [place] 008731-08-04 09:07:00 Test Item Value Reference Range Interpretation Comments INR (test code = INR) 2.31 1 0.85-1.17 [facility] StationQvowhayJEHJVKSISE6822-79-06 09:07:00 Test Item Value Reference Range Interpretation Comments PTT (test code = PTT) 57.5 s 22.9-35.8 [facility] StationQuuizqdXYTYPKIIGX3985-46-79 09:07:00 Test Item Value Reference Range Interpretation Comments Fibrinogen Lvl (test code = Fibrinogen 125 230-510 Lvl) [facility] StationHamrlfbQBOSJUGFOL6479-29-26 09:07:00 Test Item Value Reference Range Interpretation Comments D-Dimer (test code = D-Dimer) 2.28 [facility]2021-08-04 09:07:00 Test Item Value Reference Range Interpretation Comments Amylase Lvl (test code = Amylase Lvl) 4 [facility] StationWmgaffnKSTUNWKDHQ4720-43-80 09:07:00 Test Item Value Reference Range Interpretation Comments Thrombin Time (test code = Thrombin 18.0 s 15.0-21.2 Time) [facility] StationDlthakmYXQIHLJSHN0212-89-22 09:07:00 Test Item Value Reference Range Interpretation Comments PT (test code = PT) 24.6 s 12.0-14.7 [facility] StationFukndzzIBIFOOQZEV3328-05-63 09:07:00 Test Item Value Reference Range Interpretation Comments INR (test code = INR) 2.31 1 0.85-1.17 [facility] StationVfqbopfGYJQDSNKTV8766-79-96 09:07:00 Test Item Value Reference Range Interpretation Comments PTT (test code = PTT) 57.5 s 22.9-35.8 [facility] StationEceivvkRNPFKHSAAU8698-08-61 09:07:00 Test Item Value Reference Range Interpretation Comments Fibrinogen Lvl (test code = Fibrinogen 125 230-510 Lvl) [facility] StationCyeiidoIOIZTJOKXU8472-32-95 09:07:00 Test Item Value Reference Range Interpretation Comments D-Dimer (test code = D-Dimer) 2.28 [facility]2021-08-04 09:07:00 Test Item Value Reference Range Interpretation Comments Amylase Lvl (test code = Amylase Lvl) 4 - [facility] StationQgcppfhUDUNZVOPZC1113-46-54 09:07:00 Test Item Value Reference Range Interpretation Comments Thrombin Time (test code = Thrombin 18.0 s 15.0-21.2 Time) [facility] StationBxbvptdRDTXCTCZTD0906-27-03 09:07:00 Test Item Value Reference Range Interpretation Comments PT (test code = PT) 24.6 s 12.0-14.7 [place] 008731-08-04 09:07:00 Test Item Value Reference Range Interpretation Comments INR (test code = INR) 2.31 1 0.85-1.17 [place] 008731-08-04 09:07:00 Test Item Value Reference Range Interpretation Comments PTT (test code = PTT) 57.5 s 22.9-35.8 [facility] StationQdrxumyRCCYJKJXAW1114-14-40 09:07:00 Test Item Value Reference Range Interpretation Comments Fibrinogen Lvl (test code = Fibrinogen 125 230-510 Lvl) [facility] StationKtrgsqpGCVHFPBYKR3841-97-82 09:07:00 Test Item Value Reference Range Interpretation Comments D-Dimer (test code = D-Dimer) 2.28 [facility]2021-08-04 09:07:00 Test Item Value Reference Range Interpretation Comments Amylase Lvl (test code = Amylase Lvl) 4 - [facility] StationLogrixoYEKFWKVFTF7791-88-86 09:07:00 Test Item Value Reference Range Interpretation Comments Thrombin Time (test code = Thrombin 18.0 s 15.0-21.2 Time) [facility] StationOuywiutQGNECTDVVH0493-75-35 09:07:00 Test Item Value Reference Range Interpretation Comments PT (test code = PT) 24.6 s 12.0-14.7 [facility] StationSbekjskFWLOUQGTZP8364-53-90 09:07:00 Test Item Value Reference Range Interpretation Comments INR (test code = INR) 2.31 1 0.85-1.17 [facility] StationSsonfzdLNHLOGNABC9539-27-11 09:07:00 Test Item Value Reference Range Interpretation Comments PTT (test code = PTT) 57.5 s 22.9-35.8 [facility] StationZymlerbBMODDXOSTJ4316-39-67 09:07:00 Test Item Value Reference Range Interpretation Comments Fibrinogen Lvl (test code = Fibrinogen 125 230-510 Lvl) [facility] StationJzddumnZTZWFIAXHZ0618-12-77 09:07:00 Test Item Value Reference Range Interpretation Comments D-Dimer (test code = D-Dimer) 2.28 [facility]2021-08-04 09:07:00 Test Item Value Reference Range Interpretation Comments Amylase Lvl (test code = Amylase Lvl) 4 25-115 [facility] StationVywohysTNLSFYSRCO4895-11-10 09:07:00 Test Item Value Reference Range Interpretation Comments Thrombin Time (test code = Thrombin 18.0 s 15.0-21.2 Time) [place] 008731-08-04 09:07:00 Test Item Value Reference Range Interpretation Comments PT (test code = PT) 24.6 s 12.0-14.7 [facility] StationNbzzldeMLICWIPNOZ2789-08-32 09:07:00 Test Item Value Reference Range Interpretation Comments INR (test code = INR) 2.31 1 0.85-1.17 [facility] StationBfcwhcnBJNSHCEBSX2990-39-85 09:07:00 Test Item Value Reference Range Interpretation Comments PTT (test code = PTT) 57.5 s 22.9-35.8 [facility] StationZaqjhkhRBNGKVWQHG0798-95-18 09:07:00 Test Item Value Reference Range Interpretation Comments Fibrinogen Lvl (test code = Fibrinogen 125 230-510 Lvl) [facility] StationTongunpXXCFZDOIDL8181-25-17 09:07:00 Test Item Value Reference Range Interpretation Comments D-Dimer (test code = D-Dimer) 2.28 [facility] [id number] 04:52:00 Test Item Value Reference Range Interpretation Comments RBC product (test code Product available = RBC product) (01/21/21 11:52 PM) [facility] WZVGUXV5551-01-41 04:52:00 Test Item Value Reference Range Interpretation Comments RBC product (test code Product available = RBC product) (01/21/21 11:52 PM) [facility] [id number] 04:52:00 Test Item Value Reference Range Interpretation Comments RBC product (test code Product available = RBC product) (01/21/21 11:52 PM) [facility] [id number] 04:52:00 Test Item Value Reference Range Interpretation Comments RBC product (test code Product available = RBC product) (01/21/21 11:52 PM) [facility] [id number] 04:52:00 Test Item Value Reference Range Interpretation Comments RBC product (test code Product available = RBC product) (01/21/21 11:52 PM) [facility] 00:38:00 Test Item Value Reference Range Interpretation Comments Troponin-I (test code no gt See_Comment [Auto mated message] The = Troponin-I) system which g enerated this result transmit rohit reference range : <=0.40. The reference r leo was not used to interpr et this result as reji l/abnormal. [facility] [employer] [id number] 00:38:00 Test Item Value Reference Range Interpretation Comments Troponin-I (test code no gt See_Comment [Auto mated message] The = Troponin-I) system which g enerated this result transmit rohit reference range : <=0.40. The reference r leo was not used to interpr et this result as reji l/abnormal. [facility] [employer]2021-08-04 00:38:00 Test Item Value Reference Range Interpretation Comments Troponin-I (test code no gt See_Comment [Auto mated message] The = Troponin-I) system which g enerated this result transmit rohit reference range : <=0.40. The reference r leo was not used to interpr et this result as reji l/abnormal. [facility] [employer]2021-08-04 00:38:00 Test Item Value Reference Range Interpretation Comments Troponin-I (test code no gt See_Comment [Auto mated message] The = Troponin-I) system which g enerated this result transmit rohit reference range : <=0.40. The reference r leo was not used to interpr et this result as reji l/abnormal. [facility] [employer]2021-08-04 00:38:00 Test Item Value Reference Range Interpretation Comments Troponin-I (test code no gt See_Comment [Auto mated message] The = Troponin-I) system which g enerated this result transmit rohit reference range : <=0.40. The reference r leo was not used to interpr et this result as reji l/abnormal. [facility] [employer]2021-08-03 17:47:00 Test Item Value Reference Range Interpretation Comments BNP (test code = BNP) 2324 [facility] 17:47:00 Test Item Value Reference Range Interpretation Comments Troponin-I (test code 0.02 See_Comment [Auto mated message] The = Troponin-I) system which g enerated this result transmit rohit reference range : <=0.40. The reference r leo was not used to interpr et this result as reji l/abnormal. [facility] [id number] 17:47:00 Test Item Value Reference Range Interpretation Comments Hep Bs Ag (test code Negative *NA*(01/21/21 = Hep Bs Ag) 12:47 PM) [facility] [employer] [id number] 17:47:00 Test Item Value Reference Range Interpretation Comments BNP (test code = BNP) 4 [facility] [id number] 17:47:00 Test Item Value Reference Range Interpretation Comments Troponin-I (test code 0.02 See_Comment [Auto mated message] The = Troponin-I) system which g enerated this result transmit rohit reference range : <=0.40. The reference r leo was not used to interpr et this result as reji l/abnormal. [facility] P[id number] 17:47:00 Test Item Value Reference Range Interpretation Comments Hep Bs Ag (test code Negative *NA*(01/21/21 = Hep Bs Ag) 12:47 PM) [facility]landThe[facility] [id number] 17:47:00 Test Item Value Reference Range Interpretation Comments BNP (test code = BNP) 2323 [facility] PearlandMediBeaconAC [id number] 17:47:00 Test Item Value Reference Range Interpretation Comments Troponin-I (test code 0.02 See_Comment [Auto mated message] The = Troponin-I) system which g enerated this result transmit rohit reference range : <=0.40. The reference r leo was not used to interpr et this result as reji l/abnormal. [facility] PearlandUbuumfxXLTPTHTVLC3588-97-05 17:47:00 Test Item Value Reference Range Interpretation Comments Hep Bs Ag (test code Negative *NA*(01/21/21 = Hep Bs Ag) 12:47 PM) [facility]landMediBeaconAC [id number] 17:47:00 Test Item Value Reference Range Interpretation Comments BNP (test code = BNP) 4 [facility]landannCARGeMeTec MetrologyAC [id number] 17:47:00 Test Item Value Reference Range Interpretation Comments Troponin-I (test code 0.02 See_Comment [Auto mated message] The = Troponin-I) system which g enerated this result transmit rohit reference range : <=0.40. The reference r leo was not used to interpr et this result as reji l/abnormal. [facility] [id number] 17:47:00 Test Item Value Reference Range Interpretation Comments Hep Bs Ag (test code Negative *NA*(01/21/21 = Hep Bs Ag) 12:47 PM) [facility] CareannCARGeMeTec MetrologyAC [id number] 17:47:00 Test Item Value Reference Range Interpretation Comments BNP (test code = BNP) 2324 [facility]landannCARGeMeT[facility] MetrologyAC [id number] 17:47:00 Test Item Value Reference Range Interpretation Comments Troponin-I (test code 0.02 See_Comment [Auto mated message] The = Troponin-I) system which g enerated this result transmit rohit reference range : <=0.40. The reference r leo was not used to interpr et this result as reji l/abnormal. [facility] [id number] 17:47:00 Test Item Value Reference Range Interpretation Comments Hep Bs Ag (test code Negative *NA*(01/21/21 = Hep Bs Ag) 12:47 PM) [facility] [employer] [id number] 17:43:00 Test Item Value Reference Range Interpretation Comments B/C Ratio (test code = B/C Ratio) 5 1 6-25 [facility] [employer] [id number] 17:43:00 Test Item Value Reference Range Interpretation Comments ALT (test code = ALT) 66 See_Comment [Auto mated message] The system which ge nerated this result transmit rohit reference range : <=65. The reference range was not used to interpr et this result as reji l/abnormal. [facility] [employer] [id number] 17:43:00 Test Item Value Reference Range Interpretation Comments Albumin Lvl (test code = Albumin Lvl) 3.0 3.5-5.0 [facility] [employer] [id number] 17:43:00 Test Item Value Reference Range Interpretation Comments Alk Phos (test code = Alk Phos) 40 39-136 [facility] [employer] [id number] 17:43:00 Test Item Value Reference Range Interpretation Comments Bili Total (test code = Bili Total) 0.5 0.2-1.3 [facility] [employer]2021-08-03 17:43:00 Test Item Value Reference Range Interpretation Comments Total Protein (test code = Total 5.7 6.4-8.4 Protein) [facility] [employer]2021-08-03 17:43:00 Test Item Value Reference Range Interpretation Comments AST (test code = AST) 52 See_Comment [Auto mated message] The system which ge nerated this result transmit rohit reference range : <=37. The reference range was not used to interpr et this result as reji l/abnormal. [facility]landF[facility] [id number] 17:43:00 Test Item Value Reference Range Interpretation Comments Globulin (test code = Globulin) 2.7 2.7-4.2 [facility]landF[facility] [id number] 17:43:00 Test Item Value Reference Range Interpretation Comments A/G Ratio (test code = A/G Ratio) 1.1 1 0.7-1.6 [facility]land[facility] [id number] 17:43:00 Test Item Value Reference Range Interpretation Comments Lactic Acid Lvl (test code = Lactic 1.1 0.5-2.2 Acid Lvl) [facility]land[facility] [id number] 17:43:00 Test Item Value Reference Range Interpretation Comments B/C Ratio (test code = B/C Ratio) 5 1 6-25 [facility]landF[facility] [id number] 17:43:00 Test Item Value Reference Range Interpretation Comments ALT (test code = ALT) 66 See_Comment [Auto mated message] The system which ge nerated this result transmit rohit reference range : <=65. The reference range was not used to interpr et this result as reji l/abnormal. [facility] [id number] 17:43:00 Test Item Value Reference Range Interpretation Comments Albumin Lvl (test code = Albumin Lvl) 3.0 3.5-5.0 [facility] [id number] 17:43:00 Test Item Value Reference Range Interpretation Comments Alk Phos (test code = Alk Phos) 40 39-136 [facility] [id number] 17:43:00 Test Item Value Reference Range Interpretation Comments Bili Total (test code = Bili Total) 0.5 0.2-1.3 [facility] [id number] 17:43:00 Test Item Value Reference Range Interpretation Comments Total Protein (test code = Total 5.7 6.4-8.4 Protein) [facility] [id number] 17:43:00 Test Item Value Reference Range Interpretation Comments AST (test code = AST) 52 See_Comment [Auto mated message] The system which ge nerated this result transmit rohit reference range : <=37. The reference range was not used to interpr et this result as reji l/abnormal. [facility] [id number] 17:43:00 Test Item Value Reference Range Interpretation Comments Globulin (test code = Globulin) 2.7 2.7-4.2 [place] [address]-08-03 17:43:00 Test Item Value Reference Range Interpretation Comments A/G Ratio (test code = A/G Ratio) 1.1 1 0.7-1.6 [facility] [id number] 17:43:00 Test Item Value Reference Range Interpretation Comments Lactic Acid Lvl (test code = Lactic 1.1 0.5-2.2 Acid Lvl) [place] [address]-08-03 17:43:00 Test Item Value Reference Range Interpretation Comments B/C Ratio (test code = B/C Ratio) 5 1 6-25 [facility] [id number] 17:43:00 Test Item Value Reference Range Interpretation Comments ALT (test code = ALT) 66 See_Comment [Auto mated message] The system which ge nerated this result transmit rohit reference range : <=65. The reference range was not used to interpr et this result as reji l/abnormal. [facility] [id number] 17:43:00 Test Item Value Reference Range Interpretation Comments Albumin Lvl (test code = Albumin Lvl) 3.0 3.5-5.0 [facility] [id number] 17:43:00 Test Item Value Reference Range Interpretation Comments Alk Phos (test code = Alk Phos) 40 39-136 [facility] [id number] 17:43:00 Test Item Value Reference Range Interpretation Comments Bili Total (test code = Bili Total) 0.5 0.2-1.3 [facility] [id number] 17:43:00 Test Item Value Reference Range Interpretation Comments Total Protein (test code = Total 5.7 6.4-8.4 Protein) [facility] [id number] 17:43:00 Test Item Value Reference Range Interpretation Comments AST (test code = AST) 52 See_Comment [Auto mated message] The system which ge nerated this result transmit rohit reference range : <=37. The reference range was not used to interpr et this result as reji l/abnormal. [facility] [id number] 17:43:00 Test Item Value Reference Range Interpretation Comments Globulin (test code = Globulin) 2.7 2.7-4.2 [place] [address]-08-03 17:43:00 Test Item Value Reference Range Interpretation Comments A/G Ratio (test code = A/G Ratio) 1.1 1 0.7-1.6 [place] [address]-08-03 17:43:00 Test Item Value Reference Range Interpretation Comments Lactic Acid Lvl (test code = Lactic 1.1 0.5-2.2 Acid Lvl) [place] [address]-08-03 17:43:00 Test Item Value Reference Range Interpretation Comments B/C Ratio (test code = B/C Ratio) 5 1 6-[address]08-03 17:43:00 Test Item Value Reference Range Interpretation Comments ALT (test code = ALT) 66 See_Comment [Auto mated message] The system which ge nerated this result transmit rohit reference range : <=65. The reference range was not used to interpr et this result as reji l/abnormal. [facility] [id number] 17:43:00 Test Item Value Reference Range Interpretation Comments Albumin Lvl (test code = Albumin Lvl) 3.0 3.5-5.0 [facility] [id number] 17:43:00 Test Item Value Reference Range Interpretation Comments Alk Phos (test code = Alk Phos) 40 39-136 [facility] [id number] 17:43:00 Test Item Value Reference Range Interpretation Comments Bili Total (test code = Bili Total) 0.5 0.2-1.3 [facility] [id number] 17:43:00 Test Item Value Reference Range Interpretation Comments Total Protein (test code = Total 5.7 6.4-8.4 Protein) [place] [address]-08-03 17:43:00 Test Item Value Reference Range Interpretation Comments AST (test code = AST) 52 See_Comment [Auto mated message] The system which ge nerated this result transmit rohit reference range : <=37. The reference range was not used to interpr et this result as reji l/abnormal. [place] [id number] 17:43:00 Test Item Value Reference Range Interpretation Comments Globulin (test code = Globulin) 2.7 2.7-4.2 [place] [address]-08-03 17:43:00 Test Item Value Reference Range Interpretation Comments A/G Ratio (test code = A/G Ratio) 1.1 1 0.7-1.6 [place] [address]-08-03 17:43:00 Test Item Value Reference Range Interpretation Comments Lactic Acid Lvl (test code = Lactic 1.1 0.5-2.2 Acid Lvl) [address]08-03 17:43:00 Test Item Value Reference Range Interpretation Comments B/C Ratio (test code = B/C Ratio) 5 1 6-[address]08-03 17:43:00 Test Item Value Reference Range Interpretation Comments ALT (test code = ALT) 66 See_Comment [Auto mated message] The system which ge nerated this result transmit rohit reference range : <=65. The reference range was not used to interpr et this result as reji l/abnormal. [place] [address]-08-03 17:43:00 Test Item Value Reference Range Interpretation Comments Albumin Lvl (test code = Albumin Lvl) 3.0 3.5-5.0 [place] [address]-08-03 17:43:00 Test Item Value Reference Range Interpretation Comments Alk Phos (test code = Alk Phos) 40 39-136 [place] [address]-08-03 17:43:00 Test Item Value Reference Range Interpretation Comments Bili Total (test code = Bili Total) 0.5 0.2-1.[address]08-03 17:43:00 Test Item Value Reference Range Interpretation Comments Total Protein (test code = Total 5.7 6.4-8.4 Protein) [place] [address]-08-03 17:43:00 Test Item Value Reference Range Interpretation Comments AST (test code = AST) 52 See_Comment [Auto mated message] The system which ge nerated this result transmit rohit reference range : <=37. The reference range was not used to interpr et this result as reji l/abnormal. [facility] [employer] [id number] 17:43:00 Test Item Value Reference Range Interpretation Comments Globulin (test code = Globulin) 2.7 2.7-4.2 [facility] [employer] [id number] 17:43:00 Test Item Value Reference Range Interpretation Comments A/G Ratio (test code = A/G Ratio) 1.1 1 0.7-1.6 [facility] [employer] [id number] 17:43:00 Test Item Value Reference Range Interpretation Comments Lactic Acid Lvl (test code = Lactic 1.1 0.5-2.2 Acid Lvl) [facility] [employer] [id number] 16:20:00 Test Item Value Reference Range Interpretation Comments ABO/Rh (test code = ABO/Rh) B POS [facility] [employer] [id number] 16:20:00 Test Item Value Reference Range Interpretation Comments Antibody Scrn (test Negative (01/21/21 11:20 code = Antibody Scrn) AM) [id number] 16:20:00 Test Item Value Reference Range Interpretation Comments Anisocyte (test code = 1+ *ABN*(01/21/21 Anisocyte) 11:20 AM) [facility] [employer] [id number] 16:20:00 Test Item Value Reference Range Interpretation Comments ABO/Rh (test code = ABO/Rh) B POS [facility] [employer] [id number] 16:20:00 Test Item Value Reference Range Interpretation Comments Antibody Scrn (test Negative (01/21/21 11:20 code = Antibody Scrn) AM) [facility] P[id number] 16:20:00 Test Item Value Reference Range Interpretation Comments Anisocyte (test code = 1+ *ABN*(01/21/21 Anisocyte) 11:20 AM) [facility] [employer] [id number] 16:20:00 Test Item Value Reference Range Interpretation Comments ABO/Rh (test code = ABO/Rh) B POS [facility] [employer] [id number] 16:20:00 Test Item Value Reference Range Interpretation Comments Antibody Scrn (test Negative (01/21/21 11:20 code = Antibody Scrn) AM) [facility] [id number] 16:20:00 Test Item Value Reference Range Interpretation Comments Anisocyte (test code = 1+ *ABN*(01/21/21 Anisocyte) 11:20 AM) [facility] [id number] 16:20:00 Test Item Value Reference Range Interpretation Comments ABO/Rh (test code = ABO/Rh) B POS [facility] [id number] 16:20:00 Test Item Value Reference Range Interpretation Comments Antibody Scrn (test Negative (01/21/21 11:20 code = Antibody Scrn) AM) [facility] [id number] 16:20:00 Test Item Value Reference Range Interpretation Comments Anisocyte (test code = 1+ *ABN*(01/21/21 Anisocyte) 11:20 AM) [facility] [id number] 16:20:00 Test Item Value Reference Range Interpretation Comments ABO/Rh (test code = ABO/Rh) B POS [facility] [id number] 16:20:00 Test Item Value Reference Range Interpretation Comments Antibody Scrn (test Negative (01/21/21 11:20 code = Antibody Scrn) AM) [facility] [id number] 16:20:00 Test Item Value Reference Range Interpretation Comments Anisocyte (test code = 1+ *ABN*(01/21/21 Anisocyte) 11:20 AM) [facility] [id number] 15:35:00 Test Item Value Reference Range Interpretation Comments Lactase Lvl (test code = Lactase Lvl) 2.0 [facility] [id number] 15:35:00 Test Item Value Reference Range Interpretation Comments Sucrase Lvl (test code = Sucrase Lvl) 38.6 [facility] [id number] 15:35:00 Test Item Value Reference Range Interpretation Comments Maltase Lvl (test code = Maltase Lvl) 177.2 [facility] [id number] 15:35:00 Test Item Value Reference Range Interpretation Comments Palatinase Lvl (test code = Palatinase 13.8 Lvl) [facility] [id number] 15:35:00 Test Item Value Reference Range Interpretation Comments Lactase Lvl (test code = Lactase Lvl) 2.0 [facility] [id number] 15:35:00 Test Item Value Reference Range Interpretation Comments Sucrase Lvl (test code = Sucrase Lvl) 38.6 [facility] [id number] 15:35:00 Test Item Value Reference Range Interpretation Comments Maltase Lvl (test code = Maltase Lvl) 177.2 [facility] [id number] 15:35:00 Test Item Value Reference Range Interpretation Comments Palatinase Lvl (test code = Palatinase 13.8 Lvl) [facility] [id number] 15:35:00 Test Item Value Reference Range Interpretation Comments Lactase Lvl (test code = Lactase Lvl) 2.0 [facility] [id number] 15:35:00 Test Item Value Reference Range Interpretation Comments Sucrase Lvl (test code = Sucrase Lvl) 38.6 [facility] [id number] 15:35:00 Test Item Value Reference Range Interpretation Comments Maltase Lvl (test code = Maltase Lvl) 177.2 [facility] [id number] 15:35:00 Test Item Value Reference Range Interpretation Comments Palatinase Lvl (test code = Palatinase 13.8 Lvl) [facility] [id number] 15:35:00 Test Item Value Reference Range Interpretation Comments Lactase Lvl (test code = Lactase Lvl) 2.0 [facility] [id number] 15:35:00 Test Item Value Reference Range Interpretation Comments Sucrase Lvl (test code = Sucrase Lvl) 38.6 [facility] [id number] 15:35:00 Test Item Value Reference Range Interpretation Comments Maltase Lvl (test code = Maltase Lvl) 177.2 [facility] [id number] 15:35:00 Test Item Value Reference Range Interpretation Comments Palatinase Lvl (test code = Palatinase 13.8 Lvl) [facility] [id number] 15:35:00 Test Item Value Reference Range Interpretation Comments Lactase Lvl (test code = Lactase Lvl) 2.0 [facility] [id number] 15:35:00 Test Item Value Reference Range Interpretation Comments Sucrase Lvl (test code = Sucrase Lvl) 38.6 [facility] [id number] 15:35:00 Test Item Value Reference Range Interpretation Comments Maltase Lvl (test code = Maltase Lvl) 177.2 [facility] [id number] 15:35:00 Test Item Value Reference Range Interpretation Comments Palatinase Lvl (test code = Palatinase 13.8 Lvl) [facility] HospitalZmcgaanAVURDMDUSLOD0716-05-68 13:21:00 Test Item Value Reference Range Interpretation Comments Potassium WB (test code = Potassium WB) 5.1 3.5-5.1 [place] [id number] 13:21:00 Test Item Value Reference Range Interpretation Comments S Preg (test code = S Negative 8*NA*(01/21/21 Preg) 8:21 AM) [facility] HospitalNhwsskfWDYVDXDTTKQH3560-08-08 13:21:00 Test Item Value Reference Range Interpretation Comments Potassium WB (test code = Potassium WB) 5.1 3.5-5.1 [id number] 13:21:00 Test Item Value Reference Range Interpretation Comments S Preg (test code = S Negative 8*NA*(01/21/21 Preg) 8:21 AM) [facility] HospitalZgmbynyDLENJGHLDMKM1116-11-54 13:21:00 Test Item Value Reference Range Interpretation Comments Potassium WB (test code = Potassium WB) 5.1 3.5-5.1 [facility] BudaLiquvvxESKXWAUBSDTLH9292-03-90 13:21:00 Test Item Value Reference Range Interpretation Comments S Preg (test code = S Negative 8*NA*(01/21/21 Preg) 8:21 AM) [facility] Hos[id number] 13:21:00 Test Item Value Reference Range Interpretation Comments Potassium WB (test code = Potassium WB) 5.1 3.5-5.1 [facility]haniQZOKMVWMWJTKI3009-39-89 13:21:00 Test Item Value Reference Range Interpretation Comments S Preg (test code = S Negative 8*NA*(01/21/21 Preg) 8:21 AM) [facility][id number] 13:21:00 Test Item Value Reference Range Interpretation Comments Potassium WB (test code = Potassium WB) 5.1 3.5-5.1 [place] [id number] 13:21:00 Test Item Value Reference Range Interpretation Comments S Preg (test code = S Negative 8*NA*(01/21/21 Preg) 8:21 AM) [facility]CyhvpseHKRLRJSMBR2094-45-69 11:19:00 Test Item Value Reference Range Interpretation Comments Coronavirus (COVID-19) Not Detected (01/21/21 EMANUEL (test code = 6:19 AM) Coronavirus (COVID-19) EMANUEL) [facility] HospitalEodmdtwDIDOHCUNVL5754-52-11 11:19:00 Test Item Value Reference Range Interpretation Comments Coronavirus (COVID-19) Not Detected (01/21/21 EMANUEL (test code = 6:19 AM) Coronavirus (COVID-19) EMANUEL) [facility]burgUpzmanbNCTZOFGRFZ9766-69-23 11:19:00 Test Item Value Reference Range Interpretation Comments Coronavirus (COVID-19) Not Detected (01/21/21 EMANUEL (test code = 6:19 AM) Coronavirus (COVID-19) EMANUEL) [facility] HospitalXvthiwbRDXKMYDGLY1900-00-36 11:19:00 Test Item Value Reference Range Interpretation Comments Coronavirus (COVID-19) Not Detected (01/21/21 EMANUEL (test code = 6:19 AM) Coronavirus (COVID-19) EMANUEL) [facility] EdinburgEbnwtpkXHWTEIYZSI4874-66-75 11:19:00 Test Item Value Reference Range Interpretation Comments Coronavirus (COVID-19) Not Detected (01/21/21 EMANUEL (test code = 6:19 AM) Coronavirus (COVID-19) EMANUEL) [facility] [id number] 16:39:05 Test Item Value Reference Range Interpretation Comments Glucose POC (test 183 mg/dL 70-115 H If you con picking machine operator your code = Glucose POC) patient critically ill, the Merlin-Accu Check Infrom II meter should not be used for Glucose determination. Draw a venous Glucose and send to the main Lab for analysis. Urine [id number] 11:32:13 Test Item Value Reference Range Interpretation [...] Escherichia coli C Urine Added by GL_SJM_UA_CUL_INDPOC [id number] 07:52:10 Test Item Value Reference Range Interpretation Comments Glucose POC (test 160 mg/dL 70-115 H If you con picking machine operator your code = Glucose POC) patient critically ill, the Merlin-Accu Check Infrom II meter should not be used for Glucose determination. Draw a venous Glucose and send to the main Lab for analysis. POC [id number] 19:32:05 Test Item Value Reference Range Interpretation Comments Glucose POC (test 184 mg/dL 70-115 H If you con picking machine operator your code = Glucose POC) patient critically ill, the Merlin-Accu Check Infrom II meter should not be used for Glucose determination. Draw a venous Glucose and send to the main Lab for analysis. POC [id number] 17:16:35 Test Item Value Reference Range Interpretation Comments Glucose POC (test 281 mg/dL 70-115 H Notify RN or MDIf you code = Glucose POC) consider your patient critically ill, the Merlin-Accu Chec k Infrom II meter should not be used for Glucos e determination. Draw a venous Glucose and send to the main Lab for analysis. POC [id number] 12:00:38 Test Item Value Reference Range Interpretation Comments Glucose POC (test 138 mg/dL 70-115 H Notify RN or MDIf you code = Glucose POC) consider your patient critically ill, the Merlin-Accu Chec k Infrom II meter should not be used for Glucos e determination. Draw a venous Glucose and send to the main Lab for analysis. POC [id number] 07:41:32 Test Item Value Reference Range Interpretation Comments Glucose POC (test 206 mg/dL 70-115 H Notify RN or MDIf you code = Glucose POC) consider your patient critically ill, the Merlin-Accu Chec k Infrom II meter should not be used for Glucos e determination. Draw a venous Glucose and send to the main Lab for analysis. Urinalysis [id number] 21:07:21 Test Item Value Reference Range Interpretation Comments UA WBC (test code = UA WBC) TNTC 0-5 A UA RBC (test code = UA RBC) 6-10 0-5 A UA Bacteria (test code = UA Bacteria) Profuse A UA Squam Epithelial (test code = UA 6-10 A Squam Epithelial) Urinalysis with Culture, if [id number] 20:35:14 Test Item Value Reference Range Interpretation [...] Micro Indicated Not Indicated A Ind?) POC [id number] 19:06:34 Test Item Value Reference Range Interpretation Comments Glucose POC (test 207 mg/dL 70-115 H If you con picking machine operator your code = Glucose POC) patient critically ill, the Merlin-Accu Check Infrom II meter should not be used for Glucose determination. Draw a venous Glucose and send to the main Lab for analysis. POC [id number] 17:12:03 Test Item Value Reference Range Interpretation Comments Glucose POC (test 173 mg/dL 70-115 H Notify RN or MDIf you code = Glucose POC) consider your patient critically ill, the Merlin-Accu Chec k Infrom II meter should not be used for Glucos e determination. Draw a venous Glucose and send to the main Lab for analysis. POC [id number] 11:58:01 Test Item Value Reference Range Interpretation Comments Glucose POC (test 289 mg/dL 70-115 H Notify RN or MDIf you code = Glucose POC) consider your patient critically ill, the Merlin-Accu Chec k Infrom II meter should not be used for Glucos e determination. Draw a venous Glucose and send to the main Lab for analysis. POC [id number] 08:19:37 Test Item Value Reference Range Interpretation Comments Glucose POC (test 201 mg/dL 70-115 H Notify RN or MDIf you code = Glucose POC) consider your patient critically ill, the Merlin-Accu Chec k Infrom II meter should not be used for Glucos e determination. Draw a venous Glucose and send to the main Lab for analysis. POC [id number] 20:37:35 Test Item Value Reference Range Interpretation Comments Glucose POC (test 272 mg/dL 70-115 H If you con picking machine operator your code = Glucose POC) patient critically ill, the Merlin-Accu Check Infrom II meter should not be used for Glucose determination. Draw a venous Glucose and send to the main Lab for analysis. POC [id number] 17:23:05 Test Item Value Reference Range Interpretation Comments Glucose POC (test 229 mg/dL 70-115 H If you con picking machine operator your code = Glucose POC) patient critically ill, the Merlin-Accu Check Infrom II meter should not be used for Glucose determination. Draw a venous Glucose and send to the main Lab for analysis. POC [id number] 12:01:01 Test Item Value Reference Range Interpretation Comments Glucose POC (test 155 mg/dL 70-115 H If you con picking machine operator your code = Glucose POC) patient critically ill, the Merlin-Accu Check Infrom II meter should not be used for Glucose determination. Draw a venous Glucose and send to the main Lab for analysis. POC [id number] 08:07:32 Test Item Value Reference Range Interpretation Comments Glucose POC (test 248 mg/dL 70-115 H If you con picking machine operator your code = Glucose POC) patient critically ill, the Merlin-Accu Check Infrom II meter should not be used for Glucose determination. Draw a venous Glucose and send to the main Lab for analysis. IG [id number] 06:50:39 Test Item Value Reference Range Interpretation Comments IG (test code = IG) 0.7 % 0.0-5.0 IG Abs (test code = IG Abs) 0 x10 N Complete Blood Count with Ywfpcydskari7858-10-07 06:50:38 Test Item Value Reference Range Interpretation [...] code = IPF) 0 % N Automated [id number] 06:50:38 Test Item Value Reference Range Interpretation Comments Neutro Auto (test code = Neutro 50.3 % 36.0-70.0 Auto) Lymph Auto (test code = Lymph Auto) 38.6 % 12.0-44.0 Fallon Auto (test code = Fallon Auto) 7.3 % 0.0-11.0 Eos, Auto (test code = Eos, Auto) 2.4 % 0.0-7.0 Basophil Auto (test code = Basophil 0.7 % 0.0-2.0 Auto) Neutro Absolute (test code = Neutro 3.0 x10 1.6-7.4 Absolute) Lymph Absolute (test code = Lymph 2.28 x10 .50-4.60 Absolute) Fallon Absolute (test code = Fallon .43 x10 .00-1.20 Absolute) Eos Absolute (test code = Eos 0.14 x10 0.00-0.74 Absolute) Baso Absolute (test code = Baso 0.04 x10 0.00-0.21 Absolute) Basic Metabolic [id number] 05:38:20 Test Item Value Reference Range Interpretation [...] = Lipemia) 0 mg/dL 8-11 Basic Metabolic [id number] 05:38:20 Test Item Value Reference Range Interpretation [...] = 0 mg/dL 8-11 Lipemia) Basic Metabolic [id number] 05:38:20 Test Item Value Reference Range Interpretation [...] code = 0 mg/dL 8-11 Lipemia) POC [id number] 20:28:33 Test Item Value Reference Range Interpretation Comments Glucose POC (test 169 mg/dL 70-115 H If you con picking machine operator your code = Glucose POC) patient critically ill, the Merlin-Accu Check Infrom II meter should not be used for Glucose determination. Draw a venous Glucose and send to the main Lab for analysis. POC [id number] 16:39:30 Test Item Value Reference Range Interpretation Comments Glucose POC (test 103 mg/dL 70-115 If you con picking machine operator your code = Glucose POC) patient critically ill, the Merlin-Accu Check Infrom II meter should not be used for Glucose determination. Draw a venous Glucose and send to the main Lab for analysis. RPR [id number] 12:08:56 Test Item Value Reference Range Interpretation Comments RPR Qual (test code = RPR Qual) Non-Reactive Non-Reactive Reactive Control (test code = Reactive Reactive Control) Weak Reactive Control (test Weak Reactive code = Weak Reactive Control) Non-Reactive Control (test code Non-Reactive = Non-Reactive Control) Lot # (test code = Lot #) [id number] N Expiration Dt (test code = 03-20-2021 N Expiration Dt) POC [id number] 11:52:31 Test Item Value Reference Range Interpretation Comments Glucose POC (test 250 mg/dL 70-115 H If you con picking machine operator your code = Glucose POC) patient critically ill, the Merlin-Accu Check Infrom II meter should not be used for Glucose determination. Draw a venous Glucose and send to the main Lab for analysis. POC [id number] 07:55:29 Test Item Value Reference Range Interpretation Comments Glucose POC (test 205 mg/dL 70-115 H If you con picking machine operator your code = Glucose POC) patient critically ill, the Merlin-Accu Check Infrom II meter should not be used for Glucose determination. Draw a venous Glucose and send to the main Lab for analysis. Lipid [id number] 05:46:04 Test Item Value Reference Range Interpretation [...] LDL/HDL Ratio=L DL Calc/HDL Chol Thyroid Stimulating [id number] 05:46:04 Test Item Value Reference Range Interpretation Comments TSH (test code = TSH) 3.274 mcIU/mL 0.550-4.780 Hemoglobin [id number] 05:41:08 Test Item Value Reference Range Interpretation Comments Hemoglobin A1c (test code 7.6 % 4.0-5.8 H Di abetic >=6.5 = Hemoglobin A1c) %Prediabet es 5.7-6.4 %Normal <5.7 % Hepatitis B Surface [id number] 21:19:36 Test Item Value Reference Range Interpretation Comments Hep Bs Ag (test code = Hep Bs Non-Reactive Non-Reactive Ag) Novel Coronavirus SARS-CoV-2, [id number] 11:16:16 Test Item Value Reference Range Interpretation [...] Emergency Use Authorization." Novel Coronavirus (COVID-19), EMANUEL [id number] 11:11:24TNPTest not sent and performed at [facility].Rapid was perfomed in Microbiology.Wrong covid test was ord ered.Urine DOA [id number] 00:17:49 Test Item Value Reference Range Interpretation [...] Propoxyphene Confirmation wi thin 7 days. Alcohol [id number] 00:17:29 Test Item Value Reference Range Interpretation Comments Ethanol Level 9.0 mg/dL N The pharmacolo gical (test code = response to blo od alcohol Ethanol Level) levels may va ry from individual to i ndividual. The fatal omkar ntration has been report ed to be >400 mg/dl. Comprehensive Metabolic [id number] 00:17:28 Test Item Value Reference Range Interpretation [...] = Lipemia) 0 g/dL 1-2 Comprehensive Metabolic [id number] 00:17:28 Test Item Value Reference Range Interpretation [...] = 0 g/dL 1-2 Lipemia) Comprehensive Metabolic [id number] 00:17:28 Test Item Value Reference Range Interpretation [...] ag e have not been validated by [facility] MDRD study and should be [...] ag e have not been validated by [facility] MDRD study and should be [...] g/dL 1-2 Lipemia) Complete Blood Count with Ccdluigowcnv6962-09-00 23:26:28 Test Item Value Reference Range Interpretation [...] code = IPF) 0 % N Automated [id number] 23:26:28 Test Item Value Reference Range Interpretation Comments Neutro Auto (test code = Neutro 67.1 % 36.0-70.0 Auto) Lymph Auto (test code = Lymph Auto) 23.3 % 12.0-44.0 Fallon Auto (test code = Fallon Auto) 5.8 % 0.0-11.0 Eos, Auto (test code = Eos, Auto) 2.3 % 0.0-7.0 Basophil Auto (test code = Basophil 0.8 % 0.0-2.0 Auto) Neutro Absolute (test code = Neutro 6.0 x10 1.6-7.4 Absolute) Lymph Absolute (test code = Lymph 2.10 x10 .50-4.60 Absolute) Fallon Absolute (test code = Fallon .52 x10 .00-1.20 Absolute) Eos Absolute (test code = Eos 0.21 x10 0.00-0.74 Absolute) Baso Absolute (test code = Baso 0.07 x10 0.00-0.21 Absolute) IG [id number] 23:26:28 Test Item Value Reference Range Interpretation Comments IG (test code = IG) 0.7 % 0.0-5.0 IG Abs (test code = IG Abs) 0 x10 N HERPES VIRUS ANTIBODY, [id number] 21:46:00 Test Item Value Reference Range Interpretation Comments HERPES VIRUS IGM (AKER) Negative SE E ATTACHMENT (test code = 1808) BLOOD [id number] 06:00:00 Test Item Value Reference Range Interpretation Comments CULTURE (BEAKER) (test No growth in 5 days code = 1095) BLOOD [id number] 06:00:00 Test Item Value Reference Range Interpretation Comments CULTURE (BEAKER) (test No growth in 5 days code = 1095) POCT-GLUCOSE [id number] 12:11:00 Test Item Value Reference Range Interpretation Comments POC-GLUCOSE METER 154 mg/dL 70-110 H TESTED AT [place] [address] ([facility]) (test code = [facility] 1538) [address] POCT-GLUCOSE [id number] 07:53:00 Test Item Value Reference Range Interpretation Comments POC-GLUCOSE METER 87 mg/dL 70-110 TESTED AT [place] [address] ([facility]) (test code = [facility] [address] 1538) POCT-GLUCOSE [id number] 06:49:00 Test Item Value Reference Range Interpretation Comments POC-GLUCOSE METER 79 mg/dL 70-110 TESTED AT [place] [address] ([facility]) (test code = [facility] [address] 1538) COMPREHENSIVE METABOLIC [id number] 06:15:00 Test Item Value Reference Range Interpretation [...] S NOT APPLICABLE FOR DIALYSIS PATIEN TS. [id number] 06:11:00 Test Item Value Reference Range Interpretation Comments MAGNESIUM (BEAKER) (test code = 2.1 mg/dL 1.6-2.6 627) HEPATIC FUNCTION [id number] 06:11:00 Test Item Value Reference Range Interpretation Comments TOTAL PROTEIN (BEAKER) (test code = 5.1 gm/dL 6.0-8.3 L 770) ALBUMIN (BEAKER) (test code = 1145) 2.2 g/dL 3.5-5.0 L BILIRUBIN TOTAL (BEAKER) (test code 1.1 mg/dL 0.2-1.2 = 377) BILIRUBIN DIRECT (BEAKER) (test 0.7 mg/dL 0.1-0.5 H code = 706) ALKALINE PHOSPHATASE (BEAKER) (test 78 U/L 40-150 code = 346) AST (SGOT) ([facility]) (test code = 256 U/L 5-34 H 353) ALT (SGPT) ([facility]) (test code = 513 U/L 6-55 H 347) [id number] 05:30:00 Test Item Value Reference Range Interpretation Comments FIBRINOGEN LEVEL ([facility]) (test 368 mg/dl 225-434 code = 658) [id number] 05:30:00 Test Item Value Reference Range Interpretation Comments PARTIAL THROMBOPLASTIN TIME 42.2 seconds 22.5-36.0 H ([facility]) (test code = 760) PROTHROMBIN [id number] 05:29:00 Test Item Value Reference Range Interpretation Comments PROTIME ([facility]) (test code = 14.8 seconds 11.7-14.7 H 759) INR ([facility]) (test code = 370) 1.2 <=5.9 RECOMMENDED COUMADIN/WARFARIN INR THERAPY RANGESSTANDARD DOSE: 2.0 - 3.0 Includes: PROPHYLAXIS for venous thrombosis, systemic embolization; TREATMENT for venous thrombosis and/or pulmonary embolus.HIGH RISK: Target INR is 2.5-3.5 for patients with mechanical heart valves.POCT-GLUCOSE [id number] 21:09:00 Test Item Value Reference Range Interpretation Comments POC-GLUCOSE METER 178 mg/dL 70-110 H TESTED AT [place] [address] ([facility]) (test code = [place] [facility] 1538) [address] POCT-GLUCOSE [id number] 17:18:00 Test Item Value Reference Range Interpretation Comments POC-GLUCOSE METER 178 mg/dL 70-110 H TESTED AT [place] [address] ([facility]) (test code = [facility] 1538) [address] POCT-GLUCOSE [id number] 13:48:00 Test Item Value Reference Range Interpretation Comments POC-GLUCOSE METER 150 mg/dL 70-110 H TESTED AT [place] [address] ([facility]) (test code = [facility] 1538) [address] FACTOR 5 ACTIVITY (BLEEDING RISK)2017-01-06 10:04:00 Test Item Value Reference Range Interpretation Comments FACTOR V ACTIVITY ([facility]) (test code 90.0 % 60.0-150.0 = 665) Effective 10/24/2013: Reference Range Change-Adult onlyNew: 60.0-150.0 Previous: 50.0-150.0CYTOMEGALOVIRUS ANTIBODY, [id number] 09:42:00 Test Item Value Reference Range Interpretation Comments CYTOMEGALOVIRUS IGM ANTIBODY Negative (BEAKER) (test code = 816) HERPES VIRUS ANTIBODY, [id number] 08:59:00 Test Item Value Reference Range Interpretation Comments 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) (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 G 1807) CYTOMEGALOVIRUS ANTIBODY, [id number] 08:59:00 Test Item Value Reference Range Interpretation Comments CYTOMEGALOVIRUS IGG ANTIBODY Positive (AKER) (test code = 790) EBV-VCA ANTIBODY, [id number] 08:59:00 Test Item Value Reference Range Interpretation Comments JASE-WALL VCA IGG (BEAKER) (test Positive code = 983) EBV-VCA ANTIBODY, [id number] 08:59:00 Test Item Value Reference Range Interpretation Comments JASE-WALL VCA IGM (BEAKER) (test Negative code = 984) POCT-GLUCOSE [id number] 07:59:00 Test Item Value Reference Range Interpretation Comments POC-GLUCOSE METER 81 mg/dL 70-110 TESTED AT [facility] 6720 ([facility]) (test code = [place] [address] 1538) COMPREHENSIVE METABOLIC [id number] 06:23:00 Test Item Value Reference Range Interpretation [...] S NOT APPLICABLE FOR DIALYSIS PATIEN TS. [id number] 06:17:00 Test Item Value Reference Range Interpretation Comments MAGNESIUM (BEAKER) (test code = 1.8 mg/dL 1.6-2.6 627) HEPATIC FUNCTION [id number] 06:17:00 Test Item Value Reference Range Interpretation [...] code = 779 U/L 6-55 H 347) [id number] 06:00:00 Test Item Value Reference Range Interpretation Comments FIBRINOGEN LEVEL (BEAKER) (test 390 mg/dl 225-434 code = 658) [id number] 06:00:00 Test Item Value Reference Range Interpretation Comments PARTIAL THROMBOPLASTIN TIME 40.2 seconds 22.5-36.0 H ([facility]) (test code = 760) PROTHROMBIN [id number] 05:59:00 Test Item Value Reference Range Interpretation Comments PROTIME ([facility]) (test code = 14.6 seconds 11.7-14.7 759) INR ([facility]) (test code = 370) 1.2 <=5.9 RECOMMENDED COUMADIN/WARFARIN INR THERAPY RANGESSTANDARD DOSE: 2.0 - 3.0 Includes: PROPHYLAXIS for venous thrombosis, systemic embolization; TREATMENT for venous thrombosis and/or pulmonary embolus.HIGH RISK: Target INR is 2.5-3.5 for patients with mechanical heart valves.POCT-GLUCOSE [id number] 21:46:00 Test Item Value Reference Range Interpretation Comments POC-GLUCOSE METER 153 mg/dL 70-110 H TESTED AT [place] [address] ([facility]) (test code = [facility] 1538) [address] POCT-GLUCOSE [id number] 18:47:00 Test Item Value Reference Range Interpretation Comments POC-GLUCOSE METER 181 mg/dL 70-110 H TESTED AT [place] [address] ([facility]) (test code = [facility] 1538) [address] POCT-GLUCOSE [id number] 12:40:00 Test Item Value Reference Range Interpretation Comments POC-GLUCOSE METER 178 mg/dL 70-110 H TESTED AT [place] [address] ([facility]) (test code = [facility] 1538) [address] POCT-GLUCOSE [id number] 07:51:00 Test Item Value Reference Range Interpretation Comments POC-GLUCOSE METER 166 mg/dL 70-110 H TESTED AT [place] [address] ([facility]) (test code = [facility] 1538) [address] COMPREHENSIVE METABOLIC [id number] 03:26:00 Test Item Value Reference Range Interpretation Comments TOTAL PROTEIN 5.2 gm/dL 6.0-8.3 L ([facility]) (test code = 770) ALBUMIN ([facility]) 2.3 g/dL 3.5-5.0 L (test code = 1145) ALKALINE PHOSPHATASE 72 U/L 40-150 ([facility]) (test code = 346) BILIRUBIN TOTAL 2.0 mg/dL 0.2-1.2 H ([facility]) (test code = 377) SODIUM [...] S NOT APPLICABLE FOR DIALYSIS PATIEN TS. [id number] 03:22:00 Test Item Value Reference Range Interpretation Comments MAGNESIUM (BEAKER) (test code = 1.4 mg/dL 1.6-2.6 L 627) HEPATIC FUNCTION [id number] 03:22:00 Test Item Value Reference Range Interpretation [...] code = 1009 U/L 6-55 H 347) [id number] 03:12:00 Test Item Value Reference Range Interpretation Comments AMMONIA (BEAKER) (test code = 348) 29 mol/L 18-72 [id number] 03:10:00 Test Item Value Reference Range Interpretation Comments PARTIAL THROMBOPLASTIN TIME 42.3 seconds 22.5-36.0 H (BEAKER) (test code = 760) PROTHROMBIN [id number] 03:09:00 Test Item Value Reference Range Interpretation Comments PROTIME (BEAKER) (test code = 16.4 seconds 11.7-14.7 H 759) INR (BEAKER) (test code = 370) 1.3 <=5.9 RECOMMENDED COUMADIN/WARFARIN INR THERAPY RANGESSTANDARD DOSE: 2.0 - 3.0 Includes: PROPHYLAXIS for venous thrombosis, systemic embolization; TREATMENT for venous thrombosis and/or pulmonary embolus.HIGH RISK: Target INR is 2.5-3.5 for patients with mechanical heart valves.[id number] 03:09:00 Test Item Value Reference Range Interpretation Comments FIBRINOGEN LEVEL (BEAKER) (test 413 mg/dl 225-434 code = 658) CBC W/PLT COUNT & AUTO [id number] 03:09:00 Test Item Value Reference Range Interpretation [...] L 0.00-0.20 (test code = 417) 0.00POCT-GLUCOSE [id number] 22:33:00 Test Item Value Reference Range Interpretation Comments POC-GLUCOSE METER 230 mg/dL 70-110 H TESTED AT [place] [address] ([facility]) (test code = [facility] 1538) [address] POCT-GLUCOSE [id number] 18:17:00 Test Item Value Reference Range Interpretation Comments POC-GLUCOSE METER 222 mg/dL 70-110 H TESTED AT [place] [address] ([facility]) (test code = [facility] 1538) [address] COMPREHENSIVE METABOLIC [id number] 16:59:00 Test Item Value Reference Range Interpretation [...] PATIEN TS. PERIPHERAL BLOOD SMEAR - PATHOLOGIST [id number] 15:30:00 Test Item Value Reference Range Interpretation Comments RBC MORPHOLOGY Polychromasia (BEAKER) (test code = 2846) RBC MORPHOLOGY Anisocytosis (BEAKER) (test code = 32761) PERIPHERAL SMR REVIEW Cell counts confirmed (BEAKER) (test code = 2640) [id number] Josefina Lara M.D. (BEAKER) (test code = (electronic signature) 7194) PROTHROMBIN [id number] 15:12:00 Test Item Value Reference Range Interpretation [...] Negative Negative (test code = 418) POCT-GLUCOSE [id number] 12:47:00 Test Item Value Reference Range Interpretation Comments POC-GLUCOSE METER 212 mg/dL 70-110 H TESTED AT [facility] 6720 ([employer]) (test code = [place] 1538) [address] [id number] 12:34:00 Test Item Value Reference Range Interpretation Comments RPR SCREEN ([employer]) (test code = Nonreactive Nonreactive 420) CLOSTRIDIUM DIFFICILE TOXIN [id number] 10:12:00 Test Item Value Reference Range Interpretation [...] Reference Range Interpretation Comments FACTOR V ACTIVITY ([facility] [employer] [facility]) (test code 86.0 % 60.0-150.0 = 665) Effective 10/24/2013: Reference Range Change-Adult onlyNew: 60.0-150.0 Previous: 50.0-150.0FACTOR 5 ACTIVITY (BLEEDING RISK)2017-01-04 09:13:00 Test Item Value Reference Range Interpretation Comments FACTOR V ACTIVITY ([employer] [facility]) (test code 56.0 % 60.0-150.0 L = 665) Effective 10/24/2013: Reference Range Change-Adult onlyNew: 60.0-150.0 Previous: 50.0-150.0POCT-GLUCOSE [id number] 06:40:00 Test Item Value Reference Range Interpretation Comments POC-GLUCOSE METER 167 mg/dL 70-110 H TESTED AT [facility] 6720 (BEAKER) (test code = [place] 1538) [address] COMPREHENSIVE METABOLIC [id number] 04:08:00 Test Item Value Reference Range Interpretation [...] ESTIM ATED GFR. Specimen slightly ictericHEPATIC FUNCTION [id number] 04:06:00 Test Item Value Reference Range Interpretation [...] 1091 U/L 6-55 H 347) Specimen slightly [id number] 04:01:00 Test Item Value Reference Range Interpretation Comments FIBRINOGEN LEVEL (BEAKER) (test 379 mg/dl 225-434 code = 658) [id number] 04:01:00 Test Item Value Reference Range Interpretation Comments PARTIAL THROMBOPLASTIN TIME 40.7 seconds 22.5-36.0 H (BEAKER) (test code = 760) PROTHROMBIN [id number] 04:00:00 Test Item Value Reference Range Interpretation [...] mechanical heart valves.CBC W/PLT COUNT & AUTO [id number] 03:56:00 Test Item Value Reference Range Interpretation [...] L 0.00-0.20 (test code = 417) 0.00POCT-GLUCOSE [id number] 00:19:00 Test Item Value Reference Range Interpretation Comments POC-GLUCOSE METER 159 mg/dL 70-110 H TESTED AT [facility] 6720 (BEAKER) (test code = [place] 1538) [address] POCT-GLUCOSE [id number] 18:56:00 Test Item Value Reference Range Interpretation Comments POC-GLUCOSE METER 192 mg/dL 70-110 H TESTED AT [facility] 6720 (BEAKER) (test code = [place] 1535) [address] COMPREHENSIVE METABOLIC [id number] 16:55:00 Test Item Value Reference Range Interpretation [...] CALCULATE ESTIM ATED GFR. Specimen slightly ictericPROTHROMBIN [id number] 16:37:00 Test Item Value Reference Range Interpretation Comments PROTIME (BEAKER) (test code = 20.9 seconds 11.7-14.7 H 759) INR (BEAKER) (test code = 370) 1.8 <=5.9 RECOMMENDED COUMADIN/WARFARIN INR THERAPY RANGESSTANDARD DOSE: 2.0 - 3.0 Includes: PROPHYLAXIS for venous thrombosis, systemic embolization; TREATMENT for venous thrombosis and/or pulmonary embolus.HIGH RISK: Target INR is 2.5-3.5 for patients with mechanical heart valves.HEPATITIS B SURFACE [id number] 14:05:00 Test Item Value Reference Range Interpretation Comments HEPATITIS B SURFACE ANTIBODY < mIU/mL <8.0 (BEAKER) (test code = 647) HEPATITIS B CORE ANTIBODY, [id number] 13:43:00 Test Item Value Reference Range Interpretation Comments HEPATITIS B CORE TOTAL ANTIBODY Nonreactive Nonreactive (BEAKER) (test code = 497) BLOOD GAS, [id number] 13:35:00 Test Item Value Reference Range Interpretation [...] code = 1819) 28.0 % URINALYSIS W/ [id number] 13:16:00 Test Item Value Reference Range Interpretation [...] 1584) SOURCE(BEAKER) (test code = Urine, [place] 9795) VITAMIN D, 05-[id number] 13:14:00 Test Item Value Reference Range Interpretation Comments VITAMIN D 25-OH (BEAKER) (test code = < ng/mL 13.0-47.8 L 2764) ALPHA FETOPROTEIN (AFP), TUMOR [id number] 13:06:00 Test Item Value Reference Range Interpretation Comments ALPHA-FETOPROTEIN (BEAKER) (test code < ng/mL <10.0 = 1094) Effective 05/08/2014: Reference Range ChangeNew: <10.0 Previous: 0.0-8.0 HEMOGLOBIN [id number] 13:05:00 Test Item Value Reference Range Interpretation Comments HEMOGLOBIN A1C (BEAKER) (test code = 7.6 % 4.3-6.1 H 368) CARCINOEMBRYONIC ANTIGEN (CEA)2017-01-03 12:59:00 Test Item Value Reference Range Interpretation Comments CARCINOEMBRYONIC ANTIGEN (BEAKER) 2.0 ng/mL 0.0-5.0 (test code = 685) [id number] 12:59:00 Test Item Value Reference Range Interpretation Comments FERRITIN (BEAKER) (test code = 1841 ng/mL 5-275 H 361) Effective 05/08/2014: Reference Range ChangeNew: Male 5-275 Previous: Male 22- 322 Female 5-275 Female [id number] 12:58:00 Test Item Value Reference Range Interpretation Comments T4 TOTAL (BEAKER) (test code = 895) 4.5 ug/dL 4.9-11.7 L [id number] 12:58:00 Test Item Value Reference Range Interpretation Comments THYROID STIMULATING HORMONE 1.79 uIU/mL 0.35-4.94 (BEAKER) (test code = 772) [id number] 12:58:00 Test Item Value Reference Range Interpretation Comments T3 TOTAL (BEAKER) (test code = 656) 34 ng/dL 48-159 L Effective 05/08/2014: Reference Range ChangeNew: 48-159 Previous: 60-181CALCIUM, [id number] 12:47:00 Test Item Value Reference Range Interpretation Comments CALCIUM IONIZED (BEAKER) (test 1.05 mmol/L 1.12-1.27 L code = 698) PH, BLOOD (BEAKER) (test code = 7.43 1810) [id number] 12:42:00 Test Item Value Reference Range Interpretation [...] % 20-55 (test code = 2590) URIC [id number] 12:40:00 Test Item Value Reference Range Interpretation Comments URIC ACID (BEAKER) (test code = 16.0 mg/dL 2.6-7.2 H 773) Specimen slightly ictericLIPID [id number] 12:40:00 Test Item Value Reference Range Interpretation [...] 160-189 Very High >=190 Specimen slightly ictericBILIRUBIN, [id number] 12:40:00 Test Item Value Reference Range Interpretation Comments BILIRUBIN DIRECT (MADIE) (test 2.4 mg/dL 0.1-0.5 H code = 706) GAMMA GLUTAMYL TRANSFERASE (GGT)2017-01-03 12:40:00 Test Item Value Reference Range Interpretation Comments GAMMA GLUTAMYL TRANSFERASE (MADIE) 53 U/L 9-64 (test code = 364) Specimen slightly [id number] 12:39:00 Test Item Value Reference Range Interpretation Comments ETHANOL (MADIE) (test code = 400) < mg/dL <=10 SCREEN, [id number] 12:36:00 Test Item Value Reference Range Interpretation Comments TEST URINE (MADIE) (test Negative code = 583) POCT-GLUCOSE [id number] 12:34:00 Test Item Value Reference Range Interpretation Comments POC-GLUCOSE METER 189 mg/dL 70-110 H TESTED AT [facility] 6720 (MDAIE) (test code = [place] 1538) [address] HIV-1 ANTIGEN WITH HIV-1/2 [id number] 11:58:00 Test Item Value Reference Range Interpretation Comments HIV-1 ANTIGEN WITH HIV 1\\T\\2 Nonreactive Nonreactive ANTIBODY (2) (MADIE) (test code = 2586) TROPONIN [id number] 09:44:00 Test Item Value Reference Range Interpretation [...] 0.0-4.9CK-MB Reference Range:<6.7 Normal6.7-10.0 Borderline>10.0 Abnormal ACETAMINOPHEN [id number] 08:31:00 Test Item Value Reference Range Interpretation Comments ACETAMINOPHEN LEVEL (BEAKER) (test < ug/mL 10.0-30.0 L code = 344) TROPONIN [id number] 05:53:00 Test Item Value Reference Range Interpretation [...] acute neurological disease, and persistent tachyarrhythmia.BASIC METABOLIC [id number] 05:53:00 Test Item Value Reference Range Interpretation [...] TO CALCULA TE ESTIMATED GFR. Specimen slightly dviucqlQAWRWZWKDG4708-31-55 05:52:00 Test Item Value Reference Range Interpretation Comments PHOSPHORUS (BEAKER) (test code = 5.7 mg/dL 2.3-4.7 H 604) HEPATIC FUNCTION [id number] 05:52:00 Test Item Value Reference Range Interpretation [...] Specimen slightly ictericCREATINE KINASE (CK), TOTAL AND [id number] 05:52:00 Test Item Value Reference Range Interpretation Comments CREATINE KINASE TOTAL (BEAKER) 341 U/L 29-200 H (test code = 380) CREATINE KINASE-MB (BEAKER) (test 5.4 ng/mL 0.0-6.6 code = 750) CREATINE KINASE-MB INDEX (BEAKER) 1.6 % (test code = 395) Effective 05/08/2014: CK-MB Reference Range ChangeNew: 0.0-6.6 Previous: 0.0-4.9CK-MB Reference Range:<6.7 Normal6.7-10.0 Borderline>10.0 Abnormal CBC W/PLT COUNT & AUTO [id number] 05:48:00 Test Item Value Reference Range Interpretation [...] K/ L 0.00-0.20 (test code = 417) 0.28CORCZZYCDH4195-98-24 05:09:00 Test Item Value Reference Range Interpretation Comments FIBRINOGEN LEVEL (BEAKER) (test 427 mg/dl 225-434 code = 658) [id number] 05:09:00 Test Item Value Reference Range Interpretation Comments PARTIAL THROMBOPLASTIN TIME 36.2 seconds 22.5-36.0 H (BEAKER) (test code = 760) PROTHROMBIN TIME/[id number] 05:08:00 Test Item Value Reference Range Interpretation Comments PROTIME (BEAKER) (test code = 22.8 seconds 11.7-14.7 H 759) INR (BEAKER) (test code = 370) 2.0 <=5.9 RECOMMENDED COUMADIN/WARFARIN INR THERAPY RANGESSTANDARD DOSE: 2.0 - 3.0 Includes: PROPHYLAXIS for venous thrombosis, systemic embolization; TREATMENT for venous thrombosis and/or pulmonary embolus.HIGH RISK: Target INR is 2.5-3.5 for patients with mechanical heart valves.HEPATITIS PANEL, [id number] 03:40:00 Test Item Value Reference Range Interpretation Comments HEPATITIS A IGM ANTIBODY (BEAKER) Nonreactive Nonreactive (test code = 498) HEPATITIS B CORE IGM ANTIBODY Nonreactive Nonreactive (BEAKER) (test code = 645) HEPATITIS C ANTIBODY (BEAKER) Nonreactive Nonreactive (test code = 367) HEPATITIS B SURFACE ANTIGEN (2) Nonreactive Nonreactive (BEAKER) (test code = 2585) CREATININE, RANDOM [id number] 03:18:00 Test Item Value Reference Range Interpretation Comments CREATININE URINE (BEAKER) (test 118.7 mg/dL code = 375) Reference Range: No NormalsSODIUM, RANDOM [id number] 03:18:00 Test Item Value Reference Range Interpretation Comments SODIUM URINE (BEAKER) (test code = 60 meq/L 243) Reference Range: No NormalsUREA NITROGEN, RANDOM [id number] 03:18:00 Test Item Value Reference Range Interpretation Comments UREA NITROGEN URINE (BEAKER) (test 303 mg/dL code = 538) Reference Range: No [id number] 03:07:00 Test Item Value Reference Range Interpretation Comments AMMONIA (BEAKER) (test code = 348) 48 mol/L 18-72 E-[id number] 02:57:00 Test Item Value Reference Range Interpretation [...] within 95-100% range. URINALYSIS W/ REFLEX URINE [id number] 02:53:00 Test Item Value Reference Range Interpretation [...] /LPF = 514) SOURCE(BEAKER) (test code = 2855) [id number] 02:49:00 Test Item Value Reference Range Interpretation Comments PARTIAL THROMBOPLASTIN TIME 39.4 seconds 22.5-36.0 H (BEAKER) (test code = 760) PROTHROMBIN TIME/[id number] 02:48:00 Test Item Value Reference Range Interpretation Comments PROTIME (BEAKER) (test code = 22.0 seconds 11.7-14.7 H 759) INR (BEAKER) (test code = 370) 1.9 <=5.9 RECOMMENDED COUMADIN/WARFARIN INR THERAPY RANGESSTANDARD DOSE: 2.0 - 3.0 Includes: PROPHYLAXIS for venous thrombosis, systemic embolization; TREATMENT for venous thrombosis and/or pulmonary embolus.HIGH RISK: Target INR is 2.5-3.5 for patients with mechanical heart valves.[id number] 02:48:00 Test Item Value Reference Range Interpretation Comments FIBRINOGEN LEVEL (BEAKER) (test 421 mg/dl 225-434 code = 658) BLOOD GAS, [id number] 02:43:00 Test Item Value Reference Range Interpretation [...] 21.0 % CBC W/PLT COUNT & AUTO [id number] 02:43:00 Test Item Value Reference Range Interpretation [...] code = 417) 0.00LACTIC ACID, VENOUS, WHOLE [id number] 02:35:00 Test Item Value Reference Range Interpretation Comments LACTATE BLOOD VENOUS (2) (BEAKER) 0.8 mmol/L 0.5-2.2 (test code = 2872) Effective 10/23/2015: Units/Reference Range ChangeNew: 0.5-2.2 mmol/L Previous: 5- 20 mg/dLSpecimen slightly tlnbanuFCBMTNJJBVQV2059-76-25 11:32:00 Test Item Value Reference Range Interpretation Comments AGAP (test code = AGAP) 14.6 10.0-20.0 [facility] HospitalQtgiuddTDPGKSOGTRLX1460-37-05 11:32:00 Test Item Value Reference Range Interpretation Comments eGFR (test code = eGFR) 33 [facility] HospitalMuxuesyCKEFJXOWGFMU3036-46-44 11:32:00 Test Item Value Reference Range Interpretation Comments Calcium Lvl (test code = Calcium Lvl) 8.3 8.5-10.5 [facility] HospitalNhuxdpsAFUZKKFHXNLP1651-44-63 11:32:00 Test Item Value Reference Range Interpretation Comments Glucose Lvl (test code = Glucose Lvl) 81 70-99 [facility] HospitalKplcexcPXXYIOJRHRXM0141-03-22 11:32:00 Test Item Value Reference Range Interpretation Comments Creatinine Lvl (test code = Creatinine 1.95 0.50-1.40 Lvl) [facility] HospitalVtzwkuaYMYXPIEEDFLN9684-28-63 11:32:00 Test Item Value Reference Range Interpretation Comments BUN (test code = BUN) 55 7-22 [facility] HospitalUsucjurUWIPIXPWELUW0190-47-90 11:32:00 Test Item Value Reference Range Interpretation Comments CO2 (test code = CO2) 19 24-32 [facility] HospitalLeucbzlPZMXTCOAZKFU2734-16-04 11:32:00 Test Item Value Reference Range Interpretation Comments Chloride Lvl (test code = Chloride Lvl) 110 95-109 [facility] HospitalXxyvclsZRSCRGSJUGXE8064-34-70 11:32:00 Test Item Value Reference Range Interpretation Comments Sodium Lvl (test code = Sodium Lvl) 139 135-145 [facility] HospitalAflheofQJXNAUVMMHJO2330-16-55 11:32:00 Test Item Value Reference Range Interpretation Comments Potassium Lvl (test code = Potassium 4.6 3.5-5.1 Lvl) [facility]JiosqsuXAUMONDTJR0667-76-69 11:32:00 Test Item Value Reference Range Interpretation Comments Lymphocytes (test code = Lymphocytes) 30.4 20.0-40.0 [facility] StationKivvplfXVLLSFSCOR6036-24-51 11:32:00 Test Item Value Reference Range Interpretation Comments Eosinophils (test code = 4.5 See_Comment [A utomated message] The Eosinophils) system which ge nerated this result tra nsmitted reference range : <=4.0. The reference r leo was not used to int erpret this result as normal/abnormal . [facility] StationLpqqzliYBEEXFRGZI4627-85-32 11:32:00 Test Item Value Reference Range Interpretation Comments Monocytes (test code = Monocytes) 13.7 2.0-12.0 [facility] StationZcspcpiVNHOMXCJGM6983-82-96 11:32:00 Test Item Value Reference Range Interpretation Comments Segs-Bands # (test code = Segs-Bands #) 2.6 1.5-8.1 [facility] StationKyowbkyNGMPHUKMVC7916-35-49 11:32:00 Test Item Value Reference Range Interpretation Comments Basophils (test code = 0.7 See_Comment [Aut omated message] The Basophils) system which ge nerated this result tra nsmitted reference range : <=1.0. The reference r leo was not used to int erpret this result as normal/abnormal . [facility] StationPjrmcnhZGVCCOBYLL7700-25-53 11:32:00 Test Item Value Reference Range Interpretation Comments Monocytes # (test code 0.7 See_Comment [Aut omated message] The = Monocytes #) system which generated this result tra nsmitted reference range : <=0.8. The reference r leo was not used to int erpret this result as normal/abnormal . [facility] StationZbnzwgzTDMSXMQQBV4487-19-12 11:32:00 Test Item Value Reference Range Interpretation Comments Lymphocytes # (test code = Lymphocytes 1.6 1.0-5.5 #) [facility] StationBiqjnwdEFZNXOKPID4909-19-62 11:32:00 Test Item Value Reference Range Interpretation Comments Eosinophils # (test code 0.2 See_Comment [A utomated message] The = Eosinophils #) system whic h generated this result tra nsmitted reference range : <=0.5. The reference r leo was not used to int erpret this result as normal/abnormal . [facility] StationQmlhjwkTGUGFGSBLU9489-94-08 11:32:00 Test Item Value Reference Range Interpretation Comments Segs (test code = Segs) 50.7 45.0-75.0 [facility] StationWftuzkmBBAQJINFLY7125-18-60 11:32:00 Test Item Value Reference Range Interpretation [...] iron deficiency anemia, and renal disease. CPT: 39209 [facility] StationJsthorpMSVHIHMJRL8949-22-38 11:32:00 Test Item Value Reference Range Interpretation Comments Hct (test code = Hct) 28.1 36.0-48.0 [facility] StationUdhwmmsBNYDOMWDCE9369-52-79 11:32:00 Test Item Value Reference Range Interpretation Comments RBC (test code = RBC) 3.39 4.20-5.40 [facility] StationVhcelazAOSSFUDOLU1778-63-77 11:32:00 Test Item Value Reference Range Interpretation Comments Hgb (test code = Hgb) 8.9 12.0-16.0 [facility] StationVznqrzcZUFBJSQMJZ0627-77-05 11:32:00 Test Item Value Reference Range Interpretation Comments WBC (test code = WBC) 5.1 3.7-10.4 [facility] StationKomfczpYLWIXSCNKJ4329-99-27 11:32:00 Test Item Value Reference Range Interpretation Comments MPV (test code = MPV) 11.3 7.4-10.4 [facility] StationXunpzrpXVDYYJTWOA2325-21-27 11:32:00 Test Item Value Reference Range Interpretation Comments Platelet (test code = Platelet) 118 133-450 [facility] StationVvlsetdSAKRSBVACI1588-87-45 11:32:00 Test Item Value Reference Range Interpretation Comments MCHC (test code = MCHC) 31.8 32.0-36.0 [facility] StationLeizjkbXIVTAVDEPS6176-92-38 11:32:00 Test Item Value Reference Range Interpretation Comments RDW (test code = RDW) 18.0 11.5-14.5 [facility] StationFdzzcuuNAHHKUVRMO3402-93-43 11:32:00 Test Item Value Reference Range Interpretation Comments MCV (test code = MCV) 83.0 80.0-98.0 [facility] StationBznqwjxKOHBJGVCLU4936-98-94 11:32:00 Test Item Value Reference Range Interpretation Comments MCH (test code = MCH) 26.4 pg 27.0-31.0 [facility] TaylorJifetfhWHODMGGFFF0364-74-59 11:32:00 Test Item Value Reference Range Interpretation Comments C3 Complement (test code = C3 137 88-201 Complement) [facility] TaylorQzsmrzdYONGRKMKSL2930-97-69 11:32:00 Test Item Value Reference Range Interpretation Comments HIV. (test code = Negative *NA*(07/30/16 HIV.) 5:32 AM) [facility] HospitalZqmzrfnSRKQKJPJSLXA9327-67-74 11:32:00 Test Item Value Reference Range Interpretation Comments AGAP (test code = AGAP) 14.6 10.0-20.0 [facility] HospitalZruominMJYIZZQALZAK7191-82-69 11:32:00 Test Item Value Reference Range Interpretation Comments eGFR (test code = eGFR) 33 [facility] HospitalKgfrrlyOQWYWXRGSAVR4863-25-08 11:32:00 Test Item Value Reference Range Interpretation Comments Calcium Lvl (test code = Calcium Lvl) 8.3 8.5-10.5 [facility] HospitalVdcehnpKUCOQTVWXRHC3429-46-72 11:32:00 Test Item Value Reference Range Interpretation Comments Glucose Lvl (test code = Glucose Lvl) 81 70-99 [facility] HospitalRwipkwbROESDDQAXTPW9147-73-41 11:32:00 Test Item Value Reference Range Interpretation Comments Creatinine Lvl (test code = Creatinine 1.95 0.50-1.40 Lvl) [facility] HospitalVulcwusVVGLRAQGXQEY8175-56-82 11:32:00 Test Item Value Reference Range Interpretation Comments BUN (test code = BUN) 55 7-22 [facility] HospitalDrfotovYWQXTISHUZCE0581-32-91 11:32:00 Test Item Value Reference Range Interpretation Comments CO2 (test code = CO2) 19 24-32 [facility] HospitalGikxckkZNPNMPQCAEQR2777-75-52 11:32:00 Test Item Value Reference Range Interpretation Comments Chloride Lvl (test code = Chloride Lvl) 110 95-109 [facility] HospitalApzgntwAZPANQDRJLVW7045-77-84 11:32:00 Test Item Value Reference Range Interpretation Comments Sodium Lvl (test code = Sodium Lvl) 139 135-145 [facility] HospitalPfypgamAHTFJIVUAUMR7618-53-95 11:32:00 Test Item Value Reference Range Interpretation Comments Potassium Lvl (test code = Potassium 4.6 3.5-5.1 Lvl) [facility] StationQwkotwrJDHHCEBZXF4114-22-46 11:32:00 Test Item Value Reference Range Interpretation Comments Lymphocytes (test code = Lymphocytes) 30.4 20.0-40.0 [facility] StationOtltnsbCUYSEZIKLI5893-82-09 11:32:00 Test Item Value Reference Range Interpretation Comments Eosinophils (test code = 4.5 See_Comment [A utomated message] The Eosinophils) system which ge nerated this result tra nsmitted reference range : <=4.0. The reference r leo was not used to int erpret this result as normal/abnormal . [facility] StationXaflazvXZZHEQFXHH5509-76-64 11:32:00 Test Item Value Reference Range Interpretation Comments Monocytes (test code = Monocytes) 13.7 2.0-12.0 [facility] StationHxeytkiCAEUBQXPOV1420-49-80 11:32:00 Test Item Value Reference Range Interpretation Comments Segs-Bands # (test code = Segs-Bands #) 2.6 1.5-8.1 [facility] StationYefpwswTQLEHRVKLN6480-40-17 11:32:00 Test Item Value Reference Range Interpretation Comments Basophils (test code = 0.7 See_Comment [Aut omated message] The Basophils) system which ge nerated this result tra nsmitted reference range : <=1.0. The reference r leo was not used to int erpret this result as normal/abnormal . [facility] StationFyiopqkWHBWBZZLWP3198-62-33 11:32:00 Test Item Value Reference Range Interpretation Comments Monocytes # (test code 0.7 See_Comment [Aut omated message] The = Monocytes #) system which generated this result tra nsmitted reference range : <=0.8. The reference r leo was not used to int erpret this result as normal/abnormal . [facility] StationSxhtgonYROYKSMNCR3404-34-37 11:32:00 Test Item Value Reference Range Interpretation Comments Lymphocytes # (test code = Lymphocytes 1.6 1.0-5.5 #) [facility] StationTnkfoafAPTAFDSEVH5442-89-50 11:32:00 Test Item Value Reference Range Interpretation Comments Eosinophils # (test code 0.2 See_Comment [A utomated message] The = Eosinophils #) system whic h generated this result tra nsmitted reference range : <=0.5. The reference r leo was not used to int erpret this result as normal/abnormal . [facility] StationZnxfmiwKRHQJHJLKD4404-87-94 11:32:00 Test Item Value Reference Range Interpretation Comments Segs (test code = Segs) 50.7 45.0-75.0 [facility] StationQargbvlQUNKJTWDGE2792-30-20 11:32:00 Test Item Value Reference Range Interpretation [...] iron deficiency anemia, and renal disease. CPT: 48988 [facility] StationDtlzvlwKBHPKGCGYT6526-28-06 11:32:00 Test Item Value Reference Range Interpretation Comments Hct (test code = Hct) 28.1 36.0-48.0 [facility] StationNteoyjiMBKVDHZSWH9204-68-03 11:32:00 Test Item Value Reference Range Interpretation Comments RBC (test code = RBC) 3.39 4.20-5.40 [facility] StationLhfqnymBVQSGOHLJF3356-21-19 11:32:00 Test Item Value Reference Range Interpretation Comments Hgb (test code = Hgb) 8.9 12.0-16.0 [facility] StationZelidtoJGAWLHESLQ3924-60-81 11:32:00 Test Item Value Reference Range Interpretation Comments WBC (test code = WBC) 5.1 3.7-10.4 [facility] StationLmrfchrPNWDOMDLYE9717-81-38 11:32:00 Test Item Value Reference Range Interpretation Comments MPV (test code = MPV) 11.3 7.4-10.4 [facility] StationFmxkwqsEWJXAQNSMB9444-72-63 11:32:00 Test Item Value Reference Range Interpretation Comments Platelet (test code = Platelet) 118 133-450 [facility] StationMzkhzlqYSWTJHGBJX6528-76-38 11:32:00 Test Item Value Reference Range Interpretation Comments MCHC (test code = MCHC) 31.8 32.0-36.0 [facility] StationRqzfjtjQQOMPDGBHJ0165-37-66 11:32:00 Test Item Value Reference Range Interpretation Comments RDW (test code = RDW) 18.0 11.5-14.5 [facility] StationRpdarjgBINETPWJPI0285-79-01 11:32:00 Test Item Value Reference Range Interpretation Comments MCV (test code = MCV) 83.0 80.0-98.0 [facility] StationBralvgrXELZWSGCJJ0434-37-64 11:32:00 Test Item Value Reference Range Interpretation Comments MCH (test code = MCH) 26.4 pg 27.0-31.0 [facility] TaylorBxtqqrgEHXCSDNWMP4587-30-09 11:32:00 Test Item Value Reference Range Interpretation Comments C3 Complement (test code = C3 137 88-201 Complement) [facility] TaylorYuphvmbYRAUVKKLXC9384-98-26 11:32:00 Test Item Value Reference Range Interpretation Comments HIV. (test code = Negative *NA*(07/30/16 HIV.) 5:32 AM) [facility] HospitalXgtnkysOVJYZGWKRRWE8201-11-56 11:32:00 Test Item Value Reference Range Interpretation Comments AGAP (test code = AGAP) 14.6 10.0-20.0 [facility] HospitalQdwoijeJTEIFAJGCVOI2879-00-91 11:32:00 Test Item Value Reference Range Interpretation Comments eGFR (test code = eGFR) 33 [facility] HospitalPbatuaxSGNVEIORKXBX2848-51-89 11:32:00 Test Item Value Reference Range Interpretation Comments Calcium Lvl (test code = Calcium Lvl) 8.3 8.5-10.5 [facility] HospitalJtzncbrCREQHPACKUKR2237-33-03 11:32:00 Test Item Value Reference Range Interpretation Comments Glucose Lvl (test code = Glucose Lvl) 81 70-99 [facility] HospitalDgmrygpMUNWMVDDPHDY1616-39-63 11:32:00 Test Item Value Reference Range Interpretation Comments Creatinine Lvl (test code = Creatinine 1.95 0.50-1.40 Lvl) [facility] HospitalWujdgpoGCYLSGTQYTNM5209-21-11 11:32:00 Test Item Value Reference Range Interpretation Comments BUN (test code = BUN) 55 7-22 [facility] HospitalFetebojNHKLZOISYNFT3833-00-33 11:32:00 Test Item Value Reference Range Interpretation Comments CO2 (test code = CO2) 19 24-32 [facility] HospitalAxtkmleMPOFEMMFLJMD8042-54-05 11:32:00 Test Item Value Reference Range Interpretation Comments Chloride Lvl (test code = Chloride Lvl) 110 95-109 [facility] HospitalLlbedojTIGWNRBXNHOS3640-61-47 11:32:00 Test Item Value Reference Range Interpretation Comments Sodium Lvl (test code = Sodium Lvl) 139 135-145 [facility] HospitalPrzpdgaUJFPXIVSTCDY6393-49-28 11:32:00 Test Item Value Reference Range Interpretation Comments Potassium Lvl (test code = Potassium 4.6 3.5-5.1 Lvl) [facility] HospitalIpfaxdfLZMRATGEBK1182-13-95 11:32:00 Test Item Value Reference Range Interpretation Comments Lymphocytes (test code = Lymphocytes) 30.4 20.0-40.0 [facility] StationMdtkpgdIBTSDBDSZT4449-07-12 11:32:00 Test Item Value Reference Range Interpretation Comments Eosinophils (test code = 4.5 See_Comment [A utomated message] The Eosinophils) system which ge nerated this result tra nsmitted reference range : <=4.0. The reference r leo was not used to int erpret this result as normal/abnormal . [facility] StationPguqfmiGSATTFDZMS6046-08-93 11:32:00 Test Item Value Reference Range Interpretation Comments Monocytes (test code = Monocytes) 13.7 2.0-12.0 [facility] StationQniomreDVCWXOLETW6888-85-80 11:32:00 Test Item Value Reference Range Interpretation Comments Segs-Bands # (test code = Segs-Bands #) 2.6 1.5-8.1 [facility] StationKfuoykhKEDRLWRWZO1111-60-87 11:32:00 Test Item Value Reference Range Interpretation Comments Basophils (test code = 0.7 See_Comment [Aut omated message] The Basophils) system which ge nerated this result tra nsmitted reference range : <=1.0. The reference r leo was not used to int erpret this result as normal/abnormal . [facility] StationHxxbvpmHGKWUKFPOI3661-40-00 11:32:00 Test Item Value Reference Range Interpretation Comments Monocytes # (test code 0.7 See_Comment [Aut omated message] The = Monocytes #) system which generated this result tra nsmitted reference range : <=0.8. The reference r leo was not used to int erpret this result as normal/abnormal . [facility] StationLmoeiodMYZBHRKOKW3245-86-12 11:32:00 Test Item Value Reference Range Interpretation Comments Lymphocytes # (test code = Lymphocytes 1.6 1.0-5.5 #) [facility] StationGpwvqgwGWDNPNNNTM7162-56-24 11:32:00 Test Item Value Reference Range Interpretation Comments Eosinophils # (test code 0.2 See_Comment [A utomated message] The = Eosinophils #) system ic h generated this result tra nsmitted reference range : <=0.5. The reference r leo was not used to int erpret this result as normal/abnormal . [facility] StationGenavzgFPGTFKJOFY7866-28-64 11:32:00 Test Item Value Reference Range Interpretation Comments Segs (test code = Segs) 50.7 45.0-75.0 [facility] StationXahwgksAWVNOMIFCQ3603-59-43 11:32:00 Test Item Value Reference Range Interpretation [...] iron deficiency anemia, and renal disease. CPT: 84054 [facility] StationHaeaphiTRWYXZONGC4083-95-37 11:32:00 Test Item Value Reference Range Interpretation Comments Hct (test code = Hct) 28.1 36.0-48.0 [facility] StationApwztfkOXJEBGWUTS4775-48-64 11:32:00 Test Item Value Reference Range Interpretation Comments RBC (test code = RBC) 3.39 4.20-5.40 [facility] StationWvsfjxnZTBMARTTWT0539-97-97 11:32:00 Test Item Value Reference Range Interpretation Comments Hgb (test code = Hgb) 8.9 12.0-16.0 [facility] StationWymjndaFHBNWOKSSY0037-69-78 11:32:00 Test Item Value Reference Range Interpretation Comments WBC (test code = WBC) 5.1 3.7-10.4 [facility] StationDygmkorLQRJVFCBHY8557-70-68 11:32:00 Test Item Value Reference Range Interpretation Comments MPV (test code = MPV) 11.3 7.4-10.4 [facility] StationKkfazrzMZLNJLSVXD9361-63-00 11:32:00 Test Item Value Reference Range Interpretation Comments Platelet (test code = Platelet) 118 133-450 [facility] StationZtcvmlaURWBNEUMBW4236-00-63 11:32:00 Test Item Value Reference Range Interpretation Comments MCHC (test code = MCHC) 31.8 32.0-36.0 [facility] StationSkeorbcNDSKPKBGQV2346-75-66 11:32:00 Test Item Value Reference Range Interpretation Comments RDW (test code = RDW) 18.0 11.5-14.5 [facility] StationEgktcskVJUDOZQNRG2440-69-30 11:32:00 Test Item Value Reference Range Interpretation Comments MCV (test code = MCV) 83.0 80.0-98.0 [facility] StationSliigovODZYXMCPZM6786-92-98 11:32:00 Test Item Value Reference Range Interpretation Comments MCH (test code = MCH) 26.4 pg 27.0-31.0 [facility]burgXaxsburFPJBLBXGTW3903-15-63 11:32:00 Test Item Value Reference Range Interpretation Comments C3 Complement (test code = C3 137 88-201 Complement) [facility] TaylorGriggyxIEGWZINMQO3253-68-48 11:32:00 Test Item Value Reference Range Interpretation Comments HIV. (test code = Negative *NA*(07/30/16 HIV.) 5:32 AM) [facility] HospitalPrgapfiLQNCJCCKTDPX6829-63-18 11:32:00 Test Item Value Reference Range Interpretation Comments AGAP (test code = AGAP) 14.6 10.0-20.0 [facility] HospitalAinafxmPFCVVPJTJGHP0185-58-09 11:32:00 Test Item Value Reference Range Interpretation Comments eGFR (test code = eGFR) 33 [facility] HospitalRsiapyiLNDGKAEQDMPL0938-63-98 11:32:00 Test Item Value Reference Range Interpretation Comments Calcium Lvl (test code = Calcium Lvl) 8.3 8.5-10.5 [facility] HospitalBllhbnqOKCGWJRBAMPV1031-87-84 11:32:00 Test Item Value Reference Range Interpretation Comments Glucose Lvl (test code = Glucose Lvl) 81 70-99 [facility] HospitalCujpitkJCRAQIQIBJSI6625-47-01 11:32:00 Test Item Value Reference Range Interpretation Comments Creatinine Lvl (test code = Creatinine 1.95 0.50-1.40 Lvl) [facility] HospitalYszrqvcWPSVWGNHTENL1614-13-66 11:32:00 Test Item Value Reference Range Interpretation Comments BUN (test code = BUN) 55 7-22 [facility] HospitalWodvyuxMFQPQVHNVWPD4271-81-02 11:32:00 Test Item Value Reference Range Interpretation Comments CO2 (test code = CO2) 19 24-32 [facility] HospitalDaiuivgMDKSHGPDSOEV5949-38-46 11:32:00 Test Item Value Reference Range Interpretation Comments Chloride Lvl (test code = Chloride Lvl) 110 95-109 [facility] HospitalBhrpxoeRTMUQFBRKFHB9821-40-83 11:32:00 Test Item Value Reference Range Interpretation Comments Sodium Lvl (test code = Sodium Lvl) 139 135-145 [facility] HospitalEujtqmxSLLEBIFBIZRN7389-43-45 11:32:00 Test Item Value Reference Range Interpretation Comments Potassium Lvl (test code = Potassium 4.6 3.5-5.1 Lvl) [facility] StationTtexaygBOVSWMNKDN7915-03-14 11:32:00 Test Item Value Reference Range Interpretation Comments Lymphocytes (test code = Lymphocytes) 30.4 20.0-40.0 [facility] StationJcgyyxwHIZJPRQMOG6645-71-71 11:32:00 Test Item Value Reference Range Interpretation Comments Eosinophils (test code = 4.5 See_Comment [A utomated message] The Eosinophils) system which ge nerated this result tra nsmitted reference range : <=4.0. The reference r leo was not used to int erpret this result as normal/abnormal . [facility] StationFuittpnUASTQDHCNV3581-14-01 11:32:00 Test Item Value Reference Range Interpretation Comments Monocytes (test code = Monocytes) 13.7 2.0-12.0 [facility] StationGwxgocfPFHVUMVBMV1948-93-35 11:32:00 Test Item Value Reference Range Interpretation Comments Segs-Bands # (test code = Segs-Bands #) 2.6 1.5-8.1 [facility] StationRxhdebsWEFDCFDUVL7160-89-11 11:32:00 Test Item Value Reference Range Interpretation Comments Basophils (test code = 0.7 See_Comment [Aut omated message] The Basophils) system which ge nerated this result tra nsmitted reference range : <=1.0. The reference r leo was not used to int erpret this result as normal/abnormal . [facility] StationEebwuueVSJRUVOCLD5284-06-94 11:32:00 Test Item Value Reference Range Interpretation Comments Monocytes # (test code 0.7 See_Comment [Aut omated message] The = Monocytes #) system which generated this result tra nsmitted reference range : <=0.8. The reference r leo was not used to int erpret this result as normal/abnormal . [facility] StationGdiuuhlFUFTUMDPHT0643-79-12 11:32:00 Test Item Value Reference Range Interpretation Comments Lymphocytes # (test code = Lymphocytes 1.6 1.0-5.5 #) [facility] StationQqprbkgFLOVZSQXEQ2168-07-06 11:32:00 Test Item Value Reference Range Interpretation Comments Eosinophils # (test code 0.2 See_Comment [A utomated message] The = Eosinophils #) system whic h generated this result tra nsmitted reference range : <=0.5. The reference r leo was not used to int erpret this result as normal/abnormal . [facility] StationZvxvuckSXEPCDDVVR9229-96-73 11:32:00 Test Item Value Reference Range Interpretation Comments Segs (test code = Segs) 50.7 45.0-75.0 [facility] StationNxvdjbdCNVFIFVKIA7949-10-82 11:32:00 Test Item Value Reference Range Interpretation [...] iron deficiency anemia, and renal disease. CPT: 57918 [facility] StationKbltkpsQAHRPFDMLT1053-72-73 11:32:00 Test Item Value Reference Range Interpretation Comments Hct (test code = Hct) 28.1 36.0-48.0 [facility] StationRmnxjdaRWWMXBFWHM5788-78-33 11:32:00 Test Item Value Reference Range Interpretation Comments RBC (test code = RBC) 3.39 4.20-5.40 [facility] StationHjbwncrGPCOANDTUM0715-45-09 11:32:00 Test Item Value Reference Range Interpretation Comments Hgb (test code = Hgb) 8.9 12.0-16.0 [facility] StationXhceiiePCGPNTZCJW6430-05-29 11:32:00 Test Item Value Reference Range Interpretation Comments WBC (test code = WBC) 5.1 3.7-10.4 [facility] StationWnrrjxzNCKJCDAXMW7418-03-59 11:32:00 Test Item Value Reference Range Interpretation Comments MPV (test code = MPV) 11.3 7.4-10.4 [facility] StationInrlntrCOVALKTLVR8787-13-36 11:32:00 Test Item Value Reference Range Interpretation Comments Platelet (test code = Platelet) 118 133-450 [facility] StationGtnbjluOZRGZIJAVW2652-04-49 11:32:00 Test Item Value Reference Range Interpretation Comments MCHC (test code = MCHC) 31.8 32.0-36.0 [facility] StationFailqzwXUZDZFIEHG6825-99-50 11:32:00 Test Item Value Reference Range Interpretation Comments RDW (test code = RDW) 18.0 11.5-14.5 [facility] StationPwylsneLTTYHXZZFH6073-99-94 11:32:00 Test Item Value Reference Range Interpretation Comments MCV (test code = MCV) 83.0 80.0-98.0 [facility] StationDbbkzcsFRWNCBEKTI4298-56-95 11:32:00 Test Item Value Reference Range Interpretation Comments MCH (test code = MCH) 26.4 pg 27.0-31.0 [facility] TaylorHsvygdzUCMUYEEOZB0879-62-05 11:32:00 Test Item Value Reference Range Interpretation Comments C3 Complement (test code = C3 137 88-201 Complement) [facility] TaylorIzogmheANGBXRXNCN9930-11-67 11:32:00 Test Item Value Reference Range Interpretation Comments HIV. (test code = Negative *NA*(07/30/16 HIV.) 5:32 AM) [facility] HospitalIgqeqtsVNNOOSCXWLLK6533-19-06 11:32:00 Test Item Value Reference Range Interpretation Comments AGAP (test code = AGAP) 14.6 10.0-20.0 [facility] HospitalAppbaxsGGBDAXTSQLGU9618-20-05 11:32:00 Test Item Value Reference Range Interpretation Comments eGFR (test code = eGFR) 33 [facility] HospitalSzvojmvOVPWQJDOEFJK3184-56-61 11:32:00 Test Item Value Reference Range Interpretation Comments Calcium Lvl (test code = Calcium Lvl) 8.3 8.5-10.5 [facility] HospitalLqfmwpqXXJZDWJXGAPC3658-39-20 11:32:00 Test Item Value Reference Range Interpretation Comments Glucose Lvl (test code = Glucose Lvl) 81 70-99 [facility] HospitalMvmjkwsRVVCRJRMTGAS1707-59-51 11:32:00 Test Item Value Reference Range Interpretation Comments Creatinine Lvl (test code = Creatinine 1.95 0.50-1.40 Lvl) [facility] HospitalTzogmpyXWVPTFDIDPPX9449-97-41 11:32:00 Test Item Value Reference Range Interpretation Comments BUN (test code = BUN) 55 7-22 [facility] HospitalPfjtpwfEDVENOZKDZBI6851-44-82 11:32:00 Test Item Value Reference Range Interpretation Comments CO2 (test code = CO2) 19 24-32 [facility] HospitalTgzhqovHPUMNQKHNGCL8943-16-57 11:32:00 Test Item Value Reference Range Interpretation Comments Chloride Lvl (test code = Chloride Lvl) 110 95-109 [facility] HospitalKdsumvlQPUTMIAJZAHF0241-97-00 11:32:00 Test Item Value Reference Range Interpretation Comments Sodium Lvl (test code = Sodium Lvl) 139 135-145 [facility]landIszjlizYIWCKBCXGCNA1981-23-98 11:32:00 Test Item Value Reference Range Interpretation Comments Potassium Lvl (test code = Potassium 4.6 3.5-5.1 Lvl) [facility] StationBbsblrfAYMQTACXLY4990-06-60 11:32:00 Test Item Value Reference Range Interpretation Comments Lymphocytes (test code = Lymphocytes) 30.4 20.0-40.0 [facility] StationIhyjirdVPVNSDKXXG5330-36-11 11:32:00 Test Item Value Reference Range Interpretation Comments Eosinophils (test code = 4.5 See_Comment [A utomated message] The Eosinophils) system which ge nerated this result tra nsmitted reference range : <=4.0. The reference r leo was not used to int erpret this result as normal/abnormal . [facility] StationRzukisfZNABDGQYCH5584-60-46 11:32:00 Test Item Value Reference Range Interpretation Comments Monocytes (test code = Monocytes) 13.7 2.0-12.0 [facility] StationYrpnptmSSNFMMQXNK2660-94-70 11:32:00 Test Item Value Reference Range Interpretation Comments Segs-Bands # (test code = Segs-Bands #) 2.6 1.5-8.1 [facility] StationXptndlrEHWCSPYASW7995-43-84 11:32:00 Test Item Value Reference Range Interpretation Comments Basophils (test code = 0.7 See_Comment [Aut omated message] The Basophils) system which ge nerated this result tra nsmitted reference range : <=1.0. The reference r leo was not used to int erpret this result as normal/abnormal . [facility] StationHiiuiueQECZKBXHOV7095-45-61 11:32:00 Test Item Value Reference Range Interpretation Comments Monocytes # (test code 0.7 See_Comment [Aut omated message] The = Monocytes #) system which generated this result tra nsmitted reference range : <=0.8. The reference r leo was not used to int erpret this result as normal/abnormal . [facility] StationWamzhfdBFVPXBTXIV9123-04-50 11:32:00 Test Item Value Reference Range Interpretation Comments Lymphocytes # (test code = Lymphocytes 1.6 1.0-5.5 #) [facility] StationTxmvznlTACLTLWWCK0588-88-56 11:32:00 Test Item Value Reference Range Interpretation Comments Eosinophils # (test code 0.2 See_Comment [A utomated message] The = Eosinophils #) system [employer] generated this result tra nsmitted reference range : <=0.5. The reference r leo was not used to int erpret this result as normal/abnormal . [facility] StationZuwavtwOLEECPYMWA9403-95-24 11:32:00 Test Item Value Reference Range Interpretation Comments Segs (test code = Segs) 50.7 45.0-75.0 [facility] StationBoeqpljUHMVZBHNEC0625-60-56 11:32:00 Test Item Value Reference Range Interpretation [...] iron deficiency anemia, and renal disease. CPT: 85681 [facility] StationVcbfqpoJSIMWMNWEP5181-87-57 11:32:00 Test Item Value Reference Range Interpretation Comments Hct (test code = Hct) 28.1 36.0-48.0 [facility] StationNpjmuvpBGXETOKXUK4790-74-90 11:32:00 Test Item Value Reference Range Interpretation Comments RBC (test code = RBC) 3.39 4.20-5.40 [facility] StationMvgmxhnNYFKIBTDYW3088-64-96 11:32:00 Test Item Value Reference Range Interpretation Comments Hgb (test code = Hgb) 8.9 12.0-16.0 [facility] StationShludhcWYZYJKFGAC2546-46-30 11:32:00 Test Item Value Reference Range Interpretation Comments WBC (test code = WBC) 5.1 3.7-10.4 [facility] StationCpjxttuQUCRYWZRRR3966-82-58 11:32:00 Test Item Value Reference Range Interpretation Comments MPV (test code = MPV) 11.3 7.4-10.4 [facility] StationNzslmzrOOAUZEIJNA6234-16-76 11:32:00 Test Item Value Reference Range Interpretation Comments Platelet (test code = Platelet) 118 133-450 [facility] StationVkhxzatOODMVMJIFR9861-38-69 11:32:00 Test Item Value Reference Range Interpretation Comments MCHC (test code = MCHC) 31.8 32.0-36.0 [facility] StationEsaociwGHLGNQLKKC8457-78-46 11:32:00 Test Item Value Reference Range Interpretation Comments RDW (test code = RDW) 18.0 11.5-14.5 [facility] StationRhriuqbHVCHCKNJME0517-57-02 11:32:00 Test Item Value Reference Range Interpretation Comments MCV (test code = MCV) 83.0 80.0-98.0 [facility] StationFcigbyyDWKPQLIAUE8203-61-64 11:32:00 Test Item Value Reference Range Interpretation Comments MCH (test code = MCH) 26.4 pg 27.0-31.0 [facility] TaylorMbojglgUPXDYXKRYA7656-15-52 11:32:00 Test Item Value Reference Range Interpretation Comments C3 Complement (test code = C3 137 88-201 Complement) [facility] TaylorEfedghnVFSDYQWUNE2906-61-78 11:32:00 Test Item Value Reference Range Interpretation Comments HIV. (test code = Negative *NA*(07/30/16 HIV.) 5:32 AM) [facility] StationLcfejguQNCRGRBKXN2344-18-51 11:05:00 Test Item Value Reference Range Interpretation [...] iron deficiency anemia, and renal disease. CPT: 15411 [facility] TaylorSmtddmmZMOINYWBLZ9459-11-08 11:05:00 Test Item Value Reference Range Interpretation Comments HIV. (test code = Negative *NA*(07/29/16 HIV.) 5:05 AM) [facility] TaylorZsvfkqnPATYSGMIAJ6948-49-62 11:05:00 Test Item Value Reference Range Interpretation Comments C3 Complement (test code = C3 92 88-201 Complement) [facility] StationWyjuxfoYKCYUMYDEO8092-44-46 11:05:00 Test Item Value Reference Range Interpretation [...] iron deficiency anemia, and renal disease. CPT: 88661 [facility] TaylorOokapraLNFXKCWVXE3885-53-76 11:05:00 Test Item Value Reference Range Interpretation Comments HIV. (test code = Negative *NA*(07/29/16 HIV.) 5:05 AM) [facility] TaylorRubioajCLHZDXGNQQ2961-93-97 11:05:00 Test Item Value Reference Range Interpretation Comments C3 Complement (test code = C3 92 88-201 Complement) [facility] StationGrwinkxVSNHXBMFSS6025-35-13 11:05:00 Test Item Value Reference Range Interpretation [...] iron deficiency anemia, and renal disease. CPT: 42413 [facility] TaylorIxrrpwwDZGBVZWJQL8304-53-37 11:05:00 Test Item Value Reference Range Interpretation Comments HIV. (test code = Negative *NA*(07/29/16 HIV.) 5:05 AM) [facility] TaylorZzhsqyrLRMBMWSQQA1172-74-79 11:05:00 Test Item Value Reference Range Interpretation Comments C3 Complement (test code = C3 92 88-201 Complement) [facility] StationDdpxecfOLCLGHJLMY5785-98-99 11:05:00 Test Item Value Reference Range Interpretation [...] iron deficiency anemia, and renal disease. CPT: 98052 [facility] TaylorPkphlunWHXLDJXHZK3522-61-27 11:05:00 Test Item Value Reference Range Interpretation Comments HIV. (test code = Negative *NA*(07/29/16 HIV.) 5:05 AM) [facility] TaylorHhomsgxNLFBMYBEAP9446-14-29 11:05:00 Test Item Value Reference Range Interpretation Comments C3 Complement (test code = C3 92 88-201 Complement) [facility] StationPobliswLVJMLVTCXL1591-68-81 11:05:00 Test Item Value Reference Range Interpretation [...] iron deficiency anemia, and renal disease. CPT: 12043 [facility]burgSaxccprCLXXQBSDKM3747-25-78 11:05:00 Test Item Value Reference Range Interpretation Comments HIV. (test code = Negative *NA*(07/29/16 HIV.) 5:05 AM) [facility] TaylorFpocepjDGRZCQOKDU2598-35-85 11:05:00 Test Item Value Reference Range Interpretation Comments C3 Complement (test code = C3 92 88-201 Complement) [facility]2017-02-07 15:50:00 Test Item Value Reference Range Interpretation Comments eGFR (test code = eGFR) 25 [facility]2017-02-07 15:50:00 Test Item Value Reference Range Interpretation Comments BUN (test code = BUN) 55 7-22 [facility]2017-02-07 15:50:00 Test Item Value Reference Range Interpretation Comments CO2 (test code = CO2) 23 24-32 [facility]2017-02-07 15:50:00 Test Item Value Reference Range Interpretation Comments Chloride Lvl (test code = Chloride Lvl) 109 95-109 [facility]2017-02-07 15:50:00 Test Item Value Reference Range Interpretation Comments Glucose Lvl (test code = Glucose Lvl) 101 70-99 [facility]2017-02-07 15:50:00 Test Item Value Reference Range Interpretation Comments Potassium Lvl (test code = Potassium 4.0 3.5-5.1 Lvl) [facility]2017-02-07 15:50:00 Test Item Value Reference Range Interpretation Comments Sodium Lvl (test code = Sodium Lvl) 141 135-145 [facility]2017-02-07 15:50:00 Test Item Value Reference Range Interpretation Comments AGAP (test code = AGAP) 13.0 10.0-20.0 [facility]2017-02-07 15:50:00 Test Item Value Reference Range Interpretation Comments Calcium Lvl (test code = Calcium Lvl) 7.7 8.5-10.5 [facility]2017-02-07 15:50:00 Test Item Value Reference Range Interpretation Comments Creatinine Lvl (test code = Creatinine 2.49 0.50-1.40 Lvl) [facility] StationIpuujnnEZUWCAFRED3556-13-78 15:50:00 Test Item Value Reference Range Interpretation Comments PT (test code = PT) 14.8 s 12.0-14.7 [facility] StationPatvetuWMXAQOZMIF1275-58-58 15:50:00 Test Item Value Reference Range Interpretation Comments PTT (test code = PTT) 40.8 s 22.9-35.8 [facility] StationYjjrpqvAVTOCNSUSP6812-37-33 15:50:00 Test Item Value Reference Range Interpretation Comments INR (test code = INR) 1.14 0.85-1.17 [facility]burgYwqkpvmDNNVAUIPJR2304-66-05 15:50:00 Test Item Value Reference Range Interpretation Comments C3 Complement (test code = C3 94 88-201 Complement) [facility]2017-02-07 15:50:00 Test Item Value Reference Range Interpretation Comments eGFR (test code = eGFR) 25 [facility]2017-02-07 15:50:00 Test Item Value Reference Range Interpretation Comments BUN (test code = BUN) 55 7-22 [facility]2017-02-07 15:50:00 Test Item Value Reference Range Interpretation Comments CO2 (test code = CO2) 23 24-32 [facility]2017-02-07 15:50:00 Test Item Value Reference Range Interpretation Comments Chloride Lvl (test code = Chloride Lvl) 109 95-109 [facility]2017-02-07 15:50:00 Test Item Value Reference Range Interpretation Comments Glucose Lvl (test code = Glucose Lvl) 101 70-99 [facility]2017-02-07 15:50:00 Test Item Value Reference Range Interpretation Comments Potassium Lvl (test code = Potassium 4.0 3.5-5.1 Lvl) [facility]2017-02-07 15:50:00 Test Item Value Reference Range Interpretation Comments Sodium Lvl (test code = Sodium Lvl) 141 135-145 [facility]2017-02-07 15:50:00 Test Item Value Reference Range Interpretation Comments AGAP (test code = AGAP) 13.0 10.0-20.0 [facility]2017-02-07 15:50:00 Test Item Value Reference Range Interpretation Comments Calcium Lvl (test code = Calcium Lvl) 7.7 8.5-10.5 [facility]2017-02-07 15:50:00 Test Item Value Reference Range Interpretation Comments Creatinine Lvl (test code = Creatinine 2.49 0.50-1.40 Lvl) [facility] StationIilypiiAYJTCDKHMU0560-37-94 15:50:00 Test Item Value Reference Range Interpretation Comments PT (test code = PT) 14.8 s 12.0-14.7 [facility] StationFbarbtjLVPISFSOTQ3536-07-53 15:50:00 Test Item Value Reference Range Interpretation Comments PTT (test code = PTT) 40.8 s 22.9-35.8 [facility] StationSjtjwivUKUIXGTYRC3452-20-00 15:50:00 Test Item Value Reference Range Interpretation Comments INR (test code = INR) 1.14 0.85-1.17 [facility]BvwqooaQFXEOEJHOB6125-33-09 15:50:00 Test Item Value Reference Range Interpretation Comments C3 Complement (test code = C3 94 88-201 Complement) [facility]2017-02-07 15:50:00 Test Item Value Reference Range Interpretation Comments eGFR (test code = eGFR) 25 [facility]2017-02-07 15:50:00 Test Item Value Reference Range Interpretation Comments BUN (test code = BUN) 55 7-22 [facility]2017-02-07 15:50:00 Test Item Value Reference Range Interpretation Comments CO2 (test code = CO2) 23 24-32 [facility]2017-02-07 15:50:00 Test Item Value Reference Range Interpretation Comments Chloride Lvl (test code = Chloride Lvl) 109 95-109 [facility]2017-02-07 15:50:00 Test Item Value Reference Range Interpretation Comments Glucose Lvl (test code = Glucose Lvl) 101 70-99 [facility]2017-02-07 15:50:00 Test Item Value Reference Range Interpretation Comments Potassium Lvl (test code = Potassium 4.0 3.5-5.1 Lvl) [facility]2017-02-07 15:50:00 Test Item Value Reference Range Interpretation Comments Sodium Lvl (test code = Sodium Lvl) 141 135-145 [facility]2017-02-07 15:50:00 Test Item Value Reference Range Interpretation Comments AGAP (test code = AGAP) 13.0 10.0-20.0 [facility]2017-02-07 15:50:00 Test Item Value Reference Range Interpretation Comments Calcium Lvl (test code = Calcium Lvl) 7.7 8.5-10.5 [facility]2017-02-07 15:50:00 Test Item Value Reference Range Interpretation Comments Creatinine Lvl (test code = Creatinine 2.49 0.50-1.40 Lvl) [facility] StationEiikmzyMEXNPIZENH7000-91-52 15:50:00 Test Item Value Reference Range Interpretation Comments PT (test code = PT) 14.8 s 12.0-14.7 [facility] StationWgsmrbbBGQUAVDWGK1129-61-87 15:50:00 Test Item Value Reference Range Interpretation Comments PTT (test code = PTT) 40.8 s 22.9-35.8 [facility] StationKxniqonMAUNFPKFDO2444-73-17 15:50:00 Test Item Value Reference Range Interpretation Comments INR (test code = INR) 1.14 0.85-1.17 [facility]FiukxwcRYALGJZEDN0085-20-13 15:50:00 Test Item Value Reference Range Interpretation Comments C3 Complement (test code = C3 94 88-201 Complement) [facility]2017-02-07 15:50:00 Test Item Value Reference Range Interpretation Comments eGFR (test code = eGFR) 25 [facility]2017-02-07 15:50:00 Test Item Value Reference Range Interpretation Comments BUN (test code = BUN) 55 7-22 [facility]2017-02-07 15:50:00 Test Item Value Reference Range Interpretation Comments CO2 (test code = CO2) 23 24-32 [facility]2017-02-07 15:50:00 Test Item Value Reference Range Interpretation Comments Chloride Lvl (test code = Chloride Lvl) 109 95-109 [facility]2017-02-07 15:50:00 Test Item Value Reference Range Interpretation Comments Glucose Lvl (test code = Glucose Lvl) 101 70-99 [facility]2017-02-07 15:50:00 Test Item Value Reference Range Interpretation Comments Potassium Lvl (test code = Potassium 4.0 3.5-5.1 Lvl) [facility]2017-02-07 15:50:00 Test Item Value Reference Range Interpretation Comments Sodium Lvl (test code = Sodium Lvl) 141 135-145 [facility]2017-02-07 15:50:00 Test Item Value Reference Range Interpretation Comments AGAP (test code = AGAP) 13.0 10.0-20.0 [facility]2017-02-07 15:50:00 Test Item Value Reference Range Interpretation Comments Calcium Lvl (test code = Calcium Lvl) 7.7 8.5-10.5 [facility]2017-02-07 15:50:00 Test Item Value Reference Range Interpretation Comments Creatinine Lvl (test code = Creatinine 2.49 0.50-1.40 Lvl) [facility] StationPpgctpzVCSXNXXVTM6445-48-87 15:50:00 Test Item Value Reference Range Interpretation Comments PT (test code = PT) 14.8 s 12.0-14.7 [facility] StationZidgrfvYPBLTCACDS3845-00-28 15:50:00 Test Item Value Reference Range Interpretation Comments PTT (test code = PTT) 40.8 s 22.9-35.8 [facility] StationFalshumMIZFKKGLJQ8749-26-81 15:50:00 Test Item Value Reference Range Interpretation Comments INR (test code = INR) 1.14 0.85-1.17 [facility]LxwqenpOKLVLDTRXG3564-49-18 15:50:00 Test Item Value Reference Range Interpretation Comments C3 Complement (test code = C3 94 88-201 Complement) [facility]2017-02-07 15:50:00 Test Item Value Reference Range Interpretation Comments eGFR (test code = eGFR) 25 [facility]2017-02-07 15:50:00 Test Item Value Reference Range Interpretation Comments BUN (test code = BUN) 55 7-22 [facility]2017-02-07 15:50:00 Test Item Value Reference Range Interpretation Comments CO2 (test code = CO2) 23 24-32 [facility]2017-02-07 15:50:00 Test Item Value Reference Range Interpretation Comments Chloride Lvl (test code = Chloride Lvl) 109 95-109 [facility]2017-02-07 15:50:00 Test Item Value Reference Range Interpretation Comments Glucose Lvl (test code = Glucose Lvl) 101 70-99 [facility]2017-02-07 15:50:00 Test Item Value Reference Range Interpretation Comments Potassium Lvl (test code = Potassium 4.0 3.5-5.1 Lvl) [facility]2017-02-07 15:50:00 Test Item Value Reference Range Interpretation Comments Sodium Lvl (test code = Sodium Lvl) 141 135-145 [facility]2017-02-07 15:50:00 Test Item Value Reference Range Interpretation Comments AGAP (test code = AGAP) 13.0 10.0-20.0 [facility]2017-02-07 15:50:00 Test Item Value Reference Range Interpretation Comments Calcium Lvl (test code = Calcium Lvl) 7.7 8.5-10.5 [facility]2017-02-07 15:50:00 Test Item Value Reference Range Interpretation Comments Creatinine Lvl (test code = Creatinine 2.49 0.50-1.40 Lvl) [facility] StationRhuquvtFMJCKETMGB0257-51-89 15:50:00 Test Item Value Reference Range Interpretation Comments PT (test code = PT) 14.8 s 12.0-14.7 [facility] StationEyovpmkOTMFHRRXPC2999-43-06 15:50:00 Test Item Value Reference Range Interpretation Comments PTT (test code = PTT) 40.8 s 22.9-35.8 [facility] StationUkagwmdOXJLNRNSEX4835-42-82 15:50:00 Test Item Value Reference Range Interpretation Comments INR (test code = INR) 1.14 0.85-1.17 [facility]KtpnheaUYJZJLLLTV1350-32-04 15:50:00 Test Item Value Reference Range Interpretation Comments C3 Complement (test code = C3 94 88-201 Complement) [facility] StationFsuduzgKVUOOBYMZA6564-56-44 10:35:00 Test Item Value Reference Range Interpretation Comments Lymphocytes # (test code = Lymphocytes 1.7 1.0-5.5 #) [facility] StationSpbmwhyYLYWQLKWZT6352-06-20 10:35:00 Test Item Value Reference Range Interpretation Comments Segs-Bands # (test code = Segs-Bands #) 2.7 1.5-8.1 [facility] StationEjetzmnUSIAMLPEBL4490-40-18 10:35:00 Test Item Value Reference Range Interpretation Comments Eosinophils # (test code 0.1 See_Comment [A utomated message] The = Eosinophils #) system whic h generated this result tra nsmitted reference range : <=0.5. The reference r leo was not used to int erpret this result as normal/abnormal . [facility] StationYryiqbvESIJKPPWDQ2177-00-37 10:35:00 Test Item Value Reference Range Interpretation Comments Monocytes # (test code 0.7 See_Comment [Aut omated message] The = Monocytes #) system which generated this result tra nsmitted reference range : <=0.8. The reference r leo was not used to int erpret this result as normal/abnormal . [facility] StationWgvumcjOPSPHBBBJT8578-43-67 10:35:00 Test Item Value Reference Range Interpretation Comments Segs (test code = Segs) 51.3 45.0-75.0 [facility] StationByvrysfMRYBGRACWP0944-52-08 10:35:00 Test Item Value Reference Range Interpretation Comments Lymphocytes (test code = Lymphocytes) 31.6 20.0-40.0 [facility] StationDtkxztoYBNXJSGKAX5903-64-20 10:35:00 Test Item Value Reference Range Interpretation Comments Monocytes (test code = Monocytes) 14.1 2.0-12.0 [facility] StationGqxkcflPVJMDNGCRY9066-92-66 10:35:00 Test Item Value Reference Range Interpretation Comments Eosinophils (test code = 2.6 See_Comment [A utomated message] The Eosinophils) system which ge nerated this result tra nsmitted reference range : <=4.0. The reference r leo was not used to int erpret this result as normal/abnormal . [facility] StationMfismiyUMEDIUJIQA4009-73-09 10:35:00 Test Item Value Reference Range Interpretation Comments Basophils (test code = 0.4 See_Comment [Aut omated message] The Basophils) system which ge nerated this result tra nsmitted reference range : <=1.0. The reference r leo was not used to int erpret this result as normal/abnormal . [facility] StationIregxapETVYQLIVNO2254-95-62 10:35:00 Test Item Value Reference Range Interpretation Comments PB Smear Path Peripheral blood smear shows (test code = PB hypochromic normocytic Smear Path) anemia with anisopoikilocytsosis, no increase in schistocytes, slight polychromasia, a few estella cells, moderate thrombocytopenia. Impression: (1) no evidence of microangiopathic hemolysis, (2) RBC morphology is suggestive of anemia of chronic disease or iron deficiency anemia, and renal disease. CPT: 62121 [facility] StationIreflzuBDYWNQICXK3084-97-72 10:35:00 Test Item Value Reference Range Interpretation Comments Hct (test code = Hct) 29.3 36.0-48.0 [facility] StationCdlpcfdKBUNRGKATX1049-93-27 10:35:00 Test Item Value Reference Range Interpretation Comments Hgb (test code = Hgb) 9.2 12.0-16.0 [facility] StationPbfjgesPKYKIQQWUW3885-73-70 10:35:00 Test Item Value Reference Range Interpretation Comments RBC (test code = RBC) 3.54 4.20-5.40 [facility] StationSmigldyIVEBXURVXH5952-02-81 10:35:00 Test Item Value Reference Range Interpretation Comments WBC (test code = WBC) 5.3 3.7-10.4 [facility] StationNztobkbWLFSQXCVHW8774-53-79 10:35:00 Test Item Value Reference Range Interpretation Comments Platelet (test code = Platelet) 87 133-450 [facility] StationLxmbunwISVFLLNQQQ5766-19-88 10:35:00 Test Item Value Reference Range Interpretation Comments MCHC (test code = MCHC) 31.4 32.0-36.0 [facility] StationKcmypquASDSXVBWWY0528-04-09 10:35:00 Test Item Value Reference Range Interpretation Comments RDW (test code = RDW) 17.9 11.5-14.5 [facility] StationFzsxgkvMECWRBEFCE8300-23-67 10:35:00 Test Item Value Reference Range Interpretation Comments MPV (test code = MPV) 10.9 7.4-10.4 [facility] StationMjknrsmFOCTQANLGU4048-15-76 10:35:00 Test Item Value Reference Range Interpretation Comments MCH (test code = MCH) 26.0 pg 27.0-31.0 [facility] StationEwxliosISIJOQPXMM8995-33-47 10:35:00 Test Item Value Reference Range Interpretation Comments MCV (test code = MCV) 82.8 80.0-98.0 [facility] TaylorGjvjfnrJIDLDUKVGB0462-11-11 10:35:00 Test Item Value Reference Range Interpretation Comments HIV. (test code = Negative *NA*(07/28/16 HIV.) 4:35 AM) [facility] StationTzjihcuNSTTXJYDPM8670-86-54 10:35:00 Test Item Value Reference Range Interpretation Comments Lymphocytes # (test code = Lymphocytes 1.7 1.0-5.5 #) [facility] StationOkjerjzWRLKXYOLJZ7917-80-15 10:35:00 Test Item Value Reference Range Interpretation Comments Segs-Bands # (test code = Segs-Bands #) 2.7 1.5-8.1 [facility] StationGelrdmrPQPCXLINDS8757-87-13 10:35:00 Test Item Value Reference Range Interpretation Comments Eosinophils # (test code 0.1 See_Comment [A utomated message] The = Eosinophils #) system whic h generated this result tra nsmitted reference range : <=0.5. The reference r leo was not used to int erpret this result as normal/abnormal . [facility] StationMwiackeCZDAYXMVQJ6911-46-42 10:35:00 Test Item Value Reference Range Interpretation Comments Monocytes # (test code 0.7 See_Comment [Aut omated message] The = Monocytes #) system which generated this result tra nsmitted reference range : <=0.8. The reference r leo was not used to int erpret this result as normal/abnormal . [facility] StationBvvvhvqFITKDSZSJL9955-34-46 10:35:00 Test Item Value Reference Range Interpretation Comments Segs (test code = Segs) 51.3 45.0-75.0 [facility] StationBebmvsmVWDOUIHPDL0311-99-95 10:35:00 Test Item Value Reference Range Interpretation Comments Lymphocytes (test code = Lymphocytes) 31.6 20.0-40.0 [facility] StationIlhfbpyFTFTABLBKQ8547-75-53 10:35:00 Test Item Value Reference Range Interpretation Comments Monocytes (test code = Monocytes) 14.1 2.0-12.0 [facility] StationXpwhrpvAKHOQTEGQI2538-19-60 10:35:00 Test Item Value Reference Range Interpretation Comments Eosinophils (test code = 2.6 See_Comment [A utomated message] The Eosinophils) system which ge nerated this result tra nsmitted reference range : <=4.0. The reference r leo was not used to int erpret this result as normal/abnormal . [facility] StationEbkbekjLJEHKXARQM3710-78-17 10:35:00 Test Item Value Reference Range Interpretation Comments Basophils (test code = 0.4 See_Comment [Aut omated message] The Basophils) system which ge nerated this result tra nsmitted reference range : <=1.0. The reference r leo was not used to int erpret this result as normal/abnormal . [facility] StationKbfjuksZKTEHRMXIA1562-35-16 10:35:00 Test Item Value Reference Range Interpretation Comments PB Smear Path Peripheral blood smear shows (test code = PB hypochromic normocytic Smear Path) anemia with anisopoikilocytsosis, no increase in schistocytes, slight polychromasia, a few estella cells, moderate thrombocytopenia. Impression: (1) no evidence of microangiopathic hemolysis, (2) RBC morphology is suggestive of anemia of chronic disease or iron deficiency anemia, and renal disease. CPT: 34334 [facility] StationBbahvhyUFZVGJXJJV3256-69-47 10:35:00 Test Item Value Reference Range Interpretation Comments Hct (test code = Hct) 29.3 36.0-48.0 [facility] StationHjybckbDOSQGKPDSM0637-94-01 10:35:00 Test Item Value Reference Range Interpretation Comments Hgb (test code = Hgb) 9.2 12.0-16.0 [facility] StationVbkvvvvTXYWHPTKNA1661-79-19 10:35:00 Test Item Value Reference Range Interpretation Comments RBC (test code = RBC) 3.54 4.20-5.40 [facility] StationMjlavhcYEAHEANHES0909-53-85 10:35:00 Test Item Value Reference Range Interpretation Comments WBC (test code = WBC) 5.3 3.7-10.4 [facility] StationYwzodkaBTOFJIOWAH2784-35-14 10:35:00 Test Item Value Reference Range Interpretation Comments Platelet (test code = Platelet) 87 133-450 [facility] StationTmkmxanCKHDUZQAIK7464-71-46 10:35:00 Test Item Value Reference Range Interpretation Comments MCHC (test code = MCHC) 31.4 32.0-36.0 [facility] StationCujhvfcWMPQEMWMCD7318-49-67 10:35:00 Test Item Value Reference Range Interpretation Comments RDW (test code = RDW) 17.9 11.5-14.5 [facility] StationQmldorhJEGYNUXKZB1514-01-46 10:35:00 Test Item Value Reference Range Interpretation Comments MPV (test code = MPV) 10.9 7.4-10.4 [facility] StationVmometzLEMMLDUBZB9370-65-37 10:35:00 Test Item Value Reference Range Interpretation Comments MCH (test code = MCH) 26.0 pg 27.0-31.0 [facility]MdgqqeuWFMOORMPQG5496-24-64 10:35:00 Test Item Value Reference Range Interpretation Comments MCV (test code = MCV) 82.8 80.0-98.0 [facility]burgQcxstsiFJSPKKBJCS7241-70-47 10:35:00 Test Item Value Reference Range Interpretation Comments HIV. (test code = Negative *NA*(07/28/16 HIV.) 4:35 AM) [facility] StationQdnkimaOTFFSYYJYN2534-21-97 10:35:00 Test Item Value Reference Range Interpretation Comments Lymphocytes # (test code = Lymphocytes 1.7 1.0-5.5 #) [facility] StationQmkjsocKVNCAGQBMO2766-18-07 10:35:00 Test Item Value Reference Range Interpretation Comments Segs-Bands # (test code = Segs-Bands #) 2.7 1.5-8.1 [facility] StationZmepzplKTHKFXZUUQ7803-55-04 10:35:00 Test Item Value Reference Range Interpretation Comments Eosinophils # (test code 0.1 See_Comment [A utomated message] The = Eosinophils #) system whic h generated this result tra nsmitted reference range : <=0.5. The reference r leo was not used to int erpret this result as normal/abnormal . [facility] StationGrbwwmtQPMGIUKMUQ5565-72-31 10:35:00 Test Item Value Reference Range Interpretation Comments Monocytes # (test code 0.7 See_Comment [Aut omated message] The = Monocytes #) system which generated this result tra nsmitted reference range : <=0.8. The reference r leo was not used to int erpret this result as normal/abnormal . [facility] StationZyxylpwFJDYAZRRWU8406-59-52 10:35:00 Test Item Value Reference Range Interpretation Comments Segs (test code = Segs) 51.3 45.0-75.0 [facility] StationGgapqrmQBTGXGMECE8515-38-75 10:35:00 Test Item Value Reference Range Interpretation Comments Lymphocytes (test code = Lymphocytes) 31.6 20.0-40.0 [facility] StationCjsqnhlXFEJYESPCU7187-75-32 10:35:00 Test Item Value Reference Range Interpretation Comments Monocytes (test code = Monocytes) 14.1 2.0-12.0 [facility] StationZidqjxkSSWUJYXGSS5239-78-68 10:35:00 Test Item Value Reference Range Interpretation Comments Eosinophils (test code = 2.6 See_Comment [A utomated message] The Eosinophils) system which ge nerated this result tra nsmitted reference range : <=4.0. The reference r leo was not used to int erpret this result as normal/abnormal . [facility] StationJusginaIOJJIVYRVZ0653-47-02 10:35:00 Test Item Value Reference Range Interpretation Comments Basophils (test code = 0.4 See_Comment [Aut omated message] The Basophils) system which ge nerated this result tra nsmitted reference range : <=1.0. The reference r leo was not used to int erpret this result as normal/abnormal . [facility] StationLrzbeccWXFETQWCDF5278-23-04 10:35:00 Test Item Value Reference Range Interpretation Comments PB Smear Path Peripheral blood smear shows (test code = PB hypochromic normocytic Smear Path) anemia with anisopoikilocytsosis, no increase in schistocytes, slight polychromasia, a few estella cells, moderate thrombocytopenia. Impression: (1) no evidence of microangiopathic hemolysis, (2) RBC morphology is suggestive of anemia of chronic disease or iron deficiency anemia, and renal disease. CPT: 28298 [facility] StationSpkmlngYWECBGPVCX7438-66-98 10:35:00 Test Item Value Reference Range Interpretation Comments Hct (test code = Hct) 29.3 36.0-48.0 [facility] StationBoajpdrLBCSECMVEA8361-95-08 10:35:00 Test Item Value Reference Range Interpretation Comments Hgb (test code = Hgb) 9.2 12.0-16.0 [facility] StationXpbkaknRDLXOVPXNX0828-04-07 10:35:00 Test Item Value Reference Range Interpretation Comments RBC (test code = RBC) 3.54 4.20-5.40 [facility] StationHpnevjaGQAORJUDJR4507-06-90 10:35:00 Test Item Value Reference Range Interpretation Comments WBC (test code = WBC) 5.3 3.7-10.4 [facility] StationLzmgiliBXQKMIJOEA9324-67-51 10:35:00 Test Item Value Reference Range Interpretation Comments Platelet (test code = Platelet) 87 133-450 [facility] StationYxjmkrqZYJIXYTJUQ3426-26-48 10:35:00 Test Item Value Reference Range Interpretation Comments MCHC (test code = MCHC) 31.4 32.0-36.0 [facility] StationCnyydxeZUPVYDORCC8912-93-94 10:35:00 Test Item Value Reference Range Interpretation Comments RDW (test code = RDW) 17.9 11.5-14.5 [facility] StationMurbcpqDUHAJUEHQU8216-97-06 10:35:00 Test Item Value Reference Range Interpretation Comments MPV (test code = MPV) 10.9 7.4-10.4 [facility] StationGpvytmxRWSCFSQJSM5726-35-59 10:35:00 Test Item Value Reference Range Interpretation Comments MCH (test code = MCH) 26.0 pg 27.0-31.0 [facility] StationJktvqqaSLEQEOQUIY2751-16-98 10:35:00 Test Item Value Reference Range Interpretation Comments MCV (test code = MCV) 82.8 80.0-98.0 [facility]burgOwwltzwRZJAYSQXPM5334-87-01 10:35:00 Test Item Value Reference Range Interpretation Comments HIV. (test code = Negative *NA*(07/28/16 HIV.) 4:35 AM) [facility] StationDtdrsusJWEYZOPHXT1688-09-59 10:35:00 Test Item Value Reference Range Interpretation Comments Lymphocytes # (test code = Lymphocytes 1.7 1.0-5.5 #) [facility] StationIfilglpJCKPXPETXX5232-95-29 10:35:00 Test Item Value Reference Range Interpretation Comments Segs-Bands # (test code = Segs-Bands #) 2.7 1.5-8.1 [facility] StationXxtznvzOXEAHSRYCS7389-87-53 10:35:00 Test Item Value Reference Range Interpretation Comments Eosinophils # (test code 0.1 See_Comment [A utomated message] The = Eosinophils #) system whic h generated this result tra nsmitted reference range : <=0.5. The reference r leo was not used to int erpret this result as normal/abnormal . [facility] StationAvuiygxHRCDRJSTBX9251-23-08 10:35:00 Test Item Value Reference Range Interpretation Comments Monocytes # (test code 0.7 See_Comment [Aut omated message] The = Monocytes #) system which generated this result tra nsmitted reference range : <=0.8. The reference r leo was not used to int erpret this result as normal/abnormal . [facility] StationIapczpzUNEIYBAPAY3914-08-53 10:35:00 Test Item Value Reference Range Interpretation Comments Segs (test code = Segs) 51.3 45.0-75.0 [facility] StationZbjuqiaMGOEJANIFY2544-28-82 10:35:00 Test Item Value Reference Range Interpretation Comments Lymphocytes (test code = Lymphocytes) 31.6 20.0-40.0 [facility] StationZuxqnicELPTDUAYJC2567-81-16 10:35:00 Test Item Value Reference Range Interpretation Comments Monocytes (test code = Monocytes) 14.1 2.0-12.0 [facility] StationYzbnaajQRSZOPXHSL9348-90-02 10:35:00 Test Item Value Reference Range Interpretation Comments Eosinophils (test code = 2.6 See_Comment [A utomated message] The Eosinophils) system which ge nerated this result tra nsmitted reference range : <=4.0. The reference r leo was not used to int erpret this result as normal/abnormal . [facility] StationLmvnpfiZHGUXGZRTF0357-98-89 10:35:00 Test Item Value Reference Range Interpretation Comments Basophils (test code = 0.4 See_Comment [Aut omated message] The Basophils) system which ge nerated this result tra nsmitted reference range : <=1.0. The reference r leo was not used to int erpret this result as normal/abnormal . [facility] StationGquksfgPUSKEEEDSD4438-34-85 10:35:00 Test Item Value Reference Range Interpretation Comments PB Smear Path Peripheral blood smear shows (test code = PB hypochromic normocytic Smear Path) anemia with anisopoikilocytsosis, no increase in schistocytes, slight polychromasia, a few estella cells, moderate thrombocytopenia. Impression: (1) no evidence of microangiopathic hemolysis, (2) RBC morphology is suggestive of anemia of chronic disease or iron deficiency anemia, and renal disease. CPT: 70297 [facility] StationSaffwhzTVBVXGKDLJ5189-88-60 10:35:00 Test Item Value Reference Range Interpretation Comments Hct (test code = Hct) 29.3 36.0-48.0 [facility] StationCfqvhzsBGYYPZZNTY6706-14-10 10:35:00 Test Item Value Reference Range Interpretation Comments Hgb (test code = Hgb) 9.2 12.0-16.0 [facility] StationZyyfploDVPNSFHHHV5473-56-70 10:35:00 Test Item Value Reference Range Interpretation Comments RBC (test code = RBC) 3.54 4.20-5.40 [facility] StationBgnaqanRVLOFXFEZD7887-23-45 10:35:00 Test Item Value Reference Range Interpretation Comments WBC (test code = WBC) 5.3 3.7-10.4 [facility] StationKolzqkgPZINXYFUNQ5574-31-93 10:35:00 Test Item Value Reference Range Interpretation Comments Platelet (test code = Platelet) 87 133-450 [facility] StationPtrtqeiMMXGYHWHOX8618-98-09 10:35:00 Test Item Value Reference Range Interpretation Comments MCHC (test code = MCHC) 31.4 32.0-36.0 [facility] StationEmiyagyTNSDYEHYBO8038-84-58 10:35:00 Test Item Value Reference Range Interpretation Comments RDW (test code = RDW) 17.9 11.5-14.5 [facility] StationShwzgouVSKYMPBKXC0595-77-58 10:35:00 Test Item Value Reference Range Interpretation Comments MPV (test code = MPV) 10.9 7.4-10.4 [facility] StationMzvkpubBWEVNLMUFN7805-60-93 10:35:00 Test Item Value Reference Range Interpretation Comments MCH (test code = MCH) 26.0 pg 27.0-31.0 [facility] StationTtvbjbkJIZYKBUOYD4557-93-51 10:35:00 Test Item Value Reference Range Interpretation Comments MCV (test code = MCV) 82.8 80.0-98.0 [facility]YyecjblEEWLWRFWIM4783-65-84 10:35:00 Test Item Value Reference Range Interpretation Comments HIV. (test code = Negative *NA*(07/28/16 HIV.) 4:35 AM) [facility] StationMzjurphMGYJJKBWUW1877-41-41 10:35:00 Test Item Value Reference Range Interpretation Comments Lymphocytes # (test code = Lymphocytes 1.7 1.0-5.5 #) [facility] StationMedbyccVHZVEFTQZB1621-80-21 10:35:00 Test Item Value Reference Range Interpretation Comments Segs-Bands # (test code = Segs-Bands #) 2.7 1.5-8.1 [facility] StationBslqqfeQXFPRXLCMJ8420-29-86 10:35:00 Test Item Value Reference Range Interpretation Comments Eosinophils # (test code 0.1 See_Comment [A utomated message] The = Eosinophils #) system whic h generated this result tra nsmitted reference range : <=0.5. The reference r leo was not used to int erpret this result as normal/abnormal . [facility] StationVoafxkoGZFWFYAICB8751-70-31 10:35:00 Test Item Value Reference Range Interpretation Comments Monocytes # (test code 0.7 See_Comment [Aut omated message] The = Monocytes #) system which generated this result tra nsmitted reference range : <=0.8. The reference r leo was not used to int erpret this result as normal/abnormal . [facility] StationEhlbvlvEUXIAJSNKE2727-34-15 10:35:00 Test Item Value Reference Range Interpretation Comments Segs (test code = Segs) 51.3 45.0-75.0 [facility] StationMqsihyhMVJSHKBUJS6590-15-96 10:35:00 Test Item Value Reference Range Interpretation Comments Lymphocytes (test code = Lymphocytes) 31.6 20.0-40.0 [facility] StationFxarxptFISZBDMIIE9061-17-41 10:35:00 Test Item Value Reference Range Interpretation Comments Monocytes (test code = Monocytes) 14.1 2.0-12.0 [facility] StationKjtaylhLCLOHLXHOC4416-19-58 10:35:00 Test Item Value Reference Range Interpretation Comments Eosinophils (test code = 2.6 See_Comment [A utomated message] The Eosinophils) system which ge nerated this result tra nsmitted reference range : <=4.0. The reference r leo was not used to int erpret this result as normal/abnormal . [facility] StationDozblqyJULBSSEQFK4167-22-82 10:35:00 Test Item Value Reference Range Interpretation Comments Basophils (test code = 0.4 See_Comment [Aut omated message] The Basophils) system which ge nerated this result tra nsmitted reference range : <=1.0. The reference r leo was not used to int erpret this result as normal/abnormal . [facility] StationTolynhpZXTFSVOXCV7707-63-52 10:35:00 Test Item Value Reference Range Interpretation Comments PB Smear Path Peripheral blood smear shows (test code = PB hypochromic normocytic Smear Path) anemia with anisopoikilocytsosis, no increase in schistocytes, slight polychromasia, a few estella cells, moderate thrombocytopenia. Impression: (1) no evidence of microangiopathic hemolysis, (2) RBC morphology is suggestive of anemia of chronic disease or iron deficiency anemia, and renal disease. CPT: 79438 [facility] StationNwpsavjQSNDWXCMGO3955-69-31 10:35:00 Test Item Value Reference Range Interpretation Comments Hct (test code = Hct) 29.3 36.0-48.0 [facility]landJihqrsvIHFNTQVLDA8267-87-64 10:35:00 Test Item Value Reference Range Interpretation Comments Hgb (test code = Hgb) 9.2 12.0-16.0 [facility]brbckcFUYXPYVHEO0414-62-42 10:35:00 Test Item Value Reference Range Interpretation Comments RBC (test code = RBC) 3.54 4.20-5.40 [facility]landDzvtflnACOVNCREJL2305-78-63 10:35:00 Test Item Value Reference Range Interpretation Comments WBC (test code = WBC) 5.3 3.7-10.4 [facility]landJxyedjeHFYMUGHYCJ0181-72-39 10:35:00 Test Item Value Reference Range Interpretation Comments Platelet (test code = Platelet) 87 133-450 [facility]landNgqibbvREHGBLKJVX4620-65-68 10:35:00 Test Item Value Reference Range Interpretation Comments MCHC (test code = MCHC) 31.4 32.0-36.0 [facility]landGspcpgsXFKNTLZVOB2240-34-41 10:35:00 Test Item Value Reference Range Interpretation Comments RDW (test code = RDW) 17.9 11.5-14.5 [facility]landUafgnwtPYYQSXSKCN0019-88-82 10:35:00 Test Item Value Reference Range Interpretation Comments MPV (test code = MPV) 10.9 7.4-10.4 [facility]landGdqeijwXWWUKUZFQW1720-44-83 10:35:00 Test Item Value Reference Range Interpretation Comments MCH (test code = MCH) 26.0 pg 27.0-31.0 [facility] PearlandWbuigwnWQQERUKYXP0250-07-16 10:35:00 Test Item Value Reference Range Interpretation Comments MCV (test code = MCV) 82.8 80.0-98.0 [facility]landKcmzswaCYUUEZIKIP0656-23-38 10:35:00 Test Item Value Reference Range Interpretation Comments HIV. (test code = Negative *NA*(07/28/16 HIV.) 4:35 AM) [facility]CARDIAC OTACILC5782-31-98 10:22:00 Test Item Value Reference Range Interpretation Comments Total CK (test code = Total CK) 190 12-191 [facility] PearlandannCHEM ESPIJ1339-05-90 10:22:00 Test Item Value Reference Range Interpretation Comments Calcium Lvl (test code = Calcium Lvl) 7.8 8.5-10.5 [facility]2017-02-06 10:22:00 Test Item Value Reference Range Interpretation Comments CO2 (test code = CO2) 21 24-32 [facility]2017-02-06 10:22:00 Test Item Value Reference Range Interpretation Comments Sodium Lvl (test code = Sodium Lvl) 140 135-145 [facility]2017-02-06 10:22:00 Test Item Value Reference Range Interpretation Comments Potassium Lvl (test code = Potassium 3.8 3.5-5.1 Lvl) [facility]2017-02-06 10:22:00 Test Item Value Reference Range Interpretation Comments Chloride Lvl (test code = Chloride Lvl) 106 95-109 [facility]2017-02-06 10:22:00 Test Item Value Reference Range Interpretation Comments Bili Total (test code = Bili Total) 0.4 0.2-1.3 [facility]2017-02-06 10:22:00 Test Item Value Reference Range Interpretation Comments Alk Phos (test code = Alk Phos) 74 39-136 [facility]2017-02-06 10:22:00 Test Item Value Reference Range Interpretation Comments eGFR (test code = eGFR) 19 [facility]2017-02-06 10:22:00 Test Item Value Reference Range Interpretation Comments Total Protein (test code = Total 5.2 6.4-8.4 Protein) [facility]2017-02-06 10:22:00 Test Item Value Reference Range Interpretation Comments ALT (test code = ALT) 822 See_Comment [Auto mated message] The system which ge nerated this result transmit rohit reference range : <=65. The reference range was not used to interpr et this result as reji l/abnormal. [facility]2017-02-06 10:22:00 Test Item Value Reference Range Interpretation Comments AST (test code = AST) 205 See_Comment [Auto mated message] The system which ge nerated this result transmit rohit reference range : <=37. The reference range was not used to interpr et this result as reji l/abnormal. [facility]2017-02-06 10:22:00 Test Item Value Reference Range Interpretation Comments Albumin Lvl (test code = Albumin Lvl) 1.8 3.5-5.0 [facility]2017-02-06 10:22:00 Test Item Value Reference Range Interpretation Comments BUN (test code = BUN) 54 7-22 [facility]2017-02-06 10:22:00 Test Item Value Reference Range Interpretation Comments Glucose Lvl (test code = Glucose Lvl) 143 70-99 [facility]2017-02-06 10:22:00 Test Item Value Reference Range Interpretation Comments Creatinine Lvl (test code = Creatinine 3.11 0.50-1.40 Lvl) [facility]2017-02-06 10:22:00 Test Item Value Reference Range Interpretation Comments B/C Ratio (test code = B/C Ratio) 17 6-25 [facility]2017-02-06 10:22:00 Test Item Value Reference Range Interpretation Comments AGAP (test code = AGAP) 16.8 10.0-20.0 [facility]2017-02-06 10:22:00 Test Item Value Reference Range Interpretation Comments Globulin (test code = Globulin) 3.4 2.7-4.2 [facility]2017-02-06 10:22:00 Test Item Value Reference Range Interpretation Comments A/G Ratio (test code = A/G Ratio) 0.5 0.7-1.6 [facility]2017-02-06 10:22:00 Test Item Value Reference Range Interpretation Comments Magnesium Lvl (test code = Magnesium 2.0 1.8-2.4 Lvl) [facility]2017-02-06 10:22:00 Test Item Value Reference Range Interpretation Comments Phosphorus (test code = Phosphorus) 3.7 2.5-4.5 [facility] StationSvzkutbIMCNCJVUHR9311-55-05 10:22:00 Test Item Value Reference Range Interpretation Comments RDW (test code = RDW) 17.7 11.5-14.5 [facility] StationSmumpsrURJLEEBTIM2337-35-64 10:22:00 Test Item Value Reference Range Interpretation Comments MCHC (test code = MCHC) 32.9 32.0-36.0 [facility] StationBuuwsqaOKAGLKRSFG2013-48-90 10:22:00 Test Item Value Reference Range Interpretation Comments Hct (test code = Hct) 25.4 36.0-48.0 [facility] StationBxjlegeHSJYEJLBAZ8279-00-97 10:22:00 Test Item Value Reference Range Interpretation Comments MCH (test code = MCH) 26.4 pg 27.0-31.0 [facility] StationJwyovcdQFLEXFQHMD4207-88-01 10:22:00 Test Item Value Reference Range Interpretation Comments MCV (test code = MCV) 80.3 80.0-98.0 [facility] StationDzfxkpgWCJFTKKHCO8585-86-70 10:22:00 Test Item Value Reference Range Interpretation Comments MPV (test code = MPV) 11.4 7.4-10.4 [facility] StationIsqnefyVDJVSURNQK9497-92-06 10:22:00 Test Item Value Reference Range Interpretation Comments Platelet (test code = Platelet) 74 133-450 [facility] StationPaounyqQVXJDIPWZU4784-14-42 10:22:00 Test Item Value Reference Range Interpretation Comments RBC (test code = RBC) 3.16 4.20-5.40 [facility] StationVhuctisHTMZMWHZVI5944-97-45 10:22:00 Test Item Value Reference Range Interpretation Comments WBC (test code = WBC) 5.3 3.7-10.4 [facility] StationHvmmgqnZXKPPXNRKN2187-66-89 10:22:00 Test Item Value Reference Range Interpretation Comments Hgb (test code = Hgb) 8.4 12.0-16.0 [facility] StationSvoqmpqKWKMVNFCCS8275-30-27 10:22:00 Test Item Value Reference Range Interpretation Comments Monocytes (test code = Monocytes) 14.5 2.0-12.0 [facility] StationHneyhbgTXZZVBFLTK7007-47-43 10:22:00 Test Item Value Reference Range Interpretation Comments Lymphocytes (test code = Lymphocytes) 29.8 20.0-40.0 [facility] StationHubantfCQNCGFVBNM3632-95-14 10:22:00 Test Item Value Reference Range Interpretation Comments Eosinophils # (test code 0.1 See_Comment [A utomated message] The = Eosinophils #) system whic h generated this result tra nsmitted reference range : <=0.5. The reference r leo was not used to int erpret this result as normal/abnormal . [facility] StationTqjchlgSJSRPXSOKE8030-56-68 10:22:00 Test Item Value Reference Range Interpretation Comments Monocytes # (test code 0.8 See_Comment [Aut omated message] The = Monocytes #) system which generated this result tra nsmitted reference range : <=0.8. The reference r leo was not used to int erpret this result as normal/abnormal . [facility]burgBoswtkdXFASJNLNGY2943-87-99 10:22:00 Test Item Value Reference Range Interpretation Comments Segs-Bands # (test code = Segs-Bands #) 2.9 1.5-8.1 [facility]burgJdtlgthWRSSJHNQGU9294-89-93 10:22:00 Test Item Value Reference Range Interpretation Comments Lymphocytes # (test code = Lymphocytes 1.6 1.0-5.5 #) [facility]burgWfxizzbHZDMZFTPDG7371-16-96 10:22:00 Test Item Value Reference Range Interpretation Comments Basophils (test code = 0.4 See_Comment [Aut omated message] The Basophils) system which ge nerated this result tra nsmitted reference range : <=1.0. The reference r leo was not used to int erpret this result as normal/abnormal . [facility]MzjficmYMPHXZLZMA0141-75-69 10:22:00 Test Item Value Reference Range Interpretation Comments Eosinophils (test code = 1.2 See_Comment [A utomated message] The Eosinophils) system which ge nerated this result tra nsmitted reference range : <=4.0. The reference r leo was not used to int erpret this result as normal/abnormal . [facility]burgHkjbfqsACKCWOBFTP9955-83-22 10:22:00 Test Item Value Reference Range Interpretation Comments Segs (test code = Segs) 54.1 45.0-75.0 [facility]burgSPECIAL QGEHQVMJA3467-92-52 10:22:00 Test Item Value Reference Range Interpretation Comments Hgb A1C (test code = Hgb A1C) 8.9 [facility]burgCARDIAC FAPFUBB4141-13-64 10:22:00 Test Item Value Reference Range Interpretation Comments Total CK (test code = Total CK) 190 12-191 [facility]annCHEM NVWOJ8112-34-11 10:22:00 Test Item Value Reference Range Interpretation Comments Calcium Lvl (test code = Calcium Lvl) 7.8 8.5-10.5 [facility]landannCHEM WILQQ0668-99-37 10:22:00 Test Item Value Reference Range Interpretation Comments CO2 (test code = CO2) 21 24-32 [facility]annCHEM MSOBS1838-04-72 10:22:00 Test Item Value Reference Range Interpretation Comments Sodium Lvl (test code = Sodium Lvl) 140 135-145 [facility]2017-02-06 10:22:00 Test Item Value Reference Range Interpretation Comments Potassium Lvl (test code = Potassium 3.8 3.5-5.1 Lvl) [facility]2017-02-06 10:22:00 Test Item Value Reference Range Interpretation Comments Chloride Lvl (test code = Chloride Lvl) 106 95-109 [facility]2017-02-06 10:22:00 Test Item Value Reference Range Interpretation Comments Bili Total (test code = Bili Total) 0.4 0.2-1.3 [facility]2017-02-06 10:22:00 Test Item Value Reference Range Interpretation Comments Alk Phos (test code = Alk Phos) 74 39-136 [facility]2017-02-06 10:22:00 Test Item Value Reference Range Interpretation Comments eGFR (test code = eGFR) 19 [facility]2017-02-06 10:22:00 Test Item Value Reference Range Interpretation Comments Total Protein (test code = Total 5.2 6.4-8.4 Protein) [facility]2017-02-06 10:22:00 Test Item Value Reference Range Interpretation Comments ALT (test code = ALT) 822 See_Comment [Auto mated message] The system which ge nerated this result transmit rohit reference range : <=65. The reference range was not used to interpr et this result as reji l/abnormal. [facility]2017-02-06 10:22:00 Test Item Value Reference Range Interpretation Comments AST (test code = AST) 205 See_Comment [Auto mated message] The system which ge nerated this result transmit rohit reference range : <=37. The reference range was not used to interpr et this result as reji l/abnormal. [facility]2017-02-06 10:22:00 Test Item Value Reference Range Interpretation Comments Albumin Lvl (test code = Albumin Lvl) 1.8 3.5-5.0 [facility]2017-02-06 10:22:00 Test Item Value Reference Range Interpretation Comments BUN (test code = BUN) 54 7-22 [facility]2017-02-06 10:22:00 Test Item Value Reference Range Interpretation Comments Glucose Lvl (test code = Glucose Lvl) 143 70-99 [facility]2017-02-06 10:22:00 Test Item Value Reference Range Interpretation Comments Creatinine Lvl (test code = Creatinine 3.11 0.50-1.40 Lvl) [facility]2017-02-06 10:22:00 Test Item Value Reference Range Interpretation Comments B/C Ratio (test code = B/C Ratio) 17 6-25 [facility]2017-02-06 10:22:00 Test Item Value Reference Range Interpretation Comments AGAP (test code = AGAP) 16.8 10.0-20.0 [facility]2017-02-06 10:22:00 Test Item Value Reference Range Interpretation Comments Globulin (test code = Globulin) 3.4 2.7-4.2 [facility]2017-02-06 10:22:00 Test Item Value Reference Range Interpretation Comments A/G Ratio (test code = A/G Ratio) 0.5 0.7-1.6 [facility]2017-02-06 10:22:00 Test Item Value Reference Range Interpretation Comments Magnesium Lvl (test code = Magnesium 2.0 1.8-2.4 Lvl) [facility]2017-02-06 10:22:00 Test Item Value Reference Range Interpretation Comments Phosphorus (test code = Phosphorus) 3.7 2.5-4.5 [facility] StationBzpghzoAOITBNKXXZ3200-20-77 10:22:00 Test Item Value Reference Range Interpretation Comments RDW (test code = RDW) 17.7 11.5-14.5 [facility] StationJzxktscCWFGVRTBPJ6788-90-27 10:22:00 Test Item Value Reference Range Interpretation Comments MCHC (test code = MCHC) 32.9 32.0-36.0 [facility] StationFwvpqwsLTCTCFDYMF7929-29-89 10:22:00 Test Item Value Reference Range Interpretation Comments Hct (test code = Hct) 25.4 36.0-48.0 [facility] StationShtoqipMLKOJCWXKU7061-20-98 10:22:00 Test Item Value Reference Range Interpretation Comments MCH (test code = MCH) 26.4 pg 27.0-31.0 [facility] StationNpybietEEKDEWVSVK5068-82-37 10:22:00 Test Item Value Reference Range Interpretation Comments MCV (test code = MCV) 80.3 80.0-98.0 [facility] StationDfzyvbmZZCWCXSTZL1009-01-51 10:22:00 Test Item Value Reference Range Interpretation Comments MPV (test code = MPV) 11.4 7.4-10.4 [facility] StationMhtluwbPQWMSNJOQA4830-33-43 10:22:00 Test Item Value Reference Range Interpretation Comments Platelet (test code = Platelet) 74 133-450 [facility] StationZgltwhmJXVJISWFKX3270-17-46 10:22:00 Test Item Value Reference Range Interpretation Comments RBC (test code = RBC) 3.16 4.20-5.40 [facility] StationGgyyfdhWAGDJCSATA0505-93-59 10:22:00 Test Item Value Reference Range Interpretation Comments WBC (test code = WBC) 5.3 3.7-10.4 [facility] StationYbrcndpJKONJJEZXF3607-19-06 10:22:00 Test Item Value Reference Range Interpretation Comments Hgb (test code = Hgb) 8.4 12.0-16.0 [facility] StationRpwxljpYULNIKNDKV2082-60-37 10:22:00 Test Item Value Reference Range Interpretation Comments Monocytes (test code = Monocytes) 14.5 2.0-12.0 [facility] StationGiffuenQAMYGSNXLR8346-61-76 10:22:00 Test Item Value Reference Range Interpretation Comments Lymphocytes (test code = Lymphocytes) 29.8 20.0-40.0 [facility] StationLrxdsiqRWFZHBITXU5289-65-36 10:22:00 Test Item Value Reference Range Interpretation Comments Eosinophils # (test code 0.1 See_Comment [A utomated message] The = Eosinophils #) system whic h generated this result tra nsmitted reference range : <=0.5. The reference r leo was not used to int erpret this result as normal/abnormal . [facility] StationUybpbjkTGSDQYBLAZ6475-98-12 10:22:00 Test Item Value Reference Range Interpretation Comments Monocytes # (test code 0.8 See_Comment [Aut omated message] The = Monocytes #) system which generated this result tra nsmitted reference range : <=0.8. The reference r leo was not used to int erpret this result as normal/abnormal . [facility] StationIvwslgsXPSNZPSLWZ8071-15-14 10:22:00 Test Item Value Reference Range Interpretation Comments Segs-Bands # (test code = Segs-Bands #) 2.9 1.5-8.1 [facility] [facility]OmkxgvsFQVKQVWPGU9352-75-91 10:22:00 Test Item Value Reference Range Interpretation Comments Lymphocytes # (test code = Lymphocytes 1.6 1.0-5.5 #) [facility]burgRrglxgkYDXKQLIAHG2068-85-65 10:22:00 Test Item Value Reference Range Interpretation Comments Basophils (test code = 0.4 See_Comment [Aut omated message] The Basophils) system which ge nerated this result tra nsmitted reference range : <=1.0. The reference r leo was not used to int erpret this result as normal/abnormal . [facility]burgTtkjpeeANXZFSORRB8991-38-29 10:22:00 Test Item Value Reference Range Interpretation Comments Eosinophils (test code = 1.2 See_Comment [A utomated message] The Eosinophils) system which ge nerated this result tra nsmitted reference range : <=4.0. The reference r leo was not used to int erpret this result as normal/abnormal . [facility]burgZojwtyfNWIDESWZFV5727-99-78 10:22:00 Test Item Value Reference Range Interpretation Comments Segs (test code = Segs) 54.1 45.0-75.0 [facility]SPECIAL [id number] 10:22:00 Test Item Value Reference Range Interpretation Comments Hgb A1C (test code = Hgb A1C) 8.9 [facility]CARDIAC [id number] 10:22:00 Test Item Value Reference Range Interpretation Comments Total CK (test code = Total CK) 190 12-191 [facility]Dis[facility] LabsCHEM [id number] 10:22:00 Test Item Value Reference Range Interpretation Comments Calcium Lvl (test code = Calcium Lvl) 7.8 8.5-10.5 [facility]landannCHEM [id number] 10:22:00 Test Item Value Reference Range Interpretation Comments CO2 (test code = CO2) 21 24-32 [facility]annCHEM [id number] 10:22:00 Test Item Value Reference Range Interpretation Comments Sodium Lvl (test code = Sodium Lvl) 140 135-145 [facility]annCHEM [id number] 10:22:00 Test Item Value Reference Range Interpretation Comments Potassium Lvl (test code = Potassium 3.8 3.5-5.1 Lvl) [facility]EC[facility] [id number] 10:22:00 Test Item Value Reference Range Interpretation Comments Chloride Lvl (test code = Chloride Lvl) 106 95-109 [facility]2017-02-06 10:22:00 Test Item Value Reference Range Interpretation Comments Bili Total (test code = Bili Total) 0.4 0.2-1.3 [facility]2017-02-06 10:22:00 Test Item Value Reference Range Interpretation Comments Alk Phos (test code = Alk Phos) 74 39-136 [facility]2017-02-06 10:22:00 Test Item Value Reference Range Interpretation Comments eGFR (test code = eGFR) 19 [facility]2017-02-06 10:22:00 Test Item Value Reference Range Interpretation Comments Total Protein (test code = Total 5.2 6.4-8.4 Protein) [facility]2017-02-06 10:22:00 Test Item Value Reference Range Interpretation Comments ALT (test code = ALT) 822 See_Comment [Auto mated message] The system which ge nerated this result transmit rohit reference range : <=65. The reference range was not used to interpr et this result as reji l/abnormal. [facility]2017-02-06 10:22:00 Test Item Value Reference Range Interpretation Comments AST (test code = AST) 205 See_Comment [Auto mated message] The system which ge nerated this result transmit rohit reference range : <=37. The reference range was not used to interpr et this result as reji l/abnormal. [facility]2017-02-06 10:22:00 Test Item Value Reference Range Interpretation Comments Albumin Lvl (test code = Albumin Lvl) 1.8 3.5-5.0 [facility]2017-02-06 10:22:00 Test Item Value Reference Range Interpretation Comments BUN (test code = BUN) 54 7-22 [facility]2017-02-06 10:22:00 Test Item Value Reference Range Interpretation Comments Glucose Lvl (test code = Glucose Lvl) 143 70-99 [facility]2017-02-06 10:22:00 Test Item Value Reference Range Interpretation Comments Creatinine Lvl (test code = Creatinine 3.11 0.50-1.40 Lvl) [facility]2017-02-06 10:22:00 Test Item Value Reference Range Interpretation Comments B/C Ratio (test code = B/C Ratio) 17 6-25 [facility]2017-02-06 10:22:00 Test Item Value Reference Range Interpretation Comments AGAP (test code = AGAP) 16.8 10.0-20.0 [facility]2017-02-06 10:22:00 Test Item Value Reference Range Interpretation Comments Globulin (test code = Globulin) 3.4 2.7-4.2 [facility]2017-02-06 10:22:00 Test Item Value Reference Range Interpretation Comments A/G Ratio (test code = A/G Ratio) 0.5 0.7-1.6 [facility]2017-02-06 10:22:00 Test Item Value Reference Range Interpretation Comments Magnesium Lvl (test code = Magnesium 2.0 1.8-2.4 Lvl) [facility]2017-02-06 10:22:00 Test Item Value Reference Range Interpretation Comments Phosphorus (test code = Phosphorus) 3.7 2.5-4.5 [facility] StationPughqbcONPSNMJBKM8406-88-10 10:22:00 Test Item Value Reference Range Interpretation Comments RDW (test code = RDW) 17.7 11.5-14.5 [facility] StationFjtjcilBVLIKNHNXV4416-06-73 10:22:00 Test Item Value Reference Range Interpretation Comments MCHC (test code = MCHC) 32.9 32.0-36.0 [facility] StationFmiydjuQJXYGYDUVY7768-09-12 10:22:00 Test Item Value Reference Range Interpretation Comments Hct (test code = Hct) 25.4 36.0-48.0 [facility] StationVsgjxreBLAOGZMXLZ7026-56-21 10:22:00 Test Item Value Reference Range Interpretation Comments MCH (test code = MCH) 26.4 pg 27.0-31.0 [facility] StationMmcbjogZUDTCOAKPB0714-22-65 10:22:00 Test Item Value Reference Range Interpretation Comments MCV (test code = MCV) 80.3 80.0-98.0 [facility] StationNolvflpJKTBREMDEP9150-88-11 10:22:00 Test Item Value Reference Range Interpretation Comments MPV (test code = MPV) 11.4 7.4-10.4 [facility] StationAkffavoKNTQGXVWTU0970-00-91 10:22:00 Test Item Value Reference Range Interpretation Comments Platelet (test code = Platelet) 74 133-450 [facility] StationRnystqcVXKXFMWWPA0220-81-33 10:22:00 Test Item Value Reference Range Interpretation Comments RBC (test code = RBC) 3.16 4.20-5.40 [facility] StationEwyshjzACASNITEIW2955-86-18 10:22:00 Test Item Value Reference Range Interpretation Comments WBC (test code = WBC) 5.3 3.7-10.4 [facility] StationTgdfhgzHXSCRWPMXB6130-15-85 10:22:00 Test Item Value Reference Range Interpretation Comments Hgb (test code = Hgb) 8.4 12.0-16.0 [facility] StationEjwtewlXBFYYHRLZE4173-41-55 10:22:00 Test Item Value Reference Range Interpretation Comments Monocytes (test code = Monocytes) 14.5 2.0-12.0 [facility] StationDpeoftnNKVLAHHRPY6913-84-14 10:22:00 Test Item Value Reference Range Interpretation Comments Lymphocytes (test code = Lymphocytes) 29.8 20.0-40.0 [facility] StationTpfwrfcQUVWMRAWOL6559-03-21 10:22:00 Test Item Value Reference Range Interpretation Comments Eosinophils # (test code 0.1 See_Comment [A utomated message] The = Eosinophils #) system whic h generated this result tra nsmitted reference range : <=0.5. The reference r leo was not used to int erpret this result as normal/abnormal . [facility] StationZpdcbtdZHQOSKJKXS0266-47-63 10:22:00 Test Item Value Reference Range Interpretation Comments Monocytes # (test code 0.8 See_Comment [Aut omated message] The = Monocytes #) system which generated this result tra nsmitted reference range : <=0.8. The reference r leo was not used to int erpret this result as normal/abnormal . [facility] StationJenoskoCKTNYVFOEN9788-01-13 10:22:00 Test Item Value Reference Range Interpretation Comments Segs-Bands # (test code = Segs-Bands #) 2.9 1.5-8.1 [facility] StationEowokixLDGSXBSWWM1494-21-05 10:22:00 Test Item Value Reference Range Interpretation Comments Lymphocytes # (test code = Lymphocytes 1.6 1.0-5.5 #) [facility] StationTulvzasUIMLLIVRZQ2072-99-31 10:22:00 Test Item Value Reference Range Interpretation Comments Basophils (test code = 0.4 See_Comment [Aut omated message] The Basophils) system which ge nerated this result tra nsmitted reference range : <=1.0. The reference r leo was not used to int erpret this result as normal/abnormal . [facility]ck[facility]VVROGR[facility]WRV2646[facility]-76 10:22:00 Test Item Value Reference Range Interpretation Comments Eosinophils (test code = 1.2 See_Comment [A utomated message] The Eosinophils) system which ge nerated this result tra nsmitted reference range : <=4.0. The reference r leo was not used to int erpret this result as normal/abnormal . [facility]burgJfsnybzEEWPRVAURN5247-90-61 10:22:00 Test Item Value Reference Range Interpretation Comments Segs (test code = Segs) 54.1 45.0-75.0 [facility]IAL SVSLSNSII1859-47-98 10:22:00 Test Item Value Reference Range Interpretation Comments Hgb A1C (test code = Hgb A1C) 8.9 [facility]CARDIAC [id number] 10:22:00 Test Item Value Reference Range Interpretation Comments Total CK (test code = Total CK) 190 12-191 [facility]Dis[facility] LabsCHEM [id number] 10:22:00 Test Item Value Reference Range Interpretation Comments Calcium Lvl (test code = Calcium Lvl) 7.8 8.5-10.5 [facility]landFyber [id number] 10:22:00 Test Item Value Reference Range Interpretation Comments CO2 (test code = CO2) 21 24-32 [facility] [id number] 10:22:00 Test Item Value Reference Range Interpretation Comments Sodium Lvl (test code = Sodium Lvl) 140 135-145 [facility] [id number] 10:22:00 Test Item Value Reference Range Interpretation Comments Potassium Lvl (test code = Potassium 3.8 3.5-5.1 Lvl) [facility] [id number] 10:22:00 Test Item Value Reference Range Interpretation Comments Chloride Lvl (test code = Chloride Lvl) 106 95-109 [facility] [id number] 10:22:00 Test Item Value Reference Range Interpretation Comments Bili Total (test code = Bili Total) 0.4 0.2-1.3 [facility]2017-02-06 10:22:00 Test Item Value Reference Range Interpretation Comments Alk Phos (test code = Alk Phos) 74 39-136 [facility]2017-02-06 10:22:00 Test Item Value Reference Range Interpretation Comments eGFR (test code = eGFR) 19 [facility]2017-02-06 10:22:00 Test Item Value Reference Range Interpretation Comments Total Protein (test code = Total 5.2 6.4-8.4 Protein) [facility]2017-02-06 10:22:00 Test Item Value Reference Range Interpretation Comments ALT (test code = ALT) 822 See_Comment [Auto mated message] The system which ge nerated this result transmit rohit reference range : <=65. The reference range was not used to interpr et this result as reji l/abnormal. [facility]2017-02-06 10:22:00 Test Item Value Reference Range Interpretation Comments AST (test code = AST) 205 See_Comment [Auto mated message] The system which ge nerated this result transmit rohti reference range : <=37. The reference range was not used to interpr et this result as reji l/abnormal. [facility]2017-02-06 10:22:00 Test Item Value Reference Range Interpretation Comments Albumin Lvl (test code = Albumin Lvl) 1.8 3.5-5.0 [facility]2017-02-06 10:22:00 Test Item Value Reference Range Interpretation Comments BUN (test code = BUN) 54 7-22 [facility]2017-02-06 10:22:00 Test Item Value Reference Range Interpretation Comments Glucose Lvl (test code = Glucose Lvl) 143 70-99 [facility]2017-02-06 10:22:00 Test Item Value Reference Range Interpretation Comments Creatinine Lvl (test code = Creatinine 3.11 0.50-1.40 Lvl) [facility]2017-02-06 10:22:00 Test Item Value Reference Range Interpretation Comments B/C Ratio (test code = B/C Ratio) 17 6-25 [facility]2017-02-06 10:22:00 Test Item Value Reference Range Interpretation Comments AGAP (test code = AGAP) 16.8 10.0-20.0 [facility]2017-02-06 10:22:00 Test Item Value Reference Range Interpretation Comments Globulin (test code = Globulin) 3.4 2.7-4.2 [facility]2017-02-06 10:22:00 Test Item Value Reference Range Interpretation Comments A/G Ratio (test code = A/G Ratio) 0.5 0.7-1.6 [facility]2017-02-06 10:22:00 Test Item Value Reference Range Interpretation Comments Magnesium Lvl (test code = Magnesium 2.0 1.8-2.4 Lvl) [facility]2017-02-06 10:22:00 Test Item Value Reference Range Interpretation Comments Phosphorus (test code = Phosphorus) 3.7 2.5-4.5 [facility] StationMybjmrjIZHOUFUHCA5103-19-02 10:22:00 Test Item Value Reference Range Interpretation Comments RDW (test code = RDW) 17.7 11.5-14.5 [facility] StationPlotlqhDVUJILOPDL2461-17-84 10:22:00 Test Item Value Reference Range Interpretation Comments MCHC (test code = MCHC) 32.9 32.0-36.0 [facility] StationPfzehqsOHVZTVLJDS4170-33-78 10:22:00 Test Item Value Reference Range Interpretation Comments Hct (test code = Hct) 25.4 36.0-48.0 [facility] StationHutznwoOUERTEVRGD0785-70-08 10:22:00 Test Item Value Reference Range Interpretation Comments MCH (test code = MCH) 26.4 pg 27.0-31.0 [facility] StationLeotndiBSBECJCLSY3065-39-17 10:22:00 Test Item Value Reference Range Interpretation Comments MCV (test code = MCV) 80.3 80.0-98.0 [facility] StationOajmrdrWZDCTMTOBE0131-60-34 10:22:00 Test Item Value Reference Range Interpretation Comments MPV (test code = MPV) 11.4 7.4-10.4 [facility] StationHxachhfFVIAPSOZNN1722-46-52 10:22:00 Test Item Value Reference Range Interpretation Comments Platelet (test code = Platelet) 74 133-450 [facility] StationXxqqqvfIRBXKFGXXR2558-96-97 10:22:00 Test Item Value Reference Range Interpretation Comments RBC (test code = RBC) 3.16 4.20-5.40 [facility] StationHurssnaJTEBIDLBTT0602-23-13 10:22:00 Test Item Value Reference Range Interpretation Comments WBC (test code = WBC) 5.3 3.7-10.4 [facility] StationVrdqhahBHOGUXUAFQ1354-34-79 10:22:00 Test Item Value Reference Range Interpretation Comments Hgb (test code = Hgb) 8.4 12.0-16.0 [facility] StationEdgrntaRKNQAVHFEK0723-86-23 10:22:00 Test Item Value Reference Range Interpretation Comments Monocytes (test code = Monocytes) 14.5 2.0-12.0 [facility] StationQtinincLNCJMIFRYJ4308-36-45 10:22:00 Test Item Value Reference Range Interpretation Comments Lymphocytes (test code = Lymphocytes) 29.8 20.0-40.0 [facility] StationGnubcjzHUTPPFXFKN4406-46-75 10:22:00 Test Item Value Reference Range Interpretation Comments Eosinophils # (test code 0.1 See_Comment [A utomated message] The = Eosinophils #) system [facility] h generated this result tra nsmitted reference range : <=0.5. The reference r leo was not used to int erpret this result as normal/abnormal . [facility] StationPychnkeQMSOTBCTCU7048-28-84 10:22:00 Test Item Value Reference Range Interpretation Comments Monocytes # (test code 0.8 See_Comment [Aut omated message] The = Monocytes #) system which generated this result tra nsmitted reference range : <=0.8. The reference r leo was not used to int erpret this result as normal/abnormal . [facility] StationDwaetppEYOGVLDZJZ0308-71-86 10:22:00 Test Item Value Reference Range Interpretation Comments Segs-Bands # (test code = Segs-Bands #) 2.9 1.5-8.1 [facility] StationAdebrurUNJMRJJUXT1531-86-08 10:22:00 Test Item Value Reference Range Interpretation Comments Lymphocytes # (test code = Lymphocytes 1.6 1.0-5.5 #) [facility] StationNtdsahiTXLOGXKVDB9804-83-40 10:22:00 Test Item Value Reference Range Interpretation Comments Basophils (test code = 0.4 See_Comment [Aut omated message] The Basophils) system which ge nerated this result tra nsmitted reference range : <=1.0. The reference r leo was not used to int erpret this result as normal/abnormal . [facility]burgLuctxphUWYQOQLHQW2187-62-65 10:22:00 Test Item Value Reference Range Interpretation Comments Eosinophils (test code = 1.2 See_Comment [A utomated message] The Eosinophils) system which ge nerated this result tra nsmitted reference range : <=4.0. The reference r leo was not used to int erpret this result as normal/abnormal . [facility]inburgSdwmqmsQWBJBCTMTC4606-06-89 10:22:00 Test Item Value Reference Range Interpretation Comments Segs (test code = Segs) 54.1 45.0-75.0 [facility]IAL JSHCSDTYH7572-35-57 10:22:00 Test Item Value Reference Range Interpretation Comments Hgb A1C (test code = Hgb A1C) 8.9 [facility]burgCARDIAC [id number] 10:22:00 Test Item Value Reference Range Interpretation Comments Total CK (test code = Total CK) 190 12-191 [facility]landFy[facility] CRPFX8431-81-42 10:22:00 Test Item Value Reference Range Interpretation Comments Calcium Lvl (test code = Calcium Lvl) 7.8 8.5-10.5 [facility] [id number] 10:22:00 Test Item Value Reference Range Interpretation Comments CO2 (test code = CO2) 21 24-32 [facility] [id number] 10:22:00 Test Item Value Reference Range Interpretation Comments Sodium Lvl (test code = Sodium Lvl) 140 135-145 [facility] GFVFG2430-05-13 10:22:00 Test Item Value Reference Range Interpretation Comments Potassium Lvl (test code = Potassium 3.8 3.5-5.1 Lvl) [facility] [id number] 10:22:00 Test Item Value Reference Range Interpretation Comments Chloride Lvl (test code = Chloride Lvl) 106 95-109 [facility] [id number] 10:22:00 Test Item Value Reference Range Interpretation Comments Bili Total (test code = Bili Total) 0.4 0.2-1.3 [facility] [id number] 10:22:00 Test Item Value Reference Range Interpretation Comments Alk Phos (test code = Alk Phos) 74 39-136 [facility] [id number] 10:22:00 Test Item Value Reference Range Interpretation Comments eGFR (test code = eGFR) 19 [facility]2017-02-06 10:22:00 Test Item Value Reference Range Interpretation Comments Total Protein (test code = Total 5.2 6.4-8.4 Protein) [facility]2017-02-06 10:22:00 Test Item Value Reference Range Interpretation Comments ALT (test code = ALT) 822 See_Comment [Auto mated message] The system which ge nerated this result transmit rohit reference range : <=65. The reference range was not used to interpr et this result as reji l/abnormal. [facility]2017-02-06 10:22:00 Test Item Value Reference Range Interpretation Comments AST (test code = AST) 205 See_Comment [Auto mated message] The system which ge nerated this result transmit rohit reference range : <=37. The reference range was not used to interpr et this result as reji l/abnormal. [facility]2017-02-06 10:22:00 Test Item Value Reference Range Interpretation Comments Albumin Lvl (test code = Albumin Lvl) 1.8 3.5-5.0 [facility]2017-02-06 10:22:00 Test Item Value Reference Range Interpretation Comments BUN (test code = BUN) 54 7-22 [facility]2017-02-06 10:22:00 Test Item Value Reference Range Interpretation Comments Glucose Lvl (test code = Glucose Lvl) 143 70-99 [facility]2017-02-06 10:22:00 Test Item Value Reference Range Interpretation Comments Creatinine Lvl (test code = Creatinine 3.11 0.50-1.40 Lvl) [facility]2017-02-06 10:22:00 Test Item Value Reference Range Interpretation Comments B/C Ratio (test code = B/C Ratio) 17 6-25 [facility]2017-02-06 10:22:00 Test Item Value Reference Range Interpretation Comments AGAP (test code = AGAP) 16.8 10.0-20.0 [facility]2017-02-06 10:22:00 Test Item Value Reference Range Interpretation Comments Globulin (test code = Globulin) 3.4 2.7-4.2 [facility]2017-02-06 10:22:00 Test Item Value Reference Range Interpretation Comments A/G Ratio (test code = A/G Ratio) 0.5 0.7-1.6 [facility]2017-02-06 10:22:00 Test Item Value Reference Range Interpretation Comments Magnesium Lvl (test code = Magnesium 2.0 1.8-2.4 Lvl) [facility]2017-02-06 10:22:00 Test Item Value Reference Range Interpretation Comments Phosphorus (test code = Phosphorus) 3.7 2.5-4.5 [facility] StationQgnegpbAVIEQGCTLB3420-27-38 10:22:00 Test Item Value Reference Range Interpretation Comments RDW (test code = RDW) 17.7 11.5-14.5 [facility] StationMpafrdyMHJCGKUDOH9874-74-77 10:22:00 Test Item Value Reference Range Interpretation Comments MCHC (test code = MCHC) 32.9 32.0-36.0 [facility] StationAwicwhjDLWOPWAOSH4527-21-71 10:22:00 Test Item Value Reference Range Interpretation Comments Hct (test code = Hct) 25.4 36.0-48.0 [facility] StationFpianurBFTGTWFHAV2873-83-31 10:22:00 Test Item Value Reference Range Interpretation Comments MCH (test code = MCH) 26.4 pg 27.0-31.0 [facility] StationYhdfsklPRAFGMFFAU9795-68-26 10:22:00 Test Item Value Reference Range Interpretation Comments MCV (test code = MCV) 80.3 80.0-98.0 [facility] StationRmsaemeLDKNTVTAZY2864-18-80 10:22:00 Test Item Value Reference Range Interpretation Comments MPV (test code = MPV) 11.4 7.4-10.4 [facility] StationDvnfcwlCPVCHGYBAL3824-20-37 10:22:00 Test Item Value Reference Range Interpretation Comments Platelet (test code = Platelet) 74 133-450 [facility] StationKfzjouxTSDPAWCZRH7729-63-51 10:22:00 Test Item Value Reference Range Interpretation Comments RBC (test code = RBC) 3.16 4.20-5.40 [facility] StationSrxidibXEJLMOAOSV7680-22-80 10:22:00 Test Item Value Reference Range Interpretation Comments WBC (test code = WBC) 5.3 3.7-10.4 [facility] StationWtrceaoIGTEENTMLH1556-24-26 10:22:00 Test Item Value Reference Range Interpretation Comments Hgb (test code = Hgb) 8.4 12.0-16.0 [facility] StationEiyfdriTWQDUCOUBM9378-16-55 10:22:00 Test Item Value Reference Range Interpretation Comments Monocytes (test code = Monocytes) 14.5 2.0-12.0 [facility] StationOgeqfikPQNVOAJLUE7262-66-62 10:22:00 Test Item Value Reference Range Interpretation Comments Lymphocytes (test code = Lymphocytes) 29.8 20.0-40.0 [facility] StationZqcauqsWWMWPECSPH1333-00-99 10:22:00 Test Item Value Reference Range Interpretation Comments Eosinophils # (test code 0.1 See_Comment [A utomated message] The = Eosinophils #) system whic h generated this result tra nsmitted reference range : <=0.5. The reference r leo was not used to int erpret this result as normal/abnormal . [facility] [facility] StationVwrmxccYMTDBYELEV7164-14-40 10:22:00 Test Item Value Reference Range Interpretation Comments Monocytes # (test code 0.8 See_Comment [Aut omated message] The = Monocytes #) system which generated this result tra nsmitted reference range : <=0.8. The reference r leo was not used to int erpret this result as normal/abnormal . [facility] StationMnecxodNWPJGIIBJJ2281-05-84 10:22:00 Test Item Value Reference Range Interpretation Comments Segs-Bands # (test code = Segs-Bands #) 2.9 1.5-8.1 [facility] StationOluocbvWQWZRYWHCK0402-29-45 10:22:00 Test Item Value Reference Range Interpretation Comments Lymphocytes # (test code = Lymphocytes 1.6 1.0-5.5 #) [facility] StationCeuyrfiYHOTAPWQUH6657-77-54 10:22:00 Test Item Value Reference Range Interpretation Comments Basophils (test code = 0.4 See_Comment [Aut omated message] The Basophils) system which ge nerated this result tra nsmitted reference range : <=1.0. The reference r leo was not used to int erpret this result as normal/abnormal . [facility] StationAwkiqerDKSWMAXMUF2501-81-18 10:22:00 Test Item Value Reference Range Interpretation Comments Eosinophils (test code = 1.2 See_Comment [A utomated message] The Eosinophils) system which ge nerated this result tra nsmitted reference range : <=4.0. The reference r leo was not used to int erpret this result as normal/abnormal . [facility]burgTwedpaxSXVJRHLPGT6815-54-05 10:22:00 Test Item Value Reference Range Interpretation Comments Segs (test code = Segs) 54.1 45.0-75.0 [facility]burgSPECIAL BMKLRDYGN9795-93-55 10:22:00 Test Item Value Reference Range Interpretation Comments Hgb A1C (test code = Hgb A1C) 8.9 [facility]annCARDIAC CRIBMKO8147-48-27 17:40:00 Test Item Value Reference Range Interpretation Comments Total CK (test code = Total CK) 344 12-191 [facility]landCupgyofSCEQFNOCLN8335-35-44 17:40:00 Test Item Value Reference Range Interpretation Comments IVETTE (test code = IVETTE) Positive *ABN*(07/26/16 11:40 AM) [facility]landCgsuvhnJNSSIEXRPN7009-18-26 17:40:00 Test Item Value Reference Range Interpretation Comments COUNTY SURVEYOR Ab (test code = COUNTY SURVEYOR Ab) no gt [facility]landTrwcocbBLZBUMVIKC4855-41-09 17:40:00 Test Item Value Reference Range Interpretation Comments Sm Ab (test code = Sm Ab) no gt [facility] EmrfbtsWYHVRXJYKC4538-92-93 17:40:00 Test Item Value Reference Range Interpretation Comments IVETTE Interp (test code Pattern appears = IVETTE Interp) Nucleolar. [facility] DvqleqpNJVUPAVAPN5351-13-92 17:40:00 Test Item Value Reference Range Interpretation Comments SS-B (La) Ab (test code = SS-B (La) Ab) no gt [facility] DgkjdxeQXWWBDCYTK5561-43-11 17:40:00 Test Item Value Reference Range Interpretation Comments SS-A (Ro) Ab (test code = SS-A (Ro) Ab) no gt [facility] YmtotumAFHOBTNZLR5681-65-77 17:40:00 Test Item Value Reference Range Interpretation Comments DNA Ab (DS) (test Negative (07/26/16 11:40 code = DNA Ab (DS)) AM) [facility]landPyecfdwEYRVXIWQNY7505-61-66 17:40:00 Test Item Value Reference Range Interpretation Comments IVETTE Titer (test code = 1:40 *ABN*(07/26/16 IVETTE Titer) 11:40 AM) [facility] [id number] 17:40:00 Test Item Value Reference Range Interpretation Comments U Sodium (test code = U Sodium) [facility] BMFGEWT1508-58-20 17:40:00 Test Item Value Reference Range Interpretation Comments Total CK (test code = Total CK) 344 [facility] IsixvcnNPGZAUERHV0935-05-99 17:40:00 Test Item Value Reference Range Interpretation Comments IVETTE (test code = IVETTE) Positive *ABN*(07/26/16 11:40 AM) [facility] CyxymkbDPIVXJOGUJ5999-60-24 17:40:00 Test Item Value Reference Range Interpretation Comments COUNTY SURVEYOR Ab (test code = COUNTY SURVEYOR Ab) no gt [facility] KhvjmsrKDADAGPMRI5923-47-06 17:40:00 Test Item Value Reference Range Interpretation Comments Sm Ab (test code = Sm Ab) no gt [facility] EkzsgagVJJLDRHMGK4862-60-55 17:40:00 Test Item Value Reference Range Interpretation Comments IVETTE Interp (test code Pattern appears = IVETTE Interp) Nucleolar. [facility] TusyxfzGWVQCQAKBP6230-45-76 17:40:00 Test Item Value Reference Range Interpretation Comments SS-B (La) Ab (test code = SS-B (La) Ab) no gt [facility] DcwooakMFPULJLOIP4283-05-49 17:40:00 Test Item Value Reference Range Interpretation Comments SS-A (Ro) Ab (test code = SS-A (Ro) Ab) no gt [facility] EvazvbdJHKLXLGFRT2184-96-86 17:40:00 Test Item Value Reference Range Interpretation Comments DNA Ab (DS) (test Negative (07/26/16 11:40 code = DNA Ab (DS)) AM) [facility] UvfpxtnVVDXJMRSRQ0973-30-94 17:40:00 Test Item Value Reference Range Interpretation Comments IVETTE Titer (test code = 1:40 *ABN*(07/26/16 IVETTE Titer) 11:40 AM) [facility]annURINE PXVR1462-12-64 17:40:00 Test Item Value Reference Range Interpretation Comments U Sodium (test code = U Sodium) 21 [facility]landannCARDIAC QMAMRRJ3893-99-45 17:40:00 Test Item Value Reference Range Interpretation Comments Total CK (test code = Total CK) 344 12 [facility] PearlandVqpfdmcHIPWLMOGKD3923-25-05 17:40:00 Test Item Value Reference Range Interpretation Comments IVETTE (test code = IVETTE) Positive *ABN*(2/5/17 11:40 AM) [facility] TlnzngxYYTPIBNWUV8404-14-22 17:40:00 Test Item Value Reference Range Interpretation Comments COUNTY SURVEYOR Ab (test code = COUNTY SURVEYOR Ab) no gt [facility] XacoygzSFRBSMLGFI7093-41-11 17:40:00 Test Item Value Reference Range Interpretation Comments Sm Ab (test code = Sm Ab) no gt [facility] ZbwnwvlYYOGMLSLGM5244-81-60 17:40:00 Test Item Value Reference Range Interpretation Comments IVETTE Interp (test code Pattern appears = IVETTE Interp) Nucleolar. [facility] ZxgunxeWWFRNBYWTX3939-00-68 17:40:00 Test Item Value Reference Range Interpretation Comments SS-B (La) Ab (test code = SS-B (La) Ab) no gt [facility] NoadrvsFBADEKHBRZ9037-70-55 17:40:00 Test Item Value Reference Range Interpretation Comments SS-A (Ro) Ab (test code = SS-A (Ro) Ab) no gt [facility] CegbglbIUCBQOIDIK5748-13-42 17:40:00 Test Item Value Reference Range Interpretation Comments DNA Ab (DS) (test Negative (07/26/16 11:40 code = DNA Ab (DS)) AM) [facility]landNvmyqttVHDHGTHSJL6559-67-56 17:40:00 Test Item Value Reference Range Interpretation Comments IVETTE Titer (test code = 1:40 *ABN*(07/26/16 IVETTE Titer) 11:40 AM) [facility]burgURINE [id number] 17:40:00 Test Item Value Reference Range Interpretation Comments U Sodium (test code = U Sodium) 21 [facility]annCARDIAC NFYIYOE2980-49-29 17:40:00 Test Item Value Reference Range Interpretation Comments Total CK (test code = Total CK) 344 12-191 [facility] PearlandRvnsimoSZKQLHQZPE7815-36-39 17:40:00 Test Item Value Reference Range Interpretation Comments IVETTE (test code = IVETTE) Positive *ABN*(07/26/16 11:40 AM) [facility] RzgqiadUETFAWKSPS0218-72-00 17:40:00 Test Item Value Reference Range Interpretation Comments COUNTY SURVEYOR Ab (test code = COUNTY SURVEYOR Ab) no gt [facility] WquotzzONLRNFOIHJ0579-46-28 17:40:00 Test Item Value Reference Range Interpretation Comments Sm Ab (test code = Sm Ab) no [facility] DrmhwoqRFZLRJPZGU1973-26-61 17:40:00 Test Item Value Reference Range Interpretation Comments IVETTE Interp (test code Pattern appears = IVETTE Interp) Nucleolar. [facility] HfykzofAQHVGZVZTS5384-40-37 17:40:00 Test Item Value Reference Range Interpretation Comments SS-B (La) Ab (test code = SS-B (La) Ab) no gt [facility] PearlandKverqydGROPZGGKDY4528-97-20 17:40:00 Test Item Value Reference Range Interpretation Comments SS-A (Ro) Ab (test code = SS-A (Ro) Ab) no gt [facility] JtkaaugQLFOBQTSOE6049-47-27 17:40:00 Test Item Value Reference Range Interpretation Comments DNA Ab (DS) (test Negative (07/26/16 11:40 code = DNA Ab (DS)) AM) [facility]landImivdjyXHVONVDYQJ8953-71-93 17:40:00 Test Item Value Reference Range Interpretation Comments IVETTE Titer (test code = 1:40 *ABN*(07/26/16 IVETTE Titer) 11:40 AM) [facility]annURINE IKAP9286-73-43 17:40:00 Test Item Value Reference Range Interpretation Comments U Sodium (test code = U Sodium) 21 [facility]landannCARDIAC [id number] 17:40:00 Test Item Value Reference Range Interpretation Comments Total CK (test code = Total CK) 344 12-191 [facility] PearlandSrzeengQSRVEXWPIZ8783-30-22 17:40:00 Test Item Value Reference Range Interpretation Comments IVETTE (test code = IVETTE) Positive *ABN*(07/26/16 11:40 AM) [facility] PearlandAkaulxeGVXXPHOQHH6427-55-59 17:40:00 Test Item Value Reference Range Interpretation Comments COUNTY SURVEYOR Ab (test code = COUNTY SURVEYOR Ab) no gt [facility] SgwpzidLWSPNAORHW9530-37-40 17:40:00 Test Item Value Reference Range Interpretation Comments Sm Ab (test code = Sm Ab) no gt [facility] QsolcxnCWSCVPBJJF5535-02-67 17:40:00 Test Item Value Reference Range Interpretation Comments IVETTE Interp (test code Pattern appears = IVETTE Interp) Nucleolar. [facility] PearlandXovsrrcFEFKDNENWK3696-47-94 17:40:00 Test Item Value Reference Range Interpretation Comments SS-B (La) Ab (test code = SS-B (La) Ab) no [facility]RmlcaobXBQISPDZVD4191-72-82 17:40:00 Test Item Value Reference Range Interpretation Comments SS-A (Ro) Ab (test code = SS-A (Ro) Ab) no gt [facility]burgJxavsrlUVLVSYMCVE7171-45-66 17:40:00 Test Item Value Reference Range Interpretation Comments DNA Ab (DS) (test Negative (07/26/16 11:40 code = DNA Ab (DS)) AM) [facility] TaylorHxtjgrvUECKIMLHUO8899-63-64 17:40:00 Test Item Value Reference Range Interpretation Comments IVETTE Titer (test code = 1:40 *ABN*(07/26/16 IVETET Titer) 11:40 AM) [facility]2017-02-05 17:40:00 Test Item Value Reference Range Interpretation Comments U Sodium (test code = U Sodium) [facility]YseozgrGHEHWWJRWS1341-83-70 14:00:00 Test Item Value Reference Range Interpretation Comments INR (test code = INR) 1.11 0.85-1.17 [facility] StationWcoitaeJBOZOBHOLZ2082-34-57 14:00:00 Test Item Value Reference Range Interpretation Comments PT (test code = PT) 14.5 s 12.0-14.7 [facility] TaylorMbedmjxMNURNQXEGV4068-00-99 14:00:00 Test Item Value Reference Range Interpretation Comments Hep A IgM (test code Negative *NA*(07/26/16 = Hep A IgM) 8:00 AM) [facility] TaylorIkfdvvsMMENKJXKQD6499-96-72 14:00:00 Test Item Value Reference Range Interpretation Comments Hep B Core IgM (test Negative *NA*(07/26/16 code = Hep B Core 8:00 AM) IgM) [facility] TaylorLclethpBAFKOUMBEN4726-94-89 14:00:00 Test Item Value Reference Range Interpretation Comments Hep C Ab (test code = Negative *NA*(07/26/16 Hep C Ab) 8:00 AM) [facility] TaylorYzttwppSMQKPUDAAU1363-55-29 14:00:00 Test Item Value Reference Range Interpretation Comments Hep Bs Ag (test code Negative *NA*(07/26/16 = Hep Bs Ag) 8:00 AM) [facility] StationNkvosatNISYMFGBAD3879-06-90 14:00:00 Test Item Value Reference Range Interpretation Comments INR (test code = INR) 1.11 0.85-1.17 [facility] StationQbdxjbpFSEIJXKPQW0777-77-85 14:00:00 Test Item Value Reference Range Interpretation Comments PT (test code = PT) 14.5 s 12.0-14.7 [facility] TaylorYufnyzcXTQMXJJWKH4758-58-02 14:00:00 Test Item Value Reference Range Interpretation Comments Hep A IgM (test code Negative *NA*(07/26/16 = Hep A IgM) 8:00 AM) [facility] TaylorMljmyqwLKRRAVVGVE1572-27-48 14:00:00 Test Item Value Reference Range Interpretation Comments Hep B Core IgM (test Negative *NA*(07/26/16 code = Hep B Core 8:00 AM) IgM) [facility] TaylorRzkxdysMPZSFVGOTB3118-25-98 14:00:00 Test Item Value Reference Range Interpretation Comments Hep C Ab (test code = Negative *NA*(07/26/16 Hep C Ab) 8:00 AM) [facility] TaylorHntlullUXXFENCHGJ9591-96-84 14:00:00 Test Item Value Reference Range Interpretation Comments Hep Bs Ag (test code Negative *NA*(07/26/16 = Hep Bs Ag) 8:00 AM) [facility] StationEyiljtoLFPHETIBZQ3713-60-24 14:00:00 Test Item Value Reference Range Interpretation Comments INR (test code = INR) 1.11 0.85-1.17 [facility] StationOzbjksjZKEXWASDDV5811-75-71 14:00:00 Test Item Value Reference Range Interpretation Comments PT (test code = PT) 14.5 s 12.0-14.7 [facility] TaylorTdxetfgVNNYPVFBTR8866-58-18 14:00:00 Test Item Value Reference Range Interpretation Comments Hep A IgM (test code Negative *NA*(07/26/16 = Hep A IgM) 8:00 AM) [facility] TaylorWntbssaAYMNPZJDCQ0765-53-77 14:00:00 Test Item Value Reference Range Interpretation Comments Hep B Core IgM (test Negative *NA*(07/26/16 code = Hep B Core 8:00 AM) IgM) [facility] TaylorEajimmiQMQGRYHCIN8125-11-25 14:00:00 Test Item Value Reference Range Interpretation Comments Hep C Ab (test code = Negative *NA*(07/26/16 Hep C Ab) 8:00 AM) [facility] TaylorWsscffcAHHSYZEKBC8774-94-84 14:00:00 Test Item Value Reference Range Interpretation Comments Hep Bs Ag (test code Negative *NA*(07/26/16 = Hep Bs Ag) 8:00 AM) [facility] StationOcjnbkoDTXCLQIHSH7648-04-88 14:00:00 Test Item Value Reference Range Interpretation Comments INR (test code = INR) 1.11 0.85-1.17 [facility] StationAamrsivSIYPGDWDOJ3601-63-95 14:00:00 Test Item Value Reference Range Interpretation Comments PT (test code = PT) 14.5 s 12.0-14.7 [facility] TaylorPxydywgZXYXCYRNGS0576-73-71 14:00:00 Test Item Value Reference Range Interpretation Comments Hep A IgM (test code Negative *NA*(07/26/16 = Hep A IgM) 8:00 AM) [facility] TaylorUfhlbtgRNXYLVNSJS0418-71-08 14:00:00 Test Item Value Reference Range Interpretation Comments Hep B Core IgM (test Negative *NA*(07/26/16 code = Hep B Core 8:00 AM) IgM) [facility] TaylorKfuhjdaQCKSIHFOHW2306-35-89 14:00:00 Test Item Value Reference Range Interpretation Comments Hep C Ab (test code = Negative *NA*(07/26/16 Hep C Ab) 8:00 AM) [facility] TaylorDgrpvhcDWAGOMSKZN2997-44-43 14:00:00 Test Item Value Reference Range Interpretation Comments Hep Bs Ag (test code Negative *NA*(07/26/16 = Hep Bs Ag) 8:00 AM) [facility] StationXlsdnvqXMXUCLOBSO6951-63-59 14:00:00 Test Item Value Reference Range Interpretation Comments INR (test code = INR) 1.11 0.85-1.17 [facility] StationZlarguuAWHICEELVU2866-47-17 14:00:00 Test Item Value Reference Range Interpretation Comments PT (test code = PT) 14.5 s 12.0-14.7 [facility] TaylorJjtwkfuXWNPVTYYNI6404-78-73 14:00:00 Test Item Value Reference Range Interpretation Comments Hep A IgM (test code Negative *NA*(07/26/16 = Hep A IgM) 8:00 AM) [facility] TaylorLnfawgoUFLRZMXNME2095-86-52 14:00:00 Test Item Value Reference Range Interpretation Comments Hep B Core IgM (test Negative *NA*(07/26/16 code = Hep B Core 8:00 AM) IgM) [facility] TaylorNcscdpdRCAIWGIKLX8219-96-20 14:00:00 Test Item Value Reference Range Interpretation Comments Hep C Ab (test code = Negative *NA*(07/26/16 Hep C Ab) 8:00 AM) [facility] TaylorOfpwgihLCHIYPUZIB0784-26-59 14:00:00 Test Item Value Reference Range Interpretation Comments Hep Bs Ag (test code Negative *NA*(07/26/16 = Hep Bs Ag) 8:00 AM) [facility]2017-02-05 10:42:00 Test Item Value Reference Range Interpretation Comments B/C Ratio (test code = B/C Ratio) 17 6-25 [facility]2017-02-05 10:42:00 Test Item Value Reference Range Interpretation Comments ALT (test code = ALT) 1232 See_Comment [Auto mated message] The system which ge nerated this result transmit rohit reference range : <=65. The reference range was not used to interpr et this result as reji l/abnormal. [facility]2017-02-05 10:42:00 Test Item Value Reference Range Interpretation Comments A/G Ratio (test code = A/G Ratio) 0.5 0.7-1.6 [facility]2017-02-05 10:42:00 Test Item Value Reference Range Interpretation Comments Bili Total (test code = Bili Total) 0.3 0.2-1.3 [facility]2017-02-05 10:42:00 Test Item Value Reference Range Interpretation Comments Alk Phos (test code = Alk Phos) 79 39-136 [facility]2017-02-05 10:42:00 Test Item Value Reference Range Interpretation Comments AST (test code = AST) 586 See_Comment [Auto mated message] The system which ge nerated this result transmit rohit reference range : <=37. The reference range was not used to interpr et this result as reji l/abnormal. [facility]2017-02-05 10:42:00 Test Item Value Reference Range Interpretation Comments Total Protein (test code = Total 5.5 6.4-8.4 Protein) [facility]2017-02-05 10:42:00 Test Item Value Reference Range Interpretation Comments Globulin (test code = Globulin) 3.7 2.7-4.2 [facility]2017-02-05 10:42:00 Test Item Value Reference Range Interpretation Comments Albumin Lvl (test code = Albumin Lvl) 1.8 3.5-5.0 [facility]2017-02-05 10:42:00 Test Item Value Reference Range Interpretation Comments Magnesium Lvl (test code = Magnesium 2.1 1.8-2.4 Lvl) [facility] StationSdnokreBGXLFGNRBW5976-70-41 10:42:00 Test Item Value Reference Range Interpretation Comments Acanthocyte (test code = Acanthocyte) Slight [facility] StationLidowhjMFTVJZSHZY5632-14-46 10:42:00 Test Item Value Reference Range Interpretation Comments Rouleaux (test code = Present *ABN*(07/26/16 Rouleaux) 4:42 AM) [facility] StationAintjmlYYYMMUYGLA7845-50-37 10:42:00 Test Item Value Reference Range Interpretation Comments Anisocyte (test code = 1+ *ABN*(07/26/16 4:42 Anisocyte) AM) [facility] StationBejnmtiOMJWYJWQZY4919-49-79 10:42:00 Test Item Value Reference Range Interpretation Comments Basophils # (test code 0.1 See_Comment [Aut omated message] The = Basophils #) system which generated this result tra nsmitted reference range : <=0.2. The reference r leo was not used to int erpret this result as normal/abnormal . [facility] StationQvrizmaGCZPHXGTII3603-79-72 10:42:00 Test Item Value Reference Range Interpretation Comments Large Plt (test code Moderate *ABN*(07/26/16 = Large Plt) 4:42 AM) [facility]burgCkpnbonYXTLBUMSUZ1502-01-52 10:42:00 Test Item Value Reference Range Interpretation Comments C4 Complement (test code = C4 42 16-47 Complement) [facility]2017-02-05 10:42:00 Test Item Value Reference Range Interpretation Comments B/C Ratio (test code = B/C Ratio) 17 6-25 [facility]2017-02-05 10:42:00 Test Item Value Reference Range Interpretation Comments ALT (test code = ALT) 1232 See_Comment [Auto mated message] The system which ge nerated this result transmit rohit reference range : <=65. The reference range was not used to interpr et this result as reji l/abnormal. [facility]2017-02-05 10:42:00 Test Item Value Reference Range Interpretation Comments A/G Ratio (test code = A/G Ratio) 0.5 0.7-1.6 [facility]2017-02-05 10:42:00 Test Item Value Reference Range Interpretation Comments Bili Total (test code = Bili Total) 0.3 0.2-1.3 [facility]2017-02-05 10:42:00 Test Item Value Reference Range Interpretation Comments Alk Phos (test code = Alk Phos) 79 39-136 [facility]2017-02-05 10:42:00 Test Item Value Reference Range Interpretation Comments AST (test code = AST) 586 See_Comment [Auto mated message] The system which ge nerated this result transmit rohit reference range : <=37. The reference range was not used to interpr et this result as reji l/abnormal. [facility]2017-02-05 10:42:00 Test Item Value Reference Range Interpretation Comments Total Protein (test code = Total 5.5 6.4-8.4 Protein) [facility]2017-02-05 10:42:00 Test Item Value Reference Range Interpretation Comments Globulin (test code = Globulin) 3.7 2.7-4.2 [facility]2017-02-05 10:42:00 Test Item Value Reference Range Interpretation Comments Albumin Lvl (test code = Albumin Lvl) 1.8 3.5-5.0 [facility]2017-02-05 10:42:00 Test Item Value Reference Range Interpretation Comments Magnesium Lvl (test code = Magnesium 2.1 1.8-2.4 Lvl) [facility] StationNabfjxyRZSBZJBSBT7938-23-71 10:42:00 Test Item Value Reference Range Interpretation Comments Acanthocyte (test code = Acanthocyte) Slight [facility] StationWdempzxKCXANYPEIV8816-98-82 10:42:00 Test Item Value Reference Range Interpretation Comments Rouleaux (test code = Present *ABN*(07/26/16 Rouleaux) 4:42 AM) [facility] StationWlywlokVOFHBFFVEE7964-50-49 10:42:00 Test Item Value Reference Range Interpretation Comments Anisocyte (test code = 1+ *ABN*(07/26/16 4:42 Anisocyte) AM) [facility] StationEtndfxdJYHEBWLXLJ8937-88-08 10:42:00 Test Item Value Reference Range Interpretation Comments Basophils # (test code 0.1 See_Comment [Aut omated message] The = Basophils #) system which generated this result tra nsmitted reference range : <=0.2. The reference r leo was not used to int erpret this result as normal/abnormal . [facility]burgYcsvqgdTUHOKWPJJK8957-56-91 10:42:00 Test Item Value Reference Range Interpretation Comments Large Plt (test code Moderate *ABN*(07/26/16 = Large Plt) 4:42 AM) [facility]inburgUnaenevBLVVAVMKYN7725-55-17 10:42:00 Test Item Value Reference Range Interpretation Comments C4 Complement (test code = C4 42 16-47 Complement) [facility]2017-02-05 10:42:00 Test Item Value Reference Range Interpretation Comments B/C Ratio (test code = B/C Ratio) 17 6-25 [facility]2017-02-05 10:42:00 Test Item Value Reference Range Interpretation Comments ALT (test code = ALT) 1232 See_Comment [Auto mated message] The system which ge nerated this result transmit rohit reference range : <=65. The reference range was not used to interpr et this result as reji l/abnormal. [facility]2017-02-05 10:42:00 Test Item Value Reference Range Interpretation Comments A/G Ratio (test code = A/G Ratio) 0.5 0.7-1.6 [facility]2017-02-05 10:42:00 Test Item Value Reference Range Interpretation Comments Bili Total (test code = Bili Total) 0.3 0.2-1.3 [facility]2017-02-05 10:42:00 Test Item Value Reference Range Interpretation Comments Alk Phos (test code = Alk Phos) 79 39-136 [facility]2017-02-05 10:42:00 Test Item Value Reference Range Interpretation Comments AST (test code = AST) 586 See_Comment [Auto mated message] The system which ge nerated this result transmit rohit reference range : <=37. The reference range was not used to interpr et this result as reji l/abnormal. [facility]2017-02-05 10:42:00 Test Item Value Reference Range Interpretation Comments Total Protein (test code = Total 5.5 6.4-8.4 Protein) [facility]2017-02-05 10:42:00 Test Item Value Reference Range Interpretation Comments Globulin (test code = Globulin) 3.7 2.7-4.2 [facility]2017-02-05 10:42:00 Test Item Value Reference Range Interpretation Comments Albumin Lvl (test code = Albumin Lvl) 1.8 3.5-5.0 [facility]2017-02-05 10:42:00 Test Item Value Reference Range Interpretation Comments Magnesium Lvl (test code = Magnesium 2.1 1.8-2.4 Lvl) [facility] [id number] 10:42:00 Test Item Value Reference Range Interpretation Comments Acanthocyte (test code = Acanthocyte) Slight [facility] StationCljzndeOCZFEGMMEB0649-81-84 10:42:00 Test Item Value Reference Range Interpretation Comments Rouleaux (test code = Present *ABN*(07/26/16 Rouleaux) 4:42 AM) [facility] StationOhqvywfRBJOOOMZGK8105-49-04 10:42:00 Test Item Value Reference Range Interpretation Comments Anisocyte (test code = 1+ *ABN*(07/26/16 4:42 Anisocyte) AM) [facility] [id number] 10:42:00 Test Item Value Reference Range Interpretation Comments Basophils # (test code 0.1 See_Comment [Aut omated message] The = Basophils #) system which generated this result tra nsmitted reference range : <=0.2. The reference r leo was not used to int erpret this result as normal/abnormal . [facility] St[id number] 10:42:00 Test Item Value Reference Range Interpretation Comments Large Plt (test code Moderate *ABN*(07/26/16 = Large Plt) 4:42 AM) [id number] 10:42:00 Test Item Value Reference Range Interpretation Comments C4 Complement (test code = C4 42 16-47 Complement) [facility]2017-02-05 10:42:00 Test Item Value Reference Range Interpretation Comments B/C Ratio (test code = B/C Ratio) 17 6-25 [facility]2017-02-05 10:42:00 Test Item Value Reference Range Interpretation Comments ALT (test code = ALT) 1232 See_Comment [Auto mated message] The system which ge nerated this result transmit rohit reference range : <=65. The reference range was not used to interpr et this result as reji l/abnormal. [facility]2017-02-05 10:42:00 Test Item Value Reference Range Interpretation Comments A/G Ratio (test code = A/G Ratio) 0.5 0.7-1.6 [facility]2017-02-05 10:42:00 Test Item Value Reference Range Interpretation Comments Bili Total (test code = Bili Total) 0.3 0.2-1.3 [facility]2017-02-05 10:42:00 Test Item Value Reference Range Interpretation Comments Alk Phos (test code = Alk Phos) 79 39-136 [facility]2017-02-05 10:42:00 Test Item Value Reference Range Interpretation Comments AST (test code = AST) 586 See_Comment [Auto mated message] The system which ge nerated this result transmit rohit reference range : <=37. The reference range was not used to interpr et this result as reji l/abnormal. [facility]2017-02-05 10:42:00 Test Item Value Reference Range Interpretation Comments Total Protein (test code = Total 5.5 6.4-8.4 Protein) [facility]2017-02-05 10:42:00 Test Item Value Reference Range Interpretation Comments Globulin (test code = Globulin) 3.7 2.7-4.2 [facility]2017-02-05 10:42:00 Test Item Value Reference Range Interpretation Comments Albumin Lvl (test code = Albumin Lvl) 1.8 3.5-5.0 [facility]2017-02-05 10:42:00 Test Item Value Reference Range Interpretation Comments Magnesium Lvl (test code = Magnesium 2.1 1.8-2.4 Lvl) [facility] [id number] 10:42:00 Test Item Value Reference Range Interpretation Comments Acanthocyte (test code = Acanthocyte) Slight [facility] StationHmyfelwXVNNVCMZPU5587-23-21 10:42:00 Test Item Value Reference Range Interpretation Comments Rouleaux (test code = Present *ABN*(07/26/16 Rouleaux) 4:42 AM) [facility] StationHtsqljgZVPMMMKIKP5995-51-21 10:42:00 Test Item Value Reference Range Interpretation Comments Anisocyte (test code = 1+ *ABN*(07/26/16 4:42 Anisocyte) AM) [facility] StationMaxpmjtIKHTQXBHRW6955-15-82 10:42:00 Test Item Value Reference Range Interpretation Comments Basophils # (test code 0.1 See_Comment [Aut omated message] The = Basophils #) system which generated this result tra nsmitted reference range : <=0.2. The reference r leo was not used to int erpret this result as normal/abnormal . [facility] StationZsnlvuaHSEGVRZRYH8723-77-71 10:42:00 Test Item Value Reference Range Interpretation Comments Large Plt (test code Moderate *ABN*(07/26/16 = Large Plt) 4:42 AM) [facility]burgWvwqkvzPKUYUQSMUD1666-15-49 10:42:00 Test Item Value Reference Range Interpretation Comments C4 Complement (test code = C4 42 16-47 Complement) [facility]2017-02-05 10:42:00 Test Item Value Reference Range Interpretation Comments B/C Ratio (test code = B/C Ratio) 17 6-25 [facility]2017-02-05 10:42:00 Test Item Value Reference Range Interpretation Comments ALT (test code = ALT) 1232 See_Comment [Auto mated message] The system which ge nerated this result transmit rohit reference range : <=65. The reference range was not used to interpr et this result as reji l/abnormal. [facility]2017-02-05 10:42:00 Test Item Value Reference Range Interpretation Comments A/G Ratio (test code = A/G Ratio) 0.5 0.7-1.6 [facility]2017-02-05 10:42:00 Test Item Value Reference Range Interpretation Comments Bili Total (test code = Bili Total) 0.3 0.2-1.3 [facility]2017-02-05 10:42:00 Test Item Value Reference Range Interpretation Comments Alk Phos (test code = Alk Phos) 79 39-136 [facility]2017-02-05 10:42:00 Test Item Value Reference Range Interpretation Comments AST (test code = AST) 586 See_Comment [Auto mated message] The system which ge nerated this result transmit rohit reference range : <=37. The reference range was not used to interpr et this result as erji l/abnormal. [facility]2017-02-05 10:42:00 Test Item Value Reference Range Interpretation Comments Total Protein (test code = Total 5.5 6.4-8.4 Protein) [facility]2017-02-05 10:42:00 Test Item Value Reference Range Interpretation Comments Globulin (test code = Globulin) 3.7 2.7-4.2 [facility]2017-02-05 10:42:00 Test Item Value Reference Range Interpretation Comments Albumin Lvl (test code = Albumin Lvl) 1.8 3.5-5.0 [facility] [id number] 10:42:00 Test Item Value Reference Range Interpretation Comments Magnesium Lvl (test code = Magnesium 2.1 1.8-2.4 Lvl) [facility] StationGvfjkfqHAXAFPREEZ1554-72-23 10:42:00 Test Item Value Reference Range Interpretation Comments Acanthocyte (test code = Acanthocyte) Slight [facility] [id number] 10:42:00 Test Item Value Reference Range Interpretation Comments Rouleaux (test code = Present *ABN*(07/26/16 Rouleaux) 4:42 AM) [facility]burgCehlnghBYYWAYAWVR0050-36-97 10:42:00 Test Item Value Reference Range Interpretation Comments Anisocyte (test code = 1+ *ABN*(07/26/16 4:42 Anisocyte) AM) [facility] StationCrqicqiVTUCMBXOID8739-08-36 10:42:00 Test Item Value Reference Range Interpretation Comments Basophils # (test code 0.1 See_Comment [Aut omated message] The = Basophils #) system which generated this result tra nsmitted reference range : <=0.2. The reference r leo was not used to int erpret this result as normal/abnormal . [facility]i[id number] 10:42:00 Test Item Value Reference Range Interpretation Comments Large Plt (test code Moderate *ABN*(07/26/16 = Large Plt) 4:42 AM) [facility]burgXikoywkVEXRSOHTLX4279-14-72 10:42:00 Test Item Value Reference Range Interpretation Comments C4 Complement (test code = C4 42 16-47 Complement) [facility] AND [id number] 16:34:00 Test Item Value Reference Range Interpretation Comments UA Sq Epi (test code = UA Sq Epi) None Seen [facility] AND [id number] 16:34:00 Test Item Value Reference Range Interpretation Comments UA Waxy Cast (test code = UA Waxy Cast) 1 [facility] AND [id number] 16:34:00 Test Item Value Reference Range Interpretation Comments UA Hyal Cast (test 4 See_Comment [Automat ed message] The code = UA Hyal Cast) system which generated this result transmit rohit reference range : <=2. The reference range was not used to interpr et this result as reji l/abnormal. [facility] AND [id number] 16:34:00 Test Item Value Reference Range Interpretation Comments UA Bacteria (test code = UA Occasional /HPF Bacteria) [facility] AND [id number] 16:34:00 Test Item Value Reference Range Interpretation Comments UA Mucus (test code = UA Mucus) Few /LPF [facility] AND [id number] 16:34:00 Test Item Value Reference Range Interpretation Comments UA Amorph Destiny (test code = Occasional /HPF UA Amorph Destiny) [facility] AND [id number] 16:34:00 Test Item Value Reference Range Interpretation Comments UA Leuk Est (test Negative (07/25/16 10:34 code = UA Leuk Est) AM) [facility] AND [id number] 16:34:00 Test Item Value Reference Range Interpretation Comments UA Nitrite (test code Negative (07/25/16 10:34 = UA Nitrite) AM) [facility] AND [id number] 16:34:00 Test Item Value Reference Range Interpretation Comments UA RBC (test code = 2 See_Comment [Automa rohit message] The UA RBC) system which ge nerated this result transmit rohit reference range : <=2. The reference range was not used to interpr et this result as reji l/abnormal. [facility] AND [id number] 16:34:00 Test Item Value Reference Range Interpretation Comments UA WBC (test code = 6 See_Comment [Automa rohit message] The UA WBC) system which ge nerated this result transmit rohit reference range : <=5. The reference range was not used to interpr et this result as reji l/abnormal. [facility] AND [id number] 16:34:00 Test Item Value Reference Range Interpretation Comments UA Urobilinogen (test code = UA 2.0 0.1-1.0 Urobilinogen) [facility] AND [id number] 16:34:00 Test Item Value Reference Range Interpretation Comments UA Ketones (test code = UA Negative mg/dL Ketones) [facility] AND [id number] 16:34:00 Test Item Value Reference Range Interpretation Comments UA Glucose (test code = UA Glucose) 70 mg/dL [facility] AND [id number] 16:34:00 Test Item Value Reference Range Interpretation Comments UA Blood (test code = Negative (07/25/16 10:34 UA Blood) AM) [facility] AND [id number] 16:34:00 Test Item Value Reference Range Interpretation Comments UA Bili (test code = Negative *NA*(07/25/16 UA Bili) 10:34 AM) [facility] AND [id number] 16:34:00 Test Item Value Reference Range Interpretation Comments UA Protein (test code = UA >=300 mg/dL Protein) [facility] AND [id number] 16:34:00 Test Item Value Reference Range Interpretation Comments UA Spec Grav (test code = UA Spec Grav) 1.012 [facility] AND [id number] 16:34:00 Test Item Value Reference Range Interpretation Comments UA pH (test code = UA pH) 5.5 5.0-8.0 [facility] AND [id number] 16:34:00 Test Item Value Reference Range Interpretation Comments UA Turbidity (test code Slight *ABN*(07/25/16 = UA Turbidity) 10:34 AM) [facility] AND [id number] 16:34:00 Test Item Value Reference Range Interpretation Comments UA Color (test code = Dark Yellow *NA*(07/25/16 UA Color) 10:34 AM) [facility] AND [id number] 16:34:00 Test Item Value Reference Range Interpretation Comments UA Gran Cast (test code = UA Gran Cast) 9 [facility]2017-02-04 16:34:00 Test Item Value Reference Range Interpretation Comments U Sodium (test code = U Sodium) 30 [facility]2017-02-04 16:34:00 Test Item Value Reference Range Interpretation Comments U Prot/Creat (test code = U Prot/Creat) 3.1 [facility] [id number] 16:34:00 Test Item Value Reference Range Interpretation Comments U Protein (test code = U Protein) 420.9 [facility] [id number] 16:34:00 Test Item Value Reference Range Interpretation Comments U Creatinine (test code = U 136.00 Creatinine) [facility] AND [id number] 16:34:00 Test Item Value Reference Range Interpretation Comments UA Sq Epi (test code = UA Sq Epi) None Seen [facility] AND [id number] 16:34:00 Test Item Value Reference Range Interpretation Comments UA Waxy Cast (test code = UA Waxy Cast) 1 [facility] AND [id number] 16:34:00 Test Item Value Reference Range Interpretation Comments UA Hyal Cast (test 4 See_Comment [Automat ed message] The code = UA Hyal Cast) system which generated this result transmit rohit reference range : <=2. The reference range was not used to interpr et this result as reji l/abnormal. [facility] AND [id number] 16:34:00 Test Item Value Reference Range Interpretation Comments UA Bacteria (test code = UA Occasional /HPF Bacteria) [facility] AND [id number] 16:34:00 Test Item Value Reference Range Interpretation Comments UA Mucus (test code = UA Mucus) Few /LPF [facility] AND [id number] 16:34:00 Test Item Value Reference Range Interpretation Comments UA Amorph Destiny (test code = Occasional /HPF UA Amorph Destiny) [facility] AND [id number] 16:34:00 Test Item Value Reference Range Interpretation Comments UA Leuk Est (test Negative (07/25/16 10:34 code = UA Leuk Est) AM) [facility] AND [id number] 16:34:00 Test Item Value Reference Range Interpretation Comments UA Nitrite (test code Negative (07/25/16 10:34 = UA Nitrite) AM) [facility] AND [id number] 16:34:00 Test Item Value Reference Range Interpretation Comments UA RBC (test code = 2 See_Comment [Automa rohit message] The UA RBC) system which ge nerated this result transmit rohit reference range : <=2. The reference range was not used to interpr et this result as reji l/abnormal. [facility] AND [id number] 16:34:00 Test Item Value Reference Range Interpretation Comments UA WBC (test code = 6 See_Comment [Automa rohit message] The UA WBC) system which ge nerated this result transmit rohit reference range : <=5. The reference range was not used to interpr et this result as reji l/abnormal. [facility] AND [id number] 16:34:00 Test Item Value Reference Range Interpretation Comments UA Urobilinogen (test code = UA 2.0 0.1-1.0 Urobilinogen) [facility] AND [id number] 16:34:00 Test Item Value Reference Range Interpretation Comments UA Ketones (test code = UA Negative mg/dL Ketones) [facility] AND [id number] 16:34:00 Test Item Value Reference Range Interpretation Comments UA Glucose (test code = UA Glucose) 70 mg/dL [facility] AND [id number] 16:34:00 Test Item Value Reference Range Interpretation Comments UA Blood (test code = Negative (07/25/16 10:34 UA Blood) AM) [facility] AND [id number] 16:34:00 Test Item Value Reference Range Interpretation Comments UA Bili (test code = Negative *NA*(07/25/16 UA Bili) 10:34 AM) [facility] AND [id number] 16:34:00 Test Item Value Reference Range Interpretation Comments UA Protein (test code = UA >=300 mg/dL Protein) [facility] AND [id number] 16:34:00 Test Item Value Reference Range Interpretation Comments UA Spec Grav (test code = UA Spec Grav) 1.012 [facility] AND [id number] 16:34:00 Test Item Value Reference Range Interpretation Comments UA pH (test code = UA pH) 5.5 5.0-8.0 [facility] AND [id number] 16:34:00 Test Item Value Reference Range Interpretation Comments UA Turbidity (test code Slight *ABN*(07/25/16 = UA Turbidity) 10:34 AM) [facility] AND [id number] 16:34:00 Test Item Value Reference Range Interpretation Comments UA Color (test code = Dark Yellow *NA*(07/25/16 UA Color) 10:34 AM) [facility] [id number] 16:34:00 Test Item Value Reference Range Interpretation Comments UA Gran Cast (test code = UA Gran Cast) 9 [facility] [id number] 16:34:00 Test Item Value Reference Range Interpretation Comments U Sodium (test code = U Sodium) 30 [facility] [id number] 16:34:00 Test Item Value Reference Range Interpretation Comments U Prot/Creat (test code = U Prot/Creat) 3.1 [facility] [id number] 16:34:00 Test Item Value Reference Range Interpretation Comments U Protein (test code = U Protein) 420.9 [facility] [id number] 16:34:00 Test Item Value Reference Range Interpretation Comments U Creatinine (test code = U 136.00 Creatinine) [facility] AND [id number] 16:34:00 Test Item Value Reference Range Interpretation Comments UA Sq Epi (test code = UA Sq Epi) None Seen [facility] AND [id number] 16:34:00 Test Item Value Reference Range Interpretation Comments UA Waxy Cast (test code = UA Waxy Cast) 1 [facility] AND [id number] 16:34:00 Test Item Value Reference Range Interpretation Comments UA Hyal Cast (test 4 See_Comment [Automat ed message] The code = UA Hyal Cast) system which generated this result transmit rohit reference range : <=2. The reference range was not used to interpr et this result as reji l/abnormal. [facility] [id number] 16:34:00 Test Item Value Reference Range Interpretation Comments UA Bacteria (test code = UA Occasional /HPF Bacteria) [facility] [id number] 16:34:00 Test Item Value Reference Range Interpretation Comments UA Mucus (test code = UA Mucus) Few /LPF [facility] [id number] 16:34:00 Test Item Value Reference Range Interpretation Comments UA Amorph Destiny (test code = Occasional /HPF UA Amorph Destiny) [facility] AND [id number] 16:34:00 Test Item Value Reference Range Interpretation Comments UA Leuk Est (test Negative (07/25/16 10:34 code = UA Leuk Est) AM) [facility] AND [id number] 16:34:00 Test Item Value Reference Range Interpretation Comments UA Nitrite (test code Negative (07/25/16 10:34 = UA Nitrite) AM) [facility] AND [id number] 16:34:00 Test Item Value Reference Range Interpretation Comments UA RBC (test code = 2 See_Comment [Automa rohit message] The UA RBC) system which ge nerated this result transmit rohit reference range : <=2. The reference range was not used to interpr et this result as reji l/abnormal. [facility] AND [id number] 16:34:00 Test Item Value Reference Range Interpretation Comments UA WBC (test code = 6 See_Comment [Automa rohit message] The UA WBC) system which ge nerated this result transmit rohit reference range : <=5. The reference range was not used to interpr et this result as reji l/abnormal. [facility] AND [id number] 16:34:00 Test Item Value Reference Range Interpretation Comments UA Urobilinogen (test code = UA 2.0 0.1-1.0 Urobilinogen) [facility] AND [id number] 16:34:00 Test Item Value Reference Range Interpretation Comments UA Ketones (test code = UA Negative mg/dL Ketones) [facility] AND [id number] 16:34:00 Test Item Value Reference Range Interpretation Comments UA Glucose (test code = UA Glucose) 70 mg/dL [facility] AND [id number] 16:34:00 Test Item Value Reference Range Interpretation Comments UA Blood (test code = Negative (07/25/16 10:34 UA Blood) AM) [facility] AND [id number] 16:34:00 Test Item Value Reference Range Interpretation Comments UA Bili (test code = Negative *NA*(07/25/16 UA Bili) 10:34 AM) [facility] AND [id number] 16:34:00 Test Item Value Reference Range Interpretation Comments UA Protein (test code = UA >=300 mg/dL Protein) [facility] AND [id number] 16:34:00 Test Item Value Reference Range Interpretation Comments UA Spec Grav (test code = UA Spec Grav) 1.012 [facility] AND [id number] 16:34:00 Test Item Value Reference Range Interpretation Comments UA pH (test code = UA pH) 5.5 5.0-8.0 [facility] AND [id number] 16:34:00 Test Item Value Reference Range Interpretation Comments UA Turbidity (test code Slight *ABN*(07/25/16 = UA Turbidity) 10:34 AM) [facility] AND [id number] 16:34:00 Test Item Value Reference Range Interpretation Comments UA Color (test code = Dark Yellow *NA*(07/25/16 UA Color) 10:34 AM) [facility] AND [id number] 16:34:00 Test Item Value Reference Range Interpretation Comments UA Gran Cast (test code = UA Gran Cast) 9 [facility] [id number] 16:34:00 Test Item Value Reference Range Interpretation Comments U Sodium (test code = U Sodium) 30 [facility] [id number] 16:34:00 Test Item Value Reference Range Interpretation Comments U Prot/Creat (test code = U Prot/Creat) 3.1 [facility]2017-02-04 16:34:00 Test Item Value Reference Range Interpretation Comments U Protein (test code = U Protein) 420.9 [facility]2017-02-04 16:34:00 Test Item Value Reference Range Interpretation Comments U Creatinine (test code = U 136.00 Creatinine) [facility] AND [id number] 16:34:00 Test Item Value Reference Range Interpretation Comments UA Sq Epi (test code = UA Sq Epi) None Seen [facility] AND [id number] 16:34:00 Test Item Value Reference Range Interpretation Comments UA Waxy Cast (test code = UA Waxy Cast) 1 [facility] AND [id number] 16:34:00 Test Item Value Reference Range Interpretation Comments UA Hyal Cast (test 4 See_Comment [Automat ed message] The code = UA Hyal Cast) system which generated this result transmit rohit reference range : <=2. The reference range was not used to interpr et this result as reji l/abnormal. [facility] AND [id number] 16:34:00 Test Item Value Reference Range Interpretation Comments UA Bacteria (test code = UA Occasional /HPF Bacteria) [facility] AND [id number] 16:34:00 Test Item Value Reference Range Interpretation Comments UA Mucus (test code = UA Mucus) Few /LPF [facility] AND [id number] 16:34:00 Test Item Value Reference Range Interpretation Comments UA Amorph Destiny (test code = Occasional /HPF UA Amorph Destiny) [facility] AND [id number] 16:34:00 Test Item Value Reference Range Interpretation Comments UA Leuk Est (test Negative (07/25/16 10:34 code = UA Leuk Est) AM) [facility] AND [id number] 16:34:00 Test Item Value Reference Range Interpretation Comments UA Nitrite (test code Negative (07/25/16 10:34 = UA Nitrite) AM) [facility] AND [id number] 16:34:00 Test Item Value Reference Range Interpretation Comments UA RBC (test code = 2 See_Comment [Automa rohit message] The UA RBC) system which ge nerated this result transmit rohit reference range : <=2. The reference range was not used to interpr et this result as reji l/abnormal. [facility] AND [id number] 16:34:00 Test Item Value Reference Range Interpretation Comments UA WBC (test code = 6 See_Comment [Automa rohit message] The UA WBC) system which ge nerated this result transmit rohit reference range : <=5. The reference range was not used to interpr et this result as reji l/abnormal. [facility] AND [id number] 16:34:00 Test Item Value Reference Range Interpretation Comments UA Urobilinogen (test code = UA 2.0 0.1-1.0 Urobilinogen) [facility] AND [id number] 16:34:00 Test Item Value Reference Range Interpretation Comments UA Ketones (test code = UA Negative mg/dL Ketones) [facility] AND [id number] 16:34:00 Test Item Value Reference Range Interpretation Comments UA Glucose (test code = UA Glucose) 70 mg/dL [facility] AND [id number] 16:34:00 Test Item Value Reference Range Interpretation Comments UA Blood (test code = Negative (07/25/16 10:34 UA Blood) AM) [facility] AND [id number] 16:34:00 Test Item Value Reference Range Interpretation Comments UA Bili (test code = Negative *NA*(07/25/16 UA Bili) 10:34 AM) [facility] AND [id number] 16:34:00 Test Item Value Reference Range Interpretation Comments UA Protein (test code = UA >=300 mg/dL Protein) [facility] AND [id number] 16:34:00 Test Item Value Reference Range Interpretation Comments UA Spec Grav (test code = UA Spec Grav) 1.012 [facility] AND [id number] 16:34:00 Test Item Value Reference Range Interpretation Comments UA pH (test code = UA pH) 5.5 5.0-8.0 [facility] AND [id number] 16:34:00 Test Item Value Reference Range Interpretation Comments UA Turbidity (test code Slight *ABN*(07/25/16 = UA Turbidity) 10:34 AM) [facility] AND [id number] 16:34:00 Test Item Value Reference Range Interpretation Comments UA Color (test code = Dark Yellow *NA*(07/25/16 UA Color) 10:34 AM) [facility] AND [id number] 16:34:00 Test Item Value Reference Range Interpretation Comments UA Gran Cast (test code = UA Gran Cast) 9 [facility] [id number] 16:34:00 Test Item Value Reference Range Interpretation Comments U Sodium (test code = U Sodium) 30 [facility] [id number] 16:34:00 Test Item Value Reference Range Interpretation Comments U Prot/Creat (test code = U Prot/Creat) 3.1 [facility] [id number] 16:34:00 Test Item Value Reference Range Interpretation Comments U Protein (test code = U Protein) 420.9 [facility] [id number] 16:34:00 Test Item Value Reference Range Interpretation Comments U Creatinine (test code = U 136.00 Creatinine) [facility] AND [id number] 16:34:00 Test Item Value Reference Range Interpretation Comments UA Sq Epi (test code = UA Sq Epi) None Seen [facility] AND [id number] 16:34:00 Test Item Value Reference Range Interpretation Comments UA Waxy Cast (test code = UA Waxy Cast) 1 [facility] AND [id number] 16:34:00 Test Item Value Reference Range Interpretation Comments UA Hyal Cast (test 4 See_Comment [Automat ed message] The code = UA Hyal Cast) system which generated this result transmit rohit reference range : <=2. The reference range was not used to interpr et this result as reji l/abnormal. [facility] AND [id number] 16:34:00 Test Item Value Reference Range Interpretation Comments UA Bacteria (test code = UA Occasional /HPF Bacteria) [facility] AND [id number] 16:34:00 Test Item Value Reference Range Interpretation Comments UA Mucus (test code = UA Mucus) Few /LPF [facility] AND [id number] 16:34:00 Test Item Value Reference Range Interpretation Comments UA Amorph Destiny (test code = Occasional /HPF UA Amorph Destiny) [facility] AND [id number] 16:34:00 Test Item Value Reference Range Interpretation Comments UA Leuk Est (test Negative (07/25/16 10:34 code = UA Leuk Est) AM) [facility] AND [id number] 16:34:00 Test Item Value Reference Range Interpretation Comments UA Nitrite (test code Negative (07/25/16 10:34 = UA Nitrite) AM) [facility] AND [id number] 16:34:00 Test Item Value Reference Range Interpretation Comments UA RBC (test code = 2 See_Comment [Automa rohit message] The UA RBC) system which ge nerated this result transmit rohit reference range : <=2. The reference range was not used to interpr et this result as reji l/abnormal. [facility] AND [id number] 16:34:00 Test Item Value Reference Range Interpretation Comments UA WBC (test code = 6 See_Comment [Automa rohit message] The UA WBC) system which ge nerated this result transmit rohit reference range : <=5. The reference range was not used to interpr et this result as reji l/abnormal. [facility] AND [id number] 16:34:00 Test Item Value Reference Range Interpretation Comments UA Urobilinogen (test code = UA 2.0 0.1-1.0 Urobilinogen) [facility] AND [id number] 16:34:00 Test Item Value Reference Range Interpretation Comments UA Ketones (test code = UA Negative mg/dL Ketones) [facility] AND [id number] 16:34:00 Test Item Value Reference Range Interpretation Comments UA Glucose (test code = UA Glucose) 70 mg/dL [facility] AND [id number] 16:34:00 Test Item Value Reference Range Interpretation Comments UA Blood (test code = Negative (07/25/16 10:34 UA Blood) AM) [facility] AND [id number] 16:34:00 Test Item Value Reference Range Interpretation Comments UA Bili (test code = Negative *NA*(07/25/16 UA Bili) 10:34 AM) [facility] AND [id number] 16:34:00 Test Item Value Reference Range Interpretation Comments UA Protein (test code = UA >=300 mg/dL Protein) [facility] AND [id number] 16:34:00 Test Item Value Reference Range Interpretation Comments UA Spec Grav (test code = UA Spec Grav) 1.012 [facility] AND [id number] 16:34:00 Test Item Value Reference Range Interpretation Comments UA pH (test code = UA pH) 5.5 5.0-8.0 [facility] AND [id number] 16:34:00 Test Item Value Reference Range Interpretation Comments UA Turbidity (test code Slight *ABN*(07/25/16 = UA Turbidity) 10:34 AM) [facility] AND [id number] 16:34:00 Test Item Value Reference Range Interpretation Comments UA Color (test code = Dark Yellow *NA*(07/25/16 UA Color) 10:34 AM) [facility] AND [id number] 16:34:00 Test Item Value Reference Range Interpretation Comments UA Gran Cast (test code = UA Gran Cast) 9 [facility] [id number] 16:34:00 Test Item Value Reference Range Interpretation Comments U Sodium (test code = U Sodium) 30 [facility]2017-02-04 16:34:00 Test Item Value Reference Range Interpretation Comments U Prot/Creat (test code = U Prot/Creat) 3.1 [facility]2017-02-04 16:34:00 Test Item Value Reference Range Interpretation Comments U Protein (test code = U Protein) 420.9 [facility]2017-02-04 16:34:00 Test Item Value Reference Range Interpretation Comments U Creatinine (test code = U 136.00 Creatinine) [facility]2017-02-04 08:55:00 Test Item Value Reference Range Interpretation Comments Magnesium Lvl (test code = Magnesium 2.0 1.8-2.4 Lvl) [facility]2017-02-04 08:55:00 Test Item Value Reference Range Interpretation Comments Phosphorus (test code = Phosphorus) 5.2 2.5-4.5 [facility]2017-02-04 08:55:00 Test Item Value Reference Range Interpretation Comments Magnesium Lvl (test code = Magnesium 2.0 1.8-2.4 Lvl) [facility]2017-02-04 08:55:00 Test Item Value Reference Range Interpretation Comments Phosphorus (test code = Phosphorus) 5.2 2.5-4.5 [facility]2017-02-04 08:55:00 Test Item Value Reference Range Interpretation Comments Magnesium Lvl (test code = Magnesium 2.0 1.8-2.4 Lvl) [facility]2017-02-04 08:55:00 Test Item Value Reference Range Interpretation Comments Phosphorus (test code = Phosphorus) 5.2 2.5-4.5 [facility]2017-02-04 08:55:00 Test Item Value Reference Range Interpretation Comments Magnesium Lvl (test code = Magnesium 2.0 1.8-2.4 Lvl) [facility]2017-02-04 08:55:00 Test Item Value Reference Range Interpretation Comments Phosphorus (test code = Phosphorus) 5.2 2.5-4.5 [facility]2017-02-04 08:55:00 Test Item Value Reference Range Interpretation Comments Magnesium Lvl (test code = Magnesium 2.0 1.8-2.4 Lvl) [facility] [id number] 08:55:00 Test Item Value Reference Range Interpretation Comments Phosphorus (test code = Phosphorus) 5.2 2.5-4.5 [facility] [id number] 17:29:00 Test Item Value Reference Range Interpretation Comments Troponin-I (test code 0.28 See_Comment [Auto mated message] The = Troponin-I) system which g enerated this result transmit rohit reference range : <=0.40. The reference r leo was not used to interpr et this result as reji l/abnormal. [facility] [id number] 17:29:00 Test Item Value Reference Range Interpretation Comments Total CK (test code = Total CK) 2616 12-191 [facility] [id number] 17:29:00 Test Item Value Reference Range Interpretation Comments Troponin-T (test code 0.144 See_Comment [Auto mated message] The = Troponin-T) system which g enerated this result transmit rohit reference range : <=0.100. The reference r leo was not used to interpr et this result as reji l/abnormal. [facility] [employer]2017-02-03 17:29:00 Test Item Value Reference Range Interpretation Comments CK MB Index (test 0.2 See_Comment [Automate d message] The code = CK MB Index) system w [facility] generated this result transmit rohit reference range : <=2.5. The reference range was not used to interpr et this result as reji l/abnormal. [facility]2017-02-03 17:29:00 Test Item Value Reference Range Interpretation Comments CK MB (test code = CK MB) 6.3 0.5-3.6 [facility]2017-02-03 17:29:00 Test Item Value Reference Range Interpretation Comments Troponin-I (test code 0.28 See_Comment [Auto mated message] The = Troponin-I) system which g enerated this result transmit rohit reference range : <=0.40. The reference r leo was not used to interpr et this result as reji l/abnormal. [facility] [employer]2017-02-03 17:29:00 Test Item Value Reference Range Interpretation Comments Total CK (test code = Total CK) 2615 [facility]2017-02-03 17:29:00 Test Item Value Reference Range Interpretation Comments Troponin-T (test code 0.144 See_Comment [Auto mated message] The = Troponin-T) system which g enerated this result transmit rohit reference range : <=0.100. The reference r leo was not used to interpr et this result as reji l/abnormal. [facility]2017-02-03 17:29:00 Test Item Value Reference Range Interpretation Comments CK MB Index (test 0.2 See_Comment [Automate d message] The code = CK MB Index) system w [facility] generated this result transmit rohit reference range : <=2.5. The reference range was not used to interpr et this result as reji l/abnormal. [facility]2017-02-03 17:29:00 Test Item Value Reference Range Interpretation Comments CK MB (test code = CK MB) 6.3 0.5-3.6 [facility] [id number] 17:29:00 Test Item Value Reference Range Interpretation Comments Troponin-I (test code 0.28 See_Comment [Auto mated message] The = Troponin-I) system which g enerated this result transmit rohit reference range : <=0.40. The reference r leo was not used to interpr et this result as reji l/abnormal. [facility]2017-02-03 17:29:00 Test Item Value Reference Range Interpretation Comments Total CK (test code = Total CK) 2615 [facility]burg[facility] [id number] 17:29:00 Test Item Value Reference Range Interpretation Comments Troponin-T (test code 0.144 See_Comment [Auto mated message] The = Troponin-T) system which g enerated this result transmit rohit reference range : <=0.100. The reference r leo was not used to interpr et this result as reji l/abnormal. [facility] [employer]2017-02-03 17:29:00 Test Item Value Reference Range Interpretation Comments CK MB Index (test 0.2 See_Comment [Automate d message] The code = CK MB Index) system w [facility] generated this result transmit rohit reference range : <=2.5. The reference range was not used to interpr et this result as reji l/abnormal. [facility] [employer]2017-02-03 17:29:00 Test Item Value Reference Range Interpretation Comments CK MB (test code = CK MB) 6.3 0.5-3.6 [facility] [id number] 17:29:00 Test Item Value Reference Range Interpretation Comments Troponin-I (test code 0.28 See_Comment [Auto mated message] The = Troponin-I) system which g enerated this result transmit rohit reference range : <=0.40. The reference r leo was not used to interpr et this result as reji l/abnormal. [facility]2017-02-03 17:29:00 Test Item Value Reference Range Interpretation Comments Total CK (test code = Total CK) 2616 12-191 [facility]2017-02-03 17:29:00 Test Item Value Reference Range Interpretation Comments Troponin-T (test code 0.144 See_Comment [Auto mated message] The = Troponin-T) system which g enerated this result transmit rohit reference range : <=0.100. The reference r leo was not used to interpr et this result as reji l/abnormal. [facility]2017-02-03 17:29:00 Test Item Value Reference Range Interpretation Comments CK MB Index (test 0.2 See_Comment [Automate d message] The code = CK MB Index) system w [facility] generated this result transmit rohit reference range : <=2.5. The reference range was not used to interpr et this result as reji l/abnormal. [facility] [employer]2017-02-03 17:29:00 Test Item Value Reference Range Interpretation Comments CK MB (test code = CK MB) 6.3 0.5-3.6 [facility]2017-02-03 17:29:00 Test Item Value Reference Range Interpretation Comments Troponin-I (test code 0.28 See_Comment [Auto mated message] The = Troponin-I) system which g enerated this result transmit rohit reference range : <=0.40. The reference r leo was not used to interpr et this result as reji l/abnormal. [facility] [id number] 17:29:00 Test Item Value Reference Range Interpretation Comments Total CK (test code = Total CK) 2616 12-191 [facility] [id number] 17:29:00 Test Item Value Reference Range Interpretation Comments Troponin-T (test code 0.144 See_Comment [Auto mated message] The = Troponin-T) system which g enerated this result transmit rohit reference range : <=0.100. The reference r leo was not used to interpr et this result as reji l/abnormal. [facility]Up[facility] [id number] 17:29:00 Test Item Value Reference Range Interpretation Comments CK MB Index (test 0.2 See_Comment [Automate d message] The code = CK MB Index) system w [employer] generated this result transmit rohit reference range : <=2.5. The reference range was not used to interpr et this result as reji l/abnormal. [facility] [id number] 17:29:00 Test Item Value Reference Range Interpretation Comments CK MB (test code = CK MB) 6.3 0.5-3.6 [facility] [id number] 11:20:00 Test Item Value Reference Range Interpretation Comments Troponin-I (test code 0.38 See_Comment [Auto mated message] The = Troponin-I) system which g enerated this result transmit rohit reference range : <=0.40. The reference r leo was not used to interpr et this result as reji l/abnormal. [facility]landnaeemNew [id number] 11:20:00 Test Item Value Reference Range Interpretation Comments Troponin-T (test code 0.173 See_Comment [Auto mated message] The = Troponin-T) system which g enerated this result transmit rohit reference range : <=0.100. The reference r leo was not used to interpr et this result as reji l/abnormal. [facility]landnaeemNew [id number] 11:20:00 Test Item Value Reference Range Interpretation Comments CK MB Index (test 0.2 See_Comment [Automate d message] The code = CK MB Index) system w [employer] generated this result transmit rohit reference range : <=2.5. The reference range was not used to interpr et this result as reji l/abnormal. [facility] [employer]2017-02-03 11:20:00 Test Item Value Reference Range Interpretation Comments CK MB (test code = CK MB) 5.6 0.5-3.6 [facility] [employer] [id number] 11:20:00 Test Item Value Reference Range Interpretation Comments Phosphorus (test code = Phosphorus) 5.5 2.5-4.5 [facility] [employer]2017-02-03 11:20:00 Test Item Value Reference Range Interpretation Comments Troponin-I (test code 0.38 See_Comment [Auto mated message] The = Troponin-I) system which g enerated this result transmit rohit reference range : <=0.40. The reference r leo was not used to interpr et this result as reji l/abnormal. [facility] [employer]2017-02-03 11:20:00 Test Item Value Reference Range Interpretation Comments Troponin-T (test code 0.173 See_Comment [Auto mated message] The = Troponin-T) system which g enerated this result transmit rohit reference range : <=0.100. The reference r leo was not used to interpr et this result as reji l/abnormal. [facility] [employer]2017-02-03 11:20:00 Test Item Value Reference Range Interpretation Comments CK MB Index (test 0.2 See_Comment [Automate d message] The code = CK MB Index) system w [facility] generated this result transmit rohit reference range : <=2.5. The reference range was not used to interpr et this result as reji l/abnormal. [facility] [employer]2017-02-03 11:20:00 Test Item Value Reference Range Interpretation Comments CK MB (test code = CK MB) 5.6 0.5-3.6 [facility] [employer] [id number] 11:20:00 Test Item Value Reference Range Interpretation Comments Phosphorus (test code = Phosphorus) 5.5 2.5-4.5 [facility] [employer]2017-02-03 11:20:00 Test Item Value Reference Range Interpretation Comments Troponin-I (test code 0.38 See_Comment [Auto mated message] The = Troponin-I) system which g enerated this result transmit rohit reference range : <=0.40. The reference r leo was not used to interpr et this result as reji l/abnormal. [facility] [employer] [id number] 11:20:00 Test Item Value Reference Range Interpretation Comments Troponin-T (test code 0.173 See_Comment [Auto mated message] The = Troponin-T) system which g enerated this result transmit rohit reference range : <=0.100. The reference r leo was not used to interpr et this result as reji l/abnormal. [facility] [employer]2017-02-03 11:20:00 Test Item Value Reference Range Interpretation Comments CK MB Index (test 0.2 See_Comment [Automate d message] The code = CK MB Index) system w [facility] generated this result transmit rohit reference range : <=2.5. The reference range was not used to interpr et this result as reji l/abnormal. [facility] [employer]2017-02-03 11:20:00 Test Item Value Reference Range Interpretation Comments CK MB (test code = CK MB) 5.6 0.5-3.6 [facility] [id number] 11:20:00 Test Item Value Reference Range Interpretation Comments Phosphorus (test code = Phosphorus) 5.5 2.5-4.5 [facility] [employer]2017-02-03 11:20:00 Test Item Value Reference Range Interpretation Comments Troponin-I (test code 0.38 See_Comment [Auto mated message] The = Troponin-I) system which g enerated this result transmit rohit reference range : <=0.40. The reference r leo was not used to interpr et this result as reji l/abnormal. [facility] [employer]2017-02-03 11:20:00 Test Item Value Reference Range Interpretation Comments Troponin-T (test code 0.173 See_Comment [Auto mated message] The = Troponin-T) system which g enerated this result transmit rohit reference range : <=0.100. The reference r leo was not used to interpr et this result as reji l/abnormal. [facility] [employer]2017-02-03 11:20:00 Test Item Value Reference Range Interpretation Comments CK MB Index (test 0.2 See_Comment [Automate d message] The code = CK MB Index) system w [facility] generated this result transmit rohit reference range : <=2.5. The reference range was not used to interpr et this result as reji l/abnormal. [facility] [employer]2017-02-03 11:20:00 Test Item Value Reference Range Interpretation Comments CK MB (test code = CK MB) 5.6 0.5-3.6 [facility] [employer] [id number] 11:20:00 Test Item Value Reference Range Interpretation Comments Phosphorus (test code = Phosphorus) 5.5 2.5-4.5 [facility] [employer]2017-02-03 11:20:00 Test Item Value Reference Range Interpretation Comments Troponin-I (test code 0.38 See_Comment [Auto mated message] The = Troponin-I) system which g enerated this result transmit rohit reference range : <=0.40. The reference r leo was not used to interpr et this result as reji l/abnormal. [facility] [employer]2017-02-03 11:20:00 Test Item Value Reference Range Interpretation Comments Troponin-T (test code 0.173 See_Comment [Auto mated message] The = Troponin-T) system which g enerated this result transmit rohit reference range : <=0.100. The reference r leo was not used to interpr et this result as reji l/abnormal. [facility] [employer]2017-02-03 11:20:00 Test Item Value Reference Range Interpretation Comments CK MB Index (test 0.2 See_Comment [Automate d message] The code = CK MB Index) system w [facility] generated this result transmit rohit reference range : <=2.5. The reference range was not used to interpr et this result as reji l/abnormal. [facility] [employer]2017-02-03 11:20:00 Test Item Value Reference Range Interpretation Comments CK MB (test code = CK MB) 5.6 0.5-3.6 [facility] [employer]2017-02-03 11:20:00 Test Item Value Reference Range Interpretation Comments Phosphorus (test code = Phosphorus) 5.5 2.5-4.5 [facility] [employer]2017-02-03 06:18:00 Test Item Value Reference Range Interpretation Comments BNP (test code = BNP) 701 [facility] [employer] [id number] 06:18:00 Test Item Value Reference Range Interpretation Comments BNP (test code = BNP) 701 [facility] [facility] [id number] 06:18:00 Test Item Value Reference Range Interpretation Comments BNP (test code = BNP) 701 [facility] [employer] [id number] 06:18:00 Test Item Value Reference Range Interpretation Comments BNP (test code = BNP) 701 [facility] [employer] [id number] 06:18:00 Test Item Value Reference Range Interpretation Comments BNP (test code = BNP) 701 [facility] [employer]2017-02-03 04:59:27 Test Item Value Reference Range Interpretation Comments Troponin-I (test code 0.57 See_Comment [Auto mated message] The = Troponin-I) system which g enerated this result transmit rohit reference range : <=0.40. The reference r leo was not used to interpr et this result as reji l/abnormal. [facility]2017-[facility] 04:59:27 Test Item Value Reference Range Interpretation Comments Troponin-I (test code 0.57 See_Comment [Auto mated message] The = Troponin-I) system which g enerated this result transmit rohit reference range : <=0.40. The reference r leo was not used to interpr et this result as reji l/abnormal. [facility] [employer]2017-02-03 04:59:27 Test Item Value Reference Range Interpretation Comments Troponin-I (test code 0.57 See_Comment [Auto mated message] The = Troponin-I) system which g enerated this result transmit rhoit reference range : <=0.40. The reference r leo was not used to interpr et this result as reji l/abnormal. [facility] [employer]2017-02-03 04:59:27 Test Item Value Reference Range Interpretation Comments Troponin-I (test code 0.57 See_Comment [Auto mated message] The = Troponin-I) system which g enerated this result transmit rohit reference range : <=0.40. The reference r leo was not used to interpr et this result as reji l/abnormal. [facility] [id number] 04:59:27 Test Item Value Reference Range Interpretation Comments Troponin-I (test code 0.57 See_Comment [Auto mated message] The = Troponin-I) system which g enerated this result transmit rohit reference range : <=0.40. The reference r leo was not used to interpr et this result as reji l/abnormal. [facility] [id number] 10:22:00 Test Item Value Reference Range Interpretation Comments BNP (test code = BNP) 526 [facility] [id number] 10:22:00 Test Item Value Reference Range Interpretation Comments Magnesium Lvl (test code = Magnesium 2.1 1.8-2.4 Lvl) [facility] [id number] 10:22:00 Test Item Value Reference Range Interpretation Comments Glucose Lvl (test code = Glucose Lvl) 117 70-99 [facility] [id number] 10:22:00 Test Item Value Reference Range Interpretation Comments BUN (test code = BUN) 41 7-22 [facility] [id number] 10:22:00 Test Item Value Reference Range Interpretation Comments Creatinine Lvl (test code = Creatinine 2.00 0.50-1.40 Lvl) [facility] [id number] 10:22:00 Test Item Value Reference Range Interpretation Comments Calcium Lvl (test code = Calcium Lvl) 9.0 8.5-10.5 [facility] [id number] 10:22:00 Test Item Value Reference Range Interpretation Comments Chloride Lvl (test code = Chloride Lvl) 102 95-109 [facility] [id number] 10:22:00 Test Item Value Reference Range Interpretation Comments CO2 (test code = CO2) 33 24-32 [facility] [id number] 10:22:00 Test Item Value Reference Range Interpretation Comments Sodium Lvl (test code = Sodium Lvl) 144 135-145 [facility] [id number] 10:22:00 Test Item Value Reference Range Interpretation Comments Potassium Lvl (test code = Potassium 4.0 3.5-5.1 Lvl) [facility]2016-12-26 10:22:00 Test Item Value Reference Range Interpretation Comments eGFR (test code = eGFR) 32 [facility] [id number] 10:22:00 Test Item Value Reference Range Interpretation Comments AGAP (test code = AGAP) 13.0 10.0-20.0 [facility] [id number] 10:22:00 Test Item Value Reference Range Interpretation Comments Phosphorus (test code = Phosphorus) 4.6 2.5-4.5 [facility] StationExfnejgHWHZDMXVSN3592-88-61 10:22:00 Test Item Value Reference Range Interpretation Comments RBC (test code = RBC) 3.68 4.20-5.40 [facility] StationHhucfqcEBBXZDBSTU7998-95-47 10:22:00 Test Item Value Reference Range Interpretation Comments Hgb (test code = Hgb) 9.9 12.0-16.0 [facility] StationAgodqccMWFLLXSHDB3614-46-21 10:22:00 Test Item Value Reference Range Interpretation Comments MCH (test code = MCH) 26.8 pg 27.0-31.0 [facility] StationThiifcrNOBNXZERAF7218-46-43 10:22:00 Test Item Value Reference Range Interpretation Comments MCHC (test code = MCHC) 34.2 32.0-36.0 [facility] StationJbasdbuQSKNOZLNPW6899-04-71 10:22:00 Test Item Value Reference Range Interpretation Comments MCV (test code = MCV) 78.3 80.0-98.0 [facility] StationAdypswyUJKRGVNWJG5352-31-63 10:22:00 Test Item Value Reference Range Interpretation Comments Hct (test code = Hct) 28.8 36.0-48.0 [facility] StationUoegcagEEKHYWDKZT1263-68-23 10:22:00 Test Item Value Reference Range Interpretation Comments Platelet (test code = Platelet) 191 133-450 [facility] StationTmpjnqpAFKONOASND5448-78-63 10:22:00 Test Item Value Reference Range Interpretation Comments MPV (test code = MPV) 9.5 7.4-10.4 [facility] StationRntlixzCZAUMZSSKF3834-28-82 10:22:00 Test Item Value Reference Range Interpretation Comments RDW (test code = RDW) 15.3 11.5-14.5 [facility] StationSkexatuMFVAQZBKHV9457-41-14 10:22:00 Test Item Value Reference Range Interpretation Comments WBC (test code = WBC) 5.6 3.7-10.4 [place] [id number] 10:22:00 Test Item Value Reference Range Interpretation Comments Eosinophils # (test code 0.5 See_Comment [A utomated message] The = Eosinophils #) system whic h generated this result tra nsmitted reference range : <=0.5. The reference r leo was not used to int erpret this result as normal/abnormal . [facility] StationEbdrupxYXOSLSQSYA2904-04-66 10:22:00 Test Item Value Reference Range Interpretation Comments Microcyte (test code = 1+ *ABN*(06/15/16 Microcyte) 4:22 AM) [facility] StationGvbgswjCASVHAXZRT7408-52-61 10:22:00 Test Item Value Reference Range Interpretation Comments Basophils # (test code 0.1 See_Comment [Aut omated message] The = Basophils #) system which generated this result tra nsmitted reference range : <=0.2. The reference r leo was not used to int erpret this result as normal/abnormal . [facility] StationPquggaePHCKHKAQIJ9297-87-24 10:22:00 Test Item Value Reference Range Interpretation Comments Lymphocytes (test code = Lymphocytes) 33.5 20.0-40.0 [facility] StationVdbxgmrILOVIUCSTY2901-68-37 10:22:00 Test Item Value Reference Range Interpretation Comments Segs (test code = Segs) 47.6 45.0-75.0 [facility] StationXkwsrgkXFULUCHHOG1808-65-40 10:22:00 Test Item Value Reference Range Interpretation Comments Monocytes (test code = Monocytes) 8.4 2.0-12.0 [facility] StationTzwpvewGKYVPTLHAQ0246-24-73 10:22:00 Test Item Value Reference Range Interpretation Comments Eosinophils (test code = 9.4 See_Comment [A utomated message] The Eosinophils) system which ge nerated this result tra nsmitted reference range : <=4.0. The reference r leo was not used to int erpret this result as normal/abnormal . [facility] StationPhhwearEJXUJIMWCF1416-76-20 10:22:00 Test Item Value Reference Range Interpretation Comments Segs-Bands # (test code = Segs-Bands #) 2.6 1.5-8.1 [facility] StationQwnflesPMFLGGDICO9456-97-23 10:22:00 Test Item Value Reference Range Interpretation Comments Lymphocytes # (test code = Lymphocytes 1.9 1.0-5.5 #) [facility]JK[facility]LRJOE9742[facility]-07 10:22:00 Test Item Value Reference Range Interpretation Comments Basophils (test code = 1.1 See_Comment [Aut omated message] The Basophils) system which ge nerated this result tra nsmitted reference range : <=1.0. The reference r leo was not used to int erpret this result as normal/abnormal . [facility] HospitalPohhdwsFKWVUEKDJL8011-66-42 10:22:00 Test Item Value Reference Range Interpretation Comments Monocytes # (test code 0.5 See_Comment [Aut omated message] The = Monocytes #) system which generated this result tra nsmitted reference range : <=0.8. The reference r leo was not used to int erpret this result as normal/abnormal . [facility] [id number] 10:22:00 Test Item Value Reference Range Interpretation Comments BNP (test code = BNP) 526 [facility] [id number] 10:22:00 Test Item Value Reference Range Interpretation Comments Magnesium Lvl (test code = Magnesium 2.1 1.8-2.4 Lvl) [facility]2016-12-26 10:22:00 Test Item Value Reference Range Interpretation Comments Glucose Lvl (test code = Glucose Lvl) 117 70-99 [facility]2016-12-26 10:22:00 Test Item Value Reference Range Interpretation Comments BUN (test code = BUN) 41 7-22 [facility]2016-12-26 10:22:00 Test Item Value Reference Range Interpretation Comments Creatinine Lvl (test code = Creatinine 2.00 0.50-1.40 Lvl) [facility]2016-12-26 10:22:00 Test Item Value Reference Range Interpretation Comments Calcium Lvl (test code = Calcium Lvl) 9.0 8.5-10.5 [facility]2016-12-26 10:22:00 Test Item Value Reference Range Interpretation Comments Chloride Lvl (test code = Chloride Lvl) 102 95-109 [facility]2016-12-26 10:22:00 Test Item Value Reference Range Interpretation Comments CO2 (test code = CO2) 33 24-32 [facility] [id number] 10:22:00 Test Item Value Reference Range Interpretation Comments Sodium Lvl (test code = Sodium Lvl) 144 135-145 [facility]2016-12-26 10:22:00 Test Item Value Reference Range Interpretation Comments Potassium Lvl (test code = Potassium 4.0 3.5-5.1 Lvl) [facility]2016-12-26 10:22:00 Test Item Value Reference Range Interpretation Comments eGFR (test code = eGFR) 32 [facility]2016-12-26 10:22:00 Test Item Value Reference Range Interpretation Comments AGAP (test code = AGAP) 13.0 10.0-20.0 [facility]2016-12-26 10:22:00 Test Item Value Reference Range Interpretation Comments Phosphorus (test code = Phosphorus) 4.6 2.5-4.5 [facility] StationJshxqsbNYQWWOVYBB6316-29-31 10:22:00 Test Item Value Reference Range Interpretation Comments RBC (test code = RBC) 3.68 4.20-5.40 [facility] StationSurmduoBQRHNQDEDW1259-64-27 10:22:00 Test Item Value Reference Range Interpretation Comments Hgb (test code = Hgb) 9.9 12.0-16.0 [facility] StationWbtmgseSSGFOGUUVE2613-70-70 10:22:00 Test Item Value Reference Range Interpretation Comments MCH (test code = MCH) 26.8 pg 27.0-31.0 [facility] StationLqskfltEVXSQHRGGQ0924-23-39 10:22:00 Test Item Value Reference Range Interpretation Comments MCHC (test code = MCHC) 34.2 32.0-36.0 [facility] StationYhxzosdDECFKUADQM7106-36-46 10:22:00 Test Item Value Reference Range Interpretation Comments MCV (test code = MCV) 78.3 80.0-98.0 [facility] StationSwsnyduJSRNKKFEWN4053-80-22 10:22:00 Test Item Value Reference Range Interpretation Comments Hct (test code = Hct) 28.8 36.0-48.0 [facility] StationOeolhnpSRGWACFUEJ5435-66-52 10:22:00 Test Item Value Reference Range Interpretation Comments Platelet (test code = Platelet) 191 133-450 [facility] StationLmappqrAKCCSTDEAH3369-43-90 10:22:00 Test Item Value Reference Range Interpretation Comments MPV (test code = MPV) 9.5 7.4-10.4 [facility] StationDoditpiXGSMKZOUWR1826-35-72 10:22:00 Test Item Value Reference Range Interpretation Comments RDW (test code = RDW) 15.3 11.5-14.5 [facility] StationCohkytrKJTDXCHNDH1031-65-66 10:22:00 Test Item Value Reference Range Interpretation Comments WBC (test code = WBC) 5.6 3.7-10.4 [facility] StationGwvchffTOIDMIETZS7607-68-79 10:22:00 Test Item Value Reference Range Interpretation Comments Eosinophils # (test code 0.5 See_Comment [A utomated message] The = Eosinophils #) system whic h generated this result tra nsmitted reference range : <=0.5. The reference r leo was not used to int erpret this result as normal/abnormal . [facility] StationIlmwwriQFIWNHIXPO2106-11-74 10:22:00 Test Item Value Reference Range Interpretation Comments Microcyte (test code = 1+ *ABN*(06/15/16 Microcyte) 4:22 AM) [facility] StationJozryycMAZYMZCPDB4908-19-82 10:22:00 Test Item Value Reference Range Interpretation Comments Basophils # (test code 0.1 See_Comment [Aut omated message] The = Basophils #) system which generated this result tra nsmitted reference range : <=0.2. The reference r leo was not used to int erpret this result as normal/abnormal . [facility] StationBgvlqqdOCNDIWCQFQ7234-39-38 10:22:00 Test Item Value Reference Range Interpretation Comments Lymphocytes (test code = Lymphocytes) 33.5 20.0-40.0 [facility] StationOrxtrgzGCIUUHEWGH9946-01-41 10:22:00 Test Item Value Reference Range Interpretation Comments Segs (test code = Segs) 47.6 45.0-75.0 [facility] StationRgiwfruPOXHPHWBCD8811-04-64 10:22:00 Test Item Value Reference Range Interpretation Comments Monocytes (test code = Monocytes) 8.4 2.0-12.0 [facility] StationMbgerdeGDMBAOMMFP5401-40-86 10:22:00 Test Item Value Reference Range Interpretation Comments Eosinophils (test code = 9.4 See_Comment [A utomated message] The Eosinophils) system which ge nerated this result tra nsmitted reference range : <=4.0. The reference r leo was not used to int erpret this result as normal/abnormal . [facility] StationKynlzccXPJQTHZDOQ2674-46-91 10:22:00 Test Item Value Reference Range Interpretation Comments Segs-Bands # (test code = Segs-Bands #) 2.6 1.5-8.1 [facility] HospitalBqlfmnmBBJZAVMWVE8840-99-40 10:22:00 Test Item Value Reference Range Interpretation Comments Lymphocytes # (test code = Lymphocytes 1.9 1.0-5.5 #) [facility] StationEndpsnsHUHJQXQXOI7192-30-55 10:22:00 Test Item Value Reference Range Interpretation Comments Basophils (test code = 1.1 See_Comment [Aut omated message] The Basophils) system which ge nerated this result tra nsmitted reference range : <=1.0. The reference r leo was not used to int erpret this result as normal/abnormal . [facility] StationMigwlcdHSYQACSEVO6160-50-65 10:22:00 Test Item Value Reference Range Interpretation Comments Monocytes # (test code 0.5 See_Comment [Aut omated message] The = Monocytes #) system which generated this result tra nsmitted reference range : <=0.8. The reference r leo was not used to int erpret this result as normal/abnormal . [facility]ARD[facility] [id number] 10:22:00 Test Item Value Reference Range Interpretation Comments BNP (test code = BNP) 526 [facility] [id number] 10:22:00 Test Item Value Reference Range Interpretation Comments Magnesium Lvl (test code = Magnesium 2.1 1.8-2.4 Lvl) [facility]2016-12-26 10:22:00 Test Item Value Reference Range Interpretation Comments Glucose Lvl (test code = Glucose Lvl) 117 70-99 [facility]2016-12-26 10:22:00 Test Item Value Reference Range Interpretation Comments BUN (test code = BUN) 41 7-22 [facility] [id number] 10:22:00 Test Item Value Reference Range Interpretation Comments Creatinine Lvl (test code = Creatinine 2.00 0.50-1.40 Lvl) [facility]2016-12-26 10:22:00 Test Item Value Reference Range Interpretation Comments Calcium Lvl (test code = Calcium Lvl) 9.0 8.5-10.5 [facility] [id number] 10:22:00 Test Item Value Reference Range Interpretation Comments Chloride Lvl (test code = Chloride Lvl) 102 95-109 [facility]2016-12-26 10:22:00 Test Item Value Reference Range Interpretation Comments CO2 (test code = CO2) 33 24-32 [facility]2016-12-26 10:22:00 Test Item Value Reference Range Interpretation Comments Sodium Lvl (test code = Sodium Lvl) 144 135-145 [facility]2016-12-26 10:22:00 Test Item Value Reference Range Interpretation Comments Potassium Lvl (test code = Potassium 4.0 3.5-5.1 Lvl) [facility]2016-12-26 10:22:00 Test Item Value Reference Range Interpretation Comments eGFR (test code = eGFR) 32 [facility]2016-12-26 10:22:00 Test Item Value Reference Range Interpretation Comments AGAP (test code = AGAP) 13.0 10.0-20.0 [facility]2016-12-26 10:22:00 Test Item Value Reference Range Interpretation Comments Phosphorus (test code = Phosphorus) 4.6 2.5-4.5 [facility] StationHjhejybPTXGFUJXFJ7497-96-71 10:22:00 Test Item Value Reference Range Interpretation Comments RBC (test code = RBC) 3.68 4.20-5.40 [facility] StationFadtmjxCHCONJERTI9110-24-84 10:22:00 Test Item Value Reference Range Interpretation Comments Hgb (test code = Hgb) 9.9 12.0-16.0 [facility] StationIcazzybAEWSSVRWUE4974-16-35 10:22:00 Test Item Value Reference Range Interpretation Comments MCH (test code = MCH) 26.8 pg 27.0-31.0 [facility] StationPldufjoFXJFOVYKPK1890-30-15 10:22:00 Test Item Value Reference Range Interpretation Comments MCHC (test code = MCHC) 34.2 32.0-36.0 [facility] StationBqukkuaSAIWPUKIDJ1150-59-39 10:22:00 Test Item Value Reference Range Interpretation Comments MCV (test code = MCV) 78.3 80.0-98.0 [place] 545586-12-26 10:22:00 Test Item Value Reference Range Interpretation Comments Hct (test code = Hct) 28.8 36.0-48.0 [place] 545586-12-26 10:22:00 Test Item Value Reference Range Interpretation Comments Platelet (test code = Platelet) 191 133-450 [facility] StationEkygimtVYMPRVLNYT6135-81-02 10:22:00 Test Item Value Reference Range Interpretation Comments MPV (test code = MPV) 9.5 7.4-10.4 [facility] StationOwkdogtHPCZYOXEAB6907-11-12 10:22:00 Test Item Value Reference Range Interpretation Comments RDW (test code = RDW) 15.3 11.5-14.5 [facility] StationFiyydpeEUAAPXFJZV4395-38-29 10:22:00 Test Item Value Reference Range Interpretation Comments WBC (test code = WBC) 5.6 3.7-10.4 [facility] StationWvzuagzYUIGMEEALC7081-38-39 10:22:00 Test Item Value Reference Range Interpretation Comments Eosinophils # (test code 0.5 See_Comment [A utomated message] The = Eosinophils #) system whic h generated this result tra nsmitted reference range : <=0.5. The reference r leo was not used to int erpret this result as normal/abnormal . [facility] StationKriyastUMSQROKNFR5048-54-05 10:22:00 Test Item Value Reference Range Interpretation Comments Microcyte (test code = 1+ *ABN*(06/15/16 Microcyte) 4:22 AM) [facility] StationIiaemkxDTGRIYTANS5817-71-95 10:22:00 Test Item Value Reference Range Interpretation Comments Basophils # (test code 0.1 See_Comment [Aut omated message] The = Basophils #) system which generated this result tra nsmitted reference range : <=0.2. The reference r leo was not used to int erpret this result as normal/abnormal . [facility] StationAjqckhgEGFYLUFALO8965-88-48 10:22:00 Test Item Value Reference Range Interpretation Comments Lymphocytes (test code = Lymphocytes) 33.5 20.0-40.0 [facility] StationUcmwgxkSOADRAKVHW3434-48-21 10:22:00 Test Item Value Reference Range Interpretation Comments Segs (test code = Segs) 47.6 45.0-75.0 [facility] StationRxarkedJLBXNXWAEP2849-04-01 10:22:00 Test Item Value Reference Range Interpretation Comments Monocytes (test code = Monocytes) 8.4 2.0-12.0 [facility] StationCflugxqQQLQOPEKOW7518-65-45 10:22:00 Test Item Value Reference Range Interpretation Comments Eosinophils (test code = 9.4 See_Comment [A utomated message] The Eosinophils) system which ge nerated this result tra nsmitted reference range : <=4.0. The reference r leo was not used to int erpret this result as normal/abnormal . [facility] StationWlmtxywJCGACZECJU6010-05-73 10:22:00 Test Item Value Reference Range Interpretation Comments Segs-Bands # (test code = Segs-Bands #) 2.6 1.5-8.1 [facility] StationRjramylYMJHQUGZQU6666-52-82 10:22:00 Test Item Value Reference Range Interpretation Comments Lymphocytes # (test code = Lymphocytes 1.9 1.0-5.5 #) [facility] StationLmuhduqQOXECBYIFS7053-40-48 10:22:00 Test Item Value Reference Range Interpretation Comments Basophils (test code = 1.1 See_Comment [Aut omated message] The Basophils) system which ge nerated this result tra nsmitted reference range : <=1.0. The reference r leo was not used to int erpret this result as normal/abnormal . [facility] StationPtcruqcFZPBHOEHEK1414-31-14 10:22:00 Test Item Value Reference Range Interpretation Comments Monocytes # (test code 0.5 See_Comment [Aut omated message] The = Monocytes #) system which generated this result tra nsmitted reference range : <=0.8. The reference r leo was not used to int erpret this result as normal/abnormal . [facility] RFPHBNI2992-72-70 10:22:00 Test Item Value Reference Range Interpretation Comments BNP (test code = BNP) 526 [facility]2016-12-26 10:22:00 Test Item Value Reference Range Interpretation Comments Magnesium Lvl (test code = Magnesium 2.1 1.8-2.4 Lvl) [facility]2016-12-26 10:22:00 Test Item Value Reference Range Interpretation Comments Glucose Lvl (test code = Glucose Lvl) 117 70-99 [facility]2016-12-26 10:22:00 Test Item Value Reference Range Interpretation Comments BUN (test code = BUN) 41 7-22 [facility]2016-12-26 10:22:00 Test Item Value Reference Range Interpretation Comments Creatinine Lvl (test code = Creatinine 2.00 0.50-1.40 Lvl) [facility]2016-12-26 10:22:00 Test Item Value Reference Range Interpretation Comments Calcium Lvl (test code = Calcium Lvl) 9.0 8.5-10.5 [facility]2016-12-26 10:22:00 Test Item Value Reference Range Interpretation Comments Chloride Lvl (test code = Chloride Lvl) 102 95-109 [facility]2016-12-26 10:22:00 Test Item Value Reference Range Interpretation Comments CO2 (test code = CO2) 33 24-32 [facility]2016-12-26 10:22:00 Test Item Value Reference Range Interpretation Comments Sodium Lvl (test code = Sodium Lvl) 144 135-145 [facility]2016-12-26 10:22:00 Test Item Value Reference Range Interpretation Comments Potassium Lvl (test code = Potassium 4.0 3.5-5.1 Lvl) [facility]2016-12-26 10:22:00 Test Item Value Reference Range Interpretation Comments eGFR (test code = eGFR) 32 [facility]2016-12-26 10:22:00 Test Item Value Reference Range Interpretation Comments AGAP (test code = AGAP) 13.0 10.0-20.0 [facility]2016-12-26 10:22:00 Test Item Value Reference Range Interpretation Comments Phosphorus (test code = Phosphorus) 4.6 2.5-4.5 [facility] StationWxayvbvNBEGBZJTEN9100-74-35 10:22:00 Test Item Value Reference Range Interpretation Comments RBC (test code = RBC) 3.68 4.20-5.40 [facility] StationWfphvwqNWDLVDIQYM8102-23-28 10:22:00 Test Item Value Reference Range Interpretation Comments Hgb (test code = Hgb) 9.9 12.0-16.0 [facility] StationBqbdboiGYHWIZIOBO0567-53-21 10:22:00 Test Item Value Reference Range Interpretation Comments MCH (test code = MCH) 26.8 pg 27.0-31.0 [facility] StationPifkicfMTWRTBPFVQ0724-01-02 10:22:00 Test Item Value Reference Range Interpretation Comments MCHC (test code = MCHC) 34.2 32.0-36.0 [facility] StationKozypjsZNPYJWJQDJ5540-03-29 10:22:00 Test Item Value Reference Range Interpretation Comments MCV (test code = MCV) 78.3 80.0-98.0 [facility] StationVhtajfqOTBFBKVZNJ4628-76-71 10:22:00 Test Item Value Reference Range Interpretation Comments Hct (test code = Hct) 28.8 36.0-48.0 [facility] StationKpsntvaRBGLVTXXKJ1240-63-85 10:22:00 Test Item Value Reference Range Interpretation Comments Platelet (test code = Platelet) 191 133-450 [facility] StationYenykzjPMLISHFHFA9625-65-75 10:22:00 Test Item Value Reference Range Interpretation Comments MPV (test code = MPV) 9.5 7.4-10.4 [facility] StationOftsdocGGXOBFCCEU2659-10-36 10:22:00 Test Item Value Reference Range Interpretation Comments RDW (test code = RDW) 15.3 11.5-14.5 [facility] StationOxucvzsVSQAFXWMUZ2838-92-44 10:22:00 Test Item Value Reference Range Interpretation Comments WBC (test code = WBC) 5.6 3.7-10.4 [facility] StationYsvbzekPFCLINEGOA0191-38-76 10:22:00 Test Item Value Reference Range Interpretation Comments Eosinophils # (test code 0.5 See_Comment [A utomated message] The = Eosinophils #) system whic h generated this result tra nsmitted reference range : <=0.5. The reference r leo was not used to int erpret this result as normal/abnormal . [facility] StationIolseoeRCYCQPAMCF3954-05-41 10:22:00 Test Item Value Reference Range Interpretation Comments Microcyte (test code = 1+ *ABN*(06/15/16 Microcyte) 4:22 AM) [facility] StationMttrpzeVJGLRCLXFL5158-51-59 10:22:00 Test Item Value Reference Range Interpretation Comments Basophils # (test code 0.1 See_Comment [Aut omated message] The = Basophils #) system which generated this result tra nsmitted reference range : <=0.2. The reference r leo was not used to int erpret this result as normal/abnormal . [facility] StationNceridvJTRITSYMCG3668-24-35 10:22:00 Test Item Value Reference Range Interpretation Comments Lymphocytes (test code = Lymphocytes) 33.5 20.0-40.0 [facility] StationPhwtkqnCYHTMTSBJS4244-25-34 10:22:00 Test Item Value Reference Range Interpretation Comments Segs (test code = Segs) 47.6 45.0-75.0 [facility]TvvcdaqDJDMYYTPMQ1637-60-21 10:22:00 Test Item Value Reference Range Interpretation Comments Monocytes (test code = Monocytes) 8.4 2.0-12.0 [facility] HospitalKwzudhiHYNYOJLHWD2392-83-43 10:22:00 Test Item Value Reference Range Interpretation Comments Eosinophils (test code = 9.4 See_Comment [A utomated message] The Eosinophils) system which ge nerated this result tra nsmitted reference range : <=4.0. The reference r leo was not used to int erpret this result as normal/abnormal . [facility] StationGgejqdlLONANUKRMN4304-05-92 10:22:00 Test Item Value Reference Range Interpretation Comments Segs-Bands # (test code = Segs-Bands #) 2.6 1.5-8.1 [facility] StationBskdwhqMDBGBDGTIQ3626-59-27 10:22:00 Test Item Value Reference Range Interpretation Comments Lymphocytes # (test code = Lymphocytes 1.9 1.0-5.5 #) [facility] StationRrpxmteHIUSIIBVPV0059-60-88 10:22:00 Test Item Value Reference Range Interpretation Comments Basophils (test code = 1.1 See_Comment [Aut omated message] The Basophils) system which ge nerated this result tra nsmitted reference range : <=1.0. The reference r leo was not used to int erpret this result as normal/abnormal . [facility] StationTyheibhOKSYOHTCHU9804-04-07 10:22:00 Test Item Value Reference Range Interpretation Comments Monocytes # (test code 0.5 See_Comment [Aut omated message] The = Monocytes #) system which generated this result tra nsmitted reference range : <=0.8. The reference r leo was not used to int erpret this result as normal/abnormal . [facility]CARDI[facility] JLORLQZ7071-27-19 10:22:00 Test Item Value Reference Range Interpretation Comments BNP (test code = BNP) 526 [facility]burgCircleBuilder AMEMN0791-73-44 10:22:00 Test Item Value Reference Range Interpretation Comments Magnesium Lvl (test code = Magnesium 2.1 1.8-2.4 Lvl) [facility]burgCircle[facility] QPBHF0902-15-80 10:22:00 Test Item Value Reference Range Interpretation Comments Glucose Lvl (test code = Glucose Lvl) 117 70-99 [facility]2016-12-26 10:22:00 Test Item Value Reference Range Interpretation Comments BUN (test code = BUN) 41 7-22 [facility]2016-12-26 10:22:00 Test Item Value Reference Range Interpretation Comments Creatinine Lvl (test code = Creatinine 2.00 0.50-1.40 Lvl) [facility]2016-12-26 10:22:00 Test Item Value Reference Range Interpretation Comments Calcium Lvl (test code = Calcium Lvl) 9.0 8.5-10.5 [facility]2016-12-26 10:22:00 Test Item Value Reference Range Interpretation Comments Chloride Lvl (test code = Chloride Lvl) 102 95-109 [facility]2016-12-26 10:22:00 Test Item Value Reference Range Interpretation Comments CO2 (test code = CO2) 33 24-32 [facility]2016-12-26 10:22:00 Test Item Value Reference Range Interpretation Comments Sodium Lvl (test code = Sodium Lvl) 144 135-145 [facility]2016-12-26 10:22:00 Test Item Value Reference Range Interpretation Comments Potassium Lvl (test code = Potassium 4.0 3.5-5.1 Lvl) [facility]2016-12-26 10:22:00 Test Item Value Reference Range Interpretation Comments eGFR (test code = eGFR) 32 [facility]2016-12-26 10:22:00 Test Item Value Reference Range Interpretation Comments AGAP (test code = AGAP) 13.0 10.0-20.0 [facility]2016-12-26 10:22:00 Test Item Value Reference Range Interpretation Comments Phosphorus (test code = Phosphorus) 4.6 2.5-4.5 [facility] StationJvmozpzGXUBQPLMZD3162-22-00 10:22:00 Test Item Value Reference Range Interpretation Comments RBC (test code = RBC) 3.68 4.20-5.40 [facility] StationEohektnIRKUCRHYWU1764-80-75 10:22:00 Test Item Value Reference Range Interpretation Comments Hgb (test code = Hgb) 9.9 12.0-16.0 [facility] StationJtnorbgLFWFQWOUVM5098-23-82 10:22:00 Test Item Value Reference Range Interpretation Comments MCH (test code = MCH) 26.8 pg 27.0-31.0 [facility] StationVvscglhKKSDYFOINV6013-25-21 10:22:00 Test Item Value Reference Range Interpretation Comments MCHC (test code = MCHC) 34.2 32.0-36.0 [facility] StationDvbsrjyZTYSIMWRBD9151-29-63 10:22:00 Test Item Value Reference Range Interpretation Comments MCV (test code = MCV) 78.3 80.0-98.0 [facility] StationJoqhaaeRHEJPQPYAC3177-19-20 10:22:00 Test Item Value Reference Range Interpretation Comments Hct (test code = Hct) 28.8 36.0-48.0 [facility] StationWmqvzhiCSRSITNUKW3177-09-00 10:22:00 Test Item Value Reference Range Interpretation Comments Platelet (test code = Platelet) 191 133-450 [facility] StationFgugslnJVRCCPGWPY3695-24-42 10:22:00 Test Item Value Reference Range Interpretation Comments MPV (test code = MPV) 9.5 7.4-10.4 [facility] StationVarzutjKINNGTNFDC2358-32-49 10:22:00 Test Item Value Reference Range Interpretation Comments RDW (test code = RDW) 15.3 11.5-14.5 [facility] StationNqsnplgGRTXNFHKJQ0225-46-47 10:22:00 Test Item Value Reference Range Interpretation Comments WBC (test code = WBC) 5.6 3.7-10.4 [facility] StationLlqjorwSVRPFNROWE9392-97-50 10:22:00 Test Item Value Reference Range Interpretation Comments Eosinophils # (test code 0.5 See_Comment [A utomated message] The = Eosinophils #) system whic h generated this result tra nsmitted reference range : <=0.5. The reference r leo was not used to int erpret this result as normal/abnormal . [facility] StationDvltbjgHIEUILXTSE8958-54-27 10:22:00 Test Item Value Reference Range Interpretation Comments Microcyte (test code = 1+ *ABN*(06/15/16 Microcyte) 4:22 AM) [facility] StationTgfaiftQQVSZLEOJG5187-26-50 10:22:00 Test Item Value Reference Range Interpretation Comments Basophils # (test code 0.1 See_Comment [Aut omated message] The = Basophils #) system which generated this result tra nsmitted reference range : <=0.2. The reference r leo was not used to int erpret this result as normal/abnormal . [facility] StationKfcsdxrLYNUKPZLZJ4835-90-61 10:22:00 Test Item Value Reference Range Interpretation Comments Lymphocytes (test code = Lymphocytes) 33.5 20.0-40.0 [facility] StationUpinzyrCVXVGRLLXW9195-66-27 10:22:00 Test Item Value Reference Range Interpretation Comments Segs (test code = Segs) 47.6 45.0-75.0 [facility] StationXfzpovtGGLWUGVDMJ7312-77-90 10:22:00 Test Item Value Reference Range Interpretation Comments Monocytes (test code = Monocytes) 8.4 2.0-12.0 [facility] StationUibusgqYNBOFJSDSJ0182-47-23 10:22:00 Test Item Value Reference Range Interpretation Comments Eosinophils (test code = 9.4 See_Comment [A utomated message] The Eosinophils) system which ge nerated this result tra nsmitted reference range : <=4.0. The reference r leo was not used to int erpret this result as normal/abnormal . [facility] StationSboffmwCYPZSVOMUI4940-09-15 10:22:00 Test Item Value Reference Range Interpretation Comments Segs-Bands # (test code = Segs-Bands #) 2.6 1.5-8.1 [facility] StationUuqinecMZPIHUZZBI5640-16-39 10:22:00 Test Item Value Reference Range Interpretation Comments Lymphocytes # (test code = Lymphocytes 1.9 1.0-5.5 #) [facility] StationKcnttgjGNYSTBNMFY1397-41-16 10:22:00 Test Item Value Reference Range Interpretation Comments Basophils (test code = 1.1 See_Comment [Aut omated message] The Basophils) system which ge nerated this result tra nsmitted reference range : <=1.0. The reference r leo was not used to int erpret this result as normal/abnormal . [facility] StationLvibabkXICWSSTJSQ4103-56-98 10:22:00 Test Item Value Reference Range Interpretation Comments Monocytes # (test code 0.5 See_Comment [Aut omated message] The = Monocytes #) system which generated this result tra nsmitted reference range : <=0.8. The reference r leo was not used to int erpret this result as normal/abnormal . [facility]2016-12-25 11:03:00 Test Item Value Reference Range Interpretation Comments Phosphorus (test code = Phosphorus) 4.8 2.5-4.5 [facility]2016-12-25 11:03:00 Test Item Value Reference Range Interpretation Comments Magnesium Lvl (test code = Magnesium 2.0 1.8-2.4 Lvl) [facility]2016-12-25 11:03:00 Test Item Value Reference Range Interpretation Comments eGFR (test code = eGFR) 32 [facility]2016-12-25 11:03:00 Test Item Value Reference Range Interpretation Comments Chloride Lvl (test code = Chloride Lvl) 101 95-109 [facility]2016-12-25 11:03:00 Test Item Value Reference Range Interpretation Comments Potassium Lvl (test code = Potassium 4.4 3.5-5.1 Lvl) [facility]2016-12-25 11:03:00 Test Item Value Reference Range Interpretation Comments BUN (test code = BUN) 37 7-22 [facility]2016-12-25 11:03:00 Test Item Value Reference Range Interpretation Comments Glucose Lvl (test code = Glucose Lvl) 119 70-99 [facility]2016-12-25 11:03:00 Test Item Value Reference Range Interpretation Comments Creatinine Lvl (test code = Creatinine 2.00 0.50-1.40 Lvl) [facility]2016-12-25 11:03:00 Test Item Value Reference Range Interpretation Comments Sodium Lvl (test code = Sodium Lvl) 142 135-145 [facility]2016-12-25 11:03:00 Test Item Value Reference Range Interpretation Comments Calcium Lvl (test code = Calcium Lvl) 8.7 8.5-10.5 [facility]2016-12-25 11:03:00 Test Item Value Reference Range Interpretation Comments CO2 (test code = CO2) 32 24-32 [facility]2016-12-25 11:03:00 Test Item Value Reference Range Interpretation Comments AGAP (test code = AGAP) 13.4 10.0-20.0 [facility]QmdyjpeQALCJLFLJA2106-70-40 11:03:00 Test Item Value Reference Range Interpretation Comments Eosinophils (test code = 10.3 See_Comment [A utomated message] The Eosinophils) system which ge nerated this result tra nsmitted reference range : <=4.0. The reference r leo was not used to int erpret this result as normal/abnormal . [facility] StationJiofoozSTBTPXZXKW2291-02-52 11:03:00 Test Item Value Reference Range Interpretation Comments Basophils # (test code 0.1 See_Comment [Aut omated message] The = Basophils #) system which generated this result tra nsmitted reference range : <=0.2. The reference r leo was not used to int erpret this result as normal/abnormal . [facility] StationPygspskTNXEFNCYBC9312-62-86 11:03:00 Test Item Value Reference Range Interpretation Comments Eosinophils # (test code 0.5 See_Comment [A utomated message] The = Eosinophils #) system whic h generated this result tra nsmitted reference range : <=0.5. The reference r leo was not used to int erpret this result as normal/abnormal . [facility] StationWdnopefTPFIQIWPQI1399-04-63 11:03:00 Test Item Value Reference Range Interpretation Comments Monocytes # (test code 0.5 See_Comment [Aut omated message] The = Monocytes #) system which generated this result tra nsmitted reference range : <=0.8. The reference r leo was not used to int erpret this result as normal/abnormal . [facility] StationRieyhxyZJBVOLIUYO9260-34-19 11:03:00 Test Item Value Reference Range Interpretation Comments Segs-Bands # (test code = Segs-Bands #) 2.1 1.5-8.1 [facility] StationXuetvgpHDRERWEYCZ5801-27-81 11:03:00 Test Item Value Reference Range Interpretation Comments Basophils (test code = 1.2 See_Comment [Aut omated message] The Basophils) system which ge nerated this result tra nsmitted reference range : <=1.0. The reference r leo was not used to int erpret this result as normal/abnormal . [facility] StationQcaexubXZDQRUTMHL4075-01-18 11:03:00 Test Item Value Reference Range Interpretation Comments Lymphocytes # (test code = Lymphocytes 1.9 1.0-5.5 #) [facility] StationGboxnwzEUXYBAVDPR6904-07-65 11:03:00 Test Item Value Reference Range Interpretation Comments Segs (test code = Segs) 42.5 45.0-75.0 [facility] StationBvnzavuCRECOYIKBX9222-17-17 11:03:00 Test Item Value Reference Range Interpretation Comments Lymphocytes (test code = Lymphocytes) 37.0 20.0-40.0 [facility]GdqalbzEQCJBQKCGB3856-35-75 11:03:00 Test Item Value Reference Range Interpretation Comments Monocytes (test code = Monocytes) 9.0 2.0-12.0 [facility] StationHcjnxnrPCRQCSNBYE1638-71-89 11:03:00 Test Item Value Reference Range Interpretation Comments MPV (test code = MPV) 9.8 7.4-10.4 [facility] StationOlqntjoRHLZZGWQOW2744-34-52 11:03:00 Test Item Value Reference Range Interpretation Comments WBC (test code = WBC) 5.0 3.7-10.4 [facility] StationFozqowkJYRHMMWMYW4530-63-28 11:03:00 Test Item Value Reference Range Interpretation Comments RBC (test code = RBC) 3.57 4.20-5.40 [facility] StationIistxpcXHCRXFIGXU5312-64-09 11:03:00 Test Item Value Reference Range Interpretation Comments Hgb (test code = Hgb) 9.4 12.0-16.0 [facility] StationCnbkjrlMSJHECISZD1646-52-95 11:03:00 Test Item Value Reference Range Interpretation Comments Hct (test code = Hct) 28.5 36.0-48.0 [facility] StationBvttchpEPWRHEHJEX0340-21-64 11:03:00 Test Item Value Reference Range Interpretation Comments Platelet (test code = Platelet) 183 133-450 [facility] StationQgyquljJGDLUCVACU4542-25-18 11:03:00 Test Item Value Reference Range Interpretation Comments MCV (test code = MCV) 79.9 80.0-98.0 [facility] StationJqnmqzmWNUXMRGRXZ0101-43-55 11:03:00 Test Item Value Reference Range Interpretation Comments MCH (test code = MCH) 26.3 pg 27.0-31.0 [facility] StationEweybewYZCPBWUGUQ0963-14-35 11:03:00 Test Item Value Reference Range Interpretation Comments MCHC (test code = MCHC) 33.0 32.0-36.0 [facility] StationQdjxezyCKYDOWREIV4820-05-93 11:03:00 Test Item Value Reference Range Interpretation Comments RDW (test code = RDW) 15.9 11.5-14.5 [facility]2016-12-25 11:03:00 Test Item Value Reference Range Interpretation Comments Phosphorus (test code = Phosphorus) 4.8 2.5-4.5 [facility]2016-12-25 11:03:00 Test Item Value Reference Range Interpretation Comments Magnesium Lvl (test code = Magnesium 2.0 1.8-2.4 Lvl) [facility]2016-12-25 11:03:00 Test Item Value Reference Range Interpretation Comments eGFR (test code = eGFR) 32 [facility]2016-12-25 11:03:00 Test Item Value Reference Range Interpretation Comments Chloride Lvl (test code = Chloride Lvl) 101 95-109 [facility]2016-12-25 11:03:00 Test Item Value Reference Range Interpretation Comments Potassium Lvl (test code = Potassium 4.4 3.5-5.1 Lvl) [facility]2016-12-25 11:03:00 Test Item Value Reference Range Interpretation Comments BUN (test code = BUN) 37 7-22 [facility]2016-12-25 11:03:00 Test Item Value Reference Range Interpretation Comments Glucose Lvl (test code = Glucose Lvl) 119 70-99 [facility]2016-12-25 11:03:00 Test Item Value Reference Range Interpretation Comments Creatinine Lvl (test code = Creatinine 2.00 0.50-1.40 Lvl) [facility]2016-12-25 11:03:00 Test Item Value Reference Range Interpretation Comments Sodium Lvl (test code = Sodium Lvl) 142 135-145 [facility]2016-12-25 11:03:00 Test Item Value Reference Range Interpretation Comments Calcium Lvl (test code = Calcium Lvl) 8.7 8.5-10.5 [facility]2016-12-25 11:03:00 Test Item Value Reference Range Interpretation Comments CO2 (test code = CO2) 32 24-32 [facility]2016-12-25 11:03:00 Test Item Value Reference Range Interpretation Comments AGAP (test code = AGAP) 13.4 10.0-20.0 [facility]YploaexSTVOPNBFRM0653-51-53 11:03:00 Test Item Value Reference Range Interpretation Comments Eosinophils (test code = 10.3 See_Comment [A utomated message] The Eosinophils) system which ge nerated this result tra nsmitted reference range : <=4.0. The reference r leo was not used to int erpret this result as normal/abnormal . [facility] StationXoazykgQRGFBHMKUO8348-28-45 11:03:00 Test Item Value Reference Range Interpretation Comments Basophils # (test code 0.1 See_Comment [Aut omated message] The = Basophils #) system which generated this result tra nsmitted reference range : <=0.2. The reference r leo was not used to int erpret this result as normal/abnormal . [facility] StationEsjgdifHUNPAYOGVB7247-30-65 11:03:00 Test Item Value Reference Range Interpretation Comments Eosinophils # (test code 0.5 See_Comment [A utomated message] The = Eosinophils #) system whic h generated this result tra nsmitted reference range : <=0.5. The reference r leo was not used to int erpret this result as normal/abnormal . [facility] StationZeirtloAZOFFMNTOL6421-76-26 11:03:00 Test Item Value Reference Range Interpretation Comments Monocytes # (test code 0.5 See_Comment [Aut omated message] The = Monocytes #) system which generated this result tra nsmitted reference range : <=0.8. The reference r leo was not used to int erpret this result as normal/abnormal . [facility] StationSvbqvgfALGXOTJZJN9778-40-59 11:03:00 Test Item Value Reference Range Interpretation Comments Segs-Bands # (test code = Segs-Bands #) 2.1 1.5-8.1 [facility] StationJrwadbpNBKNGSCJCV5816-50-09 11:03:00 Test Item Value Reference Range Interpretation Comments Basophils (test code = 1.2 See_Comment [Aut omated message] The Basophils) system which ge nerated this result tra nsmitted reference range : <=1.0. The reference r leo was not used to int erpret this result as normal/abnormal . [facility] StationGznmstfFBHVEBHHEQ3999-10-04 11:03:00 Test Item Value Reference Range Interpretation Comments Lymphocytes # (test code = Lymphocytes 1.9 1.0-5.5 #) [facility] StationKmalvzkTAXDMAKNSU9114-63-35 11:03:00 Test Item Value Reference Range Interpretation Comments Segs (test code = Segs) 42.5 45.0-75.0 [facility] StationWbovpypGHUNTWDFCE6749-75-26 11:03:00 Test Item Value Reference Range Interpretation Comments Lymphocytes (test code = Lymphocytes) 37.0 20.0-40.0 [facility]BppcstmXBIRERZMJK2380-27-55 11:03:00 Test Item Value Reference Range Interpretation Comments Monocytes (test code = Monocytes) 9.0 2.0-12.0 [facility] StationHzmvqsaPPAGMYTDXP2351-99-21 11:03:00 Test Item Value Reference Range Interpretation Comments MPV (test code = MPV) 9.8 7.4-10.4 [facility] StationZvgdybtHUIJBUEKDR3892-56-66 11:03:00 Test Item Value Reference Range Interpretation Comments WBC (test code = WBC) 5.0 3.7-10.4 [facility] StationAmxgbwrGNAFATPRGT1397-10-43 11:03:00 Test Item Value Reference Range Interpretation Comments RBC (test code = RBC) 3.57 4.20-5.40 [facility] StationBnknjbeYPLOTGZLEC7579-20-81 11:03:00 Test Item Value Reference Range Interpretation Comments Hgb (test code = Hgb) 9.4 12.0-16.0 [facility] StationLleprdaTPPMTHSCGX9272-13-65 11:03:00 Test Item Value Reference Range Interpretation Comments Hct (test code = Hct) 28.5 36.0-48.0 [facility] StationXgfaittNROKVALEVO5386-48-31 11:03:00 Test Item Value Reference Range Interpretation Comments Platelet (test code = Platelet) 183 133-450 [facility] StationOlmgihvQYOHRTADOD3240-89-24 11:03:00 Test Item Value Reference Range Interpretation Comments MCV (test code = MCV) 79.9 80.0-98.0 [facility] StationTjvcnqdLJDPBIDTZS2139-13-14 11:03:00 Test Item Value Reference Range Interpretation Comments MCH (test code = MCH) 26.3 pg 27.0-31.0 [facility] StationPnrmwpjKOVKQSMWGU9147-12-55 11:03:00 Test Item Value Reference Range Interpretation Comments MCHC (test code = MCHC) 33.0 32.0-36.0 [facility] StationVwmfnoyDYIEGQUYLX1833-82-79 11:03:00 Test Item Value Reference Range Interpretation Comments RDW (test code = RDW) 15.9 11.5-14.5 [facility]2016-12-25 11:03:00 Test Item Value Reference Range Interpretation Comments Phosphorus (test code = Phosphorus) 4.8 2.5-4.5 [facility]2016-12-25 11:03:00 Test Item Value Reference Range Interpretation Comments Magnesium Lvl (test code = Magnesium 2.0 1.8-2.4 Lvl) [facility]2016-12-25 11:03:00 Test Item Value Reference Range Interpretation Comments eGFR (test code = eGFR) 32 [facility]2016-12-25 11:03:00 Test Item Value Reference Range Interpretation Comments Chloride Lvl (test code = Chloride Lvl) 101 95-109 [facility]2016-12-25 11:03:00 Test Item Value Reference Range Interpretation Comments Potassium Lvl (test code = Potassium 4.4 3.5-5.1 Lvl) [facility]2016-12-25 11:03:00 Test Item Value Reference Range Interpretation Comments BUN (test code = BUN) 37 7-22 [facility]2016-12-25 11:03:00 Test Item Value Reference Range Interpretation Comments Glucose Lvl (test code = Glucose Lvl) 119 70-99 [facility]2016-12-25 11:03:00 Test Item Value Reference Range Interpretation Comments Creatinine Lvl (test code = Creatinine 2.00 0.50-1.40 Lvl) [facility]2016-12-25 11:03:00 Test Item Value Reference Range Interpretation Comments Sodium Lvl (test code = Sodium Lvl) 142 135-145 [facility]2016-12-25 11:03:00 Test Item Value Reference Range Interpretation Comments Calcium Lvl (test code = Calcium Lvl) 8.7 8.5-10.5 [facility]2016-12-25 11:03:00 Test Item Value Reference Range Interpretation Comments CO2 (test code = CO2) 32 24-32 [facility]2016-12-25 11:03:00 Test Item Value Reference Range Interpretation Comments AGAP (test code = AGAP) 13.4 10.0-20.0 [facility]henEBBTOBSDHK2042-81-39 11:03:00 Test Item Value Reference Range Interpretation Comments Eosinophils (test code = 10.3 See_Comment [A utomated message] The Eosinophils) system which ge nerated this result tra nsmitted reference range : <=4.0. The reference r leo was not used to int erpret this result as normal/abnormal . [facility] StationIawarmxABPMBGITQY4354-71-47 11:03:00 Test Item Value Reference Range Interpretation Comments Basophils # (test code 0.1 See_Comment [Aut omated message] The = Basophils #) system which generated this result tra nsmitted reference range : <=0.2. The reference r leo was not used to int erpret this result as normal/abnormal . [facility] StationZfykcpiJIPBZEUURR4719-52-61 11:03:00 Test Item Value Reference Range Interpretation Comments Eosinophils # (test code 0.5 See_Comment [A utomated message] The = Eosinophils #) system whic h generated this result tra nsmitted reference range : <=0.5. The reference r leo was not used to int erpret this result as normal/abnormal . [facility] StationGhfjksnUFZCUYDLRX5954-20-51 11:03:00 Test Item Value Reference Range Interpretation Comments Monocytes # (test code 0.5 See_Comment [Aut omated message] The = Monocytes #) system which generated this result tra nsmitted reference range : <=0.8. The reference r leo was not used to int erpret this result as normal/abnormal . [facility] StationPmxbywfEOITIIPLLF5643-54-60 11:03:00 Test Item Value Reference Range Interpretation Comments Segs-Bands # (test code = Segs-Bands #) 2.1 1.5-8.1 [facility] StationGqbeulqCEIKMHEMAW1445-15-27 11:03:00 Test Item Value Reference Range Interpretation Comments Basophils (test code = 1.2 See_Comment [Aut omated message] The Basophils) system which ge nerated this result tra nsmitted reference range : <=1.0. The reference r leo was not used to int erpret this result as normal/abnormal . [facility] StationEgnjefvIAUKCAPYEC3358-47-53 11:03:00 Test Item Value Reference Range Interpretation Comments Lymphocytes # (test code = Lymphocytes 1.9 1.0-5.5 #) [facility] StationLunhikoPCAUPJAHOW2453-83-85 11:03:00 Test Item Value Reference Range Interpretation Comments Segs (test code = Segs) 42.5 45.0-75.0 [facility] StationNdpfesnKFBWDALMNU2544-73-73 11:03:00 Test Item Value Reference Range Interpretation Comments Lymphocytes (test code = Lymphocytes) 37.0 20.0-40.0 [facility] StationHjbmouiMGQFNKVWDB2501-66-96 11:03:00 Test Item Value Reference Range Interpretation Comments Monocytes (test code = Monocytes) 9.0 2.0-12.0 [facility] StationUodbdymUXKFDPMSMN8805-95-82 11:03:00 Test Item Value Reference Range Interpretation Comments MPV (test code = MPV) 9.8 7.4-10.4 [facility] StationTouorowXFARQQJTSM3382-09-41 11:03:00 Test Item Value Reference Range Interpretation Comments WBC (test code = WBC) 5.0 3.7-10.4 [facility] StationIcqdpfzCKQLULUWHK5337-56-48 11:03:00 Test Item Value Reference Range Interpretation Comments RBC (test code = RBC) 3.57 4.20-5.40 [facility] StationEtkbouxIWAROTEYBL3801-08-35 11:03:00 Test Item Value Reference Range Interpretation Comments Hgb (test code = Hgb) 9.4 12.0-16.0 [facility] StationLcdwjidLWCRNCZBPF7216-16-73 11:03:00 Test Item Value Reference Range Interpretation Comments Hct (test code = Hct) 28.5 36.0-48.0 [facility] StationRxtuvugMDQVJAMNJK1635-86-44 11:03:00 Test Item Value Reference Range Interpretation Comments Platelet (test code = Platelet) 183 133-450 [facility] StationOboyifmJLNRBZLFGH6715-24-69 11:03:00 Test Item Value Reference Range Interpretation Comments MCV (test code = MCV) 79.9 80.0-98.0 [facility] StationBgpktgqQVXQDIJWBT8683-74-92 11:03:00 Test Item Value Reference Range Interpretation Comments MCH (test code = MCH) 26.3 pg 27.0-31.0 [facility] StationQglmnglFSGNHUMOVE3363-71-20 11:03:00 Test Item Value Reference Range Interpretation Comments MCHC (test code = MCHC) 33.0 32.0-36.0 [facility] StationGsdrksbKPFZKHHYXP8805-02-89 11:03:00 Test Item Value Reference Range Interpretation Comments RDW (test code = RDW) 15.9 11.5-14.5 [facility]CHEM DYYZD6928-15-22 11:03:00 Test Item Value Reference Range Interpretation Comments Phosphorus (test code = Phosphorus) 4.8 2.5-4.5 [facility]2016-12-25 11:03:00 Test Item Value Reference Range Interpretation Comments Magnesium Lvl (test code = Magnesium 2.0 1.8-2.4 Lvl) [facility]2016-12-25 11:03:00 Test Item Value Reference Range Interpretation Comments eGFR (test code = eGFR) 32 [facility]2016-12-25 11:03:00 Test Item Value Reference Range Interpretation Comments Chloride Lvl (test code = Chloride Lvl) 101 95-109 [facility]2016-12-25 11:03:00 Test Item Value Reference Range Interpretation Comments Potassium Lvl (test code = Potassium 4.4 3.5-5.1 Lvl) [facility]2016-12-25 11:03:00 Test Item Value Reference Range Interpretation Comments BUN (test code = BUN) 37 7-22 [facility]2016-12-25 11:03:00 Test Item Value Reference Range Interpretation Comments Glucose Lvl (test code = Glucose Lvl) 119 70-99 [facility]2016-12-25 11:03:00 Test Item Value Reference Range Interpretation Comments Creatinine Lvl (test code = Creatinine 2.00 0.50-1.40 Lvl) [facility]2016-12-25 11:03:00 Test Item Value Reference Range Interpretation Comments Sodium Lvl (test code = Sodium Lvl) 142 135-145 [facility]2016-12-25 11:03:00 Test Item Value Reference Range Interpretation Comments Calcium Lvl (test code = Calcium Lvl) 8.7 8.5-10.5 [facility]2016-12-25 11:03:00 Test Item Value Reference Range Interpretation Comments CO2 (test code = CO2) 32 24-32 [facility]2016-12-25 11:03:00 Test Item Value Reference Range Interpretation Comments AGAP (test code = AGAP) 13.4 10.0-20.0 [facility] HospitalUmasqywXXLXSVICCT3203-55-68 11:03:00 Test Item Value Reference Range Interpretation Comments Eosinophils (test code = 10.3 See_Comment [A utomated message] The Eosinophils) system which ge nerated this result tra nsmitted reference range : <=4.0. The reference r leo was not used to int erpret this result as normal/abnormal . [facility] StationVntrtdkGIZRLWBHHZ9729-63-97 11:03:00 Test Item Value Reference Range Interpretation Comments Basophils # (test code 0.1 See_Comment [Aut omated message] The = Basophils #) system which generated this result tra nsmitted reference range : <=0.2. The reference r leo was not used to int erpret this result as normal/abnormal . [facility] StationPuqnzqlRZBESWYIDV9895-83-78 11:03:00 Test Item Value Reference Range Interpretation Comments Eosinophils # (test code 0.5 See_Comment [A utomated message] The = Eosinophils #) system whic h generated this result tra nsmitted reference range : <=0.5. The reference r leo was not used to int erpret this result as normal/abnormal . [facility] StationPrjbatrCCDERSTBMC1430-45-10 11:03:00 Test Item Value Reference Range Interpretation Comments Monocytes # (test code 0.5 See_Comment [Aut omated message] The = Monocytes #) system which generated this result tra nsmitted reference range : <=0.8. The reference r leo was not used to int erpret this result as normal/abnormal . [facility] StationHfwzbzwKBJMWOLNHA2106-28-09 11:03:00 Test Item Value Reference Range Interpretation Comments Segs-Bands # (test code = Segs-Bands #) 2.1 1.5-8.1 [facility] StationEhpagenRGQIHMQTBW5750-19-72 11:03:00 Test Item Value Reference Range Interpretation Comments Basophils (test code = 1.2 See_Comment [Aut omated message] The Basophils) system which ge nerated this result tra nsmitted reference range : <=1.0. The reference r leo was not used to int erpret this result as normal/abnormal . [facility] StationGqodztzARFGNASHSI8805-60-18 11:03:00 Test Item Value Reference Range Interpretation Comments Lymphocytes # (test code = Lymphocytes 1.9 1.0-5.5 #) [facility] StationUyygncjDLTLZTABYH3339-22-88 11:03:00 Test Item Value Reference Range Interpretation Comments Segs (test code = Segs) 42.5 45.0-75.0 [facility] StationAutlfndUULBQFBSVM4352-70-48 11:03:00 Test Item Value Reference Range Interpretation Comments Lymphocytes (test code = Lymphocytes) 37.0 20.0-40.0 [facility] StationOixepsmWKAKTMJWMX0486-91-31 11:03:00 Test Item Value Reference Range Interpretation Comments Monocytes (test code = Monocytes) 9.0 2.0-12.0 [facility] StationPoqemwbJQCCBTJAJV5313-88-28 11:03:00 Test Item Value Reference Range Interpretation Comments MPV (test code = MPV) 9.8 7.4-10.4 [facility] StationPioveciYBHPLQTFRW1267-67-13 11:03:00 Test Item Value Reference Range Interpretation Comments WBC (test code = WBC) 5.0 3.7-10.4 [facility] StationCfjgmfxDCCNOGKVPZ7621-57-03 11:03:00 Test Item Value Reference Range Interpretation Comments RBC (test code = RBC) 3.57 4.20-5.40 [facility] StationDgbsblbSOUQQQBWHH8612-92-22 11:03:00 Test Item Value Reference Range Interpretation Comments Hgb (test code = Hgb) 9.4 12.0-16.0 [facility] StationUudjzdsXXKIAVFDIO0123-27-54 11:03:00 Test Item Value Reference Range Interpretation Comments Hct (test code = Hct) 28.5 36.0-48.0 [facility] StationLbbxvetFFBAEYKKSH5578-68-23 11:03:00 Test Item Value Reference Range Interpretation Comments Platelet (test code = Platelet) 183 133-450 [facility] StationWsufratQKUHYKHNUB3520-84-49 11:03:00 Test Item Value Reference Range Interpretation Comments MCV (test code = MCV) 79.9 80.0-98.0 [facility] StationZdphieeRQRJOKOYOV2026-64-15 11:03:00 Test Item Value Reference Range Interpretation Comments MCH (test code = MCH) 26.3 pg 27.0-31.0 [facility] StationNutjnmsGIURPWOXQN0928-24-42 11:03:00 Test Item Value Reference Range Interpretation Comments MCHC (test code = MCHC) 33.0 32.0-36.0 [facility] StationEbtyadsNDKOYXKCZI1538-20-74 11:03:00 Test Item Value Reference Range Interpretation Comments RDW (test code = RDW) 15.9 11.5-14.5 [facility]2016-12-25 11:03:00 Test Item Value Reference Range Interpretation Comments Phosphorus (test code = Phosphorus) 4.8 2.5-4.5 [facility]2016-12-25 11:03:00 Test Item Value Reference Range Interpretation Comments Magnesium Lvl (test code = Magnesium 2.0 1.8-2.4 Lvl) [facility]2016-12-25 11:03:00 Test Item Value Reference Range Interpretation Comments eGFR (test code = eGFR) 32 [facility]2016-12-25 11:03:00 Test Item Value Reference Range Interpretation Comments Chloride Lvl (test code = Chloride Lvl) 101 95-109 [facility]2016-12-25 11:03:00 Test Item Value Reference Range Interpretation Comments Potassium Lvl (test code = Potassium 4.4 3.5-5.1 Lvl) [facility]2016-12-25 11:03:00 Test Item Value Reference Range Interpretation Comments BUN (test code = BUN) 37 7-22 [facility]2016-12-25 11:03:00 Test Item Value Reference Range Interpretation Comments Glucose Lvl (test code = Glucose Lvl) 119 70-99 [facility]2016-12-25 11:03:00 Test Item Value Reference Range Interpretation Comments Creatinine Lvl (test code = Creatinine 2.00 0.50-1.40 Lvl) [facility]2016-12-25 11:03:00 Test Item Value Reference Range Interpretation Comments Sodium Lvl (test code = Sodium Lvl) 142 135-145 [facility]2016-12-25 11:03:00 Test Item Value Reference Range Interpretation Comments Calcium Lvl (test code = Calcium Lvl) 8.7 8.5-10.5 [facility]2016-12-25 11:03:00 Test Item Value Reference Range Interpretation Comments CO2 (test code = CO2) 32 24-32 [facility]2016-12-25 11:03:00 Test Item Value Reference Range Interpretation Comments AGAP (test code = AGAP) 13.4 10.0-20.0 [facility]IgbnyjpFIJYRZSNVA5412-74-31 11:03:00 Test Item Value Reference Range Interpretation Comments Eosinophils (test code = 10.3 See_Comment [A utomated message] The Eosinophils) system which ge nerated this result tra nsmitted reference range : <=4.0. The reference r leo was not used to int erpret this result as normal/abnormal . [facility] StationIyyipkaKRWQSGSIHW9497-49-09 11:03:00 Test Item Value Reference Range Interpretation Comments Basophils # (test code 0.1 See_Comment [Aut omated message] The = Basophils #) system which generated this result tra nsmitted reference range : <=0.2. The reference r leo was not used to int erpret this result as normal/abnormal . [facility] StationFnwzpsbIVPTPYLWPT7372-50-84 11:03:00 Test Item Value Reference Range Interpretation Comments Eosinophils # (test code 0.5 See_Comment [A utomated message] The = Eosinophils #) system whic h generated this result tra nsmitted reference range : <=0.5. The reference r leo was not used to int erpret this result as normal/abnormal . [facility] StationJjcocnkRBOXOMXEZG2888-22-20 11:03:00 Test Item Value Reference Range Interpretation Comments Monocytes # (test code 0.5 See_Comment [Aut omated message] The = Monocytes #) system which generated this result tra nsmitted reference range : <=0.8. The reference r leo was not used to int erpret this result as normal/abnormal . [facility] StationVfeekvuWGNZDOVYSV0763-21-15 11:03:00 Test Item Value Reference Range Interpretation Comments Segs-Bands # (test code = Segs-Bands #) 2.1 1.5-8.1 [facility] StationKpfumieLHAMKTEOAA4724-73-04 11:03:00 Test Item Value Reference Range Interpretation Comments Basophils (test code = 1.2 See_Comment [Aut omated message] The Basophils) system which ge nerated this result tra nsmitted reference range : <=1.0. The reference r leo was not used to int erpret this result as normal/abnormal . [facility] StationApyddseANWXXAXONT7362-28-59 11:03:00 Test Item Value Reference Range Interpretation Comments Lymphocytes # (test code = Lymphocytes 1.9 1.0-5.5 #) [facility] StationEcavcklRBBBTOPITD3820-61-32 11:03:00 Test Item Value Reference Range Interpretation Comments Segs (test code = Segs) 42.5 45.0-75.0 [facility] StationCttofftMHGQUSNCFV3334-36-88 11:03:00 Test Item Value Reference Range Interpretation Comments Lymphocytes (test code = Lymphocytes) 37.0 20.0-40.0 [facility] StationLgksnhiMECJNXSUUL2639-29-24 11:03:00 Test Item Value Reference Range Interpretation Comments Monocytes (test code = Monocytes) 9.0 2.0-12.0 [facility] StationCkpsmsdJFQHRQBAXQ3862-07-74 11:03:00 Test Item Value Reference Range Interpretation Comments MPV (test code = MPV) 9.8 7.4-10.4 [facility] StationYdrdjxuTEVNCCAHQF9189-36-69 11:03:00 Test Item Value Reference Range Interpretation Comments WBC (test code = WBC) 5.0 3.7-10.4 [facility] StationLnclnprUGTBJHIOLG6094-04-83 11:03:00 Test Item Value Reference Range Interpretation Comments RBC (test code = RBC) 3.57 4.20-5.40 [facility] StationVulbiqjVJRFKDWYOX1596-05-46 11:03:00 Test Item Value Reference Range Interpretation Comments Hgb (test code = Hgb) 9.4 12.0-16.0 [facility] StationBneznpcQWQCNFKASO4517-22-57 11:03:00 Test Item Value Reference Range Interpretation Comments Hct (test code = Hct) 28.5 36.0-48.0 [facility] StationDldvtivPMIBDIBBSE7775-85-43 11:03:00 Test Item Value Reference Range Interpretation Comments Platelet (test code = Platelet) 183 133-450 [facility] StationGldormnDSRIZBTIDA3168-44-07 11:03:00 Test Item Value Reference Range Interpretation Comments MCV (test code = MCV) 79.9 80.0-98.0 [facility] StationXxysgrtHGGHREMJHE1779-32-20 11:03:00 Test Item Value Reference Range Interpretation Comments MCH (test code = MCH) 26.3 pg 27.0-31.0 [facility] StationFixdtemYEIDHSIFFC8111-51-48 11:03:00 Test Item Value Reference Range Interpretation Comments MCHC (test code = MCHC) 33.0 32.0-36.0 [facility] StationMdldhouVPVPQZRRUG6656-27-94 11:03:00 Test Item Value Reference Range Interpretation Comments RDW (test code = RDW) 15.9 11.5-14.5 [facility] PAXL0041-05-87 10:26:00 Test Item Value Reference Range Interpretation Comments U Prot/Creat (test code = U Prot/Creat) 6.9 [facility] JNUJ5918-81-93 10:26:00 Test Item Value Reference Range Interpretation Comments U Creatinine (test code = U Creatinine) 19.30 [facility]2016-12-24 10:26:00 Test Item Value Reference Range Interpretation Comments U Protein (test code = U Protein) 133.1 [facility]2016-12-24 10:26:00 Test Item Value Reference Range Interpretation Comments U Prot/Creat (test code = U Prot/Creat) 6.9 [facility]2016-12-24 10:26:00 Test Item Value Reference Range Interpretation Comments U Creatinine (test code = U Creatinine) 19.30 [facility]2016-12-24 10:26:00 Test Item Value Reference Range Interpretation Comments U Protein (test code = U Protein) 133.1 [facility]2016-12-24 10:26:00 Test Item Value Reference Range Interpretation Comments U Prot/Creat (test code = U Prot/Creat) 6.9 [facility]2016-12-24 10:26:00 Test Item Value Reference Range Interpretation Comments U Creatinine (test code = U Creatinine) 19.30 [facility]2016-12-24 10:26:00 Test Item Value Reference Range Interpretation Comments U Protein (test code = U Protein) 133.1 [facility]2016-12-24 10:26:00 Test Item Value Reference Range Interpretation Comments U Prot/Creat (test code = U Prot/Creat) 6.9 [facility]2016-12-24 10:26:00 Test Item Value Reference Range Interpretation Comments U Creatinine (test code = U Creatinine) 19.30 [facility]2016-12-24 10:26:00 Test Item Value Reference Range Interpretation Comments U Protein (test code = U Protein) 133.1 [facility]2016-12-24 10:26:00 Test Item Value Reference Range Interpretation Comments U Prot/Creat (test code = U Prot/Creat) 6.9 [facility]2016-12-24 10:26:00 Test Item Value Reference Range Interpretation Comments U Creatinine (test code = U Creatinine) 19.30 [facility]2016-12-24 10:26:00 Test Item Value Reference Range Interpretation Comments U Protein (test code = U Protein) 133.1 [facility] StationAmxwxmeRJOFBVUAKU7983-34-99 09:20:00 Test Item Value Reference Range Interpretation Comments MPV (test code = MPV) 9.7 7.4-10.4 [facility] StationJabqemrJQPRENQKNM7624-78-07 09:20:00 Test Item Value Reference Range Interpretation Comments Platelet (test code = Platelet) 184 133-450 [facility] StationLwdsxlhFHZJHNPSJG3129-88-85 09:20:00 Test Item Value Reference Range Interpretation Comments RDW (test code = RDW) 15.9 11.5-14.5 [place] 545586-12-24 09:20:00 Test Item Value Reference Range Interpretation Comments MCV (test code = MCV) 79.3 80.0-98.0 [facility] StationDzatcwnGOJJKGJQBN8204-94-00 09:20:00 Test Item Value Reference Range Interpretation Comments MCHC (test code = MCHC) 33.0 32.0-36.0 [facility] [facility] StationBbzbgbtCEOXHEXSGZ9187-43-23 09:20:00 Test Item Value Reference Range Interpretation Comments MCH (test code = MCH) 26.2 pg 27.0-31.0 [facility] StationYjuddlvQQKHYMVYVF2860-17-48 09:20:00 Test Item Value Reference Range Interpretation Comments Hct (test code = Hct) 29.4 36.0-48.0 [facility] StationXpqprwoXOHISFHDAA3701-02-14 09:20:00 Test Item Value Reference Range Interpretation Comments Hgb (test code = Hgb) 9.7 12.0-16.0 [facility] StationFvvjvtoHQTRVRKISI0249-87-35 09:20:00 Test Item Value Reference Range Interpretation Comments RBC (test code = RBC) 3.70 4.20-5.40 [facility] StationIxeypyuQBJKTCDNDS7860-83-27 09:20:00 Test Item Value Reference Range Interpretation Comments WBC (test code = WBC) 5.7 3.7-10.4 [facility] StationEzigwqsDYCNONENGY0041-15-26 09:20:00 Test Item Value Reference Range Interpretation Comments Basophils # (test code 0.1 See_Comment [Aut omated message] The = Basophils #) system which generated this result tra nsmitted reference range : <=0.2. The reference r leo was not used to int erpret this result as normal/abnormal . [facility] StationEmjngrnWINAGFQNOT7651-65-64 09:20:00 Test Item Value Reference Range Interpretation Comments Lymphocytes # (test code = Lymphocytes 2.2 1.0-5.5 #) [facility] StationVwfdhdlVUQAOVRHRN6319-63-01 09:20:00 Test Item Value Reference Range Interpretation Comments Eosinophils # (test code 0.5 See_Comment [A utomated message] The = Eosinophils #) system whic h generated this result tra nsmitted reference range : <=0.5. The reference r leo was not used to int erpret this result as normal/abnormal . [facility] StationDhzqkfgZPEOSZITVM1357-00-12 09:20:00 Test Item Value Reference Range Interpretation Comments Monocytes # (test code 0.5 See_Comment [Aut omated message] The = Monocytes #) system which generated this result tra nsmitted reference range : <=0.8. The reference r leo was not used to int erpret this result as normal/abnormal . [facility] StationEtppiexUQTXPLNAZN9319-86-55 09:20:00 Test Item Value Reference Range Interpretation Comments Basophils (test code = 1.1 See_Comment [Aut omated message] The Basophils) system which ge nerated this result tra nsmitted reference range : <=1.0. The reference r leo was not used to int erpret this result as normal/abnormal . [facility] StationYjmxpbxTCSZCKZCJI1469-95-04 09:20:00 Test Item Value Reference Range Interpretation Comments Segs-Bands # (test code = Segs-Bands #) 2.3 1.5-8.1 [facility] StationFbvrskqXLDHSTKDAC6989-26-22 09:20:00 Test Item Value Reference Range Interpretation Comments Eosinophils (test code = 9.5 See_Comment [A utomated message] The Eosinophils) system which ge nerated this result tra nsmitted reference range : <=4.0. The reference r leo was not used to int erpret this result as normal/abnormal . [facility] StationFjjvhxhOEPYCTQWAR6792-88-45 09:20:00 Test Item Value Reference Range Interpretation Comments Monocytes (test code = Monocytes) 9.0 2.0-12.0 [facility] StationHbrezpfBRCEHDGYLG5499-65-52 09:20:00 Test Item Value Reference Range Interpretation Comments Lymphocytes (test code = Lymphocytes) 38.9 20.0-40.0 [facility] StationTitsatoXWXJLPMOLQ6286-65-68 09:20:00 Test Item Value Reference Range Interpretation Comments Segs (test code = Segs) 41.5 45.0-75.0 [facility] StationKguyuhrSCWEESHHPY9800-93-11 09:20:00 Test Item Value Reference Range Interpretation Comments MPV (test code = MPV) 9.7 7.4-10.4 [facility] StationOygrfjdJPTPPQLYCX4484-20-05 09:20:00 Test Item Value Reference Range Interpretation Comments Platelet (test code = Platelet) 184 133-450 [facility] StationQhdrtihAOSFFPSTZU0349-06-22 09:20:00 Test Item Value Reference Range Interpretation Comments RDW (test code = RDW) 15.9 11.5-14.5 [facility] StationUruclkwMCTYKMECWE2880-79-99 09:20:00 Test Item Value Reference Range Interpretation Comments MCV (test code = MCV) 79.3 80.0-98.0 [facility] StationRocnhdhLFSYBBKQPT2130-59-37 09:20:00 Test Item Value Reference Range Interpretation Comments MCHC (test code = MCHC) 33.0 32.0-36.0 [facility] StationBxvrdfxWJEDPRABUZ7263-51-07 09:20:00 Test Item Value Reference Range Interpretation Comments MCH (test code = MCH) 26.2 pg 27.0-31.0 [facility] StationQrelrcsJFECJZDDPF9162-29-03 09:20:00 Test Item Value Reference Range Interpretation Comments Hct (test code = Hct) 29.4 36.0-48.0 [facility] StationSjctrhuMVIATYDJQU9232-29-45 09:20:00 Test Item Value Reference Range Interpretation Comments Hgb (test code = Hgb) 9.7 12.0-16.0 [facility] StationYbavigyNAABDMWANK2414-42-77 09:20:00 Test Item Value Reference Range Interpretation Comments RBC (test code = RBC) 3.70 4.20-5.40 [facility] StationWkncmiuGAITNDFAJS8115-27-25 09:20:00 Test Item Value Reference Range Interpretation Comments WBC (test code = WBC) 5.7 3.7-10.4 [facility] StationCralswwQCNRGRZFIR8921-12-25 09:20:00 Test Item Value Reference Range Interpretation Comments Basophils # (test code 0.1 See_Comment [Aut omated message] The = Basophils #) system which generated this result tra nsmitted reference range : <=0.2. The reference r leo was not used to int erpret this result as normal/abnormal . [facility] StationGfyuujyTHFGQCKJAS7098-23-41 09:20:00 Test Item Value Reference Range Interpretation Comments Lymphocytes # (test code = Lymphocytes 2.2 1.0-5.5 #) [facility] StationDqiblzzXWXMODBWSF8524-42-33 09:20:00 Test Item Value Reference Range Interpretation Comments Eosinophils # (test code 0.5 See_Comment [A utomated message] The = Eosinophils #) system whic h generated this result tra nsmitted reference range : <=0.5. The reference r leo was not used to int erpret this result as normal/abnormal . [facility] StationWypdbwsYBZNWVDNEA4915-24-28 09:20:00 Test Item Value Reference Range Interpretation Comments Monocytes # (test code 0.5 See_Comment [Aut omated message] The = Monocytes #) system which generated this result tra nsmitted reference range : <=0.8. The reference r leo was not used to int erpret this result as normal/abnormal . [facility] StationVrhbujcDWEHMYUEKI5819-30-00 09:20:00 Test Item Value Reference Range Interpretation Comments Basophils (test code = 1.1 See_Comment [Aut omated message] The Basophils) system which ge nerated this result tra nsmitted reference range : <=1.0. The reference r leo was not used to int erpret this result as normal/abnormal . [facility] StationNjdjhyuHVVYTCAKYP0406-64-18 09:20:00 Test Item Value Reference Range Interpretation Comments Segs-Bands # (test code = Segs-Bands #) 2.3 1.5-8.1 [facility] StationLeuegvsLSNICEJXZV4097-46-22 09:20:00 Test Item Value Reference Range Interpretation Comments Eosinophils (test code = 9.5 See_Comment [A utomated message] The Eosinophils) system which ge nerated this result tra nsmitted reference range : <=4.0. The reference r leo was not used to int erpret this result as normal/abnormal . [facility] StationNgtdzneFHGTMKTZXI8901-60-74 09:20:00 Test Item Value Reference Range Interpretation Comments Monocytes (test code = Monocytes) 9.0 2.0-12.0 [facility] StationZsowmckGZROZLCQBJ2808-60-89 09:20:00 Test Item Value Reference Range Interpretation Comments Lymphocytes (test code = Lymphocytes) 38.9 20.0-40.0 [facility] StationVgmcdliVOFZTXLUCK2685-74-37 09:20:00 Test Item Value Reference Range Interpretation Comments Segs (test code = Segs) 41.5 45.0-75.0 [facility] StationEaklaprHWXHZJZLYS7935-73-29 09:20:00 Test Item Value Reference Range Interpretation Comments MPV (test code = MPV) 9.7 7.4-10.4 [facility] StationKzuezgjMSNBTRZIDL4663-19-60 09:20:00 Test Item Value Reference Range Interpretation Comments Platelet (test code = Platelet) 184 133-450 [facility] StationHknxogwPHVEBLOBEJ8991-90-05 09:20:00 Test Item Value Reference Range Interpretation Comments RDW (test code = RDW) 15.9 11.5-14.5 [facility] StationLgoizckYOXIDXYHHV7985-02-50 09:20:00 Test Item Value Reference Range Interpretation Comments MCV (test code = MCV) 79.3 80.0-98.0 [facility] StationDecouxqEGOPLNQJQP6073-64-24 09:20:00 Test Item Value Reference Range Interpretation Comments MCHC (test code = MCHC) 33.0 32.0-36.0 [facility] StationCftzoyzSFHLEAKDHR4888-89-46 09:20:00 Test Item Value Reference Range Interpretation Comments MCH (test code = MCH) 26.2 pg 27.0-31.0 [facility] StationUagahcyJEWFETGMVJ6059-41-57 09:20:00 Test Item Value Reference Range Interpretation Comments Hct (test code = Hct) 29.4 36.0-48.0 [facility] StationGlnjlclBSRBWTJBML7400-05-89 09:20:00 Test Item Value Reference Range Interpretation Comments Hgb (test code = Hgb) 9.7 12.0-16.0 [facility] StationXjvaxxzAYAPBJETWX8875-14-44 09:20:00 Test Item Value Reference Range Interpretation Comments RBC (test code = RBC) 3.70 4.20-5.40 [facility] StationEfbfwojIKPFGKYBBO2622-07-76 09:20:00 Test Item Value Reference Range Interpretation Comments WBC (test code = WBC) 5.7 3.7-10.4 [facility] StationSabeifyFTBFEIRCGA6329-88-79 09:20:00 Test Item Value Reference Range Interpretation Comments Basophils # (test code 0.1 See_Comment [Aut omated message] The = Basophils #) system which generated this result tra nsmitted reference range : <=0.2. The reference r leo was not used to int erpret this result as normal/abnormal . [facility] StationUgslyuzUFGWQHSRBZ6313-14-88 09:20:00 Test Item Value Reference Range Interpretation Comments Lymphocytes # (test code = Lymphocytes 2.2 1.0-5.5 #) [facility] StationLrnviiwXPGVLLWDNG6314-15-63 09:20:00 Test Item Value Reference Range Interpretation Comments Eosinophils # (test code 0.5 See_Comment [A utomated message] The = Eosinophils #) system whic h generated this result tra nsmitted reference range : <=0.5. The reference r leo was not used to int erpret this result as normal/abnormal . [facility] StationLchlzycFMDRRILMEP9347-47-78 09:20:00 Test Item Value Reference Range Interpretation Comments Monocytes # (test code 0.5 See_Comment [Aut omated message] The = Monocytes #) system which generated this result tra nsmitted reference range : <=0.8. The reference r leo was not used to int erpret this result as normal/abnormal . [facility] StationQlnqdbjYZUXHRCGYS1970-09-76 09:20:00 Test Item Value Reference Range Interpretation Comments Basophils (test code = 1.1 See_Comment [Aut omated message] The Basophils) system which ge nerated this result tra nsmitted reference range : <=1.0. The reference r leo was not used to int erpret this result as normal/abnormal . [facility] StationQntnxyrZFWTEQGVGV7094-87-32 09:20:00 Test Item Value Reference Range Interpretation Comments Segs-Bands # (test code = Segs-Bands #) 2.3 1.5-8.1 [facility] StationSzbuqqvMLKVXRITMO7220-65-63 09:20:00 Test Item Value Reference Range Interpretation Comments Eosinophils (test code = 9.5 See_Comment [A utomated message] The Eosinophils) system which ge nerated this result tra nsmitted reference range : <=4.0. The reference r leo was not used to int erpret this result as normal/abnormal . [facility] StationAsranetBERIZGSSFI4695-62-00 09:20:00 Test Item Value Reference Range Interpretation Comments Monocytes (test code = Monocytes) 9.0 2.0-12.0 [place] 545586-12-24 09:20:00 Test Item Value Reference Range Interpretation Comments Lymphocytes (test code = Lymphocytes) 38.9 20.0-40.0 [facility] StationVgcdagjADQJCXRCFS2661-64-49 09:20:00 Test Item Value Reference Range Interpretation Comments Segs (test code = Segs) 41.5 45.0-75.0 [facility] StationLrgljlhBAQMIQIMEQ5032-91-33 09:20:00 Test Item Value Reference Range Interpretation Comments MPV (test code = MPV) 9.7 7.4-10.4 [facility] StationZkpmzeeDNTXQMSSIA6612-98-79 09:20:00 Test Item Value Reference Range Interpretation Comments Platelet (test code = Platelet) 184 133-450 [facility] StationPhawblzAPVQGBASGV0296-28-01 09:20:00 Test Item Value Reference Range Interpretation Comments RDW (test code = RDW) 15.9 11.5-14.5 [facility] StationLyvdyctEGPQERXWRQ3279-37-13 09:20:00 Test Item Value Reference Range Interpretation Comments MCV (test code = MCV) 79.3 80.0-98.0 [facility] StationIjhplrtOPSODLKNKV1742-52-21 09:20:00 Test Item Value Reference Range Interpretation Comments MCHC (test code = MCHC) 33.0 32.0-36.0 [facility] StationBmtqftnYBAHCQPSYA8238-24-98 09:20:00 Test Item Value Reference Range Interpretation Comments MCH (test code = MCH) 26.2 pg 27.0-31.0 [facility] StationWefjcmbTTBNHUJTFX8900-60-43 09:20:00 Test Item Value Reference Range Interpretation Comments Hct (test code = Hct) 29.4 36.0-48.0 [facility] StationBmopxqjNIIPZSSPAP3462-76-22 09:20:00 Test Item Value Reference Range Interpretation Comments Hgb (test code = Hgb) 9.7 12.0-16.0 [facility] StationZioypkvOXHUWJFISD3306-36-42 09:20:00 Test Item Value Reference Range Interpretation Comments RBC (test code = RBC) 3.70 4.20-5.40 [facility] StationQjypcucFUAARKBPYG6217-22-17 09:20:00 Test Item Value Reference Range Interpretation Comments WBC (test code = WBC) 5.7 3.7-10.4 [facility] StationZdyqbzqTXHSZAMVWK8669-69-22 09:20:00 Test Item Value Reference Range Interpretation Comments Basophils # (test code 0.1 See_Comment [Aut omated message] The = Basophils #) system which generated this result tra nsmitted reference range : <=0.2. The reference r leo was not used to int erpret this result as normal/abnormal . [facility] StationCvtglmyJVMLQHTANB9384-03-01 09:20:00 Test Item Value Reference Range Interpretation Comments Lymphocytes # (test code = Lymphocytes 2.2 1.0-5.5 #) [facility] StationSlqscgbZMCDWQXKAY0363-62-26 09:20:00 Test Item Value Reference Range Interpretation Comments Eosinophils # (test code 0.5 See_Comment [A utomated message] The = Eosinophils #) system whic h generated this result tra nsmitted reference range : <=0.5. The reference r leo was not used to int erpret this result as normal/abnormal . [facility] StationAmcrpzuLNFQGJDYTR7996-58-50 09:20:00 Test Item Value Reference Range Interpretation Comments Monocytes # (test code 0.5 See_Comment [Aut omated message] The = Monocytes #) system which generated this result tra nsmitted reference range : <=0.8. The reference r leo was not used to int erpret this result as normal/abnormal . [facility] StationVofjwarDEAGFQASFZ9391-92-15 09:20:00 Test Item Value Reference Range Interpretation Comments Basophils (test code = 1.1 See_Comment [Aut omated message] The Basophils) system which ge nerated this result tra nsmitted reference range : <=1.0. The reference r leo was not used to int erpret this result as normal/abnormal . [facility] StationGhgtuxnJGEFJBVVFO4996-81-00 09:20:00 Test Item Value Reference Range Interpretation Comments Segs-Bands # (test code = Segs-Bands #) 2.3 1.5-8.1 [facility] StationAvsbwvrBQKADRBDET0218-36-35 09:20:00 Test Item Value Reference Range Interpretation Comments Eosinophils (test code = 9.5 See_Comment [A utomated message] The Eosinophils) system which ge nerated this result tra nsmitted reference range : <=4.0. The reference r leo was not used to int erpret this result as normal/abnormal . [facility] StationEmteppxVTCJMIVPOH2532-05-05 09:20:00 Test Item Value Reference Range Interpretation Comments Monocytes (test code = Monocytes) 9.0 2.0-12.0 [facility] StationOywuslwJHAETIHIOU8220-20-90 09:20:00 Test Item Value Reference Range Interpretation Comments Lymphocytes (test code = Lymphocytes) 38.9 20.0-40.0 [facility] StationUubodjyZXNRHBOXMB4136-05-59 09:20:00 Test Item Value Reference Range Interpretation Comments Segs (test code = Segs) 41.5 45.0-75.0 [facility] StationCynrmosICYXTWVLOK7579-26-70 09:20:00 Test Item Value Reference Range Interpretation Comments MPV (test code = MPV) 9.7 7.4-10.4 [facility] StationKlmrufrONPQJORSLY6724-69-90 09:20:00 Test Item Value Reference Range Interpretation Comments Platelet (test code = Platelet) 184 133-450 [facility] StationAgsotnrYYMQTLYQXT5349-13-24 09:20:00 Test Item Value Reference Range Interpretation Comments RDW (test code = RDW) 15.9 11.5-14.5 [facility] StationYldtfmkDOJCWMSTKG5767-80-14 09:20:00 Test Item Value Reference Range Interpretation Comments MCV (test code = MCV) 79.3 80.0-98.0 [facility] StationIatjnbiQAUCWXYDTR1978-46-91 09:20:00 Test Item Value Reference Range Interpretation Comments MCHC (test code = MCHC) 33.0 32.0-36.0 [facility] StationWlpfxsxUGDFHBRTLZ9565-24-17 09:20:00 Test Item Value Reference Range Interpretation Comments MCH (test code = MCH) 26.2 pg 27.0-31.0 [facility] StationYowctzuCJRGMRJAFW8379-00-46 09:20:00 Test Item Value Reference Range Interpretation Comments Hct (test code = Hct) 29.4 36.0-48.0 [facility] StationAsovdinBFAOZLKVRQ6393-76-13 09:20:00 Test Item Value Reference Range Interpretation Comments Hgb (test code = Hgb) 9.7 12.0-16.0 [facility] StationLzlfatdBIZYRGGHDT6578-08-06 09:20:00 Test Item Value Reference Range Interpretation Comments RBC (test code = RBC) 3.70 4.20-5.40 [facility] StationZnvphzjVXXUBSOKQF9457-80-37 09:20:00 Test Item Value Reference Range Interpretation Comments WBC (test code = WBC) 5.7 3.7-10.4 [facility] StationVomxetaCTMXCRWJOW4265-47-61 09:20:00 Test Item Value Reference Range Interpretation Comments Basophils # (test code 0.1 See_Comment [Aut omated message] The = Basophils #) system which generated this result tra nsmitted reference range : <=0.2. The reference r leo was not used to int erpret this result as normal/abnormal . [facility] StationWxbbbukUUPYVZULXO2857-17-02 09:20:00 Test Item Value Reference Range Interpretation Comments Lymphocytes # (test code = Lymphocytes 2.2 1.0-5.5 #) [facility] StationVkxhknjUHFNYYNANM3073-64-88 09:20:00 Test Item Value Reference Range Interpretation Comments Eosinophils # (test code 0.5 See_Comment [A utomated message] The = Eosinophils #) system whic h generated this result tra nsmitted reference range : <=0.5. The reference r leo was not used to int erpret this result as normal/abnormal . [facility] StationLqxdmhzTYBYANASJF9420-03-57 09:20:00 Test Item Value Reference Range Interpretation Comments Monocytes # (test code 0.5 See_Comment [Aut omated message] The = Monocytes #) system which generated this result tra nsmitted reference range : <=0.8. The reference r leo was not used to int erpret this result as normal/abnormal . [facility] StationWmzdjrkZODHXTLQWH8645-41-78 09:20:00 Test Item Value Reference Range Interpretation Comments Basophils (test code = 1.1 See_Comment [Aut omated message] The Basophils) system which ge nerated this result tra nsmitted reference range : <=1.0. The reference r leo was not used to int erpret this result as normal/abnormal . [facility] StationSrvvmtwDSQRSDDIIM8924-66-84 09:20:00 Test Item Value Reference Range Interpretation Comments Segs-Bands # (test code = Segs-Bands #) 2.3 1.5-8.1 [facility] StationBpbchhmWNFFYDIIKJ5295-15-06 09:20:00 Test Item Value Reference Range Interpretation Comments Eosinophils (test code = 9.5 See_Comment [A utomated message] The Eosinophils) system which ge nerated this result tra nsmitted reference range : <=4.0. The reference r leo was not used to int erpret this result as normal/abnormal . [facility] StationFqoaihlFZARMUKXHE6969-04-74 09:20:00 Test Item Value Reference Range Interpretation Comments Monocytes (test code = Monocytes) 9.0 2.0-12.0 [facility] StationXqezvpiEGJFZTERHK3931-33-94 09:20:00 Test Item Value Reference Range Interpretation Comments Lymphocytes (test code = Lymphocytes) 38.9 20.0-40.0 [facility] StationJljfeczDTLNRHMJRA6823-11-16 09:20:00 Test Item Value Reference Range Interpretation Comments Segs (test code = Segs) 41.5 45.0-75.0 [facility]2016-12-24 06:34:00 Test Item Value Reference Range Interpretation Comments Magnesium Lvl (test code = Magnesium 1.7 1.8-2.4 Lvl) [facility]2016-12-24 06:34:00 Test Item Value Reference Range Interpretation Comments Phosphorus (test code = Phosphorus) 4.2 2.5-4.5 [facility]JkhywhfAEBVXMVJJUTR8905-68-03 06:34:00 Test Item Value Reference Range Interpretation Comments AGAP (test code = AGAP) 14.3 10.0-20.0 [facility] HospitalTcngomfQECTOCRSVJXZ6128-56-40 06:34:00 Test Item Value Reference Range Interpretation Comments eGFR (test code = eGFR) 41 [facility] HospitalHoolbrzPUHBUNZUISUP0395-90-70 06:34:00 Test Item Value Reference Range Interpretation Comments Chloride Lvl (test code = Chloride Lvl) 103 95-109 [facility] HospitalGqjvixqDTVWKUPTKZGM7214-12-21 06:34:00 Test Item Value Reference Range Interpretation Comments Calcium Lvl (test code = Calcium Lvl) 8.5 8.5-10.5 [facility] HospitalNfdggyvNRCALNMMMOGE1342-50-68 06:34:00 Test Item Value Reference Range Interpretation Comments CO2 (test code = CO2) 32 24-32 [facility] HospitalTomoyacSKZMXJYKBZNN1734-04-24 06:34:00 Test Item Value Reference Range Interpretation Comments Glucose Lvl (test code = Glucose Lvl) 173 70-99 [facility] HospitalTrxmywwGJPHRMCSXDUE6992-48-21 06:34:00 Test Item Value Reference Range Interpretation Comments BUN (test code = BUN) 37 7-22 [facility] HospitalRucrktdFNHOCOBRKKBG1876-11-08 06:34:00 Test Item Value Reference Range Interpretation Comments Creatinine Lvl (test code = Creatinine 1.63 0.50-1.40 Lvl) [facility] HospitalIssswtpRMSPDFLVNQYM0470-89-36 06:34:00 Test Item Value Reference Range Interpretation Comments Potassium Lvl (test code = Potassium 4.3 3.5-5.1 Lvl) [facility] HospitalAodzhzdHIZWEFGTYCNJ6494-41-94 06:34:00 Test Item Value Reference Range Interpretation Comments Sodium Lvl (test code = Sodium Lvl) 145 135-145 [facility]2016-12-24 06:34:00 Test Item Value Reference Range Interpretation Comments Magnesium Lvl (test code = Magnesium 1.7 1.8-2.4 Lvl) [facility]2016-12-24 06:34:00 Test Item Value Reference Range Interpretation Comments Phosphorus (test code = Phosphorus) 4.2 2.5-4.5 [facility] HospitalKxktgyoZPOJVWCSYFWU4949-38-07 06:34:00 Test Item Value Reference Range Interpretation Comments AGAP (test code = AGAP) 14.3 10.0-20.0 [facility] HospitalOgizinsNDPLLULSHEUW1762-52-00 06:34:00 Test Item Value Reference Range Interpretation Comments eGFR (test code = eGFR) 41 [facility] HospitalShalukfMQKRJEZSXMWM3455-89-17 06:34:00 Test Item Value Reference Range Interpretation Comments Chloride Lvl (test code = Chloride Lvl) 103 95-109 [facility] HospitalRauqowaUVRWDBKQUDOG4547-34-12 06:34:00 Test Item Value Reference Range Interpretation Comments Calcium Lvl (test code = Calcium Lvl) 8.5 8.5-10.5 [facility] HospitalPmandvlQVLYFEGAQAXO8939-64-30 06:34:00 Test Item Value Reference Range Interpretation Comments CO2 (test code = CO2) 32 24-32 [facility] HospitalOoybmdfEXCYHZQUWEZQ5555-63-26 06:34:00 Test Item Value Reference Range Interpretation Comments Glucose Lvl (test code = Glucose Lvl) 173 70-99 [facility] HospitalBbgxreqOOXAKDBBJXBT1795-12-76 06:34:00 Test Item Value Reference Range Interpretation Comments BUN (test code = BUN) 37 7-22 [facility] HospitalRtxhtacFBNABIPHNXLS1326-69-33 06:34:00 Test Item Value Reference Range Interpretation Comments Creatinine Lvl (test code = Creatinine 1.63 0.50-1.40 Lvl) [facility] HospitalFbxpakzTHSOLNFCJCZK6560-58-78 06:34:00 Test Item Value Reference Range Interpretation Comments Potassium Lvl (test code = Potassium 4.3 3.5-5.1 Lvl) [facility] HospitalZoftzuwXSMANAQPINIO8032-89-88 06:34:00 Test Item Value Reference Range Interpretation Comments Sodium Lvl (test code = Sodium Lvl) 145 135-145 [facility]2016-12-24 06:34:00 Test Item Value Reference Range Interpretation Comments Magnesium Lvl (test code = Magnesium 1.7 1.8-2.4 Lvl) [facility]2016-12-24 06:34:00 Test Item Value Reference Range Interpretation Comments Phosphorus (test code = Phosphorus) 4.2 2.5-4.5 [facility] HospitalTxunjedTIWNEDXRALTH5786-32-92 06:34:00 Test Item Value Reference Range Interpretation Comments AGAP (test code = AGAP) 14.3 10.0-20.0 [facility] HospitalQwondyhFMEZCZUNBDDH7921-17-80 06:34:00 Test Item Value Reference Range Interpretation Comments eGFR (test code = eGFR) 41 [facility] HospitalXsffvnqWTXQKZMWZVMP9165-55-51 06:34:00 Test Item Value Reference Range Interpretation Comments Chloride Lvl (test code = Chloride Lvl) 103 95-109 [facility] HospitalNxvweroODKLSWOKDDVJ7255-49-35 06:34:00 Test Item Value Reference Range Interpretation Comments Calcium Lvl (test code = Calcium Lvl) 8.5 8.5-10.5 [facility] HospitalAhpyuhfXHKHJGIHVXOG2343-99-07 06:34:00 Test Item Value Reference Range Interpretation Comments CO2 (test code = CO2) 32 24-32 [facility] HospitalPpxmiaxYYDXJKOYSFDF7196-66-08 06:34:00 Test Item Value Reference Range Interpretation Comments Glucose Lvl (test code = Glucose Lvl) 173 70-99 [facility] HospitalFjmpagjCPUHFYPUYYUE9630-23-78 06:34:00 Test Item Value Reference Range Interpretation Comments BUN (test code = BUN) 37 7-22 [facility] HospitalDmvpggpPWYWCAFZLUAV5878-24-57 06:34:00 Test Item Value Reference Range Interpretation Comments Creatinine Lvl (test code = Creatinine 1.63 0.50-1.40 Lvl) [facility] HospitalYmxkcxpPQEADJCSBTIQ5327-31-51 06:34:00 Test Item Value Reference Range Interpretation Comments Potassium Lvl (test code = Potassium 4.3 3.5-5.1 Lvl) [facility] HospitalFqfdmnxPUQBHQTPJRMI5286-23-16 06:34:00 Test Item Value Reference Range Interpretation Comments Sodium Lvl (test code = Sodium Lvl) 145 135-145 [facility]2016-12-24 06:34:00 Test Item Value Reference Range Interpretation Comments Magnesium Lvl (test code = Magnesium 1.7 1.8-2.4 Lvl) [facility]2016-12-24 06:34:00 Test Item Value Reference Range Interpretation Comments Phosphorus (test code = Phosphorus) 4.2 2.5-4.5 [facility] HospitalOjkdrqcGAYAUUXORTYA4445-03-36 06:34:00 Test Item Value Reference Range Interpretation Comments AGAP (test code = AGAP) 14.3 10.0-20.0 [facility] HospitalUznufnxAJPKSMGDNOUX5820-24-25 06:34:00 Test Item Value Reference Range Interpretation Comments eGFR (test code = eGFR) 41 [facility] HospitalApcyfxsCZKJLFUNQBTP5388-97-71 06:34:00 Test Item Value Reference Range Interpretation Comments Chloride Lvl (test code = Chloride Lvl) 103 95-109 [facility] HospitalRewrkmjVIQZOMMFNEFW5829-08-81 06:34:00 Test Item Value Reference Range Interpretation Comments Calcium Lvl (test code = Calcium Lvl) 8.5 8.5-10.5 [facility] HospitalDjxdnyuMTJFUBAFLSYI5261-92-48 06:34:00 Test Item Value Reference Range Interpretation Comments CO2 (test code = CO2) 32 24-32 [facility] HospitalOyuhkqcJQBUBAPSXZUG4097-92-45 06:34:00 Test Item Value Reference Range Interpretation Comments Glucose Lvl (test code = Glucose Lvl) 173 70-99 [facility] HospitalKotxodpRQJHVAEHHVYZ7472-55-75 06:34:00 Test Item Value Reference Range Interpretation Comments BUN (test code = BUN) 37 7-22 [facility] HospitalOwpjpuwNOQBOCVNKQRO3002-73-35 06:34:00 Test Item Value Reference Range Interpretation Comments Creatinine Lvl (test code = Creatinine 1.63 0.50-1.40 Lvl) [facility] HospitalMmuufstAZEAIRRSEPGN7893-85-38 06:34:00 Test Item Value Reference Range Interpretation Comments Potassium Lvl (test code = Potassium 4.3 3.5-5.1 Lvl) [facility] HospitalMaiqihjJPTZQNZRBJXU8010-51-44 06:34:00 Test Item Value Reference Range Interpretation Comments Sodium Lvl (test code = Sodium Lvl) 145 135-145 [facility]2016-12-24 06:34:00 Test Item Value Reference Range Interpretation Comments Magnesium Lvl (test code = Magnesium 1.7 1.8-2.4 Lvl) [facility]2016-12-24 06:34:00 Test Item Value Reference Range Interpretation Comments Phosphorus (test code = Phosphorus) 4.2 2.5-4.5 [facility] HospitalAwupibdPWPXSGJUWKID8604-30-29 06:34:00 Test Item Value Reference Range Interpretation Comments AGAP (test code = AGAP) 14.3 10.0-20.0 [facility] HospitalFrjoxtwJFBQSFPVGVAJ6251-61-91 06:34:00 Test Item Value Reference Range Interpretation Comments eGFR (test code = eGFR) 41 [facility] HospitalCvxmwtfMSFYUJNPNZCJ3832-78-18 06:34:00 Test Item Value Reference Range Interpretation Comments Chloride Lvl (test code = Chloride Lvl) 103 95-109 [facility] HospitalVrtlaamSBEKFDBEHFSE9182-49-70 06:34:00 Test Item Value Reference Range Interpretation Comments Calcium Lvl (test code = Calcium Lvl) 8.5 8.5-10.5 [facility] HospitalBfpdfclYQHUGUXYXMPE9774-32-08 06:34:00 Test Item Value Reference Range Interpretation Comments CO2 (test code = CO2) 32 24-32 [facility] HospitalAoflqnfAHLTXNFJSPRR3946-45-62 06:34:00 Test Item Value Reference Range Interpretation Comments Glucose Lvl (test code = Glucose Lvl) 173 70-99 [facility] HospitalOfhdkspYPJWTVLPZKNY5182-24-44 06:34:00 Test Item Value Reference Range Interpretation Comments BUN (test code = BUN) 37 7-22 [facility] HospitalQmpolzbSNBOYDYGSFKI3024-74-09 06:34:00 Test Item Value Reference Range Interpretation Comments Creatinine Lvl (test code = Creatinine 1.63 0.50-1.40 Lvl) [facility] HospitalTrylggdKLGLPJUCKNGG7604-23-12 06:34:00 Test Item Value Reference Range Interpretation Comments Potassium Lvl (test code = Potassium 4.3 3.5-5.1 Lvl) [facility] HospitalTetndzxVIFQRYCNSMNE9939-50-94 06:34:00 Test Item Value Reference Range Interpretation Comments Sodium Lvl (test code = Sodium Lvl) 145 135-145 [facility]2016-12-22 16:21:00 Test Item Value Reference Range Interpretation Comments Ammonia (test code = Ammonia) 48.0 [facility]2016-12-22 16:21:00 Test Item Value Reference Range Interpretation Comments Ammonia (test code = Ammonia) 48.0 [facility]2016-12-22 16:21:00 Test Item Value Reference Range Interpretation Comments Ammonia (test code = Ammonia) 48.0 [facility]2016-12-22 16:21:00 Test Item Value Reference Range Interpretation Comments Ammonia (test code = Ammonia) 48.0 [facility]2016-12-22 16:21:00 Test Item Value Reference Range Interpretation Comments Ammonia (test code = Ammonia) 48.0 [facility] TaylorXanxlxdAMGFPAIRWH1848-35-81 14:56:00 Test Item Value Reference Range Interpretation Comments IVETTE Interp (test code Pattern appears = IVETTE Interp) Nucleolar. [facility] TaylorLvanxkcQPABQLPDKI7315-56-56 14:56:00 Test Item Value Reference Range Interpretation Comments IVETTE Titer (test code = 1:40 *ABN*(06/11/16 IVETTE Titer) 8:56 AM) [facility] TaylorWsnuxdpYBCOALVSSO2078-55-03 14:56:00 Test Item Value Reference Range Interpretation Comments Hep Bs Ag (test code Negative *NA*(06/11/16 = Hep Bs Ag) 8:56 AM) [facility] TaylorJowxnttQHHVPMWWHC9028-06-06 14:56:00 Test Item Value Reference Range Interpretation Comments Hep C Ab (test code = Negative *NA*(06/11/16 Hep C Ab) 8:56 AM) [facility] TaylorSstgghmTQYNOISALK7493-38-02 14:56:00 Test Item Value Reference Range Interpretation Comments Hep B Core IgM (test Negative *NA*(06/11/16 code = Hep B Core 8:56 AM) IgM) [facility] TaylorJtahbinUUNTLHEWYU4135-52-92 14:56:00 Test Item Value Reference Range Interpretation Comments Hep A IgM (test code Negative *NA*(06/11/16 = Hep A IgM) 8:56 AM) [facility] TaylorJygduvjAEUAYGUJZO3394-86-58 14:56:00 Test Item Value Reference Range Interpretation Comments HIV Ag/Ab 4th Gen Negative *NA*(06/11/16 (test code = HIV 8:56 AM) Ag/Ab 4th Gen) [facility] TaylorBjyvdquJQJXKUFBTT8613-45-07 14:56:00 Test Item Value Reference Range Interpretation Comments IVETTE (test code = IVETTE) Positive *ABN*(06/11/16 8:56 AM) [facility] TaylorWpkelncIRSRXSGWIL4333-31-37 14:56:00 Test Item Value Reference Range Interpretation Comments IVETTE Interp (test code Pattern appears = IVETTE Interp) Nucleolar. [facility] TaylorJsehnupLHIQWAVUFI8526-86-02 14:56:00 Test Item Value Reference Range Interpretation Comments IVETTE Titer (test code = 1:40 *ABN*(06/11/16 IVETTE Titer) 8:56 AM) [facility] TaylorSvimsqhEHNOBVJTEB6055-06-76 14:56:00 Test Item Value Reference Range Interpretation Comments Hep Bs Ag (test code Negative *NA*(06/11/16 = Hep Bs Ag) 8:56 AM) [facility] TaylorVvqhsqcVOPPTSGACN9544-79-58 14:56:00 Test Item Value Reference Range Interpretation Comments Hep C Ab (test code = Negative *NA*(06/11/16 Hep C Ab) 8:56 AM) [facility] TaylorAoaoqgvKHOSGBQTRC2121-20-90 14:56:00 Test Item Value Reference Range Interpretation Comments Hep B Core IgM (test Negative *NA*(06/11/16 code = Hep B Core 8:56 AM) IgM) [facility] TaylorCozdtubWEUKGIQZDX0425-51-88 14:56:00 Test Item Value Reference Range Interpretation Comments Hep A IgM (test code Negative *NA*(06/11/16 = Hep A IgM) 8:56 AM) [facility] TaylorUrvttuaXXAEHUJLOB2813-13-28 14:56:00 Test Item Value Reference Range Interpretation Comments HIV Ag/Ab 4th Gen Negative *NA*(06/11/16 (test code = HIV 8:56 AM) Ag/Ab 4th Gen) [facility] TaylorGjgtoanCPUZJLLBUX8050-55-19 14:56:00 Test Item Value Reference Range Interpretation Comments IVETTE (test code = IVETTE) Positive *ABN*(06/11/16 8:56 AM) [facility] TaylorVubqlguBCQHXSZLMD8446-66-41 14:56:00 Test Item Value Reference Range Interpretation Comments IVETTE Interp (test code Pattern appears = IVETTE Interp) Nucleolar. [facility] TaylorOmccupuLZQTVGPBNL4580-06-86 14:56:00 Test Item Value Reference Range Interpretation Comments IVETTE Titer (test code = 1:40 *ABN*(06/11/16 IVETTE Titer) 8:56 AM) [facility] TaylorHoebgwxUGOVEJDCLF2654-01-02 14:56:00 Test Item Value Reference Range Interpretation Comments Hep Bs Ag (test code Negative *NA*(06/11/16 = Hep Bs Ag) 8:56 AM) [facility] TaylorEaafbdxTWCTDRJFRZ4339-10-84 14:56:00 Test Item Value Reference Range Interpretation Comments Hep C Ab (test code = Negative *NA*(06/11/16 Hep C Ab) 8:56 AM) [facility] TaylorMowoxiwSCIFTRDEYL7120-39-55 14:56:00 Test Item Value Reference Range Interpretation Comments Hep B Core IgM (test Negative *NA*(06/11/16 code = Hep B Core 8:56 AM) IgM) [facility] TaylorDqtgrliMFKNWGEYLJ7251-88-28 14:56:00 Test Item Value Reference Range Interpretation Comments Hep A IgM (test code Negative *NA*(06/11/16 = Hep A IgM) 8:56 AM) [facility] TaylorKztdponBSRKYECWLN8960-83-84 14:56:00 Test Item Value Reference Range Interpretation Comments HIV Ag/Ab 4th Gen Negative *NA*(06/11/16 (test code = HIV 8:56 AM) Ag/Ab 4th Gen) [facility] TaylorSqcjdlvYVUZBABXUK0619-47-70 14:56:00 Test Item Value Reference Range Interpretation Comments IVETTE (test code = IVETTE) Positive *ABN*(06/11/16 8:56 AM) [facility] TaylorUmposdiPGRITDPCFS6739-68-26 14:56:00 Test Item Value Reference Range Interpretation Comments IVETTE Interp (test code Pattern appears = IVETTE Interp) Nucleolar. [facility] TaylorNbfworqXEQCOQFNUU2718-16-19 14:56:00 Test Item Value Reference Range Interpretation Comments IVETTE Titer (test code = 1:40 *ABN*(06/11/16 IVETTE Titer) 8:56 AM) [facility] TaylorCkeunkqSUTRIOQHIU1991-49-08 14:56:00 Test Item Value Reference Range Interpretation Comments Hep Bs Ag (test code Negative *NA*(06/11/16 = Hep Bs Ag) 8:56 AM) [facility] TaylorTjcrqzsJBETFLMVLU3601-67-77 14:56:00 Test Item Value Reference Range Interpretation Comments Hep C Ab (test code = Negative *NA*(06/11/16 Hep C Ab) 8:56 AM) [facility] TaylorIdctidsQVQIJMNYWA2442-25-24 14:56:00 Test Item Value Reference Range Interpretation Comments Hep B Core IgM (test Negative *NA*(06/11/16 code = Hep B Core 8:56 AM) IgM) [facility] TaylorOwyoviiBRYTGCJJTR5809-32-84 14:56:00 Test Item Value Reference Range Interpretation Comments Hep A IgM (test code Negative *NA*(06/11/16 = Hep A IgM) 8:56 AM) [facility] TaylorBarexquUYXDUDITLD7429-04-13 14:56:00 Test Item Value Reference Range Interpretation Comments HIV Ag/Ab 4th Gen Negative *NA*(06/11/16 (test code = HIV 8:56 AM) Ag/Ab 4th Gen) [facility] TaylorJjfipqrYSSMAANSDU8263-43-29 14:56:00 Test Item Value Reference Range Interpretation Comments IVETTE (test code = IVETTE) Positive *ABN*(06/11/16 8:56 AM) [facility] TaylorDcyyiivHNMDOXQDRY6739-63-56 14:56:00 Test Item Value Reference Range Interpretation Comments IVETTE Interp (test code Pattern appears = IVETTE Interp) Nucleolar. [facility] TaylorKrltkphEAMZUYODBP1193-69-30 14:56:00 Test Item Value Reference Range Interpretation Comments IVETTE Titer (test code = 1:40 *ABN*(06/11/16 IVETTE Titer) 8:56 AM) [facility] TaylorBupbwpxEGWWBNRLOT7092-02-21 14:56:00 Test Item Value Reference Range Interpretation Comments Hep Bs Ag (test code Negative *NA*(06/11/16 = Hep Bs Ag) 8:56 AM) [facility] TaylorJonibuyPZHRNYWNXE1822-34-08 14:56:00 Test Item Value Reference Range Interpretation Comments Hep C Ab (test code = Negative *NA*(06/11/16 Hep C Ab) 8:56 AM) [facility] TaylorKfbibaoFUIVRYFZGT6271-22-71 14:56:00 Test Item Value Reference Range Interpretation Comments Hep B Core IgM (test Negative *NA*(06/11/16 code = Hep B Core 8:56 AM) IgM) [facility] TaylorXsttrfmSRVVKOCGYK9602-03-67 14:56:00 Test Item Value Reference Range Interpretation Comments Hep A IgM (test code Negative *NA*(06/11/16 = Hep A IgM) 8:56 AM) [facility]KofdeaqYOBEPLMHKD4107-90-59 14:56:00 Test Item Value Reference Range Interpretation Comments HIV Ag/Ab 4th Gen Negative *NA*(06/11/16 (test code = HIV 8:56 AM) Ag/Ab 4th Gen) [facility]burgAambrieHBFLXXPLLY2008-55-11 14:56:00 Test Item Value Reference Range Interpretation Comments IVETTE (test code = IVETTE) Positive *ABN*(06/11/16 8:56 AM) [facility]2016-12-22 10:42:00 Test Item Value Reference Range Interpretation Comments Bili Total (test code = Bili Total) 0.1 0.2-1.3 [facility]2016-12-22 10:42:00 Test Item Value Reference Range Interpretation Comments Total Protein (test code = Total 5.2 6.4-8.4 Protein) [facility]2016-12-22 10:42:00 Test Item Value Reference Range Interpretation Comments Albumin Lvl (test code = Albumin Lvl) 1.6 3.5-5.0 [facility]2016-12-22 10:42:00 Test Item Value Reference Range Interpretation Comments B/C Ratio (test code = B/C Ratio) 20 6-25 [facility]2016-12-22 10:42:00 Test Item Value Reference Range Interpretation Comments Globulin (test code = Globulin) 3.6 2.7-4.2 [facility]2016-12-22 10:42:00 Test Item Value Reference Range Interpretation Comments A/G Ratio (test code = A/G Ratio) 0.4 0.7-1.6 [facility]2016-12-22 10:42:00 Test Item Value Reference Range Interpretation Comments Alk Phos (test code = Alk Phos) 74 39-136 [facility]2016-12-22 10:42:00 Test Item Value Reference Range Interpretation Comments ALT (test code = ALT) 14 See_Comment [Auto mated message] The system which ge nerated this result transmit rohit reference range : <=65. The reference range was not used to interpr et this result as reji l/abnormal. [facility]2016-12-22 10:42:00 Test Item Value Reference Range Interpretation Comments AST (test code = AST) 13 See_Comment [Auto mated message] The system which ge nerated this result transmit rohit reference range : <=37. The reference range was not used to interpr et this result as reji l/abnormal. [facility] StationMzyykhkYYUKYJTHSI6833-13-59 10:42:00 Test Item Value Reference Range Interpretation Comments INR (test code = INR) 1.06 0.85-1.17 [facility]wdBLYTYUGKFV9933-43-87 10:42:00 Test Item Value Reference Range Interpretation Comments PT (test code = PT) 14.0 s 12.0-14.7 [facility]PbouwekQXJGNNOKLJ2655-48-69 10:42:00 Test Item Value Reference Range Interpretation Comments PTT (test code = PTT) 36.4 s 22.9-35.8 [facility] GXKLULPUG1759-34-37 10:42:00 Test Item Value Reference Range Interpretation Comments Hgb A1C (test code = Hgb A1C) 10.5 [facility]burgCircle[facility] OWPQC3589-16-92 10:42:00 Test Item Value Reference Range Interpretation Comments Bili Total (test code = Bili Total) 0.1 0.2-1.3 [facility]2016-12-22 10:42:00 Test Item Value Reference Range Interpretation Comments Total Protein (test code = Total 5.2 6.4-8.4 Protein) [facility]2016-12-22 10:42:00 Test Item Value Reference Range Interpretation Comments Albumin Lvl (test code = Albumin Lvl) 1.6 3.5-5.0 [facility] CWING5636-59-98 10:42:00 Test Item Value Reference Range Interpretation Comments B/C Ratio (test code = B/C Ratio) 20 6-25 [facility] XPSLC1992-27-19 10:42:00 Test Item Value Reference Range Interpretation Comments Globulin (test code = Globulin) 3.6 2.7-4.2 [facility]2016-12-22 10:42:00 Test Item Value Reference Range Interpretation Comments A/G Ratio (test code = A/G Ratio) 0.4 0.7-1.6 [facility] JOGZN2116-39-97 10:42:00 Test Item Value Reference Range Interpretation Comments Alk Phos (test code = Alk Phos) 74 39-136 [facility]2016-12-22 10:42:00 Test Item Value Reference Range Interpretation Comments ALT (test code = ALT) 14 See_Comment [Auto mated message] The system which ge nerated this result transmit rohit reference range : <=65. The reference range was not used to interpr et this result as reji l/abnormal. [facility] PORBT2102-56-07 10:42:00 Test Item Value Reference Range Interpretation Comments AST (test code = AST) 13 See_Comment [Auto mated message] The system which ge nerated this result transmit rohit reference range : <=37. The reference range was not used to interpr et this result as reji l/abnormal. [facility] StationFplxhocFPBIBGQPID4336-20-00 10:42:00 Test Item Value Reference Range Interpretation Comments INR (test code = INR) 1.06 0.85-1.17 [facility] StationUhctebwQIYVZXJOWR7029-10-67 10:42:00 Test Item Value Reference Range Interpretation Comments PT (test code = PT) 14.0 s 12.0-14.7 [facility] StationKwhvfkcGPSVPNLDXT4484-15-86 10:42:00 Test Item Value Reference Range Interpretation Comments PTT (test code = PTT) 36.4 s 22.9-35.8 [facility] QCHMONSLZ0301-15-40 10:42:00 Test Item Value Reference Range Interpretation Comments Hgb A1C (test code = Hgb A1C) 10.5 [facility]2016-12-22 10:42:00 Test Item Value Reference Range Interpretation Comments Bili Total (test code = Bili Total) 0.1 0.2-1.3 [facility]2016-12-22 10:42:00 Test Item Value Reference Range Interpretation Comments Total Protein (test code = Total 5.2 6.4-8.4 Protein) [facility]2016-12-22 10:42:00 Test Item Value Reference Range Interpretation Comments Albumin Lvl (test code = Albumin Lvl) 1.6 3.5-5.0 [facility]2016-12-22 10:42:00 Test Item Value Reference Range Interpretation Comments B/C Ratio (test code = B/C Ratio) 20 6-25 [facility]2016-12-22 10:42:00 Test Item Value Reference Range Interpretation Comments Globulin (test code = Globulin) 3.6 2.7-4.2 [facility]2016-12-22 10:42:00 Test Item Value Reference Range Interpretation Comments A/G Ratio (test code = A/G Ratio) 0.4 0.7-1.6 [facility]2016-12-22 10:42:00 Test Item Value Reference Range Interpretation Comments Alk Phos (test code = Alk Phos) 74 39-136 [facility]2016-12-22 10:42:00 Test Item Value Reference Range Interpretation Comments ALT (test code = ALT) 14 See_Comment [Auto mated message] The system which ge nerated this result transmit rohit reference range : <=65. The reference range was not used to interpr et this result as reji l/abnormal. [facility]2016-12-22 10:42:00 Test Item Value Reference Range Interpretation Comments AST (test code = AST) 13 See_Comment [Auto mated message] The system which ge nerated this result transmit rohit reference range : <=37. The reference range was not used to interpr et this result as reji l/abnormal. [facility] [id number] 10:42:00 Test Item Value Reference Range Interpretation Comments INR (test code = INR) 1.06 0.85-1.17 [facility] 10:42:00 Test Item Value Reference Range Interpretation Comments PT (test code = PT) 14.0 s 12.0-14.7 [id number] 10:42:00 Test Item Value Reference Range Interpretation Comments PTT (test code = PTT) 36.4 s 22.9-35.8 [facility] [id number] 10:42:00 Test Item Value Reference Range Interpretation Comments Hgb A1C (test code = Hgb A1C) 10.5 [facility]2016-12-22 10:42:00 Test Item Value Reference Range Interpretation Comments Bili Total (test code = Bili Total) 0.1 0.2-1.3 [facility]2016-12-22 10:42:00 Test Item Value Reference Range Interpretation Comments Total Protein (test code = Total 5.2 6.4-8.4 Protein) [facility]2016-12-22 10:42:00 Test Item Value Reference Range Interpretation Comments Albumin Lvl (test code = Albumin Lvl) 1.6 3.5-5.0 [facility]2016-12-22 10:42:00 Test Item Value Reference Range Interpretation Comments B/C Ratio (test code = B/C Ratio) 20 6-25 [facility]2016-12-22 10:42:00 Test Item Value Reference Range Interpretation Comments Globulin (test code = Globulin) 3.6 2.7-4.2 [facility]2016-12-22 10:42:00 Test Item Value Reference Range Interpretation Comments A/G Ratio (test code = A/G Ratio) 0.4 0.7-1.6 [facility]2016-12-22 10:42:00 Test Item Value Reference Range Interpretation Comments Alk Phos (test code = Alk Phos) 74 39-136 [facility]2016-12-22 10:42:00 Test Item Value Reference Range Interpretation Comments ALT (test code = ALT) 14 See_Comment [Auto mated message] The system which ge nerated this result transmit rohit reference range : <=65. The reference range was not used to interpr et this result as reji l/abnormal. [facility]2016-12-22 10:42:00 Test Item Value Reference Range Interpretation Comments AST (test code = AST) 13 See_Comment [Auto mated message] The system which ge nerated this result transmit rohit reference range : <=37. The reference range was not used to interpr et this result as reji l/abnormal. [facility] St[id number] 10:42:00 Test Item Value Reference Range Interpretation Comments INR (test code = INR) 1.06 0.85-1.17 [facility] StationLzpkbjiHOVTVDEHBL6799-01-58 10:42:00 Test Item Value Reference Range Interpretation Comments PT (test code = PT) 14.0 s 12.0-14.7 [facility] StationZivlchnCVBSQKBALC1345-69-51 10:42:00 Test Item Value Reference Range Interpretation Comments PTT (test code = PTT) 36.4 s 22.9-35.8 [facility] [id number] 10:42:00 Test Item Value Reference Range Interpretation Comments Hgb A1C (test code = Hgb A1C) 10.5 [facility]2016-12-22 10:42:00 Test Item Value Reference Range Interpretation Comments Bili Total (test code = Bili Total) 0.1 0.2-1.3 [facility]2016-12-22 10:42:00 Test Item Value Reference Range Interpretation Comments Total Protein (test code = Total 5.2 6.4-8.4 Protein) [facility]2016-12-22 10:42:00 Test Item Value Reference Range Interpretation Comments Albumin Lvl (test code = Albumin Lvl) 1.6 3.5-5.0 [facility]2016-12-22 10:42:00 Test Item Value Reference Range Interpretation Comments B/C Ratio (test code = B/C Ratio) 20 6-25 [facility]2016-12-22 10:42:00 Test Item Value Reference Range Interpretation Comments Globulin (test code = Globulin) 3.6 2.7-4.2 [facility]2016-12-22 10:42:00 Test Item Value Reference Range Interpretation Comments A/G Ratio (test code = A/G Ratio) 0.4 0.7-1.6 [facility]2016-12-22 10:42:00 Test Item Value Reference Range Interpretation Comments Alk Phos (test code = Alk Phos) 74 39-136 [facility]2016-12-22 10:42:00 Test Item Value Reference Range Interpretation Comments ALT (test code = ALT) 14 See_Comment [Auto mated message] The system which ge nerated this result transmit rohit reference range : <=65. The reference range was not used to interpr et this result as reji l/abnormal. [facility]2016-12-22 10:42:00 Test Item Value Reference Range Interpretation Comments AST (test code = AST) 13 See_Comment [Auto mated message] The system which ge nerated this result transmit rohit reference range : <=37. The reference range was not used to interpr et this result as reji l/abnormal. [facility]burgPflxkfzOTTJAULRPL5546-15-13 10:42:00 Test Item Value Reference Range Interpretation Comments INR (test code = INR) 1.06 0.85-1.17 [facility]la[id number] 10:42:00 Test Item Value Reference Range Interpretation Comments PT (test code = PT) 14.0 s 12.0-14.7 [facility] Pearla[id number] 10:42:00 Test Item Value Reference Range Interpretation Comments PTT (test code = PTT) 36.4 s 22.9-35.8 [facility] [id number] 10:42:00 Test Item Value Reference Range Interpretation Comments Hgb A1C (test code = Hgb A1C) 10.5 [facility]annCARDIAC [id number] 02:08:00 Test Item Value Reference Range Interpretation Comments CK MB Index (test 1.8 See_Comment [Automate d message] The code = CK MB Index) system w [facility] generated this result transmit rohit reference range : <=2.5. The reference range was not used to interpr et this result as reji l/abnormal. [facility] PearlandDiscovery LabsCARGeMeTec MetrologyAC [id number] 02:08:00 Test Item Value Reference Range Interpretation Comments CK MB (test code = CK MB) 2.9 0.5-3.6 [facility]annCARDIAC [id number] 02:08:00 Test Item Value Reference Range Interpretation Comments Troponin-T (test code 0.061 See_Comment [Auto mated message] The = Troponin-T) system which g enerated this result transmit rohit reference range : <=0.100. The reference r leo was not used to interpr et this result as reji l/abnormal. [facility]CARDIAC [id number] 02:08:00 Test Item Value Reference Range Interpretation Comments Total CK (test code = Total CK) 159 12-191 [facility] Care[facility] [id number] 02:08:00 Test Item Value Reference Range Interpretation Comments Troponin-I (test code no gt See_Comment [Auto mated message] The = Troponin-I) system which g enerated this result transmit rohit reference range : <=0.40. The reference r leo was not used to interpr et this result as reji l/abnormal. [facility] ResourcesCHEM [id number] 02:08:00 Test Item Value Reference Range Interpretation Comments Bili Total (test code = Bili Total) 0.2 0.2-1.3 [facility]2016-12-22 02:08:00 Test Item Value Reference Range Interpretation Comments Bili Direct (test code 0.1 See_Comment [Aut omated message] The = Bili Direct) system which generated this result tra nsmitted reference range : <=0.3. The reference r leo was not used to int erpret this result as reji l/abnormal. [facility]2016-12-22 02:08:00 Test Item Value Reference Range Interpretation Comments Bili Indirect (test 0.1 See_Comment [Automa rohit message] The code = Bili Indirect) system which generated this result tra nsmitted reference range : <=1.0. The reference r leo was not used to int erpret this result as normal/abnormal . [place] [id number] 02:08:00 Test Item Value Reference Range Interpretation Comments Total Protein (test code = Total 5.7 6.4-8.4 Protein) [place] [id number] 02:08:00 Test Item Value Reference Range Interpretation Comments A/G Ratio (test code = A/G Ratio) 0.5 0.7-1.6 [place] [id number] 02:08:00 Test Item Value Reference Range Interpretation Comments Albumin Lvl (test code = Albumin Lvl) 1.8 3.5-5.0 [place] [id number] 02:08:00 Test Item Value Reference Range Interpretation Comments Globulin (test code = Globulin) 3.9 2.7-4.2 [place] 917536-12-22 02:08:00 Test Item Value Reference Range Interpretation Comments Alk Phos (test code = Alk Phos) 99 39-136 [place] 917536-12-22 02:08:00 Test Item Value Reference Range Interpretation Comments AST (test code = AST) 21 See_Comment [Auto mated message] The system which ge nerated this result transmit rohit reference range : <=37. The reference range was not used to interpr et this result as reji l/abnormal. [place] [id number] 02:08:00 Test Item Value Reference Range Interpretation Comments ALT (test code = ALT) 17 See_Comment [Auto mated message] The system which ge nerated this result transmit rohit reference range : <=65. The reference range was not used to interpr et this result as reji l/abnormal. [facility] [id number] 02:08:00 Test Item Value Reference Range Interpretation Comments UDS Note (test code = See Note *NA*(06/10/16 UDS Note) 8:08 PM) [facility] [id number] 02:08:00 Test Item Value Reference Range Interpretation Comments U Propoxyph Scr (test Negative *NA*(06/10/16 code = U Propoxyph Scr) 8:08 PM) [facility] [id number] 02:08:00 Test Item Value Reference Range Interpretation Comments U Opiate Scr (test Negative *NA*(06/10/16 code = U Opiate Scr) 8:08 PM) [facility] [id number] 02:08:00 Test Item Value Reference Range Interpretation Comments U Methadone Scr (test Negative *NA*(06/10/16 code = U Methadone Scr) 8:08 PM) [facility] [id number] 02:08:00 Test Item Value Reference Range Interpretation Comments U Phencyc Scr (test Negative *NA*(06/10/16 code = U Phencyc Scr) 8:08 PM) [facility] [id number] 02:08:00 Test Item Value Reference Range Interpretation Comments U Cannab Scr (test Negative *NA*(06/10/16 code = U Cannab Scr) 8:08 PM) [facility] [id number] 02:08:00 Test Item Value Reference Range Interpretation Comments U Amph Scr (test code Negative *NA*(06/10/16 = U Amph Scr) 8:08 PM) [facility] [id number] 02:08:00 Test Item Value Reference Range Interpretation Comments U Kelly Scr (test code Negative *NA*(06/10/16 = U Kelly Scr) 8:08 PM) [facility] [id number] 02:08:00 Test Item Value Reference Range Interpretation Comments U Benzodia Scr (test Negative *NA*(06/10/16 code = U Benzodia Scr) 8:08 PM) [facility] [id number] 02:08:00 Test Item Value Reference Range Interpretation Comments U Cocaine Scr (test Negative *NA*(06/10/16 code = U Cocaine Scr) 8:08 PM) [facility] [id number] 02:08:00 Test Item Value Reference Range Interpretation Comments LDL (Calculated) (test code = LDL 75 (Calculated)) [facility] [id number] 02:08:00 Test Item Value Reference Range Interpretation Comments VLDL (test code = VLDL) 27 [facility] [id number] 02:08:00 Test Item Value Reference Range Interpretation Comments Chol (test code = Chol) 133 [facility] [id number] 02:08:00 Test Item Value Reference Range Interpretation Comments Trig (test code = Trig) 133 [facility] [id number] 02:08:00 Test Item Value Reference Range Interpretation Comments CHD Risk (test code = CHD Risk) 4.29 3.90-5.80 [facility] [id number] 02:08:00 Test Item Value Reference Range Interpretation Comments HDL (test code = HDL) 31 [facility] [id number] 02:08:00 Test Item Value Reference Range Interpretation Comments UA Urobilinogen (test code = UA <=1.0 mg/dL 0.1-1.0 Urobilinogen) [facility] [id number] 02:08:00 Test Item Value Reference Range Interpretation Comments UA Ketones (test code = UA Negative mg/dL Ketones) [facility] [id number] 02:08:00 Test Item Value Reference Range Interpretation Comments UA Glucose (test code = UA Glucose) 300 mg/dL [facility] [id number] 02:08:00 Test Item Value Reference Range Interpretation Comments UA Protein (test code = UA >=300 mg/dL Protein) [facility] [id number] 02:08:00 Test Item Value Reference Range Interpretation Comments UA pH (test code = UA pH) 6.0 5.0-8.0 [facility] [id number] 02:08:00 Test Item Value Reference Range Interpretation Comments UA Nitrite (test code Negative (06/10/16 8:08 = UA Nitrite) PM) [facility] AND [id number] 02:08:00 Test Item Value Reference Range Interpretation Comments UA Blood (test code = Trace *ABN*(06/10/16 UA Blood) 8:08 PM) [facility] AND [id number] 02:08:00 Test Item Value Reference Range Interpretation Comments UA Bili (test code = Negative *NA*(06/10/16 UA Bili) 8:08 PM) [facility] AND [id number] 02:08:00 Test Item Value Reference Range Interpretation Comments UA Mucus (test code = UA Mucus) Few /LPF [facility] AND [id number] 02:08:00 Test Item Value Reference Range Interpretation Comments UA RBC (test code = 4 See_Comment [Automa rohit message] The UA RBC) system which ge nerated this result transmit rohit reference range : <=2. The reference range was not used to interpr et this result as reji l/abnormal. [facility] AND [id number] 02:08:00 Test Item Value Reference Range Interpretation Comments UA Sq Epi (test code = UA Sq Epi) Few /LPF [facility] AND [id number] 02:08:00 Test Item Value Reference Range Interpretation Comments UA WBC (test code = 5 See_Comment [Automa rohit message] The UA WBC) system which ge nerated this result transmit rohit reference range : <=5. The reference range was not used to interpr et this result as reji l/abnormal. [facility] AND [id number] 02:08:00 Test Item Value Reference Range Interpretation Comments UA Leuk Est (test code Small *ABN*(06/10/16 = UA Leuk Est) 8:08 PM) [facility] AND [id number] 02:08:00 Test Item Value Reference Range Interpretation Comments UA Hyal Cast (test 1 See_Comment [Automat ed message] The code = UA Hyal Cast) system which generated this result transmit rohit reference range : <=2. The reference range was not used to interpr et this result as reji l/abnormal. [facility] AND [id number] 02:08:00 Test Item Value Reference Range Interpretation Comments UA Spec Grav (test code = UA Spec Grav) 1.009 [facility] [id number] 02:08:00 Test Item Value Reference Range Interpretation Comments UA Color (test code = Yellow *NA*(06/10/16 UA Color) 8:08 PM) [facility] AND [id number] 02:08:00 Test Item Value Reference Range Interpretation Comments UA Turbidity (test code = Clear (06/10/16 8:08 UA Turbidity) PM) [facility] [id number] 02:08:00 Test Item Value Reference Range Interpretation Comments U Preg (test code = U Negative (06/10/16 8:08 Preg) PM) [facility] [id number] 02:08:00 Test Item Value Reference Range Interpretation Comments U Protein (test code = U Protein) 375.4 [facility] [id number] 02:08:00 Test Item Value Reference Range Interpretation Comments U Prot/Creat (test code = U Prot/Creat) 5.4 [facility] [id number] 02:08:00 Test Item Value Reference Range Interpretation Comments U Creatinine (test code = U Creatinine) 69.80 [facility] [id number] 02:08:00 Test Item Value Reference Range Interpretation Comments CK MB Index (test 1.8 See_Comment [Automate d message] The code = CK MB Index) system w [facility] generated this result transmit rohit reference range : <=2.5. The reference range was not used to interpr et this result as reji l/abnormal. [facility] [id number] 02:08:00 Test Item Value Reference Range Interpretation Comments CK MB (test code = CK MB) 2.9 0.5-3.6 [facility] [id number] 02:08:00 Test Item Value Reference Range Interpretation Comments Troponin-T (test code 0.061 See_Comment [Auto mated message] The = Troponin-T) system which g enerated this result transmit rohit reference range : <=0.100. The reference r leo was not used to interpr et this result as reji l/abnormal. [facility] [id number] 02:08:00 Test Item Value Reference Range Interpretation Comments Total CK (test code = Total CK) 159 12-191 [facility] [id number] 02:08:00 Test Item Value Reference Range Interpretation Comments Troponin-I (test code no gt See_Comment [Auto mated message] The = Troponin-I) system which g enerated this result transmit rohit reference range : <=0.40. The reference r leo was not used to interpr et this result as reji l/abnormal. [facility]2016-12-22 02:08:00 Test Item Value Reference Range Interpretation Comments Bili Total (test code = Bili Total) 0.2 0.2-1.3 [facility]2016-12-22 02:08:00 Test Item Value Reference Range Interpretation Comments Bili Direct (test code 0.1 See_Comment [Aut omated message] The = Bili Direct) system which generated this result tra nsmitted reference range : <=0.3. The reference r leo was not used to int erpret this result as reji l/abnormal. [facility]2016-12-22 02:08:00 Test Item Value Reference Range Interpretation Comments Bili Indirect (test 0.1 See_Comment [Automa rohit message] The code = Bili Indirect) system which generated this result tra nsmitted reference range : <=1.0. The reference r leo was not used to int erpret this result as normal/abnormal . [facility]2016-12-22 02:08:00 Test Item Value Reference Range Interpretation Comments Total Protein (test code = Total 5.7 6.4-8.4 Protein) [facility]2016-12-22 02:08:00 Test Item Value Reference Range Interpretation Comments A/G Ratio (test code = A/G Ratio) 0.5 0.7-1.6 [facility]2016-12-22 02:08:00 Test Item Value Reference Range Interpretation Comments Albumin Lvl (test code = Albumin Lvl) 1.8 3.5-5.0 [facility]2016-12-22 02:08:00 Test Item Value Reference Range Interpretation Comments Globulin (test code = Globulin) 3.9 2.7-4.2 [facility]2016-12-22 02:08:00 Test Item Value Reference Range Interpretation Comments Alk Phos (test code = Alk Phos) 99 39-136 [facility] [id number] 02:08:00 Test Item Value Reference Range Interpretation Comments AST (test code = AST) 21 See_Comment [Auto mated message] The system which ge nerated this result transmit rohit reference range : <=37. The reference range was not used to interpr et this result as reji l/abnormal. [facility] [employer] [facility] [id number] 02:08:00 Test Item Value Reference Range Interpretation Comments ALT (test code = ALT) 17 See_Comment [Auto mated message] The system which ge nerated this result transmit rohit reference range : <=65. The reference range was not used to interpr et this result as reji l/abnormal. [facility] [id number] 02:08:00 Test Item Value Reference Range Interpretation Comments UDS Note (test code = See Note *NA*(06/10/16 UDS Note) 8:08 PM) [facility] [id number] 02:08:00 Test Item Value Reference Range Interpretation Comments U Propoxyph Scr (test Negative *NA*(06/10/16 code = U Propoxyph Scr) 8:08 PM) [facility] [id number] 02:08:00 Test Item Value Reference Range Interpretation Comments U Opiate Scr (test Negative *NA*(06/10/16 code = U Opiate Scr) 8:08 PM) [facility] [id number] 02:08:00 Test Item Value Reference Range Interpretation Comments U Methadone Scr (test Negative *NA*(06/10/16 code = U Methadone Scr) 8:08 PM) [facility] [id number] 02:08:00 Test Item Value Reference Range Interpretation Comments U Phencyc Scr (test Negative *NA*(06/10/16 code = U Phencyc Scr) 8:08 PM) [facility] [id number] 02:08:00 Test Item Value Reference Range Interpretation Comments U Cannab Scr (test Negative *NA*(06/10/16 code = U Cannab Scr) 8:08 PM) [facility] [id number] 02:08:00 Test Item Value Reference Range Interpretation Comments U Amph Scr (test code Negative *NA*(06/10/16 = U Amph Scr) 8:08 PM) [facility] [id number] 02:08:00 Test Item Value Reference Range Interpretation Comments U Kelly Scr (test code Negative *NA*(06/10/16 = U Kelly Scr) 8:08 PM) [facility] [id number] 02:08:00 Test Item Value Reference Range Interpretation Comments U Benzodia Scr (test Negative *NA*(06/10/16 code = U Benzodia Scr) 8:08 PM) [facility] [id number] 02:08:00 Test Item Value Reference Range Interpretation Comments U Cocaine Scr (test Negative *NA*(06/10/16 code = U Cocaine Scr) 8:08 PM) [facility] [id number] 02:08:00 Test Item Value Reference Range Interpretation Comments LDL (Calculated) (test code = LDL 75 (Calculated)) [facility] [id number] 02:08:00 Test Item Value Reference Range Interpretation Comments VLDL (test code = VLDL) 27 [facility] [id number] 02:08:00 Test Item Value Reference Range Interpretation Comments Chol (test code = Chol) 133 [facility] [id number] 02:08:00 Test Item Value Reference Range Interpretation Comments Trig (test code = Trig) 133 [facility] [id number] 02:08:00 Test Item Value Reference Range Interpretation Comments CHD Risk (test code = CHD Risk) 4.29 3.90-5.80 [facility] [id number] 02:08:00 Test Item Value Reference Range Interpretation Comments HDL (test code = HDL) 31 [facility] [id number] 02:08:00 Test Item Value Reference Range Interpretation Comments UA Urobilinogen (test code = UA <=1.0 mg/dL 0.1-1.0 Urobilinogen) [facility] [id number] 02:08:00 Test Item Value Reference Range Interpretation Comments UA Ketones (test code = UA Negative mg/dL Ketones) [facility] [id number] 02:08:00 Test Item Value Reference Range Interpretation Comments UA Glucose (test code = UA Glucose) 300 mg/dL [facility] AND [id number] 02:08:00 Test Item Value Reference Range Interpretation Comments UA Protein (test code = UA >=300 mg/dL Protein) [facility] AND [id number] 02:08:00 Test Item Value Reference Range Interpretation Comments UA pH (test code = UA pH) 6.0 5.0-8.0 [facility] AND [id number] 02:08:00 Test Item Value Reference Range Interpretation Comments UA Nitrite (test code Negative (06/10/16 8:08 = UA Nitrite) PM) [facility] AND [id number] 02:08:00 Test Item Value Reference Range Interpretation Comments UA Blood (test code = Trace *ABN*(06/10/16 UA Blood) 8:08 PM) [facility] AND [id number] 02:08:00 Test Item Value Reference Range Interpretation Comments UA Bili (test code = Negative *NA*(06/10/16 UA Bili) 8:08 PM) [facility] AND [id number] 02:08:00 Test Item Value Reference Range Interpretation Comments UA Mucus (test code = UA Mucus) Few /LPF [facility] AND [id number] 02:08:00 Test Item Value Reference Range Interpretation Comments UA RBC (test code = 4 See_Comment [Automa rohit message] The UA RBC) system which ge nerated this result transmit rohit reference range : <=2. The reference range was not used to interpr et this result as reji l/abnormal. [facility] AND [id number] 02:08:00 Test Item Value Reference Range Interpretation Comments UA Sq Epi (test code = UA Sq Epi) Few /LPF [facility] AND [id number] 02:08:00 Test Item Value Reference Range Interpretation Comments UA WBC (test code = 5 See_Comment [Automa rohit message] The UA WBC) system which ge nerated this result transmit rohit reference range : <=5. The reference range was not used to interpr et this result as reji l/abnormal. [facility] AND [id number] 02:08:00 Test Item Value Reference Range Interpretation Comments UA Leuk Est (test code Small *ABN*(06/10/16 = UA Leuk Est) 8:08 PM) [facility] [id number] 02:08:00 Test Item Value Reference Range Interpretation Comments UA Hyal Cast (test 1 See_Comment [Automat ed message] The code = UA Hyal Cast) system which generated this result transmit rohit reference range : <=2. The reference range was not used to interpr et this result as reji l/abnormal. [facility] [id number] 02:08:00 Test Item Value Reference Range Interpretation Comments UA Spec Grav (test code = UA Spec Grav) 1.009 [facility] [id number] 02:08:00 Test Item Value Reference Range Interpretation Comments UA Color (test code = Yellow *NA*(06/10/16 UA Color) 8:08 PM) [facility] [id number] 02:08:00 Test Item Value Reference Range Interpretation Comments UA Turbidity (test code = Clear (06/10/16 8:08 UA Turbidity) PM) [facility] [id number] 02:08:00 Test Item Value Reference Range Interpretation Comments U Preg (test code = U Negative (06/10/16 8:08 Preg) PM) [facility] [id number] 02:08:00 Test Item Value Reference Range Interpretation Comments U Protein (test code = U Protein) 375.4 [facility] [id number] 02:08:00 Test Item Value Reference Range Interpretation Comments U Prot/Creat (test code = U Prot/Creat) 5.4 [facility] [id number] 02:08:00 Test Item Value Reference Range Interpretation Comments U Creatinine (test code = U Creatinine) 69.80 [facility] [id number] 02:08:00 Test Item Value Reference Range Interpretation Comments CK MB Index (test 1.8 See_Comment [Automate d message] The code = CK MB Index) system w [facility] generated this result transmit rohit reference range : <=2.5. The reference range was not used to interpr et this result as reji l/abnormal. [facility] [id number] 02:08:00 Test Item Value Reference Range Interpretation Comments CK MB (test code = CK MB) 2.9 0.5-3.6 [facility] [employer] [id number] 02:08:00 Test Item Value Reference Range Interpretation Comments Troponin-T (test code 0.061 See_Comment [Auto mated message] The = Troponin-T) system which g enerated this result transmit rohit reference range : <=0.100. The reference r leo was not used to interpr et this result as reji l/abnormal. [facility] [employer]2016-12-22 02:08:00 Test Item Value Reference Range Interpretation Comments Total CK (test code = Total CK) 159 12-191 [facility] [id number] 02:08:00 Test Item Value Reference Range Interpretation Comments Troponin-I (test code no gt See_Comment [Auto mated message] The = Troponin-I) system which g enerated this result transmit rohit reference range : <=0.40. The reference r leo was not used to interpr et this result as reji l/abnormal. [facility] [employer]2016-12-22 02:08:00 Test Item Value Reference Range Interpretation Comments Bili Total (test code = Bili Total) 0.2 0.2-1.3 [facility] [employer]2016-12-22 02:08:00 Test Item Value Reference Range Interpretation Comments Bili Direct (test code 0.1 See_Comment [Aut omated message] The = Bili Direct) system which generated this result tra nsmitted reference range : <=0.3. The reference r leo was not used to int erpret this result as reji l/abnormal. [facility] [employer]2016-12-22 02:08:00 Test Item Value Reference Range Interpretation Comments Bili Indirect (test 0.1 See_Comment [Automa rohit message] The code = Bili Indirect) system which generated this result tra nsmitted reference range : <=1.0. The reference r leo was not used to int erpret this result as normal/abnormal . [facility] [employer]2016-12-22 02:08:00 Test Item Value Reference Range Interpretation Comments Total Protein (test code = Total 5.7 6.4-8.4 Protein) [facility] [employer]2016-12-22 02:08:00 Test Item Value Reference Range Interpretation Comments A/G Ratio (test code = A/G Ratio) 0.5 0.7-1.6 [facility] [employer] [id number] 02:08:00 Test Item Value Reference Range Interpretation Comments Albumin Lvl (test code = Albumin Lvl) 1.8 3.5-5.0 [facility] [employer] [id number] 02:08:00 Test Item Value Reference Range Interpretation Comments Globulin (test code = Globulin) 3.9 2.7-4.2 [facility] [employer] [id number] 02:08:00 Test Item Value Reference Range Interpretation Comments Alk Phos (test code = Alk Phos) 99 39-136 [facility] [employer] [id number] 02:08:00 Test Item Value Reference Range Interpretation Comments AST (test code = AST) 21 See_Comment [Auto mated message] The system which ge nerated this result transmit rohit reference range : <=37. The reference range was not used to interpr et this result as reji l/abnormal. [facility] [employer]2016-12-22 02:08:00 Test Item Value Reference Range Interpretation Comments ALT (test code = ALT) 17 See_Comment [Auto mated message] The system which ge nerated this result transmit rohit reference range : <=65. The reference range was not used to interpr et this result as reji l/abnormal. [facility] [employer] [id number] 02:08:00 Test Item Value Reference Range Interpretation Comments UDS Note (test code = See Note *NA*(06/10/16 UDS Note) 8:08 PM) [facility] [employer] [id number] 02:08:00 Test Item Value Reference Range Interpretation Comments U Propoxyph Scr (test Negative *NA*(06/10/16 code = U Propoxyph Scr) 8:08 PM) [facility] [employer] [id number] 02:08:00 Test Item Value Reference Range Interpretation Comments U Opiate Scr (test Negative *NA*(06/10/16 code = U Opiate Scr) 8:08 PM) [facility] [employer] [id number] 02:08:00 Test Item Value Reference Range Interpretation Comments U Methadone Scr (test Negative *NA*(06/10/16 code = U Methadone Scr) 8:08 PM) [facility] [id number] 02:08:00 Test Item Value Reference Range Interpretation Comments U Phencyc Scr (test Negative *NA*(06/10/16 code = U Phencyc Scr) 8:08 PM) [facility] [id number] 02:08:00 Test Item Value Reference Range Interpretation Comments U Cannab Scr (test Negative *NA*(06/10/16 code = U Cannab Scr) 8:08 PM) [facility] [id number] 02:08:00 Test Item Value Reference Range Interpretation Comments U Amph Scr (test code Negative *NA*(06/10/16 = U Amph Scr) 8:08 PM) [facility] [id number] 02:08:00 Test Item Value Reference Range Interpretation Comments U Kelly Scr (test code Negative *NA*(06/10/16 = U Kelly Scr) 8:08 PM) [facility] [id number] 02:08:00 Test Item Value Reference Range Interpretation Comments U Benzodia Scr (test Negative *NA*(06/10/16 code = U Benzodia Scr) 8:08 PM) [facility] [id number] 02:08:00 Test Item Value Reference Range Interpretation Comments U Cocaine Scr (test Negative *NA*(06/10/16 code = U Cocaine Scr) 8:08 PM) [id number] 02:08:00 Test Item Value Reference Range Interpretation Comments LDL (Calculated) (test code = LDL 75 (Calculated)) [facility] [id number] 02:08:00 Test Item Value Reference Range Interpretation Comments VLDL (test code = VLDL) 27 [facility] [id number] 02:08:00 Test Item Value Reference Range Interpretation Comments Chol (test code = Chol) 133 [facility] [id number] 02:08:00 Test Item Value Reference Range Interpretation Comments Trig (test code = Trig) 133 [facility] [id number] 02:08:00 Test Item Value Reference Range Interpretation Comments CHD Risk (test code = CHD Risk) 4.29 3.90-5.80 [facility] [id number] 02:08:00 Test Item Value Reference Range Interpretation Comments HDL (test code = HDL) 31 [facility] AND [id number] 02:08:00 Test Item Value Reference Range Interpretation Comments UA Urobilinogen (test code = UA <=1.0 mg/dL 0.1-1.0 Urobilinogen) [facility] AND [id number] 02:08:00 Test Item Value Reference Range Interpretation Comments UA Ketones (test code = UA Negative mg/dL Ketones) [facility] AND [id number] 02:08:00 Test Item Value Reference Range Interpretation Comments UA Glucose (test code = UA Glucose) 300 mg/dL [facility] AND [id number] 02:08:00 Test Item Value Reference Range Interpretation Comments UA Protein (test code = UA >=300 mg/dL Protein) [facility] AND [id number] 02:08:00 Test Item Value Reference Range Interpretation Comments UA pH (test code = UA pH) 6.0 5.0-8.0 [facility] AND [id number] 02:08:00 Test Item Value Reference Range Interpretation Comments UA Nitrite (test code Negative (06/10/16 8:08 = UA Nitrite) PM) [facility] AND [id number] 02:08:00 Test Item Value Reference Range Interpretation Comments UA Blood (test code = Trace *ABN*(06/10/16 UA Blood) 8:08 PM) [facility] AND [id number] 02:08:00 Test Item Value Reference Range Interpretation Comments UA Bili (test code = Negative *NA*(06/10/16 UA Bili) 8:08 PM) [facility] AND [id number] 02:08:00 Test Item Value Reference Range Interpretation Comments UA Mucus (test code = UA Mucus) Few /LPF [facility] AND [id number] 02:08:00 Test Item Value Reference Range Interpretation Comments UA RBC (test code = 4 See_Comment [Automa rohit message] The UA RBC) system which ge nerated this result transmit rohit reference range : <=2. The reference range was not used to interpr et this result as reji l/abnormal. [facility] AND [id number] 02:08:00 Test Item Value Reference Range Interpretation Comments UA Sq Epi (test code = UA Sq Epi) Few /LPF [facility] AND [id number] 02:08:00 Test Item Value Reference Range Interpretation Comments UA WBC (test code = 5 See_Comment [Automa rohit message] The UA WBC) system which ge nerated this result transmit rohit reference range : <=5. The reference range was not used to interpr et this result as reji l/abnormal. [facility] [id number] 02:08:00 Test Item Value Reference Range Interpretation Comments UA Leuk Est (test code Small *ABN*(06/10/16 = UA Leuk Est) 8:08 PM) [facility] AND [id number] 02:08:00 Test Item Value Reference Range Interpretation Comments UA Hyal Cast (test 1 See_Comment [Automat ed message] The code = UA Hyal Cast) system which generated this result transmit rohit reference range : <=2. The reference range was not used to interpr et this result as reji l/abnormal. [facility] AND [id number] 02:08:00 Test Item Value Reference Range Interpretation Comments UA Spec Grav (test code = UA Spec Grav) 1.009 [facility] AND [id number] 02:08:00 Test Item Value Reference Range Interpretation Comments UA Color (test code = Yellow *NA*(06/10/16 UA Color) 8:08 PM) [facility] AND [id number] 02:08:00 Test Item Value Reference Range Interpretation Comments UA Turbidity (test code = Clear (06/10/16 8:08 UA Turbidity) PM) [facility]2016-12-22 02:08:00 Test Item Value Reference Range Interpretation Comments U Preg (test code = U Negative (06/10/16 8:08 Preg) PM) [facility]2016-12-22 02:08:00 Test Item Value Reference Range Interpretation Comments U Protein (test code = U Protein) 375.4 [facility]2016-12-22 02:08:00 Test Item Value Reference Range Interpretation Comments U Prot/Creat (test code = U Prot/Creat) 5.4 [facility]2016-12-22 02:08:00 Test Item Value Reference Range Interpretation Comments U Creatinine (test code = U Creatinine) 69.80 [facility] [employer]2016-12-22 02:08:00 Test Item Value Reference Range Interpretation Comments CK MB Index (test 1.8 See_Comment [Automate d message] The code = CK MB Index) system w [facility] generated this result transmit rohit reference range : <=2.5. The reference range was not used to interpr et this result as reji l/abnormal. [facility]2016-12-22 02:08:00 Test Item Value Reference Range Interpretation Comments CK MB (test code = CK MB) 2.9 0.5-3.6 [facility] [employer]2016-12-22 02:08:00 Test Item Value Reference Range Interpretation Comments Troponin-T (test code 0.061 See_Comment [Auto mated message] The = Troponin-T) system which g enerated this result transmit rohit reference range : <=0.100. The reference r leo was not used to interpr et this result as reji l/abnormal. [facility]2016-12-22 02:08:00 Test Item Value Reference Range Interpretation Comments Total CK (test code = Total CK) 159 12-191 [facility] [employer]2016-12-22 02:08:00 Test Item Value Reference Range Interpretation Comments Troponin-I (test code no gt See_Comment [Auto mated message] The = Troponin-I) system which g enerated this result transmit rohit reference range : <=0.40. The reference r leo was not used to interpr et this result as reji l/abnormal. [employer]2016-12-22 02:08:00 Test Item Value Reference Range Interpretation Comments Bili Total (test code = Bili Total) 0.2 0.2-1.3 [facility] [employer]2016-12-22 02:08:00 Test Item Value Reference Range Interpretation Comments Bili Direct (test code 0.1 See_Comment [Aut omated message] The = Bili Direct) system which generated this result tra nsmitted reference range : <=0.3. The reference r leo was not used to int erpret this result as reji l/abnormal. [employer]2016-12-22 02:08:00 Test Item Value Reference Range Interpretation Comments Bili Indirect (test 0.1 See_Comment [Automa rohit message] The code = Bili Indirect) system which generated this result tra nsmitted reference range : <=1.0. The reference r leo was not used to int erpret this result as normal/abnormal . [facility] [employer] [id number] 02:08:00 Test Item Value Reference Range Interpretation Comments Total Protein (test code = Total 5.7 6.4-8.4 Protein) [facility] [id number] 02:08:00 Test Item Value Reference Range Interpretation Comments A/G Ratio (test code = A/G Ratio) 0.5 0.7-1.6 [facility] [employer] [id number] 02:08:00 Test Item Value Reference Range Interpretation Comments Albumin Lvl (test code = Albumin Lvl) 1.8 3.5-5.0 [facility] [id number] 02:08:00 Test Item Value Reference Range Interpretation Comments Globulin (test code = Globulin) 3.9 2.7-4.2 [facility] [employer] [id number] 02:08:00 Test Item Value Reference Range Interpretation Comments Alk Phos (test code = Alk Phos) 99 39-136 [facility] [employer] [id number] 02:08:00 Test Item Value Reference Range Interpretation Comments AST (test code = AST) 21 See_Comment [Auto mated message] The system which ge nerated this result transmit rohit reference range : <=37. The reference range was not used to interpr et this result as reji l/abnormal. [facility] [employer]2016-12-22 02:08:00 Test Item Value Reference Range Interpretation Comments ALT (test code = ALT) 17 See_Comment [Auto mated message] The system which ge nerated this result transmit rohit reference range : <=65. The reference range was not used to interpr et this result as reji l/abnormal. [facility] [employer] [id number] 02:08:00 Test Item Value Reference Range Interpretation Comments UDS Note (test code = See Note *NA*(06/10/16 UDS Note) 8:08 PM) [facility] [employer]2016-12-22 02:08:00 Test Item Value Reference Range Interpretation Comments U Propoxyph Scr (test Negative *NA*(06/10/16 code = U Propoxyph Scr) 8:08 PM) [facility] [id number] 02:08:00 Test Item Value Reference Range Interpretation Comments U Opiate Scr (test Negative *NA*(06/10/16 code = U Opiate Scr) 8:08 PM) [facility] [id number] 02:08:00 Test Item Value Reference Range Interpretation Comments U Methadone Scr (test Negative *NA*(06/10/16 code = U Methadone Scr) 8:08 PM) [facility] [id number] 02:08:00 Test Item Value Reference Range Interpretation Comments U Phencyc Scr (test Negative *NA*(06/10/16 code = U Phencyc Scr) 8:08 PM) [facility] [id number] 02:08:00 Test Item Value Reference Range Interpretation Comments U Cannab Scr (test Negative *NA*(06/10/16 code = U Cannab Scr) 8:08 PM) [facility] [id number] 02:08:00 Test Item Value Reference Range Interpretation Comments U Amph Scr (test code Negative *NA*(06/10/16 = U Amph Scr) 8:08 PM) [facility] [id number] 02:08:00 Test Item Value Reference Range Interpretation Comments U Kelly Scr (test code Negative *NA*(06/10/16 = U Kelly Scr) 8:08 PM) [facility] [id number] 02:08:00 Test Item Value Reference Range Interpretation Comments U Benzodia Scr (test Negative *NA*(06/10/16 code = U Benzodia Scr) 8:08 PM) [facility] [id number] 02:08:00 Test Item Value Reference Range Interpretation Comments U Cocaine Scr (test Negative *NA*(06/10/16 code = U Cocaine Scr) 8:08 PM) [facility] [id number] 02:08:00 Test Item Value Reference Range Interpretation Comments LDL (Calculated) (test code = LDL 75 (Calculated)) [facility] [id number] 02:08:00 Test Item Value Reference Range Interpretation Comments VLDL (test code = VLDL) 27 [facility] [id number] 02:08:00 Test Item Value Reference Range Interpretation Comments Chol (test code = Chol) [id number] 02:08:00 Test Item Value Reference Range Interpretation Comments Trig (test code = Trig) 133 [facility] [id number] 02:08:00 Test Item Value Reference Range Interpretation Comments CHD Risk (test code = CHD Risk) 4.29 3.90-5.80 [facility] LancasterZzueaaeBAWNPH2338-70-27 02:08:00 Test Item Value Reference Range Interpretation Comments HDL (test code = HDL) 31 [facility] AND [id number] 02:08:00 Test Item Value Reference Range Interpretation Comments UA Urobilinogen (test code = UA <=1.0 mg/dL 0.1-1.0 Urobilinogen) [facility] AND [id number] 02:08:00 Test Item Value Reference Range Interpretation Comments UA Ketones (test code = UA Negative mg/dL Ketones) [facility] AND [id number] 02:08:00 Test Item Value Reference Range Interpretation Comments UA Glucose (test code = UA Glucose) 300 mg/dL [facility] AND [id number] 02:08:00 Test Item Value Reference Range Interpretation Comments UA Protein (test code = UA >=300 mg/dL Protein) [facility] AND [id number] 02:08:00 Test Item Value Reference Range Interpretation Comments UA pH (test code = UA pH) 6.0 5.0-8.0 [facility] AND [id number] 02:08:00 Test Item Value Reference Range Interpretation Comments UA Nitrite (test code Negative (06/10/16 8:08 = UA Nitrite) PM) [facility] AND [id number] 02:08:00 Test Item Value Reference Range Interpretation Comments UA Blood (test code = Trace *ABN*(06/10/16 UA Blood) 8:08 PM) [facility] AND [id number] 02:08:00 Test Item Value Reference Range Interpretation Comments UA Bili (test code = Negative *NA*(06/10/16 UA Bili) 8:08 PM) [facility] AND [id number] 02:08:00 Test Item Value Reference Range Interpretation Comments UA Mucus (test code = UA Mucus) Few /LPF [facility] [id number] 02:08:00 Test Item Value Reference Range Interpretation Comments UA RBC (test code = 4 See_Comment [Automa rohit message] The UA RBC) system which ge nerated this result transmit rohit reference range : <=2. The reference range was not used to interpr et this result as reji l/abnormal. [facility] [id number] 02:08:00 Test Item Value Reference Range Interpretation Comments UA Sq Epi (test code = UA Sq Epi) Few /LPF [facility] [id number] 02:08:00 Test Item Value Reference Range Interpretation Comments UA WBC (test code = 5 See_Comment [Automa rohit message] The UA WBC) system which ge nerated this result transmit rohit reference range : <=5. The reference range was not used to interpr et this result as reji l/abnormal. [facility] [id number] 02:08:00 Test Item Value Reference Range Interpretation Comments UA Leuk Est (test code Small *ABN*(06/10/16 = UA Leuk Est) 8:08 PM) [facility] [id number] 02:08:00 Test Item Value Reference Range Interpretation Comments UA Hyal Cast (test 1 See_Comment [Automat ed message] The code = UA Hyal Cast) system which generated this result transmit rohit reference range : <=2. The reference range was not used to interpr et this result as reji l/abnormal. [facility] [id number] 02:08:00 Test Item Value Reference Range Interpretation Comments UA Spec Grav (test code = UA Spec Grav) 1.009 [facility] [id number] 02:08:00 Test Item Value Reference Range Interpretation Comments UA Color (test code = Yellow *NA*(06/10/16 UA Color) 8:08 PM) [facility] [id number] 02:08:00 Test Item Value Reference Range Interpretation Comments UA Turbidity (test code = Clear (06/10/16 8:08 UA Turbidity) PM) [facility] [id number] 02:08:00 Test Item Value Reference Range Interpretation Comments U Preg (test code = U Negative (06/10/16 8:08 Preg) PM) [facility] [id number] 02:08:00 Test Item Value Reference Range Interpretation Comments U Protein (test code = U Protein) 375.4 [facility] [id number] 02:08:00 Test Item Value Reference Range Interpretation Comments U Prot/Creat (test code = U Prot/Creat) 5.4 [facility] [id number] 02:08:00 Test Item Value Reference Range Interpretation Comments U Creatinine (test code = U Creatinine) 69.80 [facility] [id number] 02:08:00 Test Item Value Reference Range Interpretation Comments CK MB Index (test 1.8 See_Comment [Automate d message] The code = CK MB Index) system w [facility] generated this result transmit rohit reference range : <=2.5. The reference range was not used to interpr et this result as reji l/abnormal. [facility] [employer] [id number] 02:08:00 Test Item Value Reference Range Interpretation Comments CK MB (test code = CK MB) 2.9 0.5-3.6 [facility] CareannCARGeMeTec MetrologyAC [id number] 02:08:00 Test Item Value Reference Range Interpretation Comments Troponin-T (test code 0.061 See_Comment [Auto mated message] The = Troponin-T) system which g enerated this result transmit rohit reference range : <=0.100. The reference r leo was not used to interpr et this result as reji l/abnormal. [facility] [id number] 02:08:00 Test Item Value Reference Range Interpretation Comments Total CK (test code = Total CK) 159 12-191 [facility] [id number] 02:08:00 Test Item Value Reference Range Interpretation Comments Troponin-I (test code no gt See_Comment [Auto mated message] The = Troponin-I) system which g enerated this result transmit rohit reference range : <=0.40. The reference r leo was not used to interpr et this result as reji l/abnormal. [facility] ResourcesCHEM [id number] 02:08:00 Test Item Value Reference Range Interpretation Comments Bili Total (test code = Bili Total) 0.2 0.2-1.3 [place] [id number] 02:08:00 Test Item Value Reference Range Interpretation Comments Bili Direct (test code 0.1 See_Comment [Aut omated message] The = Bili Direct) system which generated this result tra nsmitted reference range : <=0.3. The reference r leo was not used to int erpret this result as reji l/abnormal. [place] [id number] 02:08:00 Test Item Value Reference Range Interpretation Comments Bili Indirect (test 0.1 See_Comment [Automa rohit message] The code = Bili Indirect) system which generated this result tra nsmitted reference range : <=1.0. The reference r leo was not used to int erpret this result as normal/abnormal . [facility]2016-12-22 02:08:00 Test Item Value Reference Range Interpretation Comments Total Protein (test code = Total 5.7 6.4-8.4 Protein) [place] [id number] 02:08:00 Test Item Value Reference Range Interpretation Comments A/G Ratio (test code = A/G Ratio) 0.5 0.7-1.6 [place] [id number] 02:08:00 Test Item Value Reference Range Interpretation Comments Albumin Lvl (test code = Albumin Lvl) 1.8 3.5-5.0 [facility]2016-12-22 02:08:00 Test Item Value Reference Range Interpretation Comments Globulin (test code = Globulin) 3.9 2.7-4.2 [facility]2016-12-22 02:08:00 Test Item Value Reference Range Interpretation Comments Alk Phos (test code = Alk Phos) 99 39-136 [facility]2016-12-22 02:08:00 Test Item Value Reference Range Interpretation Comments AST (test code = AST) 21 See_Comment [Auto mated message] The system which ge nerated this result transmit rohit reference range : <=37. The reference range was not used to interpr et this result as reji l/abnormal. [place] [id number] 02:08:00 Test Item Value Reference Range Interpretation Comments ALT (test code = ALT) 17 See_Comment [Auto mated message] The system which ge nerated this result transmit rohit reference range : <=65. The reference range was not used to interpr et this result as reji l/abnormal. [facility] [id number] 02:08:00 Test Item Value Reference Range Interpretation Comments UDS Note (test code = See Note *NA*(06/10/16 UDS Note) 8:08 PM) [facility] [id number] 02:08:00 Test Item Value Reference Range Interpretation Comments U Propoxyph Scr (test Negative *NA*(06/10/16 code = U Propoxyph Scr) 8:08 PM) [facility] [id number] 02:08:00 Test Item Value Reference Range Interpretation Comments U Opiate Scr (test Negative *NA*(06/10/16 code = U Opiate Scr) 8:08 PM) [facility] [id number] 02:08:00 Test Item Value Reference Range Interpretation Comments U Methadone Scr (test Negative *NA*(06/10/16 code = U Methadone Scr) 8:08 PM) [facility] [id number] 02:08:00 Test Item Value Reference Range Interpretation Comments U Phencyc Scr (test Negative *NA*(06/10/16 code = U Phencyc Scr) 8:08 PM) [facility] [id number] 02:08:00 Test Item Value Reference Range Interpretation Comments U Cannab Scr (test Negative *NA*(06/10/16 code = U Cannab Scr) 8:08 PM) [facility] [id number] 02:08:00 Test Item Value Reference Range Interpretation Comments U Amph Scr (test code Negative *NA*(06/10/16 = U Amph Scr) 8:08 PM) [facility] [id number] 02:08:00 Test Item Value Reference Range Interpretation Comments U Kelly Scr (test code Negative *NA*(06/10/16 = U Kelly Scr) 8:08 PM) [facility] [id number] 02:08:00 Test Item Value Reference Range Interpretation Comments U Benzodia Scr (test Negative *NA*(06/10/16 code = U Benzodia Scr) 8:08 PM) [facility] [id number] 02:08:00 Test Item Value Reference Range Interpretation Comments U Cocaine Scr (test Negative *NA*(06/10/16 code = U Cocaine Scr) 8:08 PM) [facility] [id number] 02:08:00 Test Item Value Reference Range Interpretation Comments LDL (Calculated) (test code = LDL 75 (Calculated)) [facility] [id number] 02:08:00 Test Item Value Reference Range Interpretation Comments VLDL (test code = VLDL) 27 [facility] PduuezpZVOLOY1511-13-67 02:08:00 Test Item Value Reference Range Interpretation Comments Chol (test code = Chol) 133 [facility] [id number] 02:08:00 Test Item Value Reference Range Interpretation Comments Trig (test code = Trig) 133 [facility] NglwjeyYOCVIG7320-81-35 02:08:00 Test Item Value Reference Range Interpretation Comments CHD Risk (test code = CHD Risk) 4.29 3.90-5.80 [facility] KloxdbvYJLBUZ2210-13-13 02:08:00 Test Item Value Reference Range Interpretation Comments HDL (test code = HDL) 31 [facility] [id number] 02:08:00 Test Item Value Reference Range Interpretation Comments UA Urobilinogen (test code = UA <=1.0 mg/dL 0.1-1.0 Urobilinogen) [facility] [id number] 02:08:00 Test Item Value Reference Range Interpretation Comments UA Ketones (test code = UA Negative mg/dL Ketones) [facility] [id number] 02:08:00 Test Item Value Reference Range Interpretation Comments UA Glucose (test code = UA Glucose) 300 mg/dL [facility] [id number] 02:08:00 Test Item Value Reference Range Interpretation Comments UA Protein (test code = UA >=300 mg/dL Protein) [facility] [id number] 02:08:00 Test Item Value Reference Range Interpretation Comments UA pH (test code = UA pH) 6.0 5.0-8.0 [facility] [id number] 02:08:00 Test Item Value Reference Range Interpretation Comments UA Nitrite (test code Negative (06/10/16 8:08 = UA Nitrite) PM) [facility] [id number] 02:08:00 Test Item Value Reference Range Interpretation Comments UA Blood (test code = Trace *ABN*(06/10/16 UA Blood) 8:08 PM) [facility] [id number] 02:08:00 Test Item Value Reference Range Interpretation Comments UA Bili (test code = Negative *NA*(06/10/16 UA Bili) 8:08 PM) [facility] [id number] 02:08:00 Test Item Value Reference Range Interpretation Comments UA Mucus (test code = UA Mucus) Few /LPF [facility] [id number] 02:08:00 Test Item Value Reference Range Interpretation Comments UA RBC (test code = 4 See_Comment [Automa rohit message] The UA RBC) system which ge nerated this result transmit rohit reference range : <=2. The reference range was not used to interpr et this result as reji l/abnormal. [facility] [id number] 02:08:00 Test Item Value Reference Range Interpretation Comments UA Sq Epi (test code = UA Sq Epi) Few /LPF [facility] [id number] 02:08:00 Test Item Value Reference Range Interpretation Comments UA WBC (test code = 5 See_Comment [Automa rohit message] The UA WBC) system which ge nerated this result transmit rohit reference range : <=5. The reference range was not used to interpr et this result as reji l/abnormal. [facility] [id number] 02:08:00 Test Item Value Reference Range Interpretation Comments UA Leuk Est (test code Small *ABN*(06/10/16 = UA Leuk Est) 8:08 PM) [facility] [id number] 02:08:00 Test Item Value Reference Range Interpretation Comments UA Hyal Cast (test 1 See_Comment [Automat ed message] The code = UA Hyal Cast) system which generated this result transmit rohit reference range : <=2. The reference range was not used to interpr et this result as reji l/abnormal. [facility] [id number] 02:08:00 Test Item Value Reference Range Interpretation Comments UA Spec Grav (test code = UA Spec Grav) 1.009 [facility] AND [id number] 02:08:00 Test Item Value Reference Range Interpretation Comments UA Color (test code = Yellow *NA*(06/10/16 UA Color) 8:08 PM) [facility] AND [id number] 02:08:00 Test Item Value Reference Range Interpretation Comments UA Turbidity (test code = Clear (06/10/16 8:08 UA Turbidity) PM) [facility] [id number] 02:08:00 Test Item Value Reference Range Interpretation Comments U Preg (test code = U Negative (06/10/16 8:08 Preg) PM) [facility] [id number] 02:08:00 Test Item Value Reference Range Interpretation Comments U Protein (test code = U Protein) 375.4 [facility] [id number] 02:08:00 Test Item Value Reference Range Interpretation Comments U Prot/Creat (test code = U Prot/Creat) 5.4 [facility] [id number] 02:08:00 Test Item Value Reference Range Interpretation Comments U Creatinine (test code = U Creatinine) 69.80 [facility] VinCARDIAC [id number] 16:53:00 Test Item Value Reference Range Interpretation Comments BNP (test code = BNP) 1135 [facility] [id number] 16:53:00 Test Item Value Reference Range Interpretation Comments Troponin-I (test code no gt See_Comment [Auto mated message] The = Troponin-I) system which g enerated this result transmit rohit reference range : <=0.40. The reference r leo was not used to interpr et this result as reji l/abnormal. [facility] [id number] 16:53:00 Test Item Value Reference Range Interpretation Comments BNP (test code = BNP) 1135 [facility] [id number] 16:53:00 Test Item Value Reference Range Interpretation Comments Troponin-I (test code no gt See_Comment [Auto mated message] The = Troponin-I) system which g enerated this result transmit rohit reference range : <=0.40. The reference r leo was not used to interpr et this result as reji l/abnormal. [facility]2016-12-21 16:53:00 Test Item Value Reference Range Interpretation Comments BNP (test code = BNP) 1135 [facility]2016-12-21 16:53:00 Test Item Value Reference Range Interpretation Comments Troponin-I (test code no gt See_Comment [Auto mated message] The = Troponin-I) system which g enerated this result transmit rohit reference range : <=0.40. The reference r leo was not used to interpr et this result as reji l/abnormal. [facility]2016-12-21 16:53:00 Test Item Value Reference Range Interpretation Comments BNP (test code = BNP) 1135 [facility]2016-12-21 16:53:00 Test Item Value Reference Range Interpretation Comments Troponin-I (test code no gt See_Comment [Auto mated message] The = Troponin-I) system which g enerated this result transmit rohit reference range : <=0.40. The reference r leo was not used to interpr et this result as reji l/abnormal. [facility]2016-12-21 16:53:00 Test Item Value Reference Range Interpretation Comments BNP (test code = BNP) 1135 [facility]2016-12-21 16:53:00 Test Item Value Reference Range Interpretation Comments Troponin-I (test code no gt See_Comment [Auto mated message] The = Troponin-I) system which g enerated this result transmit rohit reference range : <=0.40. The reference r leo was not used to interpr et this result as reji l/abnormal. [facility] [employer] [id number] 13:02:00 Test Item Value Reference Range Interpretation Comments Lactic Acid WB (test code = Lactic Acid 0.9 0.5-2.2 WB) [facility] [employer] [id number] 13:02:00 Test Item Value Reference Range Interpretation Comments Lactic Acid WB (test code = Lactic Acid 0.9 0.5-2.2 WB) [facility] [employer] [id number] 13:02:00 Test Item Value Reference Range Interpretation Comments Lactic Acid WB (test code = Lactic Acid 0.9 0.5-2.2 WB) [facility] [employer] [id number] 13:02:00 Test Item Value Reference Range Interpretation Comments Lactic Acid WB (test code = Lactic Acid 0.9 0.5-2.2 WB) [facility]2015-01-06 13:02:00 Test Item Value Reference Range Interpretation Comments Lactic Acid WB (test code = Lactic Acid 0.9 0.5-2.2 WB) [place] [id number] 12:29:44 Test Item Value Reference Range Interpretation Comments Valproic Acid Lvl (test code = Valproic 10 50-100 Acid Lvl) [place] [id number] 12:29:44 Test Item Value Reference Range Interpretation Comments Valproic Acid Lvl (test code = Valproic 10 50-100 Acid Lvl) [place] [id number] 12:29:44 Test Item Value Reference Range Interpretation Comments Valproic Acid Lvl (test code = Valproic 10 50-100 Acid Lvl) [place] [id number] 12:29:44 Test Item Value Reference Range Interpretation Comments Valproic Acid Lvl (test code = Valproic 10 50-100 Acid Lvl) [place] [id number] 12:29:44 Test Item Value Reference Range Interpretation Comments Valproic Acid Lvl (test code = Valproic 10 50-100 Acid Lvl) [place] [id number] 11:21:27 Test Item Value Reference Range Interpretation Comments hCG Tot (test code = hCG Tot) 1 [place] [id number] 11:21:27 Test Item Value Reference Range Interpretation Comments hCG Tot (test code = hCG Tot) 1 [place] [id number] 11:21:27 Test Item Value Reference Range Interpretation Comments hCG Tot (test code = hCG Tot) 1 [place] [id number] 11:21:27 Test Item Value Reference Range Interpretation Comments hCG Tot (test code = hCG Tot) 1 [place] [id number] 11:21:27 Test Item Value Reference Range Interpretation Comments hCG Tot (test code = hCG Tot) 1 [facility]2015-01-06 11:21:00 Test Item Value Reference Range Interpretation Comments Albumin Lvl (test code = Albumin Lvl) 3.2 3.5-5.0 [facility]2015-01-06 11:21:00 Test Item Value Reference Range Interpretation Comments Total Protein (test code = Total 6.6 6.4-8.4 Protein) [facility]2015-01-06 11:21:00 Test Item Value Reference Range Interpretation Comments Bili Total (test code = Bili Total) 0.6 0.2-1.3 [facility]2015-01-06 11:21:00 Test Item Value Reference Range Interpretation Comments Alk Phos (test code = Alk Phos) 59 39-136 [facility]2015-01-06 11:21:00 Test Item Value Reference Range Interpretation Comments AST (test code = AST) 11 See_Comment [Auto mated message] The system which ge nerated this result transmit rohit reference range : <=37. The reference range was not used to interpr et this result as reji l/abnormal. [facility]2015-01-06 11:21:00 Test Item Value Reference Range Interpretation Comments ALT (test code = ALT) 17 See_Comment [Auto mated message] The system which ge nerated this result transmit rohit reference range : <=65. The reference range was not used to interpr et this result as reji l/abnormal. [facility]2015-01-06 11:21:00 Test Item Value Reference Range Interpretation Comments eGFR (test code = eGFR) 99 [facility]2015-01-06 11:21:00 Test Item Value Reference Range Interpretation Comments Glucose Lvl (test code = Glucose Lvl) 314 70-99 [facility]2015-01-06 11:21:00 Test Item Value Reference Range Interpretation Comments Potassium Lvl (test code = Potassium 3.4 3.5-5.1 Lvl) [facility]2015-01-06 11:21:00 Test Item Value Reference Range Interpretation Comments BUN (test code = BUN) 11 7-22 [facility]2015-01-06 11:21:00 Test Item Value Reference Range Interpretation Comments Creatinine Lvl (test code = Creatinine 0.8 0.5-1.4 Lvl) [facility]2015-01-06 11:21:00 Test Item Value Reference Range Interpretation Comments Sodium Lvl (test code = Sodium Lvl) 134 135-145 [facility]2015-01-06 11:21:00 Test Item Value Reference Range Interpretation Comments Chloride Lvl (test code = Chloride Lvl) 94 95-109 [facility]2015-01-06 11:21:00 Test Item Value Reference Range Interpretation Comments Calcium Lvl (test code = Calcium Lvl) 9.1 8.5-10.5 [facility]2015-01-06 11:21:00 Test Item Value Reference Range Interpretation Comments CO2 (test code = CO2) 24 24-32 [facility]2015-01-06 11:21:00 Test Item Value Reference Range Interpretation Comments A/G Ratio (test code = A/G Ratio) 0.9 0.7-1.6 [facility]2015-01-06 11:21:00 Test Item Value Reference Range Interpretation Comments Globulin (test code = Globulin) 3.4 2.0-4.0 [facility]2015-01-06 11:21:00 Test Item Value Reference Range Interpretation Comments B/C Ratio (test code = B/C Ratio) 14 6-25 [facility]2015-01-06 11:21:00 Test Item Value Reference Range Interpretation Comments AGAP (test code = AGAP) 19.4 10.0-20.0 [facility]2015-01-06 11:21:00 Test Item Value Reference Range Interpretation Comments Lipase Lvl (test code = Lipase Lvl) 81 73-393 [facility] StationQlrmedlTKABVLSLRF4822-09-17 11:21:00 Test Item Value Reference Range Interpretation Comments Large Plt (test code = Large Plt) Slight [facility] StationCbsdbcdOTKVWYYQSD6703-94-06 11:21:00 Test Item Value Reference Range Interpretation Comments Basophils # (test code 0.0 See_Comment [Aut omated message] The = Basophils #) system which generated this result tra nsmitted reference range : <=0.2. The reference r leo was not used to int erpret this result as normal/abnormal . [facility] StationVyxzaowJJMTGLAHVZ1530-57-60 11:21:00 Test Item Value Reference Range Interpretation Comments Anisocyte (test code = 1+ *ABN*(06/26/14 5:21 Anisocyte) AM) [facility] StationJbpvehnYZVECLNBUV2849-15-21 11:21:00 Test Item Value Reference Range Interpretation Comments Monocytes # (test code 0.6 See_Comment [Aut omated message] The = Monocytes #) system which generated this result tra nsmitted reference range : <=0.8. The reference r leo was not used to int erpret this result as normal/abnormal . [facility] StationKdldiibGZRTVLVVJU7354-55-49 11:21:00 Test Item Value Reference Range Interpretation Comments Eosinophils # (test code 0.1 See_Comment [A utomated message] The = Eosinophils #) system whic h generated this result tra nsmitted reference range : <=0.5. The reference r leo was not used to int erpret this result as normal/abnormal . [facility] StationCidjwevUCGTFVAGPG7456-70-11 11:21:00 Test Item Value Reference Range Interpretation Comments Lymphocytes # (test code = Lymphocytes 2.5 1.0-5.5 #) [facility] StationOdbvkbwAAUSYTGRIF6393-10-52 11:21:00 Test Item Value Reference Range Interpretation Comments Segs (test code = Segs) 63.3 45.0-75.0 [facility] StationWkoryqdDRFPQXGFOY1721-78-84 11:21:00 Test Item Value Reference Range Interpretation Comments Segs-Bands # (test code = Segs-Bands #) 5.6 1.5-8.1 [facility] StationSwngyymLPBAJWSIEM8083-03-37 11:21:00 Test Item Value Reference Range Interpretation Comments Basophils (test code = 0.0 See_Comment [Aut omated message] The Basophils) system which ge nerated this result tra nsmitted reference range : <=1.0. The reference r leo was not used to int erpret this result as normal/abnormal . [facility] StationKpascjeQZNRSYTPAN4434-73-15 11:21:00 Test Item Value Reference Range Interpretation Comments Eosinophils (test code = 0.9 See_Comment [A utomated message] The Eosinophils) system which ge nerated this result tra nsmitted reference range : <=4.0. The reference r leo was not used to int erpret this result as normal/abnormal . [facility] StationZmiitcvQCWLZNWJMF5750-83-53 11:21:00 Test Item Value Reference Range Interpretation Comments Monocytes (test code = Monocytes) 7.0 2.0-12.0 [facility]MpbsbloHGSQAJJZSP4388-42-87 11:21:00 Test Item Value Reference Range Interpretation Comments Lymphocytes (test code = Lymphocytes) 28.8 20.0-40.0 [facility]OhgxnbrGCNWGJVCHB9217-04-85 11:21:00 Test Item Value Reference Range Interpretation Comments WBC (test code = WBC) 8.8 3.7-10.4 [facility]XwcrmbqBRBMCEMYBX1707-21-58 11:21:00 Test Item Value Reference Range Interpretation Comments RBC (test code = RBC) 5.19 4.20-5.40 [facility]burgVpqxofrDPDDIBDUOE8110-30-94 11:21:00 Test Item Value Reference Range Interpretation Comments Hgb (test code = Hgb) 14.4 12.0-16.0 [facility] HospitalKwvukmcPJXNGLLTVI8427-60-78 11:21:00 Test Item Value Reference Range Interpretation Comments Hct (test code = Hct) 43.1 36.0-48.0 [facility] HospitalBthqzyjNUPJRGJWXY7806-52-18 11:21:00 Test Item Value Reference Range Interpretation Comments MCV (test code = MCV) 83.1 80.0-98.0 [facility]burgLaqzvpyZEDWXEWDIC4236-45-38 11:21:00 Test Item Value Reference Range Interpretation Comments MCH (test code = MCH) 27.8 pg 27.0-31.0 [facility] HospitalWbulrigLCXEIFKIFM7490-15-08 11:21:00 Test Item Value Reference Range Interpretation Comments RDW (test code = RDW) 13.1 11.5-14.5 [facility] HospitalYudwidlSRYPFLILRO8522-38-52 11:21:00 Test Item Value Reference Range Interpretation Comments MCHC (test code = MCHC) 33.5 32.0-36.0 [facility]inburgIcorznvOEUWKDDKIB8978-94-26 11:21:00 Test Item Value Reference Range Interpretation Comments Platelet (test code = Platelet) 201 133-450 [facility] EdinburgAjfawtpEJOQOYDPHM6376-46-82 11:21:00 Test Item Value Reference Range Interpretation Comments MPV (test code = MPV) 10.4 7.4-10.4 [facility]2015-01-06 11:21:00 Test Item Value Reference Range Interpretation Comments Albumin Lvl (test code = Albumin Lvl) 3.2 3.5-5.0 [facility]2015-01-06 11:21:00 Test Item Value Reference Range Interpretation Comments Total Protein (test code = Total 6.6 6.4-8.4 Protein) [facility]2015-01-06 11:21:00 Test Item Value Reference Range Interpretation Comments Bili Total (test code = Bili Total) 0.6 0.2-1.3 [facility]2015-01-06 11:21:00 Test Item Value Reference Range Interpretation Comments Alk Phos (test code = Alk Phos) 59 39-136 [facility]2015-01-06 11:21:00 Test Item Value Reference Range Interpretation Comments AST (test code = AST) 11 See_Comment [Auto mated message] The system which ge nerated this result transmit rohit reference range : <=37. The reference range was not used to interpr et this result as reji l/abnormal. [facility]2015-01-06 11:21:00 Test Item Value Reference Range Interpretation Comments ALT (test code = ALT) 17 See_Comment [Auto mated message] The system which ge nerated this result transmit rohit reference range : <=65. The reference range was not used to interpr et this result as reji l/abnormal. [facility]2015-01-06 11:21:00 Test Item Value Reference Range Interpretation Comments eGFR (test code = eGFR) 99 [facility]2015-01-06 11:21:00 Test Item Value Reference Range Interpretation Comments Glucose Lvl (test code = Glucose Lvl) 314 70-99 [facility]2015-01-06 11:21:00 Test Item Value Reference Range Interpretation Comments Potassium Lvl (test code = Potassium 3.4 3.5-5.1 Lvl) [facility]2015-01-06 11:21:00 Test Item Value Reference Range Interpretation Comments BUN (test code = BUN) 11 7-22 [facility]2015-01-06 11:21:00 Test Item Value Reference Range Interpretation Comments Creatinine Lvl (test code = Creatinine 0.8 0.5-1.4 Lvl) [facility]2015-01-06 11:21:00 Test Item Value Reference Range Interpretation Comments Sodium Lvl (test code = Sodium Lvl) 134 135-145 [facility]2015-01-06 11:21:00 Test Item Value Reference Range Interpretation Comments Chloride Lvl (test code = Chloride Lvl) 94 95-109 [facility]2015-01-06 11:21:00 Test Item Value Reference Range Interpretation Comments Calcium Lvl (test code = Calcium Lvl) 9.1 8.5-10.5 [facility]2015-01-06 11:21:00 Test Item Value Reference Range Interpretation Comments CO2 (test code = CO2) 24 24-32 [facility]2015-01-06 11:21:00 Test Item Value Reference Range Interpretation Comments A/G Ratio (test code = A/G Ratio) 0.9 0.7-1.6 [facility]2015-01-06 11:21:00 Test Item Value Reference Range Interpretation Comments Globulin (test code = Globulin) 3.4 2.0-4.0 [facility]2015-01-06 11:21:00 Test Item Value Reference Range Interpretation Comments B/C Ratio (test code = B/C Ratio) 14 6-25 [facility]2015-01-06 11:21:00 Test Item Value Reference Range Interpretation Comments AGAP (test code = AGAP) 19.4 10.0-20.0 [facility]2015-01-06 11:21:00 Test Item Value Reference Range Interpretation Comments Lipase Lvl (test code = Lipase Lvl) 81 73-393 [facility] StationGfflauyGGBFYWOZKO0879-00-00 11:21:00 Test Item Value Reference Range Interpretation Comments Large Plt (test code = Large Plt) Slight [facility] StationBvnzzrdXGCKTOMDIC8456-40-51 11:21:00 Test Item Value Reference Range Interpretation Comments Basophils # (test code 0.0 See_Comment [Aut omated message] The = Basophils #) system which generated this result tra nsmitted reference range : <=0.2. The reference r leo was not used to int erpret this result as normal/abnormal . [facility] StationGqfrbniGMJOSNETIQ7008-12-67 11:21:00 Test Item Value Reference Range Interpretation Comments Anisocyte (test code = 1+ *ABN*(06/26/14 5:21 Anisocyte) AM) [facility] StationJbaxvsgRZJMXMGYAH5032-97-02 11:21:00 Test Item Value Reference Range Interpretation Comments Monocytes # (test code 0.6 See_Comment [Aut omated message] The = Monocytes #) system which generated this result tra nsmitted reference range : <=0.8. The reference r leo was not used to int erpret this result as normal/abnormal . [facility] StationYjeqlyjBALNWSNSPO8485-21-45 11:21:00 Test Item Value Reference Range Interpretation Comments Eosinophils # (test code 0.1 See_Comment [A utomated message] The = Eosinophils #) system whic h generated this result tra nsmitted reference range : <=0.5. The reference r leo was not used to int erpret this result as normal/abnormal . [facility] StationPjwjtvyEJSJLCILIP7925-22-88 11:21:00 Test Item Value Reference Range Interpretation Comments Lymphocytes # (test code = Lymphocytes 2.5 1.0-5.5 #) [facility] StationCokkyrxLWDGJAJLZC8048-92-06 11:21:00 Test Item Value Reference Range Interpretation Comments Segs (test code = Segs) 63.3 45.0-75.0 [facility] StationKwjflixLUFTDMXHHI7050-23-20 11:21:00 Test Item Value Reference Range Interpretation Comments Segs-Bands # (test code = Segs-Bands #) 5.6 1.5-8.1 [facility] StationBizorspBTZMIFHEPQ9454-45-70 11:21:00 Test Item Value Reference Range Interpretation Comments Basophils (test code = 0.0 See_Comment [Aut omated message] The Basophils) system which ge nerated this result tra nsmitted reference range : <=1.0. The reference r leo was not used to int erpret this result as normal/abnormal . [facility] StationYqqwlgqABWNJAYFSP4523-93-88 11:21:00 Test Item Value Reference Range Interpretation Comments Eosinophils (test code = 0.9 See_Comment [A utomated message] The Eosinophils) system which ge nerated this result tra nsmitted reference range : <=4.0. The reference r leo was not used to int erpret this result as normal/abnormal . [facility] StationHxafuzrIUONZUXFYD9437-11-07 11:21:00 Test Item Value Reference Range Interpretation Comments Monocytes (test code = Monocytes) 7.0 2.0-12.0 [facility] StationXexzbknNGTYWJLZWC3030-50-93 11:21:00 Test Item Value Reference Range Interpretation Comments Lymphocytes (test code = Lymphocytes) 28.8 20.0-40.0 [facility] StationNwldmmkOXAGIWEPZX2586-38-68 11:21:00 Test Item Value Reference Range Interpretation Comments WBC (test code = WBC) 8.8 3.7-10.4 [facility] StationLxruteaRIKRVYEFSK2588-85-43 11:21:00 Test Item Value Reference Range Interpretation Comments RBC (test code = RBC) 5.19 4.20-5.40 [facility] StationUexyyjbJCYPQRWWSP1317-28-19 11:21:00 Test Item Value Reference Range Interpretation Comments Hgb (test code = Hgb) 14.4 12.0-16.0 [facility] StationNdkfbzvFZTDZGJYRN8441-09-93 11:21:00 Test Item Value Reference Range Interpretation Comments Hct (test code = Hct) 43.1 36.0-48.0 [facility] StationSexrpmfBOKKRRNGLZ5313-02-06 11:21:00 Test Item Value Reference Range Interpretation Comments MCV (test code = MCV) 83.1 80.0-98.0 [facility] StationUiuegigQUWLJYBWQT9096-82-91 11:21:00 Test Item Value Reference Range Interpretation Comments MCH (test code = MCH) 27.8 pg 27.0-31.0 [facility] StationAvzmwbsQQMIIMKZTD0367-77-18 11:21:00 Test Item Value Reference Range Interpretation Comments RDW (test code = RDW) 13.1 11.5-14.5 [facility] StationYwujpigIFBDNJGLQC7182-24-56 11:21:00 Test Item Value Reference Range Interpretation Comments MCHC (test code = MCHC) 33.5 32.0-36.0 [facility] StationGtnofdrZCOHMFVJMF3456-10-54 11:21:00 Test Item Value Reference Range Interpretation Comments Platelet (test code = Platelet) 201 133-450 [facility] StationVdgqzdaCMSXTGGXRP1249-80-81 11:21:00 Test Item Value Reference Range Interpretation Comments MPV (test code = MPV) 10.4 7.4-10.4 [facility]2015-01-06 11:21:00 Test Item Value Reference Range Interpretation Comments Albumin Lvl (test code = Albumin Lvl) 3.2 3.5-5.0 [facility] IYKJV3059-35-93 11:21:00 Test Item Value Reference Range Interpretation Comments Total Protein (test code = Total 6.6 6.4-8.4 Protein) [facility]2015-01-06 11:21:00 Test Item Value Reference Range Interpretation Comments Bili Total (test code = Bili Total) 0.6 0.2-1.3 [place] 917535-01-06 11:21:00 Test Item Value Reference Range Interpretation Comments Alk Phos (test code = Alk Phos) 59 39-136 [facility]2015-01-06 11:21:00 Test Item Value Reference Range Interpretation Comments AST (test code = AST) 11 See_Comment [Auto mated message] The system which ge nerated this result transmit rohit reference range : <=37. The reference range was not used to interpr et this result as reji l/abnormal. [facility]2015-01-06 11:21:00 Test Item Value Reference Range Interpretation Comments ALT (test code = ALT) 17 See_Comment [Auto mated message] The system which ge nerated this result transmit rohit reference range : <=65. The reference range was not used to interpr et this result as reji l/abnormal. [facility]2015-01-06 11:21:00 Test Item Value Reference Range Interpretation Comments eGFR (test code = eGFR) 99 [facility]2015-01-06 11:21:00 Test Item Value Reference Range Interpretation Comments Glucose Lvl (test code = Glucose Lvl) 314 70-99 [facility]2015-01-06 11:21:00 Test Item Value Reference Range Interpretation Comments Potassium Lvl (test code = Potassium 3.4 3.5-5.1 Lvl) [facility]2015-01-06 11:21:00 Test Item Value Reference Range Interpretation Comments BUN (test code = BUN) 11 7-22 [facility]2015-01-06 11:21:00 Test Item Value Reference Range Interpretation Comments Creatinine Lvl (test code = Creatinine 0.8 0.5-1.4 Lvl) [facility]2015-01-06 11:21:00 Test Item Value Reference Range Interpretation Comments Sodium Lvl (test code = Sodium Lvl) 134 135-145 [facility]2015-01-06 11:21:00 Test Item Value Reference Range Interpretation Comments Chloride Lvl (test code = Chloride Lvl) 94 95-109 [facility]2015-01-06 11:21:00 Test Item Value Reference Range Interpretation Comments Calcium Lvl (test code = Calcium Lvl) 9.1 8.5-10.5 [facility]2015-01-06 11:21:00 Test Item Value Reference Range Interpretation Comments CO2 (test code = CO2) 24 24-32 [facility]2015-01-06 11:21:00 Test Item Value Reference Range Interpretation Comments A/G Ratio (test code = A/G Ratio) 0.9 0.7-1.6 [facility]2015-01-06 11:21:00 Test Item Value Reference Range Interpretation Comments Globulin (test code = Globulin) 3.4 2.0-4.0 [facility]2015-01-06 11:21:00 Test Item Value Reference Range Interpretation Comments B/C Ratio (test code = B/C Ratio) 14 6-25 [facility]2015-01-06 11:21:00 Test Item Value Reference Range Interpretation Comments AGAP (test code = AGAP) 19.4 10.0-20.0 [facility]2015-01-06 11:21:00 Test Item Value Reference Range Interpretation Comments Lipase Lvl (test code = Lipase Lvl) 81 73-393 [facility] StationWqgunoaRKMEUAWVFR8878-07-43 11:21:00 Test Item Value Reference Range Interpretation Comments Large Plt (test code = Large Plt) Slight [facility] StationUuczhinBWWZPCHORI6184-20-60 11:21:00 Test Item Value Reference Range Interpretation Comments Basophils # (test code 0.0 See_Comment [Aut omated message] The = Basophils #) system which generated this result tra nsmitted reference range : <=0.2. The reference r leo was not used to int erpret this result as normal/abnormal . [facility] StationWnqeyvjYQLRKWEUCU6235-29-65 11:21:00 Test Item Value Reference Range Interpretation Comments Anisocyte (test code = 1+ *ABN*(06/26/14 5:21 Anisocyte) AM) [facility] StationUyeblvzWRSMPHPWMX9891-56-24 11:21:00 Test Item Value Reference Range Interpretation Comments Monocytes # (test code 0.6 See_Comment [Aut omated message] The = Monocytes #) system which generated this result tra nsmitted reference range : <=0.8. The reference r leo was not used to int erpret this result as normal/abnormal . [facility] StationDmknbmcOBHPVEGMLU3571-87-77 11:21:00 Test Item Value Reference Range Interpretation Comments Eosinophils # (test code 0.1 See_Comment [A utomated message] The = Eosinophils #) system whic h generated this result tra nsmitted reference range : <=0.5. The reference r leo was not used to int erpret this result as normal/abnormal . [facility] StationUqikcteDVKMEVKYZR0479-71-91 11:21:00 Test Item Value Reference Range Interpretation Comments Lymphocytes # (test code = Lymphocytes 2.5 1.0-5.5 #) [facility] StationZketvduFYGRUFZHAR1913-89-35 11:21:00 Test Item Value Reference Range Interpretation Comments Segs (test code = Segs) 63.3 45.0-75.0 [facility] StationNigqxztKVUIDUVHWQ8044-34-21 11:21:00 Test Item Value Reference Range Interpretation Comments Segs-Bands # (test code = Segs-Bands #) 5.6 1.5-8.1 [facility] StationTjbxoxeAXPBJYUEML2025-50-28 11:21:00 Test Item Value Reference Range Interpretation Comments Basophils (test code = 0.0 See_Comment [Aut omated message] The Basophils) system which ge nerated this result tra nsmitted reference range : <=1.0. The reference r leo was not used to int erpret this result as normal/abnormal . [facility] StationFegizdhYVUBIZZRCZ0891-08-62 11:21:00 Test Item Value Reference Range Interpretation Comments Eosinophils (test code = 0.9 See_Comment [A utomated message] The Eosinophils) system which ge nerated this result tra nsmitted reference range : <=4.0. The reference r leo was not used to int erpret this result as normal/abnormal . [facility] StationNsuptorPLDTFBSDRL1734-04-38 11:21:00 Test Item Value Reference Range Interpretation Comments Monocytes (test code = Monocytes) 7.0 2.0-12.0 [facility] StationNkuucaqMYUKWGZFOR1481-51-76 11:21:00 Test Item Value Reference Range Interpretation Comments Lymphocytes (test code = Lymphocytes) 28.8 20.0-40.0 [facility] StationUluaxmbQRYXTWORKY1002-10-81 11:21:00 Test Item Value Reference Range Interpretation Comments WBC (test code = WBC) 8.8 3.7-10.4 [facility] StationEypqmtnNWFDEOCNAI4683-97-70 11:21:00 Test Item Value Reference Range Interpretation Comments RBC (test code = RBC) 5.19 4.20-5.40 [facility] StationEtjqxcoPKABFUVBLE9983-75-39 11:21:00 Test Item Value Reference Range Interpretation Comments Hgb (test code = Hgb) 14.4 12.0-16.0 [facility] StationCrhrhujVDKYHQWFTW6915-92-19 11:21:00 Test Item Value Reference Range Interpretation Comments Hct (test code = Hct) 43.1 36.0-48.0 [facility] StationAnqqlylZYUVJZVSJU2582-92-40 11:21:00 Test Item Value Reference Range Interpretation Comments MCV (test code = MCV) 83.1 80.0-98.0 [facility] StationVrvewpvDGHIIRTKJP6016-02-28 11:21:00 Test Item Value Reference Range Interpretation Comments MCH (test code = MCH) 27.8 pg 27.0-31.0 [facility] StationXtsboshHRJWVSYUDH9714-02-19 11:21:00 Test Item Value Reference Range Interpretation Comments RDW (test code = RDW) 13.1 11.5-14.5 [facility] StationXlidfxqKXYQJBSQZJ4327-42-13 11:21:00 Test Item Value Reference Range Interpretation Comments MCHC (test code = MCHC) 33.5 32.0-36.0 [facility] StationIaqlfmwDTTUDKIZHY6210-44-84 11:21:00 Test Item Value Reference Range Interpretation Comments Platelet (test code = Platelet) 201 133-450 [facility] StationOamczebURPQUSAJZT8729-60-78 11:21:00 Test Item Value Reference Range Interpretation Comments MPV (test code = MPV) 10.4 7.4-10.4 [facility]2015-01-06 11:21:00 Test Item Value Reference Range Interpretation Comments Albumin Lvl (test code = Albumin Lvl) 3.2 3.5-5.0 [facility]2015-01-06 11:21:00 Test Item Value Reference Range Interpretation Comments Total Protein (test code = Total 6.6 6.4-8.4 Protein) [facility]2015-01-06 11:21:00 Test Item Value Reference Range Interpretation Comments Bili Total (test code = Bili Total) 0.6 0.2-1.3 [facility]2015-01-06 11:21:00 Test Item Value Reference Range Interpretation Comments Alk Phos (test code = Alk Phos) 59 39-136 [facility]2015-01-06 11:21:00 Test Item Value Reference Range Interpretation Comments AST (test code = AST) 11 See_Comment [Auto mated message] The system which ge nerated this result transmit rohit reference range : <=37. The reference range was not used to interpr et this result as reji l/abnormal. [facility]2015-01-06 11:21:00 Test Item Value Reference Range Interpretation Comments ALT (test code = ALT) 17 See_Comment [Auto mated message] The system which ge nerated this result transmit rohit reference range : <=65. The reference range was not used to interpr et this result as reji l/abnormal. [facility]2015-01-06 11:21:00 Test Item Value Reference Range Interpretation Comments eGFR (test code = eGFR) 99 [facility]2015-01-06 11:21:00 Test Item Value Reference Range Interpretation Comments Glucose Lvl (test code = Glucose Lvl) 314 70-99 [facility]2015-01-06 11:21:00 Test Item Value Reference Range Interpretation Comments Potassium Lvl (test code = Potassium 3.4 3.5-5.1 Lvl) [facility]2015-01-06 11:21:00 Test Item Value Reference Range Interpretation Comments BUN (test code = BUN) 11 7-22 [facility]2015-01-06 11:21:00 Test Item Value Reference Range Interpretation Comments Creatinine Lvl (test code = Creatinine 0.8 0.5-1.4 Lvl) [facility]2015-01-06 11:21:00 Test Item Value Reference Range Interpretation Comments Sodium Lvl (test code = Sodium Lvl) 134 135-145 [facility]2015-01-06 11:21:00 Test Item Value Reference Range Interpretation Comments Chloride Lvl (test code = Chloride Lvl) 94 95-109 [facility]2015-01-06 11:21:00 Test Item Value Reference Range Interpretation Comments Calcium Lvl (test code = Calcium Lvl) 9.1 8.5-10.5 [facility]2015-01-06 11:21:00 Test Item Value Reference Range Interpretation Comments CO2 (test code = CO2) 24 24-32 [place] 917535-01-06 11:21:00 Test Item Value Reference Range Interpretation Comments A/G Ratio (test code = A/G Ratio) 0.9 0.7-1.6 [facility]2015-01-06 11:21:00 Test Item Value Reference Range Interpretation Comments Globulin (test code = Globulin) 3.4 2.0-4.0 [facility]2015-01-06 11:21:00 Test Item Value Reference Range Interpretation Comments B/C Ratio (test code = B/C Ratio) 14 6-25 [facility]2015-01-06 11:21:00 Test Item Value Reference Range Interpretation Comments AGAP (test code = AGAP) 19.4 10.0-20.0 [facility]2015-01-06 11:21:00 Test Item Value Reference Range Interpretation Comments Lipase Lvl (test code = Lipase Lvl) 81 73-393 [facility] StationOitmlrqCCQSQKDFJG2635-02-76 11:21:00 Test Item Value Reference Range Interpretation Comments Large Plt (test code = Large Plt) Slight [facility] StationUzditfjCMTWHFSCFH6589-34-90 11:21:00 Test Item Value Reference Range Interpretation Comments Basophils # (test code 0.0 See_Comment [Aut omated message] The = Basophils #) system which generated this result tra nsmitted reference range : <=0.2. The reference r leo was not used to int erpret this result as normal/abnormal . [facility] StationLufccxiVHMLGJBZDA2873-27-45 11:21:00 Test Item Value Reference Range Interpretation Comments Anisocyte (test code = 1+ *ABN*(06/26/14 5:21 Anisocyte) AM) [facility] StationTqxifecSGBJWMASHA0714-26-93 11:21:00 Test Item Value Reference Range Interpretation Comments Monocytes # (test code 0.6 See_Comment [Aut omated message] The = Monocytes #) system which generated this result tra nsmitted reference range : <=0.8. The reference r leo was not used to int erpret this result as normal/abnormal . [facility] StationNffbbwuPAGYPNYSSG9380-53-79 11:21:00 Test Item Value Reference Range Interpretation Comments Eosinophils # (test code 0.1 See_Comment [A utomated message] The = Eosinophils #) system whic h generated this result tra nsmitted reference range : <=0.5. The reference r leo was not used to int erpret this result as normal/abnormal . [facility] StationLvsuzfjUQVPEQOEGX8612-63-97 11:21:00 Test Item Value Reference Range Interpretation Comments Lymphocytes # (test code = Lymphocytes 2.5 1.0-5.5 #) [facility] StationHqxznguDZPEWCWWMO3504-91-48 11:21:00 Test Item Value Reference Range Interpretation Comments Segs (test code = Segs) 63.3 45.0-75.0 [facility] StationDodygatXYPRCXGHIX4433-33-85 11:21:00 Test Item Value Reference Range Interpretation Comments Segs-Bands # (test code = Segs-Bands #) 5.6 1.5-8.1 [facility] StationIyswcfsPSUSXWOXVK8331-66-78 11:21:00 Test Item Value Reference Range Interpretation Comments Basophils (test code = 0.0 See_Comment [Aut omated message] The Basophils) system which ge nerated this result tra nsmitted reference range : <=1.0. The reference r leo was not used to int erpret this result as normal/abnormal . [facility] StationAhncxosHORGZBQQXS7388-42-18 11:21:00 Test Item Value Reference Range Interpretation Comments Eosinophils (test code = 0.9 See_Comment [A utomated message] The Eosinophils) system which ge nerated this result tra nsmitted reference range : <=4.0. The reference r leo was not used to int erpret this result as normal/abnormal . [facility] StationDpenskbTJVGSDHKKT9664-33-88 11:21:00 Test Item Value Reference Range Interpretation Comments Monocytes (test code = Monocytes) 7.0 2.0-12.0 [facility] StationYlkpmozMBNCRLPMGE3716-53-81 11:21:00 Test Item Value Reference Range Interpretation Comments Lymphocytes (test code = Lymphocytes) 28.8 20.0-40.0 [facility] StationRvzyenkWSQOMNEFOE3115-88-75 11:21:00 Test Item Value Reference Range Interpretation Comments WBC (test code = WBC) 8.8 3.7-10.4 [facility] StationLyolegdYUSTHOSTLF9038-71-56 11:21:00 Test Item Value Reference Range Interpretation Comments RBC (test code = RBC) 5.19 4.20-5.40 [facility] StationVvtegelVPYEPHFPCA9201-06-11 11:21:00 Test Item Value Reference Range Interpretation Comments Hgb (test code = Hgb) 14.4 12.0-16.0 [facility] StationItptzrcRHEDDHMSMJ9200-01-93 11:21:00 Test Item Value Reference Range Interpretation Comments Hct (test code = Hct) 43.1 36.0-48.0 [facility] StationOzshinxVJHJINHEXA5289-93-97 11:21:00 Test Item Value Reference Range Interpretation Comments MCV (test code = MCV) 83.1 80.0-98.0 [facility] StationGyviiyvOZQGXALTOV7902-63-50 11:21:00 Test Item Value Reference Range Interpretation Comments MCH (test code = MCH) 27.8 pg 27.0-31.0 [facility] StationCzqducoMCQXTFDDZP1187-56-21 11:21:00 Test Item Value Reference Range Interpretation Comments RDW (test code = RDW) 13.1 11.5-14.5 [facility] StationMyeiyxbKXSZCDRGMJ0362-71-90 11:21:00 Test Item Value Reference Range Interpretation Comments MCHC (test code = MCHC) 33.5 32.0-36.0 [facility] StationNgisegmBPUDZVESQH4667-91-21 11:21:00 Test Item Value Reference Range Interpretation Comments Platelet (test code = Platelet) 201 133-450 [facility] StationIrrgwowFFBKIUCMNC5653-44-84 11:21:00 Test Item Value Reference Range Interpretation Comments MPV (test code = MPV) 10.4 7.4-10.4 [facility]2015-01-06 11:21:00 Test Item Value Reference Range Interpretation Comments Albumin Lvl (test code = Albumin Lvl) 3.2 3.5-5.0 [facility]2015-01-06 11:21:00 Test Item Value Reference Range Interpretation Comments Total Protein (test code = Total 6.6 6.4-8.4 Protein) [facility]2015-01-06 11:21:00 Test Item Value Reference Range Interpretation Comments Bili Total (test code = Bili Total) 0.6 0.2-1.3 [facility]2015-01-06 11:21:00 Test Item Value Reference Range Interpretation Comments Alk Phos (test code = Alk Phos) 59 39-136 [facility]2015-01-06 11:21:00 Test Item Value Reference Range Interpretation Comments AST (test code = AST) 11 See_Comment [Auto mated message] The system which ge nerated this result transmit rohit reference range : <=37. The reference range was not used to interpr et this result as reji l/abnormal. [facility]2015-01-06 11:21:00 Test Item Value Reference Range Interpretation Comments ALT (test code = ALT) 17 See_Comment [Auto mated message] The system which ge nerated this result transmit rohit reference range : <=65. The reference range was not used to interpr et this result as reji l/abnormal. [facility]2015-01-06 11:21:00 Test Item Value Reference Range Interpretation Comments eGFR (test code = eGFR) 99 [facility]2015-01-06 11:21:00 Test Item Value Reference Range Interpretation Comments Glucose Lvl (test code = Glucose Lvl) 314 70-99 [facility]2015-01-06 11:21:00 Test Item Value Reference Range Interpretation Comments Potassium Lvl (test code = Potassium 3.4 3.5-5.1 Lvl) [facility]2015-01-06 11:21:00 Test Item Value Reference Range Interpretation Comments BUN (test code = BUN) 11 7-22 [facility]2015-01-06 11:21:00 Test Item Value Reference Range Interpretation Comments Creatinine Lvl (test code = Creatinine 0.8 0.5-1.4 Lvl) [facility]2015-01-06 11:21:00 Test Item Value Reference Range Interpretation Comments Sodium Lvl (test code = Sodium Lvl) 134 135-145 [facility]2015-01-06 11:21:00 Test Item Value Reference Range Interpretation Comments Chloride Lvl (test code = Chloride Lvl) 94 95-109 [facility]2015-01-06 11:21:00 Test Item Value Reference Range Interpretation Comments Calcium Lvl (test code = Calcium Lvl) 9.1 8.5-10.5 [facility]2015-01-06 11:21:00 Test Item Value Reference Range Interpretation Comments CO2 (test code = CO2) 24 24-32 [facility]2015-01-06 11:21:00 Test Item Value Reference Range Interpretation Comments A/G Ratio (test code = A/G Ratio) 0.9 0.7-1.6 [facility]2015-01-06 11:21:00 Test Item Value Reference Range Interpretation Comments Globulin (test code = Globulin) 3.4 2.0-4.0 [facility]2015-01-06 11:21:00 Test Item Value Reference Range Interpretation Comments B/C Ratio (test code = B/C Ratio) 14 6-25 [facility]2015-01-06 11:21:00 Test Item Value Reference Range Interpretation Comments AGAP (test code = AGAP) 19.4 10.0-20.0 [facility]2015-01-06 11:21:00 Test Item Value Reference Range Interpretation Comments Lipase Lvl (test code = Lipase Lvl) 81 73-393 [facility] StationNflnsieESRVJGDRWM8866-75-60 11:21:00 Test Item Value Reference Range Interpretation Comments Large Plt (test code = Large Plt) Slight [facility] StationBuavremVGUVSUZFWU9875-31-24 11:21:00 Test Item Value Reference Range Interpretation Comments Basophils # (test code 0.0 See_Comment [Aut omated message] The = Basophils #) system which generated this result tra nsmitted reference range : <=0.2. The reference r leo was not used to int erpret this result as normal/abnormal . [facility] StationCvmeebiHTXBUDOWVN6136-24-84 11:21:00 Test Item Value Reference Range Interpretation Comments Anisocyte (test code = 1+ *ABN*(06/26/14 5:21 Anisocyte) AM) [facility] StationWsfuntdSAQSMOPTNO1217-56-51 11:21:00 Test Item Value Reference Range Interpretation Comments Monocytes # (test code 0.6 See_Comment [Aut omated message] The = Monocytes #) system which generated this result tra nsmitted reference range : <=0.8. The reference r leo was not used to int erpret this result as normal/abnormal . [facility] StationCaoqbitDDMEMOYONY1166-61-50 11:21:00 Test Item Value Reference Range Interpretation Comments Eosinophils # (test code 0.1 See_Comment [A utomated message] The = Eosinophils #) system whic h generated this result tra nsmitted reference range : <=0.5. The reference r leo was not used to int erpret this result as normal/abnormal . [facility] StationCtocttcGGRDGNWLHF7118-31-39 11:21:00 Test Item Value Reference Range Interpretation Comments Lymphocytes # (test code = Lymphocytes 2.5 1.0-5.5 #) [facility] StationYvnpkchGVPIDBKXIX2635-77-62 11:21:00 Test Item Value Reference Range Interpretation Comments Segs (test code = Segs) 63.3 45.0-75.0 [facility] StationGxdrddxIJSNUVXKOJ2327-93-78 11:21:00 Test Item Value Reference Range Interpretation Comments Segs-Bands # (test code = Segs-Bands #) 5.6 1.5-8.1 [facility] StationHbiqkzzTUATNWSZOZ0371-43-40 11:21:00 Test Item Value Reference Range Interpretation Comments Basophils (test code = 0.0 See_Comment [Aut omated message] The Basophils) system which ge nerated this result tra nsmitted reference range : <=1.0. The reference r leo was not used to int erpret this result as normal/abnormal . [facility] StationOhclhrkUTNPNDSSHX7442-54-42 11:21:00 Test Item Value Reference Range Interpretation Comments Eosinophils (test code = 0.9 See_Comment [A utomated message] The Eosinophils) system which ge nerated this result tra nsmitted reference range : <=4.0. The reference r leo was not used to int erpret this result as normal/abnormal . [facility] StationBvnroumSDNPGUAZKM9282-29-18 11:21:00 Test Item Value Reference Range Interpretation Comments Monocytes (test code = Monocytes) 7.0 2.0-12.0 [facility] StationJziscqhNXZBDVAOZD3724-41-61 11:21:00 Test Item Value Reference Range Interpretation Comments Lymphocytes (test code = Lymphocytes) 28.8 20.0-40.0 [facility] StationNxaonaoRAVGMXOUJO2779-95-76 11:21:00 Test Item Value Reference Range Interpretation Comments WBC (test code = WBC) 8.8 3.7-10.4 [facility] StationBtrehfxFBGKCFKKLS6923-29-49 11:21:00 Test Item Value Reference Range Interpretation Comments RBC (test code = RBC) 5.19 4.20-5.40 [facility] StationZcuhfupYQWOYGEQTF4669-95-99 11:21:00 Test Item Value Reference Range Interpretation Comments Hgb (test code = Hgb) 14.4 12.0-16.0 [facility] StationWllidrySERAGJEXMA2284-76-35 11:21:00 Test Item Value Reference Range Interpretation Comments Hct (test code = Hct) 43.1 36.0-48.0 [facility] StationBhomdubPQVHYILZXY4826-05-57 11:21:00 Test Item Value Reference Range Interpretation Comments MCV (test code = MCV) 83.1 80.0-98.0 [facility] StationSqjdjtvHTYKXSEAPI1605-71-87 11:21:00 Test Item Value Reference Range Interpretation Comments MCH (test code = MCH) 27.8 pg 27.0-31.0 [facility] StationIwfpercFJPDKFIKST7118-34-10 11:21:00 Test Item Value Reference Range Interpretation Comments RDW (test code = RDW) 13.1 11.5-14.5 [facility] StationUzmdndtSGZIDBWYVH2872-19-57 11:21:00 Test Item Value Reference Range Interpretation Comments MCHC (test code = MCHC) 33.5 32.0-36.0 [facility] StationFdhglzrSPACTQQLDM2613-13-20 11:21:00 Test Item Value Reference Range Interpretation Comments Platelet (test code = Platelet) 201 133-450 [facility] StationPytsujqLFRZYEJUQY3331-80-99 11:21:00 Test Item Value Reference Range Interpretation Comments MPV (test code = MPV) 10.4 7.4-10.4 [facility] AreaNshlhdtDMVOMVSSOI1268-07-76 04:48:55 Test Item Value Reference Range Interpretation Comments UA Talco Yeast (test code = UA Occasional /HPF A Talco Yeast) [facility] AreaJvtgtbbNCQZTKHRNR0902-88-59 04:48:55 Test Item Value Reference Range Interpretation Comments UA Mucus (test code = UA Mucus) Few /LPF N [facility] AreaKbgfcqeJVVKORVGXL1411-53-54 04:48:55 Test Item Value Reference Range Interpretation Comments UA Sq Epi (test code = UA Sq Moderate /LPF A Epi) [facility] AreaGyvbfdhSRDCTRYWXV6177-81-31 04:48:55 Test Item Value Reference Range Interpretation Comments Micro? (test code = Performed (04/14/2013 N Micro?) 23:48:55) [facility] AreaYpyxixuCJBAHJHFPT0760-77-85 04:48:55 Test Item Value Reference Range Interpretation Comments UA WBC (test code = UA WBC) 0-2 /HPF N [facility] AreaIemlajhCPRCSLMCXV1530-42-22 04:48:55 Test Item Value Reference Range Interpretation Comments UA Bacteria (test code = UA Occasional /HPF N Bacteria) [facility] AreaEachlyxQOADCSRMLQ9894-77-41 04:48:55 Test Item Value Reference Range Interpretation Comments UA Glucose (test code = UA Glucose) 500 mg/dL A [facility] AreaGwfxbnaPDMFELFRHQ0388-00-38 04:48:55 Test Item Value Reference Range Interpretation Comments UA Bili (test code = Negative *NA*(04/14/2013 UA Bili) 23:48:55) [facility] AreaTsjnpxyZVXIEPZBTK4202-13-39 04:48:55 Test Item Value Reference Range Interpretation Comments UA Ketones (test code = Trace A UA Ketones) *ABN*(04/14/2013 23:48:55) [facility] AreaHhlxqjgSZQYSBEVFV6335-06-85 04:48:55 Test Item Value Reference Range Interpretation Comments UA Blood (test code = Negative (04/14/2013 N UA Blood) 23:48:55) [facility] AreaNrejhceYAGSEBALNE4882-87-73 04:48:55 Test Item Value Reference Range Interpretation Comments UA Urobilinogen (test code = UA 0.2 0.1-1.0 N Urobilinogen) [facility] AreaIlvnebsWXORKCOMDS0171-91-17 04:48:55 Test Item Value Reference Range Interpretation Comments UA Nitrite (test code Negative (04/14/2013 N = UA Nitrite) 23:48:55) [facility] AreaPdeclwjQMQRBJFKPD4300-31-05 04:48:55 Test Item Value Reference Range Interpretation Comments UA Leuk Est (test Negative (04/14/2013 N code = UA Leuk Est) 23:48:55) [facility] AreaAsaiolqNJFQQACNTK4170-10-36 04:48:55 Test Item Value Reference Range Interpretation Comments UA Turbidity (test code = Clear (04/14/2013 N UA Turbidity) 23:48:55) [facility] AreaKygniicEHRMUMRGBT9052-77-91 04:48:55 Test Item Value Reference Range Interpretation Comments UA Color (test code = Yellow *NA*(04/14/2013 UA Color) 23:48:55) [facility] AreaKyllfvmZBPUSEUZYK2407-30-05 04:48:55 Test Item Value Reference Range Interpretation Comments UA pH (test code = UA pH) 7.0 1 5.0-8.0 N [facility] AreaKyftprzYKTZBONSLM0090-99-80 04:48:55 Test Item Value Reference Range Interpretation Comments UA Spec Grav (test code = UA Spec 1.025 1 N Grav) [facility] AreaWrosaodQIZULQSOGB4302-16-80 04:48:55 Test Item Value Reference Range Interpretation Comments UA Protein (test code = Trace A UA Protein) *ABN*(04/14/2013 23:48:55) [facility] AreaDpshgdnALWGLYQXQO8326-24-76 04:48:55 Test Item Value Reference Range Interpretation Comments UA Talco Yeast (test code = UA Occasional /HPF A Talco Yeast) [facility] AreaSdejjvwFFNGKRRGYH2771-81-99 04:48:55 Test Item Value Reference Range Interpretation Comments UA Mucus (test code = UA Mucus) Few /LPF N [facility] AreaXyfhiypHDXWKOKQPU1470-71-20 04:48:55 Test Item Value Reference Range Interpretation Comments UA Sq Epi (test code = UA Sq Moderate /LPF A Epi) [facility] AreaTimngmbYKOKBGDTUI2132-05-34 04:48:55 Test Item Value Reference Range Interpretation Comments Micro? (test code = Performed (04/14/2013 N Micro?) 23:48:55) [facility] AreaXmuyogqQPTINDXNDQ5968-57-73 04:48:55 Test Item Value Reference Range Interpretation Comments UA WBC (test code = UA WBC) 0-2 /HPF N [facility] AreaEagqhixGCWEUSICEO2875-86-00 04:48:55 Test Item Value Reference Range Interpretation Comments UA Bacteria (test code = UA Occasional /HPF N Bacteria) [facility] AreaZttiumqWUGEHLNWRK9680-71-21 04:48:55 Test Item Value Reference Range Interpretation Comments UA Glucose (test code = UA Glucose) 500 mg/dL A [facility] AreaGnrrthlAHURLKHSRO9403-36-04 04:48:55 Test Item Value Reference Range Interpretation Comments UA Bili (test code = Negative *NA*(04/14/2013 UA Bili) 23:48:55) [facility] AreaLaiuxuoIDZTJBMMED9347-21-93 04:48:55 Test Item Value Reference Range Interpretation Comments UA Ketones (test code = Trace A UA Ketones) *ABN*(04/14/2013 23:48:55) [facility] AreaOpehejrHRJFXPVHKF3633-12-14 04:48:55 Test Item Value Reference Range Interpretation Comments UA Blood (test code = Negative (04/14/2013 N UA Blood) 23:48:55) [facility] AreaEvhrwywPMPHAGNRWP0104-12-96 04:48:55 Test Item Value Reference Range Interpretation Comments UA Urobilinogen (test code = UA 0.2 0.1-1.0 N Urobilinogen) [facility] AreaKwtdoytIGMMQTFKVG4382-73-59 04:48:55 Test Item Value Reference Range Interpretation Comments UA Nitrite (test code Negative (04/14/2013 N = UA Nitrite) 23:48:55) [facility] AreaYvbdcujVNSDRTRIVW5271-71-44 04:48:55 Test Item Value Reference Range Interpretation Comments UA Leuk Est (test Negative (04/14/2013 N code = UA Leuk Est) 23:48:55) [facility] AreaEifwceeCGGRWTLZOK9305-89-05 04:48:55 Test Item Value Reference Range Interpretation Comments UA Turbidity (test code = Clear (04/14/2013 N UA Turbidity) 23:48:55) [facility] AreaZyoirggFHHDYPUFUI0552-88-37 04:48:55 Test Item Value Reference Range Interpretation Comments UA Color (test code = Yellow *NA*(04/14/2013 UA Color) 23:48:55) [facility] AreaKwpmksmPHJKFOFNKI1214-46-55 04:48:55 Test Item Value Reference Range Interpretation Comments UA pH (test code = UA pH) 7.0 1 5.0-8.0 N [facility] AreaEpkingsFCATCUBART7292-00-79 04:48:55 Test Item Value Reference Range Interpretation Comments UA Spec Grav (test code = UA Spec 1.025 1 N Grav) [facility] AreaXztcducYPEPPRZMDB2337-46-48 04:48:55 Test Item Value Reference Range Interpretation Comments UA Protein (test code = Trace A UA Protein) *ABN*(04/14/2013 23:48:55) [facility] AreaOijgiwcZKWEPPBUMR1229-38-48 04:48:55 Test Item Value Reference Range Interpretation Comments UA Talco Yeast (test code = UA Occasional /HPF A Talco Yeast) [facility] AreaDhdfsyjIUWOQLVODB4575-95-15 04:48:55 Test Item Value Reference Range Interpretation Comments UA Mucus (test code = UA Mucus) Few /[facility]F [facility]pfgnqnRZXVGRBPXO1504-64-66 04:48:55 Test Item Value Reference Range Interpretation Comments UA Sq Epi (test code = UA Sq Moderate /LPF A Epi) [facility] AreaUkdysaiXGXVDZJIAY3078-01-43 04:48:55 Test Item Value Reference Range Interpretation Comments Micro? (test code = Performed (04/14/2013 N Micro?) 23:48:55) [facility] AreaAhcylrtVHAKTXCHKR5001-04-58 04:48:55 Test Item Value Reference Range Interpretation Comments UA WBC (test code = UA WBC) 0-2 /HPF N [facility] AreaPyysynzMUFWDOWXKB4198-16-31 04:48:55 Test Item Value Reference Range Interpretation Comments UA Bacteria (test code = UA Occasional /HPF N Bacteria) [facility] AreaMvmhwhrSPAGCWVIHB0238-35-72 04:48:55 Test Item Value Reference Range Interpretation Comments UA Glucose (test code = UA Glucose) 500 mg/dL A [facility] AreaNwxjrqsGKTPWQPOZF4497-28-05 04:48:55 Test Item Value Reference Range Interpretation Comments UA Bili (test code = Negative *NA*(04/14/2013 UA Bili) 23:48:55) [facility] AreaZvatxghAGQKWZEFRF9080-06-66 04:48:55 Test Item Value Reference Range Interpretation Comments UA Ketones (test code = Trace A UA Ketones) *ABN*(04/14/2013 23:48:55) [facility] AreaBqionefDCBBCAVKGW5628-05-40 04:48:55 Test Item Value Reference Range Interpretation Comments UA Blood (test code = Negative (04/14/2013 N UA Blood) 23:48:55) [facility] AreaIdzrtkkUUSTJVPKOJ3339-96-75 04:48:55 Test Item Value Reference Range Interpretation Comments UA Urobilinogen (test code = UA 0.2 0.1-1.0 N Urobilinogen) [facility] AreaLenefbbZTSSDKXIIQ1521-33-28 04:48:55 Test Item Value Reference Range Interpretation Comments UA Nitrite (test code Negative (04/14/2013 N = UA Nitrite) 23:48:55) [facility] AreaZugmvweYVXQFUNGVT4015-06-46 04:48:55 Test Item Value Reference Range Interpretation Comments UA Leuk Est (test Negative (04/14/2013 N code = UA Leuk Est) 23:48:55) [facility] AreaEhevzejFYKTPQSJJK9225-94-10 04:48:55 Test Item Value Reference Range Interpretation Comments UA Turbidity (test code = Clear (04/14/2013 N UA Turbidity) 23:48:55) [facility] AreaIhvcmgfRZKWDJJGVF1530-28-21 04:48:55 Test Item Value Reference Range Interpretation Comments UA Color (test code = Yellow *NA*(04/14/2013 UA Color) 23:48:55) [facility] AreaRrrskgmPUXJLICLMH3373-34-85 04:48:55 Test Item Value Reference Range Interpretation Comments UA pH (test code = UA pH) 7.0 1 5.0-8.0 N [facility] AreaGlfdtozHOMIZAWBNA5994-79-89 04:48:55 Test Item Value Reference Range Interpretation Comments UA Spec Grav (test code = UA Spec 1.025 1 N Grav) [facility] AreaQrvueepVYLMOKIFXI7010-09-19 04:48:55 Test Item Value Reference Range Interpretation Comments UA Protein (test code = Trace A UA Protein) *ABN*(04/14/2013 23:48:55) [facility] AreaAnurwsbLJXBDJJGST9034-95-48 04:48:55 Test Item Value Reference Range Interpretation Comments UA Talco Yeast (test code = UA Occasional /HPF A Talco Yeast) [facility] AreaKyfafyrLKZACZOFXO9227-13-94 04:48:55 Test Item Value Reference Range Interpretation Comments UA Mucus (test code = UA Mucus) Few /LPF N [facility] AreaFypgdqqHZDWJAXWTW1913-84-66 04:48:55 Test Item Value Reference Range Interpretation Comments UA Sq Epi (test code = UA Sq Moderate /LPF A Epi) [facility] AreaMvjaezjLNCQFBKBRJ5126-47-09 04:48:55 Test Item Value Reference Range Interpretation Comments Micro? (test code = Performed (04/14/2013 N Micro?) 23:48:55) [facility] AreaIbtjngyFZUPIFXKXX0119-37-29 04:48:55 Test Item Value Reference Range Interpretation Comments UA WBC (test code = UA WBC) 0-2 /HPF N [facility] AreaSqnppiuSPDFLXSKVU0678-26-92 04:48:55 Test Item Value Reference Range Interpretation Comments UA Bacteria (test code = UA Occasional /HPF N Bacteria) [facility] AreaInbcpzdMDSMSFSOZE8936-18-10 04:48:55 Test Item Value Reference Range Interpretation Comments UA Glucose (test code = UA Glucose) 500 mg/dL A [facility] AreaTezrvxmIGWOQWHOMC1616-13-46 04:48:55 Test Item Value Reference Range Interpretation Comments UA Bili (test code = Negative *NA*(04/14/2013 UA Bili) 23:48:55) [facility] AreaUgfeahwTIPKSIRFHV8272-71-92 04:48:55 Test Item Value Reference Range Interpretation Comments UA Ketones (test code = Trace A UA Ketones) *ABN*(04/14/2013 23:48:55) [facility] AreaYyeuwrwNCIECKYZZA1229-63-86 04:48:55 Test Item Value Reference Range Interpretation Comments UA Blood (test code = Negative (04/14/2013 N UA Blood) 23:48:55) [facility] AreaVteaxnwUVJXZYFJDW7759-44-60 04:48:55 Test Item Value Reference Range Interpretation Comments UA Urobilinogen (test code = UA 0.2 0.1-1.0 N Urobilinogen) [facility] AreaGyvmdhcHPWUGJHHQN7042-66-61 04:48:55 Test Item Value Reference Range Interpretation Comments UA Nitrite (test code Negative (04/14/2013 N = UA Nitrite) 23:48:55) [facility] AreaMxrnxsuBILAOMQWXS8356-17-15 04:48:55 Test Item Value Reference Range Interpretation Comments UA Leuk Est (test Negative (04/14/2013 N code = UA Leuk Est) 23:48:55) [facility] AreaNhtfmavQMSPWAVGQC0555-38-43 04:48:55 Test Item Value Reference Range Interpretation Comments UA Turbidity (test code = Clear (04/14/2013 N UA Turbidity) 23:48:55) [facility] AreaHuoqnkbKOIATDPMFO9016-72-77 04:48:55 Test Item Value Reference Range Interpretation Comments UA Color (test code = Yellow *NA*(04/14/2013 UA Color) 23:48:55) [facility] AreaWhtqgwgDNHLSGZWAS6315-01-07 04:48:55 Test Item Value Reference Range Interpretation Comments UA pH (test code = UA pH) 7.0 1 5.0-8.0 N [facility] AreaDaptizeTAJNOVULMM4698-40-62 04:48:55 Test Item Value Reference Range Interpretation Comments UA Spec Grav (test code = UA Spec 1.025 1 N Grav) [facility] AreaEnaemkfAZMSMDCRFZ4398-33-15 04:48:55 Test Item Value Reference Range Interpretation Comments UA Protein (test code = Trace A UA Protein) *ABN*(04/14/2013 23:48:55) [facility] AreaLujdxutEWHQWTPBXB5684-34-79 04:48:55 Test Item Value Reference Range Interpretation Comments UA Talco Yeast (test code = UA Occasional /HPF A Talco Yeast) [facility] AreaFoiqmwmQFCWSHMHZT6518-97-44 04:48:55 Test Item Value Reference Range Interpretation Comments UA Mucus (test code = UA Mucus) Few /LPF N [facility] AreaFtnxbgpMERVFYPZGE8819-85-70 04:48:55 Test Item Value Reference Range Interpretation Comments UA Sq Epi (test code = UA Sq Moderate /LPF A Epi) [facility] AreaIordyhrRZXPHJDPAJ7230-44-74 04:48:55 Test Item Value Reference Range Interpretation Comments Micro? (test code = Performed (04/14/2013 N Micro?) 23:48:55) [facility] AreaIcqyzkvMBHZBUCBAN2840-98-76 04:48:55 Test Item Value Reference Range Interpretation Comments UA WBC (test code = UA WBC) 0-2 /HPF N [facility] AreaBsctyfyJZNKXNESEJ9752-53-38 04:48:55 Test Item Value Reference Range Interpretation Comments UA Bacteria (test code = UA Occasional /HPF N Bacteria) [facility] AreaAcwtuucRVGHGWOWIH0265-02-32 04:48:55 Test Item Value Reference Range Interpretation Comments UA Glucose (test code = UA Glucose) 500 mg/dL A [facility] AreaPpszhtvKKYOVBGHYD0609-19-92 04:48:55 Test Item Value Reference Range Interpretation Comments UA Bili (test code = Negative *NA*(04/14/2013 UA Bili) 23:48:55) [facility] AreaHhwuhbqQJRFCPMTIY6664-18-94 04:48:55 Test Item Value Reference Range Interpretation Comments UA Ketones (test code = Trace A UA Ketones) *ABN*(04/14/2013 23:48:55) [facility] AreaCnyteayIEIWFCMKYU2397-21-96 04:48:55 Test Item Value Reference Range Interpretation Comments UA Blood (test code = Negative (04/14/2013 N UA Blood) 23:48:55) [facility] AreaWmfxneqXLVYWOJQZQ1030-41-00 04:48:55 Test Item Value Reference Range Interpretation Comments UA Urobilinogen (test code = UA 0.2 0.1-1.0 N Urobilinogen) [facility] AreaGijpwpvLNOPDJDRUG9701-07-82 04:48:55 Test Item Value Reference Range Interpretation Comments UA Nitrite (test code Negative (04/14/2013 N = UA Nitrite) 23:48:55) [facility] AreaNfmtaxmHXLZNLZGVE0502-81-13 04:48:55 Test Item Value Reference Range Interpretation Comments UA Leuk Est (test Negative (04/14/2013 N code = UA Leuk Est) 23:48:55) [facility] AreaYkpvqceETVSITONCJ1073-11-17 04:48:55 Test Item Value Reference Range Interpretation Comments UA Turbidity (test code = Clear (04/14/2013 N UA Turbidity) 23:48:55) [facility] AreaXfwxjjsBMXMJNQTNN5240-65-87 04:48:55 Test Item Value Reference Range Interpretation Comments UA Color (test code = Yellow *NA*(04/14/2013 UA Color) 23:48:55) [facility] AreaNwtcsmzRUQJYJXSCS9156-86-92 04:48:55 Test Item Value Reference Range Interpretation Comments UA pH (test code = UA pH) 7.0 1 5.0-8.0 N [facility] AreaSphktacUXVLWMHNRH5769-01-31 04:48:55 Test Item Value Reference Range Interpretation Comments UA Spec Grav (test code = UA Spec 1.025 1 N Grav) [facility] AreaGyazjhkRXRSRWIJWH1746-85-41 04:48:55 Test Item Value Reference Range Interpretation Comments UA Protein (test code = Trace A UA Protein) *ABN*(04/14/2013 23:48:55) [facility]RenbqknZTTLGRYML0110-73-85 04:28:00 Test Item Value Reference Range Interpretation Comments S Preg (test code = S Negative *NA*(04/14/2013 Preg) 23:28:00) [facility] HospitalExvruvnSUWXYDVSC4301-25-40 04:28:00 Test Item Value Reference Range Interpretation Comments Lipase Lvl (test code = Lipase Lvl) 233 73-393 N [facility] HospitalKeylkmlJOFOLNMQL9895-97-46 04:28:00 Test Item Value Reference Range Interpretation Comments Globulin (test code = Globulin) 4.1 2.0-4.0 H [facility] HospitalKqjwggtMANICNKDN0947-01-36 04:28:00 Test Item Value Reference Range Interpretation Comments AGAP (test code = AGAP) 10.5 10.0-20.0 N [facility] HospitalWfsrkdwUIYXOZBRW5370-32-64 04:28:00 Test Item Value Reference Range Interpretation Comments B/C Ratio (test code = B/C Ratio) 6 6-25 N [facility] HospitalVrnnehjWYFEDPUDN5392-81-03 04:28:00 Test Item Value Reference Range Interpretation Comments A/G Ratio (test code = A/G Ratio) 0.7 0.7-1.6 N [facility] HospitalJtjtstxQAYFDFPYG9517-10-83 04:28:00 Test Item Value Reference Range Interpretation Comments eGFR (test code = eGFR) 130 [facility] HospitalFytzadpHABBZAVTP2936-35-54 04:28:00 Test Item Value Reference Range Interpretation Comments Albumin Lvl (test code = Albumin Lvl) 2.9 3.5-5.0 L [facility] HospitalUhxwsnqYGJFYHIOB6789-60-04 04:28:00 Test Item Value Reference Range Interpretation Comments ASPARTATE TRANSAMINASE 20 See_Comment N [Aut omated message] (test code = ASPARTATE The s ystem which TRANSAMINASE) generated this result transmitted ref erence range: <=37. Th e reference range was not used to interpr et this result as normal/abnormal . [facility] HospitalKietsvvIMLATMPSA4153-40-92 04:28:00 Test Item Value Reference Range Interpretation Comments Bili Total (test code = Bili Total) 0.5 0.2-1.3 N [facility] HospitalSwuicxtJBKSYCOAC1133-96-87 04:28:00 Test Item Value Reference Range Interpretation Comments Alk Phos (test code = Alk Phos) 89 39-136 N [facility] HospitalQrokuzfCZRSDDOVU9444-76-93 04:28:00 Test Item Value Reference Range Interpretation Comments ALANINE AMINOTRANSFERASE 11 See_Comment N [A utomated message] (test code = ALANINE The sys tem which AMINOTRANSFERASE) generated this result transmitted ref erence range: <=65. Th e reference range was not used to int erpret this result as normal/abnormal . [facility] HospitalAavcazaQFQLLIPCG5007-43-66 04:28:00 Test Item Value Reference Range Interpretation Comments Creatinine Lvl (test code = Creatinine 0.5 0.5-1.4 N Lvl) [facility] HospitalMqxuwcxJLUOCXWTC5576-82-45 04:28:00 Test Item Value Reference Range Interpretation Comments BUN (test code = BUN) 3 7-22 L [facility] HospitalEvrinoaENXRSCVSE9904-39-57 04:28:00 Test Item Value Reference Range Interpretation Comments Glucose Lvl (test code = Glucose Lvl) 255 70-99 H [facility] HospitalSchmnksYLPRTKJKF6257-18-75 04:28:00 Test Item Value Reference Range Interpretation Comments Total Protein (test code = Total 7.0 6.4-8.4 N Protein) [facility] HospitalYmpmljcMHGIKSSIO2350-95-89 04:28:00 Test Item Value Reference Range Interpretation Comments Calcium Lvl (test code = Calcium Lvl) 8.7 8.5-10.5 N [facility] HospitalNhqzoldZUWPBMGGI0983-16-59 04:28:00 Test Item Value Reference Range Interpretation Comments CO2 (test code = CO2) 29 24-32 N [facility] HospitalXrxnexaCDIYKIAPA1415-70-12 04:28:00 Test Item Value Reference Range Interpretation Comments Chloride Lvl (test code = Chloride Lvl) 104 95-109 N [facility] HospitalVlqcqmdKZWSYUSEB7855-97-64 04:28:00 Test Item Value Reference Range Interpretation Comments Potassium Lvl (test code = Potassium 3.5 3.5-5.1 N Lvl) [facility] HospitalPbbbkehAJJYHNQGQ5356-74-55 04:28:00 Test Item Value Reference Range Interpretation Comments Sodium Lvl (test code = Sodium Lvl) 140 135-145 N [facility] StationYnqdflrTYUGLBSWYW4171-32-27 04:28:00 Test Item Value Reference Range Interpretation Comments PROTIME (test code = PROTIME) 12.1 s 12.0-14.7 N [facility] StationCcsxllzDTFEJRQSIE8140-57-78 04:28:00 Test Item Value Reference Range Interpretation Comments aPTT (test code = aPTT) 39.0 s 22.9-35.8 H [facility] StationEdrtwhwLIJLOPMNOJ1103-51-63 04:28:00 Test Item Value Reference Range Interpretation Comments INR (test code = INR) 0.90 0.85-1.17 N [facility] StationEynjducKVASVBFYBZ2812-35-25 04:28:00 Test Item Value Reference Range Interpretation Comments MCH (test code = MCH) 29.4 pg 27.0-31.0 N [facility] StationRdgouqaDPVCQDMZWT5326-16-88 04:28:00 Test Item Value Reference Range Interpretation Comments MCV (test code = MCV) 86.1 81.0-99.0 N [facility] StationSjbnvczKWPYMLWUUD8569-33-97 04:28:00 Test Item Value Reference Range Interpretation Comments Hct (test code = Hct) 29.4 36.0-48.0 L [facility] StationZazokslBDZANRCTBC8968-71-58 04:28:00 Test Item Value Reference Range Interpretation Comments RDW (test code = RDW) 14.0 11.5-14.5 N [facility] StationLtiiaxtLQLKZCOYNI0217-79-41 04:28:00 Test Item Value Reference Range Interpretation Comments WBC X 10x3 (test code = WBC X 10x3) 6.2 3.7-10.4 N [facility] StationAftttxqBJVGBMUJZI9211-52-14 04:28:00 Test Item Value Reference Range Interpretation Comments Platelet (test code = Platelet) 178 133-450 N [facility] StationZrpyvrzZVMMIBUGPR7039-72-21 04:28:00 Test Item Value Reference Range Interpretation Comments MCHC (test code = MCHC) 34.1 32.0-36.0 N [facility] StationKhwiewrRJLZIXYVYX9663-59-67 04:28:00 Test Item Value Reference Range Interpretation Comments RBC X 10x6 (test code = RBC X 10x6) 3.41 4.20-5.40 L [facility] StationBmmcndiLKQCXUYNIH2422-25-69 04:28:00 Test Item Value Reference Range Interpretation Comments Hgb (test code = Hgb) 10.0 12.0-16.0 L [facility] StationWbxgtvrIHZNZJOQJD7201-58-55 04:28:00 Test Item Value Reference Range Interpretation Comments MPV (test code = MPV) 10.1 7.4-10.4 N [facility] StationEnujtpxEWRDQKHABK2096-57-91 04:28:00 Test Item Value Reference Range Interpretation Comments Segs-Bands # (test code = Segs-Bands #) 4.4 1.5-8.1 N [facility] StationRpfpcwsTUXZFCULQR3047-41-72 04:28:00 Test Item Value Reference Range Interpretation Comments Basophils (test code = 0.7 See_Comment N [Aut omated message] The Basophils) system which ge nerated this result tra nsmitted reference range : <=1.0. The reference r leo was not used to int erpret this result as normal/abnormal . [facility] StationOepaqcjEODSTQEGUY4889-45-32 04:28:00 Test Item Value Reference Range Interpretation Comments Segs (test code = Segs) 70.7 45.0-75.0 N [facility] StationSjhedznTCUVPOJWRS2438-92-04 04:28:00 Test Item Value Reference Range Interpretation Comments Monocytes # (test code 0.3 See_Comment N [Aut omated message] The = Monocytes #) system which generated this result tra nsmitted reference range : <=0.8. The reference r leo was not used to int erpret this result as normal/abnormal . [facility] StationZkbuoovIQUVBGMKYM6909-22-05 04:28:00 Test Item Value Reference Range Interpretation Comments Lymphocytes # (test code = Lymphocytes 1.2 1.0-5.5 N #) [facility] StationAloirmvGAJAHRXLYJ0112-17-73 04:28:00 Test Item Value Reference Range Interpretation Comments Monocytes (test code = Monocytes) 4.5 2.0-12.0 N [facility] StationXepzieuURTWBPCAGJ3950-31-95 04:28:00 Test Item Value Reference Range Interpretation Comments Eosinophils (test code = 4.1 See_Comment H [A utomated message] The Eosinophils) system which ge nerated this result tra nsmitted reference range : <=4.0. The reference r leo was not used to int erpret this result as normal/abnormal . [facility] StationRnkinsiLZXOPTSFSW6011-59-05 04:28:00 Test Item Value Reference Range Interpretation Comments Lymphocytes (test code = Lymphocytes) 20.0 20.0-40.0 N [facility] StationSecrvkhPAQERWUNQH3087-26-83 04:28:00 Test Item Value Reference Range Interpretation Comments Basophils # (test code 0.0 See_Comment N [Aut omated message] The = Basophils #) system which generated this result tra nsmitted reference range : <=0.2. The reference r leo was not used to int erpret this result as normal/abnormal . [facility] StationKkrgsjpJCNVFOWXON3384-55-45 04:28:00 Test Item Value Reference Range Interpretation Comments Eosinophils # (test code 0.3 See_Comment N [A utomated message] The = Eosinophils #) system whic h generated this result tra nsmitted reference range : <=0.5. The reference r leo was not used to int erpret this result as normal/abnormal . [facility] HospitalXamsibhBNFJFSPFB5949-13-94 04:28:00 Test Item Value Reference Range Interpretation Comments S Preg (test code = S Negative *NA*(04/14/2013 Preg) 23:28:00) [facility] HospitalOgfnuhrFAYIHCZBX6302-89-69 04:28:00 Test Item Value Reference Range Interpretation Comments Lipase Lvl (test code = Lipase Lvl) 233 73-393 N [facility] HospitalHphefgqRHXLIKJBG4067-97-20 04:28:00 Test Item Value Reference Range Interpretation Comments Globulin (test code = Globulin) 4.1 2.0-4.0 H [facility] HospitalVijkabrNDJSOMEZW2993-44-29 04:28:00 Test Item Value Reference Range Interpretation Comments AGAP (test code = AGAP) 10.5 10.0-20.0 N [facility] HospitalNwvythuFJXNDKUOS2325-43-62 04:28:00 Test Item Value Reference Range Interpretation Comments B/C Ratio (test code = B/C Ratio) 6 6-25 N [facility] HospitalLioushaCWWHUVTNN2914-56-96 04:28:00 Test Item Value Reference Range Interpretation Comments A/G Ratio (test code = A/G Ratio) 0.7 0.7-1.6 N [facility] HospitalNlhjzidAFJZUPMXX0134-90-81 04:28:00 Test Item Value Reference Range Interpretation Comments eGFR (test code = eGFR) 130 [facility] HospitalTliixvoPXMWIHRQA8836-65-82 04:28:00 Test Item Value Reference Range Interpretation Comments Albumin Lvl (test code = Albumin Lvl) 2.9 3.5-5.0 L [facility] HospitalWhtvqieEWOZSVPLO8103-18-37 04:28:00 Test Item Value Reference Range Interpretation Comments ASPARTATE TRANSAMINASE 20 See_Comment N [Aut omated message] (test code = ASPARTATE The s ystem which TRANSAMINASE) generated this result transmitted ref erence range: <=37. Th e reference range was not used to interpr et this result as normal/abnormal . [facility] HospitalMgwdmwcTQRESRFDA9551-59-98 04:28:00 Test Item Value Reference Range Interpretation Comments Bili Total (test code = Bili Total) 0.5 0.2-1.3 N [facility] HospitalXmustfpZYFYIKKNO1011-72-96 04:28:00 Test Item Value Reference Range Interpretation Comments Alk Phos (test code = Alk Phos) 89 39-136 N [facility] HospitalDnflnmgDPLFQAIPR9792-76-64 04:28:00 Test Item Value Reference Range Interpretation Comments ALANINE AMINOTRANSFERASE 11 See_Comment N [A utomated message] (test code = ALANINE The sys tem which AMINOTRANSFERASE) generated this result transmitted ref erence range: <=65. Th e reference range was not used to int erpret this result as normal/abnormal . [facility] HospitalAgsyebaNUNIHWEBW3341-32-55 04:28:00 Test Item Value Reference Range Interpretation Comments Creatinine Lvl (test code = Creatinine 0.5 0.5-1.4 N Lvl) [facility] HospitalBfsnxqiGIVUMBGPL1603-54-63 04:28:00 Test Item Value Reference Range Interpretation Comments BUN (test code = BUN) 3 7-22 L [facility] HospitalXjhiszlKYAWWFPTB5187-02-64 04:28:00 Test Item Value Reference Range Interpretation Comments Glucose Lvl (test code = Glucose Lvl) 255 70-99 H [facility] HospitalPnvmkekBAZZEYBGA5524-03-73 04:28:00 Test Item Value Reference Range Interpretation Comments Total Protein (test code = Total 7.0 6.4-8.4 N Protein) [facility] HospitalVsfqikcGDBBMWZXM0754-55-89 04:28:00 Test Item Value Reference Range Interpretation Comments Calcium Lvl (test code = Calcium Lvl) 8.7 8.5-10.5 N [facility] HospitalHijgsfrWSWAIEDUO7158-32-38 04:28:00 Test Item Value Reference Range Interpretation Comments CO2 (test code = CO2) 29 24-32 N [facility] HospitalXirneeqJBXIPNXCG0794-09-78 04:28:00 Test Item Value Reference Range Interpretation Comments Chloride Lvl (test code = Chloride Lvl) 104 95-109 N [facility] HospitalLnwlopjDUCFOEYIV4659-49-73 04:28:00 Test Item Value Reference Range Interpretation Comments Potassium Lvl (test code = Potassium 3.5 3.5-5.1 N Lvl) [facility] HospitalWkxtvizVDFEGTMZX6107-01-30 04:28:00 Test Item Value Reference Range Interpretation Comments Sodium Lvl (test code = Sodium Lvl) 140 135-145 N [facility]OmjfiwkJSEPDIYOJT8626-37-86 04:28:00 Test Item Value Reference Range Interpretation Comments PROTIME (test code = PROTIME) 12.1 s 12.0-14.7 N [facility] StationVjcgnjaZHWZUPBIJT8626-36-23 04:28:00 Test Item Value Reference Range Interpretation Comments aPTT (test code = aPTT) 39.0 s 22.9-35.8 H [facility] StationNaigwkcIWBEETGFON1552-53-16 04:28:00 Test Item Value Reference Range Interpretation Comments INR (test code = INR) 0.90 0.85-1.17 N [facility] StationUdhvamkRCBQGYDMHM7203-07-34 04:28:00 Test Item Value Reference Range Interpretation Comments MCH (test code = MCH) 29.4 pg 27.0-31.0 N [facility] StationZvrzgmbXCJNLKUWKU6347-80-95 04:28:00 Test Item Value Reference Range Interpretation Comments MCV (test code = MCV) 86.1 81.0-99.0 N [facility] StationRqcvyrdTLQYLQFNKL8861-95-55 04:28:00 Test Item Value Reference Range Interpretation Comments Hct (test code = Hct) 29.4 36.0-48.0 L [facility] StationLobrdewACCZROVZJJ7333-67-85 04:28:00 Test Item Value Reference Range Interpretation Comments RDW (test code = RDW) 14.0 11.5-14.5 N [facility] StationNfjtiudWQTFXHEMKF3016-35-90 04:28:00 Test Item Value Reference Range Interpretation Comments WBC X 10x3 (test code = WBC X 10x3) 6.2 3.7-10.4 N [facility] StationXhddpvoIIBOBPKMUH4909-78-59 04:28:00 Test Item Value Reference Range Interpretation Comments Platelet (test code = Platelet) 178 133-450 N [facility] StationQrtuechSYZBAHOSRW1336-44-45 04:28:00 Test Item Value Reference Range Interpretation Comments MCHC (test code = MCHC) 34.1 32.0-36.0 N [facility] StationJokbfzbOVFISQIYLS8246-49-29 04:28:00 Test Item Value Reference Range Interpretation Comments RBC X 10x6 (test code = RBC X 10x6) 3.41 4.20-5.40 L [facility] StationBiqfrsiCMBSJIXSKO5593-67-20 04:28:00 Test Item Value Reference Range Interpretation Comments Hgb (test code = Hgb) 10.0 12.0-16.0 L [facility] StationJhqxdigJXZMETXHYT2023-57-44 04:28:00 Test Item Value Reference Range Interpretation Comments MPV (test code = MPV) 10.1 7.4-10.4 N [facility] StationGrnxxecPJCCTHELAZ0805-98-80 04:28:00 Test Item Value Reference Range Interpretation Comments Segs-Bands # (test code = Segs-Bands #) 4.4 1.5-8.1 N [facility] StationSvnmlxlTNUMTEMIYT6212-90-63 04:28:00 Test Item Value Reference Range Interpretation Comments Basophils (test code = 0.7 See_Comment N [Aut omated message] The Basophils) system which ge nerated this result tra nsmitted reference range : <=1.0. The reference r leo was not used to int erpret this result as normal/abnormal . [facility] StationNfzpkrkNBBABJUFDX7314-48-20 04:28:00 Test Item Value Reference Range Interpretation Comments Segs (test code = Segs) 70.7 45.0-75.0 N [facility] StationQyiwwbyGQOQWTOKYF7360-30-33 04:28:00 Test Item Value Reference Range Interpretation Comments Monocytes # (test code 0.3 See_Comment N [Aut omated message] The = Monocytes #) system which generated this result tra nsmitted reference range : <=0.8. The reference r leo was not used to int erpret this result as normal/abnormal . [facility] StationYvkhofvHYHGTTRSXX8444-55-05 04:28:00 Test Item Value Reference Range Interpretation Comments Lymphocytes # (test code = Lymphocytes 1.2 1.0-5.5 N #) [facility] StationBkvbjnlMBCKSIKRXK2396-58-25 04:28:00 Test Item Value Reference Range Interpretation Comments Monocytes (test code = Monocytes) 4.5 2.0-12.0 N [facility] StationNoergjdSHDAVMOIDC3427-47-65 04:28:00 Test Item Value Reference Range Interpretation Comments Eosinophils (test code = 4.1 See_Comment H [A utomated message] The Eosinophils) system which ge nerated this result tra nsmitted reference range : <=4.0. The reference r leo was not used to int erpret this result as normal/abnormal . [facility] StationRmftqfrOJBVBNRBVY3882-73-46 04:28:00 Test Item Value Reference Range Interpretation Comments Lymphocytes (test code = Lymphocytes) 20.0 20.0-40.0 N [facility] StationDpnhwesMTDJSJDWKH2568-13-78 04:28:00 Test Item Value Reference Range Interpretation Comments Basophils # (test code 0.0 See_Comment N [Aut omated message] The = Basophils #) system which generated this result tra nsmitted reference range : <=0.2. The reference r leo was not used to int erpret this result as normal/abnormal . [facility] StationOljjeqtCYIJAPKQXV6339-68-98 04:28:00 Test Item Value Reference Range Interpretation Comments Eosinophils # (test code 0.3 See_Comment N [A utomated message] The = Eosinophils #) system whic h generated this result tra nsmitted reference range : <=0.5. The reference r leo was not used to int erpret this result as normal/abnormal . [facility]IervqvjYCVNRTNBB1450-28-72 04:28:00 Test Item Value Reference Range Interpretation Comments S Preg (test code = S Negative *NA*(04/14/2013 Preg) 23:28:00) [facility] HospitalOnsosusNFTGYWXZX9911-83-76 04:28:00 Test Item Value Reference Range Interpretation Comments Lipase Lvl (test code = Lipase Lvl) 233 73-393 N [facility]landLtdfokxNOVQIMOGR5441-53-21 04:28:00 Test Item Value Reference Range Interpretation Comments Globulin (test code = Globulin) 4.1 2.0-4.0 H [facility]landKdhbcvoUJNOXHAWM1980-11-48 04:28:00 Test Item Value Reference Range Interpretation Comments AGAP (test code = AGAP) 10.5 10.0-20.0 N [facility]landBevefsaZDJQNUZPC2955-02-62 04:28:00 Test Item Value Reference Range Interpretation Comments B/C Ratio (test code = B/C Ratio) 6 6-25 N [facility]landUdvjmvwWJMVSVYPL8765-68-93 04:28:00 Test Item Value Reference Range Interpretation Comments A/G Ratio (test code = A/G Ratio) 0.7 0.7-1.6 N [facility]landFtchcbvQSCTYJOQG8786-22-83 04:28:00 Test Item Value Reference Range Interpretation Comments eGFR (test code = eGFR) 130 [facility] HospitalNkmzxchCZOTXTESD9530-72-95 04:28:00 Test Item Value Reference Range Interpretation Comments Albumin Lvl (test code = Albumin Lvl) 2.9 3.5-5.0 L [facility]landBggenmpHADTMTNSA4200-73-81 04:28:00 Test Item Value Reference Range Interpretation Comments ASPARTATE TRANSAMINASE 20 See_Comment N [Aut omated message] (test code = ASPARTATE The s ystem which TRANSAMINASE) generated this result transmitted ref erence range: <=37. Th e reference range was not used to interpr et this result as normal/abnormal . [facility] HospitalKzywkadWDEUGXBBN7924-51-05 04:28:00 Test Item Value Reference Range Interpretation Comments Bili Total (test code = Bili Total) 0.5 0.2-1.3 N [facility] HospitalQxowwqdIKWZEWOFA6008-42-69 04:28:00 Test Item Value Reference Range Interpretation Comments Alk Phos (test code = Alk Phos) 89 39-136 N [facility] HospitalMbsxaitJWQIOULDU2945-48-89 04:28:00 Test Item Value Reference Range Interpretation Comments ALANINE AMINOTRANSFERASE 11 See_Comment N [A utomated message] (test code = ALANINE The sys tem which AMINOTRANSFERASE) generated this result transmitted ref erence range: <=65. Th e reference range was not used to int erpret this result as normal/abnormal . [facility] HospitalGnwmjoeOQNECOOKX4718-61-88 04:28:00 Test Item Value Reference Range Interpretation Comments Creatinine Lvl (test code = Creatinine 0.5 0.5-1.4 N Lvl) [facility] HospitalGdtlwloEQRLXUWBH2256-72-22 04:28:00 Test Item Value Reference Range Interpretation Comments BUN (test code = BUN) 3 7-22 L [facility] HospitalBcrkcodUPOUZZMHA3618-51-36 04:28:00 Test Item Value Reference Range Interpretation Comments Glucose Lvl (test code = Glucose Lvl) 255 70-99 H [facility] HospitalUxlmbuvZEPDVHGIS8918-10-07 04:28:00 Test Item Value Reference Range Interpretation Comments Total Protein (test code = Total 7.0 6.4-8.4 N Protein) [facility] HospitalUbaymwrSMCAQQKVI1534-48-79 04:28:00 Test Item Value Reference Range Interpretation Comments Calcium Lvl (test code = Calcium Lvl) 8.7 8.5-10.5 N [facility] HospitalSwtkaajTCMXYSJMO0865-31-81 04:28:00 Test Item Value Reference Range Interpretation Comments CO2 (test code = CO2) 29 24-32 N [facility] HospitalYyyiijkJGSPYRHYH9313-65-01 04:28:00 Test Item Value Reference Range Interpretation Comments Chloride Lvl (test code = Chloride Lvl) 104 95-109 N [facility] HospitalJctwxjpVDVPERCVZ5053-44-42 04:28:00 Test Item Value Reference Range Interpretation Comments Potassium Lvl (test code = Potassium 3.5 3.5-5.1 N Lvl) [facility] HospitalLeuybgvRMBUYFMNJ5896-92-63 04:28:00 Test Item Value Reference Range Interpretation Comments Sodium Lvl (test code = Sodium Lvl) 140 135-145 N [facility] StationEcpairnZVYQHZRTSI8501-86-52 04:28:00 Test Item Value Reference Range Interpretation Comments PROTIME (test code = PROTIME) 12.1 s 12.0-14.7 N [facility] StationYxqafqjQCPAZPTOBG2963-32-81 04:28:00 Test Item Value Reference Range Interpretation Comments aPTT (test code = aPTT) 39.0 s 22.9-35.8 H [facility] StationKbyarqhGRWDGDENIF5871-38-93 04:28:00 Test Item Value Reference Range Interpretation Comments INR (test code = INR) 0.90 0.85-1.17 N [facility] StationDmsvohfAKOOCCHEHR5167-85-50 04:28:00 Test Item Value Reference Range Interpretation Comments MCH (test code = MCH) 29.4 pg 27.0-31.0 N [facility] StationBwpoqooRDYPGYTTIJ1807-29-62 04:28:00 Test Item Value Reference Range Interpretation Comments MCV (test code = MCV) 86.1 81.0-99.0 N [facility] StationRehezifASINVQACZN0338-89-68 04:28:00 Test Item Value Reference Range Interpretation Comments Hct (test code = Hct) 29.4 36.0-48.0 L [facility] StationDghmkhmGQHNPFKTXP3145-05-73 04:28:00 Test Item Value Reference Range Interpretation Comments RDW (test code = RDW) 14.0 11.5-14.5 N [facility] StationPjpvasjDVKMPFAAPH6453-82-54 04:28:00 Test Item Value Reference Range Interpretation Comments WBC X 10x3 (test code = WBC X 10x3) 6.2 3.7-10.4 N [facility] StationObluppjOUOKSQDADO2888-52-98 04:28:00 Test Item Value Reference Range Interpretation Comments Platelet (test code = Platelet) 178 133-450 N [facility] StationPuuuqtsUIZCOKCJJH3460-70-23 04:28:00 Test Item Value Reference Range Interpretation Comments MCHC (test code = MCHC) 34.1 32.0-36.0 N [facility] StationLwpxkusMXVFFFDTAT6318-00-06 04:28:00 Test Item Value Reference Range Interpretation Comments RBC X 10x6 (test code = RBC X 10x6) 3.41 4.20-5.40 L [facility] StationVojsiaySILEMDMDYV6140-44-50 04:28:00 Test Item Value Reference Range Interpretation Comments Hgb (test code = Hgb) 10.0 12.0-16.0 L [facility] StationRjpdxiuOIYMGUUJNK1846-14-15 04:28:00 Test Item Value Reference Range Interpretation Comments MPV (test code = MPV) 10.1 7.4-10.4 N [facility] StationLtzboegZCENGUHUGK1082-09-39 04:28:00 Test Item Value Reference Range Interpretation Comments Segs-Bands # (test code = Segs-Bands #) 4.4 1.5-8.1 N [facility] StationOkvjjnbQMGBXVWAUI5120-60-50 04:28:00 Test Item Value Reference Range Interpretation Comments Basophils (test code = 0.7 See_Comment N [Aut omated message] The Basophils) system which ge nerated this result tra nsmitted reference range : <=1.0. The reference r leo was not used to int erpret this result as normal/abnormal . [facility] StationLgachsjAYKMPVHFQA7747-07-28 04:28:00 Test Item Value Reference Range Interpretation Comments Segs (test code = Segs) 70.7 45.0-75.0 N [facility] StationPuqvrbkPHIUDZVOVN6367-10-73 04:28:00 Test Item Value Reference Range Interpretation Comments Monocytes # (test code 0.3 See_Comment N [Aut omated message] The = Monocytes #) system which generated this result tra nsmitted reference range : <=0.8. The reference r leo was not used to int erpret this result as normal/abnormal . [facility] StationMbwthrwWHNICZAGUU7512-55-69 04:28:00 Test Item Value Reference Range Interpretation Comments Lymphocytes # (test code = Lymphocytes 1.2 1.0-5.5 N #) [facility] StationDppawnbIKKWQLXDSD8912-11-23 04:28:00 Test Item Value Reference Range Interpretation Comments Monocytes (test code = Monocytes) 4.5 2.0-12.0 N [facility] StationHzilehdCLLCHMMDTK2701-73-34 04:28:00 Test Item Value Reference Range Interpretation Comments Eosinophils (test code = 4.1 See_Comment H [A utomated message] The Eosinophils) system which ge nerated this result tra nsmitted reference range : <=4.0. The reference r leo was not used to int erpret this result as normal/abnormal . [facility] StationOtfhgqrDWCWXZPQIN3161-33-96 04:28:00 Test Item Value Reference Range Interpretation Comments Lymphocytes (test code = Lymphocytes) 20.0 20.0-40.0 N [facility] StationGqdyxewZDKZOHYWJZ9830-68-96 04:28:00 Test Item Value Reference Range Interpretation Comments Basophils # (test code 0.0 See_Comment N [Aut omated message] The = Basophils #) system which generated this result tra nsmitted reference range : <=0.2. The reference r leo was not used to int erpret this result as normal/abnormal . [facility] StationIybszmcXXHTDQYVAK9570-94-44 04:28:00 Test Item Value Reference Range Interpretation Comments Eosinophils # (test code 0.3 See_Comment N [A utomated message] The = Eosinophils #) system whic h generated this result tra nsmitted reference range : <=0.5. The reference r leo was not used to int erpret this result as normal/abnormal . [facility]GytijxwSZBKFBSYH5506-73-00 04:28:00 Test Item Value Reference Range Interpretation Comments S Preg (test code = S Negative *NA*(04/14/2013 Preg) 23:28:00) [facility] HospitalWirnwsdZHQATHFLE5359-59-99 04:28:00 Test Item Value Reference Range Interpretation Comments Lipase Lvl (test code = Lipase Lvl) 233 73-393 N [facility] HospitalWlflsklMJRNSXOCB4000-86-40 04:28:00 Test Item Value Reference Range Interpretation Comments Globulin (test code = Globulin) 4.1 2.0-4.0 H [facility] HospitalMobvrqkBOFVALQPV5113-92-72 04:28:00 Test Item Value Reference Range Interpretation Comments AGAP (test code = AGAP) 10.5 10.0-20.0 N [facility] HospitalEufbrbmNZUOEIVEM7899-45-01 04:28:00 Test Item Value Reference Range Interpretation Comments B/C Ratio (test code = B/C Ratio) 6 6-25 N [facility] HospitalTiowercVCLYTOMOR4645-54-45 04:28:00 Test Item Value Reference Range Interpretation Comments A/G Ratio (test code = A/G Ratio) 0.7 0.7-1.6 N [facility] HospitalOaayoafRGRFITEYF6818-76-40 04:28:00 Test Item Value Reference Range Interpretation Comments eGFR (test code = eGFR) 130 [facility] HospitalPjnesdnDGVDLVQKL2387-67-04 04:28:00 Test Item Value Reference Range Interpretation Comments Albumin Lvl (test code = Albumin Lvl) 2.9 3.5-5.0 L [facility] HospitalKxtalsnQKSXGKSHB3189-94-73 04:28:00 Test Item Value Reference Range Interpretation Comments ASPARTATE TRANSAMINASE 20 See_Comment N [Aut omated message] (test code = ASPARTATE The s ystem which TRANSAMINASE) generated this result transmitted ref erence range: <=37. Th e reference range was not used to interpr et this result as normal/abnormal . [facility] HospitalHfuivmaXZAZUFZNQ2242-14-08 04:28:00 Test Item Value Reference Range Interpretation Comments Bili Total (test code = Bili Total) 0.5 0.2-1.3 N [facility] HospitalVvsutfuJWFSCLJFS0691-54-15 04:28:00 Test Item Value Reference Range Interpretation Comments Alk Phos (test code = Alk Phos) 89 39-136 N [facility] HospitalSlvubidQQUASBXAW3692-70-31 04:28:00 Test Item Value Reference Range Interpretation Comments ALANINE AMINOTRANSFERASE 11 See_Comment N [A utomated message] (test code = ALANINE The sys tem which AMINOTRANSFERASE) generated this result transmitted ref erence range: <=65. Th e reference range was not used to int erpret this result as normal/abnormal . [facility] HospitalGgjvkxbMUFKITWKT0841-76-78 04:28:00 Test Item Value Reference Range Interpretation Comments Creatinine Lvl (test code = Creatinine 0.5 0.5-1.4 N Lvl) [facility] HospitalPebjunkLPWUOATDY2792-16-80 04:28:00 Test Item Value Reference Range Interpretation Comments BUN (test code = BUN) 3 7-22 L [facility] HospitalZdsbjxoUOYETZIOK1268-04-22 04:28:00 Test Item Value Reference Range Interpretation Comments Glucose Lvl (test code = Glucose Lvl) 255 70-99 H [facility] HospitalQqnfydcPWZACJQHU4252-89-39 04:28:00 Test Item Value Reference Range Interpretation Comments Total Protein (test code = Total 7.0 6.4-8.4 N Protein) [facility] HospitalYndhldgCOPJHZRPE5362-62-39 04:28:00 Test Item Value Reference Range Interpretation Comments Calcium Lvl (test code = Calcium Lvl) 8.7 8.5-10.5 N [facility] HospitalRssjjsxTBCEDMDIC4331-21-67 04:28:00 Test Item Value Reference Range Interpretation Comments CO2 (test code = CO2) 29 24-32 N [facility] HospitalZpvgxbdNXMPWLRWO3234-42-58 04:28:00 Test Item Value Reference Range Interpretation Comments Chloride Lvl (test code = Chloride Lvl) 104 95-109 N [facility] HospitalNujqvjzXCWIUBLRV5297-96-06 04:28:00 Test Item Value Reference Range Interpretation Comments Potassium Lvl (test code = Potassium 3.5 3.5-5.1 N Lvl) [facility] HospitalPkvubzgTEBRWBQRC3639-67-32 04:28:00 Test Item Value Reference Range Interpretation Comments Sodium Lvl (test code = Sodium Lvl) 140 135-145 N [facility] StationXphqhzwBXGCNCIOOO4708-62-22 04:28:00 Test Item Value Reference Range Interpretation Comments PROTIME (test code = PROTIME) 12.1 s 12.0-14.7 N [facility] StationXuuprfmBZKNUQJNTU2216-74-70 04:28:00 Test Item Value Reference Range Interpretation Comments aPTT (test code = aPTT) 39.0 s 22.9-35.8 H [facility] StationYgrwbbsRFMXDOTGFY2698-21-87 04:28:00 Test Item Value Reference Range Interpretation Comments INR (test code = INR) 0.90 0.85-1.17 N [facility] StationCpewdtlJZPJYSODOW9732-89-27 04:28:00 Test Item Value Reference Range Interpretation Comments MCH (test code = MCH) 29.4 pg 27.0-31.0 N [facility] StationOdsoxxdFJTOCZYNQO8107-54-50 04:28:00 Test Item Value Reference Range Interpretation Comments MCV (test code = MCV) 86.1 81.0-99.0 N [facility] StationEhasqslDFZSYDHFWV4432-28-62 04:28:00 Test Item Value Reference Range Interpretation Comments Hct (test code = Hct) 29.4 36.0-48.0 L [facility] StationLjsrghvKJPLLTDWHC8148-11-19 04:28:00 Test Item Value Reference Range Interpretation Comments RDW (test code = RDW) 14.0 11.5-14.5 N [facility] StationAdbjawlCDEMGPNIYV7952-87-47 04:28:00 Test Item Value Reference Range Interpretation Comments WBC X 10x3 (test code = WBC X 10x3) 6.2 3.7-10.4 N [facility] StationVtpyejwWUUYZANZTG4187-88-37 04:28:00 Test Item Value Reference Range Interpretation Comments Platelet (test code = Platelet) 178 133-450 N [facility] StationVepqspwEABAFNLYZA6854-64-89 04:28:00 Test Item Value Reference Range Interpretation Comments MCHC (test code = MCHC) 34.1 32.0-36.0 N [facility] StationRijoviuQJWSONHCYX9490-51-98 04:28:00 Test Item Value Reference Range Interpretation Comments RBC X 10x6 (test code = RBC X 10x6) 3.41 4.20-5.40 L [facility] StationSuxexsoTDYTJKRBMR4381-86-76 04:28:00 Test Item Value Reference Range Interpretation Comments Hgb (test code = Hgb) 10.0 12.0-16.0 L [facility] StationGicdydwHCVKAWCEVI5452-70-64 04:28:00 Test Item Value Reference Range Interpretation Comments MPV (test code = MPV) 10.1 7.4-10.4 N [facility] StationGvnnsweTGGTGDGSXU0786-54-42 04:28:00 Test Item Value Reference Range Interpretation Comments Segs-Bands # (test code = Segs-Bands #) 4.4 1.5-8.1 N [facility] StationJgxuetgTBMXUZPQDS3593-50-59 04:28:00 Test Item Value Reference Range Interpretation Comments Basophils (test code = 0.7 See_Comment N [Aut omated message] The Basophils) system which ge nerated this result tra nsmitted reference range : <=1.0. The reference r leo was not used to int erpret this result as normal/abnormal . [facility] StationGfxkazlSEHZRSARKX7298-52-56 04:28:00 Test Item Value Reference Range Interpretation Comments Segs (test code = Segs) 70.7 45.0-75.0 N [facility] StationJmfdwnzTFHVHQJOFI0348-15-30 04:28:00 Test Item Value Reference Range Interpretation Comments Monocytes # (test code 0.3 See_Comment N [Aut omated message] The = Monocytes #) system which generated this result tra nsmitted reference range : <=0.8. The reference r leo was not used to int erpret this result as normal/abnormal . [facility] StationPdtlwkoVIGQMANWBB2461-55-88 04:28:00 Test Item Value Reference Range Interpretation Comments Lymphocytes # (test code = Lymphocytes 1.2 1.0-5.5 N #) [facility] StationAorlkelDQXFBMQSJB5838-12-32 04:28:00 Test Item Value Reference Range Interpretation Comments Monocytes (test code = Monocytes) 4.5 2.0-12.0 N [facility] StationYshdyjyVJIQPTCFWT5974-74-17 04:28:00 Test Item Value Reference Range Interpretation Comments Eosinophils (test code = 4.1 See_Comment H [A utomated message] The Eosinophils) system which ge nerated this result tra nsmitted reference range : <=4.0. The reference r leo was not used to int erpret this result as normal/abnormal . [facility] StationMpfiqvbCMCKIVMZBK9312-26-85 04:28:00 Test Item Value Reference Range Interpretation Comments Lymphocytes (test code = Lymphocytes) 20.0 20.0-40.0 N [facility] StationIuujafyABBJMLUYOM6750-79-68 04:28:00 Test Item Value Reference Range Interpretation Comments Basophils # (test code 0.0 See_Comment N [Aut omated message] The = Basophils #) system which generated this result tra nsmitted reference range : <=0.2. The reference r leo was not used to int erpret this result as normal/abnormal . [facility] StationWgcrjggSYLCAWDXXX4014-61-86 04:28:00 Test Item Value Reference Range Interpretation Comments Eosinophils # (test code 0.3 See_Comment N [A utomated message] The = Eosinophils #) system whic h generated this result tra nsmitted reference range : <=0.5. The reference r leo was not used to int erpret this result as normal/abnormal . [facility] HospitalGnkjownYCVVOMNHY9616-02-53 04:28:00 Test Item Value Reference Range Interpretation Comments S Preg (test code = S Negative *NA*(04/14/2013 Preg) 23:28:00) [facility] HospitalMmrduiiHAIRHYZBD2818-23-91 04:28:00 Test Item Value Reference Range Interpretation Comments Lipase Lvl (test code = Lipase Lvl) 233 73-393 N [facility] HospitalUimsqayWGYWTSRXJ2971-68-07 04:28:00 Test Item Value Reference Range Interpretation Comments Globulin (test code = Globulin) 4.1 2.0-4.0 H [facility] HospitalBbzhimqUBOAMOAGS7150-24-46 04:28:00 Test Item Value Reference Range Interpretation Comments AGAP (test code = AGAP) 10.5 10.0-20.0 N [facility] HospitalLikfrwzFVPYFZERU6094-57-16 04:28:00 Test Item Value Reference Range Interpretation Comments B/C Ratio (test code = B/C Ratio) 6 6-25 N [facility] HospitalBmxwvzlAABXUMQGD3119-92-72 04:28:00 Test Item Value Reference Range Interpretation Comments A/G Ratio (test code = A/G Ratio) 0.7 0.7-1.6 N [facility] HospitalChwakxxEVEIHJAOE4383-75-31 04:28:00 Test Item Value Reference Range Interpretation Comments eGFR (test code = eGFR) 130 [facility] HospitalRcjpbnrDZQFJFLTH2897-39-31 04:28:00 Test Item Value Reference Range Interpretation Comments Albumin Lvl (test code = Albumin Lvl) 2.9 3.5-5.0 L [facility] HospitalXdhvswrOUXZPAQBM2090-10-63 04:28:00 Test Item Value Reference Range Interpretation Comments ASPARTATE TRANSAMINASE 20 See_Comment N [Aut omated message] (test code = ASPARTATE The s ystem which TRANSAMINASE) generated this result transmitted ref erence range: <=37. Th e reference range was not used to interpr et this result as normal/abnormal . [facility] HospitalTqhfbptCNHFLBEHX1936-48-95 04:28:00 Test Item Value Reference Range Interpretation Comments Bili Total (test code = Bili Total) 0.5 0.2-1.3 N [facility] HospitalDerhrhtYDQABYQYV6796-97-32 04:28:00 Test Item Value Reference Range Interpretation Comments Alk Phos (test code = Alk Phos) 89 39-136 N [facility] HospitalBdvwndnRVCJRXEDM1102-05-51 04:28:00 Test Item Value Reference Range Interpretation Comments ALANINE AMINOTRANSFERASE 11 See_Comment N [A utomated message] (test code = ALANINE The sys tem which AMINOTRANSFERASE) generated this result transmitted ref erence range: <=65. Th e reference range was not used to int erpret this result as normal/abnormal . [facility] HospitalNgixxodQRZUDRGTN8866-57-49 04:28:00 Test Item Value Reference Range Interpretation Comments Creatinine Lvl (test code = Creatinine 0.5 0.5-1.4 N Lvl) [facility] HospitalChiyhqqZJARALJWX5970-83-64 04:28:00 Test Item Value Reference Range Interpretation Comments BUN (test code = BUN) 3 7-22 L [facility] HospitalHgvdsanFTPQYLEXO5185-54-10 04:28:00 Test Item Value Reference Range Interpretation Comments Glucose Lvl (test code = Glucose Lvl) 255 70-99 H [facility] HospitalNzpcagsRFBYMYGNW5109-69-97 04:28:00 Test Item Value Reference Range Interpretation Comments Total Protein (test code = Total 7.0 6.4-8.4 N Protein) [facility] HospitalJaradfbPQVSWXKVN7781-93-82 04:28:00 Test Item Value Reference Range Interpretation Comments Calcium Lvl (test code = Calcium Lvl) 8.7 8.5-10.5 N [facility] HospitalPfuyfnnSRVEUOJHP2280-92-74 04:28:00 Test Item Value Reference Range Interpretation Comments CO2 (test code = CO2) 29 24-32 N [facility] HospitalMwzowrzBCBDWLXLI6075-48-43 04:28:00 Test Item Value Reference Range Interpretation Comments Chloride Lvl (test code = Chloride Lvl) 104 95-109 N [facility] HospitalYdmunhpAZSJYSMBD1903-20-07 04:28:00 Test Item Value Reference Range Interpretation Comments Potassium Lvl (test code = Potassium 3.5 3.5-5.1 N Lvl) [facility] HospitalCglllpaKTXVIPMQN3348-84-13 04:28:00 Test Item Value Reference Range Interpretation Comments Sodium Lvl (test code = Sodium Lvl) 140 135-145 N [facility] StationClczbwcLIQTOVPXQM7553-78-07 04:28:00 Test Item Value Reference Range Interpretation Comments PROTIME (test code = PROTIME) 12.1 s 12.0-14.7 N [facility] StationBmomkyhSBVRDWLBIW9446-20-21 04:28:00 Test Item Value Reference Range Interpretation Comments aPTT (test code = aPTT) 39.0 s 22.9-35.8 H [facility] StationIztypvaYKTAQRPZGX1159-49-15 04:28:00 Test Item Value Reference Range Interpretation Comments INR (test code = INR) 0.90 0.85-1.17 N [facility] StationSemsdfeSRFOWHCDXC1992-46-11 04:28:00 Test Item Value Reference Range Interpretation Comments MCH (test code = MCH) 29.4 pg 27.0-31.0 N [facility] StationDcfbgbhLNGLLHQOKB3506-53-94 04:28:00 Test Item Value Reference Range Interpretation Comments MCV (test code = MCV) 86.1 81.0-99.0 N [facility] StationFrmlbipUSQXBBCUWA6873-31-46 04:28:00 Test Item Value Reference Range Interpretation Comments Hct (test code = Hct) 29.4 36.0-48.0 L [facility] StationSegyjdnIGOESRAHLT4515-44-08 04:28:00 Test Item Value Reference Range Interpretation Comments RDW (test code = RDW) 14.0 11.5-14.5 N [facility] StationYbumjdpAZDJKEIPXY0757-58-22 04:28:00 Test Item Value Reference Range Interpretation Comments WBC X 10x3 (test code = WBC X 10x3) 6.2 3.7-10.4 N [facility] StationAfpjdmfTKZOGNFMMU4615-69-20 04:28:00 Test Item Value Reference Range Interpretation Comments Platelet (test code = Platelet) 178 133-450 N [facility] StationPcnpmavVJRGLERGCH3038-20-78 04:28:00 Test Item Value Reference Range Interpretation Comments MCHC (test code = MCHC) 34.1 32.0-36.0 N [facility] StationJfuztmuLJYMKRXMAN9573-08-66 04:28:00 Test Item Value Reference Range Interpretation Comments RBC X 10x6 (test code = RBC X 10x6) 3.41 4.20-5.40 L [facility] StationMeordukWPMDDUJGTK3155-24-29 04:28:00 Test Item Value Reference Range Interpretation Comments Hgb (test code = Hgb) 10.0 12.0-16.0 L [facility] StationTgekbqbJSBOXYIYQG8298-41-67 04:28:00 Test Item Value Reference Range Interpretation Comments MPV (test code = MPV) 10.1 7.4-10.4 N [facility] StationJcpjbodHBFPHOSFRK2907-15-08 04:28:00 Test Item Value Reference Range Interpretation Comments Segs-Bands # (test code = Segs-Bands #) 4.4 1.5-8.1 N [facility] StationIylanksJZMYENTTYM7367-42-52 04:28:00 Test Item Value Reference Range Interpretation Comments Basophils (test code = 0.7 See_Comment N [Aut omated message] The Basophils) system which ge nerated this result tra nsmitted reference range : <=1.0. The reference r leo was not used to int erpret this result as normal/abnormal . [facility] StationVkqkprdUJPECBSSKO0719-14-57 04:28:00 Test Item Value Reference Range Interpretation Comments Segs (test code = Segs) 70.7 45.0-75.0 N [facility] StationUvowtfmUWBLBJEFIK5110-58-49 04:28:00 Test Item Value Reference Range Interpretation Comments Monocytes # (test code 0.3 See_Comment N [Aut omated message] The = Monocytes #) system which generated this result tra nsmitted reference range : <=0.8. The reference r leo was not used to int erpret this result as normal/abnormal . [facility] StationQhylaoaRIECLKBUQR3629-25-23 04:28:00 Test Item Value Reference Range Interpretation Comments Lymphocytes # (test code = Lymphocytes 1.2 1.0-5.5 N #) [facility] StationVfoujrbCSXSIJVZVT6901-77-10 04:28:00 Test Item Value Reference Range Interpretation Comments Monocytes (test code = Monocytes) 4.5 2.0-12.0 N [facility] StationKuspsopJBERDNANAL8297-85-37 04:28:00 Test Item Value Reference Range Interpretation Comments Eosinophils (test code = 4.1 See_Comment H [A utomated message] The Eosinophils) system which ge nerated this result tra nsmitted reference range : <=4.0. The reference r leo was not used to int erpret this result as normal/abnormal . [facility] StationZthahmfGAQSYGRFPY9888-74-19 04:28:00 Test Item Value Reference Range Interpretation Comments Lymphocytes (test code = Lymphocytes) 20.0 20.0-40.0 N [facility] StationKizlivtZNPDXUIYPY9063-83-35 04:28:00 Test Item Value Reference Range Interpretation Comments Basophils # (test code 0.0 See_Comment N [Aut omated message] The = Basophils #) system which generated this result tra nsmitted reference range : <=0.2. The reference r leo was not used to int erpret this result as normal/abnormal . [facility] StationKprrrxbGGEZKFEVAJ5946-74-20 04:28:00 Test Item Value Reference Range Interpretation Comments Eosinophils # (test code 0.3 See_Comment N [A utomated message] The = Eosinophils #) system whic h generated this result tra nsmitted reference range : <=0.5. The reference r leo was not used to int erpret this result as normal/abnormal . [facility] GLUCOSE [id number] 01:12:00 Test Item Value Reference Range Interpretation Comments Gluc POC Lifscn (test code = Gluc POC 260 70-99 H Lifscn) [facility] GLUCOSE [id number] 01:12:00 Test Item Value Reference Range Interpretation Comments Comment1 (test code = Comment1) Notify RN/ [facility] GLUCOSE [id number] 01:12:00 Test Item Value Reference Range Interpretation Comments Gluc POC Lifscn (test code = Gluc POC 260 70-99 H Lifscn) [facility] GLUCOSE [id number] 01:12:00 Test Item Value Reference Range Interpretation Comments Comment1 (test code = Comment1) Notify TABATHA/ [facility] GLUCOSE [id number] 01:12:00 Test Item Value Reference Range Interpretation Comments Gluc POC Lifscn (test code = Gluc POC 260 70-99 H Lifscn) [facility] GLUCOSE [id number] 01:12:00 Test Item Value Reference Range Interpretation Comments Comment1 (test code = Comment1) Notify TABATHA/ [facility] GLUCOSE [id number] 01:12:00 Test Item Value Reference Range Interpretation Comments Gluc POC Lifscn (test code = Gluc POC 260 70-99 H Lifscn) [facility] GLUCOSE [id number] 01:12:00 Test Item Value Reference Range Interpretation Comments Comment1 (test code = Comment1) Notify RN/ [facility] GLUCOSE [id number] 01:12:00 Test Item Value Reference Range Interpretation Comments Gluc POC Lifscn (test code = Gluc POC 260 70-99 H Lifscn) [facility] GLUCOSE [id number] 01:12:00 Test Item Value Reference Range Interpretation Comments Comment1 (test code = Comment1) Not[facility] TABATHA/ [facility]KFPJX0362-26-20 23:40:00 Test Item Value Reference Range Interpretation Comments UA Protein (test code = Trace A UA Protein) *ABN*(03/14/2012 18:40:00) [facility]AkjjqubGZMUYOIWLI8502-14-21 23:40:00 Test Item Value Reference Range Interpretation Comments UA pH (test code = UA pH) 6.0 1 5.0-8.0 N [facility] AreaCyplyfvRVBORGVBKW5501-60-57 23:40:00 Test Item Value Reference Range Interpretation Comments UA Ketones (test code = >=80 mg/dL UA Ketones) *NA*(03/14/2012 18:40:00) [facility] AreaYvsbxdrEYEPYUFQDF9797-87-29 23:40:00 Test Item Value Reference Range Interpretation Comments UA Glucose (test code = >=1000 mg/dL A UA Glucose) *ABN*(03/14/2012 18:40:00) [facility] AreaZthmuaiREWFBYSXHD0208-00-08 23:40:00 Test Item Value Reference Range Interpretation Comments UA Blood (test code = Negative (03/14/2012 N UA Blood) 18:40:00) [facility] AreaKjfjiuuJYEAJEIVMG8639-59-02 23:40:00 Test Item Value Reference Range Interpretation Comments UA Nitrite (test code Negative (03/14/2012 N = UA Nitrite) 18:40:00) [facility] AreaMcvgvpxGZAYLTIAYG3090-76-98 23:40:00 Test Item Value Reference Range Interpretation Comments UA Urobilinogen (test code = UA 0.2 0.1-1.0 N Urobilinogen) [facility] AreaBijawxpYKWOYNMFIO1129-34-17 23:40:00 Test Item Value Reference Range Interpretation Comments UA Leuk Est (test Negative (03/14/2012 N code = UA Leuk Est) 18:40:00) [facility] AreaJwjpdxxIXJKJATYNJ6105-85-51 23:40:00 Test Item Value Reference Range Interpretation Comments UA Bili (test code = Negative *NA*(03/14/2012 UA Bili) 18:40:00) [facility] AreaEfohdmtEKKZWAZSSX9863-64-60 23:40:00 Test Item Value Reference Range Interpretation Comments UA Turbidity (test code = Clear (03/14/2012 N UA Turbidity) 18:40:00) [facility] AreaJhsjlnlIEBZFCCSKQ0756-20-73 23:40:00 Test Item Value Reference Range Interpretation Comments UA Color (test code = Yellow *NA*(03/14/2012 UA Color) 18:40:00) [facility] AreaZuajjhqTOPTCMVIHH5445-13-37 23:40:00 Test Item Value Reference Range Interpretation Comments UA Spec Grav (test >=1.030 A code = UA Spec Grav) *ABN*(03/14/2012 18:40:00) [facility] AreaDbxudatEMYMZOVGTS0325-20-94 23:40:00 Test Item Value Reference Range Interpretation Comments UA Sq Epi (test code Occasional /LPF N = UA Sq Epi) (03/14/2012 18:40:00) [facility] AreaHihvbutDYJDICHHNR2929-95-35 23:40:00 Test Item Value Reference Range Interpretation Comments UA WBC (test code = UA 3-5 /HPF (03/14/2012 N WBC) 18:40:00) [facility] AreaQvirjzjJSEMHOURQI5320-69-42 23:40:00 Test Item Value Reference Range Interpretation Comments UA Bacteria (test code Occasional /HPF N = UA Bacteria) (03/14/2012 18:40:00) [facility] AreaXlpohrcWPSVYTQOAV9371-77-82 23:40:00 Test Item Value Reference Range Interpretation Comments UA Protein (test code = Trace A UA Protein) *ABN*(03/14/2012 18:40:00) [facility] AreaHklxipcOWHBWSUYAT2587-84-75 23:40:00 Test Item Value Reference Range Interpretation Comments UA pH (test code = UA pH) 6.0 1 5.0-8.0 N [facility] AreaHjyuokkIRIRAABLAG3056-61-76 23:40:00 Test Item Value Reference Range Interpretation Comments UA Ketones (test code = >=80 mg/dL UA Ketones) *NA*(03/14/2012 18:40:00) [facility] AreaBtadcjfKZZBUUUSXR9833-93-87 23:40:00 Test Item Value Reference Range Interpretation Comments UA Glucose (test code = >=1000 mg/dL A UA Glucose) *ABN*(03/14/2012 18:40:00) [facility] AreaDenifckIQTXNPOMOP6768-32-04 23:40:00 Test Item Value Reference Range Interpretation Comments UA Blood (test code = Negative (03/14/2012 N UA Blood) 18:40:00) [facility] AreaYghljqoRCYULFAMKP5338-85-36 23:40:00 Test Item Value Reference Range Interpretation Comments UA Nitrite (test code Negative (03/14/2012 N = UA Nitrite) 18:40:00) [facility]ubPDZKKHYIWP4482-63-48 23:40:00 Test Item Value Reference Range Interpretation Comments UA Urobilinogen (test code = UA 0.2 0.1-1.0 N Urobilinogen) [facility] AreaUeqeicoZVQBPOLIMH9597-77-41 23:40:00 Test Item Value Reference Range Interpretation Comments UA Leuk Est (test Negative (03/14/2012 N code = UA Leuk Est) 18:40:00) [facility] AreaGdpxjguNERTCDNWOS4091-04-92 23:40:00 Test Item Value Reference Range Interpretation Comments UA Bili (test code = Negative *NA*(03/14/2012 UA Bili) 18:40:00) [facility] AreaBzimdnsFRCAECIXKP2947-23-22 23:40:00 Test Item Value Reference Range Interpretation Comments UA Turbidity (test code = Clear (03/14/2012 N UA Turbidity) 18:40:00) [facility] AreaOnenavtYWNFSZRENF4534-60-96 23:40:00 Test Item Value Reference Range Interpretation Comments UA Color (test code = Yellow *NA*(03/14/2012 UA Color) 18:40:00) [facility] AreaTajkdirULBMLUITRC0628-46-43 23:40:00 Test Item Value Reference Range Interpretation Comments UA Spec Grav (test >=1.030 A code = UA Spec Grav) *ABN*(03/14/2012 18:40:00) [facility] AreaNagnyaqLOQFNBGWCW4206-74-30 23:40:00 Test Item Value Reference Range Interpretation Comments UA Sq Epi (test code Occasional /LPF N = UA Sq Epi) (03/14/2012 18:40:00) [facility] HospitalAkmmjayGTEHBAIYGA5081-49-44 23:40:00 Test Item Value Reference Range Interpretation Comments UA WBC (test code = UA 3-5 /HPF (03/14/2012 N WBC) 18:40:00) [facility] HospitalJxsgklnOYCCNLOFZG3589-02-47 23:40:00 Test Item Value Reference Range Interpretation Comments UA Bacteria (test code Occasional /HPF N = UA Bacteria) (03/14/2012 18:40:00) [facility] HospitalGakaqkpIYHYNRLYAY8772-38-62 23:40:00 Test Item Value Reference Range Interpretation Comments UA Protein (test code = Trace A UA Protein) *ABN*(03/14/2012 18:40:00) [facility] AreaWcsymfgZGBLXWYVNC6180-34-57 23:40:00 Test Item Value Reference Range Interpretation Comments UA pH (test code = UA pH) 6.0 1 5.0-8.0 N [facility] AreaEfmlybkXBKCUSVKGV3762-18-83 23:40:00 Test Item Value Reference Range Interpretation Comments UA Ketones (test code = >=80 mg/dL UA Ketones) *NA*(03/14/2012 18:40:00) [facility] AreaQokzxpgQJGVPUBDIB9089-15-89 23:40:00 Test Item Value Reference Range Interpretation Comments UA Glucose (test code = >=1000 mg/dL A UA Glucose) *ABN*(03/14/2012 18:40:00) [facility] AreaFyzhfvgMGSZNKREXE5318-76-14 23:40:00 Test Item Value Reference Range Interpretation Comments UA Blood (test code = Negative (03/14/2012 N UA Blood) 18:40:00) [facility] AreaPhyudbgUMKQMWIALJ9580-94-37 23:40:00 Test Item Value Reference Range Interpretation Comments UA Nitrite (test code Negative (03/14/2012 N = UA Nitrite) 18:40:00) [facility] AreaVzkxnihPWXVVQNUSG3762-90-38 23:40:00 Test Item Value Reference Range Interpretation Comments UA Urobilinogen (test code = UA 0.2 0.1-1.0 N Urobilinogen) [facility] AreaSipaqlbLQUBELLJVO8786-44-63 23:40:00 Test Item Value Reference Range Interpretation Comments UA Leuk Est (test Negative (03/14/2012 N code = UA Leuk Est) 18:40:00) [facility] AreaTzkoqdnCLZEYTMGTD7083-28-72 23:40:00 Test Item Value Reference Range Interpretation Comments UA Bili (test code = Negative *NA*(03/14/2012 UA Bili) 18:40:00) [facility] AreaMndvnxoFDYWGNBDQO2777-37-33 23:40:00 Test Item Value Reference Range Interpretation Comments UA Turbidity (test code = Clear (03/14/2012 N UA Turbidity) 18:40:00) [facility] AreaVmcryugWWTQVOXFXN4235-43-90 23:40:00 Test Item Value Reference Range Interpretation Comments UA Color (test code = Yellow *NA*(03/14/2012 UA Color) 18:40:00) [facility] HospitalXkwinxyJBLDKERCAA1075-67-03 23:40:00 Test Item Value Reference Range Interpretation Comments UA Spec Grav (test >=1.030 A code = UA Spec Grav) *ABN*(03/14/2012 18:40:00) [facility] AreaTlunoofYZEJPBDGCJ5011-14-50 23:40:00 Test Item Value Reference Range Interpretation Comments UA Sq Epi (test code Occasional /LPF N = UA Sq Epi) (03/14/2012 18:40:00) [facility] AreaYtbbrtkWRRDRZILOC5790-33-37 23:40:00 Test Item Value Reference Range Interpretation Comments UA WBC (test code = UA 3-5 /HPF (03/14/2012 N WBC) 18:40:00) [facility] AreaVmthlmsEZCYBGKWDD7989-91-59 23:40:00 Test Item Value Reference Range Interpretation Comments UA Bacteria (test code Occasional /HPF N = UA Bacteria) (03/14/2012 18:40:00) [facility] AreaKgmzvejFXORRNEVTQ1071-04-79 23:40:00 Test Item Value Reference Range Interpretation Comments UA Protein (test code = Trace A UA Protein) *ABN*(03/14/2012 18:40:00) [facility] AreaCosuzxtBUNAOWNJLR2694-89-15 23:40:00 Test Item Value Reference Range Interpretation Comments UA pH (test code = UA pH) 6.0 1 5.0-8.0 N [facility] AreaJmtpfqoHPFXYUFMIE5720-05-93 23:40:00 Test Item Value Reference Range Interpretation Comments UA Ketones (test code = >=80 mg/dL UA Ketones) *NA*(03/14/2012 18:40:00) [facility] AreaZrtapfmOURRQLTMBW2878-78-58 23:40:00 Test Item Value Reference Range Interpretation Comments UA Glucose (test code = >=1000 mg/dL A UA Glucose) *ABN*(03/14/2012 18:40:00) [facility] AreaWyuywuwZOGVAOFLRV3923-85-32 23:40:00 Test Item Value Reference Range Interpretation Comments UA Blood (test code = Negative (03/14/2012 N UA Blood) 18:40:00) [facility] AreaMmynxxaSZMZWQHGNO6826-46-52 23:40:00 Test Item Value Reference Range Interpretation Comments UA Nitrite (test code Negative (03/14/2012 N = UA Nitrite) 18:40:00) [facility] AreaUwsjlpxGPSCJTYABW6853-65-27 23:40:00 Test Item Value Reference Range Interpretation Comments UA Urobilinogen (test code = UA 0.2 0.1-1.0 N Urobilinogen) [facility] AreaMrerfpbSEPVRITFGJ6551-70-34 23:40:00 Test Item Value Reference Range Interpretation Comments UA Leuk Est (test Negative (03/14/2012 N code = UA Leuk Est) 18:40:00) [facility] HospitalRvwqkorJFRETJUGFQ0472-26-41 23:40:00 Test Item Value Reference Range Interpretation Comments UA Bili (test code = Negative *NA*(03/14/2012 UA Bili) 18:40:00) [facility] AreaNsibcyvFFFOYZNEGC7928-76-54 23:40:00 Test Item Value Reference Range Interpretation Comments UA Turbidity (test code = Clear (03/14/2012 N UA Turbidity) 18:40:00) [facility] AreaExjewyiOXCPHNJLSO5167-80-39 23:40:00 Test Item Value Reference Range Interpretation Comments UA Color (test code = Yellow *NA*(03/14/2012 UA Color) 18:40:00) [facility] AreaInfyuffCTFJCGIZIW1220-89-41 23:40:00 Test Item Value Reference Range Interpretation Comments UA Spec Grav (test >=1.030 A code = UA Spec Grav) *ABN*(03/14/2012 18:40:00) [facility] AreaEvdrttuPUWPADQINE9970-58-30 23:40:00 Test Item Value Reference Range Interpretation Comments UA Sq Epi (test code Occasional /LPF N = UA Sq Epi) (03/14/2012 18:40:00) [facility] AreaUddkwfuVTGVFNLOAV7762-64-67 23:40:00 Test Item Value Reference Range Interpretation Comments UA WBC (test code = UA 3-5 /HPF (03/14/2012 N WBC) 18:40:00) [facility] AreaLimdajvNKZBOGXXDF1312-85-11 23:40:00 Test Item Value Reference Range Interpretation Comments UA Bacteria (test code Occasional /HPF N = UA Bacteria) (03/14/2012 18:40:00) [facility] AreaDnxztuxGGDJDAVBVS6027-05-21 23:40:00 Test Item Value Reference Range Interpretation Comments UA Protein (test code = Trace A UA Protein) *ABN*(03/14/2012 18:40:00) [facility] AreaIqfgandNUHXIZECPS4369-91-51 23:40:00 Test Item Value Reference Range Interpretation Comments UA pH (test code = UA pH) 6.0 1 5.0-8.0 N [facility] AreaLqnxyxbFYSEHNDQII6597-34-73 23:40:00 Test Item Value Reference Range Interpretation Comments UA Ketones (test code = >=80 mg/dL UA Ketones) *NA*(03/14/2012 18:40:00) [facility] AreaObdflnlLAZLUYNIOB2761-31-63 23:40:00 Test Item Value Reference Range Interpretation Comments UA Glucose (test code = >=1000 mg/dL A UA Glucose) *ABN*(03/14/2012 18:40:00) [facility] AreaBqjbcbnJJHZLZASKG5956-19-45 23:40:00 Test Item Value Reference Range Interpretation Comments UA Blood (test code = Negative (03/14/2012 N UA Blood) 18:40:00) [facility] AreaXfjtzmlVPCQTAOBQL4100-92-33 23:40:00 Test Item Value Reference Range Interpretation Comments UA Nitrite (test code Negative (03/14/2012 N = UA Nitrite) 18:40:00) [facility] AreaIdvacbfTUMIYXIUDG3237-67-27 23:40:00 Test Item Value Reference Range Interpretation Comments UA Urobilinogen (test code = UA 0.2 0.1-1.0 N Urobilinogen) [facility] AreaLedcxbeULNWZGSHGN0661-31-38 23:40:00 Test Item Value Reference Range Interpretation Comments UA Leuk Est (test Negative (03/14/2012 N code = UA Leuk Est) 18:40:00) [facility] AreaZbacyhaNUZPHMAZJU3123-33-25 23:40:00 Test Item Value Reference Range Interpretation Comments UA Bili (test code = Negative *NA*(03/14/2012 UA Bili) 18:40:00) [facility] AreaDagidtwFMUELJJPBW8561-72-10 23:40:00 Test Item Value Reference Range Interpretation Comments UA Turbidity (test code = Clear (03/14/2012 N UA Turbidity) 18:40:00) [facility] AreaZincrazKQKUYMKJNR8084-76-45 23:40:00 Test Item Value Reference Range Interpretation Comments UA Color (test code = Yellow *NA*(03/14/2012 UA Color) 18:40:00) [facility] HospitalTmqocbnNNCSEXVXOD9402-88-74 23:40:00 Test Item Value Reference Range Interpretation Comments UA Spec Grav (test >=1.030 A code = UA Spec Grav) *ABN*(03/14/2012 18:40:00) [facility] AreaKehghlyVQFKQSTWPH0279-89-69 23:40:00 Test Item Value Reference Range Interpretation Comments UA Sq Epi (test code Occasional /LPF N = UA Sq Epi) (03/14/2012 18:40:00) [facility] HospitalUhfqvjjAUAVSNPWJT8155-56-88 23:40:00 Test Item Value Reference Range Interpretation Comments UA WBC (test code = UA 3-5 /HPF (03/14/2012 N WBC) 18:40:00) [facility] HospitalRzdxnmpUZRXSYFRSL3028-10-02 23:40:00 Test Item Value Reference Range Interpretation Comments UA Bacteria (test code Occasional /HPF N = UA Bacteria) (03/14/2012 18:40:00) [facility]TcvptexIRZMVGYAU5546-66-88 22:50:00 Test Item Value Reference Range Interpretation Comments S Preg (test code = S Negative *NA*(03/14/2012 Preg) 17:50:00) [facility] HospitalToyiyoyYRJDFASFI0243-42-71 22:50:00 Test Item Value Reference Range Interpretation Comments Lipase Lvl (test code = Lipase Lvl) 45 73-393 L [facility] HospitalLgrvfvrRMUTMRUWR8798-26-76 22:50:00 Test Item Value Reference Range Interpretation Comments A/G Ratio (test code = A/G Ratio) 1.2 0.7-1.6 N [facility] HospitalJnbejgoOIUPBJFKJ0780-55-01 22:50:00 Test Item Value Reference Range Interpretation Comments Globulin (test code = Globulin) 3.8 2.0-4.0 N [facility] HospitalBnzxxieVYVMXMJEE6813-95-53 22:50:00 Test Item Value Reference Range Interpretation Comments B/C Ratio (test code = B/C Ratio) 21 6-25 N [facility] HospitalLrvsoxlCPZDMRKXN1913-48-42 22:50:00 Test Item Value Reference Range Interpretation Comments AGAP (test code = AGAP) 16.8 10.0-20.0 N [facility] HospitalUzqmcszBFAFAAUWA2336-45-88 22:50:00 Test Item Value Reference Range Interpretation Comments Bili Total (test code = Bili Total) 1.1 0.2-1.3 N [facility] HospitalViitosyJCCWQINUX8935-94-26 22:50:00 Test Item Value Reference Range Interpretation Comments Total Protein (test code = Total 8.2 6.4-8.4 N Protein) [facility] HospitalUmkfpmsUHIWTPQXR1148-88-29 22:50:00 Test Item Value Reference Range Interpretation Comments Potassium Lvl (test code = Potassium 3.8 3.5-5.1 N Lvl) [facility] HospitalJylfhupZSXECNILZ2129-65-34 22:50:00 Test Item Value Reference Range Interpretation Comments Creatinine Lvl (test code = Creatinine 0.7 0.5-1.4 N Lvl) [facility] HospitalHrffjhwLJAEIMSTN1184-35-46 22:50:00 Test Item Value Reference Range Interpretation Comments Sodium Lvl (test code = Sodium Lvl) 139 135-145 N [facility] HospitalHukmqalMEQCQJSFZ7291-90-30 22:50:00 Test Item Value Reference Range Interpretation Comments Chloride Lvl (test code = Chloride Lvl) 99 95-109 N [facility] HospitalYhjvixmEDZAZTDSP4797-71-07 22:50:00 Test Item Value Reference Range Interpretation Comments CO2 (test code = CO2) 27 24-32 N [facility] HospitalLnskrenWNSVFOPUS7819-41-18 22:50:00 Test Item Value Reference Range Interpretation Comments Glucose Lvl (test code = Glucose Lvl) 301 70-99 H [facility] HospitalIgdvmhfEONFGSFPH3642-46-38 22:50:00 Test Item Value Reference Range Interpretation Comments BUN (test code = BUN) 15 7-22 N [facility] HospitalDyxprqjRMNVJGBIF1693-81-70 22:50:00 Test Item Value Reference Range Interpretation Comments ALT (test code = ALT) 24 See_Comment N [Auto mated message] The system which ge nerated this result transmit rohit reference range : <=65. The reference range was not used to interpr et this result as reji l/abnormal. [facility] HospitalKpwfcxmSPTJVIVKJ5277-66-85 22:50:00 Test Item Value Reference Range Interpretation Comments AST (test code = AST) 20 See_Comment N [Auto mated message] The system which ge nerated this result transmit rohit reference range : <=37. The reference range was not used to interpr et this result as reji l/abnormal. [facility] HospitalUsbfxwdKMKEPEHEM7240-69-10 22:50:00 Test Item Value Reference Range Interpretation Comments Alk Phos (test code = Alk Phos) 67 39-136 N [facility] HospitalPsdswebJNDKRAWTI6328-23-55 22:50:00 Test Item Value Reference Range Interpretation Comments Albumin Lvl (test code = Albumin Lvl) 4.4 3.5-5.0 N [facility] HospitalNyjnwyaTDCECZCMN9120-21-31 22:50:00 Test Item Value Reference Range Interpretation Comments Calcium Lvl (test code = Calcium Lvl) 9.9 8.5-10.5 N [facility]IqnzlofZXTCUDILLP1547-05-79 22:50:00 Test Item Value Reference Range Interpretation Comments MPV (test code = MPV) 11.8 7.4-10.4 H [facility] StationEqxkigaFCTXOCLSKF5149-83-42 22:50:00 Test Item Value Reference Range Interpretation Comments MCHC (test code = MCHC) 35.9 32.0-36.0 N [facility] StationVottulnRDYXIRYPJF8877-84-72 22:50:00 Test Item Value Reference Range Interpretation Comments MCH (test code = MCH) 31.2 pg 27.0-31.0 H [facility] StationBlosqhrNGBLWHTRLX7077-19-59 22:50:00 Test Item Value Reference Range Interpretation Comments Platelet (test code = Platelet) 189 133-450 N [facility] StationPsnjlgaXRHALYXCXW0897-83-47 22:50:00 Test Item Value Reference Range Interpretation Comments RDW (test code = RDW) 13.1 11.5-14.5 N [facility] StationOtxcznaZPSWZVAXAN4341-12-85 22:50:00 Test Item Value Reference Range Interpretation Comments Hct (test code = Hct) 40.7 36.0-48.0 N [facility] StationOdlrzgfPBFHYAIUXW5303-76-27 22:50:00 Test Item Value Reference Range Interpretation Comments Hgb (test code = Hgb) 14.6 12.0-16.0 N [facility] StationGzsztzzNIGXDCFEKG7145-44-54 22:50:00 Test Item Value Reference Range Interpretation Comments MCV (test code = MCV) 87.0 81.0-99.0 N [facility] StationPfbtltwXIZTAWVMNN1391-12-50 22:50:00 Test Item Value Reference Range Interpretation Comments WBC (test code = WBC) 11.7 3.7-10.4 H [facility] StationPbkbkyyDXJCJAOSYZ3510-97-94 22:50:00 Test Item Value Reference Range Interpretation Comments RBC (test code = RBC) 4.68 4.20-5.40 N [facility] StationDqswweqIKTCHSPQWT0906-26-06 22:50:00 Test Item Value Reference Range Interpretation Comments Basophils # (test code 0.0 See_Comment N [Aut omated message] The = Basophils #) system which generated this result tra nsmitted reference range : <=0.2. The reference r leo was not used to int erpret this result as normal/abnormal . [facility] StationDtxqynlMJTZEQMSED1378-16-36 22:50:00 Test Item Value Reference Range Interpretation Comments Basophils (test code = 0.2 See_Comment N [Aut omated message] The Basophils) system which ge nerated this result tra nsmitted reference range : <=1.0. The reference r leo was not used to int erpret this result as normal/abnormal . [facility] StationIturgluWKJGFRKVLS9993-20-38 22:50:00 Test Item Value Reference Range Interpretation Comments Eosinophils # (test code 0.0 See_Comment N [A utomated message] The = Eosinophils #) system whic h generated this result tra nsmitted reference range : <=0.5. The reference r leo was not used to int erpret this result as normal/abnormal . [facility] StationDtbfaqgVPFRDBNESL5502-70-94 22:50:00 Test Item Value Reference Range Interpretation Comments Monocytes # (test code 0.4 See_Comment N [Aut omated message] The = Monocytes #) system which generated this result tra nsmitted reference range : <=0.8. The reference r leo was not used to int erpret this result as normal/abnormal . [facility] StationHfcfrddVAKBBURPAB4561-13-61 22:50:00 Test Item Value Reference Range Interpretation Comments Segs-Bands # (test code = Segs-Bands #) 10.6 1.5-8.1 H [facility] [facility] StationVrsgbseXZOWPIQBMA6587-15-76 22:50:00 Test Item Value Reference Range Interpretation Comments Lymphocytes # (test code = Lymphocytes 0.7 1.0-5.5 L #) [facility] StationQqmaswaOWFPGQBNSM8223-47-35 22:50:00 Test Item Value Reference Range Interpretation Comments Monocytes (test code = Monocytes) 3.4 2.0-12.0 N [facility] StationCxzozvuGTPBPAPUCQ6027-06-65 22:50:00 Test Item Value Reference Range Interpretation Comments Plt Morph (test code = Normal (03/14/2012 N Plt Morph) 17:50:00) [facility] StationDmzpwndZDUQLXLKBF5429-71-50 22:50:00 Test Item Value Reference Range Interpretation Comments Lymphocytes (test code = Lymphocytes) 6.0 20.0-40.0 L [facility] StationSagydfeBSMNIIMQCX3178-76-22 22:50:00 Test Item Value Reference Range Interpretation Comments Eosinophils (test code = 0.0 See_Comment N [A utomated message] The Eosinophils) system which ge nerated this result tra nsmitted reference range : <=4.0. The reference r leo was not used to int erpret this result as normal/abnormal . [facility] StationAcddiygIUIPSGCZIC5959-58-39 22:50:00 Test Item Value Reference Range Interpretation Comments Segs (test code = Segs) 90.4 45.0-75.0 H [facility] StationIsktbdqMREPLADFHN0644-32-98 22:50:00 Test Item Value Reference Range Interpretation Comments RBC Morph (test code = Normal (03/14/2012 N RBC Morph) 17:50:00) [facility]ZqkbrlvGGMXXRZGW8622-91-33 22:50:00 Test Item Value Reference Range Interpretation Comments S Preg (test code = S Negative *NA*(03/14/2012 Preg) 17:50:00) [facility] HospitalEghgwskNUYXJSQQF4795-22-22 22:50:00 Test Item Value Reference Range Interpretation Comments Lipase Lvl (test code = Lipase Lvl) 45 73-393 L [facility] HospitalXhdfyiaTIYRZIFYY7863-82-59 22:50:00 Test Item Value Reference Range Interpretation Comments A/G Ratio (test code = A/G Ratio) 1.2 0.7-1.6 N [facility] HospitalAhcyjiyPQQWLRKZM5420-71-87 22:50:00 Test Item Value Reference Range Interpretation Comments Globulin (test code = Globulin) 3.8 2.0-4.0 N [facility] HospitalNuwgndmXOBGSZVST2216-21-25 22:50:00 Test Item Value Reference Range Interpretation Comments B/C Ratio (test code = B/C Ratio) 21 6-25 N [facility] HospitalZrcdzkiVSDCNVSWE0313-80-98 22:50:00 Test Item Value Reference Range Interpretation Comments AGAP (test code = AGAP) 16.8 10.0-20.0 N [facility] HospitalWwwltxxGNQGOMXRK6977-11-18 22:50:00 Test Item Value Reference Range Interpretation Comments Bili Total (test code = Bili Total) 1.1 0.2-1.3 N [facility] HospitalLtlanppVPNEZFVTY2581-48-95 22:50:00 Test Item Value Reference Range Interpretation Comments Total Protein (test code = Total 8.2 6.4-8.4 N Protein) [facility] HospitalZibdymeRAQMPVJAH6192-49-38 22:50:00 Test Item Value Reference Range Interpretation Comments Potassium Lvl (test code = Potassium 3.8 3.5-5.1 N Lvl) [facility] HospitalDrxlnpwYSFOKDVGB6219-52-88 22:50:00 Test Item Value Reference Range Interpretation Comments Creatinine Lvl (test code = Creatinine 0.7 0.5-1.4 N Lvl) [facility] HospitalAiabtkhTTIGQEMNZ4720-34-05 22:50:00 Test Item Value Reference Range Interpretation Comments Sodium Lvl (test code = Sodium Lvl) 139 135-145 N [facility] HospitalYlezplfMYBZGQREG3598-67-78 22:50:00 Test Item Value Reference Range Interpretation Comments Chloride Lvl (test code = Chloride Lvl) 99 95-109 N [facility] HospitalQeexfhqQKYRCEPUT1369-57-00 22:50:00 Test Item Value Reference Range Interpretation Comments CO2 (test code = CO2) 27 24-32 N [facility] HospitalEjozudmHRQYSVLDH4857-46-49 22:50:00 Test Item Value Reference Range Interpretation Comments Glucose Lvl (test code = Glucose Lvl) 301 70-99 H [facility] HospitalTeymajcOSCOMWZZA9554-09-66 22:50:00 Test Item Value Reference Range Interpretation Comments BUN (test code = BUN) 15 7-22 N [facility] HospitalEdmaphoWBZPOGFKF0531-80-97 22:50:00 Test Item Value Reference Range Interpretation Comments ALT (test code = ALT) 24 See_Comment N [Auto mated message] The system which ge nerated this result transmit rohit reference range : <=65. The reference range was not used to interpr et this result as reji l/abnormal. [facility] HospitalCptotqiFBLCTOMPT5397-83-85 22:50:00 Test Item Value Reference Range Interpretation Comments AST (test code = AST) 20 See_Comment N [Auto mated message] The system which ge nerated this result transmit rohit reference range : <=37. The reference range was not used to interpr et this result as reji l/abnormal. [facility] HospitalBupxciyIWZCUHCNV7947-39-45 22:50:00 Test Item Value Reference Range Interpretation Comments Alk Phos (test code = Alk Phos) 67 39-136 N [facility] HospitalZaugpmnVYFRLMSYG8420-61-76 22:50:00 Test Item Value Reference Range Interpretation Comments Albumin Lvl (test code = Albumin Lvl) 4.4 3.5-5.0 N [facility] HospitalZjnntecVWYGXLATP1359-13-21 22:50:00 Test Item Value Reference Range Interpretation Comments Calcium Lvl (test code = Calcium Lvl) 9.9 8.5-10.5 N [facility] StationJwxhdfhEJMFXROQXH6466-72-69 22:50:00 Test Item Value Reference Range Interpretation Comments MPV (test code = MPV) 11.8 7.4-10.4 H [facility] StationRwwgdkgVMBJCGCYYM0655-94-78 22:50:00 Test Item Value Reference Range Interpretation Comments MCHC (test code = MCHC) 35.9 32.0-36.0 N [facility] StationXtggaitZFBAGRLEHH8973-62-94 22:50:00 Test Item Value Reference Range Interpretation Comments MCH (test code = MCH) 31.2 pg 27.0-31.0 H [facility] StationOgmdwjyLMBFMQWIHY5930-28-11 22:50:00 Test Item Value Reference Range Interpretation Comments Platelet (test code = Platelet) 189 133-450 N [facility] StationKbukqcqZWGWOWWEYW6371-53-22 22:50:00 Test Item Value Reference Range Interpretation Comments RDW (test code = RDW) 13.1 11.5-14.5 N [facility] StationAebszilPGLQVYZAYX9127-88-88 22:50:00 Test Item Value Reference Range Interpretation Comments Hct (test code = Hct) 40.7 36.0-48.0 N [facility] StationAcfgbkeDNPDPAZLLT5994-39-83 22:50:00 Test Item Value Reference Range Interpretation Comments Hgb (test code = Hgb) 14.6 12.0-16.0 N [facility] StationDwadtqcKVKIDZTBWF7705-73-26 22:50:00 Test Item Value Reference Range Interpretation Comments MCV (test code = MCV) 87.0 81.0-99.0 N [facility] StationNgvjekpVLOCFXWBSH5890-11-88 22:50:00 Test Item Value Reference Range Interpretation Comments WBC (test code = WBC) 11.7 3.7-10.4 H [facility] StationZbodellYYQAGZTQDC9035-57-77 22:50:00 Test Item Value Reference Range Interpretation Comments RBC (test code = RBC) 4.68 4.20-5.40 N [facility] StationFuyoijzQERXQJCHWK3406-41-65 22:50:00 Test Item Value Reference Range Interpretation Comments Basophils # (test code 0.0 See_Comment N [Aut omated message] The = Basophils #) system which generated this result tra nsmitted reference range : <=0.2. The reference r leo was not used to int erpret this result as normal/abnormal . [facility] StationFbglkznVNOYNNBSZK0059-49-82 22:50:00 Test Item Value Reference Range Interpretation Comments Basophils (test code = 0.2 See_Comment N [Aut omated message] The Basophils) system which ge nerated this result tra nsmitted reference range : <=1.0. The reference r leo was not used to int erpret this result as normal/abnormal . [facility] StationCrtyvptFODDJCGWBC2513-16-60 22:50:00 Test Item Value Reference Range Interpretation Comments Eosinophils # (test code 0.0 See_Comment N [A utomated message] The = Eosinophils #) system whic h generated this result tra nsmitted reference range : <=0.5. The reference r leo was not used to int erpret this result as normal/abnormal . [facility] StationCfiflnyEGLELKWHTD6994-10-33 22:50:00 Test Item Value Reference Range Interpretation Comments Monocytes # (test code 0.4 See_Comment N [Aut omated message] The = Monocytes #) system which generated this result tra nsmitted reference range : <=0.8. The reference r leo was not used to int erpret this result as normal/abnormal . [facility] StationTcrqnrxFSQMOUOFTY0233-55-23 22:50:00 Test Item Value Reference Range Interpretation Comments Segs-Bands # (test code = Segs-Bands #) 10.6 1.5-8.1 H [facility] StationIbzhhhfEJWTAACPUU7680-65-59 22:50:00 Test Item Value Reference Range Interpretation Comments Lymphocytes # (test code = Lymphocytes 0.7 1.0-5.5 L #) [facility] StationPlpbmjxSIQFZBZEQD5179-15-58 22:50:00 Test Item Value Reference Range Interpretation Comments Monocytes (test code = Monocytes) 3.4 2.0-12.0 N [facility] StationLioonikUNXXSSBVHU0577-55-71 22:50:00 Test Item Value Reference Range Interpretation Comments Plt Morph (test code = Normal (03/14/2012 N Plt Morph) 17:50:00) [facility] StationAixoilmQHEGJOZGTZ0886-42-40 22:50:00 Test Item Value Reference Range Interpretation Comments Lymphocytes (test code = Lymphocytes) 6.0 20.0-40.0 L [facility] StationIioexozSRBZIFLEZZ1046-68-10 22:50:00 Test Item Value Reference Range Interpretation Comments Eosinophils (test code = 0.0 See_Comment N [A utomated message] The Eosinophils) system which ge nerated this result tra nsmitted reference range : <=4.0. The reference r leo was not used to int erpret this result as normal/abnormal . [facility] StationGyisobmOQPTZDAFMR9809-07-52 22:50:00 Test Item Value Reference Range Interpretation Comments Segs (test code = Segs) 90.4 45.0-75.0 H [facility] StationDykryubLANUZPVSVZ8096-60-64 22:50:00 Test Item Value Reference Range Interpretation Comments RBC Morph (test code = Normal (03/14/2012 N RBC Morph) 17:50:00) [facility] HospitalVramydaBQKDOVFFV9762-07-93 22:50:00 Test Item Value Reference Range Interpretation Comments S Preg (test code = S Negative *NA*(03/14/2012 Preg) 17:50:00) [facility] HospitalGndcruwWRHABEJGV5569-38-29 22:50:00 Test Item Value Reference Range Interpretation Comments Lipase Lvl (test code = Lipase Lvl) 45 73-393 L [facility] HospitalWthowcfXCFKDWAEO2571-75-79 22:50:00 Test Item Value Reference Range Interpretation Comments A/G Ratio (test code = A/G Ratio) 1.2 0.7-1.6 N [facility] HospitalGnpommyRDIDEDRSZ2938-64-91 22:50:00 Test Item Value Reference Range Interpretation Comments Globulin (test code = Globulin) 3.8 2.0-4.0 N [facility] HospitalFazvossMUWLTHUDS7310-72-32 22:50:00 Test Item Value Reference Range Interpretation Comments B/C Ratio (test code = B/C Ratio) 21 6-25 N [facility] HospitalVsjhcxfAHLKZTJAM8850-85-66 22:50:00 Test Item Value Reference Range Interpretation Comments AGAP (test code = AGAP) 16.8 10.0-20.0 N [facility] HospitalLbxykosNBCLIULFO5017-47-84 22:50:00 Test Item Value Reference Range Interpretation Comments Bili Total (test code = Bili Total) 1.1 0.2-1.3 N [facility] HospitalKpwwasrGLMJZKWSN1201-80-65 22:50:00 Test Item Value Reference Range Interpretation Comments Total Protein (test code = Total 8.2 6.4-8.4 N Protein) [facility] HospitalIxwonthXXTSDLVKC6948-70-86 22:50:00 Test Item Value Reference Range Interpretation Comments Potassium Lvl (test code = Potassium 3.8 3.5-5.1 N Lvl) [facility] HospitalBbmjzowYQRYPIHJQ5966-52-96 22:50:00 Test Item Value Reference Range Interpretation Comments Creatinine Lvl (test code = Creatinine 0.7 0.5-1.4 N Lvl) [facility] HospitalGrfnhneGWFMNNBNC6712-15-41 22:50:00 Test Item Value Reference Range Interpretation Comments Sodium Lvl (test code = Sodium Lvl) 139 135-145 N [facility] HospitalRgtvkbxRIFDRVABR2437-59-37 22:50:00 Test Item Value Reference Range Interpretation Comments Chloride Lvl (test code = Chloride Lvl) 99 95-109 N [facility] HospitalHwsoiuvOMFSIBHZM4384-97-90 22:50:00 Test Item Value Reference Range Interpretation Comments CO2 (test code = CO2) 27 24-32 N [facility] HospitalFehteofZFFUMGQIN5002-80-32 22:50:00 Test Item Value Reference Range Interpretation Comments Glucose Lvl (test code = Glucose Lvl) 301 70-99 H [facility] HospitalYxmciepBYQWDQRFJ6656-70-75 22:50:00 Test Item Value Reference Range Interpretation Comments BUN (test code = BUN) 15 7-22 N [facility] HospitalWeuwvzfECZUNQUIO4905-14-46 22:50:00 Test Item Value Reference Range Interpretation Comments ALT (test code = ALT) 24 See_Comment N [Auto mated message] The system which ge nerated this result transmit rohit reference range : <=65. The reference range was not used to interpr et this result as reji l/abnormal. [facility] HospitalMjgxuoaBBEDUOQLA0357-63-38 22:50:00 Test Item Value Reference Range Interpretation Comments AST (test code = AST) 20 See_Comment N [Auto mated message] The system which ge nerated this result transmit rohit reference range : <=37. The reference range was not used to interpr et this result as reji l/abnormal. [facility] HospitalYtdrfpgNINOWRNFQ4479-66-23 22:50:00 Test Item Value Reference Range Interpretation Comments Alk Phos (test code = Alk Phos) 67 39-136 N [facility] HospitalQagreqvPQNLRFRBT3325-41-27 22:50:00 Test Item Value Reference Range Interpretation Comments Albumin Lvl (test code = Albumin Lvl) 4.4 3.5-5.0 N [facility] HospitalXwbuixlSCCLNSDSN1353-36-15 22:50:00 Test Item Value Reference Range Interpretation Comments Calcium Lvl (test code = Calcium Lvl) 9.9 8.5-10.5 N [facility] StationRsportwTJBPWZEUCA0517-00-53 22:50:00 Test Item Value Reference Range Interpretation Comments MPV (test code = MPV) 11.8 7.4-10.4 H [facility] StationDeoxenxKVESEEEOTV1643-97-71 22:50:00 Test Item Value Reference Range Interpretation Comments MCHC (test code = MCHC) 35.9 32.0-36.0 N [facility] StationVarwaiqQAVXQYFGOH7205-56-41 22:50:00 Test Item Value Reference Range Interpretation Comments MCH (test code = MCH) 31.2 pg 27.0-31.0 H [facility] StationUddtmtsJMAPKSADFL0205-40-72 22:50:00 Test Item Value Reference Range Interpretation Comments Platelet (test code = Platelet) 189 133-450 N [facility] StationOqmlluxGYGPDYNGZP5529-74-67 22:50:00 Test Item Value Reference Range Interpretation Comments RDW (test code = RDW) 13.1 11.5-14.5 N [facility] StationAlsxddwHQEKOZBVCI9269-03-15 22:50:00 Test Item Value Reference Range Interpretation Comments Hct (test code = Hct) 40.7 36.0-48.0 N [facility] StationXqsqfeyYEAYNGNOCR2383-12-94 22:50:00 Test Item Value Reference Range Interpretation Comments Hgb (test code = Hgb) 14.6 12.0-16.0 N [facility] StationYktpuwzQLYBYZDBCZ4584-56-39 22:50:00 Test Item Value Reference Range Interpretation Comments MCV (test code = MCV) 87.0 81.0-99.0 N [facility] StationJrymumxYDRDPGYATA3005-05-42 22:50:00 Test Item Value Reference Range Interpretation Comments WBC (test code = WBC) 11.7 3.7-10.4 H [facility] StationArdfclxTJUQKJNQRO0439-93-67 22:50:00 Test Item Value Reference Range Interpretation Comments RBC (test code = RBC) 4.68 4.20-5.40 N [facility] StationLlyiiwaTNNOTWYAGI4462-88-35 22:50:00 Test Item Value Reference Range Interpretation Comments Basophils # (test code 0.0 See_Comment N [Aut omated message] The = Basophils #) system which generated this result tra nsmitted reference range : <=0.2. The reference r leo was not used to int erpret this result as normal/abnormal . [facility] StationHkrtemfBLTDNDRSRP8852-60-00 22:50:00 Test Item Value Reference Range Interpretation Comments Basophils (test code = 0.2 See_Comment N [Aut omated message] The Basophils) system which ge nerated this result tra nsmitted reference range : <=1.0. The reference r elo was not used to int erpret this result as normal/abnormal . [facility] StationThcebtmTRNVQSRGIK9353-87-13 22:50:00 Test Item Value Reference Range Interpretation Comments Eosinophils # (test code 0.0 See_Comment N [A utomated message] The = Eosinophils #) system whic h generated this result tra nsmitted reference range : <=0.5. The reference r leo was not used to int erpret this result as normal/abnormal . [facility] StationAzdnsymJJZZXWUNBJ1370-71-36 22:50:00 Test Item Value Reference Range Interpretation Comments Monocytes # (test code 0.4 See_Comment N [Aut omated message] The = Monocytes #) system which generated this result tra nsmitted reference range : <=0.8. The reference r leo was not used to int erpret this result as normal/abnormal . [facility] StationJgzdpneUAYDZAAPXE5247-25-75 22:50:00 Test Item Value Reference Range Interpretation Comments Segs-Bands # (test code = Segs-Bands #) 10.6 1.5-8.1 H [facility] StationCebxgfyDBTKKFHBOK8587-86-01 22:50:00 Test Item Value Reference Range Interpretation Comments Lymphocytes # (test code = Lymphocytes 0.7 1.0-5.5 L #) [facility] StationYfttiefGGLJTAURAS8242-63-58 22:50:00 Test Item Value Reference Range Interpretation Comments Monocytes (test code = Monocytes) 3.4 2.0-12.0 N [facility] StationOzjoqxgTGCRJYGSXF7019-72-66 22:50:00 Test Item Value Reference Range Interpretation Comments Plt Morph (test code = Normal (03/14/2012 N Plt Morph) 17:50:00) [facility] StationDspxebbHPLDUMUXEV5835-91-98 22:50:00 Test Item Value Reference Range Interpretation Comments Lymphocytes (test code = Lymphocytes) 6.0 20.0-40.0 L [facility] StationNjdqyxkFQOIVMCDTE0262-73-61 22:50:00 Test Item Value Reference Range Interpretation Comments Eosinophils (test code = 0.0 See_Comment N [A utomated message] The Eosinophils) system which ge nerated this result tra nsmitted reference range : <=4.0. The reference r leo was not used to int erpret this result as normal/abnormal . [facility] StationLhpgoqwFQZFOGWWQE8747-73-61 22:50:00 Test Item Value Reference Range Interpretation Comments Segs (test code = Segs) 90.4 45.0-75.0 H [facility] StationYwdvrpnPBEJETPSLY5399-02-83 22:50:00 Test Item Value Reference Range Interpretation Comments RBC Morph (test code = Normal (03/14/2012 N RBC Morph) 17:50:00) [facility] HospitalIvceivyHWMKJTGNJ8601-80-92 22:50:00 Test Item Value Reference Range Interpretation Comments S Preg (test code = S Negative *NA*(03/14/2012 Preg) 17:50:00) [facility] HospitalGztbjzrXXCLSEPQZ8358-84-33 22:50:00 Test Item Value Reference Range Interpretation Comments Lipase Lvl (test code = Lipase Lvl) 45 73-393 L [facility] HospitalRvwatruLKNBNXVVR5269-10-97 22:50:00 Test Item Value Reference Range Interpretation Comments A/G Ratio (test code = A/G Ratio) 1.2 0.7-1.6 N [facility] HospitalPbwajdpQBBHPJTUR0242-06-97 22:50:00 Test Item Value Reference Range Interpretation Comments Globulin (test code = Globulin) 3.8 2.0-4.0 N [facility] HospitalLxkyqufFUKADVQTD8309-94-51 22:50:00 Test Item Value Reference Range Interpretation Comments B/C Ratio (test code = B/C Ratio) 21 6-25 N [facility] HospitalFrqrmijMESZFBFSX0106-67-70 22:50:00 Test Item Value Reference Range Interpretation Comments AGAP (test code = AGAP) 16.8 10.0-20.0 N [facility] HospitalPtjcxurEYIFMZEYL7245-91-24 22:50:00 Test Item Value Reference Range Interpretation Comments Bili Total (test code = Bili Total) 1.1 0.2-1.3 N [facility] HospitalYzilqhqMBHIULMPZ4953-10-94 22:50:00 Test Item Value Reference Range Interpretation Comments Total Protein (test code = Total 8.2 6.4-8.4 N Protein) [facility] HospitalSykomcxOVLMYHOYU9710-39-98 22:50:00 Test Item Value Reference Range Interpretation Comments Potassium Lvl (test code = Potassium 3.8 3.5-5.1 N Lvl) [facility] HospitalKzqrypoMJGAHORLI9922-09-74 22:50:00 Test Item Value Reference Range Interpretation Comments Creatinine Lvl (test code = Creatinine 0.7 0.5-1.4 N Lvl) [facility] HospitalGxtepcwIANWEDBAT3498-77-58 22:50:00 Test Item Value Reference Range Interpretation Comments Sodium Lvl (test code = Sodium Lvl) 139 135-145 N [facility] HospitalRblqfplDGYMYUZUZ6026-37-35 22:50:00 Test Item Value Reference Range Interpretation Comments Chloride Lvl (test code = Chloride Lvl) 99 95-109 N [facility] HospitalKyojyisKCTVMNAKC8074-74-21 22:50:00 Test Item Value Reference Range Interpretation Comments CO2 (test code = CO2) 27 24-32 N [facility] HospitalGecuvaqCOKUAVOBB8349-61-64 22:50:00 Test Item Value Reference Range Interpretation Comments Glucose Lvl (test code = Glucose Lvl) 301 70-99 H [facility] HospitalHdycdptBVATVFSZB1438-74-57 22:50:00 Test Item Value Reference Range Interpretation Comments BUN (test code = BUN) 15 7-22 N [facility] HospitalGutqeaxZCDHUDRWZ4699-02-11 22:50:00 Test Item Value Reference Range Interpretation Comments ALT (test code = ALT) 24 See_Comment N [Auto mated message] The system which ge nerated this result transmit rohit reference range : <=65. The reference range was not used to interpr et this result as reji l/abnormal. [facility] HospitalCrrinjpKDUZBKKGR2802-74-26 22:50:00 Test Item Value Reference Range Interpretation Comments AST (test code = AST) 20 See_Comment N [Auto mated message] The system which ge nerated this result transmit rohit reference range : <=37. The reference range was not used to interpr et this result as reji l/abnormal. [facility] HospitalPauqyquPJCMGAHPT4915-37-80 22:50:00 Test Item Value Reference Range Interpretation Comments Alk Phos (test code = Alk Phos) 67 39-136 N [facility]AkoqrxaSJNQJHBON7417-94-40 22:50:00 Test Item Value Reference Range Interpretation Comments Albumin Lvl (test code = Albumin Lvl) 4.4 3.5-5.0 N [facility]landIgxbllbIEWZWCCZI9930-24-81 22:50:00 Test Item Value Reference Range Interpretation Comments Calcium Lvl (test code = Calcium Lvl) 9.9 8.5-10.5 N [facility] StationZcecaefINYRPAWRII8456-16-07 22:50:00 Test Item Value Reference Range Interpretation Comments MPV (test code = MPV) 11.8 7.4-10.4 H [facility] StationBjazionDIAWMFWLZZ0592-30-21 22:50:00 Test Item Value Reference Range Interpretation Comments MCHC (test code = MCHC) 35.9 32.0-36.0 N [facility]landDizswsxNPHPYZWTPM1732-42-30 22:50:00 Test Item Value Reference Range Interpretation Comments MCH (test code = MCH) 31.2 pg 27.0-31.0 H [facility]landGnixlnkMGBUQWUCAY4143-60-12 22:50:00 Test Item Value Reference Range Interpretation Comments Platelet (test code = Platelet) 189 133-450 N [facility] StationWhaccuvGXUNDZUJSR2930-02-48 22:50:00 Test Item Value Reference Range Interpretation Comments RDW (test code = RDW) 13.1 11.5-14.5 N [facility]QvbqfwiJXAQXHGDIN0324-66-17 22:50:00 Test Item Value Reference Range Interpretation Comments Hct (test code = Hct) 40.7 36.0-48.0 N [facility] StationClpsuftIBDNXOSTFP9295-42-56 22:50:00 Test Item Value Reference Range Interpretation Comments Hgb (test code = Hgb) 14.6 12.0-16.0 N [facility] StationZsgpgrfBRRMWSCEMK3256-89-59 22:50:00 Test Item Value Reference Range Interpretation Comments MCV (test code = MCV) 87.0 81.0-99.0 N [facility] StationHncyjvyFMDORPFQMI9289-64-38 22:50:00 Test Item Value Reference Range Interpretation Comments WBC (test code = WBC) 11.7 3.7-10.4 H [facility] StationWimghwnCBWAXLTMWK8977-08-47 22:50:00 Test Item Value Reference Range Interpretation Comments RBC (test code = RBC) 4.68 4.20-5.40 N [facility] StationLuesoymABZGJAXSID9183-74-80 22:50:00 Test Item Value Reference Range Interpretation Comments Basophils # (test code 0.0 See_Comment N [Aut omated message] The = Basophils #) system which generated this result tra nsmitted reference range : <=0.2. The reference r leo was not used to int erpret this result as normal/abnormal . [facility] StationJpiezkvIBZCOEJUKO5557-57-44 22:50:00 Test Item Value Reference Range Interpretation Comments Basophils (test code = 0.2 See_Comment N [Aut omated message] The Basophils) system which ge nerated this result tra nsmitted reference range : <=1.0. The reference r leo was not used to int erpret this result as normal/abnormal . [facility] StationCqseusxZXXKVYKFQD1964-53-50 22:50:00 Test Item Value Reference Range Interpretation Comments Eosinophils # (test code 0.0 See_Comment N [A utomated message] The = Eosinophils #) system whic h generated this result tra nsmitted reference range : <=0.5. The reference r leo was not used to int erpret this result as normal/abnormal . [facility] StationTqraxpmDEYHPTOEIE5812-01-22 22:50:00 Test Item Value Reference Range Interpretation Comments Monocytes # (test code 0.4 See_Comment N [Aut omated message] The = Monocytes #) system which generated this result tra nsmitted reference range : <=0.8. The reference r leo was not used to int erpret this result as normal/abnormal . [facility] StationWngqomxEDHDURLSVE8650-12-09 22:50:00 Test Item Value Reference Range Interpretation Comments Segs-Bands # (test code = Segs-Bands #) 10.6 1.5-8.1 H [facility] StationYfhlvxnKCXEFMRGIX5772-39-33 22:50:00 Test Item Value Reference Range Interpretation Comments Lymphocytes # (test code = Lymphocytes 0.7 1.0-5.5 L #) [facility] StationEbzwnuoMWGNNXFYIW9859-29-36 22:50:00 Test Item Value Reference Range Interpretation Comments Monocytes (test code = Monocytes) 3.4 2.0-12.0 N [facility] StationKezafwvGDAJUDDXRI0563-62-80 22:50:00 Test Item Value Reference Range Interpretation Comments Plt Morph (test code = Normal (03/14/2012 N Plt Morph) 17:50:00) [facility] StationMyshsukJHJCSGIYYY6916-71-89 22:50:00 Test Item Value Reference Range Interpretation Comments Lymphocytes (test code = Lymphocytes) 6.0 20.0-40.0 L [facility] StationAtehnxwDBWMFGQQUP4996-57-16 22:50:00 Test Item Value Reference Range Interpretation Comments Eosinophils (test code = 0.0 See_Comment N [A utomated message] The Eosinophils) system which ge nerated this result tra nsmitted reference range : <=4.0. The reference r leo was not used to int erpret this result as normal/abnormal . [facility] StationRvqizeuKQERJTECLM3623-26-12 22:50:00 Test Item Value Reference Range Interpretation Comments Segs (test code = Segs) 90.4 45.0-75.0 H [facility] StationXmqerowFOZDLSXADM7394-07-34 22:50:00 Test Item Value Reference Range Interpretation Comments RBC Morph (test code = Normal (03/14/2012 N RBC Morph) 17:50:00) [facility]GexezfyBRZGCIGQD9275-34-20 22:50:00 Test Item Value Reference Range Interpretation Comments S Preg (test code = S Negative *NA*(03/14/2012 Preg) 17:50:00) [facility] HospitalUvtfyqrTBAETQKGV1052-83-68 22:50:00 Test Item Value Reference Range Interpretation Comments Lipase Lvl (test code = Lipase Lvl) 45 73-393 L [facility] HospitalEuctuyhIVBGXPTRO2542-99-30 22:50:00 Test Item Value Reference Range Interpretation Comments A/G Ratio (test code = A/G Ratio) 1.2 0.7-1.6 N [facility] HospitalCwlpcsyAXYTQJMXW8739-73-54 22:50:00 Test Item Value Reference Range Interpretation Comments Globulin (test code = Globulin) 3.8 2.0-4.0 N [facility] HospitalLcxfbygAPKQWYLKN7521-53-83 22:50:00 Test Item Value Reference Range Interpretation Comments B/C Ratio (test code = B/C Ratio) 21 6-25 N [facility] HospitalHjeowtlPMDEFPASN7865-89-68 22:50:00 Test Item Value Reference Range Interpretation Comments AGAP (test code = AGAP) 16.8 10.0-20.0 N [facility] HospitalDqvizqpUGTFDMABZ9399-07-02 22:50:00 Test Item Value Reference Range Interpretation Comments Bili Total (test code = Bili Total) 1.1 0.2-1.3 N [facility] HospitalWekaypuUAFTSFXAP1664-29-66 22:50:00 Test Item Value Reference Range Interpretation Comments Total Protein (test code = Total 8.2 6.4-8.4 N Protein) [facility] HospitalIutvvbePHSMQMAVB9536-47-82 22:50:00 Test Item Value Reference Range Interpretation Comments Potassium Lvl (test code = Potassium 3.8 3.5-5.1 N Lvl) [facility] HospitalDyiyrpnHLMAIMWNV1152-30-68 22:50:00 Test Item Value Reference Range Interpretation Comments Creatinine Lvl (test code = Creatinine 0.7 0.5-1.4 N Lvl) [facility] HospitalOrfivqcKDIXUFXEH9257-52-77 22:50:00 Test Item Value Reference Range Interpretation Comments Sodium Lvl (test code = Sodium Lvl) 139 135-145 N [facility] HospitalYykggblHUOJFFNQK1647-26-86 22:50:00 Test Item Value Reference Range Interpretation Comments Chloride Lvl (test code = Chloride Lvl) 99 95-109 N [facility] HospitalBpzclrbXISWFTIGM6077-91-12 22:50:00 Test Item Value Reference Range Interpretation Comments CO2 (test code = CO2) 27 24-32 N [facility] HospitalEneumtfNIMXMPSMA7468-89-95 22:50:00 Test Item Value Reference Range Interpretation Comments Glucose Lvl (test code = Glucose Lvl) 301 70-99 H [facility] HospitalOywydqgIAOBRDBAQ1502-88-64 22:50:00 Test Item Value Reference Range Interpretation Comments BUN (test code = BUN) 15 7-22 N [facility] HospitalRtscsejENBNVONED2091-47-76 22:50:00 Test Item Value Reference Range Interpretation Comments ALT (test code = ALT) 24 See_Comment N [Auto mated message] The system which ge nerated this result transmit rohit reference range : <=65. The reference range was not used to interpr et this result as reji l/abnormal. [facility] HospitalJzllwjrWRLCUNHJU6033-87-66 22:50:00 Test Item Value Reference Range Interpretation Comments AST (test code = AST) 20 See_Comment N [Auto mated message] The system which ge nerated this result transmit rohit reference range : <=37. The reference range was not used to interpr et this result as reji l/abnormal. [facility] HospitalDmabapqCAVFAHNCP6148-96-13 22:50:00 Test Item Value Reference Range Interpretation Comments Alk Phos (test code = Alk Phos) 67 39-136 N [facility] HospitalEyapqjnVGJVCJIUU7824-27-18 22:50:00 Test Item Value Reference Range Interpretation Comments Albumin Lvl (test code = Albumin Lvl) 4.4 3.5-5.0 N [facility] HospitalVsyuusnIKYNASFAY0621-39-78 22:50:00 Test Item Value Reference Range Interpretation Comments Calcium Lvl (test code = Calcium Lvl) 9.9 8.5-10.5 N [facility] StationPmxzfozTHKBRRGEWA7548-11-09 22:50:00 Test Item Value Reference Range Interpretation Comments MPV (test code = MPV) 11.8 7.4-10.4 H [facility] StationWemmcfnZPYUVQWRFW9752-25-33 22:50:00 Test Item Value Reference Range Interpretation Comments MCHC (test code = MCHC) 35.9 32.0-36.0 N [facility] StationRixiotbYRJKYZLFZJ1281-09-38 22:50:00 Test Item Value Reference Range Interpretation Comments MCH (test code = MCH) 31.2 pg 27.0-31.0 H [facility] StationMwcpztzXKZNIWSYYF7151-45-56 22:50:00 Test Item Value Reference Range Interpretation Comments Platelet (test code = Platelet) 189 133-450 N [facility] StationQeawtvgXUTZBNJEGH1707-50-02 22:50:00 Test Item Value Reference Range Interpretation Comments RDW (test code = RDW) 13.1 11.5-14.5 N [facility] StationXeztjteJFWKVRNGDO4409-90-95 22:50:00 Test Item Value Reference Range Interpretation Comments Hct (test code = Hct) 40.7 36.0-48.0 N [facility] StationLncsrfuDADEQNWKUW8102-89-21 22:50:00 Test Item Value Reference Range Interpretation Comments Hgb (test code = Hgb) 14.6 12.0-16.0 N [facility] StationRogooeiOLBHQUGESU7910-97-37 22:50:00 Test Item Value Reference Range Interpretation Comments MCV (test code = MCV) 87.0 81.0-99.0 N [facility] StationBnjydkxDUKLJWFSFR2636-34-12 22:50:00 Test Item Value Reference Range Interpretation Comments WBC (test code = WBC) 11.7 3.7-10.4 H [facility] StationMqzgypgWAURXGNJNA7617-80-31 22:50:00 Test Item Value Reference Range Interpretation Comments RBC (test code = RBC) 4.68 4.20-5.40 N [facility] StationMvdryneFMAXJMRRPF9589-89-22 22:50:00 Test Item Value Reference Range Interpretation Comments Basophils # (test code 0.0 See_Comment N [Aut omated message] The = Basophils #) system which generated this result tra nsmitted reference range : <=0.2. The reference r leo was not used to int erpret this result as normal/abnormal . [facility] StationMkzjyctYZLBZLZOSO6743-65-10 22:50:00 Test Item Value Reference Range Interpretation Comments Basophils (test code = 0.2 See_Comment N [Aut omated message] The Basophils) system which ge nerated this result tra nsmitted reference range : <=1.0. The reference r leo was not used to int erpret this result as normal/abnormal . [facility] StationDeztlicKVCGYFYNMG6001-83-43 22:50:00 Test Item Value Reference Range Interpretation Comments Eosinophils # (test code 0.0 See_Comment N [A utomated message] The = Eosinophils #) system wh h generated this result tra nsmitted reference range : <=0.5. The reference r leo was not used to int erpret this result as normal/abnormal . [facility] StationFvkmebhFJDJUYOJKB4849-99-99 22:50:00 Test Item Value Reference Range Interpretation Comments Monocytes # (test code 0.4 See_Comment N [Aut omated message] The = Monocytes #) system which generated this result tra nsmitted reference range : <=0.8. The reference r leo was not used to int erpret this result as normal/abnormal . [facility] StationKdoytjqDZTIBVWEJW8907-48-95 22:50:00 Test Item Value Reference Range Interpretation Comments Segs-Bands # (test code = Segs-Bands #) 10.6 1.5-8.1 H [facility] StationBishpmmMXLRSBSUVB7225-87-24 22:50:00 Test Item Value Reference Range Interpretation Comments Lymphocytes # (test code = Lymphocytes 0.7 1.0-5.5 L #) [facility] StationHptqlzcNPBXOAFYXM6203-09-87 22:50:00 Test Item Value Reference Range Interpretation Comments Monocytes (test code = Monocytes) 3.4 2.0-12.0 N [facility] StationGqxwpjvKAWEKHQGWN3609-53-80 22:50:00 Test Item Value Reference Range Interpretation Comments Plt Morph (test code = Normal (03/14/2012 N Plt Morph) 17:50:00) [facility] StationNlunlyqSHIMLJTYYV3986-72-43 22:50:00 Test Item Value Reference Range Interpretation Comments Lymphocytes (test code = Lymphocytes) 6.0 20.0-40.0 L [facility] StationAvvkfdtCKIBFRIFXE9121-75-44 22:50:00 Test Item Value Reference Range Interpretation Comments Eosinophils (test code = 0.0 See_Comment N [A utomated message] The Eosinophils) system which ge nerated this result tra nsmitted reference range : <=4.0. The reference r leo was not used to int erpret this result as normal/abnormal . [facility] StationXzeuqubAFXQHYSPJR7058-00-76 22:50:00 Test Item Value Reference Range Interpretation Comments Segs (test code = Segs) 90.4 45.0-75.0 H [facility] StationJbptqamFQYQKVDFVC2152-87-97 22:50:00 Test Item Value Reference Range Interpretation Comments RBC Morph (test code = Normal (03/14/2012 N RBC Morph) 17:50:00) [facility] GLUCOSE [id number] 23:43:00 Test Item Value Reference Range Interpretation Comments Gluc POC Lifscn (test code = Gluc POC 167 70-99 H Lifscn) [facility] GLUCOSE CPHLWRQ9062-60-48 23:43:00 Test Item Value Reference Range Interpretation Comments Comment1 (test code = Comment1) Notify RN/ [facility] [id number] 23:43:00 Test Item Value Reference Range Interpretation Comments Comment2 (test code = Comment2) Sliding Scale [facility]ann[facility] GLU[facility] [id number] 23:43:00 Test Item Value Reference Range Interpretation Comments Gluc POC Lifscn (test code = Gluc POC 167 70-99 H Lifscn) [facility] GLU[facility]SE [id number] 23:43:00 Test Item Value Reference Range Interpretation Comments Comment1 (test code = Comment1) Notify RN/ [facility]annEN[facility] GLU[facility]SE [id number] 23:43:00 Test Item Value Reference Range Interpretation Comments Comment2 (test code = Comment2) Sliding Scale [facility] GLU[facility]SE [id number] 23:43:00 Test Item Value Reference Range Interpretation Comments Gluc POC Lifscn (test code = Gluc POC 167 70-99 H Lifscn) [facility] GLUCOSE [id number] 23:43:00 Test Item Value Reference Range Interpretation Comments Comment1 (test code = Comment1) Notify RN/ [facility] GLUCOSE [id number] 23:43:00 Test Item Value Reference Range Interpretation Comments Comment2 (test code = Comment2) Sliding Scale [facility] GLUCOSE [id number] 23:43:00 Test Item Value Reference Range Interpretation Comments Gluc POC Lifscn (test code = Gluc POC 167 70-99 H Lifscn) [facility] GLUCOSE [id number] 23:43:00 Test Item Value Reference Range Interpretation Comments Comment1 (test code = Comment1) Notify RN/ [facility] GLU[facility]SE [id number] 23:43:00 Test Item Value Reference Range Interpretation Comments Comment2 (test code = Comment2) Sliding Scale [facility] GLUCOSE [id number] 23:43:00 Test Item Value Reference Range Interpretation Comments Gluc POC Lifscn (test code = Gluc POC 167 70-99 H Lifscn) [facility] GLUCOSE [id number] 23:43:00 Test Item Value Reference Range Interpretation Comments Comment1 (test code = Comment1) Notify RN/ [facility] GLUCOSE [id number] 23:43:00 Test Item Value Reference Range Interpretation Comments Comment2 (test code = Comment2) Sliding Scale [facility] GLUCOSE [id number] 17:40:00 Test Item Value Reference Range Interpretation Comments Gluc POC Lifscn (test code = Gluc POC 189 70-99 H Lifscn) [facility] GLUCOSE [id number] 17:40:00 Test Item Value Reference Range Interpretation Comments Comment1 (test code = Comment1) Notify RN/ [facility] GLUCOSE [id number] 17:40:00 Test Item Value Reference Range Interpretation Comments Comment2 (test code = Comment2) Sliding Scale [facility] GLUCOSE [id number] 17:40:00 Test Item Value Reference Range Interpretation Comments Gluc POC Lifscn (test code = Gluc POC 189 70-99 H Lifscn) [facility] GLUCOSE [id number] 17:40:00 Test Item Value Reference Range Interpretation Comments Comment1 (test code = Comment1) Notify RN/ [facility] GLUCOSE [id number] 17:40:00 Test Item Value Reference Range Interpretation Comments Comment2 (test code = Comment2) Sliding Scale [facility] GLU[facility]SE [id number] 17:40:00 Test Item Value Reference Range Interpretation Comments Gluc POC Lifscn (test code = Gluc POC 189 70-99 H Lifscn) [facility] GLUCOSE [id number] 17:40:00 Test Item Value Reference Range Interpretation Comments Comment1 (test code = Comment1) Notify RN/ [facility] GLU[facility]SE [id number] 17:40:00 Test Item Value Reference Range Interpretation Comments Comment2 (test code = Comment2) Sliding Scale [facility] GLUCOSE [id number] 17:40:00 Test Item Value Reference Range Interpretation Comments Gluc POC Lifscn (test code = Gluc POC 189 70-99 H Lifscn) [facility] GLUCOSE [id number] 17:40:00 Test Item Value Reference Range Interpretation Comments Comment1 (test code = Comment1) Notify RN/ [facility] GLUCOSE [id number] 17:40:00 Test Item Value Reference Range Interpretation Comments Comment2 (test code = Comment2) Sliding Scale [facility] GLU[facility]SE [id number] 17:40:00 Test Item Value Reference Range Interpretation Comments Gluc POC Lifscn (test code = Gluc POC 189 70-99 H Lifscn) [facility]annB[facility] GLUCOSE [id number] 17:40:00 Test Item Value Reference Range Interpretation Comments Comment1 (test code = Comment1) Notify RN/ [facility] GLUCOSE [id number] 17:40:00 Test Item Value Reference Range Interpretation Comments Comment2 (test code = Comment2) Sliding Scale [facility] GLU[facility]SE [id number] 13:34:00 Test Item Value Reference Range Interpretation Comments Comment2 (test code = Comment2) Sliding Scale [facility]annB[facility] GLUCOSE [id number] 13:34:00 Test Item Value Reference Range Interpretation Comments Gluc POC Lifscn (test code = Gluc POC 110 70-99 H Lifscn) [facility] GLU[facility]SE [id number] 13:34:00 Test Item Value Reference Range Interpretation Comments Comment1 (test code = Comment1) Notify RN/ [facility] GLU[facility]SE [id number] 13:34:00 Test Item Value Reference Range Interpretation Comments Comment2 (test code = Comment2) Sliding Scale [facility] GLU[facility]SE [id number] 13:34:00 Test Item Value Reference Range Interpretation Comments Gluc POC Lifscn (test code = Gluc POC 110 70-99 H Lifscn) [facility] [id number] 13:34:00 Test Item Value Reference Range Interpretation Comments Comment1 (test code = Comment1) Notify RN/ [facility] GLU[facility]SE [id number] 13:34:00 Test Item Value Reference Range Interpretation Comments Comment2 (test code = Comment2) Sliding Scale [facility] GLU[facility]SE [id number] 13:34:00 Test Item Value Reference Range Interpretation Comments Gluc POC Lifscn (test code = Gluc POC 110 70-99 H Lifscn) [facility] GLU[facility]SE [id number] 13:34:00 Test Item Value Reference Range Interpretation Comments Comment1 (test code = Comment1) Notify RN/ [facility]annB[facility]ERS[facility] GLUCOSE [id number] 13:34:00 Test Item Value Reference Range Interpretation Comments Comment2 (test code = Comment2) Sliding Scale [facility] GLUCOSE [id number] 13:34:00 Test Item Value Reference Range Interpretation Comments Gluc POC Lifscn (test code = Gluc POC 110 70-99 H Lifscn) [facility] GLUCOSE [id number] 13:34:00 Test Item Value Reference Range Interpretation Comments Comment1 (test code = Comment1) Notify RN/MD [facility] GLUCOSE [id number] 13:34:00 Test Item Value Reference Range Interpretation Comments Comment2 (test code = Comment2) Sliding Scale [facility] GLUCOSE [id number] 13:34:00 Test Item Value Reference Range Interpretation Comments Gluc POC Lifscn (test code = Gluc POC 110 70-99 H Lifscn) [facility] GLUCOSE [id number] 13:34:00 Test Item Value Reference Range Interpretation Comments Comment1 (test code = Comment1) Notify RN/ [facility]landQabqsvlJNYYWOUWT3320-30-71 00:00:00 Test Item Value Reference Range Interpretation Comments U Preg (test code = U Negative (11/28/2011 N Preg) 19:00:00) [facility]PfuhegaQJJZJVBZZR4438-04-23 00:00:00 Test Item Value Reference Range Interpretation Comments Micro? (test code = Performed (11/28/2011 N Micro?) 19:00:00) [facility]burgAqmhnncIMOJFDZIHE4043-94-27 00:00:00 Test Item Value Reference Range Interpretation Comments UA Sq Epi (test code Occasional /LPF N = UA Sq Epi) (11/28/2011 19:00:00) [facility]burgAmkuwjpOUPBEFVLPK4923-39-33 00:00:00 Test Item Value Reference Range Interpretation Comments UA RBC (test None Seen See_Comment N [Automated mes pastor] code = UA RBC) (11/28/2011 The system ich 19:00:00) generated this result transmitted ref erence range: <=2. The reference range was not used to int erpret this result as normal/abnormal . [facility]burgWdxajzrPKCNYXEEZU9373-19-84 00:00:00 Test Item Value Reference Range Interpretation Comments UA WBC (test code Occasional See_Comment [Automate d message] The = UA WBC) system which ge nerated this result tra nsmitted reference range : <=5. The reference range was not used to interpr et this result as normal/abnormal . [facility] AreaNchsnkxPRLEJMGYXJ7159-04-06 00:00:00 Test Item Value Reference Range Interpretation Comments UA Protein (test code Negative mg/dL N = UA Protein) (11/28/2011 19:00:00) [facility] AreaIblpavhARQQQXCVTY7747-87-61 00:00:00 Test Item Value Reference Range Interpretation Comments UA pH (test code = UA pH) 7.0 1 5.0-8.0 N [facility] AreaBubtpjrNFJDIMLPJD2651-88-52 00:00:00 Test Item Value Reference Range Interpretation Comments UA Spec Grav (test code = UA Spec 1.020 1 N Grav) [facility] AreaKinlgpdOSQBAHJZYQ8446-40-97 00:00:00 Test Item Value Reference Range Interpretation Comments UA Turbidity (test code = Clear (11/28/2011 N UA Turbidity) 19:00:00) [facility] AreaBddptorYRAYPKKBGX3866-48-93 00:00:00 Test Item Value Reference Range Interpretation Comments UA Color (test code = Yellow *NA*(11/28/2011 UA Color) 19:00:00) [facility] AreaEnpzezyJWUOWGFWUJ5873-88-21 00:00:00 Test Item Value Reference Range Interpretation Comments UA Urobilinogen (test code = UA 0.2 0.1-1.0 N Urobilinogen) [facility] AreaAarkcmpXCXCJMGTVK5401-70-67 00:00:00 Test Item Value Reference Range Interpretation Comments UA Blood (test code = Negative (11/28/2011 N UA Blood) 19:00:00) [facility] AreaUedkrsmEKVPLIGLHC1108-96-43 00:00:00 Test Item Value Reference Range Interpretation Comments UA Bili (test code = Negative *NA*(11/28/2011 UA Bili) 19:00:00) [facility] AreaStnftliFBOAZLGVCB9689-69-59 00:00:00 Test Item Value Reference Range Interpretation Comments UA Ketones (test code = >=80 mg/dL A UA Ketones) *ABN*(11/28/2011 19:00:00) [facility] AreaUgrkwvvZVZJMSNIDZ3192-52-40 00:00:00 Test Item Value Reference Range Interpretation Comments UA Glucose (test code = >=1000 mg/dL A UA Glucose) *ABN*(11/28/2011 19:00:00) [facility]LhbeqqnJLUQJLUTGC5378-38-45 00:00:00 Test Item Value Reference Range Interpretation Comments UA Nitrite (test code Negative (11/28/2011 N = UA Nitrite) 19:00:00) [facility]burgLehcqthVDYVBICTUV2461-40-05 00:00:00 Test Item Value Reference Range Interpretation Comments UA Leuk Est (test Negative (11/28/2011 N code = UA Leuk Est) 19:00:00) [facility]burgMbmcleaXBVXPOEWP9286-91-60 00:00:00 Test Item Value Reference Range Interpretation Comments U Preg (test code = U Negative (11/28/2011 N Preg) 19:00:00) [facility]hb[facility]CSFKXRAZGE7254-88-12 [facility]:00:00 Test Item Value Reference Range Interpretation Comments Micro? (test code = Performed (11/28/2011 N Micro?) 19:00:00) [facility]burgOqrmkpdDOGHFTVCCE2533-77-33 00:00:00 Test Item Value Reference Range Interpretation Comments UA Sq Epi (test code Occasional /LPF N = UA Sq Epi) (11/28/2011 19:00:00) [facility]burgNpzpeyvPNHDAMFRWT1579-66-15 00:00:00 Test Item Value Reference Range Interpretation Comments UA RBC (test None Seen See_Comment N [Automated mes pastor] code = UA RBC) (11/28/2011 The system ich 19:00:00) generated this result transmitted ref erence range: <=2. The reference range was not used to int erpret this result as normal/abnormal . [facility]burgRvhvtycJUMPXSUBRU6918-30-04 00:00:00 Test Item Value Reference Range Interpretation Comments UA WBC (test code Occasional See_Comment [Automate d message] The = UA WBC) system which ge nerated this result tra nsmitted reference range : <=5. The reference range was not used to interpr et this result as normal/abnormal . [facility]burgMpdvvhnPCLPBHRVLF3556-06-98 00:00:00 Test Item Value Reference Range Interpretation Comments UA Protein (test code Negative mg/dL N = UA Protein) (11/28/2011 19:00:00) [facility] AreaJryjvnyBIGENDAOWE3950-04-60 00:00:00 Test Item Value Reference Range Interpretation Comments UA pH (test code = UA pH) 7.0 1 5.0-8.0 N [facility] AreaJbbofmgLLWGUSEDDG3710-91-99 00:00:00 Test Item Value Reference Range Interpretation Comments UA Spec Grav (test code = UA Spec 1.020 1 N Grav) [facility] AreaGtrbtiwZSDEWTSHGQ8950-18-67 00:00:00 Test Item Value Reference Range Interpretation Comments UA Turbidity (test code = Clear (11/28/2011 N UA Turbidity) 19:00:00) [facility] AreaMhfxzwmWLDLYMHYUD0029-12-70 00:00:00 Test Item Value Reference Range Interpretation Comments UA Color (test code = Yellow *NA*(11/28/2011 UA Color) 19:00:00) [facility] AreaOaqrwejSGQERKAPHI7020-00-49 00:00:00 Test Item Value Reference Range Interpretation Comments UA Urobilinogen (test code = UA 0.2 0.1-1.0 N Urobilinogen) [facility] AreaWduhrbeEWPQJKUCMX4442-21-18 00:00:00 Test Item Value Reference Range Interpretation Comments UA Blood (test code = Negative (11/28/2011 N UA Blood) 19:00:00) [facility] AreaTgzvnswIDTUVIWCKG2776-05-88 00:00:00 Test Item Value Reference Range Interpretation Comments UA Bili (test code = Negative *NA*(11/28/2011 UA Bili) 19:00:00) [facility] AreaKmemkpkAMXVAURLLR9618-76-99 00:00:00 Test Item Value Reference Range Interpretation Comments UA Ketones (test code = >=80 mg/dL A UA Ketones) *ABN*(11/28/2011 19:00:00) [facility] AreaBmcdcgcGFCWALZWXZ8368-90-85 00:00:00 Test Item Value Reference Range Interpretation Comments UA Glucose (test code = >=1000 mg/dL A UA Glucose) *ABN*(11/28/2011 19:00:00) [facility] AreaIiptceyGNBFWYGJHL2021-22-14 00:00:00 Test Item Value Reference Range Interpretation Comments UA Nitrite (test code Negative (11/28/2011 N = UA Nitrite) 19:00:00) [facility] AreaAijnqfuJNULFZFUZR0777-58-53 00:00:00 Test Item Value Reference Range Interpretation Comments UA Leuk Est (test Negative (11/28/2011 N code = UA Leuk Est) 19:00:00) [facility]burgPilyrhnTKFENSLZR8909-57-61 00:00:00 Test Item Value Reference Range Interpretation Comments U Preg (test code = U Negative (11/28/2011 N Preg) 19:00:00) [facility]burgRgckihlGFASFJHSER7519-76-61 00:00:00 Test Item Value Reference Range Interpretation Comments Micro? (test code = Performed (11/28/2011 N Micro?) 19:00:00) [facility]burgDztwhozZBBIFNOOZV1259-10-72 00:00:00 Test Item Value Reference Range Interpretation Comments UA Sq Epi (test code Occasional /LPF N = UA Sq Epi) (11/28/2011 19:00:00) [facility] HospitalOhsvhhfTBHUAEKRCA7694-55-84 00:00:00 Test Item Value Reference Range Interpretation Comments UA RBC (test None Seen See_Comment N [Automated mes pastor] code = UA RBC) (11/28/2011 The system ich 19:00:00) generated this result transmitted ref erence range: <=2. The reference range was not used to int erpret this result as normal/abnormal . [facility]burgObfqalkHVXGIRAGED4293-55-90 00:00:00 Test Item Value Reference Range Interpretation Comments UA WBC (test code Occasional See_Comment [Automate d message] The = UA WBC) system which ge nerated this result tra nsmitted reference range : <=5. The reference range was not used to interpr et this result as normal/abnormal . [facility]burgJoqzrssLAUCBDNAJA0695-73-21 00:00:00 Test Item Value Reference Range Interpretation Comments UA Protein (test code Negative mg/dL N = UA Protein) (11/28/2011 19:00:00) [facility]burgBhnwgptRXMUORVWWL9889-93-41 00:00:00 Test Item Value Reference Range Interpretation Comments UA pH (test code = UA pH) 7.0 1 5.0-8.0 N [facility]burgBxwlcwcQXUYFGKQSJ5980-44-70 00:00:00 Test Item Value Reference Range Interpretation Comments UA Spec Grav (test code = UA Spec 1.020 1 N Grav) [facility]burgEfobpckOQJXCPCUCO9107-10-42 00:00:00 Test Item Value Reference Range Interpretation Comments UA Turbidity (test code = Clear (11/28/2011 N UA Turbidity) 19:00:00) [facility]burgFsmwvfsJQMKAMWJEC6005-49-59 00:00:00 Test Item Value Reference Range Interpretation Comments UA Color (test code = Yellow *NA*(11/28/2011 UA Color) 19:00:00) [facility]burgSaiqvahMULORQTLPX7487-56-96 00:00:00 Test Item Value Reference Range Interpretation Comments UA Urobilinogen (test code = UA 0.2 0.1-1.0 N Urobilinogen) [facility]burgPmjbuglCEOLKKEXOG5036-61-07 00:00:00 Test Item Value Reference Range Interpretation Comments UA Blood (test code = Negative (11/28/2011 N UA Blood) 19:00:00) [facility] HospitalWpnhieoSUCECTMPXY9440-37-48 00:00:00 Test Item Value Reference Range Interpretation Comments UA Bili (test code = Negative *NA*(11/28/2011 UA Bili) 19:00:00) [facility]burgXxxlrntQGJYJAXKAZ0613-40-51 00:00:00 Test Item Value Reference Range Interpretation Comments UA Ketones (test code = >=80 mg/dL A UA Ketones) *ABN*(11/28/2011 19:00:00) [facility]burgLpgngxkSWHGRINBKO7766-98-16 00:00:00 Test Item Value Reference Range Interpretation Comments UA Glucose (test code = >=1000 mg/dL A UA Glucose) *ABN*(11/28/2011 19:00:00) [facility]burgXooiahsLWJEAFAHEG6906-67-27 00:00:00 Test Item Value Reference Range Interpretation Comments UA Nitrite (test code Negative (11/28/2011 N = UA Nitrite) 19:00:00) [facility]burgSdlvvlmBNBQDIFHEO8761-90-64 00:00:00 Test Item Value Reference Range Interpretation Comments UA Leuk Est (test Negative (11/28/2011 N code = UA Leuk Est) 19:00:00) [facility]burgZewuzizILNQCKVXB5447-88-42 00:00:00 Test Item Value Reference Range Interpretation Comments U Preg (test code = U Negative (11/28/2011 N Preg) 19:00:00) [facility]inburgXniquylTMLAGOVZIS6019-11-33 00:00:00 Test Item Value Reference Range Interpretation Comments Micro? (test code = Performed (11/28/2011 N Micro?) 19:00:00) [facility] HospitalFlzmmacJWGTASZWIV5214-89-30 00:00:00 Test Item Value Reference Range Interpretation Comments UA Sq Epi (test code Occasional /LPF N = UA Sq Epi) (11/28/2011 19:00:00) [facility] HospitalUasgjreDEYKHIMTGY9080-12-03 00:00:00 Test Item Value Reference Range Interpretation Comments UA RBC (test None Seen See_Comment N [Automated mes pastor] code = UA RBC) (11/28/2011 The system wh ich 19:00:00) generated this result transmitted ref erence range: <=2. The reference range was not used to int erpret this result as normal/abnormal . [facility] HospitalNazyjarDLOSEBRHBJ9579-65-07 00:00:00 Test Item Value Reference Range Interpretation Comments UA WBC (test code Occasional See_Comment [Automate d message] The = UA WBC) system which ge nerated this result tra nsmitted reference range : <=5. The reference range was not used to interpr et this result as normal/abnormal . [facility]burgUowrwnaYLYPCQYFIN4698-78-80 00:00:00 Test Item Value Reference Range Interpretation Comments UA Protein (test code Negative mg/dL N = UA Protein) (11/28/2011 19:00:00) [facility] HospitalBtyciabHXXIKPLVNB5697-46-42 00:00:00 Test Item Value Reference Range Interpretation Comments UA pH (test code = UA pH) 7.0 1 5.0-8.0 N [facility] HospitalFjsfcexTZNCNWMMZQ2604-80-11 00:00:00 Test Item Value Reference Range Interpretation Comments UA Spec Grav (test code = UA Spec 1.020 1 N Grav) [facility] HospitalRxdbwfoFUJWTRHXBK1223-42-46 00:00:00 Test Item Value Reference Range Interpretation Comments UA Turbidity (test code = Clear (11/28/2011 N UA Turbidity) 19:00:00) [facility] HospitalGkaccliIAJLAEVYGU4712-61-37 00:00:00 Test Item Value Reference Range Interpretation Comments UA Color (test code = Yellow *NA*(11/28/2011 UA Color) 19:00:00) [facility] HospitalKrtkphgQBDASGGHYK1158-05-05 00:00:00 Test Item Value Reference Range Interpretation Comments UA Urobilinogen (test code = UA 0.2 0.1-1.0 N Urobilinogen) [facility]burgVpptetzCOZFOGUDLJ1649-92-83 00:00:00 Test Item Value Reference Range Interpretation Comments UA Blood (test code = Negative (11/28/2011 N UA Blood) 19:00:00) [facility]burgYfvmzksJELSBCCTCL4910-18-61 00:00:00 Test Item Value Reference Range Interpretation Comments UA Bili (test code = Negative *NA*(11/28/2011 UA Bili) 19:00:00) [facility]burgSecvmetUQHHYTZHOJ5297-65-77 00:00:00 Test Item Value Reference Range Interpretation Comments UA Ketones (test code = >=80 mg/dL A UA Ketones) *ABN*(11/28/2011 19:00:00) [facility] HospitalOlyixawZDGDXJLTUP4538-39-30 00:00:00 Test Item Value Reference Range Interpretation Comments UA Glucose (test code = >=1000 mg/dL A UA Glucose) *ABN*(11/28/2011 19:00:00) [facility]burgEypqlppIUBDZQEQUG3374-39-16 00:00:00 Test Item Value Reference Range Interpretation Comments UA Nitrite (test code Negative (11/28/2011 N = UA Nitrite) 19:00:00) [facility]burgWtdmsbkVWPPYEGCPX1591-46-18 00:00:00 Test Item Value Reference Range Interpretation Comments UA Leuk Est (test Negative (11/28/2011 N code = UA Leuk Est) 19:00:00) [facility]landZjpiyukNDGDOQLAI6095-04-67 00:00:00 Test Item Value Reference Range Interpretation Comments U Preg (test code = U Negative (11/28/2011 N Preg) 19:00:00) [facility]burgXvccuzmDLKFTEAHZG3890-12-41 00:00:00 Test Item Value Reference Range Interpretation Comments Micro? (test code = Performed (11/28/2011 N Micro?) 19:00:00) [facility] HospitalRmfwxzuPRWSBHBEKK3385-69-48 00:00:00 Test Item Value Reference Range Interpretation Comments UA Sq Epi (test code Occasional /LPF N = UA Sq Epi) (11/28/2011 19:00:00) [facility] HospitalGowygvpHTDGAGSBMJ9164-11-04 00:00:00 Test Item Value Reference Range Interpretation Comments UA RBC (test None Seen See_Comment N [Automated mes pastor] code = UA RBC) (11/28/2011 The system wh ich 19:00:00) generated this result transmitted ref erence range: <=2. The reference range was not used to int erpret this result as normal/abnormal . [facility]burgFjibugnNREQZHZUYX3861-77-57 00:00:00 Test Item Value Reference Range Interpretation Comments UA WBC (test code Occasional See_Comment [Automate d message] The = UA WBC) system which ge nerated this result tra nsmitted reference range : <=5. The reference range was not used to interpr et this result as normal/abnormal . [facility]burgEqaozskHJURYJHEMU3908-83-70 00:00:00 Test Item Value Reference Range Interpretation Comments UA Protein (test code Negative mg/dL N = UA Protein) (11/28/2011 19:00:00) [facility] HospitalAnkpjoqLGOSXKSKRR1868-19-53 00:00:00 Test Item Value Reference Range Interpretation Comments UA pH (test code = UA pH) 7.0 1 5.0-8.0 N [facility]burgUddviitFMMWGMDXSG3159-11-90 00:00:00 Test Item Value Reference Range Interpretation Comments UA Spec Grav (test code = UA Spec 1.020 1 N Grav) [facility]inburgZkbsltwPZJGPERPQA1184-02-65 00:00:00 Test Item Value Reference Range Interpretation Comments UA Turbidity (test code = Clear (11/28/2011 N UA Turbidity) 19:00:00) [facility]burgBaluzpqXVAPVYRBSF9717-51-73 00:00:00 Test Item Value Reference Range Interpretation Comments UA Color (test code = Yellow *NA*(11/28/2011 UA Color) 19:00:00) [facility]burgWrffokeLUHDDFNNBM3002-54-83 00:00:00 Test Item Value Reference Range Interpretation Comments UA Urobilinogen (test code = UA 0.2 0.1-1.0 N Urobilinogen) [facility]inburgBncyltwIQJTKNCPDA0232-25-05 00:00:00 Test Item Value Reference Range Interpretation Comments UA Blood (test code = Negative (11/28/2011 N UA Blood) 19:00:00) [facility]burgUevttvsIEIIKTZJVB8707-65-69 00:00:00 Test Item Value Reference Range Interpretation Comments UA Bili (test code = Negative *NA*(11/28/2011 UA Bili) 19:00:00) [facility]burgNtrakjyYCMAXYVHWD3740-10-62 00:00:00 Test Item Value Reference Range Interpretation Comments UA Ketones (test code = >=80 mg/dL A UA Ketones) *ABN*(11/28/2011 19:00:00) [facility]burgSorvchuUNFYTPDVDZ2902-02-32 00:00:00 Test Item Value Reference Range Interpretation Comments UA Glucose (test code = >=1000 mg/dL A UA Glucose) *ABN*(11/28/2011 19:00:00) [facility]burgAhawfwxPGKWWQHBZD8735-88-42 00:00:00 Test Item Value Reference Range Interpretation Comments UA Nitrite (test code Negative (11/28/2011 N = UA Nitrite) 19:00:00) [facility]inburgOadebnbRHMQTVENTB0825-77-69 00:00:00 Test Item Value Reference Range Interpretation Comments UA Leuk Est (test Negative (11/28/2011 N code = UA Leuk Est) 19:00:00) [facility]inburgRpjxnkaQWZSZUHGE5303-09-89 20:41:00 Test Item Value Reference Range Interpretation Comments pO2 Roberth (test code = pO2 Roberth) 60 20-49 H [facility] HospitalZpbhugiOIKGYWTDR7168-85-85 20:41:00 Test Item Value Reference Range Interpretation Comments pCO2 Roberth (test code = pCO2 Roberth) 41 38-52 N [facility] HospitalMilkbfqNHPGTFEAH5123-76-85 20:41:00 Test Item Value Reference Range Interpretation Comments pH Roberth (test code = pH Roberth) 7.45 7.28-7.42 H [facility] HospitalJdibxnhLKTRHZEPA5498-29-50 20:41:00 Test Item Value Reference Range Interpretation Comments Temp Roberth (test code = Temp Roberth) 37.0 [facility] HospitalHzuaylwAZEHQIDDU2705-69-11 20:41:00 Test Item Value Reference Range Interpretation Comments O2 Sat Roberth (test code = O2 Sat Roberth) 92.0 40.0-70.0 H [facility] HospitalEympttwKKIPAYLVT3279-72-49 20:41:00 Test Item Value Reference Range Interpretation Comments BE Roberth (test code = 4 See_Comment H [Automa rohit message] The BE Roberth) system which ge nerated this result transmit rohit reference range : <=2. The reference range was not used to interpr et this result as reji l/abnormal. [facility] HospitalQlzzjznFDVUUMLQJ8388-23-71 20:41:00 Test Item Value Reference Range Interpretation Comments HCO3 Roberth (test code = HCO3 Roberth) 28.5 22.0-26.0 H [facility] HospitalMukeprrEIWWRQNYY0963-17-12 20:41:00 Test Item Value Reference Range Interpretation Comments pO2 Roberth (test code = pO2 Roberth) 60 20-49 H [facility] HospitalRehmkroJQUASGSOX8515-51-63 20:41:00 Test Item Value Reference Range Interpretation Comments pCO2 Roberth (test code = pCO2 Roberth) 41 38-52 N [facility] HospitalJlfealtLYVTTSUCY9103-72-19 20:41:00 Test Item Value Reference Range Interpretation Comments pH Roberth (test code = pH Roberth) 7.45 7.28-7.42 H [facility] HospitalAxkfjfcIWMZBQYUX1302-67-46 20:41:00 Test Item Value Reference Range Interpretation Comments Temp Roberth (test code = Temp Roberth) 37.0 [facility] HospitalTlergieBLIPQSKVT3878-76-74 20:41:00 Test Item Value Reference Range Interpretation Comments O2 Sat Roberth (test code = O2 Sat Roberth) 92.0 40.0-70.0 H [facility] HospitalDpwjrchFYLCKNMAK8175-50-10 20:41:00 Test Item Value Reference Range Interpretation Comments BE Roberth (test code = 4 See_Comment H [Automa rohit message] The BE Roberth) system which ge nerated this result transmit rohit reference range : <=2. The reference range was not used to interpr et this result as reji l/abnormal. [facility] HospitalRisjyvrETTTCPJPQ1601-27-72 20:41:00 Test Item Value Reference Range Interpretation Comments HCO3 Roberth (test code = HCO3 Roberth) 28.5 22.0-26.0 H [facility] HospitalJrpboepKFZYOUPOL9748-60-28 20:41:00 Test Item Value Reference Range Interpretation Comments pO2 Roberth (test code = pO2 Roberth) 60 20-49 H [facility] HospitalZmkzwkgHMTZHWGZN2587-88-13 20:41:00 Test Item Value Reference Range Interpretation Comments pCO2 Roberth (test code = pCO2 Roberth) 41 38-52 N [facility] HospitalGezlcdbZZFATJHOO4723-83-24 20:41:00 Test Item Value Reference Range Interpretation Comments pH Roberth (test code = pH Roberth) 7.45 7.28-7.42 H [facility] HospitalLrwrqilSKIBCDQMI8172-43-96 20:41:00 Test Item Value Reference Range Interpretation Comments Temp Roberth (test code = Temp Roberth) 37.0 [facility] HospitalWcdzvegLDTSXPFDB7750-79-83 20:41:00 Test Item Value Reference Range Interpretation Comments O2 Sat Roberth (test code = O2 Sat Roberth) 92.0 40.0-70.0 H [facility] HospitalXirlylyLIPYRKZHC0199-81-57 20:41:00 Test Item Value Reference Range Interpretation Comments BE Roberth (test code = 4 See_Comment H [Automa rohit message] The BE Roberth) system which ge nerated this result transmit rohit reference range : <=2. The reference range was not used to interpr et this result as reji l/abnormal. [facility] HospitalKexqwkdAVMDGJVJR2469-94-63 20:41:00 Test Item Value Reference Range Interpretation Comments HCO3 Roberth (test code = HCO3 Roberth) 28.5 22.0-26.0 H [facility] HospitalHaaihjgSAFBLCOFF8368-77-67 20:41:00 Test Item Value Reference Range Interpretation Comments pO2 Roberth (test code = pO2 Roberth) 60 20-49 H [facility] HospitalGdcdumoQWCCKXMMG7806-17-80 20:41:00 Test Item Value Reference Range Interpretation Comments pCO2 Roberth (test code = pCO2 Roberth) 41 38-52 N [facility] HospitalChighicEDEPMBUKZ1611-27-43 20:41:00 Test Item Value Reference Range Interpretation Comments pH Roberth (test code = pH Roberth) 7.45 7.28-7.42 H [facility] HospitalLpacidxWNLVNTVBE8863-22-84 20:41:00 Test Item Value Reference Range Interpretation Comments Temp Roberth (test code = Temp Roberth) 37.0 [facility] HospitalEvdvvxtAFBYGUMIL7156-38-04 20:41:00 Test Item Value Reference Range Interpretation Comments O2 Sat Roberth (test code = O2 Sat Roberth) 92.0 40.0-70.0 H [facility] HospitalKrpimyhODXFHUICY2165-10-68 20:41:00 Test Item Value Reference Range Interpretation Comments BE Roberth (test code = 4 See_Comment H [Automa rohit message] The BE Roberth) system which ge nerated this result transmit rohit reference range : <=2. The reference range was not used to interpr et this result as reji l/abnormal. [facility] HospitalVlkwdznTFPOGYXMY8650-44-21 20:41:00 Test Item Value Reference Range Interpretation Comments HCO3 Roberth (test code = HCO3 Roberth) 28.5 22.0-26.0 H [facility] HospitalKzstovqYOCPZUETD4983-79-29 20:41:00 Test Item Value Reference Range Interpretation Comments pO2 Roberth (test code = pO2 Roberth) 60 20-49 H [facility] HospitalDpxsqezQVZEGBUQD0949-32-94 20:41:00 Test Item Value Reference Range Interpretation Comments pCO2 Roberth (test code = pCO2 Roberth) 41 38-52 N [facility] HospitalMnswtvwQYPBCIXBH3338-77-81 20:41:00 Test Item Value Reference Range Interpretation Comments pH Roberth (test code = pH Roberth) 7.45 7.28-7.42 H [facility] HospitalQvnblpiUJHAFIIEB7223-03-02 20:41:00 Test Item Value Reference Range Interpretation Comments Temp Roberth (test code = Temp Roberth) 37.0 [facility] HospitalFqkntxsRBRNEXKHB0803-52-85 20:41:00 Test Item Value Reference Range Interpretation Comments O2 Sat Roberth (test code = O2 Sat Roberth) 92.0 40.0-70.0 H [facility] HospitalGqrtfcxSGLRHUKTP1931-59-89 20:41:00 Test Item Value Reference Range Interpretation Comments BE Roberth (test code = 4 See_Comment H [Automa rohit message] The BE Roberth) system which ge nerated this result transmit rohit reference range : <=2. The reference range was not used to interpr et this result as reji l/abnormal. [facility] HospitalAxwlhbnZECMDQUPR8305-56-01 20:41:00 Test Item Value Reference Range Interpretation Comments HCO3 Roberth (test code = HCO3 Roberth) 28.5 22.0-26.0 H [facility] HospitalTthaedbCQBYWZRTB3488-30-52 20:00:00 Test Item Value Reference Range Interpretation Comments Lactic Acid Lvl (test code = Lactic 1.6 0.5-2.2 N Acid Lvl) [facility] HospitalYmwhwsqVBZRZILVW7235-63-57 20:00:00 Test Item Value Reference Range Interpretation Comments Lipase Lvl (test code = Lipase Lvl) 125 73-393 N [facility] HospitalWvfwbwqGDBNMEVVJ4158-10-94 20:00:00 Test Item Value Reference Range Interpretation Comments Albumin Lvl (test code = Albumin Lvl) 4.2 3.5-5.0 N [facility] HospitalHmxmdvhZJEFSXJRK5965-12-99 20:00:00 Test Item Value Reference Range Interpretation Comments CO2 (test code = CO2) 23 24-32 L [facility] HospitalOtrohfyXFFYSWQEP3802-71-19 20:00:00 Test Item Value Reference Range Interpretation Comments Chloride Lvl (test code = Chloride Lvl) 98 95-109 N [facility] HospitalFwyqdvzOIGTHVRNS9399-57-75 20:00:00 Test Item Value Reference Range Interpretation Comments Potassium Lvl (test code = Potassium 3.8 3.5-5.1 N Lvl) [facility] HospitalMfnycruXBDUUXMZJ7449-13-06 20:00:00 Test Item Value Reference Range Interpretation Comments Sodium Lvl (test code = Sodium Lvl) 138 135-145 N [facility] HospitalSaulkvlQFJCHHNCS0981-57-12 20:00:00 Test Item Value Reference Range Interpretation Comments Creatinine Lvl (test code = Creatinine 0.7 0.5-1.4 N Lvl) [facility] HospitalZzopsibDHWOSRYNS3811-31-14 20:00:00 Test Item Value Reference Range Interpretation Comments BUN (test code = BUN) 9 7-22 N [facility] HospitalDgdvvwpVNCQBTOBJ2342-07-07 20:00:00 Test Item Value Reference Range Interpretation Comments Glucose Lvl (test code = Glucose Lvl) 269 70-99 H [facility] HospitalLwqkwpwNHDQQVAAG0473-64-21 20:00:00 Test Item Value Reference Range Interpretation Comments B/C Ratio (test code = B/C Ratio) 13 6-25 N [facility] HospitalVnbkyvjTUFIQHIFT3862-86-51 20:00:00 Test Item Value Reference Range Interpretation Comments AGAP (test code = AGAP) 20.8 10.0-20.0 H [facility] HospitalQlnbfbtEAWEIHQHA6706-66-12 20:00:00 Test Item Value Reference Range Interpretation Comments Calcium Lvl (test code = Calcium Lvl) 9.3 8.5-10.5 N [facility] HospitalMeeltkhYQZAIOHLF0710-50-47 20:00:00 Test Item Value Reference Range Interpretation Comments Total Protein (test code = Total 6.7 6.4-8.4 N Protein) [facility] HospitalMfojnwzAOPTHJWHX8804-31-00 20:00:00 Test Item Value Reference Range Interpretation Comments A/G Ratio (test code = A/G Ratio) 1.7 0.7-1.6 H [facility] HospitalNkymcoyMVJOSCRAN3487-18-16 20:00:00 Test Item Value Reference Range Interpretation Comments Globulin (test code = Globulin) 2.5 2.0-4.0 N [facility] HospitalZkctxqtFJSKSDTZU7371-25-53 20:00:00 Test Item Value Reference Range Interpretation Comments AST (test code = AST) 18 See_Comment N [Auto mated message] The system which ge nerated this result transmit rohit reference range : <=37. The reference range was not used to interpr et this result as reij l/abnormal. [facility] HospitalZcpgknjEXSUSVNXH9826-94-22 20:00:00 Test Item Value Reference Range Interpretation Comments Alk Phos (test code = Alk Phos) 62 39-136 N [facility] HospitalCegdprzHTIPVJSLF1218-83-83 20:00:00 Test Item Value Reference Range Interpretation Comments ALT (test code = ALT) 32 See_Comment N [Auto mated message] The system which ge nerated this result transmit rohit reference range : <=65. The reference range was not used to interpr et this result as reji l/abnormal. [facility] HospitalVzbwicqWTTMRWJOA0696-50-57 20:00:00 Test Item Value Reference Range Interpretation Comments Bili Total (test code = Bili Total) 0.7 0.2-1.3 N [facility] StationEwjwphdZOEVEPZWXV9194-37-39 20:00:00 Test Item Value Reference Range Interpretation Comments Anisocyte (test code = 1+ *ABN*(11/28/2011 A Anisocyte) 15:00:00) [facility] StationXrhntnuIDPLTDWVYN8156-44-13 20:00:00 Test Item Value Reference Range Interpretation Comments Monocytes # (test code 0.1 See_Comment N [Aut omated message] The = Monocytes #) system which generated this result tra nsmitted reference range : <=0.8. The reference r leo was not used to int erpret this result as normal/abnormal . [facility] StationEfqomsqSZBAIQAQZM2203-21-39 20:00:00 Test Item Value Reference Range Interpretation Comments Eosinophils # (test code 0.0 See_Comment N [A utomated message] The = Eosinophils #) system whic h generated this result tra nsmitted reference range : <=0.5. The reference r leo was not used to int erpret this result as normal/abnormal . [facility] StationVeaajxuSWHKLUQBAF9479-90-92 20:00:00 Test Item Value Reference Range Interpretation Comments Basophils # (test code 0.0 See_Comment N [Aut omated message] The = Basophils #) system which generated this result tra nsmitted reference range : <=0.2. The reference r leo was not used to int erpret this result as normal/abnormal . [facility] StationMkaxtjtJYFTRBDYRH8386-12-87 20:00:00 Test Item Value Reference Range Interpretation Comments Neut Vac (test code = Slight *ABN*(11/28/2011 A Neut Vac) 15:00:00) [facility] StationIefkdrhLNWYMDPFEB3719-08-54 20:00:00 Test Item Value Reference Range Interpretation Comments Large Plt (test code = Slight *ABN*(11/28/2011 A Large Plt) 15:00:00) [facility] StationOaexgrdGPUZUMLXST6678-77-61 20:00:00 Test Item Value Reference Range Interpretation Comments Segs-Bands # (test code = Segs-Bands #) 5.7 1.5-8.1 N [facility] StationQdhrqioWIIHGQVPAX7734-19-66 20:00:00 Test Item Value Reference Range Interpretation Comments Lymphocytes # (test code = Lymphocytes 0.8 1.0-5.5 L #) [facility] StationItxoyhnLGQOIYKDBG1850-56-30 20:00:00 Test Item Value Reference Range Interpretation Comments Eosinophils (test code = 0.2 See_Comment N [A utomated message] The Eosinophils) system which ge nerated this result tra nsmitted reference range : <=4.0. The reference r leo was not used to int erpret this result as normal/abnormal . [facility] StationBajkyerFECFCBZRZC4042-08-14 20:00:00 Test Item Value Reference Range Interpretation Comments Basophils (test code = 0.0 See_Comment N [Aut omated message] The Basophils) system which ge nerated this result tra nsmitted reference range : <=1.0. The reference r leo was not used to int erpret this result as normal/abnormal . [facility] StationQrhjajbADWSDBYOOG2376-05-01 20:00:00 Test Item Value Reference Range Interpretation Comments Monocytes (test code = Monocytes) 1.9 2.0-12.0 L [facility] StationZcxwsxxXUYRWNMMTV2271-17-10 20:00:00 Test Item Value Reference Range Interpretation Comments Segs (test code = Segs) 86.2 45.0-75.0 H [facility] StationXpegwjkZIJRATXFTQ9631-89-96 20:00:00 Test Item Value Reference Range Interpretation Comments Lymphocytes (test code = Lymphocytes) 11.7 20.0-40.0 L [facility] StationXytqyisHPNQLWHFDO2459-75-54 20:00:00 Test Item Value Reference Range Interpretation Comments MPV (test code = MPV) 10.8 7.4-10.4 H [facility] StationCiofzluCZPMDAKNNT7382-42-62 20:00:00 Test Item Value Reference Range Interpretation Comments Platelet (test code = Platelet) 161 133-450 N [facility] StationLoeyrqnOMPEFSNHZT0647-66-11 20:00:00 Test Item Value Reference Range Interpretation Comments MCHC (test code = MCHC) 35.6 32.0-36.0 N [facility] StationAfnekosWGMEPQYHDN5807-81-81 20:00:00 Test Item Value Reference Range Interpretation Comments RDW (test code = RDW) 12.4 11.5-14.5 N [facility] StationLvxvyjzKUNSNDDKOH5776-66-20 20:00:00 Test Item Value Reference Range Interpretation Comments MCH (test code = MCH) 30.7 pg 27.0-31.0 N [facility] StationKgvhyfpFBICQALZYJ3295-71-75 20:00:00 Test Item Value Reference Range Interpretation Comments MCV (test code = MCV) 86.1 81.0-99.0 N [facility] StationFakqabnNWSTJTLHAQ7603-69-09 20:00:00 Test Item Value Reference Range Interpretation Comments Hct (test code = Hct) 33.6 36.0-48.0 L [facility] StationQknvfgbVDXUHEPMNP2272-18-95 20:00:00 Test Item Value Reference Range Interpretation Comments Hgb (test code = Hgb) 12.0 12.0-16.0 N [facility] StationHtbttgdEMEIKLXQXQ6570-28-03 20:00:00 Test Item Value Reference Range Interpretation Comments RBC (test code = RBC) 3.90 4.20-5.40 L [facility] StationHytzvifLYFBKZAXOY5893-31-72 20:00:00 Test Item Value Reference Range Interpretation Comments WBC (test code = WBC) 6.6 3.7-10.4 N [facility] HospitalPjcefomLNBLCUVQZ9865-54-13 20:00:00 Test Item Value Reference Range Interpretation Comments Lactic Acid Lvl (test code = Lactic 1.6 0.5-2.2 N Acid Lvl) [facility] HospitalWxidiksCBZOMNUED5839-79-75 20:00:00 Test Item Value Reference Range Interpretation Comments Lipase Lvl (test code = Lipase Lvl) 125 73-393 N [facility] HospitalKetrouuWCNFJWDMP0820-11-96 20:00:00 Test Item Value Reference Range Interpretation Comments Albumin Lvl (test code = Albumin Lvl) 4.2 3.5-5.0 N [facility] HospitalEdyuupyNTYNQPIVD6507-33-97 20:00:00 Test Item Value Reference Range Interpretation Comments CO2 (test code = CO2) 23 24-32 L [facility] HospitalFspifqoMPBGZLTCK9179-86-21 20:00:00 Test Item Value Reference Range Interpretation Comments Chloride Lvl (test code = Chloride Lvl) 98 95-109 N [facility] HospitalXsujgziGSQPFIEUO9606-00-28 20:00:00 Test Item Value Reference Range Interpretation Comments Potassium Lvl (test code = Potassium 3.8 3.5-5.1 N Lvl) [facility] HospitalWxyojauKQXIEKPLL1147-68-97 20:00:00 Test Item Value Reference Range Interpretation Comments Sodium Lvl (test code = Sodium Lvl) 138 135-145 N [facility] HospitalHwjwmnpUYOTGIICO1969-22-07 20:00:00 Test Item Value Reference Range Interpretation Comments Creatinine Lvl (test code = Creatinine 0.7 0.5-1.4 N Lvl) [facility] HospitalSekxbudKHHDUGJRW7909-58-86 20:00:00 Test Item Value Reference Range Interpretation Comments BUN (test code = BUN) 9 7-22 N [facility] HospitalCbsmxnkMJCNVNESI1550-12-59 20:00:00 Test Item Value Reference Range Interpretation Comments Glucose Lvl (test code = Glucose Lvl) 269 70-99 H [facility] HospitalLgesbyfYDTCNPPAS1502-25-64 20:00:00 Test Item Value Reference Range Interpretation Comments B/C Ratio (test code = B/C Ratio) 13 6-25 N [facility] HospitalJoqaqujZMIMCFJZR9195-32-91 20:00:00 Test Item Value Reference Range Interpretation Comments AGAP (test code = AGAP) 20.8 10.0-20.0 H [facility] HospitalKouqutkJNRYWTMJS0183-10-35 20:00:00 Test Item Value Reference Range Interpretation Comments Calcium Lvl (test code = Calcium Lvl) 9.3 8.5-10.5 N [facility] HospitalKrogmvaDRSFTTSUB5281-95-15 20:00:00 Test Item Value Reference Range Interpretation Comments Total Protein (test code = Total 6.7 6.4-8.4 N Protein) [facility] HospitalFwkslczILOWRPWTV5742-66-62 20:00:00 Test Item Value Reference Range Interpretation Comments A/G Ratio (test code = A/G Ratio) 1.7 0.7-1.6 H [facility] HospitalGrjfspxBGUKUGVHO8608-78-84 20:00:00 Test Item Value Reference Range Interpretation Comments Globulin (test code = Globulin) 2.5 2.0-4.0 N [facility] HospitalUfwruylWWJSVJBTL4779-82-76 20:00:00 Test Item Value Reference Range Interpretation Comments AST (test code = AST) 18 See_Comment N [Auto mated message] The system which ge nerated this result transmit rohit reference range : <=37. The reference range was not used to interpr et this result as reji l/abnormal. [facility] HospitalCerzpufGRUIUZJMA7149-74-50 20:00:00 Test Item Value Reference Range Interpretation Comments Alk Phos (test code = Alk Phos) 62 39-136 N [facility] HospitalHwwtobgSXJEWGIOF0462-99-16 20:00:00 Test Item Value Reference Range Interpretation Comments ALT (test code = ALT) 32 See_Comment N [Auto mated message] The system which ge nerated this result transmit rohit reference range : <=65. The reference range was not used to interpr et this result as reji l/abnormal. [facility] HospitalDrhwjbgCZQISMING0763-72-22 20:00:00 Test Item Value Reference Range Interpretation Comments Bili Total (test code = Bili Total) 0.7 0.2-1.3 N [facility] StationJjiwiqaRLYKVLNURA6537-43-21 20:00:00 Test Item Value Reference Range Interpretation Comments Anisocyte (test code = 1+ *ABN*(11/28/2011 A Anisocyte) 15:00:00) [facility] StationYtjwdkiGOVQMOLARM4581-37-04 20:00:00 Test Item Value Reference Range Interpretation Comments Monocytes # (test code 0.1 See_Comment N [Aut omated message] The = Monocytes #) system which generated this result tra nsmitted reference range : <=0.8. The reference r leo was not used to int erpret this result as normal/abnormal . [facility] StationGngrfemHONNSCKCCR5044-11-31 20:00:00 Test Item Value Reference Range Interpretation Comments Eosinophils # (test code 0.0 See_Comment N [A utomated message] The = Eosinophils #) system [facility] h generated this result tra nsmitted reference range : <=0.5. The reference r leo was not used to int erpret this result as normal/abnormal . [facility] StationIbbfufeHRKLMHMHYT7812-79-26 20:00:00 Test Item Value Reference Range Interpretation Comments Basophils # (test code 0.0 See_Comment N [Aut omated message] The = Basophils #) system which generated this result tra nsmitted reference range : <=0.2. The reference r leo was not used to int erpret this result as normal/abnormal . [facility] StationWbfaauxXFASCNJQBJ9306-73-14 20:00:00 Test Item Value Reference Range Interpretation Comments Neut Vac (test code = Slight *ABN*(11/28/2011 A Neut Vac) 15:00:00) [facility] StationGedsbwdLPCZOHZAWA1610-24-27 20:00:00 Test Item Value Reference Range Interpretation Comments Large Plt (test code = Slight *ABN*(11/28/2011 A Large Plt) 15:00:00) [facility] StationSapaorjVWJLVRVJGT1926-26-75 20:00:00 Test Item Value Reference Range Interpretation Comments Segs-Bands # (test code = Segs-Bands #) 5.7 1.5-8.1 N [facility] StationJfdymymBDVJZCSHKL9403-20-71 20:00:00 Test Item Value Reference Range Interpretation Comments Lymphocytes # (test code = Lymphocytes 0.8 1.0-5.5 L #) [facility] StationMfgkbsuBRFAYQNPHV5096-75-09 20:00:00 Test Item Value Reference Range Interpretation Comments Eosinophils (test code = 0.2 See_Comment N [A utomated message] The Eosinophils) system which ge nerated this result tra nsmitted reference range : <=4.0. The reference r leo was not used to int erpret this result as normal/abnormal . [facility] StationOsiyfpyPKCXZGQXWU5905-33-78 20:00:00 Test Item Value Reference Range Interpretation Comments Basophils (test code = 0.0 See_Comment N [Aut omated message] The Basophils) system which ge nerated this result tra nsmitted reference range : <=1.0. The reference r leo was not used to int erpret this result as normal/abnormal . [facility] StationPozokwdNMBROIRISK7671-66-60 20:00:00 Test Item Value Reference Range Interpretation Comments Monocytes (test code = Monocytes) 1.9 2.0-12.0 L [facility] StationYoohwuaAUANCSTKCQ2484-60-28 20:00:00 Test Item Value Reference Range Interpretation Comments Segs (test code = Segs) 86.2 45.0-75.0 H [facility] StationOpsrkxtQETZHCQGGU8949-14-88 20:00:00 Test Item Value Reference Range Interpretation Comments Lymphocytes (test code = Lymphocytes) 11.7 20.0-40.0 L [facility] StationJmzssgmYQDVFGZJLB2274-61-01 20:00:00 Test Item Value Reference Range Interpretation Comments MPV (test code = MPV) 10.8 7.4-10.4 H [facility] StationWxidollHDBKQRKZHK5064-26-93 20:00:00 Test Item Value Reference Range Interpretation Comments Platelet (test code = Platelet) 161 133-450 N [facility] StationMlwvcgmYINUOOXKIL9068-52-32 20:00:00 Test Item Value Reference Range Interpretation Comments MCHC (test code = MCHC) 35.6 32.0-36.0 N [facility] StationBidpbgmNWENODZUAP6938-55-48 20:00:00 Test Item Value Reference Range Interpretation Comments RDW (test code = RDW) 12.4 11.5-14.5 N [facility] StationRylfwwcCKUDZSXANB7548-20-25 20:00:00 Test Item Value Reference Range Interpretation Comments MCH (test code = MCH) 30.7 pg 27.0-31.0 N [facility] StationCiitklmJRRHYLJDON5952-41-51 20:00:00 Test Item Value Reference Range Interpretation Comments MCV (test code = MCV) 86.1 81.0-99.0 N [facility] StationOapzmqvGYDVHGJYHU5235-22-42 20:00:00 Test Item Value Reference Range Interpretation Comments Hct (test code = Hct) 33.6 36.0-48.0 L [facility] StationAxcqshiKUKNMTUHCL4966-91-70 20:00:00 Test Item Value Reference Range Interpretation Comments Hgb (test code = Hgb) 12.0 12.0-16.0 N [facility] StationIrmnvnkDHNHKSFAXX0155-31-22 20:00:00 Test Item Value Reference Range Interpretation Comments RBC (test code = RBC) 3.90 4.20-5.40 L [facility] StationNsrmsmhLYQEHNYBXE3959-92-55 20:00:00 Test Item Value Reference Range Interpretation Comments WBC (test code = WBC) 6.6 3.7-10.4 N [facility] HospitalSevyjgbWGQIQJYJC4827-54-32 20:00:00 Test Item Value Reference Range Interpretation Comments Lactic Acid Lvl (test code = Lactic 1.6 0.5-2.2 N Acid Lvl) [facility] HospitalAqabrhzGIVSLFWAR8208-69-64 20:00:00 Test Item Value Reference Range Interpretation Comments Lipase Lvl (test code = Lipase Lvl) 125 73-393 N [facility] HospitalXlarjxtGVLGVUYVM1231-05-55 20:00:00 Test Item Value Reference Range Interpretation Comments Albumin Lvl (test code = Albumin Lvl) 4.2 3.5-5.0 N [facility] HospitalTrbqoslLFUXQOBSY8077-55-93 20:00:00 Test Item Value Reference Range Interpretation Comments CO2 (test code = CO2) 23 24-32 L [facility] HospitalYzdslwxWAIXDROKY8548-82-05 20:00:00 Test Item Value Reference Range Interpretation Comments Chloride Lvl (test code = Chloride Lvl) 98 95-109 N [facility] HospitalNglmsamBJUGPCGTE0411-03-39 20:00:00 Test Item Value Reference Range Interpretation Comments Potassium Lvl (test code = Potassium 3.8 3.5-5.1 N Lvl) [facility] HospitalLzocdxwRCRRMAHXY2324-47-31 20:00:00 Test Item Value Reference Range Interpretation Comments Sodium Lvl (test code = Sodium Lvl) 138 135-145 N [facility] HospitalMeshgsoLURJYEAOQ7944-92-42 20:00:00 Test Item Value Reference Range Interpretation Comments Creatinine Lvl (test code = Creatinine 0.7 0.5-1.4 N Lvl) [facility] HospitalVxzbwpuZWPZOTZUH8387-14-19 20:00:00 Test Item Value Reference Range Interpretation Comments BUN (test code = BUN) 9 7-22 N [facility] HospitalNkmxgjpCRBWNCLOO6024-77-16 20:00:00 Test Item Value Reference Range Interpretation Comments Glucose Lvl (test code = Glucose Lvl) 269 70-99 H [facility] HospitalSpijbabABOTZQQPY4830-97-29 20:00:00 Test Item Value Reference Range Interpretation Comments B/C Ratio (test code = B/C Ratio) 13 6-25 N [facility] HospitalVelzcscSBMVIPCAV1451-05-64 20:00:00 Test Item Value Reference Range Interpretation Comments AGAP (test code = AGAP) 20.8 10.0-20.0 H [facility] HospitalWlfsyrcZBUIEYQRI5968-89-42 20:00:00 Test Item Value Reference Range Interpretation Comments Calcium Lvl (test code = Calcium Lvl) 9.3 8.5-10.5 N [facility] HospitalDgrmyyxTACXGOMLE5859-03-71 20:00:00 Test Item Value Reference Range Interpretation Comments Total Protein (test code = Total 6.7 6.4-8.4 N Protein) [facility] HospitalBzbvbnjUDSFUMUEP5144-53-81 20:00:00 Test Item Value Reference Range Interpretation Comments A/G Ratio (test code = A/G Ratio) 1.7 0.7-1.6 H [facility] HospitalHzqscoxRMBQTTIZS2576-06-03 20:00:00 Test Item Value Reference Range Interpretation Comments Globulin (test code = Globulin) 2.5 2.0-4.0 N [facility] HospitalEkhvhehFBPIPDHMN1009-14-67 20:00:00 Test Item Value Reference Range Interpretation Comments AST (test code = AST) 18 See_Comment N [Auto mated message] The system which ge nerated this result transmit rohit reference range : <=37. The reference range was not used to interpr et this result as reji l/abnormal. [facility] HospitalUgjvaaoEMUCBMYMC2501-64-64 20:00:00 Test Item Value Reference Range Interpretation Comments Alk Phos (test code = Alk Phos) 62 39-136 N [facility] HospitalIwjgrnbGBPQLRWTH0556-85-01 20:00:00 Test Item Value Reference Range Interpretation Comments ALT (test code = ALT) 32 See_Comment N [Auto mated message] The system which ge nerated this result transmit rohit reference range : <=65. The reference range was not used to interpr et this result as reji l/abnormal. [facility] HospitalLktpgpgOBEUGESVR3870-11-70 20:00:00 Test Item Value Reference Range Interpretation Comments Bili Total (test code = Bili Total) 0.7 0.2-1.3 N [facility] StationHhxddxhLBYRQJRMPC8625-35-97 20:00:00 Test Item Value Reference Range Interpretation Comments Anisocyte (test code = 1+ *ABN*(11/28/2011 A Anisocyte) 15:00:00) [facility] StationLyhvvuqMGOZLKBYXN8762-94-70 20:00:00 Test Item Value Reference Range Interpretation Comments Monocytes # (test code 0.1 See_Comment N [Aut omated message] The = Monocytes #) system which generated this result tra nsmitted reference range : <=0.8. The reference r leo was not used to int erpret this result as normal/abnormal . [facility] StationQvnnxcyVQLLJMSPYU9204-72-41 20:00:00 Test Item Value Reference Range Interpretation Comments Eosinophils # (test code 0.0 See_Comment N [A utomated message] The = Eosinophils #) system whic h generated this result tra nsmitted reference range : <=0.5. The reference r leo was not used to int erpret this result as normal/abnormal . [facility] StationPmsfcarGQNVAYFEGW6257-84-16 20:00:00 Test Item Value Reference Range Interpretation Comments Basophils # (test code 0.0 See_Comment N [Aut omated message] The = Basophils #) system which generated this result tra nsmitted reference range : <=0.2. The reference r leo was not used to int erpret this result as normal/abnormal . [facility] StationAlcimlyXHALNUXUZS0939-13-62 20:00:00 Test Item Value Reference Range Interpretation Comments Neut Vac (test code = Slight *ABN*(11/28/2011 A Neut Vac) 15:00:00) [facility] StationSvbvjmnYJQAJWNNAZ1009-51-04 20:00:00 Test Item Value Reference Range Interpretation Comments Large Plt (test code = Slight *ABN*(11/28/2011 A Large Plt) 15:00:00) [facility] StationQzeonwwDMGKWBFKHJ0833-69-25 20:00:00 Test Item Value Reference Range Interpretation Comments Segs-Bands # (test code = Segs-Bands #) 5.7 1.5-8.1 N [facility] StationCwenotrHNEAQQOLRQ6080-43-57 20:00:00 Test Item Value Reference Range Interpretation Comments Lymphocytes # (test code = Lymphocytes 0.8 1.0-5.5 L #) [facility] StationQefnvkjIBNKJZXFIP8456-22-53 20:00:00 Test Item Value Reference Range Interpretation Comments Eosinophils (test code = 0.2 See_Comment N [A utomated message] The Eosinophils) system which ge nerated this result tra nsmitted reference range : <=4.0. The reference r leo was not used to int erpret this result as normal/abnormal . [facility] StationZfxrwpuLSPEPOGPEJ9545-19-38 20:00:00 Test Item Value Reference Range Interpretation Comments Basophils (test code = 0.0 See_Comment N [Aut omated message] The Basophils) system which ge nerated this result tra nsmitted reference range : <=1.0. The reference r leo was not used to int erpret this result as normal/abnormal . [facility] StationHnybnwsDKSXZYKHTI7357-77-78 20:00:00 Test Item Value Reference Range Interpretation Comments Monocytes (test code = Monocytes) 1.9 2.0-12.0 L [facility] StationKfhuflqTUZSNMEGAF3108-25-56 20:00:00 Test Item Value Reference Range Interpretation Comments Segs (test code = Segs) 86.2 45.0-75.0 H [facility] StationGnbbqyrYGHQWJQIGO8224-32-71 20:00:00 Test Item Value Reference Range Interpretation Comments Lymphocytes (test code = Lymphocytes) 11.7 20.0-40.0 L [facility] StationAtknoowOPZORUWWZO9809-78-14 20:00:00 Test Item Value Reference Range Interpretation Comments MPV (test code = MPV) 10.8 7.4-10.4 H [facility] StationXgfbsghJKSALOASKG2550-15-58 20:00:00 Test Item Value Reference Range Interpretation Comments Platelet (test code = Platelet) 161 133-450 N [facility] StationWuaukstOPXVHPDPYS5096-07-23 20:00:00 Test Item Value Reference Range Interpretation Comments MCHC (test code = MCHC) 35.6 32.0-36.0 N [facility] StationPdytvptNKOEYDYADJ1507-90-42 20:00:00 Test Item Value Reference Range Interpretation Comments RDW (test code = RDW) 12.4 11.5-14.5 N [facility] StationZuzicnsFEADCCXEUC4860-38-41 20:00:00 Test Item Value Reference Range Interpretation Comments MCH (test code = MCH) 30.7 pg 27.0-31.0 N [facility] StationPioxffdOQLSLOSCJS8060-87-47 20:00:00 Test Item Value Reference Range Interpretation Comments MCV (test code = MCV) 86.1 81.0-99.0 N [facility] StationWafrlngSTPCFTZQFC7905-92-27 20:00:00 Test Item Value Reference Range Interpretation Comments Hct (test code = Hct) 33.6 36.0-48.0 L [facility] StationZyiemagLSNFJDIBTR0998-34-36 20:00:00 Test Item Value Reference Range Interpretation Comments Hgb (test code = Hgb) 12.0 12.0-16.0 N [facility] StationOjksqowOVFSVDUCSJ6882-51-91 20:00:00 Test Item Value Reference Range Interpretation Comments RBC (test code = RBC) 3.90 4.20-5.40 L [facility] StationHsmxavbELRYZIAUXM7416-77-11 20:00:00 Test Item Value Reference Range Interpretation Comments WBC (test code = WBC) 6.6 3.7-10.4 N [facility] HospitalLijfkqaSKKSDYOFN5648-78-78 20:00:00 Test Item Value Reference Range Interpretation Comments Lactic Acid Lvl (test code = Lactic 1.6 0.5-2.2 N Acid Lvl) [facility] HospitalLztnoewEVCFBQEHU7717-67-88 20:00:00 Test Item Value Reference Range Interpretation Comments Lipase Lvl (test code = Lipase Lvl) 125 73-393 N [facility] HospitalLevtfrpREDLKFLQL5939-48-73 20:00:00 Test Item Value Reference Range Interpretation Comments Albumin Lvl (test code = Albumin Lvl) 4.2 3.5-5.0 N [facility] HospitalMknuhbxFXMDINRNW3320-49-27 20:00:00 Test Item Value Reference Range Interpretation Comments CO2 (test code = CO2) 23 24-32 L [facility] HospitalPafvuemLMBPRYKRD8478-65-32 20:00:00 Test Item Value Reference Range Interpretation Comments Chloride Lvl (test code = Chloride Lvl) 98 95-109 N [facility] HospitalRkmskhvVMMGVNJCD9960-43-11 20:00:00 Test Item Value Reference Range Interpretation Comments Potassium Lvl (test code = Potassium 3.8 3.5-5.1 N Lvl) [facility] HospitalYnajeidDAXPBYZFO8574-74-82 20:00:00 Test Item Value Reference Range Interpretation Comments Sodium Lvl (test code = Sodium Lvl) 138 135-145 N [facility] HospitalTfrajqeBZUGPYTRT1086-32-46 20:00:00 Test Item Value Reference Range Interpretation Comments Creatinine Lvl (test code = Creatinine 0.7 0.5-1.4 N Lvl) [facility] HospitalIipsoifFWPAKKHGI7504-09-36 20:00:00 Test Item Value Reference Range Interpretation Comments BUN (test code = BUN) 9 7-22 N [facility] HospitalTwedlkvCRDTQMEKA7253-24-65 20:00:00 Test Item Value Reference Range Interpretation Comments Glucose Lvl (test code = Glucose Lvl) 269 70-99 H [facility] HospitalDyitwrhBTOWCBQPJ4906-61-89 20:00:00 Test Item Value Reference Range Interpretation Comments B/C Ratio (test code = B/C Ratio) 13 6-25 N [facility] HospitalItzokrtXBOWHWTVD3865-27-82 20:00:00 Test Item Value Reference Range Interpretation Comments AGAP (test code = AGAP) 20.8 10.0-20.0 H [facility] HospitalTqlyhtgQPFZTYBIF3765-81-20 20:00:00 Test Item Value Reference Range Interpretation Comments Calcium Lvl (test code = Calcium Lvl) 9.3 8.5-10.5 N [facility] HospitalIfdwtklBXPBAKGOS6405-12-31 20:00:00 Test Item Value Reference Range Interpretation Comments Total Protein (test code = Total 6.7 6.4-8.4 N Protein) [facility] HospitalMjfttziEFCMPVZAT6398-88-52 20:00:00 Test Item Value Reference Range Interpretation Comments A/G Ratio (test code = A/G Ratio) 1.7 0.7-1.6 H [facility] HospitalDquscmrCYWUHXTYG7786-47-70 20:00:00 Test Item Value Reference Range Interpretation Comments Globulin (test code = Globulin) 2.5 2.0-4.0 N [facility] HospitalMqrdjhlUTBALSDPA1811-82-44 20:00:00 Test Item Value Reference Range Interpretation Comments AST (test code = AST) 18 See_Comment N [Auto mated message] The system which ge nerated this result transmit rohit reference range : <=37. The reference range was not used to interpr et this result as reji l/abnormal. [facility] HospitalFhdmwltZHDFXIUEJ6711-39-90 20:00:00 Test Item Value Reference Range Interpretation Comments Alk Phos (test code = Alk Phos) 62 39-136 N [facility] HospitalKfoebqiUXAGFCXMK5808-91-73 20:00:00 Test Item Value Reference Range Interpretation Comments ALT (test code = ALT) 32 See_Comment N [Auto mated message] The system which ge nerated this result transmit rohit reference range : <=65. The reference range was not used to interpr et this result as reji l/abnormal. [facility] HospitalEoiornfBFIADESVK6872-18-52 20:00:00 Test Item Value Reference Range Interpretation Comments Bili Total (test code = Bili Total) 0.7 0.2-1.3 N [facility] StationEvliucbEINPSDSJEU7551-61-36 20:00:00 Test Item Value Reference Range Interpretation Comments Anisocyte (test code = 1+ *ABN*(11/28/2011 A Anisocyte) 15:00:00) [facility] StationCqusopcRTGOGBNNTD9366-79-42 20:00:00 Test Item Value Reference Range Interpretation Comments Monocytes # (test code 0.1 See_Comment N [Aut omated message] The = Monocytes #) system which generated this result tra nsmitted reference range : <=0.8. The reference r leo was not used to int erpret this result as normal/abnormal . [facility] StationDatnyghVHJLOKIOPA6501-35-05 20:00:00 Test Item Value Reference Range Interpretation Comments Eosinophils # (test code 0.0 See_Comment N [A utomated message] The = Eosinophils #) system whic h generated this result tra nsmitted reference range : <=0.5. The reference r leo was not used to int erpret this result as normal/abnormal . [facility] StationTtcbylpEVFLHTDFST2983-84-74 20:00:00 Test Item Value Reference Range Interpretation Comments Basophils # (test code 0.0 See_Comment N [Aut omated message] The = Basophils #) system which generated this result tra nsmitted reference range : <=0.2. The reference r leo was not used to int erpret this result as normal/abnormal . [facility] StationZqssqroFXSYUQGCTE3417-41-74 20:00:00 Test Item Value Reference Range Interpretation Comments Neut Vac (test code = Slight *ABN*(11/28/2011 A Neut Vac) 15:00:00) [facility] StationMolhgnjLFPYUKGFVP5941-36-88 20:00:00 Test Item Value Reference Range Interpretation Comments Large Plt (test code = Slight *ABN*(11/28/2011 A Large Plt) 15:00:00) [facility] StationUbsdcvlKHXQCPIHJO3551-53-36 20:00:00 Test Item Value Reference Range Interpretation Comments Segs-Bands # (test code = Segs-Bands #) 5.7 1.5-8.1 N [facility] StationLjqysphXSAYZGJKSI6681-30-12 20:00:00 Test Item Value Reference Range Interpretation Comments Lymphocytes # (test code = Lymphocytes 0.8 1.0-5.5 L #) [facility] StationYktkmmmUSKCQEDWRN7464-16-44 20:00:00 Test Item Value Reference Range Interpretation Comments Eosinophils (test code = 0.2 See_Comment N [A utomated message] The Eosinophils) system which ge nerated this result tra nsmitted reference range : <=4.0. The reference r leo was not used to int erpret this result as normal/abnormal . [facility] StationBemeqvpUTPYRCIHBZ3697-88-92 20:00:00 Test Item Value Reference Range Interpretation Comments Basophils (test code = 0.0 See_Comment N [Aut omated message] The Basophils) system which ge nerated this result tra nsmitted reference range : <=1.0. The reference r leo was not used to int erpret this result as normal/abnormal . [facility] StationBceakjqYVUEIYBFMK1144-72-45 20:00:00 Test Item Value Reference Range Interpretation Comments Monocytes (test code = Monocytes) 1.9 2.0-12.0 L [facility] StationXdvmajtRYHVMWBCON9634-65-30 20:00:00 Test Item Value Reference Range Interpretation Comments Segs (test code = Segs) 86.2 45.0-75.0 H [facility] StationAgfmjzzWDUGBKKSZL8766-32-15 20:00:00 Test Item Value Reference Range Interpretation Comments Lymphocytes (test code = Lymphocytes) 11.7 20.0-40.0 L [facility] StationIudtbwvJBXFYQJDMM7893-20-85 20:00:00 Test Item Value Reference Range Interpretation Comments MPV (test code = MPV) 10.8 7.4-10.4 H [facility] StationHyasbvvRYJCZCXEON6004-49-74 20:00:00 Test Item Value Reference Range Interpretation Comments Platelet (test code = Platelet) 161 133-450 N [facility] StationJpetgefBETLSZKAKN5993-18-92 20:00:00 Test Item Value Reference Range Interpretation Comments MCHC (test code = MCHC) 35.6 32.0-36.0 N [facility] StationTvmphkmMPUBFILXXS4157-54-97 20:00:00 Test Item Value Reference Range Interpretation Comments RDW (test code = RDW) 12.4 11.5-14.5 N [facility] StationQmvmwksFZTFNZWZYE9435-90-96 20:00:00 Test Item Value Reference Range Interpretation Comments MCH (test code = MCH) 30.7 pg 27.0-31.0 N [facility] StationSckpukmCFCUHZUAKF8973-64-71 20:00:00 Test Item Value Reference Range Interpretation Comments MCV (test code = MCV) 86.1 81.0-99.0 N [facility] StationPqfojdxCEDYPWUBOR3776-21-44 20:00:00 Test Item Value Reference Range Interpretation Comments Hct (test code = Hct) 33.6 36.0-48.0 L [facility] StationZtqcarvGYFPXMMBGA5763-09-94 20:00:00 Test Item Value Reference Range Interpretation Comments Hgb (test code = Hgb) 12.0 12.0-16.0 N [facility] StationBhhlfxbTEJMYOJAGD2183-54-10 20:00:00 Test Item Value Reference Range Interpretation Comments RBC (test code = RBC) 3.90 4.20-5.40 L [facility] StationKmwzhlhYEMTOYOHZP3016-45-61 20:00:00 Test Item Value Reference Range Interpretation Comments WBC (test code = WBC) 6.6 3.7-10.4 N [facility] HospitalEsrdmuqLEVVPMQHJ4789-74-02 20:00:00 Test Item Value Reference Range Interpretation Comments Lactic Acid Lvl (test code = Lactic 1.6 0.5-2.2 N Acid Lvl) [facility] HospitalWxxcpphXXHDUREYD5498-57-71 20:00:00 Test Item Value Reference Range Interpretation Comments Lipase Lvl (test code = Lipase Lvl) 125 73-393 N [facility] HospitalMdanvgnVXJFQPYCR8258-38-35 20:00:00 Test Item Value Reference Range Interpretation Comments Albumin Lvl (test code = Albumin Lvl) 4.2 3.5-5.0 N [facility] HospitalBwvujlpQYAVVPRIE1824-64-04 20:00:00 Test Item Value Reference Range Interpretation Comments CO2 (test code = CO2) 23 24-32 L [facility] HospitalJgrvkvpVHUJXDPKD5431-06-94 20:00:00 Test Item Value Reference Range Interpretation Comments Chloride Lvl (test code = Chloride Lvl) 98 95-109 N [facility] HospitalKorfuevUILUUEBWF0438-17-68 20:00:00 Test Item Value Reference Range Interpretation Comments Potassium Lvl (test code = Potassium 3.8 3.5-5.1 N Lvl) [facility] HospitalXjzqtnzZQLNJPOSD6978-51-00 20:00:00 Test Item Value Reference Range Interpretation Comments Sodium Lvl (test code = Sodium Lvl) 138 135-145 N [facility] HospitalIrhwlmtUVXPUOGSB6470-97-89 20:00:00 Test Item Value Reference Range Interpretation Comments Creatinine Lvl (test code = Creatinine 0.7 0.5-1.4 N Lvl) [facility] HospitalXbujfkiMWAMVKQLX9217-48-36 20:00:00 Test Item Value Reference Range Interpretation Comments BUN (test code = BUN) 9 7-22 N [facility] HospitalYdqkyefQAWJQGTPP6954-18-08 20:00:00 Test Item Value Reference Range Interpretation Comments Glucose Lvl (test code = Glucose Lvl) 269 70-99 H [facility] HospitalJtffasqDBKBIPQPS2730-12-36 20:00:00 Test Item Value Reference Range Interpretation Comments B/C Ratio (test code = B/C Ratio) 13 6-25 N [facility] HospitalRcviunaXBGKLCVML2372-03-30 20:00:00 Test Item Value Reference Range Interpretation Comments AGAP (test code = AGAP) 20.8 10.0-20.0 H [facility] HospitalRvhehesOEXSTLJVS7565-09-50 20:00:00 Test Item Value Reference Range Interpretation Comments Calcium Lvl (test code = Calcium Lvl) 9.3 8.5-10.5 N [facility] HospitalAiguhzdIIZPLXEZP3237-46-58 20:00:00 Test Item Value Reference Range Interpretation Comments Total Protein (test code = Total 6.7 6.4-8.4 N Protein) [facility] HospitalGvuylpuBJWUDXEPK8162-79-34 20:00:00 Test Item Value Reference Range Interpretation Comments A/G Ratio (test code = A/G Ratio) 1.7 0.7-1.6 H [facility] HospitalAvwyfaqKWVBYQTUO0964-43-89 20:00:00 Test Item Value Reference Range Interpretation Comments Globulin (test code = Globulin) 2.5 2.0-4.0 N [facility] HospitalPwjjozlFQGNIBRMJ8046-81-21 20:00:00 Test Item Value Reference Range Interpretation Comments AST (test code = AST) 18 See_Comment N [Auto mated message] The system which ge nerated this result transmit rohit reference range : <=37. The reference range was not used to interpr et this result as reji l/abnormal. [facility] HospitalGevttfjZQOKXTUQT5759-51-68 20:00:00 Test Item Value Reference Range Interpretation Comments Alk Phos (test code = Alk Phos) 62 39-136 N [facility] HospitalIrfwowlNRTLWGKCG6301-98-56 20:00:00 Test Item Value Reference Range Interpretation Comments ALT (test code = ALT) 32 See_Comment N [Auto mated message] The system which ge nerated this result transmit rohit reference range : <=65. The reference range was not used to interpr et this result as reji l/abnormal. [facility] HospitalUrroxiiTUBIUYIVR5009-13-63 20:00:00 Test Item Value Reference Range Interpretation Comments Bili Total (test code = Bili Total) 0.7 0.2-1.3 N [facility] StationIcvjkucLSXBCVTEEY7105-04-19 20:00:00 Test Item Value Reference Range Interpretation Comments Anisocyte (test code = 1+ *ABN*(11/28/2011 A Anisocyte) 15:00:00) [facility] StationGuildpkZGLKPLCCOL5645-01-79 20:00:00 Test Item Value Reference Range Interpretation Comments Monocytes # (test code 0.1 See_Comment N [Aut omated message] The = Monocytes #) system which generated this result tra nsmitted reference range : <=0.8. The reference r leo was not used to int erpret this result as normal/abnormal . [facility] StationKoikzyoKABAFWVRKJ4505-01-52 20:00:00 Test Item Value Reference Range Interpretation Comments Eosinophils # (test code 0.0 See_Comment N [A utomated message] The = Eosinophils #) system whic h generated this result tra nsmitted reference range : <=0.5. The reference r leo was not used to int erpret this result as normal/abnormal . [facility] StationXwayjizERONOVVJNY5646-41-06 20:00:00 Test Item Value Reference Range Interpretation Comments Basophils # (test code 0.0 See_Comment N [Aut omated message] The = Basophils #) system which generated this result tra nsmitted reference range : <=0.2. The reference r leo was not used to int erpret this result as normal/abnormal . [facility] StationWqstimdJULCBVZYDR9271-17-98 20:00:00 Test Item Value Reference Range Interpretation Comments Neut Vac (test code = Slight *ABN*(11/28/2011 A Neut Vac) 15:00:00) [facility] StationVdkdaexYQRUWPRWTX9935-84-39 20:00:00 Test Item Value Reference Range Interpretation Comments Large Plt (test code = Slight *ABN*(11/28/2011 A Large Plt) 15:00:00) [facility] StationKjbtuuzGDDZQTUKRA0444-91-53 20:00:00 Test Item Value Reference Range Interpretation Comments Segs-Bands # (test code = Segs-Bands #) 5.7 1.5-8.1 N [facility] StationVcsqlfwIIDJGERYLB9182-29-53 20:00:00 Test Item Value Reference Range Interpretation Comments Lymphocytes # (test code = Lymphocytes 0.8 1.0-5.5 L #) [facility] StationDnkbnbmPANEKLRYBG3202-77-93 20:00:00 Test Item Value Reference Range Interpretation Comments Eosinophils (test code = 0.2 See_Comment N [A utomated message] The Eosinophils) system which ge nerated this result tra nsmitted reference range : <=4.0. The reference r leo was not used to int erpret this result as normal/abnormal . [facility] StationOrmxpzyQFRHJNVEUU8900-31-54 20:00:00 Test Item Value Reference Range Interpretation Comments Basophils (test code = 0.0 See_Comment N [Aut omated message] The Basophils) system which ge nerated this result tra nsmitted reference range : <=1.0. The reference r leo was not used to int erpret this result as normal/abnormal . [facility] StationEoshrtuUGNXHNUFXC9201-98-75 20:00:00 Test Item Value Reference Range Interpretation Comments Monocytes (test code = Monocytes) 1.9 2.0-12.0 L [facility] StationAuxzzehKSUVDVQADU6164-27-69 20:00:00 Test Item Value Reference Range Interpretation Comments Segs (test code = Segs) 86.2 45.0-75.0 H [facility] StationZsyruieVJUXVLKJZY3777-44-82 20:00:00 Test Item Value Reference Range Interpretation Comments Lymphocytes (test code = Lymphocytes) 11.7 20.0-40.0 L [facility] StationKpoqkikHEEUIXAGOP0013-02-55 20:00:00 Test Item Value Reference Range Interpretation Comments MPV (test code = MPV) 10.8 7.4-10.4 H [facility] StationCladtepLRBQWPNZDA4858-26-36 20:00:00 Test Item Value Reference Range Interpretation Comments Platelet (test code = Platelet) 161 133-450 N [facility] StationCiqjfvjXXFXMRCCOY7698-52-09 20:00:00 Test Item Value Reference Range Interpretation Comments MCHC (test code = MCHC) 35.6 32.0-36.0 N [facility] StationLnezaxfTNLJADOSXB8497-12-28 20:00:00 Test Item Value Reference Range Interpretation Comments RDW (test code = RDW) 12.4 11.5-14.5 N [facility] StationRjarlkzRGSMZWKFRP9642-67-57 20:00:00 Test Item Value Reference Range Interpretation Comments MCH (test code = MCH) 30.7 pg 27.0-31.0 N [facility] StationTaoaptvDNPMMPCQGG0907-54-22 20:00:00 Test Item Value Reference Range Interpretation Comments MCV (test code = MCV) 86.1 81.0-99.0 N [facility] StationUjzzxgmKWDUXSIFMY4923-89-82 20:00:00 Test Item Value Reference Range Interpretation Comments Hct (test code = Hct) 33.6 36.0-48.0 L [facility] StationCateejmFHSFKKWWEO4628-93-13 20:00:00 Test Item Value Reference Range Interpretation Comments Hgb (test code = Hgb) 12.0 12.0-16.0 N [facility] StationAyegplwAKQNRJGFXW3844-48-45 20:00:00 Test Item Value Reference Range Interpretation Comments RBC (test code = RBC) 3.90 4.20-5.40 L [facility] StationZopvsyvWAPGPPTUYI4141-18-52 20:00:00 Test Item Value Reference Range Interpretation Comments WBC (test code = WBC) 6.6 3.7-10.4 N [facility] HospitalOogjdvrHWRWJDIGJ8433-02-60 19:51:00 Test Item Value Reference Range Interpretation Comments UDS Note (test code = See Note UDS Note) 5*NA*(11/28/2011 14:51:00) [facility] HospitalPljmbosXRUUVDTHL5503-54-84 19:51:00 Test Item Value Reference Range Interpretation Comments U Phencyc Scr (test Negative code = U Phencyc Scr) *NA*(11/28/2011 14:51:00) [facility] HospitalVtedmuhSYUDMYWJX3189-53-26 19:51:00 Test Item Value Reference Range Interpretation Comments U Kelly Scr (test code Negative *NA*(11/28/2011 = U Kelly Scr) 14:51:00) [facility] HospitalFksmdqkQIPYSBNWV7119-04-21 19:51:00 Test Item Value Reference Range Interpretation Comments U Amph Scr (test code Negative *NA*(11/28/2011 = U Amph Scr) 14:51:00) [facility]ZmffmfeLIWHRXYCS2642-52-72 19:51:00 Test Item Value Reference Range Interpretation Comments U Opiate Scr (test Negative code = U Opiate Scr) *NA*(11/28/2011 14:51:00) [facility] HospitalVmepkhkTRSYOEXOC7864-17-42 19:51:00 Test Item Value Reference Range Interpretation Comments U Cocaine Scr (test Negative code = U Cocaine Scr) *NA*(11/28/2011 14:51:00) [facility] HospitalZqugmdcZNMNOBABD7026-40-78 19:51:00 Test Item Value Reference Range Interpretation Comments U Cannab Scr (test Negative code = U Cannab Scr) *NA*(11/28/2011 14:51:00) [facility] HospitalVpydtyyEPDXFMTEY2730-69-97 19:51:00 Test Item Value Reference Range Interpretation Comments U Benzodia Scr (test Negative code = U Benzodia Scr) *NA*(11/28/2011 14:51:00) [facility] HospitalAijrlndQZJVORTSU3795-45-59 19:51:00 Test Item Value Reference Range Interpretation Comments UDS Note (test code = See Note UDS Note) 5*NA*(11/28/2011 14:51:00) [facility] HospitalFyhjvixQTDPTLCAN7354-83-98 19:51:00 Test Item Value Reference Range Interpretation Comments U Phencyc Scr (test Negative code = U Phencyc Scr) *NA*(11/28/2011 14:51:00) [facility] HospitalMdegrpiTQKTKWZTK5681-11-19 19:51:00 Test Item Value Reference Range Interpretation Comments U Kelly Scr (test code Negative *NA*(11/28/2011 = U Kelly Scr) 14:51:00) [facility] HospitalQmmwmexLKELSOJGC5603-97-97 19:51:00 Test Item Value Reference Range Interpretation Comments U Amph Scr (test code Negative *NA*(11/28/2011 = U Amph Scr) 14:51:00) [facility] HospitalEekhyjyIBDVWOTTJ7960-59-31 19:51:00 Test Item Value Reference Range Interpretation Comments U Opiate Scr (test Negative code = U Opiate Scr) *NA*(11/28/2011 14:51:00) [facility] HospitalSvfigurFBTDQJHSJ2506-06-31 19:51:00 Test Item Value Reference Range Interpretation Comments U Cocaine Scr (test Negative code = U Cocaine Scr) *NA*(11/28/2011 14:51:00) [facility] HospitalJylgkfcMXGDISFPY0720-27-15 19:51:00 Test Item Value Reference Range Interpretation Comments U Cannab Scr (test Negative code = U Cannab Scr) *NA*(11/28/2011 14:51:00) [facility] HospitalFigctbvBDCRDTHLZ7110-99-47 19:51:00 Test Item Value Reference Range Interpretation Comments U Benzodia Scr (test Negative code = U Benzodia Scr) *NA*(11/28/2011 14:51:00) [facility]WjhntccYPDZGICBE1076-72-75 19:51:00 Test Item Value Reference Range Interpretation Comments UDS Note (test code = See Note UDS Note) 5*NA*(11/28/2011 14:51:00) [facility] HospitalJiskzgbFPLCTYJTM7740-52-69 19:51:00 Test Item Value Reference Range Interpretation Comments U Phencyc Scr (test Negative code = U Phencyc Scr) *NA*(11/28/2011 14:51:00) [facility] HospitalEtgzgqgBGISTCENO6786-88-38 19:51:00 Test Item Value Reference Range Interpretation Comments U Kelly Scr (test code Negative *NA*(11/28/2011 = U Kelly Scr) 14:51:00) [facility] HospitalGkxwlaeJXIFZXLYX2135-66-35 19:51:00 Test Item Value Reference Range Interpretation Comments U Amph Scr (test code Negative *NA*(11/28/2011 = U Amph Scr) 14:51:00) [facility] HospitalYynmybvGKIHQAKIO9075-55-38 19:51:00 Test Item Value Reference Range Interpretation Comments U Opiate Scr (test Negative code = U Opiate Scr) *NA*(11/28/2011 14:51:00) [facility] HospitalWfiourdTGKUEBPZB3711-90-45 19:51:00 Test Item Value Reference Range Interpretation Comments U Cocaine Scr (test Negative code = U Cocaine Scr) *NA*(11/28/2011 14:51:00) [facility] HospitalAkpbzjyMDQEOJJCB1348-67-25 19:51:00 Test Item Value Reference Range Interpretation Comments U Cannab Scr (test Negative code = U Cannab Scr) *NA*(11/28/2011 14:51:00) [facility] HospitalEjudpkuJQNMWWKOJ4307-03-50 19:51:00 Test Item Value Reference Range Interpretation Comments U Benzodia Scr (test Negative code = U Benzodia Scr) *NA*(11/28/2011 14:51:00) [facility] HospitalUgycbghZYVXNWIPR0749-17-74 19:51:00 Test Item Value Reference Range Interpretation Comments UDS Note (test code = See Note UDS Note) 5*NA*(11/28/2011 14:51:00) [facility] HospitalBcunmjkHRLYKUUKF3763-11-87 19:51:00 Test Item Value Reference Range Interpretation Comments U Phencyc Scr (test Negative code = U Phencyc Scr) *NA*(11/28/2011 14:51:00) [facility] HospitalOqufnzoHCQUPWBQY6076-51-62 19:51:00 Test Item Value Reference Range Interpretation Comments U Kelly Scr (test code Negative *NA*(11/28/2011 = U Kelly Scr) 14:51:00) [facility] HospitalEwfoxfxGXMGVJLFD7816-12-13 19:51:00 Test Item Value Reference Range Interpretation Comments U Amph Scr (test code Negative *NA*(11/28/2011 = U Amph Scr) 14:51:00) [facility] HospitalDzrqcvbLIPPEJYUW8536-11-48 19:51:00 Test Item Value Reference Range Interpretation Comments U Opiate Scr (test Negative code = U Opiate Scr) *NA*(11/28/2011 14:51:00) [facility] HospitalLujrybbXRWJUVIXZ5186-23-89 19:51:00 Test Item Value Reference Range Interpretation Comments U Cocaine Scr (test Negative code = U Cocaine Scr) *NA*(11/28/2011 14:51:00) [facility] HospitalXbpkonrMAXNGOERD4884-16-78 19:51:00 Test Item Value Reference Range Interpretation Comments U Cannab Scr (test Negative code = U Cannab Scr) *NA*(11/28/2011 14:51:00) [facility] HospitalZnzdnkqQJSKPZCFH2980-51-22 19:51:00 Test Item Value Reference Range Interpretation Comments U Benzodia Scr (test Negative code = U Benzodia Scr) *NA*(11/28/2011 14:51:00) [facility] HospitalUjxocdhUQNXKRKOW7825-32-07 19:51:00 Test Item Value Reference Range Interpretation Comments UDS Note (test code = See Note UDS Note) 5*NA*(11/28/2011 14:51:00) [facility] HospitalDfuchkpVRNKLWNJS6117-69-52 19:51:00 Test Item Value Reference Range Interpretation Comments U Phencyc Scr (test Negative code = U Phencyc Scr) *NA*(11/28/2011 14:51:00) [facility] HospitalHdwapzrBHIYHWLTY9835-01-58 19:51:00 Test Item Value Reference Range Interpretation Comments U Kelly Scr (test code Negative *NA*(11/28/2011 = U Kelly Scr) 14:51:00) [facility] HospitalQikxtanRNAQKKXUW1162-99-82 19:51:00 Test Item Value Reference Range Interpretation Comments U Amph Scr (test code Negative *NA*(11/28/2011 = U Amph Scr) 14:51:00) [facility] HospitalIoglqsxSKCUVSGPG1865-39-18 19:51:00 Test Item Value Reference Range Interpretation Comments U Opiate Scr (test Negative code = U Opiate Scr) *NA*(11/28/2011 14:51:00) [facility] HospitalLkyihlcMZWSSQWDU5123-43-23 19:51:00 Test Item Value Reference Range Interpretation Comments U Cocaine Scr (test Negative code = U Cocaine Scr) *NA*(11/28/2011 14:51:00) [facility] HospitalYlfttflJDTEIDDPG9625-39-70 19:51:00 Test Item Value Reference Range Interpretation Comments U Cannab Scr (test Negative code = U Cannab Scr) *NA*(11/28/2011 14:51:00) [facility] HospitalOsmlbrpWYVLFESBM6893-88-25 19:51:00 Test Item Value Reference Range Interpretation Comments U Benzodia Scr (test Negative code = U Benzodia Scr) *NA*(11/28/2011 14:51:00) [facility] GLUCOSE QRKOCPB7629-69-94 16:20:00 Test Item Value Reference Range Interpretation Comments Comment1 (test code = Comment1) Notify TABATHA/ [facility] GLUCOSE [id number] 16:20:00 Test Item Value Reference Range Interpretation Comments Gluc POC Lifscn (test code = Gluc POC 328 70-99 H Lifscn) [facility] GLUCOSE [id number] 16:20:00 Test Item Value Reference Range Interpretation Comments Comment1 (test code = Comment1) Notify TABATHA/ [facility] GLUCOSE [id number] 16:20:00 Test Item Value Reference Range Interpretation Comments Gluc POC Lifscn (test code = Gluc POC 328 70-99 H Lifscn) [facility] GLUCOSE [id number] 16:20:00 Test Item Value Reference Range Interpretation Comments Comment1 (test code = Comment1) Notify RN/ [facility] GLUCOSE [id number] 16:20:00 Test Item Value Reference Range Interpretation Comments Gluc POC Lifscn (test code = Gluc POC 328 70-99 H Lifscn) [facility] GLUCOSE [id number] 16:20:00 Test Item Value Reference Range Interpretation Comments Comment1 (test code = Comment1) Notify RN/ [facility] GLUCOSE [id number] 16:20:00 Test Item Value Reference Range Interpretation Comments Gluc POC Lifscn (test code = Gluc POC 328 70-99 H Lifscn) [facility] GLUCOSE [id number] 16:20:00 Test Item Value Reference Range Interpretation Comments Comment1 (test code = Comment1) Notify RN/ [facility] GLUCOSE [id number] 16:20:00 Test Item Value Reference Range Interpretation Comments Gluc POC Lifscn (test code = Gluc POC 328 70-99 H Lifscn) [id number] 15:30:00 Test Item Value Reference Range Interpretation Comments U Preg (test code = U Negative (09/18/2011 N Preg) 10:30:00) [facility]KfdrbvmJWRCFYJTBC2263-59-84 15:30:00 Test Item Value Reference Range Interpretation Comments UA WBC (test code = UA None Seen (09/18/2011 N WBC) 10:30:00) [facility]landUrayvvfIRQTFAWDTX2252-20-47 15:30:00 Test Item Value Reference Range Interpretation Comments UA RBC (test None Seen See_Comment N [Automated mes pastor] code = UA RBC) (09/18/2011 The system ich 10:30:00) generated this result transmitted ref erence range: <=2. The reference range was not used to int erpret this result as normal/abnormal . [facility]la[id number] 15:30:00 Test Item Value Reference Range Interpretation Comments UA Bacteria (test code = None Seen (09/18/2011 N UA Bacteria) 10:30:00) [facility]KstmrydITBLDIKSBA5778-79-87 15:30:00 Test Item Value Reference Range Interpretation Comments UA Amorph Destiny (test Few /HPF A code = UA Amorph Destiny) *ABN*(09/18/2011 10:30:00) [facility] AreaKrmltadRBTGJMAREY3286-89-25 15:30:00 Test Item Value Reference Range Interpretation Comments Micro? (test code = Performed (09/18/2011 N Micro?) 10:30:00) [facility] AreaOtytujqHYPZEAMKGR2697-61-42 15:30:00 Test Item Value Reference Range Interpretation Comments UA Sq Epi (test code = Rare /LPF (09/18/2011 N UA Sq Epi) 10:30:00) [facility] AreaGhssyhsPYHZGQCIPD9728-31-70 15:30:00 Test Item Value Reference Range Interpretation Comments UA Ketones (test code = 15 mg/dL A UA Ketones) *ABN*(09/18/2011 10:30:00) [facility] AreaRdnofmtUTOYTLMNQO4603-14-51 15:30:00 Test Item Value Reference Range Interpretation Comments UA Glucose (test code = >=1000 mg/dL A UA Glucose) *ABN*(09/18/2011 10:30:00) [facility] AreaYjggdwyQTIRYYAYGT5143-87-80 15:30:00 Test Item Value Reference Range Interpretation Comments UA Protein (test code = Trace A UA Protein) *ABN*(09/18/2011 10:30:00) [facility] AreaRwmkjfaXKISGGLOUR1518-20-53 15:30:00 Test Item Value Reference Range Interpretation Comments UA Urobilinogen (test code = UA 0.2 0.1-1.0 N Urobilinogen) [facility] AreaBtlriicECELWQXBIX1338-82-98 15:30:00 Test Item Value Reference Range Interpretation Comments UA Blood (test code = Negative (09/18/2011 N UA Blood) 10:30:00) [facility] AreaFphwgbwZOOBOWVVUL5551-21-75 15:30:00 Test Item Value Reference Range Interpretation Comments UA Bili (test code = Negative *NA*(09/18/2011 UA Bili) 10:30:00) [facility] AreaLpskrqtRJTQRVGMHO7924-85-42 15:30:00 Test Item Value Reference Range Interpretation Comments UA Leuk Est (test Negative (09/18/2011 N code = UA Leuk Est) 10:30:00) [facility]landYemabntXGQDPUTGSS8906-57-18 15:30:00 Test Item Value Reference Range Interpretation Comments UA Nitrite (test code Negative (09/18/2011 N = UA Nitrite) 10:30:00) [facility]burgQraevenRXVMUDTDXF0102-49-31 15:30:00 Test Item Value Reference Range Interpretation Comments UA pH (test code = UA pH) 7.5 1 5.0-8.0 N [facility]la[id number] 15:30:00 Test Item Value Reference Range Interpretation Comments UA Spec Grav (test code = UA Spec 1.010 1 N Grav) [facility] Hospit[id number] 15:30:00 Test Item Value Reference Range Interpretation Comments UA Turbidity (test code Slight Cloudy N = UA Turbidity) (09/18/2011 10:30:00) [facility] HospitalRufosvxBIHUHZPONE9215-73-78 15:30:00 Test Item Value Reference Range Interpretation Comments UA Color (test code = Yellow *NA*(09/18/2011 UA Color) 10:30:00) [facility]burgOssmlrdXRZSLURNO0003-25-26 15:30:00 Test Item Value Reference Range Interpretation Comments U Preg (test code = U Negative (09/18/2011 N Preg) 10:30:00) [facility]burgTkhrszqTEJUTQDCPU9289-82-21 15:30:00 Test Item Value Reference Range Interpretation Comments UA WBC (test code = UA None Seen (09/18/2011 N WBC) 10:30:00) [facility]burgQqhjjuyRWKLVPSCEW6134-69-45 15:30:00 Test Item Value Reference Range Interpretation Comments UA RBC (test None Seen See_Comment N [Automated mes pastor] code = UA RBC) (09/18/2011 The system ich 10:30:00) generated this result transmitted ref erence range: <=2. The reference range was not used to int erpret this result as normal/abnormal . [facility]burgTwsvjfaDHKVNRVOKU2384-40-57 15:30:00 Test Item Value Reference Range Interpretation Comments UA Bacteria (test code = None Seen (09/18/2011 N UA Bacteria) 10:30:00) [facility] Ar[id number] 15:30:00 Test Item Value Reference Range Interpretation Comments UA Amorph Destiny (test Few /HPF A code = UA Amorph Destiny) *ABN*(09/18/2011 10:30:00) [facility] AreaNryuetzSAPIOJGISB0578-15-68 15:30:00 Test Item Value Reference Range Interpretation Comments Micro? (test code = Performed (09/18/2011 N Micro?) 10:30:00) [facility] Ar[id number] 15:30:00 Test Item Value Reference Range Interpretation Comments UA Sq Epi (test code = Rare /LPF (09/18/2011 N UA Sq Epi) 10:30:00) [facility] AreaCyocdcdBWLGBQTJJR9228-73-64 15:30:00 Test Item Value Reference Range Interpretation Comments UA Ketones (test code = 15 mg/dL A UA Ketones) *ABN*(09/18/2011 10:30:00) [facility] AreaKrufcjdIMCXDEPGTW4826-26-03 15:30:00 Test Item Value Reference Range Interpretation Comments UA Glucose (test code = >=1000 mg/dL A UA Glucose) *ABN*(09/18/2011 10:30:00) [facility] AreaTvflyyfIDOURNZYEO0923-79-99 15:30:00 Test Item Value Reference Range Interpretation Comments UA Protein (test code = Trace A UA Protein) *ABN*(09/18/2011 10:30:00) [facility] AreaOjjpkkePXJNZIOMAI9271-19-22 15:30:00 Test Item Value Reference Range Interpretation Comments UA Urobilinogen (test code = UA 0.2 0.1-1.0 N Urobilinogen) [facility] AreaIokeiesMXEHADEFGD9226-04-56 15:30:00 Test Item Value Reference Range Interpretation Comments UA Blood (test code = Negative (09/18/2011 N UA Blood) 10:30:00) [facility] AreaDxbmvuyHXZDDAFPJJ4929-70-47 15:30:00 Test Item Value Reference Range Interpretation Comments UA Bili (test code = Negative *NA*(09/18/2011 UA Bili) 10:30:00) [facility] AreaRaocbdwJYVETYRFIB4137-63-89 15:30:00 Test Item Value Reference Range Interpretation Comments UA Leuk Est (test Negative (09/18/2011 N code = UA Leuk Est) 10:30:00) [facility]la[id number] 15:30:00 Test Item Value Reference Range Interpretation Comments UA Nitrite (test code Negative (09/18/2011 N = UA Nitrite) 10:30:00) [facility]burgAkcczshDWYYBGICNK9476-14-28 15:30:00 Test Item Value Reference Range Interpretation Comments UA pH (test code = UA pH) 7.5 1 5.0-8.0 N [facility]landXtljmkiCTWPWLUFVM7835-08-60 15:30:00 Test Item Value Reference Range Interpretation Comments UA Spec Grav (test code = UA Spec 1.010 1 N Grav) [facility]burgLpzysfqQIPASTHDKL7592-79-63 15:30:00 Test Item Value Reference Range Interpretation Comments UA Turbidity (test code Slight Cloudy N = UA Turbidity) (09/18/2011 10:30:00) [facility] HospitalRemqdnsJXJUZBCGWC7784-73-70 15:30:00 Test Item Value Reference Range Interpretation Comments UA Color (test code = Yellow *NA*(09/18/2011 UA Color) 10:30:00) [facility]burgTdtzsvuMCYKWWTIW7605-11-13 15:30:00 Test Item Value Reference Range Interpretation Comments U Preg (test code = U Negative (09/18/2011 N Preg) 10:30:00) [facility]burgZyxpzwiWONVJPOTHN1201-64-24 15:30:00 Test Item Value Reference Range Interpretation Comments UA WBC (test code = UA None Seen (09/18/2011 N WBC) 10:30:00) [facility]burgJhwhvqrENCPSJUNTL4080-86-94 15:30:00 Test Item Value Reference Range Interpretation Comments UA RBC (test None Seen See_Comment N [Automated mes pastor] code = UA RBC) (09/18/2011 The system wh ich 10:30:00) generated this result transmitted ref erence range: <=2. The reference range was not used to int erpret this result as normal/abnormal . [facility]burgMpwybzaTGJTRELDAW2760-09-91 15:30:00 Test Item Value Reference Range Interpretation Comments UA Bacteria (test code = None Seen (09/18/2011 N UA Bacteria) 10:30:00) [facility]landUivjozvKKRUYTXGGW1858-14-60 15:30:00 Test Item Value Reference Range Interpretation Comments UA Amorph Destiny (test Few /HPF A code = UA Amorph Destiny) *ABN*(09/18/2011 10:30:00) [facility] HospitalAwtvrxrJIFTPIZXDK5659-19-31 15:30:00 Test Item Value Reference Range Interpretation Comments Micro? (test code = Performed (09/18/2011 N Micro?) 10:30:00) [facility] AreaZjajkiqNVFNISUVIJ3225-26-55 15:30:00 Test Item Value Reference Range Interpretation Comments UA Sq Epi (test code = Rare /LPF (09/18/2011 N UA Sq Epi) 10:30:00) [facility] AreaMbznycsFACENQCXGT8738-17-70 15:30:00 Test Item Value Reference Range Interpretation Comments UA Ketones (test code = 15 mg/dL A UA Ketones) *ABN*(09/18/2011 10:30:00) [facility] AreaUlqxumcIBWJWKGESR0076-29-06 15:30:00 Test Item Value Reference Range Interpretation Comments UA Glucose (test code = >=1000 mg/dL A UA Glucose) *ABN*(09/18/2011 10:30:00) [facility] AreaWektcrcVQFVOQSODL4576-06-60 15:30:00 Test Item Value Reference Range Interpretation Comments UA Protein (test code = Trace A UA Protein) *ABN*(09/18/2011 10:30:00) [facility] AreaRrrbgcfBRVAZNUODC8760-83-59 15:30:00 Test Item Value Reference Range Interpretation Comments UA Urobilinogen (test code = UA 0.2 0.1-1.0 N Urobilinogen) [facility] AreaPxrwghgUACSHGOFPZ0945-39-33 15:30:00 Test Item Value Reference Range Interpretation Comments UA Blood (test code = Negative (09/18/2011 N UA Blood) 10:30:00) [facility] AreaFbyxyxrOUBEECWAUC5967-17-13 15:30:00 Test Item Value Reference Range Interpretation Comments UA Bili (test code = Negative *NA*(09/18/2011 UA Bili) 10:30:00) [facility] AreaCkkhhkdUNASRINQRP2023-51-56 15:30:00 Test Item Value Reference Range Interpretation Comments UA Leuk Est (test Negative (09/18/2011 N code = UA Leuk Est) 10:30:00) [facility] AreaUcwyhfzBBESUTQXTD0741-10-33 15:30:00 Test Item Value Reference Range Interpretation Comments UA Nitrite (test code Negative (09/18/2011 N = UA Nitrite) 10:30:00) [facility]burgLonfcpyCCPPEVGJEJ6531-73-83 15:30:00 Test Item Value Reference Range Interpretation Comments UA pH (test code = UA pH) 7.5 1 5.0-8.0 N [facility] HospitalWkcpjybNYBDCXGMLW8582-67-68 15:30:00 Test Item Value Reference Range Interpretation Comments UA Spec Grav (test code = UA Spec 1.010 1 N Grav) [facility]burgSaznjtiYGCQKZRVTP6618-62-68 15:30:00 Test Item Value Reference Range Interpretation Comments UA Turbidity (test code Slight Cloudy N = UA Turbidity) (09/18/2011 10:30:00) [facility]burgQksymzsDWZTENFUMO1371-00-15 15:30:00 Test Item Value Reference Range Interpretation Comments UA Color (test code = Yellow *NA*(09/18/2011 UA Color) 10:30:00) [facility]burgSrznoggWXTBJOOZZ4551-49-57 15:30:00 Test Item Value Reference Range Interpretation Comments U Preg (test code = U Negative (09/18/2011 N Preg) 10:30:00) [facility]burgYzksgizYKJQWRLLPU5166-41-88 15:30:00 Test Item Value Reference Range Interpretation Comments UA WBC (test code = UA None Seen (09/18/2011 N WBC) 10:30:00) [facility]burgKsqyhfxRVDLRUKAFO8882-53-82 15:30:00 Test Item Value Reference Range Interpretation Comments UA RBC (test None Seen See_Comment N [Automated mes pastor] code = UA RBC) (09/18/2011 The system ich 10:30:00) generated this result transmitted ref erence range: <=2. The reference range was not used to int erpret this result as normal/abnormal . [facility]burgUlnnvlwDREAGNFEDC8073-17-69 15:30:00 Test Item Value Reference Range Interpretation Comments UA Bacteria (test code = None Seen (09/18/2011 N UA Bacteria) 10:30:00) [facility]burgRcrrcjnINDVSLEPOQ5196-01-63 15:30:00 Test Item Value Reference Range Interpretation Comments UA Amorph Destiny (test Few /HPF A code = UA Amorph Destiny) *ABN*(09/18/2011 10:30:00) [facility] AreaPvxjhzkENTHXMTTUP9852-87-57 15:30:00 Test Item Value Reference Range Interpretation Comments Micro? (test code = Performed (09/18/2011 N Micro?) 10:30:00) [facility] AreaScueguhZCSRIHVXGG8223-67-87 15:30:00 Test Item Value Reference Range Interpretation Comments UA Sq Epi (test code = Rare /LPF (09/18/2011 N UA Sq Epi) 10:30:00) [facility] AreaQrvwuplWOIYQYWRZX7170-97-94 15:30:00 Test Item Value Reference Range Interpretation Comments UA Ketones (test code = 15 mg/dL A UA Ketones) *ABN*(09/18/2011 10:30:00) [facility] AreaBjsezmuDQVPWFQYUJ3374-87-39 15:30:00 Test Item Value Reference Range Interpretation Comments UA Glucose (test code = >=1000 mg/dL A UA Glucose) *ABN*(09/18/2011 10:30:00) [facility] AreaBzyfsibZNVAIIHSNE8997-79-56 15:30:00 Test Item Value Reference Range Interpretation Comments UA Protein (test code = Trace A UA Protein) *ABN*(09/18/2011 10:30:00) [facility] AreaHcnkphqMFPJLVHTFF6241-95-35 15:30:00 Test Item Value Reference Range Interpretation Comments UA Urobilinogen (test code = UA 0.2 0.1-1.0 N Urobilinogen) [facility] AreaGznmpvlRJZGFREFED2234-15-33 15:30:00 Test Item Value Reference Range Interpretation Comments UA Blood (test code = Negative (09/18/2011 N UA Blood) 10:30:00) [facility] AreaYmtjkhpCWHPBKZMUK0301-98-60 15:30:00 Test Item Value Reference Range Interpretation Comments UA Bili (test code = Negative *NA*(09/18/2011 UA Bili) 10:30:00) [facility] AreaPrkqproTLAHCAPMXX0284-90-27 15:30:00 Test Item Value Reference Range Interpretation Comments UA Leuk Est (test Negative (09/18/2011 N code = UA Leuk Est) 10:30:00) [facility] AreaZuzhscjQMVZZINJWA6646-90-76 15:30:00 Test Item Value Reference Range Interpretation Comments UA Nitrite (test code Negative (09/18/2011 N = UA Nitrite) 10:30:00) [facility]landOelxicqVEJHNOYUDO2908-24-62 15:30:00 Test Item Value Reference Range Interpretation Comments UA pH (test code = UA pH) 7.5 1 5.0-8.0 N [facility]landHdkvsqfPGOZBPKQCM0646-05-97 15:30:00 Test Item Value Reference Range Interpretation Comments UA Spec Grav (test code = UA Spec 1.010 1 N Grav) [facility]landTvikkieKGOVJIAYDA9814-91-24 15:30:00 Test Item Value Reference Range Interpretation Comments UA Turbidity (test code Slight Cloudy N = UA Turbidity) (09/18/2011 10:30:00) [facility]landUhagbxvAWNCRFDNXY5343-40-56 15:30:00 Test Item Value Reference Range Interpretation Comments UA Color (test code = Yellow *NA*(09/18/2011 UA Color) 10:30:00) [facility]burgQhqufgyVJKQERLEX6046-26-05 15:30:00 Test Item Value Reference Range Interpretation Comments U Preg (test code = U Negative (09/18/2011 N Preg) 10:30:00) [facility]landLglkfzfVVQCHKGRKG2627-94-67 15:30:00 Test Item Value Reference Range Interpretation Comments UA WBC (test code = UA None Seen (09/18/2011 N WBC) 10:30:00) [facility]landGbwryxbKFVXONTLPJ5071-36-49 15:30:00 Test Item Value Reference Range Interpretation Comments UA RBC (test None Seen See_Comment N [Automated mes pastor] code = UA RBC) (09/18/2011 The system ich 10:30:00) generated this result transmitted ref erence range: <=2. The reference range was not used to int erpret this result as normal/abnormal . [facility]landQmggilxZNYYZYFLGZ2782-35-13 15:30:00 Test Item Value Reference Range Interpretation Comments UA Bacteria (test code = None Seen (09/18/2011 N UA Bacteria) 10:30:00) [facility]burgOyndcgeRORYQLSZFE2028-44-18 15:30:00 Test Item Value Reference Range Interpretation Comments UA Amorph Destiny (test Few /HPF A code = UA Amorph Destiny) *ABN*(09/18/2011 10:30:00) [facility]landKgmkwbqDIWGHJVFYJ5290-73-64 15:30:00 Test Item Value Reference Range Interpretation Comments Micro? (test code = Performed (09/18/2011 N Micro?) 10:30:00) [facility] HospitalVvokarpYOWDSLQTGZ5248-20-13 15:30:00 Test Item Value Reference Range Interpretation Comments UA Sq Epi (test code = Rare /LPF (09/18/2011 N UA Sq Epi) 10:30:00) [facility] AreaIfakwolRDQTDACIPZ2269-77-35 15:30:00 Test Item Value Reference Range Interpretation Comments UA Ketones (test code = 15 mg/dL A UA Ketones) *ABN*(09/18/2011 10:30:00) [facility] AreaYnvufzrQMNQFFPDYP6826-11-97 15:30:00 Test Item Value Reference Range Interpretation Comments UA Glucose (test code = >=1000 mg/dL A UA Glucose) *ABN*(09/18/2011 10:30:00) [facility] AreaBknfdwzIBRTEZXJXO9002-93-48 15:30:00 Test Item Value Reference Range Interpretation Comments UA Protein (test code = Trace A UA Protein) *ABN*(09/18/2011 10:30:00) [facility]QfsxcvaHYLCKEHEGJ1688-83-29 15:30:00 Test Item Value Reference Range Interpretation Comments UA Urobilinogen (test code = UA 0.2 0.1-1.0 N Urobilinogen) [facility] AreaVicxwxoVWWLSVOYZN1141-65-50 15:30:00 Test Item Value Reference Range Interpretation Comments UA Blood (test code = Negative (09/18/2011 N UA Blood) 10:30:00) [facility] AreaXmogeueTLWXAIGXUE1892-96-40 15:30:00 Test Item Value Reference Range Interpretation Comments UA Bili (test code = Negative *NA*(09/18/2011 UA Bili) 10:30:00) [facility] AreaJeugagrEIIPYRGLZU0521-00-49 15:30:00 Test Item Value Reference Range Interpretation Comments UA Leuk Est (test Negative (09/18/2011 N code = UA Leuk Est) 10:30:00) [facility] AreaMfshqbpERBVNSCYIZ1684-67-10 15:30:00 Test Item Value Reference Range Interpretation Comments UA Nitrite (test code Negative (09/18/2011 N = UA Nitrite) 10:30:00) [facility] AreaSslntumBFQRREFPEJ3854-38-87 15:30:00 Test Item Value Reference Range Interpretation Comments UA pH (test code = UA pH) 7.5 1 5.0-8.0 N [facility] AreaXknceecFKMWROJHMT8011-89-31 15:30:00 Test Item Value Reference Range Interpretation Comments UA Spec Grav (test code = UA Spec 1.010 1 N Grav) [facility] AreaIuuliceTJYVUNIKVN6626-02-02 15:30:00 Test Item Value Reference Range Interpretation Comments UA Turbidity (test code Slight Cloudy N = UA Turbidity) (09/18/2011 10:30:00) [facility] AreaKeyhpsyJQWYRBSXQZ0273-00-48 15:30:00 Test Item Value Reference Range Interpretation Comments UA Color (test code = Yellow *NA*(09/18/2011 UA Color) 10:30:00) [facility]ZqeqilfYTUAIBNUY8523-77-07 14:07:00 Test Item Value Reference Range Interpretation Comments Phosphorus (test code = Phosphorus) 4.4 2.5-4.5 N [facility] HospitalLozfbytGHNQNATMO4140-77-24 14:07:00 Test Item Value Reference Range Interpretation Comments Magnesium Lvl (test code = Magnesium 1.6 1.8-2.4 L Lvl) [facility] HospitalNhyohgiHPGITIWKQ7098-96-53 14:07:00 Test Item Value Reference Range Interpretation Comments Phosphorus (test code = Phosphorus) 4.4 2.5-4.5 N [facility] HospitalKfmjfwfZQKDTXITH2939-63-36 14:07:00 Test Item Value Reference Range Interpretation Comments Magnesium Lvl (test code = Magnesium 1.6 1.8-2.4 L Lvl) [facility] HospitalBwbydjrBONCDYEYD4571-69-50 14:07:00 Test Item Value Reference Range Interpretation Comments Phosphorus (test code = Phosphorus) 4.4 2.5-4.5 N [facility] HospitalWpransdFFDQSAPTT5517-94-48 14:07:00 Test Item Value Reference Range Interpretation Comments Magnesium Lvl (test code = Magnesium 1.6 1.8-2.4 L Lvl) [facility] HospitalHfsadkpOPQCMIODB5922-10-79 14:07:00 Test Item Value Reference Range Interpretation Comments Phosphorus (test code = Phosphorus) 4.4 2.5-4.5 N [facility] HospitalKkfhebcOIWPFQLHL7953-97-29 14:07:00 Test Item Value Reference Range Interpretation Comments Magnesium Lvl (test code = Magnesium 1.6 1.8-2.4 L Lvl) [facility] HospitalUdpvoklFSVBUSUMO9537-12-83 14:07:00 Test Item Value Reference Range Interpretation Comments Phosphorus (test code = Phosphorus) 4.4 2.5-4.5 N [facility] HospitalTlkikokJNHBJTLNT5751-42-53 14:07:00 Test Item Value Reference Range Interpretation Comments Magnesium Lvl (test code = Magnesium 1.6 1.8-2.4 L Lvl) [facility] GLUCOSE DIXDMOW8663-95-60 14:01:00 Test Item Value Reference Range Interpretation Comments Gluc POC Lifscn (test code = Gluc POC no gt 70-99 A Lifscn) [facility] GLUCOSE FLYOCOS4492-70-83 14:01:00 Test Item Value Reference Range Interpretation Comments Gluc POC Lifscn (test code = Gluc POC no gt 70-99 A Lifscn) [facility] GLUCOSE JPSXLML4891-97-80 14:01:00 Test Item Value Reference Range Interpretation Comments Gluc POC Lifscn (test code = Gluc POC no gt 70-99 A Lifscn) [facility] GLUCOSE IISBHMD1190-22-78 14:01:00 Test Item Value Reference Range Interpretation Comments Gluc POC Lifscn (test code = Gluc POC no gt 70-99 A Lifscn) [facility] GLUCOSE KYBCYHL9119-93-14 14:01:00 Test Item Value Reference Range Interpretation Comments Gluc POC Lifscn (test code = Gluc POC no gt 70-99 A Lifscn) [facility] HospitalYrkdpnlJDLUVJOEU1344-09-99 13:52:00 Test Item Value Reference Range Interpretation Comments pO2 Roberth (test code = pO2 Roberth) 24 20-49 N [facility] HospitalOknkfnnORIYCCPWU2791-08-87 13:52:00 Test Item Value Reference Range Interpretation Comments HCO3 Roberth (test code = HCO3 Roberth) 32.0 22.0-26.0 H [facility] HospitalEtghmakJPTJDSSOO6928-15-11 13:52:00 Test Item Value Reference Range Interpretation Comments pCO2 Roberth (test code = pCO2 Roberth) 44 38-52 N [facility] HospitalCkuadrcTHENWPQEP7274-30-24 13:52:00 Test Item Value Reference Range Interpretation Comments BE Roberth (test code = 7 See_Comment H [Automa rohit message] The BE Roberth) system which ge nerated this result transmit rohit reference range : <=2. The reference range was not used to interpr et this result as reji l/abnormal. [facility] HospitalImptrgoYQXYLYVIC9432-07-34 13:52:00 Test Item Value Reference Range Interpretation Comments O2 Sat Roberth (test code = O2 Sat Roberth) 48.0 40.0-70.0 N [facility] HospitalZtleuquJHWRJSOKH9887-06-44 13:52:00 Test Item Value Reference Range Interpretation Comments Temp Roberth (test code = Temp Roberth) 37.0 [facility] HospitalTuiznqnIEDSTFBVG9800-15-05 13:52:00 Test Item Value Reference Range Interpretation Comments pH Roberth (test code = pH Roberth) 7.47 7.28-7.42 H [facility] HospitalHvgoxlqXVNZVZGVL1292-46-88 13:52:00 Test Item Value Reference Range Interpretation Comments Calcium Lvl (test code = Calcium Lvl) 10.1 8.5-10.5 N [facility] HospitalMnsrzpcNQUTUIIMV9024-10-58 13:52:00 Test Item Value Reference Range Interpretation Comments Chloride Lvl (test code = Chloride Lvl) 92 95-109 L [facility] HospitalUlwohttNWRETDUVQ2237-39-26 13:52:00 Test Item Value Reference Range Interpretation Comments CO2 (test code = CO2) 30 24-32 N [facility] HospitalYybifgqNHRKJTIYV8655-27-42 13:52:00 Test Item Value Reference Range Interpretation Comments Potassium Lvl (test code = Potassium 3.5 3.5-5.1 N Lvl) [facility] HospitalNhbhfvyZQVQKYEDD5429-82-70 13:52:00 Test Item Value Reference Range Interpretation Comments Sodium Lvl (test code = Sodium Lvl) 133 135-145 L [facility] HospitalAbuqkpfNJHNWRPOJ7303-39-47 13:52:00 Test Item Value Reference Range Interpretation Comments Creatinine Lvl (test code = Creatinine 1.3 0.5-1.4 N Lvl) [facility] HospitalDhptihlDYSCEMRJH1809-60-61 13:52:00 Test Item Value Reference Range Interpretation Comments Glucose Lvl (test code = Glucose Lvl) 383 70-99 H [facility] HospitalFywtpdyDONMNABYG6312-25-23 13:52:00 Test Item Value Reference Range Interpretation Comments BUN (test code = BUN) 17 7-22 N [facility] HospitalDliiewqVFAUKSGER7188-95-61 13:52:00 Test Item Value Reference Range Interpretation Comments AGAP (test code = AGAP) 14.5 10.0-20.0 N [facility] StationXnvybjgTWFIAIYTBO3694-02-71 13:52:00 Test Item Value Reference Range Interpretation Comments MPV (test code = MPV) 12.0 7.4-10.4 H [facility] StationDefnroaTJGYVKUGNY6496-31-79 13:52:00 Test Item Value Reference Range Interpretation Comments Platelet (test code = Platelet) 226 133-450 N [facility] StationGfaactnMBYTEBBFMJ5651-40-36 13:52:00 Test Item Value Reference Range Interpretation Comments MCHC (test code = MCHC) 33.7 32.0-36.0 N [facility] StationTtloovuALTAXFCYIW1387-86-42 13:52:00 Test Item Value Reference Range Interpretation Comments MCH (test code = MCH) 28.5 pg 27.0-31.0 N [facility] StationBgzaerwTNTCCDRAWO2972-60-80 13:52:00 Test Item Value Reference Range Interpretation Comments RDW (test code = RDW) 15.1 11.5-14.5 H [facility] StationEmsthleMPNTECOTIE5353-48-27 13:52:00 Test Item Value Reference Range Interpretation Comments MCV (test code = MCV) 84.6 81.0-99.0 N [facility] StationJemdnnoODDMEDSPFZ8582-85-62 13:52:00 Test Item Value Reference Range Interpretation Comments Hct (test code = Hct) 36.4 36.0-48.0 N [facility] StationThbpoxxCIYFHLXXDN5964-86-64 13:52:00 Test Item Value Reference Range Interpretation Comments Hgb (test code = Hgb) 12.3 12.0-16.0 N [facility] StationBczuzljMGLIQOZXPR7606-56-63 13:52:00 Test Item Value Reference Range Interpretation Comments RBC (test code = RBC) 4.30 4.20-5.40 N [facility] StationZebopuoZKEHJLLPFT6720-20-68 13:52:00 Test Item Value Reference Range Interpretation Comments WBC (test code = WBC) 11.7 3.7-10.4 H [facility] StationHirsbfyKXYCVGVPJL4223-13-50 13:52:00 Test Item Value Reference Range Interpretation Comments Monocytes (test code = Monocytes) 2.9 2.0-12.0 N [facility] StationPnufeibMYHWAJKANZ9901-88-38 13:52:00 Test Item Value Reference Range Interpretation Comments Eosinophils (test code = 0.2 See_Comment N [A utomated message] The Eosinophils) system which ge nerated this result tra nsmitted reference range : <=4.0. The reference r leo was not used to int erpret this result as normal/abnormal . [facility] StationCfrchwhAATWBWJANM7244-92-38 13:52:00 Test Item Value Reference Range Interpretation Comments Basophils (test code = 0.0 See_Comment N [Aut omated message] The Basophils) system which ge nerated this result tra nsmitted reference range : <=1.0. The reference r leo was not used to int erpret this result as normal/abnormal . [facility] StationIkcpaesDIDTJRIFUA9421-65-90 13:52:00 Test Item Value Reference Range Interpretation Comments Eosinophils # (test code 0.0 See_Comment N [A utomated message] The = Eosinophils #) system whic h generated this result tra nsmitted reference range : <=0.5. The reference r leo was not used to int erpret this result as normal/abnormal . [facility] StationNbsvrrfBLRMYEZQZB4372-51-96 13:52:00 Test Item Value Reference Range Interpretation Comments Monocytes # (test code 0.3 See_Comment N [Aut omated message] The = Monocytes #) system which generated this result tra nsmitted reference range : <=0.8. The reference r leo was not used to int erpret this result as normal/abnormal . [facility] StationLfjbkyzAVFPZJQOLE4188-73-57 13:52:00 Test Item Value Reference Range Interpretation Comments Segs (test code = Segs) 92.0 45.0-75.0 H [facility] StationKicirveFYOVAIBRUK4197-32-45 13:52:00 Test Item Value Reference Range Interpretation Comments Lymphocytes (test code = Lymphocytes) 4.9 20.0-40.0 L [facility] StationWguwhgnAMEZGAROCW7291-66-65 13:52:00 Test Item Value Reference Range Interpretation Comments Spherocyte (test code = Rare A Spherocyte) *ABN*(09/18/2011 08:52:00) [facility] StationYbmkoycYIHYUKEHCJ1674-38-99 13:52:00 Test Item Value Reference Range Interpretation Comments Large Plt (test code = Slight *ABN*(09/18/2011 A Large Plt) 08:52:00) [facility] StationInxobnnKJEGAQFEZR3747-31-90 13:52:00 Test Item Value Reference Range Interpretation Comments Microcyte (test code = 1+ *ABN*(09/18/2011 A Microcyte) 08:52:00) [facility] StationYqrlenxRAZJAOZHXV7545-58-40 13:52:00 Test Item Value Reference Range Interpretation Comments Schistocyte (test code = Schistocyte) Rare [facility] StationAkzsgvjXFGJNQQMTZ0560-93-25 13:52:00 Test Item Value Reference Range Interpretation Comments Macrocyte (test code = 1+ *ABN*(09/18/2011 A Macrocyte) 08:52:00) [facility] StationPjormydRGCLJJLHDV3765-35-77 13:52:00 Test Item Value Reference Range Interpretation Comments Lymphocytes # (test code = Lymphocytes 0.6 1.0-5.5 L #) [facility] StationOpvsntnKSFZSRZSUJ6111-74-75 13:52:00 Test Item Value Reference Range Interpretation Comments Segs-Bands # (test code = Segs-Bands #) 10.8 1.5-8.1 H [facility] StationGkfgkjjPCAGUQECCN3508-22-65 13:52:00 Test Item Value Reference Range Interpretation Comments Basophils # (test code 0.0 See_Comment N [Aut omated message] The = Basophils #) system which generated this result tra nsmitted reference range : <=0.2. The reference r leo was not used to int erpret this result as normal/abnormal . [facility] StationJklkxkbXGZTXEVSVN0666-91-84 13:52:00 Test Item Value Reference Range Interpretation Comments Anisocyte (test code = 1+ *ABN*(09/18/2011 A Anisocyte) 08:52:00) [facility]IqunavvNQHAQUXTEQ1054-72-69 13:52:00 Test Item Value Reference Range Interpretation Comments CDC-HIV 1/2 Ab (test Negative *NA*(09/18/2011 code = CDC-HIV 1/2 08:52:00) Ab) [facility]burgAoqogodXPBRUUZLF6008-99-69 13:52:00 Test Item Value Reference Range Interpretation Comments pO2 Roberth (test code = pO2 Roberth) 24 20-49 N [facility] HospitalFukpdxlTNGZNZNGC8710-40-54 13:52:00 Test Item Value Reference Range Interpretation Comments HCO3 Roberth (test code = HCO3 Roberth) 32.0 22.0-26.0 H [facility] HospitalNmrizzxVAOXHIJOP5165-96-16 13:52:00 Test Item Value Reference Range Interpretation Comments pCO2 Roberth (test code = pCO2 Roberth) 44 38-52 N [facility] HospitalDuslpxxXRFWFKIOJ6834-36-31 13:52:00 Test Item Value Reference Range Interpretation Comments BE Roberth (test code = 7 See_Comment H [Automa rohit message] The BE Roberth) system which ge nerated this result transmit rohit reference range : <=2. The reference range was not used to interpr et this result as reji l/abnormal. [facility] HospitalSnduqayLYTMELTEA2591-04-00 13:52:00 Test Item Value Reference Range Interpretation Comments O2 Sat Roberth (test code = O2 Sat Roberth) 48.0 40.0-70.0 N [facility] HospitalEweiofhFHHHTTSGJ3022-95-72 13:52:00 Test Item Value Reference Range Interpretation Comments Temp Roberth (test code = Temp Roberth) 37.0 [facility] HospitalAtwcdltVZQCZEMIJ8128-84-65 13:52:00 Test Item Value Reference Range Interpretation Comments pH Roberth (test code = pH Roberth) 7.47 7.28-7.42 H [facility] HospitalHebzbwwFJSVSOMPS1509-80-50 13:52:00 Test Item Value Reference Range Interpretation Comments Calcium Lvl (test code = Calcium Lvl) 10.1 8.5-10.5 N [facility] HospitalPguzagwWWYYMWDQJ6850-86-61 13:52:00 Test Item Value Reference Range Interpretation Comments Chloride Lvl (test code = Chloride Lvl) 92 95-109 L [facility] HospitalOlxrmwaNJKTESRYT7927-88-82 13:52:00 Test Item Value Reference Range Interpretation Comments CO2 (test code = CO2) 30 24-32 N [facility] HospitalGigzezgWMRZIPPCD7104-90-24 13:52:00 Test Item Value Reference Range Interpretation Comments Potassium Lvl (test code = Potassium 3.5 3.5-5.1 N Lvl) [facility] HospitalSxnduoiGADYDYTGN1963-82-51 13:52:00 Test Item Value Reference Range Interpretation Comments Sodium Lvl (test code = Sodium Lvl) 133 135-145 L [facility] HospitalCltfygoYNRUSNJBB2400-84-58 13:52:00 Test Item Value Reference Range Interpretation Comments Creatinine Lvl (test code = Creatinine 1.3 0.5-1.4 N Lvl) [facility] HospitalYnfudthYRSBQZQUY8552-09-05 13:52:00 Test Item Value Reference Range Interpretation Comments Glucose Lvl (test code = Glucose Lvl) 383 70-99 H [facility] HospitalAjeyxagOYTHPWLVW2330-86-09 13:52:00 Test Item Value Reference Range Interpretation Comments BUN (test code = BUN) 17 7-22 N [facility] HospitalDvuhssaLURRKDLMN6110-63-85 13:52:00 Test Item Value Reference Range Interpretation Comments AGAP (test code = AGAP) 14.5 10.0-20.0 N [facility] StationOezirisXOJJGCZAWK4299-29-99 13:52:00 Test Item Value Reference Range Interpretation Comments MPV (test code = MPV) 12.0 7.4-10.4 H [facility] StationYcdwfepEWMYNRNXJE6672-74-12 13:52:00 Test Item Value Reference Range Interpretation Comments Platelet (test code = Platelet) 226 133-450 N [facility] StationHcnxvrlTBQJMKHRZW8422-68-78 13:52:00 Test Item Value Reference Range Interpretation Comments MCHC (test code = MCHC) 33.7 32.0-36.0 N [facility] StationQbxiicwBCXREZFIZP2375-86-21 13:52:00 Test Item Value Reference Range Interpretation Comments MCH (test code = MCH) 28.5 pg 27.0-31.0 N [facility] StationHtdxickYYYPMOZYTM8204-16-81 13:52:00 Test Item Value Reference Range Interpretation Comments RDW (test code = RDW) 15.1 11.5-14.5 H [facility] StationCscnquhLZFNOPKTJK8214-74-34 13:52:00 Test Item Value Reference Range Interpretation Comments MCV (test code = MCV) 84.6 81.0-99.0 N [facility] StationEejnnrtXLJWGKXUUW2612-70-40 13:52:00 Test Item Value Reference Range Interpretation Comments Hct (test code = Hct) 36.4 36.0-48.0 N [facility] StationQjpjwxxBKSROVFEYA5715-21-14 13:52:00 Test Item Value Reference Range Interpretation Comments Hgb (test code = Hgb) 12.3 12.0-16.0 N [facility] StationSomprijYAAEAQNPDA2493-06-02 13:52:00 Test Item Value Reference Range Interpretation Comments RBC (test code = RBC) 4.30 4.20-5.40 N [facility] StationCawhonkCVFAVOJKPX6438-10-86 13:52:00 Test Item Value Reference Range Interpretation Comments WBC (test code = WBC) 11.7 3.7-10.4 H [facility] StationCqyprifWAIPQXEHMC4683-54-03 13:52:00 Test Item Value Reference Range Interpretation Comments Monocytes (test code = Monocytes) 2.9 2.0-12.0 N [facility] StationMgkjkuoRSNSYAVXZE5336-08-51 13:52:00 Test Item Value Reference Range Interpretation Comments Eosinophils (test code = 0.2 See_Comment N [A utomated message] The Eosinophils) system which ge nerated this result tra nsmitted reference range : <=4.0. The reference r leo was not used to int erpret this result as normal/abnormal . [facility] StationXdicakeUIOBVVPPWO1335-08-39 13:52:00 Test Item Value Reference Range Interpretation Comments Basophils (test code = 0.0 See_Comment N [Aut omated message] The Basophils) system which ge nerated this result tra nsmitted reference range : <=1.0. The reference r leo was not used to int erpret this result as normal/abnormal . [facility] StationDqqbpwmZBAYTCSEJD4894-46-28 13:52:00 Test Item Value Reference Range Interpretation Comments Eosinophils # (test code 0.0 See_Comment N [A utomated message] The = Eosinophils #) system wh h generated this result tra nsmitted reference range : <=0.5. The reference r leo was not used to int erpret this result as normal/abnormal . [facility] StationCuspvbzVAEJEQVMAJ5493-54-82 13:52:00 Test Item Value Reference Range Interpretation Comments Monocytes # (test code 0.3 See_Comment N [Aut omated message] The = Monocytes #) system which generated this result tra nsmitted reference range : <=0.8. The reference r leo was not used to int erpret this result as normal/abnormal . [facility] StationSlhnzotZJHUWRYBFD0372-23-05 13:52:00 Test Item Value Reference Range Interpretation Comments Segs (test code = Segs) 92.0 45.0-75.0 H [facility] StationUtrblrgZTZBLASVSW8921-99-91 13:52:00 Test Item Value Reference Range Interpretation Comments Lymphocytes (test code = Lymphocytes) 4.9 20.0-40.0 L [facility] StationViqptbzXYNNZSFEEP0414-29-86 13:52:00 Test Item Value Reference Range Interpretation Comments Spherocyte (test code = Rare A Spherocyte) *ABN*(09/18/2011 08:52:00) [facility] StationZfrffvmZNNNSGURFE4439-72-95 13:52:00 Test Item Value Reference Range Interpretation Comments Large Plt (test code = Slight *ABN*(09/18/2011 A Large Plt) 08:52:00) [facility] StationZiyseizDXEANKJWGU5824-99-32 13:52:00 Test Item Value Reference Range Interpretation Comments Microcyte (test code = 1+ *ABN*(09/18/2011 A Microcyte) 08:52:00) [facility] StationYpfyooqKTYBBNLXAT1106-65-12 13:52:00 Test Item Value Reference Range Interpretation Comments Schistocyte (test code = Schistocyte) Rare [facility] StationEpgenilUYTRRUZPGS7605-27-61 13:52:00 Test Item Value Reference Range Interpretation Comments Macrocyte (test code = 1+ *ABN*(09/18/2011 A Macrocyte) 08:52:00) [facility] StationVkfqhcwNCKJKVZBXL0665-48-70 13:52:00 Test Item Value Reference Range Interpretation Comments Lymphocytes # (test code = Lymphocytes 0.6 1.0-5.5 L #) [facility] StationWenltsbPFORUVAPKO9737-12-56 13:52:00 Test Item Value Reference Range Interpretation Comments Segs-Bands # (test code = Segs-Bands #) 10.8 1.5-8.1 H [facility] StationEeofqxiYWTJTXFAVH3738-61-36 13:52:00 Test Item Value Reference Range Interpretation Comments Basophils # (test code 0.0 See_Comment N [Aut omated message] The = Basophils #) system which generated this result tra nsmitted reference range : <=0.2. The reference r leo was not used to int erpret this result as normal/abnormal . [facility] StationFtvwpufIHBRPHWOIJ1670-25-42 13:52:00 Test Item Value Reference Range Interpretation Comments Anisocyte (test code = 1+ *ABN*(09/18/2011 A Anisocyte) 08:52:00) [facility]burgZikrjyxOSCGWFZGRN1928-33-20 13:52:00 Test Item Value Reference Range Interpretation Comments CDC-HIV 1/2 Ab (test Negative *NA*(09/18/2011 code = CDC-HIV 1/2 08:52:00) Ab) [facility] HospitalAvgmbalLKIGHOHNJ7606-68-01 13:52:00 Test Item Value Reference Range Interpretation Comments pO2 Roberth (test code = pO2 Roberth) 24 20-49 N [facility] HospitalAisbsmvHZSZCHSGU3426-66-61 13:52:00 Test Item Value Reference Range Interpretation Comments HCO3 Roberth (test code = HCO3 Roberth) 32.0 22.0-26.0 H [facility] HospitalFpncghoPXHOWCLNE5547-74-94 13:52:00 Test Item Value Reference Range Interpretation Comments pCO2 Roberth (test code = pCO2 Roberth) 44 38-52 N [facility] HospitalMoniqnhDNDDXVDEL9069-09-07 13:52:00 Test Item Value Reference Range Interpretation Comments BE Roberth (test code = 7 See_Comment H [Automa rohit message] The BE Roberth) system which ge nerated this result transmit rohit reference range : <=2. The reference range was not used to interpr et this result as reji l/abnormal. [facility] HospitalPsukoweBMFAJMGVG6081-90-61 13:52:00 Test Item Value Reference Range Interpretation Comments O2 Sat Roberth (test code = O2 Sat Roberth) 48.0 40.0-70.0 N [facility] HospitalOdoxozbOUFOXFBUM4663-29-91 13:52:00 Test Item Value Reference Range Interpretation Comments Temp Roberth (test code = Temp Roberth) 37.0 [facility] HospitalJteuzkvUTIFZXVUI1290-98-70 13:52:00 Test Item Value Reference Range Interpretation Comments pH Roberth (test code = pH Roberth) 7.47 7.28-7.42 H [facility] HospitalZzhlqabLSVOEVIYL0351-18-16 13:52:00 Test Item Value Reference Range Interpretation Comments Calcium Lvl (test code = Calcium Lvl) 10.1 8.5-10.5 N [facility] HospitalYuviellIZXNFIVTV9973-61-13 13:52:00 Test Item Value Reference Range Interpretation Comments Chloride Lvl (test code = Chloride Lvl) 92 95-109 L [facility] HospitalZtkhhpeDPWFGFMHL4384-22-76 13:52:00 Test Item Value Reference Range Interpretation Comments CO2 (test code = CO2) 30 24-32 N [facility] HospitalCkzkzqcVYZTMNJBR7163-54-51 13:52:00 Test Item Value Reference Range Interpretation Comments Potassium Lvl (test code = Potassium 3.5 3.5-5.1 N Lvl) [facility] HospitalJgctttvTYDIKHBRA6907-46-34 13:52:00 Test Item Value Reference Range Interpretation Comments Sodium Lvl (test code = Sodium Lvl) 133 135-145 L [facility] HospitalVtbvxgzHKVZQBJTA4475-24-42 13:52:00 Test Item Value Reference Range Interpretation Comments Creatinine Lvl (test code = Creatinine 1.3 0.5-1.4 N Lvl) [facility] HospitalLiwegioVNDHWMUXM3611-41-87 13:52:00 Test Item Value Reference Range Interpretation Comments Glucose Lvl (test code = Glucose Lvl) 383 70-99 H [facility] HospitalZptwfnsYUEQNLMXL4945-31-19 13:52:00 Test Item Value Reference Range Interpretation Comments BUN (test code = BUN) 17 7-22 N [facility] HospitalMdeeacaUPSVTCECU6122-82-65 13:52:00 Test Item Value Reference Range Interpretation Comments AGAP (test code = AGAP) 14.5 10.0-20.0 N [facility] StationMdrjscxNFTZRKDAMO1643-93-08 13:52:00 Test Item Value Reference Range Interpretation Comments MPV (test code = MPV) 12.0 7.4-10.4 H [facility] StationMuosuzoQCSFUFONKA3009-20-17 13:52:00 Test Item Value Reference Range Interpretation Comments Platelet (test code = Platelet) 226 133-450 N [facility] StationTpaqzrdMZCQHAWPPG2150-15-65 13:52:00 Test Item Value Reference Range Interpretation Comments MCHC (test code = MCHC) 33.7 32.0-36.0 N [facility] StationZibuzyjRCNICPMWRS7566-16-65 13:52:00 Test Item Value Reference Range Interpretation Comments MCH (test code = MCH) 28.5 pg 27.0-31.0 N [facility] StationJzaiadcIDYQYWTYPO4173-45-76 13:52:00 Test Item Value Reference Range Interpretation Comments RDW (test code = RDW) 15.1 11.5-14.5 H [facility] StationDrldyuuEGYOXCSMEF1812-07-94 13:52:00 Test Item Value Reference Range Interpretation Comments MCV (test code = MCV) 84.6 81.0-99.0 N [facility] StationEokggmfNLUKDBEDES1669-11-30 13:52:00 Test Item Value Reference Range Interpretation Comments Hct (test code = Hct) 36.4 36.0-48.0 N [facility] StationTyghismGBBQNBDXZP0660-02-50 13:52:00 Test Item Value Reference Range Interpretation Comments Hgb (test code = Hgb) 12.3 12.0-16.0 N [facility] StationFizzivpOWSXBOGJMM2946-82-02 13:52:00 Test Item Value Reference Range Interpretation Comments RBC (test code = RBC) 4.30 4.20-5.40 N [facility] StationQdyrwbsXYMRUCHKIP6423-60-53 13:52:00 Test Item Value Reference Range Interpretation Comments WBC (test code = WBC) 11.7 3.7-10.4 H [facility] StationDjzzkuoYIFGDBVBEN8418-74-07 13:52:00 Test Item Value Reference Range Interpretation Comments Monocytes (test code = Monocytes) 2.9 2.0-12.0 N [facility] StationBtkypfpTZAWSXRHVO3165-78-18 13:52:00 Test Item Value Reference Range Interpretation Comments Eosinophils (test code = 0.2 See_Comment N [A utomated message] The Eosinophils) system which ge nerated this result tra nsmitted reference range : <=4.0. The reference r leo was not used to int erpret this result as normal/abnormal . [facility] StationBsoplpiTMNSCGGJLF1298-41-51 13:52:00 Test Item Value Reference Range Interpretation Comments Basophils (test code = 0.0 See_Comment N [Aut omated message] The Basophils) system which ge nerated this result tra nsmitted reference range : <=1.0. The reference r leo was not used to int erpret this result as normal/abnormal . [facility] StationJxubajlBZONOPDUQR7194-90-28 13:52:00 Test Item Value Reference Range Interpretation Comments Eosinophils # (test code 0.0 See_Comment N [A utomated message] The = Eosinophils #) system whic h generated this result tra nsmitted reference range : <=0.5. The reference r leo was not used to int erpret this result as normal/abnormal . [facility] StationNypposzAPYWVNXLYM7984-84-36 13:52:00 Test Item Value Reference Range Interpretation Comments Monocytes # (test code 0.3 See_Comment N [Aut omated message] The = Monocytes #) system which generated this result tra nsmitted reference range : <=0.8. The reference r leo was not used to int erpret this result as normal/abnormal . [facility] StationJtgtebcPSUNOTHMLC5053-72-12 13:52:00 Test Item Value Reference Range Interpretation Comments Segs (test code = Segs) 92.0 45.0-75.0 H [facility] StationXzpugldGOXHLPFKAW4080-56-34 13:52:00 Test Item Value Reference Range Interpretation Comments Lymphocytes (test code = Lymphocytes) 4.9 20.0-40.0 L [facility] StationReiulrrKVQEAYSMJF4335-56-96 13:52:00 Test Item Value Reference Range Interpretation Comments Spherocyte (test code = Rare A Spherocyte) *ABN*(09/18/2011 08:52:00) [facility] StationAvzhsfoASRAPQMYGZ5491-11-19 13:52:00 Test Item Value Reference Range Interpretation Comments Large Plt (test code = Slight *ABN*(09/18/2011 A Large Plt) 08:52:00) [facility] StationBhyefuzSGARIWHFNA7451-34-82 13:52:00 Test Item Value Reference Range Interpretation Comments Microcyte (test code = 1+ *ABN*(09/18/2011 A Microcyte) 08:52:00) [facility] StationNsmaggsRYMJXWWQQG7560-34-10 13:52:00 Test Item Value Reference Range Interpretation Comments Schistocyte (test code = Schistocyte) Rare [facility] StationHxetbguMNWTEDMEXR3355-89-09 13:52:00 Test Item Value Reference Range Interpretation Comments Macrocyte (test code = 1+ *ABN*(09/18/2011 A Macrocyte) 08:52:00) [facility] StationMqwvcktZSKGMUCEJX1075-70-87 13:52:00 Test Item Value Reference Range Interpretation Comments Lymphocytes # (test code = Lymphocytes 0.6 1.0-5.5 L #) [facility] StationFhmhnqeOCNHMHQWJC3985-66-45 13:52:00 Test Item Value Reference Range Interpretation Comments Segs-Bands # (test code = Segs-Bands #) 10.8 1.5-8.1 H [facility] StationKpxsqlsLMXAYEHUHH7480-18-68 13:52:00 Test Item Value Reference Range Interpretation Comments Basophils # (test code 0.0 See_Comment N [Aut omated message] The = Basophils #) system which generated this result tra nsmitted reference range : <=0.2. The reference r leo was not used to int erpret this result as normal/abnormal . [facility] StationDbkqwcgYYZYEUCEMW1690-51-72 13:52:00 Test Item Value Reference Range Interpretation Comments Anisocyte (test code = 1+ *ABN*(09/18/2011 A Anisocyte) 08:52:00) [facility] TaylorCrplewgMZMWIKZCBX6183-39-50 13:52:00 Test Item Value Reference Range Interpretation Comments CDC-HIV 1/2 Ab (test Negative *NA*(09/18/2011 code = CDC-HIV 1/2 08:52:00) Ab) [facility] HospitalBbxmwqySSHFWYASY8983-99-70 13:52:00 Test Item Value Reference Range Interpretation Comments pO2 Roberth (test code = pO2 Roberth) 24 20-49 N [facility] HospitalXvlngjaTXVBKJCGJ8239-90-43 13:52:00 Test Item Value Reference Range Interpretation Comments HCO3 Roberth (test code = HCO3 Roberth) 32.0 22.0-26.0 H [facility] HospitalLnducykKHQKSBPUC8530-37-52 13:52:00 Test Item Value Reference Range Interpretation Comments pCO2 Roberth (test code = pCO2 Roberth) 44 38-52 N [facility] HospitalHyyxvwjTBPRHJNBI8644-30-62 13:52:00 Test Item Value Reference Range Interpretation Comments BE Roberth (test code = 7 See_Comment H [Automa rohit message] The BE Roberth) system which ge nerated this result transmit rohit reference range : <=2. The reference range was not used to interpr et this result as reji l/abnormal. [facility] HospitalKshuibkTAFYGTVRG4864-86-06 13:52:00 Test Item Value Reference Range Interpretation Comments O2 Sat Roberth (test code = O2 Sat Roberth) 48.0 40.0-70.0 N [facility] HospitalBibkxyvJGKGXCNWW2422-25-75 13:52:00 Test Item Value Reference Range Interpretation Comments Temp Roberth (test code = Temp Roberth) 37.0 [facility] HospitalAoqjojoWAGKRGYTS2611-04-48 13:52:00 Test Item Value Reference Range Interpretation Comments pH Roberth (test code = pH Roberth) 7.47 7.28-7.42 H [facility] HospitalExbvgmyMGXVUXQNU4292-03-00 13:52:00 Test Item Value Reference Range Interpretation Comments Calcium Lvl (test code = Calcium Lvl) 10.1 8.5-10.5 N [facility] HospitalGshztxxULEHSOQKZ3617-11-30 13:52:00 Test Item Value Reference Range Interpretation Comments Chloride Lvl (test code = Chloride Lvl) 92 95-109 L [facility] HospitalYdjlatpAPZPQQIJZ4801-52-21 13:52:00 Test Item Value Reference Range Interpretation Comments CO2 (test code = CO2) 30 24-32 N [facility] HospitalNldnwyqBXOEKGOMG7037-08-43 13:52:00 Test Item Value Reference Range Interpretation Comments Potassium Lvl (test code = Potassium 3.5 3.5-5.1 N Lvl) [facility] HospitalXkjknvzPLSUCBGPU7485-80-29 13:52:00 Test Item Value Reference Range Interpretation Comments Sodium Lvl (test code = Sodium Lvl) 133 135-145 L [facility] HospitalBupdpwxJZJLKTOMS6167-66-71 13:52:00 Test Item Value Reference Range Interpretation Comments Creatinine Lvl (test code = Creatinine 1.3 0.5-1.4 N Lvl) [facility] HospitalDzcmwpiFMEMYAZEN6819-56-68 13:52:00 Test Item Value Reference Range Interpretation Comments Glucose Lvl (test code = Glucose Lvl) 383 70-99 H [facility] HospitalUlxzeexISHRZPRGK4236-36-81 13:52:00 Test Item Value Reference Range Interpretation Comments BUN (test code = BUN) 17 7-22 N [facility] HospitalZpbgrvqSTHBWRVTT0183-10-56 13:52:00 Test Item Value Reference Range Interpretation Comments AGAP (test code = AGAP) 14.5 10.0-20.0 N [facility] StationCijouogSYUXIVOPQF9844-75-27 13:52:00 Test Item Value Reference Range Interpretation Comments MPV (test code = MPV) 12.0 7.4-10.4 H [facility] StationIytdcxlPHRJMZWSDX4867-06-71 13:52:00 Test Item Value Reference Range Interpretation Comments Platelet (test code = Platelet) 226 133-450 N [facility] StationSnpkqxmCIKJHMIMQX5042-75-94 13:52:00 Test Item Value Reference Range Interpretation Comments MCHC (test code = MCHC) 33.7 32.0-36.0 N [facility] StationEqahiyoRRTOAGMVMX8463-02-09 13:52:00 Test Item Value Reference Range Interpretation Comments MCH (test code = MCH) 28.5 pg 27.0-31.0 N [facility] StationEwywpzgUTCDZSGPAL9602-21-62 13:52:00 Test Item Value Reference Range Interpretation Comments RDW (test code = RDW) 15.1 11.5-14.5 H [facility] StationGsfoizwIMANYGGGBK0943-49-89 13:52:00 Test Item Value Reference Range Interpretation Comments MCV (test code = MCV) 84.6 81.0-99.0 N [facility] StationWsgjzonPFEDJNTLIQ9747-73-66 13:52:00 Test Item Value Reference Range Interpretation Comments Hct (test code = Hct) 36.4 36.0-48.0 N [facility] StationUohwdkwKJFVODJIDP2682-87-33 13:52:00 Test Item Value Reference Range Interpretation Comments Hgb (test code = Hgb) 12.3 12.0-16.0 N [facility] StationXevlkorBGXQHNUZSF2207-51-02 13:52:00 Test Item Value Reference Range Interpretation Comments RBC (test code = RBC) 4.30 4.20-5.40 N [facility] StationPpuvfmpPHZFLGNOWN3673-91-51 13:52:00 Test Item Value Reference Range Interpretation Comments WBC (test code = WBC) 11.7 3.7-10.4 H [facility] StationZrtrjxtMXDZQMHOCK2059-35-89 13:52:00 Test Item Value Reference Range Interpretation Comments Monocytes (test code = Monocytes) 2.9 2.0-12.0 N [facility] StationJuoinwqMFEYVUXSSA2598-54-34 13:52:00 Test Item Value Reference Range Interpretation Comments Eosinophils (test code = 0.2 See_Comment N [A utomated message] The Eosinophils) system which ge nerated this result tra nsmitted reference range : <=4.0. The reference r leo was not used to int erpret this result as normal/abnormal . [facility] StationEuevyojMBCXRUPLQR5269-36-18 13:52:00 Test Item Value Reference Range Interpretation Comments Basophils (test code = 0.0 See_Comment N [Aut omated message] The Basophils) system which ge nerated this result tra nsmitted reference range : <=1.0. The reference r leo was not used to int erpret this result as normal/abnormal . [facility] StationWabdeiqAQWJNGAATJ9666-81-07 13:52:00 Test Item Value Reference Range Interpretation Comments Eosinophils # (test code 0.0 See_Comment N [A utomated message] The = Eosinophils #) system wh h generated this result tra nsmitted reference range : <=0.5. The reference r leo was not used to int erpret this result as normal/abnormal . [facility] StationLjmblrkBPIJIHGHBP1130-90-76 13:52:00 Test Item Value Reference Range Interpretation Comments Monocytes # (test code 0.3 See_Comment N [Aut omated message] The = Monocytes #) system which generated this result tra nsmitted reference range : <=0.8. The reference r leo was not used to int erpret this result as normal/abnormal . [facility] StationOhbmgdiUQCUZKIBTL3543-01-19 13:52:00 Test Item Value Reference Range Interpretation Comments Segs (test code = Segs) 92.0 45.0-75.0 H [facility] StationHujtbsfJBPNUHZVVW2016-29-72 13:52:00 Test Item Value Reference Range Interpretation Comments Lymphocytes (test code = Lymphocytes) 4.9 20.0-40.0 L [facility] StationKsnlsbhVVPRNOHZRP4740-11-55 13:52:00 Test Item Value Reference Range Interpretation Comments Spherocyte (test code = Rare A Spherocyte) *ABN*(09/18/2011 08:52:00) [facility] StationZwuzdmySPDWTTOQKE5478-71-65 13:52:00 Test Item Value Reference Range Interpretation Comments Large Plt (test code = Slight *ABN*(09/18/2011 A Large Plt) 08:52:00) [facility] StationPixnyesPPYCASOHTU1753-54-67 13:52:00 Test Item Value Reference Range Interpretation Comments Microcyte (test code = 1+ *ABN*(09/18/2011 A Microcyte) 08:52:00) [facility] StationUshrethSYIPNNGJFH9992-83-93 13:52:00 Test Item Value Reference Range Interpretation Comments Schistocyte (test code = Schistocyte) Rare [facility] StationQdqgrnoFYJUOYJTOX2295-52-23 13:52:00 Test Item Value Reference Range Interpretation Comments Macrocyte (test code = 1+ *ABN*(09/18/2011 A Macrocyte) 08:52:00) [facility] StationXuetwijYTPXIIYXQK3335-19-55 13:52:00 Test Item Value Reference Range Interpretation Comments Lymphocytes # (test code = Lymphocytes 0.6 1.0-5.5 L #) [facility] StationZmremneIUVEASOPDZ6789-80-81 13:52:00 Test Item Value Reference Range Interpretation Comments Segs-Bands # (test code = Segs-Bands #) 10.8 1.5-8.1 H [facility] StationQlzbhmyCOPUJMLHRY0445-09-29 13:52:00 Test Item Value Reference Range Interpretation Comments Basophils # (test code 0.0 See_Comment N [Aut omated message] The = Basophils #) system which generated this result tra nsmitted reference range : <=0.2. The reference r leo was not used to int erpret this result as normal/abnormal . [facility] StationIokpwydVXXLQXDVUS4036-55-53 13:52:00 Test Item Value Reference Range Interpretation Comments Anisocyte (test code = 1+ *ABN*(09/18/2011 A Anisocyte) 08:52:00) [facility]NnvoucjWTAKJJJUHT4164-82-86 13:52:00 Test Item Value Reference Range Interpretation Comments CDC-HIV 1/2 Ab (test Negative *NA*(09/18/2011 code = CDC-HIV 1/2 08:52:00) Ab) [facility] HospitalGayzujlISFMNRGRQ7123-85-74 13:52:00 Test Item Value Reference Range Interpretation Comments pO2 Roberth (test code = pO2 Roberth) 24 20-49 N [facility] HospitalJealfuqKDFTXIXUV5326-17-27 13:52:00 Test Item Value Reference Range Interpretation Comments HCO3 Roberth (test code = HCO3 Roberth) 32.0 22.0-26.0 H [facility] HospitalHauxesxYLYVLDAFM7909-24-56 13:52:00 Test Item Value Reference Range Interpretation Comments pCO2 Roberth (test code = pCO2 Roberth) 44 38-52 N [facility] HospitalIeuhapnTFYFIZZWH6959-87-50 13:52:00 Test Item Value Reference Range Interpretation Comments BE Roberth (test code = 7 See_Comment H [Automa rohit message] The BE Roberth) system which ge nerated this result transmit rohit reference range : <=2. The reference range was not used to interpr et this result as reji l/abnormal. [facility] HospitalBlycoiwIOFTGNKKW0828-48-35 13:52:00 Test Item Value Reference Range Interpretation Comments O2 Sat Roberth (test code = O2 Sat Roberth) 48.0 40.0-70.0 N [facility] HospitalUslbhhzSQHIGNYLL3624-34-28 13:52:00 Test Item Value Reference Range Interpretation Comments Temp Roberth (test code = Temp Roberth) 37.0 [facility] HospitalMxtixwgTKHNOAMUW3175-22-94 13:52:00 Test Item Value Reference Range Interpretation Comments pH Roberth (test code = pH Roberth) 7.47 7.28-7.42 H [facility] HospitalLljyljqKMNTXUQQT0932-36-82 13:52:00 Test Item Value Reference Range Interpretation Comments Calcium Lvl (test code = Calcium Lvl) 10.1 8.5-10.5 N [facility] HospitalTswcnraQOEMILYCD6060-13-69 13:52:00 Test Item Value Reference Range Interpretation Comments Chloride Lvl (test code = Chloride Lvl) 92 95-109 L [facility] HospitalUkoncntWRPGNQXAU8919-35-53 13:52:00 Test Item Value Reference Range Interpretation Comments CO2 (test code = CO2) 30 24-32 N [facility] HospitalEseihxeVZJKHSCOJ8380-38-25 13:52:00 Test Item Value Reference Range Interpretation Comments Potassium Lvl (test code = Potassium 3.5 3.5-5.1 N Lvl) [facility] HospitalRowduxgCENAKMWGC2279-25-06 13:52:00 Test Item Value Reference Range Interpretation Comments Sodium Lvl (test code = Sodium Lvl) 133 135-145 L [facility] HospitalYuxacepFPCJFSVBQ4957-99-55 13:52:00 Test Item Value Reference Range Interpretation Comments Creatinine Lvl (test code = Creatinine 1.3 0.5-1.4 N Lvl) [facility] HospitalWmojauzVLQMBKIQV3228-79-70 13:52:00 Test Item Value Reference Range Interpretation Comments Glucose Lvl (test code = Glucose Lvl) 383 70-99 H [facility] HospitalOheqqptAOPIWDIOY5998-19-66 13:52:00 Test Item Value Reference Range Interpretation Comments BUN (test code = BUN) 17 7-22 N [facility] HospitalLdztnbeSGTBRPNBX6291-35-64 13:52:00 Test Item Value Reference Range Interpretation Comments AGAP (test code = AGAP) 14.5 10.0-20.0 N [facility] StationAtzofmxVZPRIUHDIL6477-35-97 13:52:00 Test Item Value Reference Range Interpretation Comments MPV (test code = MPV) 12.0 7.4-10.4 H [facility] StationGpwuygbDTDJSJJLRT4431-90-90 13:52:00 Test Item Value Reference Range Interpretation Comments Platelet (test code = Platelet) 226 133-450 N [facility] StationFlgqcpyLHCNTJKUXM4610-08-55 13:52:00 Test Item Value Reference Range Interpretation Comments MCHC (test code = MCHC) 33.7 32.0-36.0 N [facility] StationPgyzikpGPBYLSIZME4780-60-15 13:52:00 Test Item Value Reference Range Interpretation Comments MCH (test code = MCH) 28.5 pg 27.0-31.0 N [facility] StationFrihrvgVGLWFRHFAQ9347-31-67 13:52:00 Test Item Value Reference Range Interpretation Comments RDW (test code = RDW) 15.1 11.5-14.5 H [facility] StationMcmjduuQTMDXKSYEY2908-40-69 13:52:00 Test Item Value Reference Range Interpretation Comments MCV (test code = MCV) 84.6 81.0-99.0 N [facility] StationJhuzesdACRWCXXJGG5471-00-71 13:52:00 Test Item Value Reference Range Interpretation Comments Hct (test code = Hct) 36.4 36.0-48.0 N [facility] StationMmsngxbNTYZWCRIZX9058-65-77 13:52:00 Test Item Value Reference Range Interpretation Comments Hgb (test code = Hgb) 12.3 12.0-16.0 N [facility] StationNjqiscaYRNTNITDCG4776-96-57 13:52:00 Test Item Value Reference Range Interpretation Comments RBC (test code = RBC) 4.30 4.20-5.40 N [facility] StationMphriqbKWTCMHGUDQ7173-76-43 13:52:00 Test Item Value Reference Range Interpretation Comments WBC (test code = WBC) 11.7 3.7-10.4 H [facility] StationFmmbyxvZEIKVLGCSB0023-16-16 13:52:00 Test Item Value Reference Range Interpretation Comments Monocytes (test code = Monocytes) 2.9 2.0-12.0 N [facility] StationEmflewwYVDHTTSLDF8726-56-38 13:52:00 Test Item Value Reference Range Interpretation Comments Eosinophils (test code = 0.2 See_Comment N [A utomated message] The Eosinophils) system which ge nerated this result tra nsmitted reference range : <=4.0. The reference r leo was not used to int erpret this result as normal/abnormal . [facility] StationQeecjxfIJPFOQYLCB9111-60-76 13:52:00 Test Item Value Reference Range Interpretation Comments Basophils (test code = 0.0 See_Comment N [Aut omated message] The Basophils) system which ge nerated this result tra nsmitted reference range : <=1.0. The reference r leo was not used to int erpret this result as normal/abnormal . [facility] StationWhlswcsOVCICBNCDV0598-24-25 13:52:00 Test Item Value Reference Range Interpretation Comments Eosinophils # (test code 0.0 See_Comment N [A utomated message] The = Eosinophils #) system whic h generated this result tra nsmitted reference range : <=0.5. The reference r leo was not used to int erpret this result as normal/abnormal . [facility] StationSfergogMFYFLNCAVV1169-73-43 13:52:00 Test Item Value Reference Range Interpretation Comments Monocytes # (test code 0.3 See_Comment N [Aut omated message] The = Monocytes #) system which generated this result tra nsmitted reference range : <=0.8. The reference r leo was not used to int erpret this result as normal/abnormal . [facility] StationTciscugVKETJNBRTI7538-49-02 13:52:00 Test Item Value Reference Range Interpretation Comments Segs (test code = Segs) 92.0 45.0-75.0 H [facility] StationZhymjnaFBGIYYBCCK9241-25-22 13:52:00 Test Item Value Reference Range Interpretation Comments Lymphocytes (test code = Lymphocytes) 4.9 20.0-40.0 L [facility] [place]li[place]GYZPPVHOIU4333-93-96 13:52:00 Test Item Value Reference Range Interpretation Comments Spherocyte (test code = Rare A Spherocyte) *ABN*(09/18/2011 08:52:00) [facility] StationLiwpyjmQMSZDGXYZB4675-47-03 13:52:00 Test Item Value Reference Range Interpretation Comments Large Plt (test code = Slight *ABN*(09/18/2011 A Large Plt) 08:52:00) [facility] StationKstwnsjWIJBJKFBQB8823-99-38 13:52:00 Test Item Value Reference Range Interpretation Comments Microcyte (test code = 1+ *ABN*(09/18/2011 A Microcyte) 08:52:00) [facility] StationAquzqyhNPCEGIHGEB9982-94-45 13:52:00 Test Item Value Reference Range Interpretation Comments Schistocyte (test code = Schistocyte) Rare [facility] StationGmbdvdiICAJIDWVEH5881-16-15 13:52:00 Test Item Value Reference Range Interpretation Comments Macrocyte (test code = 1+ *ABN*(09/18/2011 A Macrocyte) 08:52:00) [facility] StationLacvtliXICUQVYCWH7334-94-81 13:52:00 Test Item Value Reference Range Interpretation Comments Lymphocytes # (test code = Lymphocytes 0.6 1.0-5.5 L #) [facility] StationQvkoxzbEXTPWOBHAT9147-80-08 13:52:00 Test Item Value Reference Range Interpretation Comments Segs-Bands # (test code = Segs-Bands #) 10.8 1.5-8.1 H [facility] StationIccejawNKYEBPHYXR2215-23-26 13:52:00 Test Item Value Reference Range Interpretation Comments Basophils # (test code 0.0 See_Comment N [Aut omated message] The = Basophils #) system which generated this result tra nsmitted reference range : <=0.2. The reference r leo was not used to int erpret this result as normal/abnormal . [facility]DynyldgHSGNYQMSBL4539-04-73 13:52:00 Test Item Value Reference Range Interpretation Comments Anisocyte (test code = 1+ *ABN*(09/18/2011 A Anisocyte) 08:52:00) [facility]HxsgkdwBKDYLKVRJQ5135-09-54 13:52:00 Test Item Value Reference Range Interpretation Comments CDC-HIV 1/2 Ab (test Negative *NA*(09/18/2011 code = CDC-HIV 1/2 08:52:00) Ab) [facility] GLUCOSE [id number] 17:34:00 Test Item Value Reference Range Interpretation Comments Gluc POC Lifscn (test code = Gluc POC 215 70-99 H Lifscn) [facility] GLUCOSE [id number] 17:34:00 Test Item Value Reference Range Interpretation Comments Comment1 (test code = Comment1) Notify RN/ [facility] GLUCOSE [id number] 17:34:00 Test Item Value Reference Range Interpretation Comments Gluc POC Lifscn (test code = Gluc POC 215 70-99 H Lifscn) [facility] GLUCOSE [id number] 17:34:00 Test Item Value Reference Range Interpretation Comments Comment1 (test code = Comment1) Notify RN/ [facility] GLUCOSE [id number] 17:34:00 Test Item Value Reference Range Interpretation Comments Gluc POC Lifscn (test code = Gluc POC 215 70-99 H Lifscn) [facility] GLUCOSE [id number] 17:34:00 Test Item Value Reference Range Interpretation Comments Comment1 (test code = Comment1) Notify RN/ [facility] GLUCOSE [id number] 17:34:00 Test Item Value Reference Range Interpretation Comments Gluc POC Lifscn (test code = Gluc POC 215 70-99 H Lifscn) [facility] GLUCOSE [id number] 17:34:00 Test Item Value Reference Range Interpretation Comments Comment1 (test code = Comment1) Notify TABATHA/ [facility] GLUCOSE [id number] 17:34:00 Test Item Value Reference Range Interpretation Comments Gluc POC Lifscn (test code = Gluc POC 215 70-99 H Lifscn) [facility] GLUCOSE [id number] 17:34:00 Test Item Value Reference Range Interpretation Comments Comment1 (test code = Comment1) Notify RN/ [facility] GLUCOSE [id number] 11:43:00 Test Item Value Reference Range Interpretation Comments Comment1 (test code = Comment1) Notify RN/ [facility] GLUCOSE [id number] 11:43:00 Test Item Value Reference Range Interpretation Comments Gluc POC Lifscn (test code = Gluc POC 91 65-110 N Lifscn) [facility] GLUCOSE [id number] 11:43:00 Test Item Value Reference Range Interpretation Comments Comment1 (test code = Comment1) Notify RN/ [facility] GLUCOSE [id number] 11:43:00 Test Item Value Reference Range Interpretation Comments Gluc POC Lifscn (test code = Gluc POC 91 65-110 N Lifscn) [facility] GLUCOSE [id number] 11:43:00 Test Item Value Reference Range Interpretation Comments Comment1 (test code = Comment1) Notify RN/ [facility] GLUCOSE [id number] 11:43:00 Test Item Value Reference Range Interpretation Comments Gluc POC Lifscn (test code = Gluc POC 91 65-110 N Lifscn) [facility] GLUCOSE [id number] 11:43:00 Test Item Value Reference Range Interpretation Comments Comment1 (test code = Comment1) Notify RN/ [facility] GLUCOSE [id number] 11:43:00 Test Item Value Reference Range Interpretation Comments Gluc POC Lifscn (test code = Gluc POC 91 65-110 N Lifscn) [facility] GLUCOSE [id number] 11:43:00 Test Item Value Reference Range Interpretation Comments Comment1 (test code = Comment1) Notify RN/ [facility] GLUCOSE [id number] 11:43:00 Test Item Value Reference Range Interpretation Comments Gluc POC Lifscn (test code = Gluc POC 91 65-110 N Lifscn) [facility] GLUCOSE [id number] 02:45:00 Test Item Value Reference Range Interpretation Comments Comment1 (test code = Comment1) Notify RN/ [facility] GLUCOSE [id number] 02:45:00 Test Item Value Reference Range Interpretation Comments Gluc POC Lifscn (test code = Gluc POC 148 65-110 H Lifscn) [facility] GLUCOSE [id number] 02:45:00 Test Item Value Reference Range Interpretation Comments Comment1 (test code = Comment1) Notify RN/ [facility] GLUCOSE [id number] 02:45:00 Test Item Value Reference Range Interpretation Comments Gluc POC Lifscn (test code = Gluc POC 148 65-110 H Lifscn) [facility] GLUCOSE [id number] 02:45:00 Test Item Value Reference Range Interpretation Comments Comment1 (test code = Comment1) Notify RN/ [facility] GLUCOSE [id number] 02:45:00 Test Item Value Reference Range Interpretation Comments Gluc POC Lifscn (test code = Gluc POC 148 65-110 H Lifscn) [facility] GLUCOSE [id number] 02:45:00 Test Item Value Reference Range Interpretation Comments Comment1 (test code = Comment1) Notify RN/ [facility] GLUCOSE [id number] 02:45:00 Test Item Value Reference Range Interpretation Comments Gluc POC Lifscn (test code = Gluc POC 148 65-110 H Lifscn) [facility] GLUCOSE [id number] 02:45:00 Test Item Value Reference Range Interpretation Comments Comment1 (test code = Comment1) Notify RN/ [facility] GLUCOSE [id number] 02:45:00 Test Item Value Reference Range Interpretation Comments Gluc POC Lifscn (test code = Gluc POC 148 65-110 H Lifscn) [facility]DmmtfuhLZXPRHRCV8597-09-54 08:47:00 Test Item Value Reference Range Interpretation Comments Sodium Lvl (test code = Sodium Lvl) 143 135-145 N [facility] HospitalYwbwgnyQNGPXAFIW2564-54-56 08:47:00 Test Item Value Reference Range Interpretation Comments Glucose Lvl (test code = Glucose Lvl) 105 [facility] HospitalZntqgakRFKFPMYJL1994-87-23 08:47:00 Test Item Value Reference Range Interpretation Comments CO2 (test code = CO2) 29 24-32 N [facility] HospitalWyboiclJBNDHYTFX3168-84-00 08:47:00 Test Item Value Reference Range Interpretation Comments Chloride Lvl (test code = Chloride Lvl) 103 95-109 N [facility] HospitalZswxsslOHUQYFBYM7371-16-61 08:47:00 Test Item Value Reference Range Interpretation Comments BUN (test code = BUN) 10 7-22 N [facility] HospitalSwdxfjbKAAFZMDSQ6367-09-57 08:47:00 Test Item Value Reference Range Interpretation Comments Potassium Lvl (test code = Potassium 3.8 3.5-5.1 N Lvl) [facility] HospitalLokaxqbCWDPQRVQK0107-59-78 08:47:00 Test Item Value Reference Range Interpretation Comments Creatinine Lvl (test code = Creatinine 0.6 0.5-1.4 N Lvl) [facility] HospitalRzizvnuJRNMQVIRO6012-02-14 08:47:00 Test Item Value Reference Range Interpretation Comments Calcium Lvl (test code = Calcium Lvl) 8.5 8.5-10.5 N [facility] HospitalOzyfckqBQCNIEABX7863-06-41 08:47:00 Test Item Value Reference Range Interpretation Comments AGAP (test code = AGAP) 14.8 10.0-20.0 N [facility] StationExvfjfgYNXZIIXHRK4447-32-87 08:47:00 Test Item Value Reference Range Interpretation Comments MCH (test code = MCH) 28.9 pg 27.0-31.0 N [facility] StationOfhewwzXVPQKHNZJU9871-05-62 08:47:00 Test Item Value Reference Range Interpretation Comments MCV (test code = MCV) 82.1 81.0-99.0 N [facility] StationVqarohsZHXTTZCYQB7659-11-22 08:47:00 Test Item Value Reference Range Interpretation Comments Hct (test code = Hct) 25.9 36.0-48.0 L [facility] StationCbgahxbOZIPTJPCKR9003-54-52 08:47:00 Test Item Value Reference Range Interpretation Comments Platelet (test code = Platelet) 233 133-450 N [facility] StationBosnyjzSLWOWNXCGH5417-86-60 08:47:00 Test Item Value Reference Range Interpretation Comments RDW (test code = RDW) 14.5 11.5-14.5 N [facility] StationFcjofefGQGBHWDFQE6682-82-24 08:47:00 Test Item Value Reference Range Interpretation Comments MCHC (test code = MCHC) 35.2 32.0-36.0 N [facility] StationPhtayjcXSDMKJHPKY9077-78-83 08:47:00 Test Item Value Reference Range Interpretation Comments Hgb (test code = Hgb) 9.1 12.0-16.0 L [facility] StationWfhdlluQLGNABJOWA7802-42-66 08:47:00 Test Item Value Reference Range Interpretation Comments RBC (test code = RBC) 3.15 4.20-5.40 L [facility] StationPsokwrkVCAWWAGKGQ7483-19-53 08:47:00 Test Item Value Reference Range Interpretation Comments MPV (test code = MPV) 9.0 7.4-10.4 N [facility] StationRjyqvxzNEAVRFCVYK0551-74-94 08:47:00 Test Item Value Reference Range Interpretation Comments WBC (test code = WBC) 6.3 3.7-10.4 N [facility] StationWhaqpfzMQFMOIESAP9028-22-26 08:47:00 Test Item Value Reference Range Interpretation Comments Eosinophils # (test code 0.0 See_Comment N [A utomated message] The = Eosinophils #) system whic h generated this result tra nsmitted reference range : <=0.5. The reference r leo was not used to int erpret this result as normal/abnormal . [facility] StationBexfgdwYUGFGCVZLJ4776-27-71 08:47:00 Test Item Value Reference Range Interpretation Comments Basophils # (test code 0.0 See_Comment N [Aut omated message] The = Basophils #) system which generated this result tra nsmitted reference range : <=0.2. The reference r leo was not used to int erpret this result as normal/abnormal . [facility] StationNzmnjulMKAZOLKPXT9853-88-86 08:47:00 Test Item Value Reference Range Interpretation Comments Segs-Bands # (test code = Segs-Bands #) 3.8 1.5-8.1 N [facility] StationPdvmjfsKMVWPLRPWX0558-64-23 08:47:00 Test Item Value Reference Range Interpretation Comments Lymphocytes # (test code = Lymphocytes 2.0 1.0-5.5 N #) [facility] StationMjgdtgdBILACRKANG2742-30-58 08:47:00 Test Item Value Reference Range Interpretation Comments Basophils (test code = 0.5 See_Comment N [Aut omated message] The Basophils) system which ge nerated this result tra nsmitted reference range : <=1.0. The reference r leo was not used to int erpret this result as normal/abnormal . [facility] StationKybyfenOBRBONCPOZ4992-99-98 08:47:00 Test Item Value Reference Range Interpretation Comments Eosinophils (test code = 0.7 See_Comment N [A utomated message] The Eosinophils) system which ge nerated this result tra nsmitted reference range : <=4.0. The reference r leo was not used to int erpret this result as normal/abnormal . [facility] StationIgcfvbfOQYKYNUZML0856-82-89 08:47:00 Test Item Value Reference Range Interpretation Comments Monocytes (test code = Monocytes) 6.2 2.0-12.0 N [facility] StationMhhyqbqZSKYFOYMKW4983-62-62 08:47:00 Test Item Value Reference Range Interpretation Comments Segs (test code = Segs) 61.1 45.0-75.0 N [facility] StationIvvfbdaLCPWOCIMBI7312-29-71 08:47:00 Test Item Value Reference Range Interpretation Comments Lymphocytes (test code = Lymphocytes) 31.5 20.0-40.0 N [facility] StationBerxglgIEADBZLLNT6987-59-88 08:47:00 Test Item Value Reference Range Interpretation Comments Monocytes # (test code 0.4 See_Comment N [Aut omated message] The = Monocytes #) system which generated this result tra nsmitted reference range : <=0.8. The reference r leo was not used to int erpret this result as normal/abnormal . [facility] HospitalHaidbkbANWOTRTGZ7945-00-61 08:47:00 Test Item Value Reference Range Interpretation Comments Sodium Lvl (test code = Sodium Lvl) 143 135-145 N [facility] HospitalHreaijzWJHAPVUMB7950-35-86 08:47:00 Test Item Value Reference Range Interpretation Comments Glucose Lvl (test code = Glucose Lvl) 105 [facility] HospitalZlgfcvwLGFDFSRWD5873-84-01 08:47:00 Test Item Value Reference Range Interpretation Comments CO2 (test code = CO2) 29 24-32 N [facility] HospitalOoereowAFAQLYNSV3782-57-13 08:47:00 Test Item Value Reference Range Interpretation Comments Chloride Lvl (test code = Chloride Lvl) 103 95-109 N [facility] HospitalQqhfnafMAHBQJXBS0567-07-69 08:47:00 Test Item Value Reference Range Interpretation Comments BUN (test code = BUN) 10 7-22 N [facility] HospitalPotavuwKEEQDDPMH7200-37-62 08:47:00 Test Item Value Reference Range Interpretation Comments Potassium Lvl (test code = Potassium 3.8 3.5-5.1 N Lvl) [facility] HospitalLamyirdCCWVOLRVH9504-60-07 08:47:00 Test Item Value Reference Range Interpretation Comments Creatinine Lvl (test code = Creatinine 0.6 0.5-1.4 N Lvl) [facility] HospitalPzsikueWWBVZZQMQ5150-89-94 08:47:00 Test Item Value Reference Range Interpretation Comments Calcium Lvl (test code = Calcium Lvl) 8.5 8.5-10.5 N [facility] HospitalGhizgfcCCXINAFMJ0365-59-23 08:47:00 Test Item Value Reference Range Interpretation Comments AGAP (test code = AGAP) 14.8 10.0-20.0 N [facility] StationGqbtibgGLKRNGWCVX1927-41-71 08:47:00 Test Item Value Reference Range Interpretation Comments MCH (test code = MCH) 28.9 pg 27.0-31.0 N [facility] StationRvzdppzICBIRINIBJ8098-36-27 08:47:00 Test Item Value Reference Range Interpretation Comments MCV (test code = MCV) 82.1 81.0-99.0 N [facility] StationEgaycvxNUMCTBKZOP4988-59-12 08:47:00 Test Item Value Reference Range Interpretation Comments Hct (test code = Hct) 25.9 36.0-48.0 L [facility] StationDejciolHTWIAIUXCN7997-92-64 08:47:00 Test Item Value Reference Range Interpretation Comments Platelet (test code = Platelet) 233 133-450 N [facility] StationEvwqeyxSXKBXPAVOO3105-11-82 08:47:00 Test Item Value Reference Range Interpretation Comments RDW (test code = RDW) 14.5 11.5-14.5 N [facility] StationIxbbfqrBIRRNRLIXH3175-97-79 08:47:00 Test Item Value Reference Range Interpretation Comments MCHC (test code = MCHC) 35.2 32.0-36.0 N [facility] StationRogpvkuNRDHWRSVRB0696-74-92 08:47:00 Test Item Value Reference Range Interpretation Comments Hgb (test code = Hgb) 9.1 12.0-16.0 L [facility] StationIqkgrbsQEBWKSZNVK1839-35-55 08:47:00 Test Item Value Reference Range Interpretation Comments RBC (test code = RBC) 3.15 4.20-5.40 L [facility] StationLfnhsloHVFZPTWABG1594-77-90 08:47:00 Test Item Value Reference Range Interpretation Comments MPV (test code = MPV) 9.0 7.4-10.4 N [facility] StationNapnjrlXJRGHWHZET6044-30-46 08:47:00 Test Item Value Reference Range Interpretation Comments WBC (test code = WBC) 6.3 3.7-10.4 N [facility] StationBjkbjliYJDPHVJTRU7967-14-58 08:47:00 Test Item Value Reference Range Interpretation Comments Eosinophils # (test code 0.0 See_Comment N [A utomated message] The = Eosinophils #) system whic h generated this result tra nsmitted reference range : <=0.5. The reference r leo was not used to int erpret this result as normal/abnormal . [facility] StationXhtwqkgQKDYGPSTLT2096-27-21 08:47:00 Test Item Value Reference Range Interpretation Comments Basophils # (test code 0.0 See_Comment N [Aut omated message] The = Basophils #) system which generated this result tra nsmitted reference range : <=0.2. The reference r leo was not used to int erpret this result as normal/abnormal . [facility] StationRulnxfzEMXCQHVRTC0410-67-93 08:47:00 Test Item Value Reference Range Interpretation Comments Segs-Bands # (test code = Segs-Bands #) 3.8 1.5-8.1 N [facility] StationVyguyzyTLYEIYSVRF7253-15-96 08:47:00 Test Item Value Reference Range Interpretation Comments Lymphocytes # (test code = Lymphocytes 2.0 1.0-5.5 N #) [facility] StationEsruaciGPQCSYYTAZ4175-44-75 08:47:00 Test Item Value Reference Range Interpretation Comments Basophils (test code = 0.5 See_Comment N [Aut omated message] The Basophils) system which ge nerated this result tra nsmitted reference range : <=1.0. The reference r leo was not used to int erpret this result as normal/abnormal . [facility] StationNqmswiqQSZTKQEVWO2124-50-51 08:47:00 Test Item Value Reference Range Interpretation Comments Eosinophils (test code = 0.7 See_Comment N [A utomated message] The Eosinophils) system which ge nerated this result tra nsmitted reference range : <=4.0. The reference r leo was not used to int erpret this result as normal/abnormal . [facility] StationZbubnrzDCZHCGPVBQ6554-91-03 08:47:00 Test Item Value Reference Range Interpretation Comments Monocytes (test code = Monocytes) 6.2 2.0-12.0 N [facility] StationJskxboiKCMDIDRIMZ1261-89-54 08:47:00 Test Item Value Reference Range Interpretation Comments Segs (test code = Segs) 61.1 45.0-75.0 N [facility] StationPdtazxeHENOSRFKNV1660-98-34 08:47:00 Test Item Value Reference Range Interpretation Comments Lymphocytes (test code = Lymphocytes) 31.5 20.0-40.0 N [facility] StationStayyclFTOXNVIIFZ1341-96-91 08:47:00 Test Item Value Reference Range Interpretation Comments Monocytes # (test code 0.4 See_Comment N [Aut omated message] The = Monocytes #) system which generated this result tra nsmitted reference range : <=0.8. The reference r leo was not used to int erpret this result as normal/abnormal . [facility] HospitalNczdsgeENXDZOXYZ6090-28-73 08:47:00 Test Item Value Reference Range Interpretation Comments Sodium Lvl (test code = Sodium Lvl) 143 135-145 N [facility] HospitalUozflzrTGWYSBAPC2468-03-62 08:47:00 Test Item Value Reference Range Interpretation Comments Glucose Lvl (test code = Glucose Lvl) 105 [facility] HospitalBnkcreyYYGWDQJCM5148-30-14 08:47:00 Test Item Value Reference Range Interpretation Comments CO2 (test code = CO2) 29 24-32 N [facility] HospitalXylpoizFCSRYGIJF6503-04-15 08:47:00 Test Item Value Reference Range Interpretation Comments Chloride Lvl (test code = Chloride Lvl) 103 95-109 N [facility] HospitalKkhmqqiYLKAHBGTA8439-92-12 08:47:00 Test Item Value Reference Range Interpretation Comments BUN (test code = BUN) 10 7-22 N [facility] HospitalYrfrvmuAACPXOCGH5631-83-68 08:47:00 Test Item Value Reference Range Interpretation Comments Potassium Lvl (test code = Potassium 3.8 3.5-5.1 N Lvl) [facility] HospitalEdgmdfqEURPSQKWU9707-18-98 08:47:00 Test Item Value Reference Range Interpretation Comments Creatinine Lvl (test code = Creatinine 0.6 0.5-1.4 N Lvl) [facility] HospitalWodwklsVJNYJONHI9457-05-04 08:47:00 Test Item Value Reference Range Interpretation Comments Calcium Lvl (test code = Calcium Lvl) 8.5 8.5-10.5 N [facility] HospitalWzdxkbiIVZKOIYJG4177-75-29 08:47:00 Test Item Value Reference Range Interpretation Comments AGAP (test code = AGAP) 14.8 10.0-20.0 N [facility] StationWlaniwmHVJDCWIXFV8777-48-47 08:47:00 Test Item Value Reference Range Interpretation Comments MCH (test code = MCH) 28.9 pg 27.0-31.0 N [facility] StationSclwzwdQRGOEXSDHU8609-34-02 08:47:00 Test Item Value Reference Range Interpretation Comments MCV (test code = MCV) 82.1 81.0-99.0 N [facility] StationLalltcpOAHPGBEIMB2765-87-39 08:47:00 Test Item Value Reference Range Interpretation Comments Hct (test code = Hct) 25.9 36.0-48.0 L [facility] StationMdalgddTXYFCCCYNC3372-83-28 08:47:00 Test Item Value Reference Range Interpretation Comments Platelet (test code = Platelet) 233 133-450 N [facility] StationQjeubbcVCWIAHXFZO4179-42-23 08:47:00 Test Item Value Reference Range Interpretation Comments RDW (test code = RDW) 14.5 11.5-14.5 N [facility] StationVqltqktQZSFKSECYM8986-79-96 08:47:00 Test Item Value Reference Range Interpretation Comments MCHC (test code = MCHC) 35.2 32.0-36.0 N [facility] StationVtmswnkIGHMJYGBID6468-30-04 08:47:00 Test Item Value Reference Range Interpretation Comments Hgb (test code = Hgb) 9.1 12.0-16.0 L [facility] StationDkzkmkqAOOQRYYVSX8979-61-41 08:47:00 Test Item Value Reference Range Interpretation Comments RBC (test code = RBC) 3.15 4.20-5.40 L [facility] StationSxeppixUIFJTURKFU9083-00-08 08:47:00 Test Item Value Reference Range Interpretation Comments MPV (test code = MPV) 9.0 7.4-10.4 N [facility] StationEyaimbtAOUUWOVKJU1100-38-66 08:47:00 Test Item Value Reference Range Interpretation Comments WBC (test code = WBC) 6.3 3.7-10.4 N [facility] StationArqbuhwFEUOJQKHPG5141-25-24 08:47:00 Test Item Value Reference Range Interpretation Comments Eosinophils # (test code 0.0 See_Comment N [A utomated message] The = Eosinophils #) system whic h generated this result tra nsmitted reference range : <=0.5. The reference r leo was not used to int erpret this result as normal/abnormal . [facility] StationHdotmyvRTIUGABCSH3284-46-27 08:47:00 Test Item Value Reference Range Interpretation Comments Basophils # (test code 0.0 See_Comment N [Aut omated message] The = Basophils #) system which generated this result tra nsmitted reference range : <=0.2. The reference r leo was not used to int erpret this result as normal/abnormal . [facility] [facility] [place]IgxgbvnPETUYIGULS5136-87-58 08:47:00 Test Item Value Reference Range Interpretation Comments Segs-Bands # (test code = Segs-Bands #) 3.8 1.5-8.1 N [facility] StationVahcwegSYGRLVPUFA8122-79-92 08:47:00 Test Item Value Reference Range Interpretation Comments Lymphocytes # (test code = Lymphocytes 2.0 1.0-5.5 N #) [facility] StationSvjdeaqAQBQIGKAKP4715-34-42 08:47:00 Test Item Value Reference Range Interpretation Comments Basophils (test code = 0.5 See_Comment N [Aut omated message] The Basophils) system which ge nerated this result tra nsmitted reference range : <=1.0. The reference r leo was not used to int erpret this result as normal/abnormal . [facility] StationQhgjdukATHJXJGOAE9859-56-32 08:47:00 Test Item Value Reference Range Interpretation Comments Eosinophils (test code = 0.7 See_Comment N [A utomated message] The Eosinophils) system which ge nerated this result tra nsmitted reference range : <=4.0. The reference r leo was not used to int erpret this result as normal/abnormal . [facility] StationWdanogxEYTSVRFMQV3467-16-91 08:47:00 Test Item Value Reference Range Interpretation Comments Monocytes (test code = Monocytes) 6.2 2.0-12.0 N [facility] StationDiklajfJBRCTBVCML6373-96-82 08:47:00 Test Item Value Reference Range Interpretation Comments Segs (test code = Segs) 61.1 45.0-75.0 N [facility] StationPocrexoLWBEMLQDWN3144-25-31 08:47:00 Test Item Value Reference Range Interpretation Comments Lymphocytes (test code = Lymphocytes) 31.5 20.0-40.0 N [facility] StationJmtttixOKDHFQGKSH6922-29-85 08:47:00 Test Item Value Reference Range Interpretation Comments Monocytes # (test code 0.4 See_Comment N [Aut omated message] The = Monocytes #) system which generated this result tra nsmitted reference range : <=0.8. The reference r leo was not used to int erpret this result as normal/abnormal . [facility]SewldtfKGKYZTCID8331-16-34 08:47:00 Test Item Value Reference Range Interpretation Comments Sodium Lvl (test code = Sodium Lvl) 143 135-145 N [facility] HospitalUgygxhjAUPVBRETF7158-50-18 08:47:00 Test Item Value Reference Range Interpretation Comments Glucose Lvl (test code = Glucose Lvl) 105 [facility] HospitalZsyymarQFLUYZENA8670-56-39 08:47:00 Test Item Value Reference Range Interpretation Comments CO2 (test code = CO2) 29 24-32 N [facility] HospitalEjszbgcIXCWTVLHH2959-75-08 08:47:00 Test Item Value Reference Range Interpretation Comments Chloride Lvl (test code = Chloride Lvl) 103 95-109 N [facility] HospitalWbslrmaZCHDYBHHC4820-98-11 08:47:00 Test Item Value Reference Range Interpretation Comments BUN (test code = BUN) 10 7-22 N [facility] HospitalHdorsiqLCHURVHPM1344-03-17 08:47:00 Test Item Value Reference Range Interpretation Comments Potassium Lvl (test code = Potassium 3.8 3.5-5.1 N Lvl) [facility] HospitalExeymbxQRSYPPWIM8276-18-62 08:47:00 Test Item Value Reference Range Interpretation Comments Creatinine Lvl (test code = Creatinine 0.6 0.5-1.4 N Lvl) [facility] HospitalWyvezjnLBSZXBTHX9026-51-14 08:47:00 Test Item Value Reference Range Interpretation Comments Calcium Lvl (test code = Calcium Lvl) 8.5 8.5-10.5 N [facility] HospitalDdxqswtQVEDASUSR9071-84-53 08:47:00 Test Item Value Reference Range Interpretation Comments AGAP (test code = AGAP) 14.8 10.0-20.0 N [facility] StationOsnjbbpIGYLBWSBHL4746-33-89 08:47:00 Test Item Value Reference Range Interpretation Comments MCH (test code = MCH) 28.9 pg 27.0-31.0 N [facility] StationQtoboptDMPTGUZBJZ6522-42-96 08:47:00 Test Item Value Reference Range Interpretation Comments MCV (test code = MCV) 82.1 81.0-99.0 N [facility] StationPltuyzjEBPHMWJRVM6508-24-11 08:47:00 Test Item Value Reference Range Interpretation Comments Hct (test code = Hct) 25.9 36.0-48.0 L [facility] StationQghbbjnALBFHEBESF9012-90-92 08:47:00 Test Item Value Reference Range Interpretation Comments Platelet (test code = Platelet) 233 133-450 N [facility] StationDvbpeijAKMNXBQJUM5246-85-90 08:47:00 Test Item Value Reference Range Interpretation Comments RDW (test code = RDW) 14.5 11.5-14.5 N [facility] StationIgrxgqmOQVWRDBWSS3836-25-74 08:47:00 Test Item Value Reference Range Interpretation Comments MCHC (test code = MCHC) 35.2 32.0-36.0 N [facility] StationMkwxyrtCVVCRMRVAB3855-88-18 08:47:00 Test Item Value Reference Range Interpretation Comments Hgb (test code = Hgb) 9.1 12.0-16.0 L [facility] StationWemfyajIKIPEIHZEK6922-64-28 08:47:00 Test Item Value Reference Range Interpretation Comments RBC (test code = RBC) 3.15 4.20-5.40 L [facility] StationKkesnzbZNUSFFXQWY4946-25-16 08:47:00 Test Item Value Reference Range Interpretation Comments MPV (test code = MPV) 9.0 7.4-10.4 N [facility] StationGfmtomqVELNGWXBXI3116-12-82 08:47:00 Test Item Value Reference Range Interpretation Comments WBC (test code = WBC) 6.3 3.7-10.4 N [facility] StationPlkjwwfGAGDKDLRSZ3807-62-51 08:47:00 Test Item Value Reference Range Interpretation Comments Eosinophils # (test code 0.0 See_Comment N [A utomated message] The = Eosinophils #) system whic h generated this result tra nsmitted reference range : <=0.5. The reference r leo was not used to int erpret this result as normal/abnormal . [facility] StationDiqaulxMKUCAIDGZF6417-87-24 08:47:00 Test Item Value Reference Range Interpretation Comments Basophils # (test code 0.0 See_Comment N [Aut omated message] The = Basophils #) system which generated this result tra nsmitted reference range : <=0.2. The reference r leo was not used to int erpret this result as normal/abnormal . [facility] StationFxhsrpqUCXWSGMZHT2642-88-43 08:47:00 Test Item Value Reference Range Interpretation Comments Segs-Bands # (test code = Segs-Bands #) 3.8 1.5-8.1 N [facility] StationOovjbpkQFUROFSPPR5071-32-12 08:47:00 Test Item Value Reference Range Interpretation Comments Lymphocytes # (test code = Lymphocytes 2.0 1.0-5.5 N #) [facility] StationLmmdhdrJVDLREEBBI6203-68-12 08:47:00 Test Item Value Reference Range Interpretation Comments Basophils (test code = 0.5 See_Comment N [Aut omated message] The Basophils) system which ge nerated this result tra nsmitted reference range : <=1.0. The reference r leo was not used to int erpret this result as normal/abnormal . [facility] StationVtvsryaUOWXHLNCLB9162-50-43 08:47:00 Test Item Value Reference Range Interpretation Comments Eosinophils (test code = 0.7 See_Comment N [A utomated message] The Eosinophils) system which ge nerated this result tra nsmitted reference range : <=4.0. The reference r leo was not used to int erpret this result as normal/abnormal . [facility] StationNwpjbcwVVXNFPYXJK8386-97-56 08:47:00 Test Item Value Reference Range Interpretation Comments Monocytes (test code = Monocytes) 6.2 2.0-12.0 N [facility] StationOpbeuefBJHCYPWLNN1776-99-60 08:47:00 Test Item Value Reference Range Interpretation Comments Segs (test code = Segs) 61.1 45.0-75.0 N [facility] StationXkklrdyCNTGPSPQDW3975-44-02 08:47:00 Test Item Value Reference Range Interpretation Comments Lymphocytes (test code = Lymphocytes) 31.5 20.0-40.0 N [facility] StationPrucojiBYPWKGCJXN2029-70-57 08:47:00 Test Item Value Reference Range Interpretation Comments Monocytes # (test code 0.4 See_Comment N [Aut omated message] The = Monocytes #) system which generated this result tra nsmitted reference range : <=0.8. The reference r leo was not used to int erpret this result as normal/abnormal . [facility] HospitalPoqfcemMIOSTEGLZ3913-81-86 08:47:00 Test Item Value Reference Range Interpretation Comments Sodium Lvl (test code = Sodium Lvl) 143 135-145 N [facility] HospitalEtuqyvzXSOXOEZFG9049-29-03 08:47:00 Test Item Value Reference Range Interpretation Comments Glucose Lvl (test code = Glucose Lvl) 105 [facility] HospitalBwlpayoXOBODABXD8781-98-39 08:47:00 Test Item Value Reference Range Interpretation Comments CO2 (test code = CO2) 29 24-32 N [facility] HospitalQfenzlbUUBQXAHUX8365-51-34 08:47:00 Test Item Value Reference Range Interpretation Comments Chloride Lvl (test code = Chloride Lvl) 103 95-109 N [facility] HospitalJbzsogrIUTKOXCII4170-44-87 08:47:00 Test Item Value Reference Range Interpretation Comments BUN (test code = BUN) 10 7-22 N [facility] HospitalQzsybkvZEVPHHWKI2518-12-13 08:47:00 Test Item Value Reference Range Interpretation Comments Potassium Lvl (test code = Potassium 3.8 3.5-5.1 N Lvl) [facility] HospitalIzsbwioMSRGCTHWZ1176-62-89 08:47:00 Test Item Value Reference Range Interpretation Comments Creatinine Lvl (test code = Creatinine 0.6 0.5-1.4 N Lvl) [facility] HospitalQxmddvuZXGUSCJFP7267-29-07 08:47:00 Test Item Value Reference Range Interpretation Comments Calcium Lvl (test code = Calcium Lvl) 8.5 8.5-10.5 N [facility] HospitalHmqlwthUWFKCHPPH6684-82-38 08:47:00 Test Item Value Reference Range Interpretation Comments AGAP (test code = AGAP) 14.8 10.0-20.0 N [facility] StationYpekrxtKTXAZCRNIN0740-39-33 08:47:00 Test Item Value Reference Range Interpretation Comments MCH (test code = MCH) 28.9 pg 27.0-31.0 N [facility] StationMfccqxrJONBAJQHQN8517-29-42 08:47:00 Test Item Value Reference Range Interpretation Comments MCV (test code = MCV) 82.1 81.0-99.0 N [facility] StationVntjjinKEVIPLOZFH6125-39-43 08:47:00 Test Item Value Reference Range Interpretation Comments Hct (test code = Hct) 25.9 36.0-48.0 L [facility] StationYvxrjqlSSVMPHTFMK5820-83-42 08:47:00 Test Item Value Reference Range Interpretation Comments Platelet (test code = Platelet) 233 133-450 N [facility] StationNmzgtuiVGQBWNNYWP2510-87-32 08:47:00 Test Item Value Reference Range Interpretation Comments RDW (test code = RDW) 14.5 11.5-14.5 N [facility] StationVturykuCQZHBAWFYU2085-53-43 08:47:00 Test Item Value Reference Range Interpretation Comments MCHC (test code = MCHC) 35.2 32.0-36.0 N [facility] StationVrttmgrHMPPLLVTEX4155-49-33 08:47:00 Test Item Value Reference Range Interpretation Comments Hgb (test code = Hgb) 9.1 12.0-16.0 L [facility] StationFpvufldIYNGUBPILP7650-79-11 08:47:00 Test Item Value Reference Range Interpretation Comments RBC (test code = RBC) 3.15 4.20-5.40 L [facility] StationXekkbaoOGFFGOPPIN3963-37-46 08:47:00 Test Item Value Reference Range Interpretation Comments MPV (test code = MPV) 9.0 7.4-10.4 N [facility] StationOibwtapHMLLLSHYUP1728-06-38 08:47:00 Test Item Value Reference Range Interpretation Comments WBC (test code = WBC) 6.3 3.7-10.4 N [facility] StationWedyyfoZEGITXLIBF5842-14-44 08:47:00 Test Item Value Reference Range Interpretation Comments Eosinophils # (test code 0.0 See_Comment N [A utomated message] The = Eosinophils #) system whic h generated this result tra nsmitted reference range : <=0.5. The reference r leo was not used to int erpret this result as normal/abnormal . [facility] StationHgyfbdvLGSLSVQHXU0923-21-92 08:47:00 Test Item Value Reference Range Interpretation Comments Basophils # (test code 0.0 See_Comment N [Aut omated message] The = Basophils #) system which generated this result tra nsmitted reference range : <=0.2. The reference r leo was not used to int erpret this result as normal/abnormal . [facility] StationGjtpzhrUTEHAHALHG7652-83-67 08:47:00 Test Item Value Reference Range Interpretation Comments Segs-Bands # (test code = Segs-Bands #) 3.8 1.5-8.1 N [facility] StationSnfohewKKLCKLFRDF9289-44-80 08:47:00 Test Item Value Reference Range Interpretation Comments Lymphocytes # (test code = Lymphocytes 2.0 1.0-5.5 N #) [facility] StationKpvhxetMBUMHQTKLQ0296-68-30 08:47:00 Test Item Value Reference Range Interpretation Comments Basophils (test code = 0.5 See_Comment N [Aut omated message] The Basophils) system which ge nerated this result tra nsmitted reference range : <=1.0. The reference r leo was not used to int erpret this result as normal/abnormal . [facility] StationNundulcQTZGUGELTE4043-68-46 08:47:00 Test Item Value Reference Range Interpretation Comments Eosinophils (test code = 0.7 See_Comment N [A utomated message] The Eosinophils) system which ge nerated this result tra nsmitted reference range : <=4.0. The reference r leo was not used to int erpret this result as normal/abnormal . [facility] StationJeaocmoNUODNYOSFY0811-71-00 08:47:00 Test Item Value Reference Range Interpretation Comments Monocytes (test code = Monocytes) 6.2 2.0-12.0 N [facility] StationJyfsoyrARKSXBTBQL3927-23-34 08:47:00 Test Item Value Reference Range Interpretation Comments Segs (test code = Segs) 61.1 45.0-75.0 N [facility] StationOsisgyaBXUGDIRILR5615-31-98 08:47:00 Test Item Value Reference Range Interpretation Comments Lymphocytes (test code = Lymphocytes) 31.5 20.0-40.0 N [facility] StationBqsgrxqQSEDXHRAAN9252-26-81 08:47:00 Test Item Value Reference Range Interpretation Comments Monocytes # (test code 0.4 See_Comment N [Aut omated message] The = Monocytes #) system which generated this result tra nsmitted reference range : <=0.8. The reference r leo was not used to int erpret this result as normal/abnormal . [facility] HospitalOoznrmvSRDBFFNMG9063-81-47 10:54:00 Test Item Value Reference Range Interpretation Comments CO2 (test code = CO2) 27 24-32 N [facility] HospitalRnihnqmAUJBEISIC0227-63-08 10:54:00 Test Item Value Reference Range Interpretation Comments Chloride Lvl (test code = Chloride Lvl) 104 95-109 N [facility] HospitalSvofwktVFGFDJJWT5812-91-44 10:54:00 Test Item Value Reference Range Interpretation Comments Creatinine Lvl (test code = Creatinine 0.5 0.5-1.4 N Lvl) [facility] HospitalGmlmogpBKZJMWGJV8195-06-87 10:54:00 Test Item Value Reference Range Interpretation Comments BUN (test code = BUN) 10 7-22 N [facility] HospitalUbewkydVHSKJWIFV5514-54-52 10:54:00 Test Item Value Reference Range Interpretation Comments Potassium Lvl (test code = Potassium 4.1 3.5-5.1 N Lvl) [facility] HospitalBnneypdWSSYGQDKK7178-70-89 10:54:00 Test Item Value Reference Range Interpretation Comments Sodium Lvl (test code = Sodium Lvl) 141 135-145 N [facility] HospitalSillbfnUJXTVHMAC5833-37-97 10:54:00 Test Item Value Reference Range Interpretation Comments Glucose Lvl (test code = Glucose Lvl) 83 [facility] HospitalRsuffhfRRVPMBYZQ1040-07-92 10:54:00 Test Item Value Reference Range Interpretation Comments Calcium Lvl (test code = Calcium Lvl) 8.4 8.5-10.5 L [facility] HospitalGmwuegcIAAQUYJYE9909-82-49 10:54:00 Test Item Value Reference Range Interpretation Comments AGAP (test code = AGAP) 14.1 10.0-20.0 N [facility] StationOhbjrdzLEJHMVKQKI8117-86-50 10:54:00 Test Item Value Reference Range Interpretation Comments Hct (test code = Hct) 35.5 36.0-48.0 L [facility] StationVdfuafsXPIUPHMXHI6987-57-81 10:54:00 Test Item Value Reference Range Interpretation Comments WBC (test code = WBC) 4.7 3.7-10.4 N [facility] StationNyaipomEBBTWXBABY0761-17-62 10:54:00 Test Item Value Reference Range Interpretation Comments MCV (test code = MCV) 92.6 81.0-99.0 N [facility] StationZtdixdhMRAQJBXRQH8364-71-24 10:54:00 Test Item Value Reference Range Interpretation Comments MCH (test code = MCH) 31.4 pg 27.0-31.0 H [facility] StationUcpzqxtXNLGXZLHTT3902-10-42 10:54:00 Test Item Value Reference Range Interpretation Comments RBC (test code = RBC) 3.84 4.20-5.40 L [facility] StationJyegznmYZGLWIPPGE9681-21-01 10:54:00 Test Item Value Reference Range Interpretation Comments Hgb (test code = Hgb) 12.1 12.0-16.0 N [facility] StationXjswmuvNHTSUGLZHO9302-66-60 10:54:00 Test Item Value Reference Range Interpretation Comments Platelet (test code = Platelet) 287 133-450 N [facility] StationFbypotyYGNZNZPYAE5132-11-48 10:54:00 Test Item Value Reference Range Interpretation Comments RDW (test code = RDW) 12.7 11.5-14.5 N [facility] StationUixhzigGZLNJJZURZ4315-89-97 10:54:00 Test Item Value Reference Range Interpretation Comments MCHC (test code = MCHC) 33.9 32.0-36.0 N [facility] StationWyynsrxYMRBQNBRBI6884-77-23 10:54:00 Test Item Value Reference Range Interpretation Comments MPV (test code = MPV) 7.2 7.4-10.4 [facility]2012-03-19 10:54:00 Test Item Value Reference Range Interpretation Comments INR (test code = INR) 0.95 0.85-1.17 N [facility] StationFvtkuicWRIWWDWLUG1134-46-89 10:54:00 Test Item Value Reference Range Interpretation Comments PT (test code = PT) 12.7 s 12.0-14.7 N [facility] StationBjhfdchVUXHXUQUFG5299-63-66 10:54:00 Test Item Value Reference Range Interpretation Comments PTT (test code = PTT) 28.5 s 22.9-35.8 N [facility] StationIqteaydOMFVTBBCJD0282-74-74 10:54:00 Test Item Value Reference Range Interpretation Comments Eosinophils # (test code 0.1 See_Comment N [A utomated message] The = Eosinophils #) system whic h generated this result tra nsmitted reference range : <=0.5. The reference r leo was not used to int erpret this result as normal/abnormal . [facility] StationNjxsawkRMMWIIEUMO4107-31-47 10:54:00 Test Item Value Reference Range Interpretation Comments Basophils # (test code 0.0 See_Comment N [Aut omated message] The = Basophils #) system which generated this result tra nsmitted reference range : <=0.2. The reference r leo was not used to int erpret this result as normal/abnormal . [facility] StationVpeaxzlWGLOUQIQBF6727-48-72 10:54:00 Test Item Value Reference Range Interpretation Comments Basophils (test code = 0.4 See_Comment N [Aut omated message] The Basophils) system which ge nerated this result tra nsmitted reference range : <=1.0. The reference r leo was not used to int erpret this result as normal/abnormal . [facility] StationFzdkmfvUGZMWZSQMC1305-94-72 10:54:00 Test Item Value Reference Range Interpretation Comments Segs-Bands # (test code = Segs-Bands #) 2.1 1.5-8.1 N [facility] StationRttqidcGDDTURLOZW0448-59-99 10:54:00 Test Item Value Reference Range Interpretation Comments Monocytes (test code = Monocytes) 9.0 2.0-12.0 N [facility] StationLdtydouFROEPFQAIF4616-29-93 10:54:00 Test Item Value Reference Range Interpretation Comments Eosinophils (test code = 2.4 See_Comment N [A utomated message] The Eosinophils) system which ge nerated this result tra nsmitted reference range : <=4.0. The reference r leo was not used to int erpret this result as normal/abnormal . [facility] StationBvdndupBGRFEGVHJV0394-90-47 10:54:00 Test Item Value Reference Range Interpretation Comments Monocytes # (test code 0.4 See_Comment N [Aut omated message] The = Monocytes #) system which generated this result tra nsmitted reference range : <=0.8. The reference r leo was not used to int erpret this result as normal/abnormal . [facility] StationZrypviqRLZRTYDVNB8809-42-86 10:54:00 Test Item Value Reference Range Interpretation Comments Lymphocytes # (test code = Lymphocytes 2.0 1.0-5.5 N #) [facility] StationIpatlbpZUEVSDAOSN9164-98-37 10:54:00 Test Item Value Reference Range Interpretation Comments Lymphocytes (test code = Lymphocytes) 42.8 20.0-40.0 H [facility] StationAhqtvsrUGIUJYEWLZ7240-26-31 10:54:00 Test Item Value Reference Range Interpretation Comments Segs (test code = Segs) 45.4 45.0-75.0 N [facility] HospitalLzemqdrKRVNKSMOZ6982-81-83 10:54:00 Test Item Value Reference Range Interpretation Comments CO2 (test code = CO2) 27 24-32 N [facility] HospitalHnonupcTVATFACOG3770-62-37 10:54:00 Test Item Value Reference Range Interpretation Comments Chloride Lvl (test code = Chloride Lvl) 104 95-109 N [facility] HospitalLcnaqbsGJYUXDOLV3839-07-42 10:54:00 Test Item Value Reference Range Interpretation Comments Creatinine Lvl (test code = Creatinine 0.5 0.5-1.4 N Lvl) [facility] HospitalFwyppmbGKHNHTHTW3593-44-75 10:54:00 Test Item Value Reference Range Interpretation Comments BUN (test code = BUN) 10 7-22 N [facility] HospitalSrmorwsDDXWYXUPN6695-48-51 10:54:00 Test Item Value Reference Range Interpretation Comments Potassium Lvl (test code = Potassium 4.1 3.5-5.1 N Lvl) [facility] HospitalApzdmyyBVTXDIQAH6871-72-58 10:54:00 Test Item Value Reference Range Interpretation Comments Sodium Lvl (test code = Sodium Lvl) 141 135-145 N [facility] HospitalNfjwtljIKZMXHWSG7417-01-20 10:54:00 Test Item Value Reference Range Interpretation Comments Glucose Lvl (test code = Glucose Lvl) 83 [facility] HospitalUjqkkfsHMDXHCTHW7281-69-01 10:54:00 Test Item Value Reference Range Interpretation Comments Calcium Lvl (test code = Calcium Lvl) 8.4 8.5-10.5 L [facility] HospitalDnomysdRDGSYZMUV9578-85-22 10:54:00 Test Item Value Reference Range Interpretation Comments AGAP (test code = AGAP) 14.1 10.0-20.0 N [facility] StationUegegloGZHCPKHRIY7564-07-59 10:54:00 Test Item Value Reference Range Interpretation Comments Hct (test code = Hct) 35.5 36.0-48.0 L [facility] StationLjxrzvuLFTTOZGXIM5038-94-10 10:54:00 Test Item Value Reference Range Interpretation Comments WBC (test code = WBC) 4.7 3.7-10.4 N [facility] StationEwozpnoYQKRGHUGKQ7935-10-40 10:54:00 Test Item Value Reference Range Interpretation Comments MCV (test code = MCV) 92.6 81.0-99.0 N [facility] StationHbubzolGGGXAMVQCT2497-01-01 10:54:00 Test Item Value Reference Range Interpretation Comments MCH (test code = MCH) 31.4 pg 27.0-31.0 H [facility] StationIifokniVMIHKOVVJF3606-14-30 10:54:00 Test Item Value Reference Range Interpretation Comments RBC (test code = RBC) 3.84 4.20-5.40 L [facility] StationEzyxrjrNZDNDNMHXI0943-30-48 10:54:00 Test Item Value Reference Range Interpretation Comments Hgb (test code = Hgb) 12.1 12.0-16.0 N [facility] StationZrbwffyLXYAWZWGUV2965-35-74 10:54:00 Test Item Value Reference Range Interpretation Comments Platelet (test code = Platelet) 287 133-450 N [facility] StationJjwlidoDWRXLYVPPK8619-30-09 10:54:00 Test Item Value Reference Range Interpretation Comments RDW (test code = RDW) 12.7 11.5-14.5 N [facility] StationOmsawfiRUOOKBLAXS6577-45-48 10:54:00 Test Item Value Reference Range Interpretation Comments MCHC (test code = MCHC) 33.9 32.0-36.0 N [facility] StationWadopeaLYMDKXEPFP1959-64-96 10:54:00 Test Item Value Reference Range Interpretation Comments MPV (test code = MPV) 7.2 7.4-10.4 L [facility] StationUdanucuSZFTWCAPRY3769-31-35 10:54:00 Test Item Value Reference Range Interpretation Comments INR (test code = INR) 0.95 0.85-1.17 N [facility] StationGwfnzhlTRHRXGPGKO9403-04-22 10:54:00 Test Item Value Reference Range Interpretation Comments PT (test code = PT) 12.7 s 12.0-14.7 N [facility] StationOrsvomyBYRGSHRUZB6168-29-04 10:54:00 Test Item Value Reference Range Interpretation Comments PTT (test code = PTT) 28.5 s 22.9-35.8 N [facility] StationYvbxevkTIKYWVLLYA3983-03-43 10:54:00 Test Item Value Reference Range Interpretation Comments Eosinophils # (test code 0.1 See_Comment N [A utomated message] The = Eosinophils #) system whic h generated this result tra nsmitted reference range : <=0.5. The reference r leo was not used to int erpret this result as normal/abnormal . [facility] StationCfyjmyjHEOJFVNSIR6241-15-43 10:54:00 Test Item Value Reference Range Interpretation Comments Basophils # (test code 0.0 See_Comment N [Aut omated message] The = Basophils #) system which generated this result tra nsmitted reference range : <=0.2. The reference r leo was not used to int erpret this result as normal/abnormal . [facility] StationVkczuerYHIILBDUTD3050-49-91 10:54:00 Test Item Value Reference Range Interpretation Comments Basophils (test code = 0.4 See_Comment N [Aut omated message] The Basophils) system which ge nerated this result tra nsmitted reference range : <=1.0. The reference r leo was not used to int erpret this result as normal/abnormal . [facility] StationLxnuiwlDQBPFMTEKI3832-97-18 10:54:00 Test Item Value Reference Range Interpretation Comments Segs-Bands # (test code = Segs-Bands #) 2.1 1.5-8.1 N [facility] StationQnkuanzVUDCAHKHET1676-05-72 10:54:00 Test Item Value Reference Range Interpretation Comments Monocytes (test code = Monocytes) 9.0 2.0-12.0 N [facility] StationAvhuxzbOBSQDNCXYR8731-68-87 10:54:00 Test Item Value Reference Range Interpretation Comments Eosinophils (test code = 2.4 See_Comment N [A utomated message] The Eosinophils) system which ge nerated this result tra nsmitted reference range : <=4.0. The reference r leo was not used to int erpret this result as normal/abnormal . [facility] StationAlosrxlVDHINEXBXV1805-52-96 10:54:00 Test Item Value Reference Range Interpretation Comments Monocytes # (test code 0.4 See_Comment N [Aut omated message] The = Monocytes #) system which generated this result tra nsmitted reference range : <=0.8. The reference r leo was not used to int erpret this result as normal/abnormal . [facility] StationVknyadbEEGRTCGADI2517-76-97 10:54:00 Test Item Value Reference Range Interpretation Comments Lymphocytes # (test code = Lymphocytes 2.0 1.0-5.5 N #) [facility] StationWoltxuoBWKFMQTRPE2357-57-48 10:54:00 Test Item Value Reference Range Interpretation Comments Lymphocytes (test code = Lymphocytes) 42.8 20.0-40.0 H [facility] StationTjockytGWXMJSQMZI0454-60-82 10:54:00 Test Item Value Reference Range Interpretation Comments Segs (test code = Segs) 45.4 45.0-75.0 N [facility]RpeqgfzRAUPDPTAM3291-02-92 10:54:00 Test Item Value Reference Range Interpretation Comments CO2 (test code = CO2) 27 24-32 N [facility] HospitalWsimfghRNTBIMQLQ2384-03-17 10:54:00 Test Item Value Reference Range Interpretation Comments Chloride Lvl (test code = Chloride Lvl) 104 95-109 N [facility] HospitalKxvcarbQWJYAKHLC1167-27-12 10:54:00 Test Item Value Reference Range Interpretation Comments Creatinine Lvl (test code = Creatinine 0.5 0.5-1.4 N Lvl) [facility] HospitalDgbjokvOLKRUXDKA4639-69-34 10:54:00 Test Item Value Reference Range Interpretation Comments BUN (test code = BUN) 10 7-22 N [facility] HospitalAscgsuiLCEPFLCCV5142-46-36 10:54:00 Test Item Value Reference Range Interpretation Comments Potassium Lvl (test code = Potassium 4.1 3.5-5.1 N Lvl) [facility] HospitalVsautleNDHYFEVQF8452-87-60 10:54:00 Test Item Value Reference Range Interpretation Comments Sodium Lvl (test code = Sodium Lvl) 141 135-145 N [facility] HospitalQiakhdjTYDIYIPKC5947-13-17 10:54:00 Test Item Value Reference Range Interpretation Comments Glucose Lvl (test code = Glucose Lvl) 83 [facility] HospitalAsxsjpdFOAOULYMC3325-59-12 10:54:00 Test Item Value Reference Range Interpretation Comments Calcium Lvl (test code = Calcium Lvl) 8.4 8.5-10.5 L [facility] HospitalOudbrtzLPEBNRBUF9646-56-29 10:54:00 Test Item Value Reference Range Interpretation Comments AGAP (test code = AGAP) 14.1 10.0-20.0 N [facility] StationOsrloeqGPVRWSGEPZ9952-31-56 10:54:00 Test Item Value Reference Range Interpretation Comments Hct (test code = Hct) 35.5 36.0-48.0 L [facility] StationEuhwpkfHTFTEIVCSE7267-78-29 10:54:00 Test Item Value Reference Range Interpretation Comments WBC (test code = WBC) 4.7 3.7-10.4 N [facility] StationWsfqrhdPUTXAMTXTQ1625-78-23 10:54:00 Test Item Value Reference Range Interpretation Comments MCV (test code = MCV) 92.6 81.0-99.0 N [facility] StationZcojlaqGCOXMEYUCQ4957-24-87 10:54:00 Test Item Value Reference Range Interpretation Comments MCH (test code = MCH) 31.4 pg 27.0-31.0 H [facility] StationPwuqtwzUTSVBSHILX1772-24-56 10:54:00 Test Item Value Reference Range Interpretation Comments RBC (test code = RBC) 3.84 4.20-5.40 L [facility] StationGnerfedPYYMQQFTGN7666-38-53 10:54:00 Test Item Value Reference Range Interpretation Comments Hgb (test code = Hgb) 12.1 12.0-16.0 N [facility] StationYehgitvWFGBSTCPXL5492-28-38 10:54:00 Test Item Value Reference Range Interpretation Comments Platelet (test code = Platelet) 287 133-450 N [facility] StationZgjxuytMHVZDSYYHI9913-56-56 10:54:00 Test Item Value Reference Range Interpretation Comments RDW (test code = RDW) 12.7 11.5-14.5 N [facility] StationVgiykljPVCJAYSOEK8968-62-77 10:54:00 Test Item Value Reference Range Interpretation Comments MCHC (test code = MCHC) 33.9 32.0-36.0 N [facility] StationXxdagmwMMJLAXOMUO5973-54-09 10:54:00 Test Item Value Reference Range Interpretation Comments MPV (test code = MPV) 7.2 7.4-10.4 L [facility] StationFmqrhihXTUFNTUDBB3062-50-01 10:54:00 Test Item Value Reference Range Interpretation Comments INR (test code = INR) 0.95 0.85-1.17 N [facility] StationYhohebqVOOOHEQQHR4654-60-47 10:54:00 Test Item Value Reference Range Interpretation Comments PT (test code = PT) 12.7 s 12.0-14.7 N [facility] StationBwwqcmvJWMYDYSLHQ4938-78-15 10:54:00 Test Item Value Reference Range Interpretation Comments PTT (test code = PTT) 28.5 s 22.9-35.8 N [facility] StationMvgpxdmANRMPJFDSR3410-97-90 10:54:00 Test Item Value Reference Range Interpretation Comments Eosinophils # (test code 0.1 See_Comment N [A utomated message] The = Eosinophils #) system whic h generated this result tra nsmitted reference range : <=0.5. The reference r leo was not used to int erpret this result as normal/abnormal . [facility] StationVnsmsgvUICDFVUSHZ7933-94-81 10:54:00 Test Item Value Reference Range Interpretation Comments Basophils # (test code 0.0 See_Comment N [Aut omated message] The = Basophils #) system which generated this result tra nsmitted reference range : <=0.2. The reference r leo was not used to int erpret this result as normal/abnormal . [facility] StationJufuqcuARHATGCTGK2680-26-62 10:54:00 Test Item Value Reference Range Interpretation Comments Basophils (test code = 0.4 See_Comment N [Aut omated message] The Basophils) system which ge nerated this result tra nsmitted reference range : <=1.0. The reference r leo was not used to int erpret this result as normal/abnormal . [facility] StationVzfcnulZIXCIMPFAP4824-76-42 10:54:00 Test Item Value Reference Range Interpretation Comments Segs-Bands # (test code = Segs-Bands #) 2.1 1.5-8.1 N [facility] StationXnjdtqrIQLRNNKDLP2594-27-05 10:54:00 Test Item Value Reference Range Interpretation Comments Monocytes (test code = Monocytes) 9.0 2.0-12.0 N [facility] StationXvvlgiwSEDBJTYEOV6691-59-62 10:54:00 Test Item Value Reference Range Interpretation Comments Eosinophils (test code = 2.4 See_Comment N [A utomated message] The Eosinophils) system which ge nerated this result tra nsmitted reference range : <=4.0. The reference r leo was not used to int erpret this result as normal/abnormal . [facility] StationRbjxiohXQVFFSZWFF5397-40-90 10:54:00 Test Item Value Reference Range Interpretation Comments Monocytes # (test code 0.4 See_Comment N [Aut omated message] The = Monocytes #) system which generated this result tra nsmitted reference range : <=0.8. The reference r leo was not used to int erpret this result as normal/abnormal . [facility] StationRqqeuxiPCCVMEZTRT0989-29-39 10:54:00 Test Item Value Reference Range Interpretation Comments Lymphocytes # (test code = Lymphocytes 2.0 1.0-5.5 N #) [facility] StationWlltggnAOBMIWYBYN8091-82-68 10:54:00 Test Item Value Reference Range Interpretation Comments Lymphocytes (test code = Lymphocytes) 42.8 20.0-40.0 H [facility] StationKuyvyxdFPFUCSZNLW5682-03-75 10:54:00 Test Item Value Reference Range Interpretation Comments Segs (test code = Segs) 45.4 45.0-75.0 N [facility] HospitalPumlxamRZXTGJISQ1476-10-62 10:54:00 Test Item Value Reference Range Interpretation Comments CO2 (test code = CO2) 27 24-32 N [facility] HospitalFpsffqjEEMELGCWS6103-29-22 10:54:00 Test Item Value Reference Range Interpretation Comments Chloride Lvl (test code = Chloride Lvl) 104 95-109 N [facility] HospitalSdnrnxoHICTXUOBY4804-01-88 10:54:00 Test Item Value Reference Range Interpretation Comments Creatinine Lvl (test code = Creatinine 0.5 0.5-1.4 N Lvl) [facility] HospitalAfqmotzUHSLNYVDA2102-32-12 10:54:00 Test Item Value Reference Range Interpretation Comments BUN (test code = BUN) 10 7-22 N [facility] HospitalPxudlnrUOGXFCMXI8060-22-99 10:54:00 Test Item Value Reference Range Interpretation Comments Potassium Lvl (test code = Potassium 4.1 3.5-5.1 N Lvl) [facility] HospitalHghtsruDNREFHPBS3949-93-09 10:54:00 Test Item Value Reference Range Interpretation Comments Sodium Lvl (test code = Sodium Lvl) 141 135-145 N [facility] HospitalKmrkscmOZPEEACUA7919-97-92 10:54:00 Test Item Value Reference Range Interpretation Comments Glucose Lvl (test code = Glucose Lvl) 83 [facility] HospitalKdvwqyoZLTAUBZME9271-93-68 10:54:00 Test Item Value Reference Range Interpretation Comments Calcium Lvl (test code = Calcium Lvl) 8.4 8.5-10.5 L [facility] HospitalHczuqjnJAQWWOPUY9434-87-87 10:54:00 Test Item Value Reference Range Interpretation Comments AGAP (test code = AGAP) 14.1 10.0-20.0 N [facility] StationNlgxmwpHRZPIJWBJS0832-81-69 10:54:00 Test Item Value Reference Range Interpretation Comments Hct (test code = Hct) 35.5 36.0-48.0 L [facility] StationWzrggbwAVJSBZLSKG4328-73-84 10:54:00 Test Item Value Reference Range Interpretation Comments WBC (test code = WBC) 4.7 3.7-10.4 N [facility] StationHlztsbcZUYWVFLWRI1750-98-48 10:54:00 Test Item Value Reference Range Interpretation Comments MCV (test code = MCV) 92.6 81.0-99.0 N [facility] StationUkzypcfSLUAGQBVWI7628-29-23 10:54:00 Test Item Value Reference Range Interpretation Comments MCH (test code = MCH) 31.4 pg 27.0-31.0 H [facility] StationVumzwzvUYCCQWLQOZ6777-73-20 10:54:00 Test Item Value Reference Range Interpretation Comments RBC (test code = RBC) 3.84 4.20-5.40 L [facility] StationGfbwbktCUYDIHZYKN2421-40-43 10:54:00 Test Item Value Reference Range Interpretation Comments Hgb (test code = Hgb) 12.1 12.0-16.0 N [facility] StationRlkyjwuHFHHBLLLMO7099-92-77 10:54:00 Test Item Value Reference Range Interpretation Comments Platelet (test code = Platelet) 287 133-450 N [facility] StationQdgcpqqZSDERRSBHN6634-61-63 10:54:00 Test Item Value Reference Range Interpretation Comments RDW (test code = RDW) 12.7 11.5-14.5 N [facility] StationTeyqwegZKTFMGEPEF3195-84-79 10:54:00 Test Item Value Reference Range Interpretation Comments MCHC (test code = MCHC) 33.9 32.0-36.0 N [facility] StationYkctdliZSELNPDTOC7024-13-34 10:54:00 Test Item Value Reference Range Interpretation Comments MPV (test code = MPV) 7.2 7.4-10.4 L [facility] StationAjanrxpUNFMDXILXU6404-35-56 10:54:00 Test Item Value Reference Range Interpretation Comments INR (test code = INR) 0.95 0.85-1.17 N [facility] StationLdkxfevIMFHODEJZA2507-93-69 10:54:00 Test Item Value Reference Range Interpretation Comments PT (test code = PT) 12.7 s 12.0-14.7 N [facility] StationEmahyonPYFGZOGDOR0265-73-61 10:54:00 Test Item Value Reference Range Interpretation Comments PTT (test code = PTT) 28.5 s 22.9-35.8 N [facility] StationLyjdazqDWWZYRBKAX0853-82-32 10:54:00 Test Item Value Reference Range Interpretation Comments Eosinophils # (test code 0.1 See_Comment N [A utomated message] The = Eosinophils #) system ic h generated this result tra nsmitted reference range : <=0.5. The reference r leo was not used to int erpret this result as normal/abnormal . [facility] StationZlkxytcEXYSSPXKZE4150-38-25 10:54:00 Test Item Value Reference Range Interpretation Comments Basophils # (test code 0.0 See_Comment N [Aut omated message] The = Basophils #) system which generated this result tra nsmitted reference range : <=0.2. The reference r leo was not used to int erpret this result as normal/abnormal . [facility] StationQgcloglVCEPKEEIWI9859-79-83 10:54:00 Test Item Value Reference Range Interpretation Comments Basophils (test code = 0.4 See_Comment N [Aut omated message] The Basophils) system which ge nerated this result tra nsmitted reference range : <=1.0. The reference r leo was not used to int erpret this result as normal/abnormal . [facility] StationDgpnhxzDGYZDVOAHJ6831-96-56 10:54:00 Test Item Value Reference Range Interpretation Comments Segs-Bands # (test code = Segs-Bands #) 2.1 1.5-8.1 N [facility] StationWandxwnUIOBXHDDTC9089-64-68 10:54:00 Test Item Value Reference Range Interpretation Comments Monocytes (test code = Monocytes) 9.0 2.0-12.0 N [facility] StationVnolfroNVPXUTBBSA0871-95-64 10:54:00 Test Item Value Reference Range Interpretation Comments Eosinophils (test code = 2.4 See_Comment N [A utomated message] The Eosinophils) system which ge nerated this result tra nsmitted reference range : <=4.0. The reference r leo was not used to int erpret this result as normal/abnormal . [facility] StationXyzohthQFEVYIGEWC4443-47-07 10:54:00 Test Item Value Reference Range Interpretation Comments Monocytes # (test code 0.4 See_Comment N [Aut omated message] The = Monocytes #) system which generated this result tra nsmitted reference range : <=0.8. The reference r leo was not used to int erpret this result as normal/abnormal . [facility] StationTbrivrgDPLXULTIRF7530-19-44 10:54:00 Test Item Value Reference Range Interpretation Comments Lymphocytes # (test code = Lymphocytes 2.0 1.0-5.5 N #) [facility] StationXnidwjqAZGDRTIYLB4649-22-62 10:54:00 Test Item Value Reference Range Interpretation Comments Lymphocytes (test code = Lymphocytes) 42.8 20.0-40.0 H [facility] StationTrntjezFYYSQDTAQM5109-53-44 10:54:00 Test Item Value Reference Range Interpretation Comments Segs (test code = Segs) 45.4 45.0-75.0 N [facility] HospitalIsizfdyYRQJTWDIK4758-91-74 10:54:00 Test Item Value Reference Range Interpretation Comments CO2 (test code = CO2) 27 24-32 N [facility] HospitalYmwqcacWXXYEKFDL0663-11-77 10:54:00 Test Item Value Reference Range Interpretation Comments Chloride Lvl (test code = Chloride Lvl) 104 95-109 N [facility] HospitalHzzzsnxIOUSUJIGY1306-00-95 10:54:00 Test Item Value Reference Range Interpretation Comments Creatinine Lvl (test code = Creatinine 0.5 0.5-1.4 N Lvl) [facility] HospitalVwpbyxpEFHWBNJJU0864-42-00 10:54:00 Test Item Value Reference Range Interpretation Comments BUN (test code = BUN) 10 7-22 N [facility] HospitalOdjoumvZAAMJSIKV3976-94-82 10:54:00 Test Item Value Reference Range Interpretation Comments Potassium Lvl (test code = Potassium 4.1 3.5-5.1 N Lvl) [facility] HospitalIxfhucuWESQWJKIK4942-96-98 10:54:00 Test Item Value Reference Range Interpretation Comments Sodium Lvl (test code = Sodium Lvl) 141 135-145 N [facility] HospitalXktobxyHNWTWEWBY2148-80-24 10:54:00 Test Item Value Reference Range Interpretation Comments Glucose Lvl (test code = Glucose Lvl) 83 [facility] HospitalFsnfambXYYZZLBAZ5116-98-33 10:54:00 Test Item Value Reference Range Interpretation Comments Calcium Lvl (test code = Calcium Lvl) 8.4 8.5-10.5 L [facility] HospitalRlajgwbYBIZEHHFG6614-94-98 10:54:00 Test Item Value Reference Range Interpretation Comments AGAP (test code = AGAP) 14.1 10.0-20.0 N [facility] StationGyyufcfBSLZRUEDAE4304-53-72 10:54:00 Test Item Value Reference Range Interpretation Comments Hct (test code = Hct) 35.5 36.0-48.0 L [facility] StationGjcujbvBWDIGAWZLY7462-16-50 10:54:00 Test Item Value Reference Range Interpretation Comments WBC (test code = WBC) 4.7 3.7-10.4 N [facility] StationQsbulblSHOUDSMRZO3398-02-60 10:54:00 Test Item Value Reference Range Interpretation Comments MCV (test code = MCV) 92.6 81.0-99.0 N [facility] StationZxixfjxAMOVYENCZZ7002-47-14 10:54:00 Test Item Value Reference Range Interpretation Comments MCH (test code = MCH) 31.4 pg 27.0-31.0 H [facility] StationUpsjqqjNBSWGDQEAV1003-97-51 10:54:00 Test Item Value Reference Range Interpretation Comments RBC (test code = RBC) 3.84 4.20-5.40 L [facility] StationRgeiavlWXTDENNNVU0194-45-79 10:54:00 Test Item Value Reference Range Interpretation Comments Hgb (test code = Hgb) 12.1 12.0-16.0 N [facility] StationCuoaksgPTMCJLJEXI4650-83-75 10:54:00 Test Item Value Reference Range Interpretation Comments Platelet (test code = Platelet) 287 133-450 N [facility] StationKcljhgmQVBUJNQZIT5415-48-47 10:54:00 Test Item Value Reference Range Interpretation Comments RDW (test code = RDW) 12.7 11.5-14.5 N [facility] StationZvojnfuGNNWHKDWXR0724-91-50 10:54:00 Test Item Value Reference Range Interpretation Comments MCHC (test code = MCHC) 33.9 32.0-36.0 N [facility] StationFkrxpsmDVEGTZCTIL7790-04-31 10:54:00 Test Item Value Reference Range Interpretation Comments MPV (test code = MPV) 7.2 7.4-10.4 [facility]2012-03-19 10:54:00 Test Item Value Reference Range Interpretation Comments INR (test code = INR) 0.95 0.85-1.17 N [facility] StationPjnbotgRVITVTUBRB4555-27-70 10:54:00 Test Item Value Reference Range Interpretation Comments PT (test code = PT) 12.7 s 12.0-14.7 N [facility] StationTgddmacGUOXKETWEO4014-42-97 10:54:00 Test Item Value Reference Range Interpretation Comments PTT (test code = PTT) 28.5 s 22.9-35.8 N [facility] StationCivzlicFOIWURDGDM0221-72-67 10:54:00 Test Item Value Reference Range Interpretation Comments Eosinophils # (test code 0.1 See_Comment N [A utomated message] The = Eosinophils #) system wh h generated this result tra nsmitted reference range : <=0.5. The reference r leo was not used to int erpret this result as normal/abnormal . [facility] StationNxsrheyMYWRPCNCQD0943-67-50 10:54:00 Test Item Value Reference Range Interpretation Comments Basophils # (test code 0.0 See_Comment N [Aut omated message] The = Basophils #) system which generated this result tra nsmitted reference range : <=0.2. The reference r leo was not used to int erpret this result as normal/abnormal . [facility] StationLewhumcDJUTSOPZSK9075-85-83 10:54:00 Test Item Value Reference Range Interpretation Comments Basophils (test code = 0.4 See_Comment N [Aut omated message] The Basophils) system which ge nerated this result tra nsmitted reference range : <=1.0. The reference r leo was not used to int erpret this result as normal/abnormal . [facility] StationEhewlpfOHHCJCPDKX4655-36-64 10:54:00 Test Item Value Reference Range Interpretation Comments Segs-Bands # (test code = Segs-Bands #) 2.1 1.5-8.1 N [facility] StationPzrmsmmEJXEZJTJFW0539-35-76 10:54:00 Test Item Value Reference Range Interpretation Comments Monocytes (test code = Monocytes) 9.0 2.0-12.0 N [facility] StationVcbdygfJYKGVAVOFJ1130-79-71 10:54:00 Test Item Value Reference Range Interpretation Comments Eosinophils (test code = 2.4 See_Comment N [A utomated message] The Eosinophils) system which ge nerated this result tra nsmitted reference range : <=4.0. The reference r leo was not used to int erpret this result as normal/abnormal . [facility] StationPlzdwagFMHGQEAIZA3782-81-07 10:54:00 Test Item Value Reference Range Interpretation Comments Monocytes # (test code 0.4 See_Comment N [Aut omated message] The = Monocytes #) system which generated this result tra nsmitted reference range : <=0.8. The reference r leo was not used to int erpret this result as normal/abnormal . [facility] StationLnzuecxKIFQXRSXDC0573-62-84 10:54:00 Test Item Value Reference Range Interpretation Comments Lymphocytes # (test code = Lymphocytes 2.0 1.0-5.5 N #) [facility] StationDpirgbeSBPXMJGKWH5185-91-48 10:54:00 Test Item Value Reference Range Interpretation Comments Lymphocytes (test code = Lymphocytes) 42.8 20.0-40.0 H [facility] StationSvajgbsZYLVWAPRPQ7511-38-57 10:54:00 Test Item Value Reference Range Interpretation Comments Segs (test code = Segs) 45.4 45.0-75.0 N [facility] HospitalCvqeypbUZESNBZQH1612-15-53 10:02:00 Test Item Value Reference Range Interpretation Comments Chloride Lvl (test code = Chloride Lvl) 105 95-109 N [facility] HospitalPozurwxKKXRBNRDS8082-23-65 10:02:00 Test Item Value Reference Range Interpretation Comments Potassium Lvl (test code = Potassium 4.1 3.5-5.1 N Lvl) [facility] HospitalZbfxtnaRGVGQWUXV2987-02-01 10:02:00 Test Item Value Reference Range Interpretation Comments Sodium Lvl (test code = Sodium Lvl) 143 135-145 N [facility] HospitalWsrtqfzVGSGHLTZX2137-29-08 10:02:00 Test Item Value Reference Range Interpretation Comments CO2 (test code = CO2) 29 24-32 N [facility] HospitalDblaqhiNXVWOOIVE3232-01-13 10:02:00 Test Item Value Reference Range Interpretation Comments Calcium Lvl (test code = Calcium Lvl) 8.7 8.5-10.5 N [facility] HospitalSecctfqWEHQXRTAO4197-30-65 10:02:00 Test Item Value Reference Range Interpretation Comments BUN (test code = BUN) 6 7-22 L [facility] HospitalGxyvlxmZKSWHYBVA0856-16-97 10:02:00 Test Item Value Reference Range Interpretation Comments Creatinine Lvl (test code = Creatinine 0.6 0.5-1.4 N Lvl) [facility] HospitalRvaojimWJBCTBRAK1115-65-32 10:02:00 Test Item Value Reference Range Interpretation Comments Glucose Lvl (test code = Glucose Lvl) 118 [facility] HospitalWlntdycYSEOTMDPM3761-64-30 10:02:00 Test Item Value Reference Range Interpretation Comments AGAP (test code = AGAP) 13.1 10.0-20.0 N [facility] StationQimsywbWJBADEFKZJ8096-74-31 10:02:00 Test Item Value Reference Range Interpretation Comments Basophils # (test code 0.0 See_Comment N [Aut omated message] The = Basophils #) system which generated this result tra nsmitted reference range : <=0.2. The reference r leo was not used to int erpret this result as normal/abnormal . [facility] StationMqqiahuBABYAJWGGB4909-90-98 10:02:00 Test Item Value Reference Range Interpretation Comments Monocytes # (test code 0.3 See_Comment N [Aut omated message] The = Monocytes #) system which generated this result tra nsmitted reference range : <=0.8. The reference r leo was not used to int erpret this result as normal/abnormal . [facility] StationGnwgqvsKLZMBCEICB0317-98-90 10:02:00 Test Item Value Reference Range Interpretation Comments Eosinophils # (test code 0.1 See_Comment N [A utomated message] The = Eosinophils #) system whic h generated this result tra nsmitted reference range : <=0.5. The reference r leo was not used to int erpret this result as normal/abnormal . [facility] StationLkkhrmeOZTAEQTRYX9597-21-95 10:02:00 Test Item Value Reference Range Interpretation Comments Segs-Bands # (test code = Segs-Bands #) 2.8 1.5-8.1 N [facility] StationWnxrkjbIJQEDJFVPR9007-04-35 10:02:00 Test Item Value Reference Range Interpretation Comments Lymphocytes # (test code = Lymphocytes 1.7 1.0-5.5 N #) [facility] StationGvrhtmnDVVPKMMONP0958-97-91 10:02:00 Test Item Value Reference Range Interpretation Comments Basophils (test code = 0.6 See_Comment N [Aut omated message] The Basophils) system which ge nerated this result tra nsmitted reference range : <=1.0. The reference r leo was not used to int erpret this result as normal/abnormal . [facility] StationDaoecmjIJUEKKIVQI7031-34-50 10:02:00 Test Item Value Reference Range Interpretation Comments Monocytes (test code = Monocytes) 6.9 2.0-12.0 N [facility] StationFnykrfhZMDVJJNAHM4057-15-52 10:02:00 Test Item Value Reference Range Interpretation Comments Eosinophils (test code = 2.0 See_Comment N [A utomated message] The Eosinophils) system which ge nerated this result tra nsmitted reference range : <=4.0. The reference r leo was not used to int erpret this result as normal/abnormal . [facility] StationNpbgnnrPNFQZVLMKM1335-03-59 10:02:00 Test Item Value Reference Range Interpretation Comments Segs (test code = Segs) 55.8 45.0-75.0 N [facility] StationMyczhpyVRNAXRNHZQ3856-59-53 10:02:00 Test Item Value Reference Range Interpretation Comments Lymphocytes (test code = Lymphocytes) 34.7 20.0-40.0 N [facility] StationTxnnhtoKEZGYFEPSQ1963-20-60 10:02:00 Test Item Value Reference Range Interpretation Comments PTT (test code = PTT) 32.2 s 22.9-35.8 N [facility] StationMgwtrroMXLJLOMLIO0720-69-25 10:02:00 Test Item Value Reference Range Interpretation Comments PT (test code = PT) 13.3 s 12.0-14.7 N [facility] StationLkdrpdzKVRFZRPRSP3464-98-80 10:02:00 Test Item Value Reference Range Interpretation Comments INR (test code = INR) 1.01 0.85-1.17 N [facility] StationUyttmuqOAMCMCKUHE0883-78-11 10:02:00 Test Item Value Reference Range Interpretation Comments Hct (test code = Hct) 27.5 36.0-48.0 L [facility] StationNdaaozpYGCUHSUHBF8238-42-72 10:02:00 Test Item Value Reference Range Interpretation Comments RBC (test code = RBC) 3.34 4.20-5.40 L [facility] StationKhvcdoeTFOWUFKAKH1698-38-24 10:02:00 Test Item Value Reference Range Interpretation Comments Hgb (test code = Hgb) 9.7 12.0-16.0 L [facility] StationJdqlnigWHHYTSTVQH4892-49-71 10:02:00 Test Item Value Reference Range Interpretation Comments WBC (test code = WBC) 5.0 3.7-10.4 N [facility] StationXrqsfxuWVRDIYDXSZ0371-63-60 10:02:00 Test Item Value Reference Range Interpretation Comments MPV (test code = MPV) 9.2 7.4-10.4 N [facility] StationXvveeprZJCAGSDSGY3701-86-00 10:02:00 Test Item Value Reference Range Interpretation Comments Platelet (test code = Platelet) 240 133-450 N [facility] StationGlmnpswKCMRUGITRB3297-32-67 10:02:00 Test Item Value Reference Range Interpretation Comments RDW (test code = RDW) 14.3 11.5-14.5 N [facility] StationKhjjnfbAZXXKRLEBG2760-63-98 10:02:00 Test Item Value Reference Range Interpretation Comments MCHC (test code = MCHC) 35.2 32.0-36.0 N [facility] StationJknxqxaRSAHTXDMBI0142-02-17 10:02:00 Test Item Value Reference Range Interpretation Comments MCH (test code = MCH) 28.9 pg 27.0-31.0 N [facility] StationXdjhfppIIWDOWKFQM6128-00-93 10:02:00 Test Item Value Reference Range Interpretation Comments MCV (test code = MCV) 82.1 81.0-99.0 N [facility] HospitalBbzwbhhYIEHDUQPH5217-65-86 10:02:00 Test Item Value Reference Range Interpretation Comments Chloride Lvl (test code = Chloride Lvl) 105 95-109 N [facility] HospitalTtghtzmSLEYVTXJL9583-62-97 10:02:00 Test Item Value Reference Range Interpretation Comments Potassium Lvl (test code = Potassium 4.1 3.5-5.1 N Lvl) [facility] HospitalSfadadrKPPAVOXXR6958-74-24 10:02:00 Test Item Value Reference Range Interpretation Comments Sodium Lvl (test code = Sodium Lvl) 143 135-145 N [facility] HospitalMovhlbpPFWKHDQHB4009-33-98 10:02:00 Test Item Value Reference Range Interpretation Comments CO2 (test code = CO2) 29 24-32 N [facility] HospitalYcnhkegIZBXNMVJN9073-73-06 10:02:00 Test Item Value Reference Range Interpretation Comments Calcium Lvl (test code = Calcium Lvl) 8.7 8.5-10.5 N [facility] HospitalYvfknqnFEAURSHMG9405-38-90 10:02:00 Test Item Value Reference Range Interpretation Comments BUN (test code = BUN) 6 7-22 L [facility] HospitalIgmqlzpIAOELHCCG5017-22-09 10:02:00 Test Item Value Reference Range Interpretation Comments Creatinine Lvl (test code = Creatinine 0.6 0.5-1.4 N Lvl) [facility] HospitalWfzoqieZIYMIWDOC3344-38-57 10:02:00 Test Item Value Reference Range Interpretation Comments Glucose Lvl (test code = Glucose Lvl) 118 [facility] HospitalRvolpniZUTFOLAWP3831-38-41 10:02:00 Test Item Value Reference Range Interpretation Comments AGAP (test code = AGAP) 13.1 10.0-20.0 N [facility] StationBeszgwsUCJXAOGSZS0738-75-27 10:02:00 Test Item Value Reference Range Interpretation Comments Basophils # (test code 0.0 See_Comment N [Aut omated message] The = Basophils #) system which generated this result tra nsmitted reference range : <=0.2. The reference r leo was not used to int erpret this result as normal/abnormal . [facility] StationDzhxaldHDFNERBTJQ9743-26-50 10:02:00 Test Item Value Reference Range Interpretation Comments Monocytes # (test code 0.3 See_Comment N [Aut omated message] The = Monocytes #) system which generated this result tra nsmitted reference range : <=0.8. The reference r leo was not used to int erpret this result as normal/abnormal . [facility] StationVbkfrbcUGRYOILSGE7754-50-51 10:02:00 Test Item Value Reference Range Interpretation Comments Eosinophils # (test code 0.1 See_Comment N [A utomated message] The = Eosinophils #) system whic h generated this result tra nsmitted reference range : <=0.5. The reference r leo was not used to int erpret this result as normal/abnormal . [facility] StationSlrzrakDFRDDGQKSP6047-56-22 10:02:00 Test Item Value Reference Range Interpretation Comments Segs-Bands # (test code = Segs-Bands #) 2.8 1.5-8.1 N [facility] StationZcpgbuzEIMQMOQSLT1744-05-19 10:02:00 Test Item Value Reference Range Interpretation Comments Lymphocytes # (test code = Lymphocytes 1.7 1.0-5.5 N #) [facility] StationZxwiwszQLFPKDVDQD6770-71-11 10:02:00 Test Item Value Reference Range Interpretation Comments Basophils (test code = 0.6 See_Comment N [Aut omated message] The Basophils) system which ge nerated this result tra nsmitted reference range : <=1.0. The reference r leo was not used to int erpret this result as normal/abnormal . [facility] StationSafuxwbYEJXPCAGHN0898-98-21 10:02:00 Test Item Value Reference Range Interpretation Comments Monocytes (test code = Monocytes) 6.9 2.0-12.0 N [facility] StationKruuvnpHODWZXPJGX1666-72-47 10:02:00 Test Item Value Reference Range Interpretation Comments Eosinophils (test code = 2.0 See_Comment N [A utomated message] The Eosinophils) system which ge nerated this result tra nsmitted reference range : <=4.0. The reference r leo was not used to int erpret this result as normal/abnormal . [facility] StationRudunymWAZBWMMQDF0670-83-57 10:02:00 Test Item Value Reference Range Interpretation Comments Segs (test code = Segs) 55.8 45.0-75.0 N [facility] StationDkucfqzETITEMWTXJ2529-75-49 10:02:00 Test Item Value Reference Range Interpretation Comments Lymphocytes (test code = Lymphocytes) 34.7 20.0-40.0 N [facility] StationOolhqyqODHVGKJJRV4301-12-83 10:02:00 Test Item Value Reference Range Interpretation Comments PTT (test code = PTT) 32.2 s 22.9-35.8 N [facility] StationCxnomvgWDCSPFZUFX3201-30-16 10:02:00 Test Item Value Reference Range Interpretation Comments PT (test code = PT) 13.3 s 12.0-14.7 N [facility] StationBalnzlbNIYPYHQTKI6812-67-91 10:02:00 Test Item Value Reference Range Interpretation Comments INR (test code = INR) 1.01 0.85-1.17 N [facility] StationQncbnnpLOCOOBYYSU0427-88-51 10:02:00 Test Item Value Reference Range Interpretation Comments Hct (test code = Hct) 27.5 36.0-48.0 L [facility] StationWdondnsLLJBMDWWBN7179-66-94 10:02:00 Test Item Value Reference Range Interpretation Comments RBC (test code = RBC) 3.34 4.20-5.40 L [facility] StationWlxxcvlFZODEZWYMM3851-24-70 10:02:00 Test Item Value Reference Range Interpretation Comments Hgb (test code = Hgb) 9.7 12.0-16.0 L [facility] StationVojbvddVNCCNWWUCU2344-07-60 10:02:00 Test Item Value Reference Range Interpretation Comments WBC (test code = WBC) 5.0 3.7-10.4 N [facility] StationRsrryjjNFXOBQLEYC7722-93-69 10:02:00 Test Item Value Reference Range Interpretation Comments MPV (test code = MPV) 9.2 7.4-10.4 N [facility] StationOzwderzECMYVZPRNK3337-33-96 10:02:00 Test Item Value Reference Range Interpretation Comments Platelet (test code = Platelet) 240 133-450 N [facility] StationZthqjcdYBDSPLNFPC3956-49-16 10:02:00 Test Item Value Reference Range Interpretation Comments RDW (test code = RDW) 14.3 11.5-14.5 N [facility] StationWnpeduqTTRXNSGTFV4075-23-09 10:02:00 Test Item Value Reference Range Interpretation Comments MCHC (test code = MCHC) 35.2 32.0-36.0 N [facility] StationYeyagjbRLIGIPPSCF3044-66-05 10:02:00 Test Item Value Reference Range Interpretation Comments MCH (test code = MCH) 28.9 pg 27.0-31.0 N [facility] StationAvdneknETWLHDDWHA6158-75-48 10:02:00 Test Item Value Reference Range Interpretation Comments MCV (test code = MCV) 82.1 81.0-99.0 N [facility] HospitalJyccbktBELYDYPAH6980-46-63 10:02:00 Test Item Value Reference Range Interpretation Comments Chloride Lvl (test code = Chloride Lvl) 105 95-109 N [facility] HospitalIpayeihZZQPALRSU2853-46-19 10:02:00 Test Item Value Reference Range Interpretation Comments Potassium Lvl (test code = Potassium 4.1 3.5-5.1 N Lvl) [facility] HospitalZawidulRUNESNTBA7779-73-90 10:02:00 Test Item Value Reference Range Interpretation Comments Sodium Lvl (test code = Sodium Lvl) 143 135-145 N [facility] HospitalYfetjxlQWIYADOTA7884-69-00 10:02:00 Test Item Value Reference Range Interpretation Comments CO2 (test code = CO2) 29 24-32 N [facility] HospitalUhdfckaCEVZXPAHM3927-96-00 10:02:00 Test Item Value Reference Range Interpretation Comments Calcium Lvl (test code = Calcium Lvl) 8.7 8.5-10.5 N [facility] HospitalQmonvxtZCAQZOOAW3138-84-13 10:02:00 Test Item Value Reference Range Interpretation Comments BUN (test code = BUN) 6 7-22 L [facility] HospitalPcbbhxcWDYGJDTEP2914-39-02 10:02:00 Test Item Value Reference Range Interpretation Comments Creatinine Lvl (test code = Creatinine 0.6 0.5-1.4 N Lvl) [facility] HospitalJijksoxABWUFMFFJ5612-64-84 10:02:00 Test Item Value Reference Range Interpretation Comments Glucose Lvl (test code = Glucose Lvl) 118 [facility] HospitalNcjalriVLRQHUNVF2751-84-45 10:02:00 Test Item Value Reference Range Interpretation Comments AGAP (test code = AGAP) 13.1 10.0-20.0 N [facility] StationPdwqtneAJDAKFHUJR1806-16-83 10:02:00 Test Item Value Reference Range Interpretation Comments Basophils # (test code 0.0 See_Comment N [Aut omated message] The = Basophils #) system which generated this result tra nsmitted reference range : <=0.2. The reference r leo was not used to int erpret this result as normal/abnormal . [facility] StationJdtqqvrOQOBUQOYAF5495-87-14 10:02:00 Test Item Value Reference Range Interpretation Comments Monocytes # (test code 0.3 See_Comment N [Aut omated message] The = Monocytes #) system which generated this result tra nsmitted reference range : <=0.8. The reference r leo was not used to int erpret this result as normal/abnormal . [facility] StationVkobhauPUOOQLZKBL1802-20-18 10:02:00 Test Item Value Reference Range Interpretation Comments Eosinophils # (test code 0.1 See_Comment N [A utomated message] The = Eosinophils #) system whic h generated this result tra nsmitted reference range : <=0.5. The reference r leo was not used to int erpret this result as normal/abnormal . [facility] StationFpopojdAMUWTJFXUY7720-84-43 10:02:00 Test Item Value Reference Range Interpretation Comments Segs-Bands # (test code = Segs-Bands #) 2.8 1.5-8.1 N [facility] StationEdshjrtWEKFQSMYMH4749-56-68 10:02:00 Test Item Value Reference Range Interpretation Comments Lymphocytes # (test code = Lymphocytes 1.7 1.0-5.5 N #) [facility] StationYmfruwmBFCFTIELTE1296-92-47 10:02:00 Test Item Value Reference Range Interpretation Comments Basophils (test code = 0.6 See_Comment N [Aut omated message] The Basophils) system which ge nerated this result tra nsmitted reference range : <=1.0. The reference r leo was not used to int erpret this result as normal/abnormal . [facility] StationTvadwpjSFEEVFLCCS9320-94-70 10:02:00 Test Item Value Reference Range Interpretation Comments Monocytes (test code = Monocytes) 6.9 2.0-12.0 N [facility] StationYewrvoiRYIGVSAHJP7442-21-95 10:02:00 Test Item Value Reference Range Interpretation Comments Eosinophils (test code = 2.0 See_Comment N [A utomated message] The Eosinophils) system which ge nerated this result tra nsmitted reference range : <=4.0. The reference r leo was not used to int erpret this result as normal/abnormal . [facility] StationLihgjwxJZCONFWECE1475-41-73 10:02:00 Test Item Value Reference Range Interpretation Comments Segs (test code = Segs) 55.8 45.0-75.0 N [facility] StationUllnghfZBJLRFAGFT8161-19-14 10:02:00 Test Item Value Reference Range Interpretation Comments Lymphocytes (test code = Lymphocytes) 34.7 20.0-40.0 N [facility] StationCcpgggdLCAOTDVGJJ4909-29-95 10:02:00 Test Item Value Reference Range Interpretation Comments PTT (test code = PTT) 32.2 s 22.9-35.8 N [facility] StationEejrrbeFSAVWPABWT7675-78-98 10:02:00 Test Item Value Reference Range Interpretation Comments PT (test code = PT) 13.3 s 12.0-14.7 N [facility] StationIlvwikwHCINQJOADM8887-54-01 10:02:00 Test Item Value Reference Range Interpretation Comments INR (test code = INR) 1.01 0.85-1.17 N [facility] StationPnmcdmzMVGQUZKRZI5477-55-21 10:02:00 Test Item Value Reference Range Interpretation Comments Hct (test code = Hct) 27.5 36.0-48.0 L [facility] StationWanojhbOSJOERHVFL5462-57-10 10:02:00 Test Item Value Reference Range Interpretation Comments RBC (test code = RBC) 3.34 4.20-5.40 L [facility] StationYmiptelXYBQOYXETI3711-04-79 10:02:00 Test Item Value Reference Range Interpretation Comments Hgb (test code = Hgb) 9.7 12.0-16.0 L [facility] StationDjcdscjCBXKIDNZIE2381-20-85 10:02:00 Test Item Value Reference Range Interpretation Comments WBC (test code = WBC) 5.0 3.7-10.4 N [facility] StationZippdluNJXYPGHDZJ5125-32-74 10:02:00 Test Item Value Reference Range Interpretation Comments MPV (test code = MPV) 9.2 7.4-10.4 N [facility] StationLrmvwaaVKOISQLWDR4957-13-42 10:02:00 Test Item Value Reference Range Interpretation Comments Platelet (test code = Platelet) 240 133-450 N [facility] StationKdcxzsiHROIDTLBPY1025-23-15 10:02:00 Test Item Value Reference Range Interpretation Comments RDW (test code = RDW) 14.3 11.5-14.5 N [facility] StationEofwolfRWKQHODHQG5906-50-30 10:02:00 Test Item Value Reference Range Interpretation Comments MCHC (test code = MCHC) 35.2 32.0-36.0 N [facility] StationPypgzgxFYHTYJVCMO6779-74-02 10:02:00 Test Item Value Reference Range Interpretation Comments MCH (test code = MCH) 28.9 pg 27.0-31.0 N [facility] StationOgjuwzoBYUOSIVRWD9839-70-35 10:02:00 Test Item Value Reference Range Interpretation Comments MCV (test code = MCV) 82.1 81.0-99.0 N [facility] HospitalUkfvegkWLUXPGBPX3265-37-35 10:02:00 Test Item Value Reference Range Interpretation Comments Chloride Lvl (test code = Chloride Lvl) 105 95-109 N [facility] HospitalEjgjnhnIFBCCSKBW9635-92-95 10:02:00 Test Item Value Reference Range Interpretation Comments Potassium Lvl (test code = Potassium 4.1 3.5-5.1 N Lvl) [facility] HospitalXidkmacPNJHJDEJC2312-96-61 10:02:00 Test Item Value Reference Range Interpretation Comments Sodium Lvl (test code = Sodium Lvl) 143 135-145 N [facility] HospitalHuglsqmHJHICQRBN4289-71-12 10:02:00 Test Item Value Reference Range Interpretation Comments CO2 (test code = CO2) 29 24-32 N [facility] HospitalKaohsagNVUKBRGZC1779-55-50 10:02:00 Test Item Value Reference Range Interpretation Comments Calcium Lvl (test code = Calcium Lvl) 8.7 8.5-10.5 N [facility] HospitalWsflpwsVWJADDWLC0031-94-51 10:02:00 Test Item Value Reference Range Interpretation Comments BUN (test code = BUN) 6 7-22 L [facility] HospitalAreanfeSTVLCPOTI7071-59-39 10:02:00 Test Item Value Reference Range Interpretation Comments Creatinine Lvl (test code = Creatinine 0.6 0.5-1.4 N Lvl) [facility] HospitalWnylqenXPIEJVCTJ4766-60-47 10:02:00 Test Item Value Reference Range Interpretation Comments Glucose Lvl (test code = Glucose Lvl) 118 [facility] HospitalWrekudfOKNJDZXNL4530-09-33 10:02:00 Test Item Value Reference Range Interpretation Comments AGAP (test code = AGAP) 13.1 10.0-20.0 N [facility] StationJvnytmzKOAAEQKZHU5988-25-73 10:02:00 Test Item Value Reference Range Interpretation Comments Basophils # (test code 0.0 See_Comment N [Aut omated message] The = Basophils #) system which generated this result tra nsmitted reference range : <=0.2. The reference r leo was not used to int erpret this result as normal/abnormal . [facility] StationKqeuyksKOQJTVRKAU6677-39-17 10:02:00 Test Item Value Reference Range Interpretation Comments Monocytes # (test code 0.3 See_Comment N [Aut omated message] The = Monocytes #) system which generated this result tra nsmitted reference range : <=0.8. The reference r leo was not used to int erpret this result as normal/abnormal . [facility] StationXbpjtecAUJVHZWUXQ7925-15-78 10:02:00 Test Item Value Reference Range Interpretation Comments Eosinophils # (test code 0.1 See_Comment N [A utomated message] The = Eosinophils #) system whic h generated this result tra nsmitted reference range : <=0.5. The reference r leo was not used to int erpret this result as normal/abnormal . [facility] StationNuxbpvnPWSVJJFMRB4933-27-10 10:02:00 Test Item Value Reference Range Interpretation Comments Segs-Bands # (test code = Segs-Bands #) 2.8 1.5-8.1 N [facility] StationBbnughkLZBDPPUVQI8743-61-00 10:02:00 Test Item Value Reference Range Interpretation Comments Lymphocytes # (test code = Lymphocytes 1.7 1.0-5.5 N #) [facility] StationNeupolbTTPRVLQGVR8846-90-90 10:02:00 Test Item Value Reference Range Interpretation Comments Basophils (test code = 0.6 See_Comment N [Aut omated message] The Basophils) system which ge nerated this result tra nsmitted reference range : <=1.0. The reference r leo was not used to int erpret this result as normal/abnormal . [facility] StationGjrwzjcKSOTRYALPN6281-37-93 10:02:00 Test Item Value Reference Range Interpretation Comments Monocytes (test code = Monocytes) 6.9 2.0-12.0 N [facility] StationChgpnouTYLBJEIZOA5392-77-97 10:02:00 Test Item Value Reference Range Interpretation Comments Eosinophils (test code = 2.0 See_Comment N [A utomated message] The Eosinophils) system which ge nerated this result tra nsmitted reference range : <=4.0. The reference r leo was not used to int erpret this result as normal/abnormal . [facility] StationFyhxwewUVWMWCCCRJ6667-13-52 10:02:00 Test Item Value Reference Range Interpretation Comments Segs (test code = Segs) 55.8 45.0-75.0 N [facility] StationDfbrjbeMTALUZFHDK7190-66-55 10:02:00 Test Item Value Reference Range Interpretation Comments Lymphocytes (test code = Lymphocytes) 34.7 20.0-40.0 N [place] 545582-03-19 10:02:00 Test Item Value Reference Range Interpretation Comments PTT (test code = PTT) 32.2 s 22.9-35.8 N [facility] StationRzgmxrjOAAZKZGZOQ2426-59-68 10:02:00 Test Item Value Reference Range Interpretation Comments PT (test code = PT) 13.3 s 12.0-14.7 N [facility] StationCcujtlrLKOLRBRAQW4087-64-30 10:02:00 Test Item Value Reference Range Interpretation Comments INR (test code = INR) 1.01 0.85-1.17 N [facility] StationOynggfgACJJTSZWSQ7286-65-42 10:02:00 Test Item Value Reference Range Interpretation Comments Hct (test code = Hct) 27.5 36.0-48.0 L [facility] StationHzaoptjCNZXZSZPZF4132-65-30 10:02:00 Test Item Value Reference Range Interpretation Comments RBC (test code = RBC) 3.34 4.20-5.40 L [facility] StationMkcdldmQNRQIVFLCK0323-52-79 10:02:00 Test Item Value Reference Range Interpretation Comments Hgb (test code = Hgb) 9.7 12.0-16.0 L [facility] StationTkuqwrrJSAPXDJMDG4540-35-64 10:02:00 Test Item Value Reference Range Interpretation Comments WBC (test code = WBC) 5.0 3.7-10.4 N [facility] StationGhvgaikHXCFLJJKWO0595-40-02 10:02:00 Test Item Value Reference Range Interpretation Comments MPV (test code = MPV) 9.2 7.4-10.4 N [facility] StationTuumrkeCVAIMERTIG7488-41-73 10:02:00 Test Item Value Reference Range Interpretation Comments Platelet (test code = Platelet) 240 133-450 N [facility] StationHkaiihsSYXEPLYGJM6359-89-14 10:02:00 Test Item Value Reference Range Interpretation Comments RDW (test code = RDW) 14.3 11.5-14.5 N [facility] StationTflbmruRAIDULXPQA3218-70-05 10:02:00 Test Item Value Reference Range Interpretation Comments MCHC (test code = MCHC) 35.2 32.0-36.0 N [facility] StationIxbbrpbUNMQWSCYZF8571-06-47 10:02:00 Test Item Value Reference Range Interpretation Comments MCH (test code = MCH) 28.9 pg 27.0-31.0 N [facility] StationOmhivbaWRSEZDYVAP7524-10-31 10:02:00 Test Item Value Reference Range Interpretation Comments MCV (test code = MCV) 82.1 81.0-99.0 N [facility] HospitalWtobvsuVBXSIVLSD9990-53-10 10:02:00 Test Item Value Reference Range Interpretation Comments Chloride Lvl (test code = Chloride Lvl) 105 95-109 N [facility] HospitalHckfqtfGCBNNHDMG6753-43-89 10:02:00 Test Item Value Reference Range Interpretation Comments Potassium Lvl (test code = Potassium 4.1 3.5-5.1 N Lvl) [facility] HospitalUdcmpehWBIZVJZFD8443-95-71 10:02:00 Test Item Value Reference Range Interpretation Comments Sodium Lvl (test code = Sodium Lvl) 143 135-145 N [facility] HospitalRdcwpvkQKTBQGASX9704-29-40 10:02:00 Test Item Value Reference Range Interpretation Comments CO2 (test code = CO2) 29 24-32 N [facility] HospitalZihdohmCGEONVLHC0038-02-86 10:02:00 Test Item Value Reference Range Interpretation Comments Calcium Lvl (test code = Calcium Lvl) 8.7 8.5-10.5 N [facility] HospitalVvccegeRHUWWZQRX7292-44-15 10:02:00 Test Item Value Reference Range Interpretation Comments BUN (test code = BUN) 6 7-22 L [facility] HospitalRlposvqWINUAGNCG5809-94-36 10:02:00 Test Item Value Reference Range Interpretation Comments Creatinine Lvl (test code = Creatinine 0.6 0.5-1.4 N Lvl) [facility] HospitalTbivxdcTBGLCHGUF8442-09-99 10:02:00 Test Item Value Reference Range Interpretation Comments Glucose Lvl (test code = Glucose Lvl) 118 [facility] HospitalRvxitwlDMJVALHPU7746-17-36 10:02:00 Test Item Value Reference Range Interpretation Comments AGAP (test code = AGAP) 13.1 10.0-20.0 N [facility] StationCjjpnheBMWJKFFSTP8862-52-97 10:02:00 Test Item Value Reference Range Interpretation Comments Basophils # (test code 0.0 See_Comment N [Aut omated message] The = Basophils #) system which generated this result tra nsmitted reference range : <=0.2. The reference r leo was not used to int erpret this result as normal/abnormal . [facility] StationBvqksuvQSMJQNNTPF6676-15-30 10:02:00 Test Item Value Reference Range Interpretation Comments Monocytes # (test code 0.3 See_Comment N [Aut omated message] The = Monocytes #) system which generated this result tra nsmitted reference range : <=0.8. The reference r leo was not used to int erpret this result as normal/abnormal . [facility] StationAqnqaqsTOKQGFHSRG5671-41-97 10:02:00 Test Item Value Reference Range Interpretation Comments Eosinophils # (test code 0.1 See_Comment N [A utomated message] The = Eosinophils #) system whic h generated this result tra nsmitted reference range : <=0.5. The reference r leo was not used to int erpret this result as normal/abnormal . [facility] StationAucispmCUEPMLPRGC7792-70-03 10:02:00 Test Item Value Reference Range Interpretation Comments Segs-Bands # (test code = Segs-Bands #) 2.8 1.5-8.1 N [facility] StationRiimitxJVLMBVCEAX5233-27-40 10:02:00 Test Item Value Reference Range Interpretation Comments Lymphocytes # (test code = Lymphocytes 1.7 1.0-5.5 N #) [facility] StationTvrmnonKVYTDWOILL1598-58-89 10:02:00 Test Item Value Reference Range Interpretation Comments Basophils (test code = 0.6 See_Comment N [Aut omated message] The Basophils) system which ge nerated this result tra nsmitted reference range : <=1.0. The reference r leo was not used to int erpret this result as normal/abnormal . [facility] StationUqrhzuvDSTODCQFMQ9987-68-69 10:02:00 Test Item Value Reference Range Interpretation Comments Monocytes (test code = Monocytes) 6.9 2.0-12.0 N [facility] StationVwjphzcKEMFUKKRDS0008-82-11 10:02:00 Test Item Value Reference Range Interpretation Comments Eosinophils (test code = 2.0 See_Comment N [A utomated message] The Eosinophils) system which ge nerated this result tra nsmitted reference range : <=4.0. The reference r leo was not used to int erpret this result as normal/abnormal . [facility] StationKkczfolQTHFAXUQEC8269-03-54 10:02:00 Test Item Value Reference Range Interpretation Comments Segs (test code = Segs) 55.8 45.0-75.0 N [facility] StationGhiadljCKVXBANQDF8893-07-94 10:02:00 Test Item Value Reference Range Interpretation Comments Lymphocytes (test code = Lymphocytes) 34.7 20.0-40.0 N [facility] StationPdoindrQWFUHFDVQI4642-25-25 10:02:00 Test Item Value Reference Range Interpretation Comments PTT (test code = PTT) 32.2 s 22.9-35.8 N [facility] StationYmuodloAZHLXUSXIA1706-93-73 10:02:00 Test Item Value Reference Range Interpretation Comments PT (test code = PT) 13.3 s 12.0-14.7 N [facility] StationPzlpkpzBWCLOUNKSS0708-60-91 10:02:00 Test Item Value Reference Range Interpretation Comments INR (test code = INR) 1.01 0.85-1.17 N [facility] StationPevbwikNYOTFARSIB6029-01-09 10:02:00 Test Item Value Reference Range Interpretation Comments Hct (test code = Hct) 27.5 36.0-48.0 L [facility] StationYkhhlviSZRNCICRGH2714-15-47 10:02:00 Test Item Value Reference Range Interpretation Comments RBC (test code = RBC) 3.34 4.20-5.40 L [facility] StationEvbuwuhFGTURGLWWB2290-60-48 10:02:00 Test Item Value Reference Range Interpretation Comments Hgb (test code = Hgb) 9.7 12.0-16.0 L [facility] StationEpzvuyzLFWYKQAFWA7206-85-37 10:02:00 Test Item Value Reference Range Interpretation Comments WBC (test code = WBC) 5.0 3.7-10.4 N [facility] StationFjhveoaCUVAOAFTTW6103-29-31 10:02:00 Test Item Value Reference Range Interpretation Comments MPV (test code = MPV) 9.2 7.4-10.4 N [facility] StationHvmegzpLHWWOXHLVX6607-94-18 10:02:00 Test Item Value Reference Range Interpretation Comments Platelet (test code = Platelet) 240 133-450 N [facility] StationPlcodveLNQDCQSEHB3233-04-57 10:02:00 Test Item Value Reference Range Interpretation Comments RDW (test code = RDW) 14.3 11.5-14.5 N [facility] StationDfiymufIDMPVDODWD7143-91-73 10:02:00 Test Item Value Reference Range Interpretation Comments MCHC (test code = MCHC) 35.2 32.0-36.0 N [facility] StationWrjqzdnLXIGUJDCJW5875-11-87 10:02:00 Test Item Value Reference Range Interpretation Comments MCH (test code = MCH) 28.9 pg 27.0-31.0 N [facility] StationEcmtkfcYHJYBPATSR3637-39-13 10:02:00 Test Item Value Reference Range Interpretation Comments MCV (test code = MCV) 82.1 81.0-99.0 N [facility] HospitalHfgohcpJABWFUBEP6434-33-39 09:24:00 Test Item Value Reference Range Interpretation Comments Magnesium Lvl (test code = Magnesium 2.1 1.8-2.4 N Lvl) [facility] HospitalNymgwqdVKYXCZEVR5310-23-29 09:24:00 Test Item Value Reference Range Interpretation Comments Magnesium Lvl (test code = Magnesium 2.1 1.8-2.4 N Lvl) [facility] HospitalXgdvsdjBCYXJZOZE2593-29-44 09:24:00 Test Item Value Reference Range Interpretation Comments Magnesium Lvl (test code = Magnesium 2.1 1.8-2.4 N Lvl) [facility] HospitalJvvvgkgAGOYZTPIY7170-74-61 09:24:00 Test Item Value Reference Range Interpretation Comments Magnesium Lvl (test code = Magnesium 2.1 1.8-2.4 N Lvl) [facility] HospitalJehaittAUYMHMSRE1589-52-55 09:24:00 Test Item Value Reference Range Interpretation Comments Magnesium Lvl (test code = Magnesium 2.1 1.8-2.4 N Lvl) [facility] HospitalSyvilbwDczeeimwpwwc9516-03-38 00:32:00 Test Item Value Reference Range Interpretation Comments Culture: Aspirate/Body Fluid/Tissue (test code = Culture: Aspirate/Body Fluid/Tissue) [facility] HospitalQamtajyYuskoeiosbbz7021-24-83 00:32:00 Test Item Value Reference Range Interpretation Comments Culture: Anaerobic (test code = Culture: Anaerobic) [facility] HospitalGlabgawHcwdlmijuixd0638-01-67 00:32:00 Test Item Value Reference Range Interpretation Comments Culture: Aspirate/Body Fluid/Tissue (test code = Culture: Aspirate/Body Fluid/Tissue) [facility] HospitalUifacemXhmaepiueufj8052-71-28 00:32:00 Test Item Value Reference Range Interpretation Comments Culture: Anaerobic (test code = Culture: Anaerobic) [facility] HospitalYuedbppEzfwvozlrfcs1202-11-45 00:32:00 Test Item Value Reference Range Interpretation Comments Culture: Aspirate/Body Fluid/Tissue (test code = Culture: Aspirate/Body Fluid/Tissue) [facility] HospitalAgvkygsVxdipwxndcgc9427-04-09 00:32:00 Test Item Value Reference Range Interpretation Comments Culture: Anaerobic (test code = Culture: Anaerobic) [facility] HospitalFjaunpuGjknohtiluob2201-64-55 00:32:00 Test Item Value Reference Range Interpretation Comments Culture: Aspirate/Body Fluid/Tissue (test code = Culture: Aspirate/Body Fluid/Tissue) [facility] HospitalNojulraXfsnnoknfyfp7285-91-53 00:32:00 Test Item Value Reference Range Interpretation Comments Culture: Anaerobic (test code = Culture: Anaerobic) [facility] HospitalHngrhmoEgqbxmenjywj2632-96-08 00:32:00 Test Item Value Reference Range Interpretation Comments Culture: Aspirate/Body Fluid/Tissue (test code = Culture: Aspirate/Body Fluid/Tissue) [facility] HospitalWcrubfiJohtqitywgbs4178-57-07 00:32:00 Test Item Value Reference Range Interpretation Comments Culture: Anaerobic (test code = Culture: Anaerobic) [facility] HospitalDtqlialZYHZOQAOV7261-89-87 17:10:00 Test Item Value Reference Range Interpretation Comments Temp Roberth (test code = Temp Roberth) 37.0 [facility] HospitalIkszcrgKXVASFMOO2373-00-96 17:10:00 Test Item Value Reference Range Interpretation Comments O2 Sat Roberth (test code = O2 Sat Roberth) 27.0 40.0-70.0 L [facility] HospitalQciojnqQCPBCRNWV5585-59-23 17:10:00 Test Item Value Reference Range Interpretation Comments pCO2 Roberth (test code = pCO2 Roberth) 47 38-52 N [facility] HospitalAwicmulTBKLGFHBL1018-81-65 17:10:00 Test Item Value Reference Range Interpretation Comments pH Roberth (test code = pH Roberth) 7.37 7.28-7.42 N [facility] HospitalHxbupjnKHOHCQRCY9986-67-06 17:10:00 Test Item Value Reference Range Interpretation Comments BE Roberth (test code = 1 See_Comment N [Automa rohit message] The BE Roberth) system which ge nerated this result transmit rohit reference range : <=2. The reference range was not used to interpr et this result as reji l/abnormal. [facility] HospitalEggjkdvTNTKKUQRQ3972-78-01 17:10:00 Test Item Value Reference Range Interpretation Comments HCO3 Roberth (test code = HCO3 Roberth) 27.2 22.0-26.0 H [facility] HospitalMmgpicjBQTJWHERC3398-92-68 17:10:00 Test Item Value Reference Range Interpretation Comments pO2 Roberth (test code = pO2 Roberth) 19 20-49 L [facility] HospitalJfadydnUWMYOTMND5266-10-55 17:10:00 Test Item Value Reference Range Interpretation Comments Temp Roberth (test code = Temp Roberth) 37.0 [facility] HospitalOzslkfnJFYELBNFN2321-69-91 17:10:00 Test Item Value Reference Range Interpretation Comments O2 Sat Roberth (test code = O2 Sat Roberth) 27.0 40.0-70.0 L [facility] HospitalGcfqjcpXFWABUCNB8505-99-45 17:10:00 Test Item Value Reference Range Interpretation Comments pCO2 Roberth (test code = pCO2 Roberth) 47 38-52 N [facility] HospitalVnxujudISDKUQCPC4715-55-21 17:10:00 Test Item Value Reference Range Interpretation Comments pH Roberth (test code = pH Roberth) 7.37 7.28-7.42 N [facility] HospitalKurmbudJVUYZDKWD7293-21-80 17:10:00 Test Item Value Reference Range Interpretation Comments BE Roberth (test code = 1 See_Comment N [Automa rohit message] The BE Roberth) system which ge nerated this result transmit rohit reference range : <=2. The reference range was not used to interpr et this result as reji l/abnormal. [facility] HospitalLowmdicIWUNGQTFB4856-49-31 17:10:00 Test Item Value Reference Range Interpretation Comments HCO3 Roberth (test code = HCO3 Roberth) 27.2 22.0-26.0 H [facility] HospitalZmilxekSYZSUHYTH8591-01-80 17:10:00 Test Item Value Reference Range Interpretation Comments pO2 Roberth (test code = pO2 Roberth) 19 20-49 L [facility] HospitalIazvafaXNQFQJJKE4964-89-07 17:10:00 Test Item Value Reference Range Interpretation Comments Temp Roberth (test code = Temp Roberth) 37.0 [facility] HospitalErnfdsrYCCZMCKOF9310-47-36 17:10:00 Test Item Value Reference Range Interpretation Comments O2 Sat Roberth (test code = O2 Sat Roberth) 27.0 40.0-70.0 L [facility] HospitalOturkvmHONTTMBML5600-50-89 17:10:00 Test Item Value Reference Range Interpretation Comments pCO2 Roberth (test code = pCO2 Roberth) 47 38-52 N [facility] HospitalAdaprprEFMILVAML5868-59-07 17:10:00 Test Item Value Reference Range Interpretation Comments pH Roberth (test code = pH Roberth) 7.37 7.28-7.42 N [facility] HospitalRaltoltLGPHOWWIH3039-33-39 17:10:00 Test Item Value Reference Range Interpretation Comments BE Roberth (test code = 1 See_Comment N [Automa rohit message] The BE Roberth) system which ge nerated this result transmit rohit reference range : <=2. The reference range was not used to interpr et this result as reji l/abnormal. [facility] HospitalDeffzjfNKMYFVWVJ4356-67-46 17:10:00 Test Item Value Reference Range Interpretation Comments HCO3 Roberth (test code = HCO3 Roberth) 27.2 22.0-26.0 H [facility] HospitalKlechdyBQHKRUOAZ7024-42-30 17:10:00 Test Item Value Reference Range Interpretation Comments pO2 Roberth (test code = pO2 Roberth) 19 20-49 L [facility] HospitalAnpbrypXEKVBGQLL9456-93-08 17:10:00 Test Item Value Reference Range Interpretation Comments Temp Roberth (test code = Temp Roberth) 37.0 [facility] HospitalRcohalkIITFUUMBJ7567-82-25 17:10:00 Test Item Value Reference Range Interpretation Comments O2 Sat Roberth (test code = O2 Sat Roberth) 27.0 40.0-70.0 L [facility] HospitalCwmhudvMSNXINBSC3172-22-42 17:10:00 Test Item Value Reference Range Interpretation Comments pCO2 Roberth (test code = pCO2 Roberth) 47 38-52 N [facility] HospitalUtxsrhbORMXQMXHH0559-44-51 17:10:00 Test Item Value Reference Range Interpretation Comments pH Roberth (test code = pH Roberth) 7.37 7.28-7.42 N [facility]DyhxdpaOLWFBQSLJ9593-35-57 17:10:00 Test Item Value Reference Range Interpretation Comments BE Roberth (test code = 1 See_Comment N [Automa rohit message] The BE Roberth) system which ge nerated this result transmit rohit reference range : <=2. The reference range was not used to interpr et this result as reji l/abnormal. [facility]landTcrtsewDHCFCRZWE5025-13-26 17:10:00 Test Item Value Reference Range Interpretation Comments HCO3 Roberth (test code = HCO3 Roberth) 27.2 22.0-26.0 H [facility]landYlgzdtfAGRJWSXKB3620-87-77 17:10:00 Test Item Value Reference Range Interpretation Comments pO2 Roberth (test code = pO2 Roberth) 19 20-49 L [facility]landAfgniwdUEDMPYIOO0485-43-16 17:10:00 Test Item Value Reference Range Interpretation Comments Temp Roberth (test code = Temp Roberth) 37.0 [facility]landRnyuehbWIVTIEPLX6995-39-04 17:10:00 Test Item Value Reference Range Interpretation Comments O2 Sat Roberth (test code = O2 Sat Roberth) 27.0 40.0-70.0 L [facility]landOwpaionHEAAPHVKD8287-74-42 17:10:00 Test Item Value Reference Range Interpretation Comments pCO2 Roberth (test code = pCO2 Roberth) 47 38-52 N [facility]landVfkaaabRXFQNGELO6029-61-36 17:10:00 Test Item Value Reference Range Interpretation Comments pH Roberth (test code = pH Roberth) 7.37 7.28-7.42 N [facility]landZupyilzLTHBBACIO2592-00-26 17:10:00 Test Item Value Reference Range Interpretation Comments BE Roberth (test code = 1 See_Comment N [Automa rohit message] The BE Roberth) system which ge nerated this result transmit rohit reference range : <=2. The reference range was not used to interpr et this result as reji l/abnormal. [facility]landEgzwshwBFZADAUKZ8769-05-57 17:10:00 Test Item Value Reference Range Interpretation Comments HCO3 Roberth (test code = HCO3 Roberth) 27.2 22.0-26.0 H [facility]landLoxfhhzTRCRAJXBA0964-38-44 17:10:00 Test Item Value Reference Range Interpretation Comments pO2 Roberth (test code = pO2 Roberth) 19 20-49 L [facility] HospitalEhoobnyBmczolnefqio2536-31-26 14:18:00 Test Item Value Reference Range Interpretation Comments Culture: Blood (test code = Culture: Blood) [facility] HospitalDforwpdGfjjkcncqqdb5296-62-14 14:18:00 Test Item Value Reference Range Interpretation Comments Culture: Wound/Abscess w/Gram Stain (test code = Culture: Wound/Abscess w/Gram Stain) [facility] HospitalEdjlglzWzcytysoinwx2897-74-02 14:18:00 Test Item Value Reference Range Interpretation Comments Culture: Blood (test code = Culture: Blood) [facility] HospitalFeovsqrKcmsmxtjpkpi8736-17-94 14:18:00 Test Item Value Reference Range Interpretation Comments Culture: Wound/Abscess w/Gram Stain (test code = Culture: Wound/Abscess w/Gram Stain) [facility] HospitalVqhcfldNwudueidqnfb9149-01-43 14:18:00 Test Item Value Reference Range Interpretation Comments Culture: Blood (test code = Culture: Blood) [facility] HospitalZjvoehzBquvlypteknr5040-13-68 14:18:00 Test Item Value Reference Range Interpretation Comments Culture: Wound/Abscess w/Gram Stain (test code = Culture: Wound/Abscess w/Gram Stain) [facility] HospitalLdgyuluCwwfmpcgibbx1270-90-51 14:18:00 Test Item Value Reference Range Interpretation Comments Culture: Blood (test code = Culture: Blood) [facility] HospitalZlwsiakMjzvlahwssqu2021-36-92 14:18:00 Test Item Value Reference Range Interpretation Comments Culture: Wound/Abscess w/Gram Stain (test code = Culture: Wound/Abscess w/Gram Stain) [facility] HospitalMobfrukKsiodvmslgur8883-64-69 14:18:00 Test Item Value Reference Range Interpretation Comments Culture: Blood (test code = Culture: Blood) [facility] HospitalUoftyliCufqsoxeiesd9836-52-29 14:18:00 Test Item Value Reference Range Interpretation Comments Culture: Wound/Abscess w/Gram Stain (test code = Culture: Wound/Abscess w/Gram Stain) [facility] HospitalXapzykyIYUHFMOXD6932-13-90 13:09:00 Test Item Value Reference Range Interpretation Comments Lactic Acid Lvl (test code = Lactic 1.0 0.5-2.2 N Acid Lvl) [facility] HospitalNntcpjaIEXBSPWIY9990-38-21 13:09:00 Test Item Value Reference Range Interpretation Comments Lactic Acid Lvl (test code = Lactic 1.0 0.5-2.2 N Acid Lvl) [facility] HospitalIvgfysrMOVYZAGGO8540-39-70 13:09:00 Test Item Value Reference Range Interpretation Comments Lactic Acid Lvl (test code = Lactic 1.0 0.5-2.2 N Acid Lvl) [facility] HospitalFpeuykyURNYKMFPA6437-15-34 13:09:00 Test Item Value Reference Range Interpretation Comments Lactic Acid Lvl (test code = Lactic 1.0 0.5-2.2 N Acid Lvl) [facility] HospitalWpvmgzdNLVYALDCC7177-51-41 13:09:00 Test Item Value Reference Range Interpretation Comments Lactic Acid Lvl (test code = Lactic 1.0 0.5-2.2 N Acid Lvl) [facility] HospitalXjxezqbFNURIJHVR4046-31-88 12:20:00 Test Item Value Reference Range Interpretation Comments U Preg (test code = U Negative (09/01/2011 N Preg) 07:20:00) [facility] AreaScujvfxBQYJSIAPTK0704-21-16 12:20:00 Test Item Value Reference Range Interpretation Comments UA Sq Epi (test code Occasional /LPF N = UA Sq Epi) (09/01/2011 07:20:00) [facility] AreaKnakkgqDLKVLHFPAF3529-39-28 12:20:00 Test Item Value Reference Range Interpretation Comments UA Leuk Est (test Negative (09/01/2011 N code = UA Leuk Est) 07:20:00) [facility] [place] AreaEiwsquwHWXNJWBTIF6376-87-56 12:20:00 Test Item Value Reference Range Interpretation Comments UA Nitrite (test code Negative (09/01/2011 N = UA Nitrite) 07:20:00) [facility] AreaHymmqlhCOAKLBICBK0271-99-38 12:20:00 Test Item Value Reference Range Interpretation Comments UA Urobilinogen (test code = UA 0.2 0.1-1.0 N Urobilinogen) [facility]GymyyieUKVFZEHMUI5021-07-19 12:20:00 Test Item Value Reference Range Interpretation Comments UA Blood (test code = Negative (09/01/2011 N UA Blood) 07:20:00) [facility] HospitalObeysriGCHCMJMFOX7772-53-77 12:20:00 Test Item Value Reference Range Interpretation Comments UA Ketones (test code = >=80 mg/dL A UA Ketones) *ABN*(09/01/2011 07:20:00) [facility] HospitalTdskjoeMKYVVFINCM2378-16-15 12:20:00 Test Item Value Reference Range Interpretation Comments UA Protein (test code Negative (09/01/2011 N = UA Protein) 07:20:00) [facility]RyquqlzYBXQXNMWPY6533-51-13 12:20:00 Test Item Value Reference Range Interpretation Comments UA pH (test code = UA pH) 6.0 1 5.0-8.0 N [facility]burgYqhineeBMWRMTICXA5225-97-09 12:20:00 Test Item Value Reference Range Interpretation Comments UA Bili (test code = Negative (09/01/2011 N UA Bili) 07:20:00) [facility]burgIugjgvhOMZKAVYMNL7354-18-73 12:20:00 Test Item Value Reference Range Interpretation Comments UA Glucose (test code = >=1000 mg/dL A UA Glucose) *ABN*(09/01/2011 07:20:00) [facility] HospitalTwxmrnpZOHOBIFVSH1850-98-55 12:20:00 Test Item Value Reference Range Interpretation Comments UA Spec Grav (test code = UA Spec 1.035 1 H Grav) [facility]burgFhksdarTFTCARTMTG8014-01-46 12:20:00 Test Item Value Reference Range Interpretation Comments UA Turbidity (test code = Clear (09/01/2011 N UA Turbidity) 07:20:00) [facility]burgKixtxxjKIFFQLMOKC7434-66-91 12:20:00 Test Item Value Reference Range Interpretation Comments UA Color (test code = Yellow *NA*(09/01/2011 UA Color) 07:20:00) [facility]burgLrvydneZWLKIXBWR9632-04-95 12:20:00 Test Item Value Reference Range Interpretation Comments U Preg (test code = U Negative (09/01/2011 N Preg) 07:20:00) [facility]burgVefhkejVNHGSSWZGO0983-36-73 12:20:00 Test Item Value Reference Range Interpretation Comments UA Sq Epi (test code Occasional /LPF N = UA Sq Epi) (09/01/2011 07:20:00) [facility]burgSlgkpouLXVXLGRNBK5120-05-43 12:20:00 Test Item Value Reference Range Interpretation Comments UA Leuk Est (test Negative (09/01/2011 N code = UA Leuk Est) 07:20:00) [facility]burgVntaitjBAVKVVHJOH8282-47-79 12:20:00 Test Item Value Reference Range Interpretation Comments UA Nitrite (test code Negative (09/01/2011 N = UA Nitrite) 07:20:00) [facility] HospitalUfhcovcYWTYLYQJDW3357-19-40 12:20:00 Test Item Value Reference Range Interpretation Comments UA Urobilinogen (test code = UA 0.2 0.1-1.0 N Urobilinogen) [facility] HospitalPvtyvifPQMPFJLDWH2262-80-18 12:20:00 Test Item Value Reference Range Interpretation Comments UA Blood (test code = Negative (09/01/2011 N UA Blood) 07:20:00) [facility] HospitalMkglicwVHYLFLOYFJ8581-73-19 12:20:00 Test Item Value Reference Range Interpretation Comments UA Ketones (test code = >=80 mg/dL A UA Ketones) *ABN*(09/01/2011 07:20:00) [facility] HospitalVtvbcrgPKGJRLMCQE9148-49-65 12:20:00 Test Item Value Reference Range Interpretation Comments UA Protein (test code Negative (09/01/2011 N = UA Protein) 07:20:00) [facility] HospitalBndxdygEWHUCFTWQS9380-95-95 12:20:00 Test Item Value Reference Range Interpretation Comments UA pH (test code = UA pH) 6.0 1 5.0-8.0 N [facility] HospitalKloqxxbMSRFEXVYPT0959-77-72 12:20:00 Test Item Value Reference Range Interpretation Comments UA Bili (test code = Negative (09/01/2011 N UA Bili) 07:20:00) [facility] HospitalRtkmnaeBUSQHEJUQI3867-81-38 12:20:00 Test Item Value Reference Range Interpretation Comments UA Glucose (test code = >=1000 mg/dL A UA Glucose) *ABN*(09/01/2011 07:20:00) [facility] HospitalGxwfktiPYORUBPWPI9590-60-29 12:20:00 Test Item Value Reference Range Interpretation Comments UA Spec Grav (test code = UA Spec 1.035 1 H Grav) [facility] HospitalPoazunjSWFKZIUDPM1083-21-59 12:20:00 Test Item Value Reference Range Interpretation Comments UA Turbidity (test code = Clear (09/01/2011 N UA Turbidity) 07:20:00) [facility] HospitalVqmamfmHSIFUTNOUQ4888-33-92 12:20:00 Test Item Value Reference Range Interpretation Comments UA Color (test code = Yellow *NA*(09/01/2011 UA Color) 07:20:00) [facility]burgHiyhtsoRNSICOVZJ9891-35-18 12:20:00 Test Item Value Reference Range Interpretation Comments U Preg (test code = U Negative (09/01/2011 N Preg) 07:20:00) [facility]burgUkpxrthIHONMAKXDY1969-26-31 12:20:00 Test Item Value Reference Range Interpretation Comments UA Sq Epi (test code Occasional /LPF N = UA Sq Epi) (09/01/2011 07:20:00) [facility]landDijfalnJHJSTKEUPN0270-26-66 12:20:00 Test Item Value Reference Range Interpretation Comments UA Leuk Est (test Negative (09/01/2011 N code = UA Leuk Est) 07:20:00) [facility]burgLcepsafPFBIMXDXLJ4339-47-46 12:20:00 Test Item Value Reference Range Interpretation Comments UA Nitrite (test code Negative (09/01/2011 N = UA Nitrite) 07:20:00) [facility]burgPzjiezuAQMGOYXBDJ1599-76-09 12:20:00 Test Item Value Reference Range Interpretation Comments UA Urobilinogen (test code = UA 0.2 0.1-1.0 N Urobilinogen) [facility]burgMaxxkxaEEBZYIWRJA0862-74-40 12:20:00 Test Item Value Reference Range Interpretation Comments UA Blood (test code = Negative (09/01/2011 N UA Blood) 07:20:00) [facility]burgCcoucpzONXAUXVKKZ1621-52-89 12:20:00 Test Item Value Reference Range Interpretation Comments UA Ketones (test code = >=80 mg/dL A UA Ketones) *ABN*(09/01/2011 07:20:00) [facility]burgDqjsleyTTLDKKTMOA2339-38-56 12:20:00 Test Item Value Reference Range Interpretation Comments UA Protein (test code Negative (09/01/2011 N = UA Protein) 07:20:00) [facility]burgIofvqeoHAFZLEXKNU1272-78-26 12:20:00 Test Item Value Reference Range Interpretation Comments UA pH (test code = UA pH) 6.0 1 5.0-8.0 N [facility]burgUpwtrlzUQRIOPKGOY9340-97-50 12:20:00 Test Item Value Reference Range Interpretation Comments UA Bili (test code = Negative (09/01/2011 N UA Bili) 07:20:00) [facility]burgSgzfcfqFXBYZNZJGN9718-27-07 12:20:00 Test Item Value Reference Range Interpretation Comments UA Glucose (test code = >=1000 mg/dL A UA Glucose) *ABN*(09/01/2011 07:20:00) [facility]burgNawclrrYQJLUESLIH5873-91-48 12:20:00 Test Item Value Reference Range Interpretation Comments UA Spec Grav (test code = UA Spec 1.035 1 H Grav) [facility]burgQgttagwZTTLBQMILI1790-59-47 12:20:00 Test Item Value Reference Range Interpretation Comments UA Turbidity (test code = Clear (09/01/2011 N UA Turbidity) 07:20:00) [facility]burgXyvgyveXZRHKOXBZM7328-14-08 12:20:00 Test Item Value Reference Range Interpretation Comments UA Color (test code = Yellow *NA*(09/01/2011 UA Color) 07:20:00) [facility]burgChhebxxCPGHPMBKC8035-31-88 12:20:00 Test Item Value Reference Range Interpretation Comments U Preg (test code = U Negative (09/01/2011 N Preg) 07:20:00) [facility]burgZkucqnePFOIRTJOJR1245-16-19 12:20:00 Test Item Value Reference Range Interpretation Comments UA Sq Epi (test code Occasional /LPF N = UA Sq Epi) (09/01/2011 07:20:00) [facility]burgRzwbvjdARHUTLCNOJ7754-71-01 12:20:00 Test Item Value Reference Range Interpretation Comments UA Leuk Est (test Negative (09/01/2011 N code = UA Leuk Est) 07:20:00) [facility]burgPwhvaxqHRGMDMICHI5167-07-98 12:20:00 Test Item Value Reference Range Interpretation Comments UA Nitrite (test code Negative (09/01/2011 N = UA Nitrite) 07:20:00) [facility]burgKdqzywfZOTEVQQSKR1508-63-79 12:20:00 Test Item Value Reference Range Interpretation Comments UA Urobilinogen (test code = UA 0.2 0.1-1.0 N Urobilinogen) [facility]burgNemqhnlLEFQSXZYRT7163-40-38 12:20:00 Test Item Value Reference Range Interpretation Comments UA Blood (test code = Negative (09/01/2011 N UA Blood) 07:20:00) [facility] PearlandQggdfqyMIYBCPPJAG2248-53-03 12:20:00 Test Item Value Reference Range Interpretation Comments UA Ketones (test code = >=80 mg/dL A UA Ketones) *ABN*(09/01/2011 07:20:00) [facility]burgWpxeufkYBHMGMIBDE3517-27-63 12:20:00 Test Item Value Reference Range Interpretation Comments UA Protein (test code Negative (09/01/2011 N = UA Protein) 07:20:00) [facility] HospitalEumnbjeSMFEDBJRDZ4745-08-56 12:20:00 Test Item Value Reference Range Interpretation Comments UA pH (test code = UA pH) 6.0 1 5.0-8.0 N [facility]burgPryihvlQLMZNHQCVB3633-27-82 12:20:00 Test Item Value Reference Range Interpretation Comments UA Bili (test code = Negative (09/01/2011 N UA Bili) 07:20:00) [facility] HospitalOdgmrnbMVQYQWDZFQ1502-53-61 12:20:00 Test Item Value Reference Range Interpretation Comments UA Glucose (test code = >=1000 mg/dL A UA Glucose) *ABN*(09/01/2011 07:20:00) [facility] HospitalFkonmsnZLJAVRZKFE2414-04-25 12:20:00 Test Item Value Reference Range Interpretation Comments UA Spec Grav (test code = UA Spec 1.035 1 H Grav) [facility]burgVacvtlhDMSFBNVHZT7435-88-72 12:20:00 Test Item Value Reference Range Interpretation Comments UA Turbidity (test code = Clear (09/01/2011 N UA Turbidity) 07:20:00) [facility] HospitalCxqpmpeZEAJTMSZVX5275-99-77 12:20:00 Test Item Value Reference Range Interpretation Comments UA Color (test code = Yellow *NA*(09/01/2011 UA Color) 07:20:00) [facility]burgXjgilivONZMLIKYD7926-97-21 12:20:00 Test Item Value Reference Range Interpretation Comments U Preg (test code = U Negative (09/01/2011 N Preg) 07:20:00) [facility] HospitalJmyvjmfKDLIKLSOVQ7318-39-86 12:20:00 Test Item Value Reference Range Interpretation Comments UA Sq Epi (test code Occasional /LPF N = UA Sq Epi) (09/01/2011 07:20:00) [facility] HospitalJyqyrkfUHNCSYUNXA8016-58-09 12:20:00 Test Item Value Reference Range Interpretation Comments UA Leuk Est (test Negative (09/01/2011 N code = UA Leuk Est) 07:20:00) [facility] HospitalCmztkbcGXSBYUVXVK2734-64-99 12:20:00 Test Item Value Reference Range Interpretation Comments UA Nitrite (test code Negative (09/01/2011 N = UA Nitrite) 07:20:00) [facility] HospitalFumrvesFUKGQWSMGG2824-59-71 12:20:00 Test Item Value Reference Range Interpretation Comments UA Urobilinogen (test code = UA 0.2 0.1-1.0 N Urobilinogen) [facility] HospitalSkeruouWHOOEIBBVN1292-20-83 12:20:00 Test Item Value Reference Range Interpretation Comments UA Blood (test code = Negative (09/01/2011 N UA Blood) 07:20:00) [facility] HospitalKmhfpbpFVASCVFKLE5530-55-44 12:20:00 Test Item Value Reference Range Interpretation Comments UA Ketones (test code = >=80 mg/dL A UA Ketones) *ABN*(09/01/2011 07:20:00) [facility] AreaSuyufncFBCYLWEGWE1938-54-46 12:20:00 Test Item Value Reference Range Interpretation Comments UA Protein (test code Negative (09/01/2011 N = UA Protein) 07:20:00) [facility] AreaNqkxqbnQZOUEREISM0852-85-21 12:20:00 Test Item Value Reference Range Interpretation Comments UA pH (test code = UA pH) 6.0 1 5.0-8.0 N [facility] HospitalPhizxqvKBFYUBYLHY3561-81-11 12:20:00 Test Item Value Reference Range Interpretation Comments UA Bili (test code = Negative (09/01/2011 N UA Bili) 07:20:00) [facility] HospitalXpodcezOPYHBXQZTK1458-20-31 12:20:00 Test Item Value Reference Range Interpretation Comments UA Glucose (test code = >=1000 mg/dL A UA Glucose) *ABN*(09/01/2011 07:20:00) [facility] HospitalStlfoshJIRQSZUXTP4798-41-12 12:20:00 Test Item Value Reference Range Interpretation Comments UA Spec Grav (test code = UA Spec 1.035 1 H Grav) [facility] HospitalOerzygoHBOABVZUJZ0282-07-36 12:20:00 Test Item Value Reference Range Interpretation Comments UA Turbidity (test code = Clear (09/01/2011 N UA Turbidity) 07:20:00) [facility] HospitalWwntzspKRKVEYIYYT5340-97-95 12:20:00 Test Item Value Reference Range Interpretation Comments UA Color (test code = Yellow *NA*(09/01/2011 UA Color) 07:20:00) [facility]GcojytvCTGMXQDKE4090-76-42 08:00:00 Test Item Value Reference Range Interpretation Comments Lactic Acid Lvl (test code = Lactic 2.8 0.5-2.2 H Acid Lvl) [facility] HospitalWfeaeqmBEHORFRUT2927-33-42 08:00:00 Test Item Value Reference Range Interpretation Comments Lactic Acid Lvl (test code = Lactic 2.8 0.5-2.2 H Acid Lvl) [facility] HospitalCkmhzbbTIFJUSYKI9299-93-20 08:00:00 Test Item Value Reference Range Interpretation Comments Lactic Acid Lvl (test code = Lactic 2.8 0.5-2.2 H Acid Lvl) [facility] HospitalWwirmovKMHJEARHE3837-48-38 08:00:00 Test Item Value Reference Range Interpretation Comments Lactic Acid Lvl (test code = Lactic 2.8 0.5-2.2 H Acid Lvl) [facility] HospitalWnbktyuFRDJGPXKU0935-57-73 08:00:00 Test Item Value Reference Range Interpretation Comments Lactic Acid Lvl (test code = Lactic 2.8 0.5-2.2 H Acid Lvl) [facility] HospitalPhuudejINGNILGEZ8246-87-16 07:47:00 Test Item Value Reference Range Interpretation Comments Magnesium Lvl (test code = Magnesium 1.5 1.8-2.4 L Lvl) [facility] StationIehnfsfICBADAEARN5864-28-22 07:47:00 Test Item Value Reference Range Interpretation Comments Polychrom (test code = Slight (09/01/2011 N Polychrom) 02:47:00) [facility] StationRoztpxrVTAKFWHKUS7524-04-82 07:47:00 Test Item Value Reference Range Interpretation Comments Anisocyte (test code = 1+ *ABN*(09/01/2011 A Anisocyte) 02:47:00) [facility] StationIplrcwvOXFXGFOHBF9227-41-30 07:47:00 Test Item Value Reference Range Interpretation Comments Large Plt (test code = Slight *ABN*(09/01/2011 A Large Plt) 02:47:00) [facility] StationQpbivikYVTEVBHOJX6654-88-90 07:47:00 Test Item Value Reference Range Interpretation Comments Tear Cell (test code = Tear Cell) Occasional [place] [id number] 07:47:00 Test Item Value Reference Range Interpretation Comments Elliptocyte (test code = Slight A Elliptocyte) *ABN*(09/01/2011 02:47:00) [facility] HospitalUamqdzqOCLJJNSSB7212-50-15 07:47:00 Test Item Value Reference Range Interpretation Comments Magnesium Lvl (test code = Magnesium 1.5 1.8-2.4 L Lvl) [facility] StationHscilrqAQAABFQCCE4426-79-64 07:47:00 Test Item Value Reference Range Interpretation Comments Polychrom (test code = Slight (09/01/2011 N Polychrom) 02:47:00) [facility] StationSlpscsdBKNAQLANOH3566-24-96 07:47:00 Test Item Value Reference Range Interpretation Comments Anisocyte (test code = 1+ *ABN*(09/01/2011 A Anisocyte) 02:47:00) [facility] StationBjqgelqEDHGWKUCLU1771-94-38 07:47:00 Test Item Value Reference Range Interpretation Comments Large Plt (test code = Slight *ABN*(09/01/2011 A Large Plt) 02:47:00) [facility] StationTimrojmOZTTOLUVHP4008-49-71 07:47:00 Test Item Value Reference Range Interpretation Comments Tear Cell (test code = Tear Cell) Occasional [facility] StationSsylmgyFHCRUQTVYV0304-38-55 07:47:00 Test Item Value Reference Range Interpretation Comments Elliptocyte (test code = Slight A Elliptocyte) *ABN*(09/01/2011 02:47:00) [facility] HospitalJhbidwdKQQZNBXZY8677-37-66 07:47:00 Test Item Value Reference Range Interpretation Comments Magnesium Lvl (test code = Magnesium 1.5 1.8-2.4 L Lvl) [facility] StationAzohsxiVXYWOMCWDH9521-10-00 07:47:00 Test Item Value Reference Range Interpretation Comments Polychrom (test code = Slight (09/01/2011 N Polychrom) 02:47:00) [facility] StationBrkqqjxNZGHWEHADQ8993-50-10 07:47:00 Test Item Value Reference Range Interpretation Comments Anisocyte (test code = 1+ *ABN*(09/01/2011 A Anisocyte) 02:47:00) [facility] StationMywdmswZTQKWVDVLU5789-40-23 07:47:00 Test Item Value Reference Range Interpretation Comments Large Plt (test code = Slight *ABN*(09/01/2011 A Large Plt) 02:47:00) [facility] StationVorznfiIWZKQTXGPI1053-48-38 07:47:00 Test Item Value Reference Range Interpretation Comments Tear Cell (test code = Tear Cell) Occasional [facility] StationKuwqqdiIBGETUIKOG2204-84-72 07:47:00 Test Item Value Reference Range Interpretation Comments Elliptocyte (test code = Slight A Elliptocyte) *ABN*(09/01/2011 02:47:00) [facility] HospitalYnlrixpBMAAYVKIY7132-42-63 07:47:00 Test Item Value Reference Range Interpretation Comments Magnesium Lvl (test code = Magnesium 1.5 1.8-2.4 L Lvl) [facility] StationWbuqzsfLAKTURTRHA2119-94-18 07:47:00 Test Item Value Reference Range Interpretation Comments Polychrom (test code = Slight (09/01/2011 N Polychrom) 02:47:00) [facility] StationIfmfyalJOIVRKGBBG3585-85-87 07:47:00 Test Item Value Reference Range Interpretation Comments Anisocyte (test code = 1+ *ABN*(09/01/2011 A Anisocyte) 02:47:00) [facility] StationCznenloFRMFDPETNF1176-47-43 07:47:00 Test Item Value Reference Range Interpretation Comments Large Plt (test code = Slight *ABN*(09/01/2011 A Large Plt) 02:47:00) [facility] StationUkwhgacGASPJURDRL4221-88-69 07:47:00 Test Item Value Reference Range Interpretation Comments Tear Cell (test code = Tear Cell) Occasional [facility] StationLyfjyktCDOKOLKPTZ8631-14-49 07:47:00 Test Item Value Reference Range Interpretation Comments Elliptocyte (test code = Slight A Elliptocyte) *ABN*(09/01/2011 02:47:00) [facility] HospitalLsuararWIFQQTZGN6914-20-95 07:47:00 Test Item Value Reference Range Interpretation Comments Magnesium Lvl (test code = Magnesium 1.5 1.8-2.4 L Lvl) [facility] StationVguzkwkANYJLJAPEJ1314-66-89 07:47:00 Test Item Value Reference Range Interpretation Comments Polychrom (test code = Slight (09/01/2011 N Polychrom) 02:47:00) [facility] StationOldjfaxDRHNOTBJHS0287-20-66 07:47:00 Test Item Value Reference Range Interpretation Comments Anisocyte (test code = 1+ *ABN*(09/01/2011 A Anisocyte) 02:47:00) [facility] StationXzuonytLWYVOSEHDI0137-41-11 07:47:00 Test Item Value Reference Range Interpretation Comments Large Plt (test code = Slight *ABN*(09/01/2011 A Large Plt) 02:47:00) [facility] StationLjooylfDJPXQVQZEM2075-49-22 07:47:00 Test Item Value Reference Range Interpretation Comments Tear Cell (test code = Tear Cell) Occasional [facility] StationEgunrtiIDLVCKXWYE1226-90-27 07:47:00 Test Item Value Reference Range Interpretation Comments Elliptocyte (test code = Slight A Elliptocyte) *ABN*(09/01/2011 02:47:00) [facility] GLUCOSE [id number] 17:02:00 Test Item Value Reference Range Interpretation Comments Comment1 (test code = Comment1) Notify TABATHA/ [facility] GLUCOSE [id number] 17:02:00 Test Item Value Reference Range Interpretation Comments Gluc POC Lifscn (test code = Gluc POC 134 65-110 H Lifscn) [facility] GLUCOSE [id number] 17:02:00 Test Item Value Reference Range Interpretation Comments Comment1 (test code = Comment1) Notifcaron MAYS/ [facility] GLUCOSE [id number] 17:02:00 Test Item Value Reference Range Interpretation Comments Gluc POC Lifscn (test code = Gluc POC 134 65-110 H Lifscn) [facility] GLUCOSE DEYUIHK4683-29-35 17:02:00 Test Item Value Reference Range Interpretation Comments Comment1 (test code = Comment1) Notify RN/ [facility] GLUCOSE [id number] 17:02:00 Test Item Value Reference Range Interpretation Comments Gluc POC Lifscn (test code = Gluc POC 134 65-110 H Lifscn) [facility] GLUCOSE [id number] 17:02:00 Test Item Value Reference Range Interpretation Comments Comment1 (test code = Comment1) Notify RN/ [facility] GLUCOSE [id number] 17:02:00 Test Item Value Reference Range Interpretation Comments Gluc POC Lifscn (test code = Gluc POC 134 65-110 H Lifscn) [facility] GLUCOSE [id number] 17:02:00 Test Item Value Reference Range Interpretation Comments Comment1 (test code = Comment1) Notify RN/ [facility] GLUCOSE [id number] 17:02:00 Test Item Value Reference Range Interpretation Comments Gluc POC Lifscn (test code = Gluc POC 134 65-110 H Lifscn) [facility] GLUCOSE [id number] 13:45:00 Test Item Value Reference Range Interpretation Comments Gluc POC Lifscn (test code = Gluc POC 182 65-110 H Lifscn) [facility] GLUCOSE [id number] 13:45:00 Test Item Value Reference Range Interpretation Comments Comment1 (test code = Comment1) Notify RN/ [facility] GLUCOSE [id number] 13:45:00 Test Item Value Reference Range Interpretation Comments Gluc POC Lifscn (test code = Gluc POC 182 65-110 H Lifscn) [facility] GLUCOSE [id number] 13:45:00 Test Item Value Reference Range Interpretation Comments Comment1 (test code = Comment1) Notify RN/ [facility] GLUCOSE [id number] 13:45:00 Test Item Value Reference Range Interpretation Comments Gluc POC Lifscn (test code = Gluc POC 182 65-110 H Lifscn) [facility] GLUCOSE [id number] 13:45:00 Test Item Value Reference Range Interpretation Comments Comment1 (test code = Comment1) Notify RN/ [facility] GLUCOSE [id number] 13:45:00 Test Item Value Reference Range Interpretation Comments Gluc POC Lifscn (test code = Gluc POC 182 65-110 H Lifscn) [facility] GLUCOSE [id number] 13:45:00 Test Item Value Reference Range Interpretation Comments Comment1 (test code = Comment1) Notify RN/ [facility] GLUCOSE [id number] 13:45:00 Test Item Value Reference Range Interpretation Comments Gluc POC Lifscn (test code = Gluc POC 182 65-110 H Lifscn) [facility] GLUCOSE [id number] 13:45:00 Test Item Value Reference Range Interpretation Comments Comment1 (test code = Comment1) Notify TABATHA/ [facility] HospitalBxwgcnnSROZSHQJD7017-84-05 10:22:00 Test Item Value Reference Range Interpretation Comments Phosphorus (test code = Phosphorus) 3.0 2.5-4.5 N [facility] HospitalTwuxhdoVZSBWESVW5471-27-38 10:22:00 Test Item Value Reference Range Interpretation Comments Magnesium Lvl (test code = Magnesium 1.8 1.8-2.4 N Lvl) [facility] HospitalCccaebmWVMXWOUTE2886-58-33 10:22:00 Test Item Value Reference Range Interpretation Comments Chloride Lvl (test code = Chloride Lvl) 107 95-109 N [facility] HospitalNimsopqBJRYDEUEX1791-96-45 10:22:00 Test Item Value Reference Range Interpretation Comments Potassium Lvl (test code = Potassium 3.0 3.5-5.1 A Lvl) [facility] HospitalHhtrvumGHLQGIPVH1656-01-05 10:22:00 Test Item Value Reference Range Interpretation Comments Sodium Lvl (test code = Sodium Lvl) 141 135-145 N [facility] HospitalCupeeaaWJSNBESOB0479-22-30 10:22:00 Test Item Value Reference Range Interpretation Comments Creatinine Lvl (test code = Creatinine 0.6 0.5-1.4 N Lvl) [facility]YuadgcwXFHDBPMLD2759-86-99 10:22:00 Test Item Value Reference Range Interpretation Comments CO2 (test code = CO2) 23 24-32 L [facility] HospitalTjvaypnDFMTFMZLI1813-83-22 10:22:00 Test Item Value Reference Range Interpretation Comments Calcium Lvl (test code = Calcium Lvl) 7.3 8.5-10.5 L [facility] HospitalDrdpjzcQODFUGTHZ1814-50-28 10:22:00 Test Item Value Reference Range Interpretation Comments Glucose Lvl (test code = Glucose Lvl) 136 [facility] HospitalGgokstrZNZEFUYCG5004-93-22 10:22:00 Test Item Value Reference Range Interpretation Comments AGAP (test code = AGAP) 14.0 10.0-20.0 N [facility] HospitalUjtwwavNLPDWRXJC1461-00-95 10:22:00 Test Item Value Reference Range Interpretation Comments BUN (test code = BUN) 5 7-22 L [facility] StationQdnxunhUIUDEJOERT5473-31-58 10:22:00 Test Item Value Reference Range Interpretation Comments Segs (test code = Segs) 69.6 45.0-75.0 N [facility] StationLgqdwseEEGPAJSSAN5586-27-89 10:22:00 Test Item Value Reference Range Interpretation Comments Lymphocytes (test code = Lymphocytes) 21.5 20.0-40.0 N [facility] StationTxoyyifLCCMBZNPUZ4479-41-38 10:22:00 Test Item Value Reference Range Interpretation Comments Monocytes (test code = Monocytes) 7.6 2.0-12.0 N [facility] StationTdmeizdKCNUSXFYAC6816-83-96 10:22:00 Test Item Value Reference Range Interpretation Comments Eosinophils (test code = 1.0 See_Comment N [A utomated message] The Eosinophils) system which ge nerated this result tra nsmitted reference range : <=4.0. The reference r leo was not used to int erpret this result as normal/abnormal . [facility] StationPtovezlYDITRHFMQN3852-11-13 10:22:00 Test Item Value Reference Range Interpretation Comments Basophils (test code = 0.3 See_Comment N [Aut omated message] The Basophils) system which ge nerated this result tra nsmitted reference range : <=1.0. The reference r leo was not used to int erpret this result as normal/abnormal . [facility] StationEbhbwxcHJPOROZSKA9103-31-14 10:22:00 Test Item Value Reference Range Interpretation Comments Segs-Bands # (test code = Segs-Bands #) 4.8 1.5-8.1 N [facility] StationNvgceevEASLBMGCJV8837-22-78 10:22:00 Test Item Value Reference Range Interpretation Comments Eosinophils # (test code 0.1 See_Comment N [A utomated message] The = Eosinophils #) system [facility] h generated this result tra nsmitted reference range : <=0.5. The reference r leo was not used to int erpret this result as normal/abnormal . [facility] StationYmnrlbtZZPXEEXCWY5880-59-33 10:22:00 Test Item Value Reference Range Interpretation Comments Lymphocytes # (test code = Lymphocytes 1.5 1.0-5.5 N #) [facility] StationGxhvgntLOEUELPGZW7536-47-80 10:22:00 Test Item Value Reference Range Interpretation Comments Monocytes # (test code 0.5 See_Comment N [Aut omated message] The = Monocytes #) system which generated this result tra nsmitted reference range : <=0.8. The reference r leo was not used to int erpret this result as normal/abnormal . [facility] StationLfxftomTFELBGGYCS7937-33-06 10:22:00 Test Item Value Reference Range Interpretation Comments Basophils # (test code 0.0 See_Comment N [Aut omated message] The = Basophils #) system which generated this result tra nsmitted reference range : <=0.2. The reference r leo was not used to int erpret this result as normal/abnormal . [facility] StationBwoggkuYOKVCNEHHZ9369-53-00 10:22:00 Test Item Value Reference Range Interpretation Comments MPV (test code = MPV) 11.0 7.4-10.4 H [facility] StationFaiosmuNGGEOFPUXN8793-05-66 10:22:00 Test Item Value Reference Range Interpretation Comments Platelet (test code = Platelet) 161 133-450 N [facility] StationOuvaefzMNSMRANHEE5352-83-73 10:22:00 Test Item Value Reference Range Interpretation Comments MCH (test code = MCH) 29.6 pg 27.0-31.0 N [facility] StationBdopycdJPOKJWAQVD7441-77-31 10:22:00 Test Item Value Reference Range Interpretation Comments MCHC (test code = MCHC) 35.4 32.0-36.0 N [facility] StationHfjuvnzCCSITHDWRQ0479-24-20 10:22:00 Test Item Value Reference Range Interpretation Comments RDW (test code = RDW) 14.1 11.5-14.5 N [facility] StationVfefsewMAFBXUXJPY9462-78-37 10:22:00 Test Item Value Reference Range Interpretation Comments WBC (test code = WBC) 6.8 3.7-10.4 N [facility] StationBnpghwtFEFUJLETCA0847-07-65 10:22:00 Test Item Value Reference Range Interpretation Comments MCV (test code = MCV) 83.5 81.0-99.0 N [facility] StationEkgfvzyTEYUJISDUT6638-03-91 10:22:00 Test Item Value Reference Range Interpretation Comments RBC (test code = RBC) 4.44 4.20-5.40 N [facility] StationOdsrmjwYQYOCEFLLF3756-57-67 10:22:00 Test Item Value Reference Range Interpretation Comments Hgb (test code = Hgb) 13.1 12.0-16.0 N [facility] StationLmwqhbhYJPGPHJGLI5986-80-09 10:22:00 Test Item Value Reference Range Interpretation Comments Hct (test code = Hct) 37.1 36.0-48.0 N [facility] HospitalUgflmqkLTEKEDZOP4012-89-86 10:22:00 Test Item Value Reference Range Interpretation Comments Phosphorus (test code = Phosphorus) 3.0 2.5-4.5 N [facility] HospitalNaoevscMABKHVBPB9224-26-11 10:22:00 Test Item Value Reference Range Interpretation Comments Magnesium Lvl (test code = Magnesium 1.8 1.8-2.4 N Lvl) [facility] HospitalXtjscfaQHHQLOKGJ1916-41-98 10:22:00 Test Item Value Reference Range Interpretation Comments Chloride Lvl (test code = Chloride Lvl) 107 95-109 N [facility] HospitalTvdeksaIAAPJEZGG4354-32-96 10:22:00 Test Item Value Reference Range Interpretation Comments Potassium Lvl (test code = Potassium 3.0 3.5-5.1 A Lvl) [facility] HospitalVsjihyhGJHQZACPJ7614-44-97 10:22:00 Test Item Value Reference Range Interpretation Comments Sodium Lvl (test code = Sodium Lvl) 141 135-145 N [facility] HospitalBnpkhneSDYNWMLPP8815-67-41 10:22:00 Test Item Value Reference Range Interpretation Comments Creatinine Lvl (test code = Creatinine 0.6 0.5-1.4 N Lvl) [facility] HospitalXwwhdzgEDBTAOVRH8106-49-84 10:22:00 Test Item Value Reference Range Interpretation Comments CO2 (test code = CO2) 23 24-32 L [facility] HospitalTfqxezhIANUSNQIM3721-61-44 10:22:00 Test Item Value Reference Range Interpretation Comments Calcium Lvl (test code = Calcium Lvl) 7.3 8.5-10.5 L [facility] HospitalZclcpwoNVMPLEJCQ8470-24-80 10:22:00 Test Item Value Reference Range Interpretation Comments Glucose Lvl (test code = Glucose Lvl) 136 [facility] HospitalIrvsefxUGRQDJKVZ6890-06-16 10:22:00 Test Item Value Reference Range Interpretation Comments AGAP (test code = AGAP) 14.0 10.0-20.0 N [facility] HospitalRsygzheZNJWQOIWY6818-30-22 10:22:00 Test Item Value Reference Range Interpretation Comments BUN (test code = BUN) 5 7-22 L [facility] StationCgxtyfrUDSHFGURAG6547-73-66 10:22:00 Test Item Value Reference Range Interpretation Comments Segs (test code = Segs) 69.6 45.0-75.0 N [facility] StationKzvnwsdVBMWIGHUEE2781-02-26 10:22:00 Test Item Value Reference Range Interpretation Comments Lymphocytes (test code = Lymphocytes) 21.5 20.0-40.0 N [facility] StationTnhxrgeSYHWXIECVE2804-62-45 10:22:00 Test Item Value Reference Range Interpretation Comments Monocytes (test code = Monocytes) 7.6 2.0-12.0 N [facility] StationPbuyinvGPKQYFZQOE3590-96-78 10:22:00 Test Item Value Reference Range Interpretation Comments Eosinophils (test code = 1.0 See_Comment N [A utomated message] The Eosinophils) system which ge nerated this result tra nsmitted reference range : <=4.0. The reference r leo was not used to int erpret this result as normal/abnormal . [facility] StationHbjnhpxBTXSHDMDOJ7300-48-86 10:22:00 Test Item Value Reference Range Interpretation Comments Basophils (test code = 0.3 See_Comment N [Aut omated message] The Basophils) system which ge nerated this result tra nsmitted reference range : <=1.0. The reference r leo was not used to int erpret this result as normal/abnormal . [facility] StationMslzznlXPLAHJVUYU5684-91-22 10:22:00 Test Item Value Reference Range Interpretation Comments Segs-Bands # (test code = Segs-Bands #) 4.8 1.5-8.1 N [facility] StationVwhqazvFNPVKMGVTN2264-50-34 10:22:00 Test Item Value Reference Range Interpretation Comments Eosinophils # (test code 0.1 See_Comment N [A utomated message] The = Eosinophils #) system whic h generated this result tra nsmitted reference range : <=0.5. The reference r leo was not used to int erpret this result as normal/abnormal . [facility] StationMuieahtDNQPFVSYLG1989-61-17 10:22:00 Test Item Value Reference Range Interpretation Comments Lymphocytes # (test code = Lymphocytes 1.5 1.0-5.5 N #) [facility] StationMhgnzhrRFZNFRLGGV1987-67-61 10:22:00 Test Item Value Reference Range Interpretation Comments Monocytes # (test code 0.5 See_Comment N [Aut omated message] The = Monocytes #) system which generated this result tra nsmitted reference range : <=0.8. The reference r leo was not used to int erpret this result as normal/abnormal . [facility] StationMziynaqUEYMQRHGZB9054-86-36 10:22:00 Test Item Value Reference Range Interpretation Comments Basophils # (test code 0.0 See_Comment N [Aut omated message] The = Basophils #) system which generated this result tra nsmitted reference range : <=0.2. The reference r leo was not used to int erpret this result as normal/abnormal . [facility] StationMlatjxcOGIFKJJYTN1832-31-25 10:22:00 Test Item Value Reference Range Interpretation Comments MPV (test code = MPV) 11.0 7.4-10.4 H [facility] StationOcccoroLWZRPPIPJG9598-47-56 10:22:00 Test Item Value Reference Range Interpretation Comments Platelet (test code = Platelet) 161 133-450 N [facility] StationJvmfuzmTZWKCWVRKB3122-07-83 10:22:00 Test Item Value Reference Range Interpretation Comments MCH (test code = MCH) 29.6 pg 27.0-31.0 N [facility] StationKbzzgvjGGAJSSGSCM6791-01-20 10:22:00 Test Item Value Reference Range Interpretation Comments MCHC (test code = MCHC) 35.4 32.0-36.0 N [facility] StationIueibziZOWPFAFION7215-09-98 10:22:00 Test Item Value Reference Range Interpretation Comments RDW (test code = RDW) 14.1 11.5-14.5 N [facility] StationZtczubdCGLUNBZJKI8440-45-45 10:22:00 Test Item Value Reference Range Interpretation Comments WBC (test code = WBC) 6.8 3.7-10.4 N [facility] StationKwsomjbFBECMOGMAI3805-64-72 10:22:00 Test Item Value Reference Range Interpretation Comments MCV (test code = MCV) 83.5 81.0-99.0 N [facility] StationBfwelzyFRZPCLAYAX6843-53-09 10:22:00 Test Item Value Reference Range Interpretation Comments RBC (test code = RBC) 4.44 4.20-5.40 N [facility] StationNyxtsgjAFBGATDLDV7278-37-13 10:22:00 Test Item Value Reference Range Interpretation Comments Hgb (test code = Hgb) 13.1 12.0-16.0 N [facility] StationEsjihxhNSAVRXJAVR8626-68-39 10:22:00 Test Item Value Reference Range Interpretation Comments Hct (test code = Hct) 37.1 36.0-48.0 N [facility] HospitalQaozywcABEJUXXLS9777-20-16 10:22:00 Test Item Value Reference Range Interpretation Comments Phosphorus (test code = Phosphorus) 3.0 2.5-4.5 N [facility] HospitalDtsvhuyPDZJYAZNO4625-54-97 10:22:00 Test Item Value Reference Range Interpretation Comments Magnesium Lvl (test code = Magnesium 1.8 1.8-2.4 N Lvl) [facility] HospitalRhgvzwuFGHWXRESE9354-77-35 10:22:00 Test Item Value Reference Range Interpretation Comments Chloride Lvl (test code = Chloride Lvl) 107 95-109 N [facility] HospitalIqpmefjDFJSQWOQR9413-48-78 10:22:00 Test Item Value Reference Range Interpretation Comments Potassium Lvl (test code = Potassium 3.0 3.5-5.1 A Lvl) [facility] HospitalRwemudnZQJIFPPZC4633-21-84 10:22:00 Test Item Value Reference Range Interpretation Comments Sodium Lvl (test code = Sodium Lvl) 141 135-145 N [facility] HospitalUbrofhbVRMNPJNAR4680-37-05 10:22:00 Test Item Value Reference Range Interpretation Comments Creatinine Lvl (test code = Creatinine 0.6 0.5-1.4 N Lvl) [facility] HospitalLzggbgnSCMFTWXHK0066-38-47 10:22:00 Test Item Value Reference Range Interpretation Comments CO2 (test code = CO2) 23 24-32 L [facility] HospitalTyfyemcDJVEHFAJX4654-28-52 10:22:00 Test Item Value Reference Range Interpretation Comments Calcium Lvl (test code = Calcium Lvl) 7.3 8.5-10.5 L [facility] HospitalOvxbhxdZUWCPXEXB6406-97-83 10:22:00 Test Item Value Reference Range Interpretation Comments Glucose Lvl (test code = Glucose Lvl) 136 [facility] HospitalEgmqdqpTLUKGFRXN6921-70-41 10:22:00 Test Item Value Reference Range Interpretation Comments AGAP (test code = AGAP) 14.0 10.0-20.0 N [facility] HospitalYclaciuIBXFNLGSG9669-35-35 10:22:00 Test Item Value Reference Range Interpretation Comments BUN (test code = BUN) 5 7-22 L [facility] StationSzjsjxkLVCEXLEGSQ5858-70-86 10:22:00 Test Item Value Reference Range Interpretation Comments Segs (test code = Segs) 69.6 45.0-75.0 N [facility] StationHwqlrygAQALHVMEDF1590-10-05 10:22:00 Test Item Value Reference Range Interpretation Comments Lymphocytes (test code = Lymphocytes) 21.5 20.0-40.0 N [facility] StationEnbdxoaWQPHNSRGUE5862-57-40 10:22:00 Test Item Value Reference Range Interpretation Comments Monocytes (test code = Monocytes) 7.6 2.0-12.0 N [facility] StationHvlfvasMOCUDABICQ4841-87-27 10:22:00 Test Item Value Reference Range Interpretation Comments Eosinophils (test code = 1.0 See_Comment N [A utomated message] The Eosinophils) system which ge nerated this result tra nsmitted reference range : <=4.0. The reference r leo was not used to int erpret this result as normal/abnormal . [facility] StationTwchvvfDHKSTBOVWC8393-01-19 10:22:00 Test Item Value Reference Range Interpretation Comments Basophils (test code = 0.3 See_Comment N [Aut omated message] The Basophils) system which ge nerated this result tra nsmitted reference range : <=1.0. The reference r leo was not used to int erpret this result as normal/abnormal . [facility] StationKgukckeCGCPWFHJCS1137-10-33 10:22:00 Test Item Value Reference Range Interpretation Comments Segs-Bands # (test code = Segs-Bands #) 4.8 1.5-8.1 N [facility] StationMehjgrqXDTCWCACNX1755-79-61 10:22:00 Test Item Value Reference Range Interpretation Comments Eosinophils # (test code 0.1 See_Comment N [A utomated message] The = Eosinophils #) system [facility] h generated this result tra nsmitted reference range : <=0.5. The reference r leo was not used to int erpret this result as normal/abnormal . [facility] StationWwnvglbHDIYYTJIGU1859-75-14 10:22:00 Test Item Value Reference Range Interpretation Comments Lymphocytes # (test code = Lymphocytes 1.5 1.0-5.5 N #) [facility] StationXmzhqsuOWLUQTRYHV3712-25-61 10:22:00 Test Item Value Reference Range Interpretation Comments Monocytes # (test code 0.5 See_Comment N [Aut omated message] The = Monocytes #) system which generated this result tra nsmitted reference range : <=0.8. The reference r leo was not used to int erpret this result as normal/abnormal . [facility] StationDztoxyrMRBYEYUIPS9839-29-63 10:22:00 Test Item Value Reference Range Interpretation Comments Basophils # (test code 0.0 See_Comment N [Aut omated message] The = Basophils #) system which generated this result tra nsmitted reference range : <=0.2. The reference r leo was not used to int erpret this result as normal/abnormal . [facility] StationHmpbyvrWEJIKCFSPU9887-60-62 10:22:00 Test Item Value Reference Range Interpretation Comments MPV (test code = MPV) 11.0 7.4-10.4 H [facility] StationRkbprfmANMEAWHTZB5283-84-40 10:22:00 Test Item Value Reference Range Interpretation Comments Platelet (test code = Platelet) 161 133-450 N [facility] StationXmhoegyOVVIHHMZNN9123-76-09 10:22:00 Test Item Value Reference Range Interpretation Comments MCH (test code = MCH) 29.6 pg 27.0-31.0 N [facility] StationHewrgmrUIINMMTNSO8653-36-78 10:22:00 Test Item Value Reference Range Interpretation Comments MCHC (test code = MCHC) 35.4 32.0-36.0 N [facility] StationOqhtucfORVMFMGMDP3684-83-05 10:22:00 Test Item Value Reference Range Interpretation Comments RDW (test code = RDW) 14.1 11.5-14.5 N [facility] StationVpthwivMGBTSLKVUQ1089-04-69 10:22:00 Test Item Value Reference Range Interpretation Comments WBC (test code = WBC) 6.8 3.7-10.4 N [facility] StationCjnuowuPCHROBILVJ3508-77-35 10:22:00 Test Item Value Reference Range Interpretation Comments MCV (test code = MCV) 83.5 81.0-99.0 N [facility] StationVzzdtcvMGMBVOJVBC5305-23-02 10:22:00 Test Item Value Reference Range Interpretation Comments RBC (test code = RBC) 4.44 4.20-5.40 N [facility] StationKelmlfmQPHPGARHSC2307-84-97 10:22:00 Test Item Value Reference Range Interpretation Comments Hgb (test code = Hgb) 13.1 12.0-16.0 N [facility] StationQwjiwzmZOQWIFQUWH6517-53-82 10:22:00 Test Item Value Reference Range Interpretation Comments Hct (test code = Hct) 37.1 36.0-48.0 N [facility]TpulojgJCQXBIESD7740-20-86 10:22:00 Test Item Value Reference Range Interpretation Comments Phosphorus (test code = Phosphorus) 3.0 2.5-4.5 N [facility] HospitalOdyfuovQCZWNABLO5235-76-61 10:22:00 Test Item Value Reference Range Interpretation Comments Magnesium Lvl (test code = Magnesium 1.8 1.8-2.4 N Lvl) [facility] HospitalJxhucsdOIXZRVCCY6379-56-02 10:22:00 Test Item Value Reference Range Interpretation Comments Chloride Lvl (test code = Chloride Lvl) 107 95-109 N [facility] HospitalMkucpmuUWUUQLPSD1421-26-21 10:22:00 Test Item Value Reference Range Interpretation Comments Potassium Lvl (test code = Potassium 3.0 3.5-5.1 A Lvl) [facility] HospitalXblykrxUEFAZZSJW8796-07-09 10:22:00 Test Item Value Reference Range Interpretation Comments Sodium Lvl (test code = Sodium Lvl) 141 135-145 N [facility] HospitalKtntrdmGLLXCGILN1998-86-02 10:22:00 Test Item Value Reference Range Interpretation Comments Creatinine Lvl (test code = Creatinine 0.6 0.5-1.4 N Lvl) [facility] HospitalBpwxoysYVNRDRTON6137-33-56 10:22:00 Test Item Value Reference Range Interpretation Comments CO2 (test code = CO2) 23 24-32 L [facility] HospitalLwokpdmIKEXLBFFB6283-89-00 10:22:00 Test Item Value Reference Range Interpretation Comments Calcium Lvl (test code = Calcium Lvl) 7.3 8.5-10.5 L [facility] HospitalAjswcmqIFJXEQUHB0464-22-42 10:22:00 Test Item Value Reference Range Interpretation Comments Glucose Lvl (test code = Glucose Lvl) 136 [facility] HospitalChspdvuDDOCHBKVY0971-57-72 10:22:00 Test Item Value Reference Range Interpretation Comments AGAP (test code = AGAP) 14.0 10.0-20.0 N [facility] HospitalNhkuphfFJNSOOYUR0217-50-68 10:22:00 Test Item Value Reference Range Interpretation Comments BUN (test code = BUN) 5 7-22 L [facility] StationKfbxutkTXROHVTRYA4985-53-68 10:22:00 Test Item Value Reference Range Interpretation Comments Segs (test code = Segs) 69.6 45.0-75.0 N [facility] StationBhmiikiFZJFKUQWLJ2772-75-00 10:22:00 Test Item Value Reference Range Interpretation Comments Lymphocytes (test code = Lymphocytes) 21.5 20.0-40.0 N [facility] StationAvdjvpiIOTKLYNHZZ8982-35-75 10:22:00 Test Item Value Reference Range Interpretation Comments Monocytes (test code = Monocytes) 7.6 2.0-12.0 N [facility] StationTqnzphgCXAYKHALNR5242-26-77 10:22:00 Test Item Value Reference Range Interpretation Comments Eosinophils (test code = 1.0 See_Comment N [A utomated message] The Eosinophils) system which ge nerated this result tra nsmitted reference range : <=4.0. The reference r leo was not used to int erpret this result as normal/abnormal . [facility] StationYullzgwVCIWETRQGF1506-80-24 10:22:00 Test Item Value Reference Range Interpretation Comments Basophils (test code = 0.3 See_Comment N [Aut omated message] The Basophils) system which ge nerated this result tra nsmitted reference range : <=1.0. The reference r leo was not used to int erpret this result as normal/abnormal . [facility] StationQvtauaxCXUXSCACJZ0357-12-92 10:22:00 Test Item Value Reference Range Interpretation Comments Segs-Bands # (test code = Segs-Bands #) 4.8 1.5-8.1 N [facility] StationVrgbvqmUUCTGHYGMI8303-93-11 10:22:00 Test Item Value Reference Range Interpretation Comments Eosinophils # (test code 0.1 See_Comment N [A utomated message] The = Eosinophils #) system whic h generated this result tra nsmitted reference range : <=0.5. The reference r leo was not used to int erpret this result as normal/abnormal . [facility] StationPxbziknUNLPCJAZZG2011-30-66 10:22:00 Test Item Value Reference Range Interpretation Comments Lymphocytes # (test code = Lymphocytes 1.5 1.0-5.5 N #) [facility] StationYhlcptvHDMVXULTBZ6145-56-19 10:22:00 Test Item Value Reference Range Interpretation Comments Monocytes # (test code 0.5 See_Comment N [Aut omated message] The = Monocytes #) system which generated this result tra nsmitted reference range : <=0.8. The reference r leo was not used to int erpret this result as normal/abnormal . [facility] StationAishcutRDPGXRIUIN6959-22-49 10:22:00 Test Item Value Reference Range Interpretation Comments Basophils # (test code 0.0 See_Comment N [Aut omated message] The = Basophils #) system which generated this result tra nsmitted reference range : <=0.2. The reference r leo was not used to int erpret this result as normal/abnormal . [facility] StationCdzwygtCLKXMSSPDZ9883-09-38 10:22:00 Test Item Value Reference Range Interpretation Comments MPV (test code = MPV) 11.0 7.4-10.4 H [facility] StationFhpdyjbCFXNKLCHDY2611-31-12 10:22:00 Test Item Value Reference Range Interpretation Comments Platelet (test code = Platelet) 161 133-450 N [facility] StationZugamcaAYJKHUBIVN4440-12-61 10:22:00 Test Item Value Reference Range Interpretation Comments MCH (test code = MCH) 29.6 pg 27.0-31.0 N [facility] StationQtkviurFLCBMLJWBS0844-63-82 10:22:00 Test Item Value Reference Range Interpretation Comments MCHC (test code = MCHC) 35.4 32.0-36.0 N [facility] StationOmfyqzxVCWSPHGTOM3912-69-38 10:22:00 Test Item Value Reference Range Interpretation Comments RDW (test code = RDW) 14.1 11.5-14.5 N [facility] StationSicfughUXPYRBFXIC1388-96-68 10:22:00 Test Item Value Reference Range Interpretation Comments WBC (test code = WBC) 6.8 3.7-10.4 N [facility] StationWbgpfogERPBDIUZIF6532-68-00 10:22:00 Test Item Value Reference Range Interpretation Comments MCV (test code = MCV) 83.5 81.0-99.0 N [facility] StationJgxujgcOLCGPKAFRC4081-32-42 10:22:00 Test Item Value Reference Range Interpretation Comments RBC (test code = RBC) 4.44 4.20-5.40 N [facility] StationRlbxyimVBXBOPRWRX6111-92-99 10:22:00 Test Item Value Reference Range Interpretation Comments Hgb (test code = Hgb) 13.1 12.0-16.0 N [facility] StationOmgtzxhAJAMXKWRGO2555-32-51 10:22:00 Test Item Value Reference Range Interpretation Comments Hct (test code = Hct) 37.1 36.0-48.0 N [facility] HospitalDvhyevkENNPXBVEH9046-81-59 10:22:00 Test Item Value Reference Range Interpretation Comments Phosphorus (test code = Phosphorus) 3.0 2.5-4.5 N [facility] HospitalItwpgfwEGDYYQJAG6971-00-73 10:22:00 Test Item Value Reference Range Interpretation Comments Magnesium Lvl (test code = Magnesium 1.8 1.8-2.4 N Lvl) [facility] HospitalSdxrrghIFMUFXMXR6751-60-42 10:22:00 Test Item Value Reference Range Interpretation Comments Chloride Lvl (test code = Chloride Lvl) 107 95-109 N [facility] HospitalHwxwxjjSINPBMIOC6145-39-38 10:22:00 Test Item Value Reference Range Interpretation Comments Potassium Lvl (test code = Potassium 3.0 3.5-5.1 A Lvl) [facility] HospitalSodimozIKCQPYUDU4207-07-93 10:22:00 Test Item Value Reference Range Interpretation Comments Sodium Lvl (test code = Sodium Lvl) 141 135-145 N [facility] HospitalNxundycSXLORSGTN1595-76-34 10:22:00 Test Item Value Reference Range Interpretation Comments Creatinine Lvl (test code = Creatinine 0.6 0.5-1.4 N Lvl) [facility] HospitalKfqbmzmZHPATTWMP7715-04-69 10:22:00 Test Item Value Reference Range Interpretation Comments CO2 (test code = CO2) 23 24-32 L [facility] HospitalGmxllhvFEZWTQCPG3400-98-24 10:22:00 Test Item Value Reference Range Interpretation Comments Calcium Lvl (test code = Calcium Lvl) 7.3 8.5-10.5 L [facility] HospitalHtapbejXXFCOCYLI3650-24-28 10:22:00 Test Item Value Reference Range Interpretation Comments Glucose Lvl (test code = Glucose Lvl) 136 [facility] HospitalUusuiqmONRTBPHSW0853-59-98 10:22:00 Test Item Value Reference Range Interpretation Comments AGAP (test code = AGAP) 14.0 10.0-20.0 N [facility] HospitalIjxlpgmXAUJLRKFS4764-55-22 10:22:00 Test Item Value Reference Range Interpretation Comments BUN (test code = BUN) 5 7-22 L [facility] StationVwlssmcEUABIDNATT4777-17-43 10:22:00 Test Item Value Reference Range Interpretation Comments Segs (test code = Segs) 69.6 45.0-75.0 N [facility] StationDvustxqGRUGSCITMV4973-03-38 10:22:00 Test Item Value Reference Range Interpretation Comments Lymphocytes (test code = Lymphocytes) 21.5 20.0-40.0 N [facility] StationCwbovkcVJBNXNSDJR7117-56-70 10:22:00 Test Item Value Reference Range Interpretation Comments Monocytes (test code = Monocytes) 7.6 2.0-12.0 N [facility] StationYvdipuvBCHNOSQSBB5564-35-61 10:22:00 Test Item Value Reference Range Interpretation Comments Eosinophils (test code = 1.0 See_Comment N [A utomated message] The Eosinophils) system which ge nerated this result tra nsmitted reference range : <=4.0. The reference r leo was not used to int erpret this result as normal/abnormal . [facility] StationWwgjjwnZECIQTJRHS6153-41-93 10:22:00 Test Item Value Reference Range Interpretation Comments Basophils (test code = 0.3 See_Comment N [Aut omated message] The Basophils) system which ge nerated this result tra nsmitted reference range : <=1.0. The reference r leo was not used to int erpret this result as normal/abnormal . [facility] StationAnkfrlyLDEAHUUDHD9283-43-89 10:22:00 Test Item Value Reference Range Interpretation Comments Segs-Bands # (test code = Segs-Bands #) 4.8 1.5-8.1 N [facility] StationMrcofghDZLOVBVUJW1829-90-89 10:22:00 Test Item Value Reference Range Interpretation Comments Eosinophils # (test code 0.1 See_Comment N [A utomated message] The = Eosinophils #) system [facility] generated this result tra nsmitted reference range : <=0.5. The reference r leo was not used to int erpret this result as normal/abnormal . [facility] StationGedtsgjINXGGGLYXI2656-21-09 10:22:00 Test Item Value Reference Range Interpretation Comments Lymphocytes # (test code = Lymphocytes 1.5 1.0-5.5 N #) [facility] StationWejpoyqFHNAMBEDDB1136-61-48 10:22:00 Test Item Value Reference Range Interpretation Comments Monocytes # (test code 0.5 See_Comment N [Aut omated message] The = Monocytes #) system which generated this result tra nsmitted reference range : <=0.8. The reference r leo was not used to int erpret this result as normal/abnormal . [facility] StationCbnstrqAWEJEVIIQV8282-99-15 10:22:00 Test Item Value Reference Range Interpretation Comments Basophils # (test code 0.0 See_Comment N [Aut omated message] The = Basophils #) system which generated this result tra nsmitted reference range : <=0.2. The reference r leo was not used to int erpret this result as normal/abnormal . [facility] StationXsbvtvzZVJXHLJGDR4039-94-09 10:22:00 Test Item Value Reference Range Interpretation Comments MPV (test code = MPV) 11.0 7.4-10.4 H [facility] StationYnupbbzVRFWECGVAQ4142-87-75 10:22:00 Test Item Value Reference Range Interpretation Comments Platelet (test code = Platelet) 161 133-450 N [facility] StationWjosjoqNSNNZPGSHQ6454-68-71 10:22:00 Test Item Value Reference Range Interpretation Comments MCH (test code = MCH) 29.6 pg 27.0-31.0 N [facility] StationBojonhoYGYMYKNHHE4124-35-50 10:22:00 Test Item Value Reference Range Interpretation Comments MCHC (test code = MCHC) 35.4 32.0-36.0 N [facility] StationTyncelaMQTVPEBGWR7221-90-50 10:22:00 Test Item Value Reference Range Interpretation Comments RDW (test code = RDW) 14.1 11.5-14.5 N [facility] StationMaxswamIRGKIYTOVP7451-88-65 10:22:00 Test Item Value Reference Range Interpretation Comments WBC (test code = WBC) 6.8 3.7-10.4 N [facility] StationAddklbdBCFEIRROEN2836-70-42 10:22:00 Test Item Value Reference Range Interpretation Comments MCV (test code = MCV) 83.5 81.0-99.0 N [facility] StationFnnnpbtUXEFLWMHWB8197-21-71 10:22:00 Test Item Value Reference Range Interpretation Comments RBC (test code = RBC) 4.44 4.20-5.40 N [facility] StationLwaftbvSHENMJWNNB8090-62-83 10:22:00 Test Item Value Reference Range Interpretation Comments Hgb (test code = Hgb) 13.1 12.0-16.0 N [facility] StationDfayrnjVBOULMBJQQ6048-23-45 10:22:00 Test Item Value Reference Range Interpretation Comments Hct (test code = Hct) 37.1 36.0-48.0 N [facility] GLUCOSE VEOBATS9595-53-81 02:20:00 Test Item Value Reference Range Interpretation Comments Comment1 (test code = Comment1) Notify RN/MD [facility] GLUCOSE NACHKMG0862-77-61 02:20:00 Test Item Value Reference Range Interpretation Comments Gluc POC Lifscn (test code = Gluc POC 332 65-110 H Lifscn) [facility] GLUCOSE ZOYYGYP2392-55-87 02:20:00 Test Item Value Reference Range Interpretation Comments Comment1 (test code = Comment1) Notify RN/ [facility] GLUCOSE UUHYGYP6143-14-55 02:20:00 Test Item Value Reference Range Interpretation Comments Gluc POC Lifscn (test code = Gluc POC 332 65-110 H Lifscn) [facility] GLUCOSE DIZJKMG8105-74-66 02:20:00 Test Item Value Reference Range Interpretation Comments Comment1 (test code = Comment1) Notify RN/ [facility] GLUCOSE FMBJPWE0626-21-64 02:20:00 Test Item Value Reference Range Interpretation Comments Gluc POC Lifscn (test code = Gluc POC 332 65-110 H Lifscn) [facility] GLUCOSE HNQOHXH4585-30-91 02:20:00 Test Item Value Reference Range Interpretation Comments Comment1 (test code = Comment1) Notify RN/ [facility] GLUCOSE CGVZYMS6738-77-60 02:20:00 Test Item Value Reference Range Interpretation Comments Gluc POC Lifscn (test code = Gluc POC 332 65-110 H Lifscn) [facility] GLUCOSE XTIEXRL4936-75-55 02:20:00 Test Item Value Reference Range Interpretation Comments Comment1 (test code = Comment1) Notify RN/ [facility] GLUCOSE TRYYEYP7373-70-86 02:20:00 Test Item Value Reference Range Interpretation Comments Gluc POC Lifscn (test code = Gluc POC 332 65-110 H Lifscn) [facility] HospitalHbxlcquOKBUTZQQW7032-93-38 09:47:00 Test Item Value Reference Range Interpretation Comments Phosphorus (test code = Phosphorus) 2.5 2.5-4.5 N [facility] HospitalCmsaoirOTJSLLBWK6356-84-59 09:47:00 Test Item Value Reference Range Interpretation Comments Glucose Lvl (test code = Glucose Lvl) 201 [facility] HospitalVqokfgtKIMNSEUJM8999-77-51 09:47:00 Test Item Value Reference Range Interpretation Comments BUN (test code = BUN) 7 7-22 N [facility] HospitalDcfylvfPJAQGDPSU8005-07-07 09:47:00 Test Item Value Reference Range Interpretation Comments CO2 (test code = CO2) 19 24-32 L [facility] HospitalYixlorkXRQOQXQQO6500-15-23 09:47:00 Test Item Value Reference Range Interpretation Comments Creatinine Lvl (test code = Creatinine 0.3 0.5-1.4 L Lvl) [facility] HospitalEydxuotGGVFCDQYB3115-05-33 09:47:00 Test Item Value Reference Range Interpretation Comments Sodium Lvl (test code = Sodium Lvl) 137 135-145 N [facility] HospitalIgyfigcCKKBJAGNO8039-34-86 09:47:00 Test Item Value Reference Range Interpretation Comments Chloride Lvl (test code = Chloride Lvl) 103 95-109 N [facility] HospitalMlsanooHRPPOJXLW0261-65-44 09:47:00 Test Item Value Reference Range Interpretation Comments Potassium Lvl (test code = Potassium 3.6 3.5-5.1 N Lvl) [facility] HospitalIfaoevmSJTCXJBXG9566-25-80 09:47:00 Test Item Value Reference Range Interpretation Comments Calcium Lvl (test code = Calcium Lvl) 7.9 8.5-10.5 L [facility] HospitalUpefzazRHLLXCULO8668-04-48 09:47:00 Test Item Value Reference Range Interpretation Comments AGAP (test code = AGAP) 18.6 10.0-20.0 N [facility] HospitalGvzughuUAGBRZGAZ0760-38-84 09:47:00 Test Item Value Reference Range Interpretation Comments Magnesium Lvl (test code = Magnesium 1.6 1.8-2.4 L Lvl) [facility] StationGrhtwtiAJUUJKYZLP6263-97-29 09:47:00 Test Item Value Reference Range Interpretation Comments Basophils # (test code 0.0 See_Comment N [Aut omated message] The = Basophils #) system which generated this result tra nsmitted reference range : <=0.2. The reference r leo was not used to int erpret this result as normal/abnormal . [facility] StationYhsukhzZWNJBBAAKD3166-01-97 09:47:00 Test Item Value Reference Range Interpretation Comments Eosinophils (test code = 0.4 See_Comment N [A utomated message] The Eosinophils) system which ge nerated this result tra nsmitted reference range : <=4.0. The reference r leo was not used to int erpret this result as normal/abnormal . [facility] StationFfrgcydXNAPLOFRNJ7148-30-87 09:47:00 Test Item Value Reference Range Interpretation Comments Basophils (test code = 0.5 See_Comment N [Aut omated message] The Basophils) system which ge nerated this result tra nsmitted reference range : <=1.0. The reference r leo was not used to int erpret this result as normal/abnormal . [facility] StationXiuqhtoOEAKXXKJXW3427-66-36 09:47:00 Test Item Value Reference Range Interpretation Comments Segs-Bands # (test code = Segs-Bands #) 5.9 1.5-8.1 N [facility] StationRqwwsdaRYMAEHNWRA2623-54-11 09:47:00 Test Item Value Reference Range Interpretation Comments Lymphocytes # (test code = Lymphocytes 1.2 1.0-5.5 N #) [facility] StationRngqsimSZORNPLTZP6231-36-02 09:47:00 Test Item Value Reference Range Interpretation Comments Monocytes # (test code 0.5 See_Comment N [Aut omated message] The = Monocytes #) system which generated this result tra nsmitted reference range : <=0.8. The reference r leo was not used to int erpret this result as normal/abnormal . [facility] StationGzvlreeFNBSEFUMOX2985-75-31 09:47:00 Test Item Value Reference Range Interpretation Comments Eosinophils # (test code 0.0 See_Comment N [A utomated message] The = Eosinophils #) system whic h generated this result tra nsmitted reference range : <=0.5. The reference r leo was not used to int erpret this result as normal/abnormal . [facility] StationMiybzqqPXCJVADTUH7173-20-80 09:47:00 Test Item Value Reference Range Interpretation Comments Segs (test code = Segs) 76.9 45.0-75.0 H [facility] StationGtezwdpQXHBDRBVGF6669-81-58 09:47:00 Test Item Value Reference Range Interpretation Comments Lymphocytes (test code = Lymphocytes) 15.9 20.0-40.0 L [facility] StationBhaqfrdSCDTWULPAW8343-74-51 09:47:00 Test Item Value Reference Range Interpretation Comments Monocytes (test code = Monocytes) 6.3 2.0-12.0 N [facility] StationCdgtogrFUCZEBKWCJ2779-23-84 09:47:00 Test Item Value Reference Range Interpretation Comments MCV (test code = MCV) 82.8 81.0-99.0 N [facility] StationSpegmoxWLSQZTNAVU2465-67-23 09:47:00 Test Item Value Reference Range Interpretation Comments Hct (test code = Hct) 39.7 36.0-48.0 N [facility] StationCgroimlPAJQTLQGYO0163-19-71 09:47:00 Test Item Value Reference Range Interpretation Comments MCH (test code = MCH) 29.1 pg 27.0-31.0 N [facility] StationVwdehmdSIKAFFJOFF4792-05-02 09:47:00 Test Item Value Reference Range Interpretation Comments Hgb (test code = Hgb) 14.0 12.0-16.0 N [facility] StationPhermjvWQBDMOMHWM4806-83-03 09:47:00 Test Item Value Reference Range Interpretation Comments MCHC (test code = MCHC) 35.2 32.0-36.0 N [facility] StationDhrmfjqOBIRQZTKYG9940-46-34 09:47:00 Test Item Value Reference Range Interpretation Comments RDW (test code = RDW) 13.9 11.5-14.5 N [facility] StationXsqtborPDZGZQMHKE4363-69-05 09:47:00 Test Item Value Reference Range Interpretation Comments Platelet (test code = Platelet) 160 133-450 N [facility] StationOfakverHUPSEQLRPT8466-40-27 09:47:00 Test Item Value Reference Range Interpretation Comments MPV (test code = MPV) 11.9 7.4-10.4 H [facility] StationUearquiCYLBKLVFPX0764-10-44 09:47:00 Test Item Value Reference Range Interpretation Comments WBC (test code = WBC) 7.7 3.7-10.4 N [facility] StationNcziwsdZVOJLIJOJM3227-48-15 09:47:00 Test Item Value Reference Range Interpretation Comments RBC (test code = RBC) 4.80 4.20-5.40 N [facility] HospitalOzhjmjlPNJKLGQPQ8069-47-88 09:47:00 Test Item Value Reference Range Interpretation Comments Phosphorus (test code = Phosphorus) 2.5 2.5-4.5 N [facility] HospitalHvnkrriNWZKMPCXS2789-88-18 09:47:00 Test Item Value Reference Range Interpretation Comments Glucose Lvl (test code = Glucose Lvl) 201 [facility] HospitalSqsbjcxXWDVMMNKB3760-46-93 09:47:00 Test Item Value Reference Range Interpretation Comments BUN (test code = BUN) 7 7-22 N [facility] HospitalAomoqnnUWHFBSAPN2183-16-52 09:47:00 Test Item Value Reference Range Interpretation Comments CO2 (test code = CO2) 19 24-32 L [facility] HospitalOrnrjohRCHPUOOQS0948-45-57 09:47:00 Test Item Value Reference Range Interpretation Comments Creatinine Lvl (test code = Creatinine 0.3 0.5-1.4 L Lvl) [facility] HospitalEdjflihJQAFGXCHF6616-24-97 09:47:00 Test Item Value Reference Range Interpretation Comments Sodium Lvl (test code = Sodium Lvl) 137 135-145 N [facility] HospitalNwaelcqCJJCGGVGC8947-76-87 09:47:00 Test Item Value Reference Range Interpretation Comments Chloride Lvl (test code = Chloride Lvl) 103 95-109 N [facility] HospitalZnqkkboWNLBGDFTE2685-37-73 09:47:00 Test Item Value Reference Range Interpretation Comments Potassium Lvl (test code = Potassium 3.6 3.5-5.1 N Lvl) [facility] HospitalKhmivnbNPBKQCHFX9394-85-81 09:47:00 Test Item Value Reference Range Interpretation Comments Calcium Lvl (test code = Calcium Lvl) 7.9 8.5-10.5 L [facility] HospitalYylhgapZGLOYHCOH5208-89-66 09:47:00 Test Item Value Reference Range Interpretation Comments AGAP (test code = AGAP) 18.6 10.0-20.0 N [facility] HospitalAdilmzdUKOYNWYSW7708-15-22 09:47:00 Test Item Value Reference Range Interpretation Comments Magnesium Lvl (test code = Magnesium 1.6 1.8-2.4 L Lvl) [facility] StationTjddoxiMCXMFZVWOU9355-15-24 09:47:00 Test Item Value Reference Range Interpretation Comments Basophils # (test code 0.0 See_Comment N [Aut omated message] The = Basophils #) system which generated this result tra nsmitted reference range : <=0.2. The reference r leo was not used to int erpret this result as normal/abnormal . [facility] StationHgcuedkFQPPFFGWGU1025-49-44 09:47:00 Test Item Value Reference Range Interpretation Comments Eosinophils (test code = 0.4 See_Comment N [A utomated message] The Eosinophils) system which ge nerated this result tra nsmitted reference range : <=4.0. The reference r leo was not used to int erpret this result as normal/abnormal . [facility] StationRovxmdmSRCVHJHXDK3179-78-34 09:47:00 Test Item Value Reference Range Interpretation Comments Basophils (test code = 0.5 See_Comment N [Aut omated message] The Basophils) system which ge nerated this result tra nsmitted reference range : <=1.0. The reference r leo was not used to int erpret this result as normal/abnormal . [facility] StationQeduvccLURWVQZYRF4922-41-27 09:47:00 Test Item Value Reference Range Interpretation Comments Segs-Bands # (test code = Segs-Bands #) 5.9 1.5-8.1 N [facility] StationDqhqblnIWMOHPOBOU4764-50-02 09:47:00 Test Item Value Reference Range Interpretation Comments Lymphocytes # (test code = Lymphocytes 1.2 1.0-5.5 N #) [facility] StationHjollnpJVPPJAFPRF8245-28-90 09:47:00 Test Item Value Reference Range Interpretation Comments Monocytes # (test code 0.5 See_Comment N [Aut omated message] The = Monocytes #) system which generated this result tra nsmitted reference range : <=0.8. The reference r leo was not used to int erpret this result as normal/abnormal . [facility] StationGidgjkmCZTYQANQOC1197-05-48 09:47:00 Test Item Value Reference Range Interpretation Comments Eosinophils # (test code 0.0 See_Comment N [A utomated message] The = Eosinophils #) system whic h generated this result tra nsmitted reference range : <=0.5. The reference r leo was not used to int erpret this result as normal/abnormal . [facility] StationOzlbgvsMDLAHJLXYY9168-16-14 09:47:00 Test Item Value Reference Range Interpretation Comments Segs (test code = Segs) 76.9 45.0-75.0 H [facility] StationDgpydkoTIFYXVPLPT7799-84-15 09:47:00 Test Item Value Reference Range Interpretation Comments Lymphocytes (test code = Lymphocytes) 15.9 20.0-40.0 L [facility] StationCrxlcxtEYGMTLBMOH8220-59-37 09:47:00 Test Item Value Reference Range Interpretation Comments Monocytes (test code = Monocytes) 6.3 2.0-12.0 N [facility] StationDjmglfnULRBXRPPNH2275-19-65 09:47:00 Test Item Value Reference Range Interpretation Comments MCV (test code = MCV) 82.8 81.0-99.0 N [facility] StationHqwvqkmNZAPYXMCSR3812-30-54 09:47:00 Test Item Value Reference Range Interpretation Comments Hct (test code = Hct) 39.7 36.0-48.0 N [facility] StationIlylnvbBFBBXPAGKN5564-56-49 09:47:00 Test Item Value Reference Range Interpretation Comments MCH (test code = MCH) 29.1 pg 27.0-31.0 N [facility] StationDjntpphPGHVXCZTWY2778-09-60 09:47:00 Test Item Value Reference Range Interpretation Comments Hgb (test code = Hgb) 14.0 12.0-16.0 N [facility] StationSogxutpLWZZPKJUVL9570-85-68 09:47:00 Test Item Value Reference Range Interpretation Comments MCHC (test code = MCHC) 35.2 32.0-36.0 N [facility] StationAlgutsbBMLQOXVCIT2366-35-36 09:47:00 Test Item Value Reference Range Interpretation Comments RDW (test code = RDW) 13.9 11.5-14.5 N [facility] StationWntnapwSEUTOZPFAO3316-10-98 09:47:00 Test Item Value Reference Range Interpretation Comments Platelet (test code = Platelet) 160 133-450 N [facility] StationRwcenliTKNDFIXDWB8209-47-45 09:47:00 Test Item Value Reference Range Interpretation Comments MPV (test code = MPV) 11.9 7.4-10.4 H [facility] StationQoevaqkLRVIZETIEB2822-84-05 09:47:00 Test Item Value Reference Range Interpretation Comments WBC (test code = WBC) 7.7 3.7-10.4 N [facility] StationKupqfkzLNWLUAGUDA4950-56-32 09:47:00 Test Item Value Reference Range Interpretation Comments RBC (test code = RBC) 4.80 4.20-5.40 N [facility] HospitalPavswxbSCVUPZCLJ1347-57-07 09:47:00 Test Item Value Reference Range Interpretation Comments Phosphorus (test code = Phosphorus) 2.5 2.5-4.5 N [facility] HospitalRsfbpijWAWTIMCAL6870-75-98 09:47:00 Test Item Value Reference Range Interpretation Comments Glucose Lvl (test code = Glucose Lvl) 201 [facility] HospitalNtfljvhBFNMUSCYD5800-29-45 09:47:00 Test Item Value Reference Range Interpretation Comments BUN (test code = BUN) 7 7-22 N [facility] HospitalZmzzanuXGFJSCVRC9898-07-14 09:47:00 Test Item Value Reference Range Interpretation Comments CO2 (test code = CO2) 19 24-32 L [place] 068382-03-03 09:47:00 Test Item Value Reference Range Interpretation Comments Creatinine Lvl (test code = Creatinine 0.3 0.5-1.4 L Lvl) [facility] HospitalMboejmsRZIPOSWZG3770-46-25 09:47:00 Test Item Value Reference Range Interpretation Comments Sodium Lvl (test code = Sodium Lvl) 137 135-145 N [facility]NkqzvxhHQAPXCWSF3120-08-97 09:47:00 Test Item Value Reference Range Interpretation Comments Chloride Lvl (test code = Chloride Lvl) 103 95-109 N [facility] HospitalDjqebjfQWRDVKPQA6719-69-20 09:47:00 Test Item Value Reference Range Interpretation Comments Potassium Lvl (test code = Potassium 3.6 3.5-5.1 N Lvl) [facility] HospitalSimouwwMSTNYKZYW1047-13-72 09:47:00 Test Item Value Reference Range Interpretation Comments Calcium Lvl (test code = Calcium Lvl) 7.9 8.5-10.5 L [facility] HospitalTlmkhmmVWBVCYXOX3034-82-87 09:47:00 Test Item Value Reference Range Interpretation Comments AGAP (test code = AGAP) 18.6 10.0-20.0 N [facility] HospitalJzeepuiBDDDBEOQA8580-63-16 09:47:00 Test Item Value Reference Range Interpretation Comments Magnesium Lvl (test code = Magnesium 1.6 1.8-2.4 L Lvl) [facility] StationVysvuhfBWLPAWXMQT0514-57-47 09:47:00 Test Item Value Reference Range Interpretation Comments Basophils # (test code 0.0 See_Comment N [Aut omated message] The = Basophils #) system which generated this result tra nsmitted reference range : <=0.2. The reference r leo was not used to int erpret this result as normal/abnormal . [facility] StationLxrwmwpGUQZWBIEHV7829-62-34 09:47:00 Test Item Value Reference Range Interpretation Comments Eosinophils (test code = 0.4 See_Comment N [A utomated message] The Eosinophils) system which ge nerated this result tra nsmitted reference range : <=4.0. The reference r leo was not used to int erpret this result as normal/abnormal . [facility] StationEskoeorRRBNJRZZJR1549-18-49 09:47:00 Test Item Value Reference Range Interpretation Comments Basophils (test code = 0.5 See_Comment N [Aut omated message] The Basophils) system which ge nerated this result tra nsmitted reference range : <=1.0. The reference r leo was not used to int erpret this result as normal/abnormal . [facility] StationKkidxgxMBNKWHXMIM4202-20-61 09:47:00 Test Item Value Reference Range Interpretation Comments Segs-Bands # (test code = Segs-Bands #) 5.9 1.5-8.1 N [facility] StationWafjsqrGEEDQPJDXR2473-47-76 09:47:00 Test Item Value Reference Range Interpretation Comments Lymphocytes # (test code = Lymphocytes 1.2 1.0-5.5 N #) [facility] StationUlvrbcyEVBAPPGPGB2546-54-83 09:47:00 Test Item Value Reference Range Interpretation Comments Monocytes # (test code 0.5 See_Comment N [Aut omated message] The = Monocytes #) system which generated this result tra nsmitted reference range : <=0.8. The reference r leo was not used to int erpret this result as normal/abnormal . [facility] StationWcmxuozAEJTNKJOER9082-10-39 09:47:00 Test Item Value Reference Range Interpretation Comments Eosinophils # (test code 0.0 See_Comment N [A utomated message] The = Eosinophils #) system whic h generated this result tra nsmitted reference range : <=0.5. The reference r leo was not used to int erpret this result as normal/abnormal . [facility] StationUursujgAUHZETGIMG1940-01-39 09:47:00 Test Item Value Reference Range Interpretation Comments Segs (test code = Segs) 76.9 45.0-75.0 H [facility] StationNpfafibHJTNZSFPJU1642-67-95 09:47:00 Test Item Value Reference Range Interpretation Comments Lymphocytes (test code = Lymphocytes) 15.9 20.0-40.0 L [facility] StationWyhffkeLOFKRQQEYL7216-87-80 09:47:00 Test Item Value Reference Range Interpretation Comments Monocytes (test code = Monocytes) 6.3 2.0-12.0 N [facility] StationPvajerrHYJHMTOUHX4521-57-22 09:47:00 Test Item Value Reference Range Interpretation Comments MCV (test code = MCV) 82.8 81.0-99.0 N [facility] StationDnrivygRJYVBTYYDU0331-29-98 09:47:00 Test Item Value Reference Range Interpretation Comments Hct (test code = Hct) 39.7 36.0-48.0 N [facility] StationTgesixcOFACLAHPWC5744-59-52 09:47:00 Test Item Value Reference Range Interpretation Comments MCH (test code = MCH) 29.1 pg 27.0-31.0 N [facility] StationVyazeyrVEFXEHZXZO1729-64-96 09:47:00 Test Item Value Reference Range Interpretation Comments Hgb (test code = Hgb) 14.0 12.0-16.0 N [facility] StationLyotptjJNSPRCEXEH9659-51-09 09:47:00 Test Item Value Reference Range Interpretation Comments MCHC (test code = MCHC) 35.2 32.0-36.0 N [facility] StationJrcgqgsYYGAQHYQMG1579-99-50 09:47:00 Test Item Value Reference Range Interpretation Comments RDW (test code = RDW) 13.9 11.5-14.5 N [facility] StationDuchmivKZJVCQXQSX8008-42-36 09:47:00 Test Item Value Reference Range Interpretation Comments Platelet (test code = Platelet) 160 133-450 N [facility] StationQfhtxvwQDGLYGSWWH6253-34-51 09:47:00 Test Item Value Reference Range Interpretation Comments MPV (test code = MPV) 11.9 7.4-10.4 H [facility] StationHoprsffEYIQJRADSQ1945-09-24 09:47:00 Test Item Value Reference Range Interpretation Comments WBC (test code = WBC) 7.7 3.7-10.4 N [facility] StationKkhahxkEVECOTZDCT4391-30-41 09:47:00 Test Item Value Reference Range Interpretation Comments RBC (test code = RBC) 4.80 4.20-5.40 N [facility] HospitalLigpqkcCBAQPGLGP6143-08-88 09:47:00 Test Item Value Reference Range Interpretation Comments Phosphorus (test code = Phosphorus) 2.5 2.5-4.5 N [facility] HospitalHchxwtiQYLUMLSXX1126-67-39 09:47:00 Test Item Value Reference Range Interpretation Comments Glucose Lvl (test code = Glucose Lvl) 201 [facility] HospitalQerqpjrTHJQRTHNA7562-11-64 09:47:00 Test Item Value Reference Range Interpretation Comments BUN (test code = BUN) 7 7-22 N [facility] HospitalNkixdtoFXJPJDXSD2881-60-62 09:47:00 Test Item Value Reference Range Interpretation Comments CO2 (test code = CO2) 19 24-32 L [facility] HospitalYndwxjhXCXNHDXMU4273-97-37 09:47:00 Test Item Value Reference Range Interpretation Comments Creatinine Lvl (test code = Creatinine 0.3 0.5-1.4 L Lvl) [facility] HospitalBkoznovDAMNIVUCD3045-92-58 09:47:00 Test Item Value Reference Range Interpretation Comments Sodium Lvl (test code = Sodium Lvl) 137 135-145 N [facility] HospitalSwyzbxlEZOILSKHA1233-23-43 09:47:00 Test Item Value Reference Range Interpretation Comments Chloride Lvl (test code = Chloride Lvl) 103 95-109 N [facility] HospitalYvwqlhyHZJPTGQVV8826-29-48 09:47:00 Test Item Value Reference Range Interpretation Comments Potassium Lvl (test code = Potassium 3.6 3.5-5.1 N Lvl) [facility] HospitalWeuotyaJEBDDOCBB2169-68-16 09:47:00 Test Item Value Reference Range Interpretation Comments Calcium Lvl (test code = Calcium Lvl) 7.9 8.5-10.5 L [facility] HospitalUcfvfxmIHLNTNEIK9385-67-00 09:47:00 Test Item Value Reference Range Interpretation Comments AGAP (test code = AGAP) 18.6 10.0-20.0 N [facility] HospitalHaktqjkNHFHIZFBI3036-93-52 09:47:00 Test Item Value Reference Range Interpretation Comments Magnesium Lvl (test code = Magnesium 1.6 1.8-2.4 L Lvl) [facility] StationAheeqmmVEFDSYKCBN2278-73-03 09:47:00 Test Item Value Reference Range Interpretation Comments Basophils # (test code 0.0 See_Comment N [Aut omated message] The = Basophils #) system which generated this result tra nsmitted reference range : <=0.2. The reference r leo was not used to int erpret this result as normal/abnormal . [facility] StationUcrzoudYPTMMGQEVA1750-53-27 09:47:00 Test Item Value Reference Range Interpretation Comments Eosinophils (test code = 0.4 See_Comment N [A utomated message] The Eosinophils) system which ge nerated this result tra nsmitted reference range : <=4.0. The reference r leo was not used to int erpret this result as normal/abnormal . [facility] StationHbstjqhCWRTRFCFWU8200-97-54 09:47:00 Test Item Value Reference Range Interpretation Comments Basophils (test code = 0.5 See_Comment N [Aut omated message] The Basophils) system which ge nerated this result tra nsmitted reference range : <=1.0. The reference r leo was not used to int erpret this result as normal/abnormal . [facility] StationJsqaqxcIZSBXAVSYI9458-22-26 09:47:00 Test Item Value Reference Range Interpretation Comments Segs-Bands # (test code = Segs-Bands #) 5.9 1.5-8.1 N [facility] StationCeyuyssCQVHGJHHNN8873-43-46 09:47:00 Test Item Value Reference Range Interpretation Comments Lymphocytes # (test code = Lymphocytes 1.2 1.0-5.5 N #) [facility] StationRmykzuuXYKWCBTSYE4520-48-07 09:47:00 Test Item Value Reference Range Interpretation Comments Monocytes # (test code 0.5 See_Comment N [Aut omated message] The = Monocytes #) system which generated this result tra nsmitted reference range : <=0.8. The reference r leo was not used to int erpret this result as normal/abnormal . [facility] StationNcvavhsPEWKSURXDI6987-51-39 09:47:00 Test Item Value Reference Range Interpretation Comments Eosinophils # (test code 0.0 See_Comment N [A utomated message] The = Eosinophils #) system whic h generated this result tra nsmitted reference range : <=0.5. The reference r leo was not used to int erpret this result as normal/abnormal . [facility] StationPmpctyjSGJUUWFCRB7770-14-02 09:47:00 Test Item Value Reference Range Interpretation Comments Segs (test code = Segs) 76.9 45.0-75.0 H [facility] StationEkfjvrsDAIOAZCYDZ5242-36-51 09:47:00 Test Item Value Reference Range Interpretation Comments Lymphocytes (test code = Lymphocytes) 15.9 20.0-40.0 L [facility] StationUjpvqtpQAHCPBWXVQ4812-24-52 09:47:00 Test Item Value Reference Range Interpretation Comments Monocytes (test code = Monocytes) 6.3 2.0-12.0 N [facility] StationTxkwzjkXLMXOHGTIC9325-22-11 09:47:00 Test Item Value Reference Range Interpretation Comments MCV (test code = MCV) 82.8 81.0-99.0 N [facility] StationHcvdxjcPFXREMQGNN6134-56-23 09:47:00 Test Item Value Reference Range Interpretation Comments Hct (test code = Hct) 39.7 36.0-48.0 N [facility] StationRuafskuGMOCSVBXBM1790-85-07 09:47:00 Test Item Value Reference Range Interpretation Comments MCH (test code = MCH) 29.1 pg 27.0-31.0 N [facility] StationIxkropiJJDDNRIVYD6029-63-40 09:47:00 Test Item Value Reference Range Interpretation Comments Hgb (test code = Hgb) 14.0 12.0-16.0 N [facility] StationVeepaaaWBIFIVYVSV3206-64-97 09:47:00 Test Item Value Reference Range Interpretation Comments MCHC (test code = MCHC) 35.2 32.0-36.0 N [facility] StationQzdxagdGBEENOIFUD5848-57-57 09:47:00 Test Item Value Reference Range Interpretation Comments RDW (test code = RDW) 13.9 11.5-14.5 N [facility] StationMrktrajFZCVEOXAPV8454-76-11 09:47:00 Test Item Value Reference Range Interpretation Comments Platelet (test code = Platelet) 160 133-450 N [facility] StationNskyzjrTZDTBDWEET6548-64-09 09:47:00 Test Item Value Reference Range Interpretation Comments MPV (test code = MPV) 11.9 7.4-10.4 H [facility] StationYzoisaeGVDGNMDNVN0784-68-22 09:47:00 Test Item Value Reference Range Interpretation Comments WBC (test code = WBC) 7.7 3.7-10.4 N [facility] StationZwhcuzhCUACIVLEWH3790-38-16 09:47:00 Test Item Value Reference Range Interpretation Comments RBC (test code = RBC) 4.80 4.20-5.40 N [facility] HospitalShjlkhzHGSCIZYDJ1990-22-71 09:47:00 Test Item Value Reference Range Interpretation Comments Phosphorus (test code = Phosphorus) 2.5 2.5-4.5 N [facility] HospitalHabskpcWBRFCSQUM3781-13-48 09:47:00 Test Item Value Reference Range Interpretation Comments Glucose Lvl (test code = Glucose Lvl) 201 [facility] HospitalPdnudqcMOSIZOKST4098-86-85 09:47:00 Test Item Value Reference Range Interpretation Comments BUN (test code = BUN) 7 7-22 N [facility] HospitalRwlgagsTXXIBZCID4874-79-55 09:47:00 Test Item Value Reference Range Interpretation Comments CO2 (test code = CO2) 19 24-32 L [facility] HospitalLffuxmaEVIMMKVDN2045-82-94 09:47:00 Test Item Value Reference Range Interpretation Comments Creatinine Lvl (test code = Creatinine 0.3 0.5-1.4 L Lvl) [facility] HospitalTmgpysuCHFCTSSLV3205-26-76 09:47:00 Test Item Value Reference Range Interpretation Comments Sodium Lvl (test code = Sodium Lvl) 137 135-145 N [facility] HospitalCyjbeexUSMJCPLWF7847-57-58 09:47:00 Test Item Value Reference Range Interpretation Comments Chloride Lvl (test code = Chloride Lvl) 103 95-109 N [facility] HospitalBaiujmtLVFXEPXTW9252-87-94 09:47:00 Test Item Value Reference Range Interpretation Comments Potassium Lvl (test code = Potassium 3.6 3.5-5.1 N Lvl) [facility] HospitalVgleeaqBRCQJUQJE4401-04-30 09:47:00 Test Item Value Reference Range Interpretation Comments Calcium Lvl (test code = Calcium Lvl) 7.9 8.5-10.5 L [facility] HospitalQfeakfpGQKYYNJNV9888-40-86 09:47:00 Test Item Value Reference Range Interpretation Comments AGAP (test code = AGAP) 18.6 10.0-20.0 N [facility] HospitalRoyjuzbQFFHEJCQS0954-40-20 09:47:00 Test Item Value Reference Range Interpretation Comments Magnesium Lvl (test code = Magnesium 1.6 1.8-2.4 L Lvl) [facility] StationQvqizdyUVBULVAJAC0294-85-49 09:47:00 Test Item Value Reference Range Interpretation Comments Basophils # (test code 0.0 See_Comment N [Aut omated message] The = Basophils #) system which generated this result tra nsmitted reference range : <=0.2. The reference r leo was not used to int erpret this result as normal/abnormal . [facility] StationGrooiplKSQFERZVKG3255-25-53 09:47:00 Test Item Value Reference Range Interpretation Comments Eosinophils (test code = 0.4 See_Comment N [A utomated message] The Eosinophils) system which ge nerated this result tra nsmitted reference range : <=4.0. The reference r leo was not used to int erpret this result as normal/abnormal . [facility] StationCysajvmERUDKXLGUJ2497-60-98 09:47:00 Test Item Value Reference Range Interpretation Comments Basophils (test code = 0.5 See_Comment N [Aut omated message] The Basophils) system which ge nerated this result tra nsmitted reference range : <=1.0. The reference r leo was not used to int erpret this result as normal/abnormal . [facility] StationPtrmbfgUOOFEAGELD5879-75-54 09:47:00 Test Item Value Reference Range Interpretation Comments Segs-Bands # (test code = Segs-Bands #) 5.9 1.5-8.1 N [facility] StationYkvrqimYTHVPLUOOI9183-78-04 09:47:00 Test Item Value Reference Range Interpretation Comments Lymphocytes # (test code = Lymphocytes 1.2 1.0-5.5 N #) [facility] StationEgjoqyiPYUGHNFQAV8918-52-33 09:47:00 Test Item Value Reference Range Interpretation Comments Monocytes # (test code 0.5 See_Comment N [Aut omated message] The = Monocytes #) system which generated this result tra nsmitted reference range : <=0.8. The reference r leo was not used to int erpret this result as normal/abnormal . [facility] StationSttpwikQPLYFYDWXB3259-06-66 09:47:00 Test Item Value Reference Range Interpretation Comments Eosinophils # (test code 0.0 See_Comment N [A utomated message] The = Eosinophils #) system whic h generated this result tra nsmitted reference range : <=0.5. The reference r leo was not used to int erpret this result as normal/abnormal . [facility] StationUchjlfaYDIUFKJQEP1535-88-26 09:47:00 Test Item Value Reference Range Interpretation Comments Segs (test code = Segs) 76.9 45.0-75.0 H [facility] StationScmpezkHALKOGZIEC0138-50-25 09:47:00 Test Item Value Reference Range Interpretation Comments Lymphocytes (test code = Lymphocytes) 15.9 20.0-40.0 L [facility] StationDovwombXMPVSRKWDS8572-08-45 09:47:00 Test Item Value Reference Range Interpretation Comments Monocytes (test code = Monocytes) 6.3 2.0-12.0 N [facility] StationWqzmbblCJEYSBRYAV3649-37-31 09:47:00 Test Item Value Reference Range Interpretation Comments MCV (test code = MCV) 82.8 81.0-99.0 N [facility] StationCvdriqxGTTFCITNLD0776-91-04 09:47:00 Test Item Value Reference Range Interpretation Comments Hct (test code = Hct) 39.7 36.0-48.0 N [facility] StationXoltadqOZLTOHXTQV0414-68-63 09:47:00 Test Item Value Reference Range Interpretation Comments MCH (test code = MCH) 29.1 pg 27.0-31.0 N [facility] StationTrqlalkJHOOPYRCZP9029-57-77 09:47:00 Test Item Value Reference Range Interpretation Comments Hgb (test code = Hgb) 14.0 12.0-16.0 N [facility] StationHcgcwisDUWWRHKGIR1339-48-90 09:47:00 Test Item Value Reference Range Interpretation Comments MCHC (test code = MCHC) 35.2 32.0-36.0 N [facility] StationGgfbdjlBRSUPQOYJL3481-72-63 09:47:00 Test Item Value Reference Range Interpretation Comments RDW (test code = RDW) 13.9 11.5-14.5 N [facility] StationOvwaanrZDBMFMGRGP2299-89-64 09:47:00 Test Item Value Reference Range Interpretation Comments Platelet (test code = Platelet) 160 133-450 N [facility] StationFapgyerDZKKCNJWRA0881-26-84 09:47:00 Test Item Value Reference Range Interpretation Comments MPV (test code = MPV) 11.9 7.4-10.4 H [facility] StationDfssjzsBJZPTODKLX1557-92-98 09:47:00 Test Item Value Reference Range Interpretation Comments WBC (test code = WBC) 7.7 3.7-10.4 N [facility] StationRwfzploYLBXIMBBXV0194-44-78 09:47:00 Test Item Value Reference Range Interpretation Comments RBC (test code = RBC) 4.80 4.20-5.40 N [facility] HospitalKefqkmxIVMDWCGXQ1800-61-79 10:28:00 Test Item Value Reference Range Interpretation Comments Phosphorus (test code = Phosphorus) 2.6 2.5-4.5 N [facility] HospitalNxysuiyBJFYMMQPJ3798-38-31 10:28:00 Test Item Value Reference Range Interpretation Comments Magnesium Lvl (test code = Magnesium 1.8 1.8-2.4 N Lvl) [facility] HospitalRunmpzgSCUBNLJPH1790-52-67 10:28:00 Test Item Value Reference Range Interpretation Comments Potassium Lvl (test code = Potassium 3.7 3.5-5.1 N Lvl) [facility] HospitalKzthnkgEPDNQFBUO0288-47-23 10:28:00 Test Item Value Reference Range Interpretation Comments Sodium Lvl (test code = Sodium Lvl) 137 135-145 N [facility] HospitalZbahsmeYCWMSMIWT4624-43-89 10:28:00 Test Item Value Reference Range Interpretation Comments Creatinine Lvl (test code = Creatinine 0.6 0.5-1.4 N Lvl) [facility] HospitalMoynsupRIQVAQKXK1754-25-13 10:28:00 Test Item Value Reference Range Interpretation Comments BUN (test code = BUN) 16 7-22 N [facility] HospitalHdutplkACNFAOCJG6964-83-23 10:28:00 Test Item Value Reference Range Interpretation Comments Glucose Lvl (test code = Glucose Lvl) 200 [facility] HospitalOmazlvuUQQLIPNSK4094-84-02 10:28:00 Test Item Value Reference Range Interpretation Comments Calcium Lvl (test code = Calcium Lvl) 8.3 8.5-10.5 L [facility] HospitalXfuykviEVYESENCX9093-33-72 10:28:00 Test Item Value Reference Range Interpretation Comments AGAP (test code = AGAP) 19.7 10.0-20.0 N [facility] HospitalZyvmnsnVMJSTWMDF9112-76-10 10:28:00 Test Item Value Reference Range Interpretation Comments Chloride Lvl (test code = Chloride Lvl) 99 95-109 N [facility] HospitalKvuvfbfGTJMSDCWY3839-45-07 10:28:00 Test Item Value Reference Range Interpretation Comments CO2 (test code = CO2) 22 24-32 L [facility] StationNkkrfqpNKIVLKEJDT0611-50-83 10:28:00 Test Item Value Reference Range Interpretation Comments Platelet (test code = Platelet) 172 133-450 N [facility] StationYbeutgzXFJYZNKIHG1271-84-11 10:28:00 Test Item Value Reference Range Interpretation Comments MPV (test code = MPV) 12.0 7.4-10.4 H [facility] StationXdpmpmhJVXKTZJAAB8701-13-30 10:28:00 Test Item Value Reference Range Interpretation Comments WBC (test code = WBC) 7.3 3.7-10.4 N [facility] StationXddmnmlRCLHZRBJET6154-53-35 10:28:00 Test Item Value Reference Range Interpretation Comments RDW (test code = RDW) 14.6 11.5-14.5 H [facility] StationUtcfbigELSUWGORVM8053-73-51 10:28:00 Test Item Value Reference Range Interpretation Comments MCHC (test code = MCHC) 35.0 32.0-36.0 N [facility] StationCealzopUZWGRSAPRL2118-42-97 10:28:00 Test Item Value Reference Range Interpretation Comments RBC (test code = RBC) 4.54 4.20-5.40 N [facility] StationUrrypzdMVPFVEGHYS8939-17-19 10:28:00 Test Item Value Reference Range Interpretation Comments Hct (test code = Hct) 37.6 36.0-48.0 N [facility] StationGsalmdfBRRUQQWWDK7992-26-98 10:28:00 Test Item Value Reference Range Interpretation Comments MCV (test code = MCV) 82.9 81.0-99.0 N [facility] StationWgwwyobTUXUPHGZCQ2092-20-87 10:28:00 Test Item Value Reference Range Interpretation Comments MCH (test code = MCH) 29.0 pg 27.0-31.0 N [facility] StationTyjnujiLZVCBIMFTF4859-69-45 10:28:00 Test Item Value Reference Range Interpretation Comments Hgb (test code = Hgb) 13.2 12.0-16.0 N [facility] StationUkfsorhVRVOGSADDY0945-77-39 10:28:00 Test Item Value Reference Range Interpretation Comments Elliptocyte (test code = Slight A Elliptocyte) *ABN*(08/21/2011 04:28:00) [facility] StationWgqxsglWTEBVAFIHM5228-37-46 10:28:00 Test Item Value Reference Range Interpretation Comments Polychrom (test code = Slight (08/21/2011 N Polychrom) 04:28:00) [facility] StationLfcxlazLWFXYJIIKY4763-64-65 10:28:00 Test Item Value Reference Range Interpretation Comments Basophils # (test code 0.0 See_Comment N [Aut omated message] The = Basophils #) system which generated this result tra nsmitted reference range : <=0.2. The reference r leo was not used to int erpret this result as normal/abnormal . [facility] StationIzguidmNARUUFDXAO6423-89-00 10:28:00 Test Item Value Reference Range Interpretation Comments Hypochrom (test code = Slight (08/21/2011 N Hypochrom) 04:28:00) [facility] StationFtgxfltCOJQKKOLUX1113-38-85 10:28:00 Test Item Value Reference Range Interpretation Comments Monocytes # (test code 0.6 See_Comment N [Aut omated message] The = Monocytes #) system which generated this result tra nsmitted reference range : <=0.8. The reference r leo was not used to int erpret this result as normal/abnormal . [facility] StationPhlxangTVSYQZGSZH3261-04-06 10:28:00 Test Item Value Reference Range Interpretation Comments Eosinophils # (test code 0.0 See_Comment N [A utomated message] The = Eosinophils #) system whic h generated this result tra nsmitted reference range : <=0.5. The reference r leo was not used to int erpret this result as normal/abnormal . [facility] StationCvarvoeLSPZDEFPCM3262-77-48 10:28:00 Test Item Value Reference Range Interpretation Comments Segs-Bands # (test code = Segs-Bands #) 5.3 1.5-8.1 N [facility] StationXcjonmuCWPIYQNZLK0196-77-30 10:28:00 Test Item Value Reference Range Interpretation Comments Lymphocytes # (test code = Lymphocytes 1.3 1.0-5.5 N #) [facility] StationGfonugiBMDPECYJUN3425-06-65 10:28:00 Test Item Value Reference Range Interpretation Comments Basophils (test code = 0.5 See_Comment N [Aut omated message] The Basophils) system which ge nerated this result tra nsmitted reference range : <=1.0. The reference r leo was not used to int erpret this result as normal/abnormal . [facility] StationElnkgkbKHKVGAIOVI8955-90-25 10:28:00 Test Item Value Reference Range Interpretation Comments Monocytes (test code = Monocytes) 8.5 2.0-12.0 N [facility] StationDviatcpOIPULDJMMI0025-71-35 10:28:00 Test Item Value Reference Range Interpretation Comments Eosinophils (test code = 0.3 See_Comment N [A utomated message] The Eosinophils) system which ge nerated this result tra nsmitted reference range : <=4.0. The reference r leo was not used to int erpret this result as normal/abnormal . [facility] StationLjbqkabYNAPZYWDMR5987-16-75 10:28:00 Test Item Value Reference Range Interpretation Comments Lymphocytes (test code = Lymphocytes) 17.3 20.0-40.0 L [facility] StationEbojpceURJUZDXNEX7799-75-66 10:28:00 Test Item Value Reference Range Interpretation Comments Segs (test code = Segs) 73.4 45.0-75.0 N [facility] HospitalVisdmqfORLZCSXCI0251-49-38 10:28:00 Test Item Value Reference Range Interpretation Comments Phosphorus (test code = Phosphorus) 2.6 2.5-4.5 N [facility] HospitalRykmqrgKJAGCKOHT9919-59-22 10:28:00 Test Item Value Reference Range Interpretation Comments Magnesium Lvl (test code = Magnesium 1.8 1.8-2.4 N Lvl) [facility] HospitalGvenuskTHSQFYVFF6160-83-72 10:28:00 Test Item Value Reference Range Interpretation Comments Potassium Lvl (test code = Potassium 3.7 3.5-5.1 N Lvl) [facility] HospitalSlrrdvrERUKOJFAB4831-08-97 10:28:00 Test Item Value Reference Range Interpretation Comments Sodium Lvl (test code = Sodium Lvl) 137 135-145 N [facility] HospitalDozjploIPLTYHZBM5971-23-07 10:28:00 Test Item Value Reference Range Interpretation Comments Creatinine Lvl (test code = Creatinine 0.6 0.5-1.4 N Lvl) [facility] HospitalNavynjfGZAILVFJE0609-46-84 10:28:00 Test Item Value Reference Range Interpretation Comments BUN (test code = BUN) 16 7-22 N [facility] HospitalVosfqkfHNDXQNAED8547-09-96 10:28:00 Test Item Value Reference Range Interpretation Comments Glucose Lvl (test code = Glucose Lvl) 200 [facility] HospitalHssxqvwKVYCQNGQX8558-78-16 10:28:00 Test Item Value Reference Range Interpretation Comments Calcium Lvl (test code = Calcium Lvl) 8.3 8.5-10.5 L [facility] HospitalAwgwyxjUALRIZGIH6435-12-09 10:28:00 Test Item Value Reference Range Interpretation Comments AGAP (test code = AGAP) 19.7 10.0-20.0 N [facility] HospitalNbvhwsaWDSKOSDHG2060-66-81 10:28:00 Test Item Value Reference Range Interpretation Comments Chloride Lvl (test code = Chloride Lvl) 99 95-109 N [facility] HospitalEpuosinLGSEZDKSF9226-29-04 10:28:00 Test Item Value Reference Range Interpretation Comments CO2 (test code = CO2) 22 24-32 L [facility] StationRwzlbcyPJOVJZLUJX2787-40-53 10:28:00 Test Item Value Reference Range Interpretation Comments Platelet (test code = Platelet) 172 133-450 N [facility] StationBvmmvgeDNLFKMJMUC4448-85-31 10:28:00 Test Item Value Reference Range Interpretation Comments MPV (test code = MPV) 12.0 7.4-10.4 H [facility] StationTwczbliSSGTXHDTZO0037-52-00 10:28:00 Test Item Value Reference Range Interpretation Comments WBC (test code = WBC) 7.3 3.7-10.4 N [facility] StationPahnzjxIBPFMDWWJD1440-69-13 10:28:00 Test Item Value Reference Range Interpretation Comments RDW (test code = RDW) 14.6 11.5-14.5 H [facility] StationYggtznrPQSDNLPUYZ0191-30-92 10:28:00 Test Item Value Reference Range Interpretation Comments MCHC (test code = MCHC) 35.0 32.0-36.0 N [facility] StationFdjdeupMBSBRMXOEU1925-17-73 10:28:00 Test Item Value Reference Range Interpretation Comments RBC (test code = RBC) 4.54 4.20-5.40 N [facility] StationYoosetmRLOLNNBLCT0616-09-80 10:28:00 Test Item Value Reference Range Interpretation Comments Hct (test code = Hct) 37.6 36.0-48.0 N [facility] StationSurorywTMEGPOOZXP4265-27-71 10:28:00 Test Item Value Reference Range Interpretation Comments MCV (test code = MCV) 82.9 81.0-99.0 N [facility] StationRluotoqQUPDCPRWYM1844-37-04 10:28:00 Test Item Value Reference Range Interpretation Comments MCH (test code = MCH) 29.0 pg 27.0-31.0 N [facility] StationCeostmtICMVEULICK5444-30-16 10:28:00 Test Item Value Reference Range Interpretation Comments Hgb (test code = Hgb) 13.2 12.0-16.0 N [facility] StationVjdelxrGXWEMDPOSX9797-73-54 10:28:00 Test Item Value Reference Range Interpretation Comments Elliptocyte (test code = Slight A Elliptocyte) *ABN*(08/21/2011 04:28:00) [facility] StationPmurjndJLMVBGLQEW6247-77-28 10:28:00 Test Item Value Reference Range Interpretation Comments Polychrom (test code = Slight (08/21/2011 N Polychrom) 04:28:00) [facility] StationKleqnycWTGZBQITTR7492-12-54 10:28:00 Test Item Value Reference Range Interpretation Comments Basophils # (test code 0.0 See_Comment N [Aut omated message] The = Basophils #) system which generated this result tra nsmitted reference range : <=0.2. The reference r leo was not used to int erpret this result as normal/abnormal . [facility] StationLewyoyaXYJQRSTVTS1894-36-20 10:28:00 Test Item Value Reference Range Interpretation Comments Hypochrom (test code = Slight (08/21/2011 N Hypochrom) 04:28:00) [facility] StationIypikpuONGRZHJLUA9286-87-02 10:28:00 Test Item Value Reference Range Interpretation Comments Monocytes # (test code 0.6 See_Comment N [Aut omated message] The = Monocytes #) system which generated this result tra nsmitted reference range : <=0.8. The reference r leo was not used to int erpret this result as normal/abnormal . [facility] StationRtqocayKSALCHVFAG1715-90-90 10:28:00 Test Item Value Reference Range Interpretation Comments Eosinophils # (test code 0.0 See_Comment N [A utomated message] The = Eosinophils #) system whic h generated this result tra nsmitted reference range : <=0.5. The reference r leo was not used to int erpret this result as normal/abnormal . [facility] StationXboelblCTOHCPORKH9156-71-25 10:28:00 Test Item Value Reference Range Interpretation Comments Segs-Bands # (test code = Segs-Bands #) 5.3 1.5-8.1 N [facility] StationMlrpkqdRPNRVAVSOO5290-77-48 10:28:00 Test Item Value Reference Range Interpretation Comments Lymphocytes # (test code = Lymphocytes 1.3 1.0-5.5 N #) [facility] StationXqztzktBKRYPJJDCX5575-83-93 10:28:00 Test Item Value Reference Range Interpretation Comments Basophils (test code = 0.5 See_Comment N [Aut omated message] The Basophils) system which ge nerated this result tra nsmitted reference range : <=1.0. The reference r leo was not used to int erpret this result as normal/abnormal . [facility] StationIcelrhrOUUEQKFELG2877-55-04 10:28:00 Test Item Value Reference Range Interpretation Comments Monocytes (test code = Monocytes) 8.5 2.0-12.0 N [facility] StationUoktnsyZWYFWZEHHX8182-56-60 10:28:00 Test Item Value Reference Range Interpretation Comments Eosinophils (test code = 0.3 See_Comment N [A utomated message] The Eosinophils) system which ge nerated this result tra nsmitted reference range : <=4.0. The reference r leo was not used to int erpret this result as normal/abnormal . [facility] StationXpiezzlGJCZMYHXIL5263-42-69 10:28:00 Test Item Value Reference Range Interpretation Comments Lymphocytes (test code = Lymphocytes) 17.3 20.0-40.0 L [facility] StationFzmlbynADKGUOXNPR4275-22-89 10:28:00 Test Item Value Reference Range Interpretation Comments Segs (test code = Segs) 73.4 45.0-75.0 N [facility] HospitalZrgqlveVJKEETVVJ5669-43-49 10:28:00 Test Item Value Reference Range Interpretation Comments Phosphorus (test code = Phosphorus) 2.6 2.5-4.5 N [facility] HospitalJfjippiZNGJBITHJ7869-52-29 10:28:00 Test Item Value Reference Range Interpretation Comments Magnesium Lvl (test code = Magnesium 1.8 1.8-2.4 N Lvl) [facility] HospitalCpffmupVVPKCXSGU0712-19-34 10:28:00 Test Item Value Reference Range Interpretation Comments Potassium Lvl (test code = Potassium 3.7 3.5-5.1 N Lvl) [facility] HospitalVimqvgcSOWIWRWJH7776-97-22 10:28:00 Test Item Value Reference Range Interpretation Comments Sodium Lvl (test code = Sodium Lvl) 137 135-145 N [facility] HospitalIpvzpjvIBMLCIOYW9809-60-01 10:28:00 Test Item Value Reference Range Interpretation Comments Creatinine Lvl (test code = Creatinine 0.6 0.5-1.4 N Lvl) [facility] HospitalVqufnhwDWFXCFRIA3077-18-26 10:28:00 Test Item Value Reference Range Interpretation Comments BUN (test code = BUN) 16 7-22 N [facility] HospitalPiokwwfCMPTTOPCH6773-20-02 10:28:00 Test Item Value Reference Range Interpretation Comments Glucose Lvl (test code = Glucose Lvl) 200 [facility] HospitalBosjndiQMNZVGWXY8426-29-66 10:28:00 Test Item Value Reference Range Interpretation Comments Calcium Lvl (test code = Calcium Lvl) 8.3 8.5-10.5 L [facility] HospitalUgrelnrSZZSNABMM3673-61-50 10:28:00 Test Item Value Reference Range Interpretation Comments AGAP (test code = AGAP) 19.7 10.0-20.0 N [facility] HospitalQuaqvbuKDAOXTGXQ3663-74-87 10:28:00 Test Item Value Reference Range Interpretation Comments Chloride Lvl (test code = Chloride Lvl) 99 95-109 N [facility] HospitalUrypoqjKQYUOFKVZ8700-80-52 10:28:00 Test Item Value Reference Range Interpretation Comments CO2 (test code = CO2) 22 24-32 L [facility] StationYtumjgqELRVLMZNET3492-10-05 10:28:00 Test Item Value Reference Range Interpretation Comments Platelet (test code = Platelet) 172 133-450 N [facility] StationHtouasyXHCOPGVAJW3487-79-03 10:28:00 Test Item Value Reference Range Interpretation Comments MPV (test code = MPV) 12.0 7.4-10.4 H [facility] StationBupsfdaRZABEIIXBN2940-77-98 10:28:00 Test Item Value Reference Range Interpretation Comments WBC (test code = WBC) 7.3 3.7-10.4 N [facility] StationFmlpnknESJJDCOICJ6898-30-05 10:28:00 Test Item Value Reference Range Interpretation Comments RDW (test code = RDW) 14.6 11.5-14.5 H [facility] StationFvfjchpAZVRBVKEKV0353-79-54 10:28:00 Test Item Value Reference Range Interpretation Comments MCHC (test code = MCHC) 35.0 32.0-36.0 N [facility] StationOmruujyVVFBRLANRE1119-59-77 10:28:00 Test Item Value Reference Range Interpretation Comments RBC (test code = RBC) 4.54 4.20-5.40 N [facility] StationUouuhczAZACFYUFAK4782-00-25 10:28:00 Test Item Value Reference Range Interpretation Comments Hct (test code = Hct) 37.6 36.0-48.0 N [facility] StationEnsozusOJCLEIPYNV6001-90-99 10:28:00 Test Item Value Reference Range Interpretation Comments MCV (test code = MCV) 82.9 81.0-99.0 N [facility] StationNjvfwmlGJPTDLBZIO1761-42-61 10:28:00 Test Item Value Reference Range Interpretation Comments MCH (test code = MCH) 29.0 pg 27.0-31.0 N [facility] StationKarhaubPSMKDBGKVS2564-63-29 10:28:00 Test Item Value Reference Range Interpretation Comments Hgb (test code = Hgb) 13.2 12.0-16.0 N [facility] StationFfarhpxSFERRPOZIX2611-67-46 10:28:00 Test Item Value Reference Range Interpretation Comments Elliptocyte (test code = Slight A Elliptocyte) *ABN*(08/21/2011 04:28:00) [facility] StationTdvliqpFGGGHJSGGC2396-36-97 10:28:00 Test Item Value Reference Range Interpretation Comments Polychrom (test code = Slight (08/21/2011 N Polychrom) 04:28:00) [facility] StationNluhvfwXSHVJTHILS0549-36-73 10:28:00 Test Item Value Reference Range Interpretation Comments Basophils # (test code 0.0 See_Comment N [Aut omated message] The = Basophils #) system which generated this result tra nsmitted reference range : <=0.2. The reference r leo was not used to int erpret this result as normal/abnormal . [facility] StationEdyjmibCAWUPSNDDQ3704-93-83 10:28:00 Test Item Value Reference Range Interpretation Comments Hypochrom (test code = Slight (08/21/2011 N Hypochrom) 04:28:00) [facility] StationJtnbhbfUBDJSBLECZ5474-64-27 10:28:00 Test Item Value Reference Range Interpretation Comments Monocytes # (test code 0.6 See_Comment N [Aut omated message] The = Monocytes #) system which generated this result tra nsmitted reference range : <=0.8. The reference r leo was not used to int erpret this result as normal/abnormal . [facility] StationEgelmadWYWUJNGYDZ4094-14-30 10:28:00 Test Item Value Reference Range Interpretation Comments Eosinophils # (test code 0.0 See_Comment N [A utomated message] The = Eosinophils #) system whic h generated this result tra nsmitted reference range : <=0.5. The reference r leo was not used to int erpret this result as normal/abnormal . [facility] StationGplydzmYFDSCFTENW3635-68-58 10:28:00 Test Item Value Reference Range Interpretation Comments Segs-Bands # (test code = Segs-Bands #) 5.3 1.5-8.1 N [facility] StationMjbkrekAEIGICXYEN8224-55-48 10:28:00 Test Item Value Reference Range Interpretation Comments Lymphocytes # (test code = Lymphocytes 1.3 1.0-5.5 N #) [facility] StationQnzmiueQHAKCGKZWQ1244-17-67 10:28:00 Test Item Value Reference Range Interpretation Comments Basophils (test code = 0.5 See_Comment N [Aut omated message] The Basophils) system which ge nerated this result tra nsmitted reference range : <=1.0. The reference r leo was not used to int erpret this result as normal/abnormal . [facility] StationYvdjgavXCWCMFITQS0133-95-05 10:28:00 Test Item Value Reference Range Interpretation Comments Monocytes (test code = Monocytes) 8.5 2.0-12.0 N [facility] StationBttzmeqFYFBJHZZIL5735-93-03 10:28:00 Test Item Value Reference Range Interpretation Comments Eosinophils (test code = 0.3 See_Comment N [A utomated message] The Eosinophils) system which ge nerated this result tra nsmitted reference range : <=4.0. The reference r leo was not used to int erpret this result as normal/abnormal . [facility] StationIvkkmipYAHVMDJWBL1256-18-91 10:28:00 Test Item Value Reference Range Interpretation Comments Lymphocytes (test code = Lymphocytes) 17.3 20.0-40.0 L [facility] StationRagfxjzUWCTIBBXFW3649-30-39 10:28:00 Test Item Value Reference Range Interpretation Comments Segs (test code = Segs) 73.4 45.0-75.0 N [facility] HospitalQxtlprnHZMEGSDLI7519-26-31 10:28:00 Test Item Value Reference Range Interpretation Comments Phosphorus (test code = Phosphorus) 2.6 2.5-4.5 N [facility] HospitalSdohawyLJBCMVBIZ4331-75-30 10:28:00 Test Item Value Reference Range Interpretation Comments Magnesium Lvl (test code = Magnesium 1.8 1.8-2.4 N Lvl) [facility] HospitalLbqemjcVGWQUAWPB5345-54-45 10:28:00 Test Item Value Reference Range Interpretation Comments Potassium Lvl (test code = Potassium 3.7 3.5-5.1 N Lvl) [facility] HospitalSoakupgUUNETAWXI1664-35-32 10:28:00 Test Item Value Reference Range Interpretation Comments Sodium Lvl (test code = Sodium Lvl) 137 135-145 N [facility] HospitalSywxqmpLLSTLZQID4084-13-68 10:28:00 Test Item Value Reference Range Interpretation Comments Creatinine Lvl (test code = Creatinine 0.6 0.5-1.4 N Lvl) [facility] HospitalEargiufLAUGTSTXN7759-42-68 10:28:00 Test Item Value Reference Range Interpretation Comments BUN (test code = BUN) 16 7-22 N [facility] HospitalKgjqfjxSSSAYKRLY9155-32-12 10:28:00 Test Item Value Reference Range Interpretation Comments Glucose Lvl (test code = Glucose Lvl) 200 [facility] HospitalLdvyrwaGNTSJZNIO2397-88-98 10:28:00 Test Item Value Reference Range Interpretation Comments Calcium Lvl (test code = Calcium Lvl) 8.3 8.5-10.5 L [facility] HospitalLjodtksWPCOCKOUV6529-36-51 10:28:00 Test Item Value Reference Range Interpretation Comments AGAP (test code = AGAP) 19.7 10.0-20.0 N [facility] HospitalXipryqsEFYTTHZRS7899-12-59 10:28:00 Test Item Value Reference Range Interpretation Comments Chloride Lvl (test code = Chloride Lvl) 99 95-109 N [facility] HospitalZmqboxvRJZCPPMZF3548-12-88 10:28:00 Test Item Value Reference Range Interpretation Comments CO2 (test code = CO2) 22 24-32 L [facility] StationRuzumrjDAQWFCQJXA2011-50-77 10:28:00 Test Item Value Reference Range Interpretation Comments Platelet (test code = Platelet) 172 133-450 N [facility] StationAzdsvowZXRSDYTZRY3470-23-51 10:28:00 Test Item Value Reference Range Interpretation Comments MPV (test code = MPV) 12.0 7.4-10.4 H [facility] StationXurloqrPAZFMERMDZ5550-69-66 10:28:00 Test Item Value Reference Range Interpretation Comments WBC (test code = WBC) 7.3 3.7-10.4 N [facility] StationHqdvcdhKVKUGYLJAO4972-70-97 10:28:00 Test Item Value Reference Range Interpretation Comments RDW (test code = RDW) 14.6 11.5-14.5 H [facility] StationSptuzbzRCACICHITL8414-50-85 10:28:00 Test Item Value Reference Range Interpretation Comments MCHC (test code = MCHC) 35.0 32.0-36.0 N [facility] StationNmzsccwNGROTUEEPM3238-50-89 10:28:00 Test Item Value Reference Range Interpretation Comments RBC (test code = RBC) 4.54 4.20-5.40 N [facility] StationZepkgphKQQPLJVICA4273-81-08 10:28:00 Test Item Value Reference Range Interpretation Comments Hct (test code = Hct) 37.6 36.0-48.0 N [facility] StationAjydptkIXPOFHGFWC2583-37-67 10:28:00 Test Item Value Reference Range Interpretation Comments MCV (test code = MCV) 82.9 81.0-99.0 N [facility] StationIjyjntyNKPWEYCPEZ7114-89-35 10:28:00 Test Item Value Reference Range Interpretation Comments MCH (test code = MCH) 29.0 pg 27.0-31.0 N [facility] StationEnggkgbBEHTODGFGI6149-72-42 10:28:00 Test Item Value Reference Range Interpretation Comments Hgb (test code = Hgb) 13.2 12.0-16.0 N [facility] StationQvqxkukXYBBOCMZVF1503-58-27 10:28:00 Test Item Value Reference Range Interpretation Comments Elliptocyte (test code = Slight A Elliptocyte) *ABN*(08/21/2011 04:28:00) [facility] StationGisuvrrKSHTIELFZV5154-14-69 10:28:00 Test Item Value Reference Range Interpretation Comments Polychrom (test code = Slight (08/21/2011 N Polychrom) 04:28:00) [facility] StationOzipsipCKWDIZZGRK2078-57-52 10:28:00 Test Item Value Reference Range Interpretation Comments Basophils # (test code 0.0 See_Comment N [Aut omated message] The = Basophils #) system which generated this result tra nsmitted reference range : <=0.2. The reference r leo was not used to int erpret this result as normal/abnormal . [facility] StationHhfbgslPCGEQWNMEL4206-12-05 10:28:00 Test Item Value Reference Range Interpretation Comments Hypochrom (test code = Slight (08/21/2011 N Hypochrom) 04:28:00) [facility] StationMgvzzwoERYJCTGCNP8644-58-21 10:28:00 Test Item Value Reference Range Interpretation Comments Monocytes # (test code 0.6 See_Comment N [Aut omated message] The = Monocytes #) system which generated this result tra nsmitted reference range : <=0.8. The reference r leo was not used to int erpret this result as normal/abnormal . [facility] StationQnhxypwKSBJOUIACI9905-89-01 10:28:00 Test Item Value Reference Range Interpretation Comments Eosinophils # (test code 0.0 See_Comment N [A utomated message] The = Eosinophils #) system whic h generated this result tra nsmitted reference range : <=0.5. The reference r leo was not used to int erpret this result as normal/abnormal . [facility] StationXmqayqfUNNWMRNDSS8627-65-39 10:28:00 Test Item Value Reference Range Interpretation Comments Segs-Bands # (test code = Segs-Bands #) 5.3 1.5-8.1 N [facility] StationJgbnezhKEBQSPNCHG3125-61-43 10:28:00 Test Item Value Reference Range Interpretation Comments Lymphocytes # (test code = Lymphocytes 1.3 1.0-5.5 N #) [facility] StationBmerhwiTBQCMSJBWO1700-34-01 10:28:00 Test Item Value Reference Range Interpretation Comments Basophils (test code = 0.5 See_Comment N [Aut omated message] The Basophils) system which ge nerated this result tra nsmitted reference range : <=1.0. The reference r leo was not used to int erpret this result as normal/abnormal . [facility] StationEsdmhtgLVDMWVBMQA1261-81-77 10:28:00 Test Item Value Reference Range Interpretation Comments Monocytes (test code = Monocytes) 8.5 2.0-12.0 N [facility] StationCcknrauDHAECMAHFT6464-11-85 10:28:00 Test Item Value Reference Range Interpretation Comments Eosinophils (test code = 0.3 See_Comment N [A utomated message] The Eosinophils) system which ge nerated this result tra nsmitted reference range : <=4.0. The reference r leo was not used to int erpret this result as normal/abnormal . [facility] StationYcskvaeDKRNYBRVWH2481-78-09 10:28:00 Test Item Value Reference Range Interpretation Comments Lymphocytes (test code = Lymphocytes) 17.3 20.0-40.0 L [facility] StationLgzkzapXTOHMPPUIW9848-01-46 10:28:00 Test Item Value Reference Range Interpretation Comments Segs (test code = Segs) 73.4 45.0-75.0 N [facility] HospitalBcnlzdmMSNQDLVTI6511-63-83 10:28:00 Test Item Value Reference Range Interpretation Comments Phosphorus (test code = Phosphorus) 2.6 2.5-4.5 N [facility]NdwpjfjLBWGHVPGN3667-04-09 10:28:00 Test Item Value Reference Range Interpretation Comments Magnesium Lvl (test code = Magnesium 1.8 1.8-2.4 N Lvl) [facility]BddkevmZLWJJQJYF2300-48-46 10:28:00 Test Item Value Reference Range Interpretation Comments Potassium Lvl (test code = Potassium 3.7 3.5-5.1 N Lvl) [facility] HospitalEcpysufSNVHMZYRE4451-75-71 10:28:00 Test Item Value Reference Range Interpretation Comments Sodium Lvl (test code = Sodium Lvl) 137 135-145 N [facility] HospitalYlwnvueFNQCXYBQA6869-89-18 10:28:00 Test Item Value Reference Range Interpretation Comments Creatinine Lvl (test code = Creatinine 0.6 0.5-1.4 N Lvl) [facility] HospitalAxgicvbGENNDRJWU6058-71-31 10:28:00 Test Item Value Reference Range Interpretation Comments BUN (test code = BUN) 16 7-22 N [facility] HospitalLywrqtmDNCDPQEON3928-24-46 10:28:00 Test Item Value Reference Range Interpretation Comments Glucose Lvl (test code = Glucose Lvl) 200 [facility] HospitalPcfnvrtCYSSMUAAH4474-73-67 10:28:00 Test Item Value Reference Range Interpretation Comments Calcium Lvl (test code = Calcium Lvl) 8.3 8.5-10.5 L [facility] HospitalWutgzqlNQXEBPMMN5553-42-23 10:28:00 Test Item Value Reference Range Interpretation Comments AGAP (test code = AGAP) 19.7 10.0-20.0 N [facility] HospitalJxoaqyfNFUFEYLRY4698-27-72 10:28:00 Test Item Value Reference Range Interpretation Comments Chloride Lvl (test code = Chloride Lvl) 99 95-109 N [facility] HospitalBwmhhoiRBLYYKRUP7840-21-12 10:28:00 Test Item Value Reference Range Interpretation Comments CO2 (test code = CO2) 22 24-32 L [facility] StationCcfgllhLYQAWHZVCP0393-67-49 10:28:00 Test Item Value Reference Range Interpretation Comments Platelet (test code = Platelet) 172 133-450 N [facility] StationGlruinrXZNSGZJZBK5767-49-82 10:28:00 Test Item Value Reference Range Interpretation Comments MPV (test code = MPV) 12.0 7.4-10.4 H [facility] StationOrovkgtZKZWJYINFB2394-92-14 10:28:00 Test Item Value Reference Range Interpretation Comments WBC (test code = WBC) 7.3 3.7-10.4 N [facility] StationGgzydrrZDFXMUEXBR7090-45-47 10:28:00 Test Item Value Reference Range Interpretation Comments RDW (test code = RDW) 14.6 11.5-14.5 H [facility] StationUvvhfkvVPKSGGEJZV5411-16-94 10:28:00 Test Item Value Reference Range Interpretation Comments MCHC (test code = MCHC) 35.0 32.0-36.0 N [facility] StationGvochntMUNPVOQYNY1211-95-98 10:28:00 Test Item Value Reference Range Interpretation Comments RBC (test code = RBC) 4.54 4.20-5.40 N [facility] StationBoysmwcMNWWFAHYOR6565-64-93 10:28:00 Test Item Value Reference Range Interpretation Comments Hct (test code = Hct) 37.6 36.0-48.0 N [facility] StationTmzhlmfBQREPDGEWA4797-36-07 10:28:00 Test Item Value Reference Range Interpretation Comments MCV (test code = MCV) 82.9 81.0-99.0 N [facility] StationKfddkqsHUTITAXHGP7291-81-50 10:28:00 Test Item Value Reference Range Interpretation Comments MCH (test code = MCH) 29.0 pg 27.0-31.0 N [facility] StationMkzsfliPZZVUWPKDT4040-57-12 10:28:00 Test Item Value Reference Range Interpretation Comments Hgb (test code = Hgb) 13.2 12.0-16.0 N [facility] StationSlnrqbfSMIFYRFIIG3217-90-25 10:28:00 Test Item Value Reference Range Interpretation Comments Elliptocyte (test code = Slight A Elliptocyte) *ABN*(08/21/2011 04:28:00) [facility] StationAzpkbjjVXVVHWEHLQ7909-00-73 10:28:00 Test Item Value Reference Range Interpretation Comments Polychrom (test code = Slight (08/21/2011 N Polychrom) 04:28:00) [facility] StationTferfbsWPVPAPPOZL4539-69-17 10:28:00 Test Item Value Reference Range Interpretation Comments Basophils # (test code 0.0 See_Comment N [Aut omated message] The = Basophils #) system which generated this result tra nsmitted reference range : <=0.2. The reference r leo was not used to int erpret this result as normal/abnormal . [facility] StationVvrihbzGYTYLATAIW1987-66-35 10:28:00 Test Item Value Reference Range Interpretation Comments Hypochrom (test code = Slight (08/21/2011 N Hypochrom) 04:28:00) [facility] StationVxxwawqOSPGJNLLTL3808-18-78 10:28:00 Test Item Value Reference Range Interpretation Comments Monocytes # (test code 0.6 See_Comment N [Aut omated message] The = Monocytes #) system which generated this result tra nsmitted reference range : <=0.8. The reference r leo was not used to int erpret this result as normal/abnormal . [facility] StationIqfhrheQPHFYCBPCV5318-13-30 10:28:00 Test Item Value Reference Range Interpretation Comments Eosinophils # (test code 0.0 See_Comment N [A utomated message] The = Eosinophils #) system whic h generated this result tra nsmitted reference range : <=0.5. The reference r leo was not used to int erpret this result as normal/abnormal . [facility] StationWclajqhGFLKBSJXVH0725-87-86 10:28:00 Test Item Value Reference Range Interpretation Comments Segs-Bands # (test code = Segs-Bands #) 5.3 1.5-8.1 N [facility] StationAzbuhsxFOEGHVCCJA0375-26-18 10:28:00 Test Item Value Reference Range Interpretation Comments Lymphocytes # (test code = Lymphocytes 1.3 1.0-5.5 N #) [facility] StationSerdpdaKTBXMXNAQZ4060-62-08 10:28:00 Test Item Value Reference Range Interpretation Comments Basophils (test code = 0.5 See_Comment N [Aut omated message] The Basophils) system which ge nerated this result tra nsmitted reference range : <=1.0. The reference r leo was not used to int erpret this result as normal/abnormal . [facility] StationWedcmulGUWFUFLKEL2197-82-90 10:28:00 Test Item Value Reference Range Interpretation Comments Monocytes (test code = Monocytes) 8.5 2.0-12.0 N [facility] StationCzpxzruAHTEMPUDPV1226-40-96 10:28:00 Test Item Value Reference Range Interpretation Comments Eosinophils (test code = 0.3 See_Comment N [A utomated message] The Eosinophils) system which ge nerated this result tra nsmitted reference range : <=4.0. The reference r leo was not used to int erpret this result as normal/abnormal . [facility] StationKujqxqwYBWVVQEQDY8904-23-96 10:28:00 Test Item Value Reference Range Interpretation Comments Lymphocytes (test code = Lymphocytes) 17.3 20.0-40.0 L [facility] StationLufiigaENRFZPZDXC6245-29-74 10:28:00 Test Item Value Reference Range Interpretation Comments Segs (test code = Segs) 73.4 45.0-75.0 N [facility] GLUCOSE UGSTBFC4284-36-02 07:47:00 Test Item Value Reference Range Interpretation Comments Comment2 (test code = Comment2) Verify w/Lab [facility] GLUCOSE WJNKWSB3390-11-12 07:47:00 Test Item Value Reference Range Interpretation Comments Comment2 (test code = Comment2) Verify w/Lab [facility] GLUCOSE GJWGFHG6673-53-74 07:47:00 Test Item Value Reference Range Interpretation Comments Comment2 (test code = Comment2) Verify w/Lab [facility] GLUCOSE UWURDYK2354-43-28 07:47:00 Test Item Value Reference Range Interpretation Comments Comment2 (test code = Comment2) Verify w/Lab [facility] GLUCOSE NHJGOWI3708-47-97 07:47:00 Test Item Value Reference Range Interpretation Comments Comment2 (test code = Comment2) [facility] w/Lab [facility]XvtxdffFQNDKVNNH8953-85-43 21:58:00 Test Item Value Reference Range Interpretation Comments S Preg (test code = S Negative (08/19/2011 N Preg) 15:58:00) [facility] HospitalAartpshTIBHGOGFO6263-20-57 21:58:00 Test Item Value Reference Range Interpretation Comments Lipase Lvl (test code = Lipase Lvl) 169 73-393 N [facility]XnfkhrnHFWDEQLCV6899-28-06 21:58:00 Test Item Value Reference Range Interpretation Comments ALT (test code = ALT) 54 See_Comment N [Auto mated message] The system which ge nerated this result transmit rohit reference range : <=65. The reference range was not used to interpr et this result as reji l/abnormal. [facility] HospitalEtphpjeRWTBJVVHN3575-55-72 21:58:00 Test Item Value Reference Range Interpretation Comments Alk Phos (test code = Alk Phos) 110 39-136 N [facility] HospitalNhgjgqnISEBNQDLA1368-46-67 21:58:00 Test Item Value Reference Range Interpretation Comments Bili Direct (test code 0.1 See_Comment N [Aut omated message] The = Bili Direct) system which generated this result tra nsmitted reference range : <=0.3. The reference r leo was not used to int erpret this result as reji l/abnormal. [facility] HospitalZfhihpvQGLJUYXZG3379-38-50 21:58:00 Test Item Value Reference Range Interpretation Comments Bili Total (test code = Bili Total) 0.9 0.2-1.3 N [facility] HospitalXaibbovSFFCTLQUO5852-79-58 21:58:00 Test Item Value Reference Range Interpretation Comments Albumin Lvl (test code = Albumin Lvl) 4.4 3.5-5.0 N [facility] HospitalNmmvdlzOLIGTJNBK9435-48-50 21:58:00 Test Item Value Reference Range Interpretation Comments Total Protein (test code = Total 8.8 6.4-8.4 H Protein) [facility] HospitalGpzcjppZDIADLIID6709-93-13 21:58:00 Test Item Value Reference Range Interpretation Comments Bili Indirect (test 0.8 See_Comment N [Automa rohit message] The code = Bili Indirect) system which generated this result tra nsmitted reference range : <=1.0. The reference r leo was not used to int erpret this result as normal/abnormal . [facility] HospitalDvzboypLCQRABPQA9252-64-87 21:58:00 Test Item Value Reference Range Interpretation Comments AST (test code = AST) 36 See_Comment N [Auto mated message] The system which ge nerated this result transmit rohit reference range : <=37. The reference range was not used to interpr et this result as reji l/abnormal. [facility] HospitalMowomxcFUXYWTZMS0685-99-82 21:58:00 Test Item Value Reference Range Interpretation Comments Globulin (test code = Globulin) 4.4 2.0-4.0 H [facility] HospitalAbwcrfnJCHSHLUWV5784-51-08 21:58:00 Test Item Value Reference Range Interpretation Comments A/G Ratio (test code = A/G Ratio) 1.0 0.7-1.6 N [facility] AreaXuhjiqbGZEXBVLZTT5508-10-18 21:58:00 Test Item Value Reference Range Interpretation Comments UA Bacteria (test code Occasional /HPF N = UA Bacteria) (08/19/2011 15:58:00) [facility] AreaBiekvrkWWNSHQFUWN1658-67-59 21:58:00 Test Item Value Reference Range Interpretation Comments UA RBC (test 3-5 /HPF See_Comment A [Automated mes pastor] code = UA RBC) *ABN*(08/19/2011 The syste m which 15:58:00) generated this result transmitted ref erence range: <=2. The reference range was not used to int erpret this result as normal/abnormal . [facility]burgGwlrkynJBQIUVRXEK2406-51-42 21:58:00 Test Item Value Reference Range Interpretation Comments UA WBC (test code = 3 See_Comment [Automa rohit message] The UA WBC) system which ge nerated this result transmit rohit reference range : <=5. The reference range was not used to interpr et this result as reji l/abnormal. [facility]LxdmhsvDPGRYEAUHE4435-70-74 21:58:00 Test Item Value Reference Range Interpretation Comments UA Mucus (test code = Few /LPF (08/19/2011 N UA Mucus) 15:58:00) [facility] HospitalVzhuzdxOHPCAYPXLF0307-90-91 21:58:00 Test Item Value Reference Range Interpretation Comments UA Amorph Destiny (test Occasional /HPF A code = UA Amorph *ABN*(08/19/2011 Destiny) 15:58:00) [facility] HospitalAgjbqduNAQRTPUTLW2139-49-93 21:58:00 Test Item Value Reference Range Interpretation Comments UA Urobilinogen (test code = UA 0.2 0.1-1.0 N Urobilinogen) [facility] HospitalCztglskCVQNNBTXGR6436-76-19 21:58:00 Test Item Value Reference Range Interpretation Comments UA Sq Epi (test code = Rare /LPF (08/19/2011 N UA Sq Epi) 15:58:00) [facility] HospitalVmobfxwBFTDVHXQUK2929-06-01 21:58:00 Test Item Value Reference Range Interpretation Comments Micro? (test code = Performed (08/19/2011 N Micro?) 15:58:00) [facility]burgWqeducwAJWQQNICJD5831-72-68 21:58:00 Test Item Value Reference Range Interpretation Comments UA Leuk Est (test Negative (08/19/2011 N code = UA Leuk Est) 15:58:00) [facility]burgEabviexWMIQQNPNGG1950-41-57 21:58:00 Test Item Value Reference Range Interpretation Comments UA Nitrite (test code Negative (08/19/2011 N = UA Nitrite) 15:58:00) [facility] HospitalYexmmpgWVFIFOYRKG9444-42-25 21:58:00 Test Item Value Reference Range Interpretation Comments UA pH (test code = UA pH) 5.5 1 5.0-8.0 N [facility]burgFgipfukUIEUVXPUDO9037-71-03 21:58:00 Test Item Value Reference Range Interpretation Comments UA Blood (test code = Trace *ABN*(08/19/2011 A UA Blood) 15:58:00) [facility] HospitalAfyruauSLRTETOZWN2331-95-89 21:58:00 Test Item Value Reference Range Interpretation Comments UA Bili (test code = Negative (08/19/2011 N UA Bili) 15:58:00) [facility] HospitalPggolbwPYEQHYTPLO6131-96-78 21:58:00 Test Item Value Reference Range Interpretation Comments UA Ketones (test code = 80 mg/dL A UA Ketones) *ABN*(08/19/2011 15:58:00) [facility] AreaYahuyybBCEMMOBMCA9359-12-15 21:58:00 Test Item Value Reference Range Interpretation Comments UA Glucose (test code = >=1000 mg/dL A UA Glucose) *ABN*(08/19/2011 15:58:00) [facility] AreaUbxcvjyUCJEJBMNTA7650-86-11 21:58:00 Test Item Value Reference Range Interpretation Comments UA Protein (test code Negative (08/19/2011 N = UA Protein) 15:58:00) [facility] AreaSywdnnxKSBWESCQVB7301-55-84 21:58:00 Test Item Value Reference Range Interpretation Comments UA Turbidity (test code Slight Cloudy N = UA Turbidity) (08/19/2011 15:58:00) [facility] AreaNzsxytvZAQWGOAWXK5356-10-00 21:58:00 Test Item Value Reference Range Interpretation Comments UA Spec Grav (test code = UA Spec 1.025 1 Grav) [facility] HospitalUnnyfjwSIMCCQSYTV3644-77-40 21:58:00 Test Item Value Reference Range Interpretation Comments UA Color (test code = Yellow (08/19/2011 N UA Color) 15:58:00) [facility] HospitalDrzqtcxALLRBUXYY0648-56-40 21:58:00 Test Item Value Reference Range Interpretation Comments S Preg (test code = S Negative (08/19/2011 N Preg) 15:58:00) [facility] HospitalZtkrsitJJPSDWWLI4573-83-31 21:58:00 Test Item Value Reference Range Interpretation Comments Lipase Lvl (test code = Lipase Lvl) 169 73-393 N [facility] HospitalTubnwtzSYPZEOYHZ7279-08-28 21:58:00 Test Item Value Reference Range Interpretation Comments ALT (test code = ALT) 54 See_Comment N [Auto mated message] The system which ge nerated this result transmit rohit reference range : <=65. The reference range was not used to interpr et this result as reji l/abnormal. [facility] HospitalLlwejmxKUJSWTJHK0753-40-56 21:58:00 Test Item Value Reference Range Interpretation Comments Alk Phos (test code = Alk Phos) 110 39-136 N [facility] HospitalSkfuhtlHRUSGGWUU5911-56-96 21:58:00 Test Item Value Reference Range Interpretation Comments Bili Direct (test code 0.1 See_Comment N [Aut omated message] The = Bili Direct) system which generated this result tra nsmitted reference range : <=0.3. The reference r leo was not used to int erpret this result as reji l/abnormal. [facility] HospitalTcsivjpOAKZCYKRX2865-58-82 21:58:00 Test Item Value Reference Range Interpretation Comments Bili Total (test code = Bili Total) 0.9 0.2-1.3 N [facility] HospitalUgrojsgWOZEGHNPX6930-45-11 21:58:00 Test Item Value Reference Range Interpretation Comments Albumin Lvl (test code = Albumin Lvl) 4.4 3.5-5.0 N [facility] HospitalOiqkczdWBXFQBRKN4981-24-41 21:58:00 Test Item Value Reference Range Interpretation Comments Total Protein (test code = Total 8.8 6.4-8.4 H Protein) [facility] HospitalKamcnjlBDBEXZHUY9616-19-26 21:58:00 Test Item Value Reference Range Interpretation Comments Bili Indirect (test 0.8 See_Comment N [Automa rohit message] The code = Bili Indirect) system which generated this result tra nsmitted reference range : <=1.0. The reference r leo was not used to int erpret this result as normal/abnormal . [facility] HospitalLabefhzANIQJXNCK2020-50-46 21:58:00 Test Item Value Reference Range Interpretation Comments AST (test code = AST) 36 See_Comment N [Auto mated message] The system which ge nerated this result transmit rohit reference range : <=37. The reference range was not used to interpr et this result as reji l/abnormal. [facility] HospitalYdjukhbRDFNLJNAQ1296-46-20 21:58:00 Test Item Value Reference Range Interpretation Comments Globulin (test code = Globulin) 4.4 2.0-4.0 H [facility]burgIazcnneXGTRRTAOX1123-49-39 21:58:00 Test Item Value Reference Range Interpretation Comments A/G Ratio (test code = A/G Ratio) 1.0 0.7-1.6 N [facility]burgScstnxkCAAQQCSNXI0774-37-52 21:58:00 Test Item Value Reference Range Interpretation Comments UA Bacteria (test code Occasional /HPF N = UA Bacteria) (08/19/2011 15:58:00) [facility]burgKxcawrnMWZQFMNFEE0142-72-76 21:58:00 Test Item Value Reference Range Interpretation Comments UA RBC (test 3-5 /HPF See_Comment A [Automated mes pastor] code = UA RBC) *ABN*(08/19/2011 The syste m which 15:58:00) generated this result transmitted ref erence range: <=2. The reference range was not used to int erpret this result as normal/abnormal . [facility] HospitalMhpwfulEMNOQODWTZ8139-33-63 21:58:00 Test Item Value Reference Range Interpretation Comments UA WBC (test code = 3 See_Comment [Automa rohit message] The UA WBC) system which ge nerated this result transmit rohit reference range : <=5. The reference range was not used to interpr et this result as reji l/abnormal. [facility]burgLilcdyjGNHGHIBPCW7070-66-16 21:58:00 Test Item Value Reference Range Interpretation Comments UA Mucus (test code = Few /LPF (08/19/2011 N UA Mucus) 15:58:00) [facility]burgMgyulxlYIYGAHOCTJ4029-69-43 21:58:00 Test Item Value Reference Range Interpretation Comments UA Amorph Destiny (test Occasional /HPF A code = UA Amorph *ABN*(08/19/2011 Destiny) 15:58:00) [facility]burgVssupotJTAPQNAVLM4545-32-15 21:58:00 Test Item Value Reference Range Interpretation Comments UA Urobilinogen (test code = UA 0.2 0.1-1.0 N Urobilinogen) [facility]burgQoqhpejGFRXAKCYVB5230-91-43 21:58:00 Test Item Value Reference Range Interpretation Comments UA Sq Epi (test code = Rare /LPF (08/19/2011 N UA Sq Epi) 15:58:00) [facility]burgMamgqxyXRHZMRDJUT0644-80-60 21:58:00 Test Item Value Reference Range Interpretation Comments Micro? (test code = Performed (08/19/2011 N Micro?) 15:58:00) [facility] AreaSfxegelNUMLHQBFYS1809-79-21 21:58:00 Test Item Value Reference Range Interpretation Comments UA Leuk Est (test Negative (08/19/2011 N code = UA Leuk Est) 15:58:00) [facility] AreaBguspmvOSIYPBEMYK3128-62-37 21:58:00 Test Item Value Reference Range Interpretation Comments UA Nitrite (test code Negative (08/19/2011 N = UA Nitrite) 15:58:00) [facility] AreaOgivrxhQXYYWGFLHP9199-18-05 21:58:00 Test Item Value Reference Range Interpretation Comments UA pH (test code = UA pH) 5.5 1 5.0-8.0 N [facility] AreaAfxlenpGQLCGHDKVP2246-03-83 21:58:00 Test Item Value Reference Range Interpretation Comments UA Blood (test code = Trace *ABN*(08/19/2011 A UA Blood) 15:58:00) [facility] AreaGvjqzqhYUSFKCXOZC9523-87-79 21:58:00 Test Item Value Reference Range Interpretation Comments UA Bili (test code = Negative (08/19/2011 N UA Bili) 15:58:00) [facility] AreaMwpxowkMVGVJTBOCB6632-50-34 21:58:00 Test Item Value Reference Range Interpretation Comments UA Ketones (test code = 80 mg/dL A UA Ketones) *ABN*(08/19/2011 15:58:00) [facility] AreaMqkqbxsWUTGBILSWR4412-39-41 21:58:00 Test Item Value Reference Range Interpretation Comments UA Glucose (test code = >=1000 mg/dL A UA Glucose) *ABN*(08/19/2011 15:58:00) [facility] AreaRcpzqflJYVQMYAOSB3152-26-58 21:58:00 Test Item Value Reference Range Interpretation Comments UA Protein (test code Negative (08/19/2011 N = UA Protein) 15:58:00) [facility] AreaUikcughZYTAVCUSGA6272-90-20 21:58:00 Test Item Value Reference Range Interpretation Comments UA Turbidity (test code Slight Cloudy N = UA Turbidity) (08/19/2011 15:58:00) [facility] AreaYegonujISPGIXJSFF1419-52-47 21:58:00 Test Item Value Reference Range Interpretation Comments UA Spec Grav (test code = UA Spec 1.025 1 Grav) [facility]burgTwnqjroKWZGKJCHCS9164-35-10 21:58:00 Test Item Value Reference Range Interpretation Comments UA Color (test code = Yellow (08/19/2011 N UA Color) 15:58:00) [facility] HospitalBvyvpplMDSEXJPJV4973-02-02 21:58:00 Test Item Value Reference Range Interpretation Comments S Preg (test code = S Negative (08/19/2011 N Preg) 15:58:00) [facility] HospitalQwhritgKMIMGBFUF5746-57-57 21:58:00 Test Item Value Reference Range Interpretation Comments Lipase Lvl (test code = Lipase Lvl) 169 73-393 N [facility] HospitalVwnervoBQYZXHKVP1563-29-32 21:58:00 Test Item Value Reference Range Interpretation Comments ALT (test code = ALT) 54 See_Comment N [Auto mated message] The system which ge nerated this result transmit rohit reference range : <=65. The reference range was not used to interpr et this result as reji l/abnormal. [facility] HospitalGmkwhdeZCVYJZXLJ2387-36-52 21:58:00 Test Item Value Reference Range Interpretation Comments Alk Phos (test code = Alk Phos) 110 39-136 N [facility] HospitalUywcaboVGFIOTRXD0420-19-70 21:58:00 Test Item Value Reference Range Interpretation Comments Bili Direct (test code 0.1 See_Comment N [Aut omated message] The = Bili Direct) system which generated this result tra nsmitted reference range : <=0.3. The reference r leo was not used to int erpret this result as reji l/abnormal. [facility] HospitalSkftsfrVISVLUJEM6954-58-29 21:58:00 Test Item Value Reference Range Interpretation Comments Bili Total (test code = Bili Total) 0.9 0.2-1.3 N [facility] HospitalJatohloEOXSTJCCJ1785-01-65 21:58:00 Test Item Value Reference Range Interpretation Comments Albumin Lvl (test code = Albumin Lvl) 4.4 3.5-5.0 N [facility] HospitalBlnkfljOVPRMWWZD5708-34-70 21:58:00 Test Item Value Reference Range Interpretation Comments Total Protein (test code = Total 8.8 6.4-8.4 H Protein) [facility] HospitalIhdefbxQBMBLLABH5869-82-72 21:58:00 Test Item Value Reference Range Interpretation Comments Bili Indirect (test 0.8 See_Comment N [Automa rohit message] The code = Bili Indirect) system which generated this result tra nsmitted reference range : <=1.0. The reference r leo was not used to int erpret this result as normal/abnormal . [facility]landDrgfuvpSSVASCJNE0558-67-85 21:58:00 Test Item Value Reference Range Interpretation Comments AST (test code = AST) 36 See_Comment N [Auto mated message] The system which ge nerated this result transmit rohit reference range : <=37. The reference range was not used to interpr et this result as reji l/abnormal. [facility]SwxvpwjYODBTNUTL6241-53-65 21:58:00 Test Item Value Reference Range Interpretation Comments Globulin (test code = Globulin) 4.4 2.0-4.0 H [facility]landJayllcnNYYZWGOPJ6443-68-44 21:58:00 Test Item Value Reference Range Interpretation Comments A/G Ratio (test code = A/G Ratio) 1.0 0.7-1.6 N [facility]landJlzpccuZHVZSUGNBS7951-23-97 21:58:00 Test Item Value Reference Range Interpretation Comments UA Bacteria (test code Occasional /HPF N = UA Bacteria) (08/19/2011 15:58:00) [facility]landFzerlvoXPVTDDVFJQ8870-25-15 21:58:00 Test Item Value Reference Range Interpretation Comments UA RBC (test 3-5 /HPF See_Comment A [Automated mes pastor] code = UA RBC) *ABN*(08/19/2011 The syste m which 15:58:00) generated this result transmitted ref erence range: <=2. The reference range was not used to int erpret this result as normal/abnormal . [facility]landNsgiifkOPYEWKDFXS3225-28-96 21:58:00 Test Item Value Reference Range Interpretation Comments UA WBC (test code = 3 See_Comment [Automa rohit message] The UA WBC) system which ge nerated this result transmit rohit reference range : <=5. The reference range was not used to interpr et this result as reji l/abnormal. [facility]landFgpkoqiTDYSIEJYQS3374-38-02 21:58:00 Test Item Value Reference Range Interpretation Comments UA Mucus (test code = Few /LPF (08/19/2011 N UA Mucus) 15:58:00) [facility]KucwtruRNTSLMUJJK0294-61-86 21:58:00 Test Item Value Reference Range Interpretation Comments UA Amorph Destiny (test Occasional /HPF A code = UA Amorph *ABN*(08/19/2011 Destiny) 15:58:00) [facility] AreaUvkhwuoMMQEQULSPT4044-48-13 21:58:00 Test Item Value Reference Range Interpretation Comments UA Urobilinogen (test code = UA 0.2 0.1-1.0 N Urobilinogen) [facility] AreaSaczouxDWHWKOAPKA0094-70-79 21:58:00 Test Item Value Reference Range Interpretation Comments UA Sq Epi (test code = Rare /LPF (08/19/2011 N UA Sq Epi) 15:58:00) [facility] AreaSbxkpioLATKLVBQTK2365-86-01 21:58:00 Test Item Value Reference Range Interpretation Comments Micro? (test code = Performed (08/19/2011 N Micro?) 15:58:00) [facility] AreaXioaykmYLKOOULQSR1909-11-13 21:58:00 Test Item Value Reference Range Interpretation Comments UA Leuk Est (test Negative (08/19/2011 N code = UA Leuk Est) 15:58:00) [facility]rm[facility]zfQYAUDAJVYT9980-84-01 21:58:00 Test Item Value Reference Range Interpretation Comments UA Nitrite (test code Negative (08/19/2011 N = UA Nitrite) 15:58:00) [facility] AreaBvenfmwRYUDGHBJJI9348-67-58 21:58:00 Test Item Value Reference Range Interpretation Comments UA pH (test code = UA pH) 5.5 1 5.0-8.0 N [facility] HospitalVjemjpqNEHSKVDAZT0210-41-11 21:58:00 Test Item Value Reference Range Interpretation Comments UA Blood (test code = Trace *ABN*(08/19/2011 A UA Blood) 15:58:00) [facility]burgMjnmygzOLXSCAVIVE9995-66-01 21:58:00 Test Item Value Reference Range Interpretation Comments UA Bili (test code = Negative (08/19/2011 N UA Bili) 15:58:00) [facility] HospitalZiixnzqQIZXTRFUII8170-03-36 21:58:00 Test Item Value Reference Range Interpretation Comments UA Ketones (test code = 80 mg/dL A UA Ketones) *ABN*(08/19/2011 15:58:00) [facility] AreaRotnybqKPSGVFEBUH5760-57-79 21:58:00 Test Item Value Reference Range Interpretation Comments UA Glucose (test code = >=1000 mg/dL A UA Glucose) *ABN*(08/19/2011 15:58:00) [facility] AreaDvjbgcvCJALZCWPGX6977-82-41 21:58:00 Test Item Value Reference Range Interpretation Comments UA Protein (test code Negative (08/19/2011 N = UA Protein) 15:58:00) [facility] AreaWstacjeJRDCFGYTVZ3926-81-39 21:58:00 Test Item Value Reference Range Interpretation Comments UA Turbidity (test code Slight Cloudy N = UA Turbidity) (08/19/2011 15:58:00) [facility] AreaTvrsixrJDYSYXYFGM9966-23-15 21:58:00 Test Item Value Reference Range Interpretation Comments UA Spec Grav (test code = UA Spec 1.025 1 Grav) [facility] AreaNblwgwcUPPMYGZZOP6270-67-38 21:58:00 Test Item Value Reference Range Interpretation Comments UA Color (test code = Yellow (08/19/2011 N UA Color) 15:58:00) [facility]EzdgcbqOAMULLKPH4745-91-88 21:58:00 Test Item Value Reference Range Interpretation Comments S Preg (test code = S Negative (08/19/2011 N Preg) 15:58:00) [facility] HospitalHuygaayLCHWCIHDL9530-49-47 21:58:00 Test Item Value Reference Range Interpretation Comments Lipase Lvl (test code = Lipase Lvl) 169 73-393 N [facility] HospitalSesggmmZDUAAZPDU0289-12-24 21:58:00 Test Item Value Reference Range Interpretation Comments ALT (test code = ALT) 54 See_Comment N [Auto mated message] The system which ge nerated this result transmit rohit reference range : <=65. The reference range was not used to interpr et this result as reji l/abnormal. [facility] HospitalRnwbohnFIOGCWIVV1557-57-08 21:58:00 Test Item Value Reference Range Interpretation Comments Alk Phos (test code = Alk Phos) 110 39-136 N [facility] HospitalSxtsmnmCLFDMZNHB8994-82-42 21:58:00 Test Item Value Reference Range Interpretation Comments Bili Direct (test code 0.1 See_Comment N [Aut omated message] The = Bili Direct) system which generated this result tra nsmitted reference range : <=0.3. The reference r leo was not used to int erpret this result as reji l/abnormal. [facility] HospitalWvdjogpYCHFRHANN6492-97-68 21:58:00 Test Item Value Reference Range Interpretation Comments Bili Total (test code = Bili Total) 0.9 0.2-1.3 N [facility] HospitalBbhpjhpXPPKJRTZB9155-89-56 21:58:00 Test Item Value Reference Range Interpretation Comments Albumin Lvl (test code = Albumin Lvl) 4.4 3.5-5.0 N [facility] HospitalHjqwvyvRIHVAJMFB4171-56-00 21:58:00 Test Item Value Reference Range Interpretation Comments Total Protein (test code = Total 8.8 6.4-8.4 H Protein) [facility] HospitalGheyuurSQRZRHGXM0710-41-98 21:58:00 Test Item Value Reference Range Interpretation Comments Bili Indirect (test 0.8 See_Comment N [Automa rohit message] The code = Bili Indirect) system which generated this result tra nsmitted reference range : <=1.0. The reference r leo was not used to int erpret this result as normal/abnormal . [facility] HospitalRfqmptmCWBNYHWTB8681-24-71 21:58:00 Test Item Value Reference Range Interpretation Comments AST (test code = AST) 36 See_Comment N [Auto mated message] The system which ge nerated this result transmit rohit reference range : <=37. The reference range was not used to interpr et this result as reji l/abnormal. [facility] HospitalWiyfxzfTJMCUJXSJ4674-62-58 21:58:00 Test Item Value Reference Range Interpretation Comments Globulin (test code = Globulin) 4.4 2.0-4.0 H [facility] HospitalFjgcjayELECZNLGF4642-12-76 21:58:00 Test Item Value Reference Range Interpretation Comments A/G Ratio (test code = A/G Ratio) 1.0 0.7-1.6 N [facility] HospitalDkdecuxLVYHRDRMHL9621-84-92 21:58:00 Test Item Value Reference Range Interpretation Comments UA Bacteria (test code Occasional /HPF N = UA Bacteria) (08/19/2011 15:58:00) [facility] HospitalPxntevyXWVQMLBIXV2165-73-37 21:58:00 Test Item Value Reference Range Interpretation Comments UA RBC (test 3-5 /HPF See_Comment A [Automated mes pastor] code = UA RBC) *ABN*(08/19/2011 The syste m which 15:58:00) generated this result transmitted ref erence range: <=2. The reference range was not used to int erpret this result as normal/abnormal . [facility] HospitalCpuayxzZYROJSFYER7682-75-73 21:58:00 Test Item Value Reference Range Interpretation Comments UA WBC (test code = 3 See_Comment [Automa rohit message] The UA WBC) system which ge nerated this result transmit rohit reference range : <=5. The reference range was not used to interpr et this result as reji l/abnormal. [facility] HospitalLbwxkjnWZISFFMFDR9033-97-96 21:58:00 Test Item Value Reference Range Interpretation Comments UA Mucus (test code = Few /LPF (08/19/2011 N UA Mucus) 15:58:00) [facility] HospitalEtnfnffRUBHXTCNEH9171-99-13 21:58:00 Test Item Value Reference Range Interpretation Comments UA Amorph Destiny (test Occasional /HPF A code = UA Amorph *ABN*(08/19/2011 Destiny) 15:58:00) [facility] HospitalIuokagbWFNBIDGYAF7246-21-61 21:58:00 Test Item Value Reference Range Interpretation Comments UA Urobilinogen (test code = UA 0.2 0.1-1.0 N Urobilinogen) [facility] HospitalZwfzpxhMJQRMEIZRX4665-64-55 21:58:00 Test Item Value Reference Range Interpretation Comments UA Sq Epi (test code = Rare /LPF (08/19/2011 N UA Sq Epi) 15:58:00) [facility] HospitalJbemfbsPNSSBXRXWT8345-20-24 21:58:00 Test Item Value Reference Range Interpretation Comments Micro? (test code = Performed (08/19/2011 N Micro?) 15:58:00) [facility] HospitalWkadmovTJQUMSTSZT7044-13-21 21:58:00 Test Item Value Reference Range Interpretation Comments UA Leuk Est (test Negative (08/19/2011 N code = UA Leuk Est) 15:58:00) [facility] HospitalNsedeomRDXLSEQNUU4354-76-71 21:58:00 Test Item Value Reference Range Interpretation Comments UA Nitrite (test code Negative (08/19/2011 N = UA Nitrite) 15:58:00) [facility] HospitalTsbflvkRSCVCSZIVD5533-79-55 21:58:00 Test Item Value Reference Range Interpretation Comments UA pH (test code = UA pH) 5.5 1 5.0-8.0 N [facility] AreaUgecnyaGNRDOSQZGI2528-30-84 21:58:00 Test Item Value Reference Range Interpretation Comments UA Blood (test code = Trace *ABN*(08/19/2011 A UA Blood) 15:58:00) [facility] AreaGmdqjggGNDQXFRJBC8525-12-43 21:58:00 Test Item Value Reference Range Interpretation Comments UA Bili (test code = Negative (08/19/2011 N UA Bili) 15:58:00) [facility] AreaQydzbboGOZLDIYVLX9899-07-63 21:58:00 Test Item Value Reference Range Interpretation Comments UA Ketones (test code = 80 mg/dL A UA Ketones) *ABN*(08/19/2011 15:58:00) [facility] AreaHsckfplTSIJNMFNYL1660-13-77 21:58:00 Test Item Value Reference Range Interpretation Comments UA Glucose (test code = >=1000 mg/dL A UA Glucose) *ABN*(08/19/2011 15:58:00) [facility] AreaCghfncvHBPWPAAOOW9122-53-75 21:58:00 Test Item Value Reference Range Interpretation Comments UA Protein (test code Negative (08/19/2011 N = UA Protein) 15:58:00) [facility] AreaNpzudzfJYWQPGWZOT4386-53-18 21:58:00 Test Item Value Reference Range Interpretation Comments UA Turbidity (test code Slight Cloudy N = UA Turbidity) (08/19/2011 15:58:00) [facility] AreaXezfjicTGIVCQAYQI3699-55-86 21:58:00 Test Item Value Reference Range Interpretation Comments UA Spec Grav (test code = UA Spec 1.025 1 Grav) [facility] AreaZybrvsqGIGPVUKMHG3231-99-85 21:58:00 Test Item Value Reference Range Interpretation Comments UA Color (test code = Yellow (08/19/2011 N UA Color) 15:58:00) [facility] HospitalPrbubpoCGOGSKYIV3952-62-29 21:58:00 Test Item Value Reference Range Interpretation Comments S Preg (test code = S Negative (08/19/2011 N Preg) 15:58:00) [facility] HospitalRvmbefxVXMYWNROP4264-47-99 21:58:00 Test Item Value Reference Range Interpretation Comments Lipase Lvl (test code = Lipase Lvl) 169 73-393 N [facility] HospitalUuwjwliMMLGOULCY5309-22-90 21:58:00 Test Item Value Reference Range Interpretation Comments ALT (test code = ALT) 54 See_Comment N [Auto mated message] The system which ge nerated this result transmit rohit reference range : <=65. The reference range was not used to interpr et this result as reji l/abnormal. [facility] HospitalVpodazyATESIJTTC2445-05-57 21:58:00 Test Item Value Reference Range Interpretation Comments Alk Phos (test code = Alk Phos) 110 39-136 N [facility] HospitalOndnnwhUJRACSSLI7068-40-34 21:58:00 Test Item Value Reference Range Interpretation Comments Bili Direct (test code 0.1 See_Comment N [Aut omated message] The = Bili Direct) system which generated this result tra nsmitted reference range : <=0.3. The reference r leo was not used to int erpret this result as reji l/abnormal. [facility] HospitalWbseyzyZEHJUGLEU9525-63-71 21:58:00 Test Item Value Reference Range Interpretation Comments Bili Total (test code = Bili Total) 0.9 0.2-1.3 N [facility] HospitalFfxbbahTOTXEYRIT0977-82-90 21:58:00 Test Item Value Reference Range Interpretation Comments Albumin Lvl (test code = Albumin Lvl) 4.4 3.5-5.0 N [facility] HospitalDmiddnsNBTDPUZYY4139-24-48 21:58:00 Test Item Value Reference Range Interpretation Comments Total Protein (test code = Total 8.8 6.4-8.4 H Protein) [facility] HospitalHojvxmnTGVPINZBY4566-94-59 21:58:00 Test Item Value Reference Range Interpretation Comments Bili Indirect (test 0.8 See_Comment N [Automa rohit message] The code = Bili Indirect) system which generated this result tra nsmitted reference range : <=1.0. The reference r leo was not used to int erpret this result as normal/abnormal . [facility] HospitalOuzzrbdVLBKZHTSS3040-74-16 21:58:00 Test Item Value Reference Range Interpretation Comments AST (test code = AST) 36 See_Comment N [Auto mated message] The system which ge nerated this result transmit rohit reference range : <=37. The reference range was not used to interpr et this result as reji l/abnormal. [facility]burgIcqrdibINYSOXUAO1012-92-82 21:58:00 Test Item Value Reference Range Interpretation Comments Globulin (test code = Globulin) 4.4 2.0-4.0 H [facility] HospitalAajppoeEYTXEBPMM7097-72-70 21:58:00 Test Item Value Reference Range Interpretation Comments A/G Ratio (test code = A/G Ratio) 1.0 0.7-1.6 N [facility] HospitalBwwrriqYFULGTQJTR9007-60-94 21:58:00 Test Item Value Reference Range Interpretation Comments UA Bacteria (test code Occasional /HPF N = UA Bacteria) (08/19/2011 15:58:00) [facility] HospitalIkerqryBFREAQPNZP5865-99-69 21:58:00 Test Item Value Reference Range Interpretation Comments UA RBC (test 3-5 /HPF See_Comment A [Automated mes pastor] code = UA RBC) *ABN*(08/19/2011 The syste m which 15:58:00) generated this result transmitted ref erence range: <=2. The reference range was not used to int erpret this result as normal/abnormal . [facility] HospitalQngktguAAQYVRHEAP8040-50-93 21:58:00 Test Item Value Reference Range Interpretation Comments UA WBC (test code = 3 See_Comment [Automa rohit message] The UA WBC) system which ge nerated this result transmit rohit reference range : <=5. The reference range was not used to interpr et this result as reji l/abnormal. [facility] HospitalNwuhpxfZZLHFHANLD3602-06-42 21:58:00 Test Item Value Reference Range Interpretation Comments UA Mucus (test code = Few /LPF (08/19/2011 N UA Mucus) 15:58:00) [facility] HospitalXumwrdhODKDFHWAGG7463-62-66 21:58:00 Test Item Value Reference Range Interpretation Comments UA Amorph Destiny (test Occasional /HPF A code = UA Amorph *ABN*(08/19/2011 Destiny) 15:58:00) [facility] HospitalAygqikbOHPQBMTRTO9879-32-06 21:58:00 Test Item Value Reference Range Interpretation Comments UA Urobilinogen (test code = UA 0.2 0.1-1.0 N Urobilinogen) [facility] HospitalWlytbskGFDVLDKVJL7478-21-15 21:58:00 Test Item Value Reference Range Interpretation Comments UA Sq Epi (test code = Rare /LPF (08/19/2011 N UA Sq Epi) 15:58:00) [facility] HospitalMjojemkGXBDDZELDY3723-62-43 21:58:00 Test Item Value Reference Range Interpretation Comments Micro? (test code = Performed (08/19/2011 N Micro?) 15:58:00) [facility] AreaVmebbkaIYJEJOOZMC6858-58-06 21:58:00 Test Item Value Reference Range Interpretation Comments UA Leuk Est (test Negative (08/19/2011 N code = UA Leuk Est) 15:58:00) [facility] HospitalBplmzgoFNEUUPCUKX5931-55-54 21:58:00 Test Item Value Reference Range Interpretation Comments UA Nitrite (test code Negative (08/19/2011 N = UA Nitrite) 15:58:00) [facility] AreaAexsqdrGZDBQYRPIA3386-44-93 21:58:00 Test Item Value Reference Range Interpretation Comments UA pH (test code = UA pH) 5.5 1 5.0-8.0 N [facility] HospitalPnxbhssNMNMLFMOLY1218-51-60 21:58:00 Test Item Value Reference Range Interpretation Comments UA Blood (test code = Trace *ABN*(08/19/2011 A UA Blood) 15:58:00) [facility] HospitalScabjojXGXFFMFIOW0480-62-68 21:58:00 Test Item Value Reference Range Interpretation Comments UA Bili (test code = Negative (08/19/2011 N UA Bili) 15:58:00) [facility] AreaVziosfaEZHROLKQPK7322-14-78 21:58:00 Test Item Value Reference Range Interpretation Comments UA Ketones (test code = 80 mg/dL A UA Ketones) *ABN*(08/19/2011 15:58:00) [facility] HospitalEcbdejbZPHFZCBALN7510-53-41 21:58:00 Test Item Value Reference Range Interpretation Comments UA Glucose (test code = >=1000 mg/dL A UA Glucose) *ABN*(08/19/2011 15:58:00) [facility] AreaLrripurITLKVOTUFF9117-76-84 21:58:00 Test Item Value Reference Range Interpretation Comments UA Protein (test code Negative (08/19/2011 N = UA Protein) 15:58:00) [facility] HospitalGwzrtdnVFULMLQXGB4433-31-22 21:58:00 Test Item Value Reference Range Interpretation Comments UA Turbidity (test code Slight Cloudy N = UA Turbidity) (08/19/2011 15:58:00) [facility]burgIoxobnaOYVPLXJTNT7768-06-73 21:58:00 Test Item Value Reference Range Interpretation Comments UA Spec Grav (test code = UA Spec 1.025 1 Grav) [facility]burgCfapeucCVFPLJMUWZ9928-81-11 21:58:00 Test Item Value Reference Range Interpretation Comments UA Color (test code = Yellow (08/19/2011 N UA Color) 15:58:00) [facility] HospitalSuwbsyxGGNVRFOPA3445-43-77 21:13:00 Test Item Value Reference Range Interpretation Comments AST (test code = AST) 23 See_Comment N [Auto mated message] The system which ge nerated this result transmit rohit reference range : <=37. The reference range was not used to interpr et this result as reji l/abnormal. [facility] HospitalHhfveutUVBCUGQLW0024-66-15 21:13:00 Test Item Value Reference Range Interpretation Comments Bili Total (test code = Bili Total) 1.0 0.2-1.3 N [facility] HospitalDpqmfpjQZNNFURJV3278-38-72 21:13:00 Test Item Value Reference Range Interpretation Comments Alk Phos (test code = Alk Phos) 115 39-136 N [facility] HospitalOqeiphoGOAWEVWCS6831-95-77 21:13:00 Test Item Value Reference Range Interpretation Comments ALT (test code = ALT) 56 See_Comment N [Auto mated message] The system which ge nerated this result transmit rohit reference range : <=65. The reference range was not used to interpr et this result as reji l/abnormal. [facility] HospitalAzimwpyHWGYEVZIQ6545-26-63 21:13:00 Test Item Value Reference Range Interpretation Comments Total Protein (test code = Total 9.0 6.4-8.4 H Protein) [facility] HospitalWdxbireRHTQMTLHN8595-29-12 21:13:00 Test Item Value Reference Range Interpretation Comments Albumin Lvl (test code = Albumin Lvl) 4.8 3.5-5.0 N [facility] HospitalWgxfzswZHSXJWGNA2371-36-36 21:13:00 Test Item Value Reference Range Interpretation Comments Globulin (test code = Globulin) 4.2 2.0-4.0 H [facility] HospitalSrxqeqxOXFQNRJER6310-27-79 21:13:00 Test Item Value Reference Range Interpretation Comments A/G Ratio (test code = A/G Ratio) 1.1 0.7-1.6 N [facility] HospitalZhhwlevGCKCIHIVG7530-05-30 21:13:00 Test Item Value Reference Range Interpretation Comments B/C Ratio (test code = B/C Ratio) 30 6-25 H [facility] StationCdobnjlUGCSYQDFBH5232-67-23 21:13:00 Test Item Value Reference Range Interpretation Comments RBC Morph (test code = Normal (08/19/2011 N RBC Morph) 15:13:00) [facility] StationQypfadjTKXVYNPJRP4699-08-40 21:13:00 Test Item Value Reference Range Interpretation Comments Large Plt (test code = Slight *ABN*(08/19/2011 A Large Plt) 15:13:00) [facility] StationSpnboqeGSBLMWWNJW5027-14-36 21:13:00 Test Item Value Reference Range Interpretation Comments Atypical Lymphs (test code = Atypical 0.0 N Lymphs) [facility] StationTfauoqdUWUDDMNOCK6337-99-72 21:13:00 Test Item Value Reference Range Interpretation Comments Bands (test code = 0.0 See_Comment N [Automat ed message] The Bands) system which ge nerated this result transmit rohit reference range : <=11.0. The reference r leo was not used to interpr et this result as reji l/abnormal. [facility] HospitalStwwcorDTRJVWTZN3899-47-43 21:13:00 Test Item Value Reference Range Interpretation Comments AST (test code = AST) 23 See_Comment N [Auto mated message] The system which ge nerated this result transmit rohit reference range : <=37. The reference range was not used to interpr et this result as reji l/abnormal. [facility] HospitalDbtylpuHSXGBQAYW8866-11-29 21:13:00 Test Item Value Reference Range Interpretation Comments Bili Total (test code = Bili Total) 1.0 0.2-1.3 N [facility] HospitalBbokupbRIHEKCVUP9604-20-24 21:13:00 Test Item Value Reference Range Interpretation Comments Alk Phos (test code = Alk Phos) 115 39-136 N [facility] HospitalJrmbtgvMJSZSJFRX3685-87-09 21:13:00 Test Item Value Reference Range Interpretation Comments ALT (test code = ALT) 56 See_Comment N [Auto mated message] The system which ge nerated this result transmit rohit reference range : <=65. The reference range was not used to interpr et this result as reji l/abnormal. [facility] HospitalXlkjllkDVMZOORHR2903-48-41 21:13:00 Test Item Value Reference Range Interpretation Comments Total Protein (test code = Total 9.0 6.4-8.4 H Protein) [facility] HospitalAgxbklmIGYZVXBNK9355-91-61 21:13:00 Test Item Value Reference Range Interpretation Comments Albumin Lvl (test code = Albumin Lvl) 4.8 3.5-5.0 N [facility] HospitalZuwbfffUMCTAVQJD3920-65-25 21:13:00 Test Item Value Reference Range Interpretation Comments Globulin (test code = Globulin) 4.2 2.0-4.0 H [facility] HospitalOyuzgqzJZNTNPKWT7620-31-23 21:13:00 Test Item Value Reference Range Interpretation Comments A/G Ratio (test code = A/G Ratio) 1.1 0.7-1.6 N [facility] HospitalVignqaxZUERXOZRQ4637-40-28 21:13:00 Test Item Value Reference Range Interpretation Comments B/C Ratio (test code = B/C Ratio) 30 6-25 H [facility] StationKxbenzdXDRHLOQSMY4758-95-91 21:13:00 Test Item Value Reference Range Interpretation Comments RBC Morph (test code = Normal (08/19/2011 N RBC Morph) 15:13:00) [facility] StationRstwuzxQQJTIKSLWH9022-63-32 21:13:00 Test Item Value Reference Range Interpretation Comments Large Plt (test code = Slight *ABN*(08/19/2011 A Large Plt) 15:13:00) [facility] StationUhbquycAJMORFWDPM7764-65-25 21:13:00 Test Item Value Reference Range Interpretation Comments Atypical Lymphs (test code = Atypical 0.0 N Lymphs) [facility] StationKxuienxTZPLQJUWWS0581-52-19 21:13:00 Test Item Value Reference Range Interpretation Comments Bands (test code = 0.0 See_Comment N [Automat ed message] The Bands) system which ge nerated this result transmit rohit reference range : <=11.0. The reference r leo was not used to interpr et this result as reji l/abnormal. [facility] HospitalExmzmunZGSDPDWZL5768-91-36 21:13:00 Test Item Value Reference Range Interpretation Comments AST (test code = AST) 23 See_Comment N [Auto mated message] The system which ge nerated this result transmit rohit reference range : <=37. The reference range was not used to interpr et this result as reji l/abnormal. [facility] Hospi[id number] 21:13:00 Test Item Value Reference Range Interpretation Comments Bili Total (test code = Bili Total) 1.0 0.2-1.3 N [place] [id number] 21:13:00 Test Item Value Reference Range Interpretation Comments Alk Phos (test code = Alk Phos) 115 39-136 N [facility] HospitalVidcgpkSXJGBALII7713-60-11 21:13:00 Test Item Value Reference Range Interpretation Comments ALT (test code = ALT) 56 See_Comment N [Auto mated message] The system which ge nerated this result transmit rohit reference range : <=65. The reference range was not used to interpr et this result as reji l/abnormal. [facility] HospitalBaejlazQANMXASUE4913-60-87 21:13:00 Test Item Value Reference Range Interpretation Comments Total Protein (test code = Total 9.0 6.4-8.4 H Protein) [facility] HospitalDviindqXBEFXQPGB9853-18-48 21:13:00 Test Item Value Reference Range Interpretation Comments Albumin Lvl (test code = Albumin Lvl) 4.8 3.5-5.0 N [facility] HospitalEawrrvgDWWYYRIJX1379-91-07 21:13:00 Test Item Value Reference Range Interpretation Comments Globulin (test code = Globulin) 4.2 2.0-4.0 H [facility] HospitalVnteotbVCVGFSJUJ3061-55-83 21:13:00 Test Item Value Reference Range Interpretation Comments A/G Ratio (test code = A/G Ratio) 1.1 0.7-1.6 N [facility] HospitalBsjcsskPMDISURQD7323-04-94 21:13:00 Test Item Value Reference Range Interpretation Comments B/C Ratio (test code = B/C Ratio) 30 6-25 H [facility] StationAuocaxgBGDKIUQGDF1230-73-96 21:13:00 Test Item Value Reference Range Interpretation Comments RBC Morph (test code = Normal (08/19/2011 N RBC Morph) 15:13:00) [facility] StationVnvxqbjURTEXZWLTF7405-94-86 21:13:00 Test Item Value Reference Range Interpretation Comments Large Plt (test code = Slight *ABN*(08/19/2011 A Large Plt) 15:13:00) [facility] StationBciwzfaVLKDKXPKVG2158-33-31 21:13:00 Test Item Value Reference Range Interpretation Comments Atypical Lymphs (test code = Atypical 0.0 N Lymphs) [facility] StationIvbrsnvNXFICIDYVH6708-94-83 21:13:00 Test Item Value Reference Range Interpretation Comments Bands (test code = 0.0 See_Comment N [Automat ed message] The Bands) system which ge nerated this result transmit rohit reference range : <=11.0. The reference r leo was not used to interpr et this result as reji l/abnormal. [facility] HospitalYbbanswLGAYLGPZJ3362-50-06 21:13:00 Test Item Value Reference Range Interpretation Comments AST (test code = AST) 23 See_Comment N [Auto mated message] The system which ge nerated this result transmit rohit reference range : <=37. The reference range was not used to interpr et this result as reji l/abnormal. [facility] HospitalHocgzdjZMWLPTNNG7394-46-34 21:13:00 Test Item Value Reference Range Interpretation Comments Bili Total (test code = Bili Total) 1.0 0.2-1.3 N [facility] HospitalVfogjypVGWTGZKNO4086-79-69 21:13:00 Test Item Value Reference Range Interpretation Comments Alk Phos (test code = Alk Phos) 115 39-136 N [facility] HospitalTiatlzlGNQVLGRLM4515-91-47 21:13:00 Test Item Value Reference Range Interpretation Comments ALT (test code = ALT) 56 See_Comment N [Auto mated message] The system which ge nerated this result transmit rohit reference range : <=65. The reference range was not used to interpr et this result as reji l/abnormal. [facility] HospitalXacxjnzREMFUFLUN4538-88-99 21:13:00 Test Item Value Reference Range Interpretation Comments Total Protein (test code = Total 9.0 6.4-8.4 H Protein) [facility] HospitalAejkmpgBXPXOLVEG6791-08-10 21:13:00 Test Item Value Reference Range Interpretation Comments Albumin Lvl (test code = Albumin Lvl) 4.8 3.5-5.0 N [facility] HospitalWmvcgbvTYIZIORRB1670-82-85 21:13:00 Test Item Value Reference Range Interpretation Comments Globulin (test code = Globulin) 4.2 2.0-4.0 H [facility] HospitalVafutyyGCGMERFWC2934-15-78 21:13:00 Test Item Value Reference Range Interpretation Comments A/G Ratio (test code = A/G Ratio) 1.1 0.7-1.6 N [facility] HospitalLpbnocoCYGNQBHXW7730-28-72 21:13:00 Test Item Value Reference Range Interpretation Comments B/C Ratio (test code = B/C Ratio) 30 6-25 H [facility] StationUggtkgdGXGTOWFAEW5027-48-64 21:13:00 Test Item Value Reference Range Interpretation Comments RBC Morph (test code = Normal (08/19/2011 N RBC Morph) 15:13:00) [facility] StationPwunqjjHLPYAEIFFM1698-11-76 21:13:00 Test Item Value Reference Range Interpretation Comments Large Plt (test code = Slight *ABN*(08/19/2011 A Large Plt) 15:13:00) [facility] StationUqxcriePXCSFAANXX5991-24-35 21:13:00 Test Item Value Reference Range Interpretation Comments Atypical Lymphs (test code = Atypical 0.0 N Lymphs) [facility] StationEkvmxbrQHBLKUVKYQ5366-74-13 21:13:00 Test Item Value Reference Range Interpretation Comments Bands (test code = 0.0 See_Comment N [Automat ed message] The Bands) system which ge nerated this result transmit rohit reference range : <=11.0. The reference r leo was not used to interpr et this result as reji l/abnormal. [facility] HospitalIuthtpdEREUQXNNI6045-90-79 21:13:00 Test Item Value Reference Range Interpretation Comments AST (test code = AST) 23 See_Comment N [Auto mated message] The system which ge nerated this result transmit rohit reference range : <=37. The reference range was not used to interpr et this result as reji l/abnormal. [facility] HospitalDokwczmXSAWNGKVX5744-75-29 21:13:00 Test Item Value Reference Range Interpretation Comments Bili Total (test code = Bili Total) 1.0 0.2-1.3 N [facility] HospitalPfzjfqnXKXVPGPBO6000-50-08 21:13:00 Test Item Value Reference Range Interpretation Comments Alk Phos (test code = Alk Phos) 115 39-136 N [facility] HospitalOrwlhwmBSGONJPIA0210-16-56 21:13:00 Test Item Value Reference Range Interpretation Comments ALT (test code = ALT) 56 See_Comment N [Auto mated message] The system which ge nerated this result transmit rohit reference range : <=65. The reference range was not used to interpr et this result as reji l/abnormal. [facility] HospitalHxddwbuKOPBMMUAV5163-21-78 21:13:00 Test Item Value Reference Range Interpretation Comments Total Protein (test code = Total 9.0 6.4-8.4 H Protein) [facility] HospitalGmgpmskZMZRGTSGG0816-41-08 21:13:00 Test Item Value Reference Range Interpretation Comments Albumin Lvl (test code = Albumin Lvl) 4.8 3.5-5.0 N [facility] HospitalYqfrehjRUOWUVERB9034-78-69 21:13:00 Test Item Value Reference Range Interpretation Comments Globulin (test code = Globulin) 4.2 2.0-4.0 H [facility] HospitalDcpdbkhLNFNIHALB5024-09-68 21:13:00 Test Item Value Reference Range Interpretation Comments A/G Ratio (test code = A/G Ratio) 1.1 0.7-1.6 N [facility] HospitalVggxuptTMJRMTDPE7048-54-02 21:13:00 Test Item Value Reference Range Interpretation Comments B/C Ratio (test code = B/C Ratio) 30 6-25 H [facility] StationNjhmctvHPECDMMBGA2466-45-35 21:13:00 Test Item Value Reference Range Interpretation Comments RBC Morph (test code = Normal (08/19/2011 N RBC Morph) 15:13:00) [facility] StationAdpnddzUMKCBUMGRK1340-96-95 21:13:00 Test Item Value Reference Range Interpretation Comments Large Plt (test code = Slight *ABN*(08/19/2011 A Large Plt) 15:13:00) [facility] StationZqhaqwcRUXAFBCJHX2174-23-27 21:13:00 Test Item Value Reference Range Interpretation Comments Atypical Lymphs (test code = Atypical 0.0 N Lymphs) [facility] StationZgpmgvnRRTSEJLHTG0135-83-62 21:13:00 Test Item Value Reference Range Interpretation Comments Bands (test code = 0.0 See_Comment N [Automat ed message] The Bands) system which ge nerated this result transmit rohit reference range : <=11.0. The reference r leo was not used to interpr et this result as reji l/abnormal. [facility] HospitalLilaifuCWHZRFXWV3066-97-74 21:10:00 Test Item Value Reference Range Interpretation Comments O2 Sat Roberth (test code = O2 Sat Roberth) 74.0 40.0-70.0 H [facility] HospitalTnoepomJHONXZFCC9966-56-82 21:10:00 Test Item Value Reference Range Interpretation Comments Temp Roberth (test code = Temp Roberth) 37.0 [facility] HospitalVadwguzNNIXPXMXB5290-92-24 21:10:00 Test Item Value Reference Range Interpretation Comments pO2 Roberth (test code = pO2 Roberth) 42 20-49 N [facility] HospitalPsuqvjmLOPSYVLZP5804-60-26 21:10:00 Test Item Value Reference Range Interpretation Comments HCO3 Roberth (test code = HCO3 Roberth) 17.3 22.0-26.0 L [facility] HospitalArgjobuRGRMQVNHP4360-65-28 21:10:00 Test Item Value Reference Range Interpretation Comments pH Roberth (test code = pH Roebrth) 7.34 7.28-7.42 N [facility] HospitalUvdxfvjVSVVGRBKQ2579-65-99 21:10:00 Test Item Value Reference Range Interpretation Comments pCO2 Roberth (test code = pCO2 Roberth) 32 38-52 L [facility] HospitalAlvxqsoUMEVFOWZF9423-23-88 21:10:00 Test Item Value Reference Range Interpretation Comments BE Roberth (test code = -7 See_Comment L [Automa rohit message] The BE Roberth) system which ge nerated this result transmit rohit reference range : <=2. The reference range was not used to interpr et this result as reji l/abnormal. [facility] HospitalSmmenumWMJAGGPQP2674-80-13 21:10:00 Test Item Value Reference Range Interpretation Comments O2 Sat Roberth (test code = O2 Sat Roberth) 74.0 40.0-70.0 H [facility] HospitalLlkxurhKWCXEDQUX2965-84-40 21:10:00 Test Item Value Reference Range Interpretation Comments Temp Roberth (test code = Temp Roberth) 37.0 [facility] HospitalXgnqtzbWNEVATPFS6775-50-36 21:10:00 Test Item Value Reference Range Interpretation Comments pO2 Roberth (test code = pO2 Roberth) 42 20-49 N [facility] HospitalWodhebvSUFVQQRWQ2470-93-49 21:10:00 Test Item Value Reference Range Interpretation Comments HCO3 Roberth (test code = HCO3 Roberth) 17.3 22.0-26.0 L [facility] HospitalMkhizouHCMCILFIB4596-28-78 21:10:00 Test Item Value Reference Range Interpretation Comments pH Roberth (test code = pH Roberth) 7.34 7.28-7.42 N [facility] HospitalRatzrphBWTNDHXBH7428-26-74 21:10:00 Test Item Value Reference Range Interpretation Comments pCO2 Roberth (test code = pCO2 Roberth) 32 38-52 L [facility] HospitalBmstcrhDSUGVFDRS3503-50-23 21:10:00 Test Item Value Reference Range Interpretation Comments BE Roberth (test code = -7 See_Comment L [Automa rohit message] The BE Roberth) system which ge nerated this result transmit rohit reference range : <=2. The reference range was not used to interpr et this result as reji l/abnormal. [facility] HospitalNchcyawWYXWOTAJC8849-15-21 21:10:00 Test Item Value Reference Range Interpretation Comments O2 Sat Roberth (test code = O2 Sat Roberth) 74.0 40.0-70.0 H [facility] HospitalHdgsznfSRHDQCXGY8133-66-27 21:10:00 Test Item Value Reference Range Interpretation Comments Temp Roberth (test code = Temp Roberth) 37.0 [facility] HospitalHxtfsfwLTLLKEUGM0219-04-51 21:10:00 Test Item Value Reference Range Interpretation Comments pO2 Roberth (test code = pO2 Roberth) 42 20-49 N [facility] HospitalOyetlmxCGVDMXZGC2593-64-26 21:10:00 Test Item Value Reference Range Interpretation Comments HCO3 Roberth (test code = HCO3 Roberth) 17.3 22.0-26.0 L [facility] HospitalHprwkvbZZCHCVKXG0588-57-13 21:10:00 Test Item Value Reference Range Interpretation Comments pH Roberth (test code = pH Roberth) 7.34 7.28-7.42 N [facility] HospitalZbhqnbkKKUMZKKQJ8447-07-64 21:10:00 Test Item Value Reference Range Interpretation Comments pCO2 Roberth (test code = pCO2 Roberth) 32 38-52 L [facility] HospitalOmfjtmyCDETRNDBD1573-18-87 21:10:00 Test Item Value Reference Range Interpretation Comments BE Roberth (test code = -7 See_Comment L [Automa rohit message] The BE Roberth) system which ge nerated this result transmit rohit reference range : <=2. The reference range was not used to interpr et this result as reji l/abnormal. [facility] HospitalYqwvfuoHYWGKRRJC4978-98-13 21:10:00 Test Item Value Reference Range Interpretation Comments O2 Sat Roberth (test code = O2 Sat Roberth) 74.0 40.0-70.0 H [facility] HospitalGltwneiMGAOKTQJO3152-31-91 21:10:00 Test Item Value Reference Range Interpretation Comments Temp Roberth (test code = Temp Roberth) 37.0 [place] [id number] 21:10:00 Test Item Value Reference Range Interpretation Comments pO2 Roberth (test code = pO2 Roberth) 42 20-49 N [facility] HospitalGekhuuxEDAHUMIRB2293-41-20 21:10:00 Test Item Value Reference Range Interpretation Comments HCO3 Roberth (test code = HCO3 Roberth) 17.3 22.0-26.0 L [facility] HospitalShysbmdXIHZEWDAD6535-64-68 21:10:00 Test Item Value Reference Range Interpretation Comments pH Roberth (test code = pH Roberth) 7.34 7.28-7.42 N [facility] HospitalVldoxcuAGTDJPZPN7042-53-09 21:10:00 Test Item Value Reference Range Interpretation Comments pCO2 Roberth (test code = pCO2 Roberth) 32 38-52 L [facility] HospitalZbhnxmyUEJBAATJC2068-61-42 21:10:00 Test Item Value Reference Range Interpretation Comments BE Roberth (test code = -7 See_Comment L [Automa rohit message] The BE Roberth) system which ge nerated this result transmit rohit reference range : <=2. The reference range was not used to interpr et this result as reji l/abnormal. [facility] HospitalHrldwlpMRDZDCLSX2864-62-65 21:10:00 Test Item Value Reference Range Interpretation Comments O2 Sat Roberth (test code = O2 Sat Roberth) 74.0 40.0-70.0 H [facility] HospitalOtvhwgyLECFRLGPU6235-30-97 21:10:00 Test Item Value Reference Range Interpretation Comments Temp Roberth (test code = Temp Roberth) 37.0 [facility] HospitalHtaparkLRQSWTRUX1628-79-12 21:10:00 Test Item Value Reference Range Interpretation Comments pO2 Roberth (test code = pO2 Roberth) 42 20-49 N [facility] HospitalDwoisvmCQFNWKWNG1609-19-03 21:10:00 Test Item Value Reference Range Interpretation Comments HCO3 Roberth (test code = HCO3 Roberth) 17.3 22.0-26.0 L [facility] HospitalTxsswugCUADIUBAA3812-80-26 21:10:00 Test Item Value Reference Range Interpretation Comments pH Roberth (test code = pH Roberth) 7.34 7.28-7.42 N [facility] HospitalHuxbtklVQMKMCXOQ3917-88-05 21:10:00 Test Item Value Reference Range Interpretation Comments pCO2 Roberth (test code = pCO2 Roberth) 32 38-52 L [facility] HospitalKfrixdkWXQKDLCIE7436-63-36 21:10:00 Test Item Value Reference Range Interpretation Comments BE Roberth (test code = -7 See_Comment L [Automa rohit message] The BE Roberth) system which ge nerated this result transmit rohit reference range : <=2. The reference range was not used to interpr et this result as reji l/abnormal. [facility] TaylorYluuyvoEURTNWBHJZ3457-56-58 20:34:00 Test Item Value Reference Range Interpretation Comments CDC-HIV 1/2 Ab (test Negative *NA*(08/19/2011 code = CDC-HIV 1/2 14:34:00) Ab) [facility] TaylorOqpekjeZPLIHATJEC3973-79-51 20:34:00 Test Item Value Reference Range Interpretation Comments CDC-HIV 1/2 Ab (test Negative *NA*(08/19/2011 code = CDC-HIV 1/2 14:34:00) Ab) [facility] TaylorQcfuwruTOOLGDUDCL0120-68-47 20:34:00 Test Item Value Reference Range Interpretation Comments CDC-HIV 1/2 Ab (test Negative *NA*(08/19/2011 code = CDC-HIV 1/2 14:34:00) Ab) [facility] TaylorFuqxldxDSKABXYTCH1477-22-72 20:34:00 Test Item Value Reference Range Interpretation Comments CDC-HIV 1/2 Ab (test Negative *NA*(08/19/2011 code = CDC-HIV 1/2 14:34:00) Ab) [facility] TaylorQfppvmlAXAPIHOPPD7137-37-84 20:34:00 Test Item Value Reference Range Interpretation Comments CDC-HIV 1/2 Ab (test Negative *NA*(08/19/2011 code = CDC-HIV 1/2 14:34:00) Ab) [facility]
[2022-12-25 15:43] LABS: Absolute Lymphocytes (CBC) 0.8 K/uL (0.7-4.9); Hematocrit 28.3 % (36.0-45.0); MCV 90.2 fL (80-100); MPV 9.8 fL (7.6-11.3); RBC Red Blood Cell Count 3.14 M/uL (3.86-4.86)
[2022-12-25 16:00] LABS: Albumin 3.6 g/dL (3.4-5.0); Bilirubin Total 0.7 mg/dL (0.2-1.0); Potassium 4.2 mEq/L (3.5-5.1); Protein, Total 6.9 g/dL (6.4-8.2)
--- NOTE | 2022-12-25 16:01 | RAD REPORT ---
EXAM DESCRIPTION: US - Abdomen Exam Limited - 12/25/2022 3:03 pm CLINICAL HISTORY: ABD PAIN COMPARISON: Abdomen Exam Limited dated 12/10/2022 TECHNIQUE: Sonographic grayscale and color flow images of the right upper abdominal quadrant were obtained. FINDINGS: The gallbladder demonstrates multiple shadowing gallstones, up to 8 mm in size. No pericho lecystic fluid. Mild gallbladder wall thickening, 4 mm. The common bile duct is normal measuring 4 mm . The liver demonstrates no findings of intrahepatic biliary dilatation. IMPRESSION: Stable findings including cholelithiasis with gallbladder wall thickening, suspicious fo r cholecystitis.
--- NOTE | 2022-12-25 16:23 | EDPHYS ---
Physician Documentation [facility] Name: Cathi Zaldivar Age: 42 yrs Sex: Female : 1980 Arrival Date: 12/25/2022 Time: 14:12 Bed 20 Private MD: ED Physician Dinesh Stallworth HPI: 12/25 14:22 This 42 yrs old Female presents to ER via EMS with complaints of Abdominal rn Pain. 14:22 The patient presents with abdominal pain in the right upper quadrant. Onset: The rn symptoms/episode began/occurred 2 week(s) ago. The symptoms do not radiate. Associated signs and symptoms: Pertinent positives: nausea and vomiting, Pertinent negatives: blood in stools, chest pain, fever. Modifying factors: The symptoms are alleviated by nothing, the symptoms are aggravated by food, touching the area. Severity of pain: At its worst the pain was moderate in the emergency department the pain is unchanged. The patient has experienced similar episodes in the past. The patient has been recently seen by a physician:. Pt reports told a few weeks ago that her gallbladder needs to be removed, sent to [facility], ultimately told gallbladder did not need to come out. Returns today for persistent upper abd pain for last 2 weeks, states feels different than her gastroparesis pain she usually has. No fever. . Historical: - Allergies: 14:15 ambien; ld1 14:15 Codeine; ld1 14:15 GABAPENTIN; ld1 14:15 GUAIFENESIN; ld1 14:15 Lisinopril; ld1 14:15 Morphine; ld1 14:15 Nitrofurantoin Macrocrystal; ld1 14:15 PENICILLINS; ld1 14:15 Prolixin; ld1 14:15 Seroquel; ld1 14:15 Tape; ld1 14:15 zolpidem tartrate; ld1 - PMHx: 14:15 "mental problems"; cardiac arrest; CHF; chronic kidney disease; cyclic vomiting ld1 syndrome; Diabetes - NIDDM; Dialysis; m-w-f; ENCEPHALOPATHY; Gastroparesis; Hypertension; ibs; liver failure; PERIPHERAL NEUROPATHY; pseudo aneurysm R groin; Seizures; - PSHx: 14:15 section; dialysis catheter R chest wall; eye removed; ld1 14:21 2 heart stents; ll1 - Immunization history:: Adult Immunizations up to date. - Social history:: Smoking status: Patient reports the use of cigarette tobacco products, smokes one-half pack cigarettes per day. - Family history:: not pertinent. - Hospitalizations: : Patient was recently seen at. ROS: 14:22 Constitutional: Negative for fever, chills, and weight loss, Cardiovascular: Negative rn for chest pain, palpitations, and edema, Respiratory: Negative for shortness of breath, cough, wheezing, and pleuritic chest pain, Abdomen/GI: + abd pain and nausea/vomiting MS/Extremity: Negative for injury and deformity, Skin: Negative for injury, rash, and discoloration, Neuro: Negative for headache, weakness, numbness, tingling, and seizure. Exam: 14:22 Constitutional: This is a well developed, well nourished patient who is awake, alert, rn and in no acute distress. Cardiovascular: Regular rate and rhythm. No pulse deficits. Respiratory: No increased work of breathing, no retractions or nasal flaring. Abdomen/GI: Soft, mild epigastric and RUQ tenderness Skin: Warm, dry MS/ Extremity: Pulses equal, no cyanosis. Neuro: Awake and alert, GCS 15 Vital Signs: 14:20 Resp 17; Temp 98.1; Weight 76 kg; Height 5 ft. 1 in. ; Pain 9/10; ll1 14:35 BP 197 / 102; Pulse 76; Resp 18; Pulse Ox 97% on R/A; Pain 8/10; ld1 16:36 BP 254 / 113; Pulse 83; Resp 18; Pulse Ox 99% on R/A; Pain 10/10; ld1 17:17 BP 157 / 88; Pulse 81; Resp 18; Pulse Ox 94% on R/A; ld1 14:20 Body Mass Index 31.66 (76.00 kg, 154.94 cm) ll1 14:20 Pain Scale: Adult ll1 14:35 Pain Scale: Adult ld1 16:36 Pain Scale: Adult ld1 MDM: 14:16 Patient medically screened. rn 16:21 Differential diagnosis: cholecystitis, Cholelithiasis, gastritis, gastroesophageal rn reflux disease, non-specific abd pain, pancreatitis, Peptic Ulcer Disease. Data reviewed: vital signs, nurses notes, lab test result(s), radiologic studies, ultrasound, and as a result, I will admit patient. Consideration of Admission/Observation Patient was admitted/placed on observation. Escalation of care including admission/observation considered. Management of patient was discussed with the following: Sixth Grade Teacher: Dr. Tate, will admit to hospitalist, IV abx, pain meds, and eval patient for surgery. Counseling: I had a detailed discussion with the patient and/or guardian regarding: the historical points, exam findings, and any diagnostic results supporting the discharge/admit diagnosis, lab results, radiology results, the need for further work-up and treatment in the hospital. Response to treatment: the patient's symptoms have mildly improved after treatment, and as a result, I will admit patient. 12/25 14:16 Order name: CBC with Diff; Complete Time: 16:21 rn 12/25 14:16 Order name: CMP; Complete Time: 16:09 rn 12/25 14:16 Order name: Lipase; Complete Time: 16:09 rn 12/25 14:16 Order name: US Abdomen Limited; Complete Time: 16:09 rn 12/25 14:16 Order name: IV Saline Lock; Complete Time: 15:24 rn 12/25 14:16 Order name: Labs collected and sent; Complete Time: 15:24 rn Administered Medications: 15:24 Drug: Ondansetron IVP 4 mg Route: IVP; Site: left antecubital; ld1 16:36 Drug: HYDROmorphone IVP 1 mg Route: IVP; Site: left antecubital; ld1 16:36 Drug: Rocephin IV 1 grams Route: IV; Rate: calculated rate; Site: left antecubital; ld1 16:36 Drug: metroNIDAZOLE IVPB 500 mg Volume: 100 ml; Route: IVPB; Rate: 200 ml/hr; Infused ld1 Over: 30 mins; Site: left antecubital; 16:48 Drug: hydrALAZINE IVP 10 mg Route: IVP; Site: left antecubital; ld1 Disposition Summary: 12/25/22 16:23 Hospitalization Ordered Hospitalization Status: Inpatient Admission rn Provider: Hugh Stallworth rn Location: Telemetry/MedSurg (Inpatient) rn Condition: Stable rn Problem: new rn Symptoms: are unchanged rn Bed/Room Type: Standard rn Room Assignment: 204(12/25/22 19:13) cg Diagnosis - Acute cholecystitis rn - End stage renal disease rn Forms: - Medication Reconciliation Form rn - SBAR form rn Signatures: Dispatcher [employer] Dinesh Allen MD MD rn Garcia, Cindy, RN RN cg Lewis, Lynsay, RN RN [facility] Sarah Saleh RN RN ld1 Corrections: (The following items were deleted from the chart) 14:21 14:15 Social history: Smoking status: Patient denies any tobacco usage or history of. 1 ld1 19:13 16:23 anna johnson
--- NOTE | 2022-12-25 16:23 | ER ---
Nurse's Notes [facility] Name: Cathi Zaldivar Age: 42 yrs Sex: Female : 1980 Arrival Date: 12/25/2022 Time: 14:12 Bed 20 Private MD: Diagnosis: Acute cholecystitis;End stage renal disease Presentation: 12/25 14:16 Chief complaint: Patient states: Abdominal pain for over 3 weeks. Known gallbladder ld1 problem. Ebola Screen: Patient denies travel to an Ebola-affected area in the 21 days before illness onset. Initial Sepsis Screen: Does the patient meet any 2 criteria? No. Patient's initial sepsis screen is negative. Does the patient have a suspected source of infection? Yes: Skin breakdown/wound. Risk Assessment: Do you want to hurt yourself or someone else? Patient reports no desire to harm self or others. Onset of symptoms was December 04, 2022. 14:16 Method Of Arrival: EMS ld1 14:16 Acuity: JESSICA 3 ld1 14:20 Coronavirus screen: Client denies travel out of the [place] in the last 14 days. At this ll1 time, the client does not indicate any symptoms associated with coronavirus-19. Historical: - Allergies: 14:15 ambien; ld1 14:15 Codeine; ld1 14:15 GABAPENTIN; ld1 14:15 GUAIFENESIN; ld1 14:15 Lisinopril; ld1 14:15 Morphine; ld1 14:15 Nitrofurantoin Macrocrystal; ld1 14:15 PENICILLINS; ld1 14:15 Prolixin; ld1 14:15 Seroquel; ld1 14:15 Tape; ld1 14:15 zolpidem tartrate; ld1 - PMHx: 14:15 "mental problems"; cardiac arrest; CHF; chronic kidney disease; cyclic vomiting ld1 syndrome; Diabetes - NIDDM; Dialysis; m-w-f; ENCEPHALOPATHY; Gastroparesis; Hypertension; ibs; liver failure; PERIPHERAL NEUROPATHY; pseudo aneurysm R groin; Seizures; - PSHx: 14:15 section; dialysis catheter R chest wall; eye removed; ld1 14:21 2 heart stents; ll1 - Immunization history:: Adult Immunizations up to date. - Social history:: Smoking status: Patient reports the use of cigarette tobacco products, smokes one-half pack cigarettes per day. - Family history:: not pertinent. - Hospitalizations: : Patient was recently seen at. Screenin:35 [facility] ED Fall Risk Assessment (Adult) History of falling in the last 3 months, ld1 including since admission No falls in past 3 months (0 pts). Abuse screen: Denies threats or abuse. Denies injuries from another. Nutritional screening: No deficits noted. Tuberculosis screening: No symptoms or risk factors identified. Assessment: 14:35 General: Appears in no apparent distress. comfortable, Behavior is calm, cooperative, ld1 appropriate for age. Pain: Complains of pain in abdomen Pain does not radiate. Pain currently is 8 out of 10 on a pain scale. Quality of pain is described as throbbing. Neuro: Level of Consciousness is awake, alert, obeys commands, Oriented to person, place, time, situation. Cardiovascular: Capillary refill < 3 seconds Patient's skin is warm and dry. Respiratory: Airway is patent Respiratory effort is even, unlabored. GI: Abdomen is round non-distended, Bowel sounds present X 4 quads. Abd is soft Abdomen is tender to palpation. : No signs and/or symptoms were reported regarding the genitourinary system. EENT: No signs and/or symptoms were reported regarding the EENT system. Derm: No signs and/or symptoms reported regarding the dermatologic system. Musculoskeletal: No signs and/or symptoms reported regarding the musculoskeletal system. 16:37 Reassessment: Hospitalist aware of VS - Hospitalist at bedside. ld1 Vital Signs: 14:20 Resp 17; Temp 98.1; Weight 76 kg; Height 5 ft. 1 in. ; Pain 9/10; ll1 14:35 BP 197 / 102; Pulse 76; Resp 18; Pulse Ox 97% on R/A; Pain 8/10; ld1 16:36 BP 254 / 113; Pulse 83; Resp 18; Pulse Ox 99% on R/A; Pain 10/10; ld1 17:17 BP 157 / 88; Pulse 81; Resp 18; Pulse Ox 94% on R/A; ld1 14:20 Body Mass Index 31.66 (76.00 kg, 154.94 cm) ll1 14:20 Pain Scale: Adult ll1 14:35 Pain Scale: Adult ld1 16:36 Pain Scale: Adult ld1 ED Course: 14:15 Patient arrived in ED. ld1 14:15 Arm band placed on Patient placed in an exam room, on a stretcher. ld1 14:16 Dinesh Stallworth MD is Attending Physician. rn 14:16 Nora Tucker, RN is Primary Nurse. [facility] 14:17 Triage completed. ld1 14:22 Patient has correct armband on for positive identification. Placed in gown. Bed in low mm9 position. Call light in reach. Side rails up X2. Warm blanket given. Pulse ox on. NIBP on. 14:24 Diet: Patient is NPO. mm9 14:35 No provider procedures requiring assistance completed. ld1 15:05 US Abdomen Limited In Process Unspecified. EDMS 16:22 Hugh Stallworth MD is Hospitalizing Provider. rn 19:48 Patient admitted, IV remains in place. kl Administered Medications: 15:24 Drug: Ondansetron IVP 4 mg Route: IVP; Site: left antecubital; ld1 16:36 Drug: HYDROmorphone IVP 1 mg Route: IVP; Site: left antecubital; ld1 16:36 Drug: Rocephin IV 1 grams Route: IV; Rate: calculated rate; Site: left antecubital; ld1 16:36 Drug: metroNIDAZOLE IVPB 500 mg Volume: 100 ml; Route: IVPB; Rate: 200 ml/hr; Infused ld1 Over: 30 mins; Site: left antecubital; 16:48 Drug: hydrALAZINE IVP 10 mg Route: IVP; Site: left antecubital; ld1 Medication: 14:35 VIS not applicable for this client. ld1 Outcome: 16:23 Decision to Hospitalize by Provider. rn 19:48 Admitted to Med/surg via stretcher, room 204, with chart, Report called to IVETTE padilla 19:48 Condition: improved 19:48 Discharge instructions given to patient, Instructed on the need for admit, Demonstrated understanding of instructions. 20:00 Patient left the ED. valerie Signatures: Dispatcher [employer] EDTika Ramon RN RN kl Nieto, Roman, MD MD rn Lewis, Lynsay, RN RN Sarah Crow RN RN ld1 Hall, Erin, RN RN [facility] Ansley Maddox mm9 Corrections: (The following items were deleted from the chart) 14:21 14:15 Social history: Smoking status: Patient denies any tobacco usage or history of. ll1 ld1 14:22 14:20 Resp 17bpm; 76 kg; Height 5 ft. 1 in.; BMI: 31.6; Pain 02/28, Adult; ll1 ll1
[2022-12-25] MEDS ORDERED: METRONIDAZOLE 500mg IVPB 500 MG/100 ML BAG IV ONE (16:32)
[2022-12-25] MEDS ORDERED: HYDROMORPHONE HCL 1 MG/ML INJ ONE (16:32)
[2022-12-25] MEDS ORDERED: CEFTRIAXONE 1000 MG/VIAL ONE (16:32)
[2022-12-25] MEDS ORDERED: HYDRALAZINE HCL 20 MG/ML VIAL ONE (16:55)
[2022-12-25] MEDS ORDERED: PROMETHAZINE 25 MG TABLET PO PRN (17:18)
--- NOTE | 2022-12-25 17:33 | P.HP ---
Certification for Inpatient Patient admitted to: Inpatient With expected LOS: <2 Midnights Patient will require the following post-hospital care: None Practitioner: I am a practitioner with admitting privileges, knowledge of patient current condition, hospital course, and medical plan of care. Services: Services provided to patient in accordance with Admission requirements found in Title 42 Section 412.3 of the Code of Federal Regulations Patient History Date of Service: 12/25/22 Reason for admission: Abdominal pain History of Present Illness: 42-year-old female with history of ESRD on HD, diabetes mellitus type 2insulin- dependent, gastroparesis, chronic diastolic congestive heart failure, hypertension, and seizure disorder who presented to the emergency department with complaints abdominal pain, nausea, and voming. She reports symptoms started 2 weeks ago. She denies this is similar to gastroparesis. She reorts RUQ pain jasmin is worse with PO intake. She reports ESRD on HD, she reports she missed last two dialysis cesssion d/t abdominal pain, nv. She denies fever, chills, shortness of breath, chest pain, or dizziness. ER course ED provider wishes to admit for further evaluation and management, dialysis., Surgery consulted for cholecystitis Laboratory evaluation Potassium stable at 4.2, sodium normal at 137, BUN elevated at 37, creatinine elevated at 9.11, WBCs low at 2.7, microcytic anemia, hemoglobin 9.3 28.3, platelets are mildly low at 124, Radiology Prior abdominal ultrasound 12/10/2022, multiple gallstones up to 8 mm in size, mild gallbladder thickening, at 4 mm, common bile duct is measuring 4 mm, cholelithiasis with gallbladder thickening and suspicious for cholecystitis Allergies zolpidem tartrate [From Ambien] Allergy (Intermediate, Verified 10/17/16 23:08) Itching/Hives/Rash codeine [Codeine] Allergy (Verified 10/17/16 23:08) Hives fluphenazine enanthate [From Prolixin] Allergy (Verified 10/17/16 23:08) ARM NUMBNESS fluphenazine HCl [From Prolixin] Allergy (Verified 10/17/16 23:08) ARM NUMBNESS guaifenesin [From Prolex D] Allergy (Verified 10/17/16 23:08) Hives lisinopril Allergy (Verified 04/21/17 10:26) Anaphylaxis morphine Allergy (Verified 10/01/20 10:03) Itching Penicillins Allergy (Verified 10/17/16 23:08) Hives phenylephrine HCl [From Prolex D] Allergy (Verified 10/17/16 23:08) Hives nitrofurantoin Adverse Reaction (Verified 08/07/17 23:41) liver failure Home Medications: Furosemide [Lasix*] 80 mg PO BID 09/30/20 Buspirone HCl [Buspar] 1 tab PO BID 08/22/21 Diphenhydramine [Benadryl*] 25 mg PO Q6HP PRN #30 tab 09/10/21 Quetiapine Fumarate [Seroquel] 100 mg PO BEDTIME 10/09/21 Pantoprazole [Protonix Tab*] 40 mg PO DAILY #30 tab 03/25/22 Amlodipine [Norvasc*] 5 mg PO BID #60 tab 09/10/22 Ascorbate Calcium [Vitamin C] 500 mg PO BID #60 tab 09/10/22 Aspirin Chewable [Aspirin Chewable*] 81 mg PO DAILY #30 tab.chew 09/10/22 Calcitrol [Rocaltrol*] 0.5 mcg PO DAILY #60 cap 09/10/22 Clopidogrel Bisulfate [Plavix*] 75 mg PO DAILY #30 tab 09/10/22 Divalproex Sodium [Depakote] 1 tab PO BID #60 tab 09/10/22 Doxazosin [Cardura*] 2 mg PO BID #60 tab 09/10/22 Folic Acid/Vit B Complex and C [Dialyvite 800 Chewable Wafer] 800 mcg PO DAILY #30 tab.chew 09/10/22 Hydralazine HCl 50 mg PO TID #90 tab 09/10/22 Losartan Potassium [Cozaar*] 50 mg PO BID #60 tablet 09/10/22 Metoclopramide [Reglan*] 5 ml PO TID PRN #150 ml 09/10/22 Metoprolol Succinate [Toprol Xl*] 25 mg PO BID #60 tab 09/10/22 Nepro Shake [Nepro*] 237 ml PO TID #90 can 09/10/22 Pregabalin 25 mg PO DAILY #30 tab 09/10/22 Vitamin D [Drisdol*] 50,000 unit PO Q7D #4 cap 09/10/22 - Past Medical/Surgical History Diabetic: Yes -: Chronic Diastolic CHF -: ESRD on HD (Dr. Morin) -: Gastroporesis -: DM II with CKD, Polyneuropathy, Gastroparesis -: Obesity -: Schizoaffective Disorder -: HTN -: Post Traumatic Stress Disorder -: Hypertension -: Post traumatic stress disorder -: Schizoaffective disorder -: CHF, diastolic -: x 2 -: Tubal ligation -: Stents RUE, RLE & subclavian -: Right groin "aneurysm" -: RUE fistula for dialysis -: RUE fistula for dialysis Psychosocial/ Personal History: She is , she has 2 children, she does not work. She lives with her boyfriend and daughter. - Family History Mother -: Hypertension, Diabetes, Cancer, Other (see notes) Notes: hypothyroid, asthma, breast cancer Father -: Diabetes, Cancer Notes: - stomach/ lung/ prostate cancer, diabetes - Social History Alcohol use: No CD- Drugs: No Caffeine use: No Review of Systems 10-point ROS is otherwise unremarkable General: As per HPI Physical Examination - Physical Exam General: In no apparent distress, Oriented x3, Oriented x2 HEENT: Atraumatic, Normocephalic, PERRLA, Other (Missing teeth) Neck: Supple, 2+ carotid pulse no bruit Respiratory: Clear to auscultation bilaterally, Normal air movement Cardiovascular: Regular rate/rhythm, Normal S1 S2, Other (+1-2 right lower extremity edema) Capillary refill: <2 Seconds Gastrointestinal: Normal bowel sounds, Tenderness (Right upper quadrant tenderness) Musculoskeletal: No clubbing, No swelling Integumentary: No rashes, No breakdown Neurological: Normal speech, Normal strength at 5/5 x4 extr, Cranial nerves 3-12 intact - Studies Laboratory Data (last 24 hrs) 12/25/22 15:25: Sodium 137, Potassium 4.2, BUN 37 H, Creatinine 9.11 H, Glucose 120 H, Total Bilirubin 0.7, AST 21, ALT 13, Alkaline Phosphatase 61, Lipase 20 12/25/22 15:25: WBC 2.70 L, Hgb 9.3 L, Hct 28.3 L, Plt Count 124 L Assessment and Plan - Plan Assessment/plan Abdominal pain secondary to cholecystitis, gallstones End-stage renal disease on hemodialysis with noncompliance Hypertension Anemia of chronic disease. Schizophrenia\\PTSD. DM2 with neuropathy. Gastroparesis. Thrombocytopenia. Nicotine dependence. Nausea and vomiting. DVT prophylaxis with SCDs. Assessment/plan -Abdominal pain secondary to cholecystitis, gallstones Surgery consult , NPO, PRN aniemetics -Prior abdominal ultrasound 12/10/2022, multiple gallstones up to 8 mm in size, mild gallbladder thickening, at 4 mm, common bile duct is measuring 4 mm, -cholelithiasis with gallbladder thickening and suspicious for cholecystitis -End-stage renal disease on hemodialysis with noncompliance ESRD. Patient on MWF schedule. Nephrology consulted. Further management per financial advisor trainee. -Hypertension. Stable. We will continue home medications. -Anemia of chronic disease. H&H stable. We will continue to monitor hemoglobin and transfuse if less than 7.0. -Schizophrenia\\PTSD. Continue home medications. -DM2 with neuropathy. BS monitoring with sliding scale insulin. Continue Lyrica for neuropathy. -Dialysis schedule per financial advisor trainee. Daily weight and strict I/O. -Gastroparesis. Continue home medication. -Thrombocytopenia. Unclear etiology. Continue supportive care. -Nicotine dependence. Patient counseled on tobacco cessation. Refuses nicotine patch. DVT prophylaxis with SCDs. Diet NPO Full Code Discharge Plan: Home Plan to discharge in: 48 Hours - Advance Directives Does patient have a Living Will: No Does patient have a Durable POA for Healthcare: Yes - Code Status/Comfort Care Code Status: Full Code Physician Review: Patient Assessed, Agree with Above Assessment and Plan Critical Care: No Time Spent Managing Pts Care (In Minutes): 55
--- NOTE | 2022-12-25 17:41 | P.CNS ---
Date of Consult: 12/25/22 Reason for Consult: ESRD, missed HD, elevated BP Requesting Physician: Hugh Stallworth Chief Complaint: Abdominal pain History of Present Illness: Patient is a 42 yo female with a past medical history significant for ESRD, malignant hypertension, chronic DM, gastropareiesis, schizophrenia, frequent hospitalizations and other. Pt has had recent admissions for abdominal pain, nausea and vomiting and presents again with reports of upper abdominal pain, recurrent nausea and vomiting of bile, anorexia and other. There has been concern regarding her GB which has shown on both CT and u/s imaging gall stones, some wall thickening and fluid. Allergies zolpidem tartrate [From Ambien] Allergy (Intermediate, Verified 10/17/16 23:08) Itching/Hives/Rash codeine [Codeine] Allergy (Verified 10/17/16 23:08) Hives fluphenazine enanthate [From Prolixin] Allergy (Verified 10/17/16 23:08) ARM NUMBNESS fluphenazine HCl [From Prolixin] Allergy (Verified 10/17/16 23:08) ARM NUMBNESS guaifenesin [From Prolex D] Allergy (Verified 10/17/16 23:08) Hives lisinopril Allergy (Verified 04/21/17 10:26) Anaphylaxis morphine Allergy (Verified 10/01/20 10:03) Itching Penicillins Allergy (Verified 10/17/16 23:08) Hives phenylephrine HCl [From Prolex D] Allergy (Verified 10/17/16 23:08) Hives nitrofurantoin Adverse Reaction (Verified 08/07/17 23:41) liver failure Home Medications: Furosemide [Lasix*] 80 mg PO BID 09/30/20 Buspirone HCl [Buspar] 1 tab PO BID 08/22/21 Diphenhydramine [Benadryl*] 25 mg PO Q6HP PRN #30 tab 09/10/21 Quetiapine Fumarate [Seroquel] 100 mg PO BEDTIME 10/09/21 Pantoprazole [Protonix Tab*] 40 mg PO DAILY #30 tab 03/25/22 Amlodipine [Norvasc*] 5 mg PO BID #60 tab 09/10/22 Ascorbate Calcium [Vitamin C] 500 mg PO BID #60 tab 09/10/22 Aspirin Chewable [Aspirin Chewable*] 81 mg PO DAILY #30 tab.chew 09/10/22 Calcitrol [Rocaltrol*] 0.5 mcg PO DAILY #60 cap 09/10/22 Clopidogrel Bisulfate [Plavix*] 75 mg PO DAILY #30 tab 09/10/22 Divalproex Sodium [Depakote] 1 tab PO BID #60 tab 09/10/22 Doxazosin [Cardura*] 2 mg PO BID #60 tab 09/10/22 Folic Acid/Vit B Complex and C [Dialyvite 800 Chewable Wafer] 800 mcg PO DAILY #30 tab.chew 09/10/22 Hydralazine HCl 50 mg PO TID #90 tab 09/10/22 Losartan Potassium [Cozaar*] 50 mg PO BID #60 tablet 09/10/22 Metoclopramide [Reglan*] 5 ml PO TID PRN #150 ml 09/10/22 Metoprolol Succinate [Toprol Xl*] 25 mg PO BID #60 tab 09/10/22 Nepro Shake [Nepro*] 237 ml PO TID #90 can 09/10/22 Pregabalin 25 mg PO DAILY #30 tab 09/10/22 Vitamin D [Drisdol*] 50,000 unit PO Q7D #4 cap 09/10/22 - Past Medical/Surgical History Diabetic: Yes -: Chronic Diastolic CHF -: ESRD on HD (Dr. Morin) -: Gastroporesis -: DM II with CKD, Polyneuropathy, Gastroparesis -: Obesity -: Schizoaffective Disorder -: HTN -: Post Traumatic Stress Disorder -: Hypertension -: Post traumatic stress disorder -: Schizoaffective disorder -: CHF, diastolic -: x 2 -: Tubal ligation -: Stents RUE, RLE & subclavian -: Right groin "aneurysm" -: RUE fistula for dialysis -: RUE fistula for dialysis Psychosocial/ Personal History: She is , she has 2 children, she does not work. She lives with her boyfriend and daughter. - Family History Mother Medical History: Hypertension, Diabetes, Cancer, Other (see notes) Notes: hypothyroid, asthma, breast cancer Father Medical History: Diabetes, Cancer Notes: - stomach/ lung/ prostate cancer, diabetes - Social History Smoking Status: Current some day smoker Alcohol use: No CD- Drugs: No Caffeine use: No Review of Systems General: Malaise Cardiovascular: Other (Elevated BP), As per HPI Gastrointestinal: Nausea, Vomiting, Abdominal Pain, As per HPI Musculoskeletal: Back Pain Physical Examination General: Alert, Cooperative HEENT: Atraumatic, Normocephalic, Other (Poor oral dentition) Neck: Supple Respiratory: Normal air movement, Other (No rales or rhonchi) Cardiovascular: No edema, Regular rate/rhythm, Normal S1 S2 Gastrointestinal: Non-distended, No guarding, Other (RUQ TTP) Musculoskeletal: No contractures, No erythema, No tenderness, Other (Rt UE AVF) Integumentary: Other (Diabetic dermopathy ) Neurological: Normal speech, Normal tone, Normal affect Laboratory Data (last 24 hrs) 12/25/22 15:25: Sodium 137, Potassium 4.2, BUN 37 H, Creatinine 9.11 H, Glucose 120 H, Total Bilirubin 0.7, AST 21, ALT 13, Alkaline Phosphatase 61, Lipase 20 12/25/22 15:25: WBC 2.70 L, Hgb 9.3 L, Hct 28.3 L, Plt Count 124 L Conclusions/Impression: A/P) ESRD on HD MWF -Missed HD Wed, despite that no sig metab derangements, will arrange for HD his evening or tmrw AM based on equity research analyst availability HTN with CKD/ CHF. Labile pressures, accelerated -Monitor BP closely, order PRN hydralazine Diastolic CHF, chronic -Monitor fluid status closely, no significant hypervolemia currently on exam, left under EDW on Mon, has had N/V/anorexia this week Abdominal pain unspecified. N/V Chronic cholecystitis signs on imaging, will f/u gen surgery reccs, Abx per them/IM, dose for reduced CrCl Walker Yusuf MD, RYANN
[2022-12-25] MEDS: ONDANSETRON 4 MG/2 ML VIAL IV PRN (19:30)
[2022-12-25] MEDS: PIPER TAZO 3.375 GM in NA CHLORIDE 0.9% 100 ML IV SCH (20:38)
[2022-12-25] MEDS: INSULIN -REGULAR HUMAN 50 UNIT/0.5 ML ML SQ SCH (20:42)
[2022-12-25] MEDS: DIPHENHYDRAMINE 50 MG/ML VIAL IV PRN (20:47)
[2022-12-25] MEDS: HYDRALAZINE HCL 20 MG/ML VIAL IV PRN (22:17)
[2022-12-26] MEDS: HYDRALAZINE HCL 20 MG/ML VIAL IV PRN ×2 (04:29→16:16)
[2022-12-26] MEDS ORDERED: HYDROMORPHONE HCL 0.5 MG/0.5 ML INJ IV ONE (05:55)
[2022-12-26] MEDS: ONDANSETRON 4 MG/2 ML VIAL IV PRN ×2 (06:25→15:44)
[2022-12-26 06:46] LABS: Absolute Lymphocytes (CBC) 0.7 K/uL (0.7-4.9); Hematocrit 26.9 % (36.0-45.0); Lymphocytes % 28.8 % (15.3-44.8); MCV 91.2 fL (80-100); MPV 10.3 fL (7.6-11.3); RBC Red Blood Cell Count 2.95 M/uL (3.86-4.86)
--- NOTE | 2022-12-26 06:46 | P.PN ---
Date of Service: 12/26/22 Subjective: doing okay today, afebrile abd pain/nausea last night, ok this morning given zosyn overnight, has allergy - feels itchy this morning; zelda helped states she was at [facility] ~1-2 weeks ago, had echo/HIDA/Cath, thinks she got coronary stents done ROS: 10 point ROS as noted above, otherwise negative Physical Exam: GEN: Alert, oriented, poor dentition HEENT: Normal conjunctiva, sclera anicteric CV: Regular rate and rhythm, 1+ lower extremity edema Pulm: Nonlabored respirations on room air ABD: Soft, RUQ tenderness, nondistended Neuro: Normal speech, normal affect vitals reviewed Problem List: Cholecystitis, Cholelithiasis; without evidence of choledocholithiasis Biliary dyskinesia ESRD on HD Diastolic CHF, chronic Anemia of chronic disease NIDDM2 with neuropathy Hypertension Schizophrenia\PTSD Gastroparesis Thrombocytopenia, chronic Nicotine dependence Cholecystitis, Cholelithiasis; without evidence of choledocholithiasis Abdominal u/s (12/25): cholelithiasis with gallbladder wall thickening, suspicious for cholecystitis recent HIDA done at [facility] noted 15-18% ejection fraction General Surgery consulted give liquid diet/low-fat diet if tolerates today Needs cardiac and nephro clearance, to undergo HD today pt with penicillin allergy, Zosyn DCd Patient reports getting echocardiogram and cardiac catheterization at [facility] in the last 1-2 weeks. She thinks she had stenting placed, denies any new prescriptions for antiplatelet therapy, and is chronically on Eliquis Patient's mother does not think she had stenting placed, but she is not certain Patient unable to provide medical records, will request records from [facility] And unable to access HIDA, Doppler ultrasound of her right groin -which she states if she developed right groin swelling after they did a heart cath HIDA as noted above, ultrasound concerning for AV fistula between common femoral vein and proximal sueprficial femoral artery I do not have access to any progress note/discharge summary/procedure notes, so I cannot confirm what was done (please see separate note dated 12/26/22 by me, with scans of reports available to me at this time) Cardiology consulted for surgical clearance ESRD on HD missed Dialysis Wednesday MWF schedule Nephrology consulted Anemia of chronic disease. H&H stable. transfuse if hgb < 7 NIDDM2 with neuropathy. SSI, Continue Lyrica for neuropathy. Hypertension Schizophrenia\PTSD Gastroparesis Continue home medications. Thrombocytopenia Chronic Nicotine dependence Patient counseled on tobacco cessation. Refuses nicotine patch. VTE: SCD for possible surgery Code: Full Dispo: Home, 2-3 days pending date of surgery/recovery
[2022-12-26] MEDS: DIPHENHYDRAMINE 50 MG/ML VIAL IV PRN ×3 (07:04→20:44)
[2022-12-26 07:06] LABS: Magnesium 2.1 mg/dL (1.6-2.4); Potassium 4.7 mEq/L (3.5-5.1)
[2022-12-26 07:21] LABS: Albumin 3.4 g/dL (3.4-5.0); Bilirubin Direct 0.2 mg/dL (0-0.2); Bilirubin Indirect, Calculated 0.3 mg/dL (0.2-0.8); Bilirubin Total 0.5 mg/dL (0.2-1.0); Protein, Total 6.5 g/dL (6.4-8.2)
[2022-12-26] MEDS: INSULIN -REGULAR HUMAN 50 UNIT/0.5 ML ML SQ SCH ×4 (07:30→20:45)
[2022-12-26] MEDS: PIPER TAZO 3.375 GM in NA CHLORIDE 0.9% 100 ML IV SCH ×2 (08:00→08:26)
[2022-12-26 08:33] LABS: Anisocytosis 1+; Blood Morphology Comment NOTED (NOT SEEN); Platelet Estimate DECR; Polychromasia 1+; White Blood Cell Scan OK (OK)
[2022-12-26 11:49] LABS: Hepatitis B surface AG Interp. Nonreactive (Nonreactive)
--- NOTE | 2022-12-26 12:38 | P.PN ---
Date of Service: 12/26/22 Radiology Progress Note: Echo (12/12/22) done at [facility] HIDA (12/15/22) done at [facility] Lower extremity U/S (12/15): done at [facility]
--- NOTE | 2022-12-26 13:26 | P.PN ---
(S) Pt seen on HD, tolerating session, did experience abd pain earlier this AM, still nauseous but no active vomiting (O) Vitals reviewed in the EMR Physical Examination General: Alert, Cooperative HEENT: Atraumatic, Normocephalic, Other (Poor oral dentition) Neck: Supple Respiratory: Normal air movement, Other (No rales or rhonchi) Cardiovascular: No edema, Regular rate/rhythm, Normal S1 S2 Gastrointestinal: Non-distended, No guarding, Other (RUQ TTP) Musculoskeletal: No contractures, No erythema, No tenderness, Other (Rt UE AVF) Integumentary: Other (Diabetic dermopathy ) Neurological: Normal speech, Normal tone, Normal affect Laboratory Data (last 24 hrs) Reviewed Conclusions/Impression: A/P) ESRD on HD MWF -Missed HD Wed and Wed, despite that no sig metab derangements on admission yesterday, dialyzing today for metab clearance and UF as tolerated. HTN with CKD/ CHF. Labile pressures, accelerated -F/u post HD BP, with N/V recurrent, will hold off on her other BP meds and use PRN Hydralazine and or Labetalol Diastolic CHF, chronic -Monitor fluid status closely, no significant hypervolemia currently on exam, left under EDW on Mon, has had N/V/anorexia this week -Reports of recent LHC, will need to obtain records and clarify PCI/SHANIKA performed. Abdominal pain unspecified. N/V Chronic cholecystitis signs on imaging, will f/u gen surgery reccs, LFTs ok, Abx per them/IM, dose for reduced CrCl Walker Yusuf MD, ELENA
[2022-12-26] MEDS: DOXAZOSIN 2 MG TAB PO SCH ×2 (14:10→20:43)
[2022-12-26] MEDS: DIVALPROEX DR 500MG TAB PO SCH ×2 (14:10→20:44)
[2022-12-26] MEDS: AMLODIPINE 5 MG TAB PO SCH ×2 (14:13→20:44)
[2022-12-26] MEDS: METOPROLOL XL 25 MG TAB PO SCH ×2 (14:13→20:44)
[2022-12-26] MEDS: BUSPIRONE HCL 15 MG TABLET PO SCH ×2 (14:13→21:00)
[2022-12-26] MEDS: METRONIDAZOLE 500mg IVPB 500 MG/100 ML BAG IV SCH ×2 (14:14→22:17)
[2022-12-26] MEDS: CIPROFLOXACIN 400mg IV 400 MG/200 ML BAG IV SCH (14:51)
--- NOTE | 2022-12-26 17:02 | P.CNS ---
Date of Consult: 12/26/22 PC: I was asked to see this 42-year-old female in regards to right upper quadrant abdominal pain. HPC: This diabetic, end-stage renal disease patient with a long history of gastroparesis has been complaining of right upper quadrant abdominal pain for the last few months. Recently had a work-up was transferred to another facility where she received some cardiac stents, and was told that her gallbladder was fine. She presents now however with abdominal pain. PSHx: Previous x2, cardiac stents about 2 weeks ago. PMHx: Hypertension, on dialysis, Social Hx: Long list of allergies which have been noted. Sys R: No cough, wheeze, shortness of breath. Says she gets nauseous after she eats. Says this has been like this for the last couple of months. She works with a anesthesiologist assistant on this problem. Has not had any evidence of any jaundice, or change in color of stools. O/E: Awake alert vital signs are stable, not in much pain at the moment. HEENT: Lost an eye a few years ago. Chest: Chest movement equal bilaterally Abd: Abdomen mildly distended, soft to palpation, with no guarding or rebound. [Has some bruising over the lower abdomen, consistent with recent cath] Carrizozo: Groin hematoma Data: Ultrasound shows a freely floating gallstone, with some mild thickness of the gallbladder wall. Impression: Chronic cholecystitis with cholelithiasis. Gastric paresis. Plan: The patient is stable, and only 2 weeks out from recent cardiac cath with stent placement. She still has some significant bruising. She does not appear to be in an acute episode requiring emergent therapy. We have try to get some notes from her recent hospitalization at another facility. In the meantime, she will get some pain medicine, some antibiotics. She has a anesthesiologist assistant who she works with on a regular basis. We will ask for a consult as well. I explained to her that she has possible chronic gallbladder disease, there is a stone in her gallbladder. At the current time I do not feel that she requires emergent intervention. Continue current therapy
[2022-12-26] MEDS: HYDROMORPHONE HCL 0.5 MG/0.5 ML INJ IV PRN (17:25)
--- NOTE | 2022-12-26 19:28 | CON ---
Date of Consultation: 12/26/2022 Reason For Consultation: Cardiac preop risk assessment. History Of Present Illness: The patient is a 42-year-old female, history of end-stage renal disease, on hemodialysis, diabetes, coronary artery disease, congestive heart failure, seizure disorder, pres ented to the emergency room with abdominal pain, nausea, vomiting, found to have gallbladder disease, hence I was asked to evaluate her for preop cardiac risk. She claims that she has history of morales ry artery disease and at [facility] she had 2 cardiac stents placed very recently for which she was placed on aspirin and Plavix, but for the past 2-3 days, she is not able to take the Plavix rodriguez use she is vomiting. Denies any chest pain. Past Medical History: Extensive. Refer to the [facility] for the detailed past medical history. Medications: Refer to reconciliation sheet for detailed list. Medication list reviewed. Allergies: SHE IS ALLERGIC TO CODEINE, AMBIEN, LISINOPRIL, MORPHINE, PENICILLIN, PHENYLEPHRINE, AND NITROFURANTOIN. Family History: No premature coronary artery disease or cancer. Social History: She is an ex-smoker. Does not drink or use any drugs. Review of Systems: All systems reviewed and they were negative except what is mentioned in HPI. Physical Examination: Vital Signs: Reviewed. Head and Neck: Pupils are equal, reactive to light. Intact eye movements. No JVD. No cervical lym phadenopathy. Neck: Supple. Thyroid is not enlarged. Lungs: Clear to auscultation bilaterally. No rhonchi, wheezing, or crackles. No accessory muscle u se. Heart: Regular rate and rhythm. No extra sounds. Abdomen: Soft, nontender. Bowel sounds positive. No organomegaly. No masses or hernia. No rigidi ty. Extremities: No edema, clubbing, or cyanosis. Intact pulses. Skin: No rashes. Neurologic: Alert, awake, and oriented x3. No focal deficits appreciated. Investigations: BUN is 41, creatinine 9.6, hemoglobin is 8.8, white blood cell count is 2.4. Assessment And Recommendations: 1.Cardiac preop risk assessment. The patient had a percutaneous coronary intervention with 2 stents placement recently at [facility]. She is definitely at high cardiac risk for surgery, especia lly the fact that dual anti-platelet needs to be held if this surgery is emergent, then to proceed wi th this risk at which point I would recommend anticoagulation with heparin right until the time of th e surgery and then to resume it as soon as feasible after surgery along with loading dose of Plavix r ight after the surgery, and baby aspirin. I will monitor the patient while she is in the hospital, b ut definitely I would start her on anticoagulation and dual antiplatelet therapy as soon as the surge ry is done. 2.Hypertension. Blood pressure is elevated. Resume home medications. Adjust as needed. 3.Dyslipidemia. Recommend Lipitor 40 mg at bedtime. Thank for the consult. /JOSEFINA Voice ID: [id number] Report ID: [id number]
[2022-12-27] MEDS: HYDRALAZINE HCL 20 MG/ML VIAL IV PRN ×2 (00:54→12:52)
[2022-12-27] MEDS: ONDANSETRON 4 MG/2 ML VIAL IV PRN ×3 (00:54→18:32)
[2022-12-27] MEDS: HYDROMORPHONE HCL 0.5 MG/0.5 ML INJ IV PRN ×3 (01:56→18:24)
[2022-12-27] MEDS: DIPHENHYDRAMINE 50 MG/ML VIAL IV PRN ×2 (03:09→20:09)
[2022-12-27] MEDS: METRONIDAZOLE 500mg IVPB 500 MG/100 ML BAG IV SCH ×3 (05:56→21:16)
[2022-12-27 06:17] LABS: Potassium 3.9 mEq/L (3.5-5.1)
[2022-12-27 06:52] LABS: Absolute Lymphocytes (CBC) 0.7 K/uL (0.7-4.9); Lymphocytes % 28.7 % (15.3-44.8); MCV 92.5 fL (80-100); MPV 10.2 fL (7.6-11.3); RBC Red Blood Cell Count 3.14 M/uL (3.86-4.86)
--- NOTE | 2022-12-27 07:19 | P.PN ---
Date of Service: 12/27/22 Subjective: doing okay, tired nausea and abdominal pain persists, ~unchanged; +afebrile 3 and 4 second run of mohit with a HR of 49 overnight otherwise no new / worsening problems ROS: 10 point ROS as noted above, otherwise negative Physical Exam: GEN: Alert, oriented, poor dentition HEENT: Normal conjunctiva, sclera anicteric CV: Regular rate and rhythm, 1+ lower extremity edema Pulm: Nonlabored respirations on room air ABD: Soft, mild RUQ tenderness, nondistended Neuro: Normal speech, normal affect vitals reviewed Problem List: Cholecystitis, Cholelithiasis; without evidence of choledocholithiasis Biliary dyskinesia ESRD on HD 2nd degree, Deo 1 (Mohit) Diastolic CHF, chronic Anemia of chronic disease NIDDM2 with neuropathy Hypertension Schizophrenia\PTSD Gastroparesis Thrombocytopenia, chronic Nicotine dependence Cholecystitis, Cholelithiasis; without evidence of choledocholithiasis Abdominal u/s (12/25): cholelithiasis with gallbladder wall thickening, suspicious for cholecystitis recent HIDA done at [facility] noted 15-18% ejection fraction General Surgery consulted liquid diet Needs cardiac and nephro clearance pt with penicillin allergy, Zosyn switched to cipro./flagyl on 12/26 Patient reports getting echocardiogram and cardiac catheterization at [facility] in the last 1-2 weeks. She thinks she had stenting placed, denies any new prescriptions for antiplatelet therapy, and is chronically on Eliquis Patient's mother does not think she had stenting placed, but she is not certain Patient unable to provide medical records, will request records from [facility] Cardiology consulted for surgical clearance recommends heparin drip - started 7.9 while getting more info nursing reports [facility] redirected to medical records office, which is closed over weekend pt noted to have 3-4 second run of 2nd degree block deo i, overnight ESRD on HD missed Dialysis Wednesday MWF schedule Nephrology consulted 2nd degreeDeo 1 (Mohit) as noted above Anemia of chronic disease. H&H stable. transfuse if hgb < 7 NIDDM2 with neuropathy. SSI, Continue Lyrica for neuropathy. Hypertension Schizophrenia\PTSD Gastroparesis Continue home medications. Thrombocytopenia Chronic Nicotine dependence Patient counseled on tobacco cessation. Refuses nicotine patch. VTE: Heparin started 12/27 Code: Full Dispo: Home, 2-3 days pending date of surgery/recovery
[2022-12-27] MEDS: INSULIN -REGULAR HUMAN 50 UNIT/0.5 ML ML SQ SCH ×4 (07:30→20:10)
[2022-12-27] MEDS: CIPROFLOXACIN 400mg IV 400 MG/200 ML BAG IV SCH (07:45)
[2022-12-27] MEDS: AMLODIPINE 5 MG TAB PO SCH ×2 (07:46→20:09)
[2022-12-27] MEDS: DOXAZOSIN 2 MG TAB PO SCH ×2 (07:47→20:10)
[2022-12-27] MEDS: METOPROLOL XL 25 MG TAB PO SCH ×2 (07:47→21:16)
[2022-12-27] MEDS: DIVALPROEX DR 500MG TAB PO SCH ×2 (07:57→20:10)
[2022-12-27] MEDS: BUSPIRONE HCL 15 MG TABLET PO SCH (07:58)
[2022-12-27 08:25] LABS: Anisocytosis 1+; Blood Morphology Comment NOTED (NOT SEEN); Ovalocytes 1+; Platelet Estimate DECR; Poikilocytosis 1+; Teardrop Cell 1+; White Blood Cell Scan LEUKOPENIA (OK)
[2022-12-27 08:40] LABS: Protime INR 1.19
[2022-12-27 10:11] VITALS: BMI 30.6
[2022-12-27] MEDS ORDERED: HEPARIN 5000 UNIT/ML 1 ML VIAL IV PRN (10:20)
[2022-12-27] MEDS: HEPARIN 5000 UNIT/ML 1 ML VIAL IV PRN (10:28)
[2022-12-27] MEDS: HEPARIN/D5W 25,000 UNIT/500 ML BAG IV PRN (10:28)
--- NOTE | 2022-12-27 18:22 | P.PN ---
Date of Service: 12/27/22 S: Patient has no specific complaints today, has been sleeping this afternoon. Told me she only required 1 pain medicine about 12 hours ago. O: Vital signs remained stable, abdomen
[2022-12-27] MEDS: BUSPIRONE HCL 5 MG TABLET PO SCH (20:09)
[2022-12-28] MEDS: HYDRALAZINE HCL 20 MG/ML VIAL IV PRN (00:08)
[2022-12-28] MEDS: ONDANSETRON 4 MG/2 ML VIAL IV PRN ×2 (03:15→09:16)
[2022-12-28] MEDS: HYDROMORPHONE HCL 0.5 MG/0.5 ML INJ IV PRN ×3 (03:16→21:06)
[2022-12-28 03:27] LABS: Absolute Lymphocytes (CBC) 0.6 K/uL (0.7-4.9); Hematocrit 28.2 % (36.0-45.0); Lymphocytes % 30.9 % (15.3-44.8); MCV 91.1 fL (80-100); MPV 9.4 fL (7.6-11.3)
[2022-12-28 04:21] LABS: Potassium 4.3 mEq/L (3.5-5.1)
[2022-12-28] MEDS: METRONIDAZOLE 500mg IVPB 500 MG/100 ML BAG IV SCH ×3 (05:41→22:11)
--- NOTE | 2022-12-28 06:43 | P.PN ---
Date of Service: 12/28/22 Subjective: episode of HR in the 30's following heart block last night, reported first degree and wenckebach abd pain and vomiting overnight not tolerating PO ROS: 10 point ROS as noted above, otherwise negative Physical Exam: GEN: Alert, oriented, poor dentition HEENT: Normal conjunctiva, sclera anicteric CV: Regular rate and rhythm, 1+ lower extremity edema Pulm: Nonlabored respirations on room air ABD: Soft, mild RUQ tenderness, nondistended Neuro: Normal speech, normal affect vitals reviewed Problem List: Cholecystitis, Cholelithiasis; without evidence of choledocholithiasis Biliary dyskinesia ESRD on HD 2nd degree, Mobitz 1 (Mohit) Diastolic CHF, chronic Anemia of chronic disease NIDDM2 with neuropathy Hypertension Schizophrenia\PTSD Gastroparesis Thrombocytopenia, chronic Nicotine dependence Cholecystitis, Cholelithiasis; without evidence of choledocholithiasis Abdominal u/s (12/25): cholelithiasis with gallbladder wall thickening, suspicious for cholecystitis recent HIDA done at [facility] noted 15-18% ejection fraction General Surgery consulted liquid diet Needs cardiac and nephro clearance pt with penicillin allergy, Zosyn switched to cipro./flagyl on 12/26 uncertain if patient would benefit from cholecystectomy, has chronic abd pain, coudld be multifactorial Patient reports getting echocardiogram and cardiac catheterization at [facility] in the last 1-2 weeks. She thinks she had stenting placed, denies any new prescriptions for antiplatelet therapy, and is chronically on Eliquis Patient's mother does not think she had stenting placed, but she is not certain Patient unable to provide medical records, requested records from [facility] returned call - expected to get back to us tomorrow 12/29 Cardiology consulted for surgical clearance due to inability to confirm, and patient adamant she had stents, Dr. Mcnally recommended heparin drip - started . while getting more info stopped overnight d/t not being able to get lab draw as well as new IV nursing reports [facility] redirected to medical records office, which is closed over weekend 12/28 - records still unavailable pt noted to have 3-4 second run of 2nd degree block mobitz 1, 12/27 cardiology aware GI consulted 12/[address] Ortega d/t RUQ pain, biliary dyskinesia, gastroparesis, +worsening N/V ESRD on HD missed Dialysis Wednesday MWF schedule Nephrology consulted HD today 2nd degree, Mobitz 1 (Mohit) as noted above Anemia of chronic disease. H&H stable. transfuse if hgb < 7 NIDDM2 with neuropathy. SSI, Continue Lyrica for neuropathy. Hypertension Schizophrenia\PTSD Gastroparesis Continue home medications. Thrombocytopenia Chronic Nicotine dependence Patient counseled on tobacco cessation. Refuses nicotine patch. VTE: Heparin on hold Code: Full Dispo: Home, 2-3 days pending date of surgery/recovery
[2022-12-28] MEDS: INSULIN -REGULAR HUMAN 50 UNIT/0.5 ML ML SQ SCH ×4 (07:30→21:00)
[2022-12-28] MEDS: DIVALPROEX DR 500MG TAB PO SCH ×2 (08:15→21:05)
[2022-12-28] MEDS: DOXAZOSIN 2 MG TAB PO SCH ×2 (08:15→21:04)
[2022-12-28] MEDS: METOPROLOL XL 25 MG TAB PO SCH ×2 (08:15→21:04)
[2022-12-28] MEDS: BUSPIRONE HCL 5 MG TABLET PO SCH ×2 (08:16→21:04)
[2022-12-28] MEDS: AMLODIPINE 5 MG TAB PO SCH ×2 (08:16→21:05)
[2022-12-28] MEDS: CIPROFLOXACIN 400mg IV 400 MG/200 ML BAG IV SCH (08:18)
--- NOTE | 2022-12-28 10:43 | P.PN ---
Date of Service: 12/28/22 Vital Signs Temp Pulse Resp BP Pulse Ox 97.3 F 56 22 H 156/74 H 98 12/28/22 08:00 12/28/22 08:16 12/28/22 10:27 12/28/22 08:16 12/28/22 10:27 Medications Amlodipine Besylate (Amlodipine 5 Mg Tab) 5 mg PO BID [facility] Last Admin: 12/28/22 08:16 Dose: 5 mg Buspirone HCl (Buspirone Hcl 5 Mg Tablet) 15 mg PO BID [facility] Last Admin: 12/28/22 08:16 Dose: 15 mg Diphenhydramine HCl (Diphenhydramine 50 Mg/Ml Vial) 25 mg IV Q6H PRN PRN Reason: ITCHING Last Admin: 12/27/22 20:09 Dose: 25 mg Divalproex Sodium (Divalproex Dr 500mg Tab) 500 mg PO BID [facility] Last Admin: 12/28/22 08:15 Dose: 500 mg Doxazosin Mesylate (Doxazosin 2 Mg Tab) 2 mg PO BID [facility] Last Admin: 12/28/22 08:15 Dose: 2 mg Heparin Sodium (Porcine) (Heparin 5000 Unit/Ml 1 Ml Vial) 4,400 unit IV PRN PRN PRN Reason: HEPARIN RE-BOLUS ACS PROTOCOL Last Admin: 12/27/22 10:28 Dose: 4,400 unit Hydralazine HCl (Hydralazine Hcl 20 Mg/Ml Vial) 10 mg IV Q4HP PRN PRN Reason: FOR SBP>160 OR DBP>100 MMHG Last Admin: 12/28/22 00:08 Dose: 10 mg Hydromorphone HCl (Hydromorphone Hcl 0.5 Mg/0.5 Ml Inj) 0.5 mg IV Q4H PRN PRN Reason: Pain scale 8-10 (Severe) Last Admin: 12/28/22 09:57 Dose: 0.5 mg Ciprofloxacin/Dextrose (Cipro 400 Mg/200 Ml Ivpb (Premix)) 400 mg in 200 mls @ 200 mls/hr IV DAILY NOHEMI; Protocol Last Admin: 12/28/22 08:18 Dose: 200 mls Metronidazole/Sodium Chloride (Flagyl 500mg/100 Ml Iv Premix) 500 mg in 100 mls @ 200 mls/hr IV Q8H NOHEMI; Protocol Last Admin: 12/28/22 05:41 Dose: 100 mls Heparin Sodium/Dextrose (Heparin Drip 25,000 Units/5oo Ml Premix) 25,000 unit in 500 mls @ 0 mls/hr IV UD PRN; Protocol PRN Reason: Heparin Protocol Last Admin: 12/27/22 10:28 Dose: 500 mls Insulin Human Regular (Insulin -Regular Human 50 Unit/0.5 Ml Ml) 0 unit SQ ACHS [facility]; Protocol Last Admin: 12/28/22 07:30 Dose: Not Given Metoprolol Succinate (Metoprolol Xl 25 Mg Tab) 25 mg PO BID [facility] Last Admin: 12/28/22 08:15 Dose: 25 mg Ondansetron HCl (Ondansetron 4 Mg/2 Ml Vial) 4 mg IV Q6HP PRN PRN Reason: NAUSEA / VOMITING Last Admin: 12/28/22 09:16 Dose: 4 mg Promethazine HCl (Promethazine 25 Mg Tablet) 25 mg PO Q6HP PRN PRN Reason: NAUSEA / VOMITING Last Admin: 12/26/22 17:25 Dose: 25 mg Promethazine HCl (Promethazine Inj 25 Mg/Ml Amp) 6.25 mg IV Q4H PRN PRN Reason: NAUSEA / VOMITING Sodium Chloride (Flush Normal Saline 10 Ml) 10 ml IV BID [facility] Last Admin: 12/28/22 08:18 Dose: 10 ml Assessment/ Plan: Nephrology Moderate, persistent abdominal pain this morning with malaise, nausea and vomiting No dyspnea No chest pain Vitals, medications, blood work and imaging reviewed in the chart Mild to moderate distress this morning. NCAT. Neck supple. Normal respiratory effort. RRR. Tender abd. No C/C/E. No rash. AAO. Normal speech. ESRD on HD MWF -Acute HD as ordered Hyponatremia -HD TIW HTN with CKD/ CHF -Continue Metoprolol & Doxazosin -Continue Amlodipine Diastolic CHF, chronic -Low sodium diet -Daily weight -HD with UF as ordered DM II with CKD -RISS Anemia in CKD Pancytopenia -Retacrit TIW CKD MBD -Start Ergo -Restart binders as indicated Abdominal pain -Follow up with surgery Case reviewed with Dr. Stallworth
[2022-12-28] MEDS ORDERED: NA CHLORIDE 0.9% 50 ML IV PRN (11:17)
--- NOTE | 2022-12-28 15:34 | P.PN ---
Date of Service: 12/28/22 S: Patient basically the same, no real changes. O: No real complaints of pain today A: This patient, presented with possible cholecystitis and the need for a laparoscopic cholecystectomy. She had had a procedure done at another facility where she had been transferred for potential gallbladder surgery. She ended up apparently getting 2 stents but she is not certain if she did not despite the stigmata of where she had a possible catheter insertion. We are waiting for the notes for the hospital visit. This patient also has a GI who follows her in our community. We had requested a consult. P: Patient is not in crisis and while she may have chronic abdominal pain I am not 100% certain that removing her gallbladder is necessarily going to take away her pain. While she does have a low ejection fraction and stones, she does have chronic gastroparesis, diabetes, and other assorted morbidities. She is not in any crisis at the moment. Still awaiting notes from another hospital for explanation of why her gallbladder surgery was canceled and what insights they had into her clinical scenario. Patient may, if stable, be able to be discharged soon until these issues can be resolved. This could then be coordinated with her primary care physician. I will continue to see the patient and follow along with you however.
--- NOTE | 2022-12-28 19:56 | P.PN ---
Date of Service: 12/29/22 Subjective: Patient fairly lethargic. Given pain medication. Speak with general surgery. Family wanting surgery. Questionable recent cardiac catheterization with stent placement. Try to obtain records from [facility]. Vitals: Reviewed Physical Exam: GEN: Alert, oriented, poor dentition HEENT: Normal conjunctiva, sclera anicteric CV: Regular rate and rhythm, 1+ lower extremity edema Pulm: Nonlabored respirations on room air ABD: Soft, mild RUQ tenderness, nondistended Neuro: Normal speech, normal affect Problem List: 1. Cholecystitis, Cholelithiasis; without evidence of choledocholithiasis 2. Biliary dyskinesia 3. ESRD on HD 4. 2nd degree, Mobitz 1 (Mohit) 5. Diastolic CHF, chronic 6. Anemia of chronic disease 7. NIDDM2 with neuropathy 8. Hypertension 9. Schizophrenia\PTSD 10. Gastroparesis 11. Thrombocytopenia, chronic 12. Nicotine dependence PLAN 1. General surgery consultation 2. Hemodialysis per nephrology 3. Records from [facility] are needed to further assess cardiac status 4. Strict blood pressure and blood sugar control 5. Reglan for gastroparesis 6. Monitor hemodynamics 7. GI and DVT prophylaxis
[2022-12-28] MEDS: DOCUSATE NA 100 MG CAP PO SCH (21:00)
[2022-12-28] MEDS: EPOETIN ALFA 10,000 UNIT/ML VIAL SQ SCH (21:13)
[2022-12-28] MEDS ORDERED: EPOETIN ALFA-EPBX 10,000 UNIT/ML VIAL ONE (21:19)
[2022-12-28] MEDS: DIPHENHYDRAMINE 50 MG/ML VIAL IV PRN (22:20)
[2022-12-29] MEDS: ONDANSETRON 4 MG/2 ML VIAL IV PRN ×3 (01:52→23:12)
[2022-12-29] MEDS: HYDROMORPHONE HCL 0.5 MG/0.5 ML INJ IV PRN ×3 (03:10→16:49)
[2022-12-29 03:42] LABS: Hematocrit 29.1 % (36.0-45.0); MCV 91.9 fL (80-100); RBC Red Blood Cell Count 3.16 M/uL (3.86-4.86)
[2022-12-29 03:43] LABS: Absolute Lymphocytes (CBC) 0.6 K/uL (0.7-4.9); Lymphocytes % 27.3 % (15.3-44.8); MPV 9.8 fL (7.6-11.3)
[2022-12-29 04:13] LABS: AST/SGOT 11 U/L (15-37); Albumin 3.3 g/dL (3.4-5.0); Alkaline Phosphatase 55 U/L (45-117); BUN Blood Urea Nitrogen 15 mg/dL (7-18); Bicarbonate 27 mEq/L (21-32); Bilirubin Total 0.6 mg/dL (0.2-1.0); Glomerular Filtration Rate 10 ml/min (=/>90); Glucose Level 85 mg/dL (74-106); Protein, Total 6.4 g/dL (6.4-8.2); Sodium Level 136 mEq/L (136-145)
[2022-12-29 04:21] LABS: ALT/SGPT < 10 U/L (13-56)
[2022-12-29] MEDS: PROMETHAZINE INJ 25 MG/ML AMP IV PRN ×2 (04:54→11:28)
[2022-12-29] MEDS: METRONIDAZOLE 500mg IVPB 500 MG/100 ML BAG IV SCH ×3 (05:00→22:33)
[2022-12-29] MEDS: INSULIN -REGULAR HUMAN 50 UNIT/0.5 ML ML SQ SCH ×4 (07:30→20:36)
[2022-12-29] MEDS: DIVALPROEX DR 500MG TAB PO SCH ×2 (08:25→20:40)
[2022-12-29] MEDS: METOPROLOL XL 25 MG TAB PO SCH ×2 (08:25→20:34)
[2022-12-29] MEDS: DOXAZOSIN 2 MG TAB PO SCH ×2 (08:25→20:35)
[2022-12-29] MEDS: CIPROFLOXACIN 400mg IV 400 MG/200 ML BAG IV SCH (08:27)
[2022-12-29] MEDS: AMLODIPINE 5 MG TAB PO SCH ×2 (08:27→20:35)
[2022-12-29] MEDS: DOCUSATE NA 100 MG CAP PO SCH ×2 (08:27→20:34)
[2022-12-29] MEDS: BUSPIRONE HCL 5 MG TABLET PO SCH (09:00)
[2022-12-29] MEDS: BUSPIRONE HCL 15 MG TABLET PO SCH ×2 (10:54→20:40)
[2022-12-29] MEDS: DIPHENHYDRAMINE 50 MG/ML VIAL IV PRN (11:26)
[2022-12-29] MEDS ORDERED: DIPHENHYDRAMINE 25 MG TAB/CAP PO PRN (11:56)
--- NOTE | 2022-12-29 14:17 | P.PN ---
Date of Service: 12/29/22 S: No real complaints, pain appears to be controlled, she is just waiting to find out what could happen. Oh: Abdomen soft, no real guarding or tenderness. A: Patient is stable since she has been in the hospital. P: I am still waiting to hear why the patient, who was transferred to [facility] a few weeks ago and was evaluated there and was not operated on, instead they placed stents. We are still awaiting for the medical records. At the current time the patient appears to be relatively stable.
--- NOTE | 2022-12-29 20:26 | EKG ---
Test Date: 2022-12-28 Test Time: 03:28:58 Roller Turner: MALCOLM MEASUREMENT RESULTS: Intervals: Rate: 59 NH: 174 QRSD: 98 QT: 520 QTc: 514 [place]: P: 61 NH: 174 QRS: 103 T: 46 INTERPRETIVE STATEMENTS: Sinus bradycardia Rightward axis Prolonged QT Abnormal ECG Compared to ECG 11/30/2022 22:00:24 Right-axis deviation now present Prolonged QT interval now present Sinus rhythm no longer present Electronically Signed On 12-29-22 20:24:00 CDT by Juan Hogan
--- NOTE | 2022-12-29 20:46 | P.PN ---
Date of Service: 12/29/22 Vital Signs Temp Pulse Resp BP Pulse Ox 97.6 F 60 16 149/80 H 100 12/29/22 16:00 12/29/22 16:00 12/29/22 17:19 12/29/22 16:00 12/29/22 17:19 Medications Amlodipine Besylate (Amlodipine 5 Mg Tab) 5 mg PO BID [facility] Last Admin: 12/29/22 08:27 Dose: 5 mg Buspirone HCl (Buspirone Hcl 15 Mg Tablet) 15 mg PO BID [facility] Last Admin: 12/29/22 10:54 Dose: 15 mg Diphenhydramine HCl (Diphenhydramine 25 Mg Tab/Cap) 25 mg PO Q6H PRN PRN Reason: ITCHING Divalproex Sodium (Divalproex Dr 500mg Tab) 500 mg PO BID [facility] Last Admin: 12/29/22 08:25 Dose: 500 mg Docusate Sodium (Docusate Na 100 Mg Cap) 100 mg PO BID [facility] Last Admin: 12/29/22 08:27 Dose: 100 mg Doxazosin Mesylate (Doxazosin 2 Mg Tab) 2 mg PO BID [facility] Last Admin: 12/29/22 08:25 Dose: 2 mg Epoetin Vasu (Epoetin Vasu 10,000 Unit/Ml Vial) 10,000 unit SQ M,W,F [facility] Last Admin: 12/28/22 21:13 Dose: 10,000 unit Ergocalciferol (Drisdol (Vitamin D=Ergocalciferol) 58465 Unit Cap) 50,000 unit PO Q7D [facility] Heparin Sodium (Porcine) (Heparin 5000 Unit/Ml 1 Ml Vial) 4,400 unit IV PRN PRN PRN Reason: HEPARIN RE-BOLUS ACS PROTOCOL Last Admin: 12/27/22 10:28 Dose: 4,400 unit Hydralazine HCl (Hydralazine Hcl 20 Mg/Ml Vial) 10 mg IV Q4HP PRN PRN Reason: FOR SBP>160 OR DBP>100 MMHG Last Admin: 12/28/22 00:08 Dose: 10 mg Hydromorphone HCl (Hydromorphone Hcl 0.5 Mg/0.5 Ml Inj) 0.5 mg IV Q8H PRN PRN Reason: Pain scale 8-10 (Severe) Last Admin: 12/29/22 16:49 Dose: 0.5 mg Ciprofloxacin/Dextrose (Cipro 400 Mg/200 Ml Ivpb (Premix)) 400 mg in 200 mls @ 200 mls/hr IV DAILY NOHEMI; Protocol Last Admin: 12/29/22 08:27 Dose: 200 mls Metronidazole/Sodium Chloride (Flagyl 500mg/100 Ml Iv Premix) 500 mg in 100 mls @ 200 mls/hr IV Q8H NOHEMI; Protocol Last Admin: 12/29/22 16:36 Dose: 100 mls Heparin Sodium/Dextrose (Heparin Drip 25,000 Units/5oo Ml Premix) 25,000 unit in 500 mls @ 0 mls/hr IV UD PRN; Protocol PRN Reason: Heparin Protocol Last Admin: 12/27/22 10:28 Dose: 500 mls Insulin Human Regular (Insulin -Regular Human 50 Unit/0.5 Ml Ml) 0 unit SQ ACHS NOHEMI; Protocol Last Admin: 12/29/22 16:30 Dose: Not Given Metoprolol Succinate (Metoprolol Xl 25 Mg Tab) 25 mg PO BID [facility] Last Admin: 12/29/22 08:25 Dose: 25 mg Ondansetron HCl (Ondansetron 4 Mg/2 Ml Vial) 4 mg IV Q6HP PRN PRN Reason: NAUSEA / VOMITING Last Admin: 12/29/22 17:00 Dose: 4 mg Promethazine HCl (Promethazine 25 Mg Tablet) 25 mg PO Q6HP PRN PRN Reason: NAUSEA / VOMITING Last Admin: 12/26/22 17:25 Dose: 25 mg Sodium Chloride (Flush Normal Saline 10 Ml) 10 ml IV BID [facility] Last Admin: 12/29/22 08:28 Dose: 10 ml Assessment/ Plan: Nephrology Moderate, persistent abdominal pain this morning with malaise, nausea and vomiting No dyspnea No chest pain Vitals, medications, blood work and imaging reviewed in the chart Mild to moderate distress this morning. NCAT. Neck supple. Normal respiratory effort. RRR. Tender abd. No C/C/E. No rash. AAO. Normal speech. ESRD on HD MWF -Acute HD tomorrow Hyponatremia -HD TIW HTN with CKD/ CHF -Continue Metoprolol & Doxazosin -Continue Amlodipine Diastolic CHF, chronic -Low sodium diet -Daily weight -HD with UF as ordered DM II with CKD -RISS Anemia in CKD Pancytopenia -Retacrit TIW CKD MBD -Continue Ergo -Restart binders as indicated Abdominal pain -Follow up with surgery Case reviewed with Dr. Stallworth
[2022-12-29 21:30] VITALS: O2SAT 99
[2022-12-29] MEDS: DIPHENHYDRAMINE 25 MG TAB/CAP PO PRN (23:21)
[2022-12-30] MEDS: HYDROMORPHONE HCL 0.5 MG/0.5 ML INJ IV PRN ×2 (00:08→08:22)
[2022-12-30] MEDS: METRONIDAZOLE 500mg IVPB 500 MG/100 ML BAG IV SCH ×3 (05:54→22:51)
[2022-12-30] MEDS: ONDANSETRON 4 MG/2 ML VIAL IV PRN ×2 (06:09→10:53)
[2022-12-30] MEDS: HYDRALAZINE HCL 20 MG/ML VIAL IV PRN (06:13)
[2022-12-30 06:49] LABS: Potassium 4.3 mEq/L (3.5-5.1)
[2022-12-30] MEDS: INSULIN -REGULAR HUMAN 50 UNIT/0.5 ML ML SQ SCH ×4 (07:30→20:34)
[2022-12-30 08:21] LABS: Absolute Lymphocytes (CBC) 0.3 K/uL (0.7-4.9); Hematocrit 29.9 % (36.0-45.0); Lymphocytes % 15.4 % (15.3-44.8); MCV 90.9 fL (80-100); MPV 9.7 fL (7.6-11.3); RBC Red Blood Cell Count 3.29 M/uL (3.86-4.86)
[2022-12-30] MEDS: METOPROLOL XL 25 MG TAB PO SCH ×3 (08:22→20:34)
[2022-12-30] MEDS: DOCUSATE NA 100 MG CAP PO SCH ×3 (08:22→20:34)
[2022-12-30] MEDS: AMLODIPINE 5 MG TAB PO SCH ×3 (08:23→20:34)
[2022-12-30] MEDS: DIVALPROEX DR 500MG TAB PO SCH ×3 (08:23→20:33)
[2022-12-30] MEDS: DOXAZOSIN 2 MG TAB PO SCH ×3 (08:23→20:33)
[2022-12-30] MEDS: BUSPIRONE HCL 15 MG TABLET PO SCH ×3 (08:23→20:33)
[2022-12-30] MEDS: CIPROFLOXACIN 400mg IV 400 MG/200 ML BAG IV SCH ×2 (09:00→11:05)
[2022-12-30 09:32] LABS: Anisocytosis 1+; Blood Morphology Comment NOTED (NOT SEEN); Platelet Estimate DECR; White Blood Cell Scan OK (OK)
[2022-12-30 09:33] LABS: Ovalocytes 1+; Polychromasia SLIGHT
[2022-12-30] MEDS ORDERED: HYDROMORPHONE HCL 1 MG/ML INJ IV ONE (10:05)
[2022-12-30] MEDS ORDERED: SODIUM CHLORIDE 0.9% 10ML INJ IV PRN (10:07)
[2022-12-30] MEDS ORDERED: PANTOPRAZOLE 40 MG INJ IVP ONE (10:07)
[2022-12-30] MEDS ORDERED: HYDRALAZINE HCL 20 MG/ML VIAL IV ONE ×2 (10:09→15:36)
[2022-12-30] MEDS ORDERED: CLONIDINE 0.3 MG/PATCH TD SCH (10:30)
[2022-12-30 10:51] LABS: AST/SGOT 18 U/L (15-37); Albumin 3.9 g/dL (3.4-5.0); Alkaline Phosphatase 59 U/L (45-117); Bilirubin Direct 0.4 mg/dL (0-0.2); Bilirubin Indirect, Calculated 0.4 mg/dL (0.2-0.8); Bilirubin Total 0.8 mg/dL (0.2-1.0); Lipase 22 U/L (13-75); Protein, Total 7.1 g/dL (6.4-8.2)
[2022-12-30 10:54] LABS: ALT/SGPT < 10 U/L (13-56)
[2022-12-30] MEDS ORDERED: DRISDOL (VITAMIN D=ERGOCALCIFEROL) 50000 UNIT CAP PO SCH (11:00)
--- NOTE | 2022-12-30 11:43 | P.PN ---
(S) Cont to have upper abd pain, N/V episodes, endorses mild dyspnea. Family at bedside pulled up pt's chart at and discharge summary reviewed but no mention was seen of CAD, LHC or related. (O) Vitals reviewed in the EMR Physical Examination General: Alert, Cooperative HEENT: Atraumatic, Normocephalic, Other (Poor oral dentition) Neck: Supple Respiratory: Normal air movement, Other (No rales or rhonchi) Cardiovascular: No edema, Regular rate/rhythm, Normal S1 S2 Gastrointestinal: Non-distended, No guarding, Other (RUQ TTP) Musculoskeletal: No contractures, No erythema, No tenderness, Other (Rt UE AVF) Integumentary: Other (Diabetic dermopathy ) Neurological: Lethargic but awake, responds briefly, no tremors Laboratory Data (last 24 hrs) Reviewed Conclusions/Impression: A/P) ESRD on HD MWF -Cont iHD, metab profile stable, see HD orders for details HTN with CKD/ CHF. Labile pressures, accelerated -F/u post HD BP, with N/V recurrent, not holding down PO BP meds well Diastolic CHF, chronic -Monitor fluid status closely, no significant hypervolemia currently on exam -Reports of recent LHC, still awaiting records to clarify if PCI/SHANIKA performed. Abdominal pain unspecified. N/V Chronic cholecystitis signs on imaging, will f/u gen surgery reccs, LFTs ok, Abx per them/IM, dose for reduced CrCl Walker Yusuf MD, ELENA
--- NOTE | 2022-12-30 14:26 | P.PN ---
Date of Service: 12/30/22 S: Patient is basically the same, her complaint mainly is nausea at this point. Has been on Dilaudid since she came here. O: Abdomen is benign, minimal tenderness A: Patient is still here, we have been awaiting the patient's hospital reports apparently some paperwork was misplaced and is being resent P this patient, despite having cholelithiasis, is still much the same. I feel gallbladder while it shows stone, is still going to result in this patient's symptoms mainly being from her gastric paresis. Once again I explained this to the patient. Her mom was here and was anxious to speak to me however when I made to the room she was not here I will try again tomorrow to catch her.
[2022-12-30] MEDS: HYDROMORPHONE HCL 1 MG/ML INJ IV PRN ×2 (15:01→20:33)
[2022-12-30] MEDS ORDERED: FAMOTIDINE 20 MG/2 ML VIAL IV ONE (15:23)
[2022-12-30] MEDS: HEPARIN 5000 UNIT/ML 1 ML VIAL IV PRN (20:10)
[2022-12-30] MEDS: HEPARIN/D5W 25,000 UNIT/500 ML BAG IV PRN (20:11)
[2022-12-30] MEDS: EPOETIN ALFA 10,000 UNIT/ML VIAL SQ SCH (20:33)
[2022-12-30] MEDS: DIPHENHYDRAMINE 25 MG TAB/CAP PO PRN (20:34)
[2022-12-30] MEDS: PANTOPRAZOLE 40 MG INJ IVP SCH (20:38)
[2022-12-30] MEDS ORDERED: hydrOXYzine HCL 25 MG TAB PO ONE (23:54)
[2022-12-31] MEDS: HYDROMORPHONE HCL 1 MG/ML INJ IV PRN ×3 (00:47→18:49)
[2022-12-31] MEDS: ONDANSETRON 4 MG/2 ML VIAL IV PRN ×2 (00:47→10:58)
[2022-12-31] MEDS ORDERED: QUETIAPINE 25 MG TAB PO ONE (01:12)
[2022-12-31] MEDS: DIPHENHYDRAMINE 25 MG TAB/CAP PO PRN ×2 (01:38→22:03)
[2022-12-31] MEDS: METRONIDAZOLE 500mg IVPB 500 MG/100 ML BAG IV SCH ×3 (06:00→21:40)
[2022-12-31] MEDS: INSULIN -REGULAR HUMAN 50 UNIT/0.5 ML ML SQ SCH ×4 (07:30→21:00)
[2022-12-31] MEDS: DIVALPROEX DR 500MG TAB PO SCH ×2 (08:56→21:38)
[2022-12-31] MEDS: PANTOPRAZOLE 40 MG INJ IVP SCH ×2 (08:56→21:39)
[2022-12-31] MEDS: DOCUSATE NA 100 MG CAP PO SCH ×2 (08:58→21:00)
[2022-12-31] MEDS: AMLODIPINE 5 MG TAB PO SCH ×2 (08:58→21:37)
[2022-12-31] MEDS: CIPROFLOXACIN 400mg IV 400 MG/200 ML BAG IV SCH ×2 (08:59→09:00)
[2022-12-31] MEDS: METOPROLOL XL 25 MG TAB PO SCH ×3 (08:59→21:48)
[2022-12-31] MEDS: BUSPIRONE HCL 15 MG TABLET PO SCH ×2 (09:03→21:37)
[2022-12-31] MEDS: DOXAZOSIN 2 MG TAB PO SCH ×2 (09:07→21:38)
[2022-12-31] MEDS: METOCLOPRAMIDE 10 MG/2mL INJ IV SCH (15:24)
--- NOTE | 2022-12-31 21:26 | P.PN ---
Date of Service: 12/31/22 Vital Signs Temp Pulse Resp BP Pulse Ox 97.5 F 56 18 124/58 L 96 12/31/22 16:00 12/31/22 16:00 12/31/22 19:19 12/31/22 16:00 12/31/22 16:00 Medications Amlodipine Besylate (Amlodipine 5 Mg Tab) 5 mg PO BID [facility] Last Admin: 12/31/22 08:58 Dose: 5 mg Buspirone HCl (Buspirone Hcl 15 Mg Tablet) 15 mg PO BID [facility] Last Admin: 12/31/22 09:03 Dose: 15 mg Clonidine HCl (Clonidine 0.3 Mg/Patch) 0.3 mg TD EVERY 7TH DAY [facility] Last Admin: 12/30/22 14:59 Dose: 0.3 mg Diphenhydramine HCl (Diphenhydramine 25 Mg Tab/Cap) 25 mg PO Q6H PRN PRN Reason: ITCHING Last Admin: 12/31/22 01:38 Dose: 25 mg Divalproex Sodium (Divalproex Dr 500mg Tab) 500 mg PO BID [facility] Last Admin: 12/31/22 08:56 Dose: 500 mg Docusate Sodium (Docusate Na 100 Mg Cap) 100 mg PO BID [facility] Last Admin: 12/31/22 08:58 Dose: Not Given Doxazosin Mesylate (Doxazosin 2 Mg Tab) 2 mg PO BID [facility] Last Admin: 12/31/22 09:07 Dose: 2 mg Epoetin Vasu (Epoetin Vasu 10,000 Unit/Ml Vial) 10,000 unit SQ M,W,F [facility] Last Admin: 12/30/22 20:33 Dose: 10,000 unit Ergocalciferol (Drisdol (Vitamin D=Ergocalciferol) 56578 Unit Cap) 50,000 unit PO Q7D [facility] Last Admin: 12/30/22 11:00 Dose: Not Given Heparin Sodium (Porcine) (Heparin 5000 Unit/Ml 1 Ml Vial) 4,400 unit IV PRN PRN PRN Reason: HEPARIN RE-BOLUS ACS PROTOCOL Last Admin: 12/30/22 20:10 Dose: 4,400 unit Hydralazine HCl (Hydralazine Hcl 20 Mg/Ml Vial) 10 mg IV Q4HP PRN PRN Reason: FOR SBP>160 OR DBP>100 MMHG Last Admin: 12/30/22 06:13 Dose: 10 mg Hydromorphone HCl (Hydromorphone Hcl 1 Mg/Ml Inj) 1 mg IV Q4H PRN PRN Reason: Pain scale 8-10 (Severe) Last Admin: 12/31/22 18:49 Dose: 1 mg Metronidazole/Sodium Chloride (Flagyl 500mg/100 Ml Iv Premix) 500 mg in 100 mls @ 200 mls/hr IV Q8H [facility]; Protocol Last Admin: 12/31/22 14:00 Dose: Not Given Insulin Human Regular (Insulin -Regular Human 50 Unit/0.5 Ml Ml) 0 unit SQ ACHS [facility]HEMI; Protocol Last Admin: 12/31/22 16:30 Dose: Not Given Metoclopramide HCl (Metoclopramide 10 Mg/2ml Inj) 5 mg IV Q12H [facility] Last Admin: 12/31/22 15:24 Dose: 5 mg Metoprolol Succinate (Metoprolol Xl 25 Mg Tab) 25 mg PO BID [facility] Last Admin: 12/31/22 08:59 Dose: 25 mg Ondansetron HCl (Ondansetron 4 Mg/2 Ml Vial) 4 mg IV Q6HP PRN PRN Reason: NAUSEA / VOMITING Last Admin: 12/31/22 10:58 Dose: 4 mg Pantoprazole Sodium (Pantoprazole 40 Mg Inj) 40 mg IVP Q12HR [facility]; Protocol Last Admin: 12/31/22 08:56 Dose: 40 mg Promethazine HCl (Promethazine 25 Mg Tablet) 25 mg PO Q6HP PRN PRN Reason: NAUSEA / VOMITING Last Admin: 12/26/22 17:25 Dose: 25 mg Sodium Chloride (Flush Normal Saline 10 Ml) 10 ml IV BID [facility] Last Admin: 12/31/22 08:58 Dose: 10 ml Sodium Chloride (Sodium Chloride 0.9% 10ml Inj) 10 ml IV UD PRN PRN Reason: Diluant Assessment/ Plan: Nephrology Moderate, persistent abdominal pain with malaise, nausea and vomiting No dyspnea No chest pain Vitals, medications, blood work and imaging reviewed in the chart Mild to moderate distress. NCAT. Neck supple. Normal respiratory effort. RRR. Tender abd. No C/C/E. No rash. AAO. Normal speech. ESRD on HD MWF -Acute HD tomorrow Hyponatremia -HD TIW HTN with CKD/ CHF -Continue Metoprolol & Doxazosin -Continue Amlodipine Diastolic CHF, chronic -Low sodium diet -Daily weight -HD with UF as ordered DM II with CKD -RISS Anemia in CKD Pancytopenia -Retacrit TIW CKD MBD -Continue Ergo -Restart binders as indicated Abdominal pain complicated by DM gastroparesis -Follow up with surgery -Reyna X1
[2022-12-31] MEDS ORDERED: METOCLOPRAMIDE 10 MG/2mL INJ IV SCH (21:30)
[2023-01-01] MEDS: METOCLOPRAMIDE 10 MG/2mL INJ IV SCH (02:53)
[2023-01-01] MEDS: HYDROMORPHONE HCL 1 MG/ML INJ IV PRN (02:58)
[2023-01-01] MEDS: METRONIDAZOLE 500mg IVPB 500 MG/100 ML BAG IV SCH ×2 (05:30→14:00)
[2023-01-01] MEDS: INSULIN -REGULAR HUMAN 50 UNIT/0.5 ML ML SQ SCH ×2 (07:30→11:30)
[2023-01-01] MEDS: PANTOPRAZOLE 40 MG INJ IVP SCH (08:17)
[2023-01-01] MEDS: DIVALPROEX DR 500MG TAB PO SCH (08:17)
[2023-01-01] MEDS: BUSPIRONE HCL 15 MG TABLET PO SCH (08:18)
[2023-01-01 08:38] LABS: Absolute Lymphocytes (CBC) 0.8 K/uL (0.7-4.9); Hematocrit 31.2 % (36.0-45.0); Lymphocytes % 30.1 % (15.3-44.8); MPV 10.2 fL (7.6-11.3); RBC Red Blood Cell Count 3.39 M/uL (3.86-4.86)
[2023-01-01] MEDS: METOPROLOL XL 25 MG TAB PO SCH (09:00)
[2023-01-01] MEDS: DOCUSATE NA 100 MG CAP PO SCH (09:00)
[2023-01-01] MEDS: AMLODIPINE 5 MG TAB PO SCH (09:00)
[2023-01-01] MEDS: DOXAZOSIN 2 MG TAB PO SCH (09:00)
--- NOTE | 2023-01-01 09:04 | P.PN ---
Date of Service: 12/30/22 Subjective: Patient continues to improve. How long conversation with family. Chart reviewed patient's portal but no evidence of any cardiac interventions. We will go ahead and stop the heparin drip. Spoke with general surgery and they will speak with family. Vitals: Reviewed Physical Exam: GEN: Alert, oriented, poor dentition HEENT: Normal conjunctiva, sclera anicteric CV: Regular rate and rhythm, 1+ lower extremity edema Pulm: Nonlabored respirations on room air ABD: Soft, mild RUQ tenderness, nondistended Neuro: Normal speech, normal affect Problem List: 1. Cholecystitis, Cholelithiasis; without evidence of choledocholithiasis 2. Biliary dyskinesia 3. ESRD on HD 4. 2nd degree, Mobitz 1 (Mohit) 5. Diastolic CHF, chronic 6. Anemia of chronic disease 7. NIDDM2 with neuropathy 8. Hypertension 9. Schizophrenia\PTSD 10. Gastroparesis 11. Thrombocytopenia, chronic 12. Nicotine dependence PLAN 1. General surgery consultation appreciated 2. Hemodialysis per nephrology; their assistance is appreciated 3. Some records reviewed from pt portal 4. Strict BP and BS control 5. Reglan for gastroparesis 6. Monitor hemodynamics 7. GI and DVT prophylaxis
--- NOTE | 2023-01-01 09:06 | P.PN ---
Date of Service: 12/31/22 Subjective: General surgery spoke with family and they are recommending outpatient follow-up to further evaluate gallbladder disease. They do not feel like there is anything emergent or imminent; will also treat her gastroparesis a little bit more aggressively at this time. Blood pressure and blood sugars are stable. Vitals: Reviewed Physical Exam: GEN: Alert, oriented, poor dentition HEENT: Normal conjunctiva, sclera anicteric CV: Regular rate and rhythm, 1+ lower extremity edema Pulm: Nonlabored respirations on room air ABD: Soft, mild RUQ tenderness, nondistended Neuro: Normal speech, normal affect Problem List: 1. Cholelithiasis; without evidence of choledocholithiasis 2. Biliary dyskinesia 3. ESRD on HD 4. 2nd degree, Mobitz 1 (Mohit) 5. Diastolic CHF, chronic 6. Anemia of chronic disease 7. NIDDM2 with neuropathy 8. Hypertension 9. Schizophrenia\PTSD 10. Gastroparesis 11. Thrombocytopenia, chronic 12. Nicotine dependence PLAN 1. General surgery consultation appreciated 2. Hemodialysis per nephrology; their assistance is appreciated 3. Some records reviewed from pt portal; no cardiac intervention 4. Strict BP and BS control 5. Reglan for gastroparesis 6. Monitor hemodynamics 7. GI and DVT prophylaxis
[2023-01-01 09:07] VITALS: BP 133/60; TEMP 97.7
[2023-01-01 09:23] LABS: AST/SGOT 14 U/L (15-37); Albumin 3.6 g/dL (3.4-5.0); Alkaline Phosphatase 53 U/L (45-117); BUN Blood Urea Nitrogen 17 mg/dL (7-18); Bicarbonate 25 mEq/L (21-32); Bilirubin Total 0.6 mg/dL (0.2-1.0); C-Reactive Protein 9.11 mg/L (<3.00); Glomerular Filtration Rate 7 ml/min (=/>90); Glucose Level 80 mg/dL (74-106); Potassium 3.9 mEq/L (3.5-5.1); Protein, Total 6.4 g/dL (6.4-8.2); Sodium Level 136 mEq/L (136-145)
[2023-01-01 09:35] LABS: ALT/SGPT < 10 U/L (13-56)
--- NOTE | 2023-01-01 11:17 | P.PN ---
(S) Pt seen on HD, tolerating session, BP not as accelerated, reports less abd pain, no current nausea, did eat something this AM. (O) Vitals reviewed in the EMR Physical Examination General: Alert, Cooperative HEENT: Atraumatic, Normocephalic, Other (Poor oral dentition) Neck: Supple Respiratory: Normal air movement, Other (No rales or rhonchi) Cardiovascular: No edema, Regular rate/rhythm, Normal S1 S2 Gastrointestinal: Non-distended, No guarding, Other (RUQ TTP) Musculoskeletal: No contractures, No erythema, No tenderness, Other (Rt UE AVF) Integumentary: Other (Diabetic dermopathy ) Neurological: Lethargic but awake, responds briefly, no tremors Laboratory Data (last 24 hrs) Reviewed Conclusions/Impression: A/P) ESRD on HD MWF -Cont iHD, metab profile stable, see HD orders for details HTN with CKD/ CHF. Labile pressures, accelerated -F/u post HD BP, not all of her home BP meds have been ordered, return to home regimen on discharge Diastolic CHF, chronic -Monitor fluid status closely, no significant hypervolemia currently on exam -Reports of recent LHC, still awaiting records to clarify if PCI/SHANIKA performed. Abdominal pain unspecified. N/V Chronic cholecystitis signs on imaging but also has diabetic gastropariesis, LFTs ok, gen surgery recommending OP f/u. Cont renally dosed Reyna Yusuf MD, [facility]
== END 2023-01-01 15:38 | disposition home or self-care (01) | DRG 444 ==
LOC: ER 14:12 → ERHOLD 16:46 → 2ND 19:32
PROVIDERS: ADMIT Hospitalist; ATTEND Hospitalist
DX: K80.00 Calculus of gallbladder with acute cholecystitis without obstruction (principal); N18.6 End stage renal disease; I13.2 Hypertensive heart and chronic kidney disease with heart failure and with stage 5 chronic kidney disease, or end stage renal disease; I50.32 Chronic diastolic (congestive) heart failure; E87.1 Hypo-osmolality and hyponatremia; D61.818 Other pancytopenia; E11.22 Type 2 diabetes mellitus with diabetic chronic kidney disease; E11.42 Type 2 diabetes mellitus with diabetic polyneuropathy; E11.43 Type 2 diabetes mellitus with diabetic autonomic (poly)neuropathy; D63.1 Anemia in chronic kidney disease; D50.9 Iron deficiency anemia, unspecified; F43.10 Post-traumatic stress disorder, unspecified; F20.9 Schizophrenia, unspecified; I44.1 Atrioventricular block, second degree; K82.8 Other specified diseases of gallbladder; K31.84 Gastroparesis; F17.210 Nicotine dependence, cigarettes, uncomplicated; Z88.5 Allergy status to narcotic agent; Z88.8 Allergy status to other drugs, medicaments and biological substances; Z63.5 Disruption of family by separation and divorce; Z71.6 Tobacco abuse counseling; Z88.0 Allergy status to penicillin; Z99.2 Dependence on renal dialysis; Z95.5 Presence of coronary angioplasty implant and graft; Z79.4 Long term (current) use of insulin; Z79.02 Long term (current) use of antithrombotics/antiplatelets; Z79.82 Long term (current) use of aspirin; Z98.51 Tubal ligation status; Z91.158 Patient's noncompliance with renal dialysis for other reason; Z79.899 Other long term (current) drug therapy; Z91.048 Other nonmedicinal substance allergy status
CPT/HCPCS: 36415; 76705; 80048; 80053; 80076; 82947; 82977; 83690; 83735; 85025; 85610; 85730; 86140; 87340; 90935; 93005; 96374; 96375; 99285; C9113; J0360; J0696; J0744; J1170; J1200; J1644; J2405; J2543; J2550; J2765; Q0169; Q5106

== ENCOUNTER 2023-01-26 22:24 | Emergency (ER) | payer MEDICARE, OTHER ==
[2023-01-26] MEDS ORDERED: HYDROCODONE/APAP 10/325 TAB ONE (23:00)
--- OUTSIDE RECORDS SUMMARY | 2023-01-26 23:38 | XMS REPORT | Continuity of Care Document ---
:[address] [facility] t Address [address] [place] [address] Care Team Providers Name Role Phone Sharpless Primary Care Physician ZURDO CHILD Attending Clinician Unavailable VELMA TOLLIVER Attending Clinician Unavailable Daquan_giovanna Attending Clinician Unavailable Nodal_J Attending Clinician Unavailable Vladimir_Dinah Attending Clinician Unavailable RAJ WEST Attending Clinician Unavailable Jose Miguel Morin DO Attending Clinician Rosy BURNS, Brooke Ricci Attending Clinician [phone] Seth HOGUEC, Bessie Parks Attending Clinician [phone] Forrest Cruz Attending Clinician Unavailable Vladimir Melany Attending Clinician Pat BURNS, Sivan Brand Attending Clinician Isra BURNS, Rachel Lew Attending Clinician [phone] Robe BURNS, Holden Elmore Attending Clinician Magaly BURNS, Shanda Higuera Attending Clinician Endy BURNS, Aurelio Attending Clinician Alesia Dodd Attending Clinician Joe BURNS, Mando Raphael Attending Clinician [phone] Jose Carlos BURNS, Veto Vincent Attending Clinician Juwan You MD Attending Clinician Sofi Roach MD Attending Clinician [phone] Robert MAYS, Gayle Attending Clinician Unavailable [...] Attending Clinician Sukhjinder Medina MD Attending Clinician Brisa JARRETT, Hanane Attending Clinician MD JUWAN YOU Attending Clinician Unavailable Elodia Coombs RN Attending Clinician Unavailable Doctor Unassigned, Guy Attending Clinician Unavailable MONA BHAT Attending Clinician [...] Clinician Unavailable Deja Cleaning DPM Attending Clinician [phone] Pc, Adc Echo Room 1 - Attending [...] Arun Espitia MD, Victor J Admitting Clinician [phone] Hui Wright Admitting Clinician HUI WRIGHT Admitting Clinician Unavailable Rei Waldron Admitting Clinician Unavailable MOISE BHAKTA Admitting Clinician Unavailable Danae Cha Admitting Clinician Joe Juárez Admitting Clinician Payers Payer Name Policy Type Policy Number Effective Date Expiration Date S karla MEDICARE PART A AND [id number] 2014 2021 B 00:00:00 00:00:[id number] 2020 00:00:00 MEDICARE PART A \\T\\ [id number] 2014 B 00:00:00 MEDICAID OF [place] [id number] 2020 00:00:[id number] 2021 (MEDICARE 00:00:00 REPLACEMENT HMO) MEDICARE A B [id number] 2014 00:00:00 [place] [id number] 2016 00:00:00 Problems Condition Condition Condition Status Onset Resolution Last Treating Co mments Source Name Details Category Date Date Treatment Clinician Date AVF AVF Disease Active Univers (arteriove (arteriove 9 it y of nous nous 00:00: [place] fistula) fistula) 00 Medica l Branch GASTROPARE GASTROPAR Diagnosis Active 2021-02-10 Memoria HELENA/IBS-D ESISI/IBS- 7-16 21:41:00 l /ANEMIA D/ANEMIA 00:00: Vin Active 00 01/03/2021 [facility] End stage End stage [...] REFRACTORY REFRACTORY 00 GASTRO GASTRO Active 10/14/2020 [facility] Malfunctio Malfunctio Disease Active Overview : Univers n of n of 6-03 Formattin ity of arterioven arterioven 00:00: g of this [place] ous ous 00 note Medical dialysis dialysis might be Bran ch fistula, fistula, different initial initial from the encounter encounter original. Added automatic ally from request for surgery [id number] Candidiasi Candidiasi Disease Active U nivers s of vulva s of vulva 2-18 [place] of [place] Screening Screening Disease Active Uni vers for breast for breast 2-18 it y of cancer cancer 00:00: [place] 00 Medical Branch NEW NEW Diagnosis Active 2018-07-26 Mem oria EVALUATION EVALUATION 07-12 09:39:00 l Active 00:00: Vin 07/12/2018 [facility] Pyogenic Pyogenic Disease Active 2017-06 Overview: Un lori granuloma granuloma 0-17 Formattin i ty of of of 00:00: g of this [place] conjunctiv conjunctiv 00 note Me dical a, right a, right might be Bran ch different from the original. Added automatic ally from request for surgery [id number] Right eye Right eye Disease Active Overview: [...] involving for macula, macula, surgery associated associated [id number] with type with type 1 diabetes 1 diabetes mellitus mellitus Pain Pain Disease Active Univers management management 01-18 it y of 00:00: [place] 00 Medical Branch Blind Blind Disease Active Overview: Univer s painful painful 12-16 Formattin ity o f eye eye 00:00: g of this [place] 00 note [...] Added automatic ally from request for surgery [id number] ESRD (end ESRD (end Disease Active Overview: Univers stage stage 6-12 Formattin ity of renal renal 00:00: g of this [place] disease) disease) 00 note Medica l on on might be Branch dialysis dialysis different from the original. Added automatic ally from request for surgery [id number] Diabetes Diabetes Disease Active Metho di mellitus [...] Added automatic ally from request for surgery [id number] Neovascula Neovascula Disease Active U nivers r r 1-18 it[place] of glaucoma, [place], [place] Medica l Branch Increased Increased Disease Active Uni vers intraocula intraocula 1-18 [place] of r pressure r pressure [place] Fall Fall Disease Active 2016-06 Univers 0-13 ity of 00:00: [place] 00 Medical Branch Pneumonia Pneumonia Disease Active 2016-06 Uni vers 0-11 ity of 00:00: [place] [address] Medical Branch Diabetes Diabetes Disease Active 2016-06 Overview: Un lori mellitus mellitus 0-05 Formattin ity of 00:00: g of this [place] 00 note Medical might be Branch different from the original. Added automatic ally from request for surgery [id number] Pseudotumo Pseudotumo Disease Active U nivers r cerebri r cerebri 9-25 ity of 00:00: [place] [facility] Branch SANJUANA (acute SANJUAAN (acute Disease Recurre [facility] kidney kidney [...] Disease Active [facility] neuropathy neuropathy -16 [facility] 00[facility] 00 Center Cyclic Cyclic Disease Active [facility] vomiting vomiting 7-16 [facility] syndrome syndrome 00:[facility]: Medica l 00 Center Anxiety Anxiety Disease Active [facility] Hypertensi Hypertensi Disease Active [facility] ve ve 7[facility]16 [facility] emergency emergency 00:00: Medi tawnya 00 Center ACUTE RESP ACUTE Diagnosis Active 2016-09-09 Memmarin FAILURE RESP 07-23 09:11:00 l FAILURE 00:00: Vin Active 00 07/23/2016 [facility] CONGESTION CONGESTIO Diagnosis Active 2016-07-24 Memmarin AMD N AMD 07-23 01:49:00 l DIARRHEA DIARRHEA 00:00: Jake gonzalez Active 00 07/23/2016 [facility] SOB/SWELLI SOB/SWELL Diagnosis [facility] 2015-062016-06-[facility] Active 08-11 15:48:00 l 06/10/2016 00:00: Jake gonzalez [address] CHF/RENAL CHF/RENAL Diagnosis Active 2015-062016-06-24 Memoria DISEASE DISEASE 08-11 15:35:00 l Active 00:00: Vin 06/10/2016 00 [facility] Congestive Congestive Disease Active 2015-06 U T heart heart 08-11 Health failure failure 00:00: (CHF) (CHF) 00 Obesity Obesity Disease Active 2015-06 Univers (BMI (BMI 0-12 ity of 30-39.9) 30-39.9) 00:00: [place] [address] Medical Branch Hyperosmol Hyperosmol Disease Active 2015-06 U viviana ar ar 0-12 ity of non-ketoti non[place]ketoti [place] in c state in 00 Me dical patient patient Branch with 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 Hyperglyce Hyperglyce Disease Active 2015-06 U viviana maryam maryam 0-11 ity of 00:00: [place] [address] Medical Branch Diabetic Diabetic Disease Active Unive rs ulcer of ulcer of 5-07 ity of both feet both feet 00:00: Amisha s associated associated 00 Me dical with type with type Bran ch 2 diabetes 2 diabetes mellitus mellitus SANJUANA (acute SANJUANA (acute Disease Active U viviana kidney kidney 5-07 ity of injury) injury) 00:00: [place] [address] Medical Branch Depression Depression Disease Active U [...] 00:00: [place] cancer in cancer in 00 [facility] female female Branch Family Family Disease [...] ABDOMINAL Diagnosis Active 2014-06-26 Memoria PAIN, PAIN, 1-06 05:44:00 l SEIZURES SEIZURES 00:00: Jake gonzalez Active 00 06/26/2013 [facility] ABD PAIN ABD PAIN Diagnosis Active 2012-062013-04-19 Memoria Active 0 21:51:00 l 04/14/2013 19:00: Jake gonzalez [address] GASTROPERI GASTROPER Diagnosis Active 2012-09-13 Memoria SIS DAISY -12 15:17:00 l Active 00:00: [place] 08/02/2012 00 [facility] ABDOMINAL ABDOMINAL Diagnosis Active 2012-03-14 Memoria PAIN PAIN 03-14 16:56:00 l Active 14:00: [place] 03/14/2012 00 [facility] NAUSEA, NAUSEA, Diagnosis Active 2012-03-14 Memoria VOMITING VOMITING 03-14 13:25:00 l Active 08:00: [place] 03/14/2012 00 [facility] N/V N/V Diagnosis Active 2011-12-08 Mem oria INABILITY INABILITY 11-27 11:14:00 l TO TO 00:00: [place] TOLERATE TOLERATE 00 PO PO Active 11/28/2011 [facility] VOMITTING VOMITTING Diagnosis Active 2011-11-28 Memoria Active 11-27 16:28:00 l 11/28/2011 00:00: Jake n [address] VOMITTING, VOMITTING Diagnosis Active 2011-09-18 Memoria HIGH BLOOD , HIGH 09-17 09:45:00 l SUGAR BLOOD 00:00: Vin SUGAR 00 Active 09/18/2011 [facility] Methicilli Methicill Problem Active 2021-01-31 Memoria n in 08-31 22:29:25 l resistant resistant 00:00: Herm naeem Staphyloco Staphyloco 00 ccus ccus aureus aureus (organism) (organism) Active 09/01/2011 Problem 01/31/2021 09/01/11 - Elbow wound
Problem added by Discern Expert. [facility] MRSA MRSA Problem Active 2012-03-16 Memor ia Active 08-31 09:11:30 l 09/01/2011 00:00: Jake n Problem 00 03/16/2012 <sup>1</oliveros p>09/01/11 - Elbow wound
<sup>2< /sup>Probl em added by Discern Expert. [facility] VOMITING, VOMITING, Diagnosis Active 2011-09-01 Memoria BLOOD BLOOD 08-30 03:19:00 l SUGAR SUGAR 00:00: Vin READINGS READINGS 00 HIGH HIGH Active 08/31/2011 [facility] ELBOW ELBOW Diagnosis Active 2011-09-10 Mem oria ABSCESS/HY ABSCESS/HY 08-30 16:26:00 l PERGLYCEMI PERGLYCEMI 00:00: He rmann A A Active 00 08/31/2011 [facility] Hypokalemi Hypokalem Problem Active 2012-03-16 Memoria a ia Active 08-22 09:11:30 l 08/23/2011 00:00: Jake gonzalez Problem 00 03/16/2012 [facility] DKA DKA Diagnosis Active 2011-08-24 Mem oria Active 11:27:00 l 08/19/2011 00:00: aJke gonzalez [address] VOMITING VOMITING Diagnosis Active 2011-08-19 Memoria Active 16:21:00 l 08/19/2011 00:00: Jake gonzalez [address] Final: Final: Problem 2016-08-02 Mem oria Acute Acute 02:46:22 l respirator respirator He rmann y failure, y failure, unspecifie unspecifie d whether d whether with with hypoxia or hypoxia or hypercapni hypercapni a a 08/02/2016 [facility] Hypoglycem Hypoglyce Problem Inactiv 2012-03-16 Memoria ia maryam e 09:11:30 l Inactive Vin Problem 03/16/2012 [facility] Hypoglycem Hypoglyce Problem Inactiv 2013-04-22 Memoria ia maryam e 04:46:33 l (disorder) (disorder) He rmann Inactive Problem 04/22/2013 [facility] Gastropare Gastropar Problem Resolve 2021-01-31 Memoria sis esis d 22:29:25 l (disorder) (disorder) He rmann Resolved Problem 01/31/2021 [facility] Hypertensi Hypertens Problem Resolve 2021-01-31 Memoria ve montse d 22:29:25 l disorder, disorder, Herm naeem systemic systemic arterial arterial (disorder) (disorder) Resolved Problem 01/31/2021 [facility] Psychiatri Psychiatr Problem Resolve 2021-01-31 Memoria c ic d 22:29:25 l behavioral behavioral He rmann disability disability (finding) (finding) Resolved Problem 01/31/2021 [facility] Seizure Seizure Problem Resolve 2021-01-31 M emoria (finding) (finding) d 22:29:25 l Resolved Vin Problem 01/31/2021 [facility] Hypertensi Hypertens Problem Active 2012-03-16 Memoria on ion Active 09:11:30 l Problem Vin 03/16/2012 [facility] Hypomagnes Hypomagne Problem Active 2013-04-22 Memoria emia semia 04:46:33 l Active [place] Problem 04/22/2013 [facility] Nausea and Nausea Problem Active 2012-03-16 Memoria vomiting and 09:11:30 l vomiting Vin Active Problem 03/16/2012 [facility] ENCNTR FOR ENCNTR Diagnosis Active 2020-12-24 Memoria GENERAL FOR 10:39:00 l ADULT GENERAL [place] MEDICAL ADULT EXAM W/ MEDICAL EXAM W/ Active [facility] DMI DMI Diagnosis Active 2011-08-24 Mem oria KETOACD KETOACD 11:27:00 l UNCONTROLD UNCONTROLD He rmann Active [facility] OTHER OTHER Diagnosis Active 2011-09-10 Mem oria GENERAL GENERAL 16:26:00 l SYMPTOMS SYMPTOMS Jake n Active [facility] HEART HEART Diagnosis Active 2016-06-24 Me moria FAILURE, FAILURE, 15:35:00 l UNSPECIFIE UNSPECIFIE He rmann D D Active [facility] ACUTE ACUTE Diagnosis Active 2016-09-09 Mem oria RESPIRATOR RESPIRATOR 09:11:00 l Y FAILURE, Y FAILURE, He rmann UNSP W UNSP W HYPOXI HYPOXI Active [facility] Nausea and Nausea Problem Resolve 2021-01-31 2021-01-31 Memoria vomiting and d 6-10 22:29:25 22:29:25 l (disorder) vomiting 00:00: Herm naeem (disorder) 00 Resolved 11/29/2011 Problem 01/31/2021 [facility] Hypokalemi Hypokalem Problem Resolve 2021-01-31 2021-01-31 Memoria a ia d 3-04 22:29:25 22:29:25 l (disorder) (disorder) 00:00: He rmann Resolved 00 08/23/2011 Problem 01/31/2021 [facility] Disorder Disorder Problem Resolve 2021-01-312021-012021-01-31 Memoria of of d 08-22 22:29:25 22:29:25 l magnesium magnesium 00:00: [place] naeem metabolism metabolism 00 (disorder) (disorder) Resolved 08/23/2011 Problem 01/31/2021 [facility] Hyperglyce Hyperglyc Problem Resolve 2021-01-31 2021-01-31 Memoria maryam live d 08-19 22:29:25 22:29:25 l (disorder) (disorder) 00:00: He ally Resolved 00 08/20/2011 Problem 01/31/2021 [facility] Ketoacidos Ketoacido Problem Resolve 2021-01-31 2021-01-31 Memoria is in sis in d 22:29:25 22:29:25 l diabetes diabetes 00:00: Jake n mellitus mellitus 00 (disorder) (disorder) Resolved 08/19/2011 Problem 01/31/2021 [facility] DKA DKA Problem Resolve 2013-04-22 2013-04-22 Memoria (diabetic (diabetic d 04:46:33 04:46:33 l ketoacidos ketoacidos 00:00: Tyrel canales es) es) 00 Resolved 08/19/2011 Problem 04/22/2013 [facility] History of Past Illness Condition Condition Condition Status Onset Resolution Last Treating Co mments Source Name Details Category Date Date Treatment Clinician Date Discharge Discharge Problem 2014-06-28 2014-06-28 Memoria Diagnosis: Diagnosis: 06-26 16:34:37 16:34:37 l Gastropare Gastropare 06:00: Tyrel canales sis sis 00 06/26/2014 5 [facility] Hyperglyce Hyperglyc Problem Inactiv 2012-03-16 2012-03-16 Memoria maryam live e 08-19 09:11:30 09:11:30 l Inactive 00:00: Vin 08/20/2011 00 Problem 03/16/2012 [facility] Allergies, Adverse Reactions, Alerts Allergy Allergy Status Severity Reaction(s) Onset Inactive Treating Comm ents Source Name Type Date Date Clinician Lactose Propensi Active GI 2020-06 Methodi ty to Intolerance - st adverse 00:00: Hospita reaction 00 l [...] Shortness Of itchy Methodi ty to Breath 10-01 st adverse 00:00: Hospita reaction 00 l [...] 00:00: 00 ZOLPIDEM Allergy Active Other [facility] 716 00:00: 00 LISINOPR Allergy Active Other [facility] [place] 01-03 00:00: 00 GUAIFENE Allergy Active Other [facility] SIN 01-03 00:00: 00 Ketorola Propensi Active Swelling THROAT Meth [...] essnumbne ssnumbnes s PROLEX DRUG Active Other-Cmnt 2011-0 Univer s 7-12 ity of 00:00: [place] [...] Medical Branch penicill Drug Active [facility] in [facility] lisinopr Drug Active [facility] Ambien Drug Active [facility] Prolixin Drug Active [facility] penicill Drug Active [facility] lisinopr Drug Active [facility] Ambien Drug Active [facility] Prolixin Drug Active [facility] Tape Other Active [facility] penicill Drug Active [facility] lisinopr Drug Active [facility] Ambien Drug Active [facility] Prolixin Drug Active [facility] codeine Drug Active [facility] penicill Drug Active [facility] lisinopr Drug Active [facility] Ambien Drug Active [facility] Prolixin Drug Active [facility] codeine Drug Active [facility] penicill Drug Active [facility] lisinopr Drug Active [facility] Ambien Drug Active [facility] Prolixin Drug Active [facility] penicill Drug Active [facility] lisinopr Drug Active [facility] Ambien Drug Active [facility] Prolixin Drug Active [facility] penicill Drug Active [facility] lisinopr Drug Active [facility] Ambien Drug Active [facility] Prolixin Drug Active [facility] penicill penicill Active Memori a ins ins l Vin codeine codeine Active Memoria l [place] morphine morphine Active Memori a l Vin lisinopr lisinopr Active Memori a il il l [place] Adhesive Adhesive Active Memori a Tape Tape l Vin Ambien Ambien Active Memoria l Vin Prolex Prolex Active Memoria DM DM l Vin Social History Social Habit Start Date Stop Date Quantity Comments Source Gender identity [facility] Sexual [facility] History of tobacco Cigarette Smoker [facility] Exposure to Yes [facility] SARS-CoV-2 (event) Hospit al History of Social 2022-08-25 2022-08-[address] function 00:00:00 00:00:00 Hospital Tobacco use and 2021-05-14 2021-05-14 Smokeless [facility] exposure 00:00:00 00:00:00 tobacco non-user Hospital Social History 2020-12-24 2020-12-24 [facility] 15:49:37 15:49:37 Alcohol intake 2017-12-17 2017-12-[address] [facility] 00:[facility]00 00:00:00 non-drinker of Medical Ce nter alcohol (finding) Cigarettes smoked 2017-01-03 2017-01-[address] [facility] current (pack per 00:00:00 00:00:00 [facility] day) - Reported Cigarette 2017-01-03 2017-01-[address] [facility] pack-years 00:00:00 00:00:00 [facility] Tobacco Comment 2017-01-03 2017-01-03 [facility] she stopped [address] month ago. Sex Assigned At [address] [facility] 00:00:00 00:00:00 [facility] Smoking Status Start Date Stop Date Source Smokes tobacco daily 2021-05-14 00:00:00 [facility] Former smoker 2020-06-27 00:00:00 2020-06-27 00:00:00 [facility] Medications Ordered Filled Start Stop Current Ordering Indication Dosage Frequency Signature Comments Components Source Medication Medication Date Date Medication? Clinician (SIG) Name Name glipiZIDE 0 Yes 5mg Take 5 mg Met hodi (GLUCOTROL) 1-[address] 5 MG tablet 13:02: daily. Hosp jo-ann 39 l calcium 0 Yes 667mg Q.[id number] Take 667 Methodi acetate 1-[id number] (PHOSLO) 13:02: 3D mouth [...] 39 nightly. l calcium 2021-0 Yes 1334mg Q.[id number] Take 1,334 Methodi acetate,domingo 1-18 [id number] mg by s t sphat bind, 13:02: 3D mouth 3 Hos whit (Phoslyra) 39 (three) l 667 mg (169 times a mg day. calcium)/5 mL solution cyproheptad 2021-0 Yes 4mg Q.[id number] Take 4 mg Methodi ine 1-[id number] mouth [address] (PERIACTIN) 13:02: 3D (three) Hos whit 4 mg tablet 39 times a l day as needed for allergies. buPROPion 2021-0 Yes 300mg QD Take 300 Met hodi XL 1-[address] (WELLBUTRIN 13:02: mouth Hospi ta XL) 300 MG 39 daily. l 24 hr tablet ascorbic 2021-0 Yes 500mg Q.[id number] Take 500 Methodi acid, 1-[id number] vitamin C, 13:02: 3D mouth 3 Hosp jo-ann (ascorbic 39 (three) l acid with times a sia hips) day. 500 MG tablet clonAZEPAM 2021-0 Yes .5mg Take 0.5 Met hodi (KlonoPIN) 1-[address] 0.5 MG 13:02: mouth as Hospita tablet 39 needed for l anxiety. calcium 2022-0 Yes 1334mg Q.[id number] Take 1,334 Methodi acetate,domingo 1-18 [id number] mg by s t sphat bind, 13:02: 3D mouth 3 Hos whit (Phoslyra) 39 (three) l 667 mg (169 times a mg day. calcium)/5 mL solution cyproheptad 0 Yes 4mg Q.[id number] Take 4 mg Methodi ine 1-[id number] [facility] [address] (PERIACTIN) 13:02: 3D (three) Hos whit 4 mg tablet 39 times a l day as needed for allergies. buPROPion 0 Yes 300mg QD Take 300 Met hodi XL 1-[address] (WELLBUTRIN 13:02: mouth Hospi ta XL) 300 MG 39 daily. l 24 hr tablet ascorbic 2021-0 Yes 500mg Q.[id number] Take 500 Methodi acid, 1-[id number] vitamin C, 13:02: 3D [...] jo-ann 39 l calcium 2021-0 Yes 667mg Q.[id number] Take 667 Methodi acetate 1-[id number] (PHOSLO) 13:02: 3D mouth [...] 39 nightly. l calcium 2021-0 Yes 1334mg Q.[id number] Take 1,334 Methodi acetate,domingo 1-18 [id number] mg by s t sphat bind, 13:02: 3D mouth 3 Hos whit (Phoslyra) 39 (three) l 667 mg (169 times a mg day. calcium)/5 mL solution cyproheptad 2022-0 Yes 4mg Q.[id number] Take 4 mg Methodi ine 1-[id number] mouth [address] (PERIACTIN) 13:02: 3D (three) Hos whit 4 mg tablet 39 times a l day as needed for allergies. buPROPion 2022-0 Yes 300mg QD Take 300 Met hodi XL 1-[address] (WELLBUTRIN 13:02: mouth Hospi ta XL) 300 MG 39 daily. l 24 hr tablet ascorbic 2021-0 Yes 500mg Q.[id number] Take 500 Methodi acid, 1-[id number] vitamin C, 13:02: 3D [...] jo-ann 39 l calcium 2021-0 Yes 667mg Q.[id number] Take 667 Methodi acetate 1-[id number] (PHOSLO) 13:02: 3D mouth [...] 39 nightly. l calcium 2021-0 Yes 1334mg Q.[id number] Take 1,334 Methodi acetate,domingo 1-18 [id number] mg by s t sphat bind, 13:02: 3D mouth 3 Hos whit (Phoslyra) 39 (three) l 667 mg (169 times a mg day. calcium)/5 mL solution cyproheptad 2021-0 Yes 4mg Q.[id number] Take 4 mg Methodi ine 1-[id number] (PERIACTIN) 13:02: 3D (three) Hos whit 4 mg tablet 39 times a l day as needed for allergies. buPROPion 2022-0 Yes 300mg QD Take 300 Met hodi XL 1-[address] (WELLBUTRIN 13:02: mouth Hospi ta XL) 300 MG 39 daily. l 24 hr tablet ascorbic 2021-0 Yes 500mg Q.[id number] Take 500 Methodi acid, 1-[id number] vitamin C, 13:02: 3D [...] jo-ann 39 l calcium 2021-0 Yes 667mg Q.[id number] Take 667 Methodi acetate 1-[id number] (PHOSLO) 13:02: 3D mouth [...] 39 nightly. l calcium 2021-0 Yes 1334mg Q.[id number] Take 1,334 Methodi acetate,domingo 1-18 [id number] mg by s t sphat bind, 13:02: 3D mouth 3 Hos whit (Phoslyra) 39 (three) l 667 mg (169 times a mg day. calcium)/5 mL solution cyproheptad 0 Yes 4mg Q.[id number] Take 4 mg Methodi ine 1-[id number] (PERIACTIN) 13:02: 3D (three) Hos whit 4 mg tablet 39 times a l day as needed for allergies. buPROPion 0 Yes 300mg QD Take 300 Met hodi XL 1-[address] (WELLBUTRIN 13:02: mouth Hospi ta XL) 300 MG 39 daily. l 24 hr tablet ascorbic 2021-0 Yes 500mg Q.[id number] Take 500 Methodi acid, 1-[id number] vitamin C, 13:02: 3D [...] jo-ann 39 l calcium 202-0 Yes 667mg Q.[id number] Take 667 Methodi acetate 1-[id number] (PHOSLO) 13:02: 3D mouth [...] 39 nightly. l calcium 2021-0 Yes 1334mg Q.[id number] Take 1,334 Methodi acetate,domingo 1-18 [id number] mg by s t sphat bind, 13:02: 3D mouth 3 Hos whit (Phoslyra) 39 (three) l 667 mg (169 times a mg day. calcium)/5 mL solution cyproheptad 2021-0 Yes 4mg Q.21619138 Take 4 mg [facility] ine 1-18 [id number] by mouth [address] (PERIACTIN) 13:02: 3D (three) Hos whit 4 mg tablet 39 times a l day as needed for allergies. buPROPion 2021-0 Yes 300mg QD Take 300 Met hodi XL 1-[address] (WELLBUTRIN 13:02: mouth Hospi ta XL) 300 MG 39 daily. l 24 hr tablet ascorbic 2021-0 Yes 500mg Q.16526317 Take 500 [facility] acid, 1-[address] vitamin C, 13:02: 3D [...] jo-ann 39 l calcium 2021-0 Yes 667mg Q.69119498 Take 667 [facility] acetate 1-[address] (PHOSLO) 13:02: 3D mouth [...] 39 nightly. l calcium 2021-0 Yes 1334mg Q.44375457 Take 1,334 Methodi acetate,domingo 1-18 [id number] mg by s t sphat bind, 13:02: 3D mouth 3 Hos whit (Phoslyra) 39 (three) l 667 mg (169 times a mg day. calcium)/5 mL solution cyproheptad 0 Yes 4mg Q.25641935 Take 4 mg [facility] ine 1-18 [id number] [address] mouth [address] (PERIACTIN) 13:02: 3D (three) Hos whit 4 mg tablet 39 times a l day as needed for allergies. buPROPion 2021-0 Yes 300mg QD Take 300 Met hodi XL 1-[address] (WELLBUTRIN 13:02: mouth Hospi ta XL) 300 MG 39 daily. l 24 hr tablet ascorbic 2021-0 Yes 500mg Q.82639970 Take 500 [facility] acid, 1-[address] vitamin C, 13:02: 3D [...] jo-ann 39 l calcium 2021-0 Yes 667mg Q.63379384 Take 667 [facility] acetate 1-[address] (PHOSLO) 13:02: 3D mouth [...] 39 nightly. l calcium 2021-0 Yes 1334mg Q.35872254 Take 1,334 Methodi acetate,domingo 1-18 9321018894 mg by s t sphat bind, 13:02: 3D mouth 3 Hos whit (Phoslyra) 39 (three) l 667 mg (169 times a mg day. calcium)/5 mL solution cyproheptad 2021-0 Yes 4mg Q.92997359 Take 4 mg [facility] ine 1-18 [id number] [address] mouth [address] (PERIACTIN) 13:02: 3D (three) Hos whit 4 mg tablet 39 times a l day as needed for allergies. buPROPion 2021-0 Yes 300mg QD Take 300 Met hodi XL 1-[address] (WELLBUTRIN 13:02: mouth Hospi ta XL) 300 MG 39 daily. l 24 hr tablet ascorbic 2021-0 Yes 500mg Q.01531707 Take 500 [facility] acid, 1-[address] vitamin C, 13:02: 3D [...] jo-ann 39 l calcium 2021-0 Yes 667mg Q.65212890 Take 667 [facility] acetate 1-[address] (PHOSLO) 13:02: 3D mouth [...] 39 nightly. l calcium 2-0 Yes 1334mg Q.47773472 Take 1,334 Methodi acetate,domingo 1-18 [id number] mg by s t sphat bind, 13:02: 3D mouth 3 Hos whit (Phoslyra) 39 (three) l 667 mg (169 times a mg day. calcium)/5 mL solution cyproheptad 2021-0 Yes 4mg Q.12532427 Take 4 mg [facility] ine 1-18 [id number] [address] mouth [address] (PERIACTIN) 13:02: 3D (three) Hos whit 4 mg tablet 39 times a l day as needed for allergies. buPROPion 2021-0 Yes 300mg QD Take 300 Met [facility]odi XL 1-[address] (WELLBUTRIN 13:02: mouth Hospi ta XL) 300 MG 39 daily. l 24 hr tablet ascorbic 2021-0 Yes 500mg Q.59087505 Take 500 [facility] acid, 1-[address] vitamin C, 13:02: 3D [...] jo-ann 39 l calcium 2021-0 Yes 667mg Q.58662661 Take 667 [facility] acetate 1-[address] (PHOSLO) 13:02: 3D mouth [...] 39 nightly. l calcium 2021-0 Yes 1334mg Q.55330456 Take 1,334 Methodi acetate,domingo 1-18 7402059575 mg by s t sphat bind, 13:02: 3D mouth 3 Hos whit (Phoslyra) 39 (three) l 667 mg (169 times a mg day. calcium)/5 mL solution cyproheptad 2022-0 Yes 4mg Q.13790414 Take 4 mg [facility] ine 1-18 [id number] [address] mouth [address] (PERIACTIN) 13:02: 3D (three) Hos whit 4 mg tablet 39 times a l day as needed for allergies. buPROPion 2021-0 Yes 300mg QD Take 300 Met [facility]odi XL 1-[address] (WELLBUTRIN 13:02: mouth Hospi ta XL) 300 MG 39 daily. l 24 hr tablet ascorbic 2021-0 Yes 500mg Q.57840321 Take 500 [facility] acid, 1-[address] vitamin C, 13:02: 3D [...] jo-ann 39 l calcium 2021-0 Yes 667mg Q.42519623 Take 667 [facility] acetate 1-[id number] (PHOSLO) 13:02: 3D mouth [...] 39 nightly. l calcium 2021-0 Yes 1334mg Q.55592656 Take 1,334 Methodi acetate,domingo 1-18 [id number] mg by s t sphat bind, 13:02: 3D mouth 3 Hos whit (Phoslyra) 39 (three) l 667 mg (169 times a mg day. calcium)/5 mL solution cyproheptad 2021-0 Yes 4mg Q.37401742 Take 4 mg [facility] ine 1-18 [id number] [address] mouth [address] (PERIACTIN) 13:02: 3D (three) Hos whit 4 mg tablet 39 times a l day as needed for allergies. buPROPion 2021-0 Yes 300mg QD Take 300 Met [facility] XL 1-[address] (WELLBUTRIN 13:02: mouth Hospi ta XL) 300 MG 39 daily. l 24 hr tablet ascorbic 2-0 Yes 500mg Q.60056956 Take 500 [facility] acid, 1-[address] vitamin C, 13:02: 3D [...] jo-ann 39 l calcium 2022-0 Yes 667mg Q.48936338 Take 667 [facility] acetate 1-[address] (PHOSLO) 13:02: 3D mouth [...] 39 nightly. l calcium 2021-0 Yes 1334mg Q.85748517 Take 1,334 Methodi acetate,domingo 1-18 [id number] mg by s t sphat bind, 13:02: 3D mouth 3 Hos whit (Phoslyra) 39 (three) l 667 mg (169 times a mg day. calcium)/5 mL solution cyproheptad 0 Yes 4mg Q.06040143 Take 4 mg [facility] ine 1-18 [id number] [address] [facility] [address] (PERIACTIN) 13:02: 3D (three) Hos whit 4 mg tablet 39 times a l day as needed for allergies. buPROPion 2021-0 Yes 300mg QD Take 300 Met [facility] XL 1-[address] (WELLBUTRIN 13:02: mouth Hospi ta XL) 300 MG 39 daily. l 24 hr tablet ascorbic 2021-0 Yes 500mg Q.76205437 Take 500 [facility] acid, 1-[id number] vitamin C, 13:02: 3D [...] jo-ann 39 l calcium 2021-0 Yes 667mg Q.76640839 Take 667 [facility] acetate 1-[address] (PHOSLO) 13:02: 3D mouth [...] 39 nightly. l calcium 2021-0 Yes 1334mg Q.54091044 Take 1,334 Methodi acetate,domingo 1-18 [id number] mg by s t sphat bind, 13:02: 3D mouth 3 Hos whit (Phoslyra) 39 (three) l 667 mg (169 times a mg day. calcium)/5 mL solution cyproheptad 0 Yes 4mg Q.[id number] Take 4 mg [facility] ine 1-18 [id number] [address] (PERIACTIN) 13:02: 3D (three) Hos whit 4 mg tablet 39 times a l day as needed for allergies. buPROPion 0 Yes 300mg QD Take 300 Met [facility] XL 1-[address] (WELLBUTRIN 13:02: mouth Hospi ta XL) 300 MG 39 daily. l 24 hr tablet ascorbic 2021-0 Yes 500mg Q.24823921 Take 500 [facility] acid, 1-[id number] vitamin C, 13:02: 3D [...] jo-ann 39 l calcium 2-0 Yes 667mg Q.69110834 Take 667 [facility] acetate 1-[address] (PHOSLO) 13:02: 3D mouth [...] 39 nightly. l calcium 2021-0 Yes 1334mg Q.65182916 Take 1,334 Methodi acetate,domingo 1-18 [id number] mg by s t sphat bind, 13:02: 3D mouth 3 Hos whit (Phoslyra) 39 (three) l 667 mg (169 times a mg day. calcium)/5 mL solution cyproheptad 2021-0 Yes 4mg Q.35010423 Take 4 mg [facility] ine 1-18 [id number] [address] mouth [address] (PERIACTIN) 13:02: 3D (three) Hos whit 4 mg tablet 39 times a l day as needed for allergies. buPROPion 2021-0 Yes 300mg QD Take 300 Met [facility] XL 1-[address] (WELLBUTRIN 13:02: mouth Hospi ta XL) 300 MG 39 daily. l 24 hr tablet ascorbic 2021-0 Yes 500mg Q.31402010 Take 500 [facility] acid, 1-[id number] vitamin C, 13:02: 3D [...] jo-ann 39 l calcium 2022-0 Yes 667mg Q.92833160 Take 667 [facility] acetate 1-[id number] (PHOSLO) 13:02: 3D mouth [...] 39 nightly. l calcium 2021-0 Yes 1334mg Q.96337774 Take 1,334 Methodi acetate,domingo 1-18 [id number] mg by s t sphat bind, 13:02: 3D mouth 3 Hos whit (Phoslyra) 39 (three) l 667 mg (169 times a mg day. calcium)/5 mL solution cyproheptad 2021-0 Yes 4mg Q.16158530 Take 4 mg [facility] ine 1-18 [id number] [address] mouth [address] (PERIACTIN) 13:02: 3D (three) Hos whit 4 mg tablet 39 times a l day as needed for allergies. buPROPion 2021-0 Yes 300mg QD Take 300 Met [facility] XL 1-[address] (WELLBUTRIN 13:02: mouth Hospi ta XL) 300 MG 39 daily. l 24 hr tablet ascorbic 2021-0 Yes 500mg Q.19195756 Take 500 [facility] acid, 1-[address] vitamin C, 13:02: 3D [...] jo-ann 39 l calcium 2021-0 Yes 667mg Q.98384529 Take 667 [facility] acetate 1-[id number] (PHOSLO) 13:02: 3D mouth [...] 39 nightly. l calcium 2021-0 Yes 1334mg Q.76343548 Take 1,334 Methodi acetate,domingo 1-18 [id number] mg by s t sphat bind, 13:02: 3D mouth 3 Hos whit (Phoslyra) 39 (three) l 667 mg (169 times a mg day. calcium)/5 mL solution cyproheptad 2021-0 Yes 4mg Q.95186148 Take 4 mg [facility] ine 1-18 [id number] [address] mouth [address] (PERIACTIN) 13:02: 3D (three) Hos whit 4 mg tablet 39 times a l day as needed for allergies. buPROPion 2021-0 Yes 300mg QD Take 300 Met [facility]odi XL 1-[address] (WELLBUTRIN 13:02: mouth Hospi ta XL) 300 MG 39 daily. l 24 hr tablet ascorbic 2021-0 Yes 500mg Q.[id number] Take 500 [facility] acid, 1-[id number] vitamin C, 13:02: 3D [...] jo-ann 39 l calcium 2021-0 Yes 667mg Q.19889265 Take 667 [facility] acetate 1-[address] (PHOSLO) 13:02: 3D mouth [...] 39 nightly. l calcium 2021-0 Yes 1334mg Q.15663941 Take 1,334 Methodi acetate,domingo 1-18 [id number] mg by s t sphat bind, 13:02: 3D mouth 3 Hos whit (Phoslyra) 39 (three) l 667 mg (169 times a mg day. calcium)/5 mL solution cyproheptad 2021-0 Yes 4mg Q.44682778 Take 4 mg [facility] ine 1-18 [id number] [address] mouth [address] (PERIACTIN) 13:02: 3D (three) Hos whit 4 mg tablet 39 times a l day as needed for allergies. buPROPion 2021-0 Yes 300mg QD Take 300 Met [facility]odi XL 1-[address] (WELLBUTRIN 13:02: mouth Hospi ta XL) 300 MG 39 daily. l 24 hr tablet ascorbic 2021-0 Yes 500mg Q.05596645 Take 500 [facility] acid, 1-[address] vitamin C, 13:02: 3D [...] jo-ann 39 l calcium 2021-0 Yes 667mg Q.94961033 Take 667 [facility] acetate 1-[address] (PHOSLO) 13:02: 3D mouth [...] 39 nightly. l calcium 2021-0 Yes 1334mg Q.[id number] Take 1,334 Methodi acetate,domingo 1-18 [id number] mg by s t sphat bind, 13:02: 3D mouth 3 Hos whit (Phoslyra) 39 (three) l 667 mg (169 times a mg day. calcium)/5 mL solution cyproheptad 2021-0 Yes 4mg Q.50222872 Take 4 mg [facility] ine 1-18 [id number] (PERIACTIN) 13:02: 3D (three) Hos whit 4 mg tablet 39 times a l day as needed for allergies. buPROPion 2021-0 Yes 300mg QD Take 300 Met [facility]odi XL 1-[address] (WELLBUTRIN 13:02: mouth Hospi ta XL) 300 MG 39 daily. l 24 hr tablet ascorbic 2022-0 Yes 500mg Q.33465720 Take 500 [facility] acid, 1-[address] vitamin C, 13:02: 3D [...] jo-ann 39 l calcium 2022-0 Yes 667mg Q.25894186 Take 667 [facility] acetate 1-[id number] (PHOSLO) 13:02: 3D mouth [...] 39 nightly. l calcium 2021-0 Yes 1334mg Q.46343563 Take 1,334 Methodi acetate,domingo 1-18 [id number] mg by s t sphat bind, 13:02: 3D mouth 3 Hos whit (Phoslyra) 39 (three) l 667 mg (169 times a mg day. calcium)/5 mL solution cyproheptad 0 Yes 4mg Q.23250697 Take 4 mg [facility] ine -18 [id number] [address] (PERIACTIN) 13:02: 3D (three) Hos whit 4 mg tablet 39 times a l day as needed for allergies. buPROPion 2021-0 Yes 300mg QD Take 300 Met hodi XL 1-[address] (WELLBUTRIN 13:02: mouth Hospi ta XL) 300 MG 39 daily. l 24 hr tablet ascorbic 2021-0 Yes 500mg Q.46337931 Take 500 [facility] acid, 1-[id number] vitamin C, 13:02: 3D [...] jo-ann 39 l calcium 2021-0 Yes 667mg Q.91298214 Take 667 [facility] acetate 1-[id number] (PHOSLO) 13:02: 3D mouth [...] 39 nightly. l calcium 2021-0 Yes 1334mg Q.44162772 Take 1,334 Methodi acetate,domingo 1-18 [id number] mg by s t sphat bind, 13:02: 3D mouth 3 Hos whit (Phoslyra) 39 (three) l 667 mg (169 times a mg day. calcium)/5 mL solution cyproheptad 2021-0 Yes 4mg Q.85338978 Take 4 mg [facility] ine 1-18 [id number] [address] mouth [address] (PERIACTIN) 13:02: 3D (three) Hos whit 4 mg tablet 39 times a l day as needed for allergies. buPROPion 2021-0 Yes 300mg QD Take 300 Met hodi XL 1-[address] (WELLBUTRIN 13:02: mouth Hospi ta XL) 300 MG 39 daily. l 24 hr tablet ascorbic 2021-0 Yes 500mg Q.80301002 Take 500 [facility] acid, 1-[id number] vitamin C, 13:02: 3D [...] jo-ann 39 l calcium 2022-0 Yes 667mg Q.54915148 Take 667 [facility] acetate 1-[id number] (PHOSLO) 13:02: 3D mouth [...] 39 nightly. l calcium 2021-0 Yes 1334mg Q.[id number] Take 1,334 Methodi acetate,domingo 1-18 [id number] mg by s t sphat bind, 13:02: 3D mouth 3 Hos whit (Phoslyra) 39 (three) l 667 mg (169 times a mg day. calcium)/5 mL solution cyproheptad 2021-0 Yes 4mg Q.41370194 Take 4 mg [facility] ine 1-18 [id number] [address] mouth [address] (PERIACTIN) 13:02: 3D (three) Hos whit 4 mg tablet 39 times a l day as needed for allergies. buPROPion 2021-0 Yes 300mg QD Take 300 Met hodi XL 1-[address] (WELLBUTRIN 13:02: mouth Hospi ta XL) 300 MG 39 daily. l 24 hr tablet ascorbic 2021-0 Yes 500mg Q.39084440 Take 500 [facility] acid, 1-[id number] vitamin C, 13:02: 3D [...] jo-ann 39 l calcium 2021-0 Yes 667mg Q.[id number] Take 667 [facility] acetate 1-[id number] (PHOSLO) 13:02: 3D mouth [...] 39 nightly. l calcium 2021-0 Yes 1334mg Q.86749555 Take 1,334 Methodi acetate,domingo 1-18 [id number] mg by s t sphat bind, 13:02: 3D mouth 3 Hos whit (Phoslyra) 39 (three) l 667 mg (169 times a mg day. calcium)/5 mL solution cyproheptad 2021-0 Yes 4mg Q.09604160 Take 4 mg [facility] ine 1-18 [id number] by mouth [address] (PERIACTIN) 13:02: 3D (three) Hos whit 4 mg tablet 39 times a l day as needed for allergies. buPROPion 2021-0 Yes 300mg QD Take 300 Met hodi XL 1-[address] (WELLBUTRIN 13:02: mouth Hospi ta XL) 300 MG 39 daily. l 24 hr tablet ascorbic 2021-0 Yes 500mg Q.14977418 Take 500 [facility] acid, 1-[id number] vitamin C, 13:02: 3D [...] jo-ann 39 l calcium 2021-0 Yes 667mg Q.32710198 Take 667 [facility] acetate 1-[id number] (PHOSLO) 13:02: 3D mouth [...] 39 nightly. l calcium 2-0 Yes 1334mg Q.29383816 Take 1,334 Methodi acetate,domingo 1-18 [id number] mg by s t sphat bind, 13:02: 3D mouth 3 Hos whit (Phoslyra) 39 (three) l 667 mg (169 times a mg day. calcium)/5 mL solution cyproheptad 2022-0 Yes 4mg Q.11555757 Take 4 mg [facility] ine 1-18 [id number] [address] (PERIACTIN) 13:02: 3D (three) Hos whit 4 mg tablet 39 times a l day as needed for allergies. buPROPion 202-0 Yes 300mg QD Take 300 Met hodi XL 1-[address] (WELLBUTRIN 13:02: mouth Hospi ta XL) 300 MG 39 daily. l 24 hr tablet ascorbic 2021-0 Yes 500mg Q.16395561 Take 500 [facility] acid, 1-[id number] vitamin C, 13:02: 3D [...] jo-ann 39 l calcium 2-0 Yes 667mg Q.25935505 Take 667 [facility] acetate 1-[id number] (PHOSLO) 13:02: 3D mouth [...] 39 nightly. l calcium 2-0 Yes 1334mg Q.65204331 Take 1,334 Methodi acetate,domingo 1-18 [id number] mg by s t sphat bind, 13:02: 3D mouth 3 Hos whit (Phoslyra) 39 (three) l 667 mg (169 times a mg day. calcium)/5 mL solution cyproheptad 2021-0 Yes 4mg Q.02458337 Take 4 mg [facility] ine 1-18 [id number] (PERIACTIN) 13:02: 3D (three) Hos whit 4 mg tablet 39 times a l day as needed for allergies. buPROPion 2021-0 Yes 300mg QD Take 300 Met hodi XL 1-[address] (WELLBUTRIN 13:02: mouth Hospi ta XL) 300 MG 39 daily. l 24 hr tablet ascorbic 2021-0 Yes 500mg Q.50960284 Take 500 Method[facility] acid, 1-[address] vitamin C, 13:02: 3D [...] jo-ann 39 l calcium 2021-0 Yes 667mg Q.79915777 Take 667 [facility] acetate 1-[id number] (PHOSLO) 13:02: 3D mouth [...] 39 nightly. l calcium 2021-0 Yes 1334mg Q.11169825 Take 1,334 Methodi acetate,domingo 1-18 [id number] mg by s t sphat bind, 13:02: 3D mouth 3 Hos whit (Phoslyra) 39 (three) l 667 mg (169 times a mg day. calcium)/5 mL solution cyproheptad 2-0 Yes 4mg Q.85728654 Take 4 mg [facility]i ine 1-18 [id number] (PERIACTIN) 13:02: 3D (three) Hos whit 4 mg tablet 39 times a l day as needed for allergies. buPROPion 2021-0 Yes 300mg QD Take 300 Met hodi XL 1-[address] (WELLBUTRIN 13:02: mouth Hospi ta XL) 300 MG 39 daily. l 24 hr tablet ascorbic 2022-0 Yes 500mg Q.69114593 Take 500 [facility] acid, 1-[id number] vitamin C, 13:02: 3D [...] jo-ann 39 l calcium 2021-0 Yes 667mg Q.48122701 Take 667 [facility] acetate 1-[id number] (PHOSLO) 13:02: 3D mouth [...] 39 nightly. l calcium 2021-0 Yes 1334mg Q.50570145 Take 1,334 Methodi acetate,domingo 1-18 [id number] mg by s t sphat bind, 13:02: 3D mouth 3 Hos whit (Phoslyra) 39 (three) l 667 mg (169 times a mg day. calcium)/5 mL solution cyproheptad 2021-0 Yes 4mg Q.87882142 Take 4 mg [facility] ine 1-18 [id number] [address] mouth [address] (PERIACTIN) 13:02: 3D (three) Hos whit 4 mg tablet 39 times a l day as needed for allergies. buPROPion 2021-0 Yes 300mg QD Take 300 Met hodi XL 1-[address] (WELLBUTRIN 13:02: mouth Hospi ta XL) 300 MG 39 daily. l 24 hr tablet ascorbic 2021-0 Yes 500mg Q.61489934 Take 500 [facility] acid, 1-[id number] vitamin C, 13:02: 3D [...] jo-ann 39 l calcium 2021-0 Yes 667mg Q.03047385 Take 667 [facility] acetate 1-[id number] (PHOSLO) 13:02: 3D mouth [...] 39 nightly. l calcium 2021-0 Yes 1334mg Q.18542640 Take 1,334 Methodi acetate,domingo 1-18 [id number] mg by s t sphat bind, 13:02: 3D mouth 3 Hos whit (Phoslyra) 39 (three) l 667 mg (169 times a mg day. calcium)/5 mL solution cyproheptad 2021-0 Yes 4mg Q.41389189 Take 4 mg [facility] ine 1-18 [id number] [address] (PERIACTIN) 13:02: 3D (three) Hos whit 4 mg tablet 39 times a l day as needed for allergies. buPROPion 2021-0 Yes 300mg QD Take 300 Met [facility]odi XL 1-[address] (WELLBUTRIN 13:02: mouth Hospi ta XL) 300 MG 39 daily. l 24 hr tablet ascorbic 2021-0 Yes 500mg Q.70431420 Take 500 [facility] acid, 1-[id number] vitamin C, 13:02: 3D [...] jo-ann 39 l calcium 2022-0 Yes 667mg Q.44197096 Take 667 [facility] acetate 1-[id number] (PHOSLO) 13:02: 3D mouth [...] 39 nightly. l calcium 2021-0 Yes 1334mg Q.53462518 Take 1,334 Methodi acetate,domingo 1-18 [id number] mg by s t sphat bind, 13:02: 3D mouth 3 Hos whit (Phoslyra) 39 (three) l 667 mg (169 times a mg day. calcium)/5 mL solution cyproheptad 2021-0 Yes 4mg Q.22391688 Take 4 mg [facility] ine 1-18 [id number] [address] mouth [address] (PERIACTIN) 13:02: 3D (three) Hos whit 4 mg tablet 39 times a l day as needed for allergies. buPROPion 2021-0 Yes 300mg QD Take 300 Met [facility]odi XL 1-[address] (WELLBUTRIN 13:02: mouth Hospi ta XL) 300 MG 39 daily. l 24 hr tablet ascorbic 2021-0 Yes 500mg Q.11919163 Take 500 [facility] acid, 1-[id number] vitamin C, 13:02: 3D [...] jo-ann 39 l calcium 2021-0 Yes 667mg Q.62562921 Take 667 [facility] acetate 1-[id number] (PHOSLO) 13:02: 3D mouth [...] 39 nightly. l calcium 2021-0 Yes 1334mg Q.10438376 Take 1,334 Methodi acetate,domingo 1-18 [id number] mg by s t sphat bind, 13:02: 3D mouth 3 Hos whit (Phoslyra) 39 (three) l 667 mg (169 times a mg day. calcium)/5 mL solution cyproheptad 2021-0 Yes 4mg Q.79905572 Take 4 mg [facility] ine 1-18 [id number] [address] [facility] [address] (PERIACTIN) 13:02: 3D (three) Hos whit 4 mg tablet 39 times a l day as needed for allergies. buPROPion 2021-0 Yes 300mg QD Take 300 Met [facility] XL 1-[address] (WELLBUTRIN 13:02: mouth Hospi ta XL) 300 MG 39 daily. l 24 hr tablet ascorbic 2021-0 Yes 500mg Q.56719424 Take 500 [facility] acid, 1-[id number] vitamin C, 13:02: 3D [...] jo-ann 39 l calcium 2021-0 Yes 667mg Q.03225331 Take 667 [facility] acetate 1-[id number] (PHOSLO) 13:02: 3D mouth [...] 39 nightly. l calcium 2022-0 Yes 1334mg Q.43184679 Take 1,334 Methodi acetate,domingo 1-18 [id number] mg by s t sphat bind, 13:02: 3D mouth 3 Hos whit (Phoslyra) 39 (three) l 667 mg (169 times a mg day. calcium)/5 mL solution cyproheptad 2021-0 Yes 4mg Q.[id number] Take 4 mg [facility] ine 1-18 [id number] (PERIACTIN) 13:02: 3D (three) Hos whit 4 mg tablet 39 times a l day as needed for allergies. buPROPion 2021-0 Yes 300mg QD Take 300 Met [facility]odi XL 1-[address] (WELLBUTRIN 13:02: mouth Hospi ta XL) 300 MG 39 daily. l 24 hr tablet ascorbic 2021-0 Yes 500mg Q.88745802 Take 500 [facility] acid, 1-[id number] vitamin C, 13:02: 3D [...] jo-ann 39 l calcium 2021-0 Yes 667mg Q.12220870 Take 667 [facility] acetate 1-[id number] (PHOSLO) 13:02: 3D mouth [...] 39 nightly. l calcium 2021-0 Yes 1334mg Q.17136658 Take 1,334 Methodi acetate,domingo 1-18 [id number] mg by s t sphat bind, 13:02: 3D mouth 3 Hos whit (Phoslyra) 39 (three) l 667 mg (169 times a mg day. calcium)/5 mL solution cyproheptad 2-0 Yes 4mg Q.84618979 Take 4 mg [facility] ine 1-18 [id number] [address] mouth [address] (PERIACTIN) 13:02: 3D (three) Hos whit 4 mg tablet 39 times a l day as needed for allergies. buPROPion 202-0 Yes 300mg QD Take 300 Met [facility] XL 1-[address] (WELLBUTRIN 13:02: mouth Hospi ta XL) 300 MG 39 daily. l 24 hr tablet ascorbic 2022-0 Yes 500mg Q.33245043 Take 500 [facility] acid, 1-[id number] vitamin C, 13:02: 3D mouth 3 Hosp jo-ann (ascorbic 39 (three) l acid with times a sia hips) day. 500 MG tablet clonAZEPAM 2021-0 Yes .5mg Take 0.5 [facility] (KlonoPIN) 1-[address] 0.5 MG 13:02: mouth as Hospita tablet 39 needed for l anxiety. glipiZIDE 202-0 Yes 5mg Take 5 mg [facility] (GLUCOTROL) 1-[address] 5 MG tablet 13:02: daily. Hosp jo-ann 39 l calcium 2021-0 Yes 667mg Q.46959755 Take 667 [facility] acetate 1-[id number] (PHOSLO) 13:02: 3D mouth [...] 39 nightly. l calcium 2021-0 Yes 1334mg Q.41457470 Take 1,334 Methodi acetate,domingo 1-18 [id number] mg by s t sphat bind, 13:02: 3D mouth 3 Hos whit (Phoslyra) 39 (three) l 667 mg (169 times a mg day. calcium)/5 mL solution cyproheptad 2021-0 Yes 4mg Q.76118344 Take 4 mg [facility] ine 1-18 [id number] [address] mouth [address] (PERIACTIN) 13:02: 3D (three) Hos whit 4 mg tablet 39 times a l day as needed for allergies. buPROPion 2021-0 Yes 300mg QD Take 300 Met [facility] XL 1-[address] (WELLBUTRIN 13:02: mouth Hospi ta XL) 300 MG 39 daily. l 24 hr tablet ascorbic 2022-0 Yes 500mg Q.95434541 Take 500 [facility] acid, 1-[id number] vitamin C, 13:02: 3D [...] jo-ann 39 l calcium 2021-0 Yes 667mg Q.99279785 Take 667 [facility] acetate 1-[id number] (PHOSLO) 13:02: 3D mouth [...] l 50 mg 24 hr tablet divalproex Yes 500mg Q.5D Take 500 [facility] (DEPAKOTE) 1-[address] 500 MG EC 13:02: mouth 2 Hospi ta tablet 39 (two) l times a day. pravastatin Yes 40mg QD Take 40 mg Methodi [...] mg at night vancomycin 2020-06 No 750mg Q.57688954 Infuse 750 [facility] 750 mg in 07-08 [id number] mg into a [facility] sodium 00:00: 05:59 3W venous [facility] chloride 00 :00 catheter 3 l 0.9% 250 mL (three) IVPB times a week for 19 days. Administer 3 times weekly in dialysis vancomycin 2020-06- No 750mg Q.07889409 Infuse 750 [facility] 750 mg in 07-08 [id number] mg [address] sodium 00:00: 05:59 3W venous [facility] chloride 00 :00 catheter 3 l 0.9% 250 mL (three) IVPB times a week for 19 days. Administer 3 times weekly in dialysis vancomycin 2020-06- No 750mg Q.49340306 Infuse 750 [facility] 750 mg in 07-[id number] sodium 00:00: 05:59 3[facility] venous [facility] chloride 00 :00 catheter 3 l 0.9% 250 mL (three) IVPB times a week for 19 days. Administer 3 times weekly in dialysis vancomycin 2020-06- No 750mg Q.78980933 Infuse 750 [facility] 750 mg in 07-[id number] sodium 00:00: 05:59 3[facility] venous [facility] chloride 00 :00 catheter 3 l 0.9% 250 mL (three) IVPB times a week for 19 days. Administer 3 times weekly in dialysis vancomycin 2020-06- No 750mg Q.38634446 Infuse 750 [facility] 750 mg in 07-08 [id number] mg [address] sodium 00:00: 05:59 3[facility] venous [facility] chloride 00 :00 catheter 3 l 0.9% 250 mL (three) IVPB times a week for 19 days. Administer 3 times weekly in dialysis vancomycin 2020-06- No 750mg Q.[id number] Infuse 750 [facility] 750 mg in 07-08 [id number] mg into a [facility] sodium 00:00: 05:59 [facility] chloride 00 :00 catheter 3 l 0.9% 250 mL (three) IVPB times a week for 19 days. Administer 3 times weekly in dialysis vancomycin 2020-06- No 750mg Q.[id number] Infuse 750 [facility] 750 mg in 07-08 [id number] mg into a [facility] sodium 00:00: 05:59 [facility] chloride 00 :00 catheter 3 l 0.9% 250 mL (three) IVPB times a week for 19 days. Administer 3 times weekly in dialysis vancomycin 2020-06- No 750mg Q.[id number] Infuse 750 [facility] 750 mg in 07-[id number] mg into a [address] sodium 00:00: 05:59 [facility] chloride 00 :00 catheter 3 l 0.9% 250 mL (three) IVPB times a week for 19 days. Administer 3 times weekly in dialysis vancomycin 2020-06- No 750mg Q.[id number] Infuse 750 [facility] 750 mg in 07-[id number] mg [address] sodium 00:00: 05:59 [facility] chloride 00 :00 catheter 3 l 0.9% 250 mL (three) IVPB times a week for 19 days. Administer 3 times weekly in dialysis vancomycin 2020-06- No 750mg Q.[id number] Infuse 750 [facility] 750 mg in 07-[id number] mg into [address] sodium 00:00: 05:59 [facility] chloride 00 :00 catheter 3 l 0.9% 250 mL (three) IVPB times a week for 19 days. Administer 3 times weekly in dialysis vancomycin 2020-06- No 750mg [id number] Infuse 750 [facility] 750 mg in 07-08 [id number] mg [address] sodium 00:00: 05:59 [facility] chloride 00 :00 catheter 3 l 0.9% 250 mL (three) IVPB times a week for 19 days. Administer 3 times weekly in dialysis vancomycin 2020-06- No 750mg [id number] Infuse 750 [facility] 750 mg in 07-08 [id number] mg into a [address] sodium 00:00: 05:59 [facility] chloride 00 :00 catheter 3 l 0.9% 250 mL (three) IVPB times a week for 19 days. Administer 3 times weekly in dialysis vancomycin 2020-06- No 750mg [id number] Infuse 750 [facility] 750 mg in 07-08 [id number] mg into a [address] sodium 00:00: 05:59 [facility] venous [facility] chloride 00 :00 catheter 3 l 0.9% 250 mL (three) IVPB times a week for 19 days. Administer 3 times weekly in dialysis HYDROcodone 2020-06 1{tbl} Q6H Take 1 [facility] -acetaminop 06-[address] [employer] [facility] [place] (Easy Tempo) 00:00: 05:59 mouth [facility] 5-325 mg 00 :00 every 6 l per tablet (six) hours as needed for severe pain for up to 5 days .acute pain. Max Daily Amount: 4 tablets HYDROcodone 2020-06 1{tbl} Q6H Take 1 [facility] -acetaminop -19 07- tablet by [facility] [place] (Easy Tempo) 00:00: 05:59 mouth [facility] 5-325 mg 00 :00 every 6 l per tablet (six) hours as needed for severe pain for up to 5 days .acute pain. Max Daily Amount: 4 tablets HYDROcodone 2020-06 1{tbl} Q6H Take 1 [facility] -acetaminop 06-24 tablet by [employer] (Easy Tempo) 00:00: 05:59 mouth [facility] 5-325 mg 00 :00 every 6 l per tablet (six) hours as needed for severe pain for up to 5 days .acute pain. Max Daily Amount: 4 tablets HYDROcodone 2020-06 1{tbl} Q6H Take 1 [facility] -acetaminop 2-29 -[address] [facility] ([facility]) 00:00: 05:59 mouth [facility] 5-325 mg 00 :00 every 6 l per tablet (six) hours as needed for severe pain for up to 5 days .acute pain. Max Daily Amount: 4 tablets HYDROcodone 2020-06 1{tbl} Q6H Take 1 [facility] -acetaminop 2-29 -[address] [facility] ([facility]) 00:00: 05:59 mouth [facility] 5-325 mg 00 :00 every 6 l per tablet (six) hours as needed for severe pain for up to 5 days .acute pain. Max Daily Amount: 4 tablets HYDROcodone 2020-06 1{tbl} Q6H Take 1 [facility] -acetaminop 2-29 -[address] [facility] ([facility]) 00:00: 05:59 mouth [facility] 5-325 mg 00 :00 every 6 l per tablet (six) hours as needed for severe pain for up to 5 days .acute pain. Max Daily Amount: 4 tablets HYDROcodone 2020-06 1{tbl} Q6H Take 1 [facility] -acetaminop 2-29 -[address] [facility] ([facility]) 00:00: 05:59 mouth [facility] 5-325 mg 00 :00 every 6 l per tablet (six) hours as needed for severe pain for up to 5 days .acute pain. Max Daily Amount: 4 tablets HYDROcodone 2020-06 1{tbl} Q6H Take 1 [facility] -acetaminop 2-29 -[address] [facility] ([facility]) 00:00: 05:59 mouth [facility] 5-325 mg 00 :00 every 6 l per tablet (six) hours as needed for severe pain for up to 5 days .acute pain. Max Daily Amount: 4 tablets HYDROcodone 2020-06 1{tbl} Q6H Take 1 [facility] -acetaminop 2-29 01-[address] [facility] ([facility]) 00:00: 05:59 mouth [facility] 5-325 mg 00 :00 every 6 l per tablet (six) hours as needed for severe pain for up to 5 days .acute pain. Max Daily Amount: 4 tablets HYDROcodone 2020-06- No [id number] 1{tbl} Q6H Take 1 [facility] -acetaminop 2-29 -[address] [facility] ([facility]) 00:00: 05:59 mouth [facility] 5-325 mg 00 :00 every 6 l per tablet (six) hours as needed for severe pain for up to 5 days .acute pain. Max Daily Amount: 4 tablets HYDROcodone 2020-06- No [id number] 1{tbl} Q6H Take 1 [facility] -acetaminop 2-29 -[address] [employer] [facility] [place] (Easy Tem[employer]) 00:00: 05:59 mouth [facility] 5-325 mg 00 :00 every 6 l per tablet (six) hours as needed for severe pain for up to 5 days .acute pain. Max Daily Amount: 4 tablets HYDROcodone 2020-06- No [id number] 1{tbl} Q6H Take 1 [facility] -acetaminop 2-29 -[address] [facility] [place] ([employer]) 00:00: 05:59 mouth [facility] 5-325 mg 00 :00 every 6 l per tablet (six) hours as needed for severe pain for up to 5 days .acute pain. Max Daily Amount: 4 tablets HYDROcodone 2020-06- No [id number] 1{tbl} Q6H Take 1 [facility] -acetaminop 2-29 -[address] [facility] ([facility]) 00:00: 05:59 mouth [facility] 5-325 mg [...] mouth st (ALDACTONE) 10:21: 00:00 daily. Hos [facility] 50 MG 19 :00 l tablet clopidogreL [...] 30 per tablet days. HYDROcodone 2020-06- No [id number] 2{tbl} Q8H Take 2 [facility] -acetaminop 2-05 12-13 tablets by [employer] ([employer]) 00:00: 05:59 mouth [facility] 5-325 mg 00 :00 every 8 l per tablet (eight) hours as needed for severe pain for up to 7 days .acute pain. Max Daily Amount: 6 tablets HYDROcodone 2020-0628 2{tbl} Q8H Take 2 [facility] -acetaminop 2-05 12-13 tablets by s t hen (Easy Tempo) 00:00: 05:59 mouth [facility] 5-325 mg 00 :00 every 8 l per tablet (eight) hours as needed for severe pain for up to 7 days .acute pain. Max Daily Amount: 6 tablets HYDROcodone 2020-06 2{tbl} Q8H Take 2 [facility] -acetaminop 2-05 12-13 tablets by s t hen (Easy Tempo) 00:00: 05:59 mouth [facility] 5-325 mg 00 :00 every 8 l per tablet (eight) hours as needed for severe pain for up to 7 days .acute pain. Max Daily Amount: 6 tablets HYDROcodone 2020-0628 2{tbl} Q8H Take 2 [facility] -acetaminop 2-05 12-13 tablets by s t hen (Easy Tem[employer]) 00:00: 05:59 mouth [facility] 5-325 mg 00 :00 every 8 l per tablet (eight) hours as needed for severe pain for up to 7 days .acute pain. Max Daily Amount: 6 tablets HYDROcodone 2020-06 2{tbl} Q8H Take 2 [facility] -acetaminop 2-05 12-13 tablets by s t hen ([facility] Tempo) 00:00: 05:59 mouth [facility] 5-325 mg 00 :00 every 8 l per tablet (eight) hours as needed for severe pain for up to 7 days .acute pain. Max Daily Amount: 6 tablets HYDROcodone 2020-06 2{tbl} Q8H Take 2 [facility] -acetaminop 2-05 12-13 tablets by s t hen (Easy Tempo) 00:00: 05:59 mouth [facility] 5-325 mg 00 :00 every 8 l per tablet (eight) hours as needed for severe pain for up to 7 days .acute pain. Max Daily Amount: 6 tablets HYDROcodone 2021-1 2021- No [id number] 2{tbl} Q8H Take 2 [facility] -acetaminop 2-05 12-13 tablets by s t hen (Easy Tem[employer]) 00:00: 05:59 mouth [facility] 5-325 mg 00 :00 every 8 l per tablet (eight) hours as needed for severe pain for up to 7 days .acute pain. Max Daily Amount: 6 tablets HYDROcodone 2020-06 No [id number] 2{tbl} Q8H Take 2 [facility] -acetaminop 2-05 12-13 tablets by s t hen (Easy Tem[employer]) 00:00: 05:59 mouth [facility] 5-325 mg 00 :00 every 8 l per tablet (eight) hours as needed for severe pain for up to 7 days .acute pain. Max Daily Amount: 6 tablets HYDROcodone 2020-06 2{tbl} Q8H Take 2 [facility] -acetaminop 2-05 12-13 tablets by s t hen (Easy Tempo) 00:00: 05:59 mouth [facility] 5-325 mg 00 :00 every 8 l per tablet (eight) hours as needed for severe pain for up to 7 days .acute pain. Max Daily Amount: 6 tablets HYDROcodone 2020-06 No [id number] 2{tbl} Q8H Take 2 [facility] -acetaminop 2-05 12-13 tablets by s t hen (Easy Tempo) 00:00: 05:59 mouth [facility] 5-325 mg 00 :00 every 8 l per tablet (eight) hours as needed for severe pain for up to 7 days .acute pain. Max Daily Amount: 6 tablets HYDROcodone 2020-06 No [id number] 2{tbl} Q8H Take 2 [facility] -acetaminop 2-05 12-13 tablets by s t hen (Easy Tempo) 00:00: 05:59 mouth [facility] 5-325 mg 00 :00 every 8 l per tablet (eight) hours as needed for severe pain for up to 7 days .acute pain. Max Daily Amount: 6 tablets predniSONE 2020-06 No [id number] Take M ethodi (DELTASONE) 07-18-05 Prednisone s t 50 mg 00:00: 00:00 50mg 13 Hospita tablet 00 :00 hours, 7 l hours, and 1 hour prior to scheduled procedure on 05/19/2021 for contrast allergy prophylaxi s. predniSONE 2020-06- No [id number] Take M ethodi (DELTASONE) 07-18 12-05 Prednisone s t 50 mg 00:00: 00:00 50mg 13 [facility]ospita tablet 00 :00 hours, 7 l hours, and 1 hour prior to scheduled procedure on 05/19/2021 for contrast allergy prophylaxi s. predniSONE 2020-06- No [id number] Take M ethodi (DELTASONE) 07-18 12-05 Prednisone s t 50 mg 00:00: 00:00 50mg 13 [facility]ospita tablet 00 :00 hours, 7 l hours, and 1 hour prior to scheduled procedure on 05/19/2021 for contrast allergy prophylaxi s. predniSONE 2020-06- No [id number] Take M ethodi (DELTASONE) 07-18 12-05 Prednisone s t 50 mg 00:00: 00:00 50mg 13 [facility]ospita tablet 00 :00 hours, 7 l hours, and 1 hour prior to scheduled procedure on 05/19/2021 for contrast allergy prophylaxi s. predniSONE 2020-06- No [id number] Take M ethodi (DELTASONE) 07-18 12-05 Prednisone s t 50 mg 00:00: 00:00 50mg 13 [facility]ospita tablet 00 :00 hours, 7 l hours, and 1 hour prior to scheduled procedure on 05/19/2021 for contrast allergy prophylaxi s. predniSONE 2020-06- No [id number] Take M ethodi (DELTASONE) 07-18 12-05 Prednisone s t 50 mg 00:00: 00:00 50mg 13 [facility]ospita tablet 00 :00 hours, 7 l hours, and 1 hour prior to scheduled procedure on 05/19/2021 for contrast allergy prophylaxi s. predniSONE 2020-06- No [id number] Take M ethodi (DELTASONE) 07-18 12-05 Prednisone s t 50 mg 00:00: 00:00 50mg 13 Hospita tablet 00 :00 hours, 7 l hours, and 1 hour prior to scheduled procedure on 05/19/2021 for contrast allergy prophylaxi s. predniSONE 2020-06- No [id number] Take M ethodi (DELTASONE) 07-18 12-05 Prednisone s t 50 mg 00:00: 00:00 50mg 13 Hospita tablet 00 :00 hours, 7 l hours, and 1 hour prior to scheduled procedure on 05/19/2021 for contrast allergy prophylaxi s. predniSONE 2020-06- No [id number] Take M ethodi (DELTASONE) 07-18 12 Prednisone s t 50 mg 00:00: 00:00 50mg 13 [facility]ospita tablet 00 :00 hours, 7 l hours, and 1 hour prior to scheduled procedure on 05/19/2021 for contrast allergy prophylaxi s. predniSONE 2020-06- No [id number] Take M ethodi (DELTASONE) 07-18 12 Prednisone [...] by mouth ity of (PROTONIX) 11:08: daily. [place] 20 mg EC Medical tablet Branch Cholecalcif 2020-06 Yes 5000U Take 5,000 Univers mansi, 0-03 Units by ity of Vitamin D3, 11:08: mouth. [place] 125 mcg 01 Medical (5,000 Branch unit) tablet proMETHazin 2020-06 Yes 25mg Take 25 mg Univers e 25 mg 0-03 by mouth. ity of tablet 11:08: [place] [address] Medical Branch aspirin 81 2020-06 Yes 81mg Take 1 Unive rs mg chewable 0-03 tablet by ity of tablet 11:08: mouth [place] [address] daily. Medical Branch linagliptin 2020-06 Yes Take by Uni vers (TRADJENTA) 0-01 mouth. ity of 5 mg tablet 23:08: [address] Branch spironolact 2020-06 Yes 50mg Take 50 mg Univers one 50 mg 0-01 by mouth ity of tablet 23:08: daily. [address] Branch pravastatin 2020-06 Yes 40mg Take 40 mg Univers 40 mg 0-01 by mouth ity of tablet 23:08: daily. [address] Branch mv-mn/iron/ 2020-06 Yes 1{capsu Take 1 U nivers folic 0-01 le} capsule by ity of acid/herb 23:08: mouth [place] [address] daily. Medical (VITAMIN D3 Branch COMPLETE ORAL) SERTraline 2020-06 Yes 50mg Take 50 mg U nivers 50 mg 0-01 by mouth ity of tablet 23:08: daily. [address] Branch calcium 2020-06 Yes 667mg Take 667 Unive rs acetate 667 0-01 mg by ity of mg capsule 23:08: [facility] times Branch daily with meals. cetirizine 2020-06 Yes 1{tbl} Take 1 Uni vers HCl/pseudoe 0-01 tablet by ity of phedrine 23:08: mouth [place] (ZYRTEC-D 36 daily. Medical ORAL) Branch furosemide 2020-06 Yes 40mg Take 40 mg U nivers 40 mg 0-01 by mouth 2 ity of tablet 23:08: (two) [place] [address] times [facility] daily. Branch divalproex 2020-06 Yes 500mg Take 500 Un lori ER 0-01 mg by ity of (DEPAKOTE 23:08: mouth 2 [place] ER) 500 mg 36 (two) Medical 24 hr times Branch tablet daily. gabapentin 2020-06 Yes 100mg Take 100 Un lori 100 mg 0-01 mg by ity of capsule 23:08: mouth 2 [place] [address] (two) Medical times Branch daily. vitamin C 2020-06 Yes 2000mg Take 2,000 Univers with sia 0-01 mg by ity of hips 23:08: mouth 2 [place] (VITAMIN C) (two) Medical 1,000 mg times Branch tablet daily. metoprolol 2020-06 Yes 50mg Take 50 mg U nivers tartrate 50 0-01 by mouth ity of mg tablet 23:08: daily. [address] Branch folic 2020-06 Yes 800mg Take 800 Univers acid/vit B 0-01 mg by ity of complex and 23:08: mouth [place] C daily. Medical (DIALYVITE Branch 800 ORAL) linagliptin 2020-06 Yes Take by Uni vers (TRADJENTA) 0-01 mouth. ity of 5 mg tablet 23:08: [address] Branch spironolact 2020-06 Yes 50mg Take 50 mg Univers one 50 mg 0-01 by mouth ity of tablet 23:08: daily. [address] Branch pravastatin 2020-06 Yes 40mg Take 40 mg Univers 40 mg 0-01 by mouth ity of tablet 23:08: daily. [place] [address] Medical Branch mv-mn/iron/ 2020-06 Yes 1{capsu Take 1 U nivers folic 0-01 le} capsule by ity of acid/herb 23:08: mouth [place] 190 36 daily. Medical (VITAMIN D3 Branch COMPLETE ORAL) SERTraline 2020-06 Yes 50mg Take 50 mg U nivers 50 mg 0-01 by mouth ity of tablet 23:08: daily. [place] [address] Medical Branch calcium 2020-06 Yes 667mg Take [...] mouth 2 ity of tablet 23:08: (two) [place] [address] times Medical daily. Branch divalproex 2020-06 Yes 500mg Take 500 Un lori ER 0-01 mg by ity of (DEPAKOTE 23:08: mouth 2 [place] ER) 500 mg 36 (two) Medical 24 hr times Branch tablet daily. gabapentin 2020-06 Yes 100mg Take 100 Un lori 100 mg 0-01 mg by ity of capsule 23:08: mouth 2 [place] 36 (two) Medical times Branch daily. vitamin C 2020-06 Yes 2000mg Take 2,000 Univers with sia 0-01 mg by ity of hips 23:08: mouth 2 [place] (VITAMIN C) 36 (two) Medical 1,000 mg times Branch tablet daily. metoprolol 2020-06 Yes 50mg Take 50 mg U nivers tartrate 50 0-01 by mouth ity of mg tablet 23:08: daily. [place] [address] Medical Branch folic 2020-06 Yes 800mg Take 800 Univers acid/vit B 0-01 mg by ity of complex and 23:08: mouth [place] C 36 daily. Medical (DIALYVITE Branch 800 ORAL) BUPROPION 2020-06- No 300mg Take 300 Un [...] janice 8-11 (Same as: l 01:36: Mylicon) [place] Simethicone No Notes: [place] janice 8-11 (Same as: l 01:36: Mylicon) [place] Simethicone No Notes: [place] janice 8-11 (Same as: l 01:36: Mylicon) Vin epoetin Yes 2,000 unit [place] janice giovanny-epbx 8-10 = 1 mL, l 1999 19:37: IV, [place] units/mL 00 Q-M-W-F, preservativ to be e-free given at injectable post solution Dialysis sessions, 0 Refill(s) epoetin Yes 2,000 unit [place] janice giovanny-epbx 8-10 = 1 mL, l 1999 19:37: IV, [place] units/mL 00 , preservativ to be e-free given at injectable post solution Dialysis sessions, 0 Refill(s) epoetin 2020-0 Yes 2,000 unit [place] janice giovanny-epbx 8-10 = 1 mL, l 1999 19:37: IV, [place] units/mL 00 , preservativ to be e-free [...] Oral 8-10 cap, PO, l Capsule 19:34: -F, # Herm naeem 00 13 cap, 0 Refill(s) amLODIPine 2020-0 Yes [...] tab, PO, l tablet 19:33: Daily, # [place] 00 14 tab, 0 Refill(s) amLODIPine 2020-0 Yes 10 mg = 1 Me moria 10 mg oral 8-10 tab, PO, l tablet 19:33: Daily, # Vin 00 30 tab, 2 Refill(s) busPIRone 2020-0 Yes 7.5 mg = 1 Me moria 7.5 mg oral 8-10 tab, PO, l tablet 19:33: BID, 0 [place] 00 Refill(s) buPROPion 2020-0 Yes 75 mg = 1 Mem oria 75 mg oral 8-10 tab, PO, l tablet 19:33: Daily, # Vin 00 14 tab, 0 Refill(s) amLODIPine 2020-0 Yes 10 mg = 1 Me moria 10 mg oral 8-10 tab, PO, l tablet 19:33: Daily, # [place] 00 30 tab, 2 Refill(s) busPIRone 2020-0 Yes 7.5 mg = 1 Me moria 7.5 mg oral 8-10 tab, PO, l tablet 19:33: BID, 0 [place] 00 Refill(s) buPROPion 2020-0 Yes 75 mg [...] tab, PO, l tablet 19:33: Daily, # [place] 00 14 tab, 0 Refill(s) amLODIPine Yes 10 mg = 1 Me moria 10 mg oral 8-10 tab, PO, l tablet 19:33: Daily, # [place] 00 30 tab, 2 Refill(s) busPIRone Yes 7.5 mg = 1 Me moria 7.5 mg oral 8-10 tab, PO, l tablet 19:33: BID, 0 Vin 00 Refill(s) buPROPion Yes 75 mg = 1 Mem oria 75 mg oral 8-10 tab, PO, l tablet 19:33: Daily, # Vin 00 14 tab, 0 Refill(s) Norvasc No Notes: [facility] 8-10 (Same as: l 17:35: Norvasc) [place] 00 Norvasc No Notes: Mem[facility] 8-10 (Same [...] WASTE: F/P l 22:00: - Red; E [place] Red MEDICIATIO N WASTE Product Size: 2,000 unit Product Wasted: ____unit Epogen No Notes: 01-27 WASTE: F/P l 22:00: - Red; E [place] Red MEDICIATIO N WASTE Product Size: 2,000 [...] mL 01-27 Rate: 20 l 20:28: ml/hr, [place] Infuse over: 50 hr, Route: IV, Dosing [...] 01-27 not exceed l 09:29: 4 gm/day. [place] (Same as: Tylenol) tramadol No Notes: Not [...] 01-27 not exceed l 09:29: 4 gm/day. [place] 00 (Same as: Tylenol) tramadol No Notes: Not Mem oria hydrochlori - to exceed l de 50 MG 09:29: 400mg/day. Her braden Oral Tablet 00 (Same As: Ultram) Tylenol No Notes: Do Memor ia - not exceed l 09:29: 4 gm/day. Vin 00 (Same as: Tylenol) tramadol No Notes: Not Mem oria hydrochlori - to exceed l de 50 MG 09:29: 400mg/day. Her braden Oral Tablet 00 (Same As: Ultram) Tylenol No Notes: Do Memor ia 01-27 not exceed l 09:29: 4 gm/day. [place] 00 (Same as: Tylenol) tramadol No Notes: Not Mem oria hydrochlori 01-27 to exceed l de 50 MG 09:29: 400mg/day. Her braden Oral Tablet 00 (Same As: Ultram) heparin No Notes: Memoria 01-27 porcine l 02:00: heparin Vin heparin No Notes: Memoria 01-27 porcine l 02:00: heparin [place] 00 heparin No Notes: Memoria 01-27 porcine l 02:00: heparin Vin 00 heparin No Notes: [facility]oria 01-27 porcine l 02:00: heparin Vin 00 heparin No Notes: Memoria 01-27 porcine l 02:00: heparin Vin 00 Magnesium No Notes: Memori a Oxide 01-23 (Same as: l 22:54: Mag-Ox Vin 400) Magnesium oxide [id number] g elemental magnesium Dose=____m g magnesium oxide (___mg elemental magnesium) Magnesium No Notes: Memori a Oxide 01-23 (Same as: l 22:54: Mag-Ox Vin 400) Magnesium oxide 949wp=642p g elemental magnesium Dose=____m g magnesium oxide (___mg elemental magnesium) Magnesium No Notes: Memori a Oxide 01-23 (Same as: l 22:54: Mag-Ox Vin 400) Magnesium oxide [id number]=578y g elemental magnesium Dose=____m g magnesium oxide (___mg elemental magnesium) Magnesium No Notes: Memori a Oxide - (Same as: l 22:54: Mag-Ox [place] 400) Magnesium oxide 691nb=041j g elemental magnesium Dose=____m g magnesium oxide (___mg elemental magnesium) Magnesium No Notes: Memori a Oxide 8 (Same as: l 22:54: Mag-Ox Vin 400) Magnesium oxide [id number] g elemental magnesium Dose=____m g magnesium oxide (___mg elemental magnesium) Coreg No Notes: Memoria 8-05 Give with l 02:00: food. Vin (Same As: Coreg) Coreg No Notes: Memoria 8-05 Give with l 02:00: food. Vin 00 (Same As: Coreg) Coreg No Notes: Memoria 8-05 Give with l 02:00: food. [place] 00 (Same As: Coreg) Coreg No Notes: Memoria 8-05 Give with l 02:00: food. Vin 00 (Same As: Coreg) Coreg No Notes: Memoria 8-05 Give with l 02:00: food. Vin 00 (Same As: Coreg) Buspar No Notes: [facility]oria 8-04 (Same As: l 22:00: BuSpar) [place] 00 Buspar No Notes: [facility]oria 8-04 (Same As: l 22:00: BuSpar) Vin Buspar No Notes: Memoria 8-04 (Same As: l 22:00: BuSpar) [place] Buspar No Notes: [facility] 8-04 (Same As: l 22:00: BuSpar) [place] 00 Buspar No Notes: [facility]oria 8-04 (Same As: l 22:00: BuSpar) [place] 00 Fentanyl No Notes: Memoria 8-04 (Same as: l 21:06: Sublimaze) [place] Preservati ve free. Fentanyl No Notes: Memoria 8-04 (Same as: l 21:06: Sublimaze) Vin 00 Preservati ve free. Fentanyl No Notes: Memoria 8-04 (Same as: l 21:06: Sublimaze) [place] Preservati ve free. Fentanyl No Notes: Memoria 8-04 (Same as: l 21:06: Sublimaze) [place] 00 Preservati ve free. Fentanyl No Notes: Memoria 8-04 (Same as: l 21:06: Sublimaze) [place] Preservati ve free. Norvasc No Notes: Memoria 8-04 (Same as: l 16:47: Norvasc) [place] Norvasc No Notes: Memoria 8-04 (Same as: l 16:47: Norvasc) [place] Norvasc No Notes: Memoria 8-04 (Same as: l 16:47: Norvasc) Vin 00 Norvasc No Notes: Memoria 8-04 (Same as: l 16:47: Norvasc) [place] Norvasc No Notes: Memoria 8-04 (Same as: l 16:47: Norvasc) [place] 00 Wellbutrin No Notes: Memor ia 8-04 [...] mg 14:00: Toprol XL) He rm oral October split tablet, tab, but extended [...] No Notes: Memor ia 40 MG Oral 8- (Same as: l Tablet 14:00: Lasix) October [...] Memoria 8- (Same as: l 14:00: Zoloft) pantoprazol No [...] 8 (Same as: l Tablet 14:00: Lasix) October cause GI upset. Give with food or milk. Tradjenta No 5 mg, 1 Memor ia 8-04 tab, l 14:00: Route: PO, Drug form: TAB, Daily, Dosing Weight 72, kg, Start date: 01/22/21 9:00:00 CDT Metoprolol No Notes: Memor ia Succinate 8-04 (Same as: l ER 100 mg 14:00: Toprol XL) He rm oral 00 May split tablet, tab, but [...] janice 8-04 (Same as: l 14:00: Pravachol) Vin Zoloft No Notes: Memoria 8-04 (Same as: l 14:00: Zoloft) [place] 00 Tramadol No Notes: Not Mem oria 8-04 to exceed l 09:44: 400mg/day. [place] 00 (Same As: Ultram) Tylenol No Notes: Do Memor ia 8-04 not exceed l 09:44: 4 gm/day. Vin 00 (Same as: Tylenol) Fentanyl No Notes: Memoria 8-04 (Same as: l 09:44: Sublimaze) [place] 00 Preservati ve free. Tramadol No Notes: Not Mem oria 8-04 to exceed l 09:44: 400mg/day. [place] 00 (Same As: Ultram) Tylenol No Notes: Do Memor ia 8-04 not exceed l 09:44: 4 gm/day. Vin 00 (Same as: Tylenol) Fentanyl No Notes: Memoria 8-04 (Same as: l 09:44: Sublimaze) [place] Preservati ve free. Tramadol No Notes: Not Mem oria 8-04 to exceed l 09:44: 400mg/day. [place] 00 (Same As: Ultram) Tylenol No Notes: Do Memor ia 8-04 not exceed l 09:44: 4 gm/day. [place] (Same as: Tylenol) Fentanyl No Notes: Memoria 8-04 (Same as: l 09:44: Sublimaze) [place] 00 Preservati ve free. Tramadol No Notes: Not Mem oria 8-04 to exceed l 09:44: 400mg/day. [place] 00 (Same As: Ultram) Tylenol No Notes: Do Memor ia 8-04 not exceed l 09:44: 4 gm/day. [place] 00 (Same as: Tylenol) Fentanyl No Notes: Memoria 8-04 (Same as: l 09:44: Sublimaze) [place] 00 Preservati ve free. Tramadol No Notes: Not Mem oria 8-04 to exceed l 09:44: 400mg/day. [place] 00 (Same As: Ultram) Tylenol No Notes: Do Memor ia 8-04 not exceed l 09:44: 4 gm/day. Vin 00 (Same as: Tylenol) Fentanyl No Notes: Memoria 8-04 (Same as: l 09:44: Sublimaze) Vin 00 Preservati ve free. Fentanyl No Notes: Memoria 8-04 (Same as: l 04:46: Sublimaze) Vin 00 Preservati ve free. Fentanyl No Notes: Memoria 8-04 (Same as: l 04:46: Sublimaze) [place] 00 Preservati ve free. Fentanyl No Notes: Memoria 8-04 (Same as: l 04:46: Sublimaze) Vin 00 Preservati ve free. Fentanyl No Notes: Memoria 8-04 (Same as: l 04:46: Sublimaze) Vin 00 Preservati ve free. Fentanyl No Notes: Memoria 8-04 (Same as: l 04:46: Sublimaze) [place] 00 Preservati ve free. Fentanyl No Notes: Memoria 8-04 (Same as: l 02:01: Sublimaze) Vin 00 Preservati ve free. Fentanyl 0 No Notes: Memoria 8-04 (Same as: l 02:01: Sublimaze) [place] 00 Preservati ve free. Fentanyl No Notes: Memoria 8-04 (Same as: l 02:01: Sublimaze) Vin 00 Preservati ve free. Fentanyl 0 No Notes: Memoria 8-04 (Same as: l 02:01: Sublimaze) Vin 00 Preservati ve free. Fentanyl No Notes: Memoria 8-04 (Same as: l 02:01: Sublimaze) [place] 00 Preservati ve free. Coreg No Notes: Memoria 8-04 Give with l 02:00: food. [place] 00 (Same As: Coreg) Saline No Notes: [...] 8-04 2 tab, l 02:00: Route: PO, [place] 00 Drug form: ERTAB, Bedtime, Start date: 01/21/21 21:00:00 CDT, Duration: 30 day, Stop date: 02/19/21 21:00:00 CDT, 0 Coreg No Notes: [facility] 8-04 Give with l 02:00: food. Vin 00 (Same As: Coreg) Saline No Notes: [facility] Flush 0.9% 8- Same as: l 02:00: BD Vin 00 Posiflush Sterile Valproate 0 No 1,000 mg, Mem oria 8-04 2 tab, l 02:00: Route: PO, [place] 00 Drug form: ERTAB, Bedtime, Start date: 01/21/21 21:00:00 CDT, Duration: 30 day, Stop date: 02/19/21 21:00:00 CDT, 0 Coreg 0 No Notes: [facility]oria 8-04 Give with l 02:00: food. Vin (Same As: Coreg) Saline No Notes: [facility]oria Flush 0.9% 01-22 Same as: l 02:00: BD Vin Posiflush Sterile Valproate 0 No 1,000 mg, Mem oria 8-04 2 tab, l 02:00: Route: PO, Vin 00 Drug form: ERTAB, Bedtime, Start date: 01/21/21 21:00:00 CDT, Duration: 30 day, Stop date: 02/19/21 21:00:00 CDT, 0 heparin 2020-0 No Notes: [facility] 8-03 porcine l 21:00: heparin [place] 00 heparin 2020-0 No Notes: Memoria -03 porcine l 21:00: heparin [place] 00 heparin 2020-0 No Notes: Memoria -03 porcine l 21:00: heparin [place] 00 heparin 2020-0 No Notes: [facility]oria 8-03 porcine l 21:00: heparin [place] 00 heparin 2020-0 No Notes: Memoria 8-03 porcine l 21:00: heparin Vin Dextrose 2020-0 No 12.5 gm, Memor ia 50% Syringe 01-21 25 mL, l (D50W) 20:01: Route: Vin 00 IVP, Drug Form: INJ, Dosing Weight 74.5, kg, PRN, PRN Blood Glucose Results, Start date: 01/21/21 15:01:00 CDT, Duration: 30 day, Stop date: 02/20/21 15:00:00 CDT, 0 Glucagon 0 No 1 mg, Memoria 8-03 Route: IM, l 20:01: Drug form: Vin 00 PDR/INJ, PRN, Dosing Weight 74.5, kg, PRN Blood Glucose Results, Start date: 01/21/21 15:01:00 CDT, Duration: 30 day, Stop date: 02/20/21 15:00:00 CDT, 0 Insulin 202-0 No Notes: [facility] Lispro 8-03 (Same as: l 20:01: Humalog) [place] 00 Roll in palms of hands gently; Do not shake vigorously . WASTE: F/P - Black; E - Municipal Trash Bin Stable for 28 days at room temperatur e. Expires in days from ____Date Dextrose 2020-0 No 12.5 gm, Memor ia 50% Syringe 01-21 25 mL, l (D50W) 20:01: Route: [place] 00 IVP, Drug Form: INJ, Dosing Weight 74.5, kg, PRN, PRN Blood Glucose Results, Start date: 01/21/21 15:01:00 CDT, Duration: 30 day, Stop date: 02/20/21 15:00:00 CDT, 0 Glucagon 2020-0 No 1 mg, Memoria 8 Route: IM, l 20:01: Drug form: [place] 00 PDR/INJ, PRN, Dosing Weight 74.5, kg, [...] 01-21 25 mL, l (D50W) 20:01: Route: [place] 00 IVP, Drug Form: INJ, Dosing Weight 74.5, kg, PRN, PRN Blood Glucose Results, Start date: 01/21/21 15:01:00 CDT, Duration: 30 day, Stop date: 02/20/21 15:00:00 CDT, 0 Glucagon 202-0 No 1 mg, Memoria 01-21 Route: IM, l 20:01: Drug form: [place] 00 PDR/INJ, PRN, Dosing Weight 74.5, kg, PRN Blood Glucose Results, Start date: 01/21/21 15:01:00 CDT, Duration: 30 day, Stop date: 02/20/21 15:00:00 CDT, 0 Insulin 202-0 No Notes: [facility] Lispro 01-21 (Same as: l 20:01: Humalog) [place] 00 Roll in palms of hands gently; Do not shake vigorously . WASTE: F/P - Black; E - Municipal Trash Bin Stable for 28 days at room temperatur e. Expires in days from ____Date Dextrose 2020-0 No 12.5 gm, Mem[facility] ia 50% Syringe 01-21 25 mL, l (D50W) 20:01: Route: [place] 00 IVP, Drug Form: INJ, Dosing Weight [...] Lispro 01-21 (Same as: l 20:01: Humalog) [place] 00 Roll in palms of hands gently; [...] Same as: l 200 mL 18:26: Cardene [place] (Titrate.) 00 Concentrat IV 40 mg ion: (0.2 mg /1 ml ) Cardene 40 No Notes: Memor ia mg in NS 01-21 Same as: l 200 mL 18:26: Cardene [place] (Titrate.) 00 Concentrat IV 40 mg ion: (0.2 mg /1 ml ) Cardene 40 No Notes: Memor ia mg in NS 01-21 Same as: l 200 mL 18:26: Cardene [place] (Titrate.) 00 Concentrat IV 40 mg ion: (0.2 mg /1 ml ) Cardene 40 No Notes: Memor ia mg in NS 01-21 Same as: l 200 mL 18:26: Cardene Vin (Titrate.) 00 Concentrat IV 40 mg ion: (0.2 mg /1 ml ) Cyproheptad No 4 mg, 1 Mem oria ine 8-03 tab, l 18:00: Route: PO, [place] 00 Drug form: TAB, TID, Dosing Weight [...] ine 8-03 tab, l 18:00: Route: PO, [place] 00 Drug form: TAB, TID, Dosing Weight 72, kg, Start date: 01/21/21 13:00:00 CDT, Duration: 30 day, Stop date: 02/20/21 9:00:00 CDT Cyproheptad 0 No 4 mg, 1 Mem oria ine 8-03 tab, l 18:00: Route: PO, [place] 00 Drug form: TAB, TID, Dosing Weight 72, kg, Start date: 01/21/21 13:00:00 CDT, Duration: 30 day, Stop date: 02/20/21 9:00:00 CDT Albuterol No Notes: SEE Ny moria 8- RT l 17:49: DOCUMENTAT [place] 00 ION (Same as: Proventil) Albuterol No Notes: SEE Ny moria 8- RT l 17:49: DOCUMENTAT [place] 00 ION (Same as: Proventil) Albuterol No Notes: SEE Ny moria 8- RT l 17:49: DOCUMENTAT Vin 00 ION (Same as: Proventil) Albuterol No Notes: SEE Ny moria 8-03 RT l 17:49: DOCUMENTAT Vin 00 ION (Same as: Proventil) Albuterol No Notes: SEE Ny moria 8-03 RT l 17:49: DOCUMENTAT [place] 00 ION (Same as: Proventil) albuterol No [...] 0.9% 01-21 Same as: l 17:31: BD [place] 00 Posiflush Sterile propofol 10 No Notes: If M emoria mg/mL 01-21 Diprivan - l (Titrate.) 17:31: change Nidia nn IV 1,000 mg 00 bottle & tubing every 12 hr Per state nursing law propofol can only be given by a nurse if patient is intubated or being intubated (unless the nurse is a WHARF ATTENDANT). Same as: Diprivan Nystatin No Notes: Memoria 100 UNT/MG 8-03 (Same l Topical 17:31: as:Mycosta Herm naeem Powder 00 tin, Nilstat) For external use only. Saline No Notes: Memoria Flush 0.9% 8-03 Same as: l 17:31: BD [place] 00 Posiflush Sterile propofol No Notes: If M emoria mg/mL 8-03 Diprivan - l (Titrate.) 17:31: change Nidia nn IV 1,000 mg 00 bottle & tubing every 12 hr Per state nursing law propofol can only be given by a nurse if patient is intubated or being intubated (unless the nurse is a WHARF ATTENDANT). Same as: Diprivan Nystatin No Notes: Memoria [...] being intubated (unless the nurse is a WHARF ATTENDANT). Same as: Diprivan Nystatin No Notes: Memoria [...] being intubated (unless the nurse is a WHARF ATTENDANT). Same as: Diprivan Nystatin No Notes: Memoria [...] being intubated (unless the nurse is a WHARF ATTENDANT). Same as: Diprivan midazolam No Route: IV, Me moria (ANES) 01-21 Drug form: l 17:18: SOLN, [place] 00 ONCE, Stop date: 01/21/21 12:18:00 CDT fentaNYL No Route: IV, Mem oria (ANES) 01-21 Drug form: l 17:18: INJ, ONCE, Ivn Stop date: 01/21/21 12:18:00 CDT niCARdipine No Route: IV, Memoria (ANES) 01-21 Drug form: l 17:18: INJ, ONCE, [place] Stop date: 01/21/21 12:18:00 CDT midazolam No Route: IV, Me moria (ANES) 01-21 Drug form: l 17:18: SOLN, Vin 00 ONCE, Stop date: 01/21/21 12:18:00 CDT fentaNYL No Route: IV, Mem oria (ANES) 01-21 Drug form: l 17:18: INJ, ONCE, Vin Stop date: 01/21/21 12:18:00 CDT niCARdipine No Route: IV, Memoria (ANES) 01-21 Drug form: l 17:18: INJ, ONCE, [place] Stop date: 01/21/21 12:18:00 CDT midazolam No Route: IV, Me moria (ANES) 01-21 Drug form: l 17:18: SOLN, [place] 00 ONCE, Stop date: 01/21/21 12:18:00 CDT [...] ONCE, Stop date: 01/21/21 12:18:00 CDT fentaNYL 2020- No Route: IV, Mem oria (ANES) 01-21 [...] ONCE, Stop date: 01/21/21 11:09:00 CDT ePHEDrine 202-0 No Route: IV, Me moria (ANES) 01-21 Drug form: l 16:09: INJ, ONCE, Vin 00 Stop date: 01/21/21 11:09:00 CDT phenylephri 202-0 [...] ONCE, Stop date: 01/21/21 11:09:00 CDT ePHEDrine 202-0 No Route: IV, Me moria (ANES) [...] No Route: IV, Mem oria (ANES) 10 8 Drug form: l mg 14:20: INJ, date: 01/21/21 9:20:00 CDT, Stop date: 01/21/21 10:20:00 CDT propofol 2020-0 No Route: IV, Mem oria (ANES) 10 01-21 Drug form: l mg 14:20: INJ, date: 01/21/21 9:20:00 CDT, Stop date: 01/21/21 10:20:00 CDT propofol 2020-0 No Route: IV, Mem oria (ANES) 10 8 Drug form: l mg 14:20: INJ, date: [...] janice 01-21 (Same as: l 13:16: Mylicon, [place] Phazyme, Genasyme) Hydralazine No Notes: Mendoza janice [...] 8- not give l 13:16: IV push. [place] 00 (Same as: Phenergan) Simethicone No Notes: Mendoza janice 8- (Same as: l 13:16: Mylicon, [place] 00 Phazyme, Genasyme) Hydralazine No Notes: Mendoza [...] 01-21 not give l 13:16: IV push. [place] 00 (Same as: Phenergan) Simethicone No Notes: [...] janice 01-21 (Same as: l 13:16: Mylicon, [place] 00 Phazyme, Genasyme) Hydralazine No Notes: Mendoza [...] (four) times a day if needed. furosemide 0 Yes 40mg Q.5D Take 40 mg U T (Lasix) 40 7-16 by mouth 2 [facility] MG tablet 13:04: (two) 35 times a day. cholecalcif 2020-0 Yes 5000U QD Take 5,000 UT mansi [...] n [XIFAXAN] 00 tab, 2 Refill(s), Pharmacy: [facility], 154.94, cm, 12/24/20 10:43:00 CDT, Height, 71.818, kg, 12/24/20 10:43:00 CDT, Weight rifaximin 2020-0 Yes 550 mg = 1 Me moria 550 MG Oral 7-06 tab, PO, l Tablet 18:46: TID, # 42 Jake n [XIFAXAN] 00 tab, 2 Refill(s), Pharmacy: [facility], 154.94, cm, 12/24/20 10:43:00 CDT, Height, 71.818, kg, 12/24/20 10:43:00 CDT, Weight rifaximin 1-0 Yes 550 mg = 1 Me moria 550 MG Oral 7-06 tab, PO, l Tablet 18:46: TID, # 42 Jake n [XIFAXAN] 00 tab, 2 Refill(s), Pharmacy: [facility], 154.94, cm, 12/24/20 10:43:00 CDT, Height, 71.818, kg, 12/24/20 10:43:00 CDT, Weight rifaximin 2021-0 Yes 550 mg = 1 Me moria 550 MG Oral 7-06 tab, PO, l Tablet 18:46: TID, # 42 Jake n [XIFAXAN] 00 tab, 2 Refill(s), Pharmacy: [facility], 154.94, cm, 12/24/20 10:43:00 CDT, Height, 71.818, kg, 12/24/20 10:43:00 CDT, Weight rifaximin 1-0 Yes 550 mg = 1 Me moria 550 MG Oral 7-06 tab, PO, l Tablet 18:46: TID, # 42 Jake n [XIFAXAN] 00 tab, 2 Refill(s), Pharmacy: [facility], 154.94, cm, 12/24/20 10:43:00 CDT, Height, 71.818, kg, 12/24/20 10:43:00 CDT, Weight {2 (480 ML 2020-0 Yes See Memoria Magnesium 7-06 Instructio l Sulfate 18:12: ns, take Jake n 0.0277 00 as MEQ/ML / directed, potassium give sulfate clenpiq if 0.0374 not MEQ/ML / covered by sodium insurance, sulfate # 1 ea, 0 0.257 Refill(s), MEQ/ML Oral Pharmacy: Solution) } [facility] [Suprep 808, Bowel Prep [...] 0.257 Refill(s), MEQ/ML Oral Pharmacy: [facility]) } [facility] [Suprep 808, Bowel Prep [...] 0.257 Refill(s), MEQ/ML Oral Pharmacy: [facility]) } [facility] [Suprep 808, Bowel Prep [...] 0.257 Refill(s), MEQ/ML Oral Pharmacy: [facility]) } [facility] [Suprep 808, Bowel Prep [...] day, # 90 tab, 3 Refill(s), Pharmacy: [facility], 154.94, cm, 12/24/20 10:43:00 CDT, Height, 71.818, kg, 12/24/20 10:43:00 CDT, Weight cyproheptad 2020-0 Yes 4 mg = 1 Me moria ine 4 mg 7-06 tab, PO, l oral tablet 18:10: TID, X 30 H ermann 00 day, # 90 tab, 3 Refill(s), Pharmacy: [facility], 154.94, cm, 12/24/20 10:43:00 CDT, Height, 71.818, kg, 12/24/20 10:43:00 CDT, Weight cyproheptad 2020-0 Yes 4 mg = 1 Me moria ine 4 mg 7-06 tab, PO, l oral tablet 18:10: TID, X 30 H ermann 00 day, # 90 tab, 3 Refill(s), Pharmacy: [facility], 154.94, cm, 12/24/20 10:43:00 CDT, Height, 71.818, kg, 12/24/20 10:43:00 CDT, Weight cyproheptad 0 Yes 4 mg = 1 Me moria ine 4 mg 7-06 tab, PO, l oral tablet 18:10: TID, X 30 H erm day, # 90 tab, 3 Refill(s), Pharmacy: [facility], 154.94, cm, 12/24/20 10:43:00 CDT, Height, 71.818, kg, 12/24/20 10:43:00 CDT, Weight cyproheptad 0 Yes 4 mg = 1 Me moria ine 4 mg 7-06 tab, PO, l oral tablet 18:10: TID, X 30 H erm day, # 90 tab, 3 Refill(s), Pharmacy: [facility], 154.94, cm, 12/24/20 10:43:00 CDT, Height, 71.818, kg, 12/24/20 10:43:00 CDT, Weight Zinc 0 Yes 140 mg, Memoria 7-06 PO, Daily, l 15:54: 0 Vin 00 Refill(s) Elderberry Yes 0 Memoria preparation 7-06 Refill(s) l 15:54: [place] 00 Zinc 2020-0 Yes 140 mg, Memoria 7-06 PO, Daily, l 15:54: 0 [place] 00 Refill(s) Elderberry 0 Yes 0 Memoria preparation 7-06 Refill(s) l 15:54: Vin 00 Zinc 2020-0 Yes 140 mg, Memoria 7-06 PO, Daily, l 15:54: 0 Vin 00 Refill(s) Elderberry 0 Yes 0 Memoria preparation 7-06 Refill(s) l 15:54: [place] 00 Zinc 2020-0 Yes 140 mg, Memoria 7-06 PO, Daily, l 15:54: 0 [place] 00 Refill(s) Elderberry 0 Yes 0 Memoria preparation 7-06 Refill(s) l 15:54: [place] 00 Zinc 2020-0 Yes 140 mg, Memoria 7-06 PO, Daily, l 15:54: 0 [place] 00 Refill(s) Elderberry 0 Yes 0 Memoria [...] Take 7.5 UT (Buspar) 6-19 mg by [facility] 7.5 MG 00:00: mouth 2 tablet 00 (two) times a day. buPROPion Yes 300mg Take 300 UT XL 6-19 mg by [facility] (Wellbutrin 00:00: mouth 1 XL) 300 MG 00 (one) time 24 hr each day tablet in the morning. metoprolol Yes 1{tbl} QD Take 1 UT [facility] [facility] mouth 1 (Toprol-XL) 00 (one) time 50 MG 24 hr each day. tablet ascorbic Yes 500mg Q.67115999 Take 500 UT acid 5-15 [id number] mg by [facility] (Vitamin C) 00:00: 3D mouth 3 500 MG 00 (three) tablet times a day. zinc Yes DAILY [facility] sulfate 50 5-10 ity of mg zinc 00:00: [place] (220 mg) 00 Medical capsule Branch sucralfate Yes 1{tbl} QD Take 1 UT (Carafate) 5-[address] [facility] th 1 g tablet 00:00: mouth 1 00 (one) time each day. ondansetron Yes 4mg Take 4 mg U nivers 4 mg 4-13 by mouth ity of disintegrat 00:[place] tablet 00 [facility] GLIPIZIDE 5 Yes [id number] TAKE 1 [facility] mg tablet -06 TABLET [...] [place] 00 bedtime. Medical Branch doxazosin 4 Yes 4mg Take 1 Univ ers mg tablet 1-07 tablet by ity o f 00:00: mouth at [place] 00 bedtime. Medical Branch glipiZIDE 5 2019-06- No [id number] 5mg Take 1 [facility] mg tablet 07-01-06 [...] by ity of tablet 00:00: mouth at [place] [address] bedtime. Medical Branch traZODone Yes 150mg Take 150 Uni vers 150 mg 8-13 mg by ity of tablet 00:00: mouth at [place] [address] bedtime. Medical Branch erythromyci 2020- No [id number] .5[in_u Place 0.5 Univers n 5 mg/gram 727 07 s] Inches in it y of (0.5 %) 00:00: 00:00 left eye 3 Baljinder as ophthalmic 00 :00 (three) Medica l ointment times Branch daily. Continue until you follow up with eye doctor. diphenhydrA 2020- No 50mg Take 1 Uni vers MINE 50 mg 8-08 19- tablet by ity of tablet 00:00: 00:00 [...] for Wheezing or Shortness of Breath. artificial 2018 Yes 1[drp] Place 1 Un lori tears,hypro [...] (six) Center hours as needed for Pain. sertraline 2017- Yes anxiety QD Take by [facility] (ZOLOFT) 7-20 with mouth [facility] 100 MG 15:20: depression daily. Med ical tablet 59 Center pantoprazol 20170 Yes 40mg QD Take [address] [facility] 7-20 by mouth [facility] (PROTONIX) 15:20: daily. Medic al 40 MG 59 Center tablet amLODIPine 2017- Yes 10mg QD Take [address] (NORVASC) 5 7-20 by mouth [facility] MG tablet 15:20: daily. Medica l 59 Center hydrALAZINE 2017-0 Yes 100mg Q.38389605 Take [address] [facility] (APRESOLINE 7-20 [id number] mg by L ukes ) 100 MG 15:20: 3D mouth 3 Medica l tablet 59 (three) Center times daily. magnesium 2017-0 Yes 400mg QD Take [address] [facility] oxide 7-20 mg by [facility] (MAG-OX) 15:20: mouth Medical 400 mg 59 daily. Center tablet metoclopram 2017-0 Yes 10mg Q.52473125 Take [address] [facility] gadiel HCl 7-20 [id number] by mouth 3 [facility] (REGLAN) 10 15:20: [...] every 3 Center mg/mL (three) injection months. medroxyPROG 2017- Yes Inject [facility] ESTERone [...] l 59 Center hydrALAZINE 2017-0 Yes 100mg Q.91914936 Take [address] [facility] (APRESOLINE 7-20 [id number] mg by L ukes ) 100 MG 15:20: 3D mouth 3 Medica l tablet 59 (three) Center times daily. magnesium 2017-0 Yes 400mg QD Take [address] [facility] [facility] oxide 7-20 mg by [facility] (MAG-OX) 15:20: mouth Medical 400 mg 59 daily. Center tablet metoclopram 2017-0 Yes 10mg Q.52942057 Take [address] [facility] gadiel HCl 7-20 [id number] by mouth 3 [facility] (REGLAN) 10 15:20: [...] l 59 Center hydrALAZINE 2017-0 Yes 100mg Q.71043391 Take [address] [facility] (APRESOLINE 7-20 [id number] mg by L ukes ) 100 MG 15:20: 3D mouth 3 Medica l tablet 59 (three) Center times daily. magnesium 2017-0 Yes 400mg QD Take [address] oxide 7-20 mg by [facility] (MAG-OX) 15:20: mouth Medical 400 mg 59 daily. Center tablet metoclopram 2017- Yes 10mg Q.77477768 Take [address] [facility] gadiel HCl 7-20 [id number] by mouth 3 [facility] (REGLAN) 10 15:20: [...] l 59 Center hydrALAZINE 2017- Yes 100mg Q.36254143 Take [address] [facility] (APRESOLINE 7-20 [id number] mg by L ukes ) 100 MG 15:20: 3D mouth 3 Medica l tablet 59 (three) Center times daily. magnesium 2017- Yes 400mg QD Take [address] oxide 7-20 mg by [facility] (MAG-OX) 15:20: mouth Medical 400 mg 59 daily. Center tablet metoclopram 2017- Yes 10mg Q.21158624 Take [address] [facility] gadiel HCl 7-20 [id number] by mouth 3 [facility] (REGLAN) 10 15:20: [...] l 59 Center hydrALAZINE 2017-0 Yes 100mg Q.14729462 Take [address] [facility] (APRESOLINE 7-20 [id number] mg by L ukes ) 100 MG 15:20: 3D mouth 3 Medica l tablet 59 (three) Center times daily. magnesium 2017-0 Yes 400mg QD Take [address] [facility] [address] oxide 7-20 mg by [facility] (MAG-OX) 15:20: mouth Medical 400 mg 59 daily. Center tablet metoclopram 2017-0 Yes 10mg Q.98707462 Take [address] [facility] gadiel HCl 7-20 [id number] by mouth 3 [facility] (REGLAN) 10 15:20: [...] l 59 Center hydrALAZINE 2017-0 Yes 100mg Q.63980024 Take [address] [facility] [address] (APRESOLINE 7-20 [id number] mg by L ukes ) 100 MG 15:20: 3D mouth 3 Medica l tablet 59 (three) Center times daily. magnesium 2017- Yes 400mg QD Take [address] oxide 7-20 mg by [facility] (MAG-OX) 15:20: mouth Medical 400 mg 59 daily. Center tablet metoclopram 2017- Yes 10mg Q.70542051 Take [address] [facility] gadiel HCl 7-20 [id number] by mouth 3 [facility] (REGLAN) 10 15:20: [...] Center hours as needed for Nausea. traMADol 20170 Yes 50mg Take [address] [facility] [...] l 59 Center hydrALAZINE 2017-0 Yes 100mg Q.00765386 Take [address] [facility] [address] (APRESOLINE 7-20 [id number] mg by L ukes ) 100 MG 15:20: 3D mouth 3 Medica l tablet 59 (three) Center times daily. magnesium 2017- Yes 400mg QD Take [address] oxide 7-20 mg by [facility] (MAG-OX) 15:20: mouth Medical 400 mg 59 daily. Center tablet metoclopram 2017- Yes 10mg Q.38303318 Take [address] [facility] gadiel HCl 7-20 [id number] by mouth 3 [facility] (REGLAN) 10 15:20: [...] l 59 Center hydrALAZINE 2017- Yes 100mg Q.14131874 Take [address] [facility] [address] (APRESOLINE 7-20 [id number] mg by L ukes ) 100 MG 15:20: 3D mouth 3 Medica l tablet 59 (three) Center times daily. magnesium 2017 Yes 400mg QD Take [address] oxide 7-20 mg by [facility] (MAG-OX) 15:20: mouth Medical 400 mg 59 daily. Center tablet metoclopram 2017 Yes 10mg Q.53544410 Take [address] [facility] gadiel HCl 7-20 [id number] by mouth 3 [facility] (REGLAN) 10 15:20: [...] l 59 Center hydrALAZINE 2017-0 Yes 100mg Q.42704853 Take [address] [facility] [address] (APRESOLINE 7-20 [id number] mg by L ukes ) 100 MG 15:20: 3D mouth 3 Medica l tablet 59 (three) Center times daily. magnesium 2017-0 Yes 400mg QD Take [address] oxide 7-20 mg by [facility] (MAG-OX) 15:20: mouth Medical 400 mg 59 daily. Center tablet metoclopram 2017-0 Yes 10mg Q.31520750 Take [address] [facility] gadiel HCl 7-20 [id number] by mouth 3 [facility] (REGLAN) 10 15:20: [...] l 59 Center hydrALAZINE 2017-0 Yes 100mg Q.54222516 Take [address] [facility] [address] (APRESOLINE 7-20 [id number] mg by L ukes ) 100 MG 15:20: 3D mouth 3 Medica l tablet 59 (three) Center times daily. magnesium 2017-0 Yes 400mg QD Take [address] oxide 7-20 mg by [facility] (MAG-OX) 15:20: mouth Medical 400 mg 59 daily. Center tablet metoclopram 2017-0 Yes 10mg Q.35675478 Take [address] [facility] gadiel HCl 7-20 [id number] by mouth 3 [facility] (REGLAN) 10 15:20: [...] l 59 Center hydrALAZINE 2017-0 Yes 100mg Q.54434040 Take [address] [facility] [address] (APRESOLINE 7-20 [id number] mg by L ukes ) 100 MG 15:20: 3D mouth 3 Medica l tablet 59 (three) Center times daily. magnesium 2017-0 Yes 400mg QD Take [address] oxide 7-20 mg by [facility] (MAG-OX) 15:20: mouth Medical 400 mg 59 daily. Center tablet metoclopram 2017-0 Yes 10mg Q.32248310 Take [address] [facility] gadiel HCl 7-20 [id number] by mouth 3 [facility] (REGLAN) 10 15:20: [...] l 59 Center hydrALAZINE 2017-0 Yes 100mg Q.99200835 Take [address] [facility] [address] (APRESOLINE 7-20 [id number] mg by L ukes ) 100 MG 15:20: 3D mouth 3 Medica l tablet 59 (three) Center times daily. magnesium 2017-0 Yes 400mg QD Take [address] oxide 7-20 mg by [facility] (MAG-OX) 15:20: mouth Medical 400 mg 59 daily. Center tablet metoclopram 2017-0 Yes 10mg Q.26446712 Take [address] [facility] gadiel HCl 7-20 [id number] by mouth 3 [facility] (REGLAN) 10 15:20: [...] l 59 Center hydrALAZINE 2017-0 Yes 100mg Q.99188127 Take [address] [facility] [address] (APRESOLINE 7-20 [id number] mg by L ukes ) 100 MG 15:20: 3D mouth 3 Medica l tablet 59 (three) Center times daily. magnesium 2017-0 Yes 400mg QD Take [address] oxide 7-20 mg by [facility] (MAG-OX) 15:20: mouth Medical 400 mg 59 daily. Center tablet metoclopram 2017-0 Yes 10mg Q.82326571 Take [address] [facility] gadiel HCl 7-20 [id number] by mouth 3 [facility] (REGLAN) 10 15:20: [...] l 59 Center hydrALAZINE 2017-0 Yes 100mg Q.19810706 Take [address] [facility] [address] (APRESOLINE 7-20 [id number] mg by L es ) 100 MG 15:20: 3D mouth 3 Medica l tablet 59 (three) Center times daily. magnesium 2017-0 Yes 400mg QD Take [address] [facility] oxide 7-20 mg by [facility] (MAG-OX) 15:20: mouth Medical 400 mg 59 daily. Center tablet metoclopram 2017-0 Yes 10mg Q.89002626 Take [address] [facility] gadiel HCl 7-20 [id number] by mouth 3 [facility] (REGLAN) 10 15:20: [...] l 59 Center hydrALAZINE 2017-0 Yes 100mg Q.37488159 Take [address] [facility] [address] (APRESOLINE 7-20 [id number] mg by L ukes ) 100 MG 15:20: 3D mouth 3 Medica l tablet 59 (three) Center times daily. magnesium 2017-0 Yes 400mg QD Take [address] oxide 7-20 mg by [facility] (MAG-OX) 15:20: mouth Medical 400 mg 59 daily. Center tablet metoclopram 2017-0 Yes 10mg Q.02342180 Take [address] [facility] [address] gadeil HCl 7-20 [id number] by mouth 3 [facility] (REGLAN) 10 15:20: [...] l 59 Center hydrALAZINE 2017-0 Yes 100mg Q.47496349 Take [address] [facility] [address] (APRESOLINE 7-20 [id number] mg by L ukes ) 100 MG 15:20: 3D mouth 3 Medica l tablet 59 (three) Center times daily. magnesium 2017-0 Yes 400mg QD Take [address] oxide 7-20 mg by [facility] (MAG-OX) 15:20: mouth Medical 400 mg 59 daily. Center tablet metoclopram 2017-0 Yes 10mg Q.01874490 Take [address] [facility] [address] gadiel HCl 7-20 [id number] by mouth 3 [facility] (REGLAN) 10 15:20: 3D (three) Med ical MG tablet 59 times Center daily. traMADol 2017-0 Yes 50mg Take [address] [facility] (ULTRAM) 50 7-20 by mouth Luke s mg tablet 15:20: every 6 Medic al 59 (six) Center hours as needed for Pain. meclizine 2017- Yes 12.5mg Take 12.5 C [...] l 59 Center hydrALAZINE 2017-0 Yes 100mg Q.64890353 Take [address] [facility] [address] (APRESOLINE 7-20 [id number] mg by L ukes ) 100 MG [...] daily. Center tablet metoclopram 2017-0 Yes 10mg Q.82251001 Take [address] [facility] gadiel HCl 7-20 [id number] by mouth 3 [facility] (REGLAN) 10 15:20: [...] al 40 MG 59 Center tablet amLODIPine 20170 Yes 10mg QD Take [address] (NORVASC) 5 7-20 by mouth [facility] MG tablet 15:20: daily. Medica l 59 Center amLODIPine 2017-0 Yes 10mg QD Take [address] (NORVASC) 5 7-20 by mouth [facility] MG tablet 15:20: daily. Medica l 59 Center hydrALAZINE 20170 Yes 100mg Q.91283208 Take [address] [facility] [address] (APRESOLINE 7-20 [id number] mg by L ukes ) 100 MG 15:20: 3D mouth 3 Medica l tablet 59 (three) Center times daily. magnesium 20170 Yes 400mg QD Take [address] oxide 7-20 mg by [facility] (MAG-OX) 15:20: mouth Medical 400 mg 59 daily. Center tablet metoclopram 2017 Yes 10mg Q.73961784 Take [address] [facility] gadiel HCl 7-20 [id number] by mouth 3 [facility] (REGLAN) 10 15:20: [...] needed for Nausea. hydrALAZINE 2017-0 Yes 100mg Q.06583515 Take [address] [facility] [address] (APRESOLINE 7-20 [id number] mg by L ukes ) 100 MG [...] l 59 Center hydrALAZINE 2017-0 Yes 100mg Q.31822087 Take [address] [facility] [address] (APRESOLINE 7-20 [id number] mg by L ukes ) 100 MG 15:20: 3D mouth 3 Medica l tablet 59 (three) Center times daily. magnesium 2017-0 Yes 400mg QD Take [address] oxide 7-20 mg by [facility] (MAG-OX) 15:20: mouth Medical 400 mg 59 daily. Center tablet metoclopram 2017-0 Yes 10mg Q.89939731 Take [address] [facility] [address] gadiel HCl 7-20 [id number] by mouth 3 [facility] (REGLAN) 10 15:20: [...] l 59 Center hydrALAZINE 2017-0 Yes 100mg Q.23778676 Take [address] [facility] [address] (APRESOLINE 7-20 [id number] mg by L ukes ) 100 MG 15:20: 3D mouth 3 Medica l tablet 59 (three) Center times daily. magnesium 2017-0 Yes 400mg QD Take [address] oxide 7-20 mg by [facility] (MAG-OX) 15:20: mouth Medical 400 mg 59 daily. Center tablet metoclopram 2017-0 Yes 10mg Q.42303311 Take [address] [facility] gadiel HCl 7-20 [id number] by mouth 3 [facility] (REGLAN) 10 15:20: [...] tablet 59 Center metoclopram 2017-0 Yes 10mg Q.[id number] Take [address] [facility] gadiel HCl 7-20 [id number] by [facility] (REGLAN) 10 15:20: [...] l 59 Center hydrALAZINE 2017-0 Yes 100mg Q.[id number] Take [address] [facility] (APRESOLINE 7-20 [id number] mg by L es ) 100 MG 15:20: 3D mouth 3 [facility] l tablet 59 (three) Center times daily. magnesium 2017-0 Yes 400mg QD Take [address] [facility] oxide 7-20 mg [facility] (MAG-OX) 15:20: mouth Medical 400 mg 59 daily. Center tablet metoclopram 2017-0 Yes 10mg Q.[id number] Take [address] [facility] gadiel HCl 7-20 [id number] by [facility] (REGLAN) 10 15:20: 3D (three) Med ical MG tablet 59 times Center daily. meclizine 2017-0 Yes 12.5mg Take 12.[address] [facility] (ANTIVERT) 7-20 [facility] 25 MG 15:20: mouth 3 [facility] tablet 59 (three) Center times daily as needed. meclizine 2017-0 Yes 12.5mg Take 12.5 C [...] l 59 Center hydrALAZINE 2017-0 Yes 100mg Q.[id number] Take [address] [facility] (APRESOLINE 7-20 [id number] mg by L [facility] ) 100 MG 15:20: 3D mouth 3 [facility] l tablet 59 (three) Center times daily. sertraline 2017- Yes anxiety QD Take by [facility] (ZOLOFT) 7-20 with [facility] 100 MG 15:20: depression daily. Med ical tablet 59 Center magnesium 2017-0 Yes 400mg QD Take [address] [facility] oxide 7-20 mg [facility] (MAG-OX) 15:20: mouth Medical 400 mg 59 daily. Center tablet metoclopram 2017- Yes 10mg Q.[id number] Take [address] [facility] gadiel HCl 7-20 [id number] [facility] (REGLAN) 10 15:20: [...] every 3 Center mg/mL (three) injection months. medroxyPROG [address] [facility] ESTERone [...] l [facility] hydrALAZINE 2017-0 Yes 100mg [id number] Take [address] [facility] (APRESOLINE 7-20 [id number] mg by Misbah jc ) 100 MG 15:20: 3D mouth 3 Medica l tablet 59 (three) Center times daily. magnesium 2017-0 Yes 400mg QD Take [address] [facility] oxide 7-20 mg [facility] (MAG-OX) 15:20: mouth Medical 400 mg 59 daily. Center tablet metoclopram 2017- Yes 10mg Q.[id number] Take [address] [facility] gadiel HCl 7-20 [id number] by [facility] ([facility]) 10 15:20: [...] l [facility] hydrALAZINE 2017-0 Yes 100mg Q.[id number] Take [address] [facility] (APRESOLINE 7-20 [id number] mg by L ukes ) 100 MG 15:20: 3D mouth 3 Medica l tablet 59 (three) Center times daily. magnesium 2017-0 Yes 400mg QD Take [address] [facility] oxide 7-20 mg [facility] (MAG-OX) 15:20: mouth Medical 400 mg 59 daily. Center tablet metoclopram 2017-0 Yes 10mg Q.[id number] Take [address] [facility] gadiel HCl 7-20 [id number] by [facility] 3 [facility] ([facility]) 10 15:20: [...] l [facility] hydrALAZINE 2017-0 Yes 100mg Q.[id number] Take [address] [facility] (APRESOLINE 7-20 [id number] mg by L ukes ) 100 MG 15:20: 3D mouth 3 Medica l tablet 59 (three) Center times daily. magnesium 2017-0 Yes 400mg QD Take [address] [facility] [address] oxide 7-20 mg [facility] (MAG-OX) 15:20: mouth Medical 400 mg 59 daily. Center tablet metoclopram 2017- Yes 10mg Q.[id number] Take [address] [facility] gadiel HCl 7-20 [id number] by [facility] 3 [facility] ([facility]) 10 15:20: [...] l [facility] hydrALAZINE 2017-0 Yes 100mg Q.[id number] Take [address] [facility] [address] (APRESOLINE 7-20 [id number] mg by L ukes ) 100 MG 15:20: 3D mouth 3 Medica l tablet 59 (three) Center times daily. magnesium 2017-0 Yes 400mg QD Take [address] [facility] [address] oxide 7-20 mg by [facility] (MAG-OX) 15:20: mouth Medical 400 mg 59 daily. Center tablet metoclopram 2017-0 Yes 10mg Q.[id number] Take [address] [facility] gadiel HCl 7-20 [id number] by [facility] 3 [facility] ([facility]) 10 15:20: [...] l [facility] Center hydrALAZINE 2017-0 Yes 100mg Q.[id number] Take [address] [facility] [address] (APRESOLINE 7-20 [id number] mg by L ukes ) 100 MG 15:20: 3D mouth 3 Medica l tablet 59 (three) Center times daily. magnesium 2017-0 Yes 400mg QD Take [address] [facility] [address] oxide 7-20 mg by [facility] (MAG-OX) 15:20: mouth Medical 400 mg 59 daily. Center tablet metoclopram 2017-0 Yes 10mg Q.[id number] Take [address] [facility] gadiel HCl 7-20 [id number] by mouth 3 [facility] ([facility]) 10 15:20: [...] tab, PO, l Tablet 15:07: Daily, # [place] 00 30 tab, 0 Refill(s), Pharmacy: [facility] Furosemide Yes 40 mg = 1 Me moria 40 MG Oral 2-09 tab, PO, l Tablet 15:07: Daily, # [place] 00 30 tab, 0 Refill(s), Pharmacy: [facility] 808 Furosemide Yes 40 mg = 1 Me moria 40 MG Oral 2-09 tab, PO, l Tablet 15:07: Daily, # Vin 00 30 tab, 0 Refill(s), Pharmacy: [facility] Furosemide 2017-0 Yes 40 mg = 1 Me moria 40 MG Oral 2-09 tab, PO, l Tablet 15:07: Daily, # [place] 00 30 tab, 0 Refill(s), Pharmacy: [facility] 808 Furosemide 2017-0 Yes 40 mg = 1 Me moria 40 MG Oral 2-09 tab, PO, l Tablet 15:07: Daily, # Vin 00 30 tab, 0 Refill(s), Pharmacy: [facility] [id number] Bumex 2017-0 No 0.5 mg, Memoria 2-09 Route: PO, l 15:00: Drug form: Vin 00 TAB, Daily, Dosing Weight 92.273, kg, Start date: 07/30/16 9:00:00 [employer], Duration: 30 day, Stop date: 08/28/16 9:00:00 [employer] Bumex 2017-0 No 0.5 mg, Memoria 2- Route: PO, l 15:00: Drug form: Vin 00 TAB, Daily, Dosing Weight 92.273, kg, Start date: 07/30/16 9:00:00 [employer], Duration: 30 day, Stop date: 08/28/16 9:00:00 [employer] Bumex 2017-0 No 0.5 mg, Memoria 2- Route: PO, l 15:00: Drug form: Vin 00 TAB, Daily, Dosing Weight 92.273, kg, Start date: 07/30/16 9:00:00 [employer]EL[employer], Duration: 30 day, Stop date: 08/28/16 9:00:00 [employer]IOR [employer]ELOPER Bumex 2017-0 No 0.5 mg, Memoria 2-09 Route: PO, l 15:00: Drug form: [place] 00 TAB, Daily, Dosing Weight 92.273, kg, Start date: 07/30/16 9:00:00 [employer], Duration: 30 day, Stop date: 08/28/16 9:00:00 [employer] Bumex 2017-0 No 0.5 mg, Memoria 2-09 Route: PO, l 15:00: Drug form: Vin 00 TAB, Daily, Dosing Weight 92.273, kg, Start date: 07/30/16 9:00:00 [employer], Duration: 30 day, Stop date: 08/28/16 9:00:00 [employer]IOR [employer]ELOPER Lasix 2017-0 No Notes: Memoria 2-08 (Same as: l 20:05: Lasix) May [place] 00 cause GI upset. Give with food or milk. Lasix 0 No Notes: Memoria 2-08 (Same as: l 20:05: Lasix) May [place] 00 cause GI upset. Give with food or milk. Lasix 0 No Notes: Memoria 2-08 (Same as: l 20:05: Lasix) May [place] 00 cause GI upset. Give with food or milk. Lasix No Notes: Memoria 2-08 (Same as: l 20:05: Lasix) May Vin 00 cause GI upset. Give with food or milk. Lasix No Notes: Memoria 2-08 (Same as: l 20:05: Lasix) May [place] 00 cause GI upset. Give with food or milk. Hydralazine No Notes: Mendoza janice 2-08 (Same as: l 06:05: Apresoline [place] 00 ) Push over 5 minutes Hydralazine 0 No Notes: Mendoza janice 2-08 (Same as: l 06:05: Apresoline [place] 00 ) Push over 5 minutes Hydralazine 0 No Notes: Mendoza janice 2-08 (Same as: l 06:05: Apresoline Vin 00 ) Push over 5 minutes Hydralazine 0 No Notes: Mendoza janice 2-08 (Same as: l 06:05: Apresoline [place] 00 ) Push over 5 minutes Hydralazine 0 No Notes: Mendoza janice 2-08 (Same as: l 06:05: Apresoline [place] 00 ) Push over 5 minutes sodium 2017-0 No 1,000 mL, Memori a chloride 2-05 Rate: 125 l 0.9% 1000 18:26: ml/hr, Jake n ml INJ 00 Infuse 1,000 mL over: 8 hr, Route: IV, Dosing Weight 92.273 kg, Total Volume: 1,000, Start date: 07/26/16 12:26:00 [employer], Duration: 30 day, Stop date: 08/25/16 12:25:00 [employer] sodium 2017-0 No 1,000 mL, Memori a chloride 2-05 Rate: 125 l 0.9% 1000 18:26: ml/hr, Jake n ml INJ 00 Infuse 1,000 mL over: 8 hr, Route: IV, Dosing Weight 92.273 kg, Total Volume: 1,000, Start date: 07/26/16 12:26:00 [employer], Duration: 30 day, Stop date: 08/25/16 12:25:00 [employer]IOR [employer] sodium 2017-0 No 1,000 mL, Memori a chloride 2-05 Rate: 125 l 0.9% 1000 18:26: ml/hr, Jake n ml INJ 00 Infuse 1,000 mL over: 8 hr, Route: IV, Dosing Weight 92.273 kg, Total Volume: 1,000, Start date: 07/26/16 12:26:00 [employer], Duration: 30 day, Stop date: 08/25/16 12:25:00 [employer]IOR [employer] sodium 2017-0 No 1,000 mL, Memori a chloride 2-05 Rate: 125 l 0.9% 1000 18:26: ml/hr, Jake n ml INJ 00 Infuse 1,000 mL over: 8 hr, Route: IV, Dosing Weight 92.273 kg, Total Volume: 1,000, Start date: 07/26/16 12:26:00 [employer], Duration: 30 day, Stop date: 08/25/16 12:25:00 [employer]IOR [employer] sodium 2017-0 No 1,000 mL, Memori a chloride 2-05 Rate: 125 l 0.9% 1000 18:26: ml/hr, Jake n ml INJ 00 Infuse 1,000 mL over: 8 hr, Route: IV, Dosing Weight 92.273 kg, Total Volume: 1,000, Start date: 07/26/16 12:26:00 [employer], Duration: 30 day, Stop date: 08/25/16 12:25:00 [employer]OPER Sodium 2017-0 No 500 mL, Memoria Chloride 2-05 500 ml/hr, l 0.154 13:30: Infuse Vin MEQ/ML 00 Over: 1 Injectable hr, Route: Solution IV, 500, Drug form: INJ, ONCE, Priority: STAT, Dosing Weight 92.273 kg, Start date: 07/26/16 7:30:00 [employer], Duration: 1 doses or times, Stop date: 07/26/16 7:30:00 [employer]OPER Sodium 2017-0 No 500 mL, Memoria Chloride 2-05 500 ml/hr, l 0.154 13:30: Infuse Vin MEQ/ML 00 Over: 1 Injectable hr, Route: Solution IV, 500, Drug form: INJ, ONCE, Priority: STAT, Dosing Weight 92.273 kg, Start date: 07/26/16 7:30:00 [employer], Duration: 1 doses or times, Stop date: 07/26/16 7:30:00 [employer] Sodium 2017-0 No 500 mL, Memoria Chloride 2-05 500 ml/hr, l 0.154 13:30: Infuse [place] MEQ/ML 00 Over: 1 Injectable hr, Route: Solution IV, 500, Drug form: INJ, ONCE, Priority: STAT, Dosing Weight 92.273 kg, Start date: 07/26/16 7:30:00 [employer], Duration: 1 doses or times, Stop date: 07/26/16 7:30:00 [employer]ELOPER Sodium 2017-0 No 500 mL, Memoria Chloride 2-05 500 ml/hr, l 0.154 13:30: Infuse [place] MEQ/ML 00 Over: 1 Injectable hr, Route: Solution IV, 500, Drug form: INJ, ONCE, Priority: STAT, Dosing Weight 92.273 kg, Start date: 07/26/16 7:30:00 [employer], Duration: 1 doses or times, Stop date: 07/26/16 7:30:00 [employer]OPER Sodium 2017-0 No 500 mL, Memoria Chloride 2-05 500 ml/hr, l 0.154 13:30: Infuse Vin MEQ/ML 00 Over: 1 Injectable hr, Route: Solution IV, 500, Drug form: INJ, ONCE, Priority: STAT, Dosing Weight 92.273 kg, Start date: 07/26/16 7:30:00 [employer], Duration: 1 doses or times, Stop date: 07/26/16 7:30:00 [employer]IOR [employer]ELOPER Insulin 2017-0 No 60 units) Mendoza janice regular 2-04 WASTE: F/P l 08:39: - Black; E [place] - Municipal Trash Bin Stable for 28 [...] WASTE: F/P l 08:39: - Black; E [place] 00 - Municipal Trash Bin Stable for [...] Roll in l Human 07:31: palms of [place] 00 hands gently; Do not shake vigorously . (Same as: NovoLOG) "single patient use only" WASTE: F/P - Black; E - [facility] Trash Bin Stable for 28 days at room temperatur e. Expires in days from ____Date Insulin, No Notes: Memoria Aspart, 2-04 Roll in l Human 07:31: palms of [place] 00 hands gently; Do not shake vigorously . (Same as: NovoLOG) "single patient use only" WASTE: F/P - Black; E - [facility] Trash Bin Stable for 28 days at room temperatur e. Expires in days from ____Date Insulin, 0 No Notes: Memoria Aspart, 2-04 Roll in l Human 07:31: palms of [place] 00 hands gently; Do not shake vigorously . (Same as: NovoLOG) "single patient use only" WASTE: F/P - Black; E - [facility] Trash Bin Stable for 28 days at room temperatur e. Expires in days from ____Date Insulin, No Notes: Memoria Aspart, 2-04 Roll in l Human 07:31: palms of [place] 00 hands gently; Do not shake vigorously . (Same as: NovoLOG) "single patient use only" WASTE: F/P - Black; E - [facility] Trash Bin Stable for 28 days at room temperatur e. Expires in days from ____Date Insulin, No Notes: Memoria Aspart, 2-04 Roll in l Human 07:31: palms of [place] 00 hands gently; Do not shake vigorously [...] Roll in l Human 05:42: palms of [place] 00 hands gently; Do not shake vigorously . (Same as: NovoLOG) "single patient use only" WASTE: F/P - Black; E - [facility] Trash Bin Stable for 28 days at room temperatur e. Expires in days from ____Date Insulin, No Notes: Memoria Aspart, 2-04 Roll in l Human 05:42: palms of [place] 00 hands gently; Do not shake vigorously [...] Roll in l Human 03:28: palms of [place] 00 hands gently; Do not shake vigorously . (Same as: NovoLOG) "single patient use only" WASTE: F/P - Black; E - [facility] Trash Bin Stable for 28 days at room temperatur e. Expires in days from ____Date Insulin, No Notes: Memoria Aspart, 2-04 Roll in l Human 03:28: palms of [place] 00 hands gently; Do not shake vigorously [...] Roll in l Human 03:28: palms of [place] 00 hands gently; Do not shake vigorously . (Same as: NovoLOG) "single patient use only" WASTE: F/P - Black; E - [facility] Trash Bin Stable for 28 days at room temperatur e. Expires in days from ____Date atorvastati No Notes: Mendoza janice n 2-04 (Same as: l 03:00: Lipitor) divalproex No Notes: Memor ia sodium 2-04 (Same as: l 03:00: Depakote [place] 00 ER) Once daily dosing; indicated for [...] ___ mg Lasix 0 No Notes: Memoria 2- (Same as: l 22:00: Lasix) [place] MEDICATION WASTE Product Size: 40 mg Product Wasted: ___ mg Lasix 0 No Notes: Memoria 2- (Same as: l 22:00: Lasix) Vin MEDICATION WASTE Product Size: 40 mg Product Wasted: ___ mg Lasix 0 No Notes: Memoria 2-03 (Same as: l 22:00: Lasix) MEDICATION WASTE Product Size: 40 mg Product Wasted: ___ mg Tylenol No Notes: Max Mendoza janice 2-03 acetaminop l 21:52: hen = [place] 00 4000mg/day (4 gm/day). (Same as: Tylenol) Tylenol No Notes: Max Mendoza janice 2-03 acetaminop l 21:52: hen = [place] 00 4000mg/day (4 gm/day). (Same as: Tylenol) Tylenol No Notes: Max Mendoza janice 2-03 acetaminop l 21:52: hen = Vin 00 4000mg/day (4 gm/day). (Same as: Tylenol) Tylenol No Notes: Max Mendoza janice 2-03 acetaminop l 21:52: hen = Vin 00 4000mg/day (4 gm/day). (Same as: Tylenol) Tylenol No Notes: Max Mendoza janice 2-03 acetaminop l 21:52: hen = [place] 00 4000mg/day (4 gm/day). (Same as: Tylenol) Bupropion No 150 mg, 1 Mem oria 2-03 tab, l 15:00: Route: PO, Drug form: ERTAB, Daily, Dosing Weight 92.273, kg, Start date: 07/24/16 9:00:00 [employer], Duration: 30 day, Stop date: 08/22/16 9:00:00 [employer]EL[employer] 24 HR No Notes: Memoria Divalproex 2-03 [...] Memoria 2-03 (Same as: l 15:00: Zoloft) [place] 00 Protonix No Notes: Memoria 2-03 Tablet l 15:00: should not be chewed or crushed. (Same as: Protonix) metoprolol No 100 mg, 2 Me moria extended 2-03 tab, l release 15:00: Route: PO, Herm naeem Drug form: ERTAB, Daily, Start date: 07/24/16 9:00:00 [employer], Duration: 30 day, Stop date: 08/22/16 9:00:00 [employer]IOR [employer]ELOPER Insulin No Notes: Memoria Glargine 2-03 Same [...] oria 2-03 tab, l 15:00: Route: PO, [place] Drug form: ERTAB, Daily, Dosing Weight 92.273, kg, Start date: 07/24/16 9:00:00 [employer]EL[employer], Duration: 30 day, Stop date: 08/22/16 9:00:00 [employer]IOR [employer]ELOPER 24 HR No Notes: Memoria Divalproex 2-03 [...] ERTAB, Daily, Start date: 07/24/16 9:00:00 [employer], Duration: 30 day, Stop date: 08/22/16 9:00:00 [employer]IOR [employer]ELOPER Insulin No Notes: Memoria Glargine 2-03 Same [...] oria 2-03 tab, l 15:00: Route: PO, [place] Drug form: ERTAB, Daily, Dosing Weight 92.273, kg, Start date: 07/24/16 9:00:00 [employer]EL[employer], Duration: 30 day, Stop date: 08/22/16 9:00:00 [employer]IOR [employer] DEVELOPER 24 HR No Notes: Memoria Divalproex 2-03 [...] ERTAB, Daily, Start date: 07/24/16 9:00:00 [employer]ELOPER, Duration: 30 day, Stop date: 08/22/16 9:00:00 [employer]IOR [employer] DEVELOPER Insulin No Notes: Memoria Glargine 2-03 Same [...] oria 2-03 tab, l 15:00: Route: PO, [place] Drug form: ERTAB, Daily, Dosing Weight 92.273, kg, Start date: 07/24/16 9:00:00 [employer], Duration: 30 day, Stop date: 08/22/16 9:00:00 [employer]IOR [employer] DEVELOPER 24 HR No Notes: Memoria Divalproex 2-03 [...] Memoria 2-03 Tablet l 15:00: should not [place] 00 be chewed or crushed. (Same as: Protonix) metoprolol No 100 mg, 2 Me moria extended 2-03 tab, l release 15:00: Route: PO, Herm naeem Drug form: ERTAB, Daily, Start date: 07/24/16 9:00:00 [employer], Duration: 30 day, Stop date: 08/22/16 9:00:00 [employer]IOR [employer] DEVELOPER Insulin No Notes: Memoria Glargine 2-03 Same [...] oria 2-03 tab, l 15:00: Route: PO, [place] Drug form: ERTAB, Daily, Dosing Weight 92.273, kg, Start date: 07/24/16 9:00:00 [employer]EL[employer], Duration: 30 day, Stop date: 08/22/16 9:00:00 [employer]IOR [employer] DEVELOPER 24 HR No Notes: Memoria Divalproex 2-03 [...] Memoria 2-03 (Same as: l 15:00: Zoloft) [place] 00 Protonix No Notes: Memoria 2-03 Tablet l 15:00: should not [place] 00 be chewed or crushed. (Same as: Protonix) metoprolol No 100 mg, 2 Me moria extended 2-03 tab, l release 15:00: Route: PO, Herm naeem 00 Drug form: ERTAB, Daily, Start date: 07/24/16 9:00:00 [employer], Duration: 30 day, Stop date: 08/22/16 9:00:00 [employer]IOR [employer] DEVELOPER Insulin No Notes: Memoria Glargine 2-03 Same [...] Notes: Memoria 2-03 (Same l 14:50: as:MORPhin [place] 00 e Sulfate) Ondansetron No Notes: Mendoza janice 2-03 (Same as: l 14:50: Zofran) Vin 00 MEDICATION WASTE Product Size: 4 mg Product Wasted: ___ mg Morphine No Notes: Memoria 2-03 (Same l 14:50: as:MORPhin [place] 00 e Sulfate) Ondansetron No Notes: Mendoza janice 2-03 (Same as: l 14:50: Zofran) Vin 00 MEDICATION WASTE Product Size: 4 mg Product Wasted: ___ mg Morphine No Notes: Memoria 2-03 (Same l 14:50: as:MORPhin [place] 00 e Sulfate) Ondansetron No Notes: Mendoza [...] Notes: Memoria 2-03 (Same l 14:50: as:MORPhin [place] 00 e Sulfate) Insulin, No Notes: Memoria Aspart, 2-03 Roll in l Human 13:30: palms of [place] 00 hands gently; Do not shake vigorously . (Same as: NovoLOG) "single patient use only" WASTE: F/P - Black; E - Municipal Trash Bin Stable for 28 days at room temperatur e. Expires in days from ____Date Insulin, No Notes: Memoria Aspart, 2-03 Roll in l Human 13:30: palms of [place] 00 hands gently; Do not shake vigorously [...] Roll in l Human 13:30: palms of [place] 00 hands gently; Do not shake vigorously [...] Memoria 2-03 Same as l 11:28: Dilaudid [place] 00 Dilaudid No Notes: Memoria 2-03 Same as l 11:28: Dilaudid Vin 00 Dilaudid No Notes: Memoria 2-03 Same as l 11:28: Dilaudid [place] 00 Dilaudid No Notes: Memoria 2-03 Same as l 11:28: Dilaudid [place] 00 Dilaudid No Notes: Memoria 2-03 Same as l 11:28: Dilaudid [place] 00 Insulin, No Notes: Memoria Aspart, 2-03 Roll in l Human 08:40: palms of [place] 00 hands gently; Do not shake vigorously [...] Glucose Results, Start date: 07/24/16 2:40:00 [employer], Duration: 30 day, Stop date: 08/23/16 2:39:00 [employer]ELOPER Dextrose No 25 gm, 50 Mendoza janice 50% Syringe 2-03 mL, Route: l 08:40: IVP, Drug [place] 00 Form: INJ, Dosing Weight 92.273, kg, PRN, PRN Blood Glucose Results, Start date: 07/24/16 2:40:00 [employer]EL[employer], Duration: 30 day, Stop date: 08/23/16 2:39:00 [employer]IOR [employer]ELOPER Insulin, 2017-0 No Notes: Memoria Aspart, 2-03 [...] Glucose Results, Start date: 07/24/16 2:40:00 [employer]IOR [employer]ELOPER, Duration: 30 day, Stop date: 08/23/16 2:39:00 [employer]IOR [employer]ELOPER Dextrose 2017-0 No 25 gm, 50 Mendoza janice 50% Syringe 2-03 mL, Route: l 08:40: IVP, Drug Vin 00 Form: INJ, Dosing Weight 92.273, kg, PRN, PRN Blood Glucose Results, Start date: 07/24/16 2:40:00 [employer]ELOPER, Duration: 30 day, Stop date: 08/23/16 2:39:00 [employer]IOR [employer]ELOPER Insulin, 2017-0 No Notes: Memoria Aspart, 2-03 [...] Glucose Results, Start date: 07/24/16 2:40:00 [employer]IOR [employer]ELOPER, Duration: 30 day, Stop date: 08/23/16 2:39:00 [employer]IOR [employer] DEVELOPER Dextrose 2017-0 No 25 gm, 50 Mendoza janice 50% Syringe 2-03 mL, Route: l 08:40: IVP, Drug [place] 00 Form: INJ, Dosing Weight 92.273, kg, PRN, PRN Blood Glucose Results, Start date: 07/24/16 2:40:00 [employer]ELOPER, Duration: 30 day, Stop date: 08/23/16 2:39:00 S[employer]IOR [employer] DEVELOPER Insulin, 2017-0 No Notes: Memoria Aspart, 2-03 [...] 2-03 Route: IM, l 08:40: Drug form: [place] 00 PDR/INJ, PRN, Dosing Weight 92.273, kg, PRN Blood Glucose Results, Start date: 07/24/16 2:40:00 [employer]ELOPER, Duration: 30 day, Stop date: 08/23/16 2:39:00 [employer]IOR [employer] DEVELOPER Dextrose 2017-0 No 25 gm, 50 Mendoza janice 50% Syringe 2-03 mL, Route: l 08:40: IVP, Drug [place] 00 Form: INJ, Dosing Weight 92.273, kg, PRN, PRN Blood Glucose Results, Start date: 07/24/16 2:40:00 [employer]IOR [employer]ELOPER, Duration: 30 day, Stop date: 08/23/16 2:39:00 S[employer]IOR [employer] DEVELOPER Insulin, 2017-0 No Notes: Memoria Aspart, 2-03 [...] 2-03 Route: IM, l 08:40: Drug form: [place] 00 PDR/INJ, PRN, Dosing Weight 92.273, kg, PRN Blood Glucose Results, Start date: 07/24/16 2:40:00 S[employer]IOR [employer]ELOPER, Duration: 30 day, Stop date: 08/23/16 2:39:00 SENIOR [employer] DEVELOPER Dextrose 2017- No 25 gm, 50 Mendoza janice 50% Syringe 2-03 mL, Route: l 08:40: IVP, Drug [place] 00 Form: INJ, Dosing Weight 92.273, kg, PRN, PRN Blood Glucose Results, Start date: 07/24/16 2:40:00 [employer]IOR [employer]ELOPER, Duration: 30 day, Stop date: 08/23/16 2:39:00 [employer]IOR [employer] DEVELOPER Docusate 2017- No Notes: Memoria 2-03 (Same as: l 07:20: Colace) [place] (Do Not Crush) Ondansetron No Notes: Mendoza janice 2-03 (Same as: l 07:20: Zofran) Vin 00 MEDICATION WASTE Product Size: 4 mg Product Wasted: ___ mg Docusate 2016- No Notes: Memoria 2-03 (Same as: l 07:20: Colace) Vin 00 (Do Not Crush) Ondansetron 2016- No Notes: Mendoza janice 2-03 (Same as: l 07:20: Zofran) [place] 00 MEDICATION WASTE Product Size: 4 mg Product Wasted: ___ mg Docusate 2017- No Notes: Memoria 2-03 (Same as: l 07:20: Colace) [place] 00 (Do Not Crush) Ondansetron 2016-0 No Notes: Mendoza janice 2-03 (Same as: l 07:20: Zofran) Vin 00 MEDICATION WASTE Product Size: 4 mg Product Wasted: ___ mg Docusate 2016-0 No Notes: Memoria 2-03 (Same as: l 07:20: Colace) [place] 00 (Do Not Crush) Ondansetron 2016-0 No Notes: Mendoza janice 2-03 (Same as: l 07:20: Zofran) [place] 00 MEDICATION WASTE Product Size: 4 mg Product Wasted: ___ mg Docusate No Notes: Memoria 2-03 (Same as: l 07:20: Colace) [place] 00 (Do Not Crush) Ondansetron No Notes: Mendoza janice 2- (Same as: l 07:20: Zofran) Vin 00 MEDICATION WASTE Product Size: 4 mg Product Wasted: ___ mg Lasix No Notes: Memoria 2- (Same as: l 06:01: Lasix) [place] 00 MEDICATION WASTE Product Size: 40 mg Product Wasted: ___ mg Lasix No Notes: Memoria 2- (Same as: l 06:01: Lasix) [place] 00 MEDICATION WASTE Product Size: 40 mg [...] Memori a 0.833 MG/ML 2- (Same as: 04:09: Duoneb) Vin Ipratropium 00 Gordon 0.167 MG/ML Inhalant Solution [DuoNeb] Albuterol No Notes: Memori a 0.833 MG/ML 2- (Same as: :09: Duoneb) [place] Ipratropium 00 Gordon 0.167 MG/ML Inhalant Solution [DuoNeb] Albuterol No Notes: Memori a 0.833 MG/ML 07-24 (Same as: :09: Duoneb) Vin Ipratropium 00 Gordon 0.167 MG/ML Inhalant Solution [DuoNeb] Albuterol No Notes: Memori a 0.833 MG/ML - (Same as: :09: Duoneb) Vin Ipratropium 00 Gordon 0.167 MG/ML Inhalant Solution [DuoNeb] Albuterol No Notes: Memori a 0.833 MG/ML 07-24 (Same as: :09: Duoneb) [place] Ipratropium 00 Gordon 0.167 MG/ML Inhalant Solution [DuoNeb] atorvastati 2015-06 Yes 40 mg = 1 M emoria n 40 mg 08-16 tab, PO, l oral tablet 16:34: Bedtime, # [place] 00 30 tab, 0 Refill(s) Insulin 2015-06 Yes 40 unit, Memori a Glargine 08-16 SUB-Q, l 100 UNT/ML 16:34: Daily, # [...] tab, PO, l Tablet 16:34: Daily, # [place] 00 30 tab, 0 Refill(s) Hydroxyzine 2015-06 [...] PO, l oral tablet 16:34: Bedtime, # [place] 00 30 tab, 0 Refill(s) Insulin 2015-06 [...] tab, PO, l Tablet 16:34: Daily, # [place] 00 30 tab, 0 Refill(s) Hydroxyzine 2015-06 [...] PO, l oral tablet 16:34: Bedtime, # [place] 00 30 tab, 0 Refill(s) Insulin 2015-06 [...] INHALATION l 0.09 16:34: , PRN, PRN [place] MG/ACTUAT 00 as needed Metered for Dose [...] PO, l oral tablet 16:34: Bedtime, # [place] 00 30 tab, 0 Refill(s) Insulin 2015-06 [...] # 8 gm, 0 Refill(s) Aspirin 81 2016-1 Yes 81 mg = 1 Me moria MG Chewable 2-26 tab, PO, l Tablet 16:34: Daily, # [place] 00 30 tab, 0 Refill(s) Hydroxyzine 2015-06 Yes 50 mg = 1 M emoria Hydrochlori 2-26 cap, PO, l de 50 MG 16:34: TID, X 30 Herm naeem Oral 00 day, # 90 Capsule cap, 0 Refill(s) losartan 25 2015-06 Yes 25 mg = 1 M emoria mg oral 2-26 tab, PO, l tablet 16:34: Daily, # [place] 00 30 tab, 0 Refill(s) Furosemide 2015-06 Yes 80 mg = 2 Me moria 40 MG Oral 2-26 tab, PO, l Tablet 16:34: BID, # 120 Nidia nn 00 tab, 0 Refill(s) Lasix 2015-06 No Notes: Memoria 2-26 (Same as: l 15:00: Lasix) May [place] 00 cause GI upset. Give with food or milk. Lasix 2015-06 No Notes: Memoria 2-26 (Same as: l 15:00: Lasix) May [place] 00 cause GI upset. Give with food or milk. Lasix 2015-06 No Notes: Memoria 2-26 (Same as: l 15:00: Lasix) May [place] 00 cause GI upset. Give with food or milk. Lasix 2015-06 No Notes: Memoria 2-26 (Same as: l 15:00: Lasix) May [place] 00 cause GI upset. Give with food or milk. Lasix 2015-06 No Notes: Memoria 2-26 (Same as: l 15:00: Lasix) May [place] 00 cause GI upset. Give with food or milk. Magnesium 2015-06 No Notes: Memori a Oxide 2-24 (Same as: l 13:36: Mag-Ox Vin 00 400) Magnesium oxide 926mw=[id number] g elemental magnesium Dose=____m g magnesium oxide (___mg elemental magnesium) Magnesium 2015-06 No Notes: Memori a Oxide 2-24 (Same as: l 13:36: Mag-Ox [place] 00 400) Magnesium oxide 156az=695q g elemental magnesium Dose=____m g magnesium oxide (___mg elemental magnesium) Magnesium 2015-06 No Notes: Memori a Oxide 2-24 (Same as: l 13:36: [facility]-Ox Vin 400) Magnesium oxide 877ag=372u g elemental magnesium Dose=____m g magnesium oxide (___mg elemental magnesium) Magnesium 2015-06 No Notes: Memori a Oxide 2-24 (Same as: l 13:36: [facility]-Ox Vin 400) Magnesium oxide 539ku=681t g elemental magnesium Dose=____m g magnesium oxide (___mg elemental magnesium) Magnesium 2015-06 No Notes: Memori a Oxide 2-24 (Same as: l 13:36: [facility]-Ox Vin 400) Magnesium oxide 491pw=972d g elemental magnesium Dose=____m g magnesium oxide (___mg elemental magnesium) Magnesium 2015-06 No Notes: Memori a Oxide 2-24 (Same as: l 09:47: [facility]-Ox [place] 400) Magnesium oxide 557ko=829v g elemental magnesium Dose=____m g magnesium oxide (___mg elemental magnesium) Magnesium 2015-06 No Notes: Memori a Oxide 2-24 (Same as: l 09:47: [facility]-Ox Vin 400) Magnesium oxide 354bx=170z g elemental magnesium Dose=____m g magnesium oxide (___mg elemental magnesium) Magnesium 2015-06 No Notes: Memori a Oxide 2-24 (Same as: l 09:47: [facility]-Ox [place] 400) Magnesium oxide 055kk=871c g elemental magnesium Dose=____m g magnesium oxide (___mg elemental magnesium) Magnesium 2015-06 No Notes: Memori a Oxide 2-24 (Same as: l 09:47: [facility]-Ox Vin 400) Magnesium oxide 416ec=595l g elemental magnesium Dose=____m g magnesium oxide (___mg elemental magnesium) Magnesium 2015-06 No Notes: Memori a Oxide 2-24 (Same as: l 09:47: [facility]-Ox Vin 400) Magnesium oxide 487sk=809a g elemental magnesium Dose=____m g magnesium oxide [...] XL 2-24 (Same as: l 00:00: Wellbutrin [place] 00 XL) "Do Not Crush" Norvasc 2015-06 No Notes: Memoria 2-24 (Same as: l 00:00: Norvasc) Vin 00 Wellbutrin 2015-06 No Notes: Memor ia XL 2-24 (Same as: l 00:00: Wellbutrin [place] 00 XL) "Do Not Crush" Norvasc 2015-06 No Notes: Memoria 2-24 (Same as: l 00:00: Norvasc) [place] 00 Wellbutrin 2015-06 No Notes: Memor ia XL 2-24 (Same as: l 00:00: Wellbutrin [place] 00 XL) "Do Not Crush" Norvasc 2015-06 No Notes: Memoria 2-24 (Same as: l 00:00: Norvasc) [place] 00 Wellbutrin 2015-06 No Notes: Memor ia XL 2-24 (Same as: l 00:00: Wellbutrin Vin 00 XL) "Do Not Crush" Norvasc 2015-06 No Notes: Memoria 2-24 (Same as: l 00:00: Norvasc) [place] 00 Wellbutrin 2015-06 No Notes: Memor ia XL 2-24 (Same as: l 00:00: Wellbutrin [place] 00 XL) "Do Not Crush" Norvasc 2015-06 [...] tab, PO, l tablet 15:35: Daily, 0 [place] 00 Refill(s) pravastatin 2015-06 No 40 mg = 1 M emoria 40 mg oral 2-23 tab, PO, l tablet 15:35: Daily, 0 [place] 00 Refill(s) amLODIPine 2015-06 No 10 mg = 1 Me moria 10 mg oral 2-23 tab, PO, l tablet 15:35: Daily, 0 Vin 00 Refill(s) pravastatin 2015-06 No 40 mg = 1 M emoria 40 mg oral 2-23 tab, PO, l tablet 15:35: Daily, 0 [place] 00 Refill(s) amLODIPine 2015-06 No 10 mg = 1 Me moria 10 mg oral 2-23 tab, PO, l tablet 15:35: Daily, 0 [place] 00 Refill(s) pravastatin 2015-06 No 40 mg = 1 M emoria 40 mg oral 2-23 tab, PO, l tablet 15:35: Daily, 0 Vin 00 Refill(s) amLODIPine 2015-06 No 10 mg = 1 Me moria 10 mg oral 2-23 tab, PO, l tablet 15:35: Daily, 0 [place] 00 Refill(s) pravastatin 2015-06 No 40 mg [...] AND 1 l Capsule 15:27: CAP AT [place] 00 BEDTIME, 0 Refill(s) Insulin, 2015-06 No [...] tab, PO, l Tablet 15:27: Daily, 0 [place] [Zoloft] 00 Refill(s) pantoprazol 2015-06 Yes 40 [...] tab, PO, l Tablet 15:27: Daily, 0 [place] [Zoloft] 00 Refill(s) pantoprazol 2015-06 Yes 40 mg = 1 M emoria e 40 MG 2-23 tab, PO, l Enteric 15:27: Daily, 0 Jake n Coated 00 Refill(s) Tablet [Protonix] gabapentin 2015-06 Yes 1 CAP PO Mem oria 300 MG Oral 2-23 BID AND 1 l Capsule 15:27: CAP AT [place] 00 BEDTIME, 0 Refill(s) Insulin, 2015-06 No [...] AND 1 l Capsule 15:27: CAP AT [place] 00 BEDTIME, 0 Refill(s) Insulin, 2015-06 No [...] AND 1 l Capsule 15:27: CAP AT [place] 00 BEDTIME, 0 Refill(s) Insulin, 2015-06 No [...] 86.364, kg, Start date: 06/11/16 9:00:00 [employer], Duration: 30 day, Stop date: 07/10/16 9:00:00 [employer]IOR [employer] DEVELOPER Insulin 2015-06 No Notes: Memoria Glargine 2-22 [...] 86.364, kg, Start date: 06/11/16 9:00:00 [employer]IOR [employer] DEVELOPER, Duration: 30 day, Stop date: 07/10/16 9:00:00 S[employer]IOR [employer] DEVELOPER Insulin 2015-06 No Notes: Memoria Glargine 2-22 [...] 86.364, kg, Start date: 06/11/16 9:00:00 S[employer]IOR [employer] DEVELOPER, Duration: 30 day, Stop date: 07/10/16 9:00:00 S[employer]IOR [employer] DEVELOPER Insulin 2015-06 No Notes: Memoria Glargine 2-22 [...] 86.364, kg, Start date: 06/11/16 9:00:00 SENIOR [employer] DEVELOPER, Duration: 30 day, Stop date: 07/10/16 9:00:00 SENIOR [employer] DEVELOPER Insulin 2015-06 No Notes: Memoria Glargine 2-22 [...] 86.364, kg, Start date: 06/11/16 9:00:00 S[employer]IOR [employer] DEVELOPER, Duration: 30 day, Stop date: 07/10/16 9:00:00 S[employer]IOR [employer]BY DEVELOPER Insulin 2015-06 No Notes: Memoria Glargine 2-22 Same as: l 100 UNT/ML 15:00: Lantus) Do H ermann Injectable 00 not hold Solution insulin [Lantus] without contacting prescriber WASTE: F/P - Black; E - Municipal Trash Bin Zoloft 2015-06 No Notes: Memoria 2-22 (Same as: l 15:00: Zoloft) Insulin, 2015-06 No Notes: Memoria Aspart, 2-22 Roll in l Human 12:55: palms of [place] 00 hands gently; Do not shake vigorously . (Same as: NovoLOG) "single patient use only" WASTE: F/P - Black; E - Municipal Trash Bin Stable for 28 days at room temperatur e. Expires in days from ____Date Insulin, 2015-06 No Notes: Memoria Aspart, 2-22 Roll in l Human 12:55: palms of [place] 00 hands gently; Do not shake vigorously [...] Roll in l Human 12:55: palms of [place] 00 hands gently; Do not shake vigorously [...] sodium, 2-22 porcine l porcine 06:00: heparin [place] 2500 UNT/ML 00 Injectable Solution heparin 2015-06 No Notes: Memoria sodium, 2-22 porcine l porcine 06:00: heparin [place] 2500 UNT/ML 00 Injectable Solution heparin 2015-06 No Notes: Memoria sodium, 2-22 porcine l porcine 06:00: heparin Vin 2500 UNT/ML 00 Injectable Solution heparin 2015-06 No Notes: Memoria sodium, 2-22 porcine l porcine 06:00: heparin [place] 2500 UNT/ML 00 Injectable Solution Albuterol 2015-06 No Notes: Memori a 0.833 MG/ML 2-22 (Same as: l 03:00: Duoneb) Vin Ipratropium 00 Gordon 0.167 MG/ML Inhalant Solution [DuoNeb] gabapentin 2015-06 No 300 mg, Mendoza janice 300 MG Oral 08-12 Route: PO, l Capsule 03:00: Drug form: Herm naeem 00 CAP, Q12H, Dosing Weight 86.364, kg, (CrCl 30 - 59 ml/min), Start date: 06/10/16 21:00:00 [employer]OPER, Duration: 30 day, Stop date: 07/10/16 9:00:00 [employer]IOR [employer] DEVELOPER divalproex 2015-06 No Notes: Memor ia sodium -22 (Same as: l 03:00: Depakote Vin 00 ER) Once daily dosing; indicated for migraines. Divalproe x sodium extended-r elease tab. Do not chew or crush. "Do Not Crush" Losartan 2015-06 No Notes: Memoria 2-22 (Same as: l 03:00: Cozaar) Vin 00 Albuterol 2015-06 No Notes: Memori a 0.833 MG/ML -22 (Same as: l 03:00: Duoneb) [place] Ipratropium 00 Gordon 0.167 MG/ML Inhalant Solution [DuoNeb] gabapentin 2015-06 No 300 mg, Mendoza janice 300 MG Oral 22 Route: PO, l Capsule 03:00: Drug form: Herm naeem 00 CAP, Q12H, Dosing Weight 86.364, kg, (CrCl 30 - 59 ml/min), Start date: 06/10/16 21:00:00 [employer]ELOPER, Duration: 30 day, Stop date: 07/10/16 9:00:00 [employer]IOR [employer] DEVELOPER divalproex 2015-06 No Notes: Memor ia sodium 2-22 (Same as: l 03:00: Depakote Vin 00 ER) Once daily dosing; indicated for migraines. Divalproe x sodium extended-r elease tab. Do not chew or crush. "Do Not Crush" Losartan 2015-06 No Notes: Memoria 2-22 (Same as: l 03:00: Cozaar) [place] 00 Albuterol 2015-06 No Notes: Memori a 0.833 MG/ML 2-22 (Same as: l 03:00: Duoneb) Vin Ipratropium 00 Gordon 0.167 MG/ML Inhalant Solution [DuoNeb] gabapentin 2015-06 No 300 mg, Mendoza janice 300 MG Oral 2-22 Route: PO, l Capsule 03:00: Drug form: Herm naeem 00 CAP, Q12H, Dosing Weight 86.364, kg, (CrCl 30 - 59 ml/min), Start date: 06/10/16 21:00:00 [employer] DEV[employer]OPER, Duration: 30 day, Stop date: 07/10/16 9:00:00 [employer]IOR [employer] DEVELOPER divalproex 2015-06 No Notes: Memor ia sodium 2-22 (Same as: l 03:00: Depakote [place] 00 ER) Once daily dosing; indicated for migraines. Divalproe x sodium extended-r elease tab. Do not chew or crush. "Do Not Crush" Losartan 2015-06 No Notes: Memoria 2-22 (Same as: l 03:00: Cozaar) [place] 00 Albuterol 2015-06 No Notes: Memori a 0.833 MG/ML 2-22 (Same as: l / 03:00: Duoneb) Vin Ipratropium 00 Gordon 0.167 MG/ML Inhalant Solution [DuoNeb] gabapentin 2015-06 No 300 mg, Mendoza janice 300 MG Oral 2-22 Route: PO, l Capsule 03:00: Drug form: Herm naeem 00 CAP, Q12H, Dosing Weight 86.364, kg, (CrCl 30 - 59 ml/min), Start date: 06/10/16 21:00:00 [employer] DEVELOPER, Duration: 30 day, Stop date: 07/10/16 9:00:00 [employer]IOR [employer] DEVELOPER divalproex 2015-06 No Notes: Memor ia sodium 2-22 (Same as: l 03:00: Depakote [place] 00 ER) Once daily dosing; indicated for migraines. Divalproe x sodium extended-r elease tab. Do not chew or crush. "Do Not Crush" Losartan 2015-06 No Notes: Memoria 2-22 (Same as: l 03:00: Cozaar) [place] 00 Albuterol 2015-06 No Notes: Memori a 0.833 MG/ML 2-22 (Same as: l / 03:00: Duoneb) Vin Ipratropium 00 Gordon 0.167 MG/ML Inhalant Solution [DuoNeb] gabapentin 2015-06 No 300 mg, Mendoza janice 300 MG Oral 2-22 Route: PO, l Capsule 03:00: Drug form: Herm naeem 00 CAP, Q12H, Dosing Weight 86.364, kg, (CrCl 30 - 59 ml/min), Start date: 06/10/16 21:00:00 [employer] DEVELOPER, Duration: 30 day, Stop date: 07/10/16 9:00:00 [employer]IOR [employer] DEVELOPER divalproex 2015-06 No Notes: Memor ia sodium 2-22 (Same as: l 03:00: Depakote [place] 00 ER) Once daily dosing; indicated for migraines. Divalproe x sodium extended-r elease tab. Do not chew or crush. "Do Not Crush" Losartan 2015-06 No Notes: Memoria 2-22 (Same as: l 03:00: Cozaar) Vin 00 Insulin, 2015-06 No Notes: Memoria Aspart, 2-22 Roll in l Human 00:50: palms of [place] 00 hands gently; Do not shake vigorously [...] Glucose Results, Start date: 06/10/16 18:50:00 [employer]IOR [employer] DEVELOPER, Duration: 30 day, Stop date: 07/10/16 18:49:00 [employer]IOR [employer] DEVELOPER Glucagon 2015-06 No 1 mg, Memoria 2-22 Route: IM, l 00:50: Drug form: Vin 00 PDR/INJ, PRN, Dosing Weight 86.364, kg, PRN Blood Glucose Results, Start date: 06/10/16 18:50:00 [employer] DEVELOPER, Duration: 30 day, Stop date: 07/10/16 18:49:00 [employer]IOR [employer] DEVELOPER Insulin, 2015-06 No Notes: Memoria Aspart, 2-22 Roll in l Human 00:50: palms of [place] 00 hands gently; Do not shake vigorously . (Same as: NovoLOG) "single patient use only" WASTE: F/P - Black; E - Municipal Trash Bin Stable for 28 days at room temperatur e. Expires in days from ____Date Dextrose 2015-06 No 12.5 gm, Memor ia 50% Syringe 2-22 25 mL, l 00:50: Route: [place] 00 IVP, Drug Form: INJ, Dosing Weight 86.364, kg, PRN, PRN Blood Glucose Results, Start date: 06/10/16 18:50:00 [employer]OPER, Duration: 30 day, Stop date: 07/10/16 18:49:00 [employer]IOR [employer] DEVELOPER Glucagon 2015-06 No 1 mg, Memoria 2-22 Route: IM, l 00:50: Drug form: [place] 00 PDR/INJ, PRN, Dosing Weight 86.364, kg, PRN Blood Glucose Results, Start date: 06/10/16 18:50:00 [employer]IOR [employer] DEVELOPER, Duration: 30 day, Stop date: 07/10/16 18:49:00 [employer]IOR [employer] DEVELOPER Insulin, 2015-06 No Notes: Memoria Aspart, 2-22 [...] Glucose Results, Start date: 06/10/16 18:50:00 [employer]IOR [employer] DEVELOPER, Duration: 30 day, Stop date: 07/10/16 18:49:00 [employer]IOR [employer] DEVELOPER Glucagon 2015-06 No 1 mg, Memoria 2-22 Route: IM, l 00:50: Drug form: Vin 00 PDR/INJ, PRN, Dosing Weight 86.364, kg, PRN Blood Glucose Results, Start date: 06/10/16 18:50:00 [employer]IOR [employer] DEVELOPER, Duration: 30 day, Stop date: 07/10/16 18:49:00 [employer]IOR [employer] DEVELOPER Insulin, 2015-06 No Notes: Memoria Aspart, 2-22 Roll in l Human 00:50: palms of [place] 00 hands gently; Do not shake vigorously [...] Glucose Results, Start date: 06/10/16 18:50:00 [employer]IOR [employer] DEVELOPER, Duration: 30 day, Stop date: 07/10/16 18:49:00 [employer] DEVELOPER Glucagon 2015-06 No 1 mg, Memoria 2-22 Route: IM, l 00:50: Drug form: [place] 00 PDR/INJ, PRN, Dosing Weight 86.364, kg, PRN Blood Glucose Results, Start date: 06/10/16 18:50:00 [employer]IOR [employer] DEVELOPER, Duration: 30 day, Stop date: 07/10/16 18:49:00 [employer]IOR [employer] DEVELOPER Insulin, 2015-06 No Notes: Memoria Aspart, 2-22 Roll in l Human 00:50: palms of [place] 00 hands gently; Do not shake vigorously . (Same as: NovoLOG) "single patient use only" WASTE: F/P - Black; E - Municipal Trash Bin Stable for 28 days at room temperatur e. Expires in days from ____Date Dextrose 2015-06 No 12.5 gm, Memor ia 50% Syringe 2-22 25 mL, l 00:50: Route: [place] 00 IVP, Drug Form: INJ, Dosing Weight 86.364, kg, PRN, PRN Blood Glucose Results, Start date: 06/10/16 18:50:00 [employer] DEVELOPER, Duration: 30 day, Stop date: 07/10/16 18:49:00 [employer]IOR [employer] DEVELOPER Glucagon 2015-06 No 1 mg, Memoria 08-12 Route: IM, l 00:50: Drug form: [place] 00 PDR/INJ, PRN, Dosing Weight 86.364, kg, PRN Blood Glucose Results, Start date: 06/10/16 18:50:00 [employer] DEVELOPER, Duration: 30 day, Stop date: 07/10/16 18:49:00 [employer]IOR [employer] DEVELOPER Hydralazine 2015-06 No Notes: Mendoza janice 2-22 (Same as: l 00:36: Apresoline [place] 00 ) Push over 5 minutes Hydralazine 2015-06 No Notes: Mendoza janice 2-22 (Same as: l 00:36: Apresoline [place] 00 ) Push over 5 minutes Hydralazine 2015-06 No Notes: Mendoza janice 2-22 (Same as: l 00:36: Apresoline [place] 00 ) Push over 5 minutes Hydralazine 2015-06 No Notes: Mendoza janice 2-22 (Same as: l 00:36: Apresoline [place] 00 ) Push over 5 minutes Hydralazine [...] janice 2-22 (Same as: l 00:34: Apresoline [place] 00 ) May interfere w/enteral feedings Take With Food Hydralazine 2015-06 No Notes: Mendoza janice 2-22 (Same as: l 00:34: Apresoline [place] 00 ) May interfere w/enteral feedings Take [...] janice 2-22 Route: IV, l 00:06: ONCE, [place] Dosing Weight 86.364, kg, Start date: 06/10/16 18:06:00 [employer] DEVELOPER, Stop date: 06/10/16 18:06:00 [employer]IOR [employer] DEVELOPER Hydralazine 2015-06 No 10 mg, Mendoza janice 2-22 Route: IV, l 00:06: ONCE, [place] 00 Dosing Weight 86.364, kg, Start date: 06/10/16 18:06:00 [employer]IOR [employer] DEVELOPER, Stop date: 06/10/16 18:06:00 [employer]IOR [employer] DEVELOPER Hydralazine 2015-06 No 10 mg, Mendoza janice 2-22 Route: IV, l 00:06: ONCE, Dosing Weight 86.364, kg, Start date: 06/10/16 18:06:00 S[employer]IOR [employer] DEVELOPER, Stop date: 06/10/16 18:06:00 [employer]IOR [employer] DEVELOPER Hydralazine 2015-06 No 10 mg, Mendoza janice 2-22 Route: IV, l 00:06: ONCE, Dosing Weight 86.364, kg, Start date: 06/10/16 18:06:00 [employer]IOR [employer] DEVELOPER, Stop date: 06/10/16 18:06:00 S[employer]IOR [employer] DEVELOPER Hydralazine 2015-06 No 10 mg, Mendoza janice 2-22 Route: IV, l 00:06: ONCE, Dosing Weight 86.364, kg, Start date: 06/10/16 18:06:00 S[employer]IOR [employer] DEVELOPER, Stop date: 06/10/16 18:06:00 [employer]IOR [employer] DEVELOPER hydrOXYzine 2015-06 No Notes: Mendoza janice pamoate [...] 86.364, kg, Start date: 06/10/16 16:32:00 [employer]IOR [employer] DEVELOPER, Stop date: 06/10/16 16:32:00 [employer]IOR [employer] DEVELOPER Furosemide 2015-06 No 60 mg, Memor ia 2-21 Route: l 22:32: IVP, Drug form: INJ, ONCE, Dosing Weight 86.364, kg, Start date: 06/10/16 16:32:00 [employer] DEVELOPER, Stop date: 06/10/16 16:32:00 [employer]IOR [employer] DEVELOPER Furosemide 2015-06 No 60 mg, Memor ia 2-21 Route: l 22:32: IVP, Drug [place] 00 form: INJ, ONCE, Dosing Weight 86.364, kg, Start date: 06/10/16 16:32:00 [employer]IOR [employer] DEVELOPER, Stop date: 06/10/16 16:32:00 [employer]IOR [employer] DEVELOPER Furosemide 2015-06 No 60 mg, Memor ia 2 Route: l 22:32: IVP, Drug [place] 00 form: INJ, ONCE, Dosing Weight 86.364, kg, Start date: 06/10/16 16:32:00 S[employer]IOR [employer] DEVELOPER, Stop date: 06/10/16 16:32:00 S[employer]IOR [employer] DEVELOPER Furosemide 2015-06 No 60 mg, Memor ia 08-11 Route: l 22:32: IVP, Drug [place] 00 form: INJ, ONCE, Dosing Weight 86.364, kg, Start date: 06/10/16 16:32:00 [employer]IOR [employer] DEVELOPER, Stop date: 06/10/16 16:32:00 [employer]IOR [employer] DEVELOPER Lasix 2015-06 No Notes: Memoria 08-11 (Same as: l 17:: Lasix) Vin 00 MEDICATION WASTE Product Size: 40 mg Product Wasted: _0__ mg Albuterol 2015-06 No Notes: Memori a 0.833 MG/ML - (Same as: :: Duoneb) [place] Ipratropium 00 Gordon 0.167 MG/ML Inhalant Solution [DuoNeb] Lasix 2015-06 No Notes: Memoria 08-11 (Same as: l 17:: Lasix) Vin 00 MEDICATION WASTE Product Size: 40 mg Product Wasted: _0__ mg Albuterol 2015-06 No Notes: Memori a 0.833 MG/ML -21 (Same as: l :22: Duoneb) [place] Ipratropium 00 Gordon 0.167 MG/ML Inhalant Solution [DuoNeb] Lasix 2015-06 No Notes: Memoria 2-21 (Same as: l 17:22: Lasix) [place] 00 MEDICATION WASTE Product Size: 40 mg Product Wasted: _0__ mg Albuterol 2015-06 No Notes: Memori a 0.833 MG/ML - (Same as: :: Duoneb) [place] Ipratropium 00 Gordon 0.167 MG/ML Inhalant Solution [DuoNeb] Lasix 2015-06 No Notes: Memoria 08-11 (Same as: l :: Lasix) Vin 00 MEDICATION WASTE Product Size: 40 mg Product Wasted: _0__ mg Albuterol 2015-06 No Notes: Memori a 0.833 MG/ML 08-11 (Same as: : Duoneb) Vin Ipratropium 00 Gordon 0.167 MG/ML Inhalant Solution [DuoNeb] Lasix 2015-06 No Notes: Memoria 08-11 (Same as: : Lasix) Vin 00 MEDICATION WASTE Product Size: 40 mg Product Wasted: _0__ mg Albuterol 2015-06 No Notes: Memori a 0.833 MG/ML 08-11 (Same as: : Duoneb) Vin Ipratropium 00 Gordon 0.167 MG/ML Inhalant Solution [DuoNeb] Promethazin Yes [...] ne 06-26 Same as: l 11:48: Dilaudid [place] Hydromorpho No Notes: Mendoza janice ne 06-26 Same as: l 11:48: Dilaudid Vin Hydromorpho No Notes: Mendoza janice ne 06-26 Same as: l 11:48: Dilaudid [place] Hydromorpho No Notes: Mendoza janice ne 06-26 Same as: l 11:48: Dilaudid [place] hydrOXYzine Yes 0 Memori a pamoate 06-26 [...] Chloride 1-06 1,000 l 0.154 10:56: ml/hr, [place] MEQ/ML 00 Infuse Injectable Over: 2 Solution hr, Route: IV, 2,000, Drug form: INJ, ONCE, Priority: STAT, Dosing Weight 75 kg, Start date: 06/26/14 4:56:00, Duration: 1 doses or times, Stop date: 06/26/14 4:56:00 Lorazepam 2014-0 No Notes: Memori a 1-06 (Same as: l 10:56: Ativan) Sodium No 2,000 mL, Memori a Chloride 1-06 1,000 l 0.154 10:56: ml/hr, [place] MEQ/ML 00 Infuse Injectable Over: 2 Solution [...] Chloride 1-06 1,000 l 0.154 10:56: ml/hr, [place] MEQ/ML 00 Infuse Injectable Over: 2 Solution [...] Rate: 125 l 0.9% IV 04:10: ml/hr, [place] 1,000 mL 00 Infuse over: 8 hr, [...] Rate: 125 l 0.9% IV 04:10: ml/hr, [place] 1,000 mL 00 Infuse over: 8 hr, [...] Rate: 125 l 0.9% IV 04:10: ml/hr, [place] 1,000 mL 00 Infuse over: 8 hr, [...] Rate: 125 l 0.9% IV 04:10: ml/hr, [place] 1,000 mL 00 Infuse over: 8 hr, Route: IV, Dosing Weight 63.636 kg, Total Volume: 1,000, Start date: 04/14/13 23:10:00, Duration: 30 day, Stop date: 05/14/13 23:09:00 Saline 2012-06 No Matthew Gary 5 mL, Memor ia Flush 0.9% 0-26 Marry Route: l 04:10: IVP, Drug [place] 00 Form: INJ, Dosing Weight 63.636, kg, [...] 03/14/12 20:15:00, Stop date: 03/14/12 20:15:00 morphine 2011- No Hung Murillo 5 mg, Me moria Sulfate 9-25 Marx Route: l 01:15: IVP, ONCE, Dosing Weight 58.636, kg, Priority: STAT, Start date: 03/14/12 20:15:00, Stop date: 03/14/12 20:15:00 morphine 0 No Hung Murillo 5 mg, Me moria Sulfate 9-25 Marx Route: l 01:15: IVP, ONCE, Vin Dosing Weight 58.636, kg, Priority: STAT, Start date: 03/14/12 20:15:00, Stop date: 03/14/12 20:15:00 morphine 2012-0 No Hung Murillo 5 mg, Me moria Sulfate 9-25 Marx Route: l 01:15: IVP, ONCE, [place] 00 Dosing Weight 58.636, kg, Priority: STAT, [...] Marx Rate: 500 l 0.9% 23:45: ml/hr, [place] (Bolus) IV 00 Infuse 500 mL over: 1 hr, Route: IV, kg, Total Volume: 500, Bolus Dose, Priority: STAT, Start date: 03/14/12 18:45:00, Duration: 1 doses or times, Stop date: 03/14/12 19:44:00 Sodium 2012-0 No Hung Murillo 500 mL, Me moria Chloride 9-24 Marx Rate: 500 l 0.9% 23:45: ml/hr, [place] (Bolus) IV 00 Infuse 500 mL over: 1 hr, Route: IV, kg, Total Volume: 500, Bolus Dose, Priority: STAT, Start date: 03/14/12 18:45:00, Duration: 1 doses or times, Stop date: 03/14/12 19:44:00 Sodium 2011-0 No Hung Murillo 500 mL, Me moria Chloride 9-24 Marx Rate: 500 l 0.9% 23:45: ml/hr, [place] (Bolus) IV 00 Infuse 500 mL over: 1 hr, Route: IV, kg, Total Volume: 500, Bolus Dose, Priority: STAT, Start date: 03/14/12 18:45:00, Duration: 1 doses or times, Stop date: 03/14/12 19:44:00 Sodium 2011-0 No Hung Murillo 500 mL, Me moria Chloride 9-24 Marx Rate: 500 l 0.9% 23:45: ml/hr, [place] (Bolus) IV 00 Infuse 500 mL over: [...] 9-24 Marx Rate: l 0.9% 22:19: 1,000 [place] (Bolus) IV 00 ml/hr, 500 mL Infuse [...] No Hung Murillo 40 mg, Memoria e -24 Marx Route: l 22:19: IVP, ONCE, Dosing Weight 58.636, kg, For IV push reconstitu te with 10 ml 0.9% sodium chloride and push over at least 3 minutes, Priority: STAT, Start date: 03/14/12 17:19:00, Stop date: 03/14/12 17:19:00 Sodium 2011-0 No Hung Murillo 500 mL, Me moria Chloride -24 Marx Rate: l 0.9% 22:19: 1,000 Vin [...] 9-24 Marx Rate: l 0.9% 22:19: 1,000 [place] (Bolus) IV 00 ml/hr, 500 mL Infuse [...] 9-24 Marx Rate: l 0.9% 22:19: 1,000 [place] (Bolus) IV 00 ml/hr, 500 mL Infuse over: 0.5 hr, Route: IV, kg, Total Volume: 500, Bolus dose, Priority: STAT, Start date: 09/24/12 17:19:00, Duration: 1 doses or times, Stop [...] insulin No Blake 10 unit, 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 6-11 Deangelo 0.1 mL, l [...] 2011-0 No Blake 10 unit, 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 6-11 Deangelo 0.1 mL, l H 02:00: Brisa Route: Vin SUB-Q, Drug form: INJ, Bedtime, Start date: 11/29/11 21:00:00, Duration: 30 day, Stop date: 12/28/11 21:00:00 Insulin 2011-0 No Blake 8 unit, Mendoza janice regular 6-11 Deangelo 0.08 mL, l 02:00: Brisa Route: [place] SUB-Q, Drug form: SOLN, Bedtime, Start date: [...] 2011-0 No Blake 10 unit, 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 6-11 Deangelo 0.1 mL, l H 02:00: Route: [place] SUB-Q, Drug form: INJ, Bedtime, Start date: [...] 2011-0 No Blake 10 unit, 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 6-11 Deangelo 0.1 mL, l [...] 2011-0 No Blake 10 unit, 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 6-11 Deangelo 0.1 mL, l H 02:00: Route: [place] 00 SUB-Q, Drug form: INJ, Bedtime, Start date: 11/29/11 21:00:00, Duration: 30 day, Stop date: 12/28/11 21:00:00 Insulin 2011-0 No Blake 8 unit, Mendoza janice regular 6-11 Deangelo 0.08 mL, l 02:00: Route: [place] SUB-Q, Drug form: SOLN, Bedtime, Start date: [...] 6-10 Omidvar Route: l 21:33: IVP, ONCE, [place] 00 Start date: 11/29/11 16:33:00, Stop date: 11/29/11 16:33:00 morphine 2011-0 No [place] 2 mg, Memori a Sulfate 6-10 Omidvar Route: l 21:33: IVP, ONCE, [place] 00 Start date: 11/29/11 16:33:00, Stop date: 11/29/11 16:33:00 morphine 2011-0 No [place] 2 mg, Memori a Sulfate 6-10 Omidvar Route: l 21:33: IVP, ONCE, [place] 00 Start date: 11/29/11 16:33:00, Stop date: 11/29/11 16:33:00 morphine 2011-0 No [place] 2 mg, 0.5 Me moria Sulfate 6-10 Omidvar mL, Route: l 21:32: IVP, Drug [place] 00 form: INJ, ONCE, Start date: 11/29/11 16:32:00, Stop date: 11/29/11 16:32:00 morphine 2011-0 No [place] 2 mg, 0.5 Me moria Sulfate 6-10 Omidvar mL, Route: l 21:32: IVP, Drug [place] 00 form: INJ, ONCE, Start date: 11/29/11 16:32:00, Stop date: 11/29/11 16:32:00 morphine 2012-0 No [place] 2 mg, 0.5 Me moria Sulfate 6-10 Omidvar mL, Route: l 21:32: IVP, Drug [place] 00 form: INJ, ONCE, Start date: 11/29/11 16:32:00, Stop date: 11/29/11 16:32:00 morphine 2011-0 No [place] 2 mg, 0.5 Me moria Sulfate 6-10 Omidvar mL, Route: l 21:32: IVP, Drug Vin 00 form: INJ, ONCE, Start date: 11/29/11 16:32:00, Stop date: 11/29/11 16:32:00 morphine 2012-0 No [place] 2 mg, 0.5 Me moria Sulfate 6-10 Omidvar mL, Route: l 21:32: IVP, Drug [place] 00 form: INJ, ONCE, Start date: 11/29/11 [...] 2011-0 No [place] 14 unit, 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 6-10 Deangel[place] 0.14 mL, l [...] 2011-0 No [place] 14 unit, 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 6-10 Deangelo 0.14 mL, l H 14:00: Brisa Route: Vin 00 SUB-Q, Drug form: INJ, Daily, Start date: 11/29/11 9:00:00, Duration: 30 day, Stop date: 12/28/11 9:00:00 Insulin 2011-0 No [place] 10 unit, Mem oria regular 6-10 Deangelo 0.1 mL, l 14:00: Brisa Route: [place] 00 SUB-Q, Drug form: SOLN, Daily, Start [...] 2011-0 No [place] 14 unit, 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 6-10 Deangelo 0.14 mL, l H 14:00: Brisa Route: [place] SUB-Q, Drug form: INJ, Daily, Start date: [...] M emoria 6-10 Deangelo tab, l 14:00: Brsia Route: PO, Her braden 00 Drug form: TAB, Daily, Start date: 11/29/11 9:00:00, Duration: 30 day, Stop date: 12/28/11 9:00:00 insulin 2011-0 No Blake 14 unit, 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 6-10 Deangelo 0.14 mL, l H 14:00: Brisa Route: [place] SUB-Q, Drug form: INJ, Daily, Start date: [...] 1 Memoria 6-10 Deangelo tab, l 14:00: Brias Route: PO, Her braden 00 Drug form: TAB, BID, Start date: 11/29/11 9:00:00, Duration: 30 day, Stop date: 12/28/11 17:00:00 amLODipine 2011-0 No Blake 5 mg, 1 M emoria 6-10 Deangelo tab, l 14:00: Brisa Route: PO, Her braden 00 Drug form: TAB, Daily, Start date: 11/29/11 9:00:00, Duration: 30 day, Stop date: 12/28/11 9:00:00 insulin 2011-0 No Blake 14 unit, 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 6-10 Deangelo 0.14 mL, l [...] tab, l 14:00: Brisa Route: PO, braden Drug form: TAB, Daily, Start date: 11/29/11 9:00:00, Duration: 30 day, Stop date: 12/28/11 9:00:00 benztropine 2011-0 No Blake 1 mg, 1 Memoria 6-10 Deangelo tab, l 14:00: Route: PO, [...] 6-10 Deangelo 0.1 mL, l 06:30: Route: [place] 00 SUB-Q, Drug form: SOLN, TID-Before Meals, [...] l IV 1,000 mL 06:29: Brisa ml/hr, [place] 00 Infuse over: 5 hr, Route: IV, [...] 11/29/11 1:28:00, Stop date: 11/29/11 1:28:00 Saline No Blake 5 ml, Memoria [...] Route: l 06:28: Brisa IVP, Drug Herm aneem 00 form: INJ, Q6H, Priority: STAT, Start [...] janice 6-10 Deangelo mL, Route: l 06:28: [facility] IVP, Drug Herm naeem 00 form: INJ, [...] mL, Route: l 04:01: Brown IVP, Drug [place] 00 form: INJ, ONCE, Priority: STAT, Start date: 11/28/11 23:01:00, Stop date: 11/28/11 23:01:00 metoclopram 2011-0 No Nikki 10 mg, 2 Memoria gadiel 6-10 Sarah mL, Route: l 04:01: Brown IVP, Drug [place] 00 form: INJ, ONCE, Priority: STAT, Start [...] mL, Route: l 04:01: Brown IVP, Drug [place] 00 form: INJ, ONCE, Priority: STAT, Start [...] mL, Route: l 02:31: Brown IVP, Drug [place] 00 form: INJ, ONCE, Priority: STAT, Start date: 11/28/11 21:31:00, Stop date: 11/28/11 21:31:00 Zofran 2011-0 No Nikki 4 mg, 2 Mendoza janice 6-10 Sarah mL, Route: l 02:31: Brown IVP, Drug [place] 00 form: INJ, ONCE, Priority: STAT, Start [...] 21:31:00, Stop date: 11/28/11 21:31:00 NS (Bolus) 2011-0 No Arif Domenico 1,000 mL, Memoria IV 1,000 mL 6- Rate: l 22:48: 1,000 [place] 00 ml/hr, Infuse over: 1 hr, Route: IV, Dosing Weight 57.273 kg, Total Volume: 1,000, Start date: 11/28/11 17:48:00, Duration: 30 day, Stop date: 12/28/11 17:47:00 NS (Bolus) No Arif Domenico 1,000 mL, Memoria IV 1,000 mL 6- Rate: l 22:48: 1,000 [place] 00 ml/hr, Infuse over: 1 hr, Route: [...] 1,000 mL 6-09 Rate: l 20:36: 1,000 [place] 00 ml/hr, Infuse over: 1 hr, Route: IV, Dosing Weight 57.273 kg, Total Volume: 1,000, Start date: 11/28/11 15:36:00, Duration: 30 day, Stop date: 12/28/11 15:35:00 NS (Bolus) No Arif Domenico 1,000 mL, Memoria IV 1,000 mL 6-09 Rate: l 20:36: 1,000 Vin 00 ml/hr, Infuse over: 1 hr, Route: IV, Dosing Weight 57.273 kg, Total Volume: 1,000, Start date: 11/28/11 15:36:00, Duration: 30 day, Stop date: 12/28/11 15:35:00 NS (Bolus) No Arif Domenico 1,000 mL, Memoria IV 1,000 mL 6- Rate: l 20:36: 1,000 Ivn 00 ml/hr, Infuse over: 1 hr, Route: IV, Dosing Weight 57.273 kg, Total Volume: 1,000, Start date: 11/28/11 15:36:00, Duration: 30 day, Stop date: 12/28/11 15:35:00 NS (Bolus) No Arif Domenico 1,000 mL, Memoria IV 1,000 mL 6- Rate: l 20:36: 1,000 [place] 00 ml/hr, Infuse over: 1 hr, Route: IV, Dosing Weight 57.273 kg, Total Volume: 1,000, Start date: 11/28/11 15:36:00, Duration: 30 day, Stop date: 12/28/11 15:35:00 NS (Bolus) No Arif Domenico 1,000 mL, Memoria IV 1,000 mL 6-09 Rate: l 20:36: 1,000 Vin 00 ml/hr, Infuse over: 1 hr, Route: IV, Dosing Weight 57.273 kg, Total Volume: 1,000, Start date: 11/28/11 15:36:00, Duration: 30 day, Stop date: 12/28/11 15:35:00 Ativan 2012-0 No Arif Domenico 2 mg, 1 Mem oria 6-09 mL, Route: l 20:35: IVP, Drug Vin 00 form: INJ, ONCE, Priority: STAT, Start date: 11/28/11 15:35:00, Stop date: 11/28/11 15:35:00 Ativan No Arif Domenico 2 mg, 1 Mem oria 6-09 mL, Route: l 20:35: IVP, Drug [place] 00 form: INJ, ONCE, Priority: STAT, Start date: 11/28/11 15:35:00, Stop date: 11/28/11 15:35:00 Ativan No Arif Domenico 2 mg, 1 Mem oria 6-09 mL, Route: l 20:35: IVP, Drug Vin 00 form: INJ, ONCE, Priority: STAT, Start date: 11/28/11 15:35:00, Stop date: 11/28/11 15:35:00 Ativan No Arif Domenico 2 mg, 1 Mem oria 6-09 mL, Route: l 20:35: IVP, Drug [place] 00 form: INJ, ONCE, Priority: STAT, Start date: 11/28/11 15:35:00, Stop date: 11/28/11 15:35:00 Ativan No Arif Domenico 2 mg, 1 Mem oria 6-09 mL, Route: l 20:35: IVP, Drug Vin 00 form: INJ, ONCE, Priority: STAT, Start date: 11/28/11 15:35:00, Stop date: 11/28/11 15:35:00 Novolin R 2011-0 Yes Hughes-Jason 8 unit, M emoria 100 3-30 [place] SUB-Q, l units/mL 17:47: [place] Q12H, 2 He rmann injectable 42 Pu vial, solution Substituti on Allowed, SOLN Novolin R 2011-0 Yes Hughes-Jason 8 unit, M emoria 100 3-30 [place] SUB-Q, l units/mL 17:47: [place] Q12H, 2 He rmann injectable 42 Pu vial, solution Substituti on Allowed, SOLN Novolin R 2011-0 Yes Hughes-Jason 8 unit, M emoria 100 3-30 [place] SUB-Q, l units/mL 17:47: [place] Q12H, 2 He rmann injectable 42 Pu vial, solution Substituti on Allowed, SOLN Novolin R 2011- Yes Hughes-Jason 8 unit, M emoria 100 3-30 [place] SUB-Q, l units/mL 17:47: [place] Q12H, 2 He rmann injectable 42 Pu vial, solution Substituti on Allowed, SOLN Novolin R 2011- Yes Hughes-Jason 8 unit, M emoria 100 3-30 [place] SUB-Q, l units/mL 17:47: Dawson Q12H, 2 He rmann injectable 42 Pu vial, solution Substituti on Allowed, SOLN Novolin N Yes Hughes-Jason 10 unit, Memoria 100 3-30 [place] SUB-Q, l units/mL 17:46: Dawson Bedtime, H ermann subcutaneou 27 Pu 10 ml, s injection Substituti on Allowed, SUSP Novolin N Yes Hughes-Jason 10 unit, Memoria 100 3-30 [place] SUB-Q, l units/mL 17:46: Dawson Bedtime, H ermann subcutaneou 27 Pu 10 ml, s injection Substituti on Allowed, SUSP Novolin N Yes Hughes-Jason 10 unit, Memoria 100 3-30 [place] SUB-Q, l units/mL 17:46: Dawson Bedtime, H ermann subcutaneou 27 Pu 10 ml, s injection Substituti on Allowed, SUSP Novolin N Yes Hughes-Jason 10 unit, Memoria 100 3-30 [place] SUB-Q, l units/mL 17:46: Dawson Bedtime, H ermann subcutaneou 27 Pu 10 ml, s injection Substituti on Allowed, SUSP Novolin N Yes Hughes-Jason 10 unit, Memoria 100 3-30 [place] SUB-Q, l units/mL 17:46: Dawson Bedtime, H ermann subcutaneou 27 Pu 10 ml, s injection Substituti on Allowed, SUSP Novolin N Yes Hughes-Jason 14 unit, Memoria 100 3-30 [place] SUB-Q, l units/mL 17:44: Dawson QAM, 1 Her braden subcutaneou 37 Pu vial, s injection Substituti on Allowed, SUSP Novolin N Yes Hughes-Jason 14 unit, Memoria 100 3-30 [place] SUB-Q, l units/mL 17:44: Dawson QAM, 1 Her braden subcutaneou 37 Pu vial, s injection Substituti on Allowed, SUSP Novolin N Yes Hughes-Jason 14 unit, Memoria 100 3-30 [place] SUB-Q, l units/mL 17:44: Dawson QAM, 1 Her braden subcutaneou 37 Pu vial, s injection Substituti on Allowed, SUSP Novolin N Yes Hughes-Jason 14 unit, Memoria 100 3-30 [place] SUB-Q, l units/mL 17:44: Dawson QAM, 1 Her braden subcutaneou 37 Pu vial, s injection Substituti on Allowed, SUSP Novolin N Yes Hughes-Jason 14 unit, Memoria 100 3-30 [place] SUB-Q, l units/mL 17:44: Dawson QAM, 1 Her braden subcutaneou 37 Pu vial, s injection Substituti on Allowed, SUSP magnesium 0 No Hughes-Jason 400 mg, 1 Memoria oxide 3-30 [place] tab, l 14:55: Dawson Route: PO, Her braden 00 Pu Drug form: TAB, ONCE, Priority: STAT, Start date: 09/18/11 9:55:00, Stop date: 09/18/11 9:55:00 magnesium 2011-0 No Hughes-Jason 400 mg, 1 Memoria oxide 3-30 [place] tab, l 14:55: Dawson Route: PO, Her braden 00 Pu Drug form: TAB, ONCE, Priority: STAT, Start date: 09/18/11 9:55:00, Stop date: 09/18/11 9:55:00 magnesium 2011-0 No Hughes-Jason 400 mg, 1 Memoria oxide 3-30 [place] tab, l 14:55: Dawson Route: PO, Her braden 00 Pu Drug form: TAB, ONCE, Priority: STAT, Start date: 09/18/11 9:55:00, Stop date: 09/18/11 9:55:00 magnesium 2012-0 No Hughes-Jason 400 mg, 1 Memoria oxide 3-30 [place] tab, l 14:55: Dawson Route: PO, Her braden 00 Pu Drug form: TAB, ONCE, Priority: STAT, Start date: 09/18/11 9:55:00, Stop date: 09/18/11 9:55:00 magnesium 2012-0 No Hughes-Jason 400 mg, 1 Memoria oxide 3-30 [place] tab, l 14:55: Dawson Route: PO, Her bradne 00 Pu Drug form: TAB, ONCE, Priority: STAT, Start date: 09/18/11 9:55:00, Stop date: 09/18/11 9:55:00 Insulin 2011-0 No Hughes-Jason 8 unit, Mem oria regular 3-30 [place] 0.08 mL, l 14:22: Dawson Route: Vin 00 Pu SUB-Q, Drug form: SOLN, ONCE, Priority: STAT, Start date: 09/18/11 9:22:00, Stop date: 09/18/11 9:22:00 Insulin 2012-0 No Hughes-Jason 8 unit, Mem oria regular 3-30 [place] 0.08 mL, l 14:22: Dawson Route: [place] 00 Pu SUB-Q, Drug form: SOLN, ONCE, Priority: STAT, Start date: 09/18/11 9:22:00, Stop date: 09/18/11 9:22:00 Insulin 2012-0 No Hughes-Jason 8 unit, Mem oria regular 3-30 [place] 0.08 mL, l 14:22: Dawson Route: [place] 00 Pu SUB-Q, Drug form: SOLN, ONCE, Priority: STAT, Start date: 09/18/11 9:22:00, Stop date: 09/18/11 9:22:00 Insulin 2011-0 No Hughes-Jason 8 unit, Mem oria regular 3-30 [place] 0.08 mL, l 14:22: Dawson Route: Vin 00 Pu SUB-Q, Drug form: SOLN, ONCE, Priority: STAT, Start date: 09/18/11 9:22:00, Stop date: 09/18/11 9:22:00 Insulin 2012-0 No Hughes-Jason 8 unit, Mem oria regular 3-30 [place] 0.08 mL, l 14:22: Dawson Route: Vin 00 Pu SUB-Q, Drug form: SOLN, ONCE, Priority: STAT, Start date: 09/18/11 9:22:00, Stop date: 09/18/11 9:22:00 Lactated 2012-0 No Hughes-Jason 1,000 mL, Memoria Ringers 3-30 [place] Rate: l (Bolus) IV 14:16: [place] 1,000 He rmann 1,000 mL 00 Pu ml/hr, Infuse over: 1 hr, Route: IV, Total Volume: 1,000, Bolus Dose, Priority: STAT, Start date: 09/18/11 9:16:00, Duration: 1 doses or times, Stop date: 09/18/11 10:15:00 Lactated 2012-0 No Hughes-Jason 1,000 mL, Memoria Ringers 3-30 [place] Rate: l (Bolus) IV 14:16: Dawson 1,000 He rmann 1,000 mL 00 Pu ml/hr, Infuse over: 1 hr, Route: IV, Total Volume: 1,000, Bolus Dose, Priority: STAT, Start date: 09/18/11 9:16:00, Duration: 1 doses or times, Stop date: 09/18/11 10:15:00 Lactated 2012-0 No Hughes-Jason 1,000 mL, Memoria Ringers 3-30 [place] Rate: l (Bolus) IV 14:16: Dawson 1,000 He rmann 1,000 mL 00 Pu ml/hr, Infuse over: 1 hr, Route: IV, Total Volume: 1,000, Bolus Dose, Priority: STAT, Start date: 09/18/11 9:16:00, Duration: 1 doses or times, Stop date: 09/18/11 10:15:00 Lactated 2012-0 No Hughes-Jason 1,000 mL, Memoria Ringers 3-30 [place] Rate: l (Bolus) IV 14:16: Dawson 1,000 He rmann 1,000 mL 00 Pu ml/hr, Infuse over: 1 hr, Route: IV, Total Volume: 1,000, Bolus Dose, Priority: STAT, Start date: 09/18/11 9:16:00, Duration: 1 doses or times, Stop date: 09/18/11 10:15:00 Lactated 2012-0 No Hughes-Jason 1,000 mL, Memoria Ringers 3-30 [place] Rate: l (Bolus) IV 14:16: Dawson 1,000 He rmann 1,000 mL 00 Pu ml/hr, Infuse over: 1 hr, Route: IV, Total Volume: 1,000, Bolus Dose, Priority: STAT, Start date: 09/18/11 9:16:00, Duration: 1 doses or times, Stop date: 09/18/11 10:15:00 Sodium 2012-0 No Hughes-Jason 1,000 mL, Me moria Chloride 3-30 [place] Rate: l 0.9% 14:06: Dawson 1,000 [place] (Bolus) IV 00 Pu ml/hr, 1000 mL Infuse over: 1 hr, Route: IV, kg, Total Volume: 1,000, Bolus Dose, Priority: STAT, Start date: 09/18/11 9:06:00, Duration: 1 doses or times, Stop date: 09/18/11 10:05:00 Sodium 2012-0 No Hughes-Jason 1,000 mL, Me moria Chloride 3-30 [place] Rate: l 0.9% 14:06: Dawson 1,000 Vin (Bolus) IV 00 Pu ml/hr, 1000 mL Infuse over: 1 hr, Route: IV, kg, Total Volume: 1,000, Bolus Dose, Priority: STAT, Start date: 09/18/11 9:06:00, Duration: 1 doses or times, Stop date: 09/18/11 10:05:00 Sodium 2012-0 No Hughes-Jason 1,000 mL, Me moria Chloride 3-30 [place] Rate: l 0.9% 14:06: Dawson 1,000 Vin (Bolus) IV 00 Pu ml/hr, 1000 mL Infuse over: 1 hr, Route: IV, kg, Total Volume: 1,000, Bolus Dose, Priority: STAT, Start date: 09/18/11 9:06:00, Duration: 1 doses or times, Stop date: 09/18/11 10:05:00 Sodium 2012-0 No Hughes-Jason 1,000 mL, Me moria Chloride 3-30 [place] Rate: l 0.9% 14:06: Dawson 1,000 Vin (Bolus) IV 00 Pu ml/hr, 1000 mL Infuse over: 1 hr, Route: IV, kg, Total Volume: 1,000, Bolus Dose, Priority: STAT, Start date: 09/18/11 9:06:00, Duration: 1 doses or times, Stop date: 09/18/11 10:05:00 Sodium 2012-0 No Hughes-Jason 1,000 mL, Me moria Chloride 3-30 [place] Rate: l 0.9% 14:06: Dawson 1,000 [...] Memoria azole 3-30 on Allowed l 14:04: [place] 58 sulfamethox 2012-0 Yes Substituti Memoria azole 3-30 on Allowed l 14:04: Vin 58 sulfamethox 2012-0 Yes Substituti Memoria azole 3-30 on Allowed l 14:04: Vin 58 sulfamethox 2012-0 Yes Substituti Memoria azole 3-30 on Allowed l 14:04: Vin 58 Sodium 2012-0 No Hughes-Jason 1,000 mL, Me moria Chloride 3-30 [place] Rate: l 0.9% 13:56: Dawson 1,000 [place] (Bolus) IV 00 Pu ml/hr, 1000 mL Infuse over: 1 hr, Route: IV, kg, Total Volume: 1,000, Bolus Dose, Priority: STAT, Start date: 09/18/11 8:56:00, Duration: 1 doses or times, Stop date: 09/18/11 9:55:00 Sodium 2012-0 No Hughes-Jason 1,000 mL, Me moria Chloride 3-30 [place] Rate: l 0.9% 13:56: Dawson 1,000 Vin (Bolus) IV 00 Pu ml/hr, 1000 mL Infuse over: 1 hr, Route: IV, kg, Total Volume: 1,000, Bolus Dose, Priority: STAT, Start date: 09/18/11 8:56:00, Duration: 1 doses or times, Stop date: 09/18/11 9:55:00 Sodium 2012-0 No Hughes-Jason 1,000 mL, Me moria Chloride 3-30 [place] Rate: l 0.9% 13:56: Eunice 1,000 Vin (Bolus) IV 00 Pu ml/hr, 1000 mL Infuse over: 1 hr, Route: IV, kg, Total Volume: 1,000, Bolus Dose, Priority: STAT, Start date: 09/18/11 8:56:00, Duration: 1 doses or times, Stop date: 09/18/11 9:55:00 Sodium 2012-0 No Hughes-Jason 1,000 mL, Me moria Chloride 3-30 [place] Rate: l 0.9% 13:56: Eunice 1,000 [place] (Bolus) IV 00 Pu ml/hr, 1000 mL Infuse over: 1 hr, Route: IV, kg, Total Volume: 1,000, Bolus Dose, Priority: STAT, Start date: 09/18/11 8:56:00, Duration: 1 doses or times, Stop date: 09/18/11 9:55:00 Sodium 2012-0 No Hughes-Jason 1,000 mL, Me moria Chloride 3-30 [place] Rate: l 0.9% 13:56: Eunice 1,000 Vin (Bolus) IV 00 Pu ml/hr, 1000 mL Infuse over: 1 hr, Route: IV, kg, Total Volume: 1,000, Bolus Dose, Priority: STAT, Start date: 09/18/11 8:56:00, Duration: 1 doses or times, Stop date: 09/18/11 9:55:00 clindamycin 2012-0 No Eber L 300 mg, 2 Memoria 3-21 Anabelle cap, l 21:00: Route: PO, [place] 00 Drug form: CAP, Q8H, Start date: [...] 3-21 Anabelle cap, l 21:00: Route: PO, [place] 00 Drug form: CAP, Q8H, Start date: 09/09/11 16:00:00, Duration: 30 day, Stop date: 10/09/11 8:00:00 Colace 100 Yes Luna 100 mg, 1 Memoria mg oral 3-21 Amelia cap, PO, l capsule 18:47: Zeeshan BID, 60 Her braden 19 cap, Substituti on Allowed, CAP [place] 100 Yes Luna 100 mg, 1 Memoria mg oral 3-21 Amelia cap, PO, l capsule 18:47: [place] BID, 60 Her braden 19 cap, Substituti on Allowed, CAP Colace 100 Yes Luna 100 mg, 1 Memoria mg oral 3-21 Amelia cap, PO, l capsule 18:47: [place] BID, 60 Her braden 19 cap, Substituti on Allowed, CAP Colace 100 Yes Luna 100 mg, 1 Memoria mg oral 3-21 Amelia cap, PO, l capsule 18:47: [place] BID, 60 Her braden 19 cap, Substituti on Allowed, CAP Colace 100 2011- Yes Luna 100 mg, 1 Memoria mg oral 3-21 Amelia cap, PO, l capsule 18:47: [place] BID, 60 Her braden 19 cap, Substituti [...] 3-21 Amelia cap, PO, l capsule 18:46: [place] Q8H, 30 Her braden 55 cap, Substituti [...] braden 55 cap, Substituti on Allowed, CAP [place] Yes Luna 1 tab, PO, Memoria 10/325 oral 3-21 Amelia Q4H, PRN, l tablet 18:46: [place] 30 tab, Herm naeem 36 Pain, Substituti on Allowed, Maintenanc e, TAB [place] Yes Luna 1 tab, PO, Memoria 10/325 oral 3-21 Amelia Q4H, PRN, l tablet 18:46: Zeeshan 30 tab, Herm naeem 36 Pain, Substituti on Allowed, Maintenanc e, TAB [place] Yes Luna 1 tab, PO, Memoria 10/325 oral 3-21 Amelia Q4H, PRN, l tablet 18:46: [place] 30 tab, Herm naeem 36 Pain, Substituti on Allowed, Maintenanc e, TAB [place] Yes Luna 1 tab, PO, Memoria 10/325 oral 3-21 Amelia Q4H, PRN, l tablet 18:46: [place] 30 tab, Herm naeem 36 Pain, Substituti on Allowed, Maintenanc e, TAB [place] Yes Luna 1 tab, PO, Memoria 10/325 oral 3-21 Amelia Q4H, PRN, l tablet 18:46: [place] 30 tab, Herm naeem 36 Pain, Substituti on Allowed, Maintenanc e, TAB [place] No Hollie Donavan 1 tab, Mendoza janice 10/325 oral 3-21 [place] Route: PO, l tablet 09:00: Drug Form: Nidia nn 00 TAB, Q4H, Start date: 09/09/11 4:00:00, Duration: 30 day, Stop date: 10/09/11 0:00:00 [place] No Hollie Donavan 1 tab, Mendoza janice 10/325 oral 3-21 [place] Route: PO, l tablet 09:00: Drug Form: Nidia nn 00 TAB, Q4H, Start date: 09/09/11 4:00:00, Duration: 30 day, Stop date: 10/09/11 0:00:00 [place] No Hollie Donavan 1 tab, Mendoza janice 10/325 oral 3-21 [place] Route: PO, l tablet 09:00: Drug Form: Nidia nn 00 TAB, Q4H, Start date: 09/09/11 4:00:00, Duration: 30 day, Stop date: 10/09/11 0:00:00 [place] No Hollie Donavan 1 tab, Mendoza janice 10/325 oral 3-21 [place] Route: PO, l tablet 09:00: Drug Form: Nidia nn 00 TAB, Q4H, Start date: 09/09/11 4:00:00, Duration: 30 day, Stop date: 10/09/11 0:00:00 [place] No Hollie Donavan 1 tab, Mendoza janice [...] 3-19 Omidvar tab, l 15:30: Route: PO, [place] 00 Drug form: TAB, Daily, Start date: [...] Josefina 0.1 mL, l 14:19: Gavin Route: [place] 00 IVP, Drug form: INJ, Q2MIN, PRN Narcotic Reversal, Start date: 09/07/11 9:19:00, Duration: 8 doses or times, Stop date: Limited # of times ondansetron 2011-0 No Gayle 4 mg, 2 Memoria 3-19 Josefina mL, Route: l 14:19: [place] IVP, Drug Jake n 00 form: INJ, ONCE, PRN Nausea & Vomiting, Start date: 09/07/11 9:19:00 hydromorpho 2011-0 No Gayle 0.5 mg, Memoria ne 3-19 Josefina 0.25 mL, l 14:19: Gavin Route: [place] 00 IVP, Drug form: INJ, Q5Min, PRN [...] ne 3-19 Josefina 0.25 mL, l 14:19: [place] Route: Vin 00 IVP, Drug form: INJ, [...] Memoria 3-19 Josefina mL, Route: l 14:19: [place] IVP, Drug Jake n 00 form: INJ, PRN, PRN Benzodiaze pine Reversal, Initial dose, Start date: 09/07/11 9:19:00, Duration: 1 day, Stop date: 09/08/11 9:18:00 naloxone 2011-0 No Gayle 0.04 mg, Me moria 3-19 Josefina 0.1 mL, l 14:19: Gavin Route: [place] IVP, Drug form: INJ, Q2MIN, PRN Narcotic Reversal, Start date: 09/07/11 9:19:00, Duration: 8 doses or times, Stop date: Limited # of times ondansetron 0 No Gayle 4 mg, 2 Memoria 3-19 Josefina mL, Route: l 14:19: [place] IVP, Drug Jake n 00 form: INJ, ONCE, PRN Nausea & Vomiting, Start date: 09/07/11 9:19:00 hydromorpho 2011-0 No Gayle 0.5 mg, Memoria ne 3-19 Josefina 0.25 mL, l 14:19: Gavin Route: [place] 00 IVP, Drug form: INJ, Q5Min, PRN [...] moria 3-19 Josefina 0.1 mL, l 14:19: [place] Route: Vin 00 IVP, Drug form: INJ, Q2MIN, PRN Narcotic Reversal, Start date: 09/07/11 9:19:00, Duration: 8 doses or times, Stop date: Limited # of times ondansetron 2011-0 No Gayle 4 mg, 2 Memoria 3-19 Josefina mL, Route: l 14:19: [place] IVP, Drug Jake n 00 form: INJ, ONCE, PRN Nausea & Vomiting, Start date: 09/07/11 9:19:00 hydromorpho 2011-0 No Gayle 0.5 mg, Memoria ne 3-19 Josefina 0.25 mL, l 14:19: [place] Route: [place] 00 IVP, Drug form: INJ, Q5Min, PRN Pain Score 4-6, Start date: 09/07/11 9:19:00, Duration: 5 doses or times, Stop date: Limited # of times acetaminoph 2011-0 No Gayle 15 mL, Deepali emoria en-hydrocod 3-19 Josefina Route: PO, l one 325 14:19: Gavin Drug Form: He rmann mg-10 mg/15 00 SOLN, Q4H, mL oral PRN Pain solution Score 4-6, Start date: 09/07/11 9:19:00, Duration: 1 day, Stop date: 09/08/11 8:00:00 flumazenil No Gayle 0.2 mg, 2 Memoria 3-19 Josefina mL, Route: l 14:19: [place] IVP, Drug Jake n 00 form: INJ, PRN, PRN Benzodiaze pine Reversal, Initial dose, Start date: 09/07/11 9:19:00, Duration: 1 day, Stop date: 09/08/11 9:18:00 naloxone No Gayle 0.04 mg, Me moria 3-19 Josefina 0.1 mL, l 14:19: Gavin Route: [place] IVP, Drug form: INJ, Q2MIN, PRN Narcotic Reversal, Start date: 09/07/11 9:19:00, Duration: 8 doses or times, Stop date: Limited # of times ondansetron No Gayle 4 mg, 2 Memoria 3-19 Josefina mL, Route: l 14:19: [place] IVP, Drug Jake n 00 form: INJ, ONCE, PRN Nausea & Vomiting, Start date: 09/07/11 9:19:00 hydromorpho No Gayle 0.5 mg, Memoria ne - Josefina 0.25 mL, l 14:19: Gavin Route: [place] IVP, Drug form: INJ, Q5Min, PRN Pain Score 4-6, Start date: 09/07/11 9:19:00, Duration: 5 doses or times, Stop date: Limited # of times acetaminoph No Gayle 15 mL, M emoria en-hydrocod 09-06 Josefina Route: PO, l one 325 14:19: [place] Drug Form: He rmann mg-10 mg/15 00 [...] Memoria - Arias Route: l 13:31: IVPB, Vin 00 ONCE, Start date: 09/07/11 8:31:00, Stop date: 09/07/11 8:31:00 clindamycin 2011-0 No Maximo R 600 mg, Memoria 3-19 Ari[place] Route: l 13:31: IVPB, [place] 00 ONCE, Start date: 09/07/11 8:31:00, Stop date: 09/07/11 8:31:00 clindamycin 2011-0 No Maximo R 600 mg, Memoria 3-19 [place] Route: l 13:31: IVPB, [place] 00 ONCE, Start date: 09/07/11 8:31:00, Stop date: 09/07/11 8:31:00 clindamycin 2011-0 No Maximo R 600 mg, Memoria 3-19 [place] Route: l 13:31: IVPB, [place] 00 ONCE, Start date: 09/07/11 8:31:00, Stop [...] cap, l capsule 15:00: Route: PO, Herm Drug form: CAP, BID, PRN as needed for constipati on, Start date: 09/05/11 10:00:00, Duration: 30 day, Stop date: 10/05/11 9:00:00 potassium 2012-0 No [place] 40 mEq, 2 M emoria chloride 3-17 Omidvar tab, l 14:11: Route: PO, [place] 00 Drug form: ERTAB, ONCE, Start date: [...] 3-17 Omid[place] tab, l 14:11: Route: PO, [place] 00 Drug form: ERTAB, ONCE, Start date: 09/05/11 9:11:00, Stop date: 09/05/11 9:11:00 Dulcolax 2012-0 No Charbel A 10 mg, 2 M emoria Laxative 3-17 Wong tab, l 04:00: Route: PO, [place] 00 Drug form: ECTAB, Daily, PRN Constipati [...] 3-17 Wong tab, l 04:00: Route: PO, [place] 00 Drug form: ECTAB, Daily, PRN Constipati on, Priority: NOW, Start date: 09/04/11 23:00:00, Duration: 30 day, Stop date: 10/04/11 22:59:00 Dulcolax 2012-0 No Charbel A 10 mg, 2 M emoria Laxative 3-17 Wong tab, l 04:00: Route: PO, [place] 00 Drug form: ECTAB, Daily, PRN Constipati [...] Duration: 30 day, Stop date: 10/04/11 18:10:00 [place] 2012-0 No Mahammad 1 tab, Memori a 10/325 oral 3-16 Simeon Route: PO, l tablet 17:00: Dez Drug Form: He [place] 00 TAB, Q4H, Start date: 09/04/11 12:00:00, Duration: 30 day, Stop date: 10/04/11 8:00:00 [place] 2012-0 No Mahammad 1 tab, Memori a 10/325 oral 3-16 Simeon Route: PO, l tablet 17:00: Dez Drug Form: Tyrel dubonann 00 TAB, Q4H, Start date: 09/04/11 12:00:00, Duration: 30 day, Stop date: 10/04/11 8:00:00 [place] 2011-0 No Mahammad 1 tab, Memori a 10/325 oral 3-16 Simeon Route: PO, l tablet 17:00: Dez Drug Form: Tyrel dubonann 00 TAB, Q4H, Start date: 09/04/11 12:00:00, Duration: 30 day, Stop date: 10/04/11 8:00:00 [place] 2011-0 No Mahammad 1 tab, Memori a 10/325 oral 3-16 Simeon Route: PO, l tablet 17:00: Dez Drug Form: Tyrel dubonann 00 TAB, Q4H, Start date: 09/04/11 12:00:00, Duration: 30 day, Stop date: 10/04/11 8:00:00 [place] 2011-0 No Mahammad 1 tab, Memori a [...] 10cc/hr, l - site 1 14:50: Route: [place] 400 mL 00 NERVE BLOCK, Start date: 09/04/11 9:50:00 400 mL, Duration: 30 day, Stop date: 10/04/11 9:49:00 naloxone 2012-0 No Rosalino 0.04 mg, Me moria 3-16 Kavon 0.1 mL, l 14:50: Route: [place] 00 IVP, Drug form: INJ, Q2MIN, PRN [...] 3-16 Kavon 0.1 mL, l 14:50: Route: [place] 00 IVP, Drug form: INJ, Q2MIN, PRN [...] 10cc/hr, l - site 1 14:50: Route: [place] 400 mL 00 NERVE BLOCK, Start date: [...] 3-16 Kavon 0.1 mL, l 14:50: Route: [place] 00 IVP, Drug form: INJ, Q2MIN, PRN Narcotic Reversal, Start date: 09/04/11 9:50:00, Duration: 30 day, Stop date: 10/04/11 9:49:00 [place] No [place] 1 tab, Memoria 10/325 oral 3-16 Omidvar Route: PO, l tablet 14:49: Drug Form: Nidia nn 00 TAB, Q4H, PRN Pain, Start date: 09/04/11 9:49:00, Stop date: 10/04/11 9:48:00 [place] 0 No [place] 1 tab, Memoria 10/325 oral 3-16 Omidvar Route: PO, l tablet 14:49: Drug Form: Nidia nn 00 TAB, Q4H, PRN Pain, Start date: 09/04/11 9:49:00, Stop date: 10/04/11 9:48:00 [place] 0 No [place] 1 tab, Memoria 10/325 oral 3-16 Omidvar Route: PO, l tablet 14:49: Drug Form: Nidia nn 00 TAB, Q4H, PRN Pain, Start date: 09/04/11 9:49:00, Stop date: 10/04/11 9:48:00 [place] 0 No [place] 1 tab, Memoria 10/325 oral 3-16 Omidvar Route: PO, l tablet 14:49: Drug Form: Nidia nn 00 TAB, Q4H, PRN Pain, Start date: 09/04/11 9:49:00, Stop date: 10/04/11 9:48:00 [place] 0 No [place] 1 tab, Memoria 10/325 [...] Beck 0.5 mL, l 13:37: Hayden Route: [place] IVP, Drug form: INJ, Q30Min, PRN Other [...] Beck 0.1 mL, l 13:37: Hayden Route: [place] IVP, Drug form: INJ, Q2MIN, PRN Narcotic Reversal, Start date: 09/04/11 8:37:00, Duration: 8 doses or times, Stop date: Limited # of times meperidine 2011-0 No Hollie 12.5 mg, Me moria 3-16 Beck 0.5 mL, l 13:37: Hayden Route: [place] 00 IVP, Drug form: INJ, Q30Min, PRN [...] 3-15 Anabelle mL, Route: l 16:00: IVPB, [place] 00 [id number], Start date: 09/03/11 11:00:00, Duration: [...] date: 09/03/11 8:39:00, Stop date: 09/03/11 8:39:00 [place] 5/325 2011-0 No Rosalino 1 tab, M emoria oral tablet 09-02 Kavon Route: PO, l 05:00: Drug Form: Vin 00 TAB, Q4H, Start date: 09/03/11 0:00:00, Duration: 30 day, Stop date: 10/02/11 20:00:00 [place] 5/325 2011-0 No Rosalino 1 tab, M emoria oral tablet 09-02 Kavon Route: PO, l 05:00: Drug Form: [place] 00 TAB, Q4H, Start date: 09/03/11 0:00:00, Duration: 30 day, Stop date: 10/02/11 20:00:00 [place] 5/325 2011-0 No Rosalino 1 tab, M emoria oral tablet 09-02 Kavon Route: PO, l 05:00: Drug Form: Vin 00 TAB, Q4H, Start date: 09/03/11 0:00:00, Duration: 30 day, Stop date: 10/02/11 20:00:00 [place] 5/325 2012-0 No Rosalino 1 tab, M emoria oral tablet 3-15 Kavon Route: PO, l 05:00: Drug Form: [place] 00 TAB, Q4H, Start date: 09/03/11 0:00:00, Duration: 30 day, Stop date: 10/02/11 20:00:00 [place] 2012-0 No Rosalino 1 tab, M emoria oral tablet 3-15 Kavon Route: PO, l 05:00: Drug Form: Vin 00 TAB, Q4H, Start date: 09/03/11 0:00:00, Duration: 30 day, Stop date: 10/02/11 20:00:00 Geodon 2012-0 No Eber L 120 mg, 3 Memoria 3-15 Anabelle cap, l 02:00: Route: PO, [place] 00 Drug form: CAP, Bedtime, Start date: [...] 3-15 Anabelle cap, l 02:00: Route: PO, [place] 00 Drug form: CAP, Bedtime, Start date: [...] 3-15 Anabelle cap, l 02:00: Route: PO, [place] 00 Drug form: CAP, Bedtime, Start date: [...] 3-14 Anabelle cap, l 17:00: Route: PO, [place] Drug form: ERCAP, Daily, Give qAM after today's dose., Start date: 09/02/11 12:00:00, Duration: 30 day, Stop date: 10/02/11 9:00:00 Effexor XR 2012-0 No Eber L 75 mg, 1 Memoria 3-14 Anabelle cap, l 17:00: Route: PO, [place] 00 Drug form: ERCAP, Daily, Give qAM after today's dose., Start date: 09/02/11 12:00:00, Duration: 30 day, Stop date: 10/02/11 9:00:00 Effexor XR 2012-0 No Eber L 75 mg, 1 Memoria 3-14 Anabelle cap, l 17:00: Route: PO, [place] 00 Drug form: ERCAP, Daily, Give qAM after today's dose., Start date: 09/02/11 12:00:00, Duration: 30 day, Stop date: 10/02/11 9:00:00 Effexor XR 2012-0 No Eber L 75 mg, 1 Memoria 3-14 Anabelle cap, l 17:00: Route: PO, [place] 00 Drug form: ERCAP, Daily, Give qAM after today's dose., Start date: 09/02/11 12:00:00, Duration: 30 day, Stop date: 10/02/11 9:00:00 Effexor XR 2012-0 No Eber L 75 mg, 1 Memoria 3-14 Anabelle cap, l 17:00: Route: PO, [place] 00 Drug form: ERCAP, Daily, Give qAM after today's dose., Start date: 09/02/11 12:00:00, Duration: 30 day, Stop date: 10/02/11 9:00:00 [place] 5/325 2011-0 No Rosalino 1 tab, M emoria oral tablet 09-01 Kavon Route: PO, l 16:25: Drug Form: [place] 00 TAB, Q4H, PRN Pain, Start date: 09/02/11 11:25:00, Duration: 30 day, Stop date: 10/02/11 11:24:00 [place] 5/325 2011-0 No Rosalino 1 tab, M emoria oral tablet 09-01 Kavon Route: PO, l 16:25: Drug Form: Vin 00 TAB, Q4H, PRN Pain, Start date: 09/02/11 11:25:00, Duration: 30 day, Stop date: 10/02/11 11:24:00 [place] 5/325 2011-0 No Rosalino 1 tab, M emoria oral tablet 09-01 Kavon Route: PO, l 16:25: Drug Form: [place] 00 TAB, Q4H, PRN Pain, Start date: 09/02/11 11:25:00, Duration: 30 day, Stop date: 10/02/11 11:24:00 [place] 5/325 2011-0 No Rosalino 1 tab, M emoria oral tablet 09-01 Kavon Route: PO, l 16:25: Drug Form: Vin 00 TAB, Q4H, PRN Pain, Start date: 09/02/11 11:25:00, Duration: 30 day, Stop date: 10/02/11 11:24:00 [place] 5/325 2011-0 No Rosalino 1 tab, M emoria oral tablet 09-01 Kavon Route: PO, l 16:25: Drug Form: [place] 00 TAB, Q4H, PRN Pain, Start date: [...] Omidvar mL, Route: l 16:15: IVPB, Drug [place] 00 form: INJ, ONCE, Start date: 09/02/11 11:15:00, Stop date: 09/02/11 11:15:00 magnesium 2011-0 No [place] 4 gm, 50 Me moria sulfate 3-14 Omidvar mL, Route: l 16:15: IVPB, Drug [place] 00 form: INJ, ONCE, Start date: 09/02/11 11:15:00, Stop date: 09/02/11 11:15:00 magnesium 2011-0 No [place] 4 gm, 50 Me moria sulfate 3-14 Omidvar mL, Route: l 16:15: IVPB, Drug [place] 00 form: INJ, ONCE, Start date: 09/02/11 11:15:00, Stop date: 09/02/11 11:15:00 Lovenox 2011-0 No Missael 40 mg, 0.4 Mem oria 3-14 Movva mL, Route: l 14:00: SUB-Q, [place] 00 Drug form: INJ, Daily, Start date: 09/02/11 9:00:00, Duration: 30 day, Stop date: 10/01/11 9:00:00 vancomycin 2011-0 No Eber L 1 gm, Memoria 3-14 Anabelle Route: l 14:00: IVPB, Drug [place] 00 form: INJ, [id number], Start date: 09/02/11 9:00:00, Duration: 30 day, Stop date: 10/01/11 21:00:00 Lovenox 2011-0 No Missael 40 mg, 0.4 Mem oria 3-14 Movva mL, Route: l 14:00: SUB-Q, Vin 00 Drug form: INJ, Daily, Start date: 09/02/11 9:00:00, Duration: 30 day, Stop date: 10/01/11 9:00:00 vancomycin 2011-0 No Eber L 1 gm, Memoria 3-14 Anabelle Route: l 14:00: IVPB, Drug [place] 00 form: INJ, [id number], Start date: 09/02/11 9:00:00, Duration: 30 day, Stop date: 10/01/11 21:00:00 Lovenox 2012-0 No Missael 40 mg, 0.4 Mem oria 3-14 Movva mL, Route: l 14:00: SUB-Q, [place] 00 Drug form: INJ, Daily, Start date: 09/02/11 9:00:00, Duration: 30 day, Stop date: 10/01/11 9:00:00 vancomycin 2011-0 No Eber L 1 gm, Memoria 3-14 Anabelle Route: l 14:00: IVPB, Drug Vin 00 form: INJ, [id number], Start date: 09/02/11 9:00:00, Duration: 30 day, Stop date: 10/01/11 21:00:00 Lovenox 2012-0 No Missael 40 mg, 0.4 Mem oria 3-14 Movva mL, Route: l 14:00: SUB-Q, Vin Drug form: INJ, Daily, Start date: 09/02/11 9:00:00, Duration: 30 day, Stop date: 10/01/11 9:00:00 vancomycin 2011-0 No Eber L 1 gm, Memoria 3-14 Anabelle Route: l 14:00: IVPB, Drug [place] 00 form: INJ, [id number], Start date: 09/02/11 9:00:00, Duration: 30 day, Stop date: 10/01/11 21:00:00 Lovenox 2012-0 No Missael 40 mg, 0.4 Mem oria 3-14 Movva mL, Route: l 14:00: SUB-Q, [place] Drug form: INJ, Daily, Start date: 09/02/11 9:00:00, Duration: 30 day, Stop date: 10/01/11 9:00:00 vancomycin 2011-0 No Eber L 1 gm, Memoria 3-14 Anabelle Route: l 14:00: IVPB, Drug [place] 00 form: INJ, [id number], Start date: 09/02/11 9:00:00, Duration: 30 day, [...] 3-14 Anabelle mL, Route: l 10:00: IVPB, [place] 00 [id number], Start date: 09/02/11 5:00:00, Duration: [...] 3-14 Anabelle mL, Route: l 10:00: IVPB, [place] 00 [id number], Start date: 09/02/11 5:00:00, Duration: [...] Brandon mL, Route: l 04:00: Connally IVPB, [place] 00 [id number], Start date: 09/01/11 23:00:00, Duration: [...] Brandon mL, Route: l 04:00: [place] IVPB, [place] [id number], Start date: 09/01/11 23:00:00, Duration: 3 doses or times, Stop date: 09/02/11 15:00:00 insulin 2011-0 No [place] 15 unit, Mendoza janice 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 3-14 Omidvar 0.15 mL, l H 02:00: Route: Vin SUB-Q, Drug form: INJ, Q12H, Start date: 09/01/11 21:00:00, Stop date: 10/01/11 9:00:00 insulin 2011-0 No [place] 15 unit, Mendoza janice 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 3-14 Omid[place] 0.15 mL, l H 02:00: Route: Vin SUB-Q, Drug form: INJ, Q12H, Start date: 09/01/11 21:00:00, Stop date: 10/01/11 9:00:00 insulin 2011-0 No [place] 15 unit, Mendoza janice 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 3-14 Omidvar 0.15 mL, l H 02:00: Route: Vin SUB-Q, Drug form: INJ, Q12H, Start date: 09/01/11 21:00:00, Stop date: 10/01/11 9:00:00 insulin 2011-0 No [place] 15 unit, Mendoza janice 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 3-14 Omid[place] 0.15 mL, l H 02:00: Route: Vin SUB-Q, Drug form: INJ, Q12H, Start date: 09/01/11 21:00:00, Stop date: 10/01/11 9:00:00 insulin No [place] 15 unit, Mendoza janice 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 3-14 Omidvar 0.15 mL, l H 02:00: Route: Vin 00 SUB-Q, Drug form: INJ, Q12H, Start date: 09/01/11 21:00:00, Stop date: 10/01/11 9:00:00 labetalol No Mariaelena-Corea 5 mg, Me moria 3-14 Barbra Route: l 01:07: Feliciano IVP, [place] 00 Q5Min, PRN Elevated BP, Start date: [...] 3-14 Barbra Route: l 01:07: Feliciano IVP, [place] 00 Q5Min, PRN Pain Score 4-6, Start date: 09/01/11 20:07:00, Duration: 5 doses or times, Stop date: Limited # of times naloxone No Mariaelena-Corea 0.04 mg, Memoria 3-14 Barbra Route: l 01:07: Feliciano IVP, [place] 00 Q2MIN, PRN Narcotic Reversal, Start date: 09/01/11 20:07:00, Duration: 8 doses or times, Stop date: Limited # of times flumazenil No Mariaelena-Corea 0.2 mg, Memoria 3-14 Barbra Route: l 01:07: Feliciano IVP, PRN, [place] 00 PRN Benzodiaze pine Reversal, Initial dose, Start date: 09/01/11 20:07:00, Duration: 30 day, Stop date: 10/01/11 20:06:00 ondansetron 2012-0 No Mariaelena-Corea 4 mg, Memoria 3-14 Barbra Route: l 01:07: Feliciano IVP, ONCE, Vin 00 PRN Nausea & Vomiting, Start date: 09/01/11 20:07:00 labetalol No Mariaelena-Corea 5 mg, Me moria 3-14 Barbra Route: l 01:07: Feliciano IVP, [place] 00 Q5Min, PRN Elevated BP, Start date: 09/01/11 20:07:00, Duration: 5 doses or times, Stop date: Limited # of times hydrALAZINE No Mariaelena-Corea 5 mg, Memoria 3-14 Barbra Route: l 01:07: Feliciano IVP, [place] 00 Q5Min, PRN Elevated BP, Start date: 09/01/11 20:07:00, Duration: 4 doses or times, Stop date: Limited # of times hydromorpho No Mariaelena-Corea 0.5 mg, Memoria ne 3-14 Barbra Route: l 01:07: Feliciano IVP, [place] 00 Q5Min, PRN Pain Score 4-6, Start date: 09/01/11 20:07:00, Duration: 5 doses or times, Stop date: Limited # of times naloxone No Mariaelena-Corea 0.04 mg, Memoria 3-14 Barbra Route: l 01:07: Feliciano IVP, [place] 00 Q2MIN, PRN Narcotic Reversal, Start date: [...] Barbra Route: l 01:07: Feliciano IVP, ONCE, [place] 00 PRN Nausea & Vomiting, Start date: 09/01/11 20:07:00 labetalol 2012-0 No Mariaelena-Corea 5 mg, Me moria 3-14 Barbra Route: l 01:07: Feliciano IVP, Vin 00 Q5Min, PRN Elevated BP, Start date: 09/01/11 20:07:00, Duration: 5 doses or times, Stop date: Limited # of times hydrALAZINE No Mariaelena-Corea 5 mg, Memoria 3-14 Barbra Route: l 01:07: Feliciano IVP, [place] 00 Q5Min, PRN Elevated BP, Start date: 09/01/11 20:07:00, Duration: 4 doses or times, Stop date: Limited # of times hydromorpho No Mariaelena-Corea 0.5 mg, Memoria ne 3-14 Barbra Route: l 01:07: Feliciano IVP, Vni 00 Q5Min, PRN Pain Score 4-6, Start date: 09/01/11 20:07:00, Duration: 5 doses or times, Stop date: Limited # of times naloxone No Mariaelena-Corea 0.04 mg, Memoria 3-14 Barbra Route: l 01:07: Feliciano IVP, [place] 00 Q2MIN, PRN Narcotic Reversal, Start date: [...] 3-14 Barbra Route: l 01:07: Feliciano IVP, [place] 00 Q5Min, PRN Elevated BP, Start date: [...] 3-14 Barbra Route: l 01:07: Feliciano IVP, [place] 00 Q2MIN, PRN Narcotic Reversal, Start date: [...] 3-14 Barbra Route: l 01:07: Feliciano IVP, [place] 00 Q5Min, PRN Elevated BP, Start date: 09/01/11 20:07:00, Duration: 5 doses or times, Stop date: Limited # of times hydrALAZINE 0 No Mariaelena-Corea 5 mg, Memoria 3-14 Barbra Route: l 01:07: Feliciano IVP, [place] 00 Q5Min, PRN Elevated BP, Start date: [...] 3-14 Barbra Route: l 01:07: Feliciano IVP, [place] 00 Q2MIN, PRN Narcotic Reversal, Start date: 09/01/11 20:07:00, Duration: 8 doses or times, Stop date: Limited # of times flumazenil No Mariaelena-Corea 0.2 mg, Memoria 3-14 Barbra Route: l 01:07: Feliciano IVP, PRN, [place] 00 PRN Benzodiaze pine Reversal, Initial dose, Start date: 09/01/11 20:07:00, Duration: 30 day, Stop date: 10/01/11 20:06:00 ondansetron No Mariaelena-Corea 4 mg, Memoria 3-14 Barbra Route: l 01:07: Feliciano IVP, ONCE, [place] 00 PRN Nausea & Vomiting, Start date: 09/01/11 20:07:00 vancomycin No Mele 1 gm, Mem oria 3-14 Gauvain Route: l 01:00: IVPB, Drug Vin 00 form: INJ, [id number], Start date: 09/01/11 20:00:00, Duration: 30 day, Stop date: 10/01/11 8:00:00 vancomycin 0 No Mele 1 gm, Mem oria 3-14 Gauvain Route: l 01:00: IVPB, Drug Vin 00 form: INJ, [id number], Start date: 09/01/11 20:00:00, Duration: 30 day, Stop date: 10/01/11 8:00:00 vancomycin 2011-0 No Mele 1 gm, Mem oria 3-14 Gauvain Route: l 01:00: IVPB, Drug [place] 00 form: INJ, [id number], Start date: 09/01/11 20:00:00, Duration: 30 day, Stop date: 10/01/11 8:00:00 vancomycin 2011-0 No Mele 1 gm, Mem oria 3-14 Gauvain Route: l 01:00: IVPB, Drug [place] 00 form: INJ, [id number], Start date: 09/01/11 20:00:00, Duration: 30 day, Stop date: 10/01/11 8:00:00 vancomycin 2011-0 No Mele 1 gm, Mem oria 3-14 Gauvain Route: l 01:00: IVPB, Drug Vin 00 form: INJ, [id number], Start date: 09/01/11 20:00:00, Duration: 30 day, [...] 30 day, Stop date: 10/01/11 19:54:00 Lactated 2012-0 No Charbel A 1,000 mL, Memoria Ringers IV 3-14 Wong Rate: 125 l 1,000 mL 00:55: ml/hr, Vin 00 Infuse over: 8 hr, Route: IV, Dosing Weight 68.2 kg, Total Volume: 1,000, Start date: 09/01/11 19:55:00, Duration: 30 day, Stop date: 10/01/11 19:54:00 Lactated 2011-0 No Charbel A 1,000 mL, Memoria Ringers IV 3-14 Wong Rate: 125 l 1,000 mL 00:55: ml/hr, [place] 00 Infuse over: 8 hr, Route: IV, Dosing Weight 68.2 kg, Total Volume: 1,000, Start date: 09/01/11 19:55:00, Duration: 30 day, Stop date: 10/01/11 19:54:00 Lactated 2011-0 No Charbel A 1,000 mL, Memoria Ringers IV 3-14 Wong Rate: 125 l 1,000 mL 00:55: ml/hr, [place] 00 Infuse over: 8 hr, Route: IV, Dosing Weight 68.2 kg, Total Volume: 1,000, Start date: 09/01/11 19:55:00, Duration: 30 day, Stop date: 10/01/11 19:54:00 vancomycin 2011-0 No Missael 1 gm, Memor ia 3-14 Movva Route: l 00:00: IVPB, Drug [place] 00 form: INJ, [id number], Start date: 09/01/11 19:00:00, Duration: 30 day, Stop date: 10/01/11 7:00:00 vancomycin 2011-0 No Missael 1 gm, Memor ia 3-14 Movva Route: l 00:00: IVPB, Drug [place] 00 form: INJ, [id number], Start date: 09/01/11 19:00:00, Duration: 30 day, Stop date: 10/01/11 7:00:00 vancomycin 2011-0 No Missael 1 gm, Memor ia 3-14 Movva Route: l 00:00: IVPB, Drug Vin 00 form: INJ, [id number], Start date: 09/01/11 19:00:00, Duration: 30 day, Stop date: 10/01/11 7:00:00 vancomycin 2011-0 No Missael 1 gm, Memor ia 3-14 Movva Route: l 00:00: IVPB, Drug [place] 00 form: INJ, [id number], Start date: 09/01/11 19:00:00, Duration: 30 day, Stop date: 10/01/11 7:00:00 vancomycin 2012-0 No Missael 1 gm, Memor ia 3-14 Movva Route: l 00:00: IVPB, Drug Vin 00 form: INJ, [id number], Start date: 09/01/11 19:00:00, Duration: 30 day, Stop date: 10/01/11 7:00:00 insulin 2011-0 No Missael 6 unit, Memori a aspart 3-13 Movva 0.06 mL, l 23:23: Route: [place] 00 SUB-Q, Drug form: SOLN, TID-Before Meals, [...] 3-13 Movva 0.06 mL, l 23:23: Route: [place] 00 SUB-Q, Drug form: SOLN, TID-Before Meals, PRN Blood Glucose Results, Start date: 09/01/11 18:23:00, Duration: 30 day, Stop date: 10/01/11 18:22:00 glucagon 2012-0 No Missael 1 mg, Memoria 3-13 Movva Route: IM, l 23:23: Drug form: [place] 00 PDR/INJ, PRN, PRN Blood Glucose Results, [...] 3-13 Movva 0.06 mL, l 23:23: Route: [place] 00 SUB-Q, Drug form: SOLN, TID-Before Meals, [...] Movva Route: IM, l 23:23: Drug form: [place] 00 PDR/INJ, PRN, PRN Blood Glucose Results, [...] Movva Route: IM, l 23:23: Drug form: [place] 00 PDR/INJ, PRN, PRN Blood Glucose Results, [...] Beni mL, Route: l 21:14: IVP, Drug [place] 00 form: INJ, Q4H, PRN Severe Pain, Start date: 09/01/11 16:14:00, Stop date: 10/01/11 16:13:00 morphine 2012-0 No Daja Shannan 2 mg, 1 M emoria Sulfate 3-13 Beni mL, Route: l 21:14: IVP, Drug [place] 00 form: INJ, Q4H, PRN Severe Pain, [...] mL, Me moria Ringers IV 3-13 Manuel [place] Rate: 100 l 1,000 mL 19:03: ml/hr, Vin 00 Infuse over: 10 hr, Route: IV, Dosing Weight 68.182 kg, Total Volume: 1,000, Start date: 09/01/11 14:03:00, Duration: 30 day, Stop date: 10/01/11 14:02:00 Lactated 2012-0 No Cesar 1,000 mL, Me moria Ringers IV 3-13 Manuel [place] Rate: 100 l 1,000 mL 19:03: ml/hr, [place] 00 Infuse over: 10 hr, Route: IV, Dosing Weight 68.182 kg, Total Volume: 1,000, Start date: 09/01/11 14:03:00, Duration: 30 day, Stop date: 10/01/11 14:02:00 Lactated 2012-0 No Cesar 1,000 mL, Me moria Ringers IV 3-13 Manuel [place] Rate: 100 l 1,000 mL 19:03: ml/hr, [place] 00 Infuse over: 10 hr, Route: IV, Dosing Weight 68.182 kg, Total Volume: 1,000, Start date: 09/01/11 14:03:00, Duration: 30 day, Stop date: 10/01/11 14:02:00 Lactated 2012-0 No Cesar 1,000 mL, Me moria Ringers IV 3-13 Manuel [place] Rate: 100 l 1,000 mL 19:03: ml/hr, [place] 00 Infuse over: 10 hr, Route: IV, Dosing Weight 68.182 kg, Total Volume: 1,000, Start date: 09/01/11 14:03:00, Duration: 30 day, Stop date: 10/01/11 14:02:00 Lactated 2012-0 No Cesar 1,000 mL, Me moria Ringers IV 3-13 Manuel [place] Rate: 100 l 1,000 mL 19:03: ml/hr, [place] 00 Infuse over: 10 hr, Route: IV, [...] Madden Rate: l 0.9% 14:53: Gurinder 1,000 [place] (Bolus) IV 00 ml/hr, 1,000 mL Infuse [...] L 1,000 mL, M emoria Chloride 08-31 Noble Rate: l 0.9% 10:41: 1,000 Vin (Bolus) IV 00 ml/hr, 1000 mL Infuse over: 1 hr, Route: IV, Dosing Weight 68.182 kg, Total Volume: 1,000, Bolus Dose, Priority: STAT, Start date: 09/01/11 5:41:00, Duration: 1 doses or times, Stop date: 09/01/11 6:40:00 Sodium 2011-0 No Bee L 1,000 mL, M emoria Chloride 08-31 [place] Rate: l 0.9% 10:41: 1,000 [place] (Bolus) IV 00 ml/hr, 1000 mL Infuse over: 1 hr, Route: IV, Dosing Weight 68.182 kg, Total Volume: 1,000, Bolus Dose, Priority: STAT, Start date: 09/01/11 5:41:00, Duration: 1 doses or times, Stop date: 09/01/11 6:40:00 Sodium 2012-0 No Bee L 1,000 mL, M emoria Chloride 3-13 Noble Rate: l 0.9% 10:41: 1,000 Vin (Bolus) IV 00 ml/hr, 1000 mL Infuse over: 1 hr, Route: IV, Dosing Weight 68.182 kg, Total Volume: 1,000, Bolus Dose, Priority: STAT, Start date: 09/01/11 5:41:00, Duration: 1 doses or times, Stop date: 09/01/11 6:40:00 Sodium 2011-0 No Bee L 1,000 mL, M emoria Chloride 3-13 [place] Rate: l 0.9% 10:41: 1,000 Ivn (Bolus) IV 00 ml/hr, 1000 mL Infuse [...] 3- [place] Route: l 09:06: IVP, Drug [place] 00 form: INJ, ONCE, Priority: STAT, Start date: 09/01/11 4:06:00, Stop date: 09/01/11 4:06:00 morphine 2011-0 No Bee L 4 mg, Mem oria Sulfate 3-13 Noble Route: l 09:06: IVP, ONCE, Vin 00 [...] No Bee L 4 mg, Memoria 3-13 Noble Route: l 09:06: IVP, Drug [place] 00 form: INJ, ONCE, Priority: STAT, Start date: 09/01/11 4:06:00, Stop date: 09/01/11 4:06:00 morphine 2011-0 No Bee L 4 mg, Mem oria Sulfate 3-13 Noble Route: l 09:06: IVP, ONCE, [place] 00 Priority: STAT, Start date: 09/01/11 4:06:00, Stop date: 09/01/11 4:06:00 ondansetron 2011-0 No Bee L 4 mg, Memoria 3-13 [place] Route: l 09:06: IVP, Drug [place] 00 form: INJ, ONCE, Priority: STAT, Start date: 09/01/11 4:06:00, Stop date: 09/01/11 4:06:00 morphine 2011-0 No Bee L 4 mg, Mem oria Sulfate 3-13 Noble Route: l 09:06: IVP, ONCE, Vin 00 Priority: STAT, Start date: 09/01/11 4:06:00, Stop date: 09/01/11 4:06:00 ondansetron 2011-0 No Bee L 4 mg, Memoria 3-13 Noble Route: l 09:06: IVP, Drug Vin 00 form: INJ, ONCE, Priority: STAT, Start date: 09/01/11 4:06:00, Stop date: 09/01/11 4:06:00 morphine 2011-0 No Bee L 4 mg, Mem oria Sulfate 08-31 Noble Route: l 09:06: IVP, ONCE, Vin 00 Priority: STAT, Start date: 09/01/11 4:06:00, Stop date: 09/01/11 4:06:00 Sodium 2011-0 No Bee L 1,000 mL, M emoria Chloride 3- Noble Rate: l 0.9% 08:42: 1,000 [place] (Bolus) IV 00 ml/hr, 1000 mL Infuse over: 1 hr, Route: IV, Dosing Weight 68.182 kg, Total Volume: 1,000, Bolus Dose, Priority: STAT, Start date: 09/01/11 3:42:00, Duration: 1 doses or times, Stop date: 09/01/11 4:41:00 Sodium 2011-0 No Bee L 1,000 mL, M emoria Chloride 08-31 Noble Rate: l 0.9% 08:42: 1,000 Vin (Bolus) IV 00 ml/hr, 1000 mL Infuse over: 1 hr, Route: IV, Dosing Weight 68.182 kg, Total Volume: 1,000, Bolus Dose, Priority: STAT, Start date: 09/01/11 3:42:00, Duration: 1 doses or times, Stop date: 09/01/11 4:41:00 Sodium 2011-0 No Bee L 1,000 mL, M emoria Chloride 3 Noble Rate: l 0.9% 08:42: 1,000 [place] (Bolus) IV 00 ml/hr, 1000 mL Infuse over: 1 hr, Route: IV, Dosing Weight 68.182 kg, Total Volume: 1,000, Bolus Dose, Priority: STAT, Start date: 09/01/11 3:42:00, Duration: 1 doses or times, Stop date: 09/01/11 4:41:00 Sodium 2011-0 No Bee L 1,000 mL, M emoria Chloride 3- [place] Rate: l 0.9% 08:42: 1,000 [place] (Bolus) IV 00 ml/hr, 1000 mL Infuse over: 1 hr, Route: IV, Dosing Weight 68.182 kg, Total Volume: 1,000, [place] Dose, Priority: STAT, Start date: 09/01/11 3:42:00, Duration: 1 doses or times, Stop date: 09/01/11 4:41:00 Sodium 2011-0 No Bee L 1,000 mL, M emoria Chloride 3-13 [place] Rate: l 0.9% 08:42: 1,000 [place] (Bolus) IV 00 ml/hr, 1000 mL Infuse [...] 3-13 [place] 0.08 mL, l 08:30: Route: [place] 00 IVP, Drug form: SOLN, ONCE, Priority: STAT, Start date: 09/01/11 3:30:00, Stop date: 09/01/11 3:30:00 Insulin 2011-0 No Bee L 8 unit, Me moria regular 3-13 [place] 0.08 mL, l 08:30: Route: Vin 00 IVP, Drug form: SOLN, ONCE, Priority: STAT, Start date: 09/01/11 3:30:00, Stop date: 09/01/11 3:30:00 Insulin 2011-0 No Bee L 8 unit, Me moria regular 08-31 [place] 0.08 mL, l 08:30: Route: Vin 00 IVP, Drug form: SOLN, ONCE, Priority: STAT, Start date: 09/01/11 3:30:00, Stop date: 09/01/11 3:30:00 Sodium 2011-0 No Bee L 1,000 mL, M emoria Chloride 3- [place] Rate: l 0.9% 07:29: 1,000 [place] (Bolus) IV 00 ml/hr, 1,000 mL Infuse [...] 3- [place] Rate: l 0.9% 07:29: 1,000 [place] (Bolus) IV 00 ml/hr, 1,000 mL Infuse over: 1 hr, Route: IV, Dosing Weight 68.182 kg, Total Volume: 1,000, [place] Dose, Priority: STAT, Start date: 09/01/11 2:29:00, Duration: 1 doses or times, Stop date: 09/01/11 3:28:00 Sodium 2011-0 No Bee L 1,000 mL, M emoria Chloride 3- [place] Rate: l 0.9% 07:29: 1,000 Vin (Bolus) [...] 3-04 [place] tab, l 15:00: Route: PO, [place] Drug form: ERTAB, BID, Start date: 08/23/11 9:00:00, Duration: 2 doses or times, Stop date: 08/23/11 17:00:00 potassium 2011-0 No [place] Noam 40 mEq, 2 [place] chloride 3-04 Akmal tab, l 15:00: Route: PO, [place] Drug form: ERTAB, BID, Start date: 08/23/11 9:00:00, Duration: 2 doses or times, Stop date: 08/23/11 17:00:00 potassium 2012-0 No Brooks Noam 40 mEq, 2 [place] chloride 3-04 [place] tab, l 15:00: Route: PO, [place] Drug form: ERTAB, BID, Start date: 08/23/11 [...] Akmal SUB-Q, l units/mL 14:42: BID, 3 [place] subcutaneou 04 vial, 3, s injection 3, Substituti on Allowed, SUSP Novolin N Yes Brooks Noam 18 Units, Mem[facility] 100 3-04 [place] SUB-Q, l units/mL 14:42: BID, 3 [place] subcutaneou 04 vial, 3, s injection 3, Substituti on Allowed, SUSP Novolin N Yes Brooks Noam 18 Units, Mem[facility] 100 3-04 [place] SUB-Q, l units/mL 14:42: BID, 3 Vin subcutaneou 04 vial, 3, s injection 3, Substituti on Allowed, SUSP Novolin N Yes Brooks Noam 18 Units, [facility] 100 3-04 [place] SUB-Q, l units/mL 14:42: BID, 3 [place] subcutaneou 04 vial, 3, s injection 3, [...] 3-04 [place]km[place] 100 mL, l 14:00: Route: [place] 00 IVPB, Drug form: INJ, Q2H, Start date: 08/23/11 8:00:00, Duration: 2 doses or times, Stop date: 08/23/11 10:00:00 potassium 2011-0 No Brooks Noam 20 mEq, [place] chloride 3-04 [place]km[place] 100 mL, l 14:00: Route: [place] 00 IVPB, Drug form: INJ, Q2H, Start date: 08/23/11 8:00:00, Duration: 2 doses or times, Stop date: 08/23/11 10:00:00 potassium 2011-0 No Brooks Noam 20 mEq, [place] chloride 3-04 [place] 100 mL, l 14:00: Route: [place] 00 IVPB, Drug form: INJ, Q2H, Start [...] chloride 3-04 [place] Route: l 13:28: IVPB, [place] 00 ONCE, Priority: STAT, Start date: 08/23/11 7:28:00, Stop date: 08/23/11 7:28:00 calcium 2011-0 No Brooks Noam 1 gm, Mem oria chloride 3-04 [place] Route: l 13:28: IVPB, [place] 00 ONCE, Priority: STAT, Start date: 08/23/11 [...] 3-04 [place] Route: IV, l 12:29: ONCE, [place] 00 Start date: 08/23/11 6:29:00, Stop date: [...] [place] mL, Route: l 12:26: IVPB, Drug [place] 00 form: INJ, ONCE, Total dose = 2 gm, Start date: 08/23/11 6:26:00, Duration: 1 doses or times, Stop date: 08/23/11 6:26:00 magnesium 2012-0 No Brooks Noam 2 gm, 50 Memoria sulfate 3-04 [place] mL, Route: l 12:26: IVPB, Drug [place] 00 form: INJ, ONCE, Total dose = 2 gm, Start date: 08/23/11 6:26:00, Duration: 1 doses or times, Stop date: 08/23/11 6:26:00 magnesium 2012-0 No Brooks Noam 2 gm, 50 Memoria sulfate 3-04 [place] mL, Route: l 12:26: IVPB, Drug [place] 00 form: INJ, ONCE, Total dose = 2 gm, Start date: 08/23/11 6:26:00, Duration: 1 doses or times, Stop date: 08/23/11 6:26:00 magnesium 2011-0 No Brooks Noam 2 gm, 50 Memoria sulfate 3-04 [place] mL, Route: l 12:26: IVPB, Drug [place] 00 form: INJ, ONCE, Total dose = [...] Rodriguez 10 mL, l 16:25: Ahmed Route: [place] 00 IVPB, ONCE, Start date: 08/22/11 10:25:00, [...] Rodriguez 10 mL, l 16:25: Ahmed Route: [place] 00 IVPB, ONCE, Start date: 08/22/11 10:25:00, [...] [place] mL, Route: l 13:26: IVPB, Drug [place] 00 form: INJ, ONCE, Total dose = 2 gm, Start date: 08/22/11 7:26:00, Duration: 1 doses or times, Stop date: 08/22/11 7:26:00 magnesium 2012-0 No Brooks Noam 2 gm, 50 Memoria sulfate 3-03 [place] mL, Route: l 13:26: IVPB, Drug [place] 00 form: INJ, ONCE, Total dose = 2 gm, Start date: 08/22/11 7:26:00, Duration: 1 doses or times, Stop date: 08/22/11 7:26:00 magnesium 2011-0 No Brooks Noam 2 gm, 50 Memoria sulfate 3-03 [place] mL, Route: l 13:26: IVPB, Drug [place] 00 form: INJ, ONCE, Total dose = [...] 3-02 [place] tab, l 15:00: Route: PO, [place] 00 Drug form: TAB, Daily, Start date: 08/21/11 9:00:00, Stop date: 09/19/11 9:00:00 lisinopril 2012-0 No Brooks Noam 40 mg, 2 Memoria 3-02 [place] tab, l 15:00: Route: PO, [place] 00 Drug form: TAB, Daily, Start date: 08/21/11 9:00:00, Stop date: 09/19/11 9:00:00 lisinopril 2012-0 No Brooks Noam 40 mg, 2 Memoria 3-02 [place] tab, l 15:00: Route: PO, [place] 00 Drug form: TAB, Daily, Start date: [...] mL, Route: l 17:15: Ahmed IVP, Drug [place] 00 form: INJ, Q8H, PRN Nausea, Start [...] mL, Route: l 17:15: Ahmed IVP, Drug [place] 00 form: INJ, Q8H, PRN Nausea, Start [...] mL, Route: l 17:15: Ahmed IVP, Drug [place] 00 form: INJ, Q8H, PRN Nausea, Start date: 08/20/11 11:15:00, Duration: 30 day, Stop date: 09/19/11 11:14:00 insulin 2011-0 No Yury 10 unit, 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 3- [place] Route: l H 16:00: Rivero SUB-Q, Nidia nn 00 ONCE, Start date: 08/20/11 10:00:00, Stop date: 08/20/11 10:00:00 insulin 2011-0 No Yury 10 unit, 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 3- [place] Route: l H 16:00: Rivero SUB-Q, Nidia nn 00 ONCE, Start date: 08/20/11 10:00:00, Stop date: 08/20/11 10:00:00 insulin 2011-0 No Yury 10 unit, 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 3- [place] Route: l H 16:00: Rivero SUB-Q, Nidia nn 00 ONCE, Start date: 08/20/11 10:00:00, Stop date: 08/20/11 10:00:00 insulin 2011-0 No Yury 10 unit, 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 3- [place] Route: l H 16:00: Rivero SUB-Q, Nidia nn 00 ONCE, Start date: 08/20/11 10:00:00, Stop date: 08/20/11 10:00:00 insulin 2011-0 No Yury 10 unit, 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 3- [place] Route: l H 16:00: [...] 3-01 tab, PO, l tablet 15:37: Bedtime, [place] 27 90 tab, Substituti on Allowed, TAB [...] tab, PO, l tablet 15:35: BID, 60 [place] 25 tab, Substituti on Allowed, TAB Geodon [...] insulin No Yury 10 unit, 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 - [place] Route: l H 15:00: Rivero [...] 2011-0 No Yury 10 unit, 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 3-01 [place] Route: l H 15:00: Rivero [...] 2011-0 No Yury 10 unit, 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 - [place] Route: l H 15:00: Rivero [...] 2011-0 No Yury 10 unit, 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 3-01 [place] Route: l H 15:00: Rivero [...] 2011-0 No Yury 10 unit, 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 3- [place] Route: l H 15:00: Rivero SUB-Q, Nidia [...] 3:38:00, Stop date: 08/20/11 3:38:00 Insulin No Yury 6 unit, Mendoza janice regular 3-01 [place] 0.06 mL, l 09:38: Rivero Route: N[place] nn 00 SUB-Q, Drug form: SOLN, ONCE, Start date: 08/20/11 3:38:00, Stop date: 08/20/11 3:38:00 Insulin No Yury 6 unit, Mendoza janice regular 3-01 [place] 0.06 mL, l 09:38: Rivero Route: N[place] nn 00 SUB-Q, Drug form: SOLN, ONCE, Start date: 08/20/11 3:38:00, Stop date: 08/20/11 3:38:00 Insulin 2011- No Yury 6 unit, Mendoza janice regular 3-01 [place] 0.06 mL, l 09:38: Rivero Route: Nidia nn SUB-Q, Drug form: SOLN, ONCE, Start date: 08/20/11 3:38:00, Stop date: 08/20/11 3:38:00 Insulin No Yury 6 unit, Mendoza janice regular 3-01 [place] 0.06 mL, l 09:38: Rivero Route: N[place] nn 00 SUB-Q, Drug form: SOLN, ONCE, Start date: 08/20/11 3:38:00, Stop date: 08/20/11 3:38:00 Insulin No Didier Noam 10 unit, Memoria regular 3-01 [place] SUB-Q, l 09:28: BID, Vin 23 Substituti on Allowed Insulin 2012-0 No Brooks Noam 10 unit, Memoria regular - [place] SUB-Q, l 09:28: BID, [place] 23 Substituti on Allowed Insulin 0 No Brooks Noam 10 unit, Memoria regular - [place] SUB-Q, l 09:28: BID, [place] 23 Substituti on Allowed Insulin No Brooks Noam 10 unit, Memoria regular - [place] SUB-Q, l 09:28: BID, Vin 23 Substituti on Allowed Insulin No Brooks Noam 10 unit, Memoria regular - [place] SUB-Q, l 09:28: BID, Vin 23 Substituti on Allowed insulin No 10 unit, Memori a 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 3- SUB-Q, l H 09:26: BID, Vin 18 Substituti on Allowed insulin No 10 unit, Memori a 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 3- SUB-Q, l H 09:26: BID, Vin 18 Substituti on Allowed insulin No 10 unit, Memori a 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 - SUB-Q, l H 09:26: BID, [place] 18 Substituti on Allowed insulin No 10 unit, Memori a 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 3-01 SUB-Q, l H 09:26: BID, Vin 18 Substituti on Allowed insulin 0 No 10 unit, Memori a 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 3-01 SUB-Q, l H 09:26: BID, Vin 18 Substituti on Allowed NS 1,000 mL No Brooks Noam 1,000 mL, Memoria 08-19 [place] Rate: 150 l 09:06: ml/hr, [place] 00 Infuse over: 6.7 hr, Route: IV, [...] 3-01 [place] Rate: 150 l 09:06: ml/hr, [place] 00 Infuse over: 6.7 hr, Route: IV, [...] mL No Brooks Noam 1,000 mL, Memoria 3-01 [place] Rate: 150 l 09:06: ml/hr, [place] 00 Infuse over: 6.7 hr, Route: IV, [...] Stop date: 09/19/11 3:05:00 NS 1,000 mL 2011- No Didier Santacruz 1,000 mL, Memoria 3-01 [place] Rate: 150 [...] 2011-0 No Yury 18 unit, 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 3-01 [place] 0.18 mL, l H 08:58: Rivero Route: N[place] nn 00 SUB-Q, Drug form: INJ, Q12H, Start date: 08/20/11 2:58:00, Stop date: 09/18/11 21:00:00 insulin 2011-0 No Yury 18 unit, 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 3-01 [place] 0.18 mL, l H 08:58: Rivero Route: N[place] nn 00 SUB-Q, Drug form: INJ, Q12H, Start date: 08/20/11 2:58:00, Stop date: 09/18/11 21:00:00 insulin 2011-0 No Yury 18 unit, 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 3-01 [place] 0.18 mL, l H 08:58: Rivero Route: [place] nn 00 SUB-Q, Drug form: INJ, Q12H, Start date: 08/20/11 2:58:00, Stop date: 09/18/11 21:00:00 insulin 2012-0 No Yury 18 unit, 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 3-01 [place] 0.18 mL, l H 08:58: Rivero Route: N[place] nn 00 SUB-Q, Drug form: INJ, Q12H, Start date: 08/20/11 2:58:00, Stop date: 09/18/11 21:00:00 insulin 2011-0 No Yury 18 unit, 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 3- [place] 0.18 mL, l [...] 2011-0 No [facility]- [place] mL, Route: l [...] 30 day, Stop date: 09/19/11 3:45:00 Dextrose No Yury 25 gm, 50 M emoria 50% Syringe 08-19 [place] ml, Route: l 08:46: Rivero IVP, Drug He Form: INJ, PRN, PRN Blood Glucose Results, Start date: 08/20/11 2:46:00, Duration: 30 day, Stop date: 09/19/11 3:45:00 Dextrose No Yury 25 gm, 50 M [...] 50 M emoria 50% Syringe - [place] ml, Route: l 08:46: Rivero IVP, Drug He rmann 00 Form: INJ, PRN, PRN Blood Glucose Results, Start date: 08/20/11 2:46:00, Duration: 30 day, Stop date: 09/19/11 3:45:00 ondansetron 2011-0 No Hughes-Jason 4 mg, M emoria 08-19 [place] Route: l 07:42: [place] IVP, Drug Herm naeem 00 Pu form: INJ, ONCE, Priority: STAT, Start date: 08/20/11 1:42:00, Stop date: 08/20/11 1:42:00 ondansetron 2012-0 No Hughes-Jason 4 mg, M emoria 08-19 [place] Route: l 07:42: [place] IVP, Drug Herm naeem 00 Pu form: INJ, ONCE, Priority: STAT, Start date: 08/20/11 1:42:00, Stop date: 08/20/11 1:42:00 ondansetron 2011-0 No Hughes-Jason 4 mg, M emoria 08-19 [place] Route: l 07:42: [place] IVP, Drug Herm naeem 00 Pu form: INJ, ONCE, Priority: STAT, Start date: 08/20/11 1:42:00, Stop date: 08/20/11 1:42:00 ondansetron 2011-0 No Hughes-Jason 4 mg, M emoria 3-01 [place] Route: l 07:42: [place] IVP, Drug Herm naeem 00 Pu form: INJ, ONCE, Priority: STAT, Start date: 08/20/11 1:42:00, Stop date: 08/20/11 1:42:00 ondansetron 2011-0 No Hughes-Jason 4 mg, Deepali emoria 08-19 [place] Route: l 07:42: [place] IVP, Drug Herm naeem 00 Pu form: INJ, ONCE, Priority: STAT, Start date: 08/20/11 1:42:00, Stop date: 08/20/11 1:42:00 GI cocktail 0 No Hughes-Jason 30 ml, Memoria 08-19 [place] Route: PO, l 05:12: [place] Drug Form: Her braden 00 Pu SUSP, ONCE, STAT, Start date: 08/19/11 23:12:00, Stop date: 08/19/11 23:12:00 GI cocktail 0 No Hughes-Jason 30 ml, Memoria 08-19 [place] Route: PO, l 05:12: [place] Drug Form: Her braden 00 Pu SUSP, ONCE, STAT, Start date: 08/19/11 23:12:00, Stop date: 08/19/11 23:12:00 GI cocktail 0 No Hughes-Jason 30 ml, Memoria 08-19 [place] Route: PO, l 05:12: [place] Drug Form: Her braden 00 Pu SUSP, ONCE, STAT, Start date: 08/19/11 23:12:00, Stop date: 08/19/11 23:12:00 GI cocktail 0 No Hughes-Jason 30 ml, Memoria 08-19 [place] Route: PO, l 05:12: [place] Drug Form: Her braden 00 Pu SUSP, ONCE, STAT, Start date: 08/19/11 23:12:00, Stop date: 08/19/11 23:12:00 GI cocktail 2011-0 No Hughes-Jason 30 ml, Memoria 08-19 [place] Route: PO, l 05:12: [place] Drug Form: Her braden 00 Pu SUSP, ONCE, STAT, Start date: 08/19/11 23:12:00, Stop date: 08/19/11 23:12:00 ondansetron 2012-0 No Hughes-Jason 4 mg, M emoria 3- [place] Route: PO, l 05:10: [place] Drug form: Her braden 00 Pu TABDIS, ONCE, Priority: STAT, Start date: 08/19/11 23:10:00, Stop date: 08/19/11 23:10:00 Lactated 2011-0 No Hughes-Jason 1,000 mL, Memoria Ringers 3- [place] Rate: l (Bolus) IV 05:10: [place] 1,000 He rmann 1000 mL 00 Pu ml/hr, Infuse over: 1 hr, Route: IV, Total Volume: 1,000, [place] Dose, Priority: STAT, Start date: 08/19/11 23:10:00, Duration: 1 doses or times, Stop date: 08/20/11 0:09:00 ondansetron 2011-0 No Hughes-Jason 4 mg, M emoria 3- [place] Route: PO, l 05:10: [place] Drug form: Her braden 00 Pu TABDIS, ONCE, Priority: STAT, Start date: 08/19/11 23:10:00, Stop date: 08/19/11 23:10:00 Lactated 2011-0 No Hughes-Jason 1,000 mL, Memoria Ringers 3- [place] Rate: l (Bolus) IV 05:10: [place] 1,000 He rmann 1000 mL 00 Pu ml/hr, Infuse over: 1 hr, Route: IV, Total Volume: 1,000, Bolus Dose, Priority: STAT, Start date: 08/19/11 23:10:00, Duration: 1 doses or times, Stop date: 08/20/11 0:09:00 ondansetron 2012-0 No Hughes-Jason 4 mg, M emoria 3- [place] Route: PO, l 05:10: [place] Drug form: Her braden 00 Pu TABDIS, ONCE, Priority: STAT, Start date: 08/19/11 23:10:00, Stop date: 08/19/11 23:10:00 Lactated 2011-0 No Hughes-Jason 1,000 mL, Memoria Ringers 3- [place] Rate: l (Bolus) IV 05:10: [place] 1,000 He rmann 1000 mL 00 Pu ml/hr, Infuse over: 1 hr, Route: IV, Total Volume: 1,000, [place]us Dose, Priority: STAT, Start date: 08/19/11 23:10:00, Duration: 1 doses or times, Stop date: 08/20/11 0:09:00 ondansetron 2011-0 No Hughes-Jason 4 mg, M emoria 3- [place] Route: PO, l 05:10: Drug form: Her braden 00 Pu TABDIS, ONCE, Priority: STAT, Start date: 08/19/11 23:10:00, Stop date: 08/19/11 23:10:00 Lactated 2011-0 No Hughes-Jason 1,000 mL, Memoria Ringers 3- [place] Rate: l (Bolus) IV 05:10: 1,000 He rmann 1000 mL 00 Pu ml/hr, Infuse over: 1 hr, Route: IV, Total Volume: 1,000, Bolus Dose, Priority: STAT, Start date: 08/19/11 23:10:00, Duration: 1 doses or times, Stop date: 08/20/11 0:09:00 ondansetron 2011-0 No Hughes-Jason 4 mg, emoria 3 [place] Route: PO, l 05:10: Drug form: Her braden 00 Pu TABDIS, ONCE, Priority: STAT, Start date: 08/19/11 23:10:00, Stop date: 08/19/11 23:10:00 Lactated 2011-0 No Hughes-Jason 1,000 mL, Memoria Ringers - [place] Rate: l (Bolus) IV 05:10: 1,000 He rmann 1000 mL 00 Pu ml/hr, Infuse over: 1 hr, Route: IV, Total Volume: 1,000, Bolus Dose, Priority: STAT, Start date: 08/19/11 23:10:00, Duration: 1 doses or times, Stop date: 08/20/11 0:09:00 Insulin 2012-0 No Hughes-Jason 7 unit, Mem oria regular 3- [place] 0.07 mL, l 04:15: [place] Route: [place] 00 Pu SUB-Q, Drug form: SOLN, ONCE, Priority: STAT, Start date: 08/19/11 22:15:00, Stop date: 08/19/11 22:15:00 Insulin 2011-0 No Hughes-Jason 7 unit, Mem oria regular 3- [place] 0.07 mL, l 04:15: [place] Route: Vin Pu SUB-Q, Drug form: SOLN, ONCE, Priority: STAT, Start date: 08/19/11 22:15:00, Stop date: 08/19/11 22:15:00 Insulin 2011-0 No Hughes-Jason 7 unit, Mem oria regular 3- [place] 0.07 mL, l 04:15: [place] Route: [place] Pu SUB-Q, Drug form: SOLN, ONCE, Priority: STAT, Start date: 08/19/11 22:15:00, Stop date: 08/19/11 22:15:00 Insulin 2011-0 No Hughes-Jason 7 unit, Mem oria regular - [place] 0.07 mL, l 04:15: [place] Route: Vin Pu SUB-Q, Drug form: SOLN, ONCE, Priority: STAT, Start date: 08/19/11 22:15:00, Stop date: 08/19/11 22:15:00 Insulin 2011-0 No Hughes-Jason 7 unit, Mem oria regular - [place] 0.07 mL, l 04:15: [place] Route: [place] Pu SUB-Q, Drug form: SOLN, ONCE, Priority: [...] PO, l capsule 23:24: Rivero BID, 180 [place] 43 cap, Substituti on Allowed, CAP Geodon 60 No Yury 60 mg, 1 M emoria mg oral 2-29 [place] cap, PO, l capsule 23:24: Rivero BID, 180 [place] 43 cap, Substituti on Allowed, CAP Geodon 60 2012-0 No Yury 60 mg, 1 M emoria mg oral 2-29 [place] cap, PO, l capsule 23:24: Rivero BID, 180 [place] 43 cap, Substituti on Allowed, CAP Geodon 60 2011-0 No Yury 60 mg, 1 M emoria mg oral 2-29 [place] cap, PO, l capsule 23:24: Rivero BID, 180 Vin 43 cap, Substituti on Allowed, CAP trazodone 2011-0 No 300 mg, 1 Mem oria 300 mg oral 2-29 tab, PO, l tablet 23:23: Bedtime, [place] 58 15 tab, Substituti on Allowed, TAB trazodone 2011-0 No 300 mg, 1 Mem oria 300 mg oral 2-29 tab, PO, l tablet 23:23: Bedtime, [place] 58 15 tab, Substituti on Allowed, TAB [...] 2-29 tab, PO, l tablet 23:23: Bedtime, [place] 58 15 tab, Substituti on Allowed, TAB [...] PO, l capsule, 23:22: Rivero Daily, 30 [place] extended 24 cap, release Substituti on Allowed Effexor XR 2011-0 Yes Yury 75 mg, 1 Memoria 75 mg oral -29 [place] cap, PO, l capsule, 23:22: Rivero Daily, 30 Vin extended 24 cap, release Substituti on Allowed Effexor XR 2011-0 Yes Yury 75 mg, 1 Memoria 75 mg oral -29 [place] cap, PO, l capsule, 23:22: Rivero [...] 2011-0 No William 40 mg, Memor ia [place] Route: l 22:04: Pooja IVP, Drug Jake [...] 08/19/11 16:04:00, Stop date: 08/19/11 16:04:00 ondansetron 0 No William 8 mg, Mem oria - [...] Wong Route: IV, l 21:57: Pooja ONCE, [place] 00 Start date: 08/19/11 15:57:00, Stop date: [...] Wong Route: IV, l 21:57: Pooja ONCE, [place] 00 Start date: 08/19/11 15:57:00, Stop date: [...] Wong Route: IV, l 21:57: Pooja ONCE, [place] 00 Start date: 08/19/11 15:57:00, Stop date: [...] 2020-02-20 Completed [facility] Vaccine 00:00:00 [facility] Influenza Virus 2020-02-20 Completed [facility] Vaccine 00:00:00 [facility] TDAP (ADACEL) VACCINE 2019-07-25 Completed Uni versity of 00:00:00 [facility] Meningococcal B, OMV 2019-07-25 Completed Univ ersity of 00:00:00 [facility] Meningococcal 2019-07-25 Completed University of Polysaccharide 00:00:00 [facility] (groups A, C, Y and Branc h W-135) conjugate vaccine (MCV4P) TDAP (ADACEL) VACCINE 2019-07-25 Completed Uni versity of 00:00:00 [facility] Meningococcal B, OMV 2019-07-25 Completed Univ ersity of 00:00:00 [facility] Meningococcal 2019-07-25 Completed University of Polysaccharide 00:00:00 [facility] tawnya (groups A, C, Y and Branc h W-135) conjugate vaccine (MCV4P) Influenza Virus 2019-02-27 Completed [facility] of Vaccine Quad .5 mL IM 00:00:00 [facility] [place] [facility] Influenza Virus 2019-02-27 Completed [facility] of Vaccine Quad .5 mL IM 00:00:00 [facility] [place] [facility] hepatitis B vaccine 2018-04-07 Completed Memor ial [place] 00:00:00 hepatitis B vaccine 2018-04-07 Completed Memor ial [place] 00:00:00 hepatitis B vaccine 2018-04-07 Completed Memor ial [place] 00:00:00 hepatitis B vaccine 2018-04-07 Completed Memor ial Vin 00:00:00 hepatitis B vaccine 2018-04-07 Completed Memor ial Vin 00:00:00 influenza virus 2018-03-29 Completed Memorial Vin vaccine, inactivated 00:00:00 influenza virus 2018-03-29 Completed [facility] Vin vaccine, inactivated 00:00:00 influenza virus 2018-03-29 Completed [facility] [place] vaccine, inactivated 00:00:00 influenza virus 2018-03-29 Completed [facility] [place] vaccine, inactivated 00:00:00 influenza virus 2018-03-29 Completed [facility] [place] vaccine, inactivated 00:00:00 hepatitis B vaccine 2017-11-26 Completed Memor ial [place] 00:00:00 hepatitis B vaccine 2017-11-26 Completed Memor ial Vin 00:00:00 hepatitis B vaccine 2017-11-26 Completed Memor ial [place] 00:00:00 hepatitis B vaccine 2017-11-26 Completed Memor ial [place] 00:00:00 hepatitis B vaccine 2017-11-26 Completed Mem[facility] ial [place] 00:00:00 influenza virus 2017-10-25 Completed [facility] [place] vaccine, inactivated 00:00:00 pneumococcal 2017-10-25 Completed [facility] 23-valent vaccine 00:00:00 influenza virus 2017-10-25 Completed [facility] Vin vaccine, inactivated 00:00:00 pneumococcal 2017-10-25 Completed [facility] braden 23-valent vaccine 00:00:00 influenza virus 2017-10-25 Completed [facility] [place] vaccine, inactivated 00:00:00 pneumococcal 2017-10-25 Completed [facility] Her braden 23-valent vaccine 00:00:00 influenza virus 2017-10-25 Completed [facility] Vin vaccine, inactivated 00:00:00 pneumococcal 2017-10-25 Completed [facility] braden 23-valent vaccine 00:00:00 influenza virus 2017-10-25 Completed [facility] [place] vaccine, inactivated 00:00:00 pneumococcal 2017-10-25 Completed [facility] braden 23-valent vaccine 00:00:00 Influenza Virus 2017-06-22 [...] Systolic blood 2021-01-03 12:57:00 201 mm[Hg] [facility] pressure Diastolic blood 2021-01-03 12:57:00 104 mm[Hg] [facility] pressure Heart rate 2021-01-03 12:57:00 73 /min [facility] Body temperature 2021-01-03 12:57:00 36 Cathleen [facility] Body height 2021-01-03 12:57:[address] [facility] weight 2021-01-03 12:57:[address] [facility] BMI 2021-01-03 12:57:00 28.17 kg/m2 [facility] Systolic blood 2021-01-03 12:57:00 201 mm[Hg] [facility] pressure Diastolic blood 2021-01-03 12:57:00 104 [...] 16:33:00 171 mm[Hg] Univer sity of pressure [facility] Diastolic blood 2020-06-27 16:33:00 98 mm[Hg] Unive rsity of pressure [facility] Heart rate 2020-06-27 16:33:00 71 /min [facility] Respiratory rate 2020-06-27 16:29:00 19 /min Univ ersity of [facility] Body height 2020-06-27 16:29:00 154.9 cm [facility] Body weight 2020-06-27 16:29:00 77.293 kg [facility] BMI 2020-06-27 16:29:00 32.20 kg/m2 [facility] Oxygen saturation in 2020-06-27 16:29:00 99 /min University Arterial blood by [facility] Pulse oximetry Branch Systolic blood 2020-06-27 16:33:00 171 mm[Hg] Univer sity of pressure [facility] Diastolic blood 2020-06-27 16:33:00 98 mm[Hg] Unive rsity of pressure [facility] Heart rate 2020-06-27 16:33:00 71 /min [facility] Respiratory rate 2020-06-27 16:29:00 19 /min Univ ersity of [facility] Body height 2020-06-27 16:29:00 154.9 cm [facility] Body weight 2020-06-27 16:29:00 77.293 kg [facility] BMI 2020-06-27 16:29:00 32.20 kg/m2 [facility] Oxygen saturation in 2020-06-27 16:29:00 99 /min University of Arterial blood by [facility] Pulse oximetry Branch Height/Length 2021-07-08 11:50:13 154.9 cm Measured Weight Dosing 2021-07-08 11:50:13 85.00 kg Height/Length 2021-07-08 11:47:31 154.9 cm Measured Weight Dosing 2021-07-08 11:47:31 85.00 kg Height/Length 2021-07-08 11:47:20 154.9 cm Measured Weight Dosing 2021-07-08 11:47:20 85.00 kg Systolic blood 2021-07-08 19:43:00 189 mm[Hg] [facility] pressure Diastolic blood 2021-07-08 19:43:00 104 mm[Hg] [facility] pressure Heart rate 2021-07-08 18:56:00 74 /min [facility] Body temperature 2021-07-08 18:56:00 36.39 Cathleen [facility] Body height 2021-07-08 18:56:00 157.5 cm [facility] Body weight 2021-07-08 18:56:00 72.938 kg [facility] BMI 2021-07-08 18:56:00 29.41 kg/m2 [facility] Oxygen saturation in 2021-07-08 18:56:00 100 /min [facility] Arterial blood by Pulse oximetry Respiratory rate 2021-06-18 16:36:00 11 /min [facility] Systolic (mm Hg) 2021-01-29 20:03:00 Mendoza rial Vin Diastolic (mm Hg) 2021-01-29 20:03:00 Mem orial [place] Systolic (mm Hg) 2021-01-29 19:40:00 Mendoza rial Vin Diastolic (mm Hg) 2021-01-29 19:40:00 Mem orial Vin Systolic (mm Hg) 2021-01-29 18:05:00 Mendoza rial [place] Diastolic (mm Hg) 2021-01-29 18:05:00 Mem orial Ivn Respitory Rate 2021-01-29 16:55:00 Memori al [place] Temperature Oral (F) 2021-01-29 16:45:00 97.3 F [facility] [place] Respitory Rate 2021-01-29 16:45:00 Memori al Vin Respitory Rate 2021-01-29 16:30:00 Memori al Vin Temperature Oral (F) 2021-01-29 13:10:00 97.6 F [facility] [place] Systolic (mm Hg) 2021-01-27 05:00:00 Mendoza rial [place] Diastolic (mm Hg) 2021-01-27 05:00:00 Mem orial Vin Systolic (mm Hg) 2021-01-27 04:00:00 Mendoza rial Vin Diastolic (mm Hg) 2021-01-27 04:00:00 [facility] Systolic (mm Hg) 2021-01-27 03:00:00 [facility] Diastolic (mm Hg) 2021-01-27 03:00:00 [facility] [place] Respitory Rate 2021-01-26 19:00:00 [facility] [place] Respitory Rate 2021-01-26 18:00:00 [facility] [place] Respitory Rate 2021-01-26 17:00:00 [facility] Temperature Oral (F) 2021-01-22 13:00:00 97.6 F [facility] Height 2021-01-21 18:25:00 149.86 cm [facility] Weight 2021-01-21 18:25:00 [facility] [place] [facility] BMI Calculated 2021-01-21 18:25:00 [facility] [place] Height 2021-01-21 17:09:00 157.48 cm [facility] Height 2021-01-21 13:09:00 157.48 cm [facility] [...] Systolic (mm Hg) 2016-07-30 14:00:00 [facility] [place] Diastolic (mm Hg) 2016-07-30 14:00:00 [facility] [place] Respitory Rate 2016-07-30 14:00:00 [facility] [place] Heart Rate 2016-07-30 14:00:00 [facility] Temperature Oral (F) 2016-07-30 14:00:00 97.4 F [facility] Systolic (mm Hg) 2016-07-30 10:45:00 [facility] rial [facility] Diastolic (mm Hg) 2016-07-30 10:45:00 [facility] Heart Rate 2016-07-30 10:45:00 [facility] Temperature Oral (F) 2016-07-30 10:45:00 97.2 F [facility] Respitory Rate 2016-07-30 10:45:00 [facility] [place] [facility] Rate 2016-07-30 06:35:00 [facility] Temperature Oral (F) 2016-07-30 06:35:00 97.0 F [facility] Respitory Rate 2016-07-30 06:35:00 [facility] Systolic (mm Hg) 2016-07-30 06:35:00 [facility] Vin Diastolic (mm Hg) 2016-07-30 06:35:00 [facility] Weight 2016-07-24 02:13:00 [facility] BMI Calculated 2016-07-24 02:13:00 [facility] Height 2016-07-24 02:13:00 160.02 cm [facility] Respitory Rate 2016-06-15 15:00:00 [facility] Systolic (mm Hg) 2016-06-15 15:00:00 [facility] Vin Diastolic (mm Hg) 2016-06-15 15:00:00 [facility] Respitory Rate 2016-06-15 14:00:00 [facility] [place] Systolic (mm Hg) 2016-06-15 14:00:00 [facility] [place] Diastolic (mm Hg) 2016-06-15 14:00:00 [facility] [place] Respitory Rate 2016-06-15 13:29:00 [facility] [place] Systolic (mm Hg) 2016-06-15 13:29:00 [facility] Vin Diastolic (mm Hg) 2016-06-15 13:29:00 [facility] [place] Temperature Oral (F) 2016-06-14 10:56:00 97.1 F [facility] Temperature Oral (F) 2016-06-14 06:55:00 97.1 F [facility] Temperature Oral (F) 2016-06-12 10:00:00 96.8 F [facility] Weight 2016-06-11 04:25:00 [facility] Height 2016-06-11 04:25:00 160.02 cm [facility] BMI Calculated 2016-06-11 04:25:00 [facility] [place] [facility] Rate 2016-06-11 02:04:00 [facility] Heart Rate 2016-06-11 00:00:00 [facility] Heart Rate 2016-06-10 20:30:00 [facility] Weight 2016-06-10 16:04:00 [facility] BMI Calculated 2016-06-10 16:04:00 [facility] Height 2016-06-10 16:04:00 160.02 cm [facility] Temperature Oral (F) 2014-06-26 15:12:00 98.0 F [facility] Systolic (mm Hg) 2014-06-26 15:12:00 [facility] [place] Heart Rate 2014-06-26 15:12:00 [facility] Diastolic (mm Hg) 2014-06-26 15:12:00 [facility] Respitory Rate 2014-06-26 15:12:00 [facility] [place] Systolic (mm Hg) 2014-06-26 13:53:00 [facility] Diastolic (mm Hg) 2014-06-26 13:53:00 [facility] Respitory Rate 2014-06-26 13:53:00 [facility] Temperature Oral (F) 2014-06-26 13:53:00 98.0 F [facility] Temperature Oral (F) 2014-06-26 12:37:00 98.2 F [facility] Respitory Rate 2014-06-26 12:37:00 [facility] Systolic (mm Hg) 2014-06-26 12:37:00 [facility] [place] Diastolic (mm Hg) 2014-06-26 12:37:00 [facility] [place] Heart Rate 2014-06-26 09:21:00 [facility] Heart Rate 2014-06-26 06:08:00 [facility] Height 2014-06-26 05:35:00 154.94 cm [facility] Weight 2014-06-26 05:35:00 [facility] BMI Calculated 2014-06-26 05:35:00 [facility] Respitory Rate 2013-04-15 06:10:00 [facility] [place] Diastolic (mm Hg) 2013-04-15 06:10:00 [facility] [place] Heart Rate 2013-04-15 06:10:00 [facility] Systolic (mm Hg) 2013-04-15 06:10:00 [facility] [place] Temperature Oral (F) 2013-04-15 06:10:00 98.7 F [facility] Respitory Rate 2013-04-15 05:37:00 [facility] [place] Diastolic (mm Hg) 2013-04-15 05:37:00 [facility] Systolic (mm Hg) 2013-04-15 05:37:00 [facility] [place] Temperature Oral (F) 2013-04-15 05:37:00 98.2 F [facility] Heart Rate 2013-04-15 05:37:00 [facility] Height 2013-04-15 02:06:00 160.02 cm [facility] Weight 2013-04-15 02:06:00 [facility] Temperature Oral (F) 2013-04-15 02:06:00 98.6 F [facility] Respitory Rate 2013-04-15 02:06:00 [facility] Heart Rate 2013-04-15 02:06:00 [facility] Diastolic (mm Hg) 2013-04-15 02:06:00 [facility] [place] Systolic (mm Hg) 2013-04-15 02:06:00 [facility] Weight 2012-03-14 21:33:00 [facility] Systolic (mm Hg) 2011-12-01 00:33:00 [facility] [place] Respitory Rate 2011-12-01 00:33:00 [facility] Heart Rate 2011-12-01 00:33:00 [facility] Diastolic (mm Hg) 2011-12-01 00:33:00 [facility] [place] Temperature Oral (F) 2011-12-01 00:33:00 99.6 F [facility] Diastolic (mm Hg) 2011-11-30 21:00:00 [facility] [place] Heart Rate 2011-11-30 21:00:00 [facility] Respitory Rate 2011-11-30 21:00:00 [facility] [place] Systolic (mm Hg) 2011-11-30 21:00:00 [facility] Temperature Oral (F) 2011-11-30 21:00:00 99.8 F [facility] Respitory Rate 2011-11-30 16:30:00 [facility] [place] Systolic (mm Hg) 2011-11-30 16:30:00 [facility] Vin Diastolic (mm Hg) 2011-11-30 16:30:00 [facility] Heart Rate 2011-11-30 16:30:00 [facility] Temperature Oral (F) 2011-11-30 16:30:00 99.8 F [facility] Weight 2011-11-29 11:40:00 [facility] Height 2011-11-29 11:40:00 157.48 cm [facility] Weight 2011-11-28 17:16:00 [facility] Weight 2011-09-18 13:30:00 [facility] Height 2011-09-18 13:30:00 154.94 cm [facility] Heart Rate 2011-09-09 13:31:00 [facility] Systolic (mm Hg) 2011-09-09 13:02:00 [facility] [place] Diastolic (mm Hg) 2011-09-09 13:02:00 [facility] [place] Respitory Rate 2011-09-09 13:02:00 [facility] Temperature Oral (F) 2011-09-09 13:02:00 97.5 F [facility] Diastolic (mm Hg) 2011-09-09 08:00:00 [facility] [place] [facility] Rate 2011-09-09 08:00:00 [facility] Temperature Oral (F) 2011-09-09 08:00:00 98.6 F [facility] Respitory Rate 2011-09-09 08:00:00 [facility] [place] Systolic (mm Hg) 2011-09-09 08:00:00 [facility] [place] Respitory Rate 2011-09-09 04:55:00 [facility] [place] Diastolic (mm Hg) 2011-09-09 04:55:00 [facility] [place] Systolic (mm Hg) 2011-09-09 04:55:00 [facility] Heart Rate 2011-09-09 04:55:00 [facility] Temperature Oral (F) 2011-09-09 00:55:00 98.7 F [facility] Weight 2011-09-01 19:59:00 [facility] Height 2011-09-01 19:59:00 154.94 cm [facility] Height 2011-09-01 07:01:00 154.94 cm [facility] Weight 2011-09-01 07:01:00 [facility] Respitory Rate 2011-08-23 18:00:00 [facility] [place] [facility] Rate 2011-08-23 18:00:00 [facility] Systolic (mm Hg) 2011-08-23 18:00:00 [facility] [place] Diastolic (mm Hg) 2011-08-23 18:00:00 [facility] Temperature Oral (F) 2011-08-23 18:00:00 97.7 F [facility] Heart Rate 2011-08-23 14:24:00 [facility] Temperature Oral (F) 2011-08-23 14:24:00 98.2 F [facility] Diastolic (mm Hg) 2011-08-23 14:24:00 [facility] Systolic (mm Hg) 2011-08-23 14:24:00 [facility] [place] Respitory Rate 2011-08-23 14:24:00 [facility] [place] Systolic (mm Hg) 2011-08-23 11:15:00 [facility] [place] Diastolic (mm Hg) 2011-08-23 11:15:00 [facility] [place] Temperature Oral (F) 2011-08-23 11:00:00 98.3 F [facility] Heart Rate 2011-08-23 11:00:00 [facility] Respitory Rate 2011-08-22 22:00:00 [facility] [place] Height 2011-08-20 09:12:00 154.94 cm [facility] Weight 2011-08-20 09:12:00 [facility] Height 2011-08-19 20:28:00 154.94 cm [facility] Weight 2011-08-19 20:28:00 [facility] Procedures Procedure Date / Time Performing Clinician Source Performed POC GLUCOSE 2021-06-18 17:00:00 Aurelio Schumacher spital HEPATITIS B SURFACE 2021-06-18 14:07:00 Kenneth Bill [facility] ANTIGEN VANCOMYCIN LEVEL, RANDOM 2021-06-18 13:44:00 [facility] HC COMPLETE BLD COUNT 2021-06-18 13:44:00 [facility] W/AUTO DIFF BASIC METABOLIC PANEL 2021-06-18 11:27[facility] ESTIMATED GFR 2021-06-18 11:27:00 Aurelio Schumacher Ho spital POC GLUCOSE 2021-06-18 08:07:00 Aurelio Schumacher Ho spital HEMODIALYSIS 2021-06-18 06:16:53 Bill Cooper Ho spital POC GLUCOSE 2021-06-18 01:26:00 Aurelio Schumacher Ho spital POC GLUCOSE 2021-06-17 21:58:00 Aurelio Schumacher Ho spital HEMODIALYSIS 2021-06-17 18:25:45 Bill Cooper Ho spital POC GLUCOSE 2021-06-17 17:36:00 Aurelio Schumacher [facility] POC GLUCOSE 2021-06-17 13:51:00 Aurelio Schumacher Ho spital BASIC METABOLIC PANEL 2021-06-17 11:16:00 [facility] HC COMPLETE BLD COUNT 2021-06-17 11:16:00 [facility] W/AUTO DIFF ESTIMATED GFR 2021-06-17 11:16:00 [facility] POC GLUCOSE 2021-06-17 02:50:00 [facility] CONSULT TO OSTOMY CARE 2021-06-17 00:31:48 [facility] NURSE HC COMPLETE BLD COUNT 2021-06-16 23:31:00 [facility] W/AUTO DIFF BASIC METABOLIC PANEL 2021-06-16 23:31:00 [facility] ESTIMATED GFR 2021-06-16 23:31:00 [facility] POC GLUCOSE 2021-06-16 23:19:00 [facility] OR [place] < 1 HOUR 2021-06-16 22:49:00 Mando Diaz [facility] ANAEROBIC CULTURE 2021-06-16 22:36:00 [facility] FUNGUS C[facility] 2021-06-16 22:36:00 Mando Diaz [facility] AEROBIC CULTURE 2021-06-16 22:36:00 [facility] 2021-06-16 22:36:00 [facility] [place] [facility] E[place]IVE 2021-06-16 21:30:00 Jocelyne Zepeda [facility] SUPRAGLOTTIC AIRWAY AORTOGRAPHY, POSSIBLE 2021-06-16 21:17:00 Mando Diaz [facility] ANGIOPLASTY Diaz-Hsi POC , URINE 2021-06-16 20:46:00 [facility] POTASSIUM LEVEL 2021-06-16 17:28:00 Isabell Dickerson marilyn Romero POC GLUCOSE 2021-06-16 11:39:00 [facility] BASIC METABOLIC PANEL 2021-06-16 10:08:00 [facility]TE [facility] 2021-06-16 10:08:00 Wander [facility] W/AUTO DIFF PROTHROMBIN TIME WITH INR 2021-06-16 10:08:00 Char Viramontes [facility] PARTIAL THROMBOPLASTIN 2021-06-16 10:08:00 Char Viramontes [facility] TIME (PTT) TYPE AND SCREEN 2021-06-16 10:08:00 Char Viramontes ospital ESTIMATED GFR 2021-06-16 10:08:00 [facility] POC GLUCOSE 2021-06-16 01:59:00 [facility] POC GLUCOSE 2021-06-15 22:58:00 [facility] COVID-19 QUALITATIVE 2021-06-15 19:29:00 Char Viramontes [facility] RT-PCR POC GLUCOSE 2021-06-15 17:42:00 [facility] HEMODIALYSIS 2021-06-15 16:17:54 Delfino Akbar [facility] POC GLUCOSE 2021-06-15 15:41:00 [facility] POC GLUCOSE 2021-06-15 13:44:00 [facility] POC GLUCOSE 2021-06-15 13:00:00 [facility] ECG 12-LEAD 2021-06-15 12:48:21 Leni Barker spital HC COMPLETE BLD COUNT 2021-06-15 11:42:00 [facility] W/AUTO DIFF BASIC METABOLIC PANEL 2021-06-15 11:42:00 [facility] ESTIMATED GFR 2021-06-15 11:42:00 [facility] POC GLUCOSE 2021-06-15 01:31:00 [facility] US DUPLEX ARTERIAL LOWER 2021-06-14 21:55:33 [facility] EXTREMITY RIGHT POC GLUCOSE 2021-06-14 21:51:00 [facility] POC GLUCOSE 2021-06-14 17:36:00 [facility] POC GLUCOSE 2021-06-14 13:30:00 [facility] POC GLUCOSE 2021-06-14 13:29:00 [facility] HC COMPLETE BLD COUNT 2021-06-14 10:13:00 [facility] W/AUTO DIFF BASIC METABOLIC PANEL 2021-06-14 10:13:00 [facility] ESTIMATED GFR 2021-06-14 10:13:00 [facility] POC GLUCOSE 2021-06-14 02:45:00 [facility] POC GLUCOSE 2021-06-13 21:47:00 [facility] POC GLUCOSE 2021-06-13 20:46:00 [facility] CBC WITH PLATELET AND 2021-06-13 16:10:00 [facility] DIFFERENTIAL COMPREHENSIVE METABOLIC 2021-06-13 16:10:00 [facility] PANEL ESTIMATED GFR 2021-06-13 16:10:00 [facility] HEMODIALYSIS 2021-06-13 15:26:35 [facility] POC GLUCOSE 2021-06-13 14:30:00 [facility] VANCOMYCIN LEVEL, RANDOM 2021-06-13 10:59:00 Juwan You [facility] POC GLUCOSE 2021-06-13 10:40:00 [facility] POC GLUCOSE 2021-06-13 02:28:00 [facility] POC GLUCOSE 2021-06-13 00:16:00 [facility] POC GLUCOSE 2021-06-12 23:31:00 [facility] POC GLUCOSE 2021-06-12 23:14:00 [facility] POC GLUCOSE 2021-06-12 18:19:00 [facility] POC GLUCOSE 2021-06-12 14:37:00 [facility] POC GLUCOSE 2021-06-12 14:01:00 [facility] POC GLUCOSE 2021-06-12 03:03:[address] HEAD WO CONTRAST 2021-06-12 00:53:00 Holden Nagel [facility] POC GLUCOSE 2021-06-11 18:08:00 Holden Nagel POC GLUCOSE 2021-06-11 13:39:00 Holden Nagel [facility] [place] HEMODIALYSIS 2021-06-11 12:38:38 Delfino Akbar [facility] POC GLUCOSE 2021-06-11 02:01:00 Nagel, Holden [facility] [place] POC GLUCOSE 2021-06-10 22:15:00 Nagel, Holden [facility] [place] POC GLUCOSE 2021-06-10 17:39:00 Nagel, Holden [facility] [place] POC GLUCOSE 2021-06-10 16:05:00 Nagel, Holden Whyte Ho spital [place] TISSUE CULTURE 2021-06-10 15:08:00 Kenyatta, Juwan Ferrara spital GRAM STAIN 2021-06-10 15:08:00 Kenyatta, Juwancaron Whyte spital ANAEROBIC CULTURE 2021-06-10 15:04:00 Kenyatta, [facility] FUNGUS CULTURE 2021-06-10 15:04:00 Kenyatta, Juwan Whyte spital AEROBIC CULTURE 2021-06-10 15:04:00 Kenyatta, Juwancaron Whyte spital AF[employer] CULTURE 2021-06-10 15:04:00 Kenyatta, Juwan Whyte spital GRAM STAIN 2021-06-10 15:04:00 Kenyatta, Juwan Whyte spital [employer] STAIN 2021-06-10 15:04:00 Kenyatta, Juwancaron Whyte spital [place] AN ELECTIVE 2021-06-10 14:26:00 Sofi Roach spital SUPRAGLOTTIC AIRWAY Marquita INCISION AND DRAINAGE, 2021-06-10 14:26:00 , [facility] LOWER EXTREMITY HC COMPLETE BLD COUNT 2021-06-10 10:20:00 , [facility] W/AUTO DIFF BASIC METABOLIC PANEL 2021-06-10 10:20:00 , [facility] PROTHROMBIN TIME WITH INR 2021-06-10 10:20:00 [facility] PARTIAL THROMBOPLASTIN 2021-06-10 10:20:00 [facility] TIME (PTT) TYPE AND SCREEN 2021-06-10 10:20:00 Nagel, Holden Ferrara spital [place] ESTIMATED GFR 2021-06-10 10:20:00 Kenyatta Juwan Whyte Ho spital POC GLUCOSE 2021-06-10 03:11:00 Holden Nagel Ho spital [place] POC GLUCOSE 2021-06-10 01:30:00 Holden Nagel spital [place] POC GLUCOSE 2021-06-09 22:22:00 Holden Nagel spital [place] POC GLUCOSE 2021-06-09 13:55:00 NagelHolden rodriguez spital [place] HEMODIALYSIS 2021-06-09 13:20:01 [facility] VANCOMYCIN LEVEL, RANDOM 2021-06-09 11:46:00 [facility] POC GLUCOSE 2021-06-09 02:06:00 Holden Nagel spital [place] POC GLUCOSE 2021-06-08 22:23:00 Holden Nagel spital [place] POC GLUCOSE 2021-06-08 17:53:00 Holden Nagel spital [place] HC COMPLETE BLD COUNT 2021-06-08 16:06:00 [facility] W/AUTO DIFF POC GLUCOSE 2021-06-08 13:56:00 Holden Nagel spital [place] URINE CULTURE 2021-06-08 03:56:00 Holden Nagel spital [place] URINALYSIS SCREEN AND 2021-06-08 03:32:00 [facility] MICROSCOPY, WITH REFLEX TO CULTURE POC GLUCOSE 2021-06-08 01:15:00 Holden Nagel spital [place] POC GLUCOSE 2021-06-07 22:07:00 Holden Nagel spital [place] POC GLUCOSE 2021-06-07 18:01:00 Holden Nagel spital [place] BASIC METABOLIC PANEL 2021-06-07 14:15:00 [facility] ESTIMATED GFR 2021-06-07 14:15:00 Holden Nagel spital [place] POC GLUCOSE 2021-06-07 13:56:00 NagelHolden rodriguez [facility] [place] POC GLUCOSE 2021-06-07 02:54:00 RobeJinHoldentrip Whyte Ho spital [place] CT LOWER EXTREMITY W 2021-06-07 01:22:59 [facility] CONTRAST RIGHT POC GLUCOSE 2021-06-06 23:50:00 Robe Holdentrip Whyte Ho spital [place] POC GLUCOSE 2021-06-06 17:31:00 Robe Holdentrip Whyte Ho spital [place] HEMODIALYSIS 2021-06-06 15:05:52 Delfino Akbar [facility] POC GLUCOSE 2021-06-06 14:03:00 Holden Nagel Ho spital [place] HC COMPLETE BLD COUNT 2021-06-06 10:31:00 [facility] W/AUTO DIFF BASIC METABOLIC PANEL 2021-06-06 10:31:00 [facility] ESTIMATED GFR 2021-06-06 10:31:00 Holden Nagel Ho spital [place] POC GLUCOSE 2021-06-06 10:14:00 Robe Holdentrip Whyte Ho spital [place] POC GLUCOSE 2021-06-06 06:26:00 Robe Holden [facility] [place] POC GLUCOSE 2021-06-06 02:41:00 Robe Holden [facility] [place] POC GLUCOSE 2021-06-05 19:51:00 Robe Holden [facility] [place] BASIC METABOLIC PANEL 2021-06-05 18:06:00 [facility] HC COMPLETE BLD COUNT 2021-06-05 18:06:00 [facility] W/AUTO DIFF ESTIMATED GFR 2021-06-05 18:06:00 Holden Nagel Ho spital [place] POC GLUCOSE 2021-06-05 17:48:00 Holden Nagel spital [place] ANAEROBIC CULTURE 2021-06-05 17:10:00 Juwan You [facility] ANAEROBIC CULTURE 2021-06-05 16:59:[facility] 2021-06-05 16:59:00 Kenyatta Juwan [facility] sp[facility] AEROBIC CULTURE 2021-06-05 16:59:00 Kenyatta [facility] spital AFB CULTURE 2021-06-05 16:59:00 [facility]atta [facility] FUNGUS SMEAR 2021-06-05 16:59:00 Kenyatta, [facility] [employer] STAIN 2021-06-05 16:59:00 Kenyatta, [facility] spital [place] AN ELECTIVE 2021-06-05 16:52:08 Herrera [facility] SUPRAGLOTTIC AIRWAY TISSUE CULTURE 2021-06-05 16:50:00 Kenyatta [facility] [employer] GRAM STAIN 2021-06-05 16:50:00 Kenyatta Juwan [facility] spital DEBRIDEMENT, LOWER 2021-06-05 16:16:00 [facility] EXTREMITY POC GLUCOSE 2021-06-05 13:32:00 [facility] TROPONIN T 2021-06-05 10:58:00 [facility] ospital ABO AND RH CONFIRMATION BY 2021-06-05 10:54:00 Rachel Brasher [facility] PROTOCOL Vipin BASIC METABOLIC PANEL 2021-06-05 10:53:00 [facility] HC COMPLETE BLD COUNT 2021-06-05 10:53:00 [facility] W/AUTO DIFF ESTIMATED GFR 2021-06-05 10:53:00 Sivan Stewart [facility] PROTHROMBIN TIME WITH INR 2021-06-05 10:52:00 [facility] PARTIAL THROMBOPLASTIN 2021-06-05 10:52:00 [facility] TIME (PTT) HCG QUALITATIVE, SERUM 2021-06-05 10:52:00 Myron Fernandes Agustin [facility] SCREEN POC GLUCOSE 2021-06-05 09:40:00 Rachel Brasher [facility] spital Vipin BLOOD CULTURE, AEROBIC & 2021-06-05 08:27:00 Rachel Brasher [facility] ANAEROBIC Vipin POC GLUCOSE 2021-06-05 07:42:00 Rachel Brasher Ho spital [place] POC GLUCOSE 2021-06-05 06:57:00 Rachel Brasher Ho spital [place] POC GLUCOSE 2021-06-05 06:10:00 NagelHolden Ho spital [place] BLOOD CULTURE, AEROBIC & 2021-06-05 04:31:00 Rachel Brasher [facility] ANAEROBIC [place]ipin POC GLUCOSE 2021-06-05 04:04:00 Rachel Brasher Ho spital [place] POC GLUCOSE 2021-06-05 03:51:00 Rachel Brasher Ho spital [place] TYPE AND SCREEN 2021-06-05 03:40:00 Rachel Brasher Ho spital [place] POC GLUCOSE 2021-06-05 03:05:00 Rachel Brasher Ho spital [place] POC GLUCOSE 2021-06-05 02:23:00 Rachel Brasher Ho spital [place] COVID-19 QUALITATIVE 2021-06-05 02:08:00 Sivan Stewart [facility] RT-PCR HC COMPLETE BLD COUNT 2021-06-05 01:24:00 Sivan Stewart [facility] W/AUTO DIFF PROTHROMBIN TIME WITH INR 2021-06-05 01:24:00 Sivan Stewart [facility] PARTIAL THROMBOPLASTIN 2021-06-05 01:24:[address] [facility] TIME (PTT) COMPREHENSIVE METABOLIC 2021-06-05 01:24:00 SamantaSivan [facility] PANEL CREATINE KINASE, TOTAL 2021-06-05 01:24:[address] [facility] (CPK) B NATRIURETIC PEPTIDE 2021-06-05 01:24:00 Sivan Stewart [facility] TROPONIN T 2021-06-05 01:24:00 Char Viramontes H ospital ESTIMATED GFR 2021-06-05 01:24:00 Sivan Stewart [facility] ECG ED PRELIMINARY 2021-06-05 00:31:28 Sivan monge [facility] INTERPRETATION ECG 12-LEAD 2021-06-05 00:19:17 [facility] POC GLUCOSE 2021-05-25 18:04:00 Awe, Marilu Arvin [facility] POC GLUCOSE 2021-05-25 14:00:00 Awe, Marilu Arvin [facility] CBC HEMOGRAM 2021-05-25 10:12:00 [facility] BASIC METABOLIC PANEL 2021-05-25 10:12:00 Awe, [facility] ESTIMATED GFR 2021-05-25 10:12:00 Awe, Marilu Arvin [facility] POC GLUCOSE 2021-05-25 02:49:00 [facility] 2021-05-24 23:33:00 Awe, Marilu Arvin [facility] POC GLUCOSE 2021-05-24 17:56:00 Awe, Marilu Arvin [facility] POC GLUCOSE 2021-05-24 13:59:00 Awe, Marilu Arvin [facility] CBC HEMOGRAM 2021-05-24 10:12:00 [facility]OLIC PANEL 2021-05-24 10:12:00 Awe, [facility] ESTIMATED GFR 2021-05-24 10:12:00 [facility] POC GLUCOSE 2021-05-24 09:59:00 Awe, Marilu Arvin [facility] POC GLUCOSE 2021-05-24 02:26:00 Awe, Marilu Arvin [facility] POC GLUCOSE 2021-05-24 00:03:00 Awe, [facility] TRANSFUSE RED BLOOD CELLS 2021-05-23 22:30:00 [facility] TRANSFUSE RED BLOOD CELLS 2021-05-23 21:30:00 [facility] POC GLUCOSE 2021-05-23 19:03:00 Awe, [facility] TYPE AND SCREEN 2021-05-23 14:38:00 [facility] HC COMPLETE BLD COUNT 2021-05-23 14:38:00 [facility] W/AUTO DIFF PREPARE RBC 2021-05-23 14:38:00 [facility] ospital PREPARE PLATELET PHERESIS 2021-05-23 14:38:00 [facility] POC GLUCOSE 2021-05-23 14:35:00 Awe, [facility] HEMODIALYSIS 2021-05-23 13:42:30 [facility] CBC HEMOGRAM 2021-05-23 12:31:00 Awe, [facility] BASIC METABOLIC PANEL 2021-05-23 12:31:00 Awe, [facility] ESTIMATED GFR 2021-05-23 12:31:00 Awe, [facility] POC GLUCOSE 2021-05-23 11:22:00 Awe, [facility] POC GLUCOSE 2021-05-23 03:30:00 Awe, [facility] POC GLUCOSE 2021-05-22 23:20:00 Awe, [facility] POC GLUCOSE 2021-05-22 17:20:00 Awe, [facility] POC GLUCOSE 2021-05-22 13:27:00 Awe, [facility] BASIC METABOLIC PANEL 2021-05-22 12:31:00 [facility] MAGNESIUM LEVEL 2021-05-22 12:31:00 [facility] CBC HEMOGRAM 2021-05-22 12:31:00 Nikki Haynes ospital Ra[place] ESTIMATED GFR 2021-05-22 12:31:00 Nikki Haynes ospital [place] POC GLUCOSE 2021-05-22 10:54:00 Awe, [facility] POC GLUCOSE 2021-05-22 07:28:00 Awe, [facility] POC GLUCOSE 2021-05-22 01:11:00 Awe, [facility] HEPATITIS B SURFACE 2021-05-21 21:08:00 [facility] ANTIBODY HEMODIALYSIS 2021-05-21 20:57:40 [facility] POC GLUCOSE 2021-05-21 17:57:00 Awe, [facility] POC GLUCOSE 2021-05-21 13:55:00 Awe, [facility] POC GLUCOSE 2021-05-21 10:41:00 Tom BarberZCOCHRISTD-19 ANTI-SPIKE IGG 2021-05-21 07:43:[address] [facility] ANTIBODY TITER Esa BASIC METABOLIC PANEL 2021-05-21 07:43:00 Nikki Haynes [facility] Rahel MAGNESIUM LEVEL 2021-05-21 07:43:00 Nikki Haynes ospigabe Mcginnis [facility] HEMOGRAM 2021-05-21 07:43:00 Nikki Haynes [facility] [place] ZZCOVID-19 SEROLOGY 2021-05-21 07:43:00 Clyde Olmstead [facility] PATIENT SURVEILLANCE Esa ESTIMATED GFR 2021-05-21 07:43:00 Andre Sofia LACTIC ACID LEVEL 2021-05-21 07:43:00 Leodan Stevenson [facility] POC GLUCOSE 2021-05-21 06:35:00 Tom Barber HC COMPLETE BLD COUNT 2021-05-21 02:49:00 [facility] BASIC METABOLIC PANEL 2021-05-21 02:49:00 [facility] LACTIC ACID LEVEL 2021-05-21 02:49:00 [facility] OSMOLALITY, SERUM 2021-05-21 02:49:00 [facility] BETA HYDROXYBUTYRATE 2021-05-21 02:49:00 [facility] PROCALCITONIN 2021-05-21 02:49:00 [facility] ESTIMATED GFR 2021-05-21 02:49:00 [facility] POC GLUCOSE 2021-05-21 02:34:00 Tom Barber Ho spital HC COMPLETE BLD COUNT 2021-05-21 00:28:00 Char Viramontes [facility] W/AUTO DIFF POC GLUCOSE 2021-05-20 23:57:00 Tom Barber spital BASIC METABOLIC PANEL 2021-05-20 23:20:00 [facility] 2021-05-20 23:20:00 Kimberlyn [facility] [place] ESTIMATED GFR 2021-05-20 23:20:00 Andre Sofia spital Alloy VENOUS BLOOD GAS 2021-05-20 23:19:00 Andre Sofia [...] RED BLOOD CELLS 2021-05-20 17:21:[address] [facility] [place] [place] TRANSFUSE PLATELET 2021-05-20 15:52:00 [facility] BASIC METABOLIC PANEL 2021-05-20 15:25:00 [facility] [place] ESTIMATED GFR 2021-05-20 15:25:00 Andre Sofia spital [place] POC GLUCOSE 2021-05-20 14:48:00 Tom Barber spital HEMODIALYSIS 2021-05-20 11:31:20 [facility] POC GLUCOSE 2021-05-20 10:44:00 Tom Barber spital HEPATITIS B SURFACE 2021-05-20 08:49:00 [facility] ANTIGEN HEPATITIS B SURFACE AB, 2021-05-20 08:49:00 [facility] QUANTITATIVE HC COMPLETE BLD COUNT 2021-05-20 08:25:00 [facility] W/AUTO DIFF BASIC METABOLIC PANEL 2021-05-20 08:25:00 [facility] MAGNESIUM LEVEL 2021-05-20 08:25:00 [facility] ospital PHOSPHORUS LEVEL 2021-05-20 08:25:00 [facility] PROTHROMBIN TIME WITH INR 2021-05-20 08:25:00 Graham [facility] ESTIMATED GFR 2021-05-20 08:25:00 Juwan You spital HEMOGLOBIN A1C 2021-05-20 08:25:00 Nikki Haynes ospital Rahel POC GLUCOSE 2021-05-20 06:34:00 Tom Barber spital ARTERIAL BLOOD GAS 2021-05-20 04:36:00 Graham [facility] ECG 12-LEAD 2021-05-20 03:42:28 [facility] spital PROTHROMBIN TIME WITH INR 2021-05-20 02:54:00 [facility] HC COMPLETE BLD COUNT 2021-05-20 02:54:00 Graham [facility] W/AUTO DIFF BASIC METABOLIC PANEL 2021-05-20 02:54:[facility] 2021-05-20 02:54:00 Graham [facility] VENOUS BLOOD GAS 2021-05-20 02:54:00 [facility] ESTIMATED GFR 2021-05-20 02:54:00 [facility] spital POC GLUCOSE 2021-05-20 02:54:00 Tom Barbertal XR CHEST 1 VW PORTABLE 2021-05-20 02:51:13 [facility] [place] [facility] 2021-05-20 01:30:15 Juwan You spital TRANSFUSE RED BLOOD CELLS 2021-05-20 00:59:[address] [facility] [place] AN ELECTIVE 2021-05-20 00:53:01 Sukhjinder Medina spital SUPRAGLOTTIC AIRWAY [place] INCISION AND DRAINAGE, 2021-05-20 00:45:00 Juwan You [facility] HEMATOMA HC COMPLETE BLD COUNT 2021-05-19 22:13:00 [facility] W/AUTO DIFF BASIC METABOLIC PANEL 2021-05-19 22:13:00 [facility] PROTHROMBIN TIME WITH INR 2021-05-19 22:13:00 [facility] PARTIAL THROMBOPLASTIN 2021-05-19 22:13:00 [facility] TIME (PTT) MAGNESIUM LEVEL 2021-05-19 22:13:00 [facility] ESTIMATED GFR 2021-05-19 22:13:00 Juwan You spital POC GLUCOSE 2021-05-19 22:00:00 Errol Luther [facility] SURGICAL PATHOLOGY REQUEST 2021-05-19 21:47:00 Errol Luther [facility] POC GLUCOSE 2021-05-19 21:17:00 Juwan You spital ACTIVATED CLOTTING TIME 2021-05-19 19:12:00 [facility] [place] AN ELECTIVE 2021-05-19 18:11:04 Sukhjinder Medina spital SUPRAGLOTTIC AIRWAY [place] LOWER EXTREMITY 2021-05-19 17:59:00 Juwan You spital ANGIOGRAM,POSSIBLE ANGIOPLASTY,POSSIBLE STENT XR CHEST 1 VW PORTABLE 2021-05-19 15:47:37 Juwan You [facility] ESTIMATED GFR 2021-05-19 14:34:00 Juwan You spital POC PANEL 2021-05-19 14:34:00 Juwan You spital TYPE AND SCREEN 2021-05-19 14:05:00 [facility] RBC 2021-05-19 14:05:00 [facility] ospital PREPARE FRESH FROZEN 2021-05-19 14:05:00 [facility] PLASMA PREPARE PLATELET PHERESIS 2021-05-19 14:05:00 [facility] BASIC METABOLIC PANEL 2021-05-19 14:00:00 [facility] Larry Romero PROTHROMBIN TIME WITH INR 2021-05-19 14:00:[address] [facility] Larry Romero HC COMPLETE BLD COUNT 2021-05-19 14:00:00 [facility] W[facility]AUTO DIFF Larry Romero ABO AND RH CONFIRMATION BY 2021-05-19 14:00:00 Kenyatta [facility] PROTOCOL ESTIMATED GFR 2021-05-19 14:00:00 Isabell Dickerson marilyn Romero COVID-19 QUALITATIVE 2021-05-19 12:40:00 Juwan You [facility] RT-PCR MEDICAL RELEASE/CLEARANCE 2021-05-13 06:01:00 Doctor Unassigned, [facility] FOR[facility] US DUPLEX ARTERIAL LOWER 2021-05-12 15:21:31 Juwan You [facility] EXTREMITY BILATERAL Emergency department visit 2013-04-15 05:00:00 [facility] [place] for the evaluation and management of a patient, which requires these 3 kamara components within the constraints imposed by the urgency of the patient's clinical condition and/or mental status: A comprehensive history; A comprehensi Injection or Infusion of 2013-04-15 05:00:00 [facility] [place] Other Therapeutic or Prophylactic Substance Intravenous infusion, 2013-04-15 05:00:00 [facility]ori [facility] [place] hydration; each additional hour (List separately in addition to code for primary procedure) Therapeutic, prophylactic, 2013-04-15 05:00:00 [facility] [place] or diagnostic injection (specify substance or drug); each additional sequential intravenous push of a new substance/drug (List separately in addition to code for primary procedure) Therapeutic, prophylactic, 2013-04-15 05:00:00 [facility] [place] or diagnostic injection (specify substance or drug); intravenous push, single or initial substance/drug [facility] (esophagogastroduodenoscop y) gastric outlet reduction section [facility] Jake n Tubal ligation [facility] Insertion of prosthetic [facility] replacement for [facility]all Plan of Care Planned Activity Planned Date Details Comments Source Future Scheduled 2023-01-22 HEPATITIS B VACCINES [facility] Test 15:55:51 (1 of 3 - 3-dose series) [code = HEPATITIS B VACCINES (1 of 3 - 3-dose series)] Future Scheduled 2023-01-22 COVID-19 VACCINE (#1) [facility] Test 15:55:51 [code = COVID-19 VACCINE (#1)] Future Scheduled 2023-01-22 Pneumococcal Vaccine: [facility] Test 15:55:51 Pediatrics (0 to 5 Years) and At-Risk Patients (6 to 64 Years) (1 - PCV) [code = Pneumococcal Vaccine: Pediatrics (0 to 5 Years) and At-Risk Patients (6 to 64 Years) (1 - PCV)] Future Scheduled 2023-01-22 Hepatitis C screening [facility] Test 15:55:51 (procedure) [code = [id number]] Future Scheduled 2023-01-22 Screening for [facility] Test 15:55:51 malignant neoplasm of cervix (procedure) [code = [id number]] Future Scheduled 2023-01-22 BREAST CANCER [facility] Test 15:55:51 SCREENING [code = BREAST CANCER SCREENING] Future Scheduled 2023-01-22 INFLUENZA VACCINE [facility] Test 15:55:51 [code = INFLUENZA VACCINE] Future Scheduled 2023-01-22 HEPATITIS B VACCINES [facility] Test 15:55:51 (1 of 3 - 3-dose series) [code = HEPATITIS B VACCINES (1 of 3 - 3-dose series)] Future Scheduled 2023-01-22 COVID-19 VACCINE (#1) [facility] Test 15:55:51 [code = COVID-19 VACCINE (#1)] Future Scheduled 2023-01-22 Pneumococcal Vaccine: [facility] Test 15:55:51 Pediatrics (0 to 5 Years) and At-Risk Patients (6 to 64 Years) (1 - PCV) [code = Pneumococcal Vaccine: Pediatrics (0 to 5 Years) and At-Risk Patients (6 to 64 Years) (1 - PCV)] Future Scheduled 2023-01-22 Hepatitis C screening [facility] Test 15:55:51 (procedure) [code = [id number]] Future Scheduled 2023-01-22 Screening for [facility] Test 15:55:51 malignant neoplasm of cervix (procedure) [code = 850891452] Future Scheduled 2023-01-22 BREAST CANCER [facility] Test 15:55:51 SCREENING [code = BREAST CANCER SCREENING] Future Scheduled 2023-01-22 INFLUENZA VACCINE [facility] Test 15:55:51 [code = INFLUENZA VACCINE] Future Scheduled 2022-12-19 HEPATITIS B VACCINES [facility] Test 02:39:18 (1 of 3 - 3-dose series) [code = HEPATITIS B VACCINES (1 of 3 - 3-dose series)] Future Scheduled 2022-12-19 COVID-19 VACCINE (#1) [facility] Test 02:39:18 [code = COVID-19 VACCINE (#1)] Future Scheduled 2022-12-19 Pneumococcal Vaccine: [facility] Test 02:39:18 Pediatrics (0 to 5 Years) and At-Risk Patients (6 to 64 Years) (1 - PCV) [code = Pneumococcal Vaccine: Pediatrics (0 to 5 Years) and At-Risk Patients (6 to 64 Years) (1 - PCV)] Future Scheduled 2022-12-19 Hepatitis C screening [facility] Test 02:39:18 (procedure) [code = [id number]] Future Scheduled 2022-12-19 Screening for [facility] Test 02:39:18 malignant neoplasm of cervix (procedure) [code = 406685439] Future Scheduled 2022-12-19 BREAST CANCER [facility] Test 02:39:18 SCREENING [code = BREAST CANCER SCREENING] Future Scheduled 2022-12-19 INFLUENZA VACCINE [facility] Test 02:39:18 [code = INFLUENZA VACCINE] Future Scheduled 2022-12-19 HEPATITIS B VACCINES [facility] Test 02:39:18 (1 of 3 - 3-dose series) [code = HEPATITIS B VACCINES (1 of 3 - 3-dose series)] Future Scheduled 2022-12-19 COVID-19 VACCINE (#1) [facility] Test 02:39:18 [code = COVID-19 VACCINE (#1)] Future Scheduled 2022-12-19 Pneumococcal Vaccine: [facility] Test 02:39:18 Pediatrics (0 to 5 Years) and At-Risk Patients (6 to 64 Years) (1 - PCV) [code = Pneumococcal Vaccine: Pediatrics (0 to 5 Years) and At-Risk Patients (6 to 64 Years) (1 - PCV)] Future Scheduled 2022-12-19 Hepatitis C screening [facility] Test 02:39:18 (procedure) [code = [id number]] Future Scheduled 2022-12-19 Screening for [facility] Test 02:39:18 malignant neoplasm of cervix (procedure) [code = 787206370] Future Scheduled 2022-12-19 BREAST CANCER [facility] Test 02:39:18 SCREENING [code = BREAST CANCER SCREENING] Future Scheduled 2022-12-19 INFLUENZA VACCINE [facility] Test 02:39:18 [code = INFLUENZA VACCINE] Future Scheduled 2022-12-19 HEPATITIS B VACCINES [facility] Test 02:39:18 (1 of 3 - 3-dose series) [code = HEPATITIS B VACCINES (1 of 3 - 3-dose series)] Future Scheduled 2022-12-19 COVID-19 VACCINE (#1) [facility] Test 02:39:18 [code = COVID-19 VACCINE (#1)] Future Scheduled 2022-12-19 Pneumococcal Vaccine: [facility] Test 02:39:18 Pediatrics (0 to 5 Years) and At-Risk Patients (6 to 64 Years) (1 - PCV) [code = Pneumococcal Vaccine: Pediatrics (0 to 5 Years) and At-Risk Patients (6 to 64 Years) (1 - PCV)] Future Scheduled 2022-12-19 Hepatitis C screening [facility] Test 02:39:18 (procedure) [code = [id number]] Future Scheduled 2022-12-19 Screening for [facility] Test 02:39:18 malignant neoplasm of cervix (procedure) [code = 521732527] Future Scheduled 2022-12-19 BREAST CANCER [facility] Test 02:39:18 SCREENING [code = BREAST CANCER SCREENING] Future Scheduled 2022-12-19 INFLUENZA VACCINE [facility] Test 02:39:18 [code = INFLUENZA VACCINE] Future Scheduled 2022-12-19 HEPATITIS B VACCINES [facility] Test 02:39:18 (1 of 3 - 3-dose series) [code = HEPATITIS B VACCINES (1 of 3 - 3-dose series)] Future Scheduled 2022-12-19 COVID-19 VACCINE (#1) [facility] Test 02:39:18 [code = COVID-19 VACCINE (#1)] Future Scheduled 2022-12-19 Pneumococcal Vaccine: [facility] Test 02:39:18 Pediatrics (0 to 5 Years) and At-Risk Patients (6 to 64 Years) (1 - PCV) [code = Pneumococcal Vaccine: Pediatrics (0 to 5 Years) and At-Risk Patients (6 to 64 Years) (1 - PCV)] Future Scheduled 2022-12-19 Hepatitis C screening [facility] Test 02:39:18 (procedure) [code = 033295061] Future Scheduled 2022-12-19 Screening for [facility] Test 02:39:18 malignant neoplasm of cervix (procedure) [code = 700882058] Future Scheduled 2022-12-19 BREAST CANCER [facility] Test 02:39:18 SCREENING [code = BREAST CANCER SCREENING] Future Scheduled 2022-12-19 INFLUENZA VACCINE [facility] Test 02:39:18 [code = INFLUENZA VACCINE] Future Scheduled 2022-12-19 HEPATITIS B VACCINES [facility] Test 02:39:18 (1 of 3 - 3-dose series) [code = HEPATITIS B VACCINES (1 of 3 - 3-dose series)] Future Scheduled 2022-12-19 COVID-19 VACCINE (#1) [facility] Test 02:39:18 [code = COVID-19 VACCINE (#1)] Future Scheduled 2022-12-19 Pneumococcal Vaccine: [facility] Test 02:39:18 Pediatrics (0 to 5 Years) and At-Risk Patients (6 to 64 Years) (1 - PCV) [code = Pneumococcal Vaccine: Pediatrics (0 to 5 Years) and At-Risk Patients (6 to 64 Years) (1 - PCV)] Future Scheduled 2022-12-19 Hepatitis C screening [facility] Test 02:39:18 (procedure) [code = [id number]] Future Scheduled 2022-12-19 Screening for [facility] Test 02:39:18 malignant neoplasm of cervix (procedure) [code = 813306988] Future Scheduled 2022-12-19 BREAST CANCER [facility] Test 02:39:18 SCREENING [code = BREAST CANCER SCREENING] Future Scheduled 2022-12-19 INFLUENZA VACCINE Method [facility] Test 02:39:18 [code = INFLUENZA VACCINE] Future Scheduled 2022-12-10 HEPATITIS B VACCINES [facility] Test 14:28:00 (1 of 3 - 3-dose series) [code = HEPATITIS B VACCINES (1 of 3 - 3-dose series)] Future Scheduled 2022-12-10 COVID-19 VACCINE (#1) [facility] Test 14:28:00 [code = COVID-19 VACCINE (#1)] Future Scheduled 2022-12-10 Pneumococcal Vaccine: [facility] Test 14:28:00 Pediatrics (0 to 5 Years) and At-Risk Patients (6 to 64 Years) (1 - PCV) [code = Pneumococcal Vaccine: Pediatrics (0 to 5 Years) and At-Risk Patients (6 to 64 Years) (1 - PCV)] Future Scheduled 2022-12-10 Hepatitis C screening [facility] Test 14:28:00 (procedure) [code = 317086801] Future Scheduled 2022-12-10 Screening for [facility] Test 14:28:00 malignant neoplasm of cervix (procedure) [code = 650394942] Future Scheduled 2022-12-10 BREAST CANCER [facility] Test 14:28:00 SCREENING [code = BREAST CANCER SCREENING] Future Scheduled 2022-12-10 INFLUENZA VACCINE [facility] Test 14:28:00 [code = INFLUENZA VACCINE] Future Scheduled 2022-12-04 HEPATITIS B VACCINES [facility] Test 23:23:00 (1 of 3 - 3-dose series) [code = HEPATITIS B VACCINES (1 of 3 - 3-dose series)] Future Scheduled 2022-12-04 COVID-19 VACCINE (#1) [facility] Test 23:23:00 [code = COVID-19 VACCINE (#1)] Future Scheduled 2022-12-04 Pneumococcal Vaccine: [facility] Test 23:23:00 Pediatrics (0 to 5 Years) and At-Risk Patients (6 to 64 Years) (1 - PCV) [code = Pneumococcal Vaccine: Pediatrics (0 to 5 Years) and At-Risk Patients (6 to 64 Years) (1 - PCV)] Future Scheduled 2022-12-04 Hepatitis C screening [facility] Test 23:23:00 (procedure) [code = 672389132] Future Scheduled 2022-12-04 Screening for [facility] Test 23:23:00 malignant neoplasm of cervix (procedure) [code = 334832361] Future Scheduled 2022-12-04 BREAST CANCER [facility] Test 23:23:00 SCREENING [code = BREAST CANCER SCREENING] Future Scheduled 2022-12-04 INFLUENZA VACCINE Method [facility] Test 23:23:00 [code = INFLUENZA VACCINE] Future Scheduled 2022-12-04 HEPATITIS B VACCINES [facility] Test 23:23:00 (1 of 3 - 3-dose series) [code = HEPATITIS B VACCINES (1 of 3 - 3-dose series)] Future Scheduled 2022-12-04 COVID-19 VACCINE (#1) [facility] Test 23:23:00 [code = COVID-19 VACCINE (#1)] Future Scheduled 2022-12-04 Pneumococcal Vaccine: [facility] Test 23:23:00 Pediatrics (0 to 5 Years) and At-Risk Patients (6 to 64 Years) (1 - PCV) [code = Pneumococcal Vaccine: Pediatrics (0 to 5 Years) and At-Risk Patients (6 to 64 Years) (1 - PCV)] Future Scheduled 2022-12-04 Hepatitis C screening [facility] Test 23:23:00 (procedure) [code = 158200854] Future Scheduled 2022-12-04 Screening for [facility] Test 23:23:00 malignant neoplasm of cervix (procedure) [code = 112773113] Future Scheduled 2022-12-04 BREAST CANCER [facility] Test 23:23:00 SCREENING [code = BREAST CANCER SCREENING] Future Scheduled 2022-12-04 INFLUENZA VACCINE [facility] Test 23:23:00 [code = INFLUENZA VACCINE] Future Scheduled 2022-11-12 HEPATITIS B VACCINES [facility] Test 20:50:47 (1 of 3 - 3-dose series) [code = HEPATITIS B VACCINES (1 of 3 - 3-dose series)] Future Scheduled 2022-11-12 COVID-19 VACCINE (#1) [facility] Test 20:50:47 [code = COVID-19 VACCINE (#1)] Future Scheduled 2022-11-12 Pneumococcal Vaccine: [facility] Test 20:50:47 Pediatrics (0 to 5 Years) and At-Risk Patients (6 to 64 Years) (1 - PCV) [code = Pneumococcal Vaccine: Pediatrics (0 to 5 Years) and At-Risk Patients (6 to 64 Years) (1 - PCV)] Future Scheduled 2022-11-12 Hepatitis C screening [facility] Test 20:50:47 (procedure) [code = 786033325] Future Scheduled 2022-11-12 Screening for [facility] Test 20:50:47 malignant neoplasm of cervix (procedure) [code = 168017243] Future Scheduled 2022-11-12 BREAST CANCER [facility] Test 20:50:47 SCREENING [code = BREAST CANCER SCREENING] Future Scheduled 2022-11-12 INFLUENZA VACCINE Method [facility] Test 20:50:47 [code = INFLUENZA VACCINE] Future Scheduled 2022-11-12 HEPATITIS B VACCINES [facility] Test 20:50:47 (1 of 3 - 3-dose series) [code = HEPATITIS B VACCINES (1 of 3 - 3-dose series)] Future Scheduled 2022-11-12 COVID-19 VACCINE (#1) [facility] Test 20:50:47 [code = COVID-19 VACCINE (#1)] Future Scheduled 2022-11-12 Pneumococcal Vaccine: [facility] Test 20:50:47 Pediatrics (0 to 5 Years) and At-Risk Patients (6 to 64 Years) (1 - PCV) [code = Pneumococcal Vaccine: Pediatrics (0 to 5 Years) and At-Risk Patients (6 to 64 Years) (1 - PCV)] Future Scheduled 2022-11-12 Hepatitis C screening [facility] Test 20:50:47 (procedure) [code = 102208482] Future Scheduled 2022-11-12 Screening for [facility] Test 20:50:47 malignant neoplasm of cervix (procedure) [code = 194737065] Future Scheduled 2022-11-12 BREAST CANCER [facility] Test 20:50:47 SCREENING [code = BREAST CANCER SCREENING] Future Scheduled 2022-11-12 INFLUENZA VACCINE [facility] Test 20:50:47 [code = INFLUENZA VACCINE] Future Scheduled 2022-11-12 HEPATITIS B VACCINES [facility] Test 20:50:47 (1 of 3 - 3-dose series) [code = HEPATITIS B VACCINES (1 of 3 - 3-dose series)] Future Scheduled 2022-11-12 COVID-19 VACCINE (#1) [facility] Test 20:50:47 [code = COVID-19 VACCINE (#1)] Future Scheduled 2022-11-12 Pneumococcal Vaccine: [facility] Test 20:50:47 Pediatrics (0 to 5 Years) and At-Risk Patients (6 to 64 Years) (1 - PCV) [code = Pneumococcal Vaccine: Pediatrics (0 to 5 Years) and At-Risk Patients (6 to 64 Years) (1 - PCV)] Future Scheduled 2022-11-12 Hepatitis C screening [facility] Test 20:50:47 (procedure) [code = 829277370] Future Scheduled 2022-11-12 Screening for [facility] Test 20:50:47 malignant neoplasm of cervix (procedure) [code = 193785926] Future Scheduled 2022-11-12 BREAST CANCER [facility] Test 20:50:47 SCREENING [code = BREAST CANCER SCREENING] Future Scheduled 2022-11-12 INFLUENZA VACCINE [facility] Test 20:50:47 [code = INFLUENZA VACCINE] Future Scheduled 2022-10-23 HEPATITIS B VACCINES [facility] Test 05:16:19 (1 of 3 - 3-dose series) [code = HEPATITIS B VACCINES (1 of 3 - 3-dose series)] Future Scheduled 2022-10-23 COVID-19 VACCINE (#1) [facility] Test 05:16:19 [code = COVID-19 VACCINE (#1)] Future Scheduled 2022-10-23 Pneumococcal Vaccine: [facility] Test 05:16:19 Pediatrics (0 to 5 Years) and At-Risk Patients (6 to 64 Years) (1 - PCV) [code = Pneumococcal Vaccine: Pediatrics (0 to 5 Years) and At-Risk Patients (6 to 64 Years) (1 - PCV)] Future Scheduled 2022-10-23 Hepatitis C screening [facility] Test 05:16:19 (procedure) [code = 956061440] Future Scheduled 2022-10-23 Screening for [facility] Test 05:16:19 malignant neoplasm of cervix (procedure) [code = 259669681] Future Scheduled 2022-10-23 BREAST CANCER [facility] Test 05:16:19 SCREENING [code = BREAST CANCER SCREENING] Future Scheduled 2022-10-23 INFLUENZA VACCINE [facility] Test 05:16:19 [code = INFLUENZA VACCINE] Future Scheduled 2022-06-11 HEPATITIS B VACCINES [facility] Test 02:09:30 (1 of 3 - 3-dose series) [code = HEPATITIS B VACCINES (1 of 3 - 3-dose series)] Future Scheduled 2022-06-11 COVID-19 VACCINE (#1) [facility] Test 02:09:30 [code = COVID-19 VACCINE (#1)] Future Scheduled 2022-06-11 Pneumococcal Vaccine: [facility] Test 02:09:30 Pediatrics (0 to 5 Years) and At-Risk Patients (6 to 64 Years) (1 - PCV) [code = Pneumococcal Vaccine: Pediatrics (0 to 5 Years) and At-Risk Patients (6 to 64 Years) (1 - PCV)] Future Scheduled 2022-06-11 Hepatitis C screening [facility] Test 02:09:30 (procedure) [code = 860397175] Future Scheduled 2022-06-11 Screening for [facility] Test 02:09:30 malignant neoplasm of cervix (procedure) [code = [id number]] Future Scheduled 2022-06-11 INFLUENZA VACCINE Method [facility] Test 02:09:30 [code = INFLUENZA VACCINE] Future Scheduled 2022-06-11 HEPATITIS B VACCINES Met [facility] Test 02:09:30 (1 of 3 - 3-dose series) [code = HEPATITIS B VACCINES (1 of 3 - 3-dose series)] Future Scheduled 2022-06-11 COVID-19 VACCINE (#1) [facility] Test 02:09:30 [code = COVID-19 VACCINE (#1)] Future Scheduled 2022-06-11 Pneumococcal Vaccine: [facility] Test 02:09:30 Pediatrics (0 to 5 Years) and At-Risk Patients (6 to 64 Years) (1 - PCV) [code = Pneumococcal Vaccine: Pediatrics (0 to 5 Years) and At-Risk Patients (6 to 64 Years) (1 - PCV)] Future Scheduled 2022-06-11 Hepatitis C screening [facility] Test 02:09:30 (procedure) [code = [id number]] Future Scheduled 2022-06-11 Screening for [facility] Test 02:09:30 malignant neoplasm of cervix (procedure) [code = 302833081] Future Scheduled 2022-06-11 INFLUENZA VACCINE Method [facility] Test 02:09:30 [code = INFLUENZA VACCINE] Future Scheduled 2022-06-11 HEPATITIS B VACCINES Met [facility] Test 02:09:30 (1 of 3 - 3-dose series) [code = HEPATITIS B VACCINES (1 of 3 - 3-dose series)] Future Scheduled 2022-06-11 COVID-19 VACCINE (#1) [facility] Test 02:09:30 [code = COVID-19 VACCINE (#1)] Future Scheduled 2022-06-11 Pneumococcal Vaccine: [facility] Test 02:09:30 Pediatrics (0 to 5 Years) and At-Risk Patients (6 to 64 Years) (1 - PCV) [code = Pneumococcal Vaccine: Pediatrics (0 to 5 Years) and At-Risk Patients (6 to 64 Years) (1 - PCV)] Future Scheduled 2022-06-11 Hepatitis C screening [facility] Test 02:09:30 (procedure) [code = 678875760] Future Scheduled 2022-06-11 Screening for [facility] Test 02:09:30 malignant neoplasm of cervix (procedure) [code = 373396935] Future Scheduled 2022-06-11 INFLUENZA VACCINE Method [facility] Test 02:09:30 [code = INFLUENZA VACCINE] Future Scheduled 2022-06-11 HEPATITIS B VACCINES Met [facility] Test 02:09:30 (1 of 3 - 3-dose series) [code = HEPATITIS B VACCINES (1 of 3 - 3-dose series)] Future Scheduled 2022-06-11 COVID-19 VACCINE (#1) [facility] Test 02:09:30 [code = COVID-19 VACCINE (#1)] Future Scheduled 2022-06-11 Pneumococcal Vaccine: [facility] Test 02:09:30 Pediatrics (0 to 5 Years) and At-Risk Patients (6 to 64 Years) (1 - PCV) [code = Pneumococcal Vaccine: Pediatrics (0 to 5 Years) and At-Risk Patients (6 to 64 Years) (1 - PCV)] Future Scheduled 2022-06-11 Hepatitis C screening [facility] Test 02:09:30 (procedure) [code = 981862626] Future Scheduled 2022-06-11 Screening for [facility] Test 02:09:30 malignant neoplasm of cervix (procedure) [code = 567043109] Future Scheduled 2022-06-11 INFLUENZA VACCINE Method [facility] Test 02:09:30 [code = INFLUENZA VACCINE] Future Scheduled 2022-06-11 HEPATITIS B VACCINES Met [facility] Test 02:09:30 (1 of 3 - 3-dose series) [code = HEPATITIS B VACCINES (1 of 3 - 3-dose series)] Future Scheduled 2022-06-11 COVID-19 VACCINE (#1) [facility] Test 02:09:30 [code = COVID-19 VACCINE (#1)] Future Scheduled 2022-06-11 Pneumococcal Vaccine: [facility] Test 02:09:30 Pediatrics (0 to 5 Years) and At-Risk Patients (6 to 64 Years) (1 - PCV) [code = Pneumococcal Vaccine: Pediatrics (0 to 5 Years) and At-Risk Patients (6 to 64 Years) (1 - PCV)] Future Scheduled 2022-06-11 Hepatitis C screening [facility] Test 02:09:30 (procedure) [code = 233616553] Future Scheduled 2022-06-11 Screening for [facility] Test 02:09:30 malignant neoplasm of cervix (procedure) [code = 728025694] Future Scheduled 2022-06-11 INFLUENZA VACCINE Method [facility] Test 02:09:30 [code = INFLUENZA VACCINE] Future Scheduled 2022-06-11 HEPATITIS B VACCINES [facility] Test 02:09:30 (1 of 3 - 3-dose series) [code = HEPATITIS B VACCINES (1 of 3 - 3-dose series)] Future Scheduled 2022-06-11 COVID-19 VACCINE (#1) [facility] Test 02:09:30 [code = COVID-19 VACCINE (#1)] Future Scheduled 2022-06-11 Pneumococcal Vaccine: [facility] Test 02:09:30 Pediatrics (0 to 5 Years) and At-Risk Patients (6 to 64 Years) (1 - PCV) [code = Pneumococcal Vaccine: Pediatrics (0 to 5 Years) and At-Risk Patients (6 to 64 Years) (1 - PCV)] Future Scheduled 2022-06-11 Hepatitis C screening [facility] Test 02:09:30 (procedure) [code = 892969107] Future Scheduled 2022-06-11 Screening for [facility] Test 02:09:30 malignant neoplasm of cervix (procedure) [code = 870396044] Future Scheduled 2022-06-11 INFLUENZA VACCINE Method [facility] Test 02:09:30 [code = INFLUENZA VACCINE] Future Scheduled 2022-06-11 HEPATITIS B VACCINES [facility] Test 02:09:30 (1 of 3 - 3-dose series) [code = HEPATITIS B VACCINES (1 of 3 - 3-dose series)] Future Scheduled 2022-06-11 COVID-19 VACCINE (#1) [facility] Test 02:09:30 [code = COVID-19 VACCINE (#1)] Future Scheduled 2022-06-11 Pneumococcal Vaccine: [facility] Test 02:09:30 Pediatrics (0 to 5 Years) and At-Risk Patients (6 to 64 Years) (1 - PCV) [code = Pneumococcal Vaccine: Pediatrics (0 to 5 Years) and At-Risk Patients (6 to 64 Years) (1 - PCV)] Future Scheduled 2022-06-11 Hepatitis C screening [facility] Test 02:09:30 (procedure) [code = 466340368] Future Scheduled 2022-06-11 Screening for [facility] Test 02:09:30 malignant neoplasm of cervix (procedure) [code = 474354650] Future Scheduled 2022-06-11 INFLUENZA VACCINE Method [facility] Test 02:09:30 [code = INFLUENZA VACCINE] Future Scheduled 2022-06-01 HEPATITIS B VACCINES Met [facility] Test 16:17:59 (1 of 3 - 3-dose series) [code = HEPATITIS B VACCINES (1 of 3 - 3-dose series)] Future Scheduled 2022-06-01 COVID-19 VACCINE (#1) [facility] Test 16:17:59 [code = COVID-19 VACCINE (#1)] Future Scheduled 2022-06-01 Pneumococcal Vaccine: [facility] Test 16:17:59 Pediatrics (0 to 5 Years) and At-Risk Patients (6 to 64 Years) (1 - PCV) [code = Pneumococcal Vaccine: Pediatrics (0 to 5 Years) and At-Risk Patients (6 to 64 Years) (1 - PCV)] Future Scheduled 2022-06-01 Hepatitis C screening [facility] Test 16:17:59 (procedure) [code = 277496500] Future Scheduled 2022-06-01 Screening for [facility] Test 16:17:59 malignant neoplasm of cervix (procedure) [code = 268356051] Future Scheduled 2022-06-01 INFLUENZA VACCINE Method [facility] Test 16:17:59 [code = INFLUENZA VACCINE] Future Scheduled 2022-04-25 HEPATITIS B VACCINES [facility] Test 12:43:16 (1 of 3 - 3-dose series) [code = HEPATITIS B VACCINES (1 of 3 - 3-dose series)] Future Scheduled 2022-04-25 COVID-19 VACCINE (#1) [facility] Test 12:43:16 [code = COVID-19 VACCINE (#1)] Future Scheduled 2022-04-25 Pneumococcal Vaccine: [facility] Test 12:43:16 Pediatrics (0 to 5 Years) and At-Risk Patients (6 to 64 Years) (1 - PCV) [code = Pneumococcal Vaccine: Pediatrics (0 to 5 Years) and At-Risk Patients (6 to 64 Years) (1 - PCV)] Future Scheduled 2022-04-25 Hepatitis C screening [facility] Test 12:43:16 (procedure) [code = 207780015] Future Scheduled 2022-04-25 Screening for [facility] Test 12:43:16 malignant neoplasm of cervix (procedure) [code = 245259310] Future Scheduled 2022-04-25 INFLUENZA VACCINE Method [facility] Test 12:43:16 [code = INFLUENZA VACCINE] Future Scheduled 2022-02-27 HEPATITIS B VACCINES [facility] Test 05:24:42 (1 of 3 - 3-dose series) [code = HEPATITIS B VACCINES (1 of 3 - 3-dose series)] Future Scheduled 2022-02-27 COVID-19 VACCINE (#1) [facility] Test 05:24:42 [code = COVID-19 VACCINE (#1)] Future Scheduled 2022-02-27 Pneumococcal Vaccine: [facility] Test 05:24:42 Pediatrics (0 to 5 Years) and At-Risk Patients (6 to 64 Years) (1 - PCV) [code = Pneumococcal Vaccine: Pediatrics (0 to 5 Years) and At-Risk Patients (6 to 64 Years) (1 - PCV)] Future Scheduled 2022-02-27 Hepatitis C screening [facility] Test 05:24:42 (procedure) [code = 102529712] Future Scheduled 2022-02-27 Screening for [facility] Test 05:24:42 malignant neoplasm of cervix (procedure) [code = 995761868] Future Scheduled 2022-02-27 INFLUENZA VACCINE Method [facility] Test 05:24:42 [code = INFLUENZA VACCINE] Future Scheduled 2022-02-27 HEPATITIS B VACCINES [facility] Test 05:24:42 (1 of 3 - 3-dose series) [code = HEPATITIS B VACCINES (1 of 3 - 3-dose series)] Future Scheduled 2022-02-27 COVID-19 VACCINE (#1) [facility] Test 05:24:42 [code = COVID-19 VACCINE (#1)] Future Scheduled 2022-02-27 Pneumococcal Vaccine: [facility] Test 05:24:42 Pediatrics (0 to 5 Years) and At-Risk Patients (6 to 64 Years) (1 - PCV) [code = Pneumococcal Vaccine: Pediatrics (0 to 5 Years) and At-Risk Patients (6 to 64 Years) (1 - PCV)] Future Scheduled 2022-02-27 Hepatitis C screening [facility] Test 05:24:42 (procedure) [code = 039803378] Future Scheduled 2022-02-27 Screening for [facility] Test 05:24:42 malignant neoplasm of cervix (procedure) [code = 075390996] Future Scheduled 2022-02-27 INFLUENZA VACCINE Method [facility] Test 05:24:42 [code = INFLUENZA VACCINE] Future Scheduled 2022-02-27 HEPATITIS B VACCINES [facility] Test 05:24:42 (1 of 3 - 3-dose series) [code = HEPATITIS B VACCINES (1 of 3 - 3-dose series)] Future Scheduled 2022-02-27 COVID-19 VACCINE (#1) [facility] Test 05:24:42 [code = COVID-19 VACCINE (#1)] Future Scheduled 2022-02-27 Pneumococcal Vaccine: [facility] Test 05:24:42 Pediatrics (0 to 5 Years) and At-Risk Patients (6 to 64 Years) (1 - PCV) [code = Pneumococcal Vaccine: Pediatrics (0 to 5 Years) and At-Risk Patients (6 to 64 Years) (1 - PCV)] Future Scheduled 2022-02-27 Hepatitis C screening [facility] Test 05:24:42 (procedure) [code = 231300805] Future Scheduled 2022-02-27 Screening for [facility] Test 05:24:42 malignant neoplasm of cervix (procedure) [code = 164753194] Future Scheduled 2022-02-27 INFLUENZA VACCINE Method [facility] Test 05:24:42 [code = INFLUENZA VACCINE] Future Scheduled 2022-02-27 HEPATITIS B VACCINES [facility] Test 05:24:42 (1 of 3 - 3-dose series) [code = HEPATITIS B VACCINES (1 of 3 - 3-dose series)] Future Scheduled 2022-02-27 COVID-19 VACCINE (#1) [facility] Test 05:24:42 [code = COVID-19 VACCINE (#1)] Future Scheduled 2022-02-27 Pneumococcal Vaccine: [facility] Test 05:24:42 Pediatrics (0 to 5 Years) and At-Risk Patients (6 to 64 Years) (1 - PCV) [code = Pneumococcal Vaccine: Pediatrics (0 to 5 Years) and At-Risk Patients (6 to 64 Years) (1 - PCV)] Future Scheduled 2022-02-27 Hepatitis C screening [facility] Test 05:24:42 (procedure) [code = 196037803] Future Scheduled 2022-02-27 Screening for [facility] Test 05:24:42 malignant neoplasm of cervix (procedure) [code = 460216340] Future Scheduled 2022-02-27 INFLUENZA VACCINE Method [facility] Test 05:24:42 [code = INFLUENZA VACCINE] Future Scheduled 2022-02-27 HEPATITIS B VACCINES [facility] Test 05:24:42 (1 of 3 - 3-dose series) [code = HEPATITIS B VACCINES (1 of 3 - 3-dose series)] Future Scheduled 2022-02-27 COVID-19 VACCINE (#1) [facility] Test 05:24:42 [code = COVID-19 VACCINE (#1)] Future Scheduled 2022-02-27 Pneumococcal Vaccine: [facility] Test 05:24:42 Pediatrics (0 to 5 Years) and At-Risk Patients (6 to 64 Years) (1 - PCV) [code = Pneumococcal Vaccine: Pediatrics (0 to 5 Years) and At-Risk Patients (6 to 64 Years) (1 - PCV)] Future Scheduled 2022-02-27 Hepatitis C screening [facility] Test 05:24:42 (procedure) [code = 497642493] Future Scheduled 2022-02-27 Screening for [facility] Test 05:24:42 malignant neoplasm of cervix (procedure) [code = 257041375] Future Scheduled 2022-02-27 INFLUENZA VACCINE Method [facility] Test 05:24:42 [code = INFLUENZA VACCINE] Future Scheduled 2022-02-27 HEPATITIS B VACCINES [facility] Test 05:24:42 (1 of 3 - 3-dose series) [code = HEPATITIS B VACCINES (1 of 3 - 3-dose series)] Future Scheduled 2022-02-27 COVID-19 VACCINE (#1) [facility] Test 05:24:42 [code = COVID-19 VACCINE (#1)] Future Scheduled 2022-02-27 Pneumococcal Vaccine: [facility] Test 05:24:42 Pediatrics (0 to 5 Years) and At-Risk Patients (6 to 64 Years) (1 - PCV) [code = Pneumococcal Vaccine: Pediatrics (0 to 5 Years) and At-Risk Patients (6 to 64 Years) (1 - PCV)] Future Scheduled 2022-02-27 Hepatitis C screening [facility] Test 05:24:42 (procedure) [code = 952478119] Future Scheduled 2022-02-27 Screening for [facility] Test 05:24:42 malignant neoplasm of cervix (procedure) [code = 405521545] Future Scheduled 2022-02-27 INFLUENZA VACCINE Method [facility] Test 05:24:42 [code = INFLUENZA VACCINE] Future Scheduled 2022-02-27 HEPATITIS B VACCINES [facility] Test 05:24:42 (1 of 3 - 3-dose series) [code = HEPATITIS B VACCINES (1 of 3 - 3-dose series)] Future Scheduled 2022-02-27 COVID-19 VACCINE (#1) [facility] Test 05:24:42 [code = COVID-19 VACCINE (#1)] Future Scheduled 2022-02-27 Pneumococcal Vaccine: [facility] Test 05:24:42 Pediatrics (0 to 5 Years) and At-Risk Patients (6 to 64 Years) (1 - PCV) [code = Pneumococcal Vaccine: Pediatrics (0 to 5 Years) and At-Risk Patients (6 to 64 Years) (1 - PCV)] Future Scheduled 2022-02-27 Hepatitis C screening [facility] Test 05:24:42 (procedure) [code = 796653945] Future Scheduled 2022-02-27 Screening for [facility] Test 05:24:42 malignant neoplasm of cervix (procedure) [code = 758156504] Future Scheduled 2022-02-27 INFLUENZA VACCINE Method [facility] Test 05:24:42 [code = INFLUENZA VACCINE] Future Scheduled 2022-02-27 HEPATITIS B VACCINES [facility] Test 05:24:42 (1 of 3 - 3-dose series) [code = HEPATITIS B VACCINES (1 of 3 - 3-dose series)] Future Scheduled 2022-02-27 COVID-19 VACCINE (#1) [facility] Test 05:24:42 [code = COVID-19 VACCINE (#1)] Future Scheduled 2022-02-27 Pneumococcal Vaccine: [facility] Test 05:24:42 Pediatrics (0 to 5 Years) and At-Risk Patients (6 to 64 Years) (1 - PCV) [code = Pneumococcal Vaccine: Pediatrics (0 to 5 Years) and At-Risk Patients (6 to 64 Years) (1 - PCV)] Future Scheduled 2022-02-27 Hepatitis C screening [facility] Test 05:24:42 (procedure) [code = 482642978] Future Scheduled 2022-02-27 Screening for [facility] Test 05:24:42 malignant neoplasm of cervix (procedure) [code = 464109721] Future Scheduled 2022-02-27 INFLUENZA VACCINE [facility] Test 05:24:42 [code = INFLUENZA VACCINE] Future Scheduled 2021-07-22 COVID-19 VACCINE (1) Met [facility] Test 13:11:04 [code = COVID-19 VACCINE (1)] Future Scheduled 2021-07-22 Hepatitis C screening [facility] Test 13:11:04 (procedure) [code = 598511713] Future Scheduled 2021-07-22 Screening for [facility] Test 13:11:04 malignant neoplasm of cervix (procedure) [code = 904721765] Future Scheduled 2021-07-22 INFLUENZA VACCINE Method [facility] Test 13:11:04 [code = INFLUENZA VACCINE] Encounters Start End Encounter Admission Attending Care Care Encounter Source Date/Time Date/Time Type Type Clinicians Facility Department ID 2022-12-15 Outpatient [facility] [id number] [place] 16:29:22 [id number] [facility] 2022-12-11 Outpatient [facility] [id number] [place] 01:41:48 [id number] [facility] 2022-12-10 Outpatient [facility] [id number] [place] 14:27:47 [id number] [facility] 2022-08-28 Outpatient [facility] [id number] [place] 10:54:07 [id number] [facility] 2022-04-29 Outpatient [facility] [id number] [place] 09:02:27 [id number] [facility] 2022-04-28 Outpatient [facility] [id number] [place] 12:17:07 [id number] Health 2021-12-29 Outpatient [facility] [id number] [place] 11:56:31 [id number] [facility] 2021-12-19 Outpatient [facility] [id number] [place] 14:05:12 [id number] [facility] 2021-12-12 Outpatient [facility] [id number] [place] 12:11:07 [id number] [facility] 2021-12-05 Outpatient [facility] [id number] [place] 20:09:51 [id number] [facility] 2021-10-28 Outpatient [facility] [id number] [place] 17:04:22 [id number] [facility] 2021-07-22 Outpatient nullFlavo [facility] [place] [id number] Memoria 00:10:30 r Medical 05 l [facility] 2021-07-22 Preadmit nullFlavo [id number] Memoria 00:10:30 [place] [address] [place] 2021-07-22 Outpatient nullFlavo [facility] [id number] Memoria 00:10:30 r Medical 06 l [facility] 2021-04-22 Emergency [facility] [id number] Univers 02:13:03 ity [facility] 2021-04-18 Emergency [facility] [id number] [facility] [id number] Univers 17:46:08 [facility] 2022-12-12 2022-12-16 Inpatient E MATEUSZ, [facility] [id number] [facility] 05:29:00 13:20:00 ZURDO 2022-12-10 2022-12-11 Emergency E JERARDOO, [facility] [id number] [facility] 14:26:00 02:37:00 VELMA 2022-10-24 2022-10-24 Outpatient Daniels_b [facility] DMG [id number] [facility]:00:00 00:00:00 [facility] 2022-08-28 2022-08-28 Outpatient Daniels_b [facility] DMG [id number] -2022 [facility] 00:00:00 00:00:00 0310 [facility] 2022-08-28 2022-08-28 Outpatient Daniels_b [facility] DMG [id number] -2022 [facility] 00:00:00 00:00:00 0315 [facility] 2022-04-09 2022-04-09 Outpatient Nodal_J [facility] DMG [id number] [facility] 00:00:00 00:00:00 1020 [facility] 2022-01-02 2022-01-02 Outpatient Deshazo_T DMG DMG [id number] -2021 [facility] 03:37:00 03:37:00 0715 [facility] 2021-12-15 2021-12-15 Outpatient EMERY, [facility] [id number] [place] 08:00:00 08:00:00 [facility] 2021-12-02 2021-12-02 Travel 1.2.840.1 [id number] Methodi 00:00:00 00:00:[address] 3.430.2.7 0.2.7.3.698 Ho spita .3.758237 084.8 l .8 2021-11-13 2021-11-13 Transcribe Patience, 1.2.840.1 [id number] Methodi 00:00:00 00:00:00 Orders Jose Miguel Hearn 65220.1.[address] 3.430.2.7 Hospit a .3.429663 l .8 2021-11-05 2021-11-05 Outpatient Deshazo_T [facility] [id number] [facility] 12:00:00 12:00:00 0518 [facility] 2021-10-29 2021-10-29 Telephone Rosy, 1.2.840.1 [id number] Methodi 00:00:00 00:00:[address] [facility] 3.430.2.7 Hospit a .3.400340 l .8 2021-08-20 2021-08-20 Outpatient Deshazo_T [facility] [id number] [facility] 12:30:00 12:30:00 0302 [facility] 2021-07-08 2021-07-08 Office Ann, 1.2.840.1 [id number] Methodi 13:00:00 14:25:36 Visit Bessie 85464.1.[address] [place] 3.430.2.7 Hosp jo-ann .3.751251 l .8 2021-07-08 2021-07-08 Telephone Anthony, 1.2.840.1 [id number] Methodi 00:00:00 00:00:[address] 3.430.2.7 Hospit a .3.044240 l .8 2021-07-08 2021-07-08 Travel 1.2.840.1 1.2.653.048 [id number] Methodi 00:00:00 00:00:[address] 3.430.2.7 0.2.7.3.698 Ho spita .3.864419 084.8 l .8 2021-07-03 2021-07-03 CAV Melany 2.16.840. 2.16.840.1. CLAC [id number] [facility] 19:00:00 20:00:00 Vladimir 1.233379. 220771.4.6. 467 Medical 4.6.51544 [id number] 2021-07-03 2021-07-03 Telephone Seth 1.2.840.1 [id number] Methodi 00:00:00 00:00:[address] [facility] 3.430.2.7 Hosp jo-ann .3.345529 l .8 2021-06-24 2021-06-24 Outpatient Deshazo_T DM DMG [id number] -2021 [facility] 05:31:00 05:31:00 0104 Medica l Group 2021-06-23 2021-06-23 Telephone Anthony, 1.2.840.1 [id number] [id number] Methodi 00:00:00 00:00:[address] 3.430.2.7 Hospit a .3.064597 l .8 2021-06-04 2021-06-18 [facility] 1.2.840.1 [id number] Methodi 18:20:00 18:13:00 Encounter Rachel Brasher 26541.1.[address] [facility] 3.430.2.7 Hospita Shanda Shahid .3.412056 l Aurelio Schumacher .8 2021-06-16 2021-06-16 Anesthesia Yousif, 1.2.840.1 [id number] Methodi 23:59:59 23:59:59 Event Alesia Coelho 65592.1.[address] 3.430.2.7 Hospit a .3.598279 l .8 2021-06-16 2021-06-16 Surgery Joe, 1.2.840.1 [id number] Methodi 13:30:00 17:45:[address] [facility] 3.430.2.7 Hosp jo-ann .3.228329 l .8 2021-06-16 2021-06-16 Anesthesia Jose Carlos, 1.2.840.1 [id number] Methodi 15:19:00 17:19:00 Event Veto 02290.1.1 [address] V. 3.430.2.7 Hospit a .3.690658 l .8 2021-06-10 2021-06-10 Surgery Juwan You 1.2.840.1 [id number] Methodi 08:00:00 10:30:[address] 3.430.2.7 Hospit a .3.652562 l .8 2021-06-10 2021-06-10 Anesthesia Doc, 1.2.840.1 [id number] Methodi 08:26:00 09:40:00 Event Sofi 70800.1.[address] Marquita 3.430.2.7 Hosp jo-ann .3.637214 l .8 2021-06-09 2021-06-09 Prep for Robert, 1.2.840.1 [id number] Methodi 00:00:00 00:00:00 Surgery Gayle 32874.1.[address] 3.430.2.7 Hospit a .3.301648 l .8 2021-06-09 2021-06-09 Prep for Jones, 1.2.840.1 [id number] Methodi 00:00:00 00:00:00 Surgery Gayle 89448.1.[address] 3.430.2.7 Hospit a .3.411371 l .8 2021-06-05 2021-06-05 Anesthesia Frankie Chowdhury 1.2.840.1 [id number] Methodi 10:16:00 11:41:00 Event Chandler Silverman 20732.1.[address] 3.430.2.7 Hospit a .3.642709 l .8 2021-06-05 2021-06-05 Surgery Juwan You 1.2.840.1 [id number] Methodi 09:30:00 11:05:[address] 3.430.2.7 Hospit a .3.677810 l .8 2021-06-03 2021-06-03 Prep for Anthony, 1.2.840.1 [id number] Methodi 00:00:00 00:00:00 Surgery [place] [address]327.1.[address] 3.430.2.7 Hospit a .3.128649 l .8 2021-06-03 2021-06-03 Telephone Adelita, 1.2.840.1 [id number] Methodi 00:00:00 00:00:00 [place] 62838.1.1 [address] 3.430.2.7 Hospit a .3.509279 l .8 2021-05-28 2021-05-28 Outpatient Adams_R [facility]G 21520-6 021 Devoted 05:00:00 05:00:00 1208 Medica l Group 2021-05-27 2021-05-27 Patient Tam, 1.2.840.1 [id number] [id number] Methodi 00:00:00 00:00:00 Outreach Maria M 17585.1.[address] 3.430.2.7 Hospit a .3.386503 l .8 2021-05-27 2021-05-27 Travel 1.2.840.1 1.2.357.320 0104 397373 Methodi 00:00:00 00:00:[address] 3.430.2.7 0.2.7.3.698 Ho spita .3.186159 084.8 l .8 2021-05-27 2021-05-27 Orders Boles, 1.2.840.1 [id number] 2099 737846 Methodi 00:00:00 00:00:00 Only Anila 17308.1.[address] 3.430.2.7 Hospit a .3.696525 l .8 2021-05-26 2021-05-26 Outpatient Adams_R [facility] 62243-7 021 Devoted 03:30:00 03:30:00 1206 Medica l Group 2021-05-26 2021-05-26 Telephone Anthony, 1.2.840.1 [id number] 2099 [id number] Methodi 00:00:00 00:00:[address] 3.430.2.7 Hospit a .3.002433 l .8 2021-05-19 2021-05-25 Hospital Juwan You 1.2.840.1 [id number] 2099 034999 Methodi 06:00:00 15:59:00 Encounter Tom Barber 84064.1.[address] Awe, Marilu Arvin 3.430.2.7 Hospita .3.032136 l .8 2021-05-21 2021-05-21 Outpatient [facility] 95195-5 021 Devoted 03:30:00 03:30:00 1201 Medica l Group 2021-05-19 2021-05-19 Anesthesia Adam, 1.2.840.1 [id number] Methodi 18:45:00 20:31:00 Event Sukhjinder 22497.1.[address] Kendall 3.430.2.7 Hospit a .3.483137 l .8 2021-05-19 2021-05-19 Surgery Juwan You 1.2.840.1 [id number] Methodi 18:50:00 19:55:[address] 3.430.2.7 Hospit a .3.318926 l .8 2021-05-19 2021-05-19 Anesthesia Sukhjinder Medina 1.2.840.1 [id number] Methodi 12:00:00 15:14:00 Event Hanane Ledezma 17501.1.[address] 3.430.2.7 Hospit a .3.656506 l .8 2021-05-19 2021-05-19 Surgery Juwan You 1.2.840.1 [id number] 56625 Methodi 12:05:00 14:45:[address] 3.430.2.7 Hospit a .3.465135 l .8 2021-05-19 2021-05-19 Travel 1.2.840.1 1.2.618.935 6395 888761 Methodi 00:00:00 00:00:[address] 3.430.2.7 0.2.7.3.698 Ho spita .3.774973 084.8 l .8 2021-05-14 2021-05-14 Telephone Corin, 1.2.840.1 [id number] Methodi 00:00:00 00:00:[address] 3.430.2.7 Hospit a .3.768890 l .8 2021-05-14 2021-05-14 Prep for Anthony, 1.2.840.1 [id number] 26 Methodi 00:00:00 00:00:00 Surgery Forrest 45140.1.[address] 3.430.2.7 Hospit a .3.670870 l .8 2021-05-13 2021-05-13 Orders Doctor JOANNA 1.2.840.114 [id number] Univers 00:00:00 00:00:00 Only Unassigned, BEKA 350.1.13.10 ity of [place] [facility] 4.2.7.2.686 Baljinder as [phone] [place] [address] Branch 2021-05-12 2021-05-12 Office KenyattaTory 1.2.840.1 [id number] 89238 Methodi 09:00:00 09:32:[address] 3.430.2.7 Hospit a .3.024703 l .8 2021-05-12 2021-05-12 Outpatient KENYATTA JUWAN [facility] [id number] 1067 [place] 00:00:00 00:00:[address] 2021-05-12 2021-05-12 Telephone Anthony, 1.2.840.1 [id number] 2099 [id number] Methodi 00:00:00 00:00:[address] 3.430.2.7 Hospit a .3.472840 l .8 2021-05-12 2021-05-12 Travel 1.2.840.1 1.2.171.816 2863 296227 Methodi 00:00:00 00:00:[address] 3.430.2.7 0.2.7.3.698 Ho spita .3.229729 084.8 l .8 2021-05-08 2021-05-08 Orders Anthony, 1.2.840.1 [id number] 9184 Methodi 00:00:00 00:00:00 Only Forrest 27185.1.[address] 3.430.2.7 Hospit a .3.743685 l .8 2021-05-08 2021-05-08 Telephone Boles, 1.2.840.1 [id number] Methodi 00:00:00 00:00:[address] 3.430.2.7 Hospit a .3.597563 l .8 2021-05-05 2021-05-05 Office Juwan You 1.2.840.1 [id number] 68758 Methodi 14:00:00 15:41:[address] 3.430.2.7 Hospit a .3.044869 l .8 2021-05-05 2021-05-05 Travel 1.2.840.1 1.2.399.057 4973 585481 Methodi 00:00:00 00:00:[address] 3.430.2.7 0.2.7.3.698 Ho spita .3.902488 084.8 l .8 2021-05-01 2021-05-01 Telephone Diaz, 1.2.840.1 [id number] 2099 067339 Methodi 00:00:00 00:00:[address] Diaz-Hsi 3.430.2.7 Hosp jo-ann .3.194108 l .8 2021-04-08 2021-04-08 [facility] [id number] 799 Univers 09:00:00 09:00:00 MONA ity of [facility] 2021-03-24 2021-03-24 Transition GarciaToño sanchezlisa 1.2.840.114 878 71042 Univers 00:00:00 00:00:00 of Care Missy Guzman 350.1.13.10 it y of [place] 4.2.7.2.686 [place] [phone] [place] [address] Branch 2021-03-19 2021-03-21 [facility] Jimena Easton 1.2.840.1 1007 234486 [id number] Univers 08:24:00 23:08:00 Encounter Eze Dias 23587.1.1 ity of Obed [place] 3.104.2.7 [place] .3.437037 Medica l .8 Branch 2021-03-21 2021-03-21 Outpatient DMG DMG 50141-2 021 Devoted 08:01:00 08:01:00 1001 Medica l Group 2021-03-19 2021-03-19 Orders Doctor 1.2.840.1 [id number] Univers 00:00:00 00:00:00 Only Unassigned, 82771.1.1 ity of [place] 3.104.2.7 [place] .3.004542 Medica l .8 Branch 2021-03-19 2021-03-19 Travel 1.2.840.1 1.2.034.627 7387 4264 Univers 00:00:00 00:00:00 68061.1.1 350.1.13.10 ity of 3.104.2.7 4.[place].7.3.698 [place] .3.495782 084.8 Medica l .8 Branch 2021-01-21 2021-01-29 Inpatient [facility] 27926 03416 [facility] 15:50:00 20:14:[address] 2021-01-21 2021-01-29 Outpatient Aydee [facility] 61000 [id number] 10:50:00 15:14:00 Monisha 12 2021-01-21 2021-01-29 Inpatient U AYDEE, [facility] CAR 7512 [facility] 10:50:00 15:14:00 MONISHA 2021-01-24 2021-01-24 [place] [address]-7 021 Devoted 08:00:00 08:00:00 0806 Medica l Group 2021-01-21 2021-01-21 Outpatient Aydee, [facility] [id number] 92014 10:50:00 10:50:00 Monisha 12 2021-01-03 2021-01-03 Office DOMINIQUE Diane 1.2.840.114 [id number] ID 07:44:43 09:30:54 Visit Alexandr ALTMAN 350.1.13.58 H [facility] MEDICAL 9.2.7.2.686 BUILDING [id number] 1 2021-01-03 2021-01-03 Office DOMINIQUE Diane 1.2.840.114 [id number] 903 07:44:43 09:30:54 Visit Alexandr ALTMAN 350.1.13.58 MEDICAL 9.2.7.2.686 BUILDING [id number] 1 2020-12-26 2020-12-26 Outpatient Eduin KIMBLE [facility] [id number] [facility] 10:30:00 10:30:00 SENDIL [facility] 2020-12-24 2020-12-25 Outpatient nullFlavo Digestive 311 [id number] Memoria 15:32:00 04:59:00 r Disease 11 l Center Vin 2020-12-24 2020-12-24 Outpatient Wright, [facility] [id number] 175 10:32:00 23:59:00 Wonggrupo Madden 2020-12-24 2020-12-24 Outpatient WRIGHT, [facility] 7511 [facility] 10:32:00 23:59:00 HUI 2020-11-12 2020-11-12 Outpatient R GONZALEZ, [facility] [id number] Univers 09:00:00 09:00:00 JOSE LUIS [facility] 2020-10-27 2020-10-27 [facility] 1.2.840.114 [id number] 00:00:00 00:00:00 (Out) Oz Lehman 350.1.13.10 [place] 4.2.7.2.686 Professio [phone] [address] 2020-10-27 2020-10-27 [facility]ona [facility] 1.2.840.114 [id number] 98 Univers 00:00:00 00:00:00 (Out) Oz Lehman 350.1.13.10 ity of [place].7.2.[place] Profess[place] [phone] Ny dic[address] 2020-10-24 2020-10-24 Orders Doctor JOANNA 1.2.840.114 [id number] 42 00:00:00 00:00:00 Only Unassigned, BEKA 350.1.13.10 [place] [facility] 4.2.7.2.686 [id number] [facility] 2020-10-24 2020-10-24 Orders Doctor JOANNA 1.2.840.114 [id number] Univers 00:00:00 00:00:00 Only Unassigned, BEKA 350.1.13.10 ity of [place] [facility] 4.2.7.2.686 Baljinder as [phone] [address] 2020-09-24 2020-09-24 Refill [facility] 1.2.840.114 [id number] 24 00:00:00 00:00:00 Wentong [place] 350.1.13.10 [place] 4.2.7.2.686 Professio [phone] nal 220 [facility] 2020-09-24 2020-09-24 Refill [facility] 1.2.840.114 [id number] Univers 00:00:00 00:00:00 Wentong [place] 350.1.13.10 i ty of [place].7.2.[place] [phone] Ny dical nal 220 [facility] 2020-09-09 2020-09-09 Patient [facility] 1.2.840.114 [id number] 00:00:00 00:00:00 Outreach Earl PRIMARY 350.1.13.10 Manuel CARE 4.2.7.2.686 PAVILLION [phone] 388 2020-09-09 2020-09-09 Patient [facility] 1.2.840.114 [id number] Univers 00:00:00 00:00:00 Outreach Earl PRIMARY 350.1.13.10 i ty of [place] C[place] 4.2.7.2.686 [place] [phone] Ny dical [address] [place] 2020-08-06 2020-08-06 [facility] [id number] Univers 14:30:00 14:30:00 [facility] 2020-08-05 2020-08-05 Outpatient R BLACK [facility] [id number] Univers 13:30:00 13:30:00 DEJA ity [facility] 2020-07-23 2020-07-23 [facility] 1.2.840.114 [id number] [id number] Univers 13:39:08 23:59:00 Encounter Deja PRIMARY 350.1.13.10 ity of [place] CARE 4.2.7.2.686 [place] P[place] [phone] Ny dical [address] [place] 2020-07-23 2020-07-23 Office [facility] 1.2.950.815 4669 5976 13:31:20 14:37:36 Visit Deja PRIMARY 350.1.13.10 A CARE 4.2.7.2.686 PAVILLION [id number] 198 2020-07-23 2020-07-23 Office [facility] 1.2.749.[address] [facility] 13:31:20 14:37:36 Visit Deja PRIMARY 350.1.13.10 ity of [place] 4.2.7.2.[place] [phone] [address] 2020-07-23 2020-07-23 Outpatient R [facility] [id number] Univers 13:30:00 13:30:00 DEJA ity [facility] 2020-07-09 2020-07-09 Outpatient R [facility] [id number] Univers 09:00:00 09:00:00 ity of [facility] 2020-07-03 2020-07-03 Telephone [facility] 1.2.565.[address] [facility] 00:00:00 00:00:00 Oz Lehman 350.1.13.10 ity of [place] 4.2.7.2.[place] Profess[place] [phone] Ny dic[address] 2020-06-27 2020-06-27 [facility] 1.2.840.114 [id number] Univers 10:05:43 11:00:00 Visit Oz Lehman 350.1.13.10 ity of [place] 4.2.7.2.686 [place] [phone] Ny dical [address] 2020-06-27 2020-06-27 [facility] 1.2.840.114 [id number] Univers 10:05:43 11:00:00 Visit Oz LEHMAN 350.1.13.10 ity of [place] 4.2.7.2.686 [place] PROFESS[place] [phone] Ny dical NAL 059 [facility] 2020-06-27 2020-06-27 Outpatient R LAMIN [facility] [id number] Univers 09:30:00 11:00:00 SENDIL ity of [facility] 2020-06-27 2020-06-27 Outpatient R LAMIN [facility] [id number] Univers 09:30:00 09:30:00 SENDIL ity [facility] 2020-05-28 2020-05-28 Laboratory Pc, Adc Echo Room 1 - [facility] 1 .2.840.114 [id number] Univers 08:01:11 08:48:06 Only Oz Kimble 350.1.13. 10 ity of [place] 4.2.7.2.[place] [phone] Ny dical nal 059 [facility] 2020-05-28 2020-05-28 Outpatient R [facility] [id number] Univers 08:00:00 08:00:00 ity [facility] 2020-05-10 2020-05-10 Nurse Visit, [facility] Nurse [facility] 1.2.840.1 14 [id number] Univers 08:31:07 08:43:46 Visit Oz Kimble 350.1.13. 10 ity of [place]2.7.2.[place] [phone] Ny dical nal 059 [facility] 2020-05-10 2020-05-10 Outpatient R LAMIN [facility] [id number] Univers 08:30:00 08:30:00 SENDIL ity [facility] 2020-05-07 2020-05-07 Outpatient R [facility] [id number] Univers 08:00:00 08:00:00 ity [facility] 2020-05-01 2020-05-01 Office Gonzalez, [facility] 1.2.840.114 [id number] Univers 11:02:55 12:04:48 Visit Jose Luis Lehman 350.1.13.10 i ty of [place] 4.2.7.2.[place] [phone] Ny dical nal 220 [facility] 2020-05-01 2020-05-01 Outpatient R CARLOS [facility] [id number] Univers 10:30:00 10:30:00 WENTONG itcaron [facility] 2020-04-25 2020-04-25 Office Lamin [facility] 1.2.840.114 [id number] Univers 10:07:58 10:48:50 Visit Sendbhavana Lehman 350.1.13.10 ity of [place] 4.2.7.2.[place] [phone] Ny dical nal 059 [facility] 2020-04-25 2020-04-25 [facility] [id number] Univers 10:00:00 10:00:00 SENDIL shocaron [facility] 2020-04-25 2020-04-25 Orders Doctor JOANNA 1.2.840.114 [id number] Univers 00:00:00 00:00:00 Only Unassigned, BEKA 350.1.13.10 ity of [place] [facility] 4.2.7.2.686 Baljinder as [phone] [address] 2020-04-05 2020-04-05 Outpatient [facility] [id number] Univers 09:30:00 09:30:00 SENDBHAVANA low [facility] 2020-04-03 2020-04-03 Supervisor [employer] 2, Adc Lab [facility] 1.2.840.114 [id number] Univers 13:13:38 13:28:38 Visit Mona Bhat 350.1.13.10 ity of [place] 4.2.7.2.[place] [phone] Ny dical nal 353 [facility] 2020-04-03 2020-04-03 Outpatient R CASEY [facility] [id number] Univers 13:00:00 13:00:00 MONA low [facility] 2020-04-02 2020-04-02 Office [facility] 1.2.840.114 [id number] Univers 09:00:33 09:54:22 Visit Mona Lehman 350.1.13.10 ity of [place] 4.2.7.2.[place] [phone] Ny dical nal 134 [facility] 2020-04-02 2020-04-02 Outpatient R CASEY, [facility] [id number] Univers 08:30:00 08:30:00 MONA ity [facility] 2020-04-02 2020-04-02 [facility] [id number] Univers 08:30:00 08:30:00 MONA itcaron [facility] 2020-04-02 2020-04-02 Emergency [facility] 1.2.840.114 [id number] Univers 00:24:00 01:09:00 Marlin Lehman 350.1.13.10 i ty of [place] 4.2.7.2.686 [place] [phone] [facility] [address] [place] 2020-04-02 2020-04-02 Orders Doctor JOANNA 1.2.840.114 [id number] Univers 00:00:00 00:00:00 Only Unassigned, BEKA 350.1.13.10 ity of [place] [facility] 4.2.7.2.686 Baljinder as [phone] [facility] [address] [place] 2020-03-16 2020-03-16 Tele[facility] .2.840.114 [id number] Univers 00:00:00 00:00:00 Yury Lehman 350.1.13.10 i ty of [place] 4.2.7.2.[place] [phone] [facility] 134 [facility] 2020-03-08 2020-03-08 Out[facility] [id number] Univers 11:00:00 11:00:00 LIMA low o rosey [facility] 2020-03-07 2020-03-07 Telephone [facility] 1.2.840.114 [id number] Univers 00:00:00 00:00:00 Lima Lehman 350.1.13.10 ity of [place] 4.2.7.2.[place] Profess[place] [phone] [facility] 188 [facility] 2020-02-06 2020-02-06 Outpatient R DORA [facility] [id number] Univers 09:30:00 09:30:00 BRANDON [facility] 2020-02-06 2020-02-06 Office [facility] 1.2.840.114 [id number] Univers 08:57:01 09:24:05 Visit Brandon Lehman 350.1.13.10 i ty of [place] 4.2.7.2.686 Amisha lombardo [facility] [phone] Ny dical [address] 2020-01-25 2020-01-31 Inpatient 1 Rei Waldron [facility] GPY [id number] 21:31:00 18:15:00 ChivoRei hussein [facility] 2020-01-24 2020-01-24 Outpatient R DIDIER [facility] [id number] Univers 09:45:00 09:45:00 HUMAIR [facility] 2020-01-23 2020-01-23 Outpatient Eduin [facility] [id number] Univers 10:30:00 10:30:00 [facility] 2019-12-18 2019-12-18 Outpatient Eduin RUST [facility] [id number] Univers 08:00:00 08:00:00 YISSEL [facility] 2019-12-04 2019-12-04 Outpatient Eduin JOHN [facility] [id number] Univers 14:15:00 14:15:00 BRANDON [facility] 2019-11-06 2019-11-06 Telemedici Tangela[facility] 1.2.840.114 [id number] Univers 07:49:37 08:46:52 ne Visit Yissel Parr 350.1.13.10 ity of [facility] 4.2.7.2.686 Baljinder as BANK [phone] [facility] BLDG. [address] [place] 2019-11-06 2019-11-06 Outpatient Eduin RUST [facility] [id number] Univers 08:00:00 08:00:00 YISSEL ity [facility] 2019-10-01 2019-10-01 Emergency [facility] 1.2.685.921 [id number] Univers 15:47:29 19:01:00 Stacie Lehman 350.1.13.10 i [facility] 4.2.7.2.686 [place] [phone] [facility] [address] [place] 2019-09-05 2019-09-05 Outpatient R DORA [facility] [id number] Univers 13:30:00 13:30:00 [facility] 2019-08-28 2019-08-28 Outpatient R ZEKE RUVALCABA [facility] [id number] Univers 15:00:00 15:00:00 ity [facility] 2019-02-27 2019-02-27 Telephone [facility] 1.2.840.114 [id number] Univers 00:00:00 00:00:00 Adán T SPECIALTY 350.1.13.10 ity of CARE 4.2.7.2.686 [place] AT [phone] [facility] 188 [facility] 2019-02-25 2019-02-25 Telephone [facility] 1.2.840.114 [id number] Univers 00:00:00 00:00:00 Adán Nix SPECIALTY 350.1.13.10 ity of CARE 4.2.7.2.686 [facility] AT [phone] [facility] 205 [facility] 2019-02-22 2019-02-22 [facility] Oz Kimble [id number] [facility] [address] [facility] 09:19:22 23:59:00 Encounter Outpt-Josy, Ccl Beka 350.1.13.10 ity of Hospital 4.2.7.2.686 Baljinder as [phone] [address] 2019-02-22 2019-02-22 [facility].8 40.114 [id number] Univers 08:00:00 09:18:00 Encounter Outpt-Josy, Ccl Ladora 350.1.13.10 ity of [facility] 4.2.7.2.686 Baljinder as [phone] [address] 2019-02-17 2019-02-17 Office Putrosalie [facility] 1.2.840.114 [id number] Univers 13:09:08 13:54:39 Visit Gary gray [facility] 350.1.13.10 ity of [place] 4.2.7.2.[place] CENTER [phone] [facility] [address] 2019-02-17 2019-02-17 Orders Doctor JOANNA 1.2.840.114 [id number] Univers 00:00:00 00:00:00 Only Unassigned, BEKA 350.1.13.10 ity of [place] HOSPITAL 4.2.7.2.686 Baljinder as [phone] [facility] 009 [address] 2019-01-25 2019-01-25 Telephone Traci Kimble 1.2.469.123 [id number] Univers 00:00:00 00:00:00 Sendbhavana [place] 350.1.13.10 ity of Hospital 4.2.7.2.686 Baljinder as [phone] [facility] [address] 2019-01-25 2019-01-25 Telephone Traci Kimble 1.2.640.711 [id number] Univers 00:00:00 00:00:00 Sendbhavana [place] 350.1.13.10 ity of Hospital 4.2.7.2.686 Baljinder as [phone] [facility] [address] 2019-01-20 2019-01-20 Office Lamin [facility] 1.2.840.114 [id number] Univers 08:55:54 09:56:43 Visit Oz Lehman 350.1.13.10 ity of [place] 4.2.7.2.[place] Profess[place] [phone] Ny dical nal 059 [facility] 2019-01-14 2019-01-15 Emergency Hunderup, TRAUMA 1.2.840.114 [id number] Univers 18:20:35 00:24:00 [facility] 350.1.13.10 it y of 4.2.7.2.686 [place] [phone] [facility] 014 [address] 2019-01-13 2019-01-13 Office Digna IDIMELDA 1.2.840.[id number] [facility] 08:10:44 09:19:41 Visit Lima Lehman 350.1.13.10 ity of [place] 4.2.7.2.[place] Profess[place] [phone] Ny dical nal 205 [facility] 2018-05-24 2018-05-24 Outpatient SARAHY DORADO, [facility] [id number] [facility] 00:00:00 00:00:00 LY 2016-07-24 2016-07-30 Inpatient nullFlavo [facility] [id number] Memoria 02:04:00 16:20:[address] 2016-07-23 2016-07-30 Outpatient Yaquelin, [facility] [id number] 20:04:00 10:20:00 Luna 10 2016-06-10 2016-06-15 Inpatient nullFlavo [facility] [id number] Memoria 16:02:00 18:23:[address] 2016-06-10 2016-06-15 Outpatient Franck, [facility] [id number] 10:02:00 12:23:00 Joe Yan 09 2014-06-26 2014-06-26 nullFlavo [facility] [id number] 175 Memoria 05:25:00 15:14:[address] 2014-06-25 2014-06-26 Outpatient Ostermayer, 2.16.840. 2.16.840. 1. [id number] 23:25:00 09:14:00 Atul 1.827589. 096487.3.61 08 Cem 3.615.0.1 5.0.137 96 6297-10-25 2013-04-15 [facility] [id number] Memoria 21:04:00 01:45:[address] 2013-04-14 2013-04-15 Outpatient 2.16.840. 2.16.840.1. 4 [id number] Memoria 21:04:00 01:45:00 [id number]. [id number] 07 l 3.615.0.1 5.0.[address] 2013-04-14 2013-04-15 Outpatient 2.16.840. 2.16.840.1. 4 [id number] Memoria 21:04:00 01:45:00 [id number]. [id number] 07 l 3.615.0.1 5.0.101 Jake n 01 [facility] 2013-04-14 2013-04-15 Outpatient 2.16.840. 2.16.840.1. 4 [id number] Memoria 21:04:00 01:45:00 1.882350. [id number] 07 l 3.615.0.1 5.0.101 Jake n 01 [facility] 2013-04-14 2013-04-15 Outpatient 2.16.840. 2.16.840.1. 4 [id number] Memoria 21:04:00 01:45:00 [id number]. [id number] 07 l 3.615.0.1 5.0.101 Jake n [facility] 2013-04-14 2013-04-15 Outpatient 2.16.840. 2.16.840.1. 4 [id number] Memoria 21:04:00 01:45:00 1.052363. [id number] 07 l 3.615.0.1 5.0.101 Jake n [facility] 2012-03-14 2012-03-14 Emergency nullFlavo [id number] Memoria 16:32:00 22:39:00 r [facility] 04 [facility] 2011-11-28 2011-11-30 OU nullFlavo [facility] [id number] Memoria 12:16:00 20:40:00 [facility] 03 [facility] 2011-09-18 2011-09-18 Emergency nullFlavo [facility] [id number] Memoria 08:23:00 13:34:00 r [facility] 02 [facility] 2011-09-01 2011-09-09 Inpatient nullFlavo [facility] [id number] Memoria 01:40:00 15:00:00 [facility] 01 [facility] 2011-08-19 2011-08-23 Inpatient nullFlavo [facility] [id number] Memoria 14:25:00 15:28:00 r [facility] 00 [facility] Results Test Description Test Time Test Comments Results Result Comments Source AFB culture 2021-07-22 18:13:19 Test Item Value Reference Range Interpretation Comme nts AFB culture isolate No growth after 6 weeks of Specimen InformationSpecimen (test code = 543-9) incubation. Source: DrainageSpecimen Site: Thigh: infected wound right thigh [facility]2022-02-01 18:13:19 Test Item Value Reference Range Interpretation Comments AFB culture No growth Specimen isolate (test after 6 weeks InformationSp ecimen code = 543-9) of Source: [place] geSpecimen incubation. Site: Thigh: in fected wound right [facility]2022-02-01 18:13:19 Test Item Value Reference Range Interpretation Comments AFB culture No growth Specimen isolate (test after 6 weeks InformationSp ecimen code = 543-9) of Source: [place] geSpecimen incubation. Site: Thigh: in fected wound right [facility]2022-02-01 18:13:19 Test Item Value Reference Range Interpretation Comments AFB culture No growth Specimen isolate (test after 6 weeks InformationSp ecimen code = 543-9) of Source: [place] geSpecimen incubation. Site: Thigh: in fected wound right [facility]2022-02-01 18:13:19 Test Item Value Reference Range Interpretation Comments AFB culture No growth Specimen isolate (test after 6 weeks InformationSp ecimen code = 543-9) of Source: [place] geSpecimen incubation. Site: Thigh: in fected wound right [facility]2022-02-01 18:13:19 Test Item Value Reference Range Interpretation Comments AFB culture No growth Specimen isolate (test after 6 weeks InformationSp ecimen code = 543-9) of Source: [place] geSpecimen incubation. Site: Thigh: in fected wound right [facility]2022-02-01 18:13:19 Test Item Value Reference Range Interpretation Comments AFB culture No growth Specimen isolate (test after 6 weeks InformationSp ecimen code = 543-9) of Source: [place] geSpecimen incubation. Site: Thigh: in fected wound right [facility]2022-02-01 18:13:19 Test Item Value Reference Range Interpretation Comments AFB culture No growth Specimen isolate (test after 6 weeks InformationSp ecimen code = 543-9) of Source: [place] geSpecimen incubation. Site: Thigh: in fected wound right [facility] [id number] 18:13:19 Test Item Value Reference Range Interpretation Comments AFB culture No growth Specimen isolate (test after 6 weeks InformationSp ecimen code = 543-9) of Source: [place] geSpecimen incubation. Site: Thigh: in fected wound right [facility] [id number] 18:13:19 Test Item Value Reference Range Interpretation Comments AFB culture No growth Specimen isolate (test after 6 weeks InformationSp ecimen code = 543-9) of Source: [place] geSpecimen incubation. Site: Thigh: in fected wound right [facility] [id number] 18:13:19 Test Item Value Reference Range Interpretation Comments AFB culture No growth Specimen isolate (test after 6 weeks InformationSp ecimen code = 543-9) of Source: [place] geSpecimen incubation. Site: Thigh: in fected wound right [facility] [id number] 18:15:13 Test Item Value Reference Range Interpretation Comments Fungus culture No growth Specimen isolate (test after 4 weeks InformationSp ecimen code = 1441) of Source: TissueS pecimen incubation. Site: Thigh [facility]2022-01-25 18:15:13 Test Item Value Reference Range Interpretation Comments Fungus culture No growth Specimen isolate (test after 4 weeks InformationSp ecimen code = 1441) of Source: TissueS pecimen incubation. Site: Thigh [facility]2022-01-25 18:15:13 Test Item Value Reference Range Interpretation Comments Fungus culture No growth Specimen isolate (test after 4 weeks InformationSp ecimen code = 1441) of Source: TissueS pecimen incubation. Site: Thigh [facility] [id number] 18:15:13 Test Item Value Reference Range Interpretation Comments Fungus culture No growth Specimen isolate (test after 4 weeks InformationSp ecimen code = 1441) of Source: TissueS pecimen incubation. Site: Thigh [facility]2022-01-25 18:15:13 Test Item Value Reference Range Interpretation Comments Fungus culture No growth Specimen isolate (test after 4 weeks InformationSp ecimen code = 1441) of Source: TissueS pecimen incubation. Site: [facility]2022-01-25 18:15:13 Test Item Value Reference Range Interpretation Comments Fungus culture No growth Specimen isolate (test after 4 weeks InformationSp ecimen code = 1441) of Source: TissueS pecimen incubation. Site: [facility]2022-01-25 18:15:13 Test Item Value Reference Range Interpretation Comments Fungus culture No growth Specimen isolate (test after 4 weeks InformationSp ecimen code = 1441) of Source: TissueS pecimen incubation. Site: [facility]2022-01-25 18:15:13 Test Item Value Reference Range Interpretation Comments Fungus culture No growth Specimen isolate (test after 4 weeks InformationSp ecimen code = 1441) of Source: TissueS pecimen incubation. Site: [facility]2022-01-25 18:15:13 Test Item Value Reference Range Interpretation Comments Fungus culture No growth Specimen isolate (test after 4 weeks InformationSp ecimen code = 1441) of Source: TissueS pecimen incubation. Site: [facility]2022-01-25 18:15:13 Test Item Value Reference Range Interpretation Comments Fungus culture No growth Specimen isolate (test after 4 weeks InformationSp ecimen code = 1441) of Source: TissueS pecimen incubation. Site: [facility]2022-01-25 18:15:13 Test Item Value Reference Range Interpretation Comments Fungus culture No growth Specimen isolate (test after 4 weeks InformationSp ecimen code = 1441) of Source: TissueS pecimen incubation. Site: [facility]2022-01-25 18:15:13 Test Item Value Reference Range Interpretation Comments Fungus culture No growth Specimen isolate (test after 4 weeks InformationSp ecimen code = 1441) of Source: TissueS pecimen incubation. Site: [facility]2022-01-25 18:15:13 Test Item Value Reference Range Interpretation Comments Fungus culture No growth Specimen isolate (test after 4 weeks InformationSp ecimen code = 1441) of Source: TissueS pecimen incubation. Site: [facility]2022-01-01 14:31:13 Test Item Value Reference Range Interpretation Comments Anaerobic No anaerobic Specimen culture isolate organisms InformationS pecimen (test code = isolated. Source: TissueS pecimen 552) Site: [place] 263362-01-01 14:31:13 Test Item Value Reference Range Interpretation Comments Anaerobic No anaerobic Specimen culture isolate organisms InformationS pecimen (test code = isolated. Source: TissueS pecimen 552) Site: [place] 263362-01-01 14:31:13 Test Item Value Reference Range Interpretation Comments Anaerobic No anaerobic Specimen culture isolate organisms InformationS pecimen (test code = isolated. Source: TissueS pecimen 552) Site: [place] 263362-01-01 14:31:13 Test Item Value Reference Range Interpretation Comments Anaerobic No anaerobic Specimen culture isolate organisms InformationS pecimen (test code = isolated. Source: TissueS pecimen 552) Site: [place] [address]-01-01 14:31:13 Test Item Value Reference Range Interpretation Comments Anaerobic No anaerobic Specimen culture isolate organisms InformationS pecimen (test code = isolated. Source: TissueS pecimen 552) Site: [place] 263362-01-01 14:31:13 Test Item Value Reference Range Interpretation Comments Anaerobic No anaerobic Specimen culture isolate organisms InformationS pecimen (test code = isolated. Source: TissueS pecimen 552) Site: [place] 263362-01-01 14:31:13 Test Item Value Reference Range Interpretation Comments Anaerobic No anaerobic Specimen culture isolate organisms InformationS pecimen (test code = isolated. Source: TissueS pecimen 552) Site: [place] 263362-01-01 14:31:13 Test Item Value Reference Range Interpretation Comments Anaerobic No anaerobic Specimen culture isolate organisms InformationS pecimen (test code = isolated. Source: TissueS pecimen 552) Site: [place] 263362-01-01 14:31:13 Test Item Value Reference Range Interpretation Comments Anaerobic No anaerobic Specimen culture isolate organisms InformationS pecimen (test code = isolated. Source: TissueS pecimen 552) Site: [place] 263362-01-01 14:31:13 Test Item Value Reference Range Interpretation Comments Anaerobic No anaerobic Specimen culture isolate organisms InformationS pecimen (test code = isolated. Source: TissueS pecimen 552) Site: [facility]2022-01-01 14:31:13 Test Item Value Reference Range Interpretation Comments Anaerobic No anaerobic Specimen culture isolate organisms InformationS pecimen (test code = isolated. Source: TissueS pecimen 552) Site: [facility]2022-01-01 14:31:13 Test Item Value Reference Range Interpretation Comments Anaerobic No anaerobic Specimen culture isolate organisms InformationS pecimen (test code = isolated. Source: TissueS pecimen 552) Site: [facility]2022-01-01 14:31:13 Test Item Value Reference Range Interpretation Comments Anaerobic No anaerobic Specimen culture isolate organisms InformationS pecimen (test code = isolated. Source: [facility] ballardimen 552) Site: [facility] [id number] 16:51:58 Test Item Value Reference Range Interpretation Comments Gram stain No WBC's or Specimen isolate (test organisms seen. Information Specimen code = 1469) Source: [facility] [id number] 16:51:58 Test Item Value Reference Range Interpretation Comments Aerobic culture No growth Specimen isolate (test after 3 days. InformationSp ecimen code = 498) Source: TissueS pecimen Site: [facility] [id number] 16:51:58 Test Item Value Reference Range Interpretation Comments Fungus smear No fungi Specimen (test code = observed. InformationSpec imen Source: 1443) TissueSpecimen Site: [facility] [id number] 16:51:58 Test Item Value Reference Range Interpretation Comments Gram stain No WBC's or Specimen isolate (test organisms seen. Information Specimen code = 1469) Source: [facility]S pecimen [facility] [id number] 16:51:58 Test Item Value Reference Range Interpretation Comments Aerobic culture No growth Specimen isolate (test after 3 days. InformationSp ecimen code = 498) Source: [facility]S pecimen [facility] [id number] 16:51:58 Test Item Value Reference Range Interpretation Comments Fungus smear No fungi Specimen (test code = observed. InformationSpec imen Source: 1443) [facility]2021-12-31 16:51:58 Test Item Value Reference Range Interpretation Comments Gram stain No WBC's or Specimen isolate (test organisms seen. Information Specimen code = 1469) Source: [facility] Site: [facility] [id number] 16:51:58 Test Item Value Reference Range Interpretation Comments Aerobic culture No growth Specimen isolate (test after 3 days. InformationSp ecimen code = 498) Source: [facility] Site: [facility] [id number] 16:51:58 Test Item Value Reference Range Interpretation Comments Fungus smear No fungi Specimen (test code = observed. InformationSpec imen Source: 1443) [facility] Site: [facility]2021-12-31 16:51:58 Test Item Value Reference Range Interpretation Comments Gram stain No WBC's or Specimen isolate (test organisms seen. Information Specimen code = 1469) Source: [facility] Site: [facility]2021-12-31 16:51:58 Test Item Value Reference Range Interpretation Comments Aerobic culture No growth Specimen isolate (test after 3 days. InformationSp ecimen code = 498) Source: [facility] Site: [facility]2021-12-31 16:51:58 Test Item Value Reference Range Interpretation Comments Fungus smear No fungi Specimen (test code = observed. InformationSpec imen Source: 1443) [facility] Site: [facility]2021-12-31 16:51:58 Test Item Value Reference Range Interpretation Comments Gram stain No WBC's or Specimen isolate (test organisms seen. Information Specimen code = 1469) Source: [facility] Site: [facility] [id number] 16:51:58 Test Item Value Reference Range Interpretation Comments Aerobic culture No growth Specimen isolate (test after 3 days. InformationSp ecimen code = 498) Source: [facility] Site: [facility] [id number] 16:51:58 Test Item Value Reference Range Interpretation Comments Fungus smear No fungi Specimen (test code = observed. InformationSpec imen Source: 1443) [facility] [id number] 16:51:58 Test Item Value Reference Range Interpretation Comments Gram stain No WBC's or Specimen isolate (test organisms seen. Information Specimen code = 1469) Source: [facility] [id number] 16:51:58 Test Item Value Reference Range Interpretation Comments Aerobic culture No growth Specimen isolate (test after 3 days. InformationSp ecimen code = 498) Source: [facility] [id number] 16:51:58 Test Item Value Reference Range Interpretation Comments Fungus smear No fungi Specimen (test code = observed. InformationSpec imen Source: 1443) TissueSpecimen Site: [facility] [id number] 16:51:58 Test Item Value Reference Range Interpretation Comments Gram stain No WBC's or Specimen isolate (test organisms seen. Information Specimen code = 1469) Source: [facility] [id number] 16:51:58 Test Item Value Reference Range Interpretation Comments Aerobic culture No growth Specimen isolate (test after 3 days. InformationSp ecimen code = 498) Source: [facility] [id number] 16:51:58 Test Item Value Reference Range Interpretation Comments Fungus smear No fungi Specimen (test code = observed. InformationSpec imen Source: 1443) [facility] [id number] 16:51:58 Test Item Value Reference Range Interpretation Comments Gram stain No WBC's or Specimen isolate (test organisms seen. Information Specimen code = 1469) Source: [facility] [id number] 16:51:58 Test Item Value Reference Range Interpretation Comments Aerobic culture No growth Specimen isolate (test after 3 days. InformationSp ecimen code = 498) Source: [facility] [id number] 16:51:58 Test Item Value Reference Range Interpretation Comments Fungus smear No fungi Specimen (test code = observed. InformationSpec imen Source: 1443) TissueSpecime Site: [facility] [id number] 16:51:58 Test Item Value Reference Range Interpretation Comments Gram stain No WBC's or Specimen isolate (test organisms seen. Information Specimen code = 1469) Source: [facility] [id number] 16:51:58 Test Item Value Reference Range Interpretation Comments Aerobic culture No growth Specimen isolate (test after 3 days. InformationSp ecimen code = 498) Source: [facility] [id number] 16:51:58 Test Item Value Reference Range Interpretation Comments Fungus smear No fungi Specimen (test code = observed. InformationSpec imen Source: 1443) TissueSpecime Site: [facility] [id number] 16:51:58 Test Item Value Reference Range Interpretation Comments Gram stain No WBC's or Specimen isolate (test organisms seen. Information Specimen code = 1469) Source: [facility] Site: [facility] [id number] 16:51:58 Test Item Value Reference Range Interpretation Comments Aerobic culture No growth Specimen isolate (test after 3 days. InformationSp ecimen code = 498) Source: [facility] [id number] 16:51:58 Test Item Value Reference Range Interpretation Comments Fungus smear No fungi Specimen (test code = observed. InformationSpec imen Source: 1443) [facility]2021-12-31 16:51:58 Test Item Value Reference Range Interpretation Comments Gram stain No WBC's or Specimen isolate (test organisms seen. Information Specimen code = 1469) Source: [facility] [id number] 16:51:58 Test Item Value Reference Range Interpretation Comments Aerobic culture No growth Specimen isolate (test after 3 days. InformationSp ecimen code = 498) Source: [facility] [id number] 16:51:58 Test Item Value Reference Range Interpretation Comments Fungus smear No fungi Specimen (test code = observed. InformationSpec imen Source: 1443) [facility] [id number] 16:51:58 Test Item Value Reference Range Interpretation Comments Gram stain No WBC's or Specimen isolate (test organisms seen. Information Specimen code = 1469) Source: TissueS pecimen [facility] [id number] 16:51:58 Test Item Value Reference Range Interpretation Comments Aerobic culture No growth Specimen isolate (test after 3 days. InformationSp ecimen code = 498) Source: TissueS pecimen [facility] [id number] 16:51:58 Test Item Value Reference Range Interpretation Comments Fungus smear No fungi Specimen (test code = observed. InformationSpec imen Source: 1443) TissueSpecimen [facility] [id number] 16:51:58 Test Item Value Reference Range Interpretation Comments Gram stain No WBC's or Specimen isolate (test organisms seen. Information Specimen code = 1469) Source: [facility] [id number] 16:51:58 Test Item Value Reference Range Interpretation Comments Aerobic culture No growth Specimen isolate (test after 3 days. InformationSp ecimen code = 498) Source: [facility] [id number] 16:51:58 Test Item Value Reference Range Interpretation Comments Fungus smear No fungi Specimen (test code = observed. InformationSpec imen Source: 1443) TissueSpecimen Site: [facility] [id number] 17:00:57 Test Item Value Reference Range Interpretation Comments POC glucose (test code 79 mg/dL 65-99 Opera tor Name: Eboni = 31980-5) AmiDevice ID: [id number] [facility] [id number] 17:00:57 Test Item Value Reference Range Interpretation Comments POC glucose (test code 79 mg/dL 65-99 Opera tor Name: Eboni = 70204-3) AmiDevice ID: [id number] [facility] [id number] 17:00:57 Test Item Value Reference Range Interpretation Comments POC glucose (test code 79 mg/dL 65-99 Opera tor Name: E[place]i = 12436-0) AmiDevice ID: [id number] [facility] [id number] 17:00:57 Test Item Value Reference Range Interpretation Comments POC glucose (test code 79 mg/dL 65-99 Opera tor Name: Eboni = 54502-4) AmiDevice ID: [id number] [facility] [id number] 17:00:57 Test Item Value Reference Range Interpretation Comments POC glucose (test code 79 mg/dL 65-99 Christophera tor Name: Eboni = 72240-5) AmiDevice ID: [id number] [facility] [id number] 17:00:57 Test Item Value Reference Range Interpretation Comments POC glucose (test code 79 mg/dL 65-99 Opera tor Name: Eboni = 97969-8) AmiDevice ID: [id number] [facility]2021-12-29 17:00:57 Test Item Value Reference Range Interpretation Comments POC glucose (test code 79 mg/dL 65-99 Christophera tor Name: Eboni = 92558-6) AmiDevice ID: [id number] [facility]2021-12-29 17:00:57 Test Item Value Reference Range Interpretation Comments POC glucose (test code 79 mg/dL 65-99 Christophera tor Name: Eboni = 32376-1) AmiDevice ID: [id number] [facility]2021-12-29 17:00:57 Test Item Value Reference Range Interpretation Comments POC glucose (test code 79 mg/dL 65-99 Christophera tor Name: E[place]i = 17498-3) AmiDevice ID: [id number] [facility]2021-12-29 17:00:57 Test Item Value Reference Range Interpretation Comments POC glucose (test code 79 mg/dL 65-99 Opera tor Name: Eboni = 25512-4) AmiDevice ID: [id number] [facility]2021-12-29 17:00:57 Test Item Value Reference Range Interpretation Comments POC glucose (test code 79 mg/dL 65-99 Opera tor Name: Eboni = 89738-0) AmiDevice ID: [id number] [facility]2021-12-29 17:00:57 Test Item Value Reference Range Interpretation Comments POC glucose (test code 79 mg/dL 65-99 Opera tor Name: Eboni = 25285-4) AmiDevice ID: [id number] [facility] [id number] 17:00:57 Test Item Value Reference Range Interpretation Comments POC glucose (test code 79 mg/dL 65-99 Opera tor Name: [place]i = 28886-1) AmiDevice ID: [id number] [facility] , [id number] 20:46:00 Test Item Value Reference Range Interpretation Comments test urine, POC (test Negative code = 2984716) Internal QC (test code = 257) QC acceptable [facility] , [id number] 20:46:00 Test Item Value Reference Range Interpretation Comments test urine, POC (test Negative code = 7523733) Internal QC (test code = 257) QC acceptable [facility] , [id number] 20:46:00 Test Item Value Reference Range Interpretation Comments test urine, POC (test Negative code = 6738426) Internal QC (test code = 257) QC acceptable [facility] , [id number] 20:46:00 Test Item Value Reference Range Interpretation Comments test urine, POC (test Negative code = 8123212) Internal QC (test code = 257) QC acceptable [facility] , [id number] 20:46:00 Test Item Value Reference Range Interpretation Comments test urine, POC (test Negative code = 4217280) Internal QC (test code = 257) QC acceptable [facility] , [id number] 20:46:00 Test Item Value Reference Range Interpretation Comments test urine, POC (test Negative code = 6356592) Internal QC (test code = 257) QC acceptable [facility] , [id number] 20:46:00 Test Item Value Reference Range Interpretation Comments test urine, POC (test Negative code = 4636389) Internal QC (test code = 257) QC acceptable [facility] , [id number] 20:46:00 Test Item Value Reference Range Interpretation Comments test urine, POC (test Negative code = 4874244) Internal QC (test code = 257) QC acceptable [facility] , [id number] 20:46:00 Test Item Value Reference Range Interpretation Comments test urine, POC (test Negative code = 2325449) Internal QC (test code = 257) QC acceptable [facility] , [id number] 20:46:00 Test Item Value Reference Range Interpretation Comments test urine, POC (test Negative code = 1016007) Internal QC (test code = 257) QC acceptable [facility] , [id number] 20:46:00 Test Item Value Reference Range Interpretation Comments test urine, POC (test Negative code = 9982737) Internal QC (test code = 257) QC acceptable [facility] , [id number] 20:46:00 Test Item Value Reference Range Interpretation Comments test urine, POC (test Negative code = 7567529) Internal QC (test code = 257) QC acceptable [facility] , [id number] 20:46:00 Test Item Value Reference Range Interpretation Comments test urine, POC (test Negative code = 6066753) Internal QC (test code = 257) QC acceptable [address]2021-12-27 17:27:33 Test Item Value Reference Range [...] of 04-JUN-2021 18:19,-No significant change was found- [address]2021-12-27 17:27:33 Test Item Value Reference Range [...] of 04-JUN-2021 18:19,-No significant change was found- [address]2021-12-27 17:27:33 Test Item Value Reference Range [...] of 04-JUN-2021 18:19,-No significant change was found- [address]2021-12-27 17:27:33 Test Item Value Reference Range [...] of 04-JUN-2021 18:19,-No significant change was found- [address]2021-12-27 17:27:33 Test Item Value Reference Range [...] of 04-JUN-2021 18:19,-No significant change was found- [address]2021-12-27 17:27:33 Test Item Value Reference Range [...] of 04-JUN-2021 18:19,-No significant change was found- [address]2021-12-27 17:27:33 Test Item Value Reference Range [...] of 04-JUN-2021 18:19,-No significant change was found- [address]2021-12-27 17:27:33 Test Item Value Reference Range [...] of 04-JUN-2021 18:19,-No significant change was found- [address]2021-12-27 17:27:33 Test Item Value Reference Range [...] of 04-JUN-2021 18:19,-No significant change was found- [address]2021-12-27 17:27:33 Test Item Value Reference Range [...] of 04-JUN-2021 18:19,-No significant change was found- [address]2021-12-27 17:27:33 Test Item Value Reference Range [...] of 04-JUN-2021 18:,-No significant change was found- [address]2021-12-27 17:27:33 Test Item Value Reference Range [...] of 04-JUN-2021 18:19,-No significant change was found- [address]2021-12-27 17:27:33 Test Item Value Reference Range [...] of 04-JUN-2021 18:19,-No significant change was found- [facility] and adnfey3097-52-54 11:06:00 Test Item Value Reference Range Interpretation Comments ABO grouping (test code = 883-9) B Rh type (test code = 40718-1) POS Antibody screen (gel) (test code = NEG 890-4) [facility] and mutbow6952-14-05 11:06:00 Test Item Value Reference Range Interpretation Comments ABO grouping (test code = 883-9) B Rh type (test code = 40066-6) POS Antibody screen (gel) (test code = NEG 890-4) [facility] and mnyssw6080-35-86 11:06:00 Test Item Value Reference Range Interpretation Comments ABO grouping (test code = 883-9) B Rh type (test code = 68053-7) POS Antibody screen (gel) (test code = NEG 890-4) [facility] and exjedu9176-57-67 11:06:00 Test Item Value Reference Range Interpretation Comments ABO grouping (test code = 883-9) B Rh type (test code = 32122-8) POS Antibody screen (gel) (test code = NEG 890-4) [facility] and wmivqy2719-81-75 11:06:00 Test Item Value Reference Range Interpretation Comments ABO grouping (test code = 883-9) B Rh type (test code = 40925-4) POS Antibody screen (gel) (test code = NEG 890-4) [facility] and hcrkum2311-81-28 11:06:00 Test Item Value Reference Range Interpretation Comments ABO grouping (test code = 883-9) B Rh type (test code = 11686-9) POS Antibody screen (gel) (test code = NEG 890-4) [facility] and wsfoyh9698-63-71 11:06:00 Test Item Value Reference Range Interpretation Comments ABO grouping (test code = 883-9) B Rh type (test code = 32052-5) POS Antibody screen (gel) (test code = NEG 890-4) [facility] and xxbwfs3585-69-47 11:06:00 Test Item Value Reference Range Interpretation Comments ABO grouping (test code = 883-9) B Rh type (test code = 11274-7) POS Antibody screen (gel) (test code = NEG 890-4) [facility] and ayudpw6609-68-56 11:06:00 Test Item Value Reference Range Interpretation Comments ABO grouping (test code = 883-9) B Rh type (test code = 91417-7) POS Antibody screen (gel) (test code = NEG 890-4) [facility] and xfrvlu8517-10-91 11:06:00 Test Item Value Reference Range Interpretation Comments ABO grouping (test code = 883-9) B Rh type (test code = 49880-0) POS Antibody screen (gel) (test code = NEG 890-4) [facility] lkfylo1266-49-46 11:06:00 Test Item Value Reference Range Interpretation Comments ABO grouping (test code = 883-9) B Rh type (test code = 84858-2) POS Antibody screen (gel) (test code = NEG 890-4) [facility] seslwl0149-61-20 11:06:00 Test Item Value Reference Range Interpretation Comments ABO grouping (test code = 883-9) B Rh type (test code = 34228-2) POS Antibody screen (gel) (test code = NEG 890-4) [facility] gstqpo7622-43-87 11:06:00 Test Item Value Reference Range Interpretation Comments ABO grouping (test code = 883-9) B Rh type (test code = 84532-3) POS Antibody screen (gel) (test code = NEG 890-4) [facility] [Presence] in Respiratory specimen by EMANUEL with probe hylorvtol0068-14-13 19:37:44 Test Item Value Reference Range Interpretation Comments SARS-CoV-2 (COVID-19) RNA Not detected Not-Detected [Presence] in Respiratory specimen by EMANUEL with probe detection (test code = 63457-2) 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 (test code = 34307-0) Whether the patient has symptoms related to condition of interest (test code = 18237-8) Patient was hospitalized because of this condition (test code = 31237-7) Whether the patient was admitted to intensive care unit (ICU) for condition of interest (test code = 75383-6) Whether patient resides in a congregate care setting (test code = 65135-7) [facility] jdowytm7584-82-89 20:18:46 Test Item Value Reference Range Interpretation Comments Tissue culture No growth Specimen isolate (test after 3 days. InformationSp ecimen code = 14841-7) Source: Tiss ueSpecimen Site: Thigh: in fected right thigh wou nd [facility] uqwxvcy8236-81-99 20:18:46 Test Item Value Reference Range Interpretation Comments Tissue culture No growth Specimen isolate (test after 3 days. InformationSp ecimen code = 30681-7) Source: Tiss ueSpecimen Site: Thigh: in fected right thigh wou [facility] zihpkzn0047-51-05 20:18:46 Test Item Value Reference Range Interpretation Comments Tissue culture No growth Specimen isolate (test after 3 days. InformationSp ecimen code = 18721-7) Source: Tiss ueSpecimen Site: Thigh: in fected right thigh wou [facility]2021-12-24 20:18:46 Test Item Value Reference Range Interpretation Comments Tissue culture No growth Specimen isolate (test after 3 days. InformationSp ecimen code = 87300-0) Source: Tiss ueSpecimen Site: Thigh: in fected right thigh wou [facility]2021-12-24 20:18:46 Test Item Value Reference Range Interpretation Comments Tissue culture No growth Specimen isolate (test after 3 days. InformationSp ecimen code = 41915-3) Source: Tiss ueSpecimen Site: Thigh: in fected right thigh wou [facility]2021-12-24 20:18:46 Test Item Value Reference Range Interpretation Comments Tissue culture No growth Specimen isolate (test after 3 days. InformationSp ecimen code = 74419-9) Source: Tiss ueSpecimen Site: Thigh: in fected right thigh wou [facility]2021-12-24 20:18:46 Test Item Value Reference Range Interpretation Comments Tissue culture No growth Specimen isolate (test after 3 days. InformationSp ecimen code = 00417-9) Source: Tiss ueSpecimen Site: Thigh: in fected right thigh wou [facility]2021-12-24 20:18:46 Test Item Value Reference Range Interpretation Comments Tissue culture No growth Specimen isolate (test after 3 days. InformationSp ecimen code = 09671-1) Source: Tiss ueSpecimen Site: Thigh: in fected right thigh wou [facility] ndmpvui8403-34-54 20:18:46 Test Item Value Reference Range Interpretation Comments Tissue culture No growth Specimen isolate (test after 3 days. InformationSp ecimen code = 43193-1) Source: Tiss ueSpecimen Site: Thigh: in fected [facility] ctpfhjz4506[facility] 20:18:46 Test Item Value Reference Range Interpretation Comments Tissue culture No growth Specimen isolate (test after 3 days. InformationSp ecimen code = 03598-0) Source: Tiss ueSpecimen Site: Thigh: in fected right thigh [facility]ou nd [facility] oklqits4760-58-20 20:18:46 Test Item Value Reference Range Interpretation Comments Tissue culture No growth Specimen isolate (test after 3 days. InformationSp ecimen code = 82552-6) Source: Tiss ueSpecimen Site: Thigh: in fected right thigh wou [facility] xjkja4508-36-59 20:24:42 Test Item Value Reference Range Interpretation Comments AFB stain No acid fast Specimen (test code = bacilli (AFB) InformationSpe cimen 676-7) seen. Source: Drainag eSpecimen Site: Thigh: in fected wound right [facility] vcfks4049-10-11 20:24:42 Test Item Value Reference Range Interpretation Comments AFB stain No acid fast Specimen (test code = bacilli (AFB) InformationSpe cimen 676-7) seen. Source: Drainag eSpecimen Site: Thigh: [facility] soqhi5836-91-12 20:24:42 Test Item Value Reference Range Interpretation Comments AFB stain No acid fast Specimen (test code = bacilli (AFB) InformationSpe cimen 676-7) seen. Source: Drainag eSpecimen Site: Thigh: in fected wound right [facility] omuwl2009-20-32 20:24:42 Test Item Value Reference Range Interpretation Comments AFB stain No acid fast Specimen (test code = bacilli (AFB) InformationSpe cimen 676-7) seen. Source: Drainag eSpecimen Site: Thigh: in fected wound right [facility] rlljt1049-55-41 20:24:42 Test Item Value Reference Range Interpretation Comments AFB stain No acid fast Specimen (test code = bacilli (AFB) InformationSpe cimen 676-7) seen. Source: Drainag eSpecimen Site: Thigh: in fected wound right [facility] fhgyf6669-75-15 20:24:42 Test Item Value Reference Range Interpretation Comments AFB stain No acid fast Specimen (test code = bacilli (AFB) InformationSpe cimen 676-7) seen. Source: Drainag eSpecimen Site: Thigh: in fected wound right [facility] [id number] 20:24:42 Test Item Value Reference Range Interpretation Comments AFB stain No acid fast Specimen (test code = bacilli (AFB) InformationSpe cimen 676-7) seen. Source: Drainag eSpecimen Site: Thigh: in fected wound right [facility] gtnct4566-97-98 20:24:42 Test Item Value Reference Range Interpretation Comments AFB stain No acid fast Specimen (test code = bacilli (AFB) InformationSpe cimen 676-7) seen. Source: Drainag eSpecimen Site: Thigh: [facility]ect[facility] zntat0714-61-10 20:24:42 Test Item Value Reference Range Interpretation Comments AFB stain No acid fast Specimen (test code = bacilli (AFB) InformationSpe cimen 676-7) seen. Source: Drainag eSpecimen Site: Thigh: [facility]ect[facility] [id number] 20:24:42 Test Item Value Reference Range Interpretation Comments AFB stain No acid fast Specimen (test code = bacilli (AFB) InformationSpe cimen 676-7) seen. Source: Drainag eSpecimen Site: Thigh: in fected wound right [facility] [id number] 20:24:42 Test Item Value Reference Range Interpretation Comments AFB stain No acid fast Specimen (test code = bacilli (AFB) InformationSpe cimen 676-7) seen. Source: Drainag eSpecimen Site: Thigh: in fected wound right [facility] rqrkvjx3175-47-48 09:49:57 Test Item Value Reference Range Interpretation Comments Urine culture No growth Specimen isolate (test after 24 [facility]Spe [facility] code = 13231-3) hours Source: Urin eSpecimen Site: Clean cat [facility] eekzxgb7144-25-73 09:49:57 Test Item Value Reference Range Interpretation Comments Urine culture No growth Specimen isolate (test after 24 InformationSpe cimen code = 61397-3) hours Source: Urin eSpecimen Site: [facility]2021-12-20 09:49:57 Test Item Value Reference Range Interpretation Comments Urine culture No growth Specimen isolate (test after 24 InformationSpe cimen code = 47354-9) hours Source: Urin eSpecimen Site: [facility]2021-12-20 09:49:57 Test Item Value Reference Range Interpretation Comments Urine culture No growth Specimen isolate (test after 24 InformationSpe cimen code = 36039-9) hours Source: Urin eSpecimen Site: [facility]2021-12-20 09:49:57 Test Item Value Reference Range Interpretation Comments Urine culture No growth Specimen isolate (test after 24 InformationSpe cimen code = 40719-1) hours Source: Urin eSpecimen Site: [facility]2021-12-20 09:49:57 Test Item Value Reference Range Interpretation Comments Urine culture No growth Specimen isolate (test after 24 InformationSpe cimen code = 46698-6) hours Source: Urin eSpecimen Site: [facility] lujwpjs7534-60-91 09:49:57 Test Item Value Reference Range Interpretation Comments Urine culture No growth Specimen isolate (test after 24 InformationSpe cimen code = 18493-8) hours Source: Urin eSpecimen Site: [facility]2021-12-20 09:49:57 Test Item Value Reference Range Interpretation Comments Urine culture No growth Specimen isolate (test after 24 InformationSpe cimen code = 30325-9) hours Source: Urin eSpecimen Site: [facility]2021-12-20 09:49:57 Test Item Value Reference Range Interpretation Comments Urine culture No growth Specimen isolate (test after 24 InformationSpe cimen code = 46583-4) hours Source: Urin eSpecimen Site: [facility]2021-12-20 09:49:57 Test Item Value Reference Range Interpretation Comments Urine culture No growth Specimen isolate (test after 24 InformationSpe cimen code = 85252-5) hours Source: Urin eSpecimen Site: [facility]2021-12-20 09:49:57 Test Item Value Reference Range Interpretation Comments Urine culture No growth Specimen isolate (test after 24 [facility]Spe [facility] code = 05645-3) hours Source: Urin eSpecimen Site: [facility] otzjknnjyqau3851-70-40 12:52:00 Test Item Value Reference Range Interpretation Comments ABO grouping (test code = 883-9) B Rh type (test code = 04021-4) [facility] wzhypdhrtazs0365-11-89 12:52:00 Test Item Value Reference Range Interpretation Comments ABO grouping (test code = 883-9) B Rh type (test code = 19935-5) POS [facility] and Rh gjyrabtkswyv7820-46-25 12:52:00 Test Item Value Reference Range Interpretation Comments ABO grouping (test code = 883-9) B Rh type (test code = 25570-7) POS [facility] and Rh xvnknovitbrq2184-92-11 12:52:00 Test Item Value Reference Range Interpretation Comments ABO grouping (test code = 883-9) B Rh type (test code = 18940-5) POS [facility] and Rh lypzkoyfhvud2030-57-26 12:52:00 Test Item Value Reference Range Interpretation Comments ABO grouping (test code = 883-9) B Rh type (test code = 75091-6) POS [facility] and Rh rzfebfvlygzl5469-43-59 12:52:00 Test Item Value Reference Range Interpretation Comments ABO grouping (test code = 883-9) B Rh type (test code = 61021-7) [facility] qxxydswyzmja9805-96-38 12:52:00 Test Item Value Reference Range Interpretation Comments ABO grouping (test code = 883-9) B Rh type (test code = 76021-8) [facility] cfcalbywydzp7314-75-29 12:52:00 Test Item Value Reference Range Interpretation Comments ABO grouping (test code = 883-9) B Rh type (test code = 37883-8) [facility] rcxvjpuiuyxe9122-01-75 12:52:00 Test Item Value Reference Range Interpretation Comments ABO grouping (test code = 883-9) B Rh type (test code = 04377-4) [facility] sjyeqhlenbcs4791-88-52 12:52:00 Test Item Value Reference Range Interpretation Comments ABO grouping (test code = 883-9) B Rh type (test code = 78585-2) POS [facility] nbglxnhydjtb7796-11-22 12:52:00 Test Item Value Reference Range Interpretation Comments ABO grouping (test code = 883-9) B Rh type (test code = 14172-5) [facility] [Presence] in Respiratory specimen by EMANUEL with probe rrtsdkphj3573-78-00 03:04:32 Test Item Value Reference Range Interpretation Comments SARS-CoV-2 (COVID-19) RNA Not detected Not-Detected [Presence] in Respiratory specimen by EMANUEL with probe detection (test code = 75711-6) 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 (test code = 20911-4) Whether the patient has symptoms related to condition of interest (test code = 78662-8) Patient was hospitalized because of this condition (test code = 25056-5) Whether the patient was admitted to intensive care unit (ICU) for condition of interest (test code = 11074-4) Whether patient resides in a congregate care setting (test code = 63358-8) [facility], 1 Mealj4503-54-59 22:22:00 Test Item Value Reference Range Interpretation Comments Product name (test code Red Blood Cells -1, = 25) Leukored Unit number (test code = [id number]) Product code (test code I2236W84 = 3092) Dispense status (test Transfused code = 24) Blood expiration date (test code = 302) Blood type code (test code = 308) Blood type (test code = B POSITIVE 1314) Compatibility (test code Compatible = 6400) [facility], 1 Wkokf4977-18-95 22:22:00 Test Item Value Reference Range Interpretation Comments Product name (test code Red Blood Cells -1, = 25) Leukored Unit number (test code = [id number]) Product code (test code Y1863Z53 = 3092) Dispense status (test Transfused code = 24) Blood expiration date (test code = 302) Blood type code (test code = 308) Blood type (test code = B POSITIVE 1314) Compatibility (test code Compatible = 6400) [facility], 1 Xbcmq0496-83-66 22:22:00 Test Item Value Reference Range Interpretation Comments Product name (test code Red Blood Cells -1, = 25) Leukored Unit number (test code = [id number]) Product code (test code S2209J65 = 3092) Dispense status (test Transfused code = 24) Blood expiration date (test code = 302) Blood type code (test code = 308) Blood type (test code = B POSITIVE 1314) Compatibility (test code Compatible = 6400) [facility] RBC, 1 Rbupw3447-04-30 22:22:00 Test Item Value Reference Range Interpretation Comments Product name (test code Red Blood Cells -1, = 25) Leukored Unit number (test code = [id number]) Product code (test code F1930O10 = 3092) Dispense status (test Transfused code = 24) Blood expiration date (test code = 302) Blood type code (test code = 308) Blood type (test code = B POSITIVE 1314) Compatibility (test code Compatible = 6400) [facility] RBC, 1 Ezbbq2723-98-34 22:22:00 Test Item Value Reference Range Interpretation Comments Product name (test code Red Blood Cells -1, = 25) Leukored Unit number (test code = [id number]) Product code (test code C9738C33 = 3092) Dispense status (test Transfused code = 24) Blood expiration date (test code = 302) Blood type code (test code = 308) Blood type (test code = B POSITIVE 1314) Compatibility (test code Compatible = 6400) [facility], 1 Wkskn8113-58-17 22:22:00 Test Item Value Reference Range Interpretation Comments Product name (test code Red Blood Cells -1, = 25) Leukored Unit number (test code = [id number] [id number]) Product code (test code O1214X62 = 3092) Dispense status (test Transfused code = 24) Blood expiration date (test code = 302) Blood type code (test code = 308) Blood type (test code = B POSITIVE 1314) Compatibility (test code Compatible = 6400) [facility], 1 Cmsrd6351-86-61 22:22:00 Test Item Value Reference Range Interpretation Comments Product name (test code Red Blood Cells -1, = 25) Leukored Unit number (test code = [id number]) Product code (test code D7998S14 = 3092) Dispense status (test Transfused code = 24) Blood expiration date (test code = 302) Blood type code (test code = 308) Blood type (test code = B POSITIVE 1314) Compatibility (test code Compatible = 6400) [facility], 1 Fsebb6547-81-36 22:22:00 Test Item Value Reference Range Interpretation Comments Product name (test code Red Blood Cells -1, = 25) Leukored Unit number (test code = [id number]) Product code (test code W2723U32 = 3092) Dispense status (test Transfused code = 24) Blood expiration date (test code = 302) Blood type code (test code = 308) Blood type (test code = B POSITIVE 1314) Compatibility (test code Compatible = 6400) [facility] RBC, 1 Jeexs4468-83-41 22:22:00 Test Item Value Reference Range Interpretation Comments Product name (test code Red Blood Cells -1, = 25) Leukored Unit number (test code = [id number]) Product code (test code F4699J40 = 3092) Dispense status (test Transfused code = 24) Blood expiration date (test code = 302) Blood type code (test code = 308) Blood type (test code = B POSITIVE 1314) Compatibility (test code Compatible = 6400) [facility] RBC, 1 Kieai5570-06-03 22:22:00 Test Item Value Reference Range Interpretation Comments Product name (test code Red Blood Cells -1, = 25) Leukored Unit number (test code = [id number]) Product code (test code I1319F55 = 3092) Dispense status (test Transfused code = 24) Blood expiration date (test code = 302) Blood type code (test code = 308) Blood type (test code = B POSITIVE 1314) Compatibility (test code Compatible = 6400) [facility] pathology usmszts5547-01-08 20:10:46 Test Item Value Reference Range Interpretation Comments Case number (test code = [id number]) Surgical pathology See link below for report (test code = PDF Lab Report 2255) Result status (test code This is Final Report = [id number]) for [address] pathology bsppzti1353-61-22 20:10:46 Test Item Value Reference Range Interpretation Comments Case number (test code = [id number]) Surgical pathology See link below for report (test code = PDF Lab Report 2255) Result status (test code This is Final Report = [id number]) for [address] pathology wvqbkok9383-14-07 20:10:46 Test Item Value Reference Range Interpretation Comments Case number (test code = [id number]) Surgical pathology See link below for report (test code = PDF Lab Report 2255) Result status (test code This is Final Report = [id number]) for [address] pathology gboreta0494-06-09 20:10:46 Test Item Value Reference Range Interpretation Comments Case number (test code = [id number]) Surgical pathology See link below for report (test code = PDF Lab Report 2255) Result status (test code This is Final Report = [id number]) for [address] pathology yzuboyk6986-45-60 20:10:46 Test Item Value Reference Range Interpretation Comments Case number (test code = [id number]) Surgical pathology See link below for report (test code = PDF Lab Report 2255) Result status (test code This is Final Report = [id number]) for [address] pathology ryiaseo8348-89-71 20:10:46 Test Item Value Reference Range Interpretation Comments Case number (test code = [id number]) Surgical pathology See link below for report (test code = PDF Lab Report 2255) Result status (test code This is Final Report = [id number]) for [address] pathology uuehnme4906-05-01 20:10:46 Test Item Value Reference Range Interpretation Comments Case number (test code = [id number]) Surgical pathology See link below for report (test code = PDF Lab Report 2255) Result status (test code This is Final Report = [id number]) for [id number] [facility] pathology tugogfy4476-94-38 20:10:46 Test Item Value Reference Range Interpretation Comments Case number (test code = [id number]) Surgical pathology See link below for report (test code = PDF Lab Report 2255) Result status (test code This is Final Report = [id number]) for [id number] [facility] pathology hcmjalk1453-92-94 20:10:46 Test Item Value Reference Range Interpretation Comments Case number (test code = [id number]) Surgical pathology See link below for report (test code = PDF Lab Report 2255) Result status (test code This is Final Report = [id number]) for [address] pathology [id number] 20:10:46 Test Item Value Reference Range Interpretation Comments Case number (test code = [id number]) Surgical pathology See link below for report (test code = PDF Lab Report [id number]) Result status (test code This is Final Report = [id number]) for [id number] [facility] 1 [id number] 15:35:00 Test Item Value Reference Range Interpretation Comments Product name (test code Platele tAph LR, Path = 25) Red cont3 Unit number (test code = [id number]) Product code (test code O6076B59 = 3092) Dispense status (test Transfused code = 24) Blood expiration date (test code = 302) Blood type code (test code = 308) Blood type (test code = O POSITIVE 1314) Compatibility (test code Not required = 6400) [facility] [id number] 15:35:00 Test Item Value Reference Range Interpretation Comments Product name (test code Platele tAph LR, Path = 25) Red cont3 Unit number (test code = [id number]) Product code (test code P5238Z43 = 3092) Dispense status (test Transfused code = 24) Blood expiration date (test code = 302) Blood type code (test code = 308) Blood type (test code = O POSITIVE 1314) Compatibility (test code Not required = 6400) [facility] 1 [id number] 15:35:00 Test Item Value Reference Range Interpretation Comments Product name (test code Platerick Fraire LR, Path = 25) Red cont3 Unit number (test code = [id number]) Product code (test code Y3000N92 = 3092) Dispense status (test Transfused code = 24) Blood expiration date (test code = 302) Blood type code (test code = 308) Blood type (test code = O POSITIVE 1314) Compatibility (test code Not required = 6400) [facility] 1 [id number] 15:35:00 Test Item Value Reference Range Interpretation Comments Product name (test code Platerick Henley LR, Path = 25) Red cont3 Unit number (test code = [id number]) Product code (test code Y2147J64 = 3092) Dispense status (test Transfused code = 24) Blood expiration date (test code = 302) Blood type code (test code = 308) Blood type (test code = O POSITIVE 1314) Compatibility (test code Not required = 6400) [facility] 1 [id number] 15:35:00 Test Item Value Reference Range Interpretation Comments Product name (test code Platerick Henley LR, Path = 25) Red cont3 Unit number (test code = [id number] 2304130) Product code (test code L7455J73 = 3092) Dispense status (test Transfused code = 24) Blood expiration date (test code = 302) Blood type code (test code = 308) Blood type (test code = O POSITIVE 1314) Compatibility (test code Not required = 6400) [facility] 1 [id number] 15:35:00 Test Item Value Reference Range Interpretation Comments Product name (test code Platerick tAph LR, Path = 25) Red cont3 Unit number (test code = [id number]) Product code (test code J3884I27 = 3092) Dispense status (test Transfused code = 24) Blood expiration date (test code = 302) Blood type code (test code = 308) Blood type (test code = O POSITIVE 1314) Compatibility (test code Not required = 6400) [facility], 1 Sygcw2289-05-16 15:35:00 Test Item Value Reference Range Interpretation Comments Product name (test code Bogdan Fraire LR, Path = 25) Red cont3 Unit number (test code = [id number]) Product code (test code J1249A01 = 3092) Dispense status (test Transfused code = 24) Blood expiration date (test code = 302) Blood type code (test code = 308) Blood type (test code = O POSITIVE 1314) Compatibility (test code Not required = 6400) [facility], 1 [id number] 15:35:00 Test Item Value Reference Range Interpretation Comments Product name (test code Bogdan Henley LR, Path = 25) Red cont3 Unit number (test code = [id number] 5702676) Product code (test code Q1518K51 = 3092) Dispense status (test Transfused code = 24) Blood expiration date (test code = 302) Blood type code (test code = 308) Blood type (test code = O POSITIVE 1314) Compatibility (test code Not required = 6400) [facility] 1 [id number] 15:35:00 Test Item Value Reference Range Interpretation Comments Product name (test code Bogdan Henley LR, Path = 25) Red cont3 Unit number (test code = [id number] 2096330) Product code (test code Q8209N04 = 3092) Dispense status (test Transfused code = 24) Blood expiration date (test code = 302) Blood type code (test code = 308) Blood type (test code = O POSITIVE 1314) Compatibility (test code Not required = 6400) [facility], 1 [id number] 15:35:00 Test Item Value Reference Range Interpretation Comments Product name (test code Bogdan Henley LR, Path = 25) Red cont3 Unit number (test code = [id number] 5083679) Product code (test code S6756B30 = 3092) Dispense status (test Transfused code = 24) Blood expiration date (test code = 302) Blood type code (test code = 308) Blood type (test code = O POSITIVE 1314) Compatibility (test code Not required = 6400) [facility] [id number] 12:13:24 Test Item Value Reference Range Interpretation Comments Activated clotting time See_Comment H Oper ator Name: (test code = 5298) Bryn thorntoneaDevice ID: [id number] [Automated mess age] The system [employer] h generated this result transmitted ref erence range: 96 - 152 sec. The reference r leo was not used to interpret this result as normal/abnor mal. Lab Interpretation (test Abnormal code = 62105-0) [facility] [id number] 12:13:24 Test Item Value Reference Range Interpretation Comments Activated clotting time See_Comment H Oper ator Name: (test code = 5298) Bryn Denny eneaDevice ID: [id number] [Automated mess age] The system [employer] generated this result transmitted ref erence range: 96 - 152 sec. The reference r leo was not used to interpret this result as normal/abnor mal. Lab Interpretation (test Abnormal code = 41104-8) [facility] [id number] 12:13:24 Test Item Value Reference Range Interpretation Comments Activated clotting time See_Comment H Oper ator Name: (test code = 5298) Bryn Denny eneaDevice ID: [id number] [Automated mess age] The system [employer] h generated this result transmitted ref erence range: 96 - 152 sec. The reference r leo was not used to interpret this result as normal/abnor mal. Lab Interpretation (test Abnormal code = 88260-7) [facility] [id number] 12:13:24 Test Item Value Reference Range Interpretation Comments Activated clotting time See_Comment H Oper ator Name: (test code = 5298) Bryn R eneaDevice ID: [id number] [Automated mess age] The system [employer] h generated this result transmitted ref erence range: 96 - 152 sec. The reference r leo was not used to interpret this result as normal/abnor mal. Lab Interpretation (test Abnormal code = 40446-2) [facility] [id number] 12:13:24 Test Item Value Reference Range Interpretation Comments Activated clotting time See_Comment H Oper ator Name: (test code = 5298) Bryn Denny norbertoeaDevice ID: [id number] [Automated mess age] The system whic h generated this result transmitted ref erence range: 96 - 152 sec. The reference r leo was not used to interpret this result as normal/abnor mal. Lab Interpretation (test Abnormal code = 19682-1) [facility] [id number] 12:13:24 Test Item Value Reference Range Interpretation Comments Activated clotting time See_Comment H Oper ator Name: (test code = 5298) Bryn Denny eneaDevice ID: [id number] [Automated mess age] The system [employer] h generated this result transmitted ref erence range: 96 - 152 sec. The reference r leo was not used to interpret this result as normal/abnor mal. Lab Interpretation (test Abnormal code = 66883-7) [facility] [id number] 12:13:24 Test Item Value Reference Range Interpretation Comments Activated clotting time See_Comment H Oper ator Name: (test code = 5298) Bryn Denny norbertoeaDevice ID: [id number] [Automated mess age] The system [employer] h generated this result transmitted ref erence range: 96 - 152 sec. The reference r leo was not used to interpret this result as normal/abnor mal. Lab Interpretation (test Abnormal code = 04695-1) [facility] [id number] 12:13:24 Test Item Value Reference Range Interpretation Comments Activated clotting time See_Comment H Oper ator Name: (test code = 5298) Bryn Denny eneaDevice ID: [id number] [Automated mess age] The system whic h generated this result transmitted ref erence range: 96 - 152 sec. The reference r leo was not used to interpret this result as normal/abnor mal. Lab Interpretation (test Abnormal code = 03292-1) [facility] [id number] 12:13:24 Test Item Value Reference Range Interpretation Comments Activated clotting time See_Comment H Oper ator Name: (test code = 5298) Bryn sepulvedaDevice ID: [id number] [Automated mess age] The system [employer] generated this result transmitted ref erence range: 96 - 152 sec. The reference r leo was not used to interpret this result as normal/abnor mal. Lab Interpretation (test Abnormal code = 15649-3) [facility] clotting [id number] 12:13:24 Test Item Value Reference Range Interpretation Comments Activated clotting time See_Comment H Oper ator Name: (test code = 5298) Bryn Denny eneaDevice ID: [id number] [Automated mess age] The system [employer] generated this result transmitted ref erence range: 96 - 152 sec. The reference r leo was not used to interpret this result as normal/abnor mal. Lab Interpretation (test Abnormal code = 79188-9) [facility] [id number] 14:37:48 Test Item Value Reference Range Interpretation Comments POC sodium (test code = 138 mmol/L 332-913 2290-0) POC potassium (test 5.5 mmol/L 3.5-5 H code = 6298-4) POC glucose (test code 295 mg/dL 65-99 H = 2339-0) POC creatinine (test 5.3 mg/dl 0.5-0.9 H Operato r Name: Pugne code = 78365-6) Lisavice ID: [id number] POC hemoglobin (test 18.4 g/dL 12-16 H code = 718-7) POC hematocrit (test 54 % 37-47 H code = 4544-3) Lab Interpretation Abnormal (test code = 71194-5) [facility] [id number] 14:37:48 Test Item Value Reference Range Interpretation Comments POC sodium (test code = 138 mmol/L 103-290 5663-0) POC potassium (test 5.5 mmol/L 3.5-5 H code = 6298-4) POC glucose (test code 295 mg/dL 65-99 H = 2339-0) POC creatinine (test 5.3 mg/dl 0.5-0.9 H Operato r Name: Pugne code = 79098-6) Viridiana ID: [id number] POC hemoglobin (test 18.4 g/dL 12-16 H code = 718-7) POC hematocrit (test 54 % 37-47 H code = 4544-3) Lab Interpretation Abnormal (test code = 59661-3) [place] [id number] 14:37:48 Test Item Value Reference Range Interpretation Comments POC sodium (test code = 138 mmol/L 078-166 7823-0) POC potassium (test 5.5 mmol/L 3.5-5 H code = 6298-4) POC glucose (test code 295 mg/dL 65-99 H = 2339-0) POC creatinine (test 5.3 mg/dl 0.5-0.9 H Operato r Name: Pat code = 45380-5) [place] ID: [id number] POC hemoglobin (test 18.4 g/dL 12-16 H code = 718-7) POC hematocrit (test 54 % 37-47 H code = 4544-3) Lab Interpretation Abnormal (test code = 54766-6) [facility]2021-11-29 14:37:48 Test Item Value Reference Range Interpretation Comments POC sodium (test code = 138 mmol/L 533-034 7776-0) POC potassium (test 5.5 mmol/L 3.5-5 H code = 6298-4) POC glucose (test code 295 mg/dL 65-99 H = 2339-0) POC creatinine (test 5.3 mg/dl 0.5-0.9 H Operato r Name: Pat code = 61761-1) AilBharat ID: [id number] POC hemoglobin (test 18.4 g/dL 12-16 H code = 718-7) POC hematocrit (test 54 % 37-47 H code = 4544-3) Lab Interpretation Abnormal (test code = 72372-4) [facility]2021-11-29 14:37:48 Test Item Value Reference Range Interpretation Comments POC sodium (test code = 138 mmol/L 956-252 6096-0) POC potassium (test 5.5 mmol/L 3.5-5 H code = 6298-4) POC glucose (test code 295 mg/dL 65-99 H = 2339-0) POC creatinine (test 5.3 mg/dl 0.5-0.9 H Operato r Name: Carminagne code = 88292-9) AileenDevice ID: [id number] POC hemoglobin (test 18.4 g/dL 12-16 H code = 718-7) POC hematocrit (test 54 % 37-47 H code = 4544-3) Lab Interpretation Abnormal (test code = 83401-4) [facility]2021-11-29 14:37:48 Test Item Value Reference Range Interpretation Comments POC sodium (test code = 138 mmol/L 271-676 1893-0) POC potassium (test 5.5 mmol/L 3.5-5.0 H code = 6298-4) POC glucose (test code 295 mg/dL 65-99 H = 2339-0) POC creatinine (test 5.3 mg/dl 0.5-0.9 H Operato r Name: Johannae code = 43198-6) AiljoshDevice ID: [id number] POC hemoglobin (test 18.4 g/dL 12.0-16.0 H code = 718-7) POC hematocrit (test 54 % 37-47 H code = 4544-3) Lab Interpretation Abnormal (test code = 26465-1) [facility]2021-11-29 14:37:48 Test Item Value Reference Range Interpretation Comments POC sodium (test code = 138 mmol/L 265-981 4191-0) POC potassium (test 5.5 mmol/L 3.5-5.0 H code = 6298-4) POC glucose (test code 295 mg/dL 65-99 H = 2339-0) POC creatinine (test 5.3 mg/dl 0.5-0.9 H Operato r Name: Johannae code = 01091-7) AileenDevice ID: [id number] POC hemoglobin (test 18.4 g/dL 12.0-16.0 H code = 718-7) POC hematocrit (test 54 % 37-47 H code = 4544-3) Lab Interpretation Abnormal (test code = 60001-4) [facility]2021-11-29 14:37:48 Test Item Value Reference Range Interpretation Comments POC sodium (test code = 138 mmol/L 524-460 7276-0) POC potassium (test 5.5 mmol/L 3.5-5 H code = 6298-4) POC glucose (test code 295 mg/dL 65-99 H = 2339-0) POC creatinine (test 5.3 mg/dl 0.5-0.9 H Operato r Name: Pugne code = 74968-7) AileenDevice ID: [id number] POC hemoglobin (test 18.4 g/dL 12-16 H code = 718-7) POC hematocrit (test 54 % 37-47 H code = 4544-3) Lab Interpretation Abnormal (test code = 53308-8) [facility]2021-11-29 14:37:48 Test Item Value Reference Range Interpretation Comments POC sodium (test code = 138 mmol/L 867-924 9703-0) POC potassium (test 5.5 mmol/L 3.5-5 H code = 6298-4) POC glucose (test code 295 mg/dL 65-99 H = 2339-0) POC creatinine (test 5.3 mg/dl 0.5-0.9 H Operato r Name: Pugne code = 31870-6) AileenDevice ID: [id number] POC hemoglobin (test 18.4 g/dL 12-16 H code = 718-7) POC hematocrit (test 54 % 37-47 H code = 4544-3) Lab Interpretation Abnormal (test code = 41540-9) [facility]2021-11-29 14:37:48 Test Item Value Reference Range Interpretation Comments POC sodium (test code = 138 mmol/L 953-035 8193-0) POC potassium (test 5.5 mmol/L 3.5-5 H code = 6298-4) POC glucose (test code 295 mg/dL 65-99 H = 2339-0) POC creatinine (test 5.3 mg/dl 0.5-0.9 H Operato r Name: Pugne code = 28122-8) AileenDevice ID: [id number] POC hemoglobin (test 18.4 g/dL 12-16 H code = 718-7) POC hematocrit (test 54 % 37-47 H code = 4544-3) Lab Interpretation Abnormal (test code = 85042-0) [facility] NibbpnvaLESK-EeW-2 (COVID-19) RNA [Presence] in Respiratory specimen by EMANUEL with probe liieukpol2385-51-28 07:53:49 Test Item Value Reference Range Interpretation Comments SARS-CoV-2 (COVID-19) RNA Not detected Not-Detected [Presence] in Respiratory specimen by EMANUEL with probe detection (test code = 49904-1) 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 (test code = 72024-5) Whether the patient has symptoms related to condition of interest (test code = 00902-1) Patient was hospitalized because of this condition (test code = 49965-1) Whether the patient was admitted to intensive care unit (ICU) for condition of interest (test code = 93743-1) Whether patient resides in a congregate care setting (test code = 87329-4) [facility]2021-08-11 08:17:00 Test Item Value Reference Range Interpretation Comments Glucose Lvl (test code = Glucose Lvl) 94 70-99 [facility]2021-08-11 08:17:00 Test Item Value Reference Range Interpretation Comments BUN (test code = BUN) 27 7-22 [facility]2021-08-11 08:17:00 Test Item Value Reference Range Interpretation Comments Creatinine Lvl (test code = Creatinine 4.95 0.50-1.40 Lvl) [facility]2021-08-11 08:17:00 Test Item Value Reference Range Interpretation Comments Sodium Lvl (test code = Sodium Lvl) 136 135-145 [place] 469941-08-11 08:17:00 Test Item Value Reference Range Interpretation Comments Potassium Lvl (test code = Potassium 3.9 3.5-5.1 Lvl) [place] 469941-08-11 08:17:00 Test Item Value Reference Range Interpretation Comments Chloride Lvl (test code = Chloride Lvl) 103 95-109 [place] 469941-08-11 08:17:00 Test Item Value Reference Range Interpretation Comments CO2 (test code = CO2) 30 24-32 [place] 469941-08-11 08:17:00 Test Item Value Reference Range Interpretation Comments AGAP (test code = AGAP) 6.9 10.0-20.0 [place] 469941-08-11 08:17:00 Test Item Value Reference Range Interpretation Comments Calcium Lvl (test code = Calcium Lvl) 8.5 8.5-10.5 [place] 469941-08-11 08:17:00 Test Item Value Reference Range Interpretation Comments eGFR (test code = eGFR) 10 [place] 377[address]-08-11 08:17:00 Test Item Value Reference Range Interpretation Comments Phosphorus (test code = Phosphorus) 3.0 2.5-4.5 [place] 469941-08-11 08:17:00 Test Item Value Reference Range Interpretation Comments Magnesium Lvl (test code = Magnesium 2.4 1.8-2.4 Lvl) [place] [address]-08-11 08:17:00 Test Item Value Reference Range Interpretation Comments WBC (test code = WBC) 2.3 3.7-10.4 [place] 948411-08-11 08:17:00 Test Item Value Reference Range Interpretation Comments RBC (test code = RBC) 2.65 4.20-5.40 [place] [address]-08-11 08:17:00 Test Item Value Reference Range Interpretation Comments Hgb (test code = Hgb) 7.9 12.0-16.0 [place] [address]-08-11 08:17:00 Test Item Value Reference Range Interpretation Comments Hct (test code = Hct) 24.0 36.0-48.0 [place] [address]-08-11 08:17:00 Test Item Value Reference Range Interpretation Comments MCV (test code = MCV) 90.6 80.0-98.0 [place] [address]-08-11 08:17:00 Test Item Value Reference Range Interpretation Comments MCH (test code = MCH) 29.7 pg 27.0-31.0 [place] [address]-08-11 08:17:00 Test Item Value Reference Range Interpretation Comments MCHC (test code = MCHC) 32.7 32.0-36.0 [place] 948411-08-11 08:17:00 Test Item Value Reference Range Interpretation Comments RDW (test code = RDW) 19.1 11.5-14.5 [place] 948411-08-11 08:17:00 Test Item Value Reference Range Interpretation Comments Platelet (test code = Platelet) 71 133-450 [facility]akvjutLNWLLKGBXO7613[facility]68-33 08:17:00 Test Item Value Reference Range Interpretation Comments MPV (test code = MPV) 9.9 7.4-10.4 [facility] CenterWsmtmkpOMLPAAKPYC9747-73-11 08:17:00 Test Item Value Reference Range Interpretation Comments Segs (test code = Segs) 56.1 45.0-75.0 [facility] CenterBltgpeoJRDSUGQJLL1289-39-79 08:17:00 Test Item Value Reference Range Interpretation Comments Lymphocytes (test code = Lymphocytes) 28.9 20.0-40.0 [facility] CenterUzacwgjRPEFQOVUCG7827-93-54 08:17:00 Test Item Value Reference Range Interpretation Comments Monocytes (test code = Monocytes) 8.1 2.0-12.0 [facility] CenterFnoceuyPEARTKQQVO4337-16-70 08:17:00 Test Item Value Reference Range Interpretation Comments Eosinophils (test code = 5.9 See_Comment [A utomated message] The Eosinophils) system which ge nerated this result tra nsmitted reference range : <=4.0. The reference r leo was not used to int erpret this result as normal/abnormal . [facility] CenterHefvyjbDBEOBOHBVP6792-64-66 08:17:00 Test Item Value Reference Range Interpretation Comments Basophils (test code = 1.0 See_Comment [Aut omated message] The Basophils) system which ge nerated this result tra nsmitted reference range : <=1.0. The reference r leo was not used to int erpret this result as normal/abnormal . [facility] CenterEjonwwwBHUKYFCITM0249-45-02 08:17:00 Test Item Value Reference Range Interpretation Comments Neutrophils # (test code = Neutrophils 1.3 1.5-8.1 #) [facility] CenterZqzxfleTFXQNSAMOB0772-59-94 08:17:00 Test Item Value Reference Range Interpretation Comments Lymphocytes # (test code = Lymphocytes 0.7 1.0-5.5 #) [facility] CenterNuemcgyNISICRKBHD5273-19-06 08:17:00 Test Item Value Reference Range Interpretation Comments Monocytes # (test code 0.2 See_Comment [Aut omated message] The = Monocytes #) system which generated this result tra nsmitted reference range : <=0.8. The reference r leo was not used to int erpret this result as normal/abnormal . [place] 948411-08-11 08:17:00 Test Item Value Reference Range Interpretation Comments Eosinophils # (test code 0.1 See_Comment [A utomated message] The = Eosinophils #) system [employer] generated this result tra nsmitted reference range : <=0.5. The reference r leo was not used to int erpret this result as normal/abnormal . [place] 469941-08-11 08:17:00 Test Item Value Reference Range Interpretation Comments Glucose Lvl (test code = Glucose Lvl) 94 70-99 [place] 469941-08-11 08:17:00 Test Item Value Reference Range Interpretation Comments BUN (test code = BUN) 27 7-22 [place] 469941-08-11 08:17:00 Test Item Value Reference Range Interpretation Comments Creatinine Lvl (test code = Creatinine 4.95 0.50-1.40 Lvl) [place] 469941-08-11 08:17:00 Test Item Value Reference Range Interpretation Comments Sodium Lvl (test code = Sodium Lvl) 136 135-145 [place] 469941-08-11 08:17:00 Test Item Value Reference Range Interpretation Comments Potassium Lvl (test code = Potassium 3.9 3.5-5.1 Lvl) [place] 469941-08-11 08:17:00 Test Item Value Reference Range Interpretation Comments Chloride Lvl (test code = Chloride Lvl) 103 95-109 [place] 469941-08-11 08:17:00 Test Item Value Reference Range Interpretation Comments CO2 (test code = CO2) 30 24-32 [place] 469941-08-11 08:17:00 Test Item Value Reference Range Interpretation Comments AGAP (test code = AGAP) 6.9 10.0-20.0 [place] 469941-08-11 08:17:00 Test Item Value Reference Range Interpretation Comments Calcium Lvl (test code = Calcium Lvl) 8.5 8.5-10.5 [place] 469941-08-11 08:17:00 Test Item Value Reference Range Interpretation Comments eGFR (test code = eGFR) 10 [place] 469941-08-11 08:17:00 Test Item Value Reference Range Interpretation Comments Phosphorus (test code = Phosphorus) 3.0 2.5-4.5 [facility] ZJVNO3834-53-58 08:17:00 Test Item Value Reference Range Interpretation Comments Magnesium Lvl (test code = Magnesium 2.4 1.8-2.4 Lvl) [facility] CenterHcmodriLZKMLIXHQI1066-11-34 08:17:00 Test Item Value Reference Range Interpretation Comments WBC (test code = WBC) 2.3 3.7-10.4 [facility] CenterAasqykoDQFHPJLTER8766-93-89 08:17:00 Test Item Value Reference Range Interpretation Comments RBC (test code = RBC) 2.65 4.20-5.40 [facility] CenterBebibdmMPOMTJQJHI9357-97-20 08:17:00 Test Item Value Reference Range Interpretation Comments Hgb (test code = Hgb) 7.9 12.0-16.0 [facility] CenterPminencBHVMUSJJZS6869-47-99 08:17:00 Test Item Value Reference Range Interpretation Comments Hct (test code = Hct) 24.0 36.0-48.0 [facility] CenterOpkrrvqBQVNHEVNFT7016-14-45 08:17:00 Test Item Value Reference Range Interpretation Comments MCV (test code = MCV) 90.6 80.0-98.0 [facility] CenterDjwhjalEJKVOSQVOF8241-79-56 08:17:00 Test Item Value Reference Range Interpretation Comments MCH (test code = MCH) 29.7 pg 27.0-31.0 [facility] CenterBarrxarXQFIIRKSFN4744-47-06 08:17:00 Test Item Value Reference Range Interpretation Comments MCHC (test code = MCHC) 32.7 32.0-36.0 [facility] CenterTxepfmtZFWWZKBTWU9381-89-70 08:17:00 Test Item Value Reference Range Interpretation Comments RDW (test code = RDW) 19.1 11.5-14.5 [place] 948411-08-11 08:17:00 Test Item Value Reference Range Interpretation Comments Platelet (test code = Platelet) 71 133-450 [facility]KjwejwoEHIVYINJJP4676-20-97 08:17:00 Test Item Value Reference Range Interpretation Comments MPV (test code = MPV) 9.9 7.4-10.4 [facility]XdwexmsKGFKABUSDV0896-87-24 08:17:00 Test Item Value Reference Range Interpretation Comments Segs (test code = Segs) 56.1 45.0-75.0 [place] 948411-08-11 08:17:00 Test Item Value Reference Range Interpretation Comments Lymphocytes (test code = Lymphocytes) 28.9 20.0-40.0 [facility] CenterAwpfjsxCEQGYYFZEP4343-05-90 08:17:00 Test Item Value Reference Range Interpretation Comments Monocytes (test code = Monocytes) 8.1 2.0-12.0 [place] 948411-08-11 08:17:00 Test Item Value Reference Range Interpretation Comments Eosinophils (test code = 5.9 See_Comment [A utomated message] The Eosinophils) system which ge nerated this result tra nsmitted reference range : <=4.0. The reference r leo was not used to int erpret this result as normal/abnormal . [facility] CenterPkpbsvlFOVLIQCXOC4290-51-20 08:17:00 Test Item Value Reference Range Interpretation Comments Basophils (test code = 1.0 See_Comment [Aut omated message] The Basophils) system which ge nerated this result tra nsmitted reference range : <=1.0. The reference r leo was not used to int erpret this result as normal/abnormal . [facility] CenterLltihgfHTVTGCZCGS2573-58-18 08:17:00 Test Item Value Reference Range Interpretation Comments Neutrophils # (test code = Neutrophils 1.3 1.5-8.1 #) [facility] CenterNulmbcuWLTHOXQWVN0219-56-85 08:17:00 Test Item Value Reference Range Interpretation Comments Lymphocytes # (test code = Lymphocytes 0.7 1.0-5.5 #) [facility] CenterFlsfzqhGFHYYYHKTS7523-90-68 08:17:00 Test Item Value Reference Range Interpretation Comments Monocytes # (test code 0.2 See_Comment [Aut omated message] The = Monocytes #) system which generated this result tra nsmitted reference range : <=0.8. The reference r leo was not used to int erpret this result as normal/abnormal . [facility] CenterLktepviWGAYIQSZGB9289-02-43 08:17:00 Test Item Value Reference Range Interpretation Comments Eosinophils # (test code 0.1 See_Comment [A utomated message] The = Eosinophils #) system whic h generated this result tra nsmitted reference range : <=0.5. The reference r leo was not used to int erpret this result as normal/abnormal . [place] 469941-08-11 08:17:00 Test Item Value Reference Range Interpretation Comments Glucose Lvl (test code = Glucose Lvl) 94 70-99 [place] 469941-08-11 08:17:00 Test Item Value Reference Range Interpretation Comments BUN (test code = BUN) 27 7-22 [place] 469941-08-11 08:17:00 Test Item Value Reference Range Interpretation Comments Creatinine Lvl (test code = Creatinine 4.95 0.50-1.40 Lvl) [place] 469941-08-11 08:17:00 Test Item Value Reference Range Interpretation Comments Sodium Lvl (test code = Sodium Lvl) 136 135-145 [place] 469941-08-11 08:17:00 Test Item Value Reference Range Interpretation Comments Potassium Lvl (test code = Potassium 3.9 3.5-5.1 Lvl) [place] 469941-08-11 08:17:00 Test Item Value Reference Range Interpretation Comments Chloride Lvl (test code = Chloride Lvl) 103 95-109 [place] 469941-08-11 08:17:00 Test Item Value Reference Range Interpretation Comments CO2 (test code = CO2) 30 24-32 [place] 469941-08-11 08:17:00 Test Item Value Reference Range Interpretation Comments AGAP (test code = AGAP) 6.9 10.0-20.0 [place] 469941-08-11 08:17:00 Test Item Value Reference Range Interpretation Comments Calcium Lvl (test code = Calcium Lvl) 8.5 8.5-10.5 [place] 469941-08-11 08:17:00 Test Item Value Reference Range Interpretation Comments eGFR (test code = eGFR) 10 [place] 469941-08-11 08:17:00 Test Item Value Reference Range Interpretation Comments Phosphorus (test code = Phosphorus) 3.0 2.5-4.5 [place] 469941-08-11 08:17:00 Test Item Value Reference Range Interpretation Comments Magnesium Lvl (test code = Magnesium 2.4 1.8-2.4 Lvl) [facility]379[facility] 08:17:00 Test Item Value Reference Range Interpretation Comments WBC (test code = WBC) 2.3 3.7-10.4 [facility] CenterKfmmdulQZCIXHIDIR2995-37-36 08:17:00 Test Item Value Reference Range Interpretation Comments RBC (test code = RBC) 2.65 4.20-5.40 [facility] CenterOoijkkzNCBOJKEWRC8693-94-55 08:17:00 Test Item Value Reference Range Interpretation Comments Hgb (test code = Hgb) 7.9 12.0-16.0 [facility] CenterCcvbpqdZLQFWIMJGG8668-76-27 08:17:00 Test Item Value Reference Range Interpretation Comments Hct (test code = Hct) 24.0 36.0-48.0 [facility] CenterExodswjNDDPYBIZHA5932-07-25 08:17:00 Test Item Value Reference Range Interpretation Comments MCV (test code = MCV) 90.6 80.0-98.0 [facility] CenterQdyukhfKRIXIOQDLM0612-73-82 08:17:00 Test Item Value Reference Range Interpretation Comments MCH (test code = MCH) 29.7 pg 27.0-31.0 [facility] CenterBcfaahrMNSRJHSLDM8002-86-05 08:17:00 Test Item Value Reference Range Interpretation Comments MCHC (test code = MCHC) 32.7 32.0-36.0 [facility] CenterZqgoajbPKWAFOFQTB2533-95-68 08:17:00 Test Item Value Reference Range Interpretation Comments RDW (test code = RDW) 19.1 11.5-14.5 [facility] CenterPdbdozuIUHUFGNGUH2399-99-23 08:17:00 Test Item Value Reference Range Interpretation Comments Platelet (test code = Platelet) 71 133-450 [facility] CenterWzhyzctYLSZQCAHXW9183-03-08 08:17:00 Test Item Value Reference Range Interpretation Comments MPV (test code = MPV) 9.9 7.4-10.4 [facility] CenterNmfzjolAIBFGJSIKO2970-40-79 08:17:00 Test Item Value Reference Range Interpretation Comments Segs (test code = Segs) 56.1 45.0-75.0 [facility] CenterMdqzquvCDKADKGFVM1150-70-74 08:17:00 Test Item Value Reference Range Interpretation Comments Lymphocytes (test code = Lymphocytes) 28.9 20.0-40.0 [facility] CenterNcoitdgLPWKYOARJI1899-26-81 08:17:00 Test Item Value Reference Range Interpretation Comments Monocytes (test code = Monocytes) 8.1 2.0-12.0 [facility] CenterMwgnuptMIOMYSCHUG7735-26-66 08:17:00 Test Item Value Reference Range Interpretation Comments Eosinophils (test code = 5.9 See_Comment [A utomated message] The Eosinophils) system which ge nerated this result tra nsmitted reference range : <=4.0. The reference r leo was not used to int erpret this result as normal/abnormal . [place] 948411-08-11 08:17:00 Test Item Value Reference Range Interpretation Comments Basophils (test code = 1.0 See_Comment [Aut omated message] The Basophils) system which ge nerated this result tra nsmitted reference range : <=1.0. The reference r leo was not used to int erpret this result as normal/abnormal . [place] 948411-08-11 08:17:00 Test Item Value Reference Range Interpretation Comments Neutrophils # (test code = Neutrophils 1.3 1.5-8.1 #) [place] 948411-08-11 08:17:00 Test Item Value Reference Range Interpretation Comments Lymphocytes # (test code = Lymphocytes 0.7 1.0-5.5 #) [place] 948411-08-11 08:17:00 Test Item Value Reference Range Interpretation Comments Monocytes # (test code 0.2 See_Comment [Aut omated message] The = Monocytes #) system which generated this result tra nsmitted reference range : <=0.8. The reference r leo was not used to int erpret this result as normal/abnormal . [place] 948411-08-11 08:17:00 Test Item Value Reference Range Interpretation Comments Eosinophils # (test code 0.1 See_Comment [A utomated message] The = Eosinophils #) system whic h generated this result tra nsmitted reference range : <=0.5. The reference r leo was not used to int erpret this result as normal/abnormal . [place] 469941-08-11 08:17:00 Test Item Value Reference Range Interpretation Comments Glucose Lvl (test code = Glucose Lvl) 94 70-99 [place] 469941-08-11 08:17:00 Test Item Value Reference Range Interpretation Comments BUN (test code = BUN) 27 7-22 [place] 469941-08-11 08:17:00 Test Item Value Reference Range Interpretation Comments Creatinine Lvl (test code = Creatinine 4.95 0.50-1.40 Lvl) [place] 469941-08-11 08:17:00 Test Item Value Reference Range Interpretation Comments Sodium Lvl (test code = Sodium Lvl) 136 135-145 [place] 469941-08-11 08:17:00 Test Item Value Reference Range Interpretation Comments Potassium Lvl (test code = Potassium 3.9 3.5-5.1 Lvl) [place] 469941-08-11 08:17:00 Test Item Value Reference Range Interpretation Comments Chloride Lvl (test code = Chloride Lvl) 103 95-109 [place] 469941-08-11 08:17:00 Test Item Value Reference Range Interpretation Comments CO2 (test code = CO2) 30 24-32 [place] 469941-08-11 08:17:00 Test Item Value Reference Range Interpretation Comments AGAP (test code = AGAP) 6.9 10.0-20.0 [place] 469941-08-11 08:17:00 Test Item Value Reference Range Interpretation Comments Calcium Lvl (test code = Calcium Lvl) 8.5 8.5-10.5 [place] 469941-08-11 08:17:00 Test Item Value Reference Range Interpretation Comments eGFR (test code = eGFR) 10 [place] 469941-08-11 08:17:00 Test Item Value Reference Range Interpretation Comments Phosphorus (test code = Phosphorus) 3.0 2.5-4.5 [place] 469941-08-11 08:17:00 Test Item Value Reference Range Interpretation Comments Magnesium Lvl (test code = Magnesium 2.4 1.8-2.4 Lvl) [place] 948411-08-11 08:17:00 Test Item Value Reference Range Interpretation Comments WBC (test code = WBC) 2.3 3.7-10.4 [place] 948411-08-11 08:17:00 Test Item Value Reference Range Interpretation Comments RBC (test code = RBC) 2.65 4.20-5.40 [place] 948411-08-11 08:17:00 Test Item Value Reference Range Interpretation Comments Hgb (test code = Hgb) 7.9 12.0-16.0 [place] [address]-08-11 08:17:00 Test Item Value Reference Range Interpretation Comments Hct (test code = Hct) 24.0 36.0-48.0 [facility] CenterPbbfeobBKDZDYHDGY2070-13-86 08:17:00 Test Item Value Reference Range Interpretation Comments MCV (test code = MCV) 90.6 80.0-98.0 [facility] CenterBdnruohGKWHACIUUN1542-45-17 08:17:00 Test Item Value Reference Range Interpretation Comments MCH (test code = MCH) 29.7 pg 27.0-31.0 [facility] CenterHtvfthxPELZEEDCQH5828-31-43 08:17:00 Test Item Value Reference Range Interpretation Comments MCHC (test code = MCHC) 32.7 32.0-36.0 [facility] CenterAqahwteXFLWTRAAIV7107-05-93 08:17:00 Test Item Value Reference Range Interpretation Comments RDW (test code = RDW) 19.1 11.5-14.5 [facility] CenterUckpsydUQAUGDYESI3456-43-79 08:17:00 Test Item Value Reference Range Interpretation Comments Platelet (test code = Platelet) 71 133-450 [facility] CenterQftuwrbVLIUYFSKYM4036-23-47 08:17:00 Test Item Value Reference Range Interpretation Comments MPV (test code = MPV) 9.9 7.4-10.4 [facility] CenterGnckciyCBMNKBFHDZ7603-00-02 08:17:00 Test Item Value Reference Range Interpretation Comments Segs (test code = Segs) 56.1 45.0-75.0 [facility] CenterXuglzmzUOJMYSTQKR3860-73-77 08:17:00 Test Item Value Reference Range Interpretation Comments Lymphocytes (test code = Lymphocytes) 28.9 20.0-40.0 [facility] CenterViyaumrQTUJFNJAHP2583-97-22 08:17:00 Test Item Value Reference Range Interpretation Comments Monocytes (test code = Monocytes) 8.1 2.0-12.0 [place] 948411-08-11 08:17:00 Test Item Value Reference Range Interpretation Comments Eosinophils (test code = 5.9 See_Comment [A utomated message] The Eosinophils) system which ge nerated this result tra nsmitted reference range : <=4.0. The reference r leo was not used to int erpret this result as normal/abnormal . [facility] CenterGxtnxumWQSTLEVVKQ3294-55-12 08:17:00 Test Item Value Reference Range Interpretation Comments Basophils (test code = 1.0 See_Comment [Aut omated message] The Basophils) system which ge nerated this result tra nsmitted reference range : <=1.0. The reference r leo was not used to int erpret this result as normal/abnormal . [place] 948411-08-11 08:17:00 Test Item Value Reference Range Interpretation Comments Neutrophils # (test code = Neutrophils 1.3 1.5-8.1 #) [place] 948411-08-11 08:17:00 Test Item Value Reference Range Interpretation Comments Lymphocytes # (test code = Lymphocytes 0.7 1.0-5.5 #) [place] 948411-08-11 08:17:00 Test Item Value Reference Range Interpretation Comments Monocytes # (test code 0.2 See_Comment [Aut omated message] The = Monocytes #) system which generated this result tra nsmitted reference range : <=0.8. The reference r leo was not used to int erpret this result as normal/abnormal . [place] 948411-08-11 08:17:00 Test Item Value Reference Range Interpretation Comments Eosinophils # (test code 0.1 See_Comment [A utomated message] The = Eosinophils #) system whic h generated this result tra nsmitted reference range : <=0.5. The reference r leo was not used to int erpret this result as normal/abnormal . [facility]2021-08-11 08:17:00 Test Item Value Reference Range Interpretation Comments Glucose Lvl (test code = Glucose Lvl) 94 70-99 [facility] CYERU0548-44-11 08:17:00 Test Item Value Reference Range Interpretation Comments BUN (test code = BUN) 27 7-22 [facility] PHNQQ4720-79-68 08:17:00 Test Item Value Reference Range Interpretation Comments Creatinine Lvl (test code = Creatinine 4.95 0.50-1.40 Lvl) [place] 469941-08-11 08:17:00 Test Item Value Reference Range Interpretation Comments Sodium Lvl (test code = Sodium Lvl) 136 135-145 [facility] JTMIN1937-69-37 08:17:00 Test Item Value Reference Range Interpretation Comments Potassium Lvl (test code = Potassium 3.9 3.5-5.1 Lvl) [place] 469941-08-11 08:17:00 Test Item Value Reference Range Interpretation Comments Chloride Lvl (test code = Chloride Lvl) 103 95-109 [place] 469941-08-11 08:17:00 Test Item Value Reference Range Interpretation Comments CO2 (test code = CO2) 30 24-32 [place] [address]-08-11 08:17:00 Test Item Value Reference Range Interpretation Comments AGAP (test code = AGAP) 6.9 10.0-20.0 [place] [address]-08-11 08:17:00 Test Item Value Reference Range Interpretation Comments Calcium Lvl (test code = Calcium Lvl) 8.5 8.5-10.5 [place] 469941-08-11 08:17:00 Test Item Value Reference Range Interpretation Comments eGFR (test code = eGFR) 10 [place] 469941-08-11 08:17:00 Test Item Value Reference Range Interpretation Comments Phosphorus (test code = Phosphorus) 3.0 2.5-4.5 [place] 469941-08-11 08:17:00 Test Item Value Reference Range Interpretation Comments Magnesium Lvl (test code = Magnesium 2.4 1.8-2.4 Lvl) [place] 948411-08-11 08:17:00 Test Item Value Reference Range Interpretation Comments WBC (test code = WBC) 2.3 3.7-10.4 [place] 948411-08-11 08:17:00 Test Item Value Reference Range Interpretation Comments RBC (test code = RBC) 2.65 4.20-5.40 [place] [address]-08-11 08:17:00 Test Item Value Reference Range Interpretation Comments Hgb (test code = Hgb) 7.9 12.0-16.0 [place] [address]-08-11 08:17:00 Test Item Value Reference Range Interpretation Comments Hct (test code = Hct) 24.0 36.0-48.0 [place] [address]-08-11 08:17:00 Test Item Value Reference Range Interpretation Comments MCV (test code = MCV) 90.6 80.0-98.0 [place] [address]-08-11 08:17:00 Test Item Value Reference Range Interpretation Comments MCH (test code = MCH) 29.7 pg 27.0-31.0 [facility] CenterNrvlkkbVWEMPUWLKP6034-16-70 08:17:00 Test Item Value Reference Range Interpretation Comments MCHC (test code = MCHC) 32.7 32.0-36.0 [place] 948411-08-11 08:17:00 Test Item Value Reference Range Interpretation Comments RDW (test code = RDW) 19.1 11.5-14.5 [facility] CenterBzlxjosMJUWCVVXKS2755-46-64 08:17:00 Test Item Value Reference Range Interpretation Comments Platelet (test code = Platelet) 71 133-450 [facility] CenterHlzqlksGSIHVFNEWX4246-97-05 08:17:00 Test Item Value Reference Range Interpretation Comments MPV (test code = MPV) 9.9 7.4-10.4 [place] 948411-08-11 08:17:00 Test Item Value Reference Range Interpretation Comments Segs (test code = Segs) 56.1 45.0-75.0 [facility] CenterTvqmyqdUKRHDSFDZZ9555-52-72 08:17:00 Test Item Value Reference Range Interpretation Comments Lymphocytes (test code = Lymphocytes) 28.9 20.0-40.0 [facility] CenterHmfaqknHKKRDUBGDJ7904-17-12 08:17:00 Test Item Value Reference Range Interpretation Comments Monocytes (test code = Monocytes) 8.1 2.0-12.0 [facility] CenterHgkcgoyFTYFLSDHOJ0161-53-87 08:17:00 Test Item Value Reference Range Interpretation Comments Eosinophils (test code = 5.9 See_Comment [A utomated message] The Eosinophils) system which ge nerated this result tra nsmitted reference range : <=4.0. The reference r leo was not used to int erpret this result as normal/abnormal . [facility] CenterOxqbwrkWOQTKWQPSR4422-41-87 08:17:00 Test Item Value Reference Range Interpretation Comments Basophils (test code = 1.0 See_Comment [Aut omated message] The Basophils) system which ge nerated this result tra nsmitted reference range : <=1.0. The reference r leo was not used to int erpret this result as normal/abnormal . [facility] CenterLfgqjnuVZDKQJHIPM1547-02-22 08:17:00 Test Item Value Reference Range Interpretation Comments Neutrophils # (test code = Neutrophils 1.3 1.5-8.1 #) [place] 948411-08-11 08:17:00 Test Item Value Reference Range Interpretation Comments Lymphocytes # (test code = Lymphocytes 0.7 1.0-5.5 #) [place] 948411-08-11 08:17:00 Test Item Value Reference Range Interpretation Comments Monocytes # (test code 0.2 See_Comment [Aut omated message] The = Monocytes #) system which generated this result tra nsmitted reference range : <=0.8. The reference r leo was not used to int erpret this result as normal/abnormal . [place] 948411-08-11 08:17:00 Test Item Value Reference Range Interpretation Comments Eosinophils # (test code 0.1 See_Comment [A utomated message] The = Eosinophils #) system whic h generated this result tra nsmitted reference range : <=0.5. The reference r leo was not used to int erpret this result as normal/abnormal . [facility]2021-08-10 09:30:00 Test Item Value Reference Range Interpretation Comments Glucose Lvl (test code = Glucose Lvl) 61 70-99 [place] 469941-08-10 09:30:00 Test Item Value Reference Range Interpretation Comments BUN (test code = BUN) 13 7-22 [place] 469941-08-10 09:30:00 Test Item Value Reference Range Interpretation Comments Creatinine Lvl (test code = Creatinine 3.71 0.50-1.40 Lvl) [place] 469941-08-10 09:30:00 Test Item Value Reference Range Interpretation Comments Sodium Lvl (test code = Sodium Lvl) 136 135-145 [place] 469941-08-10 09:30:00 Test Item Value Reference Range Interpretation Comments Potassium Lvl (test code = Potassium 4.3 3.5-5.1 Lvl) [place] 469941-08-10 09:30:00 Test Item Value Reference Range Interpretation Comments Chloride Lvl (test code = Chloride Lvl) 103 95-109 [place] 469941-08-10 09:30:00 Test Item Value Reference Range Interpretation Comments CO2 (test code = CO2) 27 24-32 [place] 469941-08-10 09:30:00 Test Item Value Reference Range Interpretation Comments Calcium Lvl (test code = Calcium Lvl) 7.9 8.5-10.5 [place] 469941-08-10 09:30:00 Test Item Value Reference Range Interpretation Comments AGAP (test code = AGAP) 10.3 10.0-20.0 [place] 469941-08-10 09:30:00 Test Item Value Reference Range Interpretation Comments eGFR (test code = eGFR) 15 [place] 469941-08-10 09:30:00 Test Item Value Reference Range Interpretation Comments Magnesium Lvl (test code = Magnesium 2.3 1.8-2.4 Lvl) [facility]2021-08-10 09:30:00 Test Item Value Reference Range Interpretation Comments Phosphorus (test code = Phosphorus) 3.1 2.5-4.5 [facility] CenterRkawkbrXWSVKRRVRQ9044-41-84 09:30:00 Test Item Value Reference Range Interpretation Comments Segs (test code = Segs) 61.5 45.0-75.0 [place] 948411-08-10 09:30:00 Test Item Value Reference Range Interpretation Comments Lymphocytes (test code = Lymphocytes) 24.6 20.0-40.0 [place] 948411-08-10 09:30:00 Test Item Value Reference Range Interpretation Comments Monocytes (test code = Monocytes) 7.4 2.0-12.0 [place] 948411-08-10 09:30:00 Test Item Value Reference Range Interpretation Comments Eosinophils (test code = 5.5 See_Comment [A utomated message] The Eosinophils) system which ge nerated this result tra nsmitted reference range : <=4.0. The reference r leo was not used to int erpret this result as normal/abnormal . [place] 948411-08-10 09:30:00 Test Item Value Reference Range Interpretation Comments Basophils (test code = 1.0 See_Comment [Aut omated message] The Basophils) system which ge nerated this result tra nsmitted reference range : <=1.0. The reference r leo was not used to int erpret this result as normal/abnormal . [place] 948411-08-10 09:30:00 Test Item Value Reference Range Interpretation Comments Neutrophils # (test code = Neutrophils 1.6 1.5-8.1 #) [facility] CenterQibbyaqZBVNLLAURO8005-78-47 09:30:00 Test Item Value Reference Range Interpretation Comments Lymphocytes # (test code = Lymphocytes 0.6 1.0-5.5 #) [place] 948411-08-10 09:30:00 Test Item Value Reference Range Interpretation Comments Monocytes # (test code 0.2 See_Comment [Aut omated message] The = Monocytes #) system which generated this result tra nsmitted reference range : <=0.8. The reference r leo was not used to int erpret this result as normal/abnormal . [facility] CenterRqfpetbIYCFKBGTNH2912-01-20 09:30:00 Test Item Value Reference Range Interpretation Comments Eosinophils # (test code 0.1 See_Comment [A utomated message] The = Eosinophils #) system whic h generated this result tra nsmitted reference range : <=0.5. The reference r leo was not used to int erpret this result as normal/abnormal . [place] 948411-08-10 09:30:00 Test Item Value Reference Range Interpretation [...] studies, if clinically indicated, are recommended. CPT: 72279 [facility] CenterHzayarjKXSLKAEANI3255-69-21 09:30:00 Test Item Value Reference Range Interpretation Comments WBC (test code = WBC) 2.5 3.7-10.4 [place] 948411-08-10 09:30:00 Test Item Value Reference Range Interpretation Comments RBC (test code = RBC) 2.68 4.20-5.40 [place] 948411-08-10 09:30:00 Test Item Value Reference Range Interpretation Comments Hgb (test code = Hgb) 8.2 12.0-16.0 [place] [address]-08-10 09:30:00 Test Item Value Reference Range Interpretation Comments Hct (test code = Hct) 24.3 36.0-48.0 [place] 948411-08-10 09:30:00 Test Item Value Reference Range Interpretation Comments MCV (test code = MCV) 90.9 80.0-98.0 [place] [address]-08-10 09:30:00 Test Item Value Reference Range Interpretation Comments MCH (test code = MCH) 30.5 pg 27.0-31.0 [place] [address]-08-10 09:30:00 Test Item Value Reference Range Interpretation Comments MCHC (test code = MCHC) 33.6 32.0-36.0 [place] 948411-08-10 09:30:00 Test Item Value Reference Range Interpretation Comments RDW (test code = RDW) 19.4 11.5-14.5 [place] [address]-08-10 09:30:00 Test Item Value Reference Range Interpretation Comments Platelet (test code = Platelet) 70 133-450 [place] 948411-08-10 09:30:00 Test Item Value Reference Range Interpretation Comments MPV (test code = MPV) 10.7 7.4-10.4 [place] 469941-08-10 09:30:00 Test Item Value Reference Range Interpretation Comments Glucose Lvl (test code = Glucose Lvl) 61 70-99 [place] 469941-08-10 09:30:00 Test Item Value Reference Range Interpretation Comments BUN (test code = BUN) 13 7-22 [place] 469941-08-10 09:30:00 Test Item Value Reference Range Interpretation Comments Creatinine Lvl (test code = Creatinine 3.71 0.50-1.40 Lvl) [place] 469941-08-10 09:30:00 Test Item Value Reference Range Interpretation Comments Sodium Lvl (test code = Sodium Lvl) 136 135-145 [place] 469941-08-10 09:30:00 Test Item Value Reference Range Interpretation Comments Potassium Lvl (test code = Potassium 4.3 3.5-5.1 Lvl) [place] 469941-08-10 09:30:00 Test Item Value Reference Range Interpretation Comments Chloride Lvl (test code = Chloride Lvl) 103 95-109 [place] 469941-08-10 09:30:00 Test Item Value Reference Range Interpretation Comments CO2 (test code = CO2) 27 24-32 [place] [address]-08-10 09:30:00 Test Item Value Reference Range Interpretation Comments Calcium Lvl (test code = Calcium Lvl) 7.9 8.5-10.5 [place] [address]-08-10 09:30:00 Test Item Value Reference Range Interpretation Comments AGAP (test code = AGAP) 10.3 10.0-20.0 [place] [address]-08-10 09:30:00 Test Item Value Reference Range Interpretation Comments eGFR (test code = eGFR) 15 [place] [address]-08-10 09:30:00 Test Item Value Reference Range Interpretation Comments Magnesium Lvl (test code = Magnesium 2.3 1.8-2.4 Lvl) [place] 469941-08-10 09:30:00 Test Item Value Reference Range Interpretation Comments Phosphorus (test code = Phosphorus) 3.1 2.5-4.5 [place] [address]-08-10 09:30:00 Test Item Value Reference Range Interpretation Comments Segs (test code = Segs) 61.5 45.0-75.0 [place] [address]-08-10 09:30:00 Test Item Value Reference Range Interpretation Comments Lymphocytes (test code = Lymphocytes) 24.6 20.0-40.0 [place] [address]-08-10 09:30:00 Test Item Value Reference Range Interpretation Comments Monocytes (test code = Monocytes) 7.4 2.0-12.0 [place] [address]-08-10 09:30:00 Test Item Value Reference Range Interpretation Comments Eosinophils (test code = 5.5 See_Comment [A utomated message] The Eosinophils) system which ge nerated this result tra nsmitted reference range : <=4.0. The reference r leo was not used to int erpret this result as normal/abnormal . [place] [address]-08-10 09:30:00 Test Item Value Reference Range Interpretation Comments Basophils (test code = 1.0 See_Comment [Aut omated message] The Basophils) system which ge nerated this result tra nsmitted reference range : <=1.0. The reference r leo was not used to int erpret this result as normal/abnormal . [facility]IR[facility]GT6842[facility] 09:30:00 Test Item Value Reference Range Interpretation Comments Neutrophils # (test code = Neutrophils 1.6 1.5-8.1 #) [facility]JwtkuaaZBVBUEVSJI4753-77-97 09:30:00 Test Item Value Reference Range Interpretation Comments Lymphocytes # (test code = Lymphocytes 0.6 1.0-5.5 #) [facility]NjwknqoHRLQWBFTND0064-75-36 09:30:00 Test Item Value Reference Range Interpretation Comments Monocytes # (test code 0.2 See_Comment [Aut omated message] The = Monocytes #) system which generated this result tra nsmitted reference range : <=0.8. The reference r leo was not used to int erpret this result as normal/abnormal . [facility]YmwsmgjAMDGUWKOUN0826-08-10 09:30:00 Test Item Value Reference Range Interpretation Comments Eosinophils # (test code 0.1 See_Comment [A utomated message] The = Eosinophils #) system whic h generated this result tra nsmitted reference range : <=0.5. The reference r leo was not used to int erpret this result as normal/abnormal . [place] 948411-08-10 09:30:00 Test Item Value Reference Range Interpretation [...] studies, if clinically indicated, are recommended. CPT: 68475 [place] 948411-08-10 09:30:00 Test Item Value Reference Range Interpretation Comments WBC (test code = WBC) 2.5 3.7-10.4 [place] [address]-08-10 09:30:00 Test Item Value Reference Range Interpretation Comments RBC (test code = RBC) 2.68 4.20-5.40 [place] 948411-08-10 09:30:00 Test Item Value Reference Range Interpretation Comments Hgb (test code = Hgb) 8.2 12.0-16.0 [place] 948411-08-10 09:30:00 Test Item Value Reference Range Interpretation Comments Hct (test code = Hct) 24.3 36.0-48.0 [place] 948411-08-10 09:30:00 Test Item Value Reference Range Interpretation Comments MCV (test code = MCV) 90.9 80.0-98.0 [place] 948411-08-10 09:30:00 Test Item Value Reference Range Interpretation Comments MCH (test code = MCH) 30.5 pg 27.0-31.0 [facility]JhctisxREEMSXZJLK6533-63-56 09:30:00 Test Item Value Reference Range Interpretation Comments MCHC (test code = MCHC) 33.6 32.0-36.0 [place] 948411-08-10 09:30:00 Test Item Value Reference Range Interpretation Comments RDW (test code = RDW) 19.4 11.5-14.5 [place] 948411-08-10 09:30:00 Test Item Value Reference Range Interpretation Comments Platelet (test code = Platelet) 70 133-450 [facility] CenterSmbrqhhXHSVYSCEQW0052-62-96 09:30:00 Test Item Value Reference Range Interpretation Comments MPV (test code = MPV) 10.7 7.4-10.4 [facility]2021-08-10 09:30:00 Test Item Value Reference Range Interpretation Comments Glucose Lvl (test code = Glucose Lvl) 61 70-99 [facility]2021-08-10 09:30:00 Test Item Value Reference Range Interpretation Comments BUN (test code = BUN) 13 7-22 [place] 469941-08-10 09:30:00 Test Item Value Reference Range Interpretation Comments Creatinine Lvl (test code = Creatinine 3.71 0.50-1.40 Lvl) [place] 469941-08-10 09:30:00 Test Item Value Reference Range Interpretation Comments Sodium Lvl (test code = Sodium Lvl) 136 135-145 [place] 469941-08-10 09:30:00 Test Item Value Reference Range Interpretation Comments Potassium Lvl (test code = Potassium 4.3 3.5-5.1 Lvl) [place] 469941-08-10 09:30:00 Test Item Value Reference Range Interpretation Comments Chloride Lvl (test code = Chloride Lvl) 103 95-109 [place] [address]-08-10 09:30:00 Test Item Value Reference Range Interpretation Comments CO2 (test code = CO2) 27 24-32 [place] [address]-08-10 09:30:00 Test Item Value Reference Range Interpretation Comments Calcium Lvl (test code = Calcium Lvl) 7.9 8.5-10.5 [place] [address]-08-10 09:30:00 Test Item Value Reference Range Interpretation Comments AGAP (test code = AGAP) 10.3 10.0-20.0 [place] [address]-08-10 09:30:00 Test Item Value Reference Range Interpretation Comments eGFR (test code = eGFR) 15 [place] 469941-08-10 09:30:00 Test Item Value Reference Range Interpretation Comments Magnesium Lvl (test code = Magnesium 2.3 1.8-2.4 Lvl) [place] 469941-08-10 09:30:00 Test Item Value Reference Range Interpretation Comments Phosphorus (test code = Phosphorus) 3.1 2.5-4.5 [place] [address]-08-10 09:30:00 Test Item Value Reference Range Interpretation Comments Segs (test code = Segs) 61.5 45.0-75.0 [place] [address]-08-10 09:30:00 Test Item Value Reference Range Interpretation Comments Lymphocytes (test code = Lymphocytes) 24.6 20.0-40.0 [place] [address]-08-10 09:30:00 Test Item Value Reference Range Interpretation Comments Monocytes (test code = Monocytes) 7.4 2.0-12.0 [place] [address]-08-10 09:30:00 Test Item Value Reference Range Interpretation Comments Eosinophils (test code = 5.5 See_Comment [A utomated message] The Eosinophils) system which ge nerated this result tra nsmitted reference range : <=4.0. The reference r leo was not used to int erpret this result as normal/abnormal . [place] 948411-08-10 09:30:00 Test Item Value Reference Range Interpretation Comments Basophils (test code = 1.0 See_Comment [Aut omated message] The Basophils) system which ge nerated this result tra nsmitted reference range : <=1.0. The reference r leo was not used to int erpret this result as normal/abnormal . [place] 948411-08-10 09:30:00 Test Item Value Reference Range Interpretation Comments Neutrophils # (test code = Neutrophils 1.6 1.5-8.1 #) [place] 948411-08-10 09:30:00 Test Item Value Reference Range Interpretation Comments Lymphocytes # (test code = Lymphocytes 0.6 1.0-5.5 #) [place] 948411-08-10 09:30:00 Test Item Value Reference Range Interpretation Comments Monocytes # (test code 0.2 See_Comment [Aut omated message] The = Monocytes #) system which generated this result tra nsmitted reference range : <=0.8. The reference r leo was not used to int erpret this result as normal/abnormal . [facility] CenterJmsytmtFICFTUMJZU9983-98-34 09:30:00 Test Item Value Reference Range Interpretation Comments Eosinophils # (test code 0.1 See_Comment [A utomated message] The = Eosinophils #) system whic h generated this result tra nsmitted reference range : <=0.5. The reference r leo was not used to int erpret this result as normal/abnormal . [place] 948411-08-10 09:30:00 Test Item Value Reference Range Interpretation [...] studies, if clinically indicated, are recommended. CPT: 62305 [place] 948411-08-10 09:30:00 Test Item Value Reference Range Interpretation Comments WBC (test code = WBC) 2.5 3.7-10.4 [facility] CenterIhwlvhqKBWQMUSVPW5004-56-22 09:30:00 Test Item Value Reference Range Interpretation Comments RBC (test code = RBC) 2.68 4.20-5.40 [facility] CenterMzfakuqDFEBDREPXQ9210-95-52 09:30:00 Test Item Value Reference Range Interpretation Comments Hgb (test code = Hgb) 8.2 12.0-16.0 [facility] CenterLfexpdqDBXHHQWMFQ8212-08-46 09:30:00 Test Item Value Reference Range Interpretation Comments Hct (test code = Hct) 24.3 36.0-48.0 [facility] CenterLngmnrcAXRDNDNUHX4604-44-96 09:30:00 Test Item Value Reference Range Interpretation Comments MCV (test code = MCV) 90.9 80.0-98.0 [facility] CenterLynhlhqSHQXTMFJAK5184-89-72 09:30:00 Test Item Value Reference Range Interpretation Comments MCH (test code = MCH) 30.5 pg 27.0-31.0 [facility] CenterUuawjwrHJUFIXBPNF2959-96-45 09:30:00 Test Item Value Reference Range Interpretation Comments MCHC (test code = MCHC) 33.6 32.0-36.0 [facility] CenterJjfrwyqIAZALTSJMR7128-85-74 09:30:00 Test Item Value Reference Range Interpretation Comments RDW (test code = RDW) 19.4 11.5-14.5 [facility] CenterMwpeyniTEGHVYKMTI5625-39-52 09:30:00 Test Item Value Reference Range Interpretation Comments Platelet (test code = Platelet) 70 133-450 [facility] CenterLsrmjybQUSGZVFSPW0695-71-03 09:30:00 Test Item Value Reference Range Interpretation Comments MPV (test code = MPV) 10.7 7.4-10.4 [facility]2021-08-10 09:30:00 Test Item Value Reference Range Interpretation Comments Glucose Lvl (test code = Glucose Lvl) 61 70-99 [facility]2021-08-10 09:30:00 Test Item Value Reference Range Interpretation Comments BUN (test code = BUN) 13 7-22 [facility]2021-08-10 09:30:00 Test Item Value Reference Range Interpretation Comments Creatinine Lvl (test code = Creatinine 3.71 0.50-1.40 Lvl) [place] 469941-08-10 09:30:00 Test Item Value Reference Range Interpretation Comments Sodium Lvl (test code = Sodium Lvl) 136 135-145 [place] 469941-08-10 09:30:00 Test Item Value Reference Range Interpretation Comments Potassium Lvl (test code = Potassium 4.3 3.5-5.1 Lvl) [place] 469941-08-10 09:30:00 Test Item Value Reference Range Interpretation Comments Chloride Lvl (test code = Chloride Lvl) 103 95-109 [place] 469941-08-10 09:30:00 Test Item Value Reference Range Interpretation Comments CO2 (test code = CO2) 27 24-32 [place] 469941-08-10 09:30:00 Test Item Value Reference Range Interpretation Comments Calcium Lvl (test code = Calcium Lvl) 7.9 8.5-10.5 [place] 469941-08-10 09:30:00 Test Item Value Reference Range Interpretation Comments AGAP (test code = AGAP) 10.3 10.0-20.0 [place] 469941-08-10 09:30:00 Test Item Value Reference Range Interpretation Comments eGFR (test code = eGFR) 15 [place] 469941-08-10 09:30:00 Test Item Value Reference Range Interpretation Comments Magnesium Lvl (test code = Magnesium 2.3 1.8-2.4 Lvl) [place] 469941-08-10 09:30:00 Test Item Value Reference Range Interpretation Comments Phosphorus (test code = Phosphorus) 3.1 2.5-4.5 [place] 948411-08-10 09:30:00 Test Item Value Reference Range Interpretation Comments Segs (test code = Segs) 61.5 45.0-75.0 [place] [address]-08-10 09:30:00 Test Item Value Reference Range Interpretation Comments Lymphocytes (test code = Lymphocytes) 24.6 20.0-40.0 [place] [address]-08-10 09:30:00 Test Item Value Reference Range Interpretation Comments Monocytes (test code = Monocytes) 7.4 2.0-12.0 [place] [address]-08-10 09:30:00 Test Item Value Reference Range Interpretation Comments Eosinophils (test code = 5.5 See_Comment [A utomated message] The Eosinophils) system which ge nerated this result tra nsmitted reference range : <=4.0. The reference r leo was not used to int erpret this result as normal/abnormal . [place] [address]-08-10 09:30:00 Test Item Value Reference Range Interpretation Comments Basophils (test code = 1.0 See_Comment [Aut omated message] The Basophils) system which ge nerated this result tra nsmitted reference range : <=1.0. The reference r leo was not used to int erpret this result as normal/abnormal . [address]08-10 09:30:00 Test Item Value Reference Range Interpretation Comments Neutrophils # (test code = Neutrophils 1.6 1.5-8.1 #) [address]08-10 09:30:00 Test Item Value Reference Range Interpretation Comments Lymphocytes # (test code = Lymphocytes 0.6 1.0-5.5 #) [address]08-10 09:30:00 Test Item Value Reference Range Interpretation Comments Monocytes # (test code 0.2 See_Comment [Aut omated message] The = Monocytes #) system which generated this result tra nsmitted reference range : <=0.8. The reference r leo was not used to int erpret this result as normal/abnormal . [place] [address]-08-10 09:30:00 Test Item Value Reference Range Interpretation Comments Eosinophils # (test code 0.1 See_Comment [A utomated message] The = Eosinophils #) system [facility] generated this result tra nsmitted reference range : <=0.5. The reference r leo was not used to int erpret this result as normal/abnormal . [place] [address]-08-10 09:30:00 Test Item Value Reference Range Interpretation [...] studies, if clinically indicated, are recommended. CPT: 76799 [facility] CenterVlhnakcGWNCODYOFV6942-69-59 09:30:00 Test Item Value Reference Range Interpretation Comments WBC (test code = WBC) 2.5 3.7-10.4 [facility] CenterQbxrnluXUJHDBMLKX0880-47-39 09:30:00 Test Item Value Reference Range Interpretation Comments RBC (test code = RBC) 2.68 4.20-5.40 [facility] CenterEnwtowzMUMXKMBMYB3609-33-54 09:30:00 Test Item Value Reference Range Interpretation Comments Hgb (test code = Hgb) 8.2 12.0-16.0 [place] 948411-08-10 09:30:00 Test Item Value Reference Range Interpretation Comments Hct (test code = Hct) 24.3 36.0-48.0 [facility] CenterZrrtpqnJILDMBFPXN1939-48-34 09:30:00 Test Item Value Reference Range Interpretation Comments MCV (test code = MCV) 90.9 80.0-98.0 [facility] CenterKmmrzdzYSXNDQFOYX9539-64-15 09:30:00 Test Item Value Reference Range Interpretation Comments MCH (test code = MCH) 30.5 pg 27.0-31.0 [facility] CenterXzbrfadNYTZWAGWIY3119-86-35 09:30:00 Test Item Value Reference Range Interpretation Comments MCHC (test code = MCHC) 33.6 32.0-36.0 [facility] CenterPeuulpqFMVJDEHJYS0098-21-82 09:30:00 Test Item Value Reference Range Interpretation Comments RDW (test code = RDW) 19.4 11.5-14.5 [facility] CenterTialkrsZUTEWMPCVC8113-18-61 09:30:00 Test Item Value Reference Range Interpretation Comments Platelet (test code = Platelet) 70 133-450 [facility] CenterHsqhtdcYMDTTEAEAZ3492-82-40 09:30:00 Test Item Value Reference Range Interpretation Comments MPV (test code = MPV) 10.7 7.4-10.4 [facility]2021-08-10 09:30:00 Test Item Value Reference Range Interpretation Comments Glucose Lvl (test code = Glucose Lvl) 61 70-99 [facility]2021-08-10 09:30:00 Test Item Value Reference Range Interpretation Comments BUN (test code = BUN) 13 7-22 [place] 469941-08-10 09:30:00 Test Item Value Reference Range Interpretation Comments Creatinine Lvl (test code = Creatinine 3.71 0.50-1.40 Lvl) [place] 469941-08-10 09:30:00 Test Item Value Reference Range Interpretation Comments Sodium Lvl (test code = Sodium Lvl) 136 135-145 [place] 469941-08-10 09:30:00 Test Item Value Reference Range Interpretation Comments Potassium Lvl (test code = Potassium 4.3 3.5-5.1 Lvl) [place] 469941-08-10 09:30:00 Test Item Value Reference Range Interpretation Comments Chloride Lvl (test code = Chloride Lvl) 103 95-109 [place] 469941-08-10 09:30:00 Test Item Value Reference Range Interpretation Comments CO2 (test code = CO2) 27 24-32 [place] 469941-08-10 09:30:00 Test Item Value Reference Range Interpretation Comments Calcium Lvl (test code = Calcium Lvl) 7.9 8.5-10.5 [place] 469941-08-10 09:30:00 Test Item Value Reference Range Interpretation Comments AGAP (test code = AGAP) 10.3 10.0-20.0 [place] 469941-08-10 09:30:00 Test Item Value Reference Range Interpretation Comments eGFR (test code = eGFR) 15 [place] 469941-08-10 09:30:00 Test Item Value Reference Range Interpretation Comments Magnesium Lvl (test code = Magnesium 2.3 1.8-2.4 Lvl) [place] 469941-08-10 09:30:00 Test Item Value Reference Range Interpretation Comments Phosphorus (test code = Phosphorus) 3.1 2.5-4.5 [place] 948411-08-10 09:30:00 Test Item Value Reference Range Interpretation Comments Segs (test code = Segs) 61.5 45.0-75.0 [place] [address]-08-10 09:30:00 Test Item Value Reference Range Interpretation Comments Lymphocytes (test code = Lymphocytes) 24.6 20.0-40.0 [place] 948411-08-10 09:30:00 Test Item Value Reference Range Interpretation Comments Monocytes (test code = Monocytes) 7.4 2.0-12.0 [place] 948411-08-10 09:30:00 Test Item Value Reference Range Interpretation Comments Eosinophils (test code = 5.5 See_Comment [A utomated message] The Eosinophils) system which ge nerated this result tra nsmitted reference range : <=4.0. The reference r leo was not used to int erpret this result as normal/abnormal . [place] 948411-08-10 09:30:00 Test Item Value Reference Range Interpretation Comments Basophils (test code = 1.0 See_Comment [Aut omated message] The Basophils) system which ge nerated this result tra nsmitted reference range : <=1.0. The reference r leo was not used to int erpret this result as normal/abnormal . [place] 948411-08-10 09:30:00 Test Item Value Reference Range Interpretation Comments Neutrophils # (test code = Neutrophils 1.6 1.5-8.1 #) [place] 948411-08-10 09:30:00 Test Item Value Reference Range Interpretation Comments Lymphocytes # (test code = Lymphocytes 0.6 1.0-5.5 #) [place] 948411-08-10 09:30:00 Test Item Value Reference Range Interpretation Comments Monocytes # (test code 0.2 See_Comment [Aut omated message] The = Monocytes #) system which generated this result tra nsmitted reference range : <=0.8. The reference r leo was not used to int erpret this result as normal/abnormal . [place] 948411-08-10 09:30:00 Test Item Value Reference Range Interpretation Comments Eosinophils # (test code 0.1 See_Comment [A utomated message] The = Eosinophils #) system whic h generated this result tra nsmitted reference range : <=0.5. The reference r leo was not used to int erpret this result as normal/abnormal . [place] 948411-08-10 09:30:00 Test Item Value Reference Range Interpretation [...] studies, if clinically indicated, are recommended. CPT: 73244 [facility] CenterLoidfbfTAZGHSTMYI7276-19-77 09:30:00 Test Item Value Reference Range Interpretation Comments WBC (test code = WBC) 2.5 3.7-10.4 [facility] CenterAoxhwjmFINAJNPBFU9838-18-58 09:30:00 Test Item Value Reference Range Interpretation Comments RBC (test code = RBC) 2.68 4.20-5.40 [facility] CenterNpwzdqwKISFQCNHRL9644-21-33 09:30:00 Test Item Value Reference Range Interpretation Comments Hgb (test code = Hgb) 8.2 12.0-16.0 [facility] CenterYsufsdzBCUBUWBRQD7825-70-63 09:30:00 Test Item Value Reference Range Interpretation Comments Hct (test code = Hct) 24.3 36.0-48.0 [facility] CenterExrypxnYPFLFNXOXY7945-23-11 09:30:00 Test Item Value Reference Range Interpretation Comments MCV (test code = MCV) 90.9 80.0-98.0 [facility] CenterHyejjcyZOUNQBJUVA3482-99-21 09:30:00 Test Item Value Reference Range Interpretation Comments MCH (test code = MCH) 30.5 pg 27.0-31.0 [facility] CenterOwazfypKLKPBBCSOY8323-30-07 09:30:00 Test Item Value Reference Range Interpretation Comments MCHC (test code = MCHC) 33.6 32.0-36.0 [facility] CenterXukojdwZFRDBWTPLJ0598-46-10 09:30:00 Test Item Value Reference Range Interpretation Comments RDW (test code = RDW) 19.4 11.5-14.5 [facility] CenterYcoqjeyQMRGBSGIYK7283-86-41 09:30:00 Test Item Value Reference Range Interpretation Comments Platelet (test code = Platelet) 70 133-450 [facility] CenterEunvuvbHGDUISZUXY0063-18-79 09:30:00 Test Item Value Reference Range Interpretation Comments MPV (test code = MPV) 10.7 7.4-10.4 [facility]2021-08-09 05:10:00 Test Item Value Reference Range Interpretation Comments Glucose Lvl (test code = Glucose Lvl) 69 70-99 [facility]2021-08-09 05:10:00 Test Item Value Reference Range Interpretation Comments BUN (test code = BUN) 29 7-22 [facility]2021-08-09 05:10:00 Test Item Value Reference Range Interpretation Comments Creatinine Lvl (test code = Creatinine 5.14 0.50-1.40 Lvl) [facility]2021-08-09 05:10:00 Test Item Value Reference Range Interpretation Comments Sodium Lvl (test code = Sodium Lvl) 134 135-145 [facility]2021-08-09 05:10:00 Test Item Value Reference Range Interpretation Comments Potassium Lvl (test code = Potassium 5.1 3.5-5.1 Lvl) [facility]2021-08-09 05:10:00 Test Item Value Reference Range Interpretation Comments Chloride Lvl (test code = Chloride Lvl) 98 95-109 [facility]2021-08-09 05:10:00 Test Item Value Reference Range Interpretation Comments CO2 (test code = CO2) 29 24-32 [facility]2021-08-09 05:10:00 Test Item Value Reference Range Interpretation Comments Calcium Lvl (test code = Calcium Lvl) 7.6 8.5-10.5 [facility]2021-08-09 05:10:00 Test Item Value Reference Range Interpretation Comments AGAP (test code = AGAP) 12.1 10.0-20.0 [facility]2021-08-09 05:10:00 Test Item Value Reference Range Interpretation Comments eGFR (test code = eGFR) 10 [facility]2021-08-09 05:10:00 Test Item Value Reference Range Interpretation Comments Magnesium Lvl (test code = Magnesium 2.3 1.8-2.4 Lvl) [facility]2021-08-09 05:10:00 Test Item Value Reference Range Interpretation Comments Phosphorus (test code = Phosphorus) 5.0 2.5-4.5 [facility]mV[facility]ZLMNWQHV5931[facility]72[facility] 05:10:00 Test Item Value Reference Range Interpretation Comments WBC (test code = WBC) 2.7 3.7-10.4 [place] 948411-08-09 05:10:00 Test Item Value Reference Range Interpretation Comments RBC (test code = RBC) 2.80 4.20-5.40 [facility] CenterLtyjkqbNSPNCGMEBC3631-18-26 05:10:00 Test Item Value Reference Range Interpretation Comments Hgb (test code = Hgb) 8.5 12.0-16.0 [place] 948411-08-09 05:10:00 Test Item Value Reference Range Interpretation Comments Hct (test code = Hct) 25.7 36.0-48.0 [facility] CenterUhmifwjOYTQEBEUGW6321-89-60 05:10:00 Test Item Value Reference Range Interpretation Comments MCV (test code = MCV) 91.7 80.0-98.0 [facility] CenterLwnkqhmIDIDSBDBUZ8460-44-33 05:10:00 Test Item Value Reference Range Interpretation Comments MCH (test code = MCH) 30.4 pg 27.0-31.0 [facility] CenterAiyvtrxANNPRDZNFB1188-97-15 05:10:00 Test Item Value Reference Range Interpretation Comments MCHC (test code = MCHC) 33.1 32.0-36.0 [facility] CenterKvpveklODUHJKPCRB0546-03-08 05:10:00 Test Item Value Reference Range Interpretation Comments RDW (test code = RDW) 19.2 11.5-14.5 [facility] CenterEvnhpcsHUMPHKDOMN1461-78-80 05:10:00 Test Item Value Reference Range Interpretation Comments Platelet (test code = Platelet) 72 133-450 [facility] CenterMclnergGIKFZFCWBF5572-13-69 05:10:00 Test Item Value Reference Range Interpretation Comments MPV (test code = MPV) 9.9 7.4-10.4 [facility] CenterZzugaayKSWKSNBOQK8251-42-25 05:10:00 Test Item Value Reference Range Interpretation Comments Segs (test code = Segs) 72.6 45.0-75.0 [facility] CenterXonfvchXLYRPUJQRR8622-45-71 05:10:00 Test Item Value Reference Range Interpretation Comments Lymphocytes (test code = Lymphocytes) 15.9 20.0-40.0 [place] 948411-08-09 05:10:00 Test Item Value Reference Range Interpretation Comments Monocytes (test code = Monocytes) 7.3 2.0-12.0 [facility] CenterPskakjbTUOMPXSRLT9514-28-34 05:10:00 Test Item Value Reference Range Interpretation Comments Eosinophils (test code = 3.4 See_Comment [A utomated message] The Eosinophils) system which ge nerated this result tra nsmitted reference range : <=4.0. The reference r leo was not used to int erpret this result as normal/abnormal . [facility] CenterBejxoczBZAAJNTZEB7273-27-82 05:10:00 Test Item Value Reference Range Interpretation Comments Basophils (test code = 0.8 See_Comment [Aut omated message] The Basophils) system which ge nerated this result tra nsmitted reference range : <=1.0. The reference r leo was not used to int erpret this result as normal/abnormal . [facility] CenterVenaaasHNMVCBOJQC0563-60-36 05:10:00 Test Item Value Reference Range Interpretation Comments Neutrophils # (test code = Neutrophils 1.9 1.5-8.1 #) [facility] CenterFvewudfDEDYSONDFP9166-54-89 05:10:00 Test Item Value Reference Range Interpretation Comments Lymphocytes # (test code = Lymphocytes 0.4 1.0-5.5 #) [facility] CenterOwxsecoZKRNQTCKHN7946-54-80 05:10:00 Test Item Value Reference Range Interpretation Comments Monocytes # (test code 0.2 See_Comment [Aut omated message] The = Monocytes #) system which generated this result tra nsmitted reference range : <=0.8. The reference r leo was not used to int erpret this result as normal/abnormal . [facility] CenterFrsggfwXSYYRQKRUH7033-53-73 05:10:00 Test Item Value Reference Range Interpretation Comments Eosinophils # (test code 0.1 See_Comment [A utomated message] The = Eosinophils #) system whic h generated this result tra nsmitted reference range : <=0.5. The reference r leo was not used to int erpret this result as normal/abnormal . [facility]PARATHYROID NMCBHBB0310-86-30 05:10:00 Test Item Value Reference Range Interpretation Comments Ca Ion WB (test code = Ca Ion WB) 1.10 1.05-1.25 [facility] KBTHJVY5110-91-20 05:10:00 Test Item Value Reference Range Interpretation Comments Ca Norm WB (test code = Ca Norm WB) 1.06 1.05-1.25 [facility] CenterCHEM NJOKJ8587-81-37 05:10:00 Test Item Value Reference Range Interpretation Comments Glucose Lvl (test code = Glucose Lvl) 69 70-99 [facility]2021-08-09 05:10:00 Test Item Value Reference Range Interpretation Comments BUN (test code = BUN) 29 7-22 [facility]2021-08-09 05:10:00 Test Item Value Reference Range Interpretation Comments Creatinine Lvl (test code = Creatinine 5.14 0.50-1.40 Lvl) [facility]2021-08-09 05:10:00 Test Item Value Reference Range Interpretation Comments Sodium Lvl (test code = Sodium Lvl) 134 135-145 [facility]2021-08-09 05:10:00 Test Item Value Reference Range Interpretation Comments Potassium Lvl (test code = Potassium 5.1 3.5-5.1 Lvl) [facility]2021-08-09 05:10:00 Test Item Value Reference Range Interpretation Comments Chloride Lvl (test code = Chloride Lvl) 98 95-109 [facility]2021-08-09 05:10:00 Test Item Value Reference Range Interpretation Comments CO2 (test code = CO2) 29 24-32 [facility]2021-08-09 05:10:00 Test Item Value Reference Range Interpretation Comments Calcium Lvl (test code = Calcium Lvl) 7.6 8.5-10.5 [facility]2021-08-09 05:10:00 Test Item Value Reference Range Interpretation Comments AGAP (test code = AGAP) 12.1 10.0-20.0 [facility]2021-08-09 05:10:00 Test Item Value Reference Range Interpretation Comments eGFR (test code = eGFR) 10 [facility]2021-08-09 05:10:00 Test Item Value Reference Range Interpretation Comments Magnesium Lvl (test code = Magnesium 2.3 1.8-2.4 Lvl) [facility]2021-08-09 05:10:00 Test Item Value Reference Range Interpretation Comments Phosphorus (test code = Phosphorus) 5.0 2.5-4.5 [facility] CenterHkvlxlyXKQQXERCSX1259-67-73 05:10:00 Test Item Value Reference Range Interpretation Comments WBC (test code = WBC) 2.7 3.7-10.4 [place] 948411-08-09 05:10:00 Test Item Value Reference Range Interpretation Comments RBC (test code = RBC) 2.80 4.20-5.40 [facility] CenterCtyfjchTARQJPSKPZ4582-59-38 05:10:00 Test Item Value Reference Range Interpretation Comments Hgb (test code = Hgb) 8.5 12.0-16.0 [place] 948411-08-09 05:10:00 Test Item Value Reference Range Interpretation Comments Hct (test code = Hct) 25.7 36.0-48.0 [facility] CenterVdmmvbxIBFTUSGRSC3822-59-67 05:10:00 Test Item Value Reference Range Interpretation Comments MCV (test code = MCV) 91.7 80.0-98.0 [facility] CenterDpjrpegDHAIUKANAN4168-29-76 05:10:00 Test Item Value Reference Range Interpretation Comments MCH (test code = MCH) 30.4 pg 27.0-31.0 [facility] CenterWrrkqfnFFCGEEPRRO5943-44-32 05:10:00 Test Item Value Reference Range Interpretation Comments MCHC (test code = MCHC) 33.1 32.0-36.0 [facility] CenterPjokeatVCYBBQPNYV0989-26-81 05:10:00 Test Item Value Reference Range Interpretation Comments RDW (test code = RDW) 19.2 11.5-14.5 [facility] CenterWkbtqgyHSUSKLAIBA9809-27-55 05:10:00 Test Item Value Reference Range Interpretation Comments Platelet (test code = Platelet) 72 133-450 [facility] CenterXmbrjskYPMEUXOUIC2844-81-61 05:10:00 Test Item Value Reference Range Interpretation Comments MPV (test code = MPV) 9.9 7.4-10.4 [facility] CenterRjakaesNNRQJLDGOX6523-56-12 05:10:00 Test Item Value Reference Range Interpretation Comments Segs (test code = Segs) 72.6 45.0-75.0 [facility] CenterEonojnzLPOYWJWTVE0761-06-75 05:10:00 Test Item Value Reference Range Interpretation Comments Lymphocytes (test code = Lymphocytes) 15.9 20.0-40.0 [place] 948411-08-09 05:10:00 Test Item Value Reference Range Interpretation Comments Monocytes (test code = Monocytes) 7.3 2.0-12.0 [facility] CenterOvbjzqxZGOGIAKOEC7496-65-79 05:10:00 Test Item Value Reference Range Interpretation Comments Eosinophils (test code = 3.4 See_Comment [A utomated message] The Eosinophils) system which ge nerated this result tra nsmitted reference range : <=4.0. The reference r leo was not used to int erpret this result as normal/abnormal . [facility] CenterRprkoxnQWDBDJEXHJ5711-48-04 05:10:00 Test Item Value Reference Range Interpretation Comments Basophils (test code = 0.8 See_Comment [Aut omated message] The Basophils) system which ge nerated this result tra nsmitted reference range : <=1.0. The reference r leo was not used to int erpret this result as normal/abnormal . [facility] CenterRzqhqkxLJSNQZYJNR4414-58-34 05:10:00 Test Item Value Reference Range Interpretation Comments Neutrophils # (test code = Neutrophils 1.9 1.5-8.1 #) [facility] CenterNygyfqrJSKOTPFWVT0869-23-92 05:10:00 Test Item Value Reference Range Interpretation Comments Lymphocytes # (test code = Lymphocytes 0.4 1.0-5.5 #) [facility] CenterCqrzdipXUBKYSUALT0302-08-16 05:10:00 Test Item Value Reference Range Interpretation Comments Monocytes # (test code 0.2 See_Comment [Aut omated message] The = Monocytes #) system which generated this result tra nsmitted reference range : <=0.8. The reference r leo was not used to int erpret this result as normal/abnormal . [facility] CenterPoahmatOPJZUNJZSS4356-70-20 05:10:00 Test Item Value Reference Range Interpretation Comments Eosinophils # (test code 0.1 See_Comment [A utomated message] The = Eosinophils #) system whic h generated this result tra nsmitted reference range : <=0.5. The reference r leo was not used to int erpret this result as normal/abnormal . [facility] CenterPARATHYROID AHQCJYN4613-92-42 05:10:00 Test Item Value Reference Range Interpretation Comments Ca Ion WB (test code = Ca Ion WB) 1.10 1.05-1.25 [facility] HospitalATHYROID KIEWBRG7151-60-80 05:10:00 Test Item Value Reference Range Interpretation Comments Ca Norm WB (test code = Ca Norm WB) 1.06 1.05-1.25 [facility] CenterCHEM KEWUB4819-64-69 05:10:00 Test Item Value Reference Range Interpretation Comments Glucose Lvl (test code = Glucose Lvl) 69 70-99 [facility]2021-08-09 05:10:00 Test Item Value Reference Range Interpretation Comments BUN (test code = BUN) 29 7-22 [facility]2021-08-09 05:10:00 Test Item Value Reference Range Interpretation Comments Creatinine Lvl (test code = Creatinine 5.14 0.50-1.40 Lvl) [facility]2021-08-09 05:10:00 Test Item Value Reference Range Interpretation Comments Sodium Lvl (test code = Sodium Lvl) 134 135-145 [facility]2021-08-09 05:10:00 Test Item Value Reference Range Interpretation Comments Potassium Lvl (test code = Potassium 5.1 3.5-5.1 Lvl) [facility]2021-08-09 05:10:00 Test Item Value Reference Range Interpretation Comments Chloride Lvl (test code = Chloride Lvl) 98 95-109 [facility]2021-08-09 05:10:00 Test Item Value Reference Range Interpretation Comments CO2 (test code = CO2) 29 24-32 [facility]2021-08-09 05:10:00 Test Item Value Reference Range Interpretation Comments Calcium Lvl (test code = Calcium Lvl) 7.6 8.5-10.5 [facility]2021-08-09 05:10:00 Test Item Value Reference Range Interpretation Comments AGAP (test code = AGAP) 12.1 10.0-20.0 [facility]2021-08-09 05:10:00 Test Item Value Reference Range Interpretation Comments eGFR (test code = eGFR) 10 [facility]2021-08-09 05:10:00 Test Item Value Reference Range Interpretation Comments Magnesium Lvl (test code = Magnesium 2.3 1.8-2.4 Lvl) [facility]2021-08-09 05:10:00 Test Item Value Reference Range Interpretation Comments Phosphorus (test code = Phosphorus) 5.0 2.5-4.5 [facility] CenterAmcdpsoEDCCDDDXJQ4523-30-06 05:10:00 Test Item Value Reference Range Interpretation Comments WBC (test code = WBC) 2.7 3.7-10.4 [place] 948411-08-09 05:10:00 Test Item Value Reference Range Interpretation Comments RBC (test code = RBC) 2.80 4.20-5.40 [facility] CenterQbqgtybYMUJXRIUME4629-33-21 05:10:00 Test Item Value Reference Range Interpretation Comments Hgb (test code = Hgb) 8.5 12.0-16.0 [place] 948411-08-09 05:10:00 Test Item Value Reference Range Interpretation Comments Hct (test code = Hct) 25.7 36.0-48.0 [facility] CenterWyaqzhxALHTWBJKVW5527-14-73 05:10:00 Test Item Value Reference Range Interpretation Comments MCV (test code = MCV) 91.7 80.0-98.0 [facility] CenterHdxohlxFGRUCZPFKW6866-35-34 05:10:00 Test Item Value Reference Range Interpretation Comments MCH (test code = MCH) 30.4 pg 27.0-31.0 [facility] CenterXrdtydlKITSWUMETV6429-84-52 05:10:00 Test Item Value Reference Range Interpretation Comments MCHC (test code = MCHC) 33.1 32.0-36.0 [facility] CenterEngwamlIZVVAFMPNT3807-51-61 05:10:00 Test Item Value Reference Range Interpretation Comments RDW (test code = RDW) 19.2 11.5-14.5 [facility] CenterSzrhbvrMXXSUIEKPT1411-79-84 05:10:00 Test Item Value Reference Range Interpretation Comments Platelet (test code = Platelet) 72 133-450 [facility] CenterIetlcsmNAZRVAFQDR9956-86-77 05:10:00 Test Item Value Reference Range Interpretation Comments MPV (test code = MPV) 9.9 7.4-10.4 [facility] CenterIlsgtzdUHFFGAJSQQ0718-11-68 05:10:00 Test Item Value Reference Range Interpretation Comments Segs (test code = Segs) 72.6 45.0-75.0 [facility] CenterCvjzhcyKCSMAJMQEG2630-74-32 05:10:00 Test Item Value Reference Range Interpretation Comments Lymphocytes (test code = Lymphocytes) 15.9 20.0-40.0 [place] 948411-08-09 05:10:00 Test Item Value Reference Range Interpretation Comments Monocytes (test code = Monocytes) 7.3 2.0-12.0 [facility] CenterBjeucnsXUJLAEJLWF4869-54-02 05:10:00 Test Item Value Reference Range Interpretation Comments Eosinophils (test code = 3.4 See_Comment [A utomated message] The Eosinophils) system which ge nerated this result tra nsmitted reference range : <=4.0. The reference r leo was not used to int erpret this result as normal/abnormal . [facility] CenterNypmhfnEJDDKHNKUV0818-73-90 05:10:00 Test Item Value Reference Range Interpretation Comments Basophils (test code = 0.8 See_Comment [Aut omated message] The Basophils) system which ge nerated this result tra nsmitted reference range : <=1.0. The reference r leo was not used to int erpret this result as normal/abnormal . [facility] CenterLkijevoHIGQGGKJEE7266-46-67 05:10:00 Test Item Value Reference Range Interpretation Comments Neutrophils # (test code = Neutrophils 1.9 1.5-8.1 #) [facility] CenterWpulkeoVBZZZVTUCQ9126-43-03 05:10:00 Test Item Value Reference Range Interpretation Comments Lymphocytes # (test code = Lymphocytes 0.4 1.0-5.5 #) [facility] CenterXqzzwpoLZPQVAMDOV3040-91-33 05:10:00 Test Item Value Reference Range Interpretation Comments Monocytes # (test code 0.2 See_Comment [Aut omated message] The = Monocytes #) system which generated this result tra nsmitted reference range : <=0.8. The reference r leo was not used to int erpret this result as normal/abnormal . [facility] CenterRdzscdfDJTDWGOPZB8301-51-59 05:10:00 Test Item Value Reference Range Interpretation Comments Eosinophils # (test code 0.1 See_Comment [A utomated message] The = Eosinophils #) system whic h generated this result tra nsmitted reference range : <=0.5. The reference r leo was not used to int erpret this result as normal/abnormal . [facility] CenterPARATHYROID NGDDNVN7906-15-02 05:10:00 Test Item Value Reference Range Interpretation Comments Ca Ion WB (test code = Ca Ion WB) 1.10 1.05-1.25 [facility]ATHYROID VWZVUGV5741-77-97 05:10:00 Test Item Value Reference Range Interpretation Comments Ca Norm WB (test code = Ca Norm WB) 1.06 1.05-1.25 [facility] CenterCHEM EIXOM4048-19-18 05:10:00 Test Item Value Reference Range Interpretation Comments Glucose Lvl (test code = Glucose Lvl) 69 70-99 [facility]2021-08-09 05:10:00 Test Item Value Reference Range Interpretation Comments BUN (test code = BUN) 29 7-22 [facility]2021-08-09 05:10:00 Test Item Value Reference Range Interpretation Comments Creatinine Lvl (test code = Creatinine 5.14 0.50-1.40 Lvl) [facility]2021-08-09 05:10:00 Test Item Value Reference Range Interpretation Comments Sodium Lvl (test code = Sodium Lvl) 134 135-145 [facility]2021-08-09 05:10:00 Test Item Value Reference Range Interpretation Comments Potassium Lvl (test code = Potassium 5.1 3.5-5.1 Lvl) [facility]2021-08-09 05:10:00 Test Item Value Reference Range Interpretation Comments Chloride Lvl (test code = Chloride Lvl) 98 95-109 [facility]2021-08-09 05:10:00 Test Item Value Reference Range Interpretation Comments CO2 (test code = CO2) 29 24-32 [facility]2021-08-09 05:10:00 Test Item Value Reference Range Interpretation Comments Calcium Lvl (test code = Calcium Lvl) 7.6 8.5-10.5 [facility]2021-08-09 05:10:00 Test Item Value Reference Range Interpretation Comments AGAP (test code = AGAP) 12.1 10.0-20.0 [facility]2021-08-09 05:10:00 Test Item Value Reference Range Interpretation Comments eGFR (test code = eGFR) 10 [facility]2021-08-09 05:10:00 Test Item Value Reference Range Interpretation Comments Magnesium Lvl (test code = Magnesium 2.3 1.8-2.4 Lvl) [facility]2021-08-09 05:10:00 Test Item Value Reference Range Interpretation Comments Phosphorus (test code = Phosphorus) 5.0 2.5-4.5 [facility] CenterYunrsufQJSQKFNKSS3068-31-33 05:10:00 Test Item Value Reference Range Interpretation Comments WBC (test code = WBC) 2.7 3.7-10.4 [place] 948411-08-09 05:10:00 Test Item Value Reference Range Interpretation Comments RBC (test code = RBC) 2.80 4.20-5.40 [facility] CenterIxjfxfuEFVSJKEGTV7973-96-41 05:10:00 Test Item Value Reference Range Interpretation Comments Hgb (test code = Hgb) 8.5 12.0-16.0 [place] 948411-08-09 05:10:00 Test Item Value Reference Range Interpretation Comments Hct (test code = Hct) 25.7 36.0-48.0 [facility] CenterUmfavusOKSSRRKWZV1713-74-42 05:10:00 Test Item Value Reference Range Interpretation Comments MCV (test code = MCV) 91.7 80.0-98.0 [facility] CenterGdrvqntMIWKNVWIYG7933-58-45 05:10:00 Test Item Value Reference Range Interpretation Comments MCH (test code = MCH) 30.4 pg 27.0-31.0 [facility] CenterLvzmtjqXTIZPEUXUM7524-89-09 05:10:00 Test Item Value Reference Range Interpretation Comments MCHC (test code = MCHC) 33.1 32.0-36.0 [facility] CenterZfxpfznWANZUNCWQY9128-60-13 05:10:00 Test Item Value Reference Range Interpretation Comments RDW (test code = RDW) 19.2 11.5-14.5 [facility] CenterDztiecyXZYJZLKXGU8516-17-11 05:10:00 Test Item Value Reference Range Interpretation Comments Platelet (test code = Platelet) 72 133-450 [facility] CenterMriqxhzQXGTELLFZN4082-85-90 05:10:00 Test Item Value Reference Range Interpretation Comments MPV (test code = MPV) 9.9 7.4-10.4 [facility] CenterSbyrphcXNGUQFMJZW1490-52-52 05:10:00 Test Item Value Reference Range Interpretation Comments Segs (test code = Segs) 72.6 45.0-75.0 [facility] CenterObhbwcpUJEHCIMUEJ8725-72-86 05:10:00 Test Item Value Reference Range Interpretation Comments Lymphocytes (test code = Lymphocytes) 15.9 20.0-40.0 [place] 948411-08-09 05:10:00 Test Item Value Reference Range Interpretation Comments Monocytes (test code = Monocytes) 7.3 2.0-12.0 [facility] CenterNdqvbmjCWCJBKCKYS8682-33-56 05:10:00 Test Item Value Reference Range Interpretation Comments Eosinophils (test code = 3.4 See_Comment [A utomated message] The Eosinophils) system which ge nerated this result tra nsmitted reference range : <=4.0. The reference r leo was not used to int erpret this result as normal/abnormal . [facility] CenterUzgtseeSYPJWFCUOQ8328-79-69 05:10:00 Test Item Value Reference Range Interpretation Comments Basophils (test code = 0.8 See_Comment [Aut omated message] The Basophils) system which ge nerated this result tra nsmitted reference range : <=1.0. The reference r leo was not used to int erpret this result as normal/abnormal . [facility] CenterYrnbpjrBPNJINXSLM2946-96-94 05:10:00 Test Item Value Reference Range Interpretation Comments Neutrophils # (test code = Neutrophils 1.9 1.5-8.1 #) [facility] CenterRincaxmPRJDRGJCKZ2196-55-02 05:10:00 Test Item Value Reference Range Interpretation Comments Lymphocytes # (test code = Lymphocytes 0.4 1.0-5.5 #) [facility] CenterMudlxkgRQGKCULLGQ3675-57-05 05:10:00 Test Item Value Reference Range Interpretation Comments Monocytes # (test code 0.2 See_Comment [Aut omated message] The = Monocytes #) system which generated this result tra nsmitted reference range : <=0.8. The reference r leo was not used to int erpret this result as normal/abnormal . [facility] CenterPmunkeeBGTRQJFEVQ0810-56-59 05:10:00 Test Item Value Reference Range Interpretation Comments Eosinophils # (test code 0.1 See_Comment [A utomated message] The = Eosinophils #) system whic h generated this result tra nsmitted reference range : <=0.5. The reference r leo was not used to int erpret this result as normal/abnormal . [facility] CenterPARATHYROID XPSIGLO0198-18-63 05:10:00 Test Item Value Reference Range Interpretation Comments Ca Ion WB (test code = Ca Ion WB) 1.10 1.05-1.25 [facility]ATHY[facility]ID JPKTKPK9448-72-16 05:10:00 Test Item Value Reference Range Interpretation Comments Ca Norm WB (test code = Ca Norm WB) 1.06 1.05-1.25 [facility] CenterCHEM MXANQ1031-91-35 05:10:00 Test Item Value Reference Range Interpretation Comments Glucose Lvl (test code = Glucose Lvl) 69 70-99 [facility]2021-08-09 05:10:00 Test Item Value Reference Range Interpretation Comments BUN (test code = BUN) 29 7-22 [facility]2021-08-09 05:10:00 Test Item Value Reference Range Interpretation Comments Creatinine Lvl (test code = Creatinine 5.14 0.50-1.40 Lvl) [facility]2021-08-09 05:10:00 Test Item Value Reference Range Interpretation Comments Sodium Lvl (test code = Sodium Lvl) 134 135-145 [facility]2021-08-09 05:10:00 Test Item Value Reference Range Interpretation Comments Potassium Lvl (test code = Potassium 5.1 3.5-5.1 Lvl) [facility]2021-08-09 05:10:00 Test Item Value Reference Range Interpretation Comments Chloride Lvl (test code = Chloride Lvl) 98 95-109 [facility]2021-08-09 05:10:00 Test Item Value Reference Range Interpretation Comments CO2 (test code = CO2) 29 24-32 [facility]2021-08-09 05:10:00 Test Item Value Reference Range Interpretation Comments Calcium Lvl (test code = Calcium Lvl) 7.6 8.5-10.5 [facility]2021-08-09 05:10:00 Test Item Value Reference Range Interpretation Comments AGAP (test code = AGAP) 12.1 10.0-20.0 [facility]2021-08-09 05:10:00 Test Item Value Reference Range Interpretation Comments eGFR (test code = eGFR) 10 [facility]2021-08-09 05:10:00 Test Item Value Reference Range Interpretation Comments Magnesium Lvl (test code = Magnesium 2.3 1.8-2.4 Lvl) [facility]2021-08-09 05:10:00 Test Item Value Reference Range Interpretation Comments Phosphorus (test code = Phosphorus) 5.0 2.5-4.5 [facility] CenterMlgobvyDAOVYADRRQ8881-76-50 05:10:00 Test Item Value Reference Range Interpretation Comments WBC (test code = WBC) 2.7 3.7-10.4 [place] 948411-08-09 05:10:00 Test Item Value Reference Range Interpretation Comments RBC (test code = RBC) 2.80 4.20-5.40 [facility] CenterVylbsxmBPXJTYRKOD3198-59-78 05:10:00 Test Item Value Reference Range Interpretation Comments Hgb (test code = Hgb) 8.5 12.0-16.0 [place] 948411-08-09 05:10:00 Test Item Value Reference Range Interpretation Comments Hct (test code = Hct) 25.7 36.0-48.0 [facility] CenterWbdvwmaTADWYIIGQJ4775-63-26 05:10:00 Test Item Value Reference Range Interpretation Comments MCV (test code = MCV) 91.7 80.0-98.0 [facility] CenterFprimnrUKUYNUUKEY9598-13-55 05:10:00 Test Item Value Reference Range Interpretation Comments MCH (test code = MCH) 30.4 pg 27.0-31.0 [facility] CenterKiovawhVULIHQDQTU5959-70-22 05:10:00 Test Item Value Reference Range Interpretation Comments MCHC (test code = MCHC) 33.1 32.0-36.0 [facility] CenterAwyetquOLJEYRRTQT5766-15-25 05:10:00 Test Item Value Reference Range Interpretation Comments RDW (test code = RDW) 19.2 11.5-14.5 [facility] CenterErjwjiyKTDDGZNUTC3387-82-30 05:10:00 Test Item Value Reference Range Interpretation Comments Platelet (test code = Platelet) 72 133-450 [facility] CenterRgtnjqeXFROWPECQD4870-00-70 05:10:00 Test Item Value Reference Range Interpretation Comments MPV (test code = MPV) 9.9 7.4-10.4 [facility] CenterUwwwpyzISJVQYTIVG1447-26-89 05:10:00 Test Item Value Reference Range Interpretation Comments Segs (test code = Segs) 72.6 45.0-75.0 [facility] CenterLzhfcsvLGTMYNYSJW8108-79-63 05:10:00 Test Item Value Reference Range Interpretation Comments Lymphocytes (test code = Lymphocytes) 15.9 20.0-40.0 [place] 948411-08-09 05:10:00 Test Item Value Reference Range Interpretation Comments Monocytes (test code = Monocytes) 7.3 2.0-12.0 [facility] CenterBscaxnhOLIHOPGGLG5665-11-45 05:10:00 Test Item Value Reference Range Interpretation Comments Eosinophils (test code = 3.4 See_Comment [A utomated message] The Eosinophils) system which ge nerated this result tra nsmitted reference range : <=4.0. The reference r leo was not used to int erpret this result as normal/abnormal . [facility] CenterMuflqogGIBOQNRRAG6298-42-91 05:10:00 Test Item Value Reference Range Interpretation Comments Basophils (test code = 0.8 See_Comment [Aut omated message] The Basophils) system which ge nerated this result tra nsmitted reference range : <=1.0. The reference r leo was not used to int erpret this result as normal/abnormal . [facility] CenterBadlsqkXCDHHWNKOA8028-84-54 05:10:00 Test Item Value Reference Range Interpretation Comments Neutrophils # (test code = Neutrophils 1.9 1.5-8.1 #) [facility]AhdgzfwHMEGJBDTMD4859-03-43 05:10:00 Test Item Value Reference Range Interpretation Comments Lymphocytes # (test code = Lymphocytes 0.4 1.0-5.5 #) [facility] CenterMtqokhrEBYKSXEYXL8261-16-77 05:10:00 Test Item Value Reference Range Interpretation Comments Monocytes # (test code 0.2 See_Comment [Aut omated message] The = Monocytes #) system which generated this result tra nsmitted reference range : <=0.8. The reference r leo was not used to int erpret this result as normal/abnormal . [facility] CenterFqtrcqsMWHZWTMLPN2222-96-01 05:10:00 Test Item Value Reference Range Interpretation Comments Eosinophils # (test code 0.1 See_Comment [A utomated message] The = Eosinophils #) system whic h generated this result tra nsmitted reference range : <=0.5. The reference r leo was not used to int erpret this result as normal/abnormal . [facility] CenterPARATHYROID VHFAPFI7960-15-54 05:10:00 Test Item Value Reference Range Interpretation Comments Ca Ion WB (test code = Ca Ion WB) 1.10 1.05-1.25 [facility] CenterPARATHYROID [id number] 05:10:00 Test Item Value Reference Range Interpretation Comments Ca Norm WB (test code = Ca Norm WB) 1.06 1.05-1.25 [facility]annMOLECULAR [id number] 18:36:00 Test Item Value Reference Range Interpretation Comments C difficile DNA (test Negative (01/26/21 1:36 code = C difficile DNA) PM) [facility]2021-08-08 18:36:00 Test Item Value Reference Range Interpretation Comments C difficile DNA (test Negative (01/26/21 1:36 code = C difficile DNA) PM) [facility]2021-08-08 18:36:00 Test Item Value Reference Range Interpretation Comments C difficile DNA (test Negative (01/26/21 1:36 code = C difficile DNA) PM) [facility]2021-08-08 18:36:00 Test Item Value Reference Range Interpretation Comments C difficile DNA (test Negative (01/26/21 1:36 code = C difficile DNA) PM) [facility]2021-08-08 18:36:00 Test Item Value Reference Range Interpretation Comments C difficile DNA (test Negative (01/26/21 1:36 code = C difficile DNA) PM) [facility]2021-08-08 07:33:00 Test Item Value Reference Range Interpretation Comments Ca Ion WB (test code = Ca Ion WB) 1.12 1.05-1.25 [facility]2021-08-08 07:33:00 Test Item Value Reference Range Interpretation Comments Ca Norm WB (test code = Ca Norm WB) 1.07 1.05-1.25 [facility]2021-08-08 07:33:00 Test Item Value Reference Range Interpretation Comments Ca Ion WB (test code = Ca Ion WB) 1.12 1.05-1.25 [facility]2021-08-08 07:33:00 Test Item Value Reference Range Interpretation Comments Ca Norm WB (test code = Ca Norm WB) 1.07 1.05-1.25 [facility]2021-08-08 07:33:00 Test Item Value Reference Range Interpretation Comments Ca Ion WB (test code = Ca Ion WB) 1.12 1.05-1.25 [facility]2021-08-08 07:33:00 Test Item Value Reference Range Interpretation Comments Ca Norm WB (test code = Ca Norm WB) 1.07 1.05-1.25 [place] 558821-08-08 07:33:00 Test Item Value Reference Range Interpretation Comments Ca Ion WB (test code = Ca Ion WB) 1.12 1.05-1.25 [place] 558821-08-08 07:33:00 Test Item Value Reference Range Interpretation Comments Ca Norm WB (test code = Ca Norm WB) 1.07 1.05-1.25 [place] 558821-08-08 07:33:00 Test Item Value Reference Range Interpretation Comments Ca Ion WB (test code = Ca Ion WB) 1.12 1.05-1.25 [place] 558821-08-08 07:33:00 Test Item Value Reference Range Interpretation Comments Ca Norm WB (test code = Ca Norm WB) 1.07 1.05-1.25 [place] 469941-08-08 07:30:00 Test Item Value Reference Range Interpretation Comments Glucose Lvl (test code = Glucose Lvl) 65 70-99 [place] 469941-08-08 07:30:00 Test Item Value Reference Range Interpretation Comments BUN (test code = BUN) 21 7-22 [place] 469941-08-08 07:30:00 Test Item Value Reference Range Interpretation Comments Creatinine Lvl (test code = Creatinine 4.18 0.50-1.40 Lvl) [place] 469941-08-08 07:30:00 Test Item Value Reference Range Interpretation Comments Sodium Lvl (test code = Sodium Lvl) 136 135-145 [place] 469941-08-08 07:30:00 Test Item Value Reference Range Interpretation Comments Potassium Lvl (test code = Potassium 4.5 3.5-5.1 Lvl) [place] 469941-08-08 07:30:00 Test Item Value Reference Range Interpretation Comments Chloride Lvl (test code = Chloride Lvl) 99 95-109 [place] 469941-08-08 07:30:00 Test Item Value Reference Range Interpretation Comments CO2 (test code = CO2) 31 24-32 [place] 469941-08-08 07:30:00 Test Item Value Reference Range Interpretation Comments AGAP (test code = AGAP) 10.5 10.0-20.0 [place] 469941-08-08 07:30:00 Test Item Value Reference Range Interpretation Comments Calcium Lvl (test code = Calcium Lvl) 7.9 8.5-10.5 [place] 469941-08-08 07:30:00 Test Item Value Reference Range Interpretation Comments eGFR (test code = eGFR) 13 [place] 469941-08-08 07:30:00 Test Item Value Reference Range Interpretation Comments Magnesium Lvl (test code = Magnesium 2.2 1.8-2.4 Lvl) [place] 469941-08-08 07:30:00 Test Item Value Reference Range Interpretation Comments Phosphorus (test code = Phosphorus) 4.4 2.5-4.5 [place] 948411-08-08 07:30:00 Test Item Value Reference Range Interpretation Comments WBC (test code = WBC) 2.3 3.7-10.4 [place] 948411-08-08 07:30:00 Test Item Value Reference Range Interpretation Comments RBC (test code = RBC) 2.88 4.20-5.40 [place] 948411-08-08 07:30:00 Test Item Value Reference Range Interpretation Comments Hgb (test code = Hgb) 8.6 12.0-16.0 [place] 948411-08-08 07:30:00 Test Item Value Reference Range Interpretation Comments Hct (test code = Hct) 26.6 36.0-48.0 [place] 948411-08-08 07:30:00 Test Item Value Reference Range Interpretation Comments MCV (test code = MCV) 92.2 80.0-98.0 [place] 948411-08-08 07:30:00 Test Item Value Reference Range Interpretation Comments MCH (test code = MCH) 29.8 pg 27.0-31.0 [place] 948411-08-08 07:30:00 Test Item Value Reference Range Interpretation Comments MCHC (test code = MCHC) 32.4 32.0-36.0 [place] [address]-08-08 07:30:00 Test Item Value Reference Range Interpretation Comments RDW (test code = RDW) 19.7 11.5-14.5 [place] 948411-08-08 07:30:00 Test Item Value Reference Range Interpretation Comments Platelet (test code = Platelet) 83 133-450 [place] 948411-08-08 07:30:00 Test Item Value Reference Range Interpretation Comments MPV (test code = MPV) 10.2 7.4-10.4 [place] 948411-08-08 07:30:00 Test Item Value Reference Range Interpretation Comments Segs (test code = Segs) 64.0 45.0-75.0 [place] 948411-08-08 07:30:00 Test Item Value Reference Range Interpretation Comments Lymphocytes (test code = Lymphocytes) 24.1 20.0-40.0 [place] 948411-08-08 07:30:00 Test Item Value Reference Range Interpretation Comments Monocytes (test code = Monocytes) 7.0 2.0-12.0 [place] 948411-08-08 07:30:00 Test Item Value Reference Range Interpretation Comments Eosinophils (test code = 3.7 See_Comment [A utomated message] The Eosinophils) system which ge nerated this result tra nsmitted reference range : <=4.0. The reference r leo was not used to int erpret this result as normal/abnormal . [facility] CenterVdyyseiZRWRRNCAPO8593-21-71 07:30:00 Test Item Value Reference Range Interpretation Comments Basophils (test code = 1.2 See_Comment [Aut omated message] The Basophils) system which ge nerated this result tra nsmitted reference range : <=1.0. The reference r leo was not used to int erpret this result as normal/abnormal . [place] 948411-08-08 07:30:00 Test Item Value Reference Range Interpretation Comments Neutrophils # (test code = Neutrophils 1.5 1.5-8.1 #) [place] 948411-08-08 07:30:00 Test Item Value Reference Range Interpretation Comments Lymphocytes # (test code = Lymphocytes 0.6 1.0-5.5 #) [facility] CenterXxmmiucMFPZDQNXZR2317-79-86 07:30:00 Test Item Value Reference Range Interpretation Comments Monocytes # (test code 0.2 See_Comment [Aut omated message] The = Monocytes #) system which generated this result tra nsmitted reference range : <=0.8. The reference r leo was not used to int erpret this result as normal/abnormal . [place] 948411-08-08 07:30:00 Test Item Value Reference Range Interpretation Comments Eosinophils # (test code 0.1 See_Comment [A utomated message] The = Eosinophils #) system whic h generated this result tra nsmitted reference range : <=0.5. The reference r leo was not used to int erpret this result as normal/abnormal . [place] 469941-08-08 07:30:00 Test Item Value Reference Range Interpretation Comments Glucose Lvl (test code = Glucose Lvl) 65 70-99 [place] 469941-08-08 07:30:00 Test Item Value Reference Range Interpretation Comments BUN (test code = BUN) 21 7-22 [place] 469941-08-08 07:30:00 Test Item Value Reference Range Interpretation Comments Creatinine Lvl (test code = Creatinine 4.18 0.50-1.40 Lvl) [place] 469941-08-08 07:30:00 Test Item Value Reference Range Interpretation Comments Sodium Lvl (test code = Sodium Lvl) 136 135-145 [place] 469941-08-08 07:30:00 Test Item Value Reference Range Interpretation Comments Potassium Lvl (test code = Potassium 4.5 3.5-5.1 Lvl) [place] 469941-08-08 07:30:00 Test Item Value Reference Range Interpretation Comments Chloride Lvl (test code = Chloride Lvl) 99 95-109 [place] 469941-08-08 07:30:00 Test Item Value Reference Range Interpretation Comments CO2 (test code = CO2) 31 24-32 [place] 469941-08-08 07:30:00 Test Item Value Reference Range Interpretation Comments AGAP (test code = AGAP) 10.5 10.0-20.0 [place] 469941-08-08 07:30:00 Test Item Value Reference Range Interpretation Comments Calcium Lvl (test code = Calcium Lvl) 7.9 8.5-10.5 [place] 469941-08-08 07:30:00 Test Item Value Reference Range Interpretation Comments eGFR (test code = eGFR) 13 [place] 469941-08-08 07:30:00 Test Item Value Reference Range Interpretation Comments Magnesium Lvl (test code = Magnesium 2.2 1.8-2.4 Lvl) [facility]2021-08-08 07:30:00 Test Item Value Reference Range Interpretation Comments Phosphorus (test code = Phosphorus) 4.4 2.5-4.5 [facility] CenterGaazzjmBEFXOQBSCI0583-58-32 07:30:00 Test Item Value Reference Range Interpretation Comments WBC (test code = WBC) 2.3 3.7-10.4 [facility] CenterDgxtbtoMGLNCBXZNR7181-35-05 07:30:00 Test Item Value Reference Range Interpretation Comments RBC (test code = RBC) 2.88 4.20-5.40 [place] 948411-08-08 07:30:00 Test Item Value Reference Range Interpretation Comments Hgb (test code = Hgb) 8.6 12.0-16.0 [place] 948411-08-08 07:30:00 Test Item Value Reference Range Interpretation Comments Hct (test code = Hct) 26.6 36.0-48.0 [facility] CenterMdlqtraMQAQAEXYHX3889-04-21 07:30:00 Test Item Value Reference Range Interpretation Comments MCV (test code = MCV) 92.2 80.0-98.0 [place] 948411-08-08 07:30:00 Test Item Value Reference Range Interpretation Comments MCH (test code = MCH) 29.8 pg 27.0-31.0 [facility] CenterQronjptHHYBEGOASK1504-14-81 07:30:00 Test Item Value Reference Range Interpretation Comments MCHC (test code = MCHC) 32.4 32.0-36.0 [facility] CenterLvkuzrgSZANMANPZN6281-81-72 07:30:00 Test Item Value Reference Range Interpretation Comments RDW (test code = RDW) 19.7 11.5-14.5 [place] 948411-08-08 07:30:00 Test Item Value Reference Range Interpretation Comments Platelet (test code = Platelet) 83 133-450 [facility] CenterQqdcjrwNHTGECRNMF5052-28-19 07:30:00 Test Item Value Reference Range Interpretation Comments MPV (test code = MPV) 10.2 7.4-10.4 [facility] CenterZnscfbwNTMMTLRHVO5472-22-72 07:30:00 Test Item Value Reference Range Interpretation Comments Segs (test code = Segs) 64.0 45.0-75.0 [facility] CenterZumlknpPTVUFBBCMM0053-01-11 07:30:00 Test Item Value Reference Range Interpretation Comments Lymphocytes (test code = Lymphocytes) 24.1 20.0-40.0 [facility] CenterKsncdrxTTHUZWWUEB1422-00-31 07:30:00 Test Item Value Reference Range Interpretation Comments Monocytes (test code = Monocytes) 7.0 2.0-12.0 [facility] CenterYtymyjwTCUDTFTEVZ5802-46-07 07:30:00 Test Item Value Reference Range Interpretation Comments Eosinophils (test code = 3.7 See_Comment [A utomated message] The Eosinophils) system which ge nerated this result tra nsmitted reference range : <=4.0. The reference r leo was not used to int erpret this result as normal/abnormal . [facility] CenterNxhehznDVEZDUQIIZ4205-37-85 07:30:00 Test Item Value Reference Range Interpretation Comments Basophils (test code = 1.2 See_Comment [Aut omated message] The Basophils) system which ge nerated this result tra nsmitted reference range : <=1.0. The reference r leo was not used to int erpret this result as normal/abnormal . [facility] CenterRkzpsmuZAVDTFWHPA9218-62-92 07:30:00 Test Item Value Reference Range Interpretation Comments Neutrophils # (test code = Neutrophils 1.5 1.5-8.1 #) [facility] CenterGajwrjgUEDYLNGSWI0599-95-36 07:30:00 Test Item Value Reference Range Interpretation Comments Lymphocytes # (test code = Lymphocytes 0.6 1.0-5.5 #) [facility] CenterRfwjozvUNAVIDPZEB3256-61-39 07:30:00 Test Item Value Reference Range Interpretation Comments Monocytes # (test code 0.2 See_Comment [Aut omated message] The = Monocytes #) system which generated this result tra nsmitted reference range : <=0.8. The reference r leo was not used to int erpret this result as normal/abnormal . [facility] CenterLlpopizCXGTDUAILU7631-43-73 07:30:00 Test Item Value Reference Range Interpretation Comments Eosinophils # (test code 0.1 See_Comment [A utomated message] The = Eosinophils #) system ic h generated this result tra nsmitted reference range : <=0.5. The reference r leo was not used to int erpret this result as normal/abnormal . [place] 469941-08-08 07:30:00 Test Item Value Reference Range Interpretation Comments Glucose Lvl (test code = Glucose Lvl) 65 70-99 [place] 469941-08-08 07:30:00 Test Item Value Reference Range Interpretation Comments BUN (test code = BUN) 21 7-22 [place] 469941-08-08 07:30:00 Test Item Value Reference Range Interpretation Comments Creatinine Lvl (test code = Creatinine 4.18 0.50-1.40 Lvl) [place] 469941-08-08 07:30:00 Test Item Value Reference Range Interpretation Comments Sodium Lvl (test code = Sodium Lvl) 136 135-145 [place] 469941-08-08 07:30:00 Test Item Value Reference Range Interpretation Comments Potassium Lvl (test code = Potassium 4.5 3.5-5.1 Lvl) [place] 469941-08-08 07:30:00 Test Item Value Reference Range Interpretation Comments Chloride Lvl (test code = Chloride Lvl) 99 95-109 [place] 469941-08-08 07:30:00 Test Item Value Reference Range Interpretation Comments CO2 (test code = CO2) 31 24-32 [place] 469941-08-08 07:30:00 Test Item Value Reference Range Interpretation Comments AGAP (test code = AGAP) 10.5 10.0-20.0 [place] 469941-08-08 07:30:00 Test Item Value Reference Range Interpretation Comments Calcium Lvl (test code = Calcium Lvl) 7.9 8.5-10.5 [facility]2021-08-08 07:30:00 Test Item Value Reference Range Interpretation Comments eGFR (test code = eGFR) 13 [place] 469941-08-08 07:30:00 Test Item Value Reference Range Interpretation Comments Magnesium Lvl (test code = Magnesium 2.2 1.8-2.4 Lvl) [place] 469941-08-08 07:30:00 Test Item Value Reference Range Interpretation Comments Phosphorus (test code = Phosphorus) 4.4 2.5-4.5 [facility] CenterPuatazdJBPNFHPVRG4040-95-96 07:30:00 Test Item Value Reference Range Interpretation Comments WBC (test code = WBC) 2.3 3.7-10.4 [facility] CenterGztgkygDZRXCKEDGB7753-63-69 07:30:00 Test Item Value Reference Range Interpretation Comments RBC (test code = RBC) 2.88 4.20-5.40 [facility] CenterDbkicwrTHIBUVVIUM6793-30-30 07:30:00 Test Item Value Reference Range Interpretation Comments Hgb (test code = Hgb) 8.6 12.0-16.0 [facility] CenterDvqimifGWDBGILTHM5036-49-67 07:30:00 Test Item Value Reference Range Interpretation Comments Hct (test code = Hct) 26.6 36.0-48.0 [facility] CenterAiaxtccURGXMTIKPS7625-10-07 07:30:00 Test Item Value Reference Range Interpretation Comments MCV (test code = MCV) 92.2 80.0-98.0 [facility] CenterZlsynvtMNHANZHVVF7586-15-57 07:30:00 Test Item Value Reference Range Interpretation Comments MCH (test code = MCH) 29.8 pg 27.0-31.0 [facility] CenterCopchxxOMUQVYZIIN8422-56-62 07:30:00 Test Item Value Reference Range Interpretation Comments MCHC (test code = MCHC) 32.4 32.0-36.0 [facility] CenterPqaytvrPTWRHBUZNG7637-55-77 07:30:00 Test Item Value Reference Range Interpretation Comments RDW (test code = RDW) 19.7 11.5-14.5 [facility] CenterZtoabcqDIDURONUIQ0164-48-90 07:30:00 Test Item Value Reference Range Interpretation Comments Platelet (test code = Platelet) 83 133-450 [facility] CenterAdusnieWSSDMVAOIF6551-42-11 07:30:00 Test Item Value Reference Range Interpretation Comments MPV (test code = MPV) 10.2 7.4-10.4 [facility] CenterOgdpgphAFNOQMNUCG9689-86-98 07:30:00 Test Item Value Reference Range Interpretation Comments Segs (test code = Segs) 64.0 45.0-75.0 [facility] CenterIcaolwrISQPUQUDBX4486-33-81 07:30:00 Test Item Value Reference Range Interpretation Comments Lymphocytes (test code = Lymphocytes) 24.1 20.0-40.0 [place] 948411-08-08 07:30:00 Test Item Value Reference Range Interpretation Comments Monocytes (test code = Monocytes) 7.0 2.0-12.0 [place] 948411-08-08 07:30:00 Test Item Value Reference Range Interpretation Comments Eosinophils (test code = 3.7 See_Comment [A utomated message] The Eosinophils) system which ge nerated this result tra nsmitted reference range : <=4.0. The reference r leo was not used to int erpret this result as normal/abnormal . [place] 948411-08-08 07:30:00 Test Item Value Reference Range Interpretation Comments Basophils (test code = 1.2 See_Comment [Aut omated message] The Basophils) system which ge nerated this result tra nsmitted reference range : <=1.0. The reference r leo was not used to int erpret this result as normal/abnormal . [place] 948411-08-08 07:30:00 Test Item Value Reference Range Interpretation Comments Neutrophils # (test code = Neutrophils 1.5 1.5-8.1 #) [place] 948411-08-08 07:30:00 Test Item Value Reference Range Interpretation Comments Lymphocytes # (test code = Lymphocytes 0.6 1.0-5.5 #) [place] 948411-08-08 07:30:00 Test Item Value Reference Range Interpretation Comments Monocytes # (test code 0.2 See_Comment [Aut omated message] The = Monocytes #) system which generated this result tra nsmitted reference range : <=0.8. The reference r leo was not used to int erpret this result as normal/abnormal . [facility] CenterLeagbyjWVOMJNQFNX7801-58-08 07:30:00 Test Item Value Reference Range Interpretation Comments Eosinophils # (test code 0.1 See_Comment [A utomated message] The = Eosinophils #) system whic h generated this result tra nsmitted reference range : <=0.5. The reference r leo was not used to int erpret this result as normal/abnormal . [facility]Technim[facility] SNEJK6585-88-71 07:30:00 Test Item Value Reference Range Interpretation Comments Glucose Lvl (test code = Glucose Lvl) 65 70-99 [facility] CenterTechnim[facility] CTIHW9034-05-52 07:30:00 Test Item Value Reference Range Interpretation Comments BUN (test code = BUN) 21 7-22 [facility] CenterTechnim[facility] [id number] 07:30:00 Test Item Value Reference Range Interpretation Comments Creatinine Lvl (test code = Creatinine 4.18 0.50-1.40 Lvl) [place] 469941-08-08 07:30:00 Test Item Value Reference Range Interpretation Comments Sodium Lvl (test code = Sodium Lvl) 136 135-145 [place] 469941-08-08 07:30:00 Test Item Value Reference Range Interpretation Comments Potassium Lvl (test code = Potassium 4.5 3.5-5.1 Lvl) [place] 469941-08-08 07:30:00 Test Item Value Reference Range Interpretation Comments Chloride Lvl (test code = Chloride Lvl) 99 95-109 [place] 469941-08-08 07:30:00 Test Item Value Reference Range Interpretation Comments CO2 (test code = CO2) 31 24-32 [place] 469941-08-08 07:30:00 Test Item Value Reference Range Interpretation Comments AGAP (test code = AGAP) 10.5 10.0-20.0 [place] 469941-08-08 07:30:00 Test Item Value Reference Range Interpretation Comments Calcium Lvl (test code = Calcium Lvl) 7.9 8.5-10.5 [place] 469941-08-08 07:30:00 Test Item Value Reference Range Interpretation Comments eGFR (test code = eGFR) 13 [place] 469941-08-08 07:30:00 Test Item Value Reference Range Interpretation Comments Magnesium Lvl (test code = Magnesium 2.2 1.8-2.4 Lvl) [place] 469941-08-08 07:30:00 Test Item Value Reference Range Interpretation Comments Phosphorus (test code = Phosphorus) 4.4 2.5-4.5 [place] 948411-08-08 07:30:00 Test Item Value Reference Range Interpretation Comments WBC (test code = WBC) 2.3 3.7-10.4 [place] 948411-08-08 07:30:00 Test Item Value Reference Range Interpretation Comments RBC (test code = RBC) 2.88 4.20-5.40 [place] 16[address]-08-08 07:30:00 Test Item Value Reference Range Interpretation Comments Hgb (test code = Hgb) 8.6 12.0-16.0 [facility] CenterWlzutpbDBTOCVOCRI7058-47-88 07:30:00 Test Item Value Reference Range Interpretation Comments Hct (test code = Hct) 26.6 36.0-48.0 [facility] CenterFmgzdmlRZZNCFSSSN7726-60-89 07:30:00 Test Item Value Reference Range Interpretation Comments MCV (test code = MCV) 92.2 80.0-98.0 [facility] CenterZnkddwmULSQULBNQH6673-77-52 07:30:00 Test Item Value Reference Range Interpretation Comments MCH (test code = MCH) 29.8 pg 27.0-31.0 [facility] CenterOvwubryHSGDCZILDK7716-24-01 07:30:00 Test Item Value Reference Range Interpretation Comments MCHC (test code = MCHC) 32.4 32.0-36.0 [facility] CenterFujhbbeMJGDSSYSDK2302-37-18 07:30:00 Test Item Value Reference Range Interpretation Comments RDW (test code = RDW) 19.7 11.5-14.5 [facility] CenterZncnkocFYQOKOXVTL5213-59-50 07:30:00 Test Item Value Reference Range Interpretation Comments Platelet (test code = Platelet) 83 133-450 [facility] CenterKnmrcqsGCDUHMQIHS6635-05-69 07:30:00 Test Item Value Reference Range Interpretation Comments MPV (test code = MPV) 10.2 7.4-10.4 [facility] CenterGikycgiHGWZQLHSIP2664-73-48 07:30:00 Test Item Value Reference Range Interpretation Comments Segs (test code = Segs) 64.0 45.0-75.0 [facility] CenterVtaoitcKMUPWLOTOU9685-19-38 07:30:00 Test Item Value Reference Range Interpretation Comments Lymphocytes (test code = Lymphocytes) 24.1 20.0-40.0 [facility] CenterKcdhispMQOJLSAFIS7841-11-31 07:30:00 Test Item Value Reference Range Interpretation Comments Monocytes (test code = Monocytes) 7.0 2.0-12.0 [facility] CenterGnhrgojQNOYXOMJVV5613-24-23 07:30:00 Test Item Value Reference Range Interpretation Comments Eosinophils (test code = 3.7 See_Comment [A utomated message] The Eosinophils) system which ge nerated this result tra nsmitted reference range : <=4.0. The reference r leo was not used to int erpret this result as normal/abnormal . [facility] CenterJeyzljaCDZOHPHSVA0413-40-21 07:30:00 Test Item Value Reference Range Interpretation Comments Basophils (test code = 1.2 See_Comment [Aut omated message] The Basophils) system which ge nerated this result tra nsmitted reference range : <=1.0. The reference r leo was not used to int erpret this result as normal/abnormal . [place] 948411-08-08 07:30:00 Test Item Value Reference Range Interpretation Comments Neutrophils # (test code = Neutrophils 1.5 1.5-8.1 #) [place] 948411-08-08 07:30:00 Test Item Value Reference Range Interpretation Comments Lymphocytes # (test code = Lymphocytes 0.6 1.0-5.5 #) [place] 948411-08-08 07:30:00 Test Item Value Reference Range Interpretation Comments Monocytes # (test code 0.2 See_Comment [Aut omated message] The = Monocytes #) system which generated this result tra nsmitted reference range : <=0.8. The reference r leo was not used to int erpret this result as normal/abnormal . [place] 948411-08-08 07:30:00 Test Item Value Reference Range Interpretation Comments Eosinophils # (test code 0.1 See_Comment [A utomated message] The = Eosinophils #) system whic h generated this result tra nsmitted reference range : <=0.5. The reference r leo was not used to int erpret this result as normal/abnormal . [place] 469941-08-08 07:30:00 Test Item Value Reference Range Interpretation Comments Glucose Lvl (test code = Glucose Lvl) 65 70-99 [place] 469941-08-08 07:30:00 Test Item Value Reference Range Interpretation Comments BUN (test code = BUN) 21 7-22 [place] 469941-08-08 07:30:00 Test Item Value Reference Range Interpretation Comments Creatinine Lvl (test code = Creatinine 4.18 0.50-1.40 Lvl) [place] 469941-08-08 07:30:00 Test Item Value Reference Range Interpretation Comments Sodium Lvl (test code = Sodium Lvl) 136 135-145 [place] 469941-08-08 07:30:00 Test Item Value Reference Range Interpretation Comments Potassium Lvl (test code = Potassium 4.5 3.5-5.1 Lvl) [place] 469941-08-08 07:30:00 Test Item Value Reference Range Interpretation Comments Chloride Lvl (test code = Chloride Lvl) 99 95-109 [place] 469941-08-08 07:30:00 Test Item Value Reference Range Interpretation Comments CO2 (test code = CO2) 31 24-32 [place] 469941-08-08 07:30:00 Test Item Value Reference Range Interpretation Comments AGAP (test code = AGAP) 10.5 10.0-20.0 [place] 469941-08-08 07:30:00 Test Item Value Reference Range Interpretation Comments Calcium Lvl (test code = Calcium Lvl) 7.9 8.5-10.5 [place] 469941-08-08 07:30:00 Test Item Value Reference Range Interpretation Comments eGFR (test code = eGFR) 13 [place] 469941-08-08 07:30:00 Test Item Value Reference Range Interpretation Comments Magnesium Lvl (test code = Magnesium 2.2 1.8-2.4 Lvl) [place] 469941-08-08 07:30:00 Test Item Value Reference Range Interpretation Comments Phosphorus (test code = Phosphorus) 4.4 2.5-4.5 [place] 948411-08-08 07:30:00 Test Item Value Reference Range Interpretation Comments WBC (test code = WBC) 2.3 3.7-10.4 [place] 948411-08-08 07:30:00 Test Item Value Reference Range Interpretation Comments RBC (test code = RBC) 2.88 4.20-5.40 [place] [address]-08-08 07:30:00 Test Item Value Reference Range Interpretation Comments Hgb (test code = Hgb) 8.6 12.0-16.0 [place] 948411-08-08 07:30:00 Test Item Value Reference Range Interpretation Comments Hct (test code = Hct) 26.6 36.0-48.0 [place] 948411-08-08 07:30:00 Test Item Value Reference Range Interpretation Comments MCV (test code = MCV) 92.2 80.0-98.0 [place] [address]-08-08 07:30:00 Test Item Value Reference Range Interpretation Comments MCH (test code = MCH) 29.8 pg 27.0-31.0 [facility]ASWJLUUYPC6568[facility] 07:30:00 Test Item Value Reference Range Interpretation Comments MCHC (test code = MCHC) 32.4 32.0-36.0 [facility] CenterAutxiybGMSDCSOOZN1098-77-23 07:30:00 Test Item Value Reference Range Interpretation Comments RDW (test code = RDW) 19.7 11.5-14.5 [facility] CenterZhqremdGFAYGUBQNP1445-87-24 07:30:00 Test Item Value Reference Range Interpretation Comments Platelet (test code = Platelet) 83 133-450 [facility] CenterYiurjlyVAIHBWRYED6296-39-97 07:30:00 Test Item Value Reference Range Interpretation Comments MPV (test code = MPV) 10.2 7.4-10.4 [facility] CenterPyplzjvJPZXNEYBFC2657-81-07 07:30:00 Test Item Value Reference Range Interpretation Comments Segs (test code = Segs) 64.0 45.0-75.0 [facility] CenterHaaufocMZDWXKBXTL3305-92-48 07:30:00 Test Item Value Reference Range Interpretation Comments Lymphocytes (test code = Lymphocytes) 24.1 20.0-40.0 [facility] CenterZnrrrnaLPNQTSWSXD9962-49-67 07:30:00 Test Item Value Reference Range Interpretation Comments Monocytes (test code = Monocytes) 7.0 2.0-12.0 [facility] CenterXpuvzdzYNPAPDXGMX6486-38-37 07:30:00 Test Item Value Reference Range Interpretation Comments Eosinophils (test code = 3.7 See_Comment [A utomated message] The Eosinophils) system which ge nerated this result tra nsmitted reference range : <=4.0. The reference r leo was not used to int erpret this result as normal/abnormal . [place] 948411-08-08 07:30:00 Test Item Value Reference Range Interpretation Comments Basophils (test code = 1.2 See_Comment [Aut omated message] The Basophils) system which ge nerated this result tra nsmitted reference range : <=1.0. The reference r leo was not used to int erpret this result as normal/abnormal . [place] 948411-08-08 07:30:00 Test Item Value Reference Range Interpretation Comments Neutrophils # (test code = Neutrophils 1.5 1.5-8.1 #) [place] 948411-08-08 07:30:00 Test Item Value Reference Range Interpretation Comments Lymphocytes # (test code = Lymphocytes 0.6 1.0-5.5 #) [place] 948411-08-08 07:30:00 Test Item Value Reference Range Interpretation Comments Monocytes # (test code 0.2 See_Comment [Aut omated message] The = Monocytes #) system which generated this result tra nsmitted reference range : <=0.8. The reference r leo was not used to int erpret this result as normal/abnormal . [place] [address]-08-08 07:30:00 Test Item Value Reference Range Interpretation Comments Eosinophils # (test code 0.1 See_Comment [A utomated message] The = Eosinophils #) system whic h generated this result tra nsmitted reference range : <=0.5. The reference r leo was not used to int erpret this result as normal/abnormal . [place] 469941-08-07 09:32:00 Test Item Value Reference Range Interpretation Comments Glucose Lvl (test code = Glucose Lvl) 59 70-99 [place] 469941-08-07 09:32:00 Test Item Value Reference Range Interpretation Comments BUN (test code = BUN) 11 7-22 [place] 469941-08-07 09:32:00 Test Item Value Reference Range Interpretation Comments Creatinine Lvl (test code = Creatinine 2.75 0.50-1.40 Lvl) [place] 469941-08-07 09:32:00 Test Item Value Reference Range Interpretation Comments Sodium Lvl (test code = Sodium Lvl) 138 135-145 [place] 469941-08-07 09:32:00 Test Item Value Reference Range Interpretation Comments Potassium Lvl (test code = Potassium 4.1 3.5-5.1 Lvl) [place] 469941-08-07 09:32:00 Test Item Value Reference Range Interpretation Comments Chloride Lvl (test code = Chloride Lvl) 104 95-109 [place] 469941-08-07 09:32:00 Test Item Value Reference Range Interpretation Comments CO2 (test code = CO2) 29 24-32 [place] 469941-08-07 09:32:00 Test Item Value Reference Range Interpretation Comments Calcium Lvl (test code = Calcium Lvl) 8.3 8.5-10.5 [place] 377[address]-08-07 09:32:00 Test Item Value Reference Range Interpretation Comments AGAP (test code = AGAP) 9.1 10.0-20.0 [place] 469941-08-07 09:32:00 Test Item Value Reference Range Interpretation Comments eGFR (test code = eGFR) 21 [place] 469941-08-07 09:32:00 Test Item Value Reference Range Interpretation Comments Magnesium Lvl (test code = Magnesium 2.2 1.8-2.4 Lvl) [place] 469941-08-07 09:32:00 Test Item Value Reference Range Interpretation Comments Phosphorus (test code = Phosphorus) 3.9 2.5-4.5 [place] 948411-08-07 09:32:00 Test Item Value Reference Range Interpretation Comments WBC (test code = WBC) 2.3 3.7-10.4 [place] 948411-08-07 09:32:00 Test Item Value Reference Range Interpretation Comments RBC (test code = RBC) 2.78 4.20-5.40 [place] 948411-08-07 09:32:00 Test Item Value Reference Range Interpretation Comments Hgb (test code = Hgb) 8.4 12.0-16.0 [place] [address]-08-07 09:32:00 Test Item Value Reference Range Interpretation Comments Hct (test code = Hct) 25.2 36.0-48.0 [place] [address]-08-07 09:32:00 Test Item Value Reference Range Interpretation Comments MCV (test code = MCV) 90.5 80.0-98.0 [place] [address]-08-07 09:32:00 Test Item Value Reference Range Interpretation Comments MCH (test code = MCH) 30.4 pg 27.0-31.0 [place] [address]-08-07 09:32:00 Test Item Value Reference Range Interpretation Comments MCHC (test code = MCHC) 33.5 32.0-36.0 [place] 948411-08-07 09:32:00 Test Item Value Reference Range Interpretation Comments RDW (test code = RDW) 19.0 11.5-14.5 [place] [address]-08-07 09:32:00 Test Item Value Reference Range Interpretation Comments Platelet (test code = Platelet) 87 133-450 [place] 948411-08-07 09:32:00 Test Item Value Reference Range Interpretation Comments MPV (test code = MPV) 10.0 7.4-10.4 [place] 469941-08-07 09:32:00 Test Item Value Reference Range Interpretation Comments Glucose Lvl (test code = Glucose Lvl) 59 70-99 [place] 469941-08-07 09:32:00 Test Item Value Reference Range Interpretation Comments BUN (test code = BUN) 11 7-22 [place] 469941-08-07 09:32:00 Test Item Value Reference Range Interpretation Comments Creatinine Lvl (test code = Creatinine 2.75 0.50-1.40 Lvl) [place] 469941-08-07 09:32:00 Test Item Value Reference Range Interpretation Comments Sodium Lvl (test code = Sodium Lvl) 138 135-145 [place] 469941-08-07 09:32:00 Test Item Value Reference Range Interpretation Comments Potassium Lvl (test code = Potassium 4.1 3.5-5.1 Lvl) [place] 469941-08-07 09:32:00 Test Item Value Reference Range Interpretation Comments Chloride Lvl (test code = Chloride Lvl) 104 95-109 [place] 469941-08-07 09:32:00 Test Item Value Reference Range Interpretation Comments CO2 (test code = CO2) 29 24-32 [place] 469941-08-07 09:32:00 Test Item Value Reference Range Interpretation Comments Calcium Lvl (test code = Calcium Lvl) 8.3 8.5-10.5 [place] 469941-08-07 09:32:00 Test Item Value Reference Range Interpretation Comments AGAP (test code = AGAP) 9.1 10.0-20.0 [place] 469941-08-07 09:32:00 Test Item Value Reference Range Interpretation Comments eGFR (test code = eGFR) 21 [place] 469941-08-07 09:32:00 Test Item Value Reference Range Interpretation Comments Magnesium Lvl (test code = Magnesium 2.2 1.8-2.4 Lvl) [facility]2021-08-07 09:32:00 Test Item Value Reference Range Interpretation Comments Phosphorus (test code = Phosphorus) 3.9 2.5-4.5 [place] 948411-08-07 09:32:00 Test Item Value Reference Range Interpretation Comments WBC (test code = WBC) 2.3 3.7-10.4 [place] 948411-08-07 09:32:00 Test Item Value Reference Range Interpretation Comments RBC (test code = RBC) 2.78 4.20-5.40 [place] 948411-08-07 09:32:00 Test Item Value Reference Range Interpretation Comments Hgb (test code = Hgb) 8.4 12.0-16.0 [place] 948411-08-07 09:32:00 Test Item Value Reference Range Interpretation Comments Hct (test code = Hct) 25.2 36.0-48.0 [place] 948411-08-07 09:32:00 Test Item Value Reference Range Interpretation Comments MCV (test code = MCV) 90.5 80.0-98.0 [place] 948411-08-07 09:32:00 Test Item Value Reference Range Interpretation Comments MCH (test code = MCH) 30.4 pg 27.0-31.0 [place] 948411-08-07 09:32:00 Test Item Value Reference Range Interpretation Comments MCHC (test code = MCHC) 33.5 32.0-36.0 [place] 948411-08-07 09:32:00 Test Item Value Reference Range Interpretation Comments RDW (test code = RDW) 19.0 11.5-14.5 [place] 948411-08-07 09:32:00 Test Item Value Reference Range Interpretation Comments Platelet (test code = Platelet) 87 133-450 [facility]MlkxpjgNKBBPCJVRC9679-86-68 09:32:00 Test Item Value Reference Range Interpretation Comments MPV (test code = MPV) 10.0 7.4-10.4 [facility]2021-08-07 09:32:00 Test Item Value Reference Range Interpretation Comments Glucose Lvl (test code = Glucose Lvl) 59 70-99 [place] 469941-08-07 09:32:00 Test Item Value Reference Range Interpretation Comments BUN (test code = BUN) 11 7-22 [place] 469941-08-07 09:32:00 Test Item Value Reference Range Interpretation Comments Creatinine Lvl (test code = Creatinine 2.75 0.50-1.40 Lvl) [place] 469941-08-07 09:32:00 Test Item Value Reference Range Interpretation Comments Sodium Lvl (test code = Sodium Lvl) 138 135-145 [place] 469941-08-07 09:32:00 Test Item Value Reference Range Interpretation Comments Potassium Lvl (test code = Potassium 4.1 3.5-5.1 Lvl) [place] 469941-08-07 09:32:00 Test Item Value Reference Range Interpretation Comments Chloride Lvl (test code = Chloride Lvl) 104 95-109 [place] 469941-08-07 09:32:00 Test Item Value Reference Range Interpretation Comments CO2 (test code = CO2) 29 24-32 [place] 469941-08-07 09:32:00 Test Item Value Reference Range Interpretation Comments Calcium Lvl (test code = Calcium Lvl) 8.3 8.5-10.5 [place] 469941-08-07 09:32:00 Test Item Value Reference Range Interpretation Comments AGAP (test code = AGAP) 9.1 10.0-20.0 [place] 469941-08-07 09:32:00 Test Item Value Reference Range Interpretation Comments eGFR (test code = eGFR) 21 [place] 469941-08-07 09:32:00 Test Item Value Reference Range Interpretation Comments Magnesium Lvl (test code = Magnesium 2.2 1.8-2.4 Lvl) [place] 469941-08-07 09:32:00 Test Item Value Reference Range Interpretation Comments Phosphorus (test code = Phosphorus) 3.9 2.5-4.5 [place] 948411-08-07 09:32:00 Test Item Value Reference Range Interpretation Comments WBC (test code = WBC) 2.3 3.7-10.4 [place] 948411-08-07 09:32:00 Test Item Value Reference Range Interpretation Comments RBC (test code = RBC) 2.78 4.20-5.40 [place] 948411-08-07 09:32:00 Test Item Value Reference Range Interpretation Comments Hgb (test code = Hgb) 8.4 12.0-16.0 [place] 948411-08-07 09:32:00 Test Item Value Reference Range Interpretation Comments Hct (test code = Hct) 25.2 36.0-48.0 [place] 948411-08-07 09:32:00 Test Item Value Reference Range Interpretation Comments MCV (test code = MCV) 90.5 80.0-98.0 [place] 948411-08-07 09:32:00 Test Item Value Reference Range Interpretation Comments MCH (test code = MCH) 30.4 pg 27.0-31.0 [place] 948411-08-07 09:32:00 Test Item Value Reference Range Interpretation Comments MCHC (test code = MCHC) 33.5 32.0-36.0 [place] 948411-08-07 09:32:00 Test Item Value Reference Range Interpretation Comments RDW (test code = RDW) 19.0 11.5-14.5 [place] 948411-08-07 09:32:00 Test Item Value Reference Range Interpretation Comments Platelet (test code = Platelet) 87 133-450 [place] 948411-08-07 09:32:00 Test Item Value Reference Range Interpretation Comments MPV (test code = MPV) 10.0 7.4-10.4 [place] 469941-08-07 09:32:00 Test Item Value Reference Range Interpretation Comments Glucose Lvl (test code = Glucose Lvl) 59 70-99 [place] 469941-08-07 09:32:00 Test Item Value Reference Range Interpretation Comments BUN (test code = BUN) 11 7-22 [place] 469941-08-07 09:32:00 Test Item Value Reference Range Interpretation Comments Creatinine Lvl (test code = Creatinine 2.75 0.50-1.40 Lvl) [place] 469941-08-07 09:32:00 Test Item Value Reference Range Interpretation Comments Sodium Lvl (test code = Sodium Lvl) 138 135-145 [place] 469941-08-07 09:32:00 Test Item Value Reference Range Interpretation Comments Potassium Lvl (test code = Potassium 4.1 3.5-5.1 Lvl) [place] 469941-08-07 09:32:00 Test Item Value Reference Range Interpretation Comments Chloride Lvl (test code = Chloride Lvl) 104 95-109 [place] 469941-08-07 09:32:00 Test Item Value Reference Range Interpretation Comments CO2 (test code = CO2) 29 24-32 [place] 469941-08-07 09:32:00 Test Item Value Reference Range Interpretation Comments Calcium Lvl (test code = Calcium Lvl) 8.3 8.5-10.5 [place] 469941-08-07 09:32:00 Test Item Value Reference Range Interpretation Comments AGAP (test code = AGAP) 9.1 10.0-20.0 [place] 469941-08-07 09:32:00 Test Item Value Reference Range Interpretation Comments eGFR (test code = eGFR) 21 [place] 469941-08-07 09:32:00 Test Item Value Reference Range Interpretation Comments Magnesium Lvl (test code = Magnesium 2.2 1.8-2.4 Lvl) [place] 469941-08-07 09:32:00 Test Item Value Reference Range Interpretation Comments Phosphorus (test code = Phosphorus) 3.9 2.5-4.5 [place] 948411-08-07 09:32:00 Test Item Value Reference Range Interpretation Comments WBC (test code = WBC) 2.3 3.7-10.4 [place] [address]-08-07 09:32:00 Test Item Value Reference Range Interpretation Comments RBC (test code = RBC) 2.78 4.20-5.40 [place] [address]-08-07 09:32:00 Test Item Value Reference Range Interpretation Comments Hgb (test code = Hgb) 8.4 12.0-16.0 [place] [address]-08-07 09:32:00 Test Item Value Reference Range Interpretation Comments Hct (test code = Hct) 25.2 36.0-48.0 [place] [address]-08-07 09:32:00 Test Item Value Reference Range Interpretation Comments MCV (test code = MCV) 90.5 80.0-98.0 [place] 948411-08-07 09:32:00 Test Item Value Reference Range Interpretation Comments MCH (test code = MCH) 30.4 pg 27.0-31.0 [place] [address]-08-07 09:32:00 Test Item Value Reference Range Interpretation Comments MCHC (test code = MCHC) 33.5 32.0-36.0 [place] 948411-08-07 09:32:00 Test Item Value Reference Range Interpretation Comments RDW (test code = RDW) 19.0 11.5-14.5 [place] [address]-08-07 09:32:00 Test Item Value Reference Range Interpretation Comments Platelet (test code = Platelet) 87 133-450 [place] 948411-08-07 09:32:00 Test Item Value Reference Range Interpretation Comments MPV (test code = MPV) 10.0 7.4-10.4 [place] 469941-08-07 09:32:00 Test Item Value Reference Range Interpretation Comments Glucose Lvl (test code = Glucose Lvl) 59 70-99 [place] 469941-08-07 09:32:00 Test Item Value Reference Range Interpretation Comments BUN (test code = BUN) 11 7-22 [place] 469941-08-07 09:32:00 Test Item Value Reference Range Interpretation Comments Creatinine Lvl (test code = Creatinine 2.75 0.50-1.40 Lvl) [place] 469941-08-07 09:32:00 Test Item Value Reference Range Interpretation Comments Sodium Lvl (test code = Sodium Lvl) 138 135-145 [place] 469941-08-07 09:32:00 Test Item Value Reference Range Interpretation Comments Potassium Lvl (test code = Potassium 4.1 3.5-5.1 Lvl) [place] 469941-08-07 09:32:00 Test Item Value Reference Range Interpretation Comments Chloride Lvl (test code = Chloride Lvl) 104 95-109 [place] 469941-08-07 09:32:00 Test Item Value Reference Range Interpretation Comments CO2 (test code = CO2) 29 24-32 [place] 469941-08-07 09:32:00 Test Item Value Reference Range Interpretation Comments Calcium Lvl (test code = Calcium Lvl) 8.3 8.5-10.5 [place] 469941-08-07 09:32:00 Test Item Value Reference Range Interpretation Comments AGAP (test code = AGAP) 9.1 10.0-20.0 [place] 377[address]-08-07 09:32:00 Test Item Value Reference Range Interpretation Comments eGFR (test code = eGFR) 21 [place] 469941-08-07 09:32:00 Test Item Value Reference Range Interpretation Comments Magnesium Lvl (test code = Magnesium 2.2 1.8-2.4 Lvl) [place] 469941-08-07 09:32:00 Test Item Value Reference Range Interpretation Comments Phosphorus (test code = Phosphorus) 3.9 2.5-4.5 [place] 948411-08-07 09:32:00 Test Item Value Reference Range Interpretation Comments WBC (test code = WBC) 2.3 3.7-10.4 [place] 948411-08-07 09:32:00 Test Item Value Reference Range Interpretation Comments RBC (test code = RBC) 2.78 4.20-5.40 [place] 948411-08-07 09:32:00 Test Item Value Reference Range Interpretation Comments Hgb (test code = Hgb) 8.4 12.0-16.0 [place] 948411-08-07 09:32:00 Test Item Value Reference Range Interpretation Comments Hct (test code = Hct) 25.2 36.0-48.0 [place] 948411-08-07 09:32:00 Test Item Value Reference Range Interpretation Comments MCV (test code = MCV) 90.5 80.0-98.0 [place] [address]-08-07 09:32:00 Test Item Value Reference Range Interpretation Comments MCH (test code = MCH) 30.4 pg 27.0-31.0 [place] [address]-08-07 09:32:00 Test Item Value Reference Range Interpretation Comments MCHC (test code = MCHC) 33.5 32.0-36.0 [place] [address]-08-07 09:32:00 Test Item Value Reference Range Interpretation Comments RDW (test code = RDW) 19.0 11.5-14.5 [facility]UpvdnwaNDXRRDTJEB0406-55-79 09:32:00 Test Item Value Reference Range Interpretation Comments Platelet (test code = Platelet) 87 133-450 [facility] CenterIpkgzmuNIYVEZGVSG6386-82-63 09:32:00 Test Item Value Reference Range Interpretation Comments MPV (test code = MPV) 10.0 7.4-10.4 [facility] [id number] 05:33:00 Test Item Value Reference Range Interpretation Comments ABO/Rh (test code = ABO/Rh) B POS [facility] [id number] 05:33:00 Test Item Value Reference Range Interpretation Comments Antibody Scrn (test Negative (01/24/21 12:33 code = Antibody Scrn) AM) [facility] CenterUbwzkawRFSTHNUSXN3818-82-05 05:33:00 Test Item Value Reference Range Interpretation Comments Segs (test code = Segs) 60.2 45.0-75.0 [facility] CenterHcmhzvmWYZYUWNVLZ9758-16-48 05:33:00 Test Item Value Reference Range Interpretation Comments Lymphocytes (test code = Lymphocytes) 28.6 20.0-40.0 [facility] CenterUgzseweEMPLHBXUET5690-74-19 05:33:00 Test Item Value Reference Range Interpretation Comments Monocytes (test code = Monocytes) 5.8 2.0-12.0 [facility] CenterUrbfjtaPNYOWQWGHN4695-28-43 05:33:00 Test Item Value Reference Range Interpretation Comments Eosinophils (test code = 4.2 See_Comment [A utomated message] The Eosinophils) system which ge nerated this result tra nsmitted reference range : <=4.0. The reference r leo was not used to int erpret this result as normal/abnormal . [facility] CenterVvnidryXTQVOMGAMV1348-20-72 05:33:00 Test Item Value Reference Range Interpretation Comments Basophils (test code = 1.2 See_Comment [Aut omated message] The Basophils) system which ge nerated this result tra nsmitted reference range : <=1.0. The reference r leo was not used to int erpret this result as normal/abnormal . [facility] CenterJfkyhujPSJSCWELIW7722-62-84 05:33:00 Test Item Value Reference Range Interpretation Comments Neutrophils # (test code = Neutrophils 2.2 1.5-8.1 #) [facility] CenterTyyhpmhMRSPUTRCRS7421-31-72 05:33:00 Test Item Value Reference Range Interpretation Comments Lymphocytes # (test code = Lymphocytes 1.1 1.0-5.5 #) [facility] CenterQsnhwrnVDYGJOBRXS7196-08-69 05:33:00 Test Item Value Reference Range Interpretation Comments Monocytes # (test code 0.2 See_Comment [Aut omated message] The = Monocytes #) system which generated this result tra nsmitted reference range : <=0.8. The reference r leo was not used to int erpret this result as normal/abnormal . [facility] CenterHxcxmnpHDJPEPQDYC8284-16-41 05:33:00 Test Item Value Reference Range Interpretation Comments Eosinophils # (test code 0.2 See_Comment [A utomated message] The = Eosinophils #) system whic h generated this result tra nsmitted reference range : <=0.5. The reference r leo was not used to int erpret this result as normal/abnormal . [facility]2021-08-06 05:33:00 Test Item Value Reference Range Interpretation Comments ABO/Rh (test code = ABO/Rh) B POS [facility]2021-08-06 05:33:00 Test Item Value Reference Range Interpretation Comments Antibody Scrn (test Negative (01/24/21 12:33 code = Antibody Scrn) AM) [facility] CenterDqunhmuNGPPMLCZCQ8013-26-32 05:33:00 Test Item Value Reference Range Interpretation Comments Segs (test code = Segs) 60.2 45.0-75.0 [facility] CenterIykrutwAGDUMRAAGV8874-25-14 05:33:00 Test Item Value Reference Range Interpretation Comments Lymphocytes (test code = Lymphocytes) 28.6 20.0-40.0 [facility] CenterAztecyqBHZIUSNRHI4119-39-02 05:33:00 Test Item Value Reference Range Interpretation Comments Monocytes (test code = Monocytes) 5.8 2.0-12.0 [facility] CenterErcmxpfIATBWDHDZS6312-29-07 05:33:00 Test Item Value Reference Range Interpretation Comments Eosinophils (test code = 4.2 See_Comment [A utomated message] The Eosinophils) system which ge nerated this result tra nsmitted reference range : <=4.0. The reference r leo was not used to int erpret this result as normal/abnormal . [facility] CenterQmerhndBDEKLJKXYQ5940-07-36 05:33:00 Test Item Value Reference Range Interpretation Comments Basophils (test code = 1.2 See_Comment [Aut omated message] The Basophils) system which ge nerated this result tra nsmitted reference range : <=1.0. The reference r leo was not used to int erpret this result as normal/abnormal . [facility] CenterFzxdpaxWHRHUVPCCA0533-50-70 05:33:00 Test Item Value Reference Range Interpretation Comments Neutrophils # (test code = Neutrophils 2.2 1.5-8.1 #) [facility] CenterHwaivxuQCLGFMVEQS3776-89-97 05:33:00 Test Item Value Reference Range Interpretation Comments Lymphocytes # (test code = Lymphocytes 1.1 1.0-5.5 #) [facility] CenterSocnkbqZJULDPMZWG8557-09-74 05:33:00 Test Item Value Reference Range Interpretation Comments Monocytes # (test code 0.2 See_Comment [Aut omated message] The = Monocytes #) system which generated this result tra nsmitted reference range : <=0.8. The reference r leo was not used to int erpret this result as normal/abnormal . [facility] CenterPmqqjflFSGZJBVJHA5505-97-63 05:33:00 Test Item Value Reference Range Interpretation Comments Eosinophils # (test code 0.2 See_Comment [A utomated message] The = Eosinophils #) system whic h generated this result tra nsmitted reference range : <=0.5. The reference r leo was not used to int erpret this result as normal/abnormal . [facility] HQUPXIP5159-72-51 05:33:00 Test Item Value Reference Range Interpretation Comments ABO/Rh (test code = ABO/Rh) B POS [facility] CenterZhui Xin [facility] [id number] 05:33:00 Test Item Value Reference Range Interpretation Comments Antibody Scrn (test Negative (01/24/21 12:33 code = Antibody Scrn) AM) [facility] CenterJivncqpZBLBMECMPZ0364-16-04 05:33:00 Test Item Value Reference Range Interpretation Comments Segs (test code = Segs) 60.2 45.0-75.0 [facility] CenterXfkukheAINMZSKKHU8451-85-43 05:33:00 Test Item Value Reference Range Interpretation Comments Lymphocytes (test code = Lymphocytes) 28.6 20.0-40.0 [facility] CenterKrriwmpGMFMOEIELS3833-22-38 05:33:00 Test Item Value Reference Range Interpretation Comments Monocytes (test code = Monocytes) 5.8 2.0-12.0 [facility] CenterWsraxciMOJLGMPNQP1252-66-64 05:33:00 Test Item Value Reference Range Interpretation Comments Eosinophils (test code = 4.2 See_Comment [A utomated message] The Eosinophils) system which ge nerated this result tra nsmitted reference range : <=4.0. The reference r leo was not used to int erpret this result as normal/abnormal . [facility] CenterHsqkhyoVYLBDJGCGI5431-46-38 05:33:00 Test Item Value Reference Range Interpretation Comments Basophils (test code = 1.2 See_Comment [Aut omated message] The Basophils) system which ge nerated this result tra nsmitted reference range : <=1.0. The reference r leo was not used to int erpret this result as normal/abnormal . [facility] CenterLjlkalqARLLWMFMLQ3346-72-11 05:33:00 Test Item Value Reference Range Interpretation Comments Neutrophils # (test code = Neutrophils 2.2 1.5-8.1 #) [facility] CenterGmurmznBBAQEUOBEP4363-07-29 05:33:00 Test Item Value Reference Range Interpretation Comments Lymphocytes # (test code = Lymphocytes 1.1 1.0-5.5 #) [facility] CenterHdqixmsRZCFUZYZND2740-75-39 05:33:00 Test Item Value Reference Range Interpretation Comments Monocytes # (test code 0.2 See_Comment [Aut omated message] The = Monocytes #) system which generated this result tra nsmitted reference range : <=0.8. The reference r leo was not used to int erpret this result as normal/abnormal . [facility] CenterRfkzqezLWOPUEOMMI1623-24-42 05:33:00 Test Item Value Reference Range Interpretation Comments Eosinophils # (test code 0.2 See_Comment [A utomated message] The = Eosinophils #) system whic h generated this result tra nsmitted reference range : <=0.5. The reference r leo was not used to int erpret this result as normal/abnormal . [facility] CenterQuantiaMD FSSEOZE3493-67-43 05:33:00 Test Item Value Reference Range Interpretation Comments ABO/Rh (test code = ABO/Rh) B POS [facility] VVNIBFY9743-64-12 05:33:00 Test Item Value Reference Range Interpretation Comments Antibody Scrn (test Negative (01/24/21 12:33 code = Antibody Scrn) AM) [facility] CenterDpfzbnoEPWGLHPHMP0781-59-01 05:33:00 Test Item Value Reference Range Interpretation Comments Segs (test code = Segs) 60.2 45.0-75.0 [facility] CenterBwqmlczCVFHDZDMNC9331-07-45 05:33:00 Test Item Value Reference Range Interpretation Comments Lymphocytes (test code = Lymphocytes) 28.6 20.0-40.0 [facility] CenterLnbmwxmXJLOAZJXCE2482-45-83 05:33:00 Test Item Value Reference Range Interpretation Comments Monocytes (test code = Monocytes) 5.8 2.0-12.0 [facility] CenterXwonmuiGQHCCLHBMF2272-45-37 05:33:00 Test Item Value Reference Range Interpretation Comments Eosinophils (test code = 4.2 See_Comment [A utomated message] The Eosinophils) system which ge nerated this result tra nsmitted reference range : <=4.0. The reference r leo was not used to int erpret this result as normal/abnormal . [facility] CenterZdojeyoNWYNDHNOZH7643-94-56 05:33:00 Test Item Value Reference Range Interpretation Comments Basophils (test code = 1.2 See_Comment [Aut omated message] The Basophils) system which ge nerated this result tra nsmitted reference range : <=1.0. The reference r leo was not used to int erpret this result as normal/abnormal . [facility] CenterUikiomfPVTSZWDUIU8382-82-04 05:33:00 Test Item Value Reference Range Interpretation Comments Neutrophils # (test code = Neutrophils 2.2 1.5-8.1 #) [facility] CenterLihdntdSFNBOARANY3858-52-45 05:33:00 Test Item Value Reference Range Interpretation Comments Lymphocytes # (test code = Lymphocytes 1.1 1.0-5.5 #) [facility] CenterGsdbpcsJIAOYSFNDY8786-33-80 05:33:00 Test Item Value Reference Range Interpretation Comments Monocytes # (test code 0.2 See_Comment [Aut omated message] The = Monocytes #) system which generated this result tra nsmitted reference range : <=0.8. The reference r leo was not used to int erpret this result as normal/abnormal . [facility] CenterLqnavmjEQMMPACHDG5315-10-86 05:33:00 Test Item Value Reference Range Interpretation Comments Eosinophils # (test code 0.2 See_Comment [A utomated message] The = Eosinophils #) system whic h generated this result tra nsmitted reference range : <=0.5. The reference r leo was not used to int erpret this result as normal/abnormal . [facility]2021-08-06 05:33:00 Test Item Value Reference Range Interpretation Comments ABO/Rh (test code = ABO/Rh) B POS [facility] YWCLWPU5755-79-20 05:33:00 Test Item Value Reference Range Interpretation Comments Antibody Scrn (test Negative (01/24/21 12:33 code = Antibody Scrn) AM) [facility] CenterFjpfyhzELCARXFSBH9425-14-11 05:33:00 Test Item Value Reference Range Interpretation Comments Segs (test code = Segs) 60.2 45.0-75.0 [facility] CenterRwhuwgrAGLHWDXWNG2295-48-35 05:33:00 Test Item Value Reference Range Interpretation Comments Lymphocytes (test code = Lymphocytes) 28.6 20.0-40.0 [facility] CenterTgoqjknBHIQPWFIMJ2027-97-11 05:33:00 Test Item Value Reference Range Interpretation Comments Monocytes (test code = Monocytes) 5.8 2.0-12.0 [facility] CenterOomekvhQOJRAGPKJT6069-23-31 05:33:00 Test Item Value Reference Range Interpretation Comments Eosinophils (test code = 4.2 See_Comment [A utomated message] The Eosinophils) system which ge nerated this result tra nsmitted reference range : <=4.0. The reference r leo was not used to int erpret this result as normal/abnormal . [facility] CenterDklmmpdRTOAEBCHOI9589-95-26 05:33:00 Test Item Value Reference Range Interpretation Comments Basophils (test code = 1.2 See_Comment [Aut omated message] The Basophils) system which ge nerated this result tra nsmitted reference range : <=1.0. The reference r leo was not used to int erpret this result as normal/abnormal . [facility] CenterGcrctaqNGVEKWXOGL9618-20-34 05:33:00 Test Item Value Reference Range Interpretation Comments Neutrophils # (test code = Neutrophils 2.2 1.5-8.1 #) [facility] CenterErtesslBMEUCXMSPK2652-42-55 05:33:00 Test Item Value Reference Range Interpretation Comments Lymphocytes # (test code = Lymphocytes 1.1 1.0-5.5 #) [facility] CenterGusfxrkEJVNEIBABK0885-66-95 05:33:00 Test Item Value Reference Range Interpretation Comments Monocytes # (test code 0.2 See_Comment [Aut omated message] The = Monocytes #) system which generated this result tra nsmitted reference range : <=0.8. The reference r leo was not used to int erpret this result as normal/abnormal . [place] 948411-08-06 05:33:00 Test Item Value Reference Range Interpretation Comments Eosinophils # (test code 0.2 See_Comment [A utomated message] The = Eosinophils #) system whic h generated this result tra nsmitted reference range : <=0.5. The reference r leo was not used to int erpret this result as normal/abnormal . [place] 948411-08-05 05:53:00 Test Item Value Reference Range Interpretation Comments PT (test code = PT) 14.4 s 12.0-14.7 [place] 948411-08-05 05:53:00 Test Item Value Reference Range Interpretation Comments INR (test code = INR) 1.13 1 0.85-1.17 [place] 948411-08-05 05:53:00 Test Item Value Reference Range Interpretation Comments Fibrinogen Lvl (test code = Fibrinogen 319 230-510 Lvl) [place] 948411-08-05 05:53:00 Test Item Value Reference Range Interpretation Comments Thrombin Time (test code = Thrombin 15.9 s 15.0-21.2 Time) [place] 948411-08-05 05:53:00 Test Item Value Reference Range Interpretation Comments PTT (test code = PTT) 47.0 s 22.9-35.8 [place] [address]-08-05 05:53:00 Test Item Value Reference Range Interpretation Comments D-Dimer (test code = D-Dimer) 0.91 [place] [address]-08-05 05:53:00 Test Item Value Reference Range Interpretation Comments Basophils # (test code 0.1 See_Comment [Aut omated message] The = Basophils #) system which generated this result tra nsmitted reference range : <=0.2. The reference r leo was not used to int erpret this result as normal/abnormal . [facility]2021-08-05 05:53:00 Test Item Value Reference Range Interpretation Comments Ca Ion WB (test code = Ca Ion WB) 1.24 1.05-1.25 [facility]2021-08-05 05:53:00 Test Item Value Reference Range Interpretation Comments Ca Norm WB (test code = Ca Norm WB) 1.25 1.05-1.25 [place] 948411-08-05 05:53:00 Test Item Value Reference Range Interpretation Comments PT (test code = PT) 14.4 s 12.0-14.7 [facility] CenterTdzjdapDDYIJCKYKJ5379-78-08 05:53:00 Test Item Value Reference Range Interpretation Comments INR (test code = INR) 1.13 1 0.85-1.17 [facility] CenterFqlmaymDTGRYAAVOD6257-50-97 05:53:00 Test Item Value Reference Range Interpretation Comments Fibrinogen Lvl (test code = Fibrinogen 319 230-510 Lvl) [facility] CenterNlspqoaRHQTCLLRLJ4996-80-70 05:53:00 Test Item Value Reference Range Interpretation Comments Thrombin Time (test code = Thrombin 15.9 s 15.0-21.2 Time) [facility] CenterNluqbgbYQSWMCFWPQ5956-89-93 05:53:00 Test Item Value Reference Range Interpretation Comments PTT (test code = PTT) 47.0 s 22.9-35.8 [place] 948411-08-05 05:53:00 Test Item Value Reference Range Interpretation Comments D-Dimer (test code = D-Dimer) 0.91 [place] 948411-08-05 05:53:00 Test Item Value Reference Range Interpretation Comments Basophils # (test code 0.1 See_Comment [Aut omated message] The = Basophils #) system which generated this result tra nsmitted reference range : <=0.2. The reference r leo was not used to int erpret this result as normal/abnormal . [facility]2021-08-05 05:53:00 Test Item Value Reference Range Interpretation Comments Ca Ion WB (test code = Ca Ion WB) 1.24 1.05-1.25 [facility]2021-08-05 05:53:00 Test Item Value Reference Range Interpretation Comments Ca Norm WB (test code = Ca Norm WB) 1.25 1.05-1.25 [facility]HznvztrYRNYHVQXQE2159-95-57 05:53:00 Test Item Value Reference Range Interpretation Comments PT (test code = PT) 14.4 s 12.0-14.7 [facility] HospitalXorhneaXGKNJVCDSH0278-44-45 05:53:00 Test Item Value Reference Range Interpretation Comments INR (test code = INR) 1.13 1 0.85-1.17 [facility] CenterKveroeqFNDHTOQUWT0445-94-02 05:53:00 Test Item Value Reference Range Interpretation Comments Fibrinogen Lvl (test code = Fibrinogen 319 230-510 Lvl) [facility] CenterYtyipidZBKOVJQGGO0647-38-45 05:53:00 Test Item Value Reference Range Interpretation Comments Thrombin Time (test code = Thrombin 15.9 s 15.0-21.2 Time) [facility] CenterZiisnmgHVLKPJLLVL7495-04-88 05:53:00 Test Item Value Reference Range Interpretation Comments PTT (test code = PTT) 47.0 s 22.9-35.8 [facility] CenterRpgvopkPJSRXIPWEP8061-42-51 05:53:00 Test Item Value Reference Range Interpretation Comments D-Dimer (test code = D-Dimer) 0.91 [facility] CenterAtosobbDCKYPSKTNF1603-97-24 05:53:00 Test Item Value Reference Range Interpretation Comments Basophils # (test code 0.1 See_Comment [Aut omated message] The = Basophils #) system which generated this result tra nsmitted reference range : <=0.2. The reference r leo was not used to int erpret this result as normal/abnormal . [facility] CenterPARATHYROID NCVMTWJ6860-04-67 05:53:00 Test Item Value Reference Range Interpretation Comments Ca Ion WB (test code = Ca Ion WB) 1.24 1.05-1.25 [facility] CenterPARATHYROID DZKVSMX0743-58-59 05:53:00 Test Item Value Reference Range Interpretation Comments Ca Norm WB (test code = Ca Norm WB) 1.25 1.05-1.25 [facility] HospitalXrvnwbhZNTEPXKXEO4293-34-60 05:53:00 Test Item Value Reference Range Interpretation Comments PT (test code = PT) 14.4 s 12.0-14.7 [facility] CenterDxgoxzpVKZBNEFFQN4143-38-15 05:53:00 Test Item Value Reference Range Interpretation Comments INR (test code = INR) 1.13 1 0.85-1.17 [facility] CenterKwbasrsTBSARVFQJA7872-34-25 05:53:00 Test Item Value Reference Range Interpretation Comments Fibrinogen Lvl (test code = Fibrinogen 319 230-510 Lvl) [facility] CenterRiouvgzIJXZABDTHD2462-44-08 05:53:00 Test Item Value Reference Range Interpretation Comments Thrombin Time (test code = Thrombin 15.9 s 15.0-21.2 Time) [facility] CenterHbhrfbzIWOPIIPFGB1317-26-29 05:53:00 Test Item Value Reference Range Interpretation Comments PTT (test code = PTT) 47.0 s 22.9-35.8 [facility] CenterGnwlstzKOSANTAPCZ4112-19-51 05:53:00 Test Item Value Reference Range Interpretation Comments D-Dimer (test code = D-Dimer) 0.91 [facility] CenterJwmcwbrBHASHSBXKY3869-18-50 05:53:00 Test Item Value Reference Range Interpretation Comments Basophils # (test code 0.1 See_Comment [Aut omated message] The = Basophils #) system which generated this result tra nsmitted reference range : <=0.2. The reference r leo was not used to int erpret this result as normal/abnormal . [facility] OQOJZQJ5608-44-97 05:53:00 Test Item Value Reference Range Interpretation Comments Ca Ion WB (test code = Ca Ion WB) 1.24 1.05-1.25 [facility]ATH[facility] AKTHXQJ6310-75-74 05:53:00 Test Item Value Reference Range Interpretation Comments Ca Norm WB (test code = Ca Norm WB) 1.25 1.05-1.25 [facility] CenterLqxctglEFSASVFPZY2283-55-04 05:53:00 Test Item Value Reference Range Interpretation Comments PT (test code = PT) 14.4 s 12.0-14.7 [facility] CenterWwveasiWCNMFOPYUV5839-18-28 05:53:00 Test Item Value Reference Range Interpretation Comments INR (test code = INR) 1.13 1 0.85-1.17 [place] 948411-08-05 05:53:00 Test Item Value Reference Range Interpretation Comments Fibrinogen Lvl (test code = Fibrinogen 319 230-510 Lvl) [facility] CenterIdyemivEGQWMHYZEK3206-24-91 05:53:00 Test Item Value Reference Range Interpretation Comments Thrombin Time (test code = Thrombin 15.9 s 15.0-21.2 Time) [address]08-05 05:53:00 Test Item Value Reference Range Interpretation Comments PTT (test code = PTT) 47.0 s 22.9-35.[address]08-05 05:53:00 Test Item Value Reference Range Interpretation Comments D-Dimer (test code = D-Dimer) 0.[address]08-05 05:53:00 Test Item Value Reference Range Interpretation Comments Basophils # (test code 0.1 See_Comment [Aut omated message] The = Basophils #) system which generated this result tra nsmitted reference range : <=0.2. The reference r leo was not used to int erpret this result as normal/abnormal . [place] 558821-08-05 05:53:00 Test Item Value Reference Range Interpretation Comments Ca Ion WB (test code = Ca Ion WB) 1.24 1.05-1.25 [place] 558821-08-05 05:53:00 Test Item Value Reference Range Interpretation Comments Ca Norm WB (test code = Ca Norm WB) 1.25 1.05-1.25 [facility] CenterTechnim[facility] [id number] 10:09:00 Test Item Value Reference Range Interpretation Comments ALT (test code = ALT) 49 See_Comment [Auto mated message] The system which ge nerated this result transmit rohit reference range : <=65. The reference range was not used to interpr et this result as reji l/abnormal. [facility] CenterTechnimotion RLGEV0707-19-58 10:09:00 Test Item Value Reference Range Interpretation Comments Albumin Lvl (test code = Albumin Lvl) 2.8 3.5-5.0 [facility] CenterTechnim[facility] VNRDG8020-04-83 10:09:00 Test Item Value Reference Range Interpretation Comments Alk Phos (test code = Alk Phos) 41 39-136 [facility] CenterTechnimotion [id number] 10:09:00 Test Item Value Reference Range Interpretation Comments Bili Direct (test code 0.2 See_Comment [Aut omated message] The = Bili Direct) system which generated this result tra nsmitted reference range : <=0.3. The reference r leo was not used to int erpret this result as reji l/abnormal. [facility] [employer] [id number] 10:09:00 Test Item Value Reference Range Interpretation Comments Bili Total (test code = Bili Total) 0.6 0.2-1.3 [facility] CenterTechnim[facility] [id number] 10:09:00 Test Item Value Reference Range Interpretation Comments Bili Indirect (test 0.4 See_Comment [Automa rohit message] The code = Bili Indirect) system which generated this result tra nsmitted reference range : <=1.0. The reference r leo was not used to int erpret this result as normal/abnormal . [facility] [employer] [id number] 10:09:00 Test Item Value Reference Range Interpretation Comments Total Protein (test code = Total 5.6 6.4-8.4 Protein) [facility] CenterTechnim[facility] [id number] 10:09:00 Test Item Value Reference Range Interpretation Comments AST (test code = AST) 33 See_Comment [Auto mated message] The system which ge nerated this result transmit rohit reference range : <=37. The reference range was not used to interpr et this result as reji l/abnormal. [facility] [employer] [id number] 10:09:00 Test Item Value Reference Range Interpretation Comments Globulin (test code = Globulin) 2.8 2.7-4.2 [facility] [employer] [id number] 10:09:00 Test Item Value Reference Range Interpretation Comments A/G Ratio (test code = A/G Ratio) 1.0 1 0.7-1.6 [facility] [employer] [id number] 10:09:00 Test Item Value Reference Range Interpretation Comments Amylase Lvl (test code = Amylase Lvl) 19 25-115 [facility] [employer] [id number] 10:09:00 Test Item Value Reference Range Interpretation Comments Lipase Lvl (test code = Lipase Lvl) no gt 73-393 [facility] CenterValtnupKMTSAQFUYU8956-94-15 10:09:00 Test Item Value Reference Range Interpretation Comments PTT (test code = PTT) 41.4 s 22.9-35.8 [facility] CenterDfxgfmyRLTQREKYSR0212-53-15 10:09:00 Test Item Value Reference Range Interpretation Comments PT (test code = PT) 15.4 s 12.0-14.7 [place] 948411-08-04 10:09:00 Test Item Value Reference Range Interpretation Comments INR (test code = INR) 1.24 1 0.85-1.17 [place] 948411-08-04 10:09:00 Test Item Value Reference Range Interpretation Comments Fibrinogen Lvl (test code = Fibrinogen 312 230-510 Lvl) [place] 948411-08-04 10:09:00 Test Item Value Reference Range Interpretation Comments Thrombin Time (test code = Thrombin 16.6 s 15.0-21.2 Time) [facility] CenterZmtnapxWTVVLQRUFZ7941-05-66 10:09:00 Test Item Value Reference Range Interpretation Comments D-Dimer (test code = D-Dimer) 4.91 [place] [address]-08-04 10:09:00 Test Item Value Reference Range Interpretation Comments Basophils # (test code 0.1 See_Comment [Aut omated message] The = Basophils #) system which generated this result tra nsmitted reference range : <=0.2. The reference r leo was not used to int erpret this result as normal/abnormal . [facility] [id number] 10:09:00 Test Item Value Reference Range Interpretation Comments Hgb A1C (test code = Hgb A1C) 5.6 [facility] CenterSnappyTV [id number] 10:09:00 Test Item Value Reference Range Interpretation Comments ALT (test code = ALT) 49 See_Comment [Auto mated message] The system which ge nerated this result transmit rohit reference range : <=65. The reference range was not used to interpr et this result as reji l/abnormal. [facility] CenterSnappyTV [id number] 10:09:00 Test Item Value Reference Range Interpretation Comments Albumin Lvl (test code = Albumin Lvl) 2.8 3.5-5.0 [facility] CenterSnappyTV [id number] 10:09:00 Test Item Value Reference Range Interpretation Comments Alk Phos (test code = Alk Phos) 41 39-136 [facility]2021-08-04 10:09:00 Test Item Value Reference Range Interpretation Comments Bili Direct (test code 0.2 See_Comment [Aut omated message] The = Bili Direct) system which generated this result tra nsmitted reference range : <=0.3. The reference r leo was not used to int erpret this result as reji l/abnormal. [facility] CenterTechnimotion [id number] 10:09:00 Test Item Value Reference Range Interpretation Comments Bili Total (test code = Bili Total) 0.6 0.2-1.3 [facility] CenterTechnim[facility] [id number] 10:09:00 Test Item Value Reference Range Interpretation Comments Bili Indirect (test 0.4 See_Comment [Automa rohit message] The code = Bili Indirect) system which generated this result tra nsmitted reference range : <=1.0. The reference r leo was not used to int erpret this result as normal/abnormal . [facility] CenterTechnim[facility] [id number] 10:09:00 Test Item Value Reference Range Interpretation Comments Total Protein (test code = Total 5.6 6.4-8.4 Protein) [facility] CenterTechn[facility] [id number] 10:09:00 Test Item Value Reference Range Interpretation Comments AST (test code = AST) 33 See_Comment [Auto mated message] The system which ge nerated this result transmit rohit reference range : <=37. The reference range was not used to interpr et this result as reji l/abnormal. [facility] CenterTechn[facility] [id number] 10:09:00 Test Item Value Reference Range Interpretation Comments Globulin (test code = Globulin) 2.8 2.7-4.2 [facility] CenterTechn[facility] [id number] 10:09:00 Test Item Value Reference Range Interpretation Comments A/G Ratio (test code = A/G Ratio) 1.0 1 0.7-1.6 [facility] CenterTechn[facility] [id number] 10:09:00 Test Item Value Reference Range Interpretation Comments Amylase Lvl (test code = Amylase Lvl) 19 25-115 [facility] CenterTechn[facility] [id number] 10:09:00 Test Item Value Reference Range Interpretation Comments Lipase Lvl (test code = Lipase Lvl) no gt 73-393 [facility] CenterGuvvrluSZQFRDMCDP5389-20-71 10:09:00 Test Item Value Reference Range Interpretation Comments PTT (test code = PTT) 41.4 s 22.9-35.8 [facility] CenterRjfoggoGIITTJEYNP8100-44-69 10:09:00 Test Item Value Reference Range Interpretation Comments PT (test code = PT) 15.4 s 12.0-14.7 [facility] CenterYkecubhQGCOPQMLNN0875-62-58 10:09:00 Test Item Value Reference Range Interpretation Comments INR (test code = INR) 1.24 1 0.85-1.17 [facility]NIRE[facility]ZAVS3134-72-89 10:09:00 Test Item Value Reference Range Interpretation Comments Fibrinogen Lvl (test code = Fibrinogen 312 230-510 Lvl) [facility] HospitalXfwfhqrMYVDQVWCRX1055-48-74 10:09:00 Test Item Value Reference Range Interpretation Comments Thrombin Time (test code = Thrombin 16.6 s 15.0-21.2 Time) [facility]IambuqfXLFFIDWMBD9880-09-95 10:09:00 Test Item Value Reference Range Interpretation Comments D-Dimer (test code = D-Dimer) 4.91 [facility] CenterSfxsydzXXRZREQFSO3398-78-33 10:09:00 Test Item Value Reference Range Interpretation Comments Basophils # (test code 0.1 See_Comment [Aut omated message] The = Basophils #) system which generated this result tra nsmitted reference range : <=0.2. The reference r leo was not used to int erpret this result as normal/abnormal . [facility] [id number] 10:09:00 Test Item Value Reference Range Interpretation Comments Hgb A1C (test code = Hgb A1C) 5.6 [facility]Sn[facility] [id number] 10:09:00 Test Item Value Reference Range Interpretation Comments ALT (test code = ALT) 49 See_Comment [Auto mated message] The system which ge nerated this result transmit rohit reference range : <=65. The reference range was not used to interpr et this result as reji l/abnormal. [facility] [employer] [id number] 10:09:00 Test Item Value Reference Range Interpretation Comments Albumin Lvl (test code = Albumin Lvl) 2.8 3.5-5.0 [facility] [employer] [id number] 10:09:00 Test Item Value Reference Range Interpretation Comments Alk Phos (test code = Alk Phos) 41 39-136 [facility] [id number] 10:09:00 Test Item Value Reference Range Interpretation Comments Bili Direct (test code 0.2 See_Comment [Aut omated message] The = Bili Direct) system which generated this result tra nsmitted reference range : <=0.3. The reference r leo was not used to int erpret this result as reji l/abnormal. [facility] Center[facility] [id number] 10:09:00 Test Item Value Reference Range Interpretation Comments Bili Total (test code = Bili Total) 0.6 0.2-1.3 [facility] CenterSnappyTV [id number] 10:09:00 Test Item Value Reference Range Interpretation Comments Bili Indirect (test 0.4 See_Comment [Automa rohit message] The code = Bili Indirect) system which generated this result tra nsmitted reference range : <=1.0. The reference r leo was not used to int erpret this result as normal/abnormal . [facility] [id number] 10:09:00 Test Item Value Reference Range Interpretation Comments Total Protein (test code = Total 5.6 6.4-8.4 Protein) [facility] [id number] 10:09:00 Test Item Value Reference Range Interpretation Comments AST (test code = AST) 33 See_Comment [Auto mated message] The system which ge nerated this result transmit rohit reference range : <=37. The reference range was not used to interpr et this result as reji l/abnormal. [facility] [id number] 10:09:00 Test Item Value Reference Range Interpretation Comments Globulin (test code = Globulin) 2.8 2.7-4.2 [facility]Techn[facility] [id number] 10:09:00 Test Item Value Reference Range Interpretation Comments A/G Ratio (test code = A/G Ratio) 1.0 1 0.7-1.6 [facility]Sn[facility] [id number] 10:09:00 Test Item Value Reference Range Interpretation Comments Amylase Lvl (test code = Amylase Lvl) 19 25-115 [facility] CenterTechn[facility] [id number] 10:09:00 Test Item Value Reference Range Interpretation Comments Lipase Lvl (test code = [place] [address] [facility] CenterPunwkgrBWWQSBXBLS0161-38-87 10:09:00 Test Item Value Reference Range Interpretation Comments PTT (test code = PTT) 41.4 s 22.9-35.8 [facility] CenterYdcdocjILHCJHYBZZ0812-92-60 10:09:00 Test Item Value Reference Range Interpretation Comments PT (test code = PT) 15.4 s 12.0-14.7 [facility] HospitalHbnzjkbSLAOAKMERV1166-55-57 10:09:00 Test Item Value Reference Range Interpretation Comments INR (test code = INR) 1.24 1 0.85-1.17 [facility] HospitalQjytlqmPQXLYSSALS4000-78-10 10:09:00 Test Item Value Reference Range Interpretation Comments Fibrinogen Lvl (test code = Fibrinogen 312 230-510 Lvl) [facility] HospitalIxfywrvOMJBIBPJZS6396-77-26 10:09:00 Test Item Value Reference Range Interpretation Comments Thrombin Time (test code = Thrombin 16.6 s 15.0-21.2 Time) [facility] CenterFbruebdQRKVUMJBJJ6349-49-98 10:09:00 Test Item Value Reference Range Interpretation Comments D-Dimer (test code = D-Dimer) 4.91 [facility] CenterGrewdybCXEXHKSRPO3553-23-99 10:09:00 Test Item Value Reference Range Interpretation Comments Basophils # (test code 0.1 See_Comment [Aut omated message] The = Basophils #) system which generated this result tra nsmitted reference range : <=0.2. The reference r leo was not used to int erpret this result as normal/abnormal . [facility] [id number] 10:09:00 Test Item Value Reference Range Interpretation Comments Hgb A1C (test code = Hgb A1C) 5.6 [facility] CenterTechn[facility] [id number] 10:09:00 Test Item Value Reference Range Interpretation Comments ALT (test code = ALT) 49 See_Comment [Auto mated message] The system which ge nerated this result transmit rohit reference range : <=65. The reference range was not used to interpr et this result as reji l/abnormal. [facility] [employer] [id number] 10:09:00 Test Item Value Reference Range Interpretation Comments Albumin Lvl (test code = Albumin Lvl) 2.8 3.5-5.0 [facility] [employer] [id number] 10:09:00 Test Item Value Reference Range Interpretation Comments Alk Phos (test code = Alk Phos) 41 39-136 [facility] CenterTechn[facility] [id number] 10:09:00 Test Item Value Reference Range Interpretation Comments Bili Direct (test code 0.2 See_Comment [Aut omated message] The = Bili Direct) system which generated this result tra nsmitted reference range : <=0.3. The reference r leo was not used to int erpret this result as reji l/abnormal. [facility] CenterTechn[facility] [id number] 10:09:00 Test Item Value Reference Range Interpretation Comments Bili Total (test code = Bili Total) 0.6 0.2-1.3 [facility]Sn[facility] [id number] 10:09:00 Test Item Value Reference Range Interpretation Comments Bili Indirect (test 0.4 See_Comment [Automa rohit message] The code = Bili Indirect) system which generated this result tra nsmitted reference range : <=1.0. The reference r leo was not used to int erpret this result as normal/abnormal . [facility] CenterTechn[facility] [id number] 10:09:00 Test Item Value Reference Range Interpretation Comments Total Protein (test code = Total 5.6 6.4-8.4 Protein) [facility]Sn[facility] [id number] 10:09:00 Test Item Value Reference Range Interpretation Comments AST (test code = AST) 33 See_Comment [Auto mated message] The system which ge nerated this result transmit rohit reference range : <=37. The reference range was not used to interpr et this result as reji l/abnormal. [facility] CenterTechn[facility] [id number] 10:09:00 Test Item Value Reference Range Interpretation Comments Globulin (test code = Globulin) 2.8 2.7-4.2 [facility]Techn[facility] [id number] 10:09:00 Test Item Value Reference Range Interpretation Comments A/G Ratio (test code = A/G Ratio) 1.0 1 0.7-1.6 [facility] CenterTechn[facility] [id number] 10:09:00 Test Item Value Reference Range Interpretation Comments Amylase Lvl (test code = Amylase Lvl) 19 25-115 [facility] CenterTechn[facility] [id number] 10:09:00 Test Item Value Reference Range Interpretation Comments Lipase Lvl (test code = Lipase Lvl) no gt 74-393 [facility] CenterOndfzwqPNLFUTEGOL6407-11-04 10:09:00 Test Item Value Reference Range Interpretation Comments PTT (test code = PTT) 41.4 s 22.9-35.8 [facility] CenterZwmultbCPIPSYWWLE5836-93-98 10:09:00 Test Item Value Reference Range Interpretation Comments PT (test code = PT) 15.4 s 12.0-14.7 [facility] CenterHuogilhQRRNEDAYNM9015-76-55 10:09:00 Test Item Value Reference Range Interpretation Comments INR (test code = INR) 1.24 1 0.85-1.17 [facility] CenterHdejgaaOQHJZDWDKA7089-21-08 10:09:00 Test Item Value Reference Range Interpretation Comments Fibrinogen Lvl (test code = Fibrinogen 312 230-510 Lvl) [facility] CenterQgeiomcFDUHDJNFCG6866-05-17 10:09:00 Test Item Value Reference Range Interpretation Comments Thrombin Time (test code = Thrombin 16.6 s 15.0-21.2 Time) [facility] CenterTwvapmtYPOUYYVHEA2623-24-27 10:09:00 Test Item Value Reference Range Interpretation Comments D-Dimer (test code = D-Dimer) 4.91 [facility] HospitalTbgugsnVMRFAAUAIU0109-42-23 10:09:00 Test Item Value Reference Range Interpretation Comments Basophils # (test code 0.1 See_Comment [Aut omated message] The = Basophils #) system which generated this result tra nsmitted reference range : <=0.2. The reference r leo was not used to int erpret this result as normal/abnormal . [facility] [id number] 10:09:00 Test Item Value Reference Range Interpretation Comments Hgb A1C (test code = Hgb A1C) 5.6 [facility] [employer] [id number] 10:09:00 Test Item Value Reference Range Interpretation Comments ALT (test code = ALT) 49 See_Comment [Auto mated message] The system which ge nerated this result transmit rohit reference range : <=65. The reference range was not used to interpr et this result as reji l/abnormal. [facility] [employer] [id number] 10:09:00 Test Item Value Reference Range Interpretation Comments Albumin Lvl (test code = Albumin Lvl) 2.8 3.5-5.0 [facility] [employer] [id number] 10:09:00 Test Item Value Reference Range Interpretation Comments Alk Phos (test code = Alk Phos) 41 39-136 [facility] [employer] [id number] 10:09:00 Test Item Value Reference Range Interpretation Comments Bili Direct (test code 0.2 See_Comment [Aut omated message] The = Bili Direct) system which generated this result tra nsmitted reference range : <=0.3. The reference r leo was not used to int erpret this result as reji l/abnormal. [facility]2021-08-04 10:09:00 Test Item Value Reference Range Interpretation Comments Bili Total (test code = Bili Total) 0.6 0.2-1.3 [facility]2021-08-04 10:09:00 Test Item Value Reference Range Interpretation Comments Bili Indirect (test 0.4 See_Comment [Automa rohit message] The code = Bili Indirect) system which generated this result tra nsmitted reference range : <=1.0. The reference r leo was not used to int erpret this result as normal/abnormal . [facility]2021-08-04 10:09:00 Test Item Value Reference Range Interpretation Comments Total Protein (test code = Total 5.6 6.4-8.4 Protein) [facility]2021-08-04 10:09:00 Test Item Value Reference Range Interpretation Comments AST (test code = AST) 33 See_Comment [Auto mated message] The system which ge nerated this result transmit rohit reference range : <=37. The reference range was not used to interpr et this result as reji l/abnormal. [facility]2021-08-04 10:09:00 Test Item Value Reference Range Interpretation Comments Globulin (test code = Globulin) 2.8 2.7-4.2 [facility]2021-08-04 10:09:00 Test Item Value Reference Range Interpretation Comments A/G Ratio (test code = A/G Ratio) 1.0 1 0.7-1.6 [facility]2021-08-04 10:09:00 Test Item Value Reference Range Interpretation Comments Amylase Lvl (test code = Amylase Lvl) 19 25-115 [facility]2021-08-04 10:09:00 Test Item Value Reference Range Interpretation Comments Lipase Lvl (test code = Lipase Lvl) no gt 73-393 [facility] CenterMsevuzyFBJZIZAPWE7428-61-65 10:09:00 Test Item Value Reference Range Interpretation Comments PTT (test code = PTT) 41.4 s 22.9-35.8 [facility] HospitalMfvtcokMKLURUGPSO6005-34-78 10:09:00 Test Item Value Reference Range Interpretation Comments PT (test code = PT) 15.4 s 12.0-14.7 [facility] HospitalIfeklpdFVPXPUVBMS8223-41-42 10:09:00 Test Item Value Reference Range Interpretation Comments INR (test code = INR) 1.24 1 0.85-1.17 [facility] HospitalNsymgnxHRFKDNJDBU3067-46-50 10:09:00 Test Item Value Reference Range Interpretation Comments Fibrinogen Lvl (test code = Fibrinogen 312 230-510 Lvl) [facility] CenterPjlmrcvQENZLYIKDV7122-95-91 10:09:00 Test Item Value Reference Range Interpretation Comments Thrombin Time (test code = Thrombin 16.6 s 15.0-21.2 Time) [facility] CenterExvhrgpBKDWBYYCIZ1762-12-19 10:09:00 Test Item Value Reference Range Interpretation Comments D-Dimer (test code = D-Dimer) 4.91 [facility] CenterGmdfovlANPLZXXCQS4596-12-81 10:09:00 Test Item Value Reference Range Interpretation Comments Basophils # (test code 0.1 See_Comment [Aut omated message] The = Basophils #) system which generated this result tra nsmitted reference range : <=0.2. The reference r leo was not used to int erpret this result as normal/abnormal . [facility] [id number] 10:09:00 Test Item Value Reference Range Interpretation Comments Hgb A1C (test code = Hgb A1C) 5.6 [facility] CenterCHEM [id number] 09:07:00 Test Item Value Reference Range Interpretation Comments Amylase Lvl (test code = Amylase Lvl) 4 25-115 [facility] CenterBrvrpejNANWQXPWKD5364-52-40 09:07:00 Test Item Value Reference Range Interpretation Comments Thrombin Time (test code = Thrombin 18.0 s 15.0-21.2 Time) [facility] CenterLermazwAUCPAWXLAR3090-27-28 09:07:00 Test Item Value Reference Range Interpretation Comments PT (test code = PT) 24.6 s 12.0-14.7 [facility] CenterSigkxwmSZDQCLEZQP8263-91-75 09:07:00 Test Item Value Reference Range Interpretation Comments INR (test code = INR) 2.31 1 0.85-1.17 [facility] CenterWhfqtdiCDQXJRHVIY4729-76-80 09:07:00 Test Item Value Reference Range Interpretation Comments PTT (test code = PTT) 57.5 s 22.9-35.8 [place] 948411-08-04 09:07:00 Test Item Value Reference Range Interpretation Comments Fibrinogen Lvl (test code = Fibrinogen 125 230-510 Lvl) [facility] CenterOtkjvmuQMODYXKNFU5485-63-27 09:07:00 Test Item Value Reference Range Interpretation Comments D-Dimer (test code = D-Dimer) 2.28 [facility]2021-08-04 09:07:00 Test Item Value Reference Range Interpretation Comments Amylase Lvl (test code = Amylase Lvl) 4 - [facility] CenterJxsbmpqZXGFXVGANL2532-91-28 09:07:00 Test Item Value Reference Range Interpretation Comments Thrombin Time (test code = Thrombin 18.0 s 15.0-21.2 Time) [facility] CenterWhhxzvoISYFXPNOKK0232-56-86 09:07:00 Test Item Value Reference Range Interpretation Comments PT (test code = PT) 24.6 s 12.0-14.7 [facility] CenterSycpmdbVUVQSYIJWX5710-02-12 09:07:00 Test Item Value Reference Range Interpretation Comments INR (test code = INR) 2.31 1 0.85-1.17 [facility] CenterHttdeflMBKOOMELKL2613-99-77 09:07:00 Test Item Value Reference Range Interpretation Comments PTT (test code = PTT) 57.5 s 22.9-35.8 [facility] CenterAnxmzymWNBSEGZLFW3732-89-65 09:07:00 Test Item Value Reference Range Interpretation Comments Fibrinogen Lvl (test code = Fibrinogen 125 230-510 Lvl) [facility] CenterMwdfeuzRVXBKWYZII0029-13-31 09:07:00 Test Item Value Reference Range Interpretation Comments D-Dimer (test code = D-Dimer) 2.28 [facility]2021-08-04 09:07:00 Test Item Value Reference Range Interpretation Comments Amylase Lvl (test code = Amylase Lvl) 4 25- [facility] CenterLuknnkjWSLEJOXXCK2818-01-10 09:07:00 Test Item Value Reference Range Interpretation Comments Thrombin Time (test code = Thrombin 18.0 s 15.0-21.2 Time) [facility] CenterNlravyuSABVLZBLLL2268-56-44 09:07:00 Test Item Value Reference Range Interpretation Comments PT (test code = PT) 24.6 s 12.0-14.7 [place] 948411-08-04 09:07:00 Test Item Value Reference Range Interpretation Comments INR (test code = INR) 2.31 1 0.85-1.17 [place] 948411-08-04 09:07:00 Test Item Value Reference Range Interpretation Comments PTT (test code = PTT) 57.5 s 22.9-35.8 [place] 948411-08-04 09:07:00 Test Item Value Reference Range Interpretation Comments Fibrinogen Lvl (test code = Fibrinogen 125 230-510 Lvl) [facility] CenterMzwhhuyPVYQWCEOXI6773-28-76 09:07:00 Test Item Value Reference Range Interpretation Comments D-Dimer (test code = D-Dimer) 2.28 [facility]2021-08-04 09:07:00 Test Item Value Reference Range Interpretation Comments Amylase Lvl (test code = Amylase Lvl) 4 - [facility] CenterKnqteadZHKPCUALZG6963-01-57 09:07:00 Test Item Value Reference Range Interpretation Comments Thrombin Time (test code = Thrombin 18.0 s 15.0-21.2 Time) [facility] CenterIbytifkEWLAXBDJMD1487-02-44 09:07:00 Test Item Value Reference Range Interpretation Comments PT (test code = PT) 24.6 s 12.0-14.7 [facility] CenterImkoevhUDXEHPYQNO3895-23-70 09:07:00 Test Item Value Reference Range Interpretation Comments INR (test code = INR) 2.31 1 0.85-1.17 [facility] CenterMxkohqbHKOJZDWXEK7760-24-50 09:07:00 Test Item Value Reference Range Interpretation Comments PTT (test code = PTT) 57.5 s 22.9-35.8 [place] 948411-08-04 09:07:00 Test Item Value Reference Range Interpretation Comments Fibrinogen Lvl (test code = Fibrinogen 125 230-510 Lvl) [facility] CenterJcimkbyFWRZTYKVMW3367-75-81 09:07:00 Test Item Value Reference Range Interpretation Comments D-Dimer (test code = D-Dimer) 2.28 [facility]2021-08-04 09:07:00 Test Item Value Reference Range Interpretation Comments Amylase Lvl (test code = Amylase Lvl) 4 - [place] 948411-08-04 09:07:00 Test Item Value Reference Range Interpretation Comments Thrombin Time (test code = Thrombin 18.0 s 15.0-21.2 Time) [facility]ZzoirpzFNYBMIQVKL8460-97-21 09:07:00 Test Item Value Reference Range Interpretation Comments PT (test code = PT) 24.6 s 12.0-14.7 [facility] HospitalLzgvgpeOEJACGRIZI3909-84-95 09:07:00 Test Item Value Reference Range Interpretation Comments INR (test code = INR) 2.31 1 0.85-1.17 [facility] CenterVnrpfizFZDOAJKANT8844-12-10 09:07:00 Test Item Value Reference Range Interpretation Comments PTT (test code = PTT) 57.5 s 22.9-35.8 [facility] HospitalHoghvjyEDGYNYJYIR0382-53-87 09:07:00 Test Item Value Reference Range Interpretation Comments Fibrinogen Lvl (test code = Fibrinogen 125 230-510 Lvl) [facility] CenterZlcynfzGEIJJVNHFB3246-88-78 09:07:00 Test Item Value Reference Range Interpretation Comments D-Dimer (test code = D-Dimer) 2.28 [facility] SUADFQE9810-37-46 04:52:00 Test Item Value Reference Range Interpretation Comments RBC product (test code Product available = RBC product) (01/21/21 11:52 PM) [facility] [id number] 04:52:00 Test Item Value Reference Range Interpretation Comments RBC product (test code Product available = RBC product) (01/21/21 11:52 PM) [facility] [id number] 04:52:00 Test Item Value Reference Range Interpretation Comments RBC product (test code Product available = RBC product) (01/21/21 11:52 PM) [facility] [id number] 04:52:00 Test Item Value Reference Range Interpretation Comments RBC product (test code Product available = RBC product) (01/21/21 11:52 PM) [facility] [id number] 04:52:00 Test Item Value Reference Range Interpretation Comments RBC product (test code Product available = RBC product) (01/21/21 11:52 PM) [facility] CenterCARDIAC [id number] 00:38:00 Test Item Value Reference Range Interpretation Comments Troponin-I (test code no gt See_Comment [Auto mated message] The = Troponin-I) system which g enerated this result transmit rohit reference range : <=0.40. The reference r leo was not used to interpr et this result as reji l/abnormal. [facility]2021-08-04 00:38:00 Test Item Value Reference Range Interpretation Comments Troponin-I (test code no gt See_Comment [Auto mated message] The = Troponin-I) system which g enerated this result transmit rohit reference range : <=0.40. The reference r leo was not used to interpr et this result as reji l/abnormal. [facility]2021-08-04 00:38:00 Test Item Value Reference Range Interpretation Comments Troponin-I (test code no gt See_Comment [Auto mated message] The = Troponin-I) system which g enerated this result transmit rohit reference range : <=0.40. The reference r leo was not used to interpr et this result as reji l/abnormal. [facility]2021-08-04 00:38:00 Test Item Value Reference Range Interpretation Comments Troponin-I (test code no gt See_Comment [Auto mated message] The = Troponin-I) system which g enerated this result transmit rohit reference range : <=0.40. The reference r leo was not used to interpr et this result as reji l/abnormal. [facility]2021-08-04 00:38:00 Test Item Value Reference Range Interpretation Comments Troponin-I (test code no gt See_Comment [Auto mated message] The = Troponin-I) system which g enerated this result transmit rohit reference range : <=0.40. The reference r leo was not used to interpr et this result as reji l/abnormal. [facility]2021-08-03 17:47:00 Test Item Value Reference Range Interpretation Comments BNP (test code = BNP) 2324 [facility]2021-08-03 17:47:00 Test Item Value Reference Range Interpretation Comments Troponin-I (test code 0.02 See_Comment [Auto mated message] The = Troponin-I) system which g enerated this result transmit rohit reference range : <=0.40. The reference r leo was not used to interpr et this result as reji l/abnormal. [facility] CenterMhwqdjnQOWEPPWJZM0819-51-60 17:47:00 Test Item Value Reference Range Interpretation Comments Hep Bs Ag (test code Negative *NA*(01/21/21 = Hep Bs Ag) 12:47 PM) [facility] CenterZenDealsAC BGCISKU0501-31-92 17:47:00 Test Item Value Reference Range Interpretation Comments BNP (test code = BNP) 2323 [facility] CenterannCARAC [id number] 17:47:00 Test Item Value Reference Range Interpretation Comments Troponin-I (test code 0.02 See_Comment [Auto mated message] The = Troponin-I) system which g enerated this result transmit rohit reference range : <=0.40. The reference r leo was not used to interpr et this result as reji l/abnormal. [facility] CenterEebzcbwSPQPVAPNYA7631-85-82 17:47:00 Test Item Value Reference Range Interpretation Comments Hep Bs Ag (test code Negative *NA*(01/21/21 = Hep Bs Ag) 12:47 PM) [facility] CenterZenDeals [id number] 17:47:00 Test Item Value Reference Range Interpretation Comments BNP (test code = BNP) 2323 [facility] CenterZenDealsAC [id number] 17:47:00 Test Item Value Reference Range Interpretation Comments Troponin-I (test code 0.02 See_Comment [Auto mated message] The = Troponin-I) system which g enerated this result transmit rohit reference range : <=0.40. The reference r leo was not used to interpr et this result as reji l/abnormal. [facility] CenterFrnnmxfVUJMFKQEJO7308-70-60 17:47:00 Test Item Value Reference Range Interpretation Comments Hep Bs Ag (test code Negative *NA*(01/21/21 = Hep Bs Ag) 12:47 PM) [facility] CenterZenDealsAC [id number] 17:47:00 Test Item Value Reference Range Interpretation Comments BNP (test code = BNP) 2324 [facility] CenterannCARDIAC CBHLLYC9556-81-03 17:47:00 Test Item Value Reference Range Interpretation Comments Troponin-I (test code 0.02 See_Comment [Auto mated message] The = Troponin-I) system which g enerated this result transmit rohit reference range : <=0.40. The reference r leo was not used to interpr et this result as reji l/abnormal. [facility] [id number] 17:47:00 Test Item Value Reference Range Interpretation Comments Hep Bs Ag (test code Negative *NA*(01/21/21 = Hep Bs Ag) 12:47 PM) [facility] AlkymosannCARDIAC [id number] 17:47:00 Test Item Value Reference Range Interpretation Comments BNP (test code = BNP) 2324 [facility] CenterannCARShopReplyAC [id number] 17:47:00 Test Item Value Reference Range Interpretation Comments Troponin-I (test code 0.02 See_Comment [Auto mated message] The = Troponin-I) system which g enerated this result transmit rohit reference range : <=0.40. The reference r leo was not used to interpr et this result as reji l/abnormal. [facility] [id number] 17:47:00 Test Item Value Reference Range Interpretation Comments Hep Bs Ag (test code Negative *NA*(01/21/21 = Hep Bs Ag) 12:47 PM) [facility] [employer] [id number] 17:43:00 Test Item Value Reference Range Interpretation Comments B/C Ratio (test code = B/C Ratio) 5 1 6-25 [facility] [employer] [id number] 17:43:00 Test Item Value Reference Range Interpretation Comments ALT (test code = ALT) 66 See_Comment [Auto mated message] The system which ge nerated this result transmit rohit reference range : <=65. The reference range was not used to interpr et this result as reji l/abnormal. [facility] [employer] [id number] 17:43:00 Test Item Value Reference Range Interpretation Comments Albumin Lvl (test code = Albumin Lvl) 3.0 3.5-5.0 [facility] [employer] [id number] 17:43:00 Test Item Value Reference Range Interpretation Comments Alk Phos (test code = Alk Phos) 40 39-136 [facility] [employer] [id number] 17:43:00 Test Item Value Reference Range Interpretation Comments Bili Total (test code = Bili Total) 0.5 0.2-1.3 [facility] [employer] [id number] 17:43:00 Test Item Value Reference Range Interpretation Comments Total Protein (test code = Total 5.7 6.4-8.4 Protein) [facility] [employer] [id number] 17:43:00 Test Item Value Reference Range Interpretation Comments AST (test code = AST) 52 See_Comment [Auto mated message] The system which ge nerated this result transmit rohit reference range : <=37. The reference range was not used to interpr et this result as reji l/abnormal. [facility] [employer] [id number] 17:43:00 Test Item Value Reference Range Interpretation Comments Globulin (test code = Globulin) 2.7 2.7-4.2 [facility] [employer] [id number] 17:43:00 Test Item Value Reference Range Interpretation Comments A/G Ratio (test code = A/G Ratio) 1.1 1 0.7-1.6 [facility] [employer] [id number] 17:43:00 Test Item Value Reference Range Interpretation Comments Lactic Acid Lvl (test code = Lactic 1.1 0.5-2.2 Acid Lvl) [facility] [employer] [id number] 17:43:00 Test Item Value Reference Range Interpretation Comments B/C Ratio (test code = B/C Ratio) 5 1 6-25 [facility] [id number] 17:43:00 Test Item Value Reference Range Interpretation Comments ALT (test code = ALT) 66 See_Comment [Auto mated message] The system which ge nerated this result transmit rohit reference range : <=65. The reference range was not used to interpr et this result as reji l/abnormal. [facility] [employer] [id number] 17:43:00 Test Item Value Reference Range Interpretation Comments Albumin Lvl (test code = Albumin Lvl) 3.0 3.5-5.0 [facility] [employer] [id number] 17:43:00 Test Item Value Reference Range Interpretation Comments Alk Phos (test code = Alk Phos) 40 39-136 [facility] [employer] [id number] 17:43:00 Test Item Value Reference Range Interpretation Comments Bili Total (test code = Bili Total) 0.5 0.2-1.3 [facility] [employer] [id number] 17:43:00 Test Item Value Reference Range Interpretation Comments Total Protein (test code = Total 5.7 6.4-8.4 Protein) [facility] [employer] [id number] 17:43:00 Test Item Value Reference Range Interpretation Comments AST (test code = AST) 52 See_Comment [Auto mated message] The system which ge nerated this result transmit rohit reference range : <=37. The reference range was not used to interpr et this result as reji l/abnormal. [facility] [employer] [id number] 17:43:00 Test Item Value Reference Range Interpretation Comments Globulin (test code = Globulin) 2.7 2.7-4.2 [facility] [employer] [id number] 17:43:00 Test Item Value Reference Range Interpretation Comments A/G Ratio (test code = A/G Ratio) 1.1 1 0.7-1.6 [facility] [employer] [id number] 17:43:00 Test Item Value Reference Range Interpretation Comments Lactic Acid Lvl (test code = Lactic 1.1 0.5-2.2 Acid Lvl) [facility] [employer] [id number] 17:43:00 Test Item Value Reference Range Interpretation Comments B/C Ratio (test code = B/C Ratio) 5 1 6-25 [facility] [id number] 17:43:00 Test Item Value Reference Range Interpretation Comments ALT (test code = ALT) 66 See_Comment [Auto mated message] The system which ge nerated this result transmit rohit reference range : <=65. The reference range was not used to interpr et this result as reji l/abnormal. [facility] [employer] [id number] 17:43:00 Test Item Value Reference Range Interpretation Comments Albumin Lvl (test code = Albumin Lvl) 3.0 3.5-5.0 [facility] [employer] [id number] 17:43:00 Test Item Value Reference Range Interpretation Comments Alk Phos (test code = Alk Phos) 40 39-136 [facility] [employer] [id number] 17:43:00 Test Item Value Reference Range Interpretation Comments Bili Total (test code = Bili Total) 0.5 0.2-1.3 [facility] [employer] [id number] 17:43:00 Test Item Value Reference Range Interpretation Comments Total Protein (test code = Total 5.7 6.4-8.4 Protein) [facility] [employer] [id number] 17:43:00 Test Item Value Reference Range Interpretation Comments AST (test code = AST) 52 See_Comment [Auto mated message] The system which ge nerated this result transmit rohit reference range : <=37. The reference range was not used to interpr et this result as reji l/abnormal. [facility] [id number] 17:43:00 Test Item Value Reference Range Interpretation Comments Globulin (test code = Globulin) 2.7 2.7-4.2 [facility] [employer] [id number] 17:43:00 Test Item Value Reference Range Interpretation Comments A/G Ratio (test code = A/G Ratio) 1.1 1 0.7-1.6 [facility] [id number] 17:43:00 Test Item Value Reference Range Interpretation Comments Lactic Acid Lvl (test code = Lactic 1.1 0.5-2.2 Acid Lvl) [facility] [id number] 17:43:00 Test Item Value Reference Range Interpretation Comments B/C Ratio (test code = B/C Ratio) 5 1 6-25 [facility] [id number] 17:43:00 Test Item Value Reference Range Interpretation Comments ALT (test code = ALT) 66 See_Comment [Auto mated message] The system which ge nerated this result transmit rohit reference range : <=65. The reference range was not used to interpr et this result as reji l/abnormal. [facility] [id number] 17:43:00 Test Item Value Reference Range Interpretation Comments Albumin Lvl (test code = Albumin Lvl) 3.0 3.5-5.0 [facility] [id number] 17:43:00 Test Item Value Reference Range Interpretation Comments Alk Phos (test code = Alk Phos) 40 39-136 [facility] [employer] [id number] 17:43:00 Test Item Value Reference Range Interpretation Comments Bili Total (test code = Bili Total) 0.5 0.2-1.3 [facility] [id number] 17:43:00 Test Item Value Reference Range Interpretation Comments Total Protein (test code = Total 5.7 6.4-8.4 Protein) [facility] [id number] 17:43:00 Test Item Value Reference Range Interpretation Comments AST (test code = AST) 52 See_Comment [Auto mated message] The system which ge nerated this result transmit rohit reference range : <=37. The reference range was not used to interpr et this result as reji l/abnormal. [facility] [employer] [id number] 17:43:00 Test Item Value Reference Range Interpretation Comments Globulin (test code = Globulin) 2.7 2.7-4.2 [facility] [id number] 17:43:00 Test Item Value Reference Range Interpretation Comments A/G Ratio (test code = A/G Ratio) 1.1 1 0.7-1.6 [facility] [id number] 17:43:00 Test Item Value Reference Range Interpretation Comments Lactic Acid Lvl (test code = Lactic 1.1 0.5-2.2 Acid Lvl) [facility] [id number] 17:43:00 Test Item Value Reference Range Interpretation Comments B/C Ratio (test code = B/C Ratio) 5 1 6-25 [facility] [id number] 17:43:00 Test Item Value Reference Range Interpretation Comments ALT (test code = ALT) 66 See_Comment [Auto mated message] The system which ge nerated this result transmit rohit reference range : <=65. The reference range was not used to interpr et this result as reji l/abnormal. [facility] [employer] [id number] 17:43:00 Test Item Value Reference Range Interpretation Comments Albumin Lvl (test code = Albumin Lvl) 3.0 3.5-5.0 [facility] [id number] 17:43:00 Test Item Value Reference Range Interpretation Comments Alk Phos (test code = Alk Phos) 40 39-136 [facility] [id number] 17:43:00 Test Item Value Reference Range Interpretation Comments Bili Total (test code = Bili Total) 0.5 0.2-1.3 [facility] [id number] 17:43:00 Test Item Value Reference Range Interpretation Comments Total Protein (test code = Total 5.7 6.4-8.4 Protein) [facility] [id number] 17:43:00 Test Item Value Reference Range Interpretation Comments AST (test code = AST) 52 See_Comment [Auto mated message] The system which ge nerated this result transmit rohit reference range : <=37. The reference range was not used to interpr et this result as reji l/abnormal. [facility] [employer] [id number] 17:43:00 Test Item Value Reference Range Interpretation Comments Globulin (test code = Globulin) 2.7 2.7-4.2 [facility] [employer] [id number] 17:43:00 Test Item Value Reference Range Interpretation Comments A/G Ratio (test code = A/G Ratio) 1.1 1 0.7-1.6 [facility] [employer] [id number] 17:43:00 Test Item Value Reference Range Interpretation Comments Lactic Acid Lvl (test code = Lactic 1.1 0.5-2.2 Acid Lvl) [facility] [employer] [id number] 16:20:00 Test Item Value Reference Range Interpretation Comments ABO/Rh (test code = ABO/Rh) B POS [facility] [employer] [id number] 16:20:00 Test Item Value Reference Range Interpretation Comments Antibody Scrn (test Negative (01/21/21 11:20 code = Antibody Scrn) AM) [facility] [id number] 16:20:00 Test Item Value Reference Range Interpretation Comments Anisocyte (test code = 1+ *ABN*(01/21/21 Anisocyte) 11:20 AM) [facility] [employer] [id number] 16:20:00 Test Item Value Reference Range Interpretation Comments ABO/Rh (test code = ABO/Rh) B POS [facility] [employer] [id number] 16:20:00 Test Item Value Reference Range Interpretation Comments Antibody Scrn (test Negative (01/21/21 11:20 code = Antibody Scrn) AM) [facility] [id number] 16:20:00 Test Item Value Reference Range Interpretation Comments Anisocyte (test code = 1+ *ABN*(01/21/21 Anisocyte) 11:20 AM) [facility] [employer] [id number] 16:20:00 Test Item Value Reference Range Interpretation Comments ABO/Rh (test code = ABO/Rh) B POS [facility] [id number] 16:20:00 Test Item Value Reference Range Interpretation Comments Antibody Scrn (test Negative (01/21/21 11:20 code = Antibody Scrn) AM) [id number] 16:20:00 Test Item Value Reference Range Interpretation Comments Anisocyte (test code = 1+ *ABN*(01/21/21 Anisocyte) 11:20 AM) [facility] [employer] [id number] 16:20:00 Test Item Value Reference Range Interpretation Comments ABO/Rh (test code = ABO/Rh) B POS [facility] [id number] 16:20:00 Test Item Value Reference Range Interpretation Comments Antibody Scrn (test Negative (01/21/21 11:20 code = Antibody Scrn) AM) [facility] [id number] 16:20:00 Test Item Value Reference Range Interpretation Comments Anisocyte (test code = 1+ *ABN*(01/21/21 Anisocyte) 11:20 AM) [facility] [id number] 16:20:00 Test Item Value Reference Range Interpretation Comments ABO/Rh (test code = ABO/Rh) B POS [facility] [id number] 16:20:00 Test Item Value Reference Range Interpretation Comments Antibody Scrn (test Negative (01/21/21 11:20 code = Antibody Scrn) AM) [id number] 16:20:00 Test Item Value Reference Range Interpretation Comments Anisocyte (test code = 1+ *ABN*(01/21/21 Anisocyte) 11:20 AM) [facility] [id number] 15:35:00 Test Item Value Reference Range Interpretation Comments Lactase Lvl (test code = Lactase Lvl) 2.0 [facility] [employer] [facility] [id number] 15:35:00 Test Item Value Reference Range Interpretation Comments Sucrase Lvl (test code = Sucrase Lvl) 38.6 [facility] [id number] 15:35:00 Test Item Value Reference Range Interpretation Comments Maltase Lvl (test code = Maltase Lvl) 177.2 [facility] [id number] 15:35:00 Test Item Value Reference Range Interpretation Comments Palatinase Lvl (test code = Palatinase 13.8 Lvl) [facility] [id number] 15:35:00 Test Item Value Reference Range Interpretation Comments Lactase Lvl (test code = Lactase Lvl) 2.0 [facility] [id number] 15:35:00 Test Item Value Reference Range Interpretation Comments Sucrase Lvl (test code = Sucrase Lvl) 38.6 [facility] LAB [id number] 15:35:00 Test Item Value Reference Range Interpretation Comments Maltase Lvl (test code = Maltase Lvl) 177.2 [facility] LAB [id number] 15:35:00 Test Item Value Reference Range Interpretation Comments Palatinase Lvl (test code = Palatinase 13.8 Lvl) [facility] [id number] 15:35:00 Test Item Value Reference Range Interpretation Comments Lactase Lvl (test code = Lactase Lvl) 2.0 [facility] [id number] 15:35:00 Test Item Value Reference Range Interpretation Comments Sucrase Lvl (test code = Sucrase Lvl) 38.6 [facility] LAB [id number] 15:35:00 Test Item Value Reference Range Interpretation Comments Maltase Lvl (test code = Maltase Lvl) 177.2 [facility] LAB [id number] 15:35:00 Test Item Value Reference Range Interpretation Comments Palatinase Lvl (test code = Palatinase 13.8 Lvl) [facility] [id number] 15:35:00 Test Item Value Reference Range Interpretation Comments Lactase Lvl (test code = Lactase Lvl) 2.0 [facility] LAB [id number] 15:35:00 Test Item Value Reference Range Interpretation Comments Sucrase Lvl (test code = Sucrase Lvl) 38.6 [facility] LAB [id number] 15:35:00 Test Item Value Reference Range Interpretation Comments Maltase Lvl (test code = Maltase Lvl) 177.2 [facility]annREF[facility] [id number] 15:35:00 Test Item Value Reference Range Interpretation Comments Palatinase Lvl (test code = Palatinase 13.8 Lvl) [facility]annREFK[facility] [id number] 15:35:00 Test Item Value Reference Range Interpretation Comments Lactase Lvl (test code = Lactase Lvl) 2.0 [facility]annREF[facility] [id number] 15:35:00 Test Item Value Reference Range Interpretation Comments Sucrase Lvl (test code = Sucrase Lvl) 38.6 [facility]annREF[facility] [id number] 15:35:00 Test Item Value Reference Range Interpretation Comments Maltase Lvl (test code = Maltase Lvl) 177.2 [facility] [id number] 15:35:00 Test Item Value Reference Range Interpretation Comments Palatinase Lvl (test code = Palatinase 13.8 Lvl) [id number] 13:21:00 Test Item Value Reference Range Interpretation Comments Potassium WB (test code = Potassium WB) 5.1 3.5-5.1 [facility] Ce[id number] 13:21:00 Test Item Value Reference Range Interpretation Comments S Preg (test code = S Negative 8*NA*(01/21/21 Preg) 8:21 AM) [facility] H[id number] 13:21:00 Test Item Value Reference Range Interpretation Comments Potassium WB (test code = Potassium WB) 5.1 3.5-5.1 [facility] Ce[id number] 13:21:00 Test Item Value Reference Range Interpretation Comments S Preg (test code = S Negative 8*NA*(01/21/21 Preg) 8:21 AM) [facility] Hos[id number] 13:21:00 Test Item Value Reference Range Interpretation Comments Potassium WB (test code = Potassium WB) 5.1 3.5-5.[address] [facility] Cen[id number] 13:21:00 Test Item Value Reference Range Interpretation Comments S Preg (test code = S Negative 8*NA*(01/21/21 Preg) 8:21 AM) [facility] HospitalRdfpqlkDSRVHTLUFIUP5225-24-24 13:21:00 Test Item Value Reference Range Interpretation Comments Potassium WB (test code = Potassium WB) 5.1 3.5-5.1 [place] [id number] 13:21:00 Test Item Value Reference Range Interpretation Comments S Preg (test code = S Negative 8*NA*(01/21/21 Preg) 8:21 AM) [facility] HospitalMwhcbfcSWKCSSAGMIAY1780-19-02 13:21:00 Test Item Value Reference Range Interpretation Comments Potassium WB (test code = Potassium WB) 5.1 3.5-5.1 [place] [id number] 13:21:00 Test Item Value Reference Range Interpretation Comments S Preg (test code = S Negative 8*NA*(01/21/21 Preg) 8:21 AM) [place] [id number] 11:19:00 Test Item Value Reference Range Interpretation Comments Coronavirus (COVID-19) Not Detected (01/21/21 EMANUEL (test code = 6:19 AM) Coronavirus (COVID-19) EMANUEL) [facility] H[id number] 11:19:00 Test Item Value Reference Range Interpretation Comments Coronavirus (COVID-19) Not Detected (01/21/21 EMANUEL (test code = 6:19 AM) Coronavirus (COVID-19) EMANUEL) [facility] HospitalBhcnydoVUBAIQCWHH4054-97-41 11:19:00 Test Item Value Reference Range Interpretation Comments Coronavirus (COVID-19) Not Detected (01/21/21 EMANUEL (test code = 6:19 AM) Coronavirus (COVID-19) EMANUEL) [facility] HospitalRjaxkgvASPOSRWACV8975-07-04 11:19:00 Test Item Value Reference Range Interpretation Comments Coronavirus (COVID-19) Not Detected (01/21/21 EMANUEL (test code = 6:19 AM) Coronavirus (COVID-19) EMANUEL) [place] [id number] 11:19:00 Test Item Value Reference Range Interpretation Comments Coronavirus (COVID-19) Not Detected (01/21/21 EMANUEL (test code = 6:19 AM) Coronavirus (COVID-19) EMANUEL) [facility] [id number] 16:39:05 Test Item Value Reference Range Interpretation Comments Glucose POC (test 183 mg/dL 70-115 H If you con dry color tester your code = Glucose POC) patient critically ill, the Merlin-Accu Check Infrom II meter should not be used for Glucose determination. Draw a venous Glucose and send to the main Lab for analysis. Urine [id number] 11:32:13 Test Item Value Reference Range Interpretation [...] Report) Escherichia coli C Urine Added by [email or web address]_[facility] [id number] 07:52:10 Test Item Value Reference Range Interpretation Comments Glucose POC (test 160 mg/dL 70-115 H If you con dry color tester your code = Glucose POC) patient critically ill, the Merlin-Accu Check Infrom II meter should not be used for Glucose determination. Draw a venous Glucose and send to the main Lab for analysis. POC [id number] 19:32:05 Test Item Value Reference Range Interpretation Comments Glucose POC (test 184 mg/dL 70-115 H If you con dry color tester your code = Glucose POC) patient critically ill, the Merlin-Accu Check Infrom II meter should not be used for Glucose determination. Draw a venous Glucose and send to the main Lab for analysis. POC [id number] 17:16:35 Test Item Value Reference Range Interpretation Comments Glucose POC (test 281 mg/dL 70-115 H Notify RN or MDIf you code = Glucose POC) consider your patient critically ill, the [employer]-Accu Chec k Infrom II meter should not be used for Glucos e determination. Draw a venous Glucose and send to the main Lab for analysis. POC [id number] 12:00:38 Test Item Value Reference Range Interpretation Comments Glucose POC (test 138 mg/dL 70-115 H Notify RN or MDIf you code = Glucose POC) consider your patient critically ill, the [employer]-Accu Chec k Infrom II meter should not be used for Glucos e determination. Draw a venous Glucose and send to the main Lab for analysis. POC [id number] 07:41:32 Test Item Value Reference Range Interpretation Comments Glucose POC (test 206 mg/dL 70-115 H Notify RN or MDIf you code = Glucose POC) consider your patient critically ill, the [employer]-Accu Chec k Infrom II meter should not be used for Glucos e determination. Draw a venous Glucose and send to the main Lab for analysis. Urinalysis Zekptdgvihv7912-26-05 21:07:21 Test Item Value Reference Range Interpretation Comments UA WBC (test code = UA WBC) TNTC 0-5 A UA RBC (test code = UA RBC) 6-10 0-5 A UA Bacteria (test code = UA Bacteria) Profuse A UA Squam Epithelial (test code = UA 6-10 A Squam Epithelial) Urinalysis with Culture, if [id number] 20:35:14 Test Item Value Reference Range Interpretation [...] Micro Indicated Not Indicated A Ind?) POC [id number] 19:06:34 Test Item Value Reference Range Interpretation Comments Glucose POC (test 207 mg/dL 70-115 H If you con dry color tester your code = Glucose POC) patient critically ill, the Merlin-Accu Check Infrom II meter should not be used for Glucose determination. Draw a venous Glucose and send to the main Lab for analysis. POC [id number] 17:12:03 Test Item Value Reference Range Interpretation Comments Glucose POC (test 173 mg/dL 70-115 H Notify RN or MDIf you code = Glucose POC) consider your patient critically ill, the [employer]-Accu Chec k Infrom II meter should not be used for Glucos e determination. Draw a venous Glucose and send to the main Lab for analysis. POC [id number] 11:58:01 Test Item Value Reference Range Interpretation Comments Glucose POC (test 289 mg/dL 70-115 H Notify RN or MDIf you code = Glucose POC) consider your patient critically ill, the Merlin-Accu Chec k Infrom II meter should not be used for Glucos e determination. Draw a venous Glucose and send to the main Lab for analysis. POC [id number] 08:19:37 Test Item Value Reference Range Interpretation Comments Glucose POC (test 201 mg/dL 70-115 H Notify RN or MDIf you code = Glucose POC) consider your patient critically ill, the Merlin-Accu Chec k Infrom II meter should not be used for Glucos e determination. Draw a venous Glucose and send to the main Lab for analysis. POC [id number] 20:37:35 Test Item Value Reference Range Interpretation Comments Glucose POC (test 272 mg/dL 70-115 H If you con dry color tester your code = Glucose POC) patient critically ill, the Merlin-Accu Check Infrom II meter should not be used for Glucose determination. Draw a venous Glucose and send to the main Lab for analysis. POC [id number] 17:23:05 Test Item Value Reference Range Interpretation Comments Glucose POC (test 229 mg/dL 70-115 H If you con dry color tester your code = Glucose POC) patient critically ill, the Merlin-Accu Check Infrom II meter should not be used for Glucose determination. Draw a venous Glucose and send to the main Lab for analysis. POC [id number] 12:01:01 Test Item Value Reference Range Interpretation Comments Glucose POC (test 155 mg/dL 70-115 H If you con dry color tester your code = Glucose POC) patient critically ill, the Merlin-Accu Check Infrom II meter should not be used for Glucose determination. Draw a venous Glucose and send to the main Lab for analysis. POC [id number] 08:07:32 Test Item Value Reference Range Interpretation Comments Glucose POC (test 248 mg/dL 70-115 H If you con dry color tester your code = Glucose POC) patient critically ill, the Merlin-Accu Check Infrom II meter should not be used for Glucose determination. Draw a venous Glucose and send to the main Lab for analysis. IG [id number] 06:50:39 Test Item Value Reference Range Interpretation Comments IG (test code = IG) 0.7 % 0.0-5.0 IG Abs (test code = IG Abs) 0 x10 N Complete Blood Count with [id number] 06:50:38 Test Item Value Reference Range Interpretation [...] code = IPF) 0 % N Automated [id number] 06:50:38 Test Item Value Reference Range Interpretation Comments Neutro Auto (test code = Neutro 50.3 % 36.0-70.0 Auto) Lymph Auto (test code = Lymph Auto) 38.6 % 12.0-44.0 Cidra Auto (test code = Cidra Auto) 7.3 % 0.0-11.0 Eos, Auto (test code = Eos, Auto) 2.4 % 0.0-7.0 Basophil Auto (test code = Basophil 0.7 % 0.0-2.0 Auto) Neutro Absolute (test code = Neutro 3.0 x10 1.6-7.4 Absolute) Lymph Absolute (test code = Lymph 2.28 x10 .50-4.60 Absolute) Cidra Absolute (test code = Cidra .43 x10 .00-1.20 Absolute) Eos Absolute (test code = Eos 0.14 x10 0.00-0.74 Absolute) Baso Absolute (test code = Baso 0.04 x10 0.00-0.21 Absolute) Basic Metabolic [id number] 05:38:20 Test Item Value Reference Range Interpretation [...] = Lipemia) 0 mg/dL 8-11 Basic Metabolic [id number] 05:38:20 Test Item Value Reference Range Interpretation [...] = 0 mg/dL 8-11 Lipemia) Basic Metabolic [id number] 05:38:20 Test Item Value Reference Range Interpretation [...] code = 0 mg/dL 8-11 Lipemia) POC [id number] 20:28:33 Test Item Value Reference Range Interpretation Comments Glucose POC (test 169 mg/dL 70-115 H If you con dry color tester your code = Glucose POC) patient critically ill, the Merlin-Accu Check Infrom II meter should not be used for Glucose determination. Draw a venous Glucose and send to the main Lab for analysis. POC [id number] 16:39:30 Test Item Value Reference Range Interpretation Comments Glucose POC (test 103 mg/dL 70-115 If you con dry color tester your code = Glucose POC) patient critically ill, the Merlin-Accu Check Infrom II meter should not be used for Glucose determination. Draw a venous Glucose and send to the main Lab for analysis. RPR [id number] 12:08:56 Test Item Value Reference Range Interpretation Comments RPR Qual (test code = RPR Qual) Non-Reactive Non-Reactive Reactive Control (test code = Reactive Reactive Control) Weak Reactive Control (test Weak Reactive code = Weak Reactive Control) Non-Reactive Control (test code Non-Reactive = Non-Reactive Control) Lot # (test code = Lot #) [id number] N Expiration Dt (test code = 03-20-2021 N Expiration Dt) POC [id number] 11:52:31 Test Item Value Reference Range Interpretation Comments Glucose POC (test 250 mg/dL 70-115 H If you con dry color tester your code = Glucose POC) patient critically ill, the Merlin-Accu Check Infrom II meter should not be used for Glucose determination. Draw a venous Glucose and send to the main Lab for analysis. POC [id number] 07:55:29 Test Item Value Reference Range Interpretation Comments Glucose POC (test 205 mg/dL 70-115 H If you con dry color tester your code = Glucose POC) patient critically ill, the Merlin-Accu Check Infrom II meter should not be used for Glucose determination. Draw a venous Glucose and send to the main Lab for analysis. Lipid [id number] 05:46:04 Test Item Value Reference Range Interpretation [...] LDL/HDL Ratio=L DL Calc/HDL Chol Thyroid Stimulating [id number] 05:46:04 Test Item Value Reference Range Interpretation Comments TSH (test code = TSH) 3.274 mcIU/mL 0.550-4.780 Hemoglobin [id number] 05:41:08 Test Item Value Reference Range Interpretation Comments Hemoglobin A1c (test code 7.6 % 4.0-5.8 H Di abetic >=6.5 = Hemoglobin A1c) %Prediabet es 5.7-6.4 %Normal <5.7 % Hepatitis B Surface [id number] 21:19:36 Test Item Value Reference Range Interpretation Comments Hep Bs Ag (test code = Hep Bs Non-Reactive Non-Reactive Ag) Novel Coronavirus SARS-CoV-2, [id number] 11:16:16 Test Item Value Reference Range Interpretation [...] Emergency Use Authorization." Novel Coronavirus (COVID-19), EMANUEL [id number] 11:11:24TNPTest not sent and performed at [facility].Rapid was perfomed in Microbiology.Wrong covid test was ord ered.Urine DOA [id number] 00:17:49 Test Item Value Reference Range Interpretation [...] days. U Propoxyphene (test Negative Negative The [facility] is code = U Propoxyphene) presu mptive positive if the analyte concentration i s equal to or greater t scott 300 ng/ml.If confir mation of positive res ult is desired, please order Propoxyphene Confirmation wi thin 7 days. Alcohol [id number] 00:17:29 Test Item Value Reference Range Interpretation Comments Ethanol Level 9.0 mg/dL N The pharmacolo gical (test code = response to blo od alcohol Ethanol Level) levels may va ry from individual to i ndividual. The fatal omkar ntration has been report ed to be >400 mg/dl. Comprehensive Metabolic [id number] 00:17:28 Test Item Value Reference Range Interpretation [...] = Lipemia) 0 g/dL 1-2 Comprehensive Metabolic [id number] 00:17:28 Test Item Value Reference Range Interpretation [...] = 0 g/dL 1-2 Lipemia) Comprehensive Metabolic [id number] 00:17:28 Test Item Value Reference Range Interpretation [...] g/dL 1-2 Lipemia) Complete Blood Count with [id number] 23:26:28 Test Item Value Reference Range Interpretation [...] code = IPF) 0 % N Automated [id number] 23:26:28 Test Item Value Reference Range Interpretation Comments Neutro Auto (test code = Neutro 67.1 % 36.0-70.0 Auto) Lymph Auto (test code = Lymph Auto) 23.3 % 12.0-44.0 Cidra Auto (test code = Cidra Auto) 5.8 % 0.0-11.0 Eos, Auto (test code = Eos, Auto) 2.3 % 0.0-7.0 Basophil Auto (test code = Basophil 0.8 % 0.0-2.0 Auto) Neutro Absolute (test code = Neutro 6.0 x10 1.6-7.4 Absolute) Lymph Absolute (test code = Lymph 2.10 x10 .50-4.60 Absolute) Cidra Absolute (test code = Cidra .52 x10 .00-1.20 Absolute) Eos Absolute (test code = Eos 0.21 x10 0.00-0.74 Absolute) Baso Absolute (test code = Baso 0.07 x10 0.00-0.21 Absolute) IG [id number] 23:26:28 Test Item Value Reference Range Interpretation Comments IG (test code = IG) 0.7 % 0.0-5.0 IG Abs (test code = IG Abs) 0 x10 N HERPES VIRUS ANTIBODY, [id number] 21:46:00 Test Item Value Reference Range Interpretation Comments HERPES VIRUS IGM (AKER) Negative SE E ATTACHMENT (test code = 1808) BLOOD [id number] 06:00:00 Test Item Value Reference Range Interpretation Comments CULTURE (BEAKER) (test No growth in 5 days code = 1095) BLOOD [id number] 06:00:00 Test Item Value Reference Range Interpretation Comments CULTURE (BEAKER) (test No growth in 5 days code = 1095) POCT-GLUCOSE [id number] 12:11:00 Test Item Value Reference Range Interpretation Comments POC-GLUCOSE METER 154 mg/dL 70-110 H TESTED AT [place] [address] ([facility]) (test code = [facility] 1538) [address] POCT-GLUCOSE [id number] 07:53:00 Test Item Value Reference Range Interpretation Comments POC-GLUCOSE METER 87 mg/dL 70-110 TESTED AT [place] [address] ([facility]) (test code = [facility] [address] 1538) POCT-GLUCOSE [id number] 06:49:00 Test Item Value Reference Range Interpretation Comments POC-GLUCOSE METER 79 mg/dL 70-110 TESTED AT [place] [address] ([facility]) (test code = [facility] [address] 1538) COMPREHENSIVE METABOLIC [id number] 06:15:00 Test Item Value Reference Range Interpretation [...] S NOT APPLICABLE FOR DIALYSIS PATIEN TS. [id number] 06:11:00 Test Item Value Reference Range Interpretation Comments MAGNESIUM (BEAKER) (test code = 2.1 mg/dL 1.6-2.6 627) HEPATIC FUNCTION [id number] 06:11:00 Test Item Value Reference Range Interpretation [...] code = 513 U/L 6-55 H 347) [id number] 05:30:00 Test Item Value Reference Range Interpretation Comments FIBRINOGEN LEVEL (BEAKER) (test 368 mg/dl 225-434 code = 658) [id number] 05:30:00 Test Item Value Reference Range Interpretation Comments PARTIAL THROMBOPLASTIN TIME 42.2 seconds 22.5-36.0 H (BEAKER) (test code = 760) PROTHROMBIN [id number] 05:29:00 Test Item Value Reference Range Interpretation Comments PROTIME (BEAKER) (test code = 14.8 seconds 11.7-14.7 H 759) [facility] (test code = 370) 1.2 <=5.9 RECOMMENDED COUMADIN/WARFARIN INR THERAPY RANGESSTANDARD DOSE: 2.0 - 3.0 Includes: PROPHYLAXIS for venous thrombosis, systemic embolization; TREATMENT for venous thrombosis and/or pulmonary embolus.HIGH RISK: Target INR is 2.5-3.5 for patients with mechanical heart valves.POCT-GLUCOSE [id number] 21:09:00 Test Item Value Reference Range Interpretation Comments POC-GLUCOSE METER 178 mg/dL 70-110 H TESTED AT [place] [address] ([facility]) (test code = [facility] 1538) [address] POCT-GLUCOSE [id number] 17:18:00 Test Item Value Reference Range Interpretation Comments POC-GLUCOSE METER 178 mg/dL 70-110 H TESTED AT [place] [address] ([facility]) (test code = [facility] 1538) [address] POCT-GLUCOSE [id number] 13:48:00 Test Item Value Reference Range Interpretation Comments POC-GLUCOSE METER 150 mg/dL 70-110 H TESTED AT [place] [address] ([facility]) (test code = [facility] 1538) [address] FACTOR 5 ACTIVITY (BLEEDING RISK)2017-01-06 10:04:00 Test Item Value Reference Range Interpretation Comments FACTOR V ACTIVITY (MADIE) (test code 90.0 % 60.0-150.0 = 665) Effective 10/24/2013: Reference Range Change-Adult onlyNew: 60.0-150.0 Previous: 50.0-150.0CYTOMEGALOVIRUS ANTIBODY, [id number] 09:42:00 Test Item Value Reference Range Interpretation Comments CYTOMEGALOVIRUS IGM ANTIBODY Negative (BEAKER) (test code = 816) HERPES VIRUS ANTIBODY, [id number] 08:59:00 Test Item Value Reference Range Interpretation Comments 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) (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 G 1807) CYTOMEGALOVIRUS ANTIBODY, [id number] 08:59:00 Test Item Value Reference Range Interpretation Comments CYTOMEGALOVIRUS IGG ANTIBODY Positive (BEAKER) (test code = 790) EBV-VCA ANTIBODY, [id number] 08:59:00 Test Item Value Reference Range Interpretation Comments JASE-WALL VCA IGG (BEAKER) (test Positive code = 983) EBV-VCA ANTIBODY, [id number] 08:59:00 Test Item Value Reference Range Interpretation Comments JASE-WALL VCA IGM (BEAKER) (test Negative code = 984) POCT-GLUCOSE [id number] 07:59:00 Test Item Value Reference Range Interpretation Comments POC-GLUCOSE METER 81 mg/dL 70-110 TESTED AT [facility] 67[address] ([facility]) (test code = [place] [facility] [address] 1538) COMPREHENSIVE METABOLIC [id number] 06:23:00 Test Item Value Reference Range Interpretation [...] S NOT APPLICABLE FOR DIALYSIS PATIEN TS. [id number] 06:17:00 Test Item Value Reference Range Interpretation Comments MAGNESIUM (BEAKER) (test code = 1.8 mg/dL 1.6-2.6 627) HEPATIC FUNCTION [id number] 06:17:00 Test Item Value Reference Range Interpretation [...] code = 779 U/L 6-55 H 347) [id number] 06:00:00 Test Item Value Reference Range Interpretation Comments FIBRINOGEN LEVEL (BEAKER) (test 390 mg/dl 225-434 code = 658) [id number] 06:00:00 Test Item Value Reference Range Interpretation Comments PARTIAL THROMBOPLASTIN TIME 40.2 seconds 22.5-36.0 H ([facility]) (test code = 760) PROTHROMBIN [id number] 05:59:00 Test Item Value Reference Range Interpretation Comments PROTIME ([facility]) (test code = 14.6 seconds 11.7-14.7 759) INR ([facility]) (test code = 370) 1.2 <=5.9 RECOMMENDED COUMADIN/WARFARIN INR THERAPY RANGESSTANDARD DOSE: 2.0 - 3.0 Includes: PROPHYLAXIS for venous thrombosis, systemic embolization; TREATMENT for venous thrombosis and/or pulmonary embolus.HIGH RISK: Target INR is 2.5-3.5 for patients with mechanical heart valves.POCT-GLUCOSE [id number] 21:46:00 Test Item Value Reference Range Interpretation Comments POC-GLUCOSE METER 153 mg/dL 70-110 H TESTED AT [place] [address] ([facility]) (test code = JULIADENZEL Denny [facility] 1538) [address] POCT-GLUCOSE [id number] 18:47:00 Test Item Value Reference Range Interpretation Comments POC-GLUCOSE METER 181 mg/dL 70-110 H TESTED AT [place] [address] ([facility]) (test code = JULIADENZEL Denny [facility] 1538) [address] POCT-GLUCOSE [id number] 12:40:00 Test Item Value Reference Range Interpretation Comments POC-GLUCOSE METER 178 mg/dL 70-110 H TESTED AT [place] [address] ([facility]) (test code = [place] [facility] 1538) [address] POCT-GLUCOSE [id number] 07:51:00 Test Item Value Reference Range Interpretation Comments POC-GLUCOSE METER 166 mg/dL 70-110 H TESTED AT [place] [address] ([facility]) (test code = [facility] [place] [facility] 1538) [address] COMPREHENSIVE METABOLIC [id number] 03:26:00 Test Item Value Reference Range Interpretation [...] S NOT APPLICABLE FOR DIALYSIS PATIEN TS. [id number] 03:22:00 Test Item Value Reference Range Interpretation Comments MAGNESIUM (BEAKER) (test code = 1.4 mg/dL 1.6-2.6 L 627) HEPATIC FUNCTION [id number] 03:22:00 Test Item Value Reference Range Interpretation [...] code = 1009 U/L 6-55 H 347) [id number] 03:12:00 Test Item Value Reference Range Interpretation Comments AMMONIA (BEAKER) (test code = 348) 29 mol/L 18-72 [id number] 03:10:00 Test Item Value Reference Range Interpretation Comments PARTIAL THROMBOPLASTIN TIME 42.3 seconds 22.5-36.0 H (BEAKER) (test code = 760) PROTHROMBIN [id number] 03:09:00 Test Item Value Reference Range Interpretation Comments PROTIME (BEAKER) (test code = 16.4 seconds 11.7-14.7 H 759) INR (BEAKER) (test code = 370) 1.3 <=5.9 RECOMMENDED COUMADIN/WARFARIN INR THERAPY RANGESSTANDARD DOSE: 2.0 - 3.0 Includes: PROPHYLAXIS for venous thrombosis, systemic embolization; TREATMENT for venous thrombosis and/or pulmonary embolus.HIGH RISK: Target INR is 2.5-3.5 for patients with mechanical heart valves.[id number] 03:09:00 Test Item Value Reference Range Interpretation Comments FIBRINOGEN LEVEL (BEAKER) (test 413 mg/dl 225-434 code = 658) CBC W/PLT COUNT & AUTO [id number] 03:09:00 Test Item Value Reference Range Interpretation [...] L 0.00-0.20 (test code = 417) 0.00POCT-GLUCOSE [id number] 22:33:00 Test Item Value Reference Range Interpretation Comments POC-GLUCOSE METER 230 mg/dL 70-110 H TESTED AT [place] [address] ([facility]) (test code = [facility] 1538) [address] POCT-GLUCOSE [id number] 18:17:00 Test Item Value Reference Range Interpretation Comments POC-GLUCOSE METER 222 mg/dL 70-110 H TESTED AT [place] [id number] ([facility]) (test code = [facility] 1538) [address] COMPREHENSIVE METABOLIC [id number] 16:59:00 Test Item Value Reference Range Interpretation [...] PATIEN TS. PERIPHERAL BLOOD SMEAR - PATHOLOGIST [id number] 15:30:00 Test Item Value Reference Range Interpretation Comments RBC MORPHOLOGY Polychromasia (BEAKER) (test code = 2846) RBC MORPHOLOGY Anisocytosis (BEAKER) (test code = 34589) PERIPHERAL SMR REVIEW Cell counts confirmed (BEAKER) (test code = 6670) [id number] Josefina Lara M.D. (BEAKER) (test code = (electronic signature) 0124) PROTHROMBIN [id number] 15:12:00 Test Item Value Reference Range Interpretation [...] Reference Range Interpretation Comments ANTI-NUCLEAR ANTIBODY (IVETTE) ([employer]) Negative Negative (test code = 418) POCT-GLUCOSE [id number] 12:47:00 Test Item Value Reference Range Interpretation Comments POC-GLUCOSE METER 212 mg/dL 70-110 H TESTED AT [facility] 6720 ([employer]) (test code = [place] 1538) [address] [id number] 12:34:00 Test Item Value Reference Range Interpretation Comments RPR SCREEN ([employer]) (test code = Nonreactive Nonreactive 420) CLOSTRIDIUM DIFFICILE TOXIN [id number] 10:12:00 Test Item Value Reference Range Interpretation Comments CLOSTRIDIUM DIFFICILE TOXIN, PCR Not Detected Not Detected ([employer]) (test code = 1525) This qualitative real-time [...] Reference Range Interpretation Comments FACTOR V ACTIVITY ([employer]) (test code 86.0 % 60.0-150.0 = 665) Effective 10/24/2013: Reference Range Change-Adult onlyNew: 60.0-150.0 Previous: 50.0-150.0FACTOR 5 ACTIVITY (BLEEDING RISK)2017-01-04 09:13:00 Test Item Value Reference Range Interpretation Comments FACTOR V ACTIVITY (BEAKER) (test code 56.0 % 60.0-150.0 L = 665) Effective 10/24/2013: Reference Range Change-Adult onlyNew: 60.0-150.0 Previous: 50.0-150.0POCT-GLUCOSE [id number] 06:40:00 Test Item Value Reference Range Interpretation Comments POC-GLUCOSE METER 167 mg/dL 70-110 H TESTED AT [facility] 6720 (BEAKER) (test code = [place] 1538) [address] COMPREHENSIVE METABOLIC [id number] 04:08:00 Test Item Value Reference Range Interpretation [...] ESTIM ATED GFR. Specimen slightly ictericHEPATIC FUNCTION [id number] 04:06:00 Test Item Value Reference Range Interpretation [...] 1091 U/L 6-55 H 347) Specimen slightly [id number] 04:01:00 Test Item Value Reference Range Interpretation Comments FIBRINOGEN LEVEL (BEAKER) (test 379 mg/dl 225-434 code = 658) [id number] 04:01:00 Test Item Value Reference Range Interpretation Comments PARTIAL THROMBOPLASTIN TIME 40.7 seconds 22.5-36.0 H (BEAKER) (test code = 760) PROTHROMBIN [id number] 04:00:00 Test Item Value Reference Range Interpretation [...] mechanical heart valves.CBC W/PLT COUNT & AUTO [id number] 03:56:00 Test Item Value Reference Range Interpretation [...] L 0.00-0.20 (test code = 417) 0.00POCT-GLUCOSE [id number] 00:19:00 Test Item Value Reference Range Interpretation Comments POC-GLUCOSE METER 159 mg/dL 70-110 H TESTED AT [facility] 6720 (BEAKER) (test code = [place] 1538) [address] POCT-GLUCOSE [id number] 18:56:00 Test Item Value Reference Range Interpretation Comments POC-GLUCOSE METER 192 mg/dL 70-110 H TESTED AT [facility] 6720 (BEAKER) (test code = [place] 1538) [address] COMPREHENSIVE METABOLIC [id number] 16:55:00 Test Item Value Reference Range Interpretation [...] CALCULATE ESTIM ATED GFR. Specimen slightly ictericPROTHROMBIN [id number] 16:37:00 Test Item Value Reference Range Interpretation Comments PROTIME (BEAKER) (test code = 20.9 seconds 11.7-14.7 H 759) INR (BEAKER) (test code = 370) 1.8 <=5.9 RECOMMENDED COUMADIN/WARFARIN INR THERAPY RANGESSTANDARD DOSE: 2.0 - 3.0 Includes: PROPHYLAXIS for venous thrombosis, systemic embolization; TREATMENT for venous thrombosis and/or pulmonary embolus.HIGH RISK: Target INR is 2.5-3.5 for patients with mechanical heart valves.HEPATITIS B SURFACE [id number] 14:05:00 Test Item Value Reference Range Interpretation Comments HEPATITIS B SURFACE ANTIBODY < mIU/mL <8.0 (BEAKER) (test code = 647) HEPATITIS B CORE ANTIBODY, [id number] 13:43:00 Test Item Value Reference Range Interpretation Comments HEPATITIS B CORE TOTAL ANTIBODY Nonreactive Nonreactive (BEAKER) (test code = 497) BLOOD GAS, [id number] 13:35:00 Test Item Value Reference Range Interpretation [...] code = 1819) 28.0 % URINALYSIS W/ [id number] 13:16:00 Test Item Value Reference Range Interpretation [...] 1584) SOURCE(BEAKER) (test code = Urine, [place] 4805) VITAMIN D, 35-[id number] 13:14:00 Test Item Value Reference Range Interpretation Comments VITAMIN D 25-OH (BEAKER) (test code = < ng/mL 13.0-47.8 L 2764) ALPHA FETOPROTEIN (AFP), TUMOR [id number] 13:06:00 Test Item Value Reference Range Interpretation Comments ALPHA-FETOPROTEIN (BEAKER) (test code < ng/mL <10.0 = 1094) Effective 05/08/2014: Reference Range ChangeNew: <10.0 Previous: 0.0-8.0 HEMOGLOBIN [id number] 13:05:00 Test Item Value Reference Range Interpretation Comments HEMOGLOBIN A1C (BEAKER) (test code = 7.6 % 4.3-6.1 H 368) CARCINOEMBRYONIC ANTIGEN (CEA)2017-01-03 12:59:00 Test Item Value Reference Range Interpretation Comments CARCINOEMBRYONIC ANTIGEN (BEAKER) 2.0 ng/mL 0.0-5.0 (test code = 685) [id number] 12:59:00 Test Item Value Reference Range Interpretation Comments FERRITIN (BEAKER) (test code = 1841 ng/mL 5-275 H 361) Effective 05/08/2014: Reference Range ChangeNew: Male 5-275 Previous: Male 22- 322 Female 5-275 Female [id number] 12:58:00 Test Item Value Reference Range Interpretation Comments T4 TOTAL (BEAKER) (test code = 895) 4.5 ug/dL 4.9-11.7 L [id number] 12:58:00 Test Item Value Reference Range Interpretation Comments THYROID STIMULATING HORMONE 1.79 uIU/mL 0.35-4.94 (BEAKER) (test code = 772) [id number] 12:58:00 Test Item Value Reference Range Interpretation Comments T3 TOTAL (BEAKER) (test code = 656) 34 ng/dL 48-159 L Effective 05/08/2014: Reference Range ChangeNew: 48-159 Previous: 60-181CALCIUM, [id number] 12:47:00 Test Item Value Reference Range Interpretation Comments CALCIUM IONIZED (BEAKER) (test 1.05 mmol/L 1.12-1.27 L code = 698) PH, BLOOD (BEAKER) (test code = 7.43 1810) [id number] 12:42:00 Test Item Value Reference Range Interpretation [...] % 20-55 (test code = 2590) URIC [id number] 12:40:00 Test Item Value Reference Range Interpretation Comments URIC ACID (BEAKER) (test code = 16.0 mg/dL 2.6-7.2 H 773) Specimen slightly ictericLIPID [id number] 12:40:00 Test Item Value Reference Range Interpretation [...] 160-189 Very High >=190 Specimen slightly ictericBILIRUBIN, [id number] 12:40:00 Test Item Value Reference Range Interpretation Comments BILIRUBIN DIRECT (MADIE) (test 2.4 mg/dL 0.1-0.5 H code = 706) GAMMA GLUTAMYL TRANSFERASE (GGT)2017-01-03 12:40:00 Test Item Value Reference Range Interpretation Comments GAMMA GLUTAMYL TRANSFERASE (MADIE) 53 U/L 9-64 (test code = 364) Specimen slightly [id number] 12:39:00 Test Item Value Reference Range Interpretation Comments ETHANOL (MADIE) (test code = 400) < mg/dL <=10 SCREEN, [id number] 12:36:00 Test Item Value Reference Range Interpretation Comments TEST URINE (MADIE) (test Negative code = 583) POCT-GLUCOSE [id number] 12:34:00 Test Item Value Reference Range Interpretation Comments POC-GLUCOSE METER 189 mg/dL 70-110 H TESTED AT [facility] 6720 (MADIE) (test code = [place] 1538) [address] HIV-1 ANTIGEN WITH HIV-1/2 [id number] 11:58:00 Test Item Value Reference Range Interpretation Comments HIV-1 ANTIGEN WITH HIV 1\\T\\2 Nonreactive Nonreactive ANTIBODY (2) (CHANDNIGoToTags) (test code = 2586) TROPONIN [id number] 09:44:00 Test Item Value Reference Range Interpretation [...] 0.0-4.9CK-MB Reference Range:<6.7 Normal6.7-10.0 Borderline>10.0 Abnormal ACETAMINOPHEN [id number] 08:31:00 Test Item Value Reference Range Interpretation Comments ACETAMINOPHEN LEVEL (BEAKER) (test < ug/mL 10.0-30.0 L code = 344) TROPONIN [id number] 05:53:00 Test Item Value Reference Range Interpretation [...] acute neurological disease, and persistent tachyarrhythmia.BASIC METABOLIC [id number] 05:53:00 Test Item Value Reference Range Interpretation [...] TO CALCULA TE ESTIMATED GFR. Specimen slightly srmwgboCZAIMWNNHK4245-45-68 05:52:00 Test Item Value Reference Range Interpretation Comments PHOSPHORUS (BEAKER) (test code = 5.7 mg/dL 2.3-4.7 H 604) HEPATIC FUNCTION [id number] 05:52:00 Test Item Value Reference Range Interpretation [...] Specimen slightly ictericCREATINE KINASE (CK), TOTAL AND [id number] 05:52:00 Test Item Value Reference Range Interpretation Comments CREATINE KINASE TOTAL (BEAKER) 341 U/L 29-200 H (test code = 380) CREATINE KINASE-MB (BEAKER) (test 5.4 ng/mL 0.0-6.6 code = 750) CREATINE KINASE-MB INDEX (BEAKER) 1.6 % (test code = 395) Effective 05/08/2014: CK-MB Reference Range ChangeNew: 0.0-6.6 Previous: 0.0-4.9CK-MB Reference Range:<6.7 Normal6.7-10.0 Borderline>10.0 Abnormal CBC W/PLT COUNT & AUTO [id number] 05:48:00 Test Item Value Reference Range Interpretation [...] K/ L 0.00-0.20 (test code = 417) 0.86SGBCZYXXRH3592-61-43 05:09:00 Test Item Value Reference Range Interpretation Comments FIBRINOGEN LEVEL (BEAKER) (test 427 mg/dl 225-434 code = 658) [id number] 05:09:00 Test Item Value Reference Range Interpretation Comments PARTIAL THROMBOPLASTIN TIME 36.2 seconds 22.5-36.0 H (BEAKER) (test code = 760) PROTHROMBIN TIME/[id number] 05:08:00 Test Item Value Reference Range Interpretation Comments PROTIME (BEAKER) (test code = 22.8 seconds 11.7-14.7 H 759) INR (BEAKER) (test code = 370) 2.0 <=5.9 RECOMMENDED COUMADIN/WARFARIN INR THERAPY RANGESSTANDARD DOSE: 2.0 - 3.0 Includes: PROPHYLAXIS for venous thrombosis, systemic embolization; TREATMENT for venous thrombosis and/or pulmonary embolus.HIGH RISK: Target INR is 2.5-3.5 for patients with mechanical heart valves.HEPATITIS PANEL, [id number] 03:40:00 Test Item Value Reference Range Interpretation Comments HEPATITIS A IGM ANTIBODY (BEAKER) Nonreactive Nonreactive (test code = 498) HEPATITIS B CORE IGM ANTIBODY Nonreactive Nonreactive (BEAKER) (test code = 645) HEPATITIS C ANTIBODY (BEAKER) Nonreactive Nonreactive (test code = 367) HEPATITIS B SURFACE ANTIGEN (2) Nonreactive Nonreactive (BEAKER) (test code = 2585) CREATININE, RANDOM [id number] 03:18:00 Test Item Value Reference Range Interpretation Comments CREATININE URINE (BEAKER) (test 118.7 mg/dL code = 375) Reference Range: No NormalsSODIUM, RANDOM [id number] 03:18:00 Test Item Value Reference Range Interpretation Comments SODIUM URINE (BEAKER) (test code = 60 meq/L 243) Reference Range: No NormalsUREA NITROGEN, RANDOM [id number] 03:18:00 Test Item Value Reference Range Interpretation Comments UREA NITROGEN URINE (BEAKER) (test 303 mg/dL code = 538) Reference Range: No [id number] 03:07:00 Test Item Value Reference Range Interpretation Comments AMMONIA (BEAKER) (test code = 348) 48 mol/L 18-72 C-[id number] 02:57:00 Test Item Value Reference Range Interpretation [...] within 95-100% range. URINALYSIS W/ REFLEX URINE [id number] 02:53:00 Test Item Value Reference Range Interpretation [...] /LPF = 514) SOURCE(BEAKER) (test code = 1375) [id number] 02:49:00 Test Item Value Reference Range Interpretation Comments PARTIAL THROMBOPLASTIN TIME 39.4 seconds 22.5-36.0 H (BEAKER) (test code = 760) PROTHROMBIN TIME/[id number] 02:48:00 Test Item Value Reference Range Interpretation Comments PROTIME (BEAKER) (test code = 22.0 seconds 11.7-14.7 H 759) INR (BEAKER) (test code = 370) 1.9 <=5.9 RECOMMENDED COUMADIN/WARFARIN INR THERAPY RANGESSTANDARD DOSE: 2.0 - 3.0 Includes: PROPHYLAXIS for venous thrombosis, systemic embolization; TREATMENT for venous thrombosis and/or pulmonary embolus.HIGH RISK: Target INR is 2.5-3.5 for patients with mechanical heart valves.[id number] 02:48:00 Test Item Value Reference Range Interpretation Comments FIBRINOGEN LEVEL (BEAKER) (test 421 mg/dl 225-434 code = 658) BLOOD GAS, [id number] 02:43:00 Test Item Value Reference Range Interpretation [...] 21.0 % CBC W/PLT COUNT & AUTO [id number] 02:43:00 Test Item Value Reference Range Interpretation [...] code = 417) 0.00LACTIC ACID, VENOUS, WHOLE [id number] 02:35:00 Test Item Value Reference Range Interpretation Comments LACTATE BLOOD VENOUS (2) (BEAKER) 0.8 mmol/L 0.5-2.2 (test code = 2872) Effective 10/23/2015: Units/Reference Range ChangeNew: 0.5-2.2 mmol/L Previous: 5- 20 mg/dLSpecimen slightly [id number] 11:32:00 Test Item Value Reference Range Interpretation Comments AGAP (test code = AGAP) 14.6 10.0-20.0 [facility] HospitalDjdvsbkGKEZIULVPVRE9261-90-34 11:32:00 Test Item Value Reference Range Interpretation Comments eGFR (test code = eGFR) 33 [facility] HospitalGqbrmgcYBIXSZBFFYPT4676-93-08 11:32:00 Test Item Value Reference Range Interpretation Comments Calcium Lvl (test code = Calcium Lvl) 8.3 8.5-10.5 [facility] HospitalNimrhxgOLETRZMBXMET7629-71-01 11:32:00 Test Item Value Reference Range Interpretation Comments Glucose Lvl (test code = Glucose Lvl) 81 70-99 [facility] HospitalDbfypawWQMBZLFURGIZ5411-27-25 11:32:00 Test Item Value Reference Range Interpretation Comments Creatinine Lvl (test code = Creatinine 1.95 0.50-1.40 Lvl) [facility] HospitalIqopqvgFVCAVQXWIDED2868-69-97 11:32:00 Test Item Value Reference Range Interpretation Comments BUN (test code = BUN) 55 7-22 [facility] HospitalIviwnbpSHQDBYCBSNCD7726-52-04 11:32:00 Test Item Value Reference Range Interpretation Comments CO2 (test code = CO2) 19 24-32 [facility] HospitalVjumqmuIUBKVYASFRFV4245-06-96 11:32:00 Test Item Value Reference Range Interpretation Comments Chloride Lvl (test code = Chloride Lvl) 110 95-109 [facility] HospitalOlmxuadJHAEJOPVAXGQ4953-60-93 11:32:00 Test Item Value Reference Range Interpretation Comments Sodium Lvl (test code = Sodium Lvl) 139 135-145 [facility] HospitalGjmkgloTKXWOIIRXBVM9316-30-42 11:32:00 Test Item Value Reference Range Interpretation Comments Potassium Lvl (test code = Potassium 4.6 3.5-5.1 Lvl) [facility]QljiejcGYGDVNEHAC4216-[facility] 11:32:00 Test Item Value Reference Range Interpretation Comments Lymphocytes (test code = Lymphocytes) 30.4 20.0-40.0 [facility] CenterVcwjudmTTPLKVLUSN9987-48-42 11:32:00 Test Item Value Reference Range Interpretation Comments Eosinophils (test code = 4.5 See_Comment [A utomated message] The Eosinophils) system which ge nerated this result tra nsmitted reference range : <=4.0. The reference r leo was not used to int erpret this result as normal/abnormal . [facility] CenterEibkjlbMNLFTOHAEK8368-27-17 11:32:00 Test Item Value Reference Range Interpretation Comments Monocytes (test code = Monocytes) 13.7 2.0-12.0 [facility] CenterNwcigcgFNEUSWJHWM0632-12-72 11:32:00 Test Item Value Reference Range Interpretation Comments Segs-Bands # (test code = Segs-Bands #) 2.6 1.5-8.1 [facility] CenterUnfmbkiOXSZAUZGYW7634-79-69 11:32:00 Test Item Value Reference Range Interpretation Comments Basophils (test code = 0.7 See_Comment [Aut omated message] The Basophils) system which ge nerated this result tra nsmitted reference range : <=1.0. The reference r leo was not used to int erpret this result as normal/abnormal . [facility] CenterTmuptkdOKHNKYHKUS7851-74-67 11:32:00 Test Item Value Reference Range Interpretation Comments Monocytes # (test code 0.7 See_Comment [Aut omated message] The = Monocytes #) system which generated this result tra nsmitted reference range : <=0.8. The reference r leo was not used to int erpret this result as normal/abnormal . [facility] CenterZlbmxvnWWTATNDVVF2658-12-51 11:32:00 Test Item Value Reference Range Interpretation Comments Lymphocytes # (test code = Lymphocytes 1.6 1.0-5.5 #) [facility] CenterJmxkewfFQIJJFRAXN4511-43-09 11:32:00 Test Item Value Reference Range Interpretation Comments Eosinophils # (test code 0.2 See_Comment [A utomated message] The = Eosinophils #) system whic h generated this result tra nsmitted reference range : <=0.5. The reference r leo was not used to int erpret this result as normal/abnormal . [facility] CenterGyfqpsjYRZGBMCEWN1490-06-37 11:32:00 Test Item Value Reference Range Interpretation Comments Segs (test code = Segs) 50.7 45.0-75.0 [facility] CenterXavkyxoDBNGIKFGLH2570-55-28 11:32:00 Test Item Value Reference Range Interpretation [...] iron deficiency anemia, and renal disease. CPT: 34881 [facility] CenterXwqogaaMMHCMUTXDA3836-48-84 11:32:00 Test Item Value Reference Range Interpretation Comments Hct (test code = Hct) 28.1 36.0-48.0 [facility] CenterRhkrutrNTHRHJDCWX1803-39-65 11:32:00 Test Item Value Reference Range Interpretation Comments RBC (test code = RBC) 3.39 4.20-5.40 [facility] CenterEahcgjoFNFJZLYLZK7124-57-50 11:32:00 Test Item Value Reference Range Interpretation Comments Hgb (test code = Hgb) 8.9 12.0-16.0 [facility] CenterTdeyugzNOKEJSZJUW1712-98-70 11:32:00 Test Item Value Reference Range Interpretation Comments WBC (test code = WBC) 5.1 3.7-10.4 [facility] CenterPndncwwWBMGQRNNBY3870-73-48 11:32:00 Test Item Value Reference Range Interpretation Comments MPV (test code = MPV) 11.3 7.4-10.4 [facility] CenterWsnqfaeCMRHYJIHAH8829-49-64 11:32:00 Test Item Value Reference Range Interpretation Comments Platelet (test code = Platelet) 118 133-450 [facility] CenterNewoftlYNSWZGCCSM0717-65-80 11:32:00 Test Item Value Reference Range Interpretation Comments MCHC (test code = MCHC) 31.8 32.0-36.0 [facility] CenterNddunhaITTKDWJXAY2794-17-83 11:32:00 Test Item Value Reference Range Interpretation Comments RDW (test code = RDW) 18.0 11.5-14.5 [facility] CenterDzlydnaSVSTEWSPJD2742-14-50 11:32:00 Test Item Value Reference Range Interpretation Comments MCV (test code = MCV) 83.0 80.0-98.0 [facility] CenterLiweqdlQRLYXEFQUA5650-09-91 11:32:00 Test Item Value Reference Range Interpretation Comments MCH (test code = MCH) 26.4 pg 27.0-31.0 [facility] HospitalDmkvnpxDJVLCAPXMU4676-34-43 11:32:00 Test Item Value Reference Range Interpretation Comments C3 Complement (test code = C3 137 88-201 Complement) [facility] HospitalRsromniJIXBEZQNPZ3245-04-86 11:32:00 Test Item Value Reference Range Interpretation Comments HIV. (test code = Negative *NA*(07/30/16 HIV.) 5:32 AM) [facility] HospitalVhxcrygSOSWBERLACUK7344-60-44 11:32:00 Test Item Value Reference Range Interpretation Comments AGAP (test code = AGAP) 14.6 10.0-20.0 [facility] HospitalJiivjddGSSSARIAZWJZ3900-08-45 11:32:00 Test Item Value Reference Range Interpretation Comments eGFR (test code = eGFR) 33 [facility] HospitalSpfwghpVJTHSPAJOAEP3584-65-20 11:32:00 Test Item Value Reference Range Interpretation Comments Calcium Lvl (test code = Calcium Lvl) 8.3 8.5-10.5 [facility] HospitalJgifqijUKSICTAVVCMO5101-03-57 11:32:00 Test Item Value Reference Range Interpretation Comments Glucose Lvl (test code = Glucose Lvl) 81 70-99 [facility] HospitalOxuavhbYUOWEADBBLNO3964-69-52 11:32:00 Test Item Value Reference Range Interpretation Comments Creatinine Lvl (test code = Creatinine 1.95 0.50-1.40 Lvl) [facility] HospitalTcalnwmLNIGTTEWFLXD1106-92-67 11:32:00 Test Item Value Reference Range Interpretation Comments BUN (test code = BUN) 55 7-22 [facility] HospitalIrpgqwgKMHKCKBEKCIF3976-88-32 11:32:00 Test Item Value Reference Range Interpretation Comments CO2 (test code = CO2) 19 24-32 [facility] HospitalEmplcvrENGPCMQVAZUG9946-99-41 11:32:00 Test Item Value Reference Range Interpretation Comments Chloride Lvl (test code = Chloride Lvl) 110 95-109 [facility] HospitalCqjiwvhTHMLJJLHJPLT1995-19-19 11:32:00 Test Item Value Reference Range Interpretation Comments Sodium Lvl (test code = Sodium Lvl) 139 135-145 [facility] HospitalQozyoggWOTOHIUOJGLK6196-55-65 11:32:00 Test Item Value Reference Range Interpretation Comments Potassium Lvl (test code = Potassium 4.6 3.5-5.1 Lvl) [facility] CenterYbwprdlMQJKCOLKGV0958-70-11 11:32:00 Test Item Value Reference Range Interpretation Comments Lymphocytes (test code = Lymphocytes) 30.4 20.0-40.0 [facility] CenterZkiqvopQPYPPYBIRN4272-06-78 11:32:00 Test Item Value Reference Range Interpretation Comments Eosinophils (test code = 4.5 See_Comment [A utomated message] The Eosinophils) system which ge nerated this result tra nsmitted reference range : <=4.0. The reference r leo was not used to int erpret this result as normal/abnormal . [facility] CenterDjuwscrAOALUJVOCW9211-57-01 11:32:00 Test Item Value Reference Range Interpretation Comments Monocytes (test code = Monocytes) 13.7 2.0-12.0 [facility] CenterUhmpttxIHZMNFSKHJ0742-74-51 11:32:00 Test Item Value Reference Range Interpretation Comments Segs-Bands # (test code = Segs-Bands #) 2.6 1.5-8.1 [facility] CenterDdhjzgiLAZKYDNJDM8738-48-98 11:32:00 Test Item Value Reference Range Interpretation Comments Basophils (test code = 0.7 See_Comment [Aut omated message] The Basophils) system which ge nerated this result tra nsmitted reference range : <=1.0. The reference r leo was not used to int erpret this result as normal/abnormal . [facility] CenterPvqufwxUUPZBJUIPV9821-49-11 11:32:00 Test Item Value Reference Range Interpretation Comments Monocytes # (test code 0.7 See_Comment [Aut omated message] The = Monocytes #) system which generated this result tra nsmitted reference range : <=0.8. The reference r leo was not used to int erpret this result as normal/abnormal . [facility] CenterRtnerkpEZGFWMIBVX5722-23-23 11:32:00 Test Item Value Reference Range Interpretation Comments Lymphocytes # (test code = Lymphocytes 1.6 1.0-5.5 #) [facility] CenterYmomnmpPODGCFEUBL0625-19-43 11:32:00 Test Item Value Reference Range Interpretation Comments Eosinophils # (test code 0.2 See_Comment [A utomated message] The = Eosinophils #) system [facility] generated this result tra nsmitted reference range : <=0.5. The reference r leo was not used to int erpret this result as normal/abnormal . [facility] CenterBnkpiblUKIZIWXQGG5295-10-52 11:32:00 Test Item Value Reference Range Interpretation Comments Segs (test code = Segs) 50.7 45.0-75.0 [facility] CenterXtjbuhlWBGCJPNIOE4893-05-39 11:32:00 Test Item Value Reference Range Interpretation [...] iron deficiency anemia, and renal disease. CPT: 65616 [facility] CenterLzcwgknSEYDYDNMSF1479-17-21 11:32:00 Test Item Value Reference Range Interpretation Comments Hct (test code = Hct) 28.1 36.0-48.0 [facility] CenterXpvvlbvCRKGJPXHIH5839-08-36 11:32:00 Test Item Value Reference Range Interpretation Comments RBC (test code = RBC) 3.39 4.20-5.40 [facility] CenterRkqbkclJRNAFVWOCC3390-85-35 11:32:00 Test Item Value Reference Range Interpretation Comments Hgb (test code = Hgb) 8.9 12.0-16.0 [facility] CenterRgtglnkEVTDGFOJVK3125-98-79 11:32:00 Test Item Value Reference Range Interpretation Comments WBC (test code = WBC) 5.1 3.7-10.4 [facility] CenterGsypjlyKHKISOJZVR8545-99-96 11:32:00 Test Item Value Reference Range Interpretation Comments MPV (test code = MPV) 11.3 7.4-10.4 [facility] CenterFgvcahkNUTGIRIQVC5360-49-61 11:32:00 Test Item Value Reference Range Interpretation Comments Platelet (test code = Platelet) 118 133-450 [facility] CenterGpugypyNLMHWIINUR6054-64-99 11:32:00 Test Item Value Reference Range Interpretation Comments MCHC (test code = MCHC) 31.8 32.0-36.0 [facility] CenterFqwovkgPBZLXZNBAZ4631-75-02 11:32:00 Test Item Value Reference Range Interpretation Comments RDW (test code = RDW) 18.0 11.5-14.5 [facility] CenterOuyglhoOYASSQQHWX0649-49-29 11:32:00 Test Item Value Reference Range Interpretation Comments MCV (test code = MCV) 83.0 80.0-98.0 [facility] CenterFgwlquaJMALNYOTSX1079-97-55 11:32:00 Test Item Value Reference Range Interpretation Comments MCH (test code = MCH) 26.4 pg 27.0-31.0 [facility] CenterOhklurtXPTWWSKKNF9128-08-01 11:32:00 Test Item Value Reference Range Interpretation Comments C3 Complement (test code = C3 137 88-201 Complement) [facility] CenterMwpyucqMZMLZVYBGB1596-14-60 11:32:00 Test Item Value Reference Range Interpretation Comments HIV. (test code = Negative *NA*(07/30/16 HIV.) 5:32 AM) [facility] HospitalOipfcodSCMVRORTJXWJ2304-19-99 11:32:00 Test Item Value Reference Range Interpretation Comments AGAP (test code = AGAP) 14.6 10.0-20.0 [facility] HospitalQhvuurmRRBGTATPCJBS2342-81-30 11:32:00 Test Item Value Reference Range Interpretation Comments eGFR (test code = eGFR) 33 [facility] HospitalBubiaovPVDZPDEEFVRU2524-49-75 11:32:00 Test Item Value Reference Range Interpretation Comments Calcium Lvl (test code = Calcium Lvl) 8.3 8.5-10.5 [facility] HospitalNjprikaKJHGSIKIGWST5335-14-19 11:32:00 Test Item Value Reference Range Interpretation Comments Glucose Lvl (test code = Glucose Lvl) 81 70-99 [facility] HospitalOhmdrcfXELNOUOHHHNH4496-94-44 11:32:00 Test Item Value Reference Range Interpretation Comments Creatinine Lvl (test code = Creatinine 1.95 0.50-1.40 Lvl) [facility] HospitalBddprqhIDWAWOMPYPOS1766-20-58 11:32:00 Test Item Value Reference Range Interpretation Comments BUN (test code = BUN) 55 7-22 [facility] HospitalWpryyrhPVKKCKSTAMYH5729-74-29 11:32:00 Test Item Value Reference Range Interpretation Comments CO2 (test code = CO2) 19 24-32 [facility] HospitalHlwlgzbUWOXMHCJCDDT7057-43-64 11:32:00 Test Item Value Reference Range Interpretation Comments Chloride Lvl (test code = Chloride Lvl) 110 95-109 [facility] HospitalTgbnsefBOKTMDVWJOWJ1601-11-29 11:32:00 Test Item Value Reference Range Interpretation Comments Sodium Lvl (test code = Sodium Lvl) 139 135-145 [facility] HospitalYtcjakqWLIGRTAZRIUO8852-62-08 11:32:00 Test Item Value Reference Range Interpretation Comments Potassium Lvl (test code = Potassium 4.6 3.5-5.1 Lvl) [facility] CenterBkbncvjOMYILXCILH8171-74-31 11:32:00 Test Item Value Reference Range Interpretation Comments Lymphocytes (test code = Lymphocytes) 30.4 20.0-40.0 [facility] CenterOoaayrwWHVOFFRVVM8429-87-08 11:32:00 Test Item Value Reference Range Interpretation Comments Eosinophils (test code = 4.5 See_Comment [A utomated message] The Eosinophils) system which ge nerated this result tra nsmitted reference range : <=4.0. The reference r leo was not used to int erpret this result as normal/abnormal . [facility] CenterAwcryevFCUUFBJIIP5839-68-51 11:32:00 Test Item Value Reference Range Interpretation Comments Monocytes (test code = Monocytes) 13.7 2.0-12.0 [facility] CenterNhwoivjIPYQUVHHUZ9352-21-86 11:32:00 Test Item Value Reference Range Interpretation Comments Segs-Bands # (test code = Segs-Bands #) 2.6 1.5-8.1 [facility] CenterBnjpzjcCPKCHNZUPE6916-42-03 11:32:00 Test Item Value Reference Range Interpretation Comments Basophils (test code = 0.7 See_Comment [Aut omated message] The Basophils) system which ge nerated this result tra nsmitted reference range : <=1.0. The reference r leo was not used to int erpret this result as normal/abnormal . [facility] CenterHkgvaxcSNUXDUDKQW7350-58-71 11:32:00 Test Item Value Reference Range Interpretation Comments Monocytes # (test code 0.7 See_Comment [Aut omated message] The = Monocytes #) system which generated this result tra nsmitted reference range : <=0.8. The reference r leo was not used to int erpret this result as normal/abnormal . [facility] CenterPmpgzayGZPNRRTYLC9607-50-40 11:32:00 Test Item Value Reference Range Interpretation Comments Lymphocytes # (test code = Lymphocytes 1.6 1.0-5.5 #) [facility] CenterKzetvwyDXOVSBNVWO8649-09-17 11:32:00 Test Item Value Reference Range Interpretation Comments Eosinophils # (test code 0.2 See_Comment [A utomated message] The = Eosinophils #) system whic h generated this result tra nsmitted reference range : <=0.5. The reference r leo was not used to int erpret this result as normal/abnormal . [facility] CenterFgnlyvkDTCMTLHPCG6644-11-13 11:32:00 Test Item Value Reference Range Interpretation Comments Segs (test code = Segs) 50.7 45.0-75.0 [facility] CenterUvushghSRPGZMBMTF0592-27-62 11:32:00 Test Item Value Reference Range Interpretation [...] iron deficiency anemia, and renal disease. CPT: 27041 [facility] CenterIozjlxyEHOQCPUBNI5181-07-28 11:32:00 Test Item Value Reference Range Interpretation Comments Hct (test code = Hct) 28.1 36.0-48.0 [facility] CenterTywoxlqGQSHZQLSRQ0857-61-19 11:32:00 Test Item Value Reference Range Interpretation Comments RBC (test code = RBC) 3.39 4.20-5.40 [facility] CenterEujwzvvZSJIPGVUSS9586-01-04 11:32:00 Test Item Value Reference Range Interpretation Comments Hgb (test code = Hgb) 8.9 12.0-16.0 [facility] CenterZzxjwmgGGUIHPLAZH9238-46-46 11:32:00 Test Item Value Reference Range Interpretation Comments WBC (test code = WBC) 5.1 3.7-10.4 [facility] CenterRpuhyyrQGJAWYWVBP4084-34-26 11:32:00 Test Item Value Reference Range Interpretation Comments MPV (test code = MPV) 11.3 7.4-10.4 [facility] CenterIqdsudlLVCDJPOFCJ5657-01-87 11:32:00 Test Item Value Reference Range Interpretation Comments Platelet (test code = Platelet) 118 133-450 [facility] CenterVxmneksWDFZCCEBEX1463-93-39 11:32:00 Test Item Value Reference Range Interpretation Comments MCHC (test code = MCHC) 31.8 32.0-36.0 [facility] CenterZmazvllLTJPTCDUQS8056-33-77 11:32:00 Test Item Value Reference Range Interpretation Comments RDW (test code = RDW) 18.0 11.5-14.5 [facility] CenterOwgfomlKNPKVSMBRE9110-86-52 11:32:00 Test Item Value Reference Range Interpretation Comments MCV (test code = MCV) 83.0 80.0-98.0 [facility] CenterKzayyzaRMRRLMCNPU0874-63-58 11:32:00 Test Item Value Reference Range Interpretation Comments MCH (test code = MCH) 26.4 pg 27.0-31.0 [facility] HospitalOariqyhRQAAQHKMIJ6579-81-09 11:32:00 Test Item Value Reference Range Interpretation Comments C3 Complement (test code = C3 137 88-201 Complement) [facility] HospitalSxzeexzIKLKIFEMRC7733-49-45 11:32:00 Test Item Value Reference Range Interpretation Comments HIV. (test code = Negative *NA*(07/30/16 HIV.) 5:32 AM) [facility] HospitalSujhypfNFSKTYBDAXIJ7738-88-29 11:32:00 Test Item Value Reference Range Interpretation Comments AGAP (test code = AGAP) 14.6 10.0-20.0 [facility] HospitalIagymjiULQIDOJIHLWC6228-71-03 11:32:00 Test Item Value Reference Range Interpretation Comments eGFR (test code = eGFR) 33 [facility]WxxtzygMLOSRFMQVJLF5409-82-22 11:32:00 Test Item Value Reference Range Interpretation Comments Calcium Lvl (test code = Calcium Lvl) 8.3 8.5-10.5 [facility] HospitalWnrkigaZTWXCIOBJNLQ1397-82-55 11:32:00 Test Item Value Reference Range Interpretation Comments Glucose Lvl (test code = Glucose Lvl) 81 70-99 [facility] HospitalKisimfyITWNBDCUJUSR3012-10-62 11:32:00 Test Item Value Reference Range Interpretation Comments Creatinine Lvl (test code = Creatinine 1.95 0.50-1.40 Lvl) [facility] HospitalBqafwznZCHCBUDBIKXR5593-98-04 11:32:00 Test Item Value Reference Range Interpretation Comments BUN (test code = BUN) 55 7-22 [facility] HospitalGagwhvbSDXIJIPPVXQC2126-40-96 11:32:00 Test Item Value Reference Range Interpretation Comments CO2 (test code = CO2) 19 24-32 [facility] HospitalZzheqrcKQTPDQCXXIJX1304-63-80 11:32:00 Test Item Value Reference Range Interpretation Comments Chloride Lvl (test code = Chloride Lvl) 110 95-109 [facility] HospitalOiwyrjnTQIYHUXSJBXJ0302-86-34 11:32:00 Test Item Value Reference Range Interpretation Comments Sodium Lvl (test code = Sodium Lvl) 139 135-145 [facility]GzzzntkBNQQQLEPSPKI2684-02-89 11:32:00 Test Item Value Reference Range Interpretation Comments Potassium Lvl (test code = Potassium 4.6 3.5-5.1 Lvl) [facility]KestkcaVUBTTMXNKW5564-01-79 11:32:00 Test Item Value Reference Range Interpretation Comments Lymphocytes (test code = Lymphocytes) 30.4 20.0-40.0 [facility] CenterTvxcsbiMKOQLFNMFR7947-85-50 11:32:00 Test Item Value Reference Range Interpretation Comments Eosinophils (test code = 4.5 See_Comment [A utomated message] The Eosinophils) system which ge nerated this result tra nsmitted reference range : <=4.0. The reference r leo was not used to int erpret this result as normal/abnormal . [facility] CenterJhxeskfFECFRXCMIB3185-93-26 11:32:00 Test Item Value Reference Range Interpretation Comments Monocytes (test code = Monocytes) 13.7 2.0-12.0 [facility] CenterCvynzadJATICSMANQ7785-08-71 11:32:00 Test Item Value Reference Range Interpretation Comments Segs-Bands # (test code = Segs-Bands #) 2.6 1.5-8.1 [facility] CenterPlgncuiTACBPWEEPS0645-74-27 11:32:00 Test Item Value Reference Range Interpretation Comments Basophils (test code = 0.7 See_Comment [Aut omated message] The Basophils) system which ge nerated this result tra nsmitted reference range : <=1.0. The reference r leo was not used to int erpret this result as normal/abnormal . [facility] CenterUjdwyccCPXMNLQHLA1088-23-80 11:32:00 Test Item Value Reference Range Interpretation Comments Monocytes # (test code 0.7 See_Comment [Aut omated message] The = Monocytes #) system which generated this result tra nsmitted reference range : <=0.8. The reference r leo was not used to int erpret this result as normal/abnormal . [facility] CenterMzmjudzTUPCGOGGKW3822-89-26 11:32:00 Test Item Value Reference Range Interpretation Comments Lymphocytes # (test code = Lymphocytes 1.6 1.0-5.5 #) [facility] CenterWyumivgYMVGMAMIZQ1868-08-36 11:32:00 Test Item Value Reference Range Interpretation Comments Eosinophils # (test code 0.2 See_Comment [A utomated message] The = Eosinophils #) system [employer] generated this result tra nsmitted reference range : <=0.5. The reference r leo was not used to int erpret this result as normal/abnormal . [facility] CenterEraokfbKJIBLYCXUD6003-82-98 11:32:00 Test Item Value Reference Range Interpretation Comments Segs (test code = Segs) 50.7 45.0-75.0 [facility] CenterMnxenqrOXXAIERLTJ6284-73-53 11:32:00 Test Item Value Reference Range Interpretation [...] iron deficiency anemia, and renal disease. CPT: 59939 [facility] CenterJtpfmwvHDQIQKTAZE9128-81-31 11:32:00 Test Item Value Reference Range Interpretation Comments Hct (test code = Hct) 28.1 36.0-48.0 [facility] CenterCnftxjvQQAIIDYQPV4522-74-53 11:32:00 Test Item Value Reference Range Interpretation Comments RBC (test code = RBC) 3.39 4.20-5.40 [facility] CenterWxiqhwvVFFJFXJATI1189-51-62 11:32:00 Test Item Value Reference Range Interpretation Comments Hgb (test code = Hgb) 8.9 12.0-16.0 [facility] CenterCdhaemfZFQTGBBVLO8326-26-20 11:32:00 Test Item Value Reference Range Interpretation Comments WBC (test code = WBC) 5.1 3.7-10.4 [facility] CenterHgysrqqWBIQPAMMZP8238-80-59 11:32:00 Test Item Value Reference Range Interpretation Comments MPV (test code = MPV) 11.3 7.4-10.4 [facility] CenterHnagpmjPMJYYXYOXW5895-70-58 11:32:00 Test Item Value Reference Range Interpretation Comments Platelet (test code = Platelet) 118 133-450 [facility] CenterTlilmemPTVFARJACF6655-45-33 11:32:00 Test Item Value Reference Range Interpretation Comments MCHC (test code = MCHC) 31.8 32.0-36.0 [facility] CenterMlkuybrOBXLWVSVIY2815-18-83 11:32:00 Test Item Value Reference Range Interpretation Comments RDW (test code = RDW) 18.0 11.5-14.5 [facility] CenterEolqmidXWBKULEWVC7775-17-41 11:32:00 Test Item Value Reference Range Interpretation Comments MCV (test code = MCV) 83.0 80.0-98.0 [facility] CenterKhtoowkKEXAOOWURP7596-82-00 11:32:00 Test Item Value Reference Range Interpretation Comments MCH (test code = MCH) 26.4 pg 27.0-31.0 [facility] HospitalKtcwtozWFRSSYNNSC9619-51-60 11:32:00 Test Item Value Reference Range Interpretation Comments C3 Complement (test code = C3 137 88-201 Complement) [facility] HospitalKevfmpnRSMLJOCRUN5459-81-99 11:32:00 Test Item Value Reference Range Interpretation Comments HIV. (test code = Negative *NA*(07/30/16 HIV.) 5:32 AM) [facility] HospitalLzllngnCOIMOZIFDNXZ8619-60-86 11:32:00 Test Item Value Reference Range Interpretation Comments AGAP (test code = AGAP) 14.6 10.0-20.0 [facility] HospitalHaznrozKHGFYPSDNLFE4170-54-75 11:32:00 Test Item Value Reference Range Interpretation Comments eGFR (test code = eGFR) 33 [facility] HospitalRawmjvcXKZPWYYDNTIY7080-62-19 11:32:00 Test Item Value Reference Range Interpretation Comments Calcium Lvl (test code = Calcium Lvl) 8.3 8.5-10.5 [facility] HospitalOjovxmqVDPZHIEEMYHA6146-99-09 11:32:00 Test Item Value Reference Range Interpretation Comments Glucose Lvl (test code = Glucose Lvl) 81 70-99 [facility] HospitalGberzktRTXURKHKSDRE8837-98-17 11:32:00 Test Item Value Reference Range Interpretation Comments Creatinine Lvl (test code = Creatinine 1.95 0.50-1.40 Lvl) [facility] HospitalXdbxoftKBEFMQWIQDBN2344-24-05 11:32:00 Test Item Value Reference Range Interpretation Comments BUN (test code = BUN) 55 7-22 [facility] HospitalXrjucmmDBSCZPJMELFK0204-96-43 11:32:00 Test Item Value Reference Range Interpretation Comments CO2 (test code = CO2) 19 24-32 [facility] HospitalBbdvbgeLMZGEKJMNQWK9689-83-61 11:32:00 Test Item Value Reference Range Interpretation Comments Chloride Lvl (test code = Chloride Lvl) 110 95-109 [facility] HospitalUzrnghsRAFANJJJDOKV6611-95-74 11:32:00 Test Item Value Reference Range Interpretation Comments Sodium Lvl (test code = Sodium Lvl) 139 135-145 [facility] HospitalRtqxfwoJMMEBFKTUJDQ2730-60-99 11:32:00 Test Item Value Reference Range Interpretation Comments Potassium Lvl (test code = Potassium 4.6 3.5-5.1 Lvl) [facility] CenterWyxvppzAFRBDXXPCZ2949-63-76 11:32:00 Test Item Value Reference Range Interpretation Comments Lymphocytes (test code = Lymphocytes) 30.4 20.0-40.0 [facility] CenterAfjaffxJLJFGOYZXJ6438-30-01 11:32:00 Test Item Value Reference Range Interpretation Comments Eosinophils (test code = 4.5 See_Comment [A utomated message] The Eosinophils) system which ge nerated this result tra nsmitted reference range : <=4.0. The reference r leo was not used to int erpret this result as normal/abnormal . [facility] CenterKzylcwlEQLDVOXNLO2049-13-77 11:32:00 Test Item Value Reference Range Interpretation Comments Monocytes (test code = Monocytes) 13.7 2.0-12.0 [facility] CenterVvmvkjkUFCSTWKGVF2572-31-73 11:32:00 Test Item Value Reference Range Interpretation Comments Segs-Bands # (test code = Segs-Bands #) 2.6 1.5-8.1 [facility] CenterYnpbpobYYWTOJIYNA0711-60-46 11:32:00 Test Item Value Reference Range Interpretation Comments Basophils (test code = 0.7 See_Comment [Aut omated message] The Basophils) system which ge nerated this result tra nsmitted reference range : <=1.0. The reference r leo was not used to int erpret this result as normal/abnormal . [facility] CenterPfrjxfeVZCLTWYQKM2051-39-33 11:32:00 Test Item Value Reference Range Interpretation Comments Monocytes # (test code 0.7 See_Comment [Aut omated message] The = Monocytes #) system which generated this result tra nsmitted reference range : <=0.8. The reference r leo was not used to int erpret this result as normal/abnormal . [facility] CenterBpseorbBXHFBVMSQW1912-93-93 11:32:00 Test Item Value Reference Range Interpretation Comments Lymphocytes # (test code = Lymphocytes 1.6 1.0-5.5 #) [facility] CenterCifkkrdLGKOIOKQMM1930-23-74 11:32:00 Test Item Value Reference Range Interpretation Comments Eosinophils # (test code 0.2 See_Comment [A utomated message] The = Eosinophils #) system [employer] generated this result tra nsmitted reference range : <=0.5. The reference r leo was not used to int erpret this result as normal/abnormal . [facility] CenterWckenxdAHSJVUZHHR0657-39-36 11:32:00 Test Item Value Reference Range Interpretation Comments Segs (test code = Segs) 50.7 45.0-75.0 [facility] CenterKsewkptEWXFGGRYPN5211-29-46 11:32:00 Test Item Value Reference Range Interpretation [...] iron deficiency anemia, and renal disease. CPT: 56117 [facility] CenterUriydjuFGIHATYURX8189-51-60 11:32:00 Test Item Value Reference Range Interpretation Comments Hct (test code = Hct) 28.1 36.0-48.0 [facility] CenterKyfhnvzMGBLSAEBMF9383-78-48 11:32:00 Test Item Value Reference Range Interpretation Comments RBC (test code = RBC) 3.39 4.20-5.40 [facility] CenterQevjfpnPFSOKAKSAY6349-60-28 11:32:00 Test Item Value Reference Range Interpretation Comments Hgb (test code = Hgb) 8.9 12.0-16.0 [facility] CenterWwrpxohGPAUOLLOHM2707-72-30 11:32:00 Test Item Value Reference Range Interpretation Comments WBC (test code = WBC) 5.1 3.7-10.4 [facility] CenterTqilgnwTIKCFZFGJD4465-17-81 11:32:00 Test Item Value Reference Range Interpretation Comments MPV (test code = MPV) 11.3 7.4-10.4 [facility] CenterFwgbwtxSCUEXHVUAI9769-23-53 11:32:00 Test Item Value Reference Range Interpretation Comments Platelet (test code = Platelet) 118 133-450 [facility] CenterWbjzeweTBWXUXWRVU8261-91-39 11:32:00 Test Item Value Reference Range Interpretation Comments MCHC (test code = MCHC) 31.8 32.0-36.0 [facility] CenterOidgfvrBVSPXSPRNP8886-83-81 11:32:00 Test Item Value Reference Range Interpretation Comments RDW (test code = RDW) 18.0 11.5-14.5 [facility] CenterVwxvqcfBKRBHFJCFO8818-55-02 11:32:00 Test Item Value Reference Range Interpretation Comments MCV (test code = MCV) 83.0 80.0-98.0 [facility] CenterDpyaquhRUKNCRQPER1149-85-82 11:32:00 Test Item Value Reference Range Interpretation Comments MCH (test code = MCH) 26.4 pg 27.0-31.0 [facility] HospitalKejhxrfFMXTEBQHXL3534-82-68 11:32:00 Test Item Value Reference Range Interpretation Comments C3 Complement (test code = C3 137 65-201 Complement) [facility] HospitalQyiwjneXMSRPGILJI2766-14-36 11:32:00 Test Item Value Reference Range Interpretation Comments HIV. (test code = Negative *NA*(07/30/16 HIV.) 5:32 AM) [facility] CenterPrnnowfUPEYRUEAKI4888-14-20 11:05:00 Test Item Value Reference Range Interpretation [...] iron deficiency anemia, and renal disease. CPT: 76062 [facility] HospitalQstctkbKRSPUJGJUM3721-11-63 11:05:00 Test Item Value Reference Range Interpretation Comments HIV. (test code = Negative *NA*(07/29/16 HIV.) 5:05 AM) [facility] HospitalRbahemeWEGFARVZVQ4679-40-16 11:05:00 Test Item Value Reference Range Interpretation Comments C3 Complement (test code = C3 92 88-201 Complement) [facility] CenterIbwoxwoGLLWMDWHLA9262-72-15 11:05:00 Test Item Value Reference Range Interpretation [...] iron deficiency anemia, and renal disease. CPT: 94874 [facility] HospitalImzqiccQXGTIHPRAO4766-32-42 11:05:00 Test Item Value Reference Range Interpretation Comments HIV. (test code = Negative *NA*(07/29/16 HIV.) 5:05 AM) [facility] HospitalSddheurMQAXERRWFN7778-66-15 11:05:00 Test Item Value Reference Range Interpretation Comments C3 Complement (test code = C3 92 88-201 Complement) [facility] CenterRonwyqxFCTWQOYTLZ6980-31-04 11:05:00 Test Item Value Reference Range Interpretation [...] iron deficiency anemia, and renal disease. CPT: 02618 [facility] HospitalHwgbvkmBLWWJXZVPD9061-84-65 11:05:00 Test Item Value Reference Range Interpretation Comments HIV. (test code = Negative *NA*(07/29/16 HIV.) 5:05 AM) [facility] HospitalAqunaefWAZTDWRAMV1164-21-60 11:05:00 Test Item Value Reference Range Interpretation Comments C3 Complement (test code = C3 92 88-201 Complement) [facility] CenterGmwlapbAOUQCXLRFN3812-47-91 11:05:00 Test Item Value Reference Range Interpretation [...] iron deficiency anemia, and renal disease. CPT: 04179 [facility] HospitalPjrmucaILQNIVWKCW9730-91-48 11:05:00 Test Item Value Reference Range Interpretation Comments HIV. (test code = Negative *NA*(07/29/16 HIV.) 5:05 AM) [facility] CenterCccchxhXVJPGEKWMA9006-90-22 11:05:00 Test Item Value Reference Range Interpretation Comments C3 Complement (test code = C3 92 88-201 Complement) [facility]PerunywYBWKXPZZWV3500-99-99 11:05:00 Test Item Value Reference Range Interpretation [...] iron deficiency anemia, and renal disease. CPT: 68031 [facility] HospitalEncagjmZKQTRSZSRT5101-29-54 11:05:00 Test Item Value Reference Range Interpretation Comments HIV. (test code = Negative *NA*(07/29/16 HIV.) 5:05 AM) [facility] HospitalVhruvcdJNVQUWEIKR8869-02-37 11:05:00 Test Item Value Reference Range Interpretation Comments C3 Complement (test code = C3 92 88-201 Complement) [facility]2017-02-07 15:50:00 Test Item Value Reference Range Interpretation Comments eGFR (test code = eGFR) 25 [facility]2017-02-07 15:50:00 Test Item Value Reference Range Interpretation Comments BUN (test code = BUN) 55 7-22 [facility]2017-02-07 15:50:00 Test Item Value Reference Range Interpretation Comments CO2 (test code = CO2) 23 24-32 [facility]2017-02-07 15:50:00 Test Item Value Reference Range Interpretation Comments Chloride Lvl (test code = Chloride Lvl) 109 95-109 [facility]2017-02-07 15:50:00 Test Item Value Reference Range Interpretation Comments Glucose Lvl (test code = Glucose Lvl) 101 70-99 [facility]2017-02-07 15:50:00 Test Item Value Reference Range Interpretation Comments Potassium Lvl (test code = Potassium 4.0 3.5-5.1 Lvl) [facility]2017-02-07 15:50:00 Test Item Value Reference Range Interpretation Comments Sodium Lvl (test code = Sodium Lvl) 141 135-145 [facility]2017-02-07 15:50:00 Test Item Value Reference Range Interpretation Comments AGAP (test code = AGAP) 13.0 10.0-20.0 [facility]2017-02-07 15:50:00 Test Item Value Reference Range Interpretation Comments Calcium Lvl (test code = Calcium Lvl) 7.7 8.5-10.5 [facility]2017-02-07 15:50:00 Test Item Value Reference Range Interpretation Comments Creatinine Lvl (test code = Creatinine 2.49 0.50-1.40 Lvl) [facility] CenterTfzovtrMPUVPMUHAY5441-62-13 15:50:00 Test Item Value Reference Range Interpretation Comments PT (test code = PT) 14.8 s 12.0-14.7 [facility] CenterFmxwkvoSTOVHFLRMK8393-72-71 15:50:00 Test Item Value Reference Range Interpretation Comments PTT (test code = PTT) 40.8 s 22.9-35.8 [facility] CenterMdnfzbxKPEOGSJCAQ5843-18-20 15:50:00 Test Item Value Reference Range Interpretation Comments INR (test code = INR) 1.14 0.85-1.17 [facility] CenterCteqvoxWGPSJONAPN6190-21-50 15:50:00 Test Item Value Reference Range Interpretation Comments C3 Complement (test code = C3 94 88-201 Complement) [facility]2017-02-07 15:50:00 Test Item Value Reference Range Interpretation Comments eGFR (test code = eGFR) 25 [facility]2017-02-07 15:50:00 Test Item Value Reference Range Interpretation Comments BUN (test code = BUN) 55 7-22 [facility]2017-02-07 15:50:00 Test Item Value Reference Range Interpretation Comments CO2 (test code = CO2) 23 24-32 [facility]2017-02-07 15:50:00 Test Item Value Reference Range Interpretation Comments Chloride Lvl (test code = Chloride Lvl) 109 95-109 [facility]2017-02-07 15:50:00 Test Item Value Reference Range Interpretation Comments Glucose Lvl (test code = Glucose Lvl) 101 70-99 [facility]2017-02-07 15:50:00 Test Item Value Reference Range Interpretation Comments Potassium Lvl (test code = Potassium 4.0 3.5-5.1 Lvl) [facility]2017-02-07 15:50:00 Test Item Value Reference Range Interpretation Comments Sodium Lvl (test code = Sodium Lvl) 141 135-145 [facility]2017-02-07 15:50:00 Test Item Value Reference Range Interpretation Comments AGAP (test code = AGAP) 13.0 10.0-20.0 [facility]2017-02-07 15:50:00 Test Item Value Reference Range Interpretation Comments Calcium Lvl (test code = Calcium Lvl) 7.7 8.5-10.5 [facility]2017-02-07 15:50:00 Test Item Value Reference Range Interpretation Comments Creatinine Lvl (test code = Creatinine 2.49 0.50-1.40 Lvl) [facility] CenterWsivozcDZMUYHCYQT7691-27-22 15:50:00 Test Item Value Reference Range Interpretation Comments PT (test code = PT) 14.8 s 12.0-14.7 [facility] CenterErosclyEYLUEOUSAP9502-21-11 15:50:00 Test Item Value Reference Range Interpretation Comments PTT (test code = PTT) 40.8 s 22.9-35.8 [facility] CenterClmmgoiXDVFOANJDK6009-26-10 15:50:00 Test Item Value Reference Range Interpretation Comments INR (test code = INR) 1.14 0.85-1.17 [facility] CenterQjcvfveIDTEMGHYQG3340-86-50 15:50:00 Test Item Value Reference Range Interpretation Comments C3 Complement (test code = C3 94 88-201 Complement) [facility]2017-02-07 15:50:00 Test Item Value Reference Range Interpretation Comments eGFR (test code = eGFR) 25 [facility]2017-02-07 15:50:00 Test Item Value Reference Range Interpretation Comments BUN (test code = BUN) 55 7-22 [facility]2017-02-07 15:50:00 Test Item Value Reference Range Interpretation Comments CO2 (test code = CO2) 23 24-32 [facility]2017-02-07 15:50:00 Test Item Value Reference Range Interpretation Comments Chloride Lvl (test code = Chloride Lvl) 109 95-109 [facility]2017-02-07 15:50:00 Test Item Value Reference Range Interpretation Comments Glucose Lvl (test code = Glucose Lvl) 101 70-99 [facility]2017-02-07 15:50:00 Test Item Value Reference Range Interpretation Comments Potassium Lvl (test code = Potassium 4.0 3.5-5.1 Lvl) [facility]2017-02-07 15:50:00 Test Item Value Reference Range Interpretation Comments Sodium Lvl (test code = Sodium Lvl) 141 135-145 [facility]2017-02-07 15:50:00 Test Item Value Reference Range Interpretation Comments AGAP (test code = AGAP) 13.0 10.0-20.0 [facility]2017-02-07 15:50:00 Test Item Value Reference Range Interpretation Comments Calcium Lvl (test code = Calcium Lvl) 7.7 8.5-10.5 [facility]2017-02-07 15:50:00 Test Item Value Reference Range Interpretation Comments Creatinine Lvl (test code = Creatinine 2.49 0.50-1.40 Lvl) [facility] CenterWdpywvnINQWMYPFPN8018-19-70 15:50:00 Test Item Value Reference Range Interpretation Comments PT (test code = PT) 14.8 s 12.0-14.7 [facility] CenterXysyubrBWOCDRMSQX5309-71-17 15:50:00 Test Item Value Reference Range Interpretation Comments PTT (test code = PTT) 40.8 s 22.9-35.8 [facility] CenterKlxbqwkRFPUMFUXQL2044-44-83 15:50:00 Test Item Value Reference Range Interpretation Comments INR (test code = INR) 1.14 0.85-1.17 [facility] CenterBwmdikzHZHESBXMAJ6935-91-19 15:50:00 Test Item Value Reference Range Interpretation Comments C3 Complement (test code = C3 94 88-201 Complement) [facility]2017-02-07 15:50:00 Test Item Value Reference Range Interpretation Comments eGFR (test code = eGFR) 25 [facility]2017-02-07 15:50:00 Test Item Value Reference Range Interpretation Comments BUN (test code = BUN) 55 7-22 [facility]2017-02-07 15:50:00 Test Item Value Reference Range Interpretation Comments CO2 (test code = CO2) 23 24-32 [facility]2017-02-07 15:50:00 Test Item Value Reference Range Interpretation Comments Chloride Lvl (test code = Chloride Lvl) 109 95-109 [facility]2017-02-07 15:50:00 Test Item Value Reference Range Interpretation Comments Glucose Lvl (test code = Glucose Lvl) 101 70-99 [facility]2017-02-07 15:50:00 Test Item Value Reference Range Interpretation Comments Potassium Lvl (test code = Potassium 4.0 3.5-5.1 Lvl) [facility]2017-02-07 15:50:00 Test Item Value Reference Range Interpretation Comments Sodium Lvl (test code = Sodium Lvl) 141 135-145 [facility]2017-02-07 15:50:00 Test Item Value Reference Range Interpretation Comments AGAP (test code = AGAP) 13.0 10.0-20.0 [facility]2017-02-07 15:50:00 Test Item Value Reference Range Interpretation Comments Calcium Lvl (test code = Calcium Lvl) 7.7 8.5-10.5 [facility]2017-02-07 15:50:00 Test Item Value Reference Range Interpretation Comments Creatinine Lvl (test code = Creatinine 2.49 0.50-1.40 Lvl) [facility] CenterQxhmimjCWOTJLYZHA5925-08-50 15:50:00 Test Item Value Reference Range Interpretation Comments PT (test code = PT) 14.8 s 12.0-14.7 [facility] CenterGcphgweVZZDCMMSYP3855-66-75 15:50:00 Test Item Value Reference Range Interpretation Comments PTT (test code = PTT) 40.8 s 22.9-35.8 [facility] CenterDresfxbSHWULXUALC2872-40-41 15:50:00 Test Item Value Reference Range Interpretation Comments INR (test code = INR) 1.14 0.85-1.17 [facility] CenterJdgbzzdYYRIUKQHKD1059-42-06 15:50:00 Test Item Value Reference Range Interpretation Comments C3 Complement (test code = C3 94 88-201 Complement) [facility]2017-02-07 15:50:00 Test Item Value Reference Range Interpretation Comments eGFR (test code = eGFR) 25 [facility]2017-02-07 15:50:00 Test Item Value Reference Range Interpretation Comments BUN (test code = BUN) 55 7-22 [facility]2017-02-07 15:50:00 Test Item Value Reference Range Interpretation Comments CO2 (test code = CO2) 23 24-32 [facility]2017-02-07 15:50:00 Test Item Value Reference Range Interpretation Comments Chloride Lvl (test code = Chloride Lvl) 109 95-109 [facility]2017-02-07 15:50:00 Test Item Value Reference Range Interpretation Comments Glucose Lvl (test code = Glucose Lvl) 101 70-99 [facility]2017-02-07 15:50:00 Test Item Value Reference Range Interpretation Comments Potassium Lvl (test code = Potassium 4.0 3.5-5.1 Lvl) [facility]2017-02-07 15:50:00 Test Item Value Reference Range Interpretation Comments Sodium Lvl (test code = Sodium Lvl) 141 135-145 [facility]2017-02-07 15:50:00 Test Item Value Reference Range Interpretation Comments AGAP (test code = AGAP) 13.0 10.0-20.0 [facility]2017-02-07 15:50:00 Test Item Value Reference Range Interpretation Comments Calcium Lvl (test code = Calcium Lvl) 7.7 8.5-10.5 [facility]2017-02-07 15:50:00 Test Item Value Reference Range Interpretation Comments Creatinine Lvl (test code = Creatinine 2.49 0.50-1.40 Lvl) [facility]rojkpiUTMWZAHICL1855-68-95 15:50:00 Test Item Value Reference Range Interpretation Comments PT (test code = PT) 14.8 s 12.0-14.7 [facility] CenterHokcxhmMTJABWKKPM6827-46-02 15:50:00 Test Item Value Reference Range Interpretation Comments PTT (test code = PTT) 40.8 s 22.9-35.8 [facility] CenterSrqzpxzIMOXEGPIKV5079-08-28 15:50:00 Test Item Value Reference Range Interpretation Comments INR (test code = INR) 1.14 0.85-1.17 [facility]qzglaPPJJNIAVAM2013-64-43 15:50:00 Test Item Value Reference Range Interpretation Comments C3 Complement (test code = C3 94 88-201 Complement) [facility] CenterAscbzkzCDPTQAUNVB9059-77-21 10:35:00 Test Item Value Reference Range Interpretation Comments Lymphocytes # (test code = Lymphocytes 1.7 1.0-5.5 #) [facility] CenterLpjlvpcEPRQJBOHNO7170-88-05 10:35:00 Test Item Value Reference Range Interpretation Comments Segs-Bands # (test code = Segs-Bands #) 2.7 1.5-8.1 [facility] CenterZrjpfxbMLUDXHQUYC2024-10-09 10:35:00 Test Item Value Reference Range Interpretation Comments Eosinophils # (test code 0.1 See_Comment [A utomated message] The = Eosinophils #) system whic h generated this result tra nsmitted reference range : <=0.5. The reference r leo was not used to int erpret this result as normal/abnormal . [facility] CenterEdzsufoLGMOLBVJBU2246-45-05 10:35:00 Test Item Value Reference Range Interpretation Comments Monocytes # (test code 0.7 See_Comment [Aut omated message] The = Monocytes #) system which generated this result tra nsmitted reference range : <=0.8. The reference r leo was not used to int erpret this result as normal/abnormal . [facility] CenterDamzwcbEKRTSGTUTP9772-23-36 10:35:00 Test Item Value Reference Range Interpretation Comments Segs (test code = Segs) 51.3 45.0-75.0 [facility] CenterKstmjvtBLMYUHFRRL2345-77-97 10:35:00 Test Item Value Reference Range Interpretation Comments Lymphocytes (test code = Lymphocytes) 31.6 20.0-40.0 [facility] CenterNfwyyhfQDNCPLKUND4290-46-36 10:35:00 Test Item Value Reference Range Interpretation Comments Monocytes (test code = Monocytes) 14.1 2.0-12.0 [facility] CenterZtokzfwQWOMUMDFEL9714-56-76 10:35:00 Test Item Value Reference Range Interpretation Comments Eosinophils (test code = 2.6 See_Comment [A utomated message] The Eosinophils) system which ge nerated this result tra nsmitted reference range : <=4.0. The reference r leo was not used to int erpret this result as normal/abnormal . [facility] CenterJqallgpUEVBPVHZWM1142-92-94 10:35:00 Test Item Value Reference Range Interpretation Comments Basophils (test code = 0.4 See_Comment [Aut omated message] The Basophils) system which ge nerated this result tra nsmitted reference range : <=1.0. The reference r leo was not used to int erpret this result as normal/abnormal . [facility] CenterMvipfiyNYJDVMECLI7225-95-10 10:35:00 Test Item Value Reference Range Interpretation Comments PB Smear Path Peripheral blood smear shows (test code = PB hypochromic normocytic Smear Path) anemia with anisopoikilocytsosis, no increase in schistocytes, slight polychromasia, a few estella cells, moderate thrombocytopenia. Impression: (1) no evidence of microangiopathic hemolysis, (2) RBC morphology is suggestive of anemia of chronic disease or iron deficiency anemia, and renal disease. CPT: 23618 [facility] CenterZbhgogcOPDFNUKVMD2623-24-73 10:35:00 Test Item Value Reference Range Interpretation Comments Hct (test code = Hct) 29.3 36.0-48.0 [facility] CenterIfoieejQMEDACBDCW2388-06-14 10:35:00 Test Item Value Reference Range Interpretation Comments Hgb (test code = Hgb) 9.2 12.0-16.0 [facility] CenterYrmnqzhQSDGANVIWN5834-94-73 10:35:00 Test Item Value Reference Range Interpretation Comments RBC (test code = RBC) 3.54 4.20-5.40 [facility] CenterWluykgzZMIBIFHIUP9721-51-04 10:35:00 Test Item Value Reference Range Interpretation Comments WBC (test code = WBC) 5.3 3.7-10.4 [facility] CenterPzxxtboDKVTIMKHGO1381-88-52 10:35:00 Test Item Value Reference Range Interpretation Comments Platelet (test code = Platelet) 87 133-450 [facility] CenterJsaapbwKGLBVYFXSR6937-10-37 10:35:00 Test Item Value Reference Range Interpretation Comments MCHC (test code = MCHC) 31.4 32.0-36.0 [facility] CenterEdmjtdqJNIUKQUVHB3148-34-41 10:35:00 Test Item Value Reference Range Interpretation Comments RDW (test code = RDW) 17.9 11.5-14.5 [facility] CenterWxtvqhiXFYAZVEGMC1162-83-15 10:35:00 Test Item Value Reference Range Interpretation Comments MPV (test code = MPV) 10.9 7.4-10.4 [facility] CenterLcqyyqpZXWFNWAMKK2841-42-80 10:35:00 Test Item Value Reference Range Interpretation Comments MCH (test code = MCH) 26.0 pg 27.0-31.0 [facility] CenterBncybdwCTIYANZSCY7722-02-70 10:35:00 Test Item Value Reference Range Interpretation Comments MCV (test code = MCV) 82.8 80.0-98.0 [facility]LwwycpyFCGQXBUDBZ8592-79-70 10:35:00 Test Item Value Reference Range Interpretation Comments HIV. (test code = Negative *NA*(07/28/16 HIV.) 4:35 AM) [facility] CenterQknrsjrRIKSWLHOQB4801-92-05 10:35:00 Test Item Value Reference Range Interpretation Comments Lymphocytes # (test code = Lymphocytes 1.7 1.0-5.5 #) [facility] CenterUsfrgoaGLGVAXZQDP3389-42-88 10:35:00 Test Item Value Reference Range Interpretation Comments Segs-Bands # (test code = Segs-Bands #) 2.7 1.5-8.1 [facility] CenterNcswktiNCHMLZQUAX6257-47-71 10:35:00 Test Item Value Reference Range Interpretation Comments Eosinophils # (test code 0.1 See_Comment [A utomated message] The = Eosinophils #) system whic h generated this result tra nsmitted reference range : <=0.5. The reference r leo was not used to int erpret this result as normal/abnormal . [facility] CenterOsulljuXMCCKCBFLK6791-85-96 10:35:00 Test Item Value Reference Range Interpretation Comments Monocytes # (test code 0.7 See_Comment [Aut omated message] The = Monocytes #) system which generated this result tra nsmitted reference range : <=0.8. The reference r leo was not used to int erpret this result as normal/abnormal . [facility] CenterGoyyjrzABKOFJRUJK6113-27-10 10:35:00 Test Item Value Reference Range Interpretation Comments Segs (test code = Segs) 51.3 45.0-75.0 [facility] CenterJtgdvzoRMCADJSFVQ3608-70-67 10:35:00 Test Item Value Reference Range Interpretation Comments Lymphocytes (test code = Lymphocytes) 31.6 20.0-40.0 [facility] CenterJhyfkcfEJLOOTDTXD4335-59-35 10:35:00 Test Item Value Reference Range Interpretation Comments Monocytes (test code = Monocytes) 14.1 2.0-12.0 [facility] CenterTmddypmQJHEKRYYRN7707-09-07 10:35:00 Test Item Value Reference Range Interpretation Comments Eosinophils (test code = 2.6 See_Comment [A utomated message] The Eosinophils) system which ge nerated this result tra nsmitted reference range : <=4.0. The reference r leo was not used to int erpret this result as normal/abnormal . [facility] CenterRaftsswDZZKVBOTZO8488-71-05 10:35:00 Test Item Value Reference Range Interpretation Comments Basophils (test code = 0.4 See_Comment [Aut omated message] The Basophils) system which ge nerated this result tra nsmitted reference range : <=1.0. The reference r leo was not used to int erpret this result as normal/abnormal . [facility] CenterLvecldzHBTMLQGKGX8722-09-08 10:35:00 Test Item Value Reference Range Interpretation Comments PB Smear Path Peripheral blood smear shows (test code = PB hypochromic normocytic Smear Path) anemia with anisopoikilocytsosis, no increase in schistocytes, slight polychromasia, a few estella cells, moderate thrombocytopenia. Impression: (1) no evidence of microangiopathic hemolysis, (2) RBC morphology is suggestive of anemia of chronic disease or iron deficiency anemia, and renal disease. CPT: 70665 [facility] CenterUvpesmxQBYNXLYYFS2914-23-72 10:35:00 Test Item Value Reference Range Interpretation Comments Hct (test code = Hct) 29.3 36.0-48.0 [facility] CenterPyjzmarWXBDWUBVNL2283-48-02 10:35:00 Test Item Value Reference Range Interpretation Comments Hgb (test code = Hgb) 9.2 12.0-16.0 [facility] CenterTbxqwaoRYNAUEVIFA7349-73-17 10:35:00 Test Item Value Reference Range Interpretation Comments RBC (test code = RBC) 3.54 4.20-5.40 [facility] CenterSunyobrCZZOBJVSSD4640-91-28 10:35:00 Test Item Value Reference Range Interpretation Comments WBC (test code = WBC) 5.3 3.7-10.4 [facility] CenterAwkytioVARZYFECFV1433-17-46 10:35:00 Test Item Value Reference Range Interpretation Comments Platelet (test code = Platelet) 87 133-450 [facility] CenterTyttcroVUDUHPOQGE1374-70-77 10:35:00 Test Item Value Reference Range Interpretation Comments MCHC (test code = MCHC) 31.4 32.0-36.0 [facility] CenterJdgxpjtRQQIJZZTQF9220-97-95 10:35:00 Test Item Value Reference Range Interpretation Comments RDW (test code = RDW) 17.9 11.5-14.5 [facility] CenterOlnzcylDXTYADFNED1445-76-09 10:35:00 Test Item Value Reference Range Interpretation Comments MPV (test code = MPV) 10.9 7.4-10.4 [facility] CenterWsncmkmPCYQMKDCCM0298-14-68 10:35:00 Test Item Value Reference Range Interpretation Comments MCH (test code = MCH) 26.0 pg 27.0-31.0 [facility] CenterAfldkieFYOOSKOOWM4563-69-65 10:35:00 Test Item Value Reference Range Interpretation Comments MCV (test code = MCV) 82.8 80.0-98.0 [facility] CenterDmnlbrqXVIFXKOGUI1776-44-29 10:35:00 Test Item Value Reference Range Interpretation Comments HIV. (test code = Negative *NA*(07/28/16 HIV.) 4:35 AM) [facility] CenterZdftuykEUOIXTDLVB0429-61-54 10:35:00 Test Item Value Reference Range Interpretation Comments Lymphocytes # (test code = Lymphocytes 1.7 1.0-5.5 #) [facility] CenterQdilqmvOZIYVZDDBQ6254-87-14 10:35:00 Test Item Value Reference Range Interpretation Comments Segs-Bands # (test code = Segs-Bands #) 2.7 1.5-8.1 [facility] CenterUbrjormNWXHRNCBSS7986-63-95 10:35:00 Test Item Value Reference Range Interpretation Comments Eosinophils # (test code 0.1 See_Comment [A utomated message] The = Eosinophils #) system whic h generated this result tra nsmitted reference range : <=0.5. The reference r leo was not used to int erpret this result as normal/abnormal . [facility] CenterYqigyomEMKIYNOIBM3709-79-10 10:35:00 Test Item Value Reference Range Interpretation Comments Monocytes # (test code 0.7 See_Comment [Aut omated message] The = Monocytes #) system which generated this result tra nsmitted reference range : <=0.8. The reference r leo was not used to int erpret this result as normal/abnormal . [facility] CenterDdydnrfINGYBCIPKY2721-93-00 10:35:00 Test Item Value Reference Range Interpretation Comments Segs (test code = Segs) 51.3 45.0-75.0 [facility] CenterNpwhjvtBCQELSXGQX5342-41-43 10:35:00 Test Item Value Reference Range Interpretation Comments Lymphocytes (test code = Lymphocytes) 31.6 20.0-40.0 [facility] CenterPtagmezFYNEBGLCIY1496-60-67 10:35:00 Test Item Value Reference Range Interpretation Comments Monocytes (test code = Monocytes) 14.1 2.0-12.0 [facility] CenterHiszdnoWESPEFWIMY1829-20-94 10:35:00 Test Item Value Reference Range Interpretation Comments Eosinophils (test code = 2.6 See_Comment [A utomated message] The Eosinophils) system which ge nerated this result tra nsmitted reference range : <=4.0. The reference r leo was not used to int erpret this result as normal/abnormal . [facility] CenterWejozbrUAYKMDNJGV4958-40-32 10:35:00 Test Item Value Reference Range Interpretation Comments Basophils (test code = 0.4 See_Comment [Aut omated message] The Basophils) system which ge nerated this result tra nsmitted reference range : <=1.0. The reference r leo was not used to int erpret this result as normal/abnormal . [facility] CenterWfrwaowGAIHBRUBVB1880-30-53 10:35:00 Test Item Value Reference Range Interpretation Comments PB Smear Path Peripheral blood smear shows (test code = PB hypochromic normocytic Smear Path) anemia with anisopoikilocytsosis, no increase in schistocytes, slight polychromasia, a few estella cells, moderate thrombocytopenia. Impression: (1) no evidence of microangiopathic hemolysis, (2) RBC morphology is suggestive of anemia of chronic disease or iron deficiency anemia, and renal disease. CPT: 48639 [facility] CenterMqxkbokXMMRGFHEYI6592-06-23 10:35:00 Test Item Value Reference Range Interpretation Comments Hct (test code = Hct) 29.3 36.0-48.0 [facility] CenterHesfrjcMZSXWPQDFI0129-18-63 10:35:00 Test Item Value Reference Range Interpretation Comments Hgb (test code = Hgb) 9.2 12.0-16.0 [facility] CenterFlafrauVTFKFOEEED8092-77-89 10:35:00 Test Item Value Reference Range Interpretation Comments RBC (test code = RBC) 3.54 4.20-5.40 [place] 216277-02-07 10:35:00 Test Item Value Reference Range Interpretation Comments WBC (test code = WBC) 5.3 3.7-10.4 [facility] CenterZuxesgrZBVGWYCEDY1193-71-28 10:35:00 Test Item Value Reference Range Interpretation Comments Platelet (test code = Platelet) 87 133-450 [facility] CenterNoyyjiiGJYIMHKOLT3100-08-77 10:35:00 Test Item Value Reference Range Interpretation Comments MCHC (test code = MCHC) 31.4 32.0-36.0 [facility] CenterDnjrcvzNQRILCUOYK4370-83-42 10:35:00 Test Item Value Reference Range Interpretation Comments RDW (test code = RDW) 17.9 11.5-14.5 [facility] CenterVylieymZJEOCUOAOF1917-01-06 10:35:00 Test Item Value Reference Range Interpretation Comments MPV (test code = MPV) 10.9 7.4-10.4 [facility] CenterPybhoguWTNAOOPKDH6144-50-16 10:35:00 Test Item Value Reference Range Interpretation Comments MCH (test code = MCH) 26.0 pg 27.0-31.0 [facility] CenterGpjjlywOVDAGUUVJV0711-27-62 10:35:00 Test Item Value Reference Range Interpretation Comments MCV (test code = MCV) 82.8 80.0-98.0 [facility] CenterJxqhateGMUMLLISEE1265-11-62 10:35:00 Test Item Value Reference Range Interpretation Comments HIV. (test code = Negative *NA*(07/28/16 HIV.) 4:35 AM) [facility] CenterAhxreozAENUYKRAOX6674-46-62 10:35:00 Test Item Value Reference Range Interpretation Comments Lymphocytes # (test code = Lymphocytes 1.7 1.0-5.5 #) [facility] CenterVefgmymCLHKEBNMSV8424-11-28 10:35:00 Test Item Value Reference Range Interpretation Comments Segs-Bands # (test code = Segs-Bands #) 2.7 1.5-8.1 [facility] CenterMmejrnzEFVUORNEGA1010-35-41 10:35:00 Test Item Value Reference Range Interpretation Comments Eosinophils # (test code 0.1 See_Comment [A utomated message] The = Eosinophils #) system whic h generated this result tra nsmitted reference range : <=0.5. The reference r leo was not used to int erpret this result as normal/abnormal . [facility] CenterHkzawyrKBXAIPODRA2508-43-47 10:35:00 Test Item Value Reference Range Interpretation Comments Monocytes # (test code 0.7 See_Comment [Aut omated message] The = Monocytes #) system which generated this result tra nsmitted reference range : <=0.8. The reference r leo was not used to int erpret this result as normal/abnormal . [facility] CenterLqqeuvvONWSHAWGES6624-73-44 10:35:00 Test Item Value Reference Range Interpretation Comments Segs (test code = Segs) 51.3 45.0-75.0 [facility] CenterJxbbautUXXMWZYGWY8725-59-75 10:35:00 Test Item Value Reference Range Interpretation Comments Lymphocytes (test code = Lymphocytes) 31.6 20.0-40.0 [facility] CenterGzadumnRHNODKDCMP8766-39-20 10:35:00 Test Item Value Reference Range Interpretation Comments Monocytes (test code = Monocytes) 14.1 2.0-12.0 [facility] CenterUphzzivONDZUNQOFM5734-26-33 10:35:00 Test Item Value Reference Range Interpretation Comments Eosinophils (test code = 2.6 See_Comment [A utomated message] The Eosinophils) system which ge nerated this result tra nsmitted reference range : <=4.0. The reference r leo was not used to int erpret this result as normal/abnormal . [facility] CenterVvqvcjcXGBAQHVOOO5954-35-90 10:35:00 Test Item Value Reference Range Interpretation Comments Basophils (test code = 0.4 See_Comment [Aut omated message] The Basophils) system which ge nerated this result tra nsmitted reference range : <=1.0. The reference r leo was not used to int erpret this result as normal/abnormal . [facility] CenterQibjhhwBPSUJOOWVI2976-41-17 10:35:00 Test Item Value Reference Range Interpretation Comments PB Smear Path Peripheral blood smear shows (test code = PB hypochromic normocytic Smear Path) anemia with anisopoikilocytsosis, no increase in schistocytes, slight polychromasia, a few estella cells, moderate thrombocytopenia. Impression: (1) no evidence of microangiopathic hemolysis, (2) RBC morphology is suggestive of anemia of chronic disease or iron deficiency anemia, and renal disease. CPT: 36474 [facility] CenterSpwoxtgXJIMGQGPGH7533-17-34 10:35:00 Test Item Value Reference Range Interpretation Comments Hct (test code = Hct) 29.3 36.0-48.0 [facility] CenterWumoqaoOQPXAXSTYS8663-97-38 10:35:00 Test Item Value Reference Range Interpretation Comments Hgb (test code = Hgb) 9.2 12.0-16.0 [facility] CenterOmbzbinBDNORBUWKS9898-79-02 10:35:00 Test Item Value Reference Range Interpretation Comments RBC (test code = RBC) 3.54 4.20-5.40 [facility] CenterIpvrsosSZBSZHHXJU7026-50-90 10:35:00 Test Item Value Reference Range Interpretation Comments WBC (test code = WBC) 5.3 3.7-10.4 [facility] CenterYjbuzldBMCHCCWWAF4353-69-15 10:35:00 Test Item Value Reference Range Interpretation Comments Platelet (test code = Platelet) 87 133-450 [facility] CenterYnkzlbxADFMHFPPOU3118-71-19 10:35:00 Test Item Value Reference Range Interpretation Comments MCHC (test code = MCHC) 31.4 32.0-36.0 [facility] CenterVdaxbalBYLIPXQCOD8845-67-42 10:35:00 Test Item Value Reference Range Interpretation Comments RDW (test code = RDW) 17.9 11.5-14.5 [facility] CenterIfmevhuLAWWFCWQTT2352-48-53 10:35:00 Test Item Value Reference Range Interpretation Comments MPV (test code = MPV) 10.9 7.4-10.4 [facility] CenterNzdlialUELHMJDLJI9593-11-43 10:35:00 Test Item Value Reference Range Interpretation Comments MCH (test code = MCH) 26.0 pg 27.0-31.0 [facility] CenterYbqupnbKZBHLHIWVM4123-53-11 10:35:00 Test Item Value Reference Range Interpretation Comments MCV (test code = MCV) 82.8 80.0-98.0 [facility] CenterCnsputgGEWUUBIBJC2330-39-19 10:35:00 Test Item Value Reference Range Interpretation Comments HIV. (test code = Negative *NA*(07/28/16 HIV.) 4:35 AM) [facility] CenterBfohhgpZERYKMZCJI3782-13-59 10:35:00 Test Item Value Reference Range Interpretation Comments Lymphocytes # (test code = Lymphocytes 1.7 1.0-5.5 #) [facility] CenterJounahcFMZQRHRPEU0462-71-60 10:35:00 Test Item Value Reference Range Interpretation Comments Segs-Bands # (test code = Segs-Bands #) 2.7 1.5-8.1 [facility] CenterDwmrneyJRLFWPDAMU4451-83-43 10:35:00 Test Item Value Reference Range Interpretation Comments Eosinophils # (test code 0.1 See_Comment [A utomated message] The = Eosinophils #) system whic h generated this result tra nsmitted reference range : <=0.5. The reference r leo was not used to int erpret this result as normal/abnormal . [facility] CenterAdxmgjgKUHHPMHNUX2063-95-20 10:35:00 Test Item Value Reference Range Interpretation Comments Monocytes # (test code 0.7 See_Comment [Aut omated message] The = Monocytes #) system which generated this result tra nsmitted reference range : <=0.8. The reference r leo was not used to int erpret this result as normal/abnormal . [facility] CenterCyotciaMYAKCHPZKP7563-80-94 10:35:00 Test Item Value Reference Range Interpretation Comments Segs (test code = Segs) 51.3 45.0-75.0 [facility] CenterHpxrbwuYYJFDECGSX8151-98-66 10:35:00 Test Item Value Reference Range Interpretation Comments Lymphocytes (test code = Lymphocytes) 31.6 20.0-40.0 [facility] CenterSbvjerbZZXWTPTALW2233-92-46 10:35:00 Test Item Value Reference Range Interpretation Comments Monocytes (test code = Monocytes) 14.1 2.0-12.0 [facility] CenterTibaovsNNCCAEZFET6818-27-12 10:35:00 Test Item Value Reference Range Interpretation Comments Eosinophils (test code = 2.6 See_Comment [A utomated message] The Eosinophils) system which ge nerated this result tra nsmitted reference range : <=4.0. The reference r leo was not used to int erpret this result as normal/abnormal . [facility] CenterRlmkibgQUYRLKVCGW1444-87-84 10:35:00 Test Item Value Reference Range Interpretation Comments Basophils (test code = 0.4 See_Comment [Aut omated message] The Basophils) system which ge nerated this result tra nsmitted reference range : <=1.0. The reference r leo was not used to int erpret this result as normal/abnormal . [facility] CenterAsaywqcAWXVFFRORM6140-35-69 10:35:00 Test Item Value Reference Range Interpretation Comments PB Smear Path Peripheral blood smear shows (test code = PB hypochromic normocytic Smear Path) anemia with anisopoikilocytsosis, no increase in schistocytes, slight polychromasia, a few estella cells, moderate thrombocytopenia. Impression: (1) no evidence of microangiopathic hemolysis, (2) RBC morphology is suggestive of anemia of chronic disease or iron deficiency anemia, and renal disease. CPT: 50917 [facility] CenterTbjtztcQEVZEKWVFM6558-19-53 10:35:00 Test Item Value Reference Range Interpretation Comments Hct (test code = Hct) 29.3 36.0-48.0 [facility] CenterDcfglgfPBUPSZXJYW5475-99-23 10:35:00 Test Item Value Reference Range Interpretation Comments Hgb (test code = Hgb) 9.2 12.0-16.0 [facility] CenterJsqmeamZHTUSJLIPH5952-49-48 10:35:00 Test Item Value Reference Range Interpretation Comments RBC (test code = RBC) 3.54 4.20-5.40 [facility] CenterJppjfooDTNPUWXAKD6185-54-49 10:35:00 Test Item Value Reference Range Interpretation Comments WBC (test code = WBC) 5.3 3.7-10.4 [facility] CenterVnltehtHXXUADRHFE8177-20-82 10:35:00 Test Item Value Reference Range Interpretation Comments Platelet (test code = Platelet) 87 133-450 [facility] CenterUigweggCLSRIXBGJR2818-34-40 10:35:00 Test Item Value Reference Range Interpretation Comments MCHC (test code = MCHC) 31.4 32.0-36.0 [facility] CenterZjndtfjAWBEWJARSB7969-31-91 10:35:00 Test Item Value Reference Range Interpretation Comments RDW (test code = RDW) 17.9 11.5-14.5 [facility] CenterAionrlgTHKMSBOWJR5190-27-03 10:35:00 Test Item Value Reference Range Interpretation Comments MPV (test code = MPV) 10.9 7.4-10.4 [facility] CenterKrktvfjMNQGBYOIZN8508-23-90 10:35:00 Test Item Value Reference Range Interpretation Comments MCH (test code = MCH) 26.0 pg 27.0-31.0 [facility] CenterNtnhpghABVXSGQKPU4211-04-68 10:35:00 Test Item Value Reference Range Interpretation Comments MCV (test code = MCV) 82.8 80.0-98.0 [facility] CenterZhkzkrzBWGTSZRKWQ8058-45-62 10:35:00 Test Item Value Reference Range Interpretation Comments HIV. (test code = Negative *NA*(07/28/16 HIV.) 4:35 AM) [facility] CenterCARDIAC STIQMHR9554-44-87 10:22:00 Test Item Value Reference Range Interpretation Comments Total CK (test code = Total CK) 190 12-191 [facility]2017-02-06 10:22:00 Test Item Value Reference Range Interpretation Comments Calcium Lvl (test code = Calcium Lvl) 7.8 8.5-10.5 [facility]2017-02-06 10:22:00 Test Item Value Reference Range Interpretation Comments CO2 (test code = CO2) 21 24-32 [facility]2017-02-06 10:22:00 Test Item Value Reference Range Interpretation Comments Sodium Lvl (test code = Sodium Lvl) 140 135-145 [facility]2017-02-06 10:22:00 Test Item Value Reference Range Interpretation Comments Potassium Lvl (test code = Potassium 3.8 3.5-5.1 Lvl) [facility]2017-02-06 10:22:00 Test Item Value Reference Range Interpretation Comments Chloride Lvl (test code = Chloride Lvl) 106 95-109 [facility]2017-02-06 10:22:00 Test Item Value Reference Range Interpretation Comments Bili Total (test code = Bili Total) 0.4 0.2-1.3 [facility]2017-02-06 10:22:00 Test Item Value Reference Range Interpretation Comments Alk Phos (test code = Alk Phos) 74 39-136 [facility]2017-02-06 10:22:00 Test Item Value Reference Range Interpretation Comments eGFR (test code = eGFR) 19 [facility]2017-02-06 10:22:00 Test Item Value Reference Range Interpretation Comments Total Protein (test code = Total 5.2 6.4-8.4 Protein) [facility]2017-02-06 10:22:00 Test Item Value Reference Range Interpretation Comments ALT (test code = ALT) 822 See_Comment [Auto mated message] The system which ge nerated this result transmit rohit reference range : <=65. The reference range was not used to interpr et this result as reji l/abnormal. [facility]2017-02-06 10:22:00 Test Item Value Reference Range Interpretation Comments AST (test code = AST) 205 See_Comment [Auto mated message] The system which ge nerated this result transmit rohit reference range : <=37. The reference range was not used to interpr et this result as reji l/abnormal. [facility]2017-02-06 10:22:00 Test Item Value Reference Range Interpretation Comments Albumin Lvl (test code = Albumin Lvl) 1.8 3.5-5.0 [facility]2017-02-06 10:22:00 Test Item Value Reference Range Interpretation Comments BUN (test code = BUN) 54 7-22 [facility]2017-02-06 10:22:00 Test Item Value Reference Range Interpretation Comments Glucose Lvl (test code = Glucose Lvl) 143 70-99 [facility]2017-02-06 10:22:00 Test Item Value Reference Range Interpretation Comments Creatinine Lvl (test code = Creatinine 3.11 0.50-1.40 Lvl) [facility]2017-02-06 10:22:00 Test Item Value Reference Range Interpretation Comments B/C Ratio (test code = B/C Ratio) 17 6-25 [facility]2017-02-06 10:22:00 Test Item Value Reference Range Interpretation Comments AGAP (test code = AGAP) 16.8 10.0-20.0 [facility]2017-02-06 10:22:00 Test Item Value Reference Range Interpretation Comments Globulin (test code = Globulin) 3.4 2.7-4.2 [facility]2017-02-06 10:22:00 Test Item Value Reference Range Interpretation Comments A/G Ratio (test code = A/G Ratio) 0.5 0.7-1.6 [facility]2017-02-06 10:22:00 Test Item Value Reference Range Interpretation Comments Magnesium Lvl (test code = Magnesium 2.0 1.8-2.4 Lvl) [facility]2017-02-06 10:22:00 Test Item Value Reference Range Interpretation Comments Phosphorus (test code = Phosphorus) 3.7 2.5-4.5 [facility]VtlbrevRVXALXDLZW1449-11-35 10:22:00 Test Item Value Reference Range Interpretation Comments RDW (test code = RDW) 17.7 11.5-14.5 [facility] CenterPukktljYYOFEDIDMV1311-95-60 10:22:00 Test Item Value Reference Range Interpretation Comments MCHC (test code = MCHC) 32.9 32.0-36.0 [facility] CenterAvwbicpQOGIFOONQG8953-02-78 10:22:00 Test Item Value Reference Range Interpretation Comments Hct (test code = Hct) 25.4 36.0-48.0 [facility] CenterAqaeawsHUZHQRJORK2734-08-40 10:22:00 Test Item Value Reference Range Interpretation Comments MCH (test code = MCH) 26.4 pg 27.0-31.0 [facility] CenterIokivpyJMTKQZZZDE5820-00-02 10:22:00 Test Item Value Reference Range Interpretation Comments MCV (test code = MCV) 80.3 80.0-98.0 [facility] CenterNkzvxuxHAXWCNQSOI0483-96-09 10:22:00 Test Item Value Reference Range Interpretation Comments MPV (test code = MPV) 11.4 7.4-10.4 [facility] CenterKbzkzujZWPMUTPIQQ7639-77-83 10:22:00 Test Item Value Reference Range Interpretation Comments Platelet (test code = Platelet) 74 133-450 [facility] CenterIbmydwdTZINDGPLAA9448-35-22 10:22:00 Test Item Value Reference Range Interpretation Comments RBC (test code = RBC) 3.16 4.20-5.40 [facility] CenterIbqjbxjROSTGSDQZB1673-68-65 10:22:00 Test Item Value Reference Range Interpretation Comments WBC (test code = WBC) 5.3 3.7-10.4 [facility] CenterQwelzfjMAYUVRIXIQ2487-76-50 10:22:00 Test Item Value Reference Range Interpretation Comments Hgb (test code = Hgb) 8.4 12.0-16.0 [facility] CenterBctnfqrZGDHSSASUW8498-71-35 10:22:00 Test Item Value Reference Range Interpretation Comments Monocytes (test code = Monocytes) 14.5 2.0-12.0 [facility] CenterMildbyqJHXARBYTWS2849-46-28 10:22:00 Test Item Value Reference Range Interpretation Comments Lymphocytes (test code = Lymphocytes) 29.8 20.0-40.0 [facility] CenterQvgcbprKSXGBMNJWD0480-44-22 10:22:00 Test Item Value Reference Range Interpretation Comments Eosinophils # (test code 0.1 See_Comment [A utomated message] The = Eosinophils #) system whic h generated this result tra nsmitted reference range : <=0.5. The reference r leo was not used to int erpret this result as normal/abnormal . [facility] CenterCrhnmzyGFKYTDTGGD3019-88-23 10:22:00 Test Item Value Reference Range Interpretation Comments Monocytes # (test code 0.8 See_Comment [Aut omated message] The = Monocytes #) system which generated this result tra nsmitted reference range : <=0.8. The reference r leo was not used to int erpret this result as normal/abnormal . [facility] CenterBkqjtznPDTLGTJKQV4428-94-42 10:22:00 Test Item Value Reference Range Interpretation Comments Segs-Bands # (test code = Segs-Bands #) 2.9 1.5-8.1 [facility]EkeltjmDPOFJHCLKA8387-66-33 10:22:00 Test Item Value Reference Range Interpretation Comments Lymphocytes # (test code = Lymphocytes 1.6 1.0-5.5 #) [facility] CenterSzacidsGAMZCFDVFO8821-68-97 10:22:00 Test Item Value Reference Range Interpretation Comments Basophils (test code = 0.4 See_Comment [Aut omated message] The Basophils) system which ge nerated this result tra nsmitted reference range : <=1.0. The reference r leo was not used to int erpret this result as normal/abnormal . [facility] CenterRljpovwVBVRIUPPJY7652-46-54 10:22:00 Test Item Value Reference Range Interpretation Comments Eosinophils (test code = 1.2 See_Comment [A utomated message] The Eosinophils) system which ge nerated this result tra nsmitted reference range : <=4.0. The reference r leo was not used to int erpret this result as normal/abnormal . [facility] HospitalEzrasadFSRAWIUVLX4403-95-93 10:22:00 Test Item Value Reference Range Interpretation Comments Segs (test code = Segs) 54.1 45.0-75.0 [facility]SPE[facility] YUHZVWXAK9340-18-06 10:22:00 Test Item Value Reference Range Interpretation Comments Hgb A1C (test code = Hgb A1C) 8.9 [facility] CenterCARDIAC [id number] 10:22:00 Test Item Value Reference Range Interpretation Comments Total CK (test code = Total CK) 190 12-191 [facility] CenterCHEM [id number] 10:22:00 Test Item Value Reference Range Interpretation Comments Calcium Lvl (test code = Calcium Lvl) 7.8 8.5-10.5 [facility] CenterATRI[facility]OLIN[facility] MED[facility] CENTERDKCIO6383-60-12 10:22:00 Test Item Value Reference Range Interpretation Comments CO2 (test code = CO2) 21 24-32 [facility]2017-02-06 10:22:00 Test Item Value Reference Range Interpretation Comments Sodium Lvl (test code = Sodium Lvl) 140 135-145 [facility]2017-02-06 10:22:00 Test Item Value Reference Range Interpretation Comments Potassium Lvl (test code = Potassium 3.8 3.5-5.1 Lvl) [facility]2017-02-06 10:22:00 Test Item Value Reference Range Interpretation Comments Chloride Lvl (test code = Chloride Lvl) 106 95-109 [facility]2017-02-06 10:22:00 Test Item Value Reference Range Interpretation Comments Bili Total (test code = Bili Total) 0.4 0.2-1.3 [facility]2017-02-06 10:22:00 Test Item Value Reference Range Interpretation Comments Alk Phos (test code = Alk Phos) 74 39-136 [facility]2017-02-06 10:22:00 Test Item Value Reference Range Interpretation Comments eGFR (test code = eGFR) 19 [facility]2017-02-06 10:22:00 Test Item Value Reference Range Interpretation Comments Total Protein (test code = Total 5.2 6.4-8.4 Protein) [facility]2017-02-06 10:22:00 Test Item Value Reference Range Interpretation Comments ALT (test code = ALT) 822 See_Comment [Auto mated message] The system which ge nerated this result transmit rohit reference range : <=65. The reference range was not used to interpr et this result as reji l/abnormal. [facility]2017-02-06 10:22:00 Test Item Value Reference Range Interpretation Comments AST (test code = AST) 205 See_Comment [Auto mated message] The system which ge nerated this result transmit rohit reference range : <=37. The reference range was not used to interpr et this result as reji l/abnormal. [facility]2017-02-06 10:22:00 Test Item Value Reference Range Interpretation Comments Albumin Lvl (test code = Albumin Lvl) 1.8 3.5-5.0 [facility]2017-02-06 10:22:00 Test Item Value Reference Range Interpretation Comments BUN (test code = BUN) 54 7-22 [facility]2017-02-06 10:22:00 Test Item Value Reference Range Interpretation Comments Glucose Lvl (test code = Glucose Lvl) 143 70-99 [facility]2017-02-06 10:22:00 Test Item Value Reference Range Interpretation Comments Creatinine Lvl (test code = Creatinine 3.11 0.50-1.40 Lvl) [facility]2017-02-06 10:22:00 Test Item Value Reference Range Interpretation Comments B/C Ratio (test code = B/C Ratio) 17 6-25 [facility]2017-02-06 10:22:00 Test Item Value Reference Range Interpretation Comments AGAP (test code = AGAP) 16.8 10.0-20.0 [facility]2017-02-06 10:22:00 Test Item Value Reference Range Interpretation Comments Globulin (test code = Globulin) 3.4 2.7-4.2 [facility]2017-02-06 10:22:00 Test Item Value Reference Range Interpretation Comments A/G Ratio (test code = A/G Ratio) 0.5 0.7-1.6 [facility]2017-02-06 10:22:00 Test Item Value Reference Range Interpretation Comments Magnesium Lvl (test code = Magnesium 2.0 1.8-2.4 Lvl) [facility]2017-02-06 10:22:00 Test Item Value Reference Range Interpretation Comments Phosphorus (test code = Phosphorus) 3.7 2.5-4.5 [facility] CenterQsyplgcOAQLZMGVCN4488-56-24 10:22:00 Test Item Value Reference Range Interpretation Comments RDW (test code = RDW) 17.7 11.5-14.5 [facility] CenterMoainhuJWOUEDCWMS1295-91-61 10:22:00 Test Item Value Reference Range Interpretation Comments MCHC (test code = MCHC) 32.9 32.0-36.0 [facility] CenterSfaahctNXSQSEUQOM0282-12-36 10:22:00 Test Item Value Reference Range Interpretation Comments Hct (test code = Hct) 25.4 36.0-48.0 [facility] CenterAfzvnldTEGLILGDVS0313-20-53 10:22:00 Test Item Value Reference Range Interpretation Comments MCH (test code = MCH) 26.4 pg 27.0-31.0 [facility] CenterTpoopnxVCVQPJTZSD7195-12-80 10:22:00 Test Item Value Reference Range Interpretation Comments MCV (test code = MCV) 80.3 80.0-98.0 [facility] CenterQsecyrfGZGRCBNTSK5817-59-91 10:22:00 Test Item Value Reference Range Interpretation Comments MPV (test code = MPV) 11.4 7.4-10.4 [facility] CenterDefthrlJANBVREXJF7337-71-55 10:22:00 Test Item Value Reference Range Interpretation Comments Platelet (test code = Platelet) 74 133-450 [facility] CenterQiqeqqtWWNHOUDVTH5237-73-18 10:22:00 Test Item Value Reference Range Interpretation Comments RBC (test code = RBC) 3.16 4.20-5.40 [facility] CenterScvuvalAOYPZEPVEG0009-36-40 10:22:00 Test Item Value Reference Range Interpretation Comments WBC (test code = WBC) 5.3 3.7-10.4 [facility] CenterJdbxqbeGWFHNLVRHM9383-79-56 10:22:00 Test Item Value Reference Range Interpretation Comments Hgb (test code = Hgb) 8.4 12.0-16.0 [facility] CenterHjhkceyPXFKKAQNXE3052-64-44 10:22:00 Test Item Value Reference Range Interpretation Comments Monocytes (test code = Monocytes) 14.5 2.0-12.0 [facility] CenterPzruovwKJFPHQHSXD9555-82-03 10:22:00 Test Item Value Reference Range Interpretation Comments Lymphocytes (test code = Lymphocytes) 29.8 20.0-40.0 [facility] CenterJhguvxbKNMYNULADJ8954-59-56 10:22:00 Test Item Value Reference Range Interpretation Comments Eosinophils # (test code 0.1 See_Comment [A utomated message] The = Eosinophils #) system whic h generated this result tra nsmitted reference range : <=0.5. The reference r leo was not used to int erpret this result as normal/abnormal . [facility] CenterCokjnhjALOFSBKZVO3065-98-11 10:22:00 Test Item Value Reference Range Interpretation Comments Monocytes # (test code 0.8 See_Comment [Aut omated message] The = Monocytes #) system which generated this result tra nsmitted reference range : <=0.8. The reference r leo was not used to int erpret this result as normal/abnormal . [facility] CenterFwtmvvtTFNVIPLULN9949-97-94 10:22:00 Test Item Value Reference Range Interpretation Comments Segs-Bands # (test code = Segs-Bands #) 2.9 1.5-8.1 [facility] HospitalDqeuxkrLPUVUHVJLR1222-01-02 10:22:00 Test Item Value Reference Range Interpretation Comments Lymphocytes # (test code = Lymphocytes 1.6 1.0-5.5 #) [facility] HospitalKidntkqSBSXTIRLGG4754-13-05 10:22:00 Test Item Value Reference Range Interpretation Comments Basophils (test code = 0.4 See_Comment [Aut omated message] The Basophils) system which ge nerated this result tra nsmitted reference range : <=1.0. The reference r leo was not used to int erpret this result as normal/abnormal . [facility] CenterTtmapfnRTPHYMDETW4219-43-15 10:22:00 Test Item Value Reference Range Interpretation Comments Eosinophils (test code = 1.2 See_Comment [A utomated message] The Eosinophils) system which ge nerated this result tra nsmitted reference range : <=4.0. The reference r leo was not used to int erpret this result as normal/abnormal . [facility] CenterUtoetucJDBLVTQEJM3263-31-04 10:22:00 Test Item Value Reference Range Interpretation Comments Segs (test code = Segs) 54.1 45.0-75.0 [facility] CenterSPECIAL EOSQSBWZL2249-52-46 10:22:00 Test Item Value Reference Range Interpretation Comments Hgb A1C (test code = Hgb A1C) 8.9 [facility] CenterCARDIAC CVHKCEW8217-96-54 10:22:00 Test Item Value Reference Range Interpretation Comments Total CK (test code = Total CK) 190 12-191 [facility] CenterCHEM [id number] 10:22:00 Test Item Value Reference Range Interpretation Comments Calcium Lvl (test code = Calcium Lvl) 7.8 8.5-10.5 [facility] CenterannCHEM [id number] 10:22:00 Test Item Value Reference Range Interpretation Comments CO2 (test code = CO2) 21 24-32 [facility] CenterTechnimotion [id number] 10:22:00 Test Item Value Reference Range Interpretation Comments Sodium Lvl (test code = Sodium Lvl) 140 135-145 [facility]2017-02-06 10:22:00 Test Item Value Reference Range Interpretation Comments Potassium Lvl (test code = Potassium 3.8 3.5-5.1 Lvl) [facility]2017-02-06 10:22:00 Test Item Value Reference Range Interpretation Comments Chloride Lvl (test code = Chloride Lvl) 106 95-109 [facility]2017-02-06 10:22:00 Test Item Value Reference Range Interpretation Comments Bili Total (test code = Bili Total) 0.4 0.2-1.3 [facility]2017-02-06 10:22:00 Test Item Value Reference Range Interpretation Comments Alk Phos (test code = Alk Phos) 74 39-136 [facility]2017-02-06 10:22:00 Test Item Value Reference Range Interpretation Comments eGFR (test code = eGFR) 19 [facility]2017-02-06 10:22:00 Test Item Value Reference Range Interpretation Comments Total Protein (test code = Total 5.2 6.4-8.4 Protein) [facility]2017-02-06 10:22:00 Test Item Value Reference Range Interpretation Comments ALT (test code = ALT) 822 See_Comment [Auto mated message] The system which ge nerated this result transmit orhit reference range : <=65. The reference range was not used to interpr et this result as reji l/abnormal. [facility]2017-02-06 10:22:00 Test Item Value Reference Range Interpretation Comments AST (test code = AST) 205 See_Comment [Auto mated message] The system which ge nerated this result transmit rohit reference range : <=37. The reference range was not used to interpr et this result as reji l/abnormal. [facility]2017-02-06 10:22:00 Test Item Value Reference Range Interpretation Comments Albumin Lvl (test code = Albumin Lvl) 1.8 3.5-5.0 [facility]2017-02-06 10:22:00 Test Item Value Reference Range Interpretation Comments BUN (test code = BUN) 54 7-22 [facility]2017-02-06 10:22:00 Test Item Value Reference Range Interpretation Comments Glucose Lvl (test code = Glucose Lvl) 143 70-99 [facility]2017-02-06 10:22:00 Test Item Value Reference Range Interpretation Comments Creatinine Lvl (test code = Creatinine 3.11 0.50-1.40 Lvl) [facility]2017-02-06 10:22:00 Test Item Value Reference Range Interpretation Comments B/C Ratio (test code = B/C Ratio) 17 6-25 [facility]2017-02-06 10:22:00 Test Item Value Reference Range Interpretation Comments AGAP (test code = AGAP) 16.8 10.0-20.0 [facility]2017-02-06 10:22:00 Test Item Value Reference Range Interpretation Comments Globulin (test code = Globulin) 3.4 2.7-4.2 [facility]2017-02-06 10:22:00 Test Item Value Reference Range Interpretation Comments A/G Ratio (test code = A/G Ratio) 0.5 0.7-1.6 [facility]2017-02-06 10:22:00 Test Item Value Reference Range Interpretation Comments Magnesium Lvl (test code = Magnesium 2.0 1.8-2.4 Lvl) [facility]2017-02-06 10:22:00 Test Item Value Reference Range Interpretation Comments Phosphorus (test code = Phosphorus) 3.7 2.5-4.5 [facility] CenterIknzedfSZEOLDLVTE4860-73-38 10:22:00 Test Item Value Reference Range Interpretation Comments RDW (test code = RDW) 17.7 11.5-14.5 [facility] CenterUwjdzxeFAKEZCBFGW9462-28-86 10:22:00 Test Item Value Reference Range Interpretation Comments MCHC (test code = MCHC) 32.9 32.0-36.0 [facility] CenterWknvlcwICWBUIETIT9407-58-86 10:22:00 Test Item Value Reference Range Interpretation Comments Hct (test code = Hct) 25.4 36.0-48.0 [facility] CenterAwlfjoiTQCHCUEHKO7232-95-49 10:22:00 Test Item Value Reference Range Interpretation Comments MCH (test code = MCH) 26.4 pg 27.0-31.0 [facility] CenterIlhycecPCNASPFVNI8495-85-88 10:22:00 Test Item Value Reference Range Interpretation Comments MCV (test code = MCV) 80.3 80.0-98.0 [facility] CenterBzpqtasYPENPJTXYR9470-13-77 10:22:00 Test Item Value Reference Range Interpretation Comments MPV (test code = MPV) 11.4 7.4-10.4 [facility] CenterNcbaoqxKDLFLIWJWY2444-89-12 10:22:00 Test Item Value Reference Range Interpretation Comments Platelet (test code = Platelet) 74 133-450 [facility] CenterQlgpwvlCFMVBTHRUC4597-53-95 10:22:00 Test Item Value Reference Range Interpretation Comments RBC (test code = RBC) 3.16 4.20-5.40 [facility] CenterNolbqeqXXAWBLAMQT5013-69-32 10:22:00 Test Item Value Reference Range Interpretation Comments WBC (test code = WBC) 5.3 3.7-10.4 [facility] CenterLwbiuqiMNSGYQIZVI0037-68-88 10:22:00 Test Item Value Reference Range Interpretation Comments Hgb (test code = Hgb) 8.4 12.0-16.0 [facility] CenterPhvickxDLLMLZZGWO5288-23-45 10:22:00 Test Item Value Reference Range Interpretation Comments Monocytes (test code = Monocytes) 14.5 2.0-12.0 [facility] CenterDkgexkzIYCVDLFVMB9653-65-30 10:22:00 Test Item Value Reference Range Interpretation Comments Lymphocytes (test code = Lymphocytes) 29.8 20.0-40.0 [facility] CenterZxsmdyyTMZCPGCCCM1991-40-86 10:22:00 Test Item Value Reference Range Interpretation Comments Eosinophils # (test code 0.1 See_Comment [A utomated message] The = Eosinophils #) system whic h generated this result tra nsmitted reference range : <=0.5. The reference r leo was not used to int erpret this result as normal/abnormal . [facility] CenterAkoxkdhHWBYPDKWTB7320-86-86 10:22:00 Test Item Value Reference Range Interpretation Comments Monocytes # (test code 0.8 See_Comment [Aut omated message] The = Monocytes #) system which generated this result tra nsmitted reference range : <=0.8. The reference r leo was not used to int erpret this result as normal/abnormal . [facility] CenterQvnvfubIYYOZPPHLT8583-46-21 10:22:00 Test Item Value Reference Range Interpretation Comments Segs-Bands # (test code = Segs-Bands #) 2.9 1.5-8.1 [facility] CenterYxrpwgvWMCXSHQGZR5192-03-43 10:22:00 Test Item Value Reference Range Interpretation Comments Lymphocytes # (test code = Lymphocytes 1.6 1.0-5.5 #) [facility] CenterAlouoklHUMHTXLOPU7826-41-74 10:22:00 Test Item Value Reference Range Interpretation Comments Basophils (test code = 0.4 See_Comment [Aut omated message] The Basophils) system which ge nerated this result tra nsmitted reference range : <=1.0. The reference r leo was not used to int erpret this result as normal/abnormal . [facility] CenterJnzlfpuMLFTWUFYUQ4239-41-47 10:22:00 Test Item Value Reference Range Interpretation Comments Eosinophils (test code = 1.2 See_Comment [A utomated message] The Eosinophils) system which ge nerated this result tra nsmitted reference range : <=4.0. The reference r leo was not used to int erpret this result as normal/abnormal . [facility] HospitalFgbemcqJOGWNIJVWS1154-76-60 10:22:00 Test Item Value Reference Range Interpretation Comments Segs (test code = Segs) 54.1 45.0-75.0 [facility] CenterSPECIAL TJKTNZZJR9113-12-37 10:22:00 Test Item Value Reference Range Interpretation Comments Hgb A1C (test code = Hgb A1C) 8.9 [facility] CenterCARDIAC WBASFZK9403-20-27 10:22:00 Test Item Value Reference Range Interpretation Comments Total CK (test code = Total CK) 190 12-191 [facility] CenterCHEM ZYXBD0612-32-05 10:22:00 Test Item Value Reference Range Interpretation Comments Calcium Lvl (test code = Calcium Lvl) 7.8 8.5-10.5 [facility] CenterCHEM [id number] 10:22:00 Test Item Value Reference Range Interpretation Comments CO2 (test code = CO2) 21 24-32 [facility] CenterVetCompareCHEM [id number] 10:22:00 Test Item Value Reference Range Interpretation Comments Sodium Lvl (test code = Sodium Lvl) 140 135-145 [facility] CenterSnappyTV OZGXH2701-27-45 10:22:00 Test Item Value Reference Range Interpretation Comments Potassium Lvl (test code = Potassium 3.8 3.5-5.1 Lvl) [facility] CenterSnappyTV [id number] 10:22:00 Test Item Value Reference Range Interpretation Comments Chloride Lvl (test code = Chloride Lvl) 106 95-109 [facility]2017-02-06 10:22:00 Test Item Value Reference Range Interpretation Comments Bili Total (test code = Bili Total) 0.4 0.2-1.3 [facility]2017-02-06 10:22:00 Test Item Value Reference Range Interpretation Comments Alk Phos (test code = Alk Phos) 74 39-136 [facility]2017-02-06 10:22:00 Test Item Value Reference Range Interpretation Comments eGFR (test code = eGFR) 19 [facility]2017-02-06 10:22:00 Test Item Value Reference Range Interpretation Comments Total Protein (test code = Total 5.2 6.4-8.4 Protein) [facility]2017-02-06 10:22:00 Test Item Value Reference Range Interpretation Comments ALT (test code = ALT) 822 See_Comment [Auto mated message] The system which ge nerated this result transmit rohit reference range : <=65. The reference range was not used to interpr et this result as reji l/abnormal. [facility]2017-02-06 10:22:00 Test Item Value Reference Range Interpretation Comments AST (test code = AST) 205 See_Comment [Auto mated message] The system which ge nerated this result transmit rohit reference range : <=37. The reference range was not used to interpr et this result as reji l/abnormal. [facility]2017-02-06 10:22:00 Test Item Value Reference Range Interpretation Comments Albumin Lvl (test code = Albumin Lvl) 1.8 3.5-5.0 [facility]2017-02-06 10:22:00 Test Item Value Reference Range Interpretation Comments BUN (test code = BUN) 54 7-22 [facility]2017-02-06 10:22:00 Test Item Value Reference Range Interpretation Comments Glucose Lvl (test code = Glucose Lvl) 143 70-99 [facility]2017-02-06 10:22:00 Test Item Value Reference Range Interpretation Comments Creatinine Lvl (test code = Creatinine 3.11 0.50-1.40 Lvl) [facility]2017-02-06 10:22:00 Test Item Value Reference Range Interpretation Comments B/C Ratio (test code = B/C Ratio) 17 6-25 [facility]2017-02-06 10:22:00 Test Item Value Reference Range Interpretation Comments AGAP (test code = AGAP) 16.8 10.0-20.0 [facility]2017-02-06 10:22:00 Test Item Value Reference Range Interpretation Comments Globulin (test code = Globulin) 3.4 2.7-4.2 [facility]2017-02-06 10:22:00 Test Item Value Reference Range Interpretation Comments A/G Ratio (test code = A/G Ratio) 0.5 0.7-1.6 [facility]2017-02-06 10:22:00 Test Item Value Reference Range Interpretation Comments Magnesium Lvl (test code = Magnesium 2.0 1.8-2.4 Lvl) [facility]2017-02-06 10:22:00 Test Item Value Reference Range Interpretation Comments Phosphorus (test code = Phosphorus) 3.7 2.5-4.5 [facility]TgwclvdXSACLLWOAP0383-53-03 10:22:00 Test Item Value Reference Range Interpretation Comments RDW (test code = RDW) 17.7 11.5-14.5 [facility] CenterTimaijtCYEJSPZHPX9554-61-00 10:22:00 Test Item Value Reference Range Interpretation Comments MCHC (test code = MCHC) 32.9 32.0-36.0 [facility] CenterCaogstzJFWFLVJVHP3430-58-04 10:22:00 Test Item Value Reference Range Interpretation Comments Hct (test code = Hct) 25.4 36.0-48.0 [facility] CenterJbjotveKZLFSUULZX5616-14-14 10:22:00 Test Item Value Reference Range Interpretation Comments MCH (test code = MCH) 26.4 pg 27.0-31.0 [facility] CenterNcnjwajVWYOTWQGKP4091-55-12 10:22:00 Test Item Value Reference Range Interpretation Comments MCV (test code = MCV) 80.3 80.0-98.0 [facility] CenterDhkjyghIJOUAVYFVI5347-85-53 10:22:00 Test Item Value Reference Range Interpretation Comments MPV (test code = MPV) 11.4 7.4-10.4 [facility] CenterQozrtdzNVHIPFTODP2171-79-04 10:22:00 Test Item Value Reference Range Interpretation Comments Platelet (test code = Platelet) 74 133-450 [facility] CenterZobyqjhCYJAGIUJGK2010-35-64 10:22:00 Test Item Value Reference Range Interpretation Comments RBC (test code = RBC) 3.16 4.20-5.40 [facility] CenterUqyhxvmGLWBUROGKD9632-14-33 10:22:00 Test Item Value Reference Range Interpretation Comments WBC (test code = WBC) 5.3 3.7-10.4 [facility] CenterNpyxeysVXSLVQJVHR4924-77-88 10:22:00 Test Item Value Reference Range Interpretation Comments Hgb (test code = Hgb) 8.4 12.0-16.0 [facility] CenterWrtwiqcIXNFOMTKYQ4065-45-19 10:22:00 Test Item Value Reference Range Interpretation Comments Monocytes (test code = Monocytes) 14.5 2.0-12.0 [facility] CenterIckrcioEOPZLEVPYM4215-28-46 10:22:00 Test Item Value Reference Range Interpretation Comments Lymphocytes (test code = Lymphocytes) 29.8 20.0-40.0 [facility] CenterYchgmkjSDYOPUXIUZ3186-71-24 10:22:00 Test Item Value Reference Range Interpretation Comments Eosinophils # (test code 0.1 See_Comment [A utomated message] The = Eosinophils #) system whic h generated this result tra nsmitted reference range : <=0.5. The reference r leo was not used to int erpret this result as normal/abnormal . [facility] CenterOmzfzxeXNGJXRDBLA7409-60-42 10:22:00 Test Item Value Reference Range Interpretation Comments Monocytes # (test code 0.8 See_Comment [Aut omated message] The = Monocytes #) system which generated this result tra nsmitted reference range : <=0.8. The reference r leo was not used to int erpret this result as normal/abnormal . [facility] CenterYmivtpbTPJXURCDQX1064-31-22 10:22:00 Test Item Value Reference Range Interpretation Comments Segs-Bands # (test code = Segs-Bands #) 2.9 1.5-8.1 [facility] CenterZnglwmmVPXFVDEVLY3180-31-95 10:22:00 Test Item Value Reference Range Interpretation Comments Lymphocytes # (test code = Lymphocytes 1.6 1.0-5.5 #) [facility] CenterXgwnkzaDQPFEJGKCT1220-58-42 10:22:00 Test Item Value Reference Range Interpretation Comments Basophils (test code = 0.4 See_Comment [Aut omated message] The Basophils) system which ge nerated this result tra nsmitted reference range : <=1.0. The reference r leo was not used to int erpret this result as normal/abnormal . [facility]GrlopttLRIPSJQOMQ2850-98-71 10:22:00 Test Item Value Reference Range Interpretation Comments Eosinophils (test code = 1.2 See_Comment [A utomated message] The Eosinophils) system which ge nerated this result tra nsmitted reference range : <=4.0. The reference r leo was not used to int erpret this result as normal/abnormal . [facility] CenterOseorylFUNSAJYVDY6196-71-16 10:22:00 Test Item Value Reference Range Interpretation Comments Segs (test code = Segs) 54.1 45.0-75.0 [facility] VDXHCDXGW4281-75-33 10:22:00 Test Item Value Reference Range Interpretation Comments Hgb A1C (test code = Hgb A1C) 8.9 [facility] CenterCARDIAC MQHSKKR9521-75-63 10:22:00 Test Item Value Reference Range Interpretation Comments Total CK (test code = Total CK) 190 12-191 [facility] CenterVetCompareCHEM YJQEI6602-88-51 10:22:00 Test Item Value Reference Range Interpretation Comments Calcium Lvl (test code = Calcium Lvl) 7.8 8.5-10.5 [facility] CenterTechnimotion MXMEH7668-22-01 10:22:00 Test Item Value Reference Range Interpretation Comments CO2 (test code = CO2) 21 24-32 [facility] CenterTechnimotion LGPWS4829-43-40 10:22:00 Test Item Value Reference Range Interpretation Comments Sodium Lvl (test code = Sodium Lvl) 140 135-145 [facility] CenterTechnimotion YRJJW5284-60-31 10:22:00 Test Item Value Reference Range Interpretation Comments Potassium Lvl (test code = Potassium 3.8 3.5-5.1 Lvl) [facility] CenterTechnimotion [id number] 10:22:00 Test Item Value Reference Range Interpretation Comments Chloride Lvl (test code = Chloride Lvl) 106 95-109 [facility] CenterTechnimotion HPGHQ8010-99-82 10:22:00 Test Item Value Reference Range Interpretation Comments Bili Total (test code = Bili Total) 0.4 0.2-1.3 [facility]2017-02-06 10:22:00 Test Item Value Reference Range Interpretation Comments Alk Phos (test code = Alk Phos) 74 39-136 [facility]2017-02-06 10:22:00 Test Item Value Reference Range Interpretation Comments eGFR (test code = eGFR) 19 [facility]2017-02-06 10:22:00 Test Item Value Reference Range Interpretation Comments Total Protein (test code = Total 5.2 6.4-8.4 Protein) [facility]2017-02-06 10:22:00 Test Item Value Reference Range Interpretation Comments ALT (test code = ALT) 822 See_Comment [Auto mated message] The system which ge nerated this result transmit rohit reference range : <=65. The reference range was not used to interpr et this result as reji l/abnormal. [facility]2017-02-06 10:22:00 Test Item Value Reference Range Interpretation Comments AST (test code = AST) 205 See_Comment [Auto mated message] The system which ge nerated this result transmit rohit reference range : <=37. The reference range was not used to interpr et this result as reji l/abnormal. [facility]2017-02-06 10:22:00 Test Item Value Reference Range Interpretation Comments Albumin Lvl (test code = Albumin Lvl) 1.8 3.5-5.0 [facility]2017-02-06 10:22:00 Test Item Value Reference Range Interpretation Comments BUN (test code = BUN) 54 7-22 [facility]2017-02-06 10:22:00 Test Item Value Reference Range Interpretation Comments Glucose Lvl (test code = Glucose Lvl) 143 70-99 [facility]2017-02-06 10:22:00 Test Item Value Reference Range Interpretation Comments Creatinine Lvl (test code = Creatinine 3.11 0.50-1.40 Lvl) [facility]2017-02-06 10:22:00 Test Item Value Reference Range Interpretation Comments B/C Ratio (test code = B/C Ratio) 17 6-25 [facility]2017-02-06 10:22:00 Test Item Value Reference Range Interpretation Comments AGAP (test code = AGAP) 16.8 10.0-20.0 [place] 743267-02-06 10:22:00 Test Item Value Reference Range Interpretation Comments Globulin (test code = Globulin) 3.4 2.7-4.2 [facility]2017-02-06 10:22:00 Test Item Value Reference Range Interpretation Comments A/G Ratio (test code = A/G Ratio) 0.5 0.7-1.6 [facility]2017-02-06 10:22:00 Test Item Value Reference Range Interpretation Comments Magnesium Lvl (test code = Magnesium 2.0 1.8-2.4 Lvl) [facility]2017-02-06 10:22:00 Test Item Value Reference Range Interpretation Comments Phosphorus (test code = Phosphorus) 3.7 2.5-4.5 [facility] CenterHwlsavwCXIUQBIEMX4029-84-01 10:22:00 Test Item Value Reference Range Interpretation Comments RDW (test code = RDW) 17.7 11.5-14.5 [facility] CenterMomujmgVMKWYELALU8327-39-07 10:22:00 Test Item Value Reference Range Interpretation Comments MCHC (test code = MCHC) 32.9 32.0-36.0 [facility] CenterUtsjutlNWMVIISHAJ8114-15-81 10:22:00 Test Item Value Reference Range Interpretation Comments Hct (test code = Hct) 25.4 36.0-48.0 [facility] CenterTzbiotzZNLBTIZOFZ5525-15-31 10:22:00 Test Item Value Reference Range Interpretation Comments MCH (test code = MCH) 26.4 pg 27.0-31.0 [facility] CenterNtlcbwkYCTQRPLVWP1929-15-60 10:22:00 Test Item Value Reference Range Interpretation Comments MCV (test code = MCV) 80.3 80.0-98.0 [facility] CenterEqnzdmeWYNRUEETIE9964-54-09 10:22:00 Test Item Value Reference Range Interpretation Comments MPV (test code = MPV) 11.4 7.4-10.4 [facility] CenterJuxmdcaJUBDTRFBPP8225-56-82 10:22:00 Test Item Value Reference Range Interpretation Comments Platelet (test code = Platelet) 74 133-450 [facility] CenterTjwvfdpWPJSPJXSUN5232-38-73 10:22:00 Test Item Value Reference Range Interpretation Comments RBC (test code = RBC) 3.16 4.20-5.40 [facility] CenterVcwmadcTFDTYCZADS3460-26-24 10:22:00 Test Item Value Reference Range Interpretation Comments WBC (test code = WBC) 5.3 3.7-10.4 [facility] CenterAbseykpNDFSNDONQG3904-40-33 10:22:00 Test Item Value Reference Range Interpretation Comments Hgb (test code = Hgb) 8.4 12.0-16.0 [facility] CenterLnfmronUENYOFGFAQ0242-47-13 10:22:00 Test Item Value Reference Range Interpretation Comments Monocytes (test code = Monocytes) 14.5 2.0-12.0 [facility] CenterVmautvqULRQLJXPNJ6310-45-96 10:22:00 Test Item Value Reference Range Interpretation Comments Lymphocytes (test code = Lymphocytes) 29.8 20.0-40.0 [facility] CenterOewhsvcLVFOUFPOXL1508-70-63 10:22:00 Test Item Value Reference Range Interpretation Comments Eosinophils # (test code 0.1 See_Comment [A utomated message] The = Eosinophils #) system whic h generated this result tra nsmitted reference range : <=0.5. The reference r leo was not used to int erpret this result as normal/abnormal . [facility] CenterNeharueYTMSXXOCCK4995-88-36 10:22:00 Test Item Value Reference Range Interpretation Comments Monocytes # (test code 0.8 See_Comment [Aut omated message] The = Monocytes #) system which generated this result tra nsmitted reference range : <=0.8. The reference r leo was not used to int erpret this result as normal/abnormal . [facility] CenterBnaqwstTOUEODFOVB5093-46-81 10:22:00 Test Item Value Reference Range Interpretation Comments Segs-Bands # (test code = Segs-Bands #) 2.9 1.5-8.1 [facility] CenterGminzpsOJEVFVRMSA8760-75-01 10:22:00 Test Item Value Reference Range Interpretation Comments Lymphocytes # (test code = Lymphocytes 1.6 1.0-5.5 #) [facility] CenterBmiccthYVUTTPRHDM6739-89-99 10:22:00 Test Item Value Reference Range Interpretation Comments Basophils (test code = 0.4 See_Comment [Aut omated message] The Basophils) system which ge nerated this result tra nsmitted reference range : <=1.0. The reference r leo was not used to int erpret this result as normal/abnormal . [facility] CenterZeegajhPSUAFLAWLL1896-78-17 10:22:00 Test Item Value Reference Range Interpretation Comments Eosinophils (test code = 1.2 See_Comment [A utomated message] The Eosinophils) system which ge nerated this result tra nsmitted reference range : <=4.0. The reference r leo was not used to int erpret this result as normal/abnormal . [facility] CenterAztbyqbFQTPZKKFNP0772-58-66 10:22:00 Test Item Value Reference Range Interpretation Comments Segs (test code = Segs) 54.1 45.0-75.0 [facility] CenterSPECIAL XFIIDCNPC6188-02-76 10:22:00 Test Item Value Reference Range Interpretation Comments Hgb A1C (test code = Hgb A1C) 8.9 [facility] CenterCARDIAC [id number] 17:40:00 Test Item Value Reference Range Interpretation Comments Total CK (test code = Total CK) 344 12-191 [facility] CenterEfaotpqMWADXLBGZU6758-27-70 17:40:00 Test Item Value Reference Range Interpretation Comments IVETET (test code = IVETTE) Positive *ABN*(07/26/16 11:40 AM) [facility] CenterVhuioguSRSLRWTOCT0964-80-27 17:40:00 Test Item Value Reference Range Interpretation Comments [employer] Ab (test code = [employer] Ab) no gt [facility] CenterFnmkizxMNJWWVNWDU0946-14-64 17:40:00 Test Item Value Reference Range Interpretation Comments Sm Ab (test code = Sm Ab) no [facility]MobjguhWTIMADZIFP3500-66-19 17:40:00 Test Item Value Reference Range Interpretation Comments IVETTE Interp (test code Pattern appears = IVETTE Interp) Nucleolar. [facility] CenterBnvnrscBMMMQQHPYE3186-65-10 17:40:00 Test Item Value Reference Range Interpretation Comments SS-B (La) Ab (test code = SS-B (La) Ab) no [facility] HospitalPvdijorUFRDFYRIRS2458-29-49 17:40:00 Test Item Value Reference Range Interpretation Comments SS-A (Ro) Ab (test code = SS-A (Ro) Ab) no [facility] HospitalMkkvrjiKRVEORXGFH0734-79-36 17:40:00 Test Item Value Reference Range Interpretation Comments DNA Ab (DS) (test Negative (07/26/16 11:40 code = DNA Ab (DS)) AM) [facility] CenterRlltyoeZRAVEWZHNG4539-47-24 17:40:00 Test Item Value Reference Range Interpretation Comments IVETTE Titer (test code = 1:40 *ABN*(07/26/16 IVETTE Titer) 11:40 AM) [facility] [id number] 17:40:00 Test Item Value Reference Range Interpretation Comments U Sodium (test code = U Sodium) 21 [facility] CenterannCAREPH[facility] BVKECVB8901-62-39 17:40:00 Test Item Value Reference Range Interpretation Comments Total CK (test code = Total CK) 344 12-191 [facility] JwghzknXWNQYNXBAV2551-69-29 17:40:00 Test Item Value Reference Range Interpretation Comments IVETTE (test code = IVETTE) Positive *ABN*(07/26/16 11:40 AM) [facility] CenterBoymtpbNJPBODKLXQ6799-84-55 17:40:00 Test Item Value Reference Range Interpretation Comments [employer] Ab (test code = [employer] Ab) no gt [facility] CenterLmhvhofKHXWMJBKUL0067-57-05 17:40:00 Test Item Value Reference Range Interpretation Comments Sm Ab (test code = Sm Ab) no gt [facility] CenterFaazwhgPWDKSKEJYA5910-38-28 17:40:00 Test Item Value Reference Range Interpretation Comments IVETTE Interp (test code Pattern appears = IVETTE Interp) Nucleolar. [facility] CenterNcvmwgqYHZCJOBFRO5085-06-56 17:40:00 Test Item Value Reference Range Interpretation Comments SS-B (La) Ab (test code = SS-B (La) Ab) no gt [facility] CenterHzbuhyrQIGPIXJNNU2551-29-22 17:40:00 Test Item Value Reference Range Interpretation Comments SS-A (Ro) Ab (test code = SS-A (Ro) Ab) no gt [facility] CenterLdljnmbBEXOEKBHQQ0399-09-37 17:40:00 Test Item Value Reference Range Interpretation Comments DNA Ab (DS) (test Negative (07/26/16 11:40 code = DNA Ab (DS)) AM) [facility] CenterBywuvgjPAVBTHWRWU5904-14-42 17:40:00 Test Item Value Reference Range Interpretation Comments IVETTE Titer (test code = 1:40 *ABN*(07/26/16 IVETTE Titer) 11:40 AM) [facility] [id number] 17:40:00 Test Item Value Reference Range Interpretation Comments U Sodium (test code = U Sodium) 21 [facility] CenterCARE[facility] HZYPRYB0044-72-00 17:40:00 Test Item Value Reference Range Interpretation Comments Total CK (test code = Total CK) 344 12-191 [facility] GffxsrsNEVGYAWKLG6073-78-46 17:40:00 Test Item Value Reference Range Interpretation Comments IVETTE (test code = IVETTE) Positive *ABN*(07/26/16 11:40 AM) [facility] ClhrymnXUOOTHDWWB7718-04-01 17:40:00 Test Item Value Reference Range Interpretation Comments [employer] Ab (test code = [employer] Ab) no gt [facility] LcrnymtPSZMTTMTOJ5834-19-73 17:40:00 Test Item Value Reference Range Interpretation Comments Sm Ab (test code = Sm Ab) no gt [facility] AiwauhxFRQQIDGXSS8434-75-36 17:40:00 Test Item Value Reference Range Interpretation Comments IVETTE Interp (test code Pattern appears = IVETTE Interp) Nucleolar. [facility] WxfugnpEJGXKTHOTL6982-88-72 17:40:00 Test Item Value Reference Range Interpretation Comments SS-B (La) Ab (test code = SS-B (La) Ab) no gt [facility] GsbjsdiABSFLKUGBA5360-57-43 17:40:00 Test Item Value Reference Range Interpretation Comments SS-A (Ro) Ab (test code = SS-A (Ro) Ab) no gt [facility] NofafbqGXAGPACYVA1379-59-80 17:40:00 Test Item Value Reference Range Interpretation Comments DNA Ab (DS) (test Negative (07/26/16 11:40 code = DNA Ab (DS)) AM) [facility] DlbdcxzOGQUFSQVHJ9618-83-73 17:40:00 Test Item Value Reference Range Interpretation Comments IVETTE Titer (test code = 1:40 *ABN*(07/26/16 IVETTE Titer) 11:40 AM) [facility] CenterannURINE [id number] 17:40:00 Test Item Value Reference Range Interpretation Comments U Sodium (test code = U Sodium) 21 [facility] CenterannCARDIAC INRLPFP8656-02-35 17:40:00 Test Item Value Reference Range Interpretation Comments Total CK (test code = Total CK) 344 191 [facility] EgjibdjGFFNNQKEPZ7245-98-54 17:40:00 Test Item Value Reference Range Interpretation Comments IVETTE (test code = IVETTE) Positive *ABN*(07/26/16 11:40 AM) [facility] SxwwnxuVVEITYJEXH6845-86-27 17:40:00 Test Item Value Reference Range Interpretation Comments [employer] Ab (test code = [employer] Ab) no gt [facility] MbdwxdhJBKNZRXIOT6852-30-66 17:40:00 Test Item Value Reference Range Interpretation Comments Sm Ab (test code = Sm Ab) no gt [facility] HwejsovXESBSQCTIT8298-89-58 17:40:00 Test Item Value Reference Range Interpretation Comments IEVTTE Interp (test code Pattern appears = IVETTE Interp) Nucleolar. [facility] CenterQbepuliNMRXHNYQNB6958-81-22 17:40:00 Test Item Value Reference Range Interpretation Comments SS-B (La) Ab (test code = SS-B (La) Ab) no gt [facility] SpuqsorVSLUPHQLDH7873-40-31 17:40:00 Test Item Value Reference Range Interpretation Comments SS-A (Ro) Ab (test code = SS-A (Ro) Ab) no [facility] GjsatvaVCWKJWFUXB5734-19-13 17:40:00 Test Item Value Reference Range Interpretation Comments DNA Ab (DS) (test Negative (07/26/16 11:40 code = DNA Ab (DS)) AM) [facility] CenterOpqnjghHPZMESYNDU7553-02-46 17:40:00 Test Item Value Reference Range Interpretation Comments IVETTE Titer (test code = 1:40 *ABN*(07/26/16 IVETTE Titer) 11:40 AM) [facility] CenterURINE NYGJ2725-35-86 17:40:00 Test Item Value Reference Range Interpretation Comments U Sodium (test code = U Sodium) 21 [facility] CenterannCARDIAC NUSVGKP9207-84-21 17:40:00 Test Item Value Reference Range Interpretation Comments Total CK (test code = Total CK) 344 12-191 [facility] CenterZnwijqdLXOLNMMFZE8707-83-77 17:40:00 Test Item Value Reference Range Interpretation Comments IVETTE (test code = IVETTE) Positive *ABN*(07/26/16 11:40 AM) [facility] EvpkkezYTHSGPIIKX1239-34-73 17:40:00 Test Item Value Reference Range Interpretation Comments [employer] Ab (test code = [employer] Ab) no gt [facility] JarsydmTTATFMVJPA9441-32-90 17:40:00 Test Item Value Reference Range Interpretation Comments Sm Ab (test code = Sm Ab) no gt [facility] UfeyroyOWRRTVNKNX6085-90-23 17:40:00 Test Item Value Reference Range Interpretation Comments IVETTE Interp (test code Pattern appears = IVETTE Interp) Nucleolar. [facility] VojvhinCAXFNHCBWQ9637-11-68 17:40:00 Test Item Value Reference Range Interpretation Comments SS-B (La) Ab (test code = SS-B (La) Ab) no gt [facility] CenterJgatizlOCBIYPMQPL2902-59-06 17:40:00 Test Item Value Reference Range Interpretation Comments SS-A (Ro) Ab (test code = SS-A (Ro) Ab) no gt [facility] CenterUlvdttiJPZVSORTJO9206-88-59 17:40:00 Test Item Value Reference Range Interpretation Comments DNA Ab (DS) (test Negative (07/26/16 11:40 code = DNA Ab (DS)) AM) [facility] CenterFbjffobKGYOSEZXRS3998-37-98 17:40:00 Test Item Value Reference Range Interpretation Comments IVETTE Titer (test code = 1:40 *ABN*(07/26/16 IVETTE Titer) 11:40 AM) [facility]2017-02-05 17:40:00 Test Item Value Reference Range Interpretation Comments U Sodium (test code = U Sodium) [facility]AuipwbtXRFMNUBZME8295-59-44 14:00:00 Test Item Value Reference Range Interpretation Comments INR (test code = INR) 1.11 0.85-1.17 [facility] CenterBphljpnXQVATWKQOE4952-46-45 14:00:00 Test Item Value Reference Range Interpretation Comments PT (test code = PT) 14.5 s 12.0-14.7 [facility] CenterMundmnzIKQPCNUHDG5259-19-15 14:00:00 Test Item Value Reference Range Interpretation Comments Hep A IgM (test code Negative *NA*(07/26/16 = Hep A IgM) 8:00 AM) [facility] CenterXbrmcwqDDYWYEBQDJ6878-22-20 14:00:00 Test Item Value Reference Range Interpretation Comments Hep B Core IgM (test Negative *NA*(07/26/16 code = Hep B Core 8:00 AM) IgM) [facility] CenterZrfqnfkTHLWPKQOFO8208-88-70 14:00:00 Test Item Value Reference Range Interpretation Comments Hep C Ab (test code = Negative *NA*(07/26/16 Hep C Ab) 8:00 AM) [facility] CenterYpvbhtsKPMPOREGPS0253-32-09 14:00:00 Test Item Value Reference Range Interpretation Comments Hep Bs Ag (test code Negative *NA*(07/26/16 = Hep Bs Ag) 8:00 AM) [facility]TmrbmrdYVNLBNNFFQ7409-06-86 14:00:00 Test Item Value Reference Range Interpretation Comments INR (test code = INR) 1.11 0.85-1.17 [facility] CenterGyzjbuxTOUVKOUDLT3940-04-70 14:00:00 Test Item Value Reference Range Interpretation Comments PT (test code = PT) 14.5 s 12.0-14.7 [facility] HospitalLawasifJYUEDKBOML9657-21-15 14:00:00 Test Item Value Reference Range Interpretation Comments Hep A IgM (test code Negative *NA*(07/26/16 = Hep A IgM) 8:00 AM) [facility] HospitalFftkhxvLBURLJNNZZ3039-62-64 14:00:00 Test Item Value Reference Range Interpretation Comments Hep B Core IgM (test Negative *NA*(07/26/16 code = Hep B Core 8:00 AM) IgM) [facility] HospitalCdhlxldNUPXSVVSCY7204-56-85 14:00:00 Test Item Value Reference Range Interpretation Comments Hep C Ab (test code = Negative *NA*(07/26/16 Hep C Ab) 8:00 AM) [facility] HospitalMfrcxumCPFHUNVVGA6653-30-58 14:00:00 Test Item Value Reference Range Interpretation Comments Hep Bs Ag (test code Negative *NA*(07/26/16 = Hep Bs Ag) 8:00 AM) [facility] CenterAghhdcbTTGMCVHRRP0835-21-27 14:00:00 Test Item Value Reference Range Interpretation Comments INR (test code = INR) 1.11 0.85-1.17 [facility] CenterBbeionnHQOJEGQXYH1806-39-91 14:00:00 Test Item Value Reference Range Interpretation Comments PT (test code = PT) 14.5 s 12.0-14.7 [facility]X[id number] 14:00:00 Test Item Value Reference Range Interpretation Comments Hep A IgM (test code Negative *NA*(07/26/16 = Hep A IgM) 8:00 AM) [facility] HospitalRhhyrxmBYDQZTYEBK3449-99-55 14:00:00 Test Item Value Reference Range Interpretation Comments Hep B Core IgM (test Negative *NA*(07/26/16 code = Hep B Core 8:00 AM) IgM) [facility] HospitalYwhykzbBSIPJOMOKT9054-85-65 14:00:00 Test Item Value Reference Range Interpretation Comments Hep C Ab (test code = Negative *NA*(07/26/16 Hep C Ab) 8:00 AM) [facility] HospitalSnbfktaQWMZUAIFGA8195-39-78 14:00:00 Test Item Value Reference Range Interpretation Comments Hep Bs Ag (test code Negative *NA*(07/26/16 = Hep Bs Ag) 8:00 AM) [facility]SpkysvmWMWYYFXIJI3977-51-18 14:00:00 Test Item Value Reference Range Interpretation Comments INR (test code = INR) 1.11 0.85-1.17 [facility] CenterFmwopdwFFNXIPNDQU1775-65-94 14:00:00 Test Item Value Reference Range Interpretation Comments PT (test code = PT) 14.5 s 12.0-14.7 [facility] HospitalBrlhnzbSGHEIJKBJS0091-63-28 14:00:00 Test Item Value Reference Range Interpretation Comments Hep A IgM (test code Negative *NA*(07/26/16 = Hep A IgM) 8:00 AM) [facility] HospitalVguouorAMPIVMTUOB3528-51-44 14:00:00 Test Item Value Reference Range Interpretation Comments Hep B Core IgM (test Negative *NA*(07/26/16 code = Hep B Core 8:00 AM) IgM) [facility] HospitalZrifnhqCPDYUDNOPI3136-06-63 14:00:00 Test Item Value Reference Range Interpretation Comments Hep C Ab (test code = Negative *NA*(07/26/16 Hep C Ab) 8:00 AM) [facility] HospitalZiwgebaSOXVEGWJTI1841-05-44 14:00:00 Test Item Value Reference Range Interpretation Comments Hep Bs Ag (test code Negative *NA*(07/26/16 = Hep Bs Ag) 8:00 AM) [facility] CenterOtxppsqUBTTWJWKZF1027-52-65 14:00:00 Test Item Value Reference Range Interpretation Comments INR (test code = INR) 1.11 0.85-1.17 [facility] CenterSxvmlmgRLFQOYHQRI7655-43-24 14:00:00 Test Item Value Reference Range Interpretation Comments PT (test code = PT) 14.5 s 12.0-14.7 [facility] HospitalMrrpvheHQQBEZMOYH4936-05-63 14:00:00 Test Item Value Reference Range Interpretation Comments Hep A IgM (test code Negative *NA*(07/26/16 = Hep A IgM) 8:00 AM) [facility] HospitalIbuhhniLLVXSBNYMP3108-59-07 14:00:00 Test Item Value Reference Range Interpretation Comments Hep B Core IgM (test Negative *NA*(07/26/16 code = Hep B Core 8:00 AM) IgM) [facility] HospitalPdnjmrlCGDLYIPAYG8968-34-19 14:00:00 Test Item Value Reference Range Interpretation Comments Hep C Ab (test code = Negative *NA*(07/26/16 Hep C Ab) 8:00 AM) [facility]qmevtvKEPCZVIMKR8253-98-62 14:00:00 Test Item Value Reference Range Interpretation Comments Hep Bs Ag (test code Negative *NA*(07/26/16 = Hep Bs Ag) 8:00 AM) [facility]2017-02-05 10:42:00 Test Item Value Reference Range Interpretation Comments B/C Ratio (test code = B/C Ratio) 17 6-25 [facility]2017-02-05 10:42:00 Test Item Value Reference Range Interpretation Comments ALT (test code = ALT) 1232 See_Comment [Auto mated message] The system which ge nerated this result transmit rohit reference range : <=65. The reference range was not used to interpr et this result as reji l/abnormal. [facility]2017-02-05 10:42:00 Test Item Value Reference Range Interpretation Comments A/G Ratio (test code = A/G Ratio) 0.5 0.7-1.6 [facility]2017-02-05 10:42:00 Test Item Value Reference Range Interpretation Comments Bili Total (test code = Bili Total) 0.3 0.2-1.3 [facility]2017-02-05 10:42:00 Test Item Value Reference Range Interpretation Comments Alk Phos (test code = Alk Phos) 79 39-136 [facility]2017-02-05 10:42:00 Test Item Value Reference Range Interpretation Comments AST (test code = AST) 586 See_Comment [Auto mated message] The system which ge nerated this result transmit rohit reference range : <=37. The reference range was not used to interpr et this result as reji l/abnormal. [facility]2017-02-05 10:42:00 Test Item Value Reference Range Interpretation Comments Total Protein (test code = Total 5.5 6.4-8.4 Protein) [facility]2017-02-05 10:42:00 Test Item Value Reference Range Interpretation Comments Globulin (test code = Globulin) 3.7 2.7-4.2 [facility]2017-02-05 10:42:00 Test Item Value Reference Range Interpretation Comments Albumin Lvl (test code = Albumin Lvl) 1.8 3.5-5.0 [facility]2017-02-05 10:42:00 Test Item Value Reference Range Interpretation Comments Magnesium Lvl (test code = Magnesium 2.1 1.8-2.4 Lvl) [facility] CenterCqubpftMKXEADADUZ1536-28-12 10:42:00 Test Item Value Reference Range Interpretation Comments Acanthocyte (test code = Acanthocyte) [facility] CenterUwxkisrOEQNKERVGE1370-67-61 10:42:00 Test Item Value Reference Range Interpretation Comments Rouleaux (test code = Present *ABN*(07/26/16 Rouleaux) 4:42 AM) [facility] CenterYedvgbeEARYUOHPCN1547-76-64 10:42:00 Test Item Value Reference Range Interpretation Comments Anisocyte (test code = 1+ *ABN*(07/26/16 4:42 Anisocyte) AM) [facility] CenterXsvwfgoUXRIUKBBGW8631-71-42 10:42:00 Test Item Value Reference Range Interpretation Comments Basophils # (test code 0.1 See_Comment [Aut omated message] The = Basophils #) system which generated this result tra nsmitted reference range : <=0.2. The reference r leo was not used to int erpret this result as normal/abnormal . [facility] CenterJaihrroBOMLAPIOCQ1018-62-73 10:42:00 Test Item Value Reference Range Interpretation Comments Large Plt (test code Moderate *ABN*(07/26/16 = Large Plt) 4:42 AM) [facility] CenterAlmwlmbJBKURXXNIT3353-51-08 10:42:00 Test Item Value Reference Range Interpretation Comments C4 Complement (test code = C4 42 16-47 Complement) [facility]2017-02-05 10:42:00 Test Item Value Reference Range Interpretation Comments B/C Ratio (test code = B/C Ratio) 17 6-25 [facility]2017-02-05 10:42:00 Test Item Value Reference Range Interpretation Comments ALT (test code = ALT) 1232 See_Comment [Auto mated message] The system which ge nerated this result transmit rohit reference range : <=65. The reference range was not used to interpr et this result as reji l/abnormal. [facility]2017-02-05 10:42:00 Test Item Value Reference Range Interpretation Comments A/G Ratio (test code = A/G Ratio) 0.5 0.7-1.6 [facility]2017-02-05 10:42:00 Test Item Value Reference Range Interpretation Comments Bili Total (test code = Bili Total) 0.3 0.2-1.3 [facility]2017-02-05 10:42:00 Test Item Value Reference Range Interpretation Comments Alk Phos (test code = Alk Phos) 79 39-136 [facility]2017-02-05 10:42:00 Test Item Value Reference Range Interpretation Comments AST (test code = AST) 586 See_Comment [Auto mated message] The system which ge nerated this result transmit rohit reference range : <=37. The reference range was not used to interpr et this result as reji l/abnormal. [facility]2017-02-05 10:42:00 Test Item Value Reference Range Interpretation Comments Total Protein (test code = Total 5.5 6.4-8.4 Protein) [facility]2017-02-05 10:42:00 Test Item Value Reference Range Interpretation Comments Globulin (test code = Globulin) 3.7 2.7-4.2 [facility]2017-02-05 10:42:00 Test Item Value Reference Range Interpretation Comments Albumin Lvl (test code = Albumin Lvl) 1.8 3.5-5.0 [facility]2017-02-05 10:42:00 Test Item Value Reference Range Interpretation Comments Magnesium Lvl (test code = Magnesium 2.1 1.8-2.4 Lvl) [facility] CenterFmxmfczHRPVUQPEWS6896-27-46 10:42:00 Test Item Value Reference Range Interpretation Comments Acanthocyte (test code = Acanthocyte) [facility] CenterKqamgyoDSOFVVELKM3184-51-95 10:42:00 Test Item Value Reference Range Interpretation Comments Rouleaux (test code = Present *ABN*(07/26/16 Rouleaux) 4:42 AM) [facility] CenterIgkzznnXCYQBRQGXH1712-52-65 10:42:00 Test Item Value Reference Range Interpretation Comments Anisocyte (test code = 1+ *ABN*(07/26/16 4:42 Anisocyte) AM) [facility] CenterIsqskygLVILQNNGVB3245-23-37 10:42:00 Test Item Value Reference Range Interpretation Comments Basophils # (test code 0.1 See_Comment [Aut omated message] The = Basophils #) system which generated this result tra nsmitted reference range : <=0.2. The reference r leo was not used to int erpret this result as normal/abnormal . [facility] CenterRinpuybXBBPUICLOP4846-75-52 10:42:00 Test Item Value Reference Range Interpretation Comments Large Plt (test code Moderate *ABN*(07/26/16 = Large Plt) 4:42 AM) [facility] CenterBrwpjxuOLUBDVSTDG4013-35-55 10:42:00 Test Item Value Reference Range Interpretation Comments C4 Complement (test code = C4 42 16-47 Complement) [facility]2017-02-05 10:42:00 Test Item Value Reference Range Interpretation Comments B/C Ratio (test code = B/C Ratio) 17 6-25 [facility]2017-02-05 10:42:00 Test Item Value Reference Range Interpretation Comments ALT (test code = ALT) 1232 See_Comment [Auto mated message] The system which ge nerated this result transmit rohit reference range : <=65. The reference range was not used to interpr et this result as reji l/abnormal. [facility]2017-02-05 10:42:00 Test Item Value Reference Range Interpretation Comments A/G Ratio (test code = A/G Ratio) 0.5 0.7-1.6 [facility]2017-02-05 10:42:00 Test Item Value Reference Range Interpretation Comments Bili Total (test code = Bili Total) 0.3 0.2-1.3 [facility]2017-02-05 10:42:00 Test Item Value Reference Range Interpretation Comments Alk Phos (test code = Alk Phos) 79 39-136 [facility]2017-02-05 10:42:00 Test Item Value Reference Range Interpretation Comments AST (test code = AST) 586 See_Comment [Auto mated message] The system which ge nerated this result transmit rohit reference range : <=37. The reference range was not used to interpr et this result as reji l/abnormal. [facility]2017-02-05 10:42:00 Test Item Value Reference Range Interpretation Comments Total Protein (test code = Total 5.5 6.4-8.4 Protein) [facility]2017-02-05 10:42:00 Test Item Value Reference Range Interpretation Comments Globulin (test code = Globulin) 3.7 2.7-4.2 [facility]2017-02-05 10:42:00 Test Item Value Reference Range Interpretation Comments Albumin Lvl (test code = Albumin Lvl) 1.8 3.5-5.0 [facility]2017-02-05 10:42:00 Test Item Value Reference Range Interpretation Comments Magnesium Lvl (test code = Magnesium 2.1 1.8-2.4 Lvl) [facility] CenterGctzouqPQSATBJXQI3890-07-79 10:42:00 Test Item Value Reference Range Interpretation Comments Acanthocyte (test code = Acanthocyte) [facility] CenterEdzahkoAEOOXOGWMA2424-79-33 10:42:00 Test Item Value Reference Range Interpretation Comments Rouleaux (test code = Present *ABN*(07/26/16 Rouleaux) 4:42 AM) [facility] CenterZlfleaxODHEVFREZK6820-34-96 10:42:00 Test Item Value Reference Range Interpretation Comments Anisocyte (test code = 1+ *ABN*(07/26/16 4:42 Anisocyte) AM) [facility] CenterOkysigySJPUNPXWHP2475-28-98 10:42:00 Test Item Value Reference Range Interpretation Comments Basophils # (test code 0.1 See_Comment [Aut omated message] The = Basophils #) system which generated this result tra nsmitted reference range : <=0.2. The reference r leo was not used to int erpret this result as normal/abnormal . [facility] CenterKcczrajHIEWKIHKRB7470-74-67 10:42:00 Test Item Value Reference Range Interpretation Comments Large Plt (test code Moderate *ABN*(07/26/16 = Large Plt) 4:42 AM) [facility] CenterBruxjhkGMYTMYWGTK9094-82-43 10:42:00 Test Item Value Reference Range Interpretation Comments C4 Complement (test code = C4 42 16-47 Complement) [facility]2017-02-05 10:42:00 Test Item Value Reference Range Interpretation Comments B/C Ratio (test code = B/C Ratio) 17 6-25 [facility]2017-02-05 10:42:00 Test Item Value Reference Range Interpretation Comments ALT (test code = ALT) 1232 See_Comment [Auto mated message] The system which ge nerated this result transmit rohit reference range : <=65. The reference range was not used to interpr et this result as reji l/abnormal. [facility]2017-02-05 10:42:00 Test Item Value Reference Range Interpretation Comments A/G Ratio (test code = A/G Ratio) 0.5 0.7-1.6 [facility]2017-02-05 10:42:00 Test Item Value Reference Range Interpretation Comments Bili Total (test code = Bili Total) 0.3 0.2-1.3 [facility]2017-02-05 10:42:00 Test Item Value Reference Range Interpretation Comments Alk Phos (test code = Alk Phos) 79 39-136 [facility]2017-02-05 10:42:00 Test Item Value Reference Range Interpretation Comments AST (test code = AST) 586 See_Comment [Auto mated message] The system which ge nerated this result transmit rohit reference range : <=37. The reference range was not used to interpr et this result as reji l/abnormal. [facility]2017-02-05 10:42:00 Test Item Value Reference Range Interpretation Comments Total Protein (test code = Total 5.5 6.4-8.4 Protein) [facility]2017-02-05 10:42:00 Test Item Value Reference Range Interpretation Comments Globulin (test code = Globulin) 3.7 2.7-4.2 [facility]2017-02-05 10:42:00 Test Item Value Reference Range Interpretation Comments Albumin Lvl (test code = Albumin Lvl) 1.8 3.5-5.0 [facility]2017-02-05 10:42:00 Test Item Value Reference Range Interpretation Comments Magnesium Lvl (test code = Magnesium 2.1 1.8-2.4 Lvl) [facility] CenterIlwatudYXSEZDSWMC2616-16-68 10:42:00 Test Item Value Reference Range Interpretation Comments Acanthocyte (test code = Acanthocyte) [facility] CenterKrwdqjpQBCMEIUETL9929-42-57 10:42:00 Test Item Value Reference Range Interpretation Comments Rouleaux (test code = Present *ABN*(07/26/16 Rouleaux) 4:42 AM) [facility] CenterUommtwwXUGPHBESHS6789-60-40 10:42:00 Test Item Value Reference Range Interpretation Comments Anisocyte (test code = 1+ *ABN*(07/26/16 4:42 Anisocyte) AM) [facility] CenterPkgcqdeXVWKHQGBOP3836-46-55 10:42:00 Test Item Value Reference Range Interpretation Comments Basophils # (test code 0.1 See_Comment [Aut omated message] The = Basophils #) system which generated this result tra nsmitted reference range : <=0.2. The reference r leo was not used to int erpret this result as normal/abnormal . [facility] CenterReaszszHLYGJUFPVX0228-04-83 10:42:00 Test Item Value Reference Range Interpretation Comments Large Plt (test code Moderate *ABN*(07/26/16 = Large Plt) 4:42 AM) [facility] CenterChcuqgpNMLEGMQJPK1852-28-50 10:42:00 Test Item Value Reference Range Interpretation Comments C4 Complement (test code = C4 42 16-47 Complement) [facility]2017-02-05 10:42:00 Test Item Value Reference Range Interpretation Comments B/C Ratio (test code = B/C Ratio) 17 6-25 [facility]2017-02-05 10:42:00 Test Item Value Reference Range Interpretation Comments ALT (test code = ALT) 1232 See_Comment [Auto mated message] The system which ge nerated this result transmit rohit reference range : <=65. The reference range was not used to interpr et this result as reji l/abnormal. [facility]2017-02-05 10:42:00 Test Item Value Reference Range Interpretation Comments A/G Ratio (test code = A/G Ratio) 0.5 0.7-1.6 [facility]2017-02-05 10:42:00 Test Item Value Reference Range Interpretation Comments Bili Total (test code = Bili Total) 0.3 0.2-1.3 [facility]2017-02-05 10:42:00 Test Item Value Reference Range Interpretation Comments Alk Phos (test code = Alk Phos) 79 39-136 [facility]2017-02-05 10:42:00 Test Item Value Reference Range Interpretation Comments AST (test code = AST) 586 See_Comment [Auto mated message] The system which ge nerated this result transmit rohit reference range : <=37. The reference range was not used to interpr et this result as reji l/abnormal. [facility]2017-02-05 10:42:00 Test Item Value Reference Range Interpretation Comments Total Protein (test code = Total 5.5 6.4-8.4 Protein) [facility]2017-02-05 10:42:00 Test Item Value Reference Range Interpretation Comments Globulin (test code = Globulin) 3.7 2.7-4.2 [facility]2017-02-05 10:42:00 Test Item Value Reference Range Interpretation Comments Albumin Lvl (test code = Albumin Lvl) 1.8 3.5-5.0 [facility]2017-02-05 10:42:00 Test Item Value Reference Range Interpretation Comments Magnesium Lvl (test code = Magnesium 2.1 1.8-2.4 Lvl) [facility] CenterUcgjfdcNIJMJKHSVP7382-39-61 10:42:00 Test Item Value Reference Range Interpretation Comments Acanthocyte (test code = Acanthocyte) [facility] CenterIktzcsoSDOKTMJKVM6860-87-39 10:42:00 Test Item Value Reference Range Interpretation Comments Rouleaux (test code = Present *ABN*(07/26/16 Rouleaux) 4:42 AM) [facility] CenterIdbjekgSZBOBZJWDR3301-53-84 10:42:00 Test Item Value Reference Range Interpretation Comments Anisocyte (test code = 1+ *ABN*(07/26/16 4:42 Anisocyte) AM) [facility] CenterSjncrhdAKNZYJJQIV8786-81-14 10:42:00 Test Item Value Reference Range Interpretation Comments Basophils # (test code 0.1 See_Comment [Aut omated message] The = Basophils #) system which generated this result tra nsmitted reference range : <=0.2. The reference r leo was not used to int erpret this result as normal/abnormal . [facility] CenterEfaggkkODHQLMVUKH4664-38-73 10:42:00 Test Item Value Reference Range Interpretation Comments Large Plt (test code Moderate *ABN*(07/26/16 = Large Plt) 4:42 AM) [facility] CenterGdazcaqZZFPAPOZUV2919-28-38 10:42:00 Test Item Value Reference Range Interpretation Comments C4 Complement (test code = C4 42 16-47 Complement) [facility] AND [id number] 16:34:00 Test Item Value Reference Range Interpretation Comments UA Sq Epi (test code = UA Sq Epi) None Seen [facility] AND [id number] 16:34:00 Test Item Value Reference Range Interpretation Comments UA Waxy Cast (test code = UA Waxy Cast) 1 [facility] AND [id number] 16:34:00 Test Item Value Reference Range Interpretation Comments UA Hyal Cast (test 4 See_Comment [Automat ed message] The code = UA Hyal Cast) system which generated this result transmit rohit reference range : <=2. The reference range was not used to interpr et this result as reji l/abnormal. [facility] AND [id number] 16:34:00 Test Item Value Reference Range Interpretation Comments UA Bacteria (test code = UA Occasional /HPF Bacteria) [facility] AND [id number] 16:34:00 Test Item Value Reference Range Interpretation Comments UA Mucus (test code = UA Mucus) Few /LPF [facility] AND [id number] 16:34:00 Test Item Value Reference Range Interpretation Comments UA Amorph Destiny (test code = Occasional /HPF UA Amorph Destiny) [facility] AND [id number] 16:34:00 Test Item Value Reference Range Interpretation Comments UA Leuk Est (test Negative (07/25/16 10:34 code = UA Leuk Est) AM) [facility] AND [id number] 16:34:00 Test Item Value Reference Range Interpretation Comments UA Nitrite (test code Negative (07/25/16 10:34 = UA Nitrite) AM) [facility] AND [id number] 16:34:00 Test Item Value Reference Range Interpretation Comments UA RBC (test code = 2 See_Comment [Automa rohit message] The UA RBC) system which ge nerated this result transmit rohit reference range : <=2. The reference range was not used to interpr et this result as reji l/abnormal. [facility] AND [id number] 16:34:00 Test Item Value Reference Range Interpretation Comments UA WBC (test code = 6 See_Comment [Automa rohit message] The UA WBC) system which ge nerated this result transmit rohit reference range : <=5. The reference range was not used to interpr et this result as reji l/abnormal. [facility] AND [id number] 16:34:00 Test Item Value Reference Range Interpretation Comments UA Urobilinogen (test code = UA 2.0 0.1-1.0 Urobilinogen) [facility] AND [id number] 16:34:00 Test Item Value Reference Range Interpretation Comments UA Ketones (test code = UA Negative mg/dL Ketones) [facility] AND [id number] 16:34:00 Test Item Value Reference Range Interpretation Comments UA Glucose (test code = UA Glucose) 70 mg/dL [facility] AND [id number] 16:34:00 Test Item Value Reference Range Interpretation Comments UA Blood (test code = Negative (07/25/16 10:34 UA Blood) AM) [facility] AND [id number] 16:34:00 Test Item Value Reference Range Interpretation Comments UA Bili (test code = Negative *NA*(07/25/16 UA Bili) 10:34 AM) [facility] AND [id number] 16:34:00 Test Item Value Reference Range Interpretation Comments UA Protein (test code = UA >=300 mg/dL Protein) [facility] AND [id number] 16:34:00 Test Item Value Reference Range Interpretation Comments UA Spec Grav (test code = UA Spec Grav) 1.012 [facility] AND [id number] 16:34:00 Test Item Value Reference Range Interpretation Comments UA pH (test code = UA pH) 5.5 5.0-8.0 [facility] AND [id number] 16:34:00 Test Item Value Reference Range Interpretation Comments UA Turbidity (test code Slight *ABN*(07/25/16 = UA Turbidity) 10:34 AM) [facility] AND [id number] 16:34:00 Test Item Value Reference Range Interpretation Comments UA Color (test code = Dark Yellow *NA*(07/25/16 UA Color) 10:34 AM) [facility] AND [id number] 16:34:00 Test Item Value Reference Range Interpretation Comments UA Gran Cast (test code = UA Gran Cast) 9 [facility]2017-02-04 16:34:00 Test Item Value Reference Range Interpretation Comments U Sodium (test code = U Sodium) 30 [facility]2017-02-04 16:34:00 Test Item Value Reference Range Interpretation Comments U Prot/Creat (test code = U Prot/Creat) 3.1 [facility]2017-02-04 16:34:00 Test Item Value Reference Range Interpretation Comments U Protein (test code = U Protein) 420.9 [facility]2017-02-04 16:34:00 Test Item Value Reference Range Interpretation Comments U Creatinine (test code = U 136.00 Creatinine) [facility] AND [id number] 16:34:00 Test Item Value Reference Range Interpretation Comments UA Sq Epi (test code = UA Sq Epi) None Seen [facility] AND [id number] 16:34:00 Test Item Value Reference Range Interpretation Comments UA Waxy Cast (test code = UA Waxy Cast) 1 [facility] AND [id number] 16:34:00 Test Item Value Reference Range Interpretation Comments UA Hyal Cast (test 4 See_Comment [Automat ed message] The code = UA Hyal Cast) system which generated this result transmit rohit reference range : <=2. The reference range was not used to interpr et this result as reji l/abnormal. [facility] AND [id number] 16:34:00 Test Item Value Reference Range Interpretation Comments UA Bacteria (test code = UA Occasional /HPF Bacteria) [facility] AND [id number] 16:34:00 Test Item Value Reference Range Interpretation Comments UA Mucus (test code = UA Mucus) Few /LPF [facility] AND [id number] 16:34:00 Test Item Value Reference Range Interpretation Comments UA Amorph Destiny (test code = Occasional /HPF UA Amorph Destiny) [facility] AND [id number] 16:34:00 Test Item Value Reference Range Interpretation Comments UA Leuk Est (test Negative (07/25/16 10:34 code = UA Leuk Est) AM) [facility] AND [id number] 16:34:00 Test Item Value Reference Range Interpretation Comments UA Nitrite (test code Negative (07/25/16 10:34 = UA Nitrite) AM) [facility] AND [id number] 16:34:00 Test Item Value Reference Range Interpretation Comments UA RBC (test code = 2 See_Comment [Automa rohit message] The UA RBC) system which ge nerated this result transmit rohit reference range : <=2. The reference range was not used to interpr et this result as reji l/abnormal. [facility] AND [id number] 16:34:00 Test Item Value Reference Range Interpretation Comments UA WBC (test code = 6 See_Comment [Automa rohit message] The UA WBC) system which ge nerated this result transmit rohit reference range : <=5. The reference range was not used to interpr et this result as reji l/abnormal. [facility] AND [id number] 16:34:00 Test Item Value Reference Range Interpretation Comments UA Urobilinogen (test code = UA 2.0 0.1-1.0 Urobilinogen) [facility] AND [id number] 16:34:00 Test Item Value Reference Range Interpretation Comments UA Ketones (test code = UA Negative mg/dL Ketones) [facility] AND [id number] 16:34:00 Test Item Value Reference Range Interpretation Comments UA Glucose (test code = UA Glucose) 70 mg/dL [facility] AND [id number] 16:34:00 Test Item Value Reference Range Interpretation Comments UA Blood (test code = Negative (07/25/16 10:34 UA Blood) AM) [facility] AND [id number] 16:34:00 Test Item Value Reference Range Interpretation Comments UA Bili (test code = Negative *NA*(07/25/16 UA Bili) 10:34 AM) [facility] AND [id number] 16:34:00 Test Item Value Reference Range Interpretation Comments UA Protein (test code = UA >=300 mg/dL Protein) [facility] AND [id number] 16:34:00 Test Item Value Reference Range Interpretation Comments UA Spec Grav (test code = UA Spec Grav) 1.012 [facility] AND [id number] 16:34:00 Test Item Value Reference Range Interpretation Comments UA pH (test code = UA pH) 5.5 5.0-8.0 [facility] AND [id number] 16:34:00 Test Item Value Reference Range Interpretation Comments UA Turbidity (test code Slight *ABN*(07/25/16 = UA Turbidity) 10:34 AM) [facility] AND [id number] 16:34:00 Test Item Value Reference Range Interpretation Comments UA Color (test code = Dark Yellow *NA*(07/25/16 UA Color) 10:34 AM) [facility] AND [id number] 16:34:00 Test Item Value Reference Range Interpretation Comments UA Gran Cast (test code = UA Gran Cast) 9 [facility] [id number] 16:34:00 Test Item Value Reference Range Interpretation Comments U Sodium (test code = U Sodium) 30 [facility] [id number] 16:34:00 Test Item Value Reference Range Interpretation Comments U Prot/Creat (test code = U Prot/Creat) 3.1 [facility]2017-02-04 16:34:00 Test Item Value Reference Range Interpretation Comments U Protein (test code = U Protein) 420.9 [facility]2017-02-04 16:34:00 Test Item Value Reference Range Interpretation Comments U Creatinine (test code = U 136.00 Creatinine) [facility] AND [id number] 16:34:00 Test Item Value Reference Range Interpretation Comments UA Sq Epi (test code = UA Sq Epi) None Seen [facility] AND [id number] 16:34:00 Test Item Value Reference Range Interpretation Comments UA Waxy Cast (test code = UA Waxy Cast) 1 [facility] AND [id number] 16:34:00 Test Item Value Reference Range Interpretation Comments UA Hyal Cast (test 4 See_Comment [Automat ed message] The code = UA Hyal Cast) system which generated this result transmit rohit reference range : <=2. The reference range was not used to interpr et this result as reji l/abnormal. [facility] AND [id number] 16:34:00 Test Item Value Reference Range Interpretation Comments UA Bacteria (test code = UA Occasional /HPF Bacteria) [facility] AND [id number] 16:34:00 Test Item Value Reference Range Interpretation Comments UA Mucus (test code = UA Mucus) Few /LPF [facility] AND [id number] 16:34:00 Test Item Value Reference Range Interpretation Comments UA Amorph Destiny (test code = Occasional /HPF UA Amorph Destiny) [facility] AND [id number] 16:34:00 Test Item Value Reference Range Interpretation Comments UA Leuk Est (test Negative (07/25/16 10:34 code = UA Leuk Est) AM) [facility] AND [id number] 16:34:00 Test Item Value Reference Range Interpretation Comments UA Nitrite (test code Negative (07/25/16 10:34 = UA Nitrite) AM) [facility] AND [id number] 16:34:00 Test Item Value Reference Range Interpretation Comments UA RBC (test code = 2 See_Comment [Automa rohit message] The UA RBC) system which ge nerated this result transmit rohit reference range : <=2. The reference range was not used to interpr et this result as reji l/abnormal. [facility] AND [id number] 16:34:00 Test Item Value Reference Range Interpretation Comments UA WBC (test code = 6 See_Comment [Automa rohit message] The UA WBC) system which ge nerated this result transmit rohit reference range : <=5. The reference range was not used to interpr et this result as reji l/abnormal. [facility] AND [id number] 16:34:00 Test Item Value Reference Range Interpretation Comments UA Urobilinogen (test code = UA 2.0 0.1-1.0 Urobilinogen) [facility] AND [id number] 16:34:00 Test Item Value Reference Range Interpretation Comments UA Ketones (test code = UA Negative mg/dL Ketones) [facility] AND [id number] 16:34:00 Test Item Value Reference Range Interpretation Comments UA Glucose (test code = UA Glucose) 70 mg/dL [facility] AND [id number] 16:34:00 Test Item Value Reference Range Interpretation Comments UA Blood (test code = Negative (07/25/16 10:34 UA Blood) AM) [facility] AND [id number] 16:34:00 Test Item Value Reference Range Interpretation Comments UA Bili (test code = Negative *NA*(07/25/16 UA Bili) 10:34 AM) [facility] [id number] 16:34:00 Test Item Value Reference Range Interpretation Comments UA Protein (test code = UA >=300 mg/dL Protein) [facility] [id number] 16:34:00 Test Item Value Reference Range Interpretation Comments UA Spec Grav (test code = UA Spec Grav) 1.012 [facility] [id number] 16:34:00 Test Item Value Reference Range Interpretation Comments UA pH (test code = UA pH) 5.5 5.0-8.0 [facility] [id number] 16:34:00 Test Item Value Reference Range Interpretation Comments UA Turbidity (test code Slight *ABN*(07/25/16 = UA Turbidity) 10:34 AM) [facility] [id number] 16:34:00 Test Item Value Reference Range Interpretation Comments UA Color (test code = Dark Yellow *NA*(07/25/16 UA Color) 10:34 AM) [facility] [id number] 16:34:00 Test Item Value Reference Range Interpretation Comments UA Gran Cast (test code = UA Gran Cast) 9 [facility] [id number] 16:34:00 Test Item Value Reference Range Interpretation Comments U Sodium (test code = U Sodium) 30 [facility] [id number] 16:34:00 Test Item Value Reference Range Interpretation Comments U Prot/Creat (test code = U Prot/Creat) 3.1 [facility] [id number] 16:34:00 Test Item Value Reference Range Interpretation Comments U Protein (test code = U Protein) 420.9 [facility] [id number] 16:34:00 Test Item Value Reference Range Interpretation Comments U Creatinine (test code = U 136.00 Creatinine) [facility] [id number] 16:34:00 Test Item Value Reference Range Interpretation Comments UA Sq Epi (test code = UA Sq Epi) None [facility] [id number] 16:34:00 Test Item Value Reference Range Interpretation Comments UA Waxy Cast (test code = UA Waxy Cast) 1 [facility] [id number] 16:34:00 Test Item Value Reference Range Interpretation Comments UA Hyal Cast (test 4 See_Comment [Automat ed message] The code = UA Hyal Cast) system which generated this result transmit rohit reference range : <=2. The reference range was not used to interpr et this result as reji l/abnormal. [facility] AND [id number] 16:34:00 Test Item Value Reference Range Interpretation Comments UA Bacteria (test code = UA Occasional /HPF Bacteria) [facility] AND [id number] 16:34:00 Test Item Value Reference Range Interpretation Comments UA Mucus (test code = UA Mucus) Few /LPF [facility] AND [id number] 16:34:00 Test Item Value Reference Range Interpretation Comments UA Amorph Destiny (test code = Occasional /HPF UA Amorph Destiny) [facility] AND [id number] 16:34:00 Test Item Value Reference Range Interpretation Comments UA Leuk Est (test Negative (07/25/16 10:34 code = UA Leuk Est) AM) [facility] AND [id number] 16:34:00 Test Item Value Reference Range Interpretation Comments UA Nitrite (test code Negative (07/25/16 10:34 = UA Nitrite) AM) [facility] AND [id number] 16:34:00 Test Item Value Reference Range Interpretation Comments UA RBC (test code = 2 See_Comment [Automa rohit message] The UA RBC) system which ge nerated this result transmit rohit reference range : <=2. The reference range was not used to interpr et this result as reji l/abnormal. [facility] AND [id number] 16:34:00 Test Item Value Reference Range Interpretation Comments UA WBC (test code = 6 See_Comment [Automa rohit message] The UA WBC) system which ge nerated this result transmit rohit reference range : <=5. The reference range was not used to interpr et this result as reji l/abnormal. [facility] AND [id number] 16:34:00 Test Item Value Reference Range Interpretation Comments UA Urobilinogen (test code = UA 2.0 0.1-1.0 Urobilinogen) [facility] AND [id number] 16:34:00 Test Item Value Reference Range Interpretation Comments UA Ketones (test code = UA Negative mg/dL Ketones) [facility] AND [id number] 16:34:00 Test Item Value Reference Range Interpretation Comments UA Glucose (test code = UA Glucose) 70 mg/dL [facility] AND [id number] 16:34:00 Test Item Value Reference Range Interpretation Comments UA Blood (test code = Negative (07/25/16 10:34 UA Blood) AM) [facility] AND [id number] 16:34:00 Test Item Value Reference Range Interpretation Comments UA Bili (test code = Negative *NA*(07/25/16 UA Bili) 10:34 AM) [facility] AND [id number] 16:34:00 Test Item Value Reference Range Interpretation Comments UA Protein (test code = UA >=300 mg/dL Protein) [facility] AND [id number] 16:34:00 Test Item Value Reference Range Interpretation Comments UA Spec Grav (test code = UA Spec Grav) 1.012 [facility] AND [id number] 16:34:00 Test Item Value Reference Range Interpretation Comments UA pH (test code = UA pH) 5.5 5.0-8.0 [facility] AND [id number] 16:34:00 Test Item Value Reference Range Interpretation Comments UA Turbidity (test code Slight *ABN*(07/25/16 = UA Turbidity) 10:34 AM) [facility] AND [id number] 16:34:00 Test Item Value Reference Range Interpretation Comments UA Color (test code = Dark Yellow *NA*(07/25/16 UA Color) 10:34 AM) [facility] AND [id number] 16:34:00 Test Item Value Reference Range Interpretation Comments UA Gran Cast (test code = UA Gran Cast) 9 [facility] [id number] 16:34:00 Test Item Value Reference Range Interpretation Comments U Sodium (test code = U Sodium) 30 [facility] [id number] 16:34:00 Test Item Value Reference Range Interpretation Comments U Prot/Creat (test code = U Prot/Creat) 3.1 [facility] [id number] 16:34:00 Test Item Value Reference Range Interpretation Comments U Protein (test code = U Protein) 420.9 [facility] [id number] 16:34:00 Test Item Value Reference Range Interpretation Comments U Creatinine (test code = U 136.00 Creatinine) [facility] AND [id number] 16:34:00 Test Item Value Reference Range Interpretation Comments UA Sq Epi (test code = UA Sq Epi) None Seen [facility] AND [id number] 16:34:00 Test Item Value Reference Range Interpretation Comments UA Waxy Cast (test code = UA Waxy Cast) 1 [facility] AND [id number] 16:34:00 Test Item Value Reference Range Interpretation Comments UA Hyal Cast (test 4 See_Comment [Automat ed message] The code = UA Hyal Cast) system which generated this result transmit rohit reference range : <=2. The reference range was not used to interpr et this result as reji l/abnormal. [facility] AND [id number] 16:34:00 Test Item Value Reference Range Interpretation Comments UA Bacteria (test code = UA Occasional /HPF Bacteria) [facility] AND [id number] 16:34:00 Test Item Value Reference Range Interpretation Comments UA Mucus (test code = UA Mucus) Few /LPF [facility] AND [id number] 16:34:00 Test Item Value Reference Range Interpretation Comments UA Amorph Destiny (test code = Occasional /HPF UA Amorph Destiny) [facility] AND [id number] 16:34:00 Test Item Value Reference Range Interpretation Comments UA Leuk Est (test Negative (07/25/16 10:34 code = UA Leuk Est) AM) [facility] AND [id number] 16:34:00 Test Item Value Reference Range Interpretation Comments UA Nitrite (test code Negative (07/25/16 10:34 = UA Nitrite) AM) [facility] AND [id number] 16:34:00 Test Item Value Reference Range Interpretation Comments UA RBC (test code = 2 See_Comment [Automa rohit message] The UA RBC) system which ge nerated this result transmit rohit reference range : <=2. The reference range was not used to interpr et this result as reji l/abnormal. [facility] AND [id number] 16:34:00 Test Item Value Reference Range Interpretation Comments UA WBC (test code = 6 See_Comment [Automa rohit message] The UA WBC) system which ge nerated this result transmit rohit reference range : <=5. The reference range was not used to interpr et this result as reji l/abnormal. [facility] AND [id number] 16:34:00 Test Item Value Reference Range Interpretation Comments UA Urobilinogen (test code = UA 2.0 0.1-1.0 Urobilinogen) [facility] AND [id number] 16:34:00 Test Item Value Reference Range Interpretation Comments UA Ketones (test code = UA Negative mg/dL Ketones) [facility] AND [id number] 16:34:00 Test Item Value Reference Range Interpretation Comments UA Glucose (test code = UA Glucose) 70 mg/dL [facility] AND [id number] 16:34:00 Test Item Value Reference Range Interpretation Comments UA Blood (test code = Negative (07/25/16 10:34 UA Blood) AM) [facility] AND [id number] 16:34:00 Test Item Value Reference Range Interpretation Comments UA Bili (test code = Negative *NA*(07/25/16 UA Bili) 10:34 AM) [facility] AND [id number] 16:34:00 Test Item Value Reference Range Interpretation Comments UA Protein (test code = UA >=300 mg/dL Protein) [facility] AND [id number] 16:34:00 Test Item Value Reference Range Interpretation Comments UA Spec Grav (test code = UA Spec Grav) 1.012 [facility] AND [id number] 16:34:00 Test Item Value Reference Range Interpretation Comments UA pH (test code = UA pH) 5.5 5.0-8.0 [facility] AND [id number] 16:34:00 Test Item Value Reference Range Interpretation Comments UA Turbidity (test code Slight *ABN*(07/25/16 = UA Turbidity) 10:34 AM) [facility] AND [id number] 16:34:00 Test Item Value Reference Range Interpretation Comments UA Color (test code = Dark Yellow *NA*(07/25/16 UA Color) 10:34 AM) [facility] AND [id number] 16:34:00 Test Item Value Reference Range Interpretation Comments UA Gran Cast (test code = UA Gran Cast) 9 [facility]2017-02-04 16:34:00 Test Item Value Reference Range Interpretation Comments U Sodium (test code = U Sodium) 30 [facility]2017-02-04 16:34:00 Test Item Value Reference Range Interpretation Comments U Prot/Creat (test code = U Prot/Creat) 3.1 [facility]2017-02-04 16:34:00 Test Item Value Reference Range Interpretation Comments U Protein (test code = U Protein) 420.9 [facility]2017-02-04 16:34:00 Test Item Value Reference Range Interpretation Comments U Creatinine (test code = U 136.00 Creatinine) [facility]2017-02-04 08:55:00 Test Item Value Reference Range Interpretation Comments Magnesium Lvl (test code = Magnesium 2.0 1.8-2.4 Lvl) [facility]2017-02-04 08:55:00 Test Item Value Reference Range Interpretation Comments Phosphorus (test code = Phosphorus) 5.2 2.5-4.5 [facility]2017-02-04 08:55:00 Test Item Value Reference Range Interpretation Comments Magnesium Lvl (test code = Magnesium 2.0 1.8-2.4 Lvl) [facility]2017-02-04 08:55:00 Test Item Value Reference Range Interpretation Comments Phosphorus (test code = Phosphorus) 5.2 2.5-4.5 [facility]2017-02-04 08:55:00 Test Item Value Reference Range Interpretation Comments Magnesium Lvl (test code = Magnesium 2.0 1.8-2.4 Lvl) [facility]2017-02-04 08:55:00 Test Item Value Reference Range Interpretation Comments Phosphorus (test code = Phosphorus) 5.2 2.5-4.5 [facility]2017-02-04 08:55:00 Test Item Value Reference Range Interpretation Comments Magnesium Lvl (test code = Magnesium 2.0 1.8-2.4 Lvl) [facility]2017-02-04 08:55:00 Test Item Value Reference Range Interpretation Comments Phosphorus (test code = Phosphorus) 5.2 2.5-4.5 [facility] [id number] 08:55:00 Test Item Value Reference Range Interpretation Comments Magnesium Lvl (test code = Magnesium 2.0 1.8-2.4 Lvl) [facility] [id number] 08:55:00 Test Item Value Reference Range Interpretation Comments Phosphorus (test code = Phosphorus) 5.2 2.5-4.5 [facility] 17:29:00 Test Item Value Reference Range Interpretation Comments Troponin-I (test code 0.28 See_Comment [Auto mated message] The = Troponin-I) system which g enerated this result transmit rohit reference range : <=0.40. The reference r leo was not used to interpr et this result as reji l/abnormal. [facility] [id number] 17:29:00 Test Item Value Reference Range Interpretation Comments Total CK (test code = Total CK) 2616 12-191 [facility] 17:29:00 Test Item Value Reference Range Interpretation Comments Troponin-T (test code 0.144 See_Comment [Auto mated message] The = Troponin-T) system which g enerated this result transmit rohit reference range : <=0.100. The reference r leo was not used to interpr et this result as reji l/abnormal. [facility] 17:29:00 Test Item Value Reference Range Interpretation Comments CK MB Index (test 0.2 See_Comment [Automate d message] The code = CK MB Index) system w [facility] generated this result transmit rohit reference range : <=2.5. The reference range was not used to interpr et this result as reji l/abnormal. [facility] 17:29:00 Test Item Value Reference Range Interpretation Comments CK MB (test code = CK MB) 6.3 0.5-3.6 [facility] 17:29:00 Test Item Value Reference Range Interpretation Comments Troponin-I (test code 0.28 See_Comment [Auto mated message] The = Troponin-I) system which g enerated this result transmit rohit reference range : <=0.40. The reference r leo was not used to interpr et this result as reji l/abnormal. [facility]2017-02-03 17:29:00 Test Item Value Reference Range Interpretation Comments Total CK (test code = Total CK) 2615 [facility]2017-02-03 17:29:00 Test Item Value Reference Range Interpretation Comments Troponin-T (test code 0.144 See_Comment [Auto mated message] The = Troponin-T) system which g enerated this result transmit rohit reference range : <=0.100. The reference r leo was not used to interpr et this result as reji l/abnormal. [facility]2017-02-03 17:29:00 Test Item Value Reference Range Interpretation Comments CK MB Index (test 0.2 See_Comment [Automate d message] The code = CK MB Index) system w [facility] generated this result transmit rohit reference range : <=2.5. The reference range was not used to interpr et this result as reji l/abnormal. [facility]2017-02-03 17:29:00 Test Item Value Reference Range Interpretation Comments CK MB (test code = CK MB) 6.3 0.5-3.6 [facility]2017-02-03 17:29:00 Test Item Value Reference Range Interpretation Comments Troponin-I (test code 0.28 See_Comment [Auto mated message] The = Troponin-I) system which g enerated this result transmit rohit reference range : <=0.40. The reference r leo was not used to interpr et this result as reji l/abnormal. [facility]2017-02-03 17:29:00 Test Item Value Reference Range Interpretation Comments Total CK (test code = Total CK) [id number] [facility]2017-02-03 17:29:00 Test Item Value Reference Range Interpretation Comments Troponin-T (test code 0.144 See_Comment [Auto mated message] The = Troponin-T) system which g enerated this result transmit rohit reference range : <=0.100. The reference r leo was not used to interpr et this result as reji l/abnormal. [facility]2017-02-03 17:29:00 Test Item Value Reference Range Interpretation Comments CK MB Index (test 0.2 See_Comment [Automate d message] The code = CK MB Index) system w [employer] generated this result transmit rohit reference range : <=2.5. The reference range was not used to interpr et this result as reji l/abnormal. [facility]2017-02-03 17:29:00 Test Item Value Reference Range Interpretation Comments CK MB (test code = CK MB) 6.3 0.5-3.6 [facility] CenterAffinegy [id number] 17:29:00 Test Item Value Reference Range Interpretation Comments Troponin-I (test code 0.28 See_Comment [Auto mated message] The = Troponin-I) system which g enerated this result transmit rohit reference range : <=0.40. The reference r leo was not used to interpr et this result as reji l/abnormal. [facility] CenterSynlogic[facility] 17:29:00 Test Item Value Reference Range Interpretation Comments Total CK (test code = Total CK) 2616 12-191 [facility] CenterSynlogic2017-02-[facility] 17:29:00 Test Item Value Reference Range Interpretation Comments Troponin-T (test code 0.144 See_Comment [Auto mated message] The = Troponin-T) system which g enerated this result transmit rohit reference range : <=0.100. The reference r leo was not used to interpr et this result as reji l/abnormal. [facility] AGLOGIC2017-02-03 17:29:00 Test Item Value Reference Range Interpretation Comments CK MB Index (test 0.2 See_Comment [Automate d message] The code = CK MB Index) system w [employer] generated this result transmit rohit reference range : <=2.5. The reference range was not used to interpr et this result as reji l/abnormal. [facility] AGLOGIC2017-02-03 17:29:00 Test Item Value Reference Range Interpretation Comments CK MB (test code = CK MB) 6.3 0.5-3.6 [facility] YmagisAC [id number] 17:29:00 Test Item Value Reference Range Interpretation Comments Troponin-I (test code 0.28 See_Comment [Auto mated message] The = Troponin-I) system which g enerated this result transmit rohit reference range : <=0.40. The reference r leo was not used to interpr et this result as reji l/abnormal. [facility] CenternaeemBARRX Medical [id number] 17:29:00 Test Item Value Reference Range Interpretation Comments Total CK (test code = Total CK) 2616 12-191 [facility] C[id number] 17:29:00 Test Item Value Reference Range Interpretation Comments Troponin-T (test code 0.144 See_Comment [Auto mated message] The = Troponin-T) system which g enerated this result transmit rohit reference range : <=0.100. The reference r leo was not used to interpr et this result as reji l/abnormal. [facility] CenternaeemBARRX Medical [id number] 17:29:00 Test Item Value Reference Range Interpretation Comments CK MB Index (test 0.2 See_Comment [Automate d message] The code = CK MB Index) system w [facility] generated this result transmit rohit reference range : <=2.5. The reference range was not used to interpr et this result as reji l/abnormal. [facility] CenternaeemBARRX Medical [id number] 17:29:00 Test Item Value Reference Range Interpretation Comments CK MB (test code = CK MB) 6.3 0.5-3.6 [facility] Center[id number] 11:20:00 Test Item Value Reference Range Interpretation Comments Troponin-I (test code 0.38 See_Comment [Auto mated message] The = Troponin-I) system which g enerated this result transmit rohit reference range : <=0.40. The reference r leo was not used to interpr et this result as reji l/abnormal. [facility] CenterSynlogic2017-02-[facility] 11:20:00 Test Item Value Reference Range Interpretation Comments Troponin-T (test code 0.173 See_Comment [Auto mated message] The = Troponin-T) system which g enerated this result transmit rohit reference range : <=0.100. The reference r leo was not used to interpr et this result as reji l/abnormal. [facility] AGLOGIC2017-02-03 11:20:00 Test Item Value Reference Range Interpretation Comments CK MB Index (test 0.2 See_Comment [Automate d message] The code = CK MB Index) system w [employer] generated this result transmit rohit reference range : <=2.5. The reference range was not used to interpr et this result as reji l/abnormal. [facility] AGLOGIC2017-02-03 11:20:00 Test Item Value Reference Range Interpretation Comments CK MB (test code = CK MB) 5.6 0.5-3.6 [facility] [employer] [id number] 11:20:00 Test Item Value Reference Range Interpretation Comments Phosphorus (test code = Phosphorus) 5.5 2.5-4.5 [facility] AGLOGIC2017-02-03 11:20:00 Test Item Value Reference Range Interpretation Comments Troponin-I (test code 0.38 See_Comment [Auto mated message] The = Troponin-I) system which g enerated this result transmit rohit reference range : <=0.40. The reference r leo was not used to interpr et this result as reji l/abnormal. [facility] AGLOGIC2017-02-03 11:20:00 Test Item Value Reference Range Interpretation Comments Troponin-T (test code 0.173 See_Comment [Auto mated message] The = Troponin-T) system which g enerated this result transmit rohit reference range : <=0.100. The reference r leo was not used to interpr et this result as reji l/abnormal. [facility] AGLOGIC2017-02-03 11:20:00 Test Item Value Reference Range Interpretation Comments CK MB Index (test 0.2 See_Comment [Automate d message] The code = CK MB Index) system w [employer] generated this result transmit rohit reference range : <=2.5. The reference range was not used to interpr et this result as reji l/abnormal. [facility] AGLOGIC2017-02-03 11:20:00 Test Item Value Reference Range Interpretation Comments CK MB (test code = CK MB) 5.6 0.5-3.6 [employer] [id number] 11:20:00 Test Item Value Reference Range Interpretation Comments Phosphorus (test code = Phosphorus) 5.5 2.5-4.5 [facility] CenterDoughMainEPHRAIM [facility] [id number] 11:20:00 Test Item Value Reference Range Interpretation Comments Troponin-I (test code 0.38 See_Comment [Auto mated message] The = Troponin-I) system which g enerated this result transmit rohit reference range : <=0.40. The reference r leo was not used to interpr et this result as reji l/abnormal. [facility] CenterDoughMainEPHRAIM [facility]CD[facility] [id number] 11:20:00 Test Item Value Reference Range Interpretation Comments Troponin-T (test code 0.173 See_Comment [Auto mated message] The = Troponin-T) system which g enerated this result transmit rohit reference range : <=0.100. The reference r leo was not used to interpr et this result as reji l/abnormal. [facility] CenterDoughMainEPHRAIM [facility] [id number] 11:20:00 Test Item Value Reference Range Interpretation Comments CK MB Index (test 0.2 See_Comment [Automate d message] The code = CK MB Index) system w [facility] generated this result transmit rohit reference range : <=2.5. The reference range was not used to interpr et this result as reji l/abnormal. [facility] CenterRediLearningEPHRAIM [facility] [id number] 11:20:00 Test Item Value Reference Range Interpretation Comments CK MB (test code = CK MB) 5.6 0.5-3.6 [facility]2017-02-03 11:20:00 Test Item Value Reference Range Interpretation Comments Phosphorus (test code = Phosphorus) 5.5 2.5-4.5 [facility] CenterZenDeals [id number] 11:20:00 Test Item Value Reference Range Interpretation Comments Troponin-I (test code 0.38 See_Comment [Auto mated message] The = Troponin-I) system which g enerated this result transmit rohit reference range : <=0.40. The reference r leo was not used to interpr et this result as reji l/abnormal. [facility] CenterSynlogic2017-[facility] 11:20:00 Test Item Value Reference Range Interpretation Comments Troponin-T (test code 0.173 See_Comment [Auto mated message] The = Troponin-T) system which g enerated this result transmit rohit reference range : <=0.100. The reference r leo was not used to interpr et this result as reji l/abnormal. [facility] AGLOGIC2017-02-03 11:20:00 Test Item Value Reference Range Interpretation Comments CK MB Index (test 0.2 See_Comment [Automate d message] The code = CK MB Index) system w [employer] generated this result transmit rohit reference range : <=2.5. The reference range was not used to interpr et this result as reji l/abnormal. [facility] AGLOGIC2017-02-03 11:20:00 Test Item Value Reference Range Interpretation Comments CK MB (test code = CK MB) 5.6 0.5-3.6 [facility] [employer]2017-02-03 11:20:00 Test Item Value Reference Range Interpretation Comments Phosphorus (test code = Phosphorus) 5.5 2.5-4.5 [facility] AGLOGIC2017-02-03 11:20:00 Test Item Value Reference Range Interpretation Comments Troponin-I (test code 0.38 See_Comment [Auto mated message] The = Troponin-I) system which g enerated this result transmit rohit reference range : <=0.40. The reference r leo was not used to interpr et this result as reji l/abnormal. [facility] AGLOGIC2017-02-03 11:20:00 Test Item Value Reference Range Interpretation Comments Troponin-T (test code 0.173 See_Comment [Auto mated message] The = Troponin-T) system which g enerated this result transmit rohit reference range : <=0.100. The reference r leo was not used to interpr et this result as reji l/abnormal. [facility] AGLOGIC2017-02-03 11:20:00 Test Item Value Reference Range Interpretation Comments CK MB Index (test 0.2 See_Comment [Automate d message] The code = CK MB Index) system w [employer] generated this result transmit rohit reference range : <=2.5. The reference range was not used to interpr et this result as reji l/abnormal. [facility] AGLOGIC2017-02-03 11:20:00 Test Item Value Reference Range Interpretation Comments CK MB (test code = CK MB) 5.6 0.5-3.6 [facility] [employer]2017-02-03 11:20:00 Test Item Value Reference Range Interpretation Comments Phosphorus (test code = Phosphorus) 5.5 2.5-4.5 [facility] AlkymosannCARDIAC [id number] 06:18:00 Test Item Value Reference Range Interpretation Comments BNP (test code = BNP) 701 [facility] PantechCARShopReplyAC [id number] 06:18:00 Test Item Value Reference Range Interpretation Comments BNP (test code = BNP) 701 [facility] PantechCARShopReplyAC [id number] 06:18:00 Test Item Value Reference Range Interpretation Comments BNP (test code = BNP) 701 [facility] YmagisAC [id number] 06:18:00 Test Item Value Reference Range Interpretation Comments BNP (test code = BNP) 701 [facility] [employer] [id number] 06:18:00 Test Item Value Reference Range Interpretation Comments BNP (test code = BNP) 701 [facility] [employer] [id number] 04:59:27 Test Item Value Reference Range Interpretation Comments Troponin-I (test code 0.57 See_Comment [Auto mated message] The = Troponin-I) system which g enerated this result transmit rohit reference range : <=0.40. The reference r leo was not used to interpr et this result as reji l/abnormal. [facility] AGLOGIC2017-02-03 04:59:27 Test Item Value Reference Range Interpretation Comments Troponin-I (test code 0.57 See_Comment [Auto mated message] The = Troponin-I) system which g enerated this result transmit rohit reference range : <=0.40. The reference r leo was not used to interpr et this result as reji l/abnormal. [facility] AGLOGIC2017-02-03 04:59:27 Test Item Value Reference Range Interpretation Comments Troponin-I (test code 0.57 See_Comment [Auto mated message] The = Troponin-I) system which g enerated this result transmit rohit reference range : <=0.40. The reference r leo was not used to interpr et this result as reji l/abnormal. [facility] AGLOGIC2017-02-03 04:59:27 Test Item Value Reference Range Interpretation Comments Troponin-I (test code 0.57 See_Comment [Auto mated message] The = Troponin-I) system which g enerated this result transmit rohit reference range : <=0.40. The reference r leo was not used to interpr et this result as reji l/abnormal. [facility] CenterAffinegy [id number] 04:59:27 Test Item Value Reference Range Interpretation Comments Troponin-I (test code 0.57 See_Comment [Auto mated message] The = Troponin-I) system which g enerated this result transmit rohit reference range : <=0.40. The reference r leo was not used to interpr et this result as reji l/abnormal. [facility] [employer] [id number] 10:22:00 Test Item Value Reference Range Interpretation Comments BNP (test code = BNP) 526 [facility] [employer] [id number] 10:22:00 Test Item Value Reference Range Interpretation Comments Magnesium Lvl (test code = Magnesium 2.1 1.8-2.4 Lvl) [facility] [employer]2016-12-26 10:22:00 Test Item Value Reference Range Interpretation Comments Glucose Lvl (test code = Glucose Lvl) 117 70-99 [facility] [employer] [id number] 10:22:00 Test Item Value Reference Range Interpretation Comments BUN (test code = BUN) 41 7-22 [facility] [employer] [id number] 10:22:00 Test Item Value Reference Range Interpretation Comments Creatinine Lvl (test code = Creatinine 2.00 0.50-1.40 Lvl) [facility] [employer]2016-12-26 10:22:00 Test Item Value Reference Range Interpretation Comments Calcium Lvl (test code = Calcium Lvl) 9.0 8.5-10.5 [facility] [employer] [id number] 10:22:00 Test Item Value Reference Range Interpretation Comments Chloride Lvl (test code = Chloride Lvl) 102 95-109 [facility] [employer] [id number] 10:22:00 Test Item Value Reference Range Interpretation Comments CO2 (test code = CO2) 33 24-32 [facility] [employer] [id number] 10:22:00 Test Item Value Reference Range Interpretation Comments Sodium Lvl (test code = Sodium Lvl) 144 135-145 [facility] [employer] [id number] 10:22:00 Test Item Value Reference Range Interpretation Comments Potassium Lvl (test code = Potassium 4.0 3.5-5.1 Lvl) [facility]2016-12-26 10:22:00 Test Item Value Reference Range Interpretation Comments eGFR (test code = eGFR) 32 [facility]2016-12-26 10:22:00 Test Item Value Reference Range Interpretation Comments AGAP (test code = AGAP) 13.0 10.0-20.0 [facility]2016-12-26 10:22:00 Test Item Value Reference Range Interpretation Comments Phosphorus (test code = Phosphorus) 4.6 2.5-4.5 [facility] CenterWhkobkaHIWCYYTNDQ6330-37-04 10:22:00 Test Item Value Reference Range Interpretation Comments RBC (test code = RBC) 3.68 4.20-5.40 [place] [id number] 10:22:00 Test Item Value Reference Range Interpretation Comments Hgb (test code = Hgb) 9.9 12.0-16.0 [facility] CenterUbgxtdsRKCIFSLGHX6580-81-36 10:22:00 Test Item Value Reference Range Interpretation Comments MCH (test code = MCH) 26.8 pg 27.0-31.0 [facility] CenterIxxedlwVNRWONRAHI1702-21-00 10:22:00 Test Item Value Reference Range Interpretation Comments MCHC (test code = MCHC) 34.2 32.0-36.0 [place] [id number] 10:22:00 Test Item Value Reference Range Interpretation Comments MCV (test code = MCV) 78.3 80.0-98.0 [place] 216276-12-26 10:22:00 Test Item Value Reference Range Interpretation Comments Hct (test code = Hct) 28.8 36.0-48.0 [facility] CenterZquycusGBQXPXYJVJ9185-02-85 10:22:00 Test Item Value Reference Range Interpretation Comments Platelet (test code = Platelet) 191 133-450 [facility] CenterNszvfaaUSZQSYCDSA2310-86-33 10:22:00 Test Item Value Reference Range Interpretation Comments MPV (test code = MPV) 9.5 7.4-10.4 [facility] Cent[id number] 10:22:00 Test Item Value Reference Range Interpretation Comments RDW (test code = RDW) 15.3 11.5-14.5 [facility] CenterLelvqstSXDIJDEOIH2074-68-48 10:22:00 Test Item Value Reference Range Interpretation Comments WBC (test code = WBC) 5.6 3.7-10.4 [facility] [id number] 10:22:00 Test Item Value Reference Range Interpretation Comments Eosinophils # (test code 0.5 See_Comment [A utomated message] The = Eosinophils #) system whic h generated this result tra nsmitted reference range : <=0.5. The reference r leo was not used to int erpret this result as normal/abnormal . [facility] CenterIqbqrncXUTCYMZDEZ2479-48-22 10:22:00 Test Item Value Reference Range Interpretation Comments Microcyte (test code = 1+ *ABN*(06/15/16 Microcyte) 4:22 AM) [facility] Cent[id number] 10:22:00 Test Item Value Reference Range Interpretation Comments Basophils # (test code 0.1 See_Comment [Aut omated message] The = Basophils #) system which generated this result tra nsmitted reference range : <=0.2. The reference r leo was not used to int erpret this result as normal/abnormal . [facility] CenterNhisjocIBEYLCLVYV8743-18-89 10:22:00 Test Item Value Reference Range Interpretation Comments Lymphocytes (test code = Lymphocytes) 33.5 20.0-40.0 [facility] CenterJhcpijlBRKRRTUNBB2516-50-89 10:22:00 Test Item Value Reference Range Interpretation Comments Segs (test code = Segs) 47.6 45.0-75.0 [facility] CenterApbruhfQKITJSJXGL4188-53-11 10:22:00 Test Item Value Reference Range Interpretation Comments Monocytes (test code = Monocytes) 8.4 2.0-12.0 [facility] CenterDifvzbqXUYSCDEYPE7653-02-40 10:22:00 Test Item Value Reference Range Interpretation Comments Eosinophils (test code = 9.4 See_Comment [A utomated message] The Eosinophils) system which ge nerated this result tra nsmitted reference range : <=4.0. The reference r leo was not used to int erpret this result as normal/abnormal . [facility] CenterRaxzqcmKPTGWZKBDB4589-71-49 10:22:00 Test Item Value Reference Range Interpretation Comments Segs-Bands # (test code = Segs-Bands #) 2.6 1.5-8.1 [facility]VvoutkdDKXSZQABXO5995-68-35 10:22:00 Test Item Value Reference Range Interpretation Comments Lymphocytes # (test code = Lymphocytes 1.9 1.0-5.5 #) [facility] CenterWyxnxpcLGMQAFBLME4616-89-09 10:22:00 Test Item Value Reference Range Interpretation Comments Basophils (test code = 1.1 See_Comment [Aut omated message] The Basophils) system which ge nerated this result tra nsmitted reference range : <=1.0. The reference r leo was not used to int erpret this result as normal/abnormal . [facility] CenterFjhmpuaZWBWVUVIZZ5621-83-07 10:22:00 Test Item Value Reference Range Interpretation Comments Monocytes # (test code 0.5 See_Comment [Aut omated message] The = Monocytes #) system which generated this result tra nsmitted reference range : <=0.8. The reference r leo was not used to int erpret this result as normal/abnormal . [facility] CenterCARDIAC [id number] 10:22:00 Test Item Value Reference Range Interpretation Comments BNP (test code = BNP) 526 [facility] [id number] 10:22:00 Test Item Value Reference Range Interpretation Comments Magnesium Lvl (test code = Magnesium 2.1 1.8-2.4 Lvl) [facility]2016-12-26 10:22:00 Test Item Value Reference Range Interpretation Comments Glucose Lvl (test code = Glucose Lvl) 117 70-99 [facility]2016-12-26 10:22:00 Test Item Value Reference Range Interpretation Comments BUN (test code = BUN) 41 7-22 [facility]2016-12-26 10:22:00 Test Item Value Reference Range Interpretation Comments Creatinine Lvl (test code = Creatinine 2.00 0.50-1.40 Lvl) [facility]2016-12-26 10:22:00 Test Item Value Reference Range Interpretation Comments Calcium Lvl (test code = Calcium Lvl) 9.0 8.5-10.5 [facility]2016-12-26 10:22:00 Test Item Value Reference Range Interpretation Comments Chloride Lvl (test code = Chloride Lvl) 102 95-109 [facility] CenterSnappyTV [id number] 10:22:00 Test Item Value Reference Range Interpretation Comments CO2 (test code = CO2) 33 24-32 [facility]2016-12-26 10:22:00 Test Item Value Reference Range Interpretation Comments Sodium Lvl (test code = Sodium Lvl) 144 135-145 [facility]2016-12-26 10:22:00 Test Item Value Reference Range Interpretation Comments Potassium Lvl (test code = Potassium 4.0 3.5-5.1 Lvl) [facility]2016-12-26 10:22:00 Test Item Value Reference Range Interpretation Comments eGFR (test code = eGFR) 32 [facility]2016-12-26 10:22:00 Test Item Value Reference Range Interpretation Comments AGAP (test code = AGAP) 13.0 10.0-20.0 [facility]2016-12-26 10:22:00 Test Item Value Reference Range Interpretation Comments Phosphorus (test code = Phosphorus) 4.6 2.5-4.5 [facility] CenterNpvaxusXODUDEHRYQ5344-21-04 10:22:00 Test Item Value Reference Range Interpretation Comments RBC (test code = RBC) 3.68 4.20-5.40 [facility] CenterGwjmkbwCFLFYSZKZY8442-71-38 10:22:00 Test Item Value Reference Range Interpretation Comments Hgb (test code = Hgb) 9.9 12.0-16.0 [facility] CenterCyqkfkmLDFRQGOKIZ6296-39-02 10:22:00 Test Item Value Reference Range Interpretation Comments MCH (test code = MCH) 26.8 pg 27.0-31.0 [facility] CenterWzamgfbEEFVKXNOIJ1581-41-69 10:22:00 Test Item Value Reference Range Interpretation Comments MCHC (test code = MCHC) 34.2 32.0-36.0 [facility] CenterCwmrqjrQRRUMVTQAJ8800-03-42 10:22:00 Test Item Value Reference Range Interpretation Comments MCV (test code = MCV) 78.3 80.0-98.0 [place] 216276-12-26 10:22:00 Test Item Value Reference Range Interpretation Comments Hct (test code = Hct) 28.8 36.0-48.0 [facility] CenterGisiowhJXVVMHMTXO7783-17-84 10:22:00 Test Item Value Reference Range Interpretation Comments Platelet (test code = Platelet) 191 133-450 [facility] CenterEquxrooENNRZYQENH7139-83-08 10:22:00 Test Item Value Reference Range Interpretation Comments MPV (test code = MPV) 9.5 7.4-10.4 [facility] CenterUspqyygBUTXSSAAFE4595-60-22 10:22:00 Test Item Value Reference Range Interpretation Comments RDW (test code = RDW) 15.3 11.5-14.5 [facility] CenterDapwahkVLWKNSPAAH1517-07-01 10:22:00 Test Item Value Reference Range Interpretation Comments WBC (test code = WBC) 5.6 3.7-10.4 [facility] CenterDmufdqxJWNMJIQJZM6298-92-52 10:22:00 Test Item Value Reference Range Interpretation Comments Eosinophils # (test code 0.5 See_Comment [A utomated message] The = Eosinophils #) system whic h generated this result tra nsmitted reference range : <=0.5. The reference r leo was not used to int erpret this result as normal/abnormal . [facility] CenterRpgmxrfPQBVNNPLOG0082-35-83 10:22:00 Test Item Value Reference Range Interpretation Comments Microcyte (test code = 1+ *ABN*(06/15/16 Microcyte) 4:22 AM) [facility] CenterVqetjmbXUUIXDQWMZ4371-98-56 10:22:00 Test Item Value Reference Range Interpretation Comments Basophils # (test code 0.1 See_Comment [Aut omated message] The = Basophils #) system which generated this result tra nsmitted reference range : <=0.2. The reference r leo was not used to int erpret this result as normal/abnormal . [facility] CenterIifuazuKFWBBMUKBC0813-08-33 10:22:00 Test Item Value Reference Range Interpretation Comments Lymphocytes (test code = Lymphocytes) 33.5 20.0-40.0 [facility] CenterIhljdplOVBMPFYLOP3158-35-08 10:22:00 Test Item Value Reference Range Interpretation Comments Segs (test code = Segs) 47.6 45.0-75.0 [facility] CenterRnqkuhyWPCRMOBOLX1256-34-27 10:22:00 Test Item Value Reference Range Interpretation Comments Monocytes (test code = Monocytes) 8.4 2.0-12.0 [facility] CenterRyitkxnCNMXLHLKPQ1687-08-08 10:22:00 Test Item Value Reference Range Interpretation Comments Eosinophils (test code = 9.4 See_Comment [A utomated message] The Eosinophils) system which ge nerated this result tra nsmitted reference range : <=4.0. The reference r leo was not used to int erpret this result as normal/abnormal . [facility] CenterZenatywVQJTYEHBQM0700-82-66 10:22:00 Test Item Value Reference Range Interpretation Comments Segs-Bands # (test code = Segs-Bands #) 2.6 1.5-8.1 [facility] CenterKpztfjtKCMOFDBZNZ9949-22-26 10:22:00 Test Item Value Reference Range Interpretation Comments Lymphocytes # (test code = Lymphocytes 1.9 1.0-5.5 #) [facility] CenterExsqaidAYMQYDBKKR4103-34-11 10:22:00 Test Item Value Reference Range Interpretation Comments Basophils (test code = 1.1 See_Comment [Aut omated message] The Basophils) system which ge nerated this result tra nsmitted reference range : <=1.0. The reference r leo was not used to int erpret this result as normal/abnormal . [facility] CenterRsidwhrHILDCBWRTX4286-27-74 10:22:00 Test Item Value Reference Range Interpretation Comments Monocytes # (test code 0.5 See_Comment [Aut omated message] The = Monocytes #) system which generated this result tra nsmitted reference range : <=0.8. The reference r leo was not used to int erpret this result as normal/abnormal . [facility]JJ[facility]PSH4962-30-22 10:22:00 Test Item Value Reference Range Interpretation Comments BNP (test code = BNP) 526 [facility]2016-12-26 10:22:00 Test Item Value Reference Range Interpretation Comments Magnesium Lvl (test code = Magnesium 2.1 1.8-2.4 Lvl) [facility]2016-12-26 10:22:00 Test Item Value Reference Range Interpretation Comments Glucose Lvl (test code = Glucose Lvl) 117 70-99 [facility]2016-12-26 10:22:00 Test Item Value Reference Range Interpretation Comments BUN (test code = BUN) 41 7-22 [facility]2016-12-26 10:22:00 Test Item Value Reference Range Interpretation Comments Creatinine Lvl (test code = Creatinine 2.00 0.50-1.40 Lvl) [facility]2016-12-26 10:22:00 Test Item Value Reference Range Interpretation Comments Calcium Lvl (test code = Calcium Lvl) 9.0 8.5-10.5 [facility]2016-12-26 10:22:00 Test Item Value Reference Range Interpretation Comments Chloride Lvl (test code = Chloride Lvl) 102 95-109 [facility]2016-12-26 10:22:00 Test Item Value Reference Range Interpretation Comments CO2 (test code = CO2) 33 24-32 [facility]2016-12-26 10:22:00 Test Item Value Reference Range Interpretation Comments Sodium Lvl (test code = Sodium Lvl) 144 135-145 [facility]2016-12-26 10:22:00 Test Item Value Reference Range Interpretation Comments Potassium Lvl (test code = Potassium 4.0 3.5-5.1 Lvl) [facility]2016-12-26 10:22:00 Test Item Value Reference Range Interpretation Comments eGFR (test code = eGFR) 32 [facility]2016-12-26 10:22:00 Test Item Value Reference Range Interpretation Comments AGAP (test code = AGAP) 13.0 10.0-20.0 [facility]2016-12-26 10:22:00 Test Item Value Reference Range Interpretation Comments Phosphorus (test code = Phosphorus) 4.6 2.5-4.5 [facility] CenterLbpspuyHJMDXVABSE1542-14-61 10:22:00 Test Item Value Reference Range Interpretation Comments RBC (test code = RBC) 3.68 4.20-5.40 [facility] CenterUivenkfGZPYVSILMV2082-11-39 10:22:00 Test Item Value Reference Range Interpretation Comments Hgb (test code = Hgb) 9.9 12.0-16.0 [facility] CenterUpohmrhVQIKBLTOIB1899-27-51 10:22:00 Test Item Value Reference Range Interpretation Comments MCH (test code = MCH) 26.8 pg 27.0-31.0 [facility] CenterEuyaapyBHWCHGQGYE0109-19-87 10:22:00 Test Item Value Reference Range Interpretation Comments MCHC (test code = MCHC) 34.2 32.0-36.0 [facility] CenterIsznnpbSHBPLDUTPB1003-43-27 10:22:00 Test Item Value Reference Range Interpretation Comments MCV (test code = MCV) 78.3 80.0-98.0 [facility] CenterWvzdhubURLDDJNZRT5398-25-74 10:22:00 Test Item Value Reference Range Interpretation Comments Hct (test code = Hct) 28.8 36.0-48.0 [facility] CenterNdmvkqdJAMGJUUKMY5202-77-09 10:22:00 Test Item Value Reference Range Interpretation Comments Platelet (test code = Platelet) 191 133-450 [facility] CenterBqtcwkiNWMRSYRSCS8484-56-30 10:22:00 Test Item Value Reference Range Interpretation Comments MPV (test code = MPV) 9.5 7.4-10.4 [facility] CenterDlcutdsPDMUEDGRUL7850-53-68 10:22:00 Test Item Value Reference Range Interpretation Comments RDW (test code = RDW) 15.3 11.5-14.5 [facility] CenterRhtxsoaJVVEYQVKPF5475-77-46 10:22:00 Test Item Value Reference Range Interpretation Comments WBC (test code = WBC) 5.6 3.7-10.4 [facility] CenterPbjeortMPVJSOTTNQ9879-86-39 10:22:00 Test Item Value Reference Range Interpretation Comments Eosinophils # (test code 0.5 See_Comment [A utomated message] The = Eosinophils #) system whic h generated this result tra nsmitted reference range : <=0.5. The reference r leo was not used to int erpret this result as normal/abnormal . [facility] CenterLittscrMHDIYIXIFJ6054-93-24 10:22:00 Test Item Value Reference Range Interpretation Comments Microcyte (test code = 1+ *ABN*(06/15/16 Microcyte) 4:22 AM) [facility] CenterFtaopscSQLSAYKRSF3233-74-51 10:22:00 Test Item Value Reference Range Interpretation Comments Basophils # (test code 0.1 See_Comment [Aut omated message] The = Basophils #) system which generated this result tra nsmitted reference range : <=0.2. The reference r leo was not used to int erpret this result as normal/abnormal . [facility] CenterUrepwmtJQAFWQDHWA4449-35-72 10:22:00 Test Item Value Reference Range Interpretation Comments Lymphocytes (test code = Lymphocytes) 33.5 20.0-40.0 [facility] CenterWemlymuUQUIREZAXJ2635-24-82 10:22:00 Test Item Value Reference Range Interpretation Comments Segs (test code = Segs) 47.6 45.0-75.0 [facility] CenterEymbqbzYWJWNEIZHI2770-90-78 10:22:00 Test Item Value Reference Range Interpretation Comments Monocytes (test code = Monocytes) 8.4 2.0-12.0 [facility] CenterObbqhukPWIJURYSXQ9599-92-15 10:22:00 Test Item Value Reference Range Interpretation Comments Eosinophils (test code = 9.4 See_Comment [A utomated message] The Eosinophils) system which ge nerated this result tra nsmitted reference range : <=4.0. The reference r leo was not used to int erpret this result as normal/abnormal . [facility] CenterNdrogdtKJYLYWVTVI0095-36-24 10:22:00 Test Item Value Reference Range Interpretation Comments Segs-Bands # (test code = Segs-Bands #) 2.6 1.5-8.1 [facility] CenterGwenzttISUPTTLQNW1029-30-47 10:22:00 Test Item Value Reference Range Interpretation Comments Lymphocytes # (test code = Lymphocytes 1.9 1.0-5.5 #) [facility] CenterZxinmysQYNKEAIECB3451-88-89 10:22:00 Test Item Value Reference Range Interpretation Comments Basophils (test code = 1.1 See_Comment [Aut omated message] The Basophils) system which ge nerated this result tra nsmitted reference range : <=1.0. The reference r leo was not used to int erpret this result as normal/abnormal . [facility] CenterEleabxvDWZXZWYLPW4960-82-67 10:22:00 Test Item Value Reference Range Interpretation Comments Monocytes # (test code 0.5 See_Comment [Aut omated message] The = Monocytes #) system which generated this result tra nsmitted reference range : <=0.8. The reference r leo was not used to int erpret this result as normal/abnormal . [facility]annCARDIAC SLWHKBD0481-00-67 10:22:00 Test Item Value Reference Range Interpretation Comments BNP (test code = BNP) 526 [facility] CenterSnappyTV BCJDD3126-07-25 10:22:00 Test Item Value Reference Range Interpretation Comments Magnesium Lvl (test code = Magnesium 2.1 1.8-2.4 Lvl) [facility] QPXNI5161-26-61 10:22:00 Test Item Value Reference Range Interpretation Comments Glucose Lvl (test code = Glucose Lvl) 117 70-99 [facility] CenterSnappyTV VVHFD8535-56-30 10:22:00 Test Item Value Reference Range Interpretation Comments BUN (test code = BUN) 41 7-22 [facility]2016-12-26 10:22:00 Test Item Value Reference Range Interpretation Comments Creatinine Lvl (test code = Creatinine 2.00 0.50-1.40 Lvl) [facility]2016-12-26 10:22:00 Test Item Value Reference Range Interpretation Comments Calcium Lvl (test code = Calcium Lvl) 9.0 8.5-10.5 [facility]2016-12-26 10:22:00 Test Item Value Reference Range Interpretation Comments Chloride Lvl (test code = Chloride Lvl) 102 95-109 [facility]2016-12-26 10:22:00 Test Item Value Reference Range Interpretation Comments CO2 (test code = CO2) 33 24-32 [facility]2016-12-26 10:22:00 Test Item Value Reference Range Interpretation Comments Sodium Lvl (test code = Sodium Lvl) 144 135-145 [facility]2016-12-26 10:22:00 Test Item Value Reference Range Interpretation Comments Potassium Lvl (test code = Potassium 4.0 3.5-5.1 Lvl) [facility]2016-12-26 10:22:00 Test Item Value Reference Range Interpretation Comments eGFR (test code = eGFR) 32 [facility]2016-12-26 10:22:00 Test Item Value Reference Range Interpretation Comments AGAP (test code = AGAP) 13.0 10.0-20.0 [facility]2016-12-26 10:22:00 Test Item Value Reference Range Interpretation Comments Phosphorus (test code = Phosphorus) 4.6 2.5-4.5 [facility] CenterMkzbhflOSLMTDUEMR5694-91-53 10:22:00 Test Item Value Reference Range Interpretation Comments RBC (test code = RBC) 3.68 4.20-5.40 [facility] CenterHfuhqiaEORVWLJIUF0241-37-28 10:22:00 Test Item Value Reference Range Interpretation Comments Hgb (test code = Hgb) 9.9 12.0-16.0 [facility] CenterLlhdlmwZWUMRYVFQM2545-23-42 10:22:00 Test Item Value Reference Range Interpretation Comments MCH (test code = MCH) 26.8 pg 27.0-31.0 [place] 216276-12-26 10:22:00 Test Item Value Reference Range Interpretation Comments MCHC (test code = MCHC) 34.2 32.0-36.0 [facility] CenterPtxpdatEZLMBTGNSD9881-53-32 10:22:00 Test Item Value Reference Range Interpretation Comments MCV (test code = MCV) 78.3 80.0-98.0 [facility] CenterDukaqgtBCJWESCBQM0969-68-41 10:22:00 Test Item Value Reference Range Interpretation Comments Hct (test code = Hct) 28.8 36.0-48.0 [facility] CenterQuhdpdfOUCZWISPCC9503-08-29 10:22:00 Test Item Value Reference Range Interpretation Comments Platelet (test code = Platelet) 191 133-450 [facility] CenterYzrvbukOBVHAJMMMO3975-84-63 10:22:00 Test Item Value Reference Range Interpretation Comments MPV (test code = MPV) 9.5 7.4-10.4 [facility] CenterFrwbzyyFGRMYBOOQY2076-82-13 10:22:00 Test Item Value Reference Range Interpretation Comments RDW (test code = RDW) 15.3 11.5-14.5 [facility] CenterUucxojbESRGSJSRDB8380-48-26 10:22:00 Test Item Value Reference Range Interpretation Comments WBC (test code = WBC) 5.6 3.7-10.4 [facility] CenterXpspjqiSRVCFTHIGG9407-23-25 10:22:00 Test Item Value Reference Range Interpretation Comments Eosinophils # (test code 0.5 See_Comment [A utomated message] The = Eosinophils #) system [facility] h generated this result tra nsmitted reference range : <=0.5. The reference r leo was not used to int erpret this result as normal/abnormal . [facility] CenterXesbszdQOAYCVASJB5065-59-66 10:22:00 Test Item Value Reference Range Interpretation Comments Microcyte (test code = 1+ *ABN*(06/15/16 Microcyte) 4:22 AM) [facility] CenterYbigzgiCFYPGHYJOU3174-91-93 10:22:00 Test Item Value Reference Range Interpretation Comments Basophils # (test code 0.1 See_Comment [Aut omated message] The = Basophils #) system which generated this result tra nsmitted reference range : <=0.2. The reference r leo was not used to int erpret this result as normal/abnormal . [facility] CenterAknkokyBUDNSQTAVM3440-67-44 10:22:00 Test Item Value Reference Range Interpretation Comments Lymphocytes (test code = Lymphocytes) 33.5 20.0-40.0 [facility] CenterNpegeyzXNSOZFBUMR5295-05-10 10:22:00 Test Item Value Reference Range Interpretation Comments Segs (test code = Segs) 47.6 45.0-75.0 [facility] CenterAdsfsqtEVFXBRCNMO6039-78-37 10:22:00 Test Item Value Reference Range Interpretation Comments Monocytes (test code = Monocytes) 8.4 2.0-12.0 [facility] CenterRgbcvlaRORDXLOQWZ6793-22-71 10:22:00 Test Item Value Reference Range Interpretation Comments Eosinophils (test code = 9.4 See_Comment [A utomated message] The Eosinophils) system which ge nerated this result tra nsmitted reference range : <=4.0. The reference r leo was not used to int erpret this result as normal/abnormal . [facility] CenterIyupwsjTGVGVJUXZD1082-23-33 10:22:00 Test Item Value Reference Range Interpretation Comments Segs-Bands # (test code = Segs-Bands #) 2.6 1.5-8.1 [facility] CenterOzjmfezZJQPEMSAWP8100-85-05 10:22:00 Test Item Value Reference Range Interpretation Comments Lymphocytes # (test code = Lymphocytes 1.9 1.0-5.5 #) [facility] CenterDmwrkmoGGSNBUUYAI7792-31-62 10:22:00 Test Item Value Reference Range Interpretation Comments Basophils (test code = 1.1 See_Comment [Aut omated message] The Basophils) system which ge nerated this result tra nsmitted reference range : <=1.0. The reference r leo was not used to int erpret this result as normal/abnormal . [facility] CenterEjpirnbTFZRASRZPA2660-75-19 10:22:00 Test Item Value Reference Range Interpretation Comments Monocytes # (test code 0.5 See_Comment [Aut omated message] The = Monocytes #) system which generated this result tra nsmitted reference range : <=0.8. The reference r leo was not used to int erpret this result as normal/abnormal . [facility] CenterCARDIAC FUMIZLV5389-94-66 10:22:00 Test Item Value Reference Range Interpretation Comments BNP (test code = BNP) 526 [facility] CenterCHEM KJPRB9384-18-36 10:22:00 Test Item Value Reference Range Interpretation Comments Magnesium Lvl (test code = Magnesium 2.1 1.8-2.4 Lvl) [facility]2016-12-26 10:22:00 Test Item Value Reference Range Interpretation Comments Glucose Lvl (test code = Glucose Lvl) 117 70-99 [facility]2016-12-26 10:22:00 Test Item Value Reference Range Interpretation Comments BUN (test code = BUN) 41 7-22 [facility]2016-12-26 10:22:00 Test Item Value Reference Range Interpretation Comments Creatinine Lvl (test code = Creatinine 2.00 0.50-1.40 Lvl) [facility]2016-12-26 10:22:00 Test Item Value Reference Range Interpretation Comments Calcium Lvl (test code = Calcium Lvl) 9.0 8.5-10.5 [facility]2016-12-26 10:22:00 Test Item Value Reference Range Interpretation Comments Chloride Lvl (test code = Chloride Lvl) 102 95-109 [facility]2016-12-26 10:22:00 Test Item Value Reference Range Interpretation Comments CO2 (test code = CO2) 33 24-32 [facility]2016-12-26 10:22:00 Test Item Value Reference Range Interpretation Comments Sodium Lvl (test code = Sodium Lvl) 144 135-145 [facility]2016-12-26 10:22:00 Test Item Value Reference Range Interpretation Comments Potassium Lvl (test code = Potassium 4.0 3.5-5.1 Lvl) [facility]2016-12-26 10:22:00 Test Item Value Reference Range Interpretation Comments eGFR (test code = eGFR) 32 [facility]2016-12-26 10:22:00 Test Item Value Reference Range Interpretation Comments AGAP (test code = AGAP) 13.0 10.0-20.0 [facility]2016-12-26 10:22:00 Test Item Value Reference Range Interpretation Comments Phosphorus (test code = Phosphorus) 4.6 2.5-4.5 [facility] CenterRjbomvvCDRJNKIKXR4451-21-28 10:22:00 Test Item Value Reference Range Interpretation Comments RBC (test code = RBC) 3.68 4.20-5.40 [facility] CenterCtafzgvYGZDBHWARM7367-50-12 10:22:00 Test Item Value Reference Range Interpretation Comments Hgb (test code = Hgb) 9.9 12.0-16.0 [facility] CenterLcjylueBLFNBFCISV4131-19-09 10:22:00 Test Item Value Reference Range Interpretation Comments MCH (test code = MCH) 26.8 pg 27.0-31.0 [facility] CenterJtoxzzgHTNMGSYWKO4112-34-84 10:22:00 Test Item Value Reference Range Interpretation Comments MCHC (test code = MCHC) 34.2 32.0-36.0 [facility] CenterOcbnksqMDRKMQSTIJ4678-31-91 10:22:00 Test Item Value Reference Range Interpretation Comments MCV (test code = MCV) 78.3 80.0-98.0 [facility] CenterTtnpbmlCVQAGFPATE2647-25-56 10:22:00 Test Item Value Reference Range Interpretation Comments Hct (test code = Hct) 28.8 36.0-48.0 [facility] CenterHesjxliUYSVWCGHEJ9365-62-72 10:22:00 Test Item Value Reference Range Interpretation Comments Platelet (test code = Platelet) 191 133-450 [facility] CenterLyhkynhQGRZYILAPJ9403-61-99 10:22:00 Test Item Value Reference Range Interpretation Comments MPV (test code = MPV) 9.5 7.4-10.4 [facility] CenterMruqszdULFYRDKVOE4637-09-50 10:22:00 Test Item Value Reference Range Interpretation Comments RDW (test code = RDW) 15.3 11.5-14.5 [facility] CenterHjnbgkgXARGSOUBXV1000-94-72 10:22:00 Test Item Value Reference Range Interpretation Comments WBC (test code = WBC) 5.6 3.7-10.4 [facility] CenterXnizqhvNLAIWNOXIJ6103-98-72 10:22:00 Test Item Value Reference Range Interpretation Comments Eosinophils # (test code 0.5 See_Comment [A utomated message] The = Eosinophils #) system whic h generated this result tra nsmitted reference range : <=0.5. The reference r leo was not used to int erpret this result as normal/abnormal . [facility] CenterCnbzmkcRQUCYYOWDN9251-83-48 10:22:00 Test Item Value Reference Range Interpretation Comments Microcyte (test code = 1+ *ABN*(06/15/16 Microcyte) 4:22 AM) [facility] CenterBibspcbLBRVMPHLIH2326-00-22 10:22:00 Test Item Value Reference Range Interpretation Comments Basophils # (test code 0.1 See_Comment [Aut omated message] The = Basophils #) system which generated this result tra nsmitted reference range : <=0.2. The reference r leo was not used to int erpret this result as normal/abnormal . [facility] CenterDvccjfvMTBPBTRSMS0221-53-04 10:22:00 Test Item Value Reference Range Interpretation Comments Lymphocytes (test code = Lymphocytes) 33.5 20.0-40.0 [facility] CenterGllrhsvMLOWNPYNQM9958-90-89 10:22:00 Test Item Value Reference Range Interpretation Comments Segs (test code = Segs) 47.6 45.0-75.0 [facility] CenterMelttzfEHRVGUFEWU8760-81-41 10:22:00 Test Item Value Reference Range Interpretation Comments Monocytes (test code = Monocytes) 8.4 2.0-12.0 [facility] CenterQxfpxsdJCTGLFQDNU6901-36-34 10:22:00 Test Item Value Reference Range Interpretation Comments Eosinophils (test code = 9.4 See_Comment [A utomated message] The Eosinophils) system which ge nerated this result tra nsmitted reference range : <=4.0. The reference r leo was not used to int erpret this result as normal/abnormal . [facility] CenterStdnsnvHCRWOIJZHG1979-44-00 10:22:00 Test Item Value Reference Range Interpretation Comments Segs-Bands # (test code = Segs-Bands #) 2.6 1.5-8.1 [facility] CenterEkcvgcqUCSWGRZJLB7621-04-82 10:22:00 Test Item Value Reference Range Interpretation Comments Lymphocytes # (test code = Lymphocytes 1.9 1.0-5.5 #) [facility] CenterBhbpyuaFAGLWUTSMA4100-16-38 10:22:00 Test Item Value Reference Range Interpretation Comments Basophils (test code = 1.1 See_Comment [Aut omated message] The Basophils) system which ge nerated this result tra nsmitted reference range : <=1.0. The reference r leo was not used to int erpret this result as normal/abnormal . [facility] CenterPznfatdOOVELCWUAW9529-38-61 10:22:00 Test Item Value Reference Range Interpretation Comments Monocytes # (test code 0.5 See_Comment [Aut omated message] The = Monocytes #) system which generated this result tra nsmitted reference range : <=0.8. The reference r leo was not used to int erpret this result as normal/abnormal . [facility]2016-12-25 11:03:00 Test Item Value Reference Range Interpretation Comments Phosphorus (test code = Phosphorus) 4.8 2.5-4.5 [facility]2016-12-25 11:03:00 Test Item Value Reference Range Interpretation Comments Magnesium Lvl (test code = Magnesium 2.0 1.8-2.4 Lvl) [facility]2016-12-25 11:03:00 Test Item Value Reference Range Interpretation Comments eGFR (test code = eGFR) 32 [facility]2016-12-25 11:03:00 Test Item Value Reference Range Interpretation Comments Chloride Lvl (test code = Chloride Lvl) 101 95-109 [facility]2016-12-25 11:03:00 Test Item Value Reference Range Interpretation Comments Potassium Lvl (test code = Potassium 4.4 3.5-5.1 Lvl) [facility]2016-12-25 11:03:00 Test Item Value Reference Range Interpretation Comments BUN (test code = BUN) 37 7-22 [facility]2016-12-25 11:03:00 Test Item Value Reference Range Interpretation Comments Glucose Lvl (test code = Glucose Lvl) 119 70-99 [facility]2016-12-25 11:03:00 Test Item Value Reference Range Interpretation Comments Creatinine Lvl (test code = Creatinine 2.00 0.50-1.40 Lvl) [facility]2016-12-25 11:03:00 Test Item Value Reference Range Interpretation Comments Sodium Lvl (test code = Sodium Lvl) 142 135-145 [facility]2016-12-25 11:03:00 Test Item Value Reference Range Interpretation Comments Calcium Lvl (test code = Calcium Lvl) 8.7 8.5-10.5 [facility]2016-12-25 11:03:00 Test Item Value Reference Range Interpretation Comments CO2 (test code = CO2) 32 24-32 [facility]2016-12-25 11:03:00 Test Item Value Reference Range Interpretation Comments AGAP (test code = AGAP) 13.4 10.0-20.0 [facility] CenterYlskkkuVJJWXYSYEK7757-66-65 11:03:00 Test Item Value Reference Range Interpretation Comments Eosinophils (test code = 10.3 See_Comment [A utomated message] The Eosinophils) system which ge nerated this result tra nsmitted reference range : <=4.0. The reference r leo was not used to int erpret this result as normal/abnormal . [facility] CenterHwmycrgBCLDWHXOJM5678-49-93 11:03:00 Test Item Value Reference Range Interpretation Comments Basophils # (test code 0.1 See_Comment [Aut omated message] The = Basophils #) system which generated this result tra nsmitted reference range : <=0.2. The reference r leo was not used to int erpret this result as normal/abnormal . [facility] CenterRxhykieRVVISWBNLM4748-54-88 11:03:00 Test Item Value Reference Range Interpretation Comments Eosinophils # (test code 0.5 See_Comment [A utomated message] The = Eosinophils #) system whic h generated this result tra nsmitted reference range : <=0.5. The reference r leo was not used to int erpret this result as normal/abnormal . [facility] CenterQpcozyjQSBIDHPWDM1867-09-20 11:03:00 Test Item Value Reference Range Interpretation Comments Monocytes # (test code 0.5 See_Comment [Aut omated message] The = Monocytes #) system which generated this result tra nsmitted reference range : <=0.8. The reference r leo was not used to int erpret this result as normal/abnormal . [facility] CenterObohetfAODAXKXHVX8757-09-26 11:03:00 Test Item Value Reference Range Interpretation Comments Segs-Bands # (test code = Segs-Bands #) 2.1 1.5-8.1 [facility] CenterCaqcehpWIODSOLFTL4269-60-50 11:03:00 Test Item Value Reference Range Interpretation Comments Basophils (test code = 1.2 See_Comment [Aut omated message] The Basophils) system which ge nerated this result tra nsmitted reference range : <=1.0. The reference r leo was not used to int erpret this result as normal/abnormal . [facility] CenterDknasqhIMAQFQCQWB7478-45-45 11:03:00 Test Item Value Reference Range Interpretation Comments Lymphocytes # (test code = Lymphocytes 1.9 1.0-5.5 #) [facility] CenterLjdkcmuICTWAOZIJJ7428-00-57 11:03:00 Test Item Value Reference Range Interpretation Comments Segs (test code = Segs) 42.5 45.0-75.0 [facility] CenterHmgucheQUGOGFEBXZ3335-68-65 11:03:00 Test Item Value Reference Range Interpretation Comments Lymphocytes (test code = Lymphocytes) 37.0 20.0-40.0 [facility] CenterNvcggdmDGHMCUBQMP0949-33-25 11:03:00 Test Item Value Reference Range Interpretation Comments Monocytes (test code = Monocytes) 9.0 2.0-12.0 [facility] CenterPeuihhjHUEUWFVIKS7237-11-59 11:03:00 Test Item Value Reference Range Interpretation Comments MPV (test code = MPV) 9.8 7.4-10.4 [facility] CenterMzrxgekLKIOHSACQW9962-76-21 11:03:00 Test Item Value Reference Range Interpretation Comments WBC (test code = WBC) 5.0 3.7-10.4 [facility] CenterYfainyaKBACJRTRHR2479-00-29 11:03:00 Test Item Value Reference Range Interpretation Comments RBC (test code = RBC) 3.57 4.20-5.40 [facility]OzumhhkUWHXAPQWHT4328-75-08 11:03:00 Test Item Value Reference Range Interpretation Comments Hgb (test code = Hgb) 9.4 12.0-16.0 [facility] CenterZcpgzerDRVOCMCEFS6858-24-68 11:03:00 Test Item Value Reference Range Interpretation Comments Hct (test code = Hct) 28.5 36.0-48.0 [facility] CenterKvorvsyZCQGLGCJYF6974-55-00 11:03:00 Test Item Value Reference Range Interpretation Comments Platelet (test code = Platelet) 183 133-450 [facility] CenterEhqgdjyQEDLGIXUTH5500-64-59 11:03:00 Test Item Value Reference Range Interpretation Comments MCV (test code = MCV) 79.9 80.0-98.0 [facility] CenterWzccqoqJNQYHQYQVR4236-16-63 11:03:00 Test Item Value Reference Range Interpretation Comments MCH (test code = MCH) 26.3 pg 27.0-31.0 [facility] CenterMdzzlztVEAEAZOPSQ1056-73-43 11:03:00 Test Item Value Reference Range Interpretation Comments MCHC (test code = MCHC) 33.0 32.0-36.0 [facility] CenterBexvugyCUAGQITYHF3461-03-17 11:03:00 Test Item Value Reference Range Interpretation Comments RDW (test code = RDW) 15.9 11.5-14.5 [facility]2016-12-25 11:03:00 Test Item Value Reference Range Interpretation Comments Phosphorus (test code = Phosphorus) 4.8 2.5-4.5 [facility]2016-12-25 11:03:00 Test Item Value Reference Range Interpretation Comments Magnesium Lvl (test code = Magnesium 2.0 1.8-2.4 Lvl) [facility]2016-12-25 11:03:00 Test Item Value Reference Range Interpretation Comments eGFR (test code = eGFR) 32 [facility]2016-12-25 11:03:00 Test Item Value Reference Range Interpretation Comments Chloride Lvl (test code = Chloride Lvl) 101 95-109 [facility]2016-12-25 11:03:00 Test Item Value Reference Range Interpretation Comments Potassium Lvl (test code = Potassium 4.4 3.5-5.1 Lvl) [facility]2016-12-25 11:03:00 Test Item Value Reference Range Interpretation Comments BUN (test code = BUN) 37 7-22 [facility]2016-12-25 11:03:00 Test Item Value Reference Range Interpretation Comments Glucose Lvl (test code = Glucose Lvl) 119 70-99 [facility]2016-12-25 11:03:00 Test Item Value Reference Range Interpretation Comments Creatinine Lvl (test code = Creatinine 2.00 0.50-1.40 Lvl) [facility]2016-12-25 11:03:00 Test Item Value Reference Range Interpretation Comments Sodium Lvl (test code = Sodium Lvl) 142 135-145 [facility]2016-12-25 11:03:00 Test Item Value Reference Range Interpretation Comments Calcium Lvl (test code = Calcium Lvl) 8.7 8.5-10.5 [facility]2016-12-25 11:03:00 Test Item Value Reference Range Interpretation Comments CO2 (test code = CO2) 32 24-32 [facility]2016-12-25 11:03:00 Test Item Value Reference Range Interpretation Comments AGAP (test code = AGAP) 13.4 10.0-20.0 [facility]LIEUMNPGF6225-[facility] 11:03:00 Test Item Value Reference Range Interpretation Comments Eosinophils (test code = 10.3 See_Comment [A utomated message] The Eosinophils) system which ge nerated this result tra nsmitted reference range : <=4.0. The reference r leo was not used to int erpret this result as normal/abnormal . [facility] CenterXispecsQQOAWAJLXU0548-50-73 11:03:00 Test Item Value Reference Range Interpretation Comments Basophils # (test code 0.1 See_Comment [Aut omated message] The = Basophils #) system which generated this result tra nsmitted reference range : <=0.2. The reference r leo was not used to int erpret this result as normal/abnormal . [facility] CenterZovkvofNVXKKTBPEG0607-82-92 11:03:00 Test Item Value Reference Range Interpretation Comments Eosinophils # (test code 0.5 See_Comment [A utomated message] The = Eosinophils #) system whic h generated this result tra nsmitted reference range : <=0.5. The reference r leo was not used to int erpret this result as normal/abnormal . [facility] CenterAgihoofJIVWYGZURN0367-62-60 11:03:00 Test Item Value Reference Range Interpretation Comments Monocytes # (test code 0.5 See_Comment [Aut omated message] The = Monocytes #) system which generated this result tra nsmitted reference range : <=0.8. The reference r leo was not used to int erpret this result as normal/abnormal . [facility] CenterWuydojrCAGOROOBUC3963-80-73 11:03:00 Test Item Value Reference Range Interpretation Comments Segs-Bands # (test code = Segs-Bands #) 2.1 1.5-8.1 [facility] CenterVrofkwvZDRFQWALMV3186-62-36 11:03:00 Test Item Value Reference Range Interpretation Comments Basophils (test code = 1.2 See_Comment [Aut omated message] The Basophils) system which ge nerated this result tra nsmitted reference range : <=1.0. The reference r leo was not used to int erpret this result as normal/abnormal . [facility] CenterKdgpytrDZRVIFVPXK5484-25-50 11:03:00 Test Item Value Reference Range Interpretation Comments Lymphocytes # (test code = Lymphocytes 1.9 1.0-5.5 #) [facility] CenterMalqpirTPJJDOKMUL5058-15-66 11:03:00 Test Item Value Reference Range Interpretation Comments Segs (test code = Segs) 42.5 45.0-75.0 [facility] CenterSdduawbNRJQRZSKTZ2333-92-18 11:03:00 Test Item Value Reference Range Interpretation Comments Lymphocytes (test code = Lymphocytes) 37.0 20.0-40.0 [facility] CenterDbaswuxDMCXCQGUEG5640-57-21 11:03:00 Test Item Value Reference Range Interpretation Comments Monocytes (test code = Monocytes) 9.0 2.0-12.0 [facility] CenterHipepglWTDTMZIZXT8784-46-38 11:03:00 Test Item Value Reference Range Interpretation Comments MPV (test code = MPV) 9.8 7.4-10.4 [facility] CenterCnrdfwoUGQEMNCDDG3672-46-46 11:03:00 Test Item Value Reference Range Interpretation Comments WBC (test code = WBC) 5.0 3.7-10.4 [facility] CenterNnaycmdHKAFEUFGQY6650-72-66 11:03:00 Test Item Value Reference Range Interpretation Comments RBC (test code = RBC) 3.57 4.20-5.40 [facility] CenterUtngyxiINDBZKZKFM0805-77-34 11:03:00 Test Item Value Reference Range Interpretation Comments Hgb (test code = Hgb) 9.4 12.0-16.0 [facility] CenterZgytuswZGSNXVEVZG3717-77-42 11:03:00 Test Item Value Reference Range Interpretation Comments Hct (test code = Hct) 28.5 36.0-48.0 [facility] CenterVgkiuleYHVOAVGXQT3900-86-30 11:03:00 Test Item Value Reference Range Interpretation Comments Platelet (test code = Platelet) 183 133-450 [facility] CenterXklqhpfVIIAEZELMF1647-25-37 11:03:00 Test Item Value Reference Range Interpretation Comments MCV (test code = MCV) 79.9 80.0-98.0 [facility] CenterXlyyqffLAEQIWGCQM1014-46-46 11:03:00 Test Item Value Reference Range Interpretation Comments MCH (test code = MCH) 26.3 pg 27.0-31.0 [facility] CenterBexcjywVGXEUIPUTY1871-49-28 11:03:00 Test Item Value Reference Range Interpretation Comments MCHC (test code = MCHC) 33.0 32.0-36.0 [facility] CenterFunxojsISRLATHCDN6241-57-11 11:03:00 Test Item Value Reference Range Interpretation Comments RDW (test code = RDW) 15.9 11.5-14.5 [facility]2016-12-25 11:03:00 Test Item Value Reference Range Interpretation Comments Phosphorus (test code = Phosphorus) 4.8 2.5-4.5 [facility]2016-12-25 11:03:00 Test Item Value Reference Range Interpretation Comments Magnesium Lvl (test code = Magnesium 2.0 1.8-2.4 Lvl) [facility]2016-12-25 11:03:00 Test Item Value Reference Range Interpretation Comments eGFR (test code = eGFR) 32 [facility]2016-12-25 11:03:00 Test Item Value Reference Range Interpretation Comments Chloride Lvl (test code = Chloride Lvl) 101 95-109 [facility]2016-12-25 11:03:00 Test Item Value Reference Range Interpretation Comments Potassium Lvl (test code = Potassium 4.4 3.5-5.1 Lvl) [facility]2016-12-25 11:03:00 Test Item Value Reference Range Interpretation Comments BUN (test code = BUN) 37 7-22 [facility]2016-12-25 11:03:00 Test Item Value Reference Range Interpretation Comments Glucose Lvl (test code = Glucose Lvl) 119 70-99 [facility]2016-12-25 11:03:00 Test Item Value Reference Range Interpretation Comments Creatinine Lvl (test code = Creatinine 2.00 0.50-1.40 Lvl) [facility]2016-12-25 11:03:00 Test Item Value Reference Range Interpretation Comments Sodium Lvl (test code = Sodium Lvl) 142 135-145 [facility]2016-12-25 11:03:00 Test Item Value Reference Range Interpretation Comments Calcium Lvl (test code = Calcium Lvl) 8.7 8.5-10.5 [facility]2016-12-25 11:03:00 Test Item Value Reference Range Interpretation Comments CO2 (test code = CO2) 32 24-32 [facility]2016-12-25 11:03:00 Test Item Value Reference Range Interpretation Comments AGAP (test code = AGAP) 13.4 10.0-20.0 [facility]MjsaoyiKHHHZIQXHX9221-44-27 11:03:00 Test Item Value Reference Range Interpretation Comments Eosinophils (test code = 10.3 See_Comment [A utomated message] The Eosinophils) system which ge nerated this result tra nsmitted reference range : <=4.0. The reference r leo was not used to int erpret this result as normal/abnormal . [facility] CenterTberifcSXOVIVDEGC9304-87-26 11:03:00 Test Item Value Reference Range Interpretation Comments Basophils # (test code 0.1 See_Comment [Aut omated message] The = Basophils #) system which generated this result tra nsmitted reference range : <=0.2. The reference r leo was not used to int erpret this result as normal/abnormal . [facility] CenterRpkfwhcGCCFBIVWZS5626-01-71 11:03:00 Test Item Value Reference Range Interpretation Comments Eosinophils # (test code 0.5 See_Comment [A utomated message] The = Eosinophils #) system whic h generated this result tra nsmitted reference range : <=0.5. The reference r leo was not used to int erpret this result as normal/abnormal . [facility] CenterSyfqvpyEPBJTUKLED9715-09-76 11:03:00 Test Item Value Reference Range Interpretation Comments Monocytes # (test code 0.5 See_Comment [Aut omated message] The = Monocytes #) system which generated this result tra nsmitted reference range : <=0.8. The reference r leo was not used to int erpret this result as normal/abnormal . [facility] CenterRnomlimMBRCLGWZIJ8728-68-99 11:03:00 Test Item Value Reference Range Interpretation Comments Segs-Bands # (test code = Segs-Bands #) 2.1 1.5-8.1 [facility] CenterAscpmeaOQDVKLZLKH9473-71-91 11:03:00 Test Item Value Reference Range Interpretation Comments Basophils (test code = 1.2 See_Comment [Aut omated message] The Basophils) system which ge nerated this result tra nsmitted reference range : <=1.0. The reference r leo was not used to int erpret this result as normal/abnormal . [facility] CenterKecrddsARKEUOVXTA2057-68-70 11:03:00 Test Item Value Reference Range Interpretation Comments Lymphocytes # (test code = Lymphocytes 1.9 1.0-5.5 #) [facility] CenterApaetjvUAXKQVQYTG4537-30-92 11:03:00 Test Item Value Reference Range Interpretation Comments Segs (test code = Segs) 42.5 45.0-75.0 [facility] CenterHvrhhkdLMVUBDAMDS0926-04-32 11:03:00 Test Item Value Reference Range Interpretation Comments Lymphocytes (test code = Lymphocytes) 37.0 20.0-40.0 [facility] CenterRxjpmtoGMHFCVGXDW8550-59-03 11:03:00 Test Item Value Reference Range Interpretation Comments Monocytes (test code = Monocytes) 9.0 2.0-12.0 [facility] CenterVwhenwiIBNHRXXNBE7275-32-30 11:03:00 Test Item Value Reference Range Interpretation Comments MPV (test code = MPV) 9.8 7.4-10.4 [facility] CenterDfwzzazWMDBFXNUWS0802-88-86 11:03:00 Test Item Value Reference Range Interpretation Comments WBC (test code = WBC) 5.0 3.7-10.4 [facility] CenterYolzopyEATUQZBEDJ6948-12-38 11:03:00 Test Item Value Reference Range Interpretation Comments RBC (test code = RBC) 3.57 4.20-5.40 [facility] CenterIzqzvdkVFVMPKTRJO9682-10-78 11:03:00 Test Item Value Reference Range Interpretation Comments Hgb (test code = Hgb) 9.4 12.0-16.0 [facility] CenterNzqygyuSMDXGRYBDN8327-21-71 11:03:00 Test Item Value Reference Range Interpretation Comments Hct (test code = Hct) 28.5 36.0-48.0 [facility] CenterJnlnglcRYIKTWLXJW2425-16-53 11:03:00 Test Item Value Reference Range Interpretation Comments Platelet (test code = Platelet) 183 133-450 [facility] CenterRptglrxZCSVXTLMNW9532-63-25 11:03:00 Test Item Value Reference Range Interpretation Comments MCV (test code = MCV) 79.9 80.0-98.0 [facility] CenterXulltlfVQIMJISZLD9085-28-00 11:03:00 Test Item Value Reference Range Interpretation Comments MCH (test code = MCH) 26.3 pg 27.0-31.0 [facility] CenterEbpierwHKIYHONKRY5034-95-75 11:03:00 Test Item Value Reference Range Interpretation Comments MCHC (test code = MCHC) 33.0 32.0-36.0 [facility] CenterBytljipCUGVFBMPTU1570-13-93 11:03:00 Test Item Value Reference Range Interpretation Comments RDW (test code = RDW) 15.9 11.5-14.5 [facility]2016-12-25 11:03:00 Test Item Value Reference Range Interpretation Comments Phosphorus (test code = Phosphorus) 4.8 2.5-4.5 [facility]2016-12-25 11:03:00 Test Item Value Reference Range Interpretation Comments Magnesium Lvl (test code = Magnesium 2.0 1.8-2.4 Lvl) [facility]2016-12-25 11:03:00 Test Item Value Reference Range Interpretation Comments eGFR (test code = eGFR) 32 [facility]2016-12-25 11:03:00 Test Item Value Reference Range Interpretation Comments Chloride Lvl (test code = Chloride Lvl) 101 95-109 [facility]2016-12-25 11:03:00 Test Item Value Reference Range Interpretation Comments Potassium Lvl (test code = Potassium 4.4 3.5-5.1 Lvl) [facility]2016-12-25 11:03:00 Test Item Value Reference Range Interpretation Comments BUN (test code = BUN) 37 7-22 [facility]2016-12-25 11:03:00 Test Item Value Reference Range Interpretation Comments Glucose Lvl (test code = Glucose Lvl) 119 70-99 [facility]2016-12-25 11:03:00 Test Item Value Reference Range Interpretation Comments Creatinine Lvl (test code = Creatinine 2.00 0.50-1.40 Lvl) [facility]2016-12-25 11:03:00 Test Item Value Reference Range Interpretation Comments Sodium Lvl (test code = Sodium Lvl) 142 135-145 [facility]2016-12-25 11:03:00 Test Item Value Reference Range Interpretation Comments Calcium Lvl (test code = Calcium Lvl) 8.7 8.5-10.5 [facility]2016-12-25 11:03:00 Test Item Value Reference Range Interpretation Comments CO2 (test code = CO2) 32 24-32 [facility]2016-12-25 11:03:00 Test Item Value Reference Range Interpretation Comments AGAP (test code = AGAP) 13.4 10.0-20.0 [facility] HospitalDcbugmwSUICCIDXRA4453-62-66 11:03:00 Test Item Value Reference Range Interpretation Comments Eosinophils (test code = 10.3 See_Comment [A utomated message] The Eosinophils) system which ge nerated this result tra nsmitted reference range : <=4.0. The reference r leo was not used to int erpret this result as normal/abnormal . [facility] CenterDnknnsoWVRHJECRUU8314-12-96 11:03:00 Test Item Value Reference Range Interpretation Comments Basophils # (test code 0.1 See_Comment [Aut omated message] The = Basophils #) system which generated this result tra nsmitted reference range : <=0.2. The reference r leo was not used to int erpret this result as normal/abnormal . [facility] CenterZvnmdddSKISVPBBKT3360-33-98 11:03:00 Test Item Value Reference Range Interpretation Comments Eosinophils # (test code 0.5 See_Comment [A utomated message] The = Eosinophils #) system whic h generated this result tra nsmitted reference range : <=0.5. The reference r leo was not used to int erpret this result as normal/abnormal . [facility] CenterZmalcsjWCKYCTARTZ0738-25-29 11:03:00 Test Item Value Reference Range Interpretation Comments Monocytes # (test code 0.5 See_Comment [Aut omated message] The = Monocytes #) system which generated this result tra nsmitted reference range : <=0.8. The reference r leo was not used to int erpret this result as normal/abnormal . [facility] CenterWifqotnDDKEGHCPPG4395-49-89 11:03:00 Test Item Value Reference Range Interpretation Comments Segs-Bands # (test code = Segs-Bands #) 2.1 1.5-8.1 [facility] CenterGnxeygsNVMZFOGFZS4647-03-47 11:03:00 Test Item Value Reference Range Interpretation Comments Basophils (test code = 1.2 See_Comment [Aut omated message] The Basophils) system which ge nerated this result tra nsmitted reference range : <=1.0. The reference r leo was not used to int erpret this result as normal/abnormal . [facility] CenterPsykuwqWXWALRIVER6189-65-62 11:03:00 Test Item Value Reference Range Interpretation Comments Lymphocytes # (test code = Lymphocytes 1.9 1.0-5.5 #) [facility] CenterPvbdhzwNLXHORJQRV9437-00-59 11:03:00 Test Item Value Reference Range Interpretation Comments Segs (test code = Segs) 42.5 45.0-75.0 [facility] CenterLrothueUEJVTHLESR2412-14-51 11:03:00 Test Item Value Reference Range Interpretation Comments Lymphocytes (test code = Lymphocytes) 37.0 20.0-40.0 [facility] CenterVxmiyiqQXTBIXLDTG8407-85-17 11:03:00 Test Item Value Reference Range Interpretation Comments Monocytes (test code = Monocytes) 9.0 2.0-12.0 [facility] CenterHsziutbOQDAJCSNJL6934-91-61 11:03:00 Test Item Value Reference Range Interpretation Comments MPV (test code = MPV) 9.8 7.4-10.4 [facility] CenterSuryaquXEYWNDWORV0291-68-13 11:03:00 Test Item Value Reference Range Interpretation Comments WBC (test code = WBC) 5.0 3.7-10.4 [facility] CenterVsughcmPTQJEUCYIY0244-06-80 11:03:00 Test Item Value Reference Range Interpretation Comments RBC (test code = RBC) 3.57 4.20-5.40 [facility] CenterInjzlthIVAPENNOJG9264-14-96 11:03:00 Test Item Value Reference Range Interpretation Comments Hgb (test code = Hgb) 9.4 12.0-16.0 [facility] CenterNgqvgacWFKXUDIPRP4312-11-48 11:03:00 Test Item Value Reference Range Interpretation Comments Hct (test code = Hct) 28.5 36.0-48.0 [facility] CenterOpdpvjlASUYQJDWKS1961-01-97 11:03:00 Test Item Value Reference Range Interpretation Comments Platelet (test code = Platelet) 183 133-450 [facility] CenterTcunnzoUUUUBRVEYC3163-13-55 11:03:00 Test Item Value Reference Range Interpretation Comments MCV (test code = MCV) 79.9 80.0-98.0 [facility] CenterCqqyruwMFMPRJUDCD6915-48-23 11:03:00 Test Item Value Reference Range Interpretation Comments MCH (test code = MCH) 26.3 pg 27.0-31.0 [facility] CenterHprzpwkPHHFCXRZTO1932-26-13 11:03:00 Test Item Value Reference Range Interpretation Comments MCHC (test code = MCHC) 33.0 32.0-36.0 [facility] CenterCujmrxbYEBOLJBSZV5388-74-76 11:03:00 Test Item Value Reference Range Interpretation Comments RDW (test code = RDW) 15.9 11.5-14.5 [facility]2016-12-25 11:03:00 Test Item Value Reference Range Interpretation Comments Phosphorus (test code = Phosphorus) 4.8 2.5-4.5 [facility]2016-12-25 11:03:00 Test Item Value Reference Range Interpretation Comments Magnesium Lvl (test code = Magnesium 2.0 1.8-2.4 Lvl) [facility]2016-12-25 11:03:00 Test Item Value Reference Range Interpretation Comments eGFR (test code = eGFR) 32 [facility]2016-12-25 11:03:00 Test Item Value Reference Range Interpretation Comments Chloride Lvl (test code = Chloride Lvl) 101 95-109 [facility]2016-12-25 11:03:00 Test Item Value Reference Range Interpretation Comments Potassium Lvl (test code = Potassium 4.4 3.5-5.1 Lvl) [facility]2016-12-25 11:03:00 Test Item Value Reference Range Interpretation Comments BUN (test code = BUN) 37 7-22 [facility]2016-12-25 11:03:00 Test Item Value Reference Range Interpretation Comments Glucose Lvl (test code = Glucose Lvl) 119 70-99 [facility]2016-12-25 11:03:00 Test Item Value Reference Range Interpretation Comments Creatinine Lvl (test code = Creatinine 2.00 0.50-1.40 Lvl) [facility]2016-12-25 11:03:00 Test Item Value Reference Range Interpretation Comments Sodium Lvl (test code = Sodium Lvl) 142 135-145 [facility]2016-12-25 11:03:00 Test Item Value Reference Range Interpretation Comments Calcium Lvl (test code = Calcium Lvl) 8.7 8.5-10.5 [facility]2016-12-25 11:03:00 Test Item Value Reference Range Interpretation Comments CO2 (test code = CO2) 32 24-32 [facility]2016-12-25 11:03:00 Test Item Value Reference Range Interpretation Comments AGAP (test code = AGAP) 13.4 10.0-20.0 [facility]IwezzcaJBZGDFGICI2123-84-28 11:03:00 Test Item Value Reference Range Interpretation Comments Eosinophils (test code = 10.3 See_Comment [A utomated message] The Eosinophils) system which ge nerated this result tra nsmitted reference range : <=4.0. The reference r leo was not used to int erpret this result as normal/abnormal . [facility] CenterBkizxrtUKOZDMRLQM1449-28-83 11:03:00 Test Item Value Reference Range Interpretation Comments Basophils # (test code 0.1 See_Comment [Aut omated message] The = Basophils #) system which generated this result tra nsmitted reference range : <=0.2. The reference r leo was not used to int erpret this result as normal/abnormal . [facility] CenterCifgqauGHEQKKWMQX7386-45-45 11:03:00 Test Item Value Reference Range Interpretation Comments Eosinophils # (test code 0.5 See_Comment [A utomated message] The = Eosinophils #) system whic h generated this result tra nsmitted reference range : <=0.5. The reference r leo was not used to int erpret this result as normal/abnormal . [facility] CenterKoqtgwaIQBPLWIWZW1524-98-61 11:03:00 Test Item Value Reference Range Interpretation Comments Monocytes # (test code 0.5 See_Comment [Aut omated message] The = Monocytes #) system which generated this result tra nsmitted reference range : <=0.8. The reference r leo was not used to int erpret this result as normal/abnormal . [facility] CenterTxxpkdlFOXWXRMHVG7196-73-89 11:03:00 Test Item Value Reference Range Interpretation Comments Segs-Bands # (test code = Segs-Bands #) 2.1 1.5-8.1 [facility] CenterHymvuuvXEWWHETDWW8423-07-58 11:03:00 Test Item Value Reference Range Interpretation Comments Basophils (test code = 1.2 See_Comment [Aut omated message] The Basophils) system which ge nerated this result tra nsmitted reference range : <=1.0. The reference r leo was not used to int erpret this result as normal/abnormal . [facility] CenterOoftzvhGNXCDUAIPV2279-13-30 11:03:00 Test Item Value Reference Range Interpretation Comments Lymphocytes # (test code = Lymphocytes 1.9 1.0-5.5 #) [facility] CenterKutecqiTJQTHUUJPS8937-18-54 11:03:00 Test Item Value Reference Range Interpretation Comments Segs (test code = Segs) 42.5 45.0-75.0 [facility] CenterFlxbymtZNNUAUMWPJ5613-71-51 11:03:00 Test Item Value Reference Range Interpretation Comments Lymphocytes (test code = Lymphocytes) 37.0 20.0-40.0 [facility] CenterGzwmtsdLQTBEPGAVQ1054-54-02 11:03:00 Test Item Value Reference Range Interpretation Comments Monocytes (test code = Monocytes) 9.0 2.0-12.0 [facility] CenterWuynjjeJVIOIPKTGQ0074-18-04 11:03:00 Test Item Value Reference Range Interpretation Comments MPV (test code = MPV) 9.8 7.4-10.4 [facility] CenterRefaaloJLBDYDIDNE3929-73-34 11:03:00 Test Item Value Reference Range Interpretation Comments WBC (test code = WBC) 5.0 3.7-10.4 [facility] CenterIdxbpxqPYFCYRTXND8308-20-47 11:03:00 Test Item Value Reference Range Interpretation Comments RBC (test code = RBC) 3.57 4.20-5.40 [facility] CenterFzoghdeWKQCBISSFR7417-47-17 11:03:00 Test Item Value Reference Range Interpretation Comments Hgb (test code = Hgb) 9.4 12.0-16.0 [facility] CenterIitgeybJGPHVMXJZY2105-07-99 11:03:00 Test Item Value Reference Range Interpretation Comments Hct (test code = Hct) 28.5 36.0-48.0 [facility] CenterAidfqpaNBMEAKLWWP0265-92-45 11:03:00 Test Item Value Reference Range Interpretation Comments Platelet (test code = Platelet) 183 133-450 [facility] CenterTflygtgUYFIPIZMYK9335-37-74 11:03:00 Test Item Value Reference Range Interpretation Comments MCV (test code = MCV) 79.9 80.0-98.0 [facility]CxlzgzeHKAVIZUOOV2794-28-50 11:03:00 Test Item Value Reference Range Interpretation Comments MCH (test code = MCH) 26.3 pg 27.0-31.0 [facility] CenterFbbpnthESZOIMJCIZ2775-61-89 11:03:00 Test Item Value Reference Range Interpretation Comments MCHC (test code = MCHC) 33.0 32.0-36.0 [facility] CenterHdbapnoYGKDRBMCPC4610-66-26 11:03:00 Test Item Value Reference Range Interpretation [...] Protein (test code = U Protein) 133.1 [facility]2016-12-24 10:26:00 Test Item Value Reference Range Interpretation Comments U Prot/Creat (test code = U Prot/Creat) 6.9 [facility]2016-12-24 10:26:00 Test Item Value Reference Range Interpretation Comments U Creatinine (test code = U Creatinine) 19.30 [facility]2016-12-24 10:26:00 Test Item Value Reference Range Interpretation Comments U Protein (test code = U Protein) 133.1 [facility]2016-12-24 10:26:00 Test Item Value Reference Range Interpretation Comments U Prot/Creat (test code = U Prot/Creat) 6.9 [facility]2016-12-24 10:26:00 Test Item Value Reference Range Interpretation Comments U Creatinine (test code = U Creatinine) 19.30 [facility]2016-12-24 10:26:00 Test Item Value Reference Range Interpretation Comments U Protein (test code = U Protein) 133.1 [facility]2016-12-24 10:26:00 Test Item Value Reference Range Interpretation Comments U Prot/Creat (test code = U Prot/Creat) 6.9 [facility]2016-12-24 10:26:00 Test Item Value Reference Range Interpretation Comments U Creatinine (test code = U Creatinine) 19.30 [facility]2016-12-24 10:26:00 Test Item Value Reference Range Interpretation Comments U Protein (test code = U Protein) 133.1 [facility]2016-12-24 10:26:00 Test Item Value Reference Range Interpretation Comments U Prot/Creat (test code = U Prot/Creat) 6.9 [facility]2016-12-24 10:26:00 Test Item Value Reference Range Interpretation Comments U Creatinine (test code = U Creatinine) 19.30 [facility]28 10:26:00 Test Item Value Reference Range Interpretation Comments U Protein (test code = U Protein) 133.1 [facility] CenterSslyeglSHSMLLPEEI2088-31-24 09:20:00 Test Item Value Reference Range Interpretation Comments MPV (test code = MPV) 9.7 7.4-10.4 [facility]mxlzxjIGACCISRNH7411-98-80 09:20:00 Test Item Value Reference Range Interpretation Comments Platelet (test code = Platelet) 184 133-450 [facility]ZeakecrRPWJKTDOIG8732-06-79 09:20:00 Test Item Value Reference Range Interpretation Comments RDW (test code = RDW) 15.9 11.5-14.5 [facility] HospitalTtzycrcZDKCNALUVT2740-64-64 09:20:00 Test Item Value Reference Range Interpretation Comments MCV (test code = MCV) 79.3 80.0-98.0 [facility] HospitalUxmmxdoEBWXRSZLSG6446-27-71 09:20:00 Test Item Value Reference Range Interpretation Comments MCHC (test code = MCHC) 33.0 32.0-36.0 [facility] HospitalUciefgsKSEQWNHUEC3103-41-56 09:20:00 Test Item Value Reference Range Interpretation Comments MCH (test code = MCH) 26.2 pg 27.0-31.0 [facility] HospitalSvwnmuqWRKMGTBEIH8571-25-41 09:20:00 Test Item Value Reference Range Interpretation Comments Hct (test code = Hct) 29.4 36.0-48.0 [facility] HospitalAfclraiYOJUCFJLMA6855-37-76 09:20:00 Test Item Value Reference Range Interpretation Comments Hgb (test code = Hgb) 9.7 12.0-16.0 [facility] HospitalFyebcjfNOXPAGUQGV6569-98-08 09:20:00 Test Item Value Reference Range Interpretation Comments RBC (test code = RBC) 3.70 4.20-5.40 [facility] HospitalHuladduRDIDPEITXQ4837-17-93 09:20:00 Test Item Value Reference Range Interpretation Comments WBC (test code = WBC) 5.7 3.7-10.4 [facility] HospitalCdbrbruMXZSSHXNMC5848-29-98 09:20:00 Test Item Value Reference Range Interpretation Comments Basophils # (test code 0.1 See_Comment [Aut omated message] The = Basophils #) system which generated this result tra nsmitted reference range : <=0.2. The reference r leo was not used to int erpret this result as normal/abnormal . [facility] CenterQisyhlzFNPRCZMDEQ1493-84-95 09:20:00 Test Item Value Reference Range Interpretation Comments Lymphocytes # (test code = Lymphocytes 2.2 1.0-5.5 #) [facility] CenterLahdlkkWNCIZZSHSY2832-62-41 09:20:00 Test Item Value Reference Range Interpretation Comments Eosinophils # (test code 0.5 See_Comment [A utomated message] The = Eosinophils #) system whic h generated this result tra nsmitted reference range : <=0.5. The reference r leo was not used to int erpret this result as normal/abnormal . [facility] CenterLgtaaerLJJIDWBTUT9781-92-01 09:20:00 Test Item Value Reference Range Interpretation Comments Monocytes # (test code 0.5 See_Comment [Aut omated message] The = Monocytes #) system which generated this result tra nsmitted reference range : <=0.8. The reference r leo was not used to int erpret this result as normal/abnormal . [facility] CenterGqxtvwnWGZGNIPGFP2183-12-14 09:20:00 Test Item Value Reference Range Interpretation Comments Basophils (test code = 1.1 See_Comment [Aut omated message] The Basophils) system which ge nerated this result tra nsmitted reference range : <=1.0. The reference r leo was not used to int erpret this result as normal/abnormal . [facility] CenterFzuksvgWKXFRHYZLD2948-12-78 09:20:00 Test Item Value Reference Range Interpretation Comments Segs-Bands # (test code = Segs-Bands #) 2.3 1.5-8.1 [facility] CenterPftwwbjIAFZSRSCBO8700-33-40 09:20:00 Test Item Value Reference Range Interpretation Comments Eosinophils (test code = 9.5 See_Comment [A utomated message] The Eosinophils) system which ge nerated this result tra nsmitted reference range : <=4.0. The reference r leo was not used to int erpret this result as normal/abnormal . [facility] CenterWyxuitoUQWCFMFEKY8659-75-86 09:20:00 Test Item Value Reference Range Interpretation Comments Monocytes (test code = Monocytes) 9.0 2.0-12.0 [facility] CenterGkmaevcADVOJQRXMG2279-27-77 09:20:00 Test Item Value Reference Range Interpretation Comments Lymphocytes (test code = Lymphocytes) 38.9 20.0-40.0 [facility] CenterFcxrxfoIWLTJQVMRV2509-99-50 09:20:00 Test Item Value Reference Range Interpretation Comments Segs (test code = Segs) 41.5 45.0-75.0 [facility] CenterFehzmxfUHTQADAXRT1175-15-00 09:20:00 Test Item Value Reference Range Interpretation Comments MPV (test code = MPV) 9.7 7.4-10.4 [facility] CenterWnqqgjpIKRWJMXGLS1719-15-90 09:20:00 Test Item Value Reference Range Interpretation Comments Platelet (test code = Platelet) 184 133-450 [facility] CenterQimkjvnBDZCTSHJKR9699-56-28 09:20:00 Test Item Value Reference Range Interpretation Comments RDW (test code = RDW) 15.9 11.5-14.5 [facility] CenterVspiqfcUDTFZEDIYD0711-05-60 09:20:00 Test Item Value Reference Range Interpretation Comments MCV (test code = MCV) 79.3 80.0-98.0 [facility] CenterQyjcoenDADNRROWCU9634-73-54 09:20:00 Test Item Value Reference Range Interpretation Comments MCHC (test code = MCHC) 33.0 32.0-36.0 [facility] CenterJmunkuuZBAHGKMDWW2857-86-48 09:20:00 Test Item Value Reference Range Interpretation Comments MCH (test code = MCH) 26.2 pg 27.0-31.0 [facility] CenterYbfdtbaZXMVKICNJS6652-76-72 09:20:00 Test Item Value Reference Range Interpretation Comments Hct (test code = Hct) 29.4 36.0-48.0 [facility] CenterXlmdbnbQXUEYEFDYB0196-37-68 09:20:00 Test Item Value Reference Range Interpretation Comments Hgb (test code = Hgb) 9.7 12.0-16.0 [facility] CenterXhvapebWVNORTRRGS3077-71-35 09:20:00 Test Item Value Reference Range Interpretation Comments RBC (test code = RBC) 3.70 4.20-5.40 [place] 216276-12-24 09:20:00 Test Item Value Reference Range Interpretation Comments WBC (test code = WBC) 5.7 3.7-10.4 [facility] CenterHxsdhxrSZGXQMGVWY9802-92-45 09:20:00 Test Item Value Reference Range Interpretation Comments Basophils # (test code 0.1 See_Comment [Aut omated message] The = Basophils #) system which generated this result tra nsmitted reference range : <=0.2. The reference r leo was not used to int erpret this result as normal/abnormal . [facility] CenterAhcvywoFDVHMVJGSM9512-05-14 09:20:00 Test Item Value Reference Range Interpretation Comments Lymphocytes # (test code = Lymphocytes 2.2 1.0-5.5 #) [facility] CenterHzouuzoTUMHLPVKTP5262-31-62 09:20:00 Test Item Value Reference Range Interpretation Comments Eosinophils # (test code 0.5 See_Comment [A utomated message] The = Eosinophils #) system whic h generated this result tra nsmitted reference range : <=0.5. The reference r leo was not used to int erpret this result as normal/abnormal . [facility] CenterIjuipbqIDZXTUAVCB2896-97-71 09:20:00 Test Item Value Reference Range Interpretation Comments Monocytes # (test code 0.5 See_Comment [Aut omated message] The = Monocytes #) system which generated this result tra nsmitted reference range : <=0.8. The reference r leo was not used to int erpret this result as normal/abnormal . [facility] CenterSrixywrXFUXPQSIFH0889-18-37 09:20:00 Test Item Value Reference Range Interpretation Comments Basophils (test code = 1.1 See_Comment [Aut omated message] The Basophils) system which ge nerated this result tra nsmitted reference range : <=1.0. The reference r leo was not used to int erpret this result as normal/abnormal . [facility] CenterLthzoljTRHPVTPJJT5253-09-40 09:20:00 Test Item Value Reference Range Interpretation Comments Segs-Bands # (test code = Segs-Bands #) 2.3 1.5-8.1 [facility] CenterLnrewjtVMBSULGZIQ4681-83-76 09:20:00 Test Item Value Reference Range Interpretation Comments Eosinophils (test code = 9.5 See_Comment [A utomated message] The Eosinophils) system which ge nerated this result tra nsmitted reference range : <=4.0. The reference r leo was not used to int erpret this result as normal/abnormal . [facility] CenterYwlosreLIBZXRAMZA5324-42-73 09:20:00 Test Item Value Reference Range Interpretation Comments Monocytes (test code = Monocytes) 9.0 2.0-12.0 [facility] CenterXnvtxueFYGGUXDRRW2272-38-58 09:20:00 Test Item Value Reference Range Interpretation Comments Lymphocytes (test code = Lymphocytes) 38.9 20.0-40.0 [place] 216276-12-24 09:20:00 Test Item Value Reference Range Interpretation Comments Segs (test code = Segs) 41.5 45.0-75.0 [facility] CenterHdmjonwSCJKTDHSEW0879-40-75 09:20:00 Test Item Value Reference Range Interpretation Comments MPV (test code = MPV) 9.7 7.4-10.4 [facility] CenterBfgnvdvSAVEGBSSMV3289-80-15 09:20:00 Test Item Value Reference Range Interpretation Comments Platelet (test code = Platelet) 184 133-450 [facility] CenterFrbqmvuKOPOILGKOW1797-80-64 09:20:00 Test Item Value Reference Range Interpretation Comments RDW (test code = RDW) 15.9 11.5-14.5 [facility] CenterIaovgshCREJRDMDKO3154-94-48 09:20:00 Test Item Value Reference Range Interpretation Comments MCV (test code = MCV) 79.3 80.0-98.0 [facility] CenterGogilkhOAMFHRDBLB2732-41-10 09:20:00 Test Item Value Reference Range Interpretation Comments MCHC (test code = MCHC) 33.0 32.0-36.0 [facility] CenterUcrwlhbGBDXRAVRAH1503-78-31 09:20:00 Test Item Value Reference Range Interpretation Comments MCH (test code = MCH) 26.2 pg 27.0-31.0 [facility] CenterTmhpejrQJIBTLORJG4555-99-58 09:20:00 Test Item Value Reference Range Interpretation Comments Hct (test code = Hct) 29.4 36.0-48.0 [facility] CenterIwsairmDUNLSZZKDQ6330-28-53 09:20:00 Test Item Value Reference Range Interpretation Comments Hgb (test code = Hgb) 9.7 12.0-16.0 [facility] CenterClatbqmVCKFIQWVQG8097-20-70 09:20:00 Test Item Value Reference Range Interpretation Comments RBC (test code = RBC) 3.70 4.20-5.40 [facility] CenterCtxlwfeDJMGTDPXFB4595-51-19 09:20:00 Test Item Value Reference Range Interpretation Comments WBC (test code = WBC) 5.7 3.7-10.4 [facility] CenterQivqnrmZCDTQKXEAN4309-73-79 09:20:00 Test Item Value Reference Range Interpretation Comments Basophils # (test code 0.1 See_Comment [Aut omated message] The = Basophils #) system which generated this result tra nsmitted reference range : <=0.2. The reference r leo was not used to int erpret this result as normal/abnormal . [facility] CenterQvmldqlANGWUUTUFV7235-01-94 09:20:00 Test Item Value Reference Range Interpretation Comments Lymphocytes # (test code = Lymphocytes 2.2 1.0-5.5 #) [facility] CenterEhkdwtsIESPXZHISS3144-20-57 09:20:00 Test Item Value Reference Range Interpretation Comments Eosinophils # (test code 0.5 See_Comment [A utomated message] The = Eosinophils #) system whic h generated this result tra nsmitted reference range : <=0.5. The reference r leo was not used to int erpret this result as normal/abnormal . [facility] CenterTmelijmJQMMGZEBQT6264-22-70 09:20:00 Test Item Value Reference Range Interpretation Comments Monocytes # (test code 0.5 See_Comment [Aut omated message] The = Monocytes #) system which generated this result tra nsmitted reference range : <=0.8. The reference r leo was not used to int erpret this result as normal/abnormal . [facility] CenterCzteayhDKWFMDRACY6507-11-77 09:20:00 Test Item Value Reference Range Interpretation Comments Basophils (test code = 1.1 See_Comment [Aut omated message] The Basophils) system which ge nerated this result tra nsmitted reference range : <=1.0. The reference r leo was not used to int erpret this result as normal/abnormal . [facility] CenterAbfhvmzSGBUSVYIVJ7124-17-75 09:20:00 Test Item Value Reference Range Interpretation Comments Segs-Bands # (test code = Segs-Bands #) 2.3 1.5-8.1 [facility] CenterUyooxdsYCVLDTXZTV2499-14-06 09:20:00 Test Item Value Reference Range Interpretation Comments Eosinophils (test code = 9.5 See_Comment [A utomated message] The Eosinophils) system which ge nerated this result tra nsmitted reference range : <=4.0. The reference r leo was not used to int erpret this result as normal/abnormal . [facility] CenterGnexkixEYFYYEUUKN9127-08-72 09:20:00 Test Item Value Reference Range Interpretation Comments Monocytes (test code = Monocytes) 9.0 2.0-12.0 [facility] CenterWgetejeLHLPNMIPWT4410-48-78 09:20:00 Test Item Value Reference Range Interpretation Comments Lymphocytes (test code = Lymphocytes) 38.9 20.0-40.0 [place] 216276-12-24 09:20:00 Test Item Value Reference Range Interpretation Comments Segs (test code = Segs) 41.5 45.0-75.0 [place] 216276-12-24 09:20:00 Test Item Value Reference Range Interpretation Comments MPV (test code = MPV) 9.7 7.4-10.4 [facility] CenterKdshkvaYCCZCFAIQI8274-37-15 09:20:00 Test Item Value Reference Range Interpretation Comments Platelet (test code = Platelet) 184 133-450 [facility] CenterRwbkmaxDELKKXNSGB9827-90-77 09:20:00 Test Item Value Reference Range Interpretation Comments RDW (test code = RDW) 15.9 11.5-14.5 [facility] CenterBrmycrvOSFWHYKIWR3702-61-14 09:20:00 Test Item Value Reference Range Interpretation Comments MCV (test code = MCV) 79.3 80.0-98.0 [facility] CenterIhjbeozSYALBCKAUI7099-77-22 09:20:00 Test Item Value Reference Range Interpretation Comments MCHC (test code = MCHC) 33.0 32.0-36.0 [facility] CenterXcfrzjxTBESNJLYAV6685-37-09 09:20:00 Test Item Value Reference Range Interpretation Comments MCH (test code = MCH) 26.2 pg 27.0-31.0 [facility] CenterUdklnpdJHZKOEWUBZ3843-00-34 09:20:00 Test Item Value Reference Range Interpretation Comments Hct (test code = Hct) 29.4 36.0-48.0 [facility] CenterLupwngbFRKRYGXSYV6276-42-76 09:20:00 Test Item Value Reference Range Interpretation Comments Hgb (test code = Hgb) 9.7 12.0-16.0 [facility] CenterQzgvabpTZHLVWTFUJ7187-55-01 09:20:00 Test Item Value Reference Range Interpretation Comments RBC (test code = RBC) 3.70 4.20-5.40 [place] 216276-12-24 09:20:00 Test Item Value Reference Range Interpretation Comments WBC (test code = WBC) 5.7 3.7-10.4 [facility] CenterQvulytlNMAECVBFNC0587-71-09 09:20:00 Test Item Value Reference Range Interpretation Comments Basophils # (test code 0.1 See_Comment [Aut omated message] The = Basophils #) system which generated this result tra nsmitted reference range : <=0.2. The reference r leo was not used to int erpret this result as normal/abnormal . [facility] CenterYjkpxtbUKKYUQLGPW4645-39-14 09:20:00 Test Item Value Reference Range Interpretation Comments Lymphocytes # (test code = Lymphocytes 2.2 1.0-5.5 #) [facility] CenterDbpfonlNZFYPBQPCJ3773-32-82 09:20:00 Test Item Value Reference Range Interpretation Comments Eosinophils # (test code 0.5 See_Comment [A utomated message] The = Eosinophils #) system whic h generated this result tra nsmitted reference range : <=0.5. The reference r leo was not used to int erpret this result as normal/abnormal . [facility] CenterIvlkdsjTRYHNATWPI7570-40-10 09:20:00 Test Item Value Reference Range Interpretation Comments Monocytes # (test code 0.5 See_Comment [Aut omated message] The = Monocytes #) system which generated this result tra nsmitted reference range : <=0.8. The reference r leo was not used to int erpret this result as normal/abnormal . [facility] CenterAdfiggzLKCAFKZZBQ1228-62-84 09:20:00 Test Item Value Reference Range Interpretation Comments Basophils (test code = 1.1 See_Comment [Aut omated message] The Basophils) system which ge nerated this result tra nsmitted reference range : <=1.0. The reference r leo was not used to int erpret this result as normal/abnormal . [facility] CenterAaqnkjqSCTCZLKIAD7599-41-70 09:20:00 Test Item Value Reference Range Interpretation Comments Segs-Bands # (test code = Segs-Bands #) 2.3 1.5-8.1 [facility] CenterXreylkaEKRFHOXQHF7643-62-36 09:20:00 Test Item Value Reference Range Interpretation Comments Eosinophils (test code = 9.5 See_Comment [A utomated message] The Eosinophils) system which ge nerated this result tra nsmitted reference range : <=4.0. The reference r leo was not used to int erpret this result as normal/abnormal . [facility] CenterTzvhcmlPYIZLNCZRR2193-16-39 09:20:00 Test Item Value Reference Range Interpretation Comments Monocytes (test code = Monocytes) 9.0 2.0-12.0 [facility] CenterBiwktjmFDKYJBGDSW4064-14-66 09:20:00 Test Item Value Reference Range Interpretation Comments Lymphocytes (test code = Lymphocytes) 38.9 20.0-40.0 [facility] CenterPugfejzFZHCMBAWBX7608-90-25 09:20:00 Test Item Value Reference Range Interpretation Comments Segs (test code = Segs) 41.5 45.0-75.0 [facility] CenterWzvnlsxEEDIUEIQAY2531-50-65 09:20:00 Test Item Value Reference Range Interpretation Comments MPV (test code = MPV) 9.7 7.4-10.4 [facility] CenterEbrhbikJICKKVIMVX7669-99-58 09:20:00 Test Item Value Reference Range Interpretation Comments Platelet (test code = Platelet) 184 133-450 [facility] CenterElofswoQSBNRFZHJI5657-63-59 09:20:00 Test Item Value Reference Range Interpretation Comments RDW (test code = RDW) 15.9 11.5-14.5 [facility] CenterIpccyziIJCLLULECA6602-27-96 09:20:00 Test Item Value Reference Range Interpretation Comments MCV (test code = MCV) 79.3 80.0-98.0 [facility] CenterSkrrlvvIEUSVVVEHK3217-86-17 09:20:00 Test Item Value Reference Range Interpretation Comments MCHC (test code = MCHC) 33.0 32.0-36.0 [facility] CenterUljyagvHMVVKXGVZF7790-79-36 09:20:00 Test Item Value Reference Range Interpretation Comments MCH (test code = MCH) 26.2 pg 27.0-31.0 [facility] CenterXcsrtfpMXMYRWNLKH6218-91-72 09:20:00 Test Item Value Reference Range Interpretation Comments Hct (test code = Hct) 29.4 36.0-48.0 [facility] CenterRiuujseQRBFOWDFIK8861-04-52 09:20:00 Test Item Value Reference Range Interpretation Comments Hgb (test code = Hgb) 9.7 12.0-16.0 [facility] CenterQtjhhflVKEMUZNZLQ5914-36-32 09:20:00 Test Item Value Reference Range Interpretation Comments RBC (test code = RBC) 3.70 4.20-5.40 [facility] CenterJygezcnVOAVVSCMRG5129-47-91 09:20:00 Test Item Value Reference Range Interpretation Comments WBC (test code = WBC) 5.7 3.7-10.4 [facility] CenterLqlbghlCGIWXSGBJR5142-86-32 09:20:00 Test Item Value Reference Range Interpretation Comments Basophils # (test code 0.1 See_Comment [Aut omated message] The = Basophils #) system which generated this result tra nsmitted reference range : <=0.2. The reference r leo was not used to int erpret this result as normal/abnormal . [facility] CenterFpybbgjRWJGXJWSIB7022-40-28 09:20:00 Test Item Value Reference Range Interpretation Comments Lymphocytes # (test code = Lymphocytes 2.2 1.0-5.5 #) [facility] CenterXavkasyGRAMJNQZLH4716-83-63 09:20:00 Test Item Value Reference Range Interpretation Comments Eosinophils # (test code 0.5 See_Comment [A utomated message] The = Eosinophils #) system [facility] generated this result tra nsmitted reference range : <=0.5. The reference r leo was not used to int erpret this result as normal/abnormal . [facility] CenterOakcariGHIBGDJBUN1966-14-68 09:20:00 Test Item Value Reference Range Interpretation Comments Monocytes # (test code 0.5 See_Comment [Aut omated message] The = Monocytes #) system which generated this result tra nsmitted reference range : <=0.8. The reference r leo was not used to int erpret this result as normal/abnormal . [facility] CenterBcorartNENUAZHJEY7728-12-82 09:20:00 Test Item Value Reference Range Interpretation Comments Basophils (test code = 1.1 See_Comment [Aut omated message] The Basophils) system which ge nerated this result tra nsmitted reference range : <=1.0. The reference r leo was not used to int erpret this result as normal/abnormal . [facility] CenterScgunhtXZPQWIWXJD9883-70-32 09:20:00 Test Item Value Reference Range Interpretation Comments Segs-Bands # (test code = Segs-Bands #) 2.3 1.5-8.1 [facility] CenterAhgixbhEKNMWRHKKP8071-19-29 09:20:00 Test Item Value Reference Range Interpretation Comments Eosinophils (test code = 9.5 See_Comment [A utomated message] The Eosinophils) system which ge nerated this result tra nsmitted reference range : <=4.0. The reference r leo was not used to int erpret this result as normal/abnormal . [facility] CenterGybkivwLXPATRIAKK8683-29-04 09:20:00 Test Item Value Reference Range Interpretation Comments Monocytes (test code = Monocytes) 9.0 2.0-12.0 [facility] CenterBubnunvZJJVYVHOZC2771-59-97 09:20:00 Test Item Value Reference Range Interpretation Comments Lymphocytes (test code = Lymphocytes) 38.9 20.0-40.0 [facility] CenterLxwmxjwIMIVZMKQNY2758-75-25 09:20:00 Test Item Value Reference Range Interpretation Comments Segs (test code = Segs) 41.5 45.0-75.0 [facility]2016-12-24 06:34:00 Test Item Value Reference Range Interpretation Comments Magnesium Lvl (test code = Magnesium 1.7 1.8-2.4 Lvl) [facility]2016-12-24 06:34:00 Test Item Value Reference Range Interpretation Comments Phosphorus (test code = Phosphorus) 4.2 2.5-4.5 [facility]IuirrqxOZWVBMKGOIBI8672-32-04 06:34:00 Test Item Value Reference Range Interpretation Comments AGAP (test code = AGAP) 14.3 10.0-20.0 [facility] HospitalDkfvlwcGIGLATOKCAYH2980-22-12 06:34:00 Test Item Value Reference Range Interpretation Comments eGFR (test code = eGFR) 41 [facility] HospitalZczletzZZSQZAIIRXLQ3322-99-82 06:34:00 Test Item Value Reference Range Interpretation Comments Chloride Lvl (test code = Chloride Lvl) 103 95-109 [facility] HospitalGpwwdunLHOIWAMPJHKV8359-37-63 06:34:00 Test Item Value Reference Range Interpretation Comments Calcium Lvl (test code = Calcium Lvl) 8.5 8.5-10.5 [facility] HospitalKzfwaioWQSSATEMZKDF2594-04-40 06:34:00 Test Item Value Reference Range Interpretation Comments CO2 (test code = CO2) 32 24-32 [facility] HospitalEhvwqcbLSUMPLPMKNKI3200-72-75 06:34:00 Test Item Value Reference Range Interpretation Comments Glucose Lvl (test code = Glucose Lvl) 173 70-99 [facility] HospitalXsmodrdCSVRTHSYQUOP1847-18-55 06:34:00 Test Item Value Reference Range Interpretation Comments BUN (test code = BUN) 37 7-22 [facility]UpdjjwhXNBUERMHXLPO0342-83-47 06:34:00 Test Item Value Reference Range Interpretation Comments Creatinine Lvl (test code = Creatinine 1.63 0.50-1.40 Lvl) [facility] HospitalUjnrnkpHOJDKWCKUAEM9739-27-15 06:34:00 Test Item Value Reference Range Interpretation Comments Potassium Lvl (test code = Potassium 4.3 3.5-5.1 Lvl) [facility] HospitalQapvziwXXGGXXUTKCCP5827-74-57 06:34:00 Test Item Value Reference Range Interpretation Comments Sodium Lvl (test code = Sodium Lvl) 145 135-145 [facility]2016-12-24 06:34:00 Test Item Value Reference Range Interpretation Comments Magnesium Lvl (test code = Magnesium 1.7 1.8-2.4 Lvl) [facility]2016-12-24 06:34:00 Test Item Value Reference Range Interpretation Comments Phosphorus (test code = Phosphorus) 4.2 2.5-4.5 [facility] HospitalZwynoqgJIVWNVVJPLTC3642-31-74 06:34:00 Test Item Value Reference Range Interpretation Comments AGAP (test code = AGAP) 14.3 10.0-20.0 [facility] HospitalWwufrvgCBTJPFECBLMU7007-64-31 06:34:00 Test Item Value Reference Range Interpretation Comments eGFR (test code = eGFR) 41 [facility] HospitalBubgfyeJEZFHTKDBCKZ2724-96-98 06:34:00 Test Item Value Reference Range Interpretation Comments Chloride Lvl (test code = Chloride Lvl) 103 95-109 [facility] HospitalRwunapzYNCZJQNLPECY4570-43-00 06:34:00 Test Item Value Reference Range Interpretation Comments Calcium Lvl (test code = Calcium Lvl) 8.5 8.5-10.5 [facility] HospitalEviftmrGGTEWGQOHXJV7116-76-54 06:34:00 Test Item Value Reference Range Interpretation Comments CO2 (test code = CO2) 32 24-32 [facility] HospitalXwwljxfVDSWQMJTTKQZ3947-20-97 06:34:00 Test Item Value Reference Range Interpretation Comments Glucose Lvl (test code = Glucose Lvl) 173 70-99 [facility] HospitalCubewynIWCLJDBVBBZW3146-29-31 06:34:00 Test Item Value Reference Range Interpretation Comments BUN (test code = BUN) 37 7-22 [facility] HospitalIkelqfkOTXYMJJYSXAD7663-50-39 06:34:00 Test Item Value Reference Range Interpretation Comments Creatinine Lvl (test code = Creatinine 1.63 0.50-1.40 Lvl) [facility] HospitalRqhnerwRQFLREARZHGV5582-35-27 06:34:00 Test Item Value Reference Range Interpretation Comments Potassium Lvl (test code = Potassium 4.3 3.5-5.1 Lvl) [facility] HospitalWlqosmwJDEUANYYUGHF3971-41-66 06:34:00 Test Item Value Reference Range Interpretation Comments Sodium Lvl (test code = Sodium Lvl) 145 135-145 [facility]2016-12-24 06:34:00 Test Item Value Reference Range Interpretation Comments Magnesium Lvl (test code = Magnesium 1.7 1.8-2.4 Lvl) [facility]2016-12-24 06:34:00 Test Item Value Reference Range Interpretation Comments Phosphorus (test code = Phosphorus) 4.2 2.5-4.5 [facility] HospitalNwdcnzhCSUXQAURQBXU6714-74-36 06:34:00 Test Item Value Reference Range Interpretation Comments AGAP (test code = AGAP) 14.3 10.0-20.0 [facility] HospitalZsyxgoxXFJVFGLGRGPL0603-35-22 06:34:00 Test Item Value Reference Range Interpretation Comments eGFR (test code = eGFR) 41 [facility] HospitalLsporylUFAIIFESIHQV9083-29-38 06:34:00 Test Item Value Reference Range Interpretation Comments Chloride Lvl (test code = Chloride Lvl) 103 95-109 [facility] HospitalMmgviglGSICUILHTKYD4165-63-44 06:34:00 Test Item Value Reference Range Interpretation Comments Calcium Lvl (test code = Calcium Lvl) 8.5 8.5-10.5 [facility] HospitalCbklteoIQFRKVPSHDYX6047-38-95 06:34:00 Test Item Value Reference Range Interpretation Comments CO2 (test code = CO2) 32 24-32 [facility] HospitalGfggsqxZRAAOPMQCCCM5430-56-56 06:34:00 Test Item Value Reference Range Interpretation Comments Glucose Lvl (test code = Glucose Lvl) 173 70-99 [facility] HospitalJpiidzdOBOHXDVVZBYX5477-93-94 06:34:00 Test Item Value Reference Range Interpretation Comments BUN (test code = BUN) 37 7-22 [facility] HospitalCznwcwkEEUYZDRQCBIA3500-67-33 06:34:00 Test Item Value Reference Range Interpretation Comments Creatinine Lvl (test code = Creatinine 1.63 0.50-1.40 Lvl) [facility] HospitalGjonqnzUORIFRFRLCQP3685-60-12 06:34:00 Test Item Value Reference Range Interpretation Comments Potassium Lvl (test code = Potassium 4.3 3.5-5.1 Lvl) [facility] HospitalSqthisjZQROIXUJFWMX7040-31-77 06:34:00 Test Item Value Reference Range Interpretation Comments Sodium Lvl (test code = Sodium Lvl) 145 135-145 [facility]2016-12-24 06:34:00 Test Item Value Reference Range Interpretation Comments Magnesium Lvl (test code = Magnesium 1.7 1.8-2.4 Lvl) [facility]2016-12-24 06:34:00 Test Item Value Reference Range Interpretation Comments Phosphorus (test code = Phosphorus) 4.2 2.5-4.5 [facility] HospitalGmhpgdlQYQCYTERUHCT9727-03-32 06:34:00 Test Item Value Reference Range Interpretation Comments AGAP (test code = AGAP) 14.3 10.0-20.0 [facility] HospitalBzighcdWBSIYPIBNWCT8513-40-06 06:34:00 Test Item Value Reference Range Interpretation Comments eGFR (test code = eGFR) 41 [facility] HospitalVcxwfnkAPUTVKNGXJCJ2172-51-00 06:34:00 Test Item Value Reference Range Interpretation Comments Chloride Lvl (test code = Chloride Lvl) 103 95-109 [facility] HospitalVgawsmlNZADAHKCYMRQ0789-98-99 06:34:00 Test Item Value Reference Range Interpretation Comments Calcium Lvl (test code = Calcium Lvl) 8.5 8.5-10.5 [facility] HospitalEepvjgeSEYFKVLOMLWB0145-12-27 06:34:00 Test Item Value Reference Range Interpretation Comments CO2 (test code = CO2) 32 24-32 [facility] HospitalGthlocvPCNZHDRXOFGF8233-52-99 06:34:00 Test Item Value Reference Range Interpretation Comments Glucose Lvl (test code = Glucose Lvl) 173 70-99 [facility] HospitalHgnvqawMLPICTAIGRTR0619-50-22 06:34:00 Test Item Value Reference Range Interpretation Comments BUN (test code = BUN) 37 7-22 [facility] HospitalYjytryyGHAAWOHBZFTE3406-02-47 06:34:00 Test Item Value Reference Range Interpretation Comments Creatinine Lvl (test code = Creatinine 1.63 0.50-1.40 Lvl) [facility] HospitalIfgoigzLQXHMJINCVCH3278-53-99 06:34:00 Test Item Value Reference Range Interpretation Comments Potassium Lvl (test code = Potassium 4.3 3.5-5.1 Lvl) [facility] HospitalDqyyemjKQVSYTAUFKUO5624-55-33 06:34:00 Test Item Value Reference Range Interpretation Comments Sodium Lvl (test code = Sodium Lvl) 145 135-145 [facility]2016-12-24 06:34:00 Test Item Value Reference Range Interpretation Comments Magnesium Lvl (test code = Magnesium 1.7 1.8-2.4 Lvl) [facility]2016-12-24 06:34:00 Test Item Value Reference Range Interpretation Comments Phosphorus (test code = Phosphorus) 4.2 2.5-4.5 [facility] HospitalMvjemxmJEIMWMFZBEYI6386-13-13 06:34:00 Test Item Value Reference Range Interpretation Comments AGAP (test code = AGAP) 14.3 10.0-20.0 [facility] HospitalAdaejmnSDQURZIZFJXE7261-30-87 06:34:00 Test Item Value Reference Range Interpretation Comments eGFR (test code = eGFR) 41 [facility] HospitalUkqxmrjNLSENZASMIQS1567-54-91 06:34:00 Test Item Value Reference Range Interpretation Comments Chloride Lvl (test code = Chloride Lvl) 103 95-109 [facility] HospitalDtwaiuiPRVQVIFFJUPW6260-19-37 06:34:00 Test Item Value Reference Range Interpretation Comments Calcium Lvl (test code = Calcium Lvl) 8.5 8.5-10.5 [facility] HospitalQxdpqiqGZEFABQHTDGB2324-52-11 06:34:00 Test Item Value Reference Range Interpretation Comments CO2 (test code = CO2) 32 24-32 [facility] HospitalOzmbymjSZOEZTERKOZX3390-46-20 06:34:00 Test Item Value Reference Range Interpretation Comments Glucose Lvl (test code = Glucose Lvl) 173 70-99 [facility] HospitalAvpkaizOGSTEIHSQBVS8635-20-20 06:34:00 Test Item Value Reference Range Interpretation Comments BUN (test code = BUN) 37 7-22 [facility] HospitalVmeogczUZHXZMKISPZN9317-85-96 06:34:00 Test Item Value Reference Range Interpretation Comments Creatinine Lvl (test code = Creatinine 1.63 0.50-1.40 Lvl) [facility] HospitalEkwzecuFPODSIGGDWAD0161-67-08 06:34:00 Test Item Value Reference Range Interpretation Comments Potassium Lvl (test code = Potassium 4.3 3.5-5.1 Lvl) [facility] HospitalCrstfqvVLJGGXHSCSZD9473-99-26 06:34:00 Test Item Value Reference Range Interpretation Comments Sodium Lvl (test code = Sodium Lvl) 145 135-145 [facility]2016-12-22 16:21:00 Test Item Value Reference Range Interpretation Comments Ammonia (test code = Ammonia) 48.0 [facility]2016-12-22 16:21:00 Test Item Value Reference Range Interpretation Comments Ammonia (test code = Ammonia) 48.0 [facility]2016-12-22 16:21:00 Test Item Value Reference Range Interpretation Comments Ammonia (test code = Ammonia) 48.0 [facility]2016-12-22 16:21:00 Test Item Value Reference Range Interpretation Comments Ammonia (test code = Ammonia) 48.0 [facility]2016-12-22 16:21:00 Test Item Value Reference Range Interpretation Comments Ammonia (test code = Ammonia) 48.0 [facility] HospitalDsgjfqhFYWSAFRXAX5418-84-16 14:56:00 Test Item Value Reference Range Interpretation Comments IVETTE Interp (test code Pattern appears = IVETTE Interp) Nucleolar. [facility] HospitalHcpjcrlOCKLFVJHYZ9022-21-89 14:56:00 Test Item Value Reference Range Interpretation Comments IVETTE Titer (test code = 1:40 *ABN*(06/11/16 IVETTE Titer) 8:56 AM) [facility] HospitalOaehhusLWMHOAZUAE9304-33-80 14:56:00 Test Item Value Reference Range Interpretation Comments Hep Bs Ag (test code Negative *NA*(06/11/16 = Hep Bs Ag) 8:56 AM) [facility] HospitalTlxgdlaWSKTJOVACQ0462-80-33 14:56:00 Test Item Value Reference Range Interpretation Comments Hep C Ab (test code = Negative *NA*(06/11/16 Hep C Ab) 8:56 AM) [facility] HospitalKtfjwumRGJRJHWRYF8364-61-67 14:56:00 Test Item Value Reference Range Interpretation Comments Hep B Core IgM (test Negative *NA*(06/11/16 code = Hep B Core 8:56 AM) IgM) [facility] HospitalAzosubhMMHFAIOKOR4125-64-56 14:56:00 Test Item Value Reference Range Interpretation Comments Hep A IgM (test code Negative *NA*(06/11/16 = Hep A IgM) 8:56 AM) [facility] HospitalQnjynktKDYRWBLYAP3222-71-21 14:56:00 Test Item Value Reference Range Interpretation Comments HIV Ag/Ab 4th Gen Negative *NA*(06/11/16 (test code = HIV 8:56 AM) Ag/Ab 4th Gen) [facility] HospitalLcjpwbcYJQMBIURZN7842-02-47 14:56:00 Test Item Value Reference Range Interpretation Comments IVETTE (test code = IVETTE) Positive *ABN*(06/11/16 8:56 AM) [facility] HospitalBjgsobeCDHAIVRHRC6089-76-37 14:56:00 Test Item Value Reference Range Interpretation Comments IVETTE Interp (test code Pattern appears = IVETTE Interp) Nucleolar. [facility] HospitalMcrsvhhMTFGURIGMO6642-00-73 14:56:00 Test Item Value Reference Range Interpretation Comments IVETTE Titer (test code = 1:40 *ABN*(06/11/16 IVETTE Titer) 8:56 AM) [facility] HospitalAwtpnwsTFZGCQTBKH2698-51-54 14:56:00 Test Item Value Reference Range Interpretation Comments Hep Bs Ag (test code Negative *NA*(06/11/16 = Hep Bs Ag) 8:56 AM) [facility] HospitalEdpxtesFZDJUAWMMA5341-72-87 14:56:00 Test Item Value Reference Range Interpretation Comments Hep C Ab (test code = Negative *NA*(06/11/16 Hep C Ab) 8:56 AM) [facility] HospitalCzuigreKBPJTAPZFD6078-53-49 14:56:00 Test Item Value Reference Range Interpretation Comments Hep B Core IgM (test Negative *NA*(06/11/16 code = Hep B Core 8:56 AM) IgM) [facility] HospitalUjhxanpTLINDHWOZN0472-59-85 14:56:00 Test Item Value Reference Range Interpretation Comments Hep A IgM (test code Negative *NA*(06/11/16 = Hep A IgM) 8:56 AM) [facility] HospitalOnzcudrMKCJRTGLJK3999-24-82 14:56:00 Test Item Value Reference Range Interpretation Comments HIV Ag/Ab 4th Gen Negative *NA*(06/11/16 (test code = HIV 8:56 AM) Ag/Ab 4th Gen) [facility] HospitalKbbrjoiGHINAFUUNH1664-96-42 14:56:00 Test Item Value Reference Range Interpretation Comments IVETTE (test code = IVETTE) Positive *ABN*(06/11/16 8:56 AM) [facility] HospitalYghldpfFHGWVKOFVC6767-35-83 14:56:00 Test Item Value Reference Range Interpretation Comments IVETTE Interp (test code Pattern appears = IVETTE Interp) Nucleolar. [facility] HospitalJpswdybQEWATTDZBZ8729-48-09 14:56:00 Test Item Value Reference Range Interpretation Comments IVETTE Titer (test code = 1:40 *ABN*(06/11/16 IVETTE Titer) 8:56 AM) [facility] HospitalShearxnQSSZLFLWQM8169-46-27 14:56:00 Test Item Value Reference Range Interpretation Comments Hep Bs Ag (test code Negative *NA*(06/11/16 = Hep Bs Ag) 8:56 AM) [facility] HospitalBphdaotWGFWEUSGHY1189-80-97 14:56:00 Test Item Value Reference Range Interpretation Comments Hep C Ab (test code = Negative *NA*(06/11/16 Hep C Ab) 8:56 AM) [facility] HospitalCjdjxjkOCHAWIGXTO4402-40-72 14:56:00 Test Item Value Reference Range Interpretation Comments Hep B Core IgM (test Negative *NA*(06/11/16 code = Hep B Core 8:56 AM) IgM) [facility] HospitalRfxjhiuWGKVOVDEYP9048-07-75 14:56:00 Test Item Value Reference Range Interpretation Comments Hep A IgM (test code Negative *NA*(06/11/16 = Hep A IgM) 8:56 AM) [facility] HospitalQiparjiVMDXVNMDPR9017-75-72 14:56:00 Test Item Value Reference Range Interpretation Comments HIV Ag/Ab 4th Gen Negative *NA*(06/11/16 (test code = HIV 8:56 AM) Ag/Ab 4th Gen) [facility] HospitalLjfkcqbVMHBACPTGO3409-75-94 14:56:00 Test Item Value Reference Range Interpretation Comments IVETTE (test code = IVETTE) Positive *ABN*(06/11/16 8:56 AM) [facility] HospitalTmmzhzqEDYZAFMTVG3115-78-89 14:56:00 Test Item Value Reference Range Interpretation Comments IVETTE Interp (test code Pattern appears = IVETTE Interp) Nucleolar. [facility] HospitalWnlaqidYMEPMMHXBC9744-00-66 14:56:00 Test Item Value Reference Range Interpretation Comments IVETTE Titer (test code = 1:40 *ABN*(06/11/16 IVETTE Titer) 8:56 AM) [facility] HospitalRujaxciUXKVYSNRTJ7713-06-08 14:56:00 Test Item Value Reference Range Interpretation Comments Hep Bs Ag (test code Negative *NA*(06/11/16 = Hep Bs Ag) 8:56 AM) [facility] HospitalKrsqubnBPHJEPZJSC6454-00-59 14:56:00 Test Item Value Reference Range Interpretation Comments Hep C Ab (test code = Negative *NA*(06/11/16 Hep C Ab) 8:56 AM) [facility] HospitalWenhrufGWERCSKKUQ1037-75-10 14:56:00 Test Item Value Reference Range Interpretation Comments Hep B Core IgM (test Negative *NA*(06/11/16 code = Hep B Core 8:56 AM) IgM) [facility] HospitalVdrkxwcDXGLIQPSRB7370-75-18 14:56:00 Test Item Value Reference Range Interpretation Comments Hep A IgM (test code Negative *NA*(06/11/16 = Hep A IgM) 8:56 AM) [facility] HospitalFrymgxlWCSTNRVAFQ4921-55-18 14:56:00 Test Item Value Reference Range Interpretation Comments HIV Ag/Ab 4th Gen Negative *NA*(06/11/16 (test code = HIV 8:56 AM) Ag/Ab 4th Gen) [facility] HospitalNkxcrtvNSAJYDLUXA0503-20-87 14:56:00 Test Item Value Reference Range Interpretation Comments IVETTE (test code = IVETTE) Positive *ABN*(06/11/16 8:56 AM) [facility] HospitalRennblrUIEAYTWYVJ7299-13-15 14:56:00 Test Item Value Reference Range Interpretation Comments IVETTE Interp (test code Pattern appears = IVETTE Interp) Nucleolar. [facility] HospitalAffnvrpOCFUJZYWPF6256-78-68 14:56:00 Test Item Value Reference Range Interpretation Comments IVETTE Titer (test code = 1:40 *ABN*(06/11/16 IVETTE Titer) 8:56 AM) [facility] HospitalZodmadwIQYROYAXFR8169-89-73 14:56:00 Test Item Value Reference Range Interpretation Comments Hep Bs Ag (test code Negative *NA*(06/11/16 = Hep Bs Ag) 8:56 AM) [facility] HospitalDuqibxkDSJATSPIUY6123-55-14 14:56:00 Test Item Value Reference Range Interpretation Comments Hep C Ab (test code = Negative *NA*(06/11/16 Hep C Ab) 8:56 AM) [facility] HospitalVklxuvfGMLCHKQTQN9174-92-84 14:56:00 Test Item Value Reference Range Interpretation Comments Hep B Core IgM (test Negative *NA*(06/11/16 code = Hep B Core 8:56 AM) IgM) [facility]UkiylwoDKWHTLYYXK1525-16-59 14:56:00 Test Item Value Reference Range Interpretation Comments Hep A IgM (test code Negative *NA*(06/11/16 = Hep A IgM) 8:56 AM) [facility] CenterCddbhujOVZXKMQRYL6708-38-00 14:56:00 Test Item Value Reference Range Interpretation Comments HIV Ag/Ab 4th Gen Negative *NA*(06/11/16 (test code = HIV 8:56 AM) Ag/Ab 4th Gen) [facility] CenterRigcksmLPNCEFTKAB9879-61-66 14:56:00 Test Item Value Reference Range Interpretation Comments IVETTE (test code = IVETTE) Positive *ABN*(06/11/16 8:56 AM) [facility]2016-12-22 10:42:00 Test Item Value Reference Range Interpretation Comments Bili Total (test code = Bili Total) 0.1 0.2-1.3 [facility]2016-12-22 10:42:00 Test Item Value Reference Range Interpretation Comments Total Protein (test code = Total 5.2 6.4-8.4 Protein) [facility]2016-12-22 10:42:00 Test Item Value Reference Range Interpretation Comments Albumin Lvl (test code = Albumin Lvl) 1.6 3.5-5.0 [facility]2016-12-22 10:42:00 Test Item Value Reference Range Interpretation Comments B/C Ratio (test code = B/C Ratio) 20 6-25 [facility]2016-12-22 10:42:00 Test Item Value Reference Range Interpretation Comments Globulin (test code = Globulin) 3.6 2.7-4.2 [facility]2016-12-22 10:42:00 Test Item Value Reference Range Interpretation Comments A/G Ratio (test code = A/G Ratio) 0.4 0.7-1.6 [facility]2016-12-22 10:42:00 Test Item Value Reference Range Interpretation Comments Alk Phos (test code = Alk Phos) 74 39-136 [facility]2016-12-22 10:42:00 Test Item Value Reference Range Interpretation Comments ALT (test code = ALT) 14 See_Comment [Auto mated message] The system which ge nerated this result transmit rohit reference range : <=65. The reference range was not used to interpr et this result as reji l/abnormal. [facility] CenterSnappyTV SGEYI0981-62-97 10:42:00 Test Item Value Reference Range Interpretation Comments AST (test code = AST) 13 See_Comment [Auto mated message] The system which ge nerated this result transmit rohit reference range : <=37. The reference range was not used to interpr et this result as reji l/abnormal. [facility]IuqytwxFBYZLDFWXO6875-07-50 10:42:00 Test Item Value Reference Range Interpretation Comments INR (test code = INR) 1.06 0.85-1.17 [facility] CenterJemdlefLDSBWSQEFH6545-15-93 10:42:00 Test Item Value Reference Range Interpretation Comments PT (test code = PT) 14.0 s 12.0-14.7 [facility]OvvbpyqGQFRMTGAJY8657-23-86 10:42:00 Test Item Value Reference Range Interpretation Comments PTT (test code = PTT) 36.4 s 22.9-35.8 [facility] DDSJKCRXY7989-65-23 10:42:00 Test Item Value Reference Range Interpretation Comments Hgb A1C (test code = Hgb A1C) 10.5 [facility]2016-12-22 10:42:00 Test Item Value Reference Range Interpretation Comments Bili Total (test code = Bili Total) 0.1 0.2-1.3 [facility]2016-12-22 10:42:00 Test Item Value Reference Range Interpretation Comments Total Protein (test code = Total 5.2 6.4-8.4 Protein) [facility]2016-12-22 10:42:00 Test Item Value Reference Range Interpretation Comments Albumin Lvl (test code = Albumin Lvl) 1.6 3.5-5.0 [facility]2016-12-22 10:42:00 Test Item Value Reference Range Interpretation Comments B/C Ratio (test code = B/C Ratio) 20 6-25 [facility]2016-12-22 10:42:00 Test Item Value Reference Range Interpretation Comments Globulin (test code = Globulin) 3.6 2.7-4.2 [facility]2016-12-22 10:42:00 Test Item Value Reference Range Interpretation Comments A/G Ratio (test code = A/G Ratio) 0.4 0.7-1.6 [facility]2016-12-22 10:42:00 Test Item Value Reference Range Interpretation Comments Alk Phos (test code = Alk Phos) 74 39-136 [facility]2016-12-22 10:42:00 Test Item Value Reference Range Interpretation Comments ALT (test code = ALT) 14 See_Comment [Auto mated message] The system which ge nerated this result transmit rohit reference range : <=65. The reference range was not used to interpr et this result as reji l/abnormal. [facility]2016-12-22 10:42:00 Test Item Value Reference Range Interpretation Comments AST (test code = AST) 13 See_Comment [Auto mated message] The system which ge nerated this result transmit rohit reference range : <=37. The reference range was not used to interpr et this result as reji l/abnormal. [facility] CenterAyuihekVEKJXVPDWP2186-78-30 10:42:00 Test Item Value Reference Range Interpretation Comments INR (test code = INR) 1.06 0.85-1.17 [facility] CenterMnbjhqjYLWFFICJNH7299-34-00 10:42:00 Test Item Value Reference Range Interpretation Comments PT (test code = PT) 14.0 s 12.0-14.7 [facility] HospitalKerxfflAENBJRFVIN0477-43-88 10:42:00 Test Item Value Reference Range Interpretation Comments PTT (test code = PTT) 36.4 s 22.9-35.8 [facility] GQOXNSYDX2344-21-26 10:42:00 Test Item Value Reference Range Interpretation Comments Hgb A1C (test code = Hgb A1C) 10.5 [facility]2016-12-22 10:42:00 Test Item Value Reference Range Interpretation Comments Bili Total (test code = Bili Total) 0.1 0.2-1.3 [facility]2016-12-22 10:42:00 Test Item Value Reference Range Interpretation Comments Total Protein (test code = Total 5.2 6.4-8.4 Protein) [facility]2016-12-22 10:42:00 Test Item Value Reference Range Interpretation Comments Albumin Lvl (test code = Albumin Lvl) 1.6 3.5-5.0 [facility]2016-12-22 10:42:00 Test Item Value Reference Range Interpretation Comments B/C Ratio (test code = B/C Ratio) 20 6-25 [facility]2016-12-22 10:42:00 Test Item Value Reference Range Interpretation Comments Globulin (test code = Globulin) 3.6 2.7-4.2 [facility]2016-12-22 10:42:00 Test Item Value Reference Range Interpretation Comments A/G Ratio (test code = A/G Ratio) 0.4 0.7-1.6 [facility]2016-12-22 10:42:00 Test Item Value Reference Range Interpretation Comments Alk Phos (test code = Alk Phos) 74 39-136 [facility]2016-12-22 10:42:00 Test Item Value Reference Range Interpretation Comments ALT (test code = ALT) 14 See_Comment [Auto mated message] The system which ge nerated this result transmit rohit reference range : <=65. The reference range was not used to interpr et this result as reji l/abnormal. [facility]2016-12-22 10:42:00 Test Item Value Reference Range Interpretation Comments AST (test code = AST) 13 See_Comment [Auto mated message] The system which ge nerated this result transmit rohit reference range : <=37. The reference range was not used to interpr et this result as reji l/abnormal. [facility] [id number] 10:42:00 Test Item Value Reference Range Interpretation Comments INR (test code = INR) 1.06 0.85-1.17 [facility]UmmdsljRCFKPFQXHA4424-98-58 10:42:00 Test Item Value Reference Range Interpretation Comments PT (test code = PT) 14.0 s 12.0-14.7 [facility]44[facility]-71 10:42:00 Test Item Value Reference Range Interpretation Comments PTT (test code = PTT) 36.4 s 22.9-35.8 [facility] [id number] 10:42:00 Test Item Value Reference Range Interpretation Comments Hgb A1C (test code = Hgb A1C) 10.5 [facility]2016-12-22 10:42:00 Test Item Value Reference Range Interpretation Comments Bili Total (test code = Bili Total) 0.1 0.2-1.3 [facility]2016-12-22 10:42:00 Test Item Value Reference Range Interpretation Comments Total Protein (test code = Total 5.2 6.4-8.4 Protein) [place] [id number] 10:42:00 Test Item Value Reference Range Interpretation Comments Albumin Lvl (test code = Albumin Lvl) 1.6 3.5-5.0 [facility]2016-12-22 10:42:00 Test Item Value Reference Range Interpretation Comments B/C Ratio (test code = B/C Ratio) 20 6-25 [place] [id number] 10:42:00 Test Item Value Reference Range Interpretation Comments Globulin (test code = Globulin) 3.6 2.7-4.2 [facility]2016-12-22 10:42:00 Test Item Value Reference Range Interpretation Comments A/G Ratio (test code = A/G Ratio) 0.4 0.7-1.6 [facility]2016-12-22 10:42:00 Test Item Value Reference Range Interpretation Comments Alk Phos (test code = Alk Phos) 74 39-136 [facility]2016-12-22 10:42:00 Test Item Value Reference Range Interpretation Comments ALT (test code = ALT) 14 See_Comment [Auto mated message] The system which ge nerated this result transmit rohit reference range : <=65. The reference range was not used to interpr et this result as reji l/abnormal. [facility]2016-12-22 10:42:00 Test Item Value Reference Range Interpretation Comments AST (test code = AST) 13 See_Comment [Auto mated message] The system which ge nerated this result transmit rohit reference range : <=37. The reference range was not used to interpr et this result as reji l/abnormal. [facility]xc[facility]ioLIFDEZKFMR1551-33-29 10:42:00 Test Item Value Reference Range Interpretation Comments INR (test code = INR) 1.06 0.85-1.17 [facility] CenterCdclhgsFEBZELIHID3121-69-37 10:42:00 Test Item Value Reference Range Interpretation Comments PT (test code = PT) 14.0 s 12.0-14.7 [facility] CenterZoeiaunPOLRPHNURT2247-03-46 10:42:00 Test Item Value Reference Range Interpretation Comments PTT (test code = PTT) 36.4 s 22.9-35.8 [facility] [id number] 10:42:00 Test Item Value Reference Range Interpretation Comments Hgb A1C (test code = Hgb A1C) 10.5 [facility]2016-12-22 10:42:00 Test Item Value Reference Range Interpretation Comments Bili Total (test code = Bili Total) 0.1 0.2-1.3 [facility]2016-12-22 10:42:00 Test Item Value Reference Range Interpretation Comments Total Protein (test code = Total 5.2 6.4-8.4 Protein) [facility]2016-12-22 10:42:00 Test Item Value Reference Range Interpretation Comments Albumin Lvl (test code = Albumin Lvl) 1.6 3.5-5.0 [facility]2016-12-22 10:42:00 Test Item Value Reference Range Interpretation Comments B/C Ratio (test code = B/C Ratio) 20 6-25 [facility]2016-12-22 10:42:00 Test Item Value Reference Range Interpretation Comments Globulin (test code = Globulin) 3.6 2.7-4.2 [facility]2016-12-22 10:42:00 Test Item Value Reference Range Interpretation Comments A/G Ratio (test code = A/G Ratio) 0.4 0.7-1.6 [facility]2016-12-22 10:42:00 Test Item Value Reference Range Interpretation Comments Alk Phos (test code = Alk Phos) 74 39-136 [facility]2016-12-22 10:42:00 Test Item Value Reference Range Interpretation Comments ALT (test code = ALT) 14 See_Comment [Auto mated message] The system which ge nerated this result transmit rohit reference range : <=65. The reference range was not used to interpr et this result as reji l/abnormal. [facility]2016-12-22 10:42:00 Test Item Value Reference Range Interpretation Comments AST (test code = AST) 13 See_Comment [Auto mated message] The system which ge nerated this result transmit rohit reference range : <=37. The reference range was not used to interpr et this result as reji l/abnormal. [facility] CenterNodqwumGTWABMBMOS0915-24-17 10:42:00 Test Item Value Reference Range Interpretation Comments INR (test code = INR) 1.06 0.85-1.17 [facility] C[id number] 10:42:00 Test Item Value Reference Range Interpretation Comments PT (test code = PT) 14.0 s 12.0-14.7 [facility] CenterGbzrpeqMJXIVWQOKR3332-91-51 10:42:00 Test Item Value Reference Range Interpretation Comments PTT (test code = PTT) 36.4 s 22.9-35.8 [facility] [id number] 10:42:00 Test Item Value Reference Range Interpretation Comments Hgb A1C (test code = Hgb A1C) 10.5 [facility] CenterCARAC [id number] 02:08:00 Test Item Value Reference Range Interpretation Comments CK MB Index (test 1.8 See_Comment [Automate d message] The code = CK MB Index) system w [facility] generated this result transmit rohit reference range : <=2.5. The reference range was not used to interpr et this result as reji l/abnormal. [facility] CenterCARDIAC [id number] 02:08:00 Test Item Value Reference Range Interpretation Comments CK MB (test code = CK MB) 2.9 0.5-3.6 [facility] CenterCARAC [id number] 02:08:00 Test Item Value Reference Range Interpretation Comments Troponin-T (test code 0.061 See_Comment [Auto mated message] The = Troponin-T) system which g enerated this result transmit rohit reference range : <=0.100. The reference r leo was not used to interpr et this result as reji l/abnormal. [facility] CenterCARD[facility]AC [id number] 02:08:00 Test Item Value Reference Range Interpretation Comments Total CK (test code = Total CK) 159 12-191 [facility] CenterCARAC [id number] 02:08:00 Test Item Value Reference Range Interpretation Comments Troponin-I (test code no gt See_Comment [Auto mated message] The = Troponin-I) system which g enerated this result transmit rohit reference range : <=0.40. The reference r leo was not used to interpr et this result as reji l/abnormal. [facility]2016-12-22 02:08:00 Test Item Value Reference Range Interpretation Comments Bili Total (test code = Bili Total) 0.2 0.2-1.3 [place] [id number] 02:08:00 Test Item Value Reference Range Interpretation Comments Bili Direct (test code 0.1 See_Comment [Aut omated message] The = Bili Direct) system which generated this result tra nsmitted reference range : <=0.3. The reference r leo was not used to int erpret this result as reji l/abnormal. [place] 743266-12-22 02:08:00 Test Item Value Reference Range Interpretation Comments Bili Indirect (test 0.1 See_Comment [Automa rohit message] The code = Bili Indirect) system which generated this result tra nsmitted reference range : <=1.0. The reference r leo was not used to int erpret this result as normal/abnormal . [facility]2016-12-22 02:08:00 Test Item Value Reference Range Interpretation Comments Total Protein (test code = Total 5.7 6.4-8.4 Protein) [facility]2016-12-22 02:08:00 Test Item Value Reference Range Interpretation Comments A/G Ratio (test code = A/G Ratio) 0.5 0.7-1.6 [place] 743266-12-22 02:08:00 Test Item Value Reference Range Interpretation Comments Albumin Lvl (test code = Albumin Lvl) 1.8 3.5-5.0 [place] 743266-12-22 02:08:00 Test Item Value Reference Range Interpretation Comments Globulin (test code = Globulin) 3.9 2.7-4.2 [place] 743266-12-22 02:08:00 Test Item Value Reference Range Interpretation Comments Alk Phos (test code = Alk Phos) 99 39-136 [facility]2016-12-22 02:08:00 Test Item Value Reference Range Interpretation Comments AST (test code = AST) 21 See_Comment [Auto mated message] The system which ge nerated this result transmit rohit reference range : <=37. The reference range was not used to interpr et this result as reji l/abnormal. [facility] [id number] 02:08:00 Test Item Value Reference Range Interpretation Comments ALT (test code = ALT) 17 See_Comment [Auto mated message] The system which ge nerated this result transmit rohit reference range : <=65. The reference range was not used to interpr et this result as reji l/abnormal. [facility] [id number] 02:08:00 Test Item Value Reference Range Interpretation Comments UDS Note (test code = See Note *NA*(06/10/16 UDS Note) 8:08 PM) [facility] [id number] 02:08:00 Test Item Value Reference Range Interpretation Comments U Propoxyph Scr (test Negative *NA*(06/10/16 code = U Propoxyph Scr) 8:08 PM) [facility] [id number] 02:08:00 Test Item Value Reference Range Interpretation Comments U Opiate Scr (test Negative *NA*(06/10/16 code = U Opiate Scr) 8:08 PM) [facility] [id number] 02:08:00 Test Item Value Reference Range Interpretation Comments U Methadone Scr (test Negative *NA*(06/10/16 code = U Methadone Scr) 8:08 PM) [facility] [id number] 02:08:00 Test Item Value Reference Range Interpretation Comments U Phencyc Scr (test Negative *NA*(06/10/16 code = U Phencyc Scr) 8:08 PM) [facility] [id number] 02:08:00 Test Item Value Reference Range Interpretation Comments U Cannab Scr (test Negative *NA*(06/10/16 code = U Cannab Scr) 8:08 PM) [facility] [id number] 02:08:00 Test Item Value Reference Range Interpretation Comments U Amph Scr (test code Negative *NA*(06/10/16 = U Amph Scr) 8:08 PM) [facility] [id number] 02:08:00 Test Item Value Reference Range Interpretation Comments U Kelly Scr (test code Negative *NA*(06/10/16 = U Kelly Scr) 8:08 PM) [facility] [id number] 02:08:00 Test Item Value Reference Range Interpretation Comments U Benzodia Scr (test Negative *NA*(06/10/16 code = U Benzodia Scr) 8:08 PM) [facility] [id number] 02:08:00 Test Item Value Reference Range Interpretation Comments U Cocaine Scr (test Negative *NA*(06/10/16 code = U Cocaine Scr) 8:08 PM) [facility] [id number] 02:08:00 Test Item Value Reference Range Interpretation Comments LDL (Calculated) (test code = LDL 75 (Calculated)) [facility] CenterIptyzgiESWTFJ8809-58-58 02:08:00 Test Item Value Reference Range Interpretation Comments VLDL (test code = VLDL) 27 [facility] [id number] 02:08:00 Test Item Value Reference Range Interpretation Comments Chol (test code = Chol) 133 [facility] CenterGyyzhyeTQPXEI9365-57-73 02:08:00 Test Item Value Reference Range Interpretation Comments Trig (test code = Trig) 133 [facility] CenterNvikxtcLPWEMH1144-33-30 02:08:00 Test Item Value Reference Range Interpretation Comments CHD Risk (test code = CHD Risk) 4.29 3.90-5.80 [facility] CenterTyhblgmUEANVL8955-74-14 02:08:00 Test Item Value Reference Range Interpretation Comments HDL (test code = HDL) 31 [facility] AND [id number] 02:08:00 Test Item Value Reference Range Interpretation Comments UA Urobilinogen (test code = UA <=1.0 mg/dL 0.1-1.0 Urobilinogen) [facility] AND [id number] 02:08:00 Test Item Value Reference Range Interpretation Comments UA Ketones (test code = UA Negative mg/dL Ketones) [facility] [id number] 02:08:00 Test Item Value Reference Range Interpretation Comments UA Glucose (test code = UA Glucose) 300 mg/dL [facility] AND [id number] 02:08:00 Test Item Value Reference Range Interpretation Comments UA Protein (test code = UA >=300 mg/dL Protein) [facility] AND [id number] 02:08:00 Test Item Value Reference Range Interpretation Comments UA pH (test code = UA pH) 6.0 5.0-8.0 [facility] AND [id number] 02:08:00 Test Item Value Reference Range Interpretation Comments UA Nitrite (test code Negative (06/10/16 8:08 = UA Nitrite) PM) [facility] AND [id number] 02:08:00 Test Item Value Reference Range Interpretation Comments UA Blood (test code = Trace *ABN*(06/10/16 UA Blood) 8:08 PM) [facility] AND [id number] 02:08:00 Test Item Value Reference Range Interpretation Comments UA Bili (test code = Negative *NA*(06/10/16 UA Bili) 8:08 PM) [facility] AND [id number] 02:08:00 Test Item Value Reference Range Interpretation Comments UA Mucus (test code = UA Mucus) Few /LPF [facility] AND [id number] 02:08:00 Test Item Value Reference Range Interpretation Comments UA RBC (test code = 4 See_Comment [Automa rohit message] The UA RBC) system which ge nerated this result transmit rohit reference range : <=2. The reference range was not used to interpr et this result as reji l/abnormal. [facility] AND [id number] 02:08:00 Test Item Value Reference Range Interpretation Comments UA Sq Epi (test code = UA Sq Epi) Few /LPF [facility] AND [id number] 02:08:00 Test Item Value Reference Range Interpretation Comments UA WBC (test code = 5 See_Comment [Automa rohit message] The UA WBC) system which ge nerated this result transmit rohit reference range : <=5. The reference range was not used to interpr et this result as reji l/abnormal. [facility] AND [id number] 02:08:00 Test Item Value Reference Range Interpretation Comments UA Leuk Est (test code Small *ABN*(06/10/16 = UA Leuk Est) 8:08 PM) [facility] AND [id number] 02:08:00 Test Item Value Reference Range Interpretation Comments UA Hyal Cast (test 1 See_Comment [Automat ed message] The code = UA Hyal Cast) system which generated this result transmit rohit reference range : <=2. The reference range was not used to interpr et this result as reji l/abnormal. [facility] AND [id number] 02:08:00 Test Item Value Reference Range Interpretation Comments UA Spec Grav (test code = UA Spec Grav) 1.009 [facility] AND [id number] 02:08:00 Test Item Value Reference Range Interpretation Comments UA Color (test code = Yellow *NA*(06/10/16 UA Color) 8:08 PM) [facility] AND [id number] 02:08:00 Test Item Value Reference Range Interpretation Comments UA Turbidity (test code = Clear (06/10/16 8:08 UA Turbidity) PM) [facility]manannUR[facility] [id number] 02:08:00 Test Item Value Reference Range Interpretation Comments U Preg (test code = U Negative (06/10/16 8:08 Preg) PM) [facility] [id number] 02:08:00 Test Item Value Reference Range Interpretation Comments U Protein (test code = U Protein) 375.4 [facility]manannURINE [id number] 02:08:00 Test Item Value Reference Range Interpretation Comments U Prot/Creat (test code = U Prot/Creat) 5.4 [facility] [id number] 02:08:00 Test Item Value Reference Range Interpretation Comments U Creatinine (test code = U Creatinine) 69.80 [facility]annCARDIAC [id number] 02:08:00 Test Item Value Reference Range Interpretation Comments CK MB Index (test 1.8 See_Comment [Automate d message] The code = CK MB Index) system w [facility] generated this result transmit rohit reference range : <=2.5. The reference range was not used to interpr et this result as reji l/abnormal. [facility]annCARDIAC [id number] 02:08:00 Test Item Value Reference Range Interpretation Comments CK MB (test code = CK MB) 2.9 0.5-3.6 [facility] [id number] 02:08:00 Test Item Value Reference Range Interpretation Comments Troponin-T (test code 0.061 See_Comment [Auto mated message] The = Troponin-T) system which g enerated this result transmit rohit reference range : <=0.100. The reference r leo was not used to interpr et this result as reji l/abnormal. [facility] YmagisAC [id number] 02:08:00 Test Item Value Reference Range Interpretation Comments Total CK (test code = Total CK) 159 12-191 [facility] CenterVetCompareCARShopReply [id number] 02:08:00 Test Item Value Reference Range Interpretation Comments Troponin-I (test code no gt See_Comment [Auto mated message] The = Troponin-I) system which g enerated this result transmit rohit reference range : <=0.40. The reference r leo was not used to interpr et this result as reji l/abnormal. [facility] [employer] [id number] 02:08:00 Test Item Value Reference Range Interpretation Comments Bili Total (test code = Bili Total) 0.2 0.2-1.3 [facility] [employer] [id number] 02:08:00 Test Item Value Reference Range Interpretation Comments Bili Direct (test code 0.1 See_Comment [Aut omated message] The = Bili Direct) system which generated this result tra nsmitted reference range : <=0.3. The reference r leo was not used to int erpret this result as reji l/abnormal. [facility] [employer] [id number] 02:08:00 Test Item Value Reference Range Interpretation Comments Bili Indirect (test 0.1 See_Comment [Automa rohit message] The code = Bili Indirect) system which generated this result tra nsmitted reference range : <=1.0. The reference r leo was not used to int erpret this result as normal/abnormal . [facility] [employer] [id number] 02:08:00 Test Item Value Reference Range Interpretation Comments Total Protein (test code = Total 5.7 6.4-8.4 Protein) [facility] [employer] [id number] 02:08:00 Test Item Value Reference Range Interpretation Comments A/G Ratio (test code = A/G Ratio) 0.5 0.7-1.6 [facility] [employer] [id number] 02:08:00 Test Item Value Reference Range Interpretation Comments Albumin Lvl (test code = Albumin Lvl) 1.8 3.5-5.0 [facility] [employer]2016-12-22 02:08:00 Test Item Value Reference Range Interpretation Comments Globulin (test code = Globulin) 3.9 2.7-4.2 [facility] [employer] [id number] 02:08:00 Test Item Value Reference Range Interpretation Comments Alk Phos (test code = Alk Phos) 99 39-136 [facility] [employer] [id number] 02:08:00 Test Item Value Reference Range Interpretation Comments AST (test code = AST) 21 See_Comment [Auto mated message] The system which ge nerated this result transmit rohit reference range : <=37. The reference range was not used to interpr et this result as reji l/abnormal. [facility] [employer] [id number] 02:08:00 Test Item Value Reference Range Interpretation Comments ALT (test code = ALT) 17 See_Comment [Auto mated message] The system which ge nerated this result transmit rohit reference range : <=65. The reference range was not used to interpr et this result as reji l/abnormal. [facility] [employer]2016-12-22 02:08:00 Test Item Value Reference Range Interpretation Comments UDS Note (test code = See Note *NA*(06/10/16 UDS Note) 8:08 PM) [facility] [employer] [id number] 02:08:00 Test Item Value Reference Range Interpretation Comments U Propoxyph Scr (test Negative *NA*(06/10/16 code = U Propoxyph Scr) 8:08 PM) [facility] [employer] [id number] 02:08:00 Test Item Value Reference Range Interpretation Comments U Opiate Scr (test Negative *NA*(06/10/16 code = U Opiate Scr) 8:08 PM) [facility] [employer] [id number] 02:08:00 Test Item Value Reference Range Interpretation Comments U Methadone Scr (test Negative *NA*(06/10/16 code = U Methadone Scr) 8:08 PM) [facility] [employer] [id number] 02:08:00 Test Item Value Reference Range Interpretation Comments U Phencyc Scr (test Negative *NA*(06/10/16 code = U Phencyc Scr) 8:08 PM) [facility] [employer] [id number] 02:08:00 Test Item Value Reference Range Interpretation Comments U Cannab Scr (test Negative *NA*(06/10/16 code = U Cannab Scr) 8:08 PM) [facility] [id number] 02:08:00 Test Item Value Reference Range Interpretation Comments U Amph Scr (test code Negative *NA*(06/10/16 = U Amph Scr) 8:08 PM) [facility] [id number] 02:08:00 Test Item Value Reference Range Interpretation Comments U Kelly Scr (test code Negative *NA*(06/10/16 = U Kelly Scr) 8:08 PM) [facility] [id number] 02:08:00 Test Item Value Reference Range Interpretation Comments U Benzodia Scr (test Negative *NA*(06/10/16 code = U Benzodia Scr) 8:08 PM) [facility] [id number] 02:08:00 Test Item Value Reference Range Interpretation Comments U Cocaine Scr (test Negative *NA*(06/10/16 code = U Cocaine Scr) 8:08 PM) [facility] [id number] 02:08:00 Test Item Value Reference Range Interpretation Comments LDL (Calculated) (test code = LDL 75 (Calculated)) [facility] [id number] 02:08:00 Test Item Value Reference Range Interpretation Comments VLDL (test code = VLDL) 27 [facility] [id number] 02:08:00 Test Item Value Reference Range Interpretation Comments Chol (test code = Chol) 133 [facility] [id number] 02:08:00 Test Item Value Reference Range Interpretation Comments Trig (test code = Trig) 133 [facility] [id number] 02:08:00 Test Item Value Reference Range Interpretation Comments CHD Risk (test code = CHD Risk) 4.29 3.90-5.80 [facility] [id number] 02:08:00 Test Item Value Reference Range Interpretation Comments HDL (test code = HDL) 31 [facility] AND [id number] 02:08:00 Test Item Value Reference Range Interpretation Comments UA Urobilinogen (test code = UA <=1.0 mg/dL 0.1-1.0 Urobilinogen) [facility] AND [id number] 02:08:00 Test Item Value Reference Range Interpretation Comments UA Ketones (test code = UA Negative mg/dL Ketones) [facility] AND [id number] 02:08:00 Test Item Value Reference Range Interpretation Comments UA Glucose (test code = UA Glucose) 300 mg/dL [facility] AND [id number] 02:08:00 Test Item Value Reference Range Interpretation Comments UA Protein (test code = UA >=300 mg/dL Protein) [facility] AND [id number] 02:08:00 Test Item Value Reference Range Interpretation Comments UA pH (test code = UA pH) 6.0 5.0-8.0 [facility] AND [id number] 02:08:00 Test Item Value Reference Range Interpretation Comments UA Nitrite (test code Negative (06/10/16 8:08 = UA Nitrite) PM) [facility] AND [id number] 02:08:00 Test Item Value Reference Range Interpretation Comments UA Blood (test code = Trace *ABN*(06/10/16 UA Blood) 8:08 PM) [facility] AND [id number] 02:08:00 Test Item Value Reference Range Interpretation Comments UA Bili (test code = Negative *NA*(06/10/16 UA Bili) 8:08 PM) [facility] AND [id number] 02:08:00 Test Item Value Reference Range Interpretation Comments UA Mucus (test code = UA Mucus) Few /LPF [facility] AND [id number] 02:08:00 Test Item Value Reference Range Interpretation Comments UA RBC (test code = 4 See_Comment [Automa rohit message] The UA RBC) system which ge nerated this result transmit rohit reference range : <=2. The reference range was not used to interpr et this result as reji l/abnormal. [facility] AND [id number] 02:08:00 Test Item Value Reference Range Interpretation Comments UA Sq Epi (test code = UA Sq Epi) Few /LPF [facility] AND [id number] 02:08:00 Test Item Value Reference Range Interpretation Comments UA WBC (test code = 5 See_Comment [Automa rohit message] The UA WBC) system which ge nerated this result transmit rohit reference range : <=5. The reference range was not used to interpr et this result as reji l/abnormal. [facility] [id number] 02:08:00 Test Item Value Reference Range Interpretation Comments UA Leuk Est (test code Small *ABN*(06/10/16 = UA Leuk Est) 8:08 PM) [facility] [id number] 02:08:00 Test Item Value Reference Range Interpretation Comments UA Hyal Cast (test 1 See_Comment [Automat ed message] The code = UA Hyal Cast) system which generated this result transmit rohit reference range : <=2. The reference range was not used to interpr et this result as reji l/abnormal. [facility] [id number] 02:08:00 Test Item Value Reference Range Interpretation Comments UA Spec Grav (test code = UA Spec Grav) 1.009 [facility] [id number] 02:08:00 Test Item Value Reference Range Interpretation Comments UA Color (test code = Yellow *NA*(06/10/16 UA Color) 8:08 PM) [facility] [id number] 02:08:00 Test Item Value Reference Range Interpretation Comments UA Turbidity (test code = Clear (06/10/16 8:08 UA Turbidity) PM) [facility] [id number] 02:08:00 Test Item Value Reference Range Interpretation Comments U Preg (test code = U Negative (06/10/16 8:08 Preg) PM) [facility] [id number] 02:08:00 Test Item Value Reference Range Interpretation Comments U Protein (test code = U Protein) 375.4 [facility] [id number] 02:08:00 Test Item Value Reference Range Interpretation Comments U Prot/Creat (test code = U Prot/Creat) 5.4 [facility] [id number] 02:08:00 Test Item Value Reference Range Interpretation Comments U Creatinine (test code = U Creatinine) 69.80 [facility] [id number] 02:08:00 Test Item Value Reference Range Interpretation Comments CK MB Index (test 1.8 See_Comment [Automate d message] The code = CK MB Index) system w [facility] generated this result transmit rohit reference range : <=2.5. The reference range was not used to interpr et this result as reji l/abnormal. [facility] AGLOGIC2016-12-22 02:08:00 Test Item Value Reference Range Interpretation Comments CK MB (test code = CK MB) 2.9 0.5-3.6 [facility] CenterDoughMainEPHRA[facility] [id number] 02:08:00 Test Item Value Reference Range Interpretation Comments Troponin-T (test code 0.061 See_Comment [Auto mated message] The = Troponin-T) system which g enerated this result transmit rohit reference range : <=0.100. The reference r leo was not used to interpr et this result as reji l/abnormal. [facility] [employer] [id number] 02:08:00 Test Item Value Reference Range Interpretation Comments Total CK (test code = Total CK) 159 12-191 [facility] CenterZenDeals [id number] 02:08:00 Test Item Value Reference Range Interpretation Comments Troponin-I (test code no gt See_Comment [Auto mated message] The = Troponin-I) system which g enerated this result transmit rohit reference range : <=0.40. The reference r leo was not used to interpr et this result as reji l/abnormal. [facility] [employer]2016-12-22 02:08:00 Test Item Value Reference Range Interpretation Comments Bili Total (test code = Bili Total) 0.2 0.2-1.3 [facility] [employer]2016-12-22 02:08:00 Test Item Value Reference Range Interpretation Comments Bili Direct (test code 0.1 See_Comment [Aut omated message] The = Bili Direct) system which generated this result tra nsmitted reference range : <=0.3. The reference r leo was not used to int erpret this result as reji l/abnormal. [facility] [employer]2016-12-22 02:08:00 Test Item Value Reference Range Interpretation Comments Bili Indirect (test 0.1 See_Comment [Automa rohit message] The code = Bili Indirect) system which generated this result tra nsmitted reference range : <=1.0. The reference r leo was not used to int erpret this result as normal/abnormal . [facility] [employer]2016-12-22 02:08:00 Test Item Value Reference Range Interpretation Comments Total Protein (test code = Total 5.7 6.4-8.4 Protein) [facility] CenterSnappyTV [id number] 02:08:00 Test Item Value Reference Range Interpretation Comments A/G Ratio (test code = A/G Ratio) 0.5 0.7-1.6 [facility]2016-12-22 02:08:00 Test Item Value Reference Range Interpretation Comments Albumin Lvl (test code = Albumin Lvl) 1.8 3.5-5.0 [facility] CenterSnappyTV [id number] 02:08:00 Test Item Value Reference Range Interpretation Comments Globulin (test code = Globulin) 3.9 2.7-4.2 [facility] CenterSnappyTV [id number] 02:08:00 Test Item Value Reference Range Interpretation Comments Alk Phos (test code = Alk Phos) 99 39-136 [facility] CenterSnappyTV [id number] 02:08:00 Test Item Value Reference Range Interpretation Comments AST (test code = AST) 21 See_Comment [Auto mated message] The system which ge nerated this result transmit rohit reference range : <=37. The reference range was not used to interpr et this result as reji l/abnormal. [facility] CenterSnappyTV [id number] 02:08:00 Test Item Value Reference Range Interpretation Comments ALT (test code = ALT) 17 See_Comment [Auto mated message] The system which ge nerated this result transmit rohit reference range : <=65. The reference range was not used to interpr et this result as reji l/abnormal. [facility] CenterGirls Guide To [id number] 02:08:00 Test Item Value Reference Range Interpretation Comments UDS Note (test code = See Note *NA*(06/10/16 UDS Note) 8:08 PM) [facility] C[id number] 02:08:00 Test Item Value Reference Range Interpretation Comments U Propoxyph Scr (test Negative *NA*(06/10/16 code = U Propoxyph Scr) 8:08 PM) [facility] CenterGirls Guide To [id number] 02:08:00 Test Item Value Reference Range Interpretation Comments U Opiate Scr (test Negative *NA*(06/10/16 code = U Opiate Scr) 8:08 PM) [facility] [id number] 02:08:00 Test Item Value Reference Range Interpretation Comments U Methadone Scr (test Negative *NA*(06/10/16 code = U Methadone Scr) 8:08 PM) [facility] [id number] 02:08:00 Test Item Value Reference Range Interpretation Comments U Phencyc Scr (test Negative *NA*(06/10/16 code = U Phencyc Scr) 8:08 PM) [facility] [id number] 02:08:00 Test Item Value Reference Range Interpretation Comments U Cannab Scr (test Negative *NA*(06/10/16 code = U Cannab Scr) 8:08 PM) [facility] CenterannDR[facility] [id number] 02:08:00 Test Item Value Reference Range Interpretation Comments U Amph Scr (test code Negative *NA*(06/10/16 = U Amph Scr) 8:08 PM) [facility] CenterannDRUG [id number] 02:08:00 Test Item Value Reference Range Interpretation Comments U Kelly Scr (test code Negative *NA*(06/10/16 = U Kelly Scr) 8:08 PM) [facility] CenterannDRUG [id number] 02:08:00 Test Item Value Reference Range Interpretation Comments U Benzodia Scr (test Negative *NA*(06/10/16 code = U Benzodia Scr) 8:08 PM) [facility] CenterannDRUG [id number] 02:08:00 Test Item Value Reference Range Interpretation Comments U Cocaine Scr (test Negative *NA*(06/10/16 code = U Cocaine Scr) 8:08 PM) [facility] [id number] 02:08:00 Test Item Value Reference Range Interpretation Comments LDL (Calculated) (test code = LDL 75 (Calculated)) [facility] [id number] 02:08:00 Test Item Value Reference Range Interpretation Comments VLDL (test code = VLDL) 27 [facility] [id number] 02:08:00 Test Item Value Reference Range Interpretation Comments Chol (test code = Chol) 133 [facility] [id number] 02:08:00 Test Item Value Reference Range Interpretation Comments Trig (test code = Trig) 133 [facility] [id number] 02:08:00 Test Item Value Reference Range Interpretation Comments CHD Risk (test code = CHD Risk) 4.29 3.90-5.80 [facility] [id number] 02:08:00 Test Item Value Reference Range Interpretation Comments HDL (test code = HDL) 31 [facility] AND [id number] 02:08:00 Test Item Value Reference Range Interpretation Comments UA Urobilinogen (test code = UA <=1.0 mg/dL 0.1-1.0 Urobilinogen) [facility] AND [id number] 02:08:00 Test Item Value Reference Range Interpretation Comments UA Ketones (test code = UA Negative mg/dL Ketones) [facility] AND [id number] 02:08:00 Test Item Value Reference Range Interpretation Comments UA Glucose (test code = UA Glucose) 300 mg/dL [facility] AND [id number] 02:08:00 Test Item Value Reference Range Interpretation Comments UA Protein (test code = UA >=300 mg/dL Protein) [facility] AND [id number] 02:08:00 Test Item Value Reference Range Interpretation Comments UA pH (test code = UA pH) 6.0 5.0-8.0 [facility] AND [id number] 02:08:00 Test Item Value Reference Range Interpretation Comments UA Nitrite (test code Negative (06/10/16 8:08 = UA Nitrite) PM) [facility] AND [id number] 02:08:00 Test Item Value Reference Range Interpretation Comments UA Blood (test code = Trace *ABN*(06/10/16 UA Blood) 8:08 PM) [facility] AND [id number] 02:08:00 Test Item Value Reference Range Interpretation Comments UA Bili (test code = Negative *NA*(06/10/16 UA Bili) 8:08 PM) [facility] AND [id number] 02:08:00 Test Item Value Reference Range Interpretation Comments UA Mucus (test code = UA Mucus) Few /LPF [facility] AND [id number] 02:08:00 Test Item Value Reference Range Interpretation Comments UA RBC (test code = 4 See_Comment [Automa rohit message] The UA RBC) system which ge nerated this result transmit rohit reference range : <=2. The reference range was not used to interpr et this result as reji l/abnormal. [facility] [id number] 02:08:00 Test Item Value Reference Range Interpretation Comments UA Sq Epi (test code = UA Sq Epi) Few /LPF [facility] AND [id number] 02:08:00 Test Item Value Reference Range Interpretation Comments UA WBC (test code = 5 See_Comment [Automa rohit message] The UA WBC) system which ge nerated this result transmit rohit reference range : <=5. The reference range was not used to interpr et this result as reji l/abnormal. [facility] AND [id number] 02:08:00 Test Item Value Reference Range Interpretation Comments UA Leuk Est (test code Small *ABN*(06/10/16 = UA Leuk Est) 8:08 PM) [facility] AND [id number] 02:08:00 Test Item Value Reference Range Interpretation Comments UA Hyal Cast (test 1 See_Comment [Automat ed message] The code = UA Hyal Cast) system which generated this result transmit rohit reference range : <=2. The reference range was not used to interpr et this result as reji l/abnormal. [facility] AND [id number] 02:08:00 Test Item Value Reference Range Interpretation Comments UA Spec Grav (test code = UA Spec Grav) 1.009 [facility] VinSUM[facility] AND [id number] 02:08:00 Test Item Value Reference Range Interpretation Comments UA Color (test code = Yellow *NA*(06/10/16 UA Color) 8:08 PM) [facility] AND [id number] 02:08:00 Test Item Value Reference Range Interpretation Comments UA Turbidity (test code = Clear (06/10/16 8:08 UA Turbidity) PM) [facility]2016-12-22 02:08:00 Test Item Value Reference Range Interpretation Comments U Preg (test code = U Negative (06/10/16 8:08 Preg) PM) [facility]2016-12-22 02:08:00 Test Item Value Reference Range Interpretation Comments U Protein (test code = U Protein) 375.4 [facility]2016-12-22 02:08:00 Test Item Value Reference Range Interpretation Comments U Prot/Creat (test code = U Prot/Creat) 5.4 [facility] [id number] 02:08:00 Test Item Value Reference Range Interpretation Comments U Creatinine (test code = U Creatinine) 69.80 [facility]annCARDIAC [id number] 02:08:00 Test Item Value Reference Range Interpretation Comments CK MB Index (test 1.8 See_Comment [Automate d message] The code = CK MB Index) system w [facility] generated this result transmit rohit reference range : <=2.5. The reference range was not used to interpr et this result as reji l/abnormal. [facility]CARDIAC [id number] 02:08:00 Test Item Value Reference Range Interpretation Comments CK MB (test code = CK MB) 2.9 0.5-3.6 [facility] [id number] 02:08:00 Test Item Value Reference Range Interpretation Comments Troponin-T (test code 0.061 See_Comment [Auto mated message] The = Troponin-T) system which g enerated this result transmit rohit reference range : <=0.100. The reference r leo was not used to interpr et this result as reji l/abnormal. [facility]CARD[facility]AC [id number] 02:08:00 Test Item Value Reference Range Interpretation Comments Total CK (test code = Total CK) 159 12-191 [facility]annC[facility] [id number] 02:08:00 Test Item Value Reference Range Interpretation Comments Troponin-I (test code no gt See_Comment [Auto mated message] The = Troponin-I) system which g enerated this result transmit rohit reference range : <=0.40. The reference r leo was not used to interpr et this result as reji l/abnormal. [facility] AlkymosannCHEM [id number] 02:08:00 Test Item Value Reference Range Interpretation Comments Bili Total (test code = Bili Total) 0.2 0.2-1.3 [facility]annCHEM [id number] 02:08:00 Test Item Value Reference Range Interpretation Comments Bili Direct (test code 0.1 See_Comment [Aut omated message] The = Bili Direct) system which generated this result tra nsmitted reference range : <=0.3. The reference r leo was not used to int erpret this result as reji l/abnormal. [facility] [employer] [id number] 02:08:00 Test Item Value Reference Range Interpretation Comments Bili Indirect (test 0.1 See_Comment [Automa rohit message] The code = Bili Indirect) system which generated this result tra nsmitted reference range : <=1.0. The reference r leo was not used to int erpret this result as normal/abnormal . [facility] [employer] [id number] 02:08:00 Test Item Value Reference Range Interpretation Comments Total Protein (test code = Total 5.7 6.4-8.4 Protein) [facility] [employer] [id number] 02:08:00 Test Item Value Reference Range Interpretation Comments A/G Ratio (test code = A/G Ratio) 0.5 0.7-1.6 [facility] [employer] [id number] 02:08:00 Test Item Value Reference Range Interpretation Comments Albumin Lvl (test code = Albumin Lvl) 1.8 3.5-5.0 [facility] [employer] [id number] 02:08:00 Test Item Value Reference Range Interpretation Comments Globulin (test code = Globulin) 3.9 2.7-4.2 [facility] [employer] [id number] 02:08:00 Test Item Value Reference Range Interpretation Comments Alk Phos (test code = Alk Phos) 99 39-136 [facility] [employer] [id number] 02:08:00 Test Item Value Reference Range Interpretation Comments AST (test code = AST) 21 See_Comment [Auto mated message] The system which ge nerated this result transmit rohit reference range : <=37. The reference range was not used to interpr et this result as reji l/abnormal. [facility] [employer] [id number] 02:08:00 Test Item Value Reference Range Interpretation Comments ALT (test code = ALT) 17 See_Comment [Auto mated message] The system which ge nerated this result transmit rohit reference range : <=65. The reference range was not used to interpr et this result as reji l/abnormal. [facility]RE[facility] [id number] 02:08:00 Test Item Value Reference Range Interpretation Comments UDS Note (test code = See Note *NA*(06/10/16 UDS Note) 8:08 PM) [facility] [id number] 02:08:00 Test Item Value Reference Range Interpretation Comments U Propoxyph Scr (test Negative *NA*(06/10/16 code = U Propoxyph Scr) 8:08 PM) [facility]DR[facility] [id number] 02:08:00 Test Item Value Reference Range Interpretation Comments U Opiate Scr (test Negative *NA*(06/10/16 code = U Opiate Scr) 8:08 PM) [facility]DR[facility] [id number] 02:08:00 Test Item Value Reference Range Interpretation Comments U Methadone Scr (test Negative *NA*(06/10/16 code = U Methadone Scr) 8:08 PM) [facility]DR[facility] [id number] 02:08:00 Test Item Value Reference Range Interpretation Comments U Phencyc Scr (test Negative *NA*(06/10/16 code = U Phencyc Scr) 8:08 PM) [facility]annDR[facility] [id number] 02:08:00 Test Item Value Reference Range Interpretation Comments U Cannab Scr (test Negative *NA*(06/10/16 code = U Cannab Scr) 8:08 PM) [facility] [id number] 02:08:00 Test Item Value Reference Range Interpretation Comments U Amph Scr (test code Negative *NA*(06/10/16 = U Amph Scr) 8:08 PM) [facility] [id number] 02:08:00 Test Item Value Reference Range Interpretation Comments U Kelly Scr (test code Negative *NA*(06/10/16 = U Kelly Scr) 8:08 PM) [facility] [id number] 02:08:00 Test Item Value Reference Range Interpretation Comments U Benzodia Scr (test Negative *NA*(06/10/16 code = U Benzodia Scr) 8:08 PM) [facility] [id number] 02:08:00 Test Item Value Reference Range Interpretation Comments U Cocaine Scr (test Negative *NA*(06/10/16 code = U Cocaine Scr) 8:08 PM) [facility] [id number] 02:08:00 Test Item Value Reference Range Interpretation Comments LDL (Calculated) (test code = LDL 75 (Calculated)) [facility] [id number] 02:08:00 Test Item Value Reference Range Interpretation Comments VLDL (test code = VLDL) 27 [facility] McAllenFuacmtdGZSYKK7065-11-03 02:08:00 Test Item Value Reference Range Interpretation Comments Chol (test code = Chol) 133 [facility] [id number] 02:08:00 Test Item Value Reference Range Interpretation Comments Trig (test code = Trig) 133 [facility] [id number] 02:08:00 Test Item Value Reference Range Interpretation Comments CHD Risk (test code = CHD Risk) 4.29 3.90-5.80 [facility] [id number] 02:08:00 Test Item Value Reference Range Interpretation Comments HDL (test code = HDL) 31 [facility] AND [id number] 02:08:00 Test Item Value Reference Range Interpretation Comments UA Urobilinogen (test code = UA <=1.0 mg/dL 0.1-1.0 Urobilinogen) [facility] AND [id number] 02:08:00 Test Item Value Reference Range Interpretation Comments UA Ketones (test code = UA Negative mg/dL Ketones) [facility] AND [id number] 02:08:00 Test Item Value Reference Range Interpretation Comments UA Glucose (test code = UA Glucose) 300 mg/dL [facility] AND [id number] 02:08:00 Test Item Value Reference Range Interpretation Comments UA Protein (test code = UA >=300 mg/dL Protein) [facility] AND [id number] 02:08:00 Test Item Value Reference Range Interpretation Comments UA pH (test code = UA pH) 6.0 5.0-8.0 [facility] AND [id number] 02:08:00 Test Item Value Reference Range Interpretation Comments UA Nitrite (test code Negative (06/10/16 8:08 = UA Nitrite) PM) [facility] AND [id number] 02:08:00 Test Item Value Reference Range Interpretation Comments UA Blood (test code = Trace *ABN*(06/10/16 UA Blood) 8:08 PM) [facility] AND [id number] 02:08:00 Test Item Value Reference Range Interpretation Comments UA Bili (test code = Negative *NA*(06/10/16 UA Bili) 8:08 PM) [facility] AND [id number] 02:08:00 Test Item Value Reference Range Interpretation Comments UA Mucus (test code = UA Mucus) Few /LPF [facility] [id number] 02:08:00 Test Item Value Reference Range Interpretation Comments UA RBC (test code = 4 See_Comment [Automa rohit message] The UA RBC) system which ge nerated this result transmit rohit reference range : <=2. The reference range was not used to interpr et this result as reji l/abnormal. [facility] AND [id number] 02:08:00 Test Item Value Reference Range Interpretation Comments UA Sq Epi (test code = UA Sq Epi) Few /LPF [facility] AND [id number] 02:08:00 Test Item Value Reference Range Interpretation Comments UA WBC (test code = 5 See_Comment [Automa rohit message] The UA WBC) system which ge nerated this result transmit rohit reference range : <=5. The reference range was not used to interpr et this result as reji l/abnormal. [facility] AND [id number] 02:08:00 Test Item Value Reference Range Interpretation Comments UA Leuk Est (test code Small *ABN*(06/10/16 = UA Leuk Est) 8:08 PM) [facility] AND [id number] 02:08:00 Test Item Value Reference Range Interpretation Comments UA Hyal Cast (test 1 See_Comment [Automat ed message] The code = UA Hyal Cast) system which generated this result transmit rohit reference range : <=2. The reference range was not used to interpr et this result as reji l/abnormal. [facility] AND [id number] 02:08:00 Test Item Value Reference Range Interpretation Comments UA Spec Grav (test code = UA Spec Grav) 1.009 [facility] [id number] 02:08:00 Test Item Value Reference Range Interpretation Comments UA Color (test code = Yellow *NA*(06/10/16 UA Color) 8:08 PM) [facility] AND [id number] 02:08:00 Test Item Value Reference Range Interpretation Comments UA Turbidity (test code = Clear (06/10/16 8:08 UA Turbidity) PM) [facility] CenterVetCompareSUM[facility] [id number] 02:08:00 Test Item Value Reference Range Interpretation Comments U Preg (test code = U Negative (06/10/16 8:08 Preg) PM) [facility] [id number] 02:08:00 Test Item Value Reference Range Interpretation Comments U Protein (test code = U Protein) 375.4 [facility] [id number] 02:08:00 Test Item Value Reference Range Interpretation Comments U Prot/Creat (test code = U Prot/Creat) 5.4 [facility] [id number] 02:08:00 Test Item Value Reference Range Interpretation Comments U Creatinine (test code = U Creatinine) 69.80 [facility] CenterSynlogic2016-12-22 02:08:00 Test Item Value Reference Range Interpretation Comments CK MB Index (test 1.8 See_Comment [Automate d message] The code = CK MB Index) system w [facility] generated this result transmit rohit reference range : <=2.5. The reference range was not used to interpr et this result as reji l/abnormal. [facility] AGLOGIC2016-12-22 02:08:00 Test Item Value Reference Range Interpretation Comments CK MB (test code = CK MB) 2.9 0.5-3.6 [facility] CenterSynlogic2016-12-22 02:08:00 Test Item Value Reference Range Interpretation Comments Troponin-T (test code 0.061 See_Comment [Auto mated message] The = Troponin-T) system which g enerated this result transmit rohit reference range : <=0.100. The reference r leo was not used to interpr et this result as reji l/abnormal. [facility] AGLOGIC2016-12-22 02:08:00 Test Item Value Reference Range Interpretation Comments Total CK (test code = Total CK) 159 12-191 [facility]00 Test Item Value Reference Range Interpretation Comments Troponin-I (test code no gt See_Comment [Auto mated message] The = Troponin-I) system which g enerated this result transmit rohit reference range : <=0.40. The reference r leo was not used to interpr et this result as reji l/abnormal. [facility]2016-12-22 02:08:00 Test Item Value Reference Range Interpretation Comments Bili Total (test code = Bili Total) 0.2 0.2-1.3 [place] [id number] 02:08:00 Test Item Value Reference Range Interpretation Comments Bili Direct (test code 0.1 See_Comment [Aut omated message] The = Bili Direct) system which generated this result tra nsmitted reference range : <=0.3. The reference r leo was not used to int erpret this result as reji l/abnormal. [place] [id number] 02:08:00 Test Item Value Reference Range Interpretation Comments Bili Indirect (test 0.1 See_Comment [Automa rohit message] The code = Bili Indirect) system which generated this result tra nsmitted reference range : <=1.0. The reference r leo was not used to int erpret this result as normal/abnormal . [place] [id number] 02:08:00 Test Item Value Reference Range Interpretation Comments Total Protein (test code = Total 5.7 6.4-8.4 Protein) [place] [id number] 02:08:00 Test Item Value Reference Range Interpretation Comments A/G Ratio (test code = A/G Ratio) 0.5 0.7-1.6 [place] 743266-12-22 02:08:00 Test Item Value Reference Range Interpretation Comments Albumin Lvl (test code = Albumin Lvl) 1.8 3.5-5.0 [place] 743266-12-22 02:08:00 Test Item Value Reference Range Interpretation Comments Globulin (test code = Globulin) 3.9 2.7-4.2 [place] [id number] 02:08:00 Test Item Value Reference Range Interpretation Comments Alk Phos (test code = Alk Phos) 99 39-136 [facility]2016-12-22 02:08:00 Test Item Value Reference Range Interpretation Comments AST (test code = AST) 21 See_Comment [Auto mated message] The system which ge nerated this result transmit rohit reference range : <=37. The reference range was not used to interpr et this result as reji l/abnormal. [facility] [id number] 02:08:00 Test Item Value Reference Range Interpretation Comments ALT (test code = ALT) 17 See_Comment [Auto mated message] The system which ge nerated this result transmit rohit reference range : <=65. The reference range was not used to interpr et this result as reji l/abnormal. [facility] [id number] 02:08:00 Test Item Value Reference Range Interpretation Comments UDS Note (test code = See Note *NA*(06/10/16 UDS Note) 8:08 PM) [facility] [id number] 02:08:00 Test Item Value Reference Range Interpretation Comments U Propoxyph Scr (test Negative *NA*(06/10/16 code = U Propoxyph Scr) 8:08 PM) [facility] [id number] 02:08:00 Test Item Value Reference Range Interpretation Comments U Opiate Scr (test Negative *NA*(06/10/16 code = U Opiate Scr) 8:08 PM) [facility] [id number] 02:08:00 Test Item Value Reference Range Interpretation Comments U Methadone Scr (test Negative *NA*(06/10/16 code = U Methadone Scr) 8:08 PM) [facility] [id number] 02:08:00 Test Item Value Reference Range Interpretation Comments U Phencyc Scr (test Negative *NA*(06/10/16 code = U Phencyc Scr) 8:08 PM) [facility] [id number] 02:08:00 Test Item Value Reference Range Interpretation Comments U Cannab Scr (test Negative *NA*(06/10/16 code = U Cannab Scr) 8:08 PM) [facility] [id number] 02:08:00 Test Item Value Reference Range Interpretation Comments U Amph Scr (test code Negative *NA*(06/10/16 = U Amph Scr) 8:08 PM) [facility] [id number] 02:08:00 Test Item Value Reference Range Interpretation Comments U Kelly Scr (test code Negative *NA*(06/10/16 = U Kelly Scr) 8:08 PM) [facility] [id number] 02:08:00 Test Item Value Reference Range Interpretation Comments U Benzodia Scr (test Negative *NA*(06/10/16 code = U Benzodia Scr) 8:08 PM) [facility] [id number] 02:08:00 Test Item Value Reference Range Interpretation Comments U Cocaine Scr (test Negative *NA*(06/10/16 code = U Cocaine Scr) 8:08 PM) [facility] SimncblIHKKRJ8989-21-50 02:08:00 Test Item Value Reference Range Interpretation Comments LDL (Calculated) (test code = LDL 75 (Calculated)) [facility] CenterStnwvciCEETJN9521-12-43 02:08:00 Test Item Value Reference Range Interpretation Comments VLDL (test code = VLDL) 27 [facility] CenterZpohpkrTIQZSF0960-63-12 02:08:00 Test Item Value Reference Range Interpretation Comments Chol (test code = Chol) 133 [facility]RpiwwnhUFHMUF8033-34-21 02:08:00 Test Item Value Reference Range Interpretation Comments Trig (test code = Trig) 133 [facility] CenterUxgwrrhYOSUCU6497-95-84 02:08:00 Test Item Value Reference Range Interpretation Comments CHD Risk (test code = CHD Risk) 4.29 3.90-5.80 [facility] CenterPilwuynIIITGE6930-08-13 02:08:00 Test Item Value Reference Range Interpretation Comments HDL (test code = HDL) 31 [facility] AND [id number] 02:08:00 Test Item Value Reference Range Interpretation Comments UA Urobilinogen (test code = UA <=1.0 mg/dL 0.1-1.0 Urobilinogen) [facility] AND [id number] 02:08:00 Test Item Value Reference Range Interpretation Comments UA Ketones (test code = UA Negative mg/dL Ketones) [facility] [id number] 02:08:00 Test Item Value Reference Range Interpretation Comments UA Glucose (test code = UA Glucose) 300 mg/dL [facility] AND [id number] 02:08:00 Test Item Value Reference Range Interpretation Comments UA Protein (test code = UA >=300 mg/dL Protein) [facility] AND [id number] 02:08:00 Test Item Value Reference Range Interpretation Comments UA pH (test code = UA pH) 6.0 5.0-8.0 [facility] AND [id number] 02:08:00 Test Item Value Reference Range Interpretation Comments UA Nitrite (test code Negative (06/10/16 8:08 = UA Nitrite) PM) [facility] AND [id number] 02:08:00 Test Item Value Reference Range Interpretation Comments UA Blood (test code = Trace *ABN*(06/10/16 UA Blood) 8:08 PM) [facility] AND [id number] 02:08:00 Test Item Value Reference Range Interpretation Comments UA Bili (test code = Negative *NA*(06/10/16 UA Bili) 8:08 PM) [facility] AND [id number] 02:08:00 Test Item Value Reference Range Interpretation Comments UA Mucus (test code = UA Mucus) Few /LPF [facility] AND [id number] 02:08:00 Test Item Value Reference Range Interpretation Comments UA RBC (test code = 4 See_Comment [Automa rohit message] The UA RBC) system which ge nerated this result transmit rohit reference range : <=2. The reference range was not used to interpr et this result as reji l/abnormal. [facility] AND [id number] 02:08:00 Test Item Value Reference Range Interpretation Comments UA Sq Epi (test code = UA Sq Epi) Few /LPF [facility] AND [id number] 02:08:00 Test Item Value Reference Range Interpretation Comments UA WBC (test code = 5 See_Comment [Automa rohit message] The UA WBC) system which ge nerated this result transmit rohit reference range : <=5. The reference range was not used to interpr et this result as reji l/abnormal. [facility] AND [id number] 02:08:00 Test Item Value Reference Range Interpretation Comments UA Leuk Est (test code Small *ABN*(06/10/16 = UA Leuk Est) 8:08 PM) [facility] AND [id number] 02:08:00 Test Item Value Reference Range Interpretation Comments UA Hyal Cast (test 1 See_Comment [Automat ed message] The code = UA Hyal Cast) system which generated this result transmit rohit reference range : <=2. The reference range was not used to interpr et this result as reji l/abnormal. [facility] AND [id number] 02:08:00 Test Item Value Reference Range Interpretation Comments UA Spec Grav (test code = UA Spec Grav) 1.009 [facility] AND [id number] 02:08:00 Test Item Value Reference Range Interpretation Comments UA Color (test code = Yellow *NA*(06/10/16 UA Color) 8:08 PM) [facility] AND [id number] 02:08:00 Test Item Value Reference Range Interpretation Comments UA Turbidity (test code = Clear (06/10/16 8:08 UA Turbidity) PM) [facility] [id number] 02:08:00 Test Item Value Reference Range Interpretation Comments U Preg (test code = U Negative (06/10/16 8:08 Preg) PM) [facility] [id number] 02:08:00 Test Item Value Reference Range Interpretation Comments U Protein (test code = U Protein) 375.4 [facility] BossmanannURINE [id number] 02:08:00 Test Item Value Reference Range Interpretation Comments U Prot/Creat (test code = U Prot/Creat) 5.4 [facility] [id number] 02:08:00 Test Item Value Reference Range Interpretation Comments U Creatinine (test code = U Creatinine) 69.80 [facility] BossmanannCARDIAC [id number] 16:53:00 Test Item Value Reference Range Interpretation Comments BNP (test code = BNP) 1135 [facility] AlkymosannCARDIAC [id number] 16:53:00 Test Item Value Reference Range Interpretation Comments Troponin-I (test code no gt See_Comment [Auto mated message] The = Troponin-I) system which g enerated this result transmit rohit reference range : <=0.40. The reference r leo was not used to interpr et this result as reji l/abnormal. [facility]manannCARDIAC [id number] 16:53:00 Test Item Value Reference Range Interpretation Comments BNP (test code = BNP) 1135 [facility] AlkymosannCARDIAC [id number] 16:53:00 Test Item Value Reference Range Interpretation Comments Troponin-I (test code no gt See_Comment [Auto mated message] The = Troponin-I) system which g enerated this result transmit rohit reference range : <=0.40. The reference r leo was not used to interpr et this result as reji l/abnormal. [facility] [employer]CAR[employer]ReplyAC [id number] 16:53:00 Test Item Value Reference Range Interpretation Comments BNP (test code = BNP) 1135 [facility] PantechCARShopReplyAC [id number] 16:53:00 Test Item Value Reference Range Interpretation Comments Troponin-I (test code no gt See_Comment [Auto mated message] The = Troponin-I) system which g enerated this result transmit rohit reference range : <=0.40. The reference r leo was not used to interpr et this result as reji l/abnormal. [facility] [employer] [id number] 16:53:00 Test Item Value Reference Range Interpretation Comments BNP (test code = BNP) 1135 [facility] AGLOGIC2016-12-21 16:53:00 Test Item Value Reference Range Interpretation Comments Troponin-I (test code no gt See_Comment [Auto mated message] The = Troponin-I) system which g enerated this result transmit rohit reference range : <=0.40. The reference r leo was not used to interpr et this result as reji l/abnormal. [facility] [employer] [id number] 16:53:00 Test Item Value Reference Range Interpretation Comments BNP (test code = BNP) 1135 [facility] [employer] [id number] 16:53:00 Test Item Value Reference Range Interpretation Comments Troponin-I (test code no gt See_Comment [Auto mated message] The = Troponin-I) system which g enerated this result transmit rohit reference range : <=0.40. The reference r leo was not used to interpr et this result as reji l/abnormal. [facility] [employer] [id number] 13:02:00 Test Item Value Reference Range Interpretation Comments Lactic Acid WB (test code = Lactic Acid 0.9 0.5-2.2 WB) [facility] [employer] [id number] 13:02:00 Test Item Value Reference Range Interpretation Comments Lactic Acid WB (test code = Lactic Acid 0.9 0.5-2.2 WB) [facility]2015-01-06 13:02:00 Test Item Value Reference Range Interpretation Comments Lactic Acid WB (test code = Lactic Acid 0.9 0.5-2.2 WB) [facility]2015-01-06 13:02:00 Test Item Value Reference Range Interpretation Comments Lactic Acid WB (test code = Lactic Acid 0.9 0.5-2.2 WB) [facility]2015-01-06 13:02:00 Test Item Value Reference Range Interpretation Comments Lactic Acid WB (test code = Lactic Acid 0.9 0.5-2.2 WB) [place] [id number] 12:29:44 Test Item Value Reference Range Interpretation Comments Valproic Acid Lvl (test code = Valproic 10 50-100 Acid Lvl) [place] [id number] 12:29:44 Test Item Value Reference Range Interpretation Comments Valproic Acid Lvl (test code = Valproic 10 50-100 Acid Lvl) [place] [id number] 12:29:44 Test Item Value Reference Range Interpretation Comments Valproic Acid Lvl (test code = Valproic 10 50-100 Acid Lvl) [place] [id number] 12:29:44 Test Item Value Reference Range Interpretation Comments Valproic Acid Lvl (test code = Valproic 10 50-100 Acid Lvl) [place] [id number] 12:29:44 Test Item Value Reference Range Interpretation Comments Valproic Acid Lvl (test code = Valproic 10 50-100 Acid Lvl) [place] [id number] 11:21:27 Test Item Value Reference Range Interpretation Comments hCG Tot (test code = hCG Tot) 1 [place] [id number] 11:21:27 Test Item Value Reference Range Interpretation Comments hCG Tot (test code = hCG Tot) 1 [place] [id number] 11:21:27 Test Item Value Reference Range Interpretation Comments hCG Tot (test code = hCG Tot) 1 [place] [id number] 11:21:27 Test Item Value Reference Range Interpretation Comments hCG Tot (test code = hCG Tot) 1 [id number] 11:21:27 Test Item Value Reference Range Interpretation Comments hCG Tot (test code = hCG Tot) 1 [facility]2015-01-06 11:21:00 Test Item Value Reference Range Interpretation Comments Albumin Lvl (test code = Albumin Lvl) 3.2 3.5-5.0 [facility]2015-01-06 11:21:00 Test Item Value Reference Range Interpretation Comments Total Protein (test code = Total 6.6 6.4-8.4 Protein) [facility]2015-01-06 11:21:00 Test Item Value Reference Range Interpretation Comments Bili Total (test code = Bili Total) 0.6 0.2-1.3 [facility]2015-01-06 11:21:00 Test Item Value Reference Range Interpretation Comments Alk Phos (test code = Alk Phos) 59 39-136 [facility]2015-01-06 11:21:00 Test Item Value Reference Range Interpretation Comments AST (test code = AST) 11 See_Comment [Auto mated message] The system which ge nerated this result transmit rohit reference range : <=37. The reference range was not used to interpr et this result as reji l/abnormal. [facility]2015-01-06 11:21:00 Test Item Value Reference Range Interpretation Comments ALT (test code = ALT) 17 See_Comment [Auto mated message] The system which ge nerated this result transmit rohit reference range : <=65. The reference range was not used to interpr et this result as reji l/abnormal. [facility]2015-01-06 11:21:00 Test Item Value Reference Range Interpretation Comments eGFR (test code = eGFR) 99 [facility]2015-01-06 11:21:00 Test Item Value Reference Range Interpretation Comments Glucose Lvl (test code = Glucose Lvl) 314 70-99 [facility]2015-01-06 11:21:00 Test Item Value Reference Range Interpretation Comments Potassium Lvl (test code = Potassium 3.4 3.5-5.1 Lvl) [facility]2015-01-06 11:21:00 Test Item Value Reference Range Interpretation Comments BUN (test code = BUN) 11 7-22 [facility]2015-01-06 11:21:00 Test Item Value Reference Range Interpretation Comments Creatinine Lvl (test code = Creatinine 0.8 0.5-1.4 Lvl) [facility]2015-01-06 11:21:00 Test Item Value Reference Range Interpretation Comments Sodium Lvl (test code = Sodium Lvl) 134 135-145 [facility]2015-01-06 11:21:00 Test Item Value Reference Range Interpretation Comments Chloride Lvl (test code = Chloride Lvl) 94 95-109 [facility]2015-01-06 11:21:00 Test Item Value Reference Range Interpretation Comments Calcium Lvl (test code = Calcium Lvl) 9.1 8.5-10.5 [facility]2015-01-06 11:21:00 Test Item Value Reference Range Interpretation Comments CO2 (test code = CO2) 24 24-32 [facility]2015-01-06 11:21:00 Test Item Value Reference Range Interpretation Comments A/G Ratio (test code = A/G Ratio) 0.9 0.7-1.6 [facility]2015-01-06 11:21:00 Test Item Value Reference Range Interpretation Comments Globulin (test code = Globulin) 3.4 2.0-4.0 [facility]2015-01-06 11:21:00 Test Item Value Reference Range Interpretation Comments B/C Ratio (test code = B/C Ratio) 14 6-25 [facility]2015-01-06 11:21:00 Test Item Value Reference Range Interpretation Comments AGAP (test code = AGAP) 19.4 10.0-20.0 [facility]2015-01-06 11:21:00 Test Item Value Reference Range Interpretation Comments Lipase Lvl (test code = Lipase Lvl) 81 73-393 [facility]EpvwoqdRDMOFQNOXF5255-63-46 11:21:00 Test Item Value Reference Range Interpretation Comments Large Plt (test code = Large Plt) Slight [facility] CenterTmqzseoVSPJKQWBHL4373-66-63 11:21:00 Test Item Value Reference Range Interpretation Comments Basophils # (test code 0.0 See_Comment [Aut omated message] The = Basophils #) system which generated this result tra nsmitted reference range : <=0.2. The reference r leo was not used to int erpret this result as normal/abnormal . [facility] CenterJzlmyarOADLRSRYZE8107-55-03 11:21:00 Test Item Value Reference Range Interpretation Comments Anisocyte (test code = 1+ *ABN*(06/26/14 5:21 Anisocyte) AM) [facility] CenterFwwjefdWPJBVWEGPV7050-64-40 11:21:00 Test Item Value Reference Range Interpretation Comments Monocytes # (test code 0.6 See_Comment [Aut omated message] The = Monocytes #) system which generated this result tra nsmitted reference range : <=0.8. The reference r leo was not used to int erpret this result as normal/abnormal . [facility] CenterHxiunqcVISVOODHSB5822-00-31 11:21:00 Test Item Value Reference Range Interpretation Comments Eosinophils # (test code 0.1 See_Comment [A utomated message] The = Eosinophils #) system whic h generated this result tra nsmitted reference range : <=0.5. The reference r leo was not used to int erpret this result as normal/abnormal . [facility] CenterYifdyemWPUIRLTMVF7024-38-88 11:21:00 Test Item Value Reference Range Interpretation Comments Lymphocytes # (test code = Lymphocytes 2.5 1.0-5.5 #) [facility] CenterRveivqkIQBPBMSPQR6377-21-92 11:21:00 Test Item Value Reference Range Interpretation Comments Segs (test code = Segs) 63.3 45.0-75.0 [facility] CenterCmlialoKGALRBLDJE7820-25-45 11:21:00 Test Item Value Reference Range Interpretation Comments Segs-Bands # (test code = Segs-Bands #) 5.6 1.5-8.1 [facility] CenterSoggnkuIFGHYNMXDS6906-31-15 11:21:00 Test Item Value Reference Range Interpretation Comments Basophils (test code = 0.0 See_Comment [Aut omated message] The Basophils) system which ge nerated this result tra nsmitted reference range : <=1.0. The reference r leo was not used to int erpret this result as normal/abnormal . [facility] CenterZjjwgujQMMVTCRLED9717-01-10 11:21:00 Test Item Value Reference Range Interpretation Comments Eosinophils (test code = 0.9 See_Comment [A utomated message] The Eosinophils) system which ge nerated this result tra nsmitted reference range : <=4.0. The reference r leo was not used to int erpret this result as normal/abnormal . [facility] CenterKmjktwjVJOZHQAULW7752-91-87 11:21:00 Test Item Value Reference Range Interpretation Comments Monocytes (test code = Monocytes) 7.0 2.0-12.0 [facility] CenterRquwbplULTMNKETUR1779-10-50 11:21:00 Test Item Value Reference Range Interpretation Comments Lymphocytes (test code = Lymphocytes) 28.8 20.0-40.0 [facility] CenterChcnmqhQEAJYHUGMN6174-84-23 11:21:00 Test Item Value Reference Range Interpretation Comments WBC (test code = WBC) 8.8 3.7-10.4 [facility] CenterCgjrgwfUSQFGTOHBI9419-82-83 11:21:00 Test Item Value Reference Range Interpretation Comments RBC (test code = RBC) 5.19 4.20-5.40 [facility] CenterNovjlzdLUKXCMPPWQ0722-10-37 11:21:00 Test Item Value Reference Range Interpretation Comments Hgb (test code = Hgb) 14.4 12.0-16.0 [facility] CenterJhpjjggKBCDUDBBBZ3111-09-01 11:21:00 Test Item Value Reference Range Interpretation Comments Hct (test code = Hct) 43.1 36.0-48.0 [facility] CenterTputmklMRKDFIFLJI1395-33-21 11:21:00 Test Item Value Reference Range Interpretation Comments MCV (test code = MCV) 83.1 80.0-98.0 [facility] CenterSllatnzICSMGVEGFL5022-14-10 11:21:00 Test Item Value Reference Range Interpretation Comments MCH (test code = MCH) 27.8 pg 27.0-31.0 [facility] CenterCqgosmaCQBYBALZAX7280-72-10 11:21:00 Test Item Value Reference Range Interpretation Comments RDW (test code = RDW) 13.1 11.5-14.5 [facility] CenterPumrraxPOVLEPMNSP5637-82-24 11:21:00 Test Item Value Reference Range Interpretation Comments MCHC (test code = MCHC) 33.5 32.0-36.0 [facility] CenterSvbqoyySKHKOYEVZL3227-15-45 11:21:00 Test Item Value Reference Range Interpretation Comments Platelet (test code = Platelet) 201 133-450 [facility] CenterJidksarOFYJTKSDGA5664-69-77 11:21:00 Test Item Value Reference Range Interpretation Comments MPV (test code = MPV) 10.4 7.4-10.4 [facility]2015-01-06 11:21:00 Test Item Value Reference Range Interpretation Comments Albumin Lvl (test code = Albumin Lvl) 3.2 3.5-5.0 [facility]2015-01-06 11:21:00 Test Item Value Reference Range Interpretation Comments Total Protein (test code = Total 6.6 6.4-8.4 Protein) [facility]2015-01-06 11:21:00 Test Item Value Reference Range Interpretation Comments Bili Total (test code = Bili Total) 0.6 0.2-1.3 [facility]2015-01-06 11:21:00 Test Item Value Reference Range Interpretation Comments Alk Phos (test code = Alk Phos) 59 39-136 [facility]2015-01-06 11:21:00 Test Item Value Reference Range Interpretation Comments AST (test code = AST) 11 See_Comment [Auto mated message] The system which ge nerated this result transmit rohit reference range : <=37. The reference range was not used to interpr et this result as reji l/abnormal. [facility]2015-01-06 11:21:00 Test Item Value Reference Range Interpretation Comments ALT (test code = ALT) 17 See_Comment [Auto mated message] The system which ge nerated this result transmit rohit reference range : <=65. The reference range was not used to interpr et this result as reji l/abnormal. [facility]2015-01-06 11:21:00 Test Item Value Reference Range Interpretation Comments eGFR (test code = eGFR) 99 [facility]2015-01-06 11:21:00 Test Item Value Reference Range Interpretation Comments Glucose Lvl (test code = Glucose Lvl) 314 70-99 [facility]2015-01-06 11:21:00 Test Item Value Reference Range Interpretation Comments Potassium Lvl (test code = Potassium 3.4 3.5-5.1 Lvl) [facility]2015-01-06 11:21:00 Test Item Value Reference Range Interpretation Comments BUN (test code = BUN) 11 7-22 [facility]2015-01-06 11:21:00 Test Item Value Reference Range Interpretation Comments Creatinine Lvl (test code = Creatinine 0.8 0.5-1.4 Lvl) [facility] [facility]:00 Test Item Value Reference Range Interpretation Comments Sodium Lvl (test code = Sodium Lvl) 134 135-145 [facility]2015-01-06 11:21:00 Test Item Value Reference Range Interpretation Comments Chloride Lvl (test code = Chloride Lvl) 94 95-109 [facility]2015-01-06 11:21:00 Test Item Value Reference Range Interpretation Comments Calcium Lvl (test code = Calcium Lvl) 9.1 8.5-10.5 [facility]2015-01-06 11:21:00 Test Item Value Reference Range Interpretation Comments CO2 (test code = CO2) 24 24-32 [facility]2015-01-06 11:21:00 Test Item Value Reference Range Interpretation Comments A/G Ratio (test code = A/G Ratio) 0.9 0.7-1.6 [facility]2015-01-06 11:21:00 Test Item Value Reference Range Interpretation Comments Globulin (test code = Globulin) 3.4 2.0-4.0 [facility]2015-01-06 11:21:00 Test Item Value Reference Range Interpretation Comments B/C Ratio (test code = B/C Ratio) 14 6-25 [facility]2015-01-06 11:21:00 Test Item Value Reference Range Interpretation Comments AGAP (test code = AGAP) 19.4 10.0-20.0 [facility]2015-01-06 11:21:00 Test Item Value Reference Range Interpretation Comments Lipase Lvl (test code = Lipase Lvl) 81 73-393 [facility]ZexueoqPBPWOTHRIN0443-65-58 11:21:00 Test Item Value Reference Range Interpretation Comments Large Plt (test code = Large Plt) Slight [facility] CenterAjsciwuBLRIOYNACY6979-41-88 11:21:00 Test Item Value Reference Range Interpretation Comments Basophils # (test code 0.0 See_Comment [Aut omated message] The = Basophils #) system which generated this result tra nsmitted reference range : <=0.2. The reference r leo was not used to int erpret this result as normal/abnormal . [facility] CenterQeksbecFSWMVHFBAB4324-79-05 11:21:00 Test Item Value Reference Range Interpretation Comments Anisocyte (test code = 1+ *ABN*(06/26/14 5:21 Anisocyte) AM) [facility] CenterYwaqaogKEAKWBZLRD1762-04-12 11:21:00 Test Item Value Reference Range Interpretation Comments Monocytes # (test code 0.6 See_Comment [Aut omated message] The = Monocytes #) system which generated this result tra nsmitted reference range : <=0.8. The reference r leo was not used to int erpret this result as normal/abnormal . [facility] CenterHwlbivcMYAENRXETR4219-62-33 11:21:00 Test Item Value Reference Range Interpretation Comments Eosinophils # (test code 0.1 See_Comment [A utomated message] The = Eosinophils #) system whic h generated this result tra nsmitted reference range : <=0.5. The reference r leo was not used to int erpret this result as normal/abnormal . [facility] CenterFtnnonaKYYLKRUWOF1041-84-60 11:21:00 Test Item Value Reference Range Interpretation Comments Lymphocytes # (test code = Lymphocytes 2.5 1.0-5.5 #) [facility] CenterQyzaqnrONYHQYKAFO2056-48-46 11:21:00 Test Item Value Reference Range Interpretation Comments Segs (test code = Segs) 63.3 45.0-75.0 [facility] CenterGdmgrcjECWNCWNKHM2546-13-69 11:21:00 Test Item Value Reference Range Interpretation Comments Segs-Bands # (test code = Segs-Bands #) 5.6 1.5-8.1 [facility] CenterIkpazkhOONETQVFUX5562-92-78 11:21:00 Test Item Value Reference Range Interpretation Comments Basophils (test code = 0.0 See_Comment [Aut omated message] The Basophils) system which ge nerated this result tra nsmitted reference range : <=1.0. The reference r leo was not used to int erpret this result as normal/abnormal . [facility] CenterDvckilqBOPAVJNECX7670-83-48 11:21:00 Test Item Value Reference Range Interpretation Comments Eosinophils (test code = 0.9 See_Comment [A utomated message] The Eosinophils) system which ge nerated this result tra nsmitted reference range : <=4.0. The reference r leo was not used to int erpret this result as normal/abnormal . [facility] CenterZgguosyAEOOAINHSP3952-23-16 11:21:00 Test Item Value Reference Range Interpretation Comments Monocytes (test code = Monocytes) 7.0 2.0-12.0 [facility] CenterFzftuarNDBUXYRYJL5167-96-15 11:21:00 Test Item Value Reference Range Interpretation Comments Lymphocytes (test code = Lymphocytes) 28.8 20.0-40.0 [facility] CenterUndbjapJNQONLLMEK0770-46-71 11:21:00 Test Item Value Reference Range Interpretation Comments WBC (test code = WBC) 8.8 3.7-10.4 [facility] CenterFxuqkxwVOSPWAPWIX7820-77-55 11:21:00 Test Item Value Reference Range Interpretation Comments RBC (test code = RBC) 5.19 4.20-5.40 [facility] CenterOxhtggkIEGKSJEUVK3642-95-11 11:21:00 Test Item Value Reference Range Interpretation Comments Hgb (test code = Hgb) 14.4 12.0-16.0 [facility] CenterNbaskfwZMNGJIHYQJ6847-83-78 11:21:00 Test Item Value Reference Range Interpretation Comments Hct (test code = Hct) 43.1 36.0-48.0 [facility] CenterHkzcgdzKAADZHKPLK4512-37-90 11:21:00 Test Item Value Reference Range Interpretation Comments MCV (test code = MCV) 83.1 80.0-98.0 [facility] CenterAwckpjyRTTKXIHCLQ4944-66-47 11:21:00 Test Item Value Reference Range Interpretation Comments MCH (test code = MCH) 27.8 pg 27.0-31.0 [facility] CenterIsjwzsaIDMEATIWMI9167-47-55 11:21:00 Test Item Value Reference Range Interpretation Comments RDW (test code = RDW) 13.1 11.5-14.5 [facility] CenterLwoqkwtNALLKDWOXQ7423-66-78 11:21:00 Test Item Value Reference Range Interpretation Comments MCHC (test code = MCHC) 33.5 32.0-36.0 [facility] CenterYvkebnqULZUVULEVQ4497-89-36 11:21:00 Test Item Value Reference Range Interpretation Comments Platelet (test code = Platelet) 201 133-450 [facility] CenterGxrqaguJVATYTHNZU7103-37-32 11:21:00 Test Item Value Reference Range Interpretation Comments MPV (test code = MPV) 10.4 7.4-10.4 [facility]2015-01-06 11:21:00 Test Item Value Reference Range Interpretation Comments Albumin Lvl (test code = Albumin Lvl) 3.2 3.5-5.0 [facility]2015-01-06 11:21:00 Test Item Value Reference Range Interpretation Comments Total Protein (test code = Total 6.6 6.4-8.4 Protein) [place] 743265-01-06 11:21:00 Test Item Value Reference Range Interpretation Comments Bili Total (test code = Bili Total) 0.6 0.2-1.3 [facility]2015-01-06 11:21:00 Test Item Value Reference Range Interpretation Comments Alk Phos (test code = Alk Phos) 59 39-136 [facility]2015-01-06 11:21:00 Test Item Value Reference Range Interpretation Comments AST (test code = AST) 11 See_Comment [Auto mated message] The system which ge nerated this result transmit rohit reference range : <=37. The reference range was not used to interpr et this result as reji l/abnormal. [facility]2015-01-06 11:21:00 Test Item Value Reference Range Interpretation Comments ALT (test code = ALT) 17 See_Comment [Auto mated message] The system which ge nerated this result transmit rohit reference range : <=65. The reference range was not used to interpr et this result as reji l/abnormal. [facility]2015-01-06 11:21:00 Test Item Value Reference Range Interpretation Comments eGFR (test code = eGFR) 99 [facility]2015-01-06 11:21:00 Test Item Value Reference Range Interpretation Comments Glucose Lvl (test code = Glucose Lvl) 314 70-99 [facility]2015-01-06 11:21:00 Test Item Value Reference Range Interpretation Comments Potassium Lvl (test code = Potassium 3.4 3.5-5.1 Lvl) [facility]2015-01-06 11:21:00 Test Item Value Reference Range Interpretation Comments BUN (test code = BUN) 11 7-22 [facility]2015-01-06 11:21:00 Test Item Value Reference Range Interpretation Comments Creatinine Lvl (test code = Creatinine 0.8 0.5-1.4 Lvl) [facility]2015-01-06 11:21:00 Test Item Value Reference Range Interpretation Comments Sodium Lvl (test code = Sodium Lvl) 134 135-145 [facility]2015-01-06 11:21:00 Test Item Value Reference Range Interpretation Comments Chloride Lvl (test code = Chloride Lvl) 94 95-109 [facility]2015-01-06 11:21:00 Test Item Value Reference Range Interpretation Comments Calcium Lvl (test code = Calcium Lvl) 9.1 8.5-10.5 [facility]2015-01-06 11:21:00 Test Item Value Reference Range Interpretation Comments CO2 (test code = CO2) 24 24-32 [facility]2015-01-06 11:21:00 Test Item Value Reference Range Interpretation Comments A/G Ratio (test code = A/G Ratio) 0.9 0.7-1.6 [facility]2015-01-06 11:21:00 Test Item Value Reference Range Interpretation Comments Globulin (test code = Globulin) 3.4 2.0-4.0 [facility]2015-01-06 11:21:00 Test Item Value Reference Range Interpretation Comments B/C Ratio (test code = B/C Ratio) 14 6-25 [facility]2015-01-06 11:21:00 Test Item Value Reference Range Interpretation Comments AGAP (test code = AGAP) 19.4 10.0-20.0 [facility]2015-01-06 11:21:00 Test Item Value Reference Range Interpretation Comments Lipase Lvl (test code = Lipase Lvl) 81 73-393 [facility] CenterDmnbwieXUGZFAVQGJ4498-28-52 11:21:00 Test Item Value Reference Range Interpretation Comments Large Plt (test code = Large Plt) Slight [facility] CenterAqlpczyGCHDDYMEGG1205-67-17 11:21:00 Test Item Value Reference Range Interpretation Comments Basophils # (test code 0.0 See_Comment [Aut omated message] The = Basophils #) system which generated this result tra nsmitted reference range : <=0.2. The reference r leo was not used to int erpret this result as normal/abnormal . [facility] CenterXwnuzzqAMQYDCRLDT7967-28-73 11:21:00 Test Item Value Reference Range Interpretation Comments Anisocyte (test code = 1+ *ABN*(06/26/14 5:21 Anisocyte) AM) [facility] CenterOaqhyptRMZOMWLUAT5549-06-15 11:21:00 Test Item Value Reference Range Interpretation Comments Monocytes # (test code 0.6 See_Comment [Aut omated message] The = Monocytes #) system which generated this result tra nsmitted reference range : <=0.8. The reference r leo was not used to int erpret this result as normal/abnormal . [facility] CenterUegeskwRWMUIDEXSX7782-33-36 11:21:00 Test Item Value Reference Range Interpretation Comments Eosinophils # (test code 0.1 See_Comment [A utomated message] The = Eosinophils #) system whic h generated this result tra nsmitted reference range : <=0.5. The reference r leo was not used to int erpret this result as normal/abnormal . [facility] CenterOgycvveBTHLPNHMPN6259-32-33 11:21:00 Test Item Value Reference Range Interpretation Comments Lymphocytes # (test code = Lymphocytes 2.5 1.0-5.5 #) [facility] CenterRkehpegFPUFSBMHFC9958-74-48 11:21:00 Test Item Value Reference Range Interpretation Comments Segs (test code = Segs) 63.3 45.0-75.0 [facility] CenterUuqffaaSACZZUGLLU2535-49-29 11:21:00 Test Item Value Reference Range Interpretation Comments Segs-Bands # (test code = Segs-Bands #) 5.6 1.5-8.1 [facility] CenterIlwvmimFDQLEOVBXY9208-30-54 11:21:00 Test Item Value Reference Range Interpretation Comments Basophils (test code = 0.0 See_Comment [Aut omated message] The Basophils) system which ge nerated this result tra nsmitted reference range : <=1.0. The reference r leo was not used to int erpret this result as normal/abnormal . [facility] CenterOlkmlcuVLNSKVVVJH7503-12-80 11:21:00 Test Item Value Reference Range Interpretation Comments Eosinophils (test code = 0.9 See_Comment [A utomated message] The Eosinophils) system which ge nerated this result tra nsmitted reference range : <=4.0. The reference r leo was not used to int erpret this result as normal/abnormal . [facility] CenterXhgytvzUZCWJYGQMT4690-72-03 11:21:00 Test Item Value Reference Range Interpretation Comments Monocytes (test code = Monocytes) 7.0 2.0-12.0 [facility] CenterUqtxjtyNIOVYEZHIP8176-02-13 11:21:00 Test Item Value Reference Range Interpretation Comments Lymphocytes (test code = Lymphocytes) 28.8 20.0-40.0 [facility] CenterZxuzaavVIUDKCOHVL8225-93-03 11:21:00 Test Item Value Reference Range Interpretation Comments WBC (test code = WBC) 8.8 3.7-10.4 [facility] CenterIkcmjbfJDZIVQWARA1127-11-54 11:21:00 Test Item Value Reference Range Interpretation Comments RBC (test code = RBC) 5.19 4.20-5.40 [facility]XshpgryAKRDIAHPHD4867-79-96 11:21:00 Test Item Value Reference Range Interpretation Comments Hgb (test code = Hgb) 14.4 12.0-16.0 [facility] CenterBslxefsCXSLQRZFZU1545-32-90 11:21:00 Test Item Value Reference Range Interpretation Comments Hct (test code = Hct) 43.1 36.0-48.0 [facility] CenterOynutccQBBGFGJMUO4533-88-03 11:21:00 Test Item Value Reference Range Interpretation Comments MCV (test code = MCV) 83.1 80.0-98.0 [facility] CenterUpntsmmSQTADAFWVZ5083-23-82 11:21:00 Test Item Value Reference Range Interpretation Comments MCH (test code = MCH) 27.8 pg 27.0-31.0 [facility] CenterZuujklnAPEYGHADOW5846-83-85 11:21:00 Test Item Value Reference Range Interpretation Comments RDW (test code = RDW) 13.1 11.5-14.5 [facility] CenterDgawseoSRIRSAZKYA0756-74-24 11:21:00 Test Item Value Reference Range Interpretation Comments MCHC (test code = MCHC) 33.5 32.0-36.0 [facility] CenterLwdvuweMBZAYNCDJZ9747-75-40 11:21:00 Test Item Value Reference Range Interpretation Comments Platelet (test code = Platelet) 201 133-450 [facility] CenterBumyqjlDXZPUBNJIF0609-95-65 11:21:00 Test Item Value Reference Range Interpretation Comments MPV (test code = MPV) 10.4 7.4-10.4 [facility]2015-01-06 11:21:00 Test Item Value Reference Range Interpretation Comments Albumin Lvl (test code = Albumin Lvl) 3.2 3.5-5.0 [facility]2015-01-06 11:21:00 Test Item Value Reference Range Interpretation Comments Total Protein (test code = Total 6.6 6.4-8.4 Protein) [facility]2015-01-06 11:21:00 Test Item Value Reference Range Interpretation Comments Bili Total (test code = Bili Total) 0.6 0.2-1.3 [facility]2015-01-06 11:21:00 Test Item Value Reference Range Interpretation Comments Alk Phos (test code = Alk Phos) 59 39-136 [facility]2015-01-06 11:21:00 Test Item Value Reference Range Interpretation Comments AST (test code = AST) 11 See_Comment [Auto mated message] The system which ge nerated this result transmit rohit reference range : <=37. The reference range was not used to interpr et this result as reji l/abnormal. [facility]2015-01-06 11:21:00 Test Item Value Reference Range Interpretation Comments ALT (test code = ALT) 17 See_Comment [Auto mated message] The system which ge nerated this result transmit rohit reference range : <=65. The reference range was not used to interpr et this result as reji l/abnormal. [facility]2015-01-06 11:21:00 Test Item Value Reference Range Interpretation Comments eGFR (test code = eGFR) 99 [facility]2015-01-06 11:21:00 Test Item Value Reference Range Interpretation Comments Glucose Lvl (test code = Glucose Lvl) 314 70-99 [facility]2015-01-06 11:21:00 Test Item Value Reference Range Interpretation Comments Potassium Lvl (test code = Potassium 3.4 3.5-5.1 Lvl) [facility]2015-01-06 11:21:00 Test Item Value Reference Range Interpretation Comments BUN (test code = BUN) 11 7-22 [facility]2015-01-06 11:21:00 Test Item Value Reference Range Interpretation Comments Creatinine Lvl (test code = Creatinine 0.8 0.5-1.4 Lvl) [facility]2015-01-06 11:21:00 Test Item Value Reference Range Interpretation Comments Sodium Lvl (test code = Sodium Lvl) 134 135-145 [facility]2015-01-06 11:21:00 Test Item Value Reference Range Interpretation Comments Chloride Lvl (test code = Chloride Lvl) 94 95-109 [facility]2015-01-06 11:21:00 Test Item Value Reference Range Interpretation Comments Calcium Lvl (test code = Calcium Lvl) 9.1 8.5-10.5 [facility]2015-01-06 11:21:00 Test Item Value Reference Range Interpretation Comments CO2 (test code = CO2) 24 24-32 [facility]2015-01-06 11:21:00 Test Item Value Reference Range Interpretation Comments A/G Ratio (test code = A/G Ratio) 0.9 0.7-1.6 [facility]2015-01-06 11:21:00 Test Item Value Reference Range Interpretation Comments Globulin (test code = Globulin) 3.4 2.0-4.0 [facility]2015-01-06 11:21:00 Test Item Value Reference Range Interpretation Comments B/C Ratio (test code = B/C Ratio) 14 6-25 [facility]2015-01-06 11:21:00 Test Item Value Reference Range Interpretation Comments AGAP (test code = AGAP) 19.4 10.0-20.0 [facility]2015-01-06 11:21:00 Test Item Value Reference Range Interpretation Comments Lipase Lvl (test code = Lipase Lvl) 81 73-393 [facility] CenterYlptjdsZMPCSLNDFL6799-95-51 11:21:00 Test Item Value Reference Range Interpretation Comments Large Plt (test code = Large Plt) Slight [facility] CenterXifqraeIOZGUHMMMF0211-42-76 11:21:00 Test Item Value Reference Range Interpretation Comments Basophils # (test code 0.0 See_Comment [Aut omated message] The = Basophils #) system which generated this result tra nsmitted reference range : <=0.2. The reference r leo was not used to int erpret this result as normal/abnormal . [facility] CenterYniwbhsMZHTSANXYN6954-56-72 11:21:00 Test Item Value Reference Range Interpretation Comments Anisocyte (test code = 1+ *ABN*(06/26/14 5:21 Anisocyte) AM) [facility] CenterXbhubwhVJFXWNORPA8020-12-45 11:21:00 Test Item Value Reference Range Interpretation Comments Monocytes # (test code 0.6 See_Comment [Aut omated message] The = Monocytes #) system which generated this result tra nsmitted reference range : <=0.8. The reference r leo was not used to int erpret this result as normal/abnormal . [facility] CenterRhnkoytQSAOSKCCDI4013-68-22 11:21:00 Test Item Value Reference Range Interpretation Comments Eosinophils # (test code 0.1 See_Comment [A utomated message] The = Eosinophils #) system whic h generated this result tra nsmitted reference range : <=0.5. The reference r leo was not used to int erpret this result as normal/abnormal . [facility] CenterVykbqnpTIICKDLYMT1639-97-12 11:21:00 Test Item Value Reference Range Interpretation Comments Lymphocytes # (test code = Lymphocytes 2.5 1.0-5.5 #) [facility] CenterBelrqytVQWRGKQRLU6909-74-22 11:21:00 Test Item Value Reference Range Interpretation Comments Segs (test code = Segs) 63.3 45.0-75.0 [facility] CenterCobtbdeLUEQHPXSNT9843-93-50 11:21:00 Test Item Value Reference Range Interpretation Comments Segs-Bands # (test code = Segs-Bands #) 5.6 1.5-8.1 [facility] CenterSltowuuOCDNHVOWZL9055-98-44 11:21:00 Test Item Value Reference Range Interpretation Comments Basophils (test code = 0.0 See_Comment [Aut omated message] The Basophils) system which ge nerated this result tra nsmitted reference range : <=1.0. The reference r leo was not used to int erpret this result as normal/abnormal . [facility] CenterNttlboeEUKEGBIYIH5636-27-28 11:21:00 Test Item Value Reference Range Interpretation Comments Eosinophils (test code = 0.9 See_Comment [A utomated message] The Eosinophils) system which ge nerated this result tra nsmitted reference range : <=4.0. The reference r leo was not used to int erpret this result as normal/abnormal . [facility] CenterBawybupVVOTOWXJPW3900-29-86 11:21:00 Test Item Value Reference Range Interpretation Comments Monocytes (test code = Monocytes) 7.0 2.0-12.0 [facility] CenterOfvgfdaPUCCVUTVJM7489-63-13 11:21:00 Test Item Value Reference Range Interpretation Comments Lymphocytes (test code = Lymphocytes) 28.8 20.0-40.0 [facility] CenterEzccysbLUEVZKRRRR9688-81-82 11:21:00 Test Item Value Reference Range Interpretation Comments WBC (test code = WBC) 8.8 3.7-10.4 [facility] CenterDcakspoSKQJRQIKYV5805-72-08 11:21:00 Test Item Value Reference Range Interpretation Comments RBC (test code = RBC) 5.19 4.20-5.40 [facility] CenterDdyyxdiBCFXWGOZDH6017-90-74 11:21:00 Test Item Value Reference Range Interpretation Comments Hgb (test code = Hgb) 14.4 12.0-16.0 [facility] CenterOgafkfnUBXCRAIOBZ9732-77-04 11:21:00 Test Item Value Reference Range Interpretation Comments Hct (test code = Hct) 43.1 36.0-48.0 [facility] CenterEbtbjimTKMPNCYHRM9971-03-89 11:21:00 Test Item Value Reference Range Interpretation Comments MCV (test code = MCV) 83.1 80.0-98.0 [facility] CenterRqgaosxVCLZLQHTQF4178-29-74 11:21:00 Test Item Value Reference Range Interpretation Comments MCH (test code = MCH) 27.8 pg 27.0-31.0 [facility] CenterCtiayvzFLGVOOHRIQ6710-68-00 11:21:00 Test Item Value Reference Range Interpretation Comments RDW (test code = RDW) 13.1 11.5-14.5 [facility] CenterFxkgvgjTKZKGBOZQG9373-45-92 11:21:00 Test Item Value Reference Range Interpretation Comments MCHC (test code = MCHC) 33.5 32.0-36.0 [facility] CenterRggjgbjWULGNZMGUI4053-57-44 11:21:00 Test Item Value Reference Range Interpretation Comments Platelet (test code = Platelet) 201 133-450 [facility] CenterCnatqrgAYITDPXLLC9137-37-13 11:21:00 Test Item Value Reference Range Interpretation Comments MPV (test code = MPV) 10.4 7.4-10.4 [facility]2015-01-06 11:21:00 Test Item Value Reference Range Interpretation Comments Albumin Lvl (test code = Albumin Lvl) 3.2 3.5-5.0 [facility] FYIZL7491-12-62 11:21:00 Test Item Value Reference Range Interpretation Comments Total Protein (test code = Total 6.6 6.4-8.4 Protein) [facility]2015-01-06 11:21:00 Test Item Value Reference Range Interpretation Comments Bili Total (test code = Bili Total) 0.6 0.2-1.3 [place] 743265-01-06 11:21:00 Test Item Value Reference Range Interpretation Comments Alk Phos (test code = Alk Phos) 59 39-136 [facility]2015-01-06 11:21:00 Test Item Value Reference Range Interpretation Comments AST (test code = AST) 11 See_Comment [Auto mated message] The system which ge nerated this result transmit rohti reference range : <=37. The reference range was not used to interpr et this result as reji l/abnormal. [facility]2015-01-06 11:21:00 Test Item Value Reference Range Interpretation Comments ALT (test code = ALT) 17 See_Comment [Auto mated message] The system which ge nerated this result transmit rohit reference range : <=65. The reference range was not used to interpr et this result as reji l/abnormal. [facility]2015-01-06 11:21:00 Test Item Value Reference Range Interpretation Comments eGFR (test code = eGFR) 99 [facility]2015-01-06 11:21:00 Test Item Value Reference Range Interpretation Comments Glucose Lvl (test code = Glucose Lvl) 314 70-99 [facility]2015-01-06 11:21:00 Test Item Value Reference Range Interpretation Comments Potassium Lvl (test code = Potassium 3.4 3.5-5.1 Lvl) [facility]2015-01-06 11:21:00 Test Item Value Reference Range Interpretation Comments BUN (test code = BUN) 11 7-22 [facility]2015-01-06 11:21:00 Test Item Value Reference Range Interpretation Comments Creatinine Lvl (test code = Creatinine 0.8 0.5-1.4 Lvl) [facility]2015-01-06 11:21:00 Test Item Value Reference Range Interpretation Comments Sodium Lvl (test code = Sodium Lvl) 134 135-145 [facility]2015-01-06 11:21:00 Test Item Value Reference Range Interpretation Comments Chloride Lvl (test code = Chloride Lvl) 94 95-109 [facility]2015-01-06 11:21:00 Test Item Value Reference Range Interpretation Comments Calcium Lvl (test code = Calcium Lvl) 9.1 8.5-10.5 [facility]2015-01-06 11:21:00 Test Item Value Reference Range Interpretation Comments CO2 (test code = CO2) 24 24-32 [facility]2015-01-06 11:21:00 Test Item Value Reference Range Interpretation Comments A/G Ratio (test code = A/G Ratio) 0.9 0.7-1.6 [facility]2015-01-06 11:21:00 Test Item Value Reference Range Interpretation Comments Globulin (test code = Globulin) 3.4 2.0-4.0 [facility]2015-01-06 11:21:00 Test Item Value Reference Range Interpretation Comments B/C Ratio (test code = B/C Ratio) 14 6-25 [facility]2015-01-06 11:21:00 Test Item Value Reference Range Interpretation Comments AGAP (test code = AGAP) 19.4 10.0-20.0 [facility]2015-01-06 11:21:00 Test Item Value Reference Range Interpretation Comments Lipase Lvl (test code = Lipase Lvl) 81 73-393 [facility]NdzeociBFIQONCPDR6948-94-61 11:21:00 Test Item Value Reference Range Interpretation Comments Large Plt (test code = Large Plt) Slight [facility] CenterCcyphjnBAKMCBJJFU0143-22-61 11:21:00 Test Item Value Reference Range Interpretation Comments Basophils # (test code 0.0 See_Comment [Aut omated message] The = Basophils #) system which generated this result tra nsmitted reference range : <=0.2. The reference r leo was not used to int erpret this result as normal/abnormal . [facility] CenterHglfonzLDVQSAOGXS4977-15-77 11:21:00 Test Item Value Reference Range Interpretation Comments Anisocyte (test code = 1+ *ABN*(06/26/14 5:21 Anisocyte) AM) [facility] CenterEiqsgevQXBVPIKERI9861-13-40 11:21:00 Test Item Value Reference Range Interpretation Comments Monocytes # (test code 0.6 See_Comment [Aut omated message] The = Monocytes #) system which generated this result tra nsmitted reference range : <=0.8. The reference r leo was not used to int erpret this result as normal/abnormal . [facility] CenterIsumqhoHPRPCZSGEV1152-56-03 11:21:00 Test Item Value Reference Range Interpretation Comments Eosinophils # (test code 0.1 See_Comment [A utomated message] The = Eosinophils #) system whic h generated this result tra nsmitted reference range : <=0.5. The reference r leo was not used to int erpret this result as normal/abnormal . [facility] CenterEzmbcatYWJUBRORNJ1816-49-88 11:21:00 Test Item Value Reference Range Interpretation Comments Lymphocytes # (test code = Lymphocytes 2.5 1.0-5.5 #) [facility] CenterKajaricEZALWPMOPU3268-47-30 11:21:00 Test Item Value Reference Range Interpretation Comments Segs (test code = Segs) 63.3 45.0-75.0 [facility] CenterSjslqwsMRLLVVTQNO5520-61-23 11:21:00 Test Item Value Reference Range Interpretation Comments Segs-Bands # (test code = Segs-Bands #) 5.6 1.5-8.1 [facility] CenterKnmhxudOSDHBEYBIV6760-59-37 11:21:00 Test Item Value Reference Range Interpretation Comments Basophils (test code = 0.0 See_Comment [Aut omated message] The Basophils) system which ge nerated this result tra nsmitted reference range : <=1.0. The reference r leo was not used to int erpret this result as normal/abnormal . [facility] CenterIatwpdfURQQASUANB9752-20-93 11:21:00 Test Item Value Reference Range Interpretation Comments Eosinophils (test code = 0.9 See_Comment [A utomated message] The Eosinophils) system which ge nerated this result tra nsmitted reference range : <=4.0. The reference r leo was not used to int erpret this result as normal/abnormal . [facility] CenterZvobsqhRTJNREAIBM1008-95-78 11:21:00 Test Item Value Reference Range Interpretation Comments Monocytes (test code = Monocytes) 7.0 2.0-12.0 [facility] CenterGlajpsrMZNQQGUWKM7327-62-26 11:21:00 Test Item Value Reference Range Interpretation Comments Lymphocytes (test code = Lymphocytes) 28.8 20.0-40.0 [facility] CenterObarrgiZPCHITNHQD2817-21-18 11:21:00 Test Item Value Reference Range Interpretation Comments WBC (test code = WBC) 8.8 3.7-10.4 [facility] CenterNwbjaitABIJTZFMAM5977-55-42 11:21:00 Test Item Value Reference Range Interpretation Comments RBC (test code = RBC) 5.19 4.20-5.40 [facility] CenterPjbxgnlYFMRQFQEPR2267-90-71 11:21:00 Test Item Value Reference Range Interpretation Comments Hgb (test code = Hgb) 14.4 12.0-16.0 [facility] CenterTfmcqlqQOCJJPXFIK8042-45-60 11:21:00 Test Item Value Reference Range Interpretation Comments Hct (test code = Hct) 43.1 36.0-48.0 [facility] CenterLknplsjGAXFKESZBT6567-79-28 11:21:00 Test Item Value Reference Range Interpretation Comments MCV (test code = MCV) 83.1 80.0-98.0 [facility] CenterUengavjCMNAZIQCEY6433-90-46 11:21:00 Test Item Value Reference Range Interpretation Comments MCH (test code = MCH) 27.8 pg 27.0-31.0 [facility] CenterShidnfcJKZZAJCGJN1006-97-62 11:21:00 Test Item Value Reference Range Interpretation Comments RDW (test code = RDW) 13.1 11.5-14.5 [facility] CenterHnvldbpFVEYAPVRYI6387-82-13 11:21:00 Test Item Value Reference Range Interpretation Comments MCHC (test code = MCHC) 33.5 32.0-36.0 [facility] CenterVwwgpzwHZWFGUMXGC4151-87-67 11:21:00 Test Item Value Reference Range Interpretation Comments Platelet (test code = Platelet) 201 133-450 [facility] CenterJcqevkjQSKBKUHXTZ1689-60-91 11:21:00 Test Item Value Reference Range Interpretation Comments MPV (test code = MPV) 10.4 7.4-10.4 [facility]woodHmslcvqLEJLSIJJGT2891-18-45 04:48:55 Test Item Value Reference Range Interpretation Comments UA Franklin Yeast (test code = UA Occasional /HPF A Franklin Yeast) [facility]woodQiktfrcYQQQFMPURE5869-13-00 04:48:55 Test Item Value Reference Range Interpretation Comments UA Mucus (test code = UA Mucus) Few /LPF N [facility]woodPmxattyZUDSCQHSNA0899-12-68 04:48:55 Test Item Value Reference Range Interpretation Comments UA Sq Epi (test code = UA Sq Moderate /LPF A Epi) [facility]VggrwecRYOGLUBGFP4264-97-71 04:48:55 Test Item Value Reference Range Interpretation Comments Micro? (test code = Performed (04/14/2013 N Micro?) 23:48:55) [facility]woodRpkqlzcGCKUMNWVQB9551-74-80 04:48:55 Test Item Value Reference Range Interpretation Comments UA WBC (test code = UA WBC) 0-2 /HPF N [facility] NorthwestPizxkmvDQZMPSJUMH9216-60-07 04:48:55 Test Item Value Reference Range Interpretation Comments UA Bacteria (test code = UA Occasional /HPF N Bacteria) [facility]woodWrvluaoGPQRNSFQRG2543-75-46 04:48:55 Test Item Value Reference Range Interpretation Comments UA Glucose (test code = UA Glucose) 500 mg/dL A [facility] KingwoodUvenqraCVXBFRJDZP0717-46-17 04:48:55 Test Item Value Reference Range Interpretation Comments UA Bili (test code = Negative *NA*(04/14/2013 UA Bili) 23:48:55) [facility]woodDkkvokrKWJFNOSQZN8333-26-67 04:48:55 Test Item Value Reference Range Interpretation Comments UA Ketones (test code = Trace A UA Ketones) *ABN*(04/14/2013 23:48:55) [facility]woodHwsxoekBHWUJSYPFZ1395-38-50 04:48:55 Test Item Value Reference Range Interpretation Comments UA Blood (test code = Negative (04/14/2013 N UA Blood) 23:48:55) [facility]woodKwshryfETIZXVPASE1825-06-73 04:48:55 Test Item Value Reference Range Interpretation Comments UA Urobilinogen (test code = UA 0.2 0.1-1.0 N Urobilinogen) [facility]woodYuvrbsgEEMSRACYML6108-19-89 04:48:55 Test Item Value Reference Range Interpretation Comments UA Nitrite (test code Negative (04/14/2013 N = UA Nitrite) 23:48:55) [facility]woodMrspxnuXDETJFSAEL8741-30-44 04:48:55 Test Item Value Reference Range Interpretation Comments UA Leuk Est (test Negative (04/14/2013 N code = UA Leuk Est) 23:48:55) [facility]woodFxhxhbmAVPLENAXCL3248-69-91 04:48:55 Test Item Value Reference Range Interpretation Comments UA Turbidity (test code = Clear (04/14/2013 N UA Turbidity) 23:48:55) [facility] KingwoodRujhilmBUNKSTRCGG6975-78-45 04:48:55 Test Item Value Reference Range Interpretation Comments UA Color (test code = Yellow *NA*(04/14/2013 UA Color) 23:48:55) [facility]woodHrbobrxLMSSGLEIIS2952-04-25 04:48:55 Test Item Value Reference Range Interpretation Comments UA pH (test code = UA pH) 7.0 1 5.0-8.0 N [facility] KingwoodZsoknsgIWUIDHJQKX9380-44-32 04:48:55 Test Item Value Reference Range Interpretation Comments UA Spec Grav (test code = UA Spec 1.025 1 N Grav) [facility] KingwoodWbizlkoSDMPYMPVOD6664-40-66 04:48:55 Test Item Value Reference Range Interpretation Comments UA Protein (test code = Trace A UA Protein) *ABN*(04/14/2013 23:48:55) [facility]woodMrnkoywTVORFBKNWD6304-19-63 04:48:55 Test Item Value Reference Range Interpretation Comments UA Franklin Yeast (test code = UA Occasional /HPF A Franklin Yeast) [facility] KingwoodRosbureDGUQMTTDSO2960-99-11 04:48:55 Test Item Value Reference Range Interpretation Comments UA Mucus (test code = UA Mucus) Few /LPF N [facility] KingwoodLudwqnrSLBZFSRJWC4413-55-18 04:48:55 Test Item Value Reference Range Interpretation Comments UA Sq Epi (test code = UA Sq Moderate /LPF A Epi) [facility] KingwoodIyepnalWAUWPCKEMC7766-70-80 04:48:55 Test Item Value Reference Range Interpretation Comments Micro? (test code = Performed (04/14/2013 N Micro?) 23:48:55) [facility]woodDhrsomiGKZPWUPYWF5572-15-85 04:48:55 Test Item Value Reference Range Interpretation Comments UA WBC (test code = UA WBC) 0-2 /HPF N [facility] KingwoodMlpafkeMGUAQVVXCH0286-05-93 04:48:55 Test Item Value Reference Range Interpretation Comments UA Bacteria (test code = UA Occasional /HPF N Bacteria) [facility] KingwoodIzuoserOXVYIQNGSQ9252-86-20 04:48:55 Test Item Value Reference Range Interpretation Comments UA Glucose (test code = UA Glucose) 500 mg/dL A [facility] KingwoodCcjvhquULNOVNMXAQ2782-66-54 04:48:55 Test Item Value Reference Range Interpretation Comments UA Bili (test code = Negative *NA*(04/14/2013 UA Bili) 23:48:55) [facility] KingwoodRduzbjoIROSIYLIJQ8543-87-82 04:48:55 Test Item Value Reference Range Interpretation Comments UA Ketones (test code = Trace A UA Ketones) *ABN*(04/14/2013 23:48:55) [facility]woodVfhebmeIPSIMDKHIK7187-04-78 04:48:55 Test Item Value Reference Range Interpretation Comments UA Blood (test code = Negative (04/14/2013 N UA Blood) 23:48:55) [facility]woodMlqclltIFZRBEHUKY4233-89-37 04:48:55 Test Item Value Reference Range Interpretation Comments UA Urobilinogen (test code = UA 0.2 0.1-1.0 N Urobilinogen) [facility]woodDkvvjozTRREKUNTYQ5801-31-29 04:48:55 Test Item Value Reference Range Interpretation Comments UA Nitrite (test code Negative (04/14/2013 N = UA Nitrite) 23:48:55) [facility]woodMlzhzmoQHXCRCOOZK4124-78-00 04:48:55 Test Item Value Reference Range Interpretation Comments UA Leuk Est (test Negative (04/14/2013 N code = UA Leuk Est) 23:48:55) [facility] KingwoodUzmgfqjCGTNLISREC0725-97-24 04:48:55 Test Item Value Reference Range Interpretation Comments UA Turbidity (test code = Clear (04/14/2013 N UA Turbidity) 23:48:55) [facility] KingwoodUbybuujPNLFTJJLIU3179-77-05 04:48:55 Test Item Value Reference Range Interpretation Comments UA Color (test code = Yellow *NA*(04/14/2013 UA Color) 23:48:55) [facility] KingwoodZsstirlZFSLOUNPNA2719-00-59 04:48:55 Test Item Value Reference Range Interpretation Comments UA pH (test code = UA pH) 7.0 1 5.0-8.0 N [facility]woodSeomlzjZREPXRTFYM6048-02-08 04:48:55 Test Item Value Reference Range Interpretation Comments UA Spec Grav (test code = UA Spec 1.025 1 N Grav) [facility] KingwoodQgiekfyBABFDADBBY0969-26-46 04:48:55 Test Item Value Reference Range Interpretation Comments UA Protein (test code = Trace A UA Protein) *ABN*(04/14/2013 23:48:55) [facility] KingwoodHworaeuNALBVUBXLG3173-09-50 04:48:55 Test Item Value Reference Range Interpretation Comments UA Franklin Yeast (test code = UA Occasional /HPF A Franklin Yeast) [facility] KingwoodKealicvVSIDPYRMNO1870-64-40 04:48:55 Test Item Value Reference Range Interpretation Comments UA Mucus (test code = UA Mucus) Few /LPF N [facility] KingwoodBvlafdiATKJUNOUEC2165-36-54 04:48:55 Test Item Value Reference Range Interpretation Comments UA Sq Epi (test code = UA Sq Moderate /LPF A Epi) [facility] KingwoodJhcpnqfSETLLSNRTN1878-36-59 04:48:55 Test Item Value Reference Range Interpretation Comments Micro? (test code = Performed (04/14/2013 N Micro?) 23:48:55) [facility]woodBjkmfkxVFVQKCAUFL6047-90-23 04:48:55 Test Item Value Reference Range Interpretation Comments UA WBC (test code = UA WBC) 0-2 /HPF N [facility] KingwoodQtynnijEUEJMIIGOW3591-71-81 04:48:55 Test Item Value Reference Range Interpretation Comments UA Bacteria (test code = UA Occasional /HPF N Bacteria) [facility]woodHkpklrxBOYJDZGKDC1821-52-38 04:48:55 Test Item Value Reference Range Interpretation Comments UA Glucose (test code = UA Glucose) 500 mg/dL A [facility] KingwoodDsnqpfjBTYMKTZRFW0542-02-50 04:48:55 Test Item Value Reference Range Interpretation Comments UA Bili (test code = Negative *NA*(04/14/2013 UA Bili) 23:48:55) [facility] KingwoodIxkofjiDQZXPYIUQM5229-79-13 04:48:55 Test Item Value Reference Range Interpretation Comments UA Ketones (test code = Trace A UA Ketones) *ABN*(04/14/2013 23:48:55) [facility]woodQqmdcztGGPILRMUPZ8873-87-31 04:48:55 Test Item Value Reference Range Interpretation Comments UA Blood (test code = Negative (04/14/2013 N UA Blood) 23:48:55) [facility] KingwoodAzjanzbLVHEJDXDVV1769-96-97 04:48:55 Test Item Value Reference Range Interpretation Comments UA Urobilinogen (test code = UA 0.2 0.1-1.0 N Urobilinogen) [facility]woodQlnrajuBDUJWLZDRN9701-65-64 04:48:55 Test Item Value Reference Range Interpretation Comments UA Nitrite (test code Negative (04/14/2013 N = UA Nitrite) 23:48:55) [facility]woodWcwbqyxXDRZNAVOYR9047-96-84 04:48:55 Test Item Value Reference Range Interpretation Comments UA Leuk Est (test Negative (04/14/2013 N code = UA Leuk Est) 23:48:55) [facility]woodJjmkmeaDJBVJXIXFS5769-42-17 04:48:55 Test Item Value Reference Range Interpretation Comments UA Turbidity (test code = Clear (04/14/2013 N UA Turbidity) 23:48:55) [facility] KingwoodBudgivkPGQOAADGVR6190-14-06 04:48:55 Test Item Value Reference Range Interpretation Comments UA Color (test code = Yellow *NA*(04/14/2013 UA Color) 23:48:55) [facility] KingwoodMbxpayzHNTHHXMVIG5533-15-54 04:48:55 Test Item Value Reference Range Interpretation Comments UA pH (test code = UA pH) 7.0 1 5.0-8.0 N [facility] KingwoodDqtyxdeRDIGTWIJFS5261-70-73 04:48:55 Test Item Value Reference Range Interpretation Comments UA Spec Grav (test code = UA Spec 1.025 1 N Grav) [facility] KingwoodUtheiyhRUULNYUPZY5110-29-93 04:48:55 Test Item Value Reference Range Interpretation Comments UA Protein (test code = Trace A UA Protein) *ABN*(04/14/2013 23:48:55) [facility] KingwoodMzeqpvnGOGSOAACZR9144-55-77 04:48:55 Test Item Value Reference Range Interpretation Comments UA Franklin Yeast (test code = UA Occasional /HPF A Franklin Yeast) [facility] KingwoodWakmhqiHVPOPYJFBT9313-88-77 04:48:55 Test Item Value Reference Range Interpretation Comments UA Mucus (test code = UA Mucus) Few /LPF N [facility] KingwoodXljwtsvGDFPJFEKXD3305-94-56 04:48:55 Test Item Value Reference Range Interpretation Comments UA Sq Epi (test code = UA Sq Moderate /LPF A Epi) [facility] KingwoodLauzrldLKJBOVUBCG2703-09-03 04:48:55 Test Item Value Reference Range Interpretation Comments Micro? (test code = Performed (04/14/2013 N Micro?) 23:48:55) [facility] KingwoodYkmntzcILQNNBHJIN2853-55-19 04:48:55 Test Item Value Reference Range Interpretation Comments UA WBC (test code = UA WBC) 0-2 /HPF N [facility] KingwoodGjfkaciTZCZHNDLQH8131-64-33 04:48:55 Test Item Value Reference Range Interpretation Comments UA Bacteria (test code = UA Occasional /HPF N Bacteria) [facility]woodScbvvdfUZWXFUUCZR9476-09-98 04:48:55 Test Item Value Reference Range Interpretation Comments UA Glucose (test code = UA Glucose) 500 mg/dL A [facility] KingwoodAqhralsWEEHAHEUEB4460-97-99 04:48:55 Test Item Value Reference Range Interpretation Comments UA Bili (test code = Negative *NA*(04/14/2013 UA Bili) 23:48:55) [facility] KingwoodKfuundjOHADCHDQMS7283-57-41 04:48:55 Test Item Value Reference Range Interpretation Comments UA Ketones (test code = Trace A UA Ketones) *ABN*(04/14/2013 23:48:55) [facility] KingwoodShansnrGNDWBQQWAI3075-95-33 04:48:55 Test Item Value Reference Range Interpretation Comments UA Blood (test code = Negative (04/14/2013 N UA Blood) 23:48:55) [facility] KingwoodHlautrlLYUIBAMOCQ6973-46-77 04:48:55 Test Item Value Reference Range Interpretation Comments UA Urobilinogen (test code = UA 0.2 0.1-1.0 N Urobilinogen) [facility]woodHrvyqueWUNKVIOXWU7498-75-65 04:48:55 Test Item Value Reference Range Interpretation Comments UA Nitrite (test code Negative (04/14/2013 N = UA Nitrite) 23:48:55) [facility] KingwoodDipugunPKSJNVJHKP1178-67-95 04:48:55 Test Item Value Reference Range Interpretation Comments UA Leuk Est (test Negative (04/14/2013 N code = UA Leuk Est) 23:48:55) [facility]woodHwuqkidLYIGDVEJYJ8434-32-81 04:48:55 Test Item Value Reference Range Interpretation Comments UA Turbidity (test code = Clear (04/14/2013 N UA Turbidity) 23:48:55) [facility] KingwoodVekirqtBBSBWOBWDQ1281-21-97 04:48:55 Test Item Value Reference Range Interpretation Comments UA Color (test code = Yellow *NA*(04/14/2013 UA Color) 23:48:55) [facility] KingwoodCebckgjAIHNSBEZTI6648-57-52 04:48:55 Test Item Value Reference Range Interpretation Comments UA pH (test code = UA pH) 7.0 1 5.0-8.0 N [facility] KingwoodIiqfgiyZKDIHDJLSY6378-17-38 04:48:55 Test Item Value Reference Range Interpretation Comments UA Spec Grav (test code = UA Spec 1.025 1 N Grav) [facility]woodXfcfvzcHRCZLIOIZD1165-69-28 04:48:55 Test Item Value Reference Range Interpretation Comments UA Protein (test code = Trace A UA Protein) *ABN*(04/14/2013 23:48:55) [facility]woodHsglgctEISVOMXWYR5503-31-36 04:48:55 Test Item Value Reference Range Interpretation Comments UA Franklin Yeast (test code = UA Occasional /HPF A Franklin Yeast) [facility] KingwoodNmiijutOMYOGHBFVX2249-78-08 04:48:55 Test Item Value Reference Range Interpretation Comments UA Mucus (test code = UA Mucus) Few /LPF N [facility] KingwoodZimvmnnVEKFYBBYDS7939-69-38 04:48:55 Test Item Value Reference Range Interpretation Comments UA Sq Epi (test code = UA Sq Moderate /LPF A Epi) [facility] KingwoodNrciumpJEJOVRHRHJ8118-93-14 04:48:55 Test Item Value Reference Range Interpretation Comments Micro? (test code = Performed (04/14/2013 N Micro?) 23:48:55) [facility] KingwoodLdtpqwuBYZFMMYJDW4226-91-18 04:48:55 Test Item Value Reference Range Interpretation Comments UA WBC (test code = UA WBC) 0-2 /HPF N [facility] KingwoodYacxeuwTGCSOSYMUK5230-72-17 04:48:55 Test Item Value Reference Range Interpretation Comments UA Bacteria (test code = UA Occasional /HPF N Bacteria) [facility] KingwoodClilhklTMRJGCIUGZ6814-78-40 04:48:55 Test Item Value Reference Range Interpretation Comments UA Glucose (test code = UA Glucose) 500 mg/dL A [facility] KingwoodTuvkjkiLIJHGUXHLH0844-04-50 04:48:55 Test Item Value Reference Range Interpretation Comments UA Bili (test code = Negative *NA*(04/14/2013 UA Bili) 23:48:55) [facility]woodNgqkxdgOHLGBPKXLP5645-46-14 04:48:55 Test Item Value Reference Range Interpretation Comments UA Ketones (test code = Trace A UA Ketones) *ABN*(04/14/2013 23:48:55) [facility] KingwoodFrzofylBTVRECFHKD8097-23-82 04:48:55 Test Item Value Reference Range Interpretation Comments UA Blood (test code = Negative (04/14/2013 N UA Blood) 23:48:55) [facility] KingwoodDvdayuhGAUGGSYOIW8043-19-18 04:48:55 Test Item Value Reference Range Interpretation Comments UA Urobilinogen (test code = UA 0.2 0.1-1.0 N Urobilinogen) [facility] KingwoodPsfckdaPRCUCEONMD1707-41-19 04:48:55 Test Item Value Reference Range Interpretation Comments UA Nitrite (test code Negative (04/14/2013 N = UA Nitrite) 23:48:55) [facility] KingwoodSkndefwWSMOAYGIXD2672-19-56 04:48:55 Test Item Value Reference Range Interpretation Comments UA Leuk Est (test Negative (04/14/2013 N code = UA Leuk Est) 23:48:55) [facility]woodOdcclpkSHYRCQSKQX6600-74-56 04:48:55 Test Item Value Reference Range Interpretation Comments UA Turbidity (test code = Clear (04/14/2013 N UA Turbidity) 23:48:55) [facility]woodOdgjqlwAIRJSKXOSW9142-81-52 04:48:55 Test Item Value Reference Range Interpretation Comments UA Color (test code = Yellow *NA*(04/14/2013 UA Color) 23:48:55) [facility] KingwoodDnmqmocOKAUDRVJDA4238-96-70 04:48:55 Test Item Value Reference Range Interpretation Comments UA pH (test code = UA pH) 7.0 1 5.0-8.0 N [facility] KingwoodIdkrsahKPRYZMSVTF7868-33-84 04:48:55 Test Item Value Reference Range Interpretation Comments UA Spec Grav (test code = UA Spec 1.025 1 N Grav) [facility] KingwoodHsoeywrVEBBZLHMTK5337-85-93 04:48:55 Test Item Value Reference Range Interpretation Comments UA Protein (test code = Trace A UA Protein) *ABN*(04/14/2013 23:48:55) [facility]wbobciXMDZRQLLS1845-74-68 04:28:00 Test Item Value Reference Range Interpretation Comments S Preg (test code = S Negative *NA*(04/14/2013 Preg) 23:28:00) [facility] HospitalSqklboxUMCSZVIDQ7976-13-58 04:28:00 Test Item Value Reference Range Interpretation Comments Lipase Lvl (test code = Lipase Lvl) 233 73-393 N [facility] HospitalOailcwbDJHXDCHPQ1009-21-27 04:28:00 Test Item Value Reference Range Interpretation Comments Globulin (test code = Globulin) 4.1 2.0-4.0 H [facility] HospitalJrgmzdyZRLBPMLLA7936-57-93 04:28:00 Test Item Value Reference Range Interpretation Comments AGAP (test code = AGAP) 10.5 10.0-20.0 N [facility] HospitalYkqlzspAZGWUTWKT3954-45-36 04:28:00 Test Item Value Reference Range Interpretation Comments B/C Ratio (test code = B/C Ratio) 6 6-25 N [facility] HospitalGobgvtoXPVQTALHF4388-22-53 04:28:00 Test Item Value Reference Range Interpretation Comments A/G Ratio (test code = A/G Ratio) 0.7 0.7-1.6 N [facility] HospitalBiqhufkMQUYRFOJG2304-11-12 04:28:00 Test Item Value Reference Range Interpretation Comments eGFR (test code = eGFR) 130 [facility] HospitalFidkslgKCZEGWDJM3562-78-62 04:28:00 Test Item Value Reference Range Interpretation Comments Albumin Lvl (test code = Albumin Lvl) 2.9 3.5-5.0 L [facility] HospitalXogokgrSUNQAOYVL9343-10-96 04:28:00 Test Item Value Reference Range Interpretation Comments ASPARTATE TRANSAMINASE 20 See_Comment N [Aut omated message] (test code = ASPARTATE The s ystem which TRANSAMINASE) generated this result transmitted ref erence range: <=37. Th e reference range was not used to interpr et this result as normal/abnormal . [facility] HospitalAhcozqdRNNWKAZBO4886-01-18 04:28:00 Test Item Value Reference Range Interpretation Comments Bili Total (test code = Bili Total) 0.5 0.2-1.3 N [facility] HospitalXeagtnxCKETNAGKF0639-35-53 04:28:00 Test Item Value Reference Range Interpretation Comments Alk Phos (test code = Alk Phos) 89 39-136 N [facility] HospitalQmzwpqqPCSTTNWVH4450-15-60 04:28:00 Test Item Value Reference Range Interpretation Comments ALANINE AMINOTRANSFERASE 11 See_Comment N [A utomated message] (test code = ALANINE The sys tem which AMINOTRANSFERASE) generated this result transmitted ref erence range: <=65. Th e reference range was not used to int erpret this result as normal/abnormal . [facility] HospitalVonnyzyNZMKCRLGG8345-46-45 04:28:00 Test Item Value Reference Range Interpretation Comments Creatinine Lvl (test code = Creatinine 0.5 0.5-1.4 N Lvl) [facility] HospitalQeunqjoTEWNJZLGL1141-66-47 04:28:00 Test Item Value Reference Range Interpretation Comments BUN (test code = BUN) 3 7-22 [facility]YvrvxeiXPEPFUZDA3313-45-70 04:28:00 Test Item Value Reference Range Interpretation Comments Glucose Lvl (test code = Glucose Lvl) 255 70-99 H [facility] HospitalWqwktopXVOSMGVWF3517-63-76 04:28:00 Test Item Value Reference Range Interpretation Comments Total Protein (test code = Total 7.0 6.4-8.4 N Protein) [facility]GstnpbmBADIHELOE0368-70-23 04:28:00 Test Item Value Reference Range Interpretation Comments Calcium Lvl (test code = Calcium Lvl) 8.7 8.5-10.5 N [facility] HospitalDbvqsjoSKLZENYLC9923-50-13 04:28:00 Test Item Value Reference Range Interpretation Comments CO2 (test code = CO2) 29 24-32 N [facility] HospitalNndeynjCISCNTWGK2176-39-28 04:28:00 Test Item Value Reference Range Interpretation Comments Chloride Lvl (test code = Chloride Lvl) 104 95-109 N [facility] HospitalHqvgbnsTRAZHWMBE2417-86-47 04:28:00 Test Item Value Reference Range Interpretation Comments Potassium Lvl (test code = Potassium 3.5 3.5-5.1 N Lvl) [facility]QzwiolvLPBZEPUSJ7124-82-47 04:28:00 Test Item Value Reference Range Interpretation Comments Sodium Lvl (test code = Sodium Lvl) 140 135-145 N [facility]WkywzpnMMOIYGBNDS0014-46-56 04:28:00 Test Item Value Reference Range Interpretation Comments PROTIME (test code = PROTIME) 12.1 s 12.0-14.7 N [facility] CenterWiiahrkAGNAZJWMRW0505-84-58 04:28:00 Test Item Value Reference Range Interpretation Comments aPTT (test code = aPTT) 39.0 s 22.9-35.8 H [facility] CenterTgrdqesFMGSSJBOTV3167-19-81 04:28:00 Test Item Value Reference Range Interpretation Comments INR (test code = INR) 0.90 0.85-1.17 N [facility] CenterYdtlmiaKYZPYLGSER0478-95-73 04:28:00 Test Item Value Reference Range Interpretation Comments MCH (test code = MCH) 29.4 pg 27.0-31.0 N [facility] CenterTzbfsrbWZNYBWBUVQ6033-55-59 04:28:00 Test Item Value Reference Range Interpretation Comments MCV (test code = MCV) 86.1 81.0-99.0 N [facility] CenterDathoboKIEHZCRPFI5369-23-40 04:28:00 Test Item Value Reference Range Interpretation Comments Hct (test code = Hct) 29.4 36.0-48.0 L [facility] CenterCdqrwmvRANJIDTRNQ4021-59-66 04:28:00 Test Item Value Reference Range Interpretation Comments RDW (test code = RDW) 14.0 11.5-14.5 N [facility] CenterJqgdbluNFLBPUUILW8873-42-45 04:28:00 Test Item Value Reference Range Interpretation Comments WBC X 10x3 (test code = WBC X 10x3) 6.2 3.7-10.4 N [facility] CenterRjjfvojQHMFSDRQBL6297-75-17 04:28:00 Test Item Value Reference Range Interpretation Comments Platelet (test code = Platelet) 178 133-450 N [facility] CenterNqpnxcoEIHDVZAJAL3331-03-83 04:28:00 Test Item Value Reference Range Interpretation Comments MCHC (test code = MCHC) 34.1 32.0-36.0 N [facility] CenterMtcevggCAMMSVLEMI8754-59-98 04:28:00 Test Item Value Reference Range Interpretation Comments RBC X 10x6 (test code = RBC X 10x6) 3.41 4.20-5.40 L [facility] CenterHsivqxdTQWQROKDFS7014-92-70 04:28:00 Test Item Value Reference Range Interpretation Comments Hgb (test code = Hgb) 10.0 12.0-16.0 L [facility] CenterHtkanrfVFGLJXRULV5344-86-66 04:28:00 Test Item Value Reference Range Interpretation Comments MPV (test code = MPV) 10.1 7.4-10.4 N [facility] CenterTjmpahmQSODNSJQQY7551-02-14 04:28:00 Test Item Value Reference Range Interpretation Comments Segs-Bands # (test code = Segs-Bands #) 4.4 1.5-8.1 N [facility] CenterZkxswnaTRRGTNDXVX4721-80-93 04:28:00 Test Item Value Reference Range Interpretation Comments Basophils (test code = 0.7 See_Comment N [Aut omated message] The Basophils) system which ge nerated this result tra nsmitted reference range : <=1.0. The reference r leo was not used to int erpret this result as normal/abnormal . [facility] CenterNorbpnyDRVDWXUVDE9381-42-52 04:28:00 Test Item Value Reference Range Interpretation Comments Segs (test code = Segs) 70.7 45.0-75.0 N [facility] CenterHpedrwpXTHJQQHSHJ4329-58-11 04:28:00 Test Item Value Reference Range Interpretation Comments Monocytes # (test code 0.3 See_Comment N [Aut omated message] The = Monocytes #) system which generated this result tra nsmitted reference range : <=0.8. The reference r leo was not used to int erpret this result as normal/abnormal . [facility] CenterRokkopaCGHEQKGJKS9178-00-47 04:28:00 Test Item Value Reference Range Interpretation Comments Lymphocytes # (test code = Lymphocytes 1.2 1.0-5.5 N #) [facility] CenterKfnifrmBNZKRXYMIU5289-31-79 04:28:00 Test Item Value Reference Range Interpretation Comments Monocytes (test code = Monocytes) 4.5 2.0-12.0 N [facility] CenterAjbkcmiOZPFDCGSUO6920-63-91 04:28:00 Test Item Value Reference Range Interpretation Comments Eosinophils (test code = 4.1 See_Comment H [A utomated message] The Eosinophils) system which ge nerated this result tra nsmitted reference range : <=4.0. The reference r leo was not used to int erpret this result as normal/abnormal . [facility] CenterMeymdijXSMITCLTYU1144-96-64 04:28:00 Test Item Value Reference Range Interpretation Comments Lymphocytes (test code = Lymphocytes) 20.0 20.0-40.0 N [facility] CenterQpojuqhYYFIEDQPJA0872-76-74 04:28:00 Test Item Value Reference Range Interpretation Comments Basophils # (test code 0.0 See_Comment N [Aut omated message] The = Basophils #) system which generated this result tra nsmitted reference range : <=0.2. The reference r leo was not used to int erpret this result as normal/abnormal . [facility] CenterGyaramlUNLFQSXYTX0199-91-38 04:28:00 Test Item Value Reference Range Interpretation Comments Eosinophils # (test code 0.3 See_Comment N [A utomated message] The = Eosinophils #) system whic h generated this result tra nsmitted reference range : <=0.5. The reference r leo was not used to int erpret this result as normal/abnormal . [facility] HospitalYceohmkTMGEMKATP8036-40-92 04:28:00 Test Item Value Reference Range Interpretation Comments S Preg (test code = S Negative *NA*(04/14/2013 Preg) 23:28:00) [facility] HospitalCmgwzmfIJGUIPTMP8636-50-39 04:28:00 Test Item Value Reference Range Interpretation Comments Lipase Lvl (test code = Lipase Lvl) 233 73-393 N [facility] HospitalMniuozvDYLEEMFOW2954-97-22 04:28:00 Test Item Value Reference Range Interpretation Comments Globulin (test code = Globulin) 4.1 2.0-4.0 H [facility] HospitalCkfukamQQBWAFFTZ2353-49-29 04:28:00 Test Item Value Reference Range Interpretation Comments AGAP (test code = AGAP) 10.5 10.0-20.0 N [facility] HospitalOdmplsgOUWDZKUGF6476-05-79 04:28:00 Test Item Value Reference Range Interpretation Comments B/C Ratio (test code = B/C Ratio) 6 6-25 N [facility]EwlrwtgSNJPNHADM1317-39-85 04:28:00 Test Item Value Reference Range Interpretation Comments A/G Ratio (test code = A/G Ratio) 0.7 0.7-1.6 N [facility] HospitalRuekbsyRIDSJLASD5298-52-27 04:28:00 Test Item Value Reference Range Interpretation Comments eGFR (test code = eGFR) 130 [facility] HospitalDiscmriZOLRUWOKS5826-31-78 04:28:00 Test Item Value Reference Range Interpretation Comments Albumin Lvl (test code = Albumin Lvl) 2.9 3.5-5.0 L [facility] HospitalAruwooxHJNABEYZR6612-81-70 04:28:00 Test Item Value Reference Range Interpretation Comments ASPARTATE TRANSAMINASE 20 See_Comment N [Aut omated message] (test code = ASPARTATE The s ystem which TRANSAMINASE) generated this result transmitted ref erence range: <=37. Th e reference range was not used to interpr et this result as normal/abnormal . [facility] CenterXoervsvJMLTBCERW4448-45-37 04:28:00 Test Item Value Reference Range Interpretation Comments Bili Total (test code = Bili Total) 0.5 0.2-1.3 N [facility] HospitalYcqlmlbYIKYTRJXK7199-55-94 04:28:00 Test Item Value Reference Range Interpretation Comments Alk Phos (test code = Alk Phos) 89 39-136 N [facility] HospitalXlonvzqCNUKQLBTP7335-89-53 04:28:00 Test Item Value Reference Range Interpretation Comments ALANINE AMINOTRANSFERASE 11 See_Comment N [A utomated message] (test code = ALANINE The sys tem which AMINOTRANSFERASE) generated this result transmitted ref erence range: <=65. Th e reference range was not used to int erpret this result as normal/abnormal . [facility] HospitalQyepqcuTUSUJFOQZ0966-58-77 04:28:00 Test Item Value Reference Range Interpretation Comments Creatinine Lvl (test code = Creatinine 0.5 0.5-1.4 N Lvl) [facility] HospitalWmahgllXIWWBUGAC5998-26-84 04:28:00 Test Item Value Reference Range Interpretation Comments BUN (test code = BUN) 3 7-22 L [facility] HospitalWkrjsdiMXXZXMNUL9894-23-41 04:28:00 Test Item Value Reference Range Interpretation Comments Glucose Lvl (test code = Glucose Lvl) 255 70-99 H [facility] HospitalKovedguELSCPWBCL2490-10-27 04:28:00 Test Item Value Reference Range Interpretation Comments Total Protein (test code = Total 7.0 6.4-8.4 N Protein) [facility] HospitalUbvbvxpZCONOEHRI9972-73-13 04:28:00 Test Item Value Reference Range Interpretation Comments Calcium Lvl (test code = Calcium Lvl) 8.7 8.5-10.5 N [facility] HospitalAuhujswGLDKGYUTI8498-74-11 04:28:00 Test Item Value Reference Range Interpretation Comments CO2 (test code = CO2) 29 24-32 N [facility] HospitalJdzatfkWKKKLHTFW3491-13-24 04:28:00 Test Item Value Reference Range Interpretation Comments Chloride Lvl (test code = Chloride Lvl) 104 95-109 N [facility] HospitalVumfwesMRFOTHYJQ3799-58-95 04:28:00 Test Item Value Reference Range Interpretation Comments Potassium Lvl (test code = Potassium 3.5 3.5-5.1 N Lvl) [facility] HospitalSnethkhYWZTNGFIA9747-53-44 04:28:00 Test Item Value Reference Range Interpretation Comments Sodium Lvl (test code = Sodium Lvl) 140 135-145 N [facility] CenterFkrrvwqTGTAKYNIGA6347-54-97 04:28:00 Test Item Value Reference Range Interpretation Comments PROTIME (test code = PROTIME) 12.1 s 12.0-14.7 N [facility] CenterQwlkhuqBBLXCJYXUU6988-82-81 04:28:00 Test Item Value Reference Range Interpretation Comments aPTT (test code = aPTT) 39.0 s 22.9-35.8 H [facility] CenterXfpjienQBWJKGYRWV8436-81-57 04:28:00 Test Item Value Reference Range Interpretation Comments INR (test code = INR) 0.90 0.85-1.17 N [facility] CenterOwfgihbWETKRISUVJ5171-26-85 04:28:00 Test Item Value Reference Range Interpretation Comments MCH (test code = MCH) 29.4 pg 27.0-31.0 N [facility] CenterVfrszgkFHHCPXTTRS5967-33-78 04:28:00 Test Item Value Reference Range Interpretation Comments MCV (test code = MCV) 86.1 81.0-99.0 N [facility] CenterYvhkvecUWZSXJCJCW4160-77-25 04:28:00 Test Item Value Reference Range Interpretation Comments Hct (test code = Hct) 29.4 36.0-48.0 L [facility] CenterOgectpjKKPCIEXZSZ4718-04-52 04:28:00 Test Item Value Reference Range Interpretation Comments RDW (test code = RDW) 14.0 11.5-14.5 N [facility] CenterSuuqvqoWBAFFIMPFF6584-53-65 04:28:00 Test Item Value Reference Range Interpretation Comments WBC X 10x3 (test code = WBC X 10x3) 6.2 3.7-10.4 N [facility] CenterNewdivnHSEMGNNFGQ3384-94-16 04:28:00 Test Item Value Reference Range Interpretation Comments Platelet (test code = Platelet) 178 133-450 N [facility] CenterHfdimepFQQYEOVIIE1951-18-08 04:28:00 Test Item Value Reference Range Interpretation Comments MCHC (test code = MCHC) 34.1 32.0-36.0 N [facility] CenterLgefyqoNUIKIBWCTP8722-75-22 04:28:00 Test Item Value Reference Range Interpretation Comments RBC X 10x6 (test code = RBC X 10x6) 3.41 4.20-5.40 L [facility] CenterJehrxjsSHSOEOUDFK4114-60-74 04:28:00 Test Item Value Reference Range Interpretation Comments Hgb (test code = Hgb) 10.0 12.0-16.0 L [facility] CenterFagfbqmWLSBJSRIVU6823-98-51 04:28:00 Test Item Value Reference Range Interpretation Comments MPV (test code = MPV) 10.1 7.4-10.4 N [facility] CenterKtdhcnmEPNRKCPOXL2176-56-59 04:28:00 Test Item Value Reference Range Interpretation Comments Segs-Bands # (test code = Segs-Bands #) 4.4 1.5-8.1 N [facility] CenterXvnrhieEJDTGLAUHP1586-07-08 04:28:00 Test Item Value Reference Range Interpretation Comments Basophils (test code = 0.7 See_Comment N [Aut omated message] The Basophils) system which ge nerated this result tra nsmitted reference range : <=1.0. The reference r leo was not used to int erpret this result as normal/abnormal . [facility] CenterPheewfoNLVZSQYLMU6980-31-28 04:28:00 Test Item Value Reference Range Interpretation Comments Segs (test code = Segs) 70.7 45.0-75.0 N [facility] CenterXwxrkrdCXMNVSGHLQ5741-96-33 04:28:00 Test Item Value Reference Range Interpretation Comments Monocytes # (test code 0.3 See_Comment N [Aut omated message] The = Monocytes #) system which generated this result tra nsmitted reference range : <=0.8. The reference r leo was not used to int erpret this result as normal/abnormal . [facility] CenterUfyxylaDKDOYJRCJR0159-94-14 04:28:00 Test Item Value Reference Range Interpretation Comments Lymphocytes # (test code = Lymphocytes 1.2 1.0-5.5 N #) [facility] CenterJefxoizSKOSWDVVRC6226-70-64 04:28:00 Test Item Value Reference Range Interpretation Comments Monocytes (test code = Monocytes) 4.5 2.0-12.0 N [facility] CenterDmxgqyoYMBHQYJQQI9204-28-19 04:28:00 Test Item Value Reference Range Interpretation Comments Eosinophils (test code = 4.1 See_Comment H [A utomated message] The Eosinophils) system which ge nerated this result tra nsmitted reference range : <=4.0. The reference r leo was not used to int erpret this result as normal/abnormal . [facility] CenterTogrlhgIPSGBFIYAR4036-93-94 04:28:00 Test Item Value Reference Range Interpretation Comments Lymphocytes (test code = Lymphocytes) 20.0 20.0-40.0 N [facility] CenterWbxevrbILAXYONCKE9902-86-11 04:28:00 Test Item Value Reference Range Interpretation Comments Basophils # (test code 0.0 See_Comment N [Aut omated message] The = Basophils #) system which generated this result tra nsmitted reference range : <=0.2. The reference r leo was not used to int erpret this result as normal/abnormal . [facility] CenterCxvcdpwCIZEGXVWIB8603-39-41 04:28:00 Test Item Value Reference Range Interpretation Comments Eosinophils # (test code 0.3 See_Comment N [A utomated message] The = Eosinophils #) system whic h generated this result tra nsmitted reference range : <=0.5. The reference r leo was not used to int erpret this result as normal/abnormal . [facility] HospitalZegbvttSEELGZJRA8487-84-13 04:28:00 Test Item Value Reference Range Interpretation Comments S Preg (test code = S Negative *NA*(04/14/2013 Preg) 23:28:00) [facility] HospitalRiymfykFUJMDHUZQ0287-26-87 04:28:00 Test Item Value Reference Range Interpretation Comments Lipase Lvl (test code = Lipase Lvl) 233 73-393 N [facility] HospitalEeqbqvrELFXWNHXS2432-23-22 04:28:00 Test Item Value Reference Range Interpretation Comments Globulin (test code = Globulin) 4.1 2.0-4.0 H [facility] HospitalEqttjnlTGSWRZUEZ3985-67-54 04:28:00 Test Item Value Reference Range Interpretation Comments AGAP (test code = AGAP) 10.5 10.0-20.0 N [facility] HospitalPfmcuczGRIUSBCVL4592-31-28 04:28:00 Test Item Value Reference Range Interpretation Comments B/C Ratio (test code = B/C Ratio) 6 6-25 N [facility] HospitalYmzfhwkJIJUQEBZL9029-88-89 04:28:00 Test Item Value Reference Range Interpretation Comments A/G Ratio (test code = A/G Ratio) 0.7 0.7-1.6 N [facility] HospitalGyrtbtjZEIRJVVLN4179-66-98 04:28:00 Test Item Value Reference Range Interpretation Comments eGFR (test code = eGFR) 130 [facility] HospitalGvomoypNKNHIAXRU6210-97-67 04:28:00 Test Item Value Reference Range Interpretation Comments Albumin Lvl (test code = Albumin Lvl) 2.9 3.5-5.0 L [facility] HospitalNhofanwIDUAUQVEJ6716-53-24 04:28:00 Test Item Value Reference Range Interpretation Comments ASPARTATE TRANSAMINASE 20 See_Comment N [Aut omated message] (test code = ASPARTATE The s ystem which TRANSAMINASE) generated this result transmitted ref erence range: <=37. Th e reference range was not used to interpr et this result as normal/abnormal . [facility] HospitalBotgcchXKJDNPZQM6313-06-72 04:28:00 Test Item Value Reference Range Interpretation Comments Bili Total (test code = Bili Total) 0.5 0.2-1.3 N [facility] HospitalHduefcoFWLBQDYSY9741-41-80 04:28:00 Test Item Value Reference Range Interpretation Comments Alk Phos (test code = Alk Phos) 89 39-136 N [facility] HospitalGgoxqahLFIKAWSHU0588-60-84 04:28:00 Test Item Value Reference Range Interpretation Comments ALANINE AMINOTRANSFERASE 11 See_Comment N [A utomated message] (test code = ALANINE The sys tem which AMINOTRANSFERASE) generated this result transmitted ref erence range: <=65. Th e reference range was not used to int erpret this result as normal/abnormal . [facility] HospitalJsssnemPJXWMFJRN4883-64-56 04:28:00 Test Item Value Reference Range Interpretation Comments Creatinine Lvl (test code = Creatinine 0.5 0.5-1.4 N Lvl) [facility] HospitalSlmzdykRRZZOEKTM7959-65-18 04:28:00 Test Item Value Reference Range Interpretation Comments BUN (test code = BUN) 3 7-22 L [facility] HospitalBpqgzimGBVVVYFWY2926-00-57 04:28:00 Test Item Value Reference Range Interpretation Comments Glucose Lvl (test code = Glucose Lvl) 255 70-99 H [facility] HospitalMlqqmikCBKFXTINR9988-41-18 04:28:00 Test Item Value Reference Range Interpretation Comments Total Protein (test code = Total 7.0 6.4-8.4 N Protein) [facility] HospitalWbglpflUYKFIESIB4607-72-49 04:28:00 Test Item Value Reference Range Interpretation Comments Calcium Lvl (test code = Calcium Lvl) 8.7 8.5-10.5 N [facility] HospitalYuyjyjlJCZJEWGGD0773-07-40 04:28:00 Test Item Value Reference Range Interpretation Comments CO2 (test code = CO2) 29 24-32 N [facility] HospitalZscfhkvLRSDVVDVL1031-17-61 04:28:00 Test Item Value Reference Range Interpretation Comments Chloride Lvl (test code = Chloride Lvl) 104 95-109 N [facility] HospitalAsajyhqAQUGPLVRZ4859-86-48 04:28:00 Test Item Value Reference Range Interpretation Comments Potassium Lvl (test code = Potassium 3.5 3.5-5.1 N Lvl) [facility] HospitalRujsoabPSNSFYQKT7487-64-10 04:28:00 Test Item Value Reference Range Interpretation Comments Sodium Lvl (test code = Sodium Lvl) 140 135-145 N [facility] CenterDgootwfAGGJQGWNBR9737-87-95 04:28:00 Test Item Value Reference Range Interpretation Comments PROTIME (test code = PROTIME) 12.1 s 12.0-14.7 N [facility] CenterAgogyviNQRPZTKQIC6847-11-14 04:28:00 Test Item Value Reference Range Interpretation Comments aPTT (test code = aPTT) 39.0 s 22.9-35.8 H [facility] CenterAxsgxmzEUTIDXHLZL3275-49-74 04:28:00 Test Item Value Reference Range Interpretation Comments INR (test code = INR) 0.90 0.85-1.17 N [facility] CenterYcbiphqUOAFTPFRQX1731-80-01 04:28:00 Test Item Value Reference Range Interpretation Comments MCH (test code = MCH) 29.4 pg 27.0-31.0 N [facility] CenterHfpirjlIMBADDTHQI0051-32-51 04:28:00 Test Item Value Reference Range Interpretation Comments MCV (test code = MCV) 86.1 81.0-99.0 N [facility] CenterGmxefqnNMCJLQLJOV4025-13-09 04:28:00 Test Item Value Reference Range Interpretation Comments Hct (test code = Hct) 29.4 36.0-48.0 L [facility] CenterZgjvsfgYPBBAWMJKI6709-88-85 04:28:00 Test Item Value Reference Range Interpretation Comments RDW (test code = RDW) 14.0 11.5-14.5 N [facility] CenterQsoucxuWGKFYMZNKL6177-62-83 04:28:00 Test Item Value Reference Range Interpretation Comments WBC X 10x3 (test code = WBC X 10x3) 6.2 3.7-10.4 N [facility] CenterTdndswnQKJOIDBJUD2614-12-54 04:28:00 Test Item Value Reference Range Interpretation Comments Platelet (test code = Platelet) 178 133-450 N [facility] CenterLqvbkqdRNLRUCIQZH1018-09-81 04:28:00 Test Item Value Reference Range Interpretation Comments MCHC (test code = MCHC) 34.1 32.0-36.0 N [facility] CenterPfmdzmnSMQNODUEFJ3409-32-83 04:28:00 Test Item Value Reference Range Interpretation Comments RBC X 10x6 (test code = RBC X 10x6) 3.41 4.20-5.40 L [facility] CenterFkliriaKMXTFWKIKB1945-60-46 04:28:00 Test Item Value Reference Range Interpretation Comments Hgb (test code = Hgb) 10.0 12.0-16.0 L [facility] CenterXjjarilZKNQRNOFEX1173-80-25 04:28:00 Test Item Value Reference Range Interpretation Comments MPV (test code = MPV) 10.1 7.4-10.4 N [facility] CenterYbsgngnUTQDDUYFRQ8158-64-71 04:28:00 Test Item Value Reference Range Interpretation Comments Segs-Bands # (test code = Segs-Bands #) 4.4 1.5-8.1 N [facility] CenterXixxmxeRNWLHKOVCZ3626-18-92 04:28:00 Test Item Value Reference Range Interpretation Comments Basophils (test code = 0.7 See_Comment N [Aut omated message] The Basophils) system which ge nerated this result tra nsmitted reference range : <=1.0. The reference r leo was not used to int erpret this result as normal/abnormal . [facility] CenterImtwozaOWFLMSUAYD2010-71-05 04:28:00 Test Item Value Reference Range Interpretation Comments Segs (test code = Segs) 70.7 45.0-75.0 N [facility] CenterVrextjbMNJYXZINEP4616-92-37 04:28:00 Test Item Value Reference Range Interpretation Comments Monocytes # (test code 0.3 See_Comment N [Aut omated message] The = Monocytes #) system which generated this result tra nsmitted reference range : <=0.8. The reference r leo was not used to int erpret this result as normal/abnormal . [facility] CenterNxbvypwPGBTZELPZK3954-94-43 04:28:00 Test Item Value Reference Range Interpretation Comments Lymphocytes # (test code = Lymphocytes 1.2 1.0-5.5 N #) [facility] CenterSotfofbNOMCCZPAJI1337-16-16 04:28:00 Test Item Value Reference Range Interpretation Comments Monocytes (test code = Monocytes) 4.5 2.0-12.0 N [facility] CenterXigxuyyVMQNLFVUQH3072-99-28 04:28:00 Test Item Value Reference Range Interpretation Comments Eosinophils (test code = 4.1 See_Comment H [A utomated message] The Eosinophils) system which ge nerated this result tra nsmitted reference range : <=4.0. The reference r leo was not used to int erpret this result as normal/abnormal . [facility] CenterNjilsyiOBRTEFDQKT2510-88-95 04:28:00 Test Item Value Reference Range Interpretation Comments Lymphocytes (test code = Lymphocytes) 20.0 20.0-40.0 N [facility] CenterRajvoklEATJPLFZCJ4902-49-31 04:28:00 Test Item Value Reference Range Interpretation Comments Basophils # (test code 0.0 See_Comment N [Aut omated message] The = Basophils #) system which generated this result tra nsmitted reference range : <=0.2. The reference r leo was not used to int erpret this result as normal/abnormal . [facility] CenterZkroilbDOXTZEIUMQ1835-79-54 04:28:00 Test Item Value Reference Range Interpretation Comments Eosinophils # (test code 0.3 See_Comment N [A utomated message] The = Eosinophils #) system whic h generated this result tra nsmitted reference range : <=0.5. The reference r leo was not used to int erpret this result as normal/abnormal . [facility] HospitalOthnldmGVFTWSFCM9890-84-22 04:28:00 Test Item Value Reference Range Interpretation Comments S Preg (test code = S Negative *NA*(04/14/2013 Preg) 23:28:00) [facility] HospitalUuldjgzOBQXVIOQB9401-52-28 04:28:00 Test Item Value Reference Range Interpretation Comments Lipase Lvl (test code = Lipase Lvl) 233 73-393 N [facility] HospitalJimgpygJZPWTGRAW0300-50-34 04:28:00 Test Item Value Reference Range Interpretation Comments Globulin (test code = Globulin) 4.1 2.0-4.0 H [facility] HospitalUmokeanBKEKNSUSG4810-53-87 04:28:00 Test Item Value Reference Range Interpretation Comments AGAP (test code = AGAP) 10.5 10.0-20.0 N [facility] HospitalRyyxvrbLNGAGHUDX3835-67-65 04:28:00 Test Item Value Reference Range Interpretation Comments B/C Ratio (test code = B/C Ratio) 6 6-25 N [facility] HospitalAeyakyeWLGBZJMEK6557-92-51 04:28:00 Test Item Value Reference Range Interpretation Comments A/G Ratio (test code = A/G Ratio) 0.7 0.7-1.6 [facility]ZvezavfCCBMMDZBR1854-13-49 04:28:00 Test Item Value Reference Range Interpretation Comments eGFR (test code = eGFR) 130 [facility]NjdwohuHSINJKRFJ4813-50-42 04:28:00 Test Item Value Reference Range Interpretation Comments Albumin Lvl (test code = Albumin Lvl) 2.9 3.5-5.0 L [facility] HospitalDwupxplXOHZVVXOB5020-38-54 04:28:00 Test Item Value Reference Range Interpretation Comments ASPARTATE TRANSAMINASE 20 See_Comment N [Aut omated message] (test code = ASPARTATE The s ystem which TRANSAMINASE) generated this result transmitted ref erence range: <=37. Th e reference range was not used to interpr et this result as normal/abnormal . [facility] HospitalUxxyvgoNSKLOVIVD0772-06-50 04:28:00 Test Item Value Reference Range Interpretation Comments Bili Total (test code = Bili Total) 0.5 0.2-1.3 N [facility] HospitalUwawrptTWCPIWTNN4244-28-00 04:28:00 Test Item Value Reference Range Interpretation Comments Alk Phos (test code = Alk Phos) 89 39-136 N [facility] HospitalRvfyflpWGGXQPZQG3455-26-80 04:28:00 Test Item Value Reference Range Interpretation Comments ALANINE AMINOTRANSFERASE 11 See_Comment N [A utomated message] (test code = ALANINE The sys tem which AMINOTRANSFERASE) generated this result transmitted ref erence range: <=65. Th e reference range was not used to int erpret this result as normal/abnormal . [facility] HospitalBlwcfccEOWFRMEDD4762-41-43 04:28:00 Test Item Value Reference Range Interpretation Comments Creatinine Lvl (test code = Creatinine 0.5 0.5-1.4 N Lvl) [facility] HospitalWqbzcbrTENEATFZG6561-52-29 04:28:00 Test Item Value Reference Range Interpretation Comments BUN (test code = BUN) 3 7-22 L [facility] HospitalXqeehatHLBJRRKZZ4529-84-72 04:28:00 Test Item Value Reference Range Interpretation Comments Glucose Lvl (test code = Glucose Lvl) 255 70-99 H [facility] HospitalUyhisqoPZJCQCTDS6618-22-44 04:28:00 Test Item Value Reference Range Interpretation Comments Total Protein (test code = Total 7.0 6.4-8.4 N Protein) [facility] HospitalOiarxwwCKTMDUKBD6908-08-47 04:28:00 Test Item Value Reference Range Interpretation Comments Calcium Lvl (test code = Calcium Lvl) 8.7 8.5-10.5 N [facility] HospitalVbvyksmJYAUDEWBL5409-53-75 04:28:00 Test Item Value Reference Range Interpretation Comments CO2 (test code = CO2) 29 24-32 N [facility] HospitalSgxvutyCZGUPKTQW7344-52-29 04:28:00 Test Item Value Reference Range Interpretation Comments Chloride Lvl (test code = Chloride Lvl) 104 95-109 N [facility] HospitalNuclnnzKKKIIRQLX2825-22-77 04:28:00 Test Item Value Reference Range Interpretation Comments Potassium Lvl (test code = Potassium 3.5 3.5-5.1 N Lvl) [facility] HospitalNdiwksrCMTGJZYQM2611-40-36 04:28:00 Test Item Value Reference Range Interpretation Comments Sodium Lvl (test code = Sodium Lvl) 140 135-145 N [facility]TvulsozAJDWZXULJN2304-48-61 04:28:00 Test Item Value Reference Range Interpretation Comments PROTIME (test code = PROTIME) 12.1 s 12.0-14.7 N [facility] CenterFkeibmzKGZBULHFDC9678-41-34 04:28:00 Test Item Value Reference Range Interpretation Comments aPTT (test code = aPTT) 39.0 s 22.9-35.8 H [facility] CenterFoaemimZVYUREJWZW8900-83-21 04:28:00 Test Item Value Reference Range Interpretation Comments INR (test code = INR) 0.90 0.85-1.17 N [facility] CenterAkozeddMWOIOCPQSU5006-98-31 04:28:00 Test Item Value Reference Range Interpretation Comments MCH (test code = MCH) 29.4 pg 27.0-31.0 N [facility] CenterQtxrzowUZUACHMZPP6370-63-90 04:28:00 Test Item Value Reference Range Interpretation Comments MCV (test code = MCV) 86.1 81.0-99.0 N [facility] CenterPbockcgRUSSXQLLKV6052-92-64 04:28:00 Test Item Value Reference Range Interpretation Comments Hct (test code = Hct) 29.4 36.0-48.0 L [facility] CenterMgiswgoKYVOYTBUJL7014-34-49 04:28:00 Test Item Value Reference Range Interpretation Comments RDW (test code = RDW) 14.0 11.5-14.5 N [facility] CenterKitrjwaEYCMDCWLHF4563-63-52 04:28:00 Test Item Value Reference Range Interpretation Comments WBC X 10x3 (test code = WBC X 10x3) 6.2 3.7-10.4 N [facility] CenterOdicdulIAVODZLEXS4004-47-41 04:28:00 Test Item Value Reference Range Interpretation Comments Platelet (test code = Platelet) 178 133-450 N [facility] CenterDefcydaIBGSRCZFXI3162-35-00 04:28:00 Test Item Value Reference Range Interpretation Comments MCHC (test code = MCHC) 34.1 32.0-36.0 N [facility] CenterYdtcamjIIVKFVFFLM0367-03-26 04:28:00 Test Item Value Reference Range Interpretation Comments RBC X 10x6 (test code = RBC X 10x6) 3.41 4.20-5.40 L [facility] CenterSjzmaamRUBLVISSZB8902-81-08 04:28:00 Test Item Value Reference Range Interpretation Comments Hgb (test code = Hgb) 10.0 12.0-16.0 L [facility] CenterJpxwsxhQZCSOGNVWZ0889-66-06 04:28:00 Test Item Value Reference Range Interpretation Comments MPV (test code = MPV) 10.1 7.4-10.4 N [facility] CenterIbmfdpqSERKYULERJ0213-18-41 04:28:00 Test Item Value Reference Range Interpretation Comments Segs-Bands # (test code = Segs-Bands #) 4.4 1.5-8.1 N [facility] CenterWdlzrrtHMQBRBHGPS0915-11-95 04:28:00 Test Item Value Reference Range Interpretation Comments Basophils (test code = 0.7 See_Comment N [Aut omated message] The Basophils) system which ge nerated this result tra nsmitted reference range : <=1.0. The reference r leo was not used to int erpret this result as normal/abnormal . [facility] CenterOxvkdirQXAZPYXYXA5105-75-75 04:28:00 Test Item Value Reference Range Interpretation Comments Segs (test code = Segs) 70.7 45.0-75.0 N [facility] CenterSwgccglZKYVKNNGTW5025-16-50 04:28:00 Test Item Value Reference Range Interpretation Comments Monocytes # (test code 0.3 See_Comment N [Aut omated message] The = Monocytes #) system which generated this result tra nsmitted reference range : <=0.8. The reference r leo was not used to int erpret this result as normal/abnormal . [facility] CenterRgvptexDRRPXZRQNQ3570-84-69 04:28:00 Test Item Value Reference Range Interpretation Comments Lymphocytes # (test code = Lymphocytes 1.2 1.0-5.5 N #) [facility] CenterZvyqnpxJIWRSXNBXG6865-32-96 04:28:00 Test Item Value Reference Range Interpretation Comments Monocytes (test code = Monocytes) 4.5 2.0-12.0 N [facility] CenterHmdmfxhRGCBFUTBEY7161-53-30 04:28:00 Test Item Value Reference Range Interpretation Comments Eosinophils (test code = 4.1 See_Comment H [A utomated message] The Eosinophils) system which ge nerated this result tra nsmitted reference range : <=4.0. The reference r leo was not used to int erpret this result as normal/abnormal . [facility] CenterCxjpdikJXWYBFXSOZ6775-07-45 04:28:00 Test Item Value Reference Range Interpretation Comments Lymphocytes (test code = Lymphocytes) 20.0 20.0-40.0 N [facility] CenterPzzrohdUWORFBRBKA0356-24-59 04:28:00 Test Item Value Reference Range Interpretation Comments Basophils # (test code 0.0 See_Comment N [Aut omated message] The = Basophils #) system which generated this result tra nsmitted reference range : <=0.2. The reference r leo was not used to int erpret this result as normal/abnormal . [facility] CenterYjycohlLBQNJHUVNU3062-36-97 04:28:00 Test Item Value Reference Range Interpretation Comments Eosinophils # (test code 0.3 See_Comment N [A utomated message] The = Eosinophils #) system whic h generated this result tra nsmitted reference range : <=0.5. The reference r leo was not used to int erpret this result as normal/abnormal . [facility] HospitalGvgsgjbJPOBYIOLF4204-26-01 04:28:00 Test Item Value Reference Range Interpretation Comments S Preg (test code = S Negative *NA*(04/14/2013 Preg) 23:28:00) [facility] HospitalVgnkpzfRCHBTJUIV2275-40-10 04:28:00 Test Item Value Reference Range Interpretation Comments Lipase Lvl (test code = Lipase Lvl) 233 73-393 N [facility] HospitalBroehbbRUZUQYZQU1237-84-17 04:28:00 Test Item Value Reference Range Interpretation Comments Globulin (test code = Globulin) 4.1 2.0-4.0 H [facility] HospitalGztetxjNQALQATKF5237-72-04 04:28:00 Test Item Value Reference Range Interpretation Comments AGAP (test code = AGAP) 10.5 10.0-20.0 N [facility] HospitalRuwlmmvHDJLBQPGA0302-87-79 04:28:00 Test Item Value Reference Range Interpretation Comments B/C Ratio (test code = B/C Ratio) 6 6-25 N [facility] HospitalCpdobkfMRBQWKYHF4306-83-44 04:28:00 Test Item Value Reference Range Interpretation Comments A/G Ratio (test code = A/G Ratio) 0.7 0.7-1.6 N [facility] HospitalKfpboghXQGNVHZPL9088-44-33 04:28:00 Test Item Value Reference Range Interpretation Comments eGFR (test code = eGFR) 130 [facility] HospitalXxzpqmkABJFQLKDK4420-49-71 04:28:00 Test Item Value Reference Range Interpretation Comments Albumin Lvl (test code = Albumin Lvl) 2.9 3.5-5.0 L [facility] HospitalQckeahxOTKWDJUPW8746-19-53 04:28:00 Test Item Value Reference Range Interpretation Comments ASPARTATE TRANSAMINASE 20 See_Comment N [Aut omated message] (test code = ASPARTATE The s ystem which TRANSAMINASE) generated this result transmitted ref erence range: <=37. Th e reference range was not used to interpr et this result as normal/abnormal . [facility] HospitalAffbmdxKAJVAZPWG8073-03-96 04:28:00 Test Item Value Reference Range Interpretation Comments Bili Total (test code = Bili Total) 0.5 0.2-1.3 N [facility] HospitalDpcmqpdGOZQLUDKZ4757-38-49 04:28:00 Test Item Value Reference Range Interpretation Comments Alk Phos (test code = Alk Phos) 89 39-136 N [facility] HospitalQhpanrdMFDXNQSFS2297-56-78 04:28:00 Test Item Value Reference Range Interpretation Comments ALANINE AMINOTRANSFERASE 11 See_Comment N [A utomated message] (test code = ALANINE The sys tem which AMINOTRANSFERASE) generated this result transmitted ref erence range: <=65. Th e reference range was not used to int erpret this result as normal/abnormal . [facility] HospitalSwswttlFMAUZJTGL0187-51-92 04:28:00 Test Item Value Reference Range Interpretation Comments Creatinine Lvl (test code = Creatinine 0.5 0.5-1.4 N Lvl) [facility] HospitalCasgrnjEZMACQALW1063-30-57 04:28:00 Test Item Value Reference Range Interpretation Comments BUN (test code = BUN) 3 7-22 L [facility] HospitalGhayfauIGAVZFONR8041-62-32 04:28:00 Test Item Value Reference Range Interpretation Comments Glucose Lvl (test code = Glucose Lvl) 255 70-99 H [facility] HospitalOxzmwwzIEUMUTBTW6219-77-58 04:28:00 Test Item Value Reference Range Interpretation Comments Total Protein (test code = Total 7.0 6.4-8.4 N Protein) [facility] HospitalHuzctjwBTRFSJEZA7262-05-78 04:28:00 Test Item Value Reference Range Interpretation Comments Calcium Lvl (test code = Calcium Lvl) 8.7 8.5-10.5 N [facility] HospitalXrdekjxREQISVUGU3894-29-66 04:28:00 Test Item Value Reference Range Interpretation Comments CO2 (test code = CO2) 29 24-32 N [facility] HospitalYzilbnjANJULLALQ4706-66-29 04:28:00 Test Item Value Reference Range Interpretation Comments Chloride Lvl (test code = Chloride Lvl) 104 95-109 N [facility] HospitalVpqxbinAXJWZYMCT3132-67-18 04:28:00 Test Item Value Reference Range Interpretation Comments Potassium Lvl (test code = Potassium 3.5 3.5-5.1 N Lvl) [facility] HospitalXujmtauFTVYRDZXE3663-22-37 04:28:00 Test Item Value Reference Range Interpretation Comments Sodium Lvl (test code = Sodium Lvl) 140 135-145 N [facility] CenterFyuofvaKODSNAXVAE2232-40-09 04:28:00 Test Item Value Reference Range Interpretation Comments PROTIME (test code = PROTIME) 12.1 s 12.0-14.7 N [facility] CenterCjhsrysPTVLCWNLAA7880-27-87 04:28:00 Test Item Value Reference Range Interpretation Comments aPTT (test code = aPTT) 39.0 s 22.9-35.8 H [facility] CenterBqmfeudKFHBYAJWZM1675-64-33 04:28:00 Test Item Value Reference Range Interpretation Comments INR (test code = INR) 0.90 0.85-1.17 N [facility] CenterPlbzcfiXIYRLNQXPJ8849-46-78 04:28:00 Test Item Value Reference Range Interpretation Comments MCH (test code = MCH) 29.4 pg 27.0-31.0 N [facility] CenterQeumbwqGDPMQYOOLX7111-69-81 04:28:00 Test Item Value Reference Range Interpretation Comments MCV (test code = MCV) 86.1 81.0-99.0 N [facility] CenterFxdzttbLMTRMZUBZR5229-70-19 04:28:00 Test Item Value Reference Range Interpretation Comments Hct (test code = Hct) 29.4 36.0-48.0 L [facility] CenterStaqwguQWEBXKZTEH8884-79-54 04:28:00 Test Item Value Reference Range Interpretation Comments RDW (test code = RDW) 14.0 11.5-14.5 N [facility] CenterGufuxxvCTDNPXSREY5539-55-86 04:28:00 Test Item Value Reference Range Interpretation Comments WBC X 10x3 (test code = WBC X 10x3) 6.2 3.7-10.4 N [facility] CenterHraboehLNRLWOGXEJ5684-36-07 04:28:00 Test Item Value Reference Range Interpretation Comments Platelet (test code = Platelet) 178 133-450 N [facility] CenterBgkgjhdSGGPYYEQJT5704-96-48 04:28:00 Test Item Value Reference Range Interpretation Comments MCHC (test code = MCHC) 34.1 32.0-36.0 N [facility] CenterSsoweooWKNJDHPSBX8997-02-10 04:28:00 Test Item Value Reference Range Interpretation Comments RBC X 10x6 (test code = RBC X 10x6) 3.41 4.20-5.40 L [facility] CenterMkecemvSRUWBZZACP4969-68-94 04:28:00 Test Item Value Reference Range Interpretation Comments Hgb (test code = Hgb) 10.0 12.0-16.0 L [facility] CenterPeqkmayFMURYGBBBW2516-53-53 04:28:00 Test Item Value Reference Range Interpretation Comments MPV (test code = MPV) 10.1 7.4-10.4 N [facility] CenterApjajkvGHMLWALGCR2267-50-59 04:28:00 Test Item Value Reference Range Interpretation Comments Segs-Bands # (test code = Segs-Bands #) 4.4 1.5-8.1 N [facility] CenterRsgjutbRWOWKYRQKY3185-79-57 04:28:00 Test Item Value Reference Range Interpretation Comments Basophils (test code = 0.7 See_Comment N [Aut omated message] The Basophils) system which ge nerated this result tra nsmitted reference range : <=1.0. The reference r leo was not used to int erpret this result as normal/abnormal . [facility] CenterOoqgzxpANMDDREJST6386-58-40 04:28:00 Test Item Value Reference Range Interpretation Comments Segs (test code = Segs) 70.7 45.0-75.0 N [facility] CenterQpkrvgjWARGCCHJLS8692-59-92 04:28:00 Test Item Value Reference Range Interpretation Comments Monocytes # (test code 0.3 See_Comment N [Aut omated message] The = Monocytes #) system which generated this result tra nsmitted reference range : <=0.8. The reference r leo was not used to int erpret this result as normal/abnormal . [facility] CenterJcttmuqXVGNCQGVKC5578-81-39 04:28:00 Test Item Value Reference Range Interpretation Comments Lymphocytes # (test code = Lymphocytes 1.2 1.0-5.5 N #) [facility] CenterKllrrjqZXRXCLMWEO7279-65-70 04:28:00 Test Item Value Reference Range Interpretation Comments Monocytes (test code = Monocytes) 4.5 2.0-12.0 N [facility] CenterRxdrdvnGOHDEVRPWC8569-93-23 04:28:00 Test Item Value Reference Range Interpretation Comments Eosinophils (test code = 4.1 See_Comment H [A utomated message] The Eosinophils) system which ge nerated this result tra nsmitted reference range : <=4.0. The reference r leo was not used to int erpret this result as normal/abnormal . [facility] CenterAddyjtgCDIJATUKJS6125-21-80 04:28:00 Test Item Value Reference Range Interpretation Comments Lymphocytes (test code = Lymphocytes) 20.0 20.0-40.0 N [facility] CenterMmbezctSGHLJWOJAQ3386-98-32 04:28:00 Test Item Value Reference Range Interpretation Comments Basophils # (test code 0.0 See_Comment N [Aut omated message] The = Basophils #) system which generated this result tra nsmitted reference range : <=0.2. The reference r leo was not used to int erpret this result as normal/abnormal . [facility] CenterSrtiqpkCADHZFZNMF5819-20-07 04:28:00 Test Item Value Reference Range Interpretation Comments Eosinophils # (test code 0.3 See_Comment N [A utomated message] The = Eosinophils #) system [employer] h generated this result tra nsmitted reference range : <=0.5. The reference r leo was not used to int erpret this result as normal/abnormal . [facility] GLUCOSE QCRRIDM9600-12-82 01:12:00 Test Item Value Reference Range Interpretation Comments Gluc POC Lifscn (test code = Gluc POC 260 70-99 H Lifscn) [facility] GLUCOSE ZLFQJUX3569-46-05 01:12:00 Test Item Value Reference Range Interpretation Comments Comment1 (test code = Comment1) Notify RN/ [facility] GLUCOSE VHLIJIJ5565-59-69 01:12:00 Test Item Value Reference Range Interpretation Comments Gluc POC Lifscn (test code = Gluc POC 260 70-99 H Lifscn) [facility] GLUCOSE ZYFYHMN6973-16-14 01:12:00 Test Item Value Reference Range Interpretation Comments Comment1 (test code = Comment1) Notify RN/ [facility] GLUCOSE WCMWIJM3867-14-66 01:12:00 Test Item Value Reference Range Interpretation Comments Gluc POC Lifscn (test code = Gluc POC 260 70-99 H Lifscn) [facility] GLUCOSE PHBOYIX2245-76-54 01:12:00 Test Item Value Reference Range Interpretation Comments Comment1 (test code = Comment1) Notify RN/ [facility] GLUCOSE XUVTEYZ1872-91-52 01:12:00 Test Item Value Reference Range Interpretation Comments Gluc POC Lifscn (test code = Gluc POC 260 70-99 H Lifscn) [facility] GLUCOSE GBHSUWB2991-31-65 01:12:00 Test Item Value Reference Range Interpretation Comments Comment1 (test code = Comment1) Notify RN/ [facility] GLUCOSE IHNQXXG7057-83-53 01:12:00 Test Item Value Reference Range Interpretation Comments Gluc POC Lifscn (test code = Gluc POC 260 70-99 H Lifscn) [facility] GLUCOSE YOFCUUG3189-88-89 01:12:00 Test Item Value Reference Range Interpretation Comments Comment1 (test code = Comment1) [facility]WrhgdemOFUHBZNLZD0202-60-69 23:40:00 Test Item Value Reference Range Interpretation Comments UA Protein (test code = Trace A UA Protein) *ABN*(03/14/2012 18:40:00) [facility]hayxcfBSJJAUGRPS3723-90-79 23:40:00 Test Item Value Reference Range Interpretation Comments UA pH (test code = UA pH) 6.0 1 5.0-8.0 N [facility] NorthwestQwuplqpGTWVQOELRI1009-49-15 23:40:00 Test Item Value Reference Range Interpretation Comments UA Ketones (test code = >=80 mg/dL UA Ketones) *NA*(03/14/2012 18:40:00) [facility]woodPlbhwykFQGBZIEWGA5552-42-29 23:40:00 Test Item Value Reference Range Interpretation Comments UA Glucose (test code = >=1000 mg/dL A UA Glucose) *ABN*(03/14/2012 18:40:00) [facility]woodNlszkihEBOQHTRLLG9370-49-05 23:40:00 Test Item Value Reference Range Interpretation Comments UA Blood (test code = Negative (03/14/2012 N UA Blood) 18:40:00) [facility]woodCyhugygUKAPDGRVFX6177-86-34 23:40:00 Test Item Value Reference Range Interpretation Comments UA Nitrite (test code Negative (03/14/2012 N = UA Nitrite) 18:40:00) [facility]woodZybbfxnOSHWEDBJAY8035-97-45 23:40:00 Test Item Value Reference Range Interpretation Comments UA Urobilinogen (test code = UA 0.2 0.1-1.0 N Urobilinogen) [facility]woodLtksvamKEILTOYCVT8944-15-93 23:40:00 Test Item Value Reference Range Interpretation Comments UA Leuk Est (test Negative (03/14/2012 N code = UA Leuk Est) 18:40:00) [facility] NorthwestAysjkqoLQTKDIVQFR9975-32-89 23:40:00 Test Item Value Reference Range Interpretation Comments UA Bili (test code = Negative *NA*(03/14/2012 UA Bili) 18:40:00) [facility]woodIeaqzmwJOAITSODCC9501-34-11 23:40:00 Test Item Value Reference Range Interpretation Comments UA Turbidity (test code = Clear (03/14/2012 N UA Turbidity) 18:40:00) [facility]woodShbrbaeERNUIJOLDY7940-89-40 23:40:00 Test Item Value Reference Range Interpretation Comments UA Color (test code = Yellow *NA*(03/14/2012 UA Color) 18:40:00) [facility]woodWurigwsMUGAFPYSVH5279-33-66 23:40:00 Test Item Value Reference Range Interpretation Comments UA Spec Grav (test >=1.030 A code = UA Spec Grav) *ABN*(03/14/2012 18:40:00) [facility]woodPxxzqmgVWOHYKKCFG2973-79-94 23:40:00 Test Item Value Reference Range Interpretation Comments UA Sq Epi (test code Occasional /LPF N = UA Sq Epi) (03/14/2012 18:40:00) [facility]woodUtgtrtzTGQVDRFUHQ3361-40-36 23:40:00 Test Item Value Reference Range Interpretation Comments UA WBC (test code = UA 3-5 /HPF (03/14/2012 N WBC) 18:40:00) [facility]woodTyseohnFWTSVWLQHB0000-05-56 23:40:00 Test Item Value Reference Range Interpretation Comments UA Bacteria (test code Occasional /HPF N = UA Bacteria) (03/14/2012 18:40:00) [facility]woodWcufjaxCLRRFKKYVS9867-08-22 23:40:00 Test Item Value Reference Range Interpretation Comments UA Protein (test code = Trace A UA Protein) *ABN*(03/14/2012 18:40:00) [facility]woodAxhhgqwTDLLKCQGCB4666-69-44 23:40:00 Test Item Value Reference Range Interpretation Comments UA pH (test code = UA pH) 6.0 1 5.0-8.0 N [facility]woodGezfwowVLGCWBGKWV7738-75-78 23:40:00 Test Item Value Reference Range Interpretation Comments UA Ketones (test code = >=80 mg/dL UA Ketones) *NA*(03/14/2012 18:40:00) [facility]woodMavuzfuIINOBAAPZA3274-96-67 23:40:00 Test Item Value Reference Range Interpretation Comments UA Glucose (test code = >=1000 mg/dL A UA Glucose) *ABN*(03/14/2012 18:40:00) [facility]woodNirsvenDQYBZOLIJD3342-71-04 23:40:00 Test Item Value Reference Range Interpretation Comments UA Blood (test code = Negative (03/14/2012 N UA Blood) 18:40:00) [facility] NorthwestLbfaoyqPYNUNCWSAR5429-19-77 23:40:00 Test Item Value Reference Range Interpretation Comments UA Nitrite (test code Negative (03/14/2012 N = UA Nitrite) 18:40:00) [facility]woodXokdwrkUTLPEZGXSA9642-73-64 23:40:00 Test Item Value Reference Range Interpretation Comments UA Urobilinogen (test code = UA 0.2 0.1-1.0 N Urobilinogen) [facility]woodBpvmosaWPFSBVTWYA3947-33-27 23:40:00 Test Item Value Reference Range Interpretation Comments UA Leuk Est (test Negative (03/14/2012 N code = UA Leuk Est) 18:40:00) [facility]woodFuhixlqKDZWUJRBDX6877-50-69 23:40:00 Test Item Value Reference Range Interpretation Comments UA Bili (test code = Negative *NA*(03/14/2012 UA Bili) 18:40:00) [facility]woodGhwjvauVJCGZSPAOW8872-21-15 23:40:00 Test Item Value Reference Range Interpretation Comments UA Turbidity (test code = Clear (03/14/2012 N UA Turbidity) 18:40:00) [facility]woodWkkstqiACEAOJLVQN9359-27-65 23:40:00 Test Item Value Reference Range Interpretation Comments UA Color (test code = Yellow *NA*(03/14/2012 UA Color) 18:40:00) [facility] KingwoodNtnjanyJNBECYIYLJ7373-89-12 23:40:00 Test Item Value Reference Range Interpretation Comments UA Spec Grav (test >=1.030 A code = UA Spec Grav) *ABN*(03/14/2012 18:40:00) [facility] KingwoodLuufmtaVRAKWKIGTY9147-79-10 23:40:00 Test Item Value Reference Range Interpretation Comments UA Sq Epi (test code Occasional /LPF N = UA Sq Epi) (03/14/2012 18:40:00) [facility] KingwoodYrfnnpfFEPIVGZVOF3101-10-38 23:40:00 Test Item Value Reference Range Interpretation Comments UA WBC (test code = UA 3-5 /HPF (03/14/2012 N WBC) 18:40:00) [facility] NorthwestEbvrjzbSVKPPNQIPA4519-54-48 23:40:00 Test Item Value Reference Range Interpretation Comments UA Bacteria (test code Occasional /HPF N = UA Bacteria) (03/14/2012 18:40:00) [facility] KingwoodJzdyeqrPNTPWUQXGU1052-63-96 23:40:00 Test Item Value Reference Range Interpretation Comments UA Protein (test code = Trace A UA Protein) *ABN*(03/14/2012 18:40:00) [id number] 23:40:00 Test Item Value Reference Range Interpretation Comments UA pH (test code = UA pH) 6.0 1 5.0-8.0 N [facility]woodEbsukdlAURULJSICE7282-18-41 23:40:00 Test Item Value Reference Range Interpretation Comments UA Ketones (test code = >=80 mg/dL UA Ketones) *NA*(03/14/2012 18:40:00) [facility]woodEhyohnqTVMQDNPMNI6262-16-87 23:40:00 Test Item Value Reference Range Interpretation Comments UA Glucose (test code = >=1000 mg/dL A UA Glucose) *ABN*(03/14/2012 18:40:00) [facility]woodCpnhvzpMIKQYNOEIA8882-15-07 23:40:00 Test Item Value Reference Range Interpretation Comments UA Blood (test code = Negative (03/14/2012 N UA Blood) 18:40:00) [facility]woodGruszivJPBLKCUZQO5788-20-98 23:40:00 Test Item Value Reference Range Interpretation Comments UA Nitrite (test code Negative (03/14/2012 N = UA Nitrite) 18:40:00) [facility]woodAntxlzqTIRBWJJDXI5141-83-28 23:40:00 Test Item Value Reference Range Interpretation Comments UA Urobilinogen (test code = UA 0.2 0.1-1.0 N Urobilinogen) [facility]woodUcsnqvnPSRIYQOMGJ9237-17-25 23:40:00 Test Item Value Reference Range Interpretation Comments UA Leuk Est (test Negative (03/14/2012 N code = UA Leuk Est) 18:40:00) [facility]woodEsifmabIIIKAPNTNJ0952-03-48 23:40:00 Test Item Value Reference Range Interpretation Comments UA Bili (test code = Negative *NA*(03/14/2012 UA Bili) 18:40:00) [facility]woodDkxtzcaJEHNEIDDDP3302-94-48 23:40:00 Test Item Value Reference Range Interpretation Comments UA Turbidity (test code = Clear (03/14/2012 N UA Turbidity) 18:40:00) [facility]woodCvxnffnGSRSNSCRAC1864-18-64 23:40:00 Test Item Value Reference Range Interpretation Comments UA Color (test code = Yellow *NA*(03/14/2012 UA Color) 18:40:00) [facility]woodIpxkgjiMHXRQZQEWS5277-76-21 23:40:00 Test Item Value Reference Range Interpretation Comments UA Spec Grav (test >=1.030 A code = UA Spec Grav) *ABN*(03/14/2012 18:40:00) [facility]woodRftfyqeSXCZJQSHAL6271-94-70 23:40:00 Test Item Value Reference Range Interpretation Comments UA Sq Epi (test code Occasional /LPF N = UA Sq Epi) (03/14/2012 18:40:00) [facility]woodLrvhbpzCFKIIODWSE6686-80-24 23:40:00 Test Item Value Reference Range Interpretation Comments UA WBC (test code = UA 3-5 /HPF (03/14/2012 N WBC) 18:40:00) [facility]woodAiwzxpiXIHIWUDMCN4283-69-06 23:40:00 Test Item Value Reference Range Interpretation Comments UA Bacteria (test code Occasional /HPF N = UA Bacteria) (03/14/2012 18:40:00) [facility]woodEdbnghyMEEWGOJIET9108-01-23 23:40:00 Test Item Value Reference Range Interpretation Comments UA Protein (test code = Trace A UA Protein) *ABN*(03/14/2012 18:40:00) [facility]woodYnxtopoMMXXWDEYRV1465-37-79 23:40:00 Test Item Value Reference Range Interpretation Comments UA pH (test code = UA pH) 6.0 1 5.0-8.0 N [facility]woodQegobsnKNSDPAUJVH9646-97-35 23:40:00 Test Item Value Reference Range Interpretation Comments UA Ketones (test code = >=80 mg/dL UA Ketones) *NA*(03/14/2012 18:40:00) [facility]woodPowvofeYGJISQSQPU1311-57-05 23:40:00 Test Item Value Reference Range Interpretation Comments UA Glucose (test code = >=1000 mg/dL A UA Glucose) *ABN*(03/14/2012 18:40:00) [facility]woodFgvchhkUHCULQMMGX3447-44-06 23:40:00 Test Item Value Reference Range Interpretation Comments UA Blood (test code = Negative (03/14/2012 N UA Blood) 18:40:00) [facility]ToelnygAANIIHPIHS0493-98-94 23:40:00 Test Item Value Reference Range Interpretation Comments UA Nitrite (test code Negative (03/14/2012 N = UA Nitrite) 18:40:00) [facility]woodRyboyolUNJKNRRSED1516-59-22 23:40:00 Test Item Value Reference Range Interpretation Comments UA Urobilinogen (test code = UA 0.2 0.1-1.0 N Urobilinogen) [facility]woodMmbgsvyNAUPSVULFZ4170-68-51 23:40:00 Test Item Value Reference Range Interpretation Comments UA Leuk Est (test Negative (03/14/2012 N code = UA Leuk Est) 18:40:00) [facility]woodCzjwuzwPOWQYAZQDK7116-65-04 23:40:00 Test Item Value Reference Range Interpretation Comments UA Bili (test code = Negative *NA*(03/14/2012 UA Bili) 18:40:00) [facility]woodOsqufatETOSBQHMMF6533-68-78 23:40:00 Test Item Value Reference Range Interpretation Comments UA Turbidity (test code = Clear (03/14/2012 N UA Turbidity) 18:40:00) [facility]woodWckgikhQCHGSHXQYI5902-71-54 23:40:00 Test Item Value Reference Range Interpretation Comments UA Color (test code = Yellow *NA*(03/14/2012 UA Color) 18:40:00) [facility]woodCmkejnrLMZFSECONA8603-66-41 23:40:00 Test Item Value Reference Range Interpretation Comments UA Spec Grav (test >=1.030 A code = UA Spec Grav) *ABN*(03/14/2012 18:40:00) [facility]woodSxqssxjAXMJWHZJDR1207-01-71 23:40:00 Test Item Value Reference Range Interpretation Comments UA Sq Epi (test code Occasional /LPF N = UA Sq Epi) (03/14/2012 18:40:00) [facility]woodEhauumqLXALDPCJII2848-67-84 23:40:00 Test Item Value Reference Range Interpretation Comments UA WBC (test code = UA 3-5 /HPF (03/14/2012 N WBC) 18:40:00) [facility] NorthwestPqudsgvXTIPYHIRMY2203-69-41 23:40:00 Test Item Value Reference Range Interpretation Comments UA Bacteria (test code Occasional /HPF N = UA Bacteria) (03/14/2012 18:40:00) [facility]woodXmbpkgnSQHSPSKVCO3138-18-49 23:40:00 Test Item Value Reference Range Interpretation Comments UA Protein (test code = Trace A UA Protein) *ABN*(03/14/2012 18:40:00) [facility]woodOvyijvqJKZMRUKVYJ3387-70-47 23:40:00 Test Item Value Reference Range Interpretation Comments UA pH (test code = UA pH) 6.0 1 5.0-8.0 N [facility] NorthwestXsmayuwTIIHGMFQNI9216-53-52 23:40:00 Test Item Value Reference Range Interpretation Comments UA Ketones (test code = >=80 mg/dL UA Ketones) *NA*(03/14/2012 18:40:00) [facility]woodBztmevmNEAZHFLVPY8824-37-54 23:40:00 Test Item Value Reference Range Interpretation Comments UA Glucose (test code = >=1000 mg/dL A UA Glucose) *ABN*(03/14/2012 18:40:00) [facility]woodGbdxmzaPFCHLUBOBI8663-66-01 23:40:00 Test Item Value Reference Range Interpretation Comments UA Blood (test code = Negative (03/14/2012 N UA Blood) 18:40:00) [facility]woodTchgnsiNBLMHQKBKN0013-66-31 23:40:00 Test Item Value Reference Range Interpretation Comments UA Nitrite (test code Negative (03/14/2012 N = UA Nitrite) 18:40:00) [facility]woodCyhtvruEIHUGKDMQO0510-82-42 23:40:00 Test Item Value Reference Range Interpretation Comments UA Urobilinogen (test code = UA 0.2 0.1-1.0 N Urobilinogen) [facility]woodHashqjiRAFANOLIKS5335-41-26 23:40:00 Test Item Value Reference Range Interpretation Comments UA Leuk Est (test Negative (03/14/2012 N code = UA Leuk Est) 18:40:00) [facility]woodCrohvgvDHVRTBTOTB9917-94-02 23:40:00 Test Item Value Reference Range Interpretation Comments UA Bili (test code = Negative *NA*(03/14/2012 UA Bili) 18:40:00) [facility]woodNittgukVWFGVAXAQS2289-85-56 23:40:00 Test Item Value Reference Range Interpretation Comments UA Turbidity (test code = Clear (03/14/2012 N UA Turbidity) 18:40:00) [facility] NorthwestLzpxzpoPJFOXCSXGU4142-68-41 23:40:00 Test Item Value Reference Range Interpretation Comments UA Color (test code = Yellow *NA*(03/14/2012 UA Color) 18:40:00) [facility]woodBmbogjsVMTSXMWATA9679-19-48 23:40:00 Test Item Value Reference Range Interpretation Comments UA Spec Grav (test >=1.030 A code = UA Spec Grav) *ABN*(03/14/2012 18:40:00) [facility]woodWifsctmVSAKIZQWHC1730-97-94 23:40:00 Test Item Value Reference Range Interpretation Comments UA Sq Epi (test code Occasional /LPF N = UA Sq Epi) (03/14/2012 18:40:00) [facility]woodIemzwkaPPRZQKJEBT1796-91-16 23:40:00 Test Item Value Reference Range Interpretation Comments UA WBC (test code = UA 3-5 /HPF (03/14/2012 N WBC) 18:40:00) [facility]woodWagpiotRTRQMAIKET8066-52-83 23:40:00 Test Item Value Reference Range Interpretation Comments UA Bacteria (test code Occasional /HPF N = UA Bacteria) (03/14/2012 18:40:00) [facility]PvkdwziLQHJNWJKQ3012-33-51 22:50:00 Test Item Value Reference Range Interpretation Comments S Preg (test code = S Negative *NA*(03/14/2012 Preg) 17:50:00) [facility] HospitalNyjlyheQHZFMVSLV7136-14-34 22:50:00 Test Item Value Reference Range Interpretation Comments Lipase Lvl (test code = Lipase Lvl) 45 73-393 L [facility] HospitalKyplehmKRFEUQWXA4234-54-33 22:50:00 Test Item Value Reference Range Interpretation Comments A/G Ratio (test code = A/G Ratio) 1.2 0.7-1.6 N [facility] HospitalYhzowdaBOYBTRHDV9073-33-69 22:50:00 Test Item Value Reference Range Interpretation Comments Globulin (test code = Globulin) 3.8 2.0-4.0 N [facility] HospitalWbwlsvsUFEQKAUDQ7366-87-24 22:50:00 Test Item Value Reference Range Interpretation Comments B/C Ratio (test code = B/C Ratio) 21 6-25 N [facility] HospitalUeajwymIYDRFKOWX0691-51-31 22:50:00 Test Item Value Reference Range Interpretation Comments AGAP (test code = AGAP) 16.8 10.0-20.0 N [facility] HospitalEikofdcYASIBUUIZ1404-08-05 22:50:00 Test Item Value Reference Range Interpretation Comments Bili Total (test code = Bili Total) 1.1 0.2-1.3 N [facility] HospitalAtezobtKIGGSQPNL6302-57-35 22:50:00 Test Item Value Reference Range Interpretation Comments Total Protein (test code = Total 8.2 6.4-8.4 N Protein) [facility] HospitalUouhhriCDGQRFAGT4723-65-76 22:50:00 Test Item Value Reference Range Interpretation Comments Potassium Lvl (test code = Potassium 3.8 3.5-5.1 N Lvl) [facility] HospitalPfykpveEUGFCZQFB5678-45-86 22:50:00 Test Item Value Reference Range Interpretation Comments Creatinine Lvl (test code = Creatinine 0.7 0.5-1.4 N Lvl) [facility] HospitalHvtigxaFRIYXVJTL8441-32-48 22:50:00 Test Item Value Reference Range Interpretation Comments Sodium Lvl (test code = Sodium Lvl) 139 135-145 N [facility] HospitalEalgebtXSACSZZGF1792-67-65 22:50:00 Test Item Value Reference Range Interpretation Comments Chloride Lvl (test code = Chloride Lvl) 99 95-109 N [facility] HospitalXabviooYWFPWCBBS1420-19-27 22:50:00 Test Item Value Reference Range Interpretation Comments CO2 (test code = CO2) 27 24-32 N [facility] HospitalHdhsnvxFKCINNDDR2310-78-10 22:50:00 Test Item Value Reference Range Interpretation Comments Glucose Lvl (test code = Glucose Lvl) 301 70-99 H [facility] HospitalLuiphbqHRISORRPQ1367-50-56 22:50:00 Test Item Value Reference Range Interpretation Comments BUN (test code = BUN) 15 7-22 N [facility] HospitalSsciftaHUZTOCVBK2202-39-18 22:50:00 Test Item Value Reference Range Interpretation Comments ALT (test code = ALT) 24 See_Comment N [Auto mated message] The system which ge nerated this result transmit rohit reference range : <=65. The reference range was not used to interpr et this result as reji l/abnormal. [facility] HospitalZzsjoupFYSWJGARL1655-39-81 22:50:00 Test Item Value Reference Range Interpretation Comments AST (test code = AST) 20 See_Comment N [Auto mated message] The system which ge nerated this result transmit rohit reference range : <=37. The reference range was not used to interpr et this result as reji l/abnormal. [facility] HospitalXduehunNPCKXXSRS5711-62-72 22:50:00 Test Item Value Reference Range Interpretation Comments Alk Phos (test code = Alk Phos) 67 39-136 N [facility] HospitalPzxvzxoTQTOKTZVQ8157-89-74 22:50:00 Test Item Value Reference Range Interpretation Comments Albumin Lvl (test code = Albumin Lvl) 4.4 3.5-5.0 N [facility] HospitalRvlbcwnCOMAYKDBX9647-89-57 22:50:00 Test Item Value Reference Range Interpretation Comments Calcium Lvl (test code = Calcium Lvl) 9.9 8.5-10.5 N [facility]HyboqhyDZWRDUJPSP4951-59-24 22:50:00 Test Item Value Reference Range Interpretation Comments MPV (test code = MPV) 11.8 7.4-10.4 H [facility] CenterDwvvprkFBYLOGXUOU0664-54-92 22:50:00 Test Item Value Reference Range Interpretation Comments MCHC (test code = MCHC) 35.9 32.0-36.0 N [facility] CenterBdjsrlrYTWZJSAGSC7829-46-97 22:50:00 Test Item Value Reference Range Interpretation Comments MCH (test code = MCH) 31.2 pg 27.0-31.0 H [facility] CenterHqpsuaaILFPGGGEUN7482-79-60 22:50:00 Test Item Value Reference Range Interpretation Comments Platelet (test code = Platelet) 189 133-450 N [facility] CenterSdlhfyuSMSONUGBXC4080-00-68 22:50:00 Test Item Value Reference Range Interpretation Comments RDW (test code = RDW) 13.1 11.5-14.5 N [facility] CenterVhigzlhFINPWQEBSR5898-41-44 22:50:00 Test Item Value Reference Range Interpretation Comments Hct (test code = Hct) 40.7 36.0-48.0 N [facility] CenterSzxeglfGPTQOHWFCJ4415-95-88 22:50:00 Test Item Value Reference Range Interpretation Comments Hgb (test code = Hgb) 14.6 12.0-16.0 N [facility] CenterAhzxzgzPCAFWLNXJU1235-25-38 22:50:00 Test Item Value Reference Range Interpretation Comments MCV (test code = MCV) 87.0 81.0-99.0 N [facility] CenterXqfqcniTAKFOWHPVG1478-98-77 22:50:00 Test Item Value Reference Range Interpretation Comments WBC (test code = WBC) 11.7 3.7-10.4 H [facility] CenterNcynmflQVYMAVZMXA9299-87-64 22:50:00 Test Item Value Reference Range Interpretation Comments RBC (test code = RBC) 4.68 4.20-5.40 N [facility] CenterGvmnsbhZYYGSAACWF2921-93-45 22:50:00 Test Item Value Reference Range Interpretation Comments Basophils # (test code 0.0 See_Comment N [Aut omated message] The = Basophils #) system which generated this result tra nsmitted reference range : <=0.2. The reference r leo was not used to int erpret this result as normal/abnormal . [facility] CenterRicdnqtOXJPMTSFEF5928-09-45 22:50:00 Test Item Value Reference Range Interpretation Comments Basophils (test code = 0.2 See_Comment N [Aut omated message] The Basophils) system which ge nerated this result tra nsmitted reference range : <=1.0. The reference r leo was not used to int erpret this result as normal/abnormal . [facility] CenterHzwetlyHKDASLFJIW9863-44-21 22:50:00 Test Item Value Reference Range Interpretation Comments Eosinophils # (test code 0.0 See_Comment N [A utomated message] The = Eosinophils #) system whic h generated this result tra nsmitted reference range : <=0.5. The reference r leo was not used to int erpret this result as normal/abnormal . [facility] CenterPcipfzjEAXJWMUPKV9643-49-53 22:50:00 Test Item Value Reference Range Interpretation Comments Monocytes # (test code 0.4 See_Comment N [Aut omated message] The = Monocytes #) system which generated this result tra nsmitted reference range : <=0.8. The reference r leo was not used to int erpret this result as normal/abnormal . [facility] CenterWwrawsnOZPSMOJNDI0255-21-19 22:50:00 Test Item Value Reference Range Interpretation Comments Segs-Bands # (test code = Segs-Bands #) 10.6 1.5-8.1 H [facility] CenterZsqjgfoMTEKCPNJVD1172-67-01 22:50:00 Test Item Value Reference Range Interpretation Comments Lymphocytes # (test code = Lymphocytes 0.7 1.0-5.5 L #) [facility] CenterNyyddakSOPFMVXCEG1452-81-91 22:50:00 Test Item Value Reference Range Interpretation Comments Monocytes (test code = Monocytes) 3.4 2.0-12.0 N [facility] CenterEnnxtpeSFNJZTNCAW7578-99-48 22:50:00 Test Item Value Reference Range Interpretation Comments Plt Morph (test code = Normal (03/14/2012 N Plt Morph) 17:50:00) [facility] CenterLfaxvlqODDNRDZOIG4245-55-56 22:50:00 Test Item Value Reference Range Interpretation Comments Lymphocytes (test code = Lymphocytes) 6.0 20.0-40.0 L [facility] CenterClqglviUNOHZQCOYT6554-94-80 22:50:00 Test Item Value Reference Range Interpretation Comments Eosinophils (test code = 0.0 See_Comment N [A utomated message] The Eosinophils) system which ge nerated this result tra nsmitted reference range : <=4.0. The reference r leo was not used to int erpret this result as normal/abnormal . [facility] CenterMnhlcowWUWKZFOZYY3836-23-13 22:50:00 Test Item Value Reference Range Interpretation Comments Segs (test code = Segs) 90.4 45.0-75.0 H [facility] CenterXqnlznzOCWGSBYTUK7579-67-89 22:50:00 Test Item Value Reference Range Interpretation Comments RBC Morph (test code = Normal (03/14/2012 N RBC Morph) 17:50:00) [facility]ErmebvzSXFUSZFGF9381-73-82 22:50:00 Test Item Value Reference Range Interpretation Comments S Preg (test code = S Negative *NA*(03/14/2012 Preg) 17:50:00) [facility] HospitalStalychVRBGWSEIQ3977-75-53 22:50:00 Test Item Value Reference Range Interpretation Comments Lipase Lvl (test code = Lipase Lvl) 45 73-393 L [facility] HospitalYqdngktIAJNWXIBP7456-41-42 22:50:00 Test Item Value Reference Range Interpretation Comments A/G Ratio (test code = A/G Ratio) 1.2 0.7-1.6 N [facility] HospitalCosweooESNGDXXZI6553-52-87 22:50:00 Test Item Value Reference Range Interpretation Comments Globulin (test code = Globulin) 3.8 2.0-4.0 N [facility] HospitalCmrnerkSCSFKQOCG5600-15-37 22:50:00 Test Item Value Reference Range Interpretation Comments B/C Ratio (test code = B/C Ratio) 21 6-25 N [facility] HospitalBqeeongCSGIYFWUT9634-38-32 22:50:00 Test Item Value Reference Range Interpretation Comments AGAP (test code = AGAP) 16.8 10.0-20.0 N [facility] HospitalChyfmhhNNWTKZZQV8362-69-99 22:50:00 Test Item Value Reference Range Interpretation Comments Bili Total (test code = Bili Total) 1.1 0.2-1.3 N [facility] HospitalSbeuiniLTHKNZSNY8359-87-59 22:50:00 Test Item Value Reference Range Interpretation Comments Total Protein (test code = Total 8.2 6.4-8.4 N Protein) [facility] HospitalGeftjpzSXNWRTKEO7513-91-70 22:50:00 Test Item Value Reference Range Interpretation Comments Potassium Lvl (test code = Potassium 3.8 3.5-5.1 N Lvl) [facility] HospitalFgllezfOKBSCLEQB7673-37-70 22:50:00 Test Item Value Reference Range Interpretation Comments Creatinine Lvl (test code = Creatinine 0.7 0.5-1.4 N Lvl) [facility] HospitalJxuwmrpADESWEAKR0841-44-72 22:50:00 Test Item Value Reference Range Interpretation Comments Sodium Lvl (test code = Sodium Lvl) 139 135-145 N [facility] HospitalMijbhfyHBMDEOUEQ7114-65-08 22:50:00 Test Item Value Reference Range Interpretation Comments Chloride Lvl (test code = Chloride Lvl) 99 95-109 N [facility] HospitalUamuucvAFTHBHSGI2400-00-31 22:50:00 Test Item Value Reference Range Interpretation Comments CO2 (test code = CO2) 27 24-32 N [facility] HospitalXznroxwPTMDUNISK2622-03-13 22:50:00 Test Item Value Reference Range Interpretation Comments Glucose Lvl (test code = Glucose Lvl) 301 70-99 H [facility] HospitalTgsrsqiUWMSBYIWU4087-71-64 22:50:00 Test Item Value Reference Range Interpretation Comments BUN (test code = BUN) 15 7-22 N [facility] HospitalUdtmahiYNYKRCZEA6844-40-67 22:50:00 Test Item Value Reference Range Interpretation Comments ALT (test code = ALT) 24 See_Comment N [Auto mated message] The system which ge nerated this result transmit rohit reference range : <=65. The reference range was not used to interpr et this result as reji l/abnormal. [facility] HospitalVmqvjqlFNMCJVYGD0575-94-92 22:50:00 Test Item Value Reference Range Interpretation Comments AST (test code = AST) 20 See_Comment N [Auto mated message] The system which ge nerated this result transmit rohit reference range : <=37. The reference range was not used to interpr et this result as reji l/abnormal. [facility] HospitalFobwxtbWRFABEMYF8879-22-89 22:50:00 Test Item Value Reference Range Interpretation Comments Alk Phos (test code = Alk Phos) 67 39-136 N [facility] HospitalAefzbmfAUOSXYBLT3431-09-42 22:50:00 Test Item Value Reference Range Interpretation Comments Albumin Lvl (test code = Albumin Lvl) 4.4 3.5-5.0 N [facility] HospitalUwdywiwUJXGTQEOH3915-52-39 22:50:00 Test Item Value Reference Range Interpretation Comments Calcium Lvl (test code = Calcium Lvl) 9.9 8.5-10.5 N [facility] CenterFsgksmjTRHMAMZXGS6145-30-72 22:50:00 Test Item Value Reference Range Interpretation Comments MPV (test code = MPV) 11.8 7.4-10.4 H [facility] CenterMndaxwdYAOTNQRBFN7304-42-50 22:50:00 Test Item Value Reference Range Interpretation Comments MCHC (test code = MCHC) 35.9 32.0-36.0 N [facility] CenterHtoovixGHGKVXYETX4200-61-86 22:50:00 Test Item Value Reference Range Interpretation Comments MCH (test code = MCH) 31.2 pg 27.0-31.0 H [facility] CenterSotkgvxLYKDJPDJHC0327-52-17 22:50:00 Test Item Value Reference Range Interpretation Comments Platelet (test code = Platelet) 189 133-450 N [facility] CenterSmurnnuENLWTRXING4346-52-15 22:50:00 Test Item Value Reference Range Interpretation Comments RDW (test code = RDW) 13.1 11.5-14.5 N [facility] CenterBeaekgnATRFCNLYKR0490-78-29 22:50:00 Test Item Value Reference Range Interpretation Comments Hct (test code = Hct) 40.7 36.0-48.0 N [facility] CenterIpalyjsOOYLMGNNPS7202-13-70 22:50:00 Test Item Value Reference Range Interpretation Comments Hgb (test code = Hgb) 14.6 12.0-16.0 N [facility] CenterNyxndfxBTLIPCMHAU3522-58-87 22:50:00 Test Item Value Reference Range Interpretation Comments MCV (test code = MCV) 87.0 81.0-99.0 N [facility] CenterLvltswpESRNYMNKLO1018-47-13 22:50:00 Test Item Value Reference Range Interpretation Comments WBC (test code = WBC) 11.7 3.7-10.4 H [facility] CenterOeqdejqXIPOMOSFTG3256-14-75 22:50:00 Test Item Value Reference Range Interpretation Comments RBC (test code = RBC) 4.68 4.20-5.40 N [facility] CenterLhghiuuEHPMJPRSSC3614-29-24 22:50:00 Test Item Value Reference Range Interpretation Comments Basophils # (test code 0.0 See_Comment N [Aut omated message] The = Basophils #) system which generated this result tra nsmitted reference range : <=0.2. The reference r leo was not used to int erpret this result as normal/abnormal . [facility] CenterWrcbsicASIDUDFAPJ9492-58-53 22:50:00 Test Item Value Reference Range Interpretation Comments Basophils (test code = 0.2 See_Comment N [Aut omated message] The Basophils) system which ge nerated this result tra nsmitted reference range : <=1.0. The reference r leo was not used to int erpret this result as normal/abnormal . [facility] CenterEcryniqFPSKLHLVKJ9141-56-24 22:50:00 Test Item Value Reference Range Interpretation Comments Eosinophils # (test code 0.0 See_Comment N [A utomated message] The = Eosinophils #) system [facility] h generated this result tra nsmitted reference range : <=0.5. The reference r leo was not used to int erpret this result as normal/abnormal . [facility] CenterKshykmsNZAEWAUNGU8976-30-63 22:50:00 Test Item Value Reference Range Interpretation Comments Monocytes # (test code 0.4 See_Comment N [Aut omated message] The = Monocytes #) system which generated this result tra nsmitted reference range : <=0.8. The reference r leo was not used to int erpret this result as normal/abnormal . [facility] CenterQnchmsvLWPCAGHGMA4051-53-16 22:50:00 Test Item Value Reference Range Interpretation Comments Segs-Bands # (test code = Segs-Bands #) 10.6 1.5-8.1 H [facility] CenterXxivtklVINRJIAJPT1938-56-38 22:50:00 Test Item Value Reference Range Interpretation Comments Lymphocytes # (test code = Lymphocytes 0.7 1.0-5.5 L #) [facility] CenterBkvydigFCHXRWNCVN3935-14-59 22:50:00 Test Item Value Reference Range Interpretation Comments Monocytes (test code = Monocytes) 3.4 2.0-12.0 N [facility] CenterFhwywxfNSJKKTVYKQ3897-40-89 22:50:00 Test Item Value Reference Range Interpretation Comments Plt Morph (test code = Normal (03/14/2012 N Plt Morph) 17:50:00) [facility]JlsxgmeKJAGMXUIXZ9231-14-11 22:50:00 Test Item Value Reference Range Interpretation Comments Lymphocytes (test code = Lymphocytes) 6.0 20.0-40.0 L [facility] CenterPnvrpzlDOFWHNRVJB0745-44-36 22:50:00 Test Item Value Reference Range Interpretation Comments Eosinophils (test code = 0.0 See_Comment N [A utomated message] The Eosinophils) system which ge nerated this result tra nsmitted reference range : <=4.0. The reference r leo was not used to int erpret this result as normal/abnormal . [facility] CenterLokpopbRWWFIQFEKW2406-09-62 22:50:00 Test Item Value Reference Range Interpretation Comments Segs (test code = Segs) 90.4 45.0-75.0 H [facility] CenterCsrrejkAUXGKXRUYS2734-87-24 22:50:00 Test Item Value Reference Range Interpretation Comments RBC Morph (test code = Normal (03/14/2012 N RBC Morph) 17:50:00) [facility]iejheqWQFAYIIQC3394-58-98 22:50:00 Test Item Value Reference Range Interpretation Comments S Preg (test code = S Negative *NA*(03/14/2012 Preg) 17:50:00) [facility] HospitalXnunnniWKLCDUNCI2479-36-06 22:50:00 Test Item Value Reference Range Interpretation Comments Lipase Lvl (test code = Lipase Lvl) 45 73-393 L [facility] HospitalModhhziDBMYTWIAB7569-03-45 22:50:00 Test Item Value Reference Range Interpretation Comments A/G Ratio (test code = A/G Ratio) 1.2 0.7-1.6 N [facility] HospitalVsoqefwYNJHLXZPS6817-10-51 22:50:00 Test Item Value Reference Range Interpretation Comments Globulin (test code = Globulin) 3.8 2.0-4.0 N [facility] HospitalYjqlogvPYKUZZSFM4864-32-93 22:50:00 Test Item Value Reference Range Interpretation Comments B/C Ratio (test code = B/C Ratio) 21 6-25 N [facility] HospitalVcgsptdMPXPDLMRQ0637-76-06 22:50:00 Test Item Value Reference Range Interpretation Comments AGAP (test code = AGAP) 16.8 10.0-20.0 N [facility] HospitalKtumlxiPDGWRDMHU6647-85-71 22:50:00 Test Item Value Reference Range Interpretation Comments Bili Total (test code = Bili Total) 1.1 0.2-1.3 N [facility] HospitalKwufxqmCXGDBBYPK7688-62-87 22:50:00 Test Item Value Reference Range Interpretation Comments Total Protein (test code = Total 8.2 6.4-8.4 N Protein) [facility] HospitalCbimzzeORIGZZQQV5427-25-73 22:50:00 Test Item Value Reference Range Interpretation Comments Potassium Lvl (test code = Potassium 3.8 3.5-5.1 N Lvl) [facility] HospitalBervqpyVUTZKEORM9271-97-65 22:50:00 Test Item Value Reference Range Interpretation Comments Creatinine Lvl (test code = Creatinine 0.7 0.5-1.4 N Lvl) [facility] HospitalTamtxyrOHVZQBDXY0776-37-88 22:50:00 Test Item Value Reference Range Interpretation Comments Sodium Lvl (test code = Sodium Lvl) 139 135-145 N [facility] HospitalHglyicfTZCIQVUVP8479-98-98 22:50:00 Test Item Value Reference Range Interpretation Comments Chloride Lvl (test code = Chloride Lvl) 99 95-109 N [facility] HospitalUznwsiwTSIIKPKPY8296-38-00 22:50:00 Test Item Value Reference Range Interpretation Comments CO2 (test code = CO2) 27 24-32 N [facility] HospitalIoaaetxDPEETTMVC3004-33-71 22:50:00 Test Item Value Reference Range Interpretation Comments Glucose Lvl (test code = Glucose Lvl) 301 70-99 H [facility] HospitalFgswnaaDKFPYPTUX3803-60-24 22:50:00 Test Item Value Reference Range Interpretation Comments BUN (test code = BUN) 15 7-22 N [facility] HospitalVhcjugtJBYIOBYIL4068-63-38 22:50:00 Test Item Value Reference Range Interpretation Comments ALT (test code = ALT) 24 See_Comment N [Auto mated message] The system which ge nerated this result transmit rohit reference range : <=65. The reference range was not used to interpr et this result as reji l/abnormal. [facility] HospitalNgcvuftGYWBWCBGJ4711-65-69 22:50:00 Test Item Value Reference Range Interpretation Comments AST (test code = AST) 20 See_Comment N [Auto mated message] The system which ge nerated this result transmit rohit reference range : <=37. The reference range was not used to interpr et this result as reji l/abnormal. [facility] HospitalRfhnhcuASTOMOFTO4584-14-42 22:50:00 Test Item Value Reference Range Interpretation Comments Alk Phos (test code = Alk Phos) 67 39-136 N [facility] HospitalWvkikecOPPNHWCWX8348-36-08 22:50:00 Test Item Value Reference Range Interpretation Comments Albumin Lvl (test code = Albumin Lvl) 4.4 3.5-5.0 N [facility] HospitalRqfrahuYXUKWEIJO6719-69-88 22:50:00 Test Item Value Reference Range Interpretation Comments Calcium Lvl (test code = Calcium Lvl) 9.9 8.5-10.5 N [facility] CenterLubaimwWEEMOSTRIC6554-54-14 22:50:00 Test Item Value Reference Range Interpretation Comments MPV (test code = MPV) 11.8 7.4-10.4 H [facility] CenterWwuyzzmJAYVSISJTT6937-14-57 22:50:00 Test Item Value Reference Range Interpretation Comments MCHC (test code = MCHC) 35.9 32.0-36.0 N [facility] CenterCntcpixBGBSJHIQXU2631-05-02 22:50:00 Test Item Value Reference Range Interpretation Comments MCH (test code = MCH) 31.2 pg 27.0-31.0 H [facility] CenterEuqkqurAAIOTLQUOA7740-99-12 22:50:00 Test Item Value Reference Range Interpretation Comments Platelet (test code = Platelet) 189 133-450 N [facility] CenterPpbzsmkCJBQUFPOBZ0272-63-86 22:50:00 Test Item Value Reference Range Interpretation Comments RDW (test code = RDW) 13.1 11.5-14.5 N [facility] CenterJshbwdsNKHGTPYCCN1482-21-50 22:50:00 Test Item Value Reference Range Interpretation Comments Hct (test code = Hct) 40.7 36.0-48.0 N [facility] CenterBrlnllpTGWJORYTFU2494-15-43 22:50:00 Test Item Value Reference Range Interpretation Comments Hgb (test code = Hgb) 14.6 12.0-16.0 N [facility] CenterKjtnnmxLMUXLXVMTY0867-00-13 22:50:00 Test Item Value Reference Range Interpretation Comments MCV (test code = MCV) 87.0 81.0-99.0 N [facility] CenterBooymoyRJAQEVBAZR7798-96-43 22:50:00 Test Item Value Reference Range Interpretation Comments WBC (test code = WBC) 11.7 3.7-10.4 H [facility] CenterZzqheypVCDZDGKLXG2053-59-33 22:50:00 Test Item Value Reference Range Interpretation Comments RBC (test code = RBC) 4.68 4.20-5.40 N [facility] CenterWuaphwyUBRKOLREHA6743-76-42 22:50:00 Test Item Value Reference Range Interpretation Comments Basophils # (test code 0.0 See_Comment N [Aut omated message] The = Basophils #) system which generated this result tra nsmitted reference range : <=0.2. The reference r leo was not used to int erpret this result as normal/abnormal . [facility] CenterBqzfyjdQMUWVFUIFB7674-43-23 22:50:00 Test Item Value Reference Range Interpretation Comments Basophils (test code = 0.2 See_Comment N [Aut omated message] The Basophils) system which ge nerated this result tra nsmitted reference range : <=1.0. The reference r leo was not used to int erpret this result as normal/abnormal . [facility] CenterSjatkqwEWHUVOIDLO8249-62-54 22:50:00 Test Item Value Reference Range Interpretation Comments Eosinophils # (test code 0.0 See_Comment N [A utomated message] The = Eosinophils #) system whic h generated this result tra nsmitted reference range : <=0.5. The reference r leo was not used to int erpret this result as normal/abnormal . [facility] CenterLybrhxqXBZMVHUPSX3199-86-53 22:50:00 Test Item Value Reference Range Interpretation Comments Monocytes # (test code 0.4 See_Comment N [Aut omated message] The = Monocytes #) system which generated this result tra nsmitted reference range : <=0.8. The reference r leo was not used to int erpret this result as normal/abnormal . [facility] CenterOqpmmjzZVOOLZLVLD1421-45-82 22:50:00 Test Item Value Reference Range Interpretation Comments Segs-Bands # (test code = Segs-Bands #) 10.6 1.5-8.1 H [facility] CenterQikevzkQWPQWGPGLA3911-83-92 22:50:00 Test Item Value Reference Range Interpretation Comments Lymphocytes # (test code = Lymphocytes 0.7 1.0-5.5 L #) [facility] CenterIwkypblDQIIGWDNPT5274-22-19 22:50:00 Test Item Value Reference Range Interpretation Comments Monocytes (test code = Monocytes) 3.4 2.0-12.0 N [facility] CenterTtgmibkWLHSNUOVBB3664-12-35 22:50:00 Test Item Value Reference Range Interpretation Comments Plt Morph (test code = Normal (03/14/2012 N Plt Morph) 17:50:00) [facility] CenterObsqdfhYTMKZIPGQR9770-64-36 22:50:00 Test Item Value Reference Range Interpretation Comments Lymphocytes (test code = Lymphocytes) 6.0 20.0-40.0 L [facility] CenterBlplarvFRGGKXVSCV8607-40-74 22:50:00 Test Item Value Reference Range Interpretation Comments Eosinophils (test code = 0.0 See_Comment N [A utomated message] The Eosinophils) system which ge nerated this result tra nsmitted reference range : <=4.0. The reference r leo was not used to int erpret this result as normal/abnormal . [facility] CenterVghdnxzPXQNFTGEWP8781-66-89 22:50:00 Test Item Value Reference Range Interpretation Comments Segs (test code = Segs) 90.4 45.0-75.0 H [facility] CenterJqafanxISBESHGJLA9071-01-37 22:50:00 Test Item Value Reference Range Interpretation Comments RBC Morph (test code = Normal (03/14/2012 N RBC Morph) 17:50:00) [facility] HospitalUjnagrvLFRUQXUXV2672-46-97 22:50:00 Test Item Value Reference Range Interpretation Comments S Preg (test code = S Negative *NA*(03/14/2012 Preg) 17:50:00) [facility] HospitalHivxmbhBCJCFVCJL3562-93-24 22:50:00 Test Item Value Reference Range Interpretation Comments Lipase Lvl (test code = Lipase Lvl) 45 73-393 L [facility] HospitalLyaevuyEZTZTAOAU9687-02-90 22:50:00 Test Item Value Reference Range Interpretation Comments A/G Ratio (test code = A/G Ratio) 1.2 0.7-1.6 N [facility] HospitalZyffzhrCJSMONZTK7966-22-15 22:50:00 Test Item Value Reference Range Interpretation Comments Globulin (test code = Globulin) 3.8 2.0-4.0 N [facility] HospitalZgwcszvULIGIZCPY3232-05-38 22:50:00 Test Item Value Reference Range Interpretation Comments B/C Ratio (test code = B/C Ratio) 21 6-25 N [facility] HospitalAqkxxspMCSCNBJMU1011-65-71 22:50:00 Test Item Value Reference Range Interpretation Comments AGAP (test code = AGAP) 16.8 10.0-20.0 N [facility] HospitalNhapnexTDPWWQDIN4518-06-01 22:50:00 Test Item Value Reference Range Interpretation Comments Bili Total (test code = Bili Total) 1.1 0.2-1.3 N [facility] HospitalMgornxbEVGOUJAIS7663-51-02 22:50:00 Test Item Value Reference Range Interpretation Comments Total Protein (test code = Total 8.2 6.4-8.4 N Protein) [facility] HospitalQlabwqaZTKCHJEPJ7335-77-93 22:50:00 Test Item Value Reference Range Interpretation Comments Potassium Lvl (test code = Potassium 3.8 3.5-5.1 N Lvl) [facility] HospitalJzvnoujYFLYMWPCQ8263-25-27 22:50:00 Test Item Value Reference Range Interpretation Comments Creatinine Lvl (test code = Creatinine 0.7 0.5-1.4 N Lvl) [facility] HospitalRqlhlucSMVRLQRGQ9193-04-42 22:50:00 Test Item Value Reference Range Interpretation Comments Sodium Lvl (test code = Sodium Lvl) 139 135-145 N [facility] HospitalXglxedeMEQEPSZKO6713-58-84 22:50:00 Test Item Value Reference Range Interpretation Comments Chloride Lvl (test code = Chloride Lvl) 99 95-109 N [facility] HospitalFafkjrtZPTEBFHBG7332-79-48 22:50:00 Test Item Value Reference Range Interpretation Comments CO2 (test code = CO2) 27 24-32 N [facility] HospitalTjzqpqqYLQYRHLMU2910-87-41 22:50:00 Test Item Value Reference Range Interpretation Comments Glucose Lvl (test code = Glucose Lvl) 301 70-99 H [facility] HospitalMdwdhmfNCTFCHKUJ2566-90-71 22:50:00 Test Item Value Reference Range Interpretation Comments BUN (test code = BUN) 15 7-22 N [facility] HospitalWhpsalaIGHQJQELI9365-75-70 22:50:00 Test Item Value Reference Range Interpretation Comments ALT (test code = ALT) 24 See_Comment N [Auto mated message] The system which ge nerated this result transmit rohit reference range : <=65. The reference range was not used to interpr et this result as reji l/abnormal. [facility] HospitalQdoidssUXUDWZZHO8469-11-26 22:50:00 Test Item Value Reference Range Interpretation Comments AST (test code = AST) 20 See_Comment N [Auto mated message] The system which ge nerated this result transmit rohit reference range : <=37. The reference range was not used to interpr et this result as reji l/abnormal. [facility] HospitalNkrgymmLEMCWKZIN8382-91-38 22:50:00 Test Item Value Reference Range Interpretation Comments Alk Phos (test code = Alk Phos) 67 39-136 N [facility] HospitalWhyvvxxZNJYDSPGP7736-21-69 22:50:00 Test Item Value Reference Range Interpretation Comments Albumin Lvl (test code = Albumin Lvl) 4.4 3.5-5.0 N [facility] HospitalDemrzrzNUNOJPRML5933-45-58 22:50:00 Test Item Value Reference Range Interpretation Comments Calcium Lvl (test code = Calcium Lvl) 9.9 8.5-10.5 N [facility] CenterRssoiraQAJYKWDVLF6904-61-46 22:50:00 Test Item Value Reference Range Interpretation Comments MPV (test code = MPV) 11.8 7.4-10.4 H [facility] CenterNfoaikoVCQQFZYGFJ3340-63-00 22:50:00 Test Item Value Reference Range Interpretation Comments MCHC (test code = MCHC) 35.9 32.0-36.0 N [facility] CenterHmdawyrOKNYBGGYHK6038-53-15 22:50:00 Test Item Value Reference Range Interpretation Comments MCH (test code = MCH) 31.2 pg 27.0-31.0 H [facility] CenterQzefrhhZXISTRUCBF3817-45-18 22:50:00 Test Item Value Reference Range Interpretation Comments Platelet (test code = Platelet) 189 133-450 N [facility] CenterSchemjxPCLQSDMQKC6973-51-32 22:50:00 Test Item Value Reference Range Interpretation Comments RDW (test code = RDW) 13.1 11.5-14.5 N [facility] CenterBfldzigINBOGIOOBO7443-38-44 22:50:00 Test Item Value Reference Range Interpretation Comments Hct (test code = Hct) 40.7 36.0-48.0 N [facility] CenterNsroybzQVURMXYECT6982-26-76 22:50:00 Test Item Value Reference Range Interpretation Comments Hgb (test code = Hgb) 14.6 12.0-16.0 N [facility] CenterTxvhqyhDSLXRKRQWR6684-67-16 22:50:00 Test Item Value Reference Range Interpretation Comments MCV (test code = MCV) 87.0 81.0-99.0 N [facility] CenterOvejsgwMJNXNBMXLL5622-96-09 22:50:00 Test Item Value Reference Range Interpretation Comments WBC (test code = WBC) 11.7 3.7-10.4 H [facility] CenterIdbtjgpTOSGVGURQZ2705-57-48 22:50:00 Test Item Value Reference Range Interpretation Comments RBC (test code = RBC) 4.68 4.20-5.40 N [facility] CenterUauxbnsHVDLRVZWMW1153-96-04 22:50:00 Test Item Value Reference Range Interpretation Comments Basophils # (test code 0.0 See_Comment N [Aut omated message] The = Basophils #) system which generated this result tra nsmitted reference range : <=0.2. The reference r leo was not used to int erpret this result as normal/abnormal . [facility] CenterSkomsmxXYRGNJLTQM7645-19-43 22:50:00 Test Item Value Reference Range Interpretation Comments Basophils (test code = 0.2 See_Comment N [Aut omated message] The Basophils) system which ge nerated this result tra nsmitted reference range : <=1.0. The reference r leo was not used to int erpret this result as normal/abnormal . [facility] CenterCpvbizvVRGQBSMDVD0827-35-35 22:50:00 Test Item Value Reference Range Interpretation Comments Eosinophils # (test code 0.0 See_Comment N [A utomated message] The = Eosinophils #) system whic h generated this result tra nsmitted reference range : <=0.5. The reference r leo was not used to int erpret this result as normal/abnormal . [facility] CenterMflywtlATNQPFWDVP6373-47-11 22:50:00 Test Item Value Reference Range Interpretation Comments Monocytes # (test code 0.4 See_Comment N [Aut omated message] The = Monocytes #) system which generated this result tra nsmitted reference range : <=0.8. The reference r leo was not used to int erpret this result as normal/abnormal . [facility] CenterGahhwbpQGKFKZXKUN8596-00-71 22:50:00 Test Item Value Reference Range Interpretation Comments Segs-Bands # (test code = Segs-Bands #) 10.6 1.5-8.1 H [facility] CenterVuniyrmHJBOSLYFGL2255-38-24 22:50:00 Test Item Value Reference Range Interpretation Comments Lymphocytes # (test code = Lymphocytes 0.7 1.0-5.5 L #) [facility] CenterSomvctbUMGXOPSZOR7463-25-73 22:50:00 Test Item Value Reference Range Interpretation Comments Monocytes (test code = Monocytes) 3.4 2.0-12.0 N [facility] CenterLabfduoLPLEOCUIOA7554-32-77 22:50:00 Test Item Value Reference Range Interpretation Comments Plt Morph (test code = Normal (03/14/2012 N Plt Morph) 17:50:00) [facility] CenterDxdtyurNQEWREXETR9586-23-31 22:50:00 Test Item Value Reference Range Interpretation Comments Lymphocytes (test code = Lymphocytes) 6.0 20.0-40.0 L [facility] CenterRmdaradQNSYWWOWMW3441-09-80 22:50:00 Test Item Value Reference Range Interpretation Comments Eosinophils (test code = 0.0 See_Comment N [A utomated message] The Eosinophils) system which ge nerated this result tra nsmitted reference range : <=4.0. The reference r leo was not used to int erpret this result as normal/abnormal . [facility] CenterWvgxonpVKYHYVQKQO9023-25-06 22:50:00 Test Item Value Reference Range Interpretation Comments Segs (test code = Segs) 90.4 45.0-75.0 H [facility] CenterFkrmsssCFZZZFKPJC6482-76-43 22:50:00 Test Item Value Reference Range Interpretation Comments RBC Morph (test code = Normal (03/14/2012 N RBC Morph) 17:50:00) [facility] HospitalDhlmdtoNMQCAMSVK4678-17-48 22:50:00 Test Item Value Reference Range Interpretation Comments S Preg (test code = S Negative *NA*(03/14/2012 Preg) 17:50:00) [facility] HospitalZsaxhhhMXICPNRCW1239-00-86 22:50:00 Test Item Value Reference Range Interpretation Comments Lipase Lvl (test code = Lipase Lvl) 45 73-393 L [facility] HospitalHhfnvqbMQWRYPRCZ9631-78-36 22:50:00 Test Item Value Reference Range Interpretation Comments A/G Ratio (test code = A/G Ratio) 1.2 0.7-1.6 N [facility] HospitalNujmrvdWSBJZXNRJ9693-26-79 22:50:00 Test Item Value Reference Range Interpretation Comments Globulin (test code = Globulin) 3.8 2.0-4.0 N [facility] HospitalSawwotgQYJGKURUJ1135-71-88 22:50:00 Test Item Value Reference Range Interpretation Comments B/C Ratio (test code = B/C Ratio) 21 6-25 N [facility] HospitalHctmpyuHJMLNAIOS3158-04-32 22:50:00 Test Item Value Reference Range Interpretation Comments AGAP (test code = AGAP) 16.8 10.0-20.0 N [facility] HospitalBlsrkbjCOPZLDZYJ2144-64-89 22:50:00 Test Item Value Reference Range Interpretation Comments Bili Total (test code = Bili Total) 1.1 0.2-1.3 N [facility] HospitalNsmdmkeHFSCRMOTR9774-25-20 22:50:00 Test Item Value Reference Range Interpretation Comments Total Protein (test code = Total 8.2 6.4-8.4 N Protein) [facility] HospitalNzayvjhFDARRZIZY8455-04-15 22:50:00 Test Item Value Reference Range Interpretation Comments Potassium Lvl (test code = Potassium 3.8 3.5-5.1 N Lvl) [facility] HospitalDwfuekqYLGZUQERI2722-77-63 22:50:00 Test Item Value Reference Range Interpretation Comments Creatinine Lvl (test code = Creatinine 0.7 0.5-1.4 N Lvl) [facility] HospitalYxeswivTKRZMMBCT7321-33-80 22:50:00 Test Item Value Reference Range Interpretation Comments Sodium Lvl (test code = Sodium Lvl) 139 135-145 N [facility] HospitalKpbqyloCEXOALJET5692-31-74 22:50:00 Test Item Value Reference Range Interpretation Comments Chloride Lvl (test code = Chloride Lvl) 99 95-109 N [facility] HospitalDoeqjxvVDGJJRAAF3957-97-18 22:50:00 Test Item Value Reference Range Interpretation Comments CO2 (test code = CO2) 27 24-32 N [facility] HospitalEirkznpWNERSCCJN2586-99-10 22:50:00 Test Item Value Reference Range Interpretation Comments Glucose Lvl (test code = Glucose Lvl) 301 70-99 H [facility] CenterWyyftacNCGUOXCYC6260-81-05 22:50:00 Test Item Value Reference Range Interpretation Comments BUN (test code = BUN) 15 7-22 N [facility] HospitalFharkknTVBPRFUMS3475-37-98 22:50:00 Test Item Value Reference Range Interpretation Comments ALT (test code = ALT) 24 See_Comment N [Auto mated message] The system which ge nerated this result transmit rohit reference range : <=65. The reference range was not used to interpr et this result as reji l/abnormal. [facility] CenterCngppcjAKEQPDHSC3323-65-15 22:50:00 Test Item Value Reference Range Interpretation Comments AST (test code = AST) 20 See_Comment N [Auto mated message] The system which ge nerated this result transmit rohit reference range : <=37. The reference range was not used to interpr et this result as reji l/abnormal. [facility] CenterQiikfukQNPTLLIXW4730-53-07 22:50:00 Test Item Value Reference Range Interpretation Comments Alk Phos (test code = Alk Phos) 67 39-136 N [facility] CenterElzpuirXFFZWDKZC0611-39-39 22:50:00 Test Item Value Reference Range Interpretation Comments Albumin Lvl (test code = Albumin Lvl) 4.4 3.5-5.0 N [facility] CenterHxzazhqIPFTPFKNE5110-16-65 22:50:00 Test Item Value Reference Range Interpretation Comments Calcium Lvl (test code = Calcium Lvl) 9.9 8.5-10.5 N [facility] CenterDjpzvlkFZNYEHMIQM0149-76-29 22:50:00 Test Item Value Reference Range Interpretation Comments MPV (test code = MPV) 11.8 7.4-10.4 H [facility] CenterFirveawONXBEKKMJY4690-50-07 22:50:00 Test Item Value Reference Range Interpretation Comments MCHC (test code = MCHC) 35.9 32.0-36.0 N [facility] CenterHyzoarxLQVIDZROOR1214-59-56 22:50:00 Test Item Value Reference Range Interpretation Comments MCH (test code = MCH) 31.2 pg 27.0-31.0 H [facility] CenterEhmiyyvULZSLYQIYI5440-11-02 22:50:00 Test Item Value Reference Range Interpretation Comments Platelet (test code = Platelet) 189 133-450 N [facility] CenterFmygivbIHNOMKPTAZ1245-16-58 22:50:00 Test Item Value Reference Range Interpretation Comments RDW (test code = RDW) 13.1 11.5-14.5 N [facility] CenterXbvwufgVCVWIASFWQ6752-56-21 22:50:00 Test Item Value Reference Range Interpretation Comments Hct (test code = Hct) 40.7 36.0-48.0 N [facility] CenterEpbveezODOMTROAKH8498-23-80 22:50:00 Test Item Value Reference Range Interpretation Comments Hgb (test code = Hgb) 14.6 12.0-16.0 N [facility] CenterTyknjtfBEFRFYAWIH5547-95-40 22:50:00 Test Item Value Reference Range Interpretation Comments MCV (test code = MCV) 87.0 81.0-99.0 N [facility] CenterPanzipxVWKVULJNJS7698-71-73 22:50:00 Test Item Value Reference Range Interpretation Comments WBC (test code = WBC) 11.7 3.7-10.4 H [facility] CenterMybddpkWSOOEIJCJO0164-32-12 22:50:00 Test Item Value Reference Range Interpretation Comments RBC (test code = RBC) 4.68 4.20-5.40 N [facility] CenterHnydcibDFTOFQDVDY7102-13-63 22:50:00 Test Item Value Reference Range Interpretation Comments Basophils # (test code 0.0 See_Comment N [Aut omated message] The = Basophils #) system which generated this result tra nsmitted reference range : <=0.2. The reference r leo was not used to int erpret this result as normal/abnormal . [facility] CenterDnhitisIBTVWILPPK6873-57-86 22:50:00 Test Item Value Reference Range Interpretation Comments Basophils (test code = 0.2 See_Comment N [Aut omated message] The Basophils) system which ge nerated this result tra nsmitted reference range : <=1.0. The reference r leo was not used to int erpret this result as normal/abnormal . [facility] CenterWclxwdiIHNMBPUJOK2204-91-60 22:50:00 Test Item Value Reference Range Interpretation Comments Eosinophils # (test code 0.0 See_Comment N [A utomated message] The = Eosinophils #) system whic h generated this result tra nsmitted reference range : <=0.5. The reference r leo was not used to int erpret this result as normal/abnormal . [facility] CenterWaihyybJMQGIGRCFB9200-07-57 22:50:00 Test Item Value Reference Range Interpretation Comments Monocytes # (test code 0.4 See_Comment N [Aut omated message] The = Monocytes #) system which generated this result tra nsmitted reference range : <=0.8. The reference r leo was not used to int erpret this result as normal/abnormal . [facility]ToxlvkkYGOTRYFRFX5680-53-14 22:50:00 Test Item Value Reference Range Interpretation Comments Segs-Bands # (test code = Segs-Bands #) 10.6 1.5-8.1 H [facility] CenterUpmvcikGGCIVOTWHD8359-98-51 22:50:00 Test Item Value Reference Range Interpretation Comments Lymphocytes # (test code = Lymphocytes 0.7 1.0-5.5 L #) [facility] CenterYjocgvkJBDCTWUASZ5534-16-80 22:50:00 Test Item Value Reference Range Interpretation Comments Monocytes (test code = Monocytes) 3.4 2.0-12.0 N [facility] CenterSevstzhZVMJDDDNDN0399-46-06 22:50:00 Test Item Value Reference Range Interpretation Comments Plt Morph (test code = Normal (03/14/2012 N Plt Morph) 17:50:00) [facility] CenterQrmsjfpPGQDZVTKXN7870-11-73 22:50:00 Test Item Value Reference Range Interpretation Comments Lymphocytes (test code = Lymphocytes) 6.0 20.0-40.0 L [facility] CenterJkmcjtkTIZFRMBYNT5589-57-82 22:50:00 Test Item Value Reference Range Interpretation Comments Eosinophils (test code = 0.0 See_Comment N [A utomated message] The Eosinophils) system which ge nerated this result tra nsmitted reference range : <=4.0. The reference r leo was not used to int erpret this result as normal/abnormal . [facility] CenterSjezmwmLZHVQLGFXN6697-95-48 22:50:00 Test Item Value Reference Range Interpretation Comments Segs (test code = Segs) 90.4 45.0-75.0 H [facility] CenterSwqvehoPQAWDPEIBV1096-66-56 22:50:00 Test Item Value Reference Range Interpretation Comments RBC Morph (test code = Normal (03/14/2012 N RBC Morph) 17:50:00) [facility] GLUCOSE [id number] 23:43:00 Test Item Value Reference Range Interpretation Comments Gluc POC Lifscn (test code = Gluc POC 167 70-99 H Lifscn) [facility] [id number] 23:43:00 Test Item Value Reference Range Interpretation Comments Comment1 (test code = Comment1) Notify RN/ [facility] GLUCOSE [id number] 23:43:00 Test Item Value Reference Range Interpretation Comments Comment2 (test code = Comment2) Sliding Scale [facility] [id number] 23:43:00 Test Item Value Reference Range Interpretation Comments Gluc POC Lifscn (test code = Gluc POC 167 70-99 H Lifscn) [facility] GLUCOSE [id number] 23:43:00 Test Item Value Reference Range Interpretation Comments Comment1 (test code = Comment1) Notify RN/ [facility] GLUCOSE [id number] 23:43:00 Test Item Value Reference Range Interpretation Comments Comment2 (test code = Comment2) Sliding Scale [facility] GLUCOSE [id number] 23:43:00 Test Item Value Reference Range Interpretation Comments Gluc POC Lifscn (test code = Gluc POC 167 70-99 H Lifscn) [facility] GLUCOSE [id number] 23:43:00 Test Item Value Reference Range Interpretation Comments Comment1 (test code = Comment1) Notify RN/ [facility] GLUCOSE [id number] 23:43:00 Test Item Value Reference Range Interpretation Comments Comment2 (test code = Comment2) Sliding Scale [facility] GLUCOSE [id number] 23:43:00 Test Item Value Reference Range Interpretation Comments Gluc POC Lifscn (test code = Gluc POC 167 70-99 H Lifscn) [facility] GLUCOSE [id number] 23:43:00 Test Item Value Reference Range Interpretation Comments Comment1 (test code = Comment1) Notify RN/ [facility] GLUCOSE [id number] 23:43:00 Test Item Value Reference Range Interpretation Comments Comment2 (test code = Comment2) Sliding Scale [facility] GLUCOSE [id number] 23:43:00 Test Item Value Reference Range Interpretation Comments Gluc POC Lifscn (test code = Gluc POC 167 70-99 H Lifscn) [facility] GLU[facility]SE [id number] 23:43:00 Test Item Value Reference Range Interpretation Comments Comment1 (test code = Comment1) [facility]ify RN/ [facility] [id number] 23:43:00 Test Item Value Reference Range Interpretation Comments Comment2 (test code = Comment2) Sliding Scale [facility] GLU[facility]SE [id number] 17:40:00 Test Item Value Reference Range Interpretation Comments Gluc POC Lifscn (test code = Gluc POC 189 70-99 H Lifscn) [facility] GLU[facility]SE [id number] 17:40:00 Test Item Value Reference Range Interpretation Comments Comment1 (test code = Comment1) Notify RN/ [facility] GLUCOSE [id number] 17:40:00 Test Item Value Reference Range Interpretation Comments Comment2 (test code = Comment2) Sliding Scale [facility] GLUCOSE [id number] 17:40:00 Test Item Value Reference Range Interpretation Comments Gluc POC Lifscn (test code = Gluc POC 189 70-99 H Lifscn) [facility] GLU[facility]SE [id number] 17:40:00 Test Item Value Reference Range Interpretation Comments Comment1 (test code = Comment1) Notify RN/ [facility] GLUCOSE [id number] 17:40:00 Test Item Value Reference Range Interpretation Comments Comment2 (test code = Comment2) Sliding Scale [facility] GLUCOSE [id number] 17:40:00 Test Item Value Reference Range Interpretation Comments Gluc POC Lifscn (test code = Gluc POC 189 70-99 H Lifscn) [facility] GLUCOSE [id number] 17:40:00 Test Item Value Reference Range Interpretation Comments Comment1 (test code = Comment1) Notify RN/ [facility] GLUCOSE [id number] 17:40:00 Test Item Value Reference Range Interpretation Comments Comment2 (test code = Comment2) Sliding Scale [facility] GLU[facility]SE [id number] 17:40:00 Test Item Value Reference Range Interpretation Comments Gluc POC Lifscn (test code = Gluc POC 189 70-99 H Lifscn) [facility] GLUCOSE [id number] 17:40:00 Test Item Value Reference Range Interpretation Comments Comment1 (test code = Comment1) [facility]/ [facility] [id number] 17:40:00 Test Item Value Reference Range Interpretation Comments Comment2 (test code = Comment2) Sliding Scale [facility] GLU[facility]SE [id number] 17:40:00 Test Item Value Reference Range Interpretation Comments Gluc POC Lifscn (test code = Gluc POC 189 70-99 H Lifscn) [facility] [id number] 17:40:00 Test Item Value Reference Range Interpretation Comments Comment1 (test code = Comment1) Notify RN/ [facility] [id number] 17:40:00 Test Item Value Reference Range Interpretation Comments Comment2 (test code = Comment2) Sliding Scale [facility]SE [id number] 13:34:00 Test Item Value Reference Range Interpretation Comments Comment2 (test code = Comment2) Sliding Scale [facility] GLU[facility] [id number] 13:34:00 Test Item Value Reference Range Interpretation Comments Gluc POC Lifscn (test code = Gluc POC 110 70-99 H Lifscn) [facility] [id number] 13:34:00 Test Item Value Reference Range Interpretation Comments Comment1 (test code = Comment1) Notify RN/ [facility] [id number] 13:34:00 Test Item Value Reference Range Interpretation Comments Comment2 (test code = Comment2) Sliding Scale [facility] GLU[facility] [id number] 13:34:00 Test Item Value Reference Range Interpretation Comments Gluc POC Lifscn (test code = Gluc POC 110 70-99 H Lifscn) [facility] GLU[facility]SE [id number] 13:34:00 Test Item Value Reference Range Interpretation Comments Comment1 (test code = Comment1) Notify RN/ [facility] [id number] 13:34:00 Test Item Value Reference Range Interpretation Comments Comment2 (test code = Comment2) Sliding Scale [facility] [id number] 13:34:00 Test Item Value Reference Range Interpretation Comments Gluc POC Lifscn (test code = Gluc POC 110 70-99 H Lifscn) [facility] GLUCOSE [id number] 13:34:00 Test Item Value Reference Range Interpretation Comments Comment1 (test code = Comment1) Notify RN/ [facility] GLUCOSE [id number] 13:34:00 Test Item Value Reference Range Interpretation Comments Comment2 (test code = Comment2) Sliding Scale [facility] GLUCOSE [id number] 13:34:00 Test Item Value Reference Range Interpretation Comments Gluc POC Lifscn (test code = Gluc POC 110 70-99 H Lifscn) [facility] GLUCOSE [id number] 13:34:00 Test Item Value Reference Range Interpretation Comments Comment1 (test code = Comment1) Notify RN/ [facility] GLUCOSE [id number] 13:34:00 Test Item Value Reference Range Interpretation Comments Comment2 (test code = Comment2) Sliding Scale [facility] GLUCOSE [id number] 13:34:00 Test Item Value Reference Range Interpretation Comments Gluc POC Lifscn (test code = Gluc POC 110 70-99 H Lifscn) [facility] GLUCOSE [id number] 13:34:00 Test Item Value Reference Range Interpretation Comments Comment1 (test code = Comment1) Notify RN/ [facility] CenterVsyfwdkDJNHYUWAV4023-49-25 00:00:00 Test Item Value Reference Range Interpretation Comments U Preg (test code = U Negative (11/28/2011 N Preg) 19:00:00) [facility] Cent[id number] 00:00:00 Test Item Value Reference Range Interpretation Comments Micro? (test code = Performed (11/28/2011 N Micro?) 19:00:00) [facility] CenterGdphoixSLMFJUEWYN9940-56-02 00:00:00 Test Item Value Reference Range Interpretation Comments UA Sq Epi (test code Occasional /LPF N = UA Sq Epi) (11/28/2011 19:00:00) [facility] CenterTjrwemeJPAAEFRJKZ3458-08-66 00:00:00 Test Item Value Reference Range Interpretation Comments UA RBC (test None Seen See_Comment N [Automated mes pastor] code = UA RBC) (11/28/2011 The system ich 19:00:00) generated this result transmitted ref erence range: <=2. The reference range was not used to int erpret this result as normal/abnormal . [facility] [id number] 00:00:00 Test Item Value Reference Range Interpretation Comments UA WBC (test code Occasional See_Comment [Automate d message] The = UA WBC) system which ge nerated this result tra nsmitted reference range : <=5. The reference range was not used to interpr et this result as normal/abnormal . [facility] CenterJtnhwprGXWYCHUXDT3990-84-17 00:00:00 Test Item Value Reference Range Interpretation Comments UA Protein (test code Negative mg/dL N = UA Protein) (11/28/2011 19:00:00) [facility] No[id number] 00:00:00 Test Item Value Reference Range Interpretation Comments UA pH (test code = UA pH) 7.0 1 5.0-8.0 N [facility] NorthwestSrzkulvCLUYGKCPCS0389-66-95 00:00:00 Test Item Value Reference Range Interpretation Comments UA Spec Grav (test code = UA Spec 1.020 1 N Grav) [facility] NorthwestDpybzczTMANKUYDFP2374-09-76 00:00:00 Test Item Value Reference Range Interpretation Comments UA Turbidity (test code = Clear (11/28/2011 N UA Turbidity) 19:00:00) [facility] NorthwestFkeorwiWBPPGWEWLC9155-68-05 00:00:00 Test Item Value Reference Range Interpretation Comments UA Color (test code = Yellow *NA*(11/28/2011 UA Color) 19:00:00) [facility] NorthwestUczmazrKABFOZPFJG3629-41-18 00:00:00 Test Item Value Reference Range Interpretation Comments UA Urobilinogen (test code = UA 0.2 0.1-1.0 N Urobilinogen) [facility] CenterRakldlzOXMHHYFMAY2024-14-17 00:00:00 Test Item Value Reference Range Interpretation Comments UA Blood (test code = Negative (11/28/2011 N UA Blood) 19:00:00) [facility] CenterObnlkboTUMAJGVANR9362-40-97 00:00:00 Test Item Value Reference Range Interpretation Comments UA Bili (test code = Negative *NA*(11/28/2011 UA Bili) 19:00:00) [facility] CenterGmqnqfoGAAOOPOQRN5272-94-87 00:00:00 Test Item Value Reference Range Interpretation Comments UA Ketones (test code = >=80 mg/dL A UA Ketones) *ABN*(11/28/2011 19:00:00) [facility] CenterBleizvrNWEQYIDUXP4373-49-07 00:00:00 Test Item Value Reference Range Interpretation Comments UA Glucose (test code = >=1000 mg/dL A UA Glucose) *ABN*(11/28/2011 19:00:00) [facility] CenterEryjczmCYIBWLAXPA0567-77-74 00:00:00 Test Item Value Reference Range Interpretation Comments UA Nitrite (test code Negative (11/28/2011 N = UA Nitrite) 19:00:00) [facility] CenterXwjkupeAVGOWBWNAR9051-65-10 00:00:00 Test Item Value Reference Range Interpretation Comments UA Leuk Est (test Negative (11/28/2011 N code = UA Leuk Est) 19:00:00) [facility] CenterDwarrsdWLVVEFUUA2143-22-90 00:00:00 Test Item Value Reference Range Interpretation Comments U Preg (test code = U Negative (11/28/2011 N Preg) 19:00:00) [facility] CenterBlygxemAUEBAFHMJI8838-41-37 00:00:00 Test Item Value Reference Range Interpretation Comments Micro? (test code = Performed (11/28/2011 N Micro?) 19:00:00) [facility] CenterZwlldphRPVYPPIDRD7738-32-17 00:00:00 Test Item Value Reference Range Interpretation Comments UA Sq Epi (test code Occasional /LPF N = UA Sq Epi) (11/28/2011 19:00:00) [facility] NorthwestVxnqwwiEQWJNVXBZN3915-05-45 00:00:00 Test Item Value Reference Range Interpretation Comments UA RBC (test None Seen See_Comment N [Automated mes pastor] code = UA RBC) (11/28/2011 The system wh ich 19:00:00) generated this result transmitted ref erence range: <=2. The reference range was not used to int erpret this result as normal/abnormal . [facility] CenterNxxztbdVHQVOWCSVT4675-23-43 00:00:00 Test Item Value Reference Range Interpretation Comments UA WBC (test code Occasional See_Comment [Automate d message] The = UA WBC) system which ge nerated this result tra nsmitted reference range : <=5. The reference range was not used to interpr et this result as normal/abnormal . [facility] NorthwestWujbzomSZXOTKDWCE3167-13-62 00:00:00 Test Item Value Reference Range Interpretation Comments UA Protein (test code Negative mg/dL N = UA Protein) (11/28/2011 19:00:00) [facility]CmtwdcvICALDYRMTM9794-06-02 00:00:00 Test Item Value Reference Range Interpretation Comments UA pH (test code = UA pH) 7.0 1 5.0-8.0 N [facility]woodLapoimfOIKHYMHDYJ8292-60-91 00:00:00 Test Item Value Reference Range Interpretation Comments UA Spec Grav (test code = UA Spec 1.020 1 N Grav) [facility]woodDassoriXOQFENACXC9125-32-75 00:00:00 Test Item Value Reference Range Interpretation Comments UA Turbidity (test code = Clear (11/28/2011 N UA Turbidity) 19:00:00) [facility]woodRliqofaEEULMWHUEP3045-76-75 00:00:00 Test Item Value Reference Range Interpretation Comments UA Color (test code = Yellow *NA*(11/28/2011 UA Color) 19:00:00) [facility]woodTdpgvopGXBDREVBTO0973-91-16 00:00:00 Test Item Value Reference Range Interpretation Comments UA Urobilinogen (test code = UA 0.2 0.1-1.0 N Urobilinogen) [facility]woodChiyzyfWBFGSQRSSR7656-66-24 00:00:00 Test Item Value Reference Range Interpretation Comments UA Blood (test code = Negative (11/28/2011 N UA Blood) 19:00:00) [facility]woodDbqrnnvPPTRNJVNWY7881-42-20 00:00:00 Test Item Value Reference Range Interpretation Comments UA Bili (test code = Negative *NA*(11/28/2011 UA Bili) 19:00:00) [facility]woodCqpskzcSVYRXKILDI5361-36-17 00:00:00 Test Item Value Reference Range Interpretation Comments UA Ketones (test code = >=80 mg/dL A UA Ketones) *ABN*(11/28/2011 19:00:00) [facility]woodDbyqtkoHWTYWGQEVO1509-26-08 00:00:00 Test Item Value Reference Range Interpretation Comments UA Glucose (test code = >=1000 mg/dL A UA Glucose) *ABN*(11/28/2011 19:00:00) [facility]woodDnwtxtxRJBGXRLPQK6149-82-68 00:00:00 Test Item Value Reference Range Interpretation Comments UA Nitrite (test code Negative (11/28/2011 N = UA Nitrite) 19:00:00) [facility] CenterZhoyrimCALMSKNYML9264-96-02 00:00:00 Test Item Value Reference Range Interpretation Comments UA Leuk Est (test Negative (11/28/2011 N code = UA Leuk Est) 19:00:00) [facility] CenterTjgsqirAABDUJDYY1895-20-19 00:00:00 Test Item Value Reference Range Interpretation Comments U Preg (test code = U Negative (11/28/2011 N Preg) 19:00:00) [facility] CenterXxhamkjCLFJBLEPOD6743-78-49 00:00:00 Test Item Value Reference Range Interpretation Comments Micro? (test code = Performed (11/28/2011 N Micro?) 19:00:00) [facility] NorthwestFbphcznYJFMBDGFPG2460-69-06 00:00:00 Test Item Value Reference Range Interpretation Comments UA Sq Epi (test code Occasional /LPF N = UA Sq Epi) (11/28/2011 19:00:00) [facility] CenterEwmiafuHLEQOAHRDD6240-88-84 00:00:00 Test Item Value Reference Range Interpretation Comments UA RBC (test None Seen See_Comment N [Automated mes pastor] code = UA RBC) (11/28/2011 The system ich 19:00:00) generated this result transmitted ref erence range: <=2. The reference range was not used to int erpret this result as normal/abnormal . [facility] CenterMexhqgiYMNCTBYQTM8652-14-99 00:00:00 Test Item Value Reference Range Interpretation Comments UA WBC (test code Occasional See_Comment [Automate d message] The = UA WBC) system which ge nerated this result tra nsmitted reference range : <=5. The reference range was not used to interpr et this result as normal/abnormal . [facility] CenterSbgsfmsCCOEHMNDAF0117-44-65 00:00:00 Test Item Value Reference Range Interpretation Comments UA Protein (test code Negative mg/dL N = UA Protein) (11/28/2011 19:00:00) [facility] CenterEskgxpeUVFECXRAGV1338-37-09 00:00:00 Test Item Value Reference Range Interpretation Comments UA pH (test code = UA pH) 7.0 1 5.0-8.0 N [facility] CenterZrkzuszDNHSOZTQYN2303-49-15 00:00:00 Test Item Value Reference Range Interpretation Comments UA Spec Grav (test code = UA Spec 1.020 1 N Grav) [facility] NorthwestCjnxbfrNTNJRKQDLK8012-81-80 00:00:00 Test Item Value Reference Range Interpretation Comments UA Turbidity (test code = Clear (11/28/2011 N UA Turbidity) 19:00:00) [facility] NorthwestBcokbebJZVVFEWWCG7081-62-82 00:00:00 Test Item Value Reference Range Interpretation Comments UA Color (test code = Yellow *NA*(11/28/2011 UA Color) 19:00:00) [facility] NorthwestGiqufyvDXQIOLXNAX1334-87-37 00:00:00 Test Item Value Reference Range Interpretation Comments UA Urobilinogen (test code = UA 0.2 0.1-1.0 N Urobilinogen) [facility] NorthwestRdeepvzBLIBAHAOJR3724-63-28 00:00:00 Test Item Value Reference Range Interpretation Comments UA Blood (test code = Negative (11/28/2011 N UA Blood) 19:00:00) [facility] NorthwestYuvuexbHYSCILRPLP1360-79-53 00:00:00 Test Item Value Reference Range Interpretation Comments UA Bili (test code = Negative *NA*(11/28/2011 UA Bili) 19:00:00) [facility] CenterJnwvanjACSZOYDYZQ0624-56-77 00:00:00 Test Item Value Reference Range Interpretation Comments UA Ketones (test code = >=80 mg/dL A UA Ketones) *ABN*(11/28/2011 19:00:00) [facility] NorthwestZqmvnbqBXBPUASKTG2710-18-49 00:00:00 Test Item Value Reference Range Interpretation Comments UA Glucose (test code = >=1000 mg/dL A UA Glucose) *ABN*(11/28/2011 19:00:00) [facility] NorthwestOoreksjYSOUITOEIM5415-39-97 00:00:00 Test Item Value Reference Range Interpretation Comments UA Nitrite (test code Negative (11/28/2011 N = UA Nitrite) 19:00:00) [facility] NorthwestXmdlijxUMVFAXSHXH4903-18-32 00:00:00 Test Item Value Reference Range Interpretation Comments UA Leuk Est (test Negative (11/28/2011 N code = UA Leuk Est) 19:00:00) [facility] CenterMggveghTOEPRDLTS6029-87-69 00:00:00 Test Item Value Reference Range Interpretation Comments U Preg (test code = U Negative (11/28/2011 N Preg) 19:00:00) [facility] NorthwestHtpvoexFJJATTCGOE4115-80-07 00:00:00 Test Item Value Reference Range Interpretation Comments Micro? (test code = Performed (11/28/2011 N Micro?) 19:00:00) [facility] NorthwestIxtfiibEUNLFHHARB5669-02-52 00:00:00 Test Item Value Reference Range Interpretation Comments UA Sq Epi (test code Occasional /LPF N = UA Sq Epi) (11/28/2011 19:00:00) [facility] NorthwestScmhjreQJJAUHLXMK2145-25-12 00:00:00 Test Item Value Reference Range Interpretation Comments UA RBC (test None Seen See_Comment N [Automated mes pastor] code = UA RBC) (11/28/2011 The system wh ich 19:00:00) generated this result transmitted ref erence range: <=2. The reference range was not used to int erpret this result as normal/abnormal . [facility] NorthwestUqbhbpqLOVHFVFYHT8577-31-88 00:00:00 Test Item Value Reference Range Interpretation Comments UA WBC (test code Occasional See_Comment [Automate d message] The = UA WBC) system which ge nerated this result tra nsmitted reference range : <=5. The reference range was not used to interpr et this result as normal/abnormal . [facility] NorthwestMbjgxffYJPXXURXGV4030-00-39 00:00:00 Test Item Value Reference Range Interpretation Comments UA Protein (test code Negative mg/dL N = UA Protein) (11/28/2011 19:00:00) [facility] NorthwestXprqcgkQKGLIBPWGW0753-67-61 00:00:00 Test Item Value Reference Range Interpretation Comments UA pH (test code = UA pH) 7.0 1 5.0-8.0 N [facility] NorthwestUfcccenVVUQWEJDSB5984-59-66 00:00:00 Test Item Value Reference Range Interpretation Comments UA Spec Grav (test code = UA Spec 1.020 1 N Grav) [facility] NorthwestBcmlxntUWULUCMPGP7167-04-28 00:00:00 Test Item Value Reference Range Interpretation Comments UA Turbidity (test code = Clear (11/28/2011 N UA Turbidity) 19:00:00) [facility] NorthwestRidahpbKOEKBJZESQ0924-40-28 00:00:00 Test Item Value Reference Range Interpretation Comments UA Color (test code = Yellow *NA*(11/28/2011 UA Color) 19:00:00) [facility] CenterTkkovyxDMVFBUZUCG9192-27-73 00:00:00 Test Item Value Reference Range Interpretation Comments UA Urobilinogen (test code = UA 0.2 0.1-1.0 N Urobilinogen) [facility] NorthwestWlpcdibHXALMDFJOD9296-76-72 00:00:00 Test Item Value Reference Range Interpretation Comments UA Blood (test code = Negative (11/28/2011 N UA Blood) 19:00:00) [facility] CenterQjasvufJBIXVCPQKD8956-44-03 00:00:00 Test Item Value Reference Range Interpretation Comments UA Bili (test code = Negative *NA*(11/28/2011 UA Bili) 19:00:00) [facility] CenterXwyloxoLMRMUAMIIS2094-55-09 00:00:00 Test Item Value Reference Range Interpretation Comments UA Ketones (test code = >=80 mg/dL A UA Ketones) *ABN*(11/28/2011 19:00:00) [facility]BfmczgkTJDAGMJBAQ8690-01-96 [facility]:00:00 Test Item Value Reference Range Interpretation Comments UA Glucose (test code = >=1000 mg/dL A UA Glucose) *ABN*(11/28/2011 19:00:00) [facility] CenterUipaopgBPOGJQKTVZ8254-96-93 00:00:00 Test Item Value Reference Range Interpretation Comments UA Nitrite (test code Negative (11/28/2011 N = UA Nitrite) 19:00:00) [facility] CenterDesslmoQPXCHKQYEX9132-28-32 00:00:00 Test Item Value Reference Range Interpretation Comments UA Leuk Est (test Negative (11/28/2011 N code = UA Leuk Est) 19:00:00) [facility] CenterOvdjrcoGPUSYMXYV2751-23-26 00:00:00 Test Item Value Reference Range Interpretation Comments U Preg (test code = U Negative (11/28/2011 N Preg) 19:00:00) [facility] CenterWfgmlynBWUIMSTTHS4370-99-44 00:00:00 Test Item Value Reference Range Interpretation Comments Micro? (test code = Performed (11/28/2011 N Micro?) 19:00:00) [facility] CenterYavrsoeLNIOBIAVCK5650-44-37 00:00:00 Test Item Value Reference Range Interpretation Comments UA Sq Epi (test code Occasional /LPF N = UA Sq Epi) (11/28/2011 19:00:00) [facility] CenterDtmkzaqPIFBNRPNPR6050-67-59 00:00:00 Test Item Value Reference Range Interpretation Comments UA RBC (test None Seen See_Comment N [Automated mes pastor] code = UA RBC) (11/28/2011 The system wh ich 19:00:00) generated this result transmitted ref erence range: <=2. The reference range was not used to int erpret this result as normal/abnormal . [facility] NorthwestKnialvqOIHNMKYTPD9292-03-51 00:00:00 Test Item Value Reference Range Interpretation Comments UA WBC (test code Occasional See_Comment [Automate d message] The = UA WBC) system which ge nerated this result tra nsmitted reference range : <=5. The reference range was not used to interpr et this result as normal/abnormal . [facility] NorthwestIbfpdxkXAHHSZDWSI5896-21-07 00:00:00 Test Item Value Reference Range Interpretation Comments UA Protein (test code Negative mg/dL N = UA Protein) (11/28/2011 19:00:00) [facility] NorthwestFlafsqxSPYCQRHWLZ0021-17-78 00:00:00 Test Item Value Reference Range Interpretation Comments UA pH (test code = UA pH) 7.0 1 5.0-8.0 N [facility] NorthwestGpblonqJSIEMZMXUO9499-68-11 00:00:00 Test Item Value Reference Range Interpretation Comments UA Spec Grav (test code = UA Spec 1.020 1 N Grav) [facility] NorthwestMtyytxxHHOQCNIXMG2225-91-58 00:00:00 Test Item Value Reference Range Interpretation Comments UA Turbidity (test code = Clear (11/28/2011 N UA Turbidity) 19:00:00) [facility] NorthwestNzvdfibAZRKQZHGSR4345-33-45 00:00:00 Test Item Value Reference Range Interpretation Comments UA Color (test code = Yellow *NA*(11/28/2011 UA Color) 19:00:00) [facility] NorthwestPlnzddbCHFBYNIBHM8846-46-12 00:00:00 Test Item Value Reference Range Interpretation Comments UA Urobilinogen (test code = UA 0.2 0.1-1.0 N Urobilinogen) [facility] NorthwestSwxvbmnDJPTFSFBMO9465-62-57 00:00:00 Test Item Value Reference Range Interpretation Comments UA Blood (test code = Negative (11/28/2011 N UA Blood) 19:00:00) [facility] CenterMrminmtCMGBIVWLNO1348-15-17 00:00:00 Test Item Value Reference Range Interpretation Comments UA Bili (test code = Negative *NA*(11/28/2011 UA Bili) 19:00:00) [facility] NorthwestJsfyywuHMJZNNVIXF1728-94-11 00:00:00 Test Item Value Reference Range Interpretation Comments UA Ketones (test code = >=80 mg/dL A UA Ketones) *ABN*(11/28/2011 19:00:00) [facility] CenterCbqyzlkXFEKDMIDPU9433-12-73 00:00:00 Test Item Value Reference Range Interpretation Comments UA Glucose (test code = >=1000 mg/dL A UA Glucose) *ABN*(11/28/2011 19:00:00) [facility] NorthwestYfnemcjVFOGQVBGTS9439-14-43 00:00:00 Test Item Value Reference Range Interpretation Comments UA Nitrite (test code Negative (11/28/2011 N = UA Nitrite) 19:00:00) [facility] CenterJznjgqbRQVZDCWSZO9648-82-99 00:00:00 Test Item Value Reference Range Interpretation Comments UA Leuk Est (test Negative (11/28/2011 N code = UA Leuk Est) 19:00:00) [facility]RmqopcgHJQDOLINO3109-95-29 20:41:00 Test Item Value Reference Range Interpretation Comments pO2 Roberth (test code = pO2 Roberth) 60 20-49 H [facility] HospitalKrauifaLENJHXQJZ2851-98-36 20:41:00 Test Item Value Reference Range Interpretation Comments pCO2 Roberth (test code = pCO2 Roberth) 41 38-52 N [facility] HospitalKwueiirNRGATHSMQ1745-37-17 20:41:00 Test Item Value Reference Range Interpretation Comments pH Roberth (test code = pH Roberth) 7.45 7.28-7.42 H [facility] HospitalCqmocbaNMDMUTUIV8215-52-09 20:41:00 Test Item Value Reference Range Interpretation Comments Temp Roberth (test code = Temp Roberth) 37.0 [facility] HospitalNaefqzePTSDMVDVV8133-85-40 20:41:00 Test Item Value Reference Range Interpretation Comments O2 Sat Roberth (test code = O2 Sat Roberth) 92.0 40.0-70.0 H [facility] HospitalUapguwkHUXLDFNBD9608-54-69 20:41:00 Test Item Value Reference Range Interpretation Comments BE Roberth (test code = 4 See_Comment H [Automa rohit message] The BE Roberth) system which ge nerated this result transmit rohit reference range : <=2. The reference range was not used to interpr et this result as reji l/abnormal. [facility] CenterJroznjnDYPSFYCUK6112-48-99 20:41:00 Test Item Value Reference Range Interpretation Comments HCO3 Roberth (test code = HCO3 Roberth) 28.5 22.0-26.0 H [facility] HospitalXehrouzUQEJEAMCG8959-24-89 20:41:00 Test Item Value Reference Range Interpretation Comments pO2 Roberth (test code = pO2 Roberth) 60 20-49 H [facility] HospitalCgxzjavXRTPOOMSC7775-65-68 20:41:00 Test Item Value Reference Range Interpretation Comments pCO2 Roberth (test code = pCO2 Roberth) 41 38-52 N [facility] HospitalQdvdmgvYUPSBGFHK4662-30-53 20:41:00 Test Item Value Reference Range Interpretation Comments pH Roberth (test code = pH Roberth) 7.45 7.28-7.42 H [facility] HospitalNvhnffvZQEBEQZHC3522-91-38 20:41:00 Test Item Value Reference Range Interpretation Comments Temp Roberth (test code = Temp Roberth) 37.0 [facility] HospitalCzzxwxwOAEALEIDE8735-86-60 20:41:00 Test Item Value Reference Range Interpretation Comments O2 Sat Roberth (test code = O2 Sat Roberth) 92.0 40.0-70.0 H [facility] HospitalHyfgibzJIEKMKIKC6602-79-86 20:41:00 Test Item Value Reference Range Interpretation Comments BE Roberth (test code = 4 See_Comment H [Automa rohit message] The BE Roberth) system which ge nerated this result transmit rohit reference range : <=2. The reference range was not used to interpr et this result as reji l/abnormal. [facility] CenterGnqpjzdUVWUHSBUE3640-43-22 20:41:00 Test Item Value Reference Range Interpretation Comments HCO3 Roberth (test code = HCO3 Roberth) 28.5 22.0-26.0 H [facility] HospitalMiclwlrIRQZYRHYR3108-09-56 20:41:00 Test Item Value Reference Range Interpretation Comments pO2 Roberth (test code = pO2 Roberth) 60 20-49 H [facility] HospitalSvmgvbhHKHZKIXLA7751-31-02 20:41:00 Test Item Value Reference Range Interpretation Comments pCO2 Roberth (test code = pCO2 Roberth) 41 38-52 N [facility] HospitalPcfqdgzMNIPCHXAG2110-98-33 20:41:00 Test Item Value Reference Range Interpretation Comments pH Roberth (test code = pH Roberth) 7.45 7.28-7.42 H [facility] HospitalIotsgczVCGCKDMWA1937-14-88 20:41:00 Test Item Value Reference Range Interpretation Comments Temp Roberth (test code = Temp Roberth) 37.0 [facility] HospitalIovnivyKYUQKHIPD0397-12-33 20:41:00 Test Item Value Reference Range Interpretation Comments O2 Sat Roberth (test code = O2 Sat Roberth) 92.0 40.0-70.0 H [facility] HospitalMbfjwtsFAWDJUDKW9834-23-72 20:41:00 Test Item Value Reference Range Interpretation Comments BE Roberth (test code = 4 See_Comment H [Automa rohit message] The BE Roberth) system which ge nerated this result transmit rohit reference range : <=2. The reference range was not used to interpr et this result as reji l/abnormal. [facility] HospitalDxpwdehCEYRVILXE9267-78-44 20:41:00 Test Item Value Reference Range Interpretation Comments HCO3 Roberth (test code = HCO3 Roberth) 28.5 22.0-26.0 H [facility] HospitalThaftpxLEWJPCNUV1402-91-33 20:41:00 Test Item Value Reference Range Interpretation Comments pO2 Roberth (test code = pO2 Roberth) 60 20-49 H [facility] HospitalBfejsmnCGATPYJUE1165-33-05 20:41:00 Test Item Value Reference Range Interpretation Comments pCO2 Roberth (test code = pCO2 Roberth) 41 38-52 N [facility] HospitalBtekmhkKSVPKJKEV3800-56-65 20:41:00 Test Item Value Reference Range Interpretation Comments pH Roberth (test code = pH Roberth) 7.45 7.28-7.42 H [facility] HospitalHvriixhUCMXNEHYF8102-81-21 20:41:00 Test Item Value Reference Range Interpretation Comments Temp Roberth (test code = Temp Roberth) 37.0 [facility] HospitalMdlibrdXETSKAEBC3659-08-62 20:41:00 Test Item Value Reference Range Interpretation Comments O2 Sat Roberth (test code = O2 Sat Roberth) 92.0 40.0-70.0 H [facility] HospitalOjhbbkaKEQCTGEEY1669-70-70 20:41:00 Test Item Value Reference Range Interpretation Comments BE Roberth (test code = 4 See_Comment H [Automa rohit message] The BE Roberth) system which ge nerated this result transmit rohit reference range : <=2. The reference range was not used to interpr et this result as reji l/abnormal. [facility] HospitalOibipavTGWTYPEQX5815-33-85 20:41:00 Test Item Value Reference Range Interpretation Comments HCO3 Roberth (test code = HCO3 Roberth) 28.5 22.0-26.0 H [facility] HospitalGeozpyvJKKVAINUD2808-75-73 20:41:00 Test Item Value Reference Range Interpretation Comments pO2 Roberth (test code = pO2 Roberth) 60 20-49 H [facility] HospitalLjqqyxgVDRPWMPWH7546-02-41 20:41:00 Test Item Value Reference Range Interpretation Comments pCO2 Roberth (test code = pCO2 Roberth) 41 38-52 N [facility] HospitalFqdvfchFRNUJUWVO6766-25-79 20:41:00 Test Item Value Reference Range Interpretation Comments pH Roberth (test code = pH Roberth) 7.45 7.28-7.42 H [facility] HospitalSmtrqenUDGTURTNQ5930-81-67 20:41:00 Test Item Value Reference Range Interpretation Comments Temp Roberth (test code = Temp Roberth) 37.0 [facility] HospitalJlgyqxtBRAZXSBGJ7275-75-95 20:41:00 Test Item Value Reference Range Interpretation Comments O2 Sat Roberth (test code = O2 Sat Roberth) 92.0 40.0-70.0 H [facility] HospitalGtgoweiOKEDXLUTB2015-43-06 20:41:00 Test Item Value Reference Range Interpretation Comments BE Roberth (test code = 4 See_Comment H [Automa rohit message] The BE Roberth) system which ge nerated this result transmit rohit reference range : <=2. The reference range was not used to interpr et this result as reji l/abnormal. [facility] HospitalCcryjzaOBEEDLPGA5649-70-43 20:41:00 Test Item Value Reference Range Interpretation Comments HCO3 Roberth (test code = HCO3 Roberth) 28.5 22.0-26.0 H [facility] HospitalByjlcvmXWJLFFTHA4162-57-37 20:00:00 Test Item Value Reference Range Interpretation Comments Lactic Acid Lvl (test code = Lactic 1.6 0.5-2.2 N Acid Lvl) [facility] HospitalKwnpnhoGXQOTOPPC1602-13-92 20:00:00 Test Item Value Reference Range Interpretation Comments Lipase Lvl (test code = Lipase Lvl) 125 73-393 N [facility] HospitalMwhupoeUDHNEZKJI8917-27-26 20:00:00 Test Item Value Reference Range Interpretation Comments Albumin Lvl (test code = Albumin Lvl) 4.2 3.5-5.0 N [facility] HospitalCjygaviNBYSIKCJY8014-60-13 20:00:00 Test Item Value Reference Range Interpretation Comments CO2 (test code = CO2) 23 24-32 L [facility] HospitalIpszhjzUGVSXJOGZ9999-05-43 20:00:00 Test Item Value Reference Range Interpretation Comments Chloride Lvl (test code = Chloride Lvl) 98 95-109 N [facility] HospitalMzmnhljIPDKLYSXZ8942-79-81 20:00:00 Test Item Value Reference Range Interpretation Comments Potassium Lvl (test code = Potassium 3.8 3.5-5.1 N Lvl) [facility] HospitalEkzsofyLIQXKMHQN8903-54-39 20:00:00 Test Item Value Reference Range Interpretation Comments Sodium Lvl (test code = Sodium Lvl) 138 135-145 N [facility] HospitalMbyzybrUOBTIFOIV9968-35-98 20:00:00 Test Item Value Reference Range Interpretation Comments Creatinine Lvl (test code = Creatinine 0.7 0.5-1.4 N Lvl) [facility] HospitalWpwwqyqXGRTNLKEX6005-95-09 20:00:00 Test Item Value Reference Range Interpretation Comments BUN (test code = BUN) 9 7-22 N [facility] HospitalFlblrqgHMAXYSKPO0827-83-96 20:00:00 Test Item Value Reference Range Interpretation Comments Glucose Lvl (test code = Glucose Lvl) 269 70-99 H [facility] HospitalHqzctpvGEMHSSAZG0322-56-81 20:00:00 Test Item Value Reference Range Interpretation Comments B/C Ratio (test code = B/C Ratio) 13 6-25 N [facility] HospitalMatnijgKJQAZXXXS3477-87-71 20:00:00 Test Item Value Reference Range Interpretation Comments AGAP (test code = AGAP) 20.8 10.0-20.0 H [facility] HospitalFtiqcehRUOQYPMRB1339-62-52 20:00:00 Test Item Value Reference Range Interpretation Comments Calcium Lvl (test code = Calcium Lvl) 9.3 8.5-10.5 N [facility] HospitalAmshnmyZECEHSEMY2700-47-89 20:00:00 Test Item Value Reference Range Interpretation Comments Total Protein (test code = Total 6.7 6.4-8.4 N Protein) [facility] HospitalOsevnoyUPNXMVGSV6913-36-89 20:00:00 Test Item Value Reference Range Interpretation Comments A/G Ratio (test code = A/G Ratio) 1.7 0.7-1.6 H [facility] HospitalBmdfaywPQNUWGFIO0881-56-81 20:00:00 Test Item Value Reference Range Interpretation Comments Globulin (test code = Globulin) 2.5 2.0-4.0 N [facility] HospitalEylxaawMDBDLLLTL3016-58-81 20:00:00 Test Item Value Reference Range Interpretation Comments AST (test code = AST) 18 See_Comment N [Auto mated message] The system which ge nerated this result transmit rohit reference range : <=37. The reference range was not used to interpr et this result as reji l/abnormal. [facility] HospitalHhhyzvvRMAMMABNK1639-39-18 20:00:00 Test Item Value Reference Range Interpretation Comments Alk Phos (test code = Alk Phos) 62 39-136 N [facility] HospitalOdlnzbhRJUXEPNUE8614-24-55 20:00:00 Test Item Value Reference Range Interpretation Comments ALT (test code = ALT) 32 See_Comment N [Auto mated message] The system which ge nerated this result transmit rohit reference range : <=65. The reference range was not used to interpr et this result as reji l/abnormal. [facility] HospitalBaspliaERCUBALWU2197-80-33 20:00:00 Test Item Value Reference Range Interpretation Comments Bili Total (test code = Bili Total) 0.7 0.2-1.3 N [facility]RpgylzvEPOFIZMPFB6797-95-94 20:00:00 Test Item Value Reference Range Interpretation Comments Anisocyte (test code = 1+ *ABN*(11/28/2011 A Anisocyte) 15:00:00) [facility] CenterGxryvrjXLRZKTPRJW6530-44-12 20:00:00 Test Item Value Reference Range Interpretation Comments Monocytes # (test code 0.1 See_Comment N [Aut omated message] The = Monocytes #) system which generated this result tra nsmitted reference range : <=0.8. The reference r leo was not used to int erpret this result as normal/abnormal . [facility] CenterHmgrwkdIPUJUDCXGW0261-33-71 20:00:00 Test Item Value Reference Range Interpretation Comments Eosinophils # (test code 0.0 See_Comment N [A utomated message] The = Eosinophils #) system whic h generated this result tra nsmitted reference range : <=0.5. The reference r leo was not used to int erpret this result as normal/abnormal . [facility] CenterHiqzmjuNWQUZPOMSH2075-62-70 20:00:00 Test Item Value Reference Range Interpretation Comments Basophils # (test code 0.0 See_Comment N [Aut omated message] The = Basophils #) system which generated this result tra nsmitted reference range : <=0.2. The reference r leo was not used to int erpret this result as normal/abnormal . [facility] CenterIibpagiMKPKZGTLCR6710-77-27 20:00:00 Test Item Value Reference Range Interpretation Comments Neut Vac (test code = Slight *ABN*(11/28/2011 A Neut Vac) 15:00:00) [facility] CenterRjzjkonKRZLVXRFCU2193-27-12 20:00:00 Test Item Value Reference Range Interpretation Comments Large Plt (test code = Slight *ABN*(11/28/2011 A Large Plt) 15:00:00) [facility] CenterEfjuwepBNFQFFDYNX7451-06-57 20:00:00 Test Item Value Reference Range Interpretation Comments Segs-Bands # (test code = Segs-Bands #) 5.7 1.5-8.1 N [facility] CenterIeffqbhSMQFICAGZZ2838-71-24 20:00:00 Test Item Value Reference Range Interpretation Comments Lymphocytes # (test code = Lymphocytes 0.8 1.0-5.5 L #) [facility] CenterGyrvymqDEXLKZDACW0301-11-32 20:00:00 Test Item Value Reference Range Interpretation Comments Eosinophils (test code = 0.2 See_Comment N [A utomated message] The Eosinophils) system which ge nerated this result tra nsmitted reference range : <=4.0. The reference r leo was not used to int erpret this result as normal/abnormal . [facility] CenterSlmlalfHGMDUQIWAJ0523-89-06 20:00:00 Test Item Value Reference Range Interpretation Comments Basophils (test code = 0.0 See_Comment N [Aut omated message] The Basophils) system which ge nerated this result tra nsmitted reference range : <=1.0. The reference r leo was not used to int erpret this result as normal/abnormal . [facility] CenterAgmvtiuECOFUGLCGP5228-00-47 20:00:00 Test Item Value Reference Range Interpretation Comments Monocytes (test code = Monocytes) 1.9 2.0-12.0 L [facility] CenterHqjfijtOVGQKHSLOG4281-94-24 20:00:00 Test Item Value Reference Range Interpretation Comments Segs (test code = Segs) 86.2 45.0-75.0 H [facility] CenterQozlmsbUSNCLHNRWO2979-75-10 20:00:00 Test Item Value Reference Range Interpretation Comments Lymphocytes (test code = Lymphocytes) 11.7 20.0-40.0 L [facility] CenterBmmiqggJCFXGBEMII7693-96-12 20:00:00 Test Item Value Reference Range Interpretation Comments MPV (test code = MPV) 10.8 7.4-10.4 H [facility] CenterItghjqkUNOFEQVALT7728-90-04 20:00:00 Test Item Value Reference Range Interpretation Comments Platelet (test code = Platelet) 161 133-450 N [facility] CenterVicvkteZZXCTSVUKW4225-08-82 20:00:00 Test Item Value Reference Range Interpretation Comments MCHC (test code = MCHC) 35.6 32.0-36.0 N [facility] CenterYiuvkgdYOBJWGMBFQ9989-10-42 20:00:00 Test Item Value Reference Range Interpretation Comments RDW (test code = RDW) 12.4 11.5-14.5 N [facility] CenterIgrrwlbARUYJHWWBC7160-46-12 20:00:00 Test Item Value Reference Range Interpretation Comments MCH (test code = MCH) 30.7 pg 27.0-31.0 N [facility] CenterJqxqshdVDVCWPSBRS3252-02-89 20:00:00 Test Item Value Reference Range Interpretation Comments MCV (test code = MCV) 86.1 81.0-99.0 N [facility] CenterGyflheaHILRVURYKG8045-59-98 20:00:00 Test Item Value Reference Range Interpretation Comments Hct (test code = Hct) 33.6 36.0-48.0 L [facility] CenterFocbaypGNNAURBCUO9836-46-71 20:00:00 Test Item Value Reference Range Interpretation Comments Hgb (test code = Hgb) 12.0 12.0-16.0 N [facility] CenterYrcdkbdWLVGSPOARL9975-11-45 20:00:00 Test Item Value Reference Range Interpretation Comments RBC (test code = RBC) 3.90 4.20-5.40 L [facility] CenterGztrjbcLETUIPZSOW5383-50-00 20:00:00 Test Item Value Reference Range Interpretation Comments WBC (test code = WBC) 6.6 3.7-10.4 N [facility] CenterRuvhdcjNIGKIJNXD7162-32-36 20:00:00 Test Item Value Reference Range Interpretation Comments Lactic Acid Lvl (test code = Lactic 1.6 0.5-2.2 N Acid Lvl) [facility] HospitalTwbfdmhJSASVKWNO5944-57-07 20:00:00 Test Item Value Reference Range Interpretation Comments Lipase Lvl (test code = Lipase Lvl) 125 73-393 N [facility] HospitalLismzzsRRNWEPZVR6564-67-56 20:00:00 Test Item Value Reference Range Interpretation Comments Albumin Lvl (test code = Albumin Lvl) 4.2 3.5-5.0 N [facility] HospitalYdecoqdIPFMKNPSR1820-26-63 20:00:00 Test Item Value Reference Range Interpretation Comments CO2 (test code = CO2) 23 24-32 L [facility] HospitalOhaizqgPUMBFWTHS9843-69-04 20:00:00 Test Item Value Reference Range Interpretation Comments Chloride Lvl (test code = Chloride Lvl) 98 95-109 N [facility] HospitalUrlbchpNKKQGHYDV1480-05-82 20:00:00 Test Item Value Reference Range Interpretation Comments Potassium Lvl (test code = Potassium 3.8 3.5-5.1 N Lvl) [facility] HospitalGmkrpepYVRBTXIVR2203-79-91 20:00:00 Test Item Value Reference Range Interpretation Comments Sodium Lvl (test code = Sodium Lvl) 138 135-145 N [facility] HospitalZvcapwgDQUYRKXKG9126-48-51 20:00:00 Test Item Value Reference Range Interpretation Comments Creatinine Lvl (test code = Creatinine 0.7 0.5-1.4 N Lvl) [facility] HospitalYqujmdpMNLPLULKG6545-90-41 20:00:00 Test Item Value Reference Range Interpretation Comments BUN (test code = BUN) 9 7-22 N [facility] HospitalVadkilnDWHRIRKCU6128-20-09 20:00:00 Test Item Value Reference Range Interpretation Comments Glucose Lvl (test code = Glucose Lvl) 269 70-99 H [facility] HospitalIcddqlvDITHVMZJN8071-74-39 20:00:00 Test Item Value Reference Range Interpretation Comments B/C Ratio (test code = B/C Ratio) 13 6-25 N [facility] HospitalPgrwofwTPEHSIBNY5082-47-29 20:00:00 Test Item Value Reference Range Interpretation Comments AGAP (test code = AGAP) 20.8 10.0-20.0 H [facility] HospitalCzqocmaXHZKFHHMM3564-18-51 20:00:00 Test Item Value Reference Range Interpretation Comments Calcium Lvl (test code = Calcium Lvl) 9.3 8.5-10.5 N [facility] HospitalEnbgtkcRFPJGECGA9596-04-94 20:00:00 Test Item Value Reference Range Interpretation Comments Total Protein (test code = Total 6.7 6.4-8.4 N Protein) [facility] HospitalVupogpsMCKNJSKKP0001-05-46 20:00:00 Test Item Value Reference Range Interpretation Comments A/G Ratio (test code = A/G Ratio) 1.7 0.7-1.6 H [facility] HospitalObrzovfHAKUAACPB2063-46-25 20:00:00 Test Item Value Reference Range Interpretation Comments Globulin (test code = Globulin) 2.5 2.0-4.0 N [facility] HospitalKyvdksaBTXMQXGAB8280-55-65 20:00:00 Test Item Value Reference Range Interpretation Comments AST (test code = AST) 18 See_Comment N [Auto mated message] The system which ge nerated this result transmit rohit reference range : <=37. The reference range was not used to interpr et this result as reji l/abnormal. [facility] HospitalZjusronXDGJRRBVZ3296-66-11 20:00:00 Test Item Value Reference Range Interpretation Comments Alk Phos (test code = Alk Phos) 62 39-136 N [facility] HospitalEyrywayMCWGTIORD9610-56-85 20:00:00 Test Item Value Reference Range Interpretation Comments ALT (test code = ALT) 32 See_Comment N [Auto mated message] The system which ge nerated this result transmit rohit reference range : <=65. The reference range was not used to interpr et this result as reji l/abnormal. [facility] HospitalLnbkzitBIIPKHKTG3490-45-99 20:00:00 Test Item Value Reference Range Interpretation Comments Bili Total (test code = Bili Total) 0.7 0.2-1.3 N [facility] CenterQowcdgeXQNRTUFXVX5825-40-83 20:00:00 Test Item Value Reference Range Interpretation Comments Anisocyte (test code = 1+ *ABN*(11/28/2011 A Anisocyte) 15:00:00) [facility] CenterUbkfzctHLWIIYCPWR3367-74-86 20:00:00 Test Item Value Reference Range Interpretation Comments Monocytes # (test code 0.1 See_Comment N [Aut omated message] The = Monocytes #) system which generated this result tra nsmitted reference range : <=0.8. The reference r leo was not used to int erpret this result as normal/abnormal . [facility]MpmapqsEDATOLBWRV3430-58-73 20:00:00 Test Item Value Reference Range Interpretation Comments Eosinophils # (test code 0.0 See_Comment N [A utomated message] The = Eosinophils #) system whic h generated this result tra nsmitted reference range : <=0.5. The reference r leo was not used to int erpret this result as normal/abnormal . [facility] CenterEperkdgCUFIHHRPTP5050-85-64 20:00:00 Test Item Value Reference Range Interpretation Comments Basophils # (test code 0.0 See_Comment N [Aut omated message] The = Basophils #) system which generated this result tra nsmitted reference range : <=0.2. The reference r leo was not used to int erpret this result as normal/abnormal . [facility] CenterTzuuhtqMREPRIYOUI2756-20-80 20:00:00 Test Item Value Reference Range Interpretation Comments Neut Vac (test code = Slight *ABN*(11/28/2011 A Neut Vac) 15:00:00) [facility] CenterVjxleoyGHNJWSAQKG0768-82-91 20:00:00 Test Item Value Reference Range Interpretation Comments Large Plt (test code = Slight *ABN*(11/28/2011 A Large Plt) 15:00:00) [facility] CenterErezutgJVHRXGKLDE8120-93-59 20:00:00 Test Item Value Reference Range Interpretation Comments Segs-Bands # (test code = Segs-Bands #) 5.7 1.5-8.1 N [facility] CenterFokztmfTWETIERHKV0425-15-90 20:00:00 Test Item Value Reference Range Interpretation Comments Lymphocytes # (test code = Lymphocytes 0.8 1.0-5.5 L #) [facility] CenterQjvmnlzYSLYCHOGAL5215-91-65 20:00:00 Test Item Value Reference Range Interpretation Comments Eosinophils (test code = 0.2 See_Comment N [A utomated message] The Eosinophils) system which ge nerated this result tra nsmitted reference range : <=4.0. The reference r leo was not used to int erpret this result as normal/abnormal . [facility] CenterYixjeflEDKXSKZBNH9639-00-04 20:00:00 Test Item Value Reference Range Interpretation Comments Basophils (test code = 0.0 See_Comment N [Aut omated message] The Basophils) system which ge nerated this result tra nsmitted reference range : <=1.0. The reference r leo was not used to int erpret this result as normal/abnormal . [facility] CenterYzufewlXRKHNOTRCO5318-56-59 20:00:00 Test Item Value Reference Range Interpretation Comments Monocytes (test code = Monocytes) 1.9 2.0-12.0 L [facility] CenterSabxefjXEBJBNHJGZ2339-20-90 20:00:00 Test Item Value Reference Range Interpretation Comments Segs (test code = Segs) 86.2 45.0-75.0 H [facility] CenterRmkltqeXHVSRJHNQI5578-24-25 20:00:00 Test Item Value Reference Range Interpretation Comments Lymphocytes (test code = Lymphocytes) 11.7 20.0-40.0 L [facility] CenterKezmeunHPZJZSEYMS5015-20-94 20:00:00 Test Item Value Reference Range Interpretation Comments MPV (test code = MPV) 10.8 7.4-10.4 H [facility] CenterZielaqoNHOUJSWVCO5654-45-62 20:00:00 Test Item Value Reference Range Interpretation Comments Platelet (test code = Platelet) 161 133-450 N [facility] CenterPvnzopyPYAYWUQXJZ0532-39-88 20:00:00 Test Item Value Reference Range Interpretation Comments MCHC (test code = MCHC) 35.6 32.0-36.0 N [facility] CenterSvptcdqKQDKYFXKTW4257-40-81 20:00:00 Test Item Value Reference Range Interpretation Comments RDW (test code = RDW) 12.4 11.5-14.5 N [facility] CenterTvytmmqINRLBQZJHB0520-29-69 20:00:00 Test Item Value Reference Range Interpretation Comments MCH (test code = MCH) 30.7 pg 27.0-31.0 N [facility] CenterRlskccoRPVKLJIJMR9100-35-51 20:00:00 Test Item Value Reference Range Interpretation Comments MCV (test code = MCV) 86.1 81.0-99.0 N [facility] CenterLnoupezUIXJIRGOAY0476-68-76 20:00:00 Test Item Value Reference Range Interpretation Comments Hct (test code = Hct) 33.6 36.0-48.0 L [facility] CenterKjyufzbASBVSBVLRZ6293-97-01 20:00:00 Test Item Value Reference Range Interpretation Comments Hgb (test code = Hgb) 12.0 12.0-16.0 N [facility] CenterBowevzoUFUGINJEQC2720-11-07 20:00:00 Test Item Value Reference Range Interpretation Comments RBC (test code = RBC) 3.90 4.20-5.40 L [facility] CenterRibjxubPXOAWAVQPW9356-71-38 20:00:00 Test Item Value Reference Range Interpretation Comments WBC (test code = WBC) 6.6 3.7-10.4 N [facility]IzpdgeiHHBXXGPGH8449-81-12 20:00:00 Test Item Value Reference Range Interpretation Comments Lactic Acid Lvl (test code = Lactic 1.6 0.5-2.2 N Acid Lvl) [facility] HospitalOirwbnsMRXWYMGUJ6566-57-18 20:00:00 Test Item Value Reference Range Interpretation Comments Lipase Lvl (test code = Lipase Lvl) 125 73-393 N [facility] HospitalJarawewATUERLZHF8969-30-58 20:00:00 Test Item Value Reference Range Interpretation Comments Albumin Lvl (test code = Albumin Lvl) 4.2 3.5-5.0 N [facility] HospitalWaqypsgKGDRXWAUD1268-79-79 20:00:00 Test Item Value Reference Range Interpretation Comments CO2 (test code = CO2) 23 24-32 L [facility] HospitalBzjpxtmOIKAIZZIX5924-94-70 20:00:00 Test Item Value Reference Range Interpretation Comments Chloride Lvl (test code = Chloride Lvl) 98 95-109 N [facility] HospitalRqusnxkVBJSFHCZO4411-40-53 20:00:00 Test Item Value Reference Range Interpretation Comments Potassium Lvl (test code = Potassium 3.8 3.5-5.1 N Lvl) [facility] HospitalNcwkcsiUMPMKCQSL8570-94-36 20:00:00 Test Item Value Reference Range Interpretation Comments Sodium Lvl (test code = Sodium Lvl) 138 135-145 N [facility] HospitalXkikbolARMAETFMV2183-39-60 20:00:00 Test Item Value Reference Range Interpretation Comments Creatinine Lvl (test code = Creatinine 0.7 0.5-1.4 N Lvl) [facility] HospitalSogrlouUEWQLPEYT6761-77-62 20:00:00 Test Item Value Reference Range Interpretation Comments BUN (test code = BUN) 9 7-22 N [facility] HospitalCkojlbpAUQQXPGZC1064-20-97 20:00:00 Test Item Value Reference Range Interpretation Comments Glucose Lvl (test code = Glucose Lvl) 269 70-99 H [facility] HospitalNdiunchJBMVOVQNT9953-10-22 20:00:00 Test Item Value Reference Range Interpretation Comments B/C Ratio (test code = B/C Ratio) 13 6-25 N [facility] HospitalMdcczgvDALRNIUVN3585-22-31 20:00:00 Test Item Value Reference Range Interpretation Comments AGAP (test code = AGAP) 20.8 10.0-20.0 H [facility] HospitalIcgedlpLOHSJLEVN6758-17-44 20:00:00 Test Item Value Reference Range Interpretation Comments Calcium Lvl (test code = Calcium Lvl) 9.3 8.5-10.5 N [facility] HospitalCevfetrXONORIUPP4830-60-76 20:00:00 Test Item Value Reference Range Interpretation Comments Total Protein (test code = Total 6.7 6.4-8.4 N Protein) [facility] HospitalNcixusjVZVSAQBVH3515-52-71 20:00:00 Test Item Value Reference Range Interpretation Comments A/G Ratio (test code = A/G Ratio) 1.7 0.7-1.6 H [facility] HospitalFdfcsgfPBBQURXFK1627-66-87 20:00:00 Test Item Value Reference Range Interpretation Comments Globulin (test code = Globulin) 2.5 2.0-4.0 N [facility] HospitalExwyewbQOVFEORHU9463-59-08 20:00:00 Test Item Value Reference Range Interpretation Comments AST (test code = AST) 18 See_Comment N [Auto mated message] The system which ge nerated this result transmit rohit reference range : <=37. The reference range was not used to interpr et this result as reji l/abnormal. [facility] HospitalKktiiwtBUWYFYAID4091-77-75 20:00:00 Test Item Value Reference Range Interpretation Comments Alk Phos (test code = Alk Phos) 62 39-136 N [facility] HospitalTencabjKFXSNWVZH5913-63-56 20:00:00 Test Item Value Reference Range Interpretation Comments ALT (test code = ALT) 32 See_Comment N [Auto mated message] The system which ge nerated this result transmit rohit reference range : <=65. The reference range was not used to interpr et this result as reji l/abnormal. [facility] HospitalIkwlvunEUYFEQOMF8733-44-55 20:00:00 Test Item Value Reference Range Interpretation Comments Bili Total (test code = Bili Total) 0.7 0.2-1.3 N [facility] CenterYrdyiiqZZGAQRWEAW4779-81-72 20:00:00 Test Item Value Reference Range Interpretation Comments Anisocyte (test code = 1+ *ABN*(11/28/2011 A Anisocyte) 15:00:00) [facility] CenterFjcnnpnNULDYAEGOP0623-52-57 20:00:00 Test Item Value Reference Range Interpretation Comments Monocytes # (test code 0.1 See_Comment N [Aut omated message] The = Monocytes #) system which generated this result tra nsmitted reference range : <=0.8. The reference r leo was not used to int erpret this result as normal/abnormal . [facility] CenterHihvewfNARWCCKPLC4140-13-46 20:00:00 Test Item Value Reference Range Interpretation Comments Eosinophils # (test code 0.0 See_Comment N [A utomated message] The = Eosinophils #) system whic h generated this result tra nsmitted reference range : <=0.5. The reference r leo was not used to int erpret this result as normal/abnormal . [facility] CenterTtlhxifIGCJYOVXHD2015-03-28 20:00:00 Test Item Value Reference Range Interpretation Comments Basophils # (test code 0.0 See_Comment N [Aut omated message] The = Basophils #) system which generated this result tra nsmitted reference range : <=0.2. The reference r leo was not used to int erpret this result as normal/abnormal . [facility] CenterNuigruyBIPOQQHKHW0206-05-45 20:00:00 Test Item Value Reference Range Interpretation Comments Neut Vac (test code = Slight *ABN*(11/28/2011 A Neut Vac) 15:00:00) [facility] CenterQeiftxfVNJFUMMMVO2455-66-32 20:00:00 Test Item Value Reference Range Interpretation Comments Large Plt (test code = Slight *ABN*(11/28/2011 A Large Plt) 15:00:00) [facility] CenterPvfatwyAUVYXUWATD1796-68-54 20:00:00 Test Item Value Reference Range Interpretation Comments Segs-Bands # (test code = Segs-Bands #) 5.7 1.5-8.1 N [facility] CenterWzkyfemKUKVKRRQKN7987-69-39 20:00:00 Test Item Value Reference Range Interpretation Comments Lymphocytes # (test code = Lymphocytes 0.8 1.0-5.5 L #) [facility] CenterFcbyoadBUKJLXWNLW8832-47-70 20:00:00 Test Item Value Reference Range Interpretation Comments Eosinophils (test code = 0.2 See_Comment N [A utomated message] The Eosinophils) system which ge nerated this result tra nsmitted reference range : <=4.0. The reference r leo was not used to int erpret this result as normal/abnormal . [facility] CenterMrbhokoMZAVZEVHGA3603-60-81 20:00:00 Test Item Value Reference Range Interpretation Comments Basophils (test code = 0.0 See_Comment N [Aut omated message] The Basophils) system which ge nerated this result tra nsmitted reference range : <=1.0. The reference r leo was not used to int erpret this result as normal/abnormal . [facility] CenterRzxblhcCAPQZCPTVW3842-30-83 20:00:00 Test Item Value Reference Range Interpretation Comments Monocytes (test code = Monocytes) 1.9 2.0-12.0 L [facility] CenterHfsujieJVSWRBGSMT6205-44-88 20:00:00 Test Item Value Reference Range Interpretation Comments Segs (test code = Segs) 86.2 45.0-75.0 H [facility] CenterKzbwgifRIFFTAFPHN4337-38-73 20:00:00 Test Item Value Reference Range Interpretation Comments Lymphocytes (test code = Lymphocytes) 11.7 20.0-40.0 L [facility] CenterGmuiqauFJKJDZNPTB7368-57-82 20:00:00 Test Item Value Reference Range Interpretation Comments MPV (test code = MPV) 10.8 7.4-10.4 H [facility] CenterVeduzejHFYOBMQDNL1240-43-96 20:00:00 Test Item Value Reference Range Interpretation Comments Platelet (test code = Platelet) 161 133-450 N [facility] CenterQscywqcTKUIWKFCMW0561-50-42 20:00:00 Test Item Value Reference Range Interpretation Comments MCHC (test code = MCHC) 35.6 32.0-36.0 N [facility] CenterYrpfauqYCXIGJUOTL8945-49-35 20:00:00 Test Item Value Reference Range Interpretation Comments RDW (test code = RDW) 12.4 11.5-14.5 N [facility] CenterLbvzcemAUOPUEGKFL8554-92-40 20:00:00 Test Item Value Reference Range Interpretation Comments MCH (test code = MCH) 30.7 pg 27.0-31.0 N [facility] CenterJfsnqlkUXACENVJZI5776-77-91 20:00:00 Test Item Value Reference Range Interpretation Comments MCV (test code = MCV) 86.1 81.0-99.0 N [facility] CenterTmuqgmtXDOGRBVPGF9206-20-60 20:00:00 Test Item Value Reference Range Interpretation Comments Hct (test code = Hct) 33.6 36.0-48.0 L [facility] CenterIexwentAHDJLQRWXW6813-39-40 20:00:00 Test Item Value Reference Range Interpretation Comments Hgb (test code = Hgb) 12.0 12.0-16.0 N [facility] CenterWzopyyhMTZRVPXSFN8174-03-62 20:00:00 Test Item Value Reference Range Interpretation Comments RBC (test code = RBC) 3.90 4.20-5.40 L [facility] CenterZjizdazURDLHELGCR5929-74-65 20:00:00 Test Item Value Reference Range Interpretation Comments WBC (test code = WBC) 6.6 3.7-10.4 N [facility] HospitalRffzfibTZAWDGHNN9028-66-61 20:00:00 Test Item Value Reference Range Interpretation Comments Lactic Acid Lvl (test code = Lactic 1.6 0.5-2.2 N Acid Lvl) [facility] HospitalLauuyytMJDTHSXEG3148-76-77 20:00:00 Test Item Value Reference Range Interpretation Comments Lipase Lvl (test code = Lipase Lvl) 125 73-393 N [facility] HospitalEvravnfVEIZZDTNL2723-50-09 20:00:00 Test Item Value Reference Range Interpretation Comments Albumin Lvl (test code = Albumin Lvl) 4.2 3.5-5.0 N [facility] HospitalKfcjcieNGSURBYNU0907-55-87 20:00:00 Test Item Value Reference Range Interpretation Comments CO2 (test code = CO2) 23 24-32 L [facility] HospitalVgpbytkDZEXZZKNK1859-88-28 20:00:00 Test Item Value Reference Range Interpretation Comments Chloride Lvl (test code = Chloride Lvl) 98 95-109 N [facility] HospitalXpkrhkgPFVTOWSGH5765-86-45 20:00:00 Test Item Value Reference Range Interpretation Comments Potassium Lvl (test code = Potassium 3.8 3.5-5.1 N Lvl) [facility] HospitalDtmuzbgNXCBQCRAE6240-98-76 20:00:00 Test Item Value Reference Range Interpretation Comments Sodium Lvl (test code = Sodium Lvl) 138 135-145 N [facility] HospitalLusnmflQSRAOWAZJ8925-86-93 20:00:00 Test Item Value Reference Range Interpretation Comments Creatinine Lvl (test code = Creatinine 0.7 0.5-1.4 N Lvl) [facility] HospitalEsbvettPUMEGZGXC9437-44-53 20:00:00 Test Item Value Reference Range Interpretation Comments BUN (test code = BUN) 9 7-22 N [facility] HospitalXlqldljKTDPXMZTD2677-97-24 20:00:00 Test Item Value Reference Range Interpretation Comments Glucose Lvl (test code = Glucose Lvl) 269 70-99 H [facility] HospitalYsnfcqkVLDRJAHKS9087-56-56 20:00:00 Test Item Value Reference Range Interpretation Comments B/C Ratio (test code = B/C Ratio) 13 6-25 N [facility] HospitalUwkawivEXNYTMDOS2415-81-60 20:00:00 Test Item Value Reference Range Interpretation Comments AGAP (test code = AGAP) 20.8 10.0-20.0 H [facility] HospitalExtcfswXKINNCXKL0688-06-28 20:00:00 Test Item Value Reference Range Interpretation Comments Calcium Lvl (test code = Calcium Lvl) 9.3 8.5-10.5 N [facility] HospitalXriqlhuRKISHCOTB0452-22-09 20:00:00 Test Item Value Reference Range Interpretation Comments Total Protein (test code = Total 6.7 6.4-8.4 N Protein) [facility] HospitalVkpffryNJYMGRBND7799-25-35 20:00:00 Test Item Value Reference Range Interpretation Comments A/G Ratio (test code = A/G Ratio) 1.7 0.7-1.6 H [facility] HospitalUjabpvjGRRKPUZAE5914-41-83 20:00:00 Test Item Value Reference Range Interpretation Comments Globulin (test code = Globulin) 2.5 2.0-4.0 N [facility] HospitalXvcypvvRKDAJDITS9922-60-47 20:00:00 Test Item Value Reference Range Interpretation Comments AST (test code = AST) 18 See_Comment N [Auto mated message] The system which ge nerated this result transmit rohit reference range : <=37. The reference range was not used to interpr et this result as reji l/abnormal. [facility] HospitalHxxfmaoNPHXCBSYD8194-94-05 20:00:00 Test Item Value Reference Range Interpretation Comments Alk Phos (test code = Alk Phos) 62 39-136 N [facility] HospitalBzmqicsYPVQDWRUS0740-99-59 20:00:00 Test Item Value Reference Range Interpretation Comments ALT (test code = ALT) 32 See_Comment N [Auto mated message] The system which ge nerated this result transmit rohit reference range : <=65. The reference range was not used to interpr et this result as reji l/abnormal. [facility] HospitalOjsaupwTZBDBVNIB0798-85-00 20:00:00 Test Item Value Reference Range Interpretation Comments Bili Total (test code = Bili Total) 0.7 0.2-1.3 N [facility] CenterCygctjfWCJBTQEYNI0082-17-84 20:00:00 Test Item Value Reference Range Interpretation Comments Anisocyte (test code = 1+ *ABN*(11/28/2011 A Anisocyte) 15:00:00) [facility] CenterGrhcynnTLLRVEKTTW6937-38-49 20:00:00 Test Item Value Reference Range Interpretation Comments Monocytes # (test code 0.1 See_Comment N [Aut omated message] The = Monocytes #) system which generated this result tra nsmitted reference range : <=0.8. The reference r leo was not used to int erpret this result as normal/abnormal . [facility] CenterSnmzoywUENDTXUZGE7691-61-20 20:00:00 Test Item Value Reference Range Interpretation Comments Eosinophils # (test code 0.0 See_Comment N [A utomated message] The = Eosinophils #) system whic h generated this result tra nsmitted reference range : <=0.5. The reference r leo was not used to int erpret this result as normal/abnormal . [facility] CenterGgnvkssFKCQTFELLA8176-77-30 20:00:00 Test Item Value Reference Range Interpretation Comments Basophils # (test code 0.0 See_Comment N [Aut omated message] The = Basophils #) system which generated this result tra nsmitted reference range : <=0.2. The reference r leo was not used to int erpret this result as normal/abnormal . [facility] CenterUqkgdpbHKQAUWYQAX5917-02-61 20:00:00 Test Item Value Reference Range Interpretation Comments Neut Vac (test code = Slight *ABN*(11/28/2011 A Neut Vac) 15:00:00) [facility] CenterRqwzudnVECEZAIIHO1451-98-45 20:00:00 Test Item Value Reference Range Interpretation Comments Large Plt (test code = Slight *ABN*(11/28/2011 A Large Plt) 15:00:00) [facility] CenterHnbdciyYRJNVIPXST4483-15-14 20:00:00 Test Item Value Reference Range Interpretation Comments Segs-Bands # (test code = Segs-Bands #) 5.7 1.5-8.1 N [facility] CenterZfnvrtbQAGVJTALTA9465-94-66 20:00:00 Test Item Value Reference Range Interpretation Comments Lymphocytes # (test code = Lymphocytes 0.8 1.0-5.5 L #) [facility] CenterDgpwjywWIIHWTFVEH4856-23-45 20:00:00 Test Item Value Reference Range Interpretation Comments Eosinophils (test code = 0.2 See_Comment N [A utomated message] The Eosinophils) system which ge nerated this result tra nsmitted reference range : <=4.0. The reference r leo was not used to int erpret this result as normal/abnormal . [facility] CenterFwsxrhzDZGSEDXRNU3355-70-95 20:00:00 Test Item Value Reference Range Interpretation Comments Basophils (test code = 0.0 See_Comment N [Aut omated message] The Basophils) system which ge nerated this result tra nsmitted reference range : <=1.0. The reference r leo was not used to int erpret this result as normal/abnormal . [facility] CenterUlwcaotBXCRXLJPKQ7690-00-32 20:00:00 Test Item Value Reference Range Interpretation Comments Monocytes (test code = Monocytes) 1.9 2.0-12.0 L [facility] CenterWoxcfavARBUZFTHUT3039-77-71 20:00:00 Test Item Value Reference Range Interpretation Comments Segs (test code = Segs) 86.2 45.0-75.0 H [facility] CenterHjdkoynJXEFPBEKZE4358-28-04 20:00:00 Test Item Value Reference Range Interpretation Comments Lymphocytes (test code = Lymphocytes) 11.7 20.0-40.0 L [facility] CenterTpzxzqrFAZXQFHZXM2119-22-42 20:00:00 Test Item Value Reference Range Interpretation Comments MPV (test code = MPV) 10.8 7.4-10.4 H [facility] CenterUlvaeiePBPXUWCZMQ8919-21-76 20:00:00 Test Item Value Reference Range Interpretation Comments Platelet (test code = Platelet) 161 133-450 N [facility] CenterEvndgolTJOWIIYHXX2202-41-31 20:00:00 Test Item Value Reference Range Interpretation Comments MCHC (test code = MCHC) 35.6 32.0-36.0 N [facility] CenterAbivinwCYYRZIJWUP7165-00-01 20:00:00 Test Item Value Reference Range Interpretation Comments RDW (test code = RDW) 12.4 11.5-14.5 N [facility] CenterEpmybcqMZIUZQEXPM9051-53-29 20:00:00 Test Item Value Reference Range Interpretation Comments MCH (test code = MCH) 30.7 pg 27.0-31.0 N [facility] CenterPtyfmluVNGIIOQEQJ1833-55-34 20:00:00 Test Item Value Reference Range Interpretation Comments MCV (test code = MCV) 86.1 81.0-99.0 N [facility] CenterQpserbnGCOIEGTGPW4098-91-18 20:00:00 Test Item Value Reference Range Interpretation Comments Hct (test code = Hct) 33.6 36.0-48.0 L [facility] CenterAsaefzeFEMKHBTDSZ4575-79-73 20:00:00 Test Item Value Reference Range Interpretation Comments Hgb (test code = Hgb) 12.0 12.0-16.0 N [facility] CenterRetsxkhKIAIJBEKHF8099-29-02 20:00:00 Test Item Value Reference Range Interpretation Comments RBC (test code = RBC) 3.90 4.20-5.40 L [facility] CenterQvagahvNKVRRMBXTI3398-95-73 20:00:00 Test Item Value Reference Range Interpretation Comments WBC (test code = WBC) 6.6 3.7-10.4 N [facility] HospitalKunuazhZZSVWXIMD7050-13-56 20:00:00 Test Item Value Reference Range Interpretation Comments Lactic Acid Lvl (test code = Lactic 1.6 0.5-2.2 N Acid Lvl) [facility] HospitalFxmgbmkWADUNOYVE7276-69-86 20:00:00 Test Item Value Reference Range Interpretation Comments Lipase Lvl (test code = Lipase Lvl) 125 73-393 N [facility] HospitalLlitncvLJRLESPWY1943-48-47 20:00:00 Test Item Value Reference Range Interpretation Comments Albumin Lvl (test code = Albumin Lvl) 4.2 3.5-5.0 N [facility] HospitalJvczjnjSZVPRDCLR6163-16-43 20:00:00 Test Item Value Reference Range Interpretation Comments CO2 (test code = CO2) 23 24-32 L [facility] HospitalMhuhjrcFQRCLJCPN9610-85-43 20:00:00 Test Item Value Reference Range Interpretation Comments Chloride Lvl (test code = Chloride Lvl) 98 95-109 N [facility] HospitalTetrtuzJISBIAHQD7233-99-65 20:00:00 Test Item Value Reference Range Interpretation Comments Potassium Lvl (test code = Potassium 3.8 3.5-5.1 N Lvl) [facility] HospitalHsdjqzzHFSGZCTEI2044-92-78 20:00:00 Test Item Value Reference Range Interpretation Comments Sodium Lvl (test code = Sodium Lvl) 138 135-145 N [place] 284782-06-09 20:00:00 Test Item Value Reference Range Interpretation Comments Creatinine Lvl (test code = Creatinine 0.7 0.5-1.4 N Lvl) [facility] HospitalGbjpaajKUBAINPPO4096-73-78 20:00:00 Test Item Value Reference Range Interpretation Comments BUN (test code = BUN) 9 7-22 N [facility] HospitalWlcbhzmCZLXVIDRO0214-54-67 20:00:00 Test Item Value Reference Range Interpretation Comments Glucose Lvl (test code = Glucose Lvl) 269 70-99 H [facility] HospitalLsyqffoGZYPEZANM6010-72-24 20:00:00 Test Item Value Reference Range Interpretation Comments B/C Ratio (test code = B/C Ratio) 13 6-25 N [facility] HospitalKwsopuuQFOFVOURH1781-97-42 20:00:00 Test Item Value Reference Range Interpretation Comments AGAP (test code = AGAP) 20.8 10.0-20.0 H [facility] HospitalZznzqupDZTFVRXYJ2774-92-41 20:00:00 Test Item Value Reference Range Interpretation Comments Calcium Lvl (test code = Calcium Lvl) 9.3 8.5-10.5 N [facility] HospitalImqckggAIMIGCDIM0737-67-70 20:00:00 Test Item Value Reference Range Interpretation Comments Total Protein (test code = Total 6.7 6.4-8.4 N Protein) [facility] HospitalOcxyetrKNXNEALIP6534-90-57 20:00:00 Test Item Value Reference Range Interpretation Comments A/G Ratio (test code = A/G Ratio) 1.7 0.7-1.6 H [facility] HospitalBqtrxwdDBQYFIPBK2671-63-63 20:00:00 Test Item Value Reference Range Interpretation Comments Globulin (test code = Globulin) 2.5 2.0-4.0 N [facility] HospitalOaubglqHEJVQLCSA7012-95-13 20:00:00 Test Item Value Reference Range Interpretation Comments AST (test code = AST) 18 See_Comment N [Auto mated message] The system which ge nerated this result transmit rohit reference range : <=37. The reference range was not used to interpr et this result as reji l/abnormal. [facility]vbgsrfNUGQEVDFQ3532-67-28 20:00:00 Test Item Value Reference Range Interpretation Comments Alk Phos (test code = Alk Phos) 62 39-136 N [facility]QkdvioqRGKWAZECW2857-35-77 20:00:00 Test Item Value Reference Range Interpretation Comments ALT (test code = ALT) 32 See_Comment N [Auto mated message] The system which ge nerated this result transmit rohit reference range : <=65. The reference range was not used to interpr et this result as reji l/abnormal. [facility] HospitalNzigjnyWLKZDZNSS8929-67-31 20:00:00 Test Item Value Reference Range Interpretation Comments Bili Total (test code = Bili Total) 0.7 0.2-1.3 N [facility]SqhauylNUZYXLETVJ0795-15-63 20:00:00 Test Item Value Reference Range Interpretation Comments Anisocyte (test code = 1+ *ABN*(11/28/2011 A Anisocyte) 15:00:00) [facility] CenterZguxzlwRTHZEUJRRH2421-63-44 20:00:00 Test Item Value Reference Range Interpretation Comments Monocytes # (test code 0.1 See_Comment N [Aut omated message] The = Monocytes #) system which generated this result tra nsmitted reference range : <=0.8. The reference r leo was not used to int erpret this result as normal/abnormal . [facility] CenterGcihwlvRBOBRKEBPA3323-64-81 20:00:00 Test Item Value Reference Range Interpretation Comments Eosinophils # (test code 0.0 See_Comment N [A utomated message] The = Eosinophils #) system whic h generated this result tra nsmitted reference range : <=0.5. The reference r leo was not used to int erpret this result as normal/abnormal . [facility] CenterCakthyzOXDEHIHDMD9227-55-63 20:00:00 Test Item Value Reference Range Interpretation Comments Basophils # (test code 0.0 See_Comment N [Aut omated message] The = Basophils #) system which generated this result tra nsmitted reference range : <=0.2. The reference r leo was not used to int erpret this result as normal/abnormal . [facility] CenterLtoqoteBNTLKLRQDA7431-19-33 20:00:00 Test Item Value Reference Range Interpretation Comments Neut Vac (test code = Slight *ABN*(11/28/2011 A Neut Vac) 15:00:00) [facility] CenterAiankwwMUNMAAIMKK3886-71-00 20:00:00 Test Item Value Reference Range Interpretation Comments Large Plt (test code = Slight *ABN*(11/28/2011 A Large Plt) 15:00:00) [facility] CenterWccdnvzPCRBJQFNIP1612-07-07 20:00:00 Test Item Value Reference Range Interpretation Comments Segs-Bands # (test code = Segs-Bands #) 5.7 1.5-8.1 N [facility] CenterOoldiuzNWVIIULHJT7730-20-26 20:00:00 Test Item Value Reference Range Interpretation Comments Lymphocytes # (test code = Lymphocytes 0.8 1.0-5.5 L #) [facility] CenterMexswfyPWCMMBWKHB6990-76-16 20:00:00 Test Item Value Reference Range Interpretation Comments Eosinophils (test code = 0.2 See_Comment N [A utomated message] The Eosinophils) system which ge nerated this result tra nsmitted reference range : <=4.0. The reference r leo was not used to int erpret this result as normal/abnormal . [facility] CenterRisaebcXCGAIOUGBA3484-93-16 20:00:00 Test Item Value Reference Range Interpretation Comments Basophils (test code = 0.0 See_Comment N [Aut omated message] The Basophils) system which ge nerated this result tra nsmitted reference range : <=1.0. The reference r leo was not used to int erpret this result as normal/abnormal . [facility] CenterYspqcidXBQCTBRLEQ6666-16-81 20:00:00 Test Item Value Reference Range Interpretation Comments Monocytes (test code = Monocytes) 1.9 2.0-12.0 L [facility] CenterOqqbygiLDSSBJZLDR8612-91-73 20:00:00 Test Item Value Reference Range Interpretation Comments Segs (test code = Segs) 86.2 45.0-75.0 H [facility] CenterOvtfkjfBMPMVTYORT5737-49-31 20:00:00 Test Item Value Reference Range Interpretation Comments Lymphocytes (test code = Lymphocytes) 11.7 20.0-40.0 L [facility] CenterHwqlmmvEAHLKTLVHX5935-22-97 20:00:00 Test Item Value Reference Range Interpretation Comments MPV (test code = MPV) 10.8 7.4-10.4 H [facility] CenterGjszjkkOCSVSIBDRK6608-58-03 20:00:00 Test Item Value Reference Range Interpretation Comments Platelet (test code = Platelet) 161 133-450 N [facility] CenterPqdewuaQAVAYXVBMY1386-87-00 20:00:00 Test Item Value Reference Range Interpretation Comments MCHC (test code = MCHC) 35.6 32.0-36.0 N [facility] CenterFesxrglVNNNBMDYCX9033-62-86 20:00:00 Test Item Value Reference Range Interpretation Comments RDW (test code = RDW) 12.4 11.5-14.5 N [facility] CenterIsuxlygRCZUWZUJBA1459-61-18 20:00:00 Test Item Value Reference Range Interpretation Comments MCH (test code = MCH) 30.7 pg 27.0-31.0 N [facility] CenterKlyweeaMNYAKTIMPS6541-64-72 20:00:00 Test Item Value Reference Range Interpretation Comments MCV (test code = MCV) 86.1 81.0-99.0 N [facility] CenterPioqbkuAFYVCYFEUU8814-48-40 20:00:00 Test Item Value Reference Range Interpretation Comments Hct (test code = Hct) 33.6 36.0-48.0 L [facility] CenterRfygslcQMXQGZNGIA2716-15-68 20:00:00 Test Item Value Reference Range Interpretation Comments Hgb (test code = Hgb) 12.0 12.0-16.0 N [facility] CenterCvjmuklHYKPSTHFSI8333-60-03 20:00:00 Test Item Value Reference Range Interpretation Comments RBC (test code = RBC) 3.90 4.20-5.40 L [facility] CenterRbsjjffGXZOFFMPKH2743-64-64 20:00:00 Test Item Value Reference Range Interpretation Comments WBC (test code = WBC) 6.6 3.7-10.4 N [facility] HospitalZujjcjhUDIGLRIBX6288-75-57 19:51:00 Test Item Value Reference Range Interpretation Comments UDS Note (test code = See Note UDS Note) 5*NA*(11/28/2011 14:51:00) [facility] HospitalIyfzgqdVNBMUFCIR3016-19-37 19:51:00 Test Item Value Reference Range Interpretation Comments U Phencyc Scr (test Negative code = U Phencyc Scr) *NA*(11/28/2011 14:51:00) [facility] HospitalZodjqdzFJHUVYRWJ3705-40-16 19:51:00 Test Item Value Reference Range Interpretation Comments U Kelly Scr (test code Negative *NA*(11/28/2011 = U Kelly Scr) 14:51:00) [facility] CenterQbvdofuYBAVZYXSQ2224-75-97 19:51:00 Test Item Value Reference Range Interpretation Comments U Amph Scr (test code Negative *NA*(11/28/2011 = U Amph Scr) 14:51:00) [facility] HospitalMnqyxbsXADBVHRFU5923-21-33 19:51:00 Test Item Value Reference Range Interpretation Comments U Opiate Scr (test Negative code = U Opiate Scr) *NA*(11/28/2011 14:51:00) [facility] HospitalOaafgieOMXWWUAEE3133-65-77 19:51:00 Test Item Value Reference Range Interpretation Comments U Cocaine Scr (test Negative code = U Cocaine Scr) *NA*(11/28/2011 14:51:00) [facility] HospitalYelrkceZSAAFAXXC2084-46-00 19:51:00 Test Item Value Reference Range Interpretation Comments U Cannab Scr (test Negative code = U Cannab Scr) *NA*(11/28/2011 14:51:00) [facility] HospitalFxuoiypBGIMMHRKI1419-91-99 19:51:00 Test Item Value Reference Range Interpretation Comments U Benzodia Scr (test Negative code = U Benzodia Scr) *NA*(11/28/2011 14:51:00) [facility] HospitalCeekvczQTSJTAAQH2503-43-69 19:51:00 Test Item Value Reference Range Interpretation Comments UDS Note (test code = See Note UDS Note) 5*NA*(11/28/2011 14:51:00) [facility] HospitalZtxvcyzZQRGIFVFC0791-00-97 19:51:00 Test Item Value Reference Range Interpretation Comments U Phencyc Scr (test Negative code = U Phencyc Scr) *NA*(11/28/2011 14:51:00) [facility] HospitalVgydpvtBJSKPXKHP7685-83-74 19:51:00 Test Item Value Reference Range Interpretation Comments U Kelly Scr (test code Negative *NA*(11/28/2011 = U Kelly Scr) 14:51:00) [facility] HospitalQpwtwkcFEMYAZDDJ4080-19-32 19:51:00 Test Item Value Reference Range Interpretation Comments U Amph Scr (test code Negative *NA*(11/28/2011 = U Amph Scr) 14:51:00) [facility] HospitalWvkixkyGAKALAWXY2473-40-69 19:51:00 Test Item Value Reference Range Interpretation Comments U Opiate Scr (test Negative code = U Opiate Scr) *NA*(11/28/2011 14:51:00) [facility] HospitalRpctsymZZDPDILVY1223-10-36 19:51:00 Test Item Value Reference Range Interpretation Comments U Cocaine Scr (test Negative code = U Cocaine Scr) *NA*(11/28/2011 14:51:00) [facility] HospitalEbsfacoLXIBZANDY8550-80-52 19:51:00 Test Item Value Reference Range Interpretation Comments U Cannab Scr (test Negative code = U Cannab Scr) *NA*(11/28/2011 14:51:00) [facility] HospitalAuyjogkICXRIHGHA9733-07-69 19:51:00 Test Item Value Reference Range Interpretation Comments U Benzodia Scr (test Negative code = U Benzodia Scr) *NA*(11/28/2011 14:51:00) [facility] HospitalOzqdqeuGVOJKDEVH4631-14-30 19:51:00 Test Item Value Reference Range Interpretation Comments UDS Note (test code = See Note UDS Note) 5*NA*(11/28/2011 14:51:00) [facility] HospitalIqltwesHNGFIAUTQ2624-34-33 19:51:00 Test Item Value Reference Range Interpretation Comments U Phencyc Scr (test Negative code = U Phencyc Scr) *NA*(11/28/2011 14:51:00) [facility] HospitalQxcfrxtKOOLDMMTI6794-06-87 19:51:00 Test Item Value Reference Range Interpretation Comments U Kelly Scr (test code Negative *NA*(11/28/2011 = U Kelly Scr) 14:51:00) [facility] HospitalSwvmvvcYKXAWYALK4054-16-95 19:51:00 Test Item Value Reference Range Interpretation Comments U Amph Scr (test code Negative *NA*(11/28/2011 = U Amph Scr) 14:51:00) [facility] HospitalEhqdcxxBAWOHMSMM3623-18-57 19:51:00 Test Item Value Reference Range Interpretation Comments U Opiate Scr (test Negative code = U Opiate Scr) *NA*(11/28/2011 14:51:00) [facility] HospitalItawkbmQNTDSDNSS6221-19-71 19:51:00 Test Item Value Reference Range Interpretation Comments U Cocaine Scr (test Negative code = U Cocaine Scr) *NA*(11/28/2011 14:51:00) [facility] HospitalVlmmerdCIITYARVV1188-69-95 19:51:00 Test Item Value Reference Range Interpretation Comments U Cannab Scr (test Negative code = U Cannab Scr) *NA*(11/28/2011 14:51:00) [facility] HospitalSffaxjyGTLGZAVBV9165-75-49 19:51:00 Test Item Value Reference Range Interpretation Comments U Benzodia Scr (test Negative code = U Benzodia Scr) *NA*(11/28/2011 14:51:00) [facility] HospitalGoedbwkSMWRLSIHO3254-19-45 19:51:00 Test Item Value Reference Range Interpretation Comments UDS Note (test code = See Note UDS Note) 5*NA*(11/28/2011 14:51:00) [facility] HospitalJnffsgrGMHAUPZBQ3741-00-62 19:51:00 Test Item Value Reference Range Interpretation Comments U Phencyc Scr (test Negative code = U Phencyc Scr) *NA*(11/28/2011 14:51:00) [facility] HospitalJumljotWOLARFQUG7251-89-64 19:51:00 Test Item Value Reference Range Interpretation Comments U Kelly Scr (test code Negative *NA*(11/28/2011 = U Kelly Scr) 14:51:00) [facility] HospitalHaajdngGCXPUPSIH9796-64-02 19:51:00 Test Item Value Reference Range Interpretation Comments U Amph Scr (test code Negative *NA*(11/28/2011 = U Amph Scr) 14:51:00) [facility] HospitalVhaiwlsFPGWEROHF3172-17-00 19:51:00 Test Item Value Reference Range Interpretation Comments U Opiate Scr (test Negative code = U Opiate Scr) *NA*(11/28/2011 14:51:00) [facility] HospitalZgipfahKOHCMWXBD3031-34-08 19:51:00 Test Item Value Reference Range Interpretation Comments U Cocaine Scr (test Negative code = U Cocaine Scr) *NA*(11/28/2011 14:51:00) [facility] HospitalVntdocqXSVFSQWTU0929-47-06 19:51:00 Test Item Value Reference Range Interpretation Comments U Cannab Scr (test Negative code = U Cannab Scr) *NA*(11/28/2011 14:51:00) [facility] HospitalVkxtfduQQYWSSTZV2148-20-87 19:51:00 Test Item Value Reference Range Interpretation Comments U Benzodia Scr (test Negative code = U Benzodia Scr) *NA*(11/28/2011 14:51:00) [facility] HospitalPeifcyvKWFRHYWMH0397-63-68 19:51:00 Test Item Value Reference Range Interpretation Comments UDS Note (test code = See Note UDS Note) 5*NA*(11/28/2011 14:51:00) [facility] HospitalGdijjwkXOLWIZSNZ0070-36-36 19:51:00 Test Item Value Reference Range Interpretation Comments U Phencyc Scr (test Negative code = U Phencyc Scr) *NA*(11/28/2011 14:51:00) [facility] HospitalMqbmipuFEPYDKNGZ2458-75-19 19:51:00 Test Item Value Reference Range Interpretation Comments U Kelly Scr (test code Negative *NA*(11/28/2011 = U Kelly Scr) 14:51:00) [facility] HospitalTiypgknIYOBSBNKD6853-09-58 19:51:00 Test Item Value Reference Range Interpretation Comments U Amph Scr (test code Negative *NA*(11/28/2011 = U Amph Scr) 14:51:00) [facility] HospitalNqcukqiZAETAQWYF7286-64-48 19:51:00 Test Item Value Reference Range Interpretation Comments U Opiate Scr (test Negative code = U Opiate Scr) *NA*(11/28/2011 14:51:00) [facility] HospitalZkapnfrIGYOROWDQ4428-56-85 19:51:00 Test Item Value Reference Range Interpretation Comments U Cocaine Scr (test Negative code = U Cocaine Scr) *NA*(11/28/2011 14:51:00) [facility] HospitalHkqwhrdFUBQIJFSB8379-14-87 19:51:00 Test Item Value Reference Range Interpretation Comments U Cannab Scr (test Negative code = U Cannab Scr) *NA*(11/28/2011 14:51:00) [facility] HospitalIbmnijnAEDDJRKSP4015-46-44 19:51:00 Test Item Value Reference Range Interpretation Comments U Benzodia Scr (test Negative code = U Benzodia Scr) *NA*(11/28/2011 14:51:00) [facility] GLUCOSE JZTEGCN8142-44-96 16:20:00 Test Item Value Reference Range Interpretation Comments Comment1 (test code = Comment1) Notify RN/MD [facility] GLUCOSE [id number] 16:20:00 Test Item Value Reference Range Interpretation Comments Gluc POC Lifscn (test code = Gluc POC 328 70-99 H Lifscn) [facility] GLUCOSE [id number] 16:20:00 Test Item Value Reference Range Interpretation Comments Comment1 (test code = Comment1) Notify RN/ [facility] GLUCOSE [id number] 16:20:00 Test Item Value Reference Range Interpretation Comments Gluc POC Lifscn (test code = Gluc POC 328 70-99 H Lifscn) [facility] GLUCOSE [id number] 16:20:00 Test Item Value Reference Range Interpretation Comments Comment1 (test code = Comment1) Notify RN/ [facility] GLUCOSE AJTAEKQ7535-62-88 16:20:00 Test Item Value Reference Range Interpretation Comments Gluc POC Lifscn (test code = Gluc POC 328 70-99 H Lifscn) [facility] GLUCOSE [id number] 16:20:00 Test Item Value Reference Range Interpretation Comments Comment1 (test code = Comment1) Notify RN/ [facility] GLUCOSE [id number] 16:20:00 Test Item Value Reference Range Interpretation Comments Gluc POC Lifscn (test code = Gluc POC 328 70-99 H Lifscn) [facility] GLUCOSE PSCXZQO5347-65-23 16:20:00 Test Item Value Reference Range Interpretation Comments Comment1 (test code = Comment1) Notify RN/ [facility] GLUCOSE LDYCPQQ3384-07-87 16:20:00 Test Item Value Reference Range Interpretation Comments Gluc POC Lifscn (test code = Gluc POC 328 70-99 H Lifscn) [facility]WkoxbsmYIHKNIAPR4235-63-16 15:30:00 Test Item Value Reference Range Interpretation Comments U Preg (test code = U Negative (09/18/2011 N Preg) 10:30:00) [facility] CenterCqkczlbEYXBGNEDDL3532-68-17 15:30:00 Test Item Value Reference Range Interpretation Comments UA WBC (test code = UA None Seen (09/18/2011 N WBC) 10:30:00) [facility] CenterKtnlaelGEJOOAVZRV0731-48-41 15:30:00 Test Item Value Reference Range Interpretation Comments UA RBC (test None Seen See_Comment N [Automated mes pastor] code = UA RBC) (09/18/2011 The system ich 10:30:00) generated this result transmitted ref erence range: <=2. The reference range was not used to int erpret this result as normal/abnormal . [facility] NorthwestNxosboxRBGMSLIGKS9945-45-85 15:30:00 Test Item Value Reference Range Interpretation Comments UA Bacteria (test code = None Seen (09/18/2011 N UA Bacteria) 10:30:00) [facility]SgqvcenKLKOJXOZRG0810-93-35 15:30:00 Test Item Value Reference Range Interpretation Comments UA Amorph Destiny (test Few /HPF A code = UA Amorph Destiny) *ABN*(09/18/2011 10:30:00) [facility] NorthwestMrzyvxxRGUJRJBTAJ2050-43-75 15:30:00 Test Item Value Reference Range Interpretation Comments Micro? (test code = Performed (09/18/2011 N Micro?) 10:30:00) [facility]woodMzpdyezFQJDOLNJBD7498-12-09 15:30:00 Test Item Value Reference Range Interpretation Comments UA Sq Epi (test code = Rare /LPF (09/18/2011 N UA Sq Epi) 10:30:00) [facility]woodLnbrmlrTGTEVTYDLQ3776-66-46 15:30:00 Test Item Value Reference Range Interpretation Comments UA Ketones (test code = 15 mg/dL A UA Ketones) *ABN*(09/18/2011 10:30:00) [facility] NorthwestEvosbksDNUZQMLPOK6746-24-48 15:30:00 Test Item Value Reference Range Interpretation Comments UA Glucose (test code = >=1000 mg/dL A UA Glucose) *ABN*(09/18/2011 10:30:00) [facility] NorthwestQsjpeqfSBCORKQZEA6805-74-91 15:30:00 Test Item Value Reference Range Interpretation Comments UA Protein (test code = Trace A UA Protein) *ABN*(09/18/2011 10:30:00) [facility] NorthwestOkrlsehQATJNOHQEF5060-85-56 15:30:00 Test Item Value Reference Range Interpretation Comments UA Urobilinogen (test code = UA 0.2 0.1-1.0 N Urobilinogen) [facility]woodUdrcorcFIDIHRZOTP9136-98-74 15:30:00 Test Item Value Reference Range Interpretation Comments UA Blood (test code = Negative (09/18/2011 N UA Blood) 10:30:00) [facility] NorthwestVzbbbynQONZNTHOSU5094-51-61 15:30:00 Test Item Value Reference Range Interpretation Comments UA Bili (test code = Negative *NA*(09/18/2011 UA Bili) 10:30:00) [facility] TufyszfDJPOGBPLLT7204-47-97 15:30:00 Test Item Value Reference Range Interpretation Comments UA Leuk Est (test Negative (09/18/2011 N code = UA Leuk Est) 10:30:00) [facility] CenterXgjjymxLGSWHOLFDG2751-26-57 15:30:00 Test Item Value Reference Range Interpretation Comments UA Nitrite (test code Negative (09/18/2011 N = UA Nitrite) 10:30:00) [facility] CenterGtqpbmhTBQTYIMTLC2453-74-79 15:30:00 Test Item Value Reference Range Interpretation Comments UA pH (test code = UA pH) 7.5 1 5.0-8.0 N [facility] CenterSbwubeyZDKJRNCBIM3138-62-99 15:30:00 Test Item Value Reference Range Interpretation Comments UA Spec Grav (test code = UA Spec 1.010 1 N Grav) [facility] CenterUtqwureWRHKRCEZEV6810-64-74 15:30:00 Test Item Value Reference Range Interpretation Comments UA Turbidity (test code Slight Cloudy N = UA Turbidity) (09/18/2011 10:30:00) [facility] CenterMhmhnqwGRMGDGHYWM7157-39-50 15:30:00 Test Item Value Reference Range Interpretation Comments UA Color (test code = Yellow *NA*(09/18/2011 UA Color) 10:30:00) [facility] CenterIuinykcUOBPSWWWE7340-93-22 15:30:00 Test Item Value Reference Range Interpretation Comments U Preg (test code = U Negative (09/18/2011 N Preg) 10:30:00) [facility] CenterTmjroqsAECMSDZPUF3820-46-28 15:30:00 Test Item Value Reference Range Interpretation Comments UA WBC (test code = UA None Seen (09/18/2011 N WBC) 10:30:00) [facility] CenterMedxmyrBNFUYTTGJE8977-30-89 15:30:00 Test Item Value Reference Range Interpretation Comments UA RBC (test None Seen See_Comment N [Automated mes pastor] code = UA RBC) (09/18/2011 The system wh ich 10:30:00) generated this result transmitted ref erence range: <=2. The reference range was not used to int erpret this result as normal/abnormal . [facility]woodQsbqzoaACLPWETCZF1592-52-96 15:30:00 Test Item Value Reference Range Interpretation Comments UA Bacteria (test code = None Seen (09/18/2011 N UA Bacteria) 10:30:00) [facility]woodUwvjpewUAKWPCDKYT9559-10-36 15:30:00 Test Item Value Reference Range Interpretation Comments UA Amorph Destiny (test Few /HPF A code = UA Amorph Destiny) *ABN*(09/18/2011 10:30:00) [facility]woodHtemtnrMHDWZFMKFR3222-55-01 15:30:00 Test Item Value Reference Range Interpretation Comments Micro? (test code = Performed (09/18/2011 N Micro?) 10:30:00) [facility] KingwoodLkydhcpXAUPXCTSUS9954-55-08 15:30:00 Test Item Value Reference Range Interpretation Comments UA Sq Epi (test code = Rare /LPF (09/18/2011 N UA Sq Epi) 10:30:00) [facility] KingwoodPkbveusGHIDIBRXQH8286-34-48 15:30:00 Test Item Value Reference Range Interpretation Comments UA Ketones (test code = 15 mg/dL A UA Ketones) *ABN*(09/18/2011 10:30:00) [facility]woodXqbkvekQZMLWUHMTB4499-55-92 15:30:00 Test Item Value Reference Range Interpretation Comments UA Glucose (test code = >=1000 mg/dL A UA Glucose) *ABN*(09/18/2011 10:30:00) [facility]woodXpocfxxIUUXNGSMOX8236-23-74 15:30:00 Test Item Value Reference Range Interpretation Comments UA Protein (test code = Trace A UA Protein) *ABN*(09/18/2011 10:30:00) [facility] KingwoodYknsgnjOJYHOGVEAK7414-05-09 15:30:00 Test Item Value Reference Range Interpretation Comments UA Urobilinogen (test code = UA 0.2 0.1-1.0 N Urobilinogen) [facility] KingwoodZksqvacTSLVHRKGIZ2547-68-83 15:30:00 Test Item Value Reference Range Interpretation Comments UA Blood (test code = Negative (09/18/2011 N UA Blood) 10:30:00) [facility] NorthwestIolhifqPPSLKVVDTX7608-76-02 15:30:00 Test Item Value Reference Range Interpretation Comments UA Bili (test code = Negative *NA*(09/18/2011 UA Bili) 10:30:00) [facility] CenterEqctmxpVVXFVJBIGW2429-03-75 15:30:00 Test Item Value Reference Range Interpretation Comments UA Leuk Est (test Negative (09/18/2011 N code = UA Leuk Est) 10:30:00) [facility] CenterFdvykamVOZAJSMCTG2078-68-31 15:30:00 Test Item Value Reference Range Interpretation Comments UA Nitrite (test code Negative (09/18/2011 N = UA Nitrite) 10:30:00) [facility] CenterSrkhcfhXCGSMSULGU4511-49-12 15:30:00 Test Item Value Reference Range Interpretation Comments UA pH (test code = UA pH) 7.5 1 5.0-8.0 N [facility] CenterVekhiokZYQCUNXSKT5410-56-08 15:30:00 Test Item Value Reference Range Interpretation Comments UA Spec Grav (test code = UA Spec 1.010 1 N Grav) [facility] NorthwestCmippwtNYUQKKYOQH4146-58-25 15:30:00 Test Item Value Reference Range Interpretation Comments UA Turbidity (test code Slight Cloudy N = UA Turbidity) (09/18/2011 10:30:00) [facility] CenterQljvbopOLDVUEMBOQ8658-22-91 15:30:00 Test Item Value Reference Range Interpretation Comments UA Color (test code = Yellow *NA*(09/18/2011 UA Color) 10:30:00) [facility] CenterHouzeiyDHFBEZMXN1722-72-94 15:30:00 Test Item Value Reference Range Interpretation Comments U Preg (test code = U Negative (09/18/2011 N Preg) 10:30:00) [facility] CenterQudmhztEYHQAKBQYP5111-28-79 15:30:00 Test Item Value Reference Range Interpretation Comments UA WBC (test code = UA None Seen (09/18/2011 N WBC) 10:30:00) [facility] CenterSqtrhjgMZXDXFMOFF8026-37-34 15:30:00 Test Item Value Reference Range Interpretation Comments UA RBC (test None Seen See_Comment N [Automated mes pastor] code = UA RBC) (09/18/2011 The system wh ich 10:30:00) generated this result transmitted ref erence range: <=2. The reference range was not used to int erpret this result as normal/abnormal . [facility] CenterGnlmvnuNSJIJKRPBN4976-90-27 15:30:00 Test Item Value Reference Range Interpretation Comments UA Bacteria (test code = None Seen (09/18/2011 N UA Bacteria) 10:30:00) [facility] NorthwestTtruclwXFJICGBBVF2577-56-54 15:30:00 Test Item Value Reference Range Interpretation Comments UA Amorph Destiny (test Few /HPF A code = UA Amorph Destiny) *ABN*(09/18/2011 10:30:00) [facility] KingwoodFlxyeiwOMGEIAQSHX5141-37-97 15:30:00 Test Item Value Reference Range Interpretation Comments Micro? (test code = Performed (09/18/2011 N Micro?) 10:30:00) [facility]BbuftkxBEFNZXVAYP7709-24-51 15:30:00 Test Item Value Reference Range Interpretation Comments UA Sq Epi (test code = Rare /LPF (09/18/2011 N UA Sq Epi) 10:30:00) [facility]woodVcfjabjDXUCVDGIVN8740-65-57 15:30:00 Test Item Value Reference Range Interpretation Comments UA Ketones (test code = 15 mg/dL A UA Ketones) *ABN*(09/18/2011 10:30:00) [facility]woodCraexswUNDCIKYNJD7702-28-92 15:30:00 Test Item Value Reference Range Interpretation Comments UA Glucose (test code = >=1000 mg/dL A UA Glucose) *ABN*(09/18/2011 10:30:00) [facility]woodGbqnsylAIHZBZHXGE3301-50-93 15:30:00 Test Item Value Reference Range Interpretation Comments UA Protein (test code = Trace A UA Protein) *ABN*(09/18/2011 10:30:00) [facility]woodSkzuiulPJKFCOGOAF9227-08-65 15:30:00 Test Item Value Reference Range Interpretation Comments UA Urobilinogen (test code = UA 0.2 0.1-1.0 N Urobilinogen) [facility]woodZkhrvoyGZNHMZRHBX1023-38-17 15:30:00 Test Item Value Reference Range Interpretation Comments UA Blood (test code = Negative (09/18/2011 N UA Blood) 10:30:00) [facility]woodKwbbsywHMSOBBUQGC6115-09-90 15:30:00 Test Item Value Reference Range Interpretation Comments UA Bili (test code = Negative *NA*(09/18/2011 UA Bili) 10:30:00) [facility]woodCrijvfhSUJWNQZRSS2480-44-17 15:30:00 Test Item Value Reference Range Interpretation Comments UA Leuk Est (test Negative (09/18/2011 N code = UA Leuk Est) 10:30:00) [facility] CenterVmnhotvSIEVWNSIBY8759-08-51 15:30:00 Test Item Value Reference Range Interpretation Comments UA Nitrite (test code Negative (09/18/2011 N = UA Nitrite) 10:30:00) [facility] CenterZtxdcuhRQAOLQSBGL1425-32-34 15:30:00 Test Item Value Reference Range Interpretation Comments UA pH (test code = UA pH) 7.5 1 5.0-8.0 N [facility] CenterRuycsjiLYJWJDHSZM0556-21-26 15:30:00 Test Item Value Reference Range Interpretation Comments UA Spec Grav (test code = UA Spec 1.010 1 N Grav) [facility] NorthwestYrxlxtfVDXMAJVUUI3718-82-35 15:30:00 Test Item Value Reference Range Interpretation Comments UA Turbidity (test code Slight Cloudy N = UA Turbidity) (09/18/2011 10:30:00) [facility] NorthwestNxxivraZKWSLHFBXW7522-02-32 15:30:00 Test Item Value Reference Range Interpretation Comments UA Color (test code = Yellow *NA*(09/18/2011 UA Color) 10:30:00) [facility] CenterWrhtmwaPNSOPXPTW7164-18-39 15:30:00 Test Item Value Reference Range Interpretation Comments U Preg (test code = U Negative (09/18/2011 N Preg) 10:30:00) [facility] CenterVsuzmveVHNMYPANNY6782-81-30 15:30:00 Test Item Value Reference Range Interpretation Comments UA WBC (test code = UA None Seen (09/18/2011 N WBC) 10:30:00) [facility] CenterLdkhcvnSSJYKSKDSM3937-14-78 15:30:00 Test Item Value Reference Range Interpretation Comments UA RBC (test None Seen See_Comment N [Automated mes pastor] code = UA RBC) (09/18/2011 The system ich 10:30:00) generated this result transmitted ref erence range: <=2. The reference range was not used to int erpret this result as normal/abnormal . [facility] CenterPyxtyacUXJLPMEXWA9037-88-44 15:30:00 Test Item Value Reference Range Interpretation Comments UA Bacteria (test code = None Seen (09/18/2011 N UA Bacteria) 10:30:00) [facility]woodRmzeegzKPHEYWLAMJ1025-96-90 15:30:00 Test Item Value Reference Range Interpretation Comments UA Amorph Destiny (test Few /HPF A code = UA Amorph Destiny) *ABN*(09/18/2011 10:30:00) [facility]woodOihdpcsFHPIOTWCJO8811-95-09 15:30:00 Test Item Value Reference Range Interpretation Comments Micro? (test code = Performed (09/18/2011 N Micro?) 10:30:00) [facility]woodOttnaqmZDQQUGICCJ6795-07-34 15:30:00 Test Item Value Reference Range Interpretation Comments UA Sq Epi (test code = Rare /LPF (09/18/2011 N UA Sq Epi) 10:30:00) [facility]woodOdoydiiPYNLWWZQUZ2669-13-29 15:30:00 Test Item Value Reference Range Interpretation Comments UA Ketones (test code = 15 mg/dL A UA Ketones) *ABN*(09/18/2011 10:30:00) [facility]woodYxebgcmEBBZGSHJBJ2258-93-37 15:30:00 Test Item Value Reference Range Interpretation Comments UA Glucose (test code = >=1000 mg/dL A UA Glucose) *ABN*(09/18/2011 10:30:00) [facility]woodOkemeqzBGZKMXEKAA3476-81-26 15:30:00 Test Item Value Reference Range Interpretation Comments UA Protein (test code = Trace A UA Protein) *ABN*(09/18/2011 10:30:00) [facility]woodIpjoyzvVULXIIANOP8785-54-59 15:30:00 Test Item Value Reference Range Interpretation Comments UA Urobilinogen (test code = UA 0.2 0.1-1.0 N Urobilinogen) [facility]woodFibrdxyFFGXGSPYDX7908-02-55 15:30:00 Test Item Value Reference Range Interpretation Comments UA Blood (test code = Negative (09/18/2011 N UA Blood) 10:30:00) [facility]woodDuaccgfLQGAMFZYVJ3049-74-00 15:30:00 Test Item Value Reference Range Interpretation Comments UA Bili (test code = Negative *NA*(09/18/2011 UA Bili) 10:30:00) [facility]woodCxdqpipGZBCOEWPJA4703-63-43 15:30:00 Test Item Value Reference Range Interpretation Comments UA Leuk Est (test Negative (09/18/2011 N code = UA Leuk Est) 10:30:00) [facility] CenterRzgfolfUCGIFPDICO6757-03-52 15:30:00 Test Item Value Reference Range Interpretation Comments UA Nitrite (test code Negative (09/18/2011 N = UA Nitrite) 10:30:00) [facility] CenterHinywitVZZAITCXGC2721-68-75 15:30:00 Test Item Value Reference Range Interpretation Comments UA pH (test code = UA pH) 7.5 1 5.0-8.0 N [facility] CenterCmiyoheWULNTFSXJK8595-62-87 15:30:00 Test Item Value Reference Range Interpretation Comments UA Spec Grav (test code = UA Spec 1.010 1 N Grav) [facility] CenterLdkvdeoNGPZAGMPIQ0451-42-77 15:30:00 Test Item Value Reference Range Interpretation Comments UA Turbidity (test code Slight Cloudy N = UA Turbidity) (09/18/2011 10:30:00) [facility] NorthwestWkngpllJPCZOVTUFP6030-74-15 15:30:00 Test Item Value Reference Range Interpretation Comments UA Color (test code = Yellow *NA*(09/18/2011 UA Color) 10:30:00) [facility] CenterLgcgwuePJIIPXMYB7287-55-28 15:30:00 Test Item Value Reference Range Interpretation Comments U Preg (test code = U Negative (09/18/2011 N Preg) 10:30:00) [facility] CenterGcwfmqbPDDUPUFBIE1641-10-97 15:30:00 Test Item Value Reference Range Interpretation Comments UA WBC (test code = UA None Seen (09/18/2011 N WBC) 10:30:00) [facility] CenterIhouofdUCRSQGFBEA5605-75-76 15:30:00 Test Item Value Reference Range Interpretation Comments UA RBC (test None Seen See_Comment N [Automated mes pastor] code = UA RBC) (09/18/2011 The system wh ich 10:30:00) generated this result transmitted ref erence range: <=2. The reference range was not used to int erpret this result as normal/abnormal . [facility] CenterKphumxsQLAODVQOWQ4893-77-80 15:30:00 Test Item Value Reference Range Interpretation Comments UA Bacteria (test code = None Seen (09/18/2011 N UA Bacteria) 10:30:00) [facility] CenterNtsatwdXAYCYBIKUB0501-66-41 15:30:00 Test Item Value Reference Range Interpretation Comments UA Amorph Destiny (test Few /HPF A code = UA Amorph Destiny) *ABN*(09/18/2011 10:30:00) [facility] NorthwestBezqgrsVIMLOARMTQ3387-87-67 15:30:00 Test Item Value Reference Range Interpretation Comments Micro? (test code = Performed (09/18/2011 N Micro?) 10:30:00) [facility]woodWcpauhoKNRNCQNPMV0518-10-11 15:30:00 Test Item Value Reference Range Interpretation Comments UA Sq Epi (test code = Rare /LPF (09/18/2011 N UA Sq Epi) 10:30:00) [facility]woodOycorrcYZWZEUXRUH1864-39-90 15:30:00 Test Item Value Reference Range Interpretation Comments UA Ketones (test code = 15 mg/dL A UA Ketones) *ABN*(09/18/2011 10:30:00) [facility]woodZexzbkbXJDMSMNBVI3065-00-15 15:30:00 Test Item Value Reference Range Interpretation Comments UA Glucose (test code = >=1000 mg/dL A UA Glucose) *ABN*(09/18/2011 10:30:00) [facility]woodFqkuuunUKSUYILMIY6958-02-44 15:30:00 Test Item Value Reference Range Interpretation Comments UA Protein (test code = Trace A UA Protein) *ABN*(09/18/2011 10:30:00) [facility]woodImcgcypYICLQGLXXU1995-57-29 15:30:00 Test Item Value Reference Range Interpretation Comments UA Urobilinogen (test code = UA 0.2 0.1-1.0 N Urobilinogen) [facility]woodXveekuiAEFUOWCYSD2886-30-55 15:30:00 Test Item Value Reference Range Interpretation Comments UA Blood (test code = Negative (09/18/2011 N UA Blood) 10:30:00) [facility]woodLaqxmueHIEZSURVPS4747-71-94 15:30:00 Test Item Value Reference Range Interpretation Comments UA Bili (test code = Negative *NA*(09/18/2011 UA Bili) 10:30:00) [facility]woodDqhndgeQAXPIZDVIQ7288-34-38 15:30:00 Test Item Value Reference Range Interpretation Comments UA Leuk Est (test Negative (09/18/2011 N code = UA Leuk Est) 10:30:00) [facility]woodNbwrbttEBEXTYEZFR7205-35-92 15:30:00 Test Item Value Reference Range Interpretation Comments UA Nitrite (test code Negative (09/18/2011 N = UA Nitrite) 10:30:00) [facility]woodHujexrkAUGZHMZYTB6728-49-46 15:30:00 Test Item Value Reference Range Interpretation Comments UA pH (test code = UA pH) 7.5 1 5.0-8.0 N [facility]woodIpmxpdrCYLPFAUGEW1506-04-36 15:30:00 Test Item Value Reference Range Interpretation Comments UA Spec Grav (test code = UA Spec 1.010 1 N Grav) [facility]woodPwboalbWENINZHPUK1797-40-10 15:30:00 Test Item Value Reference Range Interpretation Comments UA Turbidity (test code Slight Cloudy N = UA Turbidity) (09/18/2011 10:30:00) [facility]woodTebjdbzCRNVGQLNHO2322-04-79 15:30:00 Test Item Value Reference Range Interpretation Comments UA Color (test code = Yellow *NA*(09/18/2011 UA Color) 10:30:00) [facility]EzgphipRGIJESZGX2902-36-88 14:07:00 Test Item Value Reference Range Interpretation Comments Phosphorus (test code = Phosphorus) 4.4 2.5-4.5 N [facility] HospitalNywwryfFCOMFYCSX4221-16-87 14:07:00 Test Item Value Reference Range Interpretation Comments Magnesium Lvl (test code = Magnesium 1.6 1.8-2.4 L Lvl) [facility] HospitalPktpdnfVEAZAYDEL7077-15-55 14:07:00 Test Item Value Reference Range Interpretation Comments Phosphorus (test code = Phosphorus) 4.4 2.5-4.5 N [facility] HospitalHlkbcedCVCDQSVNS0482-18-25 14:07:00 Test Item Value Reference Range Interpretation Comments Magnesium Lvl (test code = Magnesium 1.6 1.8-2.4 L Lvl) [facility] HospitalEazfxiqGXZSYDRZO2797-33-87 14:07:00 Test Item Value Reference Range Interpretation Comments Phosphorus (test code = Phosphorus) 4.4 2.5-4.5 N [facility] HospitalTahylfaQWJJZTMEW2177-48-68 14:07:00 Test Item Value Reference Range Interpretation Comments Magnesium Lvl (test code = Magnesium 1.6 1.8-2.4 L Lvl) [facility] HospitalPrlcxewNPVZZDKVO7934-65-03 14:07:00 Test Item Value Reference Range Interpretation Comments Phosphorus (test code = Phosphorus) 4.4 2.5-4.5 N [facility] HospitalDsmhngnSNALRLJPK3596-68-79 14:07:00 Test Item Value Reference Range Interpretation Comments Magnesium Lvl (test code = Magnesium 1.6 1.8-2.4 L Lvl) [facility] HospitalPvnjgymHHWOBSLOX7797-74-06 14:07:00 Test Item Value Reference Range Interpretation Comments Phosphorus (test code = Phosphorus) 4.4 2.5-4.5 N [facility] HospitalHzcwkchIORYLVSFX1285-88-59 14:07:00 Test Item Value Reference Range Interpretation Comments Magnesium Lvl (test code = Magnesium 1.6 1.8-2.4 L Lvl) [facility] GLUCOSE OUADEKF5437-54-10 14:01:00 Test Item Value Reference Range Interpretation Comments Gluc POC Lifscn (test code = Gluc POC no gt 70-99 A Lifscn) [facility] GLUCOSE TCIOURA7496-46-74 14:01:00 Test Item Value Reference Range Interpretation Comments Gluc POC Lifscn (test code = Gluc POC no gt 70-99 A Lifscn) [facility] GLUCOSE VNYVKIE1312-45-32 14:01:00 Test Item Value Reference Range Interpretation Comments Gluc POC Lifscn (test code = Gluc POC no gt 70-99 A Lifscn) [facility] GLUCOSE XRDWUEJ9339-25-22 14:01:00 Test Item Value Reference Range Interpretation Comments Gluc POC Lifscn (test code = Gluc POC no gt 70-99 A Lifscn) [facility] GLUCOSE FUQUIYQ8282-57-35 14:01:00 Test Item Value Reference Range Interpretation Comments Gluc POC Lifscn (test code = Gluc POC no gt 70-99 A Lifscn) [facility] HospitalAqvqjioZNQVRLLPM9588-61-29 13:52:00 Test Item Value Reference Range Interpretation Comments pO2 Roberth (test code = pO2 Roberth) 24 20-49 N [facility] HospitalNdnfvhnZABAKDINJ3512-15-05 13:52:00 Test Item Value Reference Range Interpretation Comments HCO3 Roberth (test code = HCO3 Roberth) 32.0 22.0-26.0 H [facility] HospitalVnrdtqeXVBQHOZUR5023-03-94 13:52:00 Test Item Value Reference Range Interpretation Comments pCO2 Roberth (test code = pCO2 Roberth) 44 38-52 N [facility] HospitalAahkqeqBGJIGQFKC9564-68-09 13:52:00 Test Item Value Reference Range Interpretation Comments BE Roberth (test code = 7 See_Comment H [Automa rohit message] The BE Roberth) system which ge nerated this result transmit rohit reference range : <=2. The reference range was not used to interpr et this result as reji l/abnormal. [facility] HospitalYtaakexYMXEAJAXV0182-39-62 13:52:00 Test Item Value Reference Range Interpretation Comments O2 Sat Roberth (test code = O2 Sat Roberth) 48.0 40.0-70.0 N [facility] HospitalYxfppnaECVAEAWPK4633-83-04 13:52:00 Test Item Value Reference Range Interpretation Comments Temp Roberth (test code = Temp Roberth) 37.0 [facility] HospitalEwwmedvXFHDVWKMO2498-28-47 13:52:00 Test Item Value Reference Range Interpretation Comments pH Roberth (test code = pH Roberth) 7.47 7.28-7.42 H [facility] HospitalBsqfcopAHIIZAGUF3027-84-45 13:52:00 Test Item Value Reference Range Interpretation Comments Calcium Lvl (test code = Calcium Lvl) 10.1 8.5-10.5 N [facility] HospitalFmchfmvPUWUCTPPF4892-16-82 13:52:00 Test Item Value Reference Range Interpretation Comments Chloride Lvl (test code = Chloride Lvl) 92 95-109 L [facility] HospitalNqebavxGSVJBJIVX0871-77-33 13:52:00 Test Item Value Reference Range Interpretation Comments CO2 (test code = CO2) 30 24-32 N [facility] HospitalRinyznuSXXOUVTSF3240-08-57 13:52:00 Test Item Value Reference Range Interpretation Comments Potassium Lvl (test code = Potassium 3.5 3.5-5.1 N Lvl) [facility] HospitalMecgngaWGEFVBSKV3209-21-40 13:52:00 Test Item Value Reference Range Interpretation Comments Sodium Lvl (test code = Sodium Lvl) 133 135-145 L [facility] HospitalFrcdsgyXKNVQLSSR9210-88-31 13:52:00 Test Item Value Reference Range Interpretation Comments Creatinine Lvl (test code = Creatinine 1.3 0.5-1.4 N Lvl) [facility] HospitalHwpgoadVOWHZQQJU2173-77-43 13:52:00 Test Item Value Reference Range Interpretation Comments Glucose Lvl (test code = Glucose Lvl) 383 70-99 H [facility] HospitalIfyjlnhORIYFVNUK8309-60-20 13:52:00 Test Item Value Reference Range Interpretation Comments BUN (test code = BUN) 17 7-22 N [facility] HospitalXuwpdllHHNDZZQEI0420-93-15 13:52:00 Test Item Value Reference Range Interpretation Comments AGAP (test code = AGAP) 14.5 10.0-20.0 N [facility]BgqcsmfPXQULUGNUV5120-08-11 13:52:00 Test Item Value Reference Range Interpretation Comments MPV (test code = MPV) 12.0 7.4-10.4 H [facility] CenterTtncijdPEONGBUIPP8960-61-21 13:52:00 Test Item Value Reference Range Interpretation Comments Platelet (test code = Platelet) 226 133-450 N [facility] CenterTkqnggmFCRPDAOZDX0300-65-95 13:52:00 Test Item Value Reference Range Interpretation Comments MCHC (test code = MCHC) 33.7 32.0-36.0 N [facility] CenterDpyerntDOWXIVTGHX4654-23-13 13:52:00 Test Item Value Reference Range Interpretation Comments MCH (test code = MCH) 28.5 pg 27.0-31.0 N [facility] CenterVlicugbSQGVDHJTHQ9793-92-19 13:52:00 Test Item Value Reference Range Interpretation Comments RDW (test code = RDW) 15.1 11.5-14.5 H [facility] CenterNhasggvREWTLFEBNI7528-01-14 13:52:00 Test Item Value Reference Range Interpretation Comments MCV (test code = MCV) 84.6 81.0-99.0 N [facility] CenterXerhfcmYHQELRTKUN7730-40-13 13:52:00 Test Item Value Reference Range Interpretation Comments Hct (test code = Hct) 36.4 36.0-48.0 N [facility] CenterAtxmljlQNMHUQVZUY0719-29-35 13:52:00 Test Item Value Reference Range Interpretation Comments Hgb (test code = Hgb) 12.3 12.0-16.0 N [facility] CenterShhdnmrWOFVUUBZRV4812-46-50 13:52:00 Test Item Value Reference Range Interpretation Comments RBC (test code = RBC) 4.30 4.20-5.40 N [facility] CenterBwirhddFFVOTDWVWX1625-22-35 13:52:00 Test Item Value Reference Range Interpretation Comments WBC (test code = WBC) 11.7 3.7-10.4 H [facility] CenterBpkloewYHFJDEBWNI6216-90-73 13:52:00 Test Item Value Reference Range Interpretation Comments Monocytes (test code = Monocytes) 2.9 2.0-12.0 N [facility] CenterAlebijeHWHHNXXQVP3790-19-07 13:52:00 Test Item Value Reference Range Interpretation Comments Eosinophils (test code = 0.2 See_Comment N [A utomated message] The Eosinophils) system which ge nerated this result tra nsmitted reference range : <=4.0. The reference r leo was not used to int erpret this result as normal/abnormal . [facility] CenterDcxtqkcVZFNTDFWCD4798-67-74 13:52:00 Test Item Value Reference Range Interpretation Comments Basophils (test code = 0.0 See_Comment N [Aut omated message] The Basophils) system which ge nerated this result tra nsmitted reference range : <=1.0. The reference r leo was not used to int erpret this result as normal/abnormal . [facility] CenterEminehyRFGTESOHVR2538-19-09 13:52:00 Test Item Value Reference Range Interpretation Comments Eosinophils # (test code 0.0 See_Comment N [A utomated message] The = Eosinophils #) system [facility] h generated this result tra nsmitted reference range : <=0.5. The reference r leo was not used to int erpret this result as normal/abnormal . [facility] CenterHmvlcecTYJKHTPXUN2490-92-65 13:52:00 Test Item Value Reference Range Interpretation Comments Monocytes # (test code 0.3 See_Comment N [Aut omated message] The = Monocytes #) system which generated this result tra nsmitted reference range : <=0.8. The reference r leo was not used to int erpret this result as normal/abnormal . [facility] CenterKodebzjCBEXBABXXH1831-58-29 13:52:00 Test Item Value Reference Range Interpretation Comments Segs (test code = Segs) 92.0 45.0-75.0 H [facility] CenterDwmuvxmXOSUJOZJCS4956-44-49 13:52:00 Test Item Value Reference Range Interpretation Comments Lymphocytes (test code = Lymphocytes) 4.9 20.0-40.0 L [facility] CenterGyezdmiGVTPXKKKWX1087-53-10 13:52:00 Test Item Value Reference Range Interpretation Comments Spherocyte (test code = Rare A Spherocyte) *ABN*(09/18/2011 08:52:00) [facility] CenterXfzomejDLTLOSJUSP6467-90-59 13:52:00 Test Item Value Reference Range Interpretation Comments Large Plt (test code = Slight *ABN*(09/18/2011 A Large Plt) 08:52:00) [facility] CenterJyjwihxINFAWXPDGQ9525-94-02 13:52:00 Test Item Value Reference Range Interpretation Comments Microcyte (test code = 1+ *ABN*(09/18/2011 A Microcyte) 08:52:00) [facility] CenterXyvuqrsJEPHSEPVQJ7443-75-40 13:52:00 Test Item Value Reference Range Interpretation Comments Schistocyte (test code = Schistocyte) Rare [facility] CenterEuotsnnMQWDBUAVML8797-47-36 13:52:00 Test Item Value Reference Range Interpretation Comments Macrocyte (test code = 1+ *ABN*(09/18/2011 A Macrocyte) 08:52:00) [facility] CenterJkwpgynZKKKLZJKLR0934-26-84 13:52:00 Test Item Value Reference Range Interpretation Comments Lymphocytes # (test code = Lymphocytes 0.6 1.0-5.5 L #) [facility] CenterGucyeymRYDDZPCWJY9703-65-81 13:52:00 Test Item Value Reference Range Interpretation Comments Segs-Bands # (test code = Segs-Bands #) 10.8 1.5-8.1 H [facility] CenterOzgzlgsHFOCOZHNSW0500-50-94 13:52:00 Test Item Value Reference Range Interpretation Comments Basophils # (test code 0.0 See_Comment N [Aut omated message] The = Basophils #) system which generated this result tra nsmitted reference range : <=0.2. The reference r leo was not used to int erpret this result as normal/abnormal . [facility] CenterUmbnfttJVBWYFGJAF5298-64-44 13:52:00 Test Item Value Reference Range Interpretation Comments Anisocyte (test code = 1+ *ABN*(09/18/2011 A Anisocyte) 08:52:00) [facility] CenterApshyrfOWHIJEEZBQ6901-12-19 13:52:00 Test Item Value Reference Range Interpretation Comments CDC-HIV 1/2 Ab (test Negative *NA*(09/18/2011 code = CDC-HIV 1/2 08:52:00) Ab) [facility]TggtuzrKMWXLTUVU5845-89-05 13:52:00 Test Item Value Reference Range Interpretation Comments pO2 Roberth (test code = pO2 Roberth) 24 20-49 N [facility] HospitalGlbxiqpQNKUZMDDL7348-03-86 13:52:00 Test Item Value Reference Range Interpretation Comments HCO3 Roberth (test code = HCO3 Roberth) 32.0 22.0-26.0 H [facility] HospitalNoyaedvIQOZLRIWT1923-75-54 13:52:00 Test Item Value Reference Range Interpretation Comments pCO2 Roberth (test code = pCO2 Robreth) 44 38-52 N [facility] HospitalFtldefvACWRYQJAM1919-60-34 13:52:00 Test Item Value Reference Range Interpretation Comments BE Roberth (test code = 7 See_Comment H [Automa rohit message] The BE Roberth) system which ge nerated this result transmit rohit reference range : <=2. The reference range was not used to interpr et this result as reji l/abnormal. [facility] HospitalMgbrbrqHPZXXTBFX2742-47-80 13:52:00 Test Item Value Reference Range Interpretation Comments O2 Sat Roberth (test code = O2 Sat Roberth) 48.0 40.0-70.0 N [facility] HospitalIhforhrGQXBECSIR8014-63-43 13:52:00 Test Item Value Reference Range Interpretation Comments Temp Roberth (test code = Temp Roberth) 37.0 [facility] HospitalStdqvrfZRYXHEVJF7232-96-49 13:52:00 Test Item Value Reference Range Interpretation Comments pH Roberth (test code = pH Roberth) 7.47 7.28-7.42 H [facility] HospitalPwfxwciAQJBFEWHJ6842-69-86 13:52:00 Test Item Value Reference Range Interpretation Comments Calcium Lvl (test code = Calcium Lvl) 10.1 8.5-10.5 N [facility] HospitalPpqnfqdXBRDJEFHM6308-74-85 13:52:00 Test Item Value Reference Range Interpretation Comments Chloride Lvl (test code = Chloride Lvl) 92 95-109 L [facility] HospitalRxkzxguKHUWLFMPR7819-01-42 13:52:00 Test Item Value Reference Range Interpretation Comments CO2 (test code = CO2) 30 24-32 N [facility] HospitalHhxqwwcHHRLTIHKO4194-44-02 13:52:00 Test Item Value Reference Range Interpretation Comments Potassium Lvl (test code = Potassium 3.5 3.5-5.1 N Lvl) [facility] HospitalPzlxknfRMMNOZVRR0283-26-59 13:52:00 Test Item Value Reference Range Interpretation Comments Sodium Lvl (test code = Sodium Lvl) 133 135-145 L [facility] HospitalCdvhgycIEJQUFNZS7857-35-96 13:52:00 Test Item Value Reference Range Interpretation Comments Creatinine Lvl (test code = Creatinine 1.3 0.5-1.4 N Lvl) [facility] HospitalNlakoxzVFKBPSXPJ5511-69-99 13:52:00 Test Item Value Reference Range Interpretation Comments Glucose Lvl (test code = Glucose Lvl) 383 70-99 H [facility] HospitalQbxrwdrYSGPIRXLX6884-21-88 13:52:00 Test Item Value Reference Range Interpretation Comments BUN (test code = BUN) 17 7-22 N [facility]MnfnveiNSDCOMARC7230-54-95 13:52:00 Test Item Value Reference Range Interpretation Comments AGAP (test code = AGAP) 14.5 10.0-20.0 [facility]NgzvgxkALBLULPKCJ9800-59-48 13:52:00 Test Item Value Reference Range Interpretation Comments MPV (test code = MPV) 12.0 7.4-10.4 H [facility] CenterRsnzjwrPIKJJNIVFH1067-52-27 13:52:00 Test Item Value Reference Range Interpretation Comments Platelet (test code = Platelet) 226 133-450 N [facility] CenterQujdvvuUIONCRPHGJ6516-30-89 13:52:00 Test Item Value Reference Range Interpretation Comments MCHC (test code = MCHC) 33.7 32.0-36.0 N [facility] CenterIdatfumGLCGMXZMVO5054-52-05 13:52:00 Test Item Value Reference Range Interpretation Comments MCH (test code = MCH) 28.5 pg 27.0-31.0 N [facility] CenterMpmdduiDYKCMRZOWP9919-49-59 13:52:00 Test Item Value Reference Range Interpretation Comments RDW (test code = RDW) 15.1 11.5-14.5 H [facility] CenterUovigckXFVBHRUNIC2707-35-03 13:52:00 Test Item Value Reference Range Interpretation Comments MCV (test code = MCV) 84.6 81.0-99.0 N [facility] CenterWquexwtRUQJNEAYRQ3027-65-07 13:52:00 Test Item Value Reference Range Interpretation Comments Hct (test code = Hct) 36.4 36.0-48.0 N [facility] CenterZetuegrDKFPBGKZJV9332-05-67 13:52:00 Test Item Value Reference Range Interpretation Comments Hgb (test code = Hgb) 12.3 12.0-16.0 N [facility] CenterAojtcryMNBRKSAQNY2973-93-22 13:52:00 Test Item Value Reference Range Interpretation Comments RBC (test code = RBC) 4.30 4.20-5.40 N [facility] CenterFeoghthPTUPLNJPLS7560-45-13 13:52:00 Test Item Value Reference Range Interpretation Comments WBC (test code = WBC) 11.7 3.7-10.4 H [facility] CenterLlnyetyWDWMTKJKDN5076-30-99 13:52:00 Test Item Value Reference Range Interpretation Comments Monocytes (test code = Monocytes) 2.9 2.0-12.0 N [facility] CenterFjtuqfgPKDZVHGWJS4047-08-38 13:52:00 Test Item Value Reference Range Interpretation Comments Eosinophils (test code = 0.2 See_Comment N [A utomated message] The Eosinophils) system which ge nerated this result tra nsmitted reference range : <=4.0. The reference r leo was not used to int erpret this result as normal/abnormal . [facility] CenterSjeonjsBIWLAJDLUR8454-16-91 13:52:00 Test Item Value Reference Range Interpretation Comments Basophils (test code = 0.0 See_Comment N [Aut omated message] The Basophils) system which ge nerated this result tra nsmitted reference range : <=1.0. The reference r leo was not used to int erpret this result as normal/abnormal . [facility] CenterUrlgayiBAQEJDHZOE0821-53-95 13:52:00 Test Item Value Reference Range Interpretation Comments Eosinophils # (test code 0.0 See_Comment N [A utomated message] The = Eosinophils #) system whic h generated this result tra nsmitted reference range : <=0.5. The reference r leo was not used to int erpret this result as normal/abnormal . [facility] CenterAhmcxqtLNFHNGSMZX2161-52-55 13:52:00 Test Item Value Reference Range Interpretation Comments Monocytes # (test code 0.3 See_Comment N [Aut omated message] The = Monocytes #) system which generated this result tra nsmitted reference range : <=0.8. The reference r leo was not used to int erpret this result as normal/abnormal . [facility] CenterLkxnazfJZERELYNPG8233-67-52 13:52:00 Test Item Value Reference Range Interpretation Comments Segs (test code = Segs) 92.0 45.0-75.0 H [facility] CenterBgfzxvgGMOOLHPTQX6897-00-19 13:52:00 Test Item Value Reference Range Interpretation Comments Lymphocytes (test code = Lymphocytes) 4.9 20.0-40.0 L [facility] CenterFvwinluRUPFAWVEOZ3953-64-59 13:52:00 Test Item Value Reference Range Interpretation Comments Spherocyte (test code = Rare A Spherocyte) *ABN*(09/18/2011 08:52:00) [facility] CenterDzglhfaXCODZRSZKY9364-58-97 13:52:00 Test Item Value Reference Range Interpretation Comments Large Plt (test code = Slight *ABN*(09/18/2011 A Large Plt) 08:52:00) [facility] CenterLjsvugeRABOMMENFT0798-77-50 13:52:00 Test Item Value Reference Range Interpretation Comments Microcyte (test code = 1+ *ABN*(09/18/2011 A Microcyte) 08:52:00) [facility] CenterGlmkcicCBXZFNKPTV1310-11-99 13:52:00 Test Item Value Reference Range Interpretation Comments Schistocyte (test code = Schistocyte) Rare [facility] CenterDofhungOPCGUHUYNF4090-71-12 13:52:00 Test Item Value Reference Range Interpretation Comments Macrocyte (test code = 1+ *ABN*(09/18/2011 A Macrocyte) 08:52:00) [facility] CenterXhrjpaiKPQQQPKJOY4945-36-21 13:52:00 Test Item Value Reference Range Interpretation Comments Lymphocytes # (test code = Lymphocytes 0.6 1.0-5.5 L #) [facility] CenterZousssrSFOMILEJZN9620-97-19 13:52:00 Test Item Value Reference Range Interpretation Comments Segs-Bands # (test code = Segs-Bands #) 10.8 1.5-8.1 H [facility] CenterFpcpkcdRLKZXPCTQW1584-69-98 13:52:00 Test Item Value Reference Range Interpretation Comments Basophils # (test code 0.0 See_Comment N [Aut omated message] The = Basophils #) system which generated this result tra nsmitted reference range : <=0.2. The reference r leo was not used to int erpret this result as normal/abnormal . [facility] CenterTsvytqfWHVJSEXIIU6914-97-85 13:52:00 Test Item Value Reference Range Interpretation Comments Anisocyte (test code = 1+ *ABN*(09/18/2011 A Anisocyte) 08:52:00) [facility]UhdspctYPZIBDMTUZ2076-60-03 13:52:00 Test Item Value Reference Range Interpretation Comments CDC-HIV 1/2 Ab (test Negative *NA*(09/18/2011 code = CDC-HIV 1/2 08:52:00) Ab) [facility]OpqlmmrIPLMWFUYT2142-03-79 13:52:00 Test Item Value Reference Range Interpretation Comments pO2 Roberth (test code = pO2 Roberth) 24 20-49 N [facility] HospitalEnuelzvBPLTATKSD2078-73-85 13:52:00 Test Item Value Reference Range Interpretation Comments HCO3 Roberth (test code = HCO3 Roberth) 32.0 22.0-26.0 H [facility] HospitalYibocvfJQWLCRBQU4967-74-98 13:52:00 Test Item Value Reference Range Interpretation Comments pCO2 Roberth (test code = pCO2 Roberth) 44 38-52 N [facility] HospitalMamgmbsWBYVHCNHZ4931-93-24 13:52:00 Test Item Value Reference Range Interpretation Comments BE Roberth (test code = 7 See_Comment H [Automa rohit message] The BE Roberth) system which ge nerated this result transmit rohit reference range : <=2. The reference range was not used to interpr et this result as reji l/abnormal. [facility] HospitalZrhgvorMRZAAPWER3709-95-04 13:52:00 Test Item Value Reference Range Interpretation Comments O2 Sat Roberth (test code = O2 Sat Roberth) 48.0 40.0-70.0 N [facility] HospitalTmsvpknLWNXNECBX0072-13-63 13:52:00 Test Item Value Reference Range Interpretation Comments Temp Roberth (test code = Temp Roberth) 37.0 [facility] HospitalArxbukdBGGPTJANF8696-48-06 13:52:00 Test Item Value Reference Range Interpretation Comments pH Roberth (test code = pH Roberth) 7.47 7.28-7.42 H [facility] HospitalIjktekxHTBYIYFQQ7742-74-43 13:52:00 Test Item Value Reference Range Interpretation Comments Calcium Lvl (test code = Calcium Lvl) 10.1 8.5-10.5 N [facility] HospitalVjfwntnJPONLEVWU1615-22-93 13:52:00 Test Item Value Reference Range Interpretation Comments Chloride Lvl (test code = Chloride Lvl) 92 95-109 L [facility] HospitalInjmuscUYERDWTVE0019-12-66 13:52:00 Test Item Value Reference Range Interpretation Comments CO2 (test code = CO2) 30 24-32 N [facility] HospitalSobeimvVKCNJMKEP0279-63-03 13:52:00 Test Item Value Reference Range Interpretation Comments Potassium Lvl (test code = Potassium 3.5 3.5-5.1 N Lvl) [facility] HospitalQodupqdRNJGRMQVR6376-46-21 13:52:00 Test Item Value Reference Range Interpretation Comments Sodium Lvl (test code = Sodium Lvl) 133 135-145 L [facility] HospitalWixdhlkDISPZZNPH9891-47-40 13:52:00 Test Item Value Reference Range Interpretation Comments Creatinine Lvl (test code = Creatinine 1.3 0.5-1.4 N Lvl) [facility] HospitalNkyyicqHISPPSNEY3269-23-60 13:52:00 Test Item Value Reference Range Interpretation Comments Glucose Lvl (test code = Glucose Lvl) 383 70-99 H [facility] HospitalKovxhrsZFWKSYTKL0426-05-25 13:52:00 Test Item Value Reference Range Interpretation Comments BUN (test code = BUN) 17 7-22 N [facility] HospitalQfqqfrvFMTWWXAIT1570-21-53 13:52:00 Test Item Value Reference Range Interpretation Comments AGAP (test code = AGAP) 14.5 10.0-20.0 N [facility] CenterDaygrsxYIIDLQXUMG5691-04-07 13:52:00 Test Item Value Reference Range Interpretation Comments MPV (test code = MPV) 12.0 7.4-10.4 H [facility] CenterXwoapfoZKPKEGDOUO4974-57-94 13:52:00 Test Item Value Reference Range Interpretation Comments Platelet (test code = Platelet) 226 133-450 N [facility] CenterMozazxpFBYJUIGMRJ4553-24-13 13:52:00 Test Item Value Reference Range Interpretation Comments MCHC (test code = MCHC) 33.7 32.0-36.0 N [facility] CenterNumjtsdGWJLVYDSVI5713-11-15 13:52:00 Test Item Value Reference Range Interpretation Comments MCH (test code = MCH) 28.5 pg 27.0-31.0 N [facility] CenterJlotqkkETHZKXUEPR7978-83-85 13:52:00 Test Item Value Reference Range Interpretation Comments RDW (test code = RDW) 15.1 11.5-14.5 H [facility] CenterJpsqfeuKINDXZCGTO7222-18-66 13:52:00 Test Item Value Reference Range Interpretation Comments MCV (test code = MCV) 84.6 81.0-99.0 N [facility] CenterZwqoanqINDPZZDSMI7675-80-95 13:52:00 Test Item Value Reference Range Interpretation Comments Hct (test code = Hct) 36.4 36.0-48.0 N [facility] CenterOgqonizOWVEXPIVCD5917-35-35 13:52:00 Test Item Value Reference Range Interpretation Comments Hgb (test code = Hgb) 12.3 12.0-16.0 N [facility] CenterYnzdsnyRZSOGJHUFH3405-91-74 13:52:00 Test Item Value Reference Range Interpretation Comments RBC (test code = RBC) 4.30 4.20-5.40 N [facility] CenterUondzurARISVVUIWN0954-39-37 13:52:00 Test Item Value Reference Range Interpretation Comments WBC (test code = WBC) 11.7 3.7-10.4 H [facility] CenterKajroucLXSXWHTTSL3058-14-66 13:52:00 Test Item Value Reference Range Interpretation Comments Monocytes (test code = Monocytes) 2.9 2.0-12.0 N [facility] CenterIaqbpsfQVNDESRKVE0004-46-50 13:52:00 Test Item Value Reference Range Interpretation Comments Eosinophils (test code = 0.2 See_Comment N [A utomated message] The Eosinophils) system which ge nerated this result tra nsmitted reference range : <=4.0. The reference r leo was not used to int erpret this result as normal/abnormal . [facility] CenterLmkbftbIVRGLQCEJJ6794-40-97 13:52:00 Test Item Value Reference Range Interpretation Comments Basophils (test code = 0.0 See_Comment N [Aut omated message] The Basophils) system which ge nerated this result tra nsmitted reference range : <=1.0. The reference r leo was not used to int erpret this result as normal/abnormal . [facility] CenterSqzlxwxREWJYMWECS5138-05-92 13:52:00 Test Item Value Reference Range Interpretation Comments Eosinophils # (test code 0.0 See_Comment N [A utomated message] The = Eosinophils #) system [facility] h generated this result tra nsmitted reference range : <=0.5. The reference r leo was not used to int erpret this result as normal/abnormal . [facility] CenterPjxeusyFNGDHXGHRR4360-93-22 13:52:00 Test Item Value Reference Range Interpretation Comments Monocytes # (test code 0.3 See_Comment N [Aut omated message] The = Monocytes #) system which generated this result tra nsmitted reference range : <=0.8. The reference r leo was not used to int erpret this result as normal/abnormal . [facility] CenterNzhcjpaRIECEDDXJX4516-73-96 13:52:00 Test Item Value Reference Range Interpretation Comments Segs (test code = Segs) 92.0 45.0-75.0 H [facility] CenterLolsdikINVBTWOVTJ2369-36-43 13:52:00 Test Item Value Reference Range Interpretation Comments Lymphocytes (test code = Lymphocytes) 4.9 20.0-40.0 L [facility] CenterOqdckyhTIOHWAWOPH9922-29-54 13:52:00 Test Item Value Reference Range Interpretation Comments Spherocyte (test code = Rare A Spherocyte) *ABN*(09/18/2011 08:52:00) [facility] CenterJowfxwfVLPMTSRLAT3117-23-69 13:52:00 Test Item Value Reference Range Interpretation Comments Large Plt (test code = Slight *ABN*(09/18/2011 A Large Plt) 08:52:00) [facility] CenterJkvrgfkZDARIYPNJA4837-84-74 13:52:00 Test Item Value Reference Range Interpretation Comments Microcyte (test code = 1+ *ABN*(09/18/2011 A Microcyte) 08:52:00) [facility] CenterVlvlaujHIEXETOJGA5998-49-65 13:52:00 Test Item Value Reference Range Interpretation Comments Schistocyte (test code = Schistocyte) Rare [facility] CenterRtlglxcIBSWBJIZXK7829-71-10 13:52:00 Test Item Value Reference Range Interpretation Comments Macrocyte (test code = 1+ *ABN*(09/18/2011 A Macrocyte) 08:52:00) [facility] CenterObdzpdeYXVNHXOGWW9029-88-12 13:52:00 Test Item Value Reference Range Interpretation Comments Lymphocytes # (test code = Lymphocytes 0.6 1.0-5.5 L #) [facility] CenterHhhdjcdSOAIVUMBDO0937-90-89 13:52:00 Test Item Value Reference Range Interpretation Comments Segs-Bands # (test code = Segs-Bands #) 10.8 1.5-8.1 H [facility] CenterHfasgwyPEWHWMEGYR7666-94-37 13:52:00 Test Item Value Reference Range Interpretation Comments Basophils # (test code 0.0 See_Comment N [Aut omated message] The = Basophils #) system which generated this result tra nsmitted reference range : <=0.2. The reference r leo was not used to int erpret this result as normal/abnormal . [facility] CenterNknowlhRMAVEMPIEF8060-98-44 13:52:00 Test Item Value Reference Range Interpretation Comments Anisocyte (test code = 1+ *ABN*(09/18/2011 A Anisocyte) 08:52:00) [facility]QlhlgloNNNKNFSOTH2939-06-47 13:52:00 Test Item Value Reference Range Interpretation Comments CDC-HIV 1/2 Ab (test Negative *NA*(09/18/2011 code = CDC-HIV 1/2 08:52:00) Ab) [facility]BtuhbvqRSIIUKWFH1126-85-35 13:52:00 Test Item Value Reference Range Interpretation Comments pO2 Roberth (test code = pO2 Roberth) 24 20-49 N [facility] HospitalBqreknmYZQIXSRFB6707-55-72 13:52:00 Test Item Value Reference Range Interpretation Comments HCO3 Roberth (test code = HCO3 Roberth) 32.0 22.0-26.0 H [facility] HospitalYjsnmdfSRONYQCYD8265-02-98 13:52:00 Test Item Value Reference Range Interpretation Comments pCO2 Roberth (test code = pCO2 Roberth) 44 38-52 N [facility] HospitalGypuhwdXRJKCDEUC0687-56-31 13:52:00 Test Item Value Reference Range Interpretation Comments BE Roberth (test code = 7 See_Comment H [Automa rohit message] The BE Roberth) system which ge nerated this result transmit rohit reference range : <=2. The reference range was not used to interpr et this result as reji l/abnormal. [facility] HospitalXcicsohOIRFKSJQB2682-94-58 13:52:00 Test Item Value Reference Range Interpretation Comments O2 Sat Roberth (test code = O2 Sat Roberth) 48.0 40.0-70.0 N [facility] HospitalDblkbmuMVEYFJOKJ3449-65-68 13:52:00 Test Item Value Reference Range Interpretation Comments Temp Roberth (test code = Temp Roberth) 37.0 [facility] HospitalAukzgfqVDUILEEUO5449-47-07 13:52:00 Test Item Value Reference Range Interpretation Comments pH Roberth (test code = pH Roberth) 7.47 7.28-7.42 H [facility] HospitalLivigfxAMQKINVGM0037-54-12 13:52:00 Test Item Value Reference Range Interpretation Comments Calcium Lvl (test code = Calcium Lvl) 10.1 8.5-10.5 N [facility] HospitalHhqgdafCBREUEDNA1359-97-27 13:52:00 Test Item Value Reference Range Interpretation Comments Chloride Lvl (test code = Chloride Lvl) 92 95-109 L [facility] HospitalAjodbqiBKKQAZBFP1820-89-61 13:52:00 Test Item Value Reference Range Interpretation Comments CO2 (test code = CO2) 30 24-32 N [facility] HospitalJswhmfuQZCXCKDFA2994-48-91 13:52:00 Test Item Value Reference Range Interpretation Comments Potassium Lvl (test code = Potassium 3.5 3.5-5.1 N Lvl) [facility] HospitalTtegykmEJMLTRCVG6336-04-68 13:52:00 Test Item Value Reference Range Interpretation Comments Sodium Lvl (test code = Sodium Lvl) 133 135-145 L [facility] HospitalNsbgdqoPDMZPAFXM9469-80-38 13:52:00 Test Item Value Reference Range Interpretation Comments Creatinine Lvl (test code = Creatinine 1.3 0.5-1.4 N Lvl) [facility] HospitalFdmkhadGFBTQTTWV0078-32-75 13:52:00 Test Item Value Reference Range Interpretation Comments Glucose Lvl (test code = Glucose Lvl) 383 70-99 H [facility] HospitalArtrupeSDCBGQBYZ3227-44-98 13:52:00 Test Item Value Reference Range Interpretation Comments BUN (test code = BUN) 17 7-22 N [facility] HospitalHuzcmmyRZVSOPOZF8813-80-03 13:52:00 Test Item Value Reference Range Interpretation Comments AGAP (test code = AGAP) 14.5 10.0-20.0 N [facility] CenterKnkqutnHQESNHSJWV4247-60-04 13:52:00 Test Item Value Reference Range Interpretation Comments MPV (test code = MPV) 12.0 7.4-10.4 H [facility] CenterQvmfwrcWBKPGPUQWB4918-91-35 13:52:00 Test Item Value Reference Range Interpretation Comments Platelet (test code = Platelet) 226 133-450 N [facility] CenterQdktspiQNFEEJRALD6870-66-80 13:52:00 Test Item Value Reference Range Interpretation Comments MCHC (test code = MCHC) 33.7 32.0-36.0 N [facility] CenterOdjykjtJVKVIEJKMT0164-76-72 13:52:00 Test Item Value Reference Range Interpretation Comments MCH (test code = MCH) 28.5 pg 27.0-31.0 N [facility] CenterPijdyisWOSFWVQFLV6249-45-27 13:52:00 Test Item Value Reference Range Interpretation Comments RDW (test code = RDW) 15.1 11.5-14.5 H [facility] CenterOxrguhpSNJSJAIWXF3239-70-61 13:52:00 Test Item Value Reference Range Interpretation Comments MCV (test code = MCV) 84.6 81.0-99.0 N [facility] CenterPtdfopjWCMTAREDPP0576-23-63 13:52:00 Test Item Value Reference Range Interpretation Comments Hct (test code = Hct) 36.4 36.0-48.0 N [facility] CenterTdhkesxHQVSJGMKLJ2205-19-94 13:52:00 Test Item Value Reference Range Interpretation Comments Hgb (test code = Hgb) 12.3 12.0-16.0 N [facility] CenterGhkjfgqZQNFBCXNSZ8032-10-68 13:52:00 Test Item Value Reference Range Interpretation Comments RBC (test code = RBC) 4.30 4.20-5.40 N [facility] CenterPhajjryAINJJNSAUW0716-91-00 13:52:00 Test Item Value Reference Range Interpretation Comments WBC (test code = WBC) 11.7 3.7-10.4 H [facility] CenterDfznuggCAGYFEXCKK5023-17-30 13:52:00 Test Item Value Reference Range Interpretation Comments Monocytes (test code = Monocytes) 2.9 2.0-12.0 N [facility] CenterWlnnbdcDDNWLYSNRF6627-74-98 13:52:00 Test Item Value Reference Range Interpretation Comments Eosinophils (test code = 0.2 See_Comment N [A utomated message] The Eosinophils) system which ge nerated this result tra nsmitted reference range : <=4.0. The reference r leo was not used to int erpret this result as normal/abnormal . [facility] CenterSmaawlkPLXDMACBHC5789-48-37 13:52:00 Test Item Value Reference Range Interpretation Comments Basophils (test code = 0.0 See_Comment N [Aut omated message] The Basophils) system which ge nerated this result tra nsmitted reference range : <=1.0. The reference r leo was not used to int erpret this result as normal/abnormal . [facility] CenterNyhvotvYQMFJAJMVQ1041-49-89 13:52:00 Test Item Value Reference Range Interpretation Comments Eosinophils # (test code 0.0 See_Comment N [A utomated message] The = Eosinophils #) system whic h generated this result tra nsmitted reference range : <=0.5. The reference r leo was not used to int erpret this result as normal/abnormal . [facility] CenterSufquspLTRNRYPKTX9663-69-23 13:52:00 Test Item Value Reference Range Interpretation Comments Monocytes # (test code 0.3 See_Comment N [Aut omated message] The = Monocytes #) system which generated this result tra nsmitted reference range : <=0.8. The reference r leo was not used to int erpret this result as normal/abnormal . [facility] CenterTeqbtfdABTQFDHSTV9583-82-93 13:52:00 Test Item Value Reference Range Interpretation Comments Segs (test code = Segs) 92.0 45.0-75.0 H [facility] CenterJcrmwhkDBMLQBLCWK0559-62-04 13:52:00 Test Item Value Reference Range Interpretation Comments Lymphocytes (test code = Lymphocytes) 4.9 20.0-40.0 L [facility] CenterBxoooxhVWUSZBZOJW4830-40-63 13:52:00 Test Item Value Reference Range Interpretation Comments Spherocyte (test code = Rare A Spherocyte) *ABN*(09/18/2011 08:52:00) [facility] CenterVxlkdiqICVOQEJMGB8507-56-54 13:52:00 Test Item Value Reference Range Interpretation Comments Large Plt (test code = Slight *ABN*(09/18/2011 A Large Plt) 08:52:00) [facility] CenterDarygxeLQADRKCCEC4110-76-42 13:52:00 Test Item Value Reference Range Interpretation Comments Microcyte (test code = 1+ *ABN*(09/18/2011 A Microcyte) 08:52:00) [facility] CenterErilidnFTBTLSJEQM9752-92-47 13:52:00 Test Item Value Reference Range Interpretation Comments Schistocyte (test code = Schistocyte) Rare [facility] CenterEmxqvebTZZTLAUTBM0552-20-52 13:52:00 Test Item Value Reference Range Interpretation Comments Macrocyte (test code = 1+ *ABN*(09/18/2011 A Macrocyte) 08:52:00) [facility] CenterWvjignhTNREWHRWLU8719-54-87 13:52:00 Test Item Value Reference Range Interpretation Comments Lymphocytes # (test code = Lymphocytes 0.6 1.0-5.5 L #) [facility] CenterLnrsjqpGDNDRVRLBO7287-24-57 13:52:00 Test Item Value Reference Range Interpretation Comments Segs-Bands # (test code = Segs-Bands #) 10.8 1.5-8.1 H [facility] CenterOatoxtsWTOIPNLWKN0368-83-68 13:52:00 Test Item Value Reference Range Interpretation Comments Basophils # (test code 0.0 See_Comment N [Aut omated message] The = Basophils #) system which generated this result tra nsmitted reference range : <=0.2. The reference r leo was not used to int erpret this result as normal/abnormal . [facility]FcphuasSNOHRNDNJO3945-71-63 13:52:00 Test Item Value Reference Range Interpretation Comments Anisocyte (test code = 1+ *ABN*(09/18/2011 A Anisocyte) 08:52:00) [facility] CenterJreacpcTJFWXFPZEQ1678-89-45 13:52:00 Test Item Value Reference Range Interpretation Comments CDC-HIV 1/2 Ab (test Negative *NA*(09/18/2011 code = CDC-HIV 1/2 08:52:00) Ab) [facility]IrlhyebINLVZAWEO6559-55-32 13:52:00 Test Item Value Reference Range Interpretation Comments pO2 Roberth (test code = pO2 Roberth) 24 20-49 N [facility] HospitalPbqrvguQPYOCQSXX1568-82-36 13:52:00 Test Item Value Reference Range Interpretation Comments HCO3 Roberth (test code = HCO3 Roberth) 32.0 22.0-26.0 H [facility] HospitalCtngjhzRKFDGNAJG4871-05-49 13:52:00 Test Item Value Reference Range Interpretation Comments pCO2 Roberth (test code = pCO2 Roberth) 44 38-52 N [facility] HospitalSabuodaGXEMORKOF4615-34-60 13:52:00 Test Item Value Reference Range Interpretation Comments BE Roberth (test code = 7 See_Comment H [Automa rohit message] The BE Roberth) system which ge nerated this result transmit rohit reference range : <=2. The reference range was not used to interpr et this result as reji l/abnormal. [facility] HospitalKichoedMEJJJQVAP5005-13-58 13:52:00 Test Item Value Reference Range Interpretation Comments O2 Sat Roberth (test code = O2 Sat Roberth) 48.0 40.0-70.0 N [facility] HospitalVwykpqpPJNLTIHET5219-70-02 13:52:00 Test Item Value Reference Range Interpretation Comments Temp Roberth (test code = Temp Roberth) 37.0 [facility] HospitalQcjztzfYUXPGHQBT2975-31-54 13:52:00 Test Item Value Reference Range Interpretation Comments pH Roberth (test code = pH Roberth) 7.47 7.28-7.42 H [facility] HospitalQpyepmmTOFZGIYEV9608-31-89 13:52:00 Test Item Value Reference Range Interpretation Comments Calcium Lvl (test code = Calcium Lvl) 10.1 8.5-10.5 N [facility] HospitalLnlbrbyQDZITUWQL2590-29-80 13:52:00 Test Item Value Reference Range Interpretation Comments Chloride Lvl (test code = Chloride Lvl) 92 95-109 L [facility] HospitalKzwwfeoWXPWYNKVY2533-72-93 13:52:00 Test Item Value Reference Range Interpretation Comments CO2 (test code = CO2) 30 24-32 [facility]MeoboefZUMRIKQDU9031-12-72 13:52:00 Test Item Value Reference Range Interpretation Comments Potassium Lvl (test code = Potassium 3.5 3.5-5.1 N Lvl) [facility]LbriihdDCAJXDBGZ5165-45-77 13:52:00 Test Item Value Reference Range Interpretation Comments Sodium Lvl (test code = Sodium Lvl) 133 135-145 L [facility] HospitalMxyxxwyCLOGQVKDL9517-30-87 13:52:00 Test Item Value Reference Range Interpretation Comments Creatinine Lvl (test code = Creatinine 1.3 0.5-1.4 N Lvl) [facility]EviqlnuICGIUMOIG4942-31-85 13:52:00 Test Item Value Reference Range Interpretation Comments Glucose Lvl (test code = Glucose Lvl) 383 70-99 H [facility] HospitalUdlnzirTELQFCAGI1664-82-72 13:52:00 Test Item Value Reference Range Interpretation Comments BUN (test code = BUN) 17 7-22 N [facility] HospitalEjktbbhHGTZJJGSK6797-87-57 13:52:00 Test Item Value Reference Range Interpretation Comments AGAP (test code = AGAP) 14.5 10.0-20.0 N [facility]YlqmxptFOWVFSGSPH7613-54-26 13:52:00 Test Item Value Reference Range Interpretation Comments MPV (test code = MPV) 12.0 7.4-10.4 H [facility] CenterPnajqjvFMQDZLQARV9517-22-29 13:52:00 Test Item Value Reference Range Interpretation Comments Platelet (test code = Platelet) 226 133-450 N [facility] CenterHmoveayZGXGXKJHTE0978-45-77 13:52:00 Test Item Value Reference Range Interpretation Comments MCHC (test code = MCHC) 33.7 32.0-36.0 N [facility] CenterWkctzrzVUBFKDMDQG1472-38-73 13:52:00 Test Item Value Reference Range Interpretation Comments MCH (test code = MCH) 28.5 pg 27.0-31.0 N [facility] CenterJvmladgBANCCCNHNO9598-95-22 13:52:00 Test Item Value Reference Range Interpretation Comments RDW (test code = RDW) 15.1 11.5-14.5 H [facility] CenterXezsmcfJXOOZGBARZ4721-60-74 13:52:00 Test Item Value Reference Range Interpretation Comments MCV (test code = MCV) 84.6 81.0-99.0 N [facility] CenterFavcmkpWMONVVJKFR2199-84-57 13:52:00 Test Item Value Reference Range Interpretation Comments Hct (test code = Hct) 36.4 36.0-48.0 N [facility] CenterNaupwsrINTHAPEFEG2309-38-55 13:52:00 Test Item Value Reference Range Interpretation Comments Hgb (test code = Hgb) 12.3 12.0-16.0 N [facility] CenterTaqemklCZGWYBNUPD4741-07-57 13:52:00 Test Item Value Reference Range Interpretation Comments RBC (test code = RBC) 4.30 4.20-5.40 N [facility] CenterStuhobtVLEUTRBXDL7195-96-22 13:52:00 Test Item Value Reference Range Interpretation Comments WBC (test code = WBC) 11.7 3.7-10.4 H [facility] CenterQqqmuzmWTLZCSEJIR0854-22-07 13:52:00 Test Item Value Reference Range Interpretation Comments Monocytes (test code = Monocytes) 2.9 2.0-12.0 N [facility] CenterLytiygjDXNIAZVXNN3794-51-72 13:52:00 Test Item Value Reference Range Interpretation Comments Eosinophils (test code = 0.2 See_Comment N [A utomated message] The Eosinophils) system which ge nerated this result tra nsmitted reference range : <=4.0. The reference r leo was not used to int erpret this result as normal/abnormal . [facility] CenterMafccagZAKBEDCMKK2842-64-04 13:52:00 Test Item Value Reference Range Interpretation Comments Basophils (test code = 0.0 See_Comment N [Aut omated message] The Basophils) system which ge nerated this result tra nsmitted reference range : <=1.0. The reference r leo was not used to int erpret this result as normal/abnormal . [facility] CenterKhgefhtHKOEHARLZH0847-38-55 13:52:00 Test Item Value Reference Range Interpretation Comments Eosinophils # (test code 0.0 See_Comment N [A utomated message] The = Eosinophils #) system whic h generated this result tra nsmitted reference range : <=0.5. The reference r leo was not used to int erpret this result as normal/abnormal . [facility] CenterKtrlnuwKFZOXZHFSG0296-93-57 13:52:00 Test Item Value Reference Range Interpretation Comments Monocytes # (test code 0.3 See_Comment N [Aut omated message] The = Monocytes #) system which generated this result tra nsmitted reference range : <=0.8. The reference r leo was not used to int erpret this result as normal/abnormal . [facility] CenterJghyqyxGLEBOSFPHU0660-50-78 13:52:00 Test Item Value Reference Range Interpretation Comments Segs (test code = Segs) 92.0 45.0-75.0 H [facility] CenterKxxzlixETMBODFHNU4561-80-63 13:52:00 Test Item Value Reference Range Interpretation Comments Lymphocytes (test code = Lymphocytes) 4.9 20.0-40.0 L [facility] CenterUdvemvqFMOPHIURXN1448-34-77 13:52:00 Test Item Value Reference Range Interpretation Comments Spherocyte (test code = Rare A Spherocyte) *ABN*(09/18/2011 08:52:00) [facility] CenterGywegkwWSOGIIKZOA5310-19-30 13:52:00 Test Item Value Reference Range Interpretation Comments Large Plt (test code = Slight *ABN*(09/18/2011 A Large Plt) 08:52:00) [facility] CenterTmshfxtRWAMKJCZLK1440-24-01 13:52:00 Test Item Value Reference Range Interpretation Comments Microcyte (test code = 1+ *ABN*(09/18/2011 A Microcyte) 08:52:00) [facility] CenterVepgevaNYXKWLKHCG0706-19-24 13:52:00 Test Item Value Reference Range Interpretation Comments Schistocyte (test code = Schistocyte) Rare [facility] CenterOngyhywXFGESGLLQL7399-78-16 13:52:00 Test Item Value Reference Range Interpretation Comments Macrocyte (test code = 1+ *ABN*(09/18/2011 A Macrocyte) 08:52:00) [facility] CenterKbkcrdgNSNEOXENFA4681-59-67 13:52:00 Test Item Value Reference Range Interpretation Comments Lymphocytes # (test code = Lymphocytes 0.6 1.0-5.5 L #) [facility] CenterKzrtxpwUWOBBOEITI3743-02-20 13:52:00 Test Item Value Reference Range Interpretation Comments Segs-Bands # (test code = Segs-Bands #) 10.8 1.5-8.1 [facility]MsyykbvCRWOXYRWUY4319-77-22 13:52:00 Test Item Value Reference Range Interpretation Comments Basophils # (test code 0.0 See_Comment N [Aut omated message] The = Basophils #) system which generated this result tra nsmitted reference range : <=0.2. The reference r leo was not used to int erpret this result as normal/abnormal . [facility]KxenmwhMLODTEWJEJ6038-71-44 13:52:00 Test Item Value Reference Range Interpretation Comments Anisocyte (test code = 1+ *ABN*(09/18/2011 A Anisocyte) 08:52:00) [facility] CenterUuhzspyCJWVRQQLIR1742-16-69 13:52:00 Test Item Value Reference Range Interpretation Comments CDC-HIV 1/2 Ab (test Negative *NA*(09/18/2011 code = CDC-HIV 1/2 08:52:00) Ab) [facility] GLUCOSE [id number] 17:34:00 Test Item Value Reference Range Interpretation Comments Gluc POC [facility] (test code = Gluc POC 215 70-99 H [facility]) [facility] GLUCOSE YWVUXDL7320-62-92 17:34:00 Test Item Value Reference Range Interpretation Comments Comment1 (test code = Comment1) Notify RN/ [facility] GLUCOSE [id number] 17:34:00 Test Item Value Reference Range Interpretation Comments Gluc POC Lifscn (test code = Gluc POC 215 70-99 H [facility]) [facility] GLUCOSE [id number] 17:34:00 Test Item Value Reference Range Interpretation Comments Comment1 (test code = Comment1) Notify RN/ [facility] GLUCOSE [id number] 17:34:00 Test Item Value Reference Range Interpretation Comments Gluc POC Lifscn (test code = Gluc POC 215 70-99 H [facility]) [facility] GLUCOSE [id number] 17:34:00 Test Item Value Reference Range Interpretation Comments Comment1 (test code = Comment1) Notify RN/ [facility] GLUCOSE [id number] 17:34:00 Test Item Value Reference Range Interpretation Comments Gluc POC Lifscn (test code = Gluc POC 215 70-99 H [facility]) [facility] GLUCOSE BDASGZD5857-57-39 17:34:00 Test Item Value Reference Range Interpretation Comments Comment1 (test code = Comment1) Notify RN/ [facility] GLUCOSE [id number] 17:34:00 Test Item Value Reference Range Interpretation Comments Gluc POC Lifscn (test code = Gluc POC 215 70-99 H [facility]) [facility] GLUCOSE [id number] 17:34:00 Test Item Value Reference Range Interpretation Comments Comment1 (test code = Comment1) Notify RN/ [facility] GLUCOSE SUWQEFZ6431-31-27 11:43:00 Test Item Value Reference Range Interpretation Comments Comment1 (test code = Comment1) Notify RN/ [facility] GLUCOSE [id number] 11:43:00 Test Item Value Reference Range Interpretation Comments Gluc POC Lifscn (test code = Gluc POC 91 65-110 N [facility]) [facility] GLUCOSE YCYJHMU5618-28-91 11:43:00 Test Item Value Reference Range Interpretation Comments Comment1 (test code = Comment1) Notify RN/ [facility] GLUCOSE [id number] 11:43:00 Test Item Value Reference Range Interpretation Comments Gluc POC Lifscn (test code = Gluc POC 91 65-110 N [facility]) [facility] GLUCOSE JDZNVVJ0171-94-31 11:43:00 Test Item Value Reference Range Interpretation Comments Comment1 (test code = Comment1) Notify RN/ [facility] GLUCOSE [id number] 11:43:00 Test Item Value Reference Range Interpretation Comments Gluc POC Lifscn (test code = Gluc POC 91 65-110 N [facility]) [facility] GLUCOSE [id number] 11:43:00 Test Item Value Reference Range Interpretation Comments Comment1 (test code = Comment1) Notify RN/ [facility] GLUCOSE [id number] 11:43:00 Test Item Value Reference Range Interpretation Comments Gluc POC Lifscn (test code = Gluc POC 91 65-110 N [facility]) [facility] GLUCOSE [id number] 11:43:00 Test Item Value Reference Range Interpretation Comments Comment1 (test code = Comment1) Notify RN/ [facility] GLUCOSE [id number] 11:43:00 Test Item Value Reference Range Interpretation Comments Gluc POC Lifscn (test code = Gluc POC 91 65-110 N [facility]) [facility] GLUCOSE IWYFBCX0694-12-37 02:45:00 Test Item Value Reference Range Interpretation Comments Comment1 (test code = Comment1) Notify RN/ [facility] GLUCOSE [id number] 02:45:00 Test Item Value Reference Range Interpretation Comments Gluc POC Lifscn (test code = Gluc POC 148 65-110 H [facility]) [facility] GLUCOSE [id number] 02:45:00 Test Item Value Reference Range Interpretation Comments Comment1 (test code = Comment1) Notify RN/ [facility] GLUCOSE [id number] 02:45:00 Test Item Value Reference Range Interpretation Comments Gluc POC Lifscn (test code = Gluc POC 148 65-110 H [facility]) [facility] GLUCOSE [id number] 02:45:00 Test Item Value Reference Range Interpretation Comments Comment1 (test code = Comment1) Notify RN/ [facility] GLUCOSE NEGVEUF8622-73-18 02:45:00 Test Item Value Reference Range Interpretation Comments Gluc POC Lif[facility]n (test code = Gluc POC 148 65-110 H [facility]) [facility] GLUCOSE [id number] 02:45:00 Test Item Value Reference Range Interpretation Comments Comment1 (test code = Comment1) Notify RN/ [facility] GLUCOSE [id number] 02:45:00 Test Item Value Reference Range Interpretation Comments Gluc POC Lifscn (test code = Gluc POC 148 65-110 H [facility]) [facility] GLUCOSE [id number] 02:45:00 Test Item Value Reference Range Interpretation Comments Comment1 (test code = Comment1) Notify RN/ [facility] GLUCOSE [id number] 02:45:00 Test Item Value Reference Range Interpretation Comments Gluc POC Lifscn (test code = Gluc POC 148 65-110 H [facility]) [facility]WyxwwpuTJASYPIIC6090-93-67 08:47:00 Test Item Value Reference Range Interpretation Comments Sodium Lvl (test code = Sodium Lvl) 143 135-145 N [facility] HospitalDfztuwsOXIIIBUBI2909-40-65 08:47:00 Test Item Value Reference Range Interpretation Comments Glucose Lvl (test code = Glucose Lvl) 105 [facility] HospitalFedkwbrUTAEASYIB9874-67-26 08:47:00 Test Item Value Reference Range Interpretation Comments CO2 (test code = CO2) 29 24-32 N [facility] HospitalZkjmfkvHJBLCKRTL5114-89-75 08:47:00 Test Item Value Reference Range Interpretation Comments Chloride Lvl (test code = Chloride Lvl) 103 95-109 N [facility] HospitalWlmferlTXBJKYXCU6883-21-42 08:47:00 Test Item Value Reference Range Interpretation Comments BUN (test code = BUN) 10 7-22 N [facility] HospitalFauktofEKMYIEIWA2666-82-78 08:47:00 Test Item Value Reference Range Interpretation Comments Potassium Lvl (test code = Potassium 3.8 3.5-5.1 N Lvl) [facility] HospitalHwdnpreDBATJGLFH6310-06-20 08:47:00 Test Item Value Reference Range Interpretation Comments Creatinine Lvl (test code = Creatinine 0.6 0.5-1.4 N Lvl) [facility] HospitalKzcvrjtNWIWSVNEC8546-11-16 08:47:00 Test Item Value Reference Range Interpretation Comments Calcium Lvl (test code = Calcium Lvl) 8.5 8.5-10.5 N [facility] HospitalJgpeyrlQMDVJDTXO0200-02-81 08:47:00 Test Item Value Reference Range Interpretation Comments AGAP (test code = AGAP) 14.8 10.0-20.0 N [facility]WgzcyqyZFGZHRULHX2399-18-06 08:47:00 Test Item Value Reference Range Interpretation Comments MCH (test code = MCH) 28.9 pg 27.0-31.0 N [facility] CenterYfxokacITTYMSAZZH3866-48-75 08:47:00 Test Item Value Reference Range Interpretation Comments MCV (test code = MCV) 82.1 81.0-99.0 N [facility] CenterKzlhzonULEOMSNMBX1581-78-05 08:47:00 Test Item Value Reference Range Interpretation Comments Hct (test code = Hct) 25.9 36.0-48.0 L [facility] CenterAlyxkqcOISZMJMGXN6948-98-47 08:47:00 Test Item Value Reference Range Interpretation Comments Platelet (test code = Platelet) 233 133-450 N [facility] CenterOnjhdpySMRYDHUKFO1892-15-89 08:47:00 Test Item Value Reference Range Interpretation Comments RDW (test code = RDW) 14.5 11.5-14.5 N [facility] CenterOivdkioRIZTSAWWAC3972-80-96 08:47:00 Test Item Value Reference Range Interpretation Comments MCHC (test code = MCHC) 35.2 32.0-36.0 N [facility] CenterAfgknowKIGLVVMPXQ6617-09-44 08:47:00 Test Item Value Reference Range Interpretation Comments Hgb (test code = Hgb) 9.1 12.0-16.0 L [facility] CenterWjfyxdeCIBHCGPTWN7417-80-01 08:47:00 Test Item Value Reference Range Interpretation Comments RBC (test code = RBC) 3.15 4.20-5.40 L [facility] CenterDphgpbbGTZXZGWVIX3165-13-64 08:47:00 Test Item Value Reference Range Interpretation Comments MPV (test code = MPV) 9.0 7.4-10.4 N [facility] CenterXsgrohuZYSHNLSRJL0442-61-67 08:47:00 Test Item Value Reference Range Interpretation Comments WBC (test code = WBC) 6.3 3.7-10.4 N [facility] CenterNzlmkcqGPCHXIZWEC3813-29-22 08:47:00 Test Item Value Reference Range Interpretation Comments Eosinophils # (test code 0.0 See_Comment N [A utomated message] The = Eosinophils #) system whic h generated this result tra nsmitted reference range : <=0.5. The reference r leo was not used to int erpret this result as normal/abnormal . [facility] CenterBiihdcgPZZYOWPXPC5261-31-13 08:47:00 Test Item Value Reference Range Interpretation Comments Basophils # (test code 0.0 See_Comment N [Aut omated message] The = Basophils #) system which generated this result tra nsmitted reference range : <=0.2. The reference r leo was not used to int erpret this result as normal/abnormal . [facility] CenterWtgkgumKSWACFNJLI5769-31-66 08:47:00 Test Item Value Reference Range Interpretation Comments Segs-Bands # (test code = Segs-Bands #) 3.8 1.5-8.1 N [facility] CenterBqpzxzjALGKORPDRL7525-17-07 08:47:00 Test Item Value Reference Range Interpretation Comments Lymphocytes # (test code = Lymphocytes 2.0 1.0-5.5 N #) [facility] CenterGdlkwekHAJROMKGHG6915-52-18 08:47:00 Test Item Value Reference Range Interpretation Comments Basophils (test code = 0.5 See_Comment N [Aut omated message] The Basophils) system which ge nerated this result tra nsmitted reference range : <=1.0. The reference r leo was not used to int erpret this result as normal/abnormal . [facility] CenterDeedxapMFZEWYROQD2413-54-28 08:47:00 Test Item Value Reference Range Interpretation Comments Eosinophils (test code = 0.7 See_Comment N [A utomated message] The Eosinophils) system which ge nerated this result tra nsmitted reference range : <=4.0. The reference r leo was not used to int erpret this result as normal/abnormal . [facility] CenterCiqxqgzXPNFOJUIKQ5432-64-39 08:47:00 Test Item Value Reference Range Interpretation Comments Monocytes (test code = Monocytes) 6.2 2.0-12.0 N [facility] CenterGlcitsrXMHAJOAUIU7337-08-67 08:47:00 Test Item Value Reference Range Interpretation Comments Segs (test code = Segs) 61.1 45.0-75.0 N [facility] CenterChgjwpvDZNLJHXPTN4751-22-06 08:47:00 Test Item Value Reference Range Interpretation Comments Lymphocytes (test code = Lymphocytes) 31.5 20.0-40.0 N [facility] CenterJggxosfZRZKUTBGPI9922-19-34 08:47:00 Test Item Value Reference Range Interpretation Comments Monocytes # (test code 0.4 See_Comment N [Aut omated message] The = Monocytes #) system which generated this result tra nsmitted reference range : <=0.8. The reference r leo was not used to int erpret this result as normal/abnormal . [facility] HospitalYslozdyDRNKSETEZ3748-18-10 08:47:00 Test Item Value Reference Range Interpretation Comments Sodium Lvl (test code = Sodium Lvl) 143 135-145 N [facility] HospitalPpuebftHCYTSRSXR9066-19-43 08:47:00 Test Item Value Reference Range Interpretation Comments Glucose Lvl (test code = Glucose Lvl) 105 [facility] HospitalYfejefgDXTHNXTVR4970-77-26 08:47:00 Test Item Value Reference Range Interpretation Comments CO2 (test code = CO2) 29 24-32 N [facility] HospitalFzdfpwxPYTOMCXZK5021-73-86 08:47:00 Test Item Value Reference Range Interpretation Comments Chloride Lvl (test code = Chloride Lvl) 103 95-109 N [facility] HospitalKbcxhebICDINEQXL4664-32-87 08:47:00 Test Item Value Reference Range Interpretation Comments BUN (test code = BUN) 10 7-22 N [facility] HospitalLxvachoVKCSEQSYO2617-48-10 08:47:00 Test Item Value Reference Range Interpretation Comments Potassium Lvl (test code = Potassium 3.8 3.5-5.1 N Lvl) [facility] HospitalGmgknbmTAZNNFUGE8093-51-01 08:47:00 Test Item Value Reference Range Interpretation Comments Creatinine Lvl (test code = Creatinine 0.6 0.5-1.4 N Lvl) [facility] HospitalGtlgylxBHYLYQCPW8350-50-94 08:47:00 Test Item Value Reference Range Interpretation Comments Calcium Lvl (test code = Calcium Lvl) 8.5 8.5-10.5 N [facility] HospitalWbehzbsDSUHEFSON9902-82-61 08:47:00 Test Item Value Reference Range Interpretation Comments AGAP (test code = AGAP) 14.8 10.0-20.0 N [facility] CenterIcdlvteUXREUJPNMW6253-76-42 08:47:00 Test Item Value Reference Range Interpretation Comments MCH (test code = MCH) 28.9 pg 27.0-31.0 N [facility] CenterInbgxgsTSNFFTXTII6765-44-91 08:47:00 Test Item Value Reference Range Interpretation Comments MCV (test code = MCV) 82.1 81.0-99.0 N [facility] CenterDqsgeciQYUOGEBUWA9572-90-99 08:47:00 Test Item Value Reference Range Interpretation Comments Hct (test code = Hct) 25.9 36.0-48.0 L [facility] CenterNpnsrljAKBQWLKMDR0301-28-59 08:47:00 Test Item Value Reference Range Interpretation Comments Platelet (test code = Platelet) 233 133-450 N [facility] CenterHvghzmnUDNNMRZYBA6954-53-83 08:47:00 Test Item Value Reference Range Interpretation Comments RDW (test code = RDW) 14.5 11.5-14.5 N [facility] CenterHuwinmeABBCCFQHGU6747-33-64 08:47:00 Test Item Value Reference Range Interpretation Comments MCHC (test code = MCHC) 35.2 32.0-36.0 N [facility] CenterXsvsgemBJVJPRZERP4137-51-35 08:47:00 Test Item Value Reference Range Interpretation Comments Hgb (test code = Hgb) 9.1 12.0-16.0 L [facility] CenterYvvffvpBLBYEWNDVG2939-98-11 08:47:00 Test Item Value Reference Range Interpretation Comments RBC (test code = RBC) 3.15 4.20-5.40 L [facility] CenterGfkuxhfSASNYNHNBS6813-49-51 08:47:00 Test Item Value Reference Range Interpretation Comments MPV (test code = MPV) 9.0 7.4-10.4 N [facility] CenterFhcfaxxRFTEZGYSDB7520-88-33 08:47:00 Test Item Value Reference Range Interpretation Comments WBC (test code = WBC) 6.3 3.7-10.4 N [facility] CenterCzmzpqqZUXXNQHCWX8105-35-49 08:47:00 Test Item Value Reference Range Interpretation Comments Eosinophils # (test code 0.0 See_Comment N [A utomated message] The = Eosinophils #) system whic h generated this result tra nsmitted reference range : <=0.5. The reference r leo was not used to int erpret this result as normal/abnormal . [facility] CenterThseivbSMHLLONSFZ9190-99-40 08:47:00 Test Item Value Reference Range Interpretation Comments Basophils # (test code 0.0 See_Comment N [Aut omated message] The = Basophils #) system which generated this result tra nsmitted reference range : <=0.2. The reference r leo was not used to int erpret this result as normal/abnormal . [facility] CenterQvsveofFPJLVDBRZY0148-15-37 08:47:00 Test Item Value Reference Range Interpretation Comments Segs-Bands # (test code = Segs-Bands #) 3.8 1.5-8.1 N [facility] CenterBsmplloLJJQVKJKAD2634-25-30 08:47:00 Test Item Value Reference Range Interpretation Comments Lymphocytes # (test code = Lymphocytes 2.0 1.0-5.5 N #) [facility] CenterJmafgnhCJFYEPJSWD9268-78-64 08:47:00 Test Item Value Reference Range Interpretation Comments Basophils (test code = 0.5 See_Comment N [Aut omated message] The Basophils) system which ge nerated this result tra nsmitted reference range : <=1.0. The reference r leo was not used to int erpret this result as normal/abnormal . [facility] CenterOgjkhayYWJSJAAMDI5580-70-73 08:47:00 Test Item Value Reference Range Interpretation Comments Eosinophils (test code = 0.7 See_Comment N [A utomated message] The Eosinophils) system which ge nerated this result tra nsmitted reference range : <=4.0. The reference r leo was not used to int erpret this result as normal/abnormal . [facility] CenterTxfzlrmVNXVWBPNRX0004-60-54 08:47:00 Test Item Value Reference Range Interpretation Comments Monocytes (test code = Monocytes) 6.2 2.0-12.0 N [facility] CenterNtxlknzSFGFRXJZTN5280-68-00 08:47:00 Test Item Value Reference Range Interpretation Comments Segs (test code = Segs) 61.1 45.0-75.0 N [facility] CenterZetpcrxURMEIUTFWH6300-79-88 08:47:00 Test Item Value Reference Range Interpretation Comments Lymphocytes (test code = Lymphocytes) 31.5 20.0-40.0 N [facility] CenterCbojnroPBKMXHHMYA5626-10-50 08:47:00 Test Item Value Reference Range Interpretation Comments Monocytes # (test code 0.4 See_Comment N [Aut omated message] The = Monocytes #) system which generated this result tra nsmitted reference range : <=0.8. The reference r leo was not used to int erpret this result as normal/abnormal . [facility] HospitalKhgxmnrUSEBYTWNH0198-18-09 08:47:00 Test Item Value Reference Range Interpretation Comments Sodium Lvl (test code = Sodium Lvl) 143 135-145 N [facility] HospitalSmuoxqwVQKPIBILY2608-16-80 08:47:00 Test Item Value Reference Range Interpretation Comments Glucose Lvl (test code = Glucose Lvl) 105 [facility] HospitalNhzjtgiDXIHJAHYH0574-51-10 08:47:00 Test Item Value Reference Range Interpretation Comments CO2 (test code = CO2) 29 24-32 N [facility] HospitalYqpgpssRSGYEBQOL2488-09-44 08:47:00 Test Item Value Reference Range Interpretation Comments Chloride Lvl (test code = Chloride Lvl) 103 95-109 N [facility] HospitalKouvcwdXZEVLBXYK4449-47-37 08:47:00 Test Item Value Reference Range Interpretation Comments BUN (test code = BUN) 10 7-22 N [facility] HospitalLjlpmpdPVURIWAJJ0227-60-79 08:47:00 Test Item Value Reference Range Interpretation Comments Potassium Lvl (test code = Potassium 3.8 3.5-5.1 N Lvl) [facility]ap[facility]JVXOZDTP2349-15-82 08:47:00 Test Item Value Reference Range Interpretation Comments Creatinine Lvl (test code = Creatinine 0.6 0.5-1.4 N Lvl) [facility]FovsvnbPEARKCXSX2527-48-92 08:47:00 Test Item Value Reference Range Interpretation Comments Calcium Lvl (test code = Calcium Lvl) 8.5 8.5-10.5 N [facility] HospitalJbximtpOFVPOTXYO3558-58-74 08:47:00 Test Item Value Reference Range Interpretation Comments AGAP (test code = AGAP) 14.8 10.0-20.0 N [facility]FhwvciqZOCIYZPIIH2974-49-39 08:47:00 Test Item Value Reference Range Interpretation Comments MCH (test code = MCH) 28.9 pg 27.0-31.0 N [facility] CenterOzqbwniHECXSDRXQS5466-24-36 08:47:00 Test Item Value Reference Range Interpretation Comments MCV (test code = MCV) 82.1 81.0-99.0 N [facility] CenterAmnsljoOFDBRGZLFE5773-83-93 08:47:00 Test Item Value Reference Range Interpretation Comments Hct (test code = Hct) 25.9 36.0-48.0 L [facility] CenterNkuseqvBCZWJHYRAD1740-27-51 08:47:00 Test Item Value Reference Range Interpretation Comments Platelet (test code = Platelet) 233 133-450 N [facility] CenterNxzdfrdATJHOANTSI4934-64-13 08:47:00 Test Item Value Reference Range Interpretation Comments RDW (test code = RDW) 14.5 11.5-14.5 N [facility] CenterFdjlkldCJYDSTOGJZ3138-78-86 08:47:00 Test Item Value Reference Range Interpretation Comments MCHC (test code = MCHC) 35.2 32.0-36.0 N [facility] CenterMjecdggHEJSQUHXKK5967-41-31 08:47:00 Test Item Value Reference Range Interpretation Comments Hgb (test code = Hgb) 9.1 12.0-16.0 L [facility] CenterRcwvkgnUQEQCPGRAT6213-31-77 08:47:00 Test Item Value Reference Range Interpretation Comments RBC (test code = RBC) 3.15 4.20-5.40 L [facility] CenterRxhdjwiGDXAZDWDFF7384-50-14 08:47:00 Test Item Value Reference Range Interpretation Comments MPV (test code = MPV) 9.0 7.4-10.4 N [facility] CenterNbxwzwnYTOTDBRSSW6390-00-35 08:47:00 Test Item Value Reference Range Interpretation Comments WBC (test code = WBC) 6.3 3.7-10.4 N [facility] CenterBsqsevjLKMVVWBYTI5058-05-53 08:47:00 Test Item Value Reference Range Interpretation Comments Eosinophils # (test code 0.0 See_Comment N [A utomated message] The = Eosinophils #) system whic h generated this result tra nsmitted reference range : <=0.5. The reference r leo was not used to int erpret this result as normal/abnormal . [facility] CenterRuygxnzUZMSHPFFHX1010-42-02 08:47:00 Test Item Value Reference Range Interpretation Comments Basophils # (test code 0.0 See_Comment N [Aut omated message] The = Basophils #) system which generated this result tra nsmitted reference range : <=0.2. The reference r leo was not used to int erpret this result as normal/abnormal . [facility] CenterIrosretECQNNDFNZY4365-64-53 08:47:00 Test Item Value Reference Range Interpretation Comments Segs-Bands # (test code = Segs-Bands #) 3.8 1.5-8.1 N [facility] CenterVnpkvhtAPNCSIXTIG0697-89-30 08:47:00 Test Item Value Reference Range Interpretation Comments Lymphocytes # (test code = Lymphocytes 2.0 1.0-5.5 N #) [facility] CenterBmneuqsNGIHMYULPF6121-45-34 08:47:00 Test Item Value Reference Range Interpretation Comments Basophils (test code = 0.5 See_Comment N [Aut omated message] The Basophils) system which ge nerated this result tra nsmitted reference range : <=1.0. The reference r leo was not used to int erpret this result as normal/abnormal . [facility] CenterSnpejusLRMLPEUYGY1075-09-58 08:47:00 Test Item Value Reference Range Interpretation Comments Eosinophils (test code = 0.7 See_Comment N [A utomated message] The Eosinophils) system which ge nerated this result tra nsmitted reference range : <=4.0. The reference r leo was not used to int erpret this result as normal/abnormal . [facility] CenterHgenejmVJTGTHZZMB6567-72-76 08:47:00 Test Item Value Reference Range Interpretation Comments Monocytes (test code = Monocytes) 6.2 2.0-12.0 N [facility] CenterNpvnqtuKKTSMOAMKB6415-39-40 08:47:00 Test Item Value Reference Range Interpretation Comments Segs (test code = Segs) 61.1 45.0-75.0 N [facility] CenterDygqzhnZGRLVPVDMS7334-33-11 08:47:00 Test Item Value Reference Range Interpretation Comments Lymphocytes (test code = Lymphocytes) 31.5 20.0-40.0 N [facility] CenterLovldxqHXXJXBQVIP1543-54-49 08:47:00 Test Item Value Reference Range Interpretation Comments Monocytes # (test code 0.4 See_Comment N [Aut omated message] The = Monocytes #) system which generated this result tra nsmitted reference range : <=0.8. The reference r leo was not used to int erpret this result as normal/abnormal . [facility] HospitalQftwjwsSXKJTPYIV4388-85-65 08:47:00 Test Item Value Reference Range Interpretation Comments Sodium Lvl (test code = Sodium Lvl) 143 135-145 N [facility] HospitalOnnitluCHOXEUBIH1246-55-26 08:47:00 Test Item Value Reference Range Interpretation Comments Glucose Lvl (test code = Glucose Lvl) 105 [facility] HospitalTfbcnjsVDMAFZSSN0777-43-58 08:47:00 Test Item Value Reference Range Interpretation Comments CO2 (test code = CO2) 29 24-32 N [facility] HospitalFqhrgylPPCIUCWOK4615-70-78 08:47:00 Test Item Value Reference Range Interpretation Comments Chloride Lvl (test code = Chloride Lvl) 103 95-109 N [facility] HospitalDyjxlvxNNIWTXIPT5301-35-65 08:47:00 Test Item Value Reference Range Interpretation Comments BUN (test code = BUN) 10 7-22 N [facility] HospitalThpdbyhODZSLTALA8046-49-44 08:47:00 Test Item Value Reference Range Interpretation Comments Potassium Lvl (test code = Potassium 3.8 3.5-5.1 N Lvl) [facility] HospitalJacdugzMHCIXLBSX7724-25-76 08:47:00 Test Item Value Reference Range Interpretation Comments Creatinine Lvl (test code = Creatinine 0.6 0.5-1.4 N Lvl) [facility] HospitalPpmwevmCYPJQLWGU8449-57-64 08:47:00 Test Item Value Reference Range Interpretation Comments Calcium Lvl (test code = Calcium Lvl) 8.5 8.5-10.5 N [facility]ClvbbwrWNVWEKZHR8976-01-81 08:47:00 Test Item Value Reference Range Interpretation Comments AGAP (test code = AGAP) 14.8 10.0-20.0 N [facility]WhaauxyIOMRKZZVJC0850-57-15 08:47:00 Test Item Value Reference Range Interpretation Comments MCH (test code = MCH) 28.9 pg 27.0-31.0 N [facility] CenterNfhknvcUHXQAFKJIE1175-11-57 08:47:00 Test Item Value Reference Range Interpretation Comments MCV (test code = MCV) 82.1 81.0-99.0 N [facility] CenterNlwaoypUFSOBLGBPZ5062-33-89 08:47:00 Test Item Value Reference Range Interpretation Comments Hct (test code = Hct) 25.9 36.0-48.0 L [facility] CenterQfwhiamUTLFYXXBAK7063-21-70 08:47:00 Test Item Value Reference Range Interpretation Comments Platelet (test code = Platelet) 233 133-450 N [facility] CenterIecsyhnVRALCBHUQI7744-44-70 08:47:00 Test Item Value Reference Range Interpretation Comments RDW (test code = RDW) 14.5 11.5-14.5 N [facility] CenterAardbhfTMKWRBMFIF6205-33-44 08:47:00 Test Item Value Reference Range Interpretation Comments MCHC (test code = MCHC) 35.2 32.0-36.0 N [facility] CenterQuwvppdPPKGWUMJAP2597-73-29 08:47:00 Test Item Value Reference Range Interpretation Comments Hgb (test code = Hgb) 9.1 12.0-16.0 L [facility] CenterPtksdtnIMKTHNWQUK4606-75-57 08:47:00 Test Item Value Reference Range Interpretation Comments RBC (test code = RBC) 3.15 4.20-5.40 L [facility] CenterUbyjkzxMCMQQOOOIR9301-18-42 08:47:00 Test Item Value Reference Range Interpretation Comments MPV (test code = MPV) 9.0 7.4-10.4 N [facility] CenterAmhbmevTBCWUXHZOG6789-16-83 08:47:00 Test Item Value Reference Range Interpretation Comments WBC (test code = WBC) 6.3 3.7-10.4 N [facility] CenterLomvwwuQFWKHWLSXX2208-49-53 08:47:00 Test Item Value Reference Range Interpretation Comments Eosinophils # (test code 0.0 See_Comment N [A utomated message] The = Eosinophils #) system whic h generated this result tra nsmitted reference range : <=0.5. The reference r leo was not used to int erpret this result as normal/abnormal . [facility] CenterQrrwhghGJCMWSBVPU8975-60-33 08:47:00 Test Item Value Reference Range Interpretation Comments Basophils # (test code 0.0 See_Comment N [Aut omated message] The = Basophils #) system which generated this result tra nsmitted reference range : <=0.2. The reference r leo was not used to int erpret this result as normal/abnormal . [facility] CenterXorckxaHMTLDORXSI5706-52-85 08:47:00 Test Item Value Reference Range Interpretation Comments Segs-Bands # (test code = Segs-Bands #) 3.8 1.5-8.1 N [facility] CenterRodjlmyHPLRLATZZD4058-18-54 08:47:00 Test Item Value Reference Range Interpretation Comments Lymphocytes # (test code = Lymphocytes 2.0 1.0-5.5 N #) [facility] CenterMzotaqwFUVNQKSBWV9047-96-57 08:47:00 Test Item Value Reference Range Interpretation Comments Basophils (test code = 0.5 See_Comment N [Aut omated message] The Basophils) system which ge nerated this result tra nsmitted reference range : <=1.0. The reference r leo was not used to int erpret this result as normal/abnormal . [facility] CenterRxxzjuaSMDFPZEDUH0008-86-98 08:47:00 Test Item Value Reference Range Interpretation Comments Eosinophils (test code = 0.7 See_Comment N [A utomated message] The Eosinophils) system which ge nerated this result tra nsmitted reference range : <=4.0. The reference r leo was not used to int erpret this result as normal/abnormal . [facility] CenterAcdxuwjQLCJTYHGZA5594-80-70 08:47:00 Test Item Value Reference Range Interpretation Comments Monocytes (test code = Monocytes) 6.2 2.0-12.0 N [facility] CenterRqhpzbrJDPQFNNAQD6371-83-22 08:47:00 Test Item Value Reference Range Interpretation Comments Segs (test code = Segs) 61.1 45.0-75.0 N [facility] CenterScuegiwXBTAPTONEO8516-95-41 08:47:00 Test Item Value Reference Range Interpretation Comments Lymphocytes (test code = Lymphocytes) 31.5 20.0-40.0 N [facility] CenterHmfaivcVYFVDOHFNL4261-67-37 08:47:00 Test Item Value Reference Range Interpretation Comments Monocytes # (test code 0.4 See_Comment N [Aut omated message] The = Monocytes #) system which generated this result tra nsmitted reference range : <=0.8. The reference r leo was not used to int erpret this result as normal/abnormal . [facility] HospitalUyvzkeeTBZGYBFAS0103-16-18 08:47:00 Test Item Value Reference Range Interpretation Comments Sodium Lvl (test code = Sodium Lvl) 143 135-145 N [facility] HospitalJzoonpoFJXVNDJVC3128-15-79 08:47:00 Test Item Value Reference Range Interpretation Comments Glucose Lvl (test code = Glucose Lvl) 105 [facility] HospitalUnywqufSKMLNKSLF4686-89-77 08:47:00 Test Item Value Reference Range Interpretation Comments CO2 (test code = CO2) 29 24-32 N [facility] HospitalBnkbiwhUMYOFKOBJ2360-07-13 08:47:00 Test Item Value Reference Range Interpretation Comments Chloride Lvl (test code = Chloride Lvl) 103 95-109 N [facility] HospitalNiwzknbEWZVGNMGJ3943-24-42 08:47:00 Test Item Value Reference Range Interpretation Comments BUN (test code = BUN) 10 7-22 N [facility] HospitalGbfyxujTWAIBFZTD5221-38-75 08:47:00 Test Item Value Reference Range Interpretation Comments Potassium Lvl (test code = Potassium 3.8 3.5-5.1 N Lvl) [facility] HospitalQnwslwgCHSSTAYLI0184-29-55 08:47:00 Test Item Value Reference Range Interpretation Comments Creatinine Lvl (test code = Creatinine 0.6 0.5-1.4 N Lvl) [facility] HospitalEcddgosFSZRYAVPX1421-36-61 08:47:00 Test Item Value Reference Range Interpretation Comments Calcium Lvl (test code = Calcium Lvl) 8.5 8.5-10.5 N [facility] HospitalExdyrbiXYYHOWAMY6450-62-66 08:47:00 Test Item Value Reference Range Interpretation Comments AGAP (test code = AGAP) 14.8 10.0-20.0 N [facility] CenterBesavtlKNXOIJRBVU2232-07-51 08:47:00 Test Item Value Reference Range Interpretation Comments MCH (test code = MCH) 28.9 pg 27.0-31.0 N [facility] CenterRpovowpMYHWBPDVVQ9890-25-58 08:47:00 Test Item Value Reference Range Interpretation Comments MCV (test code = MCV) 82.1 81.0-99.0 N [facility] CenterGuqjxbmZWASUWRYZJ9055-86-07 08:47:00 Test Item Value Reference Range Interpretation Comments Hct (test code = Hct) 25.9 36.0-48.0 L [facility] CenterGovfuhhHHBGSUTQAL0651-12-67 08:47:00 Test Item Value Reference Range Interpretation Comments Platelet (test code = Platelet) 233 133-450 N [facility] CenterEluakyjYZGNTMZWON5414-96-79 08:47:00 Test Item Value Reference Range Interpretation Comments RDW (test code = RDW) 14.5 11.5-14.5 N [facility] CenterRfnvjzzKPKJMLQKHR4986-54-03 08:47:00 Test Item Value Reference Range Interpretation Comments MCHC (test code = MCHC) 35.2 32.0-36.0 N [facility] CenterBwdnyjmQFKPNAFXPJ3013-69-70 08:47:00 Test Item Value Reference Range Interpretation Comments Hgb (test code = Hgb) 9.1 12.0-16.0 L [facility] CenterNlmupaoRRVFCTHAAX3831-33-94 08:47:00 Test Item Value Reference Range Interpretation Comments RBC (test code = RBC) 3.15 4.20-5.40 L [facility] CenterBmfsxmqFUHCQQWRKC7542-90-52 08:47:00 Test Item Value Reference Range Interpretation Comments MPV (test code = MPV) 9.0 7.4-10.4 N [facility] CenterVvwwafyYWWQQZSHMI9088-32-91 08:47:00 Test Item Value Reference Range Interpretation Comments WBC (test code = WBC) 6.3 3.7-10.4 N [facility] CenterEbksrkjNHZSJZZUEM7175-07-10 08:47:00 Test Item Value Reference Range Interpretation Comments Eosinophils # (test code 0.0 See_Comment N [A utomated message] The = Eosinophils #) system whic h generated this result tra nsmitted reference range : <=0.5. The reference r leo was not used to int erpret this result as normal/abnormal . [facility] CenterUbrulmrTCTUOXEKKW0189-62-80 08:47:00 Test Item Value Reference Range Interpretation Comments Basophils # (test code 0.0 See_Comment N [Aut omated message] The = Basophils #) system which generated this result tra nsmitted reference range : <=0.2. The reference r leo was not used to int erpret this result as normal/abnormal . [facility] CenterCohcpuaFOVCXORKPK4985-59-25 08:47:00 Test Item Value Reference Range Interpretation Comments Segs-Bands # (test code = Segs-Bands #) 3.8 1.5-8.1 N [facility] CenterXfyyuezWUSTJWITES4029-28-91 08:47:00 Test Item Value Reference Range Interpretation Comments Lymphocytes # (test code = Lymphocytes 2.0 1.0-5.5 N #) [facility] CenterZiflnyyIHHHHALNDY2751-40-07 08:47:00 Test Item Value Reference Range Interpretation Comments Basophils (test code = 0.5 See_Comment N [Aut omated message] The Basophils) system which ge nerated this result tra nsmitted reference range : <=1.0. The reference r leo was not used to int erpret this result as normal/abnormal . [facility] CenterMycelucUNNSIQZEMY0745-52-38 08:47:00 Test Item Value Reference Range Interpretation Comments Eosinophils (test code = 0.7 See_Comment N [A utomated message] The Eosinophils) system which ge nerated this result tra nsmitted reference range : <=4.0. The reference r leo was not used to int erpret this result as normal/abnormal . [facility] CenterCbjppkdYPQJAEQGCM8944-70-26 08:47:00 Test Item Value Reference Range Interpretation Comments Monocytes (test code = Monocytes) 6.2 2.0-12.0 N [facility] CenterLkntkndWIBAYXWSQF9261-28-77 08:47:00 Test Item Value Reference Range Interpretation Comments Segs (test code = Segs) 61.1 45.0-75.0 N [facility] CenterZpsprnfVAYCHVWLSL5218-30-19 08:47:00 Test Item Value Reference Range Interpretation Comments Lymphocytes (test code = Lymphocytes) 31.5 20.0-40.0 N [facility] CenterOqxwqxsOFOSUEQXYV9502-05-21 08:47:00 Test Item Value Reference Range Interpretation Comments Monocytes # (test code 0.4 See_Comment N [Aut omated message] The = Monocytes #) system which generated this result tra nsmitted reference range : <=0.8. The reference r leo was not used to int erpret this result as normal/abnormal . [facility] HospitalDlijwmtSYDLYDZKL5070-64-31 10:54:00 Test Item Value Reference Range Interpretation Comments CO2 (test code = CO2) 27 24-32 N [facility] HospitalSkxcoswBUDTBNHKL8292-64-89 10:54:00 Test Item Value Reference Range Interpretation Comments Chloride Lvl (test code = Chloride Lvl) 104 95-109 N [facility] HospitalHscmibdTNTFAZQMO9633-13-97 10:54:00 Test Item Value Reference Range Interpretation Comments Creatinine Lvl (test code = Creatinine 0.5 0.5-1.4 N Lvl) [facility] HospitalMwkvulkACDMEIDMV2644-16-48 10:54:00 Test Item Value Reference Range Interpretation Comments BUN (test code = BUN) 10 7-22 N [facility] HospitalGdmjbkwHIAMOPZPF0421-89-18 10:54:00 Test Item Value Reference Range Interpretation Comments Potassium Lvl (test code = Potassium 4.1 3.5-5.1 N Lvl) [facility] HospitalYlaeermIBIKQAUHL9961-48-00 10:54:00 Test Item Value Reference Range Interpretation Comments Sodium Lvl (test code = Sodium Lvl) 141 135-145 N [facility] HospitalEdnhymxLLCWLBIZJ8851-57-98 10:54:00 Test Item Value Reference Range Interpretation Comments Glucose Lvl (test code = Glucose Lvl) 83 [facility] HospitalTeadijyECOTXTOXI5714-93-38 10:54:00 Test Item Value Reference Range Interpretation Comments Calcium Lvl (test code = Calcium Lvl) 8.4 8.5-10.5 L [facility] HospitalWpwbwmeMSJRBAHUW7945-01-73 10:54:00 Test Item Value Reference Range Interpretation Comments AGAP (test code = AGAP) 14.1 10.0-20.0 N [facility] CenterHztpwnpLHREBTAOKN8661-39-73 10:54:00 Test Item Value Reference Range Interpretation Comments Hct (test code = Hct) 35.5 36.0-48.0 L [facility] CenterHvnfchoBDLESSFFOX9543-61-26 10:54:00 Test Item Value Reference Range Interpretation Comments WBC (test code = WBC) 4.7 3.7-10.4 N [facility] CenterZeseluxSIAHZTZLHT6472-83-97 10:54:00 Test Item Value Reference Range Interpretation Comments MCV (test code = MCV) 92.6 81.0-99.0 N [facility] CenterFrvlvntFPJUJTURLZ8528-50-49 10:54:00 Test Item Value Reference Range Interpretation Comments MCH (test code = MCH) 31.4 pg 27.0-31.0 H [facility] CenterMzxvvlyQFGYZUYDSD9846-79-31 10:54:00 Test Item Value Reference Range Interpretation Comments RBC (test code = RBC) 3.84 4.20-5.40 L [facility] CenterDxztsmxTIUJVIYGEE7058-73-32 10:54:00 Test Item Value Reference Range Interpretation Comments Hgb (test code = Hgb) 12.1 12.0-16.0 N [facility] CenterCpwpaaySDCGTLGCTQ5199-34-52 10:54:00 Test Item Value Reference Range Interpretation Comments Platelet (test code = Platelet) 287 133-450 N [facility] CenterRxnouimXLKQGPHSHS5896-68-58 10:54:00 Test Item Value Reference Range Interpretation Comments RDW (test code = RDW) 12.7 11.5-14.5 N [facility] CenterSugxaiuKUCQRJJHBL5349-20-99 10:54:00 Test Item Value Reference Range Interpretation Comments MCHC (test code = MCHC) 33.9 32.0-36.0 N [facility] CenterOkwgrveGPIQRTXSXC9887-03-55 10:54:00 Test Item Value Reference Range Interpretation Comments MPV (test code = MPV) 7.2 7.4-10.4 L [facility] CenterLhxhpoaINCRBHPBLT4082-49-99 10:54:00 Test Item Value Reference Range Interpretation Comments INR (test code = INR) 0.95 0.85-1.17 N [facility] CenterFtpxfulSFFXXTTILX5830-99-70 10:54:00 Test Item Value Reference Range Interpretation Comments PT (test code = PT) 12.7 s 12.0-14.7 N [facility] CenterPckwccnHYAQSEROVN1682-03-11 10:54:00 Test Item Value Reference Range Interpretation Comments PTT (test code = PTT) 28.5 s 22.9-35.8 N [facility] CenterMghbjmrBTTKQAPWUZ4182-42-81 10:54:00 Test Item Value Reference Range Interpretation Comments Eosinophils # (test code 0.1 See_Comment N [A utomated message] The = Eosinophils #) system whic h generated this result tra nsmitted reference range : <=0.5. The reference r leo was not used to int erpret this result as normal/abnormal . [facility] CenterVntprdcTWPWHLVBLH1102-99-75 10:54:00 Test Item Value Reference Range Interpretation Comments Basophils # (test code 0.0 See_Comment N [Aut omated message] The = Basophils #) system which generated this result tra nsmitted reference range : <=0.2. The reference r leo was not used to int erpret this result as normal/abnormal . [facility] CenterCryfznhCOPOFSKWAC8257-30-23 10:54:00 Test Item Value Reference Range Interpretation Comments Basophils (test code = 0.4 See_Comment N [Aut omated message] The Basophils) system which ge nerated this result tra nsmitted reference range : <=1.0. The reference r leo was not used to int erpret this result as normal/abnormal . [facility] CenterDucetfcJTUVGDCKWT8054-21-00 10:54:00 Test Item Value Reference Range Interpretation Comments Segs-Bands # (test code = Segs-Bands #) 2.1 1.5-8.1 N [facility] CenterBdgmkqpVCTECUFULA2141-35-78 10:54:00 Test Item Value Reference Range Interpretation Comments Monocytes (test code = Monocytes) 9.0 2.0-12.0 N [facility] CenterBfgrkzeNVLFFNQZLH9411-04-86 10:54:00 Test Item Value Reference Range Interpretation Comments Eosinophils (test code = 2.4 See_Comment N [A utomated message] The Eosinophils) system which ge nerated this result tra nsmitted reference range : <=4.0. The reference r leo was not used to int erpret this result as normal/abnormal . [facility] CenterEyvbanqNVMCESEEPS1683-18-56 10:54:00 Test Item Value Reference Range Interpretation Comments Monocytes # (test code 0.4 See_Comment N [Aut omated message] The = Monocytes #) system which generated this result tra nsmitted reference range : <=0.8. The reference r leo was not used to int erpret this result as normal/abnormal . [facility] CenterMbegofcBNQSXGDDST4659-09-91 10:54:00 Test Item Value Reference Range Interpretation Comments Lymphocytes # (test code = Lymphocytes 2.0 1.0-5.5 N #) [facility] CenterUplqtaiXKSMQUANPF3517-12-16 10:54:00 Test Item Value Reference Range Interpretation Comments Lymphocytes (test code = Lymphocytes) 42.8 20.0-40.0 H [facility] CenterLysbetsNBSUYPRXGF4715-82-23 10:54:00 Test Item Value Reference Range Interpretation Comments Segs (test code = Segs) 45.4 45.0-75.0 N [facility] HospitalBarcdnqIBBYUVSNW6480-17-17 10:54:00 Test Item Value Reference Range Interpretation Comments CO2 (test code = CO2) 27 24-32 N [facility] HospitalIxwgnucYJGNDRPSL3627-18-17 10:54:00 Test Item Value Reference Range Interpretation Comments Chloride Lvl (test code = Chloride Lvl) 104 95-109 N [facility] HospitalFglioibXJSLOZKDC9626-36-66 10:54:00 Test Item Value Reference Range Interpretation Comments Creatinine Lvl (test code = Creatinine 0.5 0.5-1.4 N Lvl) [facility] HospitalWkkyjcnQBXIBTIMN3360-41-71 10:54:00 Test Item Value Reference Range Interpretation Comments BUN (test code = BUN) 10 7-22 N [facility] HospitalJlchlgbVDLPMCWVR7153-25-73 10:54:00 Test Item Value Reference Range Interpretation Comments Potassium Lvl (test code = Potassium 4.1 3.5-5.1 N Lvl) [facility] HospitalIolkxipWPEBLOMMI8381-66-12 10:54:00 Test Item Value Reference Range Interpretation Comments Sodium Lvl (test code = Sodium Lvl) 141 135-145 N [facility] HospitalCxufzeeZOWKRJYGG9927-65-57 10:54:00 Test Item Value Reference Range Interpretation Comments Glucose Lvl (test code = Glucose Lvl) 83 [facility] HospitalNhiplsqIPSACGOOL0798-47-00 10:54:00 Test Item Value Reference Range Interpretation Comments Calcium Lvl (test code = Calcium Lvl) 8.4 8.5-10.5 L [facility] HospitalTsccxstWOZWCZDWK6159-38-55 10:54:00 Test Item Value Reference Range Interpretation Comments AGAP (test code = AGAP) 14.1 10.0-20.0 N [facility] CenterWsovnowGTLGAQSLEL8281-30-72 10:54:00 Test Item Value Reference Range Interpretation Comments Hct (test code = Hct) 35.5 36.0-48.0 L [facility] CenterMhdwzqbNHNISRQWCO5857-35-71 10:54:00 Test Item Value Reference Range Interpretation Comments WBC (test code = WBC) 4.7 3.7-10.4 N [facility] CenterEvilgywEYQSUCUZLP0720-95-09 10:54:00 Test Item Value Reference Range Interpretation Comments MCV (test code = MCV) 92.6 81.0-99.0 [facility]OmwwcdpCWTFJFKHIP3891-25-64 10:54:00 Test Item Value Reference Range Interpretation Comments MCH (test code = MCH) 31.4 pg 27.0-31.0 [facility] CenterNnswytoVNRHVHPBPZ7957-61-30 10:54:00 Test Item Value Reference Range Interpretation Comments RBC (test code = RBC) 3.84 4.20-5.40 L [facility] CenterXmgmctyEHHFKFTCEU2687-80-01 10:54:00 Test Item Value Reference Range Interpretation Comments Hgb (test code = Hgb) 12.1 12.0-16.0 N [facility] CenterHhiklyzOXNZXYAGZT4659-44-70 10:54:00 Test Item Value Reference Range Interpretation Comments Platelet (test code = Platelet) 287 133-450 N [facility] CenterDbtxemcGYYKVLAWRA8377-77-96 10:54:00 Test Item Value Reference Range Interpretation Comments RDW (test code = RDW) 12.7 11.5-14.5 N [facility] CenterEvauubdBOMXRUVHTS7964-16-75 10:54:00 Test Item Value Reference Range Interpretation Comments MCHC (test code = MCHC) 33.9 32.0-36.0 N [facility] CenterSasgfukGDABCHDWFO8304-72-97 10:54:00 Test Item Value Reference Range Interpretation Comments MPV (test code = MPV) 7.2 7.4-10.4 L [facility] CenterMooyyihDCLNPKNYUS3306-69-72 10:54:00 Test Item Value Reference Range Interpretation Comments INR (test code = INR) 0.95 0.85-1.17 N [facility] CenterTpkfoogPWQZVPAIVX1196-16-68 10:54:00 Test Item Value Reference Range Interpretation Comments PT (test code = PT) 12.7 s 12.0-14.7 N [facility] CenterTwfrnqwQEOUXCCSRZ5735-10-26 10:54:00 Test Item Value Reference Range Interpretation Comments PTT (test code = PTT) 28.5 s 22.9-35.8 N [facility] CenterQihctfcJOEZCKWMLI6653-94-40 10:54:00 Test Item Value Reference Range Interpretation Comments Eosinophils # (test code 0.1 See_Comment N [A utomated message] The = Eosinophils #) system [facility] generated this result tra nsmitted reference range : <=0.5. The reference r leo was not used to int erpret this result as normal/abnormal . [facility] CenterTnldabuBKHBLFALLY1257-42-81 10:54:00 Test Item Value Reference Range Interpretation Comments Basophils # (test code 0.0 See_Comment N [Aut omated message] The = Basophils #) system which generated this result tra nsmitted reference range : <=0.2. The reference r leo was not used to int erpret this result as normal/abnormal . [facility] CenterIpbxlsaOBAYIIARMX9639-15-22 10:54:00 Test Item Value Reference Range Interpretation Comments Basophils (test code = 0.4 See_Comment N [Aut omated message] The Basophils) system which ge nerated this result tra nsmitted reference range : <=1.0. The reference r leo was not used to int erpret this result as normal/abnormal . [facility] CenterXkmtlskQDMUUHGDHD5536-71-65 10:54:00 Test Item Value Reference Range Interpretation Comments Segs-Bands # (test code = Segs-Bands #) 2.1 1.5-8.1 N [facility] CenterFdectasSQPMDHUJFI4067-64-21 10:54:00 Test Item Value Reference Range Interpretation Comments Monocytes (test code = Monocytes) 9.0 2.0-12.0 N [facility] CenterKapfaffWLZPADMLBS8756-23-56 10:54:00 Test Item Value Reference Range Interpretation Comments Eosinophils (test code = 2.4 See_Comment N [A utomated message] The Eosinophils) system which ge nerated this result tra nsmitted reference range : <=4.0. The reference r leo was not used to int erpret this result as normal/abnormal . [facility] CenterNqwdiaxIAPRQZIAXW7368-15-19 10:54:00 Test Item Value Reference Range Interpretation Comments Monocytes # (test code 0.4 See_Comment N [Aut omated message] The = Monocytes #) system which generated this result tra nsmitted reference range : <=0.8. The reference r leo was not used to int erpret this result as normal/abnormal . [facility] CenterJvoiglkKIVGGDFANB4636-57-87 10:54:00 Test Item Value Reference Range Interpretation Comments Lymphocytes # (test code = Lymphocytes 2.0 1.0-5.5 N #) [facility] CenterIixxxxkGPDUITOCMO8591-26-09 10:54:00 Test Item Value Reference Range Interpretation Comments Lymphocytes (test code = Lymphocytes) 42.8 20.0-40.0 H [facility] CenterBijpzxjJHXPAFNZOG3013-28-58 10:54:00 Test Item Value Reference Range Interpretation Comments Segs (test code = Segs) 45.4 45.0-75.0 N [facility]TzgqzmbOQYBZXSBI6980-66-77 10:54:00 Test Item Value Reference Range Interpretation Comments CO2 (test code = CO2) 27 24-32 N [facility] HospitalQvqvmraAPKPOVSZT6243-71-65 10:54:00 Test Item Value Reference Range Interpretation Comments Chloride Lvl (test code = Chloride Lvl) 104 95-109 N [facility] HospitalOsjztcoYKUFWHENP9042-60-28 10:54:00 Test Item Value Reference Range Interpretation Comments Creatinine Lvl (test code = Creatinine 0.5 0.5-1.4 N Lvl) [facility] HospitalNvdjmohJCMLGYPEG2476-79-45 10:54:00 Test Item Value Reference Range Interpretation Comments BUN (test code = BUN) 10 7-22 N [facility] HospitalUeqnvikONLCCAXSJ8320-67-31 10:54:00 Test Item Value Reference Range Interpretation Comments Potassium Lvl (test code = Potassium 4.1 3.5-5.1 N Lvl) [facility] HospitalQnbeknzKWGCHBYOP1532-22-38 10:54:00 Test Item Value Reference Range Interpretation Comments Sodium Lvl (test code = Sodium Lvl) 141 135-145 N [facility] HospitalZhxjwhsNZDBXLUSE0998-55-92 10:54:00 Test Item Value Reference Range Interpretation Comments Glucose Lvl (test code = Glucose Lvl) 83 [facility] HospitalMocrbrhTDLGYKDAC7742-64-25 10:54:00 Test Item Value Reference Range Interpretation Comments Calcium Lvl (test code = Calcium Lvl) 8.4 8.5-10.5 L [facility] HospitalJybinipSBZXCEFOU8609-78-54 10:54:00 Test Item Value Reference Range Interpretation Comments AGAP (test code = AGAP) 14.1 10.0-20.0 N [facility] CenterXoqpkdgHOJMLADTHL8350-41-70 10:54:00 Test Item Value Reference Range Interpretation Comments Hct (test code = Hct) 35.5 36.0-48.0 L [facility] CenterXaplgvxNEHHYOIEHQ1287-94-16 10:54:00 Test Item Value Reference Range Interpretation Comments WBC (test code = WBC) 4.7 3.7-10.4 N [facility] CenterKzplrrbDXRBAQEWAE0448-82-71 10:54:00 Test Item Value Reference Range Interpretation Comments MCV (test code = MCV) 92.6 81.0-99.0 N [facility] CenterMafanhnNJJTVHGWGN4285-20-61 10:54:00 Test Item Value Reference Range Interpretation Comments MCH (test code = MCH) 31.4 pg 27.0-31.0 H [facility] CenterCxlzsscYEOBJJFGYV7578-72-53 10:54:00 Test Item Value Reference Range Interpretation Comments RBC (test code = RBC) 3.84 4.20-5.40 L [facility] CenterAigxhxyVGFGLKMPFY4689-12-49 10:54:00 Test Item Value Reference Range Interpretation Comments Hgb (test code = Hgb) 12.1 12.0-16.0 N [facility] CenterWsjlddzJVEWWXAHSF6540-87-19 10:54:00 Test Item Value Reference Range Interpretation Comments Platelet (test code = Platelet) 287 133-450 N [facility] CenterVgrjdarQOHOKCRIXI6842-91-56 10:54:00 Test Item Value Reference Range Interpretation Comments RDW (test code = RDW) 12.7 11.5-14.5 N [facility] CenterHvtepkoNRUZBHXRIY5463-93-64 10:54:00 Test Item Value Reference Range Interpretation Comments MCHC (test code = MCHC) 33.9 32.0-36.0 N [facility] CenterTswbopjGFORDTCKUA1379-10-79 10:54:00 Test Item Value Reference Range Interpretation Comments MPV (test code = MPV) 7.2 7.4-10.4 L [facility] CenterCsfkitiUPMETXYIZY5642-56-72 10:54:00 Test Item Value Reference Range Interpretation Comments INR (test code = INR) 0.95 0.85-1.17 N [facility] CenterAxszcmoGULVKNXGYJ1442-78-39 10:54:00 Test Item Value Reference Range Interpretation Comments PT (test code = PT) 12.7 s 12.0-14.7 N [facility] CenterOtktnseBBDGIKMMSB8087-39-41 10:54:00 Test Item Value Reference Range Interpretation Comments PTT (test code = PTT) 28.5 s 22.9-35.8 N [facility] CenterDmaqhthWXBLUVKEKA3579-99-93 10:54:00 Test Item Value Reference Range Interpretation Comments Eosinophils # (test code 0.1 See_Comment N [A utomated message] The = Eosinophils #) system whic h generated this result tra nsmitted reference range : <=0.5. The reference r leo was not used to int erpret this result as normal/abnormal . [facility] CenterDapmxjePIJOSQYERF2605-07-48 10:54:00 Test Item Value Reference Range Interpretation Comments Basophils # (test code 0.0 See_Comment N [Aut omated message] The = Basophils #) system which generated this result tra nsmitted reference range : <=0.2. The reference r leo was not used to int erpret this result as normal/abnormal . [facility] CenterIemyavkMIQXFRGHJE8124-27-34 10:54:00 Test Item Value Reference Range Interpretation Comments Basophils (test code = 0.4 See_Comment N [Aut omated message] The Basophils) system which ge nerated this result tra nsmitted reference range : <=1.0. The reference r leo was not used to int erpret this result as normal/abnormal . [facility] CenterCnkymvjHSDGTTAWIY0177-74-93 10:54:00 Test Item Value Reference Range Interpretation Comments Segs-Bands # (test code = Segs-Bands #) 2.1 1.5-8.1 N [facility] CenterXduzjxoYGVZWSIDLX3116-70-69 10:54:00 Test Item Value Reference Range Interpretation Comments Monocytes (test code = Monocytes) 9.0 2.0-12.0 N [facility] CenterYqkgvufPLPZJCGCKJ2109-15-38 10:54:00 Test Item Value Reference Range Interpretation Comments Eosinophils (test code = 2.4 See_Comment N [A utomated message] The Eosinophils) system which ge nerated this result tra nsmitted reference range : <=4.0. The reference r leo was not used to int erpret this result as normal/abnormal . [facility] CenterEdwtaljDQCDTYIWQH8804-56-67 10:54:00 Test Item Value Reference Range Interpretation Comments Monocytes # (test code 0.4 See_Comment N [Aut omated message] The = Monocytes #) system which generated this result tra nsmitted reference range : <=0.8. The reference r leo was not used to int erpret this result as normal/abnormal . [facility] CenterSlxqlnbDALLWJBGYU3382-44-18 10:54:00 Test Item Value Reference Range Interpretation Comments Lymphocytes # (test code = Lymphocytes 2.0 1.0-5.5 N #) [facility] CenterUxyzltwEQPZPUNHQZ7792-25-84 10:54:00 Test Item Value Reference Range Interpretation Comments Lymphocytes (test code = Lymphocytes) 42.8 20.0-40.0 H [facility] CenterCkwsaowIBKMQEEBVJ4060-23-10 10:54:00 Test Item Value Reference Range Interpretation Comments Segs (test code = Segs) 45.4 45.0-75.0 N [facility] HospitalHdargxwIQEDPOAAI2321-11-87 10:54:00 Test Item Value Reference Range Interpretation Comments CO2 (test code = CO2) 27 24-32 N [facility] HospitalYzvinwjECIALCSPJ4227-15-36 10:54:00 Test Item Value Reference Range Interpretation Comments Chloride Lvl (test code = Chloride Lvl) 104 95-109 N [facility] HospitalOyhvbelQEQWZOXCP3403-79-71 10:54:00 Test Item Value Reference Range Interpretation Comments Creatinine Lvl (test code = Creatinine 0.5 0.5-1.4 N Lvl) [facility] HospitalIrvcyfjGKMWMNRMA4651-93-87 10:54:00 Test Item Value Reference Range Interpretation Comments BUN (test code = BUN) 10 7-22 N [facility] HospitalMflkdowYLHCVKHNX3865-40-58 10:54:00 Test Item Value Reference Range Interpretation Comments Potassium Lvl (test code = Potassium 4.1 3.5-5.1 N Lvl) [facility] HospitalXozhumzKNUSZVTWZ2780-14-54 10:54:00 Test Item Value Reference Range Interpretation Comments Sodium Lvl (test code = Sodium Lvl) 141 135-145 N [facility] HospitalQbfdmeqKSJZPXTBO9509-79-43 10:54:00 Test Item Value Reference Range Interpretation Comments Glucose Lvl (test code = Glucose Lvl) 83 [facility] HospitalWyaakdsXITUXHFGN4383-69-36 10:54:00 Test Item Value Reference Range Interpretation Comments Calcium Lvl (test code = Calcium Lvl) 8.4 8.5-10.5 L [facility] HospitalVgdompgBBSJPEQNQ9966-00-77 10:54:00 Test Item Value Reference Range Interpretation Comments AGAP (test code = AGAP) 14.1 10.0-20.0 N [facility] CenterNgorowqTDXDVWOGFP3946-13-31 10:54:00 Test Item Value Reference Range Interpretation Comments Hct (test code = Hct) 35.5 36.0-48.0 L [facility] CenterLnvcddiPUHMXWDEID1201-83-45 10:54:00 Test Item Value Reference Range Interpretation Comments WBC (test code = WBC) 4.7 3.7-10.4 N [facility] CenterAiduigmQSYSNZEPOH4920-41-27 10:54:00 Test Item Value Reference Range Interpretation Comments MCV (test code = MCV) 92.6 81.0-99.0 N [facility] CenterDwnduyoVQYDQEXOZC6403-96-18 10:54:00 Test Item Value Reference Range Interpretation Comments MCH (test code = MCH) 31.4 pg 27.0-31.0 H [facility] CenterWggshrtSFLLGQMIJK0592-49-96 10:54:00 Test Item Value Reference Range Interpretation Comments RBC (test code = RBC) 3.84 4.20-5.40 L [facility] CenterYcbzbwhRNDGKTCJHI9804-66-70 10:54:00 Test Item Value Reference Range Interpretation Comments Hgb (test code = Hgb) 12.1 12.0-16.0 N [facility] CenterZhigqppVTNCUQSBUZ7796-11-29 10:54:00 Test Item Value Reference Range Interpretation Comments Platelet (test code = Platelet) 287 133-450 N [facility] CenterYvxslhbSADOYRNJLA1915-38-96 10:54:00 Test Item Value Reference Range Interpretation Comments RDW (test code = RDW) 12.7 11.5-14.5 N [facility] CenterZyvjnsiKMSPXKOKFN0543-94-60 10:54:00 Test Item Value Reference Range Interpretation Comments MCHC (test code = MCHC) 33.9 32.0-36.0 N [facility] CenterYxaipupNRIPNZTNLD3988-24-40 10:54:00 Test Item Value Reference Range Interpretation Comments MPV (test code = MPV) 7.2 7.4-10.4 [facility]2012-03-19 10:54:00 Test Item Value Reference Range Interpretation Comments INR (test code = INR) 0.95 0.85-1.17 N [facility] CenterXvodjtxQHVZYPJGQS3559-57-44 10:54:00 Test Item Value Reference Range Interpretation Comments PT (test code = PT) 12.7 s 12.0-14.7 N [facility] CenterPzhaisqKISHABBBOB1905-38-46 10:54:00 Test Item Value Reference Range Interpretation Comments PTT (test code = PTT) 28.5 s 22.9-35.8 N [facility] CenterKmfxyylJTJVSLTXYN2469-49-36 10:54:00 Test Item Value Reference Range Interpretation Comments Eosinophils # (test code 0.1 See_Comment N [A utomated message] The = Eosinophils #) system whic h generated this result tra nsmitted reference range : <=0.5. The reference r leo was not used to int erpret this result as normal/abnormal . [facility] CenterUzmphtcVLWINSWRQS3473-93-17 10:54:00 Test Item Value Reference Range Interpretation Comments Basophils # (test code 0.0 See_Comment N [Aut omated message] The = Basophils #) system which generated this result tra nsmitted reference range : <=0.2. The reference r leo was not used to int erpret this result as normal/abnormal . [facility] CenterHhtcfagANMZIXGCJK7420-12-89 10:54:00 Test Item Value Reference Range Interpretation Comments Basophils (test code = 0.4 See_Comment N [Aut omated message] The Basophils) system which ge nerated this result tra nsmitted reference range : <=1.0. The reference r leo was not used to int erpret this result as normal/abnormal . [facility] CenterGojixfpACGIYDTHPL4950-49-85 10:54:00 Test Item Value Reference Range Interpretation Comments Segs-Bands # (test code = Segs-Bands #) 2.1 1.5-8.1 N [facility] CenterOfuneezCOJGZEREAH0175-15-43 10:54:00 Test Item Value Reference Range Interpretation Comments Monocytes (test code = Monocytes) 9.0 2.0-12.0 N [facility] CenterTsucpjlIWYPVFTPYO2829-05-73 10:54:00 Test Item Value Reference Range Interpretation Comments Eosinophils (test code = 2.4 See_Comment N [A utomated message] The Eosinophils) system which ge nerated this result tra nsmitted reference range : <=4.0. The reference r leo was not used to int erpret this result as normal/abnormal . [facility] CenterXbtvkpoMAWCNLPHTY8436-12-02 10:54:00 Test Item Value Reference Range Interpretation Comments Monocytes # (test code 0.4 See_Comment N [Aut omated message] The = Monocytes #) system which generated this result tra nsmitted reference range : <=0.8. The reference r leo was not used to int erpret this result as normal/abnormal . [facility] CenterBbelccjRVSGUNSXOZ9602-08-25 10:54:00 Test Item Value Reference Range Interpretation Comments Lymphocytes # (test code = Lymphocytes 2.0 1.0-5.5 N #) [facility] CenterJzvfqlwKHHYEBJIUY2438-85-67 10:54:00 Test Item Value Reference Range Interpretation Comments Lymphocytes (test code = Lymphocytes) 42.8 20.0-40.0 H [facility] CenterHnmvtuvEEEVDNJTKI6134-08-23 10:54:00 Test Item Value Reference Range Interpretation Comments Segs (test code = Segs) 45.4 45.0-75.0 N [facility] HospitalTdjhyztSXFKVUZUI5965-31-02 10:54:00 Test Item Value Reference Range Interpretation Comments CO2 (test code = CO2) 27 24-32 N [facility] HospitalBhpqdnzJZTRHWVMU0755-97-18 10:54:00 Test Item Value Reference Range Interpretation Comments Chloride Lvl (test code = Chloride Lvl) 104 95-109 N [facility] HospitalKcqyeojVFLWGYRQL7331-90-56 10:54:00 Test Item Value Reference Range Interpretation Comments Creatinine Lvl (test code = Creatinine 0.5 0.5-1.4 N Lvl) [facility] HospitalVxetyliMSVXKFUTG8795-79-26 10:54:00 Test Item Value Reference Range Interpretation Comments BUN (test code = BUN) 10 7-22 N [facility] HospitalVwdrvfjAIRDOMSUY8216-50-41 10:54:00 Test Item Value Reference Range Interpretation Comments Potassium Lvl (test code = Potassium 4.1 3.5-5.1 N Lvl) [facility] HospitalQudqfsdXOYBFFKCC9230-62-55 10:54:00 Test Item Value Reference Range Interpretation Comments Sodium Lvl (test code = Sodium Lvl) 141 135-145 N [facility] HospitalAmricqbMTFRAASVY5810-24-27 10:54:00 Test Item Value Reference Range Interpretation Comments Glucose Lvl (test code = Glucose Lvl) 83 [facility] HospitalDuykktlETTJSEQEZ5864-33-06 10:54:00 Test Item Value Reference Range Interpretation Comments Calcium Lvl (test code = Calcium Lvl) 8.4 8.5-10.5 L [facility] HospitalWzvgqhyILPTNNZIF5136-13-36 10:54:00 Test Item Value Reference Range Interpretation Comments AGAP (test code = AGAP) 14.1 10.0-20.0 N [facility] CenterMntnrfyUJQJVKEGBM2415-83-36 10:54:00 Test Item Value Reference Range Interpretation Comments Hct (test code = Hct) 35.5 36.0-48.0 L [facility] CenterVvdwmvqLXJSZLVJKZ9467-58-30 10:54:00 Test Item Value Reference Range Interpretation Comments WBC (test code = WBC) 4.7 3.7-10.4 N [facility] CenterSuahdmrARSQEJQRMP6120-65-63 10:54:00 Test Item Value Reference Range Interpretation Comments MCV (test code = MCV) 92.6 81.0-99.0 N [facility] CenterAjskviqGGEDMPZGCT5789-62-37 10:54:00 Test Item Value Reference Range Interpretation Comments MCH (test code = MCH) 31.4 pg 27.0-31.0 H [facility] CenterHrnhjczHNRIEJXJSL2024-96-83 10:54:00 Test Item Value Reference Range Interpretation Comments RBC (test code = RBC) 3.84 4.20-5.40 L [facility] CenterZfjsarlSRMXGEWTNA1428-16-93 10:54:00 Test Item Value Reference Range Interpretation Comments Hgb (test code = Hgb) 12.1 12.0-16.0 N [facility] CenterWuddqyyYTJCMHEOQS8905-13-52 10:54:00 Test Item Value Reference Range Interpretation Comments Platelet (test code = Platelet) 287 133-450 N [facility] CenterRxfgcibVGWTTGRFGM1214-60-46 10:54:00 Test Item Value Reference Range Interpretation Comments RDW (test code = RDW) 12.7 11.5-14.5 N [facility] CenterDuztzceAHIXMXNULK6286-02-63 10:54:00 Test Item Value Reference Range Interpretation Comments MCHC (test code = MCHC) 33.9 32.0-36.0 N [facility] CenterKvyxvzjBWKKODAPTX6693-40-91 10:54:00 Test Item Value Reference Range Interpretation Comments MPV (test code = MPV) 7.2 7.4-10.4 L [facility] CenterWhgfgfbAECUUIGAOD4290-15-68 10:54:00 Test Item Value Reference Range Interpretation Comments INR (test code = INR) 0.95 0.85-1.17 N [facility] CenterDpyymfcLEQSFUSIGW6103-60-40 10:54:00 Test Item Value Reference Range Interpretation Comments PT (test code = PT) 12.7 s 12.0-14.7 N [facility] CenterIqnpqsnNFHQWONBMP4967-96-64 10:54:00 Test Item Value Reference Range Interpretation Comments PTT (test code = PTT) 28.5 s 22.9-35.8 N [facility] CenterHlaoyuwYYXBWLVQOK6802-01-17 10:54:00 Test Item Value Reference Range Interpretation Comments Eosinophils # (test code 0.1 See_Comment N [A utomated message] The = Eosinophils #) system whic h generated this result tra nsmitted reference range : <=0.5. The reference r leo was not used to int erpret this result as normal/abnormal . [facility] CenterLxidynuXOYQPCQDXL1817-56-25 10:54:00 Test Item Value Reference Range Interpretation Comments Basophils # (test code 0.0 See_Comment N [Aut omated message] The = Basophils #) system which generated this result tra nsmitted reference range : <=0.2. The reference r leo was not used to int erpret this result as normal/abnormal . [facility] CenterOjrmdjiEMCLXZXXOF1177-62-80 10:54:00 Test Item Value Reference Range Interpretation Comments Basophils (test code = 0.4 See_Comment N [Aut omated message] The Basophils) system which ge nerated this result tra nsmitted reference range : <=1.0. The reference r leo was not used to int erpret this result as normal/abnormal . [facility] CenterCdorppyTRHXDNTEQI7046-37-87 10:54:00 Test Item Value Reference Range Interpretation Comments Segs-Bands # (test code = Segs-Bands #) 2.1 1.5-8.1 N [facility] CenterFluatdkKSNEZXUHAS4694-19-85 10:54:00 Test Item Value Reference Range Interpretation Comments Monocytes (test code = Monocytes) 9.0 2.0-12.0 N [facility] CenterGpiwnbxUSNDBFCNVS5290-45-34 10:54:00 Test Item Value Reference Range Interpretation Comments Eosinophils (test code = 2.4 See_Comment N [A utomated message] The Eosinophils) system which ge nerated this result tra nsmitted reference range : <=4.0. The reference r leo was not used to int erpret this result as normal/abnormal . [facility] CenterHhourxmMWHVWRBCHO7602-87-74 10:54:00 Test Item Value Reference Range Interpretation Comments Monocytes # (test code 0.4 See_Comment N [Aut omated message] The = Monocytes #) system which generated this result tra nsmitted reference range : <=0.8. The reference r leo was not used to int erpret this result as normal/abnormal . [facility] CenterAopcmanGEBCMXJRAJ2372-67-37 10:54:00 Test Item Value Reference Range Interpretation Comments Lymphocytes # (test code = Lymphocytes 2.0 1.0-5.5 N #) [facility] CenterNijrpedCMJYOUOUFT2004-84-13 10:54:00 Test Item Value Reference Range Interpretation Comments Lymphocytes (test code = Lymphocytes) 42.8 20.0-40.0 H [facility] CenterAwpkkknMLVXOEKNAJ5213-19-16 10:54:00 Test Item Value Reference Range Interpretation Comments Segs (test code = Segs) 45.4 45.0-75.0 N [facility] HospitalMgnryeoVPISHYPCT2366-70-92 10:02:00 Test Item Value Reference Range Interpretation Comments Chloride Lvl (test code = Chloride Lvl) 105 95-109 N [facility] HospitalZkrgwxoEYKWXIYOQ9285-43-51 10:02:00 Test Item Value Reference Range Interpretation Comments Potassium Lvl (test code = Potassium 4.1 3.5-5.1 N Lvl) [facility] HospitalTafxzggLXATIGMCW1233-74-00 10:02:00 Test Item Value Reference Range Interpretation Comments Sodium Lvl (test code = Sodium Lvl) 143 135-145 N [facility] HospitalIovxnliBZSRSYGRE3315-08-08 10:02:00 Test Item Value Reference Range Interpretation Comments CO2 (test code = CO2) 29 24-32 N [facility] HospitalSntvyetUMEVKREWN0257-81-73 10:02:00 Test Item Value Reference Range Interpretation Comments Calcium Lvl (test code = Calcium Lvl) 8.7 8.5-10.5 N [facility] HospitalQokhsjtPBZSPNLSA3428-10-35 10:02:00 Test Item Value Reference Range Interpretation Comments BUN (test code = BUN) 6 7-22 L [facility] HospitalHsvszljYPBMBRFYL6341-08-76 10:02:00 Test Item Value Reference Range Interpretation Comments Creatinine Lvl (test code = Creatinine 0.6 0.5-1.4 N Lvl) [facility] HospitalPgiohipAPHCPGDCX2594-24-09 10:02:00 Test Item Value Reference Range Interpretation Comments Glucose Lvl (test code = Glucose Lvl) 118 [facility] HospitalKglhkicMEQGBEGIT9868-18-49 10:02:00 Test Item Value Reference Range Interpretation Comments AGAP (test code = AGAP) 13.1 10.0-20.0 N [facility] CenterQyvtqqfZXWQIVIEOX5772-59-32 10:02:00 Test Item Value Reference Range Interpretation Comments Basophils # (test code 0.0 See_Comment N [Aut omated message] The = Basophils #) system which generated this result tra nsmitted reference range : <=0.2. The reference r leo was not used to int erpret this result as normal/abnormal . [facility]HcpsmttXGVDUOJXCP8269-04-65 10:02:00 Test Item Value Reference Range Interpretation Comments Monocytes # (test code 0.3 See_Comment N [Aut omated message] The = Monocytes #) system which generated this result tra nsmitted reference range : <=0.8. The reference r leo was not used to int erpret this result as normal/abnormal . [facility] CenterAquzgduDSHPGHWFGA9827-85-06 10:02:00 Test Item Value Reference Range Interpretation Comments Eosinophils # (test code 0.1 See_Comment N [A utomated message] The = Eosinophils #) system whic h generated this result tra nsmitted reference range : <=0.5. The reference r leo was not used to int erpret this result as normal/abnormal . [facility] CenterRgaqpbzNBCADGHWYK8541-93-38 10:02:00 Test Item Value Reference Range Interpretation Comments Segs-Bands # (test code = Segs-Bands #) 2.8 1.5-8.1 N [facility] CenterRvklvfhGTYXHBWYPX0348-69-44 10:02:00 Test Item Value Reference Range Interpretation Comments Lymphocytes # (test code = Lymphocytes 1.7 1.0-5.5 N #) [facility] CenterReowoliAZRYHYXHLN4666-51-01 10:02:00 Test Item Value Reference Range Interpretation Comments Basophils (test code = 0.6 See_Comment N [Aut omated message] The Basophils) system which ge nerated this result tra nsmitted reference range : <=1.0. The reference r leo was not used to int erpret this result as normal/abnormal . [facility] CenterTsajvspTVMYFJBEOW9131-96-97 10:02:00 Test Item Value Reference Range Interpretation Comments Monocytes (test code = Monocytes) 6.9 2.0-12.0 N [facility] CenterNbwzzsoIYLBENQJRL6590-14-18 10:02:00 Test Item Value Reference Range Interpretation Comments Eosinophils (test code = 2.0 See_Comment N [A utomated message] The Eosinophils) system which ge nerated this result tra nsmitted reference range : <=4.0. The reference r leo was not used to int erpret this result as normal/abnormal . [facility] CenterXfvzmnhEJXHAUJEYB6925-59-74 10:02:00 Test Item Value Reference Range Interpretation Comments Segs (test code = Segs) 55.8 45.0-75.0 N [facility] CenterXemqazrRRNSHINZNE0652-34-33 10:02:00 Test Item Value Reference Range Interpretation Comments Lymphocytes (test code = Lymphocytes) 34.7 20.0-40.0 N [facility] CenterHovlitaUBBIXCROHD1140-97-87 10:02:00 Test Item Value Reference Range Interpretation Comments PTT (test code = PTT) 32.2 s 22.9-35.8 N [facility] CenterCipjtgrCDLIWIFUIN2004-73-88 10:02:00 Test Item Value Reference Range Interpretation Comments PT (test code = PT) 13.3 s 12.0-14.7 N [facility] CenterIbeldmoIQNRTUWEDC6458-15-96 10:02:00 Test Item Value Reference Range Interpretation Comments INR (test code = INR) 1.01 0.85-1.17 N [facility] CenterYsqkddaENKPGQKOUN7964-16-64 10:02:00 Test Item Value Reference Range Interpretation Comments Hct (test code = Hct) 27.5 36.0-48.0 L [facility] CenterVfnmwvrRPMMVKPPYS2359-67-17 10:02:00 Test Item Value Reference Range Interpretation Comments RBC (test code = RBC) 3.34 4.20-5.40 L [facility] CenterCmnwvwtMIYNNZNCIP7088-17-04 10:02:00 Test Item Value Reference Range Interpretation Comments Hgb (test code = Hgb) 9.7 12.0-16.0 L [facility] CenterOepszdmVBYHLRGFCV0189-38-10 10:02:00 Test Item Value Reference Range Interpretation Comments WBC (test code = WBC) 5.0 3.7-10.4 N [facility] CenterXppoyswJSCBTOHVLE1926-95-36 10:02:00 Test Item Value Reference Range Interpretation Comments MPV (test code = MPV) 9.2 7.4-10.4 N [facility] CenterVejzjioTQEADZMRXQ7482-80-82 10:02:00 Test Item Value Reference Range Interpretation Comments Platelet (test code = Platelet) 240 133-450 N [facility] CenterVkcblgjAYUFFNMWSF3393-53-37 10:02:00 Test Item Value Reference Range Interpretation Comments RDW (test code = RDW) 14.3 11.5-14.5 N [facility] CenterFniwfzuERKMSSGFIH8020-21-36 10:02:00 Test Item Value Reference Range Interpretation Comments MCHC (test code = MCHC) 35.2 32.0-36.0 N [facility] CenterCfzqsvhNKXKBOWANP3796-97-24 10:02:00 Test Item Value Reference Range Interpretation Comments MCH (test code = MCH) 28.9 pg 27.0-31.0 N [facility] CenterRkeqpypYPLNLSIQKN4874-72-49 10:02:00 Test Item Value Reference Range Interpretation Comments MCV (test code = MCV) 82.1 81.0-99.0 N [facility]ZaalcqdARQZJTKRT6888-23-34 10:02:00 Test Item Value Reference Range Interpretation Comments Chloride Lvl (test code = Chloride Lvl) 105 95-109 N [facility] HospitalCcvdjxfNMJQMWZVL6766-37-21 10:02:00 Test Item Value Reference Range Interpretation Comments Potassium Lvl (test code = Potassium 4.1 3.5-5.1 N Lvl) [facility] HospitalPfhttaxLZOWYPXFE0037-69-93 10:02:00 Test Item Value Reference Range Interpretation Comments Sodium Lvl (test code = Sodium Lvl) 143 135-145 N [facility] HospitalAxgirjkACCBCBDAB4299-40-77 10:02:00 Test Item Value Reference Range Interpretation Comments CO2 (test code = CO2) 29 24-32 N [facility] HospitalUztatfwVHLOMSTOG0143-78-32 10:02:00 Test Item Value Reference Range Interpretation Comments Calcium Lvl (test code = Calcium Lvl) 8.7 8.5-10.5 N [facility] HospitalChivufrGXACXCNRS2037-93-41 10:02:00 Test Item Value Reference Range Interpretation Comments BUN (test code = BUN) 6 7-22 L [facility] HospitalSgfnfrgLVXFSQXEP9283-36-82 10:02:00 Test Item Value Reference Range Interpretation Comments Creatinine Lvl (test code = Creatinine 0.6 0.5-1.4 N Lvl) [facility] HospitalDuubbbtHLAUCFGYV3144-33-42 10:02:00 Test Item Value Reference Range Interpretation Comments Glucose Lvl (test code = Glucose Lvl) 118 [facility] HospitalDdwzjuyISDZUUUMH1947-54-24 10:02:00 Test Item Value Reference Range Interpretation Comments AGAP (test code = AGAP) 13.1 10.0-20.0 N [facility] CenterDkttkkwEEXVHVBZNW8149-97-88 10:02:00 Test Item Value Reference Range Interpretation Comments Basophils # (test code 0.0 See_Comment N [Aut omated message] The = Basophils #) system which generated this result tra nsmitted reference range : <=0.2. The reference r leo was not used to int erpret this result as normal/abnormal . [facility] CenterDbycnzeZVKREJYHTX6651-98-27 10:02:00 Test Item Value Reference Range Interpretation Comments Monocytes # (test code 0.3 See_Comment N [Aut omated message] The = Monocytes #) system which generated this result tra nsmitted reference range : <=0.8. The reference r leo was not used to int erpret this result as normal/abnormal . [facility] CenterVunqaklBLKLNJCBCL7691-20-10 10:02:00 Test Item Value Reference Range Interpretation Comments Eosinophils # (test code 0.1 See_Comment N [A utomated message] The = Eosinophils #) system whic h generated this result tra nsmitted reference range : <=0.5. The reference r leo was not used to int erpret this result as normal/abnormal . [facility] CenterFchlvhsISSDBIOCXH5948-65-22 10:02:00 Test Item Value Reference Range Interpretation Comments Segs-Bands # (test code = Segs-Bands #) 2.8 1.5-8.1 N [facility] CenterNujumtxCURZVTSFMH0584-38-44 10:02:00 Test Item Value Reference Range Interpretation Comments Lymphocytes # (test code = Lymphocytes 1.7 1.0-5.5 N #) [facility] CenterVjkwjdiTHBJJPNCTC5796-21-99 10:02:00 Test Item Value Reference Range Interpretation Comments Basophils (test code = 0.6 See_Comment N [Aut omated message] The Basophils) system which ge nerated this result tra nsmitted reference range : <=1.0. The reference r leo was not used to int erpret this result as normal/abnormal . [facility] CenterAznawwmVLXDBVMCJK5423-83-66 10:02:00 Test Item Value Reference Range Interpretation Comments Monocytes (test code = Monocytes) 6.9 2.0-12.0 N [facility] CenterDqfxcflXGUZZDLXIL8028-90-67 10:02:00 Test Item Value Reference Range Interpretation Comments Eosinophils (test code = 2.0 See_Comment N [A utomated message] The Eosinophils) system which ge nerated this result tra nsmitted reference range : <=4.0. The reference r leo was not used to int erpret this result as normal/abnormal . [facility] CenterXavznszSLRQMWXWWS0911-39-45 10:02:00 Test Item Value Reference Range Interpretation Comments Segs (test code = Segs) 55.8 45.0-75.0 N [facility] CenterJfkyfueLLBJZSTJVS5607-85-35 10:02:00 Test Item Value Reference Range Interpretation Comments Lymphocytes (test code = Lymphocytes) 34.7 20.0-40.0 N [facility] CenterDqguwxqKFVHVUQGIQ7834-90-32 10:02:00 Test Item Value Reference Range Interpretation Comments PTT (test code = PTT) 32.2 s 22.9-35.8 N [facility] CenterDqlmjdeUZRAPGBWWH1572-52-79 10:02:00 Test Item Value Reference Range Interpretation Comments PT (test code = PT) 13.3 s 12.0-14.7 N [facility] CenterBgcdzjvJJAYZMLFJB2062-90-74 10:02:00 Test Item Value Reference Range Interpretation Comments INR (test code = INR) 1.01 0.85-1.17 N [facility] CenterKrkhtylBFNNNPNCVX3124-14-92 10:02:00 Test Item Value Reference Range Interpretation Comments Hct (test code = Hct) 27.5 36.0-48.0 L [facility] CenterLvrfzppUSLMGNZAFL0758-20-88 10:02:00 Test Item Value Reference Range Interpretation Comments RBC (test code = RBC) 3.34 4.20-5.40 L [facility] CenterRgzbcaiRPIANYNZNE0763-62-16 10:02:00 Test Item Value Reference Range Interpretation Comments Hgb (test code = Hgb) 9.7 12.0-16.0 L [facility] CenterBijmcxyQPKZZCJHEH7022-90-71 10:02:00 Test Item Value Reference Range Interpretation Comments WBC (test code = WBC) 5.0 3.7-10.4 N [facility] CenterPiupalnDKHZBQYNMM6070-11-71 10:02:00 Test Item Value Reference Range Interpretation Comments MPV (test code = MPV) 9.2 7.4-10.4 N [facility] CenterRedqrmeLMZBGYIGNP6393-48-99 10:02:00 Test Item Value Reference Range Interpretation Comments Platelet (test code = Platelet) 240 133-450 N [facility] CenterVovcahnEZTROCEBZB9921-07-12 10:02:00 Test Item Value Reference Range Interpretation Comments RDW (test code = RDW) 14.3 11.5-14.5 N [facility] CenterChujminJXKCMDVAEE2054-93-01 10:02:00 Test Item Value Reference Range Interpretation Comments MCHC (test code = MCHC) 35.2 32.0-36.0 N [facility] CenterRkhdxkpXNYBKAKZNJ1178-56-52 10:02:00 Test Item Value Reference Range Interpretation Comments MCH (test code = MCH) 28.9 pg 27.0-31.0 N [facility] CenterRuksaheBWEIVZHLFO7532-38-48 10:02:00 Test Item Value Reference Range Interpretation Comments MCV (test code = MCV) 82.1 81.0-99.0 N [facility] HospitalSvyclaoISRYTSJQH8530-20-84 10:02:00 Test Item Value Reference Range Interpretation Comments Chloride Lvl (test code = Chloride Lvl) 105 95-109 N [facility] HospitalByltezpNXAOIIVBX0776-78-73 10:02:00 Test Item Value Reference Range Interpretation Comments Potassium Lvl (test code = Potassium 4.1 3.5-5.1 N Lvl) [facility] HospitalPpkyfahIPCZBTOKM0502-12-33 10:02:00 Test Item Value Reference Range Interpretation Comments Sodium Lvl (test code = Sodium Lvl) 143 135-145 N [facility] HospitalRlnadzyHNNEDILGS5208-05-09 10:02:00 Test Item Value Reference Range Interpretation Comments CO2 (test code = CO2) 29 24-32 N [facility] HospitalUpixzrcNGNWFXFDZ0266-02-94 10:02:00 Test Item Value Reference Range Interpretation Comments Calcium Lvl (test code = Calcium Lvl) 8.7 8.5-10.5 N [facility] HospitalFpzfnzoASNMROTUD3126-99-13 10:02:00 Test Item Value Reference Range Interpretation Comments BUN (test code = BUN) 6 7-22 L [facility] HospitalHaapvgkGFTYLDVPG7618-83-35 10:02:00 Test Item Value Reference Range Interpretation Comments Creatinine Lvl (test code = Creatinine 0.6 0.5-1.4 N Lvl) [facility] HospitalFwumlbrKFZZVEHFB2582-39-89 10:02:00 Test Item Value Reference Range Interpretation Comments Glucose Lvl (test code = Glucose Lvl) 118 [facility] HospitalNegcbqiIQTKXMSJR7947-02-06 10:02:00 Test Item Value Reference Range Interpretation Comments AGAP (test code = AGAP) 13.1 10.0-20.0 N [facility] CenterUinnehuHOFARTIHFQ0496-52-56 10:02:00 Test Item Value Reference Range Interpretation Comments Basophils # (test code 0.0 See_Comment N [Aut omated message] The = Basophils #) system which generated this result tra nsmitted reference range : <=0.2. The reference r leo was not used to int erpret this result as normal/abnormal . [facility] CenterQwykoueDWAEGWCHVZ4907-30-13 10:02:00 Test Item Value Reference Range Interpretation Comments Monocytes # (test code 0.3 See_Comment N [Aut omated message] The = Monocytes #) system which generated this result tra nsmitted reference range : <=0.8. The reference r leo was not used to int erpret this result as normal/abnormal . [facility] CenterMemusgxDQBBOTIFCR3228-95-70 10:02:00 Test Item Value Reference Range Interpretation Comments Eosinophils # (test code 0.1 See_Comment N [A utomated message] The = Eosinophils #) system whic h generated this result tra nsmitted reference range : <=0.5. The reference r leo was not used to int erpret this result as normal/abnormal . [facility] CenterKlensbnOEKUTYKZNX6965-69-47 10:02:00 Test Item Value Reference Range Interpretation Comments Segs-Bands # (test code = Segs-Bands #) 2.8 1.5-8.1 N [facility] CenterZjfplunXQTMOHRGIV0407-82-11 10:02:00 Test Item Value Reference Range Interpretation Comments Lymphocytes # (test code = Lymphocytes 1.7 1.0-5.5 N #) [facility] CenterWsqvxviMGISQEIEGF6420-69-97 10:02:00 Test Item Value Reference Range Interpretation Comments Basophils (test code = 0.6 See_Comment N [Aut omated message] The Basophils) system which ge nerated this result tra nsmitted reference range : <=1.0. The reference r leo was not used to int erpret this result as normal/abnormal . [facility] CenterApllgutBDXYOPXLKY9802-73-57 10:02:00 Test Item Value Reference Range Interpretation Comments Monocytes (test code = Monocytes) 6.9 2.0-12.0 N [facility] CenterUjkpdmdQGUUAQRUIV7078-02-19 10:02:00 Test Item Value Reference Range Interpretation Comments Eosinophils (test code = 2.0 See_Comment N [A utomated message] The Eosinophils) system which ge nerated this result tra nsmitted reference range : <=4.0. The reference r leo was not used to int erpret this result as normal/abnormal . [facility] CenterDprrhpfUCLWBJSFRJ6779-33-41 10:02:00 Test Item Value Reference Range Interpretation Comments Segs (test code = Segs) 55.8 45.0-75.0 N [facility] CenterGrdtrwfWLZFQYLNZE2970-00-30 10:02:00 Test Item Value Reference Range Interpretation Comments Lymphocytes (test code = Lymphocytes) 34.7 20.0-40.0 N [facility] CenterXcjzcgxIYCAGDRBXQ9318-72-22 10:02:00 Test Item Value Reference Range Interpretation Comments PTT (test code = PTT) 32.2 s 22.9-35.8 N [facility] CenterOyyqyuuAZAQMOCPEE9745-34-10 10:02:00 Test Item Value Reference Range Interpretation Comments PT (test code = PT) 13.3 s 12.0-14.7 N [facility] CenterAhnomuhRHPUHRVJEK1305-74-22 10:02:00 Test Item Value Reference Range Interpretation Comments INR (test code = INR) 1.01 0.85-1.17 N [facility] CenterFtmxfaeAIQQXVYMFZ3801-44-24 10:02:00 Test Item Value Reference Range Interpretation Comments Hct (test code = Hct) 27.5 36.0-48.0 L [facility] CenterKrxnlhaZKRFQFSYFF6028-03-31 10:02:00 Test Item Value Reference Range Interpretation Comments RBC (test code = RBC) 3.34 4.20-5.40 L [facility] CenterVuiaiwxFANRHCMAAX4853-55-27 10:02:00 Test Item Value Reference Range Interpretation Comments Hgb (test code = Hgb) 9.7 12.0-16.0 L [facility] CenterLcdsgxwORWUCVDVQG3440-61-65 10:02:00 Test Item Value Reference Range Interpretation Comments WBC (test code = WBC) 5.0 3.7-10.4 N [place] 216272-03-19 10:02:00 Test Item Value Reference Range Interpretation Comments MPV (test code = MPV) 9.2 7.4-10.4 N [facility] CenterJsajrimLPEEEOAPVG8163-03-03 10:02:00 Test Item Value Reference Range Interpretation Comments Platelet (test code = Platelet) 240 133-450 N [facility] CenterQawqvbvEZBJYESAKN4323-43-81 10:02:00 Test Item Value Reference Range Interpretation Comments RDW (test code = RDW) 14.3 11.5-14.5 N [facility] CenterYfaokvlXPPDLVNPHC1841-50-28 10:02:00 Test Item Value Reference Range Interpretation Comments MCHC (test code = MCHC) 35.2 32.0-36.0 N [facility] CenterRqprznsEUQDXAPLTH0478-70-31 10:02:00 Test Item Value Reference Range Interpretation Comments MCH (test code = MCH) 28.9 pg 27.0-31.0 N [facility] CenterVhdaqwxHZOUAHEVJT4973-63-74 10:02:00 Test Item Value Reference Range Interpretation Comments MCV (test code = MCV) 82.1 81.0-99.0 N [facility] HospitalYxpcpnhQQULBPNNA2782-58-59 10:02:00 Test Item Value Reference Range Interpretation Comments Chloride Lvl (test code = Chloride Lvl) 105 95-109 N [facility] HospitalIfkdjtfPSIBAYLYT4870-57-39 10:02:00 Test Item Value Reference Range Interpretation Comments Potassium Lvl (test code = Potassium 4.1 3.5-5.1 N Lvl) [facility] HospitalTzjlmubVMNROGLKA6060-87-93 10:02:00 Test Item Value Reference Range Interpretation Comments Sodium Lvl (test code = Sodium Lvl) 143 135-145 N [facility] HospitalJiarjulAFDTPHSHE1541-37-88 10:02:00 Test Item Value Reference Range Interpretation Comments CO2 (test code = CO2) 29 24-32 N [facility] HospitalBflbajbYUQQISEZY3943-02-83 10:02:00 Test Item Value Reference Range Interpretation Comments Calcium Lvl (test code = Calcium Lvl) 8.7 8.5-10.5 N [facility] HospitalXnjqklnHJQPVUVKF8841-91-28 10:02:00 Test Item Value Reference Range Interpretation Comments BUN (test code = BUN) 6 7-22 L [facility] HospitalVrgbbfaXDVQMENXN5715-21-67 10:02:00 Test Item Value Reference Range Interpretation Comments Creatinine Lvl (test code = Creatinine 0.6 0.5-1.4 N Lvl) [facility] HospitalTuczrrhWCZSRWZXB1349-84-25 10:02:00 Test Item Value Reference Range Interpretation Comments Glucose Lvl (test code = Glucose Lvl) 118 [facility] HospitalOvmsbzjRDHSILDAL6392-09-61 10:02:00 Test Item Value Reference Range Interpretation Comments AGAP (test code = AGAP) 13.1 10.0-20.0 N [facility] CenterZxbrmjvKDNCDPODMN6533-58-23 10:02:00 Test Item Value Reference Range Interpretation Comments Basophils # (test code 0.0 See_Comment N [Aut omated message] The = Basophils #) system which generated this result tra nsmitted reference range : <=0.2. The reference r leo was not used to int erpret this result as normal/abnormal . [facility] CenterDrgalfkPXCSKYDJOP5656-18-75 10:02:00 Test Item Value Reference Range Interpretation Comments Monocytes # (test code 0.3 See_Comment N [Aut omated message] The = Monocytes #) system which generated this result tra nsmitted reference range : <=0.8. The reference r leo was not used to int erpret this result as normal/abnormal . [facility] CenterXbvcbsqQBKRAYKDRK8410-17-42 10:02:00 Test Item Value Reference Range Interpretation Comments Eosinophils # (test code 0.1 See_Comment N [A utomated message] The = Eosinophils #) system whic h generated this result tra nsmitted reference range : <=0.5. The reference r leo was not used to int erpret this result as normal/abnormal . [facility] CenterMyoxkqgXWELOWXZGS9127-32-46 10:02:00 Test Item Value Reference Range Interpretation Comments Segs-Bands # (test code = Segs-Bands #) 2.8 1.5-8.1 N [facility] CenterSeevjlmSFBYLIBRPE8813-80-47 10:02:00 Test Item Value Reference Range Interpretation Comments Lymphocytes # (test code = Lymphocytes 1.7 1.0-5.5 N #) [facility] CenterWpygoxiJXZNMQXBTR4220-55-06 10:02:00 Test Item Value Reference Range Interpretation Comments Basophils (test code = 0.6 See_Comment N [Aut omated message] The Basophils) system which ge nerated this result tra nsmitted reference range : <=1.0. The reference r leo was not used to int erpret this result as normal/abnormal . [facility] CenterQjauigrZBWHZKEANX8470-68-80 10:02:00 Test Item Value Reference Range Interpretation Comments Monocytes (test code = Monocytes) 6.9 2.0-12.0 N [facility] CenterKwflorpDVOPSISDCL7975-18-73 10:02:00 Test Item Value Reference Range Interpretation Comments Eosinophils (test code = 2.0 See_Comment N [A utomated message] The Eosinophils) system which ge nerated this result tra nsmitted reference range : <=4.0. The reference r leo was not used to int erpret this result as normal/abnormal . [facility] CenterUvnexggSWTRCBYUJL7881-22-81 10:02:00 Test Item Value Reference Range Interpretation Comments Segs (test code = Segs) 55.8 45.0-75.0 N [facility] CenterDrtdxtbLYLQSPPVWW4871-38-61 10:02:00 Test Item Value Reference Range Interpretation Comments Lymphocytes (test code = Lymphocytes) 34.7 20.0-40.0 N [facility] CenterDbvufdgVMIVGINCBB1263-06-21 10:02:00 Test Item Value Reference Range Interpretation Comments PTT (test code = PTT) 32.2 s 22.9-35.8 N [facility] CenterEdfaqrgNBCWBFBHQG1899-76-13 10:02:00 Test Item Value Reference Range Interpretation Comments PT (test code = PT) 13.3 s 12.0-14.7 N [facility] CenterSjnutonMETXJIJTUI8584-43-74 10:02:00 Test Item Value Reference Range Interpretation Comments INR (test code = INR) 1.01 0.85-1.17 N [facility] CenterCaozqtuOVYRBZHWGS9289-54-29 10:02:00 Test Item Value Reference Range Interpretation Comments Hct (test code = Hct) 27.5 36.0-48.0 L [facility] CenterDabfoxnJIGGMSGPAQ2419-55-09 10:02:00 Test Item Value Reference Range Interpretation Comments RBC (test code = RBC) 3.34 4.20-5.40 L [facility] CenterUuwcjfiKCFWTQZBQC8380-30-30 10:02:00 Test Item Value Reference Range Interpretation Comments Hgb (test code = Hgb) 9.7 12.0-16.0 L [facility] CenterOuykbysQFCSJMGFPV6614-78-51 10:02:00 Test Item Value Reference Range Interpretation Comments WBC (test code = WBC) 5.0 3.7-10.4 N [facility] CenterKzifmbdDZHWAQEMSB6400-94-86 10:02:00 Test Item Value Reference Range Interpretation Comments MPV (test code = MPV) 9.2 7.4-10.4 N [facility] CenterDeygfddMUUUYSSYXD9545-37-24 10:02:00 Test Item Value Reference Range Interpretation Comments Platelet (test code = Platelet) 240 133-450 N [facility] CenterNvimdzsAIKWNCIGAJ4784-72-18 10:02:00 Test Item Value Reference Range Interpretation Comments RDW (test code = RDW) 14.3 11.5-14.5 N [facility] CenterSiqrczhBKKPWXSPQF9482-49-06 10:02:00 Test Item Value Reference Range Interpretation Comments MCHC (test code = MCHC) 35.2 32.0-36.0 N [facility] CenterLiigyfyTBDYHYYEAR7131-61-64 10:02:00 Test Item Value Reference Range Interpretation Comments MCH (test code = MCH) 28.9 pg 27.0-31.0 N [facility] CenterVamknsxROXLJJDMLV5962-60-58 10:02:00 Test Item Value Reference Range Interpretation Comments MCV (test code = MCV) 82.1 81.0-99.0 N [facility] HospitalUlqkluiUZNMNZIZX3391-50-20 10:02:00 Test Item Value Reference Range Interpretation Comments Chloride Lvl (test code = Chloride Lvl) 105 95-109 N [facility] HospitalRnoqxhxICGSPBCDB7148-86-02 10:02:00 Test Item Value Reference Range Interpretation Comments Potassium Lvl (test code = Potassium 4.1 3.5-5.1 N Lvl) [facility] HospitalOwlulsfAHSTGMFQV5043-94-85 10:02:00 Test Item Value Reference Range Interpretation Comments Sodium Lvl (test code = Sodium Lvl) 143 135-145 N [facility] HospitalQdfwfsjBAWUBCIOF4731-26-30 10:02:00 Test Item Value Reference Range Interpretation Comments CO2 (test code = CO2) 29 24-32 N [facility] HospitalMhldkufWBBCNBUQZ6971-75-37 10:02:00 Test Item Value Reference Range Interpretation Comments Calcium Lvl (test code = Calcium Lvl) 8.7 8.5-10.5 N [facility] HospitalUvitsyvZDRXCCSWX9721-54-32 10:02:00 Test Item Value Reference Range Interpretation Comments BUN (test code = BUN) 6 7-22 L [facility] HospitalSrffsbcRRFHSVQBA8887-73-55 10:02:00 Test Item Value Reference Range Interpretation Comments Creatinine Lvl (test code = Creatinine 0.6 0.5-1.4 N Lvl) [facility] HospitalKejwfopKOGYCMVAM8544-00-75 10:02:00 Test Item Value Reference Range Interpretation Comments Glucose Lvl (test code = Glucose Lvl) 118 [facility] HospitalXtqfkacOBNGXZRYQ3333-83-79 10:02:00 Test Item Value Reference Range Interpretation Comments AGAP (test code = AGAP) 13.1 10.0-20.0 [facility] CenterDgvdbugHYPSRHKZOS0788-81-08 10:02:00 Test Item Value Reference Range Interpretation Comments Basophils # (test code 0.0 See_Comment N [Aut omated message] The = Basophils #) system which generated this result tra nsmitted reference range : <=0.2. The reference r leo was not used to int erpret this result as normal/abnormal . [facility] CenterLpbayqsRPPKWXSCWK5444-95-93 10:02:00 Test Item Value Reference Range Interpretation Comments Monocytes # (test code 0.3 See_Comment N [Aut omated message] The = Monocytes #) system which generated this result tra nsmitted reference range : <=0.8. The reference r leo was not used to int erpret this result as normal/abnormal . [facility] CenterBbkqngdKGPMHCZQGI9755-32-25 10:02:00 Test Item Value Reference Range Interpretation Comments Eosinophils # (test code 0.1 See_Comment N [A utomated message] The = Eosinophils #) system whic h generated this result tra nsmitted reference range : <=0.5. The reference r leo was not used to int erpret this result as normal/abnormal . [facility] CenterYiolstrBKNBIPXGAH0825-76-94 10:02:00 Test Item Value Reference Range Interpretation Comments Segs-Bands # (test code = Segs-Bands #) 2.8 1.5-8.1 N [facility] CenterRskxtwuFFFNUVXXQR6120-56-55 10:02:00 Test Item Value Reference Range Interpretation Comments Lymphocytes # (test code = Lymphocytes 1.7 1.0-5.5 N #) [facility] CenterRzvvbohSYSABVGJYQ2452-95-66 10:02:00 Test Item Value Reference Range Interpretation Comments Basophils (test code = 0.6 See_Comment N [Aut omated message] The Basophils) system which ge nerated this result tra nsmitted reference range : <=1.0. The reference r leo was not used to int erpret this result as normal/abnormal . [facility] CenterPzqraodAXDWEMDVNP9936-80-46 10:02:00 Test Item Value Reference Range Interpretation Comments Monocytes (test code = Monocytes) 6.9 2.0-12.0 N [facility] CenterBhmfpmbQYBPITEDOO3496-78-56 10:02:00 Test Item Value Reference Range Interpretation Comments Eosinophils (test code = 2.0 See_Comment N [A utomated message] The Eosinophils) system which ge nerated this result tra nsmitted reference range : <=4.0. The reference r leo was not used to int erpret this result as normal/abnormal . [facility] CenterWvhlyiuOPZVFQEQMY9010-77-64 10:02:00 Test Item Value Reference Range Interpretation Comments Segs (test code = Segs) 55.8 45.0-75.0 N [facility] CenterEcutxjrGZAYZLOETT4239-09-66 10:02:00 Test Item Value Reference Range Interpretation Comments Lymphocytes (test code = Lymphocytes) 34.7 20.0-40.0 N [facility] CenterTlifqpfBIYFCANXAJ3293-35-39 10:02:00 Test Item Value Reference Range Interpretation Comments PTT (test code = PTT) 32.2 s 22.9-35.8 N [facility] CenterSmvzjmtPLWODVININ8334-47-99 10:02:00 Test Item Value Reference Range Interpretation Comments PT (test code = PT) 13.3 s 12.0-14.7 N [facility] CenterRqcmnzaBRGHAHQVCS2457-06-68 10:02:00 Test Item Value Reference Range Interpretation Comments INR (test code = INR) 1.01 0.85-1.17 N [facility] CenterDhgdacrMMRZNMUETM1055-98-08 10:02:00 Test Item Value Reference Range Interpretation Comments Hct (test code = Hct) 27.5 36.0-48.0 L [facility] CenterDkxqrcoFHDKGOUXLW5878-23-18 10:02:00 Test Item Value Reference Range Interpretation Comments RBC (test code = RBC) 3.34 4.20-5.40 L [facility] CenterAnvklrjHMGECGEWSO5958-67-42 10:02:00 Test Item Value Reference Range Interpretation Comments Hgb (test code = Hgb) 9.7 12.0-16.0 L [facility] CenterCyhktlcMGRUUPZLBN2945-06-15 10:02:00 Test Item Value Reference Range Interpretation Comments WBC (test code = WBC) 5.0 3.7-10.4 N [facility] CenterAcbgwydNBMWJMCKQA5890-90-68 10:02:00 Test Item Value Reference Range Interpretation Comments MPV (test code = MPV) 9.2 7.4-10.4 N [facility] CenterZjlvcthSVHOKMWBVZ0921-87-51 10:02:00 Test Item Value Reference Range Interpretation Comments Platelet (test code = Platelet) 240 133-450 N [facility] CenterDtwpbmbADRMWQGEJM4545-44-61 10:02:00 Test Item Value Reference Range Interpretation Comments RDW (test code = RDW) 14.3 11.5-14.5 N [facility] CenterExkpluaLMXHSEQPBG6963-18-12 10:02:00 Test Item Value Reference Range Interpretation Comments MCHC (test code = MCHC) 35.2 32.0-36.0 N [facility] CenterRxaxmitVQDYLTKFNN9147-19-96 10:02:00 Test Item Value Reference Range Interpretation Comments MCH (test code = MCH) 28.9 pg 27.0-31.0 N [facility] CenterOggkpqyETDNLDOLKO7293-10-55 10:02:00 Test Item Value Reference Range Interpretation Comments MCV (test code = MCV) 82.1 81.0-99.0 N [facility]JasakbmLEZVAYXMF1488-82-36 09:24:00 Test Item Value Reference Range Interpretation Comments Magnesium Lvl (test code = Magnesium 2.1 1.8-2.4 N Lvl) [facility] HospitalDtjamkaVAJXLYYFT5720-60-74 09:24:00 Test Item Value Reference Range Interpretation Comments Magnesium Lvl (test code = Magnesium 2.1 1.8-2.4 N Lvl) [facility] HospitalVbmejumHFHFIIOFX5813-92-18 09:24:00 Test Item Value Reference Range Interpretation Comments Magnesium Lvl (test code = Magnesium 2.1 1.8-2.4 N Lvl) [facility] HospitalSuzyuzlOHDGCUWJA0480-91-94 09:24:00 Test Item Value Reference Range Interpretation Comments Magnesium Lvl (test code = Magnesium 2.1 1.8-2.4 N Lvl) [facility] HospitalLpmexgwXCHVUAXHX8136-17-62 09:24:00 Test Item Value Reference Range Interpretation Comments Magnesium Lvl (test code = Magnesium 2.1 1.8-2.4 N Lvl) [facility]KvrhdzzRfcevgpgbrmp7290-24-51 00:32:00 Test Item Value Reference Range Interpretation Comments Culture: Aspirate/Body Fluid/Tissue (test code = Culture: Aspirate/Body Fluid/Tissue) [facility] HospitalMwrhaccBlkcuarzymcc3973-43-99 00:32:00 Test Item Value Reference Range Interpretation Comments Culture: Anaerobic (test code = Culture: Anaerobic) [facility] HospitalIlxoeydSffpgcvulnbr6491-58-64 00:32:00 Test Item Value Reference Range Interpretation Comments Culture: Aspirate/Body Fluid/Tissue (test code = Culture: Aspirate/Body Fluid/Tissue) [facility] HospitalEykqcjsFurvmsvjwjyb0342-03-82 00:32:00 Test Item Value Reference Range Interpretation Comments Culture: Anaerobic (test code = Culture: Anaerobic) [facility] HospitalDazxdzxOamiqdznouyh4867-98-91 00:32:00 Test Item Value Reference Range Interpretation Comments Culture: Aspirate/Body Fluid/Tissue (test code = Culture: Aspirate/Body Fluid/Tissue) [facility] HospitalWjreszuTrhrexfsvjjk5771-23-40 00:32:00 Test Item Value Reference Range Interpretation Comments Culture: Anaerobic (test code = Culture: Anaerobic) [facility] HospitalQnvzhnpEpglrctjsubj2051-99-58 00:32:00 Test Item Value Reference Range Interpretation Comments Culture: Aspirate/Body Fluid/Tissue (test code = Culture: Aspirate/Body Fluid/Tissue) [facility] HospitalCjdgaycIclhqoigrtyj4968-37-31 00:32:00 Test Item Value Reference Range Interpretation Comments Culture: Anaerobic (test code = Culture: Anaerobic) [facility] HospitalElldqwyOpdaufmfpyuo8208-30-74 00:32:00 Test Item Value Reference Range Interpretation Comments Culture: Aspirate/Body Fluid/Tissue (test code = Culture: Aspirate/Body Fluid/Tissue) [facility] HospitalKttjbmvPesbipocoqdv5094-70-32 00:32:00 Test Item Value Reference Range Interpretation Comments Culture: Anaerobic (test code = Culture: Anaerobic) [facility] HospitalTnixmhbNOOEYAYVL5341-72-85 17:10:00 Test Item Value Reference Range Interpretation Comments Temp Roberth (test code = Temp Roberth) 37.0 [facility] HospitalDoxoqujFNJROMMIV9856-32-00 17:10:00 Test Item Value Reference Range Interpretation Comments O2 Sat Roberth (test code = O2 Sat Roberth) 27.0 40.0-70.0 L [facility] HospitalKlterpzOXAFXFYIP0315-62-74 17:10:00 Test Item Value Reference Range Interpretation Comments pCO2 Roberth (test code = pCO2 Roberth) 47 38-52 N [facility] HospitalHobiplwFDEJXZSXV3967-41-13 17:10:00 Test Item Value Reference Range Interpretation Comments pH Roberth (test code = pH Roberth) 7.37 7.28-7.42 N [facility] HospitalGvhdaqnUTLZFMGBM4032-76-53 17:10:00 Test Item Value Reference Range Interpretation Comments BE Roberth (test code = 1 See_Comment N [Automa rohit message] The BE Roberth) system which ge nerated this result transmit rohit reference range : <=2. The reference range was not used to interpr et this result as reji l/abnormal. [facility] HospitalTewzhhzNDMUEYAOH8449-39-64 17:10:00 Test Item Value Reference Range Interpretation Comments HCO3 Roberth (test code = HCO3 Roberth) 27.2 22.0-26.0 H [facility] HospitalGgkuymxLNPOPYGEB7918-45-93 17:10:00 Test Item Value Reference Range Interpretation Comments pO2 Roberth (test code = pO2 Roberth) 19 20-49 L [facility] HospitalWhufjflYSPPUMGDH0677-35-74 17:10:00 Test Item Value Reference Range Interpretation Comments Temp Roberth (test code = Temp Roberth) 37.0 [facility] HospitalMifcntuQWVWSPHQM0247-09-60 17:10:00 Test Item Value Reference Range Interpretation Comments O2 Sat Roberth (test code = O2 Sat Roberth) 27.0 40.0-70.0 L [facility] HospitalTkaqwxqRNFNJKIMJ0291-82-01 17:10:00 Test Item Value Reference Range Interpretation Comments pCO2 Roberth (test code = pCO2 Roberth) 47 38-52 N [facility] HospitalPukjutdBEAEQSAPW7996-49-64 17:10:00 Test Item Value Reference Range Interpretation Comments pH Roberth (test code = pH Roberth) 7.37 7.28-7.42 N [facility] HospitalForauwwLTMYCSTPH3228-81-74 17:10:00 Test Item Value Reference Range Interpretation Comments BE Roberth (test code = 1 See_Comment N [Automa rohit message] The BE Roberth) system which ge nerated this result transmit rohit reference range : <=2. The reference range was not used to interpr et this result as reji l/abnormal. [facility] HospitalNfynjznKWTTXYZTJ8597-38-92 17:10:00 Test Item Value Reference Range Interpretation Comments HCO3 Roberth (test code = HCO3 Roberth) 27.2 22.0-26.0 H [facility] HospitalQrkytayEZKKEOROY7833-98-64 17:10:00 Test Item Value Reference Range Interpretation Comments pO2 Roberth (test code = pO2 Roberth) 19 20-49 L [facility] HospitalDtbnnylFTVEWLFGR9100-06-31 17:10:00 Test Item Value Reference Range Interpretation Comments Temp Roberth (test code = Temp Roberth) 37.0 [facility] HospitalPdlozurFPHXZFBOW6757-54-00 17:10:00 Test Item Value Reference Range Interpretation Comments O2 Sat Roberth (test code = O2 Sat Roberth) 27.0 40.0-70.0 L [facility] HospitalAmaerfdSWCNCBPKO1436-14-63 17:10:00 Test Item Value Reference Range Interpretation Comments pCO2 Roberth (test code = pCO2 Roberth) 47 38-52 N [facility] HospitalRqzijncEUQYMDFEQ4411-87-12 17:10:00 Test Item Value Reference Range Interpretation Comments pH Roberth (test code = pH Roberth) 7.37 7.28-7.42 N [facility] HospitalXiecxnaXOLKQDUUL0605-04-05 17:10:00 Test Item Value Reference Range Interpretation Comments BE Roberth (test code = 1 See_Comment N [Automa rohit message] The BE Roberth) system which ge nerated this result transmit rohit reference range : <=2. The reference range was not used to interpr et this result as reji l/abnormal. [facility] HospitalBbartziOPSPUADOX8155-75-77 17:10:00 Test Item Value Reference Range Interpretation Comments HCO3 Roberth (test code = HCO3 Roberth) 27.2 22.0-26.0 H [facility] HospitalZcvgcckGWCKLRTTA4213-19-83 17:10:00 Test Item Value Reference Range Interpretation Comments pO2 Roberth (test code = pO2 Roberth) 19 20-49 L [facility] HospitalVxfbbufDOWVXZYEF7602-63-48 17:10:00 Test Item Value Reference Range Interpretation Comments Temp Roberth (test code = Temp Roberth) 37.0 [facility] HospitalDkniqemDPRNDNDAF0105-49-89 17:10:00 Test Item Value Reference Range Interpretation Comments O2 Sat Roberth (test code = O2 Sat Roberth) 27.0 40.0-70.0 L [facility] HospitalWqlpxfyMFLYFONSP7784-93-26 17:10:00 Test Item Value Reference Range Interpretation Comments pCO2 Roberth (test code = pCO2 Roberth) 47 38-52 N [facility] HospitalWazhqdzILKWURVNB5411-50-07 17:10:00 Test Item Value Reference Range Interpretation Comments pH Roberth (test code = pH Roberth) 7.37 7.28-7.42 N [facility] HospitalKtdunytRPOBDPXAW7277-97-66 17:10:00 Test Item Value Reference Range Interpretation Comments BE Roberth (test code = 1 See_Comment N [Automa rohit message] The BE Roberth) system which ge nerated this result transmit rohit reference range : <=2. The reference range was not used to interpr et this result as reji l/abnormal. [facility] HospitalEfofzwgYXKALVTGM0568-68-70 17:10:00 Test Item Value Reference Range Interpretation Comments HCO3 Roberth (test code = HCO3 Roberth) 27.2 22.0-26.0 H [facility] HospitalYjrwlafPOJIWMEOE9262-10-13 17:10:00 Test Item Value Reference Range Interpretation Comments pO2 Roberth (test code = pO2 Roberth) 19 20-49 L [facility] HospitalXudwgpiHCHGSFBVE0847-83-38 17:10:00 Test Item Value Reference Range Interpretation Comments Temp Roberth (test code = Temp Roberth) 37.0 [facility] HospitalExbxadtJWFTEJOZS2257-33-65 17:10:00 Test Item Value Reference Range Interpretation Comments O2 Sat Roberth (test code = O2 Sat Roberth) 27.0 40.0-70.0 L [facility] HospitalRugdbicUEFBBQAGX8809-94-75 17:10:00 Test Item Value Reference Range Interpretation Comments pCO2 Roberth (test code = pCO2 Roberth) 47 38-52 N [facility] HospitalXqzkxycBWQNLDUOE4399-26-04 17:10:00 Test Item Value Reference Range Interpretation Comments pH Roberth (test code = pH Roberth) 7.37 7.28-7.42 N [facility] HospitalTucdvjaLYGWWOPUR4831-99-49 17:10:00 Test Item Value Reference Range Interpretation Comments BE Roberth (test code = 1 See_Comment N [Automa rohit message] The BE Roberth) system which ge nerated this result transmit rohit reference range : <=2. The reference range was not used to interpr et this result as reji l/abnormal. [facility] HospitalSalmzodNELPPPIJT9200-06-24 17:10:00 Test Item Value Reference Range Interpretation Comments HCO3 Roberth (test code = HCO3 Roberth) 27.2 22.0-26.0 H [facility] HospitalPkzachyWMBMPVWXM7527-94-45 17:10:00 Test Item Value Reference Range Interpretation Comments pO2 Roberth (test code = pO2 Roberth) 19 20-49 L [facility] HospitalMhgdnhaThkekjhzvqta0859-39-82 14:18:00 Test Item Value Reference Range Interpretation Comments Culture: Blood (test code = Culture: Blood) [facility] HospitalYhsonixLbqhsbziwmvi9376-95-98 14:18:00 Test Item Value Reference Range Interpretation Comments Culture: Wound/Abscess w/Gram Stain (test code = Culture: Wound/Abscess w/Gram Stain) [facility] HospitalWyrjfqyPmiddwqnhpuf6419-56-39 14:18:00 Test Item Value Reference Range Interpretation Comments Culture: Blood (test code = Culture: Blood) [facility] HospitalWpeiairIiajvjxhkdcb3236-23-99 14:18:00 Test Item Value Reference Range Interpretation Comments Culture: Wound/Abscess w/Gram Stain (test code = Culture: Wound/Abscess w/Gram Stain) [facility] HospitalNpcncbgZtfvesnljcar6225-35-57 14:18:00 Test Item Value Reference Range Interpretation Comments Culture: Blood (test code = Culture: Blood) [facility] HospitalXxrupaoWwerkzftzagu3998-04-24 14:18:00 Test Item Value Reference Range Interpretation Comments Culture: Wound/Abscess w/Gram Stain (test code = Culture: Wound/Abscess w/Gram Stain) [facility] HospitalPvzggzdRzgrgpponryb5414-16-35 14:18:00 Test Item Value Reference Range Interpretation Comments Culture: Blood (test code = Culture: Blood) [facility] HospitalXpjvuszQqkvcuxjtema4604-38-23 14:18:00 Test Item Value Reference Range Interpretation Comments Culture: Wound/Abscess w/Gram Stain (test code = Culture: Wound/Abscess w/Gram Stain) [facility] HospitalAzojwyrMcrecjqtzxam1439-54-32 14:18:00 Test Item Value Reference Range Interpretation Comments Culture: Blood (test code = Culture: Blood) [facility] HospitalLpvqhvjTuruyuugivlt9849-19-10 14:18:00 Test Item Value Reference Range Interpretation Comments Culture: Wound/Abscess w/Gram Stain (test code = Culture: Wound/Abscess w/Gram Stain) [facility] HospitalGitwbouBHUIGNVCD7340-45-35 13:09:00 Test Item Value Reference Range Interpretation Comments Lactic Acid Lvl (test code = Lactic 1.0 0.5-2.2 N Acid Lvl) [facility] HospitalVxrfbgdKKGVTYGMT6652-41-64 13:09:00 Test Item Value Reference Range Interpretation Comments Lactic Acid Lvl (test code = Lactic 1.0 0.5-2.2 N Acid Lvl) [facility] HospitalUxflcruRQDWAJLAC2421-31-94 13:09:00 Test Item Value Reference Range Interpretation Comments Lactic Acid Lvl (test code = Lactic 1.0 0.5-2.2 N Acid Lvl) [facility] HospitalTyulfdrNQFLRZZDV1107-43-77 13:09:00 Test Item Value Reference Range Interpretation Comments Lactic Acid Lvl (test code = Lactic 1.0 0.5-2.2 N Acid Lvl) [facility] HospitalFnlcnxxDKTNTUGYC6418-61-80 13:09:00 Test Item Value Reference Range Interpretation Comments Lactic Acid Lvl (test code = Lactic 1.0 0.5-2.2 N Acid Lvl) [facility] HospitalRccmkygMDLBYAZDR9247-42-98 12:20:00 Test Item Value Reference Range Interpretation Comments U Preg (test code = U Negative (09/01/2011 N Preg) 07:20:00) [facility]UrgicpmWEKEECGONM6750-19-33 12:20:00 Test Item Value Reference Range Interpretation Comments UA Sq Epi (test code Occasional /LPF N = UA Sq Epi) (09/01/2011 07:20:00) [facility]woodQhgiikiSVIMRXGMQX5932-19-67 12:20:00 Test Item Value Reference Range Interpretation Comments UA Leuk Est (test Negative (09/01/2011 N code = UA Leuk Est) 07:20:00) [facility]woodFdvccrxLZJUFNZAQY2104-61-54 12:20:00 Test Item Value Reference Range Interpretation Comments UA Nitrite (test code Negative (09/01/2011 N = UA Nitrite) 07:20:00) [facility]woodXekllhhIHDGAZMONZ1865-78-59 12:20:00 Test Item Value Reference Range Interpretation Comments UA Urobilinogen (test code = UA 0.2 0.1-1.0 N Urobilinogen) [facility]woodMahxiypHFYPRGPEZS9538-24-55 12:20:00 Test Item Value Reference Range Interpretation Comments UA Blood (test code = Negative (09/01/2011 N UA Blood) 07:20:00) [facility] NorthwestKusrekiEGKKRWGWFF1240-26-45 12:20:00 Test Item Value Reference Range Interpretation Comments UA Ketones (test code = >=80 mg/dL A UA Ketones) *ABN*(09/01/2011 07:20:00) [facility] CenterJyrswuwLKQOXMEJZL9982-34-23 12:20:00 Test Item Value Reference Range Interpretation Comments UA Protein (test code Negative (09/01/2011 N = UA Protein) 07:20:00) [facility] NorthwestLvopupqQUGRBHKVRY4367-43-94 12:20:00 Test Item Value Reference Range Interpretation Comments UA pH (test code = UA pH) 6.0 1 5.0-8.0 N [facility] CenterTopkkpaKETDTNGHUP3737-37-10 12:20:00 Test Item Value Reference Range Interpretation Comments UA Bili (test code = Negative (09/01/2011 N UA Bili) 07:20:00) [facility] NorthwestIcelqohCTPWYXTURI7136-55-99 12:20:00 Test Item Value Reference Range Interpretation Comments UA Glucose (test code = >=1000 mg/dL A UA Glucose) *ABN*(09/01/2011 07:20:00) [facility] NorthwestJcunsmaBDEUKUJWSD9407-48-95 12:20:00 Test Item Value Reference Range Interpretation Comments UA Spec Grav (test code = UA Spec 1.035 1 H Grav) [facility] CenterIoslgaiBLVNIYJUZF5860-95-10 12:20:00 Test Item Value Reference Range Interpretation Comments UA Turbidity (test code = Clear (09/01/2011 N UA Turbidity) 07:20:00) [facility] NorthwestJmgbwalKBDKHDBFGT5925-42-54 12:20:00 Test Item Value Reference Range Interpretation Comments UA Color (test code = Yellow *NA*(09/01/2011 UA Color) 07:20:00) [facility] CenterNyftfvaDSEDAWWNP8457-28-24 12:20:00 Test Item Value Reference Range Interpretation Comments U Preg (test code = U Negative (09/01/2011 N Preg) 07:20:00) [facility] NorthwestPcsagcsKBQUVCQXZL4095-33-49 12:20:00 Test Item Value Reference Range Interpretation Comments UA Sq Epi (test code Occasional /LPF N = UA Sq Epi) (09/01/2011 07:20:00) [facility] NorthwestGooehapOHJZZZKJLJ6184-75-07 12:20:00 Test Item Value Reference Range Interpretation Comments UA Leuk Est (test Negative (09/01/2011 N code = UA Leuk Est) 07:20:00) [facility] CenterFtcrcpaEFZDIOYSCF3597-53-42 12:20:00 Test Item Value Reference Range Interpretation Comments UA Nitrite (test code Negative (09/01/2011 N = UA Nitrite) 07:20:00) [facility] NorthwestQlcovgoOPKSVRRRSY6881-90-94 12:20:00 Test Item Value Reference Range Interpretation Comments UA Urobilinogen (test code = UA 0.2 0.1-1.0 N Urobilinogen) [facility] NorthwestBbvfxieEKUDHDPKQL1672-56-72 12:20:00 Test Item Value Reference Range Interpretation Comments UA Blood (test code = Negative (09/01/2011 N UA Blood) 07:20:00) [facility] NorthwestCcyzggjQGSQBOJZVK9313-62-78 12:20:00 Test Item Value Reference Range Interpretation Comments UA Ketones (test code = >=80 mg/dL A UA Ketones) *ABN*(09/01/2011 07:20:00) [facility] NorthwestDkeyheqVYNSXJUVTM9317-36-52 12:20:00 Test Item Value Reference Range Interpretation Comments UA Protein (test code Negative (09/01/2011 N = UA Protein) 07:20:00) [facility] NorthwestMxmvckzTDCFDUXCMM8589-28-91 12:20:00 Test Item Value Reference Range Interpretation Comments UA pH (test code = UA pH) 6.0 1 5.0-8.0 N [facility] NorthwestIjaoqqiTXOCPERRHV4146-65-48 12:20:00 Test Item Value Reference Range Interpretation Comments UA Bili (test code = Negative (09/01/2011 N UA Bili) 07:20:00) [facility] NorthwestMtimhgkBVSINOTAQN8047-89-02 12:20:00 Test Item Value Reference Range Interpretation Comments UA Glucose (test code = >=1000 mg/dL A UA Glucose) *ABN*(09/01/2011 07:20:00) [facility] NorthwestGwthynnWAGHBCWPJL4837-07-18 12:20:00 Test Item Value Reference Range Interpretation Comments UA Spec Grav (test code = UA Spec 1.035 1 H Grav) [facility] NorthwestWkielleJXKKOXJMSI2287-94-22 12:20:00 Test Item Value Reference Range Interpretation Comments UA Turbidity (test code = Clear (09/01/2011 N UA Turbidity) 07:20:00) [facility] NorthwestYdsoutuHOBPZNRPVG3693-62-65 12:20:00 Test Item Value Reference Range Interpretation Comments UA Color (test code = Yellow *NA*(09/01/2011 UA Color) 07:20:00) [facility] CenterZkcocjhETTPGWRCD7922-05-28 12:20:00 Test Item Value Reference Range Interpretation Comments U Preg (test code = U Negative (09/01/2011 N Preg) 07:20:00) [facility] CenterIxozopoDGHDKCOBIK8008-29-45 12:20:00 Test Item Value Reference Range Interpretation Comments UA Sq Epi (test code Occasional /LPF N = UA Sq Epi) (09/01/2011 07:20:00) [facility] CenterAdgphnfIJJHAZQMCI4260-49-63 12:20:00 Test Item Value Reference Range Interpretation Comments UA Leuk Est (test Negative (09/01/2011 N code = UA Leuk Est) 07:20:00) [facility] CenterRwnlgsoBHTQBTWTHQ6063-57-68 12:20:00 Test Item Value Reference Range Interpretation Comments UA Nitrite (test code Negative (09/01/2011 N = UA Nitrite) 07:20:00) [facility] CenterDojlitgMXZFSNFXWT8411-16-51 12:20:00 Test Item Value Reference Range Interpretation Comments UA Urobilinogen (test code = UA 0.2 0.1-1.0 N Urobilinogen) [facility] CenterOknjovuCIBWDHOPNV5564-50-95 12:20:00 Test Item Value Reference Range Interpretation Comments UA Blood (test code = Negative (09/01/2011 N UA Blood) 07:20:00) [facility] CenterFplanuwMFRLTNGUBR0004-61-08 12:20:00 Test Item Value Reference Range Interpretation Comments UA Ketones (test code = >=80 mg/dL A UA Ketones) *ABN*(09/01/2011 07:20:00) [facility] [facility] CenterDanklyeKNYXTXWWQS3457-66-77 12:20:00 Test Item Value Reference Range Interpretation Comments UA Protein (test code Negative (09/01/2011 N = UA Protein) 07:20:00) [facility]VzombfnFKDNYHVJLT4487-99-04 12:20:00 Test Item Value Reference Range Interpretation Comments UA pH (test code = UA pH) 6.0 1 5.0-8.0 N [facility] CenterWvxuiywNCEBRERUGH8253-58-87 12:20:00 Test Item Value Reference Range Interpretation Comments UA Bili (test code = Negative (09/01/2011 N UA Bili) 07:20:00) [facility] JeitannZMKNKWUJTN6938-82-42 12:20:00 Test Item Value Reference Range Interpretation Comments UA Glucose (test code = >=1000 mg/dL A UA Glucose) *ABN*(09/01/2011 07:20:00) [facility] CenterRrudgtnCSQEAGNWQL4190-21-20 12:20:00 Test Item Value Reference Range Interpretation Comments UA Spec Grav (test code = UA Spec 1.035 1 H Grav) [facility] CenterWmjnhwrKKQJRHQXUD0398-04-41 12:20:00 Test Item Value Reference Range Interpretation Comments UA Turbidity (test code = Clear (09/01/2011 N UA Turbidity) 07:20:00) [facility] CenterXusxfwsYQYOZUROQH9168-44-80 12:20:00 Test Item Value Reference Range Interpretation Comments UA Color (test code = Yellow *NA*(09/01/2011 UA Color) 07:20:00) [facility] CenterYehomeiVNHZEMTAN0193-07-56 12:20:00 Test Item Value Reference Range Interpretation Comments U Preg (test code = U Negative (09/01/2011 N Preg) 07:20:00) [facility] CenterXfgcgmcIUAIDPQNUS5658-76-46 12:20:00 Test Item Value Reference Range Interpretation Comments UA Sq Epi (test code Occasional /LPF N = UA Sq Epi) (09/01/2011 07:20:00) [facility] CenterAivdwwpGNSZVHJYLQ4148-36-69 12:20:00 Test Item Value Reference Range Interpretation Comments UA Leuk Est (test Negative (09/01/2011 N code = UA Leuk Est) 07:20:00) [facility] BvmajtuWBBVKNSVCN7328-48-30 12:20:00 Test Item Value Reference Range Interpretation Comments UA Nitrite (test code Negative (09/01/2011 N = UA Nitrite) 07:20:00) [facility] CenterOphkdtzFZOWSZKCUK7403-88-36 12:20:00 Test Item Value Reference Range Interpretation Comments UA Urobilinogen (test code = UA 0.2 0.1-1.0 N Urobilinogen) [facility] CenterKxwkyrmPRBJVRIUDW6036-74-97 12:20:00 Test Item Value Reference Range Interpretation Comments UA Blood (test code = Negative (09/01/2011 N UA Blood) 07:20:00) [facility] CenterYdyitjmQQREVWDWGB1248-95-82 12:20:00 Test Item Value Reference Range Interpretation Comments UA Ketones (test code = >=80 mg/dL A UA Ketones) *ABN*(09/01/2011 07:20:00) [facility] NorthwestCzamcmcXLNEXKSTWJ1581-48-91 12:20:00 Test Item Value Reference Range Interpretation Comments UA Protein (test code Negative (09/01/2011 N = UA Protein) 07:20:00) [facility] NorthwestPxgmnctURAEWSRJCV6441-45-38 12:20:00 Test Item Value Reference Range Interpretation Comments UA pH (test code = UA pH) 6.0 1 5.0-8.0 N [facility] NorthwestTbypzhuWAOSMRALLM5697-07-20 12:20:00 Test Item Value Reference Range Interpretation Comments UA Bili (test code = Negative (09/01/2011 N UA Bili) 07:20:00) [facility] NorthwestJhbeglmUPWPYEVBYF1436-10-96 12:20:00 Test Item Value Reference Range Interpretation Comments UA Glucose (test code = >=1000 mg/dL A UA Glucose) *ABN*(09/01/2011 07:20:00) [facility] NorthwestVxjlpclZWUTDTLSLH2608-28-64 12:20:00 Test Item Value Reference Range Interpretation Comments UA Spec Grav (test code = UA Spec 1.035 1 H Grav) [facility] NorthwestAbyilmkWOSULCGXJR4555-41-22 12:20:00 Test Item Value Reference Range Interpretation Comments UA Turbidity (test code = Clear (09/01/2011 N UA Turbidity) 07:20:00) [facility] CenterSaaeljrLJDLGGJETI6949-50-24 12:20:00 Test Item Value Reference Range Interpretation Comments UA Color (test code = Yellow *NA*(09/01/2011 UA Color) 07:20:00) [facility] CenterVliqqgtNTOWMIUSU5930-40-40 12:20:00 Test Item Value Reference Range Interpretation Comments U Preg (test code = U Negative (09/01/2011 N Preg) 07:20:00) [facility] NorthwestTqgmsrpEKXIQUIHYA9226-40-78 12:20:00 Test Item Value Reference Range Interpretation Comments UA Sq Epi (test code Occasional /LPF N = UA Sq Epi) (09/01/2011 07:20:00) [facility] NorthwestYvekmazLDAYOFKUWQ6541-03-52 12:20:00 Test Item Value Reference Range Interpretation Comments UA Leuk Est (test Negative (09/01/2011 N code = UA Leuk Est) 07:20:00) [facility] NorthwestAtmuvldJEAIFBQEJE5205-22-38 12:20:00 Test Item Value Reference Range Interpretation Comments UA Nitrite (test code Negative (09/01/2011 N = UA Nitrite) 07:20:00) [facility] NorthwestKrfjkfmGEEDSUURGB6432-94-12 12:20:00 Test Item Value Reference Range Interpretation Comments UA Urobilinogen (test code = UA 0.2 0.1-1.0 N Urobilinogen) [facility] NorthwestUgayabhHRVTLYQAJH8889-36-17 12:20:00 Test Item Value Reference Range Interpretation Comments UA Blood (test code = Negative (09/01/2011 N UA Blood) 07:20:00) [facility]XgmpnnyBAUCXUKTLH0757-57-77 12:20:00 Test Item Value Reference Range Interpretation Comments UA Ketones (test code = >=80 mg/dL A UA Ketones) *ABN*(09/01/2011 07:20:00) [facility]woodOuypociJXZRRMREIW4349-27-36 12:20:00 Test Item Value Reference Range Interpretation Comments UA Protein (test code Negative (09/01/2011 N = UA Protein) 07:20:00) [facility]woodAiqwjeeWZDEKAQPHE3355-27-61 12:20:00 Test Item Value Reference Range Interpretation Comments UA pH (test code = UA pH) 6.0 1 5.0-8.0 N [facility] NorthwestGhmatglXHZTJSIGMY3459-53-79 12:20:00 Test Item Value Reference Range Interpretation Comments UA Bili (test code = Negative (09/01/2011 N UA Bili) 07:20:00) [facility] NorthwestBcvnqffIBFVGHFEVC9747-95-17 12:20:00 Test Item Value Reference Range Interpretation Comments UA Glucose (test code = >=1000 mg/dL A UA Glucose) *ABN*(09/01/2011 07:20:00) [facility] NorthwestUbzgqlyFKCFOWQABW4977-33-26 12:20:00 Test Item Value Reference Range Interpretation Comments UA Spec Grav (test code = UA Spec 1.035 1 H Grav) [facility] NorthwestGertcrkRHGHXANDRV6255-46-28 12:20:00 Test Item Value Reference Range Interpretation Comments UA Turbidity (test code = Clear (09/01/2011 N UA Turbidity) 07:20:00) [facility]woodBzkgyksXXGLUTVRGS6162-57-15 12:20:00 Test Item Value Reference Range Interpretation Comments UA Color (test code = Yellow *NA*(09/01/2011 UA Color) 07:20:00) [facility]RycncgkFWHIAIZOF7945-37-34 08:00:00 Test Item Value Reference Range Interpretation Comments Lactic Acid Lvl (test code = Lactic 2.8 0.5-2.2 H Acid Lvl) [facility] HospitalVutorkoAJDYODTID0005-18-64 08:00:00 Test Item Value Reference Range Interpretation Comments Lactic Acid Lvl (test code = Lactic 2.8 0.5-2.2 H Acid Lvl) [facility] HospitalOnabugeNENMIMXXK4444-21-08 08:00:00 Test Item Value Reference Range Interpretation Comments Lactic Acid Lvl (test code = Lactic 2.8 0.5-2.2 H Acid Lvl) [facility] HospitalIhghejxZWELFGHAJ6770-22-99 08:00:00 Test Item Value Reference Range Interpretation Comments Lactic Acid Lvl (test code = Lactic 2.8 0.5-2.2 H Acid Lvl) [facility] HospitalZddlmctGMFRUHLIW9920-20-82 08:00:00 Test Item Value Reference Range Interpretation Comments Lactic Acid Lvl (test code = Lactic 2.8 0.5-2.2 H Acid Lvl) [facility] HospitalMedtwwaCJIQNEOVV4025-89-91 07:47:00 Test Item Value Reference Range Interpretation Comments Magnesium Lvl (test code = Magnesium 1.5 1.8-2.4 L Lvl) [facility]EgkafieWZHSRFTWBB0189-30-62 07:47:00 Test Item Value Reference Range Interpretation Comments Polychrom (test code = Slight (09/01/2011 N Polychrom) 02:47:00) [facility] CenterAnhtsboYJXZGLBQXM2688-17-55 07:47:00 Test Item Value Reference Range Interpretation Comments Anisocyte (test code = 1+ *ABN*(09/01/2011 A Anisocyte) 02:47:00) [facility] CenterIjwbnfyXUDJIVGIOK8745-45-95 07:47:00 Test Item Value Reference Range Interpretation Comments Large Plt (test code = Slight *ABN*(09/01/2011 A Large Plt) 02:47:00) [facility] CenterZsjgsypMLKXPJWYXR4095-71-73 07:47:00 Test Item Value Reference Range Interpretation Comments Tear Cell (test code = Tear Cell) [facility] CenterTiskdwoGPQSSFAAVW9574-28-45 07:47:00 Test Item Value Reference Range Interpretation Comments Elliptocyte (test code = Slight A Elliptocyte) *ABN*(09/01/2011 02:47:00) [facility] HospitalYulcxgzUOGBKSYFF6593-26-59 07:47:00 Test Item Value Reference Range Interpretation Comments Magnesium Lvl (test code = Magnesium 1.5 1.8-2.4 L Lvl) [facility] CenterPxabyakAUPQLTMCAQ5143-31-10 07:47:00 Test Item Value Reference Range Interpretation Comments Polychrom (test code = Slight (09/01/2011 N Polychrom) 02:47:00) [facility] CenterAkslhcaMJSEAUQPTM0470-78-61 07:47:00 Test Item Value Reference Range Interpretation Comments Anisocyte (test code = 1+ *ABN*(09/01/2011 A Anisocyte) 02:47:00) [facility] CenterHuvdtpiPIOIEUWGRE4025-77-15 07:47:00 Test Item Value Reference Range Interpretation Comments Large Plt (test code = Slight *ABN*(09/01/2011 A Large Plt) 02:47:00) [facility] CenterXxesvauDUQBBQMGFC6088-84-95 07:47:00 Test Item Value Reference Range Interpretation Comments Tear Cell (test code = Tear Cell) [facility] CenterDnaoxhgYMOZMAZQUW6214-58-15 07:47:00 Test Item Value Reference Range Interpretation Comments Elliptocyte (test code = Slight A Elliptocyte) *ABN*(09/01/2011 02:47:00) [facility] HospitalOsladybTDKQZGEEX0751-45-83 07:47:00 Test Item Value Reference Range Interpretation Comments Magnesium Lvl (test code = Magnesium 1.5 1.8-2.4 L Lvl) [facility] CenterKhjfqjlJSSUZJBCVL9655-04-60 07:47:00 Test Item Value Reference Range Interpretation Comments Polychrom (test code = Slight (09/01/2011 N Polychrom) 02:47:00) [facility] CenterHyvacxdJXEZCDZDWD7467-94-06 07:47:00 Test Item Value Reference Range Interpretation Comments Anisocyte (test code = 1+ *ABN*(09/01/2011 A Anisocyte) 02:47:00) [facility] CenterJvpewmzSOHUUIJNZG1586-33-74 07:47:00 Test Item Value Reference Range Interpretation Comments Large Plt (test code = Slight *ABN*(09/01/2011 A Large Plt) 02:47:00) [facility] CenterNdzbxyiZDUDFMWVME9770-78-09 07:47:00 Test Item Value Reference Range Interpretation Comments Tear Cell (test code = Tear Cell) [facility] CenterAmkegeuKZRTYUBQSM7447-80-58 07:47:00 Test Item Value Reference Range Interpretation Comments Elliptocyte (test code = Slight A Elliptocyte) *ABN*(09/01/2011 02:47:00) [facility] HospitalNqehxapQHWLDDWBR0938-08-79 07:47:00 Test Item Value Reference Range Interpretation Comments Magnesium Lvl (test code = Magnesium 1.5 1.8-2.4 L Lvl) [facility] CenterJacasbjTICRZCMYIR9673-45-80 07:47:00 Test Item Value Reference Range Interpretation Comments Polychrom (test code = Slight (09/01/2011 N Polychrom) 02:47:00) [facility] CenterIelmqsoUICHFPLAAN1252-44-76 07:47:00 Test Item Value Reference Range Interpretation Comments Anisocyte (test code = 1+ *ABN*(09/01/2011 A Anisocyte) 02:47:00) [facility] CenterFrxbjvbSXYXIXVJNJ3843-84-53 07:47:00 Test Item Value Reference Range Interpretation Comments Large Plt (test code = Slight *ABN*(09/01/2011 A Large Plt) 02:47:00) [facility] CenterGlbigftYPKARBZKIF1837-81-23 07:47:00 Test Item Value Reference Range Interpretation Comments Tear Cell (test code = Tear Cell) [facility] CenterVtfsxpiPFWCRLLHSM8023-91-50 07:47:00 Test Item Value Reference Range Interpretation Comments Elliptocyte (test code = Slight A Elliptocyte) *ABN*(09/01/2011 02:47:00) [facility] HospitalMmoqjzmOWCPTYBHU6640-23-18 07:47:00 Test Item Value Reference Range Interpretation Comments Magnesium Lvl (test code = Magnesium 1.5 1.8-2.4 L Lvl) [facility] CenterLkloyagZSYCIOFXEM3986-28-00 07:47:00 Test Item Value Reference Range Interpretation Comments Polychrom (test code = Slight (09/01/2011 N Polychrom) 02:47:00) [facility] CenterClheoyoLVONCAKEPC2403-94-41 07:47:00 Test Item Value Reference Range Interpretation Comments Anisocyte (test code = 1+ *ABN*(09/01/2011 A Anisocyte) 02:47:00) [facility] CenterLrqctchYOUWMVZNUL5828-39-70 07:47:00 Test Item Value Reference Range Interpretation Comments Large Plt (test code = Slight *ABN*(09/01/2011 A Large Plt) 02:47:00) [facility] CenterPlvomlpSHCMUDPITE1031-03-00 07:47:00 Test Item Value Reference Range Interpretation Comments Tear Cell (test code = Tear Cell) [facility] CenterQsmovluVNANWWLGLP3935-93-68 07:47:00 Test Item Value Reference Range Interpretation Comments Elliptocyte (test code = Slight A Elliptocyte) *ABN*(09/01/2011 02:47:00) [facility] GLUCOSE [id number] 17:02:00 Test Item Value Reference Range Interpretation Comments Comment1 (test code = Comment1) Notify RN/ [facility] GLUCOSE [id number] 17:02:00 Test Item Value Reference Range Interpretation Comments Gluc POC Lifscn (test code = Gluc POC 134 65-110 H Lifscn) [facility] GLUCOSE UDRQYRH8258-11-02 17:02:00 Test Item Value Reference Range Interpretation Comments Comment1 (test code = Comment1) Notify RN/ [facility] GLUCOSE VKGPYBS9821-05-93 17:02:00 Test Item Value Reference Range Interpretation Comments Gluc POC Lifscn (test code = Gluc POC 134 65-110 H Lifscn) [facility] GLUCOSE [id number] 17:02:00 Test Item Value Reference Range Interpretation Comments Comment1 (test code = Comment1) Notify RN/ [facility] GLUCOSE [id number] 17:02:00 Test Item Value Reference Range Interpretation Comments Gluc POC Lifscn (test code = Gluc POC 134 65-110 H Lifscn) [facility] GLUCOSE [id number] 17:02:00 Test Item Value Reference Range Interpretation Comments Comment1 (test code = Comment1) Notify RN/ [facility] GLUCOSE [id number] 17:02:00 Test Item Value Reference Range Interpretation Comments Gluc POC Lifscn (test code = Gluc POC 134 65-110 H Lifscn) [facility] GLUCOSE VMYENUY6899-14-17 17:02:00 Test Item Value Reference Range Interpretation Comments Comment1 (test code = Comment1) Notify RN/ [facility] GLUCOSE [id number] 17:02:00 Test Item Value Reference Range Interpretation Comments Gluc POC Lifscn (test code = Gluc POC 134 65-110 H Lifscn) [facility] GLUCOSE [id number] 13:45:00 Test Item Value Reference Range Interpretation Comments Gluc POC Lifscn (test code = Gluc POC 182 65-110 H Lifscn) [facility] GLUCOSE [id number] 13:45:00 Test Item Value Reference Range Interpretation Comments Comment1 (test code = Comment1) Notify TABATHA/ [facility] GLUCOSE [id number] 13:45:00 Test Item Value Reference Range Interpretation Comments Gluc POC Lifscn (test code = Gluc POC 182 65-110 H Lifscn) [facility] GLUCOSE [id number] 13:45:00 Test Item Value Reference Range Interpretation Comments Comment1 (test code = Comment1) Notify TABATHA/ [facility] GLUCOSE [id number] 13:45:00 Test Item Value Reference Range Interpretation Comments Gluc POC Lifscn (test code = Gluc POC 182 65-110 H Lifscn) [facility] GLUCOSE VDRFPBX3875-07-49 13:45:00 Test Item Value Reference Range Interpretation Comments Comment1 (test code = Comment1) Notify RN/ [facility] GLUCOSE [id number] 13:45:00 Test Item Value Reference Range Interpretation Comments Gluc POC Lifscn (test code = Gluc POC 182 65-110 H Lifscn) [facility] GLUCOSE ILZKNVW8425-11-58 13:45:00 Test Item Value Reference Range Interpretation Comments Comment1 (test code = Comment1) Notify TABATHA/ [facility] GLUCOSE [id number] 13:45:00 Test Item Value Reference Range Interpretation Comments Gluc POC Lifscn (test code = Gluc POC 182 65-110 H Lifscn) [facility] GLUCOSE [id number] 13:45:00 Test Item Value Reference Range Interpretation Comments Comment1 (test code = Comment1) Ravi RN/MD [facility]XcwazvkXZCJNHZIW8166-16-74 10:22:00 Test Item Value Reference Range Interpretation Comments Phosphorus (test code = Phosphorus) 3.0 2.5-4.5 N [facility] HospitalSsyjiutIJUWYHGIF8953-89-82 10:22:00 Test Item Value Reference Range Interpretation Comments Magnesium Lvl (test code = Magnesium 1.8 1.8-2.4 N Lvl) [facility] HospitalNbipcntNPQRVSJLQ2278-87-97 10:22:00 Test Item Value Reference Range Interpretation Comments Chloride Lvl (test code = Chloride Lvl) 107 95-109 N [facility] HospitalCbyyfzgYBMPEPLWC7036-39-60 10:22:00 Test Item Value Reference Range Interpretation Comments Potassium Lvl (test code = Potassium 3.0 3.5-5.1 A Lvl) [facility] HospitalVrzcdrxBDXEKFQGM0198-03-66 10:22:00 Test Item Value Reference Range Interpretation Comments Sodium Lvl (test code = Sodium Lvl) 141 135-145 N [facility] HospitalThtqnesZBJEOIRWO4018-46-09 10:22:00 Test Item Value Reference Range Interpretation Comments Creatinine Lvl (test code = Creatinine 0.6 0.5-1.4 N Lvl) [facility] HospitalXaggjxoLIFGQCDZU4326-56-77 10:22:00 Test Item Value Reference Range Interpretation Comments CO2 (test code = CO2) 23 24-32 L [facility] HospitalOmtxelnIKBEICFPW9230-63-67 10:22:00 Test Item Value Reference Range Interpretation Comments Calcium Lvl (test code = Calcium Lvl) 7.3 8.5-10.5 L [facility] HospitalYrpzftxLSXXGXYRP3207-05-63 10:22:00 Test Item Value Reference Range Interpretation Comments Glucose Lvl (test code = Glucose Lvl) 136 [facility] HospitalHjdmrlzZARZPJGKR2188-17-45 10:22:00 Test Item Value Reference Range Interpretation Comments AGAP (test code = AGAP) 14.0 10.0-20.0 N [facility] HospitalXdgaxcsZCCJMWAUC3013-43-22 10:22:00 Test Item Value Reference Range Interpretation Comments BUN (test code = BUN) 5 7-22 L [facility]KraykrrHSJLEVOYRD0155-64-53 10:22:00 Test Item Value Reference Range Interpretation Comments Segs (test code = Segs) 69.6 45.0-75.0 N [facility] CenterPeufxyvAUJCQNEFZK0801-48-67 10:22:00 Test Item Value Reference Range Interpretation Comments Lymphocytes (test code = Lymphocytes) 21.5 20.0-40.0 N [facility] CenterAtwgbxeOIHITJHQIV0955-36-14 10:22:00 Test Item Value Reference Range Interpretation Comments Monocytes (test code = Monocytes) 7.6 2.0-12.0 N [facility] CenterXeoctzoKHAJEVTYEJ7696-25-87 10:22:00 Test Item Value Reference Range Interpretation Comments Eosinophils (test code = 1.0 See_Comment N [A utomated message] The Eosinophils) system which ge nerated this result tra nsmitted reference range : <=4.0. The reference r leo was not used to int erpret this result as normal/abnormal . [facility] CenterTbzehelINKDSRVQWH6633-89-83 10:22:00 Test Item Value Reference Range Interpretation Comments Basophils (test code = 0.3 See_Comment N [Aut omated message] The Basophils) system which ge nerated this result tra nsmitted reference range : <=1.0. The reference r leo was not used to int erpret this result as normal/abnormal . [facility] CenterCiqxkqwKKNPHLWQHS5605-88-72 10:22:00 Test Item Value Reference Range Interpretation Comments Segs-Bands # (test code = Segs-Bands #) 4.8 1.5-8.1 N [facility] CenterDdyzaxfUFRFEMVYGT3125-38-10 10:22:00 Test Item Value Reference Range Interpretation Comments Eosinophils # (test code 0.1 See_Comment N [A utomated message] The = Eosinophils #) system ic h generated this result tra nsmitted reference range : <=0.5. The reference r leo was not used to int erpret this result as normal/abnormal . [facility] CenterQykgeezRVSNMALLKW7680-99-35 10:22:00 Test Item Value Reference Range Interpretation Comments Lymphocytes # (test code = Lymphocytes 1.5 1.0-5.5 N #) [facility] CenterPochupbMROUZBRQVL6424-03-09 10:22:00 Test Item Value Reference Range Interpretation Comments Monocytes # (test code 0.5 See_Comment N [Aut omated message] The = Monocytes #) system which generated this result tra nsmitted reference range : <=0.8. The reference r leo was not used to int erpret this result as normal/abnormal . [facility] CenterNxirsitRJVWEXBWFY2008-06-77 10:22:00 Test Item Value Reference Range Interpretation Comments Basophils # (test code 0.0 See_Comment N [Aut omated message] The = Basophils #) system which generated this result tra nsmitted reference range : <=0.2. The reference r leo was not used to int erpret this result as normal/abnormal . [facility] CenterCechfnrXBTJLLWRNA0512-04-75 10:22:00 Test Item Value Reference Range Interpretation Comments MPV (test code = MPV) 11.0 7.4-10.4 H [facility] CenterNipuowcNKNGMREUQK8721-16-58 10:22:00 Test Item Value Reference Range Interpretation Comments Platelet (test code = Platelet) 161 133-450 N [facility] CenterSkmrwunBVWGFEMITN5031-18-39 10:22:00 Test Item Value Reference Range Interpretation Comments MCH (test code = MCH) 29.6 pg 27.0-31.0 N [facility] CenterIjbsfaaJVJENPSERG3543-00-37 10:22:00 Test Item Value Reference Range Interpretation Comments MCHC (test code = MCHC) 35.4 32.0-36.0 N [facility] CenterUyiwkhfCGTMEOHSJL5382-51-63 10:22:00 Test Item Value Reference Range Interpretation Comments RDW (test code = RDW) 14.1 11.5-14.5 N [facility] CenterTjdbetqDUPTKUVVPV5226-37-56 10:22:00 Test Item Value Reference Range Interpretation Comments WBC (test code = WBC) 6.8 3.7-10.4 N [facility] CenterIgxcekeECTWHGZUDO2565-79-98 10:22:00 Test Item Value Reference Range Interpretation Comments MCV (test code = MCV) 83.5 81.0-99.0 N [facility] CenterDqkzxnpIDYKFMUDPW1435-40-89 10:22:00 Test Item Value Reference Range Interpretation Comments RBC (test code = RBC) 4.44 4.20-5.40 N [facility] CenterQjbchrvRUYSELHHMI1038-84-17 10:22:00 Test Item Value Reference Range Interpretation Comments Hgb (test code = Hgb) 13.1 12.0-16.0 N [facility] CenterRvbfepiQOAQGCLXBX4880-62-41 10:22:00 Test Item Value Reference Range Interpretation Comments Hct (test code = Hct) 37.1 36.0-48.0 N [facility] HospitalMvuzqshTRYQTKJPD4341-24-40 10:22:00 Test Item Value Reference Range Interpretation Comments Phosphorus (test code = Phosphorus) 3.0 2.5-4.5 N [facility] HospitalOgchotaSSFPNJUAE9711-95-24 10:22:00 Test Item Value Reference Range Interpretation Comments Magnesium Lvl (test code = Magnesium 1.8 1.8-2.4 N Lvl) [facility] HospitalItfahgzBUSHGUGQL8556-00-93 10:22:00 Test Item Value Reference Range Interpretation Comments Chloride Lvl (test code = Chloride Lvl) 107 95-109 N [facility] HospitalRbluwyoUOAIEERQU1961-37-12 10:22:00 Test Item Value Reference Range Interpretation Comments Potassium Lvl (test code = Potassium 3.0 3.5-5.1 A Lvl) [facility] HospitalFnqzbfiGBIDRKKJO6399-27-70 10:22:00 Test Item Value Reference Range Interpretation Comments Sodium Lvl (test code = Sodium Lvl) 141 135-145 N [facility] HospitalOudkqsuDTPADSIVZ0599-21-63 10:22:00 Test Item Value Reference Range Interpretation Comments Creatinine Lvl (test code = Creatinine 0.6 0.5-1.4 N Lvl) [facility] HospitalEmxgekmRAYRSYQEX9735-21-35 10:22:00 Test Item Value Reference Range Interpretation Comments CO2 (test code = CO2) 23 24-32 L [facility] HospitalGggxqomZEPMTELNX9987-77-90 10:22:00 Test Item Value Reference Range Interpretation Comments Calcium Lvl (test code = Calcium Lvl) 7.3 8.5-10.5 L [facility] HospitalZqizafmEICOKTRQK1673-92-57 10:22:00 Test Item Value Reference Range Interpretation Comments Glucose Lvl (test code = Glucose Lvl) 136 [facility]CfheiqmWPTCOXMKM9775-49-09 10:22:00 Test Item Value Reference Range Interpretation Comments AGAP (test code = AGAP) 14.0 10.0-20.0 N [facility] HospitalXnnujswXDMEUNZRF3078-89-66 10:22:00 Test Item Value Reference Range Interpretation Comments BUN (test code = BUN) 5 7-22 [facility]SypwfrtFSAZPJRRLQ9452-23-41 10:22:00 Test Item Value Reference Range Interpretation Comments Segs (test code = Segs) 69.6 45.0-75.0 N [facility] CenterFfurwzkYZZJGRRWHW0822-16-15 10:22:00 Test Item Value Reference Range Interpretation Comments Lymphocytes (test code = Lymphocytes) 21.5 20.0-40.0 N [facility] CenterQeclfdiIGCCOVWQMQ8329-78-25 10:22:00 Test Item Value Reference Range Interpretation Comments Monocytes (test code = Monocytes) 7.6 2.0-12.0 N [facility] CenterZsmkwpjUYXNRSDMPD1453-10-07 10:22:00 Test Item Value Reference Range Interpretation Comments Eosinophils (test code = 1.0 See_Comment N [A utomated message] The Eosinophils) system which ge nerated this result tra nsmitted reference range : <=4.0. The reference r leo was not used to int erpret this result as normal/abnormal . [facility] CenterSoljjobEZFIHQZARK9047-32-92 10:22:00 Test Item Value Reference Range Interpretation Comments Basophils (test code = 0.3 See_Comment N [Aut omated message] The Basophils) system which ge nerated this result tra nsmitted reference range : <=1.0. The reference r leo was not used to int erpret this result as normal/abnormal . [facility] CenterJjcxcopDKGDDHVIXQ0290-83-90 10:22:00 Test Item Value Reference Range Interpretation Comments Segs-Bands # (test code = Segs-Bands #) 4.8 1.5-8.1 N [facility] CenterHhtpftkGZSLANZGNE7303-92-55 10:22:00 Test Item Value Reference Range Interpretation Comments Eosinophils # (test code 0.1 See_Comment N [A utomated message] The = Eosinophils #) system ic h generated this result tra nsmitted reference range : <=0.5. The reference r leo was not used to int erpret this result as normal/abnormal . [facility] CenterJwfwqrjHMJFEYXMIX1821-80-94 10:22:00 Test Item Value Reference Range Interpretation Comments Lymphocytes # (test code = Lymphocytes 1.5 1.0-5.5 N #) [facility] CenterSdmnucrIFHMJGOTLG9305-10-25 10:22:00 Test Item Value Reference Range Interpretation Comments Monocytes # (test code 0.5 See_Comment N [Aut omated message] The = Monocytes #) system which generated this result tra nsmitted reference range : <=0.8. The reference r leo was not used to int erpret this result as normal/abnormal . [facility] CenterPpclhztDSREZKVXXI1511-76-10 10:22:00 Test Item Value Reference Range Interpretation Comments Basophils # (test code 0.0 See_Comment N [Aut omated message] The = Basophils #) system which generated this result tra nsmitted reference range : <=0.2. The reference r leo was not used to int erpret this result as normal/abnormal . [facility] CenterVepvkgwHTOXTOWLAO1582-91-31 10:22:00 Test Item Value Reference Range Interpretation Comments MPV (test code = MPV) 11.0 7.4-10.4 H [facility] CenterMcleqboJNSGBHFSVF5690-59-44 10:22:00 Test Item Value Reference Range Interpretation Comments Platelet (test code = Platelet) 161 133-450 N [facility] CenterIrwoxtqACSZUOPFTM3535-24-08 10:22:00 Test Item Value Reference Range Interpretation Comments MCH (test code = MCH) 29.6 pg 27.0-31.0 N [facility] CenterAjaszuqSIBGITFITU1683-36-16 10:22:00 Test Item Value Reference Range Interpretation Comments MCHC (test code = MCHC) 35.4 32.0-36.0 N [facility] CenterKfgsqafJPROMGRQQF7330-09-77 10:22:00 Test Item Value Reference Range Interpretation Comments RDW (test code = RDW) 14.1 11.5-14.5 N [facility] CenterQjikityAUJSJZPZRT3845-77-86 10:22:00 Test Item Value Reference Range Interpretation Comments WBC (test code = WBC) 6.8 3.7-10.4 N [facility] CenterYxhbbsnEHZKMNXSWH6991-27-61 10:22:00 Test Item Value Reference Range Interpretation Comments MCV (test code = MCV) 83.5 81.0-99.0 N [facility] CenterFdtraxsPIFUYIOSRW2427-95-39 10:22:00 Test Item Value Reference Range Interpretation Comments RBC (test code = RBC) 4.44 4.20-5.40 N [facility] CenterKtvmvijUKLWMPJIMO8887-42-51 10:22:00 Test Item Value Reference Range Interpretation Comments Hgb (test code = Hgb) 13.1 12.0-16.0 N [facility] CenterHljdveoFVAHHUWUMM8098-12-42 10:22:00 Test Item Value Reference Range Interpretation Comments Hct (test code = Hct) 37.1 36.0-48.0 N [facility] HospitalGtpmxhoXDNRROWBG3191-28-12 10:22:00 Test Item Value Reference Range Interpretation Comments Phosphorus (test code = Phosphorus) 3.0 2.5-4.5 N [facility] HospitalEsekwxoRDVYYZWNT4628-32-03 10:22:00 Test Item Value Reference Range Interpretation Comments Magnesium Lvl (test code = Magnesium 1.8 1.8-2.4 N Lvl) [facility] HospitalLutfbtwPAEKYLQOC6319-24-05 10:22:00 Test Item Value Reference Range Interpretation Comments Chloride Lvl (test code = Chloride Lvl) 107 95-109 N [facility] HospitalCaklxfpWYUOZPNHM8899-04-94 10:22:00 Test Item Value Reference Range Interpretation Comments Potassium Lvl (test code = Potassium 3.0 3.5-5.1 A Lvl) [facility] HospitalZoocvoxKFVKDXBHN0188-50-65 10:22:00 Test Item Value Reference Range Interpretation Comments Sodium Lvl (test code = Sodium Lvl) 141 135-145 N [facility] HospitalPwshpdgMKMVQREXZ1494-10-99 10:22:00 Test Item Value Reference Range Interpretation Comments Creatinine Lvl (test code = Creatinine 0.6 0.5-1.4 N Lvl) [facility] HospitalUhdqpswBTPFQZCBP3229-49-27 10:22:00 Test Item Value Reference Range Interpretation Comments CO2 (test code = CO2) 23 24-32 L [facility] HospitalBoflcxjEIXCUFKNN0779-06-50 10:22:00 Test Item Value Reference Range Interpretation Comments Calcium Lvl (test code = Calcium Lvl) 7.3 8.5-10.5 L [facility] HospitalXiyowhjWPGKFPSUQ3040-69-53 10:22:00 Test Item Value Reference Range Interpretation Comments Glucose Lvl (test code = Glucose Lvl) 136 [facility] HospitalRifbgdhEZREOMWMM1266-57-23 10:22:00 Test Item Value Reference Range Interpretation Comments AGAP (test code = AGAP) 14.0 10.0-20.0 N [facility] HospitalVaguivrOZUBUOLLM8750-10-09 10:22:00 Test Item Value Reference Range Interpretation Comments BUN (test code = BUN) 5 7-22 L [facility]KhxadpsWMSFCDSJDE5406-03-73 10:22:00 Test Item Value Reference Range Interpretation Comments Segs (test code = Segs) 69.6 45.0-75.0 N [facility] CenterKpwtdtsVAKCFSJGGU6777-69-59 10:22:00 Test Item Value Reference Range Interpretation Comments Lymphocytes (test code = Lymphocytes) 21.5 20.0-40.0 N [facility] CenterXiegzryAVINQNHKVC4399-08-53 10:22:00 Test Item Value Reference Range Interpretation Comments Monocytes (test code = Monocytes) 7.6 2.0-12.0 N [facility] CenterDsmyddkQTMZPOXBSG9091-13-65 10:22:00 Test Item Value Reference Range Interpretation Comments Eosinophils (test code = 1.0 See_Comment N [A utomated message] The Eosinophils) system which ge nerated this result tra nsmitted reference range : <=4.0. The reference r leo was not used to int erpret this result as normal/abnormal . [facility] CenterDhjjyivFGQLUAVDGG2336-29-27 10:22:00 Test Item Value Reference Range Interpretation Comments Basophils (test code = 0.3 See_Comment N [Aut omated message] The Basophils) system which ge nerated this result tra nsmitted reference range : <=1.0. The reference r leo was not used to int erpret this result as normal/abnormal . [facility] CenterAxwapvpHMVYUHIDAO0178-39-37 10:22:00 Test Item Value Reference Range Interpretation Comments Segs-Bands # (test code = Segs-Bands #) 4.8 1.5-8.1 N [facility] CenterYltphilSZOWDOGGVS8814-16-26 10:22:00 Test Item Value Reference Range Interpretation Comments Eosinophils # (test code 0.1 See_Comment N [A utomated message] The = Eosinophils #) system whic h generated this result tra nsmitted reference range : <=0.5. The reference r leo was not used to int erpret this result as normal/abnormal . [facility] CenterRqhpwenQIWLIKGLWD5190-55-09 10:22:00 Test Item Value Reference Range Interpretation Comments Lymphocytes # (test code = Lymphocytes 1.5 1.0-5.5 N #) [facility] CenterGvgurocDBYIVRPTLY5263-22-69 10:22:00 Test Item Value Reference Range Interpretation Comments Monocytes # (test code 0.5 See_Comment N [Aut omated message] The = Monocytes #) system which generated this result tra nsmitted reference range : <=0.8. The reference r leo was not used to int erpret this result as normal/abnormal . [facility] CenterAjrrwvzKTOZASLFFI3812-78-52 10:22:00 Test Item Value Reference Range Interpretation Comments Basophils # (test code 0.0 See_Comment N [Aut omated message] The = Basophils #) system which generated this result tra nsmitted reference range : <=0.2. The reference r leo was not used to int erpret this result as normal/abnormal . [facility] CenterLxvtrsqLLOPMAFMBD7151-46-15 10:22:00 Test Item Value Reference Range Interpretation Comments MPV (test code = MPV) 11.0 7.4-10.4 H [facility] CenterHutfvkpWCPJJUJBTQ6021-14-91 10:22:00 Test Item Value Reference Range Interpretation Comments Platelet (test code = Platelet) 161 133-450 N [facility] CenterOxbgabfGTJJVVILMV3413-52-91 10:22:00 Test Item Value Reference Range Interpretation Comments MCH (test code = MCH) 29.6 pg 27.0-31.0 N [facility] CenterKboeoqpFVKIAGHJHF7718-50-06 10:22:00 Test Item Value Reference Range Interpretation Comments MCHC (test code = MCHC) 35.4 32.0-36.0 N [facility] CenterMqgjdzbAUKDVXOWHJ5842-97-28 10:22:00 Test Item Value Reference Range Interpretation Comments RDW (test code = RDW) 14.1 11.5-14.5 N [facility] CenterUpiyqdjEBNRBPPCSK0396-37-30 10:22:00 Test Item Value Reference Range Interpretation Comments WBC (test code = WBC) 6.8 3.7-10.4 N [facility] CenterWmtoktxWELWVOYLAH4508-61-13 10:22:00 Test Item Value Reference Range Interpretation Comments MCV (test code = MCV) 83.5 81.0-99.0 N [facility] CenterLexofnmPWRMMCLERH0587-64-20 10:22:00 Test Item Value Reference Range Interpretation Comments RBC (test code = RBC) 4.44 4.20-5.40 N [facility] CenterYtmuscbFIKVTERFII3118-46-94 10:22:00 Test Item Value Reference Range Interpretation Comments Hgb (test code = Hgb) 13.1 12.0-16.0 N [facility] CenterWlqkgciUMXSOOCWHN3668-88-74 10:22:00 Test Item Value Reference Range Interpretation Comments Hct (test code = Hct) 37.1 36.0-48.0 N [facility] HospitalYziiogfZNCENUFTM4061-30-45 10:22:00 Test Item Value Reference Range Interpretation Comments Phosphorus (test code = Phosphorus) 3.0 2.5-4.5 N [facility] HospitalCggjydoADVDETQBD3281-82-84 10:22:00 Test Item Value Reference Range Interpretation Comments Magnesium Lvl (test code = Magnesium 1.8 1.8-2.4 N Lvl) [facility] HospitalHvzprjfZNHOKYRCK1881-36-45 10:22:00 Test Item Value Reference Range Interpretation Comments Chloride Lvl (test code = Chloride Lvl) 107 95-109 N [facility] HospitalThmwbdwYMMMHVCJU4680-00-80 10:22:00 Test Item Value Reference Range Interpretation Comments Potassium Lvl (test code = Potassium 3.0 3.5-5.1 A Lvl) [facility] HospitalEqfxhyyTVIXVRUMB4635-94-89 10:22:00 Test Item Value Reference Range Interpretation Comments Sodium Lvl (test code = Sodium Lvl) 141 135-145 N [facility] HospitalQprripzWXFATUNBZ5058-15-33 10:22:00 Test Item Value Reference Range Interpretation Comments Creatinine Lvl (test code = Creatinine 0.6 0.5-1.4 N Lvl) [facility] HospitalCtiuhvqBRIYLTLYH0728-28-52 10:22:00 Test Item Value Reference Range Interpretation Comments CO2 (test code = CO2) 23 24-32 L [facility] HospitalXzccaxaYEZXONBXN7928-96-71 10:22:00 Test Item Value Reference Range Interpretation Comments Calcium Lvl (test code = Calcium Lvl) 7.3 8.5-10.5 L [facility] HospitalFwvgdxvTFNAPVNMK1987-43-35 10:22:00 Test Item Value Reference Range Interpretation Comments Glucose Lvl (test code = Glucose Lvl) 136 [facility] HospitalBtcxxjxCKSBZOJGC8879-17-43 10:22:00 Test Item Value Reference Range Interpretation Comments AGAP (test code = AGAP) 14.0 10.0-20.0 N [facility] HospitalGyhnfuqAGJPULVIO3939-57-08 10:22:00 Test Item Value Reference Range Interpretation Comments BUN (test code = BUN) 5 7-22 L [facility]NavmsrvNVUNUUXGIU9110-14-94 10:22:00 Test Item Value Reference Range Interpretation Comments Segs (test code = Segs) 69.6 45.0-75.0 N [facility] CenterNvzawkmQQGZWSXZYR4523-74-74 10:22:00 Test Item Value Reference Range Interpretation Comments Lymphocytes (test code = Lymphocytes) 21.5 20.0-40.0 N [facility] CenterNvjftvnNQDOIHKZIQ9628-37-06 10:22:00 Test Item Value Reference Range Interpretation Comments Monocytes (test code = Monocytes) 7.6 2.0-12.0 N [facility] CenterWhropjjTLXWRDINYK8989-40-29 10:22:00 Test Item Value Reference Range Interpretation Comments Eosinophils (test code = 1.0 See_Comment N [A utomated message] The Eosinophils) system which ge nerated this result tra nsmitted reference range : <=4.0. The reference r leo was not used to int erpret this result as normal/abnormal . [facility] CenterKlvfqhmJUEAMXTQOF7469-67-63 10:22:00 Test Item Value Reference Range Interpretation Comments Basophils (test code = 0.3 See_Comment N [Aut omated message] The Basophils) system which ge nerated this result tra nsmitted reference range : <=1.0. The reference r leo was not used to int erpret this result as normal/abnormal . [facility] CenterBtuxwvqEIJPMLURAF4891-29-09 10:22:00 Test Item Value Reference Range Interpretation Comments Segs-Bands # (test code = Segs-Bands #) 4.8 1.5-8.1 N [facility] CenterAebvyjxBTQXYIZFQE7433-10-81 10:22:00 Test Item Value Reference Range Interpretation Comments Eosinophils # (test code 0.1 See_Comment N [A utomated message] The = Eosinophils #) system [facility] h generated this result tra nsmitted reference range : <=0.5. The reference r leo was not used to int erpret this result as normal/abnormal . [facility] CenterQtybxamXJPIZXVMQW3474-03-84 10:22:00 Test Item Value Reference Range Interpretation Comments Lymphocytes # (test code = Lymphocytes 1.5 1.0-5.5 N #) [facility] CenterQoqnuflSILXLTSWPJ1283-12-07 10:22:00 Test Item Value Reference Range Interpretation Comments Monocytes # (test code 0.5 See_Comment N [Aut omated message] The = Monocytes #) system which generated this result tra nsmitted reference range : <=0.8. The reference r leo was not used to int erpret this result as normal/abnormal . [facility] CenterBzeyegyXSSWMGHILX0620-96-68 10:22:00 Test Item Value Reference Range Interpretation Comments Basophils # (test code 0.0 See_Comment N [Aut omated message] The = Basophils #) system which generated this result tra nsmitted reference range : <=0.2. The reference r leo was not used to int erpret this result as normal/abnormal . [facility] CenterPazewquKJRGJSSVMR7568-54-41 10:22:00 Test Item Value Reference Range Interpretation Comments MPV (test code = MPV) 11.0 7.4-10.4 H [facility] CenterKyuevbnIITRQFCLSG0511-08-69 10:22:00 Test Item Value Reference Range Interpretation Comments Platelet (test code = Platelet) 161 133-450 N [facility] CenterZehcnzwEGOTZZDWCF3223-38-14 10:22:00 Test Item Value Reference Range Interpretation Comments MCH (test code = MCH) 29.6 pg 27.0-31.0 N [facility] CenterLfbriuzZGRZYWZIIW9868-23-29 10:22:00 Test Item Value Reference Range Interpretation Comments MCHC (test code = MCHC) 35.4 32.0-36.0 N [facility] CenterUjcuiuyGZUMMCIJGQ4289-21-67 10:22:00 Test Item Value Reference Range Interpretation Comments RDW (test code = RDW) 14.1 11.5-14.5 N [facility] CenterLpzttshEZBGSYHRYZ1292-97-05 10:22:00 Test Item Value Reference Range Interpretation Comments WBC (test code = WBC) 6.8 3.7-10.4 N [facility] CenterNygjppsVVSFTRXXLV1108-06-41 10:22:00 Test Item Value Reference Range Interpretation Comments MCV (test code = MCV) 83.5 81.0-99.0 N [facility] CenterBzhcddvESUBXYAXMX1598-21-80 10:22:00 Test Item Value Reference Range Interpretation Comments RBC (test code = RBC) 4.44 4.20-5.40 N [facility] CenterVojcajdNLKYGHHLUR1573-59-16 10:22:00 Test Item Value Reference Range Interpretation Comments Hgb (test code = Hgb) 13.1 12.0-16.0 N [facility] CenterOrxktcqNFVTGQKJBG8773-89-09 10:22:00 Test Item Value Reference Range Interpretation Comments Hct (test code = Hct) 37.1 36.0-48.0 N [facility] HospitalVhxqjfeBHBXOKOTM2806-52-72 10:22:00 Test Item Value Reference Range Interpretation Comments Phosphorus (test code = Phosphorus) 3.0 2.5-4.5 N [facility] HospitalEydqzbmMIWHFCVQS6105-85-71 10:22:00 Test Item Value Reference Range Interpretation Comments Magnesium Lvl (test code = Magnesium 1.8 1.8-2.4 N Lvl) [facility] HospitalWwvqoxqHZYYZWCZN1051-70-71 10:22:00 Test Item Value Reference Range Interpretation Comments Chloride Lvl (test code = Chloride Lvl) 107 95-109 N [facility] HospitalNofvuyiQFAJVPDNC9382-96-65 10:22:00 Test Item Value Reference Range Interpretation Comments Potassium Lvl (test code = Potassium 3.0 3.5-5.1 A Lvl) [facility] HospitalFhaxspxKHXXZHCAT1896-84-04 10:22:00 Test Item Value Reference Range Interpretation Comments Sodium Lvl (test code = Sodium Lvl) 141 135-145 N [facility] HospitalNqvvkphGQOYPQUXO3587-20-28 10:22:00 Test Item Value Reference Range Interpretation Comments Creatinine Lvl (test code = Creatinine 0.6 0.5-1.4 N Lvl) [facility] HospitalUrqjsqcXADKXFIDJ6110-79-56 10:22:00 Test Item Value Reference Range Interpretation Comments CO2 (test code = CO2) 23 24-32 L [facility] HospitalTyeyaghVHGGRJAED7916-79-63 10:22:00 Test Item Value Reference Range Interpretation Comments Calcium Lvl (test code = Calcium Lvl) 7.3 8.5-10.5 L [facility] HospitalFlxdtkpKILWUXORB2696-23-70 10:22:00 Test Item Value Reference Range Interpretation Comments Glucose Lvl (test code = Glucose Lvl) 136 [facility] HospitalJxmmgtfGZIHPMIUO8322-41-30 10:22:00 Test Item Value Reference Range Interpretation Comments AGAP (test code = AGAP) 14.0 10.0-20.0 N [facility] HospitalWyyazwhZIOXZVPRX9667-43-19 10:22:00 Test Item Value Reference Range Interpretation Comments BUN (test code = BUN) 5 7-22 L [facility] CenterPegmkjpHKZGPSGSKR0498-82-39 10:22:00 Test Item Value Reference Range Interpretation Comments Segs (test code = Segs) 69.6 45.0-75.0 N [facility] CenterRyezyepMUGRHOBCMB6351-74-89 10:22:00 Test Item Value Reference Range Interpretation Comments Lymphocytes (test code = Lymphocytes) 21.5 20.0-40.0 N [facility] CenterJohzpcjQBSQGYKAYD1993-63-35 10:22:00 Test Item Value Reference Range Interpretation Comments Monocytes (test code = Monocytes) 7.6 2.0-12.0 N [facility] CenterHhjhavhADVHMHTUCJ4891-89-88 10:22:00 Test Item Value Reference Range Interpretation Comments Eosinophils (test code = 1.0 See_Comment N [A utomated message] The Eosinophils) system which ge nerated this result tra nsmitted reference range : <=4.0. The reference r leo was not used to int erpret this result as normal/abnormal . [facility] CenterMdbtlipMNKXZNVQMY8220-41-52 10:22:00 Test Item Value Reference Range Interpretation Comments Basophils (test code = 0.3 See_Comment N [Aut omated message] The Basophils) system which ge nerated this result tra nsmitted reference range : <=1.0. The reference r leo was not used to int erpret this result as normal/abnormal . [facility] CenterQoiirrbMHFNUAOHNJ3521-38-25 10:22:00 Test Item Value Reference Range Interpretation Comments Segs-Bands # (test code = Segs-Bands #) 4.8 1.5-8.1 N [facility] CenterRzztbqwYYWQFSWPOZ8736-67-16 10:22:00 Test Item Value Reference Range Interpretation Comments Eosinophils # (test code 0.1 See_Comment N [A utomated message] The = Eosinophils #) system [facility] h generated this result tra nsmitted reference range : <=0.5. The reference r leo was not used to int erpret this result as normal/abnormal . [facility] CenterRaipusnTMUPSKTNXC2518-77-79 10:22:00 Test Item Value Reference Range Interpretation Comments Lymphocytes # (test code = Lymphocytes 1.5 1.0-5.5 N #) [facility] CenterHjlmmqvIQKDDASMDZ9347-71-93 10:22:00 Test Item Value Reference Range Interpretation Comments Monocytes # (test code 0.5 See_Comment N [Aut omated message] The = Monocytes #) system which generated this result tra nsmitted reference range : <=0.8. The reference r leo was not used to int erpret this result as normal/abnormal . [facility] CenterWadkjugQPOYMAJGSY3045-30-36 10:22:00 Test Item Value Reference Range Interpretation Comments Basophils # (test code 0.0 See_Comment N [Aut omated message] The = Basophils #) system which generated this result tra nsmitted reference range : <=0.2. The reference r leo was not used to int erpret this result as normal/abnormal . [facility] CenterTjkvhuwDLNJQGAZFQ2441-37-27 10:22:00 Test Item Value Reference Range Interpretation Comments MPV (test code = MPV) 11.0 7.4-10.4 H [facility] CenterRlvqfcpHNZEKXGHMG7641-53-85 10:22:00 Test Item Value Reference Range Interpretation Comments Platelet (test code = Platelet) 161 133-450 N [facility] CenterLhrhaonYXXSNONFVR7388-70-51 10:22:00 Test Item Value Reference Range Interpretation Comments MCH (test code = MCH) 29.6 pg 27.0-31.0 N [facility] CenterXwqjlptGPYOJBDSJZ8620-12-54 10:22:00 Test Item Value Reference Range Interpretation Comments MCHC (test code = MCHC) 35.4 32.0-36.0 N [facility] CenterJwfhskwBZVDTZVNMU7934-45-92 10:22:00 Test Item Value Reference Range Interpretation Comments RDW (test code = RDW) 14.1 11.5-14.5 N [facility] CenterAhmvvmhGMIZUXSXDF7289-83-15 10:22:00 Test Item Value Reference Range Interpretation Comments WBC (test code = WBC) 6.8 3.7-10.4 N [facility] CenterEnmswnwGBITAFPVIB6332-03-83 10:22:00 Test Item Value Reference Range Interpretation Comments MCV (test code = MCV) 83.5 81.0-99.0 N [facility] CenterYfvkcsaKOEATHNBNJ9931-18-59 10:22:00 Test Item Value Reference Range Interpretation Comments RBC (test code = RBC) 4.44 4.20-5.40 N [facility] CenterIixszimVVULMVOFJK6377-41-90 10:22:00 Test Item Value Reference Range Interpretation Comments Hgb (test code = Hgb) 13.1 12.0-16.0 N [facility] CenterDhogxecNNXQBLKAFA4481-93-52 10:22:00 Test Item Value Reference Range Interpretation Comments Hct (test code = Hct) 37.1 36.0-48.0 N [facility] GLUCOSE XRFYMKX5533-07-60 02:20:00 Test Item Value Reference Range Interpretation Comments Comment1 (test code = Comment1) Notify RN/ [facility] GLUCOSE UVKMRWL1698-59-68 02:20:00 Test Item Value Reference Range Interpretation Comments Gluc POC [facility] (test code = Gluc POC 332 65-110 H [facility]) [facility] GLUCOSE FQTHHBO2895-88-10 02:20:00 Test Item Value Reference Range Interpretation Comments Comment1 (test code = Comment1) Notify RN/ [facility] GLUCOSE [id number] 02:20:00 Test Item Value Reference Range Interpretation Comments Gluc POC [facility] (test code = Gluc POC 332 65-110 H [facility]) [facility] GLUCOSE VWMSNJU5312-10-55 02:20:00 Test Item Value Reference Range Interpretation Comments Comment1 (test code = Comment1) Notify RN/ [facility] GLUCOSE [id number] 02:20:00 Test Item Value Reference Range Interpretation Comments Gluc POC [facility] (test code = Gluc POC 332 65-110 H [facility]) [facility] GLUCOSE CYFBVAV4541-65-00 02:20:00 Test Item Value Reference Range Interpretation Comments Comment1 (test code = Comment1) Notify RN/ [facility] GLUCOSE [id number] 02:20:00 Test Item Value Reference Range Interpretation Comments Gluc POC [facility] (test code = Gluc POC 332 65-110 H [facility]) [facility] GLUCOSE [id number] 02:20:00 Test Item Value Reference Range Interpretation Comments Comment1 (test code = Comment1) Notify RN/ [facility] GLUCOSE [id number] 02:20:00 Test Item Value Reference Range Interpretation Comments Gluc POC Lifscn (test code = Gluc POC 332 65-110 H Lifscn) [facility]xwyRPIOCDMNG1055-76-74 09:47:00 Test Item Value Reference Range Interpretation Comments Phosphorus (test code = Phosphorus) 2.5 2.5-4.5 N [facility] HospitalQsbpomcMWBJLQWHD0504-88-60 09:47:00 Test Item Value Reference Range Interpretation Comments Glucose Lvl (test code = Glucose Lvl) 201 [facility] HospitalJwmgefgACUTOWTJC1094-15-04 09:47:00 Test Item Value Reference Range Interpretation Comments BUN (test code = BUN) 7 7-22 N [facility] HospitalOzmogmuGURFCDZVL1590-41-66 09:47:00 Test Item Value Reference Range Interpretation Comments CO2 (test code = CO2) 19 24-32 L [facility] HospitalQrkurziIPKCCLXMN2575-69-72 09:47:00 Test Item Value Reference Range Interpretation Comments Creatinine Lvl (test code = Creatinine 0.3 0.5-1.4 L Lvl) [facility] HospitalZdtrehyBDTPBFNKA3775-24-33 09:47:00 Test Item Value Reference Range Interpretation Comments Sodium Lvl (test code = Sodium Lvl) 137 135-145 N [facility] HospitalFqdhygfFGXBVTRBS8430-13-47 09:47:00 Test Item Value Reference Range Interpretation Comments Chloride Lvl (test code = Chloride Lvl) 103 95-109 N [facility] HospitalLoitxaoWBXGWBMXS9093-43-57 09:47:00 Test Item Value Reference Range Interpretation Comments Potassium Lvl (test code = Potassium 3.6 3.5-5.1 N Lvl) [facility] HospitalTdezdziYRDCWAOHG4529-97-20 09:47:00 Test Item Value Reference Range Interpretation Comments Calcium Lvl (test code = Calcium Lvl) 7.9 8.5-10.5 L [facility] HospitalOnuwdedIGKKKGMQR7598-29-00 09:47:00 Test Item Value Reference Range Interpretation Comments AGAP (test code = AGAP) 18.6 10.0-20.0 N [facility] HospitalGkpdekwITBJQQUDV6099-38-29 09:47:00 Test Item Value Reference Range Interpretation Comments Magnesium Lvl (test code = Magnesium 1.6 1.8-2.4 L Lvl) [facility]HebgbsmYVUBSTWRPE7240-96-42 09:47:00 Test Item Value Reference Range Interpretation Comments Basophils # (test code 0.0 See_Comment N [Aut omated message] The = Basophils #) system which generated this result tra nsmitted reference range : <=0.2. The reference r leo was not used to int erpret this result as normal/abnormal . [facility] CenterEyvkgcbDQBABFAVNH6469-34-01 09:47:00 Test Item Value Reference Range Interpretation Comments Eosinophils (test code = 0.4 See_Comment N [A utomated message] The Eosinophils) system which ge nerated this result tra nsmitted reference range : <=4.0. The reference r leo was not used to int erpret this result as normal/abnormal . [facility] CenterOkhpqqaBDUWSPZHHP2334-42-89 09:47:00 Test Item Value Reference Range Interpretation Comments Basophils (test code = 0.5 See_Comment N [Aut omated message] The Basophils) system which ge nerated this result tra nsmitted reference range : <=1.0. The reference r leo was not used to int erpret this result as normal/abnormal . [facility] CenterKidmhplRAKNLLTKRL6188-12-45 09:47:00 Test Item Value Reference Range Interpretation Comments Segs-Bands # (test code = Segs-Bands #) 5.9 1.5-8.1 N [facility] CenterKicosgyXQYTFYYMYV8910-88-80 09:47:00 Test Item Value Reference Range Interpretation Comments Lymphocytes # (test code = Lymphocytes 1.2 1.0-5.5 N #) [facility] CenterMljmlgsPEIFOKMAJF2429-78-99 09:47:00 Test Item Value Reference Range Interpretation Comments Monocytes # (test code 0.5 See_Comment N [Aut omated message] The = Monocytes #) system which generated this result tra nsmitted reference range : <=0.8. The reference r leo was not used to int erpret this result as normal/abnormal . [facility] CenterXduaxewRBTNDKKYWH5755-03-64 09:47:00 Test Item Value Reference Range Interpretation Comments Eosinophils # (test code 0.0 See_Comment N [A utomated message] The = Eosinophils #) system whic h generated this result tra nsmitted reference range : <=0.5. The reference r leo was not used to int erpret this result as normal/abnormal . [facility] CenterUxmwsngLYZVCBFOFG4960-65-61 09:47:00 Test Item Value Reference Range Interpretation Comments Segs (test code = Segs) 76.9 45.0-75.0 H [facility] CenterPyfqsfrKQVIYAJXKW8884-00-99 09:47:00 Test Item Value Reference Range Interpretation Comments Lymphocytes (test code = Lymphocytes) 15.9 20.0-40.0 L [facility] CenterEatwixlATLNYFFUNS3435-15-66 09:47:00 Test Item Value Reference Range Interpretation Comments Monocytes (test code = Monocytes) 6.3 2.0-12.0 N [facility] CenterBrsrchxBRGSFOFJJM0349-41-21 09:47:00 Test Item Value Reference Range Interpretation Comments MCV (test code = MCV) 82.8 81.0-99.0 N [facility] CenterWjdkrbwGAURNZBIFP8539-89-61 09:47:00 Test Item Value Reference Range Interpretation Comments Hct (test code = Hct) 39.7 36.0-48.0 N [facility] CenterYwyzoqoSKAFKPAEFT9043-61-46 09:47:00 Test Item Value Reference Range Interpretation Comments MCH (test code = MCH) 29.1 pg 27.0-31.0 N [facility] CenterNmbmyxeANEWZBEFZP3670-65-42 09:47:00 Test Item Value Reference Range Interpretation Comments Hgb (test code = Hgb) 14.0 12.0-16.0 N [facility] CenterZgrqankCUDXMPNBIT3740-40-42 09:47:00 Test Item Value Reference Range Interpretation Comments MCHC (test code = MCHC) 35.2 32.0-36.0 N [facility] CenterSouftyxEMECXGRILN1401-85-34 09:47:00 Test Item Value Reference Range Interpretation Comments RDW (test code = RDW) 13.9 11.5-14.5 N [facility] CenterEziwqilBFHNHEWYJV8125-61-38 09:47:00 Test Item Value Reference Range Interpretation Comments Platelet (test code = Platelet) 160 133-450 N [facility] CenterXysryjvYIJNROIDSF2985-47-83 09:47:00 Test Item Value Reference Range Interpretation Comments MPV (test code = MPV) 11.9 7.4-10.4 H [facility] CenterYihfrtzVLJWSKRBOE3069-01-72 09:47:00 Test Item Value Reference Range Interpretation Comments WBC (test code = WBC) 7.7 3.7-10.4 N [facility] CenterUjnnxwxFCYOVKZVCS0862-73-32 09:47:00 Test Item Value Reference Range Interpretation Comments RBC (test code = RBC) 4.80 4.20-5.40 N [facility] HospitalSobhtveZIKIKYMPO6797-53-04 09:47:00 Test Item Value Reference Range Interpretation Comments Phosphorus (test code = Phosphorus) 2.5 2.5-4.5 N [facility] HospitalBzpigiiRLYXNFZKO0793-85-92 09:47:00 Test Item Value Reference Range Interpretation Comments Glucose Lvl (test code = Glucose Lvl) 201 [facility] HospitalWdtdkrtBCBPJVJCI4380-94-89 09:47:00 Test Item Value Reference Range Interpretation Comments BUN (test code = BUN) 7 7-22 N [facility] HospitalVyhkermAUYQOACJU1913-66-43 09:47:00 Test Item Value Reference Range Interpretation Comments CO2 (test code = CO2) 19 24-32 L [facility] HospitalXryjcpyGUPNTYJLL0350-34-50 09:47:00 Test Item Value Reference Range Interpretation Comments Creatinine Lvl (test code = Creatinine 0.3 0.5-1.4 L Lvl) [facility] HospitalNoqyiinOSHEXVAEJ0949-87-51 09:47:00 Test Item Value Reference Range Interpretation Comments Sodium Lvl (test code = Sodium Lvl) 137 135-145 N [facility] HospitalPouzfygUZTDQREMM1418-06-11 09:47:00 Test Item Value Reference Range Interpretation Comments Chloride Lvl (test code = Chloride Lvl) 103 95-109 N [facility] HospitalAvdrhdaJRVLHPPYT6399-66-19 09:47:00 Test Item Value Reference Range Interpretation Comments Potassium Lvl (test code = Potassium 3.6 3.5-5.1 N Lvl) [facility] HospitalQyhcoylTBJCQMWKU1991-43-16 09:47:00 Test Item Value Reference Range Interpretation Comments Calcium Lvl (test code = Calcium Lvl) 7.9 8.5-10.5 L [facility] HospitalLiuvnmuGCGODPJKZ7068-17-61 09:47:00 Test Item Value Reference Range Interpretation Comments AGAP (test code = AGAP) 18.6 10.0-20.0 N [facility] HospitalMwqtketGJEDWRPOJ2346-93-66 09:47:00 Test Item Value Reference Range Interpretation Comments Magnesium Lvl (test code = Magnesium 1.6 1.8-2.4 L Lvl) [facility] CenterKkiixxiTQQUBCMJMW2078-75-67 09:47:00 Test Item Value Reference Range Interpretation Comments Basophils # (test code 0.0 See_Comment N [Aut omated message] The = Basophils #) system which generated this result tra nsmitted reference range : <=0.2. The reference r leo was not used to int erpret this result as normal/abnormal . [facility] CenterHopbzrcTPWFPUZSNN1051-25-90 09:47:00 Test Item Value Reference Range Interpretation Comments Eosinophils (test code = 0.4 See_Comment N [A utomated message] The Eosinophils) system which ge nerated this result tra nsmitted reference range : <=4.0. The reference r leo was not used to int erpret this result as normal/abnormal . [facility] CenterLvvhugwCNHPPTOPWN1509-78-42 09:47:00 Test Item Value Reference Range Interpretation Comments Basophils (test code = 0.5 See_Comment N [Aut omated message] The Basophils) system which ge nerated this result tra nsmitted reference range : <=1.0. The reference r leo was not used to int erpret this result as normal/abnormal . [facility] CenterMiwfzdySSRQWEMLGW5048-19-57 09:47:00 Test Item Value Reference Range Interpretation Comments Segs-Bands # (test code = Segs-Bands #) 5.9 1.5-8.1 N [facility] CenterLgevfrmJKKWKQGNVF5450-47-07 09:47:00 Test Item Value Reference Range Interpretation Comments Lymphocytes # (test code = Lymphocytes 1.2 1.0-5.5 N #) [facility] CenterQaftnieNQPGTHDBIK5419-82-46 09:47:00 Test Item Value Reference Range Interpretation Comments Monocytes # (test code 0.5 See_Comment N [Aut omated message] The = Monocytes #) system which generated this result tra nsmitted reference range : <=0.8. The reference r leo was not used to int erpret this result as normal/abnormal . [facility] CenterQpacmmsDWTCZRVECC9981-90-62 09:47:00 Test Item Value Reference Range Interpretation Comments Eosinophils # (test code 0.0 See_Comment N [A utomated message] The = Eosinophils #) system whic h generated this result tra nsmitted reference range : <=0.5. The reference r leo was not used to int erpret this result as normal/abnormal . [facility] CenterEkkgiynZBPBOXDQMB6731-42-27 09:47:00 Test Item Value Reference Range Interpretation Comments Segs (test code = Segs) 76.9 45.0-75.0 H [facility] CenterTxqmvwsLOWHDITRXK1230-59-98 09:47:00 Test Item Value Reference Range Interpretation Comments Lymphocytes (test code = Lymphocytes) 15.9 20.0-40.0 L [facility] CenterNcatazbYFQVQXTIXV6311-82-34 09:47:00 Test Item Value Reference Range Interpretation Comments Monocytes (test code = Monocytes) 6.3 2.0-12.0 N [facility] CenterPvbofbaNWWOHRGCID0879-56-15 09:47:00 Test Item Value Reference Range Interpretation Comments MCV (test code = MCV) 82.8 81.0-99.0 N [facility] CenterUdabjjbVBDMTGYELF6561-80-36 09:47:00 Test Item Value Reference Range Interpretation Comments Hct (test code = Hct) 39.7 36.0-48.0 N [facility] CenterVojxyaxQDWQPZDAOW7184-36-44 09:47:00 Test Item Value Reference Range Interpretation Comments MCH (test code = MCH) 29.1 pg 27.0-31.0 N [facility] CenterHemdvizXCANLSTVNR1558-00-31 09:47:00 Test Item Value Reference Range Interpretation Comments Hgb (test code = Hgb) 14.0 12.0-16.0 N [facility] CenterWhxpqwzPEXIMVRPUA2695-59-12 09:47:00 Test Item Value Reference Range Interpretation Comments MCHC (test code = MCHC) 35.2 32.0-36.0 N [facility] CenterCfndgzsKYZYZPQTNC2344-20-65 09:47:00 Test Item Value Reference Range Interpretation Comments RDW (test code = RDW) 13.9 11.5-14.5 N [facility] CenterQgsvxidELZOJDSRBF7362-01-23 09:47:00 Test Item Value Reference Range Interpretation Comments Platelet (test code = Platelet) 160 133-450 N [facility] CenterAqyztecMHKAAXPKZG0675-39-95 09:47:00 Test Item Value Reference Range Interpretation Comments MPV (test code = MPV) 11.9 7.4-10.4 H [facility] CenterJtwsqvgGHROYUWKJW2898-34-37 09:47:00 Test Item Value Reference Range Interpretation Comments WBC (test code = WBC) 7.7 3.7-10.4 N [facility] CenterGzlimsnJUXDNJIIHB4918-82-48 09:47:00 Test Item Value Reference Range Interpretation Comments RBC (test code = RBC) 4.80 4.20-5.40 N [facility] HospitalTpubeekEMPYHKQJO5088-52-58 09:47:00 Test Item Value Reference Range Interpretation Comments Phosphorus (test code = Phosphorus) 2.5 2.5-4.5 N [facility] HospitalImxmwhgMCWPIMLZC6831-28-23 09:47:00 Test Item Value Reference Range Interpretation Comments Glucose Lvl (test code = Glucose Lvl) 201 [facility] HospitalXmckmbzFTUEXKEVM3372-39-23 09:47:00 Test Item Value Reference Range Interpretation Comments BUN (test code = BUN) 7 7-22 N [facility] HospitalOqqvfwiXKTRVTOOO3653-63-77 09:47:00 Test Item Value Reference Range Interpretation Comments CO2 (test code = CO2) 19 24-32 L [facility] HospitalLcowpfmENCVWOAKZ7815-08-32 09:47:00 Test Item Value Reference Range Interpretation Comments Creatinine Lvl (test code = Creatinine 0.3 0.5-1.4 L Lvl) [facility] HospitalVijpzudIQFVBCJGQ8469-09-22 09:47:00 Test Item Value Reference Range Interpretation Comments Sodium Lvl (test code = Sodium Lvl) 137 135-145 N [facility] HospitalIbdehcdLKNXPLPGW1438-65-27 09:47:00 Test Item Value Reference Range Interpretation Comments Chloride Lvl (test code = Chloride Lvl) 103 95-109 N [facility] HospitalLeoscfxPXGXGQYVW7873-49-47 09:47:00 Test Item Value Reference Range Interpretation Comments Potassium Lvl (test code = Potassium 3.6 3.5-5.1 N Lvl) [facility] HospitalYhswbbrTZGLRHSIF1103-02-85 09:47:00 Test Item Value Reference Range Interpretation Comments Calcium Lvl (test code = Calcium Lvl) 7.9 8.5-10.5 L [facility] HospitalNbowimmVVBBDPRGQ6579-72-74 09:47:00 Test Item Value Reference Range Interpretation Comments AGAP (test code = AGAP) 18.6 10.0-20.0 N [facility] HospitalAxqfoikOQXWFZNHQ1466-32-79 09:47:00 Test Item Value Reference Range Interpretation Comments Magnesium Lvl (test code = Magnesium 1.6 1.8-2.4 L Lvl) [facility] CenterFeduwnvKQFQYIQTUO2080-56-84 09:47:00 Test Item Value Reference Range Interpretation Comments Basophils # (test code 0.0 See_Comment N [Aut omated message] The = Basophils #) system which generated this result tra nsmitted reference range : <=0.2. The reference r leo was not used to int erpret this result as normal/abnormal . [facility] CenterLsewuwsBQSSSTLEJF3756-30-20 09:47:00 Test Item Value Reference Range Interpretation Comments Eosinophils (test code = 0.4 See_Comment N [A utomated message] The Eosinophils) system which ge nerated this result tra nsmitted reference range : <=4.0. The reference r leo was not used to int erpret this result as normal/abnormal . [facility] CenterKnwyhcuCGQVLGMBII2359-89-16 09:47:00 Test Item Value Reference Range Interpretation Comments Basophils (test code = 0.5 See_Comment N [Aut omated message] The Basophils) system which ge nerated this result tra nsmitted reference range : <=1.0. The reference r leo was not used to int erpret this result as normal/abnormal . [facility] CenterLixeabpRQWXWIXVPY5215-83-40 09:47:00 Test Item Value Reference Range Interpretation Comments Segs-Bands # (test code = Segs-Bands #) 5.9 1.5-8.1 N [facility] CenterQqfirueBBAWRJPQVM4080-54-08 09:47:00 Test Item Value Reference Range Interpretation Comments Lymphocytes # (test code = Lymphocytes 1.2 1.0-5.5 N #) [facility] CenterSlsrhevPXSLUKKOLJ6186-87-61 09:47:00 Test Item Value Reference Range Interpretation Comments Monocytes # (test code 0.5 See_Comment N [Aut omated message] The = Monocytes #) system which generated this result tra nsmitted reference range : <=0.8. The reference r leo was not used to int erpret this result as normal/abnormal . [facility] CenterIzqyuilDMLEZCEKAP8258-94-55 09:47:00 Test Item Value Reference Range Interpretation Comments Eosinophils # (test code 0.0 See_Comment N [A utomated message] The = Eosinophils #) system whic h generated this result tra nsmitted reference range : <=0.5. The reference r leo was not used to int erpret this result as normal/abnormal . [facility] CenterPbfgzgxHEKTKIABCX3593-39-30 09:47:00 Test Item Value Reference Range Interpretation Comments Segs (test code = Segs) 76.9 45.0-75.0 H [facility] CenterJoliuuiROAJWYMXIO4514-30-53 09:47:00 Test Item Value Reference Range Interpretation Comments Lymphocytes (test code = Lymphocytes) 15.9 20.0-40.0 L [facility] CenterJigyfdxPTJYDIKLJG9286-34-06 09:47:00 Test Item Value Reference Range Interpretation Comments Monocytes (test code = Monocytes) 6.3 2.0-12.0 N [facility] CenterLumucvxPSENOIVBFJ0352-94-42 09:47:00 Test Item Value Reference Range Interpretation Comments MCV (test code = MCV) 82.8 81.0-99.0 N [facility] CenterGqmaxtoNECJWFAVQU0228-63-55 09:47:00 Test Item Value Reference Range Interpretation Comments Hct (test code = Hct) 39.7 36.0-48.0 N [facility] CenterIjeyeaoJJRBGFXIGR9646-16-96 09:47:00 Test Item Value Reference Range Interpretation Comments MCH (test code = MCH) 29.1 pg 27.0-31.0 N [facility] CenterJynktwhZGAGXULNSQ7856-11-97 09:47:00 Test Item Value Reference Range Interpretation Comments Hgb (test code = Hgb) 14.0 12.0-16.0 N [facility] CenterLzjgyrxWFYHQSFUSU2669-52-93 09:47:00 Test Item Value Reference Range Interpretation Comments MCHC (test code = MCHC) 35.2 32.0-36.0 N [facility] CenterVxgkoqpGGQGYKYNZY2065-72-21 09:47:00 Test Item Value Reference Range Interpretation Comments RDW (test code = RDW) 13.9 11.5-14.5 N [facility] CenterYqlnngqWFMITOJIXL1302-37-46 09:47:00 Test Item Value Reference Range Interpretation Comments Platelet (test code = Platelet) 160 133-450 N [facility] CenterAeuguxtDSFIUYXCOG1532-34-89 09:47:00 Test Item Value Reference Range Interpretation Comments MPV (test code = MPV) 11.9 7.4-10.4 H [facility] CenterDvybngzQVAFYNTWKD8701-16-83 09:47:00 Test Item Value Reference Range Interpretation Comments WBC (test code = WBC) 7.7 3.7-10.4 N [facility] CenterXlsxzefXWGKANJQXY6331-47-36 09:47:00 Test Item Value Reference Range Interpretation Comments RBC (test code = RBC) 4.80 4.20-5.40 N [facility] HospitalTscolknLDMZWDPIC9047-57-69 09:47:00 Test Item Value Reference Range Interpretation Comments Phosphorus (test code = Phosphorus) 2.5 2.5-4.5 N [facility] HospitalLunluvhXTVFZNYTE9851-66-04 09:47:00 Test Item Value Reference Range Interpretation Comments Glucose Lvl (test code = Glucose Lvl) 201 [facility] HospitalHkhjdkuTOLPKQGPX1391-76-47 09:47:00 Test Item Value Reference Range Interpretation Comments BUN (test code = BUN) 7 7-22 N [facility] HospitalZtptvkhOAFZRJXYL7590-84-89 09:47:00 Test Item Value Reference Range Interpretation Comments CO2 (test code = CO2) 19 24-32 L [facility] HospitalNvfjoulGHIXACSGX8680-19-27 09:47:00 Test Item Value Reference Range Interpretation Comments Creatinine Lvl (test code = Creatinine 0.3 0.5-1.4 L Lvl) [facility] HospitalJylqshfITPAMGXWE1100-59-88 09:47:00 Test Item Value Reference Range Interpretation Comments Sodium Lvl (test code = Sodium Lvl) 137 135-145 N [facility] HospitalMzttzucJYVLKSVBY3371-58-96 09:47:00 Test Item Value Reference Range Interpretation Comments Chloride Lvl (test code = Chloride Lvl) 103 95-109 N [facility] HospitalQoqybiiWTVLSODNX1748-94-03 09:47:00 Test Item Value Reference Range Interpretation Comments Potassium Lvl (test code = Potassium 3.6 3.5-5.1 N Lvl) [facility] HospitalTjylwnlREZFGWJQX7565-12-66 09:47:00 Test Item Value Reference Range Interpretation Comments Calcium Lvl (test code = Calcium Lvl) 7.9 8.5-10.5 L [facility] HospitalLgsrmqyGHMYNWPZZ6723-66-88 09:47:00 Test Item Value Reference Range Interpretation Comments AGAP (test code = AGAP) 18.6 10.0-20.0 N [facility] HospitalJazyoszHKVVBTCEK4221-51-70 09:47:00 Test Item Value Reference Range Interpretation Comments Magnesium Lvl (test code = Magnesium 1.6 1.8-2.4 L Lvl) [facility] CenterYykcndqJYAVOKCAUJ6990-26-98 09:47:00 Test Item Value Reference Range Interpretation Comments Basophils # (test code 0.0 See_Comment N [Aut omated message] The = Basophils #) system which generated this result tra nsmitted reference range : <=0.2. The reference r leo was not used to int erpret this result as normal/abnormal . [facility] CenterFziutwaMSVRHOZXKR2543-47-18 09:47:00 Test Item Value Reference Range Interpretation Comments Eosinophils (test code = 0.4 See_Comment N [A utomated message] The Eosinophils) system which ge nerated this result tra nsmitted reference range : <=4.0. The reference r leo was not used to int erpret this result as normal/abnormal . [facility] CenterVqsvdllBYFHBTQXQB3282-29-89 09:47:00 Test Item Value Reference Range Interpretation Comments Basophils (test code = 0.5 See_Comment N [Aut omated message] The Basophils) system which ge nerated this result tra nsmitted reference range : <=1.0. The reference r leo was not used to int erpret this result as normal/abnormal . [facility] CenterUsniwpmQLJMMOQTRS8711-02-95 09:47:00 Test Item Value Reference Range Interpretation Comments Segs-Bands # (test code = Segs-Bands #) 5.9 1.5-8.1 N [facility] CenterBbfsnpfOPWGLIZBRT2206-27-99 09:47:00 Test Item Value Reference Range Interpretation Comments Lymphocytes # (test code = Lymphocytes 1.2 1.0-5.5 N #) [facility] CenterCdmeziwWLWSAZDOSZ1666-63-50 09:47:00 Test Item Value Reference Range Interpretation Comments Monocytes # (test code 0.5 See_Comment N [Aut omated message] The = Monocytes #) system which generated this result tra nsmitted reference range : <=0.8. The reference r leo was not used to int erpret this result as normal/abnormal . [facility] CenterEabopdiFYONBWFPSL1388-95-59 09:47:00 Test Item Value Reference Range Interpretation Comments Eosinophils # (test code 0.0 See_Comment N [A utomated message] The = Eosinophils #) system whic h generated this result tra nsmitted reference range : <=0.5. The reference r leo was not used to int erpret this result as normal/abnormal . [facility] CenterSmsuaqyDVFMMMZRBP5863-07-98 09:47:00 Test Item Value Reference Range Interpretation Comments Segs (test code = Segs) 76.9 45.0-75.0 H [facility] CenterYxzdfgtBNHJPRJUNO4715-31-91 09:47:00 Test Item Value Reference Range Interpretation Comments Lymphocytes (test code = Lymphocytes) 15.9 20.0-40.0 L [facility] CenterCxogoflGQYYWSPBXK8276-34-69 09:47:00 Test Item Value Reference Range Interpretation Comments Monocytes (test code = Monocytes) 6.3 2.0-12.0 N [facility] CenterWfkmwbeHYGABWUUFX0783-21-75 09:47:00 Test Item Value Reference Range Interpretation Comments MCV (test code = MCV) 82.8 81.0-99.0 N [facility] CenterJdgiqqbYUPSOGODPL8523-10-51 09:47:00 Test Item Value Reference Range Interpretation Comments Hct (test code = Hct) 39.7 36.0-48.0 N [facility] CenterVtbcyqxIKNCBBKZFH6351-36-99 09:47:00 Test Item Value Reference Range Interpretation Comments MCH (test code = MCH) 29.1 pg 27.0-31.0 N [facility] CenterYjhwvgcFNFMCEBDSY3738-46-63 09:47:00 Test Item Value Reference Range Interpretation Comments Hgb (test code = Hgb) 14.0 12.0-16.0 N [facility] CenterXbraicaBYIVWUIBWO1179-40-68 09:47:00 Test Item Value Reference Range Interpretation Comments MCHC (test code = MCHC) 35.2 32.0-36.0 N [facility] CenterTzkmiagOQHLPSYDOL0529-45-59 09:47:00 Test Item Value Reference Range Interpretation Comments RDW (test code = RDW) 13.9 11.5-14.5 N [facility] CenterSyifdtmIPHFXDBHTQ4820-58-65 09:47:00 Test Item Value Reference Range Interpretation Comments Platelet (test code = Platelet) 160 133-450 N [facility] CenterNhxadbwJUYCEJTOMI3448-05-67 09:47:00 Test Item Value Reference Range Interpretation Comments MPV (test code = MPV) 11.9 7.4-10.4 H [facility] CenterCvublrpPUGATNWKEJ8554-22-77 09:47:00 Test Item Value Reference Range Interpretation Comments WBC (test code = WBC) 7.7 3.7-10.4 [facility]LxvstuyAMBINYNWIG3559-84-34 09:47:00 Test Item Value Reference Range Interpretation Comments RBC (test code = RBC) 4.80 4.20-5.40 [facility]GrdbwntKMCOFWGIM6202-46-28 09:47:00 Test Item Value Reference Range Interpretation Comments Phosphorus (test code = Phosphorus) 2.5 2.5-4.5 N [facility] HospitalPmwcarjCHENZYAZA0405-80-88 09:47:00 Test Item Value Reference Range Interpretation Comments Glucose Lvl (test code = Glucose Lvl) 201 [facility] HospitalFldbylvTKKZKZGVI9377-78-44 09:47:00 Test Item Value Reference Range Interpretation Comments BUN (test code = BUN) 7 7-22 N [facility] HospitalUsjojvbHABASRGDG6835-11-13 09:47:00 Test Item Value Reference Range Interpretation Comments CO2 (test code = CO2) 19 24-32 L [facility] HospitalGqkylzvQPEPQSJGT5891-08-49 09:47:00 Test Item Value Reference Range Interpretation Comments Creatinine Lvl (test code = Creatinine 0.3 0.5-1.4 L Lvl) [facility]YhrdhzqEZXNYMUYN6141-83-36 09:47:00 Test Item Value Reference Range Interpretation Comments Sodium Lvl (test code = Sodium Lvl) 137 135-145 N [facility] HospitalGbjkbjmFCOWABNLO3937-82-73 09:47:00 Test Item Value Reference Range Interpretation Comments Chloride Lvl (test code = Chloride Lvl) 103 95-109 N [facility] HospitalWxxitfbOSAQCCKNA5910-24-23 09:47:00 Test Item Value Reference Range Interpretation Comments Potassium Lvl (test code = Potassium 3.6 3.5-5.1 N Lvl) [facility] HospitalLsvwrpnUXWZCWARV7749-79-17 09:47:00 Test Item Value Reference Range Interpretation Comments Calcium Lvl (test code = Calcium Lvl) 7.9 8.5-10.5 L [facility] HospitalYpisxxzVRKMRIFRG5272-74-76 09:47:00 Test Item Value Reference Range Interpretation Comments AGAP (test code = AGAP) 18.6 10.0-20.0 N [facility] HospitalZylxryjKVBVVASUE0744-39-59 09:47:00 Test Item Value Reference Range Interpretation Comments Magnesium Lvl (test code = Magnesium 1.6 1.8-2.4 L Lvl) [facility]ThlmvbuQRROLGGNPX9618-00-21 09:47:00 Test Item Value Reference Range Interpretation Comments Basophils # (test code 0.0 See_Comment N [Aut omated message] The = Basophils #) system which generated this result tra nsmitted reference range : <=0.2. The reference r leo was not used to int erpret this result as normal/abnormal . [facility] CenterLucqygrEVHPHKXVXR7946-94-42 09:47:00 Test Item Value Reference Range Interpretation Comments Eosinophils (test code = 0.4 See_Comment N [A utomated message] The Eosinophils) system which ge nerated this result tra nsmitted reference range : <=4.0. The reference r leo was not used to int erpret this result as normal/abnormal . [facility] CenterNjoopbiBZZFUMDDOJ0699-05-38 09:47:00 Test Item Value Reference Range Interpretation Comments Basophils (test code = 0.5 See_Comment N [Aut omated message] The Basophils) system which ge nerated this result tra nsmitted reference range : <=1.0. The reference r leo was not used to int erpret this result as normal/abnormal . [facility] CenterOvnvlfrURUNVPNZCK2754-30-92 09:47:00 Test Item Value Reference Range Interpretation Comments Segs-Bands # (test code = Segs-Bands #) 5.9 1.5-8.1 N [facility] CenterYwgaftqUFRVBIBFBM7529-06-08 09:47:00 Test Item Value Reference Range Interpretation Comments Lymphocytes # (test code = Lymphocytes 1.2 1.0-5.5 N #) [facility] CenterZftolfpHTOLODUREF2925-01-65 09:47:00 Test Item Value Reference Range Interpretation Comments Monocytes # (test code 0.5 See_Comment N [Aut omated message] The = Monocytes #) system which generated this result tra nsmitted reference range : <=0.8. The reference r leo was not used to int erpret this result as normal/abnormal . [facility] CenterEdbeqskDQHZTHXJJY3661-96-72 09:47:00 Test Item Value Reference Range Interpretation Comments Eosinophils # (test code 0.0 See_Comment N [A utomated message] The = Eosinophils #) system whic h generated this result tra nsmitted reference range : <=0.5. The reference r leo was not used to int erpret this result as normal/abnormal . [facility] CenterFisiecuLANISFTENQ5398-19-18 09:47:00 Test Item Value Reference Range Interpretation Comments Segs (test code = Segs) 76.9 45.0-75.0 H [facility] CenterAxxfphnACSTTUQEMS7458-19-16 09:47:00 Test Item Value Reference Range Interpretation Comments Lymphocytes (test code = Lymphocytes) 15.9 20.0-40.0 L [facility] CenterItayuweJCZKFLVKMP4625-07-77 09:47:00 Test Item Value Reference Range Interpretation Comments Monocytes (test code = Monocytes) 6.3 2.0-12.0 N [facility] CenterCmwwflyGIYNYKZFWO2873-57-37 09:47:00 Test Item Value Reference Range Interpretation Comments MCV (test code = MCV) 82.8 81.0-99.0 N [facility] CenterFeemhidRMHVUGXNVI0933-60-85 09:47:00 Test Item Value Reference Range Interpretation Comments Hct (test code = Hct) 39.7 36.0-48.0 N [facility] CenterJrdbpvqEYELAIHGYN6281-55-53 09:47:00 Test Item Value Reference Range Interpretation Comments MCH (test code = MCH) 29.1 pg 27.0-31.0 N [facility] CenterIpvaelvNBGHNHOEJG8850-69-12 09:47:00 Test Item Value Reference Range Interpretation Comments Hgb (test code = Hgb) 14.0 12.0-16.0 N [facility] CenterKrquajvJAQNVZJDPH6878-68-98 09:47:00 Test Item Value Reference Range Interpretation Comments MCHC (test code = MCHC) 35.2 32.0-36.0 N [facility] CenterSuwijexYHTIAUDOUI8347-78-96 09:47:00 Test Item Value Reference Range Interpretation Comments RDW (test code = RDW) 13.9 11.5-14.5 N [facility] CenterWxuznriJPSBAGZVDP3656-98-69 09:47:00 Test Item Value Reference Range Interpretation Comments Platelet (test code = Platelet) 160 133-450 N [facility] CenterIbimeutMXKSLUBCUM3786-65-84 09:47:00 Test Item Value Reference Range Interpretation Comments MPV (test code = MPV) 11.9 7.4-10.4 H [facility] CenterWsumrnbEIFNWMKSXF3344-18-18 09:47:00 Test Item Value Reference Range Interpretation Comments WBC (test code = WBC) 7.7 3.7-10.4 N [facility] CenterNhcjvunEFABZSNHCO5943-57-65 09:47:00 Test Item Value Reference Range Interpretation Comments RBC (test code = RBC) 4.80 4.20-5.40 N [facility] HospitalOopcskuAUFMTMILM7741-51-51 10:28:00 Test Item Value Reference Range Interpretation Comments Phosphorus (test code = Phosphorus) 2.6 2.5-4.5 N [facility] HospitalGayrpcaSTPVKMJYN7139-03-71 10:28:00 Test Item Value Reference Range Interpretation Comments Magnesium Lvl (test code = Magnesium 1.8 1.8-2.4 N Lvl) [facility] HospitalFxyqlajOEQNQLKCH3177-86-67 10:28:00 Test Item Value Reference Range Interpretation Comments Potassium Lvl (test code = Potassium 3.7 3.5-5.1 N Lvl) [facility] HospitalBwcbywwPPSMLKGCT1452-45-62 10:28:00 Test Item Value Reference Range Interpretation Comments Sodium Lvl (test code = Sodium Lvl) 137 135-145 N [facility] HospitalPdevobuZHUZXAIEF6549-92-94 10:28:00 Test Item Value Reference Range Interpretation Comments Creatinine Lvl (test code = Creatinine 0.6 0.5-1.4 N Lvl) [facility] HospitalMfjffggTUFGAKVEY2911-07-97 10:28:00 Test Item Value Reference Range Interpretation Comments BUN (test code = BUN) 16 7-22 N [facility] HospitalAueoikfVBCUDIYBB6106-23-59 10:28:00 Test Item Value Reference Range Interpretation Comments Glucose Lvl (test code = Glucose Lvl) 200 [facility] HospitalFxsspthKHYLHGXYZ4790-87-58 10:28:00 Test Item Value Reference Range Interpretation Comments Calcium Lvl (test code = Calcium Lvl) 8.3 8.5-10.5 L [facility] HospitalBhzrqbbSDEQLJNRQ5389-72-80 10:28:00 Test Item Value Reference Range Interpretation Comments AGAP (test code = AGAP) 19.7 10.0-20.0 N [facility] HospitalTmrhshbCDDURUUVU0103-13-28 10:28:00 Test Item Value Reference Range Interpretation Comments Chloride Lvl (test code = Chloride Lvl) 99 95-109 N [facility] HospitalPydqzyfKYDZSLJBV0183-71-54 10:28:00 Test Item Value Reference Range Interpretation Comments CO2 (test code = CO2) 22 24-32 L [facility] CenterAorswxaFPCNWFLCTG6434-85-00 10:28:00 Test Item Value Reference Range Interpretation Comments Platelet (test code = Platelet) 172 133-450 N [facility] CenterYnddyeqNCSZOBEXKR8555-71-12 10:28:00 Test Item Value Reference Range Interpretation Comments MPV (test code = MPV) 12.0 7.4-10.4 H [facility] CenterHpttufoWJBXQXIZVM5121-22-97 10:28:00 Test Item Value Reference Range Interpretation Comments WBC (test code = WBC) 7.3 3.7-10.4 N [facility] CenterClkjgzjVGALLJCVNQ6770-27-07 10:28:00 Test Item Value Reference Range Interpretation Comments RDW (test code = RDW) 14.6 11.5-14.5 H [facility] CenterAnqpntdMALDIICHWW6285-27-12 10:28:00 Test Item Value Reference Range Interpretation Comments MCHC (test code = MCHC) 35.0 32.0-36.0 N [facility] CenterJkspnojWDVWTREDAQ8092-90-90 10:28:00 Test Item Value Reference Range Interpretation Comments RBC (test code = RBC) 4.54 4.20-5.40 N [facility] CenterEmhktomFHONZOUVUZ5904-38-67 10:28:00 Test Item Value Reference Range Interpretation Comments Hct (test code = Hct) 37.6 36.0-48.0 N [facility] CenterVndnlmjBJKWIWEOQA4867-02-97 10:28:00 Test Item Value Reference Range Interpretation Comments MCV (test code = MCV) 82.9 81.0-99.0 N [facility] CenterDvjwlvqPKODHNDYEE7576-09-25 10:28:00 Test Item Value Reference Range Interpretation Comments MCH (test code = MCH) 29.0 pg 27.0-31.0 N [facility] CenterSiggcvpRXAGLMXRSZ0784-58-83 10:28:00 Test Item Value Reference Range Interpretation Comments Hgb (test code = Hgb) 13.2 12.0-16.0 N [facility] CenterLctauljSQCCTWVWYF9771-01-33 10:28:00 Test Item Value Reference Range Interpretation Comments Elliptocyte (test code = Slight A Elliptocyte) *ABN*(08/21/2011 04:28:00) [facility] CenterTtqgjfeIHXDNNUBYR0616-51-40 10:28:00 Test Item Value Reference Range Interpretation Comments Polychrom (test code = Slight (08/21/2011 N Polychrom) 04:28:00) [facility] CenterSqftithTYIBICIZHJ6388-93-90 10:28:00 Test Item Value Reference Range Interpretation Comments Basophils # (test code 0.0 See_Comment N [Aut omated message] The = Basophils #) system which generated this result tra nsmitted reference range : <=0.2. The reference r leo was not used to int erpret this result as normal/abnormal . [facility] CenterZirhffwOWIHSKWEAU9778-94-79 10:28:00 Test Item Value Reference Range Interpretation Comments Hypochrom (test code = Slight (08/21/2011 N Hypochrom) 04:28:00) [facility] CenterDiqeqeoGZBLTUXFGL9757-57-84 10:28:00 Test Item Value Reference Range Interpretation Comments Monocytes # (test code 0.6 See_Comment N [Aut omated message] The = Monocytes #) system which generated this result tra nsmitted reference range : <=0.8. The reference r leo was not used to int erpret this result as normal/abnormal . [facility] CenterZbmmpqsAZXRMYQCZG7178-12-43 10:28:00 Test Item Value Reference Range Interpretation Comments Eosinophils # (test code 0.0 See_Comment N [A utomated message] The = Eosinophils #) system whic h generated this result tra nsmitted reference range : <=0.5. The reference r leo was not used to int erpret this result as normal/abnormal . [facility] CenterBnzpecnWGVZLVDACT9221-41-85 10:28:00 Test Item Value Reference Range Interpretation Comments Segs-Bands # (test code = Segs-Bands #) 5.3 1.5-8.1 N [facility] CenterNafzeohOICYWUNWYI9696-36-19 10:28:00 Test Item Value Reference Range Interpretation Comments Lymphocytes # (test code = Lymphocytes 1.3 1.0-5.5 N #) [facility] CenterUtffdmrJVONILAOOQ9908-11-46 10:28:00 Test Item Value Reference Range Interpretation Comments Basophils (test code = 0.5 See_Comment N [Aut omated message] The Basophils) system which ge nerated this result tra nsmitted reference range : <=1.0. The reference r leo was not used to int erpret this result as normal/abnormal . [facility] CenterNyetuyxNMMIXHBNLR9799-33-24 10:28:00 Test Item Value Reference Range Interpretation Comments Monocytes (test code = Monocytes) 8.5 2.0-12.0 N [facility] CenterEblmvbtBWSGHYRCHQ2306-29-49 10:28:00 Test Item Value Reference Range Interpretation Comments Eosinophils (test code = 0.3 See_Comment N [A utomated message] The Eosinophils) system which ge nerated this result tra nsmitted reference range : <=4.0. The reference r leo was not used to int erpret this result as normal/abnormal . [facility] CenterZivmrncFAJNFNVYCG9998-87-63 10:28:00 Test Item Value Reference Range Interpretation Comments Lymphocytes (test code = Lymphocytes) 17.3 20.0-40.0 L [facility] CenterFejvnetSIPSOVRNEW3345-29-30 10:28:00 Test Item Value Reference Range Interpretation Comments Segs (test code = Segs) 73.4 45.0-75.0 N [facility] HospitalNrxxzswDPHLTOGWM1746-59-09 10:28:00 Test Item Value Reference Range Interpretation Comments Phosphorus (test code = Phosphorus) 2.6 2.5-4.5 N [facility] HospitalPlyigonICRXQAWYA1407-09-82 10:28:00 Test Item Value Reference Range Interpretation Comments Magnesium Lvl (test code = Magnesium 1.8 1.8-2.4 N Lvl) [facility] HospitalSqgedyyLENUQTDRB1401-04-83 10:28:00 Test Item Value Reference Range Interpretation Comments Potassium Lvl (test code = Potassium 3.7 3.5-5.1 N Lvl) [facility] HospitalFybdfcbNNXTUFTIS1239-77-98 10:28:00 Test Item Value Reference Range Interpretation Comments Sodium Lvl (test code = Sodium Lvl) 137 135-145 N [facility] HospitalNiwznvuESHRGQNEZ1050-52-89 10:28:00 Test Item Value Reference Range Interpretation Comments Creatinine Lvl (test code = Creatinine 0.6 0.5-1.4 N Lvl) [facility] HospitalRjkxqiwRZTGGKDDJ0042-72-62 10:28:00 Test Item Value Reference Range Interpretation Comments BUN (test code = BUN) 16 7-22 N [facility] HospitalJvgrqoaXMAVBZQKO6814-80-92 10:28:00 Test Item Value Reference Range Interpretation Comments Glucose Lvl (test code = Glucose Lvl) 200 [facility] HospitalGjxhkdeFBNLNNKEV8045-44-10 10:28:00 Test Item Value Reference Range Interpretation Comments Calcium Lvl (test code = Calcium Lvl) 8.3 8.5-10.5 L [facility] HospitalAstyoqrIRRIJUORS8934-22-08 10:28:00 Test Item Value Reference Range Interpretation Comments AGAP (test code = AGAP) 19.7 10.0-20.0 N [facility] HospitalAtqilkzCFIKVJPPH4664-06-45 10:28:00 Test Item Value Reference Range Interpretation Comments Chloride Lvl (test code = Chloride Lvl) 99 95-109 N [facility] HospitalKmarmrqMSCGSZIAL5824-01-63 10:28:00 Test Item Value Reference Range Interpretation Comments CO2 (test code = CO2) 22 24-32 L [facility] CenterDeodbirKWIHVBKLCV9125-10-36 10:28:00 Test Item Value Reference Range Interpretation Comments Platelet (test code = Platelet) 172 133-450 N [facility] CenterCdkkhjhFMWLYQAQAG9391-73-04 10:28:00 Test Item Value Reference Range Interpretation Comments MPV (test code = MPV) 12.0 7.4-10.4 H [facility] CenterQxmzrmyMZKZMJYJFA0862-81-69 10:28:00 Test Item Value Reference Range Interpretation Comments WBC (test code = WBC) 7.3 3.7-10.4 N [facility] CenterKuktawyQHYFSPOJAF5149-97-47 10:28:00 Test Item Value Reference Range Interpretation Comments RDW (test code = RDW) 14.6 11.5-14.5 H [facility] CenterDzkqjvqCWAHNUCBCH3547-20-65 10:28:00 Test Item Value Reference Range Interpretation Comments MCHC (test code = MCHC) 35.0 32.0-36.0 N [facility] CenterAzsjoouBUDDFFUTHZ6702-46-30 10:28:00 Test Item Value Reference Range Interpretation Comments RBC (test code = RBC) 4.54 4.20-5.40 N [facility] CenterYuthploTTVPYYWQCJ1297-55-99 10:28:00 Test Item Value Reference Range Interpretation Comments Hct (test code = Hct) 37.6 36.0-48.0 N [facility] CenterYiheudlAKLXZKKYJR3841-62-60 10:28:00 Test Item Value Reference Range Interpretation Comments MCV (test code = MCV) 82.9 81.0-99.0 N [facility] CenterVjccacpZWHBZZKUFB1514-53-02 10:28:00 Test Item Value Reference Range Interpretation Comments MCH (test code = MCH) 29.0 pg 27.0-31.0 N [facility] CenterYtfcighDYOVBRNIOM8170-35-70 10:28:00 Test Item Value Reference Range Interpretation Comments Hgb (test code = Hgb) 13.2 12.0-16.0 N [facility] CenterSfjfoanMFUDFAPBBJ0316-40-12 10:28:00 Test Item Value Reference Range Interpretation Comments Elliptocyte (test code = Slight A Elliptocyte) *ABN*(08/21/2011 04:28:00) [facility] CenterWirhrlxUPVVJCBQKV2040-23-19 10:28:00 Test Item Value Reference Range Interpretation Comments Polychrom (test code = Slight (08/21/2011 N Polychrom) 04:28:00) [facility] CenterFlihtglOMHQSZLQKW1921-10-83 10:28:00 Test Item Value Reference Range Interpretation Comments Basophils # (test code 0.0 See_Comment N [Aut omated message] The = Basophils #) system which generated this result tra nsmitted reference range : <=0.2. The reference r leo was not used to int erpret this result as normal/abnormal . [facility] CenterGeofyzlPABOSUCBOM3421-73-05 10:28:00 Test Item Value Reference Range Interpretation Comments Hypochrom (test code = Slight (08/21/2011 N Hypochrom) 04:28:00) [facility] CenterJrpovxxONNWSLIDRN9123-03-82 10:28:00 Test Item Value Reference Range Interpretation Comments Monocytes # (test code 0.6 See_Comment N [Aut omated message] The = Monocytes #) system which generated this result tra nsmitted reference range : <=0.8. The reference r leo was not used to int erpret this result as normal/abnormal . [facility] CenterQfzfxqqJFETJRGUEN3594-77-02 10:28:00 Test Item Value Reference Range Interpretation Comments Eosinophils # (test code 0.0 See_Comment N [A utomated message] The = Eosinophils #) system whic h generated this result tra nsmitted reference range : <=0.5. The reference r leo was not used to int erpret this result as normal/abnormal . [facility] CenterZpcmwloJBLCPKSNBZ2244-76-32 10:28:00 Test Item Value Reference Range Interpretation Comments Segs-Bands # (test code = Segs-Bands #) 5.3 1.5-8.1 N [facility] CenterMjiwrjsBNWDYBZJEZ1774-99-39 10:28:00 Test Item Value Reference Range Interpretation Comments Lymphocytes # (test code = Lymphocytes 1.3 1.0-5.5 N #) [facility] CenterAmeflneVMLUYEZHNJ0956-50-15 10:28:00 Test Item Value Reference Range Interpretation Comments Basophils (test code = 0.5 See_Comment N [Aut omated message] The Basophils) system which ge nerated this result tra nsmitted reference range : <=1.0. The reference r leo was not used to int erpret this result as normal/abnormal . [facility] CenterFdakgylHQBNKGRRDG0082-40-19 10:28:00 Test Item Value Reference Range Interpretation Comments Monocytes (test code = Monocytes) 8.5 2.0-12.0 N [facility] CenterQjidvwoRSOVBNWIUN3259-99-87 10:28:00 Test Item Value Reference Range Interpretation Comments Eosinophils (test code = 0.3 See_Comment N [A utomated message] The Eosinophils) system which ge nerated this result tra nsmitted reference range : <=4.0. The reference r leo was not used to int erpret this result as normal/abnormal . [facility] CenterIgdjehmDWVLDMHZEL7725-46-89 10:28:00 Test Item Value Reference Range Interpretation Comments Lymphocytes (test code = Lymphocytes) 17.3 20.0-40.0 L [facility] CenterTdbrlnoMLEJVDLIKM1088-05-04 10:28:00 Test Item Value Reference Range Interpretation Comments Segs (test code = Segs) 73.4 45.0-75.0 N [facility] HospitalTnkqjzxUTNBLTSQL6398-02-45 10:28:00 Test Item Value Reference Range Interpretation Comments Phosphorus (test code = Phosphorus) 2.6 2.5-4.5 N [facility] HospitalBkqqiqdTMTVCJLOA4397-33-24 10:28:00 Test Item Value Reference Range Interpretation Comments Magnesium Lvl (test code = Magnesium 1.8 1.8-2.4 N Lvl) [facility] HospitalWwbdagrRZCRLCJYE5799-30-55 10:28:00 Test Item Value Reference Range Interpretation Comments Potassium Lvl (test code = Potassium 3.7 3.5-5.1 N Lvl) [facility] HospitalDbeuiaxMBIXDWJMD7735-34-49 10:28:00 Test Item Value Reference Range Interpretation Comments Sodium Lvl (test code = Sodium Lvl) 137 135-145 N [facility] HospitalEolhiykZCEMTVHUA3675-50-71 10:28:00 Test Item Value Reference Range Interpretation Comments Creatinine Lvl (test code = Creatinine 0.6 0.5-1.4 N Lvl) [facility] HospitalApamkiwWPRGAMMNQ3851-41-23 10:28:00 Test Item Value Reference Range Interpretation Comments BUN (test code = BUN) 16 7-22 N [facility] HospitalSiqrgfqTBXKBDIGZ9226-79-32 10:28:00 Test Item Value Reference Range Interpretation Comments Glucose Lvl (test code = Glucose Lvl) 200 [facility] HospitalOrhzichFNPAKWUXU5622-63-90 10:28:00 Test Item Value Reference Range Interpretation Comments Calcium Lvl (test code = Calcium Lvl) 8.3 8.5-10.5 L [facility] HospitalRavtaglFXUPMNCHJ5544-55-88 10:28:00 Test Item Value Reference Range Interpretation Comments AGAP (test code = AGAP) 19.7 10.0-20.0 N [facility] HospitalIntvvzcICHXJLUIW1161-86-78 10:28:00 Test Item Value Reference Range Interpretation Comments Chloride Lvl (test code = Chloride Lvl) 99 95-109 N [facility] HospitalAvbxgqxBGWINQBCN9592-53-90 10:28:00 Test Item Value Reference Range Interpretation Comments CO2 (test code = CO2) 22 24-32 L [facility] CenterZanntcgDSDFSQSOGL2630-96-04 10:28:00 Test Item Value Reference Range Interpretation Comments Platelet (test code = Platelet) 172 133-450 N [facility] CenterHxboddeXYPWMSMFHX8415-90-95 10:28:00 Test Item Value Reference Range Interpretation Comments MPV (test code = MPV) 12.0 7.4-10.4 H [facility] CenterGrpqyiqVGZIVNSTFT8711-82-17 10:28:00 Test Item Value Reference Range Interpretation Comments WBC (test code = WBC) 7.3 3.7-10.4 N [facility] CenterVkznuymXREANBTQML2348-21-40 10:28:00 Test Item Value Reference Range Interpretation Comments RDW (test code = RDW) 14.6 11.5-14.5 H [facility] CenterJqmjylmLVRPOSDGFA4168-13-90 10:28:00 Test Item Value Reference Range Interpretation Comments MCHC (test code = MCHC) 35.0 32.0-36.0 N [facility] CenterTsyedblZEACSCIJKH8809-18-36 10:28:00 Test Item Value Reference Range Interpretation Comments RBC (test code = RBC) 4.54 4.20-5.40 N [facility] CenterJmbwldvKVPYNUHHWA3028-63-44 10:28:00 Test Item Value Reference Range Interpretation Comments Hct (test code = Hct) 37.6 36.0-48.0 N [facility] CenterSywrpbyXBOWOLHYXK3240-30-68 10:28:00 Test Item Value Reference Range Interpretation Comments MCV (test code = MCV) 82.9 81.0-99.0 N [facility] CenterQgobaqfNICFSYWCPD0997-19-73 10:28:00 Test Item Value Reference Range Interpretation Comments MCH (test code = MCH) 29.0 pg 27.0-31.0 N [facility] CenterTvvovggXAJLSYFKRO7343-04-43 10:28:00 Test Item Value Reference Range Interpretation Comments Hgb (test code = Hgb) 13.2 12.0-16.0 N [facility] CenterOtgapuhBBUTSSDGAP8185-76-16 10:28:00 Test Item Value Reference Range Interpretation Comments Elliptocyte (test code = Slight A Elliptocyte) *ABN*(08/21/2011 04:28:00) [facility] CenterLjvhzpqJEZSMXXSFO1130-75-20 10:28:00 Test Item Value Reference Range Interpretation Comments Polychrom (test code = Slight (08/21/2011 N Polychrom) 04:28:00) [facility] CenterEvdoxwcPBESLQJGRG1986-15-93 10:28:00 Test Item Value Reference Range Interpretation Comments Basophils # (test code 0.0 See_Comment N [Aut omated message] The = Basophils #) system which generated this result tra nsmitted reference range : <=0.2. The reference r leo was not used to int erpret this result as normal/abnormal . [facility] CenterVjaonfcYFTHNAFMJC0718-62-75 10:28:00 Test Item Value Reference Range Interpretation Comments Hypochrom (test code = Slight (08/21/2011 N Hypochrom) 04:28:00) [facility] CenterNwukivxVBDTWCHKTU3900-65-56 10:28:00 Test Item Value Reference Range Interpretation Comments Monocytes # (test code 0.6 See_Comment N [Aut omated message] The = Monocytes #) system which generated this result tra nsmitted reference range : <=0.8. The reference r leo was not used to int erpret this result as normal/abnormal . [facility] CenterMcdgfsgKIGMWIXKRV7290-15-98 10:28:00 Test Item Value Reference Range Interpretation Comments Eosinophils # (test code 0.0 See_Comment N [A utomated message] The = Eosinophils #) system whic h generated this result tra nsmitted reference range : <=0.5. The reference r leo was not used to int erpret this result as normal/abnormal . [facility]OrquixyLRJOZMIJEM1907-57-09 10:28:00 Test Item Value Reference Range Interpretation Comments Segs-Bands # (test code = Segs-Bands #) 5.3 1.5-8.1 N [facility] CenterDpicbxgBGTPADLJWF3676-14-86 10:28:00 Test Item Value Reference Range Interpretation Comments Lymphocytes # (test code = Lymphocytes 1.3 1.0-5.5 N #) [facility] CenterYayzgbvQOAFEVOZYK4051-07-97 10:28:00 Test Item Value Reference Range Interpretation Comments Basophils (test code = 0.5 See_Comment N [Aut omated message] The Basophils) system which ge nerated this result tra nsmitted reference range : <=1.0. The reference r leo was not used to int erpret this result as normal/abnormal . [facility] CenterSgsqjmmNVUZHLHVPV8841-31-23 10:28:00 Test Item Value Reference Range Interpretation Comments Monocytes (test code = Monocytes) 8.5 2.0-12.0 N [facility] CenterNeyxxeaTUBWWQXTEP6749-75-69 10:28:00 Test Item Value Reference Range Interpretation Comments Eosinophils (test code = 0.3 See_Comment N [A utomated message] The Eosinophils) system which ge nerated this result tra nsmitted reference range : <=4.0. The reference r leo was not used to int erpret this result as normal/abnormal . [facility] CenterSvssdzrPRQLNBDBBV2700-09-11 10:28:00 Test Item Value Reference Range Interpretation Comments Lymphocytes (test code = Lymphocytes) 17.3 20.0-40.0 L [facility] CenterKilyfbvLRXGMCVCFT2737-21-60 10:28:00 Test Item Value Reference Range Interpretation Comments Segs (test code = Segs) 73.4 45.0-75.0 N [facility]DhasgrcZRZSWIPRG7301-34-24 10:28:00 Test Item Value Reference Range Interpretation Comments Phosphorus (test code = Phosphorus) 2.6 2.5-4.5 N [facility] HospitalXfpvuzyUVIBRMCEF1822-92-89 10:28:00 Test Item Value Reference Range Interpretation Comments Magnesium Lvl (test code = Magnesium 1.8 1.8-2.4 N Lvl) [facility] HospitalGcxlxzyFUNPSVXCA1783-40-55 10:28:00 Test Item Value Reference Range Interpretation Comments Potassium Lvl (test code = Potassium 3.7 3.5-5.1 N Lvl) [facility] HospitalWphkzuhHRIGDIMIG7742-49-73 10:28:00 Test Item Value Reference Range Interpretation Comments Sodium Lvl (test code = Sodium Lvl) 137 135-145 N [facility] HospitalRvknpciETLMVXTWK1647-76-72 10:28:00 Test Item Value Reference Range Interpretation Comments Creatinine Lvl (test code = Creatinine 0.6 0.5-1.4 N Lvl) [facility] HospitalAvpjgpjJHZRYIKUQ5402-14-98 10:28:00 Test Item Value Reference Range Interpretation Comments BUN (test code = BUN) 16 7-22 N [facility] HospitalZhzxrraQXKPIXMPM2845-13-58 10:28:00 Test Item Value Reference Range Interpretation Comments Glucose Lvl (test code = Glucose Lvl) 200 [facility] HospitalYionywrCCATVYJKG8178-63-96 10:28:00 Test Item Value Reference Range Interpretation Comments Calcium Lvl (test code = Calcium Lvl) 8.3 8.5-10.5 L [facility] HospitalCpncvrzLWLTNCYOG6089-42-95 10:28:00 Test Item Value Reference Range Interpretation Comments AGAP (test code = AGAP) 19.7 10.0-20.0 N [facility] HospitalKjbwlvuAJASTNQRW8359-89-21 10:28:00 Test Item Value Reference Range Interpretation Comments Chloride Lvl (test code = Chloride Lvl) 99 95-109 N [facility] HospitalVuihhvrBXBOVXEPM6183-93-77 10:28:00 Test Item Value Reference Range Interpretation Comments CO2 (test code = CO2) 22 24-32 L [facility] CenterJwnkaccLBMIJKKJDN2041-74-32 10:28:00 Test Item Value Reference Range Interpretation Comments Platelet (test code = Platelet) 172 133-450 N [facility] CenterNhkojheMWGEYIMIUS2875-07-16 10:28:00 Test Item Value Reference Range Interpretation Comments MPV (test code = MPV) 12.0 7.4-10.4 H [facility] CenterQbqmkitRUXAVUVAWR4233-34-16 10:28:00 Test Item Value Reference Range Interpretation Comments WBC (test code = WBC) 7.3 3.7-10.4 N [facility] CenterUwyowgvOWUEBBOHOT5618-43-80 10:28:00 Test Item Value Reference Range Interpretation Comments RDW (test code = RDW) 14.6 11.5-14.5 H [facility] CenterYnseukvMZAYHUETDD2065-65-31 10:28:00 Test Item Value Reference Range Interpretation Comments MCHC (test code = MCHC) 35.0 32.0-36.0 N [facility] CenterMeszeprIQNWQELRJU2479-12-47 10:28:00 Test Item Value Reference Range Interpretation Comments RBC (test code = RBC) 4.54 4.20-5.40 N [facility] CenterQormiejFFKQVSKNUS5955-88-96 10:28:00 Test Item Value Reference Range Interpretation Comments Hct (test code = Hct) 37.6 36.0-48.0 N [facility] CenterMfaucbrXGOJCDZZIO5703-15-43 10:28:00 Test Item Value Reference Range Interpretation Comments MCV (test code = MCV) 82.9 81.0-99.0 N [facility] CenterUgabgcrRDDENGNOMR3098-98-89 10:28:00 Test Item Value Reference Range Interpretation Comments MCH (test code = MCH) 29.0 pg 27.0-31.0 N [facility] CenterAcyejrlNRPQBOLBDK0015-39-14 10:28:00 Test Item Value Reference Range Interpretation Comments Hgb (test code = Hgb) 13.2 12.0-16.0 N [facility] CenterInjxdvhVMPIQVQCXR7296-99-35 10:28:00 Test Item Value Reference Range Interpretation Comments Elliptocyte (test code = Slight A Elliptocyte) *ABN*(08/21/2011 04:28:00) [facility] CenterQtmlivnEWTZDHDRKE2009-26-49 10:28:00 Test Item Value Reference Range Interpretation Comments Polychrom (test code = Slight (08/21/2011 N Polychrom) 04:28:00) [facility] CenterYrpjwdwRCGPQBHMFL8171-07-24 10:28:00 Test Item Value Reference Range Interpretation Comments Basophils # (test code 0.0 See_Comment N [Aut omated message] The = Basophils #) system which generated this result tra nsmitted reference range : <=0.2. The reference r leo was not used to int erpret this result as normal/abnormal . [facility] CenterOwxewohDBDVPNUPNX0164-22-92 10:28:00 Test Item Value Reference Range Interpretation Comments Hypochrom (test code = Slight (08/21/2011 N Hypochrom) 04:28:00) [facility] CenterKuzluiiLIIUIPHWTP1940-05-78 10:28:00 Test Item Value Reference Range Interpretation Comments Monocytes # (test code 0.6 See_Comment N [Aut omated message] The = Monocytes #) system which generated this result tra nsmitted reference range : <=0.8. The reference r leo was not used to int erpret this result as normal/abnormal . [facility] CenterXfbvuuaGMWGWPGVNH6478-06-23 10:28:00 Test Item Value Reference Range Interpretation Comments Eosinophils # (test code 0.0 See_Comment N [A utomated message] The = Eosinophils #) system whic h generated this result tra nsmitted reference range : <=0.5. The reference r leo was not used to int erpret this result as normal/abnormal . [facility] CenterNadtoivNTJQTBHSZO1437-20-70 10:28:00 Test Item Value Reference Range Interpretation Comments Segs-Bands # (test code = Segs-Bands #) 5.3 1.5-8.1 N [facility] CenterBzxueijIXLBIYICTH7813-14-52 10:28:00 Test Item Value Reference Range Interpretation Comments Lymphocytes # (test code = Lymphocytes 1.3 1.0-5.5 N #) [facility] CenterBknbexxNNPAQTUQSJ5115-67-67 10:28:00 Test Item Value Reference Range Interpretation Comments Basophils (test code = 0.5 See_Comment N [Aut omated message] The Basophils) system which ge nerated this result tra nsmitted reference range : <=1.0. The reference r leo was not used to int erpret this result as normal/abnormal . [facility] CenterHdyagijCJEYEZQZVM1872-56-14 10:28:00 Test Item Value Reference Range Interpretation Comments Monocytes (test code = Monocytes) 8.5 2.0-12.0 N [facility] CenterEvfkdxfNXILSLADFP1438-60-94 10:28:00 Test Item Value Reference Range Interpretation Comments Eosinophils (test code = 0.3 See_Comment N [A utomated message] The Eosinophils) system which ge nerated this result tra nsmitted reference range : <=4.0. The reference r leo was not used to int erpret this result as normal/abnormal . [facility] CenterDttylzsGGNHVITCXK0715-05-25 10:28:00 Test Item Value Reference Range Interpretation Comments Lymphocytes (test code = Lymphocytes) 17.3 20.0-40.0 L [facility] CenterAglimmaHGGJIDCKND0124-87-61 10:28:00 Test Item Value Reference Range Interpretation Comments Segs (test code = Segs) 73.4 45.0-75.0 N [facility] HospitalUfxaxytQVCSWLIAG3728-81-72 10:28:00 Test Item Value Reference Range Interpretation Comments Phosphorus (test code = Phosphorus) 2.6 2.5-4.5 N [facility] HospitalRyloavhLSCTUCQGJ3464-23-62 10:28:00 Test Item Value Reference Range Interpretation Comments Magnesium Lvl (test code = Magnesium 1.8 1.8-2.4 N Lvl) [facility] HospitalTjvzyzyJHHXFSRSQ2776-50-78 10:28:00 Test Item Value Reference Range Interpretation Comments Potassium Lvl (test code = Potassium 3.7 3.5-5.1 N Lvl) [facility] HospitalVkovwjqMRYITGEPK6841-20-85 10:28:00 Test Item Value Reference Range Interpretation Comments Sodium Lvl (test code = Sodium Lvl) 137 135-145 N [facility] HospitalFnforsuGTMOUUDCC9932-86-25 10:28:00 Test Item Value Reference Range Interpretation Comments Creatinine Lvl (test code = Creatinine 0.6 0.5-1.4 N Lvl) [facility] HospitalKakmalzNKNJBPBDS4981-07-57 10:28:00 Test Item Value Reference Range Interpretation Comments BUN (test code = BUN) 16 7-22 N [facility] HospitalNjrifvhMVHEIFNOX2742-29-79 10:28:00 Test Item Value Reference Range Interpretation Comments Glucose Lvl (test code = Glucose Lvl) 200 [facility] HospitalQwaarxbQTFGPFOCK0113-27-20 10:28:00 Test Item Value Reference Range Interpretation Comments Calcium Lvl (test code = Calcium Lvl) 8.3 8.5-10.5 L [facility] HospitalRiovmzgVSBOMFBUA7508-10-61 10:28:00 Test Item Value Reference Range Interpretation Comments AGAP (test code = AGAP) 19.7 10.0-20.0 N [facility] HospitalEppnrjkWGTYHVOLB0445-18-89 10:28:00 Test Item Value Reference Range Interpretation Comments Chloride Lvl (test code = Chloride Lvl) 99 95-109 N [facility] HospitalLbshdzeYQQNJCQRY5962-58-83 10:28:00 Test Item Value Reference Range Interpretation Comments CO2 (test code = CO2) 22 24-32 L [facility] CenterRmoqmezLFWUBFKFQH0961-09-90 10:28:00 Test Item Value Reference Range Interpretation Comments Platelet (test code = Platelet) 172 133-450 N [facility] CenterXzxjuuzOLSXCZHKCC8912-66-95 10:28:00 Test Item Value Reference Range Interpretation Comments MPV (test code = MPV) 12.0 7.4-10.4 H [facility] CenterQyevvlnXXONPWYRAF3176-53-05 10:28:00 Test Item Value Reference Range Interpretation Comments WBC (test code = WBC) 7.3 3.7-10.4 N [facility] CenterPefgcmiYTMYZXHRDF9982-92-10 10:28:00 Test Item Value Reference Range Interpretation Comments RDW (test code = RDW) 14.6 11.5-14.5 H [facility] CenterUpzlteuBQSFNUBDDZ5696-86-50 10:28:00 Test Item Value Reference Range Interpretation Comments MCHC (test code = MCHC) 35.0 32.0-36.0 N [facility] CenterUvhgkrsSXLTJKJGJM7915-92-48 10:28:00 Test Item Value Reference Range Interpretation Comments RBC (test code = RBC) 4.54 4.20-5.40 N [facility] CenterLgxiyauEPYEYCLHWQ6587-15-51 10:28:00 Test Item Value Reference Range Interpretation Comments Hct (test code = Hct) 37.6 36.0-48.0 N [facility] CenterXhnzmxyQDDWUDYYFQ0111-66-24 10:28:00 Test Item Value Reference Range Interpretation Comments MCV (test code = MCV) 82.9 81.0-99.0 N [facility] CenterFosiaekCMORJIFZUN9509-63-42 10:28:00 Test Item Value Reference Range Interpretation Comments MCH (test code = MCH) 29.0 pg 27.0-31.0 N [facility] CenterWofljwfNBFOOUHMOY6998-66-57 10:28:00 Test Item Value Reference Range Interpretation Comments Hgb (test code = Hgb) 13.2 12.0-16.0 N [facility] CenterGvsmsglJAZEJAQETA5724-84-21 10:28:00 Test Item Value Reference Range Interpretation Comments Elliptocyte (test code = Slight A Elliptocyte) *ABN*(08/21/2011 04:28:00) [facility] CenterKobdstlXWYINECDEV1968-54-66 10:28:00 Test Item Value Reference Range Interpretation Comments Polychrom (test code = Slight (08/21/2011 N Polychrom) 04:28:00) [facility] CenterEcgcfnlTPULGJQPHX8138-36-84 10:28:00 Test Item Value Reference Range Interpretation Comments Basophils # (test code 0.0 See_Comment N [Aut omated message] The = Basophils #) system which generated this result tra nsmitted reference range : <=0.2. The reference r leo was not used to int erpret this result as normal/abnormal . [facility] CenterUernqzlZKBNJZPTTW3309-55-27 10:28:00 Test Item Value Reference Range Interpretation Comments Hypochrom (test code = Slight (08/21/2011 N Hypochrom) 04:28:00) [facility] CenterWhhdztnDQKHDWKZHZ3066-95-56 10:28:00 Test Item Value Reference Range Interpretation Comments Monocytes # (test code 0.6 See_Comment N [Aut omated message] The = Monocytes #) system which generated this result tra nsmitted reference range : <=0.8. The reference r leo was not used to int erpret this result as normal/abnormal . [facility] CenterBwvrlwoHVBDKADFVE3794-89-24 10:28:00 Test Item Value Reference Range Interpretation Comments Eosinophils # (test code 0.0 See_Comment N [A utomated message] The = Eosinophils #) system whic h generated this result tra nsmitted reference range : <=0.5. The reference r leo was not used to int erpret this result as normal/abnormal . [facility] CenterRxqryqdAVPQXESDNF9892-71-91 10:28:00 Test Item Value Reference Range Interpretation Comments Segs-Bands # (test code = Segs-Bands #) 5.3 1.5-8.1 N [facility] CenterCpdtihnZIZFWLLYZZ8884-42-75 10:28:00 Test Item Value Reference Range Interpretation Comments Lymphocytes # (test code = Lymphocytes 1.3 1.0-5.5 N #) [facility] CenterUewowlqDUCZVZRQNR8419-78-44 10:28:00 Test Item Value Reference Range Interpretation Comments Basophils (test code = 0.5 See_Comment N [Aut omated message] The Basophils) system which ge nerated this result tra nsmitted reference range : <=1.0. The reference r leo was not used to int erpret this result as normal/abnormal . [facility] CenterFpsykaqPIZJLOPGZF9682-44-20 10:28:00 Test Item Value Reference Range Interpretation Comments Monocytes (test code = Monocytes) 8.5 2.0-12.0 N [facility] CenterCkkbuzuFEVWCKPRWM3253-00-91 10:28:00 Test Item Value Reference Range Interpretation Comments Eosinophils (test code = 0.3 See_Comment N [A utomated message] The Eosinophils) system which ge nerated this result tra nsmitted reference range : <=4.0. The reference r leo was not used to int erpret this result as normal/abnormal . [facility] CenterLhydgngAOYLKARUYW5440-25-17 10:28:00 Test Item Value Reference Range Interpretation Comments Lymphocytes (test code = Lymphocytes) 17.3 20.0-40.0 L [facility]ApnddmdCHHOJNCXOK8621-12-14 10:28:00 Test Item Value Reference Range Interpretation Comments Segs (test code = Segs) 73.4 45.0-75.0 N [facility] GLUCOSE ZBALYSU8118-52-46 07:47:00 Test Item Value Reference Range Interpretation Comments Comment2 (test code = Comment2) Verify w/Lab [facility] GLUCOSE JLYAOGM6118-42-92 07:47:00 Test Item Value Reference Range Interpretation Comments Comment2 (test code = Comment2) Verify w/Lab [facility] GLUCOSE ITNNONM4821-88-70 07:47:00 Test Item Value Reference Range Interpretation Comments Comment2 (test code = Comment2) Verify w/Lab [facility] GLUCOSE UVIPJIK5502-97-50 07:47:00 Test Item Value Reference Range Interpretation Comments Comment2 (test code = Comment2) Verify w/Lab [facility] GLUCOSE DCEXUET8146-12-70 07:47:00 Test Item Value Reference Range Interpretation Comments Comment2 (test code = Comment2) [facility]Lab [facility]GbmtgtxKAEIUVIXK8236-24-56 21:58:00 Test Item Value Reference Range Interpretation Comments S Preg (test code = S Negative (08/19/2011 N Preg) 15:58:00) [facility]WtzykzjLHMFXWEBG6319-74-33 21:58:00 Test Item Value Reference Range Interpretation Comments Lipase Lvl (test code = Lipase Lvl) 169 73-393 N [facility] HospitalFfsikvxLCDBULPUG3247-29-47 21:58:00 Test Item Value Reference Range Interpretation Comments ALT (test code = ALT) 54 See_Comment N [Auto mated message] The system which ge nerated this result transmit rohit reference range : <=65. The reference range was not used to interpr et this result as reji l/abnormal. [facility] HospitalYdmchcdPXNGHFRJE5125-05-75 21:58:00 Test Item Value Reference Range Interpretation Comments Alk Phos (test code = Alk Phos) 110 39-136 N [facility] HospitalFzounbeFGPMJYUTA6649-63-61 21:58:00 Test Item Value Reference Range Interpretation Comments Bili Direct (test code 0.1 See_Comment N [Aut omated message] The = Bili Direct) system which generated this result tra nsmitted reference range : <=0.3. The reference r leo was not used to int erpret this result as reji l/abnormal. [facility] HospitalIfdxgtbKOLMVXGXY3046-01-85 21:58:00 Test Item Value Reference Range Interpretation Comments Bili Total (test code = Bili Total) 0.9 0.2-1.3 N [facility] HospitalBjnopdrDUETILXAV5223-37-45 21:58:00 Test Item Value Reference Range Interpretation Comments Albumin Lvl (test code = Albumin Lvl) 4.4 3.5-5.0 N [facility] HospitalJsilfrjSKGYINVQM0416-94-22 21:58:00 Test Item Value Reference Range Interpretation Comments Total Protein (test code = Total 8.8 6.4-8.4 H Protein) [facility] HospitalWopxhjoVJTOOKKAJ7663-90-91 21:58:00 Test Item Value Reference Range Interpretation Comments Bili Indirect (test 0.8 See_Comment N [Automa rohit message] The code = Bili Indirect) system which generated this result tra nsmitted reference range : <=1.0. The reference r leo was not used to int erpret this result as normal/abnormal . [facility] HospitalLlkptugBBSTWDUZC4768-69-88 21:58:00 Test Item Value Reference Range Interpretation Comments AST (test code = AST) 36 See_Comment N [Auto mated message] The system which ge nerated this result transmit rohit reference range : <=37. The reference range was not used to interpr et this result as reji l/abnormal. [facility] HospitalQmuzisoSFAUELPQW9624-89-41 21:58:00 Test Item Value Reference Range Interpretation Comments Globulin (test code = Globulin) 4.4 2.0-4.0 H [facility] HospitalUvlhlivFLRFUUPXB7890-63-58 21:58:00 Test Item Value Reference Range Interpretation Comments A/G Ratio (test code = A/G Ratio) 1.0 0.7-1.6 N [facility]ZqrbpcnMFWWFWVWCZ5915-48-75 21:58:00 Test Item Value Reference Range Interpretation Comments UA Bacteria (test code Occasional /HPF N = UA Bacteria) (08/19/2011 15:58:00) [facility] NorthwestOpndirxVIWSLASMKS8132-97-74 21:58:00 Test Item Value Reference Range Interpretation Comments UA RBC (test 3-5 /HPF See_Comment A [Automated mes pastor] code = UA RBC) *ABN*(08/19/2011 The syste m which 15:58:00) generated this result transmitted ref erence range: <=2. The reference range was not used to int erpret this result as normal/abnormal . [facility] CenterPrrgqtwANFRTLBQVT6646-73-12 21:58:00 Test Item Value Reference Range Interpretation Comments UA WBC (test code = 3 See_Comment [Automa rohit message] The UA WBC) system which ge nerated this result transmit rohit reference range : <=5. The reference range was not used to interpr et this result as reji l/abnormal. [facility] CenterFeerxmxUYXNXAYAVA7965-29-13 21:58:00 Test Item Value Reference Range Interpretation Comments UA Mucus (test code = Few /LPF (08/19/2011 N UA Mucus) 15:58:00) [facility] NorthwestJusvldjIQNXBADXME9266-05-19 21:58:00 Test Item Value Reference Range Interpretation Comments UA Amorph Destiny (test Occasional /HPF A code = UA Amorph *ABN*(08/19/2011 Destiny) 15:58:00) [facility] CenterRieclahRDUBGKVGQP6458-70-30 21:58:00 Test Item Value Reference Range Interpretation Comments UA Urobilinogen (test code = UA 0.2 0.1-1.0 N Urobilinogen) [facility] CenterZuwwyfdYLDDOJNYOX0609-49-11 21:58:00 Test Item Value Reference Range Interpretation Comments UA Sq Epi (test code = Rare /LPF (08/19/2011 N UA Sq Epi) 15:58:00) [facility] CenterUkocvpcFYEIMFKSCS4281-78-01 21:58:00 Test Item Value Reference Range Interpretation Comments Micro? (test code = Performed (08/19/2011 N Micro?) 15:58:00) [facility] CenterFbqqqguJRFLRAAWQC0506-98-98 21:58:00 Test Item Value Reference Range Interpretation Comments UA Leuk Est (test Negative (08/19/2011 N code = UA Leuk Est) 15:58:00) [facility] NorthwestNjqiopiNFDLCZIMSP2368-11-18 21:58:00 Test Item Value Reference Range Interpretation Comments UA Nitrite (test code Negative (08/19/2011 N = UA Nitrite) 15:58:00) [facility]naczpiZAMPBJAEJL7135-08-52 21:58:00 Test Item Value Reference Range Interpretation Comments UA pH (test code = UA pH) 5.5 1 5.0-8.0 N [facility]woodUdxsawqERRANBPJMY0201-08-36 21:58:00 Test Item Value Reference Range Interpretation Comments UA Blood (test code = Trace *ABN*(08/19/2011 A UA Blood) 15:58:00) [facility]woodSctrpezSJORVRVLQZ4213-85-11 21:58:00 Test Item Value Reference Range Interpretation Comments UA Bili (test code = Negative (08/19/2011 N UA Bili) 15:58:00) [facility]woodUoextduGVPNQNDBBJ7754-82-43 21:58:00 Test Item Value Reference Range Interpretation Comments UA Ketones (test code = 80 mg/dL A UA Ketones) *ABN*(08/19/2011 15:58:00) [facility]woodMdqosqaTTQJAWCWUI0897-63-16 21:58:00 Test Item Value Reference Range Interpretation Comments UA Glucose (test code = >=1000 mg/dL A UA Glucose) *ABN*(08/19/2011 15:58:00) [facility]woodLizhswkBURRRKPMVG5096-46-79 21:58:00 Test Item Value Reference Range Interpretation Comments UA Protein (test code Negative (08/19/2011 N = UA Protein) 15:58:00) [facility]woodVhnxabbMKRNXKEAQF3600-36-86 21:58:00 Test Item Value Reference Range Interpretation Comments UA Turbidity (test code Slight Cloudy N = UA Turbidity) (08/19/2011 15:58:00) [facility]woodUkpautoJHQDAXMHSE3668-99-23 21:58:00 Test Item Value Reference Range Interpretation Comments UA Spec Grav (test code = UA Spec 1.025 1 Grav) [facility]woodIcnaqxfBDPLTAFEHQ4158-24-61 21:58:00 Test Item Value Reference Range Interpretation Comments UA Color (test code = Yellow (08/19/2011 N UA Color) 15:58:00) [facility] HospitalIqbrwplFZUWFGDLC0941-81-60 21:58:00 Test Item Value Reference Range Interpretation Comments S Preg (test code = S Negative (08/19/2011 N Preg) 15:58:00) [facility] HospitalIcpztgmSEXWAGMNX9590-62-36 21:58:00 Test Item Value Reference Range Interpretation Comments Lipase Lvl (test code = Lipase Lvl) 169 73-393 N [facility] HospitalOqnezwfLKXTLEILJ2757-77-66 21:58:00 Test Item Value Reference Range Interpretation Comments ALT (test code = ALT) 54 See_Comment N [Auto mated message] The system which ge nerated this result transmit rohit reference range : <=65. The reference range was not used to interpr et this result as reji l/abnormal. [facility] HospitalKpexzszGGFAHMHYK2786-45-79 21:58:00 Test Item Value Reference Range Interpretation Comments Alk Phos (test code = Alk Phos) 110 39-136 N [facility] HospitalUyndtfgHVFBKPWZF8733-77-98 21:58:00 Test Item Value Reference Range Interpretation Comments Bili Direct (test code 0.1 See_Comment N [Aut omated message] The = Bili Direct) system which generated this result tra nsmitted reference range : <=0.3. The reference r leo was not used to int erpret this result as reji l/abnormal. [facility] HospitalKwachjoOFPDNMOKU6687-77-40 21:58:00 Test Item Value Reference Range Interpretation Comments Bili Total (test code = Bili Total) 0.9 0.2-1.3 N [facility] HospitalMobiuysGSLWDMQIR0360-35-94 21:58:00 Test Item Value Reference Range Interpretation Comments Albumin Lvl (test code = Albumin Lvl) 4.4 3.5-5.0 N [facility] HospitalJlidcpeHKAKYBEPI9711-92-26 21:58:00 Test Item Value Reference Range Interpretation Comments Total Protein (test code = Total 8.8 6.4-8.4 H Protein) [facility]YmfoaneBYOWQDXHO5462-21-40 21:58:00 Test Item Value Reference Range Interpretation Comments Bili Indirect (test 0.8 See_Comment N [Automa rohit message] The code = Bili Indirect) system which generated this result tra nsmitted reference range : <=1.0. The reference r leo was not used to int erpret this result as normal/abnormal . [facility] HospitalOodtxidVCFVHFEFF0022-86-30 21:58:00 Test Item Value Reference Range Interpretation Comments AST (test code = AST) 36 See_Comment N [Auto mated message] The system which ge nerated this result transmit rohit reference range : <=37. The reference range was not used to interpr et this result as reji l/abnormal. [facility] CenterZlsmgjuOMNEQJHDG6023-98-94 21:58:00 Test Item Value Reference Range Interpretation Comments Globulin (test code = Globulin) 4.4 2.0-4.0 H [facility] HospitalGdazsytIAFUOXBTD6613-26-33 21:58:00 Test Item Value Reference Range Interpretation Comments A/G Ratio (test code = A/G Ratio) 1.0 0.7-1.6 N [facility] NorthwestHqyelphCNARTYJQRW2276-97-72 21:58:00 Test Item Value Reference Range Interpretation Comments UA Bacteria (test code Occasional /HPF N = UA Bacteria) (08/19/2011 15:58:00) [facility]woodLwajgdnRRBQEYKRSS3977-67-35 21:58:00 Test Item Value Reference Range Interpretation Comments UA RBC (test 3-5 /HPF See_Comment A [Automated mes pastor] code = UA RBC) *ABN*(08/19/2011 The syste m which 15:58:00) generated this result transmitted ref erence range: <=2. The reference range was not used to int erpret this result as normal/abnormal . [facility] NorthwestQsicrmwEEUTDGAZIA1708-11-29 21:58:00 Test Item Value Reference Range Interpretation Comments UA WBC (test code = 3 See_Comment [Automa rohit message] The UA WBC) system which ge nerated this result transmit rohit reference range : <=5. The reference range was not used to interpr et this result as reji l/abnormal. [facility] CenterFypjuryVADOJCCNGZ4074-27-86 21:58:00 Test Item Value Reference Range Interpretation Comments UA Mucus (test code = Few /LPF (08/19/2011 N UA Mucus) 15:58:00) [facility] NorthwestHtnexiqCHXLPYDBKZ6819-13-74 21:58:00 Test Item Value Reference Range Interpretation Comments UA Amorph Destiny (test Occasional /HPF A code = UA Amorph *ABN*(08/19/2011 Destiny) 15:58:00) [facility] NorthwestKfjjojrPGGJFQGVSW1204-57-13 21:58:00 Test Item Value Reference Range Interpretation Comments UA Urobilinogen (test code = UA 0.2 0.1-1.0 N Urobilinogen) [facility] NorthwestKfpsxvkQVGQMUMKVO1971-21-19 21:58:00 Test Item Value Reference Range Interpretation Comments UA Sq Epi (test code = Rare /LPF (08/19/2011 N UA Sq Epi) 15:58:00) [facility] NorthwestDouzekkLMPIYICBFX1827-49-18 21:58:00 Test Item Value Reference Range Interpretation Comments Micro? (test code = Performed (08/19/2011 N Micro?) 15:58:00) [facility]woodKcdnbtzMMXFPAKWRE3960-53-19 21:58:00 Test Item Value Reference Range Interpretation Comments UA Leuk Est (test Negative (08/19/2011 N code = UA Leuk Est) 15:58:00) [facility]woodIwefyroBMAUOSRKPM0164-57-67 21:58:00 Test Item Value Reference Range Interpretation Comments UA Nitrite (test code Negative (08/19/2011 N = UA Nitrite) 15:58:00) [facility]woodFgkakzsQHBLLFZUUA7005-52-75 21:58:00 Test Item Value Reference Range Interpretation Comments UA pH (test code = UA pH) 5.5 1 5.0-8.0 N [facility]woodZjofmjtMHCRDYVVGA1886-78-15 21:58:00 Test Item Value Reference Range Interpretation Comments UA Blood (test code = Trace *ABN*(08/19/2011 A UA Blood) 15:58:00) [facility]woodZmkcaojQNTKJQXIQJ6695-88-65 21:58:00 Test Item Value Reference Range Interpretation Comments UA Bili (test code = Negative (08/19/2011 N UA Bili) 15:58:00) [facility]woodTblsmanAZYBLTEHXX0009-32-01 21:58:00 Test Item Value Reference Range Interpretation Comments UA Ketones (test code = 80 mg/dL A UA Ketones) *ABN*(08/19/2011 15:58:00) [facility]woodSiqzdulRHQGAQNTKJ3446-18-54 21:58:00 Test Item Value Reference Range Interpretation Comments UA Glucose (test code = >=1000 mg/dL A UA Glucose) *ABN*(08/19/2011 15:58:00) [facility]woodSjubuecTHIPITTRAK0283-53-53 21:58:00 Test Item Value Reference Range Interpretation Comments UA Protein (test code Negative (08/19/2011 N = UA Protein) 15:58:00) [facility] NorthwestSxcxmhcQJLDTXNYIU9806-07-95 21:58:00 Test Item Value Reference Range Interpretation Comments UA Turbidity (test code Slight Cloudy N = UA Turbidity) (08/19/2011 15:58:00) [facility] CenterXumyxqlXKFRWEZNZG8612-23-12 21:58:00 Test Item Value Reference Range Interpretation Comments UA Spec Grav (test code = UA Spec 1.025 1 Grav) [facility] CenterStwryypTKBNXSSQQF9531-61-64 21:58:00 Test Item Value Reference Range Interpretation Comments UA Color (test code = Yellow (08/19/2011 N UA Color) 15:58:00) [facility] HospitalVqdnadyWVPWFUSQN9003-92-35 21:58:00 Test Item Value Reference Range Interpretation Comments S Preg (test code = S Negative (08/19/2011 N Preg) 15:58:00) [facility] HospitalCpvklgiGYPGFSQFS3948-12-42 21:58:00 Test Item Value Reference Range Interpretation Comments Lipase Lvl (test code = Lipase Lvl) 169 73-393 N [facility] HospitalLjhurpmLFVGVIOSM6056-59-33 21:58:00 Test Item Value Reference Range Interpretation Comments ALT (test code = ALT) 54 See_Comment N [Auto mated message] The system which ge nerated this result transmit rohit reference range : <=65. The reference range was not used to interpr et this result as reji l/abnormal. [facility] HospitalUmqcyohZNKLQMVSR3977-41-68 21:58:00 Test Item Value Reference Range Interpretation Comments Alk Phos (test code = Alk Phos) 110 39-136 N [facility] HospitalOlktydpSRSKFSLPG0934-98-84 21:58:00 Test Item Value Reference Range Interpretation Comments Bili Direct (test code 0.1 See_Comment N [Aut omated message] The = Bili Direct) system which generated this result tra nsmitted reference range : <=0.3. The reference r leo was not used to int erpret this result as reji l/abnormal. [facility] CenterCcvjvvsKVDARHVKK2062-97-42 21:58:00 Test Item Value Reference Range Interpretation Comments Bili Total (test code = Bili Total) 0.9 0.2-1.3 N [facility] HospitalWdauswvXYGJJEYDK5427-87-40 21:58:00 Test Item Value Reference Range Interpretation Comments Albumin Lvl (test code = Albumin Lvl) 4.4 3.5-5.0 N [facility] HospitalKbgjddzCKCKESXAD6037-79-71 21:58:00 Test Item Value Reference Range Interpretation Comments Total Protein (test code = Total 8.8 6.4-8.4 H Protein) [facility] HospitalDhziprpQMYXXIRAT7432-65-59 21:58:00 Test Item Value Reference Range Interpretation Comments Bili Indirect (test 0.8 See_Comment N [Automa rohit message] The code = Bili Indirect) system which generated this result tra nsmitted reference range : <=1.0. The reference r leo was not used to int erpret this result as normal/abnormal . [facility] HospitalLjhpnxnZWQFUZVJQ2435-47-07 21:58:00 Test Item Value Reference Range Interpretation Comments AST (test code = AST) 36 See_Comment N [Auto mated message] The system which ge nerated this result transmit rohit reference range : <=37. The reference range was not used to interpr et this result as reji l/abnormal. [facility] HospitalLkcpfzgRGZQVJBKY4577-26-49 21:58:00 Test Item Value Reference Range Interpretation Comments Globulin (test code = Globulin) 4.4 2.0-4.0 H [facility] CenterFxbdixsEPSQGZLWI6876-68-95 21:58:00 Test Item Value Reference Range Interpretation Comments A/G Ratio (test code = A/G Ratio) 1.0 0.7-1.6 N [facility]woodQbypgstFBVUYGATOB0533-22-51 21:58:00 Test Item Value Reference Range Interpretation Comments UA Bacteria (test code Occasional /HPF N = UA Bacteria) (08/19/2011 15:58:00) [facility]woodVwobvpxIAHHHCHAST7011-53-26 21:58:00 Test Item Value Reference Range Interpretation Comments UA RBC (test 3-5 /HPF See_Comment A [Automated mes pastor] code = UA RBC) *ABN*(08/19/2011 The syste m which 15:58:00) generated this result transmitted ref erence range: <=2. The reference range was not used to int erpret this result as normal/abnormal . [facility] NorthwestKpouprlZSBSJZFOCN4157-84-25 21:58:00 Test Item Value Reference Range Interpretation Comments UA WBC (test code = 3 See_Comment [Automa rohit message] The UA WBC) system which ge nerated this result transmit rohit reference range : <=5. The reference range was not used to interpr et this result as reji l/abnormal. [facility] CenterEzqfxszKKQHTIBQIG6748-75-67 21:58:00 Test Item Value Reference Range Interpretation Comments UA Mucus (test code = Few /LPF (08/19/2011 N UA Mucus) 15:58:00) [facility] NorthwestJvihbwqTFXGZYGLIV6001-23-41 21:58:00 Test Item Value Reference Range Interpretation Comments UA Amorph Destiny (test Occasional /HPF A code = UA Amorph *ABN*(08/19/2011 Destiny) 15:58:00) [facility] NorthwestHmygclxRNQZNNPSII1493-13-56 21:58:00 Test Item Value Reference Range Interpretation Comments UA Urobilinogen (test code = UA 0.2 0.1-1.0 N Urobilinogen) [facility] NorthwestHholhnrTCEPTBAHZX5279-65-72 21:58:00 Test Item Value Reference Range Interpretation Comments UA Sq Epi (test code = Rare /LPF (08/19/2011 N UA Sq Epi) 15:58:00) [facility] NorthwestNchtzzvPCQQTBWENX5905-93-49 21:58:00 Test Item Value Reference Range Interpretation Comments Micro? (test code = Performed (08/19/2011 N Micro?) 15:58:00) [facility] CenterXjaceueCRTWDERAGW9459-70-93 21:58:00 Test Item Value Reference Range Interpretation Comments UA Leuk Est (test Negative (08/19/2011 N code = UA Leuk Est) 15:58:00) [facility] NorthwestKjwuiblOYLSFPLBQN8979-23-24 21:58:00 Test Item Value Reference Range Interpretation Comments UA Nitrite (test code Negative (08/19/2011 N = UA Nitrite) 15:58:00) [facility] CenterGhkuflySUPAKAZBWX0278-93-79 21:58:00 Test Item Value Reference Range Interpretation Comments UA pH (test code = UA pH) 5.5 1 5.0-8.0 N [facility] CenterDohbgogYPYKOJCPWO5103-69-37 21:58:00 Test Item Value Reference Range Interpretation Comments UA Blood (test code = Trace *ABN*(08/19/2011 A UA Blood) 15:58:00) [facility] CenterDrukqooBLLQDAEUHT8325-03-85 21:58:00 Test Item Value Reference Range Interpretation Comments UA Bili (test code = Negative (08/19/2011 N UA Bili) 15:58:00) [facility] NorthwestWwqcntiCGFWVVVKGB3916-95-67 21:58:00 Test Item Value Reference Range Interpretation Comments UA Ketones (test code = 80 mg/dL A UA Ketones) *ABN*(08/19/2011 15:58:00) [facility]woodFkesviwBEVUHAZDFI0863-42-10 21:58:00 Test Item Value Reference Range Interpretation Comments UA Glucose (test code = >=1000 mg/dL A UA Glucose) *ABN*(08/19/2011 15:58:00) [facility]woodYniiwckPOQMLCEPJW2515-13-92 21:58:00 Test Item Value Reference Range Interpretation Comments UA Protein (test code Negative (08/19/2011 N = UA Protein) 15:58:00) [facility] KingwoodYhbitotJYALDELGCH4269-73-52 21:58:00 Test Item Value Reference Range Interpretation Comments UA Turbidity (test code Slight Cloudy N = UA Turbidity) (08/19/2011 15:58:00) [facility]woodEujndzvOGWVRNFOSH0175-99-37 21:58:00 Test Item Value Reference Range Interpretation Comments UA Spec Grav (test code = UA Spec 1.025 1 Grav) [facility]woodPzvjewvWDSVIVTHLF5080-20-33 21:58:00 Test Item Value Reference Range Interpretation Comments UA Color (test code = Yellow (08/19/2011 N UA Color) 15:58:00) [facility] HospitalMkijsjuEFCTOAJQP6951-70-82 21:58:00 Test Item Value Reference Range Interpretation Comments S Preg (test code = S Negative (08/19/2011 N Preg) 15:58:00) [facility] HospitalFguazkcBXPEMVLBW9066-73-89 21:58:00 Test Item Value Reference Range Interpretation Comments Lipase Lvl (test code = Lipase Lvl) 169 73-393 N [facility] HospitalIzpeisxTYTHTTYFI1836-23-34 21:58:00 Test Item Value Reference Range Interpretation Comments ALT (test code = ALT) 54 See_Comment N [Auto mated message] The system which ge nerated this result transmit rohit reference range : <=65. The reference range was not used to interpr et this result as reji l/abnormal. [facility] HospitalRmyetwlUDMWUXFCG1212-29-68 21:58:00 Test Item Value Reference Range Interpretation Comments Alk Phos (test code = Alk Phos) 110 39-136 N [facility] HospitalLztwnrrFTQHWUCBI6580-19-44 21:58:00 Test Item Value Reference Range Interpretation Comments Bili Direct (test code 0.1 See_Comment N [Aut omated message] The = Bili Direct) system which generated this result tra nsmitted reference range : <=0.3. The reference r leo was not used to int erpret this result as reji l/abnormal. [facility] HospitalKtbwcbcGKCCFSAEH8417-11-71 21:58:00 Test Item Value Reference Range Interpretation Comments Bili Total (test code = Bili Total) 0.9 0.2-1.3 N [facility] HospitalRnultudWQJCTTOMZ3073-48-76 21:58:00 Test Item Value Reference Range Interpretation Comments Albumin Lvl (test code = Albumin Lvl) 4.4 3.5-5.0 N [facility] HospitalBggrdfkUWJRSYIFR9125-27-03 21:58:00 Test Item Value Reference Range Interpretation Comments Total Protein (test code = Total 8.8 6.4-8.4 H Protein) [facility] HospitalNowibufKUOGDYZUH8682-03-03 21:58:00 Test Item Value Reference Range Interpretation Comments Bili Indirect (test 0.8 See_Comment N [Automa rohit message] The code = Bili Indirect) system which generated this result tra nsmitted reference range : <=1.0. The reference r leo was not used to int erpret this result as normal/abnormal . [facility] HospitalFtnzegqPWNSXOSEC7552-05-45 21:58:00 Test Item Value Reference Range Interpretation Comments AST (test code = AST) 36 See_Comment N [Auto mated message] The system which ge nerated this result transmit rohit reference range : <=37. The reference range was not used to interpr et this result as reji l/abnormal. [facility] CenterYgqstxpDKBGXJJPQ9289-30-50 21:58:00 Test Item Value Reference Range Interpretation Comments Globulin (test code = Globulin) 4.4 2.0-4.0 H [facility] HospitalCrugcvgPBGFUVPAD7126-08-17 21:58:00 Test Item Value Reference Range Interpretation Comments A/G Ratio (test code = A/G Ratio) 1.0 0.7-1.6 N [facility] CenterHwtlthdSSMPRQSGAN7145-02-16 21:58:00 Test Item Value Reference Range Interpretation Comments UA Bacteria (test code Occasional /HPF N = UA Bacteria) (08/19/2011 15:58:00) [facility] CenterUpvgrklCZVBDHOOLF0723-95-24 21:58:00 Test Item Value Reference Range Interpretation Comments UA RBC (test 3-5 /HPF See_Comment A [Automated mes pastor] code = UA RBC) *ABN*(08/19/2011 The syste m which 15:58:00) generated this result transmitted ref erence range: <=2. The reference range was not used to int erpret this result as normal/abnormal . [facility] CenterGpwcmsxCFOSRGEDPT8967-68-34 21:58:00 Test Item Value Reference Range Interpretation Comments UA WBC (test code = 3 See_Comment [Automa rohit message] The UA WBC) system which ge nerated this result transmit rohit reference range : <=5. The reference range was not used to interpr et this result as reji l/abnormal. [facility] NorthwestZsyfjyiCMWWOSBVCQ5912-14-14 21:58:00 Test Item Value Reference Range Interpretation Comments UA Mucus (test code = Few /LPF (08/19/2011 N UA Mucus) 15:58:00) [facility] CenterLrdfoxpHWKXWFKNAR6459-15-64 21:58:00 Test Item Value Reference Range Interpretation Comments UA Amorph Destiny (test Occasional /HPF A code = UA Amorph *ABN*(08/19/2011 Destiny) 15:58:00) [facility] NorthwestMyoppelGQNGUOMRKH7198-20-11 21:58:00 Test Item Value Reference Range Interpretation Comments UA Urobilinogen (test code = UA 0.2 0.1-1.0 N Urobilinogen) [facility] NorthwestLilrvqaFZFLMLYECM1169-55-13 21:58:00 Test Item Value Reference Range Interpretation Comments UA Sq Epi (test code = Rare /LPF (08/19/2011 N UA Sq Epi) 15:58:00) [facility] CenterMftrwkrHSCZWXJQRL4929-70-95 21:58:00 Test Item Value Reference Range Interpretation Comments Micro? (test code = Performed (08/19/2011 N Micro?) 15:58:00) [facility] NorthwestPmsjgtoRZYBCFYZQA4376-75-32 21:58:00 Test Item Value Reference Range Interpretation Comments UA Leuk Est (test Negative (08/19/2011 N code = UA Leuk Est) 15:58:00) [facility] CenterSufnmnuREVKFPEFPC6824-15-79 21:58:00 Test Item Value Reference Range Interpretation Comments UA Nitrite (test code Negative (08/19/2011 N = UA Nitrite) 15:58:00) [facility] NorthwestBmtmdmqMOUFRUDIEL7730-79-45 21:58:00 Test Item Value Reference Range Interpretation Comments UA pH (test code = UA pH) 5.5 1 5.0-8.0 N [facility] NorthwestQpztcvxSVSSPJMRPE2391-55-70 21:58:00 Test Item Value Reference Range Interpretation Comments UA Blood (test code = Trace *ABN*(08/19/2011 A UA Blood) 15:58:00) [facility] NorthwestVqpjtahNZDLPQJTCF1485-57-18 21:58:00 Test Item Value Reference Range Interpretation Comments UA Bili (test code = Negative (08/19/2011 N UA Bili) 15:58:00) [facility] NorthwestLdsyqogCVRJCRJJDF0025-73-97 21:58:00 Test Item Value Reference Range Interpretation Comments UA Ketones (test code = 80 mg/dL A UA Ketones) *ABN*(08/19/2011 15:58:00) [facility] NorthwestWcgncpdWORWSMPIYQ3464-60-22 21:58:00 Test Item Value Reference Range Interpretation Comments UA Glucose (test code = >=1000 mg/dL A UA Glucose) *ABN*(08/19/2011 15:58:00) [facility] NorthwestBakpstoFAIZCMKPRL6902-61-81 21:58:00 Test Item Value Reference Range Interpretation Comments UA Protein (test code Negative (08/19/2011 N = UA Protein) 15:58:00) [facility] NorthwestJrzuuhtXJUCNDYNVN7537-11-57 21:58:00 Test Item Value Reference Range Interpretation Comments UA Turbidity (test code Slight Cloudy N = UA Turbidity) (08/19/2011 15:58:00) [facility] NorthwestGyeiekyPBNVAOVKBJ5603-21-01 21:58:00 Test Item Value Reference Range Interpretation Comments UA Spec Grav (test code = UA Spec 1.025 1 Grav) [facility] NorthwestQneduxhTVXDCMEROH9817-76-62 21:58:00 Test Item Value Reference Range Interpretation Comments UA Color (test code = Yellow (08/19/2011 N UA Color) 15:58:00) [facility] CenterCrzjncgMQLSPTRHS9519-95-97 21:58:00 Test Item Value Reference Range Interpretation Comments S Preg (test code = S Negative (08/19/2011 N Preg) 15:58:00) [facility] HospitalJwazabhAQTQCPJFE1927-24-45 21:58:00 Test Item Value Reference Range Interpretation Comments Lipase Lvl (test code = Lipase Lvl) 169 73-393 N [facility] HospitalHupfktlVEGJQXBYH7413-67-96 21:58:00 Test Item Value Reference Range Interpretation Comments ALT (test code = ALT) 54 See_Comment N [Auto mated message] The system which ge nerated this result transmit rohit reference range : <=65. The reference range was not used to interpr et this result as reji l/abnormal. [facility] HospitalHmtrcxbFDQDFCMQE1517-73-26 21:58:00 Test Item Value Reference Range Interpretation Comments Alk Phos (test code = Alk Phos) 110 39-136 N [facility] HospitalNuuvoobVMJEVVECM3618-49-79 21:58:00 Test Item Value Reference Range Interpretation Comments Bili Direct (test code 0.1 See_Comment N [Aut omated message] The = Bili Direct) system which generated this result tra nsmitted reference range : <=0.3. The reference r leo was not used to int erpret this result as reji l/abnormal. [facility] HospitalOmvmrhlBZFLVGPIO2846-41-82 21:58:00 Test Item Value Reference Range Interpretation Comments Bili Total (test code = Bili Total) 0.9 0.2-1.3 N [facility] HospitalVgevpygKTCGMCHRQ7141-86-39 21:58:00 Test Item Value Reference Range Interpretation Comments Albumin Lvl (test code = Albumin Lvl) 4.4 3.5-5.0 N [facility] HospitalXjacdrrMUUFBJPSU5971-35-40 21:58:00 Test Item Value Reference Range Interpretation Comments Total Protein (test code = Total 8.8 6.4-8.4 H Protein) [facility] HospitalLxnxjuyAPMWVHVCO8648-42-86 21:58:00 Test Item Value Reference Range Interpretation Comments Bili Indirect (test 0.8 See_Comment N [Automa rohit message] The code = Bili Indirect) system which generated this result tra nsmitted reference range : <=1.0. The reference r leo was not used to int erpret this result as normal/abnormal . [facility] HospitalZmwwstjLVYACBIGX7202-97-71 21:58:00 Test Item Value Reference Range Interpretation Comments AST (test code = AST) 36 See_Comment N [Auto mated message] The system which ge nerated this result transmit rohit reference range : <=37. The reference range was not used to interpr et this result as reji l/abnormal. [facility] CenterOyuvpdsOIBPHDYBT5297-92-48 21:58:00 Test Item Value Reference Range Interpretation Comments Globulin (test code = Globulin) 4.4 2.0-4.0 H [facility] HospitalNygnqnaYLDOAVGHZ3113-10-27 21:58:00 Test Item Value Reference Range Interpretation Comments A/G Ratio (test code = A/G Ratio) 1.0 0.7-1.6 N [facility] NorthwestMsyjdwgXDVMZKGWWM2990-23-58 21:58:00 Test Item Value Reference Range Interpretation Comments UA Bacteria (test code Occasional /HPF N = UA Bacteria) (08/19/2011 15:58:00) [facility] NorthwestUtaxiwaTUKNPFOUOG1290-27-21 21:58:00 Test Item Value Reference Range Interpretation Comments UA RBC (test 3-5 /HPF See_Comment A [Automated mes pastor] code = UA RBC) *ABN*(08/19/2011 The syste m which 15:58:00) generated this result transmitted ref erence range: <=2. The reference range was not used to int erpret this result as normal/abnormal . [facility] CenterNjzchudUBXCSGGCAB6798-95-24 21:58:00 Test Item Value Reference Range Interpretation Comments UA WBC (test code = 3 See_Comment [Automa rohit message] The UA WBC) system which ge nerated this result transmit rohit reference range : <=5. The reference range was not used to interpr et this result as reji l/abnormal. [facility] CenterGveofpqBQMTLXMJPP7445-54-27 21:58:00 Test Item Value Reference Range Interpretation Comments UA Mucus (test code = Few /LPF (08/19/2011 N UA Mucus) 15:58:00) [facility] NorthwestHribwtcFQKQDHTJBX9031-25-81 21:58:00 Test Item Value Reference Range Interpretation Comments UA Amorph Destiny (test Occasional /HPF A code = UA Amorph *ABN*(08/19/2011 Destiny) 15:58:00) [facility] NorthwestElcgsusWWBQBAXABA6267-80-43 21:58:00 Test Item Value Reference Range Interpretation Comments UA Urobilinogen (test code = UA 0.2 0.1-1.0 N Urobilinogen) [facility] NorthwestHsuvzdqYHOSHRGDNV5623-47-30 21:58:00 Test Item Value Reference Range Interpretation Comments UA Sq Epi (test code = Rare /LPF (08/19/2011 N UA Sq Epi) 15:58:00) [facility]woodRzltuvjAEPRESRXYD3168-53-44 21:58:00 Test Item Value Reference Range Interpretation Comments Micro? (test code = Performed (08/19/2011 N Micro?) 15:58:00) [facility] NorthwestYdrlhrkGMUARIXBRN1536-17-54 21:58:00 Test Item Value Reference Range Interpretation Comments UA Leuk Est (test Negative (08/19/2011 N code = UA Leuk Est) 15:58:00) [facility] KingwoodTukjpalLHGQQVTWGV5830-11-94 21:58:00 Test Item Value Reference Range Interpretation Comments UA Nitrite (test code Negative (08/19/2011 N = UA Nitrite) 15:58:00) [facility]cjg[facility]LQGOVXXGFU0245[facility] 21:58:00 Test Item Value Reference Range Interpretation Comments UA pH (test code = UA pH) 5.5 1 5.0-8.0 N [facility]BbthlmvOOKPJYOOIH0206-77-38 21:58:00 Test Item Value Reference Range Interpretation Comments UA Blood (test code = Trace *ABN*(08/19/2011 A UA Blood) 15:58:00) [facility]woodBzgsnguFXDQIYJFFF8720-07-90 21:58:00 Test Item Value Reference Range Interpretation Comments UA Bili (test code = Negative (08/19/2011 N UA Bili) 15:58:00) [facility] NorthwestGnsusvvBHTISOGGXD4853-42-56 21:58:00 Test Item Value Reference Range Interpretation Comments UA Ketones (test code = 80 mg/dL A UA Ketones) *ABN*(08/19/2011 15:58:00) [facility]woodRsziojeKJVKHGMIRZ6918-16-01 21:58:00 Test Item Value Reference Range Interpretation Comments UA Glucose (test code = >=1000 mg/dL A UA Glucose) *ABN*(08/19/2011 15:58:00) [facility] NorthwestOnoprrrPQRAVGMODO9580-57-02 21:58:00 Test Item Value Reference Range Interpretation Comments UA Protein (test code Negative (08/19/2011 N = UA Protein) 15:58:00) [facility]woodDsiiekqIPJUNWVBZR6724-01-89 21:58:00 Test Item Value Reference Range Interpretation Comments UA Turbidity (test code Slight Cloudy N = UA Turbidity) (08/19/2011 15:58:00) [facility]woodOzzghfnJGESXIPWQG0032-92-72 21:58:00 Test Item Value Reference Range Interpretation Comments UA Spec Grav (test code = UA Spec 1.025 1 Grav) [facility]woodJvjuyudTVSGGIGDWB5023-14-30 21:58:00 Test Item Value Reference Range Interpretation Comments UA Color (test code = Yellow (08/19/2011 N UA Color) 15:58:00) [facility]ZwhmohpHUHUOGXRD9204-23-68 21:13:00 Test Item Value Reference Range Interpretation Comments AST (test code = AST) 23 See_Comment N [Auto mated message] The system which ge nerated this result transmit rohit reference range : <=37. The reference range was not used to interpr et this result as reji l/abnormal. [facility] HospitalWlpsjgnBGJZOTKFO9297-87-71 21:13:00 Test Item Value Reference Range Interpretation Comments Bili Total (test code = Bili Total) 1.0 0.2-1.3 N [facility] HospitalUpskhuoWJKKFFEIQ0961-94-05 21:13:00 Test Item Value Reference Range Interpretation Comments Alk Phos (test code = Alk Phos) 115 39-136 N [facility] HospitalRmtstmsNXUXFQFLK3557-35-04 21:13:00 Test Item Value Reference Range Interpretation Comments ALT (test code = ALT) 56 See_Comment N [Auto mated message] The system which ge nerated this result transmit rohit reference range : <=65. The reference range was not used to interpr et this result as reji l/abnormal. [facility] HospitalOrdlrnsLDEODPNFS4902-29-33 21:13:00 Test Item Value Reference Range Interpretation Comments Total Protein (test code = Total 9.0 6.4-8.4 H Protein) [facility] HospitalEooeadnXFKXZMQHK5182-42-46 21:13:00 Test Item Value Reference Range Interpretation Comments Albumin Lvl (test code = Albumin Lvl) 4.8 3.5-5.0 N [facility] HospitalLjsebhvTFYHXYNMW7024-75-08 21:13:00 Test Item Value Reference Range Interpretation Comments Globulin (test code = Globulin) 4.2 2.0-4.0 H [facility] HospitalXlyiqpwOCZVNDYIR9655-34-69 21:13:00 Test Item Value Reference Range Interpretation Comments A/G Ratio (test code = A/G Ratio) 1.1 0.7-1.6 N [facility] HospitalIprqywqGKUFVYCIL5754-41-31 21:13:00 Test Item Value Reference Range Interpretation Comments B/C Ratio (test code = B/C Ratio) 30 6-25 [facility]FhdtltvTEBNEDZBBJ4063-88-45 21:13:00 Test Item Value Reference Range Interpretation Comments RBC Morph (test code = Normal (08/19/2011 N RBC Morph) 15:13:00) [facility] CenterGhhepyqSUIYYJCVNW0658-91-37 21:13:00 Test Item Value Reference Range Interpretation Comments Large Plt (test code = Slight *ABN*(08/19/2011 A Large Plt) 15:13:00) [facility] CenterQxajsmsGJLUHFDZSD7548-72-28 21:13:00 Test Item Value Reference Range Interpretation Comments Atypical Lymphs (test code = Atypical 0.0 N Lymphs) [facility] CenterBvqxyqnSIMJNDZFVC6226-39-02 21:13:00 Test Item Value Reference Range Interpretation Comments Bands (test code = 0.0 See_Comment N [Automat ed message] The Bands) system which ge nerated this result transmit rohit reference range : <=11.0. The reference r leo was not used to interpr et this result as reji l/abnormal. [facility] HospitalBqytglkDTINHQQKJ2612-02-53 21:13:00 Test Item Value Reference Range Interpretation Comments AST (test code = AST) 23 See_Comment N [Auto mated message] The system which ge nerated this result transmit rohit reference range : <=37. The reference range was not used to interpr et this result as reji l/abnormal. [facility] HospitalQjwccxjMAOGQZGRK4077-30-97 21:13:00 Test Item Value Reference Range Interpretation Comments Bili Total (test code = Bili Total) 1.0 0.2-1.3 N [facility] HospitalAtwfzrqNOEFAZSEB4526-54-58 21:13:00 Test Item Value Reference Range Interpretation Comments Alk Phos (test code = Alk Phos) 115 39-136 N [facility] HospitalPavdjihTGESWISVZ4163-87-26 21:13:00 Test Item Value Reference Range Interpretation Comments ALT (test code = ALT) 56 See_Comment N [Auto mated message] The system which ge nerated this result transmit rohit reference range : <=65. The reference range was not used to interpr et this result as reji l/abnormal. [facility] HospitalKszcuvsGVCKCFGLX4683-24-22 21:13:00 Test Item Value Reference Range Interpretation Comments Total Protein (test code = Total 9.0 6.4-8.4 H Protein) [facility] HospitalMynoeboXESPBDJPW8097-47-62 21:13:00 Test Item Value Reference Range Interpretation Comments Albumin Lvl (test code = Albumin Lvl) 4.8 3.5-5.0 N [facility] HospitalBwldkvcXCCIWIHHS7145-77-55 21:13:00 Test Item Value Reference Range Interpretation Comments Globulin (test code = Globulin) 4.2 2.0-4.0 H [facility] HospitalRkmjacqGQBUTGBLC7853-29-91 21:13:00 Test Item Value Reference Range Interpretation Comments A/G Ratio (test code = A/G Ratio) 1.1 0.7-1.6 N [facility] HospitalVjisvdcSANFGJQEK4793-09-34 21:13:00 Test Item Value Reference Range Interpretation Comments B/C Ratio (test code = B/C Ratio) 30 6-25 H [facility] CenterJqeanywRMQSOFRBJY4752-53-82 21:13:00 Test Item Value Reference Range Interpretation Comments RBC Morph (test code = Normal (08/19/2011 N RBC Morph) 15:13:00) [facility] CenterXutullaCEHSVQLOHG4520-93-88 21:13:00 Test Item Value Reference Range Interpretation Comments Large Plt (test code = Slight *ABN*(08/19/2011 A Large Plt) 15:13:00) [facility] CenterDqfrqesJCZCUXLMME9300-65-38 21:13:00 Test Item Value Reference Range Interpretation Comments Atypical Lymphs (test code = Atypical 0.0 N Lymphs) [facility] CenterNucuyxcPIZYMDWTLF9721-67-12 21:13:00 Test Item Value Reference Range Interpretation Comments Bands (test code = 0.0 See_Comment N [Automat ed message] The Bands) system which ge nerated this result transmit rohit reference range : <=11.0. The reference r leo was not used to interpr et this result as reji l/abnormal. [facility] HospitalEtuicatIABHTLECP7578-26-68 21:13:00 Test Item Value Reference Range Interpretation Comments AST (test code = AST) 23 See_Comment N [Auto mated message] The system which ge nerated this result transmit rohit reference range : <=37. The reference range was not used to interpr et this result as reji l/abnormal. [facility] HospitalWzryihfPDNHIOWLQ8676-58-77 21:13:00 Test Item Value Reference Range Interpretation Comments Bili Total (test code = Bili Total) 1.0 0.2-1.3 N [facility] HospitalCajjewiOMGQZBJFX4733-70-11 21:13:00 Test Item Value Reference Range Interpretation Comments Alk Phos (test code = Alk Phos) 115 39-136 N [facility] HospitalWpzcmbqQAJOJNBDJ6516-66-41 21:13:00 Test Item Value Reference Range Interpretation Comments ALT (test code = ALT) 56 See_Comment N [Auto mated message] The system which ge nerated this result transmit rohit reference range : <=65. The reference range was not used to interpr et this result as reji l/abnormal. [facility] HospitalMcaglmbIODLEUIFH7554-98-39 21:13:00 Test Item Value Reference Range Interpretation Comments Total Protein (test code = Total 9.0 6.4-8.4 H Protein) [facility] HospitalEuqekqzWHBKCWYAH1119-14-02 21:13:00 Test Item Value Reference Range Interpretation Comments Albumin Lvl (test code = Albumin Lvl) 4.8 3.5-5.0 N [facility] HospitalKcxjtpsYYAFKTBFV6982-17-23 21:13:00 Test Item Value Reference Range Interpretation Comments Globulin (test code = Globulin) 4.2 2.0-4.0 H [facility] HospitalHtdzkusLRZYQWENS0589-01-61 21:13:00 Test Item Value Reference Range Interpretation Comments A/G Ratio (test code = A/G Ratio) 1.1 0.7-1.6 N [facility] HospitalArsdtysWBXZKMARP7272-55-33 21:13:00 Test Item Value Reference Range Interpretation Comments B/C Ratio (test code = B/C Ratio) 30 6-25 H [facility] CenterDvlrabpYBPVTYNUVE0726-09-51 21:13:00 Test Item Value Reference Range Interpretation Comments RBC Morph (test code = Normal (08/19/2011 N RBC Morph) 15:13:00) [facility] CenterFklkrifZAVHFZZKTK1727-24-57 21:13:00 Test Item Value Reference Range Interpretation Comments Large Plt (test code = Slight *ABN*(08/19/2011 A Large Plt) 15:13:00) [facility] CenterZqqhupmCIMVUIAQQT2702-28-40 21:13:00 Test Item Value Reference Range Interpretation Comments Atypical Lymphs (test code = Atypical 0.0 N Lymphs) [facility] CenterIvgqqfyDVEITCMFVW5605-13-99 21:13:00 Test Item Value Reference Range Interpretation Comments Bands (test code = 0.0 See_Comment N [Automat ed message] The Bands) system which ge nerated this result transmit rohit reference range : <=11.0. The reference r leo was not used to interpr et this result as reji l/abnormal. [facility] HospitalJbmpwqpNTFDTXDWC8133-67-61 21:13:00 Test Item Value Reference Range Interpretation Comments AST (test code = AST) 23 See_Comment N [Auto mated message] The system which ge nerated this result transmit rohit reference range : <=37. The reference range was not used to interpr et this result as reji l/abnormal. [facility] HospitalSumaqbqCQJWSWSAV7629-26-70 21:13:00 Test Item Value Reference Range Interpretation Comments Bili Total (test code = Bili Total) 1.0 0.2-1.3 N [facility] HospitalKypjdrxPETUWRBPF7289-93-82 21:13:00 Test Item Value Reference Range Interpretation Comments Alk Phos (test code = Alk Phos) 115 39-136 N [facility] HospitalBnjdoupTKACXGHBQ0621-20-75 21:13:00 Test Item Value Reference Range Interpretation Comments ALT (test code = ALT) 56 See_Comment N [Auto mated message] The system which ge nerated this result transmit rohit reference range : <=65. The reference range was not used to interpr et this result as reji l/abnormal. [facility] HospitalRxggmxjEUXNBHSDY5438-95-24 21:13:00 Test Item Value Reference Range Interpretation Comments Total Protein (test code = Total 9.0 6.4-8.4 H Protein) [facility] HospitalBhljxviXAUFRCXPC5200-86-64 21:13:00 Test Item Value Reference Range Interpretation Comments Albumin Lvl (test code = Albumin Lvl) 4.8 3.5-5.0 N [facility] HospitalVukpwyuBKKPPLSXI7611-78-75 21:13:00 Test Item Value Reference Range Interpretation Comments Globulin (test code = Globulin) 4.2 2.0-4.0 H [facility] HospitalCdkkvlwKADTCPLRL5329-29-36 21:13:00 Test Item Value Reference Range Interpretation Comments A/G Ratio (test code = A/G Ratio) 1.1 0.7-1.6 N [facility] HospitalFnedeqrFFKLPQCHZ0966-40-07 21:13:00 Test Item Value Reference Range Interpretation Comments B/C Ratio (test code = B/C Ratio) 30 6-25 H [facility] CenterVemronbYDTXAUXDGZ9791-01-97 21:13:00 Test Item Value Reference Range Interpretation Comments RBC Morph (test code = Normal (08/19/2011 N RBC Morph) 15:13:00) [facility] CenterVoqzvpiDKFNDNTKQE4267-28-56 21:13:00 Test Item Value Reference Range Interpretation Comments Large Plt (test code = Slight *ABN*(08/19/2011 A Large Plt) 15:13:00) [facility] CenterGrexipyRNRKUWVNGM9578-28-67 21:13:00 Test Item Value Reference Range Interpretation Comments Atypical Lymphs (test code = Atypical 0.0 N Lymphs) [facility] CenterTdkltguFPANXBJOUS4215-03-38 21:13:00 Test Item Value Reference Range Interpretation Comments Bands (test code = 0.0 See_Comment N [Automat ed message] The Bands) system which ge nerated this result transmit rohit reference range : <=11.0. The reference r leo was not used to interpr et this result as reji l/abnormal. [facility] HospitalVfovdpzGTBIYYQJT6130-43-99 21:13:00 Test Item Value Reference Range Interpretation Comments AST (test code = AST) 23 See_Comment N [Auto mated message] The system which ge nerated this result transmit rohit reference range : <=37. The reference range was not used to interpr et this result as reji l/abnormal. [facility] HospitalEncvuqsXRSAFFOIN0955-64-91 21:13:00 Test Item Value Reference Range Interpretation Comments Bili Total (test code = Bili Total) 1.0 0.2-1.3 N [facility] HospitalHickhzkETKFEQKSF9106-77-48 21:13:00 Test Item Value Reference Range Interpretation Comments Alk Phos (test code = Alk Phos) 115 39-136 N [facility] HospitalMipowmcTLSWHFAVC4724-61-54 21:13:00 Test Item Value Reference Range Interpretation Comments ALT (test code = ALT) 56 See_Comment N [Auto mated message] The system which ge nerated this result transmit rohit reference range : <=65. The reference range was not used to interpr et this result as reji l/abnormal. [facility] HospitalJascodnBAJLSZDFQ4188-90-57 21:13:00 Test Item Value Reference Range Interpretation Comments Total Protein (test code = Total 9.0 6.4-8.4 H Protein) [facility] HospitalArgotvzIQONVTAUU5458-27-87 21:13:00 Test Item Value Reference Range Interpretation Comments Albumin Lvl (test code = Albumin Lvl) 4.8 3.5-5.0 N [facility] HospitalMnndytgHOVONVEMG7046-95-50 21:13:00 Test Item Value Reference Range Interpretation Comments Globulin (test code = Globulin) 4.2 2.0-4.0 H [facility] HospitalLwonsucYPJWCJBSX1624-89-91 21:13:00 Test Item Value Reference Range Interpretation Comments A/G Ratio (test code = A/G Ratio) 1.1 0.7-1.6 N [facility] HospitalClvdvbuAWINYTXYW9667-72-94 21:13:00 Test Item Value Reference Range Interpretation Comments B/C Ratio (test code = B/C Ratio) 30 6-25 H [facility] CenterEltuxvqWLKFJOCBYH0261-34-62 21:13:00 Test Item Value Reference Range Interpretation Comments RBC Morph (test code = Normal (08/19/2011 N RBC Morph) 15:13:00) [facility] CenterKwdcertPHEMNNZTPJ2775-29-62 21:13:00 Test Item Value Reference Range Interpretation Comments Large Plt (test code = Slight *ABN*(08/19/2011 A Large Plt) 15:13:00) [facility] CenterDfvunitRBXVNOHXJZ6636-53-83 21:13:00 Test Item Value Reference Range Interpretation Comments Atypical Lymphs (test code = Atypical 0.0 N Lymphs) [facility] CenterYlgdpgzNWHCKAVBKK4874-98-06 21:13:00 Test Item Value Reference Range Interpretation Comments Bands (test code = 0.0 See_Comment N [Automat ed message] The Bands) system which ge nerated this result transmit rohit reference range : <=11.0. The reference r leo was not used to interpr et this result as reji l/abnormal. [facility] HospitalFkkflwgFAOZRRSUI9756-36-37 21:10:00 Test Item Value Reference Range Interpretation Comments O2 Sat Roberth (test code = O2 Sat Roberth) 74.0 40.0-70.0 H [facility] HospitalNcidjzkRYVCECDWG5288-01-41 21:10:00 Test Item Value Reference Range Interpretation Comments Temp Roberth (test code = Temp Roberth) 37.0 [facility] HospitalOpndvipRSGCVYHPE4775-91-57 21:10:00 Test Item Value Reference Range Interpretation Comments pO2 Roberth (test code = pO2 Roberth) 42 20-49 N [facility] HospitalLgzfaheMAVLHQGHQ6732-52-82 21:10:00 Test Item Value Reference Range Interpretation Comments HCO3 Roberth (test code = HCO3 Roberth) 17.3 22.0-26.0 L [facility] HospitalQqaicvlSAKODVETL7714-28-32 21:10:00 Test Item Value Reference Range Interpretation Comments pH Roberth (test code = pH Roberth) 7.34 7.28-7.42 N [facility] HospitalVjiptoyAWILANBVA9525-86-48 21:10:00 Test Item Value Reference Range Interpretation Comments pCO2 Roberth (test code = pCO2 Roberth) 32 38-52 L [facility] HospitalFpzcqbkDOMVBGUDO4253-45-67 21:10:00 Test Item Value Reference Range Interpretation Comments BE Roberth (test code = -7 See_Comment L [Automa rohit message] The BE Roberth) system which ge nerated this result transmit rohit reference range : <=2. The reference range was not used to interpr et this result as reji l/abnormal. [facility] HospitalTbuypryGQXZJMCTA9689-52-35 21:10:00 Test Item Value Reference Range Interpretation Comments O2 Sat Roberth (test code = O2 Sat Roberth) 74.0 40.0-70.0 H [facility] HospitalButxrleSBMYOZALQ8976-86-35 21:10:00 Test Item Value Reference Range Interpretation Comments Temp Roberth (test code = Temp Roberth) 37.0 [facility] HospitalSnmzisiYHCUISZFT7892-67-79 21:10:00 Test Item Value Reference Range Interpretation Comments pO2 Roberth (test code = pO2 Roberth) 42 20-49 N [facility] HospitalUmlegqqAKKSZCDMS9444-43-95 21:10:00 Test Item Value Reference Range Interpretation Comments HCO3 Roberth (test code = HCO3 Roberth) 17.3 22.0-26.0 L [facility] HospitalOfkzbmrBRMWYFVTG1487-03-25 21:10:00 Test Item Value Reference Range Interpretation Comments pH Roberth (test code = pH Roberth) 7.34 7.28-7.42 N [facility] HospitalUycmhjxYCJCAECOY2967-32-92 21:10:00 Test Item Value Reference Range Interpretation Comments pCO2 Roberth (test code = pCO2 Robetrh) 32 38-52 L [facility] HospitalLbiubiiACELEAJHG4324-43-58 21:10:00 Test Item Value Reference Range Interpretation Comments BE Roberth (test code = -7 See_Comment L [Automa rohit message] The BE Roberth) system which ge nerated this result transmit rohit reference range : <=2. The reference range was not used to interpr et this result as reji l/abnormal. [facility] HospitalBsbopahTUHDMTKWD7059-43-55 21:10:00 Test Item Value Reference Range Interpretation Comments O2 Sat Roberth (test code = O2 Sat Roberth) 74.0 40.0-70.0 H [facility] HospitalXfjgdloAKICTWVYU7285-87-91 21:10:00 Test Item Value Reference Range Interpretation Comments Temp Roberth (test code = Temp Roberth) 37.0 [facility] HospitalNbrbkmlPLPMQPHSY0678-73-37 21:10:00 Test Item Value Reference Range Interpretation Comments pO2 Roberth (test code = pO2 Roberth) 42 20-49 N [facility] HospitalSlmwkgsFYGRALAFP2580-78-26 21:10:00 Test Item Value Reference Range Interpretation Comments HCO3 Roberth (test code = HCO3 Roberth) 17.3 22.0-26.0 L [facility] HospitalTdzgueyNROVFGOCJ1077-78-02 21:10:00 Test Item Value Reference Range Interpretation Comments pH Roberth (test code = pH Roberth) 7.34 7.28-7.42 N [facility] HospitalFkvrgbaFCAGZWHLN8839-17-06 21:10:00 Test Item Value Reference Range Interpretation Comments pCO2 Roberth (test code = pCO2 Roberth) 32 38-52 L [facility] HospitalUajzbejOANWQQGXQ8574-94-29 21:10:00 Test Item Value Reference Range Interpretation Comments BE Roberth (test code = -7 See_Comment L [Automa rohit message] The BE Roberth) system which ge nerated this result transmit rohit reference range : <=2. The reference range was not used to interpr et this result as reji l/abnormal. [facility] HospitalSskxqhrFOWHRMCYL9833-81-40 21:10:00 Test Item Value Reference Range Interpretation Comments O2 Sat Roberth (test code = O2 Sat Orberth) 74.0 40.0-70.0 H [facility] HospitalCububbrPALTUSCMW4822-84-56 21:10:00 Test Item Value Reference Range Interpretation Comments Temp Roberth (test code = Temp Roberth) 37.0 [facility] HospitalGiprmtmRXLKZRZBS2781-52-55 21:10:00 Test Item Value Reference Range Interpretation Comments pO2 Roberth (test code = pO2 Roberth) 42 20-49 N [facility] HospitalAyviuqfPUEYALZPC9188-81-82 21:10:00 Test Item Value Reference Range Interpretation Comments HCO3 Roberth (test code = HCO3 Roberth) 17.3 22.0-26.0 L [facility] HospitalVbyeocmRVJLTSSZI7950-54-68 21:10:00 Test Item Value Reference Range Interpretation Comments pH Roberth (test code = pH Roberth) 7.34 7.28-7.42 N [facility] HospitalOuyqlrmFTPASFIKC3075-66-84 21:10:00 Test Item Value Reference Range Interpretation Comments pCO2 Roberth (test code = pCO2 Roberth) 32 38-52 L [facility] HospitalJkctqwvJREQMTWUM3080-15-68 21:10:00 Test Item Value Reference Range Interpretation Comments BE Roberth (test code = -7 See_Comment L [Automa rohit message] The BE Roberth) system which ge nerated this result transmit rohit reference range : <=2. The reference range was not used to interpr et this result as reji l/abnormal. [facility] HospitalSeslpxaKKVBGMIQJ3622-15-77 21:10:00 Test Item Value Reference Range Interpretation Comments O2 Sat Roberth (test code = O2 Sat Roberth) 74.0 40.0-70.0 H [facility] HospitalHxjitreLTCMGVMGM8500-13-74 21:10:00 Test Item Value Reference Range Interpretation Comments Temp Roberth (test code = Temp Roberth) 37.0 [facility] HospitalXgcojfcNFRWBJRGF5427-34-70 21:10:00 Test Item Value Reference Range Interpretation Comments pO2 Roberth (test code = pO2 Roberth) 42 20-49 N [facility] HospitalAgwexjrHHNWLSBHE8783-03-96 21:10:00 Test Item Value Reference Range Interpretation Comments HCO3 Roberth (test code = HCO3 Roberth) 17.3 22.0-26.0 L [facility] HospitalGrvjlrhNOBDVEBQZ9325-95-13 21:10:00 Test Item Value Reference Range Interpretation Comments pH Roberth (test code = pH Roberth) 7.34 7.28-7.42 N [facility] HospitalHjpktyfCKNIQKRYC0094-41-54 21:10:00 Test Item Value Reference Range Interpretation Comments pCO2 Roberth (test code = pCO2 Roberth) 32 38-52 L [facility] HospitalPqlteynHQELPMAON0159-47-33 21:10:00 Test Item Value Reference Range Interpretation Comments BE Roberth (test code = -7 See_Comment L [Automa rohit message] The BE Roberth) system which ge nerated this result transmit rohit reference range : <=2. The reference range was not used to interpr et this result as reji l/abnormal. [facility]XhisowrYQFGHUSUHU3286-27-45 20:34:00 Test Item Value Reference Range Interpretation Comments CDC-HIV 1/2 Ab (test Negative *NA*(08/19/2011 code = CDC-HIV 1/2 14:34:00) Ab) [facility]IfvltcyTIVZGVRXEX9009-86-25 20:34:00 Test Item Value Reference Range Interpretation Comments CDC-HIV 1/2 Ab (test Negative *NA*(08/19/2011 code = CDC-HIV 1/2 14:34:00) Ab) [facility] HospitalTjrofnvCJGPMRUAMS5301-73-83 20:34:00 Test Item Value Reference Range Interpretation Comments CDC-HIV 1/2 Ab (test Negative *NA*(08/19/2011 code = CDC-HIV 1/2 14:34:00) Ab) [facility] HospitalEevxyvdTCUWLMORGP0019-89-32 20:34:00 Test Item Value Reference Range Interpretation Comments CDC-HIV 1/2 Ab (test Negative *NA*(08/19/2011 code = CDC-HIV 1/2 14:34:00) Ab) [facility] CenterMambptsGPLQZOGFIH8965-71-18 20:34:00 Test Item Value Reference Range Interpretation Comments CDC-HIV 1/2 Ab (test Negative *NA*(08/19/2011 code = CDC-HIV 1/2 14:34:00) Ab) [facility]
--- NOTE | 2023-01-27 01:41 | ER ---
Nurse's Notes [facility] Name: Cathi Zaldivar Age: 42 yrs Sex: Female : 1980 Arrival Date: 01/26/2023 Time: 22:24 Bed 20 Private MD: Diagnosis: Acute head injury, acute fall, acute pelvic contusion, acute lumbar sprain, Presentation: 01/26 22:32 Chief complaint: Patient states: right sided body pain s/p trip and fall. Pt states cm10 that she hit her head. No LOC on Eliquis. Coronavirus screen: Vaccine status: Patient reports being unvaccinated. Ebola Screen: Patient denies travel to an Ebola-affected area in the 21 days before illness onset. No symptoms or risks identified at this time. Initial Sepsis Screen: Does the patient meet any 2 criteria? No. Patient's initial sepsis screen is negative. Does the patient have a suspected source of infection? No. Patient's initial sepsis screen is negative. Risk Assessment: Do you want to hurt yourself or someone else? Patient reports no desire to harm self or others. Onset of symptoms was January 26, 2023. 22:32 Method Of Arrival: Wheelchair cm10 22:32 Acuity: JESSICA 3 cm10 Triage Assessment: 22:40 General: Appears in no apparent distress. uncomfortable, Behavior is cooperative. Pain: vc1 Complains of pain in right side of head, right shoulder, right arm, right side of back Pain does not radiate. Pain currently is 10 out of 10 on a pain scale. EENT: No deficits noted. Neuro: Level of Consciousness is awake, Oriented to person, place, time, situation, Appropriate for age. Cardiovascular: No deficits noted. Respiratory: Airway is patent Respiratory effort is even, unlabored, Respiratory pattern is regular, symmetrical. GI: No deficits noted. No signs and/or symptoms were reported involving the gastrointestinal system. : No deficits noted. No signs and/or symptoms were reported regarding the genitourinary system. Derm: No deficits noted. No signs and/or symptoms reported regarding the dermatologic system. Musculoskeletal: Reports pain in right side. Historical: - Allergies: 22:34 ambien; cm10 22:34 Codeine; cm10 22:34 GABAPENTIN; cm10 22:34 GUAIFENESIN; cm10 22:34 Lisinopril; cm10 22:34 Morphine; cm10 22:34 Nitrofurantoin Macrocrystal; cm10 22:34 PENICILLINS; cm10 22:34 Prolixin; cm10 22:34 Seroquel; cm10 22:34 Tape; cm10 22:34 zolpidem tartrate; cm10 - PMHx: 22:34 "mental problems"; cardiac arrest; CHF; chronic kidney disease; cyclic vomiting cm10 syndrome; Diabetes - NIDDM; Dialysis; m-w-f; ENCEPHALOPATHY; Gastroparesis; Hypertension; ibs; liver failure; PERIPHERAL NEUROPATHY; pseudo aneurysm R groin; Seizures; - PSHx: 22:34 2 heart stents; section; dialysis catheter R chest wall; eye removed; cm10 - Immunization history:: Adult Immunizations up to date. - Social history:: Smoking status: Patient reports the use of cigarette tobacco products, denies chronic smoking, but will smoke occasionally. - Family history:: not pertinent. Screenin:40 [facility] ED Fall Risk Assessment (Adult) History of falling in the last 3 months, vc1 including since admission Yes- single mechanical fall (1 pt) Confusion or Disorientation No (0 pts) Intoxicated or Sedated No (0 pts) Impaired Gait No (0 pts) Mobility Assist Device Used No (0 pt) Altered Elimination No (0 pt) Score/Fall Risk Level 0 - 2 = Low Risk Oriented to surroundings, Maintained a safe environment, Educated pt \\T\\ family on fall prevention, incl call for assistance when getting out of bed. Abuse screen: Denies threats or abuse. Nutritional screening: No deficits noted. Tuberculosis screening: No symptoms or risk factors identified. Assessment: 23:00 Reassessment: No changes from previously documented assessment. Patient and/or family vc1 updated on plan of care and expected duration. Pain level reassessed. Patient is alert, oriented x 3, equal unlabored respirations, skin warm/dry/pink. 01/27 00:00 Reassessment: No changes from previously documented assessment. Patient and/or family vc1 updated on plan of care and expected duration. Pain level reassessed. Patient is alert, oriented x 3, equal unlabored respirations, skin warm/dry/pink. 01:00 Reassessment: No changes from previously documented assessment. Patient and/or family vc1 updated on plan of care and expected duration. Pain level reassessed. Patient is alert, oriented x 3, equal unlabored respirations, skin warm/dry/pink. Vital Signs: 01/26 22:32 BP 220 / 106; Pulse 92; Resp 18; Temp 98.4(TE); Pulse Ox 100% on R/A; Weight 74 kg; cm10 Pain 9/10; 23:00 BP 230 / 104; Pulse 104; Resp 18; Pulse Ox 100% ; vc1 01/27 00:00 BP 231 / 97; Pulse 93; Resp 16; Pulse Ox 100% ; vc1 01:00 BP 189 / 89; Pulse 91; Resp 17; Pulse Ox 100% ; vc1 01/26 22:32 Pain Scale: Adult cm10 ED Course: 01/26 22:25 Patient arrived in ED. am2 22:28 Avel Kelley MD is Attending Physician. sp4 22:34 Triage completed. cm10 22:35 Arm band placed on Patient placed in an exam room, on a stretcher. cm10 22:40 Patient has correct armband on for positive identification. Bed in low position. Call vc1 light in reach. Pulse ox on. NIBP on. 23:38 CT Traumagram (Head C Spine CAP wo con) In Process Unspecified. EDMS 01/27 01:47 No provider procedures requiring assistance completed. IV discontinued, intact, vc1 bleeding controlled, No redness/swelling at site. Pressure dressing applied. Administered Medications: 01/26 22:53 Drug: Tippo PO 10 mg-325 mg 1 tabs Route: PO; vc1 01/27 01:59 Drug: HYDROcodone-acetaminophen PO 5 mg-325 mg 1 tabs Route: PO; pf1 01:59 Drug: Promethazine PO 25 mg Route: PO; pf1 Medication: 01:48 VIS not applicable for this client. vc1 Outcome: 01:40 Discharge ordered by MD. sp4 02:16 Discharged to home ambulatory. vc1 02:16 Condition: good 02:16 Discharge instructions given to patient, Instructed on discharge instructions, follow up and referral plans. Demonstrated understanding of instructions, follow-up care. 02:17 Patient left the ED. vc1 Signatures: Dispatcher [employer] EDAK Radha Moscoso am2 Maria M Gonzalez RN RN vc1 Jessica Da Silva RN RN pf1 Avel Kelley MD MD sp4 Michelle Maddox, TABATHA RN cm10
--- NOTE | 2023-01-27 01:41 | EDPHYS ---
Physician Documentation [facility] Name: Cathi Zaldivar Age: 42 yrs Sex: Female : 1980 Arrival Date: 01/26/2023 Time: 22:24 Bed 20 Private MD: ED Physician Avel Kelley HPI: 01/26 22:28 This 42 yrs old Female presents to ER via Unassigned with complaints of Fall sp4 Injury, Back Pain, right side pain. 01/27 04:11 6-year-old female with history of end-stage renal disease, on hemodialysis with last sp4 hemodialysis yesterday presents for acute fall at the restaurant. Patient states she slipped and fell at a restaurant causing head injury, pain to the right thoracic cage, and pain in the lower back. Patient is requesting pain medications. . Historical: - Allergies: 01/26 22:34 ambien; cm10 22:34 Codeine; cm10 22:34 GABAPENTIN; cm10 22:34 GUAIFENESIN; cm10 22:34 Lisinopril; cm10 22:34 Morphine; cm10 22:34 Nitrofurantoin Macrocrystal; cm10 22:34 PENICILLINS; cm10 22:34 Prolixin; cm10 22:34 Seroquel; cm10 22:34 Tape; cm10 22:34 zolpidem tartrate; cm10 - PMHx: 22:34 "mental problems"; cardiac arrest; CHF; chronic kidney disease; cyclic vomiting cm10 syndrome; Diabetes - NIDDM; Dialysis; m-w-f; ENCEPHALOPATHY; Gastroparesis; Hypertension; ibs; liver failure; PERIPHERAL NEUROPATHY; pseudo aneurysm R groin; Seizures; - PSHx: 22:34 2 heart stents; section; dialysis catheter R chest wall; eye removed; cm10 - Immunization history:: Adult Immunizations up to date. - Social history:: Smoking status: Patient reports the use of cigarette tobacco products, denies chronic smoking, but will smoke occasionally. - Family history:: not pertinent. ROS: 01/27 04:11 Constitutional: Negative for fever, chills, and weight loss, Back: Positive for fall sp4 with reported back pain and injury MS/Extremity: Negative for injury and deformity, positive for acute fall with reported back injury All other systems are negative. Exam: 04:11 Constitutional: This is a well developed, well nourished patient who is awake, alert, sp4 and in no acute distress. Signs of chronic kidney disease, right upper arm dialysis fistula with palpable thrill, overall signs of physical deconditioning, there are bilateral knee abrasions secondary to acute fall. Head/Face: Normocephalic, atraumatic. Eyes: Pupils equal round and reactive to light, extra-ocular motions intact. Lids and lashes normal. Conjunctiva and sclera are not injected. Cornea within normal limits. Periorbital areas with no swelling, redness, or edema. ENT: Nares patent. No nasal discharge, no septal abnormalities noted. Tympanic membranes are normal and external auditory canals are clear. Oropharynx with no redness, swelling, or masses, exudates, or evidence of obstruction, uvula midline. Mucous membranes moist. Neck: Trachea midline, no thyromegaly or masses palpated, and no cervical lymphadenopathy. Supple, full range of motion without nuchal rigidity, or vertebral point tenderness. Chest/axilla: Normal chest wall appearance and motion. Nontender with no deformity. No lesions are appreciated. Cardiovascular: Regular rate and rhythm with a normal S1 and S2. No gallops, murmurs, or rubs. Normal PMI, no JVD. No pulse deficits. Respiratory: Lungs have equal breath sounds bilaterally, clear to auscultation and percussion. No rales, rhonchi or wheezes noted. No increased work of breathing, no retractions or nasal flaring. Abdomen/GI: Soft, non-tender, with normal bowel sounds. No distension or tympany. No guarding or rebound. No evidence of tenderness throughout. Back: No spinal tenderness. No costovertebral tenderness. Bilateral paraspinous musculature tenderness Skin: Warm, dry with normal turgor. Normal color with no rashes, no lesions, and no evidence of cellulitis. MS/ Extremity: Pulses equal, no cyanosis. Neurovascular intact. Full, normal range of motion. Bilateral knee abrasions Neuro: Awake and alert, GCS 15, oriented to person, place, time, and situation. Cranial nerves II-XII grossly intact. Motor strength 5/5 in all extremities. Sensory grossly intact. Psych: Awake, alert, with orientation to person, place and time. Behavior, mood, and affect are within normal limits Vital Signs: 01/26 22:32 BP 220 / 106; Pulse 92; Resp 18; Temp 98.4(TE); Pulse Ox 100% on R/A; Weight 74 kg; cm10 Pain 02/28; 23:00 BP 230 / 104; Pulse 104; Resp 18; Pulse Ox 100% ; vc1 01/27 00:00 BP 231 / 97; Pulse 93; Resp 16; Pulse Ox 100% ; vc1 01:00 BP 189 / 89; Pulse 91; Resp 17; Pulse Ox 100% ; vc1 01/26 22:32 Pain Scale: Adult cm10 MDM: 01/26 22:33 Patient medically screened. sp4 01/27 01:34 ED course: IMPRESSION: 1. No acute intracranial findings. 2. No fracture or sp4 malalignment of the cervical spine.. ED course: IMPRESSION: No evidence of solid organ injury or traumatic bony findings on this noncontrasted CT of the chest, abdomen, and pelvis. Electronically signed by: Emma Mai MD 01/27/2023 12:22 AM. 01:39 Differential diagnosis: abrasion, closed head injury, contusion, fracture, multiple sp4 trauma, sprain, strain. Data reviewed: vital signs, nurses notes. Data reviewed: radiologic studies, CT scan. ED course: CT scan reveals no sign of acute traumatic injury, patient is stable for discharge home. . 04:11 Consideration of Admission/Observation Escalation of care including sp4 admission/observation considered. 01/26 22:37 Order name: CT Traumagram (Head C Spine CAP wo con) sp4 Administered Medications: 01/26 22:53 Drug: Hewett PO 10 mg-325 mg 1 tabs Route: PO; vc1 01/27 01:59 Drug: HYDROcodone-acetaminophen PO 5 mg-325 mg 1 tabs Route: PO; pf1 01:59 Drug: Promethazine PO 25 mg Route: PO; pf1 Disposition Summary: 01/27/23 01:40 Discharge Ordered Location: Home sp4 Problem: new sp4 Symptoms: have improved sp4 Condition: Stable sp4 Diagnosis - Acute head injury, acute fall, acute pelvic contusion, acute lumbar sprain, sp4 Followup: sp4 - With: Private Physician - When: 24 Hours - Reason: Recheck today's complaints Discharge Instructions: - Discharge Summary Sheet sp4 - Contusion, [id number] sp4 Forms: - Patient Portal Instructions sp4 Signatures: Dispatcher [employer] Maria M Herzog RN RN vc1 Jessica Da Silva RN RN pf1 Avel Kelley MD MD sp4 Michelle Maddox RN RN cm10
[2023-01-27] MEDS ORDERED: PROMETHAZINE 25 MG TABLET ONE (02:05)
[2023-01-27] MEDS ORDERED: HYDROCODONE/APAP 5/325 MG TAB ONE (02:06)
[2023-01-27 02:29] VITALS: TEMP 98.4; O2SAT 100
[2023-01-27 02:33] VITALS: BP 189/89
--- NOTE | 2023-01-27 10:43 | RAD REPORT ---
EXAM DESCRIPTION: CT - Head C Spine Cap Wo Con - 01/27/2023 7:09 am CLINICAL HISTORY: The patient is 42 years old and is Female; fall, head injury, back injury TECHNIQUE: Axial computed tomography images of the head/brain and cervical spine without intravenous contrast. Sagittal and coronal reformatted images were created and reviewed. This CT exam was pe rformed using one or more of the following dose reduction techniques: automated exposure control, a djustment of the mA and/or kV according to patient size, and/or use of iterative reconstruction techn ique. COMPARISON: No relevant prior studies available. FINDINGS: BRAIN: Unremarkable. No hemorrhage. No significant white matter disease. No edema. VENTRICLES: Unremarkable. No ventriculomegaly. SKULL: No acute fracture. SINUSES: Unremarkable as visualized. No acute sinusitis. MASTOID AIR CELLS: Unremarkable as visualized. No mastoid effusion. ORBITS: A prosthetic left globe is present. VERTEBRAE: The vertebral body heights and alignment are maintained. No acute fracture. DISCS/SPINAL CANAL/NEURAL FORAMINA: The intervertebral disc spaces are maintained. No spinal long l stenosis. SOFT TISSUES: The soft tissues are normal. LUNG APICES: Unremarkable as visualized. IMPRESSION: 1. No acute intracranial findings. 2. No fracture or malalignment of the cervical spine. EXAM DESCRIPTION: CT Chest, Abdomen and Pelvis Without Intravenous Contrast CLINICAL HISTORY: The patient is 42 years old and is Female; fall, head injury, back injury TECHNIQUE: Axial computed tomography images of the chest, abdomen and pelvis without intravenous con trast. Sagittal and coronal reformatted images were created and reviewed. This CT exam was perfor med using one or more of the following dose reduction techniques: automated exposure control, adjus tment of the mA and/or kV according to patient size, and/or use of iterative reconstruction technique . COMPARISON: No relevant prior studies available. FINDINGS: CHEST: LUNGS: The lungs are clear of focal opacity, mass, or consolidation. PLEURAL SPACE: Unremarkable. No significant effusion. No pneumothorax. HEART: No cardiomegaly. No pericardial effusion. ABDOMEN: LIVER: Homogeneous without focal mass. GALLBLADDER AND BILE DUCTS: The gallbladder is contracted with a few calcified gallstones present . PANCREAS: Unremarkable. No ductal dilation. SPLEEN: Unremarkable. ADRENALS: Unremarkable. No mass. KIDNEYS AND URETERS: The kidneys are atrophic. There is no hydronephrosis or hydroureter of eithe r kidney. No obstructing renal or ureteral calculus is seen. STOMACH AND BOWEL: The stomach is well distended with food contents. The small bowel is normal in caliber. Stool is present throughout colon. There is no mucosal thickening or evidence of obstructio n. PELVIS: APPENDIX: No findings to suggest acute appendicitis. BLADDER: The bladder is not well distended. REPRODUCTIVE: Unremarkable as visualized. CHEST, ABDOMEN and PELVIS: INTRAPERITONEAL SPACE: Unremarkable. No significant fluid collection. No free air. BONES/JOINTS: There is no acute fracture of the visualized axial and appendicular skeleton. The v ertebral body heights and alignment are maintained. SOFT TISSUES: The soft tissues are normal. VASCULATURE: Extensive atherosclerosis of the vasculature throughout the abdomen and pelvis is no rohit. No aortic aneurysm. LYMPH NODES: Unremarkable. No enlarged lymph nodes. IMPRESSION: No evidence of solid organ injury or traumatic bony findings on this noncontrasted CT of the chest, abdomen, and pelvis. Electronically signed by: Emma Mai MD 01/27/2023 12:22 AM CDT Due to temporary technical issues with the PACS/Fluency reporting system, reports are being signed by the in house radiologist without review as a courtesy to ensure prompt reporting. The interpreting r adiologist is fully responsible for the content of the report.
== END 2023-01-27 02:17 | disposition home or self-care (01) ==
LOC: ER 22:24
DX: S09.90XA Unspecified injury of head, initial encounter (principal); S33.5XXA Sprain of ligaments of lumbar spine, initial encounter; S30.0XXA Contusion of lower back and pelvis, initial encounter; W18.30XA Fall on same level, unspecified, initial encounter; E11.22 Type 2 diabetes mellitus with diabetic chronic kidney disease; I13.2 Hypertensive heart and chronic kidney disease with heart failure and with stage 5 chronic kidney disease, or end stage renal disease; I50.9 Heart failure, unspecified; N18.6 End stage renal disease; Z99.2 Dependence on renal dialysis; F17.210 Nicotine dependence, cigarettes, uncomplicated; Z95.818 Presence of other cardiac implants and grafts
CPT/HCPCS: 70450; 71250; 72125; Q0169

== ENCOUNTER 2023-03-08 17:10 | Emergency (ER) | payer MEDICARE, OTHER ==
[2023-03-08] MEDS ORDERED: HYDRALAZINE HCL 20 MG/ML VIAL ONE (18:32)
[2023-03-08] MEDS ORDERED: ONDANSETRON 4 MG/2 ML VIAL ONE (18:33)
--- NOTE | 2023-03-08 19:24 | RAD REPORT ---
EXAM DESCRIPTION: CT - Abdomen Pelvis Wo Contrast - 03/08/2023 6:30 pm CLINICAL HISTORY: ABD PAIN COMPARISON: Abdomen Pelvis Wo Contrast dated 12/09/2022; Abdomen Pelvis Wo Contrast dated 3; Stone Protocol dated 06/15/2022; Abdomen Pelvis Wo Contrast dated 03/24/2022; Abdomen Exam Limite d dated 12/25/2022 TECHNIQUE: Thin cut axial CT imaging of the abdomen and pelvis was performed without IV contrast. Mu ltiplanar reformats were generated and reviewed. All CT scans are performed using dose optimization technique as appropriate and may include automated exposure control or mA/KV adjustment according to patient size. FINDINGS: No suspicious findings in the lung bases. The liver, adrenal glands, spleen, and pancreas show no suspicious findings. Gallbladder is slightly more distended since the prior exam, again showing wall thickening and internal small stones with lay ering echogenic sludge. Pericholecystic and juan c hepatis fat stranding, mildly progressive since the prior exam. Atrophic changes of both kidneys, without suspicious parenchymal findings within limits of noncontras t technique. No evidence of radiopaque calculi or hydroureteronephrosis. No dilated bowel loops or bowel wall thickening. Fluid opacification of nondistended small bowel and ascending colon, nonspecific. No free air, fluid collections, or inflammatory stranding. No hernia, m ass or bulky lymphadenopathy. The urinary bladder is suboptimally distended, again with diffuse wall thickening. Layering free fluid in the pelvis, slightly increased since the prior exam. Dominant left ovarian 3 cm cyst with marginal calcification/mineralization, stable in size. . No suspicious bony findings. IMPRESSION: Fluid opacification of that distended small bowel and ascending colon, could relate to d iarrheal state. Persistent wall thickening and slightly progressive pericholecystic fat stranding and gallbladder dis tention. Findings suggest chronic or acute on top of chronic cholecystitis. Mild free ascites, mildly increased since prior exam.
[2023-03-08 19:47] LABS: Absolute Lymphocytes (CBC) 1.3 K/uL (0.7-4.9); Lymphocytes % 31.5 % (15.3-44.8); MCV 90.6 fL (80-100); MPV 9.6 fL (7.6-11.3); RBC Red Blood Cell Count 2.98 M/uL (3.86-4.86)
[2023-03-08 19:58] LABS: Platelets 84 thou/uL (152-406)
[2023-03-08] MEDS ORDERED: PROMETHAZINE INJ 25 MG/ML AMP ONE (20:21)
--- NOTE | 2023-03-08 20:46 | EDPHYS ---
Physician Documentation [facility] Name: Cathi Zaldivar Age: 42 yrs Sex: Female : 1980 Arrival Date: 03/08/2023 Time: 17:10 Bed 14 Private MD: ED Physician Chip Persaud HPI: 03/08 18:25 This 42 yrs old Female presents to ER via Wheelchair with complaints of cp3 Abdominal Pain, Vomiting. 18:25 Patient is a 42-year-old female with a history of end-stage renal disease, CHF, "mental cp3 problems "who presents to the ED with generalized abdominal pain and intractable nausea and vomiting. Patient endorses she has a history of cyclical vomiting and has had nausea and vomiting symptoms all day and missed dialysis. 19:54 Severity of symptoms: At their worst the symptoms were severe in the emergency cp3 department the symptoms have improved. 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 me1 Historical: - Allergies: 17:21 ambien; me1 17:21 Codeine; me1 17:21 GABAPENTIN; me1 17:21 GUAIFENESIN; me1 17:21 Lisinopril; me1 17:21 Morphine; me1 17:21 Nitrofurantoin Macrocrystal; me1 17:21 PENICILLINS; me1 17:21 Prolixin; me1 17:21 Seroquel; me1 17:21 Tape; me1 17:21 zolpidem tartrate; me1 - PMHx: 17:21 "mental problems"; cardiac arrest; CHF; chronic kidney disease; cyclic vomiting me1 syndrome; Diabetes - NIDDM; Dialysis; m-w-f; ENCEPHALOPATHY; Gastroparesis; Hypertension; ibs; liver failure; PERIPHERAL NEUROPATHY; pseudo aneurysm R groin; Seizures; - PSHx: 17:21 2 heart stents; section; dialysis catheter R chest wall; eye removed; me1 - Immunization history:: Adult Immunizations up to date. - Social history:: Smoking status: Patient reports the use of cigarette tobacco products, a pack a week but stopped 4 days ago.. - Family history:: not pertinent. ROS: 18:25 Constitutional: Negative for fever, chills, and weight loss, cp3 18:25 Eyes: Negative for injury, pain, redness, and discharge, ENT: Negative for injury, pain, and discharge, Neck: Negative for injury, pain, and swelling, Cardiovascular: Negative for chest pain, palpitations, and edema, Respiratory: Negative for shortness of breath, cough, wheezing, and pleuritic chest pain, Back: Negative for injury and pain, MS/Extremity: Negative for injury and deformity, Skin: Negative for injury, rash, and discoloration, Neuro: Negative for headache, weakness, numbness, tingling, and seizure, 18:25 Abdomen/GI: Positive for abdominal pain, nausea and vomiting, Exam: 18:25 Constitutional: This is a well developed, well nourished patient who is awake, alert, cp3 and in no acute distress. Head/Face: Normocephalic, atraumatic. Eyes: Pupils equal round and reactive to light, extra-ocular motions intact. Lids and lashes normal. Conjunctiva and sclera are non-icteric and not injected. Cornea within normal limits. Periorbital areas with no swelling, redness, or edema. ENT: Nares patent. No nasal discharge, no septal abnormalities noted. Tympanic membranes are normal and external auditory canals are clear. Oropharynx with no redness, swelling, or masses, exudates, or evidence of obstruction, uvula midline. Mucous membranes moist. Neck: Trachea midline, no thyromegaly or masses palpated, and no cervical lymphadenopathy. Supple, full range of motion without nuchal rigidity, or vertebral point tenderness. No Meningismus. Chest/axilla: Normal chest wall appearance and motion. Nontender with no deformity. No lesions are appreciated. Cardiovascular: Regular rate and rhythm with a normal S1 and S2. No gallops, murmurs, or rubs. Normal PMI, no JVD. No pulse deficits. Respiratory: Lungs have equal breath sounds bilaterally, clear to auscultation and percussion. No rales, rhonchi or wheezes noted. No increased work of breathing, no retractions or nasal flaring. Abdomen/GI: Soft, non-tender, with normal bowel sounds. No distension or tympany. No guarding or rebound. No evidence of tenderness throughout. Back: No spinal tenderness. No costovertebral tenderness. Full range of motion. Skin: Warm, dry with normal turgor. Normal color with no rashes, no lesions, and no evidence of cellulitis. MS/ Extremity: Pulses equal, no cyanosis. Neurovascular intact. Full, normal range of motion. Neuro: Awake and alert, GCS 15, oriented to person, place, time, and situation. Cranial nerves II-XII grossly intact. Motor strength 5/5 in all extremities. Sensory grossly intact. Cerebellar exam normal. Normal gait. Psych: Awake, alert, with orientation to person, place and time. Behavior, mood, and affect are within normal limits. Vital Signs: 17:19 BP 232 / 95 LA Sitting; Pulse 67; Resp 17; Temp 98.2(TE); Pulse Ox 98% on R/A; Weight me1 72.57 kg; Height 5 ft. 1 in. ; Pain 9/10; 19:00 BP 224 / 100; Pulse 69; Resp 18; Pulse Ox 100% on R/A; Pain 10/10; pf1 20:00 BP 204 / 103; Pulse 68; Resp 16; Pulse Ox 100% on R/A; pf1 21:00 BP 172 / 76; Pulse 72; Resp 16; Pulse Ox 100% on R/A; Pain 7/10; pf1 17:19 Body Mass Index 30.23 (72.57 kg, 154.94 cm) me1 17:19 Pain Scale: Adult me1 19:00 Pain Scale: Adult pf1 21:00 Pain Scale: Adult pf1 MDM: 17:21 Patient medically screened. cp3 20:35 Data reviewed: vital signs. ED course: BP IMPROVED TO 175/122. cp3 20:42 Differential diagnosis: Nonspecific abd pain, gastritis, CHRONIC ABDOMINAL PAIN, cp3 CYCLICAL VOMITING. 20:42 Consideration of Admission/Observation Escalation of care including cp3 admission/observation considered. BP IMPROVED AND PAIN RESOLVED. ED course: BP CONTINUES TO IMPROVED TO 177/76 . PATIENT FEELING BETTER AND WANTS TO GO HOME. 20:42 ED course: PATIENT PLANS TO DIALYZE IN THE MORNING. cp3 03/08 18:11 Order name: CBC with Diff; Complete Time: 20:05 cp3 03/08 20:05 Interpretation: WBC 4.20; RBC 2.98; HGB 9.3; HCT 27.0; MCV 90.6; MCH 31.1; MCHC 34.4; cp3 PLT 84; RDW 18.6; MPV 9.6; YASMINE% 58.8; LYM% 31.5; MN% 6.3; EOSINOPHIL % 2.0; BASO% 1.4; NEUT A 2.5; LYMA 1.3; MNA 0.3; EOSA 0.1; BASOA 0.1. 03/08 18:11 Order name: Comprehensive Metabolic Panel cp3 03/08 18:11 Order name: CT Abd/Pelvis - Without Contrast; Complete Time: 19:49 3 03/08 18:11 Order name: EKG; Complete Time: 18:12 cp3 03/08 18:11 Order name: Saline Lock; Complete Time: 19:24 cp3 Administered Medications: 20:20 Drug: Ondansetron IVP 4 mg IVP once; over 2 minutes Route: IVP; Site: left upper arm; pf1 21:00 Follow up: Response: No adverse reaction; Marked relief of symptoms pf1 20:20 Drug: hydrALAZINE IVP 10 mg IVP once Route: IVP; Site: left upper arm; pf1 21:00 Follow up: Response: No adverse reaction; Marked relief of symptoms pf1 20:22 Drug: Promethazine IM 25 mg IM once Route: IM; Site: left gluteus; pf1 21:10 Follow up: Response: No adverse reaction; Marked relief of symptoms pf1 Disposition Summary: 03/08/23 20:46 Discharge Ordered Notes: Location: Home cp3 Condition: Fair cp3 Problem: new cp3 Diagnosis - Cyclical vomiting, not intractable cp3 - End stage renal disease cp3 - Abdominal pain, Generalized cp3 - Essential (primary) hypertension cp3 Followup: cp3 - With: Private Physician - When: - Reason: If symptoms return Discharge Instructions: - Discharge Summary Sheet cp3 - Abdominal Pain, Adult cp3 - Nausea and Vomiting, Adult, [id number] cp3 - Dialysis cp3 - End-Stage Kidney Disease cp3 Forms: - Medication Reconciliation Form cp3 - Thank You Letter cp3 - Antibiotic Education cp3 - Prescription Opioid Use cp3 - Patient Portal Instructions cp3 - Leadership Thank You Letter cp3 Prescriptions: - Zofran 4 mg Oral Tablet - take 1 tablet by ORAL route every 12 hours As needed; 20 tablet; Refills: 0, cp3 Product Selection Permitted Signatures: Dispatcher [employer] Chip Cotton MD MD cp3 Jessica Da Silva, RN RN pf1 Gina Berrios, RN RN me1
--- NOTE | 2023-03-08 20:46 | ER ---
Nurse's Notes [facility] Name: Cathi Zaldivar Age: 42 yrs Sex: Female : 1980 Arrival Date: 03/08/2023 Time: 17:10 Bed 14 Private MD: Diagnosis: Cyclical vomiting, not intractable;End stage renal disease;Abdominal pain, Generalized;Essential (primary) hypertension Presentation: 03/08 17:19 Chief complaint: Patient states: n/v/d and mid upper abdominal pain that started at 1 me1 am. Coronavirus screen: Vaccine status: Patient reports being unvaccinated. diarrhea, nausea, vomiting. Ebola Screen: No symptoms or risks identified at this time. Initial Sepsis Screen: Does the patient meet any 2 criteria? No. Patient's initial sepsis screen is negative. Does the patient have a suspected source of infection? No. Patient's initial sepsis screen is negative. Risk Assessment: Do you want to hurt yourself or someone else? Patient reports no desire to harm self or others. Onset of symptoms was March 08, 2023 at 01:00. 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 me1 Historical: - Allergies: 17:21 ambien; me1 17:21 Codeine; me1 17:21 GABAPENTIN; me1 17:21 GUAIFENESIN; me1 17:21 Lisinopril; me1 17:21 Morphine; me1 17:21 Nitrofurantoin Macrocrystal; me1 17:21 PENICILLINS; me1 17:21 Prolixin; me1 17:21 Seroquel; me1 17:21 Tape; me1 17:21 zolpidem tartrate; me1 - PMHx: 17:21 "mental problems"; cardiac arrest; CHF; chronic kidney disease; cyclic vomiting me1 syndrome; Diabetes - NIDDM; Dialysis; m-w-f; ENCEPHALOPATHY; Gastroparesis; Hypertension; ibs; liver failure; PERIPHERAL NEUROPATHY; pseudo aneurysm R groin; Seizures; - PSHx: 17:21 2 heart stents; section; dialysis catheter R chest wall; eye removed; me1 - Immunization history:: Adult Immunizations up to date. - Social history:: Smoking status: Patient reports the use of cigarette tobacco products, a pack a week but stopped 4 days ago.. - Family history:: not pertinent. Screenin:15 [facility] ED Fall Risk Assessment (Adult) History of falling in the last 3 months, kc6 including since admission No falls in past 3 months (0 pts) Confusion or Disorientation No (0 pts) Intoxicated or Sedated No (0 pts) Impaired Gait No (0 pts) Mobility Assist Device Used No (0 pt) Altered Elimination Yes (1 pt) Score/Fall Risk Level 0 - 2 = Low Risk. Abuse screen: Denies threats or abuse. Denies injuries from another. Nutritional screening: No deficits noted. Tuberculosis screening: No symptoms or risk factors identified. Assessment: 18:15 General: Appears in no apparent distress. uncomfortable, Behavior is calm, cooperative, kc6 appropriate for age, crying. Pain: Complains of pain in epigastric area. Neuro: Level of Consciousness is awake, alert, obeys commands, Oriented to person, place, time, situation, Appropriate for age. Cardiovascular: Capillary refill < 3 seconds Dialysis shunt: in the right arm, with palpable thrill, with auscultated bruit, with no erythema, with no edema, no bleeding noted. Respiratory: Airway is patent Trachea midline Respiratory effort is even, unlabored, Respiratory pattern is regular, symmetrical. GI: Abdomen is flat, non-distended, Bowel sounds present X 4 quads. Abd is soft X 4 quads Reports diarrhea, nausea, vomiting. : No signs and/or symptoms were reported regarding the genitourinary system. EENT: No signs and/or symptoms were reported regarding the EENT system. Derm: No signs and/or symptoms reported regarding the dermatologic system. Skin is intact, is healthy with good turgor, Skin is dry, Skin is pale, Skin temperature is warm. Musculoskeletal: No signs and/or symptoms reported regarding the musculoskeletal system. Circulation, motion, and sensation intact. Capillary refill < 3 seconds, Range of motion: intact in all extremities. 18:30 Reassessment: requested assistance from Dr. Persaud for IV access. kc6 19:00 General: Appears in no apparent distress. uncomfortable, Behavior is calm, cooperative, pf1 appropriate for age, quiet. 19:00 Pain: Complains of pain in abdomen and epigastric area Pain currently is 10 out of 10 pf1 on a pain scale. Neuro: No deficits noted. Level of Consciousness is awake, alert, obeys commands, Oriented to person, place, time, situation. Cardiovascular: No deficits noted. Capillary refill < 3 seconds Patient's skin is warm and dry. Respiratory: No deficits noted. Airway is patent Respiratory effort is even, unlabored, Respiratory pattern is regular, symmetrical. GI: Abdomen is round non-distended, Bowel sounds present X 4 quads. Reports upper abdominal pain, diarrhea, nausea, vomiting, since 0100 this AM. : No deficits noted. No signs and/or symptoms were reported regarding the genitourinary system. EENT: No deficits noted. No signs and/or symptoms were reported regarding the EENT system. Derm: No deficits noted. No signs and/or symptoms reported regarding the dermatologic system. 20:00 Reassessment: Patient appears in no apparent distress at this time. Patient and/or pf1 family updated on plan of care and expected duration. Pain level reassessed. Patient is alert, oriented x 3, equal unlabored respirations, skin warm/dry/pink. Patient states symptoms have improved. Vital Signs: 17:19 BP 232 / 95 LA Sitting; Pulse 67; Resp 17; Temp 98.2(TE); Pulse Ox 98% on R/A; Weight me1 72.57 kg; Height 5 ft. 1 in. ; Pain 9/10; 19:00 BP 224 / 100; Pulse 69; Resp 18; Pulse Ox 100% on R/A; Pain 10/10; pf1 20:00 BP 204 / 103; Pulse 68; Resp 16; Pulse Ox 100% on R/A; pf1 21:00 BP 172 / 76; Pulse 72; Resp 16; Pulse Ox 100% on R/A; Pain 7/10; pf1 17:19 Body Mass Index 30.23 (72.57 kg, 154.94 cm) me1 17:19 Pain Scale: Adult me1 19:00 Pain Scale: Adult pf1 21:00 Pain Scale: Adult pf1 ED Course: 17:13 Patient arrived in ED. mr 17:14 Sarah Saleh, TABATHA is Primary Nurse. ld1 17:14 Chip Persaud MD is Attending Physician. cp3 17:21 Triage completed. me1 17:21 Arm band placed on Patient placed in waiting room. me1 18:15 Patient has correct armband on for positive identification. Bed in low position. Call kc6 light in reach. Side rails up X2. Client placed on continuous cardiac and pulse oximetry monitoring. NIBP monitoring applied. 18:15 Missed attempt(s): 22 gauge in right breast. kc6 18:31 CT Abd/Pelvis - Without Contrast In Process Unspecified. EDMS 19:00 Report given to TABATHA Olivares. kc6 19:24 Lipase Sent. pf1 19:24 Comprehensive Metabolic Panel Sent. pf1 19:24 CBC with Diff Sent. pf1 19:24 Inserted saline lock: 24 gauge in right ,using aseptic technique. SHOULDER. bp 19:58 Inserted saline lock: 20 gauge in left upper arm, using aseptic technique. ultrasound as6 guided, long catheter. 20:27 Lipase Sent. as6 20:27 Comprehensive Metabolic Panel Sent. as6 21:10 Provided Education on: prescription education. pf1 21:11 No provider procedures requiring assistance completed. IV discontinued, intact, pf1 bleeding controlled, No redness/swelling at site. Pressure dressing applied. Administered Medications: 20:20 Drug: Ondansetron IVP 4 mg IVP once; over 2 minutes Route: IVP; Site: left upper arm; pf1 21:00 Follow up: Response: No adverse reaction; Marked relief of symptoms pf1 20:20 Drug: hydrALAZINE IVP 10 mg IVP once Route: IVP; Site: left upper arm; pf1 21:00 Follow up: Response: No adverse reaction; Marked relief of symptoms pf1 20:22 Drug: Promethazine IM 25 mg IM once Route: IM; Site: left gluteus; pf1 21:10 Follow up: Response: No adverse reaction; Marked relief of symptoms pf1 Medication: 21:00 VIS not applicable for this client. pf1 Outcome: 20:46 Discharge ordered by . cp3 21:11 Discharged to home via wheelchair, with family, pf1 21:11 Condition: improved 21:11 Discharge instructions given to patient, Instructed on discharge instructions, follow up and referral plans. Demonstrated understanding of instructions, follow-up care, medications, Prescriptions given X 1, 21:12 Patient left the ED. pf1 Signatures: Dispatcher [employer] Chip Cotton MD MD cp3 Adela Reyes, Reg Reg mr AaliyahLatrell, RN RN bp Sarah Saleh, RN RN ld1 Yuri Mathis, RN RN as6 Lucero Jones RN RN kc6 Jessica Da Silva RN RN pf1 Gina Berrios RN RN me1 Corrections: (The following items were deleted from the chart) 19:10 19:10 Missed attempt(s): 22 gauge in right breast. kc6 kc6
[2023-03-08 21:26] LABS: Albumin 3.6 g/dL (3.4-5.0); Bilirubin Total 0.8 mg/dL (0.2-1.0); Potassium 5.5 mEq/L (3.5-5.1)
[2023-03-08 22:30] VITALS: BP 232/95; TEMP 98.2; O2SAT 98
== END 2023-03-08 21:12 | disposition home or self-care (01) ==
LOC: ER 17:10
DX: R11.15 Cyclical vomiting syndrome unrelated to migraine (principal); R10.84 Generalized abdominal pain; E11.22 Type 2 diabetes mellitus with diabetic chronic kidney disease; I13.2 Hypertensive heart and chronic kidney disease with heart failure and with stage 5 chronic kidney disease, or end stage renal disease; I50.9 Heart failure, unspecified; N18.6 End stage renal disease; Z99.2 Dependence on renal dialysis; Z88.0 Allergy status to penicillin; Z88.5 Allergy status to narcotic agent; Z88.8 Allergy status to other drugs, medicaments and biological substances; Z91.048 Other nonmedicinal substance allergy status
CPT/HCPCS: 85025; 36415; 80053; 74176; J2550; J0360; J2405; 93005

== ENCOUNTER 2023-04-05 15:19 | Emergency (ER) | payer MEDICARE, OTHER ==
[2023-04-05] MEDS ORDERED: cloNIDine HCL 0.1 MG TAB ONE (15:48)
[2023-04-05] MEDS ORDERED: HYDROCODONE/APAP 7.5/325 MG TAB ONE (15:48)
[2023-04-05] MEDS ORDERED: AMLODIPINE 5 MG TAB ONE (15:48)
[2023-04-05] MEDS ORDERED: HYDRALAZINE HCL 25 MG TABLET ONE (15:49)
--- NOTE | 2023-04-05 16:23 | RAD REPORT ---
EXAM DESCRIPTION: RAD - Tib Fib Left - 04/05/2023 4:08 pm CLINICAL HISTORY: PAIN COMPARISON: No comparisons FINDINGS: Mild diffuse osteopenia. Heavy vascular calcifications noted. No acute fracture or disloca tion seen. Mild pretibial soft tissue swelling.
--- OUTSIDE RECORDS SUMMARY | 2023-04-05 16:26 | XMS REPORT | Continuity of Care Document ---
:1980 Author Organization [facility] t Address [address] [facility] [address] [place] [address] Care Team Providers Name Role Phone SHARPLESS Primary Care Physician Unavailable ZURDO CHILD Attending Clinician Unavailable VELMA TOLLIVER Attending Clinician Unavailable Daquan_giovanna Attending Clinician Unavailable Nodal_J Attending Clinician Unavailable Vladimir_T Attending Clinician Unavailable RAJ WEST Attending Clinician Unavailable Jose Miguel Morin DO Attending Clinician Rosy BURNS, Brooke Ricci Attending Clinician [phone] Seth HOGUEC, Bessie Parks Attending Clinician [phone] Forrest Cruz Attending Clinician Unavailable Melany Gilbert Attending Clinician Pat BURNS, Sivna Brand Attending Clinician Isra BURNS, Rachel Lew Attending Clinician [phone] Robe BURNS, Holden Elmore Attending Clinician Magaly BURNS, Shanda Higuera Attending Clinician Aurelio Schumacher MD Attending Clinician Alesia Dodd Attending Clinician Joe BURNS, Mando Raphael Attending Clinician [phone] Jose Carlos BURNS, Veto Vincent Attending Clinician Juwan You MD Attending Clinician Sofi Roach MD Attending Clinician [phone] Gayle Jones RN Attending Clinician Unavailable [...] Clinician Sukhjinder Medina MD Attending Clinician Brisa BIN PILERHanane Rangel Attending Clinician MD JUWAN YOU Attending Clinician Unavailable Corin MAYS, Elodia Attending Clinician Unavailable Doctor Unassigned, [employer] Attending Clinician Unavailable MONA BHAT Attending Clinician [...] Clinician Unavailable Deja Cleaning DPM Attending Clinician [phone] Pc, Adc Echo Room 1 - [...] Clinician Unavailable Adán Horn MD Attending Clinician Yoly, Aimee Attending Clinician Unavailable Gary Manrique MD [...] YOU Admitting Clinician Unavailable Arun Espitia MD, Eze Vail Admitting Clinician [phone] Hui Wright Admitting Clinician HUI WRIGHT Admitting Clinician Unavailable Rei Waldron Admitting Clinician Unavailable MOISE BHAKTA Admitting Clinician Unavailable Danae Cha Admitting Clinician Joe Juráez Admitting Clinician Payers Payer Name Policy Type Policy Number Effective Date Expiration Date S karla MEDICARE PART A AND [id number] 2014 2021 B 00:00:00 00:00:[address] [facility] [id number] 2020 00:00:00 MEDICARE PART A \\T\\ [id number] 2014 B 00:00:00 MEDICAID OF [place] [id number] 2020 00:00:[id number] 2021 (MEDICARE 00:00:00 REPLACEMENT HMO) MEDICARE A B [id number] 2014 00:00:00 MEDICAID [place] [facility] [id number] 2016 00:00:00 Problems Condition Condition Condition Status Onset Resolution Last Treating Co mments Source Name Details Category Date Date Treatment Clinician Date AVF AVF Disease Active Univers (arteriove (arteriove 9- it y of nous nous 00:00: [place] fistula) fistula) 00 Medica l Branch GASTROPARE GASTROPAR Diagnosis Active 2021-02-10 Memoria HELENA/IBS-D ESISI/IBS- 7-16 21:41:00 l /ANEMIA D/ANEMIA 00:00: Vin Active 00 01/03/2021 [facility] End stage End stage Disease Active [place] [...] 2020-12-24 Mem oria PATIENT GI PATIENT GI 4-26 10:39:00 l CONSULT CONSULT 00:00: Vin REFRACTORY REFRACTORY 00 GASTRO GASTRO Active 10/14/2020 [facility] Malfunctio Malfunctio Disease Active Overview : Univers n of n of 6-03 Formattin ity of arterioven arterioven 00:00: g of this [place] ous ous 00 note Medical dialysis dialysis might be Bran ch fistula, fistula, different initial initial from the encounter encounter original. Added automatic ally from request for surgery [id number] Candidiasi Candidiasi Disease Active U nivers s [...] 09:39:00 l Active 00:00: Vin 07/12/2018 00 [facility] Pyogenic Pyogenic Disease Active 2017-06 Overview: Un lori granuloma granuloma 0-17 Formattin i ty of of of 00:00: g of this [place] conjunctiv conjunctiv 00 note Me dical a, right a, right might be Bran ch different from the original. 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 Eviscerat ion OS on 8 - Dr. 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 Added automatic ally from request for surgery [id number] ESRD (end ESRD (end Disease Active Overview: Univers stage stage 6-12 Formattin ity of renal renal 00:00: g of this [place] disease) disease) 00 note Medica l on on might be Branch dialysis dialysis different from the original. Added automatic ally from request for surgery [id number] Diabetes Diabetes Disease Active Metho di mellitus [...] Added automatic ally from request for surgery [id number] Neovascula Neovascula Disease Active U nivers r r 1-18 ity of glaucoma, [place], [place] Medica l Branch Increased Increased Disease Active Uni vers intraocula intraocula 1-18 it y of r pressure r pressure [place] [facility] [place] Fall Fall Disease Active 2016-06 Univers 0-13 ity of 00:00: [place] [address] Medical Branch Pneumonia Pneumonia Disease Active 2016-06 Uni vers 0-11 ity of 00:00: [place] [address] Medical Branch Diabetes Diabetes Disease Active 2016-06 Overview: Un lori mellitus mellitus 0-05 Formattin ity of 00:00: g of this [place] 00 note Medical might be Branch different from the original. Added automatic ally from request for surgery [id number] Pseudotumo Pseudotumo Disease Active U nivers r cerebri r cerebri 9-25 ity of 00:00: [address] Branch SANJUANA (acute SANJUANA (acute Disease Recurre [facility] kidney [facility] injury) injury) 00:00: Medical 00 Center Ulcer of Ulcer of Disease Recurre [facility] toe of toe of nce 7[facility] left foot left foot 00:00: Medi tawnya 00 Center Hyperglyce Hyperglyce Disease Recurre [facility] 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 nce 16 Pati kes type 2 type 2 00:00: [...] neuropathy 7-16 Pati kes 00:00: Medical 00 [facility] Cyclic Cyclic Disease Active [facility] vomiting vomiting 7[facility] syndrome syndrome 00:00: Medica l 00 Center Anxiety Anxiety Disease Active [facility] 00:[facility]: Medical 00 [facility] Hypertensi Hypertensi Disease Active [facility] ve ve 7[facility]16 [facility] emergency emergency 00:00: Medi tawnya 00 Center Ulcer of Ulcer of Disease Recurre [facility] toe of toe of nce [facility] left foot left foot 00:00: Medi tawnya 00 [facility] ACUTE RESP ACUTE Diagnosis Active 2016-09-09 Memoria FAILURE RESP 07-23 09:11:00 l FAILURE 00:00: Vin Active 00 07/23/2016 [facility] CONGESTION CONGESTIO Diagnosis Active 2016-07-24 [place] AMD N AMD 2 01:49:00 l DIARRHEA DIARRHEA 00:00: Jake gonzalez Active 00 07/23/2016 [facility] SOB/SWELLI SOB/SWELL Diagnosis Active 2015-062016-06-10 [place] NG ING Active 08-11 15:48:00 l 06/10/2016 00:00: Jake gonzalez [address] CHF/RENAL CHF/RENAL Diagnosis Active 2015-062016-06-24 Memoria DISEASE DISEASE 08-11 15:35:00 l Active 00:00: Vin 06/10/2016 00 [facility] Congestive Congestive Disease Active 2015-06 U T heart heart 08-11 Health failure failure 00:00: (CHF) (CHF) 00 Obesity Obesity Disease Active 2015-06 Univers (BMI (BMI 0-12 ity of 30-39.9) 30-39.9) 00:00: [place] [address] Medical Branch Hyperosmol Hyperosmol Disease Active 2015-06 U viviana ar ar 0-12 ity of non-ketoti non[place]ketoti [place] c state in 00 Me dical patient patient Branch with 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 Hyperglyce Hyperglyce Disease Active 2015-06 U viviana maryam maryam 0-11 ity of 00:00: [address] Branch Diabetic Diabetic Disease Active Unive [...] U nivers 5-07 ity of 00:00: [place] [facility] Bipolar 1 Bipolar 1 Disease Active Uni vers disorder disorder 5-07 ity of 00:00: [place] [facility] Suicidal Suicidal Disease Active Unive rs ideation ideation 5-05 ity of 00:00: [place] Medical [facility] 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, 1.5, 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 00 [place] Hematuria, Hematuria, Disease Active U viviana undiagnose undiagnose 2-16 it y of d cause d cause 00:00: [place] [facility] Cystitis Cystitis Disease Active 2014-06 [...] 00:00: [place] cancer in cancer in 00 [facility] female female Branch Family Family Disease [...] ABDOMINAL Diagnosis Active 2014-06-26 Memoria PAIN, PAIN, - 05:44:00 l SEIZURES SEIZURES 00:00: Jake n Active 00 06/26/2013 [facility] ABD PAIN ABD PAIN Diagnosis Active 2012-062013-04-19 Memoria Active 21:51:00 l 04/14/2013 19:00: Jake gonzalez 00 [facility] GASTROPERI GASTROPER Diagnosis Active 2012-09-13 Memoria SIS DAISY 2- 15:17:00 l Active 00:00: Forman 08/02/2012 00 [facility] ABDOMINAL ABDOMINAL Diagnosis Active 2012-03-14 Memoria PAIN PAIN 03-14 16:56:00 l Active 14:00: Forman 03/14/2012 00 [facility] NAUSEA, NAUSEA, Diagnosis Active 2012-03-14 Memoria VOMITING VOMITING 03-14 13:25:00 l Active 08:00: Forman 03/14/2012 00 [facility] N/V N/V Diagnosis Active 2011-12-08 Mem oria INABILITY INABILITY 11-27 11:14:00 l TO TO 00:00: Vin TOLERATE TOLERATE 00 PO PO Active 11/28/2011 [facility] VOMITTING VOMITTING Diagnosis Active 2011-11-28 Memoria Active 11-27 16:28:00 l 11/28/2011 00:00: Jake gonzalez [address] VOMITTING, VOMITTING Diagnosis Active 2011-09-18 Memoria HIGH BLOOD , HIGH 09-17 09:45:00 l SUGAR BLOOD 00:00: Vin SUGAR 00 Active 09/18/2011 [facility] Methicilli Methicill Problem Active 2021-01-31 Memoria n in 08-31 22:29:25 l resistant resistant 00:00: Herm naeem Staphyloco Staphyloco 00 ccus ccus aureus aureus (organism) (organism) Active 09/01/2011 Problem 01/31/2021 09/01/11 - Elbow wound
Problem added by Discern Expert. [facility] MRSA MRSA Problem Active 2012-03-16 Memor ia Active 08-31 09:11:30 l 09/01/2011 00:00: Jake gonzalez Problem 00 03/16/2012 <sup>1</oliveros p>09/01/11 - Elbow wound
<sup>2< /sup>Probl em added by Discern Expert. [facility] VOMITING, VOMITING, Diagnosis Active 2011-09-01 Memoria BLOOD BLOOD 08-30 03:19:00 l SUGAR SUGAR 00:00: Vin CAGLE READINGS 00 HIGH HIGH Active 08/31/2011 [facility] ELBOW ELBOW Diagnosis Active 2011-09-10 Me moria ABSCESS/HY ABSCESS/HY 08-30 16:26:00 l PERGLYCEMI PERGLYCEMI 00:00: He ally A A Active 00 08/31/2011 [facility] Hypokalemi Hypokalem Problem Active 2012-03-16 Memoria a ia Active 08-22 09:11:30 l 08/23/2011 00:00: Jake gonzalez Problem 00 03/16/2012 [facility] DKA DKA Diagnosis Active 2011-08-24 Mem oria Active 11:27:00 l 08/19/2011 00:00: Jake gonzalez [address] VOMITING VOMITING Diagnosis Active 2011-08-19 Memoria Active 16:21:00 l 08/19/2011 00:00: Jake gonzalez [address] Final: Final: Problem 2016-08-02 Mendoza janice Acute Acute 02:46:22 l respirator respirator He ally y failure, y failure, unspecifie unspecifie d whether d whether with with hypoxia or hypoxia or hypercapni hypercapni a a 08/02/2016 [facility] Hypoglycem Problem Inactiv 2012-03-16 Memoria ia Hypoglycem e 09:11:30 l ia Forman Inactive Problem 03/16/2012 [facility] Hypoglycem Hypoglyce Problem Inactiv 2013-04-22 Memoria ia maryam e 04:46:33 l (disorder) (disorder) He rmann Inactive Problem 04/22/2013 [facility] Gastropare Gastropar Problem Resolve 2021-01-31 Memoria sis esis d 22:29:25 l (disorder) (disorder) He rmann Resolved Problem 01/31/2021 [facility] Hypertensi Hypertens Problem Resolve 2021-01-31 Memoria ve montse d 22:29:25 l disorder, disorder, Herm naeem systemic systemic arterial arterial (disorder) (disorder) Resolved Problem 01/31/2021 [facility] Psychiatri Psychiatr Problem Resolve 2021-01-31 Memoria c ic d 22:29:25 l behavioral behavioral He rmann disability disability (finding) (finding) Resolved Problem 01/31/2021 [facility] Seizure Seizure Problem Resolve 2021-01-31 M emoria (finding) (finding) d 22:29:25 l Resolved Forman Problem 01/31/2021 [facility] Hypertensi Hypertens Problem Active 2012-03-16 Memoria on ion Active 09:11:30 l Problem Forman 03/16/2012 [facility] Hypomagnes Hypomagne Problem Active 2013-04-22 Memoria emia semia 04:46:33 l Active Vin Problem 04/22/2013 [facility] Nausea and Nausea Problem Active 2012-03-16 Memoria vomiting and 09:11:30 l vomiting Forman Active Problem 03/16/2012 [facility] ENCNTR FOR ENCNTR Diagnosis Active 2020-12-24 Memoria GENERAL FOR 10:39:00 l ADULT GENERAL Forman MEDICAL ADULT EXAM W/ MEDICAL EXAM W/ Active [facility] DMI DMI Diagnosis Active 2011-08-24 Mem oria KETOACD KETOACD 11:27:00 l UNCONTROLD UNCONTROLD He rmann Active [facility] OTHER OTHER Diagnosis Active 2011-09-10 Mem oria GENERAL GENERAL 16:26:00 l SYMPTOMS SYMPTOMS Jake n Active [facility] HEART HEART Diagnosis Active 2016-06-24 Mem oria FAILURE, FAILURE, 15:35:00 l UNSPECIFIE UNSPECIFIE He rmann D D Active [facility] ACUTE ACUTE Diagnosis Active 2016-09-09 Mem oria RESPIRATOR RESPIRATOR 09:11:00 l Y FAILURE, Y FAILURE, He rmann UNSP W UNSP W HYPOXI HYPOXI Active [facility] Nausea and Nausea Problem Resolve 2021-01-31 2021-01-31 Memoria vomiting and d 6-10 22:29:25 22:29:25 l (disorder) vomiting 00:00: Herm naeem (disorder) 00 Resolved 11/29/2011 Problem 01/31/2021 [facility] Hypokalemi Hypokalem Problem Resolve 2021-01-31 2021-01-31 Memoria a ia d 08-22 22:29:25 22:29:25 l (disorder) (disorder) 00:00: He rmann Resolved 00 08/23/2011 Problem 01/31/2021 [facility] Disorder Disorder Problem Resolve 2021-01-31 2021-01-31 Memoria of of d 08-22 22:29:25 22:29:25 l magnesium magnesium 00:00: Herm naeem metabolism metabolism 00 (disorder) (disorder) Resolved 08/23/2011 Problem 01/31/2021 [facility] Hyperglyce Hyperglyc Problem Resolve 2021-01-31 2021-01-31 Memoria maryam live d 08-19 22:29:25 22:29:25 l (disorder) (disorder) 00:00: He rmann Resolved 00 08/20/2011 Problem 01/31/2021 [facility] Ketoacidos Ketoacido Problem Resolve 2021-01-31 2021-01-31 Memoria is in sis in d 22:29:25 22:29:25 l diabetes diabetes 00:00: Jake n mellitus mellitus 00 (disorder) (disorder) Resolved 08/19/2011 Problem 01/31/2021 [facility] DKA DKA Problem Resolve 2013-04-22 2013-04-22 Memoria (diabetic (diabetic d 04:46:33 04:46:33 l ketoacidos ketoacidos 00:00: He ally es) es) 00 Resolved 08/19/2011 Problem 04/22/2013 [facility] History of Past Illness Condition Condition Condition Status Onset Resolution Last Treating Co mments Source Name Details Category Date Date Treatment Clinician Date Discharge Discharge Problem 2014-06-28 2014-06-28 Memoria Diagnosis: Diagnosis: 1- 16:34:37 16:34:37 l Gastropare Gastropare 06:00: He ally sis sis 00 06/26/2014 06/28/2014 [facility] Hyperglyce Hyperglyc Problem Inactiv 2012-03-16 2012-03-16 Memoria maryam emia e 3 09:11:30 09:11:30 l Inactive 00:00: Forman 08/20/2011 00 Problem 03/16/2012 [facility] Allergies, Adverse Reactions, Alerts Allergy [...] Univers INGREDI 9 ity of 00:00: [place] 00 Medical Branch Morphine Propensi Active Shortness Of itchy Methodi ty to Breath 4-13 st adverse 00:00: Hospita reaction 00 l s to drug Cephalex Propensi Active Hives 2017-0 Method i in ty to 7-31 st adverse 00:00: Hospita reaction 00 l s to drug Cephalex Propensi Active Hives 2017-0 Univer s in ty to 01-18 ity of adverse 00:00: [place] reaction 00 Medical s Branch CEPHALEX DRUG Active Hives 2018-0 Univers IN INGREDI 01-18 ity of 00:00: [place] 00 Medical Branch Cephalex Allergy Active Hives 2017-0 [place] in to 01-18 Health substanc 00:00: e 00 Adhesive Drug Active Swelling 2016-06 [place] Tape Allergy 2-14 Health 00:00: 00 Adhesive Propensi Active Swelling 2016- Tears off M ethodi Tape-Eric ty to 2-[address] icones adverse 00:00: Hospita reaction 00 l s to drug ADHESIVE DRUG Active Med Rash 2016- Univers TAPE-ERIC 2-14 ity of ICONES 00:00: [...] St ins Allergy Breath [facility] 00:[facility]: [place] [address] [facility] [place] Allergy Active Swelling throatthr UT [...] reaction 00 NUMBNESS l s to drug Lisinopr Propensi Active [...] Branch drug ZOLPIDEM DRUG Active Med Other-Cmnt [facility] ers TARTRATE INGREDI 1 ity of 00:00: [...] T ins to breath 2-27 reaction( Health [facility] 00:00: s): e HivesAirw ay closure Penicill Propensi Active Shortness [...] Class 2-27 ity of 00:00: [place] [address] [facility] Branch penicill Drug Active [facility] lisinopr Drug Active [facility] Ambien Drug Active [facility] Prolixin Drug Active [facility] penicill Drug Active [facility] lisinopr Drug Active [facility] Ambien Drug Active [facility] Prolixin Drug Active [facility] Tape Other Active [facility] penicill Drug Active [facility] lisinopr Drug Active [facility] Ambien Drug Active [facility] Prolixin Drug Active [facility] codeine Drug Active [facility] penicill Drug Active [facility] lisinopr Drug Active . [facility] Ambien Drug Active [facility] Prolixin Drug Active [facility] codeine Drug Active [facility] penicill Drug Active [facility] lisinopr Drug Active [facility] Ambien Drug Active [facility] Prolixin Drug Active [facility] penicill Drug Active [facility] lisinopr Drug Active [facility] Ambien Drug Active [facility] Prolixin Drug Active [facility] penicill Drug Active [facility] lisinopr Drug Active [facility] Ambien Drug Active [facility] Prolixin Drug Active [facility] penicill penicill Active Memori a ins ins l Forman codeine codeine Active Memoria l Vin morphine morphine Active Memori a l Vin lisinopr lisinopr Active Memori a il il l Vin Adhesive Adhesive Active Memori a Tape Tape l Vin Ambien Ambien Active Memoria l Forman Prolex Prolex Active Memoria DM DM l Vin Social History Social Habit Start Date Stop Date Quantity Comments Source Gender identity [facility] History of tobacco Cigarette Smoker [facility] Exposure to Yes [facility] SARS-CoV-2 (event) [facility] al Sexual orientation [facility] History of Social 2022-08-25 2022-08-[address] function 00:00:00 00:00:00 Hospital Tobacco use and 2021-05-14 2021-05-14 Smokeless [facility] exposure 00:00:00 00:00:00 tobacco non-user Hospital Social History 2020-12-24 2020-12-24 [facility] fatou 15:49:37 15:49:37 Alcohol intake 2017-12-17 2017-12-[address] [facility] [facility] 00:[facility] 00:[facility]:00 non-drinker of Medical Ce nter alcohol (finding) Cigarettes smoked 2017-01-03 2017-01-[address] [facility] current (pack per 00:00:00 00:00:00 Medical Center day) - Reported Cigarette 2017-01-03 2017-01-[address] [facility] pack-years 00:00:00 00:00:00 [facility] Tobacco Comment 2017-01-03 2017-01-03 patient stated MINERVA Hsieh 00:00:00 00:00:00 she stopped [address] month ago. Sex Ass[birth year] At [birth year] MINERVA Kevins 00:00:00 00:00:00 [facility] Smoking Status Start Date Stop Date Source Smokes tobacco daily 2021-05-14 00:00:00 [facility] Former smoker 2020-06-27 00:00:00 2020-06-27 00:00:00 [facility] Medications Ordered Filled Start Stop Current Ordering Indication Dosage Frequency Signature Comments Components Source Medication Medication Date Date Medication? Clinician (SIG) Name Name calcium Yes 1334mg Q.[id number] Take 1,334 Methodi acetate,domingo 1-18 [id number] mg by s t sphat bind, 13:02: 3D mouth 3 Hos whit (Phoslyra) 39 (three) l 667 mg (169 times a mg day. calcium)/5 mL solution cyproheptad Yes 4mg Q.[id number] Take 4 mg Methodi ine 1-18 [id number] by mouth [address] (PERIACTIN) 13:02: 3D (three) Hos whit 4 mg tablet 39 times a l day as needed for allergies. buPROPion Yes 300mg QD Take 300 Met hodi XL 1-[address] (WELLBUTRIN 13:02: mouth Hospi ta XL) 300 MG 39 daily. l 24 hr tablet ascorbic 0 Yes 500mg Q.[id number] Take 500 Methodi acid, 1-[id number] vitamin C, 13:02: 3D [...] jo-ann 39 l calcium 2021-0 Yes 667mg Q.[id number] Take 667 Methodi acetate 1-[id number] (PHOSLO) 13:02: 3D mouth [...] 39 nightly. l calcium 2021-0 Yes 1334mg Q.[id number] Take 1,334 Methodi acetate,domingo 1-18 [id number] mg by s t sphat bind, 13:02: 3D mouth 3 Hos whit (Phoslyra) 39 (three) l 667 mg (169 times a mg day. calcium)/5 mL solution cyproheptad 2021-0 Yes 4mg Q.[id number] Take 4 mg Methodi ine 1-18 [id number] by mouth [address] (PERIACTIN) 13:02: 3D (three) Hos whit 4 mg tablet 39 times a l day as needed for allergies. buPROPion 2021-0 Yes 300mg QD Take 300 Met hodi XL 1-[address] (WELLBUTRIN 13:02: mouth Hospi ta XL) 300 MG 39 daily. l 24 hr tablet ascorbic 2021-0 Yes 500mg Q.[id number] Take 500 Methodi acid, 1-[id number] vitamin C, 13:02: 3D [...] jo-ann 39 l calcium 2-0 Yes 667mg Q.[id number] Take 667 Methodi acetate 1-[id number] (PHOSLO) 13:02: 3D mouth [...] 39 nightly. l calcium 2021-0 Yes 1334mg Q.[id number] Take 1,334 Methodi acetate,domingo 1-18 [id number] mg by s t sphat bind, 13:02: 3D mouth 3 Hos whit (Phoslyra) 39 (three) l 667 mg (169 times a mg day. calcium)/5 mL solution cyproheptad 2021-0 Yes 4mg Q.[id number] Take 4 mg Methodi ine 1-18 [id number] by mouth [address] (PERIACTIN) 13:02: 3D (three) Hos whit 4 mg tablet 39 times a l day as needed for allergies. buPROPion 2021-0 Yes 300mg QD Take 300 Met hodi XL 1-[address] (WELLBUTRIN 13:02: mouth Hospi ta XL) 300 MG 39 daily. l 24 hr tablet ascorbic 2021-0 Yes 500mg Q.[id number] Take 500 Methodi acid, 1-[id number] vitamin C, 13:02: 3D [...] jo-ann 39 l calcium 2021-0 Yes 667mg Q.[id number] Take 667 Methodi acetate 1-[id number] (PHOSLO) 13:02: 3D mouth [...] 39 nightly. l calcium 2021-0 Yes 1334mg Q.[id number] Take 1,334 Methodi acetate,domingo 1-18 [id number] mg by s t sphat bind, 13:02: 3D mouth 3 Hos whit (Phoslyra) 39 (three) l 667 mg (169 times a mg day. calcium)/5 mL solution cyproheptad 2021-0 Yes 4mg Q.[id number] Take 4 mg Methodi ine 1-18 [id number] mouth [address] (PERIACTIN) 13:02: 3D (three) Hos whit 4 mg tablet 39 times a l day as needed for allergies. buPROPion 2021-0 Yes 300mg QD Take 300 Met hodi XL 1-[address] (WELLBUTRIN 13:02: mouth Hospi ta XL) 300 MG 39 daily. l 24 hr tablet ascorbic 2021-0 Yes 500mg Q.[id number] Take 500 Methodi acid, 1-[id number] vitamin C, 13:02: 3D [...] jo-ann 39 l calcium 2021-0 Yes 667mg Q.[id number] Take 667 Methodi acetate 1-[id number] (PHOSLO) 13:02: 3D mouth [...] 39 nightly. l calcium 2021-0 Yes 1334mg Q.[id number] Take 1,334 Methodi acetate,domingo 1-18 [id number] mg by s t sphat bind, 13:02: 3D mouth 3 Hos whit (Phoslyra) 39 (three) l 667 mg (169 times a mg day. calcium)/5 mL solution cyproheptad 2021-0 Yes 4mg Q.[id number] Take 4 mg Methodi ine 1-18 [id number] [address] mouth [address] (PERIACTIN) 13:02: 3D (three) Hos whit 4 mg tablet 39 times a l day as needed for allergies. buPROPion 2022-0 Yes 300mg QD Take 300 Met hodi XL 1-[address] ([facility] 13:02: mouth Hospi ta XL) 300 MG 39 daily. l 24 hr tablet ascorbic 2022-0 Yes 500mg Q.22537588 Take 500 [facility] acid, 1-[address] vitamin C, 13:02: 3D [...] jo-ann 39 l calcium 2021-0 Yes 667mg Q.56636526 Take 667 [facility] acetate 1-[address] (PHOSLO) 13:02: 3D mouth [...] 39 nightly. l calcium 2021-0 Yes 1334mg Q.93196308 Take 1,334 Methodi acetate,domingo 1-18 [id number] mg by s t sphat bind, 13:02: 3D mouth 3 Hos whit (Phoslyra) 39 (three) l 667 mg (169 times a mg day. calcium)/5 mL solution cyproheptad 2021-0 Yes 4mg Q.22732527 Take 4 mg [facility] ine 1-18 [id number] by mouth [address] ([facility]) 13:02: 3D (three) Hos whit 4 mg tablet 39 times a l day as needed for allergies. buPROPion 2021-0 Yes 300mg QD Take 300 Met hodi XL 1-[address] ([facility] 13:02: mouth Hospi ta XL) 300 MG 39 daily. l 24 hr tablet ascorbic 2021-0 Yes 500mg Q.36953934 Take 500 [facility] acid, 1-[id number] vitamin C, 13:02: 3D [...] jo-ann 39 l calcium 2021-0 Yes 667mg Q.86673637 Take 667 [facility] acetate 1-[id number] ([facility]OSLO) 13:02: 3D mouth [...] 39 nightly. l calcium 0 Yes 1334mg Q.15793534 Take 1,334 Methodi acetate,domingo 1-18 [id number] mg by s t sphat bind, 13:02: 3D mouth 3 Hos whit (Phoslyra) 39 (three) l 667 mg (169 times a mg day. calcium)/5 mL solution cyproheptad 0 Yes 4mg Q.67796435 Take 4 mg [facility] ine 1-18 [id number] by mouth [address] ([facility]IN) 13:02: 3D (three) Hos whit 4 mg tablet 39 times a l day as needed for allergies. buPROPion 0 Yes 300mg QD Take 300 Met hodi XL 1-[address] ([facility] 13:02: mouth Hospi ta XL) 300 MG 39 daily. l 24 hr tablet ascorbic 2021-0 Yes 500mg Q.68656025 Take 500 [facility] acid, 1-[address] vitamin C, 13:02: 3D [...] jo-ann 39 l calcium 2021-0 Yes 667mg Q.27533016 Take 667 [facility] acetate 1-[id number] ([facility]OSLO) 13:02: 3D mouth [...] 39 nightly. l calcium 2-0 Yes 1334mg Q.34347797 Take 1,334 Methodi acetate,domingo 1-18 [id number] mg by s t sphat bind, 13:02: 3D mouth 3 Hos whit (Phoslyra) 39 (three) l 667 mg (169 times a mg day. calcium)/5 mL solution cyproheptad 2021-0 Yes 4mg Q.[id number] Take 4 mg [facility] ine 1-18 [id number] [address] mouth [address] ([facility]) 13:02: 3D (three) Hos whit 4 mg tablet 39 times a l day as needed for allergies. buPROPion 2021-0 Yes 300mg QD Take 300 Met hodi XL 1-[address] ([facility] 13:02: mouth Hospi ta XL) 300 MG 39 daily. l 24 hr tablet ascorbic 2021-0 Yes 500mg Q.25846869 Take 500 [facility] acid, 1-[address] vitamin C, 13:02: 3D [...] jo-ann 39 l calcium 2022-0 Yes 667mg Q.04048223 Take 667 [facility] acetate 1-[id number] ([facility]OS[facility]) 13:02: 3D mouth [...] 39 nightly. l calcium 2021-0 Yes 1334mg Q.15307141 Take 1,334 Methodi acetate,domingo 1-18 [id number] mg by s t sphat bind, 13:02: 3D mouth 3 Hos whit (Phoslyra) 39 (three) l 667 mg (169 times a mg day. calcium)/5 mL solution cyproheptad 2021-0 Yes 4mg Q.00541706 Take 4 mg [facility] ine 1-18 [id number] [address] mouth [address] ([facility]) 13:02: 3D (three) Hos whit 4 mg tablet 39 times a l day as needed for allergies. buPROPion 2021-0 Yes 300mg QD Take 300 Met hodi XL 1-[address] ([facility] 13:02: mouth Hospi ta XL) 300 MG 39 daily. l 24 hr tablet ascorbic 2021-0 Yes 500mg Q.02915395 Take 500 [facility] acid, 1-[address] vitamin C, 13:02: 3D [...] jo-ann 39 l calcium 2021-0 Yes 667mg Q.79906968 Take 667 [facility] acetate 1-[id number] ([facility]OS[facility]) 13:02: 3D mouth [...] 39 nightly. l calcium 2021-0 Yes 1334mg Q.92280715 Take 1,334 Methodi acetate,domingo 1-18 [id number] mg by s t sphat bind, 13:02: 3D mouth 3 Hos whit (Phoslyra) 39 (three) l 667 mg (169 times a mg day. calcium)/5 mL solution cyproheptad 2021-0 Yes 4mg Q.95842333 Take 4 mg [facility] ine 1-18 [id number] [address] mouth [address] ([facility]) 13:02: 3D (three) Hos whit 4 mg tablet 39 times a l day as needed for allergies. buPROPion 2021-0 Yes 300mg QD Take 300 Met hodi XL 1-[address] ([facility] 13:02: mouth Hospi ta XL) 300 MG 39 daily. l 24 hr tablet ascorbic 2021-0 Yes 500mg Q.91879044 Take 500 [facility] acid, 1-[address] vitamin C, 13:02: 3D [...] jo-ann 39 l calcium 2021-0 Yes 667mg Q.61433804 Take 667 Method[facility] acetate 1-[id number] ([facility]OS[facility]) 13:02: 3D mouth [...] 39 nightly. l calcium 2022-0 Yes 1334mg Q.30778251 Take 1,334 Methodi acetate,domingo 1-18 [id number] mg by s t sphat bind, 13:02: 3D mouth 3 Hos whit (Phoslyra) 39 (three) l 667 mg (169 times a mg day. calcium)/5 mL solution cyproheptad 2021-0 Yes 4mg Q.74966344 Take 4 mg [facility] ine 1-18 [id number] [address] mouth [address] ([facility]) 13:02: 3D (three) Hos whit 4 mg tablet 39 times a l day as needed for allergies. buPROPion 2021-0 Yes 300mg QD Take 300 Met hodi XL 1-[address] ([facility] 13:02: mouth Hospi ta XL) 300 MG 39 daily. l 24 hr tablet ascorbic 2021-0 Yes 500mg Q.96875082 Take 500 [facility] acid, 1-[address] vitamin C, 13:02: 3D [...] jo-ann 39 l calcium 2021-0 Yes 667mg Q.68852694 Take 667 Method[facility] acetate 1-[id number] (PHOSLO) 13:02: 3D mouth [...] 39 nightly. l calcium 2021-0 Yes 1334mg Q.40831261 Take 1,334 Methodi acetate,domingo 1-18 [id number] mg by s t sphat bind, 13:02: 3D mouth 3 Hos whit (Phoslyra) 39 (three) l 667 mg (169 times a mg day. calcium)/5 mL solution cyproheptad 2021-0 Yes 4mg Q.36452990 Take 4 mg [facility] ine 1-18 [id number] by mouth [address] ([facility]) 13:02: 3D (three) Hos whit 4 mg tablet 39 times a l day as needed for allergies. buPROPion 2021-0 Yes 300mg QD Take 300 Met hodi XL 1-[address] ([facility] 13:02: mouth Hospi ta XL) 300 MG 39 daily. l 24 hr tablet ascorbic 2021-0 Yes 500mg Q.79673253 Take 500 [facility] acid, 1-[address] vitamin C, 13:02: 3D [...] jo-ann 39 l calcium 2021-0 Yes 667mg Q.[id number] Take 667 Method[facility] acetate 1-[id number] ([facility]OS[facility]) 13:02: 3D mouth [...] 39 nightly. l calcium 2021-0 Yes 1334mg Q.13086441 Take 1,334 Methodi acetate,domingo 1-18 [id number] mg by s t sphat bind, 13:02: 3D mouth 3 Hos whit (Phoslyra) 39 (three) l 667 mg (169 times a mg day. calcium)/5 mL solution cyproheptad 2021-0 Yes 4mg Q.66917630 Take 4 mg [facility] ine 1-18 [id number] [address] mouth [address] ([facility]) 13:02: 3D (three) Hos whit 4 mg tablet 39 times a l day as needed for allergies. buPROPion 2021-0 Yes 300mg QD Take 300 Met hodi XL 1-[address] ([facility] 13:02: mouth Hospi ta XL) 300 MG 39 daily. l 24 hr tablet ascorbic 2021-0 Yes 500mg Q.22626507 Take 500 [facility] acid, 1-[address] vitamin C, 13:02: 3D [...] jo-ann 39 l calcium 2021-0 Yes 667mg Q.87920492 Take 667 Method[facility] acetate 1-[id number] ([facility]OS[facility]) 13:02: 3D mouth [...] 39 nightly. l calcium 2021-0 Yes 1334mg Q.04016876 Take 1,334 Methodi acetate,domingo 1-18 [id number] mg by s t sphat bind, 13:02: 3D mouth 3 Hos whit (Phoslyra) 39 (three) l 667 mg (169 times a mg day. calcium)/5 mL solution cyproheptad 2021-0 Yes 4mg Q.47615380 Take 4 mg [facility] ine 1-18 [id number] [address] mouth [address] ([facility]) 13:02: 3D (three) Hos whit 4 mg tablet 39 times a l day as needed for allergies. buPROPion 2021-0 Yes 300mg QD Take 300 Met hodi XL 1-[address] ([facility] 13:02: mouth Hospi ta XL) 300 MG 39 daily. l 24 hr tablet ascorbic 2021-0 Yes 500mg Q.[id number] Take 500 [facility] acid, 1-[id number] vitamin C, 13:02: 3D [...] jo-ann 39 l calcium 2-0 Yes 667mg Q.18779887 Take 667 [facility] acetate 1-[id number] (PHOS[facility]) 13:02: 3D mouth [...] 39 nightly. l calcium 2021-0 Yes 1334mg Q.93196883 Take 1,334 Methodi acetate,domingo 1-18 [id number] mg by s t sphat bind, 13:02: 3D mouth 3 Hos whit (Phoslyra) 39 (three) l 667 mg (169 times a mg day. calcium)/5 mL solution cyproheptad 2021-0 Yes 4mg Q.53754699 Take 4 mg [facility] ine 1-18 [id number] [address] mouth [address] ([facility]) 13:02: 3D (three) Hos whit 4 mg tablet 39 times a l day as needed for allergies. buPROPion 2021-0 Yes 300mg QD Take 300 Met hodi XL 1-[address] ([facility] 13:02: mouth Hospi ta XL) 300 MG 39 daily. l 24 hr tablet ascorbic 2021-0 Yes 500mg Q.12555466 Take 500 Method[facility] acid, 1-[id number] vitamin C, 13:02: 3D [...] jo-ann 39 l calcium 2-0 Yes 667mg Q.86707815 Take 667 [facility] acetate 1-[id number] (PHOSLO) 13:02: 3D mouth [...] 39 nightly. l calcium 2021-0 Yes 1334mg Q.03309165 Take 1,334 Methodi acetate,domingo 1-18 [id number] mg by s t sphat bind, 13:02: 3D mouth 3 Hos whit (Phoslyra) 39 (three) l 667 mg (169 times a mg day. calcium)/5 mL solution cyproheptad 2021-0 Yes 4mg Q.91488885 Take 4 mg [facility] ine 1-18 [id number] [address] mouth [address] ([facility]) 13:02: 3D (three) Hos whit 4 mg tablet 39 times a l day as needed for allergies. buPROPion 2021-0 Yes 300mg QD Take 300 Met hodi XL 1-[address] ([facility] 13:02: mouth Hospi ta XL) 300 MG 39 daily. l 24 hr tablet ascorbic 2021-0 Yes 500mg Q.30535942 Take 500 Method[facility] acid, 1-[id number] vitamin C, 13:02: 3D [...] jo-ann 39 l calcium 2021-0 Yes 667mg Q.10086028 Take 667 Method[facility] acetate 1-[id number] (PHOSLO) 13:02: 3D mouth [...] 39 nightly. l calcium 2022-0 Yes 1334mg Q.92444586 Take 1,334 Methodi acetate,domingo 1-18 [id number] mg by s t sphat bind, 13:02: 3D mouth 3 Hos whit (Phoslyra) 39 (three) l 667 mg (169 times a mg day. calcium)/5 mL solution cyproheptad 2021-0 Yes 4mg Q.55558121 Take 4 mg [facility] ine 1-18 [id number] [address] mouth [address] ([facility]) 13:02: 3D (three) Hos whit 4 mg tablet 39 times a l day as needed for allergies. buPROPion 2021-0 Yes 300mg QD Take 300 Met hodi XL 1-[address] ([facility] 13:02: mouth Hospi ta XL) 300 MG 39 daily. l 24 hr tablet ascorbic 2021-0 Yes 500mg Q.38902254 Take 500 Method[facility] acid, 1-[id number] vitamin C, 13:02: 3D [...] jo-ann 39 l calcium 2021-0 Yes 667mg Q.34616001 Take 667 [facility] acetate 1-[id number] (PHOSLO) 13:02: 3D mouth [...] 39 nightly. l calcium 2021-0 Yes 1334mg Q.75045113 Take 1,334 Methodi acetate,domingo 1-18 [id number] mg by s t sphat bind, 13:02: 3D mouth 3 Hos whit (Phoslyra) 39 (three) l 667 mg (169 times a mg day. calcium)/5 mL solution cyproheptad 2021-0 Yes 4mg Q.[id number] Take 4 mg [facility] ine 1-18 [id number] [address] mouth [address] ([facility]) 13:02: 3D (three) Hos whit 4 mg tablet 39 times a l day as needed for allergies. buPROPion 2021-0 Yes 300mg QD Take 300 Met hodi XL 1-[address] ([facility] 13:02: mouth Hospi ta XL) 300 MG 39 daily. l 24 hr tablet ascorbic 2021-0 Yes 500mg Q.03814788 Take 500 Method[facility] acid, 1-[id number] vitamin C, 13:02: 3D [...] jo-ann 39 l calcium 2021-0 Yes 667mg Q.75273763 Take 667 [facility] acetate 1-[id number] ([facility]OS[facility]) 13:02: 3D mouth [...] 39 nightly. l calcium 2021-0 Yes 1334mg Q.83700633 Take 1,334 Methodi acetate,domingo 1-18 [id number] mg by s t sphat bind, 13:02: 3D mouth 3 Hos whit (Phoslyra) 39 (three) l 667 mg (169 times a mg day. calcium)/5 mL solution cyproheptad 2021-0 Yes 4mg Q.28190065 Take 4 mg [facility] ine 1-18 [id number] [address] mouth [address] ([facility]) 13:02: 3D (three) Hos whit 4 mg tablet 39 times a l day as needed for allergies. buPROPion 2021-0 Yes 300mg QD Take 300 Met hodi XL 1-[address] ([facility] 13:02: mouth Hospi ta XL) 300 MG 39 daily. l 24 hr tablet ascorbic 2021-0 Yes 500mg Q.32737356 Take 500 [facility] acid, 1-[id number] vitamin C, 13:02: 3D [...] jo-ann 39 l calcium 2021-0 Yes 667mg Q.72077727 Take 667 Method[facility] acetate 1-[id number] (PHOS[facility]) 13:02: 3D mouth [...] 39 nightly. l calcium 2021-0 Yes 1334mg Q.38227718 Take 1,334 Methodi acetate,domingo 1-18 [id number] mg by s t sphat bind, 13:02: 3D mouth 3 Hos whit (Phoslyra) 39 (three) l 667 mg (169 times a mg day. calcium)/5 mL solution cyproheptad 2021-0 Yes 4mg Q.49828370 Take 4 mg [facility] ine 1-18 [id number] [address] mouth [address] ([facility]) 13:02: 3D (three) Hos whit 4 mg tablet 39 times a l day as needed for allergies. buPROPion 2021-0 Yes 300mg QD Take 300 Met hodi XL 1-[address] ([facility] 13:02: mouth Hospi ta XL) 300 MG 39 daily. l 24 hr tablet ascorbic 2021-0 Yes 500mg Q.58726872 Take 500 [facility] acid, 1-[id number] vitamin C, 13:02: 3D [...] jo-ann 39 l calcium 202-0 Yes 667mg Q.73968205 Take 667 Method[facility] acetate 1-[id number] (PHOSLO) 13:02: 3D mouth [...] 39 nightly. l calcium 2021-0 Yes 1334mg Q.22528582 Take 1,334 Methodi acetate,domingo 1-18 [id number] mg by s t sphat bind, 13:02: 3D mouth 3 Hos whit (Phoslyra) 39 (three) l 667 mg (169 times a mg day. calcium)/5 mL solution cyproheptad 2021-0 Yes 4mg Q.02834313 Take 4 mg [facility] ine 1-18 [id number] [address] mouth [address] ([facility]) 13:02: 3D (three) Hos whit 4 mg tablet 39 times a l day as needed for allergies. buPROPion 2021-0 Yes 300mg QD Take 300 Met hodi XL 1-[address] ([facility] 13:02: mouth Hospi ta XL) 300 MG 39 daily. l 24 hr tablet ascorbic 2021-0 Yes 500mg Q.49515977 Take 500 Methodi acid, 1-[id number] vitamin C, 13:02: 3D [...] jo-ann 39 l calcium 2021-0 Yes 667mg Q.04267622 Take 667 Methodi acetate 1-[id number] (PHOSLO) 13:02: 3D mouth [...] 39 nightly. l calcium 2021-0 Yes 1334mg Q.84741367 Take 1,334 Methodi acetate,domingo 1-18 [id number] mg by s t sphat bind, 13:02: 3D mouth 3 Hos whit (Phoslyra) 39 (three) l 667 mg (169 times a mg day. calcium)/5 mL solution cyproheptad 2021-0 Yes 4mg Q.82060095 Take 4 mg Methodi ine 1-18 [id number] [address] mouth [address] ([facility]) 13:02: 3D (three) Hos whit 4 mg tablet 39 times a l day as needed for allergies. buPROPion 2021-0 Yes 300mg QD Take 300 Met hodi XL 1-[address] ([facility] 13:02: mouth Hospi ta XL) 300 MG 39 daily. l 24 hr tablet ascorbic 2021-0 Yes 500mg Q.03147352 Take 500 Methodi acid, 1-[id number] vitamin C, 13:02: 3D [...] jo-ann 39 l calcium 2021-0 Yes 667mg Q.23224870 Take 667 Methodi acetate 1-[id number] (PHOSLO) 13:02: 3D mouth [...] 39 nightly. l calcium 2021-0 Yes 1334mg Q.71177758 Take 1,334 Methodi acetate,domingo 1-18 [id number] mg by s t sphat bind, 13:02: 3D mouth 3 Hos whit (Phoslyra) 39 (three) l 667 mg (169 times a mg day. calcium)/5 mL solution cyproheptad 2021-0 Yes 4mg Q.06343473 Take 4 mg [facility]i ine 1-18 [id number] [address] mouth [address] ([facility]) 13:02: 3D (three) Hos whit 4 mg tablet 39 times a l day as needed for allergies. buPROPion 2021-0 Yes 300mg QD Take 300 Met hodi XL 1-[address] ([facility] 13:02: mouth Hospi ta XL) 300 MG 39 daily. l 24 hr tablet ascorbic 2021-0 Yes 500mg Q.92262852 Take 500 Methodi acid, 1-[id number] vitamin C, 13:02: 3D [...] jo-ann 39 l calcium 2021-0 Yes 667mg Q.73667707 Take 667 Methodi acetate 1-[id number] (PHOSLO) 13:02: 3D mouth [...] 39 nightly. l calcium 2022-0 Yes 1334mg Q.18138133 Take 1,334 Methodi acetate,domingo 1-18 [id number] mg by s t sphat bind, 13:02: 3D mouth 3 Hos whit (Phoslyra) 39 (three) l 667 mg (169 times a mg day. calcium)/5 mL solution cyproheptad 2021-0 Yes 4mg Q.[id number] Take 4 mg Methodi ine 1-18 [id number] [address] mouth [address] ([facility]) 13:02: 3D (three) Hos whit 4 mg tablet 39 times a l day as needed for allergies. buPROPion 2021-0 Yes 300mg QD Take 300 Met hodi XL 1-[address] ([facility] 13:02: mouth Hospi ta XL) 300 MG 39 daily. l 24 hr tablet ascorbic 2021-0 Yes 500mg Q.04173337 Take 500 Methodi acid, 1-[id number] vitamin C, 13:02: 3D [...] jo-ann 39 l calcium 2021-0 Yes 667mg Q.42839814 Take 667 Methodi acetate 1-[id number] (PHOSLO) 13:02: 3D mouth [...] 39 nightly. l calcium 2021-0 Yes 1334mg Q.31643552 Take 1,334 Methodi acetate,domingo 1-18 [id number] mg by s t sphat bind, 13:02: 3D mouth 3 Hos whit (Phoslyra) 39 (three) l 667 mg (169 times a mg day. calcium)/5 mL solution cyproheptad 2021-0 Yes 4mg Q.12067498 Take 4 mg Methodi ine 1-18 [id number] [address] mouth [address] ([facility]) 13:02: 3D (three) Hos whit 4 mg tablet 39 times a l day as needed for allergies. buPROPion 2021-0 Yes 300mg QD Take 300 Met hodi XL 1-[address] ([facility] 13:02: mouth Hospi ta XL) 300 MG 39 daily. l 24 hr tablet ascorbic 2021-0 Yes 500mg Q.33597395 Take 500 Methodi acid, 1-[id number] vitamin C, 13:02: 3D [...] jo-ann 39 l calcium 2021-0 Yes 667mg Q.32737957 Take 667 Methodi acetate 1-[id number] (PHOSLO) 13:02: 3D mouth [...] 39 nightly. l calcium 2021-0 Yes 1334mg Q.27318105 Take 1,334 Methodi acetate,domingo 1-18 [id number] mg by s t sphat bind, 13:02: 3D mouth 3 Hos whit (Phoslyra) 39 (three) l 667 mg (169 times a mg day. calcium)/5 mL solution cyproheptad 2021-0 Yes 4mg Q.84073433 Take 4 mg Methodi ine 1-18 [id number] [address] [facility] [address] ([facility]) 13:02: 3D (three) Hos whit 4 mg tablet 39 times a l day as needed for allergies. buPROPion 2021-0 Yes 300mg QD Take 300 Met hodi XL 1-[address] ([facility] 13:02: mouth Hospi ta XL) 300 MG 39 daily. l 24 hr tablet ascorbic 2022-0 Yes 500mg Q.43849745 Take 500 Methodi acid, 1-[id number] vitamin C, 13:02: 3D [...] jo-ann 39 l calcium 2022-0 Yes 667mg Q.[id number] Take 667 Methodi acetate 1-[id number] (PHOSLO) 13:02: 3D mouth [...] 39 nightly. l calcium 2021-0 Yes 1334mg Q.[id number] Take 1,334 Methodi acetate,domingo 1-18 [id number] mg by s t sphat bind, 13:02: 3D mouth 3 Hos whit (Phoslyra) 39 (three) l 667 mg (169 times a mg day. calcium)/5 mL solution cyproheptad 2021-0 Yes 4mg Q.[id number] Take 4 mg Methodi ine 1-18 [id number] [address] mouth [address] ([facility]) 13:02: 3D (three) Hos whit 4 mg tablet 39 times a l day as needed for allergies. buPROPion 2021-0 Yes 300mg QD Take 300 Met hodi XL 1-[address] ([facility] 13:02: mouth Hospi ta XL) 300 MG 39 daily. l 24 hr tablet ascorbic 2021-0 Yes 500mg Q.[id number] Take 500 Methodi acid, 1-[id number] vitamin C, 13:02: 3D [...] jo-ann 39 l calcium 2021-0 Yes 667mg Q.43304755 Take 667 Methodi acetate 1-[id number] (PHOSLO) 13:02: 3D mouth [...] 39 nightly. l calcium 2021-0 Yes 1334mg Q.23391809 Take 1,334 Methodi acetate,domingo 1-18 [id number] mg by s t sphat bind, 13:02: 3D mouth 3 Hos whit (Phoslyra) 39 (three) l 667 mg (169 times a mg day. calcium)/5 mL solution cyproheptad 0 Yes 4mg Q.[id number] Take 4 mg Methodi ine 1-18 [id number] [address] mouth [address] ([facility]) 13:02: 3D (three) Hos whit 4 mg tablet 39 times a l day as needed for allergies. buPROPion 2021-0 Yes 300mg QD Take 300 Met hodi XL 1-[address] ([facility] 13:02: mouth Hospi ta XL) 300 MG 39 daily. l 24 hr tablet ascorbic 2021-0 Yes 500mg Q.35736486 Take 500 Methodi acid, 1-[id number] vitamin C, 13:02: 3D [...] jo-ann 39 l calcium 2021-0 Yes 667mg Q.35143987 Take 667 Methodi acetate 1-[id number] (PHOSLO) 13:02: 3D mouth [...] 39 nightly. l calcium 2022-0 Yes 1334mg Q.84032103 Take 1,334 Methodi acetate,domingo 1-18 [id number] mg by s t sphat bind, 13:02: 3D mouth 3 Hos whit (Phoslyra) 39 (three) l 667 mg (169 times a mg day. calcium)/5 mL solution cyproheptad 2021-0 Yes 4mg Q.52202530 Take 4 mg Methodi ine 1-18 [id number] [address] mouth [address] ([facility]) 13:02: 3D (three) Hos whit 4 mg tablet 39 times a l day as needed for allergies. buPROPion 2021-0 Yes 300mg QD Take 300 Met hodi XL 1-[address] ([facility] 13:02: mouth Hospi ta XL) 300 MG 39 daily. l 24 hr tablet ascorbic 2021-0 Yes 500mg Q.71528478 Take 500 Methodi acid, 1-[id number] vitamin C, 13:02: 3D [...] jo-ann 39 l calcium 2022-0 Yes 667mg Q.[id number] Take 667 Methodi acetate 1-[id number] (PHOSLO) 13:02: 3D mouth [...] 39 nightly. l calcium 2021-0 Yes 1334mg Q.[id number] Take 1,334 Methodi acetate,domingo 1-18 [id number] mg by s t sphat bind, 13:02: 3D mouth 3 Hos whit (Phoslyra) 39 (three) l 667 mg (169 times a mg day. calcium)/5 mL solution cyproheptad 2021-0 Yes 4mg Q.05298423 Take 4 mg Methodi ine 1-18 [id number] [address] mouth [address] ([facility]) 13:02: 3D (three) Hos whit 4 mg tablet 39 times a l day as needed for allergies. buPROPion 2021-0 Yes 300mg QD Take 300 Met hodi XL 1-[address] ([facility] 13:02: mouth Hospi ta XL) 300 MG 39 daily. l 24 hr tablet ascorbic 2021-0 Yes 500mg Q.58870549 Take 500 Methodi acid, 1-[id number] vitamin C, 13:02: 3D [...] jo-ann 39 l calcium 2021-0 Yes 667mg Q.79779381 Take 667 Methodi acetate 1-[id number] (PHOSLO) 13:02: 3D mouth [...] 39 nightly. l calcium 2-0 Yes 1334mg Q.69950685 Take 1,334 Methodi acetate,domingo 1-18 [id number] mg by s t sphat bind, 13:02: 3D mouth 3 Hos whit (Phoslyra) 39 (three) l 667 mg (169 times a mg day. calcium)/5 mL solution cyproheptad 2022-0 Yes 4mg Q.90199657 Take 4 mg Methodi ine 1-18 [id number] [address] mouth [address] ([facility]) 13:02: 3D (three) Hos whit 4 mg tablet 39 times a l day as needed for allergies. buPROPion 2022-0 Yes 300mg QD Take 300 Met hodi XL 1-[address] ([facility] 13:02: mouth Hospi ta XL) 300 MG 39 daily. l 24 hr tablet ascorbic 2021-0 Yes 500mg Q.06170064 Take 500 Methodi acid, 1-[id number] vitamin C, 13:02: 3D [...] jo-ann 39 l calcium 2-0 Yes 667mg Q.10882471 Take 667 Methodi acetate 1-[id number] (PHOSLO) 13:02: 3D mouth [...] 39 nightly. l calcium 2021-0 Yes 1334mg Q.07027804 Take 1,334 Methodi acetate,domingo 1-18 [id number] mg by s t sphat bind, 13:02: 3D mouth 3 Hos whit (Phoslyra) 39 (three) l 667 mg (169 times a mg day. calcium)/5 mL solution cyproheptad 2021-0 Yes 4mg Q.93459084 Take 4 mg Methodi ine 1-18 [id number] [address] mouth [address] ([facility]) 13:02: 3D (three) Hos whit 4 mg tablet 39 times a l day as needed for allergies. buPROPion 2021-0 Yes 300mg QD Take 300 Met hodi XL 1-[address] ([facility] 13:02: mouth Hospi ta XL) 300 MG 39 daily. l 24 hr tablet ascorbic 2021-0 Yes 500mg Q.50653150 Take 500 Methodi acid, 1-[id number] vitamin C, 13:02: 3D [...] jo-ann 39 l calcium 2021-0 Yes 667mg Q.97013748 Take 667 Methodi acetate 1-[id number] (PHOSLO) 13:02: 3D mouth [...] 39 nightly. l calcium 2021-0 Yes 1334mg Q.74663785 Take 1,334 Methodi acetate,domingo 1-18 [id number] mg by s t sphat bind, 13:02: 3D mouth 3 Hos whit (Phoslyra) 39 (three) l 667 mg (169 times a mg day. calcium)/5 mL solution cyproheptad 2021-0 Yes 4mg Q.99153969 Take 4 mg Methodi ine 1-18 [id number] [address] mouth [address] ([facility]) 13:02: 3D (three) Hos whit 4 mg tablet 39 times a l day as needed for allergies. buPROPion 2021-0 Yes 300mg QD Take 300 Met hodi XL 1-[address] ([facility] 13:02: mouth Hospi ta XL) 300 MG 39 daily. l 24 hr tablet ascorbic 2022-0 Yes 500mg Q.21440362 Take 500 Methodi acid, 1-[id number] vitamin C, 13:02: 3D [...] jo-ann 39 l calcium 2-0 Yes 667mg Q.15256606 Take 667 Methodi acetate 1-[id number] (PHOSLO) 13:02: 3D mouth [...] 39 nightly. l calcium 2021-0 Yes 1334mg Q.81559553 Take 1,334 Methodi acetate,domingo 1-18 [id number] mg by s t sphat bind, 13:02: 3D mouth 3 Hos whit (Phoslyra) 39 (three) l 667 mg (169 times a mg day. calcium)/5 mL solution cyproheptad 0 Yes 4mg Q.47537727 Take 4 mg Methodi ine 1-18 [id number] [address] mouth [address] (PERIACTIN) 13:02: 3D (three) Hos whit 4 mg tablet 39 times a l day as needed for allergies. buPROPion 2021-0 Yes 300mg QD Take 300 Met hodi XL 1-[address] (WELLBUTRIN 13:02: mouth Hospi ta XL) 300 MG 39 daily. l 24 hr tablet ascorbic 2021-0 Yes 500mg Q.[id number] Take 500 Methodi acid, 1-[id number] vitamin C, 13:02: 3D [...] jo-ann 39 l calcium 2021-0 Yes 667mg Q.56532782 Take 667 Methodi acetate 1-[address] (PHOSLO) 13:02: 3D mouth [...] 39 nightly. l calcium 2021-0 Yes 1334mg Q.[id number] Take 1,334 Methodi acetate,domingo 1-18 0258381629 mg by s t sphat bind, 13:02: 3D mouth 3 Hos whit (Phoslyra) 39 (three) l 667 mg (169 times a mg day. calcium)/5 mL solution cyproheptad 0 Yes 4mg Q.59961376 Take 4 mg Methodi ine 1-18 [id number] [address] mouth [address] (PERIACTIN) 13:02: 3D (three) Hos whit 4 mg tablet 39 times a l day as needed for allergies. buPROPion 0 Yes 300mg QD Take 300 Met hodi XL 1-[address] (WELLBUTRIN 13:02: mouth Hospi ta XL) 300 MG 39 daily. l 24 hr tablet ascorbic 2021-0 Yes 500mg Q.[id number] Take 500 Methodi acid, 1-[address] vitamin C, 13:02: 3D [...] jo-ann 39 l calcium 2-0 Yes 667mg Q.95629008 Take 667 Methodi acetate 1-[id number] (PHOSLO) 13:02: 3D mouth [...] 39 nightly. l calcium 2021-0 Yes 1334mg Q.17602634 Take 1,334 Methodi acetate,domingo 1-18 [id number] mg by s t sphat bind, 13:02: 3D mouth 3 Hos whit (Phoslyra) 39 (three) l 667 mg (169 times a mg day. calcium)/5 mL solution cyproheptad 2021-0 Yes 4mg Q.[id number] Take 4 mg [facility]i ine 1-18 [id number] mouth [address] (PERIACTIN) 13:02: 3D (three) Hos whit 4 mg tablet 39 times a l day as needed for allergies. buPROPion 2021-0 Yes 300mg QD Take 300 Met hodi XL 1-[address] (WELLBUTRIN 13:02: mouth Hospi ta XL) 300 MG 39 daily. l 24 hr tablet ascorbic 2021-0 Yes 500mg Q.[id number] Take 500 [facility]i acid, 1-[id number] vitamin C, 13:02: 3D [...] jo-ann 39 l calcium 2021-0 Yes 667mg Q.[id number] Take 667 [facility] acetate 1-[id number] (PHOSLO) 13:02: 3D mouth [...] jo-ann 39 l calcium 2022-0 Yes 667mg Q.72962076 Take 667 [facility] acetate 1-[id number] (PHOSLO) 13:02: 3D mouth [...] 39 nightly. l calcium 0 Yes 1334mg Q.[id number] Take 1,334 Methodi acetate,domingo 1-18 [id number] mg by s t sphat bind, 13:02: 3D mouth 3 Hos whit (Phoslyra) 39 (three) l 667 mg (169 times a mg day. calcium)/5 mL solution cyproheptad Yes 4mg Q.[id number] Take 4 mg [facility] ine 1-18 [id number] by mouth [address] (PERIACTIN) 13:02: 3D (three) Hos whit 4 mg tablet 39 times a l day as needed for allergies. buPROPion 0 Yes 300mg QD Take 300 Met hodi XL 1-[address] (WELLBUTRIN 13:02: mouth Hospi ta XL) 300 MG 39 daily. l 24 hr tablet ascorbic 0 Yes 500mg Q.[id number] Take 500 [facility] acid, 1-[id number] vitamin C, 13:02: 3D [...] mg at night vancomycin 2020-06- No 750mg Q.[id number] Infuse 750 [facility] 750 mg in 07-08 [id number] mg into a [address] sodium 00:00: 05:59 3W venous Hospita chloride 00 :00 catheter 3 l 0.9% 250 mL (three) IVPB times a week for 19 days. Administer 3 times weekly in dialysis vancomycin 2020-06- No 750mg Q.07666728 Infuse 750 [facility] 750 mg in 07-08 [id number] mg into a [address] sodium 00:00: 05:59 3W venous [facility] chloride 00 :00 catheter 3 l 0.9% 250 mL (three) IVPB times a week for 19 days. Administer 3 times weekly in dialysis vancomycin 2020-06- No 750mg Q.84538486 Infuse 750 [facility] 750 mg in 07-08 [id number] mg into a [address] sodium 00:00: 05:59 3W venous [facility] chloride 00 :00 catheter 3 l 0.9% 250 mL (three) IVPB times a week for 19 days. Administer 3 times weekly in dialysis vancomycin 2020-06- No 750mg Q.88920110 Infuse 750 [facility] 750 mg in 07-08 [id number] mg into a [address] sodium 00:00: 05:59 3W venous [facility] chloride 00 :00 catheter 3 l 0.9% 250 mL (three) IVPB times a week for 19 days. Administer 3 times weekly in dialysis vancomycin 2020-06- No 750mg Q.69678521 Infuse 750 [facility] 750 mg in 07-08 [id number] mg into a [address] sodium 00:00: 05:59 3W venous [facility] chloride 00 :00 catheter 3 l 0.9% 250 mL (three) IVPB times a week for 19 days. Administer 3 times weekly in dialysis vancomycin 2020-06- No 750mg Q.33130645 Infuse 750 [facility] 750 mg in 07-08 [id number] mg into a [address] sodium 00:00: 05:59 3W venous [facility]osp[facility] chloride 00 :00 catheter 3 l 0.9% 250 mL (three) IVPB times a week for 19 days. Administer 3 times weekly in dialysis vancomycin 2020-06- No 750mg Q.72116709 Infuse 750 [facility] 750 mg in 07-08 [id number] mg into a [address] sodium 00:00: 05:59 3W venous [facility] chloride 00 :00 catheter 3 l 0.9% 250 mL (three) IVPB times a week for 19 days. Administer 3 times weekly in dialysis vancomycin 2020-06- No 750mg Q.65243536 Infuse 750 [facility] 750 mg in 07-08 [id number] mg into a [address] sodium 00:00: 05:59 3W venous [facility]ospita chloride 00 :00 catheter 3 l 0.9% 250 mL (three) IVPB times a week for 19 days. Administer 3 times weekly in dialysis vancomycin 2020-06- No 750mg Q.81649560 Infuse 750 [facility] 750 mg in 07-08 [id number] mg into a [address] sodium 00:00: 05:59 3W venous [facility]osp[facility] chloride 00 :00 catheter 3 l 0.9% 250 mL (three) IVPB times a week for 19 days. Administer 3 times weekly in dialysis vancomycin 2020-06- No 750mg Q.60037502 Infuse 750 [facility] 750 mg in 07-08 [id number] mg into a [address] sodium 00:00: 05:59 3W venous [facility] chloride 00 :00 catheter 3 l 0.9% 250 mL (three) IVPB times a week for 19 days. Administer 3 times weekly in dialysis vancomycin 2020-06- No 750mg Q.08517854 Infuse 750 [facility] 750 mg in 07-08 [id number] mg into a [address] sodium 00:00: 05:59 3W venous [facility]ospita chloride 00 :00 catheter 3 l 0.9% 250 mL (three) IVPB times a week for 19 days. Administer 3 times weekly in dialysis vancomycin 2020-06- No 750mg Q.58806935 Infuse 750 [facility] 750 mg in 07-08 [id number] mg into a [address] sodium 00:00: 05:59 3W venous [facility]ospita chloride 00 :00 catheter 3 l 0.9% 250 mL (three) IVPB times a week for 19 days. Administer 3 times weekly in dialysis vancomycin 2020-06- No 750mg Q.91366440 Infuse 750 [facility] 750 mg in 07-08 [id number] mg into a [address] sodium 00:00: 05:59 3W venous [facility]ospita chloride 00 :00 catheter 3 l 0.9% 250 mL (three) IVPB times a week for 19 days. Administer 3 times weekly in dialysis HYDROcodone 2020-06 1{tbl} Q6H Take 1 Methodi -acetaminop 2-29 -[address] hen (CADFORCE) 00:00: 05:59 mouth Hosp jo-ann 5-325 mg 00 :00 every 6 l per tablet (six) hours as needed for severe pain for up to 5 days .acute pain. Max Daily Amount: 4 tablets HYDROcodone 2020-06 1{tbl} Q6H Take 1 [facility]i -acetaminop 2-29 -[address] hen (CADFORCE) 00:00: 05:59 mouth Hosp jo-ann 5-325 mg 00 :00 every 6 l per tablet (six) hours as needed for severe pain for up to 5 days .acute pain. Max Daily Amount: 4 tablets HYDROcodone 2020-06 1{tbl} Q6H Take 1 Methodi -acetaminop 2-29 -[address] hen (CADFORCE) 00:00: 05:59 mouth Hosp jo-ann 5-325 mg 00 :00 every 6 l per tablet (six) hours as needed for severe pain for up to 5 days .acute pain. Max Daily Amount: 4 tablets HYDROcodone 2020-06 1{tbl} Q6H Take 1 [facility]i -acetaminop 2-29 -[address] hen (CADFORCE) 00:00: 05:59 mouth Hosp jo-ann 5-325 mg 00 :00 every 6 l per tablet (six) hours as needed for severe pain for up to 5 days .acute pain. Max Daily Amount: 4 tablets HYDROcodone 2020-06 1{tbl} Q6H Take 1 Methodi -acetaminop 2-29 -[address] hen (CADFORCE) 00:00: 05:59 mouth Hosp jo-ann 5-325 mg 00 :00 every 6 l per tablet (six) hours as needed for severe pain for up to 5 days .acute pain. Max Daily Amount: 4 tablets HYDROcodone 2020-06 1{tbl} Q6H Take 1 Methodi -acetaminop 2-29 -[address] hen (CADFORCE) 00:00: 05:59 mouth Hosp jo-ann 5-325 mg 00 :00 every 6 l per tablet (six) hours as needed for severe pain for up to 5 days .acute pain. Max Daily Amount: 4 tablets HYDROcodone 2020-06 1{tbl} Q6H Take 1 Methodi -acetaminop 2-29 -[address] hen (CADFORCE) 00:00: 05:59 mouth Hosp jo-ann 5-325 mg 00 :00 every 6 l per tablet (six) hours as needed for severe pain for up to 5 days .acute pain. Max Daily Amount: 4 tablets HYDROcodone 2020-06 1{tbl} Q6H Take 1 Methodi -acetaminop 2-29 -[address] hen (CADFORCE) 00:00: 05:59 mouth Hosp jo-ann 5-325 mg 00 :00 every 6 l per tablet (six) hours as needed for severe pain for up to 5 days .acute pain. Max Daily Amount: 4 tablets HYDROcodone 2020-06 1{tbl} Q6H Take 1 Methodi -acetaminop 2-29 -[address] hen (CADFORCE) 00:00: 05:59 mouth Hosp jo-ann 5-325 mg 00 :00 every 6 l per tablet (six) hours as needed for severe pain for up to 5 days .acute pain. Max Daily Amount: 4 tablets HYDROcodone 2020-06 1{tbl} Q6H Take 1 Methodi -acetaminop 2-29 -[address] [facility] (CADFORCE) 00:00: 05:59 mouth Hosp jo-ann 5-325 mg 00 :00 every 6 l per tablet (six) hours as needed for severe pain for up to 5 days .acute pain. Max Daily Amount: 4 tablets HYDROcodone 2020-0628 1{tbl} Q6H Take 1 Methodi -acetaminop 2-29 -[address] hen (CADFORCE) 00:00: 05:59 mouth Hosp jo-ann 5-325 mg 00 :00 every 6 l per tablet (six) hours as needed for severe pain for up to 5 days .acute pain. Max Daily Amount: 4 tablets HYDROcodone 2020-0628 1{tbl} Q6H Take 1 Methodi -acetaminop 2-29 01- tablet by [facility] hen (CADFORCE) 00:00: 05:59 mouth Hosp jo-ann 5-325 mg 00 :00 every 6 l per tablet (six) hours as needed for severe pain for up to 5 days .acute pain. Max Daily Amount: 4 tablets HYDROcodone 2020-06 No [id number] 1{tbl} Q6H Take 1 Methodi -acetaminop -06-[address] hen (CADFORCE) 00:00: 05:59 mouth Hosp jo-ann 5-325 mg [...] for 30 per tablet days. gabapentin 2020-06- 300mg QD Take 1 Met hodi (NEURONTIN) [...] mg for 30 per tablet days. HYDROcodone 2020-0628 2{tbl} Q8H Take 2 Methodi -acetaminop 2-05 12-13 tablets by s t hen (CADFORCE) 00:00: 05:59 mouth Hosp jo-ann 5-325 mg 00 :00 every 8 l per tablet (eight) hours as needed for severe pain for up to 7 days .acute pain. Max Daily Amount: 6 tablets HYDROcodone 2020-0628 2{tbl} Q8H Take 2 Methodi -acetaminop 2-05 12-13 tablets by s t hen (CADFORCE) 00:00: 05:59 mouth Hosp jo-ann 5-325 mg 00 :00 every 8 l per tablet (eight) hours as needed for severe pain for up to 7 days .acute pain. Max Daily Amount: 6 tablets HYDROcodone 2020-0628 2{tbl} Q8H Take 2 Methodi -acetaminop 2-05 12-13 tablets by s t hen (CADFORCE) 00:00: 05:59 mouth Hosp jo-ann 5-325 mg 00 :00 every 8 l per tablet (eight) hours as needed for severe pain for up to 7 days .acute pain. Max Daily Amount: 6 tablets HYDROcodone 2020-06 2{tbl} Q8H Take 2 Methodi -acetaminop 2-05 12-13 tablets by s t hen (CADFORCE) 00:00: 05:59 mouth Hosp jo-ann 5-325 mg 00 :00 every 8 l per tablet (eight) hours as needed for severe pain for up to 7 days .acute pain. Max Daily Amount: 6 tablets HYDROcodone 2020-06 2{tbl} Q8H Take 2 Methodi -acetaminop 2-05 12-13 tablets by s t hen (CADFORCE) 00:00: 05:59 mouth Hosp jo-ann 5-325 mg 00 :00 every 8 l per tablet (eight) hours as needed for severe pain for up to 7 days .acute pain. Max Daily Amount: 6 tablets HYDROcodone 2020-0628 2{tbl} Q8H Take 2 Methodi -acetaminop 2-05 12-13 tablets by s t hen (CADFORCE) 00:00: 05:59 mouth Hosp jo-ann 5-325 mg 00 :00 every 8 l per tablet (eight) hours as needed for severe pain for up to 7 days .acute pain. Max Daily Amount: 6 tablets HYDROcodone 2020-0628 2{tbl} Q8H Take 2 Methodi -acetaminop 2-05 12-13 tablets by s t hen (CADFORCE) 00:00: 05:59 mouth Hosp jo-ann 5-325 mg 00 :00 every 8 l per tablet (eight) hours as needed for severe pain for up to 7 days .acute pain. Max Daily Amount: 6 tablets HYDROcodone 2020-06 2{tbl} Q8H Take 2 Methodi -acetaminop 2-05 12-13 tablets by s t hen (CADFORCE) 00:00: 05:59 mouth Hosp jo-ann 5-325 mg 00 :00 every 8 l per tablet (eight) hours as needed for severe pain for up to 7 days .acute pain. Max Daily Amount: 6 tablets HYDROcodone 2020-0628 2{tbl} Q8H Take 2 Methodi -acetaminop 2-05 12-13 tablets by s t hen (CADFORCE) 00:00: 05:59 mouth Hosp jo-ann 5-325 mg 00 :00 every 8 l per tablet (eight) hours as needed for severe pain for up to 7 days .acute pain. Max Daily Amount: 6 tablets HYDROcodone 2020-0628 2{tbl} Q8H Take 2 Methodi -acetaminop 2-05 12-13 tablets by s t hen (CADFORCE) 00:00: 05:59 mouth Hosp jo-ann 5-325 mg 00 :00 every 8 l per tablet (eight) hours as needed for severe pain for up to 7 days .acute pain. Max Daily Amount: 6 tablets HYDROcodone 2020-06- No [id number] 2{tbl} Q8H Take 2 Methodi -acetaminop 2-05 12-13 tablets by s t hen (CADFORCE) 00:00: 05:59 mouth Hosp jo-ann 5-325 mg 00 :00 every 8 l per tablet (eight) hours as needed for severe pain for up to 7 days .acute pain. Max Daily Amount: 6 tablets predniSONE 2020-06- No [id number] Take M ethodi (DELTASONE) 07-18 Prednisone s t 50 mg 00:00: 00:00 50mg 13 Hospita tablet 00 :00 hours, 7 l hours, and 1 hour prior to scheduled procedure on 05/19/2021 for contrast allergy prophylaxi s. predniSONE 2020-06- No [id number] Take M ethodi (DELTASONE) 07-1805 Prednisone s t 50 mg 00:00: 00:00 50mg 13 Hospita tablet 00 :00 hours, 7 l hours, and 1 hour prior to scheduled procedure on 05/19/2021 for contrast allergy prophylaxi s. predniSONE 2020-06- No [id number] Take M ethodi (DELTASONE) 07-1805 Prednisone s t 50 mg 00:00: 00:00 50mg 13 Hospita tablet 00 :00 hours, 7 l hours, and 1 hour prior to scheduled procedure on 05/19/2021 for contrast allergy prophylaxi s. predniSONE 2020-06- No [id number] Take M ethodi (DELTASONE) 07-18 Prednisone s t 50 mg 00:00: 00:00 50mg 13 Hospita tablet 00 :00 hours, 7 l hours, and 1 hour prior to scheduled procedure on 05/19/2021 for contrast allergy prophylaxi s. predniSONE 2020-06- No [id number] Take M ethodi (DELTASONE) 07-1805 Prednisone s t 50 mg 00:00: 00:00 50mg 13 Hospita tablet 00 :00 hours, 7 l hours, and 1 hour prior to scheduled procedure on 05/19/2021 for contrast allergy prophylaxi s. predniSONE 2020-06- No [id number] Take M ethodi (DELTASONE) 07-18 12-05 Prednisone s t 50 mg 00:00: 00:00 50mg 13 Hospita tablet 00 :00 hours, 7 l hours, and 1 hour prior to scheduled procedure on 05/19/2021 for contrast allergy prophylaxi s. predniSONE 2020-06- No [id number] Take M ethodi (DELTASONE) 07-18 1205 Prednisone s t 50 mg 00:00: 00:00 50mg 13 Hospita tablet 00 :00 hours, 7 l hours, and 1 hour prior to scheduled procedure on 05/19/2021 for contrast allergy prophylaxi s. predniSONE 2020-06- No [id number] Take M ethodi (DELTASONE) 07-18 12-05 Prednisone s t 50 mg 00:00: 00:00 50mg 13 Hospita tablet 00 :00 hours, 7 l hours, and 1 hour prior to scheduled procedure on 05/19/2021 for contrast allergy prophylaxi s. predniSONE 2020-06- No [id number] Take M ethodi (DELTASONE) 07-18 12-05 Prednisone s t 50 mg 00:00: 00:00 50mg 13 Hospita tablet 00 :00 hours, 7 l hours, and 1 hour prior to scheduled procedure on 05/19/2021 for contrast allergy prophylaxi s. predniSONE 2020-06- No [id number] Take M ethodi (DELTASONE) 07-18 12-05 Prednisone s t 50 mg 00:00: 00:00 50mg 13 Hospita tablet 00 :00 hours, 7 l hours, and 1 hour prior to scheduled procedure on 05/19/2021 for contrast allergy prophylaxi s. linaGLIPtin 2020-06- No 5mg QD Take 5 mg Methodi (TRADJENTA) 07-[address] 5 mg tablet 15:20: [...] 0-03 by mouth. ity of tablet 11:08: [place] [id number] Medical Branch aspirin 81 2020-06 Yes 81mg Take 1 Unive rs mg chewable 0-03 tablet by ity of tablet 11:08: mouth [place] 01 daily. Medical Branch divalproex 2020-06 Yes 500mg Take 500 Un lori ER 0-01 mg by ity of (DEPAKOTE 23:08: mouth 2 [place] ER) 500 mg 36 (two) Medical 24 hr times Branch tablet daily. gabapentin 2020-06 Yes 100mg Take 100 Un lori 100 mg 0-01 mg by ity of capsule 23:08: mouth 2 [place] [address] (two) Medical times Branch daily. vitamin C 2020-06 Yes 2000mg Take 2,000 Univers with sia 0-01 mg by ity of hips 23:08: mouth 2 [place] (VITAMIN C) 36 (two) Medical 1,000 mg times Branch tablet daily. metoprolol 2020-06 Yes 50mg Take 50 mg U nivers tartrate 50 0-01 by mouth ity of mg tablet 23:08: daily. [address] Branch folic 2020-06 Yes 800mg Take 800 Univers acid/vit B 0-01 mg by ity of complex and 23:08: mouth [place] C daily. Medical (DIALYVITE Branch 800 ORAL) linagliptin 2020-06 Yes Take by Uni vers (TRADJENTA) 0-01 mouth. ity of 5 mg tablet 23:08: [address] spironolact 2020-06 Yes 50mg Take 50 mg Univers one 50 mg 0-01 by mouth ity of tablet 23:08: daily. [address] Branch pravastatin 2020-06 Yes 40mg Take 40 mg Univers 40 mg 0-01 by mouth ity of tablet 23:08: daily. [address] Branch mv-mn/iron/ 2020-06 Yes 1{capsu Take 1 U nivers folic 0-01 le} capsule by ity of acid/herb 23:08: mouth [place] 190 daily. Medical (VITAMIN D3 Branch COMPLETE ORAL) SERTraline 2020-06 Yes 50mg Take 50 mg U nivers 50 mg 0-01 by mouth ity of tablet 23:08: daily. [address] Branch calcium 2020-06 Yes 667mg Take 667 Unive rs acetate 667 0-01 mg by ity of mg capsule 23:08: mouth [place] (three) Medical times Branch daily with meals. cetirizine 2020-06 Yes 1{tbl} Take 1 Uni vers HCl/pseudoe 0-01 tablet by ity of phedrine 23:08: mouth [place] (ZYRTEC-D 36 daily. Medical ORAL) Branch furosemide 2020-06 Yes 40mg Take 40 mg U nivers 40 mg 0-01 by mouth 2 ity of tablet 23:08: (two) [place] [id number] times Medical daily. Branch divalproex 2020-06 Yes 500mg Take 500 Un lori ER 0-01 mg by ity of (DEPAKOTE 23:08: mouth 2 [place] ER) 500 mg 36 (two) Medical 24 hr times Branch tablet daily. gabapentin 2020-06 Yes 100mg Take 100 Un lori 100 mg 0-01 mg by ity of capsule 23:08: mouth 2 [place] [address] (two) Medical times Branch daily. vitamin C 2020-06 Yes 2000mg Take 2,000 Univers with sia 0-01 mg by ity of hips 23:08: mouth 2 [place] (VITAMIN C) 36 (two) Medical 1,000 mg times Branch tablet daily. metoprolol 2020-06 Yes 50mg Take 50 mg U nivers tartrate 50 0-01 by mouth ity of mg tablet 23:08: daily. [address] folic 2020-06 Yes 800mg Take 800 Univers acid/vit B 0-01 mg by ity of complex and 23:08: mouth [place] C daily. Medical (DIALYVITE Branch 800 ORAL) linagliptin 2020-06 Yes Take by Uni vers (TRADJENTA) 0-01 mouth. ity of 5 mg tablet 23:08: [address] Branch spironolact 2020-06 Yes 50mg Take 50 mg Univers one 50 mg 0-01 by mouth ity of tablet 23:08: daily. [address] Branch pravastatin 2020-06 Yes 40mg Take 40 mg Univers 40 mg 0-01 by mouth ity of tablet 23:08: daily. [address] mv-mn/iron/ 2020-06 Yes 1{capsu Take 1 [...] l de 50 MG 11:14: 400mg/day. Her braedn Oral Tablet 00 (Same As: Ultram) tramadol [...] janice 8-11 (Same as: l 01:36: Mylicon) Forman Simethicone No Notes: Mendoza janice 8-11 (Same as: l 01:36: Mylicon) Vin Simethicone No Notes: Mendoza janice 8-11 (Same as: l 01:36: Mylicon) Vin Simethicone No Notes: Mendoza janice 8-11 (Same as: l 01:36: Mylicon) Forman Simethicone No Notes: Mendoza janice 8-11 (Same as: l 01:36: Mylicon) Vin 00 epoetin Yes 2,000 unit M[place]za janice giovanny-epbx 8-10 = 1 mL, l 1999 19:37: IV, Vin units/mL 00 Q-M-W-F, preservativ to be e-free given at injectable post solution Dialysis sessions, 0 Refill(s) epoetin Yes 2,000 unit M[place]za janice giovanny-epbx 8-10 = 1 mL, l 1999 19:37: IV, Forman units/mL 00 Q-M-W-F, preservativ to be e-free given at injectable post solution Dialysis sessions, 0 Refill(s) epoetin Yes 2,000 unit M[facility]za janice giovanny-epbx 8-10 = 1 mL, l 1999 19:37: IV, Vin units/mL 00 Q-M-W-F, preservativ to be e-free given at injectable post solution Dialysis sessions, 0 Refill(s) epoetin Yes 2,000 unit Mendoza janice giovanny-epbx 8-10 = 1 mL, l 1999 19:37: IV, [place] units/mL 00 Q-M-W-F, preservativ to be e-free [...] Vin 00 14 tab, 0 Refill(s) amLODIPine Yes 10 mg = 1 Me moria 10 mg oral 8-10 tab, PO, l tablet 19:33: Daily, # Forman 00 30 tab, 2 Refill(s) busPIRone Yes 7.5 mg = 1 Me moria 7.5 mg oral 8-10 tab, PO, l tablet 19:33: BID, 0 Forman 00 Refill(s) buPROPion 0 Yes 75 mg = 1 Mem oria 75 mg oral 8-10 tab, PO, l tablet 19:33: Daily, # 14 tab, 0 Refill(s) amLODIPine 2020-0 Yes 10 mg = 1 Me moria 10 mg oral 8-10 tab, PO, l tablet 19:33: Daily, # Forman 00 30 tab, 2 Refill(s) busPIRone 2020-0 Yes 7.5 mg = 1 Me moria 7.5 mg oral 8-10 tab, PO, l tablet 19:33: BID, 0 Forman 00 Refill(s) buPROPion 2020-0 Yes 75 mg [...] tab, PO, l tablet 19:33: BID, 0 Forman 00 Refill(s) buPROPion 2020-0 Yes 75 mg [...] Memoria 8-10 (Same as: l 17:35: Norvasc) Forman 00 Norvasc No Notes: Memoria 8-10 (Same as: l 17:35: Norvasc) Dextrose 2020-0 No 25 gm, 50 Mendoza [...] mL 01-27 Rate: 20 l 20:28: ml/hr, Forman 00 Infuse over: 50 hr, Route: IV, [...] 01-27 not exceed l 09:29: 4 gm/day. Forman 00 (Same as: Tylenol) tramadol No Notes: [...] 01-27 not exceed l 09:29: 4 gm/day. Forman 00 (Same as: Tylenol) tramadol No Notes: Not Mem oria hydrochlori 01-27 to exceed l de 50 MG 09:29: 400mg/day. Her braden Oral Tablet 00 (Same As: Ultram) heparin No Notes: Memoria 01-27 porcine l 02:00: heparin Vin heparin No Notes: Memoria 01-27 porcine l 02:00: heparin Forman heparin No Notes: Memoria 01-27 porcine l 02:00: heparin Forman heparin No Notes: Memoria 01-27 porcine l 02:00: heparin Forman heparin No Notes: Memoria 01-27 porcine l 02:00: heparin Forman Magnesium No Notes: Memori a Oxide 01-23 (Same as: l 22:54: Mag-Ox Forman 00 400) Magnesium oxide 810dk=599q g elemental magnesium Dose=____m g magnesium oxide (___mg elemental magnesium) Magnesium No Notes: Memori a Oxide 8-05 (Same as: l 22:54: Mag-Ox Vin 400) Magnesium oxide 905ib=275m g elemental magnesium Dose=____m g magnesium oxide (___mg elemental magnesium) Magnesium No Notes: Memori a Oxide 8- (Same as: l 22:54: Mag-Ox Vin 400) Magnesium oxide 678ys=484w g elemental magnesium Dose=____m g magnesium oxide (___mg elemental magnesium) Magnesium No Notes: Memori a Oxide 8-05 (Same as: l 22:54: Mag-Ox Vin 00 400) Magnesium oxide 758rg=960j g elemental magnesium Dose=____m g magnesium oxide (___mg elemental magnesium) Magnesium No Notes: Memori a Oxide 8- (Same as: l 22:54: Mag-Ox Forman 00 400) Magnesium oxide 352zl=244p g elemental magnesium Dose=____m g magnesium oxide [...] Memoria 8-05 Give with l 02:00: food. Forman 00 (Same As: Coreg) Buspar No Notes: Memoria 8-04 (Same As: l 22:00: BuSpar) Vin 00 Buspar No Notes: Memoria 8-04 (Same As: l 22:00: BuSpar) Forman 00 Buspar No Notes: Memoria 8-04 (Same As: l 22:00: BuSpar) Vin 00 Buspar 2021-0 No Notes: Memoria 8-04 (Same As: l 22:00: BuSpar) Forman 00 Buspar No Notes: Memoria 8-04 (Same As: l 22:00: BuSpar) Forman Fentanyl No Notes: Memoria 8-04 (Same as: l 21:06: Sublimaze) Forman Preservati ve free. Fentanyl No Notes: Memoria 8-04 (Same as: l 21:06: Sublimaze) Vin Preservati ve free. Fentanyl No Notes: Memoria 8-04 (Same as: l 21:06: Sublimaze) Forman Preservati ve free. Fentanyl No Notes: Memoria 8-04 (Same as: l 21:06: Sublimaze) Forman Preservati ve free. Fentanyl No Notes: Memoria 8-04 (Same as: l 21:06: Sublimaze) Vin 00 Preservati ve free. Norvasc No Notes: Memoria 8-04 (Same as: l 16:47: Norvasc) Vin Norvasc No Notes: Memoria 8-04 (Same as: l 16:47: Norvasc) Forman 00 Norvasc No Notes: Memoria 8-04 (Same as: l 16:47: Norvasc) Forman Norvasc No Notes: Memoria 8-04 (Same as: l 16:47: Norvasc) Vin 00 Norvasc No Notes: Memoria 8-04 (Same as: l 16:47: Norvasc) Vin 00 Wellbutrin No Notes: Memor ia 8-04 (Same As: l 16:00: Wellbutrin Forman 00 ) Wellbutrin No Notes: Memor ia [...] 8- (Same as: l Tablet 14:00: Lasix) May [...] D3 No Notes: Memor ia 5000 intl 8 Same as : l units oral 14:00: [...] l 09:44: 400mg/day. (Same As: Ultram) Tylenol 0 No Notes: Do Memor ia 8-04 not exceed l 09:44: 4 gm/day. Forman 00 (Same as: Tylenol) Fentanyl 0 No Notes: Memoria 8-04 (Same as: l 09:44: Sublimaze) Vin 00 Preservati ve free. Tramadol 0 No Notes: Not Mem oria 8-04 to exceed l 09:44: 400mg/day. Forman 00 (Same As: Ultram) Tylenol 0 No Notes: Do Memor ia 8-04 not exceed l 09:44: 4 gm/day. Forman 00 (Same as: Tylenol) Fentanyl No Notes: Memoria 8-04 (Same as: l 09:44: Sublimaze) Forman 00 Preservati ve free. Tramadol 0 No Notes: Not Mem oria 8-04 to exceed l 09:44: 400mg/day. Vin 00 (Same As: Ultram) Tylenol 0 No Notes: Do Memor ia 8-04 not exceed l 09:44: 4 gm/day. Vin 00 (Same as: Tylenol) Fentanyl 0 No Notes: Memoria 8-04 (Same as: l 09:44: Sublimaze) Forman 00 Preservati ve free. Tramadol 0 No [...] Memoria 8-04 (Same as: l 04:46: Sublimaze) Forman 00 Preservati ve free. Fentanyl 2020-0 No Notes: Memoria 8-04 (Same as: l 04:46: Sublimaze) Forman 00 Preservati ve free. Fentanyl 0 No Notes: Memoria 8-04 (Same as: l 04:46: Sublimaze) Forman Preservati ve free. Fentanyl No Notes: Memoria 8-04 (Same as: l 04:46: Sublimaze) Forman 00 Preservati ve free. Fentanyl No Notes: Memoria 8-04 (Same as: l 04:46: Sublimaze) Vin 00 Preservat montse free. Fentanyl No Notes: Memoria 8-04 (Same as: l 02:01: Sublimaze) Forman 00 Preservati ve free. Fentanyl No Notes: Memoria 8-04 (Same as: l 02:01: Sublimaze) Vin 00 Preservati ve free. Fentanyl No Notes: Memoria 8-04 (Same as: l 02:01: Sublimaze) Vin 00 Preservati ve free. Fentanyl No Notes: Memoria 8-04 (Same as: l 02:01: Sublimaze) Vin 00 Preservati ve free. Fentanyl No Notes: Memoria 8-04 (Same as: l 02:01: Sublimaze) Forman 00 Preservati ve free. Coreg No Notes: [...] 0.9% 8-04 Same as: l 02:00: BD Forman 00 Posiflush Sterile Valproate 0 No 1,000 mg, Mem oria 8-04 2 tab, l 02:00: Route: PO, Vin 00 Drug form: ERTAB, Bedtime, Start date: 01/21/21 21:00:00 CDT, Duration: 30 day, Stop date: 02/19/21 21:00:00 CDT, 0 Coreg No Notes: Memoria 8-04 Give with l 02:00: food. Forman 00 (Same As: Coreg) Saline No Notes: Memoria Flush 0.9% 8-04 Same as: l 02:00: BD Forman 00 Posiflush Sterile Valproate 0 No 1,000 mg, Mem oria 8-04 2 tab, l 02:00: Route: PO, Forman 00 Drug form: ERTAB, Bedtime, Start date: 01/21/21 21:00:00 CDT, Duration: 30 day, Stop date: 02/19/21 21:00:00 CDT, 0 heparin 2021-0 No Notes: Memoria -03 porcine l 21:00: heparin Vin heparin No Notes: Memoria 8-03 porcine l 21:00: heparin [place] heparin No Notes: Memoria 8-03 porcine l 21:00: heparin [place] heparin No Notes: Memoria -03 porcine l 21:00: heparin Vin heparin No Notes: Memoria -03 porcine l 21:00: heparin [place] 00 Dextrose 0 No 12.5 gm, Memor ia 50% Syringe 01-21 25 mL, l (D50W) 20:01: Route: Forman 00 IVP, Drug Form: INJ, Dosing Weight 74.5, kg, PRN, PRN Blood Glucose Results, Start date: 01/21/21 15:01:00 CDT, Duration: 30 day, Stop date: 02/20/21 15:00:00 CDT, 0 Glucagon No 1 mg, Memoria 01-21 Route: IM, l 20:01: Drug form: Form[place] PDR/INJ, PRN, Dosing Weight 74.5, kg, PRN Blood Glucose Results, Start date: 01/21/21 15:01:00 CDT, Duration: 30 day, Stop date: 02/20/21 15:00:00 CDT, 0 Insulin No Notes: Blasoria Lispro 01-21 (Same as: l 20:01: Humalog) [...] 8-03 Route: IM, l 20:01: Drug form: [place] 00 PDR/INJ, PRN, Dosing Weight 74.5, kg, [...] No 12.5 gm, Memor ia 50% Syringe 8 25 mL, l (D50W) 20:01: Route: Vin [...] Lispro 8- (Same as: l 20:01: Humalog) Forman 00 Roll in palms of hands gently; Do not shake vigorously . WASTE: F/P - Black; E - Municipal Trash Bin Stable for 28 days at room temperatur e. Expires in days from ____Date Dextrose 0 No 12.5 gm, Memor ia 50% Syringe 8- 25 mL, l (D50W) 20:01: Route: Forman 00 IVP, Drug Form: INJ, Dosing Weight [...] Lispro - (Same as: l 20:01: Humalog) Forman 00 Roll in palms of hands gently; Do not shake vigorously . WASTE: F/P - Black; E - Municipal Trash Bin Stable for 28 days at room temperatur e. Expires in days from ____Date Dextrose 2020-0 No 12.5 gm, Memor ia 50% Syringe 01-21 25 mL, l (D50W) 20:01: Route: Forman 00 IVP, Drug Form: INJ, Dosing Weight [...] Same as: l 200 mL 18:26: Cardene Forman (Titrate.) 00 Concentrat IV 40 mg ion: (0.2 mg /1 ml ) Cardene 40 No Notes: Memor ia mg in NS 01-21 Same as: l 200 mL 18:26: Cardene Vin (Titrate.) 00 Concentrat IV 40 mg ion: (0.2 mg /1 ml ) Cardene 40 No Notes: Memor ia mg in NS 01-21 Same as: l 200 mL 18:26: Cardene Forman (Titrate.) 00 Concentrat IV 40 mg ion: (0.2 mg /1 ml ) Cyproheptad No 4 mg, 1 Mem oria ine 01-21 tab, l 18:00: Route: PO, Forman 00 Drug form: TAB, TID, Dosing Weight 72, kg, Start date: 01/21/21 13:00:00 CDT, Duration: 30 day, Stop date: 02/20/21 9:00:00 CDT Cyproheptad 2021-0 No 4 mg, 1 Mem oria ine 8-03 tab, l 18:00: Route: PO, Forman 00 Drug form: TAB, TID, Dosing Weight 72, kg, Start date: 01/21/21 13:00:00 CDT, Duration: 30 day, Stop date: 02/20/21 9:00:00 CDT Cyproheptad 2021-0 No 4 mg, 1 Mem oria ine 8-03 tab, l 18:00: Route: PO, Forman 00 Drug form: TAB, TID, Dosing Weight [...] 02/20/21 9:00:00 CDT Albuterol No Notes: SEE Mn moria 8- RT l 17:49: DOCUMENTAT Forman 00 ION (Same as: Proventil) Albuterol No Notes: SEE Mn moria 8 RT l 17:49: DOCUMENTAT Vin 00 ION (Same as: Proventil) Albuterol No Notes: SEE Mn moria 8 RT l 17:49: DOCUMENTAT Forman 00 ION (Same as: Proventil) Albuterol No Notes: SEE Me moria 8-03 RT l 17:49: DOCUMENTAT Vin ION (Same as: Proventil) Albuterol 0 No Notes: SEE Me moria 8-03 RT l 17:49: DOCUMENTAT Forman ION (Same as: Proventil) albuterol 0 No [...] 0.9% 8-03 Same as: l 17:31: BD Forman 00 Posiflush Sterile propofol No Notes: If M emoria mg/mL 8-03 Diprivan - l (Titrate.) 17:31: change Nidia nn IV 1,000 mg 00 bottle & tubing every 12 hr Per state nursing law propofol can only be given by a nurse if patient is intubated or being intubated (unless the nurse is a FRAME SAMPLE AND PATTERN SUPERVISOR). Same as: Diprivan Nystatin No Notes: Memoria [...] being intubated (unless the nurse is a FRAME SAMPLE AND PATTERN SUPERVISOR). Same as: Diprivan Nystatin No Notes: Memoria 100 UNT/MG 8-03 (Same l Topical 17:31: as:Mycosta Herm naeem Powder 00 tin, Nilstat) For external use only. Saline No Notes: Memoria Flush 0.9% 8-03 Same as: l 17:31: BD Forman 00 Posiflush Sterile propofol No Notes: If M emoria mg/mL 8-03 Diprivan - l (Titrate.) 17:31: change Nidia nn IV 1,000 mg 00 bottle & tubing every 12 hr Per state nursing law propofol can only be given by a nurse if patient is intubated or being intubated (unless the nurse is a FRAME SAMPLE AND PATTERN SUPERVISOR). Same as: Diprivan Nystatin No Notes: Memoria 100 UNT/MG 8-03 (Same l Topical 17:31: as:Mycosta Herm naeem Powder 00 tin, Nilstat) For external use only. Saline No Notes: Memoria Flush 0.9% 8- Same as: l 17:31: BD Vin 00 Posiflush Sterile propofol 10 No Notes: If M emoria mg/mL 8-03 Diprivan - l (Titrate.) 17:31: change Nidia nn IV 1,000 mg 00 bottle & tubing every 12 hr Per state nursing law propofol can only be given by a nurse if patient is intubated or being intubated (unless the nurse is a FRAME SAMPLE AND PATTERN SUPERVISOR). Same as: Diprivan Nystatin No Notes: Memoria 100 UNT/MG 803 (Same l Topical 17:31: as:Mycosta Herm naeem Powder 00 tin, Nilstat) For external use only. Saline No Notes: Memoria Flush 0.9% 803 Same as: l 17:31: BD Forman 00 Posiflush Sterile propofol 10 No Notes: If M emoria mg/mL 8-03 Diprivan - l (Titrate.) 17:31: change Nidia nn IV 1,000 mg 00 bottle & tubing every 12 hr Per state nursing law propofol can only be given by a nurse if patient is intubated or being intubated (unless the nurse is a FRAME SAMPLE AND PATTERN SUPERVISOR). Same as: Diprivan midazolam No Route: IV, Me moria (ANES) 01-21 Drug form: l 17:18: SOLN, Vin 00 ONCE, Stop date: 01/21/21 12:18:00 CDT fentaNYL No Route: IV, Mem oria (ANES) 01-21 Drug form: l 17:18: INJ, ONCE, Forman 00 Stop date: 01/21/21 12:18:00 CDT niCARdipine No Route: IV, Memoria (ANES) 01-21 Drug form: l 17:18: INJ, ONCE, Forman 00 Stop date: 01/21/21 12:18:00 CDT midazolam 2020-0 No Route: IV, Me moria (ANES) 01-21 Drug form: l 17:18: SOLN, Forman ONCE, Stop date: 01/21/21 12:18:00 CDT fentaNYL 2020-0 No Route: IV, Mem oria (ANES) 01-21 Drug form: l 17:18: INJ, ONCE, Forman 00 Stop date: 01/21/21 12:18:00 CDT niCARdipine 0 No Route: IV, Memoria (ANES) 01-21 Drug form: l 17:18: INJ, ONCE, Vin 00 Stop date: 01/21/21 12:18:00 CDT midazolam 2020-0 No Route: IV, Me moria (ANES) 01-21 Drug form: l 17:18: SOLN, Forman ONCE, Stop date: 01/21/21 12:18:00 CDT fentaNYL 2020-0 No Route: IV, Mem oria (ANES) 01-21 Drug form: l 17:18: INJ, ONCE, Stop date: 01/21/21 12:18:00 CDT niCARdipine 0 No Route: IV, Memoria (ANES) 01-21 Drug form: l 17:18: INJ, ONCE, Stop date: 01/21/21 12:18:00 CDT midazolam 2020-0 No Route: IV, Me moria (ANES) 01-21 Drug form: l 17:18: SOLN, Forman ONCE, Stop date: 01/21/21 12:18:00 CDT fentaNYL 2020-0 No Route: IV, Mem oria (ANES) 01-21 Drug form: l 17:18: INJ, ONCE, Forman 00 Stop date: 01/21/21 12:18:00 CDT niCARdipine [...] ONCE, Stop date: 01/21/21 9:51:00 CDT lidocaine 2021-0 No Route: IV, Me moria (ANES) [...] CDT, Stop date: 01/21/21 10:20:00 CDT propofol 202-0 No Route: IV, Mem oria (ANES) 10 01-21 Drug form: l mg 14:20: INJ, Start date: 01/21/21 9:20:00 CDT, Stop date: 01/21/21 10:20:00 CDT propofol 2020-0 No Route: IV, Mem oria (ANES) 10 01-21 Drug form: l mg 14:20: INJ, Start date: 01/21/21 9:20:00 CDT, Stop date: 01/21/21 10:20:00 CDT propofol 202-0 No Route: IV, Mem [...] 9:17:00 CDT, Stop date: 01/21/21 10:17:00 CDT Simethicone No Notes: Mendoza janice 8-03 (Same as: l 13:16: Mylicon, Phazyme, Genasyme) [...] as: Proventil) Ondansetron No Notes: Mendoza janice 03 (Same as: l 13:16: Zofran) MEDICATION WASTE [...] janice 8 (Same as: l 13:16: Mylicon, Forman Phazyme, Genasyme) Hydralazine No Notes: Mendoza janice [...] l 13:16: Romazicon) Naloxone No Notes: Memoria - Same as l 13:16: Narcan Albuterol No Notes: SEE Me moria 0.83 MG/ML 01-21 RT l Inhalant 13:16: DOCUMENTAT Her braden Solution 00 ION (Same as: Proventil) Ondansetron No Notes: Mendoza janice 8 (Same as: l 13:16: Zofran) MEDICATION WASTE Product Size: 4 mg Product Wasted: ___ mg Promethazin No Notes: Do M emoria e 8-03 not give l 13:16: IV push. Forman 00 (Same as: Phenergan) calcium No See Memoria acetate 667 8-03 [...] 5,000 UT mansi (D3-5) 7-16 Units by [facility] th 5,000 Units 13:03: mouth 1 tablet [...] 1 00 (one) time each day. rifaximin 2021-0 Yes 550 mg = 1 Me moria 550 MG Oral 7-06 tab, PO, l Tablet 18:46: TID, # 42 Jake n [XIFAXAN] 00 tab, 2 Refill(s), Pharmacy: [facility], 154.94, cm, 12/24/20 10:43:00 CDT, Height, 71.818, kg, 12/24/20 10:43:00 CDT, Weight rifaximin 1-0 Yes 550 mg = 1 Me moria 550 MG Oral 7-06 tab, PO, l Tablet 18:46: TID, # 42 Jake n [XIFAXAN] 00 tab, 2 Refill(s), Pharmacy: [facility], 154.94, cm, 12/24/20 10:43:00 CDT, Height, 71.818, kg, 12/24/20 10:43:00 CDT, Weight rifaximin 1-0 Yes 550 mg = 1 Me moria 550 MG Oral 7-06 tab, PO, l Tablet 18:46: TID, # 42 Jake n [XIFAXAN] 00 tab, 2 Refill(s), Pharmacy: [facility], 154.94, cm, 12/24/20 10:43:00 CDT, Height, 71.818, kg, 12/24/20 10:43:00 CDT, Weight rifaximin 1-0 Yes 550 mg = 1 Me moria 550 MG Oral 7-06 tab, PO, l Tablet 18:46: TID, # 42 Jake n [XIFAXAN] 00 tab, 2 Refill(s), Pharmacy: [facility], 154.94, cm, 12/24/20 10:43:00 CDT, Height, 71.818, kg, 12/24/20 10:43:00 CDT, Weight rifaximin 2021-0 Yes 550 mg = 1 Me moria 550 MG Oral 7-06 tab, PO, l Tablet 18:46: TID, # 42 Jake n [XIFAXAN] 00 tab, 2 Refill(s), Pharmacy: [facility], 154.94, cm, 12/24/20 10:43:00 CDT, Height, 71.818, kg, 12/24/20 10:43:00 CDT, Weight {2 (480 ML 2020-0 Yes See Memoria Magnesium 7-06 Instructio l Sulfate 18:12: ns, take Jake n 0.0277 00 as MEQ/ML / directed, potassium give sulfate clenpiq if 0.0374 not MEQ/ML / covered by sodium insurance, sulfate # 1 ea, 0 0.257 Refill(s), MEQ/ML Oral Pharmacy: Solution) } [facility] [Suprep 808, Bowel Prep 154.94, Kit] [...] 0.257 Refill(s), MEQ/ML Oral Pharmacy: Solution) } [facility] [Suprep 808, Bowel Prep 154.94, Kit] [...] 0.257 Refill(s), MEQ/ML Oral Pharmacy: Solution) } [facility] [Suprep 808, Bowel Prep 154.94, Kit] [...] 0.257 Refill(s), MEQ/ML Oral Pharmacy: Solution) } [facility] [Suprep 808, Bowel Prep 154.94, [...] 0.257 Refill(s), MEQ/ML Oral Pharmacy: Solution) } [facility] [Suprep 808, Bowel Prep 154.94, [...] day, # 90 tab, 3 Refill(s), Pharmacy: [facility], 154.94, cm, 12/24/20 10:43:00 CDT, Height, 71.818, kg, 12/24/20 10:43:00 CDT, Weight cyproheptad 2020-0 Yes 4 mg = 1 Me moria ine 4 mg 7-06 tab, PO, l oral tablet 18:10: TID, X 30 H ermann 00 day, # 90 tab, 3 Refill(s), Pharmacy: [facility], 154.94, cm, 12/24/20 10:43:00 CDT, Height, 71.818, kg, 12/24/20 10:43:00 CDT, Weight cyproheptad 2020-0 Yes 4 mg = 1 Me moria ine 4 mg 7-06 tab, PO, l oral tablet 18:10: TID, X 30 H ermann 00 day, # 90 tab, 3 Refill(s), Pharmacy: [facility], 154.94, cm, 12/24/20 10:43:00 CDT, Height, 71.818, kg, 12/24/20 10:43:00 CDT, Weight cyproheptad 2020-0 Yes 4 mg = 1 Me moria ine 4 mg 7-06 tab, PO, l oral tablet 18:10: TID, X 30 H ermann 00 day, # 90 tab, 3 Refill(s), Pharmacy: [facility], 154.94, cm, 12/24/20 10:43:00 CDT, Height, 71.818, kg, 12/24/20 10:43:00 CDT, Weight Zinc 2020-0 Yes 140 mg, Memoria 7-06 PO, Daily, l 15:54: 0 Forman 00 Refill(s) Elderberry 2020-0 Yes 0 Memoria [...] 0 Memoria 5000 706 Refill(s) l 15:53: Vin 00 traZODone 2020-0 Yes 200mg QD Take 200 [...] Take 500 UT (Depakote 6-19 mg by [facility]) 500 MG 00:00: mouth 2 24 hr 00 (two) tablet times a day. busPIRone 2020-0 Yes 7.5mg Q.5D Take 7.5 UT (Buspar) 6-19 mg by [facility] 7.5 MG 00:00: mouth 2 tablet 00 (two) times a day. buPROPion 0 Yes 300mg Take 300 UT XL 6-19 mg by [facility] (Wellbutrin 00:00: mouth 1 XL) 300 MG 00 (one) time 24 hr each day tablet in the morning. busPIRone 2020-0 Yes 7.5mg Take 7.5 Uni vers 7.5 mg 6-19 mg by ity of tablet 00:00: mouth 2 [place] 00 (two) Medical times Branch daily. metoprolol 2020-0 Yes 1{tbl} QD Take 1 UT succinate 5-25 tablet by [facility] h XL 00:00: mouth 1 (Toprol-XL) 00 (one) time 50 MG 24 hr each day. tablet ascorbic 2020-0 Yes 500mg Q.79565091 Take 500 UT acid 5-15 [id number] mg by [facility] (Vitamin C) 00:00: 3D mouth 3 500 MG 00 (three) tablet times a day. sucralfate 2020-0 Yes 1{tbl} QD Take 1 UT (Carafate) 5-10 tablet by [facility] th 1 g tablet 00:00: mouth 1 00 (one) time each day. zinc Yes DAILY [facility] sulfate 50 5-10 ity of mg zinc 00:00: [place] (220 mg) 00 Medical capsule Branch ondansetron Yes 4mg Take 4 mg U nivers 4 mg 4-13 by mouth ity of disintegrat [place] tablet 00 [facility] GLIPIZIDE 5 Yes [id number] TAKE 1 [facility] mg tablet 4-06 TABLET [...] mouth at [place] 00 bedtime. Medical Branch doxazosin 4 Yes 4mg Take 1 Univ ers mg tablet -07 tablet by ity o f 00:00: mouth at [place] 00 bedtime. Medical Branch glipiZIDE 5 2019-06- No [id number] 5mg Take 1 [facility] mg tablet 1-11 [...] [place] tablet 00 daily. Medical Branch calcium 2020-0 Yes 667mg Take 667 Unive rs acetate,domingo 9-15 mg by ity of sphat bind, 00:00: [place] 667 mg 00 Medical capsule [facility] traZODone 2019-0 Yes 150mg Take 150 Uni vers 150 mg 8-13 mg by ity of tablet 00:00: mouth at [place] 00 bedtime. Medical Branch traZODone 2019-0 Yes 150mg Take 150 Uni vers 150 mg 8-13 mg by ity of tablet 00:00: mouth at [place] 00 bedtime. Medical Branch erythromyci 2020- No [id number] .5[in_u Place 0.5 Univers n 5 mg/gram [...] l 59 Center hydrALAZINE 2017-0 Yes 100mg Q.45976693 Take [address] [facility] (APRESOLINE 7-20 [id number] mg by L ukes ) 100 MG 15:20: 3D mouth 3 Medica l tablet 59 (three) Center times daily. magnesium 2017-0 Yes 400mg QD Take [address] [facility] oxide 7-20 mg by [facility] (MAG-OX) 15:20: mouth Medical 400 mg 59 daily. Center tablet metoclopram 2017-0 Yes 10mg Q.60337823 Take [address] [facility] gadiel HCl 7-20 [id number] by mouth 3 [facility] (REGLAN) 10 15:20: [...] l 59 Center hydrALAZINE 2017-0 Yes 100mg Q.98774132 Take [address] [facility] (APRESOLINE 7-20 [id number] mg by L es ) 100 MG 15:20: 3D mouth 3 Medica l tablet 59 (three) Center times daily. magnesium 2017-0 Yes 400mg QD Take [address] [facility] oxide 7-20 mg by [facility] (MAG-OX) 15:20: mouth Medical 400 mg 59 daily. Center tablet metoclopram 2017-0 Yes 10mg Q.23131568 Take [address] [facility] gadiel HCl 7-20 [id number] by mouth 3 [facility] (REGLAN) 10 15:20: [...] l 59 Center hydrALAZINE 2017-0 Yes 100mg Q.67685230 Take [address] [facility] (APRESOLINE 7-20 [id number] mg by L ukes ) 100 MG 15:20: 3D mouth 3 Medica l tablet 59 (three) Center times daily. magnesium 2017- Yes 400mg QD Take [address] [facility] oxide 7-20 mg by [facility] (MAG-OX) 15:20: mouth Medical 400 mg 59 daily. Center tablet metoclopram 2017- Yes 10mg Q.55462808 Take [address] [facility] gadiel HCl 7-20 [id number] by mouth 3 [facility] (REGLAN) 10 15:20: [...] l 59 Center hydrALAZINE 2017-0 Yes 100mg Q.60223804 Take [address] [facility] (APRESOLINE 7-20 [id number] mg by L ukes ) 100 MG 15:20: 3D mouth 3 Medica l tablet 59 (three) Center times daily. magnesium 2017-0 Yes 400mg QD Take [address] [facility] oxide 7-20 mg by [facility] (MAG-OX) 15:20: mouth Medical 400 mg 59 daily. Center tablet metoclopram 2017-0 Yes 10mg Q.89972251 Take [address] [facility] gadiel HCl 7-20 [id number] by mouth 3 [facility] (REGLAN) 10 15:20: [...] l 59 Center hydrALAZINE 2017-0 Yes 100mg Q.83016797 Take [address] [facility] (APRESOLINE 7-20 [id number] mg by L ukes ) 100 MG 15:20: 3D mouth 3 Medica l tablet 59 (three) Center times daily. magnesium 2017-0 Yes 400mg QD Take [address] [facility] oxide 7-20 mg by [facility] (MAG-OX) 15:20: mouth Medical 400 mg 59 daily. Center tablet metoclopram 2017-0 Yes 10mg Q.32023719 Take [address] [facility] gadiel HCl 7-20 [id number] by mouth 3 [facility] (REGLAN) 10 15:20: [...] l 59 Center hydrALAZINE 2017-0 Yes 100mg Q.71185230 Take [address] [facility] (APRESOLINE 7-20 [id number] mg by L ukes ) 100 MG 15:20: 3D mouth 3 Medica l tablet 59 (three) Center times daily. magnesium 2017-0 Yes 400mg QD Take [address] [facility] oxide 7-20 mg by [facility] (MAG-OX) 15:20: mouth Medical 400 mg 59 daily. Center tablet metoclopram 2017-0 Yes 10mg Q.81354646 Take [address] [facility] gadiel HCl 7-20 [id number] by mouth 3 [facility] (REGLAN) 10 15:20: [...] l 59 Center hydrALAZINE 2017-0 Yes 100mg Q.41119075 Take [address] [facility] (APRESOLINE 7-20 [id number] mg by L ukes ) 100 MG 15:20: 3D mouth 3 Medica l tablet 59 (three) Center times daily. magnesium 2017-0 Yes 400mg QD Take [address] [facility] [address] oxide 7-20 mg by [facility] (MAG-OX) 15:20: mouth Medical 400 mg 59 daily. Center tablet metoclopram 2017-0 Yes 10mg Q.25042661 Take [address] [facility] gadiel HCl 7-20 [id number] by mouth 3 [facility] (REGLAN) 10 15:20: [...] l 59 Center hydrALAZINE 2017-0 Yes 100mg Q.33988324 Take [address] [facility] (APRESOLINE 7-20 [id number] mg by L ukes ) 100 MG 15:20: 3D mouth 3 Medica l tablet 59 (three) Center times daily. magnesium 2017-0 Yes 400mg QD Take [address] [facility] [address] oxide 7-20 mg by [facility] (MAG-OX) 15:20: mouth Medical 400 mg 59 daily. Center tablet metoclopram 2017-0 Yes 10mg Q.32817160 Take [address] [facility] gadiel HCl 7-20 [id number] by mouth 3 [facility] (REGLAN) 10 15:20: [...] l 59 Center hydrALAZINE 2017-0 Yes 100mg Q.50278378 Take [address] [facility] (APRESOLINE 7-20 [id number] mg by L ukes ) 100 MG 15:20: 3D mouth 3 Medica l tablet 59 (three) Center times daily. magnesium 2017-0 Yes 400mg QD Take [address] [facility] [address] oxide 7-20 mg by [facility] (MAG-OX) 15:20: mouth Medical 400 mg 59 daily. Center tablet metoclopram 2017-0 Yes 10mg Q.95625698 Take [address] [facility] gadiel HCl 7-20 [id number] by mouth 3 [facility] (REGLAN) 10 15:20: [...] l 59 Center hydrALAZINE 2017-0 Yes 100mg Q.77838724 Take [address] [facility] [address] (APRESOLINE 7-20 [id number] mg by L ukes ) 100 MG 15:20: 3D mouth 3 Medica l tablet 59 (three) Center times daily. magnesium 2017-0 Yes 400mg QD Take [address] [facility] [address] oxide 7-20 mg by [facility] (MAG-OX) 15:20: mouth Medical 400 mg 59 daily. Center tablet metoclopram 2017-0 Yes 10mg Q.29471921 Take [address] [facility] gadiel HCl 7-20 [id number] by mouth 3 [facility] (REGLAN) 10 15:20: [...] depression daily. Med ical tablet 59 Center divalproex 2017- Yes depression 500mg QD Take [...] (six) Center hours as needed for Pain. medroxyPROG 2017- Yes In[facility] ESTERone 7-20 intramuscu [facility] (DEPO-PROVE 15:20: larly Medic al RA) 150 59 every 3 Center mg/mL (three) injection months. pantoprazol 2017-0 Yes 40mg QD Take [address] [facility] e 7-20 by mouth [facility] (PROTONIX) 15:20: daily. Medic al 40 MG 59 Center tablet amLODIPine 2017-0 Yes 10mg QD Take [address] (NORVASC) 5 7-20 by mouth Luke [facility] MG tablet 15:20: daily. Medica l 59 Center hydrALAZINE 2017-0 Yes 100mg Q.14456056 Take [address] [facility] [address] (APRESOLINE 7-20 [id number] mg by L ukes ) 100 MG 15:20: 3D mouth 3 Medica l tablet 59 (three) Center times daily. magnesium 2017-0 Yes 400mg QD Take [address] [facility] [address] oxide 7-20 mg by [facility] (MAG-OX) 15:20: mouth Medical 400 mg 59 daily. Center tablet metoclopram 2017-0 Yes 10mg Q.12429213 Take [address] [facility] gdaiel HCl 7-20 [id number] by mouth 3 [facility] (REGLAN) 10 15:20: [...] l 59 Center hydrALAZINE 2017-0 Yes 100mg Q.87577086 Take [address] [facility] [address] (APRESOLINE 7-20 [id number] mg by L ukes ) 100 MG 15:20: 3D mouth 3 Medica l tablet 59 (three) Center times daily. magnesium 2017-0 Yes 400mg QD Take [address] [facility] [address] oxide 7-20 mg by [facility] (MAG-OX) 15:20: mouth Medical 400 mg 59 daily. Center tablet metoclopram 2017-0 Yes 10mg Q.81812259 Take [address] [facility] gadiel HCl 7-20 [id number] by mouth 3 [facility] (REGLAN) 10 15:20: [...] l 59 Center hydrALAZINE 2017-0 Yes 100mg Q.28108826 Take [address] [facility] [address] (APRESOLINE 7-20 [id number] mg by L ukes ) 100 MG 15:20: 3D mouth 3 Medica l tablet 59 (three) Center times daily. magnesium 2017-0 Yes 400mg QD Take [address] [facility] [address] oxide 7-20 mg by [facility] (MAG-OX) 15:20: mouth Medical 400 mg 59 daily. Center tablet metoclopram 2017-0 Yes 10mg Q.48344526 Take [address] [facility] gadiel HCl 7-20 [id number] by mouth 3 [facility] (REGLAN) 10 15:20: [...] l 59 Center hydrALAZINE 2017-0 Yes 100mg Q.69415953 Take [address] [facility] [address] (APRESOLINE 7-20 [id number] mg by L ukes ) 100 MG 15:20: 3D mouth 3 Medica l tablet 59 (three) Center times daily. magnesium 2017- Yes 400mg QD Take [address] [facility] [address] oxide 7-20 mg by [facility] (MAG-OX) 15:20: mouth Medical 400 mg 59 daily. Center tablet metoclopram 2017-0 Yes 10mg Q.46785248 Take [address] [facility] gadiel HCl 7-20 [id number] by mouth 3 [facility] (REGLAN) 10 15:20: [...] tablet 59 bipolar daily. Center disorder divalproex 2017- Yes depression 500mg QD Take [...] l 59 Center hydrALAZINE 2017-0 Yes 100mg Q.35693851 Take [address] [facility] [address] (APRESOLINE 7-20 [id number] mg by L ukes ) 100 MG 15:20: 3D mouth 3 Medica l tablet 59 (three) Center times daily. magnesium 2017-0 Yes 400mg QD Take [address] [facility] oxide 7-20 mg by [facility] (MAG-OX) 15:20: mouth Medical 400 mg 59 daily. Center tablet metoclopram 2017-0 Yes 10mg Q.65506864 Take [address] [facility] gadiel HCl 7-20 [id number] by mouth 3 [facility] (REGLAN) 10 15:20: [...] l 59 Center hydrALAZINE 2017-0 Yes 100mg Q.12935007 Take [address] [facility] (APRESOLINE 7-20 [id number] mg by L ukes ) 100 MG 15:20: 3D mouth 3 Medica l tablet 59 (three) Center times daily. magnesium 2017-0 Yes 400mg QD Take [address] [facility] [address] oxide 7-20 mg by [facility] (MAG-OX) 15:20: mouth Medical 400 mg 59 daily. Center tablet metoclopram 2017-0 Yes 10mg Q.54568366 Take [address] [facility] gadiel HCl 7-20 [id number] by mouth 3 [facility] (REGLAN) 10 15:20: [...] l 59 Center hydrALAZINE 2017-0 Yes 100mg Q.27210846 Take [address] [facility] [address] (APRESOLINE 7-20 [id number] mg by L ukes ) 100 MG [...] daily. Center tablet metoclopram 2017-0 Yes 10mg Q.31978192 Take [address] [facility] gadiel HCl 7-20 [id number] by mouth 3 [facility] (REGLAN) 10 15:20: [...] l 59 Center hydrALAZINE 2017-0 Yes 100mg Q.16910237 Take [address] [facility] [address] (APRESOLINE 7-20 [id number] mg by L ukes ) 100 MG 15:20: 3D mouth 3 Medica l tablet 59 (three) Center times daily. magnesium 2017-0 Yes 400mg QD Take [address] [facility] [address] oxide 7-20 mg by [facility] (MAG-OX) 15:20: mouth Medical 400 mg 59 daily. Center tablet metoclopram 2017-0 Yes 10mg Q.91914587 Take [address] [facility] gadiel HCl 7-20 [id number] by mouth 3 [facility] (REGLAN) 10 15:20: [...] needed for Nausea. hydrALAZINE 2017-0 Yes 100mg Q.52293439 Take [address] [facility] [address] (APRESOLINE 7-20 [id number] mg by L ukes ) 100 MG [...] l 59 Center hydrALAZINE 2017-0 Yes 100mg Q.32944708 Take [address] [facility] [address] (APRESOLINE 7-20 [id number] mg by L ukes ) 100 MG 15:20: 3D mouth 3 Medica l tablet 59 (three) Center times daily. magnesium 2017-0 Yes 400mg QD Take [address] [facility] [address] oxide 7-20 mg by [facility] (MAG-OX) 15:20: mouth Medical 400 mg 59 daily. Center tablet metoclopram 2017-0 Yes 10mg Q.31709390 Take [address] [facility] gadiel HCl 7-20 [id number] by mouth 3 [facility] (REGLAN) 10 15:20: [...] 3 Center mg/mL (three) injection months. magnesium 2017- Yes 400mg QD Take 400 [...] l 59 Center hydrALAZINE 2017-0 Yes 100mg Q.[id number] Take [address] [facility] (APRESOLINE 7-20 [id number] mg by [facility] ) 100 MG 15:20: 3D mouth 3 [facility] l tablet 59 (three) Center times daily. magnesium 2017-0 Yes 400mg QD Take [address] [facility] oxide 7-20 [facility] (MAG-OX) 15:20: [facility] 400 mg 59 daily. Center tablet metoclopram 2017-0 Yes 10mg Q.[id number] Take [address] [facility] gadiel HCl 7-20 [id number] by [facility] (REGLAN) 10 15:20: [...] tablet 59 Center metoclopram 2017-0 Yes 10mg Q.[id number] Take [address] [facility] gadiel HCl 7-20 [id number] [facility] (REGLAN) 10 15:20: [...] l 59 Center hydrALAZINE 2017-0 Yes 100mg Q.[id number] Take [address] [facility] (APRESOLINE 7-20 [id number] mg by [facility] ) 100 MG 15:20: 3D mouth 3 [facility] tablet 59 (three) Center times daily. magnesium 2017-0 Yes 400mg QD Take [address] [facility] oxide 7-20 [facility] (MAG-OX) 15:20: [facility] 400 mg 59 daily. Center tablet metoclopram 2017-0 Yes 10mg Q.[id number] Take [address] [facility] gadiel HCl 7-20 [id number] by [facility] (REGLAN) 10 15:20: 3D (three) Med ical MG tablet 59 times Center daily. meclizine 2017 Yes 12.5mg Take 12.[address] (ANTIVERT) 7-20 [facility] 15:20: mouth 3 [facility] tablet 59 (three) Center times daily as needed. meclizine 2017- Yes 12.5mg Take 12.5 C [...] l 59 Center hydrALAZINE 2017 Yes 100mg Q.[id number] Take [address] [facility] (APRESOLINE 7-20 [id number] mg by [facility] ) 100 MG 15:20: 3D mouth 3 Medica l tablet 59 (three) Center times daily. sertraline 2017 Yes anxiety QD Take by [facility] (ZOLOFT) 7-20 [facility] 100 MG 15:20: depression daily. Med ical tablet 59 Center magnesium 2017 Yes 400mg QD Take [address] [facility] oxide 7-20 mg by [facility] (MAG-OX) 15:20: mouth [facility] 400 mg 59 daily. Center tablet metoclopram 2017 Yes 10mg Q.[id number] Take [address] [facility] gadiel HCl 7-20 [id number] by mouth 3 [facility] (REGLAN) 10 15:20: [...] Medic al 40 MG 59 Center tablet medroxyPROG 2017-[address] [facility] ESTERone 7-20 [facility] (DEPO-PROVE 15:20: larly Medic al RA) 150 59 every 3 Center mg/mL (three) injection months. amLODIPine 2017-0 Yes 10mg QD Take [address] [facility] (NORVASC) 5 7-20 by mouth [facility] MG tablet 15:20: daily. Medica l 59 Center hydrALAZINE 2017-0 Yes 100mg Q.[id number] Take [address] [facility] (APRESOLINE 7-20 [id number] mg by L ukes ) 100 MG 15:20: 3D mouth 3 Medica l tablet 59 (three) Center times daily. magnesium 2017-0 Yes 400mg QD Take [address] [facility] oxide 7-20 mg by [facility] (MAG-OX) 15:20: mouth Medical 400 mg 59 daily. Center tablet metoclopram 2017-0 Yes 10mg Q.72095635 Take [address] [facility] gadiel HCl 7-20 [id number] by mouth 3 [facility] (REGLAN) 10 15:20: [...] l 59 Center hydrALAZINE 2017-0 Yes 100mg Q.[id number] Take [address] [facility] (APRESOLINE 7-20 [id number] mg by L es ) 100 MG 15:20: 3D mouth 3 Medica l tablet 59 (three) Center times daily. magnesium 2017-0 Yes 400mg QD Take [address] [facility] oxide 7-20 mg by [facility] (MAG-OX) 15:20: mouth Medical 400 mg 59 daily. Center tablet metoclopram 2017-0 Yes 10mg Q.71726362 Take [address] [facility] gadiel HCl 7-20 [id number] by mouth 3 [facility] (REGLAN) 10 15:20: [...] l 59 Center hydrALAZINE 2017-0 Yes 100mg Q.[id number] Take [address] [facility] (APRESOLINE 7-20 [id number] mg by L ukes ) 100 MG 15:20: 3D mouth 3 Medica l tablet 59 (three) Center times daily. magnesium 2017-0 Yes 400mg QD Take [address] [facility] oxide 7-20 mg by [facility] (MAG-OX) 15:20: mouth Medical 400 mg 59 daily. Center tablet metoclopram 2017-0 Yes 10mg Q.[id number] Take [address] [facility] gadiel HCl 7-20 [id number] by mouth 3 [facility] (REGLAN) 10 15:20: [...] l 59 Center hydrALAZINE 2017-0 Yes 100mg Q.[id number] Take [address] [facility] (APRESOLINE 7-20 [id number] mg by L ukes ) 100 MG 15:20: 3D mouth 3 Medica l tablet 59 (three) Center times daily. magnesium 2017-0 Yes 400mg QD Take [address] [facility] oxide 7-20 mg by [facility] (MAG-OX) 15:20: mouth Medical 400 mg 59 daily. Center tablet metoclopram 2017-0 Yes 10mg Q.24764020 Take [address] [facility] gadiel HCl 7-20 [id number] by mouth 3 [facility] (REGLAN) 10 15:20: [...] tablet 15:20: daily. Medica l 59 Center pantoprazol 2017-0 Yes 40mg QD Take [address] [facility] e 7-20 by mouth [facility] (PROTONIX) 15:20: daily. Medic al 40 MG 59 Center tablet hydrALAZINE 2017- Yes 100mg Q.[id number] Take [address] [facility] (APRESOLINE 7-20 [id number] mg by L ukes ) 100 MG 15:20: 3D mouth 3 Medica l tablet 59 (three) Center times daily. magnesium 2017- Yes 400mg QD Take [address] [facility] [address] oxide 7-20 mg by [facility] (MAG-OX) 15:20: mouth Medical 400 mg 59 daily. Center tablet metoclopram 2017-0 Yes 10mg Q.55637581 Take [address] [facility] gadiel HCl 7-20 [id number] by mouth 3 [facility] (REGLAN) 10 15:20: [...] (six) Center hours as needed for Pain. amLODIPine 2017- Yes 10mg QD Take [address] [facility] (NORVASC) 5 7-20 by mouth [facility] MG tablet 15:20: daily. Medica l 59 Center pantoprazol 2017-0 Yes 40mg QD Take [address] [facility] e 7-20 by mouth [facility] (PROTONIX) 15:20: daily. Medic al 40 MG 59 Center tablet amLODIPine 2017-0 Yes 10mg QD Take [address] [facility] (NORVASC) 5 7-20 by mouth [facility] MG tablet 15:20: daily. Medica l 59 Center hydrALAZINE 2017-0 Yes 100mg Q.[id number] Take [address] [facility] (APRESOLINE 7-20 [id number] mg by L ukes ) 100 MG 15:20: 3D mouth 3 Medica l tablet 59 (three) Center times daily. magnesium 2017-0 Yes 400mg QD Take [address] [facility] oxide 7-20 mg by [facility] (MAG-OX) 15:20: mouth Medical 400 mg 59 daily. Center tablet metoclopram 2017-0 Yes 10mg Q.22655779 Take [address] [facility] gadiel HCl 7-20 [id number] by mouth 3 [facility] (REGLAN) 10 15:20: [...] every 3 Center mg/mL (three) injection months. hydrALAZINE 2017-0 Yes 100mg Q.[id number] Take [address] [facility] (APRESOLINE 7-20 [id number] mg by L ukes ) 100 MG 15:20: 3D mouth 3 Medica l tablet 59 (three) Center times daily. magnesium 2017-0 Yes 400mg QD Take [address] [facility] oxide 7-20 mg by [facility] (MAG-OX) 15:20: mouth Medical 400 mg 59 daily. Center tablet metoclopram 2017-0 Yes 10mg Q.[id number] Take [address] [facility] gadiel HCl 7-20 [id number] by mouth 3 [facility] (REGLAN) 10 15:20: [...] l 59 Center hydrALAZINE 2017-0 Yes 100mg Q.[id number] Take [address] [facility] [address] (APRESOLINE 7-20 [id number] mg by L ukes ) 100 MG 15:20: 3D mouth 3 Medica l tablet 59 (three) Center times daily. magnesium 2017-0 Yes 400mg QD Take [address] [facility] oxide 7-20 mg by [facility] (MAG-OX) 15:20: mouth Medical 400 mg 59 daily. Center tablet metoclopram 2017-0 Yes 10mg Q.32540063 Take [address] [facility] gadiel HCl 7-20 [id number] by mouth [facility] (REGLAN) 10 15:20: [...] l 59 Center hydrALAZINE 2017-0 Yes 100mg Q.[id number] Take [address] [facility] (APRESOLINE 7-20 [id number] mg by L ukes ) 100 MG 15:20: 3D mouth 3 Medica l tablet 59 (three) Center times daily. magnesium 2017-0 Yes 400mg QD Take [address] [facility] oxide 7-20 mg by [facility] (MAG-OX) 15:20: mouth Medical 400 mg 59 daily. Center tablet metoclopram 2017-0 Yes 10mg Q.[id number] Take [address] [facility] gadiel HCl 7-20 [id number] by mouth [facility] (REGLAN) 10 15:20: [...] l 59 Center hydrALAZINE 2017-0 Yes 100mg Q.[id number] Take [address] [facility] [address] (APRESOLINE 7-20 [id number] mg by L ukes ) 100 MG 15:20: 3D mouth 3 Medica l tablet 59 (three) Center times daily. magnesium 2017-0 Yes 400mg QD Take [address] [facility] [address] oxide 7-20 mg by [facility] (MAG-OX) 15:20: mouth Medical 400 mg 59 daily. Center tablet metoclopram 2017-0 Yes 10mg Q.67038409 Take [address] [facility] gadiel HCl 7-20 [id number] by mouth 3 [facility] (REGLAN) 10 15:20: [...] l 59 Center hydrALAZINE 2017-0 Yes 100mg Q.[id number] Take [address] [facility] (APRESOLINE 7-20 [id number] mg by L ukes ) 100 MG 15:20: 3D mouth 3 Medica l tablet 59 (three) Center times daily. magnesium 2017-0 Yes 400mg QD Take [address] [facility] [address] oxide 7-20 mg by [facility] (MAG-OX) 15:20: mouth Medical 400 mg 59 daily. Center tablet metoclopram 2017-0 Yes 10mg Q.[id number] Take [address] [facility] gadiel HCl 7-20 [id number] by mouth 3 [facility] (REGLAN) 10 15:20: [...] tab, PO, l Tablet 15:07: Daily, # Forman 00 30 tab, 0 Refill(s), Pharmacy: [facility] Furosemide Yes 40 mg = 1 Me moria 40 MG Oral 2-09 tab, PO, l Tablet 15:07: Daily, # Forman 00 30 tab, 0 Refill(s), Pharmacy: [facility] Furosemide Yes 40 mg = 1 Me moria 40 MG Oral 2-09 tab, PO, l Tablet 15:07: Daily, # Forman 00 30 tab, 0 Refill(s), Pharmacy: [facility] Furosemide Yes 40 mg = 1 Me moria 40 MG Oral 2-09 tab, PO, l Tablet 15:07: Daily, # Vin 00 30 tab, 0 Refill(s), Pharmacy: [facility] Furosemide Yes 40 mg = 1 Me moria 40 MG Oral 2-09 tab, PO, l Tablet 15:07: Daily, # Vin 00 30 tab, 0 Refill(s), Pharmacy: [facility] Bumex 2017-0 No 0.5 mg, Memoria 2- Route: PO, l 15:00: Drug form: Forman 00 TAB, Daily, Dosing Weight 92.273, kg, Start date: 07/30/16 9:00:00 CHEF, Duration: 30 day, Stop date: 08/28/16 9:00:00 CHEF Bumex 2017-0 No 0.5 mg, Memoria 2- Route: PO, l 15:00: Drug form: Vin 00 TAB, Daily, Dosing Weight 92.273, kg, Start date: 07/30/16 9:00:00 CHEF, Duration: 30 day, Stop date: 08/28/16 9:00:00 CHEF Bumex 2017-0 No 0.5 mg, Memoria 2- Route: PO, l 15:00: Drug form: Vin 00 TAB, Daily, Dosing Weight 92.273, kg, Start date: 07/30/16 9:00:00 CHEF, Duration: 30 day, Stop date: 08/28/16 9:00:00 CHEF Bumex 2017-0 No 0.5 mg, Memoria 2-09 Route: PO, l 15:00: Drug form: Forman 00 TAB, Daily, Dosing Weight 92.273, kg, Start date: 07/30/16 9:00:00 CHEF, Duration: 30 day, Stop date: 08/28/16 9:00:00 CHEF Bumex 2017-0 No 0.5 mg, Memoria 2-09 Route: PO, l 15:00: Drug form: Forman 00 TAB, Daily, Dosing Weight 92.273, kg, Start date: 07/30/16 9:00:00 CHEF, Duration: 30 day, Stop date: 08/28/16 9:00:00 CHEF Lasix No Notes: Memoria 2-08 (Same as: l 20:05: Lasix) May Forman 00 cause GI upset. Give with food or milk. Lasix No Notes: Memoria 2-08 (Same as: l 20:05: Lasix) May Forman 00 cause GI upset. Give with food or milk. Lasix No Notes: Memoria 2-08 (Same as: l 20:05: Lasix) May Forman 00 cause GI upset. Give with food [...] Vin ) Push over 5 minutes Hydralazine 2017-0 No Notes: Mendoza janice 2-08 (Same as: l 06:05: Apresoline Vin 00 ) Push over 5 minutes Hydralazine 2017-0 No Notes: Mendoza janice 2-08 (Same as: l 06:05: Apresoline Forman 00 ) Push over 5 minutes sodium 2017-0 No 1,000 mL, Memori a chloride 2-05 Rate: 125 l 0.9% 1000 18:26: ml/hr, Jake n ml INJ 00 Infuse 1,000 mL over: 8 hr, Route: IV, Dosing Weight 92.273 kg, Total Volume: 1,000, Start date: 07/26/16 12:26:00 CHEF, Duration: 30 day, Stop date: 08/25/16 12:25:00 CHEF sodium 2017-0 No 1,000 mL, Memori a chloride 2-05 Rate: 125 l 0.9% 1000 18:26: ml/hr, Jake n ml INJ 00 Infuse 1,000 mL over: 8 hr, Route: IV, Dosing Weight 92.273 kg, Total Volume: 1,000, Start date: 07/26/16 12:26:00 CHEF, Duration: 30 day, Stop date: 08/25/16 12:25:00 CHEF sodium 2017-0 No 1,000 mL, Memori a chloride 2-05 Rate: 125 l 0.9% 1000 18:26: ml/hr, Jake n ml INJ 00 Infuse 1,000 mL over: 8 hr, Route: IV, Dosing Weight 92.273 kg, Total Volume: 1,000, Start date: 07/26/16 12:26:00 CHEF, Duration: 30 day, Stop date: 08/25/16 12:25:00 CHEF sodium 2017-0 No 1,000 mL, Memori a chloride 2-05 Rate: 125 l 0.9% 1000 18:26: ml/hr, Jake n ml INJ 00 Infuse 1,000 mL over: 8 hr, Route: IV, Dosing Weight 92.273 kg, Total Volume: 1,000, Start date: 07/26/16 12:26:00 CHEF, Duration: 30 day, Stop date: 08/25/16 12:25:00 CHEF sodium 2017-0 No 1,000 mL, Memori a chloride 2-05 Rate: 125 l 0.9% 1000 18:26: ml/hr, Jake n ml INJ 00 Infuse 1,000 mL over: 8 hr, Route: IV, Dosing Weight 92.273 kg, Total Volume: 1,000, Start date: 07/26/16 12:26:00 CHEF, Duration: 30 day, Stop date: 08/25/16 12:25:00 CHEF Sodium 2017-0 No 500 mL, Memoria Chloride 2-05 500 ml/hr, l 0.154 13:30: Infuse Forman MEQ/ML 00 Over: 1 Injectable hr, Route: Solution IV, 500, Drug form: INJ, ONCE, Priority: STAT, Dosing Weight 92.273 kg, Start date: 07/26/16 7:30:00 CHEF, Duration: 1 doses or times, Stop date: 07/26/16 7:30:00 CHEF Sodium 2017-0 No 500 mL, Memoria Chloride 2-05 500 ml/hr, l 0.154 13:30: Infuse Forman MEQ/ML 00 Over: 1 Injectable hr, Route: Solution IV, 500, Drug form: INJ, ONCE, Priority: STAT, Dosing Weight 92.273 kg, Start date: 07/26/16 7:30:00 CHEF, Duration: 1 doses or times, Stop date: 07/26/16 7:30:00 CHEF Sodium 2017-0 No 500 mL, Memoria Chloride 2-05 500 ml/hr, l 0.154 13:30: Infuse Vin MEQ/ML 00 Over: 1 Injectable hr, Route: Solution IV, 500, Drug form: INJ, ONCE, Priority: STAT, Dosing Weight 92.273 kg, Start date: 07/26/16 7:30:00 CHEF, Duration: 1 doses or times, Stop date: 07/26/16 7:30:00 CHEF Sodium 2017-0 No 500 mL, Memoria Chloride 2-05 500 ml/hr, l 0.154 13:30: Infuse Forman MEQ/ML 00 Over: 1 Injectable hr, Route: Solution IV, 500, Drug form: INJ, ONCE, Priority: STAT, Dosing Weight 92.273 kg, Start date: 07/26/16 7:30:00 CHEF, Duration: 1 doses or times, Stop date: 07/26/16 7:30:00 CHEF Sodium 2017-0 No 500 mL, Memoria Chloride 2-05 500 ml/hr, l 0.154 13:30: Infuse Vin MEQ/ML 00 Over: 1 Injectable hr, Route: Solution IV, 500, Drug form: INJ, ONCE, Priority: STAT, Dosing Weight 92.273 kg, Start date: 07/26/16 7:30:00 CHEF, Duration: 1 doses or times, Stop date: 07/26/16 7:30:00 CHEF Insulin 2016-0 No 60 units) Mendoza janice regular 2- WASTE: F/P l 08:39: - Black; E Vin 00 - Municipal Trash Bin Stable for 28 days at room temperatur e Expires in days from ____Date Insulin 2017-0 No 60 units) Mendoza janice regular 2- WASTE: F/P l 08:39: - Black; E Forman 00 - Municipal Trash Bin Stable for [...] WASTE: F/P l 08:39: - Black; E Forman 00 - Municipal Trash Bin Stable for 28 days at room temperatur e Expires in days from ____Date Insulin 2017-0 No 60 units) Mendoza janice regular 2- WASTE: F/P l 08:39: - Black; E Forman 00 - Municipal Trash Bin Stable for [...] Roll in l Human 07:31: palms of Forman 00 hands gently; Do not shake vigorously [...] Roll in l Human 05:42: palms of Forman 00 hands gently; Do not shake vigorously . (Same as: NovoLOG) "single patient use only" WASTE: F/P - Black; E - Municipal Trash Bin Stable for 28 days at room temperatur e. Expires in days from ____Date Insulin, No Notes: Memoria Aspart, 2-04 Roll in l Human 05:42: palms of Forman 00 hands gently; Do not shake vigorously [...] Roll in l Human 05:42: palms of Forman 00 hands gently; Do not shake vigorously . (Same as: NovoLOG) "single patient use only" WASTE: F/P - Black; E - Municipal Trash Bin Stable for 28 days at room temperatur e. Expires in days from ____Date Insulin, No Notes: Memoria Aspart, 2-04 Roll in l Human 03:28: palms of Forman 00 hands gently; Do not shake vigorously . (Same as: NovoLOG) "single patient use only" WASTE: F/P - Black; E - Municipal Trash Bin Stable for 28 days at room temperatur e. Expires in days from ____Date Insulin, No Notes: Memoria Aspart, 2-04 Roll in l Human 03:28: palms of Forman 00 hands gently; Do not shake vigorously [...] Roll in l Human 03:28: palms of Forman 00 hands gently; Do not shake vigorously . (Same as: NovoLOG) "single patient use only" WASTE: F/P - Black; E - Municipal Trash Bin Stable for 28 days at room temperatur e. Expires in days from ____Date Insulin, No Notes: Memoria Aspart, 2-04 Roll in l Human 03:28: palms of Forman 00 hands gently; Do not shake vigorously [...] sodium 2-04 (Same as: l 03:00: Depakote Forman 00 ER) Once daily dosing; indicated for [...] sodium 2-04 (Same as: l 03:00: Depakote Forman 00 ER) Once daily dosing; indicated for migraines. Divalproex sodium extended-r elease tab. Do not chew or crush. "Do Not Crush" Lasix No Notes: Memoria 2-03 (Same as: l 22:00: Lasix) Vin 00 MEDICATION WASTE Product Size: 40 mg Product Wasted: ___ mg Lasix No Notes: Memoria 2- (Same as: l 22:00: Lasix) Vin 00 MEDICATION WASTE Product Size: 40 mg Product Wasted: ___ mg Lasix No Notes: Memoria 2- (Same as: l 22:00: Lasix) Forman 00 MEDICATION WASTE Product Size: 40 mg Product Wasted: ___ mg Lasix No Notes: Memoria 2- (Same as: l 22:00: Lasix) Forman 00 MEDICATION WASTE Product Size: 40 mg Product Wasted: ___ mg Lasix No Notes: Memoria 2 (Same as: l 22:00: Lasix) Vin 00 MEDICATION WASTE Product Size: 40 mg Product Wasted: ___ mg Tylenol No Notes: Max Mendoza janice 2-03 acetaminop l 21:52: hen = Forman 00 4000mg/day (4 gm/day). (Same as: Tylenol) Tylenol No Notes: Max Mendoza janice 2-03 acetaminop l 21:52: hen = Forman 00 4000mg/day (4 gm/day). (Same as: Tylenol) [...] oria 2-03 tab, l 15:00: Route: PO, Forman 00 Drug form: ERTAB, Daily, Dosing Weight 92.273, kg, Start date: 07/24/16 9:00:00 CHEF, Duration: 30 day, Stop date: 08/22/16 9:00:00 CHEF 24 HR No Notes: Memoria Divalproex 2-03 [...] Memoria 2-03 (Same as: l 15:00: Lasix) Forman MEDICATION WASTE Product Size: 40 mg Product Wasted: ___ mg Zoloft No Notes: Memoria 2-03 (Same as: l 15:00: Zoloft) Vin Protonix No Notes: Memoria 2-03 Tablet l 15:00: should not be chewed or crushed. (Same as: Protonix) metoprolol No 100 mg, 2 Me moria extended 2-03 tab, l release 15:00: Route: PO, Herm naeem Drug form: ERTAB, Daily, Start date: 07/24/16 9:00:00 CHEF, Duration: 30 day, Stop date: 08/22/16 9:00:00 CHEF Insulin No Notes: Memoria Glargine 2-03 Same [...] Weight 92.273, kg, Start date: 07/24/16 9:00:00 CHEF, Duration: 30 day, Stop date: 08/22/16 9:00:00 CHEF 24 HR No Notes: Memoria Divalproex 2-03 (Same as: l Sodium 500 15:00: Depakote Her braden MG Extended 00 ER) Release Tablet [Depakote] gabapentin No Notes: Memor ia 300 MG Oral 2-03 (Same as: l Capsule 15:00: Neurontin) Herm naeem Aspirin 81 No Notes: Memor ia MG Chewable 2-03 Take with l Tablet 15:00: food. Forman 00 Lasix No Notes: Memoria 2-03 (Same [...] form: ERTAB, Daily, Start date: 07/24/16 9:00:00 CHEF, Duration: 30 day, Stop date: 08/22/16 9:00:00 CHEF Insulin No Notes: Memoria Glargine 2-03 Same [...] Weight 92.273, kg, Start date: 07/24/16 9:00:00 CHEF, Duration: 30 day, Stop date: 08/22/16 9:00:00 CHEF 24 HR No Notes: Memoria Divalproex 2-03 [...] Memoria 2-03 (Same as: l 15:00: Zoloft) Forman Protonix No Notes: Memoria 2-03 Tablet l 15:00: should not be chewed or crushed. (Same as: Protonix) metoprolol No 100 mg, 2 Me moria extended 2-03 tab, l release 15:00: Route: PO, Herm naeem Drug form: ERTAB, Daily, Start date: 07/24/16 9:00:00 CHEF, Duration: 30 day, Stop date: 08/22/16 9:00:00 CHEF Insulin No Notes: Memoria Glargine 2-03 Same [...] oria 2-03 tab, l 15:00: Route: PO, Forman Drug form: ERTAB, Daily, Dosing Weight 92.273, kg, Start date: 07/24/16 9:00:00 CHEF, Duration: 30 day, Stop date: 08/22/16 9:00:00 CHEF 24 HR No Notes: Memoria Divalproex 2-03 [...] Memoria 2-03 (Same as: l 15:00: Zoloft) Forman Protonix No Notes: Memoria 2-03 Tablet l 15:00: should not be chewed or crushed. (Same as: Protonix) metoprolol No 100 mg, 2 Me moria extended 2-03 tab, l release 15:00: Route: PO, Herm naeem Drug form: ERTAB, Daily, Start date: 07/24/16 9:00:00 CHEF, Duration: 30 day, Stop date: 08/22/16 9:00:00 CHEF Insulin No Notes: Memoria Glargine 2-03 Same [...] Weight 92.273, kg, Start date: 07/24/16 9:00:00 CHEF, Duration: 30 day, Stop date: 08/22/16 9:00:00 CHEF 24 HR No Notes: Memoria Divalproex 2-03 [...] Memoria 2-03 (Same as: l 15:00: Lasix) Forman 00 MEDICATION WASTE Product Size: 40 mg Product Wasted: ___ mg Zoloft No Notes: Memoria 2-03 (Same as: l 15:00: Zoloft) Protonix No Notes: Memoria 2-03 Tablet l 15:00: should not be chewed or crushed. (Same as: Protonix) metoprolol No 100 mg, 2 Me moria extended 2-03 tab, l release 15:00: Route: PO, Herm Drug form: ERTAB, Daily, Start date: 07/24/16 9:00:00 CHEF, Duration: 30 day, Stop date: 08/22/16 9:00:00 CHEF Insulin No Notes: Memoria Glargine 2-03 Same [...] janice 2-03 (Same as: l 14:50: Zofran) Forman MEDICATION WASTE Product Size: 4 mg Product Wasted: ___ mg Morphine No Notes: Memoria 2-03 (Same l 14:50: as:MORPhin Forman 00 e Sulfate) Ondansetron No Notes: Mendoza janice 2-03 (Same as: l 14:50: Zofran) Forman 00 MEDICATION WASTE Product Size: 4 mg Product Wasted: ___ mg Morphine No Notes: Memoria 2-03 (Same l 14:50: as:MORPhin Vin 00 e Sulfate) Ondansetron No Notes: Mendoza janice 2-03 (Same as: l 14:50: Zofran) Vin 00 MEDICATION WASTE Product Size: 4 mg Product Wasted: ___ mg Morphine 2016- No Notes: Memoria 2-03 (Same l 14:50: as:MORPhin Vin 00 e Sulfate) Ondansetron No Notes: Mendoza janice 2-03 (Same as: l 14:50: Zofran) Vin 00 MEDICATION WASTE Product Size: 4 mg Product Wasted: ___ mg Morphine No Notes: Memoria 2-03 (Same l 14:50: as:MORPhin Vin 00 e Sulfate) Ondansetron No Notes: Mendoza janice 2-03 (Same as: l 14:50: Zofran) Forman 00 MEDICATION WASTE Product Size: 4 mg [...] Roll in l Human 13:30: palms of Forman 00 hands gently; Do not shake vigorously [...] Memoria 2-03 Same as l 11:28: Dilaudid Forman 00 Dilaudid No Notes: Memoria 2-03 Same as l 11:28: Dilaudid Forman 00 Dilaudid No Notes: Memoria 2-03 Same as l 11:28: Dilaudid Forman 00 Dilaudid No Notes: Memoria 2-03 Same as l 11:28: Dilaudid Forman 00 Insulin, No Notes: Memoria Aspart, 2-03 Roll in l Human 08:40: palms of Forman 00 hands gently; Do not shake vigorously [...] Blood Glucose Results, Start date: 07/24/16 2:40:00 CHEF, Duration: 30 day, Stop date: 08/23/16 2:39:00 CHEF Dextrose 2017-0 No 25 gm, 50 Mendoza janice 50% Syringe 2-03 mL, Route: l 08:40: IVP, Drug Forman 00 Form: INJ, Dosing Weight 92.273, kg, PRN, PRN Blood Glucose Results, Start date: 07/24/16 2:40:00 CHEF, Duration: 30 day, Stop date: 08/23/16 2:39:00 CHEF Insulin, 2017-0 No Notes: Memoria Aspart, 2-03 Roll in l Human 08:40: palms of Forman 00 hands gently; Do not shake vigorously [...] Blood Glucose Results, Start date: 07/24/16 2:40:00 CHEF, Duration: 30 day, Stop date: 08/23/16 2:39:00 CHEF Dextrose 2017-0 No 25 gm, 50 Mendoza janice 50% Syringe 2-03 mL, Route: l 08:40: IVP, Drug Vin 00 Form: INJ, Dosing Weight 92.273, kg, PRN, PRN Blood Glucose Results, Start date: 07/24/16 2:40:00 CHEF, Duration: 30 day, Stop date: 08/23/16 2:39:00 CHEF Insulin, 2017-0 No Notes: Memoria Aspart, 2-03 [...] Blood Glucose Results, Start date: 07/24/16 2:40:00 CHEF, Duration: 30 day, Stop date: 08/23/16 2:39:00 CHEF Dextrose 2017-0 No 25 gm, 50 Mendoza janice 50% Syringe 2-03 mL, Route: l 08:40: IVP, Drug 00 Form: INJ, Dosing Weight 92.273, kg, PRN, PRN Blood Glucose Results, Start date: 07/24/16 2:40:00 CHEF, Duration: 30 day, Stop date: 08/23/16 2:39:00 CHEF Insulin, 2017-0 No Notes: Memoria Aspart, 2-03 Roll in l Human 08:40: palms of Forman 00 hands gently; Do not shake vigorously [...] Blood Glucose Results, Start date: 07/24/16 2:40:00 CHEF, Duration: 30 day, Stop date: 08/23/16 2:39:00 CHEF Dextrose 2017-0 No 25 gm, 50 Mendoza janice 50% Syringe 2-03 mL, Route: l 08:40: IVP, Drug Forman 00 Form: INJ, Dosing Weight 92.273, kg, PRN, PRN Blood Glucose Results, Start date: 07/24/16 2:40:00 CHEF, Duration: 30 day, Stop date: 08/23/16 2:39:00 CHEF Insulin, No Notes: Memoria Aspart, 2-03 Roll [...] Blood Glucose Results, Start date: 07/24/16 2:40:00 CHEF, Duration: 30 day, Stop date: 08/23/16 2:39:00 CHEF Dextrose No 25 gm, 50 Mendoza janice 50% Syringe 2-03 mL, Route: l 08:40: IVP, Drug Forman 00 Form: INJ, Dosing Weight 92.273, kg, PRN, PRN Blood Glucose Results, Start date: 07/24/16 2:40:00 CHEF, Duration: 30 day, Stop date: 08/23/16 2:39:00 CHEF Docusate No Notes: Memoria 2-03 (Same as: l 07:20: Colace) Forman 00 (Do Not Crush) Ondansetron No Notes: [...] Memoria 2- (Same as: l 07:20: Colace) Forman 00 (Do Not Crush) Ondansetron 0 No Notes: Mendoza janice 2- (Same as: l 07:20: Zofran) Forman 00 MEDICATION WASTE Product Size: 4 mg Product Wasted: ___ mg Docusate 2016-0 No Notes: Memoria 2- (Same as: l 07:20: Colace) Vin 00 (Do Not Crush) Ondansetron 2016-0 No Notes: Mendoza janice 2- (Same as: l 07:20: Zofran) Forman 00 MEDICATION WASTE Product Size: 4 mg Product Wasted: ___ mg Docusate 2016-0 No Notes: Memoria 2- (Same as: l 07:20: Colace) Vin 00 (Do Not Crush) Ondansetron 0 No Notes: Mendoza janice 2- (Same as: l 07:20: Zofran) Vin 00 MEDICATION WASTE Product Size: 4 mg Product Wasted: ___ mg Lasix 0 No Notes: Memoria 2- (Same as: l 06:01: Lasix) Forman 00 MEDICATION WASTE Product Size: 40 mg [...] Memori a 0.833 MG/ML 2- (Same as: l / 04:09: Duoneb) Forman Ipratropium 00 [place] 0.167 MG/ML Inhalant Solution [DuoNeb] Albuterol No Notes: Memori a 0.833 MG/ML 2-03 (Same as: l / 04:09: Duoneb) Vin Ipratropium 00 [place] 0.167 MG/ML Inhalant Solution [DuoNeb] Albuterol No Notes: Memori a 0.833 MG/ML 2-03 (Same as: l / 04:09: Duoneb) Forman Ipratropium 00 [place] 0.167 MG/ML Inhalant Solution [DuoNeb] Albuterol No Notes: Memori a 0.833 MG/ML 2- (Same as: l / 04:09: Duoneb) Forman Ipratropium 00 [place] 0.167 MG/ML Inhalant Solution [DuoNeb] Albuterol No Notes: Memori a 0.833 MG/ML 2- (Same as: l / 04:09: Duoneb) Vin Ipratropium 00 [place] 0.167 MG/ML Inhalant Solution [DuoNeb] Furosemide 2015-06 Yes 80 mg = 2 Me moria 40 MG Oral 2-26 tab, PO, l Tablet 16:34: BID, # 120 Nidia nn 00 tab, 0 Refill(s) atorvastati 2015-06 Yes 40 mg = 1 M emoria n 40 mg 2-26 tab, PO, l oral tablet 16:34: Bedtime, # Forman 00 30 tab, 0 Refill(s) Insulin 2015-06 [...] INHALATION l 0.09 16:34: , PRN, PRN Forman MG/ACTUAT 00 as needed Metered for Dose wheezing, Inhaler use as needed for shortness of breath or wheezing, # 8 gm, 0 Refill(s) Aspirin 81 2015-06 Yes 81 mg = 1 Me moria MG Chewable 2-26 tab, PO, l Tablet 16:34: Daily, # Forman 00 30 tab, 0 Refill(s) Hydroxyzine 2015-06 Yes 50 mg = 1 M emoria Hydrochlori 2-26 cap, PO, l de 50 MG 16:34: TID, X 30 Herm naeem Oral 00 day, # 90 Capsule cap, 0 Refill(s) losartan 25 2015-06 Yes 25 mg = 1 M emoria mg oral 2-26 tab, PO, l tablet 16:34: Daily, # Forman 00 30 tab, 0 Refill(s) Furosemide 2015-06 [...] tab, PO, l Tablet 16:34: Daily, # Forman 00 30 tab, 0 Refill(s) Hydroxyzine 2015-06 [...] tab, PO, l tablet 16:34: Daily, # Forman 00 30 tab, 0 Refill(s) Furosemide 2015-06 [...] tab, PO, l tablet 16:34: Daily, # Forman 00 30 tab, 0 Refill(s) Furosemide 2015-06 [...] INHALATION l 0.09 16:34: , PRN, PRN Forman MG/ACTUAT 00 as needed Metered for Dose wheezing, Inhaler use as needed for shortness of breath or wheezing, # 8 gm, 0 Refill(s) Aspirin 81 2015-06 Yes 81 mg = 1 Me moria MG Chewable 2-26 tab, PO, l Tablet 16:34: Daily, # Forman 00 30 tab, 0 Refill(s) Hydroxyzine 2015-06 [...] 2-26 (Same as: l 15:00: Lasix) May Forman 00 cause GI upset. Give with food or milk. ix 2015-06 No Notes: Memoria 2-26 (Same as: l 15:00: Lasix) May Forman 00 cause GI upset. Give with food or milk. ix 2015-06 No Notes: Memoria 2-26 (Same as: l 15:00: Lasix) May Forman 00 cause GI upset. Give with food or milk. ix 2015-06 No Notes: Memoria 2-26 (Same as: l 15:00: Lasix) October cause GI upset. Give with food or milk. Lasix 2015-06 No Notes: Memoria 2-26 (Same as: l 15:00: Lasix) October cause GI upset. Give with food or milk. Magnesium 2015-06 No Notes: Memori a Oxide 2-24 (Same as: l 13:36: Mag-Ox Forman 400) Magnesium oxide 513rw=792g g elemental magnesium Dose=____m g magnesium oxide (___mg elemental magnesium) Magnesium 2015-06 No Notes: Memori a Oxide 2-24 (Same as: l 13:36: Mag-Ox Forman 400) Magnesium oxide 706ex=309j g elemental magnesium Dose=____m g magnesium oxide (___mg elemental magnesium) Magnesium 2015-06 No Notes: Memori a Oxide 2-24 (Same as: l 13:36: [facility]-Ox Vin 400) Magnesium oxide 657cd=070y g elemental magnesium Dose=____m g magnesium oxide (___mg elemental magnesium) Magnesium 2015-06 No Notes: Memori a Oxide 2-24 (Same as: l 13:36: Mag-Ox Forman 400) Magnesium oxide 861rg=176r g elemental magnesium Dose=____m g magnesium oxide (___mg elemental magnesium) Magnesium 2015-06 No Notes: Memori a Oxide 2-24 (Same as: l 13:36: Mag-Ox Vin 400) Magnesium oxide 282wg=481h g elemental magnesium Dose=____m g magnesium oxide (___mg elemental magnesium) Magnesium 2015-06 No Notes: Memori a Oxide 2-24 (Same as: l 09:47: Mag-Ox Forman 400) Magnesium oxide 884ox=386f g elemental magnesium Dose=____m g magnesium oxide (___mg elemental magnesium) Magnesium 2015-06 No Notes: Memori a Oxide 2-24 (Same as: l 09:47: Mag-Ox Forman 400) Magnesium oxide 643vp=064d g elemental magnesium Dose=____m g magnesium oxide (___mg elemental magnesium) Magnesium 2015-06 No Notes: Memori a Oxide 2-24 (Same as: l 09:47: [facility]-Ox Forman 400) Magnesium oxide 953wu=932b g elemental magnesium Dose=____m g magnesium oxide (___mg elemental magnesium) Magnesium 2015-06 No Notes: Memori a Oxide 2-24 (Same as: l 09:47: [facility]-Ox Forman 400) Magnesium oxide 616hl=235k g elemental magnesium Dose=____m g magnesium oxide (___mg elemental magnesium) Magnesium 2015-06 No Notes: Memori a Oxide 2-24 (Same as: l :47: [facility]-Ox Vin 400) Magnesium oxide 644bk=974j g elemental magnesium Dose=____m g magnesium oxide [...] 2-24 (Same as: l tablet 01:08: Apresoline [place] nn ) May interfere w/enteral feedings Take [...] XL 2-24 (Same as: l 00:00: Wellbutrin Forman 00 XL) "Do Not Crush" Norvasc 2015-06 No Notes: Memoria 2-24 (Same as: l 00:00: Norvasc) Forman 00 Wellbutrin 2015-06 No Notes: Memor ia XL 2-24 (Same as: l 00:00: Wellbutrin Vin 00 XL) "Do Not Crush" Norvasc 2015-06 No Notes: Memoria 2-24 (Same as: l 00:00: Norvasc) Vin 00 Wellbutrin 2015-06 No Notes: Memor ia XL 2-24 (Same as: l 00:00: Wellbutrin Vin 00 XL) "Do Not Crush" Norvasc 2015-06 No Notes: Memoria 2-24 (Same as: l 00:00: Norvasc) Forman 00 Wellbutrin 2015-06 No Notes: Memor ia XL 2-24 (Same as: l 00:00: Wellbutrin Forman 00 XL) "Do Not Crush" Norvasc 2015-06 [...] tab, PO, l tablet 15:35: Daily, 0 Forman 00 Refill(s) amLODIPine 2015-06 No 10 mg = 1 Me moria 10 mg oral 2-23 tab, PO, l tablet 15:35: Daily, 0 Forman 00 Refill(s) pravastatin 2015-06 No 40 mg [...] tab, PO, l tablet 15:35: Daily, 0 Forman 00 Refill(s) pravastatin 2015-06 No 40 mg = 1 M emoria 40 mg oral 2-23 tab, PO, l tablet 15:35: Daily, 0 Vin 00 Refill(s) amLODIPine 2015-06 No 10 mg = 1 Me moria 10 mg oral 2-23 tab, PO, l tablet 15:35: Daily, 0 Forman 00 Refill(s) pravastatin 2015-06 No 40 mg [...] AND 1 l Capsule 15:27: CAP AT Forman 00 BEDTIME, 0 Refill(s) Insulin, 2015-06 No [...] tab, PO, l Tablet 15:27: Daily, 0 Forman [Zoloft] 00 Refill(s) pantoprazol 2015-06 Yes 40 [...] AND 1 l Capsule 15:27: CAP AT Forman 00 BEDTIME, 0 Refill(s) Insulin, 2015-06 No [...] tab, PO, l Tablet 15:27: Daily, 0 Forman [Zoloft] 00 Refill(s) pantoprazol 2015-06 Yes 40 mg = 1 M emoria e 40 MG 2-23 tab, PO, l Enteric 15:27: Daily, 0 Jake n Coated 00 Refill(s) Tablet [Protonix] gabapentin 2015-06 Yes 1 CAP PO Mem oria 300 MG Oral 2-23 BID AND 1 l Capsule 15:27: CAP AT Forman 00 BEDTIME, 0 Refill(s) Insulin, 2015-06 No [...] Weight 86.364, kg, Start date: 06/11/16 9:00:00 CHEF, Duration: 30 day, Stop date: 07/10/16 9:00:00 CHEF Insulin 2015-06 No Notes: Memoria Glargine 2-22 [...] Weight 86.364, kg, Start date: 06/11/16 9:00:00 CHEF, Duration: 30 day, Stop date: 07/10/16 9:00:00 CHEF Insulin 2015-06 No Notes: Memoria Glargine 2-22 [...] Weight 86.364, kg, Start date: 06/11/16 9:00:00 CHEF, Duration: 30 day, Stop date: 07/10/16 9:00:00 CHEF Insulin 2015-06 No Notes: Memoria Glargine 2-22 [...] Weight 86.364, kg, Start date: 06/11/16 9:00:00 CHEF, Duration: 30 day, Stop date: 07/10/16 9:00:00 CHEF Insulin 2015-06 No Notes: Memoria Glargine 2-22 [...] Weight 86.364, kg, Start date: 06/11/16 9:00:00 CHEF, Duration: 30 day, Stop date: 07/10/16 9:00:00 CHEF Insulin 2015-06 No Notes: Memoria Glargine 2-22 Same as: l 100 UNT/ML 15:00: Lantus) Do H ermann Injectable 00 not hold Solution insulin [Lantus] without contacting prescriber WASTE: F/P - Black; E - Municipal Trash Bin Zoloft 2015-06 No Notes: Memoria 2-22 (Same as: l 15:00: Zoloft) Forman 00 Insulin, 2015-06 No Notes: Memoria Aspart, [...] Roll in l Human 12:55: palms of Forman 00 hands gently; Do not shake vigorously . (Same as: NovoLOG) "single patient use only" WASTE: F/P - Black; E - Municipal Trash Bin Stable for 28 days at room temperatur e. Expires in days from ____Date Insulin, 2015-06 No Notes: Memoria Aspart, 2-22 Roll in l Human 12:55: palms of Forman 00 hands gently; Do not shake vigorously . (Same as: NovoLOG) "single patient use only" WASTE: F/P - Black; E - [employer] Trash Bin Stable for 28 days at room temperatur e. Expires in days from ____Date Insulin, 2015-06 No Notes: Memoria Aspart, 2-22 Roll in l Human 12:55: palms of Forman 00 hands gently; Do not shake vigorously . (Same as: NovoLOG) "single patient use only" WASTE: F/P - Black; E - [employer] Trash Bin Stable for 28 days at room temperatur e. Expires in days from ____Date Insulin, 2015-06 No Notes: Memoria Aspart, 2-22 Roll in l Human 12:55: palms of Forman 00 hands gently; Do not shake vigorously . (Same as: NovoLOG) "single patient use only" WASTE: F/P - Black; E - Municipal Trash Bin Stable for 28 days at room temperatur e. Expires in days from ____Date heparin 2015-06 No Notes: Memoria sodium, 2-22 porcine l porcine 06:00: heparin Forman 2500 UNT/ML 00 Injectable Solution heparin 2015-06 [...] sodium, 2-22 porcine l porcine 06:00: heparin Forman 2500 UNT/ML 00 Injectable Solution Albuterol 2015-06 No Notes: Memori a 0.833 MG/ML 08-12 (Same as: l / 03:00: Duoneb) Vin Ipratropium 00 [place] 0.167 MG/ML Inhalant Solution [DuoNeb] gabapentin 2015-06 No 300 mg, Mendoza janice 300 MG Oral 08-12 Route: PO, l Capsule 03:00: Drug form: Herm naeem 00 CAP, Q12H, Dosing Weight 86.364, kg, (CrCl 30 - 59 ml/min), Start date: 06/10/16 21:00:00 CHEF, Duration: 30 day, Stop date: 07/10/16 9:00:00 CHEF divalproex 2015-06 No Notes: Memor ia sodium 2-22 (Same as: l 03:00: Depakote Vin 00 ER) Once daily dosing; indicated for migraines. Divalproex sodium extended-r elease tab. Do not chew or crush. "Do Not Crush" Losartan 2015-06 No Notes: Memoria 2-22 (Same as: l 03:00: Cozaar) Vin 00 Albuterol 2015-06 No Notes: Memori a 0.833 MG/ML 2-22 (Same as: l 03:00: Duoneb) Forman Ipratropium 00 [place] 0.167 MG/ML Inhalant Solution [DuoNeb] gabapentin 2015-06 No 300 mg, Mendoza janice 300 MG Oral 2-22 Route: PO, l Capsule 03:00: Drug form: Herm naeem 00 CAP, Q12H, Dosing Weight 86.364, kg, (CrCl 30 - 59 ml/min), Start date: 06/10/16 21:00:00 CHEF, Duration: 30 day, Stop date: 07/10/16 9:00:00 CHEF divalproex 2015-06 No Notes: Memor ia sodium 2-22 (Same as: l 03:00: Depakote Vin 00 ER) Once daily dosing; indicated for migraines. Divalproex sodium extended-r elease tab. Do not chew or crush. "Do Not Crush" Losartan 2015-06 No Notes: Memoria 2-22 (Same as: l 03:00: Cozaar) Albuterol 2015-06 No Notes: Memori a 0.833 MG/ML 2-22 (Same as: l 03:00: Duoneb) Vin Ipratropium 00 [place] 0.167 MG/ML Inhalant Solution [DuoNeb] gabapentin 2015-06 No 300 mg, Mendoza janice 300 MG Oral 2-22 Route: PO, l Capsule 03:00: Drug form: Herm naeem 00 CAP, Q12H, Dosing Weight 86.364, kg, (CrCl 30 - 59 ml/min), Start date: 06/10/16 21:00:00 CHEF, Duration: 30 day, Stop date: 07/10/16 9:00:00 CHEF divalproex 2015-06 No Notes: Memor ia sodium 2-22 (Same as: l 03:00: Depakote Forman 00 ER) Once daily dosing; indicated for migraines. Divalproex sodium extended-r elease tab. Do not chew or crush. "Do Not Crush" Losartan 2015-06 No Notes: Memoria 2-22 (Same as: l 03:00: Cozaar) Vin 00 Albuterol 2015-06 No Notes: Memori a 0.833 MG/ML 2-22 (Same as: l 03:00: Duoneb) Vin Ipratropium 00 [place] 0.167 MG/ML Inhalant Solution [DuoNeb] gabapentin 2015-06 No 300 mg, Mendoza janice 300 MG Oral 2-22 Route: PO, l Capsule 03:00: Drug form: Herm naeem 00 CAP, Q12H, Dosing Weight 86.364, kg, (CrCl 30 - 59 ml/min), Start date: 06/10/16 21:00:00 CHEF, Duration: 30 day, Stop date: 07/10/16 9:00:00 CHEF divalproex 2015-06 No Notes: Memor ia sodium 2-22 (Same as: l 03:00: Depakote Vin 00 ER) Once daily dosing; indicated for migraines. Divalproex sodium extended-r elease tab. Do not chew or crush. "Do Not Crush" Losartan 2015-06 No Notes: Memoria 2-22 (Same as: l 03:00: Cozaar) Forman 00 Albuterol 2015-06 No Notes: Memori a 0.833 MG/ML 2-22 (Same as: l 03:00: Duoneb) Forman Ipratropium 00 [place] 0.167 MG/ML Inhalant Solution [DuoNeb] gabapentin 2015-06 No 300 mg, Mendoza janice 300 MG Oral 2-22 Route: PO, l Capsule 03:00: Drug form: Herm naeem 00 CAP, Q12H, Dosing Weight 86.364, kg, (CrCl 30 - 59 ml/min), Start date: 06/10/16 21:00:00 CHEF, Duration: 30 day, Stop date: 07/10/16 9:00:00 CHEF divalproex 2015-06 No Notes: Memor ia sodium 2-22 (Same as: l 03:00: Depakote Forman 00 ER) Once daily dosing; indicated for [...] Blood Glucose Results, Start date: 06/10/16 18:50:00 CHEF, Duration: 30 day, Stop date: 07/10/16 18:49:00 CHEF Glucagon 2015-06 No 1 mg, Memoria 2-22 Route: IM, l 00:50: Drug form: Vin 00 PDR/INJ, PRN, Dosing Weight 86.364, kg, PRN Blood Glucose Results, Start date: 06/10/16 18:50:00 CHEF, Duration: 30 day, Stop date: 07/10/16 18:49:00 CHEF Insulin, 2015-06 No Notes: Memoria Aspart, 2-22 [...] Syringe 2-22 25 mL, l 00:50: Route: Forman 00 IVP, Drug Form: INJ, Dosing Weight 86.364, kg, PRN, PRN Blood Glucose Results, Start date: 06/10/16 18:50:00 CHEF, Duration: 30 day, Stop date: 07/10/16 18:49:00 CHEF Glucagon 2015-06 No 1 mg, Memoria 2-22 Route: IM, l 00:50: Drug form: Forman 00 PDR/INJ, PRN, Dosing Weight 86.364, kg, PRN Blood Glucose Results, Start date: 06/10/16 18:50:00 CHEF, Duration: 30 day, Stop date: 07/10/16 18:49:00 CHEF Insulin, 2015-06 No Notes: Memoria Aspart, 2-22 [...] Blood Glucose Results, Start date: 06/10/16 18:50:00 CHEF, Duration: 30 day, Stop date: 07/10/16 18:49:00 CHEF Glucagon 2015-06 No 1 mg, Memoria 2-22 Route: IM, l 00:50: Drug form: Forman 00 PDR/INJ, PRN, Dosing Weight 86.364, kg, PRN Blood Glucose Results, Start date: 06/10/16 18:50:00 CHEF, Duration: 30 day, Stop date: 07/10/16 18:49:00 CHEF Insulin, 2015-06 No Notes: Memoria Aspart, 2-22 [...] Blood Glucose Results, Start date: 06/10/16 18:50:00 CHEF, Duration: 30 day, Stop date: 07/10/16 18:49:00 CHEF Glucagon 2015-06 No 1 mg, Memoria 2-22 Route: IM, l 00:50: Drug form: Vin 00 PDR/INJ, PRN, Dosing Weight 86.364, kg, PRN Blood Glucose Results, Start date: 06/10/16 18:50:00 CHEF, Duration: 30 day, Stop date: 07/10/16 18:49:00 CHEF Insulin, 2015-06 No Notes: Memoria Aspart, 2-22 Roll in l Human 00:50: palms of Vin 00 hands gently; Do not shake vigorously . (Same as: NovoLOG) "single patient use only" WASTE: F/P - Black; E - [employer] Trash Bin Stable for 28 days at room temperatur e. Expires in days from ____Date Dextrose 2015-06 No 12.5 gm, Memor ia 50% Syringe 2-22 25 mL, l 00:50: Route: Forman 00 IVP, Drug Form: INJ, Dosing Weight 86.364, kg, PRN, PRN Blood Glucose Results, Start date: 06/10/16 18:50:00 CHEF, Duration: 30 day, Stop date: 07/10/16 18:49:00 CHEF Glucagon 2015-06 No 1 mg, Memoria 2-22 Route: IM, l 00:50: Drug form: Vin 00 PDR/INJ, PRN, Dosing Weight 86.364, kg, PRN Blood Glucose Results, Start date: 06/10/16 18:50:00 CHEF, Duration: 30 day, Stop date: 07/10/16 18:49:00 CHEF Hydralazine 2015-06 No Notes: Mendoza janice 2-22 (Same as: l 00:36: Apresoline Vin 00 ) Push over 5 minutes Hydralazine 2015-06 No Notes: Mendoza janice 2-22 (Same as: l 00:36: Apresoline Vin 00 ) Push over 5 minutes Hydralazine 2015-06 No Notes: Mendoza janice 2-22 (Same as: l 00:36: Apresoline Forman 00 ) Push over 5 minutes Hydralazine 2015-06 No Notes: Mendoza jaince 2-22 (Same as: l 00:36: Apresoline Forman 00 ) Push over 5 minutes Hydralazine 2015-06 No Notes: Mendoza janice 2-22 (Same as: l 00:36: Apresoline Forman 00 ) Push over 5 minutes Hydralazine 2015-06 No Notes: Mendoza janice 2-22 (Same as: l 00:34: Apresoline Forman 00 ) May interfere w/enteral feedings Take With Food Hydralazine 2015-06 No Notes: Mendoza janice 2-22 (Same as: l 00:34: Apresoline Forman 00 ) May interfere w/enteral feedings Take [...] l release 00:08: Toprol XL) Herm naeem May split tab, but do not crush. Hydralazine 2015-06 No 10 mg, Mendoza janice 2-22 Route: IV, l 00:06: ONCE, Dosing Weight 86.364, kg, Start date: 06/10/16 18:06:00 CHEF, Stop date: 06/10/16 18:06:00 CHEF Hydralazine 2015-06 No 10 mg, Mendoza janice 2-22 Route: IV, l 00:06: ONCE, Dosing Weight 86.364, kg, Start date: 06/10/16 18:06:00 CHEF, Stop date: 06/10/16 18:06:00 CHEF Hydralazine 2015-06 No 10 mg, Mendoza janice 2-22 Route: IV, l 00:06: ONCE, Dosing Weight 86.364, kg, Start date: 06/10/16 18:06:00 CHEF, Stop date: 06/10/16 18:06:00 CHEF Hydralazine 2015-06 No 10 mg, Mendoza janice 2-22 Route: IV, l 00:06: ONCE, Dosing Weight 86.364, kg, Start date: 06/10/16 18:06:00 CHEF, Stop date: 06/10/16 18:06:00 CHEF Hydralazine 2015-06 No 10 mg, Mendoza janice 2-22 Route: IV, l 00:06: ONCE, Dosing Weight 86.364, kg, Start date: 06/10/16 18:06:00 CHEF, Stop date: 06/10/16 18:06:00 CHEF hydrOXYzine 2015-06 No Notes: Mendoza janice pamoate [...] Weight 86.364, kg, Start date: 06/10/16 16:32:00 CHEF, Stop date: 06/10/16 16:32:00 CHEF Furosemide 2015-06 No 60 mg, Memor ia 2-21 Route: l 22:32: IVP, Drug Vin 00 form: INJ, ONCE, Dosing Weight 86.364, kg, Start date: 06/10/16 16:32:00 CHEF, Stop date: 06/10/16 16:32:00 CHEF Furosemide 2015-06 No 60 mg, Memor ia 2-21 Route: l 22:32: IVP, Drug Forman 00 form: INJ, ONCE, Dosing Weight 86.364, kg, Start date: 06/10/16 16:32:00 CHEF, Stop date: 06/10/16 16:32:00 CHEF Furosemide 2015-06 No 60 mg, Memor ia 2-21 Route: l 22:32: IVP, Drug Forman 00 form: INJ, ONCE, Dosing Weight 86.364, kg, Start date: 06/10/16 16:32:00 CHEF, Stop date: 06/10/16 16:32:00 CHEF Furosemide 2015-06 No 60 mg, Memor ia 2-21 Route: l 22:32: IVP, Drug Vin 00 form: INJ, ONCE, Dosing Weight 86.364, kg, Start date: 06/10/16 16:32:00 CHEF, Stop date: 06/10/16 16:32:00 CHEF Lasix 2015-06 No Notes: Memoria - (Same as: 17:: Lasix) MEDICATION WASTE Product Size: 40 mg Product Wasted: _0__ mg Albuterol 2015-06 No Notes: Memori a 0.833 MG/ML 08-11 (Same as: 17:22: Duoneb) Forman Ipratropium 00 [place] 0.167 MG/ML Inhalant Solution [DuoNeb] Lasix 2015-06 No Notes: Memoria 2- (Same as: l 17:22: Lasix) Forman 00 MEDICATION WASTE Product Size: 40 mg Product Wasted: _0__ mg Albuterol 2015-06 No Notes: Memori a 0.833 MG/ML 08-11 (Same as: :22: Duoneb) Vin Ipratropium 00 [place] 0.167 MG/ML Inhalant Solution [DuoNeb] Lasix 2015-06 No Notes: Memoria 2- (Same as: l 17:22: Lasix) Vin 00 MEDICATION WASTE Product Size: 40 mg Product Wasted: _0__ mg Albuterol 2015-06 No Notes: Memori a 0.833 MG/ML 08-11 (Same as: :: Duoneb) Vin Ipratropium 00 [place] 0.167 MG/ML Inhalant Solution [DuoNeb] Lasix 2015-06 No Notes: Memoria - (Same as: l 17:22: Lasix) Forman 00 MEDICATION WASTE Product Size: 40 mg Product Wasted: _0__ mg Albuterol 2015-06 No Notes: Memori a 0.833 MG/ML 08-11 (Same as: :: Duoneb) Vin Ipratropium 00 [place] 0.167 MG/ML Inhalant Solution [DuoNeb] Lasix 2015-06 No Notes: Memoria 08-11 (Same as: l 17:22: Lasix) Vin 00 MEDICATION WASTE Product Size: 40 mg Product Wasted: _0__ mg Albuterol 2015-06 No Notes: Memori a 0.833 MG/ML 08-11 (Same as: :22: Duoneb) Vin Ipratropium 00 [place] 0.167 MG/ML Inhalant Solution [DuoNeb] Promethazin Yes 25 mg = 1 M emoria e 1-06 supp, MS, l Hydrochlori 14:45: Q6H, Jake gonzalez de 25 MG 00 Nausea & Rectal Vomiting, Suppository # 9 supp, [Phenergan] 0 Refill(s) Promethazin Yes 25 mg = 1 M emoria e 1-06 supp, MS, l Hydrochlori 14:45: Q6H, Jake n de 25 MG 00 Nausea & Rectal Vomiting, Suppository # 9 supp, [Phenergan] 0 Refill(s) Promethazin Yes 25 mg = 1 M emoria e 1-06 supp, MS, l Hydrochlori 14:45: Q6H, Jake n de 25 MG 00 Nausea & Rectal Vomiting, Suppository # 9 supp, [Phenergan] 0 Refill(s) Promethazin Yes 25 mg = 1 M emoria e 1-06 supp, MS, l Hydrochlori 14:45: Q6H, Jake n de 25 MG 00 Nausea & Rectal Vomiting, Suppository # 9 supp, [Phenergan] 0 Refill(s) Promethazin Yes 25 mg = 1 M emoria e 1-06 supp, MS, l Hydrochlori 14:45: Q6H, Jake n de 25 MG 00 Nausea & Rectal Vomiting, Suppository # 9 supp, [Phenergan] 0 Refill(s) Ondansetron Yes Special Mem oria 4 MG -06 Instructio l Disintegrat 14:25: ns: Jake gonzalez ing Tablet 00 Dissolve [Zofran] tab under tongue Ondansetron Yes Special Mem oria 4 MG -06 Instructio l Disintegrat 14:25: ns: Jake gonzalez [...] -06 Instructio l Disintegrat 14:25: ns: Jake gonzalez [...] Nidia nn Coated 00 Refill(s) Tablet Hydromorpho 2015-0 No Notes: Mendoza janice ne 1-06 Same as: l 11:48: Dilaudid Forman Hydromorpho No Notes: Mendoza janice ne 1-06 Same as: l 11:48: Dilaudid Forman Hydromorpho 0 No Notes: Mendoza janice ne 06-26 Same as: l 11:48: Dilaudid Vin Hydromorpho No Notes: Mendoza janice ne 06-26 Same as: l 11:48: Dilaudid Forman Hydromorpho No Notes: Mendoza janice ne 06 Same as: l 11:48: Dilaudid Vin hydrOXYzine 2014-0 Yes 0 Memori a pamoate 1-06 Refill(s) l 11:18: Vin 00 Dicyclomine 2014-0 Yes 0 Memori a 1-06 Refill(s) l 11:18: Forman 00 hydrOXYzine 2014-0 Yes 0 Memori a pamoate 1-06 Refill(s) l 11:18: Vin 00 Dicyclomine 2015-0 Yes 0 Memori a 1-06 Refill(s) l 11:18: Forman 00 hydrOXYzine 2014-0 Yes 0 Memori a pamoate 1-06 Refill(s) l 11:18: Forman 00 Dicyclomine 2014-0 Yes 0 Memori a 1-06 Refill(s) l 11:18: Forman 00 hydrOXYzine 2014-0 Yes 0 Memori a pamoate 1-06 Refill(s) l 11:18: Forman 00 Dicyclomine 2014-0 Yes 0 Memori a 1-06 Refill(s) l 11:18: Vin 00 hydrOXYzine 2014-0 Yes 0 Memori a pamoate 1-06 Refill(s) l 11:18: Vin 00 Dicyclomine 2015-0 Yes 0 Memori a 1-06 Refill(s) l 11:18: Forman 00 Ondansetron 2014-0 Yes 0 Memori a 1-06 Refill(s) l 11:17: Vin 00 Benztropine 2015-0 Yes 0 Memori a 1-06 Refill(s) l 11:17: Vin 00 Clonidine 2014-0 Yes 0 Memoria 1-06 Refill(s) [...] Chloride 1-06 1,000 l 0.154 10:56: ml/hr, Forman MEQ/ML 00 Infuse Injectable Over: 2 Solution hr, Route: IV, 2,000, Drug form: INJ, ONCE, Priority: STAT, Dosing Weight 75 kg, Start date: 06/26/14 4:56:00, Duration: 1 doses or times, Stop date: 06/26/14 4:56:00 Lorazepam 2014-0 No Notes: Memori a 1-06 (Same as: l 10:56: Ativan) Sodium 0 No 2,000 mL, Memori a Chloride 1-06 1,000 l 0.154 10:56: ml/hr, Forman MEQ/ML 00 Infuse Injectable Over: 2 Solution hr, Route: IV, 2,000, Drug form: INJ, ONCE, Priority: STAT, Dosing Weight 75 kg, Start date: 06/26/14 4:56:00, Duration: 1 doses or times, Stop date: 06/26/14 4:56:00 Lorazepam No Notes: Memori a 1-06 (Same as: l 10:56: Ativan) Sodium No 2,000 mL, Memori a Chloride 1-06 1,000 l 0.154 10:56: ml/hr, Forman MEQ/ML 00 Infuse Injectable Over: 2 Solution hr, Route: IV, 2,000, Drug form: INJ, ONCE, Priority: STAT, Dosing Weight 75 kg, Start date: 06/26/14 4:56:00, Duration: 1 doses or times, Stop date: 06/26/14 4:56:00 Lorazepam No Notes: Memori a 1- (Same as: l 10:56: Ativan) Sodium No 2,000 mL, Memori a Chloride - 1,000 l 0.154 10:56: ml/hr, Vin MEQ/ML [...] Reglan) Metoclopram No Notes: Mendoza janice gadiel 1- (Same as: l 10:55: Reglan) Metoclopram No Notes: Mendoza janice gadiel 1-06 (Same as: l 10:55: Reglan) Metoclopram No Notes: Mendoza janice gadiel 1-06 (Same as: l 10:55: Reglan) Metoclopram No Notes: Mendoza janice gadiel 1- (Same as: l 10:55: Reglan) Zofran ODT 2012- Yes Matthew Gary 4 mg, 1 Memoria [...] tab under tongue Zofran ODT 2012-06 Yes Amtthew Gary 4 mg, 1 Memoria 4 mg [...] Rate: 125 l 0.9% IV 04:10: ml/hr, Forman 1,000 mL 00 Infuse over: 8 hr, [...] Rate: 125 l 0.9% IV 04:10: ml/hr, Forman 1,000 mL 00 Infuse over: 8 hr, [...] date: 05/14/13 23:09:00 Saline 2012-06 No Matthew Gray 5 mL, Memor ia Flush 0.9% 0-26 [...] Rate: 125 l 0.9% IV 04:10: ml/hr, Forman 1,000 mL 00 Infuse over: 8 hr, Route: IV, Dosing Weight 63.636 kg, Total Volume: 1,000, Start date: 04/14/13 23:10:00, Duration: 30 day, Stop date: 05/14/13 23:09:00 Saline 2012-06 No Matthew Gary 5 mL, Memor ia Flush 0.9% 0-26 Marry Route: l 04:10: IVP, Drug Vin 00 Form: INJ, Dosing Weight 63.636, kg, [...] Rate: 125 l 0.9% IV 04:10: ml/hr, Forman 1,000 mL 00 Infuse over: 8 hr, [...] 9-25 Marx Route: l 01:15: IVP, ONCE, Forman 00 Dosing Weight 58.636, kg, Priority: STAT, [...] 9-25 Marx Route: l 01:15: IVP, ONCE, Forman 00 Dosing Weight 58.636, kg, Priority: STAT, [...] Marx Rate: 500 l 0.9% 23:45: ml/hr, Forman (Bolus) IV 00 Infuse 500 mL over: [...] 9-24 Marx Route: l 22:19: IVP, ONCE, Forman 00 Dosing Weight 58.636, kg, Priority: STAT, Start date: 03/14/12 17:19:00, Stop date: 03/14/12 17:19:00 morphine 2012-0 No Hung Murillo 5 mg, Me moria Sulfate 9-24 Marx Route: l 22:19: IVP, ONCE, Dosing Weight 58.636, kg, Priority: STAT, Start date: 03/14/12 17:19:00, Stop date: 03/14/12 17:19:00 pantoprazol 0 No Hung Murillo 40 mg, Memoria e [...] 9-24 Marx Rate: l 0.9% 22:19: 1,000 Forman (Bolus) IV 00 ml/hr, 500 mL Infuse [...] 9-24 Marx Route: l 22:19: IVP, ONCE, Forman 00 Dosing Weight 58.636, kg, Priority: STAT, [...] 9-24 Marx Route: l 22:19: IVP, ONCE, Forman 00 Dosing Weight 58.636, kg, Priority: STAT, [...] 9-24 Marx Rate: l 0.9% 22:19: 1,000 Forman (Bolus) IV 00 ml/hr, 500 mL Infuse over: 0.5 hr, Route: IV, kg, Total Volume: 500, Bolus dose, Priority: STAT, Start date: 03/14/12 17:19:00, Duration: 1 doses or times, Stop date: 03/14/12 17:48:00 ondansetron 2011-0 No Hung Murillo 4 mg, Memoria 9-24 Amrx Route: l 22:19: IVP, ONCE, Forman 00 Dosing Weight 58.636, kg, Priority: STAT, Start date: 03/14/12 17:19:00, Stop date: 03/14/12 17:19:00 morphine 2011-0 No Hung Murillo 5 mg, Me moria Sulfate 9-24 Marx Route: l 22:19: IVP, ONCE, Vin 00 Dosing Weight 58.636, kg, Priority: STAT, Start date: 03/14/12 17:19:00, Stop date: 03/14/12 17:19:00 pantoprazol No Yordan Ferraraang 40 mg, Memoria e 03-14 Marx Route: l 22:19: IVP, ONCE, Vin [...] insulin No Blake 10 unit, Mem oria isophane[employer] 6-11 Deangelo 0.1 mL, l H 02:00: Brisa Route: Vin SUB-Q, Drug form: INJ, Bedtime, Start date: 11/29/11 21:00:00, Duration: 30 day, Stop date: 12/28/11 21:00:00 Insulin No Blake 8 unit, Mendoza janice regular 6-11 Deangelo 0.08 mL, l 02:00: Brisa Route: Forman SUB-Q, Drug form: SOLN, Bedtime, Start date: [...] insulin No Blake 10 unit, Mem oria isophane[employer] 6-11 Deangelo 0.1 mL, l H 02:00: Brisa Route: Forman SUB-Q, Drug form: INJ, Bedtime, Start date: [...] 2011-0 No Blake 10 unit, Mem oria isophane-[employer] MEMBER 6-11 Deangelo 0.1 mL, l H 02:00: Brisa Route: Forman SUB-Q, Drug form: INJ, Bedtime, Start date: 11/29/11 21:00:00, Duration: 30 day, Stop date: 12/28/11 21:00:00 Insulin 2011-0 No Blake 8 unit, Mendoza janice regular 6-11 Deangelo 0.08 mL, l 02:00: Brisa Route: Forman 00 SUB-Q, Drug form: SOLN, Bedtime, Start [...] 2011-0 No Blake 10 unit, Mem oria isophane-[employer] MEMBER 6-11 Deangelo 0.1 mL, l H 02:00: Route: Vin SUB-Q, Drug form: INJ, Bedtime, Start date: 11/29/11 21:00:00, Duration: 30 day, Stop date: 12/28/11 21:00:00 Insulin 2011-0 No Blake 8 unit, Mendoza janice regular 6-11 Deangelo 0.08 mL, l 02:00: Route: Forman SUB-Q, Drug form: SOLN, Bedtime, Start date: [...] 2011-0 No Blake 10 unit, Mem oria isophane-[employer]BER 6-11 Deangelo 0.1 mL, l H 02:00: Route: Vin SUB-Q, Drug form: INJ, Bedtime, Start date: 11/29/11 21:00:00, Duration: 30 day, Stop date: 12/28/11 21:00:00 Insulin 2011-0 No Blake 8 unit, Mendoza janice regular 6-11 Deangelo 0.08 mL, l 02:00: Route: Forman 00 SUB-Q, Drug form: SOLN, Bedtime, Start [...] 6-10 Omidvar Route: l 21:33: IVP, ONCE, Forman 00 Start date: 11/29/11 16:33:00, Stop date: 11/29/11 16:33:00 morphine 2011-0 No Bismark 2 mg, Memori a Sulfate 6-10 Omidvar Route: l 21:33: IVP, ONCE, Forman 00 Start date: 11/29/11 16:33:00, Stop date: [...] Omidvar mL, Route: l 21:32: IVP, Drug Forman 00 form: INJ, ONCE, Start date: 11/29/11 [...] 6-10 Omidvar tab, l 19:16: Route: PO, Forman 00 Drug form: TAB, Q4H, PRN Pain, Start date: 11/29/11 14:16:00, Duration: 30 day, Stop date: 12/29/11 14:15:00 Tylenol 2011-0 No [place] 650 mg, 2 Mem oria 6-10 Omidvar tab, l 19:16: Route: PO, Forman 00 Drug form: TAB, Q4H, PRN Pain, [...] 6-10 Omidvar tab, l 19:16: Route: PO, Forman 00 Drug form: TAB, Q4H, PRN Pain, Start date: 11/29/11 14:16:00, Duration: 30 day, Stop date: 12/29/11 14:15:00 Tylenol 2011-0 No [place] 650 mg, 2 Mem oria 6-10 Omidvar tab, l 19:16: Route: PO, Vin Drug form: TAB, Q4H, PRN Pain, Start date: 11/29/11 14:16:00, Duration: 30 day, Stop date: 12/29/11 14:15:00 insulin 2011-0 No Blake 14 unit, Mem oria isophane-[employer]BER 6-10 Deangelo 0.14 mL, l H 14:00: [...] cap, l 14:00: Route: PO, Her braden Drug form: ERCAP, [...] M emoria 6-10 Deangelo tab, l 14:00: Rbisa Route: PO, Her braden 00 Drug form: TAB, Daily, Start date: 11/29/11 9:00:00, Duration: 30 day, Stop date: 12/28/11 9:00:00 insulin 2011-0 No Blake 14 unit, Mem oria isophane-[employer]BER 6-10 Deangelo 0.14 mL, l H 14:00: Brisa Route: Forman 00 SUB-Q, Drug form: INJ, Daily, Start [...] 2011-0 No Blake 14 unit, Mem oria isophane-[employer]BER 6-10 Deangelo 0.14 mL, l H 14:00: [...] 2011-0 No Blake 14 unit, Mem oria isophane-[employer]BER 6-10 Deangelo 0.14 mL, l H 14:00: Brisa Route: Vin 00 SUB-Q, Drug form: INJ, Daily, Start date: 11/29/11 9:00:00, Duration: 30 day, Stop date: 12/28/11 9:00:00 Insulin 2011-0 No Blake 10 unit, Mem oria regular 6-10 Deangelo 0.1 mL, l 14:00: Brisa Route: Forman 00 SUB-Q, Drug form: SOLN, Daily, Start [...] 2011-0 No Blake 14 unit, Mem oria isophane-[employer]BER 6-10 Deangelo 0.14 mL, l H 14:00: Brisa Route: Forman 00 SUB-Q, Drug form: INJ, Daily, Start [...] Deangelo 0.1 mL, l 06:30: Brisa Route: Forman 00 SUB-Q, Drug form: SOLN, TID-Before Meals, [...] 6-10 Deangelo 0.1 mL, l 06:30: Route: Forman 00 SUB-Q, Drug form: SOLN, TID-Before Meals, [...] Deangelo 0.1 mL, l 06:30: Brisa Route: Forman 00 SUB-Q, Drug form: SOLN, TID-Before Meals, [...] 30 day, Stop date: 12/29/11 1:29:00 insulin No Blake 10 unit, Mem oria aspart 6-10 Deangelo 0.1 mL, l 06:30: Brisa Route: Forman 00 SUB-Q, Drug form: SOLN, TID-Before Meals, [...] l IV 1,000 mL 06:29: Brisa ml/hr, Forman 00 Infuse over: 5 hr, Route: IV, [...] l IV 1,000 mL 06:29: Brisa ml/hr, Forman 00 Infuse over: 5 hr, Route: IV, [...] janice 6-10 Deangelo Route: IV, l 06:28: [facility] Drug form: Her braden 00 INJ, ONCE, [...] janice 6-10 Deangelo Route: IV, l 06:28: [facility] Drug form: Her braden 00 INJ, ONCE, [...] 2011-0 No Blake 10 mg, 2 Mendoza jaince 6-10 Deangelo mL, Route: l 06:28: Brisa IVP, Drug Herm naeem 00 form: INJ, Q6H, Priority: STAT, Start date: 11/29/11 1:28:00, Duration: 30 day, Stop date: 12/29/11 0:00:00 Protonix 2011-0 No Blake 40 mg, Mendoza janice 6-10 Deangelo Route: IV, l 06:28: [facility] Drug form: braden 00 INJ, ONCE, Priority: [...] janice 6-10 Deangelo Route: IV, l 06:28: [facility] Drug form: braden 00 INJ, ONCE, Priority: STAT, Start date: 11/29/11 1:28:00, Stop date: 11/29/11 1:28:00 metoclopram 2012-0 No Nikki 10 mg, 2 Memoria gadiel 6-10 Sarah mL, Route: l 04:01: Brown IVP, Drug Forman 00 form: INJ, ONCE, Priority: STAT, Start date: 11/28/11 23:01:00, Stop date: 11/28/11 23:01:00 metoclopram 2012-0 No Nikki 10 mg, 2 Memoria gadiel 6-10 Sarah mL, Route: l 04:01: Brown IVP, Drug Forman 00 form: INJ, ONCE, Priority: STAT, Start [...] mL, Route: l 04:01: Brown IVP, Drug Forman 00 form: INJ, ONCE, Priority: STAT, Start [...] mL, Route: l 02:31: Brown IVP, Drug Forman 00 form: INJ, ONCE, Priority: STAT, Start [...] mL, Route: l 02:31: Brown IVP, Drug Forman 00 form: INJ, ONCE, Priority: STAT, Start [...] mL, Route: l 02:31: Brown IVP, Drug Forman 00 form: INJ, ONCE, Priority: STAT, Start date: 11/28/11 21:31:00, Stop date: 11/28/11 21:31:00 NS (Bolus) No Arif Domenico 1,000 mL, Memoria IV 1,000 mL 11-27 Rate: l 22:48: 1,000 Forman 00 ml/hr, Infuse over: 1 hr, Route: IV, Dosing Weight 57.273 kg, Total Volume: 1,000, Start date: 11/28/11 17:48:00, Duration: 30 day, Stop date: 12/28/11 17:47:00 NS (Bolus) No Arif Domenico 1,000 mL, Memoria IV 1,000 mL 11-27 Rate: l 22:48: 1,000 Forman 00 ml/hr, Infuse over: 1 hr, Route: [...] 1,000 mL 11-27 Rate: l 22:48: 1,000 Forman 00 ml/hr, Infuse over: 1 hr, Route: [...] 1,000 mL 6 Rate: l 20:36: 1,000 Forman 00 ml/hr, Infuse over: 1 hr, Route: [...] 6-09 mL, Route: l 20:35: IVP, Drug Forman 00 form: INJ, ONCE, Priority: STAT, Start date: 11/28/11 15:35:00, Stop date: 11/28/11 15:35:00 Ativan No Arif Domenico 2 mg, 1 Mem oria 6-09 mL, Route: l 20:35: IVP, Drug Vin 00 form: INJ, ONCE, Priority: STAT, Start date: 11/28/11 15:35:00, Stop date: 11/28/11 15:35:00 Ativan No Arif Domenico 2 mg, 1 Mem oria 6-09 mL, Route: l 20:35: IVP, Drug Forman 00 form: INJ, ONCE, Priority: STAT, Start date: 11/28/11 15:35:00, Stop date: 11/28/11 15:35:00 Ativan No Arif Domenico 2 mg, 1 Mem oria 6-09 mL, Route: l 20:35: IVP, Drug Forman 00 form: INJ, ONCE, Priority: STAT, Start date: 11/28/11 15:35:00, Stop date: 11/28/11 15:35:00 Ativan No Arif Domenico 2 mg, 1 Mem oria 6-09 mL, Route: l 20:35: IVP, Drug Vin 00 form: INJ, ONCE, Priority: STAT, Start date: 11/28/11 15:35:00, Stop date: 11/28/11 15:35:00 Novolin R Yes Hughes-Ajson 8 unit, emoria 100 3-30 [place] SUB-Q, l units/mL 17:47: Dawson Q12H, 2 He rmann injectable 42 Pu vial, solution Substituti on Allowed, SOLN Novolin R Yes Hughes-Jason 8 unit, emoria 100 3-30 [place] SUB-Q, l units/mL 17:47: Dawson Q12H, 2 He rmann injectable 42 Pu vial, solution Substituti on Allowed, SOLN Novolin R Yes Hughes-Jason 8 unit, emoria 100 3-30 [place] SUB-Q, l units/mL 17:47: Dawson Q12H, 2 He rmann injectable 42 Pu vial, solution Substituti on Allowed, SOLN Novolin R Yes Hughes-Jason 8 unit, emoria 100 3-30 [place] SUB-Q, l units/mL 17:47: Dawson Q12H, 2 He rmann injectable 42 Pu vial, solution Substituti on Allowed, SOLN Novolin R Yes Hughes-Jason 8 unit, emoria 100 3-30 [place] SUB-Q, l units/mL 17:47: Dawson Q12H, 2 He rmann injectable 42 Pu vial, solution Substituti on Allowed, SOLN Novolin N Yes Hughes-Jason 10 unit, Memoria 100 3-30 [place] SUB-Q, l units/mL 17:46: Dawson Bedtime, H ermann subcutaneou 27 Pu 10 ml, s injection Substituti on Allowed, SUSP Novolin N Yes Hughes-Jason 10 unit, Memoria 100 3-30 [place] SUB-Q, l units/mL 17:46: Dawson Bedtime, H ermann subcutaneou 27 Pu 10 ml, s injection Substituti on Allowed, SUSP Novolin N Yes Hughes-Jason 10 unit, Memoria 100 3-30 [place] SUB-Q, l units/mL 17:46: Dawson Bedtime, H ermann subcutaneou 27 Pu 10 ml, s injection Substituti on Allowed, SUSP Novolin N Yes Hughes-Jason 10 unit, Memoria 100 3-30 [place] SUB-Q, l units/mL 17:46: Dawson Bedtime, H ermann subcutaneou 27 Pu 10 ml, s injection Substituti on Allowed, SUSP Novolin N Yes Hughes-Jason 10 unit, Memoria 100 3-30 [place] SUB-Q, l units/mL 17:46: Dawson Bedtime, H ermann subcutaneou 27 Pu 10 ml, s injection Substituti on Allowed, SUSP Novolin N Yes Hughes-Jason 14 unit, Memoria 100 3-30 [place] SUB-Q, l units/mL 17:44: [place] QAM, 1 Her braden subcutaneou 37 Pu vial, s injection Substituti on Allowed, SUSP Novolin N Yes Hughes-Jason 14 unit, Memoria 100 3-30 [place] SUB-Q, l units/mL 17:44: Dawson QAM, 1 Her braden subcutaneou 37 Pu vial, s injection Substituti on Allowed, SUSP Novolin N Yes Hughes-Jason 14 unit, Memoria 100 3-30 [place] SUB-Q, l units/mL 17:44: Dawson QAM, 1 Her braden subcutaneou 37 Pu vial, s injection Substituti on Allowed, SUSP Novolin N Yes Hughes-Jason 14 unit, Memoria 100 3-30 [place] SUB-Q, l units/mL 17:44: Dawson QAM, 1 Her braden subcutaneou 37 Pu vial, s injection Substituti on Allowed, SUSP Novolin N Yes Hughes-Jason 14 unit, Memoria 100 3-30 [place] SUB-Q, l units/mL 17:44: Dawson QAM, 1 Her braden subcutaneou 37 Pu vial, s injection Substituti on Allowed, SUSP magnesium No Hughes-Jason 400 mg, 1 Memoria oxide 3-30 [place] tab, l 14:55: Dawson Route: PO, Her braden 00 Pu Drug form: TAB, ONCE, Priority: STAT, Start date: 09/18/11 9:55:00, Stop date: 09/18/11 9:55:00 magnesium 2012-0 No Hughes-Jason 400 mg, 1 Memoria oxide 3-30 [place] tab, l 14:55: Dawson Route: PO, Her braden 00 Pu Drug form: TAB, ONCE, Priority: STAT, Start date: 09/18/11 9:55:00, Stop date: 09/18/11 9:55:00 magnesium 2011-0 No Hughes-Jason 400 mg, 1 Memoria oxide 3-30 [place] tab, l 14:55: Dawson Route: PO, Her braden 00 Pu Drug form: TAB, ONCE, Priority: STAT, Start date: 09/18/11 9:55:00, Stop date: 09/18/11 9:55:00 magnesium 2011-0 No Hughes-Jason 400 mg, 1 Memoria oxide 3-30 [place] tab, l 14:55: Dawson Route: PO, Her braden 00 Pu Drug form: TAB, ONCE, Priority: STAT, Start date: 09/18/11 9:55:00, Stop date: 09/18/11 9:55:00 magnesium 2011-0 No Hughes-Jason 400 mg, 1 Memoria oxide 3-30 [place] tab, l 14:55: Dawson Route: PO, Her braden 00 Pu Drug form: TAB, ONCE, Priority: STAT, Start date: 09/18/11 9:55:00, Stop date: 09/18/11 9:55:00 Insulin 2011-0 No Hughes-Jason 8 unit, Mem oria regular 3-30 [place] 0.08 mL, l 14:22: Dawson Route: Forman Pu SUB-Q, Drug form: SOLN, ONCE, Priority: STAT, Start date: 09/18/11 9:22:00, Stop date: 09/18/11 9:22:00 Insulin 2012-0 No Huhges-Jason 8 unit, Mem oria regular 3-30 [place] 0.08 mL, l 14:22: Dawson Route: Vin Pu SUB-Q, Drug form: SOLN, ONCE, Priority: STAT, Start date: 09/18/11 9:22:00, Stop date: 09/18/11 9:22:00 Insulin 2012-0 No Hughes-Jason 8 unit, Mem oria regular 3-30 [place] 0.08 mL, l 14:22: Dawson Route: Vin Pu SUB-Q, Drug form: SOLN, ONCE, Priority: STAT, Start date: 09/18/11 9:22:00, Stop date: 09/18/11 9:22:00 Insulin 2012-0 No Hughes-Jason 8 unit, Mem oria regular 3-30 [place] 0.08 mL, l 14:22: Dawson Route: Vin Pu SUB-Q, Drug form: SOLN, ONCE, Priority: STAT, Start date: 09/18/11 9:22:00, Stop date: 09/18/11 9:22:00 Insulin 2012-0 No Hughes-Jason 8 unit, Mem oria regular 3-30 [place] 0.08 mL, l 14:22: Dawson Route: Forman Pu SUB-Q, Drug form: SOLN, ONCE, Priority: STAT, Start date: 09/18/11 9:22:00, Stop date: 09/18/11 9:22:00 Lactated 2012-0 No Hughes-Jason 1,000 mL, Memoria Ringers 3-30 [place] Rate: l (Bolus) IV 14:16: Dawson 1,000 He rmann 1,000 mL 00 Pu ml/hr, Infuse over: 1 hr, Route: IV, Total Volume: 1,000, Bolus Dose, Priority: STAT, Start date: 09/18/11 9:16:00, Duration: 1 doses or times, Stop date: 09/18/11 10:15:00 Lactated 2012-0 No Hughes-Jason 1,000 mL, Memoria Ringers 3-30 [place] Rate: l (Bolus) IV 14:16: Dawson 1,000 He rmann 1,000 mL 00 Pu ml/hr, Infuse over: 1 hr, Route: IV, Total Volume: 1,000, Bolus Dose, Priority: STAT, Start date: 09/18/11 9:16:00, Duration: 1 doses or times, Stop date: 09/18/11 10:15:00 Lactated 2012-0 No Hughes-Jason 1,000 mL, Memoria Ringers 3-30 [place] Rate: l (Bolus) IV 14:16: Dawson 1,000 He rmann 1,000 mL 00 Pu ml/hr, Infuse over: 1 hr, Route: IV, Total Volume: 1,000, Bolus Dose, Priority: STAT, Start date: 09/18/11 9:16:00, Duration: 1 doses or times, Stop date: 09/18/11 10:15:00 Lactated 2012-0 No Hughes-Jason 1,000 mL, Memoria Ringers 3-30 [place] Rate: l (Bolus) IV 14:16: Dawson 1,000 He rmann 1,000 mL 00 Pu ml/hr, Infuse over: 1 hr, Route: IV, Total Volume: 1,000, Bolus Dose, Priority: STAT, Start date: 09/18/11 9:16:00, Duration: 1 doses or times, Stop date: 09/18/11 10:15:00 Lactated 2012-0 No Hughes-Jason 1,000 mL, Memoria Ringers 3-30 [place] Rate: l (Bolus) IV 14:16: Dawson 1,000 He rmann 1,000 mL 00 Pu ml/hr, Infuse over: 1 hr, Route: IV, Total Volume: 1,000, Bolus Dose, Priority: STAT, Start date: 09/18/11 9:16:00, Duration: 1 doses or times, Stop date: 09/18/11 10:15:00 Sodium 2012-0 No Hughes-Jason 1,000 mL, Me moria Chloride 3-30 [place] Rate: l 0.9% 14:06: Dawson 1,000 Vin (Bolus) IV 00 Pu ml/hr, 1000 mL Infuse over: 1 hr, Route: IV, kg, Total Volume: 1,000, Bolus Dose, Priority: STAT, Start date: 09/18/11 9:06:00, Duration: 1 doses or times, Stop date: 09/18/11 10:05:00 Sodium 2012-0 No Hughes-Jason 1,000 mL, Me moria Chloride 3-30 [place] Rate: l 0.9% 14:06: Dawson 1,000 Vin (Bolus) IV 00 Pu ml/hr, 1000 mL Infuse over: 1 hr, Route: IV, kg, Total Volume: 1,000, Bolus Dose, Priority: STAT, Start date: 09/18/11 9:06:00, Duration: 1 doses or times, Stop date: 09/18/11 10:05:00 Sodium 2012-0 No Hughes-Jason 1,000 mL, Me moria Chloride 3-30 [place] Rate: l 0.9% 14:06: Dawson 1,000 Forman (Bolus) IV 00 Pu ml/hr, 1000 mL Infuse over: 1 hr, Route: IV, kg, Total Volume: 1,000, Bolus Dose, Priority: STAT, Start date: 09/18/11 9:06:00, Duration: 1 doses or times, Stop date: 09/18/11 10:05:00 Sodium 2012-0 No Hughes-Jason 1,000 mL, Me moria Chloride 3-30 [place] Rate: l 0.9% 14:06: Dawson 1,000 Forman (Bolus) IV 00 Pu ml/hr, 1000 mL Infuse over: 1 hr, Route: IV, kg, Total Volume: 1,000, Bolus Dose, Priority: STAT, Start date: 09/18/11 9:06:00, Duration: 1 doses or times, Stop date: 09/18/11 10:05:00 Sodium 2012-0 No Hughes-Jason 1,000 mL, Me moria Chloride 3-30 [place] Rate: l 0.9% 14:06: Dawson 1,000 [...] Memoria azole 3-30 on Allowed l 14:04: Forman 58 sulfamethox 2012-0 Yes Substituti Memoria azole 3-30 on Allowed l 14:04: Vin 58 Sodium 2012-0 No Hughes-Jason 1,000 mL, Me moria Chloride 3-30 [place] Rate: l 0.9% 13:56: Dawson 1,000 Vin (Bolus) IV 00 Pu ml/hr, 1000 mL Infuse over: 1 hr, Route: IV, kg, Total Volume: 1,000, Bolus Dose, Priority: STAT, Start date: 09/18/11 8:56:00, Duration: 1 doses or times, Stop date: 09/18/11 9:55:00 Sodium 2012-0 No Hughes-Jason 1,000 mL, Me moria Chloride 3-30 [place] Rate: l 0.9% 13:56: Dawson 1,000 Forman (Bolus) IV 00 Pu ml/hr, 1000 mL Infuse over: 1 hr, Route: IV, kg, Total Volume: 1,000, Bolus Dose, Priority: STAT, Start date: 09/18/11 8:56:00, Duration: 1 doses or times, Stop date: 09/18/11 9:55:00 Sodium 2012-0 No Hughes-Jason 1,000 mL, Me moria Chloride 3-30 [place] Rate: l 0.9% 13:56: Dawson 1,000 Vin (Bolus) IV 00 Pu ml/hr, 1000 mL Infuse over: 1 hr, Route: IV, kg, Total Volume: 1,000, Bolus Dose, Priority: STAT, Start date: 09/18/11 8:56:00, Duration: 1 doses or times, Stop date: 09/18/11 9:55:00 Sodium 2012-0 No Hughes-Jason 1,000 mL, Me moria Chloride 3-30 [place] Rate: l 0.9% 13:56: Dawson 1,000 Vin (Bolus) IV 00 Pu ml/hr, 1000 mL Infuse over: 1 hr, Route: IV, kg, Total Volume: 1,000, Bolus Dose, Priority: STAT, Start date: 09/18/11 8:56:00, Duration: 1 doses or times, Stop date: 09/18/11 9:55:00 Sodium 2012-0 No Hughes-Jason 1,000 mL, Me moria Chloride 3-30 [place] Rate: l 0.9% 13:56: Dawson 1,000 Forman (Bolus) IV 00 Pu ml/hr, 1000 mL Infuse over: 1 hr, Route: IV, kg, Total Volume: 1,000, Bolus Dose, Priority: STAT, Start date: 09/18/11 8:56:00, Duration: 1 doses or times, Stop date: 09/18/11 9:55:00 clindamycin 2012-0 No Eber L 300 mg, 2 Memoria 3-21 Anabelle cap, l 21:00: Route: PO, Forman Drug form: CAP, Q8H, Start date: 09/09/11 [...] 3-21 Anabelle cap, l 21:00: Route: PO, Forman Drug form: CAP, Q8H, Start date: 09/09/11 16:00:00, Duration: 30 day, Stop date: 10/09/11 8:00:00 clindamycin 2012-0 No Eber L 300 mg, 2 Memoria 3-21 Anabelle cap, l 21:00: Route: PO, Forman 00 Drug form: CAP, Q8H, Start date: 09/09/11 16:00:00, Duration: 30 day, Stop date: 10/09/11 8:00:00 Colace 100 2012-0 Yes Luna 100 mg, 1 Memoria mg oral 3-21 Amelia cap, PO, l capsule 18:47: [place] BID, 60 Her braden 19 cap, Substituti [...] 3-21 Amelia cap, PO, l capsule 18:47: [place] BID, 60 Her braden 19 cap, Substituti on Allowed, CAP Colace 100 2011-0 Yes Luna 100 mg, 1 Memoria mg oral 3-21 Amelia cap, PO, l capsule 18:47: [place] BID, 60 Her braden 19 cap, Substituti on Allowed, CAP clindamycin 2011-0 Yes Luna 300 mg, 2 Memoria 150 mg oral 3-21 Amelia cap, PO, l capsule 18:46: [place] Q8H, 30 Her braden 55 cap, Substituti [...] braden 55 cap, Substituti on Allowed, CAP Mancos Yes Luna 1 tab, PO, Memoria 10/325 oral 3-21 Amelia Q4H, PRN, l tablet 18:46: Zeeshan 30 tab, Herm naeem 36 Pain, Substituti on Allowed, Maintenanc e, TAB Mancos Yes Luna 1 tab, PO, Memoria 10/325 oral 3-21 Amelia Q4H, PRN, l tablet 18:46: Zeeshan 30 tab, Herm naeem 36 Pain, Substituti on Allowed, Maintenanc e, TAB [place]ancos Yes Luna 1 tab, PO, Memoria 10/325 oral 3-21 Amelia Q4H, PRN, l tablet 18:46: Mcclure 30 tab, Herm naeem 36 Pain, Substituti on Allowed, Maintenanc e, TAB Mancos Yes Luna 1 tab, PO, Memoria 10/325 oral 3-21 Amelia Q4H, PRN, l tablet 18:46: [place]cl[place] 30 tab, Herm naeem 36 Pain, Substituti on Allowed, Maintenanc e, TAB Mancos Yes Luna 1 tab, PO, Memoria 10/325 oral 3-21 Amelia Q4H, PRN, l tablet 18:46: Zeeshan 30 tab, Herm naeem 36 Pain, Substituti on Allowed, Maintenanc e, TAB [place] No Hollie Donavan 1 tab, Mendoza janice 10/325 oral 3-21 [place] Route: PO, l tablet 09:00: Drug Form: Nidia nn 00 TAB, Q4H, Start date: 09/09/11 4:00:00, Duration: 30 day, Stop date: 10/09/11 0:00:00 Mancos No Hollie Donavan 1 tab, Mendoza janice 10/325 oral 3-21 Mahi Route: PO, l tablet 09:00: Drug Form: Nidia nn 00 TAB, Q4H, Start date: 09/09/11 4:00:00, Duration: 30 day, Stop date: 10/09/11 0:00:00 Mancos No Hollie Donavan 1 tab, Mendoza janice 10/325 oral 3-21 Mahi Route: PO, l tablet 09:00: Drug Form: Nidia nn 00 TAB, Q4H, Start date: 09/09/11 4:00:00, Duration: 30 day, Stop date: 10/09/11 0:00:00 Mancos 2012-0 No Hollie Donavan 1 tab, Mendoza janice 10/325 oral 3-21 [place]i Route: PO, l tablet 09:00: Drug Form: Nidia nn 00 TAB, Q4H, Start date: 09/09/11 4:00:00, Duration: 30 day, Stop date: 10/09/11 0:00:00 Mancos 2011-0 No Hollie Donavan 1 tab, Mendoza [...] 3-19 Omidvar tab, l 15:30: Route: PO, Forman 00 Drug form: TAB, Daily, Start date: 09/07/11 10:30:00, Duration: 30 day, Stop date: 10/07/11 9:00:00 enalapril 2012-0 No Bism[place] 5 mg, 1 Mem oria 3-19 [place] tab, l 15:30: Route: PO, Forman Drug form: TAB, Daily, Start date: 09/07/11 [...] 30 day, Stop date: 10/07/11 9:00:00 flumazenil 2012-0 No Gayle 0.2 mg, 2 Memoria 3-19 [...] ne 3-19 Josefina 0.25 mL, l 14:19: [place] Route: Forman 00 IVP, Drug form: INJ, Q5Min, PRN Pain Score 4-6, Start date: 09/07/11 9:19:00, Duration: 5 doses or times, Stop date: Limited # of times acetaminoph 2011- No Gayle 15 mL, M emoria en-hydrocod 3-19 Josefina Route: PO, l one 325 14:19: [place] Drug Form: He rmann mg-10 mg/15 00 [...] ne 3-19 Josefina 0.25 mL, l 14:19: [place] Route: Vin 00 IVP, Drug form: INJ, Q5Min, PRN Pain Score 4-6, Start date: 09/07/11 9:19:00, Duration: 5 doses or times, Stop date: Limited # of times acetaminoph No Gayle 15 mL, M emoria en-hydrocod 3-19 Josefina Route: PO, l one 325 14:19: [place] Drug Form: He rmann mg-10 mg/15 00 SOLN, Q4H, mL oral PRN Pain solution Score 4-6, Start date: 09/07/11 9:19:00, Duration: 1 day, Stop date: 09/08/11 8:00:00 flumazenil 0 No Gayle 0.2 mg, 2 Memoria 3-19 Josefina mL, Route: l 14:19: [place] IVP, Drug Jake n 00 form: INJ, PRN, PRN Benzodiaze pine Reversal, Initial dose, Start date: 09/07/11 9:19:00, Duration: 1 day, Stop date: 09/08/11 9:18:00 naloxone 0 No Gayle 0.04 mg, Me moria 3-19 Josef[place] 0.1 mL, l 14:19: Gavin Route: Forman 00 IVP, Drug form: INJ, Q2MIN, PRN Narcotic Reversal, Start date: 09/07/11 9:19:00, Duration: 8 doses or times, Stop date: Limited # of times ondansetron No Gayle 4 mg, 2 Memoria 3-19 Josefina mL, Route: l 14:19: [place] IVP, Drug Jake n 00 form: INJ, ONCE, PRN Nausea & Vomiting, Start date: 09/07/11 9:19:00 hydromorpho 2011-0 No Gayle 0.5 mg, Memoria ne 3-19 [place] 0.25 mL, l 14:19: [place] Route: Forman 00 IVP, Drug form: INJ, Q5Min, PRN Pain Score 4-6, Start date: 09/07/11 9:19:00, Duration: 5 doses or times, Stop date: Limited # of times acetaminoph 0 No Gayle 15 mL, M emoria en-hydrocod 3-19 Josef[place] Route: PO, l one 325 14:19: [place] Drug Form: He rmann mg-10 mg/15 00 SOLN, Q4H, mL oral PRN Pain solution Score 4-6, Start date: 09/07/11 9:19:00, Duration: 1 day, Stop date: 09/08/11 8:00:00 flumazenil No Gayle 0.2 mg, 2 Memoria 3-19 Josefina mL, Route: l 14:19: [place] IVP, Drug Jake n 00 form: INJ, PRN, PRN Benzodiaze pine Reversal, Initial dose, Start date: 09/07/11 9:19:00, Duration: 1 day, Stop date: 09/08/11 9:18:00 naloxone 2011-0 No Gayle 0.04 mg, Me moria 3-19 Josef[place] 0.1 mL, l 14:19: [place] Route: Forman 00 IVP, Drug form: INJ, Q2MIN, PRN Narcotic Reversal, Start date: 09/07/11 9:19:00, Duration: 8 doses or times, Stop date: Limited # of times ondansetron 0 No Gayle 4 mg, 2 Memoria 3-19 Josefina mL, Route: l 14:19: [place] IVP, Drug Jake n 00 form: INJ, ONCE, PRN Nausea & Vomiting, Start date: 09/07/11 9:19:00 hydromorpho No Gayle 0.5 mg, Memoria ne 3-19 Josefina 0.25 mL, l 14:19: [place] Route: Vin 00 IVP, Drug form: INJ, [...] Memoria 3-19 Josefina mL, Route: l 14:19: [place] IVP, Drug Jake n 00 form: INJ, PRN, PRN Benzodiaze pine Reversal, Initial dose, Start date: 09/07/11 9:19:00, Duration: 1 day, Stop date: 09/08/11 9:18:00 naloxone No Gayle 0.04 mg, Me moria 3-19 Josefina 0.1 mL, l 14:19: [place] Route: Vin 00 IVP, Drug form: INJ, Q2MIN, PRN Narcotic Reversal, Start date: 09/07/11 9:19:00, Duration: 8 doses or times, Stop date: Limited # of times ondansetron No Gayle 4 mg, 2 Memoria 3-19 Josefina mL, Route: l 14:19: [place] IVP, Drug Jake n 00 form: INJ, ONCE, PRN Nausea & Vomiting, Start date: 09/07/11 9:19:00 hydromorpho No Gayle 0.5 mg, Memoria ne 3-19 Josefina 0.25 mL, l 14:19: [place] Route: Vin 00 IVP, Drug form: INJ, Q5Min, PRN Pain Score 4-6, Start date: 09/07/11 9:19:00, Duration: 5 doses or times, Stop date: Limited # of times acetaminoph 2011- No Gayle 15 mL, M emoria en-hydrocod 09-06 Josefina Route: PO, l one 325 14:19: [place] Drug Form: Tyrel rmann mg-10 mg/15 00 SOLN, Q4H, mL oral PRN Pain solution Score 4-6, Start date: 09/07/11 9:19:00, Duration: 1 day, Stop date: 09/08/11 8:00:00 Lactated 0 No [place] 1,000 mL, Me moria Ringers IV 09-06 Omidvar Rate: 125 l 1,000 mL 14:06: ml/hr, Forman 00 Infuse over: 8 hr, Route: IV, Dosing Weight 68.182 kg, Total Volume: 1,000, Start date: 09/07/11 9:06:00, Duration: 30 day, Stop date: 10/07/11 9:05:00 Lactated 2011-0 No [place] 1,000 mL, Me moria Ringers IV 09-06 Omidvar Rate: 125 l 1,000 mL 14:06: ml/hr, Form[place] 00 Infuse over: 8 hr, Route: IV, Dosing Weight 68.182 kg, Total Volume: 1,000, Start date: 09/07/11 9:06:00, Duration: 30 day, Stop date: 10/07/11 9:05:00 Lactated 2011-0 No [place] 1,000 mL, Me moria Ringers IV 09-06 Omidvar Rate: 125 l 1,000 mL 14:06: ml/hr, Form[place] 00 Infuse over: 8 hr, Route: IV, Dosing Weight 68.182 kg, Total Volume: 1,000, Start date: 09/07/11 9:06:00, Duration: 30 day, Stop date: 10/07/11 9:05:00 Lactated 2011-0 No Bismark 1,000 mL, Me moria Ringers IV 09-06 Omidvar Rate: 125 l 1,000 mL 14:06: ml/hr, Forman 00 Infuse over: 8 hr, Route: IV, Dosing Weight 68.182 kg, Total Volume: 1,000, Start date: 09/07/11 9:06:00, Duration: 30 day, Stop date: 10/07/11 9:05:00 Lactated 2011-0 No [place] 1,000 mL, Me moria Ringers IV 09-06 Omidvar Rate: 125 l 1,000 mL 14:06: ml/hr, Forman 00 Infuse over: 8 hr, Route: IV, Dosing Weight 68.182 kg, Total Volume: 1,000, Start date: 09/07/11 9:06:00, Duration: 30 day, Stop date: 10/07/11 9:05:00 clindamycin 2011-0 No Maximo R 600 mg, Memoria - Arias Route: l 13:31: IVPB, Vin 00 ONCE, Start date: 09/07/11 8:31:00, Stop date: 09/07/11 8:31:00 clindamycin 2011- No Maximo R 600 mg, Memoria - Arias Route: l 13:31: IVPB, Forman 00 ONCE, Start date: 09/07/11 8:31:00, Stop [...] Memoria - Arias Route: l 13:31: IVPB, Forman 00 ONCE, Start date: 09/07/11 8:31:00, Stop [...] Stop date: 10/06/11 23:59:00 normal 2011-0 No Yuyr W 1,000 mL, M emoria [...] 30 day, Stop date: 10/06/11 8:24:00 normal 2011- No Yury W 1,000 mL, [...] Duration: 30 day, Stop date: 10/04/11 18:10:00 Mancos 2012-0 No Mahammad 1 tab, Memori a 10/325 oral 3-16 Simeon Route: PO, l tablet 17:00: Dez Drug Form: Tyrel rmann 00 TAB, Q4H, Start date: 09/04/11 12:00:00, Duration: 30 day, Stop date: 10/04/11 8:00:00 Mancos 2012-0 No Mahammad 1 tab, Memori a 10/325 oral 3-16 Simeon Route: PO, l tablet 17:00: Dez Drug Form: Tyrel rmann 00 TAB, Q4H, Start date: 09/04/11 12:00:00, Duration: 30 day, Stop date: 10/04/11 8:00:00 Mancos 2012-0 No Mahammad 1 tab, Memori a 10/325 oral 3-16 Simeon Route: PO, l tablet 17:00: Dez Drug Form: Tyrel rmann 00 TAB, Q4H, Start date: 09/04/11 12:00:00, Duration: 30 day, Stop date: 10/04/11 8:00:00 Mancos 2012-0 No Mahammad 1 tab, Memori a 10/325 oral 3-16 Simeon Route: PO, l tablet 17:00: Dez Drug Form: Tyrel rmann 00 TAB, Q4H, Start date: 09/04/11 12:00:00, Duration: 30 day, Stop date: 10/04/11 8:00:00 Mancos 2012-0 No Mahammad 1 tab, Memori a [...] 10cc/hr, l - site 1 14:50: Route: Forman 400 mL 00 NERVE BLOCK, Start date: 09/04/11 9:50:00 400 mL, Duration: 30 day, Stop date: 10/04/11 9:49:00 naloxone 2012-0 No Rosalino 0.04 mg, Me moria 3-16 Kvaon 0.1 mL, l 14:50: Route: Vin 00 [...] 3-16 Kavon 0.1 mL, l 14:50: Route: Forman 00 IVP, Drug form: INJ, Q2MIN, PRN [...] 3-16 Kavon 0.1 mL, l 14:50: Route: Forman 00 IVP, Drug form: INJ, Q2MIN, PRN Narcotic Reversal, Start date: 09/04/11 9:50:00, Duration: 30 day, Stop date: 10/04/11 9:49:00 ondansetron No Rosalino 4 mg, 2 Memoria 3-16 Kavon mL, Route: l 14:50: IVP, Drug 00 form: INJ, ONCE, PRN Nausea & Vomiting, Start date: 09/04/11 9:50:00, Duration: 1 doses or times, Stop date: Limited # of times ropivacaine No Rosalino Dosing: Memoria 0.2% in NS 3-16 Kavon 10cc/hr, l - site 1 14:50: Route: Forman 400 mL 00 NERVE BLOCK, Start date: 09/04/11 9:50:00 400 mL, Duration: 30 day, Stop date: 10/04/11 9:49:00 naloxone 0 No Rosalino 0.04 mg, Me moria 3-16 Kavon 0.1 mL, l 14:50: Route: Vin 00 IVP, Drug form: INJ, Q2MIN, PRN Narcotic Reversal, Start date: 09/04/11 9:50:00, Duration: 30 day, Stop date: 10/04/11 9:49:00 Mancos 2011-0 No Bismark 1 tab, Memoria 10/325 oral 3-16 Omidvar Route: PO, l tablet 14:49: Drug Form: Nidia nn 00 TAB, Q4H, PRN Pain, Start date: 09/04/11 9:49:00, Stop date: 10/04/11 9:48:00 Mancos 2011-0 No Bismark 1 tab, Memoria 10/325 oral 3-16 Omidvar Route: PO, l tablet 14:49: Drug Form: Nidia nn 00 TAB, Q4H, PRN Pain, Start date: 09/04/11 9:49:00, Stop date: 10/04/11 9:48:00 Mancos 2011-0 No Bismark 1 tab, Memoria 10/325 oral 3-16 Omidvar Route: PO, l tablet 14:49: Drug Form: Nidia nn 00 TAB, Q4H, PRN Pain, Start date: 09/04/11 9:49:00, Stop date: 10/04/11 9:48:00 Mancos 2011-0 No Bismark 1 tab, Memoria 10/325 oral 3-16 Omidvar Route: PO, l tablet 14:49: Drug Form: Nidia nn 00 TAB, Q4H, PRN Pain, Start date: 09/04/11 9:49:00, Stop date: 10/04/11 9:48:00 Mancos 2011-0 No Bismark 1 tab, Memoria 10/325 [...] 3-16 Puga Route: IV, l 14:40: ONCE, Forman 00 Start date: 09/04/11 9:40:00, Stop date: [...] Beck 0.1 mL, l 13:37: Hayden Route: Forman 00 IVP, Drug form: INJ, Q2MIN, PRN Narcotic Reversal, Start date: 09/04/11 8:37:00, Duration: 8 doses or times, Stop date: Limited # of times meperidine No Hollie 12.5 mg, Me moria 3-16 Beck 0.5 mL, l 13:37: Hayden Route: Forman IVP, Drug form: INJ, Q30Min, PRN Other [...] Beck 0.1 mL, l 13:37: Hayden Route: Forman IVP, Drug form: INJ, Q2MIN, PRN Narcotic [...] 3-16 Kavon 0.25 mL, l 13:37: Route: Forman IVP, Drug form: INJ, Q5Min, PRN Pain [...] 3-16 Kavon 0.25 mL, l 13:37: Route: Forman 00 IVP, Drug form: INJ, Q5Min, PRN [...] Beck 0.5 mL, l 13:37: Hayden Route: Forman 00 IVP, Drug form: INJ, Q30Min, PRN [...] 3-16 Kavon 0.25 mL, l 13:37: Route: Forman 00 IVP, Drug form: INJ, Q5Min, PRN Pain Score 4-6, Start date: 09/04/11 8:37:00, Duration: 5 doses or times, Stop date: Limited # of times clindamycin 2011-0 No Eber L 600 mg, 4 Memoria 3-15 Anabelle mL, Route: l 16:00: IVPB, Forman 00 [id number], Start date: 09/03/11 11:00:00, Duration: [...] 3-15 Anabelle mL, Route: l 16:00: IVPB, Forman 00 [id number], Start date: 09/03/11 11:00:00, Duration: [...] date: 09/03/11 8:39:00, Stop date: 09/03/11 8:39:00 Mancos 5/325 2011-0 No Rosalino 1 tab, M emoria oral tablet 3-15 Kavon Route: PO, l 05:00: Drug Form: Forman 00 TAB, Q4H, Start date: 09/03/11 0:00:00, Duration: 30 day, Stop date: 10/02/11 20:00:00 Mancos 5/325 2011-0 No Rosalino 1 tab, M emoria oral tablet - [facility] Route: PO, l 05:00: Drug Form: Forman 00 TAB, Q4H, Start date: 09/03/11 0:00:00, Duration: 30 day, Stop date: 10/02/11 20:00:00 Mancos 5/325 2011-0 No Rosalino 1 tab, M emoria oral tablet 09-02 [facility] Route: PO, l 05:00: Drug Form: Vin 00 TAB, Q4H, Start date: 09/03/11 0:00:00, Duration: 30 day, Stop date: 10/02/11 20:00:00 Mancos 5/325 2011-0 No Rosalino 1 tab, M emoria oral tablet 09-02 [facility] Route: PO, l 05:00: Drug Form: Forman 00 TAB, Q4H, Start date: 09/03/11 0:00:00, Duration: 30 day, Stop date: 10/02/11 20:00:00 Mancos 5/325 2011-0 No Rosalino 1 tab, M emoria oral tablet 09-02 [facility] Route: PO, l 05:00: Drug Form: Vin 00 TAB, Q4H, Start date: 09/03/11 0:00:00, Duration: 30 day, Stop date: 10/02/11 20:00:00 Geodon 2011-0 No Eber L 120 mg, 3 Memoria 3-15 Anabelle cap, l 02:00: Route: PO, Forman 00 Drug form: CAP, Bedtime, Start date: [...] 3-15 Anabelle cap, l 02:00: Route: PO, Forman 00 Drug form: CAP, Bedtime, Start date: [...] 3-15 Anabelle cap, l 02:00: Route: PO, Forman 00 Drug form: CAP, Bedtime, Start date: [...] 3-14 Anabelle cap, l 17:00: Route: PO, Forman 00 Drug form: ERCAP, Daily, Give qAM [...] 3-14 Anabelle cap, l 17:00: Route: PO, Forman 00 Drug form: ERCAP, Daily, Give qAM after today's dose., Start date: 09/02/11 12:00:00, Duration: 30 day, Stop date: 10/02/11 9:00:00 Mancos 5/325 2011-0 No Rosalino 1 tab, M emoria oral tablet 09-01 [facility] Route: PO, l 16:25: Drug Form: Forman 00 TAB, Q4H, PRN Pain, Start date: 09/02/11 11:25:00, Duration: 30 day, Stop date: 10/02/11 11:24:00 Mancos 5/325 2011-0 No Rosalino 1 tab, M emoria oral tablet 09-01 [facility] Route: PO, l 16:25: Drug Form: Vin 00 TAB, Q4H, PRN Pain, Start date: 09/02/11 11:25:00, Duration: 30 day, Stop date: 10/02/11 11:24:00 Mancos 5/325 2011-0 No Rosalino 1 tab, M emoria oral tablet 09-01 [facility] Route: PO, l 16:25: Drug Form: Vin 00 TAB, Q4H, PRN Pain, Start date: 09/02/11 11:25:00, Duration: 30 day, Stop date: 10/02/11 11:24:00 Mancos 5/325 2011-0 No Rosalino 1 tab, M emoria oral tablet 09-01 [facility] Route: PO, l 16:25: Drug Form: Forman 00 TAB, Q4H, PRN Pain, Start date: 09/02/11 11:25:00, Duration: 30 day, Stop date: 10/02/11 11:24:00 Mancos 5/325 2011-0 No Rosalino 1 tab, M emoria oral tablet 09-01 [facility] Route: PO, l 16:25: Drug Form: Forman 00 TAB, Q4H, PRN Pain, Start date: [...] Omidvar mL, Route: l 16:15: IVPB, Drug Forman 00 form: INJ, ONCE, Start date: 09/02/11 11:15:00, Stop date: 09/02/11 11:15:00 magnesium 2011-0 No Bismark 4 gm, 50 Me moria sulfate 3-14 Omidvar mL, Route: l 16:15: IVPB, Drug Vin 00 form: INJ, ONCE, Start date: 09/02/11 11:15:00, Stop date: 09/02/11 11:15:00 magnesium 2011-0 No Bismark 4 gm, 50 Me moria sulfate 3-14 Omidvar mL, Route: l 16:15: IVPB, Drug Forman 00 form: INJ, ONCE, Start date: 09/02/11 11:15:00, Stop date: 09/02/11 11:15:00 magnesium 2011-0 No Bismark 4 gm, 50 Me moria sulfate 3-14 Omidvar mL, Route: l 16:15: IVPB, Drug Forman 00 form: INJ, ONCE, Start date: 09/02/11 [...] 14:00: IVPB, Drug Vin 00 form: INJ, [id number], Start date: 09/02/11 9:00:00, Duration: 30 day, Stop date: 10/01/11 21:00:00 Lovenox 2012-0 No Missael 40 mg, 0.4 Mem oria 3-14 Movva mL, Route: l 14:00: SUB-Q, Vin 00 Drug form: INJ, Daily, Start date: 09/02/11 9:00:00, Duration: 30 day, Stop date: 10/01/11 9:00:00 vancomycin 2012-0 No Eber L 1 gm, Memoria 3-14 Anabelle Route: l 14:00: IVPB, Drug Vin 00 form: INJ, [id number], Start date: 09/02/11 9:00:00, Duration: 30 day, Stop date: 10/01/11 21:00:00 Lovenox 2012-0 No Missael 40 mg, 0.4 Mem oria 3-14 Movva mL, Route: l 14:00: SUB-Q, Vin Drug form: INJ, Daily, Start date: 09/02/11 9:00:00, Duration: 30 day, Stop date: 10/01/11 9:00:00 vancomycin 2011-0 No Eber L 1 gm, Memoria 3-14 Anabelle Route: l 14:00: IVPB, Drug form: INJ, [id number], Start date: 09/02/11 9:00:00, Duration: 30 day, Stop date: 10/01/11 21:00:00 Lovenox 2012-0 No Missael 40 mg, 0.4 Mem oria 3-14 Movva mL, Route: l 14:00: SUB-Q, Forman 00 Drug form: INJ, Daily, Start date: 09/02/11 9:00:00, Duration: 30 day, Stop date: 10/01/11 9:00:00 vancomycin 2011-0 No Eber L 1 gm, Memoria 3-14 Anabelle Route: l 14:00: IVPB, Drug Forman 00 form: INJ, [id number], Start date: 09/02/11 9:00:00, Duration: 30 day, Stop date: 10/01/11 21:00:00 Lovenox 2012-0 No Missael 40 mg, 0.4 Mem oria 3-14 Movva mL, Route: l 14:00: SUB-Q, Vin Drug form: INJ, Daily, Start date: 09/02/11 9:00:00, Duration: 30 day, Stop date: 10/01/11 9:00:00 vancomycin 2012-0 No Eber L 1 gm, Memoria 3-14 Anabelle Route: l 14:00: IVPB, Drug Vin 00 form: INJ, [id number], Start date: 09/02/11 9:00:00, Duration: 30 day, [...] 3-14 Anabelle mL, Route: l 10:00: IVPB, Forman 00 [id number], Start date: 09/02/11 5:00:00, Duration: [...] Brandon mL, Route: l 04:00: Connally IVPB, Forman 00 [id number], Start date: 09/01/11 23:00:00, Duration: 3 doses or times, Stop date: 09/02/11 15:00:00 clindamycin 2011-0 No Yury 600 mg, 4 Memoria (SCIP) 3-14 Brandon mL, Route: l 04:00: Connally IVPB, Forman 00 [id number], Start date: 09/01/11 23:00:00, Duration: [...] Brandon mL, Route: l 04:00: Connally IVPB, Forman 00 [id number], Start date: 09/01/11 23:00:00, Duration: 3 doses or times, Stop date: 09/02/11 15:00:00 insulin 2011-0 No Bismark 15 unit, Mendoza janice [employer] 3-14 Omidvar 0.15 mL, l H 02:00: Route: Vin Henriquez SUB-Q, Drug form: INJ, Q12H, Start date: 09/01/11 21:00:00, Stop date: 10/01/11 9:00:00 insulin 2011-0 No Bismark 15 unit, Mendoza janice [employer] 3-14 Omidvar 0.15 mL, l H 02:00: Route: Vin 00 SUB-Q, Drug form: INJ, Q12H, Start date: 09/01/11 21:00:00, Stop date: 10/01/11 9:00:00 insulin 2011-0 No Bismark 15 unit, Mendoza janice isoph[employer] 3-14 Omidvar 0.15 mL, l H 02:00: Route: Forman 00 SUB-Q, Drug form: INJ, Q12H, Start date: 09/01/11 21:00:00, Stop date: 10/01/11 9:00:00 insulin 2011-0 No Bismark 15 unit, Mendoza janice is[employer] 3-14 Omidvar 0.15 mL, l H 02:00: Route: Forman SUB-Q, Drug form: INJ, Q12H, Start date: 09/01/11 21:00:00, Stop date: 10/01/11 9:00:00 insulin 2011-0 No Bismark 15 unit, Mendoza janice isophane[employer] 3-14 Omidvar 0.15 mL, l H 02:00: Route: Vin SUB-Q, Drug form: INJ, Q12H, Start date: 09/01/11 21:00:00, Stop date: 10/01/11 9:00:00 labetalol No Mariaelena-Corea 5 mg, Me moria 3-14 Barbra Route: l 01:07: Feliciano IVP, Forman 00 Q5Min, PRN Elevated BP, Start date: 09/01/11 20:07:00, Duration: 5 doses or times, Stop date: Limited # of times hydrALAZINE No Mariaelena-Corea 5 mg, Memoria 3-14 Barbra Route: l 01:07: Feliciano IVP, Forman 00 Q5Min, PRN Elevated BP, Start date: 09/01/11 20:07:00, Duration: 4 doses or times, Stop date: Limited # of times hydromorpho No Mariaelena-Corea 0.5 mg, Memoria ne 3-14 Barbra Route: l 01:07: Feliciano IVP, Forman 00 Q5Min, PRN Pain Score 4-6, Start date: 09/01/11 20:07:00, Duration: 5 doses or times, Stop date: Limited # of times naloxone No Mariaelena-Corea 0.04 mg, Memoria 3-14 Barbra Route: l 01:07: Feliciano IVP, Forman 00 Q2MIN, PRN Narcotic Reversal, Start date: 09/01/11 20:07:00, Duration: 8 doses or times, Stop date: Limited # of times flumazenil No Mariaelena-Corea 0.2 mg, Memoria 3-14 Barbra Route: l 01:07: Feliciano IVP, PRN, Forman 00 PRN Benzodiaze pine Reversal, Initial dose, Start date: 09/01/11 20:07:00, Duration: 30 day, Stop date: 10/01/11 20:06:00 ondansetron No Mariaelena-Corea 4 mg, Memoria 3-14 Barbra Route: l 01:07: Feliciano IVP, ONCE, Vin 00 PRN Nausea & Vomiting, Start date: 09/01/11 20:07:00 labetalol No Mariaelena-Corea 5 mg, Me moria 3-14 Barbra Route: l 01:07: Feliciano IVP, Forman 00 Q5Min, PRN Elevated BP, Start date: 09/01/11 20:07:00, Duration: 5 doses or times, Stop date: Limited # of times hydrALAZINE No Mariaelena-Corea 5 mg, Memoria 3-14 Barbra Route: l 01:07: Feliciano IVP, Forman 00 Q5Min, PRN Elevated BP, Start date: 09/01/11 20:07:00, Duration: 4 doses or times, Stop date: Limited # of times hydromorpho No Mariaelena-Corea 0.5 mg, Memoria ne 3-14 Barbra Route: l 01:07: Feliciano IVP, Vin 00 Q5Min, PRN Pain Score 4-6, Start date: 09/01/11 20:07:00, Duration: 5 doses or times, Stop date: Limited # of times naloxone No Mairaelena-Corea 0.04 mg, Memoria 3-14 Barbra Route: l 01:07: Feliciano IVP, Forman 00 Q2MIN, PRN Narcotic Reversal, Start date: [...] Barbra Route: l 01:07: Feliciano IVP, ONCE, Forman 00 PRN Nausea & Vomiting, Start date: 09/01/11 20:07:00 labetalol No Mariaelena-Corea 5 mg, Me moria 3-14 Barbra Route: l 01:07: Feliciano IVP, Forman 00 Q5Min, PRN Elevated BP, Start date: [...] Barbra Route: l 01:07: Feliciano IVP, PRN, Forman 00 PRN Benzodiaze pine Reversal, Initial dose, Start date: 09/01/11 20:07:00, Duration: 30 day, Stop date: 10/01/11 20:06:00 ondansetron No Mariaelena-Corea 4 mg, Memoria 3-14 Barbra Route: l 01:07: Feliciano IVP, ONCE, Forman 00 PRN Nausea & Vomiting, Start date: [...] 3-14 Barbra Route: l 01:07: Feliciano IVP, Forman 00 Q2MIN, PRN Narcotic Reversal, Start date: 09/01/11 20:07:00, Duration: 8 doses or times, Stop date: Limited # of times flumazenil No Mariaelena-Corea 0.2 mg, Memoria 3-14 Barbra Route: l 01:07: Efliciano IVP, PRN, Forman 00 PRN Benzodiaze pine Reversal, Initial dose, Start date: 09/01/11 20:07:00, Duration: 30 day, Stop date: 10/01/11 20:06:00 ondansetron 0 No Mariaelena-Corea 4 mg, Memoria 3-14 Barbra Route: l 01:07: Feliciano IVP, ONCE, Forman 00 PRN Nausea & Vomiting, Start date: 09/01/11 20:07:00 labetalol No Mariaelena-Corea 5 mg, Me moria 3-14 Barbra Route: l 01:07: Feliciano IVP, Vin 00 Q5Min, PRN Elevated BP, Start date: 09/01/11 20:07:00, Duration: 5 doses or times, Stop date: Limited # of times hydrALAZINE No Mariaelena-Corea 5 mg, Memoria 3-14 Barbra Route: l 01:07: Feliciano IVP, Forman 00 Q5Min, PRN Elevated BP, Start date: [...] Barbra Route: l 01:07: Feliciano IVP, PRN, Forman 00 PRN Benzodiaze pine Reversal, Initial dose, Start date: 09/01/11 20:07:00, Duration: 30 day, Stop date: 10/01/11 20:06:00 ondansetron 0 No Mariaelena-Corea 4 mg, Memoria 3-14 Barbra Route: l 01:07: Feliciano IVP, ONCE, Forman 00 PRN Nausea & Vomiting, Start date: 09/01/11 20:07:00 vancomycin 0 No Mele 1 gm, Mem oria 3-14 Gauvain Route: l 01:00: IVPB, Drug Forman 00 form: INJ, [id number], Start date: 09/01/11 20:00:00, Duration: 30 day, Stop date: 10/01/11 8:00:00 vancomycin No Mele 1 gm, Mem oria 3-14 Gauvain Route: l 01:00: IVPB, Drug Vin 00 form: INJ, [id number], Start date: 09/01/11 20:00:00, Duration: 30 day, Stop date: 10/01/11 8:00:00 vancomycin No Mele 1 gm, Mem oria 3-14 Gauvain Route: l 01:00: IVPB, Drug Vin form: INJ, [id number], Start date: 09/01/11 20:00:00, Duration: 30 day, Stop date: 10/01/11 8:00:00 vancomycin 0 No Mele 1 gm, Mem oria 3-14 Gauvain Route: l 01:00: IVPB, Drug Forman 00 form: INJ, [id number], Start date: 09/01/11 20:00:00, Duration: 30 day, Stop date: 10/01/11 8:00:00 vancomycin 2011-0 No Mele 1 gm, Mem oria 3-14 Gauvain Route: l 01:00: IVPB, Drug Forman 00 form: INJ, [id number], Start date: 09/01/11 20:00:00, Duration: 30 day, Stop date: 10/01/11 8:00:00 Lactated 2011-0 No Charbel A 1,000 mL, Memoria Ringers IV - Wong Rate: 125 l 1,000 mL 00:55: ml/hr, Forman 00 Infuse over: 8 hr, Route: IV, Dosing Weight 68.2 kg, Total Volume: 1,000, Start date: 09/01/11 19:55:00, Duration: 30 day, Stop date: 10/01/11 19:54:00 Lactated 2011-0 No Charbel A 1,000 mL, Memoria Ringers IV 3-14 Wong Rate: 125 l 1,000 mL 00:55: ml/hr, Forman 00 Infuse over: 8 hr, Route: IV, Dosing Weight 68.2 kg, Total Volume: 1,000, Start date: 09/01/11 19:55:00, Duration: 30 day, Stop date: 10/01/11 19:54:00 Lactated 2011-0 No Charbel A 1,000 mL, Memoria Ringers IV 3-14 Wong Rate: 125 l 1,000 mL 00:55: ml/hr, Forman 00 Infuse over: 8 hr, Route: IV, Dosing Weight 68.2 kg, Total Volume: 1,000, Start date: 09/01/11 19:55:00, Duration: 30 day, Stop date: 10/01/11 19:54:00 Lactated 2011-0 No Charbel A 1,000 mL, Memoria Ringers IV 3-14 Wong Rate: 125 l 1,000 mL 00:55: ml/hr, Forman 00 Infuse over: 8 hr, Route: IV, [...] 3-14 Movva Route: l 00:00: IVPB, Drug Forman 00 form: INJ, [id number], Start date: 09/01/11 19:00:00, Duration: 30 day, Stop date: 10/01/11 7:00:00 vancomycin 2011-0 No Missael 1 gm, Memor ia 3-14 Movva Route: l 00:00: IVPB, Drug Vin 00 form: INJ, [id number], Start date: 09/01/11 19:00:00, Duration: 30 day, Stop date: 10/01/11 7:00:00 vancomycin 2011-0 No Missael 1 gm, Memor ia 3-14 Movva Route: l 00:00: IVPB, Drug Forman 00 form: INJ, [id number], Start date: 09/01/11 19:00:00, Duration: 30 day, Stop date: 10/01/11 7:00:00 vancomycin 2011-0 No Missael 1 gm, Memor ia 3-14 Movva Route: l 00:00: IVPB, Drug Forman 00 form: INJ, [id number], Start date: 09/01/11 19:00:00, Duration: 30 day, Stop date: 10/01/11 7:00:00 vancomycin 2011-0 No Missael 1 gm, Memor ia 3-14 Movva Route: l 00:00: IVPB, Drug Vin form: INJ, [id number], Start date: 09/01/11 19:00:00, Duration: 30 day, [...] Movva mL, Route: l 23:23: IVP, Drug Forman 00 Form: INJ, PRN, PRN Blood Glucose Results, Start date: 09/01/11 18:23:00, Duration: 30 day, Stop date: 10/01/11 18:22:00 insulin 2012-0 No Missael 6 unit, Memori a aspart 3-13 Movva 0.06 mL, l 23:23: Route: Forman 00 SUB-Q, Drug form: SOLN, TID-Before Meals, [...] 3-13 Movva 0.06 mL, l 23:23: Route: Forman SUB-Q, Drug form: SOLN, TID-Before Meals, PRN Blood Glucose Results, Start date: 09/01/11 18:23:00, Duration: 30 day, Stop date: 10/01/11 18:22:00 glucagon 2012-0 No Missael 1 mg, Memoria 3-13 Movva Route: IM, l 23:23: Drug form: Forman 00 PDR/INJ, PRN, PRN Blood Glucose Results, Start date: 09/01/11 18:23:00, Duration: 30 day, Stop date: 10/01/11 18:22:00 Dextrose 2012-0 No Missael 25 gm, 50 Mem oria 50% Syringe 3-13 Movva mL, Route: l 23:23: IVP, Drug Forman 00 Form: INJ, PRN, PRN Blood Glucose Results, Start date: 09/01/11 18:23:00, Duration: 30 day, Stop date: 10/01/11 18:22:00 insulin 2012-0 No Missael 6 unit, Memori a aspart 3-13 Movva 0.06 mL, l 23:23: Route: Forman 00 SUB-Q, Drug form: SOLN, TID-Before Meals, PRN Blood Glucose Results, Start date: 09/01/11 18:23:00, Duration: 30 day, Stop date: 10/01/11 18:22:00 glucagon 2012-0 No Missael 1 mg, Memoria 3-13 Movva Route: IM, l 23:23: Drug form: Forman PDR/INJ, PRN, PRN Blood Glucose Results, Start date: 09/01/11 18:23:00, Duration: 30 day, Stop date: 10/01/11 18:22:00 Dextrose 2011-0 No Missael 25 gm, 50 Mem oria 50% Syringe 3-13 Movva mL, Route: l 23:23: IVP, Drug Forman 00 Form: INJ, PRN, PRN Blood Glucose Results, Start date: 09/01/11 18:23:00, Duration: 30 day, Stop date: 10/01/11 18:22:00 insulin 2012-0 No Missael 6 unit, Memori a aspart 3-13 Movva 0.06 mL, l 23:23: Route: Forman SUB-Q, Drug form: SOLN, TID-Before Meals, PRN [...] Movva mL, Route: l 23:23: IVP, Drug Forman 00 Form: INJ, PRN, PRN Blood Glucose Results, Start date: 09/01/11 18:23:00, Duration: 30 day, Stop date: 10/01/11 18:22:00 morphine 2012-0 No Daja Shannan 2 mg, 1 M emoria Sulfate 3-13 Beni mL, Route: l 21:14: IVP, Drug Forman 00 form: INJ, Q4H, PRN Severe Pain, Start date: 09/01/11 16:14:00, Stop date: 10/01/11 16:13:00 morphine 2011-0 No Daja Shannan 2 mg, 1 M emoria Sulfate 3-13 Beni mL, Route: l 21:14: IVP, Drug Forman 00 form: INJ, Q4H, PRN Severe Pain, Start date: 09/01/11 16:14:00, Stop date: 10/01/11 16:13:00 morphine 2012-0 No Daja Shannan 2 mg, 1 M emoria Sulfate 3-13 Beni mL, Route: l 21:14: IVP, Drug Forman 00 form: INJ, Q4H, PRN Severe Pain, [...] Beni mL, Route: l 21:14: IVP, Drug Forman 00 form: INJ, Q4H, PRN Severe Pain, Start date: 09/01/11 16:14:00, Stop date: 10/01/11 16:13:00 Lactated 2011-0 No Cesar 1,000 mL, Me moria Ringers IV 3- Manuel [place] Rate: 100 l 1,000 mL 19:03: ml/hr, Forman 00 Infuse over: 10 hr, Route: IV, Dosing Weight 68.182 kg, Total Volume: 1,000, Start date: 09/01/11 14:03:00, Duration: 30 day, Stop date: 10/01/11 14:02:00 Lactated 2012-0 No Cesar 1,000 mL, Me moria Ringers IV 3-13 Manuel [place] Rate: 100 l 1,000 mL 19:03: ml/hr, Forman 00 Infuse over: 10 hr, Route: IV, Dosing Weight 68.182 kg, Total Volume: 1,000, Start date: 09/01/11 14:03:00, Duration: 30 day, Stop date: 10/01/11 14:02:00 Lactated 2012-0 No Cesar 1,000 mL, Me moria Ringers IV 3-13 Manuel [place] Rate: 100 l 1,000 mL 19:03: ml/hr, Forman 00 Infuse over: 10 hr, Route: IV, Dosing Weight 68.182 kg, Total Volume: 1,000, Start date: 09/01/11 14:03:00, Duration: 30 day, Stop date: 10/01/11 14:02:00 Lactated 2011-0 No Cesar 1,000 mL, Me moria Ringers IV 3-13 Manuel [place] Rate: 100 l 1,000 mL 19:03: ml/hr, Vin 00 Infuse over: 10 hr, Route: IV, Dosing Weight 68.182 kg, Total Volume: 1,000, Start date: 09/01/11 14:03:00, Duration: 30 day, Stop date: 10/01/11 14:02:00 Lactated 2011-0 No Cesar 1,000 mL, Me moria Ringers IV 3-13 Manuel [place] Rate: 100 l 1,000 mL 19:03: ml/hr, [...] Stop date: 09/02/11 6:41:00 Lactated 2012-0 No Endi 2,000 mL, Mendoza janice Ringers 3-13 Madden [...] Madden 0.08 mL, l 15:28: Gurinder Route: Forman 00 SUB-Q, Drug form: SOLN, ONCE, Priority: [...] Madden 0.08 mL, l 15:28: Gurinder Route: Forman 00 SUB-Q, Drug form: SOLN, ONCE, Priority: STAT, Start date: 09/01/11 10:28:00, Stop date: 09/01/11 10:28:00 Insulin 2012-0 No [place] 8 unit, Memoria regular 3-13 Madden 0.08 mL, l 15:28: Gurinder Route: Forman 00 SUB-Q, Drug form: SOLN, ONCE, Priority: [...] L 1,000 mL, M emoria Chloride 3-13 [place] Rate: l 0.9% 10:41: 1,000 Vin (Bolus) [...] 3-13 [place] Rate: l 0.9% 10:41: 1,000 Forman (Bolus) IV 00 ml/hr, 1000 mL Infuse [...] L 1,000 mL, M emoria Chloride 3-13 [place] Rate: l 0.9% 10:41: 1,000 Forman (Bolus) IV 00 ml/hr, 1000 mL Infuse over: 1 hr, Route: IV, Dosing Weight 68.182 kg, Total Volume: 1,000, Bolus Dose, Priority: STAT, Start date: 09/01/11 5:41:00, Duration: 1 doses or times, Stop date: 09/01/11 6:40:00 ondansetron 2011-0 No Bee L 4 mg, Memoria 3-13 [place] Route: l 09:06: IVP, Drug Forman 00 form: INJ, ONCE, Priority: STAT, Start date: 09/01/11 4:06:00, Stop date: 09/01/11 4:06:00 morphine 2011-0 No Bee L 4 mg, Mem oria Sulfate 3- [place] Route: l 09:06: IVP, ONCE, Forman 00 Priority: STAT, Start date: 09/01/11 4:06:00, Stop date: 09/01/11 4:06:00 ondansetron 2011-0 No Bee L 4 mg, Memoria 3-13 [place] Route: l 09:06: IVP, Drug Vin 00 form: INJ, ONCE, Priority: STAT, Start date: 09/01/11 4:06:00, Stop date: 09/01/11 4:06:00 morphine 2011-0 No Bee L 4 mg, Mem oria Sulfate 3-13 [place] Route: l 09:06: IVP, ONCE, Forman 00 Priority: STAT, Start date: 09/01/11 4:06:00, Stop date: 09/01/11 4:06:00 ondansetron 2011-0 No Bee L 4 mg, Memoria 3-13 [place] Route: l 09:06: IVP, Drug Forman 00 form: INJ, ONCE, Priority: STAT, Start date: 09/01/11 4:06:00, Stop date: 09/01/11 4:06:00 morphine 2011-0 No Bee L 4 mg, Mem oria Sulfate 3-13 [place] Route: l 09:06: IVP, ONCE, Forman 00 Priority: STAT, Start date: 09/01/11 4:06:00, Stop date: 09/01/11 4:06:00 ondansetron 2012-0 No Bee L 4 mg, Memoria 3-13 [place] Route: l 09:06: IVP, Drug Vin 00 form: INJ, ONCE, Priority: STAT, Start date: 09/01/11 4:06:00, Stop date: 09/01/11 4:06:00 morphine 2012-0 No Bee L 4 mg, Mem oria Sulfate 3-13 [place] Route: l 09:06: IVP, ONCE, Vin 00 [...] L 1,000 mL, M emoria Chloride 3- [place] Rate: l 0.9% 08:42: 1,000 Forman (Bolus) IV 00 ml/hr, 1000 mL Infuse over: 1 hr, Route: IV, Dosing Weight 68.182 kg, Total Volume: 1,000, Bolus Dose, Priority: STAT, Start date: 09/01/11 3:42:00, Duration: 1 doses or times, Stop date: 09/01/11 4:41:00 Sodium 2011-0 No Bee L 1,000 mL, M emoria Chloride - [place] Rate: l 0.9% 08:42: 1,000 Forman (Bolus) IV 00 ml/hr, 1000 mL Infuse over: 1 hr, Route: IV, Dosing Weight 68.182 kg, Total Volume: 1,000, Bolus Dose, Priority: STAT, Start date: 09/01/11 3:42:00, Duration: 1 doses or times, Stop date: 09/01/11 4:41:00 Sodium 2011-0 No Bee L 1,000 mL, M emoria Chloride - [place] Rate: l 0.9% 08:42: 1,000 Forman (Bolus) IV 00 ml/hr, 1000 mL Infuse over: 1 hr, Route: IV, Dosing Weight 68.182 kg, Total Volume: 1,000, Bolus Dose, Priority: STAT, Start date: 09/01/11 3:42:00, Duration: 1 doses or times, Stop date: 09/01/11 4:41:00 Insulin 2011-0 No Bee L 8 unit, Me moria regular 3-13 [place] 0.08 mL, l 08:30: Route: Vin 00 IVP, Drug form: SOLN, ONCE, Priority: STAT, Start date: 09/01/11 3:30:00, Stop date: 09/01/11 3:30:00 Insulin 2012-0 No Bee L 8 unit, Me moria regular 3-13 [place] 0.08 mL, l 08:30: Route: Vin 00 IVP, Drug form: SOLN, ONCE, Priority: STAT, Start date: 09/01/11 3:30:00, Stop date: 09/01/11 3:30:00 Insulin 2012-0 No Bee L 8 unit, Me moria regular 3-13 [place] 0.08 mL, l 08:30: Route: Forman 00 IVP, Drug form: SOLN, ONCE, Priority: STAT, Start date: 09/01/11 3:30:00, Stop date: 09/01/11 3:30:00 Insulin 2011-0 No Bee L 8 unit, Me moria regular 3-13 [place] 0.08 mL, l 08:30: Route: Vin 00 IVP, Drug form: SOLN, ONCE, Priority: STAT, Start date: 09/01/11 3:30:00, Stop date: 09/01/11 3:30:00 Insulin 2012-0 No Bee L 8 unit, Me moria regular 3-13 [place] 0.08 mL, l 08:30: Route: Forman 00 IVP, Drug form: SOLN, ONCE, Priority: STAT, Start date: 09/01/11 3:30:00, Stop date: 09/01/11 3:30:00 Sodium 2011-0 No Bee L 1,000 mL, M emoria Chloride 3-13 [place] Rate: l 0.9% 07:29: 1,000 Forman (Bolus) IV 00 ml/hr, 1,000 mL Infuse over: 1 hr, Route: IV, Dosing Weight 68.182 kg, Total Volume: 1,000, Bolus Dose, Priority: STAT, Start date: 09/01/11 2:29:00, Duration: 1 doses or times, Stop date: 09/01/11 3:28:00 Sodium 2011-0 No Bee L 1,000 mL, M emoria Chloride 3-13 [place] Rate: l 0.9% 07:29: 1,000 Forman (Bolus) IV 00 ml/hr, 1,000 mL Infuse over: 1 hr, Route: IV, Dosing Weight 68.182 kg, Total Volume: 1,000, Bolus Dose, Priority: STAT, Start date: 09/01/11 2:29:00, Duration: 1 doses or times, Stop date: 09/01/11 3:28:00 Sodium 2011-0 No Bee L 1,000 mL, M emoria Chloride 08-31 [place] Rate: l 0.9% 07:29: 1,000 Forman (Bolus) IV 00 ml/hr, 1,000 mL Infuse over: 1 hr, Route: IV, Dosing Weight 68.182 kg, Total Volume: 1,000, Bolus Dose, Priority: STAT, Start date: 09/01/11 2:29:00, Duration: 1 doses or times, Stop date: 09/01/11 3:28:00 Sodium 2011-0 No Bee L 1,000 mL, M emoria Chloride 08-31 [place] Rate: l 0.9% 07:29: 1,000 Forman (Bolus) IV 00 ml/hr, 1,000 mL Infuse over: 1 hr, Route: IV, Dosing Weight 68.182 kg, Total Volume: 1,000, Bolus Dose, Priority: STAT, Start date: 09/01/11 2:29:00, Duration: 1 doses or times, Stop date: 09/01/11 3:28:00 Sodium 2011-0 No Bee L 1,000 mL, M emoria Chloride 08-31 [place] Rate: l 0.9% 07:29: 1,000 Forman (Bolus) IV 00 ml/hr, 1,000 mL Infuse [...] 3-04 [place] tab, l 15:00: Route: PO, Forman 00 Drug form: ERTAB, BID, Start date: [...] Akmal SUB-Q, l units/mL 14:42: BID, 3 Forman subcutaneou 04 vial, 3, s injection 3, Substituti on Allowed, SUSP Novolin N Yes Brooks Noam 18 Units, Memoria 100 3-04 [place] SUB-Q, l units/mL 14:42: BID, 3 Vin subcutaneou 04 vial, 3, s injection 3, Substituti on Allowed, SUSP Novolin N Yes Brooks Noam 18 Units, Memoria 100 3-04 [place] SUB-Q, l units/mL 14:42: BID, 3 Forman subcutaneou 04 vial, 3, s injection 3, Substituti on Allowed, SUSP Novolin N Yes Brooks Noam 18 Units, Memoria 100 3-04 [place] SUB-Q, l units/mL 14:42: BID, 3 Vin subcutaneou 04 vial, 3, s injection 3, Substituti on Allowed, SUSP Novolin N Yes Brooks Noam 18 Units, Memoria 100 3-04 [place] SUB-Q, l units/mL 14:42: BID, 3 Forman subcutaneou 04 vial, 3, s injection 3, Substituti on Allowed, SUSP insulin Yes Brooks Noam 5 Units, Memoria regular 3-04 [place] SUB-Q, l human 14:40: TID, 30 Forman recombinant 10 vial, 3, 100 3, units/mL Substituti injectable on solution Allowed, before breakfast lunch and dinner, SOLNbefore breakfast lunch and dinner insulin Yes Brooks Noam 5 Units, Memoria regular 3-04 [place] SUB-Q, l human 14:40: TID, 30 Forman recombinant 10 vial, 3, 100 3, units/mL [...] Akmal SUB-Q, l human 14:40: TID, 30 Forman recombinant 10 vial, 3, 100 3, units/mL Substituti injectable on solution Allowed, before breakfast lunch and dinner, SOLNbefore breakfast lunch and dinner insulin Yes Brooks Noam 5 Units, Memoria regular 3-04 [place] SUB-Q, l human 14:40: TID, 30 Forman recombinant 10 vial, 3, 100 3, units/mL Substituti injectable on solution Allowed, before breakfast lunch and dinner, SOLNbefore breakfast lunch and dinner potassium No Brooks Noam 20 mEq, Memoria chloride 3-04 [place] 100 mL, l 14:00: Route: Forman 00 IVPB, Drug form: INJ, Q2H, Start date: 08/23/11 8:00:00, Duration: 2 doses or times, Stop date: 08/23/11 10:00:00 potassium 2011-0 No Brooks Noam 20 mEq, Memoria chloride 3-04 [place] 100 mL, l 14:00: Route: Forman 00 IVPB, Drug form: INJ, Q2H, Start date: 08/23/11 8:00:00, Duration: 2 doses or times, Stop date: 08/23/11 10:00:00 potassium 2011-0 No Brooks Noam 20 mEq, Memoria chloride 3-04 [place] 100 mL, l 14:00: Route: Forman 00 IVPB, Drug form: INJ, Q2H, Start [...] chloride 3-04 [place] Route: l 13:28: IVPB, Forman ONCE, Priority: STAT, Start date: 08/23/11 7:28:00, Stop date: 08/23/11 7:28:00 calcium 2011-0 No Brooks Noam 1 gm, Mem oria chloride 3-04 [place] Route: l 13:28: IVPB, Forman ONCE, Priority: STAT, Start date: 08/23/11 7:28:00, [...] Stop date: 08/23/11 7:28:00 potassium 0 No Brooks Noam 40 mEq, Memoria chloride 3-04 [place] Route: IV, l 12:29: ONCE, Vin 00 Start date: 08/23/11 6:29:00, Stop date: 08/23/11 6:29:00 potassium 0 No Brooks Noam 40 mEq, Memoria chloride [...] Stop date: 08/23/11 6:29:00 potassium 0 No Brooks Noam 40 mEq, Memoria chloride 3-04 [place] Route: IV, l 12:29: ONCE, Vin 00 Start date: 08/23/11 6:29:00, Stop date: 08/23/11 6:29:00 potassium 2012-0 No Brooks Noam 60 mEq, [...] [place] mL, Route: l 12:26: IVPB, Drug Forman 00 form: INJ, ONCE, Total dose = 2 gm, Start date: 08/23/11 6:26:00, Duration: 1 doses or times, Stop date: 08/23/11 6:26:00 magnesium 2011-0 No Brooks Noam 2 gm, 50 Memoria sulfate 3-04 [place] mL, Route: l 12:26: IVPB, Drug Forman 00 form: INJ, ONCE, Total dose = 2 gm, Start date: 08/23/11 6:26:00, Duration: 1 doses or times, Stop date: 08/23/11 6:26:00 magnesium 2011-0 No Brooks Noam 2 gm, 50 Memoria sulfate 3-04 [place] mL, Route: l 12:26: IVPB, Drug Forman 00 form: INJ, ONCE, Total dose = [...] or times, Stop date: 08/22/11 10:26:00 magnesium 2012-0 No [place] 2 gm, 50 Me moria sulfate 3-03 [place] mL, Route: l 16:26: Ahmed IVPB, Drug Jake n 00 form: INJ, ONCE, Total dose = 2 gm, Start date: 08/22/11 10:26:00, Duration: 1 doses or times, Stop date: 08/22/11 10:26:00 magnesium 2012-0 No [place] 2 gm, 50 Me moria sulfate 3-03 [place] mL, Route: l 16:26: Ahmed IVPB, Drug Jake n 00 form: INJ, ONCE, Total dose = 2 gm, Start date: 08/22/11 10:26:00, Duration: 1 doses or times, Stop date: 08/22/11 10:26:00 magnesium 2012-0 No [place] 2 gm, 50 Me moria sulfate 3-03 [place] mL, Route: l 16:26: Ahmed IVPB, Drug Jake n 00 form: INJ, ONCE, Total dose = 2 gm, Start date: 08/22/11 10:26:00, Duration: 1 doses or times, Stop date: 08/22/11 10:26:00 calcium 2011-0 No [place] 1,000 mg, Mem oria gluconate 3-03 [place] 10 mL, l 16:25: Ahmed Route: Forman 00 IVPB, ONCE, Start date: 08/22/11 10:25:00, [...] Rodriguez 10 mL, l 16:25: Ahmed Route: Forman 00 IVPB, ONCE, Start date: 08/22/11 10:25:00, [...] Akmal mL, Route: l 13:26: IVPB, Drug Forman 00 form: INJ, ONCE, Total dose = 2 gm, Start date: 08/22/11 7:26:00, Duration: 1 doses or times, Stop date: 08/22/11 7:26:00 magnesium 2011-0 No Brooks Noam 2 gm, 50 Memoria sulfate 3-03 [place] mL, Route: l 13:26: IVPB, Drug Forman 00 form: INJ, ONCE, Total dose = 2 gm, Start date: 08/22/11 7:26:00, Duration: 1 doses or times, Stop date: 08/22/11 7:26:00 magnesium 2011-0 No Brooks Noam 2 gm, 50 Memoria sulfate 3-03 [place] mL, Route: l 13:26: IVPB, Drug Forman 00 form: INJ, ONCE, Total dose = 2 gm, Start date: 08/22/11 7:26:00, Duration: 1 doses or times, Stop date: 08/22/11 7:26:00 magnesium 2011-0 No Brooks Noam 2 gm, 50 Memoria sulfate 3-03 [place] mL, Route: l 13:26: IVPB, Drug Forman 00 form: INJ, ONCE, Total dose = [...] 3-02 [place] tab, l 15:00: Route: PO, Forman Drug form: TAB, Daily, Start date: 08/21/11 [...] Duration: 30 day, Stop date: 09/20/11 8:42:00 Felipedon 2011-0 No Yury 60 mg, 3 Mendoza [...] mL, Route: l 17:15: Ahmed IVP, Drug Forman 00 form: INJ, Q8H, PRN Nausea, Start [...] mL, Route: l 17:15: Ahmed IVP, Drug Forman 00 form: INJ, Q8H, PRN Nausea, Start [...] 2011-0 No Yury 10 unit, Mem oria is[employer] 3 [place] Route: l H 16:00: Rivero SUB-Q, Nidia nn 00 ONCE, Start date: 08/20/11 10:00:00, Stop date: 08/20/11 10:00:00 insulin 2011-0 No Yury 10 unit, Mem oria isophane[employer] 3 [place] Route: l H 16:00: Rivero SUB-Q, Nidia nn 00 ONCE, Start date: 08/20/11 10:00:00, Stop date: 08/20/11 10:00:00 insulin 2012-0 No Yury 10 unit, Mem oria is[employer]ane[employer] 08-19 [place] Route: l H 16:00: Rivero SUB-Q, Nidia nn 00 ONCE, Start date: 08/20/11 10:00:00, Stop date: 08/20/11 10:00:00 insulin 2012-0 No Yury 10 unit, Mem oria is[employer]ane[employer] 08-19 [place] Route: l H 16:00: Rivero SUB-Q, Nidia nn 00 ONCE, Start date: 08/20/11 10:00:00, Stop date: 08/20/11 10:00:00 insulin 2012-0 No Yury 10 unit, Mem oria isophane[employer] - [place] Route: l H 16:00: Rivero [...] 3-01 tab, PO, l tablet 15:37: Bedtime, Forman 27 90 tab, Substituti on Allowed, TAB benztropine 2012-0 Yes 1 mg, 1 Mem oria 1 mg oral 3-01 tab, PO, l tablet 15:35: BID, 60 Vin 25 tab, Substituti on Allowed, TAB benztropine 2012-0 Yes 1 mg, 1 Mem oria 1 mg oral 3- tab, PO, l tablet 15:35: BID, 60 Forman 25 tab, Substituti on Allowed, TAB benztropine 2012-0 Yes 1 mg, 1 Mem oria 1 mg oral 3- tab, PO, l tablet 15:35: BID, 60 Vin 25 tab, Substituti on Allowed, TAB benztropine 2011-0 [...] 2011-0 No Yury 10 unit, Mem oria is[employer] 08-19 [place] Route: l H 15:00: Mat SUB-Q, [...] 2011-0 No Yury 10 unit, Mem oria isoph[employer] 3-01 [place] Route: l H 15:00: Rivero [...] 2011-0 No Yury 10 unit, Mem oria is[employer] 3-01 [place] Route: l H 15:00: Rivero [...] 2011-0 No Yury 10 unit, Mem oria isophane[employer]BER 3- [place] Route: l H 15:00: Rivero [...] 2011-0 No Yury 10 unit, Mem oria isophane[employer] 3-01 [place] Route: l H 15:00: Rivero [...] Yury 20 mEq, Me moria chloride 3-01 [place] 100 mL, l 14:00: Rivero Route: Nidia [...] regular 3-01 [place] 0.06 mL, l 09:38: Mat Route: Nidia nn SUB-Q, Drug form: SOLN, ONCE, Start date: 08/20/11 3:38:00, Stop date: 08/20/11 3:38:00 Insulin 2011-0 No Yury 6 unit, Mendoza janice regular 3-01 [place] 0.06 mL, l 09:38: Mat Route: Nidia nn SUB-Q, Drug form: SOLN, [...] Stop date: 08/20/11 3:38:00 Insulin 2012-0 No Yury 6 unit, Mendoza janice regular [...] regular 3- Akmal SUB-Q, l 09:28: BID, Forman 23 Substituti on Allowed Insulin 2011-0 No Brooks Noam 10 unit, Memoria regular 3- [place] SUB-Q, l 09:28: BID, Vin 23 Substituti on Allowed Insulin 2011-0 No Brooks Noam 10 unit, Memoria regular 3- [place] SUB-Q, l 09:28: BID, Forman 23 Substituti on Allowed Insulin 2011-0 No Brooks Noam 10 unit, Memoria regular 3- [place] SUB-Q, l 09:28: BID, Forman 23 Substituti on Allowed insulin 2011-0 No 10 unit, Memori a is[employer] 3- SUB-Q, l H 09:26: BID, Vin 18 Substituti on Allowed insulin 2011-0 No 10 unit, Memori a is[employer] 3- SUB-Q, l H 09:26: BID, Forman 18 Substituti on Allowed insulin 2011-0 No 10 unit, Memori a is[employer] 3- SUB-Q, l H 09:26: BID, Forman 18 Substituti on Allowed insulin 2011-0 No 10 unit, Memori a is[employer] 3- SUB-Q, l H 09:26: BID, Forman 18 Substituti on Allowed insulin No 10 unit, Brandon a isophane-[employer]BER - SUB-Q, l H 09:26: BID, Vin [...] 3 [place] Rate: 150 l 09:06: ml/hr, Forman 00 Infuse over: 6.7 hr, Route: IV, [...] 3-01 [place] Rate: 150 l 09:06: ml/hr, Forman 00 Infuse over: 6.7 hr, Route: IV, [...] date: 09/19/11 3:05:00 NS 1,000 mL No Didier Noam 1,000 mL, Memoria 3-01 [...] date: 09/18/11 9:00:00 insulin 2012-0 No Yury 18 unit, Mem oria is[employer] 3-01 [place] 0.18 mL, l H 08:58: Rivero Route: Ndiia nn 00 SUB-Q, Drug form: INJ, Q12H, Start date: 08/20/11 2:58:00, Stop date: 09/18/11 21:00:00 insulin 2012-0 No Yury 18 unit, Mem oria is[employer]ane[employer] 3-01 [place] 0.18 mL, l H 08:58: Rivero Route: Nidia nn 00 SUB-Q, Drug form: INJ, Q12H, Start date: 08/20/11 2:58:00, Stop date: 09/18/11 21:00:00 insulin 2011-0 No Yury 18 unit, Mem oria is[employer] 3-01 [place] 0.18 mL, l H 08:58: Rivero Route: Nidia nn SUB-Q, Drug form: INJ, Q12H, Start date: 08/20/11 2:58:00, Stop date: 09/18/11 21:00:00 insulin 2011-0 No Yury 18 unit, Mem oria is[employer] 3-01 [place] 0.18 mL, l H 08:58: Rivero Route: Nidia nn SUB-Q, Drug form: INJ, Q12H, Start date: 08/20/11 2:58:00, Stop date: 09/18/11 21:00:00 insulin 2011-0 No Yury 18 unit, Mem oria is[employer]ane[employer] 3-01 [place] 0.18 mL, l H 08:58: [...] 2011-0 [facility]- [place] mL, Route: l [...] 2011-0 No [facility] 25 [facility], [facility] 3-01 [place] mL, [...] 30 day, Stop date: 09/19/11 2:47:00 Dextrose 2012-0 No Yury 25 gm, 50 M emoria [...] 3:45:00 Dextrose No Yury 25 gm, 50 emoria 50% Syringe 3-01 [place] ml, Route: [...] 3:45:00 ondansetron No [facility] [place] Route: l 07:42: Dawson IVP, Drug Herm naeem 00 Pu form: INJ, ONCE, Priority: STAT, Start date: 08/20/11 1:42:00, Stop date: 08/20/11 1:42:00 ondansetron 2011-0 No Hughes-Jason 4 mg, M emoria 08-19 [place] Route: l 07:42: Dawson IVP, Drug Herm naeem 00 Pu form: INJ, ONCE, Priority: STAT, Start date: 08/20/11 1:42:00, Stop date: 08/20/11 1:42:00 ondansetron 2011-0 No Hughes-Jason 4 mg, M emoria 08-19 [place] Route: l 07:42: Dawson IVP, Drug Herm naeem 00 Pu form: INJ, ONCE, Priority: STAT, Start date: 08/20/11 1:42:00, Stop date: 08/20/11 1:42:00 ondansetron 2011-0 No Hughes-Jason 4 mg, M emoria 08-19 [place] Route: l 07:42: Dawson IVP, Drug Herm naeem 00 Pu form: INJ, ONCE, Priority: STAT, Start date: 08/20/11 1:42:00, Stop date: 08/20/11 1:42:00 ondansetron 2011-0 No Hughes-Jason 4 mg, M emoria 08-19 [place] Route: l 07:42: Dawson IVP, Drug Herm naeem 00 Pu form: INJ, ONCE, Priority: STAT, Start date: 08/20/11 1:42:00, Stop date: 08/20/11 1:42:00 GI cocktail 0 No Hughes-Jason 30 ml, Memoria 08-19 [place] Route: PO, l 05:12: Dawson Drug Form: Her braden 00 Pu SUSP, ONCE, STAT, Start date: 08/19/11 23:12:00, Stop date: 08/19/11 23:12:00 GI cocktail 2011-0 No Hughes-Jason 30 ml, Memoria 08-19 [place] Route: PO, l 05:12: Dawson Drug Form: Her braden 00 Pu SUSP, ONCE, STAT, Start date: 08/19/11 23:12:00, Stop date: 08/19/11 23:12:00 GI cocktail 2011-0 No Hughes-Jason 30 ml, Memoria 08-19 [place] Route: PO, l 05:12: Dawson Drug Form: Her braden 00 Pu SUSP, ONCE, STAT, Start date: 08/19/11 23:12:00, Stop date: 08/19/11 23:12:00 GI cocktail 2011-0 No Hughes-Jason 30 ml, Memoria 08-19 [place] Route: PO, l 05:12: Dawson Drug Form: Her braden 00 Pu SUSP, ONCE, STAT, Start date: 08/19/11 23:12:00, Stop date: 08/19/11 23:12:00 GI cocktail 2011-0 No Hughes-Jason 30 ml, Memoria 08-19 [place] Route: PO, l 05:12: Dawson Drug Form: Her braden 00 Pu SUSP, ONCE, STAT, Start date: 08/19/11 23:12:00, Stop date: 08/19/11 23:12:00 ondansetron 2011-0 No Hughes-Jason 4 mg, M emoria 08-19 [place] Route: PO, l 05:10: Dawson Drug form: Her braden 00 Pu TABDIS, ONCE, Priority: STAT, Start date: 08/19/11 23:10:00, Stop date: 08/19/11 23:10:00 Lactated 2011-0 No Hughes-Jason 1,000 mL, Memoria Ringers - [place] Rate: l (Bolus) IV 05:10: Dawson 1,000 He rmann 1000 mL 00 Pu ml/hr, Infuse over: 1 hr, Route: IV, Total Volume: 1,000, Bolus Dose, Priority: STAT, Start date: 08/19/11 23:10:00, Duration: 1 doses or times, Stop date: 08/20/11 0:09:00 ondansetron 2011-0 No Hughes-Jason 4 mg, M emoria 08-19 [place] Route: PO, l 05:10: Dawson Drug form: Her braden 00 Pu TABDIS, ONCE, Priority: STAT, Start date: 08/19/11 23:10:00, Stop date: 08/19/11 23:10:00 Lactated 2011-0 No Hughes-Jason 1,000 mL, Memoria Ringers 3- [place] Rate: l (Bolus) IV 05:10: Dawson 1,000 He rmann 1000 mL 00 Pu ml/hr, Infuse over: 1 hr, Route: IV, Total Volume: 1,000, Bolus Dose, Priority: STAT, Start date: 08/19/11 23:10:00, Duration: 1 doses or times, Stop date: 08/20/11 0:09:00 ondansetron 2012-0 No Hughes-Jason 4 mg, M emoria 3- [place] Route: PO, l 05:10: Dawson Drug form: Her braden 00 Pu TABDIS, ONCE, Priority: STAT, Start date: 08/19/11 23:10:00, Stop date: 08/19/11 23:10:00 Lactated 2011-0 No Hughes-Jason 1,000 mL, Memoria Ringers 3- [place] Rate: l (Bolus) IV 05:10: Dawson 1,000 He rmann 1000 mL 00 Pu ml/hr, Infuse over: 1 hr, Route: IV, Total Volume: 1,000, Bolus Dose, Priority: STAT, Start date: 08/19/11 23:10:00, Duration: 1 doses or times, Stop date: 08/20/11 0:09:00 ondansetron 2012-0 No Hughes-Jason 4 mg, M emoria 3 [place] Route: PO, l 05:10: Dawson Drug form: Her braden 00 Pu TABDIS, ONCE, Priority: STAT, Start date: 08/19/11 23:10:00, Stop date: 08/19/11 23:10:00 Lactated 2011-0 No Hughes-Jason 1,000 mL, Memoria Ringers 3- [place] Rate: l (Bolus) IV 05:10: Dawson 1,000 He rmann 1000 mL 00 Pu ml/hr, Infuse over: 1 hr, Route: IV, Total Volume: 1,000, Bolus Dose, Priority: STAT, Start date: 08/19/11 23:10:00, Duration: 1 doses or times, Stop date: 08/20/11 0:09:00 ondansetron 2011-0 No Hughes-Jason 4 mg, M emoria 3- [place] Route: PO, l 05:10: Dawson Drug form: Her braden 00 Pu TABDIS, ONCE, Priority: STAT, Start date: 08/19/11 23:10:00, Stop date: 08/19/11 23:10:00 Lactated 2011-0 No Hughes-Jason 1,000 mL, Memoria Ringers - [place] Rate: l (Bolus) IV 05:10: Dawson 1,000 He rmann 1000 mL 00 Pu ml/hr, Infuse over: 1 hr, Route: IV, Total Volume: 1,000, Bolus Dose, Priority: STAT, Start date: 08/19/11 23:10:00, Duration: 1 doses or times, Stop date: 08/20/11 0:09:00 Insulin 2011-0 No Hughes-Jason 7 unit, Mem oria regular 3- [place] 0.07 mL, l 04:15: Dawson Route: Forman Pu SUB-Q, Drug form: SOLN, ONCE, Priority: STAT, Start date: 08/19/11 22:15:00, Stop date: 08/19/11 22:15:00 Insulin 2011-0 No Hughes-Jason 7 unit, Mem oria regular 3- [place] 0.07 mL, l 04:15: Dawson Route: Vin Pu SUB-Q, Drug form: SOLN, ONCE, Priority: STAT, Start date: 08/19/11 22:15:00, Stop date: 08/19/11 22:15:00 Insulin 2011-0 No Hughes-Jason 7 unit, Mem oria regular 3- [place] 0.07 mL, l 04:15: Dawson Route: Vin Pu SUB-Q, Drug form: SOLN, ONCE, Priority: STAT, Start date: 08/19/11 22:15:00, Stop date: 08/19/11 22:15:00 Insulin 2011-0 No Hughes-Jason 7 unit, Mem oria regular 3-01 [place] 0.07 mL, l 04:15: Dawson Route: Vin Pu SUB-Q, Drug form: SOLN, ONCE, Priority: STAT, Start date: 08/19/11 22:15:00, Stop date: 08/19/11 22:15:00 Insulin 2011-0 No Hughes-Jason 7 unit, Mem oria regular 3-01 [place] 0.07 mL, l 04:15: Dawson Route: Forman 00 Pu SUB-Q, Drug form: SOLN, ONCE, Priority: STAT, Start date: 08/19/11 22:15:00, Stop date: 08/19/11 22:15:00 Geodon 60 2011-0 No Yury 60 mg, 1 M emoria mg oral 2-29 [place] cap, PO, l capsule 23:24: Rivero BID, 180 Forman 43 cap, Substituti on Allowed, CAP Geodon [...] PO, l capsule 23:24: Rivero BID, 180 Forman 43 cap, Substituti on Allowed, CAP Geodon 60 2011-0 No Yury 60 mg, 1 M emoria mg oral 2-29 [place] cap, PO, l capsule 23:24: Rivero BID, 180 Vin 43 cap, Substituti on Allowed, CAP trazodone 2011-0 No 300 mg, 1 Mem oria 300 mg oral 2-29 tab, PO, l tablet 23:23: Bedtime, Forman 58 15 tab, Substituti on Allowed, TAB trazodone 2012-0 No 300 mg, 1 Mem oria 300 mg oral 2-29 tab, PO, l tablet 23:23: Bedtime, Forman 58 15 tab, Substituti on Allowed, TAB trazodone 2012-0 No 300 mg, 1 Mem oria 300 mg oral 2-29 tab, PO, l tablet 23:23: Bedtime, Vin 58 15 tab, Substituti on Allowed, TAB trazodone 2012-0 No 300 mg, 1 Mem oria 300 mg oral 2-29 tab, PO, l tablet 23:23: Bedtime, Forman 58 15 tab, Substituti on Allowed, TAB trazodone 2012-0 No 300 mg, 1 Mem oria 300 mg oral 2-29 tab, PO, l tablet 23:23: Bedtime, Forman 58 15 tab, Substituti on Allowed, TAB Effexor XR 2011-0 Yes Yury 75 mg, 1 Memoria 75 mg oral 2-29 [place] cap, PO, l capsule, 23:22: Rivero Daily, 30 Forman extended 24 cap, release Substituti on Allowed Effexor XR 2011-0 Yes Yury 75 mg, 1 Memoria 75 mg oral 2-29 Gato cap, PO, l capsule, 23:22: Rivero Daily, 30 Forman extended 24 cap, release Substituti on Allowed Effexor XR 2011-0 Yes Yury 75 mg, 1 Memoria 75 mg oral 2-29 Gato cap, PO, l capsule, 23:22: Rivero Daily, 30 Forman extended 24 cap, release Substituti on Allowed Effexor XR 2011-0 Yes Yury 75 mg, 1 Memoria 75 mg oral 2-29 Gato cap, PO, l capsule, 23:22: Rivero Daily, 30 Vin extended 24 cap, release Substituti on Allowed Effexor XR 2011-0 Yes Yury 75 mg, 1 Memoria 75 mg oral 2-29 Gato cap, PO, l capsule, 23:22: Rivero Daily, 30 Forman extended 24 cap, release Substituti on Allowed Lactated 2011-0 No Yury 1,000 mL, M emoria Ringers IV - Gato Rate: 250 l 1,000 mL 23:03: Rivero ml/hr, H erm Infuse over: 4 hr, Route: IV, Total Volume: 1,000, Priority: STAT, Start date: 08/19/11 17:03:00, Duration: 30 day, Stop date: 09/18/11 17:02:00 Lactated 2011-0 No Yury 1,000 mL, M emoria Ringers IV - Gato Rate: 250 l 1,000 mL 23:03: [...] No Yury 100 mL, Memor ia Chloride - Gato Rate: l 0.9% 22:17: Rivero Titrate, [...] 08/19/11 15:57:00, Stop date: 08/19/11 15:57:00 Reglan 2012-0 No William 10 mg, Memoria 2-29 Wong [...] Wong Route: IV, l 21:57: Pooja ONCE, Forman 00 Start date: 08/19/11 15:57:00, Stop date: [...] 08/19/11 15:57:00, Stop date: 08/19/11 15:57:00 Reglan 2012-0 No William 10 mg, Memoria 2-29 Wong [...] 2020-06-27 16:33:00 171 mm[Hg] [facility] Diastolic blood 2020-06-27 16:33:00 98 mm[Hg] [facility] Heart rate 2020-06-27 16:33:00 71 /min [facility] Respiratory rate 2020-06-27 16:29:00 19 /min [facility] ers[facility] Body height 2020-06-27 16:29:00 154.9 cm [facility] Body weight 2020-06-27 16:29:00 77.293 kg [facility] BMI 2020-06-27 16:29:00 32.20 kg/m2 [facility] Oxygen saturation in 2020-06-27 16:29:00 99 /min [facility] Arterial blood by [facility] Pulse oximetry Branch Systolic blood 2020-06-27 16:33:00 171 mm[Hg] [facility]iver [facility]ity of pressure [facility] Diastolic blood 2020-06-27 16:33:00 98 mm[Hg] [facility]ive rsity of pressure [facility] Heart rate 2020-06-27 16:33:00 71 /min [facility] Respiratory rate 2020-06-27 16:29:00 19 /min Univ ers[facility] of [facility] Body height 2020-06-27 16:29:00 154.9 cm Universi ty [facility] Body weight 2020-06-27 16:29:00 77.293 kg Universi ty [facility] BMI 2020-06-27 16:29:00 32.20 kg/m2 Universi ty [facility] Oxygen saturation in 2020-06-27 16:29:00 99 /min University of Arterial blood by [facility] Pulse oximetry Branch Height/Length 2021-07-08 11:50:13 154.9 cm Measured Weight Dosing 2021-07-08 11:50:13 85.00 kg Height/Length 2021-07-08 11:47:31 154.9 cm Measured Weight Dosing 2021-07-08 11:47:31 85.00 kg Height/Length 2021-07-08 11:47:20 154.9 cm Measured Weight Dosing 2021-07-08 11:47:20 85.00 kg Systolic blood 2021-07-08 19:43:00 189 mm[Hg] [facility] 2021-07-08 19:43:00 104 mm[facility]Hg[facility] pressure Heart rate 2021-07-08 18:56:00 74 /min [facility] Body temperature 2021-07-08 18:56:00 36.39 Cathleen Meth [facility] Body height 2021-07-08 18:56:00 157.5 cm [facility] Body weight 2021-07-08 18:56:00 72.938 kg [facility] BMI 2021-07-08 18:56:00 29.41 kg/m2 [facility] Oxygen saturation in 2021-07-08 18:56:00 100 /min [facility] Arterial blood by Pulse oximetry Respiratory rate 2021-06-18 16:36:00 11 /min Meth [facility] Systolic (mm Hg) 2021-01-29 20:03:00 Mendoza rial Vin Diastolic (mm Hg) 2021-01-29 20:03:00 Mem orial Forman Systolic (mm Hg) 2021-01-29 19:40:00 Mendoza rial Forman Diastolic (mm Hg) 2021-01-29 19:40:00 Mem orial Vin Systolic (mm Hg) 2021-01-29 18:05:00 Mendoza rial Forman Diastolic (mm Hg) 2021-01-29 18:05:00 Mem orial Forman Respitory Rate 2021-01-29 16:55:00 Memori al Forman Temperature Oral (F) 2021-01-29 16:45:00 97.3 F [facility] Respitory Rate 2021-01-29 16:45:00 Memori al Forman Respitory Rate 2021-01-29 16:30:00 Memori al Vin Temperature Oral (F) 2021-01-29 13:10:00 97.6 F [facility] Systolic (mm Hg) 2021-01-27 05:00:00 Mendoza rial Vin Diastolic (mm Hg) 2021-01-27 05:00:00 Mem orial Vin Systolic (mm Hg) 2021-01-27 04:00:00 Mendoza rial Vin Diastolic (mm Hg) 2021-01-27 04:00:00 Mem orial Forman Systolic (mm Hg) 2021-01-27 03:00:00 Mendoza rial Vin Diastolic (mm Hg) 2021-01-27 03:00:00 Mem orial Forman Respitory Rate 2021-01-26 19:00:00 Memori al Forman Respitory Rate 2021-01-26 18:00:00 Memori al Forman Respitory Rate 2021-01-26 17:00:00 Memori al Forman Temperature Oral (F) 2021-01-22 13:00:00 97.6 F [facility] Vin Height 2021-01-21 18:25:00 149.86 cm [facility] Weight 2021-01-21 18:25:00 [facility] BMI Calculated 2021-01-21 18:25:00 Mem[facility] al Forman Height 2021-01-21 17:09:00 157.48 cm [facility] Height 2021-01-21 13:09:00 157.48 cm [facility] Weight 2021-01-21 13:09:00 [facility] BMI Calculated 2021-01-21 13:09:00 Memori al Vin Heart Rate 2021-01-21 12:50:00 [facility] Systolic (mm Hg) 2020-12-24 15:43:00 Mendoza rial Forman Diastolic (mm Hg) 2020-12-24 15:43:00 Mem orial Vin Heart Rate 2020-12-24 15:43:00 [facility] Height 2020-12-24 15:43:00 154.94 cm [facility] Weight 2020-12-24 15:43:00 [facility] BMI Calculated 2020-12-24 15:43:00 Memori al Vin [...] al Vin Heart Rate 2016-07-30 06:35:00 [facility] Temperature Oral (F) 2016-07-30 06:35:00 97.0 F [facility] Respitory Rate 2016-07-30 06:35:00 Mem[facility] Forman Systolic (mm Hg) 2016-07-30 06:35:00 Mendoza rial Forman Diastolic (mm Hg) 2016-07-30 06:35:00 Mem orial Forman Weight 2016-07-24 02:13:00 [facility] BMI Calculated 2016-07-24 02:13:00 Memori al Vin Height 2016-07-24 02:13:00 160.02 cm [facility] Vin Respitory Rate 2016-06-15 15:00:00 Memori al Forman Systolic (mm Hg) 2016-06-15 15:00:00 Menodza rial Forman Diastolic (mm Hg) 2016-06-15 15:00:00 Mem orial Forman Respitory Rate 2016-06-15 14:00:00 Mem[facility] al Forman Systolic (mm Hg) 2016-06-15 14:00:00 Mendoza rial Vin Diastolic (mm Hg) 2016-06-15 14:00:00 Mem orial Vin Respitory Rate 2016-06-15 13:29:00 Memori al Vin Systolic (mm Hg) 2016-06-15 13:29:00 Mendoza rial Forman Diastolic (mm Hg) 2016-06-15 13:29:00 Mem orial Forman Temperature Oral (F) 2016-06-14 10:56:00 97.1 F [facility] Temperature Oral (F) 2016-06-14 06:55:00 97.1 F [facility] Temperature Oral (F) 2016-06-12 10:00:00 96.8 F [facility] Weight 2016-06-11 04:25:00 [facility] Height 2016-06-11 04:25:00 160.02 cm [facility] BMI Calculated 2016-06-11 04:25:00 Memori al Vin Heart Rate 2016-06-11 02:04:00 [facility] Heart Rate 2016-06-11 00:00:00 [facility] Heart Rate 2016-06-10 20:30:00 [facility] Weight 2016-06-10 16:04:00 [facility] BMI Calculated 2016-06-10 16:04:00 Mem[facility] al Forman Height 2016-06-10 16:04:00 160.02 cm [facility] Temperature Oral (F) 2014-06-26 15:12:00 98.0 F [facility] Systolic (mm Hg) 2014-06-26 15:12:00 Mendoza rial Forman Heart Rate 2014-06-26 15:12:00 [facility] Vin Diastolic (mm Hg) 2014-06-26 15:12:00 Mem orial Vin Respitory Rate 2014-06-26 15:12:00 Memori al Vin Systolic (mm Hg) 2014-06-26 13:53:00 Mendoza rial Forman Diastolic (mm Hg) 2014-06-26 13:53:00 Mem orial Vin Respitory Rate 2014-06-26 13:53:00 Mem[facility] al Forman Temperature Oral (F) 2014-06-26 13:53:00 98.0 F [facility] Temperature Oral (F) 2014-06-26 12:37:00 98.2 F [facility] Respitory Rate 2014-06-26 12:37:00 [facility]an Systolic (mm Hg) 2014-06-26 12:37:00 Mendoza rial Forman Diastolic (mm Hg) 2014-06-26 12:37:00 Mem orial Vin Heart Rate 2014-06-26 09:21:00 [facility] Heart Rate 2014-06-26 06:08:00 [facility] Height 2014-06-26 05:35:00 154.94 cm [facility] Weight 2014-06-26 05:35:00 [facility] BMI Calculated 2014-06-26 05:35:00 [facility] Respitory Rate 2013-04-15 06:10:00 Mem[facility] Forman Diastolic (mm Hg) 2013-04-15 06:10:00 Mem orial Forman Heart Rate 2013-04-15 06:10:00 [facility] Systolic (mm Hg) 2013-04-15 06:10:00 Mendoza rial Vin Temperature Oral (F) 2013-04-15 06:10:00 98.7 F [facility] Respitory Rate 2013-04-15 05:37:00 Memori al Vin Diastolic (mm Hg) 2013-04-15 05:37:00 Mem orial Vin Systolic (mm Hg) 2013-04-15 05:37:00 Mendoza rial Forman Temperature Oral (F) 2013-04-15 05:37:00 98.2 F [facility] Heart Rate 2013-04-15 05:37:00 [facility] Height 2013-04-15 02:06:00 160.02 cm [facility] Weight 2013-04-15 02:06:00 [facility] Temperature Oral (F) 2013-04-15 02:06:00 98.6 F [facility] Respitory Rate 2013-04-15 02:06:00 Memori al Vin Heart Rate 2013-04-15 02:06:00 [facility] Diastolic (mm Hg) 2013-04-15 02:06:00 Mem o[facility] Forman Systolic (mm Hg) 2013-04-15 02:06:00 Mendoza rial Vin Weight 2012-03-14 21:33:00 [facility] Systolic (mm Hg) 2011-12-01 00:33:00 Mendoza rial Vin Respitory Rate 2011-12-01 00:33:00 Memori al Vin Heart Rate 2011-12-01 00:33:00 [facility] Diastolic (mm Hg) 2011-12-01 00:33:00 Mem orial Forman Temperature Oral (F) 2011-12-01 00:33:00 99.6 F [facility] Diastolic (mm Hg) 2011-11-30 21:00:00 Mem orial Vin Heart Rate 2011-11-30 21:00:00 [facility] Respitory Rate 2011-11-30 21:00:00 Memori al Vin Systolic (mm Hg) 2011-11-30 21:00:00 Mendoza rial Vin Temperature Oral (F) 2011-11-30 21:00:00 99.8 F [facility] Respitory Rate 2011-11-30 16:30:00 Memori al Vin Systolic (mm Hg) 2011-11-30 16:30:00 Mendoza rial Forman Diastolic (mm Hg) 2011-11-30 16:30:00 Mem orial Vin Heart Rate 2011-11-30 16:30:00 [facility] Temperature Oral (F) 2011-11-30 16:30:00 99.8 F [facility] Weight 2011-11-29 11:40:00 [facility] Height 2011-11-29 11:40:00 157.48 cm [facility] Weight 2011-11-28 17:16:00 [facility] Weight 2011-09-18 13:30:00 [facility] Height 2011-09-18 13:30:00 154.94 cm [facility] Heart Rate 2011-09-09 13:31:00 [facility] Systolic (mm Hg) 2011-09-09 13:02:00 Mendoza rial Forman Diastolic (mm Hg) 2011-09-09 13:02:00 Mem orial Vin Respitory Rate 2011-09-09 13:02:00 Memori al Vin Temperature Oral (F) 2011-09-09 13:02:00 97.5 F [facility] Diastolic (mm Hg) 2011-09-09 08:00:00 Mem orial Vin Heart Rate 2011-09-09 08:00:00 [facility] Temperature Oral (F) 2011-09-09 08:00:00 98.6 F [facility] Respitory Rate 2011-09-09 08:00:00 Memori al Vin Systolic (mm Hg) 2011-09-09 08:00:00 Mendoza rial Forman Respitory Rate 2011-09-09 04:55:00 Memori al Vin Diastolic (mm Hg) 2011-09-09 04:55:00 Mem orial Vin Systolic (mm Hg) 2011-09-09 04:55:00 Mendoza rial Vin Heart Rate 2011-09-09 04:55:00 [facility] Temperature Oral (F) 2011-09-09 00:55:00 98.7 F [facility] Weight 2011-09-01 19:59:00 [facility] Height 2011-09-01 19:59:00 154.94 cm [facility] Height 2011-09-01 07:01:00 154.94 cm [facility] Weight 2011-09-01 07:01:00 [facility] Respitory Rate 2011-08-23 18:00:00 [facility] Heart Rate 2011-08-23 18:00:00 [facility] Systolic (mm Hg) 2011-08-23 18:00:00 Mendoza rial Vin Diastolic (mm Hg) 2011-08-23 18:00:00 Mem o[facility] Forman Temperature Oral (F) 2011-08-23 18:00:00 97.7 F [facility] Heart Rate 2011-08-23 14:24:00 [facility] Temperature Oral (F) 2011-08-23 14:24:00 98.2 F [facility] Diastolic (mm Hg) 2011-08-23 14:24:00 Mem o[facility] Forman Systolic (mm Hg) 2011-08-23 14:24:00 Mendoza rial Vin Respitory Rate 2011-08-23 14:24:00 Memori al Vin Systolic (mm Hg) 2011-08-23 11:15:00 Mendoza rial Forman Diastolic (mm Hg) 2011-08-23 11:15:00 Mem orial Vin Temperature Oral (F) 2011-08-23 11:00:00 98.3 F [facility] Heart Rate 2011-08-23 11:00:00 [facility] Respitory Rate 2011-08-22 22:00:00 [facility] Height 2011-08-20 09:12:00 154.94 cm [facility] Weight 2011-08-20 09:12:00 [facility] Height 2011-08-19 20:28:00 154.94 cm [facility] Weight 2011-08-19 20:28:00 [facility] Procedures Procedure Date / Time Performing Clinician Source Performed POC GLUCOSE 2021-06-18 17:00:00 Aurelio Schumacher spital HEPATITIS B SURFACE 2021-06-18 14:07[facility] LEV[facility], RANDOM 2021-06-18 13:44:00 Char Viramontes [facility] HC COMPLETE BLD COUNT 2021-06-18 13:44:00 [facility] W/AUTO DIFF BASIC METABOLIC PANEL 2021-06-18 11:27:00 [facility] 2021-06-18 11:27:00 Aurelio Schumacher spital POC GLUCOSE 2021-06-18 08:07:00 Aurelio Schumacher spital HEMODIALYSIS 2021-06-18 06:16:53 Bill Cooper spital POC GLUCOSE 2021-06-18 01:26:00 Aurelio Schumacher spital POC GLUCOSE 2021-06-17 21:58:00 Aurelio Schumacher spital HEMODIALYSIS 2021-06-17 18:25:45 Bill Cooper spital POC GLUCOSE 2021-06-17 17:36:00 Aurelio Schumacher spital POC GLUCOSE 2021-06-17 13:51:00 Aurelio Schumacher spital BASIC METABOLIC PANEL 2021-06-17 11:16:00 [facility] HC COMPLETE BLD COUNT 2021-06-17 11:16:00 [facility] W/AUTO DIFF ESTIMATED GFR 2021-06-17 11:16:00 [facility] POC GLUCOSE 2021-06-17 02:50:00 [facility] CONSULT TO OSTOMY CARE 2021-06-17 00:31:48 [facility] NURSE HC COMPLETE BLD COUNT 2021-06-16 23:31:00 [facility] W/AUTO DIFF BASIC METABOLIC PANEL 2021-06-16 23:31:00 [facility] ESTIMATED GFR 2021-06-16 23:31:00 [facility] POC GLUCOSE 2021-06-16 23:19:00 [facility] OR [place] < 1 HOUR 2021-06-16 22:49:00 Mando Diaz [facility] ANAEROBIC CULTURE 2021-06-16 22:36:00 [facility] FUNGUS CULTURE 2021-06-16 22:36:00 Mando Diaz [facility] AEROBIC CULTURE 2021-06-16 22:36:00 [facility] 2021-06-16 22:36:00 [facility] AN ELECTIVE 2021-06-16 21:30:00 Jocelyne Zepeda [facility] SUPRAGLOTTIC AIRWAY AORTOGRAPHY, POSSIBLE 2021-06-16 21:17:00 Mando Diaz [facility] ANGIOPLASTY Diaz-i POC , URINE 2021-06-16 20:46:00 [facility] POTASSIUM LEVEL 2021-06-16 17:28:00 Isabell Dickerson POC GLUCOSE 2021-06-16 11:39:00 [facility] BASIC METABOLIC PANEL 2021-06-16 10:08:00 [facility] HC COMPLETE BLD COUNT 2021-06-16 10:08:00 [facility] W/AUTO DIFF PROTHROMBIN TIME WITH INR 2021-06-16 10:08:00 [facility] PART[facility] THROMBOPLASTIN 2021-06-16 10:08:00 [facility] TIME (PTT) TYPE AND SCREEN 2021-06-16 10:08:00 [facility] ESTIMATED GFR 2021-06-16 10:08:00 [facility] POC GLUCOSE 2021-06-16 01:59:00 [facility] POC GLUCOSE 2021-06-15 22:58:00 [facility] COVID-19 QUALITATIVE 2021-06-15 19:29:00 [facility] RT-PCR POC GLUCOSE 2021-06-15 17:42:00 [facility] HEMODIALYSIS 2021-06-15 16:17:54 Delfino Akbar [facility] POC GLUCOSE 2021-06-15 15:41:00 [facility] POC GLUCOSE 2021-06-15 13:44:00 [facility] POC GLUCOSE 2021-06-15 13:00:00 [facility] ECG 12-LEAD 2021-06-15 12:48:21 Leni Barker HC COMPLETE BLD COUNT 2021-06-15 11:42:00 [facility] W/AUTO DIFF BASIC METABOLIC PANEL 2021-06-15 11:42:[address] [facility] ESTIMATED GFR 2021-06-15 11:42:00 [facility] POC GLUCOSE 2021-06-15 01:31:00 [facility] US DUPLEX ARTERIAL LOWER 2021-06-14 21:55:33 [facility] EXTREMITY RIGHT POC GLUCOSE 2021-06-14 21:51:00 [facility] POC GLUCOSE 2021-06-14 17:36:00 [facility] POC GLUCOSE 2021-06-14 13:30:00 [facility] POC GLUCOSE 2021-06-14 13:29:00 [facility] HC COMPLETE BLD COUNT 2021-06-14 10:13:[address] [facility] W/AUTO DIFF BASIC METABOLIC PANEL 2021-06-14 10:13:[address] [facility] ESTIMATED GFR 2021-06-14 10:13:00 [facility] POC GLUCOSE 2021-06-14 02:45:00 [facility] POC GLUCOSE 2021-06-13 21:47:00 [facility] POC GLUCOSE 2021-06-13 20:46:00 [facility] CBC WITH PLATELET AND 2021-06-13 16:10:00 [facility] Delfino [facility] DIFFERENTIAL COMPREHENSIVE METABOLIC 2021-06-13 16:10:00 [facility] PANEL ESTIMATED GFR 2021-06-13 16:10:00 [facility] HEMODIALYSIS 2021-06-13 15:26:35 [facility] POC GLUCOSE 2021-06-13 14:30:00 [facility] VANCOMYCIN LEVEL, RANDOM 2021-06-13 10:59:00 Juwan You [facility] POC GLUCOSE 2021-06-13 10:40:00 [facility] POC GLUCOSE 2021-06-13 02:28:[facility] 2021-06-13 00:16[facility]00 [facility] 2021-06-12 23:31:00 [facility] 2021-06-12 23:14:00 [facility] POC GLUCOSE 2021-06-12 18:19:00 [facility] 2021-06-12 14:37[facility] POC GLUCOSE 2021-06-12 14:01:00 [facility] 2021-06-12 03:03:00 Holden Nagel spital [facility] CT HEAD WO CONTRAST 2021-06-12 00:53:00 [facility] 2021-06-11 18:08:00 Holden Nagel spital [place] POC GLUCOSE 2021-06-11 13:39:00 Nagel, Holden hWyte Ho spital [place] HEMODIALYSIS 2021-06-11 12:38:38 Delfino Akbar [facility] POC GLUCOSE 2021-06-11 02:01:00 Holden Nagel Ho spital Ram[facility]rez POC GLUCOSE 2021-06-10 22:15:00 Holden Nagel spital [place] POC GLUCOSE 2021-06-10 17:39:00 Holden Nagel spital [place] POC GLUCOSE 2021-06-10 16:05:00 Holden Nagel spital [place] TISSUE CULTURE 2021-06-10 15:08:00 Juwan You spital GRAM STAIN 2021-06-10 15:08:00 Juwan You spital ANAEROBIC CULTURE 2021-06-10 15:04:00 Juwan You [facility] FUNGUS CULTURE 2021-06-10 15:04:00 Juwan You spital AEROBIC CULTURE 2021-06-10 15:04:00 Juwan You spital AFB CULTURE 2021-06-10 15:04:00 Pati, Juwan Ferrara spital GRAM STAIN 2021-06-10 15:04:00 Pati, Juwan Ferrara spital AFB STAIN 2021-06-10 15:04:00 Pati, Juwan Ferrara spital MS AN ELECTIVE 2021-06-10 14:26:00 Sofi Roach spital SUPRAGLOTTIC AIRWAY Marquita INCISION AND DRAINAGE, 2021-06-10 14:26:00 Pati, [facility] LOWER EXTREMITY HC COMPLETE BLD COUNT 2021-06-10 10:20:00 , [facility] W/AUTO DIFF BASIC METABOLIC PANEL 2021-06-10 10:20:00 , [facility] PROTHROMBIN TIME WITH INR 2021-06-10 10:20:00 [facility] PARTIAL THROMBOPLASTIN 2021-06-10 10:20:00 [facility] TIME (PTT) TYPE AND SCREEN 2021-06-10 10:20:00 Holden Nagel spital Ram[facility] ESTIMATED GFR 2021-06-10 10:20:00 Juwan You spital POC GLUCOSE 2021-06-10 03:11:00 Holden Nagel spital [place] POC GLUCOSE 2021-06-10 01:30:00 Holden Nagel spital [place] POC GLUCOSE 2021-06-09 22:22:00 Holden Nagel spital Ram[facility] POC GLUCOSE 2021-06-09 13:55:00 Holden Nagel spital [place] HEMODIALYSIS 2021-06-09 13:20:01 Delfino Akbar [facility] VANCOMYCIN LEVEL, RANDOM 2021-06-09 11:46:00 Char Viramontes [facility] POC GLUCOSE 2021-06-09 02:06:00 Holden Nagel spital Ram[facility]rez POC GLUCOSE 2021-06-08 22:23:00 Holden Nagel spital [place] POC GLUCOSE 2021-06-08 17:53:00 NagelHolden rodriguez spital [facility] HC COMPLETE BLD COUNT 2021-06-08 16:06:00 [facility] W/AUTO DIFF POC GLUCOSE 2021-06-08 13:56:00 Holden Nagel spital [place] URINE CULTURE 2021-06-08 03:56:00 Holden Nagel spital [place] URINALYSIS SCREEN AND 2021-06-08 03:32:00 [facility] MICROSCOPY, WITH REFLEX TO CULTURE POC GLUCOSE 2021-06-08 01:15:00 Holden Nagel spital [place]rez POC GLUCOSE 2021-06-07 22:07:00 Holden Nagel spital [place] POC GLUCOSE 2021-06-07 18:01:00 Holden Nagel spital Ram[place] BASIC METABOLIC PANEL 2021-06-07 14:15:00 [facility] ESTIMATED GFR 2021-06-07 14:15:00 Holden Nagel spital [place] POC GLUCOSE 2021-06-07 13:56:00 Holden Nagel spital [place] POC GLUCOSE 2021-06-07 02:54:00 Holden Nagel spital [facility] CT LOWER EXTREMITY W 2021-06-07 01:22:59 [facility] CONTRAST RIGHT POC GLUCOSE 2021-06-06 23:50:00 Holden Nagel spital Ram[place]rez POC GLUCOSE 2021-06-06 17:31:00 Holden Nagel spital [place] HEMODIALYSIS 2021-06-06 15:05:52 Delfino Akbar [facility] POC GLUCOSE 2021-06-06 14:03:00 Holden Nagel spital [facility] HC COMPLETE BLD COUNT 2021-06-06 10:31:00 [facility] W/AUTO DIFF BASIC METABOLIC PANEL 2021-06-06 10:31:00 [facility] ESTIMATED GFR 2021-06-06 10:31:00 Holden Nagel spital Ramírez POC GLUCOSE 2021-06-06 10:14:00 Nagel Holden Ferrara spital [place]rez POC GLUCOSE 2021-06-06 06:26:00 Holden Nagel spital [place] POC GLUCOSE 2021-06-06 02:41:00 Nagel Holden Ferrara spital [place]rez POC GLUCOSE 2021-06-05 19:51:00 Robe Holden Ferrara spital Ram[place]rez BASIC METABOLIC PANEL 2021-06-05 18:06:00 [facility] HC COMPLETE BLD COUNT 2021-06-05 18:06:00 [facility] W/AUTO DIFF ESTIMATED GFR 2021-06-05 18:06:00 Holden Nagel spital Ram[facility]rez POC GLUCOSE 2021-06-05 17:48:00 Holden Nagel spital [place] ANAEROBIC CULTURE 2021-06-05 17:10:00 [facility] 2021-06-05 16:59:00 Pati [facility] FUNGUS CULTURE 2021-06-05 16:59:00 Juwan You spital AEROBIC CULTURE 2021-06-05 16:59:00 Pati Juwancaron Whyte spital AFB CULTURE 2021-06-05 16:59:00 Juwan You spital FUNGUS SMEAR 2021-06-05 16:59:00 Juwan You spital AFB STAIN 2021-06-05 16:59:00 Juwan You spital MS AN ELECTIVE 2021-06-05 16:52:08 [facility] SUPRAGLOTTIC AIRWAY TISSUE CULTURE 2021-06-05 16:50:00 Juwan You spital GRAM STAIN 2021-06-05 16:50:00 Juwan You spital DEBRIDEMENT, LOWER 2021-06-05 16:16:00 [facility] EXTREM[facility] POC GLUCOSE 2021-06-05 13:32:00 Holden Nagel spital Ram[facility]rez TROPONIN T 2021-06-05 10:58:00 Wander [facility] ABO AND RH CONFIRMATION BY 2021-06-05 10:54:00 [facility] PROTOCOL Vipin BASIC METABOLIC PANEL 2021-06-05 10:53:00 [facility] HC COMPLETE BLD COUNT 2021-06-05 10:53:00 [facility] W/AUTO DIFF ESTIMATED GFR 2021-06-05 10:53:00 Sivan Stewart [facility] PROTHROMBIN TIME WITH INR 2021-06-05 10:52:00 [facility] PARTIAL THROMBOPLASTIN 2021-06-05 10:52:00 [facility] TIME (PTT) HCG QUALITATIVE, SERUM 2021-06-05 10:52:00 Myron Fernandes [facility] SCREEN POC GLUCOSE 2021-06-05 09:40:00 Rachel Brasher Ho spital Vipin BLOOD CULTURE, AEROBIC & 2021-06-05 08:27:00 Rachel Brasher [facility] ANAEROBIC Vipin POC GLUCOSE 2021-06-05 07:42:00 Rachel Brasher Ho spital Vip[place] POC GLUCOSE 2021-06-05 06:57:00 Rachel Brasher Ho spital Vip[place] POC GLUCOSE 2021-06-05 06:10:00 Holden Nagel spigabe Ramírez BLOOD CULTURE, AEROBIC & 2021-06-05 04:31:00 Rachel Brasher [facility] ANAEROBIC Vipin POC GLUCOSE 2021-06-05 04:04:00 Rachel Brasher Ho spital Vipin POC GLUCOSE 2021-06-05 03:51:00 Rachel Brasher spigabe Lew TYPE AND SCREEN 2021-06-05 03:40:00 Rachel Brasher Ho spital [place] POC GLUCOSE 2021-06-05 03:05:00 Rachel Brasher Ho spital Vipin POC GLUCOSE 2021-06-05 02:23:00 Rachel Brasher COVID-19 QUALITATIVE 2021-06-05 02:08:00 [facility] HC COMPLETE BLD COUNT 2021-06-05 01:24:00 Sivan Stewart [facility] W/AUTO DIFF PROTHROMBIN TIME WITH INR 2021-06-05 01:24:00 [facility] PARTIAL THROMBOPLASTIN 2021-06-05 01:24:00 Erniethomas hospitalSivan [facility] TIME (PTT) COMPREHENSIVE METABOLIC 2021-06-05 01:24:00 [facility] System[facility]et[facility] PANEL CREATINE KINASE, TOTAL 2021-06-05 01:24:00 [facility] System[facility] (CPK) B NATRIURETIC PEPTIDE 2021-06-05 01:24:00 Erniethomas hospitalSivan [facility] TROPONIN T 2021-06-05 01:24:00 Char Viramontes [facility] ospital ESTIMATED GFR 2021-06-05 01:24:00 [facility] ECG ED PRELIMINARY 2021-06-05 00:31:28 [facility] INTERPRETATION ECG 12-LEAD 2021-06-05 00:19:17 Rachel Brasher POC GLUCOSE 2021-05-25 18:04:00 Awe, [facility] POC GLUCOSE 2021-05-25 14:00:00 Awe, [facility] CBC HEMOGRAM 2021-05-25 10:12:00 Awe, [facility] BASIC METABOLIC PANEL 2021-05-25 10:12:00 Awe, [facility] ESTIMATED GFR 2021-05-25 10:12:00 Awe, [facility] POC GLUCOSE 2021-05-25 02:49:00 Awe, [facility] POC GLUCOSE 2021-05-24 23:33:00 Awe, [facility] POC GLUCOSE 2021-05-24 17:56:00 Awe, [facility] POC GLUCOSE 2021-05-24 13:59:00 Awe, [facility] CBC HEMOGRAM 2021-05-24 10:12:00 [facility] 2021-05-24 10:12:00 Awe, [facility] ESTIMATED GFR 2021-05-24 10:12:00 Awe, [facility] POC GLUCOSE 2021-05-24 09:59:00 Awe, [facility] POC GLUCOSE 2021-05-24 02:26:00 Awe, [facility] POC GLUCOSE 2021-05-24 00:03:00 Awe, [facility] TRANSFUSE RED BLOOD CELLS 2021-05-23 22:30:00 [facility] [facility] TRANSFUSE RED BLOOD CELLS 2021-05-23 21:30:00 [facility] POC GLUCOSE 2021-05-23 19:03:00 Awe, [facility] TYPE AND SCREEN 2021-05-23 14:38:00 [facility] HC COMPLETE BLD COUNT 2021-05-23 14:38:00 [facility] PREPARE RBC 2021-05-23 14:38:00 [facility] ospital PREPARE PLATELET PHERESIS 2021-05-23 14:38:00 [facility] POC GLUCOSE 2021-05-23 14:35:00 Awe, [facility] HEMODIALYSIS 2021-05-23 13:42:30 [facility] CBC HEMOGRAM 2021-05-23 12:31:00 Awe, [facility] BASIC METABOLIC PANEL 2021-05-23 12:31:00 Awe, Marilu [facility] ESTIMATED GFR 2021-05-23 12:31:00 Awe, Marilu Arvin [facility] POC GLUCOSE 2021-05-23 11:22:00 Awe, Marilu Arvin [facility] POC GLUCOSE 2021-05-23 03:30:00 Awe, Marilu Arvin [facility] POC GLUCOSE 2021-05-22 23:20:00 [facility]-05-22 17:20[facility]00 [facility] 2021-05-22 13:27:00 Awe, Marilu Arvin [facility] BASIC METABOLIC PANEL 2021-05-22 12:31:00 Nikki Haynes [facility] Rahel MAGNESIUM LEVEL 2021-05-22 12:31:00 Nikki Haynes ospital [place] CBC HEMOGRAM 2021-05-22 12:31:00 Nikki Haynes [facility]ital [place] ESTIMATED GFR 2021-05-22 12:31:00 Nikki Haynes ospital [place] POC GLUCOSE 2021-05-22 10:54:00 [facility] 2021-05-22 07:28:00 [facility] 2021-05-22 01:11:00 [facility] HE[facility] B SURFACE 2021-05-21 21:08:00 [facility] ANTIBODY HEMODIALYSIS 2021-05-21 20:57:40 [facility] POC GLUCOSE 2021-05-21 17:57:00 [facility] 2021-05-21 13:55:00 [facility] 2021-05-21 10:41:00 Tom Barbertal ZZCOVID-19 ANTI-SPIKE IGG 2021-05-21 07:43:00 Clyde Olmstead [facility] ANTIBODY TITER Esa BASIC METABOLIC PANEL 2021-05-21 07:43:00 [facility] [place] MAGNESIUM LEVEL 2021-05-21 07:43:00 [facility]ki [facility] [place] CBC HEMOGRAM 2021-05-21 07:43:00 [place] [facility] [place] ZZCOVID-19 SEROLOGY 2021-05-21 07:43:00 Clyde Olmstead [facility] PATIENT SURVEILLANCE Esa ESTIMATED GFR 2021-05-21 07:43:00 Andre Sofia marilyn Pruitt LACTIC ACID LEVEL 2021-05-21 07:43:00 Leodan Stevenson [facility] POC GLUCOSE 2021-05-21 06:35:00 Tom Barber rajeshtal HC COMPLETE BLD COUNT 2021-05-21 02:49:00 [facility] W/AUTO DIFF BASIC METABOLIC PANEL 2021-05-21 02:49:00 [facility] LACTIC ACID LEVEL 2021-05-21 02:49:00 [facility] OSMOLALITY, SERUM 2021-05-21 02:49:00 [facility] BETA HYDROXYBUTYRATE 2021-05-21 02:49:00 [facility] PROCALCITONIN 2021-05-21 02:49:00 [facility] ESTIMATED GFR 2021-05-21 02:49:00 [facility] POC GLUCOSE 2021-05-21 02:34:00 Tom Barbertal HC COMPLETE BLD COUNT 2021-05-21 00:28:00 Char Viramontes [facility] W/AUTO DIFF POC GLUCOSE 2021-05-20 23:57:00 Tom Barber spital BASIC METABOLIC PANEL 2021-05-20 23:20:00 Andre Sofia [facility] [place] LACTIC ACID LEVEL 2021-05-20 23:20:00 [facility] 2021-05-20 23:20:00 Andre Sofia Ho [...] RED BLOOD CELLS 2021-05-20 17:21:00 Andre Sofia [facility] TRANSFUSE PLATELET 2021-05-20 15:52:00 Char Viramontes [facility] PHERESIS BASIC METABOLIC PANEL 2021-05-20 15:25:00 Andre Sofia [facility] [place] ESTIMATED GFR 2021-05-20 15:25:00 Andre Sofia Ho [facility]ital [place] POC GLUCOSE 2021-05-20 14:48:00 Tom Barber Ho spital HEMODIALYSIS 2021-05-20 11:31:20 [facility]SE 2021-05-20 10:44:00 Tom Barber Ho spital HEPATITIS B SURFACE 2021-05-20 08:49:00 [facility] ANTIGEN HEPATITIS B SURFACE AB, 2021-05-20 08:49:00 Delfino Akbar [facility] QUANTITATIVE HC COMPLETE BLD COUNT 2021-05-20 08:25:00 [facility] W/AUTO DIFF BASIC METABOLIC PANEL 2021-05-20 08:25:00 [facility] MAGNESIUM LEVEL 2021-05-20 08:25:00 [facility] ospital PHOSPHORUS LEVEL 2021-05-20 08:25:00 [facility] PROTHROMBIN TIME WITH INR 2021-05-20 08:25:00 [facility] 2021-05-20 08:25:00 Juwan You spital HEMOGLOBIN A1C 2021-05-20 08:25:00 [facility] [place] POC GLUCOSE 2021-05-20 06:34:00 Tom Barber spital ARTERIAL BLOOD GAS 2021-05-20 04:36:00 Graham [facility] ECG 12-LEAD 2021-05-20 03:42:28 Graham [facility] spital PROTHROMBIN TIME WITH INR 2021-05-20 02:54:00 [facility] HC COMPLETE BLD COUNT 2021-05-20 02:54:00 Graham [facility] W/AUTO DIFF BASIC METABOLIC PANEL 2021-05-20 02:54:00 [facility] LACT[facility] ACID LEVEL 2021-05-20 02:54:00 Graham [facility] VENOUS BLOOD GAS 2021-05-20 02:54:00 Graham [facility] ESTIMATED GFR 2021-05-20 02:54:00 Graham [facility] spital POC GLUCOSE 2021-05-20 02:54:00 Tom Barber spital XR CHEST 1 VW PORTABLE 2021-05-20 02:51:13 Graham [facility] OR [place] < 1 HOUR 2021-05-20 01:30:15 Juwan You spital TRANSFUSE RED BLOOD CELLS 2021-05-20 00:59:00 Juwan You [facility] MS AN ELECTIVE 2021-05-20 00:53:01 Sukhjinder Medina spital SUPRAGLOTTIC AIRWAY [place] INCISION AND DRAINAGE, 2021-05-20 00:45:00 Pati [facility] HEMATOMA HC COMPLETE BLD COUNT 2021-05-19 22:13:00 [facility] W/AUTO DIFF BASIC METABOLIC PANEL 2021-05-19 22:13:00 [facility] PROTHROMBIN TIME WITH INR 2021-05-19 22:13:00 [facility] PARTIAL THROMBOPLASTIN 2021-05-19 22:13:00 [facility] TIME (PTT) MAGNESIUM LEVEL 2021-05-19 22:13:00 Char Viramontes ospital ESTIMATED GFR 2021-05-19 22:13:00 Juwan You spital POC GLUCOSE 2021-05-19 22:00:00 Errol Luther [facility] SURGICAL PATHOLOGY REQUEST 2021-05-19 21:47:00 Errlo Luther [facility] POC GLUCOSE 2021-05-19 21:17:00 Juwan You spital ACTIVATED CLOTTING TIME 2021-05-19 19:12:00 Tom Barber [facility] MS AN ELECTIVE 2021-05-19 18:11:04 Sukhjinder Medina spital SUPRAGLOTTIC AIRWAY [place] LOWER EXTREMITY 2021-05-19 17:59:00 Juwan You spital ANGIOGRAM,POSSIBLE ANGIOPLASTY,POSSIBLE STENT XR CHEST 1 VW PORTABLE 2021-05-19 15:47:37 [facility] 2021-05-19 14:34:00 Juwan You spital POC PANEL 2021-05-19 14:34:00 Juwan You spital TYPE AND SCREEN 2021-05-19 14:05:00 Isabell Dickerson spital Larry Romero PREPARE RBC 2021-05-19 14:05:00 Char Viramontes ospital PREPARE FRESH FROZEN 2021-05-19 14:05:00 Char Viramontes [facility] PLASMA PREPARE PLATELET PHERESIS 2021-05-19 14:05:00 Char Viramontes [facility] BASIC METABOLIC PANEL 2021-05-19 14:00:00 [facility] Larry Romero PROTHROMBIN TIME WITH INR 2021-05-19 14:00:00 Jayla [facility] Larry Romero HC COMPLETE BLD COUNT 2021-05-19 14:00:00 [facility] W/AUTO DIFF Larry Romero ABO AND RH CONFIRMATION BY 2021-05-19 14:00:00 Juwan You [facility] PROTOCOL ESTIMATED GFR 2021-05-19 14:00:00 Isabell Dickerson spigabe Romero COVID-19 QUALITATIVE 2021-05-19 12:40:00 Juwan You [facility] RT-PCR MEDICAL RELEASE/CLEARANCE 2021-05-13 06:01:00 Doctor Unassigned, [facility] FORMS [facility] US DUPLEX ARTERIAL LOWER 2021-05-12 15:21:31 Juwan You [facility] EXTREMITY BILATERAL Emergency department visit 2013-04-15 05:00:00 M lynrikatya Banuelos for the evaluation and management of [...] push, single or initial substance/drug Eye procedure [facility] Colonoscopy [facility] EGD [facility] (esophagogastroduodenoscop y) 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 Plan of Care Planned Activity Planned Date Details Comments Source Future Scheduled 2023-04-05 HEPATITIS B VACCINES Met [facility] Test 15:23:31 (1 of 3 - 3-dose series) [code = HEPATITIS B VACCINES (1 of 3 - 3-dose series)] Future Scheduled 2023-04-05 COVID-19 VACCINE (#1) [facility] Test 15:23:31 [code = COVID-19 VACCINE (#1)] Future Scheduled 2023-04-05 Pneumococcal Vaccine: [facility] Test 15:23:31 Pediatrics (0 to 5 Years) and At-Risk Patients (6 to 64 Years) (1 - PCV) [code = Pneumococcal Vaccine: Pediatrics (0 to 5 Years) and At-Risk Patients (6 to 64 Years) (1 - PCV)] Future Scheduled 2023-04-05 Hepatitis C screening [facility] Test 15:23:31 (procedure) [code = [id number]] Future Scheduled 2023-04-05 Screening for [facility] Test 15:23:31 malignant neoplasm of cervix (procedure) [code = 689238851] Future Scheduled 2023-04-05 BREAST CANCER [facility] Test 15:23:31 SCREENING [code = BREAST CANCER SCREENING] Future Scheduled 2023-04-05 INFLUENZA VACCINE (#1) [facility] Test 15:23:31 [code = INFLUENZA VACCINE (#1)] Future Scheduled 2023-04-05 RSV VACCINES > 60 YR Met [facility] Test 15:23:31 (1 - 1-dose 60+ series) [code = RSV VACCINES > 60 YR (1 - 1-dose 60+ series)] Future Scheduled 2023-03-08 HEPATITIS B VACCINES Met [facility] Test 17:12:31 (1 of 3 - 3-dose series) [code = HEPATITIS B VACCINES (1 of 3 - 3-dose series)] Future Scheduled 2023-03-08 COVID-19 VACCINE (#1) [facility] Test 17:12:31 [code = COVID-19 VACCINE (#1)] Future Scheduled 2023-03-08 Pneumococcal Vaccine: [facility] Test 17:12:31 Pediatrics (0 to 5 Years) and At-Risk Patients (6 to 64 Years) (1 - PCV) [code = Pneumococcal Vaccine: Pediatrics (0 to 5 Years) and At-Risk Patients (6 to 64 Years) (1 - PCV)] Future Scheduled 2023-03-08 Hepatitis C screening [facility] Test 17:12:31 (procedure) [code = 402511718] Future Scheduled 2023-03-08 Screening for [facility] Test 17:12:31 malignant neoplasm of cervix (procedure) [code = 833204715] Future Scheduled 2023-03-08 BREAST CANCER [facility] Test 17:12:31 SCREENING [code = BREAST CANCER SCREENING] Future Scheduled 2023-03-08 INFLUENZA VACCINE (#1) [facility] Test 17:12:31 [code = INFLUENZA VACCINE (#1)] Future Scheduled 2023-03-08 HEPATITIS B VACCINES Met [facility] Test 17:12:31 (1 of 3 - 3-dose series) [code = HEPATITIS B VACCINES (1 of 3 - 3-dose series)] Future Scheduled 2023-03-08 COVID-19 VACCINE (#1) [facility] Test 17:12:31 [code = COVID-19 VACCINE (#1)] Future Scheduled 2023-03-08 Pneumococcal Vaccine: [facility] Test 17:12:31 Pediatrics (0 to 5 Years) and At-Risk Patients (6 to 64 Years) (1 - PCV) [code = Pneumococcal Vaccine: Pediatrics (0 to 5 Years) and At-Risk Patients (6 to 64 Years) (1 - PCV)] Future Scheduled 2023-03-08 Hepatitis C screening [facility] Test 17:12:31 (procedure) [code = [id number]] Future Scheduled 2023-03-08 Screening for [facility] Test 17:12:31 malignant neoplasm of cervix (procedure) [code = 381908245] Future Scheduled 2023-03-08 BREAST CANCER [facility] Test 17:12:31 SCREENING [code = BREAST CANCER SCREENING] Future Scheduled 2023-03-08 INFLUENZA VACCINE (#1) [facility] Test 17:12:31 [code = INFLUENZA VACCINE (#1)] Future Scheduled 2023-03-08 HEPATITIS B VACCINES Met [facility] Test 17:12:31 (1 of 3 - 3-dose series) [code = HEPATITIS B VACCINES (1 of 3 - 3-dose series)] Future Scheduled 2023-03-08 COVID-19 VACCINE (#1) [facility] Test 17:12:31 [code = COVID-19 VACCINE (#1)] Future Scheduled 2023-03-08 Pneumococcal Vaccine: [facility] Test 17:12:31 Pediatrics (0 to 5 Years) and At-Risk Patients (6 to 64 Years) (1 - PCV) [code = Pneumococcal Vaccine: Pediatrics (0 to 5 Years) and At-Risk Patients (6 to 64 Years) (1 - PCV)] Future Scheduled 2023-03-08 Hepatitis C screening [facility] Test 17:12:31 (procedure) [code = 384338866] Future Scheduled 2023-03-08 Screening for [facility] Test 17:12:31 malignant neoplasm of cervix (procedure) [code = 370988944] Future Scheduled 2023-03-08 BREAST CANCER [facility] Test 17:12:31 SCREENING [code = BREAST CANCER SCREENING] Future Scheduled 2023-03-08 INFLUENZA VACCINE (#1) [facility] Test 17:12:31 [code = INFLUENZA VACCINE (#1)] Future Scheduled 2023-03-08 HEPATITIS B VACCINES Met [facility] Test 17:12:31 (1 of 3 - 3-dose series) [code = HEPATITIS B VACCINES (1 of 3 - 3-dose series)] Future Scheduled 2023-03-08 COVID-19 VACCINE (#1) [facility] Test 17:12:31 [code = COVID-19 VACCINE (#1)] Future Scheduled 2023-03-08 Pneumococcal Vaccine: [facility] Test 17:12:31 Pediatrics (0 to 5 Years) and At-Risk Patients (6 to 64 Years) (1 - PCV) [code = Pneumococcal Vaccine: Pediatrics (0 to 5 Years) and At-Risk Patients (6 to 64 Years) (1 - PCV)] Future Scheduled 2023-03-08 Hepatitis C screening [facility] Test 17:12:31 (procedure) [code = 857459402] Future Scheduled 2023-03-08 Screening for [facility] Test 17:12:31 malignant neoplasm of cervix (procedure) [code = 607416112] Future Scheduled 2023-03-08 BREAST CANCER [facility] Test 17:12:31 SCREENING [code = BREAST CANCER SCREENING] Future Scheduled 2023-03-08 INFLUENZA VACCINE (#1) [facility] Test 17:12:31 [code = INFLUENZA VACCINE (#1)] Future Scheduled 2023-01-22 HEPATITIS B VACCINES Met [facility] Test 15:55:51 (1 of 3 - 3-dose series) [code = HEPATITIS B VACCINES (1 of 3 - 3-dose series)] Future Scheduled 2023-01-22 COVID-19 VACCINE (#1) [facility] Test 15:55:51 [code = COVID-19 VACCINE (#1)] Future Scheduled 2023-01-22 Pneumococcal Vaccine: [facility] Test 15:55:51 Pediatrics (0 to 5 Years) and At-Risk Patients (6 to 64 Years) (1 - PCV) [code = Pneumococcal Vaccine: Pediatrics (0 to 5 Years) and At-Risk Patients (6 to 64 Years) (1 - PCV)] Future Scheduled 2023-01-22 Hepatitis C screening [facility] Test 15:55:51 (procedure) [code = 195786115] Future Scheduled 2023-01-22 Screening for [facility] Test 15:55:51 malignant neoplasm of cervix (procedure) [code = 984061950] Future Scheduled 2023-01-22 BREAST CANCER [facility] Test 15:55:51 SCREENING [code = BREAST CANCER SCREENING] Future Scheduled 2023-01-22 INFLUENZA VACCINE [facility] Test 15:55:51 [code = INFLUENZA VACCINE] Future Scheduled 2023-01-22 HEPATITIS B VACCINES Met [facility] Test 15:55:51 (1 of 3 - 3-dose series) [code = HEPATITIS B VACCINES (1 of 3 - 3-dose series)] Future Scheduled 2023-01-22 COVID-19 VACCINE (#1) [facility] Test 15:55:51 [code = COVID-19 VACCINE (#1)] Future Scheduled 2023-01-22 Pneumococcal Vaccine: [facility] Test 15:55:51 Pediatrics (0 to 5 Years) and At-Risk Patients (6 to 64 Years) (1 - PCV) [code = Pneumococcal Vaccine: Pediatrics (0 to 5 Years) and At-Risk Patients (6 to 64 Years) (1 - PCV)] Future Scheduled 2023-01-22 Hepatitis C screening [facility] Test 15:55:51 (procedure) [code = 356322027] Future Scheduled 2023-01-22 Screening for [facility] Test 15:55:51 malignant neoplasm of cervix (procedure) [code = 474317988] Future Scheduled 2023-01-22 BREAST CANCER [facility] Test 15:55:51 SCREENING [code = BREAST CANCER SCREENING] Future Scheduled 2023-01-22 INFLUENZA VACCINE [facility] Test 15:55:51 [code = INFLUENZA VACCINE] Future Scheduled 2022-12-19 HEPATITIS B VACCINES Met [facility] Test 02:39:18 (1 of 3 - 3-dose series) [code = HEPATITIS B VACCINES (1 of 3 - 3-dose series)] Future Scheduled 2022-12-19 COVID-19 VACCINE (#1) [facility] Test 02:39:18 [code = COVID-19 VACCINE (#1)] Future Scheduled 2022-12-19 Pneumococcal Vaccine: [facility] Test 02:39:18 Pediatrics (0 to 5 Years) and At-Risk Patients (6 to 64 Years) (1 - PCV) [code = Pneumococcal Vaccine: Pediatrics (0 to 5 Years) and At-Risk Patients (6 to 64 Years) (1 - PCV)] Future Scheduled 2022-12-19 Hepatitis C screening [facility] Test 02:39:18 (procedure) [code = 144869423] Future Scheduled 2022-12-19 Screening for [facility] Test 02:39:18 malignant neoplasm of cervix (procedure) [code = 126204273] Future Scheduled 2022-12-19 BREAST CANCER [facility] Test 02:39:18 SCREENING [code = BREAST CANCER SCREENING] Future Scheduled 2022-12-19 INFLUENZA VACCINE [facility] Test 02:39:18 [code = INFLUENZA VACCINE] Future Scheduled 2022-12-19 HEPATITIS B VACCINES Met [facility] Test 02:39:18 (1 of 3 - 3-dose series) [code = HEPATITIS B VACCINES (1 of 3 - 3-dose series)] Future Scheduled 2022-12-19 COVID-19 VACCINE (#1) [facility] Test 02:39:18 [code = COVID-19 VACCINE (#1)] Future Scheduled 2022-12-19 Pneumococcal Vaccine: [facility] Test 02:39:18 Pediatrics (0 to 5 Years) and At-Risk Patients (6 to 64 Years) (1 - PCV) [code = Pneumococcal Vaccine: Pediatrics (0 to 5 Years) and At-Risk Patients (6 to 64 Years) (1 - PCV)] Future Scheduled 2022-12-19 Hepatitis C screening [facility] Test 02:39:18 (procedure) [code = 835492844] Future Scheduled 2022-12-19 Screening for [facility] Test 02:39:18 malignant neoplasm of cervix (procedure) [code = 201818957] Future Scheduled 2022-12-19 BREAST CANCER [facility] Test 02:39:18 SCREENING [code = BREAST CANCER SCREENING] Future Scheduled 2022-12-19 INFLUENZA VACCINE [facility] Test 02:39:18 [code = INFLUENZA VACCINE] Future Scheduled 2022-12-19 HEPATITIS B VACCINES Met [facility] Test 02:39:18 (1 of 3 - 3-dose series) [code = HEPATITIS B VACCINES (1 of 3 - 3-dose series)] Future Scheduled 2022-12-19 COVID-19 VACCINE (#1) [facility] Test 02:39:18 [code = COVID-19 VACCINE (#1)] Future Scheduled 2022-12-19 Pneumococcal Vaccine: [facility] Test 02:39:18 Pediatrics (0 to 5 Years) and At-Risk Patients (6 to 64 Years) (1 - PCV) [code = Pneumococcal Vaccine: Pediatrics (0 to 5 Years) and At-Risk Patients (6 to 64 Years) (1 - PCV)] Future Scheduled 2022-12-19 Hepatitis C screening [facility] Test 02:39:18 (procedure) [code = 811817226] Future Scheduled 2022-12-19 Screening for [facility] Test 02:39:18 malignant neoplasm of cervix (procedure) [code = 766275665] Future Scheduled 2022-12-19 BREAST CANCER [facility] Test 02:39:18 SCREENING [code = BREAST CANCER SCREENING] Future Scheduled 2022-12-19 INFLUENZA VACCINE [facility] Test 02:39:18 [code = INFLUENZA VACCINE] Future Scheduled 2022-12-19 HEPATITIS B VACCINES Met [facility] Test 02:39:18 (1 of 3 - 3-dose series) [code = HEPATITIS B VACCINES (1 of 3 - 3-dose series)] Future Scheduled 2022-12-19 COVID-19 VACCINE (#1) [facility] Test 02:39:18 [code = COVID-19 VACCINE (#1)] Future Scheduled 2022-12-19 Pneumococcal Vaccine: [facility] Test 02:39:18 Pediatrics (0 to 5 Years) and At-Risk Patients (6 to 64 Years) (1 - PCV) [code = Pneumococcal Vaccine: Pediatrics (0 to 5 Years) and At-Risk Patients (6 to 64 Years) (1 - PCV)] Future Scheduled 2022-12-19 Hepatitis C screening [facility] Test 02:39:18 (procedure) [code = 584365983] Future Scheduled 2022-12-19 Screening for [facility] Test 02:39:18 malignant neoplasm of cervix (procedure) [code = 922125181] Future Scheduled 2022-12-19 BREAST CANCER [facility] Test 02:39:18 SCREENING [code = BREAST CANCER SCREENING] Future Scheduled 2022-12-19 INFLUENZA VACCINE [facility] Test 02:39:18 [code = INFLUENZA VACCINE] Future Scheduled 2022-12-19 HEPATITIS B VACCINES Met [facility] Test 02:39:18 (1 of 3 - 3-dose series) [code = HEPATITIS B VACCINES (1 of 3 - 3-dose series)] Future Scheduled 2022-12-19 COVID-19 VACCINE (#1) [facility] Test 02:39:18 [code = COVID-19 VACCINE (#1)] Future Scheduled 2022-12-19 Pneumococcal Vaccine: [facility] Test 02:39:18 Pediatrics (0 to 5 Years) and At-Risk Patients (6 to 64 Years) (1 - PCV) [code = Pneumococcal Vaccine: Pediatrics (0 to 5 Years) and At-Risk Patients (6 to 64 Years) (1 - PCV)] Future Scheduled 2022-12-19 Hepatitis C screening [facility] Test 02:39:18 (procedure) [code = 924420880] Future Scheduled 2022-12-19 Screening for [facility] Test 02:39:18 malignant neoplasm of cervix (procedure) [code = 214324327] Future Scheduled 2022-12-19 BREAST CANCER [facility] Test 02:39:18 SCREENING [code = BREAST CANCER SCREENING] Future Scheduled 2022-12-19 INFLUENZA VACCINE Method [facility] Test 02:39:18 [code = INFLUENZA VACCINE] Future Scheduled 2022-12-10 HEPATITIS B VACCINES Met [facility] Test 14:28:00 (1 of 3 - 3-dose series) [code = HEPATITIS B VACCINES (1 of 3 - 3-dose series)] Future Scheduled 2022-12-10 COVID-19 VACCINE (#1) [facility] Test 14:28:00 [code = COVID-19 VACCINE (#1)] Future Scheduled 2022-12-10 Pneumococcal Vaccine: [facility] Test 14:28:00 Pediatrics (0 to 5 Years) and At-Risk Patients (6 to 64 Years) (1 - PCV) [code = Pneumococcal Vaccine: Pediatrics (0 to 5 Years) and At-Risk Patients (6 to 64 Years) (1 - PCV)] Future Scheduled 2022-12-10 Hepatitis C screening [facility] Test 14:28:00 (procedure) [code = 272409060] Future Scheduled 2022-12-10 Screening for [facility] Test 14:28:00 malignant neoplasm of cervix (procedure) [code = 592662768] Future Scheduled 2022-12-10 BREAST CANCER [facility] Test 14:28:00 SCREENING [code = BREAST CANCER SCREENING] Future Scheduled 2022-12-10 INFLUENZA VACCINE Method [facility] Test 14:28:00 [code = INFLUENZA VACCINE] Future Scheduled 2022-12-04 HEPATITIS B VACCINES Met [facility] Test 23:23:00 (1 of 3 - 3-dose series) [code = HEPATITIS B VACCINES (1 of 3 - 3-dose series)] Future Scheduled 2022-12-04 COVID-19 VACCINE (#1) [facility] Test 23:23:00 [code = COVID-19 VACCINE (#1)] Future Scheduled 2022-12-04 Pneumococcal Vaccine: [facility] Test 23:23:00 Pediatrics (0 to 5 Years) and At-Risk Patients (6 to 64 Years) (1 - PCV) [code = Pneumococcal Vaccine: Pediatrics (0 to 5 Years) and At-Risk Patients (6 to 64 Years) (1 - PCV)] Future Scheduled 2022-12-04 Hepatitis C screening [facility] Test 23:23:00 (procedure) [code = 085673552] Future Scheduled 2022-12-04 [facility] Test 23:23:00 malignant neoplasm of cervix (procedure) [code = [id number]] Future Scheduled 2022-12-04 BREAST CANCER [facility] Test 23:23:00 SCREENING [code = BREAST CANCER SCREENING] Future Scheduled 2022-12-04 INFLUENZA VACCINE [facility] Test 23:23:00 [code = INFLUENZA VACCINE] Future Scheduled 2022-12-04 HEPATITIS B VACCINES Met [facility] Test 23:23:00 (1 of 3 - 3-dose series) [code = HEPATITIS B VACCINES (1 of 3 - 3-dose series)] Future Scheduled 2022-12-04 COVID-19 VACCINE (#1) [facility] Test 23:23:00 [code = COVID-19 VACCINE (#1)] Future Scheduled 2022-12-04 Pneumococcal Vaccine: [facility] Test 23:23:00 Pediatrics (0 to 5 Years) and At-Risk Patients (6 to 64 Years) (1 - PCV) [code = Pneumococcal Vaccine: Pediatrics (0 to 5 Years) and At-Risk Patients (6 to 64 Years) (1 - PCV)] Future Scheduled 2022-12-04 Hepatitis C screening [facility] Test 23:23:00 (procedure) [code = [id number]] Future Scheduled 2022-12-04 Screening for [facility] Test 23:23:00 malignant neoplasm of cervix (procedure) [code = 058438788] Future Scheduled 2022-12-04 BREAST CANCER [facility] Test 23:23:00 SCREENING [code = BREAST CANCER SCREENING] Future Scheduled 2022-12-04 INFLUENZA VACCINE [facility] Test 23:23:00 [code = INFLUENZA VACCINE] Future Scheduled 2022-11-12 HEPATITIS B VACCINES Met [facility] Test 20:50:47 (1 of 3 - 3-dose series) [code = HEPATITIS B VACCINES (1 of 3 - 3-dose series)] Future Scheduled 2022-11-12 COVID-19 VACCINE (#1) [facility] Test 20:50:47 [code = COVID-19 VACCINE (#1)] Future Scheduled 2022-11-12 Pneumococcal Vaccine: [facility] Test 20:50:47 Pediatrics (0 to 5 Years) and At-Risk Patients (6 to 64 Years) (1 - PCV) [code = Pneumococcal Vaccine: Pediatrics (0 to 5 Years) and At-Risk Patients (6 to 64 Years) (1 - PCV)] Future Scheduled 2022-11-12 Hepatitis C screening [facility] Test 20:50:47 (procedure) [code = [id number]] Future Scheduled 2022-11-12 Screening for [facility] Test 20:50:47 malignant neoplasm of cervix (procedure) [code = 168796413] Future Scheduled 2022-11-12 BREAST CANCER [facility] Test 20:50:47 SCREENING [code = BREAST CANCER SCREENING] Future Scheduled 2022-11-12 [facility]ZA VACCINE [facility] 20:50:47 [code = INFLUENZA VACCINE] Future Scheduled 2022-11-12 HEPATITIS B VACCINES Met [facility] Test 20:50:47 (1 of 3 - 3-dose series) [code = HEPATITIS B VACCINES (1 of 3 - 3-dose series)] Future Scheduled 2022-11-12 COVID-19 VACCINE (#1) [facility] Test 20:50:47 [code = COVID-19 VACCINE (#1)] Future Scheduled 2022-11-12 Pneumococcal Vaccine: [facility] Test 20:50:47 Pediatrics (0 to 5 Years) and At-Risk Patients (6 to 64 Years) (1 - PCV) [code = Pneumococcal Vaccine: Pediatrics (0 to 5 Years) and At-Risk Patients (6 to 64 Years) (1 - PCV)] Future Scheduled 2022-11-12 Hepatitis C screening [facility] Test 20:50:47 (procedure) [code = [id number]] Future Scheduled 2022-11-12 Screening for [facility] Test 20:50:47 malignant neoplasm of cervix (procedure) [code = 261031173] Future Scheduled 2022-11-12 BREAST CANCER [facility] Test 20:50:47 SCREENING [code = BREAST CANCER SCREENING] Future Scheduled 2022-11-12 INFLU[facility]ZA VACCINE [facility] 20:50:47 [code = INFLUENZA VACCINE] Future Scheduled 2022-11-12 HEPATITIS B VACCINES Met [facility] Test 20:50:47 (1 of 3 - 3-dose series) [code = HEPATITIS B VACCINES (1 of 3 - 3-dose series)] Future Scheduled 2022-11-12 COVID-19 VACCINE (#1) [facility] Test 20:50:47 [code = COVID-19 VACCINE (#1)] Future Scheduled 2022-11-12 Pneumococcal Vaccine: [facility] Test 20:50:47 Pediatrics (0 to 5 Years) and At-Risk Patients (6 to 64 Years) (1 - PCV) [code = Pneumococcal Vaccine: Pediatrics (0 to 5 Years) and At-Risk Patients (6 to 64 Years) (1 - PCV)] Future Scheduled 2022-11-12 Hepatitis C screening [facility] Test 20:50:47 (procedure) [code = [id number]] Future Scheduled 2022-11-12 Screening for [facility] Test 20:50:47 malignant neoplasm of cervix (procedure) [code = 753108521] Future Scheduled 2022-11-12 BREAST CANCER [facility] Test 20:50:47 SCREENING [code = BREAST CANCER SCREENING] Future Scheduled 2022-11-12 [facility]ZA VACCINE [facility] Test 20:50:47 [code = INFLUENZA VACCINE] Future Scheduled 2022-10-23 HEPATITIS B VACCINES Met [facility] Test 05:16:19 (1 of 3 - 3-dose series) [code = HEPATITIS B VACCINES (1 of 3 - 3-dose series)] Future Scheduled 2022-10-23 COVID-19 VACCINE (#1) [facility] Test 05:16:19 [code = COVID-19 VACCINE (#1)] Future Scheduled 2022-10-23 Pneumococcal Vaccine: [facility] Test 05:16:19 Pediatrics (0 to 5 Years) and At-Risk Patients (6 to 64 Years) (1 - PCV) [code = Pneumococcal Vaccine: Pediatrics (0 to 5 Years) and At-Risk Patients (6 to 64 Years) (1 - PCV)] Future Scheduled 2022-10-23 Hepatitis C screening [facility] Test 05:16:19 (procedure) [code = 973689222] Future Scheduled 2022-10-23 Screening for [facility] Test 05:16:19 malignant neoplasm of cervix (procedure) [code = 062013694] Future Scheduled 2022-10-23 BREAST CANCER [facility] Test 05:16:19 SCREENING [code = BREAST CANCER SCREENING] Future Scheduled 2022-10-23 INFLUENZA VACCINE Method [facility] Test 05:16:19 [code = INFLUENZA VACCINE] Future Scheduled 2022-06-11 HEPATITIS B VACCINES Met [facility] Test 02:09:30 (1 of 3 - 3-dose series) [code = HEPATITIS B VACCINES (1 of 3 - 3-dose series)] Future Scheduled 2022-06-11 COVID-19 VACCINE (#1) [facility] Test 02:09:30 [code = COVID-19 VACCINE (#1)] Future Scheduled 2022-06-11 Pneumococcal Vaccine: [facility] Test 02:09:30 Pediatrics (0 to 5 Years) and At-Risk Patients (6 to 64 Years) (1 - PCV) [code = Pneumococcal Vaccine: Pediatrics (0 to 5 Years) and At-Risk Patients (6 to 64 Years) (1 - PCV)] Future Scheduled 2022-06-11 Hepatitis C screening [facility] Test 02:09:30 (procedure) [code = [id number]] Future Scheduled 2022-06-11 Screening for [facility] Test 02:09:30 malignant neoplasm of cervix (procedure) [code = 369085297] Future Scheduled 2022-06-11 INFLUENZA VACCINE Method [facility] Test 02:09:30 [code = INFLUENZA VACCINE] Future Scheduled 2022-06-11 HEPATITIS B VACCINES Met [facility] Test 02:09:30 (1 of 3 - 3-dose series) [code = HEPATITIS B VACCINES (1 of 3 - 3-dose series)] Future Scheduled 2022-06-11 COVID-19 VACCINE (#1) [facility] Test 02:09:30 [code = COVID-19 VACCINE (#1)] Future Scheduled 2022-06-11 Pneumococcal Vaccine: [facility] Test 02:09:30 Pediatrics (0 to 5 Years) and At-Risk Patients (6 to 64 Years) (1 - PCV) [code = Pneumococcal Vaccine: Pediatrics (0 to 5 Years) and At-Risk Patients (6 to 64 Years) (1 - PCV)] Future Scheduled 2022-06-11 Hepatitis C screening [facility] Test 02:09:30 (procedure) [code = 597093591] Future Scheduled 2022-06-11 Screening for [facility] Test 02:09:30 malignant neoplasm of cervix (procedure) [code = 263209531] Future Scheduled 2022-06-11 [facility]ZA VACCINE [facility] Test 02:09:30 [code = INFLUENZA VACCINE] Future Scheduled 2022-06-11 HEPATITIS B VACCINES Met [facility] Test 02:09:30 (1 of 3 - 3-dose series) [code = HEPATITIS B VACCINES (1 of 3 - 3-dose series)] Future Scheduled 2022-06-11 COVID-19 VACCINE (#1) [facility] Test 02:09:30 [code = COVID-19 VACCINE (#1)] Future Scheduled 2022-06-11 Pneumococcal Vaccine: [facility] Test 02:09:30 Pediatrics (0 to 5 Years) and At-Risk Patients (6 to 64 Years) (1 - PCV) [code = Pneumococcal Vaccine: Pediatrics (0 to 5 Years) and At-Risk Patients (6 to 64 Years) (1 - PCV)] Future Scheduled 2022-06-11 Hepatitis C screening [facility] Test 02:09:30 (procedure) [code = 937158914] Future Scheduled 2022-06-11 Screening for [facility] Test 02:09:30 malignant neoplasm of cervix (procedure) [code = 869781765] Future Scheduled 2022-06-11 INFLUENZA VACCINE Method [facility] Test 02:09:30 [code = INFLUENZA VACCINE] Future Scheduled 2022-06-11 HEPATITIS B VACCINES Met [facility] Test 02:09:30 (1 of 3 - 3-dose series) [code = HEPATITIS B VACCINES (1 of 3 - 3-dose series)] Future Scheduled 2022-06-11 COVID-19 VACCINE (#1) [facility] Test 02:09:30 [code = COVID-19 VACCINE (#1)] Future Scheduled 2022-06-11 Pneumococcal Vaccine: [facility] Test 02:09:30 Pediatrics (0 to 5 Years) and At-Risk Patients (6 to 64 Years) (1 - PCV) [code = Pneumococcal Vaccine: Pediatrics (0 to 5 Years) and At-Risk Patients (6 to 64 Years) (1 - PCV)] Future Scheduled 2022-06-11 Hepatitis C screening [facility] Test 02:09:30 (procedure) [code = 413837849] Future Scheduled 2022-06-11 Screening for [facility] Test 02:09:30 malignant neoplasm of cervix (procedure) [code = 434796189] Future Scheduled 2022-06-11 [facility]FL[facility]ZA VACCINE [facility] Test 02:09:30 [code = INFLUENZA VACCINE] Future Scheduled 2022-06-11 HEPATITIS B VACCINES Met [facility] Test 02:09:30 (1 of 3 - 3-dose series) [code = HEPATITIS B VACCINES (1 of 3 - 3-dose series)] Future Scheduled 2022-06-11 COVID-19 VACCINE (#1) [facility] Test 02:09:30 [code = COVID-19 VACCINE (#1)] Future Scheduled 2022-06-11 Pneumococcal Vaccine: [facility] Test 02:09:30 Pediatrics (0 to 5 Years) and At-Risk Patients (6 to 64 Years) (1 - PCV) [code = Pneumococcal Vaccine: Pediatrics (0 to 5 Years) and At-Risk Patients (6 to 64 Years) (1 - PCV)] Future Scheduled 2022-06-11 Hepatitis C screening [facility] Test 02:09:30 (procedure) [code = 784893752] Future Scheduled 2022-06-11 Screening for [facility] Test 02:09:30 malignant neoplasm of cervix (procedure) [code = 046937009] Future Scheduled 2022-06-11 INFLUENZA VACCINE Method [facility] Test 02:09:30 [code = INFLUENZA VACCINE] Future Scheduled 2022-06-11 HEPATITIS B VACCINES Met [facility] Test 02:09:30 (1 of 3 - 3-dose series) [code = HEPATITIS B VACCINES (1 of 3 - 3-dose series)] Future Scheduled 2022-06-11 COVID-19 VACCINE (#1) [facility] Test 02:09:30 [code = COVID-19 VACCINE (#1)] Future Scheduled 2022-06-11 Pneumococcal Vaccine: [facility] Test 02:09:30 Pediatrics (0 to 5 Years) and At-Risk Patients (6 to 64 Years) (1 - PCV) [code = Pneumococcal Vaccine: Pediatrics (0 to 5 Years) and At-Risk Patients (6 to 64 Years) (1 - PCV)] Future Scheduled 2022-06-11 Hepatitis C screening [facility] Test 02:09:30 (procedure) [code = 412480981] Future Scheduled 2022-06-11 Screening for [facility] Test 02:09:30 malignant neoplasm of cervix (procedure) [code = 294857581] Future Scheduled 2022-06-11 INFLUENZA VACCINE [facility] Test 02:09:30 [code = INFLUENZA VACCINE] Future Scheduled 2022-06-11 HEPATITIS B VACCINES Met [facility] Test 02:09:30 (1 of 3 - 3-dose series) [code = HEPATITIS B VACCINES (1 of 3 - 3-dose series)] Future Scheduled 2022-06-11 COVID-19 VACCINE (#1) [facility] Test 02:09:30 [code = COVID-19 VACCINE (#1)] Future Scheduled 2022-06-11 Pneumococcal Vaccine: [facility] Test 02:09:30 Pediatrics (0 to 5 Years) and At-Risk Patients (6 to 64 Years) (1 - PCV) [code = Pneumococcal Vaccine: Pediatrics (0 to 5 Years) and At-Risk Patients (6 to 64 Years) (1 - PCV)] Future Scheduled 2022-06-11 Hepatitis C screening [facility] Test 02:09:30 (procedure) [code = 683870376] Future Scheduled 2022-06-11 Screening for [facility] Test 02:09:30 malignant neoplasm of cervix (procedure) [code = 983562018] Future Scheduled 2022-06-11 INFLUENZA VACCINE [facility] Test 02:09:30 [code = INFLUENZA VACCINE] Future Scheduled 2022-06-01 HEPATITIS B VACCINES Met [facility] Test 16:17:59 (1 of 3 - 3-dose series) [code = HEPATITIS B VACCINES (1 of 3 - 3-dose series)] Future Scheduled 2022-06-01 COVID-19 VACCINE (#1) [facility] Test 16:17:59 [code = COVID-19 VACCINE (#1)] Future Scheduled 2022-06-01 Pneumococcal Vaccine: [facility] Test 16:17:59 Pediatrics (0 to 5 Years) and At-Risk Patients (6 to 64 Years) (1 - PCV) [code = Pneumococcal Vaccine: Pediatrics (0 to 5 Years) and At-Risk Patients (6 to 64 Years) (1 - PCV)] Future Scheduled 2022-06-01 Hepatitis C screening [facility] Test 16:17:59 (procedure) [code = 352396641] Future Scheduled 2022-06-01 Screening for [facility] Test 16:17:59 malignant neoplasm of cervix (procedure) [code = 956076636] Future Scheduled 2022-06-01 INFLUENZA VACCINE [facility] Test 16:17:59 [code = INFLUENZA VACCINE] Future Scheduled 2022-04-25 HEPATITIS B VACCINES Met [facility] Test 12:43:16 (1 of 3 - 3-dose series) [code = HEPATITIS B VACCINES (1 of 3 - 3-dose series)] Future Scheduled 2022-04-25 COVID-19 VACCINE (#1) [facility] Test 12:43:16 [code = COVID-19 VACCINE (#1)] Future Scheduled 2022-04-25 Pneumococcal Vaccine: [facility] Test 12:43:16 Pediatrics (0 to 5 Years) and At-Risk Patients (6 to 64 Years) (1 - PCV) [code = Pneumococcal Vaccine: Pediatrics (0 to 5 Years) and At-Risk Patients (6 to 64 Years) (1 - PCV)] Future Scheduled 2022-04-25 Hepatitis C screening [facility] Test 12:43:16 (procedure) [code = 561846079] Future Scheduled 2022-04-25 Screening for [facility] Test 12:43:16 malignant neoplasm of cervix (procedure) [code = 646232825] Future Scheduled 2022-04-25 INFLUENZA VACCINE [facility] Test 12:43:16 [code = INFLUENZA VACCINE] Future Scheduled 2022-02-27 HEPATITIS B VACCINES Met [facility] Test 05:24:42 (1 of 3 - 3-dose series) [code = HEPATITIS B VACCINES (1 of 3 - 3-dose series)] Future Scheduled 2022-02-27 COVID-19 VACCINE (#1) [facility] Test 05:24:42 [code = COVID-19 VACCINE (#1)] Future Scheduled 2022-02-27 Pneumococcal Vaccine: [facility] Test 05:24:42 Pediatrics (0 to 5 Years) and At-Risk Patients (6 to 64 Years) (1 - PCV) [code = Pneumococcal Vaccine: Pediatrics (0 to 5 Years) and At-Risk Patients (6 to 64 Years) (1 - PCV)] Future Scheduled 2022-02-27 Hepatitis C screening [facility] Test 05:24:42 (procedure) [code = 671049213] Future Scheduled 2022-02-27 Screening for [facility] Test 05:24:42 malignant neoplasm of cervix (procedure) [code = 460577783] Future Scheduled 2022-02-27 INFLUENZA VACCINE [facility] Test 05:24:42 [code = INFLUENZA VACCINE] Future Scheduled 2022-02-27 HEPATITIS B VACCINES Met [facility] Test 05:24:42 (1 of 3 - 3-dose series) [code = HEPATITIS B VACCINES (1 of 3 - 3-dose series)] Future Scheduled 2022-02-27 COVID-19 VACCINE (#1) [facility] Test 05:24:42 [code = COVID-19 VACCINE (#1)] Future Scheduled 2022-02-27 Pneumococcal Vaccine: [facility] Test 05:24:42 Pediatrics (0 to 5 Years) and At-Risk Patients (6 to 64 Years) (1 - PCV) [code = Pneumococcal Vaccine: Pediatrics (0 to 5 Years) and At-Risk Patients (6 to 64 Years) (1 - PCV)] Future Scheduled 2022-02-27 Hepatitis C screening [facility] Test 05:24:42 (procedure) [code = 751964493] Future Scheduled 2022-02-27 Screening for [facility] Test 05:24:42 malignant neoplasm of cervix (procedure) [code = 008314199] Future Scheduled 2022-02-27 INFLUENZA VACCINE [facility] Test 05:24:42 [code = INFLUENZA VACCINE] Future Scheduled 2022-02-27 HEPATITIS B VACCINES Met [facility] Test 05:24:42 (1 of 3 - 3-dose series) [code = HEPATITIS B VACCINES (1 of 3 - 3-dose series)] Future Scheduled 2022-02-27 COVID-19 VACCINE (#1) [facility] Test 05:24:42 [code = COVID-19 VACCINE (#1)] Future Scheduled 2022-02-27 Pneumococcal Vaccine: [facility] Test 05:24:42 Pediatrics (0 to 5 Years) and At-Risk Patients (6 to 64 Years) (1 - PCV) [code = Pneumococcal Vaccine: Pediatrics (0 to 5 Years) and At-Risk Patients (6 to 64 Years) (1 - PCV)] Future Scheduled 2022-02-27 Hepatitis C screening [facility] Test 05:24:42 (procedure) [code = 387717299] Future Scheduled 2022-02-27 Screening for [facility] Test 05:24:42 malignant neoplasm of cervix (procedure) [code = 146473528] Future Scheduled 2022-02-27 INFLUENZA VACCINE [facility] Test 05:24:42 [code = INFLUENZA VACCINE] Future Scheduled 2022-02-27 HEPATITIS B VACCINES Met [facility] Test 05:24:42 (1 of 3 - 3-dose series) [code = HEPATITIS B VACCINES (1 of 3 - 3-dose series)] Future Scheduled 2022-02-27 COVID-19 VACCINE (#1) [facility] Test 05:24:42 [code = COVID-19 VACCINE (#1)] Future Scheduled 2022-02-27 Pneumococcal Vaccine: [facility] Test 05:24:42 Pediatrics (0 to 5 Years) and At-Risk Patients (6 to 64 Years) (1 - PCV) [code = Pneumococcal Vaccine: Pediatrics (0 to 5 Years) and At-Risk Patients (6 to 64 Years) (1 - PCV)] Future Scheduled 2022-02-27 Hepatitis C screening [facility] Test 05:24:42 (procedure) [code = 737874657] Future Scheduled 2022-02-27 Screening for [facility] Test 05:24:42 malignant neoplasm of cervix (procedure) [code = 085416550] Future Scheduled 2022-02-27 INFLUENZA VACCINE [facility] Test 05:24:42 [code = INFLUENZA VACCINE] Future Scheduled 2022-02-27 HEPATITIS B VACCINES Met [facility] Test 05:24:42 (1 of 3 - 3-dose series) [code = HEPATITIS B VACCINES (1 of 3 - 3-dose series)] Future Scheduled 2022-02-27 COVID-19 VACCINE (#1) [facility] Test 05:24:42 [code = COVID-19 VACCINE (#1)] Future Scheduled 2022-02-27 Pneumococcal Vaccine: [facility] Test 05:24:42 Pediatrics (0 to 5 Years) and At-Risk Patients (6 to 64 Years) (1 - PCV) [code = Pneumococcal Vaccine: Pediatrics (0 to 5 Years) and At-Risk Patients (6 to 64 Years) (1 - PCV)] Future Scheduled 2022-02-27 Hepatitis C screening [facility] Test 05:24:42 (procedure) [code = 528318413] Future Scheduled 2022-02-27 Screening for [facility] Test 05:24:42 malignant neoplasm of cervix (procedure) [code = 408899454] Future Scheduled 2022-02-27 INFLUENZA VACCINE [facility] Test 05:24:42 [code = INFLUENZA VACCINE] Future Scheduled 2022-02-27 HEPATITIS B VACCINES Met [facility] Test 05:24:42 (1 of 3 - 3-dose series) [code = HEPATITIS B VACCINES (1 of 3 - 3-dose series)] Future Scheduled 2022-02-27 COVID-19 VACCINE (#1) [facility] Test 05:24:42 [code = COVID-19 VACCINE (#1)] Future Scheduled 2022-02-27 Pneumococcal Vaccine: [facility] Test 05:24:42 Pediatrics (0 to 5 Years) and At-Risk Patients (6 to 64 Years) (1 - PCV) [code = Pneumococcal Vaccine: Pediatrics (0 to 5 Years) and At-Risk Patients (6 to 64 Years) (1 - PCV)] Future Scheduled 2022-02-27 Hepatitis C screening [facility] Test 05:24:42 (procedure) [code = 504066058] Future Scheduled 2022-02-27 Screening for [facility] Test 05:24:42 malignant neoplasm of cervix (procedure) [code = 053181703] Future Scheduled 2022-02-27 INFLUENZA VACCINE [facility] 05:24:42 [code = INFLUENZA VACCINE] Future Scheduled 2022-02-27 HEPATITIS B VACCINES Met [facility] Test 05:24:42 (1 of 3 - 3-dose series) [code = HEPATITIS B VACCINES (1 of 3 - 3-dose series)] Future Scheduled 2022-02-27 COVID-19 VACCINE (#1) [facility] Test 05:24:42 [code = COVID-19 VACCINE (#1)] Future Scheduled 2022-02-27 Pneumococcal Vaccine: [facility] Test 05:24:42 Pediatrics (0 to 5 Years) and At-Risk Patients (6 to 64 Years) (1 - PCV) [code = Pneumococcal Vaccine: Pediatrics (0 to 5 Years) and At-Risk Patients (6 to 64 Years) (1 - PCV)] Future Scheduled 2022-02-27 Hepatitis C screening [facility] Test 05:24:42 (procedure) [code = 655248515] Future Scheduled 2022-02-27 Screening for [facility] Test 05:24:42 malignant neoplasm of cervix (procedure) [code = 289575454] Future Scheduled 2022-02-27 INFLUENZA VACCINE [facility] Test 05:24:42 [code = INFLUENZA VACCINE] Future Scheduled 2022-02-27 HEPATITIS B VACCINES Met [facility] Test 05:24:42 (1 of 3 - 3-dose series) [code = HEPATITIS B VACCINES (1 of 3 - 3-dose series)] Future Scheduled 2022-02-27 COVID-19 VACCINE (#1) [facility] Test 05:24:42 [code = COVID-19 VACCINE (#1)] Future Scheduled 2022-02-27 Pneumococcal Vaccine: [facility] Test 05:24:42 Pediatrics (0 to 5 Years) and At-Risk Patients (6 to 64 Years) (1 - PCV) [code = Pneumococcal Vaccine: Pediatrics (0 to 5 Years) and At-Risk Patients (6 to 64 Years) (1 - PCV)] Future Scheduled 2022-02-27 Hepatitis C screening [facility] Test 05:24:42 (procedure) [code = 331301745] Future Scheduled 2022-02-27 Screening for [facility] Test 05:24:42 malignant neoplasm of cervix (procedure) [code = 011512592] Future Scheduled 2022-02-27 INFL[facility]ZA VACCINE [facility] 05:24:42 [code = INFLUENZA VACCINE] Future Scheduled 2021-07-22 COVID-19 VACCINE (1) Met [facility] Test 13:11:04 [code = COVID-19 VACCINE (1)] Future Scheduled 2021-07-22 Hepatitis C screening [facility] Test 13:11:04 (procedure) [code = 105093690] Future Scheduled 2021-07-22 Screening for [facility] Test 13:11:04 malignant neoplasm of cervix (procedure) [code = 439158159] Future Scheduled 2021-07-22 INFLU[facility]ZA VACCINE [facility] 13:11:04 [code = INFLUENZA VACCINE] Encounters Start End Encounter Admission Attending Care Care Encounter Source Date/Time Date/Time Type Type Clinicians Facility Department ID 2022-12-15 Outpatient [facility] [id number] [place] 16:29:22 [id number] [facility] 2022-12-11 Outpatient [facility] [id number] [place] 01:41:48 [id number] [facility] 2022-12-10 Outpatient [facility] [id number] [place] 14:27:47 [id number] [facility] 2022-08-28 Outpatient [facility] [id number] [place] 10:54:07 [id number] [facility] 2022-04-29 Outpatient [facility] [id number] [place] 09:02:27 [id number] [facility] 2022-04-28 Outpatient [facility] [id number] [place] 12:17:07 [id number] [facility] 2021-12-29 Outpatient [facility] [id number] [place] 11:56:31 [id number] [facility] 2021-12-19 Outpatient [facility] [id number] [place] 14:05:12 [id number] [facility] 2021-12-12 Outpatient [facility] [id number] [place] 12:11:07 [id number] [facility] 2021-12-05 Outpatient [facility] [id number] [place] 20:09:51 [id number] [facility] 2021-10-28 Outpatient [facility] [id number] [place] 17:04:22 [id number] [facility] 2021-07-22 Outpatient nullFlavo [facility] [id number] Memoria 00:10:30 r Medical 05 l [facility] 2021-07-22 Preadmit nullFlavo [id number] Memoria 00:10:30 r Southwest 68 l [place] 2021-07-22 Outpatient nullFlavo [facility] [id number] Memoria 00:10:30 r Medical 06 l [facility] 2021-04-[address] [facility] [id number] Univers 02:13:03 ity [facility] 2021-04-[address] [facility] [id number] Univers 22:32:[facility] [place] [facility] [facility] [id number] Univers 17:46:08 [facility] [place] [facility] 2023-04-01 2023-04-01 Outpatient [facility] [id number] 023 Luis Miguel 11:48:13 11:48:13 1012 F [place] 2023-03-18 2023-03-18 Outpatient [facility] [id number] 023 Luis Miguel 14:21:37 14:21:37 0928 F Carroll 2023-02-10 2023-02-10 Outpatient [facility] [id number] 023 Luis Miguel 09:13:19 09:13:19 0823 F Carroll 2022-12-12 2022-12-16 Inpatient E MATEUSZ, [facility] [address] [facility] 05:29:00 13:20:00 ZURDO 2022-12-10 2022-12-11 Emergency E UNRULY, [facility] [address] [facility] 14:26:00 02:37:00 VELMA 2022-10-24 2022-10-24 Outpatient Daniels_b DMG DMG [id number] -2022 Devoted 00:00:00 00:00:00 0506 [facility]ica l Group 2022-08-28 2022-08-28 Outpatient Daniels_b DMG DMG 40215 -2022 Devoted 00:00:00 00:00:00 0310 Medica l Group 2022-08-28 2022-08-28 Outpatient Daniels_b DMG DMG 48425 -2022 Devoted 00:00:00 00:00:00 0315 Medica l Group 2022-04-09 2022-04-09 Outpatient Nodal_J DMG DMG [id number] 022 Devoted 00:00:00 00:00:00 1020 Medica l Group 2022-01-02 2022-01-02 Outpatient Deshazo_T DMG DMG 15313 -2021 Devoted 03:37:00 03:37:00 0715 Medica l Group 2021-12-15 2021-12-15 Outpatient [facility] [id number] 782 [place] 08:00:00 08:00:00 RAJ YottaMark 2021-12-02 2021-12-02 Travel 1.2.840.1 1.2.822.603 0078 [id number] Methodi 00:00:00 00:00:[address] 3.430.2.7 0.2.7.3.698 Ho spita .3.865824 084.8 l .8 2021-11-13 2021-11-13 Transcribe Patience, 1.2.840.1 [id number] 21 [id number] Methodi 00:00:00 00:00:00 Orders Jose Miguel Hearn 82424.1.[address] 3.430.2.7 Hospit a .3.950149 l .8 2021-11-05 2021-11-05 Outpatient Deshazo_T DMG [facility] 12549 -2021 Devoted 12:00:00 12:00:00 0518 Medica l Group 2021-10-29 2021-10-29 Telephone Rosy, 1.2.840.1 [id number] Methodi 00:00:00 00:00:[address] Mohamed 3.430.2.7 Hospit a .3.881062 l .8 2021-08-20 2021-08-20 Outpatient Deshazo_T [facility] 37255 -2021 Devoted 12:30:00 12:30:00 0302 Medica l Group 2021-07-08 2021-07-08 Office Ann, 1.2.840.1 [id number] 1782 Methodi 13:00:00 14:25:36 Visit Bessie 25363.1.[address] [place] 3.430.2.7 Hosp jo-ann .3.561684 l .8 2021-07-08 2021-07-08 Telephone Anthony, 1.2.840.1 [id number] 2100 [id number] Methodi 00:00:00 00:00:[address] 3.430.2.7 Hospit a .3.618700 l .8 2021-07-08 2021-07-08 Travel 1.2.840.1 1.2.407.329 8700 109107 Methodi 00:00:00 00:00:[address] 3.430.2.7 0.2.7.3.698 Ho spita .3.131869 084.8 l .8 2021-07-03 2021-07-03 CAV Melany 2.16.840. 2.16.840.1. CLAC X22YA7 Devoted 19:00:00 20:00:00 Vladimir 1.409721. 044640.4.6. 467 Medical 4.6.79107 [id number] 2021-07-03 2021-07-03 Telephone Ann, 1.2.840.1 [id number] 2100 [id number] Methodi 00:00:00 00:00:[address] [facility] 3.430.2.7 Hosp jo-ann .3.616601 l .8 2021-06-24 2021-06-24 [facility] 54625 -[facility]21 Devoted 05:31:00 05:31:00 0104 Medica l Group 2021-06-23 2021-06-23 Telephone Anthony, 1.2.840.1 [id number] 2100 [id number] Methodi 00:00:00 00:00:[address] 3.430.2.7 Hospit a .3.915117 l .8 2021-06-04 2021-06-18 [facility] [place]. 1.2.840.1 1041 84267 [id number] Methodi 18:20:00 18:13:00 Encounter Rachel Brasher 42636.1.[address] [facility].430.[facility].7 Hospita Shanda Shahid .3.495540 l Aurelio Schumacher .8 2021-06-16 2021-06-16 Anesthesia Yousif, 1.2.840.1 [id number] Methodi 23:59:59 23:59:59 Event Alesia Coelho 45966.1.[address] 3.430.2.7 Hospit a .3.875291 l .8 2021-06-16 2021-06-16 Surgery Joe, 1.2.840.1 [id number] 8571 Methodi 13:30:00 17:45:[address] [facility] 3.430.2.7 Hosp jo-ann .3.291451 l .8 2021-06-16 2021-06-16 Anesthesia Jose Carlos, 1.2.840.1 [id number] 018 [id number] Methodi 15:19:00 17:19:00 Event Veto 64243.1.1 309 s t V. 3.430.2.7 Hospit a .3.216178 l .8 2021-06-10 2021-06-10 Surgery Juwan You 1.2.840.1 [id number] 05241 79605 Methodi 08:00:00 10:30:[address] 3.430.2.7 Hospit a .3.079621 l .8 2021-06-10 2021-06-10 Anesthesia Doc, 1.2.840.1 [id number] 945 4791205 Methodi 08:26:00 09:40:00 Event Sofi 41788.1.[address] Marquita 3.430.2.7 Hosp jo-ann .3.356649 l .8 2021-06-09 2021-06-09 Prep for Robert, 1.2.840.1 [id number] 847 3387750 Methodi 00:00:00 00:00:00 Surgery Gayle 96825.1.[address] 3.430.2.7 Hospit a .3.705272 l .8 2021-06-09 2021-06-09 Prep for Robert, 1.2.840.1 [id number] 729 [id number] Methodi 00:00:00 00:00:00 Surgery Gayle 23128.1.[address] 3.430.2.7 Hospit a .3.303169 l .8 2021-06-05 2021-06-05 Anesthesia Frankie Chowdhury 1.2.840.1 [id number] Methodi 10:16:00 11:41:00 Event hCandler Silverman 89733.1.[address] 3.430.2.7 Hospit a .3.391144 l .8 2021-06-05 2021-06-05 Surgery Juwan You 1.2.840.1 [id number] Methodi 09:30:00 11:05:[address] 3.430.2.7 Hospit a .3.212879 l .8 2021-06-03 2021-06-03 Prep for Anthony, 1.2.840.1 [id number] Methodi 00:00:00 00:00:00 Surgery Forrest 34416.1.[address] 3.430.2.7 Hospit a .3.615707 l .8 2021-06-03 2021-06-03 Telephone Adelita, 1.2.840.1 [id number] 840 [id number] Methodi 00:00:00 00:00:00 Crysandria 12855.1.1 218 s t 3.430.2.7 Hospit a .3.207332 l .8 2021-05-28 2021-05-28 Outpatient Adams_R DMG DMG 59198-5 021 Devoted 05:00:00 05:00:00 1208 Medica l Group 2021-05-27 2021-05-27 Patient Tam, 1.2.840.1 [id number] Methodi 00:00:00 00:00:00 Outreach Maria M 41366.1.[address] 3.430.2.7 Hospit a .3.945121 l .8 2021-05-27 2021-05-27 Travel 1.2.840.1 1.2.672.802 8527 300288 Methodi 00:00:00 00:00:[address] 3.430.2.7 0.2.7.3.698 Ho spita .3.038741 084.8 l .8 2021-05-27 2021-05-27 Orders Boles, 1.2.840.1 [id number] Methodi 00:00:00 00:00:00 Only Anila 77537.1.[address] 3.430.2.7 Hospit a .3.612273 l .8 2021-05-26 2021-05-26 Outpatient Adams_R DMG [facility] 51997-3 021 Devoted 03:30:00 03:30:00 1206 Medica l Group 2021-05-26 2021-05-26 Telephone Anthony, 1.2.840.1 [id number] 2100 337019 Methodi 00:00:00 00:00:[address] 3.430.2.7 Hospit a .3.304140 l .8 2021-05-19 2021-05-25 Hospital PatiJuwan 1.2.840.1 [id number] 2099 [id number] Methodi 06:00:00 15:59:00 Encounter Sheikh Alexysgina 75012.1.[address] Marilu Kochun 3.430.2.7 Hospita .3.626899 l .8 2021-05-21 2021-05-21 Outpatient [facility] 94205-0 021 Devoted 03:30:00 03:30:00 1201 Medica l Group 2021-05-19 2021-05-19 Anesthesia Adam, 1.2.840.1 [id number] Methodi 18:45:00 20:31:00 Event Sukhjinder 41794.1.[address] Kendall 3.430.2.7 Hospit a .3.590325 l .8 2021-05-19 2021-05-19 Surgery PatiJuwan 1.2.840.1 [id number] 61933 05448 Methodi 18:50:00 19:55:[address] 3.430.2.7 Hospit a .3.469255 l .8 2021-05-19 2021-05-19 Anesthesia AdamSukhjinder terry 1.2.840.1 [id number] Methodi 12:00:00 15:14:00 Event Hanane Ledezma 10356.1.[address] 3.430.2.7 Hospit a .3.158594 l .8 2021-05-192021-05-19 Surgery Juwan You 1.2.840.1 [id number] 27 Methodi 12:05:00 14:45:[address] 3.430.2.7 Hospit a .3.617548 l .8 2021-05-19 2021-05-19 Travel 1.2.840.1 1.2.948.829 7615 286366 Methodi 00:00:00 00:00:[address] 3.430.2.7 0.2.7.3.698 Ho spita .3.873061 084.8 l .8 2021-05-14 2021-05-14 Telephone Corin, 1.2.840.1 [id number] 21 [id number] Methodi 00:00:00 00:00:[address] 3.430.2.7 Hospit a .3.912664 l .8 2021-05-14 2021-05-14 Prep for Anthony, 1.2.840.1 [id number] 53284 Methodi 00:00:00 00:00:00 Surgery Forrest 92666.1.[address] 3.430.2.7 Hospit a .3.285689 l .8 2021-05-13 2021-05-13 Orders Doctor JOANNA 1.2.840.[address] [place] [address] 00:00:00 00:00:00 Only Unassigned, MAGDALENO 350.1.13.10 ity of [place] [facility] 4.2.7.2.686 Baljinder as [phone] [place] [address] Branch 2021-05-12 2021-05-12 Office Juwan You 1.2.840.1 [id number] 70572 Methodi 09:00:00 09:32:[address] 3.430.2.7 Hospit a .3.388086 l .8 2021-05-12 2021-05-12 Outpatient JUWAN [facility] [id number] 0895 [place] 00:00:00 00:00:[address] 2021-05-12 2021-05-12 Telephone Anthony, 1.2.840.1 [id number] 2099 929425 Methodi 00:00:00 00:00:[address] 3.430.2.7 Hospit a .3.714221 l .8 2021-05-12 2021-05-12 Travel 1.2.840.1 1.2.438.702 6865 494553 Methodi 00:00:00 00:00:[address] 3.430.2.7 0.2.7.3.698 Ho spita .3.311569 084.8 l .8 2021-05-08 2021-05-08 Orders Anthony, 1.2.840.1 [id number] 828237 4926 Methodi 00:00:00 00:00:00 Only Forrest 85689.1.[address] 3.430.2.7 Hospit a .3.696852 l .8 2021-05-08 2021-05-08 Telephone Boles, 1.2.840.1 [id number] Methodi 00:00:00 00:00:[address] 3.430.2.7 Hospit a .3.886784 l .8 2021-05-05 2021-05-05 Office Pati Juwan 1.2.840.1 [id number] 60 Methodi 14:00:00 15:41:[address] 3.430.2.7 Hospit a .3.321636 l .8 2021-05-05 2021-05-05 Travel 1.2.840.1 1.2.821.315 0375 378989 Methodi 00:00:00 00:00:[address] 3.430.2.7 0.2.7.3.698 Ho spita .3.256868 084.8 l .8 2021-05-01 2021-05-01 Telephone Joe, 1.2.840.1 [id number] 2100 270339 Methodi 00:00:00 00:00:00 Mando 69710.1.1 602 [facility] 3.430.2.7 Hosp jo-ann .3.103107 l .8 2021-04-08 2021-04-[address] [facility] [id number] 799 Univers 09:00:00 09:00:00 MONA ity of [facility] 2021-03-24 2021-03-24 Transition Misha Garcia 1.2.840.114 878 49303 Univers 00:00:00 00:00:00 of Care Missy Guzman 350.1.13.10 it y of [place] 4.2.7.2.686 Amisha lombardo [phone] [place] [address] Branch 2021-03-19 2021-03-21 [facility] Jimena [place] 1.2.840.1 1007 586162 [id number] Univers 08:24:00 23:08:00 Encounter Eze Dias 11645.1.1 ity of [place] 3.104.2.7 [place] .3.133491 Medica l .8 Branch 2021-03-21 2021-03-21 Outpatient DMG DMG 91856-8 021 Devoted 08:01:00 08:01:00 1001 Medica l Group 2021-03-19 2021-03-19 Orders Doctor 1.2.840.9 [id number] 235 Univers 00:00:00 00:00:00 Only Unassigned, 04233.1.1 ity of [place] 3.104.2.7 [place] .3.338231 Medica l .8 Branch 2021-03-19 2021-03-19 Travel 1.2.840.1 1.2.064.054 2196 4264 Univers 00:00:00 00:00:00 22662.1.1 350.1.13.10 ity of 3.104.2.7 4[place]7.3.698 [place] .3.391959 084.8 Medica l .8 Branch 2021-01-21 2021-01-29 Inpatient nullFlavo [facility] 38654 30092 Memoria 15:50:00 20:14:[address] [facility] 2021-01-21 2021-01-29 [facility] 32878 38698 10:50:00 15:14:00 Monisha 12 2021-01-21 2021-01-29 Inpatient U AYDEE [facility] CAR 7512 [facility] 10:50:00 15:14:00 MONISHA 2021-01-24 2021-01-24 Outpatient DMG DMG 70600-2 021 Devoted 08:00:00 08:00:00 0806 Medica l Group 2021-01-21 2021-01-21 Outpatient Aydee [facility] [id number] 30450 10:50:00 10:50:00 Monisha 12 2021-01-03 2021-01-03 Office Benedicto, DOMINIQUE 1.2.840.114 [id number] 903 07:44:43 09:30:54 Visit Alexandr ALTMAN 350.1.13.58 MEDICAL 9.2.7.2.686 [facility] [id number] 1 2021-01-03 2021-01-03 Office Benedicto UTP 1.2.840.114 [id number] 903 PA 07:44:43 09:30:54 Visit Alexandr ALTMAN 350.1.13.58 H [facility] MEDICAL 9.2.7.2.686 [facility] [id number] 1 2020-12-26 2020-12-[address] [facility] [id number] 561 [facility] 10:30:00 10:30:00 SENDIL ity [facility] 2020-12-24 2020-12-25 Outpatient nullFlavo [facility] 966 [id number] Memoria 15:32:00 04:59:00 r Disease 11 [facility] 2020-12-24 2020-12-24 Outpatient Wright, [facility] [id number] 10:32:00 23:59:00 Hui Madden 2020-12-24 2020-12-24 Outpatient WRIGHT, [facility] 75[address] [facility] 10:32:00 23:59:00 HUI 2020-11-122020-11-[address] [facility] [id number] Univers 09:00:00 09:00:00 WENTONG ity of [facility] 2020-10-27 2020-10-27 Keyona Kimble [facility] 1.2.840.114 [id number] 98 00:00:00 00:00:00 (Out) Oz Lehman 350.1.13.10 [place] 4.2.7.2.686 Professio [phone] [address] 2020-10-27 2020-10-27 [facility] 1.2.840.114 [id number] 98 Univers 00:00:00 00:00:00 (Out) Oz Lehman 350.1.13.10 [place] of [place] [phone] Mn dical [address] 2020-10-24 2020-10-24 Orders Doctor JOANNA 1.2.840.114 [id number] 42 00:00:00 00:00:00 Only Unassigned, MAGDALENO 350.1.13.10 [place] [facility] 4.2.7.2.686 [id number] [facility] 2020-10-24 2020-10-24 Orders Doctor JOANNA 1.2.840.114 [id number] Univers 00:00:00 00:00:00 Only Unassigned, MAGDALENO 350.1.13.10 ity of [place] [facility] 4.2.7.2.686 Baljinder as [phone] [address] 2020-09-24 2020-09-24 Refill [facility] 1.2.840.114 [id number] 24 00:00:00 00:00:00 Jose Luis Lehman 350.1.13.10 [place] 4.2.7.2.686 Professio [phone] [address] 2020-09-24 2020-09-24 [facility]ill [facility] 1.2.840.114 [id number] 24 Univers 00:00:00 00:00:00 Jose Luis Lehman 350.1.13.10 i ty of [place] [phone] Me dical nal [address] 2020-09-09 2020-09-09 Patient [facility] 1.2.840.114 [id number] 44 00:00:00 00:00:00 Outreach Earl PRIMARY 350.1.13.10 Manuel CARE 4.2.7.2.686 PAVILLION [id number] 388 2020-09-09 2020-09-09 Patient [facility] 1.2.840.114 [id number] 44 Univers 00:00:00 00:00:00 Outreach Earl PRIMARY 350.1.13.10 i ty of [place]7.2.[place] [phone] Mn dical [address] 2020-08-06 2020-08-06 [facility] [id number] Univers 14:30:00 14:30:00 WENTONG ity [facility] 2020-08-05 2020-08-05 [facility] [id number] Univers 13:30:00 13:30:00 DEJA ity [facility] 2020-07-23 2020-07-23 [facility] 1.2.840.114 [id number] Univers 13:39:08 23:59:00 Encounter Deja PRIMARY 350.1.13.10 ity of [place] 4[place]7.2.[place] [phone] Mn dical 807 [place] 2020-07-23 2020-07-23 Office [facility] 1.2.371.261 1628 5976 13:31:20 14:37:36 Visit Deja PRIMARY 350.1.13.10 A CARE 4.2.7.2.686 PAVILLION [id number] 198 2020-07-23 2020-07-23 Office [facility] 1.2.248.643 9196 5976 Univers 13:31:20 14:37:36 Visit Deja PRIMARY 350.1.13.10 ity of [place]2.[place] [phone] Mn dicor [address] [place] 2020-07-23 2020-07-[address] [facility] [id number] Univers 13:30:00 13:30:00 DEJA ity [facility] 2020-07-09 2020-07-[address] [facility] [id number] Univers 09:00:00 09:00:00 ity [facility] 2020-07-03 2020-07-03 Telephone [facility] 1.2.777.391 2213 0697 Univers 00:00:00 00:00:00 Sendbhavana Lehman 350.1.13.10 [place] of [place] [phone] Mn dicor nal 9 [facility] 2020-06-27 2020-06-27 Office [facility] 1.2.840.114 [id number] Univers 10:05:43 11:00:00 Visit Sendbhavana Lehman 350.1.13.10 ity of [place].2.[place] [phone] Mn dicor nal [address] [address] 2020-06-27 2020-06-27 Office [facility] 1.2.840.114 [id number] 29 Univers 10:05:43 11:00:00 Visit Oz LEHMAN 350.1.13.10 ity of [place].2.7.2.[place] PROF[place] [phone] Mn dicor NAL [address] [place] [address] 2020-06-27 2020-06-27 [facility] [id number] Univers 09:30:00 11:00:00 SENDIL ity [facility] 2020-06-27 2020-06-27 [facility] [id number] Univers 09:30:00 09:30:00 SENDIL ity [facility] 2020-05-28 2020-05-28 Laboratory Pc, Adc Echo Room 1 - [facility] 1 .2.840.114 [id number] Univers 08:01:11 08:48:06 Only Oz Kimble 350.1.13. 10 it[place] of [place]7.2.[place] [phone] Mn dical nal 059 [facility] 2020-05-28 2020-05-[address] [facility] [id number] Univers 08:00:00 08:00:00 ity [facility] 2020-05-10 2020-05-10 Nurse Visit, [facility] Nurse [facility] 1.2.840.1 14 [id number] Univers 08:31:07 08:43:46 Visit Oz Kimble 350.1.13. 10 it[place] of [place]2.[place] [phone] [address] 2020-05-10 2020-05-10 [facility] [id number] Univers 08:30:00 08:30:00 [facility] [place] [facility] 2020-05-07 2020-05-[address] [facility] [id number] Univers 08:00:00 08:00:00 ity [facility] 2020-05-01 2020-05-01 Office [facility] 1.2.840.114 [id number] Univers 11:02:55 12:04:48 Visit Jose Luis Lehman 350.1.13.10 i ty of [place] [phone] [facility] 220 [facility] 2020-05-01 2020-05-01 Out[facility] [id number] Univers 10:30:00 10:30:00 [facility] [place] [facility] 2020-04-25 2020-04-25 Office [facility] 1.2.840.114 [id number] Univers 10:07:58 10:48:50 Visit Oz Lehman 350.1.13.10 it[place] of [place] [phone] Mn dicor nal 059 [facility] 2020-04-25 2020-04-25 Outpatient R LAMIN, [facility] [id number] Univers 10:00:00 10:00:00 SENDIL ity [facility] 2020-04-25 2020-04-25 Orders Doctor JOANNA 1.2.840.114 [id number] Univers 00:00:00 00:00:00 Only Unassigned, MAGDALENO 350.1.13.10 ity of [place] [facility] 4.2.7.2.686 Baljinder as [phone] [address] 2020-04-05 2020-04-05 Outpatient R KIMBLE, [facility] [id number] Univers 09:30:00 09:30:00 SENDIL ity [facility] 2020-04-03 2020-04-03 Supervisor [employer] 2, Adc Lab [facility] 1..840.114 [id number] Univers 13:13:38 13:28:38 Visit Adum, Mona Lehman 350.1.13.10 ity [facility] 4.2.7.2.[place] [phone] Mn dical nal 353 [facility] 2020-04-03 2020-04-03 Outpatient R AD, [facility] [id number] Univers 13:00:00 13:00:00 MONA low [facility] 2020-04-02 2020-04-02 [facility] 1.2.840.114 [id number] Univers 09:00:33 09:54:22 Visit Mona Lehman 350.1.13.10 ity [facility] 4.2.7.2.[place] [phone] Mn dical nal 134 [facility] 2020-04-02 2020-04-02 Outpatient R AD, [facility] [id number] Univers 08:30:00 08:30:00 MONA ity [facility] 2020-04-02 2020-04-02 [facility] [id number] Univers 08:30:00 08:30:00 MONA itcaron [facility] 2020-04-02 2020-04-02 Emergency Khan, [facility] 1.2.840.114 [id number] Univers 00:24:00 01:09:00 Marlin Lehman [id number] [id number] [phone] [facility] [address] [place] 2020-04-02 2020-04-02 Orders Doctor JOANNA 1.2.840.114 [id number] Univers 00:00:00 00:00:00 Only Unassigned, MAGDALENO [id number] ity of [facility] [id number] Baljinder as [phone] [facility] [address] [place] 2020-03-16 2020-03-16 Telephone [facility] 1.2.840.114 [id number] Univers 00:00:00 00:00:00 Yury Lehman [id number] [id number] [phone] Mn dical nal 134 [facility] 2020-03-08 2020-03-08 Outpatient R [facility] [id number] Univers 11:00:00 11:00:00 LIMA currie [facility] 2020-03-07 2020-03-07 Telephone [facility] 1.2.840.114 [id number] Univers 00:00:00 00:00:00 Lima Lehman [id number] [id number] [phone] Mn dical nal 188 [facility] 2020-02-06 2020-02-06 Outpatient R [facility] [id number] Univers 09:30:00 09:30:00 BRANDON itcaron of [facility] 2020-02-06 2020-02-06 Office [facility] 1.2.840.114 [id number] Univers 08:57:01 09:24:05 Visit Brandon Lehman [id number] i ty of [id number] [phone] Mn dical nal 044 [facility] 2020-01-25 2020-01-31 Inpatient 1 Rei Waldron [facility] GPY [id number] 21:31:00 18:15:00 Chivo, [facility] 2020-01-24 2020-01-[address] [facility] [id number] Univers 09:45:00 09:45:00 HUMAIR ity [facility] 2020-01-23 2020-01-[address] [facility] [id number] Univers 10:30:00 10:30:00 HUMAIR ity [facility] 2019-12-18 2019-12-[address] [facility] [id number] Univers 08:00:00 08:00:00 YISSEL ity [facility] 2019-12-04 2019-12-[address] [facility] [id number] Univers 14:15:00 14:15:00 BRANDON [facility] 2019-11-06 2019-11-06 TelemedicMAGDY Ayala 1.2.840.114 [id number] Univers 07:49:37 08:46:52 ne Visit [facility]issel [id number] [facility] [id number] [facility] [phone] [facility] BLDG. [address] 2019-11-06 2019-11-[address] [facility] [id number] Univers 08:00:00 08:00:00 YISSEL ity [facility] 2019-10-01 2019-10-01 Emergency [facility] [id number] Univers 15:47:29 19:01:00 Stacie Lehman [id number] i ty of [place] [id number] [facility] [phone] [facility] [address] 2019-09-05 2019-09-[address] [facility] [id number] Univers 13:30:00 13:30:00 [facility] 2019-08-[facility] 2019-08-28 Outpatient R PEG ZE[facility] [id number] Univers 15:00:00 15:00:00 ity [facility] 2019-02-27 2019-02-27 [facility]phone [facility] 1.2.840.114 [id number] Univers 00:00:00 00:00:00 Adán T SPECIALTY [id number] [id number] [phone] Mn jim MORALES 188 [facility] 2019-02-25 2019-02-25 Telephone Kory [facility] 1.2.840.114 [id number] Univers 00:00:00 00:00:00 Adán T SPECIALTY [id number] [id number] [phone] Mn jim MORALES 205 [facility] 2019-02-22 2019-02-22 Brigham [facility] Oz Kimble 1.2.8 40.114 [id number] Univers 09:19:22 23:59:00 Encounter Outpt-Josy, [facility] [place] 350.1.13.10 ity of Hospital 4.2.7.2.686 Baljinder as [phone] [facility] [address] 2019-02-22 2019-02-22 [facility] Oz Kimble 1.2.8 40.114 [id number] Univers 08:00:00 09:18:00 Encounter Outpt-Josy, [facility] [place] 350.1.13.10 ity of Hospital 4.2.7.2.686 Baljinder as [id number] [facility] [address] 2019-02-17 2019-02-17 Office Alexarah [facility] 1.2.840.114 [id number] Univers 13:09:08 13:54:39 Visit Gary gray [facility] 350.1.13.10 it[place] [id number] [facility] [address] 2019-02-17 2019-02-17 Orders Doctor JOANNA 1.2.840.114 [id number] Univers 00:00:00 00:00:00 Only Unassigned, MAGDALENO 350.1.13.10 ity of [facility] 4.2.7.2.686 Baljinder as [id number] [facility] [address] 2019-01-25 2019-01-25 Telephone Traci Kimble [id number] Univers 00:00:00 00:00:00 [place] 350.1.13.10 ity of Hospital 4.2.7.2.686 Baljinder as [phone] [address] 2019-01-25 2019-01-25 Telephone KimbleTraci olivo [id number] Univers 00:00:00 00:00:00 Sendbhavana [place] 350.1.13.10 ity of [facility] 4.2.7.2.686 Baljinder as [id number] [address] 2019-01-20 2019-01-20 Office [facility] 1.2.840.114 [id number] Univers 08:55:54 09:56:43 Visit Oz Lehman 350.1.13.10 [place] [phone] Mn dical nal 059 [facility] 2019-01-14 2019-01-15 Emergency [place], TRAUMA 1.2.840.114 [id number] Univers 18:20:35 00:24:00 [facility] 350.1.13.10 it [place] [id number] [facility] [address] 2019-01-13 2019-01-13 Office [facility] 1.2.840.114 [id number] Univers 08:10:44 09:19:41 Visit Lima Lehman 350.1.13.10 ity [place] [phone] Mn dical nal 205 [facility] 2018-05-24 2018-05-[address], [facility] [id number] [facility] 00:00:00 00:00:00 LY 2016-07-24 2016-07-30 Inpatient [facility] [id number] Memoria 02:04:00 16:20:00 sj Banuelos [address] [place] [address] 2016-07-23 2016-07-30 Outpatient Yaquelin [facility] [id number] 20:04:00 10:20:00 Luna Segundo 2016-06-10 2016-06-15 Inpatient [facility] [id number] Memoria 16:02:00 18:23:[address] 2016-06-10 2016-06-15 Outpatient Franck [facility] [id number] 10:02:00 12:23:00 Joe Sanchez 2014-06-26 2014-06-26 [facility] [id number] Memoria 05:25:00 15:14:00 Emergency r Forman 08 [facility] 2014-06-25 2014-06-26 Outpatient Courtney, 2.16.840. 2.16.840. 1. [id number] 23:25:00 09:14:00 Atul [id number] Cem 3.615.0.1 5.0.052 86 3406-10-25 2013-04-15 Outpatient 2.16.840. 2.16.840.1. 4 [id number] Memoria 21:04:00 01:45:00 [id number]. [id number] 07 l 3.615.0.1 5.0.101 Jake n [facility] 2013-04-14 2013-04-15 Outpatient 2.16.840. 2.16.840.1. 4 [id number] Memoria 21:04:00 01:45:00 [id number]. [id number] 07 l 3.615.0.1 5.0.101 Jake n [facility] 2013-04-14 2013-04-15 Outpatient 2.16.840. 2.16.840.1. 4 [id number] Memoria 21:04:00 01:45:00 [id number] 07 l 3.615.0.1 5.0.101 Jake n [facility] 2013-04-14 2013-04-15 Outpatient 2.16.840. 2.16.840.1. 4 [id number] Memoria 21:04:00 01:45:00 [id number]. [id number] 07 l 3.615.0.1 5.0.101 Jake n 01 [facility] 2013-04-14 2013-04-15 Outpatient 2.16.840. 2.16.840.1. 4 [id number] Memoria 21:04:00 01:45:00 [id number]. [id number] 07 l 3.615.0.1 5.0.101 Jake n 01 [facility] 2013-04-14 2013-04-15 Emergency nullFlavo [id number] Memoria 21:04:00 01:45:00 r [facility] 07 [facility] 2012-03-14 2012-03-14 Emergency nullFlavo [id number] Memoria 16:32:00 22:39:[address] 2011-11-28 2011-11-30 OU nullFlavo [facility] [id number] Memoria 12:16:00 20:40:[address] [facility] 03 [facility] 2011-09-18 2011-09-18 Emergency nullFlavo [facility] [id number] Memoria 08:23:00 13:34:[address] [facility] 02 [facility] 2011-09-01 2011-09-09 Inpatient nullFlavo [facility] [id number] Memoria 01:40:00 15:00:[address] [facility] 01 [facility] 2011-08-19 2011-08-23 Inpatient nullFlavo [facility] [id number] Memoria 14:25:00 15:28:00 r Medical 00 [facility] Results Test Description Test Time Test Comments Results Result Comments Source AFB culture 2021-07-22 18:13:19 Test Item Value Reference Range Interpretation Comme nts AFB culture isolate No growth after 6 weeks of Specimen InformationSpecimen (test code = 543-9) incubation. Source: DrainageSpecimen Site: Thigh: infected wound right thigh [facility] [id number] 18:13:19 Test Item Value Reference Range Interpretation Comments AFB culture No growth Specimen isolate (test after 6 weeks InformationSp ecimen code = 543-9) of Source: [place] geSpecimen incubation. Site: Thigh: in fected wound right [facility] [id number] 18:13:19 Test Item Value Reference Range Interpretation Comments AFB culture No growth Specimen isolate (test after 6 weeks InformationSp ecimen code = 543-9) of Source: [place] geSpecimen incubation. Site: Thigh: in fected wound right [facility] [id number] 18:13:19 Test Item Value Reference Range Interpretation Comments AFB culture No growth Specimen isolate (test after 6 weeks InformationSp ecimen code = 543-9) of Source: [place] geSpecimen incubation. Site: Thigh: in fected wound right [facility] [id number] 18:13:19 Test Item Value Reference Range Interpretation Comments AFB culture No growth Specimen isolate (test after 6 weeks InformationSp ecimen code = 543-9) of Source: [place] geSpecimen incubation. Site: Thigh: in fected wound right [facility]2022-02-01 18:13:19 Test Item Value Reference Range Interpretation Comments AFB culture No growth Specimen isolate (test after 6 weeks InformationSp ecimen code = 543-9) of Source: [place] geSpecimen incubation. Site: Thigh: in fected wound right [facility]2022-02-01 18:13:19 Test Item Value Reference Range Interpretation Comments AFB culture No growth Specimen isolate (test after 6 weeks InformationSp ecimen code = 543-9) of Source: [place] geSpecimen incubation. Site: Thigh: in fected wound right [facility]2022-02-01 18:13:19 Test Item Value Reference Range Interpretation Comments AFB culture No growth Specimen isolate (test after 6 weeks InformationSp ecimen code = 543-9) of Source: [place] geSpecimen incubation. Site: Thigh: in fected wound right [facility] [id number] 18:13:19 Test Item Value Reference Range Interpretation Comments AFB culture No growth Specimen isolate (test after 6 weeks InformationSp ecimen code = 543-9) of Source: [place] geSpecimen incubation. Site: Thigh: in fected wound right [facility] [id number] 18:13:19 Test Item Value Reference Range Interpretation Comments AFB culture No growth Specimen isolate (test after 6 weeks InformationSp ecimen code = 543-9) of Source: [place] geSpecimen incubation. Site: Thigh: in fected wound [facility] [id number] 18:13:19 Test Item Value Reference Range Interpretation Comments AFB culture No growth Specimen isolate (test after 6 weeks InformationSp ecimen code = 543-9) of Source: [place] geSpecimen incubation. Site: Thigh: in fected wound right [facility] [id number] 18:15:13 Test Item Value Reference Range Interpretation Comments Fungus culture No growth Specimen isolate (test after 4 weeks InformationSp ecimen code = 1441) of Source: TissueS pecimen incubation. [facility]: [facility] [id number] 18:15:13 Test Item Value Reference Range Interpretation Comments Fungus culture No growth Specimen isolate (test after 4 weeks InformationSp ecimen code = 1441) of Source: TissueS pecimen incubation. [facility]: [facility] [id number] 18:15:13 Test Item Value Reference Range Interpretation Comments Fungus culture No growth Specimen isolate (test after 4 weeks InformationSp ecimen code = 1441) of Source: TissueS pecimen incubation. [facility]: [facility] [id number] 18:15:13 Test Item Value Reference Range Interpretation Comments Fungus culture No growth Specimen isolate (test after 4 weeks InformationSp ecimen code = 1441) of Source: TissueS pecimen incubation. [facility]: [facility] [id number] 18:15:13 Test Item Value Reference Range Interpretation Comments Fungus culture No growth Specimen isolate (test after 4 weeks InformationSp ecimen code = 1441) of Source: TissueS pecimen incubation. [facility]: [facility] [id number] 18:15:13 Test Item Value Reference Range Interpretation Comments Fungus culture No growth Specimen isolate (test after 4 weeks InformationSp ecimen code = 1441) of Source: TissueS pecimen incubation. Site: [facility] [id number] 18:15:13 Test Item Value Reference Range Interpretation Comments Fungus culture No growth Specimen isolate (test after 4 weeks InformationSp ecimen code = 1441) of Source: TissueS pecimen incubation. [facility]2022-01-25 18:15:13 Test Item Value Reference Range Interpretation Comments Fungus culture No growth Specimen isolate (test after 4 weeks InformationSp ecimen code = 1441) of Source: TissueS pecimen incubation. Site: [place] 058062-01-25 18:15:13 Test Item Value Reference Range Interpretation Comments Fungus culture No growth Specimen isolate (test after 4 weeks InformationSp ecimen code = 1441) of Source: TissueS pecimen incubation. Site: [place] 058062-01-25 18:15:13 Test Item Value Reference Range Interpretation Comments Fungus culture No growth Specimen isolate (test after 4 weeks InformationSp ecimen code = 1441) of Source: TissueS pecimen incubation. Site: [place] 058062-01-25 18:15:13 Test Item Value Reference Range Interpretation Comments Fungus culture No growth Specimen isolate (test after 4 weeks InformationSp ecimen code = 1441) of Source: TissueS pecimen incubation. Site: [facility]2022-01-25 18:15:13 Test Item Value Reference Range Interpretation Comments Fungus culture No growth Specimen isolate (test after 4 weeks InformationSp ecimen code = 1441) of Source: TissueS pecimen incubation. Site: [facility]2022-01-25 18:15:13 Test Item Value Reference Range Interpretation Comments Fungus culture No growth Specimen isolate (test after 4 weeks InformationSp ecimen code = 1441) of Source: TissueS pecimen incubation. Site: [facility]2022-01-01 14:31:13 Test Item Value Reference Range Interpretation Comments Anaerobic No anaerobic Specimen culture isolate organisms InformationS pecimen (test code = isolated. Source: TissueS pecimen 552) Site: [place] 941142-01-01 14:31:13 Test Item Value Reference Range Interpretation Comments Anaerobic No anaerobic Specimen culture isolate organisms InformationS pecimen (test code = isolated. Source: TissueS pecimen 552) Site: [place] 941142-01-01 14:31:13 Test Item Value Reference Range Interpretation Comments Anaerobic No anaerobic Specimen culture isolate organisms InformationS pecimen (test code = isolated. Source: TissueS pecimen 552) Site: [address]01[address]01 14:31:13 Test Item Value Reference Range Interpretation Comments Anaerobic No anaerobic Specimen culture isolate organisms InformationS pecimen (test code = isolated. Source: TissueS pecimen 552) Site: [place] [address]-01-01 14:31:13 Test Item Value Reference Range Interpretation Comments Anaerobic No anaerobic Specimen culture isolate organisms InformationS pecimen (test code = isolated. Source: TissueS pecimen 552) Site: [place] [address]-01-01 14:31:13 Test Item Value Reference Range Interpretation Comments Anaerobic No anaerobic Specimen culture isolate organisms InformationS pecimen (test code = isolated. Source: TissueS pecimen 552) Site: [address]01 14:31:13 Test Item Value Reference Range Interpretation Comments Anaerobic No anaerobic Specimen culture isolate organisms InformationS pecimen (test code = isolated. Source: TissueS pecimen 552) Site: [place] [address]-01-01 14:31:13 Test Item Value Reference Range Interpretation Comments Anaerobic No anaerobic Specimen culture isolate organisms InformationS pecimen (test code = isolated. Source: TissueS pecimen 552) Site: [place] 941142-01-01 14:31:13 Test Item Value Reference Range Interpretation Comments Anaerobic No anaerobic Specimen culture isolate organisms InformationS pecimen (test code = isolated. Source: TissueS pecimen 552) Site: [place] 941142-01-01 14:31:13 Test Item Value Reference Range Interpretation Comments Anaerobic No anaerobic Specimen culture isolate organisms InformationS pecimen (test code = isolated. Source: TissueS pecimen 552) Site: [place] 941142-01-01 14:31:13 Test Item Value Reference Range Interpretation Comments Anaerobic No anaerobic Specimen culture isolate organisms InformationS pecimen (test code = isolated. Source: TissueS pecimen 552) Site: [place] [address]-01-01 14:31:13 Test Item Value Reference Range Interpretation Comments Anaerobic No anaerobic Specimen culture isolate organisms InformationS pecimen (test code = isolated. Source: TissueS pecimen 552) Site: [facility] [id number] 14:31:13 Test Item Value Reference Range Interpretation Comments Anaerobic No anaerobic Specimen culture isolate organisms InformationS martha (test code = isolated. Source: TissueS pecimen 552) Site: [facility] [id number] 16:51:58 Test Item Value Reference Range Interpretation Comments Gram stain No WBC's or Specimen isolate (test organisms seen. Information Specimen code = 1469) Source: TissueS pecimen [facility]: [facility] [id number] 16:51:58 Test Item Value Reference Range Interpretation Comments Aerobic culture No growth Specimen isolate (test after 3 days. InformationSp ecimen code = 498) Source: [facility] [id number] 16:51:58 Test Item Value Reference Range Interpretation Comments Fungus smear No fungi Specimen (test code = observed. InformationSpec imen Source: 1443) TissueSpecimen Site: [facility] [id number] 16:51:58 Test Item Value Reference Range Interpretation Comments Gram stain No WBC's or Specimen isolate (test organisms seen. Information Specimen code = 1469) Source: [facility] [id number] 16:51:58 Test Item Value Reference Range Interpretation Comments Aerobic culture No growth Specimen isolate (test after 3 days. InformationSp ecimen code = 498) Source: [facility] [id number] 16:51:58 Test Item Value Reference Range Interpretation Comments Fungus smear No fungi Specimen (test code = observed. InformationSpec imen Source: 1443) TissueSpecimen Site: [facility] [id number] 16:51:58 Test Item Value Reference Range Interpretation Comments Gram stain No WBC's or Specimen isolate (test organisms seen. Information Specimen code = 1469) Source: [facility] [id number] 16:51:58 Test Item Value Reference Range Interpretation Comments Aerobic culture No growth Specimen isolate (test after 3 days. InformationSp ecimen code = 498) Source: TissueS pecimen Site: [facility] [id number] 16:51:58 Test Item Value Reference Range Interpretation Comments Fungus smear No fungi Specimen (test code = observed. InformationSpec imen Source: 1443) [facility]2021-12-31 16:51:58 Test Item Value Reference Range Interpretation Comments Gram stain No WBC's or Specimen isolate (test organisms seen. Information Specimen code = 1469) Source: [facility] Site: [facility]2021-12-31 16:51:58 Test Item Value Reference Range Interpretation Comments Aerobic culture No growth Specimen isolate (test after 3 days. InformationSp ecimen code = 498) Source: [facility] Site: [facility]2021-12-31 16:51:58 Test Item Value Reference Range Interpretation Comments Fungus smear No fungi Specimen (test code = observed. InformationSpec imen Source: 1443) [facility] Site: [facility]2021-12-31 16:51:58 Test Item Value Reference Range Interpretation Comments Gram stain No WBC's or Specimen isolate (test organisms seen. Information Specimen code = 1469) Source: [facility] Site: [facility]2021-12-31 16:51:58 Test Item Value Reference Range Interpretation Comments Aerobic culture No growth Specimen isolate (test after 3 days. InformationSp ecimen code = 498) Source: [facility] Site: [facility]2021-12-31 16:51:58 Test Item Value Reference Range Interpretation Comments Fungus smear No fungi Specimen (test code = observed. InformationSpec imen Source: 1443) [facility]2021-12-31 16:51:58 Test Item Value Reference Range Interpretation Comments Gram stain No WBC's or Specimen isolate (test organisms seen. Information Specimen code = 1469) Source: [facility] Site: [facility]2021-12-31 16:51:58 Test Item Value Reference Range Interpretation Comments Aerobic culture No growth Specimen isolate (test after 3 days. InformationSp ecimen code = 498) Source: [facility] Site: [facility]2021-12-31 16:51:58 Test Item Value Reference Range Interpretation Comments Fungus smear No fungi Specimen (test code = observed. InformationSpec imen Source: 1443) TissueSpecimen Site: [facility] [id number] 16:51:58 Test Item Value Reference Range Interpretation Comments Gram stain No WBC's or Specimen isolate (test organisms seen. Information Specimen code = 1469) Source: [facility] [id number] 16:51:58 Test Item Value Reference Range Interpretation Comments Aerobic culture No growth Specimen isolate (test after 3 days. InformationSp ecimen code = 498) Source: [facility] Site: Thigh [facility] [id number] 16:51:58 Test Item Value Reference Range Interpretation Comments Fungus smear No fungi Specimen (test code = observed. InformationSpec imen Source: 1443) [facility] Site: [facility]2021-12-31 16:51:58 Test Item Value Reference Range Interpretation Comments Gram stain No WBC's or Specimen isolate (test organisms seen. Information Specimen code = 1469) Source: [facility] Site: [facility] [id number] 16:51:58 Test Item Value Reference Range Interpretation Comments Aerobic culture No growth Specimen isolate (test after 3 days. InformationSp ecimen code = 498) Source: [facility] Site: [facility]2021-12-31 16:51:58 Test Item Value Reference Range Interpretation Comments Fungus smear No fungi Specimen (test code = observed. InformationSpec imen Source: 1443) [facility]: [facility] [id number] 16:51:58 Test Item Value Reference Range Interpretation Comments Gram stain No WBC's or Specimen isolate (test organisms seen. Information Specimen code = 1469) Source: [facility] [id number] 16:51:58 Test Item Value Reference Range Interpretation Comments Aerobic culture No growth Specimen isolate (test after 3 days. InformationSp ecimen code = 498) Source: [facility] Site: [facility] [id number] 16:51:58 Test Item Value Reference Range Interpretation Comments Fungus smear No fungi Specimen (test code = observed. InformationSpec imen Source: 1443) TissueSpecimen Site: [facility] [id number] 16:51:58 Test Item Value Reference Range Interpretation Comments Gram stain No WBC's or Specimen isolate (test organisms seen. Information Specimen code = 1469) Source: [facility] [id number] 16:51:58 Test Item Value Reference Range Interpretation Comments Aerobic culture No growth Specimen isolate (test after 3 days. InformationSp ecimen code = 498) Source: [facility]: [facility] [id number] 16:51:58 Test Item Value Reference Range Interpretation Comments Fungus smear No fungi Specimen (test code = observed. InformationSpec [employer]Cy[employer] Source: 1443) [facility]: [facility]2021-12-31 16:51:58 Test Item Value Reference Range Interpretation Comments Gram stain No WBC's or Specimen isolate (test organisms seen. Information Specimen code = 1469) Source: [facility] Site: [facility] [id number] 16:51:58 Test Item Value Reference Range Interpretation Comments Aerobic culture No growth Specimen isolate (test after 3 days. InformationSp ecimen code = 498) Source: [facility] Site: [facility] [id number] 16:51:58 Test Item Value Reference Range Interpretation Comments Fungus smear No fungi Specimen (test code = observed. InformationSpec [employer] Source: 1443) [facility]: [facility] [id number] 16:51:58 Test Item Value Reference Range Interpretation Comments Gram stain No WBC's or Specimen isolate (test organisms seen. Information Specimen code = 1469) Source: [facility] Site: [facility] [id number] 16:51:58 Test Item Value Reference Range Interpretation Comments Aerobic culture No growth Specimen isolate (test after 3 days. InformationSp ecimen code = 498) Source: [facility] [id number] 16:51:58 Test Item Value Reference Range Interpretation Comments Fungus smear No fungi Specimen (test code = observed. InformationSpec [employer] Source: 1443) TissueSpecime Site: [facility] [id number] 16:51:58 Test Item Value Reference Range Interpretation Comments Gram stain No WBC's or Specimen isolate (test organisms seen. Information Specimen code = 1469) Source: TissueS pecimen [facility] [id number] 16:51:58 Test Item Value Reference Range Interpretation Comments Aerobic culture No growth Specimen isolate (test after 3 days. InformationSp ecimen code = 498) Source: TissueS pecimen [facility] 16:51:58 Test Item Value Reference Range Interpretation Comments Fungus smear No fungi Specimen (test code = observed. InformationSpec imen Source: 1443) TissueSpecimen Site: Thigh [facility] zxuyrnr5832-87-94 17:00:57 Test Item Value Reference Range Interpretation Comments POC glucose (test code 79 mg/dL 65-99 Opera tor Name: Eboni = 74838-2) AmiDevice ID: [id number] [facility] [id number] 17:00:57 Test Item Value Reference Range Interpretation Comments POC glucose (test code 79 mg/dL 65-99 Opera tor Name: Eboni = 82679-5) AmiDevice ID: [id number] [facility] [id number] 17:00:57 Test Item Value Reference Range Interpretation Comments POC glucose (test code 79 mg/dL 65-99 Opera tor Name: Eboni = 40901-8) AmiDevice ID: [id number] [facility] [id number] 17:00:57 Test Item Value Reference Range Interpretation Comments POC glucose (test code 79 mg/dL 65-99 Opera tor Name: Eboni = 62174-3) AmiDevice ID: [id number] [facility] [id number] 17:00:57 Test Item Value Reference Range Interpretation Comments POC glucose (test code 79 mg/dL 65-99 Opera tor Name: Eboni = 34327-8) AmiDevice ID: [id number] [facility] [id number] 17:00:57 Test Item Value Reference Range Interpretation Comments POC glucose (test code 79 mg/dL 65-99 Opera tor Name: Eboni = 13980-2) AmiDevice ID: [id number] [facility] [id number] 17:00:57 Test Item Value Reference Range Interpretation Comments POC glucose (test code 79 mg/dL 65-99 Opera tor Name: Eboni = 14996-8) AmiDevice ID: [id number] [facility] [id number] 17:00:57 Test Item Value Reference Range Interpretation Comments POC glucose (test code 79 mg/dL 65-99 Opera tor Name: Eboni = 33225-9) AmiDevice ID: [id number] [facility] [id number] 17:00:57 Test Item Value Reference Range Interpretation Comments POC glucose (test code 79 mg/dL 65-99 Opera tor Name: Eboni = 02785-0) AmiDevice ID: [id number] [facility] [id number] 17:00:57 Test Item Value Reference Range Interpretation Comments POC glucose (test code 79 mg/dL 65-99 Opera tor Name: Eboni = 04570-8) AmiDevice ID: [id number] [facility] [id number] 17:00:57 Test Item Value Reference Range Interpretation Comments POC glucose (test code 79 mg/dL 65-99 Opera tor Name: Eboni = 49442-8) AmiDevice ID: [id number] [facility] [id number] 17:00:57 Test Item Value Reference Range Interpretation Comments POC glucose (test code 79 mg/dL 65-99 Christophera tor Name: Eboni = 74609-0) AmiDevice ID: [id number] [facility] [id number] 17:00:57 Test Item Value Reference Range Interpretation Comments POC glucose (test code 79 mg/dL 65-99 Opera tor Name: Eboni = 10291-0) AmiDevice ID: [id number] [facility] , [id number] 20:46:00 Test Item Value Reference Range Interpretation Comments test urine, POC (test Negative code = 5870245) Internal QC (test code = 257) QC acceptable [facility] , [id number] 20:46:00 Test Item Value Reference Range Interpretation Comments test urine, POC (test Negative code = 5781039) Internal QC (test code = 257) [facility] [id number] 20:46:00 Test Item Value Reference Range Interpretation Comments test urine, POC (test Negative code = 9836396) Internal QC (test code = 257) QC [facility] [id number] 20:46:00 Test Item Value Reference Range Interpretation Comments test urine, POC (test Negative code = 5831284) Internal QC (test code = 257) QC [facility] [id number] 20:46:00 Test Item Value Reference Range Interpretation Comments test urine, POC (test Negative code = 0552330) Internal QC (test code = 257) QC acceptable [facility] [id number] 20:46:00 Test Item Value Reference Range Interpretation Comments test urine, POC (test Negative code = 9723772) Internal QC (test code = 257) [facility] [id number] 20:46:00 Test Item Value Reference Range Interpretation Comments test urine, POC (test Negative code = 0088816) Internal QC (test code = 257) QC [facility] [id number] 20:46:00 Test Item Value Reference Range Interpretation Comments test urine, POC (test Negative code = 3869882) Internal QC (test code = 257) QC [facility] [id number] 20:46:00 Test Item Value Reference Range Interpretation Comments test urine, POC (test Negative code = 2450529) Internal QC (test code = 257) QC acceptable [facility] [id number] 20:46:00 Test Item Value Reference Range Interpretation Comments test urine, POC (test Negative code = 5332676) Internal QC (test code = 257) QC acceptable [facility] , iewyt5170-49-08 20:46:00 Test Item Value Reference Range Interpretation Comments test urine, POC (test Negative code = 7241120) Internal QC (test code = 257) QC [facility] grcmk2766-14-63 20:46:00 Test Item Value Reference Range Interpretation Comments test urine, POC (test Negative code = 7267292) Internal QC (test code = 257) QC acceptable [facility] , [id number] 20:46:00 Test Item Value Reference Range Interpretation Comments test urine, POC (test Negative code = 0545614) Internal QC (test code = 257) QC acceptable [address]2021-12-27 17:27:33 Test Item Value Reference Range Interpretation Comments Ventricular rate (test code = 253) Atrial rate (test code = 255) MS interval (test code = 266) QRSD interval [...] of 04-JUN-2021 18:19,-No significant change was found- [address]2021-12-27 17:27:33 Test Item Value Reference Range Interpretation Comments Ventricular rate (test code = 253) Atrial rate (test code = 255) MS interval (test code = 266) QRSD interval [...] of 04-JUN-2021 18:19,-No significant change was found- [address]2021-12-27 17:27:33 Test Item Value Reference Range Interpretation Comments Ventricular rate (test code = 253) Atrial rate (test code = 255) MS interval (test code = 266) QRSD interval [...] of 04-JUN-2021 18:19,-No significant change was found- [address]2021-12-27 17:27:33 Test Item Value Reference Range Interpretation Comments Ventricular rate (test code = 253) Atrial rate (test code = 255) MS interval (test code = 266) QRSD interval [...] of 04-JUN-2021 18:19,-No significant change was found- [address]2021-12-27 17:27:33 Test Item Value Reference Range Interpretation Comments Ventricular rate (test code = 253) Atrial rate (test code = 255) MS interval (test code = 266) QRSD interval [...] of 04-JUN-2021 18:19,-No significant change was found- [address]2021-12-27 17:27:33 Test Item Value Reference Range Interpretation Comments Ventricular rate (test code = 253) Atrial rate (test code = 255) MS interval (test code = 266) QRSD interval [...] of 04-JUN-2021 18:19,-No significant change was found- [address]2021-12-27 17:27:33 Test Item Value Reference Range Interpretation Comments Ventricular rate (test code = 253) Atrial rate (test code = 255) MS interval (test code = 266) QRSD interval [...] of 04-JUN-2021 18:19,-No significant change was found- [address]2021-12-27 17:27:33 Test Item Value Reference Range Interpretation Comments Ventricular rate (test code = 253) Atrial rate (test code = 255) MS interval (test code = 266) QRSD interval [...] of 04-JUN-2021 18:19,-No significant change was found- [address]2021-12-27 17:27:33 Test Item Value Reference Range Interpretation Comments Ventricular rate (test code = 253) Atrial rate (test code = 255) MS interval (test code = 266) QRSD interval [...] of 04-JUN-2021 18:19,-No significant change was found- [address]2021-12-27 17:27:33 Test Item Value Reference Range Interpretation Comments Ventricular rate (test code = 253) Atrial rate (test code = 255) MS interval (test code = 266) QRSD interval [...] of 04-JUN-2021 18:19,-No significant change was found- [address]2021-12-27 17:27:33 Test Item Value Reference Range Interpretation Comments Ventricular rate (test code = 253) Atrial rate (test code = 255) MS interval (test code = 266) QRSD interval [...] of 04-JUN-2021 18:19,-No significant change was found- [address]2021-12-27 17:27:33 Test Item Value Reference Range Interpretation Comments Ventricular rate (test code = 253) Atrial rate (test code = 255) MS interval (test code = 266) QRSD interval [...] 04-JUN-2021 18:19,-No significant change was found- [facility] 12 [id number] 17:27:33 Test Item Value Reference Range Interpretation Comments Ventricular rate (test code = 253) Atrial rate (test code = 255) MS interval (test code = 266) QRSD interval [...] of 04-JUN-2021 18:19,-No significant change was found- [facility]2021-12-27 11:06:00 Test Item Value Reference Range Interpretation Comments ABO grouping (test code = 883-9) B Rh type (test code = 26031-7) POS Antibody screen (gel) (test code = NEG 890-4) [facility] and zneaws9491-80-05 11:06:00 Test Item Value Reference Range Interpretation Comments ABO grouping (test code = 883-9) B Rh type (test code = 30781-7) POS Antibody screen (gel) (test code = NEG 890-4) [facility] and [id number] 11:06:00 Test Item Value Reference Range Interpretation Comments ABO grouping (test code = 883-9) B Rh type (test code = 77455-9) POS Antibody screen (gel) (test code = NEG 890-4) [facility] and [id number] 11:06:00 Test Item Value Reference Range Interpretation Comments ABO grouping (test code = 883-9) B Rh type (test code = 09164-8) POS Antibody screen (gel) (test code = NEG 890-4) [facility] and lqtnmz7052-39-91 11:06:00 Test Item Value Reference Range Interpretation Comments ABO grouping (test code = 883-9) B Rh type (test code = 72759-7) POS Antibody screen (gel) (test code = NEG 890-4) [facility] and vexavz9363-05-22 11:06:00 Test Item Value Reference Range Interpretation Comments ABO grouping (test code = 883-9) B Rh type (test code = 49910-2) POS Antibody screen (gel) (test code = NEG 890-4) [facility] and tpjzih6485-25-05 11:06:00 Test Item Value Reference Range Interpretation Comments ABO grouping (test code = 883-9) B Rh type (test code = 33797-5) POS Antibody screen (gel) (test code = NEG 890-4) [facility] and akrqqh9997-26-76 11:06:00 Test Item Value Reference Range Interpretation Comments ABO grouping (test code = 883-9) B Rh type (test code = 65422-9) POS Antibody screen (gel) (test code = NEG 890-4) [facility] and ewdswq8720-68-33 11:06:00 Test Item Value Reference Range Interpretation Comments ABO grouping (test code = 883-9) B Rh type (test code = 72357-5) POS Antibody screen (gel) (test code = NEG 890-4) [facility] and wjrhmv7330-74-97 11:06:00 Test Item Value Reference Range Interpretation Comments ABO grouping (test code = 883-9) B Rh type (test code = 52082-0) POS Antibody screen (gel) (test code = NEG 890-4) [facility] and baklov6625-20-28 11:06:00 Test Item Value Reference Range Interpretation Comments ABO grouping (test code = 883-9) B Rh type (test code = 18516-5) POS Antibody screen (gel) (test code = NEG 890-4) [facility] and tyoote5828-32-33 11:06:00 Test Item Value Reference Range Interpretation Comments ABO grouping (test code = 883-9) B Rh type (test code = 82975-3) POS Antibody screen (gel) (test code = NEG 890-4) [facility] [id number] 11:06:00 Test Item Value Reference Range Interpretation Comments ABO grouping (test code = 883-9) B Rh type (test code = 09725-3) POS Antibody screen (gel) (test code = NEG 890-4) [facility] [Presence] in Respiratory specimen by EMANUEL with probe raccifnds5951-59-49 19:37:44 Test Item Value Reference Range Interpretation Comments SARS-CoV-2 (COVID-19) RNA Not detected Not-Detected [Presence] in Respiratory specimen by EMANUEL with probe detection (test code = 44326-5) 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 InformationSp ecimen code = 35390-9) Source: [facility] Site: Thigh: in fected right thigh wou nd [facility] omjqlzu1032-67-36 20:18:46 Test Item Value Reference Range Interpretation Comments Tissue culture No growth Specimen isolate (test after 3 days. InformationSp ecimen code = 70445-6) Source: [facility] Site: Thigh: in fected right thigh wou nd [facility] ygcgjvr8592-77-19 20:18:46 Test Item Value Reference Range Interpretation Comments Tissue culture No growth Specimen isolate (test after 3 days. InformationSp ecimen code = 93266-6) Source: [facility] Site: Thigh: in fected right thigh wou nd [facility] jmopwlk0932-42-80 20:18:46 Test Item Value Reference Range Interpretation Comments Tissue culture No growth Specimen isolate (test after 3 days. InformationSp ecimen code = 57111-4) Source: T[place] ueSpecimen Site: Thigh: in fected right thigh wou [facility]2021-12-24 20:18:46 Test Item Value Reference Range Interpretation Comments Tissue culture No growth Specimen isolate (test after 3 days. InformationSp ecimen code = 36304-0) Source: [place] ueSpecimen Site: Thigh: in fected right thigh wou [facility]2021-12-24 20:18:46 Test Item Value Reference Range Interpretation Comments Tissue culture No growth Specimen isolate (test after 3 days. InformationSp ecimen code = 93473-8) Source: [place] ueSpecimen Site: Thigh: in fected right thigh wou [facility]2021-12-24 20:18:46 Test Item Value Reference Range Interpretation Comments Tissue culture No growth Specimen isolate (test after 3 days. InformationSp ecimen code = 43698-2) Source: [place] ueSpecimen Site: Thigh: in fected right thigh wou [facility]2021-12-24 20:18:46 Test Item Value Reference Range Interpretation Comments Tissue culture No growth Specimen isolate (test after 3 days. InformationSp ecimen code = 80237-4) Source: [place] ueSpecimen Site: Thigh: in fected right thigh wou [facility]2021-12-24 20:18:46 Test Item Value Reference Range Interpretation Comments Tissue culture No growth Specimen isolate (test after 3 days. InformationSp ecimen code = 55013-1) Source: [place]iss ueSpecimen Site: Thigh: in fected right thigh wou [facility] fgazhtk7199-36-51 20:18:46 Test Item Value Reference Range Interpretation Comments Tissue culture No growth Specimen isolate (test after 3 days. InformationSp ecimen code = 97344-8) Source: [place] ueSpecimen Site: Thigh: in fected right thigh wou [facility] [id number] 20:18:46 Test Item Value Reference Range Interpretation Comments Tissue culture No growth Specimen isolate (test after 3 days. InformationSp ecimen code = 22122-0) Source: Tiss ueSpecimen Site: Thigh: [facility] [id number] 20:24:42 Test Item Value Reference Range Interpretation Comments AFB stain No acid fast Specimen (test code = bacilli (AFB) InformationSpe cimen 676-7) seen. Source: [place] eSpecimen Site: Thigh: [facility] [id number] 20:24:42 Test Item Value Reference Range Interpretation Comments AFB stain No acid fast Specimen (test code = bacilli (AFB) InformationSpe cimen 676-7) seen. Source: [place] eSpecimen Site: Thigh: in fected wound [facility] dzpmf3222-73-31 20:24:42 Test Item Value Reference Range Interpretation Comments AFB stain No acid fast Specimen (test code = bacilli (AFB) InformationSpe cimen 676-7) seen. Source: [place] eSpecimen Site: Thigh: in fected wound [facility] [id number] 20:24:42 Test Item Value Reference Range Interpretation Comments AFB stain No acid fast Specimen (test code = bacilli (AFB) InformationSpe cimen 676-7) seen. Source: [place] eSpecimen Site: Thigh: in fected wound [facility] [id number] 20:24:42 Test Item Value Reference Range Interpretation Comments AFB stain No acid fast Specimen (test code = bacilli (AFB) InformationSpe cimen 676-7) seen. Source: [place] eSpecimen Site: Thigh: in fected wound [facility] [id number] 20:24:42 Test Item Value Reference Range Interpretation Comments AFB stain No acid fast Specimen (test code = bacilli (AFB) InformationSpe cimen 676-7) seen. Source: [place] eSpecimen Site: Thigh: in fected wound [facility] [id number] 20:24:42 Test Item Value Reference Range Interpretation Comments AFB stain No acid fast Specimen (test code = bacilli (AFB) InformationSpe cimen 676-7) seen. Source: [place] eSpecimen Site: Thigh: [facility] [id number] 20:24:42 Test Item Value Reference Range Interpretation Comments AFB stain No acid fast Specimen (test code = bacilli (AFB) InformationSpe cimen 676-7) seen. Source: [place] eSpecimen Site: Thigh: [facility] [id number] 20:24:42 Test Item Value Reference Range Interpretation Comments AFB stain No acid fast Specimen (test code = bacilli (AFB) InformationSpe cimen 676-7) seen. Source: [place] eSpecimen Site: Thigh: [facility] [id number] 20:24:42 Test Item Value Reference Range Interpretation Comments AFB stain No acid fast Specimen (test code = bacilli (AFB) InformationSpe cimen 676-7) seen. Source: [place] eSpecimen Site: Thigh: [facility]ect[facility] [id number] 20:24:42 Test Item Value Reference Range Interpretation Comments AFB stain No acid fast Specimen (test code = bacilli (AFB) InformationSpe cimen 676-7) seen. Source: [place] eSpecimen Site: Thigh: in fected wound right [facility] yrkljhr4082-98-71 09:49:57 Test Item Value Reference Range Interpretation Comments Urine culture No growth Specimen isolate (test after 24 InformationSpe cimen code = 41267-9) hours Source: Urin eSpecimen Site: Clean [facility] mkhrfba3615-22-07 09:49:57 Test Item Value Reference Range Interpretation Comments Urine culture No growth Specimen isolate (test after 24 InformationSpe cimen code = 84046-4) hours Source: Urin eSpecimen Site: [facility]2021-12-20 09:49:57 Test Item Value Reference Range Interpretation Comments Urine culture No growth Specimen isolate (test after 24 InformationSpe cimen code = 06710-9) hours Source: Urin eSpecimen Site: [facility] vfafstv9466-79-10 09:49:57 Test Item Value Reference Range Interpretation Comments Urine culture No growth Specimen isolate (test after 24 InformationSpe cimen code = 27708-1) hours Source: [facility] Site: [facility]2021-12-20 09:49:57 Test Item Value Reference Range Interpretation Comments Urine culture No growth Specimen isolate (test after 24 InformationSpe cimen code = 17813-8) hours Source: [facility] Site: [facility]2021-12-20 09:49:57 Test Item Value Reference Range Interpretation Comments Urine culture No growth Specimen isolate (test after 24 InformationSpe cimen code = 91184-6) hours Source: [facility] Site: [facility] okgijwm0079-80-59 09:49:57 Test Item Value Reference Range Interpretation Comments Urine culture No growth Specimen isolate (test after 24 InformationSpe cimen code = 61485-3) hours Source: [facility] Site: [facility]2021-12-20 09:49:57 Test Item Value Reference Range Interpretation Comments Urine culture No growth Specimen isolate (test after 24 InformationSpe cimen code = 94598-8) hours Source: [facility] Site: [facility] fnacgoa8701-40-61 09:49:57 Test Item Value Reference Range Interpretation Comments Urine culture No growth Specimen isolate (test after 24 InformationSpe cimen code = 36879-8) hours Source: [facility] Site: [facility]2021-12-20 09:49:57 Test Item Value Reference Range Interpretation Comments Urine culture No growth Specimen isolate (test after 24 InformationSpe cimen code = 67470-9) hours Source: [facility] Site: [facility] [id number] 09:49:57 Test Item Value Reference Range Interpretation Comments Urine culture No growth Specimen isolate (test after 24 InformationSpe cimen code = 53888-0) hours Source: [facility] Site: [facility] and melrjplhiobp5597-94-44 12:52:00 Test Item Value Reference Range Interpretation Comments ABO grouping (test code = 883-9) B Rh type (test code = 86310-9) POS [facility] and ljmagwhdrmgt7403-44-79 12:52:00 Test Item Value Reference Range Interpretation Comments ABO grouping (test code = 883-9) B Rh type (test code = 98936-8) [facility] jenstabcafva0720-45-13 12:52:00 Test Item Value Reference Range Interpretation Comments ABO grouping (test code = 883-9) B Rh type (test code = 93545-0) [facility] aujosxgkcobt3749-63-26 12:52:00 Test Item Value Reference Range Interpretation Comments ABO grouping (test code = 883-9) B Rh type (test code = 05141-4) [facility] rpebnmeipwlt9787-89-47 12:52:00 Test Item Value Reference Range Interpretation Comments ABO grouping (test code = 883-9) B Rh type (test code = 96247-5) [facility] heourmvyyrfa7427-94-48 12:52:00 Test Item Value Reference Range Interpretation Comments ABO grouping (test code = 883-9) B Rh type (test code = 87738-8) [facility] zlgemchydafa6306-92-27 12:52:00 Test Item Value Reference Range Interpretation Comments ABO grouping (test code = 883-9) B Rh type (test code = 07671-1) [facility] harddceeckhp0604-83-44 12:52:00 Test Item Value Reference Range Interpretation Comments ABO grouping (test code = 883-9) B Rh type (test code = 11604-9) [facility] dzwazqskqjru0353-88-06 12:52:00 Test Item Value Reference Range Interpretation Comments ABO grouping (test code = 883-9) B Rh type (test code = 03829-5) [facility] nxljwihfhoyo4062-04-59 12:52:00 Test Item Value Reference Range Interpretation Comments ABO grouping (test code = 883-9) B Rh type (test code = 31851-2) [facility] wdcbczytuiyk2437-84-79 12:52:00 Test Item Value Reference Range Interpretation Comments ABO grouping (test code = 883-9) B Rh type (test code = 65890-3) [facility] RNA [Presence] in Respiratory specimen by EMANUEL with probe [id number] 03:04:32 Test Item Value Reference Range Interpretation Comments SARS-CoV-2 (COVID-19) RNA Not detected Not-Detected [Presence] in Respiratory specimen by EMANUEL with probe detection (test code = 11451-3) 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 (test code = 64441-1) Whether the patient has symptoms related to condition of interest (test code = 10838-6) Patient was hospitalized because of this condition (test code = 27449-2) Whether the patient was admitted to intensive care unit (ICU) for condition of interest (test code = 43719-0) Whether patient resides in a congregate care setting (test code = 11174-4) [facility], 1 [id number] 22:22:00 Test Item Value Reference Range Interpretation Comments Product name (test code Red Blood Cells -1, = 25) Leukored Unit number (test code = [id number]) Product code (test code H7662U39 = 3092) Dispense status (test Transfused code = 24) Blood expiration date (test code = 302) Blood type code (test code = 308) Blood type (test code = B POSITIVE 1314) Compatibility (test code Compatible = 6400) [facility] [id number] 22:22:00 Test Item Value Reference Range Interpretation Comments Product name (test code Red Blood Cells -1, = 25) Leukored Unit number (test code = [id number]) Product code (test code G0618G69 = 3092) Dispense status (test Transfused code = 24) Blood expiration date (test code = 302) Blood type code (test code = 308) Blood type (test code = B POSITIVE 1314) Compatibility (test code Compatible = 6400) [facility] [id number] 22:22:00 Test Item Value Reference Range Interpretation Comments Product name (test code Red Blood Cells -1, = 25) Leukored Unit number (test code = [id number] [id number]) Product code (test code X3400Y54 = 3092) Dispense status (test Transfused code = 24) Blood expiration date (test code = 302) Blood type code (test code = 308) Blood type (test code = B POSITIVE 1314) Compatibility (test code Compatible = 6400) [facility] [id number] 22:22:00 Test Item Value Reference Range Interpretation Comments Product name (test code Red Blood Cells -1, = 25) Leukored Unit number (test code = [id number] [id number]) Product code (test code J0725B41 = 3092) Dispense status (test Transfused code = 24) Blood expiration date (test code = 302) Blood type code (test code = 308) Blood type (test code = B POSITIVE 1314) Compatibility (test code Compatible = 6400) [facility] [id number] 22:22:00 Test Item Value Reference Range Interpretation Comments Product name (test code Red Blood Cells -1, = 25) Leukored Unit number (test code = [id number] 3003450) Product code (test code K3036T43 = 3092) Dispense status (test Transfused code = 24) Blood expiration date (test code = 302) Blood type code (test code = 308) Blood type (test code = B POSITIVE 1314) Compatibility (test code Compatible = 6400) [facility] Wayll0035-68-32 22:22:00 Test Item Value Reference Range Interpretation Comments Product name (test code Red Blood Cells -1, = 25) Leukored Unit number (test code = [id number] 7237081) Product code (test code P6761B77 = 3092) Dispense status (test Transfused code = 24) Blood expiration date (test code = 302) Blood type code (test code = 308) Blood type (test code = B POSITIVE 1314) Compatibility (test code Compatible = 6400) [facility], [facility] [id number] 22:22:00 Test Item Value Reference Range Interpretation Comments Product name (test code Red Blood Cells -1, = 25) Leukored Unit number (test code = [id number] 8376811) Product code (test code S4860Z31 = 3092) Dispense status (test Transfused code = 24) Blood expiration date (test code = 302) Blood type code (test code = 308) Blood type (test code = B POSITIVE 1314) Compatibility (test code Compatible = 6400) [facility], 1 [id number] 22:22:00 Test Item Value Reference Range Interpretation Comments Product name (test code Red Blood Cells -1, = 25) Leukored Unit number (test code = [id number] 9482424) Product code (test code C4637L47 = 3092) Dispense status (test Transfused code = 24) Blood expiration date (test code = 302) Blood type code (test code = 308) Blood type (test code = B POSITIVE 1314) Compatibility (test code Compatible = 6400) [facility], 1 [id number] 22:22:00 Test Item Value Reference Range Interpretation Comments Product name (test code Red Blood Cells -1, = 25) Leukored Unit number (test code = [id number] 8056339) Product code (test code L8210O65 = 3092) Dispense status (test Transfused code = 24) Blood expiration date (test code = 302) Blood type code (test code = 308) Blood type (test code = B POSITIVE 1314) Compatibility (test code Compatible = 6400) [facility] [id number] 22:22:00 Test Item Value Reference Range Interpretation Comments Product name (test code Red Blood Cells -1, = 25) Leukored Unit number (test code = [id number] 2107910) Product code (test code X2475N15 = 3092) Dispense status (test Transfused code = 24) Blood expiration date (test code = 302) Blood type code (test code = 308) Blood type (test code = B POSITIVE 1314) Compatibility (test code Compatible = 6400) [facility] [id number] 20:10:46 Test Item Value Reference Range Interpretation Comments Case number (test code = [id number]) Surgical pathology See link below for report (test code = PDF Lab Report 2253) Result status (test code This is Final Report = [id number]) for [id number] [facility] [id number] 20:10:46 Test Item Value Reference Range Interpretation Comments Case number (test code = [id number]) Surgical pathology See link below for report (test code = PDF Lab Report 2255) Result status (test code This is Final Report = [id number]) for [address] pathology [id number] 20:10:46 Test Item Value Reference Range Interpretation Comments Case number (test code = [id number]) Surgical pathology See link below for report (test code = PDF Lab Report 2255) Result status (test code This is Final Report = [id number]) for [address] pathology [id number] 20:10:46 Test Item Value Reference Range Interpretation Comments Case number (test code = [id number]) Surgical pathology See link below for report (test code = PDF Lab Report 2255) Result status (test code This is Final Report = [id number]) for [address] pathology [id number] 20:10:46 Test Item Value Reference Range Interpretation Comments Case number (test code = [id number]) Surgical pathology See link below for report (test code = PDF Lab Report 2255) Result status (test code This is Final Report = 7748027) for [address] pathology [id number] 20:10:46 Test Item Value Reference Range Interpretation Comments Case number (test code = [id number]) Surgical pathology See link below for report (test code = PDF Lab Report 2255) Result status (test code This is Final Report = [id number]) for [address] pathology wedryzp3392-60-62 20:10:46 Test Item Value Reference Range Interpretation Comments Case number (test code = [id number]) Surgical pathology See link below for report (test code = PDF Lab Report 2255) Result status (test code This is Final Report = 2606498) for [address] pathology [id number] 20:10:46 Test Item Value Reference Range Interpretation Comments Case number (test code = [id number]) Surgical pathology See link below for report (test code = PDF Lab Report 2255) Result status (test code This is Final Report = 3574777) for [id number] [facility] [id number] 20:10:46 Test Item Value Reference Range Interpretation Comments Case number (test code = [id number]) Surgical pathology See link below for report (test code = PDF Lab Report 2255) Result status (test code This is Final Report = [id number]) for [id number] [facility] [id number] 20:10:46 Test Item Value Reference Range Interpretation Comments Case number (test code = [id number]) Surgical pathology See link below for report (test code = PDF Lab Report 2255) Result status (test code This is Final Report = 7982378) for [id number] [facility]heres[facility], 1 [id number] 15:35:00 Test Item Value Reference Range Interpretation Comments Product name (test code Platele tAph LR, Path = 25) Red cont3 Unit number (test code = [id number] 0672511) Product code (test code V1530P13 = 3092) Dispense status (test Transfused code = 24) Blood expiration date (test code = 302) Blood type code (test code = 308) Blood type (test code = O POSITIVE 1314) Compatibility (test code Not required = 6400) [facility], 1 [id number] 15:35:00 Test Item Value Reference Range Interpretation Comments Product name (test code Platele tAph LR, Path = 25) Red cont3 Unit number (test code = [id number] 0441353) Product code (test code K0651K64 = 3092) Dispense status (test Transfused code = 24) Blood expiration date (test code = 302) Blood type code (test code = 308) Blood type (test code = O POSITIVE 1314) Compatibility (test code Not required = 6400) [facility], 1 [id number] 15:35:00 Test Item Value Reference Range Interpretation Comments Product name (test code Platele tAph LR, Path = 25) Red cont3 Unit number (test code = [id number] 1055570) Product code (test code N2815K35 = 3092) Dispense status (test Transfused code = 24) Blood expiration date (test code = 302) Blood type code (test code = 308) Blood type (test code = O POSITIVE 1314) Compatibility (test code Not required = 6400) [facility], 1 [id number] 15:35:00 Test Item Value Reference Range Interpretation Comments Product name (test code Platele tAph LR, Path = 25) Red cont3 Unit number (test code = [id number] 2484700) Product code (test code N7554I42 = 3092) Dispense status (test Transfused code = 24) Blood expiration date (test code = 302) Blood type code (test code = 308) Blood type (test code = O POSITIVE 1314) Compatibility (test code Not required = 6400) [facility], 1 Ojiqy3848-67-07 15:35:00 Test Item Value Reference Range Interpretation Comments Product name (test code Platele tAp LR, Path = 25) Red cont3 Unit number (test code = [id number] 0666984) Product code (test code R2831A62 = 3092) Dispense status (test Transfused code = 24) Blood expiration date (test code = 302) Blood type code (test code = 308) Blood type (test code = O POSITIVE 1314) Compatibility (test code Not required = 6400) [facility], 1 [id number] 15:35:00 Test Item Value Reference Range Interpretation Comments Product name (test code Platele tAp LR, Path = 25) Red cont3 Unit number (test code = [id number] 8698975) Product code (test code H3283T81 = 3092) Dispense status (test Transfused code = 24) Blood expiration date (test code = 302) Blood type code (test code = 308) Blood type (test code = O POSITIVE 1314) Compatibility (test code Not required = 6400) [facility], 1 [id number] 15:35:00 Test Item Value Reference Range Interpretation Comments Product name (test code Platele tAph LR, Path = 25) Red cont3 Unit number (test code = [id number] 0484289) Product code (test code T2024S64 = 3092) Dispense status (test Transfused code = 24) Blood expiration date (test code = 302) Blood type code (test code = 308) Blood type (test code = O POSITIVE 1314) Compatibility (test code Not required = 6400) [facility], 1 [id number] 15:35:00 Test Item Value Reference Range Interpretation Comments Product name (test code Bogdan GARDINER, Path = 25) Red cont3 Unit number (test code = [id number] 0857389) Product code (test code V4728U74 = 3092) Dispense status (test Transfused code = 24) Blood expiration date (test code = 302) Blood type code (test code = 308) Blood type (test code = O POSITIVE 1314) Compatibility (test code Not required = 6400) [facility], 1 [id number] 15:35:00 Test Item Value Reference Range Interpretation Comments Product name (test code Bogdan GARDINER, Path = 25) Red cont3 Unit number (test code = [id number] 2566039) Product code (test code L9477I07 = 3092) Dispense status (test Transfused code = 24) Blood expiration date (test code = 302) Blood type code (test code = 308) Blood type (test code = O POSITIVE 1314) Compatibility (test code Not required = 6400) [facility], 1 [id number] 15:35:00 Test Item Value Reference Range Interpretation Comments Product name (test code Bogdan GARDINER, Path = 25) Red cont3 Unit number (test code = [id number] 1940557) Product code (test code D4952G28 = 3092) Dispense status (test Transfused code = 24) Blood expiration date (test code = 302) Blood type code (test code = 308) Blood type (test code = O POSITIVE 1314) Compatibility (test code Not required = 6400) [facility] [id number] 12:13:24 Test Item Value Reference Range Interpretation Comments Activated clotting time See_Comment H Oper ator Name: (test code = 5298) Bryn Morales ID: [id number] [Automated mess age] The system [employer] generated this result transmitted ref erence range: 96 - 152 sec. The reference r leo was not used to interpret this result as normal/abnor mal. Lab Interpretation (test Abnormal code = 72501-9) [facility] [id number] 12:13:24 Test Item Value Reference Range Interpretation Comments Activated clotting time See_Comment H Oper ator Name: (test code = 5298) Bryn Sj Diase ID: [id number] [Automated mess age] The system [employer] generated this result transmitted ref erence range: 96 - 152 sec. The reference r leo was not used to interpret this result as normal/abnor mal. Lab Interpretation (test Abnormal code = 72952-0) [facility] [id number] 12:13:24 Test Item Value Reference Range Interpretation Comments Activated clotting time See_Comment H Oper ator Name: (test code = 5298) Penelopetico sepulvedaDevice ID: [id number] [Automated mess age] The system [employer] generated this result transmitted ref erence range: 96 - 152 sec. The reference r leo was not used to interpret this result as normal/abnor mal. Lab Interpretation (test Abnormal code = 62567-3) [facility] [id number] 12:13:24 Test Item Value Reference Range Interpretation Comments Activated clotting time See_Comment H Oper ator Name: (test code = 5298) Bryn Sj Shorevice ID: [id number] [Automated mess age] The system [employer] generated this result transmitted ref erence range: 96 - 152 sec. The reference r leo was not used to interpret this result as normal/abnor mal. Lab Interpretation (test Abnormal code = 86047-9) [facility] hadf0427-10-41 12:13:24 Test Item Value Reference Range Interpretation Comments Activated clotting time See_Comment H Oper ator Name: (test code = 5298) Bryn Sj thorntoneaDevice ID: [id number] [Automated mess age] The system [employer] generated this result transmitted ref erence range: 96 - 152 sec. The reference r leo was not used to interpret this result as normal/abnor mal. Lab Interpretation (test Abnormal code = 71743-1) [facility] [id number] 12:13:24 Test Item Value Reference Range Interpretation Comments Activated clotting time See_Comment H Oper ator Name: (test code = 5298) Bryn Denny Silvianovice ID: [id number] [Automated mess age] The system [employer] h generated this result transmitted ref erence range: 96 - 152 sec. The reference r leo was not used to interpret this result as normal/abnor mal. Lab Interpretation (test Abnormal code = 88546-4) [facility] [id number] 12:13:24 Test Item Value Reference Range Interpretation Comments Activated clotting time See_Comment H Oper ator Name: (test code = 5298) Bryn Denny norbertoeaDevice ID: [id number] [Automated mess age] The system [employer] generated this result transmitted ref erence range: 96 - 152 sec. The reference r leo was not used to interpret this result as normal/abnor mal. Lab Interpretation (test Abnormal code = 64941-2) [facility] qxac5723-27-13 12:13:24 Test Item Value Reference Range Interpretation Comments Activated clotting time See_Comment H Oper ator Name: (test code = 5298) Bryn Sj thorntoneaDevice ID: [id number] [Automated mess age] The system [employer] generated this result transmitted ref erence range: 96 - 152 sec. The reference r leo was not used to interpret this result as normal/abnor mal. Lab Interpretation (test Abnormal code = 05205-9) [facility] [id number] 12:13:24 Test Item Value Reference Range Interpretation Comments Activated clotting time See_Comment H Oper ator Name: (test code = 5298) Bryn Denny eneaDevice ID: [id number] [Automated mess age] The system [employer] generated this result transmitted ref erence range: 96 - 152 sec. The reference r leo was not used to interpret this result as normal/abnor mal. Lab Interpretation (test Abnormal code = 09278-0) [facility] czuh8553-56-17 12:13:24 Test Item Value Reference Range Interpretation Comments Activated clotting time See_Comment H Oper ator Name: (test code = 5298) Bryn Denny Carmen ID: [id number] [Automated mess age] The system [employer] generated this result transmitted ref erence range: 96 - 152 sec. The reference r leo was not used to interpret this result as normal/abnor mal. Lab Interpretation (test Abnormal code = 31966-9) [facility]2021-11-29 14:37:48 Test Item Value Reference Range Interpretation Comments POC sodium (test code = 138 mmol/L 446-406 6237-0) POC potassium (test 5.5 mmol/L 3.5-5 H code = 6298-4) POC glucose (test code 295 mg/dL 65-99 H = 2339-0) POC creatinine (test 5.3 mg/dl 0.5-0.9 H Operato r Name: Pugne code = 68522-8) AileenDevice ID: [id number] POC hemoglobin (test 18.4 g/dL 12-16 H code = 718-7) POC hematocrit (test 54 % 37-47 H code = 4544-3) Lab Interpretation Abnormal (test code = 18805-5) [facility]2021-11-29 14:37:48 Test Item Value Reference Range Interpretation Comments POC sodium (test code = 138 mmol/L 026-914 1570-0) POC potassium (test 5.5 mmol/L 3.5-5 H code = 6298-4) POC glucose (test code 295 mg/dL 65-99 H = 2339-0) POC creatinine (test 5.3 mg/dl 0.5-0.9 H Operato r Name: Pugne code = 34950-6) AileenDevice ID: [id number] POC hemoglobin (test 18.4 g/dL 12-16 H code = 718-7) POC hematocrit (test 54 % 37-47 H code = 4544-3) Lab Interpretation Abnormal (test code = 06489-7) [facility]2021-11-29 14:37:48 Test Item Value Reference Range Interpretation Comments POC sodium (test code = 138 mmol/L 824-556 7884-0) POC potassium (test 5.5 mmol/L 3.5-5 H code = 6298-4) POC glucose (test code 295 mg/dL 65-99 H = 2339-0) POC creatinine (test 5.3 mg/dl 0.5-0.9 H Operato r Name: Johannae code = 59102-3) AileenDevice ID: [id number] POC hemoglobin (test 18.4 g/dL 12-16 H code = 718-7) POC hematocrit (test 54 % 37-47 H code = 4544-3) Lab Interpretation Abnormal (test code = 83690-6) [facility]2021-11-29 14:37:48 Test Item Value Reference Range Interpretation Comments POC sodium (test code = 138 mmol/L 912-406 3640-0) POC potassium (test 5.5 mmol/L 3.5-5 H code = 6298-4) POC glucose (test code 295 mg/dL 65-99 H = 2339-0) POC creatinine (test 5.3 mg/dl 0.5-0.9 H Operato r Name: Johannae code = 53437-2) AileenDevice ID: [id number] POC hemoglobin (test 18.4 g/dL 12-16 H code = 718-7) POC hematocrit (test 54 % 37-47 H code = 4544-3) Lab Interpretation Abnormal (test code = 05565-6) [facility]2021-11-29 14:37:48 Test Item Value Reference Range Interpretation Comments POC sodium (test code = 138 mmol/L 519-009 5645-0) POC potassium (test 5.5 mmol/L 3.5-5 H code = 6298-4) POC glucose (test code 295 mg/dL 65-99 H = 2339-0) POC creatinine (test 5.3 mg/dl 0.5-0.9 H Operato r Name: Carminagne code = 00379-2) AileenDevice ID: [id number] POC hemoglobin (test 18.4 g/dL 12-16 H code = 718-7) POC hematocrit (test 54 % 37-47 H code = 4544-3) Lab Interpretation Abnormal (test code = 32175-2) [facility]2021-11-29 14:37:48 Test Item Value Reference Range Interpretation Comments POC sodium (test code = 138 mmol/L 894-320 5817-0) POC potassium (test 5.5 mmol/L 3.5-5.0 H code = 6298-4) POC glucose (test code 295 mg/dL 65-99 H = 2339-0) POC creatinine (test 5.3 mg/dl 0.5-0.9 H Operato r Name: Carminagne code = 23404-9) AileenDevice ID: [id number] POC hemoglobin (test 18.4 g/dL 12.0-16.0 H code = 718-7) POC hematocrit (test 54 % 37-47 H code = 4544-3) Lab Interpretation Abnormal (test code = 09813-9) [facility]2021-11-29 14:37:48 Test Item Value Reference Range Interpretation Comments POC sodium (test code = 138 mmol/L 024-909 1998-0) POC potassium (test 5.5 mmol/L 3.5-5.0 H code = 6298-4) POC glucose (test code 295 mg/dL 65-99 H = 2339-0) POC creatinine (test 5.3 mg/dl 0.5-0.9 H Operato r Name: Carminae code = 48125-4) AileenDevice ID: [id number] POC hemoglobin (test 18.4 g/dL 12.0-16.0 H code = 718-7) POC hematocrit (test 54 % 37-47 H code = 4544-3) Lab Interpretation Abnormal (test code = 36420-0) [facility]2021-11-29 14:37:48 Test Item Value Reference Range Interpretation Comments POC sodium (test code = 138 mmol/L 365-308 1250-0) POC potassium (test 5.5 mmol/L 3.5-5 H code = 6298-4) POC glucose (test code 295 mg/dL 65-99 H = 2339-0) POC creatinine (test 5.3 mg/dl 0.5-0.9 H Operato r Name: Pugne code = 18869-0) AileenDevice ID: [id number] POC hemoglobin (test 18.4 g/dL 12-16 H code = 718-7) POC hematocrit (test 54 % 37-47 H code = 4544-3) Lab Interpretation Abnormal (test code = 27198-5) [facility] rveub5981-17-93 14:37:48 Test Item Value Reference Range Interpretation Comments POC sodium (test code = 138 mmol/L 610-011 9381-0) POC potassium (test 5.5 mmol/L 3.5-5 H code = 6298-4) POC glucose (test code 295 mg/dL 65-99 H = 2339-0) POC creatinine (test 5.3 mg/dl 0.5-0.9 H Operato r Name: Pat code = 77437-8) AileenDevice ID: [id number] POC hemoglobin (test 18.4 g/dL 12-16 H code = 718-7) POC hematocrit (test 54 % 37-47 H code = 4544-3) Lab Interpretation Abnormal (test code = 37439-6) [facility] eidgs1159-18-12 14:37:48 Test Item Value Reference Range Interpretation Comments POC sodium (test code = 138 mmol/L 987-517 5287-0) POC potassium (test 5.5 mmol/L 3.5-5 H code = 6298-4) POC glucose (test code 295 mg/dL 65-99 H = 2339-0) POC creatinine (test 5.3 mg/dl 0.5-0.9 H Operato r Name: Pat code = 07059-5) AileenDevice ID: [id number] POC hemoglobin (test 18.4 g/dL 12-16 H code = 718-7) POC hematocrit (test 54 % 37-47 H code = 4544-3) Lab Interpretation Abnormal (test code = 92354-9) [facility] [Presence] in Respiratory specimen by EMANUEL with probe qagzfnalj1182-31-38 07:53:49 Test Item Value Reference Range Interpretation Comments SARS-CoV-2 (COVID-19) RNA Not detected Not-Detected [Presence] in Respiratory specimen by EMANUEL with probe detection (test code = 25878-4) 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 (test code = 33724-2) Whether the patient has symptoms related to condition of interest (test code = 71902-7) Patient was hospitalized because of this condition (test code = 51369-4) Whether the patient was admitted to intensive care unit (ICU) for condition of interest (test code = 57808-6) Whether patient resides in a congregate care setting (test code = 66207-2) [place] 289131-08-11 08:17:00 Test Item Value Reference Range Interpretation Comments Glucose Lvl (test code = Glucose Lvl) 94 70-99 [place] 120281-08-11 08:17:00 Test Item Value Reference Range Interpretation Comments BUN (test code = BUN) 27 7-22 [place] 120281-08-11 08:17:00 Test Item Value Reference Range Interpretation Comments Creatinine Lvl (test code = Creatinine 4.95 0.50-1.40 Lvl) [place] 120281-08-11 08:17:00 Test Item Value Reference Range Interpretation Comments Sodium Lvl (test code = Sodium Lvl) 136 135-145 [place] 120281-08-11 08:17:00 Test Item Value Reference Range Interpretation Comments Potassium Lvl (test code = Potassium 3.9 3.5-5.1 Lvl) [place] 120281-08-11 08:17:00 Test Item Value Reference Range Interpretation Comments Chloride Lvl (test code = Chloride Lvl) 103 95-109 [place] 120281-08-11 08:17:00 Test Item Value Reference Range Interpretation Comments CO2 (test code = CO2) 30 24-32 [place] 120281-08-11 08:17:00 Test Item Value Reference Range Interpretation Comments AGAP (test code = AGAP) 6.9 10.0-20.0 [place] 120281-08-11 08:17:00 Test Item Value Reference Range Interpretation Comments Calcium Lvl (test code = Calcium Lvl) 8.5 8.5-10.5 [place] 120281-08-11 08:17:00 Test Item Value Reference Range Interpretation Comments eGFR (test code = eGFR) 10 [place] 120281-08-11 08:17:00 Test Item Value Reference Range Interpretation Comments Phosphorus (test code = Phosphorus) 3.0 2.5-4.5 [place] 120281-08-11 08:17:00 Test Item Value Reference Range Interpretation Comments Magnesium Lvl (test code = Magnesium 2.4 1.8-2.4 Lvl) [facility]ZNH[facility]XUVA8272[facility]:00 Test Item Value Reference Range Interpretation Comments WBC (test code = WBC) 2.3 3.7-10.4 [facility] HospitalDwtxuurKOZEJPLNGG6522-81-99 08:17:00 Test Item Value Reference Range Interpretation Comments RBC (test code = RBC) 2.65 4.20-5.40 [facility] HospitalZepocczMFWBTJKTJH5598-06-43 08:17:00 Test Item Value Reference Range Interpretation Comments Hgb (test code = Hgb) 7.9 12.0-16.0 [facility] HospitalHaydjlwNKAJNUMHGS7445-73-09 08:17:00 Test Item Value Reference Range Interpretation Comments Hct (test code = Hct) 24.0 36.0-48.0 [facility] HospitalSsmzuypLZJWTPYTNA2130-63-77 08:17:00 Test Item Value Reference Range Interpretation Comments MCV (test code = MCV) 90.6 80.0-98.0 [facility] HospitalJojwktkFTCBGGXMJF1754-16-22 08:17:00 Test Item Value Reference Range Interpretation Comments MCH (test code = MCH) 29.7 pg 27.0-31.0 [facility] HospitalHejwjwiKRHUWIREDK5949-01-07 08:17:00 Test Item Value Reference Range Interpretation Comments MCHC (test code = MCHC) 32.7 32.0-36.0 [facility] HospitalYvftfkiWFYBIQMSJH1776-79-94 08:17:00 Test Item Value Reference Range Interpretation Comments RDW (test code = RDW) 19.1 11.5-14.5 [facility] HospitalSqrnoyeCPRCWAJXNK4349-54-88 08:17:00 Test Item Value Reference Range Interpretation Comments Platelet (test code = Platelet) 71 133-450 [facility] HospitalXcqnwkhPAZPVVLYSY9331-88-81 08:17:00 Test Item Value Reference Range Interpretation Comments MPV (test code = MPV) 9.9 7.4-10.4 [place] 319711-08-11 08:17:00 Test Item Value Reference Range Interpretation Comments Segs (test code = Segs) 56.1 45.0-75.0 [facility] HospitalQhanrprPKHZDFTLDJ2926-29-33 08:17:00 Test Item Value Reference Range Interpretation Comments Lymphocytes (test code = Lymphocytes) 28.9 20.0-40.0 [place] 319711-08-11 08:17:00 Test Item Value Reference Range Interpretation Comments Monocytes (test code = Monocytes) 8.1 2.0-12.0 [place] 319711-08-11 08:17:00 Test Item Value Reference Range Interpretation Comments Eosinophils (test code = 5.9 See_Comment [A utomated message] The Eosinophils) system which ge nerated this result tra nsmitted reference range : <=4.0. The reference r leo was not used to int erpret this result as normal/abnormal . [place] 319711-08-11 08:17:00 Test Item Value Reference Range Interpretation Comments Basophils (test code = 1.0 See_Comment [Aut omated message] The Basophils) system which ge nerated this result tra nsmitted reference range : <=1.0. The reference r leo was not used to int erpret this result as normal/abnormal . [place] 319711-08-11 08:17:00 Test Item Value Reference Range Interpretation Comments Neutrophils # (test code = Neutrophils 1.3 1.5-8.1 #) [place] 319711-08-11 08:17:00 Test Item Value Reference Range Interpretation Comments Lymphocytes # (test code = Lymphocytes 0.7 1.0-5.5 #) [place] 319711-08-11 08:17:00 Test Item Value Reference Range Interpretation Comments Monocytes # (test code 0.2 See_Comment [Aut omated message] The = Monocytes #) system which generated this result tra nsmitted reference range : <=0.8. The reference r leo was not used to int erpret this result as normal/abnormal . [facility] HospitalMfojqicFTWZWTZDJO1977-75-10 08:17:00 Test Item Value Reference Range Interpretation Comments Eosinophils # (test code 0.1 See_Comment [A utomated message] The = Eosinophils #) system whic h generated this result tra nsmitted reference range : <=0.5. The reference r leo was not used to int erpret this result as normal/abnormal . [facility] EFGGF3797-53-96 08:17:00 Test Item Value Reference Range Interpretation Comments Glucose Lvl (test code = Glucose Lvl) 94 70-99 [facility] GZDUL1188-25-65 08:17:00 Test Item Value Reference Range Interpretation Comments BUN (test code = BUN) 27 7-22 [place] 120281-08-11 08:17:00 Test Item Value Reference Range Interpretation Comments Creatinine Lvl (test code = Creatinine 4.95 0.50-1.40 Lvl) [place] 120281-08-11 08:17:00 Test Item Value Reference Range Interpretation Comments Sodium Lvl (test code = Sodium Lvl) 136 135-145 [place] 120281-08-11 08:17:00 Test Item Value Reference Range Interpretation Comments Potassium Lvl (test code = Potassium 3.9 3.5-5.1 Lvl) [place] 120281-08-11 08:17:00 Test Item Value Reference Range Interpretation Comments Chloride Lvl (test code = Chloride Lvl) 103 95-109 [place] 120281-08-11 08:17:00 Test Item Value Reference Range Interpretation Comments CO2 (test code = CO2) 30 24-32 [place] 120281-08-11 08:17:00 Test Item Value Reference Range Interpretation Comments AGAP (test code = AGAP) 6.9 10.0-20.0 [place] 120281-08-11 08:17:00 Test Item Value Reference Range Interpretation Comments Calcium Lvl (test code = Calcium Lvl) 8.5 8.5-10.5 [place] 120281-08-11 08:17:00 Test Item Value Reference Range Interpretation Comments eGFR (test code = eGFR) 10 [place] 120281-08-11 08:17:00 Test Item Value Reference Range Interpretation Comments Phosphorus (test code = Phosphorus) 3.0 2.5-4.5 [place] 120281-08-11 08:17:00 Test Item Value Reference Range Interpretation Comments Magnesium Lvl (test code = Magnesium 2.4 1.8-2.4 Lvl) [facility] HospitalOucoqnrYDWNIKGVRD5656-07-50 08:17:00 Test Item Value Reference Range Interpretation Comments WBC (test code = WBC) 2.3 3.7-10.4 [place] 319711-08-11 08:17:00 Test Item Value Reference Range Interpretation Comments RBC (test code = RBC) 2.65 4.20-5.40 [place] 319711-08-11 08:17:00 Test Item Value Reference Range Interpretation Comments Hgb (test code = Hgb) 7.9 12.0-16.0 [place] 319711-08-11 08:17:00 Test Item Value Reference Range Interpretation Comments Hct (test code = Hct) 24.0 36.0-48.0 [facility] HospitalHpqdfpnJJKHTZDYEK1267-41-17 08:17:00 Test Item Value Reference Range Interpretation Comments MCV (test code = MCV) 90.6 80.0-98.0 [place] 319711-08-11 08:17:00 Test Item Value Reference Range Interpretation Comments MCH (test code = MCH) 29.7 pg 27.0-31.0 [facility] HospitalRoxrtbbHYAIOOKSYG0603-00-35 08:17:00 Test Item Value Reference Range Interpretation Comments MCHC (test code = MCHC) 32.7 32.0-36.0 [facility] HospitalCaobitfUICQIOINGU7371-73-27 08:17:00 Test Item Value Reference Range Interpretation Comments RDW (test code = RDW) 19.1 11.5-14.5 [facility] HospitalLpjpwreTMQRAGVTAR7017-78-77 08:17:00 Test Item Value Reference Range Interpretation Comments Platelet (test code = Platelet) 71 133-450 [facility] HospitalJvgcbcxVXEFWUBALX4662-32-60 08:17:00 Test Item Value Reference Range Interpretation Comments MPV (test code = MPV) 9.9 7.4-10.4 [facility] HospitalMxmhavwCQTLTFJGDW0870-10-73 08:17:00 Test Item Value Reference Range Interpretation Comments Segs (test code = Segs) 56.1 45.0-75.0 [facility] HospitalEkhqocyELUZTICOYL5912-87-38 08:17:00 Test Item Value Reference Range Interpretation Comments Lymphocytes (test code = Lymphocytes) 28.9 20.0-40.0 [place] 319711-08-11 08:17:00 Test Item Value Reference Range Interpretation Comments Monocytes (test code = Monocytes) 8.1 2.0-12.0 [facility] HospitalOkmeyejSDDSDVYHDQ6268-53-07 08:17:00 Test Item Value Reference Range Interpretation Comments Eosinophils (test code = 5.9 See_Comment [A utomated message] The Eosinophils) system which ge nerated this result tra nsmitted reference range : <=4.0. The reference r leo was not used to int erpret this result as normal/abnormal . [place] 319711-08-11 08:17:00 Test Item Value Reference Range Interpretation Comments Basophils (test code = 1.0 See_Comment [Aut omated message] The Basophils) system which ge nerated this result tra nsmitted reference range : <=1.0. The reference r leo was not used to int erpret this result as normal/abnormal . [place] 319711-08-11 08:17:00 Test Item Value Reference Range Interpretation Comments Neutrophils # (test code = Neutrophils 1.3 1.5-8.1 #) [place] 319711-08-11 08:17:00 Test Item Value Reference Range Interpretation Comments Lymphocytes # (test code = Lymphocytes 0.7 1.0-5.5 #) [facility] HospitalMpwcfisCZUAUZHWWF5413-22-83 08:17:00 Test Item Value Reference Range Interpretation Comments Monocytes # (test code 0.2 See_Comment [Aut omated message] The = Monocytes #) system which generated this result tra nsmitted reference range : <=0.8. The reference r leo was not used to int erpret this result as normal/abnormal . [facility] HospitalEjhdzxiLNNFDITCBR7586-09-52 08:17:00 Test Item Value Reference Range Interpretation Comments Eosinophils # (test code 0.1 See_Comment [A utomated message] The = Eosinophils #) system whic h generated this result tra nsmitted reference range : <=0.5. The reference r leo was not used to int erpret this result as normal/abnormal . [facility] GDAQI4530-30-41 08:17:00 Test Item Value Reference Range Interpretation Comments Glucose Lvl (test code = Glucose Lvl) 94 70-99 [facility] YURRN3321-31-35 08:17:00 Test Item Value Reference Range Interpretation Comments BUN (test code = BUN) 27 7-22 [place] 120281-08-11 08:17:00 Test Item Value Reference Range Interpretation Comments Creatinine Lvl (test code = Creatinine 4.95 0.50-1.40 Lvl) [place] 120281-08-11 08:17:00 Test Item Value Reference Range Interpretation Comments Sodium Lvl (test code = Sodium Lvl) 136 135-145 [place] 120281-08-11 08:17:00 Test Item Value Reference Range Interpretation Comments Potassium Lvl (test code = Potassium 3.9 3.5-5.1 Lvl) [place] 120281-08-11 08:17:00 Test Item Value Reference Range Interpretation Comments Chloride Lvl (test code = Chloride Lvl) 103 95-109 [place] 120281-08-11 08:17:00 Test Item Value Reference Range Interpretation Comments CO2 (test code = CO2) 30 24-32 [place] 120281-08-11 08:17:00 Test Item Value Reference Range Interpretation Comments AGAP (test code = AGAP) 6.9 10.0-20.0 [place] 120281-08-11 08:17:00 Test Item Value Reference Range Interpretation Comments Calcium Lvl (test code = Calcium Lvl) 8.5 8.5-10.5 [place] 120281-08-11 08:17:00 Test Item Value Reference Range Interpretation Comments eGFR (test code = eGFR) 10 [place] 120281-08-11 08:17:00 Test Item Value Reference Range Interpretation Comments Phosphorus (test code = Phosphorus) 3.0 2.5-4.5 [place] 120281-08-11 08:17:00 Test Item Value Reference Range Interpretation Comments Magnesium Lvl (test code = Magnesium 2.4 1.8-2.4 Lvl) [place] 319711-08-11 08:17:00 Test Item Value Reference Range Interpretation Comments WBC (test code = WBC) 2.3 3.7-10.4 [place] [address]-08-11 08:17:00 Test Item Value Reference Range Interpretation Comments RBC (test code = RBC) 2.65 4.20-5.40 [place] 319711-08-11 08:17:00 Test Item Value Reference Range Interpretation Comments Hgb (test code = Hgb) 7.9 12.0-16.0 [place] [address]-08-11 08:17:00 Test Item Value Reference Range Interpretation Comments Hct (test code = Hct) 24.0 36.0-48.0 [place] 319711-08-11 08:17:00 Test Item Value Reference Range Interpretation Comments MCV (test code = MCV) 90.6 80.0-98.0 [place] 319711-08-11 08:17:00 Test Item Value Reference Range Interpretation Comments MCH (test code = MCH) 29.7 pg 27.0-31.0 [place] 319711-08-11 08:17:00 Test Item Value Reference Range Interpretation Comments MCHC (test code = MCHC) 32.7 32.0-36.0 [place] 319711-08-11 08:17:00 Test Item Value Reference Range Interpretation Comments RDW (test code = RDW) 19.1 11.5-14.5 [place] 319711-08-11 08:17:00 Test Item Value Reference Range Interpretation Comments Platelet (test code = Platelet) 71 133-450 [place] 319711-08-11 08:17:00 Test Item Value Reference Range Interpretation Comments MPV (test code = MPV) 9.9 7.4-10.4 [place] 319711-08-11 08:17:00 Test Item Value Reference Range Interpretation Comments Segs (test code = Segs) 56.1 45.0-75.0 [place] 319711-08-11 08:17:00 Test Item Value Reference Range Interpretation Comments Lymphocytes (test code = Lymphocytes) 28.9 20.0-40.0 [place] 319711-08-11 08:17:00 Test Item Value Reference Range Interpretation Comments Monocytes (test code = Monocytes) 8.1 2.0-12.0 [place] 319711-08-11 08:17:00 Test Item Value Reference Range Interpretation Comments Eosinophils (test code = 5.9 See_Comment [A utomated message] The Eosinophils) system which ge nerated this result tra nsmitted reference range : <=4.0. The reference r leo was not used to int erpret this result as normal/abnormal . [place] 319711-08-11 08:17:00 Test Item Value Reference Range Interpretation Comments Basophils (test code = 1.0 See_Comment [Aut omated message] The Basophils) system which ge nerated this result tra nsmitted reference range : <=1.0. The reference r leo was not used to int erpret this result as normal/abnormal . [place] [address]-08-11 08:17:00 Test Item Value Reference Range Interpretation Comments Neutrophils # (test code = Neutrophils 1.3 1.5-8.1 #) [place] 319711-08-11 08:17:00 Test Item Value Reference Range Interpretation Comments Lymphocytes # (test code = Lymphocytes 0.7 1.0-5.5 #) [place] 319711-08-11 08:17:00 Test Item Value Reference Range Interpretation Comments Monocytes # (test code 0.2 See_Comment [Aut omated message] The = Monocytes #) system which generated this result tra nsmitted reference range : <=0.8. The reference r leo was not used to int erpret this result as normal/abnormal . [place] [address]-08-11 08:17:00 Test Item Value Reference Range Interpretation Comments Eosinophils # (test code 0.1 See_Comment [A utomated message] The = Eosinophils #) system whic h generated this result tra nsmitted reference range : <=0.5. The reference r leo was not used to int erpret this result as normal/abnormal . [place] 120281-08-11 08:17:00 Test Item Value Reference Range Interpretation Comments Glucose Lvl (test code = Glucose Lvl) 94 70-99 [place] 120281-08-11 08:17:00 Test Item Value Reference Range Interpretation Comments BUN (test code = BUN) 27 7-22 [place] 120281-08-11 08:17:00 Test Item Value Reference Range Interpretation Comments Creatinine Lvl (test code = Creatinine 4.95 0.50-1.40 Lvl) [place] 120281-08-11 08:17:00 Test Item Value Reference Range Interpretation Comments Sodium Lvl (test code = Sodium Lvl) 136 135-145 [place] 120281-08-11 08:17:00 Test Item Value Reference Range Interpretation Comments Potassium Lvl (test code = Potassium 3.9 3.5-5.1 Lvl) [place] [address]-08-11 08:17:00 Test Item Value Reference Range Interpretation Comments Chloride Lvl (test code = Chloride Lvl) 103 95-109 [place] 120281-08-11 08:17:00 Test Item Value Reference Range Interpretation Comments CO2 (test code = CO2) 30 24-32 [place] 120281-08-11 08:17:00 Test Item Value Reference Range Interpretation Comments AGAP (test code = AGAP) 6.9 10.0-20.0 [place] 120281-08-11 08:17:00 Test Item Value Reference Range Interpretation Comments Calcium Lvl (test code = Calcium Lvl) 8.5 8.5-10.5 [place] 120281-08-11 08:17:00 Test Item Value Reference Range Interpretation Comments eGFR (test code = eGFR) 10 [place] 120281-08-11 08:17:00 Test Item Value Reference Range Interpretation Comments Phosphorus (test code = Phosphorus) 3.0 2.5-4.5 [place] 120281-08-11 08:17:00 Test Item Value Reference Range Interpretation Comments Magnesium Lvl (test code = Magnesium 2.4 1.8-2.4 Lvl) [place] 319711-08-11 08:17:00 Test Item Value Reference Range Interpretation Comments WBC (test code = WBC) 2.3 3.7-10.4 [place] 319711-08-11 08:17:00 Test Item Value Reference Range Interpretation Comments RBC (test code = RBC) 2.65 4.20-5.40 [place] 319711-08-11 08:17:00 Test Item Value Reference Range Interpretation Comments Hgb (test code = Hgb) 7.9 12.0-16.0 [place] [address]-08-11 08:17:00 Test Item Value Reference Range Interpretation Comments Hct (test code = Hct) 24.0 36.0-48.0 [place] [address]-08-11 08:17:00 Test Item Value Reference Range Interpretation Comments MCV (test code = MCV) 90.6 80.0-98.0 [place] [address]-08-11 08:17:00 Test Item Value Reference Range Interpretation Comments MCH (test code = MCH) 29.7 pg 27.0-31.0 [place] [address]-08-11 08:17:00 Test Item Value Reference Range Interpretation Comments MCHC (test code = MCHC) 32.7 32.0-36.0 [facility] HospitalYbkclgtOOHZADYLTW1312-83-01 08:17:00 Test Item Value Reference Range Interpretation Comments RDW (test code = RDW) 19.1 11.5-14.5 [place] 319711-08-11 08:17:00 Test Item Value Reference Range Interpretation Comments Platelet (test code = Platelet) 71 133-450 [facility] HospitalQtbxzpaAJQPUSXCGR0209-30-16 08:17:00 Test Item Value Reference Range Interpretation Comments MPV (test code = MPV) 9.9 7.4-10.4 [place] 319711-08-11 08:17:00 Test Item Value Reference Range Interpretation Comments Segs (test code = Segs) 56.1 45.0-75.0 [place] 319711-08-11 08:17:00 Test Item Value Reference Range Interpretation Comments Lymphocytes (test code = Lymphocytes) 28.9 20.0-40.0 [facility] HospitalThebszfXLAZGCMJNP0378-89-30 08:17:00 Test Item Value Reference Range Interpretation Comments Monocytes (test code = Monocytes) 8.1 2.0-12.0 [facility] HospitalNyacsyfVWSWGDYTNX8681-24-71 08:17:00 Test Item Value Reference Range Interpretation Comments Eosinophils (test code = 5.9 See_Comment [A utomated message] The Eosinophils) system which ge nerated this result tra nsmitted reference range : <=4.0. The reference r leo was not used to int erpret this result as normal/abnormal . [facility] HospitalCcoowkcVQOIWBKUCH1130-64-75 08:17:00 Test Item Value Reference Range Interpretation Comments Basophils (test code = 1.0 See_Comment [Aut omated message] The Basophils) system which ge nerated this result tra nsmitted reference range : <=1.0. The reference r leo was not used to int erpret this result as normal/abnormal . [facility] HospitalQpojqpaNQAAJRVIXB2085-23-61 08:17:00 Test Item Value Reference Range Interpretation Comments Neutrophils # (test code = Neutrophils 1.3 1.5-8.1 #) [place] 319711-08-11 08:17:00 Test Item Value Reference Range Interpretation Comments Lymphocytes # (test code = Lymphocytes 0.7 1.0-5.5 #) [place] 319711-08-11 08:17:00 Test Item Value Reference Range Interpretation Comments Monocytes # (test code 0.2 See_Comment [Aut omated message] The = Monocytes #) system which generated this result tra nsmitted reference range : <=0.8. The reference r leo was not used to int erpret this result as normal/abnormal . [place] 319711-08-11 08:17:00 Test Item Value Reference Range Interpretation Comments Eosinophils # (test code 0.1 See_Comment [A utomated message] The = Eosinophils #) system whic h generated this result tra nsmitted reference range : <=0.5. The reference r leo was not used to int erpret this result as normal/abnormal . [place] 120281-08-11 08:17:00 Test Item Value Reference Range Interpretation Comments Glucose Lvl (test code = Glucose Lvl) 94 70-99 [place] 120281-08-11 08:17:00 Test Item Value Reference Range Interpretation Comments BUN (test code = BUN) 27 7-22 [place] 120281-08-11 08:17:00 Test Item Value Reference Range Interpretation Comments Creatinine Lvl (test code = Creatinine 4.95 0.50-1.40 Lvl) [place] 120281-08-11 08:17:00 Test Item Value Reference Range Interpretation Comments Sodium Lvl (test code = Sodium Lvl) 136 135-145 [place] 120281-08-11 08:17:00 Test Item Value Reference Range Interpretation Comments Potassium Lvl (test code = Potassium 3.9 3.5-5.1 Lvl) [place] 120281-08-11 08:17:00 Test Item Value Reference Range Interpretation Comments Chloride Lvl (test code = Chloride Lvl) 103 95-109 [place] 120281-08-11 08:17:00 Test Item Value Reference Range Interpretation Comments CO2 (test code = CO2) 30 24-32 [place] 120281-08-11 08:17:00 Test Item Value Reference Range Interpretation Comments AGAP (test code = AGAP) 6.9 10.0-20.0 [place] 120281-08-11 08:17:00 Test Item Value Reference Range Interpretation Comments Calcium Lvl (test code = Calcium Lvl) 8.5 8.5-10.5 [place] 120281-08-11 08:17:00 Test Item Value Reference Range Interpretation Comments eGFR (test code = eGFR) 10 [place] 120281-08-11 08:17:00 Test Item Value Reference Range Interpretation Comments Phosphorus (test code = Phosphorus) 3.0 2.5-4.5 [place] 120281-08-11 08:17:00 Test Item Value Reference Range Interpretation Comments Magnesium Lvl (test code = Magnesium 2.4 1.8-2.4 Lvl) [place] 319711-08-11 08:17:00 Test Item Value Reference Range Interpretation Comments WBC (test code = WBC) 2.3 3.7-10.4 [place] 319711-08-11 08:17:00 Test Item Value Reference Range Interpretation Comments RBC (test code = RBC) 2.65 4.20-5.40 [place] 319711-08-11 08:17:00 Test Item Value Reference Range Interpretation Comments Hgb (test code = Hgb) 7.9 12.0-16.0 [place] 319711-08-11 08:17:00 Test Item Value Reference Range Interpretation Comments Hct (test code = Hct) 24.0 36.0-48.0 [place] 319711-08-11 08:17:00 Test Item Value Reference Range Interpretation Comments MCV (test code = MCV) 90.6 80.0-98.0 [place] 319711-08-11 08:17:00 Test Item Value Reference Range Interpretation Comments MCH (test code = MCH) 29.7 pg 27.0-31.0 [place] 319711-08-11 08:17:00 Test Item Value Reference Range Interpretation Comments MCHC (test code = MCHC) 32.7 32.0-36.0 [place] 319711-08-11 08:17:00 Test Item Value Reference Range Interpretation Comments RDW (test code = RDW) 19.1 11.5-14.5 [place] 319711-08-11 08:17:00 Test Item Value Reference Range Interpretation Comments Platelet (test code = Platelet) 71 133-450 [facility] HospitalGwvmtgaHQAESRLJTO1696-32-58 08:17:00 Test Item Value Reference Range Interpretation Comments MPV (test code = MPV) 9.9 7.4-10.4 [facility] [facility]QL[facility]UTBG2774-87-56 08:17:00 Test Item Value Reference Range Interpretation Comments Segs (test code = Segs) 56.1 45.0-75.0 [facility]qegxoxNJEGLKSZKU7680-57-26 08:17:00 Test Item Value Reference Range Interpretation Comments Lymphocytes (test code = Lymphocytes) 28.9 20.0-40.0 [facility]AejpmnrSIYUAWTDGN4410-44-83 08:17:00 Test Item Value Reference Range Interpretation Comments Monocytes (test code = Monocytes) 8.1 2.0-12.0 [facility]IgsrdncXDLCJBKBDJ6222-88-67 08:17:00 Test Item Value Reference Range Interpretation Comments Eosinophils (test code = 5.9 See_Comment [A utomated message] The Eosinophils) system which ge nerated this result tra nsmitted reference range : <=4.0. The reference r leo was not used to int erpret this result as normal/abnormal . [facility] HospitalEkgfdvnKWPDNQHPZL0195-31-52 08:17:00 Test Item Value Reference Range Interpretation Comments Basophils (test code = 1.0 See_Comment [Aut omated message] The Basophils) system which ge nerated this result tra nsmitted reference range : <=1.0. The reference r leo was not used to int erpret this result as normal/abnormal . [facility] HospitalVeklgqpMILCYGEEGC9525-86-55 08:17:00 Test Item Value Reference Range Interpretation Comments Neutrophils # (test code = Neutrophils 1.3 1.5-8.1 #) [facility] HospitalKlwcoxbHTIHJXTKPA9326-06-02 08:17:00 Test Item Value Reference Range Interpretation Comments Lymphocytes # (test code = Lymphocytes 0.7 1.0-5.5 #) [facility] HospitalT[id number] 08:17:00 Test Item Value Reference Range Interpretation Comments Monocytes # (test code 0.2 See_Comment [Aut omated message] The = Monocytes #) system which generated this result tra nsmitted reference range : <=0.8. The reference r leo was not used to int erpret this result as normal/abnormal . [place] 319711-08-11 08:17:00 Test Item Value Reference Range Interpretation Comments Eosinophils # (test code 0.1 See_Comment [A utomated message] The = Eosinophils #) system whic h generated this result tra nsmitted reference range : <=0.5. The reference r leo was not used to int erpret this result as normal/abnormal . [place] 120281-08-10 09:30:00 Test Item Value Reference Range Interpretation Comments Glucose Lvl (test code = Glucose Lvl) 61 70-99 [place] [address]-08-10 09:30:00 Test Item Value Reference Range Interpretation Comments BUN (test code = BUN) 13 7-22 [place] 120281-08-10 09:30:00 Test Item Value Reference Range Interpretation Comments Creatinine Lvl (test code = Creatinine 3.71 0.50-1.40 Lvl) [place] 120281-08-10 09:30:00 Test Item Value Reference Range Interpretation Comments Sodium Lvl (test code = Sodium Lvl) 136 135-145 [place] 120281-08-10 09:30:00 Test Item Value Reference Range Interpretation Comments Potassium Lvl (test code = Potassium 4.3 3.5-5.1 Lvl) [place] 120281-08-10 09:30:00 Test Item Value Reference Range Interpretation Comments Chloride Lvl (test code = Chloride Lvl) 103 95-109 [place] 120281-08-10 09:30:00 Test Item Value Reference Range Interpretation Comments CO2 (test code = CO2) 27 24-32 [place] 120281-08-10 09:30:00 Test Item Value Reference Range Interpretation Comments Calcium Lvl (test code = Calcium Lvl) 7.9 8.5-10.5 [place] 120281-08-10 09:30:00 Test Item Value Reference Range Interpretation Comments AGAP (test code = AGAP) 10.3 10.0-20.0 [place] [address]-08-10 09:30:00 Test Item Value Reference Range Interpretation Comments eGFR (test code = eGFR) 15 [place] 120281-08-10 09:30:00 Test Item Value Reference Range Interpretation Comments Magnesium Lvl (test code = Magnesium 2.3 1.8-2.4 Lvl) [facility]2021-08-10 09:30:00 Test Item Value Reference Range Interpretation Comments Phosphorus (test code = Phosphorus) 3.1 2.5-4.5 [facility] HospitalSnuspczNZYSTMOPQQ2481-99-25 09:30:00 Test Item Value Reference Range Interpretation Comments Segs (test code = Segs) 61.5 45.0-75.0 [place] 319711-08-10 09:30:00 Test Item Value Reference Range Interpretation Comments Lymphocytes (test code = Lymphocytes) 24.6 20.0-40.0 [place] 319711-08-10 09:30:00 Test Item Value Reference Range Interpretation Comments Monocytes (test code = Monocytes) 7.4 2.0-12.0 [place] 319711-08-10 09:30:00 Test Item Value Reference Range Interpretation Comments Eosinophils (test code = 5.5 See_Comment [A utomated message] The Eosinophils) system which ge nerated this result tra nsmitted reference range : <=4.0. The reference r leo was not used to int erpret this result as normal/abnormal . [facility] HospitalLdnfkbmVOKVLMFHMN5096-85-60 09:30:00 Test Item Value Reference Range Interpretation Comments Basophils (test code = 1.0 See_Comment [Aut omated message] The Basophils) system which ge nerated this result tra nsmitted reference range : <=1.0. The reference r leo was not used to int erpret this result as normal/abnormal . [facility] HospitalAagqwyqOCKIVDWCEF4886-85-57 09:30:00 Test Item Value Reference Range Interpretation Comments Neutrophils # (test code = Neutrophils 1.6 1.5-8.1 #) [place] 319711-08-10 09:30:00 Test Item Value Reference Range Interpretation Comments Lymphocytes # (test code = Lymphocytes 0.6 1.0-5.5 #) [place] 319711-08-10 09:30:00 Test Item Value Reference Range Interpretation Comments Monocytes # (test code 0.2 See_Comment [Aut omated message] The = Monocytes #) system which generated this result tra nsmitted reference range : <=0.8. The reference r leo was not used to int erpret this result as normal/abnormal . [facility] HospitalNqvbruuEQJTMOTJCN8700-36-47 09:30:00 Test Item Value Reference Range Interpretation Comments Eosinophils # (test code 0.1 See_Comment [A utomated message] The = Eosinophils #) system [employer] generated this result tra nsmitted reference range : <=0.5. The reference r leo was not used to int erpret this result as normal/abnormal . [place] 319711-08-10 09:30:00 Test Item Value Reference Range Interpretation [...] studies, if clinically indicated, are recommended. CPT: 20988 [facility] HospitalMecurknXNAIOIKBCV3825-84-20 09:30:00 Test Item Value Reference Range Interpretation Comments WBC (test code = WBC) 2.5 3.7-10.4 [place] 319711-08-10 09:30:00 Test Item Value Reference Range Interpretation Comments RBC (test code = RBC) 2.68 4.20-5.40 [place] 319711-08-10 09:30:00 Test Item Value Reference Range Interpretation Comments Hgb (test code = Hgb) 8.2 12.0-16.0 [place] [address]-08-10 09:30:00 Test Item Value Reference Range Interpretation Comments Hct (test code = Hct) 24.3 36.0-48.0 [place] [address]-08-10 09:30:00 Test Item Value Reference Range Interpretation Comments MCV (test code = MCV) 90.9 80.0-98.0 [place] [address]-08-10 09:30:00 Test Item Value Reference Range Interpretation Comments MCH (test code = MCH) 30.5 pg 27.0-31.0 [place] [address]-08-10 09:30:00 Test Item Value Reference Range Interpretation Comments MCHC (test code = MCHC) 33.6 32.0-36.0 [place] 319711-08-10 09:30:00 Test Item Value Reference Range Interpretation Comments RDW (test code = RDW) 19.4 11.5-14.5 [place] 319711-08-10 09:30:00 Test Item Value Reference Range Interpretation Comments Platelet (test code = Platelet) 70 133-450 [facility] HospitalUkdxozvZFRYZHHJII8711-47-70 09:30:00 Test Item Value Reference Range Interpretation Comments MPV (test code = MPV) 10.7 7.4-10.4 [place] 120281-08-10 09:30:00 Test Item Value Reference Range Interpretation Comments Glucose Lvl (test code = Glucose Lvl) 61 70-99 [facility]2021-08-10 09:30:00 Test Item Value Reference Range Interpretation Comments BUN (test code = BUN) 13 7-22 [place] 120281-08-10 09:30:00 Test Item Value Reference Range Interpretation Comments Creatinine Lvl (test code = Creatinine 3.71 0.50-1.40 Lvl) [facility]2021-08-10 09:30:00 Test Item Value Reference Range Interpretation Comments Sodium Lvl (test code = Sodium Lvl) 136 135-145 [facility]2021-08-10 09:30:00 Test Item Value Reference Range Interpretation Comments Potassium Lvl (test code = Potassium 4.3 3.5-5.1 Lvl) [facility]2021-08-10 09:30:00 Test Item Value Reference Range Interpretation Comments Chloride Lvl (test code = Chloride Lvl) 103 95-109 [place] 120281-08-10 09:30:00 Test Item Value Reference Range Interpretation Comments CO2 (test code = CO2) 27 24-32 [facility]2021-08-10 09:30:00 Test Item Value Reference Range Interpretation Comments Calcium Lvl (test code = Calcium Lvl) 7.9 8.5-10.5 [facility]2021-08-10 09:30:00 Test Item Value Reference Range Interpretation Comments AGAP (test code = AGAP) 10.3 10.0-20.0 [place] 120281-08-10 09:30:00 Test Item Value Reference Range Interpretation Comments eGFR (test code = eGFR) 15 [place] [address]-08-10 09:30:00 Test Item Value Reference Range Interpretation Comments Magnesium Lvl (test code = Magnesium 2.3 1.8-2.4 Lvl) [place] 120281-08-10 09:30:00 Test Item Value Reference Range Interpretation Comments Phosphorus (test code = Phosphorus) 3.1 2.5-4.5 [place] 319711-08-10 09:30:00 Test Item Value Reference Range Interpretation Comments Segs (test code = Segs) 61.5 45.0-75.0 [place] [address]-08-10 09:30:00 Test Item Value Reference Range Interpretation Comments Lymphocytes (test code = Lymphocytes) 24.6 20.0-40.0 [place] [address]-08-10 09:30:00 Test Item Value Reference Range Interpretation Comments Monocytes (test code = Monocytes) 7.4 2.0-12.0 [place] 319711-08-10 09:30:00 Test Item Value Reference Range Interpretation Comments Eosinophils (test code = 5.5 See_Comment [A utomated message] The Eosinophils) system which ge nerated this result tra nsmitted reference range : <=4.0. The reference r leo was not used to int erpret this result as normal/abnormal . [place] 319711-08-10 09:30:00 Test Item Value Reference Range Interpretation Comments Basophils (test code = 1.0 See_Comment [Aut omated message] The Basophils) system which ge nerated this result tra nsmitted reference range : <=1.0. The reference r leo was not used to int erpret this result as normal/abnormal . [place] 319711-08-10 09:30:00 Test Item Value Reference Range Interpretation Comments Neutrophils # (test code = Neutrophils 1.6 1.5-8.1 #) [place] 319711-08-10 09:30:00 Test Item Value Reference Range Interpretation Comments Lymphocytes # (test code = Lymphocytes 0.6 1.0-5.5 #) [place] 319711-08-10 09:30:00 Test Item Value Reference Range Interpretation Comments Monocytes # (test code 0.2 See_Comment [Aut omated message] The = Monocytes #) system which generated this result tra nsmitted reference range : <=0.8. The reference r leo was not used to int erpret this result as normal/abnormal . [facility] HospitalTqudozzEIGKUCXKFU6319-10-85 09:30:00 Test Item Value Reference Range Interpretation Comments Eosinophils # (test code 0.1 See_Comment [A utomated message] The = Eosinophils #) system whic h generated this result tra nsmitted reference range : <=0.5. The reference r leo was not used to int erpret this result as normal/abnormal . [facility] HospitalTduzwnlHNNGDKQVGJ3883-04-24 09:30:00 Test Item Value Reference Range Interpretation [...] studies, if clinically indicated, are recommended. CPT: 54091 [place] 319711-08-10 09:30:00 Test Item Value Reference Range Interpretation Comments WBC (test code = WBC) 2.5 3.7-10.4 [place] 319711-08-10 09:30:00 Test Item Value Reference Range Interpretation Comments RBC (test code = RBC) 2.68 4.20-5.40 [place] 319711-08-10 09:30:00 Test Item Value Reference Range Interpretation Comments Hgb (test code = Hgb) 8.2 12.0-16.0 [place] [address]-08-10 09:30:00 Test Item Value Reference Range Interpretation Comments Hct (test code = Hct) 24.3 36.0-48.0 [place] [address]-08-10 09:30:00 Test Item Value Reference Range Interpretation Comments MCV (test code = MCV) 90.9 80.0-98.0 [place] [address]-08-10 09:30:00 Test Item Value Reference Range Interpretation Comments MCH (test code = MCH) 30.5 pg 27.0-31.0 [place] 319711-08-10 09:30:00 Test Item Value Reference Range Interpretation Comments MCHC (test code = MCHC) 33.6 32.0-36.0 [place] 319711-08-10 09:30:00 Test Item Value Reference Range Interpretation Comments RDW (test code = RDW) 19.4 11.5-14.5 [place] 319711-08-10 09:30:00 Test Item Value Reference Range Interpretation Comments Platelet (test code = Platelet) 70 133-450 [place] 319711-08-10 09:30:00 Test Item Value Reference Range Interpretation Comments MPV (test code = MPV) 10.7 7.4-10.4 [place] 120281-08-10 09:30:00 Test Item Value Reference Range Interpretation Comments Glucose Lvl (test code = Glucose Lvl) 61 70-99 [place] 120281-08-10 09:30:00 Test Item Value Reference Range Interpretation Comments BUN (test code = BUN) 13 7-22 [place] 120281-08-10 09:30:00 Test Item Value Reference Range Interpretation Comments Creatinine Lvl (test code = Creatinine 3.71 0.50-1.40 Lvl) [place] 120281-08-10 09:30:00 Test Item Value Reference Range Interpretation Comments Sodium Lvl (test code = Sodium Lvl) 136 135-145 [place] 120281-08-10 09:30:00 Test Item Value Reference Range Interpretation Comments Potassium Lvl (test code = Potassium 4.3 3.5-5.1 Lvl) [place] 120281-08-10 09:30:00 Test Item Value Reference Range Interpretation Comments Chloride Lvl (test code = Chloride Lvl) 103 95-109 [place] 120281-08-10 09:30:00 Test Item Value Reference Range Interpretation Comments CO2 (test code = CO2) 27 24-32 [place] 120281-08-10 09:30:00 Test Item Value Reference Range Interpretation Comments Calcium Lvl (test code = Calcium Lvl) 7.9 8.5-10.5 [place] 120281-08-10 09:30:00 Test Item Value Reference Range Interpretation Comments AGAP (test code = AGAP) 10.3 10.0-20.0 [place] [address]-08-10 09:30:00 Test Item Value Reference Range Interpretation Comments eGFR (test code = eGFR) 15 [place] 120281-08-10 09:30:00 Test Item Value Reference Range Interpretation Comments Magnesium Lvl (test code = Magnesium 2.3 1.8-2.4 Lvl) [place] [address]-08-10 09:30:00 Test Item Value Reference Range Interpretation Comments Phosphorus (test code = Phosphorus) 3.1 2.5-4.5 [place] [address]-08-10 09:30:00 Test Item Value Reference Range Interpretation Comments Segs (test code = Segs) 61.5 45.0-75.0 [place] [address]-08-10 09:30:00 Test Item Value Reference Range Interpretation Comments Lymphocytes (test code = Lymphocytes) 24.6 20.0-40.0 [place] [address]-08-10 09:30:00 Test Item Value Reference Range Interpretation Comments Monocytes (test code = Monocytes) 7.4 2.0-12.0 [place] [address]-08-10 09:30:00 Test Item Value Reference Range Interpretation Comments Eosinophils (test code = 5.5 See_Comment [A utomated message] The Eosinophils) system which ge nerated this result tra nsmitted reference range : <=4.0. The reference r leo was not used to int erpret this result as normal/abnormal . [place] 319711-08-10 09:30:00 Test Item Value Reference Range Interpretation Comments Basophils (test code = 1.0 See_Comment [Aut omated message] The Basophils) system which ge nerated this result tra nsmitted reference range : <=1.0. The reference r leo was not used to int erpret this result as normal/abnormal . [place] [address]-08-10 09:30:00 Test Item Value Reference Range Interpretation Comments Neutrophils # (test code = Neutrophils 1.6 1.5-8.1 #) [place] 319711-08-10 09:30:00 Test Item Value Reference Range Interpretation Comments Lymphocytes # (test code = Lymphocytes 0.6 1.0-5.5 #) [place] 319711-08-10 09:30:00 Test Item Value Reference Range Interpretation Comments Monocytes # (test code 0.2 See_Comment [Aut omated message] The = Monocytes #) system which generated this result tra nsmitted reference range : <=0.8. The reference r leo was not used to int erpret this result as normal/abnormal . [place] 319711-08-10 09:30:00 Test Item Value Reference Range Interpretation Comments Eosinophils # (test code 0.1 See_Comment [A utomated message] The = Eosinophils #) system whic h generated this result tra nsmitted reference range : <=0.5. The reference r leo was not used to int erpret this result as normal/abnormal . [facility]GavptihXNWNVNBQDA2496-57-15 09:30:00 Test Item Value Reference Range Interpretation [...] studies, if clinically indicated, are recommended. CPT: 73371 [facility] HospitalOkfvxbdYDFBTAVZDS9589-73-63 09:30:00 Test Item Value Reference Range Interpretation Comments WBC (test code = WBC) 2.5 3.7-10.4 [place] 319711-08-10 09:30:00 Test Item Value Reference Range Interpretation Comments RBC (test code = RBC) 2.68 4.20-5.40 [place] [address]-08-10 09:30:00 Test Item Value Reference Range Interpretation Comments Hgb (test code = Hgb) 8.2 12.0-16.0 [place] [address]-08-10 09:30:00 Test Item Value Reference Range Interpretation Comments Hct (test code = Hct) 24.3 36.0-48.0 [place] 319711-08-10 09:30:00 Test Item Value Reference Range Interpretation Comments MCV (test code = MCV) 90.9 80.0-98.0 [place] 319711-08-10 09:30:00 Test Item Value Reference Range Interpretation Comments MCH (test code = MCH) 30.5 pg 27.0-31.0 [place] 319711-08-10 09:30:00 Test Item Value Reference Range Interpretation Comments MCHC (test code = MCHC) 33.6 32.0-36.0 [place] [address]-08-10 09:30:00 Test Item Value Reference Range Interpretation Comments RDW (test code = RDW) 19.4 11.5-14.5 [place] 319711-08-10 09:30:00 Test Item Value Reference Range Interpretation Comments Platelet (test code = Platelet) 70 133-450 [place] 319711-08-10 09:30:00 Test Item Value Reference Range Interpretation Comments MPV (test code = MPV) 10.7 7.4-10.4 [place] 120281-08-10 09:30:00 Test Item Value Reference Range Interpretation Comments Glucose Lvl (test code = Glucose Lvl) 61 70-99 [place] 120281-08-10 09:30:00 Test Item Value Reference Range Interpretation Comments BUN (test code = BUN) 13 7-22 [facility]2021-08-10 09:30:00 Test Item Value Reference Range Interpretation Comments Creatinine Lvl (test code = Creatinine 3.71 0.50-1.40 Lvl) [facility]2021-08-10 09:30:00 Test Item Value Reference Range Interpretation Comments Sodium Lvl (test code = Sodium Lvl) 136 135-145 [place] 120281-08-10 09:30:00 Test Item Value Reference Range Interpretation Comments Potassium Lvl (test code = Potassium 4.3 3.5-5.1 Lvl) [place] 120281-08-10 09:30:00 Test Item Value Reference Range Interpretation Comments Chloride Lvl (test code = Chloride Lvl) 103 95-109 [place] 120281-08-10 09:30:00 Test Item Value Reference Range Interpretation Comments CO2 (test code = CO2) 27 24-32 [place] 120281-08-10 09:30:00 Test Item Value Reference Range Interpretation Comments Calcium Lvl (test code = Calcium Lvl) 7.9 8.5-10.5 [place] [address]-08-10 09:30:00 Test Item Value Reference Range Interpretation Comments AGAP (test code = AGAP) 10.3 10.0-20.0 [place] 120281-08-10 09:30:00 Test Item Value Reference Range Interpretation Comments eGFR (test code = eGFR) 15 [place] 120281-08-10 09:30:00 Test Item Value Reference Range Interpretation Comments Magnesium Lvl (test code = Magnesium 2.3 1.8-2.4 Lvl) [place] [address]-08-10 09:30:00 Test Item Value Reference Range Interpretation Comments Phosphorus (test code = Phosphorus) 3.1 2.5-4.5 [place] 319711-08-10 09:30:00 Test Item Value Reference Range Interpretation Comments Segs (test code = Segs) 61.5 45.0-75.0 [place] [address]-08-10 09:30:00 Test Item Value Reference Range Interpretation Comments Lymphocytes (test code = Lymphocytes) 24.6 20.0-40.0 [place] [address]-08-10 09:30:00 Test Item Value Reference Range Interpretation Comments Monocytes (test code = Monocytes) 7.4 2.0-12.0 [place] [address]-08-10 09:30:00 Test Item Value Reference Range Interpretation Comments Eosinophils (test code = 5.5 See_Comment [A utomated message] The Eosinophils) system which ge nerated this result tra nsmitted reference range : <=4.0. The reference r leo was not used to int erpret this result as normal/abnormal . [place] [address]-08-10 09:30:00 Test Item Value Reference Range Interpretation Comments Basophils (test code = 1.0 See_Comment [Aut omated message] The Basophils) system which ge nerated this result tra nsmitted reference range : <=1.0. The reference r leo was not used to int erpret this result as normal/abnormal . [place] [address]-08-10 09:30:00 Test Item Value Reference Range Interpretation Comments Neutrophils # (test code = Neutrophils 1.6 1.5-8.1 #) [place] 319711-08-10 09:30:00 Test Item Value Reference Range Interpretation Comments Lymphocytes # (test code = Lymphocytes 0.6 1.0-5.5 #) [place] 319711-08-10 09:30:00 Test Item Value Reference Range Interpretation Comments Monocytes # (test code 0.2 See_Comment [Aut omated message] The = Monocytes #) system which generated this result tra nsmitted reference range : <=0.8. The reference r leo was not used to int erpret this result as normal/abnormal . [place] [address]-08-10 09:30:00 Test Item Value Reference Range Interpretation Comments Eosinophils # (test code 0.1 See_Comment [A utomated message] The = Eosinophils #) system whic h generated this result tra nsmitted reference range : <=0.5. The reference r leo was not used to int erpret this result as normal/abnormal . [place] 319711-08-10 09:30:00 Test Item Value Reference Range Interpretation [...] studies, if clinically indicated, are recommended. CPT: 73298 [place] [address]-08-10 09:30:00 Test Item Value Reference Range Interpretation Comments WBC (test code = WBC) 2.5 3.7-10.4 [place] [address]-08-10 09:30:00 Test Item Value Reference Range Interpretation Comments RBC (test code = RBC) 2.68 4.20-5.40 [place] [address]-08-10 09:30:00 Test Item Value Reference Range Interpretation Comments Hgb (test code = Hgb) 8.2 12.0-16.0 [place] 319711-08-10 09:30:00 Test Item Value Reference Range Interpretation Comments Hct (test code = Hct) 24.3 36.0-48.0 [place] 319711-08-10 09:30:00 Test Item Value Reference Range Interpretation Comments MCV (test code = MCV) 90.9 80.0-98.0 [place] 319711-08-10 09:30:00 Test Item Value Reference Range Interpretation Comments MCH (test code = MCH) 30.5 pg 27.0-31.0 [place] 319711-08-10 09:30:00 Test Item Value Reference Range Interpretation Comments MCHC (test code = MCHC) 33.6 32.0-36.0 [place] 319711-08-10 09:30:00 Test Item Value Reference Range Interpretation Comments RDW (test code = RDW) 19.4 11.5-14.5 [place] 319711-08-10 09:30:00 Test Item Value Reference Range Interpretation Comments Platelet (test code = Platelet) 70 133-450 [facility]bjlPEJDNWEVCZ6195-93-99 09:30:00 Test Item Value Reference Range Interpretation Comments MPV (test code = MPV) 10.7 7.4-10.4 [facility]2021-08-10 09:30:00 Test Item Value Reference Range Interpretation Comments Glucose Lvl (test code = Glucose Lvl) 61 70-99 [facility]2021-08-10 09:30:00 Test Item Value Reference Range Interpretation Comments BUN (test code = BUN) 13 7-22 [place] 120281-08-10 09:30:00 Test Item Value Reference Range Interpretation Comments Creatinine Lvl (test code = Creatinine 3.71 0.50-1.40 Lvl) [place] 120281-08-10 09:30:00 Test Item Value Reference Range Interpretation Comments Sodium Lvl (test code = Sodium Lvl) 136 135-145 [place] 120281-08-10 09:30:00 Test Item Value Reference Range Interpretation Comments Potassium Lvl (test code = Potassium 4.3 3.5-5.1 Lvl) [place] 120281-08-10 09:30:00 Test Item Value Reference Range Interpretation Comments Chloride Lvl (test code = Chloride Lvl) 103 95-109 [place] 120281-08-10 09:30:00 Test Item Value Reference Range Interpretation Comments CO2 (test code = CO2) 27 24-32 [place] 120281-08-10 09:30:00 Test Item Value Reference Range Interpretation Comments Calcium Lvl (test code = Calcium Lvl) 7.9 8.5-10.5 [place] 120281-08-10 09:30:00 Test Item Value Reference Range Interpretation Comments AGAP (test code = AGAP) 10.3 10.0-20.0 [place] 120281-08-10 09:30:00 Test Item Value Reference Range Interpretation Comments eGFR (test code = eGFR) 15 [place] 120281-08-10 09:30:00 Test Item Value Reference Range Interpretation Comments Magnesium Lvl (test code = Magnesium 2.3 1.8-2.4 Lvl) [place] 120281-08-10 09:30:00 Test Item Value Reference Range Interpretation Comments Phosphorus (test code = Phosphorus) 3.1 2.5-4.5 [place] 319711-08-10 09:30:00 Test Item Value Reference Range Interpretation Comments Segs (test code = Segs) 61.5 45.0-75.0 [place] [address]-08-10 09:30:00 Test Item Value Reference Range Interpretation Comments Lymphocytes (test code = Lymphocytes) 24.6 20.0-40.0 [place] [address]-08-10 09:30:00 Test Item Value Reference Range Interpretation Comments Monocytes (test code = Monocytes) 7.4 2.0-12.0 [place] [address]-08-10 09:30:00 Test Item Value Reference Range Interpretation Comments Eosinophils (test code = 5.5 See_Comment [A utomated message] The Eosinophils) system which ge nerated this result tra nsmitted reference range : <=4.0. The reference r leo was not used to int erpret this result as normal/abnormal . [place] 319711-08-10 09:30:00 Test Item Value Reference Range Interpretation Comments Basophils (test code = 1.0 See_Comment [Aut omated message] The Basophils) system which ge nerated this result tra nsmitted reference range : <=1.0. The reference r leo was not used to int erpret this result as normal/abnormal . [facility]EntftpnTRFKVPVDUX1450[facility]13-56 09:30:00 Test Item Value Reference Range Interpretation Comments Neutrophils # (test code = Neutrophils 1.6 1.5-8.1 #) [facility]WflugouVSTBJHBFON5703-55-14 09:30:00 Test Item Value Reference Range Interpretation Comments Lymphocytes # (test code = Lymphocytes 0.6 1.0-5.5 #) [facility] HospitalNpxmprdAXOFPOTMBP8389-49-64 09:30:00 Test Item Value Reference Range Interpretation Comments Monocytes # (test code 0.2 See_Comment [Aut omated message] The = Monocytes #) system which generated this result tra nsmitted reference range : <=0.8. The reference r leo was not used to int erpret this result as normal/abnormal . [facility] HospitalJadoprcHKVIYEMTUK2367-03-52 09:30:00 Test Item Value Reference Range Interpretation Comments Eosinophils # (test code 0.1 See_Comment [A utomated message] The = Eosinophils #) system whic h generated this result tra nsmitted reference range : <=0.5. The reference r leo was not used to int erpret this result as normal/abnormal . [facility] HospitalElheijrVFBJPGHXGG8365-46-95 09:30:00 Test Item Value Reference Range Interpretation [...] studies, if clinically indicated, are recommended. CPT: 49502 [facility] HospitalMhsdgsgVGXBIVLYLT8708-33-46 09:30:00 Test Item Value Reference Range Interpretation Comments WBC (test code = WBC) 2.5 3.7-10.4 [place] 319711-08-10 09:30:00 Test Item Value Reference Range Interpretation Comments RBC (test code = RBC) 2.68 4.20-5.40 [place] 319711-08-10 09:30:00 Test Item Value Reference Range Interpretation Comments Hgb (test code = Hgb) 8.2 12.0-16.0 [facility] HospitalYcfbxfqJZBFZLCSDT9767-33-12 09:30:00 Test Item Value Reference Range Interpretation Comments Hct (test code = Hct) 24.3 36.0-48.0 [facility] HospitalWcnjrolVKAFUFKUOC8142-89-15 09:30:00 Test Item Value Reference Range Interpretation Comments MCV (test code = MCV) 90.9 80.0-98.0 [place] 319711-08-10 09:30:00 Test Item Value Reference Range Interpretation Comments MCH (test code = MCH) 30.5 pg 27.0-31.0 [facility] HospitalFeauqkqZZPXDESNQW4455-78-13 09:30:00 Test Item Value Reference Range Interpretation Comments MCHC (test code = MCHC) 33.6 32.0-36.0 [facility] HospitalAgkurrhJSCOAKPBEM7793-95-54 09:30:00 Test Item Value Reference Range Interpretation Comments RDW (test code = RDW) 19.4 11.5-14.5 [facility] HospitalOereeauSGIVBTNGPG4963-42-99 09:30:00 Test Item Value Reference Range Interpretation Comments Platelet (test code = Platelet) 70 133-450 [facility] HospitalTzmyozgMRADNZHTZR6607-60-18 09:30:00 Test Item Value Reference Range Interpretation Comments MPV (test code = MPV) 10.7 7.4-10.4 [facility]2021-08-09 05:10:00 Test Item Value Reference Range Interpretation Comments Glucose Lvl (test code = Glucose Lvl) 69 70-99 [facility]2021-08-09 05:10:00 Test Item Value Reference Range Interpretation Comments BUN (test code = BUN) 29 7-22 [place] 120281-08-09 05:10:00 Test Item Value Reference Range Interpretation Comments Creatinine Lvl (test code = Creatinine 5.14 0.50-1.40 Lvl) [facility]2021-08-09 05:10:00 Test Item Value Reference Range Interpretation Comments Sodium Lvl (test code = Sodium Lvl) 134 135-145 [place] 120281-08-09 05:10:00 Test Item Value Reference Range Interpretation Comments Potassium Lvl (test code = Potassium 5.1 3.5-5.1 Lvl) [place] 120281-08-09 05:10:00 Test Item Value Reference Range Interpretation Comments Chloride Lvl (test code = Chloride Lvl) 98 95-109 [place] 120281-08-09 05:10:00 Test Item Value Reference Range Interpretation Comments CO2 (test code = CO2) 29 24-32 [place] 120281-08-09 05:10:00 Test Item Value Reference Range Interpretation Comments Calcium Lvl (test code = Calcium Lvl) 7.6 8.5-10.5 [place] 120281-08-09 05:10:00 Test Item Value Reference Range Interpretation Comments AGAP (test code = AGAP) 12.1 10.0-20.0 [place] 120281-08-09 05:10:00 Test Item Value Reference Range Interpretation Comments eGFR (test code = eGFR) 10 [place] 120281-08-09 05:10:00 Test Item Value Reference Range Interpretation Comments Magnesium Lvl (test code = Magnesium 2.3 1.8-2.4 Lvl) [place] 120281-08-09 05:10:00 Test Item Value Reference Range Interpretation Comments Phosphorus (test code = Phosphorus) 5.0 2.5-4.5 [place] 319711-08-09 05:10:00 Test Item Value Reference Range Interpretation Comments WBC (test code = WBC) 2.7 3.7-10.4 [place] 319711-08-09 05:10:00 Test Item Value Reference Range Interpretation Comments RBC (test code = RBC) 2.80 4.20-5.40 [place] 319711-08-09 05:10:00 Test Item Value Reference Range Interpretation Comments Hgb (test code = Hgb) 8.5 12.0-16.0 [place] [address]-08-09 05:10:00 Test Item Value Reference Range Interpretation Comments Hct (test code = Hct) 25.7 36.0-48.0 [place] 319711-08-09 05:10:00 Test Item Value Reference Range Interpretation Comments MCV (test code = MCV) 91.7 80.0-98.0 [facility] HospitalGzgocysIJUKOVYYYO9827-12-02 05:10:00 Test Item Value Reference Range Interpretation Comments MCH (test code = MCH) 30.4 pg 27.0-31.0 [place] 319711-08-09 05:10:00 Test Item Value Reference Range Interpretation Comments MCHC (test code = MCHC) 33.1 32.0-36.0 [facility] HospitalFuuxjuwKOCYDJXKJT8570-27-43 05:10:00 Test Item Value Reference Range Interpretation Comments RDW (test code = RDW) 19.2 11.5-14.5 [facility] HospitalBxcxwfuWYSAFCJGDR8453-29-37 05:10:00 Test Item Value Reference Range Interpretation Comments Platelet (test code = Platelet) 72 133-450 [place] 319711-08-09 05:10:00 Test Item Value Reference Range Interpretation Comments MPV (test code = MPV) 9.9 7.4-10.4 [facility] HospitalNwoylpdJHLNHOPDOA6309-47-19 05:10:00 Test Item Value Reference Range Interpretation Comments Segs (test code = Segs) 72.6 45.0-75.0 [facility] HospitalBymllshYFJKUKJFZR1257-37-05 05:10:00 Test Item Value Reference Range Interpretation Comments Lymphocytes (test code = Lymphocytes) 15.9 20.0-40.0 [place] 319711-08-09 05:10:00 Test Item Value Reference Range Interpretation Comments Monocytes (test code = Monocytes) 7.3 2.0-12.0 [place] 319711-08-09 05:10:00 Test Item Value Reference Range Interpretation Comments Eosinophils (test code = 3.4 See_Comment [A utomated message] The Eosinophils) system which ge nerated this result tra nsmitted reference range : <=4.0. The reference r leo was not used to int erpret this result as normal/abnormal . [facility] HospitalSvsbvxhXVSOIDIEFB8493-58-51 05:10:00 Test Item Value Reference Range Interpretation Comments Basophils (test code = 0.8 See_Comment [Aut omated message] The Basophils) system which ge nerated this result tra nsmitted reference range : <=1.0. The reference r leo was not used to int erpret this result as normal/abnormal . [place] 319711-08-09 05:10:00 Test Item Value Reference Range Interpretation Comments Neutrophils # (test code = Neutrophils 1.9 1.5-8.1 #) [place] 319711-08-09 05:10:00 Test Item Value Reference Range Interpretation Comments Lymphocytes # (test code = Lymphocytes 0.4 1.0-5.5 #) [place] 319711-08-09 05:10:00 Test Item Value Reference Range Interpretation Comments Monocytes # (test code 0.2 See_Comment [Aut omated message] The = Monocytes #) system which generated this result tra nsmitted reference range : <=0.8. The reference r leo was not used to int erpret this result as normal/abnormal . [place] 319711-08-09 05:10:00 Test Item Value Reference Range Interpretation Comments Eosinophils # (test code 0.1 See_Comment [A utomated message] The = Eosinophils #) system whic h generated this result tra nsmitted reference range : <=0.5. The reference r leo was not used to int erpret this result as normal/abnormal . [facility]2021-08-09 05:10:00 Test Item Value Reference Range Interpretation Comments Ca Ion WB (test code = Ca Ion WB) 1.10 1.05-1.25 [place] 205801-08-09 05:10:00 Test Item Value Reference Range Interpretation Comments Ca Norm WB (test code = Ca Norm WB) 1.06 1.05-1.25 [place] 120281-08-09 05:10:00 Test Item Value Reference Range Interpretation Comments Glucose Lvl (test code = Glucose Lvl) 69 70-99 [place] 120281-08-09 05:10:00 Test Item Value Reference Range Interpretation Comments BUN (test code = BUN) 29 7-22 [place] 120281-08-09 05:10:00 Test Item Value Reference Range Interpretation Comments Creatinine Lvl (test code = Creatinine 5.14 0.50-1.40 Lvl) [place] 120281-08-09 05:10:00 Test Item Value Reference Range Interpretation Comments Sodium Lvl (test code = Sodium Lvl) 134 135-145 [place] 120281-08-09 05:10:00 Test Item Value Reference Range Interpretation Comments Potassium Lvl (test code = Potassium 5.1 3.5-5.1 Lvl) [place] 120281-08-09 05:10:00 Test Item Value Reference Range Interpretation Comments Chloride Lvl (test code = Chloride Lvl) 98 95-109 [place] 120281-08-09 05:10:00 Test Item Value Reference Range Interpretation Comments CO2 (test code = CO2) 29 24-32 [place] 120281-08-09 05:10:00 Test Item Value Reference Range Interpretation Comments Calcium Lvl (test code = Calcium Lvl) 7.6 8.5-10.5 [place] 120281-08-09 05:10:00 Test Item Value Reference Range Interpretation Comments AGAP (test code = AGAP) 12.1 10.0-20.0 [place] 120281-08-09 05:10:00 Test Item Value Reference Range Interpretation Comments eGFR (test code = eGFR) 10 [place] 120281-08-09 05:10:00 Test Item Value Reference Range Interpretation Comments Magnesium Lvl (test code = Magnesium 2.3 1.8-2.4 Lvl) [place] 120281-08-09 05:10:00 Test Item Value Reference Range Interpretation Comments Phosphorus (test code = Phosphorus) 5.0 2.5-4.5 [place] 319711-08-09 05:10:00 Test Item Value Reference Range Interpretation Comments WBC (test code = WBC) 2.7 3.7-10.4 [place] 319711-08-09 05:10:00 Test Item Value Reference Range Interpretation Comments RBC (test code = RBC) 2.80 4.20-5.40 [place] 319711-08-09 05:10:00 Test Item Value Reference Range Interpretation Comments Hgb (test code = Hgb) 8.5 12.0-16.0 [place] [address]-08-09 05:10:00 Test Item Value Reference Range Interpretation Comments Hct (test code = Hct) 25.7 36.0-48.0 [place] 319711-08-09 05:10:00 Test Item Value Reference Range Interpretation Comments MCV (test code = MCV) 91.7 80.0-98.0 [facility] HospitalEujezfrSKYEYPZGHB1479-48-35 05:10:00 Test Item Value Reference Range Interpretation Comments MCH (test code = MCH) 30.4 pg 27.0-31.0 [place] 319711-08-09 05:10:00 Test Item Value Reference Range Interpretation Comments MCHC (test code = MCHC) 33.1 32.0-36.0 [facility] HospitalDmucmyxEVXAILCTSO4023-77-56 05:10:00 Test Item Value Reference Range Interpretation Comments RDW (test code = RDW) 19.2 11.5-14.5 [facility] HospitalEfuwuxdNVVLUGYTZJ5280-04-19 05:10:00 Test Item Value Reference Range Interpretation Comments Platelet (test code = Platelet) 72 133-450 [place] 319711-08-09 05:10:00 Test Item Value Reference Range Interpretation Comments MPV (test code = MPV) 9.9 7.4-10.4 [facility] HospitalWbhpsxiRKTEABMUMQ1586-39-82 05:10:00 Test Item Value Reference Range Interpretation Comments Segs (test code = Segs) 72.6 45.0-75.0 [facility] HospitalYhpxbktLFCMCSKAND3881-04-09 05:10:00 Test Item Value Reference Range Interpretation Comments Lymphocytes (test code = Lymphocytes) 15.9 20.0-40.0 [place] 319711-08-09 05:10:00 Test Item Value Reference Range Interpretation Comments Monocytes (test code = Monocytes) 7.3 2.0-12.0 [place] 319711-08-09 05:10:00 Test Item Value Reference Range Interpretation Comments Eosinophils (test code = 3.4 See_Comment [A utomated message] The Eosinophils) system which ge nerated this result tra nsmitted reference range : <=4.0. The reference r leo was not used to int erpret this result as normal/abnormal . [facility] HospitalTrxidjoCKWLWVJTPM1664-40-10 05:10:00 Test Item Value Reference Range Interpretation Comments Basophils (test code = 0.8 See_Comment [Aut omated message] The Basophils) system which ge nerated this result tra nsmitted reference range : <=1.0. The reference r leo was not used to int erpret this result as normal/abnormal . [place] 319711-08-09 05:10:00 Test Item Value Reference Range Interpretation Comments Neutrophils # (test code = Neutrophils 1.9 1.5-8.1 #) [place] 319711-08-09 05:10:00 Test Item Value Reference Range Interpretation Comments Lymphocytes # (test code = Lymphocytes 0.4 1.0-5.5 #) [place] 319711-08-09 05:10:00 Test Item Value Reference Range Interpretation Comments Monocytes # (test code 0.2 See_Comment [Aut omated message] The = Monocytes #) system which generated this result tra nsmitted reference range : <=0.8. The reference r leo was not used to int erpret this result as normal/abnormal . [place] 319711-08-09 05:10:00 Test Item Value Reference Range Interpretation Comments Eosinophils # (test code 0.1 See_Comment [A utomated message] The = Eosinophils #) system whic h generated this result tra nsmitted reference range : <=0.5. The reference r leo was not used to int erpret this result as normal/abnormal . [facility]2021-08-09 05:10:00 Test Item Value Reference Range Interpretation Comments Ca Ion WB (test code = Ca Ion WB) 1.10 1.05-1.25 [place] 205801-08-09 05:10:00 Test Item Value Reference Range Interpretation Comments Ca Norm WB (test code = Ca Norm WB) 1.06 1.05-1.25 [place] 120281-08-09 05:10:00 Test Item Value Reference Range Interpretation Comments Glucose Lvl (test code = Glucose Lvl) 69 70-99 [place] 120281-08-09 05:10:00 Test Item Value Reference Range Interpretation Comments BUN (test code = BUN) 29 7-22 [place] 120281-08-09 05:10:00 Test Item Value Reference Range Interpretation Comments Creatinine Lvl (test code = Creatinine 5.14 0.50-1.40 Lvl) [place] 120281-08-09 05:10:00 Test Item Value Reference Range Interpretation Comments Sodium Lvl (test code = Sodium Lvl) 134 135-145 [place] 120281-08-09 05:10:00 Test Item Value Reference Range Interpretation Comments Potassium Lvl (test code = Potassium 5.1 3.5-5.1 Lvl) [place] 120281-08-09 05:10:00 Test Item Value Reference Range Interpretation Comments Chloride Lvl (test code = Chloride Lvl) 98 95-109 [place] 120281-08-09 05:10:00 Test Item Value Reference Range Interpretation Comments CO2 (test code = CO2) 29 24-32 [place] 120281-08-09 05:10:00 Test Item Value Reference Range Interpretation Comments Calcium Lvl (test code = Calcium Lvl) 7.6 8.5-10.5 [place] 120281-08-09 05:10:00 Test Item Value Reference Range Interpretation Comments AGAP (test code = AGAP) 12.1 10.0-20.0 [place] 120281-08-09 05:10:00 Test Item Value Reference Range Interpretation Comments eGFR (test code = eGFR) 10 [place] 120281-08-09 05:10:00 Test Item Value Reference Range Interpretation Comments Magnesium Lvl (test code = Magnesium 2.3 1.8-2.4 Lvl) [place] 120281-08-09 05:10:00 Test Item Value Reference Range Interpretation Comments Phosphorus (test code = Phosphorus) 5.0 2.5-4.5 [place] 319711-08-09 05:10:00 Test Item Value Reference Range Interpretation Comments WBC (test code = WBC) 2.7 3.7-10.4 [place] 319711-08-09 05:10:00 Test Item Value Reference Range Interpretation Comments RBC (test code = RBC) 2.80 4.20-5.40 [place] 319711-08-09 05:10:00 Test Item Value Reference Range Interpretation Comments Hgb (test code = Hgb) 8.5 12.0-16.0 [place] [address]-08-09 05:10:00 Test Item Value Reference Range Interpretation Comments Hct (test code = Hct) 25.7 36.0-48.0 [place] 319711-08-09 05:10:00 Test Item Value Reference Range Interpretation Comments MCV (test code = MCV) 91.7 80.0-98.0 [facility] HospitalSopsdyjLCYQAMULVM3133-19-79 05:10:00 Test Item Value Reference Range Interpretation Comments MCH (test code = MCH) 30.4 pg 27.0-31.0 [place] 319711-08-09 05:10:00 Test Item Value Reference Range Interpretation Comments MCHC (test code = MCHC) 33.1 32.0-36.0 [facility] HospitalBmvbiwtYDWALJKFZT4816-95-99 05:10:00 Test Item Value Reference Range Interpretation Comments RDW (test code = RDW) 19.2 11.5-14.5 [facility] HospitalFkkjiliRLXWWGVIKM9824-13-73 05:10:00 Test Item Value Reference Range Interpretation Comments Platelet (test code = Platelet) 72 133-450 [place] 319711-08-09 05:10:00 Test Item Value Reference Range Interpretation Comments MPV (test code = MPV) 9.9 7.4-10.4 [facility] HospitalDeivwilRKYKLCGCGO0581-16-88 05:10:00 Test Item Value Reference Range Interpretation Comments Segs (test code = Segs) 72.6 45.0-75.0 [facility] HospitalIyecczcMYCEQODCTJ1704-69-68 05:10:00 Test Item Value Reference Range Interpretation Comments Lymphocytes (test code = Lymphocytes) 15.9 20.0-40.0 [place] 319711-08-09 05:10:00 Test Item Value Reference Range Interpretation Comments Monocytes (test code = Monocytes) 7.3 2.0-12.0 [place] 319711-08-09 05:10:00 Test Item Value Reference Range Interpretation Comments Eosinophils (test code = 3.4 See_Comment [A utomated message] The Eosinophils) system which ge nerated this result tra nsmitted reference range : <=4.0. The reference r leo was not used to int erpret this result as normal/abnormal . [facility] HospitalIoafpjtIJBWXWZFKH7705-61-45 05:10:00 Test Item Value Reference Range Interpretation Comments Basophils (test code = 0.8 See_Comment [Aut omated message] The Basophils) system which ge nerated this result tra nsmitted reference range : <=1.0. The reference r leo was not used to int erpret this result as normal/abnormal . [place] 319711-08-09 05:10:00 Test Item Value Reference Range Interpretation Comments Neutrophils # (test code = Neutrophils 1.9 1.5-8.1 #) [place] 319711-08-09 05:10:00 Test Item Value Reference Range Interpretation Comments Lymphocytes # (test code = Lymphocytes 0.4 1.0-5.5 #) [place] 319711-08-09 05:10:00 Test Item Value Reference Range Interpretation Comments Monocytes # (test code 0.2 See_Comment [Aut omated message] The = Monocytes #) system which generated this result tra nsmitted reference range : <=0.8. The reference r leo was not used to int erpret this result as normal/abnormal . [place] 319711-08-09 05:10:00 Test Item Value Reference Range Interpretation Comments Eosinophils # (test code 0.1 See_Comment [A utomated message] The = Eosinophils #) system whic h generated this result tra nsmitted reference range : <=0.5. The reference r leo was not used to int erpret this result as normal/abnormal . [facility]2021-08-09 05:10:00 Test Item Value Reference Range Interpretation Comments Ca Ion WB (test code = Ca Ion WB) 1.10 1.05-1.25 [place] 205801-08-09 05:10:00 Test Item Value Reference Range Interpretation Comments Ca Norm WB (test code = Ca Norm WB) 1.06 1.05-1.25 [place] 120281-08-09 05:10:00 Test Item Value Reference Range Interpretation Comments Glucose Lvl (test code = Glucose Lvl) 69 70-99 [place] 120281-08-09 05:10:00 Test Item Value Reference Range Interpretation Comments BUN (test code = BUN) 29 7-22 [place] 120281-08-09 05:10:00 Test Item Value Reference Range Interpretation Comments Creatinine Lvl (test code = Creatinine 5.14 0.50-1.40 Lvl) [place] 120281-08-09 05:10:00 Test Item Value Reference Range Interpretation Comments Sodium Lvl (test code = Sodium Lvl) 134 135-145 [place] 120281-08-09 05:10:00 Test Item Value Reference Range Interpretation Comments Potassium Lvl (test code = Potassium 5.1 3.5-5.1 Lvl) [place] 120281-08-09 05:10:00 Test Item Value Reference Range Interpretation Comments Chloride Lvl (test code = Chloride Lvl) 98 95-109 [place] 120281-08-09 05:10:00 Test Item Value Reference Range Interpretation Comments CO2 (test code = CO2) 29 24-32 [place] 120281-08-09 05:10:00 Test Item Value Reference Range Interpretation Comments Calcium Lvl (test code = Calcium Lvl) 7.6 8.5-10.5 [place] 120281-08-09 05:10:00 Test Item Value Reference Range Interpretation Comments AGAP (test code = AGAP) 12.1 10.0-20.0 [place] 120281-08-09 05:10:00 Test Item Value Reference Range Interpretation Comments eGFR (test code = eGFR) 10 [place] 120281-08-09 05:10:00 Test Item Value Reference Range Interpretation Comments Magnesium Lvl (test code = Magnesium 2.3 1.8-2.4 Lvl) [place] 120281-08-09 05:10:00 Test Item Value Reference Range Interpretation Comments Phosphorus (test code = Phosphorus) 5.0 2.5-4.5 [place] 319711-08-09 05:10:00 Test Item Value Reference Range Interpretation Comments WBC (test code = WBC) 2.7 3.7-10.4 [place] 319711-08-09 05:10:00 Test Item Value Reference Range Interpretation Comments RBC (test code = RBC) 2.80 4.20-5.40 [place] 319711-08-09 05:10:00 Test Item Value Reference Range Interpretation Comments Hgb (test code = Hgb) 8.5 12.0-16.0 [place] [address]-08-09 05:10:00 Test Item Value Reference Range Interpretation Comments Hct (test code = Hct) 25.7 36.0-48.0 [place] 319711-08-09 05:10:00 Test Item Value Reference Range Interpretation Comments MCV (test code = MCV) 91.7 80.0-98.0 [facility] HospitalVmfeqmaMZUMNAOHID4659-93-85 05:10:00 Test Item Value Reference Range Interpretation Comments MCH (test code = MCH) 30.4 pg 27.0-31.0 [place] 319711-08-09 05:10:00 Test Item Value Reference Range Interpretation Comments MCHC (test code = MCHC) 33.1 32.0-36.0 [facility] HospitalSychixrGDHALJHIWR3821-52-59 05:10:00 Test Item Value Reference Range Interpretation Comments RDW (test code = RDW) 19.2 11.5-14.5 [facility] HospitalGtzsybiJRYBQJXYRS2413-89-35 05:10:00 Test Item Value Reference Range Interpretation Comments Platelet (test code = Platelet) 72 133-450 [place] 319711-08-09 05:10:00 Test Item Value Reference Range Interpretation Comments MPV (test code = MPV) 9.9 7.4-10.4 [facility] HospitalTtklfsqSLWEXOPLTL8030-14-69 05:10:00 Test Item Value Reference Range Interpretation Comments Segs (test code = Segs) 72.6 45.0-75.0 [facility] HospitalMlehzioRAQZWQHPQO2888-67-00 05:10:00 Test Item Value Reference Range Interpretation Comments Lymphocytes (test code = Lymphocytes) 15.9 20.0-40.0 [place] 319711-08-09 05:10:00 Test Item Value Reference Range Interpretation Comments Monocytes (test code = Monocytes) 7.3 2.0-12.0 [place] 319711-08-09 05:10:00 Test Item Value Reference Range Interpretation Comments Eosinophils (test code = 3.4 See_Comment [A utomated message] The Eosinophils) system which ge nerated this result tra nsmitted reference range : <=4.0. The reference r leo was not used to int erpret this result as normal/abnormal . [facility]OL[facility]HW5284[facility]98-68 05:10:00 Test Item Value Reference Range Interpretation Comments Basophils (test code = 0.8 See_Comment [Aut omated message] The Basophils) system which ge nerated this result tra nsmitted reference range : <=1.0. The reference r leo was not used to int erpret this result as normal/abnormal . [place] 319711-08-09 05:10:00 Test Item Value Reference Range Interpretation Comments Neutrophils # (test code = Neutrophils 1.9 1.5-8.1 #) [place] 319711-08-09 05:10:00 Test Item Value Reference Range Interpretation Comments Lymphocytes # (test code = Lymphocytes 0.4 1.0-5.5 #) [place] 319711-08-09 05:10:00 Test Item Value Reference Range Interpretation Comments Monocytes # (test code 0.2 See_Comment [Aut omated message] The = Monocytes #) system which generated this result tra nsmitted reference range : <=0.8. The reference r leo was not used to int erpret this result as normal/abnormal . [place] 319711-08-09 05:10:00 Test Item Value Reference Range Interpretation Comments Eosinophils # (test code 0.1 See_Comment [A utomated message] The = Eosinophils #) system whic h generated this result tra nsmitted reference range : <=0.5. The reference r leo was not used to int erpret this result as normal/abnormal . [facility]2021-08-09 05:10:00 Test Item Value Reference Range Interpretation Comments Ca Ion WB (test code = Ca Ion WB) 1.10 1.05-1.25 [place] 205801-08-09 05:10:00 Test Item Value Reference Range Interpretation Comments Ca Norm WB (test code = Ca Norm WB) 1.06 1.05-1.25 [place] 120281-08-09 05:10:00 Test Item Value Reference Range Interpretation Comments Glucose Lvl (test code = Glucose Lvl) 69 70-99 [place] 120281-08-09 05:10:00 Test Item Value Reference Range Interpretation Comments BUN (test code = BUN) 29 7-22 [place] 120281-08-09 05:10:00 Test Item Value Reference Range Interpretation Comments Creatinine Lvl (test code = Creatinine 5.14 0.50-1.40 Lvl) [place] 120281-08-09 05:10:00 Test Item Value Reference Range Interpretation Comments Sodium Lvl (test code = Sodium Lvl) 134 135-145 [place] 120281-08-09 05:10:00 Test Item Value Reference Range Interpretation Comments Potassium Lvl (test code = Potassium 5.1 3.5-5.1 Lvl) [place] 120281-08-09 05:10:00 Test Item Value Reference Range Interpretation Comments Chloride Lvl (test code = Chloride Lvl) 98 95-109 [place] 120281-08-09 05:10:00 Test Item Value Reference Range Interpretation Comments CO2 (test code = CO2) 29 24-32 [place] 120281-08-09 05:10:00 Test Item Value Reference Range Interpretation Comments Calcium Lvl (test code = Calcium Lvl) 7.6 8.5-10.5 [place] 120281-08-09 05:10:00 Test Item Value Reference Range Interpretation Comments AGAP (test code = AGAP) 12.1 10.0-20.0 [place] 120281-08-09 05:10:00 Test Item Value Reference Range Interpretation Comments eGFR (test code = eGFR) 10 [place] 120281-08-09 05:10:00 Test Item Value Reference Range Interpretation Comments Magnesium Lvl (test code = Magnesium 2.3 1.8-2.4 Lvl) [place] 120281-08-09 05:10:00 Test Item Value Reference Range Interpretation Comments Phosphorus (test code = Phosphorus) 5.0 2.5-4.5 [place] 319711-08-09 05:10:00 Test Item Value Reference Range Interpretation Comments WBC (test code = WBC) 2.7 3.7-10.4 [place] 319711-08-09 05:10:00 Test Item Value Reference Range Interpretation Comments RBC (test code = RBC) 2.80 4.20-5.40 [place] 319711-08-09 05:10:00 Test Item Value Reference Range Interpretation Comments Hgb (test code = Hgb) 8.5 12.0-16.0 [place] [address]-08-09 05:10:00 Test Item Value Reference Range Interpretation Comments Hct (test code = Hct) 25.7 36.0-48.0 [place] 319711-08-09 05:10:00 Test Item Value Reference Range Interpretation Comments MCV (test code = MCV) 91.7 80.0-98.0 [facility] HospitalUnyfaopGEBKFCNXRP8685-78-87 05:10:00 Test Item Value Reference Range Interpretation Comments MCH (test code = MCH) 30.4 pg 27.0-31.0 [place] 319711-08-09 05:10:00 Test Item Value Reference Range Interpretation Comments MCHC (test code = MCHC) 33.1 32.0-36.0 [facility] HospitalGmyduqgFIRLNFHNLD6350-89-88 05:10:00 Test Item Value Reference Range Interpretation Comments RDW (test code = RDW) 19.2 11.5-14.5 [facility] HospitalBhavgjsDTDZOMMILJ7863-13-37 05:10:00 Test Item Value Reference Range Interpretation Comments Platelet (test code = Platelet) 72 133-450 [place] 319711-08-09 05:10:00 Test Item Value Reference Range Interpretation Comments MPV (test code = MPV) 9.9 7.4-10.4 [facility] HospitalTosqonxOTMPUFTBRV6155-97-83 05:10:00 Test Item Value Reference Range Interpretation Comments Segs (test code = Segs) 72.6 45.0-75.0 [facility] HospitalHkxdfezFEXMDQTVVA2997-60-48 05:10:00 Test Item Value Reference Range Interpretation Comments Lymphocytes (test code = Lymphocytes) 15.9 20.0-40.0 [place] 319711-08-09 05:10:00 Test Item Value Reference Range Interpretation Comments Monocytes (test code = Monocytes) 7.3 2.0-12.0 [place] 319711-08-09 05:10:00 Test Item Value Reference Range Interpretation Comments Eosinophils (test code = 3.4 See_Comment [A utomated message] The Eosinophils) system which ge nerated this result tra nsmitted reference range : <=4.0. The reference r leo was not used to int erpret this result as normal/abnormal . [facility] HospitalQgzxqxyINFZXTAMJG7372-05-34 05:10:00 Test Item Value Reference Range Interpretation Comments Basophils (test code = 0.8 See_Comment [Aut omated message] The Basophils) system which ge nerated this result tra nsmitted reference range : <=1.0. The reference r leo was not used to int erpret this result as normal/abnormal . [facility] HospitalJqrnhwlZMWKSJVHSU3924-70-35 05:10:00 Test Item Value Reference Range Interpretation Comments Neutrophils # (test code = Neutrophils 1.9 1.5-8.1 #) [facility] HospitalRsxlkcnAARMKIXCDC4286-12-15 05:10:00 Test Item Value Reference Range Interpretation Comments Lymphocytes # (test code = Lymphocytes 0.4 1.0-5.5 #) [facility] HospitalKvtjvgiWDNDAVVQZH1638-14-71 05:10:00 Test Item Value Reference Range Interpretation Comments Monocytes # (test code 0.2 See_Comment [Aut omated message] The = Monocytes #) system which generated this result tra nsmitted reference range : <=0.8. The reference r leo was not used to int erpret this result as normal/abnormal . [facility] HospitalDdhkkxmOEHUBHNWJY8352-38-11 05:10:00 Test Item Value Reference Range Interpretation Comments Eosinophils # (test code 0.1 See_Comment [A utomated message] The = Eosinophils #) system whic h generated this result tra nsmitted reference range : <=0.5. The reference r leo was not used to int erpret this result as normal/abnormal . [facility]2021-08-09 05:10:00 Test Item Value Reference Range Interpretation Comments Ca Ion WB (test code = Ca Ion WB) 1.10 1.05-1.25 [facility]2021-08-09 05:10:00 Test Item Value Reference Range Interpretation Comments Ca Norm WB (test code = Ca Norm WB) 1.06 1.05-1.25 [facility]2021-08-08 18:36:00 Test Item Value Reference Range Interpretation Comments C difficile DNA (test Negative (01/26/21 1:36 code = C difficile DNA) PM) [facility]2021-08-08 18:36:00 Test Item Value Reference Range Interpretation Comments C difficile DNA (test Negative (01/26/21 1:36 code = C difficile DNA) PM) [facility]2021-08-08 18:36:00 Test Item Value Reference Range Interpretation Comments C difficile DNA (test Negative (01/26/21 1:36 code = C difficile DNA) PM) [facility]2021-08-08 18:36:00 Test Item Value Reference Range Interpretation Comments C difficile DNA (test Negative (01/26/21 1:36 code = C difficile DNA) PM) [facility]2021-08-08 18:36:00 Test Item Value Reference Range Interpretation Comments C difficile DNA (test Negative (01/26/21 1:36 code = C difficile DNA) PM) [facility]2021-08-08 07:33:00 Test Item Value Reference Range Interpretation Comments Ca Ion WB (test code = Ca Ion WB) 1.12 1.05-1.25 [facility]2021-08-08 07:33:00 Test Item Value Reference Range Interpretation Comments Ca Norm WB (test code = Ca Norm WB) 1.07 1.05-1.25 [facility]2021-08-08 07:33:00 Test Item Value Reference Range Interpretation Comments Ca Ion WB (test code = Ca Ion WB) 1.12 1.05-1.25 [facility]2021-08-08 07:33:00 Test Item Value Reference Range Interpretation Comments Ca Norm WB (test code = Ca Norm WB) 1.07 1.05-1.25 [facility]2021-08-08 07:33:00 Test Item Value Reference Range Interpretation Comments Ca Ion WB (test code = Ca Ion WB) 1.12 1.05-1.25 [facility]2021-08-08 07:33:00 Test Item Value Reference Range Interpretation Comments Ca Norm WB (test code = Ca Norm WB) 1.07 1.05-1.25 [facility] LORISTEPDCUW8698-05-97 07:33:00 Test Item Value Reference Range Interpretation Comments Ca Ion WB (test code = Ca Ion WB) 1.12 1.05-1.25 [facility]2021-08-08 07:33:00 Test Item Value Reference Range Interpretation Comments Ca Norm WB (test code = Ca Norm WB) 1.07 1.05-1.25 [facility]2021-08-08 07:33:00 Test Item Value Reference Range Interpretation Comments Ca Ion WB (test code = Ca Ion WB) 1.12 1.05-1.25 [facility] CenterPARATHYROID IDONPHZ7056-67-69 07:33:00 Test Item Value Reference Range Interpretation Comments Ca Norm WB (test code = Ca Norm WB) 1.07 1.05-1.25 [place] 120281-08-08 07:30:00 Test Item Value Reference Range Interpretation Comments Glucose Lvl (test code = Glucose Lvl) 65 70-99 [place] 120281-08-08 07:30:00 Test Item Value Reference Range Interpretation Comments BUN (test code = BUN) 21 7-22 [place] 120281-08-08 07:30:00 Test Item Value Reference Range Interpretation Comments Creatinine Lvl (test code = Creatinine 4.18 0.50-1.40 Lvl) [place] 120281-08-08 07:30:00 Test Item Value Reference Range Interpretation Comments Sodium Lvl (test code = Sodium Lvl) 136 135-145 [place] 120281-08-08 07:30:00 Test Item Value Reference Range Interpretation Comments Potassium Lvl (test code = Potassium 4.5 3.5-5.1 Lvl) [place] 120281-08-08 07:30:00 Test Item Value Reference Range Interpretation Comments Chloride Lvl (test code = Chloride Lvl) 99 95-109 [place] 120281-08-08 07:30:00 Test Item Value Reference Range Interpretation Comments CO2 (test code = CO2) 31 24-32 [place] 120281-08-08 07:30:00 Test Item Value Reference Range Interpretation Comments AGAP (test code = AGAP) 10.5 10.0-20.0 [place] 120281-08-08 07:30:00 Test Item Value Reference Range Interpretation Comments Calcium Lvl (test code = Calcium Lvl) 7.9 8.5-10.5 [place] 120281-08-08 07:30:00 Test Item Value Reference Range Interpretation Comments eGFR (test code = eGFR) 13 [place] 120281-08-08 07:30:00 Test Item Value Reference Range Interpretation Comments Magnesium Lvl (test code = Magnesium 2.2 1.8-2.4 Lvl) [place] 120281-08-08 07:30:00 Test Item Value Reference Range Interpretation Comments Phosphorus (test code = Phosphorus) 4.4 2.5-4.5 [facility] HospitalTfvtabkBVIWJNXZHR9557-09-58 07:30:00 Test Item Value Reference Range Interpretation Comments WBC (test code = WBC) 2.3 3.7-10.4 [facility] HospitalOyvwpiqWCJWLCXYXV1933-87-10 07:30:00 Test Item Value Reference Range Interpretation Comments RBC (test code = RBC) 2.88 4.20-5.40 [facility] HospitalEphmqqlFAAZXFEEJR9436-20-21 07:30:00 Test Item Value Reference Range Interpretation Comments Hgb (test code = Hgb) 8.6 12.0-16.0 [facility] HospitalLhlaghuJLJALTWZEZ5351-03-45 07:30:00 Test Item Value Reference Range Interpretation Comments Hct (test code = Hct) 26.6 36.0-48.0 [facility] HospitalNtgfkcaWLDLAUBUQI4649-10-74 07:30:00 Test Item Value Reference Range Interpretation Comments MCV (test code = MCV) 92.2 80.0-98.0 [facility] HospitalKbeldbxSTOEBDFFMW6819-99-40 07:30:00 Test Item Value Reference Range Interpretation Comments MCH (test code = MCH) 29.8 pg 27.0-31.0 [facility] HospitalJoedbyvJFRXHBFBFZ0960-79-49 07:30:00 Test Item Value Reference Range Interpretation Comments MCHC (test code = MCHC) 32.4 32.0-36.0 [facility] HospitalLikrfanIZESBPMTIX8874-20-54 07:30:00 Test Item Value Reference Range Interpretation Comments RDW (test code = RDW) 19.7 11.5-14.5 [facility] HospitalXqcrkxtFBWNVWMQAL9087-73-78 07:30:00 Test Item Value Reference Range Interpretation Comments Platelet (test code = Platelet) 83 133-450 [facility] HospitalNnlvxlgLYNIACSYMD9355-35-04 07:30:00 Test Item Value Reference Range Interpretation Comments MPV (test code = MPV) 10.2 7.4-10.4 [facility] HospitalSkfmoeuVBXEEVFRPU7630-42-09 07:30:00 Test Item Value Reference Range Interpretation Comments Segs (test code = Segs) 64.0 45.0-75.0 [facility] HospitalSqupfglTJZOLSXZLL0433-93-85 07:30:00 Test Item Value Reference Range Interpretation Comments Lymphocytes (test code = Lymphocytes) 24.1 20.0-40.0 [place] 319711-08-08 07:30:00 Test Item Value Reference Range Interpretation Comments Monocytes (test code = Monocytes) 7.0 2.0-12.0 [facility] HospitalUopmylzEJJYSESFXK2845-33-68 07:30:00 Test Item Value Reference Range Interpretation Comments Eosinophils (test code = 3.7 See_Comment [A utomated message] The Eosinophils) system which ge nerated this result tra nsmitted reference range : <=4.0. The reference r leo was not used to int erpret this result as normal/abnormal . [facility] HospitalApbtfqqTFYDAGZJTC2494-23-51 07:30:00 Test Item Value Reference Range Interpretation Comments Basophils (test code = 1.2 See_Comment [Aut omated message] The Basophils) system which ge nerated this result tra nsmitted reference range : <=1.0. The reference r leo was not used to int erpret this result as normal/abnormal . [facility] HospitalLvkchaiWMRSAKRYQB9161-32-51 07:30:00 Test Item Value Reference Range Interpretation Comments Neutrophils # (test code = Neutrophils 1.5 1.5-8.1 #) [facility] HospitalAblenjjXAQKURVCGQ8275-32-76 07:30:00 Test Item Value Reference Range Interpretation Comments Lymphocytes # (test code = Lymphocytes 0.6 1.0-5.5 #) [facility] HospitalGfqmubxVQGFKKXPDW0484-02-89 07:30:00 Test Item Value Reference Range Interpretation Comments Monocytes # (test code 0.2 See_Comment [Aut omated message] The = Monocytes #) system which generated this result tra nsmitted reference range : <=0.8. The reference r leo was not used to int erpret this result as normal/abnormal . [place] 319711-08-08 07:30:00 Test Item Value Reference Range Interpretation Comments Eosinophils # (test code 0.1 See_Comment [A utomated message] The = Eosinophils #) system whic h generated this result tra nsmitted reference range : <=0.5. The reference r leo was not used to int erpret this result as normal/abnormal . [facility]2021-08-08 07:30:00 Test Item Value Reference Range Interpretation Comments Glucose Lvl (test code = Glucose Lvl) 65 70-99 [place] 120281-08-08 07:30:00 Test Item Value Reference Range Interpretation Comments BUN (test code = BUN) 21 7-22 [place] 120281-08-08 07:30:00 Test Item Value Reference Range Interpretation Comments Creatinine Lvl (test code = Creatinine 4.18 0.50-1.40 Lvl) [place] 120281-08-08 07:30:00 Test Item Value Reference Range Interpretation Comments Sodium Lvl (test code = Sodium Lvl) 136 135-145 [place] 120281-08-08 07:30:00 Test Item Value Reference Range Interpretation Comments Potassium Lvl (test code = Potassium 4.5 3.5-5.1 Lvl) [place] 120281-08-08 07:30:00 Test Item Value Reference Range Interpretation Comments Chloride Lvl (test code = Chloride Lvl) 99 95-109 [place] 120281-08-08 07:30:00 Test Item Value Reference Range Interpretation Comments CO2 (test code = CO2) 31 24-32 [place] 120281-08-08 07:30:00 Test Item Value Reference Range Interpretation Comments AGAP (test code = AGAP) 10.5 10.0-20.0 [place] 120281-08-08 07:30:00 Test Item Value Reference Range Interpretation Comments Calcium Lvl (test code = Calcium Lvl) 7.9 8.5-10.5 [place] 120281-08-08 07:30:00 Test Item Value Reference Range Interpretation Comments eGFR (test code = eGFR) 13 [place] 120281-08-08 07:30:00 Test Item Value Reference Range Interpretation Comments Magnesium Lvl (test code = Magnesium 2.2 1.8-2.4 Lvl) [place] 120281-08-08 07:30:00 Test Item Value Reference Range Interpretation Comments Phosphorus (test code = Phosphorus) 4.4 2.5-4.5 [place] 319711-08-08 07:30:00 Test Item Value Reference Range Interpretation Comments WBC (test code = WBC) 2.3 3.7-10.4 [place] 319711-08-08 07:30:00 Test Item Value Reference Range Interpretation Comments RBC (test code = RBC) 2.88 4.20-5.40 [facility] HospitalOmvhgyvHQUKIIAXQT8175-28-60 07:30:00 Test Item Value Reference Range Interpretation Comments Hgb (test code = Hgb) 8.6 12.0-16.0 [facility] HospitalKriiscwVDAHMLHUTX0413-56-03 07:30:00 Test Item Value Reference Range Interpretation Comments Hct (test code = Hct) 26.6 36.0-48.0 [facility] HospitalOlssvdyYWHPFLAKPF6831-59-91 07:30:00 Test Item Value Reference Range Interpretation Comments MCV (test code = MCV) 92.2 80.0-98.0 [facility] HospitalMdxwlzoICDWAYYSYC8958-20-78 07:30:00 Test Item Value Reference Range Interpretation Comments MCH (test code = MCH) 29.8 pg 27.0-31.0 [facility] HospitalYsvliqrYRONQGYDQU6084-47-41 07:30:00 Test Item Value Reference Range Interpretation Comments MCHC (test code = MCHC) 32.4 32.0-36.0 [facility] HospitalSqikhkaBQJVYQHVDW3249-88-64 07:30:00 Test Item Value Reference Range Interpretation Comments RDW (test code = RDW) 19.7 11.5-14.5 [facility] HospitalZlultxmEIFEXGOYLT8881-10-61 07:30:00 Test Item Value Reference Range Interpretation Comments Platelet (test code = Platelet) 83 133-450 [facility] HospitalSjmmrytCSIUHXRGDW0672-03-28 07:30:00 Test Item Value Reference Range Interpretation Comments MPV (test code = MPV) 10.2 7.4-10.4 [facility] HospitalHfggergOVBVAASNCO3971-95-96 07:30:00 Test Item Value Reference Range Interpretation Comments Segs (test code = Segs) 64.0 45.0-75.0 [facility] HospitalQgdjhcxBZWEZULDIG2929-71-81 07:30:00 Test Item Value Reference Range Interpretation Comments Lymphocytes (test code = Lymphocytes) 24.1 20.0-40.0 [facility] HospitalDgtckwjKBLCCSKTLB3947-85-01 07:30:00 Test Item Value Reference Range Interpretation Comments Monocytes (test code = Monocytes) 7.0 2.0-12.0 [place] 319711-08-08 07:30:00 Test Item Value Reference Range Interpretation Comments Eosinophils (test code = 3.7 See_Comment [A utomated message] The Eosinophils) system which ge nerated this result tra nsmitted reference range : <=4.0. The reference r leo was not used to int erpret this result as normal/abnormal . [place] 319711-08-08 07:30:00 Test Item Value Reference Range Interpretation Comments Basophils (test code = 1.2 See_Comment [Aut omated message] The Basophils) system which ge nerated this result tra nsmitted reference range : <=1.0. The reference r leo was not used to int erpret this result as normal/abnormal . [place] 319711-08-08 07:30:00 Test Item Value Reference Range Interpretation Comments Neutrophils # (test code = Neutrophils 1.5 1.5-8.1 #) [place] 319711-08-08 07:30:00 Test Item Value Reference Range Interpretation Comments Lymphocytes # (test code = Lymphocytes 0.6 1.0-5.5 #) [place] 319711-08-08 07:30:00 Test Item Value Reference Range Interpretation Comments Monocytes # (test code 0.2 See_Comment [Aut omated message] The = Monocytes #) system which generated this result tra nsmitted reference range : <=0.8. The reference r leo was not used to int erpret this result as normal/abnormal . [place] 319711-08-08 07:30:00 Test Item Value Reference Range Interpretation Comments Eosinophils # (test code 0.1 See_Comment [A utomated message] The = Eosinophils #) system whic h generated this result tra nsmitted reference range : <=0.5. The reference r leo was not used to int erpret this result as normal/abnormal . [facility] CenterCir[facility] ZLKIO6050-55-16 07:30:00 Test Item Value Reference Range Interpretation Comments Glucose Lvl (test code = Glucose Lvl) 65 70-99 [facility] UOECQ8992-90-97 07:30:00 Test Item Value Reference Range Interpretation Comments BUN (test code = BUN) 21 7-22 [place] [address]-08-08 07:30:00 Test Item Value Reference Range Interpretation Comments Creatinine Lvl (test code = Creatinine 4.18 0.50-1.40 Lvl) [place] 120281-08-08 07:30:00 Test Item Value Reference Range Interpretation Comments Sodium Lvl (test code = Sodium Lvl) 136 135-145 [place] 120281-08-08 07:30:00 Test Item Value Reference Range Interpretation Comments Potassium Lvl (test code = Potassium 4.5 3.5-5.1 Lvl) [place] 120281-08-08 07:30:00 Test Item Value Reference Range Interpretation Comments Chloride Lvl (test code = Chloride Lvl) 99 95-109 [place] 120281-08-08 07:30:00 Test Item Value Reference Range Interpretation Comments CO2 (test code = CO2) 31 24-32 [place] 120281-08-08 07:30:00 Test Item Value Reference Range Interpretation Comments AGAP (test code = AGAP) 10.5 10.0-20.0 [place] 120281-08-08 07:30:00 Test Item Value Reference Range Interpretation Comments Calcium Lvl (test code = Calcium Lvl) 7.9 8.5-10.5 [place] 120281-08-08 07:30:00 Test Item Value Reference Range Interpretation Comments eGFR (test code = eGFR) 13 [place] 120281-08-08 07:30:00 Test Item Value Reference Range Interpretation Comments Magnesium Lvl (test code = Magnesium 2.2 1.8-2.4 Lvl) [place] 120281-08-08 07:30:00 Test Item Value Reference Range Interpretation Comments Phosphorus (test code = Phosphorus) 4.4 2.5-4.5 [place] 319711-08-08 07:30:00 Test Item Value Reference Range Interpretation Comments WBC (test code = WBC) 2.3 3.7-10.4 [place] [address]-08-08 07:30:00 Test Item Value Reference Range Interpretation Comments RBC (test code = RBC) 2.88 4.20-5.40 [place] 319711-08-08 07:30:00 Test Item Value Reference Range Interpretation Comments Hgb (test code = Hgb) 8.6 12.0-16.0 [place] [address]-08-08 07:30:00 Test Item Value Reference Range Interpretation Comments Hct (test code = Hct) 26.6 36.0-48.0 [place] 319711-08-08 07:30:00 Test Item Value Reference Range Interpretation Comments MCV (test code = MCV) 92.2 80.0-98.0 [place] 319711-08-08 07:30:00 Test Item Value Reference Range Interpretation Comments MCH (test code = MCH) 29.8 pg 27.0-31.0 [place] 319711-08-08 07:30:00 Test Item Value Reference Range Interpretation Comments MCHC (test code = MCHC) 32.4 32.0-36.0 [facility] HospitalQgzsepkQRVATICZLR5971-14-82 07:30:00 Test Item Value Reference Range Interpretation Comments RDW (test code = RDW) 19.7 11.5-14.5 [place] 319711-08-08 07:30:00 Test Item Value Reference Range Interpretation Comments Platelet (test code = Platelet) 83 133-450 [facility] HospitalUtytcseBSVJHIEPHE3285-54-33 07:30:00 Test Item Value Reference Range Interpretation Comments MPV (test code = MPV) 10.2 7.4-10.4 [facility] HospitalQllwpvlRUELIAQUYD1691-62-23 07:30:00 Test Item Value Reference Range Interpretation Comments Segs (test code = Segs) 64.0 45.0-75.0 [facility] HospitalDkmsldbDYJITCVKLN6547-49-73 07:30:00 Test Item Value Reference Range Interpretation Comments Lymphocytes (test code = Lymphocytes) 24.1 20.0-40.0 [place] 319711-08-08 07:30:00 Test Item Value Reference Range Interpretation Comments Monocytes (test code = Monocytes) 7.0 2.0-12.0 [place] 319711-08-08 07:30:00 Test Item Value Reference Range Interpretation Comments Eosinophils (test code = 3.7 See_Comment [A utomated message] The Eosinophils) system which ge nerated this result tra nsmitted reference range : <=4.0. The reference r leo was not used to int erpret this result as normal/abnormal . [place] 319711-08-08 07:30:00 Test Item Value Reference Range Interpretation Comments Basophils (test code = 1.2 See_Comment [Aut omated message] The Basophils) system which ge nerated this result tra nsmitted reference range : <=1.0. The reference r leo was not used to int erpret this result as normal/abnormal . [place] 319711-08-08 07:30:00 Test Item Value Reference Range Interpretation Comments Neutrophils # (test code = Neutrophils 1.5 1.5-8.1 #) [facility]75[facility]97 07:30:00 Test Item Value Reference Range Interpretation Comments Lymphocytes # (test code = Lymphocytes 0.6 1.0-5.5 #) [place] 319711-08-08 07:30:00 Test Item Value Reference Range Interpretation Comments Monocytes # (test code 0.2 See_Comment [Aut omated message] The = Monocytes #) system which generated this result tra nsmitted reference range : <=0.8. The reference r leo was not used to int erpret this result as normal/abnormal . [place] 319711-08-08 07:30:00 Test Item Value Reference Range Interpretation Comments Eosinophils # (test code 0.1 See_Comment [A utomated message] The = Eosinophils #) system whic h generated this result tra nsmitted reference range : <=0.5. The reference r leo was not used to int erpret this result as normal/abnormal . [place] 120281-08-08 07:30:00 Test Item Value Reference Range Interpretation Comments Glucose Lvl (test code = Glucose Lvl) 65 70-99 [place] 120281-08-08 07:30:00 Test Item Value Reference Range Interpretation Comments BUN (test code = BUN) 21 7-22 [place] 120281-08-08 07:30:00 Test Item Value Reference Range Interpretation Comments Creatinine Lvl (test code = Creatinine 4.18 0.50-1.40 Lvl) [place] 120281-08-08 07:30:00 Test Item Value Reference Range Interpretation Comments Sodium Lvl (test code = Sodium Lvl) 136 135-145 [place] 120281-08-08 07:30:00 Test Item Value Reference Range Interpretation Comments Potassium Lvl (test code = Potassium 4.5 3.5-5.1 Lvl) [place] 120281-08-08 07:30:00 Test Item Value Reference Range Interpretation Comments Chloride Lvl (test code = Chloride Lvl) 99 95-109 [place] 120281-08-08 07:30:00 Test Item Value Reference Range Interpretation Comments CO2 (test code = CO2) 31 24-32 [place] 120281-08-08 07:30:00 Test Item Value Reference Range Interpretation Comments AGAP (test code = AGAP) 10.5 10.0-20.0 [place] 120281-08-08 07:30:00 Test Item Value Reference Range Interpretation Comments Calcium Lvl (test code = Calcium Lvl) 7.9 8.5-10.5 [place] 120281-08-08 07:30:00 Test Item Value Reference Range Interpretation Comments eGFR (test code = eGFR) 13 [place] 120281-08-08 07:30:00 Test Item Value Reference Range Interpretation Comments Magnesium Lvl (test code = Magnesium 2.2 1.8-2.4 Lvl) [place] 120281-08-08 07:30:00 Test Item Value Reference Range Interpretation Comments Phosphorus (test code = Phosphorus) 4.4 2.5-4.5 [place] 319711-08-08 07:30:00 Test Item Value Reference Range Interpretation Comments WBC (test code = WBC) 2.3 3.7-10.4 [place] 319711-08-08 07:30:00 Test Item Value Reference Range Interpretation Comments RBC (test code = RBC) 2.88 4.20-5.40 [place] 319711-08-08 07:30:00 Test Item Value Reference Range Interpretation Comments Hgb (test code = Hgb) 8.6 12.0-16.0 [place] 319711-08-08 07:30:00 Test Item Value Reference Range Interpretation Comments Hct (test code = Hct) 26.6 36.0-48.0 [place] 319711-08-08 07:30:00 Test Item Value Reference Range Interpretation Comments MCV (test code = MCV) 92.2 80.0-98.0 [place] 319711-08-08 07:30:00 Test Item Value Reference Range Interpretation Comments MCH (test code = MCH) 29.8 pg 27.0-31.0 [place] 319711-08-08 07:30:00 Test Item Value Reference Range Interpretation Comments MCHC (test code = MCHC) 32.4 32.0-36.0 [facility]FdntwzaZTQLABERPM1544-80-39 07:30:00 Test Item Value Reference Range Interpretation Comments RDW (test code = RDW) 19.7 11.5-14.5 [facility] HospitalRbgogkbRITKHTEHGL6187-59-54 07:30:00 Test Item Value Reference Range Interpretation Comments Platelet (test code = Platelet) 83 133-450 [facility] HospitalGzdyfscBNBHGZERTH0307-30-85 07:30:00 Test Item Value Reference Range Interpretation Comments MPV (test code = MPV) 10.2 7.4-10.4 [place] 319711-08-08 07:30:00 Test Item Value Reference Range Interpretation Comments Segs (test code = Segs) 64.0 45.0-75.0 [place] 319711-08-08 07:30:00 Test Item Value Reference Range Interpretation Comments Lymphocytes (test code = Lymphocytes) 24.1 20.0-40.0 [facility] HospitalAgjqagqXDHXPPYVFK6952-03-54 07:30:00 Test Item Value Reference Range Interpretation Comments Monocytes (test code = Monocytes) 7.0 2.0-12.0 [facility] HospitalSanbtllOYKABUZZUK7681-46-76 07:30:00 Test Item Value Reference Range Interpretation Comments Eosinophils (test code = 3.7 See_Comment [A utomated message] The Eosinophils) system which ge nerated this result tra nsmitted reference range : <=4.0. The reference r leo was not used to int erpret this result as normal/abnormal . [place] 319711-08-08 07:30:00 Test Item Value Reference Range Interpretation Comments Basophils (test code = 1.2 See_Comment [Aut omated message] The Basophils) system which ge nerated this result tra nsmitted reference range : <=1.0. The reference r leo was not used to int erpret this result as normal/abnormal . [facility] HospitalIghpqjaBKNNGVNOQB8570-42-28 07:30:00 Test Item Value Reference Range Interpretation Comments Neutrophils # (test code = Neutrophils 1.5 1.5-8.1 #) [facility] HospitalFgdfpueANQALMIARO1256-32-37 07:30:00 Test Item Value Reference Range Interpretation Comments Lymphocytes # (test code = Lymphocytes 0.6 1.0-5.5 #) [place] 319711-08-08 07:30:00 Test Item Value Reference Range Interpretation Comments Monocytes # (test code 0.2 See_Comment [Aut omated message] The = Monocytes #) system which generated this result tra nsmitted reference range : <=0.8. The reference r leo was not used to int erpret this result as normal/abnormal . [place] 319711-08-08 07:30:00 Test Item Value Reference Range Interpretation Comments Eosinophils # (test code 0.1 See_Comment [A utomated message] The = Eosinophils #) system whic h generated this result tra nsmitted reference range : <=0.5. The reference r leo was not used to int erpret this result as normal/abnormal . [facility] [id number] 07:30:00 Test Item Value Reference Range Interpretation Comments Glucose Lvl (test code = Glucose Lvl) 65 70-99 [facility] [id number] 07:30:00 Test Item Value Reference Range Interpretation Comments BUN (test code = BUN) 21 7-22 [facility] [id number] 07:30:00 Test Item Value Reference Range Interpretation Comments Creatinine Lvl (test code = Creatinine 4.18 0.50-1.40 Lvl) [place] 120281-08-08 07:30:00 Test Item Value Reference Range Interpretation Comments Sodium Lvl (test code = Sodium Lvl) 136 135-145 [facility] [id number] 07:30:00 Test Item Value Reference Range Interpretation Comments Potassium Lvl (test code = Potassium 4.5 3.5-5.1 Lvl) [facility] [id number] 07:30:00 Test Item Value Reference Range Interpretation Comments Chloride Lvl (test code = Chloride Lvl) 99 95-109 [place] 120281-08-08 07:30:00 Test Item Value Reference Range Interpretation Comments CO2 (test code = CO2) 31 24-32 [place] 120281-08-08 07:30:00 Test Item Value Reference Range Interpretation Comments AGAP (test code = AGAP) 10.5 10.0-20.0 [place] 120281-08-08 07:30:00 Test Item Value Reference Range Interpretation Comments Calcium Lvl (test code = Calcium Lvl) 7.9 8.5-10.5 [place] [address]-08-08 07:30:00 Test Item Value Reference Range Interpretation Comments eGFR (test code = eGFR) 13 [place] [address]-08-08 07:30:00 Test Item Value Reference Range Interpretation Comments Magnesium Lvl (test code = Magnesium 2.2 1.8-2.4 Lvl) [place] 120281-08-08 07:30:00 Test Item Value Reference Range Interpretation Comments Phosphorus (test code = Phosphorus) 4.4 2.5-4.5 [place] 319711-08-08 07:30:00 Test Item Value Reference Range Interpretation Comments WBC (test code = WBC) 2.3 3.7-10.4 [place] 319711-08-08 07:30:00 Test Item Value Reference Range Interpretation Comments RBC (test code = RBC) 2.88 4.20-5.40 [place] 319711-08-08 07:30:00 Test Item Value Reference Range Interpretation Comments Hgb (test code = Hgb) 8.6 12.0-16.0 [place] 319711-08-08 07:30:00 Test Item Value Reference Range Interpretation Comments Hct (test code = Hct) 26.6 36.0-48.0 [place] 319711-08-08 07:30:00 Test Item Value Reference Range Interpretation Comments MCV (test code = MCV) 92.2 80.0-98.0 [place] 319711-08-08 07:30:00 Test Item Value Reference Range Interpretation Comments MCH (test code = MCH) 29.8 pg 27.0-31.0 [place] [address]-08-08 07:30:00 Test Item Value Reference Range Interpretation Comments MCHC (test code = MCHC) 32.4 32.0-36.0 [place] [address]-08-08 07:30:00 Test Item Value Reference Range Interpretation Comments RDW (test code = RDW) 19.7 11.5-14.5 [place] 319711-08-08 07:30:00 Test Item Value Reference Range Interpretation Comments Platelet (test code = Platelet) 83 133-450 [facility] HospitalNixeqdrUNSIEGYXFV8080-68-05 07:30:00 Test Item Value Reference Range Interpretation Comments MPV (test code = MPV) 10.2 7.4-10.4 [place] 319711-08-08 07:30:00 Test Item Value Reference Range Interpretation Comments Segs (test code = Segs) 64.0 45.0-75.0 [place] 319711-08-08 07:30:00 Test Item Value Reference Range Interpretation Comments Lymphocytes (test code = Lymphocytes) 24.1 20.0-40.0 [place] 319711-08-08 07:30:00 Test Item Value Reference Range Interpretation Comments Monocytes (test code = Monocytes) 7.0 2.0-12.0 [place] 319711-08-08 07:30:00 Test Item Value Reference Range Interpretation Comments Eosinophils (test code = 3.7 See_Comment [A utomated message] The Eosinophils) system which ge nerated this result tra nsmitted reference range : <=4.0. The reference r leo was not used to int erpret this result as normal/abnormal . [place] 319711-08-08 07:30:00 Test Item Value Reference Range Interpretation Comments Basophils (test code = 1.2 See_Comment [Aut omated message] The Basophils) system which ge nerated this result tra nsmitted reference range : <=1.0. The reference r leo was not used to int erpret this result as normal/abnormal . [facility] HospitalQlakdfeAMYTZMVQAA1725-14-02 07:30:00 Test Item Value Reference Range Interpretation Comments Neutrophils # (test code = Neutrophils 1.5 1.5-8.1 #) [facility] HospitalRntonwqXHBCGVLKBA0334-18-92 07:30:00 Test Item Value Reference Range Interpretation Comments Lymphocytes # (test code = Lymphocytes 0.6 1.0-5.5 #) [place] 319711-08-08 07:30:00 Test Item Value Reference Range Interpretation Comments Monocytes # (test code 0.2 See_Comment [Aut omated message] The = Monocytes #) system which generated this result tra nsmitted reference range : <=0.8. The reference r leo was not used to int erpret this result as normal/abnormal . [place] 319711-08-08 07:30:00 Test Item Value Reference Range Interpretation Comments Eosinophils # (test code 0.1 See_Comment [A utomated message] The = Eosinophils #) system whic h generated this result tra nsmitted reference range : <=0.5. The reference r loe was not used to int erpret this result as normal/abnormal . [place] 120281-08-07 09:32:00 Test Item Value Reference Range Interpretation Comments Glucose Lvl (test code = Glucose Lvl) 59 70-99 [place] 120281-08-07 09:32:00 Test Item Value Reference Range Interpretation Comments BUN (test code = BUN) 11 7-22 [place] 120281-08-07 09:32:00 Test Item Value Reference Range Interpretation Comments Creatinine Lvl (test code = Creatinine 2.75 0.50-1.40 Lvl) [place] 120281-08-07 09:32:00 Test Item Value Reference Range Interpretation Comments Sodium Lvl (test code = Sodium Lvl) 138 135-145 [place] 120281-08-07 09:32:00 Test Item Value Reference Range Interpretation Comments Potassium Lvl (test code = Potassium 4.1 3.5-5.1 Lvl) [place] 120281-08-07 09:32:00 Test Item Value Reference Range Interpretation Comments Chloride Lvl (test code = Chloride Lvl) 104 95-109 [place] 120281-08-07 09:32:00 Test Item Value Reference Range Interpretation Comments CO2 (test code = CO2) 29 24-32 [place] 120281-08-07 09:32:00 Test Item Value Reference Range Interpretation Comments Calcium Lvl (test code = Calcium Lvl) 8.3 8.5-10.5 [place] 120281-08-07 09:32:00 Test Item Value Reference Range Interpretation Comments AGAP (test code = AGAP) 9.1 10.0-20.0 [place] [address]-08-07 09:32:00 Test Item Value Reference Range Interpretation Comments eGFR (test code = eGFR) 21 [place] 120281-08-07 09:32:00 Test Item Value Reference Range Interpretation Comments Magnesium Lvl (test code = Magnesium 2.2 1.8-2.4 Lvl) [facility]20[facility]-08-07 09:32:00 Test Item Value Reference Range Interpretation Comments Phosphorus (test code = Phosphorus) 3.9 2.5-4.5 [place] 319711-08-07 09:32:00 Test Item Value Reference Range Interpretation Comments WBC (test code = WBC) 2.3 3.7-10.4 [place] 319711-08-07 09:32:00 Test Item Value Reference Range Interpretation Comments RBC (test code = RBC) 2.78 4.20-5.40 [place] 319711-08-07 09:32:00 Test Item Value Reference Range Interpretation Comments Hgb (test code = Hgb) 8.4 12.0-16.0 [place] 319711-08-07 09:32:00 Test Item Value Reference Range Interpretation Comments Hct (test code = Hct) 25.2 36.0-48.0 [place] 319711-08-07 09:32:00 Test Item Value Reference Range Interpretation Comments MCV (test code = MCV) 90.5 80.0-98.0 [place] 319711-08-07 09:32:00 Test Item Value Reference Range Interpretation Comments MCH (test code = MCH) 30.4 pg 27.0-31.0 [place] 319711-08-07 09:32:00 Test Item Value Reference Range Interpretation Comments MCHC (test code = MCHC) 33.5 32.0-36.0 [place] 319711-08-07 09:32:00 Test Item Value Reference Range Interpretation Comments RDW (test code = RDW) 19.0 11.5-14.5 [place] 319711-08-07 09:32:00 Test Item Value Reference Range Interpretation Comments Platelet (test code = Platelet) 87 133-450 [facility] HospitalVfsikvpZIRDSFVORH9438-70-25 09:32:00 Test Item Value Reference Range Interpretation Comments MPV (test code = MPV) 10.0 7.4-10.4 [facility]2021-08-07 09:32:00 Test Item Value Reference Range Interpretation Comments Glucose Lvl (test code = Glucose Lvl) 59 70-99 [place] 120281-08-07 09:32:00 Test Item Value Reference Range Interpretation Comments BUN (test code = BUN) 11 7-22 [place] 120281-08-07 09:32:00 Test Item Value Reference Range Interpretation Comments Creatinine Lvl (test code = Creatinine 2.75 0.50-1.40 Lvl) [place] 120281-08-07 09:32:00 Test Item Value Reference Range Interpretation Comments Sodium Lvl (test code = Sodium Lvl) 138 135-145 [place] 120281-08-07 09:32:00 Test Item Value Reference Range Interpretation Comments Potassium Lvl (test code = Potassium 4.1 3.5-5.1 Lvl) [place] 120281-08-07 09:32:00 Test Item Value Reference Range Interpretation Comments Chloride Lvl (test code = Chloride Lvl) 104 95-109 [place] 120281-08-07 09:32:00 Test Item Value Reference Range Interpretation Comments CO2 (test code = CO2) 29 24-32 [place] 120281-08-07 09:32:00 Test Item Value Reference Range Interpretation Comments Calcium Lvl (test code = Calcium Lvl) 8.3 8.5-10.5 [place] 120281-08-07 09:32:00 Test Item Value Reference Range Interpretation Comments AGAP (test code = AGAP) 9.1 10.0-20.0 [place] 120281-08-07 09:32:00 Test Item Value Reference Range Interpretation Comments eGFR (test code = eGFR) 21 [place] 120281-08-07 09:32:00 Test Item Value Reference Range Interpretation Comments Magnesium Lvl (test code = Magnesium 2.2 1.8-2.4 Lvl) [place] 120281-08-07 09:32:00 Test Item Value Reference Range Interpretation Comments Phosphorus (test code = Phosphorus) 3.9 2.5-4.5 [place] 319711-08-07 09:32:00 Test Item Value Reference Range Interpretation Comments WBC (test code = WBC) 2.3 3.7-10.4 [place] 319711-08-07 09:32:00 Test Item Value Reference Range Interpretation Comments RBC (test code = RBC) 2.78 4.20-5.40 [place] [address]-08-07 09:32:00 Test Item Value Reference Range Interpretation Comments Hgb (test code = Hgb) 8.4 12.0-16.0 [place] [address]-08-07 09:32:00 Test Item Value Reference Range Interpretation Comments Hct (test code = Hct) 25.2 36.0-48.0 [place] 319711-08-07 09:32:00 Test Item Value Reference Range Interpretation Comments MCV (test code = MCV) 90.5 80.0-98.0 [place] [address]-08-07 09:32:00 Test Item Value Reference Range Interpretation Comments MCH (test code = MCH) 30.4 pg 27.0-31.0 [place] [address]-08-07 09:32:00 Test Item Value Reference Range Interpretation Comments MCHC (test code = MCHC) 33.5 32.0-36.0 [place] 319711-08-07 09:32:00 Test Item Value Reference Range Interpretation Comments RDW (test code = RDW) 19.0 11.5-14.5 [place] [address]-08-07 09:32:00 Test Item Value Reference Range Interpretation Comments Platelet (test code = Platelet) 87 133-450 [place] 319711-08-07 09:32:00 Test Item Value Reference Range Interpretation Comments MPV (test code = MPV) 10.0 7.4-10.4 [place] 120281-08-07 09:32:00 Test Item Value Reference Range Interpretation Comments Glucose Lvl (test code = Glucose Lvl) 59 70-99 [place] 120281-08-07 09:32:00 Test Item Value Reference Range Interpretation Comments BUN (test code = BUN) 11 7-22 [place] 120281-08-07 09:32:00 Test Item Value Reference Range Interpretation Comments Creatinine Lvl (test code = Creatinine 2.75 0.50-1.40 Lvl) [place] 120281-08-07 09:32:00 Test Item Value Reference Range Interpretation Comments Sodium Lvl (test code = Sodium Lvl) 138 135-145 [place] 120281-08-07 09:32:00 Test Item Value Reference Range Interpretation Comments Potassium Lvl (test code = Potassium 4.1 3.5-5.1 Lvl) [place] 120281-08-07 09:32:00 Test Item Value Reference Range Interpretation Comments Chloride Lvl (test code = Chloride Lvl) 104 95-109 [place] 120281-08-07 09:32:00 Test Item Value Reference Range Interpretation Comments CO2 (test code = CO2) 29 24-32 [place] 120281-08-07 09:32:00 Test Item Value Reference Range Interpretation Comments Calcium Lvl (test code = Calcium Lvl) 8.3 8.5-10.5 [place] 120281-08-07 09:32:00 Test Item Value Reference Range Interpretation Comments AGAP (test code = AGAP) 9.1 10.0-20.0 [place] 120281-08-07 09:32:00 Test Item Value Reference Range Interpretation Comments eGFR (test code = eGFR) 21 [place] 120281-08-07 09:32:00 Test Item Value Reference Range Interpretation Comments Magnesium Lvl (test code = Magnesium 2.2 1.8-2.4 Lvl) [place] 120281-08-07 09:32:00 Test Item Value Reference Range Interpretation Comments Phosphorus (test code = Phosphorus) 3.9 2.5-4.5 [place] 319711-08-07 09:32:00 Test Item Value Reference Range Interpretation Comments WBC (test code = WBC) 2.3 3.7-10.4 [place] [address]-08-07 09:32:00 Test Item Value Reference Range Interpretation Comments RBC (test code = RBC) 2.78 4.20-5.40 [place] [address]-08-07 09:32:00 Test Item Value Reference Range Interpretation Comments Hgb (test code = Hgb) 8.4 12.0-16.0 [place] [address]-08-07 09:32:00 Test Item Value Reference Range Interpretation Comments Hct (test code = Hct) 25.2 36.0-48.0 [place] [address]-08-07 09:32:00 Test Item Value Reference Range Interpretation Comments MCV (test code = MCV) 90.5 80.0-98.0 [place] 319711-08-07 09:32:00 Test Item Value Reference Range Interpretation Comments MCH (test code = MCH) 30.4 pg 27.0-31.0 [place] 319711-08-07 09:32:00 Test Item Value Reference Range Interpretation Comments MCHC (test code = MCHC) 33.5 32.0-36.0 [place] 319711-08-07 09:32:00 Test Item Value Reference Range Interpretation Comments RDW (test code = RDW) 19.0 11.5-14.5 [place] 319711-08-07 09:32:00 Test Item Value Reference Range Interpretation Comments Platelet (test code = Platelet) 87 133-450 [place] 319711-08-07 09:32:00 Test Item Value Reference Range Interpretation Comments MPV (test code = MPV) 10.0 7.4-10.4 [place] 120281-08-07 09:32:00 Test Item Value Reference Range Interpretation Comments Glucose Lvl (test code = Glucose Lvl) 59 70-99 [place] 120281-08-07 09:32:00 Test Item Value Reference Range Interpretation Comments BUN (test code = BUN) 11 7-22 [place] 120281-08-07 09:32:00 Test Item Value Reference Range Interpretation Comments Creatinine Lvl (test code = Creatinine 2.75 0.50-1.40 Lvl) [place] 120281-08-07 09:32:00 Test Item Value Reference Range Interpretation Comments Sodium Lvl (test code = Sodium Lvl) 138 135-145 [place] 120281-08-07 09:32:00 Test Item Value Reference Range Interpretation Comments Potassium Lvl (test code = Potassium 4.1 3.5-5.1 Lvl) [place] 120281-08-07 09:32:00 Test Item Value Reference Range Interpretation Comments Chloride Lvl (test code = Chloride Lvl) 104 95-109 [place] 120281-08-07 09:32:00 Test Item Value Reference Range Interpretation Comments CO2 (test code = CO2) 29 24-32 [place] 120281-08-07 09:32:00 Test Item Value Reference Range Interpretation Comments Calcium Lvl (test code = Calcium Lvl) 8.3 8.5-10.5 [place] 120281-08-07 09:32:00 Test Item Value Reference Range Interpretation Comments AGAP (test code = AGAP) 9.1 10.0-20.0 [place] 120281-08-07 09:32:00 Test Item Value Reference Range Interpretation Comments eGFR (test code = eGFR) 21 [place] 120281-08-07 09:32:00 Test Item Value Reference Range Interpretation Comments Magnesium Lvl (test code = Magnesium 2.2 1.8-2.4 Lvl) [place] 120281-08-07 09:32:00 Test Item Value Reference Range Interpretation Comments Phosphorus (test code = Phosphorus) 3.9 2.5-4.5 [place] 319711-08-07 09:32:00 Test Item Value Reference Range Interpretation Comments WBC (test code = WBC) 2.3 3.7-10.4 [place] 319711-08-07 09:32:00 Test Item Value Reference Range Interpretation Comments RBC (test code = RBC) 2.78 4.20-5.40 [place] 319711-08-07 09:32:00 Test Item Value Reference Range Interpretation Comments Hgb (test code = Hgb) 8.4 12.0-16.0 [place] 319711-08-07 09:32:00 Test Item Value Reference Range Interpretation Comments Hct (test code = Hct) 25.2 36.0-48.0 [place] 319711-08-07 09:32:00 Test Item Value Reference Range Interpretation Comments MCV (test code = MCV) 90.5 80.0-98.0 [place] 319711-08-07 09:32:00 Test Item Value Reference Range Interpretation Comments MCH (test code = MCH) 30.4 pg 27.0-31.0 [place] 319711-08-07 09:32:00 Test Item Value Reference Range Interpretation Comments MCHC (test code = MCHC) 33.5 32.0-36.0 [place] [address]-08-07 09:32:00 Test Item Value Reference Range Interpretation Comments RDW (test code = RDW) 19.0 11.5-14.5 [place] 319711-08-07 09:32:00 Test Item Value Reference Range Interpretation Comments Platelet (test code = Platelet) 87 133-450 [place] 319711-08-07 09:32:00 Test Item Value Reference Range Interpretation Comments MPV (test code = MPV) 10.0 7.4-10.4 [place] 120281-08-07 09:32:00 Test Item Value Reference Range Interpretation Comments Glucose Lvl (test code = Glucose Lvl) 59 70-99 [place] 120281-08-07 09:32:00 Test Item Value Reference Range Interpretation Comments BUN (test code = BUN) 11 7-22 [place] 120281-08-07 09:32:00 Test Item Value Reference Range Interpretation Comments Creatinine Lvl (test code = Creatinine 2.75 0.50-1.40 Lvl) [place] 120281-08-07 09:32:00 Test Item Value Reference Range Interpretation Comments Sodium Lvl (test code = Sodium Lvl) 138 135-145 [place] 120281-08-07 09:32:00 Test Item Value Reference Range Interpretation Comments Potassium Lvl (test code = Potassium 4.1 3.5-5.1 Lvl) [place] 120281-08-07 09:32:00 Test Item Value Reference Range Interpretation Comments Chloride Lvl (test code = Chloride Lvl) 104 95-109 [place] 120281-08-07 09:32:00 Test Item Value Reference Range Interpretation Comments CO2 (test code = CO2) 29 24-32 [place] 120281-08-07 09:32:00 Test Item Value Reference Range Interpretation Comments Calcium Lvl (test code = Calcium Lvl) 8.3 8.5-10.5 [place] 120281-08-07 09:32:00 Test Item Value Reference Range Interpretation Comments AGAP (test code = AGAP) 9.1 10.0-20.0 [place] 120281-08-07 09:32:00 Test Item Value Reference Range Interpretation Comments eGFR (test code = eGFR) 21 [place] 120281-08-07 09:32:00 Test Item Value Reference Range Interpretation Comments Magnesium Lvl (test code = Magnesium 2.2 1.8-2.4 Lvl) [facility]2021-08-07 09:32:00 Test Item Value Reference Range Interpretation Comments Phosphorus (test code = Phosphorus) 3.9 2.5-4.5 [facility]MlpyhvsLOGBCIAMER4351-67-51 09:32:00 Test Item Value Reference Range Interpretation Comments WBC (test code = WBC) 2.3 3.7-10.4 [facility] HospitalHjzcfenMQVSVBEQZY8422-54-86 09:32:00 Test Item Value Reference Range Interpretation Comments RBC (test code = RBC) 2.78 4.20-5.40 [facility] HospitalZfqazjfWECKUNEPPG4310-88-02 09:32:00 Test Item Value Reference Range Interpretation Comments Hgb (test code = Hgb) 8.4 12.0-16.0 [facility] HospitalPghcrwyQADIXIOACN2701-68-56 09:32:00 Test Item Value Reference Range Interpretation Comments Hct (test code = Hct) 25.2 36.0-48.0 [facility] HospitalYkuzzfzJPWNOCLVPP1288-40-44 09:32:00 Test Item Value Reference Range Interpretation Comments MCV (test code = MCV) 90.5 80.0-98.0 [facility] HospitalDdvqpkzQTLUHUGPTO1823-99-81 09:32:00 Test Item Value Reference Range Interpretation Comments MCH (test code = MCH) 30.4 pg 27.0-31.0 [facility] HospitalVwjnerhHAJKOQHOVR8184-99-25 09:32:00 Test Item Value Reference Range Interpretation Comments MCHC (test code = MCHC) 33.5 32.0-36.0 [facility] HospitalSlizxgvKYBLMXODVW6583-82-80 09:32:00 Test Item Value Reference Range Interpretation Comments RDW (test code = RDW) 19.0 11.5-14.5 [facility] HospitalDrswbthISWYDWLBHO6217-42-89 09:32:00 Test Item Value Reference Range Interpretation Comments Platelet (test code = Platelet) 87 133-450 [facility] HospitalMauoljgBLWNTOMFDQ5918-96-85 09:32:00 Test Item Value Reference Range Interpretation Comments MPV (test code = MPV) 10.0 7.4-10.4 [facility] JNPHXRI2895-15-03 05:33:00 Test Item Value Reference Range Interpretation Comments ABO/Rh (test code = ABO/Rh) B POS [facility] DEBPEBX4679-36-57 05:33:00 Test Item Value Reference Range Interpretation Comments Antibody Scrn (test Negative (01/24/21 12:33 code = Antibody Scrn) AM) [facility] HospitalKuxipreXDOQJTGRQQ2936-62-62 05:33:00 Test Item Value Reference Range Interpretation Comments Segs (test code = Segs) 60.2 45.0-75.0 [facility] HospitalWrpnrpkDKPTNNBQWP0994-56-34 05:33:00 Test Item Value Reference Range Interpretation Comments Lymphocytes (test code = Lymphocytes) 28.6 20.0-40.0 [facility] HospitalAynblidYSSPKEIACD5484-70-05 05:33:00 Test Item Value Reference Range Interpretation Comments Monocytes (test code = Monocytes) 5.8 2.0-12.0 [facility] HospitalTrxfcioGJXDFYDEUY4373-62-45 05:33:00 Test Item Value Reference Range Interpretation Comments Eosinophils (test code = 4.2 See_Comment [A utomated message] The Eosinophils) system which ge nerated this result tra nsmitted reference range : <=4.0. The reference r leo was not used to int erpret this result as normal/abnormal . [facility] HospitalPtltvcbDZDPLUGDID6380-98-99 05:33:00 Test Item Value Reference Range Interpretation Comments Basophils (test code = 1.2 See_Comment [Aut omated message] The Basophils) system which ge nerated this result tra nsmitted reference range : <=1.0. The reference r leo was not used to int erpret this result as normal/abnormal . [facility] HospitalTfineslWEVVFLPITN2602-62-19 05:33:00 Test Item Value Reference Range Interpretation Comments Neutrophils # (test code = Neutrophils 2.2 1.5-8.1 #) [facility] HospitalWgesaopNUAYEKOWYQ2788-84-63 05:33:00 Test Item Value Reference Range Interpretation Comments Lymphocytes # (test code = Lymphocytes 1.1 1.0-5.5 #) [facility] HospitalYrsbzfcQHGXKAVCVI1491-43-33 05:33:00 Test Item Value Reference Range Interpretation Comments Monocytes # (test code 0.2 See_Comment [Aut omated message] The = Monocytes #) system which generated this result tra nsmitted reference range : <=0.8. The reference r leo was not used to int erpret this result as normal/abnormal . [facility] HospitalTbizkjyUFFSZYTLFL2252-17-08 05:33:00 Test Item Value Reference Range Interpretation Comments Eosinophils # (test code 0.2 See_Comment [A utomated message] The = Eosinophils #) system whic h generated this result tra nsmitted reference range : <=0.5. The reference r leo was not used to int erpret this result as normal/abnormal . [facility] YEYEQRF0813-84-44 05:33:00 Test Item Value Reference Range Interpretation Comments ABO/Rh (test code = ABO/Rh) B POS [facility] XSRDJZH1477-35-11 05:33:00 Test Item Value Reference Range Interpretation Comments Antibody Scrn (test Negative (01/24/21 12:33 code = Antibody Scrn) AM) [facility] HospitalQkllsthAPBTHGGLBR3183-50-54 05:33:00 Test Item Value Reference Range Interpretation Comments Segs (test code = Segs) 60.2 45.0-75.0 [facility] HospitalBqnckkpFYDHVRNHZR0012-57-22 05:33:00 Test Item Value Reference Range Interpretation Comments Lymphocytes (test code = Lymphocytes) 28.6 20.0-40.0 [facility] HospitalPgcojfaOGOSHTXNQZ0252-03-59 05:33:00 Test Item Value Reference Range Interpretation Comments Monocytes (test code = Monocytes) 5.8 2.0-12.0 [facility] HospitalZqnubyoDCBLOGBVQA5704-07-08 05:33:00 Test Item Value Reference Range Interpretation Comments Eosinophils (test code = 4.2 See_Comment [A utomated message] The Eosinophils) system which ge nerated this result tra nsmitted reference range : <=4.0. The reference r leo was not used to int erpret this result as normal/abnormal . [facility] HospitalXfqliaeITYMNYOUNL4271-23-67 05:33:00 Test Item Value Reference Range Interpretation Comments Basophils (test code = 1.2 See_Comment [Aut omated message] The Basophils) system which ge nerated this result tra nsmitted reference range : <=1.0. The reference r leo was not used to int erpret this result as normal/abnormal . [facility] HospitalLfqjastZCPDWBITBP6657-37-38 05:33:00 Test Item Value Reference Range Interpretation Comments Neutrophils # (test code = Neutrophils 2.2 1.5-8.1 #) [place] 319711-08-06 05:33:00 Test Item Value Reference Range Interpretation Comments Lymphocytes # (test code = Lymphocytes 1.1 1.0-5.5 #) [facility] HospitalFxmwkilQLWMMZFKCJ3447-37-41 05:33:00 Test Item Value Reference Range Interpretation Comments Monocytes # (test code 0.2 See_Comment [Aut omated message] The = Monocytes #) system which generated this result tra nsmitted reference range : <=0.8. The reference r leo was not used to int erpret this result as normal/abnormal . [facility] HospitalItxsxxsSRRRONIQVR9488-40-29 05:33:00 Test Item Value Reference Range Interpretation Comments Eosinophils # (test code 0.2 See_Comment [A utomated message] The = Eosinophils #) system whic h generated this result tra nsmitted reference range : <=0.5. The reference r leo was not used to int erpret this result as normal/abnormal . [facility]2021-08-06 05:33:00 Test Item Value Reference Range Interpretation Comments ABO/Rh (test code = ABO/Rh) B POS [facility]2021-08-06 05:33:00 Test Item Value Reference Range Interpretation Comments Antibody Scrn (test Negative (01/24/21 12:33 code = Antibody Scrn) AM) [facility] HospitalHjcxzamCRZBYUCDDF0751-21-30 05:33:00 Test Item Value Reference Range Interpretation Comments Segs (test code = Segs) 60.2 45.0-75.0 [facility] HospitalDkpncebJWBQQINIAW9906-26-30 05:33:00 Test Item Value Reference Range Interpretation Comments Lymphocytes (test code = Lymphocytes) 28.6 20.0-40.0 [facility] HospitalNxatuzcTMMVAFUIIJ9629-03-58 05:33:00 Test Item Value Reference Range Interpretation Comments Monocytes (test code = Monocytes) 5.8 2.0-12.0 [facility] HospitalWrapuxrITGDVNHVRA6511-73-63 05:33:00 Test Item Value Reference Range Interpretation Comments Eosinophils (test code = 4.2 See_Comment [A utomated message] The Eosinophils) system which ge nerated this result tra nsmitted reference range : <=4.0. The reference r leo was not used to int erpret this result as normal/abnormal . [facility] HospitalHksncwfVTEMBRXZDJ4269-41-69 05:33:00 Test Item Value Reference Range Interpretation Comments Basophils (test code = 1.2 See_Comment [Aut omated message] The Basophils) system which ge nerated this result tra nsmitted reference range : <=1.0. The reference r leo was not used to int erpret this result as normal/abnormal . [facility] HospitalIcflkowQDSQPYHEBT6922-70-59 05:33:00 Test Item Value Reference Range Interpretation Comments Neutrophils # (test code = Neutrophils 2.2 1.5-8.1 #) [facility] HospitalZerlltzPSRKHBZTGO8963-12-10 05:33:00 Test Item Value Reference Range Interpretation Comments Lymphocytes # (test code = Lymphocytes 1.1 1.0-5.5 #) [facility] HospitalZaqrnixXSPJLTNOYW5374-04-20 05:33:00 Test Item Value Reference Range Interpretation Comments Monocytes # (test code 0.2 See_Comment [Aut omated message] The = Monocytes #) system which generated this result tra nsmitted reference range : <=0.8. The reference r leo was not used to int erpret this result as normal/abnormal . [facility] HospitalQjwhdnkQFNELHWGVY3831-50-99 05:33:00 Test Item Value Reference Range Interpretation Comments Eosinophils # (test code 0.2 See_Comment [A utomated message] The = Eosinophils #) system whic h generated this result tra nsmitted reference range : <=0.5. The reference r leo was not used to int erpret this result as normal/abnormal . [facility] UBWNCSV4441-58-23 05:33:00 Test Item Value Reference Range Interpretation Comments ABO/Rh (test code = ABO/Rh) B POS [facility] WACYVIY9209-09-00 05:33:00 Test Item Value Reference Range Interpretation Comments Antibody Scrn (test Negative (01/24/21 12:33 code = Antibody Scrn) AM) [facility] HospitalUgkefxbUQDSWCJCIY3511-92-52 05:33:00 Test Item Value Reference Range Interpretation Comments Segs (test code = Segs) 60.2 45.0-75.0 [facility] HospitalCpzrvsqFBSAMDYLJP8110-27-07 05:33:00 Test Item Value Reference Range Interpretation Comments Lymphocytes (test code = Lymphocytes) 28.6 20.0-40.0 [facility] HospitalGnqtpegIQEGYYPAGW4805-72-58 05:33:00 Test Item Value Reference Range Interpretation Comments Monocytes (test code = Monocytes) 5.8 2.0-12.0 [facility] HospitalEcraaeeLBGCGNGDJR6148-49-88 05:33:00 Test Item Value Reference Range Interpretation Comments Eosinophils (test code = 4.2 See_Comment [A utomated message] The Eosinophils) system which ge nerated this result tra nsmitted reference range : <=4.0. The reference r leo was not used to int erpret this result as normal/abnormal . [facility] HospitalAqgappoTVWTWHXYTZ6902-60-82 05:33:00 Test Item Value Reference Range Interpretation Comments Basophils (test code = 1.2 See_Comment [Aut omated message] The Basophils) system which ge nerated this result tra nsmitted reference range : <=1.0. The reference r leo was not used to int erpret this result as normal/abnormal . [facility] HospitalJtxroylGVRBXCHKSG9234-94-81 05:33:00 Test Item Value Reference Range Interpretation Comments Neutrophils # (test code = Neutrophils 2.2 1.5-8.1 #) [facility] HospitalYjkbfpqDJWORJEBNE1553-65-91 05:33:00 Test Item Value Reference Range Interpretation Comments Lymphocytes # (test code = Lymphocytes 1.1 1.0-5.5 #) [facility] HospitalXgzuubrXVPDYKGQJF7065-09-11 05:33:00 Test Item Value Reference Range Interpretation Comments Monocytes # (test code 0.2 See_Comment [Aut omated message] The = Monocytes #) system which generated this result tra nsmitted reference range : <=0.8. The reference r loe was not used to int erpret this result as normal/abnormal . [facility] HospitalOvfwyyqLIRJSPVTUS3481-93-36 05:33:00 Test Item Value Reference Range Interpretation Comments Eosinophils # (test code 0.2 See_Comment [A utomated message] The = Eosinophils #) system whic h generated this result tra nsmitted reference range : <=0.5. The reference r leo was not used to int erpret this result as normal/abnormal . [facility] CenterRewardsForce MRKFUVA4389-15-64 05:33:00 Test Item Value Reference Range Interpretation Comments ABO/Rh (test code = ABO/Rh) B POS [facility] FWDKWHU2394-56-49 05:33:00 Test Item Value Reference Range Interpretation Comments Antibody Scrn (test Negative (01/24/21 12:33 code = Antibody Scrn) AM) [facility] HospitalDxpeywbTRQZDUCMFQ7040-60-90 05:33:00 Test Item Value Reference Range Interpretation Comments Segs (test code = Segs) 60.2 45.0-75.0 [facility] HospitalTuwcjmaSPZXPJSLNT9172-33-19 05:33:00 Test Item Value Reference Range Interpretation Comments Lymphocytes (test code = Lymphocytes) 28.6 20.0-40.0 [facility] HospitalNwdmtssLCPLTVRYSC3142-24-63 05:33:00 Test Item Value Reference Range Interpretation Comments Monocytes (test code = Monocytes) 5.8 2.0-12.0 [facility] HospitalLnfxhhgOVCXZCHUCP8054-24-14 05:33:00 Test Item Value Reference Range Interpretation Comments Eosinophils (test code = 4.2 See_Comment [A utomated message] The Eosinophils) system which ge nerated this result tra nsmitted reference range : <=4.0. The reference r leo was not used to int erpret this result as normal/abnormal . [facility] HospitalCjgmjldOLJPWHCAKE2751-84-66 05:33:00 Test Item Value Reference Range Interpretation Comments Basophils (test code = 1.2 See_Comment [Aut omated message] The Basophils) system which ge nerated this result tra nsmitted reference range : <=1.0. The reference r leo was not used to int erpret this result as normal/abnormal . [facility] HospitalWkgmmjvTWTGJDBCKT4585-66-24 05:33:00 Test Item Value Reference Range Interpretation Comments Neutrophils # (test code = Neutrophils 2.2 1.5-8.1 #) [facility] HospitalOnmpllrJYFCNURAIM4085-17-28 05:33:00 Test Item Value Reference Range Interpretation Comments Lymphocytes # (test code = Lymphocytes 1.1 1.0-5.5 #) [place] 319711-08-06 05:33:00 Test Item Value Reference Range Interpretation Comments Monocytes # (test code 0.2 See_Comment [Aut omated message] The = Monocytes #) system which generated this result tra nsmitted reference range : <=0.8. The reference r leo was not used to int erpret this result as normal/abnormal . [facility] HospitalDxtigdrLPCAPZPENY1987-43-48 05:33:00 Test Item Value Reference Range Interpretation Comments Eosinophils # (test code 0.2 See_Comment [A utomated message] The = Eosinophils #) system whic h generated this result tra nsmitted reference range : <=0.5. The reference r leo was not used to int erpret this result as normal/abnormal . [facility] HospitalOxnrgipNWTQCYRXLL7187-56-40 05:53:00 Test Item Value Reference Range Interpretation Comments PT (test code = PT) 14.4 s 12.0-14.7 [facility] HospitalCeywhfsMBXVTAJIWV8012-93-22 05:53:00 Test Item Value Reference Range Interpretation Comments INR (test code = INR) 1.13 1 0.85-1.17 [place] 319711-08-05 05:53:00 Test Item Value Reference Range Interpretation Comments Fibrinogen Lvl (test code = Fibrinogen 319 230-510 Lvl) [facility] HospitalYqtavgsKZWPWFRCEJ3435-05-04 05:53:00 Test Item Value Reference Range Interpretation Comments Thrombin Time (test code = Thrombin 15.9 s 15.0-21.2 Time) [facility] HospitalExcsgdhTODYGGILDT1616-84-26 05:53:00 Test Item Value Reference Range Interpretation Comments PTT (test code = PTT) 47.0 s 22.9-35.8 [facility] HospitalSzuzyxeBIJRIQKAKK1312-02-41 05:53:00 Test Item Value Reference Range Interpretation Comments D-Dimer (test code = D-Dimer) 0.91 [place] 319711-08-05 05:53:00 Test Item Value Reference Range Interpretation Comments Basophils # (test code 0.1 See_Comment [Aut omated message] The = Basophils #) system which generated this result tra nsmitted reference range : <=0.2. The reference r leo was not used to int erpret this result as normal/abnormal . [facility] CenterPARATHYROID BCGOSBQ9514-00-74 05:53:00 Test Item Value Reference Range Interpretation Comments Ca Ion WB (test code = Ca Ion WB) 1.24 1.05-1.25 [facility]ATH[facility] HHEVCZY6710-45-84 05:53:00 Test Item Value Reference Range Interpretation Comments Ca Norm WB (test code = Ca Norm WB) 1.25 1.05-1.25 [facility] HospitalKvwdlkgBKJKJIXYAQ1145-57-23 05:53:00 Test Item Value Reference Range Interpretation Comments PT (test code = PT) 14.4 s 12.0-14.7 [facility] HospitalSejkvleFHJUWJLNDS7077-44-24 05:53:00 Test Item Value Reference Range Interpretation Comments INR (test code = INR) 1.13 1 0.85-1.17 [place] 319711-08-05 05:53:00 Test Item Value Reference Range Interpretation Comments Fibrinogen Lvl (test code = Fibrinogen 319 230-510 Lvl) [facility] HospitalIhbklloVBMBOCAEOD6711-40-72 05:53:00 Test Item Value Reference Range Interpretation Comments Thrombin Time (test code = Thrombin 15.9 s 15.0-21.2 Time) [facility] HospitalSzgtiboHUQTHLYCEJ3581-10-95 05:53:00 Test Item Value Reference Range Interpretation Comments PTT (test code = PTT) 47.0 s 22.9-35.8 [place] 319711-08-05 05:53:00 Test Item Value Reference Range Interpretation Comments D-Dimer (test code = D-Dimer) 0.91 [place] 319711-08-05 05:53:00 Test Item Value Reference Range Interpretation Comments Basophils # (test code 0.1 See_Comment [Aut omated message] The = Basophils #) system which generated this result tra nsmitted reference range : <=0.2. The reference r leo was not used to int erpret this result as normal/abnormal . [facility]2021-08-05 05:53:00 Test Item Value Reference Range Interpretation Comments Ca Ion WB (test code = Ca Ion WB) 1.24 1.05-1.25 [facility]2021-08-05 05:53:00 Test Item Value Reference Range Interpretation Comments Ca Norm WB (test code = Ca Norm WB) 1.25 1.05-1.25 [place] 319711-08-05 05:53:00 Test Item Value Reference Range Interpretation Comments PT (test code = PT) 14.4 s 12.0-14.7 [facility] HospitalTipupymYBYLJFKPIS5999-50-10 05:53:00 Test Item Value Reference Range Interpretation Comments INR (test code = INR) 1.13 1 0.85-1.17 [place] 319711-08-05 05:53:00 Test Item Value Reference Range Interpretation Comments Fibrinogen Lvl (test code = Fibrinogen 319 230-510 Lvl) [facility] HospitalQzdqucaLCVEPASZKN4296-62-98 05:53:00 Test Item Value Reference Range Interpretation Comments Thrombin Time (test code = Thrombin 15.9 s 15.0-21.2 Time) [facility] HospitalMimbsriZUNDBGROQN7507-95-07 05:53:00 Test Item Value Reference Range Interpretation Comments PTT (test code = PTT) 47.0 s 22.9-35.8 [facility] HospitalHklptmpTMEEOOUUVU7099-77-31 05:53:00 Test Item Value Reference Range Interpretation Comments D-Dimer (test code = D-Dimer) 0.91 [place] 319711-08-05 05:53:00 Test Item Value Reference Range Interpretation Comments Basophils # (test code 0.1 See_Comment [Aut omated message] The = Basophils #) system which generated this result tra nsmitted reference range : <=0.2. The reference r leo was not used to int erpret this result as normal/abnormal . [facility]RO[facility] MVYAKJJ4576-55-18 05:53:00 Test Item Value Reference Range Interpretation Comments Ca Ion WB (test code = Ca Ion WB) 1.24 1.05-1.25 [facility] CenterROID APLGBCI9821-53-80 05:53:00 Test Item Value Reference Range Interpretation Comments Ca Norm WB (test code = Ca Norm WB) 1.25 1.05-1.25 [place] 319711-08-05 05:53:00 Test Item Value Reference Range Interpretation Comments PT (test code = PT) 14.4 s 12.0-14.7 [place] 319711-08-05 05:53:00 Test Item Value Reference Range Interpretation Comments INR (test code = INR) 1.13 1 0.85-1.17 [place] 319711-08-05 05:53:00 Test Item Value Reference Range Interpretation Comments Fibrinogen Lvl (test code = Fibrinogen 319 230-510 Lvl) [facility] HospitalYlpwhexRPDCCQDWNE5016-04-57 05:53:00 Test Item Value Reference Range Interpretation Comments Thrombin Time (test code = Thrombin 15.9 s 15.0-21.2 Time) [facility] HospitalXfjaipdMWQQDLYDAQ6032-12-69 05:53:00 Test Item Value Reference Range Interpretation Comments PTT (test code = PTT) 47.0 s 22.9-35.8 [facility] HospitalPqykeazUTGGCDNZWF2243-39-73 05:53:00 Test Item Value Reference Range Interpretation Comments D-Dimer (test code = D-Dimer) 0.91 [place] 319711-08-05 05:53:00 Test Item Value Reference Range Interpretation Comments Basophils # (test code 0.1 See_Comment [Aut omated message] The = Basophils #) system which generated this result tra nsmitted reference range : <=0.2. The reference r leo was not used to int erpret this result as normal/abnormal . [facility]2021-08-05 05:53:00 Test Item Value Reference Range Interpretation Comments Ca Ion WB (test code = Ca Ion WB) 1.24 1.05-1.25 [facility]2021-08-05 05:53:00 Test Item Value Reference Range Interpretation Comments Ca Norm WB (test code = Ca Norm WB) 1.25 1.05-1.25 [place] 319711-08-05 05:53:00 Test Item Value Reference Range Interpretation Comments PT (test code = PT) 14.4 s 12.0-14.7 [facility] HospitalDpvcsxfEUTAIYSCMD9295-19-39 05:53:00 Test Item Value Reference Range Interpretation Comments INR (test code = INR) 1.13 1 0.85-1.17 [place] 319711-08-05 05:53:00 Test Item Value Reference Range Interpretation Comments Fibrinogen Lvl (test code = Fibrinogen 319 230-510 Lvl) [facility] HospitalRedlquvQEDRYJKHKS3180-74-68 05:53:00 Test Item Value Reference Range Interpretation Comments Thrombin Time (test code = Thrombin 15.9 s 15.0-21.2 Time) [facility] HospitalUkiyatsGJDQDXMSGO5208-25-00 05:53:00 Test Item Value Reference Range Interpretation Comments PTT (test code = PTT) 47.0 s 22.9-35.8 [place] 319711-08-05 05:53:00 Test Item Value Reference Range Interpretation Comments D-Dimer (test code = D-Dimer) 0.91 [place] 319711-08-05 05:53:00 Test Item Value Reference Range Interpretation Comments Basophils # (test code 0.1 See_Comment [Aut omated message] The = Basophils #) system which generated this result tra nsmitted reference range : <=0.2. The reference r leo was not used to int erpret this result as normal/abnormal . [facility]2021-08-05 05:53:00 Test Item Value Reference Range Interpretation Comments Ca Ion WB (test code = Ca Ion WB) 1.24 1.05-1.25 [facility] HospitalBlue Skies NetworksMCLEOD HEALTH LORISOHEGCXV2366-89-87 05:53:00 Test Item Value Reference Range Interpretation Comments Ca Norm WB (test code = Ca Norm WB) 1.25 1.05-1.25 [facility] YOJFD1734-65-89 10:09:00 Test Item Value Reference Range Interpretation Comments ALT (test code = ALT) 49 See_Comment [Auto mated message] The system which ge nerated this result transmit rohit reference range : <=65. The reference range was not used to interpr et this result as reji l/abnormal. [facility] [employer] WHOMO9372-99-60 10:09:00 Test Item Value Reference Range Interpretation Comments Albumin Lvl (test code = Albumin Lvl) 2.8 3.5-5.0 [facility] [facility] [id number] 10:09:00 Test Item Value Reference Range Interpretation Comments Alk Phos (test code = Alk Phos) 41 39-136 [facility] [employer] [id number] 10:09:00 Test Item Value Reference Range Interpretation Comments Bili Direct (test code 0.2 See_Comment [Aut omated message] The = Bili Direct) system which generated this result tra nsmitted reference range : <=0.3. The reference r leo was not used to int erpret this result as reji l/abnormal. [facility] [employer] [id number] 10:09:00 Test Item Value Reference Range Interpretation Comments Bili Total (test code = Bili Total) 0.6 0.2-1.3 [facility] [employer] [id number] 10:09:00 Test Item Value Reference Range Interpretation Comments Bili Indirect (test 0.4 See_Comment [Automa rohit message] The code = Bili Indirect) system which generated this result tra nsmitted reference range : <=1.0. The reference r leo was not used to int erpret this result as normal/abnormal . [place] 120281-08-04 10:09:00 Test Item Value Reference Range Interpretation Comments Total Protein (test code = Total 5.6 6.4-8.4 Protein) [place] 120281-08-04 10:09:00 Test Item Value Reference Range Interpretation Comments AST (test code = AST) 33 See_Comment [Auto mated message] The system which ge nerated this result transmit rohit reference range : <=37. The reference range was not used to interpr et this result as reji l/abnormal. [facility]2021-08-04 10:09:00 Test Item Value Reference Range Interpretation Comments Globulin (test code = Globulin) 2.8 2.7-4.2 [place] 120281-08-04 10:09:00 Test Item Value Reference Range Interpretation Comments A/G Ratio (test code = A/G Ratio) 1.0 1 0.7-1.6 [place] 120281-08-04 10:09:00 Test Item Value Reference Range Interpretation Comments Amylase Lvl (test code = Amylase Lvl) 19 25-115 [place] 120281-08-04 10:09:00 Test Item Value Reference Range Interpretation Comments Lipase Lvl (test code = Lipase Lvl) no gt 73-393 [facility]PsvypgcSYTSEFUNOL2734-61-66 10:09:00 Test Item Value Reference Range Interpretation Comments PTT (test code = PTT) 41.4 s 22.9-35.8 [place] 319711-08-04 10:09:00 Test Item Value Reference Range Interpretation Comments PT (test code = PT) 15.4 s 12.0-14.7 [place] 319711-08-04 10:09:00 Test Item Value Reference Range Interpretation Comments INR (test code = INR) 1.24 1 0.85-1.17 [place] 319711-08-04 10:09:00 Test Item Value Reference Range Interpretation Comments Fibrinogen Lvl (test code = Fibrinogen 312 230-510 Lvl) [place] 319711-08-04 10:09:00 Test Item Value Reference Range Interpretation Comments Thrombin Time (test code = Thrombin 16.6 s 15.0-21.2 Time) [id number] 10:09:00 Test Item Value Reference Range Interpretation Comments D-Dimer (test code = D-Dimer) 4.91 [facility] CenterSxsahkiVQDLOVKHUC1020-71-69 10:09:00 Test Item Value Reference Range Interpretation Comments Basophils # (test code 0.1 See_Comment [Aut omated message] The = Basophils #) system which generated this result tra nsmitted reference range : <=0.2. The reference r leo was not used to int erpret this result as normal/abnormal . [facility] [id number] 10:09:00 Test Item Value Reference Range Interpretation Comments Hgb A1C (test code = Hgb A1C) 5.6 [facility] [id number] 10:09:00 Test Item Value Reference Range Interpretation Comments ALT (test code = ALT) 49 See_Comment [Auto mated message] The system which ge nerated this result transmit rohit reference range : <=65. The reference range was not used to interpr et this result as reji l/abnormal. [facility] [id number] 10:09:00 Test Item Value Reference Range Interpretation Comments Albumin Lvl (test code = Albumin Lvl) 2.8 3.5-5.0 [facility] [id number] 10:09:00 Test Item Value Reference Range Interpretation Comments Alk Phos (test code = Alk Phos) 41 39-136 [facility]2021-08-04 10:09:00 Test Item Value Reference Range Interpretation Comments Bili Direct (test code 0.2 See_Comment [Aut omated message] The = Bili Direct) system which generated this result tra nsmitted reference range : <=0.3. The reference r leo was not used to int erpret this result as reji l/abnormal. [facility] [id number] 10:09:00 Test Item Value Reference Range Interpretation Comments Bili Total (test code = Bili Total) 0.6 0.2-1.3 [facility] [id number] 10:09:00 Test Item Value Reference Range Interpretation Comments Bili Indirect (test 0.4 See_Comment [Automa rohit message] The code = Bili Indirect) system which generated this result tra nsmitted reference range : <=1.0. The reference r leo was not used to int erpret this result as normal/abnormal . [facility] [id number] 10:09:00 Test Item Value Reference Range Interpretation Comments Total Protein (test code = Total 5.6 6.4-8.4 Protein) [facility]2021-08-04 10:09:00 Test Item Value Reference Range Interpretation Comments AST (test code = AST) 33 See_Comment [Auto mated message] The system which ge nerated this result transmit rohit reference range : <=37. The reference range was not used to interpr et this result as reji l/abnormal. [facility]2021-08-04 10:09:00 Test Item Value Reference Range Interpretation Comments Globulin (test code = Globulin) 2.8 2.7-4.2 [facility]2021-08-04 10:09:00 Test Item Value Reference Range Interpretation Comments A/G Ratio (test code = A/G Ratio) 1.0 1 0.7-1.6 [facility]2021-08-04 10:09:00 Test Item Value Reference Range Interpretation Comments Amylase Lvl (test code = Amylase Lvl) 19 25-115 [facility] [id number] 10:09:00 Test Item Value Reference Range Interpretation Comments Lipase Lvl (test code = Lipase Lvl) no gt 73-393 [facility] HospitalTnerkbpESCJFMWRVY8184-68-77 10:09:00 Test Item Value Reference Range Interpretation Comments PTT (test code = PTT) 41.4 s 22.9-35.8 [facility] HospitalNcbbhwcWUZMASWZXA3295-90-48 10:09:00 Test Item Value Reference Range Interpretation Comments PT (test code = PT) 15.4 s 12.0-14.7 [facility] CenterYkxfizqAJCTSKFPYT6681-30-14 10:09:00 Test Item Value Reference Range Interpretation Comments INR (test code = INR) 1.24 1 0.85-1.17 [facility] CenterMqrremiRFNWRIYLCX9771-15-07 10:09:00 Test Item Value Reference Range Interpretation Comments Fibrinogen Lvl (test code = Fibrinogen 312 230-510 Lvl) [facility] HospitalMgrdsoqRXJUCMBRKH1540-37-94 10:09:00 Test Item Value Reference Range Interpretation Comments Thrombin Time (test code = Thrombin 16.6 s 15.0-21.2 Time) [place] 319711-08-04 10:09:00 Test Item Value Reference Range Interpretation Comments D-Dimer (test code = D-Dimer) 4.91 [facility] Hospit[id number] 10:09:00 Test Item Value Reference Range Interpretation Comments Basophils # (test code 0.1 See_Comment [Aut omated message] The = Basophils #) system which generated this result tra nsmitted reference range : <=0.2. The reference r leo was not used to int erpret this result as normal/abnormal . [facility] [id number] 10:09:00 Test Item Value Reference Range Interpretation Comments Hgb A1C (test code = Hgb A1C) 5.6 [facility] [id number] 10:09:00 Test Item Value Reference Range Interpretation Comments ALT (test code = ALT) 49 See_Comment [Auto mated message] The system which ge nerated this result transmit rohit reference range : <=65. The reference range was not used to interpr et this result as reji l/abnormal. [facility] [id number] 10:09:00 Test Item Value Reference Range Interpretation Comments Albumin Lvl (test code = Albumin Lvl) 2.8 3.5-5.0 [facility] [id number] 10:09:00 Test Item Value Reference Range Interpretation Comments Alk Phos (test code = Alk Phos) 41 39-136 [facility]2021-08-04 10:09:00 Test Item Value Reference Range Interpretation Comments Bili Direct (test code 0.2 See_Comment [Aut omated message] The = Bili Direct) system which generated this result tra nsmitted reference range : <=0.3. The reference r leo was not used to int erpret this result as reji l/abnormal. [facility] [id number] 10:09:00 Test Item Value Reference Range Interpretation Comments Bili Total (test code = Bili Total) 0.6 0.2-1.3 [facility] [id number] 10:09:00 Test Item Value Reference Range Interpretation Comments Bili Indirect (test 0.4 See_Comment [Automa rohit message] The code = Bili Indirect) system which generated this result tra nsmitted reference range : <=1.0. The reference r leo was not used to int erpret this result as normal/abnormal . [place] 120281-08-04 10:09:00 Test Item Value Reference Range Interpretation Comments Total Protein (test code = Total 5.6 6.4-8.4 Protein) [place] 120281-08-04 10:09:00 Test Item Value Reference Range Interpretation Comments AST (test code = AST) 33 See_Comment [Auto mated message] The system which ge nerated this result transmit rohit reference range : <=37. The reference range was not used to interpr et this result as reji l/abnormal. [place] 120281-08-04 10:09:00 Test Item Value Reference Range Interpretation Comments Globulin (test code = Globulin) 2.8 2.7-4.2 [place] 120281-08-04 10:09:00 Test Item Value Reference Range Interpretation Comments A/G Ratio (test code = A/G Ratio) 1.0 1 0.7-1.6 [place] 120281-08-04 10:09:00 Test Item Value Reference Range Interpretation Comments Amylase Lvl (test code = Amylase Lvl) 19 25-115 [place] 120281-08-04 10:09:00 Test Item Value Reference Range Interpretation Comments Lipase Lvl (test code = Lipase Lvl) no gt 73-393 [facility] HospitalDfvyxptRXLFNYWFLS5400-75-91 10:09:00 Test Item Value Reference Range Interpretation Comments PTT (test code = PTT) 41.4 s 22.9-35.8 [place] 319711-08-04 10:09:00 Test Item Value Reference Range Interpretation Comments PT (test code = PT) 15.4 s 12.0-14.7 [place] 319711-08-04 10:09:00 Test Item Value Reference Range Interpretation Comments INR (test code = INR) 1.24 1 0.85-1.17 [place] 319711-08-04 10:09:00 Test Item Value Reference Range Interpretation Comments Fibrinogen Lvl (test code = Fibrinogen 312 230-510 Lvl) [place] 319711-08-04 10:09:00 Test Item Value Reference Range Interpretation Comments Thrombin Time (test code = Thrombin 16.6 s 15.0-21.2 Time) [facility] Hospit[id number] 10:09:00 Test Item Value Reference Range Interpretation Comments D-Dimer (test code = D-Dimer) 4.91 [facility] HospitalFisvcigEDVHPZAJWR1766-41-63 10:09:00 Test Item Value Reference Range Interpretation Comments Basophils # (test code 0.1 See_Comment [Aut omated message] The = Basophils #) system which generated this result tra nsmitted reference range : <=0.2. The reference r leo was not used to int erpret this result as normal/abnormal . [facility] [id number] 10:09:00 Test Item Value Reference Range Interpretation Comments Hgb A1C (test code = Hgb A1C) 5.6 [facility] [id number] 10:09:00 Test Item Value Reference Range Interpretation Comments ALT (test code = ALT) 49 See_Comment [Auto mated message] The system which ge nerated this result transmit rohit reference range : <=65. The reference range was not used to interpr et this result as reji l/abnormal. [facility] [id number] 10:09:00 Test Item Value Reference Range Interpretation Comments Albumin Lvl (test code = Albumin Lvl) 2.8 3.5-5.0 [facility] [id number] 10:09:00 Test Item Value Reference Range Interpretation Comments Alk Phos (test code = Alk Phos) 41 39-136 [facility] [id number] 10:09:00 Test Item Value Reference Range Interpretation Comments Bili Direct (test code 0.2 See_Comment [Aut omated message] The = Bili Direct) system which generated this result tra nsmitted reference range : <=0.3. The reference r leo was not used to int erpret this result as reji l/abnormal. [facility] [employer] [id number] 10:09:00 Test Item Value Reference Range Interpretation Comments Bili Total (test code = Bili Total) 0.6 0.2-1.3 [facility] [id number] 10:09:00 Test Item Value Reference Range Interpretation Comments Bili Indirect (test 0.4 See_Comment [Automa rohit message] The code = Bili Indirect) system which generated this result tra nsmitted reference range : <=1.0. The reference r leo was not used to int erpret this result as normal/abnormal . [facility] [id number] 10:09:00 Test Item Value Reference Range Interpretation Comments Total Protein (test code = Total 5.6 6.4-8.4 Protein) [facility] [id number] 10:09:00 Test Item Value Reference Range Interpretation Comments AST (test code = AST) 33 See_Comment [Auto mated message] The system which ge nerated this result transmit rohit reference range : <=37. The reference range was not used to interpr et this result as reji l/abnormal. [facility] [id number] 10:09:00 Test Item Value Reference Range Interpretation Comments Globulin (test code = Globulin) 2.8 2.7-4.2 [facility] [id number] 10:09:00 Test Item Value Reference Range Interpretation Comments A/G Ratio (test code = A/G Ratio) 1.0 1 0.7-1.6 [facility] [id number] 10:09:00 Test Item Value Reference Range Interpretation Comments Amylase Lvl (test code = Amylase Lvl) 19 25-115 [facility] [id number] 10:09:00 Test Item Value Reference Range Interpretation Comments Lipase Lvl (test code = Lipase Lvl) no gt 73-393 [facility] CenterXhlmgnpTCFXJQPSFG3311-08-67 10:09:00 Test Item Value Reference Range Interpretation Comments PTT (test code = PTT) 41.4 s 22.9-35.8 [facility] CenterYansijcIFAYZNPFGV4619-41-99 10:09:00 Test Item Value Reference Range Interpretation Comments PT (test code = PT) 15.4 s 12.0-14.7 [facility] CenterVhexyvlQMQGFMGCAC9075-38-41 10:09:00 Test Item Value Reference Range Interpretation Comments INR (test code = INR) 1.24 1 0.85-1.17 [facility] Cent[id number] 10:09:00 Test Item Value Reference Range Interpretation Comments Fibrinogen Lvl (test code = Fibrinogen 312 230-510 Lvl) [facility] CenterYppsnrvGQKLAZACEI5376-11-09 10:09:00 Test Item Value Reference Range Interpretation Comments Thrombin Time (test code = Thrombin 16.6 s 15.0-21.2 Time) [facility]asqlgxBLNVQIMEEP3589-76-50 10:09:00 Test Item Value Reference Range Interpretation Comments D-Dimer (test code = D-Dimer) 4.91 [facility]CljnhdmIFGHBSBMRM7957-17-32 10:09:00 Test Item Value Reference Range Interpretation Comments Basophils # (test code 0.1 See_Comment [Aut omated message] The = Basophils #) system which generated this result tra nsmitted reference range : <=0.2. The reference r leo was not used to int erpret this result as normal/abnormal . [facility] QHGJACCPB5406-07-86 10:09:00 Test Item Value Reference Range Interpretation Comments Hgb A1C (test code = Hgb A1C) 5.6 [facility] [id number] 10:09:00 Test Item Value Reference Range Interpretation Comments ALT (test code = ALT) 49 See_Comment [Auto mated message] The system which ge nerated this result transmit rohit reference range : <=65. The reference range was not used to interpr et this result as reji l/abnormal. [facility] [employer] [id number] 10:09:00 Test Item Value Reference Range Interpretation Comments Albumin Lvl (test code = Albumin Lvl) 2.8 3.5-5.0 [facility] [id number] 10:09:00 Test Item Value Reference Range Interpretation Comments Alk Phos (test code = Alk Phos) 41 39-136 [facility] [employer] [id number] 10:09:00 Test Item Value Reference Range Interpretation Comments Bili Direct (test code 0.2 See_Comment [Aut omated message] The = Bili Direct) system which generated this result tra nsmitted reference range : <=0.3. The reference r leo was not used to int erpret this result as reji l/abnormal. [facility] [employer] [id number] 10:09:00 Test Item Value Reference Range Interpretation Comments Bili Total (test code = Bili Total) 0.6 0.2-1.3 [facility] [employer] [id number] 10:09:00 Test Item Value Reference Range Interpretation Comments Bili Indirect (test 0.4 See_Comment [Automa rohit message] The code = Bili Indirect) system which generated this result tra nsmitted reference range : <=1.0. The reference r leo was not used to int erpret this result as normal/abnormal . [facility] [id number] 10:09:00 Test Item Value Reference Range Interpretation Comments Total Protein (test code = Total 5.6 6.4-8.4 Protein) [facility] [id number] 10:09:00 Test Item Value Reference Range Interpretation Comments AST (test code = AST) 33 See_Comment [Auto mated message] The system which ge nerated this result transmit rohit reference range : <=37. The reference range was not used to interpr et this result as reji l/abnormal. [facility] [id number] 10:09:00 Test Item Value Reference Range Interpretation Comments Globulin (test code = Globulin) 2.8 2.7-4.2 [facility] [id number] 10:09:00 Test Item Value Reference Range Interpretation Comments A/G Ratio (test code = A/G Ratio) 1.0 1 0.7-1.6 [facility] [id number] 10:09:00 Test Item Value Reference Range Interpretation Comments Amylase Lvl (test code = Amylase Lvl) 19 25-115 [facility] [id number] 10:09:00 Test Item Value Reference Range Interpretation Comments Lipase Lvl (test code = Lipase Lvl) no gt 73-393 [facility] CenterFkbaixvVHESZEESTG1114-58-42 10:09:00 Test Item Value Reference Range Interpretation Comments PTT (test code = PTT) 41.4 s 22.9-35.8 [facility] CenterTmhvcxdYSMIXXAOJE3324-93-14 10:09:00 Test Item Value Reference Range Interpretation Comments PT (test code = PT) 15.4 s 12.0-14.7 [facility] CenterPfooagrFUPZFUIMCE9229-58-11 10:09:00 Test Item Value Reference Range Interpretation Comments INR (test code = INR) 1.24 1 0.85-1.17 [facility] HospitalMoiuacuUGEHYODCLG1462-22-11 10:09:00 Test Item Value Reference Range Interpretation Comments Fibrinogen Lvl (test code = Fibrinogen 312 230-510 Lvl) [facility] HospitalIwzlaxiHICQWRBXCR6873-27-84 10:09:00 Test Item Value Reference Range Interpretation Comments Thrombin Time (test code = Thrombin 16.6 s 15.0-21.2 Time) [facility] HospitalIrlcdbkXCALERCVPI8205-15-60 10:09:00 Test Item Value Reference Range Interpretation Comments D-Dimer (test code = D-Dimer) 4.91 [facility] HospitalJegpvgvBOGUREUTTW7330-25-83 10:09:00 Test Item Value Reference Range Interpretation Comments Basophils # (test code 0.1 See_Comment [Aut omated message] The = Basophils #) system which generated this result tra nsmitted reference range : <=0.2. The reference r leo was not used to int erpret this result as normal/abnormal . [facility] IMCGCRHAM3795-44-61 10:09:00 Test Item Value Reference Range Interpretation Comments Hgb A1C (test code = Hgb A1C) 5.6 [facility] [id number] 09:07:00 Test Item Value Reference Range Interpretation Comments Amylase Lvl (test code = Amylase Lvl) 4 - [facility] HospitalHawgguqSAUWDEGKHP1031-13-94 09:07:00 Test Item Value Reference Range Interpretation Comments Thrombin Time (test code = Thrombin 18.0 s 15.0-21.2 Time) [facility] HospitalUjhcgypPRVCMWLENC1806-86-10 09:07:00 Test Item Value Reference Range Interpretation Comments PT (test code = PT) 24.6 s 12.0-14.7 [facility] HospitalEdjnuttDAZNBLGBCM2271-13-95 09:07:00 Test Item Value Reference Range Interpretation Comments INR (test code = INR) 2.31 1 0.85-1.17 [facility] HospitalVtcummaBCRFKAGUCG1254-10-18 09:07:00 Test Item Value Reference Range Interpretation Comments PTT (test code = PTT) 57.5 s 22.9-35.8 [facility] HospitalVgoocinTWBVAFPTJP5560-04-66 09:07:00 Test Item Value Reference Range Interpretation Comments Fibrinogen Lvl (test code = Fibrinogen 125 230-510 Lvl) [facility] HospitalNpzzudgJBFLTCNDPD0157-78-85 09:07:00 Test Item Value Reference Range Interpretation Comments D-Dimer (test code = D-Dimer) 2.28 [facility] [id number] 09:07:00 Test Item Value Reference Range Interpretation Comments Amylase Lvl (test code = Amylase Lvl) 4 -115 [facility] HospitalJgjtcesDLAZSYUBAA5878-38-67 09:07:00 Test Item Value Reference Range Interpretation Comments Thrombin Time (test code = Thrombin 18.0 s 15.0-21.2 Time) [place] 319711-08-04 09:07:00 Test Item Value Reference Range Interpretation Comments PT (test code = PT) 24.6 s 12.0-14.7 [place] 319711-08-04 09:07:00 Test Item Value Reference Range Interpretation Comments INR (test code = INR) 2.31 1 0.85-1.17 [place] 319711-08-04 09:07:00 Test Item Value Reference Range Interpretation Comments PTT (test code = PTT) 57.5 s 22.9-35.8 [place] 319711-08-04 09:07:00 Test Item Value Reference Range Interpretation Comments Fibrinogen Lvl (test code = Fibrinogen 125 230-510 Lvl) [facility] HospitalPpqddgjFTZEBAQZJR1090-64-48 09:07:00 Test Item Value Reference Range Interpretation Comments D-Dimer (test code = D-Dimer) 2.28 [facility]2021-08-04 09:07:00 Test Item Value Reference Range Interpretation Comments Amylase Lvl (test code = Amylase Lvl) 4 25-115 [facility] HospitalUabmoosDVVNRSNCYX7170-44-39 09:07:00 Test Item Value Reference Range Interpretation Comments Thrombin Time (test code = Thrombin 18.0 s 15.0-21.2 Time) [place] 319711-08-04 09:07:00 Test Item Value Reference Range Interpretation Comments PT (test code = PT) 24.6 s 12.0-14.7 [place] 319711-08-04 09:07:00 Test Item Value Reference Range Interpretation Comments INR (test code = INR) 2.31 1 0.85-1.17 [place] 319711-08-04 09:07:00 Test Item Value Reference Range Interpretation Comments PTT (test code = PTT) 57.5 s 22.9-35.8 [place] 319711-08-04 09:07:00 Test Item Value Reference Range Interpretation Comments Fibrinogen Lvl (test code = Fibrinogen 125 230-510 Lvl) [facility] HospitalMtgocvtEOZAUWLHLC5713-55-22 09:07:00 Test Item Value Reference Range Interpretation Comments D-Dimer (test code = D-Dimer) 2.28 [facility]2021-08-04 09:07:00 Test Item Value Reference Range Interpretation Comments Amylase Lvl (test code = Amylase Lvl) 4 25-115 [place] 319711-08-04 09:07:00 Test Item Value Reference Range Interpretation Comments Thrombin Time (test code = Thrombin 18.0 s 15.0-21.2 Time) [facility] HospitalGmgpnsxQPCZMGCWHK8874-76-13 09:07:00 Test Item Value Reference Range Interpretation Comments PT (test code = PT) 24.6 s 12.0-14.7 [place] 319711-08-04 09:07:00 Test Item Value Reference Range Interpretation Comments INR (test code = INR) 2.31 1 0.85-1.17 [place] 319711-08-04 09:07:00 Test Item Value Reference Range Interpretation Comments PTT (test code = PTT) 57.5 s 22.9-35.8 [place] [id number] 09:07:00 Test Item Value Reference Range Interpretation Comments Fibrinogen Lvl (test code = Fibrinogen 125 230-510 Lvl) [id number] 09:07:00 Test Item Value Reference Range Interpretation Comments D-Dimer (test code = D-Dimer) 2.28 [facility]2021-08-04 09:07:00 Test Item Value Reference Range Interpretation Comments Amylase Lvl (test code = Amylase Lvl) 4 - [id number] 09:07:00 Test Item Value Reference Range Interpretation Comments Thrombin Time (test code = Thrombin 18.0 s 15.0-21.2 Time) [facility]PrevobcVTTPFTLEUQ2456-83-47 09:07:00 Test Item Value Reference Range Interpretation Comments PT (test code = PT) 24.6 s 12.0-14.7 [place] 319711-08-04 09:07:00 Test Item Value Reference Range Interpretation Comments INR (test code = INR) 2.31 1 0.85-1.17 [place] 319711-08-04 09:07:00 Test Item Value Reference Range Interpretation Comments PTT (test code = PTT) 57.5 s 22.9-35.8 [facility] HospitalJowhldtVZPTHLGHOB1191-18-15 09:07:00 Test Item Value Reference Range Interpretation Comments Fibrinogen Lvl (test code = Fibrinogen 125 230-510 Lvl) [facility] HospitalNskntioXBYWBJCZSF6312-73-08 09:07:00 Test Item Value Reference Range Interpretation Comments D-Dimer (test code = D-Dimer) 2.28 [facility] [id number] 04:52:00 Test Item Value Reference Range Interpretation Comments RBC product (test code Product available = RBC product) (01/21/21 11:52 PM) [facility] [id number] 04:52:00 Test Item Value Reference Range Interpretation Comments RBC product (test code Product available = RBC product) (01/21/21 11:52 PM) [facility] [id number] 04:52:00 Test Item Value Reference Range Interpretation Comments RBC product (test code Product available = RBC product) (01/21/21 11:52 PM) [facility] [id number] 04:52:00 Test Item Value Reference Range Interpretation Comments RBC product (test code Product available = RBC product) (01/21/21 11:52 PM) [facility] [id number] 04:52:00 Test Item Value Reference Range Interpretation Comments RBC product (test code Product available = RBC product) (01/21/21 11:52 PM) [facility] [id number] 00:38:00 Test Item Value Reference Range Interpretation Comments Troponin-I (test code no gt See_Comment [Auto mated message] The = Troponin-I) system which g enerated this result transmit rohit reference range : <=0.40. The reference r leo was not used to interpr et this result as reji l/abnormal. [facility]00 Test Item Value Reference Range Interpretation Comments Troponin-I (test code no gt See_Comment [Auto mated message] The = Troponin-I) system which g enerated this result transmit rohit reference range : <=0.40. The reference r leo was not used to interpr et this result as reji l/abnormal. [facility] [employer]2021-08-04 00:38:00 Test Item Value Reference Range Interpretation Comments Troponin-I (test code no gt See_Comment [Auto mated message] The = Troponin-I) system which g enerated this result transmit rohit reference range : <=0.40. The reference r leo was not used to interpr et this result as reji l/abnormal. [facility] 00:38:00 Test Item Value Reference Range Interpretation Comments Troponin-I (test code no gt See_Comment [Auto mated message] The = Troponin-I) system which g enerated this result transmit rohit reference range : <=0.40. The reference r leo was not used to interpr et this result as reji l/abnormal. [facility] 00:38:00 Test Item Value Reference Range Interpretation Comments Troponin-I (test code no gt See_Comment [Auto mated message] The = Troponin-I) system which g enerated this result transmit rohit reference range : <=0.40. The reference r leo was not used to interpr et this result as reji l/abnormal. [facility] 17:47:00 Test Item Value Reference Range Interpretation Comments BNP (test code = BNP) 2323 [facility] 17:47:00 Test Item Value Reference Range Interpretation Comments Troponin-I (test code 0.02 See_Comment [Auto mated message] The = Troponin-I) system which g enerated this result transmit rohit reference range : <=0.40. The reference r leo was not used to interpr et this result as reji l/abnormal. [facility] NfervraTJGGTYQWZX2073-03-71 17:47:00 Test Item Value Reference Range Interpretation Comments Hep Bs Ag (test code Negative *NA*(01/21/21 = Hep Bs Ag) 12:47 PM) [facility] 17:47:00 Test Item Value Reference Range Interpretation Comments BNP (test code = BNP) 232 [facility] [employer]2021-08-03 17:47:00 Test Item Value Reference Range Interpretation Comments Troponin-I (test code 0.02 See_Comment [Auto mated message] The = Troponin-I) system which g enerated this result transmit rohit reference range : <=0.40. The reference r leo was not used to interpr et this result as reji l/abnormal. [facility] CenterTqrtertZNOZPKMJRY0932-73-59 17:47:00 Test Item Value Reference Range Interpretation Comments Hep Bs Ag (test code Negative *NA*(01/21/21 = Hep Bs Ag) 12:47 PM) [facility] NextlyannCARDIAC [id number] 17:47:00 Test Item Value Reference Range Interpretation Comments BNP (test code = BNP) 2324 [facility] NextlyannCARDIAC [id number] 17:47:00 Test Item Value Reference Range Interpretation Comments Troponin-I (test code 0.02 See_Comment [Auto mated message] The = Troponin-I) system which g enerated this result transmit rohit reference range : <=0.40. The reference r leo was not used to interpr et this result as reji l/abnormal. [facility] CenterTorrxqsWPTGXYNQIM7112-36-43 17:47:00 Test Item Value Reference Range Interpretation Comments Hep Bs Ag (test code Negative *NA*(01/21/21 = Hep Bs Ag) 12:47 PM) [facility] AmulyteCARMir VrachaAC [id number] 17:47:00 Test Item Value Reference Range Interpretation Comments BNP (test code = BNP) 2324 [facility] NextlyannCARMir VrachaAC [id number] 17:47:00 Test Item Value Reference Range Interpretation Comments Troponin-I (test code 0.02 See_Comment [Auto mated message] The = Troponin-I) system which g enerated this result transmit rohit reference range : <=0.40. The reference r leo was not used to interpr et this result as reji l/abnormal. [facility] [id number] 17:47:00 Test Item Value Reference Range Interpretation Comments Hep Bs Ag (test code Negative *NA*(01/21/21 = Hep Bs Ag) 12:47 PM) [facility] NextlyannCARDIAC [id number] 17:47:00 Test Item Value Reference Range Interpretation Comments BNP (test code = BNP) 2324 [facility] NextlyannCARDIAC [id number] 17:47:00 Test Item Value Reference Range Interpretation Comments Troponin-I (test code 0.02 See_Comment [Auto mated message] The = Troponin-I) system which g enerated this result transmit rohit reference range : <=0.40. The reference r leo was not used to interpr et this result as reji l/abnormal. [facility] CenterIejaokbHRAETXPHNI2207-16-58 17:47:00 Test Item Value Reference Range Interpretation Comments Hep Bs Ag (test code Negative *NA*(01/21/21 = Hep Bs Ag) 12:47 PM) [facility] [employer] [id number] 17:43:00 Test Item Value Reference Range Interpretation Comments B/C Ratio (test code = B/C Ratio) 5 1 6-25 [facility] [id number] 17:43:00 Test Item Value Reference Range Interpretation Comments ALT (test code = ALT) 66 See_Comment [Auto mated message] The system which ge nerated this result transmit rohit reference range : <=65. The reference range was not used to interpr et this result as reji l/abnormal. [facility] [employer] [id number] 17:43:00 Test Item Value Reference Range Interpretation Comments Albumin Lvl (test code = Albumin Lvl) 3.0 3.5-5.0 [facility] [employer] [id number] 17:43:00 Test Item Value Reference Range Interpretation Comments Alk Phos (test code = Alk Phos) 40 39-136 [facility] [employer] [id number] 17:43:00 Test Item Value Reference Range Interpretation Comments Bili Total (test code = Bili Total) 0.5 0.2-1.3 [facility] [employer] [id number] 17:43:00 Test Item Value Reference Range Interpretation Comments Total Protein (test code = Total 5.7 6.4-8.4 Protein) [facility] [id number] 17:43:00 Test Item Value Reference Range Interpretation Comments AST (test code = AST) 52 See_Comment [Auto mated message] The system which ge nerated this result transmit rohit reference range : <=37. The reference range was not used to interpr et this result as reji l/abnormal. [facility] [employer] [id number] 17:43:00 Test Item Value Reference Range Interpretation Comments Globulin (test code = Globulin) 2.7 2.7-4.2 [facility] [employer] [id number] 17:43:00 Test Item Value Reference Range Interpretation Comments A/G Ratio (test code = A/G Ratio) 1.1 1 0.7-1.6 [place] [address]-08-03 17:43:00 Test Item Value Reference Range Interpretation Comments Lactic Acid Lvl (test code = Lactic 1.1 0.5-2.2 Acid Lvl) [facility] [id number] 17:43:00 Test Item Value Reference Range Interpretation Comments B/C Ratio (test code = B/C Ratio) 5 1 6-25 [facility] [id number] 17:43:00 Test Item Value Reference Range Interpretation Comments ALT (test code = ALT) 66 See_Comment [Auto mated message] The system which ge nerated this result transmit rohit reference range : <=65. The reference range was not used to interpr et this result as reji l/abnormal. [facility] [id number] 17:43:00 Test Item Value Reference Range Interpretation Comments Albumin Lvl (test code = Albumin Lvl) 3.0 3.5-5.0 [facility] [id number] 17:43:00 Test Item Value Reference Range Interpretation Comments Alk Phos (test code = Alk Phos) 40 39-136 [facility] [id number] 17:43:00 Test Item Value Reference Range Interpretation Comments Bili Total (test code = Bili Total) 0.5 0.2-1.3 [facility] [id number] 17:43:00 Test Item Value Reference Range Interpretation Comments Total Protein (test code = Total 5.7 6.4-8.4 Protein) [facility] [id number] 17:43:00 Test Item Value Reference Range Interpretation Comments AST (test code = AST) 52 See_Comment [Auto mated message] The system which ge nerated this result transmit rohit reference range : <=37. The reference range was not used to interpr et this result as reji l/abnormal. [facility] [id number] 17:43:00 Test Item Value Reference Range Interpretation Comments Globulin (test code = Globulin) 2.7 2.7-4.2 [facility] [employer] [id number] 17:43:00 Test Item Value Reference Range Interpretation Comments A/G Ratio (test code = A/G Ratio) 1.1 1 0.7-1.6 [place] [address]-08-03 17:43:00 Test Item Value Reference Range Interpretation Comments Lactic Acid Lvl (test code = Lactic 1.1 0.5-2.2 Acid Lvl) [place] [address]-08-03 17:43:00 Test Item Value Reference Range Interpretation Comments B/C Ratio (test code = B/C Ratio) 5 1 6-[address]08-03 17:43:00 Test Item Value Reference Range Interpretation Comments ALT (test code = ALT) 66 See_Comment [Auto mated message] The system which ge nerated this result transmit rohit reference range : <=65. The reference range was not used to interpr et this result as reji l/abnormal. [facility] [id number] 17:43:00 Test Item Value Reference Range Interpretation Comments Albumin Lvl (test code = Albumin Lvl) 3.0 3.5-5.0 [facility] [id number] 17:43:00 Test Item Value Reference Range Interpretation Comments Alk Phos (test code = Alk Phos) 40 39-136 [facility] [id number] 17:43:00 Test Item Value Reference Range Interpretation Comments Bili Total (test code = Bili Total) 0.5 0.2-1.3 [place] [address]-08-03 17:43:00 Test Item Value Reference Range Interpretation Comments Total Protein (test code = Total 5.7 6.4-8.4 Protein) [facility] [id number] 17:43:00 Test Item Value Reference Range Interpretation Comments AST (test code = AST) 52 See_Comment [Auto mated message] The system which ge nerated this result transmit rohit reference range : <=37. The reference range was not used to interpr et this result as reji l/abnormal. [facility] [id number] 17:43:00 Test Item Value Reference Range Interpretation Comments Globulin (test code = Globulin) 2.7 2.7-4.2 [facility] [id number] 17:43:00 Test Item Value Reference Range Interpretation Comments A/G Ratio (test code = A/G Ratio) 1.1 1 0.7-1.6 [facility] [id number] 17:43:00 Test Item Value Reference Range Interpretation Comments Lactic Acid Lvl (test code = Lactic 1.1 0.5-2.2 Acid Lvl) [place] 120281-08-03 17:43:00 Test Item Value Reference Range Interpretation Comments B/C Ratio (test code = B/C Ratio) 5 1 6-25 [facility] [id number] 17:43:00 Test Item Value Reference Range Interpretation Comments ALT (test code = ALT) 66 See_Comment [Auto mated message] The system which ge nerated this result transmit rohit reference range : <=65. The reference range was not used to interpr et this result as reji l/abnormal. [facility] [id number] 17:43:00 Test Item Value Reference Range Interpretation Comments Albumin Lvl (test code = Albumin Lvl) 3.0 3.5-5.0 [facility] [id number] 17:43:00 Test Item Value Reference Range Interpretation Comments Alk Phos (test code = Alk Phos) 40 39-136 [facility] [id number] 17:43:00 Test Item Value Reference Range Interpretation Comments Bili Total (test code = Bili Total) 0.5 0.2-1.3 [facility] [id number] 17:43:00 Test Item Value Reference Range Interpretation Comments Total Protein (test code = Total 5.7 6.4-8.4 Protein) [place] [address]-08-03 17:43:00 Test Item Value Reference Range Interpretation Comments AST (test code = AST) 52 See_Comment [Auto mated message] The system which ge nerated this result transmit rohit reference range : <=37. The reference range was not used to interpr et this result as reji l/abnormal. [facility] [id number] 17:43:00 Test Item Value Reference Range Interpretation Comments Globulin (test code = Globulin) 2.7 2.7-4.2 [facility] [id number] 17:43:00 Test Item Value Reference Range Interpretation Comments A/G Ratio (test code = A/G Ratio) 1.1 1 0.7-1.6 [address]08-03 17:43:00 Test Item Value Reference Range Interpretation Comments Lactic Acid Lvl (test code = Lactic 1.1 0.5-2.2 Acid Lvl) [address]08-03 17:43:00 Test Item Value Reference Range Interpretation Comments B/C Ratio (test code = B/C Ratio) 5 1 6-[address]08-03 17:43:00 Test Item Value Reference Range Interpretation Comments ALT (test code = ALT) 66 See_Comment [Auto mated message] The system which ge nerated this result transmit rohit reference range : <=65. The reference range was not used to interpr et this result as reji l/abnormal. [address]08-03 17:43:00 Test Item Value Reference Range Interpretation Comments Albumin Lvl (test code = Albumin Lvl) 3.0 3.5-5.0 [address]08-03 17:43:00 Test Item Value Reference Range Interpretation Comments Alk Phos (test code = Alk Phos) 40 39-136 [address]08-03 17:43:00 Test Item Value Reference Range Interpretation Comments Bili Total (test code = Bili Total) 0.5 0.2-1.[address]08-03 17:43:00 Test Item Value Reference Range Interpretation Comments Total Protein (test code = Total 5.7 6.4-8.4 Protein) [address]08-03 17:43:00 Test Item Value Reference Range Interpretation Comments AST (test code = AST) 52 See_Comment [Auto mated message] The system which ge nerated this result transmit rohit reference range : <=37. The reference range was not used to interpr et this result as reji l/abnormal. [facility] [id number] 17:43:00 Test Item Value Reference Range Interpretation Comments Globulin (test code = Globulin) 2.7 2.7-4.2 [facility] [id number] 17:43:00 Test Item Value Reference Range Interpretation Comments A/G Ratio (test code = A/G Ratio) 1.1 1 0.7-1.6 [facility] [id number] 17:43:00 Test Item Value Reference Range Interpretation Comments Lactic Acid Lvl (test code = Lactic 1.1 0.5-2.2 Acid Lvl) [facility] [id number] 16:20:00 Test Item Value Reference Range Interpretation Comments ABO/Rh (test code = ABO/Rh) B POS [facility] [id number] 16:20:00 Test Item Value Reference Range Interpretation Comments Antibody Scrn (test Negative (01/21/21 11:20 code = Antibody Scrn) AM) [id number] 16:20:00 Test Item Value Reference Range Interpretation Comments Anisocyte (test code = 1+ *ABN*(01/21/21 Anisocyte) 11:20 AM) [facility] [id number] 16:20:00 Test Item Value Reference Range Interpretation Comments ABO/Rh (test code = ABO/Rh) B POS [facility] [id number] 16:20:00 Test Item Value Reference Range Interpretation Comments Antibody Scrn (test Negative (01/21/21 11:20 code = Antibody Scrn) AM) [facility] [id number] 16:20:00 Test Item Value Reference Range Interpretation Comments Anisocyte (test code = 1+ *ABN*(01/21/21 Anisocyte) 11:20 AM) [facility] [id number] 16:20:00 Test Item Value Reference Range Interpretation Comments ABO/Rh (test code = ABO/Rh) B POS [facility] AmulyteLoop App [facility] [id number] 16:20:00 Test Item Value Reference Range Interpretation Comments Antibody Scrn (test Negative (01/21/21 11:20 code = Antibody Scrn) AM) [facility] H[id number] 16:20:00 Test Item Value Reference Range Interpretation Comments Anisocyte (test code = 1+ *ABN*(01/21/21 Anisocyte) 11:20 AM) [facility]Learn[facility] [id number] 16:20:00 Test Item Value Reference Range Interpretation Comments ABO/Rh (test code = ABO/Rh) B POS [facility] [id number] 16:20:00 Test Item Value Reference Range Interpretation Comments Antibody Scrn (test Negative (01/21/21 11:20 code = Antibody Scrn) AM) [facility] H[id number] 16:20:00 Test Item Value Reference Range Interpretation Comments Anisocyte (test code = 1+ *ABN*(01/21/21 Anisocyte) 11:20 AM) [facility] [id number] 16:20:00 Test Item Value Reference Range Interpretation Comments ABO/Rh (test code = ABO/Rh) B POS [facility] [id number] 16:20:00 Test Item Value Reference Range Interpretation Comments Antibody Scrn (test Negative (01/21/21 11:20 code = Antibody Scrn) AM) [facility] [id number] 16:20:00 Test Item Value Reference Range Interpretation Comments Anisocyte (test code = 1+ *ABN*(01/21/21 Anisocyte) 11:20 AM) [facility] [email or web address] [id number] 15:35:00 Test Item Value Reference Range Interpretation Comments Lactase Lvl (test code = Lactase Lvl) 2.0 [facility] [id number] 15:35:00 Test Item Value Reference Range Interpretation Comments Sucrase Lvl (test code = Sucrase Lvl) 38.6 [facility] CenterClipMineHAR[facility] [id number] 15:35:00 Test Item Value Reference Range Interpretation Comments Maltase Lvl (test code = Maltase Lvl) 177.2 [facility] CenterElevate MedicalATRI[facility] [id number] 15:35:00 Test Item Value Reference Range Interpretation Comments Palatinase Lvl (test code = Palatinase 13.8 Lvl) [facility] [email or web address].comATRIUM [facility] [id number] 15:35:00 Test Item Value Reference Range Interpretation Comments Lactase Lvl (test code = Lactase Lvl) 2.0 [facility] MedicalAT[facility] [id number] 15:35:00 Test Item Value Reference Range Interpretation Comments Sucrase Lvl (test code = Sucrase Lvl) 38.6 [facility] [id number] 15:35:00 Test Item Value Reference Range Interpretation Comments Maltase Lvl (test code = Maltase Lvl) 177.2 [facility] [id number] 15:35:00 Test Item Value Reference Range Interpretation Comments Palatinase Lvl (test code = Palatinase 13.8 Lvl) [facility] [id number] 15:35:00 Test Item Value Reference Range Interpretation Comments Lactase Lvl (test code = Lactase Lvl) 2.0 [facility] [id number] 15:35:00 Test Item Value Reference Range Interpretation Comments Sucrase Lvl (test code = Sucrase Lvl) 38.6 [facility] [id number] 15:35:00 Test Item Value Reference Range Interpretation Comments Maltase Lvl (test code = Maltase Lvl) 177.2 [facility] [id number] 15:35:00 Test Item Value Reference Range Interpretation Comments Palatinase Lvl (test code = Palatinase 13.8 Lvl) [facility] [id number] 15:35:00 Test Item Value Reference Range Interpretation Comments Lactase Lvl (test code = Lactase Lvl) 2.0 [facility] [id number] 15:35:00 Test Item Value Reference Range Interpretation Comments Sucrase Lvl (test code = Sucrase Lvl) 38.6 [facility] [id number] 15:35:00 Test Item Value Reference Range Interpretation Comments Maltase Lvl (test code = Maltase Lvl) 177.2 [facility] [id number] 15:35:00 Test Item Value Reference Range Interpretation Comments Palatinase Lvl (test code = Palatinase 13.8 Lvl) [facility] [id number] 15:35:00 Test Item Value Reference Range Interpretation Comments Lactase Lvl (test code = Lactase Lvl) 2.0 [facility] [id number] 15:35:00 Test Item Value Reference Range Interpretation Comments Sucrase Lvl (test code = Sucrase Lvl) 38.6 [facility] [id number] 15:35:00 Test Item Value Reference Range Interpretation Comments Maltase Lvl (test code = Maltase Lvl) 177.2 [facility] [id number] 15:35:00 Test Item Value Reference Range Interpretation Comments Palatinase Lvl (test code = Palatinase 13.8 Lvl) [id number] 13:21:00 Test Item Value Reference Range Interpretation Comments Potassium WB (test code = Potassium WB) 5.1 3.5-5.1 [place] [id number] 13:21:00 Test Item Value Reference Range Interpretation Comments S Preg (test code = S Negative 8*NA*(01/21/21 Preg) 8:21 AM) [facility][id number] 13:21:00 Test Item Value Reference Range Interpretation Comments Potassium WB (test code = Potassium WB) 5.1 3.5-5.1 [place] [id number] 13:21:00 Test Item Value Reference Range Interpretation Comments S Preg (test code = S Negative 8*NA*(01/21/21 Preg) 8:21 AM) [id number] 13:21:00 Test Item Value Reference Range Interpretation Comments Potassium WB (test code = Potassium WB) 5.1 3.5-5.1 [place] [id number] 13:21:00 Test Item Value Reference Range Interpretation Comments S Preg (test code = S Negative 8*NA*(01/21/21 Preg) 8:21 AM) [facility]IhoifwqUZNZAAPCERHE0004-93-01 13:21:00 Test Item Value Reference Range Interpretation Comments Potassium WB (test code = Potassium WB) 5.1 3.5-5.1 [place] [id number] 13:21:00 Test Item Value Reference Range Interpretation Comments S Preg (test code = S Negative 8*NA*(01/21/21 Preg) 8:21 AM) [facility]KitbgqhAIFUWDYXACVA9086-49-07 13:21:00 Test Item Value Reference Range Interpretation Comments Potassium WB (test code = Potassium WB) 5.1 3.5-5.1 [facility]YVPNUONGTCBYV3497-22-29 13:21:00 Test Item Value Reference Range Interpretation Comments S Preg (test code = S Negative 8*NA*(01/21/21 Preg) 8:21 AM) [facility]ImdlvdoEZJNYFVXIR0008-85-02 11:19:00 Test Item Value Reference Range Interpretation Comments Coronavirus (COVID-19) Not Detected (01/21/21 EMANUEL (test code = 6:19 AM) Coronavirus (COVID-19) EMANUEL) [facility]wXXEXEMGBDN0862-65-35 11:19:00 Test Item Value Reference Range Interpretation Comments Coronavirus (COVID-19) Not Detected (01/21/21 EMANUEL (test code = 6:19 AM) Coronavirus (COVID-19) EMANUEL) [facility] HospitalXnklaeoPZXBPAJFOC1781-56-06 11:19:00 Test Item Value Reference Range Interpretation Comments Coronavirus (COVID-19) Not Detected (01/21/21 EMANUEL (test code = 6:19 AM) Coronavirus (COVID-19) EMANUEL) [facility] HospitalBxieqdaQEAYWFNOXQ1992-85-50 11:19:00 Test Item Value Reference Range Interpretation Comments Coronavirus (COVID-19) Not Detected (01/21/21 EMANUEL (test code = 6:19 AM) Coronavirus (COVID-19) EMANUEL) [facility] HospitalUbjvvqeIZKISDBGQZ8863-29-96 11:19:00 Test Item Value Reference Range Interpretation Comments Coronavirus (COVID-19) Not Detected (01/21/21 EMANUEL (test code = 6:19 AM) Coronavirus (COVID-19) EMANUEL) [facility] Epogcoa7968-50-61 16:39:05 Test Item Value Reference Range Interpretation Comments Glucose POC (test 183 mg/dL 70-115 H If you con time recorder your code = Glucose POC) patient critically ill, the Merlin-Accu Check Infrom II meter should not be used for Glucose determination. Draw a venous Glucose and send to the main Lab for analysis. Urine Xggwjma6621-48-96 11:32:13 Test Item Value Reference Range Interpretation [...] Escherichia coli C Urine Added by GL_SJM_UA_CUL_INDPOC Ojuxung4263-70-52 07:52:10 Test Item Value Reference Range Interpretation Comments Glucose POC (test 160 mg/dL 70-115 H If you con time recorder your code = Glucose POC) patient critically ill, the Merlin-Accu Check Infrom II meter should not be used for Glucose determination. Draw a venous Glucose and send to the main Lab for analysis. POC Vadhlon7686-39-07 19:32:05 Test Item Value Reference Range Interpretation Comments Glucose POC (test 184 mg/dL 70-115 H If you con time recorder your code = Glucose POC) patient critically ill, the Merlin-Accu Check Infrom II meter should not be used for Glucose determination. Draw a venous Glucose and send to the main Lab for analysis. POC Sarjohl0840-40-68 17:16:35 Test Item Value Reference Range Interpretation Comments Glucose POC (test 281 mg/dL 70-115 H Notify RN or MDIf you code = Glucose POC) consider your patient critically ill, the Merlin-Accu Chec k Infrom II meter should not be used for Glucos e determination. Draw a venous Glucose and send to the main Lab for analysis. POC Mznfoaz3204-34-09 12:00:38 Test Item Value Reference Range Interpretation Comments Glucose POC (test 138 mg/dL 70-115 H Notify RN or MDIf you code = Glucose POC) consider your patient critically ill, the Merlin-Accu Chec k Infrom II meter should not be used for Glucos e determination. Draw a venous Glucose and send to the main Lab for analysis. POC Jxmjixz3385-06-08 07:41:32 Test Item Value Reference Range Interpretation Comments Glucose POC (test 206 mg/dL 70-115 H Notify RN or MDIf you code = Glucose POC) consider your patient critically ill, the Merlin-Accu Chec k Infrom II meter should not be used for Glucos e determination. Draw a venous Glucose and send to the main Lab for analysis. Urinalysis Gvksljvpbzd5514-58-42 21:07:21 Test Item Value Reference Range Interpretation Comments UA WBC (test code = UA WBC) TNTC 0-5 A UA RBC (test code = UA RBC) 6-10 0-5 A UA Bacteria (test code = UA Bacteria) Profuse A UA Squam Epithelial (test code = UA 6-10 A Squam Epithelial) Urinalysis with Culture, if jasldtped2262-23-78 20:35:14 Test Item Value Reference Range Interpretation [...] Micro Indicated Not Indicated A Ind?) POC [id number] 19:06:34 Test Item Value Reference Range Interpretation Comments Glucose POC (test 207 mg/dL 70-115 H If you con time recorder your code = Glucose POC) patient critically ill, the Merlin-Accu Check Infrom II meter should not be used for Glucose determination. Draw a venous Glucose and send to the main Lab for analysis. POC Qqjboee9933-85-73 17:12:03 Test Item Value Reference Range Interpretation Comments Glucose POC (test 173 mg/dL 70-115 H Notify RN or MDIf you code = Glucose POC) consider your patient critically ill, the Merlin-Accu Chec k Infrom II meter should not be used for Glucos e determination. Draw a venous Glucose and send to the main Lab for analysis. POC Aavbnta4867-49-66 11:58:01 Test Item Value Reference Range Interpretation Comments Glucose POC (test 289 mg/dL 70-115 H Notify RN or MDIf you code = Glucose POC) consider your patient critically ill, the Merlin-Accu Chec k Infrom II meter should not be used for Glucos e determination. Draw a venous Glucose and send to the main Lab for analysis. POC Xkchquk5580-96-88 08:19:37 Test Item Value Reference Range Interpretation Comments Glucose POC (test 201 mg/dL 70-115 H Notify RN or MDIf you code = Glucose POC) consider your patient critically ill, the Merlin-Accu Chec k Infrom II meter should not be used for Glucos e determination. Draw a venous Glucose and send to the main Lab for analysis. POC Vwduhsv4596-94-63 20:37:35 Test Item Value Reference Range Interpretation Comments Glucose POC (test 272 mg/dL 70-115 H If you con time recorder your code = Glucose POC) patient critically ill, the Merlin-Accu Check Infrom II meter should not be used for Glucose determination. Draw a venous Glucose and send to the main Lab for analysis. POC Pgpleyq2343-20-78 17:23:05 Test Item Value Reference Range Interpretation Comments Glucose POC (test 229 mg/dL 70-115 H If you con time recorder your code = Glucose POC) patient critically ill, the Merlin-Accu Check Infrom II meter should not be used for Glucose determination. Draw a venous Glucose and send to the main Lab for analysis. POC Pzkmeit4130-03-23 12:01:01 Test Item Value Reference Range Interpretation Comments Glucose POC (test 155 mg/dL 70-115 H If you con time recorder your code = Glucose POC) patient critically ill, the Merlin-Accu Check Infrom II meter should not be used for Glucose determination. Draw a venous Glucose and send to the main Lab for analysis. POC Hwsgeoy9129-44-50 08:07:32 Test Item Value Reference Range Interpretation Comments Glucose POC (test 248 mg/dL 70-115 H If you con time recorder your code = Glucose POC) patient critically ill, the Merlin-Accu Check Infrom II meter should not be used for Glucose determination. Draw a venous Glucose and send to the main Lab for analysis. IG Dojqw1767-19-35 06:50:39 Test Item Value Reference Range Interpretation Comments IG (test code = IG) 0.7 % 0.0-5.0 IG Abs (test code = IG Abs) 0 x10 N Complete Blood Count with Hjhvernbqptg9761-50-18 06:50:38 Test Item Value Reference Range Interpretation [...] code = IPF) 0 % N Automated Duajrtmghjni9944-59-81 06:50:38 Test Item Value Reference Range Interpretation Comments Neutro Auto (test code = Neutro 50.3 % 36.0-70.0 Auto) Lymph Auto (test code = Lymph Auto) 38.6 % 12.0-44.0 Valencia Auto (test code = Valencia Auto) 7.3 % 0.0-11.0 Eos, Auto (test code = Eos, Auto) 2.4 % 0.0-7.0 Basophil Auto (test code = Basophil 0.7 % 0.0-2.0 Auto) Neutro Absolute (test code = Neutro 3.0 x10 1.6-7.4 Absolute) Lymph Absolute (test code = Lymph 2.28 x10 .50-4.60 Absolute) Valencia Absolute (test code = Valencia .43 x10 .00-1.20 Absolute) Eos Absolute (test code = Eos 0.14 x10 0.00-0.74 Absolute) Baso Absolute (test code = Baso 0.04 x10 0.00-0.21 Absolute) Basic Metabolic Gmgza1963-15-84 05:38:20 Test Item Value Reference Range Interpretation [...] = Lipemia) 0 mg/dL 8-11 Basic Metabolic [id number] 05:38:20 Test Item Value Reference Range Interpretation [...] = 0 mg/dL 8-11 Lipemia) Basic Metabolic [id number] 05:38:20 Test Item Value Reference Range Interpretation [...] code = 0 mg/dL 8-11 Lipemia) POC [id number] 20:28:33 Test Item Value Reference Range Interpretation Comments Glucose POC (test 169 mg/dL 70-115 H If you con time recorder your code = Glucose POC) patient critically ill, the Merlin-Accu Check Infrom II meter should not be used for Glucose determination. Draw a venous Glucose and send to the main Lab for analysis. POC [id number] 16:39:30 Test Item Value Reference Range Interpretation Comments Glucose POC (test 103 mg/dL 70-115 If you con time recorder your code = Glucose POC) patient critically ill, the Merlin-Accu Check Infrom II meter should not be used for Glucose determination. Draw a venous Glucose and send to the main Lab for analysis. RPR Bggywiggait1993-06-05 12:08:56 Test Item Value Reference Range Interpretation Comments RPR Qual (test code = RPR Qual) Non-Reactive Non-Reactive Reactive Control (test code = Reactive Reactive Control) Weak Reactive Control (test Weak Reactive code = Weak Reactive Control) Non-Reactive Control (test code Non-Reactive = Non-Reactive Control) Lot # (test code = Lot #) [id number] N Expiration Dt (test code = 03-20-2021 N Expiration Dt) POC [id number] 11:52:31 Test Item Value Reference Range Interpretation Comments Glucose POC (test 250 mg/dL 70-115 H If you con time recorder your code = Glucose POC) patient critically ill, the Merlin-Accu Check Infrom II meter should not be used for Glucose determination. Draw a venous Glucose and send to the main Lab for analysis. POC Zvuaovn Test Item Value Reference Range Interpretation Comments Glucose POC (test 205 mg/dL 70-115 H If you con time recorder your code = Glucose POC) patient critically ill, the Merlin-Accu Check Infrom II meter should not be used for Glucose determination. Draw a venous Glucose and send to the main Lab for analysis. Lipid [id number] 05:46:04 Test Item Value Reference Range Interpretation [...] LDL/HDL Ratio=L DL Calc/HDL Chol Thyroid Stimulating [id number] 05:46:04 Test Item Value Reference Range Interpretation Comments TSH (test code = TSH) 3.274 mcIU/mL 0.550-4.780 Hemoglobin [id number] 05:41:08 Test Item Value Reference Range Interpretation Comments Hemoglobin A1c (test code 7.6 % 4.0-5.8 H Di abetic >=6.5 = Hemoglobin A1c) %Prediabet es 5.7-6.4 %Normal <5.7 % Hepatitis B Surface [id number] 21:19:36 Test Item Value Reference Range Interpretation Comments Hep Bs Ag (test code = Hep Bs Non-Reactive Non-Reactive Ag) Novel Coronavirus SARS-CoV-2, [id number] 11:16:16 Test Item Value Reference Range Interpretation [...] Emergency Use Authorization." Novel Coronavirus (COVID-19), EMANUEL [id number] 11:11:24TNPTest not sent and performed at [facility].Rapid was perfomed in Microbiology.Wrong covid test was ord ered.Urine DOA [id number] 00:17:49 Test Item Value Reference Range Interpretation [...] Propoxyphene Confirmation wi thin 7 days. Alcohol [id number] 00:17:29 Test Item Value Reference Range Interpretation Comments Ethanol Level 9.0 mg/dL N The pharmacolo gical (test code = response to blo od alcohol Ethanol Level) levels may va ry from individual to i ndividual. The fatal omkar ntration has been report ed to be >400 mg/dl. Comprehensive Metabolic [id number] 00:17:28 Test Item Value Reference Range Interpretation [...] = Lipemia) 0 g/dL 1-2 Comprehensive Metabolic [id number] 00:17:28 Test Item Value Reference Range Interpretation [...] = 0 g/dL 1-2 Lipemia) Comprehensive Metabolic [id number] 00:17:28 Test Item Value Reference Range Interpretation [...] not provided, and t he patient is -Yulite n, multiply by 1.2 12. If sex [...] g/dL 1-2 Lipemia) Complete Blood Count with Ddlewfsgplee4242-01-98 23:26:28 Test Item Value Reference Range Interpretation [...] code = IPF) 0 % N Automated Wysnrtjwlvle2508-09-00 23:26:28 Test Item Value Reference Range Interpretation Comments Neutro Auto (test code = Neutro 67.1 % 36.0-70.0 Auto) Lymph Auto (test code = Lymph Auto) 23.3 % 12.0-44.0 Valencia Auto (test code = Valencia Auto) 5.8 % 0.0-11.0 Eos, Auto (test code = Eos, Auto) 2.3 % 0.0-7.0 Basophil Auto (test code = Basophil 0.8 % 0.0-2.0 Auto) Neutro Absolute (test code = Neutro 6.0 x10 1.6-7.4 Absolute) Lymph Absolute (test code = Lymph 2.10 x10 .50-4.60 Absolute) Valencia Absolute (test code = Valencia .52 x10 .00-1.20 Absolute) Eos Absolute (test code = Eos 0.21 x10 0.00-0.74 Absolute) Baso Absolute (test code = Baso 0.07 x10 0.00-0.21 Absolute) IG [id number] 23:26:28 Test Item Value Reference Range Interpretation Comments IG (test code = IG) 0.7 % 0.0-5.0 IG Abs (test code = IG Abs) 0 x10 N HERPES VIRUS ANTIBODY, [id number] 21:46:00 Test Item Value Reference Range Interpretation Comments HERPES VIRUS IGM (AKER) Negative SE E ATTACHMENT (test code = 1808) BLOOD [id number] 06:00:00 Test Item Value Reference Range Interpretation Comments CULTURE (BEAKER) (test No growth in 5 days code = 1095) BLOOD [id number] 06:00:00 Test Item Value Reference Range Interpretation Comments CULTURE (BEAKER) (test No growth in 5 days code = 1095) POCT-GLUCOSE [id number] 12:11:00 Test Item Value Reference Range Interpretation Comments POC-GLUCOSE METER 154 mg/dL 70-110 H TESTED AT [place] [address] ([facility]) (test code = [facility] 1538) [address] POCT-GLUCOSE [id number] 07:53:00 Test Item Value Reference Range Interpretation Comments POC-GLUCOSE METER 87 mg/dL 70-110 TESTED AT [place] [address] ([facility]) (test code = [facility] [address] 1538) POCT-GLUCOSE [id number] 06:49:00 Test Item Value Reference Range Interpretation Comments POC-GLUCOSE METER 79 mg/dL 70-110 TESTED AT [place] [address] ([facility]) (test code = [facility] [address] 1538) COMPREHENSIVE METABOLIC [id number] 06:15:00 Test Item Value Reference Range Interpretation Comments TOTAL PROTEIN 5.1 gm/dL 6.0-8.3 L (AKER) (test code = 770) ALBUMIN (AKER) 2.2 g/dL 3.5-5.0 L (test code = [...] S NOT APPLICABLE FOR DIALYSIS PATIEN TS. [id number] 06:11:00 Test Item Value Reference Range Interpretation Comments MAGNESIUM (BEAKER) (test code = 2.1 mg/dL 1.6-2.6 627) HEPATIC FUNCTION [id number] 06:11:00 Test Item Value Reference Range Interpretation [...] code = 513 U/L 6-55 H 347) [id number] 05:30:00 Test Item Value Reference Range Interpretation Comments FIBRINOGEN LEVEL (BEAKER) (test 368 mg/dl 225-434 code = 658) [id number] 05:30:00 Test Item Value Reference Range Interpretation Comments PARTIAL THROMBOPLASTIN TIME 42.2 seconds 22.5-36.0 H ([facility]) (test code = 760) PROTHROMBIN TIME/[id number] 05:29:00 Test Item Value Reference Range Interpretation Comments PROTIME ([facility]) (test code = 14.8 seconds 11.7-14.7 H 759) INR ([facility]) (test code = 370) 1.2 <=5.9 RECOMMENDED COUMADIN/WARFARIN INR THERAPY RANGESSTANDARD DOSE: 2.0 - 3.0 Includes: PROPHYLAXIS for venous thrombosis, systemic embolization; TREATMENT for venous thrombosis and/or pulmonary embolus.HIGH RISK: Target INR is 2.5-3.5 for patients with mechanical heart valves.POCT-GLUCOSE [id number] 21:09:00 Test Item Value Reference Range Interpretation Comments POC-GLUCOSE METER 178 mg/dL 70-110 H TESTED AT [place] [address] ([facility]) (test code = [facility] 1538) [address] POCT-GLUCOSE [id number] 17:18:00 Test Item Value Reference Range Interpretation Comments POC-GLUCOSE METER 178 mg/dL 70-110 H TESTED AT [place] [address] ([facility]) (test code = [place] [facility] 1538) [address] POCT-GLUCOSE [id number] 13:48:00 Test Item Value Reference Range Interpretation Comments POC-GLUCOSE METER 150 mg/dL 70-110 H TESTED AT [place] [address] ([facility]) (test code = [place] [facility] 1538) [address] FACTOR 5 ACTIVITY (BLEEDING RISK)2017-01-06 10:04:00 Test Item Value Reference Range Interpretation Comments FACTOR V ACTIVITY ([facility]) (test code 90.0 % 60.0-150.0 = 665) Effective 10/24/2013: Reference Range Change-Adult onlyNew: 60.0-150.0 Previous: 50.0-150.0CYTOMEGALOVIRUS ANTIBODY, [id number] 09:42:00 Test Item Value Reference Range Interpretation Comments CYTOMEGALOVIRUS IGM ANTIBODY Negative ([facility]) (test code = 816) HERPES VIRUS ANTIBODY, [id number] 08:59:00 Test Item Value Reference Range Interpretation Comments 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 G 1807) CYTOMEGALOVIRUS ANTIBODY, [id number] 08:59:00 Test Item Value Reference Range Interpretation Comments CYTOMEGALOVIRUS IGG ANTIBODY Positive (BEAKER) (test code = 790) EBV-VCA ANTIBODY, [id number] 08:59:00 Test Item Value Reference Range Interpretation Comments JASE-WALL VCA IGG (BEAKER) (test Positive code = 983) EBV-VCA ANTIBODY, [id number] 08:59:00 Test Item Value Reference Range Interpretation Comments JASE-WALL VCA IGM (BEAKER) (test Negative code = 984) POCT-GLUCOSE [id number] 07:59:00 Test Item Value Reference Range Interpretation Comments POC-GLUCOSE METER 81 mg/dL 70-[address] [facility] 6720 (BEAKER) (test code = [place] [address] 0808) COMPREHENSIVE METABOLIC [id number] 06:23:00 Test Item Value Reference Range Interpretation [...] S NOT APPLICABLE FOR DIALYSIS PATIEN TS. [id number] 06:17:00 Test Item Value Reference Range Interpretation Comments MAGNESIUM (BEAKER) (test code = 1.8 mg/dL 1.6-2.6 627) HEPATIC FUNCTION [id number] 06:17:00 Test Item Value Reference Range Interpretation [...] code = 779 U/L 6-55 H 347) [id number] 06:00:00 Test Item Value Reference Range Interpretation Comments FIBRINOGEN LEVEL (BEAKER) (test 390 mg/dl 225-434 code = 658) [id number] 06:00:00 Test Item Value Reference Range Interpretation Comments PARTIAL THROMBOPLASTIN TIME 40.2 seconds 22.5-36.0 H (BEAKER) (test code = 760) PROTHROMBIN [id number] 05:59:00 Test Item Value Reference Range Interpretation Comments PROTIME (BEAKER) (test code = 14.6 seconds 11.7-14.7 759) INR (BEAKER) (test code = 370) 1.2 <=5.9 RECOMMENDED COUMADIN/WARFARIN INR THERAPY RANGESSTANDARD DOSE: 2.0 - 3.0 Includes: PROPHYLAXIS for venous thrombosis, systemic embolization; TREATMENT for venous thrombosis and/or pulmonary embolus.HIGH RISK: Target INR is 2.5-3.5 for patients with mechanical heart valves.POCT-GLUCOSE [id number] 21:46:00 Test Item Value Reference Range Interpretation Comments POC-GLUCOSE METER 153 mg/dL 70-110 H TESTED AT [place] [address] ([facility]) (test code = [facility] 1538) [address] POCT-GLUCOSE [id number] 18:47:00 Test Item Value Reference Range Interpretation Comments POC-GLUCOSE METER 181 mg/dL 70-110 H TESTED AT [place] [address] ([facility]) (test code = [facility] 1538) [address] POCT-GLUCOSE [id number] 12:40:00 Test Item Value Reference Range Interpretation Comments POC-GLUCOSE METER 178 mg/dL 70-110 H TESTED AT [place] [address] ([facility]) (test code = [facility] 1538) [address] POCT-GLUCOSE [id number] 07:51:00 Test Item Value Reference Range Interpretation Comments POC-GLUCOSE METER 166 mg/dL 70-110 H TESTED AT [place] [address] ([facility]) (test code = [facility] 1538) [address] COMPREHENSIVE METABOLIC [id number] 03:26:00 Test Item Value Reference Range Interpretation Comments TOTAL PROTEIN 5.2 gm/dL 6.0-8.3 L ([facility]) (test code = 770) ALBUMIN (BEAKER) 2.3 [...] S NOT APPLICABLE FOR DIALYSIS PATIEN TS. [id number] 03:22:00 Test Item Value Reference Range Interpretation Comments MAGNESIUM (BEAKER) (test code = 1.4 mg/dL 1.6-2.6 L 627) HEPATIC FUNCTION [id number] 03:22:00 Test Item Value Reference Range Interpretation [...] code = 1009 U/L 6-55 H 347) [id number] 03:12:00 Test Item Value Reference Range Interpretation Comments AMMONIA (BEAKER) (test code = 348) 29 mol/L 18-72 [id number] 03:10:00 Test Item Value Reference Range Interpretation Comments PARTIAL THROMBOPLASTIN TIME 42.3 seconds 22.5-36.0 H (BEAKER) (test code = 760) PROTHROMBIN TIME/[id number] 03:09:00 Test Item Value Reference Range Interpretation Comments PROTIME (BEAKER) (test code = 16.4 seconds 11.7-14.7 H 759) INR (BEAKER) (test code = 370) 1.3 <=5.9 RECOMMENDED COUMADIN/WARFARIN INR THERAPY RANGESSTANDARD DOSE: 2.0 - 3.0 Includes: PROPHYLAXIS for venous thrombosis, systemic embolization; TREATMENT for venous thrombosis and/or pulmonary embolus.HIGH RISK: Target INR is 2.5-3.5 for patients with mechanical heart valves.[id number] 03:09:00 Test Item Value Reference Range Interpretation Comments FIBRINOGEN LEVEL (BEAKER) (test 413 mg/dl 225-434 code = 658) CBC W/PLT COUNT & AUTO [id number] 03:09:00 Test Item Value Reference Range Interpretation [...] L 0.00-0.20 (test code = 417) 0.00POCT-GLUCOSE [id number] 22:33:00 Test Item Value Reference Range Interpretation Comments POC-GLUCOSE METER 230 mg/dL 70-110 H TESTED AT [place] [address] ([facility]) (test code = [facility] 1538) [address] POCT-GLUCOSE [id number] 18:17:00 Test Item Value Reference Range Interpretation Comments POC-GLUCOSE METER 222 mg/dL 70-110 H TESTED AT [place] [address] ([facility]) (test code = [facility] 1538) [address] COMPREHENSIVE METABOLIC [id number] 16:59:00 Test Item Value Reference Range Interpretation [...] PATIEN TS. PERIPHERAL BLOOD SMEAR - PATHOLOGIST [id number] 15:30:00 Test Item Value Reference Range Interpretation Comments RBC MORPHOLOGY Polychromasia (BEAKER) (test code = 2846) RBC MORPHOLOGY Anisocytosis (BEAKER) (test code = 32598) PERIPHERAL SMR REVIEW Cell counts confirmed (BEAKER) (test code = 2640) [id number] Josefina Lara M.D. (BEAKER) (test code = (electronic signature) 0990) PROTHROMBIN [id number] 15:12:00 Test Item Value Reference Range Interpretation [...] Negative Negative (test code = 418) POCT-GLUCOSE [id number] 12:47:00 Test Item Value Reference Range Interpretation Comments POC-GLUCOSE METER 212 mg/dL 70-[address] [facility] 67 ([facility]) (test code = [place] 1538) [id number] 12:34:00 Test Item Value Reference Range Interpretation Comments RPR SCREEN ([facility]) (test code = Nonreactive Nonreactive 420) CLOSTRIDIUM DIFFICILE TOXIN [id number] 10:12:00 Test Item Value Reference Range Interpretation Comments CLOSTRIDIUM DIFFICILE TOXIN, PCR Not Detected Not Detected ([facility]) (test code = 1525) This qualitative [...] Reference Range Change-Adult onlyNew: 60.0-150.0 Previous: 50.0-150.0POCT-GLUCOSE [id number] 06:40:00 Test Item Value Reference Range Interpretation Comments POC-GLUCOSE METER 167 mg/dL 70-[address] [facility] 6720 (BEAKER) (test code = [place] 1538) [address] COMPREHENSIVE METABOLIC [id number] 04:08:00 Test Item Value Reference Range Interpretation [...] ESTIM ATED GFR. Specimen slightly ictericHEPATIC FUNCTION [id number] 04:06:00 Test Item Value Reference Range Interpretation [...] 1091 U/L 6-55 H 347) Specimen slightly mrfevoeZZBAQBWLPU1905-78-31 04:01:00 Test Item Value Reference Range Interpretation Comments FIBRINOGEN LEVEL (BEAKER) (test 379 mg/dl 225-434 code = 658) [id number] 04:01:00 Test Item Value Reference Range Interpretation Comments PARTIAL THROMBOPLASTIN TIME 40.7 seconds 22.5-36.0 H (BEAKER) (test code = 760) PROTHROMBIN [id number] 04:00:00 Test Item Value Reference Range Interpretation [...] mechanical heart valves.CBC W/PLT COUNT & AUTO [id number] 03:56:00 Test Item Value Reference Range Interpretation [...] L 0.00-0.20 (test code = 417) 0.00POCT-GLUCOSE [id number] 00:19:00 Test Item Value Reference Range Interpretation Comments POC-GLUCOSE METER 159 mg/dL 70-110 H TESTED AT [place] [address] ([facility]) (test code = [facility] [place] 1538) [address] POCT-GLUCOSE [id number] 18:56:00 Test Item Value Reference Range Interpretation Comments POC-GLUCOSE METER 192 mg/dL 70-[address] [facility] 6720 ([facility]) (test code = [facility] [place] 1538) [address] COMPREHENSIVE METABOLIC [id number] 16:55:00 Test Item Value Reference Range Interpretation [...] CALCULATE ESTIM ATED GFR. Specimen slightly ictericPROTHROMBIN [id number] 16:37:00 Test Item Value Reference Range Interpretation Comments PROTIME (BEAKER) (test code = 20.9 seconds 11.7-14.7 H 759) INR (BEAKER) (test code = 370) 1.8 <=5.9 RECOMMENDED COUMADIN/WARFARIN INR THERAPY RANGESSTANDARD DOSE: 2.0 - 3.0 Includes: PROPHYLAXIS for venous thrombosis, systemic embolization; TREATMENT for venous thrombosis and/or pulmonary embolus.HIGH RISK: Target INR is 2.5-3.5 for patients with mechanical heart valves.HEPATITIS B SURFACE [id number] 14:05:00 Test Item Value Reference Range Interpretation Comments HEPATITIS B SURFACE ANTIBODY < mIU/mL <8.0 (BEAKER) (test code = 647) HEPATITIS B CORE ANTIBODY, [id number] 13:43:00 Test Item Value Reference Range Interpretation Comments HEPATITIS B CORE TOTAL ANTIBODY Nonreactive Nonreactive (BEAKER) (test code = 497) BLOOD GAS, [id number] 13:35:00 Test Item Value Reference Range Interpretation [...] code = 1819) 28.0 % URINALYSIS W/ [id number] 13:16:00 Test Item Value Reference Range Interpretation [...] 1584) SOURCE(BEAKER) (test code = Urine, [place] [address]) VITAMIN D, 37-[id number] 13:14:00 Test Item Value Reference Range Interpretation Comments VITAMIN D 25-OH (BEAKER) (test code = < ng/mL 13.0-47.8 L 2764) ALPHA FETOPROTEIN (AFP), TUMOR [id number] 13:06:00 Test Item Value Reference Range Interpretation Comments ALPHA-FETOPROTEIN (BEAKER) (test code < ng/mL <10.0 = 1094) Effective 05/08/2014: Reference Range ChangeNew: <10.0 Previous: 0.0-8.0 HEMOGLOBIN [id number] 13:05:00 Test Item Value Reference Range Interpretation Comments HEMOGLOBIN A1C (BEAKER) (test code = 7.6 % 4.3-6.1 H 368) CARCINOEMBRYONIC ANTIGEN (CEA)2017-01-03 12:59:00 Test Item Value Reference Range Interpretation Comments CARCINOEMBRYONIC ANTIGEN (BEAKER) 2.0 ng/mL 0.0-5.0 (test code = 685) [id number] 12:59:00 Test Item Value Reference Range Interpretation Comments FERRITIN (BEAKER) (test code = 1841 ng/mL 5-275 H 361) Effective 05/08/2014: Reference Range ChangeNew: Male 5-275 Previous: Male 22- 322 Female 5-275 Female [id number] 12:58:00 Test Item Value Reference Range Interpretation Comments T4 TOTAL (BEAKER) (test code = 895) 4.5 ug/dL 4.9-11.7 L [id number] 12:58:00 Test Item Value Reference Range Interpretation Comments THYROID STIMULATING HORMONE 1.79 uIU/mL 0.35-4.94 (BEAKER) (test code = 772) [id number] 12:58:00 Test Item Value Reference Range Interpretation Comments T3 TOTAL (BEAKER) (test code = 656) 34 ng/dL 48-159 L Effective 05/08/2014: Reference Range ChangeNew: 48-159 Previous: 60-181CALCIUM, [id number] 12:47:00 Test Item Value Reference Range Interpretation Comments CALCIUM IONIZED (BEAKER) (test 1.05 mmol/L 1.12-1.27 L code = 698) PH, BLOOD (BEAKER) (test code = 7.43 1810) [id number] 12:42:00 Test Item Value Reference Range Interpretation [...] % 20-55 (test code = 2590) URIC [id number] 12:40:00 Test Item Value Reference Range Interpretation Comments URIC ACID (BEAKER) (test code = 16.0 mg/dL 2.6-7.2 H 773) Specimen slightly ictericLIPID [id number] 12:40:00 Test Item Value Reference Range Interpretation [...] 160-189 Very High >=190 Specimen slightly ictericBILIRUBIN, [id number] 12:40:00 Test Item Value Reference Range Interpretation Comments BILIRUBIN DIRECT (BEAKER) (test 2.4 mg/dL 0.1-0.5 H code = 706) GAMMA GLUTAMYL TRANSFERASE (GGT)2017-01-03 12:40:00 Test Item Value Reference Range Interpretation Comments GAMMA GLUTAMYL TRANSFERASE (MADIE) 53 U/L 9-64 (test code = 364) Specimen slightly [id number] 12:39:00 Test Item Value Reference Range Interpretation Comments ETHANOL (MADIE) (test code = 400) < mg/dL <=10 SCREEN, [id number] 12:36:00 Test Item Value Reference Range Interpretation Comments TEST URINE (MADIE) (test Negative code = 583) POCT-GLUCOSE [id number] 12:34:00 Test Item Value Reference Range Interpretation Comments POC-GLUCOSE METER 189 mg/dL 70-[address] [facility] 67[address] ([facility]) (test code = [place] [address]) [address] HIV-1 ANTIGEN WITH HIV-1/2 [id number] 11:58:00 Test Item Value Reference Range Interpretation Comments HIV-1 ANTIGEN WITH HIV 1\\T\\2 Nonreactive Nonreactive ANTIBODY (2) ([facility]) (test code = 2586) TROPONIN [id number] 09:44:00 Test Item Value Reference Range Interpretation [...] 0.0-4.9CK-MB Reference Range:<6.7 Normal6.7-10.0 Borderline>10.0 Abnormal ACETAMINOPHEN [id number] 08:31:00 Test Item Value Reference Range Interpretation Comments ACETAMINOPHEN LEVEL (BEAKER) (test < ug/mL 10.0-30.0 L code = 344) TROPONIN [id number] 05:53:00 Test Item Value Reference Range Interpretation [...] acute neurological disease, and persistent tachyarrhythmia.BASIC METABOLIC [id number] 05:53:00 Test Item Value Reference Range Interpretation [...] TO CALCULA TE ESTIMATED GFR. Specimen slightly [id number] 05:52:00 Test Item Value Reference Range Interpretation Comments PHOSPHORUS (BEAKER) (test code = 5.7 mg/dL 2.3-4.7 H 604) HEPATIC FUNCTION [id number] 05:52:00 Test Item Value Reference Range Interpretation [...] Specimen slightly ictericCREATINE KINASE (CK), TOTAL AND [id number] 05:52:00 Test Item Value Reference Range Interpretation Comments CREATINE KINASE TOTAL (BEAKER) 341 U/L 29-200 H (test code = 380) CREATINE KINASE-MB (BEAKER) (test 5.4 ng/mL 0.0-6.6 code = 750) CREATINE KINASE-MB INDEX (BEAKER) 1.6 % (test code = 395) Effective 05/08/2014: CK-MB Reference Range ChangeNew: 0.0-6.6 Previous: 0.0-4.9CK-MB Reference Range:<6.7 Normal6.7-10.0 Borderline>10.0 Abnormal CBC W/PLT COUNT & AUTO [id number] 05:48:00 Test Item Value Reference Range Interpretation [...] K/ L 0.00-0.20 (test code = 417) 0.80SKPBGARUIP0697-61-17 05:09:00 Test Item Value Reference Range Interpretation Comments FIBRINOGEN LEVEL (BEAKER) (test 427 mg/dl 225-434 code = 658) [id number] 05:09:00 Test Item Value Reference Range Interpretation Comments PARTIAL THROMBOPLASTIN TIME 36.2 seconds 22.5-36.0 H (BEAKER) (test code = 760) PROTHROMBIN TIME/[id number] 05:08:00 Test Item Value Reference Range Interpretation Comments PROTIME (BEAKER) (test code = 22.8 seconds 11.7-14.7 H 759) INR (BEAKER) (test code = 370) 2.0 <=5.9 RECOMMENDED COUMADIN/WARFARIN INR THERAPY RANGESSTANDARD DOSE: 2.0 - 3.0 Includes: PROPHYLAXIS for venous thrombosis, systemic embolization; TREATMENT for venous thrombosis and/or pulmonary embolus.HIGH RISK: Target INR is 2.5-3.5 for patients with mechanical heart valves.HEPATITIS PANEL, [id number] 03:40:00 Test Item Value Reference Range Interpretation Comments HEPATITIS A IGM ANTIBODY (BEAKER) Nonreactive Nonreactive (test code = 498) HEPATITIS B CORE IGM ANTIBODY Nonreactive Nonreactive (BEAKER) (test code = 645) HEPATITIS C ANTIBODY (BEAKER) Nonreactive Nonreactive (test code = 367) HEPATITIS B SURFACE ANTIGEN (2) Nonreactive Nonreactive (BEAKER) (test code = 2585) CREATININE, RANDOM [id number] 03:18:00 Test Item Value Reference Range Interpretation Comments CREATININE URINE (BEAKER) (test 118.7 mg/dL code = 375) Reference Range: No NormalsSODIUM, RANDOM [id number] 03:18:00 Test Item Value Reference Range Interpretation Comments SODIUM URINE (BEAKER) (test code = 60 meq/L 243) Reference Range: No NormalsUREA NITROGEN, RANDOM [id number] 03:18:00 Test Item Value Reference Range Interpretation Comments UREA NITROGEN URINE (BEAKER) (test 303 mg/dL code = 538) Reference Range: No [id number] 03:07:00 Test Item Value Reference Range Interpretation Comments AMMONIA (BEAKER) (test code = 348) 48 mol/L 18-72 [id number]-[id number] 02:57:00 Test Item Value Reference Range Interpretation [...] within 95-100% range. URINALYSIS W/ REFLEX URINE [id number] 02:53:00 Test Item Value Reference Range Interpretation [...] /LPF = 514) SOURCE(BEAKER) (test code = 2901) [id number] 02:49:00 Test Item Value Reference Range Interpretation Comments PARTIAL THROMBOPLASTIN TIME 39.4 seconds 22.5-36.0 H (BEAKER) (test code = 760) PROTHROMBIN TIME/[id number] 02:48:00 Test Item Value Reference Range Interpretation Comments PROTIME (BEAKER) (test code = 22.0 seconds 11.7-14.7 H 759) INR (BEAKER) (test code = 370) 1.9 <=5.9 RECOMMENDED COUMADIN/WARFARIN INR THERAPY RANGESSTANDARD DOSE: 2.0 - 3.0 Includes: PROPHYLAXIS for venous thrombosis, systemic embolization; TREATMENT for venous thrombosis and/or pulmonary embolus.HIGH RISK: Target INR is 2.5-3.5 for patients with mechanical heart valves.[id number] 02:48:00 Test Item Value Reference Range Interpretation Comments FIBRINOGEN LEVEL (BEAKER) (test 421 mg/dl 225-434 code = 658) BLOOD GAS, [id number] 02:43:00 Test Item Value Reference Range Interpretation [...] 21.0 % CBC W/PLT COUNT & AUTO [id number] 02:43:00 Test Item Value Reference Range Interpretation [...] code = 417) 0.00LACTIC ACID, VENOUS, WHOLE [id number] 02:35:00 Test Item Value Reference Range Interpretation Comments LACTATE BLOOD VENOUS (2) (BEAKER) 0.8 mmol/L 0.5-2.2 (test code = 2872) Effective 10/23/2015: Units/Reference Range ChangeNew: 0.5-2.2 mmol/L Previous: 5- 20 mg/dLSpecimen slightly auksizqJSLULFXDHNVN0047-20-74 11:32:00 Test Item Value Reference Range Interpretation Comments AGAP (test code = AGAP) 14.6 10.0-20.0 [facility]SiqmyeuMWANFPLMCTOQ0095-09-10 11:32:00 Test Item Value Reference Range Interpretation Comments eGFR (test code = eGFR) 33 [facility]QylmaxmDQTCMOBXVAZS4049-63-65 11:32:00 Test Item Value Reference Range Interpretation Comments Calcium Lvl (test code = Calcium Lvl) 8.3 8.5-10.5 [facility] HospitalFwbnrevZMWMUTJGQEEP6633-36-47 11:32:00 Test Item Value Reference Range Interpretation Comments Glucose Lvl (test code = Glucose Lvl) 81 70-99 [facility] HospitalXkhbffkFHPZHDDRGIIH5407-57-10 11:32:00 Test Item Value Reference Range Interpretation Comments Creatinine Lvl (test code = Creatinine 1.95 0.50-1.40 Lvl) [facility] HospitalGoivjylBYXTOOWTBIQI2758-47-24 11:32:00 Test Item Value Reference Range Interpretation Comments BUN (test code = BUN) 55 7-22 [facility] HospitalMttwjhyLPFOOLFIWENF1129-23-49 11:32:00 Test Item Value Reference Range Interpretation Comments CO2 (test code = CO2) 19 24-32 [facility] HospitalBluagwtDBAAOZCBXCGA5750-23-84 11:32:00 Test Item Value Reference Range Interpretation Comments Chloride Lvl (test code = Chloride Lvl) 110 95-109 [facility] HospitalMxccjcxGEGLXLFKYHQY6689-31-28 11:32:00 Test Item Value Reference Range Interpretation Comments Sodium Lvl (test code = Sodium Lvl) 139 135-145 [facility] HospitalVasileqTGIPGHVMVFIF6565-12-99 11:32:00 Test Item Value Reference Range Interpretation Comments Potassium Lvl (test code = Potassium 4.6 3.5-5.1 Lvl) [facility]WtjngwsAZGQFYYMGT0375-63-20 11:32:00 Test Item Value Reference Range Interpretation Comments Lymphocytes (test code = Lymphocytes) 30.4 20.0-40.0 [facility] HospitalGnyywkiDYIOOCUJPM5301-76-66 11:32:00 Test Item Value Reference Range Interpretation Comments Eosinophils (test code = 4.5 See_Comment [A utomated message] The Eosinophils) system which ge nerated this result tra nsmitted reference range : <=4.0. The reference r leo was not used to int erpret this result as normal/abnormal . [facility] HospitalVnpprqvNEVJSWZAJB9626-04-17 11:32:00 Test Item Value Reference Range Interpretation Comments Monocytes (test code = Monocytes) 13.7 2.0-12.0 [facility] HospitalNzmazvxTQVJLCVGJR2480-27-81 11:32:00 Test Item Value Reference Range Interpretation Comments Segs-Bands # (test code = Segs-Bands #) 2.6 1.5-8.1 [facility] HospitalVizjgdzCVDTGSNWCD3324-12-17 11:32:00 Test Item Value Reference Range Interpretation Comments Basophils (test code = 0.7 See_Comment [Aut omated message] The Basophils) system which ge nerated this result tra nsmitted reference range : <=1.0. The reference r leo was not used to int erpret this result as normal/abnormal . [facility] HospitalMuidafySAEUYFMYLB9170-68-26 11:32:00 Test Item Value Reference Range Interpretation Comments Monocytes # (test code 0.7 See_Comment [Aut omated message] The = Monocytes #) system which generated this result tra nsmitted reference range : <=0.8. The reference r leo was not used to int erpret this result as normal/abnormal . [facility] HospitalLrbikplVNGMGFJEAD7354-62-79 11:32:00 Test Item Value Reference Range Interpretation Comments Lymphocytes # (test code = Lymphocytes 1.6 1.0-5.5 #) [facility] HospitalCpcidawXTWYQWLCAC5067-45-84 11:32:00 Test Item Value Reference Range Interpretation Comments Eosinophils # (test code 0.2 See_Comment [A utomated message] The = Eosinophils #) system whic h generated this result tra nsmitted reference range : <=0.5. The reference r leo was not used to int erpret this result as normal/abnormal . [facility] HospitalVfvenezUMKOXMKLMM6914-17-14 11:32:00 Test Item Value Reference Range Interpretation Comments Segs (test code = Segs) 50.7 45.0-75.0 [facility] HospitalXymmyptANVKKAOOMS0636-41-53 11:32:00 Test Item Value Reference Range Interpretation [...] iron deficiency anemia, and renal disease. CPT: 28961 [facility] HospitalJlqqcfqEORTUDCQRC1353-11-09 11:32:00 Test Item Value Reference Range Interpretation Comments Hct (test code = Hct) 28.1 36.0-48.0 [facility]PpvzxngNBMMKDNLSE0775-04-06 11:32:00 Test Item Value Reference Range Interpretation Comments RBC (test code = RBC) 3.39 4.20-5.40 [facility] HospitalDeletnkZDFJQSYIJW2200-03-05 11:32:00 Test Item Value Reference Range Interpretation Comments Hgb (test code = Hgb) 8.9 12.0-16.0 [facility] HospitalQxdvghnLEHVVQVJLO6559-85-87 11:32:00 Test Item Value Reference Range Interpretation Comments WBC (test code = WBC) 5.1 3.7-10.4 [facility] HospitalJvxbqexLUCHJNBLGY2005-38-52 11:32:00 Test Item Value Reference Range Interpretation Comments MPV (test code = MPV) 11.3 7.4-10.4 [facility] HospitalHhvkzmzUDIZYYXIHW7613-52-34 11:32:00 Test Item Value Reference Range Interpretation Comments Platelet (test code = Platelet) 118 133-450 [facility] HospitalNkdmbfcJKJGAATVHL1865-33-89 11:32:00 Test Item Value Reference Range Interpretation Comments MCHC (test code = MCHC) 31.8 32.0-36.0 [facility] HospitalAlsrjurDLHAHGGEUE4570-03-40 11:32:00 Test Item Value Reference Range Interpretation Comments RDW (test code = RDW) 18.0 11.5-14.5 [facility] HospitalAlqjexnJBBUWYHTHC6318-67-70 11:32:00 Test Item Value Reference Range Interpretation Comments MCV (test code = MCV) 83.0 80.0-98.0 [facility] HospitalXfxshsgLDSHGBZOKV2367-90-52 11:32:00 Test Item Value Reference Range Interpretation Comments MCH (test code = MCH) 26.4 pg 27.0-31.0 [facility] CenterRhtihyoYVELOAGTSB7425-03-27 11:32:00 Test Item Value Reference Range Interpretation Comments C3 Complement (test code = C3 137 88-201 Complement) [facility] CenterMliajgeRCVTKYIYYI0342-21-77 11:32:00 Test Item Value Reference Range Interpretation Comments HIV. (test code = Negative *NA*(07/30/16 HIV.) 5:32 AM) [facility]AuywwtcUEKBBZMAORRY8185-07-10 11:32:00 Test Item Value Reference Range Interpretation Comments AGAP (test code = AGAP) 14.6 10.0-20.0 [facility] HospitalVaiqxmcKNSSAWLHPVMJ9236-89-00 11:32:00 Test Item Value Reference Range Interpretation Comments eGFR (test code = eGFR) 33 [facility] HospitalBzepofzSRITBZEBTLFT7302-54-10 11:32:00 Test Item Value Reference Range Interpretation Comments Calcium Lvl (test code = Calcium Lvl) 8.3 8.5-10.5 [facility] HospitalAsphpxjEZSMTVFMKFNV7266-76-19 11:32:00 Test Item Value Reference Range Interpretation Comments Glucose Lvl (test code = Glucose Lvl) 81 70-99 [facility] HospitalNrkmphgHNXDJZMGLCGR1371-89-67 11:32:00 Test Item Value Reference Range Interpretation Comments Creatinine Lvl (test code = Creatinine 1.95 0.50-1.40 Lvl) [facility] HospitalEvqhpolJKPYPAPDRJWN4828-01-87 11:32:00 Test Item Value Reference Range Interpretation Comments BUN (test code = BUN) 55 7-22 [facility] HospitalHqljljdLGKLVGRFWYSH7598-36-46 11:32:00 Test Item Value Reference Range Interpretation Comments CO2 (test code = CO2) 19 24-32 [facility] HospitalFbgidlfTSECVSZPBKHC0306-82-31 11:32:00 Test Item Value Reference Range Interpretation Comments Chloride Lvl (test code = Chloride Lvl) 110 95-109 [facility] HospitalKnquqfxKTGSPPZFUPSX9463-57-76 11:32:00 Test Item Value Reference Range Interpretation Comments Sodium Lvl (test code = Sodium Lvl) 139 135-145 [facility] HospitalKummnsuPBFUOVJKGZDI9375-14-17 11:32:00 Test Item Value Reference Range Interpretation Comments Potassium Lvl (test code = Potassium 4.6 3.5-5.1 Lvl) [facility] HospitalInfwiweCUBIACLAES4127-13-80 11:32:00 Test Item Value Reference Range Interpretation Comments Lymphocytes (test code = Lymphocytes) 30.4 20.0-40.0 [facility] HospitalDmikzlbAIEZTIDLNT2436-28-25 11:32:00 Test Item Value Reference Range Interpretation Comments Eosinophils (test code = 4.5 See_Comment [A utomated message] The Eosinophils) system which ge nerated this result tra nsmitted reference range : <=4.0. The reference r leo was not used to int erpret this result as normal/abnormal . [facility] HospitalUckrudzLAOENKNWBH3389-96-91 11:32:00 Test Item Value Reference Range Interpretation Comments Monocytes (test code = Monocytes) 13.7 2.0-12.0 [facility] HospitalHxbvaoaUWDWXZQPET4237-71-35 11:32:00 Test Item Value Reference Range Interpretation Comments Segs-Bands # (test code = Segs-Bands #) 2.6 1.5-8.1 [facility] HospitalSlhkbxzHOOHUOCVKU1995-35-67 11:32:00 Test Item Value Reference Range Interpretation Comments Basophils (test code = 0.7 See_Comment [Aut omated message] The Basophils) system which ge nerated this result tra nsmitted reference range : <=1.0. The reference r leo was not used to int erpret this result as normal/abnormal . [facility] HospitalEikckfsVEXSZWBHOB8743-32-35 11:32:00 Test Item Value Reference Range Interpretation Comments Monocytes # (test code 0.7 See_Comment [Aut omated message] The = Monocytes #) system which generated this result tra nsmitted reference range : <=0.8. The reference r leo was not used to int erpret this result as normal/abnormal . [facility] HospitalOyqfyyvYSMNLPSOOU2484-86-29 11:32:00 Test Item Value Reference Range Interpretation Comments Lymphocytes # (test code = Lymphocytes 1.6 1.0-5.5 #) [facility] HospitalPkgmdxwGKRMURSSLP5983-99-20 11:32:00 Test Item Value Reference Range Interpretation Comments Eosinophils # (test code 0.2 See_Comment [A utomated message] The = Eosinophils #) system whic h generated this result tra nsmitted reference range : <=0.5. The reference r loe was not used to int erpret this result as normal/abnormal . [facility] HospitalAzqwhdbJFBWUZJOBN3797-09-09 11:32:00 Test Item Value Reference Range Interpretation Comments Segs (test code = Segs) 50.7 45.0-75.0 [facility] HospitalLdwrrwePSOSGAZJLT6545-57-09 11:32:00 Test Item Value Reference Range Interpretation [...] iron deficiency anemia, and renal disease. CPT: 96534 [facility] HospitalQvlanveAPVBCFYKJC8384-55-55 11:32:00 Test Item Value Reference Range Interpretation Comments Hct (test code = Hct) 28.1 36.0-48.0 [facility] HospitalLoctroaNXPVNJNZKS9028-15-48 11:32:00 Test Item Value Reference Range Interpretation Comments RBC (test code = RBC) 3.39 4.20-5.40 [facility] HospitalCwkjekrGNZVUVGZYG6747-80-35 11:32:00 Test Item Value Reference Range Interpretation Comments Hgb (test code = Hgb) 8.9 12.0-16.0 [facility] HospitalFofbsipMLZVPEYXJP1320-98-49 11:32:00 Test Item Value Reference Range Interpretation Comments WBC (test code = WBC) 5.1 3.7-10.4 [facility] HospitalTgnritgTEZKQPEZCO9946-52-06 11:32:00 Test Item Value Reference Range Interpretation Comments MPV (test code = MPV) 11.3 7.4-10.4 [facility] HospitalSbdqwdzBFMTCGZSFX1845-48-94 11:32:00 Test Item Value Reference Range Interpretation Comments Platelet (test code = Platelet) 118 133-450 [facility] HospitalMyrvdijFTHTDSMAOL3498-19-93 11:32:00 Test Item Value Reference Range Interpretation Comments MCHC (test code = MCHC) 31.8 32.0-36.0 [facility] HospitalKtpeehoAAUXIWJDGS7162-67-64 11:32:00 Test Item Value Reference Range Interpretation Comments RDW (test code = RDW) 18.0 11.5-14.5 [facility] HospitalGiezyveFLSRIQQTUA6212-26-27 11:32:00 Test Item Value Reference Range Interpretation Comments MCV (test code = MCV) 83.0 80.0-98.0 [facility] HospitalDxpqvbrGBMSBNXCJJ9927-82-88 11:32:00 Test Item Value Reference Range Interpretation Comments MCH (test code = MCH) 26.4 pg 27.0-31.0 [facility] HospitalZqjsuwoXGTRRNNTOT2980-40-61 11:32:00 Test Item Value Reference Range Interpretation Comments C3 Complement (test code = C3 137 88-201 Complement) [facility] HospitalYzhzivePHPVMNDCYE9394-03-23 11:32:00 Test Item Value Reference Range Interpretation Comments HIV. (test code = Negative *NA*(07/30/16 HIV.) 5:32 AM) [facility] HospitalVfepwxzNHYAONCCGWZA2551-80-84 11:32:00 Test Item Value Reference Range Interpretation Comments AGAP (test code = AGAP) 14.6 10.0-20.0 [facility]KqvuknvYMXGBWDNPPXY8147-35-21 11:32:00 Test Item Value Reference Range Interpretation Comments eGFR (test code = eGFR) 33 [facility]TukzeztRNAMJVZZSNDL4916-37-45 11:32:00 Test Item Value Reference Range Interpretation Comments Calcium Lvl (test code = Calcium Lvl) 8.3 8.5-10.5 [facility]HomvhveCLUGGTJSSAQY2518-29-85 11:32:00 Test Item Value Reference Range Interpretation Comments Glucose Lvl (test code = Glucose Lvl) 81 70-99 [facility] HospitalStaylujHYXPPQWYGMFS0104-11-02 11:32:00 Test Item Value Reference Range Interpretation Comments Creatinine Lvl (test code = Creatinine 1.95 0.50-1.40 Lvl) [facility] HospitalYkigzadMHSOGTIGGQVV1975-54-84 11:32:00 Test Item Value Reference Range Interpretation Comments BUN (test code = BUN) 55 7-22 [facility] HospitalBiueeldDQIPJYANXUGA2697-11-41 11:32:00 Test Item Value Reference Range Interpretation Comments CO2 (test code = CO2) 19 24-32 [facility] HospitalXlemaosFKUYUPIQMASW6207-23-86 11:32:00 Test Item Value Reference Range Interpretation Comments Chloride Lvl (test code = Chloride Lvl) 110 95-109 [facility] HospitalUojgsnoYRSZREIKRSQU0110-39-13 11:32:00 Test Item Value Reference Range Interpretation Comments Sodium Lvl (test code = Sodium Lvl) 139 135-145 [facility] HospitalDuezwcaVQAPNLWHNSUC4085-17-83 11:32:00 Test Item Value Reference Range Interpretation Comments Potassium Lvl (test code = Potassium 4.6 3.5-5.1 Lvl) [facility]BovhxndNDHRDHTKMN1272-06-35 11:32:00 Test Item Value Reference Range Interpretation Comments Lymphocytes (test code = Lymphocytes) 30.4 20.0-40.0 [facility] HospitalAndzbbvKRFPBRQUNZ5539-86-89 11:32:00 Test Item Value Reference Range Interpretation Comments Eosinophils (test code = 4.5 See_Comment [A utomated message] The Eosinophils) system which ge nerated this result tra nsmitted reference range : <=4.0. The reference r leo was not used to int erpret this result as normal/abnormal . [facility] HospitalMjjhwwdZHNQRVKTPS2423-36-95 11:32:00 Test Item Value Reference Range Interpretation Comments Monocytes (test code = Monocytes) 13.7 2.0-12.0 [facility] HospitalTaftfvcGQITHWYCVZ0758-42-04 11:32:00 Test Item Value Reference Range Interpretation Comments Segs-Bands # (test code = Segs-Bands #) 2.6 1.5-8.1 [facility] HospitalVvmgoycQHJTVGMGPG9524-13-35 11:32:00 Test Item Value Reference Range Interpretation Comments Basophils (test code = 0.7 See_Comment [Aut omated message] The Basophils) system which ge nerated this result tra nsmitted reference range : <=1.0. The reference r leo was not used to int erpret this result as normal/abnormal . [facility] HospitalVbtqmynMSFFJIBRTF7761-91-05 11:32:00 Test Item Value Reference Range Interpretation Comments Monocytes # (test code 0.7 See_Comment [Aut omated message] The = Monocytes #) system which generated this result tra nsmitted reference range : <=0.8. The reference r leo was not used to int erpret this result as normal/abnormal . [facility] HospitalPeoqwjuHFOUIJHTBV7633-39-16 11:32:00 Test Item Value Reference Range Interpretation Comments Lymphocytes # (test code = Lymphocytes 1.6 1.0-5.5 #) [facility] HospitalDhkqfueFTJDVFFUUJ8207-03-17 11:32:00 Test Item Value Reference Range Interpretation Comments Eosinophils # (test code 0.2 See_Comment [A utomated message] The = Eosinophils #) system ic h generated this result tra nsmitted reference range : <=0.5. The reference r leo was not used to int erpret this result as normal/abnormal . [facility] HospitalUyqofhtYWXMQLSAIP9545-72-22 11:32:00 Test Item Value Reference Range Interpretation Comments Segs (test code = Segs) 50.7 45.0-75.0 [facility] HospitalYiomiehAMJBLXMHUJ9536-43-11 11:32:00 Test Item Value Reference Range Interpretation [...] iron deficiency anemia, and renal disease. CPT: 78154 [facility] HospitalJnrnclbCYPDTENOXM3488-07-39 11:32:00 Test Item Value Reference Range Interpretation Comments Hct (test code = Hct) 28.1 36.0-48.0 [facility] HospitalLxadkfcQBSKJLWANE8415-54-56 11:32:00 Test Item Value Reference Range Interpretation Comments RBC (test code = RBC) 3.39 4.20-5.40 [facility] HospitalEowismpLEMAERADAY2595-52-90 11:32:00 Test Item Value Reference Range Interpretation Comments Hgb (test code = Hgb) 8.9 12.0-16.0 [facility] HospitalNdgbbbeNREJBUPJCI1160-78-81 11:32:00 Test Item Value Reference Range Interpretation Comments WBC (test code = WBC) 5.1 3.7-10.4 [facility] HospitalAvhcnsuYLJOAGJHVQ0854-28-35 11:32:00 Test Item Value Reference Range Interpretation Comments MPV (test code = MPV) 11.3 7.4-10.4 [facility] HospitalKhivhcmQQRKIXZPHU8834-92-28 11:32:00 Test Item Value Reference Range Interpretation Comments Platelet (test code = Platelet) 118 133-450 [facility] HospitalQsmyjivRCVFWFLRXR5377-73-48 11:32:00 Test Item Value Reference Range Interpretation Comments MCHC (test code = MCHC) 31.8 32.0-36.0 [facility] HospitalCzkpomzNYIVDGVQPT7303-05-02 11:32:00 Test Item Value Reference Range Interpretation Comments RDW (test code = RDW) 18.0 11.5-14.5 [facility] HospitalSqjtoorWWUFFWOAEY4103-66-14 11:32:00 Test Item Value Reference Range Interpretation Comments MCV (test code = MCV) 83.0 80.0-98.0 [facility] HospitalWtezthbNVQNQXQWXJ5171-03-66 11:32:00 Test Item Value Reference Range Interpretation Comments MCH (test code = MCH) 26.4 pg 27.0-31.0 [facility] HospitalNiqbdcyVVGSTNNYMQ1838-65-60 11:32:00 Test Item Value Reference Range Interpretation Comments C3 Complement (test code = C3 137 88-201 Complement) [facility] HospitalDioaqvdHWTRAJSREI4480-91-20 11:32:00 Test Item Value Reference Range Interpretation Comments HIV. (test code = Negative *NA*(07/30/16 HIV.) 5:32 AM) [facility]XsaqmzjLMCUCXHNOXON0796-21-30 11:32:00 Test Item Value Reference Range Interpretation Comments AGAP (test code = AGAP) 14.6 10.0-20.0 [facility] HospitalAgrsuspVHIVCNVXQHMZ4505-40-03 11:32:00 Test Item Value Reference Range Interpretation Comments eGFR (test code = eGFR) 33 [facility] HospitalFdmhbhjWXANOGDEQIGE9293-92-28 11:32:00 Test Item Value Reference Range Interpretation Comments Calcium Lvl (test code = Calcium Lvl) 8.3 8.5-10.5 [facility] HospitalZskgkubWKKXQGOOAEVE8107-79-04 11:32:00 Test Item Value Reference Range Interpretation Comments Glucose Lvl (test code = Glucose Lvl) 81 70-99 [facility] HospitalYeuxzfnBGAGXINFRFKG1414-67-94 11:32:00 Test Item Value Reference Range Interpretation Comments Creatinine Lvl (test code = Creatinine 1.95 0.50-1.40 Lvl) [facility] HospitalNtplnluKZUKJBIGSLHZ6173-39-10 11:32:00 Test Item Value Reference Range Interpretation Comments BUN (test code = BUN) 55 7-22 [facility] HospitalSmigjliOYRFLZJYDZHZ1051-96-73 11:32:00 Test Item Value Reference Range Interpretation Comments CO2 (test code = CO2) 19 24-32 [facility] HospitalPqucicpWLYBLGJXFEQG3166-35-46 11:32:00 Test Item Value Reference Range Interpretation Comments Chloride Lvl (test code = Chloride Lvl) 110 95-109 [facility] HospitalXzgsczxWIBFCDUTRPTH5917-18-64 11:32:00 Test Item Value Reference Range Interpretation Comments Sodium Lvl (test code = Sodium Lvl) 139 135-145 [facility] HospitalBriurcoSCLGDVGMBAHW9030-91-17 11:32:00 Test Item Value Reference Range Interpretation Comments Potassium Lvl (test code = Potassium 4.6 3.5-5.1 Lvl) [facility] HospitalVdyuxgjDEURZDXSBV9139-62-56 11:32:00 Test Item Value Reference Range Interpretation Comments Lymphocytes (test code = Lymphocytes) 30.4 20.0-40.0 [facility] HospitalAlgpssiCXPEJYREYC0695-58-06 11:32:00 Test Item Value Reference Range Interpretation Comments Eosinophils (test code = 4.5 See_Comment [A utomated message] The Eosinophils) system which ge nerated this result tra nsmitted reference range : <=4.0. The reference r leo was not used to int erpret this result as normal/abnormal . [facility] HospitalBsstdmdRCWTNZZHWS6775-72-53 11:32:00 Test Item Value Reference Range Interpretation Comments Monocytes (test code = Monocytes) 13.7 2.0-12.0 [facility] HospitalStniurbCYHTURRRYP7138-70-14 11:32:00 Test Item Value Reference Range Interpretation Comments Segs-Bands # (test code = Segs-Bands #) 2.6 1.5-8.1 [facility] HospitalYnppkkdCZBUUERRKK1841-50-03 11:32:00 Test Item Value Reference Range Interpretation Comments Basophils (test code = 0.7 See_Comment [Aut omated message] The Basophils) system which ge nerated this result tra nsmitted reference range : <=1.0. The reference r leo was not used to int erpret this result as normal/abnormal . [facility] HospitalXrqdxovJFDATFOPFL4798-84-39 11:32:00 Test Item Value Reference Range Interpretation Comments Monocytes # (test code 0.7 See_Comment [Aut omated message] The = Monocytes #) system which generated this result tra nsmitted reference range : <=0.8. The reference r leo was not used to int erpret this result as normal/abnormal . [facility] HospitalLjjwrggEBAWJURSHN6982-09-17 11:32:00 Test Item Value Reference Range Interpretation Comments Lymphocytes # (test code = Lymphocytes 1.6 1.0-5.5 #) [facility] HospitalXcvykbaVWFJCIUAAO5005-68-73 11:32:00 Test Item Value Reference Range Interpretation Comments Eosinophils # (test code 0.2 See_Comment [A utomated message] The = Eosinophils #) system whic h generated this result tra nsmitted reference range : <=0.5. The reference r leo was not used to int erpret this result as normal/abnormal . [facility] HospitalZmcjievJKWHRHYGOU0899-05-29 11:32:00 Test Item Value Reference Range Interpretation Comments Segs (test code = Segs) 50.7 45.0-75.0 [facility] HospitalUyolxvyUTSRHHYQDK7476-34-22 11:32:00 Test Item Value Reference Range Interpretation [...] iron deficiency anemia, and renal disease. CPT: 51007 [facility] HospitalVblpkzgRZDRUGDCJB1055-43-75 11:32:00 Test Item Value Reference Range Interpretation Comments Hct (test code = Hct) 28.1 36.0-48.0 [facility] HospitalNzgmuhxVCIXLCNOMA7779-31-38 11:32:00 Test Item Value Reference Range Interpretation Comments RBC (test code = RBC) 3.39 4.20-5.40 [facility] HospitalLybrjlqQSTIWZRQIT3971-13-57 11:32:00 Test Item Value Reference Range Interpretation Comments Hgb (test code = Hgb) 8.9 12.0-16.0 [facility] HospitalBgmmmxwFFONHBWAHJ7589-92-27 11:32:00 Test Item Value Reference Range Interpretation Comments WBC (test code = WBC) 5.1 3.7-10.4 [facility] HospitalRzwyovfXPWKAINGNT9282-05-07 11:32:00 Test Item Value Reference Range Interpretation Comments MPV (test code = MPV) 11.3 7.4-10.4 [facility] HospitalMliouxfABONYMPPOB5527-31-43 11:32:00 Test Item Value Reference Range Interpretation Comments Platelet (test code = Platelet) 118 133-450 [facility] HospitalLuihucoPGPRZLZTWF3978-56-11 11:32:00 Test Item Value Reference Range Interpretation Comments MCHC (test code = MCHC) 31.8 32.0-36.0 [facility] HospitalZuyauhcDMCDZJSDSM6652-68-23 11:32:00 Test Item Value Reference Range Interpretation Comments RDW (test code = RDW) 18.0 11.5-14.5 [facility] HospitalJlvmwzjQNPZXVDTVT7880-77-07 11:32:00 Test Item Value Reference Range Interpretation Comments MCV (test code = MCV) 83.0 80.0-98.0 [facility] HospitalGhzmwjqVSRANSPXPS7095-82-37 11:32:00 Test Item Value Reference Range Interpretation Comments MCH (test code = MCH) 26.4 pg 27.0-31.0 [facility] HospitalAzfyajkFSLZMOPPLG6682-21-97 11:32:00 Test Item Value Reference Range Interpretation Comments C3 Complement (test code = C3 137 88-201 Complement) [facility] CenterBcxvtsfVAHFNFXXNK9684-64-97 11:32:00 Test Item Value Reference Range Interpretation Comments HIV. (test code = Negative *NA*(07/30/16 HIV.) 5:32 AM) [facility] HospitalJkisltoXNPGNASXPQPK9642-20-44 11:32:00 Test Item Value Reference Range Interpretation Comments AGAP (test code = AGAP) 14.6 10.0-20.0 [facility] HospitalXxbfqmgVABMYZUNOMVI6806-20-10 11:32:00 Test Item Value Reference Range Interpretation Comments eGFR (test code = eGFR) 33 [facility] HospitalBjjvuojSRQVLLTRAVXG2888-72-78 11:32:00 Test Item Value Reference Range Interpretation Comments Calcium Lvl (test code = Calcium Lvl) 8.3 8.5-10.5 [facility] HospitalEgovpldKFYDLIGLUNBN6525-01-49 11:32:00 Test Item Value Reference Range Interpretation Comments Glucose Lvl (test code = Glucose Lvl) 81 70-99 [facility] HospitalWfhuzifVIYFJAFAFHSX4894-43-22 11:32:00 Test Item Value Reference Range Interpretation Comments Creatinine Lvl (test code = Creatinine 1.95 0.50-1.40 Lvl) [facility] HospitalVcoodvdHYLAYCJDNFPV7611-03-96 11:32:00 Test Item Value Reference Range Interpretation Comments BUN (test code = BUN) 55 7-22 [facility] HospitalCeplcjpGKDHHXALTSGK1807-12-63 11:32:00 Test Item Value Reference Range Interpretation Comments CO2 (test code = CO2) 19 24-32 [facility] HospitalNtsvchpOICMDHTJGMXC5587-66-17 11:32:00 Test Item Value Reference Range Interpretation Comments Chloride Lvl (test code = Chloride Lvl) 110 95-109 [facility] HospitalKpirvfcGUAVSASSGXOK1821-52-94 11:32:00 Test Item Value Reference Range Interpretation Comments Sodium Lvl (test code = Sodium Lvl) 139 135-145 [facility] HospitalWdxsvrmJOCIDXYGRSHS8051-15-52 11:32:00 Test Item Value Reference Range Interpretation Comments Potassium Lvl (test code = Potassium 4.6 3.5-5.1 Lvl) [facility] CenterDqciobdEEPUTNYLVM6804-10-05 11:32:00 Test Item Value Reference Range Interpretation Comments Lymphocytes (test code = Lymphocytes) 30.4 20.0-40.0 [facility] HospitalBomtmxbLOBIGCXUSS5927-57-63 11:32:00 Test Item Value Reference Range Interpretation Comments Eosinophils (test code = 4.5 See_Comment [A utomated message] The Eosinophils) system which ge nerated this result tra nsmitted reference range : <=4.0. The reference r leo was not used to int erpret this result as normal/abnormal . [facility] HospitalUatutjfLDEZTZEGNX6183-70-45 11:32:00 Test Item Value Reference Range Interpretation Comments Monocytes (test code = Monocytes) 13.7 2.0-12.0 [facility] HospitalKjtlchqVDZNPUTMUA0738-20-20 11:32:00 Test Item Value Reference Range Interpretation Comments Segs-Bands # (test code = Segs-Bands #) 2.6 1.5-8.1 [facility] HospitalAjvwvrhLKPLVXPDHT9509-73-88 11:32:00 Test Item Value Reference Range Interpretation Comments Basophils (test code = 0.7 See_Comment [Aut omated message] The Basophils) system which ge nerated this result tra nsmitted reference range : <=1.0. The reference r leo was not used to int erpret this result as normal/abnormal . [facility] HospitalCdbzozpSFPXJCDVLN1058-16-00 11:32:00 Test Item Value Reference Range Interpretation Comments Monocytes # (test code 0.7 See_Comment [Aut omated message] The = Monocytes #) system which generated this result tra nsmitted reference range : <=0.8. The reference r leo was not used to int erpret this result as normal/abnormal . [facility] HospitalEehkhoyFNJCINXXOG6881-59-14 11:32:00 Test Item Value Reference Range Interpretation Comments Lymphocytes # (test code = Lymphocytes 1.6 1.0-5.5 #) [facility] HospitalAnjajgoAXQOCJVDNV3512-84-97 11:32:00 Test Item Value Reference Range Interpretation Comments Eosinophils # (test code 0.2 See_Comment [A utomated message] The = Eosinophils #) system ic h generated this result tra nsmitted reference range : <=0.5. The reference r leo was not used to int erpret this result as normal/abnormal . [facility] HospitalZbxmvhtZFBURKMLWZ8188-30-64 11:32:00 Test Item Value Reference Range Interpretation Comments Segs (test code = Segs) 50.7 45.0-75.0 [facility] HospitalIktcjpvEGMKMAFEAQ4307-14-33 11:32:00 Test Item Value Reference Range Interpretation [...] iron deficiency anemia, and renal disease. CPT: 73957 [facility] HospitalAnfssioILVTUIPHYE1263-23-04 11:32:00 Test Item Value Reference Range Interpretation Comments Hct (test code = Hct) 28.1 36.0-48.0 [facility] HospitalWsvqmahVHLWTKSOOM5887-47-98 11:32:00 Test Item Value Reference Range Interpretation Comments RBC (test code = RBC) 3.39 4.20-5.40 [facility] HospitalAmbxblcWBPMMAUPTC4613-19-23 11:32:00 Test Item Value Reference Range Interpretation Comments Hgb (test code = Hgb) 8.9 12.0-16.0 [facility] HospitalCfdztuuBBYYAZVMWJ6449-79-46 11:32:00 Test Item Value Reference Range Interpretation Comments WBC (test code = WBC) 5.1 3.7-10.4 [facility] HospitalKuvimyaMHUQKZRYLH4461-65-12 11:32:00 Test Item Value Reference Range Interpretation Comments MPV (test code = MPV) 11.3 7.4-10.4 [facility] HospitalYxhhhiqROLQBEEXFL9461-03-32 11:32:00 Test Item Value Reference Range Interpretation Comments Platelet (test code = Platelet) 118 133-450 [facility] HospitalVrtjgogSMXGWCGGNJ4873-00-70 11:32:00 Test Item Value Reference Range Interpretation Comments MCHC (test code = MCHC) 31.8 32.0-36.0 [facility] HospitalTmsnhcdZGKBMSTWZN4831-16-13 11:32:00 Test Item Value Reference Range Interpretation Comments RDW (test code = RDW) 18.0 11.5-14.5 [facility] HospitalCjywnrnSTFHSWHZHM1539-77-71 11:32:00 Test Item Value Reference Range Interpretation Comments MCV (test code = MCV) 83.0 80.0-98.0 [facility] HospitalDmtbbofWHLKRRMFWF0838-51-44 11:32:00 Test Item Value Reference Range Interpretation Comments MCH (test code = MCH) 26.4 pg 27.0-31.0 [facility] HospitalLcsstmdCLHMDWZGZT4910-28-76 11:32:00 Test Item Value Reference Range Interpretation Comments C3 Complement (test code = C3 137 88-201 Complement) [facility] HospitalTyearywXFXVXYVXYP2340-26-70 11:32:00 Test Item Value Reference Range Interpretation Comments HIV. (test code = Negative *NA*(07/30/16 HIV.) 5:32 AM) [facility] HospitalBswzvldIKBQBDUJVY5251-21-32 11:05:00 Test Item Value Reference Range Interpretation [...] iron deficiency anemia, and renal disease. CPT: 87428 [facility] HospitalDkzholoPQUMWGXTTH7737-26-94 11:05:00 Test Item Value Reference Range Interpretation Comments HIV. (test code = Negative *NA*(07/29/16 HIV.) 5:05 AM) [facility] HospitalNetjiaeGHJTRMNTZO9872-42-93 11:05:00 Test Item Value Reference Range Interpretation Comments C3 Complement (test code = C3 92 88-201 Complement) [facility] HospitalKaguzzzKVOTJZSNQC9507-99-77 11:05:00 Test Item Value Reference Range Interpretation [...] iron deficiency anemia, and renal disease. CPT: 69782 [facility] HospitalDwnzebpVJNDJUPVIW7073-79-67 11:05:00 Test Item Value Reference Range Interpretation Comments HIV. (test code = Negative *NA*(07/29/16 HIV.) 5:05 AM) [facility] HospitalBvlrbcjDVKUGUSXJY3402-40-65 11:05:00 Test Item Value Reference Range Interpretation Comments C3 Complement (test code = C3 92 88-201 Complement) [facility] HospitalElpufhaOBRFTHNCAB9550-40-84 11:05:00 Test Item Value Reference Range Interpretation [...] iron deficiency anemia, and renal disease. CPT: 23836 [facility] HospitalAnhucavLLQMJCDPSR4523-09-29 11:05:00 Test Item Value Reference Range Interpretation Comments HIV. (test code = Negative *NA*(07/29/16 HIV.) 5:05 AM) [facility] HospitalLmdeinpNARKYAVNDI2480-36-08 11:05:00 Test Item Value Reference Range Interpretation Comments C3 Complement (test code = C3 92 88-201 Complement) [facility] HospitalNkxzsgpMBYEMTYJHL1216-80-30 11:05:00 Test Item Value Reference Range Interpretation [...] iron deficiency anemia, and renal disease. CPT: 65892 [facility] HospitalYnaxkqlLGWKFTAMUA0130-07-64 11:05:00 Test Item Value Reference Range Interpretation Comments HIV. (test code = Negative *NA*(07/29/16 HIV.) 5:05 AM) [facility] HospitalSdgbisiZKBXYWIVQU4448-76-71 11:05:00 Test Item Value Reference Range Interpretation Comments C3 Complement (test code = C3 92 88-201 Complement) [facility] HospitalFbvwlmfEGPEBHZLWQ6587-11-67 11:05:00 Test Item Value Reference Range Interpretation [...] iron deficiency anemia, and renal disease. CPT: 65124 [facility] HospitalNhdhqqtOBLIXYLYCC4614-73-94 11:05:00 Test Item Value Reference Range Interpretation Comments HIV. (test code = Negative *NA*(07/29/16 HIV.) 5:05 AM) [facility] HospitalLhjqosjCLZGPLHCYP9174-94-45 11:05:00 Test Item Value Reference Range Interpretation Comments C3 Complement (test code = C3 92 88-201 Complement) [facility]2017-02-07 15:50:00 Test Item Value Reference Range Interpretation Comments eGFR (test code = eGFR) 25 [facility]2017-02-07 15:50:00 Test Item Value Reference Range Interpretation Comments BUN (test code = BUN) 55 7-22 [facility]2017-02-07 15:50:00 Test Item Value Reference Range Interpretation Comments CO2 (test code = CO2) 23 24-32 [facility]2017-02-07 15:50:00 Test Item Value Reference Range Interpretation Comments Chloride Lvl (test code = Chloride Lvl) 109 95-109 [facility]2017-02-07 15:50:00 Test Item Value Reference Range Interpretation Comments Glucose Lvl (test code = Glucose Lvl) 101 70-99 [facility]2017-02-07 15:50:00 Test Item Value Reference Range Interpretation Comments Potassium Lvl (test code = Potassium 4.0 3.5-5.1 Lvl) [facility]2017-02-07 15:50:00 Test Item Value Reference Range Interpretation Comments Sodium Lvl (test code = Sodium Lvl) 141 135-145 [facility]2017-02-07 15:50:00 Test Item Value Reference Range Interpretation Comments AGAP (test code = AGAP) 13.0 10.0-20.0 [facility]2017-02-07 15:50:00 Test Item Value Reference Range Interpretation Comments Calcium Lvl (test code = Calcium Lvl) 7.7 8.5-10.5 [facility]2017-02-07 15:50:00 Test Item Value Reference Range Interpretation Comments Creatinine Lvl (test code = Creatinine 2.49 0.50-1.40 Lvl) [facility] HospitalZwhkjhiPRDKDNZWUF5988-49-36 15:50:00 Test Item Value Reference Range Interpretation Comments PT (test code = PT) 14.8 s 12.0-14.7 [facility] HospitalLzykxemCMQQUFWQTB7496-38-30 15:50:00 Test Item Value Reference Range Interpretation Comments PTT (test code = PTT) 40.8 s 22.9-35.8 [facility] HospitalWnwcgucNLOUFUBBLG5026-27-96 15:50:00 Test Item Value Reference Range Interpretation Comments INR (test code = INR) 1.14 0.85-1.17 [facility] CenterJbsgcezNBLMXJWGBA9245-09-29 15:50:00 Test Item Value Reference Range Interpretation Comments C3 Complement (test code = C3 94 88-201 Complement) [facility]2017-02-07 15:50:00 Test Item Value Reference Range Interpretation Comments eGFR (test code = eGFR) 25 [facility]2017-02-07 15:50:00 Test Item Value Reference Range Interpretation Comments BUN (test code = BUN) 55 7-22 [facility]2017-02-07 15:50:00 Test Item Value Reference Range Interpretation Comments CO2 (test code = CO2) 23 24-32 [facility]2017-02-07 15:50:00 Test Item Value Reference Range Interpretation Comments Chloride Lvl (test code = Chloride Lvl) 109 95-109 [facility]2017-02-07 15:50:00 Test Item Value Reference Range Interpretation Comments Glucose Lvl (test code = Glucose Lvl) 101 70-99 [facility]2017-02-07 15:50:00 Test Item Value Reference Range Interpretation Comments Potassium Lvl (test code = Potassium 4.0 3.5-5.1 Lvl) [facility]2017-02-07 15:50:00 Test Item Value Reference Range Interpretation Comments Sodium Lvl (test code = Sodium Lvl) 141 135-145 [facility] [facility] 15:[facility]:00 Test Item Value Reference Range Interpretation Comments AGAP (test code = AGAP) 13.0 10.0-20.0 [facility]2017-02-07 15:50:00 Test Item Value Reference Range Interpretation Comments Calcium Lvl (test code = Calcium Lvl) 7.7 8.5-10.5 [facility]2017-02-07 15:50:00 Test Item Value Reference Range Interpretation Comments Creatinine Lvl (test code = Creatinine 2.49 0.50-1.40 Lvl) [facility]mdHMCAZETJWX7808-64-23 15:50:00 Test Item Value Reference Range Interpretation Comments PT (test code = PT) 14.8 s 12.0-14.7 [facility]SpnywpcVEUZFIGLII5829-91-21 15:50:00 Test Item Value Reference Range Interpretation Comments PTT (test code = PTT) 40.8 s 22.9-35.8 [facility]KzmbpjlILIXELUOPT1260-78-80 15:50:00 Test Item Value Reference Range Interpretation Comments INR (test code = INR) 1.14 0.85-1.17 [facility]VcwzbiwRJOXSKNQIB6610-17-34 15:50:00 Test Item Value Reference Range Interpretation Comments C3 Complement (test code = C3 94 88-201 Complement) [facility]2017-02-07 15:50:00 Test Item Value Reference Range Interpretation Comments eGFR (test code = eGFR) 25 [facility]2017-02-07 15:50:00 Test Item Value Reference Range Interpretation Comments BUN (test code = BUN) 55 7-22 [facility]2017-02-07 15:50:00 Test Item Value Reference Range Interpretation Comments CO2 (test code = CO2) 23 24-32 [facility]2017-02-07 15:50:00 Test Item Value Reference Range Interpretation Comments Chloride Lvl (test code = Chloride Lvl) 109 95-109 [facility]2017-02-07 15:50:00 Test Item Value Reference Range Interpretation Comments Glucose Lvl (test code = Glucose Lvl) 101 70-99 [facility]2017-02-07 15:50:00 Test Item Value Reference Range Interpretation Comments Potassium Lvl (test code = Potassium 4.0 3.5-5.1 Lvl) [facility]2017-02-07 15:50:00 Test Item Value Reference Range Interpretation Comments Sodium Lvl (test code = Sodium Lvl) 141 135-145 [facility]2017-02-07 15:50:00 Test Item Value Reference Range Interpretation Comments AGAP (test code = AGAP) 13.0 10.0-20.0 [place] 141207-02-07 15:50:00 Test Item Value Reference Range Interpretation Comments Calcium Lvl (test code = Calcium Lvl) 7.7 8.5-10.5 [facility]2017-02-07 15:50:00 Test Item Value Reference Range Interpretation Comments Creatinine Lvl (test code = Creatinine 2.49 0.50-1.40 Lvl) [facility]CknrrekYEJGOVATTR1622-19-28 15:50:00 Test Item Value Reference Range Interpretation Comments PT (test code = PT) 14.8 s 12.0-14.7 [facility] HospitalZomywtbQOUZGPZGCE2345-53-02 15:50:00 Test Item Value Reference Range Interpretation Comments PTT (test code = PTT) 40.8 s 22.9-35.8 [facility] HospitalLsbqdefVDQLKJMRAE6002-83-88 15:50:00 Test Item Value Reference Range Interpretation Comments INR (test code = INR) 1.14 0.85-1.17 [facility] CenterWsjbqhuIRJNHZHYQQ5233-59-24 15:50:00 Test Item Value Reference Range Interpretation Comments C3 Complement (test code = C3 94 88-201 Complement) [facility]2017-02-07 15:50:00 Test Item Value Reference Range Interpretation Comments eGFR (test code = eGFR) 25 [facility]2017-02-07 15:50:00 Test Item Value Reference Range Interpretation Comments BUN (test code = BUN) 55 7-22 [facility]2017-02-07 15:50:00 Test Item Value Reference Range Interpretation Comments CO2 (test code = CO2) 23 24-32 [facility]2017-02-07 15:50:00 Test Item Value Reference Range Interpretation Comments Chloride Lvl (test code = Chloride Lvl) 109 95-109 [facility]2017-02-07 15:50:00 Test Item Value Reference Range Interpretation Comments Glucose Lvl (test code = Glucose Lvl) 101 70-99 [facility]2017-02-07 15:50:00 Test Item Value Reference Range Interpretation Comments Potassium Lvl (test code = Potassium 4.0 3.5-5.1 Lvl) [facility]2017-02-07 15:50:00 Test Item Value Reference Range Interpretation Comments Sodium Lvl (test code = Sodium Lvl) 141 135-145 [facility]2017-02-07 15:50:00 Test Item Value Reference Range Interpretation Comments AGAP (test code = AGAP) 13.0 10.0-20.0 [facility]2017-02-07 15:50:00 Test Item Value Reference Range Interpretation Comments Calcium Lvl (test code = Calcium Lvl) 7.7 8.5-10.5 [facility]2017-02-07 15:50:00 Test Item Value Reference Range Interpretation Comments Creatinine Lvl (test code = Creatinine 2.49 0.50-1.40 Lvl) [facility] HospitalGygdcrkPRODZBRLWH0826-14-69 15:50:00 Test Item Value Reference Range Interpretation Comments PT (test code = PT) 14.8 s 12.0-14.7 [facility] HospitalBoqwwcwBNLPTMYAHK3367-25-69 15:50:00 Test Item Value Reference Range Interpretation Comments PTT (test code = PTT) 40.8 s 22.9-35.8 [facility] HospitalCyrjsucBXLZMUTMMD7170-77-76 15:50:00 Test Item Value Reference Range Interpretation Comments INR (test code = INR) 1.14 0.85-1.17 [facility] CenterDdoqjveAVVGFIOQCJ6941-30-80 15:50:00 Test Item Value Reference Range Interpretation Comments C3 Complement (test code = C3 94 88-201 Complement) [facility]2017-02-07 15:50:00 Test Item Value Reference Range Interpretation Comments eGFR (test code = eGFR) 25 [facility]2017-02-07 15:50:00 Test Item Value Reference Range Interpretation Comments BUN (test code = BUN) 55 7-22 [facility]2017-02-07 15:50:00 Test Item Value Reference Range Interpretation Comments CO2 (test code = CO2) 23 24-32 [facility]2017-02-07 15:50:00 Test Item Value Reference Range Interpretation Comments Chloride Lvl (test code = Chloride Lvl) 109 95-109 [facility]2017-02-07 15:50:00 Test Item Value Reference Range Interpretation Comments Glucose Lvl (test code = Glucose Lvl) 101 70-99 [facility]2017-02-07 15:50:00 Test Item Value Reference Range Interpretation Comments Potassium Lvl (test code = Potassium 4.0 3.5-5.1 Lvl) [facility]2017-02-07 15:50:00 Test Item Value Reference Range Interpretation Comments Sodium Lvl (test code = Sodium Lvl) 141 135-145 [facility]2017-02-07 15:50:00 Test Item Value Reference Range Interpretation Comments AGAP (test code = AGAP) 13.0 10.0-20.0 [facility]2017-02-07 15:50:00 Test Item Value Reference Range Interpretation Comments Calcium Lvl (test code = Calcium Lvl) 7.7 8.5-10.5 [facility]2017-02-07 15:50:00 Test Item Value Reference Range Interpretation Comments Creatinine Lvl (test code = Creatinine 2.49 0.50-1.40 Lvl) [facility] HospitalFjxydsyCQSHSCHABL8510-45-62 15:50:00 Test Item Value Reference Range Interpretation Comments PT (test code = PT) 14.8 s 12.0-14.7 [facility] HospitalBhxykbaXNDWFOVHSH2146-53-49 15:50:00 Test Item Value Reference Range Interpretation Comments PTT (test code = PTT) 40.8 s 22.9-35.8 [facility] HospitalXizzvhnYRQOGTYRYD9743-89-92 15:50:00 Test Item Value Reference Range Interpretation Comments INR (test code = INR) 1.14 0.85-1.17 [facility] CenterXggtvuiVWGJHZLOYB6587-32-21 15:50:00 Test Item Value Reference Range Interpretation Comments C3 Complement (test code = C3 94 88-201 Complement) [facility] HospitalCywgmnlDKCGWVGVFK5671-46-15 10:35:00 Test Item Value Reference Range Interpretation Comments Lymphocytes # (test code = Lymphocytes 1.7 1.0-5.5 #) [facility] HospitalZnimrivFXMFNNHNBK3425-93-55 10:35:00 Test Item Value Reference Range Interpretation Comments Segs-Bands # (test code = Segs-Bands #) 2.7 1.5-8.1 [facility] HospitalInshfakRLNYDEXITR9779-36-29 10:35:00 Test Item Value Reference Range Interpretation Comments Eosinophils # (test code 0.1 See_Comment [A utomated message] The = Eosinophils #) system whic h generated this result tra nsmitted reference range : <=0.5. The reference r leo was not used to int erpret this result as normal/abnormal . [facility] HospitalXpxgpsmTKZDULSVXI4216-21-70 10:35:00 Test Item Value Reference Range Interpretation Comments Monocytes # (test code 0.7 See_Comment [Aut omated message] The = Monocytes #) system which generated this result tra nsmitted reference range : <=0.8. The reference r leo was not used to int erpret this result as normal/abnormal . [facility] HospitalYvgqgopRMYJJWUXFB6269-59-18 10:35:00 Test Item Value Reference Range Interpretation Comments Segs (test code = Segs) 51.3 45.0-75.0 [facility] HospitalYpqvvxjORTGKSXANE8064-12-71 10:35:00 Test Item Value Reference Range Interpretation Comments Lymphocytes (test code = Lymphocytes) 31.6 20.0-40.0 [facility] HospitalGtikhcjBOMWUUVHGW6737-70-89 10:35:00 Test Item Value Reference Range Interpretation Comments Monocytes (test code = Monocytes) 14.1 2.0-12.0 [facility] HospitalEyqvnxpPTNSOLSJLT5095-12-02 10:35:00 Test Item Value Reference Range Interpretation Comments Eosinophils (test code = 2.6 See_Comment [A utomated message] The Eosinophils) system which ge nerated this result tra nsmitted reference range : <=4.0. The reference r leo was not used to int erpret this result as normal/abnormal . [facility] HospitalQiqdpvtIQTGHAEDIU1059-91-91 10:35:00 Test Item Value Reference Range Interpretation Comments Basophils (test code = 0.4 See_Comment [Aut omated message] The Basophils) system which ge nerated this result tra nsmitted reference range : <=1.0. The reference r leo was not used to int erpret this result as normal/abnormal . [facility] HospitalTnfzoxgKMUKHRJEJV3122-83-84 10:35:00 Test Item Value Reference Range Interpretation Comments PB Smear Path Peripheral blood smear shows (test code = PB hypochromic normocytic Smear Path) anemia with anisopoikilocytsosis, no increase in schistocytes, slight polychromasia, a few estella cells, moderate thrombocytopenia. Impression: (1) no evidence of microangiopathic hemolysis, (2) RBC morphology is suggestive of anemia of chronic disease or iron deficiency anemia, and renal disease. CPT: 30438 [facility] HospitalLvginujCTLQNBVOMF7303-68-03 10:35:00 Test Item Value Reference Range Interpretation Comments Hct (test code = Hct) 29.3 36.0-48.0 [facility] HospitalMxgvhkcGDFDHGCUAO6986-38-33 10:35:00 Test Item Value Reference Range Interpretation Comments Hgb (test code = Hgb) 9.2 12.0-16.0 [facility] HospitalNvaextqECLLBEGEMQ6488-22-89 10:35:00 Test Item Value Reference Range Interpretation Comments RBC (test code = RBC) 3.54 4.20-5.40 [facility] HospitalAflfmkdEYJZQCPQBC8535-94-38 10:35:00 Test Item Value Reference Range Interpretation Comments WBC (test code = WBC) 5.3 3.7-10.4 [facility] HospitalYzkwzlbYXXQPWKAGE8868-81-80 10:35:00 Test Item Value Reference Range Interpretation Comments Platelet (test code = Platelet) 87 133-450 [facility] HospitalSnlpgigACQUJIYKFJ5879-47-99 10:35:00 Test Item Value Reference Range Interpretation Comments MCHC (test code = MCHC) 31.4 32.0-36.0 [facility] HospitalRgximnvFHNZZFSYOS5184-40-63 10:35:00 Test Item Value Reference Range Interpretation Comments RDW (test code = RDW) 17.9 11.5-14.5 [facility] HospitalKwimuosBEGYLDIOSE9893-23-94 10:35:00 Test Item Value Reference Range Interpretation Comments MPV (test code = MPV) 10.9 7.4-10.4 [facility] HospitalIxcrjwcGWGNMCHRNL7227-74-75 10:35:00 Test Item Value Reference Range Interpretation Comments MCH (test code = MCH) 26.0 pg 27.0-31.0 [facility] CenterRdmqtrlAGAEYFFGMW3922-56-68 10:35:00 Test Item Value Reference Range Interpretation Comments MCV (test code = MCV) 82.8 80.0-98.0 [facility] CenterOidstzrAREJQKTVVY9621-07-16 10:35:00 Test Item Value Reference Range Interpretation Comments HIV. (test code = Negative *NA*(07/28/16 HIV.) 4:35 AM) [facility] HospitalHsuvhcoQTXCOIMSZV2042-50-07 10:35:00 Test Item Value Reference Range Interpretation Comments Lymphocytes # (test code = Lymphocytes 1.7 1.0-5.5 #) [facility] HospitalRufyayqFQGJNTBJLP3506-01-96 10:35:00 Test Item Value Reference Range Interpretation Comments Segs-Bands # (test code = Segs-Bands #) 2.7 1.5-8.1 [facility] HospitalKzrrlfnYXWRUGZTFE0135-27-40 10:35:00 Test Item Value Reference Range Interpretation Comments Eosinophils # (test code 0.1 See_Comment [A utomated message] The = Eosinophils #) system whic h generated this result tra nsmitted reference range : <=0.5. The reference r leo was not used to int erpret this result as normal/abnormal . [facility] HospitalSvingkoASPSSXHYMR6895-55-09 10:35:00 Test Item Value Reference Range Interpretation Comments Monocytes # (test code 0.7 See_Comment [Aut omated message] The = Monocytes #) system which generated this result tra nsmitted reference range : <=0.8. The reference r leo was not used to int erpret this result as normal/abnormal . [facility] HospitalOnaoobzEPVSHELIHO1178-44-11 10:35:00 Test Item Value Reference Range Interpretation Comments Segs (test code = Segs) 51.3 45.0-75.0 [facility] HospitalEwdmrkbDEBQMWLUHQ4623-59-30 10:35:00 Test Item Value Reference Range Interpretation Comments Lymphocytes (test code = Lymphocytes) 31.6 20.0-40.0 [facility] HospitalNfedhuwAQAYGFJZIC3574-01-98 10:35:00 Test Item Value Reference Range Interpretation Comments Monocytes (test code = Monocytes) 14.1 2.0-12.0 [facility] HospitalVbhkrdnOGGYRBXLHH6724-94-35 10:35:00 Test Item Value Reference Range Interpretation Comments Eosinophils (test code = 2.6 See_Comment [A utomated message] The Eosinophils) system which ge nerated this result tra nsmitted reference range : <=4.0. The reference r leo was not used to int erpret this result as normal/abnormal . [facility] HospitalOqvxdprROVOXJPTKL1843-23-13 10:35:00 Test Item Value Reference Range Interpretation Comments Basophils (test code = 0.4 See_Comment [Aut omated message] The Basophils) system which ge nerated this result tra nsmitted reference range : <=1.0. The reference r leo was not used to int erpret this result as normal/abnormal . [facility] HospitalXmojieaNVDLWBEHKI4775-04-84 10:35:00 Test Item Value Reference Range Interpretation Comments PB Smear Path Peripheral blood smear shows (test code = PB hypochromic normocytic Smear Path) anemia with anisopoikilocytsosis, no increase in schistocytes, slight polychromasia, a few estella cells, moderate thrombocytopenia. Impression: (1) no evidence of microangiopathic hemolysis, (2) RBC morphology is suggestive of anemia of chronic disease or iron deficiency anemia, and renal disease. CPT: 75488 [facility] HospitalGihdiqdQQXSLYHMQI6896-17-53 10:35:00 Test Item Value Reference Range Interpretation Comments Hct (test code = Hct) 29.3 36.0-48.0 [facility] HospitalYexoqhqTNJLRCUQOO3092-46-77 10:35:00 Test Item Value Reference Range Interpretation Comments Hgb (test code = Hgb) 9.2 12.0-16.0 [facility] HospitalPqlbeitQZOORLPSIN3793-25-15 10:35:00 Test Item Value Reference Range Interpretation Comments RBC (test code = RBC) 3.54 4.20-5.40 [facility] HospitalZmtntdqMOVMSCLROR6155-39-30 10:35:00 Test Item Value Reference Range Interpretation Comments WBC (test code = WBC) 5.3 3.7-10.4 [facility] HospitalLfdsjzfYACYNSYRYP2675-54-01 10:35:00 Test Item Value Reference Range Interpretation Comments Platelet (test code = Platelet) 87 133-450 [facility] HospitalIdmhuucRHXICLJFJW8744-43-84 10:35:00 Test Item Value Reference Range Interpretation Comments MCHC (test code = MCHC) 31.4 32.0-36.0 [facility] HospitalNcbikkbNOOBPIUDPY3263-88-60 10:35:00 Test Item Value Reference Range Interpretation Comments RDW (test code = RDW) 17.9 11.5-14.5 [facility] HospitalOfkwpgbQBAPTBDKFQ3742-56-56 10:35:00 Test Item Value Reference Range Interpretation Comments MPV (test code = MPV) 10.9 7.4-10.4 [facility] HospitalLzikojhCTFWNWZWAN3018-45-77 10:35:00 Test Item Value Reference Range Interpretation Comments MCH (test code = MCH) 26.0 pg 27.0-31.0 [facility] HospitalNwqgpqbRGDRMSCRXE2565-76-02 10:35:00 Test Item Value Reference Range Interpretation Comments MCV (test code = MCV) 82.8 80.0-98.0 [facility] HospitalLexhiqlOVUTCSSTGR4146-79-95 10:35:00 Test Item Value Reference Range Interpretation Comments HIV. (test code = Negative *NA*(07/28/16 HIV.) 4:35 AM) [facility] HospitalDikvxvpPMYYTCHXWR1801-26-93 10:35:00 Test Item Value Reference Range Interpretation Comments Lymphocytes # (test code = Lymphocytes 1.7 1.0-5.5 #) [facility] HospitalNhnjwruUZFABWOSDW2063-34-42 10:35:00 Test Item Value Reference Range Interpretation Comments Segs-Bands # (test code = Segs-Bands #) 2.7 1.5-8.1 [facility] HospitalOlraxxfZWKXFJYQNQ4316-27-12 10:35:00 Test Item Value Reference Range Interpretation Comments Eosinophils # (test code 0.1 See_Comment [A utomated message] The = Eosinophils #) system whic h generated this result tra nsmitted reference range : <=0.5. The reference r leo was not used to int erpret this result as normal/abnormal . [facility] HospitalJgknjwdYNBGVFQLEN4637-04-90 10:35:00 Test Item Value Reference Range Interpretation Comments Monocytes # (test code 0.7 See_Comment [Aut omated message] The = Monocytes #) system which generated this result tra nsmitted reference range : <=0.8. The reference r leo was not used to int erpret this result as normal/abnormal . [facility] HospitalNdlbjcpYJWVXEDWRK9101-35-71 10:35:00 Test Item Value Reference Range Interpretation Comments Segs (test code = Segs) 51.3 45.0-75.0 [facility] HospitalFkwmrvcOEUEGEPFPP7082-73-34 10:35:00 Test Item Value Reference Range Interpretation Comments Lymphocytes (test code = Lymphocytes) 31.6 20.0-40.0 [facility] HospitalYnpcjxwFJPESKLLQY2565-19-22 10:35:00 Test Item Value Reference Range Interpretation Comments Monocytes (test code = Monocytes) 14.1 2.0-12.0 [facility] HospitalWevcqcxCBLXYAUOSU3601-78-76 10:35:00 Test Item Value Reference Range Interpretation Comments Eosinophils (test code = 2.6 See_Comment [A utomated message] The Eosinophils) system which ge nerated this result tra nsmitted reference range : <=4.0. The reference r leo was not used to int erpret this result as normal/abnormal . [place] [address]-02-07 10:35:00 Test Item Value Reference Range Interpretation Comments Basophils (test code = 0.4 See_Comment [Aut omated message] The Basophils) system which ge nerated this result tra nsmitted reference range : <=1.0. The reference r leo was not used to int erpret this result as normal/abnormal . [facility] HospitalNoxxscsKXPEKELRFS6604-95-79 10:35:00 Test Item Value Reference Range Interpretation Comments PB Smear Path Peripheral blood smear shows (test code = PB hypochromic normocytic Smear Path) anemia with anisopoikilocytsosis, no increase in schistocytes, slight polychromasia, a few estella cells, moderate thrombocytopenia. Impression: (1) no evidence of microangiopathic hemolysis, (2) RBC morphology is suggestive of anemia of chronic disease or iron deficiency anemia, and renal disease. CPT: 53182 [facility] HospitalEixbblnWVFMPSKMBE0159-11-04 10:35:00 Test Item Value Reference Range Interpretation Comments Hct (test code = Hct) 29.3 36.0-48.0 [facility] HospitalPcmpvopYMBFMRZGPY4034-08-64 10:35:00 Test Item Value Reference Range Interpretation Comments Hgb (test code = Hgb) 9.2 12.0-16.0 [facility] HospitalKazesviZWUIJBXQMA3431-05-54 10:35:00 Test Item Value Reference Range Interpretation Comments RBC (test code = RBC) 3.54 4.20-5.40 [facility] HospitalLnyhumaNOMUIMAJWF5023-45-94 10:35:00 Test Item Value Reference Range Interpretation Comments WBC (test code = WBC) 5.3 3.7-10.4 [facility] HospitalYjzwfnaHSCZXRBLZE5006-79-93 10:35:00 Test Item Value Reference Range Interpretation Comments Platelet (test code = Platelet) 87 133-450 [facility] HospitalHsjontnWTPYFNDNON6763-83-90 10:35:00 Test Item Value Reference Range Interpretation Comments MCHC (test code = MCHC) 31.4 32.0-36.0 [facility] HospitalQxmutyqOWJTOQSFJL7038-68-06 10:35:00 Test Item Value Reference Range Interpretation Comments RDW (test code = RDW) 17.9 11.5-14.5 [facility] HospitalOttyjcyWYVGXNSSVH0564-41-42 10:35:00 Test Item Value Reference Range Interpretation Comments MPV (test code = MPV) 10.9 7.4-10.4 [facility] HospitalFqgetybOSCFUOCGQU1671-62-72 10:35:00 Test Item Value Reference Range Interpretation Comments MCH (test code = MCH) 26.0 pg 27.0-31.0 [facility] HospitalFjwqqotJEXZRBWTJM4379-05-21 10:35:00 Test Item Value Reference Range Interpretation Comments MCV (test code = MCV) 82.8 80.0-98.0 [facility] CenterMsiedzpXDRDOSIMNY1563-39-97 10:35:00 Test Item Value Reference Range Interpretation Comments HIV. (test code = Negative *NA*(07/28/16 HIV.) 4:35 AM) [facility] HospitalZopshfjMMHAEPGOOG6846-25-01 10:35:00 Test Item Value Reference Range Interpretation Comments Lymphocytes # (test code = Lymphocytes 1.7 1.0-5.5 #) [facility] HospitalAobddoxTRCATPZETH4583-18-47 10:35:00 Test Item Value Reference Range Interpretation Comments Segs-Bands # (test code = Segs-Bands #) 2.7 1.5-8.1 [facility] HospitalWzjaqhnSVOMBXTDDF8710-42-26 10:35:00 Test Item Value Reference Range Interpretation Comments Eosinophils # (test code 0.1 See_Comment [A utomated message] The = Eosinophils #) system [facility] h generated this result tra nsmitted reference range : <=0.5. The reference r leo was not used to int erpret this result as normal/abnormal . [facility] HospitalZfxjsmePORWHNJUNQ1689-50-70 10:35:00 Test Item Value Reference Range Interpretation Comments Monocytes # (test code 0.7 See_Comment [Aut omated message] The = Monocytes #) system which generated this result tra nsmitted reference range : <=0.8. The reference r leo was not used to int erpret this result as normal/abnormal . [facility] HospitalGwqhaulBANJGSLRPK9570-72-95 10:35:00 Test Item Value Reference Range Interpretation Comments Segs (test code = Segs) 51.3 45.0-75.0 [facility] HospitalHkhgizxREQVUYPDQH4143-56-15 10:35:00 Test Item Value Reference Range Interpretation Comments Lymphocytes (test code = Lymphocytes) 31.6 20.0-40.0 [facility] HospitalEpzucjdYSVVSSWJSP5922-60-99 10:35:00 Test Item Value Reference Range Interpretation Comments Monocytes (test code = Monocytes) 14.1 2.0-12.0 [facility] HospitalCvoeaqlNSAOGSUILF8349-21-36 10:35:00 Test Item Value Reference Range Interpretation Comments Eosinophils (test code = 2.6 See_Comment [A utomated message] The Eosinophils) system which ge nerated this result tra nsmitted reference range : <=4.0. The reference r leo was not used to int erpret this result as normal/abnormal . [facility] HospitalFrmwyvjXCLMRTZXNZ2600-84-53 10:35:00 Test Item Value Reference Range Interpretation Comments Basophils (test code = 0.4 See_Comment [Aut omated message] The Basophils) system which ge nerated this result tra nsmitted reference range : <=1.0. The reference r leo was not used to int erpret this result as normal/abnormal . [facility] HospitalXtbthanOOEORZPDUZ3765-38-82 10:35:00 Test Item Value Reference Range Interpretation Comments PB Smear Path Peripheral blood smear shows (test code = PB hypochromic normocytic Smear Path) anemia with anisopoikilocytsosis, no increase in schistocytes, slight polychromasia, a few estella cells, moderate thrombocytopenia. Impression: (1) no evidence of microangiopathic hemolysis, (2) RBC morphology is suggestive of anemia of chronic disease or iron deficiency anemia, and renal disease. CPT: 85271 [facility] HospitalFdpqcugMZOSETIQKW0719-89-01 10:35:00 Test Item Value Reference Range Interpretation Comments Hct (test code = Hct) 29.3 36.0-48.0 [facility] HospitalErhvokkDJTJQROMAQ8132-95-39 10:35:00 Test Item Value Reference Range Interpretation Comments Hgb (test code = Hgb) 9.2 12.0-16.0 [facility]UcwwkkrMXMZHIDFFW5661-39-12 10:35:00 Test Item Value Reference Range Interpretation Comments RBC (test code = RBC) 3.54 4.20-5.40 [facility]IzrxcacCSMVAYHCFG6539-93-48 10:35:00 Test Item Value Reference Range Interpretation Comments WBC (test code = WBC) 5.3 3.7-10.4 [facility] HospitalGqlzbilCOWKCIKZSW9300-11-95 10:35:00 Test Item Value Reference Range Interpretation Comments Platelet (test code = Platelet) 87 133-450 [facility] HospitalHmjuyzwAFWUQVQCMF6506-56-29 10:35:00 Test Item Value Reference Range Interpretation Comments MCHC (test code = MCHC) 31.4 32.0-36.0 [facility] HospitalXrucxhcNLHXJAMQLX4584-20-51 10:35:00 Test Item Value Reference Range Interpretation Comments RDW (test code = RDW) 17.9 11.5-14.5 [facility] HospitalZqlflxfASGXMLQMPG2957-05-55 10:35:00 Test Item Value Reference Range Interpretation Comments MPV (test code = MPV) 10.9 7.4-10.4 [facility] HospitalSwhhipeYYUVEREQSX6222-49-93 10:35:00 Test Item Value Reference Range Interpretation Comments MCH (test code = MCH) 26.0 pg 27.0-31.0 [facility] HospitalIqehrvuVLYQBNYONX8934-35-92 10:35:00 Test Item Value Reference Range Interpretation Comments MCV (test code = MCV) 82.8 80.0-98.0 [facility] CenterSxkjmjgPJYVWVDSPX8451-13-43 10:35:00 Test Item Value Reference Range Interpretation Comments HIV. (test code = Negative *NA*(07/28/16 HIV.) 4:35 AM) [facility] HospitalEwqqnntWKSYIVVFQZ1636-66-29 10:35:00 Test Item Value Reference Range Interpretation Comments Lymphocytes # (test code = Lymphocytes 1.7 1.0-5.5 #) [facility] HospitalCyozonuAIQMLDADFV9710-41-18 10:35:00 Test Item Value Reference Range Interpretation Comments Segs-Bands # (test code = Segs-Bands #) 2.7 1.5-8.1 [facility] HospitalSzftgibMFZUUUREKS2291-37-48 10:35:00 Test Item Value Reference Range Interpretation Comments Eosinophils # (test code 0.1 See_Comment [A utomated message] The = Eosinophils #) system whic h generated this result tra nsmitted reference range : <=0.5. The reference r leo was not used to int erpret this result as normal/abnormal . [facility] HospitalOvvoiewJZMROFOLMZ8826-02-78 10:35:00 Test Item Value Reference Range Interpretation Comments Monocytes # (test code 0.7 See_Comment [Aut omated message] The = Monocytes #) system which generated this result tra nsmitted reference range : <=0.8. The reference r leo was not used to int erpret this result as normal/abnormal . [facility] HospitalLcywxljFFNNDMYMHF4977-29-92 10:35:00 Test Item Value Reference Range Interpretation Comments Segs (test code = Segs) 51.3 45.0-75.0 [facility] HospitalJyoocffVXOFFTHJTL7812-64-35 10:35:00 Test Item Value Reference Range Interpretation Comments Lymphocytes (test code = Lymphocytes) 31.6 20.0-40.0 [facility] HospitalWuyuxckMYLIXALEBM5150-02-79 10:35:00 Test Item Value Reference Range Interpretation Comments Monocytes (test code = Monocytes) 14.1 2.0-12.0 [facility] HospitalJjdojxfKJGMBZZCZO4829-88-20 10:35:00 Test Item Value Reference Range Interpretation Comments Eosinophils (test code = 2.6 See_Comment [A utomated message] The Eosinophils) system which ge nerated this result tra nsmitted reference range : <=4.0. The reference r leo was not used to int erpret this result as normal/abnormal . [facility] HospitalEkhglxiKQAXXLDPGC5747-67-58 10:35:00 Test Item Value Reference Range Interpretation Comments Basophils (test code = 0.4 See_Comment [Aut omated message] The Basophils) system which ge nerated this result tra nsmitted reference range : <=1.0. The reference r leo was not used to int erpret this result as normal/abnormal . [facility] HospitalAbsbzcsSLQTWCIJDO3462-96-68 10:35:00 Test Item Value Reference Range Interpretation Comments PB Smear Path Peripheral blood smear shows (test code = PB hypochromic normocytic Smear Path) anemia with anisopoikilocytsosis, no increase in schistocytes, slight polychromasia, a few estella cells, moderate thrombocytopenia. Impression: (1) no evidence of microangiopathic hemolysis, (2) RBC morphology is suggestive of anemia of chronic disease or iron deficiency anemia, and renal disease. CPT: 36510 [facility] HospitalVlztvwkSTDHYOURDQ2594-04-85 10:35:00 Test Item Value Reference Range Interpretation Comments Hct (test code = Hct) 29.3 36.0-48.0 [facility] HospitalNmeslrgTYLXTGLMNX7353-10-59 10:35:00 Test Item Value Reference Range Interpretation Comments Hgb (test code = Hgb) 9.2 12.0-16.0 [facility] HospitalIciiklwKBZAWGXVIM6864-56-92 10:35:00 Test Item Value Reference Range Interpretation Comments RBC (test code = RBC) 3.54 4.20-5.40 [facility] YcktdslXMBDJJCHEN4600-58-00 10:35:00 Test Item Value Reference Range Interpretation Comments WBC (test code = WBC) 5.3 3.7-10.4 [facility] XahjelhZUIGHFYUIK5457-50-59 10:35:00 Test Item Value Reference Range Interpretation Comments Platelet (test code = Platelet) 87 133-450 [facility]IqdrgugLYRPGVASOA7639-04-57 10:35:00 Test Item Value Reference Range Interpretation Comments MCHC (test code = MCHC) 31.4 32.0-36.0 [facility] ApqpgwuOGMMXFPFXO0205-85-97 10:35:00 Test Item Value Reference Range Interpretation Comments RDW (test code = RDW) 17.9 11.5-14.5 [facility] CenterRebgfokOGOYHGEJCU3004-50-82 10:35:00 Test Item Value Reference Range Interpretation Comments MPV (test code = MPV) 10.9 7.4-10.4 [facility] CenterSaoemqdLCSYUNUFUN2137-88-27 10:35:00 Test Item Value Reference Range Interpretation Comments MCH (test code = MCH) 26.0 pg 27.0-31.0 [facility] WqugvleEMAENMTBEA6420-36-69 10:35:00 Test Item Value Reference Range Interpretation Comments MCV (test code = MCV) 82.8 80.0-98.0 [facility] CenterBufyimsVQCZXSHMZU4446-87-08 10:35:00 Test Item Value Reference Range Interpretation Comments HIV. (test code = Negative *NA*(07/28/16 HIV.) 4:35 AM) [facility] CenterannCARDIAC BSNBQCT7609-77-00 10:22:00 Test Item Value Reference Range Interpretation Comments Total CK (test code = Total CK) 190 12-191 [facility] AmulyteCHEM LHUPE6856-42-09 10:22:00 Test Item Value Reference Range Interpretation Comments Calcium Lvl (test code = Calcium Lvl) 7.8 8.5-10.5 [facility] NextlyannCHEM NYYRM6064-01-75 10:22:00 Test Item Value Reference Range Interpretation Comments CO2 (test code = CO2) 21 24-32 [facility]annCHEM [id number] 10:22:00 Test Item Value Reference Range Interpretation Comments Sodium Lvl (test code = Sodium Lvl) 140 135-145 [facility]2017-02-06 10:22:00 Test Item Value Reference Range Interpretation Comments Potassium Lvl (test code = Potassium 3.8 3.5-5.1 Lvl) [facility]2017-02-06 10:22:00 Test Item Value Reference Range Interpretation Comments Chloride Lvl (test code = Chloride Lvl) 106 95-109 [facility]2017-02-06 10:22:00 Test Item Value Reference Range Interpretation Comments Bili Total (test code = Bili Total) 0.4 0.2-1.3 [facility]2017-02-06 10:22:00 Test Item Value Reference Range Interpretation Comments Alk Phos (test code = Alk Phos) 74 39-136 [facility]2017-02-06 10:22:00 Test Item Value Reference Range Interpretation Comments eGFR (test code = eGFR) 19 [facility]2017-02-06 10:22:00 Test Item Value Reference Range Interpretation Comments Total Protein (test code = Total 5.2 6.4-8.4 Protein) [facility]2017-02-06 10:22:00 Test Item Value Reference Range Interpretation Comments ALT (test code = ALT) 822 See_Comment [Auto mated message] The system which ge nerated this result transmit rohit reference range : <=65. The reference range was not used to interpr et this result as reji l/abnormal. [facility]2017-02-06 10:22:00 Test Item Value Reference Range Interpretation Comments AST (test code = AST) 205 See_Comment [Auto mated message] The system which ge nerated this result transmit rohit reference range : <=37. The reference range was not used to interpr et this result as reji l/abnormal. [facility]2017-02-06 10:22:00 Test Item Value Reference Range Interpretation Comments Albumin Lvl (test code = Albumin Lvl) 1.8 3.5-5.0 [facility]2017-02-06 10:22:00 Test Item Value Reference Range Interpretation Comments BUN (test code = BUN) 54 7-22 [facility]2017-02-06 10:22:00 Test Item Value Reference Range Interpretation Comments Glucose Lvl (test code = Glucose Lvl) 143 70-99 [place] 141207-02-06 10:22:00 Test Item Value Reference Range Interpretation Comments Creatinine Lvl (test code = Creatinine 3.11 0.50-1.40 Lvl) [facility]2017-02-06 10:22:00 Test Item Value Reference Range Interpretation Comments B/C Ratio (test code = B/C Ratio) 17 6-25 [facility]2017-02-06 10:22:00 Test Item Value Reference Range Interpretation Comments AGAP (test code = AGAP) 16.8 10.0-20.0 [facility]2017-02-06 10:22:00 Test Item Value Reference Range Interpretation Comments Globulin (test code = Globulin) 3.4 2.7-4.2 [facility]2017-02-06 10:22:00 Test Item Value Reference Range Interpretation Comments A/G Ratio (test code = A/G Ratio) 0.5 0.7-1.6 [facility]2017-02-06 10:22:00 Test Item Value Reference Range Interpretation Comments Magnesium Lvl (test code = Magnesium 2.0 1.8-2.4 Lvl) [facility]2017-02-06 10:22:00 Test Item Value Reference Range Interpretation Comments Phosphorus (test code = Phosphorus) 3.7 2.5-4.5 [facility] HospitalUlhncdkJPDSTSIUQB7449-47-20 10:22:00 Test Item Value Reference Range Interpretation Comments RDW (test code = RDW) 17.7 11.5-14.5 [facility] HospitalJdwyrleYZEEZPDRTS9490-19-72 10:22:00 Test Item Value Reference Range Interpretation Comments MCHC (test code = MCHC) 32.9 32.0-36.0 [facility] HospitalZiexhxiGAHGEFBSCM8748-44-92 10:22:00 Test Item Value Reference Range Interpretation Comments Hct (test code = Hct) 25.4 36.0-48.0 [facility] HospitalVggqiavQXJIPJXCDB3923-13-01 10:22:00 Test Item Value Reference Range Interpretation Comments MCH (test code = MCH) 26.4 pg 27.0-31.0 [facility] HospitalFhymwkhDWJNRZAGXL6024-06-63 10:22:00 Test Item Value Reference Range Interpretation Comments MCV (test code = MCV) 80.3 80.0-98.0 [place] 563207-02-06 10:22:00 Test Item Value Reference Range Interpretation Comments MPV (test code = MPV) 11.4 7.4-10.4 [facility] HospitalTymyphyRYNDOYVRFZ8165-62-56 10:22:00 Test Item Value Reference Range Interpretation Comments Platelet (test code = Platelet) 74 133-450 [facility] HospitalYemirumBMTLGMLNVQ1783-68-87 10:22:00 Test Item Value Reference Range Interpretation Comments RBC (test code = RBC) 3.16 4.20-5.40 [facility] HospitalSutqmzvNIWYABVCLT9290-91-61 10:22:00 Test Item Value Reference Range Interpretation Comments WBC (test code = WBC) 5.3 3.7-10.4 [facility] HospitalClebkqaMIDKHCVYFL0314-39-64 10:22:00 Test Item Value Reference Range Interpretation Comments Hgb (test code = Hgb) 8.4 12.0-16.0 [facility] HospitalBnohpxiAIBZDECHGK7475-57-46 10:22:00 Test Item Value Reference Range Interpretation Comments Monocytes (test code = Monocytes) 14.5 2.0-12.0 [facility] HospitalNnttwhxLJVYRYZXYX9277-65-38 10:22:00 Test Item Value Reference Range Interpretation Comments Lymphocytes (test code = Lymphocytes) 29.8 20.0-40.0 [facility] HospitalXojapjpBTDOLNUTAA2896-56-18 10:22:00 Test Item Value Reference Range Interpretation Comments Eosinophils # (test code 0.1 See_Comment [A utomated message] The = Eosinophils #) system whic h generated this result tra nsmitted reference range : <=0.5. The reference r leo was not used to int erpret this result as normal/abnormal . [facility] HospitalCyxvgoxMMNTJHWHLQ9384-85-21 10:22:00 Test Item Value Reference Range Interpretation Comments Monocytes # (test code 0.8 See_Comment [Aut omated message] The = Monocytes #) system which generated this result tra nsmitted reference range : <=0.8. The reference r leo was not used to int erpret this result as normal/abnormal . [facility] HospitalBwxstaxRMYLWUKFYL1668-78-59 10:22:00 Test Item Value Reference Range Interpretation Comments Segs-Bands # (test code = Segs-Bands #) 2.9 1.5-8.1 [facility] HospitalNpfpbaqMVOLKWUJQM7705-25-33 10:22:00 Test Item Value Reference Range Interpretation Comments Lymphocytes # (test code = Lymphocytes 1.6 1.0-5.5 #) [facility]ekwwjkRAWTQVAHZW1294-76-83 10:22:00 Test Item Value Reference Range Interpretation Comments Basophils (test code = 0.4 See_Comment [Aut omated message] The Basophils) system which ge nerated this result tra nsmitted reference range : <=1.0. The reference r leo was not used to int erpret this result as normal/abnormal . [facility] HospitalEajijxaDKOFFDIXBI1440-34-79 10:22:00 Test Item Value Reference Range Interpretation Comments Eosinophils (test code = 1.2 See_Comment [A utomated message] The Eosinophils) system which ge nerated this result tra nsmitted reference range : <=4.0. The reference r leo was not used to int erpret this result as normal/abnormal . [facility] HospitalGygffxhMFYIGMWSRF2833-75-67 10:22:00 Test Item Value Reference Range Interpretation Comments Segs (test code = Segs) 54.1 45.0-75.0 [facility] CenterSPECIAL TTRWMSGMH1155-40-34 10:22:00 Test Item Value Reference Range Interpretation Comments Hgb A1C (test code = Hgb A1C) 8.9 [facility] CenterCARDIAC VDHNIKT1400-95-74 10:22:00 Test Item Value Reference Range Interpretation Comments Total CK (test code = Total CK) 190 12-191 [facility] POOWD8393-08-81 10:22:00 Test Item Value Reference Range Interpretation Comments Calcium Lvl (test code = Calcium Lvl) 7.8 8.5-10.5 [facility] GAPKB6700-02-48 10:22:00 Test Item Value Reference Range Interpretation Comments CO2 (test code = CO2) 21 24-32 [facility] CenterCirro QATHD7122-62-91 10:22:00 Test Item Value Reference Range Interpretation Comments Sodium Lvl (test code = Sodium Lvl) 140 135-145 [facility] Center[facility] BFVMQ2171-20-85 10:22:00 Test Item Value Reference Range Interpretation Comments Potassium Lvl (test code = Potassium 3.8 3.5-5.1 Lvl) [facility] Center[facility] QRLUJ6121-71-20 10:22:00 Test Item Value Reference Range Interpretation Comments Chloride Lvl (test code = Chloride Lvl) 106 95-109 [facility]2017-02-06 10:22:00 Test Item Value Reference Range Interpretation Comments Bili Total (test code = Bili Total) 0.4 0.2-1.3 [facility]2017-02-06 10:22:00 Test Item Value Reference Range Interpretation Comments Alk Phos (test code = Alk Phos) 74 39-136 [facility]2017-02-06 10:22:00 Test Item Value Reference Range Interpretation Comments eGFR (test code = eGFR) 19 [facility]2017-02-06 10:22:00 Test Item Value Reference Range Interpretation Comments Total Protein (test code = Total 5.2 6.4-8.4 Protein) [facility]2017-02-06 10:22:00 Test Item Value Reference Range Interpretation Comments ALT (test code = ALT) 822 See_Comment [Auto mated message] The system which ge nerated this result transmit rohit reference range : <=65. The reference range was not used to interpr et this result as reji l/abnormal. [facility]2017-02-06 10:22:00 Test Item Value Reference Range Interpretation Comments AST (test code = AST) 205 See_Comment [Auto mated message] The system which ge nerated this result transmit rohit reference range : <=37. The reference range was not used to interpr et this result as reji l/abnormal. [facility]2017-02-06 10:22:00 Test Item Value Reference Range Interpretation Comments Albumin Lvl (test code = Albumin Lvl) 1.8 3.5-5.0 [facility]2017-02-06 10:22:00 Test Item Value Reference Range Interpretation Comments BUN (test code = BUN) 54 7-22 [facility]2017-02-06 10:22:00 Test Item Value Reference Range Interpretation Comments Glucose Lvl (test code = Glucose Lvl) 143 70-99 [facility]2017-02-06 10:22:00 Test Item Value Reference Range Interpretation Comments Creatinine Lvl (test code = Creatinine 3.11 0.50-1.40 Lvl) [facility]2017-02-06 10:22:00 Test Item Value Reference Range Interpretation Comments B/C Ratio (test code = B/C Ratio) 17 6-25 [facility]2017-02-06 10:22:00 Test Item Value Reference Range Interpretation Comments AGAP (test code = AGAP) 16.8 10.0-20.0 [facility]2017-02-06 10:22:00 Test Item Value Reference Range Interpretation Comments Globulin (test code = Globulin) 3.4 2.7-4.2 [facility]2017-02-06 10:22:00 Test Item Value Reference Range Interpretation Comments A/G Ratio (test code = A/G Ratio) 0.5 0.7-1.6 [facility]2017-02-06 10:22:00 Test Item Value Reference Range Interpretation Comments Magnesium Lvl (test code = Magnesium 2.0 1.8-2.4 Lvl) [facility]2017-02-06 10:22:00 Test Item Value Reference Range Interpretation Comments Phosphorus (test code = Phosphorus) 3.7 2.5-4.5 [facility] HospitalLhzwbjhCJOZFOBAOR9220-88-82 10:22:00 Test Item Value Reference Range Interpretation Comments RDW (test code = RDW) 17.7 11.5-14.5 [facility] HospitalWwlbhlhWKABFGAFZL8875-97-39 10:22:00 Test Item Value Reference Range Interpretation Comments MCHC (test code = MCHC) 32.9 32.0-36.0 [facility] HospitalPobjlthFXDFQFFIAI1451-22-67 10:22:00 Test Item Value Reference Range Interpretation Comments Hct (test code = Hct) 25.4 36.0-48.0 [facility] HospitalRrrvkjsJSWXUCMQNC5531-90-07 10:22:00 Test Item Value Reference Range Interpretation Comments MCH (test code = MCH) 26.4 pg 27.0-31.0 [facility] HospitalFcjanxfIFRJKDGKWQ7372-99-99 10:22:00 Test Item Value Reference Range Interpretation Comments MCV (test code = MCV) 80.3 80.0-98.0 [facility] HospitalGhyaxroRXJMMBBASS0551-99-99 10:22:00 Test Item Value Reference Range Interpretation Comments MPV (test code = MPV) 11.4 7.4-10.4 [facility] HospitalPyknjvzKIPODTXDUV7319-28-86 10:22:00 Test Item Value Reference Range Interpretation Comments Platelet (test code = Platelet) 74 133-450 [facility] HospitalEuxbdlfOEXICLFUGJ2079-69-74 10:22:00 Test Item Value Reference Range Interpretation Comments RBC (test code = RBC) 3.16 4.20-5.40 [facility] HospitalYwiuzgeWWYNFGFZTR4186-74-16 10:22:00 Test Item Value Reference Range Interpretation Comments WBC (test code = WBC) 5.3 3.7-10.4 [facility] HospitalWuxvykjRTHMBZPHHY6777-12-12 10:22:00 Test Item Value Reference Range Interpretation Comments Hgb (test code = Hgb) 8.4 12.0-16.0 [facility] HospitalInjumxnKOUOJTHDLA6238-05-00 10:22:00 Test Item Value Reference Range Interpretation Comments Monocytes (test code = Monocytes) 14.5 2.0-12.0 [facility] HospitalMdpwsvqTWLDYOWGQK6519-25-64 10:22:00 Test Item Value Reference Range Interpretation Comments Lymphocytes (test code = Lymphocytes) 29.8 20.0-40.0 [facility] HospitalOrygwvjAIWNPIUNAB2404-24-10 10:22:00 Test Item Value Reference Range Interpretation Comments Eosinophils # (test code 0.1 See_Comment [A utomated message] The = Eosinophils #) system whic h generated this result tra nsmitted reference range : <=0.5. The reference r leo was not used to int erpret this result as normal/abnormal . [facility] HospitalCrznynxDBMBSDOCAS5920-51-05 10:22:00 Test Item Value Reference Range Interpretation Comments Monocytes # (test code 0.8 See_Comment [Aut omated message] The = Monocytes #) system which generated this result tra nsmitted reference range : <=0.8. The reference r leo was not used to int erpret this result as normal/abnormal . [facility] HospitalJiixstlSTFIYWQAIU4994-03-92 10:22:00 Test Item Value Reference Range Interpretation Comments Segs-Bands # (test code = Segs-Bands #) 2.9 1.5-8.1 [facility] HospitalAnbxfxwQRHPQMFMYK4112-31-95 10:22:00 Test Item Value Reference Range Interpretation Comments Lymphocytes # (test code = Lymphocytes 1.6 1.0-5.5 #) [facility] HospitalIzfxgclRRDDCGDGLS5910-33-63 10:22:00 Test Item Value Reference Range Interpretation Comments Basophils (test code = 0.4 See_Comment [Aut omated message] The Basophils) system which ge nerated this result tra nsmitted reference range : <=1.0. The reference r leo was not used to int erpret this result as normal/abnormal . [facility] CenterCckoopbXSUXHCRPYR6322-85-61 10:22:00 Test Item Value Reference Range Interpretation Comments Eosinophils (test code = 1.2 See_Comment [A utomated message] The Eosinophils) system which ge nerated this result tra nsmitted reference range : <=4.0. The reference r leo was not used to int erpret this result as normal/abnormal . [facility] CenterMtrukjpIQPTNBFICT5131-79-92 10:22:00 Test Item Value Reference Range Interpretation Comments Segs (test code = Segs) 54.1 45.0-75.0 [facility] LTEJXZHOS6306-26-31 10:22:00 Test Item Value Reference Range Interpretation Comments Hgb A1C (test code = Hgb A1C) 8.9 [facility] CenterCARDIAC [id number] 10:22:00 Test Item Value Reference Range Interpretation Comments Total CK (test code = Total CK) 190 12-191 [facility] [id number] 10:22:00 Test Item Value Reference Range Interpretation Comments Calcium Lvl (test code = Calcium Lvl) 7.8 8.5-10.5 [facility] [employer] [id number] 10:22:00 Test Item Value Reference Range Interpretation Comments CO2 (test code = CO2) 21 24-32 [facility] [id number] 10:22:00 Test Item Value Reference Range Interpretation Comments Sodium Lvl (test code = Sodium Lvl) 140 135-145 [facility] [employer] GMZUR7964-18-94 10:22:00 Test Item Value Reference Range Interpretation Comments Potassium Lvl (test code = Potassium 3.8 3.5-5.1 Lvl) [facility] [employer] [id number] 10:22:00 Test Item Value Reference Range Interpretation Comments Chloride Lvl (test code = Chloride Lvl) 106 95-109 [facility] ICYZN4444-29-44 10:22:00 Test Item Value Reference Range Interpretation Comments Bili Total (test code = Bili Total) 0.4 0.2-1.3 [facility] [employer] [id number] 10:22:00 Test Item Value Reference Range Interpretation Comments Alk Phos (test code = Alk Phos) 74 39-136 [facility]2017-02-06 10:22:00 Test Item Value Reference Range Interpretation Comments eGFR (test code = eGFR) 19 [facility]2017-02-06 10:22:00 Test Item Value Reference Range Interpretation Comments Total Protein (test code = Total 5.2 6.4-8.4 Protein) [facility]2017-02-06 10:22:00 Test Item Value Reference Range Interpretation Comments ALT (test code = ALT) 822 See_Comment [Auto mated message] The system which ge nerated this result transmit rohit reference range : <=65. The reference range was not used to interpr et this result as reji l/abnormal. [facility]2017-02-06 10:22:00 Test Item Value Reference Range Interpretation Comments AST (test code = AST) 205 See_Comment [Auto mated message] The system which ge nerated this result transmit rohit reference range : <=37. The reference range was not used to interpr et this result as reji l/abnormal. [facility]2017-02-06 10:22:00 Test Item Value Reference Range Interpretation Comments Albumin Lvl (test code = Albumin Lvl) 1.8 3.5-5.0 [facility]2017-02-06 10:22:00 Test Item Value Reference Range Interpretation Comments BUN (test code = BUN) 54 7-22 [facility]2017-02-06 10:22:00 Test Item Value Reference Range Interpretation Comments Glucose Lvl (test code = Glucose Lvl) 143 70-99 [facility]2017-02-06 10:22:00 Test Item Value Reference Range Interpretation Comments Creatinine Lvl (test code = Creatinine 3.11 0.50-1.40 Lvl) [facility]2017-02-06 10:22:00 Test Item Value Reference Range Interpretation Comments B/C Ratio (test code = B/C Ratio) 17 6-25 [facility]2017-02-06 10:22:00 Test Item Value Reference Range Interpretation Comments AGAP (test code = AGAP) 16.8 10.0-20.0 [facility]2017-02-06 10:22:00 Test Item Value Reference Range Interpretation Comments Globulin (test code = Globulin) 3.4 2.7-4.2 [facility]2017-02-06 10:22:00 Test Item Value Reference Range Interpretation Comments A/G Ratio (test code = A/G Ratio) 0.5 0.7-1.6 [facility]2017-02-06 10:22:00 Test Item Value Reference Range Interpretation Comments Magnesium Lvl (test code = Magnesium 2.0 1.8-2.4 Lvl) [facility]2017-02-06 10:22:00 Test Item Value Reference Range Interpretation Comments Phosphorus (test code = Phosphorus) 3.7 2.5-4.5 [facility]EgqmvyoUXHHBSGUYU9379-31-77 10:22:00 Test Item Value Reference Range Interpretation Comments RDW (test code = RDW) 17.7 11.5-14.5 [facility] HospitalTssvwjlRQEQKWKJMS5198-19-73 10:22:00 Test Item Value Reference Range Interpretation Comments MCHC (test code = MCHC) 32.9 32.0-36.0 [facility] HospitalLklmqpyEENGIFZOQB2710-74-00 10:22:00 Test Item Value Reference Range Interpretation Comments Hct (test code = Hct) 25.4 36.0-48.0 [facility] HospitalGzglxhxBCEPBFATEM9495-97-50 10:22:00 Test Item Value Reference Range Interpretation Comments MCH (test code = MCH) 26.4 pg 27.0-31.0 [facility] HospitalAvhvakuCDBVEWESPN8337-23-54 10:22:00 Test Item Value Reference Range Interpretation Comments MCV (test code = MCV) 80.3 80.0-98.0 [facility] HospitalGwmrnnuHCTDKUFDDG9189-81-62 10:22:00 Test Item Value Reference Range Interpretation Comments MPV (test code = MPV) 11.4 7.4-10.4 [facility] HospitalRdcaroyISEQCVPJFR7616-82-04 10:22:00 Test Item Value Reference Range Interpretation Comments Platelet (test code = Platelet) 74 133-450 [facility] HospitalJugzgsrWECHIUPPKH6347-30-35 10:22:00 Test Item Value Reference Range Interpretation Comments RBC (test code = RBC) 3.16 4.20-5.40 [facility] HospitalLjtymwuTMBXWOJMHU9696-83-32 10:22:00 Test Item Value Reference Range Interpretation Comments WBC (test code = WBC) 5.3 3.7-10.4 [facility] HospitalRxyourzBCXNYBXTTC8684-59-23 10:22:00 Test Item Value Reference Range Interpretation Comments Hgb (test code = Hgb) 8.4 12.0-16.0 [facility] HospitalVjmkabdNBPWXXNCGV3511-88-59 10:22:00 Test Item Value Reference Range Interpretation Comments Monocytes (test code = Monocytes) 14.5 2.0-12.0 [facility] HospitalZgztmjjVGVVDHXZLC1005-01-70 10:22:00 Test Item Value Reference Range Interpretation Comments Lymphocytes (test code = Lymphocytes) 29.8 20.0-40.0 [facility] HospitalLeacsdwOFCFBDHLTY9644-69-05 10:22:00 Test Item Value Reference Range Interpretation Comments Eosinophils # (test code 0.1 See_Comment [A utomated message] The = Eosinophils #) system whic h generated this result tra nsmitted reference range : <=0.5. The reference r leo was not used to int erpret this result as normal/abnormal . [facility] HospitalPfwolppHNOIDBIYGJ6255-96-46 10:22:00 Test Item Value Reference Range Interpretation Comments Monocytes # (test code 0.8 See_Comment [Aut omated message] The = Monocytes #) system which generated this result tra nsmitted reference range : <=0.8. The reference r leo was not used to int erpret this result as normal/abnormal . [facility] HospitalItfuscsOXZBZTMUQZ0267-43-76 10:22:00 Test Item Value Reference Range Interpretation Comments Segs-Bands # (test code = Segs-Bands #) 2.9 1.5-8.1 [facility] HospitalDtrbpldFFZRYQBNPA3872-90-02 10:22:00 Test Item Value Reference Range Interpretation Comments Lymphocytes # (test code = Lymphocytes 1.6 1.0-5.5 #) [facility] HospitalFpscssmAXEPBYVCYG7197-35-89 10:22:00 Test Item Value Reference Range Interpretation Comments Basophils (test code = 0.4 See_Comment [Aut omated message] The Basophils) system which ge nerated this result tra nsmitted reference range : <=1.0. The reference r leo was not used to int erpret this result as normal/abnormal . [facility] HospitalHmhkzjbRVYWHWWPKQ5733-59-99 10:22:00 Test Item Value Reference Range Interpretation Comments Eosinophils (test code = 1.2 See_Comment [A utomated message] The Eosinophils) system which ge nerated this result tra nsmitted reference range : <=4.0. The reference r leo was not used to int erpret this result as normal/abnormal . [facility] CenterCbjzabbBUFVCLUMFQ5461-03-10 10:22:00 Test Item Value Reference Range Interpretation Comments Segs (test code = Segs) 54.1 45.0-75.0 [facility] CenterSPECIAL KCVHSDZMI8725-39-35 10:22:00 Test Item Value Reference Range Interpretation Comments Hgb A1C (test code = Hgb A1C) 8.9 [facility] CenterCARDIAC IKIGMIP6902-68-43 10:22:00 Test Item Value Reference Range Interpretation Comments Total CK (test code = Total CK) 190 12-191 [facility]2017-02-06 10:22:00 Test Item Value Reference Range Interpretation Comments Calcium Lvl (test code = Calcium Lvl) 7.8 8.5-10.5 [facility]ClipMineATRI[facility] B[facility] DAV[facility] MED[facility] CENTERVEUEO4299-33-83 10:22:00 Test Item Value Reference Range Interpretation Comments CO2 (test code = CO2) 21 24-32 [facility] CenterClipMineATRI[facility] MED[facility] CENTERKBWDQ1029-64-58 10:22:00 Test Item Value Reference Range Interpretation Comments Sodium Lvl (test code = Sodium Lvl) 140 135-145 [facility] CenterLagoon QEHTC1740-13-97 10:22:00 Test Item Value Reference Range Interpretation Comments Potassium Lvl (test code = Potassium 3.8 3.5-5.1 Lvl) [facility]ClipMineATRI[facility] MED[facility] CENTERODKGI1606-31-39 10:22:00 Test Item Value Reference Range Interpretation Comments Chloride Lvl (test code = Chloride Lvl) 106 95-109 [facility] CenterClipMineATRI[facility] MED[facility] CENTEROVCHH4948-43-79 10:22:00 Test Item Value Reference Range Interpretation Comments Bili Total (test code = Bili Total) 0.4 0.2-1.3 [facility]2017-02-06 10:22:00 Test Item Value Reference Range Interpretation Comments Alk Phos (test code = Alk Phos) 74 39-136 [facility]2017-02-06 10:22:00 Test Item Value Reference Range Interpretation Comments eGFR (test code = eGFR) 19 [facility]2017-02-06 10:22:00 Test Item Value Reference Range Interpretation Comments Total Protein (test code = Total 5.2 6.4-8.4 Protein) [facility]2017-02-06 10:22:00 Test Item Value Reference Range Interpretation Comments ALT (test code = ALT) 822 See_Comment [Auto mated message] The system which ge nerated this result transmit rohit reference range : <=65. The reference range was not used to interpr et this result as reji l/abnormal. [facility]2017-02-06 10:22:00 Test Item Value Reference Range Interpretation Comments AST (test code = AST) 205 See_Comment [Auto mated message] The system which ge nerated this result transmit rohit reference range : <=37. The reference range was not used to interpr et this result as reji l/abnormal. [place] 141207-02-06 10:22:00 Test Item Value Reference Range Interpretation Comments Albumin Lvl (test code = Albumin Lvl) 1.8 3.5-5.0 [facility]2017-02-06 10:22:00 Test Item Value Reference Range Interpretation Comments BUN (test code = BUN) 54 7-22 [facility]2017-02-06 10:22:00 Test Item Value Reference Range Interpretation Comments Glucose Lvl (test code = Glucose Lvl) 143 70-99 [facility]2017-02-06 10:22:00 Test Item Value Reference Range Interpretation Comments Creatinine Lvl (test code = Creatinine 3.11 0.50-1.40 Lvl) [facility]2017-02-06 10:22:00 Test Item Value Reference Range Interpretation Comments B/C Ratio (test code = B/C Ratio) 17 6-25 [facility]2017-02-06 10:22:00 Test Item Value Reference Range Interpretation Comments AGAP (test code = AGAP) 16.8 10.0-20.0 [facility]2017-02-06 10:22:00 Test Item Value Reference Range Interpretation Comments Globulin (test code = Globulin) 3.4 2.7-4.2 [facility]2017-02-06 10:22:00 Test Item Value Reference Range Interpretation Comments A/G Ratio (test code = A/G Ratio) 0.5 0.7-1.6 [facility]2017-02-06 10:22:00 Test Item Value Reference Range Interpretation Comments Magnesium Lvl (test code = Magnesium 2.0 1.8-2.4 Lvl) [facility]2017-02-06 10:22:00 Test Item Value Reference Range Interpretation Comments Phosphorus (test code = Phosphorus) 3.7 2.5-4.5 [facility] HospitalBfjernnZBQFSZMMFV5316-80-12 10:22:00 Test Item Value Reference Range Interpretation Comments RDW (test code = RDW) 17.7 11.5-14.5 [facility] HospitalFhjlqbaYHSUEUUKLQ1296-76-58 10:22:00 Test Item Value Reference Range Interpretation Comments MCHC (test code = MCHC) 32.9 32.0-36.0 [facility] HospitalFdurvqrERFJJGSCCD9851-17-58 10:22:00 Test Item Value Reference Range Interpretation Comments Hct (test code = Hct) 25.4 36.0-48.0 [facility] HospitalYxvxaqkVKWNQLFLIM4812-95-90 10:22:00 Test Item Value Reference Range Interpretation Comments MCH (test code = MCH) 26.4 pg 27.0-31.0 [facility] HospitalZgcynjuMVXQFGIYVG1425-92-06 10:22:00 Test Item Value Reference Range Interpretation Comments MCV (test code = MCV) 80.3 80.0-98.0 [facility] HospitalUptrkjmNNGCZREPMM0897-62-13 10:22:00 Test Item Value Reference Range Interpretation Comments MPV (test code = MPV) 11.4 7.4-10.4 [facility] HospitalByzfjgtSVJJJTZVDP7464-52-24 10:22:00 Test Item Value Reference Range Interpretation Comments Platelet (test code = Platelet) 74 133-450 [facility] HospitalOwqdijmNPOTIMBJQZ2478-30-31 10:22:00 Test Item Value Reference Range Interpretation Comments RBC (test code = RBC) 3.16 4.20-5.40 [facility] HospitalTdbdtsnOEPTQFRFFO3699-88-85 10:22:00 Test Item Value Reference Range Interpretation Comments WBC (test code = WBC) 5.3 3.7-10.4 [facility] HospitalXocdotlXSMAAILWUA0328-11-30 10:22:00 Test Item Value Reference Range Interpretation Comments Hgb (test code = Hgb) 8.4 12.0-16.0 [facility] HospitalJgamxisOXMSCZTSZY2287-02-01 10:22:00 Test Item Value Reference Range Interpretation Comments Monocytes (test code = Monocytes) 14.5 2.0-12.0 [facility] HospitalXbikwaeLUTZJWNIUD2453-93-75 10:22:00 Test Item Value Reference Range Interpretation Comments Lymphocytes (test code = Lymphocytes) 29.8 20.0-40.0 [facility] HospitalFyclushRKRENMARSM2491-76-15 10:22:00 Test Item Value Reference Range Interpretation Comments Eosinophils # (test code 0.1 See_Comment [A utomated message] The = Eosinophils #) system whic h generated this result tra nsmitted reference range : <=0.5. The reference r leo was not used to int erpret this result as normal/abnormal . [facility] HospitalBqavjifUHIODTIKXQ6326-31-65 10:22:00 Test Item Value Reference Range Interpretation Comments Monocytes # (test code 0.8 See_Comment [Aut omated message] The = Monocytes #) system which generated this result tra nsmitted reference range : <=0.8. The reference r leo was not used to int erpret this result as normal/abnormal . [facility] HospitalEidislfMRXJOXLSVH6467-97-84 10:22:00 Test Item Value Reference Range Interpretation Comments Segs-Bands # (test code = Segs-Bands #) 2.9 1.5-8.1 [facility] HospitalWgnhozmHMHVJSCPLJ5838-87-68 10:22:00 Test Item Value Reference Range Interpretation Comments Lymphocytes # (test code = Lymphocytes 1.6 1.0-5.5 #) [facility] HospitalFlybgiqZSTOEVORCG5357-37-41 10:22:00 Test Item Value Reference Range Interpretation Comments Basophils (test code = 0.4 See_Comment [Aut omated message] The Basophils) system which ge nerated this result tra nsmitted reference range : <=1.0. The reference r leo was not used to int erpret this result as normal/abnormal . [facility] HospitalMvdokxxBLMHTMMMIT4811-47-83 10:22:00 Test Item Value Reference Range Interpretation Comments Eosinophils (test code = 1.2 See_Comment [A utomated message] The Eosinophils) system which ge nerated this result tra nsmitted reference range : <=4.0. The reference r leo was not used to int erpret this result as normal/abnormal . [facility] HospitalSqxugrwYTZOFCKRVK9515-69-52 10:22:00 Test Item Value Reference Range Interpretation Comments Segs (test code = Segs) 54.1 45.0-75.0 [facility] TFOGCVTCG8304-21-02 10:22:00 Test Item Value Reference Range Interpretation Comments Hgb A1C (test code = Hgb A1C) 8.9 [facility] CenterCARDIAC KUQVMGD1092-80-90 10:22:00 Test Item Value Reference Range Interpretation Comments Total CK (test code = Total CK) 190 12-191 [facility]2017-02-06 10:22:00 Test Item Value Reference Range Interpretation Comments Calcium Lvl (test code = Calcium Lvl) 7.8 8.5-10.5 [facility]2017-02-06 10:22:00 Test Item Value Reference Range Interpretation Comments CO2 (test code = CO2) 21 24-32 [facility]2017-02-06 10:22:00 Test Item Value Reference Range Interpretation Comments Sodium Lvl (test code = Sodium Lvl) 140 135-145 [facility]2017-02-06 10:22:00 Test Item Value Reference Range Interpretation Comments Potassium Lvl (test code = Potassium 3.8 3.5-5.1 Lvl) [facility]2017-02-06 10:22:00 Test Item Value Reference Range Interpretation Comments Chloride Lvl (test code = Chloride Lvl) 106 95-109 [facility]2017-02-06 10:22:00 Test Item Value Reference Range Interpretation Comments Bili Total (test code = Bili Total) 0.4 0.2-1.3 [facility]2017-02-06 10:22:00 Test Item Value Reference Range Interpretation Comments Alk Phos (test code = Alk Phos) 74 39-136 [facility]2017-02-06 10:22:00 Test Item Value Reference Range Interpretation Comments eGFR (test code = eGFR) 19 [facility]2017-02-06 10:22:00 Test Item Value Reference Range Interpretation Comments Total Protein (test code = Total 5.2 6.4-8.4 Protein) [facility]2017-02-06 10:22:00 Test Item Value Reference Range Interpretation Comments ALT (test code = ALT) 822 See_Comment [Auto mated message] The system which ge nerated this result transmit rohit reference range : <=65. The reference range was not used to interpr et this result as reji l/abnormal. [facility]2017-02-06 10:22:00 Test Item Value Reference Range Interpretation Comments AST (test code = AST) 205 See_Comment [Auto mated message] The system which ge nerated this result transmit rohit reference range : <=37. The reference range was not used to interpr et this result as reji l/abnormal. [facility]2017-02-06 10:22:00 Test Item Value Reference Range Interpretation Comments Albumin Lvl (test code = Albumin Lvl) 1.8 3.5-5.0 [facility]2017-02-06 10:22:00 Test Item Value Reference Range Interpretation Comments BUN (test code = BUN) 54 7-22 [facility]2017-02-06 10:22:00 Test Item Value Reference Range Interpretation Comments Glucose Lvl (test code = Glucose Lvl) 143 70-99 [facility]2017-02-06 10:22:00 Test Item Value Reference Range Interpretation Comments Creatinine Lvl (test code = Creatinine 3.11 0.50-1.40 Lvl) [facility]2017-02-06 10:22:00 Test Item Value Reference Range Interpretation Comments B/C Ratio (test code = B/C Ratio) 17 6-25 [facility]2017-02-06 10:22:00 Test Item Value Reference Range Interpretation Comments AGAP (test code = AGAP) 16.8 10.0-20.0 [facility]2017-02-06 10:22:00 Test Item Value Reference Range Interpretation Comments Globulin (test code = Globulin) 3.4 2.7-4.2 [facility]2017-02-06 10:22:00 Test Item Value Reference Range Interpretation Comments A/G Ratio (test code = A/G Ratio) 0.5 0.7-1.6 [facility]2017-02-06 10:22:00 Test Item Value Reference Range Interpretation Comments Magnesium Lvl (test code = Magnesium 2.0 1.8-2.4 Lvl) [facility]2017-02-06 10:22:00 Test Item Value Reference Range Interpretation Comments Phosphorus (test code = Phosphorus) 3.7 2.5-4.5 [facility] HospitalKbtpmvqRFUSDVKSLI6657-04-51 10:22:00 Test Item Value Reference Range Interpretation Comments RDW (test code = RDW) 17.7 11.5-14.5 [facility] HospitalZimozqsLHXKIQITEI3544-65-93 10:22:00 Test Item Value Reference Range Interpretation Comments MCHC (test code = MCHC) 32.9 32.0-36.0 [facility] HospitalUzmdardPUTUTREOZU8352-63-22 10:22:00 Test Item Value Reference Range Interpretation Comments Hct (test code = Hct) 25.4 36.0-48.0 [facility] HospitalXppyiawNGJBKWCHWV7377-30-54 10:22:00 Test Item Value Reference Range Interpretation Comments MCH (test code = MCH) 26.4 pg 27.0-31.0 [facility] HospitalAdqqwsvNQYBHSYEHK3670-21-43 10:22:00 Test Item Value Reference Range Interpretation Comments MCV (test code = MCV) 80.3 80.0-98.0 [facility] HospitalDxtphdbESJRFKQZSN4291-81-91 10:22:00 Test Item Value Reference Range Interpretation Comments MPV (test code = MPV) 11.4 7.4-10.4 [facility] HospitalAglizccIZRKBAWOEE6988-59-02 10:22:00 Test Item Value Reference Range Interpretation Comments Platelet (test code = Platelet) 74 133-450 [facility] HospitalGeguifvDUTOCRKWNG1963-63-47 10:22:00 Test Item Value Reference Range Interpretation Comments RBC (test code = RBC) 3.16 4.20-5.40 [facility] HospitalLoybvtlWWEIVPBSBX2109-36-02 10:22:00 Test Item Value Reference Range Interpretation Comments WBC (test code = WBC) 5.3 3.7-10.4 [facility] HospitalTpkfhreLEHDLEWMGF6823-63-49 10:22:00 Test Item Value Reference Range Interpretation Comments Hgb (test code = Hgb) 8.4 12.0-16.0 [facility] HospitalNrtxldcRDXTJJOQSF4203-76-31 10:22:00 Test Item Value Reference Range Interpretation Comments Monocytes (test code = Monocytes) 14.5 2.0-12.0 [facility] HospitalUkezqmrUJLOPJOSVL5144-92-26 10:22:00 Test Item Value Reference Range Interpretation Comments Lymphocytes (test code = Lymphocytes) 29.8 20.0-40.0 [facility] HospitalCygwqdhYKEWVGBIWZ0987-73-00 10:22:00 Test Item Value Reference Range Interpretation Comments Eosinophils # (test code 0.1 See_Comment [A utomated message] The = Eosinophils #) system whic h generated this result tra nsmitted reference range : <=0.5. The reference r leo was not used to int erpret this result as normal/abnormal . [facility] HospitalIuinoquFIHPFYDQTJ4949-00-35 10:22:00 Test Item Value Reference Range Interpretation Comments Monocytes # (test code 0.8 See_Comment [Aut omated message] The = Monocytes #) system which generated this result tra nsmitted reference range : <=0.8. The reference r leo was not used to int erpret this result as normal/abnormal . [facility] HospitalGyamsxrBETDQEPZDI9954-46-12 10:22:00 Test Item Value Reference Range Interpretation Comments Segs-Bands # (test code = Segs-Bands #) 2.9 1.5-8.1 [facility] HospitalXiqhnaoTGICILCVTY5707-53-68 10:22:00 Test Item Value Reference Range Interpretation Comments Lymphocytes # (test code = Lymphocytes 1.6 1.0-5.5 #) [facility] HospitalWtedywfEXOFOULNYU7865-88-38 10:22:00 Test Item Value Reference Range Interpretation Comments Basophils (test code = 0.4 See_Comment [Aut omated message] The Basophils) system which ge nerated this result tra nsmitted reference range : <=1.0. The reference r leo was not used to int erpret this result as normal/abnormal . [facility] HospitalImujwwzEUAYJSHWZI5737-99-47 10:22:00 Test Item Value Reference Range Interpretation Comments Eosinophils (test code = 1.2 See_Comment [A utomated message] The Eosinophils) system which ge nerated this result tra nsmitted reference range : <=4.0. The reference r leo was not used to int erpret this result as normal/abnormal . [facility] HospitalCqrlucjHFVGVLZQBJ9341-66-72 10:22:00 Test Item Value Reference Range Interpretation Comments Segs (test code = Segs) 54.1 45.0-75.0 [facility] SBWIAIGDH4814-23-15 10:22:00 Test Item Value Reference Range Interpretation Comments Hgb A1C (test code = Hgb A1C) 8.[address] [facility]CARD[facility]AC GQSMQFZ7112-33-26 17:40:00 Test Item Value Reference Range Interpretation Comments Total CK (test code = Total CK) 344 12 [facility]AqkaszqWPBLLIYDOP2226-20-21 17:40:00 Test Item Value Reference Range Interpretation Comments IVETTE (test code = IVETTE) Positive *ABN*(07/26/16 11:40 AM) [facility] HkirazrJBMNPZBKZG1044-21-30 17:40:00 Test Item Value Reference Range Interpretation Comments CRUSHER OPERATOR Ab (test code = CRUSHER OPERATOR Ab) no gt [facility] AoysepfGAWPOEGKGO6353-56-17 17:40:00 Test Item Value Reference Range Interpretation Comments Sm Ab (test code = Sm Ab) no gt [facility] OyxjzeoFVORZEOJRS1871-40-72 17:40:00 Test Item Value Reference Range Interpretation Comments IVETTE Interp (test code Pattern appears = IVETTE Interp) Nucleolar. [facility] QxxwrepWPQNSWNNLA1819-66-17 17:40:00 Test Item Value Reference Range Interpretation Comments SS-B (La) Ab (test code = SS-B (La) Ab) no gt [facility] ZqlphrjWWCNJUJJSS8479-58-46 17:40:00 Test Item Value Reference Range Interpretation Comments SS-A (Ro) Ab (test code = SS-A (Ro) Ab) no gt [facility] QtaxslwWSJSWFAIUD4566-90-17 17:40:00 Test Item Value Reference Range Interpretation Comments DNA Ab (DS) (test Negative (07/26/16 11:40 code = DNA Ab (DS)) AM) [facility] CenterFoxxiifMBBOYDZTBX3128-51-08 17:40:00 Test Item Value Reference Range Interpretation Comments IVETTE Titer (test code = 1:40 *ABN*(07/26/16 IVETTE Titer) 11:40 AM) [facility] CenterannURINE NBOH8638-01-54 17:40:00 Test Item Value Reference Range Interpretation Comments U Sodium (test code = U Sodium) 21 [facility] CenterannCARDIAC KTSQKKK6491-64-30 17:40:00 Test Item Value Reference Range Interpretation Comments Total CK (test code = Total CK) 344 12191 [facility] CenterKxbklbjKWWXJHWXHL7667-91-61 17:40:00 Test Item Value Reference Range Interpretation Comments IVETTE (test code = IVETTE) Positive *ABN*(07/26/16 11:40 AM) [facility] OqwqzitACMFNZQFVI1180-71-84 17:40:00 Test Item Value Reference Range Interpretation Comments CRUSHER OPERATOR Ab (test code = CRUSHER OPERATOR Ab) no gt [facility] RvfeokcBOTSOARAXV1056-80-57 17:40:00 Test Item Value Reference Range Interpretation Comments Sm Ab (test code = Sm Ab) no gt [facility] JmxmhznKTDKXZATEG8938-90-45 17:40:00 Test Item Value Reference Range Interpretation Comments IVETTE Interp (test code Pattern appears = IVETTE Interp) Nucleolar. [facility] AfrdjqaCHFDRLCFTY9060-04-22 17:40:00 Test Item Value Reference Range Interpretation Comments SS-B (La) Ab (test code = SS-B (La) Ab) no gt [facility] IskdnwdGPSUCKSKHA8616-56-82 17:40:00 Test Item Value Reference Range Interpretation Comments SS-A (Ro) Ab (test code = SS-A (Ro) Ab) no gt [facility] QutocwhBWHUMLOSGV3131-50-48 17:40:00 Test Item Value Reference Range Interpretation Comments DNA Ab (DS) (test Negative (07/26/16 11:40 code = DNA Ab (DS)) AM) [facility] AzmqvyoPBOCJWLFOS9705-40-20 17:40:00 Test Item Value Reference Range Interpretation Comments IVETTE Titer (test code = 1:40 *ABN*(07/26/16 IVETTE Titer) 11:40 AM) [facility]annURINE PBFK5957-59-23 17:40:00 Test Item Value Reference Range Interpretation Comments U Sodium (test code = U Sodium) 21 [facility]annCARDIAC HWNJOPX6517-69-17 17:40:00 Test Item Value Reference Range Interpretation Comments Total CK (test code = Total CK) 344 12-191 [facility] TobuxfdSHTBRAMQYG5625-25-49 17:40:00 Test Item Value Reference Range Interpretation Comments IVETTE (test code = IVETTE) Positive *ABN*(07/26/16 11:40 AM) [facility] FpybcucOKILAODUKQ3104-24-96 17:40:00 Test Item Value Reference Range Interpretation Comments CRUSHER OPERATOR Ab (test code = CRUSHER OPERATOR Ab) no gt [facility] XgctkfqJWQEPESSFM8695-55-14 17:40:00 Test Item Value Reference Range Interpretation Comments Sm Ab (test code = Sm Ab) no gt [facility] CusmkueJYTTKEJJBA4346-42-47 17:40:00 Test Item Value Reference Range Interpretation Comments IVETTE Interp (test code Pattern appears = IVETTE Interp) Nucleolar. [facility] WmbvciaDPHSADPPGF9492-57-07 17:40:00 Test Item Value Reference Range Interpretation Comments SS-B (La) Ab (test code = SS-B (La) Ab) [facility]t [facility]facfplASSEYMIASM4732-22-79 17:40:00 Test Item Value Reference Range Interpretation Comments SS-A (Ro) Ab (test code = SS-A (Ro) Ab) no gt [facility] TcpzjgdKKHDLPZJYU3069-20-18 17:40:00 Test Item Value Reference Range Interpretation Comments DNA Ab (DS) (test Negative (07/26/16 11:40 code = DNA Ab (DS)) AM) [facility]FnomplzNMSWXUONBF0317-77-33 17:40:00 Test Item Value Reference Range Interpretation Comments IVETTE Titer (test code = 1:40 *ABN*(07/26/16 IVETTE Titer) 11:40 AM) [facility]annUR[facility] COVE8403-21-82 17:40:00 Test Item Value Reference Range Interpretation Comments U Sodium (test code = U Sodium) 21 [facility]annCARDIAC XBQKUKF6424-21-11 17:40:00 Test Item Value Reference Range Interpretation Comments Total CK (test code = Total CK) 344 12-191 [facility] CenterXcwgkdcAYEJRAGESV5091-74-87 17:40:00 Test Item Value Reference Range Interpretation Comments IVETTE (test code = IVETTE) Positive *ABN*(07/26/16 11:40 AM) [facility] CenterCxrnaigJCCWBHTVAU7235-04-62 17:40:00 Test Item Value Reference Range Interpretation Comments CRUSHER OPERATOR Ab (test code = CRUSHER OPERATOR Ab) no gt [facility] JlslqzsPRCTLNPCCN7989-21-32 17:40:00 Test Item Value Reference Range Interpretation Comments Sm Ab (test code = Sm Ab) no [facility] BsitgahEZDNRTYMPF9917-89-31 17:40:00 Test Item Value Reference Range Interpretation Comments IVETTE Interp (test code Pattern appears = IVETTE Interp) Nucleolar. [facility] RkqykjvFNKGTAPZWZ4831-74-91 17:40:00 Test Item Value Reference Range Interpretation Comments SS-B (La) Ab (test code = SS-B (La) Ab) no [facility] TardjxfRTVULCGRFO1403-89-29 17:40:00 Test Item Value Reference Range Interpretation Comments SS-A (Ro) Ab (test code = SS-A (Ro) Ab) no gt [facility] MvhkfibFJDKNNWRKF7193-41-64 17:40:00 Test Item Value Reference Range Interpretation Comments DNA Ab (DS) (test Negative (07/26/16 11:40 code = DNA Ab (DS)) AM) [facility] WfoluyvDHFSZUXUZF5055-96-73 17:40:00 Test Item Value Reference Range Interpretation Comments IVETTE Titer (test code = 1:40 *ABN*(07/26/16 IVETTE Titer) 11:40 AM) [facility]ann[facility] UDVH5544-14-38 17:40:00 Test Item Value Reference Range Interpretation Comments U Sodium (test code = U Sodium) [address] [facility] ZYJXXWY3677-68-30 17:40:00 Test Item Value Reference Range Interpretation Comments Total CK (test code = Total CK) 344 12-191 [facility] YeskwtyZUKXBHJLHD4349-67-28 17:40:00 Test Item Value Reference Range Interpretation Comments IVETTE (test code = IVETTE) Positive *ABN*(07/26/16 11:40 AM) [facility] CenterTketbsjJOPWUGKOLR5216-07-26 17:40:00 Test Item Value Reference Range Interpretation Comments CRUSHER OPERATOR Ab (test code = CRUSHER OPERATOR Ab) no gt [facility] JtytximYCAWIFZEGD0859-24-52 17:40:00 Test Item Value Reference Range Interpretation Comments Sm Ab (test code = Sm Ab) no gt [facility] BhcsjwtZKEXDATGZW9880-22-54 17:40:00 Test Item Value Reference Range Interpretation Comments IVETTE Interp (test code Pattern appears = IVETTE Interp) Nucleolar. [facility] CenterLtpdyieQXOEHMKGGW8536-93-00 17:40:00 Test Item Value Reference Range Interpretation Comments SS-B (La) Ab (test code = SS-B (La) Ab) no gt [facility] IsadwawHGHSUZCMWH5695-25-46 17:40:00 Test Item Value Reference Range Interpretation Comments SS-A (Ro) Ab (test code = SS-A (Ro) Ab) no [facility] EygfcnwQLKBJLHOFV6066-40-87 17:40:00 Test Item Value Reference Range Interpretation Comments DNA Ab (DS) (test Negative (07/26/16 11:40 code = DNA Ab (DS)) AM) [facility] CenterZazxioqIDYKSCITGV7561-54-54 17:40:00 Test Item Value Reference Range Interpretation Comments IVETTE Titer (test code = 1:40 *ABN*(07/26/16 IVETTE Titer) 11:40 AM) [facility]2017-02-05 17:40:00 Test Item Value Reference Range Interpretation Comments U Sodium (test code = U Sodium) 21 [facility]OfomqccXBSXJZCSCN1591-14-06 14:00:00 Test Item Value Reference Range Interpretation Comments INR (test code = INR) 1.11 0.85-1.17 [facility]PnpanzaWCFTAQOHHK8796-68-76 14:00:00 Test Item Value Reference Range Interpretation Comments PT (test code = PT) 14.5 s 12.0-14.7 [facility]HwtkftrBWZSGNYWCX8684-34-78 14:00:00 Test Item Value Reference Range Interpretation Comments Hep A IgM (test code Negative *NA*(07/26/16 = Hep A IgM) 8:00 AM) [facility] CenterCmhnknkTPSJYKMFYP6942-01-26 14:00:00 Test Item Value Reference Range Interpretation Comments Hep B Core IgM (test Negative *NA*(07/26/16 code = Hep B Core 8:00 AM) IgM) [facility] CenterEwstdqbMVPUIBDBOU6794-19-19 14:00:00 Test Item Value Reference Range Interpretation Comments Hep C Ab (test code = Negative *NA*(07/26/16 Hep C Ab) 8:00 AM) [facility] CenterVbbpzndAOKHWCAYDJ8199-18-06 14:00:00 Test Item Value Reference Range Interpretation Comments Hep Bs Ag (test code Negative *NA*(07/26/16 = Hep Bs Ag) 8:00 AM) [facility]PomwxfnPHJNBSFNEF6714-54-55 14:00:00 Test Item Value Reference Range Interpretation Comments INR (test code = INR) 1.11 0.85-1.17 [facility]KjawxrmWLAKFMRUHV5040-78-02 14:00:00 Test Item Value Reference Range Interpretation Comments PT (test code = PT) 14.5 s 12.0-14.7 [facility] CenterRkrvkjiCDBKINVJXB4171-25-04 14:00:00 Test Item Value Reference Range Interpretation Comments Hep A IgM (test code Negative *NA*(07/26/16 = Hep A IgM) 8:00 AM) [facility] CenterIkgtvddIGUMPDMZYI4037-22-60 14:00:00 Test Item Value Reference Range Interpretation Comments Hep B Core IgM (test Negative *NA*(07/26/16 code = Hep B Core 8:00 AM) IgM) [facility] HospitalTjxfdxfYALSWDKKOJ9348-19-31 14:00:00 Test Item Value Reference Range Interpretation Comments Hep C Ab (test code = Negative *NA*(07/26/16 Hep C Ab) 8:00 AM) [facility] HospitalDhaebsuIUZPAJFOEH3866-96-31 14:00:00 Test Item Value Reference Range Interpretation Comments Hep Bs Ag (test code Negative *NA*(07/26/16 = Hep Bs Ag) 8:00 AM) [facility]UxmufxqONQRLECLVX9232-26-02 14:00:00 Test Item Value Reference Range Interpretation Comments INR (test code = INR) 1.11 0.85-1.17 [facility] HospitalFgsukseHXVQGPDIOP8518-89-16 14:00:00 Test Item Value Reference Range Interpretation Comments PT (test code = PT) 14.5 s 12.0-14.7 [facility] HospitalQinfccgYOTSCEPIDI8750-34-30 14:00:00 Test Item Value Reference Range Interpretation Comments Hep A IgM (test code Negative *NA*(07/26/16 = Hep A IgM) 8:00 AM) [facility] HospitalJepaslhRMTLBCJURZ3970-99-40 14:00:00 Test Item Value Reference Range Interpretation Comments Hep B Core IgM (test Negative *NA*(07/26/16 code = Hep B Core 8:00 AM) IgM) [facility] HospitalDwzznlkPEXRVFGGUX6712-10-53 14:00:00 Test Item Value Reference Range Interpretation Comments Hep C Ab (test code = Negative *NA*(07/26/16 Hep C Ab) 8:00 AM) [facility] HospitalXoxvcgmZBWXQPQBLE2792-19-94 14:00:00 Test Item Value Reference Range Interpretation Comments Hep Bs Ag (test code Negative *NA*(07/26/16 = Hep Bs Ag) 8:00 AM) [facility] HospitalKjksaukKJABNTZLXI1814-75-32 14:00:00 Test Item Value Reference Range Interpretation Comments INR (test code = INR) 1.11 0.85-1.17 [facility] HospitalYujbxnkTTYSLNMOUK5681-75-92 14:00:00 Test Item Value Reference Range Interpretation Comments PT (test code = PT) 14.5 s 12.0-14.7 [facility] HospitalRwzdigsMHXJCBIWTJ4322-88-88 14:00:00 Test Item Value Reference Range Interpretation Comments Hep A IgM (test code Negative *NA*(07/26/16 = Hep A IgM) 8:00 AM) [facility] CenterNwhrtnmCJDCCHKUVR7971-54-96 14:00:00 Test Item Value Reference Range Interpretation Comments Hep B Core IgM (test Negative *NA*(07/26/16 code = Hep B Core 8:00 AM) IgM) [facility] HospitalZoejnckTGBUPXJEWN3011-67-22 14:00:00 Test Item Value Reference Range Interpretation Comments Hep C Ab (test code = Negative *NA*(07/26/16 Hep C Ab) 8:00 AM) [facility] CenterQgvnttoAAZTTDHBAN3534-78-99 14:00:00 Test Item Value Reference Range Interpretation Comments Hep Bs Ag (test code Negative *NA*(07/26/16 = Hep Bs Ag) 8:00 AM) [facility] HospitalOgztsfsERPJEWJNAN5118-89-47 14:00:00 Test Item Value Reference Range Interpretation Comments INR (test code = INR) 1.11 0.85-1.17 [facility] HospitalFvvnvqfDSMJBLKNHP3005-09-53 14:00:00 Test Item Value Reference Range Interpretation Comments PT (test code = PT) 14.5 s 12.0-14.7 [facility] CenterAuftiizSVCOMDZJZY6304-99-01 14:00:00 Test Item Value Reference Range Interpretation Comments Hep A IgM (test code Negative *NA*(07/26/16 = Hep A IgM) 8:00 AM) [facility] HospitalSmlozewMGJWSCIKQN2207-75-28 14:00:00 Test Item Value Reference Range Interpretation Comments Hep B Core IgM (test Negative *NA*(07/26/16 code = Hep B Core 8:00 AM) IgM) [facility] CenterTikyjgsNGFKRXHQOY4773-49-40 14:00:00 Test Item Value Reference Range Interpretation Comments Hep C Ab (test code = Negative *NA*(07/26/16 Hep C Ab) 8:00 AM) [facility] CenterWaxkkziCFABHWGZLI2158-23-72 14:00:00 Test Item Value Reference Range Interpretation Comments Hep Bs Ag (test code Negative *NA*(07/26/16 = Hep Bs Ag) 8:00 AM) [facility]2017-02-05 10:42:00 Test Item Value Reference Range Interpretation Comments B/C Ratio (test code = B/C Ratio) 17 6-25 [facility]2017-02-05 10:42:00 Test Item Value Reference Range Interpretation Comments ALT (test code = ALT) 1232 See_Comment [Auto mated message] The system which ge nerated this result transmit rohit reference range : <=65. The reference range was not used to interpr et this result as reji l/abnormal. [facility]2017-02-05 10:42:00 Test Item Value Reference Range Interpretation Comments A/G Ratio (test code = A/G Ratio) 0.5 0.7-1.6 [facility]2017-02-05 10:42:00 Test Item Value Reference Range Interpretation Comments Bili Total (test code = Bili Total) 0.3 0.2-1.3 [facility]2017-02-05 10:42:00 Test Item Value Reference Range Interpretation Comments Alk Phos (test code = Alk Phos) 79 39-136 [facility]2017-02-05 10:42:00 Test Item Value Reference Range Interpretation Comments AST (test code = AST) 586 See_Comment [Auto mated message] The system which ge nerated this result transmit rohit reference range : <=37. The reference range was not used to interpr et this result as reji l/abnormal. [facility]2017-02-05 10:42:00 Test Item Value Reference Range Interpretation Comments Total Protein (test code = Total 5.5 6.4-8.4 Protein) [facility]2017-02-05 10:42:00 Test Item Value Reference Range Interpretation Comments Globulin (test code = Globulin) 3.7 2.7-4.2 [facility]2017-02-05 10:42:00 Test Item Value Reference Range Interpretation Comments Albumin Lvl (test code = Albumin Lvl) 1.8 3.5-5.0 [facility]2017-02-05 10:42:00 Test Item Value Reference Range Interpretation Comments Magnesium Lvl (test code = Magnesium 2.1 1.8-2.4 Lvl) [facility] HospitalFvnfridBVDXUWBDOV4986-36-87 10:42:00 Test Item Value Reference Range Interpretation Comments Acanthocyte (test code = Acanthocyte) [facility] HospitalBdrgryjTYUJHCPOPS2296-99-05 10:42:00 Test Item Value Reference Range Interpretation Comments Rouleaux (test code = Present *ABN*(07/26/16 Rouleaux) 4:42 AM) [facility] HospitalOtbrlqxCQBIZWIFDF8779-44-87 10:42:00 Test Item Value Reference Range Interpretation Comments Anisocyte (test code = 1+ *ABN*(07/26/16 4:42 Anisocyte) AM) [facility] HospitalJejcauwRYJFWCVWYS7987-99-26 10:42:00 Test Item Value Reference Range Interpretation Comments Basophils # (test code 0.1 See_Comment [Aut omated message] The = Basophils #) system which generated this result tra nsmitted reference range : <=0.2. The reference r leo was not used to int erpret this result as normal/abnormal . [facility] HospitalVbjsxawTKAQCXXARK9067-65-91 10:42:00 Test Item Value Reference Range Interpretation Comments Large Plt (test code Moderate *ABN*(07/26/16 = Large Plt) 4:42 AM) [facility] CenterHllwgerVJUWINFRBX1889-96-04 10:42:00 Test Item Value Reference Range Interpretation Comments C4 Complement (test code = C4 42 16-47 Complement) [facility]2017-02-05 10:42:00 Test Item Value Reference Range Interpretation Comments B/C Ratio (test code = B/C Ratio) 17 6-25 [facility]2017-02-05 10:42:00 Test Item Value Reference Range Interpretation Comments ALT (test code = ALT) 1232 See_Comment [Auto mated message] The system which ge nerated this result transmit rohit reference range : <=65. The reference range was not used to interpr et this result as reji l/abnormal. [facility]2017-02-05 10:42:00 Test Item Value Reference Range Interpretation Comments A/G Ratio (test code = A/G Ratio) 0.5 0.7-1.6 [facility]2017-02-05 10:42:00 Test Item Value Reference Range Interpretation Comments Bili Total (test code = Bili Total) 0.3 0.2-1.3 [facility]2017-02-05 10:42:00 Test Item Value Reference Range Interpretation Comments Alk Phos (test code = Alk Phos) 79 39-136 [facility]2017-02-05 10:42:00 Test Item Value Reference Range Interpretation Comments AST (test code = AST) 586 See_Comment [Auto mated message] The system which ge nerated this result transmit rohit reference range : <=37. The reference range was not used to interpr et this result as reji l/abnormal. [facility]2017-02-05 10:42:00 Test Item Value Reference Range Interpretation Comments Total Protein (test code = Total 5.5 6.4-8.4 Protein) [facility]2017-02-05 10:42:00 Test Item Value Reference Range Interpretation Comments Globulin (test code = Globulin) 3.7 2.7-4.2 [facility]2017-02-05 10:42:00 Test Item Value Reference Range Interpretation Comments Albumin Lvl (test code = Albumin Lvl) 1.8 3.5-5.0 [facility]2017-02-05 10:42:00 Test Item Value Reference Range Interpretation Comments Magnesium Lvl (test code = Magnesium 2.1 1.8-2.4 Lvl) [facility] HospitalBxibhahVNHKCWSDHQ6440-73-78 10:42:00 Test Item Value Reference Range Interpretation Comments Acanthocyte (test code = Acanthocyte) [facility] HospitalQqkwtomVUDNRRTPRF9010-16-27 10:42:00 Test Item Value Reference Range Interpretation Comments Rouleaux (test code = Present *ABN*(07/26/16 Rouleaux) 4:42 AM) [facility] HospitalBydcnovTVRTOVIPSA3719-41-87 10:42:00 Test Item Value Reference Range Interpretation Comments Anisocyte (test code = 1+ *ABN*(07/26/16 4:42 Anisocyte) AM) [facility] HospitalVzzxxvpATHJGFGCNW1113-72-88 10:42:00 Test Item Value Reference Range Interpretation Comments Basophils # (test code 0.1 See_Comment [Aut omated message] The = Basophils #) system which generated this result tra nsmitted reference range : <=0.2. The reference r leo was not used to int erpret this result as normal/abnormal . [facility] HospitalYxocunkJNNIQOXAUP9517-63-70 10:42:00 Test Item Value Reference Range Interpretation Comments Large Plt (test code Moderate *ABN*(07/26/16 = Large Plt) 4:42 AM) [facility] CenterOxinnlrSDRWIVZIGF1042-99-29 10:42:00 Test Item Value Reference Range Interpretation Comments C4 Complement (test code = C4 42 16-47 Complement) [facility]2017-02-05 10:42:00 Test Item Value Reference Range Interpretation Comments B/C Ratio (test code = B/C Ratio) 17 6-25 [facility]2017-02-05 10:42:00 Test Item Value Reference Range Interpretation Comments ALT (test code = ALT) 1232 See_Comment [Auto mated message] The system which ge nerated this result transmit rohit reference range : <=65. The reference range was not used to interpr et this result as reji l/abnormal. [facility]2017-02-05 10:42:00 Test Item Value Reference Range Interpretation Comments A/G Ratio (test code = A/G Ratio) 0.5 0.7-1.6 [facility]2017-02-05 10:42:00 Test Item Value Reference Range Interpretation Comments Bili Total (test code = Bili Total) 0.3 0.2-1.3 [facility]2017-02-05 10:42:00 Test Item Value Reference Range Interpretation Comments Alk Phos (test code = Alk Phos) 79 39-136 [facility]2017-02-05 10:42:00 Test Item Value Reference Range Interpretation Comments AST (test code = AST) 586 See_Comment [Auto mated message] The system which ge nerated this result transmit rohit reference range : <=37. The reference range was not used to interpr et this result as reji l/abnormal. [facility]2017-02-05 10:42:00 Test Item Value Reference Range Interpretation Comments Total Protein (test code = Total 5.5 6.4-8.4 Protein) [facility]2017-02-05 10:42:00 Test Item Value Reference Range Interpretation Comments Globulin (test code = Globulin) 3.7 2.7-4.2 [facility]2017-02-05 10:42:00 Test Item Value Reference Range Interpretation Comments Albumin Lvl (test code = Albumin Lvl) 1.8 3.5-5.0 [facility]2017-02-05 10:42:00 Test Item Value Reference Range Interpretation Comments Magnesium Lvl (test code = Magnesium 2.1 1.8-2.4 Lvl) [facility] HospitalEcgelyaLEIDNLCSWK8001-19-09 10:42:00 Test Item Value Reference Range Interpretation Comments Acanthocyte (test code = Acanthocyte) [facility] HospitalWqqmsrpFNYKTPCIYC9336-04-77 10:42:00 Test Item Value Reference Range Interpretation Comments Rouleaux (test code = Present *ABN*(07/26/16 Rouleaux) 4:42 AM) [facility] HospitalYgwpthrTFZDNMDWGF5498-83-75 10:42:00 Test Item Value Reference Range Interpretation Comments Anisocyte (test code = 1+ *ABN*(07/26/16 4:42 Anisocyte) AM) [facility] HospitalSallfrtPVWKBPRAUK9566-88-61 10:42:00 Test Item Value Reference Range Interpretation Comments Basophils # (test code 0.1 See_Comment [Aut omated message] The = Basophils #) system which generated this result tra nsmitted reference range : <=0.2. The reference r leo was not used to int erpret this result as normal/abnormal . [facility] HospitalZyvuoomJAIVOGVSUP2977-92-29 10:42:00 Test Item Value Reference Range Interpretation Comments Large Plt (test code Moderate *ABN*(07/26/16 = Large Plt) 4:42 AM) [facility] CenterDijwlihCFCUZHTZUD0126-37-84 10:42:00 Test Item Value Reference Range Interpretation Comments C4 Complement (test code = C4 42 16-47 Complement) [facility]2017-02-05 10:42:00 Test Item Value Reference Range Interpretation Comments B/C Ratio (test code = B/C Ratio) 17 6-25 [facility]2017-02-05 10:42:00 Test Item Value Reference Range Interpretation Comments ALT (test code = ALT) 1232 See_Comment [Auto mated message] The system which ge nerated this result transmit rohit reference range : <=65. The reference range was not used to interpr et this result as reji l/abnormal. [facility]2017-02-05 10:42:00 Test Item Value Reference Range Interpretation Comments A/G Ratio (test code = A/G Ratio) 0.5 0.7-1.6 [facility]2017-02-05 10:42:00 Test Item Value Reference Range Interpretation Comments Bili Total (test code = Bili Total) 0.3 0.2-1.3 [facility]2017-02-05 10:42:00 Test Item Value Reference Range Interpretation Comments Alk Phos (test code = Alk Phos) 79 39-136 [facility]2017-02-05 10:42:00 Test Item Value Reference Range Interpretation Comments AST (test code = AST) 586 See_Comment [Auto mated message] The system which ge nerated this result transmit rohit reference range : <=37. The reference range was not used to interpr et this result as reji l/abnormal. [facility]2017-02-05 10:42:00 Test Item Value Reference Range Interpretation Comments Total Protein (test code = Total 5.5 6.4-8.4 Protein) [facility]2017-02-05 10:42:00 Test Item Value Reference Range Interpretation Comments Globulin (test code = Globulin) 3.7 2.7-4.2 [facility]2017-02-05 10:42:00 Test Item Value Reference Range Interpretation Comments Albumin Lvl (test code = Albumin Lvl) 1.8 3.5-5.0 [facility]2017-02-05 10:42:00 Test Item Value Reference Range Interpretation Comments Magnesium Lvl (test code = Magnesium 2.1 1.8-2.4 Lvl) [facility] HospitalKwodsyuHNAWKXTLRV4978-35-32 10:42:00 Test Item Value Reference Range Interpretation Comments Acanthocyte (test code = Acanthocyte) [facility] HospitalVqmsdkuQPJMKZHRHK9365-53-49 10:42:00 Test Item Value Reference Range Interpretation Comments Rouleaux (test code = Present *ABN*(07/26/16 Rouleaux) 4:42 AM) [facility] HospitalQyyixzgDINJLAZOMI6416-22-14 10:42:00 Test Item Value Reference Range Interpretation Comments Anisocyte (test code = 1+ *ABN*(07/26/16 4:42 Anisocyte) AM) [facility] HospitalHwpzjglHZGVMYBDXJ2973-94-42 10:42:00 Test Item Value Reference Range Interpretation Comments Basophils # (test code 0.1 See_Comment [Aut omated message] The = Basophils #) system which generated this result tra nsmitted reference range : <=0.2. The reference r leo was not used to int erpret this result as normal/abnormal . [facility] CenterCwhttfxBCGJKLMQAN1473-44-71 10:42:00 Test Item Value Reference Range Interpretation Comments Large Plt (test code Moderate *ABN*(07/26/16 = Large Plt) 4:42 AM) [facility] CenterTfhlfkcHDZIHFBCLL5368-23-31 10:42:00 Test Item Value Reference Range Interpretation Comments C4 Complement (test code = C4 42 16-47 Complement) [facility]2017-02-05 10:42:00 Test Item Value Reference Range Interpretation Comments B/C Ratio (test code = B/C Ratio) 17 6-25 [facility]2017-02-05 10:42:00 Test Item Value Reference Range Interpretation Comments ALT (test code = ALT) 1232 See_Comment [Auto mated message] The system which ge nerated this result transmit rohit reference range : <=65. The reference range was not used to interpr et this result as reji l/abnormal. [facility]2017-02-05 10:42:00 Test Item Value Reference Range Interpretation Comments A/G Ratio (test code = A/G Ratio) 0.5 0.7-1.6 [facility]2017-02-05 10:42:00 Test Item Value Reference Range Interpretation Comments Bili Total (test code = Bili Total) 0.3 0.2-1.3 [facility]2017-02-05 10:42:00 Test Item Value Reference Range Interpretation Comments Alk Phos (test code = Alk Phos) [phone] [facility]2017-02-05 10:42:00 Test Item Value Reference Range Interpretation Comments AST (test code = AST) 586 See_Comment [Auto mated message] The system which ge nerated this result transmit rohit reference range : <=37. The reference range was not used to interpr et this result as reji l/abnormal. [facility]2017-02-05 10:42:00 Test Item Value Reference Range Interpretation Comments Total Protein (test code = Total 5.5 6.4-8.4 Protein) [facility]2017-02-05 10:42:00 Test Item Value Reference Range Interpretation Comments Globulin (test code = Globulin) 3.7 2.7-4.2 [facility]2017-02-05 10:42:00 Test Item Value Reference Range Interpretation Comments Albumin Lvl (test code = Albumin Lvl) 1.8 3.5-5.0 [facility] [id number] 10:42:00 Test Item Value Reference Range Interpretation Comments Magnesium Lvl (test code = Magnesium 2.1 1.8-2.4 Lvl) [id number] 10:42:00 Test Item Value Reference Range Interpretation Comments Acanthocyte (test code = Acanthocyte) Slight [id number] 10:42:00 Test Item Value Reference Range Interpretation Comments Rouleaux (test code = Present *ABN*(07/26/16 Rouleaux) 4:42 AM) [id number] 10:42:00 Test Item Value Reference Range Interpretation Comments Anisocyte (test code = 1+ *ABN*(07/26/16 4:42 Anisocyte) AM) [id number] 10:42:00 Test Item Value Reference Range Interpretation Comments Basophils # (test code 0.1 See_Comment [Aut omated message] The = Basophils #) system which generated this result tra nsmitted reference range : <=0.2. The reference r leo was not used to int erpret this result as normal/abnormal . [id number] 10:42:00 Test Item Value Reference Range Interpretation Comments Large Plt (test code Moderate *ABN*(07/26/16 = Large Plt) 4:42 AM) [id number] 10:42:00 Test Item Value Reference Range Interpretation Comments C4 Complement (test code = C4 42 16-47 Complement) [facility]2017-02-04 16:34:00 Test Item Value Reference Range Interpretation Comments UA Sq Epi (test code = UA Sq Epi) None Seen [facility]2017-02-04 16:34:00 Test Item Value Reference Range Interpretation Comments UA Waxy Cast (test code = UA Waxy Cast) 1 [facility] AND [id number] 16:34:00 Test Item Value Reference Range Interpretation Comments UA Hyal Cast (test 4 See_Comment [Automat ed message] The code = UA Hyal Cast) system which generated this result transmit rohit reference range : <=2. The reference range was not used to interpr et this result as reji l/abnormal. [facility] AND [id number] 16:34:00 Test Item Value Reference Range Interpretation Comments UA Bacteria (test code = UA Occasional /HPF Bacteria) [facility] AND [id number] 16:34:00 Test Item Value Reference Range Interpretation Comments UA Mucus (test code = UA Mucus) Few /LPF [facility] AND [id number] 16:34:00 Test Item Value Reference Range Interpretation Comments UA Amorph Destiny (test code = Occasional /HPF UA Amorph Destiny) [facility] AND [id number] 16:34:00 Test Item Value Reference Range Interpretation Comments UA Leuk Est (test Negative (07/25/16 10:34 code = UA Leuk Est) AM) [facility] AND [id number] 16:34:00 Test Item Value Reference Range Interpretation Comments UA Nitrite (test code Negative (07/25/16 10:34 = UA Nitrite) AM) [facility] AND [id number] 16:34:00 Test Item Value Reference Range Interpretation Comments UA RBC (test code = 2 See_Comment [Automa rohit message] The UA RBC) system which ge nerated this result transmit rohit reference range : <=2. The reference range was not used to interpr et this result as reji l/abnormal. [facility] AND [id number] 16:34:00 Test Item Value Reference Range Interpretation Comments UA WBC (test code = 6 See_Comment [Automa rohit message] The UA WBC) system which ge nerated this result transmit rohit reference range : <=5. The reference range was not used to interpr et this result as reji l/abnormal. [facility] AND [id number] 16:34:00 Test Item Value Reference Range Interpretation Comments UA Urobilinogen (test code = UA 2.0 0.1-1.0 Urobilinogen) [facility] AND [id number] 16:34:00 Test Item Value Reference Range Interpretation Comments UA Ketones (test code = UA Negative mg/dL Ketones) [facility] AND [id number] 16:34:00 Test Item Value Reference Range Interpretation Comments UA Glucose (test code = UA Glucose) 70 mg/dL [facility] AND [id number] 16:34:00 Test Item Value Reference Range Interpretation Comments UA Blood (test code = Negative (07/25/16 10:34 UA Blood) AM) [facility] AND [id number] 16:34:00 Test Item Value Reference Range Interpretation Comments UA Bili (test code = Negative *NA*(07/25/16 UA Bili) 10:34 AM) [facility] AND [id number] 16:34:00 Test Item Value Reference Range Interpretation Comments UA Protein (test code = UA >=300 mg/dL Protein) [facility] AND [id number] 16:34:00 Test Item Value Reference Range Interpretation Comments UA Spec Grav (test code = UA Spec Grav) 1.012 [facility] AND [id number] 16:34:00 Test Item Value Reference Range Interpretation Comments UA pH (test code = UA pH) 5.5 5.0-8.0 [facility] AND [id number] 16:34:00 Test Item Value Reference Range Interpretation Comments UA Turbidity (test code Slight *ABN*(07/25/16 = UA Turbidity) 10:34 AM) [facility] AND [id number] 16:34:00 Test Item Value Reference Range Interpretation Comments UA Color (test code = Dark Yellow *NA*(07/25/16 UA Color) 10:34 AM) [facility] AND [id number] 16:34:00 Test Item Value Reference Range Interpretation Comments UA Gran Cast (test code = UA Gran Cast) 9 [facility]2017-02-04 16:34:00 Test Item Value Reference Range Interpretation Comments U Sodium (test code = U Sodium) 30 [facility] [id number] 16:34:00 Test Item Value Reference Range Interpretation Comments U Prot/Creat (test code = U Prot/Creat) 3.1 [facility]2017-02-04 16:34:00 Test Item Value Reference Range Interpretation Comments U Protein (test code = U Protein) 420.9 [facility]2017-02-04 16:34:00 Test Item Value Reference Range Interpretation Comments U Creatinine (test code = U 136.00 Creatinine) [facility] AND [id number] 16:34:00 Test Item Value Reference Range Interpretation Comments UA Sq Epi (test code = UA Sq Epi) None Seen [facility] AND [id number] 16:34:00 Test Item Value Reference Range Interpretation Comments UA Waxy Cast (test code = UA Waxy Cast) 1 [facility] AND [id number] 16:34:00 Test Item Value Reference Range Interpretation Comments UA Hyal Cast (test 4 See_Comment [Automat ed message] The code = UA Hyal Cast) system which generated this result transmit rohit reference range : <=2. The reference range was not used to interpr et this result as reji l/abnormal. [facility] AND [id number] 16:34:00 Test Item Value Reference Range Interpretation Comments UA Bacteria (test code = UA Occasional /HPF Bacteria) [facility] AND [id number] 16:34:00 Test Item Value Reference Range Interpretation Comments UA Mucus (test code = UA Mucus) Few /LPF [facility] AND [id number] 16:34:00 Test Item Value Reference Range Interpretation Comments UA Amorph Destiny (test code = Occasional /HPF UA Amorph Destiny) [facility] AND [id number] 16:34:00 Test Item Value Reference Range Interpretation Comments UA Leuk Est (test Negative (07/25/16 10:34 code = UA Leuk Est) AM) [facility] AND [id number] 16:34:00 Test Item Value Reference Range Interpretation Comments UA Nitrite (test code Negative (07/25/16 10:34 = UA Nitrite) AM) [facility] AND [id number] 16:34:00 Test Item Value Reference Range Interpretation Comments UA RBC (test code = 2 See_Comment [Automa rohit message] The UA RBC) system which ge nerated this result transmit rohit reference range : <=2. The reference range was not used to interpr et this result as reji l/abnormal. [facility] AND [id number] 16:34:00 Test Item Value Reference Range Interpretation Comments UA WBC (test code = 6 See_Comment [Automa rohit message] The UA WBC) system which ge nerated this result transmit rohit reference range : <=5. The reference range was not used to interpr et this result as reji l/abnormal. [facility] AND [id number] 16:34:00 Test Item Value Reference Range Interpretation Comments UA Urobilinogen (test code = UA 2.0 0.1-1.0 Urobilinogen) [facility] AND [id number] 16:34:00 Test Item Value Reference Range Interpretation Comments UA Ketones (test code = UA Negative mg/dL Ketones) [facility] [id number] 16:34:00 Test Item Value Reference Range Interpretation Comments UA Glucose (test code = UA Glucose) 70 mg/dL [facility] AND [id number] 16:34:00 Test Item Value Reference Range Interpretation Comments UA Blood (test code = Negative (07/25/16 10:34 UA Blood) AM) [facility] AND [id number] 16:34:00 Test Item Value Reference Range Interpretation Comments UA Bili (test code = Negative *NA*(07/25/16 UA Bili) 10:34 AM) [facility] AND [id number] 16:34:00 Test Item Value Reference Range Interpretation Comments UA Protein (test code = UA >=300 mg/dL Protein) [facility] AND [id number] 16:34:00 Test Item Value Reference Range Interpretation Comments UA Spec Grav (test code = UA Spec Grav) 1.012 [facility] AND [id number] 16:34:00 Test Item Value Reference Range Interpretation Comments UA pH (test code = UA pH) 5.5 5.0-8.0 [facility] [id number] 16:34:00 Test Item Value Reference Range Interpretation Comments UA Turbidity (test code Slight *ABN*(07/25/16 = UA Turbidity) 10:34 AM) [facility] AND [id number] 16:34:00 Test Item Value Reference Range Interpretation Comments UA Color (test code = Dark Yellow *NA*(07/25/16 UA Color) 10:34 AM) [facility] AND [id number] 16:34:00 Test Item Value Reference Range Interpretation Comments UA Gran Cast (test code = UA Gran Cast) 9 [facility]2017-02-04 16:34:00 Test Item Value Reference Range Interpretation Comments U Sodium (test code = U Sodium) 30 [facility]2017-02-04 16:34:00 Test Item Value Reference Range Interpretation Comments U Prot/Creat (test code = U Prot/Creat) 3.1 [facility]2017-02-04 16:34:00 Test Item Value Reference Range Interpretation Comments U Protein (test code = U Protein) 420.9 [facility]2017-02-04 16:34:00 Test Item Value Reference Range Interpretation Comments U Creatinine (test code = U 136.00 Creatinine) [facility] [id number] 16:34:00 Test Item Value Reference Range Interpretation Comments UA Sq Epi (test code = UA Sq Epi) None Seen [facility] AND [id number] 16:34:00 Test Item Value Reference Range Interpretation Comments UA Waxy Cast (test code = UA Waxy Cast) 1 [facility] AND [id number] 16:34:00 Test Item Value Reference Range Interpretation Comments UA Hyal Cast (test 4 See_Comment [Automat ed message] The code = UA Hyal Cast) system which generated this result transmit rohit reference range : <=2. The reference range was not used to interpr et this result as reji l/abnormal. [facility] AND [id number] 16:34:00 Test Item Value Reference Range Interpretation Comments UA Bacteria (test code = UA Occasional /HPF Bacteria) [facility] [id number] 16:34:00 Test Item Value Reference Range Interpretation Comments UA Mucus (test code = UA Mucus) Few /LPF [facility] [id number] 16:34:00 Test Item Value Reference Range Interpretation Comments UA Amorph Destiny (test code = Occasional /HPF UA Amorph Destiny) [facility] AND [id number] 16:34:00 Test Item Value Reference Range Interpretation Comments UA Leuk Est (test Negative (07/25/16 10:34 code = UA Leuk Est) AM) [facility] [id number] 16:34:00 Test Item Value Reference Range Interpretation Comments UA Nitrite (test code Negative (07/25/16 10:34 = UA Nitrite) AM) [facility] [id number] 16:34:00 Test Item Value Reference Range Interpretation Comments UA RBC (test code = 2 See_Comment [Automa rohit message] The UA RBC) system which ge nerated this result transmit rohit reference range : <=2. The reference range was not used to interpr et this result as reij l/abnormal. [facility] [id number] 16:34:00 Test Item Value Reference Range Interpretation Comments UA WBC (test code = 6 See_Comment [Automa rohit message] The UA WBC) system which ge nerated this result transmit rohit reference range : <=5. The reference range was not used to interpr et this result as reji l/abnormal. [facility] AND [id number] 16:34:00 Test Item Value Reference Range Interpretation Comments UA Urobilinogen (test code = UA 2.0 0.1-1.0 Urobilinogen) [facility] [id number] 16:34:00 Test Item Value Reference Range Interpretation Comments UA Ketones (test code = UA Negative mg/dL Ketones) [facility] [id number] 16:34:00 Test Item Value Reference Range Interpretation Comments UA Glucose (test code = UA Glucose) 70 mg/dL [facility] AND [id number] 16:34:00 Test Item Value Reference Range Interpretation Comments UA Blood (test code = Negative (07/25/16 10:34 UA Blood) AM) [facility] [id number] 16:34:00 Test Item Value Reference Range Interpretation Comments UA Bili (test code = Negative *NA*(07/25/16 UA Bili) 10:34 AM) [facility] [id number] 16:34:00 Test Item Value Reference Range Interpretation Comments UA Protein (test code = UA >=300 mg/dL Protein) [facility] AND [id number] 16:34:00 Test Item Value Reference Range Interpretation Comments UA Spec Grav (test code = UA Spec Grav) 1.012 [facility] AND [id number] 16:34:00 Test Item Value Reference Range Interpretation Comments UA pH (test code = UA pH) 5.5 5.0-8.0 [facility] AND [id number] 16:34:00 Test Item Value Reference Range Interpretation Comments UA Turbidity (test code Slight *ABN*(07/25/16 = UA Turbidity) 10:34 AM) [facility] [id number] 16:34:00 Test Item Value Reference Range Interpretation Comments UA Color (test code = Dark Yellow *NA*(07/25/16 UA Color) 10:34 AM) [facility] [id number] 16:34:00 Test Item Value Reference Range Interpretation Comments UA Gran Cast (test code = UA Gran Cast) 9 [facility] [id number] 16:34:00 Test Item Value Reference Range Interpretation Comments U Sodium (test code = U Sodium) 30 [facility] [id number] 16:34:00 Test Item Value Reference Range Interpretation Comments U Prot/Creat (test code = U Prot/Creat) 3.1 [facility]2017-02-04 16:34:00 Test Item Value Reference Range Interpretation Comments U Protein (test code = U Protein) 420.9 [facility] [id number] 16:34:00 Test Item Value Reference Range Interpretation Comments U Creatinine (test code = U 136.00 Creatinine) [facility] AND [id number] 16:34:00 Test Item Value Reference Range Interpretation Comments UA Sq Epi (test code = UA Sq Epi) None Seen [facility] AND [id number] 16:34:00 Test Item Value Reference Range Interpretation Comments UA Waxy Cast (test code = UA Waxy Cast) 1 [facility] AND [id number] 16:34:00 Test Item Value Reference Range Interpretation Comments UA Hyal Cast (test 4 See_Comment [Automat ed message] The code = UA Hyal Cast) system which generated this result transmit rohit reference range : <=2. The reference range was not used to interpr et this result as reji l/abnormal. [facility] AND [id number] 16:34:00 Test Item Value Reference Range Interpretation Comments UA Bacteria (test code = UA Occasional /HPF Bacteria) [facility] [id number] 16:34:00 Test Item Value Reference Range Interpretation Comments UA Mucus (test code = UA Mucus) Few /LPF [facility] [id number] 16:34:00 Test Item Value Reference Range Interpretation Comments UA Amorph Destiny (test code = Occasional /HPF UA Amorph Destiny) [facility] AND [id number] 16:34:00 Test Item Value Reference Range Interpretation Comments UA Leuk Est (test Negative (07/25/16 10:34 code = UA Leuk Est) AM) [facility] [id number] 16:34:00 Test Item Value Reference Range Interpretation Comments UA Nitrite (test code Negative (07/25/16 10:34 = UA Nitrite) AM) [facility] [id number] 16:34:00 Test Item Value Reference Range Interpretation Comments UA RBC (test code = 2 See_Comment [Automa rohit message] The UA RBC) system which ge nerated this result transmit rohit reference range : <=2. The reference range was not used to interpr et this result as reji l/abnormal. [facility] [id number] 16:34:00 Test Item Value Reference Range Interpretation Comments UA WBC (test code = 6 See_Comment [Automa rohit message] The UA WBC) system which ge nerated this result transmit rohit reference range : <=5. The reference range was not used to interpr et this result as reji l/abnormal. [facility] [id number] 16:34:00 Test Item Value Reference Range Interpretation Comments UA Urobilinogen (test code = UA 2.0 0.1-1.0 Urobilinogen) [facility] [id number] 16:34:00 Test Item Value Reference Range Interpretation Comments UA Ketones (test code = UA Negative mg/dL Ketones) [facility] [id number] 16:34:00 Test Item Value Reference Range Interpretation Comments UA Glucose (test code = UA Glucose) 70 mg/dL [facility] [id number] 16:34:00 Test Item Value Reference Range Interpretation Comments UA Blood (test code = Negative (07/25/16 10:34 UA Blood) AM) [facility] [id number] 16:34:00 Test Item Value Reference Range Interpretation Comments UA Bili (test code = Negative *NA*(07/25/16 UA Bili) 10:34 AM) [facility] [id number] 16:34:00 Test Item Value Reference Range Interpretation Comments UA Protein (test code = UA >=300 mg/dL Protein) [facility] [id number] 16:34:00 Test Item Value Reference Range Interpretation Comments UA Spec Grav (test code = UA Spec Grav) 1.[address] [facility] [id number] 16:34:00 Test Item Value Reference Range Interpretation Comments UA pH (test code = UA pH) 5.5 5.0-8.0 [facility] [id number] 16:34:00 Test Item Value Reference Range Interpretation Comments UA Turbidity (test code Slight *ABN*(07/25/16 = UA Turbidity) 10:34 AM) [facility] [id number] 16:34:00 Test Item Value Reference Range Interpretation Comments UA Color (test code = Dark Yellow *NA*(07/25/16 UA Color) 10:34 AM) [facility] [id number] 16:34:00 Test Item Value Reference Range Interpretation Comments UA Gran Cast (test code = UA Gran Cast) 9 [facility] [id number] 16:34:00 Test Item Value Reference Range Interpretation Comments U Sodium (test code = U Sodium) 30 [facility] [id number] 16:34:00 Test Item Value Reference Range Interpretation Comments U Prot/Creat (test code = U Prot/Creat) 3.1 [facility] [id number] 16:34:00 Test Item Value Reference Range Interpretation Comments U Protein (test code = U Protein) 420.9 [facility] [id number] 16:34:00 Test Item Value Reference Range Interpretation Comments U Creatinine (test code = U 136.00 Creatinine) [facility] [id number] 16:34:00 Test Item Value Reference Range Interpretation Comments UA Sq Epi (test code = UA Sq Epi) None [facility]en [facility] [id number] 16:34:00 Test Item Value Reference Range Interpretation Comments UA Waxy Cast (test code = UA Waxy Cast) 1 [facility] [id number] 16:34:00 Test Item Value Reference Range Interpretation Comments UA Hyal Cast (test 4 See_Comment [Automat ed message] The code = UA Hyal Cast) system which generated this result transmit rohit reference range : <=2. The reference range was not used to interpr et this result as reji l/abnormal. [facility] AND [id number] 16:34:00 Test Item Value Reference Range Interpretation Comments UA Bacteria (test code = UA Occasional /HPF Bacteria) [facility] AND [id number] 16:34:00 Test Item Value Reference Range Interpretation Comments UA Mucus (test code = UA Mucus) Few /LPF [facility] [id number] 16:34:00 Test Item Value Reference Range Interpretation Comments UA Amorph Destiny (test code = Occasional /HPF UA Amorph Destiny) [facility] AND [id number] 16:34:00 Test Item Value Reference Range Interpretation Comments UA Leuk Est (test Negative (07/25/16 10:34 code = UA Leuk Est) AM) [facility] [id number] 16:34:00 Test Item Value Reference Range Interpretation Comments UA Nitrite (test code Negative (07/25/16 10:34 = UA Nitrite) AM) [facility] AND [id number] 16:34:00 Test Item Value Reference Range Interpretation Comments UA RBC (test code = 2 See_Comment [Automa rohit message] The UA RBC) system which ge nerated this result transmit rohit reference range : <=2. The reference range was not used to interpr et this result as reji l/abnormal. [facility] [id number] 16:34:00 Test Item Value Reference Range Interpretation Comments UA WBC (test code = 6 See_Comment [Automa rohit message] The UA WBC) system which ge nerated this result transmit rohit reference range : <=5. The reference range was not used to interpr et this result as reji l/abnormal. [facility] AND [id number] 16:34:00 Test Item Value Reference Range Interpretation Comments UA Urobilinogen (test code = UA 2.0 0.1-1.0 Urobilinogen) [facility] [id number] 16:34:00 Test Item Value Reference Range Interpretation Comments UA Ketones (test code = UA Negative mg/dL Ketones) [facility] AND [id number] 16:34:00 Test Item Value Reference Range Interpretation Comments UA Glucose (test code = UA Glucose) 70 mg/dL [facility] AND [id number] 16:34:00 Test Item Value Reference Range Interpretation Comments UA Blood (test code = Negative (07/25/16 10:34 UA Blood) AM) [facility] AND [id number] 16:34:00 Test Item Value Reference Range Interpretation Comments UA Bili (test code = Negative *NA*(07/25/16 UA Bili) 10:34 AM) [facility] AND [id number] 16:34:00 Test Item Value Reference Range Interpretation Comments UA Protein (test code = UA >=300 mg/dL Protein) [facility] AND [id number] 16:34:00 Test Item Value Reference Range Interpretation Comments UA Spec Grav (test code = UA Spec Grav) 1.012 [facility] AND [id number] 16:34:00 Test Item Value Reference Range Interpretation Comments UA pH (test code = UA pH) 5.5 5.0-8.0 [facility] AND [id number] 16:34:00 Test Item Value Reference Range Interpretation Comments UA Turbidity (test code Slight *ABN*(07/25/16 = UA Turbidity) 10:34 AM) [facility] AND [id number] 16:34:00 Test Item Value Reference Range Interpretation Comments UA Color (test code = Dark Yellow *NA*(07/25/16 UA Color) 10:34 AM) [facility] AND [id number] 16:34:00 Test Item Value Reference Range Interpretation Comments UA Gran Cast (test code = UA Gran Cast) 9 [facility] [id number] 16:34:00 Test Item Value Reference Range Interpretation Comments U Sodium (test code = U Sodium) 30 [facility] [id number] 16:34:00 Test Item Value Reference Range Interpretation Comments U Prot/Creat (test code = U Prot/Creat) 3.1 [facility] [id number] 16:34:00 Test Item Value Reference Range Interpretation Comments U Protein (test code = U Protein) 420.9 [facility] [id number] 16:34:00 Test Item Value Reference Range Interpretation Comments U Creatinine (test code = U 136.00 Creatinine) [facility] [id number] 08:55:00 Test Item Value Reference Range Interpretation Comments Magnesium Lvl (test code = Magnesium 2.0 1.8-2.4 Lvl) [facility]2017-02-04 08:55:00 Test Item Value Reference Range Interpretation Comments Phosphorus (test code = Phosphorus) 5.2 2.5-4.5 [facility]2017-02-04 08:55:00 Test Item Value Reference Range Interpretation Comments Magnesium Lvl (test code = Magnesium 2.0 1.8-2.4 Lvl) [facility]2017-02-04 08:55:00 Test Item Value Reference Range Interpretation Comments Phosphorus (test code = Phosphorus) 5.2 2.5-4.5 [facility]2017-02-04 08:55:00 Test Item Value Reference Range Interpretation Comments Magnesium Lvl (test code = Magnesium 2.0 1.8-2.4 Lvl) [facility]2017-02-04 08:55:00 Test Item Value Reference Range Interpretation Comments Phosphorus (test code = Phosphorus) 5.2 2.5-4.5 [facility] [id number] 08:55:00 Test Item Value Reference Range Interpretation Comments Magnesium Lvl (test code = Magnesium 2.0 1.8-2.4 Lvl) [facility]2017-02-04 08:55:00 Test Item Value Reference Range Interpretation Comments Phosphorus (test code = Phosphorus) 5.2 2.5-4.5 [facility]2017-02-04 08:55:00 Test Item Value Reference Range Interpretation Comments Magnesium Lvl (test code = Magnesium 2.0 1.8-2.4 Lvl) [facility]2017-02-04 08:55:00 Test Item Value Reference Range Interpretation Comments Phosphorus (test code = Phosphorus) 5.2 2.5-4.5 [facility] [id number] 17:29:00 Test Item Value Reference Range Interpretation Comments Troponin-I (test code 0.28 See_Comment [Auto mated message] The = Troponin-I) system which g enerated this result transmit rohit reference range : <=0.40. The reference r leo was not used to interpr et this result as reji l/abnormal. [facility] 17:29:00 Test Item Value Reference Range Interpretation Comments Total CK (test code = Total CK) 2615 [facility] CenterPay [facility] Shopping (deal united)[id number] 17:29:00 Test Item Value Reference Range Interpretation Comments Troponin-T (test code 0.144 See_Comment [Auto mated message] The = Troponin-T) system which g enerated this result transmit rohit reference range : <=0.100. The reference r leo was not used to interpr et this result as reji l/abnormal. [facility] CenterPay [facility] Shopping (deal united)[id number] 17:29:00 Test Item Value Reference Range Interpretation Comments CK MB Index (test 0.2 See_Comment [Automate d message] The code = CK MB Index) system w [facility] generated this result transmit rohit reference range : <=2.5. The reference range was not used to interpr et this result as reji l/abnormal. [facility] 17:29:00 Test Item Value Reference Range Interpretation Comments CK MB (test code = CK MB) 6.3 0.5-3.6 [facility] CenterHallpass MediaSage Wireless [id number] 17:29:00 Test Item Value Reference Range Interpretation Comments Troponin-I (test code 0.28 See_Comment [Auto mated message] The = Troponin-I) system which g enerated this result transmit rohit reference range : <=0.40. The reference r leo was not used to interpr et this result as reji l/abnormal. [facility] 17:29:00 Test Item Value Reference Range Interpretation Comments Total CK (test code = Total CK) [id number] [facility] CenterPay [facility] Shopping (deal united)[id number] 17:29:00 Test Item Value Reference Range Interpretation Comments Troponin-T (test code 0.144 See_Comment [Auto mated message] The = Troponin-T) system which g enerated this result transmit rohit reference range : <=0.100. The reference r leo was not used to interpr et this result as reji l/abnormal. [facility] [employer]2017-02-03 17:29:00 Test Item Value Reference Range Interpretation Comments CK MB Index (test 0.2 See_Comment [Automate d message] The code = CK MB Index) system w [facility] generated this result transmit rohit reference range : <=2.5. The reference range was not used to interpr et this result as reji l/abnormal. [facility] [employer]2017-02-03 17:29:00 Test Item Value Reference Range Interpretation Comments CK MB (test code = CK MB) 6.3 0.5-3.6 [facility] 17:29:00 Test Item Value Reference Range Interpretation Comments Troponin-I (test code 0.28 See_Comment [Auto mated message] The = Troponin-I) system which g enerated this result transmit rohit reference range : <=0.40. The reference r leo was not used to interpr et this result as reji l/abnormal. [facility] [employer]2017-02-03 17:29:00 Test Item Value Reference Range Interpretation Comments Total CK (test code = Total CK) 2616 12-191 [facility] [employer]2017-02-03 17:29:00 Test Item Value Reference Range Interpretation Comments Troponin-T (test code 0.144 See_Comment [Auto mated message] The = Troponin-T) system which g enerated this result transmit rohit reference range : <=0.100. The reference r leo was not used to interpr et this result as reji l/abnormal. [facility] [employer]2017-02-03 17:29:00 Test Item Value Reference Range Interpretation Comments CK MB Index (test 0.2 See_Comment [Automate d message] The code = CK MB Index) system w [employer] generated this result transmit rohit reference range : <=2.5. The reference range was not used to interpr et this result as reji l/abnormal. [facility] [employer]2017-02-03 17:29:00 Test Item Value Reference Range Interpretation Comments CK MB (test code = CK MB) 6.3 0.5-3.6 [facility] [employer]2017-02-03 17:29:00 Test Item Value Reference Range Interpretation Comments Troponin-I (test code 0.28 See_Comment [Auto mated message] The = Troponin-I) system which g enerated this result transmit rohit reference range : <=0.40. The reference r leo was not used to interpr et this result as reji l/abnormal. [facility] CenterAri[facility] Kitchens [id number] 17:29:00 Test Item Value Reference Range Interpretation Comments Total CK (test code = Total CK) [id number] [facility] CenterPay by Shopping (deal united)[id number] 17:29:00 Test Item Value Reference Range Interpretation Comments Troponin-T (test code 0.144 See_Comment [Auto mated message] The = Troponin-T) system which g enerated this result transmit rohit reference range : <=0.100. The reference r leo was not used to interpr et this result as reji l/abnormal. [facility] 17:29:00 Test Item Value Reference Range Interpretation Comments CK MB Index (test 0.2 See_Comment [Automate d message] The code = CK MB Index) system w [facility] generated this result transmit rohit reference range : <=2.5. The reference range was not used to interpr et this result as reji l/abnormal. [facility] 17:29:00 Test Item Value Reference Range Interpretation Comments CK MB (test code = CK MB) 6.3 0.5-3.6 [facility] CenterPay [facility] Shopping (deal united)[id number] 17:29:00 Test Item Value Reference Range Interpretation Comments Troponin-I (test code 0.28 See_Comment [Auto mated message] The = Troponin-I) system which g enerated this result transmit rohit reference range : <=0.40. The reference r leo was not used to interpr et this result as reji l/abnormal. [facility] 17:29:00 Test Item Value Reference Range Interpretation Comments Total CK (test code = Total CK) [id number] [facility] 17:29:00 Test Item Value Reference Range Interpretation Comments Troponin-T (test code 0.144 See_Comment [Auto mated message] The = Troponin-T) system which g enerated this result transmit rohit reference range : <=0.100. The reference r leo was not used to interpr et this result as reji l/abnormal. [facility] [employer]2017-02-03 17:29:00 Test Item Value Reference Range Interpretation Comments CK MB Index (test 0.2 See_Comment [Automate d message] The code = CK MB Index) system w [facility] generated this result transmit rohit reference range : <=2.5. The reference range was not used to interpr et this result as reji l/abnormal. [facility] [employer]2017-02-03 17:29:00 Test Item Value Reference Range Interpretation Comments CK MB (test code = CK MB) 6.3 0.5-3.6 [facility] [employer]2017-02-03 11:20:00 Test Item Value Reference Range Interpretation Comments Troponin-I (test code 0.38 See_Comment [Auto mated message] The = Troponin-I) system which g enerated this result transmit rohit reference range : <=0.40. The reference r leo was not used to interpr et this result as reji l/abnormal. [facility] [employer]2017-02-03 11:20:00 Test Item Value Reference Range Interpretation Comments Troponin-T (test code 0.173 See_Comment [Auto mated message] The = Troponin-T) system which g enerated this result transmit rohit reference range : <=0.100. The reference r leo was not used to interpr et this result as reji l/abnormal. [facility] [employer]2017-02-03 11:20:00 Test Item Value Reference Range Interpretation Comments CK MB Index (test 0.2 See_Comment [Automate d message] The code = CK MB Index) system w [facility] generated this result transmit rohit reference range : <=2.5. The reference range was not used to interpr et this result as reji l/abnormal. [facility] [employer]2017-02-03 11:20:00 Test Item Value Reference Range Interpretation Comments CK MB (test code = CK MB) 5.6 0.5-3.6 [facility] [employer] [id number] 11:20:00 Test Item Value Reference Range Interpretation Comments Phosphorus (test code = Phosphorus) 5.5 2.5-4.5 [facility] [employer]2017-02-03 11:20:00 Test Item Value Reference Range Interpretation Comments Troponin-I (test code 0.38 See_Comment [Auto mated message] The = Troponin-I) system which g enerated this result transmit rohit reference range : <=0.40. The reference r leo was not used to interpr et this result as reji l/abnormal. [facility] [employer]2017-02-03 11:20:00 Test Item Value Reference Range Interpretation Comments Troponin-T (test code 0.173 See_Comment [Auto mated message] The = Troponin-T) system which g enerated this result transmit rohit reference range : <=0.100. The reference r leo was not used to interpr et this result as reji l/abnormal. [facility] 11:20:00 Test Item Value Reference Range Interpretation Comments CK MB Index (test 0.2 See_Comment [Automate d message] The code = CK MB Index) system w [facility] generated this result transmit rohit reference range : <=2.5. The reference range was not used to interpr et this result as reji l/abnormal. [facility] [employer]2017-02-03 11:20:00 Test Item Value Reference Range Interpretation Comments CK MB (test code = CK MB) 5.6 0.5-3.6 [facility] [id number] 11:20:00 Test Item Value Reference Range Interpretation Comments Phosphorus (test code = Phosphorus) 5.5 2.5-4.5 [facility] [employer]2017-02-03 11:20:00 Test Item Value Reference Range Interpretation Comments Troponin-I (test code 0.38 See_Comment [Auto mated message] The = Troponin-I) system which g enerated this result transmit rohit reference range : <=0.40. The reference r leo was not used to interpr et this result as reji l/abnormal. [facility] [employer]2017-02-03 11:20:00 Test Item Value Reference Range Interpretation Comments Troponin-T (test code 0.173 See_Comment [Auto mated message] The = Troponin-T) system which g enerated this result transmit rohit reference range : <=0.100. The reference r leo was not used to interpr et this result as reji l/abnormal. [facility] [employer]2017-02-03 11:20:00 Test Item Value Reference Range Interpretation Comments CK MB Index (test 0.2 See_Comment [Automate d message] The code = CK MB Index) system w [facility] generated this result transmit rohit reference range : <=2.5. The reference range was not used to interpr et this result as reji l/abnormal. [facility] firstSTREET for Boomers & BeyondAC [id number] 11:20:00 Test Item Value Reference Range Interpretation Comments CK MB (test code = CK MB) 5.6 0.5-3.6 [facility] [employer] [id number] 11:20:00 Test Item Value Reference Range Interpretation Comments Phosphorus (test code = Phosphorus) 5.5 2.5-4.5 [facility] [employer]2017-02-03 11:20:00 Test Item Value Reference Range Interpretation Comments Troponin-I (test code 0.38 See_Comment [Auto mated message] The = Troponin-I) system which g enerated this result transmit rohit reference range : <=0.40. The reference r leo was not used to interpr et this result as reji l/abnormal. [facility] [employer]2017-02-03 11:20:00 Test Item Value Reference Range Interpretation Comments Troponin-T (test code 0.173 See_Comment [Auto mated message] The = Troponin-T) system which g enerated this result transmit rohit reference range : <=0.100. The reference r leo was not used to interpr et this result as reji l/abnormal. [facility] [employer]2017-02-03 11:20:00 Test Item Value Reference Range Interpretation Comments CK MB Index (test 0.2 See_Comment [Automate d message] The code = CK MB Index) system w [facility] generated this result transmit rohit reference range : <=2.5. The reference range was not used to interpr et this result as reji l/abnormal. [facility] [employer]2017-02-03 11:20:00 Test Item Value Reference Range Interpretation Comments CK MB (test code = CK MB) 5.6 0.5-3.6 [facility] [employer] [id number] 11:20:00 Test Item Value Reference Range Interpretation Comments Phosphorus (test code = Phosphorus) 5.5 2.5-4.5 [facility] [employer]2017-02-03 11:20:00 Test Item Value Reference Range Interpretation Comments Troponin-I (test code 0.38 See_Comment [Auto mated message] The = Troponin-I) system which g enerated this result transmit rohit reference range : <=0.40. The reference r leo was not used to interpr et this result as reji l/abnormal. [facility] [employer]2017-02-03 11:20:00 Test Item Value Reference Range Interpretation Comments Troponin-T (test code 0.173 See_Comment [Auto mated message] The = Troponin-T) system which g enerated this result transmit rohit reference range : <=0.100. The reference r leo was not used to interpr et this result as reji l/abnormal. [facility] [employer]2017-02-03 11:20:00 Test Item Value Reference Range Interpretation Comments CK MB Index (test 0.2 See_Comment [Automate d message] The code = CK MB Index) system w [facility] generated this result transmit rohit reference range : <=2.5. The reference range was not used to interpr et this result as reji l/abnormal. [facility] [employer]2017-02-03 11:20:00 Test Item Value Reference Range Interpretation Comments CK MB (test code = CK MB) 5.6 0.5-3.6 [facility] [employer] [id number] 11:20:00 Test Item Value Reference Range Interpretation Comments Phosphorus (test code = Phosphorus) 5.5 2.5-4.5 [facility] [employer]2017-02-03 06:18:00 Test Item Value Reference Range Interpretation Comments BNP (test code = BNP) 701 [facility] [employer]2017-02-03 06:18:00 Test Item Value Reference Range Interpretation Comments BNP (test code = BNP) 701 [facility] [employer]2017-02-03 06:18:00 Test Item Value Reference Range Interpretation Comments BNP (test code = BNP) 701 [facility] CenterHallpass MediaBAPTIST HEALTH PADUCAH [id number] 06:18:00 Test Item Value Reference Range Interpretation Comments BNP (test code = BNP) 701 [facility] [id number] 06:18:00 Test Item Value Reference Range Interpretation Comments BNP (test code = BNP) 701 [facility] [id number] 04:59:27 Test Item Value Reference Range Interpretation Comments Troponin-I (test code 0.57 See_Comment [Auto mated message] The = Troponin-I) system which g enerated this result transmit rohit reference range : <=0.40. The reference r leo was not used to interpr et this result as reji l/abnormal. [facility] [id number] 04:59:27 Test Item Value Reference Range Interpretation Comments Troponin-I (test code 0.57 See_Comment [Auto mated message] The = Troponin-I) system which g enerated this result transmit rohit reference range : <=0.40. The reference r leo was not used to interpr et this result as reji l/abnormal. [facility] 04:59:27 Test Item Value Reference Range Interpretation Comments Troponin-I (test code 0.57 See_Comment [Auto mated message] The = Troponin-I) system which g enerated this result transmit rohit reference range : <=0.40. The reference r leo was not used to interpr et this result as reji l/abnormal. [facility] 04:59:27 Test Item Value Reference Range Interpretation Comments Troponin-I (test code 0.57 See_Comment [Auto mated message] The = Troponin-I) system which g enerated this result transmit rohit reference range : <=0.40. The reference r leo was not used to interpr et this result as reji l/abnormal. [facility] 04:59:27 Test Item Value Reference Range Interpretation Comments Troponin-I (test code 0.57 See_Comment [Auto mated message] The = Troponin-I) system which g enerated this result transmit rohit reference range : <=0.40. The reference r leo was not used to interpr et this result as reji l/abnormal. [facility] CenterCARDIAC [id number] 10:22:00 Test Item Value Reference Range Interpretation Comments BNP (test code = BNP) 526 [facility]2016-12-26 10:22:00 Test Item Value Reference Range Interpretation Comments Magnesium Lvl (test code = Magnesium 2.1 1.8-2.4 Lvl) [facility]2016-12-26 10:22:00 Test Item Value Reference Range Interpretation Comments Glucose Lvl (test code = Glucose Lvl) 117 70-99 [facility]2016-12-26 10:22:00 Test Item Value Reference Range Interpretation Comments BUN (test code = BUN) 41 7-22 [facility]2016-12-26 10:22:00 Test Item Value Reference Range Interpretation Comments Creatinine Lvl (test code = Creatinine 2.00 0.50-1.40 Lvl) [facility]2016-12-26 10:22:00 Test Item Value Reference Range Interpretation Comments Calcium Lvl (test code = Calcium Lvl) 9.0 8.5-10.5 [facility]2016-12-26 10:22:00 Test Item Value Reference Range Interpretation Comments Chloride Lvl (test code = Chloride Lvl) 102 95-109 [facility]2016-12-26 10:22:00 Test Item Value Reference Range Interpretation Comments CO2 (test code = CO2) 33 24-32 [facility]2016-12-26 10:22:00 Test Item Value Reference Range Interpretation Comments Sodium Lvl (test code = Sodium Lvl) 144 135-145 [facility]2016-12-26 10:22:00 Test Item Value Reference Range Interpretation Comments Potassium Lvl (test code = Potassium 4.0 3.5-5.1 Lvl) [facility]2016-12-26 10:22:00 Test Item Value Reference Range Interpretation Comments eGFR (test code = eGFR) 32 [facility]2016-12-26 10:22:00 Test Item Value Reference Range Interpretation Comments AGAP (test code = AGAP) 13.0 10.0-20.0 [facility]2016-12-26 10:22:00 Test Item Value Reference Range Interpretation Comments Phosphorus (test code = Phosphorus) 4.6 2.5-4.5 [facility] [id number] 10:22:00 Test Item Value Reference Range Interpretation Comments RBC (test code = RBC) 3.68 4.20-5.40 [facility] [id number] 10:22:00 Test Item Value Reference Range Interpretation Comments Hgb (test code = Hgb) 9.9 12.0-16.0 [facility] [id number] 10:22:00 Test Item Value Reference Range Interpretation Comments MCH (test code = MCH) 26.8 pg 27.0-31.0 [facility] [id number] 10:22:00 Test Item Value Reference Range Interpretation Comments MCHC (test code = MCHC) 34.2 32.0-36.0 [facility] Hos[id number] 10:22:00 Test Item Value Reference Range Interpretation Comments MCV (test code = MCV) 78.3 80.0-98.0 [facility] H[id number] 10:22:00 Test Item Value Reference Range Interpretation Comments Hct (test code = Hct) 28.8 36.0-48.0 [facility] [id number] 10:22:00 Test Item Value Reference Range Interpretation Comments Platelet (test code = Platelet) 191 133-450 [facility] Hos[id number] 10:22:00 Test Item Value Reference Range Interpretation Comments MPV (test code = MPV) 9.5 7.4-10.4 [facility] Hos[id number] 10:22:00 Test Item Value Reference Range Interpretation Comments RDW (test code = RDW) 15.3 11.5-14.5 [facility]JtwetljVLXJKVKYGD4516-43-44 10:22:00 Test Item Value Reference Range Interpretation Comments WBC (test code = WBC) 5.6 3.7-10.4 [facility] HospitalUskconoTFBLWSAXVD5876-60-12 10:22:00 Test Item Value Reference Range Interpretation Comments Eosinophils # (test code 0.5 See_Comment [A utomated message] The = Eosinophils #) system whic h generated this result tra nsmitted reference range : <=0.5. The reference r leo was not used to int erpret this result as normal/abnormal . [facility] HospitalGemrkcmLMURUPRJVR2397-02-05 10:22:00 Test Item Value Reference Range Interpretation Comments Microcyte (test code = 1+ *ABN*(06/15/16 Microcyte) 4:22 AM) [facility] HospitalSbzktrgNWBBZGFESE3500-38-18 10:22:00 Test Item Value Reference Range Interpretation Comments Basophils # (test code 0.1 See_Comment [Aut omated message] The = Basophils #) system which generated this result tra nsmitted reference range : <=0.2. The reference r leo was not used to int erpret this result as normal/abnormal . [facility] HospitalHwsneuyCJBIDQXJEH9934-14-73 10:22:00 Test Item Value Reference Range Interpretation Comments Lymphocytes (test code = Lymphocytes) 33.5 20.0-40.0 [facility] HospitalZgkcfmgNYSGJADCUO0587-07-70 10:22:00 Test Item Value Reference Range Interpretation Comments Segs (test code = Segs) 47.6 45.0-75.0 [facility] HospitalVecmhgyUNYZMMWGNA9218-28-43 10:22:00 Test Item Value Reference Range Interpretation Comments Monocytes (test code = Monocytes) 8.4 2.0-12.0 [facility] HospitalAargidmBDHNRRTUEN7957-13-32 10:22:00 Test Item Value Reference Range Interpretation Comments Eosinophils (test code = 9.4 See_Comment [A utomated message] The Eosinophils) system which ge nerated this result tra nsmitted reference range : <=4.0. The reference r leo was not used to int erpret this result as normal/abnormal . [facility] HospitalXqlbmxnSFDYYEQGPT8080-83-60 10:22:00 Test Item Value Reference Range Interpretation Comments Segs-Bands # (test code = Segs-Bands #) 2.6 1.5-8.1 [facility] HospitalDtkpanvHMBJNTKABB5579-09-22 10:22:00 Test Item Value Reference Range Interpretation Comments Lymphocytes # (test code = Lymphocytes 1.9 1.0-5.5 #) [facility] HospitalGqruzpaGKSVBPIRYH5616-63-81 10:22:00 Test Item Value Reference Range Interpretation Comments Basophils (test code = 1.1 See_Comment [Aut omated message] The Basophils) system which ge nerated this result tra nsmitted reference range : <=1.0. The reference r leo was not used to int erpret this result as normal/abnormal . [facility]GwyvybpFFTSMXYLOP2897-40-47 10:22:00 Test Item Value Reference Range Interpretation Comments Monocytes # (test code 0.5 See_Comment [Aut omated message] The = Monocytes #) system which generated this result tra nsmitted reference range : <=0.8. The reference r leo was not used to int erpret this result as normal/abnormal . [facility]CARD[facility]AC PGXQXSP8969-22-77 10:22:00 Test Item Value Reference Range Interpretation Comments BNP (test code = BNP) 526 [facility]2016-12-26 10:22:00 Test Item Value Reference Range Interpretation Comments Magnesium Lvl (test code = Magnesium 2.1 1.8-2.4 Lvl) [facility]2016-12-26 10:22:00 Test Item Value Reference Range Interpretation Comments Glucose Lvl (test code = Glucose Lvl) 117 70-99 [facility]2016-12-26 10:22:00 Test Item Value Reference Range Interpretation Comments BUN (test code = BUN) 41 7-22 [facility]2016-12-26 10:22:00 Test Item Value Reference Range Interpretation Comments Creatinine Lvl (test code = Creatinine 2.00 0.50-1.40 Lvl) [facility]2016-12-26 10:22:00 Test Item Value Reference Range Interpretation Comments Calcium Lvl (test code = Calcium Lvl) 9.0 8.5-10.5 [facility]2016-12-26 10:22:00 Test Item Value Reference Range Interpretation Comments Chloride Lvl (test code = Chloride Lvl) 102 95-109 [facility]2016-12-26 10:22:00 Test Item Value Reference Range Interpretation Comments CO2 (test code = CO2) 33 24-32 [facility]2016-12-26 10:22:00 Test Item Value Reference Range Interpretation Comments Sodium Lvl (test code = Sodium Lvl) 144 135-145 [facility]2016-12-26 10:22:00 Test Item Value Reference Range Interpretation Comments Potassium Lvl (test code = Potassium 4.0 3.5-5.1 Lvl) [facility]2016-12-26 10:22:00 Test Item Value Reference Range Interpretation Comments eGFR (test code = eGFR) 32 [facility]2016-12-26 10:22:00 Test Item Value Reference Range Interpretation Comments AGAP (test code = AGAP) 13.0 10.0-20.0 [facility]2016-12-26 10:22:00 Test Item Value Reference Range Interpretation Comments Phosphorus (test code = Phosphorus) 4.6 2.5-4.5 [facility] HospitalDazwsemIVOTNAWGZU0622-54-55 10:22:00 Test Item Value Reference Range Interpretation Comments RBC (test code = RBC) 3.68 4.20-5.40 [facility] HospitalVdavlibHEIWGNUIQB1965-69-49 10:22:00 Test Item Value Reference Range Interpretation Comments Hgb (test code = Hgb) 9.9 12.0-16.0 [facility] HospitalZmwpglzKYAMKTKUBN3375-79-81 10:22:00 Test Item Value Reference Range Interpretation Comments MCH (test code = MCH) 26.8 pg 27.0-31.0 [facility] HospitalCugtlqcLRQPJERSUE0812-04-89 10:22:00 Test Item Value Reference Range Interpretation Comments MCHC (test code = MCHC) 34.2 32.0-36.0 [facility] HospitalVkcaabeTPFMQBQULN3364-39-94 10:22:00 Test Item Value Reference Range Interpretation Comments MCV (test code = MCV) 78.3 80.0-98.0 [facility] HospitalSehypdiIGURCANDDD7123-54-26 10:22:00 Test Item Value Reference Range Interpretation Comments Hct (test code = Hct) 28.8 36.0-48.0 [facility] HospitalYywghinDSNRXTXNXB5153-81-14 10:22:00 Test Item Value Reference Range Interpretation Comments Platelet (test code = Platelet) 191 133-450 [facility] HospitalJtmpksuXHZVMQZCHQ7647-89-26 10:22:00 Test Item Value Reference Range Interpretation Comments MPV (test code = MPV) 9.5 7.4-10.4 [facility] HospitalGlldhdaACQYMXLGSB8741-13-11 10:22:00 Test Item Value Reference Range Interpretation Comments RDW (test code = RDW) 15.3 11.5-14.5 [facility] HospitalSxwhauxNMXHHHQKRH4314-57-95 10:22:00 Test Item Value Reference Range Interpretation Comments WBC (test code = WBC) 5.6 3.7-10.4 [facility] HospitalJbmsocoESKXHGNWKR5759-57-51 10:22:00 Test Item Value Reference Range Interpretation Comments Eosinophils # (test code 0.5 See_Comment [A utomated message] The = Eosinophils #) system whic h generated this result tra nsmitted reference range : <=0.5. The reference r leo was not used to int erpret this result as normal/abnormal . [facility] HospitalKgpjspqUDZFXWDKXS3687-65-11 10:22:00 Test Item Value Reference Range Interpretation Comments Microcyte (test code = 1+ *ABN*(06/15/16 Microcyte) 4:22 AM) [facility] HospitalDzleclzAFLBHDXBAW6765-06-57 10:22:00 Test Item Value Reference Range Interpretation Comments Basophils # (test code 0.1 See_Comment [Aut omated message] The = Basophils #) system which generated this result tra nsmitted reference range : <=0.2. The reference r leo was not used to int erpret this result as normal/abnormal . [facility] HospitalKvgsbjqERSEBUIHCM1897-77-22 10:22:00 Test Item Value Reference Range Interpretation Comments Lymphocytes (test code = Lymphocytes) 33.5 20.0-40.0 [facility] HospitalCnkvgqxWRDQQASBCB7598-00-16 10:22:00 Test Item Value Reference Range Interpretation Comments Segs (test code = Segs) 47.6 45.0-75.0 [facility] HospitalFnihqptXXVONMYCBC9976-12-03 10:22:00 Test Item Value Reference Range Interpretation Comments Monocytes (test code = Monocytes) 8.4 2.0-12.0 [facility] HospitalIhgrmrtLVNHFBZUVV5754-74-77 10:22:00 Test Item Value Reference Range Interpretation Comments Eosinophils (test code = 9.4 See_Comment [A utomated message] The Eosinophils) system which ge nerated this result tra nsmitted reference range : <=4.0. The reference r leo was not used to int erpret this result as normal/abnormal . [facility] HospitalXthnqtaSXNHGLNABR7871-98-34 10:22:00 Test Item Value Reference Range Interpretation Comments Segs-Bands # (test code = Segs-Bands #) 2.6 1.5-8.1 [facility] HospitalHalbqyxSALAMITHJI9307-10-53 10:22:00 Test Item Value Reference Range Interpretation Comments Lymphocytes # (test code = Lymphocytes 1.9 1.0-5.5 #) [place] 563206-12-26 10:22:00 Test Item Value Reference Range Interpretation Comments Basophils (test code = 1.1 See_Comment [Aut omated message] The Basophils) system which ge nerated this result tra nsmitted reference range : <=1.0. The reference r leo was not used to int erpret this result as normal/abnormal . [facility] HospitalKgqcwhxJXUQGHHTMJ8527-73-66 10:22:00 Test Item Value Reference Range Interpretation Comments Monocytes # (test code 0.5 See_Comment [Aut omated message] The = Monocytes #) system which generated this result tra nsmitted reference range : <=0.8. The reference r leo was not used to int erpret this result as normal/abnormal . [facility] CenterCARDIAC TBBFFWF7722-33-62 10:22:00 Test Item Value Reference Range Interpretation Comments BNP (test code = BNP) [address] [facility] LXAKN3020-54-80 10:22:00 Test Item Value Reference Range Interpretation Comments Magnesium Lvl (test code = Magnesium 2.1 1.8-2.4 Lvl) [facility]2016-12-26 10:22:00 Test Item Value Reference Range Interpretation Comments Glucose Lvl (test code = Glucose Lvl) 117 70-99 [facility]2016-12-26 10:22:00 Test Item Value Reference Range Interpretation Comments BUN (test code = BUN) 41 7-22 [facility]2016-12-26 10:22:00 Test Item Value Reference Range Interpretation Comments Creatinine Lvl (test code = Creatinine 2.00 0.50-1.40 Lvl) [facility]2016-12-26 10:22:00 Test Item Value Reference Range Interpretation Comments Calcium Lvl (test code = Calcium Lvl) 9.0 8.5-10.5 [facility]2016-12-26 10:22:00 Test Item Value Reference Range Interpretation Comments Chloride Lvl (test code = Chloride Lvl) 102 95-109 [facility]2016-12-26 10:22:00 Test Item Value Reference Range Interpretation Comments CO2 (test code = CO2) 33 24-32 [facility] CenterCirro WJWWY3017-93-45 10:22:00 Test Item Value Reference Range Interpretation Comments Sodium Lvl (test code = Sodium Lvl) 144 135-145 [facility]2016-12-26 10:22:00 Test Item Value Reference Range Interpretation Comments Potassium Lvl (test code = Potassium 4.0 3.5-5.1 Lvl) [facility]2016-12-26 10:22:00 Test Item Value Reference Range Interpretation Comments eGFR (test code = eGFR) 32 [facility]2016-12-26 10:22:00 Test Item Value Reference Range Interpretation Comments AGAP (test code = AGAP) 13.0 10.0-20.0 [facility]2016-12-26 10:22:00 Test Item Value Reference Range Interpretation Comments Phosphorus (test code = Phosphorus) 4.6 2.5-4.5 [facility] HospitalLmldldkEIDYFYZZEA7975-26-54 10:22:00 Test Item Value Reference Range Interpretation Comments RBC (test code = RBC) 3.68 4.20-5.40 [facility] HospitalTtpnkpxZMTJWJCBGF0592-52-67 10:22:00 Test Item Value Reference Range Interpretation Comments Hgb (test code = Hgb) 9.9 12.0-16.0 [facility] HospitalTuakohbFTSMZCKSFK9545-58-82 10:22:00 Test Item Value Reference Range Interpretation Comments MCH (test code = MCH) 26.8 pg 27.0-31.0 [facility] HospitalRjgddnqMUNXVMMZKS2851-87-60 10:22:00 Test Item Value Reference Range Interpretation Comments MCHC (test code = MCHC) 34.2 32.0-36.0 [facility] HospitalFdhcschWCXLNMOBSX2207-69-60 10:22:00 Test Item Value Reference Range Interpretation Comments MCV (test code = MCV) 78.3 80.0-98.0 [facility] HospitalQxfqnvtXKXEPYGOHJ4729-54-00 10:22:00 Test Item Value Reference Range Interpretation Comments Hct (test code = Hct) 28.8 36.0-48.0 [facility] HospitalIxvcvkyFZZQNNYVHX1682-05-99 10:22:00 Test Item Value Reference Range Interpretation Comments Platelet (test code = Platelet) 191 133-450 [facility] HospitalRgkxzviTPILBVHWZN3001-71-38 10:22:00 Test Item Value Reference Range Interpretation Comments MPV (test code = MPV) 9.5 7.4-10.4 [facility] HospitalWcythpaSGMZDTYOVF2127-19-00 10:22:00 Test Item Value Reference Range Interpretation Comments RDW (test code = RDW) 15.3 11.5-14.5 [facility] HospitalWbtteztNFBCIBYZDN2013-13-83 10:22:00 Test Item Value Reference Range Interpretation Comments WBC (test code = WBC) 5.6 3.7-10.4 [facility] HospitalWsrtrsjDKGQQHBNJK8416-50-55 10:22:00 Test Item Value Reference Range Interpretation Comments Eosinophils # (test code 0.5 See_Comment [A utomated message] The = Eosinophils #) system whic h generated this result tra nsmitted reference range : <=0.5. The reference r leo was not used to int erpret this result as normal/abnormal . [facility] HospitalNccqcipZNHHKYKARX7994-31-65 10:22:00 Test Item Value Reference Range Interpretation Comments Microcyte (test code = 1+ *ABN*(06/15/16 Microcyte) 4:22 AM) [facility] HospitalUbabceoAXGHBBMTYI1901-11-89 10:22:00 Test Item Value Reference Range Interpretation Comments Basophils # (test code 0.1 See_Comment [Aut omated message] The = Basophils #) system which generated this result tra nsmitted reference range : <=0.2. The reference r leo was not used to int erpret this result as normal/abnormal . [facility] HospitalHgtyitpRXVTAWHZBX3197-38-64 10:22:00 Test Item Value Reference Range Interpretation Comments Lymphocytes (test code = Lymphocytes) 33.5 20.0-40.0 [facility] HospitalWxgrgjzDYMULRQYEO6644-06-69 10:22:00 Test Item Value Reference Range Interpretation Comments Segs (test code = Segs) 47.6 45.0-75.0 [facility] HospitalHnedznxBPVAJHYDAF1378-33-60 10:22:00 Test Item Value Reference Range Interpretation Comments Monocytes (test code = Monocytes) 8.4 2.0-12.0 [facility] HospitalWugfdvxCOEGONKBQH7876-24-00 10:22:00 Test Item Value Reference Range Interpretation Comments Eosinophils (test code = 9.4 See_Comment [A utomated message] The Eosinophils) system which ge nerated this result tra nsmitted reference range : <=4.0. The reference r leo was not used to int erpret this result as normal/abnormal . [facility] HospitalScqmeasXGMUAABSHX7066-19-71 10:22:00 Test Item Value Reference Range Interpretation Comments Segs-Bands # (test code = Segs-Bands #) 2.6 1.5-8.1 [facility]OmqsiluQDGMJJQBQP3991-76-04 10:22:00 Test Item Value Reference Range Interpretation Comments Lymphocytes # (test code = Lymphocytes 1.9 1.0-5.5 #) [facility]OirzfofUFDMONYAQO6454-29-19 10:22:00 Test Item Value Reference Range Interpretation Comments Basophils (test code = 1.1 See_Comment [Aut omated message] The Basophils) system which ge nerated this result tra nsmitted reference range : <=1.0. The reference r leo was not used to int erpret this result as normal/abnormal . [facility] HospitalQaplxkfQZMZRMJBII8970-59-40 10:22:00 Test Item Value Reference Range Interpretation Comments Monocytes # (test code 0.5 See_Comment [Aut omated message] The = Monocytes #) system which generated this result tra nsmitted reference range : <=0.8. The reference r leo was not used to int erpret this result as normal/abnormal . [facility] CenterCARD[facility]AC KZNNFEX4855-87-16 10:22:00 Test Item Value Reference Range Interpretation Comments BNP (test code = BNP) [address] [facility] OKTPR6314-68-57 10:22:00 Test Item Value Reference Range Interpretation Comments Magnesium Lvl (test code = Magnesium 2.1 1.8-2.4 Lvl) [facility]2016-12-26 10:22:00 Test Item Value Reference Range Interpretation Comments Glucose Lvl (test code = Glucose Lvl) 117 70-99 [facility]2016-12-26 10:22:00 Test Item Value Reference Range Interpretation Comments BUN (test code = BUN) 41 7-22 [facility] [id number] 10:22:00 Test Item Value Reference Range Interpretation Comments Creatinine Lvl (test code = Creatinine 2.00 0.50-1.40 Lvl) [facility] JBDJN1131-24-39 10:22:00 Test Item Value Reference Range Interpretation Comments Calcium Lvl (test code = Calcium Lvl) 9.0 8.5-10.5 [facility] [id number] 10:22:00 Test Item Value Reference Range Interpretation Comments Chloride Lvl (test code = Chloride Lvl) 102 95-109 [facility]2016-12-26 10:22:00 Test Item Value Reference Range Interpretation Comments CO2 (test code = CO2) 33 24-32 [facility]2016-12-26 10:22:00 Test Item Value Reference Range Interpretation Comments Sodium Lvl (test code = Sodium Lvl) 144 135-145 [facility]2016-12-26 10:22:00 Test Item Value Reference Range Interpretation Comments Potassium Lvl (test code = Potassium 4.0 3.5-5.1 Lvl) [facility]2016-12-26 10:22:00 Test Item Value Reference Range Interpretation Comments eGFR (test code = eGFR) 32 [facility]2016-12-26 10:22:00 Test Item Value Reference Range Interpretation Comments AGAP (test code = AGAP) 13.0 10.0-20.0 [facility]2016-12-26 10:22:00 Test Item Value Reference Range Interpretation Comments Phosphorus (test code = Phosphorus) 4.6 2.5-4.5 [facility] HospitalUgpokkvHAFINHOVXY8672-81-76 10:22:00 Test Item Value Reference Range Interpretation Comments RBC (test code = RBC) 3.68 4.20-5.40 [facility] HospitalTrlswbuQHNEYBCNUK6537-12-36 10:22:00 Test Item Value Reference Range Interpretation Comments Hgb (test code = Hgb) 9.9 12.0-16.0 [facility] HospitalCxsicxdPVDHSOCLPL5171-60-16 10:22:00 Test Item Value Reference Range Interpretation Comments MCH (test code = MCH) 26.8 pg 27.0-31.0 [facility] HospitalWpaloxvXGKIHXUKOF6291-26-84 10:22:00 Test Item Value Reference Range Interpretation Comments MCHC (test code = MCHC) 34.2 32.0-36.0 [facility] HospitalPhwvfoxKKOQTLAHRA0974-07-02 10:22:00 Test Item Value Reference Range Interpretation Comments MCV (test code = MCV) 78.3 80.0-98.0 [place] 563206-12-26 10:22:00 Test Item Value Reference Range Interpretation Comments Hct (test code = Hct) 28.8 36.0-48.0 [facility] HospitalLruasgpVUJVTDGCUJ4167-71-76 10:22:00 Test Item Value Reference Range Interpretation Comments Platelet (test code = Platelet) 191 133-450 [facility] HospitalHemvzibBJCWCRVEBI2044-68-48 10:22:00 Test Item Value Reference Range Interpretation Comments MPV (test code = MPV) 9.5 7.4-10.4 [facility] HospitalHpiplzoKDEEJZURGE2548-51-93 10:22:00 Test Item Value Reference Range Interpretation Comments RDW (test code = RDW) 15.3 11.5-14.5 [facility] HospitalNytumybBZATIRGBRU1696-73-22 10:22:00 Test Item Value Reference Range Interpretation Comments WBC (test code = WBC) 5.6 3.7-10.4 [facility] HospitalQlvylyvVLFYKLGLTV3781-94-74 10:22:00 Test Item Value Reference Range Interpretation Comments Eosinophils # (test code 0.5 See_Comment [A utomated message] The = Eosinophils #) system whic h generated this result tra nsmitted reference range : <=0.5. The reference r leo was not used to int erpret this result as normal/abnormal . [facility] HospitalWcbwikhTIIGADVFUU8042-04-29 10:22:00 Test Item Value Reference Range Interpretation Comments Microcyte (test code = 1+ *ABN*(06/15/16 Microcyte) 4:22 AM) [facility] HospitalBaieevsCTBWGMPQUI6233-48-85 10:22:00 Test Item Value Reference Range Interpretation Comments Basophils # (test code 0.1 See_Comment [Aut omated message] The = Basophils #) system which generated this result tra nsmitted reference range : <=0.2. The reference r leo was not used to int erpret this result as normal/abnormal . [facility] HospitalAmeeirvKIJEWDOEEG3255-48-31 10:22:00 Test Item Value Reference Range Interpretation Comments Lymphocytes (test code = Lymphocytes) 33.5 20.0-40.0 [facility] HospitalLpjyhfkJENWVLRYCF1549-23-47 10:22:00 Test Item Value Reference Range Interpretation Comments Segs (test code = Segs) 47.6 45.0-75.0 [facility] HospitalLaziiowGPFSFNLHVC7275-25-71 10:22:00 Test Item Value Reference Range Interpretation Comments Monocytes (test code = Monocytes) 8.4 2.0-12.0 [facility] HospitalTpwlhxiCYZHCFEMFX3211-48-17 10:22:00 Test Item Value Reference Range Interpretation Comments Eosinophils (test code = 9.4 See_Comment [A utomated message] The Eosinophils) system which ge nerated this result tra nsmitted reference range : <=4.0. The reference r leo was not used to int erpret this result as normal/abnormal . [facility] HospitalSnvdfmqOKYYEVEXLU6242-03-27 10:22:00 Test Item Value Reference Range Interpretation Comments Segs-Bands # (test code = Segs-Bands #) 2.6 1.5-8.1 [facility] HospitalEdlwpyrDQMJLPLTBV1317-85-86 10:22:00 Test Item Value Reference Range Interpretation Comments Lymphocytes # (test code = Lymphocytes 1.9 1.0-5.5 #) [facility] HospitalZnihgluTUUWYEAPJC5110-48-87 10:22:00 Test Item Value Reference Range Interpretation Comments Basophils (test code = 1.1 See_Comment [Aut omated message] The Basophils) system which ge nerated this result tra nsmitted reference range : <=1.0. The reference r leo was not used to int erpret this result as normal/abnormal . [facility] HospitalCkkuutgJNJTPVQHCC4524-50-65 10:22:00 Test Item Value Reference Range Interpretation Comments Monocytes # (test code 0.5 See_Comment [Aut omated message] The = Monocytes #) system which generated this result tra nsmitted reference range : <=0.8. The reference r leo was not used to int erpret this result as normal/abnormal . [facility]CARD[facility] BFVNRUO9777-61-20 10:22:00 Test Item Value Reference Range Interpretation Comments BNP (test code = BNP) 526 [facility]2016-12-26 10:22:00 Test Item Value Reference Range Interpretation Comments Magnesium Lvl (test code = Magnesium 2.1 1.8-2.4 Lvl) [facility]2016-12-26 10:22:00 Test Item Value Reference Range Interpretation Comments Glucose Lvl (test code = Glucose Lvl) 117 70-99 [facility]2016-12-26 10:22:00 Test Item Value Reference Range Interpretation Comments BUN (test code = BUN) 41 7-22 [facility]2016-12-26 10:22:00 Test Item Value Reference Range Interpretation Comments Creatinine Lvl (test code = Creatinine 2.00 0.50-1.40 Lvl) [facility]2016-12-26 10:22:00 Test Item Value Reference Range Interpretation Comments Calcium Lvl (test code = Calcium Lvl) 9.0 8.5-10.5 [facility]2016-12-26 10:22:00 Test Item Value Reference Range Interpretation Comments Chloride Lvl (test code = Chloride Lvl) 102 95-109 [facility]2016-12-26 10:22:00 Test Item Value Reference Range Interpretation Comments CO2 (test code = CO2) 33 24-32 [facility]2016-12-26 10:22:00 Test Item Value Reference Range Interpretation Comments Sodium Lvl (test code = Sodium Lvl) 144 135-145 [facility]2016-12-26 10:22:00 Test Item Value Reference Range Interpretation Comments Potassium Lvl (test code = Potassium 4.0 3.5-5.1 Lvl) [facility]2016-12-26 10:22:00 Test Item Value Reference Range Interpretation Comments eGFR (test code = eGFR) 32 [facility]2016-12-26 10:22:00 Test Item Value Reference Range Interpretation Comments AGAP (test code = AGAP) 13.0 10.0-20.0 [facility]2016-12-26 10:22:00 Test Item Value Reference Range Interpretation Comments Phosphorus (test code = Phosphorus) 4.6 2.5-4.5 [facility] HospitalCzjjeftRNQNVXUSVN8402-06-36 10:22:00 Test Item Value Reference Range Interpretation Comments RBC (test code = RBC) 3.68 4.20-5.40 [facility] HospitalRcnxwwrHFSBXWUDBO6508-91-27 10:22:00 Test Item Value Reference Range Interpretation Comments Hgb (test code = Hgb) 9.9 12.0-16.0 [facility] HospitalIynupnyBUNCJSKTJH5878-73-43 10:22:00 Test Item Value Reference Range Interpretation Comments MCH (test code = MCH) 26.8 pg 27.0-31.0 [facility] HospitalLlljoqwOLGOVXPOTD1626-21-99 10:22:00 Test Item Value Reference Range Interpretation Comments MCHC (test code = MCHC) 34.2 32.0-36.0 [facility] HospitalWfqwhpsKQYKWLKPOS5213-12-09 10:22:00 Test Item Value Reference Range Interpretation Comments MCV (test code = MCV) 78.3 80.0-98.0 [facility] HospitalGzyludrUPCVXDUAIX4779-81-37 10:22:00 Test Item Value Reference Range Interpretation Comments Hct (test code = Hct) 28.8 36.0-48.0 [facility] HospitalQagfwlvWFGPBZWZBN1249-40-82 10:22:00 Test Item Value Reference Range Interpretation Comments Platelet (test code = Platelet) 191 133-450 [facility] HospitalVkwclliIGDMLBENSH7576-80-87 10:22:00 Test Item Value Reference Range Interpretation Comments MPV (test code = MPV) 9.5 7.4-10.4 [facility] HospitalPpbqhbxCDZZWZCXXQ1249-31-54 10:22:00 Test Item Value Reference Range Interpretation Comments RDW (test code = RDW) 15.3 11.5-14.5 [facility] HospitalMnyhfvvVHOTWRCZQD9662-91-95 10:22:00 Test Item Value Reference Range Interpretation Comments WBC (test code = WBC) 5.6 3.7-10.4 [facility] HospitalScrayskCGMHPYECSJ6449-89-25 10:22:00 Test Item Value Reference Range Interpretation Comments Eosinophils # (test code 0.5 See_Comment [A utomated message] The = Eosinophils #) system whic h generated this result tra nsmitted reference range : <=0.5. The reference r leo was not used to int erpret this result as normal/abnormal . [facility] HospitalTnqnpajZWCSJOUCIE8175-78-41 10:22:00 Test Item Value Reference Range Interpretation Comments Microcyte (test code = 1+ *ABN*(06/15/16 Microcyte) 4:22 AM) [facility] HospitalToasznaVFAZTEQSCW8357-39-78 10:22:00 Test Item Value Reference Range Interpretation Comments Basophils # (test code 0.1 See_Comment [Aut omated message] The = Basophils #) system which generated this result tra nsmitted reference range : <=0.2. The reference r leo was not used to int erpret this result as normal/abnormal . [facility] HospitalRwvblljGORZJTGJQA6371-14-20 10:22:00 Test Item Value Reference Range Interpretation Comments Lymphocytes (test code = Lymphocytes) 33.5 20.0-40.0 [facility] HospitalLjeqwfnDXMKIZQCET0666-37-43 10:22:00 Test Item Value Reference Range Interpretation Comments Segs (test code = Segs) 47.6 45.0-75.0 [facility] HospitalOcmxqviJCVKSSZTCA7857-84-51 10:22:00 Test Item Value Reference Range Interpretation Comments Monocytes (test code = Monocytes) 8.4 2.0-12.0 [facility] HospitalPeutfaeQJGNJSWYBQ6562-75-00 10:22:00 Test Item Value Reference Range Interpretation Comments Eosinophils (test code = 9.4 See_Comment [A utomated message] The Eosinophils) system which ge nerated this result tra nsmitted reference range : <=4.0. The reference r leo was not used to int erpret this result as normal/abnormal . [facility] HospitalWptlvoiJGHBAWCAZF2730-39-04 10:22:00 Test Item Value Reference Range Interpretation Comments Segs-Bands # (test code = Segs-Bands #) 2.6 1.5-8.1 [place] 563206-12-26 10:22:00 Test Item Value Reference Range Interpretation Comments Lymphocytes # (test code = Lymphocytes 1.9 1.0-5.5 #) [facility] HospitalJxwndsfPJQTBZVNBA8642-33-88 10:22:00 Test Item Value Reference Range Interpretation Comments Basophils (test code = 1.1 See_Comment [Aut omated message] The Basophils) system which ge nerated this result tra nsmitted reference range : <=1.0. The reference r leo was not used to int erpret this result as normal/abnormal . [facility] HospitalHriyayhIXAYANVQZG6280-06-95 10:22:00 Test Item Value Reference Range Interpretation Comments Monocytes # (test code 0.5 See_Comment [Aut omated message] The = Monocytes #) system which generated this result tra nsmitted reference range : <=0.8. The reference r leo was not used to int erpret this result as normal/abnormal . [facility]Cir[facility] DQIHQ9531-25-78 11:03:00 Test Item Value Reference Range Interpretation Comments Phosphorus (test code = Phosphorus) 4.8 2.5-4.5 [facility]2016-12-25 11:03:00 Test Item Value Reference Range Interpretation Comments Magnesium Lvl (test code = Magnesium 2.0 1.8-2.4 Lvl) [facility]2016-12-25 11:03:00 Test Item Value Reference Range Interpretation Comments eGFR (test code = eGFR) 32 [facility]2016-12-25 11:03:00 Test Item Value Reference Range Interpretation Comments Chloride Lvl (test code = Chloride Lvl) 101 95-109 [facility]2016-12-25 11:03:00 Test Item Value Reference Range Interpretation Comments Potassium Lvl (test code = Potassium 4.4 3.5-5.1 Lvl) [facility]2016-12-25 11:03:00 Test Item Value Reference Range Interpretation Comments BUN (test code = BUN) 37 7-22 [facility]2016-12-25 11:03:00 Test Item Value Reference Range Interpretation Comments Glucose Lvl (test code = Glucose Lvl) 119 70-99 [facility]2016-12-25 11:03:00 Test Item Value Reference Range Interpretation Comments Creatinine Lvl (test code = Creatinine 2.00 0.50-1.40 Lvl) [facility]2016-12-25 11:03:00 Test Item Value Reference Range Interpretation Comments Sodium Lvl (test code = Sodium Lvl) 142 135-145 [facility]2016-12-25 11:03:00 Test Item Value Reference Range Interpretation Comments Calcium Lvl (test code = Calcium Lvl) 8.7 8.5-10.5 [facility]2016-12-25 11:03:00 Test Item Value Reference Range Interpretation Comments CO2 (test code = CO2) 32 24-32 [facility]2016-12-25 11:03:00 Test Item Value Reference Range Interpretation Comments AGAP (test code = AGAP) 13.4 10.0-20.0 [facility] HospitalRjjwwyvERGEJGSJFO1640-72-63 11:03:00 Test Item Value Reference Range Interpretation Comments Eosinophils (test code = 10.3 See_Comment [A utomated message] The Eosinophils) system which ge nerated this result tra nsmitted reference range : <=4.0. The reference r leo was not used to int erpret this result as normal/abnormal . [facility] HospitalZuevzatREGNSZMKEN6920-80-96 11:03:00 Test Item Value Reference Range Interpretation Comments Basophils # (test code 0.1 See_Comment [Aut omated message] The = Basophils #) system which generated this result tra nsmitted reference range : <=0.2. The reference r leo was not used to int erpret this result as normal/abnormal . [facility] HospitalFyppgwqENKWQDNBDD3588-79-81 11:03:00 Test Item Value Reference Range Interpretation Comments Eosinophils # (test code 0.5 See_Comment [A utomated message] The = Eosinophils #) system whic h generated this result tra nsmitted reference range : <=0.5. The reference r leo was not used to int erpret this result as normal/abnormal . [facility] HospitalGibmpztISQIURPRZP0269-57-47 11:03:00 Test Item Value Reference Range Interpretation Comments Monocytes # (test code 0.5 See_Comment [Aut omated message] The = Monocytes #) system which generated this result tra nsmitted reference range : <=0.8. The reference r leo was not used to int erpret this result as normal/abnormal . [facility] HospitalQzlwjacNIVDIAXEGF6131-35-19 11:03:00 Test Item Value Reference Range Interpretation Comments Segs-Bands # (test code = Segs-Bands #) 2.1 1.5-8.1 [facility] HospitalTlcxuasNDUZCUWWEG2023-31-26 11:03:00 Test Item Value Reference Range Interpretation Comments Basophils (test code = 1.2 See_Comment [Aut omated message] The Basophils) system which ge nerated this result tra nsmitted reference range : <=1.0. The reference r leo was not used to int erpret this result as normal/abnormal . [facility] HospitalHpqfrkeDLFBVJFJWS1812-22-87 11:03:00 Test Item Value Reference Range Interpretation Comments Lymphocytes # (test code = Lymphocytes 1.9 1.0-5.5 #) [facility] HospitalVikjaepAULCCEADMA2306-72-04 11:03:00 Test Item Value Reference Range Interpretation Comments Segs (test code = Segs) 42.5 45.0-75.0 [facility] HospitalFtgalwxNSTIMPZGLJ5927-54-43 11:03:00 Test Item Value Reference Range Interpretation Comments Lymphocytes (test code = Lymphocytes) 37.0 20.0-40.0 [facility] HospitalRsitifmFEYXTBWEBA9191-74-38 11:03:00 Test Item Value Reference Range Interpretation Comments Monocytes (test code = Monocytes) 9.0 2.0-12.0 [facility] HospitalVsbftedFYOJNSXNNW2882-37-68 11:03:00 Test Item Value Reference Range Interpretation Comments MPV (test code = MPV) 9.8 7.4-10.4 [facility] HospitalBhjgwnnFZGBAIWBDT6504-30-73 11:03:00 Test Item Value Reference Range Interpretation Comments WBC (test code = WBC) 5.0 3.7-10.4 [facility] HospitalRstssjcHTFEUFCWWF8450-10-51 11:03:00 Test Item Value Reference Range Interpretation Comments RBC (test code = RBC) 3.57 4.20-5.40 [facility] HospitalPkskrluIRXCLJKQWD0015-99-96 11:03:00 Test Item Value Reference Range Interpretation Comments Hgb (test code = Hgb) 9.4 12.0-16.0 [facility] HospitalVnasslgECSRDFHGJG2512-68-74 11:03:00 Test Item Value Reference Range Interpretation Comments Hct (test code = Hct) 28.5 36.0-48.0 [facility] HospitalZuoutukOACGQLGSST6441-11-90 11:03:00 Test Item Value Reference Range Interpretation Comments Platelet (test code = Platelet) 183 133-450 [facility] HospitalVvskxtdYXXBIGAJBH4629-89-34 11:03:00 Test Item Value Reference Range Interpretation Comments MCV (test code = MCV) 79.9 80.0-98.0 [facility] HospitalTtxpzbhSIOAAADYHK5009-54-42 11:03:00 Test Item Value Reference Range Interpretation Comments MCH (test code = MCH) 26.3 pg 27.0-31.0 [facility] HospitalYkvwefnGWQZWFDUQQ6033-62-44 11:03:00 Test Item Value Reference Range Interpretation Comments MCHC (test code = MCHC) 33.0 32.0-36.0 [facility] HospitalUymkkwzSIWHGXOAAY5650-49-26 11:03:00 Test Item Value Reference Range Interpretation Comments RDW (test code = RDW) 15.9 11.5-14.5 [facility]2016-12-25 11:03:00 Test Item Value Reference Range Interpretation Comments Phosphorus (test code = Phosphorus) 4.8 2.5-4.5 [facility]2016-12-25 11:03:00 Test Item Value Reference Range Interpretation Comments Magnesium Lvl (test code = Magnesium 2.0 1.8-2.4 Lvl) [facility]2016-12-25 11:03:00 Test Item Value Reference Range Interpretation Comments eGFR (test code = eGFR) 32 [facility]2016-12-25 11:03:00 Test Item Value Reference Range Interpretation Comments Chloride Lvl (test code = Chloride Lvl) 101 95-109 [facility]2016-12-25 11:03:00 Test Item Value Reference Range Interpretation Comments Potassium Lvl (test code = Potassium 4.4 3.5-5.1 Lvl) [facility]2016-12-25 11:03:00 Test Item Value Reference Range Interpretation Comments BUN (test code = BUN) 37 7-22 [facility]2016-12-25 11:03:00 Test Item Value Reference Range Interpretation Comments Glucose Lvl (test code = Glucose Lvl) 119 70-99 [facility]2016-12-25 11:03:00 Test Item Value Reference Range Interpretation Comments Creatinine Lvl (test code = Creatinine 2.00 0.50-1.40 Lvl) [facility]2016-12-25 11:03:00 Test Item Value Reference Range Interpretation Comments Sodium Lvl (test code = Sodium Lvl) 142 135-145 [facility]2016-12-25 11:03:00 Test Item Value Reference Range Interpretation Comments Calcium Lvl (test code = Calcium Lvl) 8.7 8.5-10.5 [facility]2016-12-25 11:03:00 Test Item Value Reference Range Interpretation Comments CO2 (test code = CO2) 32 24-32 [facility]2016-12-25 11:03:00 Test Item Value Reference Range Interpretation Comments AGAP (test code = AGAP) 13.4 10.0-20.0 [facility] HospitalOhlwxlhVVOJASHNAI2763-91-56 11:03:00 Test Item Value Reference Range Interpretation Comments Eosinophils (test code = 10.3 See_Comment [A utomated message] The Eosinophils) system which ge nerated this result tra nsmitted reference range : <=4.0. The reference r leo was not used to int erpret this result as normal/abnormal . [facility] HospitalIfufifiYOCRYYHGGN8566-31-10 11:03:00 Test Item Value Reference Range Interpretation Comments Basophils # (test code 0.1 See_Comment [Aut omated message] The = Basophils #) system which generated this result tra nsmitted reference range : <=0.2. The reference r leo was not used to int erpret this result as normal/abnormal . [facility] HospitalOuqqsubDEQFXJPQVR0714-43-54 11:03:00 Test Item Value Reference Range Interpretation Comments Eosinophils # (test code 0.5 See_Comment [A utomated message] The = Eosinophils #) system whic h generated this result tra nsmitted reference range : <=0.5. The reference r leo was not used to int erpret this result as normal/abnormal . [facility] HospitalPsbmuymYHUKWOFZRX8025-02-04 11:03:00 Test Item Value Reference Range Interpretation Comments Monocytes # (test code 0.5 See_Comment [Aut omated message] The = Monocytes #) system which generated this result tra nsmitted reference range : <=0.8. The reference r leo was not used to int erpret this result as normal/abnormal . [facility] HospitalXcssgevPJTHKOEPDE3412-07-61 11:03:00 Test Item Value Reference Range Interpretation Comments Segs-Bands # (test code = Segs-Bands #) 2.1 1.5-8.1 [facility] HospitalQcwagvvPZYUANNLVE4571-54-23 11:03:00 Test Item Value Reference Range Interpretation Comments Basophils (test code = 1.2 See_Comment [Aut omated message] The Basophils) system which ge nerated this result tra nsmitted reference range : <=1.0. The reference r leo was not used to int erpret this result as normal/abnormal . [facility] HospitalSxiatumWWINWEMFSQ3485-48-19 11:03:00 Test Item Value Reference Range Interpretation Comments Lymphocytes # (test code = Lymphocytes 1.9 1.0-5.5 #) [facility] HospitalJsqkyprQWNMIKWPEH1616-74-65 11:03:00 Test Item Value Reference Range Interpretation Comments Segs (test code = Segs) 42.5 45.0-75.0 [facility] HospitalYksqqqiWVEXJFSTUF4268-36-62 11:03:00 Test Item Value Reference Range Interpretation Comments Lymphocytes (test code = Lymphocytes) 37.0 20.0-40.0 [facility] HospitalDwmeygpDNTDHMPWBS4777-11-62 11:03:00 Test Item Value Reference Range Interpretation Comments Monocytes (test code = Monocytes) 9.0 2.0-12.0 [facility] HospitalIpgtqtmZPBEGESBGU5049-87-92 11:03:00 Test Item Value Reference Range Interpretation Comments MPV (test code = MPV) 9.8 7.4-10.4 [facility] HospitalVbzptdjTOWTSTEHIH7771-36-60 11:03:00 Test Item Value Reference Range Interpretation Comments WBC (test code = WBC) 5.0 3.7-10.4 [facility] HospitalSkqjxxaPENDMPZQGO5533-59-23 11:03:00 Test Item Value Reference Range Interpretation Comments RBC (test code = RBC) 3.57 4.20-5.40 [facility] HospitalIpmnultORIVUMZAIJ9244-98-81 11:03:00 Test Item Value Reference Range Interpretation Comments Hgb (test code = Hgb) 9.4 12.0-16.0 [facility] HospitalNzqofgpQIPBUJRYQA2644-24-54 11:03:00 Test Item Value Reference Range Interpretation Comments Hct (test code = Hct) 28.5 36.0-48.0 [facility] HospitalNqesrrnWXRJRDMNFJ7215-23-29 11:03:00 Test Item Value Reference Range Interpretation Comments Platelet (test code = Platelet) 183 133-450 [facility] HospitalFbxzwosDMDSEYSFUF3859-28-93 11:03:00 Test Item Value Reference Range Interpretation Comments MCV (test code = MCV) 79.9 80.0-98.0 [facility] HospitalIfoaalzJPZHEEFNQT5099-32-34 11:03:00 Test Item Value Reference Range Interpretation Comments MCH (test code = MCH) 26.3 pg 27.0-31.0 [facility] HospitalOibrhplDMXRQROGCN0145-59-81 11:03:00 Test Item Value Reference Range Interpretation Comments MCHC (test code = MCHC) 33.0 32.0-36.0 [facility] HospitalPgtclxeNDDCVSSFBC5866-00-83 11:03:00 Test Item Value Reference Range Interpretation Comments RDW (test code = RDW) 15.9 11.5-14.5 [facility]2016-12-25 11:03:00 Test Item Value Reference Range Interpretation Comments Phosphorus (test code = Phosphorus) 4.8 2.5-4.5 [facility]2016-12-25 11:03:00 Test Item Value Reference Range Interpretation Comments Magnesium Lvl (test code = Magnesium 2.0 1.8-2.4 Lvl) [facility]2016-12-25 11:03:00 Test Item Value Reference Range Interpretation Comments eGFR (test code = eGFR) 32 [facility]2016-12-25 11:03:00 Test Item Value Reference Range Interpretation Comments Chloride Lvl (test code = Chloride Lvl) 101 95-109 [facility]2016-12-25 11:03:00 Test Item Value Reference Range Interpretation Comments Potassium Lvl (test code = Potassium 4.4 3.5-5.1 Lvl) [facility]2016-12-25 11:03:00 Test Item Value Reference Range Interpretation Comments BUN (test code = BUN) 37 7-22 [facility]2016-12-25 11:03:00 Test Item Value Reference Range Interpretation Comments Glucose Lvl (test code = Glucose Lvl) 119 70-99 [place] 141206-12-25 11:03:00 Test Item Value Reference Range Interpretation Comments Creatinine Lvl (test code = Creatinine 2.00 0.50-1.40 Lvl) [facility]2016-12-25 11:03:00 Test Item Value Reference Range Interpretation Comments Sodium Lvl (test code = Sodium Lvl) 142 135-145 [facility]2016-12-25 11:03:00 Test Item Value Reference Range Interpretation Comments Calcium Lvl (test code = Calcium Lvl) 8.7 8.5-10.5 [facility]2016-12-25 11:03:00 Test Item Value Reference Range Interpretation Comments CO2 (test code = CO2) 32 24-32 [place] 141206-12-25 11:03:00 Test Item Value Reference Range Interpretation Comments AGAP (test code = AGAP) 13.4 10.0-20.0 [facility] HospitalUqompoeGVALITTZPC3125-23-48 11:03:00 Test Item Value Reference Range Interpretation Comments Eosinophils (test code = 10.3 See_Comment [A utomated message] The Eosinophils) system which ge nerated this result tra nsmitted reference range : <=4.0. The reference r leo was not used to int erpret this result as normal/abnormal . [facility] HospitalZcmrvzfTNDWDZJIZT0726-72-10 11:03:00 Test Item Value Reference Range Interpretation Comments Basophils # (test code 0.1 See_Comment [Aut omated message] The = Basophils #) system which generated this result tra nsmitted reference range : <=0.2. The reference r leo was not used to int erpret this result as normal/abnormal . [facility] HospitalYjcrqiqVIGXMNUXVJ7880-50-75 11:03:00 Test Item Value Reference Range Interpretation Comments Eosinophils # (test code 0.5 See_Comment [A utomated message] The = Eosinophils #) system whic h generated this result tra nsmitted reference range : <=0.5. The reference r leo was not used to int erpret this result as normal/abnormal . [facility] HospitalNogatwgOZXEEDKKXR4320-24-62 11:03:00 Test Item Value Reference Range Interpretation Comments Monocytes # (test code 0.5 See_Comment [Aut omated message] The = Monocytes #) system which generated this result tra nsmitted reference range : <=0.8. The reference r leo was not used to int erpret this result as normal/abnormal . [facility] HospitalLeaivemHSUZXGOSZR9767-10-06 11:03:00 Test Item Value Reference Range Interpretation Comments Segs-Bands # (test code = Segs-Bands #) 2.1 1.5-8.1 [facility] HospitalStpmtvdARXPKXFDBP5774-52-70 11:03:00 Test Item Value Reference Range Interpretation Comments Basophils (test code = 1.2 See_Comment [Aut omated message] The Basophils) system which ge nerated this result tra nsmitted reference range : <=1.0. The reference r leo was not used to int erpret this result as normal/abnormal . [facility] HospitalLdznqmzMSJAELWIAI4441-54-10 11:03:00 Test Item Value Reference Range Interpretation Comments Lymphocytes # (test code = Lymphocytes 1.9 1.0-5.5 #) [facility] HospitalFhwrgunUCQZPYOVFA9470-31-62 11:03:00 Test Item Value Reference Range Interpretation Comments Segs (test code = Segs) 42.5 45.0-75.0 [facility] HospitalWopwqesNYKGRZQPXW0165-96-17 11:03:00 Test Item Value Reference Range Interpretation Comments Lymphocytes (test code = Lymphocytes) 37.0 20.0-40.0 [facility] HospitalQuhvgquVSJBIIPBTY2366-56-41 11:03:00 Test Item Value Reference Range Interpretation Comments Monocytes (test code = Monocytes) 9.0 2.0-12.0 [facility] HospitalGsfseshSIENILHAKG9175-62-42 11:03:00 Test Item Value Reference Range Interpretation Comments MPV (test code = MPV) 9.8 7.4-10.4 [facility] HospitalXqwldujQYPUCERFBG5089-32-32 11:03:00 Test Item Value Reference Range Interpretation Comments WBC (test code = WBC) 5.0 3.7-10.4 [facility] HospitalTdeyatnTLVSBZDYCK1151-06-28 11:03:00 Test Item Value Reference Range Interpretation Comments RBC (test code = RBC) 3.57 4.20-5.40 [facility] HospitalMkjcmxdIEWWRGETMM8660-63-21 11:03:00 Test Item Value Reference Range Interpretation Comments Hgb (test code = Hgb) 9.4 12.0-16.0 [facility] HospitalVlsytjwUTQDXFLSAV1592-66-98 11:03:00 Test Item Value Reference Range Interpretation Comments Hct (test code = Hct) 28.5 36.0-48.0 [facility] HospitalZwwhgmdZESMRIDEEP8745-22-35 11:03:00 Test Item Value Reference Range Interpretation Comments Platelet (test code = Platelet) 183 133-450 [facility] HospitalCteqekfGLAAEVVRTK1703-36-67 11:03:00 Test Item Value Reference Range Interpretation Comments MCV (test code = MCV) 79.9 80.0-98.0 [facility] HospitalCjbkvzgVTOZINMFGT4929-37-17 11:03:00 Test Item Value Reference Range Interpretation Comments MCH (test code = MCH) 26.3 pg 27.0-31.0 [facility] HospitalNblivxzVKSHAPXMHF0182-14-44 11:03:00 Test Item Value Reference Range Interpretation Comments MCHC (test code = MCHC) 33.0 32.0-36.0 [facility] HospitalVehabcxNKESRBREEH8932-25-23 11:03:00 Test Item Value Reference Range Interpretation Comments RDW (test code = RDW) 15.9 11.5-14.5 [facility]2016-12-25 11:03:00 Test Item Value Reference Range Interpretation Comments Phosphorus (test code = Phosphorus) 4.8 2.5-4.5 [facility]2016-12-25 11:03:00 Test Item Value Reference Range Interpretation Comments Magnesium Lvl (test code = Magnesium 2.0 1.8-2.4 Lvl) [facility]2016-12-25 11:03:00 Test Item Value Reference Range Interpretation Comments eGFR (test code = eGFR) 32 [facility]2016-12-25 11:03:00 Test Item Value Reference Range Interpretation Comments Chloride Lvl (test code = Chloride Lvl) 101 95-109 [facility]2016-12-25 11:03:00 Test Item Value Reference Range Interpretation Comments Potassium Lvl (test code = Potassium 4.4 3.5-5.1 Lvl) [facility]2016-12-25 11:03:00 Test Item Value Reference Range Interpretation Comments BUN (test code = BUN) 37 7-22 [facility]2016-12-25 11:03:00 Test Item Value Reference Range Interpretation Comments Glucose Lvl (test code = Glucose Lvl) 119 70-99 [facility]2016-12-25 11:03:00 Test Item Value Reference Range Interpretation Comments Creatinine Lvl (test code = Creatinine 2.00 0.50-1.40 Lvl) [facility]2016-12-25 11:03:00 Test Item Value Reference Range Interpretation Comments Sodium Lvl (test code = Sodium Lvl) 142 135-145 [facility]2016-12-25 11:03:00 Test Item Value Reference Range Interpretation Comments Calcium Lvl (test code = Calcium Lvl) 8.7 8.5-10.5 [facility]2016-12-25 11:03:00 Test Item Value Reference Range Interpretation Comments CO2 (test code = CO2) 32 24-32 [facility]2016-12-25 11:03:00 Test Item Value Reference Range Interpretation Comments AGAP (test code = AGAP) 13.4 10.0-20.0 [facility] HospitalJqraubpVOESHTKHZE4887-73-54 11:03:00 Test Item Value Reference Range Interpretation Comments Eosinophils (test code = 10.3 See_Comment [A utomated message] The Eosinophils) system which ge nerated this result tra nsmitted reference range : <=4.0. The reference r leo was not used to int erpret this result as normal/abnormal . [facility] HospitalEnmstewUYRUSQBHVL3236-00-01 11:03:00 Test Item Value Reference Range Interpretation Comments Basophils # (test code 0.1 See_Comment [Aut omated message] The = Basophils #) system which generated this result tra nsmitted reference range : <=0.2. The reference r leo was not used to int erpret this result as normal/abnormal . [facility]SjsbfpfKADNFWNODZ8454-68-41 11:03:00 Test Item Value Reference Range Interpretation Comments Eosinophils # (test code 0.5 See_Comment [A utomated message] The = Eosinophils #) system whic h generated this result tra nsmitted reference range : <=0.5. The reference r leo was not used to int erpret this result as normal/abnormal . [facility] HospitalNnlrgreUYZMXOXMVF2184-42-54 11:03:00 Test Item Value Reference Range Interpretation Comments Monocytes # (test code 0.5 See_Comment [Aut omated message] The = Monocytes #) system which generated this result tra nsmitted reference range : <=0.8. The reference r leo was not used to int erpret this result as normal/abnormal . [facility] HospitalSgzizpqVOZFXBYYVF5619-52-15 11:03:00 Test Item Value Reference Range Interpretation Comments Segs-Bands # (test code = Segs-Bands #) 2.1 1.5-8.1 [facility] HospitalWwkhsheTGBJAQJXHO3529-88-47 11:03:00 Test Item Value Reference Range Interpretation Comments Basophils (test code = 1.2 See_Comment [Aut omated message] The Basophils) system which ge nerated this result tra nsmitted reference range : <=1.0. The reference r leo was not used to int erpret this result as normal/abnormal . [facility] HospitalYsrtgtlRFUMLOMSUD1122-38-92 11:03:00 Test Item Value Reference Range Interpretation Comments Lymphocytes # (test code = Lymphocytes 1.9 1.0-5.5 #) [facility] HospitalMdgaoqeLTTQSRCPDU7442-28-00 11:03:00 Test Item Value Reference Range Interpretation Comments Segs (test code = Segs) 42.5 45.0-75.0 [facility] HospitalYueusmyJLBVCBXJDR9317-84-39 11:03:00 Test Item Value Reference Range Interpretation Comments Lymphocytes (test code = Lymphocytes) 37.0 20.0-40.0 [facility] HospitalLygaviiQRHUDCPDBG6107-39-40 11:03:00 Test Item Value Reference Range Interpretation Comments Monocytes (test code = Monocytes) 9.0 2.0-12.0 [facility] HospitalRgieehaDDOGOJCUYW0066-20-50 11:03:00 Test Item Value Reference Range Interpretation Comments MPV (test code = MPV) 9.8 7.4-10.4 [facility] HospitalGrsrzfiTEHRYBEUPO0015-32-43 11:03:00 Test Item Value Reference Range Interpretation Comments WBC (test code = WBC) 5.0 3.7-10.4 [facility] HospitalPamswmhELOWABUBAC9104-64-72 11:03:00 Test Item Value Reference Range Interpretation Comments RBC (test code = RBC) 3.57 4.20-5.40 [facility] HospitalPxsozxgURICZUHZHP9151-94-37 11:03:00 Test Item Value Reference Range Interpretation Comments Hgb (test code = Hgb) 9.4 12.0-16.0 [facility] HospitalWraqvjgYDNCAKMECC8818-82-99 11:03:00 Test Item Value Reference Range Interpretation Comments Hct (test code = Hct) 28.5 36.0-48.0 [facility] HospitalBydcrntAWOQURIHBO1755-91-25 11:03:00 Test Item Value Reference Range Interpretation Comments Platelet (test code = Platelet) 183 133-450 [facility] HospitalHcbwrlhPJNTBTWRAV6276-65-31 11:03:00 Test Item Value Reference Range Interpretation Comments MCV (test code = MCV) 79.9 80.0-98.0 [facility] HospitalXeyurbpWNTSDHFBZR3397-66-26 11:03:00 Test Item Value Reference Range Interpretation Comments MCH (test code = MCH) 26.3 pg 27.0-31.0 [facility] HospitalJldeadsRFLSJNOTMO5990-88-38 11:03:00 Test Item Value Reference Range Interpretation Comments MCHC (test code = MCHC) 33.0 32.0-36.0 [facility] HospitalExxdrkoDIGGUWYEFG9315-46-27 11:03:00 Test Item Value Reference Range Interpretation Comments RDW (test code = RDW) 15.9 11.5-14.5 [facility]2016-12-25 11:03:00 Test Item Value Reference Range Interpretation Comments Phosphorus (test code = Phosphorus) 4.8 2.5-4.5 [facility]2016-12-25 11:03:00 Test Item Value Reference Range Interpretation Comments Magnesium Lvl (test code = Magnesium 2.0 1.8-2.4 Lvl) [facility]2016-12-25 11:03:00 Test Item Value Reference Range Interpretation Comments eGFR (test code = eGFR) 32 [facility]2016-12-25 11:03:00 Test Item Value Reference Range Interpretation Comments Chloride Lvl (test code = Chloride Lvl) 101 95-109 [facility]2016-12-25 11:03:00 Test Item Value Reference Range Interpretation Comments Potassium Lvl (test code = Potassium 4.4 3.5-5.1 Lvl) [facility]2016-12-25 11:03:00 Test Item Value Reference Range Interpretation Comments BUN (test code = BUN) 37 7-22 [facility]2016-12-25 11:03:00 Test Item Value Reference Range Interpretation Comments Glucose Lvl (test code = Glucose Lvl) 119 70-99 [facility]2016-12-25 11:03:00 Test Item Value Reference Range Interpretation Comments Creatinine Lvl (test code = Creatinine 2.00 0.50-1.40 Lvl) [facility]2016-12-25 11:03:00 Test Item Value Reference Range Interpretation Comments Sodium Lvl (test code = Sodium Lvl) 142 135-145 [facility]2016-12-25 11:03:00 Test Item Value Reference Range Interpretation Comments Calcium Lvl (test code = Calcium Lvl) 8.7 8.5-10.5 [facility]2016-12-25 11:03:00 Test Item Value Reference Range Interpretation Comments CO2 (test code = CO2) 32 24-32 [facility]2016-12-25 11:03:00 Test Item Value Reference Range Interpretation Comments AGAP (test code = AGAP) 13.4 10.0-20.0 [facility] HospitalPrlvnwqYCPIHPVWYF2908-55-62 11:03:00 Test Item Value Reference Range Interpretation Comments Eosinophils (test code = 10.3 See_Comment [A utomated message] The Eosinophils) system which ge nerated this result tra nsmitted reference range : <=4.0. The reference r leo was not used to int erpret this result as normal/abnormal . [facility] HospitalSnuwtqbEKBAYFUASX8733-61-19 11:03:00 Test Item Value Reference Range Interpretation Comments Basophils # (test code 0.1 See_Comment [Aut omated message] The = Basophils #) system which generated this result tra nsmitted reference range : <=0.2. The reference r leo was not used to int erpret this result as normal/abnormal . [facility] HospitalEramjelMERHUUSQHD2264-65-23 11:03:00 Test Item Value Reference Range Interpretation Comments Eosinophils # (test code 0.5 See_Comment [A utomated message] The = Eosinophils #) system whic h generated this result tra nsmitted reference range : <=0.5. The reference r leo was not used to int erpret this result as normal/abnormal . [facility] HospitalSjffawtUQHARYUFYE2223-75-42 11:03:00 Test Item Value Reference Range Interpretation Comments Monocytes # (test code 0.5 See_Comment [Aut omated message] The = Monocytes #) system which generated this result tra nsmitted reference range : <=0.8. The reference r leo was not used to int erpret this result as normal/abnormal . [facility] HospitalHniycpwWQBHGZRJQZ2564-85-92 11:03:00 Test Item Value Reference Range Interpretation Comments Segs-Bands # (test code = Segs-Bands #) 2.1 1.5-8.1 [facility] HospitalOqiwfspYEFUPLCLKW4708-92-42 11:03:00 Test Item Value Reference Range Interpretation Comments Basophils (test code = 1.2 See_Comment [Aut omated message] The Basophils) system which ge nerated this result tra nsmitted reference range : <=1.0. The reference r leo was not used to int erpret this result as normal/abnormal . [facility] HospitalWntsscoFKSOJVVZLS5030-33-12 11:03:00 Test Item Value Reference Range Interpretation Comments Lymphocytes # (test code = Lymphocytes 1.9 1.0-5.5 #) [facility] HospitalTwojglgTLIPQHQIPD7773-93-34 11:03:00 Test Item Value Reference Range Interpretation Comments Segs (test code = Segs) 42.5 45.0-75.0 [facility] HospitalTkvrjnvQECIDPYNJT1806-85-14 11:03:00 Test Item Value Reference Range Interpretation Comments Lymphocytes (test code = Lymphocytes) 37.0 20.0-40.0 [facility] HospitalHrmcerqIOAVSMUBNP0766-22-71 11:03:00 Test Item Value Reference Range Interpretation Comments Monocytes (test code = Monocytes) 9.0 2.0-12.0 [facility] HospitalVgrorlxOQHECLLVCS8893-39-80 11:03:00 Test Item Value Reference Range Interpretation Comments MPV (test code = MPV) 9.8 7.4-10.4 [facility] HospitalGcyafzfNCUIWYEMOU9588-02-35 11:03:00 Test Item Value Reference Range Interpretation Comments WBC (test code = WBC) 5.0 3.7-10.4 [facility] HospitalOfsqxspIFVBAJQSCB6511-79-45 11:03:00 Test Item Value Reference Range Interpretation Comments RBC (test code = RBC) 3.57 4.20-5.40 [facility] HospitalOaxbnwmIGVZPTJRHW3021-70-06 11:03:00 Test Item Value Reference Range Interpretation Comments Hgb (test code = Hgb) 9.4 12.0-16.0 [facility] HospitalYrcutcxOPWROPSCGF8060-12-24 11:03:00 Test Item Value Reference Range Interpretation Comments Hct (test code = Hct) 28.5 36.0-48.0 [facility] HospitalJpfbsgvABDUDVLINF8397-49-57 11:03:00 Test Item Value Reference Range Interpretation Comments Platelet (test code = Platelet) 183 133-450 [facility] HospitalWqnrttzSURGKXGDDN8063-51-89 11:03:00 Test Item Value Reference Range Interpretation Comments MCV (test code = MCV) 79.9 80.0-98.0 [facility] HospitalXurspwzCQOAVJXCGV8589-71-04 11:03:00 Test Item Value Reference Range Interpretation Comments MCH (test code = MCH) 26.3 pg 27.0-31.0 [facility] HospitalUncnrbrDVCJUXROZD6360-77-02 11:03:00 Test Item Value Reference Range Interpretation Comments MCHC (test code = MCHC) 33.0 32.0-36.0 [facility] HospitalZsxfpvtZYHJWYCEZX3796-17-56 11:03:00 Test Item Value Reference Range Interpretation Comments RDW (test code = RDW) 15.9 11.5-14.5 [facility]2016-12-24 10:26:00 Test Item Value Reference Range Interpretation Comments U Prot/Creat (test code = U Prot/Creat) 6.9 [facility]2016-12-24 10:26:00 Test Item Value Reference Range Interpretation Comments U Creatinine (test code = U Creatinine) 19.30 [facility]2016-12-24 10:26:00 Test Item Value Reference Range Interpretation Comments U Protein (test code = U Protein) 133.1 [facility]2016-12-24 10:26:00 Test Item Value Reference Range Interpretation Comments U Prot/Creat (test code = U Prot/Creat) 6.9 [facility]2016-12-24 10:26:00 Test Item Value Reference Range Interpretation Comments U Creatinine (test code = U Creatinine) 19.30 [facility]2016-12-24 10:26:00 Test Item Value Reference Range Interpretation Comments U Protein (test code = U Protein) 133.1 [facility]2016-12-24 10:26:00 Test Item Value Reference Range Interpretation Comments U Prot/Creat (test code = U Prot/Creat) 6.9 [facility]2016-12-24 10:26:00 Test Item Value Reference Range Interpretation Comments U Creatinine (test code = U Creatinine) 19.30 [facility]2016-12-24 10:26:00 Test Item Value Reference Range Interpretation Comments U Protein (test code = U Protein) 133.1 [facility]2016-12-24 10:26:00 Test Item Value Reference Range Interpretation Comments U Prot/Creat (test code = U Prot/Creat) 6.9 [facility]2016-12-24 10:26:00 Test Item Value Reference Range Interpretation Comments U Creatinine (test code = U Creatinine) 19.30 [facility]2016-12-24 10:26:00 Test Item Value Reference Range Interpretation Comments U Protein (test code = U Protein) 133.1 [facility]2016-12-24 10:26:00 Test Item Value Reference Range Interpretation Comments U Prot/Creat (test code = U Prot/Creat) 6.9 [facility]2016-12-24 10:26:00 Test Item Value Reference Range Interpretation Comments U Creatinine (test code = U Creatinine) 19.30 [facility]2016-12-24 10:26:00 Test Item Value Reference Range Interpretation Comments U Protein (test code = U Protein) 133.1 [facility] HospitalMuezonvNMMFBZPOKT4959-31-69 09:20:00 Test Item Value Reference Range Interpretation Comments MPV (test code = MPV) 9.7 7.4-10.4 [facility] HospitalTxbpyxqWIHCBQJWIH5718-41-30 09:20:00 Test Item Value Reference Range Interpretation Comments Platelet (test code = Platelet) 184 133-450 [facility] HospitalZcljwztVWBOHYMQXA3012-10-19 09:20:00 Test Item Value Reference Range Interpretation Comments RDW (test code = RDW) 15.9 11.5-14.5 [facility] HospitalWnsvdofWDNFJKAGXA6567-02-95 09:20:00 Test Item Value Reference Range Interpretation Comments MCV (test code = MCV) 79.3 80.0-98.0 [facility] HospitalBkdlotpWNOOAEDEGY4405-93-52 09:20:00 Test Item Value Reference Range Interpretation Comments MCHC (test code = MCHC) 33.0 32.0-36.0 [facility] HospitalPecirpwVZXYKKNSVF8175-96-36 09:20:00 Test Item Value Reference Range Interpretation Comments MCH (test code = MCH) 26.2 pg 27.0-31.0 [facility] HospitalSedsyypXVGIXITWAZ7380-69-46 09:20:00 Test Item Value Reference Range Interpretation Comments Hct (test code = Hct) 29.4 36.0-48.0 [facility] HospitalXibdvyrLDTNOSICMA5517-43-78 09:20:00 Test Item Value Reference Range Interpretation Comments Hgb (test code = Hgb) 9.7 12.0-16.0 [place] 563206-12-24 09:20:00 Test Item Value Reference Range Interpretation Comments RBC (test code = RBC) 3.70 4.20-5.40 [facility] HospitalRukkbgwVRPZGBRTVV2629-40-11 09:20:00 Test Item Value Reference Range Interpretation Comments WBC (test code = WBC) 5.7 3.7-10.4 [facility] HospitalIeozehsUBIDDNJBRL5860-55-01 09:20:00 Test Item Value Reference Range Interpretation Comments Basophils # (test code 0.1 See_Comment [Aut omated message] The = Basophils #) system which generated this result tra nsmitted reference range : <=0.2. The reference r leo was not used to int erpret this result as normal/abnormal . [facility] HospitalAwngczxDPORHKANBS5123-95-70 09:20:00 Test Item Value Reference Range Interpretation Comments Lymphocytes # (test code = Lymphocytes 2.2 1.0-5.5 #) [place] [id number] 09:20:00 Test Item Value Reference Range Interpretation Comments Eosinophils # (test code 0.5 See_Comment [A utomated message] The = Eosinophils #) system whic h generated this result tra nsmitted reference range : <=0.5. The reference r leo was not used to int erpret this result as normal/abnormal . [facility] HospitalIezddiaGRTZXFQPXK2834-92-12 09:20:00 Test Item Value Reference Range Interpretation Comments Monocytes # (test code 0.5 See_Comment [Aut omated message] The = Monocytes #) system which generated this result tra nsmitted reference range : <=0.8. The reference r leo was not used to int erpret this result as normal/abnormal . [facility] HospitalLsaxsphEIDDPXIULE8905-14-99 09:20:00 Test Item Value Reference Range Interpretation Comments Basophils (test code = 1.1 See_Comment [Aut omated message] The Basophils) system which ge nerated this result tra nsmitted reference range : <=1.0. The reference r leo was not used to int erpret this result as normal/abnormal . [facility] HospitalDpjmynzFBVPDTDQAY2389-55-28 09:20:00 Test Item Value Reference Range Interpretation Comments Segs-Bands # (test code = Segs-Bands #) 2.3 1.5-8.1 [facility] HospitalZduhbouZINUCUNQTW7148-57-37 09:20:00 Test Item Value Reference Range Interpretation Comments Eosinophils (test code = 9.5 See_Comment [A utomated message] The Eosinophils) system which ge nerated this result tra nsmitted reference range : <=4.0. The reference r leo was not used to int erpret this result as normal/abnormal . [facility] HospitalYnreixvWHCGZPEGXB0144-08-10 09:20:00 Test Item Value Reference Range Interpretation Comments Monocytes (test code = Monocytes) 9.0 2.0-12.0 [facility] HospitalUqqvfeyNRKEEWBSZI0387-05-22 09:20:00 Test Item Value Reference Range Interpretation Comments Lymphocytes (test code = Lymphocytes) 38.9 20.0-40.0 [facility] HospitalDvqfvulVVXDBISDFP8610-03-28 09:20:00 Test Item Value Reference Range Interpretation Comments Segs (test code = Segs) 41.5 45.0-75.0 [facility] HospitalVvignfgHQZFGZEZME9119-12-69 09:20:00 Test Item Value Reference Range Interpretation Comments MPV (test code = MPV) 9.7 7.4-10.4 [facility] HospitalJmqeyqrUWTMINPDLH7744-55-53 09:20:00 Test Item Value Reference Range Interpretation Comments Platelet (test code = Platelet) 184 133-450 [facility] HospitalBonmznlXEJQXXFJDG3591-26-09 09:20:00 Test Item Value Reference Range Interpretation Comments RDW (test code = RDW) 15.9 11.5-14.5 [facility] HospitalBimkjotVFUGIOWOYD0975-57-90 09:20:00 Test Item Value Reference Range Interpretation Comments MCV (test code = MCV) 79.3 80.0-98.0 [facility] HospitalQxbzkwgTTAZVERSWL8562-66-62 09:20:00 Test Item Value Reference Range Interpretation Comments MCHC (test code = MCHC) 33.0 32.0-36.0 [facility] HospitalOiuqrzlMZJOKYQADJ1771-56-24 09:20:00 Test Item Value Reference Range Interpretation Comments MCH (test code = MCH) 26.2 pg 27.0-31.0 [facility] HospitalYanxfnbVFBKJLONHE1054-69-79 09:20:00 Test Item Value Reference Range Interpretation Comments Hct (test code = Hct) 29.4 36.0-48.0 [facility] HospitalHznvfjzPJVYAFRJQF0542-39-78 09:20:00 Test Item Value Reference Range Interpretation Comments Hgb (test code = Hgb) 9.7 12.0-16.0 [facility] HospitalEwfxrvfHMVBFQKSCR8980-78-66 09:20:00 Test Item Value Reference Range Interpretation Comments RBC (test code = RBC) 3.70 4.20-5.40 [facility] HospitalSxmatdkZBJHIOTYNI5687-61-36 09:20:00 Test Item Value Reference Range Interpretation Comments WBC (test code = WBC) 5.7 3.7-10.4 [facility] HospitalSijmjgaQYAYFQHSKB1012-29-88 09:20:00 Test Item Value Reference Range Interpretation Comments Basophils # (test code 0.1 See_Comment [Aut omated message] The = Basophils #) system which generated this result tra nsmitted reference range : <=0.2. The reference r leo was not used to int erpret this result as normal/abnormal . [facility] HospitalQcztbbpIMJOASHMMM4751-79-28 09:20:00 Test Item Value Reference Range Interpretation Comments Lymphocytes # (test code = Lymphocytes 2.2 1.0-5.5 #) [facility] HospitalSmpkoqrWBZAWNZVVT9194-10-18 09:20:00 Test Item Value Reference Range Interpretation Comments Eosinophils # (test code 0.5 See_Comment [A utomated message] The = Eosinophils #) system whic h generated this result tra nsmitted reference range : <=0.5. The reference r leo was not used to int erpret this result as normal/abnormal . [facility] HospitalAwozwjdDYHMNCMIJV0880-24-18 09:20:00 Test Item Value Reference Range Interpretation Comments Monocytes # (test code 0.5 See_Comment [Aut omated message] The = Monocytes #) system which generated this result tra nsmitted reference range : <=0.8. The reference r leo was not used to int erpret this result as normal/abnormal . [facility] HospitalQqonfniHMBBLCYOTF7368-61-86 09:20:00 Test Item Value Reference Range Interpretation Comments Basophils (test code = 1.1 See_Comment [Aut omated message] The Basophils) system which ge nerated this result tra nsmitted reference range : <=1.0. The reference r leo was not used to int erpret this result as normal/abnormal . [facility] HospitalRptezdbRUFKFUTFBD0150-00-93 09:20:00 Test Item Value Reference Range Interpretation Comments Segs-Bands # (test code = Segs-Bands #) 2.3 1.5-8.1 [facility] HospitalBpwxlmyVLZQGAURYK4079-62-65 09:20:00 Test Item Value Reference Range Interpretation Comments Eosinophils (test code = 9.5 See_Comment [A utomated message] The Eosinophils) system which ge nerated this result tra nsmitted reference range : <=4.0. The reference r leo was not used to int erpret this result as normal/abnormal . [facility] HospitalSzoupprAIOKVAZAMC1261-72-62 09:20:00 Test Item Value Reference Range Interpretation Comments Monocytes (test code = Monocytes) 9.0 2.0-12.0 [facility] HospitalXsrmrbmPQOHGCDHBH3528-41-51 09:20:00 Test Item Value Reference Range Interpretation Comments Lymphocytes (test code = Lymphocytes) 38.9 20.0-40.0 [facility] HospitalYldzmfgZEXSZCOXMH4912-31-35 09:20:00 Test Item Value Reference Range Interpretation Comments Segs (test code = Segs) 41.5 45.0-75.0 [facility] HospitalPchmnseRVJPDFSNJF5470-84-31 09:20:00 Test Item Value Reference Range Interpretation Comments MPV (test code = MPV) 9.7 7.4-10.4 [facility] HospitalMqteetnYBMUNGILYT9001-12-71 09:20:00 Test Item Value Reference Range Interpretation Comments Platelet (test code = Platelet) 184 133-450 [facility] HospitalKibsozdLOUULPXDTH4315-87-81 09:20:00 Test Item Value Reference Range Interpretation Comments RDW (test code = RDW) 15.9 11.5-14.5 [facility] HospitalHoobyolDGSDXHMWAR4634-98-10 09:20:00 Test Item Value Reference Range Interpretation Comments MCV (test code = MCV) 79.3 80.0-98.0 [facility] HospitalMqrwqepTZGLBMFNPK7217-52-67 09:20:00 Test Item Value Reference Range Interpretation Comments MCHC (test code = MCHC) 33.0 32.0-36.0 [facility] HospitalZfttmwoFVTUYYDDVK4906-69-76 09:20:00 Test Item Value Reference Range Interpretation Comments MCH (test code = MCH) 26.2 pg 27.0-31.0 [facility] HospitalZlkbixgOPPJPPFXGT0923-74-46 09:20:00 Test Item Value Reference Range Interpretation Comments Hct (test code = Hct) 29.4 36.0-48.0 [facility] HospitalJcuonmkJUWCZCAMCZ2127-89-84 09:20:00 Test Item Value Reference Range Interpretation Comments Hgb (test code = Hgb) 9.7 12.0-16.0 [facility] HospitalGdnqxwzCCKPQICIAF6589-57-95 09:20:00 Test Item Value Reference Range Interpretation Comments RBC (test code = RBC) 3.70 4.20-5.40 [facility] HospitalBqbgznfFSGAFWYZDK4085-41-53 09:20:00 Test Item Value Reference Range Interpretation Comments WBC (test code = WBC) 5.7 3.7-10.4 [facility] HospitalSrxffykABZEXIUKZC5821-03-94 09:20:00 Test Item Value Reference Range Interpretation Comments Basophils # (test code 0.1 See_Comment [Aut omated message] The = Basophils #) system which generated this result tra nsmitted reference range : <=0.2. The reference r leo was not used to int erpret this result as normal/abnormal . [facility] HospitalNjsjlcrUZLLMATYLL9673-82-61 09:20:00 Test Item Value Reference Range Interpretation Comments Lymphocytes # (test code = Lymphocytes 2.2 1.0-5.5 #) [facility] HospitalFrzimaoSEBTZYHDUW1830-51-37 09:20:00 Test Item Value Reference Range Interpretation Comments Eosinophils # (test code 0.5 See_Comment [A utomated message] The = Eosinophils #) system whic h generated this result tra nsmitted reference range : <=0.5. The reference r leo was not used to int erpret this result as normal/abnormal . [facility] HospitalJkootbxNLTVLEAFSP7022-23-52 09:20:00 Test Item Value Reference Range Interpretation Comments Monocytes # (test code 0.5 See_Comment [Aut omated message] The = Monocytes #) system which generated this result tra nsmitted reference range : <=0.8. The reference r leo was not used to int erpret this result as normal/abnormal . [facility] HospitalUoeoiaaLPGVBGOACC0438-43-80 09:20:00 Test Item Value Reference Range Interpretation Comments Basophils (test code = 1.1 See_Comment [Aut omated message] The Basophils) system which ge nerated this result tra nsmitted reference range : <=1.0. The reference r leo was not used to int erpret this result as normal/abnormal . [facility] HospitalWaooadlOBJADSMRBG6692-71-91 09:20:00 Test Item Value Reference Range Interpretation Comments Segs-Bands # (test code = Segs-Bands #) 2.3 1.5-8.1 [facility] [facility]Errbsxx[facility]GFOYCCXJG5069-46-64 09:20:00 Test Item Value Reference Range Interpretation Comments Eosinophils (test code = 9.5 See_Comment [A utomated message] The Eosinophils) system which ge nerated this result tra nsmitted reference range : <=4.0. The reference r leo was not used to int erpret this result as normal/abnormal . [facility]SghamjtWNLAIGDTAY3924-03-35 09:20:00 Test Item Value Reference Range Interpretation Comments Monocytes (test code = Monocytes) 9.0 2.0-12.0 [facility] HospitalViktowaDGHENKWHUS1335-78-19 09:20:00 Test Item Value Reference Range Interpretation Comments Lymphocytes (test code = Lymphocytes) 38.9 20.0-40.0 [facility] HospitalDgvtqlvCHVHEIRLMP8144-37-24 09:20:00 Test Item Value Reference Range Interpretation Comments Segs (test code = Segs) 41.5 45.0-75.0 [facility] HospitalHjlvallBXEVZFFGPW9307-69-97 09:20:00 Test Item Value Reference Range Interpretation Comments MPV (test code = MPV) 9.7 7.4-10.4 [facility] HospitalIxrcczeFTFKCMDCRA9578-81-85 09:20:00 Test Item Value Reference Range Interpretation Comments Platelet (test code = Platelet) 184 133-450 [facility] HospitalUqlsdfvAUCREGHPPZ5685-79-01 09:20:00 Test Item Value Reference Range Interpretation Comments RDW (test code = RDW) 15.9 11.5-14.5 [facility] HospitalBkovytqPVKMTOPBLU4855-21-53 09:20:00 Test Item Value Reference Range Interpretation Comments MCV (test code = MCV) 79.3 80.0-98.0 [facility] HospitalBxubznfXYHSAUFCRI5768-42-16 09:20:00 Test Item Value Reference Range Interpretation Comments MCHC (test code = MCHC) 33.0 32.0-36.0 [facility] HospitalSwvykgnNXLTFHGPNG7156-04-19 09:20:00 Test Item Value Reference Range Interpretation Comments MCH (test code = MCH) 26.2 pg 27.0-31.0 [facility] HospitalKzvkjdjREIXACKOWX0087-01-37 09:20:00 Test Item Value Reference Range Interpretation Comments Hct (test code = Hct) 29.4 36.0-48.0 [facility] HospitalTvmabnuSDAHBAMPDR6867-60-62 09:20:00 Test Item Value Reference Range Interpretation Comments Hgb (test code = Hgb) 9.7 12.0-16.0 [facility] HospitalYsoktegDGRJFHEVZJ4794-14-65 09:20:00 Test Item Value Reference Range Interpretation Comments RBC (test code = RBC) 3.70 4.20-5.40 [facility] HospitalBszqukwNKRWBFYQRO1303-50-95 09:20:00 Test Item Value Reference Range Interpretation Comments WBC (test code = WBC) 5.7 3.7-10.4 [facility] HospitalQgipozfTEFEVGJWKL6584-79-30 09:20:00 Test Item Value Reference Range Interpretation Comments Basophils # (test code 0.1 See_Comment [Aut omated message] The = Basophils #) system which generated this result tra nsmitted reference range : <=0.2. The reference r leo was not used to int erpret this result as normal/abnormal . [facility] HospitalQokymwfNTWOJHMHCU5551-45-69 09:20:00 Test Item Value Reference Range Interpretation Comments Lymphocytes # (test code = Lymphocytes 2.2 1.0-5.5 #) [facility] HospitalDpbrkovEUYOEJUUHL4509-28-33 09:20:00 Test Item Value Reference Range Interpretation Comments Eosinophils # (test code 0.5 See_Comment [A utomated message] The = Eosinophils #) system whic h generated this result tra nsmitted reference range : <=0.5. The reference r leo was not used to int erpret this result as normal/abnormal . [facility] HospitalFbrseqaCMGOEFZEDF2603-48-85 09:20:00 Test Item Value Reference Range Interpretation Comments Monocytes # (test code 0.5 See_Comment [Aut omated message] The = Monocytes #) system which generated this result tra nsmitted reference range : <=0.8. The reference r leo was not used to int erpret this result as normal/abnormal . [facility] HospitalElbyabxIUCWQSNJYX3974-17-58 09:20:00 Test Item Value Reference Range Interpretation Comments Basophils (test code = 1.1 See_Comment [Aut omated message] The Basophils) system which ge nerated this result tra nsmitted reference range : <=1.0. The reference r leo was not used to int erpret this result as normal/abnormal . [facility] HospitalXuspnjcDYYLQHMPVQ3652-14-77 09:20:00 Test Item Value Reference Range Interpretation Comments Segs-Bands # (test code = Segs-Bands #) 2.3 1.5-8.1 [facility] HospitalVodmdelYPVCAYFVIF3844-66-50 09:20:00 Test Item Value Reference Range Interpretation Comments Eosinophils (test code = 9.5 See_Comment [A utomated message] The Eosinophils) system which ge nerated this result tra nsmitted reference range : <=4.0. The reference r leo was not used to int erpret this result as normal/abnormal . [facility] HospitalBksywkeQGBKHBYZXZ6139-67-71 09:20:00 Test Item Value Reference Range Interpretation Comments Monocytes (test code = Monocytes) 9.0 2.0-12.0 [facility] HospitalXzcagblJIMIZLOZYG9723-95-95 09:20:00 Test Item Value Reference Range Interpretation Comments Lymphocytes (test code = Lymphocytes) 38.9 20.0-40.0 [facility] HospitalAaxiuqzKNMJKQYTMD7314-49-62 09:20:00 Test Item Value Reference Range Interpretation Comments Segs (test code = Segs) 41.5 45.0-75.0 [facility] HospitalLgkasowBOZJNGMQIO2903-61-67 09:20:00 Test Item Value Reference Range Interpretation Comments MPV (test code = MPV) 9.7 7.4-10.4 [facility] HospitalSuzjvxwLCNBDFNLMM7807-76-92 09:20:00 Test Item Value Reference Range Interpretation Comments Platelet (test code = Platelet) 184 133-450 [facility] HospitalYejkjqhNEJFTSVPIG1523-25-98 09:20:00 Test Item Value Reference Range Interpretation Comments RDW (test code = RDW) 15.9 11.5-14.5 [facility] HospitalDfvropwMSAXMEQDDF7965-80-00 09:20:00 Test Item Value Reference Range Interpretation Comments MCV (test code = MCV) 79.3 80.0-98.0 [facility] HospitalXaytmgxJPFRQCXFAF7978-18-11 09:20:00 Test Item Value Reference Range Interpretation Comments MCHC (test code = MCHC) 33.0 32.0-36.0 [facility] HospitalRadagynYUAARVPHBD0853-06-20 09:20:00 Test Item Value Reference Range Interpretation Comments MCH (test code = MCH) 26.2 pg 27.0-31.0 [facility] HospitalHktnqamVKEFVYKOKR0149-05-60 09:20:00 Test Item Value Reference Range Interpretation Comments Hct (test code = Hct) 29.4 36.0-48.0 [facility] HospitalAovvdcqHNZFCTGEUG4812-08-28 09:20:00 Test Item Value Reference Range Interpretation Comments Hgb (test code = Hgb) 9.7 12.0-16.0 [facility] HospitalXrmkwhsEYLQQGTQTR4182-59-22 09:20:00 Test Item Value Reference Range Interpretation Comments RBC (test code = RBC) 3.70 4.20-5.40 [facility] HospitalWymzbqiCFKFXGMQXQ0021-57-02 09:20:00 Test Item Value Reference Range Interpretation Comments WBC (test code = WBC) 5.7 3.7-10.4 [facility] HospitalTsbaacuVJTLRHWDFX7261-53-98 09:20:00 Test Item Value Reference Range Interpretation Comments Basophils # (test code 0.1 See_Comment [Aut omated message] The = Basophils #) system which generated this result tra nsmitted reference range : <=0.2. The reference r leo was not used to int erpret this result as normal/abnormal . [facility] HospitalYhkffucQNTCPSBBMI7997-36-91 09:20:00 Test Item Value Reference Range Interpretation Comments Lymphocytes # (test code = Lymphocytes 2.2 1.0-5.5 #) [facility] HospitalSbruluvMECBDZNEAZ1016-25-33 09:20:00 Test Item Value Reference Range Interpretation Comments Eosinophils # (test code 0.5 See_Comment [A utomated message] The = Eosinophils #) system whic h generated this result tra nsmitted reference range : <=0.5. The reference r leo was not used to int erpret this result as normal/abnormal . [facility] HospitalMaqrllyVXSUVKKBWP0104-26-79 09:20:00 Test Item Value Reference Range Interpretation Comments Monocytes # (test code 0.5 See_Comment [Aut omated message] The = Monocytes #) system which generated this result tra nsmitted reference range : <=0.8. The reference r leo was not used to int erpret this result as normal/abnormal . [facility] HospitalIwmqqneJTZAJNOGAN3198-81-16 09:20:00 Test Item Value Reference Range Interpretation Comments Basophils (test code = 1.1 See_Comment [Aut omated message] The Basophils) system which ge nerated this result tra nsmitted reference range : <=1.0. The reference r leo was not used to int erpret this result as normal/abnormal . [facility] HospitalCflcanuSVCBUFFMIG0987-99-08 09:20:00 Test Item Value Reference Range Interpretation Comments Segs-Bands # (test code = Segs-Bands #) 2.3 1.5-8.1 [facility] HospitalCbsphsfKEEKXMZVCS8169-80-81 09:20:00 Test Item Value Reference Range Interpretation Comments Eosinophils (test code = 9.5 See_Comment [A utomated message] The Eosinophils) system which ge nerated this result tra nsmitted reference range : <=4.0. The reference r leo was not used to int erpret this result as normal/abnormal . [facility] HospitalMkpkgwyEXZBVYWAHF1874-94-91 09:20:00 Test Item Value Reference Range Interpretation Comments Monocytes (test code = Monocytes) 9.0 2.0-12.0 [facility] HospitalPwkchuzROMJATYYBO6797-43-23 09:20:00 Test Item Value Reference Range Interpretation Comments Lymphocytes (test code = Lymphocytes) 38.9 20.0-40.0 [place] 563206-12-24 09:20:00 Test Item Value Reference Range Interpretation Comments Segs (test code = Segs) 41.5 45.0-75.0 [facility]2016-12-24 06:34:00 Test Item Value Reference Range Interpretation Comments Magnesium Lvl (test code = Magnesium 1.7 1.8-2.4 Lvl) [facility]2016-12-24 06:34:00 Test Item Value Reference Range Interpretation Comments Phosphorus (test code = Phosphorus) 4.2 2.5-4.5 [facility]OthktgnUCVPCMYXKZCP1102-63-10 06:34:00 Test Item Value Reference Range Interpretation Comments AGAP (test code = AGAP) 14.3 10.0-20.0 [facility] HospitalAqfjkzhCBQOPNVTQOZI0335-15-29 06:34:00 Test Item Value Reference Range Interpretation Comments eGFR (test code = eGFR) 41 [facility] HospitalLphquxtSTVOXZJSOSXQ7420-40-45 06:34:00 Test Item Value Reference Range Interpretation Comments Chloride Lvl (test code = Chloride Lvl) 103 95-109 [facility] HospitalQgkywbxYDHRHNUEOFMN8805-40-15 06:34:00 Test Item Value Reference Range Interpretation Comments Calcium Lvl (test code = Calcium Lvl) 8.5 8.5-10.5 [facility] HospitalBcodalhXXHSOAKCAMMC9634-23-98 06:34:00 Test Item Value Reference Range Interpretation Comments CO2 (test code = CO2) 32 24-32 [facility] HospitalDmyvuafFFTBCYDMDIQB0903-21-98 06:34:00 Test Item Value Reference Range Interpretation Comments Glucose Lvl (test code = Glucose Lvl) 173 70-99 [facility] HospitalJxpompuEHWCUYZTRYUD7754-85-76 06:34:00 Test Item Value Reference Range Interpretation Comments BUN (test code = BUN) 37 7-22 [facility] HospitalWlvumxzYOCKQRCEVAJV6197-24-08 06:34:00 Test Item Value Reference Range Interpretation Comments Creatinine Lvl (test code = Creatinine 1.63 0.50-1.40 Lvl) [facility] HospitalCjsrgirAWRLIAGRHWTQ4721-35-13 06:34:00 Test Item Value Reference Range Interpretation Comments Potassium Lvl (test code = Potassium 4.3 3.5-5.1 Lvl) [facility] HospitalTsqwfjgKZAKMTGMOYVD5634-84-98 06:34:00 Test Item Value Reference Range Interpretation Comments Sodium Lvl (test code = Sodium Lvl) 145 135-145 [facility] YIAFC3038-62-37 06:34:00 Test Item Value Reference Range Interpretation Comments Magnesium Lvl (test code = Magnesium 1.7 1.8-2.4 Lvl) [facility]2016-12-24 06:34:00 Test Item Value Reference Range Interpretation Comments Phosphorus (test code = Phosphorus) 4.2 2.5-4.5 [facility] HospitalGhhicmcLGDGTFQELISR3664-05-17 06:34:00 Test Item Value Reference Range Interpretation Comments AGAP (test code = AGAP) 14.3 10.0-20.0 [facility] HospitalUfwdhcwMGQBJLAQIBOU6793-75-23 06:34:00 Test Item Value Reference Range Interpretation Comments eGFR (test code = eGFR) 41 [facility] HospitalVpenzbgSJBEUUKWTNFH8667-85-84 06:34:00 Test Item Value Reference Range Interpretation Comments Chloride Lvl (test code = Chloride Lvl) 103 95-109 [facility] HospitalNkokyvuFYDOUOWJSLDN7826-35-81 06:34:00 Test Item Value Reference Range Interpretation Comments Calcium Lvl (test code = Calcium Lvl) 8.5 8.5-10.5 [facility] HospitalJrhxdynVFHZAHXITWJZ6481-07-71 06:34:00 Test Item Value Reference Range Interpretation Comments CO2 (test code = CO2) 32 24-32 [facility] HospitalXpupkkyISMIODBTSGUH8172-81-60 06:34:00 Test Item Value Reference Range Interpretation Comments Glucose Lvl (test code = Glucose Lvl) 173 70-99 [facility] HospitalBdkovowXDNYROYWCDVM9101-59-91 06:34:00 Test Item Value Reference Range Interpretation Comments BUN (test code = BUN) 37 7-22 [facility] HospitalIyqxuvbDYXJAAQPZGTL2749-79-03 06:34:00 Test Item Value Reference Range Interpretation Comments Creatinine Lvl (test code = Creatinine 1.63 0.50-1.40 Lvl) [facility] HospitalQqfivykJQZPGNCOLMKZ1732-27-33 06:34:00 Test Item Value Reference Range Interpretation Comments Potassium Lvl (test code = Potassium 4.3 3.5-5.1 Lvl) [facility] HospitalWfdrbipKIXEPQUCSRTN9787-34-98 06:34:00 Test Item Value Reference Range Interpretation Comments Sodium Lvl (test code = Sodium Lvl) 145 135-145 [facility]2016-12-24 06:34:00 Test Item Value Reference Range Interpretation Comments Magnesium Lvl (test code = Magnesium 1.7 1.8-2.4 Lvl) [facility]2016-12-24 06:34:00 Test Item Value Reference Range Interpretation Comments Phosphorus (test code = Phosphorus) 4.2 2.5-4.5 [facility] HospitalUajybvrSEMCBOGMKNQE0654-46-90 06:34:00 Test Item Value Reference Range Interpretation Comments AGAP (test code = AGAP) 14.3 10.0-20.0 [facility] HospitalHamldrxFFBEWQQAHJTN7028-88-00 06:34:00 Test Item Value Reference Range Interpretation Comments eGFR (test code = eGFR) 41 [facility] HospitalDsskioxKWMWWHNFTJGJ0548-21-21 06:34:00 Test Item Value Reference Range Interpretation Comments Chloride Lvl (test code = Chloride Lvl) 103 95-109 [facility] HospitalMduqjhmQMCSQFRLUTDH8991-15-36 06:34:00 Test Item Value Reference Range Interpretation Comments Calcium Lvl (test code = Calcium Lvl) 8.5 8.5-10.5 [facility] HospitalHaykornKLIIFXTASZTS4853-74-61 06:34:00 Test Item Value Reference Range Interpretation Comments CO2 (test code = CO2) 32 24-32 [facility] HospitalOghudufGKMDLDIWSODH6337-25-11 06:34:00 Test Item Value Reference Range Interpretation Comments Glucose Lvl (test code = Glucose Lvl) 173 70-99 [facility] HospitalVknzfhpLPDAKBVSZRFU3478-02-85 06:34:00 Test Item Value Reference Range Interpretation Comments BUN (test code = BUN) 37 7-22 [facility] HospitalNlfalttLPQXRGQUCHUI5357-14-72 06:34:00 Test Item Value Reference Range Interpretation Comments Creatinine Lvl (test code = Creatinine 1.63 0.50-1.40 Lvl) [facility] HospitalCjtwcefTTCSAIUWIHLR0812-31-86 06:34:00 Test Item Value Reference Range Interpretation Comments Potassium Lvl (test code = Potassium 4.3 3.5-5.1 Lvl) [facility] HospitalKxqzxatJLCNXVOWQLVW6409-37-27 06:34:00 Test Item Value Reference Range Interpretation Comments Sodium Lvl (test code = Sodium Lvl) 145 135-145 [facility]2016-12-24 06:34:00 Test Item Value Reference Range Interpretation Comments Magnesium Lvl (test code = Magnesium 1.7 1.8-2.4 Lvl) [facility]2016-12-24 06:34:00 Test Item Value Reference Range Interpretation Comments Phosphorus (test code = Phosphorus) 4.2 2.5-4.5 [facility] HospitalPbagdmnHTTOTIALNPUO6959-76-17 06:34:00 Test Item Value Reference Range Interpretation Comments AGAP (test code = AGAP) 14.3 10.0-20.0 [facility] HospitalCeccrnbIWIBHRVTHUGW8271-42-16 06:34:00 Test Item Value Reference Range Interpretation Comments eGFR (test code = eGFR) 41 [facility] HospitalUykfemaZQUXQGNHNHLH1581-21-95 06:34:00 Test Item Value Reference Range Interpretation Comments Chloride Lvl (test code = Chloride Lvl) 103 95-109 [facility] HospitalHhxwattQCFGYNJYMZQV4758-17-60 06:34:00 Test Item Value Reference Range Interpretation Comments Calcium Lvl (test code = Calcium Lvl) 8.5 8.5-10.5 [facility] HospitalMnelvxbVRIDPAHJKFXQ9822-52-33 06:34:00 Test Item Value Reference Range Interpretation Comments CO2 (test code = CO2) 32 24-32 [facility] HospitalCaeqqawEBHICOEIZPRV3917-33-56 06:34:00 Test Item Value Reference Range Interpretation Comments Glucose Lvl (test code = Glucose Lvl) 173 70-99 [facility] HospitalZvpuimcCGUPSAYGFYSG2210-69-63 06:34:00 Test Item Value Reference Range Interpretation Comments BUN (test code = BUN) 37 7-22 [facility] HospitalTsnlestIANIBNHMHVFK4041-74-39 06:34:00 Test Item Value Reference Range Interpretation Comments Creatinine Lvl (test code = Creatinine 1.63 0.50-1.40 Lvl) [facility] HospitalVoflwvpOEOYEVKDPPFJ6532-77-56 06:34:00 Test Item Value Reference Range Interpretation Comments Potassium Lvl (test code = Potassium 4.3 3.5-5.1 Lvl) [facility] HospitalBrbvavbKHKBPZWKJHFT5109-20-13 06:34:00 Test Item Value Reference Range Interpretation Comments Sodium Lvl (test code = Sodium Lvl) 145 135-145 [facility] PJIOU5718-27-19 06:34:00 Test Item Value Reference Range Interpretation Comments Magnesium Lvl (test code = Magnesium 1.7 1.8-2.4 Lvl) [facility]2016-12-24 06:34:00 Test Item Value Reference Range Interpretation Comments Phosphorus (test code = Phosphorus) 4.2 2.5-4.5 [facility] HospitalGhdqddwJGRQHNZLCGJH3656-61-90 06:34:00 Test Item Value Reference Range Interpretation Comments AGAP (test code = AGAP) 14.3 10.0-20.0 [facility] HospitalSxrfbgfPPTZQSUJVROF4632-32-88 06:34:00 Test Item Value Reference Range Interpretation Comments eGFR (test code = eGFR) 41 [facility] HospitalGkgntrxPWYBMNWQRTNQ4608-74-33 06:34:00 Test Item Value Reference Range Interpretation Comments Chloride Lvl (test code = Chloride Lvl) 103 95-109 [facility] HospitalQgrhdyyLTCNDKTCRNBH4635-24-40 06:34:00 Test Item Value Reference Range Interpretation Comments Calcium Lvl (test code = Calcium Lvl) 8.5 8.5-10.5 [facility] HospitalQeqdbdnBFFQZHGBSGAM2234-62-30 06:34:00 Test Item Value Reference Range Interpretation Comments CO2 (test code = CO2) 32 24-32 [facility] HospitalJlmcwxrETZCLWIPCHAP0409-44-40 06:34:00 Test Item Value Reference Range Interpretation Comments Glucose Lvl (test code = Glucose Lvl) 173 70-99 [facility] HospitalPohcnusASYLJAWZYCPJ5305-36-35 06:34:00 Test Item Value Reference Range Interpretation Comments BUN (test code = BUN) 37 7-22 [facility] HospitalHhurwhjUDCKBKBRKCCZ4575-86-21 06:34:00 Test Item Value Reference Range Interpretation Comments Creatinine Lvl (test code = Creatinine 1.63 0.50-1.40 Lvl) [facility] HospitalBcukwkxOUSLJGRSNCVK6673-12-34 06:34:00 Test Item Value Reference Range Interpretation Comments Potassium Lvl (test code = Potassium 4.3 3.5-5.1 Lvl) [facility] HospitalNzdimjdMJCDLZOXUQLH3869-49-62 06:34:00 Test Item Value Reference Range Interpretation Comments Sodium Lvl (test code = Sodium Lvl) 145 135-145 [facility]2016-12-22 16:21:00 Test Item Value Reference Range Interpretation Comments Ammonia (test code = Ammonia) 48.0 [facility]2016-12-22 16:21:00 Test Item Value Reference Range Interpretation Comments Ammonia (test code = Ammonia) 48.0 [facility]2016-12-22 16:21:00 Test Item Value Reference Range Interpretation Comments Ammonia (test code = Ammonia) 48.0 [facility]2016-12-22 16:21:00 Test Item Value Reference Range Interpretation Comments Ammonia (test code = Ammonia) 48.0 [facility]2016-12-22 16:21:00 Test Item Value Reference Range Interpretation Comments Ammonia (test code = Ammonia) 48.0 [facility] HospitalYxhnymiZHQIIKAFCY8305-60-65 14:56:00 Test Item Value Reference Range Interpretation Comments IVETTE Interp (test code Pattern appears = IVETTE Interp) Nucleolar. [facility] HospitalElmwseeZZAODSFBGQ0383-82-58 14:56:00 Test Item Value Reference Range Interpretation Comments IVETTE Titer (test code = 1:40 *ABN*(06/11/16 IVETTE Titer) 8:56 AM) [facility] HospitalFzegxjtRKBDUMUEJJ7996-95-41 14:56:00 Test Item Value Reference Range Interpretation Comments Hep Bs Ag (test code Negative *NA*(06/11/16 = Hep Bs Ag) 8:56 AM) [facility] HospitalPccfrnaJXYPEGAHNK8306-00-38 14:56:00 Test Item Value Reference Range Interpretation Comments Hep C Ab (test code = Negative *NA*(06/11/16 Hep C Ab) 8:56 AM) [facility] HospitalOoznktlNGPDPLCPAB4429-86-11 14:56:00 Test Item Value Reference Range Interpretation Comments Hep B Core IgM (test Negative *NA*(06/11/16 code = Hep B Core 8:56 AM) IgM) [facility] HospitalPhczleoPCAIFWHDWN5254-19-82 14:56:00 Test Item Value Reference Range Interpretation Comments Hep A IgM (test code Negative *NA*(06/11/16 = Hep A IgM) 8:56 AM) [facility] HospitalZsurnlfIRMZVYKFVI1919-17-84 14:56:00 Test Item Value Reference Range Interpretation Comments HIV Ag/Ab 4th Gen Negative *NA*(06/11/16 (test code = HIV 8:56 AM) Ag/Ab 4th Gen) [facility] HospitalHhwwdzvVLDUMGEJPG3231-14-04 14:56:00 Test Item Value Reference Range Interpretation Comments IVETTE (test code = IVETTE) Positive *ABN*(06/11/16 8:56 AM) [facility] HospitalWazbhwmUHRWVNHVYR4238-72-96 14:56:00 Test Item Value Reference Range Interpretation Comments IVETTE Interp (test code Pattern appears = IVETTE Interp) Nucleolar. [facility] HospitalRvatttuGVUAHGTOSA7575-68-73 14:56:00 Test Item Value Reference Range Interpretation Comments IVETTE Titer (test code = 1:40 *ABN*(06/11/16 IVETTE Titer) 8:56 AM) [facility] HospitalQcbsrtfFDXFQSUWQT0966-59-78 14:56:00 Test Item Value Reference Range Interpretation Comments Hep Bs Ag (test code Negative *NA*(06/11/16 = Hep Bs Ag) 8:56 AM) [facility] HospitalZpkahooBAFVYIROGB0757-10-13 14:56:00 Test Item Value Reference Range Interpretation Comments Hep C Ab (test code = Negative *NA*(06/11/16 Hep C Ab) 8:56 AM) [facility] HospitalOjplpbkTUDIMJVFQA5985-96-56 14:56:00 Test Item Value Reference Range Interpretation Comments Hep B Core IgM (test Negative *NA*(06/11/16 code = Hep B Core 8:56 AM) IgM) [facility] HospitalEazupxvLLEKVGJVXY8951-04-88 14:56:00 Test Item Value Reference Range Interpretation Comments Hep A IgM (test code Negative *NA*(06/11/16 = Hep A IgM) 8:56 AM) [facility] HospitalIzevfyuVLDOBVVHOV4023-50-20 14:56:00 Test Item Value Reference Range Interpretation Comments HIV Ag/Ab 4th Gen Negative *NA*(06/11/16 (test code = HIV 8:56 AM) Ag/Ab 4th Gen) [facility] HospitalOpdgsmkWLZFLMINBW6358-32-95 14:56:00 Test Item Value Reference Range Interpretation Comments IVETTE (test code = IVETTE) Positive *ABN*(06/11/16 8:56 AM) [facility] HospitalRjzmccyILIRPEDGYA6672-33-53 14:56:00 Test Item Value Reference Range Interpretation Comments IVETTE Interp (test code Pattern appears = IVETTE Interp) Nucleolar. [facility] HospitalXyhieczUPNSVRTCIO9062-91-44 14:56:00 Test Item Value Reference Range Interpretation Comments IVETTE Titer (test code = 1:40 *ABN*(06/11/16 IVETTE Titer) 8:56 AM) [facility] HospitalNixwwdlXDZAOSOMTJ7665-46-68 14:56:00 Test Item Value Reference Range Interpretation Comments Hep Bs Ag (test code Negative *NA*(06/11/16 = Hep Bs Ag) 8:56 AM) [facility] HospitalKwylfeyRZKYWFJBQC1950-25-81 14:56:00 Test Item Value Reference Range Interpretation Comments Hep C Ab (test code = Negative *NA*(06/11/16 Hep C Ab) 8:56 AM) [facility] HospitalCituxsgGGCOHZSDYM8957-72-94 14:56:00 Test Item Value Reference Range Interpretation Comments Hep B Core IgM (test Negative *NA*(06/11/16 code = Hep B Core 8:56 AM) IgM) [facility] HospitalMocowiuIAQPTESKHQ0536-99-15 14:56:00 Test Item Value Reference Range Interpretation Comments Hep A IgM (test code Negative *NA*(06/11/16 = Hep A IgM) 8:56 AM) [facility] HospitalLnkzozzWZQRIKOWYY9253-61-88 14:56:00 Test Item Value Reference Range Interpretation Comments HIV Ag/Ab 4th Gen Negative *NA*(06/11/16 (test code = HIV 8:56 AM) Ag/Ab 4th Gen) [facility] HospitalPeyvgdrIXIGYIKIHT7449-61-46 14:56:00 Test Item Value Reference Range Interpretation Comments IVETTE (test code = IVETTE) Positive *ABN*(06/11/16 8:56 AM) [facility] HospitalYzclqupZQQIBJPEID9878-72-32 14:56:00 Test Item Value Reference Range Interpretation Comments IVETTE Interp (test code Pattern appears = IVETTE Interp) Nucleolar. [facility] HospitalYqiwmojADVGNEOTMD5300-28-77 14:56:00 Test Item Value Reference Range Interpretation Comments IVETTE Titer (test code = 1:40 *ABN*(06/11/16 IVETTE Titer) 8:56 AM) [facility] HospitalFsyzssyXHINIWZDYY8321-65-14 14:56:00 Test Item Value Reference Range Interpretation Comments Hep Bs Ag (test code Negative *NA*(06/11/16 = Hep Bs Ag) 8:56 AM) [facility] HospitalFkkqbmmJHOURTEIAW6844-07-58 14:56:00 Test Item Value Reference Range Interpretation Comments Hep C Ab (test code = Negative *NA*(06/11/16 Hep C Ab) 8:56 AM) [facility] HospitalCqgcxwrAYBICFMXXD0701-08-51 14:56:00 Test Item Value Reference Range Interpretation Comments Hep B Core IgM (test Negative *NA*(06/11/16 code = Hep B Core 8:56 AM) IgM) [facility] HospitalRzieefcOPDRDCZENE4573-11-04 14:56:00 Test Item Value Reference Range Interpretation Comments Hep A IgM (test code Negative *NA*(06/11/16 = Hep A IgM) 8:56 AM) [facility] HospitalJopoucwJZHFEKKVJC2973-79-41 14:56:00 Test Item Value Reference Range Interpretation Comments HIV Ag/Ab 4th Gen Negative *NA*(06/11/16 (test code = HIV 8:56 AM) Ag/Ab 4th Gen) [facility] HospitalKuhjuhqCFIHPATYAW0596-66-34 14:56:00 Test Item Value Reference Range Interpretation Comments IVETTE (test code = IVETTE) Positive *ABN*(06/11/16 8:56 AM) [facility] HospitalEzrvnlaQNPODHCBSW4800-66-60 14:56:00 Test Item Value Reference Range Interpretation Comments IVETTE Interp (test code Pattern appears = IVETTE Interp) Nucleolar. [facility] HospitalEhdssmhVZPVWPEVFJ5810-82-95 14:56:00 Test Item Value Reference Range Interpretation Comments IVETTE Titer (test code = 1:40 *ABN*(06/11/16 IVETTE Titer) 8:56 AM) [facility] HospitalEendlloXBORECNMCH1249-12-95 14:56:00 Test Item Value Reference Range Interpretation Comments Hep Bs Ag (test code Negative *NA*(06/11/16 = Hep Bs Ag) 8:56 AM) [facility] HospitalWbjepwbRBDZGJCDTQ2330-60-49 14:56:00 Test Item Value Reference Range Interpretation Comments Hep C Ab (test code = Negative *NA*(06/11/16 Hep C Ab) 8:56 AM) [facility] HospitalOqxvnabWJFSMHDHEI2382-21-95 14:56:00 Test Item Value Reference Range Interpretation Comments Hep B Core IgM (test Negative *NA*(06/11/16 code = Hep B Core 8:56 AM) IgM) [facility] HospitalDudnkdgGUYQHQDEUI5905-39-65 14:56:00 Test Item Value Reference Range Interpretation Comments Hep A IgM (test code Negative *NA*(06/11/16 = Hep A IgM) 8:56 AM) [facility] HospitalHbkhpmjDDQVLVAFZL9687-38-11 14:56:00 Test Item Value Reference Range Interpretation Comments HIV Ag/Ab 4th Gen Negative *NA*(06/11/16 (test code = HIV 8:56 AM) Ag/Ab 4th Gen) [facility] HospitalIqgoactRPMKAJAFOR7589-01-78 14:56:00 Test Item Value Reference Range Interpretation Comments IVETTE (test code = IVETTE) Positive *ABN*(06/11/16 8:56 AM) [facility]2016-12-22 10:42:00 Test Item Value Reference Range Interpretation Comments Bili Total (test code = Bili Total) 0.1 0.2-1.3 [facility]2016-12-22 10:42:00 Test Item Value Reference Range Interpretation Comments Total Protein (test code = Total 5.2 6.4-8.4 Protein) [facility]2016-12-22 10:42:00 Test Item Value Reference Range Interpretation Comments Albumin Lvl (test code = Albumin Lvl) 1.6 3.5-5.0 [facility]2016-12-22 10:42:00 Test Item Value Reference Range Interpretation Comments B/C Ratio (test code = B/C Ratio) 20 6-25 [facility]2016-12-22 10:42:00 Test Item Value Reference Range Interpretation Comments Globulin (test code = Globulin) 3.6 2.7-4.2 [facility]2016-12-22 10:42:00 Test Item Value Reference Range Interpretation Comments A/G Ratio (test code = A/G Ratio) 0.4 0.7-1.6 [facility]2016-12-22 10:42:00 Test Item Value Reference Range Interpretation Comments Alk Phos (test code = Alk Phos) 74 39-136 [facility]2016-12-22 10:42:00 Test Item Value Reference Range Interpretation Comments ALT (test code = ALT) 14 See_Comment [Auto mated message] The system which ge nerated this result transmit rohit reference range : <=65. The reference range was not used to interpr et this result as reji l/abnormal. [facility]2016-12-22 10:42:00 Test Item Value Reference Range Interpretation Comments AST (test code = AST) 13 See_Comment [Auto mated message] The system which ge nerated this result transmit rohit reference range : <=37. The reference range was not used to interpr et this result as reji l/abnormal. [facility] HospitalPupjzloKQSHWDRFQH9404-97-93 10:42:00 Test Item Value Reference Range Interpretation Comments INR (test code = INR) 1.06 0.85-1.17 [facility]IemmusgNTYIRMRHBC9565-60-42 10:42:00 Test Item Value Reference Range Interpretation Comments PT (test code = PT) 14.0 s 12.0-14.7 [facility] HospitalOieluigUGOVFJDFUZ1935-39-04 10:42:00 Test Item Value Reference Range Interpretation Comments PTT (test code = PTT) 36.4 s 22.9-35.8 [facility] [id number] 10:42:00 Test Item Value Reference Range Interpretation Comments Hgb A1C (test code = Hgb A1C) 10.5 [facility]2016-12-22 10:42:00 Test Item Value Reference Range Interpretation Comments Bili Total (test code = Bili Total) 0.1 0.2-1.3 [facility]2016-12-22 10:42:00 Test Item Value Reference Range Interpretation Comments Total Protein (test code = Total 5.2 6.4-8.4 Protein) [facility]2016-12-22 10:42:00 Test Item Value Reference Range Interpretation Comments Albumin Lvl (test code = Albumin Lvl) 1.6 3.5-5.0 [facility]2016-12-22 10:42:00 Test Item Value Reference Range Interpretation Comments B/C Ratio (test code = B/C Ratio) 20 6-25 [facility]2016-12-22 10:42:00 Test Item Value Reference Range Interpretation Comments Globulin (test code = Globulin) 3.6 2.7-4.2 [facility]2016-12-22 10:42:00 Test Item Value Reference Range Interpretation Comments A/G Ratio (test code = A/G Ratio) 0.4 0.7-1.6 [facility]2016-12-22 10:42:00 Test Item Value Reference Range Interpretation Comments Alk Phos (test code = Alk Phos) 74 39-136 [facility]2016-12-22 10:42:00 Test Item Value Reference Range Interpretation Comments ALT (test code = ALT) 14 See_Comment [Auto mated message] The system which ge nerated this result transmit rohit reference range : <=65. The reference range was not used to interpr et this result as reji l/abnormal. [facility] CenterCir[facility] [id number] 10:42:00 Test Item Value Reference Range Interpretation Comments AST (test code = AST) 13 See_Comment [Auto mated message] The system which ge nerated this result transmit rohit reference range : <=37. The reference range was not used to interpr et this result as reji l/abnormal. [facility] HospitalBorabbgTCQOPLUTQN9469-53-37 10:42:00 Test Item Value Reference Range Interpretation Comments INR (test code = INR) 1.06 0.85-1.17 [facility] HospitalKoywirdQRBXPHDLUF7535-89-46 10:42:00 Test Item Value Reference Range Interpretation Comments PT (test code = PT) 14.0 s 12.0-14.7 [facility] HospitalWdslcilFKDVPIPNSJ6849-90-31 10:42:00 Test Item Value Reference Range Interpretation Comments PTT (test code = PTT) 36.4 s 22.9-35.8 [facility] [id number] 10:42:00 Test Item Value Reference Range Interpretation Comments Hgb A1C (test code = Hgb A1C) 10.5 [facility]2016-12-22 10:42:00 Test Item Value Reference Range Interpretation Comments Bili Total (test code = Bili Total) 0.1 0.2-1.3 [facility]2016-12-22 10:42:00 Test Item Value Reference Range Interpretation Comments Total Protein (test code = Total 5.2 6.4-8.4 Protein) [facility]2016-12-22 10:42:00 Test Item Value Reference Range Interpretation Comments Albumin Lvl (test code = Albumin Lvl) 1.6 3.5-5.0 [facility]2016-12-22 10:42:00 Test Item Value Reference Range Interpretation Comments B/C Ratio (test code = B/C Ratio) 20 6-25 [facility]2016-12-22 10:42:00 Test Item Value Reference Range Interpretation Comments Globulin (test code = Globulin) 3.6 2.7-4.2 [facility]2016-12-22 10:42:00 Test Item Value Reference Range Interpretation Comments A/G Ratio (test code = A/G Ratio) 0.4 0.7-1.6 [place] 141206-12-22 10:42:00 Test Item Value Reference Range Interpretation Comments Alk Phos (test code = Alk Phos) 74 39-136 [facility]2016-12-22 10:42:00 Test Item Value Reference Range Interpretation Comments ALT (test code = ALT) 14 See_Comment [Auto mated message] The system which ge nerated this result transmit rohit reference range : <=65. The reference range was not used to interpr et this result as reji l/abnormal. [facility]2016-12-22 10:42:00 Test Item Value Reference Range Interpretation Comments AST (test code = AST) 13 See_Comment [Auto mated message] The system which ge nerated this result transmit rohit reference range : <=37. The reference range was not used to interpr et this result as reji l/abnormal. [facility] HospitalMovwhbeAKTLYPPORK9006-38-37 10:42:00 Test Item Value Reference Range Interpretation Comments INR (test code = INR) 1.06 0.85-1.17 [facility] HospitalIumyqfmSEWGYJDRGJ5202-55-38 10:42:00 Test Item Value Reference Range Interpretation Comments PT (test code = PT) 14.0 s 12.0-14.7 [facility] HospitalGshfqlkZQIGZXIAGI9401-76-70 10:42:00 Test Item Value Reference Range Interpretation Comments PTT (test code = PTT) 36.4 s 22.9-35.8 [facility] [id number] 10:42:00 Test Item Value Reference Range Interpretation Comments Hgb A1C (test code = Hgb A1C) 10.5 [facility]2016-12-22 10:42:00 Test Item Value Reference Range Interpretation Comments Bili Total (test code = Bili Total) 0.1 0.2-1.3 [facility]2016-12-22 10:42:00 Test Item Value Reference Range Interpretation Comments Total Protein (test code = Total 5.2 6.4-8.4 Protein) [facility]2016-12-22 10:42:00 Test Item Value Reference Range Interpretation Comments Albumin Lvl (test code = Albumin Lvl) 1.6 3.5-5.0 [facility]2016-12-22 10:42:00 Test Item Value Reference Range Interpretation Comments B/C Ratio (test code = B/C Ratio) 20 6-25 [facility]2016-12-22 10:42:00 Test Item Value Reference Range Interpretation Comments Globulin (test code = Globulin) 3.6 2.7-4.2 [facility]2016-12-22 10:42:00 Test Item Value Reference Range Interpretation Comments A/G Ratio (test code = A/G Ratio) 0.4 0.7-1.6 [facility]2016-12-22 10:42:00 Test Item Value Reference Range Interpretation Comments Alk Phos (test code = Alk Phos) 74 39-136 [facility]2016-12-22 10:42:00 Test Item Value Reference Range Interpretation Comments ALT (test code = ALT) 14 See_Comment [Auto mated message] The system which ge nerated this result transmit rohit reference range : <=65. The reference range was not used to interpr et this result as reji l/abnormal. [facility]2016-12-22 10:42:00 Test Item Value Reference Range Interpretation Comments AST (test code = AST) 13 See_Comment [Auto mated message] The system which ge nerated this result transmit rohit reference range : <=37. The reference range was not used to interpr et this result as reji l/abnormal. [facility] HospitalKljbicgOMWNYGCLYL9825-96-17 10:42:00 Test Item Value Reference Range Interpretation Comments INR (test code = INR) 1.06 0.85-1.17 [facility] HospitalUujlhalWEZSIJSSPO4921-62-57 10:42:00 Test Item Value Reference Range Interpretation Comments PT (test code = PT) 14.0 s 12.0-14.7 [facility] HospitalMapvvpwNYGBCFTJBV6613-94-54 10:42:00 Test Item Value Reference Range Interpretation Comments PTT (test code = PTT) 36.4 s 22.9-35.8 [facility] [id number] 10:42:00 Test Item Value Reference Range Interpretation Comments Hgb A1C (test code = Hgb A1C) 10.5 [facility]2016-12-22 10:42:00 Test Item Value Reference Range Interpretation Comments Bili Total (test code = Bili Total) 0.1 0.2-1.[address]12-22 10:42:00 Test Item Value Reference Range Interpretation Comments Total Protein (test code = Total 5.2 6.4-8.4 Protein) [place] 141206-12-22 10:42:00 Test Item Value Reference Range Interpretation Comments Albumin Lvl (test code = Albumin Lvl) 1.6 3.5-5.0 [place] 141206-12-22 10:42:00 Test Item Value Reference Range Interpretation Comments B/C Ratio (test code = B/C Ratio) 20 6-25 [place] [address]-12-22 10:42:00 Test Item Value Reference Range Interpretation Comments Globulin (test code = Globulin) 3.6 2.7-4.2 [place] 141206-12-22 10:42:00 Test Item Value Reference Range Interpretation Comments A/G Ratio (test code = A/G Ratio) 0.4 0.7-1.6 [place] 141206-12-22 10:42:00 Test Item Value Reference Range Interpretation Comments Alk Phos (test code = Alk Phos) 74 39-136 [facility]2016-12-22 10:42:00 Test Item Value Reference Range Interpretation Comments ALT (test code = ALT) 14 See_Comment [Auto mated message] The system which ge nerated this result transmit rohit reference range : <=65. The reference range was not used to interpr et this result as reji l/abnormal. [facility]2016-12-22 10:42:00 Test Item Value Reference Range Interpretation Comments AST (test code = AST) 13 See_Comment [Auto mated message] The system which ge nerated this result transmit rohit reference range : <=37. The reference range was not used to interpr et this result as reji l/abnormal. [place] 563206-12-22 10:42:00 Test Item Value Reference Range Interpretation Comments INR (test code = INR) 1.06 0.85-1.17 [place] 563206-12-22 10:42:00 Test Item Value Reference Range Interpretation Comments PT (test code = PT) 14.0 s 12.0-14.7 [place] 563206-12-22 10:42:00 Test Item Value Reference Range Interpretation Comments PTT (test code = PTT) 36.4 s 22.9-35.8 [facility] CenterClipMineFORMERLY [facility]IAL MYDJXIDOJ2046-10-08 10:42:00 Test Item Value Reference Range Interpretation Comments Hgb A1C (test code = Hgb A1C) 10.5 [facility] [employer]CARMir VrachaAC [id number] 02:08:00 Test Item Value Reference Range Interpretation Comments CK MB Index (test 1.8 See_Comment [Automate d message] The code = CK MB Index) system w [facility] generated this result transmit rohit reference range : <=2.5. The reference range was not used to interpr et this result as reji l/abnormal. [facility] [employer] [id number] 02:08:00 Test Item Value Reference Range Interpretation Comments CK MB (test code = CK MB) 2.9 0.5-3.6 [facility] [employer]2016-12-22 02:08:00 Test Item Value Reference Range Interpretation Comments Troponin-T (test code 0.061 See_Comment [Auto mated message] The = Troponin-T) system which g enerated this result transmit rohit reference range : <=0.100. The reference r leo was not used to interpr et this result as reji l/abnormal. [facility] [employer] [id number] 02:08:00 Test Item Value Reference Range Interpretation Comments Total CK (test code = Total CK) 159 12-191 [facility] [employer] [id number] 02:08:00 Test Item Value Reference Range Interpretation Comments Troponin-I (test code no gt See_Comment [Auto mated message] The = Troponin-I) system which g enerated this result transmit rohit reference range : <=0.40. The reference r leo was not used to interpr et this result as reji l/abnormal. [employer] [id number] 02:08:00 Test Item Value Reference Range Interpretation Comments Bili Total (test code = Bili Total) 0.2 0.2-1.3 [facility] [employer] [id number] 02:08:00 Test Item Value Reference Range Interpretation Comments Bili Direct (test code 0.1 See_Comment [Aut omated message] The = Bili Direct) system which generated this result tra nsmitted reference range : <=0.3. The reference r leo was not used to int erpret this result as reji l/abnormal. [facility] [employer] [id number] 02:08:00 Test Item Value Reference Range Interpretation Comments Bili Indirect (test 0.1 See_Comment [Automa rohit message] The code = Bili Indirect) system which generated this result tra nsmitted reference range : <=1.0. The reference r leo was not used to int erpret this result as normal/abnormal . [facility] [employer] [id number] 02:08:00 Test Item Value Reference Range Interpretation Comments Total Protein (test code = Total 5.7 6.4-8.4 Protein) [facility] [employer] [id number] 02:08:00 Test Item Value Reference Range Interpretation Comments A/G Ratio (test code = A/G Ratio) 0.5 0.7-1.6 [facility] [employer] [id number] 02:08:00 Test Item Value Reference Range Interpretation Comments Albumin Lvl (test code = Albumin Lvl) 1.8 3.5-5.0 [facility] [employer] [id number] 02:08:00 Test Item Value Reference Range Interpretation Comments Globulin (test code = Globulin) 3.9 2.7-4.2 [facility] [employer] [id number] 02:08:00 Test Item Value Reference Range Interpretation Comments Alk Phos (test code = Alk Phos) 99 39-136 [facility] [employer] [id number] 02:08:00 Test Item Value Reference Range Interpretation Comments AST (test code = AST) 21 See_Comment [Auto mated message] The system which ge nerated this result transmit rohit reference range : <=37. The reference range was not used to interpr et this result as reji l/abnormal. [facility] [employer] [id number] 02:08:00 Test Item Value Reference Range Interpretation Comments ALT (test code = ALT) 17 See_Comment [Auto mated message] The system which ge nerated this result transmit rohit reference range : <=65. The reference range was not used to interpr et this result as reji l/abnormal. [facility] [id number] 02:08:00 Test Item Value Reference Range Interpretation Comments UDS Note (test code = See Note *NA*(06/10/16 UDS Note) 8:08 PM) [facility] [id number] 02:08:00 Test Item Value Reference Range Interpretation Comments U Propoxyph Scr (test Negative *NA*(06/10/16 code = U Propoxyph Scr) 8:08 PM) [facility] [id number] 02:08:00 Test Item Value Reference Range Interpretation Comments U Opiate Scr (test Negative *NA*(06/10/16 code = U Opiate Scr) 8:08 PM) [facility] [id number] 02:08:00 Test Item Value Reference Range Interpretation Comments U Methadone Scr (test Negative *NA*(06/10/16 code = U Methadone Scr) 8:08 PM) [facility] [id number] 02:08:00 Test Item Value Reference Range Interpretation Comments U Phencyc Scr (test Negative *NA*(06/10/16 code = U Phencyc Scr) 8:08 PM) [facility] [id number] 02:08:00 Test Item Value Reference Range Interpretation Comments U Cannab Scr (test Negative *NA*(06/10/16 code = U Cannab Scr) 8:08 PM) [facility] [id number] 02:08:00 Test Item Value Reference Range Interpretation Comments U Amph Scr (test code Negative *NA*(06/10/16 = U Amph Scr) 8:08 PM) [facility] [id number] 02:08:00 Test Item Value Reference Range Interpretation Comments U Kelly Scr (test code Negative *NA*(06/10/16 = U Kelly Scr) 8:08 PM) [facility] [id number] 02:08:00 Test Item Value Reference Range Interpretation Comments U Benzodia Scr (test Negative *NA*(06/10/16 code = U Benzodia Scr) 8:08 PM) [facility] [id number] 02:08:00 Test Item Value Reference Range Interpretation Comments U Cocaine Scr (test Negative *NA*(06/10/16 code = U Cocaine Scr) 8:08 PM) [facility] [id number] 02:08:00 Test Item Value Reference Range Interpretation Comments LDL (Calculated) (test code = LDL 75 (Calculated)) [facility] CenterIzqgwgySQZSFF7807-04-05 02:08:00 Test Item Value Reference Range Interpretation Comments VLDL (test code = VLDL) 27 [facility] [id number] 02:08:00 Test Item Value Reference Range Interpretation Comments Chol (test code = Chol) 133 [id number] 02:08:00 Test Item Value Reference Range Interpretation Comments Trig (test code = Trig) 133 [facility]aleIivycqiCCUSGJ0226-51-08 02:08:00 Test Item Value Reference Range Interpretation Comments CHD Risk (test code = CHD Risk) 4.29 3.90-5.80 [id number] 02:08:00 Test Item Value Reference Range Interpretation Comments HDL (test code = HDL) 31 [facility] AND [id number] 02:08:00 Test Item Value Reference Range Interpretation Comments UA Urobilinogen (test code = UA <=1.0 mg/dL 0.1-1.0 Urobilinogen) [facility] AND [id number] 02:08:00 Test Item Value Reference Range Interpretation Comments UA Ketones (test code = UA Negative mg/dL Ketones) [facility] AND [id number] 02:08:00 Test Item Value Reference Range Interpretation Comments UA Glucose (test code = UA Glucose) 300 mg/dL [facility] AND [id number] 02:08:00 Test Item Value Reference Range Interpretation Comments UA Protein (test code = UA >=300 mg/dL Protein) [facility] AND [id number] 02:08:00 Test Item Value Reference Range Interpretation Comments UA pH (test code = UA pH) 6.0 5.0-8.0 [facility] AND [id number] 02:08:00 Test Item Value Reference Range Interpretation Comments UA Nitrite (test code Negative (06/10/16 8:08 = UA Nitrite) PM) [facility] AND [id number] 02:08:00 Test Item Value Reference Range Interpretation Comments UA Blood (test code = Trace *ABN*(06/10/16 UA Blood) 8:08 PM) [facility] AND [id number] 02:08:00 Test Item Value Reference Range Interpretation Comments UA Bili (test code = Negative *NA*(06/10/16 UA Bili) 8:08 PM) [facility] [id number] 02:08:00 Test Item Value Reference Range Interpretation Comments UA Mucus (test code = UA Mucus) Few /LPF [facility] [id number] 02:08:00 Test Item Value Reference Range Interpretation Comments UA RBC (test code = 4 See_Comment [Automa rohit message] The UA RBC) system which ge nerated this result transmit rohit reference range : <=2. The reference range was not used to interpr et this result as reji l/abnormal. [facility] [id number] 02:08:00 Test Item Value Reference Range Interpretation Comments UA Sq Epi (test code = UA Sq Epi) Few /LPF [facility] [id number] 02:08:00 Test Item Value Reference Range Interpretation Comments UA WBC (test code = 5 See_Comment [Automa rohit message] The UA WBC) system which ge nerated this result transmit orhit reference range : <=5. The reference range was not used to interpr et this result as reji l/abnormal. [facility] [id number] 02:08:00 Test Item Value Reference Range Interpretation Comments UA Leuk Est (test code Small *ABN*(06/10/16 = UA Leuk Est) 8:08 PM) [facility] AND [id number] 02:08:00 Test Item Value Reference Range Interpretation Comments UA Hyal Cast (test 1 See_Comment [Automat ed message] The code = UA Hyal Cast) system which generated this result transmit rohit reference range : <=2. The reference range was not used to interpr et this result as reji l/abnormal. [facility] [id number] 02:08:00 Test Item Value Reference Range Interpretation Comments UA Spec Grav (test code = UA Spec Grav) 1.009 [facility] [id number] 02:08:00 Test Item Value Reference Range Interpretation Comments UA Color (test code = Yellow *NA*(06/10/16 UA Color) 8:08 PM) [facility] [id number] 02:08:00 Test Item Value Reference Range Interpretation Comments UA Turbidity (test code = Clear (06/10/16 8:08 UA Turbidity) PM) [facility] [place]2016-12-22 02:08:00 Test Item Value Reference Range Interpretation Comments U Preg (test code = U Negative (06/10/16 8:08 Preg) PM) [facility] [id number] 02:08:00 Test Item Value Reference Range Interpretation Comments U Protein (test code = U Protein) 375.4 [facility] CenterInnominate Security [id number] 02:08:00 Test Item Value Reference Range Interpretation Comments U Prot/Creat (test code = U Prot/Creat) 5.4 [facility] [id number] 02:08:00 Test Item Value Reference Range Interpretation Comments U Creatinine (test code = U Creatinine) 69.80 [facility] 02:08:00 Test Item Value Reference Range Interpretation Comments CK MB Index (test 1.8 See_Comment [Automate d message] The code = CK MB Index) system w [facility] generated this result transmit rohit reference range : <=2.5. The reference range was not used to interpr et this result as reji l/abnormal. [facility] [employer]2016-12-22 02:08:00 Test Item Value Reference Range Interpretation Comments CK MB (test code = CK MB) 2.9 0.5-3.6 [facility]2016-[facility] 02:08:00 Test Item Value Reference Range Interpretation Comments Troponin-T (test code 0.061 See_Comment [Auto mated message] The = Troponin-T) system which g enerated this result transmit rohit reference range : <=0.100. The reference r leo was not used to interpr et this result as reji l/abnormal. [facility] [employer]2016-12-22 02:08:00 Test Item Value Reference Range Interpretation Comments Total CK (test code = Total CK) 159 12-191 [facility] 02:08:00 Test Item Value Reference Range Interpretation Comments Troponin-I (test code no gt See_Comment [Auto mated message] The = Troponin-I) system which g enerated this result transmit rohit reference range : <=0.40. The reference r leo was not used to interpr et this result as reji l/abnormal. [place] 141206-12-22 02:08:00 Test Item Value Reference Range Interpretation Comments Bili Total (test code = Bili Total) 0.2 0.2-1.3 [place] 141206-12-22 02:08:00 Test Item Value Reference Range Interpretation Comments Bili Direct (test code 0.1 See_Comment [Aut omated message] The = Bili Direct) system which generated this result tra nsmitted reference range : <=0.3. The reference r leo was not used to int erpret this result as reji l/abnormal. [place] 141206-12-22 02:08:00 Test Item Value Reference Range Interpretation Comments Bili Indirect (test 0.1 See_Comment [Automa rohit message] The code = Bili Indirect) system which generated this result tra nsmitted reference range : <=1.0. The reference r leo was not used to int erpret this result as normal/abnormal . [facility]2016-12-22 02:08:00 Test Item Value Reference Range Interpretation Comments Total Protein (test code = Total 5.7 6.4-8.4 Protein) [facility]2016-12-22 02:08:00 Test Item Value Reference Range Interpretation Comments A/G Ratio (test code = A/G Ratio) 0.5 0.7-1.6 [place] 141206-12-22 02:08:00 Test Item Value Reference Range Interpretation Comments Albumin Lvl (test code = Albumin Lvl) 1.8 3.5-5.0 [place] 141206-12-22 02:08:00 Test Item Value Reference Range Interpretation Comments Globulin (test code = Globulin) 3.9 2.7-4.2 [place] 141206-12-22 02:08:00 Test Item Value Reference Range Interpretation Comments Alk Phos (test code = Alk Phos) 99 39-136 [place] 141206-12-22 02:08:00 Test Item Value Reference Range Interpretation Comments AST (test code = AST) 21 See_Comment [Auto mated message] The system which ge nerated this result transmit rohit reference range : <=37. The reference range was not used to interpr et this result as reji l/abnormal. [facility]annCHEM [id number] 02:08:00 Test Item Value Reference Range Interpretation Comments ALT (test code = ALT) 17 See_Comment [Auto mated message] The system which ge nerated this result transmit rohit reference range : <=65. The reference range was not used to interpr et this result as reji l/abnormal. [facility] [id number] 02:08:00 Test Item Value Reference Range Interpretation Comments UDS Note (test code = See Note *NA*(06/10/16 UDS Note) 8:08 PM) [facility] [id number] 02:08:00 Test Item Value Reference Range Interpretation Comments U Propoxyph Scr (test Negative *NA*(06/10/16 code = U Propoxyph Scr) 8:08 PM) [facility] [id number] 02:08:00 Test Item Value Reference Range Interpretation Comments U Opiate Scr (test Negative *NA*(06/10/16 code = U Opiate Scr) 8:08 PM) [facility] [id number] 02:08:00 Test Item Value Reference Range Interpretation Comments U Methadone Scr (test Negative *NA*(06/10/16 code = U Methadone Scr) 8:08 PM) [facility] [id number] 02:08:00 Test Item Value Reference Range Interpretation Comments U Phencyc Scr (test Negative *NA*(06/10/16 code = U Phencyc Scr) 8:08 PM) [facility] [id number] 02:08:00 Test Item Value Reference Range Interpretation Comments U Cannab Scr (test Negative *NA*(06/10/16 code = U Cannab Scr) 8:08 PM) [facility] [id number] 02:08:00 Test Item Value Reference Range Interpretation Comments U Amph Scr (test code Negative *NA*(06/10/16 = U Amph Scr) 8:08 PM) [facility] [id number] 02:08:00 Test Item Value Reference Range Interpretation Comments U Kelly Scr (test code Negative *NA*(06/10/16 = U Kelly Scr) 8:08 PM) [facility] [id number] 02:08:00 Test Item Value Reference Range Interpretation Comments U Benzodia Scr (test Negative *NA*(06/10/16 code = U Benzodia Scr) 8:08 PM) [facility] [id number] 02:08:00 Test Item Value Reference Range Interpretation Comments U Cocaine Scr (test Negative *NA*(06/10/16 code = U Cocaine Scr) 8:08 PM) [facility] [id number] 02:08:00 Test Item Value Reference Range Interpretation Comments LDL (Calculated) (test code = LDL 75 (Calculated)) [facility] CenterKzngjlpPQKAFS2835-09-10 02:08:00 Test Item Value Reference Range Interpretation Comments VLDL (test code = VLDL) 27 [facility] [id number] 02:08:00 Test Item Value Reference Range Interpretation Comments Chol (test code = Chol) 133 [facility] [id number] 02:08:00 Test Item Value Reference Range Interpretation Comments Trig (test code = Trig) 133 [facility] [id number] 02:08:00 Test Item Value Reference Range Interpretation Comments CHD Risk (test code = CHD Risk) 4.29 3.90-5.80 [facility] [id number] 02:08:00 Test Item Value Reference Range Interpretation Comments HDL (test code = HDL) 31 [facility] AND [id number] 02:08:00 Test Item Value Reference Range Interpretation Comments UA Urobilinogen (test code = UA <=1.0 mg/dL 0.1-1.0 Urobilinogen) [facility] AND [id number] 02:08:00 Test Item Value Reference Range Interpretation Comments UA Ketones (test code = UA Negative mg/dL Ketones) [facility] AND [id number] 02:08:00 Test Item Value Reference Range Interpretation Comments UA Glucose (test code = UA Glucose) 300 mg/dL [facility] AND [id number] 02:08:00 Test Item Value Reference Range Interpretation Comments UA Protein (test code = UA >=300 mg/dL Protein) [facility] AND [id number] 02:08:00 Test Item Value Reference Range Interpretation Comments UA pH (test code = UA pH) 6.0 5.0-8.0 [facility] AND [id number] 02:08:00 Test Item Value Reference Range Interpretation Comments UA Nitrite (test code Negative (06/10/16 8:08 = UA Nitrite) PM) [facility] AND [id number] 02:08:00 Test Item Value Reference Range Interpretation Comments UA Blood (test code = Trace *ABN*(06/10/16 UA Blood) 8:08 PM) [facility] AND [id number] 02:08:00 Test Item Value Reference Range Interpretation Comments UA Bili (test code = Negative *NA*(06/10/16 UA Bili) 8:08 PM) [facility] AND [id number] 02:08:00 Test Item Value Reference Range Interpretation Comments UA Mucus (test code = UA Mucus) Few /LPF [facility] AND [id number] 02:08:00 Test Item Value Reference Range Interpretation Comments UA RBC (test code = 4 See_Comment [Automa rohit message] The UA RBC) system which ge nerated this result transmit rohit reference range : <=2. The reference range was not used to interpr et this result as reji l/abnormal. [facility] AND [id number] 02:08:00 Test Item Value Reference Range Interpretation Comments UA Sq Epi (test code = UA Sq Epi) Few /LPF [facility] AND [id number] 02:08:00 Test Item Value Reference Range Interpretation Comments UA WBC (test code = 5 See_Comment [Automa rohit message] The UA WBC) system which ge nerated this result transmit rohit reference range : <=5. The reference range was not used to interpr et this result as reji l/abnormal. [facility] AND [id number] 02:08:00 Test Item Value Reference Range Interpretation Comments UA Leuk Est (test code Small *ABN*(06/10/16 = UA Leuk Est) 8:08 PM) [facility] AND [id number] 02:08:00 Test Item Value Reference Range Interpretation Comments UA Hyal Cast (test 1 See_Comment [Automat ed message] The code = UA Hyal Cast) system which generated this result transmit rohit reference range : <=2. The reference range was not used to interpr et this result as reji l/abnormal. [facility] [id number] 02:08:00 Test Item Value Reference Range Interpretation Comments UA Spec Grav (test code = UA Spec Grav) 1.009 [facility] [id number] 02:08:00 Test Item Value Reference Range Interpretation Comments UA Color (test code = Yellow *NA*(06/10/16 UA Color) 8:08 PM) [facility] [id number] 02:08:00 Test Item Value Reference Range Interpretation Comments UA Turbidity (test code = Clear (06/10/16 8:08 UA Turbidity) PM) [facility] [id number] 02:08:00 Test Item Value Reference Range Interpretation Comments U Preg (test code = U Negative (06/10/16 8:08 Preg) PM) [facility] [id number] 02:08:00 Test Item Value Reference Range Interpretation Comments U Protein (test code = U Protein) 375.4 [facility] [id number] 02:08:00 Test Item Value Reference Range Interpretation Comments U Prot/Creat (test code = U Prot/Creat) 5.4 [facility] [id number] 02:08:00 Test Item Value Reference Range Interpretation Comments U Creatinine (test code = U Creatinine) 69.80 [facility]annCARD[facility]AC [id number] 02:08:00 Test Item Value Reference Range Interpretation Comments CK MB Index (test 1.8 See_Comment [Automate d message] The code = CK MB Index) system w [facility] generated this result transmit rohit reference range : <=2.5. The reference range was not used to interpr et this result as reji l/abnormal. [facility]annCARDIAC [id number] 02:08:00 Test Item Value Reference Range Interpretation Comments CK MB (test code = CK MB) 2.9 0.5-3.6 [facility] [id number] 02:08:00 Test Item Value Reference Range Interpretation Comments Troponin-T (test code 0.061 See_Comment [Auto mated message] The = Troponin-T) system which g enerated this result transmit rohit reference range : <=0.100. The reference r leo was not used to interpr et this result as reji l/abnormal. [facility] [id number] 02:08:00 Test Item Value Reference Range Interpretation Comments Total CK (test code = Total CK) 159 12-191 [facility]CAR[facility]CA[facility] [id number] 02:08:00 Test Item Value Reference Range Interpretation Comments Troponin-I (test code no gt See_Comment [Auto mated message] The = Troponin-I) system which g enerated this result transmit rohit reference range : <=0.40. The reference r leo was not used to interpr et this result as reji l/abnormal. [facility] [employer] [id number] 02:08:00 Test Item Value Reference Range Interpretation Comments Bili Total (test code = Bili Total) 0.2 0.2-1.3 [facility] [id number] 02:08:00 Test Item Value Reference Range Interpretation Comments Bili Direct (test code 0.1 See_Comment [Aut omated message] The = Bili Direct) system which generated this result tra nsmitted reference range : <=0.3. The reference r leo was not used to int erpret this result as reji l/abnormal. [facility] [employer] [id number] 02:08:00 Test Item Value Reference Range Interpretation Comments Bili Indirect (test 0.1 See_Comment [Automa rohit message] The code = Bili Indirect) system which generated this result tra nsmitted reference range : <=1.0. The reference r leo was not used to int erpret this result as normal/abnormal . [facility] [employer] [id number] 02:08:00 Test Item Value Reference Range Interpretation Comments Total Protein (test code = Total 5.7 6.4-8.4 Protein) [facility] [id number] 02:08:00 Test Item Value Reference Range Interpretation Comments A/G Ratio (test code = A/G Ratio) 0.5 0.7-1.6 [facility] [id number] 02:08:00 Test Item Value Reference Range Interpretation Comments Albumin Lvl (test code = Albumin Lvl) 1.8 3.5-5.0 [facility] [id number] 02:08:00 Test Item Value Reference Range Interpretation Comments Globulin (test code = Globulin) 3.9 2.7-4.2 [facility] [employer] [id number] 02:08:00 Test Item Value Reference Range Interpretation Comments Alk Phos (test code = Alk Phos) 99 39-136 [facility] [employer] [id number] 02:08:00 Test Item Value Reference Range Interpretation Comments AST (test code = AST) 21 See_Comment [Auto mated message] The system which ge nerated this result transmit rohit reference range : <=37. The reference range was not used to interpr et this result as reji l/abnormal. [employer] [id number] 02:08:00 Test Item Value Reference Range Interpretation Comments ALT (test code = ALT) 17 See_Comment [Auto mated message] The system which ge nerated this result transmit rohit reference range : <=65. The reference range was not used to interpr et this result as reji l/abnormal. [facility] [employer] [id number] 02:08:00 Test Item Value Reference Range Interpretation Comments UDS Note (test code = See Note *NA*(06/10/16 UDS Note) 8:08 PM) [facility] [id number] 02:08:00 Test Item Value Reference Range Interpretation Comments U Propoxyph Scr (test Negative *NA*(06/10/16 code = U Propoxyph Scr) 8:08 PM) [facility] [id number] 02:08:00 Test Item Value Reference Range Interpretation Comments U Opiate Scr (test Negative *NA*(06/10/16 code = U Opiate Scr) 8:08 PM) [facility] AmulyteDRUG [id number] 02:08:00 Test Item Value Reference Range Interpretation Comments U Methadone Scr (test Negative *NA*(06/10/16 code = U Methadone Scr) 8:08 PM) [facility] [id number] 02:08:00 Test Item Value Reference Range Interpretation Comments U Phencyc Scr (test Negative *NA*(06/10/16 code = U Phencyc Scr) 8:08 PM) [facility] [id number] 02:08:00 Test Item Value Reference Range Interpretation Comments U Cannab Scr (test Negative *NA*(06/10/16 code = U Cannab Scr) 8:08 PM) [facility] [id number] 02:08:00 Test Item Value Reference Range Interpretation Comments U Amph Scr (test code Negative *NA*(06/10/16 = U Amph Scr) 8:08 PM) [facility] [id number] 02:08:00 Test Item Value Reference Range Interpretation Comments U Kelly Scr (test code Negative *NA*(06/10/16 = U Kelly Scr) 8:08 PM) [facility] [id number] 02:08:00 Test Item Value Reference Range Interpretation Comments U Benzodia Scr (test Negative *NA*(06/10/16 code = U Benzodia Scr) 8:08 PM) [facility] [id number] 02:08:00 Test Item Value Reference Range Interpretation Comments U Cocaine Scr (test Negative *NA*(06/10/16 code = U Cocaine Scr) 8:08 PM) [facility] [id number] 02:08:00 Test Item Value Reference Range Interpretation Comments LDL (Calculated) (test code = LDL 75 (Calculated)) [facility] [id number] 02:08:00 Test Item Value Reference Range Interpretation Comments VLDL (test code = VLDL) 27 [facility] [id number] 02:08:00 Test Item Value Reference Range Interpretation Comments Chol (test code = Chol) 133 [facility] [id number] 02:08:00 Test Item Value Reference Range Interpretation Comments Trig (test code = Trig) 133 [facility] [id number] 02:08:00 Test Item Value Reference Range Interpretation Comments CHD Risk (test code = CHD Risk) 4.29 3.90-5.80 [facility] [id number] 02:08:00 Test Item Value Reference Range Interpretation Comments HDL (test code = HDL) 31 [facility] [id number] 02:08:00 Test Item Value Reference Range Interpretation Comments UA Urobilinogen (test code = UA <=1.0 mg/dL 0.1-1.0 Urobilinogen) [facility] [id number] 02:08:00 Test Item Value Reference Range Interpretation Comments UA Ketones (test code = UA Negative mg/dL Ketones) [facility] AND [id number] 02:08:00 Test Item Value Reference Range Interpretation Comments UA Glucose (test code = UA Glucose) 300 mg/dL [facility] AND [id number] 02:08:00 Test Item Value Reference Range Interpretation Comments UA Protein (test code = UA >=300 mg/dL Protein) [facility] AND [id number] 02:08:00 Test Item Value Reference Range Interpretation Comments UA pH (test code = UA pH) 6.0 5.0-8.0 [facility] AND [id number] 02:08:00 Test Item Value Reference Range Interpretation Comments UA Nitrite (test code Negative (06/10/16 8:08 = UA Nitrite) PM) [facility] AND [id number] 02:08:00 Test Item Value Reference Range Interpretation Comments UA Blood (test code = Trace *ABN*(06/10/16 UA Blood) 8:08 PM) [facility] AND [id number] 02:08:00 Test Item Value Reference Range Interpretation Comments UA Bili (test code = Negative *NA*(06/10/16 UA Bili) 8:08 PM) [facility] AND [id number] 02:08:00 Test Item Value Reference Range Interpretation Comments UA Mucus (test code = UA Mucus) Few /LPF [facility] AND [id number] 02:08:00 Test Item Value Reference Range Interpretation Comments UA RBC (test code = 4 See_Comment [Automa rohit message] The UA RBC) system which ge nerated this result transmit rohit reference range : <=2. The reference range was not used to interpr et this result as reji l/abnormal. [facility] AND [id number] 02:08:00 Test Item Value Reference Range Interpretation Comments UA Sq Epi (test code = UA Sq Epi) Few /LPF [facility] AND [id number] 02:08:00 Test Item Value Reference Range Interpretation Comments UA WBC (test code = 5 See_Comment [Automa rohit message] The UA WBC) system which ge nerated this result transmit rohit reference range : <=5. The reference range was not used to interpr et this result as reji l/abnormal. [facility] [id number] 02:08:00 Test Item Value Reference Range Interpretation Comments UA Leuk Est (test code Small *ABN*(06/10/16 = UA Leuk Est) 8:08 PM) [facility] [id number] 02:08:00 Test Item Value Reference Range Interpretation Comments UA Hyal Cast (test 1 See_Comment [Automat ed message] The code = UA Hyal Cast) system which generated this result transmit rohit reference range : <=2. The reference range was not used to interpr et this result as reji l/abnormal. [facility] [id number] 02:08:00 Test Item Value Reference Range Interpretation Comments UA Spec Grav (test code = UA Spec Grav) 1.009 [facility] [id number] 02:08:00 Test Item Value Reference Range Interpretation Comments UA Color (test code = Yellow *NA*(06/10/16 UA Color) 8:08 PM) [facility] [id number] 02:08:00 Test Item Value Reference Range Interpretation Comments UA Turbidity (test code = Clear (06/10/16 8:08 UA Turbidity) PM) [facility] [id number] 02:08:00 Test Item Value Reference Range Interpretation Comments U Preg (test code = U Negative (06/10/16 8:08 Preg) PM) [facility] [id number] 02:08:00 Test Item Value Reference Range Interpretation Comments U Protein (test code = U Protein) 375.4 [facility] [id number] 02:08:00 Test Item Value Reference Range Interpretation Comments U Prot/Creat (test code = U Prot/Creat) 5.4 [facility] [id number] 02:08:00 Test Item Value Reference Range Interpretation Comments U Creatinine (test code = U Creatinine) 69.80 [facility] [id number] 02:08:00 Test Item Value Reference Range Interpretation Comments CK MB Index (test 1.8 See_Comment [Automate d message] The code = CK MB Index) system w [facility] generated this result transmit rohit reference range : <=2.5. The reference range was not used to interpr et this result as reji l/abnormal. [facility] [employer]2016-12-22 02:08:00 Test Item Value Reference Range Interpretation Comments CK MB (test code = CK MB) 2.9 0.5-3.6 [facility] [id number] 02:08:00 Test Item Value Reference Range Interpretation Comments Troponin-T (test code 0.061 See_Comment [Auto mated message] The = Troponin-T) system which g enerated this result transmit rohit reference range : <=0.100. The reference r leo was not used to interpr et this result as reji l/abnormal. [facility] [employer] [id number] 02:08:00 Test Item Value Reference Range Interpretation Comments Total CK (test code = Total CK) 159 12-191 [facility] [employer] [id number] 02:08:00 Test Item Value Reference Range Interpretation Comments Troponin-I (test code no gt See_Comment [Auto mated message] The = Troponin-I) system which g enerated this result transmit rohit reference range : <=0.40. The reference r leo was not used to interpr et this result as reji l/abnormal. [facility] Kaliki2016-12-22 02:08:00 Test Item Value Reference Range Interpretation Comments Bili Total (test code = Bili Total) 0.2 0.2-1.3 [facility] Kal[facility]2016-12-22 02:08:00 Test Item Value Reference Range Interpretation Comments Bili Direct (test code 0.1 See_Comment [Aut omated message] The = Bili Direct) system which generated this result tra nsmitted reference range : <=0.3. The reference r leo was not used to int erpret this result as reji l/abnormal. [facility] Kaliki2016-12-22 02:08:00 Test Item Value Reference Range Interpretation Comments Bili Indirect (test 0.1 See_Comment [Automa rohit message] The code = Bili Indirect) system which generated this result tra nsmitted reference range : <=1.0. The reference r leo was not used to int erpret this result as normal/abnormal . Kynded2016-12-22 02:08:00 Test Item Value Reference Range Interpretation Comments Total Protein (test code = Total 5.7 6.4-8.4 Protein) [facility] [employer] [id number] 02:08:00 Test Item Value Reference Range Interpretation Comments A/G Ratio (test code = A/G Ratio) 0.5 0.7-1.6 [facility] [id number] 02:08:00 Test Item Value Reference Range Interpretation Comments Albumin Lvl (test code = Albumin Lvl) 1.8 3.5-5.0 [facility] [id number] 02:08:00 Test Item Value Reference Range Interpretation Comments Globulin (test code = Globulin) 3.9 2.7-4.2 [facility] [employer] [id number] 02:08:00 Test Item Value Reference Range Interpretation Comments Alk Phos (test code = Alk Phos) 99 39-136 [facility] [id number] 02:08:00 Test Item Value Reference Range Interpretation Comments AST (test code = AST) 21 See_Comment [Auto mated message] The system which ge nerated this result transmit rohit reference range : <=37. The reference range was not used to interpr et this result as reji l/abnormal. [facility] [employer] [id number] 02:08:00 Test Item Value Reference Range Interpretation Comments ALT (test code = ALT) 17 See_Comment [Auto mated message] The system which ge nerated this result transmit rohit reference range : <=65. The reference range was not used to interpr et this result as reji l/abnormal. [facility] [id number] 02:08:00 Test Item Value Reference Range Interpretation Comments UDS Note (test code = See Note *NA*(06/10/16 UDS Note) 8:08 PM) [facility] Reciclata2016-12-22 02:08:00 Test Item Value Reference Range Interpretation Comments U Propoxyph Scr (test Negative *NA*(06/10/16 code = U Propoxyph Scr) 8:08 PM) [facility] [id number] 02:08:00 Test Item Value Reference Range Interpretation Comments U Opiate Scr (test Negative *NA*(06/10/16 code = U Opiate Scr) 8:08 PM) [facility]ann[facility] [id number] 02:08:00 Test Item Value Reference Range Interpretation Comments U Methadone Scr (test Negative *NA*(06/10/16 code = U Methadone Scr) 8:08 PM) [facility] [id number] 02:08:00 Test Item Value Reference Range Interpretation Comments U Phencyc Scr (test Negative *NA*(06/10/16 code = U Phencyc Scr) 8:08 PM) [facility] [id number] 02:08:00 Test Item Value Reference Range Interpretation Comments U Cannab Scr (test Negative *NA*(06/10/16 code = U Cannab Scr) 8:08 PM) [facility] [id number] 02:08:00 Test Item Value Reference Range Interpretation Comments U Amph Scr (test code Negative *NA*(06/10/16 = U Amph Scr) 8:08 PM) [facility] [id number] 02:08:00 Test Item Value Reference Range Interpretation Comments U Kelly Scr (test code Negative *NA*(06/10/16 = U Kelly Scr) 8:08 PM) [facility] [id number] 02:08:00 Test Item Value Reference Range Interpretation Comments U Benzodia Scr (test Negative *NA*(06/10/16 code = U Benzodia Scr) 8:08 PM) [facility] [id number] 02:08:00 Test Item Value Reference Range Interpretation Comments U Cocaine Scr (test Negative *NA*(06/10/16 code = U Cocaine Scr) 8:08 PM) [facility] [id number] 02:08:00 Test Item Value Reference Range Interpretation Comments LDL (Calculated) (test code = LDL 75 (Calculated)) [facility] [id number] 02:08:00 Test Item Value Reference Range Interpretation Comments VLDL (test code = VLDL) 27 [facility] [id number] 02:08:00 Test Item Value Reference Range Interpretation Comments Chol (test code = Chol) 133 [facility] [id number] 02:08:00 Test Item Value Reference Range Interpretation Comments Trig (test code = Trig) 133 [facility] [id number] 02:08:00 Test Item Value Reference Range Interpretation Comments CHD Risk (test code = CHD Risk) 4.29 3.90-5.80 [facility] [id number] 02:08:00 Test Item Value Reference Range Interpretation Comments HDL (test code = HDL) 31 [facility] AND [id number] 02:08:00 Test Item Value Reference Range Interpretation Comments UA Urobilinogen (test code = UA <=1.0 mg/dL 0.1-1.0 Urobilinogen) [facility] AND [id number] 02:08:00 Test Item Value Reference Range Interpretation Comments UA Ketones (test code = UA Negative mg/dL Ketones) [facility] AND [id number] 02:08:00 Test Item Value Reference Range Interpretation Comments UA Glucose (test code = UA Glucose) 300 mg/dL [facility] AND [id number] 02:08:00 Test Item Value Reference Range Interpretation Comments UA Protein (test code = UA >=300 mg/dL Protein) [facility] AND [id number] 02:08:00 Test Item Value Reference Range Interpretation Comments UA pH (test code = UA pH) 6.0 5.0-8.0 [facility] AND [id number] 02:08:00 Test Item Value Reference Range Interpretation Comments UA Nitrite (test code Negative (06/10/16 8:08 = UA Nitrite) PM) [facility] AND [id number] 02:08:00 Test Item Value Reference Range Interpretation Comments UA Blood (test code = Trace *ABN*(06/10/16 UA Blood) 8:08 PM) [facility] AND [id number] 02:08:00 Test Item Value Reference Range Interpretation Comments UA Bili (test code = Negative *NA*(06/10/16 UA Bili) 8:08 PM) [facility] AND [id number] 02:08:00 Test Item Value Reference Range Interpretation Comments UA Mucus (test code = UA Mucus) Few /LPF [facility] AND [id number] 02:08:00 Test Item Value Reference Range Interpretation Comments UA RBC (test code = 4 See_Comment [Automa rohit message] The UA RBC) system which ge nerated this result transmit rohit reference range : <=2. The reference range was not used to interpr et this result as reji l/abnormal. [facility] [id number] 02:08:00 Test Item Value Reference Range Interpretation Comments UA Sq Epi (test code = UA Sq Epi) Few /LPF [facility] [id number] 02:08:00 Test Item Value Reference Range Interpretation Comments UA WBC (test code = 5 See_Comment [Automa rohit message] The UA WBC) system which ge nerated this result transmit rohit reference range : <=5. The reference range was not used to interpr et this result as reji l/abnormal. [facility] [id number] 02:08:00 Test Item Value Reference Range Interpretation Comments UA Leuk Est (test code Small *ABN*(06/10/16 = UA Leuk Est) 8:08 PM) [facility] [id number] 02:08:00 Test Item Value Reference Range Interpretation Comments UA Hyal Cast (test 1 See_Comment [Automat ed message] The code = UA Hyal Cast) system which generated this result transmit rohit reference range : <=2. The reference range was not used to interpr et this result as reji l/abnormal. [facility] [id number] 02:08:00 Test Item Value Reference Range Interpretation Comments UA Spec Grav (test code = UA Spec Grav) 1.009 [facility] [id number] 02:08:00 Test Item Value Reference Range Interpretation Comments UA Color (test code = Yellow *NA*(06/10/16 UA Color) 8:08 PM) [facility] AND [id number] 02:08:00 Test Item Value Reference Range Interpretation Comments UA Turbidity (test code = Clear (06/10/16 8:08 UA Turbidity) PM) [facility]2016-12-22 02:08:00 Test Item Value Reference Range Interpretation Comments U Preg (test code = U Negative (06/10/16 8:08 Preg) PM) [facility]2016-12-22 02:08:00 Test Item Value Reference Range Interpretation Comments U Protein (test code = U Protein) 375.4 [facility]2016-12-22 02:08:00 Test Item Value Reference Range Interpretation Comments U Prot/Creat (test code = U Prot/Creat) 5.4 [facility]manannURINE [id number] 02:08:00 Test Item Value Reference Range Interpretation Comments U Creatinine (test code = U Creatinine) 69.80 [facility]annC[facility] [id number] 02:08:00 Test Item Value Reference Range Interpretation Comments CK MB Index (test 1.8 See_Comment [Automate d message] The code = CK MB Index) system w [facility] generated this result transmit rohit reference range : <=2.5. The reference range was not used to interpr et this result as reji l/abnormal. [facility] NextlyannCARDIAC [id number] 02:08:00 Test Item Value Reference Range Interpretation Comments CK MB (test code = CK MB) 2.9 0.5-3.6 [facility]annCARDIAC [id number] 02:08:00 Test Item Value Reference Range Interpretation Comments Troponin-T (test code 0.061 See_Comment [Auto mated message] The = Troponin-T) system which g enerated this result transmit rohit reference range : <=0.100. The reference r leo was not used to interpr et this result as reji l/abnormal. [facility] NextlyannCARMir VrachaAC [id number] 02:08:00 Test Item Value Reference Range Interpretation Comments Total CK (test code = Total CK) 159 12-191 [facility] NextlyannCARDIAC [id number] 02:08:00 Test Item Value Reference Range Interpretation Comments Troponin-I (test code no gt See_Comment [Auto mated message] The = Troponin-I) system which g enerated this result transmit rohit reference range : <=0.40. The reference r leo was not used to interpr et this result as reji l/abnormal. [facility] AmulyteCHEM [id number] 02:08:00 Test Item Value Reference Range Interpretation Comments Bili Total (test code = Bili Total) 0.2 0.2-1.3 [facility] AmulyteCHEM [id number] 02:08:00 Test Item Value Reference Range Interpretation Comments Bili Direct (test code 0.1 See_Comment [Aut omated message] The = Bili Direct) system which generated this result tra nsmitted reference range : <=0.3. The reference r leo was not used to int erpret this result as reji l/abnormal. [facility] [employer] [id number] 02:08:00 Test Item Value Reference Range Interpretation Comments Bili Indirect (test 0.1 See_Comment [Automa rohit message] The code = Bili Indirect) system which generated this result tra nsmitted reference range : <=1.0. The reference r leo was not used to int erpret this result as normal/abnormal . [facility] [employer] [id number] 02:08:00 Test Item Value Reference Range Interpretation Comments Total Protein (test code = Total 5.7 6.4-8.4 Protein) [facility] [employer] [id number] 02:08:00 Test Item Value Reference Range Interpretation Comments A/G Ratio (test code = A/G Ratio) 0.5 0.7-1.6 [facility] [employer] [id number] 02:08:00 Test Item Value Reference Range Interpretation Comments Albumin Lvl (test code = Albumin Lvl) 1.8 3.5-5.0 [facility] [employer] [id number] 02:08:00 Test Item Value Reference Range Interpretation Comments Globulin (test code = Globulin) 3.9 2.7-4.2 [facility] [employer] [id number] 02:08:00 Test Item Value Reference Range Interpretation Comments Alk Phos (test code = Alk Phos) 99 39-136 [facility] [employer] [id number] 02:08:00 Test Item Value Reference Range Interpretation Comments AST (test code = AST) 21 See_Comment [Auto mated message] The system which ge nerated this result transmit rohit reference range : <=37. The reference range was not used to interpr et this result as reji l/abnormal. [facility] [employer] [id number] 02:08:00 Test Item Value Reference Range Interpretation Comments ALT (test code = ALT) 17 See_Comment [Auto mated message] The system which ge nerated this result transmit rohit reference range : <=65. The reference range was not used to interpr et this result as reji l/abnormal. [facility] CenterClipMineSELECT [facility] [id number] 02:08:00 Test Item Value Reference Range Interpretation Comments UDS Note (test code = See Note *NA*(06/10/16 UDS Note) 8:08 PM) [facility] [id number] 02:08:00 Test Item Value Reference Range Interpretation Comments U Propoxyph Scr (test Negative *NA*(06/10/16 code = U Propoxyph Scr) 8:08 PM) [facility] [id number] 02:08:00 Test Item Value Reference Range Interpretation Comments U Opiate Scr (test Negative *NA*(06/10/16 code = U Opiate Scr) 8:08 PM) [facility] [id number] 02:08:00 Test Item Value Reference Range Interpretation Comments U Methadone Scr (test Negative *NA*(06/10/16 code = U Methadone Scr) 8:08 PM) [facility] [id number] 02:08:00 Test Item Value Reference Range Interpretation Comments U Phencyc Scr (test Negative *NA*(06/10/16 code = U Phencyc Scr) 8:08 PM) [facility] [id number] 02:08:00 Test Item Value Reference Range Interpretation Comments U Cannab Scr (test Negative *NA*(06/10/16 code = U Cannab Scr) 8:08 PM) [facility] [id number] 02:08:00 Test Item Value Reference Range Interpretation Comments U Amph Scr (test code Negative *NA*(06/10/16 = U Amph Scr) 8:08 PM) [facility] [id number] 02:08:00 Test Item Value Reference Range Interpretation Comments U Kelly Scr (test code Negative *NA*(06/10/16 = U Kelly Scr) 8:08 PM) [facility] [id number] 02:08:00 Test Item Value Reference Range Interpretation Comments U Benzodia Scr (test Negative *NA*(06/10/16 code = U Benzodia Scr) 8:08 PM) [facility] [id number] 02:08:00 Test Item Value Reference Range Interpretation Comments U Cocaine Scr (test Negative *NA*(06/10/16 code = U Cocaine Scr) 8:08 PM) [facility] [id number] 02:08:00 Test Item Value Reference Range Interpretation Comments LDL (Calculated) (test code = LDL 75 (Calculated)) [id number] 02:08:00 Test Item Value Reference Range Interpretation Comments VLDL (test code = VLDL) 27 [facility] [id number] 02:08:00 Test Item Value Reference Range Interpretation Comments Chol (test code = Chol) 133 [facility] [id number] 02:08:00 Test Item Value Reference Range Interpretation Comments Trig (test code = Trig) 133 [facility] [id number] 02:08:00 Test Item Value Reference Range Interpretation Comments CHD Risk (test code = CHD Risk) 4.29 3.90-5.80 [facility] SunnyvaleApdkgjoMFDKPP9069-06-95 02:08:00 Test Item Value Reference Range Interpretation Comments HDL (test code = HDL) 31 [facility] AND [id number] 02:08:00 Test Item Value Reference Range Interpretation Comments UA Urobilinogen (test code = UA <=1.0 mg/dL 0.1-1.0 Urobilinogen) [facility] AND [id number] 02:08:00 Test Item Value Reference Range Interpretation Comments UA Ketones (test code = UA Negative mg/dL Ketones) [facility] AND [id number] 02:08:00 Test Item Value Reference Range Interpretation Comments UA Glucose (test code = UA Glucose) 300 mg/dL [facility] AND [id number] 02:08:00 Test Item Value Reference Range Interpretation Comments UA Protein (test code = UA >=300 mg/dL Protein) [facility] AND [id number] 02:08:00 Test Item Value Reference Range Interpretation Comments UA pH (test code = UA pH) 6.0 5.0-8.0 [facility] AND [id number] 02:08:00 Test Item Value Reference Range Interpretation Comments UA Nitrite (test code Negative (06/10/16 8:08 = UA Nitrite) PM) [facility] AND [id number] 02:08:00 Test Item Value Reference Range Interpretation Comments UA Blood (test code = Trace *ABN*(06/10/16 UA Blood) 8:08 PM) [facility] AND [id number] 02:08:00 Test Item Value Reference Range Interpretation Comments UA Bili (test code = Negative *NA*(06/10/16 UA Bili) 8:08 PM) [facility] AND [id number] 02:08:00 Test Item Value Reference Range Interpretation Comments UA Mucus (test code = UA Mucus) Few /LPF [facility] AND [id number] 02:08:00 Test Item Value Reference Range Interpretation Comments UA RBC (test code = 4 See_Comment [Automa rohit message] The UA RBC) system which ge nerated this result transmit rohit reference range : <=2. The reference range was not used to interpr et this result as reji l/abnormal. [facility] AND [id number] 02:08:00 Test Item Value Reference Range Interpretation Comments UA Sq Epi (test code = UA Sq Epi) Few /LPF [facility] [id number] 02:08:00 Test Item Value Reference Range Interpretation Comments UA WBC (test code = 5 See_Comment [Automa rohit message] The UA WBC) system which ge nerated this result transmit rohit reference range : <=5. The reference range was not used to interpr et this result as reji l/abnormal. [facility] AND [id number] 02:08:00 Test Item Value Reference Range Interpretation Comments UA Leuk Est (test code Small *ABN*(06/10/16 = UA Leuk Est) 8:08 PM) [facility] AND [id number] 02:08:00 Test Item Value Reference Range Interpretation Comments UA Hyal Cast (test 1 See_Comment [Automat ed message] The code = UA Hyal Cast) system which generated this result transmit rohit reference range : <=2. The reference range was not used to interpr et this result as reji l/abnormal. [facility] AND [id number] 02:08:00 Test Item Value Reference Range Interpretation Comments UA Spec Grav (test code = UA Spec Grav) 1.009 [facility] AND [id number] 02:08:00 Test Item Value Reference Range Interpretation Comments UA Color (test code = Yellow *NA*(06/10/16 UA Color) 8:08 PM) [facility] AND [id number] 02:08:00 Test Item Value Reference Range Interpretation Comments UA Turbidity (test code = Clear (06/10/16 8:08 UA Turbidity) PM) [facility] [id number] 02:08:00 Test Item Value Reference Range Interpretation Comments U Preg (test code = U Negative (06/10/16 8:08 Preg) PM) [facility] [id number] 02:08:00 Test Item Value Reference Range Interpretation Comments U Protein (test code = U Protein) 375.4 [facility] [id number] 02:08:00 Test Item Value Reference Range Interpretation Comments U Prot/Creat (test code = U Prot/Creat) 5.4 [facility] [id number] 02:08:00 Test Item Value Reference Range Interpretation Comments U Creatinine (test code = U Creatinine) 69.80 [facility] [employer]2016-12-21 16:53:00 Test Item Value Reference Range Interpretation Comments BNP (test code = BNP) 1135 [facility] [employer]2016-12-21 16:53:00 Test Item Value Reference Range Interpretation Comments Troponin-I (test code no gt See_Comment [Auto mated message] The = Troponin-I) system which g enerated this result transmit rohit reference range : <=0.40. The reference r leo was not used to interpr et this result as reji l/abnormal. [facility] [employer]2016-12-21 16:53:00 Test Item Value Reference Range Interpretation Comments BNP (test code = BNP) 1135 [facility] [employer]2016-12-21 16:53:00 Test Item Value Reference Range Interpretation Comments Troponin-I (test code no gt See_Comment [Auto mated message] The = Troponin-I) system which g enerated this result transmit rohit reference range : <=0.40. The reference r leo was not used to interpr et this result as reji l/abnormal. [facility] [employer]2016-12-21 16:53:00 Test Item Value Reference Range Interpretation Comments BNP (test code = BNP) 1135 [facility] [employer]2016-12-21 16:53:00 Test Item Value Reference Range Interpretation Comments Troponin-I (test code no gt See_Comment [Auto mated message] The = Troponin-I) system which g enerated this result transmit rohit reference range : <=0.40. The reference r leo was not used to interpr et this result as reji l/abnormal. [facility] NextlyannCARDIAC [id number] 16:53:00 Test Item Value Reference Range Interpretation Comments BNP (test code = BNP) 1135 [facility]ClipMineCARMir Vracha [id number] 16:53:00 Test Item Value Reference Range Interpretation Comments Troponin-I (test code no gt See_Comment [Auto mated message] The = Troponin-I) system which g enerated this result transmit rohit reference range : <=0.40. The reference r leo was not used to interpr et this result as reji l/abnormal. [facility] [employer] [id number] 16:53:00 Test Item Value Reference Range Interpretation Comments BNP (test code = BNP) 1135 [facility] [id number] 16:53:00 Test Item Value Reference Range Interpretation Comments Troponin-I (test code no gt See_Comment [Auto mated message] The = Troponin-I) system which g enerated this result transmit rohit reference range : <=0.40. The reference r leo was not used to interpr et this result as reji l/abnormal. [facility] [id number] 13:02:00 Test Item Value Reference Range Interpretation Comments Lactic Acid WB (test code = Lactic Acid 0.9 0.5-2.2 WB) [facility] [id number] 13:02:00 Test Item Value Reference Range Interpretation Comments Lactic Acid WB (test code = Lactic Acid 0.9 0.5-2.2 WB) [facility] [id number] 13:02:00 Test Item Value Reference Range Interpretation Comments Lactic Acid WB (test code = Lactic Acid 0.9 0.5-2.2 WB) [id number] 13:02:00 Test Item Value Reference Range Interpretation Comments Lactic Acid WB (test code = Lactic Acid 0.9 0.5-2.2 WB) [facility] [id number] 13:02:00 Test Item Value Reference Range Interpretation Comments Lactic Acid WB (test code = Lactic Acid 0.9 0.5-2.2 WB) [place] [id number] 12:29:44 Test Item Value Reference Range Interpretation Comments Valproic Acid Lvl (test code = Valproic 10 50-100 Acid Lvl) [place] [id number] 12:29:44 Test Item Value Reference Range Interpretation Comments Valproic Acid Lvl (test code = Valproic 10 50-100 Acid Lvl) [place] [id number] 12:29:44 Test Item Value Reference Range Interpretation Comments Valproic Acid Lvl (test code = Valproic 10 50-100 Acid Lvl) [place] [id number] 12:29:44 Test Item Value Reference Range Interpretation Comments Valproic Acid Lvl (test code = Valproic 10 50-100 Acid Lvl) [place] [id number] 12:29:44 Test Item Value Reference Range Interpretation Comments Valproic Acid Lvl (test code = Valproic 10 50-100 Acid Lvl) [place] [id number] 11:21:27 Test Item Value Reference Range Interpretation Comments hCG Tot (test code = hCG Tot) 1 [place] [id number] 11:21:27 Test Item Value Reference Range Interpretation Comments hCG Tot (test code = hCG Tot) 1 [place] [id number] 11:21:27 Test Item Value Reference Range Interpretation Comments hCG Tot (test code = hCG Tot) 1 [place] [id number] 11:21:27 Test Item Value Reference Range Interpretation Comments hCG Tot (test code = hCG Tot) 1 [place] [id number] 11:21:27 Test Item Value Reference Range Interpretation Comments hCG Tot (test code = hCG Tot) 1 [facility]2015-01-06 11:21:00 Test Item Value Reference Range Interpretation Comments Albumin Lvl (test code = Albumin Lvl) 3.2 3.5-5.0 [facility]2015-01-06 11:21:00 Test Item Value Reference Range Interpretation Comments Total Protein (test code = Total 6.6 6.4-8.4 Protein) [facility]2015-01-06 11:21:00 Test Item Value Reference Range Interpretation Comments Bili Total (test code = Bili Total) 0.6 0.2-1.3 [facility]2015-01-06 11:21:00 Test Item Value Reference Range Interpretation Comments Alk Phos (test code = Alk Phos) 59 39-136 [facility]2015-01-06 11:21:00 Test Item Value Reference Range Interpretation Comments AST (test code = AST) 11 See_Comment [Auto mated message] The system which ge nerated this result transmit rohit reference range : <=37. The reference range was not used to interpr et this result as reji l/abnormal. [facility]2015-01-06 11:21:00 Test Item Value Reference Range Interpretation Comments ALT (test code = ALT) 17 See_Comment [Auto mated message] The system which ge nerated this result transmit rohit reference range : <=65. The reference range was not used to interpr et this result as reji l/abnormal. [facility]2015-01-06 11:21:00 Test Item Value Reference Range Interpretation Comments eGFR (test code = eGFR) 99 [facility]2015-01-06 11:21:00 Test Item Value Reference Range Interpretation Comments Glucose Lvl (test code = Glucose Lvl) 314 70-99 [facility]2015-01-06 11:21:00 Test Item Value Reference Range Interpretation Comments Potassium Lvl (test code = Potassium 3.4 3.5-5.1 Lvl) [facility]2015-01-06 11:21:00 Test Item Value Reference Range Interpretation Comments BUN (test code = BUN) 11 7-22 [facility]2015-01-06 11:21:00 Test Item Value Reference Range Interpretation Comments Creatinine Lvl (test code = Creatinine 0.8 0.5-1.4 Lvl) [facility]2015-01-06 11:21:00 Test Item Value Reference Range Interpretation Comments Sodium Lvl (test code = Sodium Lvl) 134 135-145 [facility]2015-01-06 11:21:00 Test Item Value Reference Range Interpretation Comments Chloride Lvl (test code = Chloride Lvl) 94 95-109 [facility]2015-01-06 11:21:00 Test Item Value Reference Range Interpretation Comments Calcium Lvl (test code = Calcium Lvl) 9.1 8.5-10.5 [facility]2015-01-06 11:21:00 Test Item Value Reference Range Interpretation Comments CO2 (test code = CO2) 24 24-32 [facility]2015-01-06 11:21:00 Test Item Value Reference Range Interpretation Comments A/G Ratio (test code = A/G Ratio) 0.9 0.7-1.6 [facility]2015-01-06 11:21:00 Test Item Value Reference Range Interpretation Comments Globulin (test code = Globulin) 3.4 2.0-4.0 [facility]2015-01-06 11:21:00 Test Item Value Reference Range Interpretation Comments B/C Ratio (test code = B/C Ratio) 14 6-25 [facility]2015-01-06 11:21:00 Test Item Value Reference Range Interpretation Comments AGAP (test code = AGAP) 19.4 10.0-20.0 [facility]2015-01-06 11:21:00 Test Item Value Reference Range Interpretation Comments Lipase Lvl (test code = Lipase Lvl) 81 73-393 [facility]VkmlgfxAJPNECNSCH4088-57-26 11:21:00 Test Item Value Reference Range Interpretation Comments Large Plt (test code = Large Plt) Slight [facility] HospitalMynitgiAUIGKWLYMR4036-97-31 11:21:00 Test Item Value Reference Range Interpretation Comments Basophils # (test code 0.0 See_Comment [Aut omated message] The = Basophils #) system which generated this result tra nsmitted reference range : <=0.2. The reference r leo was not used to int erpret this result as normal/abnormal . [facility] HospitalRzrdftoOREAEXCRLI6426-22-21 11:21:00 Test Item Value Reference Range Interpretation Comments Anisocyte (test code = 1+ *ABN*(06/26/14 5:21 Anisocyte) AM) [facility] HospitalJhydimwCZHTASOOAN6974-07-23 11:21:00 Test Item Value Reference Range Interpretation Comments Monocytes # (test code 0.6 See_Comment [Aut omated message] The = Monocytes #) system which generated this result tra nsmitted reference range : <=0.8. The reference r leo was not used to int erpret this result as normal/abnormal . [facility] HospitalRwffuxaSVKQPGOSFC5920-14-93 11:21:00 Test Item Value Reference Range Interpretation Comments Eosinophils # (test code 0.1 See_Comment [A utomated message] The = Eosinophils #) system whic h generated this result tra nsmitted reference range : <=0.5. The reference r leo was not used to int erpret this result as normal/abnormal . [facility] HospitalUgzhnhvHRYOGPSGPJ9007-12-69 11:21:00 Test Item Value Reference Range Interpretation Comments Lymphocytes # (test code = Lymphocytes 2.5 1.0-5.5 #) [facility] HospitalYpgumwhLBDNBMWKFZ7740-59-89 11:21:00 Test Item Value Reference Range Interpretation Comments Segs (test code = Segs) 63.3 45.0-75.0 [facility] HospitalJipzeveBQEECWJTDY9957-55-77 11:21:00 Test Item Value Reference Range Interpretation Comments Segs-Bands # (test code = Segs-Bands #) 5.6 1.5-8.1 [facility] HospitalPnonkfhLFCFKWJKAA4443-39-72 11:21:00 Test Item Value Reference Range Interpretation Comments Basophils (test code = 0.0 See_Comment [Aut omated message] The Basophils) system which ge nerated this result tra nsmitted reference range : <=1.0. The reference r leo was not used to int erpret this result as normal/abnormal . [facility] HospitalQdcdjdiNFCQZWVMOV9671-74-06 11:21:00 Test Item Value Reference Range Interpretation Comments Eosinophils (test code = 0.9 See_Comment [A utomated message] The Eosinophils) system which ge nerated this result tra nsmitted reference range : <=4.0. The reference r leo was not used to int erpret this result as normal/abnormal . [facility] HospitalOukbxrrOPRGMWVKJY0302-33-48 11:21:00 Test Item Value Reference Range Interpretation Comments Monocytes (test code = Monocytes) 7.0 2.0-12.0 [facility] HospitalUufjhziGFDZMEERVV8510-76-93 11:21:00 Test Item Value Reference Range Interpretation Comments Lymphocytes (test code = Lymphocytes) 28.8 20.0-40.0 [facility] HospitalNvtxyjdMQFDWVIJNS3168-39-27 11:21:00 Test Item Value Reference Range Interpretation Comments WBC (test code = WBC) 8.8 3.7-10.4 [facility] HospitalJmsjunlHJUBBECQXY3152-07-98 11:21:00 Test Item Value Reference Range Interpretation Comments RBC (test code = RBC) 5.19 4.20-5.40 [facility] HospitalEhialjeRJXVORHTHJ1023-16-55 11:21:00 Test Item Value Reference Range Interpretation Comments Hgb (test code = Hgb) 14.4 12.0-16.0 [facility] HospitalQqdxltcOXVGRUMRDC4626-96-41 11:21:00 Test Item Value Reference Range Interpretation Comments Hct (test code = Hct) 43.1 36.0-48.0 [facility] HospitalKrwornbIRPHBBMZPL7790-77-09 11:21:00 Test Item Value Reference Range Interpretation Comments MCV (test code = MCV) 83.1 80.0-98.0 [facility] HospitalQgjgbpcENGILXZKEH4118-30-53 11:21:00 Test Item Value Reference Range Interpretation Comments MCH (test code = MCH) 27.8 pg 27.0-31.0 [facility] HospitalLwvtgojDCYPGZKRGU9854-07-10 11:21:00 Test Item Value Reference Range Interpretation Comments RDW (test code = RDW) 13.1 11.5-14.5 [facility] HospitalWrsnivlSREGBJSHBK2971-04-88 11:21:00 Test Item Value Reference Range Interpretation Comments MCHC (test code = MCHC) 33.5 32.0-36.0 [facility] HospitalXumfmkfNYKQWSZPTN2698-24-02 11:21:00 Test Item Value Reference Range Interpretation Comments Platelet (test code = Platelet) 201 133-450 [facility] HospitalAcnpkboWIIIIALKVV2988-83-56 11:21:00 Test Item Value Reference Range Interpretation Comments MPV (test code = MPV) 10.4 7.4-10.4 [facility]2015-01-06 11:21:00 Test Item Value Reference Range Interpretation Comments Albumin Lvl (test code = Albumin Lvl) 3.2 3.5-5.0 [facility]2015-01-06 11:21:00 Test Item Value Reference Range Interpretation Comments Total Protein (test code = Total 6.6 6.4-8.4 Protein) [facility]2015-01-06 11:21:00 Test Item Value Reference Range Interpretation Comments Bili Total (test code = Bili Total) 0.6 0.2-1.3 [facility]2015-01-06 11:21:00 Test Item Value Reference Range Interpretation Comments Alk Phos (test code = Alk Phos) 59 39-136 [facility]2015-01-06 11:21:00 Test Item Value Reference Range Interpretation Comments AST (test code = AST) 11 See_Comment [Auto mated message] The system which ge nerated this result transmit rohit reference range : <=37. The reference range was not used to interpr et this result as reji l/abnormal. [facility]2015-01-06 11:21:00 Test Item Value Reference Range Interpretation Comments ALT (test code = ALT) 17 See_Comment [Auto mated message] The system which ge nerated this result transmit rohit reference range : <=65. The reference range was not used to interpr et this result as reji l/abnormal. [facility]2015-01-06 11:21:00 Test Item Value Reference Range Interpretation Comments eGFR (test code = eGFR) 99 [facility]2015-01-06 11:21:00 Test Item Value Reference Range Interpretation Comments Glucose Lvl (test code = Glucose Lvl) 314 70-99 [facility]2015-01-06 11:21:00 Test Item Value Reference Range Interpretation Comments Potassium Lvl (test code = Potassium 3.4 3.5-5.1 Lvl) [facility]2015-01-06 11:21:00 Test Item Value Reference Range Interpretation Comments BUN (test code = BUN) 11 7-22 [facility]2015-01-06 11:21:00 Test Item Value Reference Range Interpretation Comments Creatinine Lvl (test code = Creatinine 0.8 0.5-1.4 Lvl) [facility]2015-01-06 11:21:00 Test Item Value Reference Range Interpretation Comments Sodium Lvl (test code = Sodium Lvl) 134 135-145 [facility]2015-01-06 11:21:00 Test Item Value Reference Range Interpretation Comments Chloride Lvl (test code = Chloride Lvl) 94 95-109 [facility]2015-01-06 11:21:00 Test Item Value Reference Range Interpretation Comments Calcium Lvl (test code = Calcium Lvl) 9.1 8.5-10.5 [facility]2015-01-06 11:21:00 Test Item Value Reference Range Interpretation Comments CO2 (test code = CO2) 24 24-32 [facility]2015-01-06 11:21:00 Test Item Value Reference Range Interpretation Comments A/G Ratio (test code = A/G Ratio) 0.9 0.7-1.6 [facility]2015-01-06 11:21:00 Test Item Value Reference Range Interpretation Comments Globulin (test code = Globulin) 3.4 2.0-4.0 [place] 141205-01-06 11:21:00 Test Item Value Reference Range Interpretation Comments B/C Ratio (test code = B/C Ratio) 14 6-25 [facility]2015-01-06 11:21:00 Test Item Value Reference Range Interpretation Comments AGAP (test code = AGAP) 19.4 10.0-20.0 [facility]2015-01-06 11:21:00 Test Item Value Reference Range Interpretation Comments Lipase Lvl (test code = Lipase Lvl) 81 73-393 [facility] HospitalMajwgkcDZEQIMNHBU0764-96-99 11:21:00 Test Item Value Reference Range Interpretation Comments Large Plt (test code = Large Plt) Slight [facility] HospitalXlshqljTRJQCQSZIJ2377-69-23 11:21:00 Test Item Value Reference Range Interpretation Comments Basophils # (test code 0.0 See_Comment [Aut omated message] The = Basophils #) system which generated this result tra nsmitted reference range : <=0.2. The reference r leo was not used to int erpret this result as normal/abnormal . [facility] HospitalBmjnoopUBVDCBLZGY1037-57-44 11:21:00 Test Item Value Reference Range Interpretation Comments Anisocyte (test code = 1+ *ABN*(06/26/14 5:21 Anisocyte) AM) [facility] HospitalUpiqezhXBXIDVDMZN1255-26-96 11:21:00 Test Item Value Reference Range Interpretation Comments Monocytes # (test code 0.6 See_Comment [Aut omated message] The = Monocytes #) system which generated this result tra nsmitted reference range : <=0.8. The reference r leo was not used to int erpret this result as normal/abnormal . [facility] HospitalOtuerxhIMXAQLJGWZ3824-25-18 11:21:00 Test Item Value Reference Range Interpretation Comments Eosinophils # (test code 0.1 See_Comment [A utomated message] The = Eosinophils #) system whic h generated this result tra nsmitted reference range : <=0.5. The reference r leo was not used to int erpret this result as normal/abnormal . [facility] HospitalAqhuaexAVJNJCVLXW2772-19-55 11:21:00 Test Item Value Reference Range Interpretation Comments Lymphocytes # (test code = Lymphocytes 2.5 1.0-5.5 #) [facility] HospitalDazhcdfWBDSPPUUPL2728-94-30 11:21:00 Test Item Value Reference Range Interpretation Comments Segs (test code = Segs) 63.3 45.0-75.0 [facility] HospitalLslghtcWYDJEWPPZT5624-32-34 11:21:00 Test Item Value Reference Range Interpretation Comments Segs-Bands # (test code = Segs-Bands #) 5.6 1.5-8.1 [facility] HospitalRbylqcvHYFWCGQDAH6984-36-24 11:21:00 Test Item Value Reference Range Interpretation Comments Basophils (test code = 0.0 See_Comment [Aut omated message] The Basophils) system which ge nerated this result tra nsmitted reference range : <=1.0. The reference r leo was not used to int erpret this result as normal/abnormal . [facility] HospitalVohoaevHRVSCGFGRP6534-61-50 11:21:00 Test Item Value Reference Range Interpretation Comments Eosinophils (test code = 0.9 See_Comment [A utomated message] The Eosinophils) system which ge nerated this result tra nsmitted reference range : <=4.0. The reference r leo was not used to int erpret this result as normal/abnormal . [facility] HospitalNfbyhbhJYHNJMGXVG7444-46-16 11:21:00 Test Item Value Reference Range Interpretation Comments Monocytes (test code = Monocytes) 7.0 2.0-12.0 [facility] HospitalBxtdvzwDVVONKCQAH3301-03-76 11:21:00 Test Item Value Reference Range Interpretation Comments Lymphocytes (test code = Lymphocytes) 28.8 20.0-40.0 [facility] HospitalRntkwzyRQYBRCKIQL6575-41-66 11:21:00 Test Item Value Reference Range Interpretation Comments WBC (test code = WBC) 8.8 3.7-10.4 [facility] HospitalAiyotpxABJYCJVPUD9697-03-50 11:21:00 Test Item Value Reference Range Interpretation Comments RBC (test code = RBC) 5.19 4.20-5.40 [facility] HospitalOwojcisZTCGIFCBPQ5227-17-75 11:21:00 Test Item Value Reference Range Interpretation Comments Hgb (test code = Hgb) 14.4 12.0-16.0 [facility] HospitalCeyiefjJMSXZEMZMO1442-37-63 11:21:00 Test Item Value Reference Range Interpretation Comments Hct (test code = Hct) 43.1 36.0-48.0 [facility] HospitalXzapmvuWXIGLGPTUW8037-95-11 11:21:00 Test Item Value Reference Range Interpretation Comments MCV (test code = MCV) 83.1 80.0-98.0 [facility] HospitalQvturjkMZKOMLHFVO7162-74-22 11:21:00 Test Item Value Reference Range Interpretation Comments MCH (test code = MCH) 27.8 pg 27.0-31.0 [facility] HospitalUjxbwepJJXNHIGETQ8329-75-41 11:21:00 Test Item Value Reference Range Interpretation Comments RDW (test code = RDW) 13.1 11.5-14.5 [facility] HospitalUydemhtCGTOLGMLHD8500-93-65 11:21:00 Test Item Value Reference Range Interpretation Comments MCHC (test code = MCHC) 33.5 32.0-36.0 [facility] HospitalDiwbllmEDYKDIFZYP8172-13-98 11:21:00 Test Item Value Reference Range Interpretation Comments Platelet (test code = Platelet) 201 133-450 [facility] HospitalVrwunmlEKECRWVLIB5725-29-45 11:21:00 Test Item Value Reference Range Interpretation Comments MPV (test code = MPV) 10.4 7.4-10.4 [facility]2015-01-06 11:21:00 Test Item Value Reference Range Interpretation Comments Albumin Lvl (test code = Albumin Lvl) 3.2 3.5-5.0 [facility]2015-01-06 11:21:00 Test Item Value Reference Range Interpretation Comments Total Protein (test code = Total 6.6 6.4-8.4 Protein) [facility]2015-01-06 11:21:00 Test Item Value Reference Range Interpretation Comments Bili Total (test code = Bili Total) 0.6 0.2-1.3 [facility]2015-01-06 11:21:00 Test Item Value Reference Range Interpretation Comments Alk Phos (test code = Alk Phos) 59 39-136 [facility]2015-01-06 11:21:00 Test Item Value Reference Range Interpretation Comments AST (test code = AST) 11 See_Comment [Auto mated message] The system which ge nerated this result transmit rohit reference range : <=37. The reference range was not used to interpr et this result as reji l/abnormal. [facility]2015-01-06 11:21:00 Test Item Value Reference Range Interpretation Comments ALT (test code = ALT) 17 See_Comment [Auto mated message] The system which ge nerated this result transmit rohit reference range : <=65. The reference range was not used to interpr et this result as reji l/abnormal. [facility]2015-01-06 11:21:00 Test Item Value Reference Range Interpretation Comments eGFR (test code = eGFR) 99 [facility]2015-01-06 11:21:00 Test Item Value Reference Range Interpretation Comments Glucose Lvl (test code = Glucose Lvl) 314 70-99 [facility]2015-01-06 11:21:00 Test Item Value Reference Range Interpretation Comments Potassium Lvl (test code = Potassium 3.4 3.5-5.1 Lvl) [facility]2015-01-06 11:21:00 Test Item Value Reference Range Interpretation Comments BUN (test code = BUN) 11 7-22 [facility]2015-01-06 11:21:00 Test Item Value Reference Range Interpretation Comments Creatinine Lvl (test code = Creatinine 0.8 0.5-1.4 Lvl) [facility]2015-01-06 11:21:00 Test Item Value Reference Range Interpretation Comments Sodium Lvl (test code = Sodium Lvl) 134 135-145 [facility]2015-01-06 11:21:00 Test Item Value Reference Range Interpretation Comments Chloride Lvl (test code = Chloride Lvl) 94 95-109 [facility]2015-01-06 11:21:00 Test Item Value Reference Range Interpretation Comments Calcium Lvl (test code = Calcium Lvl) 9.1 8.5-10.5 [facility]2015-01-06 11:21:00 Test Item Value Reference Range Interpretation Comments CO2 (test code = CO2) 24 24-32 [facility]2015-01-06 11:21:00 Test Item Value Reference Range Interpretation Comments A/G Ratio (test code = A/G Ratio) 0.9 0.7-1.6 [facility]2015-01-06 11:21:00 Test Item Value Reference Range Interpretation Comments Globulin (test code = Globulin) 3.4 2.0-4.0 [facility]2015-01-06 11:21:00 Test Item Value Reference Range Interpretation Comments B/C Ratio (test code = B/C Ratio) 14 6-25 [facility]2015-01-06 11:21:00 Test Item Value Reference Range Interpretation Comments AGAP (test code = AGAP) 19.4 10.0-20.0 [facility]2015-01-06 11:21:00 Test Item Value Reference Range Interpretation Comments Lipase Lvl (test code = Lipase Lvl) 81 73-393 [facility] HospitalIvtjfzuYRKKQCAAHJ2036-03-85 11:21:00 Test Item Value Reference Range Interpretation Comments Large Plt (test code = Large Plt) Slight [facility] HospitalXpaadizYKYKJWXAIE1135-51-34 11:21:00 Test Item Value Reference Range Interpretation Comments Basophils # (test code 0.0 See_Comment [Aut omated message] The = Basophils #) system which generated this result tra nsmitted reference range : <=0.2. The reference r leo was not used to int erpret this result as normal/abnormal . [facility] HospitalTmnvsmkRHTPFOPTWP0677-98-80 11:21:00 Test Item Value Reference Range Interpretation Comments Anisocyte (test code = 1+ *ABN*(06/26/14 5:21 Anisocyte) AM) [facility] HospitalXbsgfpgMGIAIVLHFD0385-24-74 11:21:00 Test Item Value Reference Range Interpretation Comments Monocytes # (test code 0.6 See_Comment [Aut omated message] The = Monocytes #) system which generated this result tra nsmitted reference range : <=0.8. The reference r leo was not used to int erpret this result as normal/abnormal . [facility] HospitalSbltpbmGEPJWPTNDL1265-93-78 11:21:00 Test Item Value Reference Range Interpretation Comments Eosinophils # (test code 0.1 See_Comment [A utomated message] The = Eosinophils #) system whic h generated this result tra nsmitted reference range : <=0.5. The reference r leo was not used to int erpret this result as normal/abnormal . [facility] HospitalObhtthbAYSBWAGNIA7843-61-86 11:21:00 Test Item Value Reference Range Interpretation Comments Lymphocytes # (test code = Lymphocytes 2.5 1.0-5.5 #) [facility] HospitalXikcyxtDGERTVUMCJ7196-05-74 11:21:00 Test Item Value Reference Range Interpretation Comments Segs (test code = Segs) 63.3 45.0-75.0 [facility] HospitalFvaafhnQJOYYKNNVF1609-16-63 11:21:00 Test Item Value Reference Range Interpretation Comments Segs-Bands # (test code = Segs-Bands #) 5.6 1.5-8.1 [facility] HospitalBxqxpxtMVWTODRXQJ0239-80-83 11:21:00 Test Item Value Reference Range Interpretation Comments Basophils (test code = 0.0 See_Comment [Aut omated message] The Basophils) system which ge nerated this result tra nsmitted reference range : <=1.0. The reference r leo was not used to int erpret this result as normal/abnormal . [facility] HospitalXuuovsjVYXRKWGSXY8031-30-45 11:21:00 Test Item Value Reference Range Interpretation Comments Eosinophils (test code = 0.9 See_Comment [A utomated message] The Eosinophils) system which ge nerated this result tra nsmitted reference range : <=4.0. The reference r leo was not used to int erpret this result as normal/abnormal . [facility] HospitalKrjyknjWTMRKKJWVW7568-16-11 11:21:00 Test Item Value Reference Range Interpretation Comments Monocytes (test code = Monocytes) 7.0 2.0-12.0 [facility] HospitalZdelljuRFDHNPYQRR1790-90-20 11:21:00 Test Item Value Reference Range Interpretation Comments Lymphocytes (test code = Lymphocytes) 28.8 20.0-40.0 [facility] HospitalOvcembvKGNWEWOXYQ9928-36-04 11:21:00 Test Item Value Reference Range Interpretation Comments WBC (test code = WBC) 8.8 3.7-10.4 [facility] HospitalSpunsckGTQEIMDGGV4697-18-19 11:21:00 Test Item Value Reference Range Interpretation Comments RBC (test code = RBC) 5.19 4.20-5.40 [facility] HospitalTtaiqlpAQVSIMTMJP3037-64-55 11:21:00 Test Item Value Reference Range Interpretation Comments Hgb (test code = Hgb) 14.4 12.0-16.0 [facility] HospitalVayvbnsDQCUHRYDWY2836-25-73 11:21:00 Test Item Value Reference Range Interpretation Comments Hct (test code = Hct) 43.1 36.0-48.0 [facility]PmxlioaOEOBREFRER9838-49-75 11:21:00 Test Item Value Reference Range Interpretation Comments MCV (test code = MCV) 83.1 80.0-98.0 [facility] HospitalIzxzxeyKGKLZKAXBC4470-20-20 11:21:00 Test Item Value Reference Range Interpretation Comments MCH (test code = MCH) 27.8 pg 27.0-31.0 [facility] HospitalZuyilkhWEHHRFUUUH7910-50-01 11:21:00 Test Item Value Reference Range Interpretation Comments RDW (test code = RDW) 13.1 11.5-14.5 [facility] HospitalKyrgcafZGYMTRJCNU4868-55-77 11:21:00 Test Item Value Reference Range Interpretation Comments MCHC (test code = MCHC) 33.5 32.0-36.0 [facility] HospitalBcaemvfIGPONCMVXW8379-62-84 11:21:00 Test Item Value Reference Range Interpretation Comments Platelet (test code = Platelet) 201 133-450 [facility] HospitalCqzhwolMZWIHUJRLL0414-11-37 11:21:00 Test Item Value Reference Range Interpretation Comments MPV (test code = MPV) 10.4 7.4-10.4 [facility]2015-01-06 11:21:00 Test Item Value Reference Range Interpretation Comments Albumin Lvl (test code = Albumin Lvl) 3.2 3.5-5.0 [facility]2015-01-06 11:21:00 Test Item Value Reference Range Interpretation Comments Total Protein (test code = Total 6.6 6.4-8.4 Protein) [facility]2015-01-06 11:21:00 Test Item Value Reference Range Interpretation Comments Bili Total (test code = Bili Total) 0.6 0.2-1.3 [facility]2015-01-06 11:21:00 Test Item Value Reference Range Interpretation Comments Alk Phos (test code = Alk Phos) 59 39-136 [facility]2015-01-06 11:21:00 Test Item Value Reference Range Interpretation Comments AST (test code = AST) 11 See_Comment [Auto mated message] The system which ge nerated this result transmit rohit reference range : <=37. The reference range was not used to interpr et this result as reji l/abnormal. [facility]2015-01-06 11:21:00 Test Item Value Reference Range Interpretation Comments ALT (test code = ALT) 17 See_Comment [Auto mated message] The system which ge nerated this result transmit rohit reference range : <=65. The reference range was not used to interpr et this result as reji l/abnormal. [facility]2015-01-06 11:21:00 Test Item Value Reference Range Interpretation Comments eGFR (test code = eGFR) 99 [facility]2015-01-06 11:21:00 Test Item Value Reference Range Interpretation Comments Glucose Lvl (test code = Glucose Lvl) 314 70-99 [facility]2015-01-06 11:21:00 Test Item Value Reference Range Interpretation Comments Potassium Lvl (test code = Potassium 3.4 3.5-5.1 Lvl) [facility]2015-01-06 11:21:00 Test Item Value Reference Range Interpretation Comments BUN (test code = BUN) 11 7-22 [facility]2015-01-06 11:21:00 Test Item Value Reference Range Interpretation Comments Creatinine Lvl (test code = Creatinine 0.8 0.5-1.4 Lvl) [facility]2015-01-06 11:21:00 Test Item Value Reference Range Interpretation Comments Sodium Lvl (test code = Sodium Lvl) 134 135-145 [facility]2015-01-06 11:21:00 Test Item Value Reference Range Interpretation Comments Chloride Lvl (test code = Chloride Lvl) 94 95-109 [facility]2015-01-06 11:21:00 Test Item Value Reference Range Interpretation Comments Calcium Lvl (test code = Calcium Lvl) 9.1 8.5-10.5 [facility]2015-01-06 11:21:00 Test Item Value Reference Range Interpretation Comments CO2 (test code = CO2) 24 24-32 [facility]2015-01-06 11:21:00 Test Item Value Reference Range Interpretation Comments A/G Ratio (test code = A/G Ratio) 0.9 0.7-1.6 [facility]2015-01-06 11:21:00 Test Item Value Reference Range Interpretation Comments Globulin (test code = Globulin) 3.4 2.0-4.0 [facility]2015-01-06 11:21:00 Test Item Value Reference Range Interpretation Comments B/C Ratio (test code = B/C Ratio) 14 6-25 [facility]2015-01-06 11:21:00 Test Item Value Reference Range Interpretation Comments AGAP (test code = AGAP) 19.4 10.0-20.0 [facility]2015-01-06 11:21:00 Test Item Value Reference Range Interpretation Comments Lipase Lvl (test code = Lipase Lvl) 81 73-393 [facility] HospitalWvruveoIFSGTQKKXR8801-77-48 11:21:00 Test Item Value Reference Range Interpretation Comments Large Plt (test code = Large Plt) Slight [facility] HospitalNrrbzxnKDDAFIHONM3469-62-95 11:21:00 Test Item Value Reference Range Interpretation Comments Basophils # (test code 0.0 See_Comment [Aut omated message] The = Basophils #) system which generated this result tra nsmitted reference range : <=0.2. The reference r leo was not used to int erpret this result as normal/abnormal . [facility] HospitalYsbymgoSYRENMGLWO6691-85-47 11:21:00 Test Item Value Reference Range Interpretation Comments Anisocyte (test code = 1+ *ABN*(06/26/14 5:21 Anisocyte) AM) [facility] HospitalFkgshyhHIEUKZINZY6431-15-24 11:21:00 Test Item Value Reference Range Interpretation Comments Monocytes # (test code 0.6 See_Comment [Aut omated message] The = Monocytes #) system which generated this result tra nsmitted reference range : <=0.8. The reference r leo was not used to int erpret this result as normal/abnormal . [facility] HospitalQzpeahlMOMFHOTRSO4159-98-48 11:21:00 Test Item Value Reference Range Interpretation Comments Eosinophils # (test code 0.1 See_Comment [A utomated message] The = Eosinophils #) system whic h generated this result tra nsmitted reference range : <=0.5. The reference r leo was not used to int erpret this result as normal/abnormal . [facility] HospitalIccbjkiWNUZNIPBCR8489-16-76 11:21:00 Test Item Value Reference Range Interpretation Comments Lymphocytes # (test code = Lymphocytes 2.5 1.0-5.5 #) [facility] HospitalZprlnlaLLIIOELPNO7505-09-14 11:21:00 Test Item Value Reference Range Interpretation Comments Segs (test code = Segs) 63.3 45.0-75.0 [facility] HospitalHfryqjcOFOQZJUGEA1833-91-25 11:21:00 Test Item Value Reference Range Interpretation Comments Segs-Bands # (test code = Segs-Bands #) 5.6 1.5-8.1 [facility] HospitalMyeukodOLAUNXYQMB7730-84-81 11:21:00 Test Item Value Reference Range Interpretation Comments Basophils (test code = 0.0 See_Comment [Aut omated message] The Basophils) system which ge nerated this result tra nsmitted reference range : <=1.0. The reference r leo was not used to int erpret this result as normal/abnormal . [facility] HospitalWreqsduMQXSDDFNRX9804-81-42 11:21:00 Test Item Value Reference Range Interpretation Comments Eosinophils (test code = 0.9 See_Comment [A utomated message] The Eosinophils) system which ge nerated this result tra nsmitted reference range : <=4.0. The reference r leo was not used to int erpret this result as normal/abnormal . [facility] HospitalFkmujkeLFTYLXUSYW9813-65-88 11:21:00 Test Item Value Reference Range Interpretation Comments Monocytes (test code = Monocytes) 7.0 2.0-12.0 [facility] HospitalXcgrqrsJMYSLPFCFX0306-30-17 11:21:00 Test Item Value Reference Range Interpretation Comments Lymphocytes (test code = Lymphocytes) 28.8 20.0-40.0 [facility] HospitalFvqrleaSXGRBVNYGB5438-25-85 11:21:00 Test Item Value Reference Range Interpretation Comments WBC (test code = WBC) 8.8 3.7-10.4 [facility] HospitalQlcvxinOSFCQGISGU0918-38-76 11:21:00 Test Item Value Reference Range Interpretation Comments RBC (test code = RBC) 5.19 4.20-5.40 [facility] HospitalPvfkrkiSWEHURWFDD9728-94-22 11:21:00 Test Item Value Reference Range Interpretation Comments Hgb (test code = Hgb) 14.4 12.0-16.0 [facility] HospitalErvjuqmVRVQSSIFCS7642-06-83 11:21:00 Test Item Value Reference Range Interpretation Comments Hct (test code = Hct) 43.1 36.0-48.0 [facility] HospitalLmvgsneEIUAIAWDGV5264-36-07 11:21:00 Test Item Value Reference Range Interpretation Comments MCV (test code = MCV) 83.1 80.0-98.0 [facility] HospitalUqwxhmvLDLLRMXXMV1554-10-29 11:21:00 Test Item Value Reference Range Interpretation Comments MCH (test code = MCH) 27.8 pg 27.0-31.0 [facility] HospitalCcbrpprODMLHGKKAI2898-98-24 11:21:00 Test Item Value Reference Range Interpretation Comments RDW (test code = RDW) 13.1 11.5-14.5 [facility] HospitalVtuubjvPZWBDTECGW8995-86-44 11:21:00 Test Item Value Reference Range Interpretation Comments MCHC (test code = MCHC) 33.5 32.0-36.0 [facility] HospitalOaywtvlZHEUAIAELI6332-28-02 11:21:00 Test Item Value Reference Range Interpretation Comments Platelet (test code = Platelet) 201 133-450 [facility] HospitalTavemxaUJXEHATLNH2582-45-83 11:21:00 Test Item Value Reference Range Interpretation Comments MPV (test code = MPV) 10.4 7.4-10.4 [facility]2015-01-06 11:21:00 Test Item Value Reference Range Interpretation Comments Albumin Lvl (test code = Albumin Lvl) 3.2 3.5-5.0 [facility]2015-01-06 11:21:00 Test Item Value Reference Range Interpretation Comments Total Protein (test code = Total 6.6 6.4-8.4 Protein) [facility]2015-01-06 11:21:00 Test Item Value Reference Range Interpretation Comments Bili Total (test code = Bili Total) 0.6 0.2-1.3 [facility]2015-01-06 11:21:00 Test Item Value Reference Range Interpretation Comments Alk Phos (test code = Alk Phos) 59 39-136 [facility]2015-01-06 11:21:00 Test Item Value Reference Range Interpretation Comments AST (test code = AST) 11 See_Comment [Auto mated message] The system which ge nerated this result transmit rohit reference range : <=37. The reference range was not used to interpr et this result as reji l/abnormal. [facility]2015-01-06 11:21:00 Test Item Value Reference Range Interpretation Comments ALT (test code = ALT) 17 See_Comment [Auto mated message] The system which ge nerated this result transmit rohit reference range : <=65. The reference range was not used to interpr et this result as reji l/abnormal. [facility]2015-01-06 11:21:00 Test Item Value Reference Range Interpretation Comments eGFR (test code = eGFR) 99 [facility]2015-01-06 11:21:00 Test Item Value Reference Range Interpretation Comments Glucose Lvl (test code = Glucose Lvl) 314 70-99 [facility]2015-01-06 11:21:00 Test Item Value Reference Range Interpretation Comments Potassium Lvl (test code = Potassium 3.4 3.5-5.1 Lvl) [facility]2015-01-06 11:21:00 Test Item Value Reference Range Interpretation Comments BUN (test code = BUN) 11 7-22 [facility]2015-01-06 11:21:00 Test Item Value Reference Range Interpretation Comments Creatinine Lvl (test code = Creatinine 0.8 0.5-1.4 Lvl) [facility]2015-01-06 11:21:00 Test Item Value Reference Range Interpretation Comments Sodium Lvl (test code = Sodium Lvl) 134 135-145 [facility]2015-01-06 11:21:00 Test Item Value Reference Range Interpretation Comments Chloride Lvl (test code = Chloride Lvl) 94 95-109 [facility]2015-01-06 11:21:00 Test Item Value Reference Range Interpretation Comments Calcium Lvl (test code = Calcium Lvl) 9.1 8.5-10.5 [facility]2015-01-06 11:21:00 Test Item Value Reference Range Interpretation Comments CO2 (test code = CO2) 24 24-32 [facility]2015-01-06 11:21:00 Test Item Value Reference Range Interpretation Comments A/G Ratio (test code = A/G Ratio) 0.9 0.7-1.6 [facility]2015-01-06 11:21:00 Test Item Value Reference Range Interpretation Comments Globulin (test code = Globulin) 3.4 2.0-4.0 [facility]2015-01-06 11:21:00 Test Item Value Reference Range Interpretation Comments B/C Ratio (test code = B/C Ratio) 14 6-25 [facility]2015-01-06 11:21:00 Test Item Value Reference Range Interpretation Comments AGAP (test code = AGAP) 19.4 10.0-20.0 [facility]2015-01-06 11:21:00 Test Item Value Reference Range Interpretation Comments Lipase Lvl (test code = Lipase Lvl) 81 73-393 [facility] HospitalQezqepjMRSQIMHZOR5310-70-67 11:21:00 Test Item Value Reference Range Interpretation Comments Large Plt (test code = Large Plt) Slight [facility] HospitalAnoffuuHWLESNJZPP8070-52-31 11:21:00 Test Item Value Reference Range Interpretation Comments Basophils # (test code 0.0 See_Comment [Aut omated message] The = Basophils #) system which generated this result tra nsmitted reference range : <=0.2. The reference r leo was not used to int erpret this result as normal/abnormal . [facility] HospitalFfdanlnYCCSHCKFAJ1018-48-91 11:21:00 Test Item Value Reference Range Interpretation Comments Anisocyte (test code = 1+ *ABN*(06/26/14 5:21 Anisocyte) AM) [facility] HospitalZaeuhqhLRUSIXMFST3635-08-03 11:21:00 Test Item Value Reference Range Interpretation Comments Monocytes # (test code 0.6 See_Comment [Aut omated message] The = Monocytes #) system which generated this result tra nsmitted reference range : <=0.8. The reference r leo was not used to int erpret this result as normal/abnormal . [facility] HospitalBbzpvfzNLQSLTNKKM5995-88-95 11:21:00 Test Item Value Reference Range Interpretation Comments Eosinophils # (test code 0.1 See_Comment [A utomated message] The = Eosinophils #) system whic h generated this result tra nsmitted reference range : <=0.5. The reference r leo was not used to int erpret this result as normal/abnormal . [facility] HospitalPcwbzaeUOGVHXTTYA1727-02-72 11:21:00 Test Item Value Reference Range Interpretation Comments Lymphocytes # (test code = Lymphocytes 2.5 1.0-5.5 #) [facility] HospitalCyoazxzAMJJTRKKDP8608-34-74 11:21:00 Test Item Value Reference Range Interpretation Comments Segs (test code = Segs) 63.3 45.0-75.0 [facility] HospitalZtimegjWAVCGARGOI4510-86-28 11:21:00 Test Item Value Reference Range Interpretation Comments Segs-Bands # (test code = Segs-Bands #) 5.6 1.5-8.1 [facility] HospitalDctfwqbBQTNQFNTSH1530-99-19 11:21:00 Test Item Value Reference Range Interpretation Comments Basophils (test code = 0.0 See_Comment [Aut omated message] The Basophils) system which ge nerated this result tra nsmitted reference range : <=1.0. The reference r leo was not used to int erpret this result as normal/abnormal . [facility] HospitalKmnivpdTHPKKQAVLQ0411-13-80 11:21:00 Test Item Value Reference Range Interpretation Comments Eosinophils (test code = 0.9 See_Comment [A utomated message] The Eosinophils) system which ge nerated this result tra nsmitted reference range : <=4.0. The reference r leo was not used to int erpret this result as normal/abnormal . [facility] HospitalLapvutbRXFEUAVVWA0583-61-68 11:21:00 Test Item Value Reference Range Interpretation Comments Monocytes (test code = Monocytes) 7.0 2.0-12.0 [facility] HospitalLewklxbHYLILQFACB9567-77-60 11:21:00 Test Item Value Reference Range Interpretation Comments Lymphocytes (test code = Lymphocytes) 28.8 20.0-40.0 [facility] HospitalCkbaupmYUCDWLSKHG8285-93-55 11:21:00 Test Item Value Reference Range Interpretation Comments WBC (test code = WBC) 8.8 3.7-10.4 [facility] HospitalFnhijfeWRWYNSSKTN4114-18-21 11:21:00 Test Item Value Reference Range Interpretation Comments RBC (test code = RBC) 5.19 4.20-5.40 [facility] HospitalQuudhfnXHWKZRCVUD6552-08-58 11:21:00 Test Item Value Reference Range Interpretation Comments Hgb (test code = Hgb) 14.4 12.0-16.0 [facility] HospitalDpauzrcYJHQSSYHOU6483-67-40 11:21:00 Test Item Value Reference Range Interpretation Comments Hct (test code = Hct) 43.1 36.0-48.0 [facility] HospitalSxsmuuxJEMACBTLGH7249-34-03 11:21:00 Test Item Value Reference Range Interpretation Comments MCV (test code = MCV) 83.1 80.0-98.0 [facility] HospitalQdurpjuOPEKQVGHRE3155-14-91 11:21:00 Test Item Value Reference Range Interpretation Comments MCH (test code = MCH) 27.8 pg 27.0-31.0 [facility] HospitalMaerjrgQSVUEBLDER9731-05-89 11:21:00 Test Item Value Reference Range Interpretation Comments RDW (test code = RDW) 13.1 11.5-14.5 [facility] HospitalOqjzpcqDEHIJPSVAL1885-44-11 11:21:00 Test Item Value Reference Range Interpretation Comments MCHC (test code = MCHC) 33.5 32.0-36.0 [facility] HospitalHtrjidhDLIPBOFYTV8221-15-14 11:21:00 Test Item Value Reference Range Interpretation Comments Platelet (test code = Platelet) 201 133-450 [facility] HospitalHkeqdctLTFFNXHNYN3731-40-47 11:21:00 Test Item Value Reference Range Interpretation Comments MPV (test code = MPV) 10.4 7.4-10.4 [facility]ByfcczeIPVITKCQOH8178-88-88 04:48:55 Test Item Value Reference Range Interpretation Comments UA [place] Yeast (test code = UA Occasional /HPF A [place] Yeast) [facility] CenterDwblajcHOJTDWAZKF3181-24-84 04:48:55 Test Item Value Reference Range Interpretation Comments UA Mucus (test code = UA Mucus) Few /LPF N [facility] CenterXcqiumbMBMUBCWJCO9772-22-18 04:48:55 Test Item Value Reference Range Interpretation Comments UA Sq Epi (test code = UA Sq Moderate /LPF A Epi) [facility] CenterEuvhbqzABMMFZGAKN2212-40-54 04:48:55 Test Item Value Reference Range Interpretation Comments Micro? (test code = Performed (04/14/2013 N Micro?) 23:48:55) [facility] CenterBejelrhDBPEHHJNUB7968-84-62 04:48:55 Test Item Value Reference Range Interpretation Comments UA WBC (test code = UA WBC) 0-2 /HPF N [facility] CenterOrsneoyYIQBSDEMLG7681-17-41 04:48:55 Test Item Value Reference Range Interpretation Comments UA Bacteria (test code = UA Occasional /HPF N Bacteria) [facility] CenterDjhhiksGRCCROMXXT2470-10-62 04:48:55 Test Item Value Reference Range Interpretation Comments UA Glucose (test code = UA Glucose) 500 mg/dL A [facility] CenterBodnrsyGKNMIOMMFC8261-95-45 04:48:55 Test Item Value Reference Range Interpretation Comments UA Bili (test code = Negative *NA*(04/14/2013 UA Bili) 23:48:55) [facility] CenterPufyavqFNHPCWMKOG5178-50-32 04:48:55 Test Item Value Reference Range Interpretation Comments UA Ketones (test code = Trace A UA Ketones) *ABN*(04/14/2013 23:48:55) [facility] CenterWyqlqwcOFTXCLUQSH2447-19-38 04:48:55 Test Item Value Reference Range Interpretation Comments UA Blood (test code = Negative (04/14/2013 N UA Blood) 23:48:55) [facility] CenterSpmbtgoNLNRQJUYOY5184-79-76 04:48:55 Test Item Value Reference Range Interpretation Comments UA Urobilinogen (test code = UA 0.2 0.1-1.0 N Urobilinogen) [facility] CenterCgorzkdKOAUWBXQSA7411-60-03 04:48:55 Test Item Value Reference Range Interpretation Comments UA Nitrite (test code Negative (04/14/2013 N = UA Nitrite) 23:48:55) [facility] CenterOmlsgvwVWGOECOUDG3356-97-60 04:48:55 Test Item Value Reference Range Interpretation Comments UA Leuk Est (test Negative (04/14/2013 N code = UA Leuk Est) 23:48:55) [facility] CenterNgecyosSAZIGPCQXD5504-47-26 04:48:55 Test Item Value Reference Range Interpretation Comments UA Turbidity (test code = Clear (04/14/2013 N UA Turbidity) 23:48:55) [facility] CenterGcirgpaRSINIOJTPF4595-26-07 04:48:55 Test Item Value Reference Range Interpretation Comments UA Color (test code = Yellow *NA*(04/14/2013 UA Color) 23:48:55) [facility] CenterCossvkgLFPHJLNDEA1584-12-83 04:48:55 Test Item Value Reference Range Interpretation Comments UA pH (test code = UA pH) 7.0 1 5.0-8.0 N [facility] CenterJavwjvwKITNSQFLBO1643-91-14 04:48:55 Test Item Value Reference Range Interpretation Comments UA Spec Grav (test code = UA Spec 1.025 1 N Grav) [facility] CenterYiwpehcSIILCUNFGS5666-99-92 04:48:55 Test Item Value Reference Range Interpretation Comments UA Protein (test code = Trace A UA Protein) *ABN*(04/14/2013 23:48:55) [facility] CenterXjjonfiYRIPKQHUZD1505-03-80 04:48:55 Test Item Value Reference Range Interpretation Comments UA [place] Yeast (test code = UA Occasional /HPF A [place] Yeast) [facility] CenterMskwpyvCPXBUBBEQD4864-11-00 04:48:55 Test Item Value Reference Range Interpretation Comments UA Mucus (test code = UA Mucus) Few /LPF N [facility] CenterErqqdlgZAJIPCLKSK8325-46-87 04:48:55 Test Item Value Reference Range Interpretation Comments UA Sq Epi (test code = UA Sq Moderate /LPF A Epi) [facility] CenterFszdsniUVNOFBFOWW9681-16-04 04:48:55 Test Item Value Reference Range Interpretation Comments Micro? (test code = Performed (04/14/2013 N Micro?) 23:48:55) [facility] CenterByqahzaLVSWQEQLVI2188-57-71 04:48:55 Test Item Value Reference Range Interpretation Comments UA WBC (test code = UA WBC) 0-2 /HPF N [facility] CenterWwneladKZSUNDEEVH9316-10-33 04:48:55 Test Item Value Reference Range Interpretation Comments UA Bacteria (test code = UA Occasional /HPF N Bacteria) [facility] CenterXgssbrkLWXBQKWCVO9431-25-45 04:48:55 Test Item Value Reference Range Interpretation Comments UA Glucose (test code = UA Glucose) 500 mg/dL A [facility] CenterVnbuxxkIJGQMTXHQM1576-41-00 04:48:55 Test Item Value Reference Range Interpretation Comments UA Bili (test code = Negative *NA*(04/14/2013 UA Bili) 23:48:55) [facility] CenterQlasqymNJZMWMQUBE4866-73-98 04:48:55 Test Item Value Reference Range Interpretation Comments UA Ketones (test code = Trace A UA Ketones) *ABN*(04/14/2013 23:48:55) [facility] CenterLtlgqdnNFKREMOKBN1956-46-46 04:48:55 Test Item Value Reference Range Interpretation Comments UA Blood (test code = Negative (04/14/2013 N UA Blood) 23:48:55) [facility] CenterOxghrnvJVOBEWZERP5385-51-86 04:48:55 Test Item Value Reference Range Interpretation Comments UA Urobilinogen (test code = UA 0.2 0.1-1.0 N Urobilinogen) [facility] CenterZtuvxubVJMRSQMYQD6662-84-36 04:48:55 Test Item Value Reference Range Interpretation Comments UA Nitrite (test code Negative (04/14/2013 N = UA Nitrite) 23:48:55) [facility] CenterRzydocdFTRMBMHNOK0997-68-31 04:48:55 Test Item Value Reference Range Interpretation Comments UA Leuk Est (test Negative (04/14/2013 N code = UA Leuk Est) 23:48:55) [facility] CenterZqtdouwLCLFMIQPOB5998-33-08 04:48:55 Test Item Value Reference Range Interpretation Comments UA Turbidity (test code = Clear (04/14/2013 N UA Turbidity) 23:48:55) [facility] CenterQdbomutUEDKXVDELL4083-94-82 04:48:55 Test Item Value Reference Range Interpretation Comments UA Color (test code = Yellow *NA*(04/14/2013 UA Color) 23:48:55) [facility] CenterPoxerfgOUEHRTFJCG9026-42-48 04:48:55 Test Item Value Reference Range Interpretation Comments UA pH (test code = UA pH) 7.0 1 5.0-8.0 N [facility] CenterArokobmAQSAKGIFUU4864-09-40 04:48:55 Test Item Value Reference Range Interpretation Comments UA Spec Grav (test code = UA Spec 1.025 1 N Grav) [facility] CenterDuumdehTTAGORLCGX9471-02-03 04:48:55 Test Item Value Reference Range Interpretation Comments UA Protein (test code = Trace A UA Protein) *ABN*(04/14/2013 23:48:55) [facility] CenterVkkmxqiOHAIQAHQFE0289-68-13 04:48:55 Test Item Value Reference Range Interpretation Comments UA [place] Yeast (test code = UA Occasional /HPF A [place] Yeast) [facility] CenterHssuiekVRGNAGCPQI8963-64-00 04:48:55 Test Item Value Reference Range Interpretation Comments UA Mucus (test code = UA Mucus) Few /LPF N [facility] CenterJtyzcsxMYJGZALPRG7884-04-43 04:48:55 Test Item Value Reference Range Interpretation Comments UA Sq Epi (test code = UA Sq Moderate /LPF A Epi) [facility] CenterWmuhmcdUZGECDCTZJ2030-85-29 04:48:55 Test Item Value Reference Range Interpretation Comments Micro? (test code = Performed (04/14/2013 N Micro?) 23:48:55) [facility] CenterVpysxvyGZTMKCDTKC4198-60-93 04:48:55 Test Item Value Reference Range Interpretation Comments UA WBC (test code = UA WBC) 0-2 /HPF N [facility] CenterXaoovwuSTRNBLVHIC3774-83-51 04:48:55 Test Item Value Reference Range Interpretation Comments UA Bacteria (test code = UA Occasional /HPF N Bacteria) [facility] CenterEgjhqviEBWZIIAYXN7361-18-32 04:48:55 Test Item Value Reference Range Interpretation Comments UA Glucose (test code = UA Glucose) 500 mg/dL [facility]RpaihnmQRZPRJVNFV4136-45-47 04:48:55 Test Item Value Reference Range Interpretation Comments UA Bili (test code = Negative *NA*(04/14/2013 UA Bili) 23:48:55) [facility] CenterQpreoirYTXEGAWRQK8332-36-33 04:48:55 Test Item Value Reference Range Interpretation Comments UA Ketones (test code = Trace A UA Ketones) *ABN*(04/14/2013 23:48:55) [facility] CenterZtujvnqZOUKXZVUOR5408-61-65 04:48:55 Test Item Value Reference Range Interpretation Comments UA Blood (test code = Negative (04/14/2013 N UA Blood) 23:48:55) [facility] CenterZcokvxzJZHADFKNAD7607-87-22 04:48:55 Test Item Value Reference Range Interpretation Comments UA Urobilinogen (test code = UA 0.2 0.1-1.0 N Urobilinogen) [facility] CenterAgminhiSMMKABQTIY9971-03-15 04:48:55 Test Item Value Reference Range Interpretation Comments UA Nitrite (test code Negative (04/14/2013 N = UA Nitrite) 23:48:55) [facility] CenterQmyvfqtSUORAFECNE6400-46-40 04:48:55 Test Item Value Reference Range Interpretation Comments UA Leuk Est (test Negative (04/14/2013 N code = UA Leuk Est) 23:48:55) [facility] CenterQvjuzstKVGQLTMHIU7045-30-90 04:48:55 Test Item Value Reference Range Interpretation Comments UA Turbidity (test code = Clear (04/14/2013 N UA Turbidity) 23:48:55) [facility] CenterLwqvzdjQJKJIPIAEW9298-59-39 04:48:55 Test Item Value Reference Range Interpretation Comments UA Color (test code = Yellow *NA*(04/14/2013 UA Color) 23:48:55) [facility] CenterNzqrdprBORQZNTLRC2637-72-38 04:48:55 Test Item Value Reference Range Interpretation Comments UA pH (test code = UA pH) 7.0 1 5.0-8.0 N [facility] CenterWrmuayiFYLYKONOFO4697-41-58 04:48:55 Test Item Value Reference Range Interpretation Comments UA Spec Grav (test code = UA Spec 1.025 1 N Grav) [facility] CenterOvjcaczWIQJYPKJGM2618-27-22 04:48:55 Test Item Value Reference Range Interpretation Comments UA Protein (test code = Trace A UA Protein) *ABN*(04/14/2013 23:48:55) [facility] CenterPulkhvyVVCTBZNDDH7410-73-20 04:48:55 Test Item Value Reference Range Interpretation Comments UA [place] Yeast (test code = UA Occasional /HPF A [place] Yeast) [facility] CenterKcqmngnQCNFCFLUJD8746-87-00 04:48:55 Test Item Value Reference Range Interpretation Comments UA Mucus (test code = UA Mucus) Few /LPF N [facility] CenterMiitmynCDTZIAENVD7391-78-38 04:48:55 Test Item Value Reference Range Interpretation Comments UA Sq Epi (test code = UA Sq Moderate /LPF A Epi) [facility] CenterAmsqofqJXHEZIMTDX5185-69-68 04:48:55 Test Item Value Reference Range Interpretation Comments Micro? (test code = Performed (04/14/2013 N Micro?) 23:48:55) [facility] CenterTlyzwniCLYRYASSCS7225-11-39 04:48:55 Test Item Value Reference Range Interpretation Comments UA WBC (test code = UA WBC) 0-2 /HPF N [facility] CenterWywnpygLVIQTLEZIP2666-77-88 04:48:55 Test Item Value Reference Range Interpretation Comments UA Bacteria (test code = UA Occasional /HPF N Bacteria) [facility] CenterGfnsiyzQPOJUZZDGJ5169-15-27 04:48:55 Test Item Value Reference Range Interpretation Comments UA Glucose (test code = UA Glucose) 500 mg/dL A [facility] CenterYmypvenCFMXNJFBQQ0644-07-53 04:48:55 Test Item Value Reference Range Interpretation Comments UA Bili (test code = Negative *NA*(04/14/2013 UA Bili) 23:48:55) [facility] CenterAschmsaMYNHIWWHQQ0290-78-70 04:48:55 Test Item Value Reference Range Interpretation Comments UA Ketones (test code = Trace A UA Ketones) *ABN*(04/14/2013 23:48:55) [facility] CenterCqwztrqWXIZZEMNIH8505-81-52 04:48:55 Test Item Value Reference Range Interpretation Comments UA Blood (test code = Negative (04/14/2013 N UA Blood) 23:48:55) [facility] CenterMqsnbimEQVAZYKSTE3071-18-46 04:48:55 Test Item Value Reference Range Interpretation Comments UA Urobilinogen (test code = UA 0.2 0.1-1.0 N Urobilinogen) [facility] CenterDjvynuaUIBGUPFFVV5815-33-59 04:48:55 Test Item Value Reference Range Interpretation Comments UA Nitrite (test code Negative (04/14/2013 N = UA Nitrite) 23:48:55) [facility] CenterGamueqtKCTLJKSQHO1132-35-99 04:48:55 Test Item Value Reference Range Interpretation Comments UA Leuk Est (test Negative (04/14/2013 N code = UA Leuk Est) 23:48:55) [facility] CenterIsuezdcOYMZRAQLYN7887-04-36 04:48:55 Test Item Value Reference Range Interpretation Comments UA Turbidity (test code = Clear (04/14/2013 N UA Turbidity) 23:48:55) [facility] CenterYstfnkyWIOCYZVBSW6622-59-05 04:48:55 Test Item Value Reference Range Interpretation Comments UA Color (test code = Yellow *NA*(04/14/2013 UA Color) 23:48:55) [facility] CenterRdndmfpTXCTPARKAM0216-85-51 04:48:55 Test Item Value Reference Range Interpretation Comments UA pH (test code = UA pH) 7.0 1 5.0-8.0 N [facility] CenterTwnzcgvSVWFEIETZF3737-49-37 04:48:55 Test Item Value Reference Range Interpretation Comments UA Spec Grav (test code = UA Spec 1.025 1 N Grav) [facility] CenterQgdxdfuFTVDSAJAJS4402-00-07 04:48:55 Test Item Value Reference Range Interpretation Comments UA Protein (test code = Trace A UA Protein) *ABN*(04/14/2013 23:48:55) [facility] CenterPkrvglaVKCGSZBBTK3609-05-93 04:48:55 Test Item Value Reference Range Interpretation Comments UA [place] Yeast (test code = UA Occasional /HPF A [place] Yeast) [facility] CenterShrjyriMCAFIDZONB6268-47-30 04:48:55 Test Item Value Reference Range Interpretation Comments UA Mucus (test code = UA Mucus) Few /LPF N [facility] CenterRdsajtrBKCKIGNVGE3092-24-82 04:48:55 Test Item Value Reference Range Interpretation Comments UA Sq Epi (test code = UA Sq Moderate /LPF A Epi) [facility] CenterEsnaszgSPHAMYZKIR4435-93-00 04:48:55 Test Item Value Reference Range Interpretation Comments Micro? (test code = Performed (04/14/2013 N Micro?) 23:48:55) [facility] CenterYekufupPQYHOVLELK9217-74-62 04:48:55 Test Item Value Reference Range Interpretation Comments UA WBC (test code = UA WBC) 0-2 /HPF N [facility] CenterJrwtoniGQGUSJKRND0488-09-89 04:48:55 Test Item Value Reference Range Interpretation Comments UA Bacteria (test code = UA Occasional /HPF N Bacteria) [facility] CenterOixjguzRSYTIWQPFG4020-46-23 04:48:55 Test Item Value Reference Range Interpretation Comments UA Glucose (test code = UA Glucose) 500 mg/dL A [facility] CenterEgpuxarERQGBGNWDU8818-13-65 04:48:55 Test Item Value Reference Range Interpretation Comments UA Bili (test code = Negative *NA*(04/14/2013 UA Bili) 23:48:55) [facility] CenterSzrhikgYQAUQCHPCV4943-47-51 04:48:55 Test Item Value Reference Range Interpretation Comments UA Ketones (test code = Trace A UA Ketones) *ABN*(04/14/2013 23:48:55) [facility] CenterJotrtcjLIDZTIJPHX8796-71-66 04:48:55 Test Item Value Reference Range Interpretation Comments UA Blood (test code = Negative (04/14/2013 N UA Blood) 23:48:55) [facility] CenterAbxdwruHXSRIXPDKJ6469-39-49 04:48:55 Test Item Value Reference Range Interpretation Comments UA Urobilinogen (test code = UA 0.2 0.1-1.0 N Urobilinogen) [facility] CenterKuqgropDZVAWEIMJJ6345-26-55 04:48:55 Test Item Value Reference Range Interpretation Comments UA Nitrite (test code Negative (04/14/2013 N = UA Nitrite) 23:48:55) [facility]YcwvsxxDITUWVXWJY3721-23-01 04:48:55 Test Item Value Reference Range Interpretation Comments UA Leuk Est (test Negative (04/14/2013 N code = UA Leuk Est) 23:48:55) [facility]HnplvrvMGJMMKFBXH5834-93-92 04:48:55 Test Item Value Reference Range Interpretation Comments UA Turbidity (test code = Clear (04/14/2013 N UA Turbidity) 23:48:55) [facility]WjcfrpjIKDQXCQVMH4922-66-55 04:48:55 Test Item Value Reference Range Interpretation Comments UA Color (test code = Yellow *NA*(04/14/2013 UA Color) 23:48:55) [facility] CenterWfwwaopKDDIUWWSER5750-00-34 04:48:55 Test Item Value Reference Range Interpretation Comments UA pH (test code = UA pH) 7.0 1 5.0-8.0 N [facility] CenterUtrkhblYWAXDHRWKT6827-95-43 04:48:55 Test Item Value Reference Range Interpretation Comments UA Spec Grav (test code = UA Spec 1.025 1 N Grav) [facility] CenterHjcihmdVIPEAHZGWQ4767-56-99 04:48:55 Test Item Value Reference Range Interpretation Comments UA Protein (test code = Trace A UA Protein) *ABN*(04/14/2013 23:48:55) [facility] CenterHswufcbQVVWQRSZY2874-39-99 04:28:00 Test Item Value Reference Range Interpretation Comments S Preg (test code = S Negative *NA*(04/14/2013 Preg) 23:28:00) [facility] CenterVvygyijJGFVGDUOQ3316-65-44 04:28:00 Test Item Value Reference Range Interpretation Comments Lipase Lvl (test code = Lipase Lvl) 233 73393 N [facility] CenterVqmlzvuJOGBNEUEU2042-42-14 04:28:00 Test Item Value Reference Range Interpretation Comments Globulin (test code = Globulin) 4.1 2.0-4.0 H [facility] CenterLggyadqLAKUFJQAH8329-73-57 04:28:00 Test Item Value Reference Range Interpretation Comments AGAP (test code = AGAP) 10.5 10.0-20.0 N [facility] CenterDtdemkdBIOYVRFPM0849-41-96 04:28:00 Test Item Value Reference Range Interpretation Comments B/C Ratio (test code = B/C Ratio) 6 6-25 N [facility] CenterZznrtrpNSJXFBNXV7570-72-30 04:28:00 Test Item Value Reference Range Interpretation Comments A/G Ratio (test code = A/G Ratio) 0.7 0.7-1.6 N [facility] CenterSgvshjgJQMHBDPMB7367-32-80 04:28:00 Test Item Value Reference Range Interpretation Comments eGFR (test code = eGFR) 130 [facility] CenterSwxtrlqCQDOQJURP1595-15-76 04:28:00 Test Item Value Reference Range Interpretation Comments Albumin Lvl (test code = Albumin Lvl) 2.9 3.5-5.0 L [facility] CenterUcakwsxENHNZVWIK2666-38-98 04:28:00 Test Item Value Reference Range Interpretation Comments ASPARTATE TRANSAMINASE 20 See_Comment N [Aut omated message] (test code = ASPARTATE The s ystem which TRANSAMINASE) generated this result transmitted ref erence range: <=37. Th e reference range was not used to interpr et this result as normal/abnormal . [facility] CenterQlymsnhPPUQDLSXI5540-43-50 04:28:00 Test Item Value Reference Range Interpretation Comments Bili Total (test code = Bili Total) 0.5 0.2-1.3 N [facility] CenterVkowdqpHXJTCMHFH3849-15-42 04:28:00 Test Item Value Reference Range Interpretation Comments Alk Phos (test code = Alk Phos) 89 39-136 N [facility] CenterRqoyzhhDCLIHBKXI5506-39-32 04:28:00 Test Item Value Reference Range Interpretation Comments ALANINE AMINOTRANSFERASE 11 See_Comment N [A utomated message] (test code = ALANINE The sys tem which AMINOTRANSFERASE) generated this result transmitted ref erence range: <=65. Th e reference range was not used to int erpret this result as normal/abnormal . [facility] CenterApfapjbKSSMHBHCW4184-53-10 04:28:00 Test Item Value Reference Range Interpretation Comments Creatinine Lvl (test code = Creatinine 0.5 0.5-1.4 N Lvl) [facility] CenterJopzbexSJAQVHXEB5410-88-49 04:28:00 Test Item Value Reference Range Interpretation Comments BUN (test code = BUN) 3 7-22 L [facility] CenterJzlfkutPQJTYMEHU6987-43-61 04:28:00 Test Item Value Reference Range Interpretation Comments Glucose Lvl (test code = Glucose Lvl) 255 70-99 H [facility] CenterFhtjpjiOFDREGCET0263-29-45 04:28:00 Test Item Value Reference Range Interpretation Comments Total Protein (test code = Total 7.0 6.4-8.4 N Protein) [facility] CenterVkmdvvuEEEERBUPE3916-48-57 04:28:00 Test Item Value Reference Range Interpretation Comments Calcium Lvl (test code = Calcium Lvl) 8.7 8.5-10.5 N [facility] CenterJqmacufZSEZETUHI6529-02-66 04:28:00 Test Item Value Reference Range Interpretation Comments CO2 (test code = CO2) 29 24-32 N [facility] CenterFqxukifMAGFMVAOA7363-04-77 04:28:00 Test Item Value Reference Range Interpretation Comments Chloride Lvl (test code = Chloride Lvl) 104 95-109 N [facility] CenterEatcjvqADZSMTELT5574-14-53 04:28:00 Test Item Value Reference Range Interpretation Comments Potassium Lvl (test code = Potassium 3.5 3.5-5.1 N Lvl) [facility] CenterJtunbunDWTNSBYNE2993-05-94 04:28:00 Test Item Value Reference Range Interpretation Comments Sodium Lvl (test code = Sodium Lvl) 140 135-145 N [facility]WvxumzjCFBMSTFNEY4557-43-81 04:28:00 Test Item Value Reference Range Interpretation Comments PROTIME (test code = PROTIME) 12.1 s 12.0-14.7 N [facility] HospitalEoxdcmtITATPUTHEE7802-88-54 04:28:00 Test Item Value Reference Range Interpretation Comments aPTT (test code = aPTT) 39.0 s 22.9-35.8 H [facility] HospitalAkhsjluLSFAUBBPYE1344-86-16 04:28:00 Test Item Value Reference Range Interpretation Comments INR (test code = INR) 0.90 0.85-1.17 N [facility] HospitalYdkxjqwFYXQIJUYAW3573-18-42 04:28:00 Test Item Value Reference Range Interpretation Comments MCH (test code = MCH) 29.4 pg 27.0-31.0 N [facility] HospitalHqyuektDIBPCRENWH3420-90-90 04:28:00 Test Item Value Reference Range Interpretation Comments MCV (test code = MCV) 86.1 81.0-99.0 N [facility] HospitalXmubhtqXVDMVNAQYM2555-95-52 04:28:00 Test Item Value Reference Range Interpretation Comments Hct (test code = Hct) 29.4 36.0-48.0 L [facility] HospitalCreklzaSRCZCLSAGL8602-21-42 04:28:00 Test Item Value Reference Range Interpretation Comments RDW (test code = RDW) 14.0 11.5-14.5 N [facility] HospitalWrzntcdCJRIVCXBBW3074-88-65 04:28:00 Test Item Value Reference Range Interpretation Comments WBC X 10x3 (test code = WBC X 10x3) 6.2 3.7-10.4 N [facility] HospitalYlmllxvFYXCGJBNVO6765-08-28 04:28:00 Test Item Value Reference Range Interpretation Comments Platelet (test code = Platelet) 178 133-450 N [facility] HospitalQeuzvzgUTLWLSVRPY6848-67-75 04:28:00 Test Item Value Reference Range Interpretation Comments MCHC (test code = MCHC) 34.1 32.0-36.0 N [facility] HospitalDkxcbrfDMWKWUWLVG3630-96-96 04:28:00 Test Item Value Reference Range Interpretation Comments RBC X 10x6 (test code = RBC X 10x6) 3.41 4.20-5.40 L [facility] HospitalQvagifhIGFLRSUGRO4739-13-09 04:28:00 Test Item Value Reference Range Interpretation Comments Hgb (test code = Hgb) 10.0 12.0-16.0 L [facility] HospitalIrzxtezGVUEKUKPKO5744-86-91 04:28:00 Test Item Value Reference Range Interpretation Comments MPV (test code = MPV) 10.1 7.4-10.4 N [facility] HospitalYlbropnMSHLGZKAKO6246-93-18 04:28:00 Test Item Value Reference Range Interpretation Comments Segs-Bands # (test code = Segs-Bands #) 4.4 1.5-8.1 N [facility] HospitalHsnpcqwOWDVUQIRKH2420-75-04 04:28:00 Test Item Value Reference Range Interpretation Comments Basophils (test code = 0.7 See_Comment N [Aut omated message] The Basophils) system which ge nerated this result tra nsmitted reference range : <=1.0. The reference r leo was not used to int erpret this result as normal/abnormal . [facility] HospitalCfbpmagUBWVNXULTL3236-15-53 04:28:00 Test Item Value Reference Range Interpretation Comments Segs (test code = Segs) 70.7 45.0-75.0 N [facility] HospitalJlhsbttCIGQPAQTCO1125-86-98 04:28:00 Test Item Value Reference Range Interpretation Comments Monocytes # (test code 0.3 See_Comment N [Aut omated message] The = Monocytes #) system which generated this result tra nsmitted reference range : <=0.8. The reference r leo was not used to int erpret this result as normal/abnormal . [facility] HospitalZsowrgfWZEZQVUFXD7251-74-01 04:28:00 Test Item Value Reference Range Interpretation Comments Lymphocytes # (test code = Lymphocytes 1.2 1.0-5.5 N #) [facility] HospitalFbvzdjiTLFOEVUJWI6067-81-87 04:28:00 Test Item Value Reference Range Interpretation Comments Monocytes (test code = Monocytes) 4.5 2.0-12.0 N [facility] HospitalZsaegwlHVHZVKKBFU8361-99-41 04:28:00 Test Item Value Reference Range Interpretation Comments Eosinophils (test code = 4.1 See_Comment H [A utomated message] The Eosinophils) system which ge nerated this result tra nsmitted reference range : <=4.0. The reference r leo was not used to int erpret this result as normal/abnormal . [facility] HospitalJrwcmazIXLECMWLMH7934-30-92 04:28:00 Test Item Value Reference Range Interpretation Comments Lymphocytes (test code = Lymphocytes) 20.0 20.0-40.0 N [facility] HospitalIxozhgdWOVAVVCZIQ8606-73-15 04:28:00 Test Item Value Reference Range Interpretation Comments Basophils # (test code 0.0 See_Comment N [Aut omated message] The = Basophils #) system which generated this result tra nsmitted reference range : <=0.2. The reference r leo was not used to int erpret this result as normal/abnormal . [facility] HospitalWepvuqeFAYEISHJUO3539-12-30 04:28:00 Test Item Value Reference Range Interpretation Comments Eosinophils # (test code 0.3 See_Comment N [A utomated message] The = Eosinophils #) system whic h generated this result tra nsmitted reference range : <=0.5. The reference r leo was not used to int erpret this result as normal/abnormal . [facility] CenterYamkguyWSGPHMWKD8270-31-22 04:28:00 Test Item Value Reference Range Interpretation Comments S Preg (test code = S Negative *NA*(04/14/2013 Preg) 23:28:00) [facility] CenterXykjgwhLNQQVSBSL9942-89-27 04:28:00 Test Item Value Reference Range Interpretation Comments Lipase Lvl (test code = Lipase Lvl) 233 73-393 N [facility] CenterBpxqvlySKILFJVGA7800-60-57 04:28:00 Test Item Value Reference Range Interpretation Comments Globulin (test code = Globulin) 4.1 2.0-4.0 H [facility] CenterFqvevywHNJOPCLGV7756-12-34 04:28:00 Test Item Value Reference Range Interpretation Comments AGAP (test code = AGAP) 10.5 10.0-20.0 N [facility] CenterUbqhqjzLTPQKOYCU9476-95-03 04:28:00 Test Item Value Reference Range Interpretation Comments B/C Ratio (test code = B/C Ratio) 6 6-25 N [facility] CenterDmbfbnhRYPOCPCQC0242-88-40 04:28:00 Test Item Value Reference Range Interpretation Comments A/G Ratio (test code = A/G Ratio) 0.7 0.7-1.6 N [facility] CenterCgdvfeoXROERULGI7721-16-13 04:28:00 Test Item Value Reference Range Interpretation Comments eGFR (test code = eGFR) 130 [facility] CenterRudtckiEERNXIOOJ0132-02-51 04:28:00 Test Item Value Reference Range Interpretation Comments Albumin Lvl (test code = Albumin Lvl) 2.9 3.5-5.0 L [facility] CenterVtardqePDOQRWFDS8214-32-59 04:28:00 Test Item Value Reference Range Interpretation Comments ASPARTATE TRANSAMINASE 20 See_Comment N [Aut omated message] (test code = ASPARTATE The s ystem which TRANSAMINASE) generated this result transmitted ref erence range: <=37. Th e reference range was not used to interpr et this result as normal/abnormal . [facility] CenterYpxgsmrCCXIVETQS4325-78-00 04:28:00 Test Item Value Reference Range Interpretation Comments Bili Total (test code = Bili Total) 0.5 0.2-1.3 N [facility] CenterEctedqdBVVVWKHXC2986-60-31 04:28:00 Test Item Value Reference Range Interpretation Comments Alk Phos (test code = Alk Phos) 89 39-136 N [facility] CenterItxlixnEMIMVVRWT8789-96-73 04:28:00 Test Item Value Reference Range Interpretation Comments ALANINE AMINOTRANSFERASE 11 See_Comment N [A utomated message] (test code = ALANINE The sys tem which AMINOTRANSFERASE) generated this result transmitted ref erence range: <=65. Th e reference range was not used to int erpret this result as normal/abnormal . [facility] CenterJpgvvtiTCHOXWVXI3021-34-48 04:28:00 Test Item Value Reference Range Interpretation Comments Creatinine Lvl (test code = Creatinine 0.5 0.5-1.4 N Lvl) [facility] CenterYmpjpraIXPJQNOYI0979-36-06 04:28:00 Test Item Value Reference Range Interpretation Comments BUN (test code = BUN) 3 7-22 L [facility] CenterVesghdkFTIORORZL8594-55-36 04:28:00 Test Item Value Reference Range Interpretation Comments Glucose Lvl (test code = Glucose Lvl) 255 70-99 H [facility] CenterByyqlvtURCSTDFEY0439-19-09 04:28:00 Test Item Value Reference Range Interpretation Comments Total Protein (test code = Total 7.0 6.4-8.4 N Protein) [facility] CenterTnlorfaSBDJJBENC7010-39-78 04:28:00 Test Item Value Reference Range Interpretation Comments Calcium Lvl (test code = Calcium Lvl) 8.7 8.5-10.5 N [facility] CenterKiufrfcDTCAAXKJQ0031-64-10 04:28:00 Test Item Value Reference Range Interpretation Comments CO2 (test code = CO2) 29 24-32 N [facility] CenterLyjzrwmWWZQLYRUM1558-30-96 04:28:00 Test Item Value Reference Range Interpretation Comments Chloride Lvl (test code = Chloride Lvl) 104 95-109 N [facility] CenterZkxujxeZKPXZGCZL8019-63-26 04:28:00 Test Item Value Reference Range Interpretation Comments Potassium Lvl (test code = Potassium 3.5 3.5-5.1 N Lvl) [facility] CenterOwjqippECXFNGLKL7062-13-38 04:28:00 Test Item Value Reference Range Interpretation Comments Sodium Lvl (test code = Sodium Lvl) 140 135-145 N [facility] HospitalMdfulrnGWMPMQBOSN6630-27-95 04:28:00 Test Item Value Reference Range Interpretation Comments PROTIME (test code = PROTIME) 12.1 s 12.0-14.7 N [facility] HospitalRfifrnlMDGWPUWADV4406-25-01 04:28:00 Test Item Value Reference Range Interpretation Comments aPTT (test code = aPTT) 39.0 s 22.9-35.8 H [facility] HospitalUomoxxaJNSAASWGHR4685-26-42 04:28:00 Test Item Value Reference Range Interpretation Comments INR (test code = INR) 0.90 0.85-1.17 N [facility] HospitalEkreiamIUPLDLRTZP2194-45-84 04:28:00 Test Item Value Reference Range Interpretation Comments MCH (test code = MCH) 29.4 pg 27.0-31.0 N [facility] HospitalKdkdoguABOWGZTDXT7883-06-76 04:28:00 Test Item Value Reference Range Interpretation Comments MCV (test code = MCV) 86.1 81.0-99.0 N [facility] HospitalGjjhnxxRAZDHGXSDP9337-35-24 04:28:00 Test Item Value Reference Range Interpretation Comments Hct (test code = Hct) 29.4 36.0-48.0 L [facility] HospitalKjppmonTXFISUTLES1334-93-95 04:28:00 Test Item Value Reference Range Interpretation Comments RDW (test code = RDW) 14.0 11.5-14.5 N [facility] HospitalIzexpnbBANAOCRQZO6595-97-82 04:28:00 Test Item Value Reference Range Interpretation Comments WBC X 10x3 (test code = WBC X 10x3) 6.2 3.7-10.4 N [facility] HospitalUvmokvoXQTJYDPNFN3632-15-06 04:28:00 Test Item Value Reference Range Interpretation Comments Platelet (test code = Platelet) 178 133-450 N [facility] HospitalUdmfeoiHIHJZMGSJI2692-84-64 04:28:00 Test Item Value Reference Range Interpretation Comments MCHC (test code = MCHC) 34.1 32.0-36.0 N [facility] HospitalFucrybcNXGJCUSJMJ0015-60-22 04:28:00 Test Item Value Reference Range Interpretation Comments RBC X 10x6 (test code = RBC X 10x6) 3.41 4.20-5.40 L [facility] HospitalJfosnmqPINHIGQCEY7869-44-89 04:28:00 Test Item Value Reference Range Interpretation Comments Hgb (test code = Hgb) 10.0 12.0-16.0 L [facility] HospitalZrydkfcJBADESZXVA9821-84-76 04:28:00 Test Item Value Reference Range Interpretation Comments MPV (test code = MPV) 10.1 7.4-10.4 [facility]2013-10-26 04:28:00 Test Item Value Reference Range Interpretation Comments Segs-Bands # (test code = Segs-Bands #) 4.4 1.5-8.1 N [facility] HospitalVwlfycwLHJGTXYZXP4390-96-06 04:28:00 Test Item Value Reference Range Interpretation Comments Basophils (test code = 0.7 See_Comment N [Aut omated message] The Basophils) system which ge nerated this result tra nsmitted reference range : <=1.0. The reference r leo was not used to int erpret this result as normal/abnormal . [facility] HospitalCkksfibKEPOXCNLUK9386-19-85 04:28:00 Test Item Value Reference Range Interpretation Comments Segs (test code = Segs) 70.7 45.0-75.0 N [facility]GktrdkbAFZIYMWLCL7789-22-08 04:28:00 Test Item Value Reference Range Interpretation Comments Monocytes # (test code 0.3 See_Comment N [Aut omated message] The = Monocytes #) system which generated this result tra nsmitted reference range : <=0.8. The reference r leo was not used to int erpret this result as normal/abnormal . [facility]XnxovttUPMICRIVCO6630-16-95 04:28:00 Test Item Value Reference Range Interpretation Comments Lymphocytes # (test code = Lymphocytes 1.2 1.0-5.5 N #) [facility]DhyeytcYGDBLCVXTA2484-53-51 04:28:00 Test Item Value Reference Range Interpretation Comments Monocytes (test code = Monocytes) 4.5 2.0-12.0 N [facility] HospitalXamklsoZKUPZFCAVH8983-61-31 04:28:00 Test Item Value Reference Range Interpretation Comments Eosinophils (test code = 4.1 See_Comment H [A utomated message] The Eosinophils) system which ge nerated this result tra nsmitted reference range : <=4.0. The reference r leo was not used to int erpret this result as normal/abnormal . [facility] HospitalSxnystfBDXLGJDUQG1219-42-02 04:28:00 Test Item Value Reference Range Interpretation Comments Lymphocytes (test code = Lymphocytes) 20.0 20.0-40.0 N [facility] HospitalSkvhgxzPNTVUYELQN8515-19-46 04:28:00 Test Item Value Reference Range Interpretation Comments Basophils # (test code 0.0 See_Comment N [Aut omated message] The = Basophils #) system which generated this result tra nsmitted reference range : <=0.2. The reference r leo was not used to int erpret this result as normal/abnormal . [facility] HospitalHouwqvzLDUQZJURDM5395-30-02 04:28:00 Test Item Value Reference Range Interpretation Comments Eosinophils # (test code 0.3 See_Comment N [A utomated message] The = Eosinophils #) system whic h generated this result tra nsmitted reference range : <=0.5. The reference r leo was not used to int erpret this result as normal/abnormal . [facility] CenterZobxrqrQPBPXKJEV8997-25-57 04:28:00 Test Item Value Reference Range Interpretation Comments S Preg (test code = S Negative *NA*(04/14/2013 Preg) 23:28:00) [facility] CenterRkmqrwxKWDOLUOSA0951-25-70 04:28:00 Test Item Value Reference Range Interpretation Comments Lipase Lvl (test code = Lipase Lvl) 233 73-393 N [facility] CenterFvttlahINJRDCMPP7469-40-17 04:28:00 Test Item Value Reference Range Interpretation Comments Globulin (test code = Globulin) 4.1 2.0-4.0 H [facility] CenterAwjpdxjLCLVGBYGG2827-52-73 04:28:00 Test Item Value Reference Range Interpretation Comments AGAP (test code = AGAP) 10.5 10.0-20.0 N [facility] CenterZqbahxiEPYXXLLLJ4512-99-70 04:28:00 Test Item Value Reference Range Interpretation Comments B/C Ratio (test code = B/C Ratio) 6 6-25 N [facility] CenterRqwtntiWJRDYEJIY4471-52-31 04:28:00 Test Item Value Reference Range Interpretation Comments A/G Ratio (test code = A/G Ratio) 0.7 0.7-1.6 N [facility] CenterCgxxgpiCBXCPZBNC5831-69-95 04:28:00 Test Item Value Reference Range Interpretation Comments eGFR (test code = eGFR) 130 [facility] CenterLxokyrpZHZYYKZJM2202-81-09 04:28:00 Test Item Value Reference Range Interpretation Comments Albumin Lvl (test code = Albumin Lvl) 2.9 3.5-5.0 L [facility] CenterCjrsmdbBSVBGJYFL4877-66-28 04:28:00 Test Item Value Reference Range Interpretation Comments ASPARTATE TRANSAMINASE 20 See_Comment N [Aut omated message] (test code = ASPARTATE The s ystem which TRANSAMINASE) generated this result transmitted ref erence range: <=37. Th e reference range was not used to interpr et this result as normal/abnormal . [facility] CenterNojkmblPLKNBPCMU7729-53-59 04:28:00 Test Item Value Reference Range Interpretation Comments Bili Total (test code = Bili Total) 0.5 0.2-1.3 N [facility] CenterMwyztpbJMEKKYULP9695-17-36 04:28:00 Test Item Value Reference Range Interpretation Comments Alk Phos (test code = Alk Phos) 89 39-136 N [facility] CenterPnytdozLFKIARJQX9632-22-46 04:28:00 Test Item Value Reference Range Interpretation Comments ALANINE AMINOTRANSFERASE 11 See_Comment N [A utomated message] (test code = ALANINE The sys tem which AMINOTRANSFERASE) generated this result transmitted ref erence range: <=65. Th e reference range was not used to int erpret this result as normal/abnormal . [facility] CenterJoxdandCILMQOGBJ1625-56-57 04:28:00 Test Item Value Reference Range Interpretation Comments Creatinine Lvl (test code = Creatinine 0.5 0.5-1.4 N Lvl) [facility] CenterLzoemotTKICZOJMF8458-65-44 04:28:00 Test Item Value Reference Range Interpretation Comments BUN (test code = BUN) 3 7-22 L [facility] CenterPxdzdbaLVNGWKSYI9133-96-87 04:28:00 Test Item Value Reference Range Interpretation Comments Glucose Lvl (test code = Glucose Lvl) 255 70-99 H [facility] CenterTniedcsXUUQRYRDK3977-88-16 04:28:00 Test Item Value Reference Range Interpretation Comments Total Protein (test code = Total 7.0 6.4-8.4 N Protein) [facility] CenterDlinnrcUMNXWOMZA4511-01-52 04:28:00 Test Item Value Reference Range Interpretation Comments Calcium Lvl (test code = Calcium Lvl) 8.7 8.5-10.5 N [facility] CenterDgmmpgmGBPGGRRGA2592-74-09 04:28:00 Test Item Value Reference Range Interpretation Comments CO2 (test code = CO2) 29 24-32 N [facility] CenterYefjiemDLAESHWRK3035-08-82 04:28:00 Test Item Value Reference Range Interpretation Comments Chloride Lvl (test code = Chloride Lvl) 104 95-109 N [facility] CenterAovbqerQOCCTOSDD5900-98-08 04:28:00 Test Item Value Reference Range Interpretation Comments Potassium Lvl (test code = Potassium 3.5 3.5-5.1 N Lvl) [facility] CenterRhqwnsmCSCXOYATI3438-88-75 04:28:00 Test Item Value Reference Range Interpretation Comments Sodium Lvl (test code = Sodium Lvl) 140 135-145 N [facility] HospitalGptadqrXNLTXHPRHW2038-72-13 04:28:00 Test Item Value Reference Range Interpretation Comments PROTIME (test code = PROTIME) 12.1 s 12.0-14.7 N [facility] HospitalHhqnlcuCTAVAPZSQW7334-66-85 04:28:00 Test Item Value Reference Range Interpretation Comments aPTT (test code = aPTT) 39.0 s 22.9-35.8 H [facility] HospitalLxiafpfNKXONXAXEI0064-48-37 04:28:00 Test Item Value Reference Range Interpretation Comments INR (test code = INR) 0.90 0.85-1.17 N [facility] HospitalEzsjxgbVRDFJNACJP9371-17-28 04:28:00 Test Item Value Reference Range Interpretation Comments MCH (test code = MCH) 29.4 pg 27.0-31.0 N [facility] HospitalVpadnutFWGOTAEBCF4594-08-13 04:28:00 Test Item Value Reference Range Interpretation Comments MCV (test code = MCV) 86.1 81.0-99.0 N [facility] HospitalTwqoggkCRLRPLKCKU7409-84-67 04:28:00 Test Item Value Reference Range Interpretation Comments Hct (test code = Hct) 29.4 36.0-48.0 L [facility] HospitalMpaogqwCEESSZBLWQ9865-00-10 04:28:00 Test Item Value Reference Range Interpretation Comments RDW (test code = RDW) 14.0 11.5-14.5 N [facility] HospitalEnczlxyWEOQCWDHTK0370-68-52 04:28:00 Test Item Value Reference Range Interpretation Comments WBC X 10x3 (test code = WBC X 10x3) 6.2 3.7-10.4 N [facility] HospitalJpxvxktATZLQMUTHY6175-43-57 04:28:00 Test Item Value Reference Range Interpretation Comments Platelet (test code = Platelet) 178 133-450 N [facility] HospitalXdiivulDLRHWADPYY6655-81-39 04:28:00 Test Item Value Reference Range Interpretation Comments MCHC (test code = MCHC) 34.1 32.0-36.0 N [facility] HospitalTjdfghxYYNEEHNLIV1303-06-83 04:28:00 Test Item Value Reference Range Interpretation Comments RBC X 10x6 (test code = RBC X 10x6) 3.41 4.20-5.40 L [facility] HospitalPsjppiyMIBIGTBNMJ0216-35-63 04:28:00 Test Item Value Reference Range Interpretation Comments Hgb (test code = Hgb) 10.0 12.0-16.0 L [facility] HospitalQqlrccvNZQLCARYAJ5817-79-79 04:28:00 Test Item Value Reference Range Interpretation Comments MPV (test code = MPV) 10.1 7.4-10.4 N [facility] HospitalLkywqytNERDEHUMXG2027-23-41 04:28:00 Test Item Value Reference Range Interpretation Comments Segs-Bands # (test code = Segs-Bands #) 4.4 1.5-8.1 N [facility] HospitalZrjbxftDQQQIUSNNT9457-01-52 04:28:00 Test Item Value Reference Range Interpretation Comments Basophils (test code = 0.7 See_Comment N [Aut omated message] The Basophils) system which ge nerated this result tra nsmitted reference range : <=1.0. The reference r leo was not used to int erpret this result as normal/abnormal . [facility] HospitalNqphdojBUGHGGMSCR0232-34-26 04:28:00 Test Item Value Reference Range Interpretation Comments Segs (test code = Segs) 70.7 45.0-75.0 N [facility] HospitalUjzcupgYOMSHQXNQQ5709-61-70 04:28:00 Test Item Value Reference Range Interpretation Comments Monocytes # (test code 0.3 See_Comment N [Aut omated message] The = Monocytes #) system which generated this result tra nsmitted reference range : <=0.8. The reference r leo was not used to int erpret this result as normal/abnormal . [facility] HospitalZxppcdiAOGQECOMYM2260-46-31 04:28:00 Test Item Value Reference Range Interpretation Comments Lymphocytes # (test code = Lymphocytes 1.2 1.0-5.5 N #) [facility] HospitalZpnqokxARWVIPUBUJ5905-37-42 04:28:00 Test Item Value Reference Range Interpretation Comments Monocytes (test code = Monocytes) 4.5 2.0-12.0 N [facility] HospitalNmgzdsrQYRXFRRFVU2842-13-25 04:28:00 Test Item Value Reference Range Interpretation Comments Eosinophils (test code = 4.1 See_Comment H [A utomated message] The Eosinophils) system which ge nerated this result tra nsmitted reference range : <=4.0. The reference r leo was not used to int erpret this result as normal/abnormal . [facility] HospitalSdclbulZOEUWCHCHF7909-00-64 04:28:00 Test Item Value Reference Range Interpretation Comments Lymphocytes (test code = Lymphocytes) 20.0 20.0-40.0 N [facility] HospitalBjhdjrzFLGLIVILHI2313-38-45 04:28:00 Test Item Value Reference Range Interpretation Comments Basophils # (test code 0.0 See_Comment N [Aut omated message] The = Basophils #) system which generated this result tra nsmitted reference range : <=0.2. The reference r leo was not used to int erpret this result as normal/abnormal . [facility] HospitalQhvjqoxOGIORBDQHJ5081-63-16 04:28:00 Test Item Value Reference Range Interpretation Comments Eosinophils # (test code 0.3 See_Comment N [A utomated message] The = Eosinophils #) system whic h generated this result tra nsmitted reference range : <=0.5. The reference r leo was not used to int erpret this result as normal/abnormal . [facility] CenterPcmfksoMUGABQOVJ1723-41-46 04:28:00 Test Item Value Reference Range Interpretation Comments S Preg (test code = S Negative *NA*(04/14/2013 Preg) 23:28:00) [facility] CenterOycvfitAEQRZSLZY0252-97-94 04:28:00 Test Item Value Reference Range Interpretation Comments Lipase Lvl (test code = Lipase Lvl) 233 73-393 N [facility] CenterGmpcbsnZPHVFXGCB8885-11-30 04:28:00 Test Item Value Reference Range Interpretation Comments Globulin (test code = Globulin) 4.1 2.0-4.0 H [facility] CenterEvfggdmVAXIRVRDL6120-74-27 04:28:00 Test Item Value Reference Range Interpretation Comments AGAP (test code = AGAP) 10.5 10.0-20.0 N [facility] CenterIzefvrmTQFLKUHCL8337-91-40 04:28:00 Test Item Value Reference Range Interpretation Comments B/C Ratio (test code = B/C Ratio) 6 6-25 N [facility] CenterOobraheMDPZLIRVB1392-17-09 04:28:00 Test Item Value Reference Range Interpretation Comments A/G Ratio (test code = A/G Ratio) 0.7 0.7-1.6 N [facility] CenterKimhydgUHHPUZJNX2537-07-89 04:28:00 Test Item Value Reference Range Interpretation Comments eGFR (test code = eGFR) 130 [facility] CenterTdalotkUZFHKIHKB8755-52-79 04:28:00 Test Item Value Reference Range Interpretation Comments Albumin Lvl (test code = Albumin Lvl) 2.9 3.5-5.0 L [facility] CenterIiiomguZBZAUTSHW1293-71-11 04:28:00 Test Item Value Reference Range Interpretation Comments ASPARTATE TRANSAMINASE 20 See_Comment N [Aut omated message] (test code = ASPARTATE The s ystem which TRANSAMINASE) generated this result transmitted ref erence range: <=37. Th e reference range was not used to interpr et this result as normal/abnormal . [facility] CenterTdbrzpwZHIBMDPTX6986-43-94 04:28:00 Test Item Value Reference Range Interpretation Comments Bili Total (test code = Bili Total) 0.5 0.2-1.3 N [facility] CenterGdgcouwLIKLCQCCF8532-94-05 04:28:00 Test Item Value Reference Range Interpretation Comments Alk Phos (test code = Alk Phos) 89 39-136 N [facility] CenterXcoeecvPRFKKCIHG5987-73-35 04:28:00 Test Item Value Reference Range Interpretation Comments ALANINE AMINOTRANSFERASE 11 See_Comment N [A utomated message] (test code = ALANINE The sys tem which AMINOTRANSFERASE) generated this result transmitted ref erence range: <=65. Th e reference range was not used to int erpret this result as normal/abnormal . [facility] CenterBqnngsuZIAVWATHJ0411-98-40 04:28:00 Test Item Value Reference Range Interpretation Comments Creatinine Lvl (test code = Creatinine 0.5 0.5-1.4 N Lvl) [facility] CenterSzpypntQJFIOVWWP1721-00-41 04:28:00 Test Item Value Reference Range Interpretation Comments BUN (test code = BUN) 3 7-22 L [facility] CenterIuveevnRZWITWGIE6310-20-21 04:28:00 Test Item Value Reference Range Interpretation Comments Glucose Lvl (test code = Glucose Lvl) 255 70-99 H [facility] CenterMwipqliFLDLPCTUY3746-38-96 04:28:00 Test Item Value Reference Range Interpretation Comments Total Protein (test code = Total 7.0 6.4-8.4 N Protein) [facility] CenterUlpkpktJGQOBQQLH9113-85-47 04:28:00 Test Item Value Reference Range Interpretation Comments Calcium Lvl (test code = Calcium Lvl) 8.7 8.5-10.5 N [facility] CenterUnrcvubXZMVLPFYN4589-90-02 04:28:00 Test Item Value Reference Range Interpretation Comments CO2 (test code = CO2) 29 24-32 N [facility] CenterSdgayokSJCRZTMDF2594-65-43 04:28:00 Test Item Value Reference Range Interpretation Comments Chloride Lvl (test code = Chloride Lvl) 104 95-109 N [facility] CenterGxpygieJKPFGHCTS6074-73-69 04:28:00 Test Item Value Reference Range Interpretation Comments Potassium Lvl (test code = Potassium 3.5 3.5-5.1 N Lvl) [facility] CenterEbdzimlMTDELLRXC9185-78-29 04:28:00 Test Item Value Reference Range Interpretation Comments Sodium Lvl (test code = Sodium Lvl) 140 135-145 N [facility] HospitalPpuseudWRLGAMKNCQ6295-08-90 04:28:00 Test Item Value Reference Range Interpretation Comments PROTIME (test code = PROTIME) 12.1 s 12.0-14.7 N [facility] HospitalUnweqqsOBMOZJELZR7971-81-44 04:28:00 Test Item Value Reference Range Interpretation Comments aPTT (test code = aPTT) 39.0 s 22.9-35.8 H [facility] HospitalIiqkigrUKYVSZWOYN6966-90-14 04:28:00 Test Item Value Reference Range Interpretation Comments INR (test code = INR) 0.90 0.85-1.17 N [facility] HospitalOyhfcuuFVTUNWLLHD2035-63-88 04:28:00 Test Item Value Reference Range Interpretation Comments MCH (test code = MCH) 29.4 pg 27.0-31.0 N [facility] HospitalKqxhryuFLYXEMXMQX6719-32-57 04:28:00 Test Item Value Reference Range Interpretation Comments MCV (test code = MCV) 86.1 81.0-99.0 N [facility] HospitalQvguvlvSMSIEVHSOA1654-92-01 04:28:00 Test Item Value Reference Range Interpretation Comments Hct (test code = Hct) 29.4 36.0-48.0 L [facility] HospitalBnhmsflGEBOZLVSZD8405-50-24 04:28:00 Test Item Value Reference Range Interpretation Comments RDW (test code = RDW) 14.0 11.5-14.5 N [facility] HospitalOprxrlpTQEYOCCCBU0277-24-01 04:28:00 Test Item Value Reference Range Interpretation Comments WBC X 10x3 (test code = WBC X 10x3) 6.2 3.7-10.4 N [facility] HospitalUkhdyvoKZULFQWPNI4038-23-93 04:28:00 Test Item Value Reference Range Interpretation Comments Platelet (test code = Platelet) 178 133-450 N [facility] HospitalHhabmnhQDCDZSVJGX1800-73-39 04:28:00 Test Item Value Reference Range Interpretation Comments MCHC (test code = MCHC) 34.1 32.0-36.0 N [facility] HospitalLvnzxpvGAOXOUECYX2970-19-04 04:28:00 Test Item Value Reference Range Interpretation Comments RBC X 10x6 (test code = RBC X 10x6) 3.41 4.20-5.40 L [facility] HospitalBstlhbcMFVNGMTZDI8480-09-89 04:28:00 Test Item Value Reference Range Interpretation Comments Hgb (test code = Hgb) 10.0 12.0-16.0 L [facility] HospitalVjutowmXLMLMCRZCP4782-57-73 04:28:00 Test Item Value Reference Range Interpretation Comments MPV (test code = MPV) 10.1 7.4-10.4 N [facility] HospitalCqfvrdoKVWSPASYZZ0203-35-78 04:28:00 Test Item Value Reference Range Interpretation Comments Segs-Bands # (test code = Segs-Bands #) 4.4 1.5-8.1 N [facility] HospitalSnyjvfcDKCUYSUTUZ4966-93-69 04:28:00 Test Item Value Reference Range Interpretation Comments Basophils (test code = 0.7 See_Comment N [Aut omated message] The Basophils) system which ge nerated this result tra nsmitted reference range : <=1.0. The reference r leo was not used to int erpret this result as normal/abnormal . [facility] HospitalNtixrvrBJFSHUMSPU9365-52-13 04:28:00 Test Item Value Reference Range Interpretation Comments Segs (test code = Segs) 70.7 45.0-75.0 N [facility] HospitalSgdfducDEJBJNAJSJ6342-15-07 04:28:00 Test Item Value Reference Range Interpretation Comments Monocytes # (test code 0.3 See_Comment N [Aut omated message] The = Monocytes #) system which generated this result tra nsmitted reference range : <=0.8. The reference r leo was not used to int erpret this result as normal/abnormal . [facility] HospitalQekbkhuYHLTYHPZXX4387-00-71 04:28:00 Test Item Value Reference Range Interpretation Comments Lymphocytes # (test code = Lymphocytes 1.2 1.0-5.5 N #) [facility] HospitalNfgwjypBQQXZOJKDO1714-53-84 04:28:00 Test Item Value Reference Range Interpretation Comments Monocytes (test code = Monocytes) 4.5 2.0-12.0 N [facility] HospitalPqrhfkeXMANBLBNOF7297-58-43 04:28:00 Test Item Value Reference Range Interpretation Comments Eosinophils (test code = 4.1 See_Comment H [A utomated message] The Eosinophils) system which ge nerated this result tra nsmitted reference range : <=4.0. The reference r leo was not used to int erpret this result as normal/abnormal . [facility] HospitalRhasoeiKUSLHFGWOX8274-08-36 04:28:00 Test Item Value Reference Range Interpretation Comments Lymphocytes (test code = Lymphocytes) 20.0 20.0-40.0 N [facility] HospitalFaoaagoRROWQGSUNF8827-45-98 04:28:00 Test Item Value Reference Range Interpretation Comments Basophils # (test code 0.0 See_Comment N [Aut omated message] The = Basophils #) system which generated this result tra nsmitted reference range : <=0.2. The reference r leo was not used to int erpret this result as normal/abnormal . [facility] HospitalKvldqnkCYGQBYVXIO8434-97-11 04:28:00 Test Item Value Reference Range Interpretation Comments Eosinophils # (test code 0.3 See_Comment N [A utomated message] The = Eosinophils #) system whic h generated this result tra nsmitted reference range : <=0.5. The reference r leo was not used to int erpret this result as normal/abnormal . [facility] CenterFzjfhwwKWKURGMTF0760-43-84 04:28:00 Test Item Value Reference Range Interpretation Comments S Preg (test code = S Negative *NA*(04/14/2013 Preg) 23:28:00) [facility] CenterPhdqaxdQDIHGPFUJ7635-44-13 04:28:00 Test Item Value Reference Range Interpretation Comments Lipase Lvl (test code = Lipase Lvl) 233 73-393 N [facility] CenterPutkkvtQRHWKCRRC5968-90-88 04:28:00 Test Item Value Reference Range Interpretation Comments Globulin (test code = Globulin) 4.1 2.0-4.0 H [facility] CenterFwxkdaqHCWDZEPAH9604-66-80 04:28:00 Test Item Value Reference Range Interpretation Comments AGAP (test code = AGAP) 10.5 10.0-20.0 N [facility] CenterUxeejidDKDJYFHNI0268-92-76 04:28:00 Test Item Value Reference Range Interpretation Comments B/C Ratio (test code = B/C Ratio) 6 6-25 N [facility] CenterLwwftxkBYJYXCLYQ2612-65-31 04:28:00 Test Item Value Reference Range Interpretation Comments A/G Ratio (test code = A/G Ratio) 0.7 0.7-1.6 N [facility] CenterNhftqarWBFVHXMBH2356-30-10 04:28:00 Test Item Value Reference Range Interpretation Comments eGFR (test code = eGFR) 130 [facility] CenterMggyiwxTFGLEQVVS6471-61-86 04:28:00 Test Item Value Reference Range Interpretation Comments Albumin Lvl (test code = Albumin Lvl) 2.9 3.5-5.0 L [facility] CenterNizcxnzAZHXNOXGQ0442-30-23 04:28:00 Test Item Value Reference Range Interpretation Comments ASPARTATE TRANSAMINASE 20 See_Comment N [Aut omated message] (test code = ASPARTATE The s ystem which TRANSAMINASE) generated this result transmitted ref erence range: <=37. Th e reference range was not used to interpr et this result as normal/abnormal . [facility] CenterPicpxxdTGNPYIOVS4157-01-49 04:28:00 Test Item Value Reference Range Interpretation Comments Bili Total (test code = Bili Total) 0.5 0.2-1.3 N [facility] CenterSohszbaYLCNEGINV4407-30-29 04:28:00 Test Item Value Reference Range Interpretation Comments Alk Phos (test code = Alk Phos) 89 39-136 N [facility] CenterIjyoocfHDDCQWNLA8292-99-58 04:28:00 Test Item Value Reference Range Interpretation Comments ALANINE AMINOTRANSFERASE 11 See_Comment N [A utomated message] (test code = ALANINE The sys tem which AMINOTRANSFERASE) generated this result transmitted ref erence range: <=65. Th e reference range was not used to int erpret this result as normal/abnormal . [facility] CenterJwgoihvXQLYWHATH7136-13-57 04:28:00 Test Item Value Reference Range Interpretation Comments Creatinine Lvl (test code = Creatinine 0.5 0.5-1.4 N Lvl) [facility] CenterGzxjwmmDZWVDVVBS8669-81-84 04:28:00 Test Item Value Reference Range Interpretation Comments BUN (test code = BUN) 3 7-22 L [facility] CenterYcxrgeoKOONUQFRR3062-53-31 04:28:00 Test Item Value Reference Range Interpretation Comments Glucose Lvl (test code = Glucose Lvl) 255 70-99 H [facility] CenterRpiepukHCXUYBXKB1274-83-99 04:28:00 Test Item Value Reference Range Interpretation Comments Total Protein (test code = Total 7.0 6.4-8.4 N Protein) [facility] CenterZclpfifLZCCQLOPW7154-90-93 04:28:00 Test Item Value Reference Range Interpretation Comments Calcium Lvl (test code = Calcium Lvl) 8.7 8.5-10.5 N [facility] CenterIcvhhgmIDHOJKHZB4612-47-94 04:28:00 Test Item Value Reference Range Interpretation Comments CO2 (test code = CO2) 29 24-32 N [facility] CenterNxyailjDIWGWIZVV7637-11-86 04:28:00 Test Item Value Reference Range Interpretation Comments Chloride Lvl (test code = Chloride Lvl) 104 95-109 N [facility] CenterEnajcqeXNXZUMHCA9374-73-19 04:28:00 Test Item Value Reference Range Interpretation Comments Potassium Lvl (test code = Potassium 3.5 3.5-5.1 N Lvl) [facility] CenterOmwqhspZIBWCYABZ6215-32-33 04:28:00 Test Item Value Reference Range Interpretation Comments Sodium Lvl (test code = Sodium Lvl) 140 135-145 N [facility] HospitalKqnlhgoZFILQAWQQO0795-91-02 04:28:00 Test Item Value Reference Range Interpretation Comments PROTIME (test code = PROTIME) 12.1 s 12.0-14.7 N [facility] HospitalVrgrynzQABYDEENPR4638-03-25 04:28:00 Test Item Value Reference Range Interpretation Comments aPTT (test code = aPTT) 39.0 s 22.9-35.8 H [facility] HospitalUgxbiagYADJZKHEDW8092-39-54 04:28:00 Test Item Value Reference Range Interpretation Comments INR (test code = INR) 0.90 0.85-1.17 [facility]MikklldMLNDJRVIWR7931-33-54 04:28:00 Test Item Value Reference Range Interpretation Comments MCH (test code = MCH) 29.4 pg 27.0-31.0 N [facility] HospitalIkjksklAHUGXBOJDH2949-42-62 04:28:00 Test Item Value Reference Range Interpretation Comments MCV (test code = MCV) 86.1 81.0-99.0 N [facility] HospitalTzoqqcbQCYPRVDYNQ5918-51-76 04:28:00 Test Item Value Reference Range Interpretation Comments Hct (test code = Hct) 29.4 36.0-48.0 L [facility] HospitalYsfzoldOZXTLETZOD1904-55-31 04:28:00 Test Item Value Reference Range Interpretation Comments RDW (test code = RDW) 14.0 11.5-14.5 N [facility] HospitalKxyayatQCJDAWKYNI2170-67-62 04:28:00 Test Item Value Reference Range Interpretation Comments WBC X 10x3 (test code = WBC X 10x3) 6.2 3.7-10.4 N [facility] HospitalZsrnnyxWKLHHVFDXS8396-39-61 04:28:00 Test Item Value Reference Range Interpretation Comments Platelet (test code = Platelet) 178 133-450 N [facility] HospitalCyzdqlcVZAOUXUBNO3564-53-69 04:28:00 Test Item Value Reference Range Interpretation Comments MCHC (test code = MCHC) 34.1 32.0-36.0 N [facility] HospitalRujvfvjZROYGQDVDH5949-04-36 04:28:00 Test Item Value Reference Range Interpretation Comments RBC X 10x6 (test code = RBC X 10x6) 3.41 4.20-5.40 L [facility] HospitalRuycxxzMMJGBQPEDX8848-12-26 04:28:00 Test Item Value Reference Range Interpretation Comments Hgb (test code = Hgb) 10.0 12.0-16.0 L [facility] HospitalAmeekubHZFSNXSWEC6299-11-21 04:28:00 Test Item Value Reference Range Interpretation Comments MPV (test code = MPV) 10.1 7.4-10.4 N [facility] HospitalYghkkiqQWJVZFTWXL0387-01-87 04:28:00 Test Item Value Reference Range Interpretation Comments Segs-Bands # (test code = Segs-Bands #) 4.4 1.5-8.1 N [facility] HospitalQhdcndlRHABKWFQIE0787-37-83 04:28:00 Test Item Value Reference Range Interpretation Comments Basophils (test code = 0.7 See_Comment N [Aut omated message] The Basophils) system which ge nerated this result tra nsmitted reference range : <=1.0. The reference r leo was not used to int erpret this result as normal/abnormal . [facility] HospitalQagoiweXNNHNGRNZF3216-38-05 04:28:00 Test Item Value Reference Range Interpretation Comments Segs (test code = Segs) 70.7 45.0-75.0 N [facility] HospitalMfvdwqdCMKTUVYBRQ2294-69-88 04:28:00 Test Item Value Reference Range Interpretation Comments Monocytes # (test code 0.3 See_Comment N [Aut omated message] The = Monocytes #) system which generated this result tra nsmitted reference range : <=0.8. The reference r leo was not used to int erpret this result as normal/abnormal . [facility] HospitalEtgtcjtGKQPFLAMFX3274-59-66 04:28:00 Test Item Value Reference Range Interpretation Comments Lymphocytes # (test code = Lymphocytes 1.2 1.0-5.5 N #) [facility] HospitalEdeusdzUUDGHKEFSV5648-27-63 04:28:00 Test Item Value Reference Range Interpretation Comments Monocytes (test code = Monocytes) 4.5 2.0-12.0 N [facility] HospitalMtedotuLEHNFYTQXN3345-38-82 04:28:00 Test Item Value Reference Range Interpretation Comments Eosinophils (test code = 4.1 See_Comment H [A utomated message] The Eosinophils) system which ge nerated this result tra nsmitted reference range : <=4.0. The reference r leo was not used to int erpret this result as normal/abnormal . [facility] HospitalPjcsnnbJPUQUKGXNV5448-10-56 04:28:00 Test Item Value Reference Range Interpretation Comments Lymphocytes (test code = Lymphocytes) 20.0 20.0-40.0 N [facility] HospitalElqfyhgPAXJMXNONS5321-43-46 04:28:00 Test Item Value Reference Range Interpretation Comments Basophils # (test code 0.0 See_Comment N [Aut omated message] The = Basophils #) system which generated this result tra nsmitted reference range : <=0.2. The reference r leo was not used to int erpret this result as normal/abnormal . [facility] HospitalTvnmnmbTQECRUCKSV5097-03-43 04:28:00 Test Item Value Reference Range Interpretation Comments Eosinophils # (test code 0.3 See_Comment N [A utomated message] The = Eosinophils #) system whic h generated this result tra nsmitted reference range : <=0.5. The reference r leo was not used to int erpret this result as normal/abnormal . [facility] GLUCOSE JNLBOUN8335-85-34 01:12:00 Test Item Value Reference Range Interpretation Comments Gluc POC Lifscn (test code = Gluc POC 260 70-99 H Lifscn) [facility] GLUCOSE [id number] 01:12:00 Test Item Value Reference Range Interpretation Comments Comment1 (test code = Comment1) Notify RN/ [facility] GLUCOSE [id number] 01:12:00 Test Item Value Reference Range Interpretation Comments Gluc POC Lifscn (test code = Gluc POC 260 70-99 H Lifscn) [facility] GLUCOSE DUOYRMQ1509-61-90 01:12:00 Test Item Value Reference Range Interpretation Comments Comment1 (test code = Comment1) Notify RN/ [facility] GLUCOSE TNVPZRE7033-35-61 01:12:00 Test Item Value Reference Range Interpretation Comments Gluc POC Lifscn (test code = Gluc POC 260 70-99 H Lifscn) [facility] GLUCOSE QMVXSOY7972-60-72 01:12:00 Test Item Value Reference Range Interpretation Comments Comment1 (test code = Comment1) Notify RN/ [facility] GLUCOSE [id number] 01:12:00 Test Item Value Reference Range Interpretation Comments Gluc POC Lifscn (test code = Gluc POC 260 70-99 H Lifscn) [facility] GLUCOSE [id number] 01:12:00 Test Item Value Reference Range Interpretation Comments Comment1 (test code = Comment1) Notify RN/ [facility] GLUCOSE [id number] 01:12:00 Test Item Value Reference Range Interpretation Comments Gluc POC Lifscn (test code = Gluc POC 260 70-99 H Lifscn) [facility] GLUCOSE [id number] 01:12:00 Test Item Value Reference Range Interpretation Comments Comment1 (test code = Comment1) Not[facility] RN/ [facility] CenterPcnpiyiANWWEKMMNR8523-69-87 23:40:00 Test Item Value Reference Range Interpretation Comments UA Protein (test code = Trace A UA Protein) *ABN*(03/14/2012 18:40:00) [facility] CenterRskawueRQMBEKIABW5157-61-02 23:40:00 Test Item Value Reference Range Interpretation Comments UA pH (test code = UA pH) 6.0 1 5.0-8.0 N [facility] CenterLvsmzedDTVYXHRCGB7507-05-44 23:40:00 Test Item Value Reference Range Interpretation Comments UA Ketones (test code = >=80 mg/dL UA Ketones) *NA*(03/14/2012 18:40:00) [facility]QrihrlzXEKINCWUYL9173-22-26 23:40:00 Test Item Value Reference Range Interpretation Comments UA Glucose (test code = >=1000 mg/dL A UA Glucose) *ABN*(03/14/2012 18:40:00) [facility] CenterZufejxpKGMXIBVJAO8521-99-54 23:40:00 Test Item Value Reference Range Interpretation Comments UA Blood (test code = Negative (03/14/2012 N UA Blood) 18:40:00) [facility] CenterXfacfwwZFLWLNHGOH3819-36-75 23:40:00 Test Item Value Reference Range Interpretation Comments UA Nitrite (test code Negative (03/14/2012 N = UA Nitrite) 18:40:00) [facility] CenterJzhuxinXASPKXKCVM8856-66-95 23:40:00 Test Item Value Reference Range Interpretation Comments UA Urobilinogen (test code = UA 0.2 0.1-1.0 N Urobilinogen) [facility] CenterHodfvqxWMUCQHJZSY0042-45-39 23:40:00 Test Item Value Reference Range Interpretation Comments UA Leuk Est (test Negative (03/14/2012 N code = UA Leuk Est) 18:40:00) [facility] CenterFoytayaJFAUVJXYSO1775-69-86 23:40:00 Test Item Value Reference Range Interpretation Comments UA Bili (test code = Negative *NA*(03/14/2012 UA Bili) 18:40:00) [facility] CenterBlmxlwmRTDOXJDEGD4684-06-16 23:40:00 Test Item Value Reference Range Interpretation Comments UA Turbidity (test code = Clear (03/14/2012 N UA Turbidity) 18:40:00) [facility] CenterEonrhveDDWWPPFCKR1673-81-73 23:40:00 Test Item Value Reference Range Interpretation Comments UA Color (test code = Yellow *NA*(03/14/2012 UA Color) 18:40:00) [facility] CenterBvzwlfrZULANBTYBE8390-73-59 23:40:00 Test Item Value Reference Range Interpretation Comments UA Spec Grav (test >=1.030 A code = UA Spec Grav) *ABN*(03/14/2012 18:40:00) [facility] CenterBsyrgjgSZYOZMASJZ8767-71-13 23:40:00 Test Item Value Reference Range Interpretation Comments UA Sq Epi (test code Occasional /LPF N = UA Sq Epi) (03/14/2012 18:40:00) [facility]UbsxbbqJUBQEEOVJZ1769-71-16 23:40:00 Test Item Value Reference Range Interpretation Comments UA WBC (test code = UA 3-5 /HPF (03/14/2012 N WBC) 18:40:00) [facility]anoYgzlynvDEIRFUYYIZ6820-72-61 23:40:00 Test Item Value Reference Range Interpretation Comments UA Bacteria (test code Occasional /HPF N = UA Bacteria) (03/14/2012 18:40:00) [facility] CenterVkvtvefRGSLOCGIFL5879-25-76 23:40:00 Test Item Value Reference Range Interpretation Comments UA Protein (test code = Trace A UA Protein) *ABN*(03/14/2012 18:40:00) [facility] CenterYqdlqheBVRLDOVULT7854-77-22 23:40:00 Test Item Value Reference Range Interpretation Comments UA pH (test code = UA pH) 6.0 1 5.0-8.0 N [facility] CenterAcqphvnTSDAMHUDGC9511-47-48 23:40:00 Test Item Value Reference Range Interpretation Comments UA Ketones (test code = >=80 mg/dL UA Ketones) *NA*(03/14/2012 18:40:00) [facility] CenterQsjjwzsSRQOHNGOKS4428-70-65 23:40:00 Test Item Value Reference Range Interpretation Comments UA Glucose (test code = >=1000 mg/dL A UA Glucose) *ABN*(03/14/2012 18:40:00) [facility] CenterZiblwkwKXUAREDREC2205-64-41 23:40:00 Test Item Value Reference Range Interpretation Comments UA Blood (test code = Negative (03/14/2012 N UA Blood) 18:40:00) [facility] CenterJrrfknsCCVRAQEVVQ6133-58-01 23:40:00 Test Item Value Reference Range Interpretation Comments UA Nitrite (test code Negative (03/14/2012 N = UA Nitrite) 18:40:00) [facility] CenterJthshjrYGQJDRMNTC1480-96-70 23:40:00 Test Item Value Reference Range Interpretation Comments UA Urobilinogen (test code = UA 0.2 0.1-1.0 N Urobilinogen) [facility]anoCarylslBQCEXYBHLG6167-53-25 23:40:00 Test Item Value Reference Range Interpretation Comments UA Leuk Est (test Negative (03/14/2012 N code = UA Leuk Est) 18:40:00) [facility]anoZdmcymvZUDWGWQEFA8029-55-19 23:40:00 Test Item Value Reference Range Interpretation Comments UA Bili (test code = Negative *NA*(03/14/2012 UA Bili) 18:40:00) [facility] CenterWflbzddETNTHAXCNE0244-10-78 23:40:00 Test Item Value Reference Range Interpretation Comments UA Turbidity (test code = Clear (03/14/2012 N UA Turbidity) 18:40:00) [facility] CenterEmujceeWJUGRARKYO4517-02-97 23:40:00 Test Item Value Reference Range Interpretation Comments UA Color (test code = Yellow *NA*(03/14/2012 UA Color) 18:40:00) [facility] CenterKsluxbiDFMTITVXVH9187-69-43 23:40:00 Test Item Value Reference Range Interpretation Comments UA Spec Grav (test >=1.030 A code = UA Spec Grav) *ABN*(03/14/2012 18:40:00) [facility] CenterZingpkjCTGOOYYDOS0757-81-90 23:40:00 Test Item Value Reference Range Interpretation Comments UA Sq Epi (test code Occasional /LPF N = UA Sq Epi) (03/14/2012 18:40:00) [facility] CenterZwpgktoXBFUHUXFZI4606-20-47 23:40:00 Test Item Value Reference Range Interpretation Comments UA WBC (test code = UA 3-5 /HPF (03/14/2012 N WBC) 18:40:00) [facility] CenterXinopvuEPXMRUXFBN8828-98-77 23:40:00 Test Item Value Reference Range Interpretation Comments UA Bacteria (test code Occasional /HPF N = UA Bacteria) (03/14/2012 18:40:00) [facility] CenterOxgfsleIHQWUKTDLT1032-36-29 23:40:00 Test Item Value Reference Range Interpretation Comments UA Protein (test code = Trace A UA Protein) *ABN*(03/14/2012 18:40:00) [facility] CenterPtyanvtMYUHYLFKFG2654-85-96 23:40:00 Test Item Value Reference Range Interpretation Comments UA pH (test code = UA pH) 6.0 1 5.0-8.0 N [facility]anoDwouufhENPGRIIEUV5144-43-17 23:40:00 Test Item Value Reference Range Interpretation Comments UA Ketones (test code = >=80 mg/dL UA Ketones) *NA*(03/14/2012 18:40:00) [facility] CenterFzlqlzcPJMKJFMWPI3382-06-72 23:40:00 Test Item Value Reference Range Interpretation Comments UA Glucose (test code = >=1000 mg/dL A UA Glucose) *ABN*(03/14/2012 18:40:00) [facility] CenterQgawbymARBFPMJLJY8055-32-80 23:40:00 Test Item Value Reference Range Interpretation Comments UA Blood (test code = Negative (03/14/2012 N UA Blood) 18:40:00) [facility] CenterOnracckERZFKFOWZT5851-14-10 23:40:00 Test Item Value Reference Range Interpretation Comments UA Nitrite (test code Negative (03/14/2012 N = UA Nitrite) 18:40:00) [facility] CenterDglthmuDNJTNTNYJC2635-11-00 23:40:00 Test Item Value Reference Range Interpretation Comments UA Urobilinogen (test code = UA 0.2 0.1-1.0 N Urobilinogen) [facility] CenterKhhsopmPADWWAXPRH9948-97-09 23:40:00 Test Item Value Reference Range Interpretation Comments UA Leuk Est (test Negative (03/14/2012 N code = UA Leuk Est) 18:40:00) [facility] CenterUvxqjrqQCAOPGSXYI6912-29-91 23:40:00 Test Item Value Reference Range Interpretation Comments UA Bili (test code = Negative *NA*(03/14/2012 UA Bili) 18:40:00) [facility] CenterYvxvhaoMXZCUTKVFJ2736-81-01 23:40:00 Test Item Value Reference Range Interpretation Comments UA Turbidity (test code = Clear (03/14/2012 N UA Turbidity) 18:40:00) [facility] CenterBcnekybKZPWZKTPXC2286-27-87 23:40:00 Test Item Value Reference Range Interpretation Comments UA Color (test code = Yellow *NA*(03/14/2012 UA Color) 18:40:00) [facility] CenterMhxmdbwWSQSHYLMDA0057-81-22 23:40:00 Test Item Value Reference Range Interpretation Comments UA Spec Grav (test >=1.030 A code = UA Spec Grav) *ABN*(03/14/2012 18:40:00) [facility] CenterLcqxgdrDFXVXTLRZV3702-98-25 23:40:00 Test Item Value Reference Range Interpretation Comments UA Sq Epi (test code Occasional /LPF N = UA Sq Epi) (03/14/2012 18:40:00) [facility]KbchpejUMJHNBWUOQ8098-86-47 23:40:00 Test Item Value Reference Range Interpretation Comments UA WBC (test code = UA 3-5 /HPF (03/14/2012 N WBC) 18:40:00) [facility] CenterDkkkwmvPOMSVUIGXA6933-83-54 23:40:00 Test Item Value Reference Range Interpretation Comments UA Bacteria (test code Occasional /HPF N = UA Bacteria) (03/14/2012 18:40:00) [facility]anoNdkccnqILOAUBVQEZ7581-63-29 23:40:00 Test Item Value Reference Range Interpretation Comments UA Protein (test code = Trace A UA Protein) *ABN*(03/14/2012 18:40:00) [facility] CenterVpviafoYSABQTDQBB1961-02-42 23:40:00 Test Item Value Reference Range Interpretation Comments UA pH (test code = UA pH) 6.0 1 5.0-8.0 N [facility] CenterTbhmbwmQPUFDQVQMA6634-73-21 23:40:00 Test Item Value Reference Range Interpretation Comments UA Ketones (test code = >=80 mg/dL UA Ketones) *NA*(03/14/2012 18:40:00) [facility] CenterKxaunidJJINBFHQWD5442-32-59 23:40:00 Test Item Value Reference Range Interpretation Comments UA Glucose (test code = >=1000 mg/dL A UA Glucose) *ABN*(03/14/2012 18:40:00) [facility] CenterCitolifRFZYWFXDJK0921-97-41 23:40:00 Test Item Value Reference Range Interpretation Comments UA Blood (test code = Negative (03/14/2012 N UA Blood) 18:40:00) [facility] CenterOqzozwaTZZUAPISZB8372-93-46 23:40:00 Test Item Value Reference Range Interpretation Comments UA Nitrite (test code Negative (03/14/2012 N = UA Nitrite) 18:40:00) [facility]anoRfkhntzVSANKONHXX0556-33-22 23:40:00 Test Item Value Reference Range Interpretation Comments UA Urobilinogen (test code = UA 0.2 0.1-1.0 N Urobilinogen) [facility]anoZaqvlbaFQMODMEWXI1448-16-65 23:40:00 Test Item Value Reference Range Interpretation Comments UA Leuk Est (test Negative (03/14/2012 N code = UA Leuk Est) 18:40:00) [facility]anoGfavxsxUSVBZTJNMU1162-51-88 23:40:00 Test Item Value Reference Range Interpretation Comments UA Bili (test code = Negative *NA*(03/14/2012 UA Bili) 18:40:00) [facility] CenterXyqympaSBTDFLONFM4518-54-54 23:40:00 Test Item Value Reference Range Interpretation Comments UA Turbidity (test code = Clear (03/14/2012 N UA Turbidity) 18:40:00) [facility] CenterLyqcypbVEQXCGEJUM1839-94-25 23:40:00 Test Item Value Reference Range Interpretation Comments UA Color (test code = Yellow *NA*(03/14/2012 UA Color) 18:40:00) [facility] CenterCotxdgpEIZOJUOJWR6316-61-63 23:40:00 Test Item Value Reference Range Interpretation Comments UA Spec Grav (test >=1.030 A code = UA Spec Grav) *ABN*(03/14/2012 18:40:00) [facility] CenterKiyzdneXHTSTBGFEN0851-54-73 23:40:00 Test Item Value Reference Range Interpretation Comments UA Sq Epi (test code Occasional /LPF N = UA Sq Epi) (03/14/2012 18:40:00) [facility] CenterXgvtrtjFZELTOZGDP0940-34-52 23:40:00 Test Item Value Reference Range Interpretation Comments UA WBC (test code = UA 3-5 /HPF (03/14/2012 N WBC) 18:40:00) [facility] CenterOlbszscBDTOKMHNNZ4828-02-76 23:40:00 Test Item Value Reference Range Interpretation Comments UA Bacteria (test code Occasional /HPF N = UA Bacteria) (03/14/2012 18:40:00) [facility] CenterFfjtqijJWFWGXSYTX6922-17-41 23:40:00 Test Item Value Reference Range Interpretation Comments UA Protein (test code = Trace A UA Protein) *ABN*(03/14/2012 18:40:00) [facility] CenterJsozzgvELVNOXTILX5589-09-54 23:40:00 Test Item Value Reference Range Interpretation Comments UA pH (test code = UA pH) 6.0 1 5.0-8.0 N [facility]anoLysucgzHOGEFRETAN2744-92-62 23:40:00 Test Item Value Reference Range Interpretation Comments UA Ketones (test code = >=80 mg/dL UA Ketones) *NA*(03/14/2012 18:40:00) [facility] CenterYollchhPDDNDZBRTL0878-58-06 23:40:00 Test Item Value Reference Range Interpretation Comments UA Glucose (test code = >=1000 mg/dL A UA Glucose) *ABN*(03/14/2012 18:40:00) [facility] CenterHqdmfhcTOCCDZOFRN2782-48-44 23:40:00 Test Item Value Reference Range Interpretation Comments UA Blood (test code = Negative (03/14/2012 N UA Blood) 18:40:00) [facility] CenterLylevsvXFIFPSXLBX1198-08-62 23:40:00 Test Item Value Reference Range Interpretation Comments UA Nitrite (test code Negative (03/14/2012 N = UA Nitrite) 18:40:00) [facility] CenterDwglftnQLBJQFJWXN1168-12-70 23:40:00 Test Item Value Reference Range Interpretation Comments UA Urobilinogen (test code = UA 0.2 0.1-1.0 N Urobilinogen) [facility] CenterTjtoxsbULMWNLYMLS5026-62-29 23:40:00 Test Item Value Reference Range Interpretation Comments UA Leuk Est (test Negative (03/14/2012 N code = UA Leuk Est) 18:40:00) [facility] CenterMqnwatwFXAQPTUGZI9888-68-83 23:40:00 Test Item Value Reference Range Interpretation Comments UA Bili (test code = Negative *NA*(03/14/2012 UA Bili) 18:40:00) [facility] CenterHvpcrkjQCYTFFGIDV3277-45-78 23:40:00 Test Item Value Reference Range Interpretation Comments UA Turbidity (test code = Clear (03/14/2012 N UA Turbidity) 18:40:00) [facility] CenterKydrotuBCQVEQBDCA8326-18-46 23:40:00 Test Item Value Reference Range Interpretation Comments UA Color (test code = Yellow *NA*(03/14/2012 UA Color) 18:40:00) [facility] CenterBcwggslREXNCVRXRD9159-50-09 23:40:00 Test Item Value Reference Range Interpretation Comments UA Spec Grav (test >=1.030 A code = UA Spec Grav) *ABN*(03/14/2012 18:40:00) [facility] CenterOfgkfefVMUYAHHFKE3247-53-99 23:40:00 Test Item Value Reference Range Interpretation Comments UA Sq Epi (test code Occasional /LPF N = UA Sq Epi) (03/14/2012 18:40:00) [facility] CenterTvfxgypXZNKDPIZJM9775-21-85 23:40:00 Test Item Value Reference Range Interpretation Comments UA WBC (test code = UA 3-5 /HPF (03/14/2012 N WBC) 18:40:00) [facility]anoNxvvkjwOTCRKFIEWL8073-40-59 23:40:00 Test Item Value Reference Range Interpretation Comments UA Bacteria (test code Occasional /HPF N = UA Bacteria) (03/14/2012 18:40:00) [facility] CenterAqnqmtiJBBHQLGYJ3480-64-22 22:50:00 Test Item Value Reference Range Interpretation Comments S Preg (test code = S Negative *NA*(03/14/2012 Preg) 17:50:00) [facility] CenterMyauihoCRBPEZNAO5629-77-02 22:50:00 Test Item Value Reference Range Interpretation Comments Lipase Lvl (test code = Lipase Lvl) 45 73-393 L [facility] CenterVgypbmqDKINJOMYV4800-21-37 22:50:00 Test Item Value Reference Range Interpretation Comments A/G Ratio (test code = A/G Ratio) 1.2 0.7-1.6 N [facility] CenterWjoipwjSHQNQLFAN7817-83-76 22:50:00 Test Item Value Reference Range Interpretation Comments Globulin (test code = Globulin) 3.8 2.0-4.0 N [facility] CenterWbovluhNZFAFQUXQ1904-04-77 22:50:00 Test Item Value Reference Range Interpretation Comments B/C Ratio (test code = B/C Ratio) 21 6-25 N [facility] CenterRmkytmdJTVPSQTAW8686-78-95 22:50:00 Test Item Value Reference Range Interpretation Comments AGAP (test code = AGAP) 16.8 10.0-20.0 N [facility] CenterOoxprriODYJFUUFR8586-55-72 22:50:00 Test Item Value Reference Range Interpretation Comments Bili Total (test code = Bili Total) 1.1 0.2-1.3 N [facility] CenterGzjrfazSCIECHFUW6390-78-30 22:50:00 Test Item Value Reference Range Interpretation Comments Total Protein (test code = Total 8.2 6.4-8.4 N Protein) [facility] CenterAjxfljmPNZSXHBTH2423-28-71 22:50:00 Test Item Value Reference Range Interpretation Comments Potassium Lvl (test code = Potassium 3.8 3.5-5.1 N Lvl) [facility] CenterAibshnlWALAUHBFY3331-23-95 22:50:00 Test Item Value Reference Range Interpretation Comments Creatinine Lvl (test code = Creatinine 0.7 0.5-1.4 N Lvl) [facility] CenterFlwqmwkANHNKJDGH1915-29-26 22:50:00 Test Item Value Reference Range Interpretation Comments Sodium Lvl (test code = Sodium Lvl) 139 135-145 N [facility]YpzuahrBUGUEFINL1544-92-51 22:50:00 Test Item Value Reference Range Interpretation Comments Chloride Lvl (test code = Chloride Lvl) 99 95-109 N [facility] CenterFgbpxelGVKLXGWPL5468-56-68 22:50:00 Test Item Value Reference Range Interpretation Comments CO2 (test code = CO2) 27 24-32 N [facility] CenterSdxwpolPBPUXTDBC2969-00-59 22:50:00 Test Item Value Reference Range Interpretation Comments Glucose Lvl (test code = Glucose Lvl) 301 70-99 H [facility] CenterKdurdefRIVEZWBYE6021-56-34 22:50:00 Test Item Value Reference Range Interpretation Comments BUN (test code = BUN) 15 7-22 N [facility] CenterLnhxloqEMVEPSVCM1218-11-78 22:50:00 Test Item Value Reference Range Interpretation Comments ALT (test code = ALT) 24 See_Comment N [Auto mated message] The system which ge nerated this result transmit rohit reference range : <=65. The reference range was not used to interpr et this result as reji l/abnormal. [facility] CenterAappkelIZMGRBYEU6793-51-90 22:50:00 Test Item Value Reference Range Interpretation Comments AST (test code = AST) 20 See_Comment N [Auto mated message] The system which ge nerated this result transmit rohit reference range : <=37. The reference range was not used to interpr et this result as reji l/abnormal. [facility] CenterHgxigofPKKGMQLNJ0184-37-92 22:50:00 Test Item Value Reference Range Interpretation Comments Alk Phos (test code = Alk Phos) 67 39-136 N [facility] CenterPhruyqqCVVFCKGGB9986-32-73 22:50:00 Test Item Value Reference Range Interpretation Comments Albumin Lvl (test code = Albumin Lvl) 4.4 3.5-5.0 N [facility] CenterLrxywnqEEOROOQHJ3776-23-59 22:50:00 Test Item Value Reference Range Interpretation Comments Calcium Lvl (test code = Calcium Lvl) 9.9 8.5-10.5 N [facility]CelvzvgORPTSBFIFE3968-96-53 22:50:00 Test Item Value Reference Range Interpretation Comments MPV (test code = MPV) 11.8 7.4-10.4 [facility] HospitalTfnaoicTGFVQNGVPP1197-19-16 22:50:00 Test Item Value Reference Range Interpretation Comments MCHC (test code = MCHC) 35.9 32.0-36.0 N [facility] HospitalCnzrmspFOVJIIXRSK6241-35-63 22:50:00 Test Item Value Reference Range Interpretation Comments MCH (test code = MCH) 31.2 pg 27.0-31.0 H [facility] HospitalIxctvhkIQACGNVITL6151-47-78 22:50:00 Test Item Value Reference Range Interpretation Comments Platelet (test code = Platelet) 189 133-450 N [facility] HospitalYgoqmomTLUKYILNKH5633-27-82 22:50:00 Test Item Value Reference Range Interpretation Comments RDW (test code = RDW) 13.1 11.5-14.5 N [facility] HospitalFbjxyrdQCJHZLAWIP6804-53-88 22:50:00 Test Item Value Reference Range Interpretation Comments Hct (test code = Hct) 40.7 36.0-48.0 N [facility] HospitalBsarppkNBADEDCFOL3349-25-16 22:50:00 Test Item Value Reference Range Interpretation Comments Hgb (test code = Hgb) 14.6 12.0-16.0 N [facility] HospitalPlmbytdRFBTLTCITV0865-86-35 22:50:00 Test Item Value Reference Range Interpretation Comments MCV (test code = MCV) 87.0 81.0-99.0 N [facility] HospitalTzayqzpOUSMYLDQHE2162-55-29 22:50:00 Test Item Value Reference Range Interpretation Comments WBC (test code = WBC) 11.7 3.7-10.4 H [facility] HospitalDovrhpyLRCFBKHVLL6815-19-10 22:50:00 Test Item Value Reference Range Interpretation Comments RBC (test code = RBC) 4.68 4.20-5.40 N [facility] HospitalSgsspqiENJJQKJDMG7705-54-40 22:50:00 Test Item Value Reference Range Interpretation Comments Basophils # (test code 0.0 See_Comment N [Aut omated message] The = Basophils #) system which generated this result tra nsmitted reference range : <=0.2. The reference r leo was not used to int erpret this result as normal/abnormal . [facility] HospitalBqwkrixPXYFNNXLSK8965-85-26 22:50:00 Test Item Value Reference Range Interpretation Comments Basophils (test code = 0.2 See_Comment N [Aut omated message] The Basophils) system which ge nerated this result tra nsmitted reference range : <=1.0. The reference r leo was not used to int erpret this result as normal/abnormal . [facility] HospitalXjrzkwkFKWGRCWKND1038-03-18 22:50:00 Test Item Value Reference Range Interpretation Comments Eosinophils # (test code 0.0 See_Comment N [A utomated message] The = Eosinophils #) system whic h generated this result tra nsmitted reference range : <=0.5. The reference r leo was not used to int erpret this result as normal/abnormal . [facility] HospitalGdyuxypIKKMMOXGVY6503-46-53 22:50:00 Test Item Value Reference Range Interpretation Comments Monocytes # (test code 0.4 See_Comment N [Aut omated message] The = Monocytes #) system which generated this result tra nsmitted reference range : <=0.8. The reference r leo was not used to int erpret this result as normal/abnormal . [facility] HospitalBdfgyhpFEGVWKOEMP1467-32-69 22:50:00 Test Item Value Reference Range Interpretation Comments Segs-Bands # (test code = Segs-Bands #) 10.6 1.5-8.1 [facility] HospitalMhjbmhsMOWHTCVNPB8376-07-70 22:50:00 Test Item Value Reference Range Interpretation Comments Lymphocytes # (test code = Lymphocytes 0.7 1.0-5.5 L #) [facility] HospitalNbmcbwrPUQMIGYOIK1861-66-14 22:50:00 Test Item Value Reference Range Interpretation Comments Monocytes (test code = Monocytes) 3.4 2.0-12.0 N [facility] HospitalOizboxuBFFNPYCLSG0069-52-58 22:50:00 Test Item Value Reference Range Interpretation Comments Plt Morph (test code = Normal (03/14/2012 N Plt Morph) 17:50:00) [facility] HospitalHwyyulpBBHWKAULFR0341-44-43 22:50:00 Test Item Value Reference Range Interpretation Comments Lymphocytes (test code = Lymphocytes) 6.0 20.0-40.0 L [facility] HospitalFsvtszfMSAVMESTZR0921-47-93 22:50:00 Test Item Value Reference Range Interpretation Comments Eosinophils (test code = 0.0 See_Comment N [A utomated message] The Eosinophils) system which ge nerated this result tra nsmitted reference range : <=4.0. The reference r leo was not used to int erpret this result as normal/abnormal . [facility] HospitalLppueaeQQRVWOOJMX3585-13-62 22:50:00 Test Item Value Reference Range Interpretation Comments Segs (test code = Segs) 90.4 45.0-75.0 H [facility] HospitalAqyijvhMEARBXTPXK4225-37-11 22:50:00 Test Item Value Reference Range Interpretation Comments RBC Morph (test code = Normal (03/14/2012 N RBC Morph) 17:50:00) [facility] CenterAikkzomZJWPAYZVG7403-85-77 22:50:00 Test Item Value Reference Range Interpretation Comments S Preg (test code = S Negative *NA*(03/14/2012 Preg) 17:50:00) [facility] CenterAsbeqzjQROZILSEL8896-65-84 22:50:00 Test Item Value Reference Range Interpretation Comments Lipase Lvl (test code = Lipase Lvl) 45 73-393 L [facility] CenterWhpfrwvISBLHPWLP6227-31-79 22:50:00 Test Item Value Reference Range Interpretation Comments A/G Ratio (test code = A/G Ratio) 1.2 0.7-1.6 N [facility] CenterBayyiblJOOESKCJV6704-83-81 22:50:00 Test Item Value Reference Range Interpretation Comments Globulin (test code = Globulin) 3.8 2.0-4.0 N [facility] CenterNetfyapHHXUWWXCY8953-65-70 22:50:00 Test Item Value Reference Range Interpretation Comments B/C Ratio (test code = B/C Ratio) 21 6-25 N [facility] CenterNgtrhpqNXXHBJETU1263-65-20 22:50:00 Test Item Value Reference Range Interpretation Comments AGAP (test code = AGAP) 16.8 10.0-20.0 N [facility] CenterUapvirsUPQREIIZB7161-98-05 22:50:00 Test Item Value Reference Range Interpretation Comments Bili Total (test code = Bili Total) 1.1 0.2-1.3 N [facility] CenterWrxmddvCUOKRAVAW6884-71-73 22:50:00 Test Item Value Reference Range Interpretation Comments Total Protein (test code = Total 8.2 6.4-8.4 N Protein) [facility] CenterWgsvgozIKDBKYIMS4178-17-95 22:50:00 Test Item Value Reference Range Interpretation Comments Potassium Lvl (test code = Potassium 3.8 3.5-5.1 N Lvl) [facility] CenterHphxhquTEDBNJPYX2437-46-21 22:50:00 Test Item Value Reference Range Interpretation Comments Creatinine Lvl (test code = Creatinine 0.7 0.5-1.4 N Lvl) [facility] CenterRpqibloTIXVDYPNI4489-58-47 22:50:00 Test Item Value Reference Range Interpretation Comments Sodium Lvl (test code = Sodium Lvl) 139 135-145 N [facility] CenterIzkzcwyCMZCNBFPV0888-21-89 22:50:00 Test Item Value Reference Range Interpretation Comments Chloride Lvl (test code = Chloride Lvl) 99 95-109 N [facility] CenterHqifetxHNWJFNZIN7823-67-19 22:50:00 Test Item Value Reference Range Interpretation Comments CO2 (test code = CO2) 27 24-32 N [facility] CenterBdyenkdBTCXMSLUY3394-23-05 22:50:00 Test Item Value Reference Range Interpretation Comments Glucose Lvl (test code = Glucose Lvl) 301 70-99 H [facility] CenterEkomtzkIVIOBVTUM7754-29-51 22:50:00 Test Item Value Reference Range Interpretation Comments BUN (test code = BUN) 15 7-22 N [facility] CenterQsntuliGKOPCWXSA9078-82-84 22:50:00 Test Item Value Reference Range Interpretation Comments ALT (test code = ALT) 24 See_Comment N [Auto mated message] The system which nerated this result transmit rohit reference range : <=65. The reference range was not used to interpr et this result as reji l/abnormal. [facility] CenterKiohpopRPRLYEVIF6943-74-41 22:50:00 Test Item Value Reference Range Interpretation Comments AST (test code = AST) 20 See_Comment N [Auto mated message] The system which ge nerated this result transmit rohit reference range : <=37. The reference range was not used to interpr et this result as reji l/abnormal. [facility] CenterLymrydfVAGJPBHNB5498-90-68 22:50:00 Test Item Value Reference Range Interpretation Comments Alk Phos (test code = Alk Phos) 67 39-136 N [facility] CenterRormjwoJKKVEBVGB5683-83-74 22:50:00 Test Item Value Reference Range Interpretation Comments Albumin Lvl (test code = Albumin Lvl) 4.4 3.5-5.0 N [facility] CenterVgkolenJOVFWKZGO5861-65-35 22:50:00 Test Item Value Reference Range Interpretation Comments Calcium Lvl (test code = Calcium Lvl) 9.9 8.5-10.5 N [facility] HospitalIsakaomCGCQPYQPTV8390-04-52 22:50:00 Test Item Value Reference Range Interpretation Comments MPV (test code = MPV) 11.8 7.4-10.4 H [facility] HospitalHftcyxrAWPLXNBDQY5533-43-70 22:50:00 Test Item Value Reference Range Interpretation Comments MCHC (test code = MCHC) 35.9 32.0-36.0 N [facility] HospitalJyeszbdGFKLZWVFFD0592-98-53 22:50:00 Test Item Value Reference Range Interpretation Comments MCH (test code = MCH) 31.2 pg 27.0-31.0 H [facility] HospitalPfshounMZWATSHMII1842-73-95 22:50:00 Test Item Value Reference Range Interpretation Comments Platelet (test code = Platelet) 189 133-450 N [facility] HospitalJjeqgvqQLXXJADXGN8159-48-34 22:50:00 Test Item Value Reference Range Interpretation Comments RDW (test code = RDW) 13.1 11.5-14.5 N [facility] HospitalJyqklnuGRHKWYBNHL4860-56-46 22:50:00 Test Item Value Reference Range Interpretation Comments Hct (test code = Hct) 40.7 36.0-48.0 N [facility] HospitalEupvqirLKADEGJJZU4099-97-07 22:50:00 Test Item Value Reference Range Interpretation Comments Hgb (test code = Hgb) 14.6 12.0-16.0 N [facility] HospitalSsyogvnKOPBCPIYMI1948-12-42 22:50:00 Test Item Value Reference Range Interpretation Comments MCV (test code = MCV) 87.0 81.0-99.0 N [facility] HospitalXfxupilFFXXXVHGNL8238-34-15 22:50:00 Test Item Value Reference Range Interpretation Comments WBC (test code = WBC) 11.7 3.7-10.4 H [facility] HospitalOumtrthLHDGWKSKIE9791-03-31 22:50:00 Test Item Value Reference Range Interpretation Comments RBC (test code = RBC) 4.68 4.20-5.40 N [facility] HospitalWnyetvdFZMWDPDJGV2022-72-51 22:50:00 Test Item Value Reference Range Interpretation Comments Basophils # (test code 0.0 See_Comment N [Aut omated message] The = Basophils #) system which generated this result tra nsmitted reference range : <=0.2. The reference r leo was not used to int erpret this result as normal/abnormal . [facility] HospitalUklndqvBMPBDMARYN9399-77-76 22:50:00 Test Item Value Reference Range Interpretation Comments Basophils (test code = 0.2 See_Comment N [Aut omated message] The Basophils) system which ge nerated this result tra nsmitted reference range : <=1.0. The reference r leo was not used to int erpret this result as normal/abnormal . [facility] HospitalIwxoljyOVWBPKJTAK4619-26-43 22:50:00 Test Item Value Reference Range Interpretation Comments Eosinophils # (test code 0.0 See_Comment N [A utomated message] The = Eosinophils #) system whic h generated this result tra nsmitted reference range : <=0.5. The reference r leo was not used to int erpret this result as normal/abnormal . [facility] HospitalShbmjcxGWBMSGVEKP5667-41-42 22:50:00 Test Item Value Reference Range Interpretation Comments Monocytes # (test code 0.4 See_Comment N [Aut omated message] The = Monocytes #) system which generated this result tra nsmitted reference range : <=0.8. The reference r leo was not used to int erpret this result as normal/abnormal . [facility] HospitalNpsruyyPRSTBIFQAJ1849-94-65 22:50:00 Test Item Value Reference Range Interpretation Comments Segs-Bands # (test code = Segs-Bands #) 10.6 1.5-8.1 [facility] HospitalKvfanmuMFIVTCOLYC6886-67-31 22:50:00 Test Item Value Reference Range Interpretation Comments Lymphocytes # (test code = Lymphocytes 0.7 1.0-5.5 L #) [facility] HospitalWfkudztEQYVVIHPVY0549-02-04 22:50:00 Test Item Value Reference Range Interpretation Comments Monocytes (test code = Monocytes) 3.4 2.0-12.0 N [facility] HospitalGodfmbcYVHTPMNKWR6098-94-92 22:50:00 Test Item Value Reference Range Interpretation Comments Plt Morph (test code = Normal (03/14/2012 N Plt Morph) 17:50:00) [facility] HospitalSztvrugUCCRQFSBLD7537-61-91 22:50:00 Test Item Value Reference Range Interpretation Comments Lymphocytes (test code = Lymphocytes) 6.0 20.0-40.0 L [facility] HospitalSfqddauKASFGQRLRX2067-76-41 22:50:00 Test Item Value Reference Range Interpretation Comments Eosinophils (test code = 0.0 See_Comment N [A utomated message] The Eosinophils) system which ge nerated this result tra nsmitted reference range : <=4.0. The reference r leo was not used to int erpret this result as normal/abnormal . [facility] HospitalYzphxjtYAWFQWVWLW6610-36-57 22:50:00 Test Item Value Reference Range Interpretation Comments Segs (test code = Segs) 90.4 45.0-75.0 H [facility] HospitalPkqippiKKOHNBRKVV5739-87-76 22:50:00 Test Item Value Reference Range Interpretation Comments RBC Morph (test code = Normal (03/14/2012 N RBC Morph) 17:50:00) [facility] CenterWnteuqhDHSLXVRPU8382-12-24 22:50:00 Test Item Value Reference Range Interpretation Comments S Preg (test code = S Negative *NA*(03/14/2012 Preg) 17:50:00) [facility] CenterPjhmaarLRWXDBDLF6694-46-47 22:50:00 Test Item Value Reference Range Interpretation Comments Lipase Lvl (test code = Lipase Lvl) 45 73-393 L [facility] CenterIorxfomFNWJPXZVS2805-08-48 22:50:00 Test Item Value Reference Range Interpretation Comments A/G Ratio (test code = A/G Ratio) 1.2 0.7-1.6 N [facility] CenterNfsawfxFONNYFKHU1198-51-48 22:50:00 Test Item Value Reference Range Interpretation Comments Globulin (test code = Globulin) 3.8 2.0-4.0 N [facility] CenterHbunjnyEXETMUZOX6535-49-67 22:50:00 Test Item Value Reference Range Interpretation Comments B/C Ratio (test code = B/C Ratio) 21 6-25 N [facility] CenterUjdcqtpHXFILELHI7792-41-86 22:50:00 Test Item Value Reference Range Interpretation Comments AGAP (test code = AGAP) 16.8 10.0-20.0 N [facility] CenterPtyyqqiWLEPZWNCS2268-83-12 22:50:00 Test Item Value Reference Range Interpretation Comments Bili Total (test code = Bili Total) 1.1 0.2-1.3 N [facility] CenterCondhteBOTYJELFL0357-16-80 22:50:00 Test Item Value Reference Range Interpretation Comments Total Protein (test code = Total 8.2 6.4-8.4 N Protein) [facility] CenterTuveriaMLYYLJISB4401-19-36 22:50:00 Test Item Value Reference Range Interpretation Comments Potassium Lvl (test code = Potassium 3.8 3.5-5.1 N Lvl) [facility] CenterKobzrdaODFFSLSYB9930-31-43 22:50:00 Test Item Value Reference Range Interpretation Comments Creatinine Lvl (test code = Creatinine 0.7 0.5-1.4 N Lvl) [facility] CenterXywugujDMMTIVCQE4430-77-22 22:50:00 Test Item Value Reference Range Interpretation Comments Sodium Lvl (test code = Sodium Lvl) 139 135-145 N [facility] CenterAlkjnivUYXLWPTZO1570-00-98 22:50:00 Test Item Value Reference Range Interpretation Comments Chloride Lvl (test code = Chloride Lvl) 99 95-109 N [facility] CenterKzfmodvHUYBGCZFQ8147-51-83 22:50:00 Test Item Value Reference Range Interpretation Comments CO2 (test code = CO2) 27 24-32 N [facility] CenterVfudbwiBZBBMOBGD7001-42-52 22:50:00 Test Item Value Reference Range Interpretation Comments Glucose Lvl (test code = Glucose Lvl) 301 70-99 H [facility] CenterSbyuzypJIGFQBIYN9099-09-83 22:50:00 Test Item Value Reference Range Interpretation Comments BUN (test code = BUN) 15 7-22 N [facility] CenterVwbcnrdOVUYVTMPY4688-79-26 22:50:00 Test Item Value Reference Range Interpretation Comments ALT (test code = ALT) 24 See_Comment N [Auto mated message] The system which ge nerated this result transmit rohit reference range : <=65. The reference range was not used to interpr et this result as reji l/abnormal. [facility] CenterEsrubguJETPPAHRO9395-37-98 22:50:00 Test Item Value Reference Range Interpretation Comments AST (test code = AST) 20 See_Comment N [Auto mated message] The system which ge nerated this result transmit rohit reference range : <=37. The reference range was not used to interpr et this result as erji l/abnormal. [place] 045392-09-24 22:50:00 Test Item Value Reference Range Interpretation Comments Alk Phos (test code = Alk Phos) 67 39-136 N [facility] CenterIzepzhrJKJGCTWGO0612-49-24 22:50:00 Test Item Value Reference Range Interpretation Comments Albumin Lvl (test code = Albumin Lvl) 4.4 3.5-5.0 N [facility] CenterXjxspjwQFVDHFTKN9423-44-80 22:50:00 Test Item Value Reference Range Interpretation Comments Calcium Lvl (test code = Calcium Lvl) 9.9 8.5-10.5 N [facility] HospitalYytqmecIYVWYZICJJ4861-36-94 22:50:00 Test Item Value Reference Range Interpretation Comments MPV (test code = MPV) 11.8 7.4-10.4 H [facility] HospitalSnxivryMGUQOJDNNE4300-24-24 22:50:00 Test Item Value Reference Range Interpretation Comments MCHC (test code = MCHC) 35.9 32.0-36.0 N [facility] HospitalMojilrdBWPBARBSMA3911-83-19 22:50:00 Test Item Value Reference Range Interpretation Comments MCH (test code = MCH) 31.2 pg 27.0-31.0 H [facility] HospitalGjfbqklFPBHYKBLWO4155-18-81 22:50:00 Test Item Value Reference Range Interpretation Comments Platelet (test code = Platelet) 189 133-450 N [facility] HospitalCjbmtynUFSMTOISTY0408-51-10 22:50:00 Test Item Value Reference Range Interpretation Comments RDW (test code = RDW) 13.1 11.5-14.5 N [facility] HospitalYepltrrFXCDGQTHOH2430-17-30 22:50:00 Test Item Value Reference Range Interpretation Comments Hct (test code = Hct) 40.7 36.0-48.0 N [facility] HospitalFkoaorbMCRQOZFKLV9578-92-67 22:50:00 Test Item Value Reference Range Interpretation Comments Hgb (test code = Hgb) 14.6 12.0-16.0 N [facility] HospitalNnroulyZGTSUHEWGX4552-40-58 22:50:00 Test Item Value Reference Range Interpretation Comments MCV (test code = MCV) 87.0 81.0-99.0 N [facility] HospitalWcjefzdVUYUTIFEXI1763-06-54 22:50:00 Test Item Value Reference Range Interpretation Comments WBC (test code = WBC) 11.7 3.7-10.4 H [facility] HospitalCgucbjhRMKCQBONLS8574-20-56 22:50:00 Test Item Value Reference Range Interpretation Comments RBC (test code = RBC) 4.68 4.20-5.40 N [facility] HospitalXvhdfylWORVUSNIIB0669-38-90 22:50:00 Test Item Value Reference Range Interpretation Comments Basophils # (test code 0.0 See_Comment N [Aut omated message] The = Basophils #) system which generated this result tra nsmitted reference range : <=0.2. The reference r leo was not used to int erpret this result as normal/abnormal . [facility] HospitalZwxgkoiPUIUHNRQXC4078-71-62 22:50:00 Test Item Value Reference Range Interpretation Comments Basophils (test code = 0.2 See_Comment N [Aut omated message] The Basophils) system which ge nerated this result tra nsmitted reference range : <=1.0. The reference r leo was not used to int erpret this result as normal/abnormal . [facility] HospitalRevydccXMSGNRERYV9312-38-61 22:50:00 Test Item Value Reference Range Interpretation Comments Eosinophils # (test code 0.0 See_Comment N [A utomated message] The = Eosinophils #) system whic h generated this result tra nsmitted reference range : <=0.5. The reference r leo was not used to int erpret this result as normal/abnormal . [facility] HospitalUagzzhqLEEXYPXPFD0433-18-58 22:50:00 Test Item Value Reference Range Interpretation Comments Monocytes # (test code 0.4 See_Comment N [Aut omated message] The = Monocytes #) system which generated this result tra nsmitted reference range : <=0.8. The reference r leo was not used to int erpret this result as normal/abnormal . [facility] HospitalZxmeegvWJWXKIWRJA4263-33-68 22:50:00 Test Item Value Reference Range Interpretation Comments Segs-Bands # (test code = Segs-Bands #) 10.6 1.5-8.1 H [facility] HospitalLfgefcbYFUTMQDCQR5879-00-23 22:50:00 Test Item Value Reference Range Interpretation Comments Lymphocytes # (test code = Lymphocytes 0.7 1.0-5.5 L #) [facility] HospitalDcsozsaJCJOLCIYSA4075-41-87 22:50:00 Test Item Value Reference Range Interpretation Comments Monocytes (test code = Monocytes) 3.4 2.0-12.0 N [facility] HospitalAmirdbvELHWQIYPSG8860-67-66 22:50:00 Test Item Value Reference Range Interpretation Comments Plt Morph (test code = Normal (03/14/2012 N Plt Morph) 17:50:00) [facility] HospitalPnhhisbHGOSMKXMAE1909-17-84 22:50:00 Test Item Value Reference Range Interpretation Comments Lymphocytes (test code = Lymphocytes) 6.0 20.0-40.0 L [facility] HospitalEogfhnfDRWTEZJJKN7292-35-07 22:50:00 Test Item Value Reference Range Interpretation Comments Eosinophils (test code = 0.0 See_Comment N [A utomated message] The Eosinophils) system which ge nerated this result tra nsmitted reference range : <=4.0. The reference r leo was not used to int erpret this result as normal/abnormal . [facility] HospitalXyapwjsADOOGXULBM2341-48-03 22:50:00 Test Item Value Reference Range Interpretation Comments Segs (test code = Segs) 90.4 45.0-75.0 H [facility] HospitalCrddgtsPACWEZUVEQ4676-30-26 22:50:00 Test Item Value Reference Range Interpretation Comments RBC Morph (test code = Normal (03/14/2012 N RBC Morph) 17:50:00) [facility] CenterCjednvgKBKNKISLX2771-14-92 22:50:00 Test Item Value Reference Range Interpretation Comments S Preg (test code = S Negative *NA*(03/14/2012 Preg) 17:50:00) [facility] CenterXgcqginIOXBCUQUC9366-18-05 22:50:00 Test Item Value Reference Range Interpretation Comments Lipase Lvl (test code = Lipase Lvl) 45 73-393 L [facility] CenterOycxmxlYSTLEUKJR0341-48-94 22:50:00 Test Item Value Reference Range Interpretation Comments A/G Ratio (test code = A/G Ratio) 1.2 0.7-1.6 N [facility] CenterVivptlvOIPKELLEJ4318-29-58 22:50:00 Test Item Value Reference Range Interpretation Comments Globulin (test code = Globulin) 3.8 2.0-4.0 N [facility] CenterUjxekpfOPXQVAKLP9762-69-84 22:50:00 Test Item Value Reference Range Interpretation Comments B/C Ratio (test code = B/C Ratio) 21 6-25 N [facility] CenterDcmwfmyFMQCFSWMI4553-69-89 22:50:00 Test Item Value Reference Range Interpretation Comments AGAP (test code = AGAP) 16.8 10.0-20.0 N [facility] CenterMtgixbwNEHCWXMWO8809-87-90 22:50:00 Test Item Value Reference Range Interpretation Comments Bili Total (test code = Bili Total) 1.1 0.2-1.3 N [facility] CenterJbxrcrzRPLEKXDED0794-90-34 22:50:00 Test Item Value Reference Range Interpretation Comments Total Protein (test code = Total 8.2 6.4-8.4 N Protein) [facility] CenterStxzijjKBKFJNLAB8401-92-00 22:50:00 Test Item Value Reference Range Interpretation Comments Potassium Lvl (test code = Potassium 3.8 3.5-5.1 N Lvl) [facility] CenterSofvsnxMNGBROQYV1415-05-01 22:50:00 Test Item Value Reference Range Interpretation Comments Creatinine Lvl (test code = Creatinine 0.7 0.5-1.4 N Lvl) [facility] CenterEijzeaqRUTETLMLA4369-14-76 22:50:00 Test Item Value Reference Range Interpretation Comments Sodium Lvl (test code = Sodium Lvl) 139 135-145 N [facility] CenterKkvywnmTCHASGODW4194-20-31 22:50:00 Test Item Value Reference Range Interpretation Comments Chloride Lvl (test code = Chloride Lvl) 99 95-109 N [facility] CenterZehvogcLQQSUPRCT5925-30-25 22:50:00 Test Item Value Reference Range Interpretation Comments CO2 (test code = CO2) 27 24-32 N [facility] CenterXrcyxdwGMZIHFJMW0258-15-56 22:50:00 Test Item Value Reference Range Interpretation Comments Glucose Lvl (test code = Glucose Lvl) 301 70-99 H [facility] CenterGuwmmogOEJHYSCZP6521-67-73 22:50:00 Test Item Value Reference Range Interpretation Comments BUN (test code = BUN) 15 7-22 N [facility] CenterPnsyopzEGBSBXQXK7305-76-62 22:50:00 Test Item Value Reference Range Interpretation Comments ALT (test code = ALT) 24 See_Comment N [Auto mated message] The system which ge nerated this result transmit rohit reference range : <=65. The reference range was not used to interpr et this result as reji l/abnormal. [facility] CenterJlsctnyBQKHBNYQX0504-54-17 22:50:00 Test Item Value Reference Range Interpretation Comments AST (test code = AST) 20 See_Comment N [Auto mated message] The system which ge nerated this result transmit rohit reference range : <=37. The reference range was not used to interpr et this result as reji l/abnormal. [facility] CenterDhexnszWANWDANMG1152-47-20 22:50:00 Test Item Value Reference Range Interpretation Comments Alk Phos (test code = Alk Phos) 67 39-136 N [facility] CenterWihawctZXMLAUBIK3185-75-25 22:50:00 Test Item Value Reference Range Interpretation Comments Albumin Lvl (test code = Albumin Lvl) 4.4 3.5-5.0 N [facility] CenterRiespqxAJLKSVEBM3447-14-61 22:50:00 Test Item Value Reference Range Interpretation Comments Calcium Lvl (test code = Calcium Lvl) 9.9 8.5-10.5 N [facility]LaoayqzSXLISRWNDR7075-92-90 22:50:00 Test Item Value Reference Range Interpretation Comments MPV (test code = MPV) 11.8 7.4-10.4 H [facility] HospitalBrjebarDITMUOAIZH0760-11-34 22:50:00 Test Item Value Reference Range Interpretation Comments MCHC (test code = MCHC) 35.9 32.0-36.0 N [facility] HospitalEqyrwhwSFJOKYGLSV8500-63-02 22:50:00 Test Item Value Reference Range Interpretation Comments MCH (test code = MCH) 31.2 pg 27.0-31.0 H [facility] HospitalDbmwvzgCXQJRNTRCT4706-02-77 22:50:00 Test Item Value Reference Range Interpretation Comments Platelet (test code = Platelet) 189 133-450 N [facility] HospitalGwejspdUTHISVKWIN8998-08-22 22:50:00 Test Item Value Reference Range Interpretation Comments RDW (test code = RDW) 13.1 11.5-14.5 N [facility] HospitalApbolpaPNAYTHEFTK5153-45-31 22:50:00 Test Item Value Reference Range Interpretation Comments Hct (test code = Hct) 40.7 36.0-48.0 N [facility] HospitalLuojzljGAOVPJRYLP9151-00-08 22:50:00 Test Item Value Reference Range Interpretation Comments Hgb (test code = Hgb) 14.6 12.0-16.0 N [facility] HospitalDycpbpqCGDFMXQOAR5653-55-50 22:50:00 Test Item Value Reference Range Interpretation Comments MCV (test code = MCV) 87.0 81.0-99.0 N [facility] HospitalTozxcjhSSTTQVJVNL5805-56-38 22:50:00 Test Item Value Reference Range Interpretation Comments WBC (test code = WBC) 11.7 3.7-10.4 H [facility] HospitalDeznjgwYAMASLSFMR7787-23-56 22:50:00 Test Item Value Reference Range Interpretation Comments RBC (test code = RBC) 4.68 4.20-5.40 N [facility] HospitalBimmnjbOLXLVMQHLZ4771-62-60 22:50:00 Test Item Value Reference Range Interpretation Comments Basophils # (test code 0.0 See_Comment N [Aut omated message] The = Basophils #) system which generated this result tra nsmitted reference range : <=0.2. The reference r leo was not used to int erpret this result as normal/abnormal . [facility] HospitalCzkzjskRZTEVLRMRE7912-15-56 22:50:00 Test Item Value Reference Range Interpretation Comments Basophils (test code = 0.2 See_Comment N [Aut omated message] The Basophils) system which ge nerated this result tra nsmitted reference range : <=1.0. The reference r leo was not used to int erpret this result as normal/abnormal . [facility] HospitalPqcgyxgTLEJPLTUCP5289-42-63 22:50:00 Test Item Value Reference Range Interpretation Comments Eosinophils # (test code 0.0 See_Comment N [A utomated message] The = Eosinophils #) system whic h generated this result tra nsmitted reference range : <=0.5. The reference r leo was not used to int erpret this result as normal/abnormal . [facility] HospitalGzobqouCWKYMQFRRY9831-15-79 22:50:00 Test Item Value Reference Range Interpretation Comments Monocytes # (test code 0.4 See_Comment N [Aut omated message] The = Monocytes #) system which generated this result tra nsmitted reference range : <=0.8. The reference r leo was not used to int erpret this result as normal/abnormal . [facility] HospitalYjumwmkSCFBCJGIOE4258-64-18 22:50:00 Test Item Value Reference Range Interpretation Comments Segs-Bands # (test code = Segs-Bands #) 10.6 1.5-8.1 H [facility] HospitalIvkankxWHZHOUZZHB9121-10-71 22:50:00 Test Item Value Reference Range Interpretation Comments Lymphocytes # (test code = Lymphocytes 0.7 1.0-5.5 L #) [facility] HospitalBljlkxnFPODIPHCEO6553-52-01 22:50:00 Test Item Value Reference Range Interpretation Comments Monocytes (test code = Monocytes) 3.4 2.0-12.0 N [facility] HospitalTnpiydqIJYQCUPJWC4438-10-57 22:50:00 Test Item Value Reference Range Interpretation Comments Plt Morph (test code = Normal (03/14/2012 N Plt Morph) 17:50:00) [facility] HospitalKhhrhlkBUCMGUDOBW3031-12-94 22:50:00 Test Item Value Reference Range Interpretation Comments Lymphocytes (test code = Lymphocytes) 6.0 20.0-40.0 L [facility] HospitalWcaqfogQCRRBUTXPZ2458-98-35 22:50:00 Test Item Value Reference Range Interpretation Comments Eosinophils (test code = 0.0 See_Comment N [A utomated message] The Eosinophils) system which ge nerated this result tra nsmitted reference range : <=4.0. The reference r leo was not used to int erpret this result as normal/abnormal . [facility] HospitalPybjadlGEZVNLZXDL6522-33-96 22:50:00 Test Item Value Reference Range Interpretation Comments Segs (test code = Segs) 90.4 45.0-75.0 H [facility] HospitalJppwmnbCCADGCQYZR4173-32-85 22:50:00 Test Item Value Reference Range Interpretation Comments RBC Morph (test code = Normal (03/14/2012 N RBC Morph) 17:50:00) [facility] CenterJxjhpilUARRXVBYL5262-98-03 22:50:00 Test Item Value Reference Range Interpretation Comments S Preg (test code = S Negative *NA*(03/14/2012 Preg) 17:50:00) [facility] CenterKnbwhkqDDTPWWUFY9780-65-40 22:50:00 Test Item Value Reference Range Interpretation Comments Lipase Lvl (test code = Lipase Lvl) 45 73-393 L [facility] CenterAxzuuxyLPCGHLCAV9078-60-85 22:50:00 Test Item Value Reference Range Interpretation Comments A/G Ratio (test code = A/G Ratio) 1.2 0.7-1.6 N [facility] CenterMcofdesSLQWEGTCD3220-98-75 22:50:00 Test Item Value Reference Range Interpretation Comments Globulin (test code = Globulin) 3.8 2.0-4.0 N [facility] CenterGjtyhjaLLHURZRYA7859-05-85 22:50:00 Test Item Value Reference Range Interpretation Comments B/C Ratio (test code = B/C Ratio) 21 6-25 N [facility] CenterRnnaiijQAZSJTDUB9391-23-71 22:50:00 Test Item Value Reference Range Interpretation Comments AGAP (test code = AGAP) 16.8 10.0-20.0 N [facility] CenterGdlsduwEKJIAZUOH4097-05-91 22:50:00 Test Item Value Reference Range Interpretation Comments Bili Total (test code = Bili Total) 1.1 0.2-1.3 N [facility] CenterCvmatddYQNXSLJUU1076-37-57 22:50:00 Test Item Value Reference Range Interpretation Comments Total Protein (test code = Total 8.2 6.4-8.4 N Protein) [facility] CenterBiumchxDTTFTSHUH6402-64-66 22:50:00 Test Item Value Reference Range Interpretation Comments Potassium Lvl (test code = Potassium 3.8 3.5-5.1 N Lvl) [facility] CenterVoyqszdHRJIMHFQX5707-80-28 22:50:00 Test Item Value Reference Range Interpretation Comments Creatinine Lvl (test code = Creatinine 0.7 0.5-1.4 N Lvl) [facility] CenterFjfdenwOHIHHLBTY8212-66-79 22:50:00 Test Item Value Reference Range Interpretation Comments Sodium Lvl (test code = Sodium Lvl) 139 135-145 N [facility] CenterAzfskkfUOSYYSPOT0492-50-31 22:50:00 Test Item Value Reference Range Interpretation Comments Chloride Lvl (test code = Chloride Lvl) 99 95-109 N [facility] CenterGzgujtoIZQQLEYYB7304-95-06 22:50:00 Test Item Value Reference Range Interpretation Comments CO2 (test code = CO2) 27 24-32 N [facility] CenterSmrvujgGEIERLBWZ8666-64-15 22:50:00 Test Item Value Reference Range Interpretation Comments Glucose Lvl (test code = Glucose Lvl) 301 70-99 H [facility] CenterTvqdohwKEXHRXVLL2313-46-74 22:50:00 Test Item Value Reference Range Interpretation Comments BUN (test code = BUN) 15 7-22 N [facility] CenterDkjrhakBQYDEMWLI3209-75-13 22:50:00 Test Item Value Reference Range Interpretation Comments ALT (test code = ALT) 24 See_Comment N [Auto mated message] The system which ge nerated this result transmit rohit reference range : <=65. The reference range was not used to interpr et this result as reji l/abnormal. [facility] CenterPhkkspxOODBSBZQM5640-92-87 22:50:00 Test Item Value Reference Range Interpretation Comments AST (test code = AST) 20 See_Comment N [Auto mated message] The system which ge nerated this result transmit rohit reference range : <=37. The reference range was not used to interpr et this result as reji l/abnormal. [facility] CenterNkrepytYPUOQMVJV6463-27-46 22:50:00 Test Item Value Reference Range Interpretation Comments Alk Phos (test code = Alk Phos) 67 39-136 N [facility] CenterMqruvavDXCZQYXHE0144-89-51 22:50:00 Test Item Value Reference Range Interpretation Comments Albumin Lvl (test code = Albumin Lvl) 4.4 3.5-5.0 N [facility] CenterBdsiyvmXRWRHBRZW8916-41-98 22:50:00 Test Item Value Reference Range Interpretation Comments Calcium Lvl (test code = Calcium Lvl) 9.9 8.5-10.5 N [facility] HospitalYvoeuejAFUXQKDLZD7713-29-29 22:50:00 Test Item Value Reference Range Interpretation Comments MPV (test code = MPV) 11.8 7.4-10.4 H [facility] HospitalZyauokuZIFFSOZYAC1165-65-41 22:50:00 Test Item Value Reference Range Interpretation Comments MCHC (test code = MCHC) 35.9 32.0-36.0 N [facility] HospitalFnaavhzXLHJIQTWVE0961-71-95 22:50:00 Test Item Value Reference Range Interpretation Comments MCH (test code = MCH) 31.2 pg 27.0-31.0 H [facility] HospitalEbxkyymUGPVMZHAGC2054-91-29 22:50:00 Test Item Value Reference Range Interpretation Comments Platelet (test code = Platelet) 189 133-450 N [facility] HospitalPhovahxWEKZZNHTMM2374-50-13 22:50:00 Test Item Value Reference Range Interpretation Comments RDW (test code = RDW) 13.1 11.5-14.5 N [facility] HospitalAtxtkryRAIXPVSFAH5300-94-37 22:50:00 Test Item Value Reference Range Interpretation Comments Hct (test code = Hct) 40.7 36.0-48.0 N [facility] HospitalGihrwcsLXAZTSKETC3499-77-79 22:50:00 Test Item Value Reference Range Interpretation Comments Hgb (test code = Hgb) 14.6 12.0-16.0 N [facility] HospitalYlfvwjqYPHGKSUDJC0327-60-83 22:50:00 Test Item Value Reference Range Interpretation Comments MCV (test code = MCV) 87.0 81.0-99.0 N [facility] HospitalYutiaspKGXWANFLXU5788-53-57 22:50:00 Test Item Value Reference Range Interpretation Comments WBC (test code = WBC) 11.7 3.7-10.4 H [facility] HospitalVlfpsdqJUEWEDSSZR7717-00-86 22:50:00 Test Item Value Reference Range Interpretation Comments RBC (test code = RBC) 4.68 4.20-5.40 N [facility] HospitalHhzqfhhOODBLFCPKX5814-57-11 22:50:00 Test Item Value Reference Range Interpretation Comments Basophils # (test code 0.0 See_Comment N [Aut omated message] The = Basophils #) system which generated this result tra nsmitted reference range : <=0.2. The reference r leo was not used to int erpret this result as normal/abnormal . [facility] HospitalWlyubutFAPVMKNNLC2436-91-88 22:50:00 Test Item Value Reference Range Interpretation Comments Basophils (test code = 0.2 See_Comment N [Aut omated message] The Basophils) system which ge nerated this result tra nsmitted reference range : <=1.0. The reference r leo was not used to int erpret this result as normal/abnormal . [facility] HospitalTsphyvdAXFVRGSMRP4838-26-07 22:50:00 Test Item Value Reference Range Interpretation Comments Eosinophils # (test code 0.0 See_Comment N [A utomated message] The = Eosinophils #) system whic h generated this result tra nsmitted reference range : <=0.5. The reference r leo was not used to int erpret this result as normal/abnormal . [facility] HospitalWzogpbxLOKTHFMDKG2333-99-95 22:50:00 Test Item Value Reference Range Interpretation Comments Monocytes # (test code 0.4 See_Comment N [Aut omated message] The = Monocytes #) system which generated this result tra nsmitted reference range : <=0.8. The reference r leo was not used to int erpret this result as normal/abnormal . [facility] HospitalZnxgptjNXKOFDSDUW8180-52-32 22:50:00 Test Item Value Reference Range Interpretation Comments Segs-Bands # (test code = Segs-Bands #) 10.6 1.5-8.1 H [facility] HospitalLtpjqxrUBNCBCXUIX6957-49-99 22:50:00 Test Item Value Reference Range Interpretation Comments Lymphocytes # (test code = Lymphocytes 0.7 1.0-5.5 L #) [facility] HospitalMvsnxurXUXGRHHPVP9489-04-84 22:50:00 Test Item Value Reference Range Interpretation Comments Monocytes (test code = Monocytes) 3.4 2.0-12.0 N [facility] HospitalTlvarqnKGMWYSBUOO9598-85-58 22:50:00 Test Item Value Reference Range Interpretation Comments Plt Morph (test code = Normal (03/14/2012 N Plt Morph) 17:50:00) [facility] HospitalWcwmgtdCKFPWWHEVG4801-05-66 22:50:00 Test Item Value Reference Range Interpretation Comments Lymphocytes (test code = Lymphocytes) 6.0 20.0-40.0 L [facility] HospitalWznqimoTNSUERVDAO7052-26-43 22:50:00 Test Item Value Reference Range Interpretation Comments Eosinophils (test code = 0.0 See_Comment N [A utomated message] The Eosinophils) system which ge nerated this result tra nsmitted reference range : <=4.0. The reference r leo was not used to int erpret this result as normal/abnormal . [facility] HospitalZzetwwkQZZNLEYBEF2505-59-22 22:50:00 Test Item Value Reference Range Interpretation Comments Segs (test code = Segs) 90.4 45.0-75.0 H [facility] HospitalNxzgpgcUJYYBKHZOB8598-72-43 22:50:00 Test Item Value Reference Range Interpretation Comments RBC Morph (test code = Normal (03/14/2012 N RBC Morph) 17:50:00) [facility] GLUCOSE NMREKFS8402-85-70 23:43:00 Test Item Value Reference Range Interpretation Comments Gluc POC Lifscn (test code = Gluc POC 167 70-99 H Lifscn) [facility] GLUCOSE REOFRJY3732-09-69 23:43:00 Test Item Value Reference Range Interpretation Comments Comment1 (test code = Comment1) Notify RN/MD [facility] GLUCOSE IZOUAWV5914-17-11 23:43:00 Test Item Value Reference Range Interpretation Comments Comment2 (test code = Comment2) Sliding Scale [facility] GLUCOSE [id number] 23:43:00 Test Item Value Reference Range Interpretation Comments Gluc POC Lifscn (test code = Gluc POC 167 70-99 H Lifscn) [facility] KLKCVZW9202-25-00 23:43:00 Test Item Value Reference Range Interpretation Comments Comment1 (test code = Comment1) Notify RN/ [facility] GLU[facility] TGVEIEJ9225-08-63 23:43:00 Test Item Value Reference Range Interpretation Comments Comment2 (test code = Comment2) Sliding Scale [facility] GLU[facility]SE XOHBOLZ2895-75-57 23:43:00 Test Item Value Reference Range Interpretation Comments Gluc POC Lifscn (test code = Gluc POC 167 70-99 H Lifscn) [facility] GLU[facility]SE VWTSDZF5746-10-66 23:43:00 Test Item Value Reference Range Interpretation Comments Comment1 (test code = Comment1) Notify RN/ [facility] GLUCOSE EODSDGA3491-07-00 23:43:00 Test Item Value Reference Range Interpretation Comments Comment2 (test code = Comment2) Sliding Scale [facility] GLU[facility]SE WMILCHI8943-29-90 23:43:00 Test Item Value Reference Range Interpretation Comments Gluc POC Lifscn (test code = Gluc POC 167 70-99 H Lifscn) [facility] GLU[facility]SE [id number] 23:43:00 Test Item Value Reference Range Interpretation Comments Comment1 (test code = Comment1) Notify RN/ [facility] GLU[facility]SE [id number] 23:43:00 Test Item Value Reference Range Interpretation Comments Comment2 (test code = Comment2) Sliding Scale [facility] GLU[facility]SE DKVGURU5016-37-91 23:43:00 Test Item Value Reference Range Interpretation Comments Gluc POC Lifscn (test code = Gluc POC 167 70-99 H Lifscn) [facility] GLU[facility]SE [id number] 23:43:00 Test Item Value Reference Range Interpretation Comments Comment1 (test code = Comment1) Notify RN/ [facility] GLUCOSE [id number] 23:43:00 Test Item Value Reference Range Interpretation Comments Comment2 (test code = Comment2) Sliding Scale [facility] GLU[facility]SE YRDEFMV1841-44-47 17:40:00 Test Item Value Reference Range Interpretation Comments Gluc POC Lifscn (test code = Gluc POC 189 70-99 H Lifscn) [facility] GLUCOSE [id number] 17:40:00 Test Item Value Reference Range Interpretation Comments Comment1 (test code = Comment1) [facility] RN/ [facility] GLUCOSE [id number] 17:40:00 Test Item Value Reference Range Interpretation Comments Comment2 (test code = Comment2) Sliding Scale [facility] GLUCOSE [id number] 17:40:00 Test Item Value Reference Range Interpretation Comments Gluc POC Lifscn (test code = Gluc POC 189 70-99 H Lifscn) [facility] GLU[facility]SE [id number] 17:40:00 Test Item Value Reference Range Interpretation Comments Comment1 (test code = Comment1) Notify RN/ [facility] GLUCOSE [id number] 17:40:00 Test Item Value Reference Range Interpretation Comments Comment2 (test code = Comment2) Sliding Scale [facility] GLUCOSE [id number] 17:40:00 Test Item Value Reference Range Interpretation Comments Gluc POC Lifscn (test code = Gluc POC 189 70-99 H Lifscn) [facility] GLUCOSE [id number] 17:40:00 Test Item Value Reference Range Interpretation Comments Comment1 (test code = Comment1) Notify RN/ [facility] GLUCOSE [id number] 17:40:00 Test Item Value Reference Range Interpretation Comments Comment2 (test code = Comment2) Sliding Scale [facility] GLUCOSE [id number] 17:40:00 Test Item Value Reference Range Interpretation Comments Gluc POC Lifscn (test code = Gluc POC 189 70-99 H Lifscn) [facility] GLUCOSE [id number] 17:40:00 Test Item Value Reference Range Interpretation Comments Comment1 (test code = Comment1) Notify RN/ [facility] GLUCOSE [id number] 17:40:00 Test Item Value Reference Range Interpretation Comments Comment2 (test code = Comment2) Sliding Scale [facility] GLUCOSE [id number] 17:40:00 Test Item Value Reference Range Interpretation Comments Gluc POC Lifscn (test code = Gluc POC 189 70-99 H Lifscn) [facility] GLUCOSE [id number] 17:40:00 Test Item Value Reference Range Interpretation Comments Comment1 (test code = Comment1) [facility] RN/ [facility] [id number] 17:40:00 Test Item Value Reference Range Interpretation Comments Comment2 (test code = Comment2) [facility]iding Scale [facility] [id number] 13:34:00 Test Item Value Reference Range Interpretation Comments Comment2 (test code = Comment2) Sliding Scale [facility] [id number] 13:34:00 Test Item Value Reference Range Interpretation Comments Gluc POC Lifscn (test code = Gluc POC 110 70-99 H Lifscn) [facility] [id number] 13:34:00 Test Item Value Reference Range Interpretation Comments Comment1 (test code = Comment1) Not[facility] RN/ [facility] GLU[facility]SE [id number] 13:34:00 Test Item Value Reference Range Interpretation Comments Comment2 (test code = Comment2) Sliding Scale [facility] GLU[facility]SE [id number] 13:34:00 Test Item Value Reference Range Interpretation Comments Gluc POC Lifscn (test code = Gluc POC 110 70-99 H Lifscn) [facility] [id number] 13:34:00 Test Item Value Reference Range Interpretation Comments Comment1 (test code = Comment1) Notify TABATHA/ [facility] [id number] 13:34:00 Test Item Value Reference Range Interpretation Comments Comment2 (test code = Comment2) Sliding Scale [facility] GLU[facility] [id number] 13:34:00 Test Item Value Reference Range Interpretation Comments Gluc POC Lifscn (test code = Gluc POC 110 70-99 H Lifscn) [facility] [id number] 13:34:00 Test Item Value Reference Range Interpretation Comments Comment1 (test code = Comment1) Notify TABATHA/ [facility] GLU[facility] [id number] 13:34:00 Test Item Value Reference Range Interpretation Comments Comment2 (test code = Comment2) Sliding Scale [facility] [id number] 13:34:00 Test Item Value Reference Range Interpretation Comments Gluc POC Lifscn (test code = Gluc POC 110 70-99 H Lifscn) [facility] GLU[facility]SE [id number] 13:34:00 Test Item Value Reference Range Interpretation Comments Comment1 (test code = Comment1) Notify RN/ [facility] GLUCOSE [id number] 13:34:00 Test Item Value Reference Range Interpretation Comments Comment2 (test code = Comment2) Sliding Scale [facility] GLUCOSE [id number] 13:34:00 Test Item Value Reference Range Interpretation Comments Gluc POC Lifscn (test code = Gluc POC 110 70-99 H Lifscn) [facility] GLUCOSE [id number] 13:34:00 Test Item Value Reference Range Interpretation Comments Comment1 (test code = Comment1) [facility]/ [facility] CenterSddplllVNFKYGOSL5520-72-41 00:00:00 Test Item Value Reference Range Interpretation Comments U Preg (test code = U Negative (11/28/2011 N Preg) 19:00:00) [facility] CenterAvihfalVYJOCACGOE1492-36-26 00:00:00 Test Item Value Reference Range Interpretation Comments Micro? (test code = Performed (11/28/2011 N Micro?) 19:00:00) [facility] CenterCsizvecGVLNWBTCHP0764-82-58 00:00:00 Test Item Value Reference Range Interpretation Comments UA Sq Epi (test code Occasional /LPF N = UA Sq Epi) (11/28/2011 19:00:00) [facility] CenterLecvhulSANBAFBVAL0447-61-01 00:00:00 Test Item Value Reference Range Interpretation Comments UA RBC (test None Seen See_Comment N [Automated mes pastor] code = UA RBC) (11/28/2011 The system [facility] 19:00:00) generated this result transmitted ref erence range: <=2. The reference range was not used to int erpret this result as normal/abnormal . [facility] CenterZntjcvdRVOZVFNEEI3128-19-93 00:00:00 Test Item Value Reference Range Interpretation Comments UA WBC (test code Occasional See_Comment [Automate d message] The = UA WBC) system which ge nerated this result tra nsmitted reference range : <=5. The reference range was not used to interpr et this result as normal/abnormal . [facility] CenterBznksieKSQDROVEFD9020-78-32 00:00:00 Test Item Value Reference Range Interpretation Comments UA Protein (test code Negative mg/dL N = UA Protein) (11/28/2011 19:00:00) [id number] 00:00:00 Test Item Value Reference Range Interpretation Comments UA pH (test code = UA pH) 7.0 1 5.0-8.0 N [facility] CenterZvgckzfXBWEHNZKBA6330-13-69 00:00:00 Test Item Value Reference Range Interpretation Comments UA Spec Grav (test code = UA Spec 1.020 1 N Grav) [facility]GgmtriyXRTPSRGZNN6398-34-77 00:00:00 Test Item Value Reference Range Interpretation Comments UA Turbidity (test code = Clear (11/28/2011 N UA Turbidity) 19:00:00) [facility] CenterOcmpdraXVHHKKOGGT7643-61-73 00:00:00 Test Item Value Reference Range Interpretation Comments UA Color (test code = Yellow *NA*(11/28/2011 UA Color) 19:00:00) [facility] CenterAeehbfqCUPONAHLGI3407-44-05 00:00:00 Test Item Value Reference Range Interpretation Comments UA Urobilinogen (test code = UA 0.2 0.1-1.0 N Urobilinogen) [facility] CenterEmgijobCJONDJYTQV8399-41-88 00:00:00 Test Item Value Reference Range Interpretation Comments UA Blood (test code = Negative (11/28/2011 N UA Blood) 19:00:00) [facility] CenterOwoqvduKZCCJAUYPT1143-33-70 00:00:00 Test Item Value Reference Range Interpretation Comments UA Bili (test code = Negative *NA*(11/28/2011 UA Bili) 19:00:00) [facility] CenterXxtryjiRBQDJASLVQ1191-56-08 00:00:00 Test Item Value Reference Range Interpretation Comments UA Ketones (test code = >=80 mg/dL A UA Ketones) *ABN*(11/28/2011 19:00:00) [facility]EyswkeyXLUUMZCNMB6566-25-92 00:00:00 Test Item Value Reference Range Interpretation Comments UA Glucose (test code = >=1000 mg/dL A UA Glucose) *ABN*(11/28/2011 19:00:00) [facility] CenterRmeabbhFNZDZXUCPT5471-45-70 00:00:00 Test Item Value Reference Range Interpretation Comments UA Nitrite (test code Negative (11/28/2011 N = UA Nitrite) 19:00:00) [facility] CenterLqpfwcgFWYXNVCHIY0749-15-56 00:00:00 Test Item Value Reference Range Interpretation Comments UA Leuk Est (test Negative (11/28/2011 N code = UA Leuk Est) 19:00:00) [facility] CenterGqzkusxJSRFPHZNJ7065-66-82 00:00:00 Test Item Value Reference Range Interpretation Comments U Preg (test code = U Negative (11/28/2011 N Preg) 19:00:00) [facility]JqtcwlxSFTCAUXKHH1862-12-08 00:00:00 Test Item Value Reference Range Interpretation Comments Micro? (test code = Performed (11/28/2011 N Micro?) 19:00:00) [facility] CenterAnqbmgjLQDNPLRBQG9000-36-08 00:00:00 Test Item Value Reference Range Interpretation Comments UA Sq Epi (test code Occasional /LPF N = UA Sq Epi) (11/28/2011 19:00:00) [facility] CenterFbkhpucWAGTMWFZJS5170-18-12 00:00:00 Test Item Value Reference Range Interpretation Comments UA RBC (test None Seen See_Comment N [Automated mes pastor] code = UA RBC) (11/28/2011 The system ich 19:00:00) generated this result transmitted ref erence range: <=2. The reference range was not used to int erpret this result as normal/abnormal . [facility] CenterKrmozvnWIYNVBMBZR4690-56-13 00:00:00 Test Item Value Reference Range Interpretation Comments UA WBC (test code Occasional See_Comment [Automate d message] The = UA WBC) system which ge nerated this result tra nsmitted reference range : <=5. The reference range was not used to interpr et this result as normal/abnormal . [facility] CenterJraocnkZVVJYEYJAE0800-29-76 00:00:00 Test Item Value Reference Range Interpretation Comments UA Protein (test code Negative mg/dL N = UA Protein) (11/28/2011 19:00:00) [facility] CenterAokbnboLLQWRCUPZB3961-57-04 00:00:00 Test Item Value Reference Range Interpretation Comments UA pH (test code = UA pH) 7.0 1 5.0-8.0 N [facility] CenterXvoyxutULXAOGYSYB5355-86-04 00:00:00 Test Item Value Reference Range Interpretation Comments UA Spec Grav (test code = UA Spec 1.020 1 N Grav) [facility] CenterGbltjbfDJHLXZWEQE2322-97-68 00:00:00 Test Item Value Reference Range Interpretation Comments UA Turbidity (test code = Clear (11/28/2011 N UA Turbidity) 19:00:00) [facility]anoXcuvcisQVSQWRZCPO2034-50-51 00:00:00 Test Item Value Reference Range Interpretation Comments UA Color (test code = Yellow *NA*(11/28/2011 UA Color) 19:00:00) [facility]anoCkblzwjOPIWLXRDVU2792-92-87 00:00:00 Test Item Value Reference Range Interpretation Comments UA Urobilinogen (test code = UA 0.2 0.1-1.0 N Urobilinogen) [facility] CenterGmhamsiQGMSILVECG5264-38-57 00:00:00 Test Item Value Reference Range Interpretation Comments UA Blood (test code = Negative (11/28/2011 N UA Blood) 19:00:00) [facility]anoVmznvrmQKIGOUYXUL6302-34-76 00:00:00 Test Item Value Reference Range Interpretation Comments UA Bili (test code = Negative *NA*(11/28/2011 UA Bili) 19:00:00) [facility] CenterStvnkjyZFIQLOHTQS6809-90-80 00:00:00 Test Item Value Reference Range Interpretation Comments UA Ketones (test code = >=80 mg/dL A UA Ketones) *ABN*(11/28/2011 19:00:00) [facility]anoYwnacltUAYEIPAJQJ7702-46-50 00:00:00 Test Item Value Reference Range Interpretation Comments UA Glucose (test code = >=1000 mg/dL A UA Glucose) *ABN*(11/28/2011 19:00:00) [facility] CenterYtsxvzxFDNJUAPURM9087-10-67 00:00:00 Test Item Value Reference Range Interpretation Comments UA Nitrite (test code Negative (11/28/2011 N = UA Nitrite) 19:00:00) [facility] CenterKrrhdbpGVIJQEAFBX3825-83-31 00:00:00 Test Item Value Reference Range Interpretation Comments UA Leuk Est (test Negative (11/28/2011 N code = UA Leuk Est) 19:00:00) [facility] CenterQfqpvptMWGSFLJTR6976-03-63 00:00:00 Test Item Value Reference Range Interpretation Comments U Preg (test code = U Negative (11/28/2011 N Preg) 19:00:00) [facility] CenterEwmrkcrSIHMDGZFWN9109-47-43 00:00:00 Test Item Value Reference Range Interpretation Comments Micro? (test code = Performed (11/28/2011 N Micro?) 19:00:00) [facility]anoOefgmbxUHFEFDRBLV9498-16-28 00:00:00 Test Item Value Reference Range Interpretation Comments UA Sq Epi (test code Occasional /LPF N = UA Sq Epi) (11/28/2011 19:00:00) [facility] CenterFoefwhyLEWQGJTCFD9253-30-94 00:00:00 Test Item Value Reference Range Interpretation Comments UA RBC (test None Seen See_Comment N [Automated mes pastor] code = UA RBC) (11/28/2011 The system wh ich 19:00:00) generated this result transmitted ref erence range: <=2. The reference range was not used to int erpret this result as normal/abnormal . [facility] CenterCwjzwjjLHQCWPQLHS9172-65-93 00:00:00 Test Item Value Reference Range Interpretation Comments UA WBC (test code Occasional See_Comment [Automate d message] The = UA WBC) system which ge nerated this result tra nsmitted reference range : <=5. The reference range was not used to interpr et this result as normal/abnormal . [facility]anoByrfudeCVJTGGQYDS3308-04-72 00:00:00 Test Item Value Reference Range Interpretation Comments UA Protein (test code Negative mg/dL N = UA Protein) (11/28/2011 19:00:00) [facility]anoDpasfsqFADGKSBGUS9368-97-47 00:00:00 Test Item Value Reference Range Interpretation Comments UA pH (test code = UA pH) 7.0 1 5.0-8.0 N [facility]anoSsogqrqVIUXCJURJM1588-84-84 00:00:00 Test Item Value Reference Range Interpretation Comments UA Spec Grav (test code = UA Spec 1.020 1 N Grav) [facility]anoTicwtugRZHXTEJHFO4485-61-52 00:00:00 Test Item Value Reference Range Interpretation Comments UA Turbidity (test code = Clear (11/28/2011 N UA Turbidity) 19:00:00) [facility]anoXaezdztCORGWOOOSX7769-55-80 00:00:00 Test Item Value Reference Range Interpretation Comments UA Color (test code = Yellow *NA*(11/28/2011 UA Color) 19:00:00) [facility]anoSvluyhgEQEHEOAFYP1603-16-57 00:00:00 Test Item Value Reference Range Interpretation Comments UA Urobilinogen (test code = UA 0.2 0.1-1.0 N Urobilinogen) [facility] CenterTpwpkpkSKZFOCEIGL1460-77-68 00:00:00 Test Item Value Reference Range Interpretation Comments UA Blood (test code = Negative (11/28/2011 N UA Blood) 19:00:00) [facility] CenterHhojbtiXCURPQDPLS9137-79-52 00:00:00 Test Item Value Reference Range Interpretation Comments UA Bili (test code = Negative *NA*(11/28/2011 UA Bili) 19:00:00) [facility] CenterFtpdtogIIZKNHHNLR0468-00-92 00:00:00 Test Item Value Reference Range Interpretation Comments UA Ketones (test code = >=80 mg/dL A UA Ketones) *ABN*(11/28/2011 19:00:00) [facility]anoMlinrruATQOQUICTE3883-96-87 00:00:00 Test Item Value Reference Range Interpretation Comments UA Glucose (test code = >=1000 mg/dL A UA Glucose) *ABN*(11/28/2011 19:00:00) [facility] CenterOygdbcnGUQIWLSYAA1062-78-71 00:00:00 Test Item Value Reference Range Interpretation Comments UA Nitrite (test code Negative (11/28/2011 N = UA Nitrite) 19:00:00) [facility] CenterVpmxcbuVVMCPETYMI9373-65-08 00:00:00 Test Item Value Reference Range Interpretation Comments UA Leuk Est (test Negative (11/28/2011 N code = UA Leuk Est) 19:00:00) [facility] CenterKjecgvtEIJRMTQUI8811-89-68 00:00:00 Test Item Value Reference Range Interpretation Comments U Preg (test code = U Negative (11/28/2011 N Preg) 19:00:00) [facility] CenterZqlzdruUWLBCMEBPD4679-17-16 00:00:00 Test Item Value Reference Range Interpretation Comments Micro? (test code = Performed (11/28/2011 N Micro?) 19:00:00) [facility]anoAzzhrjtHCCVEWKZZQ7007-09-56 00:00:00 Test Item Value Reference Range Interpretation Comments UA Sq Epi (test code Occasional /LPF N = UA Sq Epi) (11/28/2011 19:00:00) [facility]anoVwegmekODISECJHFC1809-87-72 00:00:00 Test Item Value Reference Range Interpretation Comments UA RBC (test None Seen See_Comment N [Automated mes pastor] code = UA RBC) (11/28/2011 The system wh ich 19:00:00) generated this result transmitted ref erence range: <=2. The reference range was not used to int erpret this result as normal/abnormal . [facility]anoBgzxyqoMAFOOFJQBU2814-79-67 00:00:00 Test Item Value Reference Range Interpretation Comments UA WBC (test code Occasional See_Comment [Automate d message] The = UA WBC) system which ge nerated this result tra nsmitted reference range : <=5. The reference range was not used to interpr et this result as normal/abnormal . [facility] PlanoYdbqzjcFETGNSDWCK5838-19-47 00:00:00 Test Item Value Reference Range Interpretation Comments UA Protein (test code Negative mg/dL N = UA Protein) (11/28/2011 19:00:00) [facility]anoAceyfpzIGBSAISYFY8578-00-60 00:00:00 Test Item Value Reference Range Interpretation Comments UA pH (test code = UA pH) 7.0 1 5.0-8.0 N [facility]anoMlqoitqWKUDWVWEIM5863-15-70 00:00:00 Test Item Value Reference Range Interpretation Comments UA Spec Grav (test code = UA Spec 1.020 1 N Grav) [facility]anoDfaepfqCAQKPWDCRA7049-49-99 00:00:00 Test Item Value Reference Range Interpretation Comments UA Turbidity (test code = Clear (11/28/2011 N UA Turbidity) 19:00:00) [facility] PlanoGenisjaUAHCMIWXIG9548-54-03 00:00:00 Test Item Value Reference Range Interpretation Comments UA Color (test code = Yellow *NA*(11/28/2011 UA Color) 19:00:00) [facility] CenterTyjtihtIWILYQRTJY5279-76-34 00:00:00 Test Item Value Reference Range Interpretation Comments UA Urobilinogen (test code = UA 0.2 0.1-1.0 N Urobilinogen) [facility] PlanoBwnrejfUNWRJXATUT0123-56-61 00:00:00 Test Item Value Reference Range Interpretation Comments UA Blood (test code = Negative (11/28/2011 N UA Blood) 19:00:00) [facility] CenterGpwpultDWCBJZXTHN3318-95-28 00:00:00 Test Item Value Reference Range Interpretation Comments UA Bili (test code = Negative *NA*(11/28/2011 UA Bili) 19:00:00) [facility] YuvofpdDIIDWEGBFT9850-83-31 00:00:00 Test Item Value Reference Range Interpretation Comments UA Ketones (test code = >=80 mg/dL A UA Ketones) *ABN*(11/28/2011 19:00:00) [facility]YaifgyqIVWPFRHPYL3847-55-32 00:00:00 Test Item Value Reference Range Interpretation Comments UA Glucose (test code = >=1000 mg/dL A UA Glucose) *ABN*(11/28/2011 19:00:00) [facility] CenterTiqeszvMJGMYLCRDS1273-50-28 00:00:00 Test Item Value Reference Range Interpretation Comments UA Nitrite (test code Negative (11/28/2011 N = UA Nitrite) 19:00:00) [facility] CenterPytibmaZPHKGLZIJN6772-89-76 00:00:00 Test Item Value Reference Range Interpretation Comments UA Leuk Est (test Negative (11/28/2011 N code = UA Leuk Est) 19:00:00) [facility] CenterXdhfidnKMIZZPYFE1211-60-70 00:00:00 Test Item Value Reference Range Interpretation Comments U Preg (test code = U Negative (11/28/2011 N Preg) 19:00:00) [facility] CenterLusvftyBPRXZBKXZJ1761-01-06 00:00:00 Test Item Value Reference Range Interpretation Comments Micro? (test code = Performed (11/28/2011 N Micro?) 19:00:00) [facility] CenterUjkxsflHDTVTXPIPT2123-21-12 00:00:00 Test Item Value Reference Range Interpretation Comments UA Sq Epi (test code Occasional /LPF N = UA Sq Epi) (11/28/2011 19:00:00) [facility] CenterUhsywreRZGIEZGVDD5135-02-34 00:00:00 Test Item Value Reference Range Interpretation Comments UA RBC (test None Seen See_Comment N [Automated mes pastor] code = UA RBC) (11/28/2011 The system ich 19:00:00) generated this result transmitted ref erence range: <=2. The reference range was not used to int erpret this result as normal/abnormal . [facility] CenterTtauoshIFRCWESNZB4577-71-13 00:00:00 Test Item Value Reference Range Interpretation Comments UA WBC (test code Occasional See_Comment [Automate d message] The = UA WBC) system which ge nerated this result tra nsmitted reference range : <=5. The reference range was not used to interpr et this result as normal/abnormal . [facility] CenterXxtetudFSJFFZTEOH1169-14-03 00:00:00 Test Item Value Reference Range Interpretation Comments UA Protein (test code Negative mg/dL N = UA Protein) (11/28/2011 19:00:00) [facility]anoOvoosatZYJERBEMQM6234-89-92 00:00:00 Test Item Value Reference Range Interpretation Comments UA pH (test code = UA pH) 7.0 1 5.0-8.0 N [facility]anoUrbeguvAKJDVCZTNB7624-00-11 00:00:00 Test Item Value Reference Range Interpretation Comments UA Spec Grav (test code = UA Spec 1.020 1 N Grav) [facility] PlanoIouyyjkUFAUFUCQHH3076-27-37 00:00:00 Test Item Value Reference Range Interpretation Comments UA Turbidity (test code = Clear (11/28/2011 N UA Turbidity) 19:00:00) [facility] CenterEfoabbxHMIIHHZNLT6666-35-32 00:00:00 Test Item Value Reference Range Interpretation Comments UA Color (test code = Yellow *NA*(11/28/2011 UA Color) 19:00:00) [facility]anoGvcnocjYOFGKFVNQI9580-33-99 00:00:00 Test Item Value Reference Range Interpretation Comments UA Urobilinogen (test code = UA 0.2 0.1-1.0 N Urobilinogen) [facility]anoOcmlwskVFVWWWMGWH1943-92-67 00:00:00 Test Item Value Reference Range Interpretation Comments UA Blood (test code = Negative (11/28/2011 N UA Blood) 19:00:00) [facility] CenterKbnjwhqULYEERDCQJ2978-63-09 00:00:00 Test Item Value Reference Range Interpretation Comments UA Bili (test code = Negative *NA*(11/28/2011 UA Bili) 19:00:00) [facility]anoNmltewpESWTMWOHZM5440-27-92 00:00:00 Test Item Value Reference Range Interpretation Comments UA Ketones (test code = >=80 mg/dL A UA Ketones) *ABN*(11/28/2011 19:00:00) [facility] CenterMmobjqmMTCVSEPVMM5486-42-63 00:00:00 Test Item Value Reference Range Interpretation Comments UA Glucose (test code = >=1000 mg/dL A UA Glucose) *ABN*(11/28/2011 19:00:00) [facility]anoDnfhngoERRJQDNTPG7963-93-60 00:00:00 Test Item Value Reference Range Interpretation Comments UA Nitrite (test code Negative (11/28/2011 N = UA Nitrite) 19:00:00) [facility] CenterKhfzuccWOGGRMOPSL9074-80-74 00:00:00 Test Item Value Reference Range Interpretation Comments UA Leuk Est (test Negative (11/28/2011 N code = UA Leuk Est) 19:00:00) [facility] CenterRbsltopQQOYMPJRH2504-36-69 20:41:00 Test Item Value Reference Range Interpretation Comments pO2 Roberth (test code = pO2 Roberth) 60 20-49 H [facility] CenterXcazwlcMWOCDNQFF1047-32-51 20:41:00 Test Item Value Reference Range Interpretation Comments pCO2 Roberth (test code = pCO2 Roberth) 41 38-52 N [facility] CenterBodeuimNNOKRTQTE6800-98-61 20:41:00 Test Item Value Reference Range Interpretation Comments pH Roberth (test code = pH Roberth) 7.45 7.28-7.42 H [facility] CenterJmxepwtGEVRSWHMA8961-05-55 20:41:00 Test Item Value Reference Range Interpretation Comments Temp Roberth (test code = Temp Roberth) 37.0 [facility] CenterVbpakgaVEYTSBUMO3265-07-09 20:41:00 Test Item Value Reference Range Interpretation Comments O2 Sat Roberth (test code = O2 Sat Roberth) 92.0 40.0-70.0 H [facility] CenterKdoepgkIHOFUFRTW2501-02-45 20:41:00 Test Item Value Reference Range Interpretation Comments BE Roberth (test code = 4 See_Comment H [Automa rohit message] The BE Roberth) system which ge nerated this result transmit rohit reference range : <=2. The reference range was not used to interpr et this result as reji l/abnormal. [facility] CenterSpytqvyDZSDQAPTY8513-96-33 20:41:00 Test Item Value Reference Range Interpretation Comments HCO3 Roberth (test code = HCO3 Roberth) 28.5 22.0-26.0 H [facility] CenterHoootfcSANVPFRGC5083-64-83 20:41:00 Test Item Value Reference Range Interpretation Comments pO2 Roberth (test code = pO2 Roberth) 60 20-49 H [facility] CenterEvjlmsyMZITOTRQY6983-37-78 20:41:00 Test Item Value Reference Range Interpretation Comments pCO2 Roberth (test code = pCO2 Roberth) 41 38-52 N [facility] CenterNcubzhqNVRKCOFKB4134-82-28 20:41:00 Test Item Value Reference Range Interpretation Comments pH Roberth (test code = pH Roberth) 7.45 7.28-7.42 H [facility] CenterZnnistmCXFZVCZWG6196-14-52 20:41:00 Test Item Value Reference Range Interpretation Comments Temp Roberth (test code = Temp Roberth) 37.0 [facility] CenterNibvasqCSRZETTVM6590-02-32 20:41:00 Test Item Value Reference Range Interpretation Comments O2 Sat Roberth (test code = O2 Sat Roberth) 92.0 40.0-70.0 H [facility] CenterDguldvkVEZKPNUIO1217-15-11 20:41:00 Test Item Value Reference Range Interpretation Comments BE Roberth (test code = 4 See_Comment H [Automa rohit message] The BE Roberth) system which ge nerated this result transmit rohit reference range : <=2. The reference range was not used to interpr et this result as reji l/abnormal. [facility] CenterDevztcgOOZTQJHLJ1755-78-82 20:41:00 Test Item Value Reference Range Interpretation Comments HCO3 Roberth (test code = HCO3 Roberth) 28.5 22.0-26.0 H [facility] CenterPhrfqfsKTCDEXWWY2118-49-17 20:41:00 Test Item Value Reference Range Interpretation Comments pO2 Roberth (test code = pO2 Roberth) 60 20-49 H [facility] CenterMlcinhdQDWRCDNWL2128-34-43 20:41:00 Test Item Value Reference Range Interpretation Comments pCO2 Roberth (test code = pCO2 Roberth) 41 38-52 N [facility] CenterLzlnplcLGYPUBAFH6090-01-38 20:41:00 Test Item Value Reference Range Interpretation Comments pH Roberth (test code = pH Roberth) 7.45 7.28-7.42 H [facility] CenterNtcghgoFVEFDQWSR2379-43-65 20:41:00 Test Item Value Reference Range Interpretation Comments Temp Roberth (test code = Temp Roberth) 37.0 [facility] CenterVlqudhsTGDGMFQQI6810-62-46 20:41:00 Test Item Value Reference Range Interpretation Comments O2 Sat Roberth (test code = O2 Sat Roberth) 92.0 40.0-70.0 H [facility] CenterZwhbhkuFBBOTNZOQ0601-27-35 20:41:00 Test Item Value Reference Range Interpretation Comments BE Roberth (test code = 4 See_Comment H [Automa rohit message] The BE Roberth) system which ge nerated this result transmit rohit reference range : <=2. The reference range was not used to interpr et this result as reji l/abnormal. [facility] CenterZcxzrzhRVSJQZSAA2477-34-72 20:41:00 Test Item Value Reference Range Interpretation Comments HCO3 Roberth (test code = HCO3 Roberth) 28.5 22.0-26.0 H [facility] CenterMgzgfvdKYKBQVHPG1388-14-83 20:41:00 Test Item Value Reference Range Interpretation Comments pO2 Roberth (test code = pO2 Roberth) 60 20-49 H [facility] CenterMwytdfbIYQSWGBYV1753-90-97 20:41:00 Test Item Value Reference Range Interpretation Comments pCO2 Roberth (test code = pCO2 Roberth) 41 38-52 N [facility] CenterHfujhtvLKOTVSFYJ7519-98-05 20:41:00 Test Item Value Reference Range Interpretation Comments pH Roberth (test code = pH Roberth) 7.45 7.28-7.42 H [facility] CenterWqrefyvQUHQLALDM8159-61-15 20:41:00 Test Item Value Reference Range Interpretation Comments Temp Roberth (test code = Temp Roberth) 37.0 [facility] CenterPqfytdeZJBTOPJOZ2597-38-08 20:41:00 Test Item Value Reference Range Interpretation Comments O2 Sat Roberth (test code = O2 Sat Roberth) 92.0 40.0-70.0 H [facility] CenterZrnndalPSGOVCCPK6475-52-71 20:41:00 Test Item Value Reference Range Interpretation Comments BE Roberth (test code = 4 See_Comment H [Automa rohit message] The BE Roberth) system which ge nerated this result transmit rohit reference range : <=2. The reference range was not used to interpr et this result as reji l/abnormal. [facility] CenterLtszictMEUSOYHMV8875-20-53 20:41:00 Test Item Value Reference Range Interpretation Comments HCO3 Roberth (test code = HCO3 Roberth) 28.5 22.0-26.0 H [facility] CenterHprdqaoYSUNUVCUU2015-59-82 20:41:00 Test Item Value Reference Range Interpretation Comments pO2 Roberth (test code = pO2 Roberth) 60 20-49 H [facility] CenterRiyqknpSCBGEJPRN3501-84-91 20:41:00 Test Item Value Reference Range Interpretation Comments pCO2 Roberth (test code = pCO2 Roberth) 41 38-52 N [facility] CenterCqynzupKZHRNOPYC9687-07-82 20:41:00 Test Item Value Reference Range Interpretation Comments pH Roberth (test code = pH Roberth) 7.45 7.28-7.42 H [facility] CenterKttwnmlAOTXGTLAP5728-93-16 20:41:00 Test Item Value Reference Range Interpretation Comments Temp Roberth (test code = Temp Roberth) 37.0 [facility] CenterHbzfvmlNBIJUACCY0009-78-74 20:41:00 Test Item Value Reference Range Interpretation Comments O2 Sat Roberth (test code = O2 Sat Roberth) 92.0 40.0-70.0 H [facility] CenterZrqdojtDTEHECKAH4075-68-26 20:41:00 Test Item Value Reference Range Interpretation Comments BE Roberth (test code = 4 See_Comment H [Automa rohit message] The BE Roberth) system which ge nerated this result transmit rohit reference range : <=2. The reference range was not used to interpr et this result as reji l/abnormal. [facility] CenterKbkrhbtNQZDHOPMZ5912-20-27 20:41:00 Test Item Value Reference Range Interpretation Comments HCO3 Roberth (test code = HCO3 Roberth) 28.5 22.0-26.0 [facility] CenterNmrcxsfZZQBRMWQX6122-40-98 20:00:00 Test Item Value Reference Range Interpretation Comments Lactic Acid Lvl (test code = Lactic 1.6 0.5-2.2 N Acid Lvl) [facility] CenterMhefgqzRLIWRDTEZ1920-86-63 20:00:00 Test Item Value Reference Range Interpretation Comments Lipase Lvl (test code = Lipase Lvl) 125 73-393 N [facility] CenterPrgcqvgSYINXDIKA7796-96-16 20:00:00 Test Item Value Reference Range Interpretation Comments Albumin Lvl (test code = Albumin Lvl) 4.2 3.5-5.0 N [facility] CenterTddezjuNOHTLRDKO0977-23-71 20:00:00 Test Item Value Reference Range Interpretation Comments CO2 (test code = CO2) 23 24-32 L [facility] CenterNiwsgvhYOPAWAPWE5568-19-90 20:00:00 Test Item Value Reference Range Interpretation Comments Chloride Lvl (test code = Chloride Lvl) 98 95-109 N [facility] CenterEeceieuNHRVCWORW5130-40-74 20:00:00 Test Item Value Reference Range Interpretation Comments Potassium Lvl (test code = Potassium 3.8 3.5-5.1 N Lvl) [facility] CenterBoyxnwoERCELJPQL9929-32-07 20:00:00 Test Item Value Reference Range Interpretation Comments Sodium Lvl (test code = Sodium Lvl) 138 135-145 N [facility] CenterHedqwcxGMZCSLOVC7931-34-70 20:00:00 Test Item Value Reference Range Interpretation Comments Creatinine Lvl (test code = Creatinine 0.7 0.5-1.4 N Lvl) [facility] CenterGgwcvfcGYFUHIQJM4866-72-50 20:00:00 Test Item Value Reference Range Interpretation Comments BUN (test code = BUN) 9 7-22 N [facility] CenterLminnqyHTSWPJGQT6134-39-53 20:00:00 Test Item Value Reference Range Interpretation Comments Glucose Lvl (test code = Glucose Lvl) 269 70-99 H [facility] CenterFgzwuubLWAXVNSUC2199-00-96 20:00:00 Test Item Value Reference Range Interpretation Comments B/C Ratio (test code = B/C Ratio) 13 6-25 N [facility] CenterRmkthceRWQAYZEHD6337-11-25 20:00:00 Test Item Value Reference Range Interpretation Comments AGAP (test code = AGAP) 20.8 10.0-20.0 H [facility] CenterQfowxpbDLZYTLQLA0708-30-69 20:00:00 Test Item Value Reference Range Interpretation Comments Calcium Lvl (test code = Calcium Lvl) 9.3 8.5-10.5 N [facility] CenterRivtroiSDKRDFXLX1337-82-53 20:00:00 Test Item Value Reference Range Interpretation Comments Total Protein (test code = Total 6.7 6.4-8.4 N Protein) [facility] CenterCmscjxjYFKITTXYW7127-85-25 20:00:00 Test Item Value Reference Range Interpretation Comments A/G Ratio (test code = A/G Ratio) 1.7 0.7-1.6 H [facility] CenterStmxxpmPIACTTXKP6020-66-87 20:00:00 Test Item Value Reference Range Interpretation Comments Globulin (test code = Globulin) 2.5 2.0-4.0 N [facility] CenterPwwrpdbVJLYQHVCY3195-13-58 20:00:00 Test Item Value Reference Range Interpretation Comments AST (test code = AST) 18 See_Comment N [Auto mated message] The system which ge nerated this result transmit rohit reference range : <=37. The reference range was not used to interpr et this result as reji l/abnormal. [facility] CenterTwqvevbCBFBBBGOT0585-94-90 20:00:00 Test Item Value Reference Range Interpretation Comments Alk Phos (test code = Alk Phos) 62 39-136 N [facility] CenterZyfovkoWYTYBBGKL1226-34-78 20:00:00 Test Item Value Reference Range Interpretation Comments ALT (test code = ALT) 32 See_Comment N [Auto mated message] The system which ge nerated this result transmit rohit reference range : <=65. The reference range was not used to interpr et this result as reji l/abnormal. [facility] CenterCvjigwtTSTZLKRQV7890-05-27 20:00:00 Test Item Value Reference Range Interpretation Comments Bili Total (test code = Bili Total) 0.7 0.2-1.3 N [facility]GmxrinhBFZKXSRBGX8965-95-86 20:00:00 Test Item Value Reference Range Interpretation Comments Anisocyte (test code = 1+ *ABN*(11/28/2011 A Anisocyte) 15:00:00) [facility] HospitalRdrizewVITBFPJQUQ8989-79-27 20:00:00 Test Item Value Reference Range Interpretation Comments Monocytes # (test code 0.1 See_Comment N [Aut omated message] The = Monocytes #) system which generated this result tra nsmitted reference range : <=0.8. The reference r leo was not used to int erpret this result as normal/abnormal . [facility] HospitalVmoensdMJZSKDSMRX8519-89-51 20:00:00 Test Item Value Reference Range Interpretation Comments Eosinophils # (test code 0.0 See_Comment N [A utomated message] The = Eosinophils #) system whic h generated this result tra nsmitted reference range : <=0.5. The reference r leo was not used to int erpret this result as normal/abnormal . [facility] HospitalMdvgudyCKBYYTOSHA1572-10-42 20:00:00 Test Item Value Reference Range Interpretation Comments Basophils # (test code 0.0 See_Comment N [Aut omated message] The = Basophils #) system which generated this result tra nsmitted reference range : <=0.2. The reference r leo was not used to int erpret this result as normal/abnormal . [facility] HospitalHppurvcLXTCGWESBE3167-54-92 20:00:00 Test Item Value Reference Range Interpretation Comments Neut Vac (test code = Slight *ABN*(11/28/2011 A Neut Vac) 15:00:00) [facility] HospitalLdzedzwYEQFAZDVTX7096-16-67 20:00:00 Test Item Value Reference Range Interpretation Comments Large Plt (test code = Slight *ABN*(11/28/2011 A Large Plt) 15:00:00) [facility] HospitalQpeohrrDHWJHORBVT6275-52-69 20:00:00 Test Item Value Reference Range Interpretation Comments Segs-Bands # (test code = Segs-Bands #) 5.7 1.5-8.1 N [facility] HospitalBlmbkkkXFHWOADMYB6752-13-14 20:00:00 Test Item Value Reference Range Interpretation Comments Lymphocytes # (test code = Lymphocytes 0.8 1.0-5.5 L #) [facility] HospitalGposrsaAWAILYZNSA7630-86-67 20:00:00 Test Item Value Reference Range Interpretation Comments Eosinophils (test code = 0.2 See_Comment N [A utomated message] The Eosinophils) system which ge nerated this result tra nsmitted reference range : <=4.0. The reference r leo was not used to int erpret this result as normal/abnormal . [facility] HospitalWrjspuzIAMKIJEMXJ9855-75-77 20:00:00 Test Item Value Reference Range Interpretation Comments Basophils (test code = 0.0 See_Comment N [Aut omated message] The Basophils) system which ge nerated this result tra nsmitted reference range : <=1.0. The reference r leo was not used to int erpret this result as normal/abnormal . [facility] HospitalFahfoxvCYIINLYUXK8785-00-56 20:00:00 Test Item Value Reference Range Interpretation Comments Monocytes (test code = Monocytes) 1.9 2.0-12.0 L [facility] HospitalIirijhxYCRUNGOEPU6008-69-19 20:00:00 Test Item Value Reference Range Interpretation Comments Segs (test code = Segs) 86.2 45.0-75.0 H [facility] HospitalEnfrfxsKOBIAVHUNL9622-64-21 20:00:00 Test Item Value Reference Range Interpretation Comments Lymphocytes (test code = Lymphocytes) 11.7 20.0-40.0 L [facility] HospitalSzpwvvuJKPQVGSJMI1695-93-56 20:00:00 Test Item Value Reference Range Interpretation Comments MPV (test code = MPV) 10.8 7.4-10.4 H [facility] HospitalTrvvsqeLKGATCKNXM6204-12-26 20:00:00 Test Item Value Reference Range Interpretation Comments Platelet (test code = Platelet) 161 133-450 N [facility] HospitalHolzbbdEWUFPEZLUN8366-92-96 20:00:00 Test Item Value Reference Range Interpretation Comments MCHC (test code = MCHC) 35.6 32.0-36.0 N [facility] HospitalLrwuhkxBNFPHPICXM3463-45-07 20:00:00 Test Item Value Reference Range Interpretation Comments RDW (test code = RDW) 12.4 11.5-14.5 N [facility] HospitalQrksvkcVQWBJITMSM6900-26-19 20:00:00 Test Item Value Reference Range Interpretation Comments MCH (test code = MCH) 30.7 pg 27.0-31.0 N [facility] HospitalMtpgjjwWGQZPUIGWW9744-69-09 20:00:00 Test Item Value Reference Range Interpretation Comments MCV (test code = MCV) 86.1 81.0-99.0 N [facility] HospitalVtobfskRRAVMRMEUW4889-58-55 20:00:00 Test Item Value Reference Range Interpretation Comments Hct (test code = Hct) 33.6 36.0-48.0 L [facility] HospitalIeeoswqSIIFBTIVTR1977-13-11 20:00:00 Test Item Value Reference Range Interpretation Comments Hgb (test code = Hgb) 12.0 12.0-16.0 N [facility] HospitalKhbrcehUENDXVLWWQ6376-70-10 20:00:00 Test Item Value Reference Range Interpretation Comments RBC (test code = RBC) 3.90 4.20-5.40 L [facility] HospitalIzfqsroKFRENIUTZS0847-38-19 20:00:00 Test Item Value Reference Range Interpretation Comments WBC (test code = WBC) 6.6 3.7-10.4 N [facility] CenterItqoeoaHPYKBHKNQ8361-31-73 20:00:00 Test Item Value Reference Range Interpretation Comments Lactic Acid Lvl (test code = Lactic 1.6 0.5-2.2 N Acid Lvl) [facility] CenterPianwzeOZACVIVDB9458-40-45 20:00:00 Test Item Value Reference Range Interpretation Comments Lipase Lvl (test code = Lipase Lvl) 125 73-393 N [facility] CenterNvvzsjzMDSFDKYFR7312-97-71 20:00:00 Test Item Value Reference Range Interpretation Comments Albumin Lvl (test code = Albumin Lvl) 4.2 3.5-5.0 N [facility] CenterFierwcoRAUATUREF0688-84-98 20:00:00 Test Item Value Reference Range Interpretation Comments CO2 (test code = CO2) 23 24-32 L [facility] CenterBevgfvuWFCOHCQWI9114-77-73 20:00:00 Test Item Value Reference Range Interpretation Comments Chloride Lvl (test code = Chloride Lvl) 98 95-109 N [facility] CenterOjxyivaZCXEBZQFM1219-90-89 20:00:00 Test Item Value Reference Range Interpretation Comments Potassium Lvl (test code = Potassium 3.8 3.5-5.1 N Lvl) [facility] CenterJjwwaybPSLQEXWGM2133-56-24 20:00:00 Test Item Value Reference Range Interpretation Comments Sodium Lvl (test code = Sodium Lvl) 138 135-145 N [facility] CenterNyagykhOJVNGBEVW5725-27-08 20:00:00 Test Item Value Reference Range Interpretation Comments Creatinine Lvl (test code = Creatinine 0.7 0.5-1.4 N Lvl) [facility] CenterIbpevlhMEETDTSDI8515-87-11 20:00:00 Test Item Value Reference Range Interpretation Comments BUN (test code = BUN) 9 7-22 N [facility] CenterLcjcxsuEGDMQOSKD4691-93-09 20:00:00 Test Item Value Reference Range Interpretation Comments Glucose Lvl (test code = Glucose Lvl) 269 70-99 H [facility] CenterRknjnjrDQARYDOCB2422-94-66 20:00:00 Test Item Value Reference Range Interpretation Comments B/C Ratio (test code = B/C Ratio) 13 6-25 N [facility] CenterBetefauLGKGLOUKE7752-82-00 20:00:00 Test Item Value Reference Range Interpretation Comments AGAP (test code = AGAP) 20.8 10.0-20.0 H [facility] CenterJbzdcekQOZIMLRJQ2184-68-24 20:00:00 Test Item Value Reference Range Interpretation Comments Calcium Lvl (test code = Calcium Lvl) 9.3 8.5-10.5 N [facility] CenterDmospwgCWVIPNCSS5409-53-90 20:00:00 Test Item Value Reference Range Interpretation Comments Total Protein (test code = Total 6.7 6.4-8.4 N Protein) [facility] CenterLaqkveiSMHRCCMYI1248-05-81 20:00:00 Test Item Value Reference Range Interpretation Comments A/G Ratio (test code = A/G Ratio) 1.7 0.7-1.6 H [facility] CenterKrnpaujSTJQEYRKW0429-87-94 20:00:00 Test Item Value Reference Range Interpretation Comments Globulin (test code = Globulin) 2.5 2.0-4.0 N [facility] CenterWynwyijQCGXNOMDZ3734-17-76 20:00:00 Test Item Value Reference Range Interpretation Comments AST (test code = AST) 18 See_Comment N [Auto mated message] The system which ge nerated this result transmit rohit reference range : <=37. The reference range was not used to interpr et this result as reji l/abnormal. [facility] CenterQtuadwiRYIOAIFZX2797-52-60 20:00:00 Test Item Value Reference Range Interpretation Comments Alk Phos (test code = Alk Phos) 62 39-136 N [facility] CenterJphkbmhQAMOGJOSS3418-67-91 20:00:00 Test Item Value Reference Range Interpretation Comments ALT (test code = ALT) 32 See_Comment N [Auto mated message] The system which ge nerated this result transmit rohit reference range : <=65. The reference range was not used to interpr et this result as reji l/abnormal. [facility] CenterZwuehyeKSRRSLOFH5425-03-06 20:00:00 Test Item Value Reference Range Interpretation Comments Bili Total (test code = Bili Total) 0.7 0.2-1.3 N [facility] HospitalRpnqykjXXPZRYIEQV4343-51-49 20:00:00 Test Item Value Reference Range Interpretation Comments Anisocyte (test code = 1+ *ABN*(11/28/2011 A Anisocyte) 15:00:00) [facility] HospitalXoqaacuUTCTOLVNGW8745-34-44 20:00:00 Test Item Value Reference Range Interpretation Comments Monocytes # (test code 0.1 See_Comment N [Aut omated message] The = Monocytes #) system which generated this result tra nsmitted reference range : <=0.8. The reference r leo was not used to int erpret this result as normal/abnormal . [facility] HospitalBisxhujIAUOJAYAKV6333-97-22 20:00:00 Test Item Value Reference Range Interpretation Comments Eosinophils # (test code 0.0 See_Comment N [A utomated message] The = Eosinophils #) system whic h generated this result tra nsmitted reference range : <=0.5. The reference r leo was not used to int erpret this result as normal/abnormal . [facility] HospitalZuxunhuXPKHQCVAEH4685-90-20 20:00:00 Test Item Value Reference Range Interpretation Comments Basophils # (test code 0.0 See_Comment N [Aut omated message] The = Basophils #) system which generated this result tra nsmitted reference range : <=0.2. The reference r leo was not used to int erpret this result as normal/abnormal . [facility] HospitalHisrtjuEXQINDZRYD0584-56-85 20:00:00 Test Item Value Reference Range Interpretation Comments Neut Vac (test code = Slight *ABN*(11/28/2011 A Neut Vac) 15:00:00) [facility] HospitalWdcvonsGYRIRBVKYU8437-44-87 20:00:00 Test Item Value Reference Range Interpretation Comments Large Plt (test code = Slight *ABN*(11/28/2011 A Large Plt) 15:00:00) [facility] HospitalGrsymthTPPODCITXF0445-74-01 20:00:00 Test Item Value Reference Range Interpretation Comments Segs-Bands # (test code = Segs-Bands #) 5.7 1.5-8.1 N [facility] HospitalJmhaggaRSEKQTLGOY5721-74-91 20:00:00 Test Item Value Reference Range Interpretation Comments Lymphocytes # (test code = Lymphocytes 0.8 1.0-5.5 L #) [facility] HospitalGzwhajuEENENIAPCM6651-08-84 20:00:00 Test Item Value Reference Range Interpretation Comments Eosinophils (test code = 0.2 See_Comment N [A utomated message] The Eosinophils) system which ge nerated this result tra nsmitted reference range : <=4.0. The reference r leo was not used to int erpret this result as normal/abnormal . [facility] HospitalLabhdykAGYONZGKMI9677-12-43 20:00:00 Test Item Value Reference Range Interpretation Comments Basophils (test code = 0.0 See_Comment N [Aut omated message] The Basophils) system which ge nerated this result tra nsmitted reference range : <=1.0. The reference r leo was not used to int erpret this result as normal/abnormal . [facility] HospitalBoxhkszWGZOAJFKJW3640-38-06 20:00:00 Test Item Value Reference Range Interpretation Comments Monocytes (test code = Monocytes) 1.9 2.0-12.0 L [facility] HospitalFlwisscUTVGKINBOM0624-12-41 20:00:00 Test Item Value Reference Range Interpretation Comments Segs (test code = Segs) 86.2 45.0-75.0 H [facility] HospitalXesgusmYCPPCPPBYG4997-41-33 20:00:00 Test Item Value Reference Range Interpretation Comments Lymphocytes (test code = Lymphocytes) 11.7 20.0-40.0 L [facility] HospitalCgyorsgVVTCDERNXI7301-17-81 20:00:00 Test Item Value Reference Range Interpretation Comments MPV (test code = MPV) 10.8 7.4-10.4 H [facility] HospitalKohqaztHZBTKTBKPS2047-50-96 20:00:00 Test Item Value Reference Range Interpretation Comments Platelet (test code = Platelet) 161 133-450 N [facility] HospitalXoohxcqKBLCWODFYJ5762-94-69 20:00:00 Test Item Value Reference Range Interpretation Comments MCHC (test code = MCHC) 35.6 32.0-36.0 N [facility] HospitalHhqpqgzSSSCFDFAES5240-78-62 20:00:00 Test Item Value Reference Range Interpretation Comments RDW (test code = RDW) 12.4 11.5-14.5 N [facility] HospitalTxlbcnkREIMZHZBOB1381-43-53 20:00:00 Test Item Value Reference Range Interpretation Comments MCH (test code = MCH) 30.7 pg 27.0-31.0 N [facility] HospitalDnijuhqYRFDRYYYYA9868-61-16 20:00:00 Test Item Value Reference Range Interpretation Comments MCV (test code = MCV) 86.1 81.0-99.0 N [facility] HospitalQueacnvONLTPQRBIA3857-26-95 20:00:00 Test Item Value Reference Range Interpretation Comments Hct (test code = Hct) 33.6 36.0-48.0 L [facility] HospitalZnzuswpGHXQDVHPDE7332-49-03 20:00:00 Test Item Value Reference Range Interpretation Comments Hgb (test code = Hgb) 12.0 12.0-16.0 N [facility] HospitalFdflbztEPRTKYKYAA2801-63-94 20:00:00 Test Item Value Reference Range Interpretation Comments RBC (test code = RBC) 3.90 4.20-5.40 L [facility] HospitalVlgvqwyZSEHABXUOJ9045-62-55 20:00:00 Test Item Value Reference Range Interpretation Comments WBC (test code = WBC) 6.6 3.7-10.4 N [facility] CenterIhcmdanQHWVXZSYK7425-01-26 20:00:00 Test Item Value Reference Range Interpretation Comments Lactic Acid Lvl (test code = Lactic 1.6 0.5-2.2 N Acid Lvl) [facility] CenterFoqkuhdAJABFLETV0386-72-45 20:00:00 Test Item Value Reference Range Interpretation Comments Lipase Lvl (test code = Lipase Lvl) 125 73-393 N [facility] CenterTkfgurqKFPJPRBUG9602-84-98 20:00:00 Test Item Value Reference Range Interpretation Comments Albumin Lvl (test code = Albumin Lvl) 4.2 3.5-5.0 N [facility] CenterXarmapvBGSZVCPVE8430-24-69 20:00:00 Test Item Value Reference Range Interpretation Comments CO2 (test code = CO2) 23 24-32 L [facility] CenterJcjmooyNRONQUWGP2807-08-56 20:00:00 Test Item Value Reference Range Interpretation Comments Chloride Lvl (test code = Chloride Lvl) 98 95-109 N [facility] CenterCaidovsKVUYZORRO1968-35-65 20:00:00 Test Item Value Reference Range Interpretation Comments Potassium Lvl (test code = Potassium 3.8 3.5-5.1 N Lvl) [facility] CenterAsbwgaxPMJMKNUJD9939-04-73 20:00:00 Test Item Value Reference Range Interpretation Comments Sodium Lvl (test code = Sodium Lvl) 138 135-145 N [facility] CenterJkyoipyJRAYHKPXA9473-70-94 20:00:00 Test Item Value Reference Range Interpretation Comments Creatinine Lvl (test code = Creatinine 0.7 0.5-1.4 N Lvl) [facility] CenterHtzihjbKEWOMXEVR2919-11-09 20:00:00 Test Item Value Reference Range Interpretation Comments BUN (test code = BUN) 9 7-22 N [facility] CenterSuphxfpFTFXNFNOH0357-32-45 20:00:00 Test Item Value Reference Range Interpretation Comments Glucose Lvl (test code = Glucose Lvl) 269 70-99 H [facility] CenterBmnhtknVVAYGXKFK5520-39-09 20:00:00 Test Item Value Reference Range Interpretation Comments B/C Ratio (test code = B/C Ratio) 13 6-25 N [facility] CenterVqjexdsYDAPUZDAE2835-24-67 20:00:00 Test Item Value Reference Range Interpretation Comments AGAP (test code = AGAP) 20.8 10.0-20.0 H [facility] CenterWmygyirLUOITWUIO3687-19-01 20:00:00 Test Item Value Reference Range Interpretation Comments Calcium Lvl (test code = Calcium Lvl) 9.3 8.5-10.5 N [facility] CenterHekjecsHNADAKOJL7758-05-02 20:00:00 Test Item Value Reference Range Interpretation Comments Total Protein (test code = Total 6.7 6.4-8.4 N Protein) [facility] CenterMwvpmznNALQHSFHN6546-67-33 20:00:00 Test Item Value Reference Range Interpretation Comments A/G Ratio (test code = A/G Ratio) 1.7 0.7-1.6 H [facility] CenterKpnrvayUHXVECBZE5981-75-30 20:00:00 Test Item Value Reference Range Interpretation Comments Globulin (test code = Globulin) 2.5 2.0-4.0 N [facility] CenterAijbnooIAHMNIRIZ7432-51-90 20:00:00 Test Item Value Reference Range Interpretation Comments AST (test code = AST) 18 See_Comment N [Auto mated message] The system which ge nerated this result transmit rohit reference range : <=37. The reference range was not used to interpr et this result as reji l/abnormal. [facility] CenterQruucttGHIOJXCLG6003-52-20 20:00:00 Test Item Value Reference Range Interpretation Comments Alk Phos (test code = Alk Phos) 62 39-136 N [facility] CenterGkhgutpDNUDHSPNV7775-71-10 20:00:00 Test Item Value Reference Range Interpretation Comments ALT (test code = ALT) 32 See_Comment N [Auto mated message] The system which ge nerated this result transmit rohit reference range : <=65. The reference range was not used to interpr et this result as reji l/abnormal. [facility] CenterAbymntrKQKFZOYSV3702-76-09 20:00:00 Test Item Value Reference Range Interpretation Comments Bili Total (test code = Bili Total) 0.7 0.2-1.3 N [facility] HospitalQtyonbhXTEENHURCW5083-07-58 20:00:00 Test Item Value Reference Range Interpretation Comments Anisocyte (test code = 1+ *ABN*(11/28/2011 A Anisocyte) 15:00:00) [facility] HospitalHwxryzrSUKLXMIEVO5460-79-74 20:00:00 Test Item Value Reference Range Interpretation Comments Monocytes # (test code 0.1 See_Comment N [Aut omated message] The = Monocytes #) system which generated this result tra nsmitted reference range : <=0.8. The reference r leo was not used to int erpret this result as normal/abnormal . [facility] HospitalEjkktpiBBKZMGRWOO3700-54-21 20:00:00 Test Item Value Reference Range Interpretation Comments Eosinophils # (test code 0.0 See_Comment N [A utomated message] The = Eosinophils #) system whic h generated this result tra nsmitted reference range : <=0.5. The reference r leo was not used to int erpret this result as normal/abnormal . [facility] HospitalOoaavblRDYLUWXZPX8291-32-56 20:00:00 Test Item Value Reference Range Interpretation Comments Basophils # (test code 0.0 See_Comment N [Aut omated message] The = Basophils #) system which generated this result tra nsmitted reference range : <=0.2. The reference r leo was not used to int erpret this result as normal/abnormal . [facility] HospitalOxecdlsDBMXUNWWFL1748-70-16 20:00:00 Test Item Value Reference Range Interpretation Comments Neut Vac (test code = Slight *ABN*(11/28/2011 A Neut Vac) 15:00:00) [facility] HospitalQtluhbqIDFGSXURFT2609-02-21 20:00:00 Test Item Value Reference Range Interpretation Comments Large Plt (test code = Slight *ABN*(11/28/2011 A Large Plt) 15:00:00) [facility] HospitalNezmlxeYKTKXGVRMA6593-11-39 20:00:00 Test Item Value Reference Range Interpretation Comments Segs-Bands # (test code = Segs-Bands #) 5.7 1.5-8.1 N [facility] HospitalDuxcxilVFGQSOIOSY6777-77-64 20:00:00 Test Item Value Reference Range Interpretation Comments Lymphocytes # (test code = Lymphocytes 0.8 1.0-5.5 L #) [facility] HospitalSwobfdcIFFXSJJRRP0648-55-81 20:00:00 Test Item Value Reference Range Interpretation Comments Eosinophils (test code = 0.2 See_Comment N [A utomated message] The Eosinophils) system which ge nerated this result tra nsmitted reference range : <=4.0. The reference r leo was not used to int erpret this result as normal/abnormal . [facility] HospitalFuxqevhIEJACBKNED0268-09-63 20:00:00 Test Item Value Reference Range Interpretation Comments Basophils (test code = 0.0 See_Comment N [Aut omated message] The Basophils) system which ge nerated this result tra nsmitted reference range : <=1.0. The reference r leo was not used to int erpret this result as normal/abnormal . [facility] HospitalEebtcpmOQESCFAOBY0037-05-99 20:00:00 Test Item Value Reference Range Interpretation Comments Monocytes (test code = Monocytes) 1.9 2.0-12.0 L [facility] HospitalInetohcFIIXUVZPVS3248-00-96 20:00:00 Test Item Value Reference Range Interpretation Comments Segs (test code = Segs) 86.2 45.0-75.0 H [facility] HospitalGmfpoooFLMDGTCPVP5581-00-17 20:00:00 Test Item Value Reference Range Interpretation Comments Lymphocytes (test code = Lymphocytes) 11.7 20.0-40.0 L [facility]HpnpwqpAOFRUSBFXS2714-54-88 20:00:00 Test Item Value Reference Range Interpretation Comments MPV (test code = MPV) 10.8 7.4-10.4 H [facility] HospitalAyzoenxKYERFQKLVU9854-87-40 20:00:00 Test Item Value Reference Range Interpretation Comments Platelet (test code = Platelet) 161 133-450 N [facility] HospitalBnbsdlfMCHBDHINLN8165-20-96 20:00:00 Test Item Value Reference Range Interpretation Comments MCHC (test code = MCHC) 35.6 32.0-36.0 N [facility] HospitalWitfcabKMKVEWBRZU6516-11-43 20:00:00 Test Item Value Reference Range Interpretation Comments RDW (test code = RDW) 12.4 11.5-14.5 N [facility] HospitalRwrpsepTKAHOUIGBD7938-14-76 20:00:00 Test Item Value Reference Range Interpretation Comments MCH (test code = MCH) 30.7 pg 27.0-31.0 N [facility] HospitalEgzbdftQXYDIZQVDD2238-51-68 20:00:00 Test Item Value Reference Range Interpretation Comments MCV (test code = MCV) 86.1 81.0-99.0 N [facility] HospitalMegxwanTHJUIZBWSW6308-45-98 20:00:00 Test Item Value Reference Range Interpretation Comments Hct (test code = Hct) 33.6 36.0-48.0 L [facility] HospitalPjdnleuQOUQODOJVI0912-61-59 20:00:00 Test Item Value Reference Range Interpretation Comments Hgb (test code = Hgb) 12.0 12.0-16.0 N [facility] HospitalFewuxyjBOHHZPLYZI4839-51-98 20:00:00 Test Item Value Reference Range Interpretation Comments RBC (test code = RBC) 3.90 4.20-5.40 L [facility]FuegbpsAYRGPEHWDC2523-85-71 20:00:00 Test Item Value Reference Range Interpretation Comments WBC (test code = WBC) 6.6 3.7-10.4 N [facility] CenterBtyszufMCQVHMNPH5137-48-47 20:00:00 Test Item Value Reference Range Interpretation Comments Lactic Acid Lvl (test code = Lactic 1.6 0.5-2.2 N Acid Lvl) [facility] CenterVwarwvfCBOCAGDBI9741-25-96 20:00:00 Test Item Value Reference Range Interpretation Comments Lipase Lvl (test code = Lipase Lvl) 125 73-393 N [facility] CenterYanbulkTPLOLRVPQ0020-88-32 20:00:00 Test Item Value Reference Range Interpretation Comments Albumin Lvl (test code = Albumin Lvl) 4.2 3.5-5.0 N [facility] CenterCqnrzrhABGKFEXVY2221-49-95 20:00:00 Test Item Value Reference Range Interpretation Comments CO2 (test code = CO2) 23 24-32 L [facility] CenterMsrsyndWRBYFNVYJ2628-43-08 20:00:00 Test Item Value Reference Range Interpretation Comments Chloride Lvl (test code = Chloride Lvl) 98 95-109 N [facility] CenterXszjyknRUHEARJBU9798-06-24 20:00:00 Test Item Value Reference Range Interpretation Comments Potassium Lvl (test code = Potassium 3.8 3.5-5.1 N Lvl) [facility] CenterRygpbvlJOSMFUBPX4682-55-16 20:00:00 Test Item Value Reference Range Interpretation Comments Sodium Lvl (test code = Sodium Lvl) 138 135-145 N [facility] CenterZdgtmdnWYCKSCDDA0959-91-90 20:00:00 Test Item Value Reference Range Interpretation Comments Creatinine Lvl (test code = Creatinine 0.7 0.5-1.4 N Lvl) [facility] CenterUvcqewbHLRWLBQJU4091-09-18 20:00:00 Test Item Value Reference Range Interpretation Comments BUN (test code = BUN) 9 7-22 N [facility] CenterMfrzyurSIGOSRCRA0008-69-35 20:00:00 Test Item Value Reference Range Interpretation Comments Glucose Lvl (test code = Glucose Lvl) 269 70-99 H [facility] CenterYkhotopYMGITFBJN0024-86-26 20:00:00 Test Item Value Reference Range Interpretation Comments B/C Ratio (test code = B/C Ratio) 13 6-25 N [facility] CenterEfjnsxtGYWIRAZSM0222-27-62 20:00:00 Test Item Value Reference Range Interpretation Comments AGAP (test code = AGAP) 20.8 10.0-20.0 H [facility] CenterNkxnwjbHVSEWVSVD1035-11-96 20:00:00 Test Item Value Reference Range Interpretation Comments Calcium Lvl (test code = Calcium Lvl) 9.3 8.5-10.5 N [facility] CenterHexiuvuPTEJCWBEZ9070-76-07 20:00:00 Test Item Value Reference Range Interpretation Comments Total Protein (test code = Total 6.7 6.4-8.4 N Protein) [facility] CenterKtaofboWMDAZUDEI1967-65-06 20:00:00 Test Item Value Reference Range Interpretation Comments A/G Ratio (test code = A/G Ratio) 1.7 0.7-1.6 H [facility] CenterBaxslhzAVYBXQFJQ2723-97-78 20:00:00 Test Item Value Reference Range Interpretation Comments Globulin (test code = Globulin) 2.5 2.0-4.0 N [facility] CenterVraeaqnJCGRUVSNO1642-08-32 20:00:00 Test Item Value Reference Range Interpretation Comments AST (test code = AST) 18 See_Comment N [Auto mated message] The system which ge nerated this result transmit rohit reference range : <=37. The reference range was not used to interpr et this result as reji l/abnormal. [facility] CenterFzfdfeyMGMEFZPUE1705-56-49 20:00:00 Test Item Value Reference Range Interpretation Comments Alk Phos (test code = Alk Phos) 62 39-136 N [facility] CenterUvtkwdwSLPUPSLOO2607-61-52 20:00:00 Test Item Value Reference Range Interpretation Comments ALT (test code = ALT) 32 See_Comment N [Auto mated message] The system which ge nerated this result transmit rohit reference range : <=65. The reference range was not used to interpr et this result as reji l/abnormal. [facility] CenterTregoafVIZQRMKMO4224-70-33 20:00:00 Test Item Value Reference Range Interpretation Comments Bili Total (test code = Bili Total) 0.7 0.2-1.3 N [facility] HospitalPwnuakaLEUCEKRNKF4441-00-83 20:00:00 Test Item Value Reference Range Interpretation Comments Anisocyte (test code = 1+ *ABN*(11/28/2011 A Anisocyte) 15:00:00) [facility] HospitalCxrggdnDESNBFPPQH2557-40-76 20:00:00 Test Item Value Reference Range Interpretation Comments Monocytes # (test code 0.1 See_Comment N [Aut omated message] The = Monocytes #) system which generated this result tra nsmitted reference range : <=0.8. The reference r leo was not used to int erpret this result as normal/abnormal . [facility] HospitalQtvvkvbNTCSIIOEHY0054-94-80 20:00:00 Test Item Value Reference Range Interpretation Comments Eosinophils # (test code 0.0 See_Comment N [A utomated message] The = Eosinophils #) system whic h generated this result tra nsmitted reference range : <=0.5. The reference r leo was not used to int erpret this result as normal/abnormal . [facility] HospitalLhnxcjnWTFMFMXIBI9311-82-76 20:00:00 Test Item Value Reference Range Interpretation Comments Basophils # (test code 0.0 See_Comment N [Aut omated message] The = Basophils #) system which generated this result tra nsmitted reference range : <=0.2. The reference r leo was not used to int erpret this result as normal/abnormal . [facility] HospitalDjggsqwZVZJGUXRBT1547-22-80 20:00:00 Test Item Value Reference Range Interpretation Comments Neut Vac (test code = Slight *ABN*(11/28/2011 A Neut Vac) 15:00:00) [facility] HospitalYctnwejQAGBCODVPO3181-78-85 20:00:00 Test Item Value Reference Range Interpretation Comments Large Plt (test code = Slight *ABN*(11/28/2011 A Large Plt) 15:00:00) [facility] HospitalNtnzdzrPTFLHEIXKY5011-19-75 20:00:00 Test Item Value Reference Range Interpretation Comments Segs-Bands # (test code = Segs-Bands #) 5.7 1.5-8.1 N [facility] HospitalMeflhddVBATSTKSII6519-42-34 20:00:00 Test Item Value Reference Range Interpretation Comments Lymphocytes # (test code = Lymphocytes 0.8 1.0-5.5 L #) [facility] HospitalSpeggydZBXSJMDJSC7879-25-70 20:00:00 Test Item Value Reference Range Interpretation Comments Eosinophils (test code = 0.2 See_Comment N [A utomated message] The Eosinophils) system which ge nerated this result tra nsmitted reference range : <=4.0. The reference r leo was not used to int erpret this result as normal/abnormal . [facility] HospitalGpzchaqLEGCXRLVDZ9670-28-59 20:00:00 Test Item Value Reference Range Interpretation Comments Basophils (test code = 0.0 See_Comment N [Aut omated message] The Basophils) system which ge nerated this result tra nsmitted reference range : <=1.0. The reference r leo was not used to int erpret this result as normal/abnormal . [facility] HospitalJzclcztOUAJUDCVJQ7800-40-88 20:00:00 Test Item Value Reference Range Interpretation Comments Monocytes (test code = Monocytes) 1.9 2.0-12.0 L [facility] HospitalDdbxfdjFCGEEHYPDR5415-83-45 20:00:00 Test Item Value Reference Range Interpretation Comments Segs (test code = Segs) 86.2 45.0-75.0 H [facility] HospitalTgpvwlzILNFICKKSK1084-09-84 20:00:00 Test Item Value Reference Range Interpretation Comments Lymphocytes (test code = Lymphocytes) 11.7 20.0-40.0 L [facility] HospitalYbtlufoPXFOYBTSAP4669-17-96 20:00:00 Test Item Value Reference Range Interpretation Comments MPV (test code = MPV) 10.8 7.4-10.4 H [facility] HospitalWimfilgKFXQZTAMEP4964-77-33 20:00:00 Test Item Value Reference Range Interpretation Comments Platelet (test code = Platelet) 161 133-450 N [facility] HospitalZefhxcwVSINVSRCLS0181-46-96 20:00:00 Test Item Value Reference Range Interpretation Comments MCHC (test code = MCHC) 35.6 32.0-36.0 N [facility] HospitalIqmnetrQUVEBDWJEG7486-43-68 20:00:00 Test Item Value Reference Range Interpretation Comments RDW (test code = RDW) 12.4 11.5-14.5 N [facility] HospitalZttgfgwXTNOVMCFUT6348-45-92 20:00:00 Test Item Value Reference Range Interpretation Comments MCH (test code = MCH) 30.7 pg 27.0-31.0 N [facility] HospitalXdrxdmyDFISHWPOUP8283-60-39 20:00:00 Test Item Value Reference Range Interpretation Comments MCV (test code = MCV) 86.1 81.0-99.0 N [facility] HospitalLxnqcwkZQGMZAJCSG6580-47-53 20:00:00 Test Item Value Reference Range Interpretation Comments Hct (test code = Hct) 33.6 36.0-48.0 L [facility] HospitalYppwlkoDLRJUWBHOJ7157-31-14 20:00:00 Test Item Value Reference Range Interpretation Comments Hgb (test code = Hgb) 12.0 12.0-16.0 N [facility] HospitalIshexueKHBEVVYFWF7252-36-27 20:00:00 Test Item Value Reference Range Interpretation Comments RBC (test code = RBC) 3.90 4.20-5.40 L [facility] HospitalWgvvmicIQODWOJWZK7498-26-75 20:00:00 Test Item Value Reference Range Interpretation Comments WBC (test code = WBC) 6.6 3.7-10.4 N [facility] CenterKanqcpcOENCSQEYV3714-09-82 20:00:00 Test Item Value Reference Range Interpretation Comments Lactic Acid Lvl (test code = Lactic 1.6 0.5-2.2 N Acid Lvl) [facility] CenterMpaafguHHZEJUATS2684-32-95 20:00:00 Test Item Value Reference Range Interpretation Comments Lipase Lvl (test code = Lipase Lvl) 125 73-393 N [facility] CenterKthtjoqGXNHCZMAP0372-80-28 20:00:00 Test Item Value Reference Range Interpretation Comments Albumin Lvl (test code = Albumin Lvl) 4.2 3.5-5.0 N [facility] CenterRglsxmaJZNYNZRAA0057-77-25 20:00:00 Test Item Value Reference Range Interpretation Comments CO2 (test code = CO2) 23 24-32 L [facility] CenterJbicdncZZIRACYCQ0637-54-77 20:00:00 Test Item Value Reference Range Interpretation Comments Chloride Lvl (test code = Chloride Lvl) 98 95-109 N [facility] CenterXhfnmsrJEAXOESHT8252-67-49 20:00:00 Test Item Value Reference Range Interpretation Comments Potassium Lvl (test code = Potassium 3.8 3.5-5.1 N Lvl) [facility] CenterMpfteplTZPBECCGK6816-81-54 20:00:00 Test Item Value Reference Range Interpretation Comments Sodium Lvl (test code = Sodium Lvl) 138 135-145 N [facility] CenterEuhykynXLRZWATBQ6251-40-22 20:00:00 Test Item Value Reference Range Interpretation Comments Creatinine Lvl (test code = Creatinine 0.7 0.5-1.4 N Lvl) [facility] CenterPdmqhizZTKKXBDIM3974-07-29 20:00:00 Test Item Value Reference Range Interpretation Comments BUN (test code = BUN) 9 7-22 N [facility] CenterGhlkrzbHUMAEPHYZ3111-75-64 20:00:00 Test Item Value Reference Range Interpretation Comments Glucose Lvl (test code = Glucose Lvl) 269 70-99 H [facility] CenterXivpshuYTGDTJLJU3550-32-29 20:00:00 Test Item Value Reference Range Interpretation Comments B/C Ratio (test code = B/C Ratio) 13 6-25 N [facility] CenterMqtubocMKDTLIUDG0109-78-79 20:00:00 Test Item Value Reference Range Interpretation Comments AGAP (test code = AGAP) 20.8 10.0-20.0 H [facility] CenterByixjwwFHFPBIEYE5858-97-68 20:00:00 Test Item Value Reference Range Interpretation Comments Calcium Lvl (test code = Calcium Lvl) 9.3 8.5-10.5 N [facility] CenterCxvltagQWJMFJEDM5659-38-15 20:00:00 Test Item Value Reference Range Interpretation Comments Total Protein (test code = Total 6.7 6.4-8.4 N Protein) [facility] CenterSctdcuqURDKYLVBO3938-93-84 20:00:00 Test Item Value Reference Range Interpretation Comments A/G Ratio (test code = A/G Ratio) 1.7 0.7-1.6 H [facility] CenterZsctrecKFFDNBDYF1410-50-38 20:00:00 Test Item Value Reference Range Interpretation Comments Globulin (test code = Globulin) 2.5 2.0-4.0 N [facility] CenterDlploctIGAIOHQHZ4291-37-87 20:00:00 Test Item Value Reference Range Interpretation Comments AST (test code = AST) 18 See_Comment N [Auto mated message] The system which ge nerated this result transmit rohit reference range : <=37. The reference range was not used to interpr et this result as reji l/abnormal. [facility] CenterQzrazxeJSKEBGDTZ0038-73-75 20:00:00 Test Item Value Reference Range Interpretation Comments Alk Phos (test code = Alk Phos) 62 39-136 N [facility] CenterGzasfnsWSETIOJML4835-39-02 20:00:00 Test Item Value Reference Range Interpretation Comments ALT (test code = ALT) 32 See_Comment N [Auto mated message] The system which ge nerated this result transmit rohit reference range : <=65. The reference range was not used to interpr et this result as reji l/abnormal. [place] 045392-06-09 20:00:00 Test Item Value Reference Range Interpretation Comments Bili Total (test code = Bili Total) 0.7 0.2-1.3 N [facility] HospitalDggkbppEJZJFGPLQD8750-08-47 20:00:00 Test Item Value Reference Range Interpretation Comments Anisocyte (test code = 1+ *ABN*(11/28/2011 A Anisocyte) 15:00:00) [facility] HospitalWqtgmelJIGRHAWEJR3142-23-28 20:00:00 Test Item Value Reference Range Interpretation Comments Monocytes # (test code 0.1 See_Comment N [Aut omated message] The = Monocytes #) system which generated this result tra nsmitted reference range : <=0.8. The reference r leo was not used to int erpret this result as normal/abnormal . [facility] HospitalUpfkhwfIIEMXQLMKS4293-70-41 20:00:00 Test Item Value Reference Range Interpretation Comments Eosinophils # (test code 0.0 See_Comment N [A utomated message] The = Eosinophils #) system whic h generated this result tra nsmitted reference range : <=0.5. The reference r leo was not used to int erpret this result as normal/abnormal . [facility] HospitalSpnucbmYAJCYIXLOO9113-66-85 20:00:00 Test Item Value Reference Range Interpretation Comments Basophils # (test code 0.0 See_Comment N [Aut omated message] The = Basophils #) system which generated this result tra nsmitted reference range : <=0.2. The reference r leo was not used to int erpret this result as normal/abnormal . [facility] HospitalNwziazaRSSARTOJGV8334-44-36 20:00:00 Test Item Value Reference Range Interpretation Comments Neut Vac (test code = Slight *ABN*(11/28/2011 A Neut Vac) 15:00:00) [facility] HospitalAlgkmmmYKZPAAJOLJ1479-51-50 20:00:00 Test Item Value Reference Range Interpretation Comments Large Plt (test code = Slight *ABN*(11/28/2011 A Large Plt) 15:00:00) [facility] HospitalXgestauVGLGJMNSWD2579-80-28 20:00:00 Test Item Value Reference Range Interpretation Comments Segs-Bands # (test code = Segs-Bands #) 5.7 1.5-8.1 N [facility] HospitalWckimwqUPREJUWAPI6017-34-79 20:00:00 Test Item Value Reference Range Interpretation Comments Lymphocytes # (test code = Lymphocytes 0.8 1.0-5.5 L #) [facility] HospitalSiexnhaJODPIGFBHK1884-62-79 20:00:00 Test Item Value Reference Range Interpretation Comments Eosinophils (test code = 0.2 See_Comment N [A utomated message] The Eosinophils) system which ge nerated this result tra nsmitted reference range : <=4.0. The reference r leo was not used to int erpret this result as normal/abnormal . [facility] HospitalQvdgwnnRQAYCNBJRS3429-03-44 20:00:00 Test Item Value Reference Range Interpretation Comments Basophils (test code = 0.0 See_Comment N [Aut omated message] The Basophils) system which ge nerated this result tra nsmitted reference range : <=1.0. The reference r leo was not used to int erpret this result as normal/abnormal . [facility] HospitalEehtiqsRHWBWCFDAD0132-51-66 20:00:00 Test Item Value Reference Range Interpretation Comments Monocytes (test code = Monocytes) 1.9 2.0-12.0 L [facility] HospitalQwukrmrFUDAOHYUBT1619-10-36 20:00:00 Test Item Value Reference Range Interpretation Comments Segs (test code = Segs) 86.2 45.0-75.0 H [facility] HospitalLsywgelEAGJCSNTHL4675-27-93 20:00:00 Test Item Value Reference Range Interpretation Comments Lymphocytes (test code = Lymphocytes) 11.7 20.0-40.0 L [facility] HospitalCgaphlfETSMQBCHHW7678-59-13 20:00:00 Test Item Value Reference Range Interpretation Comments MPV (test code = MPV) 10.8 7.4-10.4 H [facility] HospitalHdfnwboEFBZCQQKUE2525-43-11 20:00:00 Test Item Value Reference Range Interpretation Comments Platelet (test code = Platelet) 161 133-450 N [facility] HospitalZxpdognNDHILTEYLO5247-80-79 20:00:00 Test Item Value Reference Range Interpretation Comments MCHC (test code = MCHC) 35.6 32.0-36.0 N [facility] HospitalBhelnftBZMOXUAGAT2170-58-06 20:00:00 Test Item Value Reference Range Interpretation Comments RDW (test code = RDW) 12.4 11.5-14.5 N [facility] HospitalSrdzoxiMIOHXJPVYB7618-68-71 20:00:00 Test Item Value Reference Range Interpretation Comments MCH (test code = MCH) 30.7 pg 27.0-31.0 N [facility] HospitalQbonekmKZFHIXYGJB7959-82-63 20:00:00 Test Item Value Reference Range Interpretation Comments MCV (test code = MCV) 86.1 81.0-99.0 N [facility] HospitalUrboflrLVEXACFPJV4603-98-15 20:00:00 Test Item Value Reference Range Interpretation Comments Hct (test code = Hct) 33.6 36.0-48.0 L [facility] HospitalUzozzeaYUHURHMFCZ1795-83-68 20:00:00 Test Item Value Reference Range Interpretation Comments Hgb (test code = Hgb) 12.0 12.0-16.0 N [facility] HospitalJumntfcPTMZQDAXAR5630-14-38 20:00:00 Test Item Value Reference Range Interpretation Comments RBC (test code = RBC) 3.90 4.20-5.40 L [facility] HospitalTqipkfyUTZLJGPQYR2093-59-22 20:00:00 Test Item Value Reference Range Interpretation Comments WBC (test code = WBC) 6.6 3.7-10.4 N [facility] CenterVvubhfuTMSKPELRF4032-87-65 19:51:00 Test Item Value Reference Range Interpretation Comments UDS Note (test code = See Note UDS Note) 5*NA*(11/28/2011 14:51:00) [facility] CenterTnaujhfYFNFVKJLM9309-94-96 19:51:00 Test Item Value Reference Range Interpretation Comments U Phencyc Scr (test Negative code = U Phencyc Scr) *NA*(11/28/2011 14:51:00) [facility] CenterZahoujiZCCZYEQZD0856-97-08 19:51:00 Test Item Value Reference Range Interpretation Comments U Kelly Scr (test code Negative *NA*(11/28/2011 = U Kelly Scr) 14:51:00) [facility] CenterSedcfbuWDTSGLWGK5514-08-33 19:51:00 Test Item Value Reference Range Interpretation Comments U Amph Scr (test code Negative *NA*(11/28/2011 = U Amph Scr) 14:51:00) [facility] CenterSafpdaxKGNWPEWMY5300-16-00 19:51:00 Test Item Value Reference Range Interpretation Comments U Opiate Scr (test Negative code = U Opiate Scr) *NA*(11/28/2011 14:51:00) [facility] CenterHitirlyICBJXABST8063-11-55 19:51:00 Test Item Value Reference Range Interpretation Comments U Cocaine Scr (test Negative code = U Cocaine Scr) *NA*(11/28/2011 14:51:00) [facility]EfatgksFPWXLLSHD2816-94-95 19:51:00 Test Item Value Reference Range Interpretation Comments U Cannab Scr (test Negative code = U Cannab Scr) *NA*(11/28/2011 14:51:00) [facility] CenterTsmjaojZFDZEWYUZ8936-80-77 19:51:00 Test Item Value Reference Range Interpretation Comments U Benzodia Scr (test Negative code = U Benzodia Scr) *NA*(11/28/2011 14:51:00) [facility] CenterTpqsyvzAZZAWEFDG5248-03-93 19:51:00 Test Item Value Reference Range Interpretation Comments UDS Note (test code = See Note UDS Note) 5*NA*(11/28/2011 14:51:00) [facility] CenterKroaueqWVTMPGHKC6573-97-60 19:51:00 Test Item Value Reference Range Interpretation Comments U Phencyc Scr (test Negative code = U Phencyc Scr) *NA*(11/28/2011 14:51:00) [facility] CenterSkxwhsmLFGGZBCPM6788-78-16 19:51:00 Test Item Value Reference Range Interpretation Comments U Kelly Scr (test code Negative *NA*(11/28/2011 = U Kelly Scr) 14:51:00) [facility] CenterGnuqmmuNHKMGBAZH8621-53-33 19:51:00 Test Item Value Reference Range Interpretation Comments U Amph Scr (test code Negative *NA*(11/28/2011 = U Amph Scr) 14:51:00) [facility] CenterFrgqzikDQLFNGQXG5367-25-41 19:51:00 Test Item Value Reference Range Interpretation Comments U Opiate Scr (test Negative code = U Opiate Scr) *NA*(11/28/2011 14:51:00) [facility]HgbptcqGGCDKLAWS7324-90-21 19:51:00 Test Item Value Reference Range Interpretation Comments U Cocaine Scr (test Negative code = U Cocaine Scr) *NA*(11/28/2011 14:51:00) [facility] CenterJhygzfgFIMDJZUMJ9924-02-45 19:51:00 Test Item Value Reference Range Interpretation Comments U Cannab Scr (test Negative code = U Cannab Scr) *NA*(11/28/2011 14:51:00) [facility] CenterHgsffbfOOOZXHRIS5377-48-21 19:51:00 Test Item Value Reference Range Interpretation Comments U Benzodia Scr (test Negative code = U Benzodia Scr) *NA*(11/28/2011 14:51:00) [facility] CenterSlzzcleOEMNMEUVI9604-25-47 19:51:00 Test Item Value Reference Range Interpretation Comments UDS Note (test code = See Note UDS Note) 5*NA*(11/28/2011 14:51:00) [facility] CenterRgdkultTYIJNGKBS1340-01-22 19:51:00 Test Item Value Reference Range Interpretation Comments U Phencyc Scr (test Negative code = U Phencyc Scr) *NA*(11/28/2011 14:51:00) [facility] CenterDuqccqwFAVJYQKMG7849-92-05 19:51:00 Test Item Value Reference Range Interpretation Comments U Kelly Scr (test code Negative *NA*(11/28/2011 = U Kelly Scr) 14:51:00) [facility] CenterLcwosplCETUCUFYN6939-89-81 19:51:00 Test Item Value Reference Range Interpretation Comments U Amph Scr (test code Negative *NA*(11/28/2011 = U Amph Scr) 14:51:00) [facility] CenterGoqjtlyPFVLVXXVH3393-94-32 19:51:00 Test Item Value Reference Range Interpretation Comments U Opiate Scr (test Negative code = U Opiate Scr) *NA*(11/28/2011 14:51:00) [facility] CenterSvzpfdeTBIZXGJKL6771-65-74 19:51:00 Test Item Value Reference Range Interpretation Comments U Cocaine Scr (test Negative code = U Cocaine Scr) *NA*(11/28/2011 14:51:00) [facility] CenterOrrzpqxDXBAHTPZB1364-69-92 19:51:00 Test Item Value Reference Range Interpretation Comments U Cannab Scr (test Negative code = U Cannab Scr) *NA*(11/28/2011 14:51:00) [facility] CenterFpynilrIIBRIEOGF8044-85-52 19:51:00 Test Item Value Reference Range Interpretation Comments U Benzodia Scr (test Negative code = U Benzodia Scr) *NA*(11/28/2011 14:51:00) [facility] CenterAcohldpNSJAESJAW4866-02-72 19:51:00 Test Item Value Reference Range Interpretation Comments UDS Note (test code = See Note UDS Note) 5*NA*(11/28/2011 14:51:00) [facility] CenterLcidavbPQPKFNWMV8522-00-57 19:51:00 Test Item Value Reference Range Interpretation Comments U Phencyc Scr (test Negative code = U Phencyc Scr) *NA*(11/28/2011 14:51:00) [facility] CenterSyhbllcLZHOLGXNL2535-72-52 19:51:00 Test Item Value Reference Range Interpretation Comments U Kelly Scr (test code Negative *NA*(11/28/2011 = U Kelly Scr) 14:51:00) [facility] CenterVbdxoyxMMJRDTRCN0235-15-65 19:51:00 Test Item Value Reference Range Interpretation Comments U Amph Scr (test code Negative *NA*(11/28/2011 = U Amph Scr) 14:51:00) [facility] CenterBljbkedXKYUMRWFR0401-81-23 19:51:00 Test Item Value Reference Range Interpretation Comments U Opiate Scr (test Negative code = U Opiate Scr) *NA*(11/28/2011 14:51:00) [facility] CenterRvdrbmcCXHIHTLNE9166-64-35 19:51:00 Test Item Value Reference Range Interpretation Comments U Cocaine Scr (test Negative code = U Cocaine Scr) *NA*(11/28/2011 14:51:00) [facility] CenterCiocdmeBWSLHRUUD5126-22-81 19:51:00 Test Item Value Reference Range Interpretation Comments U Cannab Scr (test Negative code = U Cannab Scr) *NA*(11/28/2011 14:51:00) [facility] CenterLphhpuiKNLROFKLQ8796-15-15 19:51:00 Test Item Value Reference Range Interpretation Comments U Benzodia Scr (test Negative code = U Benzodia Scr) *NA*(11/28/2011 14:51:00) [facility] CenterUjigltiRBTYUHWZD8621-89-16 19:51:00 Test Item Value Reference Range Interpretation Comments UDS Note (test code = See Note UDS Note) 5*NA*(11/28/2011 14:51:00) [facility] Cen[id number] 19:51:00 Test Item Value Reference Range Interpretation Comments U Phencyc Scr (test Negative code = U Phencyc Scr) *NA*(11/28/2011 14:51:00) [facility] CenterZwkatbhPYMNTYFLV2535-22-25 19:51:00 Test Item Value Reference Range Interpretation Comments U Kelly Scr (test code Negative *NA*(11/28/2011 = U Kelly Scr) 14:51:00) [facility] CenterGzmbnlnTUXNVLBNF6507-47-86 19:51:00 Test Item Value Reference Range Interpretation Comments U Amph Scr (test code Negative *NA*(11/28/2011 = U Amph Scr) 14:51:00) [facility] CenterOjoqfupGRABRKXEV6021-30-03 19:51:00 Test Item Value Reference Range Interpretation Comments U Opiate Scr (test Negative code = U Opiate Scr) *NA*(11/28/2011 14:51:00) [facility] CenterIkyaksmIAUCSCSYO8667-97-28 19:51:00 Test Item Value Reference Range Interpretation Comments U Cocaine Scr (test Negative code = U Cocaine Scr) *NA*(11/28/2011 14:51:00) [facility] CenterBifcbgrQUHFYTJEC2859-04-09 19:51:00 Test Item Value Reference Range Interpretation Comments U Cannab Scr (test Negative code = U Cannab Scr) *NA*(11/28/2011 14:51:00) [facility] CenterMpolnetOKTPLOYAV6770-51-97 19:51:00 Test Item Value Reference Range Interpretation Comments U Benzodia Scr (test Negative code = U Benzodia Scr) *NA*(11/28/2011 14:51:00) [facility] GLUCOSE [id number] 16:20:00 Test Item Value Reference Range Interpretation Comments Comment1 (test code = Comment1) Notify RN/ [facility] GLUCOSE [id number] 16:20:00 Test Item Value Reference Range Interpretation Comments Gluc POC Lifscn (test code = Gluc POC 328 70-99 H Lifscn) [facility] GLUCOSE [id number] 16:20:00 Test Item Value Reference Range Interpretation Comments Comment1 (test code = Comment1) Notify RN/ [facility] GLUCOSE [id number] 16:20:00 Test Item Value Reference Range Interpretation Comments Gluc POC Lifscn (test code = Gluc POC 328 70-99 H Lifscn) [facility] GLUCOSE [id number] 16:20:00 Test Item Value Reference Range Interpretation Comments Comment1 (test code = Comment1) Notify RN/ [facility] GLUCOSE [id number] 16:20:00 Test Item Value Reference Range Interpretation Comments Gluc POC Lifscn (test code = Gluc POC 328 70-99 H Lifscn) [facility] GLUCOSE [id number] 16:20:00 Test Item Value Reference Range Interpretation Comments Comment1 (test code = Comment1) Notify RN/ [facility] GLUCOSE [id number] 16:20:00 Test Item Value Reference Range Interpretation Comments Gluc POC Lifscn (test code = Gluc POC 328 70-99 H Lifscn) [facility] GLUCOSE [id number] 16:20:00 Test Item Value Reference Range Interpretation Comments Comment1 (test code = Comment1) Notify RN/ [facility] GLUCOSE [id number] 16:20:00 Test Item Value Reference Range Interpretation Comments Gluc POC Lifscn (test code = Gluc POC 328 70-99 H Lifscn) [facility] CenterZxxafjpVIWGFFBXM4153-94-15 15:30:00 Test Item Value Reference Range Interpretation Comments U Preg (test code = U Negative (09/18/2011 N Preg) 10:30:00) [facility] Cent[id number] 15:30:00 Test Item Value Reference Range Interpretation Comments UA WBC (test code = UA None Seen (09/18/2011 N WBC) 10:30:00) [facility] CenterYkxjnzoJEUOPOIUUF5613-38-93 15:30:00 Test Item Value Reference Range Interpretation Comments UA RBC (test None Seen See_Comment N [Automated mes pastor] code = UA RBC) (09/18/2011 The system [facility] 10:30:00) generated this result transmitted ref erence range: <=2. The reference range was not used to int erpret this result as normal/abnormal . [facility] CenterXeabizsFBFTDZWZFR6275-32-21 15:30:00 Test Item Value Reference Range Interpretation Comments UA Bacteria (test code = None Seen (09/18/2011 N UA Bacteria) 10:30:00) [facility] CenterXclhgbgXSEMBFGLYL6893-60-36 15:30:00 Test Item Value Reference Range Interpretation Comments UA Amorph Destiny (test Few /HPF A code = UA Amorph Destiny) *ABN*(09/18/2011 10:30:00) [facility] Cent[id number] 15:30:00 Test Item Value Reference Range Interpretation Comments Micro? (test code = Performed (09/18/2011 N Micro?) 10:30:00) [facility] CenterHeubwxyYOIFGJVRNE4842-37-49 15:30:00 Test Item Value Reference Range Interpretation Comments UA Sq Epi (test code = Rare /LPF (09/18/2011 N UA Sq Epi) 10:30:00) [facility] CenterQvlunqvDCAQTYNCPS8391-57-19 15:30:00 Test Item Value Reference Range Interpretation Comments UA Ketones (test code = 15 mg/dL A UA Ketones) *ABN*(09/18/2011 10:30:00) [facility] CenterAgwjcjsKHHPNXSJDE5121-32-38 15:30:00 Test Item Value Reference Range Interpretation Comments UA Glucose (test code = >=1000 mg/dL A UA Glucose) *ABN*(09/18/2011 10:30:00) [facility] CenterGvdidfcRUYNEUIPPL5936-21-66 15:30:00 Test Item Value Reference Range Interpretation Comments UA Protein (test code = Trace A UA Protein) *ABN*(09/18/2011 10:30:00) [facility] CenterSissssoZWDAXBUUTY2113-28-88 15:30:00 Test Item Value Reference Range Interpretation Comments UA Urobilinogen (test code = UA 0.2 0.1-1.0 N Urobilinogen) [facility] CenterDvxafznYVFYUZDAOU4048-24-43 15:30:00 Test Item Value Reference Range Interpretation Comments UA Blood (test code = Negative (09/18/2011 N UA Blood) 10:30:00) [facility] CenterOrruvdbKEYEMUHMWP8887-04-19 15:30:00 Test Item Value Reference Range Interpretation Comments UA Bili (test code = Negative *NA*(09/18/2011 UA Bili) 10:30:00) [facility] CenterRxscrjxJQOOTGRCYW1992-13-87 15:30:00 Test Item Value Reference Range Interpretation Comments UA Leuk Est (test Negative (09/18/2011 N code = UA Leuk Est) 10:30:00) [facility] CenterHatxoodYJXZJTOCPI1932-42-63 15:30:00 Test Item Value Reference Range Interpretation Comments UA Nitrite (test code Negative (09/18/2011 N = UA Nitrite) 10:30:00) [facility] CenterTdvjcpzTBABMHOLJC3791-87-50 15:30:00 Test Item Value Reference Range Interpretation Comments UA pH (test code = UA pH) 7.5 1 5.0-8.0 N [facility] CenterIjlssqwNKDYCKZNDP7801-80-27 15:30:00 Test Item Value Reference Range Interpretation Comments UA Spec Grav (test code = UA Spec 1.010 1 N Grav) [facility] CenterRhvnatjARICESHTNI4338-33-65 15:30:00 Test Item Value Reference Range Interpretation Comments UA Turbidity (test code Slight Cloudy N = UA Turbidity) (09/18/2011 10:30:00) [facility] CenterJlgpztqNGAEOBPTYF0274-50-99 15:30:00 Test Item Value Reference Range Interpretation Comments UA Color (test code = Yellow *NA*(09/18/2011 UA Color) 10:30:00) [facility] CenterToczlslTOGEVAZSQ2660-83-78 15:30:00 Test Item Value Reference Range Interpretation Comments U Preg (test code = U Negative (09/18/2011 N Preg) 10:30:00) [facility] CenterJhnvlraJFRSJTJRBG4880-30-58 15:30:00 Test Item Value Reference Range Interpretation Comments UA WBC (test code = UA None Seen (09/18/2011 N WBC) 10:30:00) [facility] CenterOlrxuyqQMQTZWZGOM7533-07-36 15:30:00 Test Item Value Reference Range Interpretation Comments UA RBC (test None Seen See_Comment N [Automated mes pastor] code = UA RBC) (09/18/2011 The system ich 10:30:00) generated this result transmitted ref erence range: <=2. The reference range was not used to int erpret this result as normal/abnormal . [facility] CenterTyysvqiUAMXSIKLJI4208-53-28 15:30:00 Test Item Value Reference Range Interpretation Comments UA Bacteria (test code = None Seen (09/18/2011 N UA Bacteria) 10:30:00) [facility]anoBctmaciRUTDOSBRRT8437-76-68 15:30:00 Test Item Value Reference Range Interpretation Comments UA Amorph Edstiny (test Few /HPF A code = UA Amorph Destiny) *ABN*(09/18/2011 10:30:00) [facility] CenterKailnbqVTPOZFNZUS4687-40-53 15:30:00 Test Item Value Reference Range Interpretation Comments Micro? (test code = Performed (09/18/2011 N Micro?) 10:30:00) [facility] CenterFsrvradTHXGUDRFNZ9967-33-48 15:30:00 Test Item Value Reference Range Interpretation Comments UA Sq Epi (test code = Rare /LPF (09/18/2011 N UA Sq Epi) 10:30:00) [facility] CenterGasgkewSCSLSVFJZZ9629-60-09 15:30:00 Test Item Value Reference Range Interpretation Comments UA Ketones (test code = 15 mg/dL A UA Ketones) *ABN*(09/18/2011 10:30:00) [facility] CenterXbumzdzLPYPIWMJLV7827-31-76 15:30:00 Test Item Value Reference Range Interpretation Comments UA Glucose (test code = >=1000 mg/dL A UA Glucose) *ABN*(09/18/2011 10:30:00) [facility] CenterFvwjejhCTFVWXBNYS2523-42-81 15:30:00 Test Item Value Reference Range Interpretation Comments UA Protein (test code = Trace A UA Protein) *ABN*(09/18/2011 10:30:00) [facility] CenterJkastflFQTBBAQCMS1606-86-97 15:30:00 Test Item Value Reference Range Interpretation Comments UA Urobilinogen (test code = UA 0.2 0.1-1.0 N Urobilinogen) [facility] CenterGsjbagpDTLATLATSE1900-98-71 15:30:00 Test Item Value Reference Range Interpretation Comments UA Blood (test code = Negative (09/18/2011 N UA Blood) 10:30:00) [facility] CenterSqhtyvjXKRTHVAMDA0717-87-19 15:30:00 Test Item Value Reference Range Interpretation Comments UA Bili (test code = Negative *NA*(09/18/2011 UA Bili) 10:30:00) [facility] CenterUlbwjrbXDEFFDUYTC1088-69-62 15:30:00 Test Item Value Reference Range Interpretation Comments UA Leuk Est (test Negative (09/18/2011 N code = UA Leuk Est) 10:30:00) [facility] CenterZttaphvELXHSHQBDY5967-54-22 15:30:00 Test Item Value Reference Range Interpretation Comments UA Nitrite (test code Negative (09/18/2011 N = UA Nitrite) 10:30:00) [facility] CenterMexgtqbNQWPWFAQJB9607-73-96 15:30:00 Test Item Value Reference Range Interpretation Comments UA pH (test code = UA pH) 7.5 1 5.0-8.0 N [facility] CenterLbryivnDOOLVAIXNO1400-87-61 15:30:00 Test Item Value Reference Range Interpretation Comments UA Spec Grav (test code = UA Spec 1.010 1 N Grav) [facility] CenterMlrioycKJNNGGHEOY7402-77-32 15:30:00 Test Item Value Reference Range Interpretation Comments UA Turbidity (test code Slight Cloudy N = UA Turbidity) (09/18/2011 10:30:00) [facility] CenterOnewtlwROVELLVDSD6101-81-37 15:30:00 Test Item Value Reference Range Interpretation Comments UA Color (test code = Yellow *NA*(09/18/2011 UA Color) 10:30:00) [facility] CenterTxbrsuhJMXHWRAAD6447-77-06 15:30:00 Test Item Value Reference Range Interpretation Comments U Preg (test code = U Negative (09/18/2011 N Preg) 10:30:00) [facility] CenterCspjugxESQYSFJOHJ1773-68-08 15:30:00 Test Item Value Reference Range Interpretation Comments UA WBC (test code = UA None Seen (09/18/2011 N WBC) 10:30:00) [facility] CenterGlmsbfuNOIKZLGBXW5371-53-11 15:30:00 Test Item Value Reference Range Interpretation Comments UA RBC (test None Seen See_Comment N [Automated mes pastor] code = UA RBC) (09/18/2011 The system ich 10:30:00) generated this result transmitted ref erence range: <=2. The reference range was not used to int erpret this result as normal/abnormal . [facility] CenterMizkqdjTKAAKEOKOI1970-57-50 15:30:00 Test Item Value Reference Range Interpretation Comments UA Bacteria (test code = None Seen (09/18/2011 N UA Bacteria) 10:30:00) [facility]anoOrwuukoDDJCZOJHZC4436-73-73 15:30:00 Test Item Value Reference Range Interpretation Comments UA Amorph Destiny (test Few /HPF A code = UA Amorph Destiny) *ABN*(09/18/2011 10:30:00) [facility]anoAsrdcgaOCRMMCISEJ5373-05-64 15:30:00 Test Item Value Reference Range Interpretation Comments Micro? (test code = Performed (09/18/2011 N Micro?) 10:30:00) [facility]anoRtkkjfsCQLZKQGNVW6863-79-94 15:30:00 Test Item Value Reference Range Interpretation Comments UA Sq Epi (test code = Rare /LPF (09/18/2011 N UA Sq Epi) 10:30:00) [facility] CenterRtbzriyZJXHIMWVCO5584-61-26 15:30:00 Test Item Value Reference Range Interpretation Comments UA Ketones (test code = 15 mg/dL A UA Ketones) *ABN*(09/18/2011 10:30:00) [facility] CenterXakfjknFHFDSEFIBO9523-50-38 15:30:00 Test Item Value Reference Range Interpretation Comments UA Glucose (test code = >=1000 mg/dL A UA Glucose) *ABN*(09/18/2011 10:30:00) [facility] CenterAcgjfszHTRXLOQKSR7492-79-12 15:30:00 Test Item Value Reference Range Interpretation Comments UA Protein (test code = Trace A UA Protein) *ABN*(09/18/2011 10:30:00) [facility] CenterDeitqfeINCMVLOIHZ7572-38-14 15:30:00 Test Item Value Reference Range Interpretation Comments UA Urobilinogen (test code = UA 0.2 0.1-1.0 N Urobilinogen) [facility] CenterYtklxskHZSIBYZJWH5031-85-98 15:30:00 Test Item Value Reference Range Interpretation Comments UA Blood (test code = Negative (09/18/2011 N UA Blood) 10:30:00) [facility] CenterOvqundyDJDLWXLWMU9067-86-12 15:30:00 Test Item Value Reference Range Interpretation Comments UA Bili (test code = Negative *NA*(09/18/2011 UA Bili) 10:30:00) [facility] CenterImyrnmlNIKKAOGOUB8069-22-35 15:30:00 Test Item Value Reference Range Interpretation Comments UA Leuk Est (test Negative (09/18/2011 N code = UA Leuk Est) 10:30:00) [facility] CenterOeuwnftFKUMHSXWOJ4076-07-01 15:30:00 Test Item Value Reference Range Interpretation Comments UA Nitrite (test code Negative (09/18/2011 N = UA Nitrite) 10:30:00) [facility] CenterFcbizuqKTHSKCOLGH2910-78-89 15:30:00 Test Item Value Reference Range Interpretation Comments UA pH (test code = UA pH) 7.5 1 5.0-8.0 N [facility]anoAgecutsPQOMBVVDQZ1298-81-72 15:30:00 Test Item Value Reference Range Interpretation Comments UA Spec Grav (test code = UA Spec 1.010 1 N Grav) [facility] CenterXzidiwgDYIRBUITCE6213-82-46 15:30:00 Test Item Value Reference Range Interpretation Comments UA Turbidity (test code Slight Cloudy N = UA Turbidity) (09/18/2011 10:30:00) [facility] PlanoGrxufqrWLPRVPHRID6024-01-50 15:30:00 Test Item Value Reference Range Interpretation Comments UA Color (test code = Yellow *NA*(09/18/2011 UA Color) 10:30:00) [facility] CenterYnmnmiyCHMNFMWJW8796-30-30 15:30:00 Test Item Value Reference Range Interpretation Comments U Preg (test code = U Negative (09/18/2011 N Preg) 10:30:00) [facility]anoVzxwuxlWJWRHUFTOW7586-27-55 15:30:00 Test Item Value Reference Range Interpretation Comments UA WBC (test code = UA None Seen (09/18/2011 N WBC) 10:30:00) [facility] PlanoBvbuechNWEPHJFZBT0867-90-32 15:30:00 Test Item Value Reference Range Interpretation Comments UA RBC (test None Seen See_Comment N [Automated mes pastor] code = UA RBC) (09/18/2011 The system [employer] ich 10:30:00) generated this result transmitted ref erence range: <=2. The reference range was not used to int erpret this result as normal/abnormal . [facility]anoVwdejhzISNYTRTWTJ9809-37-28 15:30:00 Test Item Value Reference Range Interpretation Comments UA Bacteria (test code = None Seen (09/18/2011 N UA Bacteria) 10:30:00) [facility] PlanoIgeqzaaCJQGOMGPPQ4145-10-41 15:30:00 Test Item Value Reference Range Interpretation Comments UA Amorph Destiny (test Few /HPF A code = UA Amorph Destiny) *ABN*(09/18/2011 10:30:00) [facility] PlanoSjgiccaYPGANZYJMQ7802-23-14 15:30:00 Test Item Value Reference Range Interpretation Comments Micro? (test code = Performed (09/18/2011 N Micro?) 10:30:00) [facility] PlanoNijkmheKCIKJXHHLY7901-61-85 15:30:00 Test Item Value Reference Range Interpretation Comments UA Sq Epi (test code = Rare /LPF (09/18/2011 N UA Sq Epi) 10:30:00) [facility] PlanoUxvqwpcUYFBIASBBB7024-97-21 15:30:00 Test Item Value Reference Range Interpretation Comments UA Ketones (test code = 15 mg/dL A UA Ketones) *ABN*(09/18/2011 10:30:00) [facility] CenterKyjoibfCLBVEGWCDV8355-72-68 15:30:00 Test Item Value Reference Range Interpretation Comments UA Glucose (test code = >=1000 mg/dL A UA Glucose) *ABN*(09/18/2011 10:30:00) [facility] CenterQzrmmmkCWFBFHZAOA0598-87-45 15:30:00 Test Item Value Reference Range Interpretation Comments UA Protein (test code = Trace A UA Protein) *ABN*(09/18/2011 10:30:00) [facility] CenterFjzjuchJMMCOOADMT5660-31-34 15:30:00 Test Item Value Reference Range Interpretation Comments UA Urobilinogen (test code = UA 0.2 0.1-1.0 N Urobilinogen) [facility] CenterTiyudvrCEZORNYIGA6719-88-65 15:30:00 Test Item Value Reference Range Interpretation Comments UA Blood (test code = Negative (09/18/2011 N UA Blood) 10:30:00) [facility] CenterAdrybzwSASCLXBXBG5112-35-29 15:30:00 Test Item Value Reference Range Interpretation Comments UA Bili (test code = Negative *NA*(09/18/2011 UA Bili) 10:30:00) [facility] CenterGeuvziuEENYVFPMAK0138-65-01 15:30:00 Test Item Value Reference Range Interpretation Comments UA Leuk Est (test Negative (09/18/2011 N code = UA Leuk Est) 10:30:00) [facility] CenterByvjtrxNBIBVNWHQF4361-21-10 15:30:00 Test Item Value Reference Range Interpretation Comments UA Nitrite (test code Negative (09/18/2011 N = UA Nitrite) 10:30:00) [facility] CenterUmorjxwXTFERUECRF5971-49-14 15:30:00 Test Item Value Reference Range Interpretation Comments UA pH (test code = UA pH) 7.5 1 5.0-8.0 N [facility] CenterLsgbpztANEZEGNLEO0882-06-15 15:30:00 Test Item Value Reference Range Interpretation Comments UA Spec Grav (test code = UA Spec 1.010 1 N Grav) [facility] CenterYpqupwdTESJLYWZKU0844-26-57 15:30:00 Test Item Value Reference Range Interpretation Comments UA Turbidity (test code Slight Cloudy N = UA Turbidity) (09/18/2011 10:30:00) [facility] CenterTmgcwkfNHSIEUJTHC7128-83-08 15:30:00 Test Item Value Reference Range Interpretation Comments UA Color (test code = Yellow *NA*(09/18/2011 UA Color) 10:30:00) [facility] CenterQruftbtRSIDPNTWL6605-81-17 15:30:00 Test Item Value Reference Range Interpretation Comments U Preg (test code = U Negative (09/18/2011 N Preg) 10:30:00) [facility] CenterLpcmmxgEBRYPIZVRA1869-50-46 15:30:00 Test Item Value Reference Range Interpretation Comments UA WBC (test code = UA None Seen (09/18/2011 N WBC) 10:30:00) [facility]anoUiucjxgGCEGKNSCMK7390-38-18 15:30:00 Test Item Value Reference Range Interpretation Comments UA RBC (test None Seen See_Comment N [Automated mes pastor] code = UA RBC) (09/18/2011 The system wh ich 10:30:00) generated this result transmitted ref erence range: <=2. The reference range was not used to int erpret this result as normal/abnormal . [facility] CenterHfgaosvITHBCSWXNG5630-14-70 15:30:00 Test Item Value Reference Range Interpretation Comments UA Bacteria (test code = None Seen (09/18/2011 N UA Bacteria) 10:30:00) [facility] CenterDssxvnaKSBKUERLWH9414-56-17 15:30:00 Test Item Value Reference Range Interpretation Comments UA Amorph Destiny (test Few /HPF A code = UA Amorph Destiny) *ABN*(09/18/2011 10:30:00) [facility] CenterNwwybplFRVGJLLSEY0290-56-72 15:30:00 Test Item Value Reference Range Interpretation Comments Micro? (test code = Performed (09/18/2011 N Micro?) 10:30:00) [facility]anoMmbcwlsCFWDIXKDXN1624-24-15 15:30:00 Test Item Value Reference Range Interpretation Comments UA Sq Epi (test code = Rare /LPF (09/18/2011 N UA Sq Epi) 10:30:00) [facility] CenterZgyrvcuJJBZJDOKBY2240-82-66 15:30:00 Test Item Value Reference Range Interpretation Comments UA Ketones (test code = 15 mg/dL A UA Ketones) *ABN*(09/18/2011 10:30:00) [facility] CenterQfoolzvHTQVHSNDRI6016-76-37 15:30:00 Test Item Value Reference Range Interpretation Comments UA Glucose (test code = >=1000 mg/dL A UA Glucose) *ABN*(09/18/2011 10:30:00) [facility] CenterHojvslhNQCNKVONWE2845-43-20 15:30:00 Test Item Value Reference Range Interpretation Comments UA Protein (test code = Trace A UA Protein) *ABN*(09/18/2011 10:30:00) [facility] CenterTjjxlimYUYAUUUAMH6211-62-04 15:30:00 Test Item Value Reference Range Interpretation Comments UA Urobilinogen (test code = UA 0.2 0.1-1.0 N Urobilinogen) [facility] CenterGscfzlqLXHRDEPAGC7372-11-60 15:30:00 Test Item Value Reference Range Interpretation Comments UA Blood (test code = Negative (09/18/2011 N UA Blood) 10:30:00) [facility] CenterVsgwtudAYXVMILRJJ0936-51-17 15:30:00 Test Item Value Reference Range Interpretation Comments UA Bili (test code = Negative *NA*(09/18/2011 UA Bili) 10:30:00) [facility] CenterKvpmdmaLLCIZVUSUB6934-52-67 15:30:00 Test Item Value Reference Range Interpretation Comments UA Leuk Est (test Negative (09/18/2011 N code = UA Leuk Est) 10:30:00) [facility] CenterDzuwbnpGJLQZOCQRX8195-62-36 15:30:00 Test Item Value Reference Range Interpretation Comments UA Nitrite (test code Negative (09/18/2011 N = UA Nitrite) 10:30:00) [facility] CenterKrrbidjQUYIJLNUSD7736-79-97 15:30:00 Test Item Value Reference Range Interpretation Comments UA pH (test code = UA pH) 7.5 1 5.0-8.0 N [facility] CenterAnrpufxNWNPFQAZAE4653-91-17 15:30:00 Test Item Value Reference Range Interpretation Comments UA Spec Grav (test code = UA Spec 1.010 1 N Grav) [facility] CenterUxygpbbDRNIVJHFJY4100-68-65 15:30:00 Test Item Value Reference Range Interpretation Comments UA Turbidity (test code Slight Cloudy N = UA Turbidity) (09/18/2011 10:30:00) [facility] CenterTtpraauLDMIJQFUCE3139-11-01 15:30:00 Test Item Value Reference Range Interpretation Comments UA Color (test code = Yellow *NA*(09/18/2011 UA Color) 10:30:00) [facility] CenterGorsehuUXERFTLPM1007-40-38 14:07:00 Test Item Value Reference Range Interpretation Comments Phosphorus (test code = Phosphorus) 4.4 2.5-4.5 N [facility] CenterMyilyswQLSZBHAAG7447-95-50 14:07:00 Test Item Value Reference Range Interpretation Comments Magnesium Lvl (test code = Magnesium 1.6 1.8-2.4 L Lvl) [facility]SolkujpBZPQIKUWX1810-48-11 14:07:00 Test Item Value Reference Range Interpretation Comments Phosphorus (test code = Phosphorus) 4.4 2.5-4.5 N [facility] CenterMcczbdeXNDCRBDFW4090-02-88 14:07:00 Test Item Value Reference Range Interpretation Comments Magnesium Lvl (test code = Magnesium 1.6 1.8-2.4 L Lvl) [facility] CenterHejkzihPABHMGBCB4202-61-00 14:07:00 Test Item Value Reference Range Interpretation Comments Phosphorus (test code = Phosphorus) 4.4 2.5-4.5 N [facility] CenterIzpmbwbXDLQDPBOR6678-87-68 14:07:00 Test Item Value Reference Range Interpretation Comments Magnesium Lvl (test code = Magnesium 1.6 1.8-2.4 L Lvl) [facility] CenterLlpecpaUUMHQBYPS5322-19-38 14:07:00 Test Item Value Reference Range Interpretation Comments Phosphorus (test code = Phosphorus) 4.4 2.5-4.5 N [facility] CenterXjbgrgySCFLLLQJY3221-31-25 14:07:00 Test Item Value Reference Range Interpretation Comments Magnesium Lvl (test code = Magnesium 1.6 1.8-2.4 L Lvl) [facility] CenterQjvmwzwEBULCYTGS7396-47-83 14:07:00 Test Item Value Reference Range Interpretation Comments Phosphorus (test code = Phosphorus) 4.4 2.5-4.5 N [facility] CenterHajxpabYSXGKKJOC6499-51-53 14:07:00 Test Item Value Reference Range Interpretation Comments Magnesium Lvl (test code = Magnesium 1.6 1.8-2.4 L Lvl) [facility] GLUCOSE RQIHNIE8079-55-95 14:01:00 Test Item Value Reference Range Interpretation Comments Gluc POC Lifscn (test code = Gluc POC no gt 70-99 A Lifscn) [facility] GLUCOSE IBAIKGB3919-94-98 14:01:00 Test Item Value Reference Range Interpretation Comments Gluc POC Lifscn (test code = Gluc POC no gt 70-99 A Lifscn) [facility] GLUCOSE DWHMZWH8090-21-33 14:01:00 Test Item Value Reference Range Interpretation Comments Gluc POC Lifscn (test code = Gluc POC no gt 70-99 A Lifscn) [facility] GLUCOSE ZYTAEPR2557-07-52 14:01:00 Test Item Value Reference Range Interpretation Comments Gluc POC Lifscn (test code = Gluc POC no gt 70-99 A Lifscn) [facility] GLUCOSE JMVUKMW2138-73-82 14:01:00 Test Item Value Reference Range Interpretation Comments Gluc POC Lifscn (test code = Gluc POC no gt 70-99 A Lifscn) [facility] CenterJiszexvRXWOMFFRT5860-51-22 13:52:00 Test Item Value Reference Range Interpretation Comments pO2 Roberth (test code = pO2 Roberth) 24 20-49 N [facility] CenterFikmfksONHSHDQVR3084-65-46 13:52:00 Test Item Value Reference Range Interpretation Comments HCO3 Roberth (test code = HCO3 Roberth) 32.0 22.0-26.0 H [facility] CenterRwbfbimMKPBFXTJA1433-11-79 13:52:00 Test Item Value Reference Range Interpretation Comments pCO2 Roberth (test code = pCO2 Roberth) 44 38-52 N [facility] CenterOrrfdijNXPDWTBMT2617-38-12 13:52:00 Test Item Value Reference Range Interpretation Comments BE Roberth (test code = 7 See_Comment H [Automa rohit message] The BE Roberth) system which ge nerated this result transmit rohit reference range : <=2. The reference range was not used to interpr et this result as reji l/abnormal. [facility] CenterZpghvmlUXLDDFGEG9559-89-47 13:52:00 Test Item Value Reference Range Interpretation Comments O2 Sat Roberth (test code = O2 Sat Roberth) 48.0 40.0-70.0 N [facility] CenterVdsrjqbYQMHWBICC0345-67-82 13:52:00 Test Item Value Reference Range Interpretation Comments Temp Roberth (test code = Temp Roberth) 37.0 [facility] CenterQoywfghJBHXUMRGO9657-15-62 13:52:00 Test Item Value Reference Range Interpretation Comments pH Roberth (test code = pH Roberth) 7.47 7.28-7.42 H [facility] CenterTrvsmbgWNYRLVOZR0264-81-84 13:52:00 Test Item Value Reference Range Interpretation Comments Calcium Lvl (test code = Calcium Lvl) 10.1 8.5-10.5 N [facility] CenterJrdujaeFSJCZRJMF9355-49-90 13:52:00 Test Item Value Reference Range Interpretation Comments Chloride Lvl (test code = Chloride Lvl) 92 95-109 L [facility] CenterHwnasmeMUODNCRXQ9861-17-64 13:52:00 Test Item Value Reference Range Interpretation Comments CO2 (test code = CO2) 30 24-32 N [facility] CenterZpqqhkqKMNRUBWOW2250-28-92 13:52:00 Test Item Value Reference Range Interpretation Comments Potassium Lvl (test code = Potassium 3.5 3.5-5.1 N Lvl) [facility] CenterSgsvcxdBIBNMHROI4523-14-68 13:52:00 Test Item Value Reference Range Interpretation Comments Sodium Lvl (test code = Sodium Lvl) 133 135-145 L [facility] CenterCdidpuxSCERFFDLO3103-74-03 13:52:00 Test Item Value Reference Range Interpretation Comments Creatinine Lvl (test code = Creatinine 1.3 0.5-1.4 N Lvl) [facility] CenterTneqynxWPBPMJZJL1459-97-33 13:52:00 Test Item Value Reference Range Interpretation Comments Glucose Lvl (test code = Glucose Lvl) 383 70-99 H [facility] CenterMifnwqkFHFJTSSQI2617-29-06 13:52:00 Test Item Value Reference Range Interpretation Comments BUN (test code = BUN) 17 7-22 N [facility] CenterYdukyyjEVGUZKIYF1650-50-46 13:52:00 Test Item Value Reference Range Interpretation Comments AGAP (test code = AGAP) 14.5 10.0-20.0 N [facility] HospitalIohnprnFXRBSLCUMC2866-18-49 13:52:00 Test Item Value Reference Range Interpretation Comments MPV (test code = MPV) 12.0 7.4-10.4 H [facility] HospitalYiocyvrMMDUGSBMTF8010-95-09 13:52:00 Test Item Value Reference Range Interpretation Comments Platelet (test code = Platelet) 226 133-450 N [facility] HospitalPqhzssoAGXOTTFPCY7407-12-00 13:52:00 Test Item Value Reference Range Interpretation Comments MCHC (test code = MCHC) 33.7 32.0-36.0 N [facility] HospitalWnhpohkLFNRQYNTUB3280-22-26 13:52:00 Test Item Value Reference Range Interpretation Comments MCH (test code = MCH) 28.5 pg 27.0-31.0 N [facility] HospitalEhzazjyJMXGUSWBGJ4165-50-09 13:52:00 Test Item Value Reference Range Interpretation Comments RDW (test code = RDW) 15.1 11.5-14.5 H [facility] HospitalElmbqakFEFTRXJXVW8318-09-26 13:52:00 Test Item Value Reference Range Interpretation Comments MCV (test code = MCV) 84.6 81.0-99.0 N [facility] HospitalQndhkdgMBRBNKTUIO2612-99-48 13:52:00 Test Item Value Reference Range Interpretation Comments Hct (test code = Hct) 36.4 36.0-48.0 N [facility] HospitalCsjkoubSYDCQCUAMJ4217-89-32 13:52:00 Test Item Value Reference Range Interpretation Comments Hgb (test code = Hgb) 12.3 12.0-16.0 N [facility] HospitalDpthddjXFYJWWCOAR8832-44-92 13:52:00 Test Item Value Reference Range Interpretation Comments RBC (test code = RBC) 4.30 4.20-5.40 N [facility] HospitalVghnudeKAONQTOFQT7837-51-16 13:52:00 Test Item Value Reference Range Interpretation Comments WBC (test code = WBC) 11.7 3.7-10.4 H [facility] HospitalWwhwzvcLQFEMXUIYB9310-56-84 13:52:00 Test Item Value Reference Range Interpretation Comments Monocytes (test code = Monocytes) 2.9 2.0-12.0 N [facility] HospitalWfaxlngCVSABDIDXM1438-28-12 13:52:00 Test Item Value Reference Range Interpretation Comments Eosinophils (test code = 0.2 See_Comment N [A utomated message] The Eosinophils) system which ge nerated this result tra nsmitted reference range : <=4.0. The reference r leo was not used to int erpret this result as normal/abnormal . [facility] HospitalYzbsnrwHEBJCWYNNY7410-57-33 13:52:00 Test Item Value Reference Range Interpretation Comments Basophils (test code = 0.0 See_Comment N [Aut omated message] The Basophils) system which ge nerated this result tra nsmitted reference range : <=1.0. The reference r leo was not used to int erpret this result as normal/abnormal . [facility] HospitalNnpsjidKUMBRALSHF6804-96-22 13:52:00 Test Item Value Reference Range Interpretation Comments Eosinophils # (test code 0.0 See_Comment N [A utomated message] The = Eosinophils #) system whic h generated this result tra nsmitted reference range : <=0.5. The reference r leo was not used to int erpret this result as normal/abnormal . [facility] HospitalUcgusghDNNLMCWQZG0380-29-38 13:52:00 Test Item Value Reference Range Interpretation Comments Monocytes # (test code 0.3 See_Comment N [Aut omated message] The = Monocytes #) system which generated this result tra nsmitted reference range : <=0.8. The reference r leo was not used to int erpret this result as normal/abnormal . [facility] HospitalRckclqbSRLJWIELLN8956-26-55 13:52:00 Test Item Value Reference Range Interpretation Comments Segs (test code = Segs) 92.0 45.0-75.0 H [facility] HospitalUrupxqkFAXEUPXZOU8910-83-49 13:52:00 Test Item Value Reference Range Interpretation Comments Lymphocytes (test code = Lymphocytes) 4.9 20.0-40.0 L [facility] HospitalKehdfuxXPUYNORGSP6313-30-28 13:52:00 Test Item Value Reference Range Interpretation Comments Spherocyte (test code = Rare A Spherocyte) *ABN*(09/18/2011 08:52:00) [facility] HospitalZkwvkcsBMJGSFCQKL1753-37-80 13:52:00 Test Item Value Reference Range Interpretation Comments Large Plt (test code = Slight *ABN*(09/18/2011 A Large Plt) 08:52:00) [facility] HospitalKfyhsvmXCWNASOUCK8940-44-72 13:52:00 Test Item Value Reference Range Interpretation Comments Microcyte (test code = 1+ *ABN*(09/18/2011 A Microcyte) 08:52:00) [facility] HospitalPldqkpzDEZOKIROTJ3893-57-17 13:52:00 Test Item Value Reference Range Interpretation Comments Schistocyte (test code = Schistocyte) Rare [facility] HospitalGdjemwxNGXSZIRQYN3808-18-19 13:52:00 Test Item Value Reference Range Interpretation Comments Macrocyte (test code = 1+ *ABN*(09/18/2011 A Macrocyte) 08:52:00) [facility] HospitalJltfbvjDGUGOYOFNY4220-30-31 13:52:00 Test Item Value Reference Range Interpretation Comments Lymphocytes # (test code = Lymphocytes 0.6 1.0-5.5 L #) [facility] HospitalJkyaoabOESMCPZEUR3954-31-78 13:52:00 Test Item Value Reference Range Interpretation Comments Segs-Bands # (test code = Segs-Bands #) 10.8 1.5-8.1 H [facility] HospitalGupwzsfZOEHRCGTTX5421-55-71 13:52:00 Test Item Value Reference Range Interpretation Comments Basophils # (test code 0.0 See_Comment N [Aut omated message] The = Basophils #) system which generated this result tra nsmitted reference range : <=0.2. The reference r leo was not used to int erpret this result as normal/abnormal . [facility] HospitalYufvgjsEVWHTIFHMV4108-77-00 13:52:00 Test Item Value Reference Range Interpretation Comments Anisocyte (test code = 1+ *ABN*(09/18/2011 A Anisocyte) 08:52:00) [facility] CenterFysknggLHIMAGUXGB8159-67-20 13:52:00 Test Item Value Reference Range Interpretation Comments CDC-HIV 1/2 Ab (test Negative *NA*(09/18/2011 code = CDC-HIV 1/2 08:52:00) Ab) [facility] CenterPcwhrlxJYEOMGVKF7135-37-68 13:52:00 Test Item Value Reference Range Interpretation Comments pO2 Roberth (test code = pO2 Roberth) 24 20-49 N [facility] CenterXcorxylRBICFOSZR4704-98-89 13:52:00 Test Item Value Reference Range Interpretation Comments HCO3 Roberth (test code = HCO3 Roberth) 32.0 22.0-26.0 H [facility] CenterWboeyewPNOGLLETA7324-69-74 13:52:00 Test Item Value Reference Range Interpretation Comments pCO2 Roberth (test code = pCO2 Roberth) 44 38-52 N [facility] CenterOzyonauRANQEJENN6803-92-95 13:52:00 Test Item Value Reference Range Interpretation Comments BE Roberth (test code = 7 See_Comment H [Automa rohit message] The BE Roberth) system which ge nerated this result transmit rohit reference range : <=2. The reference range was not used to interpr et this result as reji l/abnormal. [facility] CenterGzdkdwsZPOLLYKDX8919-62-08 13:52:00 Test Item Value Reference Range Interpretation Comments O2 Sat Roberth (test code = O2 Sat Roberth) 48.0 40.0-70.0 N [facility] CenterYrpofpwOWZKPMZEK6022-61-08 13:52:00 Test Item Value Reference Range Interpretation Comments Temp Roberth (test code = Temp Roberth) 37.0 [facility] CenterTpyzvrvLDQLSLQJD2087-95-01 13:52:00 Test Item Value Reference Range Interpretation Comments pH Roberth (test code = pH Roberth) 7.47 7.28-7.42 H [facility] CenterDpqzvfjTHPOYGLQC5798-07-74 13:52:00 Test Item Value Reference Range Interpretation Comments Calcium Lvl (test code = Calcium Lvl) 10.1 8.5-10.5 N [facility] CenterRhcmdacXCOCLXTRN4983-82-47 13:52:00 Test Item Value Reference Range Interpretation Comments Chloride Lvl (test code = Chloride Lvl) 92 95-109 L [facility] CenterGmzsmsjIUORRQDZB8096-03-77 13:52:00 Test Item Value Reference Range Interpretation Comments CO2 (test code = CO2) 30 24-32 N [facility] CenterCmiryuuJQLAZTAPE0352-33-44 13:52:00 Test Item Value Reference Range Interpretation Comments Potassium Lvl (test code = Potassium 3.5 3.5-5.1 N Lvl) [facility] CenterEiffyzxRQQSLLXQI7214-70-97 13:52:00 Test Item Value Reference Range Interpretation Comments Sodium Lvl (test code = Sodium Lvl) 133 135-145 L [facility] CenterPcaojhxDYXDNNINP7928-66-32 13:52:00 Test Item Value Reference Range Interpretation Comments Creatinine Lvl (test code = Creatinine 1.3 0.5-1.4 N Lvl) [facility] CenterZdioqoiJMXZDWPPW8713-93-67 13:52:00 Test Item Value Reference Range Interpretation Comments Glucose Lvl (test code = Glucose Lvl) 383 70-99 H [facility] CenterWdxyxpiFFGTPVVKR0556-11-49 13:52:00 Test Item Value Reference Range Interpretation Comments BUN (test code = BUN) 17 7-22 N [facility] CenterOpzuaylVPKFUHETC7599-59-03 13:52:00 Test Item Value Reference Range Interpretation Comments AGAP (test code = AGAP) 14.5 10.0-20.0 N [facility] HospitalRqidmejIIRNUXXDDK4429-44-07 13:52:00 Test Item Value Reference Range Interpretation Comments MPV (test code = MPV) 12.0 7.4-10.4 H [facility] HospitalLvahrguHBRCQCVVMG3483-84-96 13:52:00 Test Item Value Reference Range Interpretation Comments Platelet (test code = Platelet) 226 133-450 N [facility] HospitalExsqwrbBODOHJURIR5895-35-01 13:52:00 Test Item Value Reference Range Interpretation Comments MCHC (test code = MCHC) 33.7 32.0-36.0 N [facility] HospitalXokppbwLQUZLUWJJL0547-82-50 13:52:00 Test Item Value Reference Range Interpretation Comments MCH (test code = MCH) 28.5 pg 27.0-31.0 N [facility] HospitalItpkqroJAVYOLTLJZ3044-42-75 13:52:00 Test Item Value Reference Range Interpretation Comments RDW (test code = RDW) 15.1 11.5-14.5 H [facility] HospitalWbijmulWAEITKNXJO4560-66-75 13:52:00 Test Item Value Reference Range Interpretation Comments MCV (test code = MCV) 84.6 81.0-99.0 N [facility] HospitalBzkohfuTGERMVJIXQ0838-48-90 13:52:00 Test Item Value Reference Range Interpretation Comments Hct (test code = Hct) 36.4 36.0-48.0 N [facility] HospitalCccfbjwTXSSVMQBSB0180-11-95 13:52:00 Test Item Value Reference Range Interpretation Comments Hgb (test code = Hgb) 12.3 12.0-16.0 N [facility] HospitalXesgifvHEWDDSXYOM5154-95-22 13:52:00 Test Item Value Reference Range Interpretation Comments RBC (test code = RBC) 4.30 4.20-5.40 N [facility] HospitalLkbcdabJHQOOAEUXJ0874-67-20 13:52:00 Test Item Value Reference Range Interpretation Comments WBC (test code = WBC) 11.7 3.7-10.4 H [facility] HospitalBmyufrlHYFSRJAIGC1017-55-23 13:52:00 Test Item Value Reference Range Interpretation Comments Monocytes (test code = Monocytes) 2.9 2.0-12.0 N [facility] HospitalUmvmbuwIAQUMBCESL8108-84-23 13:52:00 Test Item Value Reference Range Interpretation Comments Eosinophils (test code = 0.2 See_Comment N [A utomated message] The Eosinophils) system which ge nerated this result tra nsmitted reference range : <=4.0. The reference r leo was not used to int erpret this result as normal/abnormal . [facility] HospitalGcakfilOYPGMVHOGZ6346-85-88 13:52:00 Test Item Value Reference Range Interpretation Comments Basophils (test code = 0.0 See_Comment N [Aut omated message] The Basophils) system which ge nerated this result tra nsmitted reference range : <=1.0. The reference r leo was not used to int erpret this result as normal/abnormal . [facility] HospitalBlqjpajRMWUZAAYQL3567-90-33 13:52:00 Test Item Value Reference Range Interpretation Comments Eosinophils # (test code 0.0 See_Comment N [A utomated message] The = Eosinophils #) system whic h generated this result tra nsmitted reference range : <=0.5. The reference r leo was not used to int erpret this result as normal/abnormal . [facility] HospitalUfgwoqiTNLHQTYJFM9912-68-25 13:52:00 Test Item Value Reference Range Interpretation Comments Monocytes # (test code 0.3 See_Comment N [Aut omated message] The = Monocytes #) system which generated this result tra nsmitted reference range : <=0.8. The reference r leo was not used to int erpret this result as normal/abnormal . [facility] HospitalBrgbrpjJPSXHIVSCD2214-47-26 13:52:00 Test Item Value Reference Range Interpretation Comments Segs (test code = Segs) 92.0 45.0-75.0 H [facility] HospitalSghnrbuQJLHFTLTIY9664-51-16 13:52:00 Test Item Value Reference Range Interpretation Comments Lymphocytes (test code = Lymphocytes) 4.9 20.0-40.0 L [facility] HospitalMphqrlqAXLNKJXUTG9949-27-78 13:52:00 Test Item Value Reference Range Interpretation Comments Spherocyte (test code = Rare A Spherocyte) *ABN*(09/18/2011 08:52:00) [facility] HospitalVimhpdlNDLDIWCUXU9901-88-90 13:52:00 Test Item Value Reference Range Interpretation Comments Large Plt (test code = Slight *ABN*(09/18/2011 A Large Plt) 08:52:00) [facility] HospitalYauwdioLWVRRQVCKM0664-52-42 13:52:00 Test Item Value Reference Range Interpretation Comments Microcyte (test code = 1+ *ABN*(09/18/2011 A Microcyte) 08:52:00) [facility] HospitalTcqylrjIQFHMBRISB0269-86-69 13:52:00 Test Item Value Reference Range Interpretation Comments Schistocyte (test code = Schistocyte) Rare [facility] HospitalKiiouikVLLVIMKQBJ3176-95-85 13:52:00 Test Item Value Reference Range Interpretation Comments Macrocyte (test code = 1+ *ABN*(09/18/2011 A Macrocyte) 08:52:00) [facility] HospitalTgbamoiKAXAUJVJPG3967-65-53 13:52:00 Test Item Value Reference Range Interpretation Comments Lymphocytes # (test code = Lymphocytes 0.6 1.0-5.5 L #) [facility] HospitalTyvjfheJONPBRGHUN6381-73-92 13:52:00 Test Item Value Reference Range Interpretation Comments Segs-Bands # (test code = Segs-Bands #) 10.8 1.5-8.1 H [facility] HospitalRosuqsbMWDRCPLASG0077-33-27 13:52:00 Test Item Value Reference Range Interpretation Comments Basophils # (test code 0.0 See_Comment N [Aut omated message] The = Basophils #) system which generated this result tra nsmitted reference range : <=0.2. The reference r leo was not used to int erpret this result as normal/abnormal . [facility] HospitalJqzhtofFHJLOHXCRX9778-25-12 13:52:00 Test Item Value Reference Range Interpretation Comments Anisocyte (test code = 1+ *ABN*(09/18/2011 A Anisocyte) 08:52:00) [facility] CenterPcgpnuhXLPPZUIHZD2540-43-73 13:52:00 Test Item Value Reference Range Interpretation Comments CDC-HIV 1/2 Ab (test Negative *NA*(09/18/2011 code = CDC-HIV 1/2 08:52:00) Ab) [facility] CenterYismbusRCJYOZMNB3415-02-27 13:52:00 Test Item Value Reference Range Interpretation Comments pO2 Roberth (test code = pO2 Roberth) 24 20-49 N [facility] CenterUbfjhwiZMVJICFCL1235-87-11 13:52:00 Test Item Value Reference Range Interpretation Comments HCO3 Roberth (test code = HCO3 Roberth) 32.0 22.0-26.0 H [facility] CenterHxeufwoWDFDXNMRB3952-54-19 13:52:00 Test Item Value Reference Range Interpretation Comments pCO2 Roberth (test code = pCO2 Roberth) 44 38-52 N [facility] CenterPhdfmstXEOKRXCXV2517-44-86 13:52:00 Test Item Value Reference Range Interpretation Comments BE Roberth (test code = 7 See_Comment H [Automa rohit message] The BE Roberth) system which ge nerated this result transmit rohit reference range : <=2. The reference range was not used to interpr et this result as reji l/abnormal. [facility] CenterAwmmnksWBFDHQUSD7823-48-13 13:52:00 Test Item Value Reference Range Interpretation Comments O2 Sat Roberth (test code = O2 Sat Roberth) 48.0 40.0-70.0 N [facility] CenterXafxjzrYVBGSPFMO2669-76-95 13:52:00 Test Item Value Reference Range Interpretation Comments Temp Roberth (test code = Temp Roberth) 37.0 [facility] CenterMrbdmbbBMYAHVMIL9973-33-41 13:52:00 Test Item Value Reference Range Interpretation Comments pH Roberth (test code = pH Roberth) 7.47 7.28-7.42 H [facility] CenterXcouqhrODMSJCZTZ4262-36-47 13:52:00 Test Item Value Reference Range Interpretation Comments Calcium Lvl (test code = Calcium Lvl) 10.1 8.5-10.5 N [facility] CenterPkdfxprKQHCEZQOC8945-09-39 13:52:00 Test Item Value Reference Range Interpretation Comments Chloride Lvl (test code = Chloride Lvl) 92 95-109 L [facility] CenterEefcrnyWLSHOFFNH8390-71-65 13:52:00 Test Item Value Reference Range Interpretation Comments CO2 (test code = CO2) 30 24-32 N [facility] CenterAjcaohbMVOAURQSU7316-22-53 13:52:00 Test Item Value Reference Range Interpretation Comments Potassium Lvl (test code = Potassium 3.5 3.5-5.1 N Lvl) [facility] CenterFrlphitFZOQKASEM7573-69-36 13:52:00 Test Item Value Reference Range Interpretation Comments Sodium Lvl (test code = Sodium Lvl) 133 135-145 L [facility] CenterVzerohbELLVGUPML8271-22-54 13:52:00 Test Item Value Reference Range Interpretation Comments Creatinine Lvl (test code = Creatinine 1.3 0.5-1.4 N Lvl) [facility] CenterXapxiwnHDVREEZIG1467-23-46 13:52:00 Test Item Value Reference Range Interpretation Comments Glucose Lvl (test code = Glucose Lvl) 383 70-99 H [facility] CenterBlnnklrIMIJTVMYP8476-82-66 13:52:00 Test Item Value Reference Range Interpretation Comments BUN (test code = BUN) 17 7-22 N [facility] CenterKckqnyuTSNLJUFCF4599-94-19 13:52:00 Test Item Value Reference Range Interpretation Comments AGAP (test code = AGAP) 14.5 10.0-20.0 N [facility] HospitalKusicxcNZVXQMVNED7924-78-93 13:52:00 Test Item Value Reference Range Interpretation Comments MPV (test code = MPV) 12.0 7.4-10.4 H [facility] HospitalPuuagebMVWCLFQVAU1236-93-87 13:52:00 Test Item Value Reference Range Interpretation Comments Platelet (test code = Platelet) 226 133-450 N [facility] HospitalIztkkzqAXAMZCPRRZ9563-82-37 13:52:00 Test Item Value Reference Range Interpretation Comments MCHC (test code = MCHC) 33.7 32.0-36.0 N [facility] HospitalJsstgsuMPRDAIZBYS7435-62-86 13:52:00 Test Item Value Reference Range Interpretation Comments MCH (test code = MCH) 28.5 pg 27.0-31.0 N [facility] HospitalUrrqbthAARVJGFVWB4808-84-81 13:52:00 Test Item Value Reference Range Interpretation Comments RDW (test code = RDW) 15.1 11.5-14.5 H [facility] HospitalGdytakfUFVFSFNRFG7401-58-13 13:52:00 Test Item Value Reference Range Interpretation Comments MCV (test code = MCV) 84.6 81.0-99.0 N [facility] HospitalUffnfjtBGIEOKMLZZ4180-75-84 13:52:00 Test Item Value Reference Range Interpretation Comments Hct (test code = Hct) 36.4 36.0-48.0 N [facility] HospitalKmqeojxAFGFHZVXNZ9810-56-33 13:52:00 Test Item Value Reference Range Interpretation Comments Hgb (test code = Hgb) 12.3 12.0-16.0 N [facility] HospitalQadhnatIOOQGJZBDP0567-49-51 13:52:00 Test Item Value Reference Range Interpretation Comments RBC (test code = RBC) 4.30 4.20-5.40 N [facility] HospitalJrhyhzyRZIUVLXSMV5518-66-02 13:52:00 Test Item Value Reference Range Interpretation Comments WBC (test code = WBC) 11.7 3.7-10.4 [facility] HospitalTatzsrlXLPDRKBUWM3112-91-29 13:52:00 Test Item Value Reference Range Interpretation Comments Monocytes (test code = Monocytes) 2.9 2.0-12.0 N [facility]OpnyfssLFIIIWSERP3140-94-15 13:52:00 Test Item Value Reference Range Interpretation Comments Eosinophils (test code = 0.2 See_Comment N [A utomated message] The Eosinophils) system which ge nerated this result tra nsmitted reference range : <=4.0. The reference r leo was not used to int erpret this result as normal/abnormal . [facility] HospitalOapmfohJOHZYIUKEP3712-84-90 13:52:00 Test Item Value Reference Range Interpretation Comments Basophils (test code = 0.0 See_Comment N [Aut omated message] The Basophils) system which ge nerated this result tra nsmitted reference range : <=1.0. The reference r leo was not used to int erpret this result as normal/abnormal . [facility] HospitalDgdytqbRPQXNPGZVA3739-45-54 13:52:00 Test Item Value Reference Range Interpretation Comments Eosinophils # (test code 0.0 See_Comment N [A utomated message] The = Eosinophils #) system [facility] h generated this result tra nsmitted reference range : <=0.5. The reference r leo was not used to int erpret this result as normal/abnormal . [facility] HospitalUgnvsqsHCJFLNRDPW0288-60-92 13:52:00 Test Item Value Reference Range Interpretation Comments Monocytes # (test code 0.3 See_Comment N [Aut omated message] The = Monocytes #) system which generated this result tra nsmitted reference range : <=0.8. The reference r leo was not used to int erpret this result as normal/abnormal . [facility] HospitalWizwazbCPCLWNEQTF6784-46-47 13:52:00 Test Item Value Reference Range Interpretation Comments Segs (test code = Segs) 92.0 45.0-75.0 H [facility] HospitalTatmkdxERLUEVUFTJ1739-41-03 13:52:00 Test Item Value Reference Range Interpretation Comments Lymphocytes (test code = Lymphocytes) 4.9 20.0-40.0 L [facility] HospitalWdtxwppMJNJEKXZKS8674-48-49 13:52:00 Test Item Value Reference Range Interpretation Comments Spherocyte (test code = Rare A Spherocyte) *ABN*(09/18/2011 08:52:00) [facility] HospitalYqhbylfCUSFDWEHIA0435-52-19 13:52:00 Test Item Value Reference Range Interpretation Comments Large Plt (test code = Slight *ABN*(09/18/2011 A Large Plt) 08:52:00) [facility] HospitalJkuflivRJDSBQSVYO2713-40-22 13:52:00 Test Item Value Reference Range Interpretation Comments Microcyte (test code = 1+ *ABN*(09/18/2011 A Microcyte) 08:52:00) [facility] HospitalCpihqrqODOUVHPFQM0443-05-38 13:52:00 Test Item Value Reference Range Interpretation Comments Schistocyte (test code = Schistocyte) Rare [facility] HospitalAtpoydqIIWSZURHUN3954-69-38 13:52:00 Test Item Value Reference Range Interpretation Comments Macrocyte (test code = 1+ *ABN*(09/18/2011 A Macrocyte) 08:52:00) [facility] HospitalUyzrjdsDXYNKUTHDK9939-21-60 13:52:00 Test Item Value Reference Range Interpretation Comments Lymphocytes # (test code = Lymphocytes 0.6 1.0-5.5 L #) [facility] HospitalHjcremsTNCGDDFSNQ6316-50-68 13:52:00 Test Item Value Reference Range Interpretation Comments Segs-Bands # (test code = Segs-Bands #) 10.8 1.5-8.1 H [facility] HospitalIsjjajuVGGAVMLVRC8994-97-42 13:52:00 Test Item Value Reference Range Interpretation Comments Basophils # (test code 0.0 See_Comment N [Aut omated message] The = Basophils #) system which generated this result tra nsmitted reference range : <=0.2. The reference r leo was not used to int erpret this result as normal/abnormal . [facility] HospitalJomuzxzAXMUWDTEXL3775-76-23 13:52:00 Test Item Value Reference Range Interpretation Comments Anisocyte (test code = 1+ *ABN*(09/18/2011 A Anisocyte) 08:52:00) [facility] CenterAdxgpolXBJPHISTFU6510-18-65 13:52:00 Test Item Value Reference Range Interpretation Comments CDC-HIV 1/2 Ab (test Negative *NA*(09/18/2011 code = CDC-HIV 1/2 08:52:00) Ab) [facility] CenterOdasmpvJMNEPOIXZ6035-62-52 13:52:00 Test Item Value Reference Range Interpretation Comments pO2 Roberth (test code = pO2 Roberth) 24 20-49 N [facility] CenterVvjoopoOELOVIFDL8675-21-92 13:52:00 Test Item Value Reference Range Interpretation Comments HCO3 Roberth (test code = HCO3 Roberth) 32.0 22.0-26.0 H [facility] CenterNdaqpebLDPEZKZFG0729-84-70 13:52:00 Test Item Value Reference Range Interpretation Comments pCO2 Roberth (test code = pCO2 Roberth) 44 38-52 N [facility] CenterOmkmlpxJGCTKDFYU7427-29-19 13:52:00 Test Item Value Reference Range Interpretation Comments BE Roberth (test code = 7 See_Comment H [Automa rohit message] The BE Roberth) system which ge nerated this result transmit rohit reference range : <=2. The reference range was not used to interpr et this result as reji l/abnormal. [facility] CenterSutjgikYFVLCCYPL7109-04-85 13:52:00 Test Item Value Reference Range Interpretation Comments O2 Sat Roberth (test code = O2 Sat Roberth) 48.0 40.0-70.0 N [facility] CenterQmxyfndIWMKFETFP0002-77-90 13:52:00 Test Item Value Reference Range Interpretation Comments Temp Roberth (test code = Temp Roberth) 37.0 [facility] CenterKfxwrjhHWTAQUMSE2648-24-56 13:52:00 Test Item Value Reference Range Interpretation Comments pH Roberth (test code = pH Roberth) 7.47 7.28-7.42 H [facility] CenterBgfpptpCGIKCXNPC9575-68-16 13:52:00 Test Item Value Reference Range Interpretation Comments Calcium Lvl (test code = Calcium Lvl) 10.1 8.5-10.5 N [facility] CenterJmvbdkgSAZINKDDF5996-70-61 13:52:00 Test Item Value Reference Range Interpretation Comments Chloride Lvl (test code = Chloride Lvl) 92 95-109 L [facility] CenterWnsnxjgMHMYVJEUH9025-25-88 13:52:00 Test Item Value Reference Range Interpretation Comments CO2 (test code = CO2) 30 24-32 N [facility] CenterXjlmzbmONHHWWQGC1466-47-43 13:52:00 Test Item Value Reference Range Interpretation Comments Potassium Lvl (test code = Potassium 3.5 3.5-5.1 N Lvl) [facility] CenterNmppdvuRGEZWGMAQ9015-07-54 13:52:00 Test Item Value Reference Range Interpretation Comments Sodium Lvl (test code = Sodium Lvl) 133 135-145 L [facility] CenterKibogboNDTVOHEKE0146-47-39 13:52:00 Test Item Value Reference Range Interpretation Comments Creatinine Lvl (test code = Creatinine 1.3 0.5-1.4 N Lvl) [facility] CenterBowphrlHXYLSJCBZ7308-77-77 13:52:00 Test Item Value Reference Range Interpretation Comments Glucose Lvl (test code = Glucose Lvl) 383 70-99 H [facility] CenterAqebdpgJPPGRYFFH8960-25-70 13:52:00 Test Item Value Reference Range Interpretation Comments BUN (test code = BUN) 17 7-22 N [facility] CenterPfmicoyXJEEQREPT8397-30-18 13:52:00 Test Item Value Reference Range Interpretation Comments AGAP (test code = AGAP) 14.5 10.0-20.0 N [facility] HospitalVfiqrpsBJHAUZRVDS1967-65-06 13:52:00 Test Item Value Reference Range Interpretation Comments MPV (test code = MPV) 12.0 7.4-10.4 H [facility] HospitalPxetxotPSNVDALLHY8082-72-68 13:52:00 Test Item Value Reference Range Interpretation Comments Platelet (test code = Platelet) 226 133-450 N [facility] HospitalYjfdixpYWENLWFWCP5598-40-17 13:52:00 Test Item Value Reference Range Interpretation Comments MCHC (test code = MCHC) 33.7 32.0-36.0 N [facility] HospitalOiwcomvWKGXEKENHO5623-39-41 13:52:00 Test Item Value Reference Range Interpretation Comments MCH (test code = MCH) 28.5 pg 27.0-31.0 N [facility] HospitalYksbhfiIVZYOJZJGR5622-99-56 13:52:00 Test Item Value Reference Range Interpretation Comments RDW (test code = RDW) 15.1 11.5-14.5 H [facility] HospitalMfmucprWCDTJMAOLS4386-69-29 13:52:00 Test Item Value Reference Range Interpretation Comments MCV (test code = MCV) 84.6 81.0-99.0 N [facility] HospitalUhzqdztCZVBXCMWLA6009-12-46 13:52:00 Test Item Value Reference Range Interpretation Comments Hct (test code = Hct) 36.4 36.0-48.0 N [facility] HospitalRuvlbffCYNQDKAMDG8902-83-51 13:52:00 Test Item Value Reference Range Interpretation Comments Hgb (test code = Hgb) 12.3 12.0-16.0 N [facility] HospitalLtnmocwVBGWZBIWDR9797-31-46 13:52:00 Test Item Value Reference Range Interpretation Comments RBC (test code = RBC) 4.30 4.20-5.40 N [facility] HospitalEiszspvXOXDKJJIUW1072-20-93 13:52:00 Test Item Value Reference Range Interpretation Comments WBC (test code = WBC) 11.7 3.7-10.4 H [facility] HospitalBxtguywUWIGZNVWIM6942-50-82 13:52:00 Test Item Value Reference Range Interpretation Comments Monocytes (test code = Monocytes) 2.9 2.0-12.0 N [facility] HospitalSuvbdosNQGBTBZKUT3171-12-66 13:52:00 Test Item Value Reference Range Interpretation Comments Eosinophils (test code = 0.2 See_Comment N [A utomated message] The Eosinophils) system which ge nerated this result tra nsmitted reference range : <=4.0. The reference r leo was not used to int erpret this result as normal/abnormal . [facility] HospitalBebuueyVISEBVYPJG6573-17-46 13:52:00 Test Item Value Reference Range Interpretation Comments Basophils (test code = 0.0 See_Comment N [Aut omated message] The Basophils) system which ge nerated this result tra nsmitted reference range : <=1.0. The reference r leo was not used to int erpret this result as normal/abnormal . [facility] HospitalHzbwvgiMNAZYWBFMJ8625-76-90 13:52:00 Test Item Value Reference Range Interpretation Comments Eosinophils # (test code 0.0 See_Comment N [A utomated message] The = Eosinophils #) system whic h generated this result tra nsmitted reference range : <=0.5. The reference r leo was not used to int erpret this result as normal/abnormal . [facility] HospitalEakqyfvCVLPTESNLL1436-84-35 13:52:00 Test Item Value Reference Range Interpretation Comments Monocytes # (test code 0.3 See_Comment N [Aut omated message] The = Monocytes #) system which generated this result tra nsmitted reference range : <=0.8. The reference r leo was not used to int erpret this result as normal/abnormal . [facility] HospitalWfzsselPMAWDXQUQF7258-80-16 13:52:00 Test Item Value Reference Range Interpretation Comments Segs (test code = Segs) 92.0 45.0-75.0 H [facility] HospitalVgewanbKZLUOYUECV7424-25-09 13:52:00 Test Item Value Reference Range Interpretation Comments Lymphocytes (test code = Lymphocytes) 4.9 20.0-40.0 L [facility] HospitalJffjzfrSMNYGKNLPT5273-70-00 13:52:00 Test Item Value Reference Range Interpretation Comments Spherocyte (test code = Rare A Spherocyte) *ABN*(09/18/2011 08:52:00) [facility] HospitalAagsctsDTWJSQXUPU7585-77-67 13:52:00 Test Item Value Reference Range Interpretation Comments Large Plt (test code = Slight *ABN*(09/18/2011 A Large Plt) 08:52:00) [facility] HospitalJapxqmtXUKFZGHBBD7668-54-78 13:52:00 Test Item Value Reference Range Interpretation Comments Microcyte (test code = 1+ *ABN*(09/18/2011 A Microcyte) 08:52:00) [facility] HospitalAzekghzUFIELYRQMR6310-31-02 13:52:00 Test Item Value Reference Range Interpretation Comments Schistocyte (test code = Schistocyte) Rare [facility] HospitalTlghpimSAEEQODVVY7536-41-48 13:52:00 Test Item Value Reference Range Interpretation Comments Macrocyte (test code = 1+ *ABN*(09/18/2011 A Macrocyte) 08:52:00) [facility] HospitalShgelxmKWNXQYUJLR7932-51-19 13:52:00 Test Item Value Reference Range Interpretation Comments Lymphocytes # (test code = Lymphocytes 0.6 1.0-5.5 L #) [facility] HospitalJmyyoqrCDXJURYAVU4147-21-70 13:52:00 Test Item Value Reference Range Interpretation Comments Segs-Bands # (test code = Segs-Bands #) 10.8 1.5-8.1 H [facility] HospitalRwolmaqSAGGRXWDLC1318-08-43 13:52:00 Test Item Value Reference Range Interpretation Comments Basophils # (test code 0.0 See_Comment N [Aut omated message] The = Basophils #) system which generated this result tra nsmitted reference range : <=0.2. The reference r leo was not used to int erpret this result as normal/abnormal . [facility] HospitalVjagezfQFXEKVAZRD2346-40-39 13:52:00 Test Item Value Reference Range Interpretation Comments Anisocyte (test code = 1+ *ABN*(09/18/2011 A Anisocyte) 08:52:00) [facility] HospitalFbrmlchBGAACHUHLJ8032-95-55 13:52:00 Test Item Value Reference Range Interpretation Comments CDC-HIV 1/2 Ab (test Negative *NA*(09/18/2011 code = CDC-HIV 1/2 08:52:00) Ab) [facility] CenterOiliqmyRGFAZXGKO3167-06-14 13:52:00 Test Item Value Reference Range Interpretation Comments pO2 Roberth (test code = pO2 Roberth) 24 20-49 N [facility] CenterNmzwedbWJSRBAUTS6107-76-83 13:52:00 Test Item Value Reference Range Interpretation Comments HCO3 Roberth (test code = HCO3 Roberth) 32.0 22.0-26.0 H [facility] CenterViuxgipJFXIGYXXM0938-53-95 13:52:00 Test Item Value Reference Range Interpretation Comments pCO2 Roberth (test code = pCO2 Roberth) 44 38-52 N [facility] CenterBicqsduXJVUPHCHU8853-21-80 13:52:00 Test Item Value Reference Range Interpretation Comments BE Roberth (test code = 7 See_Comment H [Automa rohit message] The BE Roberth) system which ge nerated this result transmit rohit reference range : <=2. The reference range was not used to interpr et this result as reji l/abnormal. [facility] CenterUbsesyoFXQQVXFWJ1407-38-38 13:52:00 Test Item Value Reference Range Interpretation Comments O2 Sat Roberth (test code = O2 Sat Roberth) 48.0 40.0-70.0 N [facility] CenterCqdazwoTAGWFXCWK2868-29-30 13:52:00 Test Item Value Reference Range Interpretation Comments Temp Roberth (test code = Temp Roberth) 37.0 [facility] CenterFrcyzqiZUAUKIZAV9046-55-96 13:52:00 Test Item Value Reference Range Interpretation Comments pH Roberth (test code = pH Roberth) 7.47 7.28-7.42 H [facility] CenterBxqnwyfSHKFJNRIE1206-53-14 13:52:00 Test Item Value Reference Range Interpretation Comments Calcium Lvl (test code = Calcium Lvl) 10.1 8.5-10.5 N [facility] CenterHpjqzkoMKQIVVGHP5021-30-38 13:52:00 Test Item Value Reference Range Interpretation Comments Chloride Lvl (test code = Chloride Lvl) 92 95-109 L [facility] CenterJceaydbEPUOEBHIP2688-94-71 13:52:00 Test Item Value Reference Range Interpretation Comments CO2 (test code = CO2) 30 24-32 N [facility] CenterMqaqfmuGNKMFWASP9457-98-83 13:52:00 Test Item Value Reference Range Interpretation Comments Potassium Lvl (test code = Potassium 3.5 3.5-5.1 N Lvl) [facility] CenterMsunfjrFYZBLUKYB4126-61-36 13:52:00 Test Item Value Reference Range Interpretation Comments Sodium Lvl (test code = Sodium Lvl) 133 135-145 L [facility] CenterCtiqswmAPZCGUDGM5814-71-95 13:52:00 Test Item Value Reference Range Interpretation Comments Creatinine Lvl (test code = Creatinine 1.3 0.5-1.4 N Lvl) [facility] CenterCjrlunlUXQRIZNKW1054-60-31 13:52:00 Test Item Value Reference Range Interpretation Comments Glucose Lvl (test code = Glucose Lvl) 383 70-99 H [facility] CenterGfyynzsPOGNEOVNY1821-88-70 13:52:00 Test Item Value Reference Range Interpretation Comments BUN (test code = BUN) 17 7-22 N [facility] CenterUpjpyvpVSHXVFBJY9691-05-21 13:52:00 Test Item Value Reference Range Interpretation Comments AGAP (test code = AGAP) 14.5 10.0-20.0 N [facility] HospitalNqlemnnLLAEFJUYQP1509-13-27 13:52:00 Test Item Value Reference Range Interpretation Comments MPV (test code = MPV) 12.0 7.4-10.4 H [facility] HospitalYzrermrVSIVTFLHLJ8550-14-23 13:52:00 Test Item Value Reference Range Interpretation Comments Platelet (test code = Platelet) 226 133-450 N [facility] HospitalVrpgxadBYBZJWFEEC3262-04-16 13:52:00 Test Item Value Reference Range Interpretation Comments MCHC (test code = MCHC) 33.7 32.0-36.0 N [facility] HospitalDubronxICVPHVBSTJ9259-84-16 13:52:00 Test Item Value Reference Range Interpretation Comments MCH (test code = MCH) 28.5 pg 27.0-31.0 N [facility] HospitalKjshpqwDNPSLYLRDE7097-29-86 13:52:00 Test Item Value Reference Range Interpretation Comments RDW (test code = RDW) 15.1 11.5-14.5 H [facility] HospitalRwkdzwbESZUFHQIBK3259-26-61 13:52:00 Test Item Value Reference Range Interpretation Comments MCV (test code = MCV) 84.6 81.0-99.0 N [facility] HospitalFjyxxrrIMVOUECEZL8165-08-77 13:52:00 Test Item Value Reference Range Interpretation Comments Hct (test code = Hct) 36.4 36.0-48.0 N [facility] HospitalGrfzhxfOELHDVDQHD6026-03-26 13:52:00 Test Item Value Reference Range Interpretation Comments Hgb (test code = Hgb) 12.3 12.0-16.0 N [facility] HospitalJfruyrlLCFLYPWSPQ0639-34-93 13:52:00 Test Item Value Reference Range Interpretation Comments RBC (test code = RBC) 4.30 4.20-5.40 N [facility] HospitalGcrjaotWXVSZOPSSJ5925-32-51 13:52:00 Test Item Value Reference Range Interpretation Comments WBC (test code = WBC) 11.7 3.7-10.4 H [facility] HospitalSsondxmMIJAEVTXJP7764-02-63 13:52:00 Test Item Value Reference Range Interpretation Comments Monocytes (test code = Monocytes) 2.9 2.0-12.0 N [facility] HospitalGjsbtreLIMTNICHBQ7229-37-66 13:52:00 Test Item Value Reference Range Interpretation Comments Eosinophils (test code = 0.2 See_Comment N [A utomated message] The Eosinophils) system which nerated this result tra nsmitted reference range : <=4.0. The reference r leo was not used to int erpret this result as normal/abnormal . [facility] HospitalEpatndoBFNZOOIREN2383-83-75 13:52:00 Test Item Value Reference Range Interpretation Comments Basophils (test code = 0.0 See_Comment N [Aut omated message] The Basophils) system which ge nerated this result tra nsmitted reference range : <=1.0. The reference r leo was not used to int erpret this result as normal/abnormal . [facility] HospitalVvhmmlwBRETTUUSOI5795-10-47 13:52:00 Test Item Value Reference Range Interpretation Comments Eosinophils # (test code 0.0 See_Comment N [A utomated message] The = Eosinophils #) system [facility] generated this result tra nsmitted reference range : <=0.5. The reference r leo was not used to int erpret this result as normal/abnormal . [facility] HospitalAmfgmfiVTGOZXCEAU1269-19-22 13:52:00 Test Item Value Reference Range Interpretation Comments Monocytes # (test code 0.3 See_Comment N [Aut omated message] The = Monocytes #) system which generated this result tra nsmitted reference range : <=0.8. The reference r leo was not used to int erpret this result as normal/abnormal . [facility] HospitalGbtjotbCJCSLIEYDV3481-04-12 13:52:00 Test Item Value Reference Range Interpretation Comments Segs (test code = Segs) 92.0 45.0-75.0 H [facility] HospitalKfavxloBAZVLSEZFK0843-43-57 13:52:00 Test Item Value Reference Range Interpretation Comments Lymphocytes (test code = Lymphocytes) 4.9 20.0-40.0 L [facility] HospitalDpxefixSYUWFPVZTT6569-07-19 13:52:00 Test Item Value Reference Range Interpretation Comments Spherocyte (test code = Rare A Spherocyte) *ABN*(09/18/2011 08:52:00) [facility] HospitalJkiqeecTFFMXAPJLD1822-61-59 13:52:00 Test Item Value Reference Range Interpretation Comments Large Plt (test code = Slight *ABN*(09/18/2011 A Large Plt) 08:52:00) [facility] HospitalIhyyervKBDWRBLTCX8633-11-11 13:52:00 Test Item Value Reference Range Interpretation Comments Microcyte (test code = 1+ *ABN*(09/18/2011 A Microcyte) 08:52:00) [facility] HospitalRiqcxggSBFPIBMUET2477-75-83 13:52:00 Test Item Value Reference Range Interpretation Comments Schistocyte (test code = Schistocyte) Rare [facility] HospitalBxzdosqATSUJZFQLY3815-66-81 13:52:00 Test Item Value Reference Range Interpretation Comments Macrocyte (test code = 1+ *ABN*(09/18/2011 A Macrocyte) 08:52:00) [facility] HospitalXqtlzxrRRRLXPHSGY5382-00-58 13:52:00 Test Item Value Reference Range Interpretation Comments Lymphocytes # (test code = Lymphocytes 0.6 1.0-5.5 L #) [facility] HospitalBfzkqvvUBZXWSSJFF9950-63-64 13:52:00 Test Item Value Reference Range Interpretation Comments Segs-Bands # (test code = Segs-Bands #) 10.8 1.5-8.1 H [facility] HospitalFxiwlntXFGZHAJPME4026-55-64 13:52:00 Test Item Value Reference Range Interpretation Comments Basophils # (test code 0.0 See_Comment N [Aut omated message] The = Basophils #) system which generated this result tra nsmitted reference range : <=0.2. The reference r leo was not used to int erpret this result as normal/abnormal . [facility] HospitalEvjqkvtYDWNCXLTWS4666-62-24 13:52:00 Test Item Value Reference Range Interpretation Comments Anisocyte (test code = 1+ *ABN*(09/18/2011 A Anisocyte) 08:52:00) [facility]HxqurgrRXXDTXJDRS4206-01-70 13:52:00 Test Item Value Reference Range Interpretation Comments CDC-HIV 1/2 Ab (test Negative *NA*(09/18/2011 code = CDC-HIV 1/2 08:52:00) Ab) [facility] GLUCOSE ATUQYHU7334-25-00 17:34:00 Test Item Value Reference Range Interpretation Comments Gluc POC [facility] (test code = Gluc POC 215 70-99 H [facility]) [facility] GLUCOSE OMMZUBZ8542-00-97 17:34:00 Test Item Value Reference Range Interpretation Comments Comment1 (test code = Comment1) Notify RN/ [facility] GLUCOSE [id number] 17:34:00 Test Item Value Reference Range Interpretation Comments Gluc POC Lifscn (test code = Gluc POC 215 70-99 H [facility]) [facility] GLUCOSE XDIHBVZ8263-25-69 17:34:00 Test Item Value Reference Range Interpretation Comments Comment1 (test code = Comment1) Notify RN/ [facility] GLUCOSE SVCRBTU8439-12-88 17:34:00 Test Item Value Reference Range Interpretation Comments Gluc POC Lifscn (test code = Gluc POC 215 70-99 H [facility]) [facility] GLUCOSE PAQOJCE8457-19-29 17:34:00 Test Item Value Reference Range Interpretation Comments Comment1 (test code = Comment1) Notify RN/ [facility] GLUCOSE LQQLKTP2564-85-13 17:34:00 Test Item Value Reference Range Interpretation Comments Gluc POC Lifscn (test code = Gluc POC 215 70-99 H [facility]) [facility] GLUCOSE [id number] 17:34:00 Test Item Value Reference Range Interpretation Comments Comment1 (test code = Comment1) Notify RN/ [facility] GLUCOSE ZIYZVTC8949-66-00 17:34:00 Test Item Value Reference Range Interpretation Comments Gluc POC Lifscn (test code = Gluc POC 215 70-99 H [facility]) [facility] GLUCOSE CCJSLIQ2317-16-89 17:34:00 Test Item Value Reference Range Interpretation Comments Comment1 (test code = Comment1) Notify RN/ [facility] GLUCOSE [id number] 11:43:00 Test Item Value Reference Range Interpretation Comments Comment1 (test code = Comment1) Notify RN/ [facility] GLUCOSE [id number] 11:43:00 Test Item Value Reference Range Interpretation Comments Gluc POC Lifscn (test code = Gluc POC 91 65-110 N [facility]) [facility] GLUCOSE [id number] 11:43:00 Test Item Value Reference Range Interpretation Comments Comment1 (test code = Comment1) Notify RN/ [facility] GLUCOSE FWVVGJZ2470-95-92 11:43:00 Test Item Value Reference Range Interpretation Comments Gluc POC Lifscn (test code = Gluc POC 91 65-110 N [facility]) [facility] GLUCOSE [id number] 11:43:00 Test Item Value Reference Range Interpretation Comments Comment1 (test code = Comment1) Notify RN/ [facility] GLUCOSE [id number] 11:43:00 Test Item Value Reference Range Interpretation Comments Gluc POC Lifscn (test code = Gluc POC 91 65-110 N [facility]) [facility] GLUCOSE [id number] 11:43:00 Test Item Value Reference Range Interpretation Comments Comment1 (test code = Comment1) Notify RN/ [facility] GLUCOSE [id number] 11:43:00 Test Item Value Reference Range Interpretation Comments Gluc POC [facility] (test code = Gluc POC 91 65-110 N [place]) [facility] GLUCOSE [id number] 11:43:00 Test Item Value Reference Range Interpretation Comments Comment1 (test code = Comment1) Notify RN/ [facility] GLUCOSE [id number] 11:43:00 Test Item Value Reference Range Interpretation Comments Gluc POC [place] (test code = Gluc POC 91 65-110 N [place]) [facility] GLUCOSE [id number] 02:45:00 Test Item Value Reference Range Interpretation Comments Comment1 (test code = Comment1) Notify RN/ [facility] GLUCOSE [id number] 02:45:00 Test Item Value Reference Range Interpretation Comments Gluc POC [place] (test code = Gluc POC 148 65-110 H [place]) [facility] GLUCOSE [id number] 02:45:00 Test Item Value Reference Range Interpretation Comments Comment1 (test code = Comment1) Notify RN/ [facility] GLUCOSE [id number] 02:45:00 Test Item Value Reference Range Interpretation Comments Gluc POC [place] (test code = Gluc POC 148 65-110 H [place]) [facility] GLUCOSE [id number] 02:45:00 Test Item Value Reference Range Interpretation Comments Comment1 (test code = Comment1) Notify RN/ [facility] GLUCOSE [id number] 02:45:00 Test Item Value Reference Range Interpretation Comments Gluc POC [place] (test code = Gluc POC 148 65-110 H [place]) [facility] GLUCOSE [id number] 02:45:00 Test Item Value Reference Range Interpretation Comments Comment1 (test code = Comment1) Notify RN/ [facility] GLUCOSE [id number] 02:45:00 Test Item Value Reference Range Interpretation Comments Gluc POC [place] (test code = Gluc POC 148 65-110 H [place]) [facility] GLUCOSE [id number] 02:45:00 Test Item Value Reference Range Interpretation Comments Comment1 (test code = Comment1) Notify RN/ [facility] GLUCOSE [id number] 02:45:00 Test Item Value Reference Range Interpretation Comments Gluc POC [place] (test code = Gluc POC 148 65-110 H [place]) [facility]XxesryjXBTIVSDLE4748-20-38 08:47:00 Test Item Value Reference Range Interpretation Comments Sodium Lvl (test code = Sodium Lvl) 143 135-145 N [facility] CenterPlscynuWCBANOENY3759-63-56 08:47:00 Test Item Value Reference Range Interpretation Comments Glucose Lvl (test code = Glucose Lvl) 105 [facility] CenterDtjdmzqROZLBATXJ8461-24-70 08:47:00 Test Item Value Reference Range Interpretation Comments CO2 (test code = CO2) 29 24-32 N [facility] CenterQlummqkCTOPKLMKN8890-69-51 08:47:00 Test Item Value Reference Range Interpretation Comments Chloride Lvl (test code = Chloride Lvl) 103 95-109 N [facility] CenterUqokhgqHWKDVLYRA9863-50-31 08:47:00 Test Item Value Reference Range Interpretation Comments BUN (test code = BUN) 10 7-22 N [facility] CenterCgejfjjIWMXZQXKK2721-23-44 08:47:00 Test Item Value Reference Range Interpretation Comments Potassium Lvl (test code = Potassium 3.8 3.5-5.1 N Lvl) [facility] CenterPynvrsvPCZDORJMD9137-33-78 08:47:00 Test Item Value Reference Range Interpretation Comments Creatinine Lvl (test code = Creatinine 0.6 0.5-1.4 N Lvl) [facility] CenterZwpqideODBMPGLWB9037-53-64 08:47:00 Test Item Value Reference Range Interpretation Comments Calcium Lvl (test code = Calcium Lvl) 8.5 8.5-10.5 N [facility] CenterUrdimizYNVBFLIWE3227-90-70 08:47:00 Test Item Value Reference Range Interpretation Comments AGAP (test code = AGAP) 14.8 10.0-20.0 N [facility] HospitalPeanbjtHHXGQLOESZ2776-26-17 08:47:00 Test Item Value Reference Range Interpretation Comments MCH (test code = MCH) 28.9 pg 27.0-31.0 N [facility] HospitalVwxvnelYFTYQRVHYE9717-56-99 08:47:00 Test Item Value Reference Range Interpretation Comments MCV (test code = MCV) 82.1 81.0-99.0 N [facility] HospitalLrscscrKYFCMNTEHI3993-72-82 08:47:00 Test Item Value Reference Range Interpretation Comments Hct (test code = Hct) 25.9 36.0-48.0 L [facility] HospitalIfpfjadONNIBCOFRM9157-42-78 08:47:00 Test Item Value Reference Range Interpretation Comments Platelet (test code = Platelet) 233 133-450 N [facility] HospitalVabaxdcEZYONDSJDT3537-21-35 08:47:00 Test Item Value Reference Range Interpretation Comments RDW (test code = RDW) 14.5 11.5-14.5 N [facility] HospitalCwzqnprXJBBGUSLRO1669-56-34 08:47:00 Test Item Value Reference Range Interpretation Comments MCHC (test code = MCHC) 35.2 32.0-36.0 N [facility] HospitalVkeqdaqLQYWVHEBSD8173-87-93 08:47:00 Test Item Value Reference Range Interpretation Comments Hgb (test code = Hgb) 9.1 12.0-16.0 L [facility] HospitalIbcqeenABNOLWYWAX8905-04-05 08:47:00 Test Item Value Reference Range Interpretation Comments RBC (test code = RBC) 3.15 4.20-5.40 L [facility] HospitalHkkrrjcONVYGVDTGJ0795-47-44 08:47:00 Test Item Value Reference Range Interpretation Comments MPV (test code = MPV) 9.0 7.4-10.4 N [facility] HospitalMhofxjzXJTQJLZZMG4923-95-62 08:47:00 Test Item Value Reference Range Interpretation Comments WBC (test code = WBC) 6.3 3.7-10.4 N [facility] HospitalCetpllvDTYIBSLGRX0495-50-26 08:47:00 Test Item Value Reference Range Interpretation Comments Eosinophils # (test code 0.0 See_Comment N [A utomated message] The = Eosinophils #) system whic h generated this result tra nsmitted reference range : <=0.5. The reference r leo was not used to int erpret this result as normal/abnormal . [facility] HospitalNcrlzruVEINLDOOMY9163-32-71 08:47:00 Test Item Value Reference Range Interpretation Comments Basophils # (test code 0.0 See_Comment N [Aut omated message] The = Basophils #) system which generated this result tra nsmitted reference range : <=0.2. The reference r leo was not used to int erpret this result as normal/abnormal . [facility] HospitalMizjojeNEOJNPLCPS8362-40-82 08:47:00 Test Item Value Reference Range Interpretation Comments Segs-Bands # (test code = Segs-Bands #) 3.8 1.5-8.1 N [facility] HospitalQnvxefoHGAOMLCLGX9165-22-67 08:47:00 Test Item Value Reference Range Interpretation Comments Lymphocytes # (test code = Lymphocytes 2.0 1.0-5.5 N #) [facility] HospitalOciuabdNZMWROXHIX8326-80-09 08:47:00 Test Item Value Reference Range Interpretation Comments Basophils (test code = 0.5 See_Comment N [Aut omated message] The Basophils) system which ge nerated this result tra nsmitted reference range : <=1.0. The reference r leo was not used to int erpret this result as normal/abnormal . [facility] HospitalDdwzmuoDPGMDQWOAN6307-71-30 08:47:00 Test Item Value Reference Range Interpretation Comments Eosinophils (test code = 0.7 See_Comment N [A utomated message] The Eosinophils) system which ge nerated this result tra nsmitted reference range : <=4.0. The reference r leo was not used to int erpret this result as normal/abnormal . [facility] HospitalXvxjfpbGXUBNGBHXI6012-07-49 08:47:00 Test Item Value Reference Range Interpretation Comments Monocytes (test code = Monocytes) 6.2 2.0-12.0 N [facility] HospitalJordkxoDHGMDOUCGG9668-28-60 08:47:00 Test Item Value Reference Range Interpretation Comments Segs (test code = Segs) 61.1 45.0-75.0 N [facility] HospitalYablwlsFVQXVAKWGY9753-38-23 08:47:00 Test Item Value Reference Range Interpretation Comments Lymphocytes (test code = Lymphocytes) 31.5 20.0-40.0 N [facility] HospitalYdesqjnEEKBFVDFEG2530-71-03 08:47:00 Test Item Value Reference Range Interpretation Comments Monocytes # (test code 0.4 See_Comment N [Aut omated message] The = Monocytes #) system which generated this result tra nsmitted reference range : <=0.8. The reference r leo was not used to int erpret this result as normal/abnormal . [facility] CenterCwzhoxuHHIESLVTH6947-33-76 08:47:00 Test Item Value Reference Range Interpretation Comments Sodium Lvl (test code = Sodium Lvl) 143 135-145 N [facility] CenterOzlfgzxJEESKUFTX6023-89-22 08:47:00 Test Item Value Reference Range Interpretation Comments Glucose Lvl (test code = Glucose Lvl) 105 [facility] CenterSgcquzwXULDIOJMI3289-23-50 08:47:00 Test Item Value Reference Range Interpretation Comments CO2 (test code = CO2) 29 24-32 N [facility] CenterTamvkmwVGVOGOMIQ5602-45-24 08:47:00 Test Item Value Reference Range Interpretation Comments Chloride Lvl (test code = Chloride Lvl) 103 95-109 N [facility] CenterUjjatfpDGECFCXSM0805-11-30 08:47:00 Test Item Value Reference Range Interpretation Comments BUN (test code = BUN) 10 7-22 N [facility] CenterMpyfbepOVPTLHLJK6288-57-35 08:47:00 Test Item Value Reference Range Interpretation Comments Potassium Lvl (test code = Potassium 3.8 3.5-5.1 N Lvl) [facility] CenterGzjhlftIHTBKJDKB6320-91-19 08:47:00 Test Item Value Reference Range Interpretation Comments Creatinine Lvl (test code = Creatinine 0.6 0.5-1.4 N Lvl) [facility] CenterWhjggueESGZZWYTX5119-42-69 08:47:00 Test Item Value Reference Range Interpretation Comments Calcium Lvl (test code = Calcium Lvl) 8.5 8.5-10.5 N [facility] CenterTuyumohFOBUVFJTJ2618-95-92 08:47:00 Test Item Value Reference Range Interpretation Comments AGAP (test code = AGAP) 14.8 10.0-20.0 N [facility] HospitalVwobbwhTVJKCZRNHZ2563-49-64 08:47:00 Test Item Value Reference Range Interpretation Comments MCH (test code = MCH) 28.9 pg 27.0-31.0 N [facility] HospitalFkpiycgXEBZDMJYRO2869-98-61 08:47:00 Test Item Value Reference Range Interpretation Comments MCV (test code = MCV) 82.1 81.0-99.0 N [facility] HospitalEqjbofxLCMQFXOTQM5441-88-67 08:47:00 Test Item Value Reference Range Interpretation Comments Hct (test code = Hct) 25.9 36.0-48.0 L [facility] HospitalTgtbtcgHFGDDOMLXY9637-93-92 08:47:00 Test Item Value Reference Range Interpretation Comments Platelet (test code = Platelet) 233 133-450 N [facility] HospitalKeqeatxUGNMDHUOKZ5485-50-44 08:47:00 Test Item Value Reference Range Interpretation Comments RDW (test code = RDW) 14.5 11.5-14.5 N [facility] HospitalTpouwyaSKLDKRFWCF1579-54-06 08:47:00 Test Item Value Reference Range Interpretation Comments MCHC (test code = MCHC) 35.2 32.0-36.0 N [facility] HospitalOkljslfQFBGWEVLTT3483-34-25 08:47:00 Test Item Value Reference Range Interpretation Comments Hgb (test code = Hgb) 9.1 12.0-16.0 L [facility] HospitalFgrulhoEQRLTTTBDL9426-36-51 08:47:00 Test Item Value Reference Range Interpretation Comments RBC (test code = RBC) 3.15 4.20-5.40 L [facility] HospitalEdbhruuMPFHIEPHXZ8178-17-23 08:47:00 Test Item Value Reference Range Interpretation Comments MPV (test code = MPV) 9.0 7.4-10.4 N [facility] HospitalGxfgscgQOWLTNFXZA7495-57-30 08:47:00 Test Item Value Reference Range Interpretation Comments WBC (test code = WBC) 6.3 3.7-10.4 N [facility] HospitalIqfaofxVXUEJBWLLZ0693-58-13 08:47:00 Test Item Value Reference Range Interpretation Comments Eosinophils # (test code 0.0 See_Comment N [A utomated message] The = Eosinophils #) system whic h generated this result tra nsmitted reference range : <=0.5. The reference r loe was not used to int erpret this result as normal/abnormal . [facility] HospitalYxthlbfWPVPKFSASQ6783-52-39 08:47:00 Test Item Value Reference Range Interpretation Comments Basophils # (test code 0.0 See_Comment N [Aut omated message] The = Basophils #) system which generated this result tra nsmitted reference range : <=0.2. The reference r leo was not used to int erpret this result as normal/abnormal . [facility] HospitalXdrrobhEPBQPKNFNB9245-71-97 08:47:00 Test Item Value Reference Range Interpretation Comments Segs-Bands # (test code = Segs-Bands #) 3.8 1.5-8.1 N [facility] HospitalOijxrrlKPOYOQZYLY5046-06-02 08:47:00 Test Item Value Reference Range Interpretation Comments Lymphocytes # (test code = Lymphocytes 2.0 1.0-5.5 N #) [facility] HospitalRsiixizSTIKFVKKSX1029-25-37 08:47:00 Test Item Value Reference Range Interpretation Comments Basophils (test code = 0.5 See_Comment N [Aut omated message] The Basophils) system which ge nerated this result tra nsmitted reference range : <=1.0. The reference r leo was not used to int erpret this result as normal/abnormal . [facility] HospitalZjrsdcsOFGOCMZKGA8578-31-49 08:47:00 Test Item Value Reference Range Interpretation Comments Eosinophils (test code = 0.7 See_Comment N [A utomated message] The Eosinophils) system which ge nerated this result tra nsmitted reference range : <=4.0. The reference r leo was not used to int erpret this result as normal/abnormal . [facility] HospitalJklbxgiIOJSBSVSTD8853-12-79 08:47:00 Test Item Value Reference Range Interpretation Comments Monocytes (test code = Monocytes) 6.2 2.0-12.0 N [facility] HospitalUxuygbdBDIVLNOGUQ1088-33-54 08:47:00 Test Item Value Reference Range Interpretation Comments Segs (test code = Segs) 61.1 45.0-75.0 N [facility] HospitalKnywarvUTQSZBYRRD6454-60-70 08:47:00 Test Item Value Reference Range Interpretation Comments Lymphocytes (test code = Lymphocytes) 31.5 20.0-40.0 N [facility] HospitalRkqbqzbXSKAJKLAXI0674-39-65 08:47:00 Test Item Value Reference Range Interpretation Comments Monocytes # (test code 0.4 See_Comment N [Aut omated message] The = Monocytes #) system which generated this result tra nsmitted reference range : <=0.8. The reference r leo was not used to int erpret this result as normal/abnormal . [facility] CenterYivjkrvXKEWBCWCV3174-02-53 08:47:00 Test Item Value Reference Range Interpretation Comments Sodium Lvl (test code = Sodium Lvl) 143 135-145 N [facility] CenterKykbobcYGLSTMEUQ8709-53-34 08:47:00 Test Item Value Reference Range Interpretation Comments Glucose Lvl (test code = Glucose Lvl) 105 [facility] CenterCnxnkatJZWBRFZZZ7981-01-02 08:47:00 Test Item Value Reference Range Interpretation Comments CO2 (test code = CO2) 29 24-32 N [facility] CenterJntbzvsCUTCSZCQZ9547-22-69 08:47:00 Test Item Value Reference Range Interpretation Comments Chloride Lvl (test code = Chloride Lvl) 103 95-109 N [facility] CenterLiwimllWLUBTIQNR9799-75-08 08:47:00 Test Item Value Reference Range Interpretation Comments BUN (test code = BUN) 10 7-22 N [facility] CenterAedzauzHMMGSBXTI4965-04-86 08:47:00 Test Item Value Reference Range Interpretation Comments Potassium Lvl (test code = Potassium 3.8 3.5-5.1 N Lvl) [facility] CenterPmyvnovQHWWWPJOL2356-53-76 08:47:00 Test Item Value Reference Range Interpretation Comments Creatinine Lvl (test code = Creatinine 0.6 0.5-1.4 N Lvl) [facility] CenterDvkjrttLDREGCWON6587-00-08 08:47:00 Test Item Value Reference Range Interpretation Comments Calcium Lvl (test code = Calcium Lvl) 8.5 8.5-10.5 N [facility] CenterDvewsgaQVTEPQHTW4926-10-98 08:47:00 Test Item Value Reference Range Interpretation Comments AGAP (test code = AGAP) 14.8 10.0-20.0 N [facility] HospitalEufgvksSAFUCLGTSK7200-86-36 08:47:00 Test Item Value Reference Range Interpretation Comments MCH (test code = MCH) 28.9 pg 27.0-31.0 N [facility] HospitalQwhihbeVQKKJMNIJU6575-53-91 08:47:00 Test Item Value Reference Range Interpretation Comments MCV (test code = MCV) 82.1 81.0-99.0 N [facility] HospitalFetrcygOIQBXRFFTQ3608-36-88 08:47:00 Test Item Value Reference Range Interpretation Comments Hct (test code = Hct) 25.9 36.0-48.0 L [facility] HospitalCkruhvsUHOIIXTFRB6246-70-92 08:47:00 Test Item Value Reference Range Interpretation Comments Platelet (test code = Platelet) 233 133-450 N [facility] HospitalAurohxfXTFINQKUTN5206-27-89 08:47:00 Test Item Value Reference Range Interpretation Comments RDW (test code = RDW) 14.5 11.5-14.5 N [facility] HospitalPavsbnxBZTHXWKHNP1616-82-27 08:47:00 Test Item Value Reference Range Interpretation Comments MCHC (test code = MCHC) 35.2 32.0-36.0 N [facility] HospitalFcxxygjGZZZOWJIDD3916-18-42 08:47:00 Test Item Value Reference Range Interpretation Comments Hgb (test code = Hgb) 9.1 12.0-16.0 L [facility] HospitalFboifgqKBHVIFTQCI9338-61-20 08:47:00 Test Item Value Reference Range Interpretation Comments RBC (test code = RBC) 3.15 4.20-5.40 L [facility] HospitalWpcbawjOGFURFKYUQ0464-74-44 08:47:00 Test Item Value Reference Range Interpretation Comments MPV (test code = MPV) 9.0 7.4-10.4 N [facility] HospitalTlcprwnBSVYMTAJQE3826-46-78 08:47:00 Test Item Value Reference Range Interpretation Comments WBC (test code = WBC) 6.3 3.7-10.4 N [facility] HospitalJylqhkaETKLRBVCID2079-20-17 08:47:00 Test Item Value Reference Range Interpretation Comments Eosinophils # (test code 0.0 See_Comment N [A utomated message] The = Eosinophils #) system [facility] generated this result tra nsmitted reference range : <=0.5. The reference r leo was not used to int erpret this result as normal/abnormal . [facility] HospitalSlmbtqxAZFLJNPSVI3529-97-02 08:47:00 Test Item Value Reference Range Interpretation Comments Basophils # (test code 0.0 See_Comment N [Aut omated message] The = Basophils #) system which generated this result tra nsmitted reference range : <=0.2. The reference r leo was not used to int erpret this result as normal/abnormal . [facility] HospitalAdzifwbGYOHXNAVEY3547-64-49 08:47:00 Test Item Value Reference Range Interpretation Comments Segs-Bands # (test code = Segs-Bands #) 3.8 1.5-8.1 N [facility] HospitalYpszabzIFCTSNMQYR2799-10-61 08:47:00 Test Item Value Reference Range Interpretation Comments Lymphocytes # (test code = Lymphocytes 2.0 1.0-5.5 N #) [facility] HospitalTgqkccfJQGYIUSPBP6180-88-03 08:47:00 Test Item Value Reference Range Interpretation Comments Basophils (test code = 0.5 See_Comment N [Aut omated message] The Basophils) system which ge nerated this result tra nsmitted reference range : <=1.0. The reference r leo was not used to int erpret this result as normal/abnormal . [facility] HospitalVlytdzxINSZKNZDTQ8383-78-80 08:47:00 Test Item Value Reference Range Interpretation Comments Eosinophils (test code = 0.7 See_Comment N [A utomated message] The Eosinophils) system which ge nerated this result tra nsmitted reference range : <=4.0. The reference r leo was not used to int erpret this result as normal/abnormal . [facility] HospitalVgaugdoKFVRFYUQXE5541-60-38 08:47:00 Test Item Value Reference Range Interpretation Comments Monocytes (test code = Monocytes) 6.2 2.0-12.0 N [facility] HospitalJeoytfnNDHPYTWHXQ3594-70-59 08:47:00 Test Item Value Reference Range Interpretation Comments Segs (test code = Segs) 61.1 45.0-75.0 N [facility] HospitalFfqtdorGVDBLYJRQA4830-84-72 08:47:00 Test Item Value Reference Range Interpretation Comments Lymphocytes (test code = Lymphocytes) 31.5 20.0-40.0 N [facility] HospitalSqtzrjiISOYZTWMPS1073-56-12 08:47:00 Test Item Value Reference Range Interpretation Comments Monocytes # (test code 0.4 See_Comment N [Aut omated message] The = Monocytes #) system which generated this result tra nsmitted reference range : <=0.8. The reference r leo was not used to int erpret this result as normal/abnormal . [facility] CenterAondgjaXEIAQDRUQ1075-64-11 08:47:00 Test Item Value Reference Range Interpretation Comments Sodium Lvl (test code = Sodium Lvl) 143 135-145 N [facility] CenterXgketjpMBZDBMYNJ7297-28-90 08:47:00 Test Item Value Reference Range Interpretation Comments Glucose Lvl (test code = Glucose Lvl) 105 [facility] CenterYrmwfukUHUHJONRQ9620-09-89 08:47:00 Test Item Value Reference Range Interpretation Comments CO2 (test code = CO2) 29 24-32 N [facility] CenterHcxsjolHGSYHNLVK7718-81-20 08:47:00 Test Item Value Reference Range Interpretation Comments Chloride Lvl (test code = Chloride Lvl) 103 95-109 N [facility] CenterOjmpzzkIQWJTQUJB7041-94-08 08:47:00 Test Item Value Reference Range Interpretation Comments BUN (test code = BUN) 10 7-22 N [facility] CenterWallelqVVMXLKYEA5978-60-09 08:47:00 Test Item Value Reference Range Interpretation Comments Potassium Lvl (test code = Potassium 3.8 3.5-5.1 N Lvl) [facility] CenterGzejnyiCFAGMORVY4972-80-96 08:47:00 Test Item Value Reference Range Interpretation Comments Creatinine Lvl (test code = Creatinine 0.6 0.5-1.4 N Lvl) [facility] CenterWedjcjwUAZJDHVSM1906-86-98 08:47:00 Test Item Value Reference Range Interpretation Comments Calcium Lvl (test code = Calcium Lvl) 8.5 8.5-10.5 N [facility] CenterNjhmjnkLQELPIGYL2836-17-34 08:47:00 Test Item Value Reference Range Interpretation Comments AGAP (test code = AGAP) 14.8 10.0-20.0 N [facility] HospitalFusldaePAHEHDCGVP1325-35-17 08:47:00 Test Item Value Reference Range Interpretation Comments MCH (test code = MCH) 28.9 pg 27.0-31.0 N [facility] HospitalDnzfnoeLFMERLQAJN5173-15-00 08:47:00 Test Item Value Reference Range Interpretation Comments MCV (test code = MCV) 82.1 81.0-99.0 N [facility] HospitalAvfshiyHHSNZKBVAL0730-80-53 08:47:00 Test Item Value Reference Range Interpretation Comments Hct (test code = Hct) 25.9 36.0-48.0 L [facility] HospitalRgiyikkOJHLEIUYMY8406-29-73 08:47:00 Test Item Value Reference Range Interpretation Comments Platelet (test code = Platelet) 233 133-450 N [facility] HospitalZykjxksBNLDLAODBT1518-81-35 08:47:00 Test Item Value Reference Range Interpretation Comments RDW (test code = RDW) 14.5 11.5-14.5 N [facility] HospitalDkqwgqmQHBRXDOZYX8715-69-16 08:47:00 Test Item Value Reference Range Interpretation Comments MCHC (test code = MCHC) 35.2 32.0-36.0 N [facility] HospitalFairvhwEGNILYMRMK1484-47-78 08:47:00 Test Item Value Reference Range Interpretation Comments Hgb (test code = Hgb) 9.1 12.0-16.0 L [facility] HospitalGcoqbgfFIHFCAUQFY1728-61-93 08:47:00 Test Item Value Reference Range Interpretation Comments RBC (test code = RBC) 3.15 4.20-5.40 L [facility] HospitalOgrmrwzYVAVRYFCES5543-59-97 08:47:00 Test Item Value Reference Range Interpretation Comments MPV (test code = MPV) 9.0 7.4-10.4 N [facility] HospitalAvpzszzKJEBNOWYXR7412-86-75 08:47:00 Test Item Value Reference Range Interpretation Comments WBC (test code = WBC) 6.3 3.7-10.4 N [facility] HospitalUolxudwZJBNSILLNM6967-11-96 08:47:00 Test Item Value Reference Range Interpretation Comments Eosinophils # (test code 0.0 See_Comment N [A utomated message] The = Eosinophils #) system whic h generated this result tra nsmitted reference range : <=0.5. The reference r leo was not used to int erpret this result as normal/abnormal . [facility] HospitalLfpbbdcZIMJOEVUFC1336-18-89 08:47:00 Test Item Value Reference Range Interpretation Comments Basophils # (test code 0.0 See_Comment N [Aut omated message] The = Basophils #) system which generated this result tra nsmitted reference range : <=0.2. The reference r leo was not used to int erpret this result as normal/abnormal . [facility] HospitalWvrsjxaZOYOMMQREL6224-48-93 08:47:00 Test Item Value Reference Range Interpretation Comments Segs-Bands # (test code = Segs-Bands #) 3.8 1.5-8.1 N [facility] HospitalKwxufyeCTHAKMBABM3606-94-60 08:47:00 Test Item Value Reference Range Interpretation Comments Lymphocytes # (test code = Lymphocytes 2.0 1.0-5.5 N #) [facility] HospitalFsvpombFRMIGHEYYC8115-58-59 08:47:00 Test Item Value Reference Range Interpretation Comments Basophils (test code = 0.5 See_Comment N [Aut omated message] The Basophils) system which ge nerated this result tra nsmitted reference range : <=1.0. The reference r leo was not used to int erpret this result as normal/abnormal . [facility] HospitalHsrcsweQIUWTMSVOQ8983-02-96 08:47:00 Test Item Value Reference Range Interpretation Comments Eosinophils (test code = 0.7 See_Comment N [A utomated message] The Eosinophils) system which ge nerated this result tra nsmitted reference range : <=4.0. The reference r leo was not used to int erpret this result as normal/abnormal . [facility]LvhxmocRECTRTNLMX5023-84-80 08:47:00 Test Item Value Reference Range Interpretation Comments Monocytes (test code = Monocytes) 6.2 2.0-12.0 N [facility] HospitalEahxkphNGFYTVQWZQ7905-01-84 08:47:00 Test Item Value Reference Range Interpretation Comments Segs (test code = Segs) 61.1 45.0-75.0 N [facility] HospitalLtncrhgCXLMCYPJSQ2661-72-15 08:47:00 Test Item Value Reference Range Interpretation Comments Lymphocytes (test code = Lymphocytes) 31.5 20.0-40.0 N [facility] HospitalVkbyszjQXYBWBGUKX9017-89-55 08:47:00 Test Item Value Reference Range Interpretation Comments Monocytes # (test code 0.4 See_Comment N [Aut omated message] The = Monocytes #) system which generated this result tra nsmitted reference range : <=0.8. The reference r leo was not used to int erpret this result as normal/abnormal . [facility]AdhoefdWIZNTRTZK9168-74-87 08:47:00 Test Item Value Reference Range Interpretation Comments Sodium Lvl (test code = Sodium Lvl) 143 135-145 N [facility] CenterUxllpabCKFAXPQVU8844-34-03 08:47:00 Test Item Value Reference Range Interpretation Comments Glucose Lvl (test code = Glucose Lvl) 105 [facility] CenterVwcikguWUXAREORZ1151-01-76 08:47:00 Test Item Value Reference Range Interpretation Comments CO2 (test code = CO2) 29 24-32 N [facility] CenterJgflixcNYWLWCJJR9607-07-99 08:47:00 Test Item Value Reference Range Interpretation Comments Chloride Lvl (test code = Chloride Lvl) 103 95-109 N [facility] CenterObabwajMTKOVDBOF3538-88-10 08:47:00 Test Item Value Reference Range Interpretation Comments BUN (test code = BUN) 10 7-22 N [facility] CenterVrzylhbKQYIPQNHN0689-18-76 08:47:00 Test Item Value Reference Range Interpretation Comments Potassium Lvl (test code = Potassium 3.8 3.5-5.1 N Lvl) [facility] CenterHcgesrnXYTOTIRYV7713-92-05 08:47:00 Test Item Value Reference Range Interpretation Comments Creatinine Lvl (test code = Creatinine 0.6 0.5-1.4 N Lvl) [facility] CenterKmlmwkyARNYKAQUO0867-19-57 08:47:00 Test Item Value Reference Range Interpretation Comments Calcium Lvl (test code = Calcium Lvl) 8.5 8.5-10.5 N [facility] CenterWsdojhuVADYRTFMW6893-43-28 08:47:00 Test Item Value Reference Range Interpretation Comments AGAP (test code = AGAP) 14.8 10.0-20.0 N [facility] HospitalDetfwdjJHNVDAWZPU8895-25-99 08:47:00 Test Item Value Reference Range Interpretation Comments MCH (test code = MCH) 28.9 pg 27.0-31.0 N [facility] HospitalIqqxoduGZVKGTZLOZ0197-44-27 08:47:00 Test Item Value Reference Range Interpretation Comments MCV (test code = MCV) 82.1 81.0-99.0 N [facility] HospitalJwqmkdsHBCHBFZWOX2491-05-62 08:47:00 Test Item Value Reference Range Interpretation Comments Hct (test code = Hct) 25.9 36.0-48.0 L [facility] HospitalIqfcrorZNJANMSIME1724-32-04 08:47:00 Test Item Value Reference Range Interpretation Comments Platelet (test code = Platelet) 233 133-450 N [facility] HospitalNqilkzdXJBFBDLAGE4648-99-91 08:47:00 Test Item Value Reference Range Interpretation Comments RDW (test code = RDW) 14.5 11.5-14.5 N [facility] HospitalKljxjokZJITDKJKXA8065-35-20 08:47:00 Test Item Value Reference Range Interpretation Comments MCHC (test code = MCHC) 35.2 32.0-36.0 N [facility] HospitalRzkwozdDZJMSKTKEO2539-38-08 08:47:00 Test Item Value Reference Range Interpretation Comments Hgb (test code = Hgb) 9.1 12.0-16.0 L [facility] HospitalSyujvxuSYUQJXUDLU0236-80-29 08:47:00 Test Item Value Reference Range Interpretation Comments RBC (test code = RBC) 3.15 4.20-5.40 L [facility] HospitalXrlynhdGXXWHXSJZQ3761-51-22 08:47:00 Test Item Value Reference Range Interpretation Comments MPV (test code = MPV) 9.0 7.4-10.4 N [facility] HospitalAszlrggQHACBIOWON3572-36-19 08:47:00 Test Item Value Reference Range Interpretation Comments WBC (test code = WBC) 6.3 3.7-10.4 N [facility] HospitalOjubzfvKSZPVRXOYB1709-35-14 08:47:00 Test Item Value Reference Range Interpretation Comments Eosinophils # (test code 0.0 See_Comment N [A utomated message] The = Eosinophils #) system whic h generated this result tra nsmitted reference range : <=0.5. The reference r elo was not used to int erpret this result as normal/abnormal . [facility] HospitalLgwfsaiLQENOXFTWK6198-73-26 08:47:00 Test Item Value Reference Range Interpretation Comments Basophils # (test code 0.0 See_Comment N [Aut omated message] The = Basophils #) system which generated this result tra nsmitted reference range : <=0.2. The reference r leo was not used to int erpret this result as normal/abnormal . [facility] HospitalCoautkmSIKHLLZOMJ9326-94-97 08:47:00 Test Item Value Reference Range Interpretation Comments Segs-Bands # (test code = Segs-Bands #) 3.8 1.5-8.1 N [facility] HospitalFcrtptfYXFMSUBCNL8601-81-97 08:47:00 Test Item Value Reference Range Interpretation Comments Lymphocytes # (test code = Lymphocytes 2.0 1.0-5.5 N #) [facility] HospitalTuxacfsXRPYXYLYYX9975-87-75 08:47:00 Test Item Value Reference Range Interpretation Comments Basophils (test code = 0.5 See_Comment N [Aut omated message] The Basophils) system which ge nerated this result tra nsmitted reference range : <=1.0. The reference r leo was not used to int erpret this result as normal/abnormal . [facility] HospitalRjbbrahNIDZFZFWDP1046-60-19 08:47:00 Test Item Value Reference Range Interpretation Comments Eosinophils (test code = 0.7 See_Comment N [A utomated message] The Eosinophils) system which ge nerated this result tra nsmitted reference range : <=4.0. The reference r leo was not used to int erpret this result as normal/abnormal . [facility] HospitalJhlbfmhYGCTHBMRVI8466-55-78 08:47:00 Test Item Value Reference Range Interpretation Comments Monocytes (test code = Monocytes) 6.2 2.0-12.0 N [facility] HospitalGkcjfocFFZQYKXFRW5220-07-55 08:47:00 Test Item Value Reference Range Interpretation Comments Segs (test code = Segs) 61.1 45.0-75.0 N [facility] HospitalIdhcszxQUDQHFGEVK9673-78-55 08:47:00 Test Item Value Reference Range Interpretation Comments Lymphocytes (test code = Lymphocytes) 31.5 20.0-40.0 N [facility] HospitalGmoibkhIAETVAZTIZ4094-06-20 08:47:00 Test Item Value Reference Range Interpretation Comments Monocytes # (test code 0.4 See_Comment N [Aut omated message] The = Monocytes #) system which generated this result tra nsmitted reference range : <=0.8. The reference r leo was not used to int erpret this result as normal/abnormal . [facility] CenterJqkzakxGJGBBRJGH6664-49-24 10:54:00 Test Item Value Reference Range Interpretation Comments CO2 (test code = CO2) 27 24-32 N [facility] CenterMarketmHDXBDWPIR6904-30-34 10:54:00 Test Item Value Reference Range Interpretation Comments Chloride Lvl (test code = Chloride Lvl) 104 95-109 N [facility] CenterKhohghyRBZMVYDUG5507-93-50 10:54:00 Test Item Value Reference Range Interpretation Comments Creatinine Lvl (test code = Creatinine 0.5 0.5-1.4 N Lvl) [facility] CenterUbonphdHRMYKTVJE8278-63-43 10:54:00 Test Item Value Reference Range Interpretation Comments BUN (test code = BUN) 10 7-22 N [facility] CenterCbyymgzIPRMCHHAJ3843-21-33 10:54:00 Test Item Value Reference Range Interpretation Comments Potassium Lvl (test code = Potassium 4.1 3.5-5.1 N Lvl) [facility] CenterWujwtjyIAHQROGYW2431-50-93 10:54:00 Test Item Value Reference Range Interpretation Comments Sodium Lvl (test code = Sodium Lvl) 141 135-145 N [facility] CenterOfmvulzEKUICCJLK7844-24-91 10:54:00 Test Item Value Reference Range Interpretation Comments Glucose Lvl (test code = Glucose Lvl) 83 [facility] CenterAsxkkvzYJTUSHOWQ1533-22-68 10:54:00 Test Item Value Reference Range Interpretation Comments Calcium Lvl (test code = Calcium Lvl) 8.4 8.5-10.5 L [facility] CenterYwobmqlISVFZRZQJ5695-92-22 10:54:00 Test Item Value Reference Range Interpretation Comments AGAP (test code = AGAP) 14.1 10.0-20.0 N [facility] HospitalEeaarftOOBXUEXKRS2920-78-91 10:54:00 Test Item Value Reference Range Interpretation Comments Hct (test code = Hct) 35.5 36.0-48.0 L [facility] HospitalEiqlkwfNGCRPMKRSD3859-02-19 10:54:00 Test Item Value Reference Range Interpretation Comments WBC (test code = WBC) 4.7 3.7-10.4 N [facility] HospitalBvtxohvNXZORGILNW3137-04-69 10:54:00 Test Item Value Reference Range Interpretation Comments MCV (test code = MCV) 92.6 81.0-99.0 N [facility] HospitalEsefniwORFQVKNPMB1621-35-78 10:54:00 Test Item Value Reference Range Interpretation Comments MCH (test code = MCH) 31.4 pg 27.0-31.0 H [facility] HospitalItktlknVRMQYLRGWT0324-36-71 10:54:00 Test Item Value Reference Range Interpretation Comments RBC (test code = RBC) 3.84 4.20-5.40 L [facility] HospitalDhoqkehGJYROQWFHX0909-50-77 10:54:00 Test Item Value Reference Range Interpretation Comments Hgb (test code = Hgb) 12.1 12.0-16.0 N [facility] HospitalTeyvesfJIKINBHZXB2110-23-56 10:54:00 Test Item Value Reference Range Interpretation Comments Platelet (test code = Platelet) 287 133-450 N [facility] HospitalSrtzwizYGFEMXTGBL7784-25-64 10:54:00 Test Item Value Reference Range Interpretation Comments RDW (test code = RDW) 12.7 11.5-14.5 N [facility] HospitalMbyhcrwJEOZFOFBFD7928-60-40 10:54:00 Test Item Value Reference Range Interpretation Comments MCHC (test code = MCHC) 33.9 32.0-36.0 N [facility] HospitalJcesaopCMSCNTITDP9320-32-55 10:54:00 Test Item Value Reference Range Interpretation Comments MPV (test code = MPV) 7.2 7.4-10.4 L [facility] HospitalRqdhfqrYKPPDQSVFP9489-11-26 10:54:00 Test Item Value Reference Range Interpretation Comments INR (test code = INR) 0.95 0.85-1.17 N [facility] HospitalDnyzcyiOSUUHIIMAL3600-99-33 10:54:00 Test Item Value Reference Range Interpretation Comments PT (test code = PT) 12.7 s 12.0-14.7 N [facility] HospitalGictyhzNHQFUMWWBC3049-03-64 10:54:00 Test Item Value Reference Range Interpretation Comments PTT (test code = PTT) 28.5 s 22.9-35.8 N [facility] HospitalRwjiieaUSBBMLNBYC1045-29-88 10:54:00 Test Item Value Reference Range Interpretation Comments Eosinophils # (test code 0.1 See_Comment N [A utomated message] The = Eosinophils #) system whic h generated this result tra nsmitted reference range : <=0.5. The reference r leo was not used to int erpret this result as normal/abnormal . [facility] HospitalYgfgyyeIDEHVUNBGH6925-70-35 10:54:00 Test Item Value Reference Range Interpretation Comments Basophils # (test code 0.0 See_Comment N [Aut omated message] The = Basophils #) system which generated this result tra nsmitted reference range : <=0.2. The reference r leo was not used to int erpret this result as normal/abnormal . [facility] HospitalCkssaldFWKIFIZLGU8783-37-53 10:54:00 Test Item Value Reference Range Interpretation Comments Basophils (test code = 0.4 See_Comment N [Aut omated message] The Basophils) system which ge nerated this result tra nsmitted reference range : <=1.0. The reference r leo was not used to int erpret this result as normal/abnormal . [facility] HospitalNhucpycWXIYHBOFAN4647-17-93 10:54:00 Test Item Value Reference Range Interpretation Comments Segs-Bands # (test code = Segs-Bands #) 2.1 1.5-8.1 N [facility] HospitalPdchfpxPCCRUKEAZD3213-10-01 10:54:00 Test Item Value Reference Range Interpretation Comments Monocytes (test code = Monocytes) 9.0 2.0-12.0 N [facility] HospitalEzspmlcBPWACHQHLW9894-79-41 10:54:00 Test Item Value Reference Range Interpretation Comments Eosinophils (test code = 2.4 See_Comment N [A utomated message] The Eosinophils) system which ge nerated this result tra nsmitted reference range : <=4.0. The reference r leo was not used to int erpret this result as normal/abnormal . [facility] HospitalAviepylVMFOXLREAX6485-59-61 10:54:00 Test Item Value Reference Range Interpretation Comments Monocytes # (test code 0.4 See_Comment N [Aut omated message] The = Monocytes #) system which generated this result tra nsmitted reference range : <=0.8. The reference r leo was not used to int erpret this result as normal/abnormal . [facility] HospitalJfyamxdAQQEGZVRGY9379-92-01 10:54:00 Test Item Value Reference Range Interpretation Comments Lymphocytes # (test code = Lymphocytes 2.0 1.0-5.5 N #) [facility] HospitalVxbbhvdHWMJZINHKT0388-44-55 10:54:00 Test Item Value Reference Range Interpretation Comments Lymphocytes (test code = Lymphocytes) 42.8 20.0-40.0 H [facility] HospitalMayarqkKSVCDBJBUE2505-32-32 10:54:00 Test Item Value Reference Range Interpretation Comments Segs (test code = Segs) 45.4 45.0-75.0 N [facility] CenterBuzfeaxPEXMXHHCY8066-28-55 10:54:00 Test Item Value Reference Range Interpretation Comments CO2 (test code = CO2) 27 24-32 N [facility] CenterHhqzymkYJZBRPWET2467-70-77 10:54:00 Test Item Value Reference Range Interpretation Comments Chloride Lvl (test code = Chloride Lvl) 104 95-109 N [facility] CenterHzarephYMWDSVQWN8516-46-63 10:54:00 Test Item Value Reference Range Interpretation Comments Creatinine Lvl (test code = Creatinine 0.5 0.5-1.4 N Lvl) [facility] CenterEldnkwkHCQOIKTVX9030-29-44 10:54:00 Test Item Value Reference Range Interpretation Comments BUN (test code = BUN) 10 7-22 N [facility] CenterWccyofoVCSYXPUUV3323-21-72 10:54:00 Test Item Value Reference Range Interpretation Comments Potassium Lvl (test code = Potassium 4.1 3.5-5.1 N Lvl) [facility] CenterPhgflafOIKUVQSCA9883-01-90 10:54:00 Test Item Value Reference Range Interpretation Comments Sodium Lvl (test code = Sodium Lvl) 141 135-145 N [facility] CenterNnpnpcyJHREAUVVH2705-52-56 10:54:00 Test Item Value Reference Range Interpretation Comments Glucose Lvl (test code = Glucose Lvl) 83 [facility] CenterZgzqsvwWZULYAXPQ7972-57-81 10:54:00 Test Item Value Reference Range Interpretation Comments Calcium Lvl (test code = Calcium Lvl) 8.4 8.5-10.5 L [facility] CenterJansyjuLVIMHUMII9091-53-54 10:54:00 Test Item Value Reference Range Interpretation Comments AGAP (test code = AGAP) 14.1 10.0-20.0 N [facility] HospitalIeilvqsVETNXRAPPN4515-57-90 10:54:00 Test Item Value Reference Range Interpretation Comments Hct (test code = Hct) 35.5 36.0-48.0 L [facility] HospitalUuppborXMAIPNFZLO1088-67-11 10:54:00 Test Item Value Reference Range Interpretation Comments WBC (test code = WBC) 4.7 3.7-10.4 N [facility] HospitalJxlzhjhTFTFYVTYXK2550-05-21 10:54:00 Test Item Value Reference Range Interpretation Comments MCV (test code = MCV) 92.6 81.0-99.0 N [facility] HospitalPgfxhrtBEGJYUSKED1468-70-11 10:54:00 Test Item Value Reference Range Interpretation Comments MCH (test code = MCH) 31.4 pg 27.0-31.0 H [facility] HospitalIrzzsfqWKEDCDWLLH9531-79-39 10:54:00 Test Item Value Reference Range Interpretation Comments RBC (test code = RBC) 3.84 4.20-5.40 L [facility] HospitalFcfrgqaTLUGBFQCXJ5531-16-03 10:54:00 Test Item Value Reference Range Interpretation Comments Hgb (test code = Hgb) 12.1 12.0-16.0 N [facility] HospitalEtrbjoeZGTNZBJZBV3156-40-75 10:54:00 Test Item Value Reference Range Interpretation Comments Platelet (test code = Platelet) 287 133-450 N [facility] HospitalXpgsdtaCTBIGNLBGI5102-73-35 10:54:00 Test Item Value Reference Range Interpretation Comments RDW (test code = RDW) 12.7 11.5-14.5 N [facility] HospitalJznloasOCGXUHCFEG4688-83-64 10:54:00 Test Item Value Reference Range Interpretation Comments MCHC (test code = MCHC) 33.9 32.0-36.0 N [facility] HospitalOuuhavjKJUWWNYYFO4138-69-39 10:54:00 Test Item Value Reference Range Interpretation Comments MPV (test code = MPV) 7.2 7.4-10.4 L [facility] HospitalIgahzkrNDUTDFOJNZ7063-12-21 10:54:00 Test Item Value Reference Range Interpretation Comments INR (test code = INR) 0.95 0.85-1.17 N [facility] HospitalNldijeyNFUYESRYGX5004-81-31 10:54:00 Test Item Value Reference Range Interpretation Comments PT (test code = PT) 12.7 s 12.0-14.7 N [facility] HospitalZwynqesFCDQUZTDPM0867-61-78 10:54:00 Test Item Value Reference Range Interpretation Comments PTT (test code = PTT) 28.5 s 22.9-35.8 N [facility] HospitalNrgasvfJXKPXBMAJQ0249-84-69 10:54:00 Test Item Value Reference Range Interpretation Comments Eosinophils # (test code 0.1 See_Comment N [A utomated message] The = Eosinophils #) system [facility] h generated this result tra nsmitted reference range : <=0.5. The reference r leo was not used to int erpret this result as normal/abnormal . [facility] HospitalHrbecjcDGNQDMXDCC5527-85-61 10:54:00 Test Item Value Reference Range Interpretation Comments Basophils # (test code 0.0 See_Comment N [Aut omated message] The = Basophils #) system which generated this result tra nsmitted reference range : <=0.2. The reference r leo was not used to int erpret this result as normal/abnormal . [facility] HospitalPevijiaCARLOGZWWT3475-66-71 10:54:00 Test Item Value Reference Range Interpretation Comments Basophils (test code = 0.4 See_Comment N [Aut omated message] The Basophils) system which ge nerated this result tra nsmitted reference range : <=1.0. The reference r leo was not used to int erpret this result as normal/abnormal . [facility] HospitalOmgyupmFBXGSBONHM6368-73-37 10:54:00 Test Item Value Reference Range Interpretation Comments Segs-Bands # (test code = Segs-Bands #) 2.1 1.5-8.1 N [facility] HospitalZnmccaeLJJXOUIQFL1735-82-49 10:54:00 Test Item Value Reference Range Interpretation Comments Monocytes (test code = Monocytes) 9.0 2.0-12.0 N [facility] HospitalDfjrugqOGZFNSTLYV1381-17-20 10:54:00 Test Item Value Reference Range Interpretation Comments Eosinophils (test code = 2.4 See_Comment N [A utomated message] The Eosinophils) system which ge nerated this result tra nsmitted reference range : <=4.0. The reference r leo was not used to int erpret this result as normal/abnormal . [facility] HospitalLsfrjcsYCLSRGRIXU2903-52-33 10:54:00 Test Item Value Reference Range Interpretation Comments Monocytes # (test code 0.4 See_Comment N [Aut omated message] The = Monocytes #) system which generated this result tra nsmitted reference range : <=0.8. The reference r leo was not used to int erpret this result as normal/abnormal . [facility] HospitalOdwetmkHUQHJBTEGT0251-15-25 10:54:00 Test Item Value Reference Range Interpretation Comments Lymphocytes # (test code = Lymphocytes 2.0 1.0-5.5 N #) [facility] HospitalIuqgopoKTTNGUHVES7232-73-80 10:54:00 Test Item Value Reference Range Interpretation Comments Lymphocytes (test code = Lymphocytes) 42.8 20.0-40.0 H [facility] HospitalVjqartpKTPQSCBLZE0910-77-66 10:54:00 Test Item Value Reference Range Interpretation Comments Segs (test code = Segs) 45.4 45.0-75.0 N [facility] CenterOxxkunxAOKETRSKP4096-19-76 10:54:00 Test Item Value Reference Range Interpretation Comments CO2 (test code = CO2) 27 24-32 N [facility] CenterSbvsxflTCTDFWVJT5174-38-70 10:54:00 Test Item Value Reference Range Interpretation Comments Chloride Lvl (test code = Chloride Lvl) 104 95-109 N [facility] CenterFtzkwzbVFORLDCWC0405-85-83 10:54:00 Test Item Value Reference Range Interpretation Comments Creatinine Lvl (test code = Creatinine 0.5 0.5-1.4 N Lvl) [facility] CenterLmqmxmsJIMFVPITF7160-59-11 10:54:00 Test Item Value Reference Range Interpretation Comments BUN (test code = BUN) 10 7-22 N [facility] CenterVvsjtfvERGZDFDAL5926-80-35 10:54:00 Test Item Value Reference Range Interpretation Comments Potassium Lvl (test code = Potassium 4.1 3.5-5.1 N Lvl) [facility] CenterYwyvwkrNUHFRRNSP9750-44-60 10:54:00 Test Item Value Reference Range Interpretation Comments Sodium Lvl (test code = Sodium Lvl) 141 135-145 N [facility] CenterSuzulgpPCBAWGKRX5109-65-03 10:54:00 Test Item Value Reference Range Interpretation Comments Glucose Lvl (test code = Glucose Lvl) 83 [facility] CenterWjicltbUQNZUJQZE9907-54-55 10:54:00 Test Item Value Reference Range Interpretation Comments Calcium Lvl (test code = Calcium Lvl) 8.4 8.5-10.5 L [facility] CenterUmfclswNXAAFJTAE2211-28-06 10:54:00 Test Item Value Reference Range Interpretation Comments AGAP (test code = AGAP) 14.1 10.0-20.0 N [facility] HospitalNnyegpjMDUOBPVUYB7359-70-07 10:54:00 Test Item Value Reference Range Interpretation Comments Hct (test code = Hct) 35.5 36.0-48.0 L [facility] HospitalQcylfqgSJYZCSNYBH1727-19-44 10:54:00 Test Item Value Reference Range Interpretation Comments WBC (test code = WBC) 4.7 3.7-10.4 N [facility] HospitalFrhfoxdEVZRBWUZHB9132-63-97 10:54:00 Test Item Value Reference Range Interpretation Comments MCV (test code = MCV) 92.6 81.0-99.0 N [facility] HospitalXnbxswxEDDZQWLEDE3200-16-83 10:54:00 Test Item Value Reference Range Interpretation Comments MCH (test code = MCH) 31.4 pg 27.0-31.0 H [facility] HospitalQmrbylwBALWAGUBTO5295-63-33 10:54:00 Test Item Value Reference Range Interpretation Comments RBC (test code = RBC) 3.84 4.20-5.40 L [facility] HospitalYldpxbaHMCOGFUKTN6685-17-56 10:54:00 Test Item Value Reference Range Interpretation Comments Hgb (test code = Hgb) 12.1 12.0-16.0 N [facility] HospitalYergjouOWVVFMUPPG9639-08-84 10:54:00 Test Item Value Reference Range Interpretation Comments Platelet (test code = Platelet) 287 133-450 N [facility] HospitalBudgzxsQCAQNKAYVE9817-90-84 10:54:00 Test Item Value Reference Range Interpretation Comments RDW (test code = RDW) 12.7 11.5-14.5 N [facility] HospitalNhohumqJBETASUZCA6967-06-00 10:54:00 Test Item Value Reference Range Interpretation Comments MCHC (test code = MCHC) 33.9 32.0-36.0 N [facility] HospitalMvrxydsOPCFHHOTTO9406-44-15 10:54:00 Test Item Value Reference Range Interpretation Comments MPV (test code = MPV) 7.2 7.4-10.4 L [facility] HospitalJvllyeaTJQMGNVVLF9454-61-57 10:54:00 Test Item Value Reference Range Interpretation Comments INR (test code = INR) 0.95 0.85-1.17 N [facility] HospitalWhgqprtAUGUNCBDLV4946-04-74 10:54:00 Test Item Value Reference Range Interpretation Comments PT (test code = PT) 12.7 s 12.0-14.7 N [facility] HospitalKsofwisYQRDESPYSK8939-12-32 10:54:00 Test Item Value Reference Range Interpretation Comments PTT (test code = PTT) 28.5 s 22.9-35.8 N [facility] HospitalOmkoqjrJUXFFPZGBF6182-81-84 10:54:00 Test Item Value Reference Range Interpretation Comments Eosinophils # (test code 0.1 See_Comment N [A utomated message] The = Eosinophils #) system whic h generated this result tra nsmitted reference range : <=0.5. The reference r leo was not used to int erpret this result as normal/abnormal . [facility] HospitalBgntidqEUKLKKUIEV7214-34-99 10:54:00 Test Item Value Reference Range Interpretation Comments Basophils # (test code 0.0 See_Comment N [Aut omated message] The = Basophils #) system which generated this result tra nsmitted reference range : <=0.2. The reference r leo was not used to int erpret this result as normal/abnormal . [place] 563202-03-19 10:54:00 Test Item Value Reference Range Interpretation Comments Basophils (test code = 0.4 See_Comment N [Aut omated message] The Basophils) system which ge nerated this result tra nsmitted reference range : <=1.0. The reference r leo was not used to int erpret this result as normal/abnormal . [facility] [facility]CrejewjRYPUDZIJUH8151-33-83 10:54:00 Test Item Value Reference Range Interpretation Comments Segs-Bands # (test code = Segs-Bands #) 2.1 1.5-8.1 N [facility]UyaxwktFVQJTLPDET2145-22-05 10:54:00 Test Item Value Reference Range Interpretation Comments Monocytes (test code = Monocytes) 9.0 2.0-12.0 N [facility] HospitalKjaxsxaZVRWINFEUL0903-00-82 10:54:00 Test Item Value Reference Range Interpretation Comments Eosinophils (test code = 2.4 See_Comment N [A utomated message] The Eosinophils) system which ge nerated this result tra nsmitted reference range : <=4.0. The reference r leo was not used to int erpret this result as normal/abnormal . [facility] HospitalGkjdvfnSYLDQAFJNA8254-69-06 10:54:00 Test Item Value Reference Range Interpretation Comments Monocytes # (test code 0.4 See_Comment N [Aut omated message] The = Monocytes #) system which generated this result tra nsmitted reference range : <=0.8. The reference r leo was not used to int erpret this result as normal/abnormal . [facility] HospitalOxkvxjmJBGXBJFNTY6233-32-83 10:54:00 Test Item Value Reference Range Interpretation Comments Lymphocytes # (test code = Lymphocytes 2.0 1.0-5.5 N #) [facility] HospitalWawoszcQCYDZGBIKH6308-25-74 10:54:00 Test Item Value Reference Range Interpretation Comments Lymphocytes (test code = Lymphocytes) 42.8 20.0-40.0 H [facility] HospitalVmrpkokYYICOAKOJE4567-48-71 10:54:00 Test Item Value Reference Range Interpretation Comments Segs (test code = Segs) 45.4 45.0-75.0 N [facility] CenterDhpmiarAOSBOVYVM7315-96-94 10:54:00 Test Item Value Reference Range Interpretation Comments CO2 (test code = CO2) 27 24-32 N [facility] CenterRipxtrxPJDTXTIZM0584-40-03 10:54:00 Test Item Value Reference Range Interpretation Comments Chloride Lvl (test code = Chloride Lvl) 104 95-109 N [facility] CenterWvnwjieIBWWHPNVL6993-86-28 10:54:00 Test Item Value Reference Range Interpretation Comments Creatinine Lvl (test code = Creatinine 0.5 0.5-1.4 N Lvl) [facility] CenterWrurzibGHXVRVOJN8807-13-33 10:54:00 Test Item Value Reference Range Interpretation Comments BUN (test code = BUN) 10 7-22 N [facility] CenterRfvexjdCVSFHBNOD9577-38-32 10:54:00 Test Item Value Reference Range Interpretation Comments Potassium Lvl (test code = Potassium 4.1 3.5-5.1 N Lvl) [facility] CenterMuwciqmNPWFZNTNZ4447-55-13 10:54:00 Test Item Value Reference Range Interpretation Comments Sodium Lvl (test code = Sodium Lvl) 141 135-145 N [facility] CenterGnafducMFGOMGRMF0285-02-24 10:54:00 Test Item Value Reference Range Interpretation Comments Glucose Lvl (test code = Glucose Lvl) 83 [facility] CenterShduuryWLEYEFETL0982-77-31 10:54:00 Test Item Value Reference Range Interpretation Comments Calcium Lvl (test code = Calcium Lvl) 8.4 8.5-10.5 L [facility] CenterHnmfclpCKWROZAGP2155-06-53 10:54:00 Test Item Value Reference Range Interpretation Comments AGAP (test code = AGAP) 14.1 10.0-20.0 N [facility] HospitalDnbvcwrJPWTYDRHYC9093-26-07 10:54:00 Test Item Value Reference Range Interpretation Comments Hct (test code = Hct) 35.5 36.0-48.0 L [facility] HospitalYvtlsxsKGTYVGYFSQ2105-64-66 10:54:00 Test Item Value Reference Range Interpretation Comments WBC (test code = WBC) 4.7 3.7-10.4 N [facility] HospitalVzkbczfYZDLIGNGZO3837-95-24 10:54:00 Test Item Value Reference Range Interpretation Comments MCV (test code = MCV) 92.6 81.0-99.0 N [facility] HospitalCmukjchQOCWEIUBNN3427-34-81 10:54:00 Test Item Value Reference Range Interpretation Comments MCH (test code = MCH) 31.4 pg 27.0-31.0 H [facility] HospitalWubetplLZMYZFTECE7166-99-97 10:54:00 Test Item Value Reference Range Interpretation Comments RBC (test code = RBC) 3.84 4.20-5.40 L [facility] HospitalCuiauyxPKAHFPWJEN1953-05-66 10:54:00 Test Item Value Reference Range Interpretation Comments Hgb (test code = Hgb) 12.1 12.0-16.0 N [facility] HospitalLqrzmkqLUGPSKXWJT2138-17-93 10:54:00 Test Item Value Reference Range Interpretation Comments Platelet (test code = Platelet) 287 133-450 N [facility] HospitalXlwewyxQYUGHKEMJR9019-60-62 10:54:00 Test Item Value Reference Range Interpretation Comments RDW (test code = RDW) 12.7 11.5-14.5 N [facility] HospitalJnbydglRBBRZADYZO0663-74-12 10:54:00 Test Item Value Reference Range Interpretation Comments MCHC (test code = MCHC) 33.9 32.0-36.0 N [facility] HospitalJwetxulQOBEPTJCBV8650-93-86 10:54:00 Test Item Value Reference Range Interpretation Comments MPV (test code = MPV) 7.2 7.4-10.4 L [facility] HospitalTrlirquVRNEWTCSWW5401-58-75 10:54:00 Test Item Value Reference Range Interpretation Comments INR (test code = INR) 0.95 0.85-1.17 N [facility] HospitalTgzlzopORKPYATHGO4893-42-54 10:54:00 Test Item Value Reference Range Interpretation Comments PT (test code = PT) 12.7 s 12.0-14.7 N [facility] HospitalPvwvmpaFAHFUKEOFJ5043-01-48 10:54:00 Test Item Value Reference Range Interpretation Comments PTT (test code = PTT) 28.5 s 22.9-35.8 N [facility] HospitalFontlpuLGEELUARBO0426-03-90 10:54:00 Test Item Value Reference Range Interpretation Comments Eosinophils # (test code 0.1 See_Comment N [A utomated message] The = Eosinophils #) system whic h generated this result tra nsmitted reference range : <=0.5. The reference r leo was not used to int erpret this result as normal/abnormal . [facility] HospitalKkujdxxSVXTMQPBKL6523-24-35 10:54:00 Test Item Value Reference Range Interpretation Comments Basophils # (test code 0.0 See_Comment N [Aut omated message] The = Basophils #) system which generated this result tra nsmitted reference range : <=0.2. The reference r leo was not used to int erpret this result as normal/abnormal . [facility] HospitalHhxtrvnRMTCGBDFSH1308-54-25 10:54:00 Test Item Value Reference Range Interpretation Comments Basophils (test code = 0.4 See_Comment N [Aut omated message] The Basophils) system which ge nerated this result tra nsmitted reference range : <=1.0. The reference r leo was not used to int erpret this result as normal/abnormal . [facility] HospitalAhbmimgIRTGUXCDPF8542-60-83 10:54:00 Test Item Value Reference Range Interpretation Comments Segs-Bands # (test code = Segs-Bands #) 2.1 1.5-8.1 N [facility] HospitalUfvwsfzMEEXHSWLWH0206-45-90 10:54:00 Test Item Value Reference Range Interpretation Comments Monocytes (test code = Monocytes) 9.0 2.0-12.0 N [facility] HospitalIdqnwdjJVBSCNXFLN5837-59-39 10:54:00 Test Item Value Reference Range Interpretation Comments Eosinophils (test code = 2.4 See_Comment N [A utomated message] The Eosinophils) system which ge nerated this result tra nsmitted reference range : <=4.0. The reference r leo was not used to int erpret this result as normal/abnormal . [facility] HospitalZvpwsjxPMOMCYYRQE4160-07-50 10:54:00 Test Item Value Reference Range Interpretation Comments Monocytes # (test code 0.4 See_Comment N [Aut omated message] The = Monocytes #) system which generated this result tra nsmitted reference range : <=0.8. The reference r leo was not used to int erpret this result as normal/abnormal . [facility] HospitalZffieqbTYRCKZIJLD1837-88-32 10:54:00 Test Item Value Reference Range Interpretation Comments Lymphocytes # (test code = Lymphocytes 2.0 1.0-5.5 N #) [facility] HospitalApbizbsKDQNKKFUZW2051-00-98 10:54:00 Test Item Value Reference Range Interpretation Comments Lymphocytes (test code = Lymphocytes) 42.8 20.0-40.0 H [facility] HospitalAreforaDOAIHYJMFE5028-71-32 10:54:00 Test Item Value Reference Range Interpretation Comments Segs (test code = Segs) 45.4 45.0-75.0 N [facility] CenterPokuavoBCCULOKDH3331-22-13 10:54:00 Test Item Value Reference Range Interpretation Comments CO2 (test code = CO2) 27 24-32 N [facility] CenterBmpfpfwGQUMISYKC5668-15-06 10:54:00 Test Item Value Reference Range Interpretation Comments Chloride Lvl (test code = Chloride Lvl) 104 95-109 N [facility] CenterZvuvlhdAGFHJKDRQ0925-10-64 10:54:00 Test Item Value Reference Range Interpretation Comments Creatinine Lvl (test code = Creatinine 0.5 0.5-1.4 N Lvl) [facility] CenterJbaetfgXOLBTZIHH3993-92-43 10:54:00 Test Item Value Reference Range Interpretation Comments BUN (test code = BUN) 10 7-22 N [facility] CenterKyhwyriCCTJLVEYO0528-04-52 10:54:00 Test Item Value Reference Range Interpretation Comments Potassium Lvl (test code = Potassium 4.1 3.5-5.1 N Lvl) [facility] CenterVsjmfopQYBVBUEPB5978-26-37 10:54:00 Test Item Value Reference Range Interpretation Comments Sodium Lvl (test code = Sodium Lvl) 141 135-145 N [facility] CenterNivickjBBVSTGDJR3897-44-97 10:54:00 Test Item Value Reference Range Interpretation Comments Glucose Lvl (test code = Glucose Lvl) 83 [facility] CenterYmhoyihWLTBMITHB0513-84-45 10:54:00 Test Item Value Reference Range Interpretation Comments Calcium Lvl (test code = Calcium Lvl) 8.4 8.5-10.5 L [facility] CenterQofuopvLCMTAIEEW7710-58-59 10:54:00 Test Item Value Reference Range Interpretation Comments AGAP (test code = AGAP) 14.1 10.0-20.0 N [facility] HospitalNpfdvwlXOWCXEBZOH1889-75-04 10:54:00 Test Item Value Reference Range Interpretation Comments Hct (test code = Hct) 35.5 36.0-48.0 L [facility] HospitalTkvhvfuUVFYSQLDDZ5111-79-96 10:54:00 Test Item Value Reference Range Interpretation Comments WBC (test code = WBC) 4.7 3.7-10.4 N [facility] HospitalSnsjgeeWBSQFLQQGB9479-89-07 10:54:00 Test Item Value Reference Range Interpretation Comments MCV (test code = MCV) 92.6 81.0-99.0 N [facility] HospitalZuasgjrVGFAMQBTEQ6495-99-90 10:54:00 Test Item Value Reference Range Interpretation Comments MCH (test code = MCH) 31.4 pg 27.0-31.0 H [facility] HospitalZfxvjncEPVTBMUADH3480-65-60 10:54:00 Test Item Value Reference Range Interpretation Comments RBC (test code = RBC) 3.84 4.20-5.40 L [facility] HospitalPfehwfjHWUBAXNOUM5780-30-31 10:54:00 Test Item Value Reference Range Interpretation Comments Hgb (test code = Hgb) 12.1 12.0-16.0 N [facility] HospitalCpmkiccODOAYCXPEM9742-99-49 10:54:00 Test Item Value Reference Range Interpretation Comments Platelet (test code = Platelet) 287 133-450 N [facility] HospitalXufdmnxYRGCMFPUXH0113-52-81 10:54:00 Test Item Value Reference Range Interpretation Comments RDW (test code = RDW) 12.7 11.5-14.5 N [facility] HospitalHuwkcdoKQEQHIQLGR8553-01-92 10:54:00 Test Item Value Reference Range Interpretation Comments MCHC (test code = MCHC) 33.9 32.0-36.0 N [facility] HospitalAuzcrfzZQTORNPAQB7859-02-99 10:54:00 Test Item Value Reference Range Interpretation Comments MPV (test code = MPV) 7.2 7.4-10.4 L [facility] HospitalNrsadoqXWZORYFPKH9423-06-66 10:54:00 Test Item Value Reference Range Interpretation Comments INR (test code = INR) 0.95 0.85-1.17 N [facility] HospitalOtkanevEUMGIBKBVU7282-09-08 10:54:00 Test Item Value Reference Range Interpretation Comments PT (test code = PT) 12.7 s 12.0-14.7 N [facility] HospitalOjdiibrFHNJXEYQCD0862-57-31 10:54:00 Test Item Value Reference Range Interpretation Comments PTT (test code = PTT) 28.5 s 22.9-35.8 N [facility] HospitalCphsccoHJYGRWFJGQ1675-95-60 10:54:00 Test Item Value Reference Range Interpretation Comments Eosinophils # (test code 0.1 See_Comment N [A utomated message] The = Eosinophils #) system whic h generated this result tra nsmitted reference range : <=0.5. The reference r leo was not used to int erpret this result as normal/abnormal . [facility] HospitalWvjzbhfDDUWGERSQO0132-76-05 10:54:00 Test Item Value Reference Range Interpretation Comments Basophils # (test code 0.0 See_Comment N [Aut omated message] The = Basophils #) system which generated this result tra nsmitted reference range : <=0.2. The reference r leo was not used to int erpret this result as normal/abnormal . [facility] HospitalEpxuykfZMFGFSKADZ4243-09-37 10:54:00 Test Item Value Reference Range Interpretation Comments Basophils (test code = 0.4 See_Comment N [Aut omated message] The Basophils) system which ge nerated this result tra nsmitted reference range : <=1.0. The reference r leo was not used to int erpret this result as normal/abnormal . [facility] HospitalHkesmkuZOGUTTIMIA0184-79-04 10:54:00 Test Item Value Reference Range Interpretation Comments Segs-Bands # (test code = Segs-Bands #) 2.1 1.5-8.1 N [facility] HospitalJpafcfmPWJDGVRMKW1949-11-32 10:54:00 Test Item Value Reference Range Interpretation Comments Monocytes (test code = Monocytes) 9.0 2.0-12.0 N [facility] HospitalVmbfmmlGCNBHIMNNK9983-01-50 10:54:00 Test Item Value Reference Range Interpretation Comments Eosinophils (test code = 2.4 See_Comment N [A utomated message] The Eosinophils) system which ge nerated this result tra nsmitted reference range : <=4.0. The reference r leo was not used to int erpret this result as normal/abnormal . [facility] HospitalHdlajmlJMGLWJTLQD7310-72-72 10:54:00 Test Item Value Reference Range Interpretation Comments Monocytes # (test code 0.4 See_Comment N [Aut omated message] The = Monocytes #) system which generated this result tra nsmitted reference range : <=0.8. The reference r leo was not used to int erpret this result as normal/abnormal . [facility] HospitalEbyaelxIBVWXTAOGG4345-33-86 10:54:00 Test Item Value Reference Range Interpretation Comments Lymphocytes # (test code = Lymphocytes 2.0 1.0-5.5 N #) [facility] HospitalShhgbwfWEXSWVNJEC9659-90-93 10:54:00 Test Item Value Reference Range Interpretation Comments Lymphocytes (test code = Lymphocytes) 42.8 20.0-40.0 H [facility] HospitalCiiurgfUBXBARPJYI1740-26-19 10:54:00 Test Item Value Reference Range Interpretation Comments Segs (test code = Segs) 45.4 45.0-75.0 N [facility] CenterUsgarwzGARXTGGTZ8575-89-01 10:02:00 Test Item Value Reference Range Interpretation Comments Chloride Lvl (test code = Chloride Lvl) 105 95-109 N [facility] CenterZjbqlcnUFTENMYXV2700-09-46 10:02:00 Test Item Value Reference Range Interpretation Comments Potassium Lvl (test code = Potassium 4.1 3.5-5.1 N Lvl) [facility] CenterBaicuzdGZRKCJIMH1176-12-40 10:02:00 Test Item Value Reference Range Interpretation Comments Sodium Lvl (test code = Sodium Lvl) 143 135-145 N [facility] CenterInwfungFSSENCSQT9535-99-25 10:02:00 Test Item Value Reference Range Interpretation Comments CO2 (test code = CO2) 29 24-32 N [facility] CenterHbztwwqUUOXDBUTR0469-14-60 10:02:00 Test Item Value Reference Range Interpretation Comments Calcium Lvl (test code = Calcium Lvl) 8.7 8.5-10.5 N [facility] CenterApeinixNBBTPXOZK1101-57-33 10:02:00 Test Item Value Reference Range Interpretation Comments BUN (test code = BUN) 6 7-22 L [facility] CenterRqsgxkaUBETWIAKL1509-99-03 10:02:00 Test Item Value Reference Range Interpretation Comments Creatinine Lvl (test code = Creatinine 0.6 0.5-1.4 N Lvl) [facility] CenterZssyazvAVKJMDQNQ2731-10-98 10:02:00 Test Item Value Reference Range Interpretation Comments Glucose Lvl (test code = Glucose Lvl) 118 [facility] CenterVnkeqcrUGXUMDRUG9224-20-12 10:02:00 Test Item Value Reference Range Interpretation Comments AGAP (test code = AGAP) 13.1 10.0-20.0 N [facility] HospitalGbtfdwvPLWFPWQJWR9050-93-46 10:02:00 Test Item Value Reference Range Interpretation Comments Basophils # (test code 0.0 See_Comment N [Aut omated message] The = Basophils #) system which generated this result tra nsmitted reference range : <=0.2. The reference r leo was not used to int erpret this result as normal/abnormal . [facility] HospitalJccmhbvHQWHZGOBKB1855-21-15 10:02:00 Test Item Value Reference Range Interpretation Comments Monocytes # (test code 0.3 See_Comment N [Aut omated message] The = Monocytes #) system which generated this result tra nsmitted reference range : <=0.8. The reference r leo was not used to int erpret this result as normal/abnormal . [facility] HospitalRzsqnfkHLPIIILCES5126-89-06 10:02:00 Test Item Value Reference Range Interpretation Comments Eosinophils # (test code 0.1 See_Comment N [A utomated message] The = Eosinophils #) system whic h generated this result tra nsmitted reference range : <=0.5. The reference r leo was not used to int erpret this result as normal/abnormal . [facility] HospitalHxpbvsuFHQWCKBEWR5507-90-62 10:02:00 Test Item Value Reference Range Interpretation Comments Segs-Bands # (test code = Segs-Bands #) 2.8 1.5-8.1 N [facility] HospitalYabtcbxOWZFBSNZMS1433-26-81 10:02:00 Test Item Value Reference Range Interpretation Comments Lymphocytes # (test code = Lymphocytes 1.7 1.0-5.5 N #) [facility] HospitalDizxcsjCVNLGTFOCG1468-94-00 10:02:00 Test Item Value Reference Range Interpretation Comments Basophils (test code = 0.6 See_Comment N [Aut omated message] The Basophils) system which ge nerated this result tra nsmitted reference range : <=1.0. The reference r leo was not used to int erpret this result as normal/abnormal . [facility] HospitalSxljpchCNTOLKXUHQ2454-43-85 10:02:00 Test Item Value Reference Range Interpretation Comments Monocytes (test code = Monocytes) 6.9 2.0-12.0 N [facility] HospitalKzfflnpCOPXVMAZPX9882-24-47 10:02:00 Test Item Value Reference Range Interpretation Comments Eosinophils (test code = 2.0 See_Comment N [A utomated message] The Eosinophils) system which ge nerated this result tra nsmitted reference range : <=4.0. The reference r leo was not used to int erpret this result as normal/abnormal . [facility] HospitalQdrlhokLGLIOHZEPI7352-68-98 10:02:00 Test Item Value Reference Range Interpretation Comments Segs (test code = Segs) 55.8 45.0-75.0 N [facility] HospitalYycvmbfJTHHEIIXHZ7026-37-15 10:02:00 Test Item Value Reference Range Interpretation Comments Lymphocytes (test code = Lymphocytes) 34.7 20.0-40.0 N [facility] HospitalFozgivpOLYICAYPQW4956-15-76 10:02:00 Test Item Value Reference Range Interpretation Comments PTT (test code = PTT) 32.2 s 22.9-35.8 N [facility] HospitalJowfzbsAEBOCRJYPP6640-22-28 10:02:00 Test Item Value Reference Range Interpretation Comments PT (test code = PT) 13.3 s 12.0-14.7 N [facility] HospitalKfszomfOALVSGDYCF7045-82-54 10:02:00 Test Item Value Reference Range Interpretation Comments INR (test code = INR) 1.01 0.85-1.17 N [facility] HospitalIjsjvbjYYFAIBAKAS2176-06-69 10:02:00 Test Item Value Reference Range Interpretation Comments Hct (test code = Hct) 27.5 36.0-48.0 L [facility] HospitalXaivhglEGVGOZDQQT9004-22-87 10:02:00 Test Item Value Reference Range Interpretation Comments RBC (test code = RBC) 3.34 4.20-5.40 L [facility] HospitalCwydcioNBZLNCCMTU4583-36-88 10:02:00 Test Item Value Reference Range Interpretation Comments Hgb (test code = Hgb) 9.7 12.0-16.0 L [facility] HospitalMgtnewuDNFXYOPEMJ4519-41-72 10:02:00 Test Item Value Reference Range Interpretation Comments WBC (test code = WBC) 5.0 3.7-10.4 N [facility] HospitalVyqqgfuRZAJMAYSMJ8335-34-10 10:02:00 Test Item Value Reference Range Interpretation Comments MPV (test code = MPV) 9.2 7.4-10.4 N [facility] HospitalSysvhfuZJEJTHRCWA7704-24-49 10:02:00 Test Item Value Reference Range Interpretation Comments Platelet (test code = Platelet) 240 133-450 N [facility] HospitalQwlzjuaWZKGKPTQGQ0583-82-99 10:02:00 Test Item Value Reference Range Interpretation Comments RDW (test code = RDW) 14.3 11.5-14.5 N [facility] HospitalKbiwaknCGGZWLNTGT3736-88-65 10:02:00 Test Item Value Reference Range Interpretation Comments MCHC (test code = MCHC) 35.2 32.0-36.0 N [facility] HospitalOsdmnvvXMMMJKCLLF7502-82-32 10:02:00 Test Item Value Reference Range Interpretation Comments MCH (test code = MCH) 28.9 pg 27.0-31.0 N [facility] HospitalZeqepayFAESFKRNBB5016-02-24 10:02:00 Test Item Value Reference Range Interpretation Comments MCV (test code = MCV) 82.1 81.0-99.0 N [facility] CenterNyhnexvEFMYORRZQ3432-68-78 10:02:00 Test Item Value Reference Range Interpretation Comments Chloride Lvl (test code = Chloride Lvl) 105 95-109 N [facility] CenterVmsejeaCSJWGRNWB1292-61-32 10:02:00 Test Item Value Reference Range Interpretation Comments Potassium Lvl (test code = Potassium 4.1 3.5-5.1 N Lvl) [facility] CenterVfvweipAHYQOUFFE6207-16-66 10:02:00 Test Item Value Reference Range Interpretation Comments Sodium Lvl (test code = Sodium Lvl) 143 135-145 N [facility] CenterYdfqmhzJWBWPCDIS0396-75-19 10:02:00 Test Item Value Reference Range Interpretation Comments CO2 (test code = CO2) 29 24-32 N [facility] CenterZgyxkzzJBTLQFRGI6195-68-08 10:02:00 Test Item Value Reference Range Interpretation Comments Calcium Lvl (test code = Calcium Lvl) 8.7 8.5-10.5 N [facility] CenterYrzcykaYXAXAZLEO2063-24-62 10:02:00 Test Item Value Reference Range Interpretation Comments BUN (test code = BUN) 6 7-22 L [facility] CenterRrhrjmiJGSPGXWRG8336-55-40 10:02:00 Test Item Value Reference Range Interpretation Comments Creatinine Lvl (test code = Creatinine 0.6 0.5-1.4 N Lvl) [facility] CenterExunskiWTBYCQDPF5816-23-96 10:02:00 Test Item Value Reference Range Interpretation Comments Glucose Lvl (test code = Glucose Lvl) 118 [facility] CenterUfgfhqwYNMRACNXR3502-90-15 10:02:00 Test Item Value Reference Range Interpretation Comments AGAP (test code = AGAP) 13.1 10.0-20.0 N [facility] HospitalMuupnzmVFOQCHEPXA0575-26-07 10:02:00 Test Item Value Reference Range Interpretation Comments Basophils # (test code 0.0 See_Comment N [Aut omated message] The = Basophils #) system which generated this result tra nsmitted reference range : <=0.2. The reference r leo was not used to int erpret this result as normal/abnormal . [facility] HospitalNdqfcwsIUVRBPXIXX4346-20-11 10:02:00 Test Item Value Reference Range Interpretation Comments Monocytes # (test code 0.3 See_Comment N [Aut omated message] The = Monocytes #) system which generated this result tra nsmitted reference range : <=0.8. The reference r leo was not used to int erpret this result as normal/abnormal . [facility] HospitalVwirogtGZFYNKGKDS6735-85-16 10:02:00 Test Item Value Reference Range Interpretation Comments Eosinophils # (test code 0.1 See_Comment N [A utomated message] The = Eosinophils #) system whic h generated this result tra nsmitted reference range : <=0.5. The reference r leo was not used to int erpret this result as normal/abnormal . [facility] HospitalDrivbsvXMISBABUCV1696-92-73 10:02:00 Test Item Value Reference Range Interpretation Comments Segs-Bands # (test code = Segs-Bands #) 2.8 1.5-8.1 N [facility] HospitalInaopcjYURGPAMQOE0541-43-62 10:02:00 Test Item Value Reference Range Interpretation Comments Lymphocytes # (test code = Lymphocytes 1.7 1.0-5.5 N #) [facility] HospitalDlfhxalUUTJDHCVKI5119-19-32 10:02:00 Test Item Value Reference Range Interpretation Comments Basophils (test code = 0.6 See_Comment N [Aut omated message] The Basophils) system which ge nerated this result tra nsmitted reference range : <=1.0. The reference r leo was not used to int erpret this result as normal/abnormal . [facility] HospitalVvioavuSVFTOTVYUT1628-64-59 10:02:00 Test Item Value Reference Range Interpretation Comments Monocytes (test code = Monocytes) 6.9 2.0-12.0 N [facility] HospitalOkpnjyuWRKBKJQCHP9441-14-41 10:02:00 Test Item Value Reference Range Interpretation Comments Eosinophils (test code = 2.0 See_Comment N [A utomated message] The Eosinophils) system which ge nerated this result tra nsmitted reference range : <=4.0. The reference r leo was not used to int erpret this result as normal/abnormal . [facility]GicwgfxWJNBMNVEJD1133-18-91 10:02:00 Test Item Value Reference Range Interpretation Comments Segs (test code = Segs) 55.8 45.0-75.0 N [facility] HospitalLyvokjyDRRJEDHPRJ5337-51-81 10:02:00 Test Item Value Reference Range Interpretation Comments Lymphocytes (test code = Lymphocytes) 34.7 20.0-40.0 N [facility] HospitalAqmzhobLSMMINVSNT3649-27-43 10:02:00 Test Item Value Reference Range Interpretation Comments PTT (test code = PTT) 32.2 s 22.9-35.8 N [facility] HospitalZmgqxweLMTCYTUFZQ6227-46-31 10:02:00 Test Item Value Reference Range Interpretation Comments PT (test code = PT) 13.3 s 12.0-14.7 N [facility] HospitalPpqswqeAVSXVFIGZC4567-08-35 10:02:00 Test Item Value Reference Range Interpretation Comments INR (test code = INR) 1.01 0.85-1.17 N [facility] HospitalIwtxgsdVDGFDURZWY0207-55-82 10:02:00 Test Item Value Reference Range Interpretation Comments Hct (test code = Hct) 27.5 36.0-48.0 L [facility] HospitalDzevyqwBDFGUMTZXH9030-38-91 10:02:00 Test Item Value Reference Range Interpretation Comments RBC (test code = RBC) 3.34 4.20-5.40 L [facility] HospitalZrtwbdzHORFILYRSY1761-13-97 10:02:00 Test Item Value Reference Range Interpretation Comments Hgb (test code = Hgb) 9.7 12.0-16.0 L [facility] HospitalYdyslkqFIUFYKWUPE1156-55-89 10:02:00 Test Item Value Reference Range Interpretation Comments WBC (test code = WBC) 5.0 3.7-10.4 N [facility] HospitalQkruxdlKDXKRUIXQM4999-87-35 10:02:00 Test Item Value Reference Range Interpretation Comments MPV (test code = MPV) 9.2 7.4-10.4 N [facility] HospitalVsjkuusNISPOGZMQP1503-60-53 10:02:00 Test Item Value Reference Range Interpretation Comments Platelet (test code = Platelet) 240 133-450 N [facility] HospitalJjbpjkfOMGFHFXAXH9445-74-04 10:02:00 Test Item Value Reference Range Interpretation Comments RDW (test code = RDW) 14.3 11.5-14.5 N [facility] HospitalKqivzklRSTGJRMXOM5767-01-31 10:02:00 Test Item Value Reference Range Interpretation Comments MCHC (test code = MCHC) 35.2 32.0-36.0 N [facility] HospitalZrusyymNFPMEMQXKW2026-90-53 10:02:00 Test Item Value Reference Range Interpretation Comments MCH (test code = MCH) 28.9 pg 27.0-31.0 N [facility] HospitalMqaqsywBPGLFLSSDU2372-47-71 10:02:00 Test Item Value Reference Range Interpretation Comments MCV (test code = MCV) 82.1 81.0-99.0 N [facility]EeoqhfyNMWICOEBQ0233-61-89 10:02:00 Test Item Value Reference Range Interpretation Comments Chloride Lvl (test code = Chloride Lvl) 105 95-109 N [facility] CenterCdcdfimKLSQKBKGY3345-92-56 10:02:00 Test Item Value Reference Range Interpretation Comments Potassium Lvl (test code = Potassium 4.1 3.5-5.1 N Lvl) [facility] CenterKnixqqhBNZLVJEQT9047-84-26 10:02:00 Test Item Value Reference Range Interpretation Comments Sodium Lvl (test code = Sodium Lvl) 143 135-145 N [facility] CenterZoywjdnKINEASQYQ6084-17-41 10:02:00 Test Item Value Reference Range Interpretation Comments CO2 (test code = CO2) 29 24-32 N [facility] CenterIhkaeaeOYEGVISSB4428-42-80 10:02:00 Test Item Value Reference Range Interpretation Comments Calcium Lvl (test code = Calcium Lvl) 8.7 8.5-10.5 N [facility] CenterUuayprtMTMPECGXZ2067-99-42 10:02:00 Test Item Value Reference Range Interpretation Comments BUN (test code = BUN) 6 7-22 L [facility] CenterLgzogxhZOESRHGRW4822-35-40 10:02:00 Test Item Value Reference Range Interpretation Comments Creatinine Lvl (test code = Creatinine 0.6 0.5-1.4 N Lvl) [facility] CenterJundnjaULXNMPAZY2762-83-58 10:02:00 Test Item Value Reference Range Interpretation Comments Glucose Lvl (test code = Glucose Lvl) 118 [facility] CenterCeglnwgLAVBFXZVT7295-64-86 10:02:00 Test Item Value Reference Range Interpretation Comments AGAP (test code = AGAP) 13.1 10.0-20.0 N [facility] HospitalJlmciyqFYNKWEBKDA4169-63-02 10:02:00 Test Item Value Reference Range Interpretation Comments Basophils # (test code 0.0 See_Comment N [Aut omated message] The = Basophils #) system which generated this result tra nsmitted reference range : <=0.2. The reference r leo was not used to int erpret this result as normal/abnormal . [facility] HospitalZtemwmrDQSXVPAWBJ7872-99-81 10:02:00 Test Item Value Reference Range Interpretation Comments Monocytes # (test code 0.3 See_Comment N [Aut omated message] The = Monocytes #) system which generated this result tra nsmitted reference range : <=0.8. The reference r leo was not used to int erpret this result as normal/abnormal . [facility] HospitalIvlqyywIPUJBYGUFQ9282-61-81 10:02:00 Test Item Value Reference Range Interpretation Comments Eosinophils # (test code 0.1 See_Comment N [A utomated message] The = Eosinophils #) system whic h generated this result tra nsmitted reference range : <=0.5. The reference r leo was not used to int erpret this result as normal/abnormal . [facility] HospitalVcbfrmnIGUTNOYWOB8021-61-27 10:02:00 Test Item Value Reference Range Interpretation Comments Segs-Bands # (test code = Segs-Bands #) 2.8 1.5-8.1 N [facility] HospitalXrnqaqgUPJGSJWMPN0982-27-90 10:02:00 Test Item Value Reference Range Interpretation Comments Lymphocytes # (test code = Lymphocytes 1.7 1.0-5.5 N #) [facility] HospitalUgukrcdMPHSZFFTFX7110-89-58 10:02:00 Test Item Value Reference Range Interpretation Comments Basophils (test code = 0.6 See_Comment N [Aut omated message] The Basophils) system which ge nerated this result tra nsmitted reference range : <=1.0. The reference r leo was not used to int erpret this result as normal/abnormal . [facility] HospitalCdnyhizQTPXZZRNUT4605-33-86 10:02:00 Test Item Value Reference Range Interpretation Comments Monocytes (test code = Monocytes) 6.9 2.0-12.0 N [facility] HospitalCvuamjyPHYVZTGEWX7074-47-95 10:02:00 Test Item Value Reference Range Interpretation Comments Eosinophils (test code = 2.0 See_Comment N [A utomated message] The Eosinophils) system which ge nerated this result tra nsmitted reference range : <=4.0. The reference r leo was not used to int erpret this result as normal/abnormal . [facility] HospitalOerslhiNPGPCWBVCH0388-96-13 10:02:00 Test Item Value Reference Range Interpretation Comments Segs (test code = Segs) 55.8 45.0-75.0 N [facility] HospitalFqgkltbSWBTHNCJLI9275-86-93 10:02:00 Test Item Value Reference Range Interpretation Comments Lymphocytes (test code = Lymphocytes) 34.7 20.0-40.0 N [facility] HospitalJirxbfsFNBRNQSMGO8048-70-90 10:02:00 Test Item Value Reference Range Interpretation Comments PTT (test code = PTT) 32.2 s 22.9-35.8 N [facility] HospitalJompusyCELFRYDOGJ9701-80-20 10:02:00 Test Item Value Reference Range Interpretation Comments PT (test code = PT) 13.3 s 12.0-14.7 N [facility] HospitalZtwilodVRAMIMERUG4156-92-28 10:02:00 Test Item Value Reference Range Interpretation Comments INR (test code = INR) 1.01 0.85-1.17 N [facility] HospitalFgfmxzaTMLIKRQHUF9539-73-95 10:02:00 Test Item Value Reference Range Interpretation Comments Hct (test code = Hct) 27.5 36.0-48.0 L [facility] HospitalOxweazwGQGIMXOGLL6521-05-26 10:02:00 Test Item Value Reference Range Interpretation Comments RBC (test code = RBC) 3.34 4.20-5.40 L [facility] HospitalOudzzwbLZJCODYLIH2904-25-30 10:02:00 Test Item Value Reference Range Interpretation Comments Hgb (test code = Hgb) 9.7 12.0-16.0 L [facility] HospitalDgjzxswZITJTOCCPV5763-41-75 10:02:00 Test Item Value Reference Range Interpretation Comments WBC (test code = WBC) 5.0 3.7-10.4 N [facility] HospitalLblqjywGELTBZGJPI3828-50-65 10:02:00 Test Item Value Reference Range Interpretation Comments MPV (test code = MPV) 9.2 7.4-10.4 N [facility] HospitalLnycoadSIWEDUTKJE2850-68-70 10:02:00 Test Item Value Reference Range Interpretation Comments Platelet (test code = Platelet) 240 133-450 N [facility] HospitalWgqqdeyVHPRJURAPU3951-28-07 10:02:00 Test Item Value Reference Range Interpretation Comments RDW (test code = RDW) 14.3 11.5-14.5 N [facility] HospitalMnhkyulGGYKMETHOA8789-88-74 10:02:00 Test Item Value Reference Range Interpretation Comments MCHC (test code = MCHC) 35.2 32.0-36.0 N [facility] HospitalAgwbnstUVOWYGJWOC5703-64-32 10:02:00 Test Item Value Reference Range Interpretation Comments MCH (test code = MCH) 28.9 pg 27.0-31.0 N [facility] HospitalOuisfdwDUIVYDZIKV3052-33-93 10:02:00 Test Item Value Reference Range Interpretation Comments MCV (test code = MCV) 82.1 81.0-99.0 N [facility] CenterDipdodjSJANILTFJ3060-88-75 10:02:00 Test Item Value Reference Range Interpretation Comments Chloride Lvl (test code = Chloride Lvl) 105 95-109 N [facility] CenterKyfkqscTEOSTHOGG5786-75-13 10:02:00 Test Item Value Reference Range Interpretation Comments Potassium Lvl (test code = Potassium 4.1 3.5-5.1 N Lvl) [facility] CenterLffblopBZENJQRFB9253-43-84 10:02:00 Test Item Value Reference Range Interpretation Comments Sodium Lvl (test code = Sodium Lvl) 143 135-145 N [facility] CenterWwqshyaBNXZTNIBN2362-13-60 10:02:00 Test Item Value Reference Range Interpretation Comments CO2 (test code = CO2) 29 24-32 N [facility] CenterZmkzvldUKHOBLNSJ5060-57-96 10:02:00 Test Item Value Reference Range Interpretation Comments Calcium Lvl (test code = Calcium Lvl) 8.7 8.5-10.5 N [facility] CenterPceqrykMSJAPDWDX5518-17-39 10:02:00 Test Item Value Reference Range Interpretation Comments BUN (test code = BUN) 6 7-22 L [facility] CenterLgbwdfzXULPEIRNT0709-33-05 10:02:00 Test Item Value Reference Range Interpretation Comments Creatinine Lvl (test code = Creatinine 0.6 0.5-1.4 N Lvl) [facility] CenterMgmqvjuBSDREWUZE9872-13-07 10:02:00 Test Item Value Reference Range Interpretation Comments Glucose Lvl (test code = Glucose Lvl) 118 [facility] CenterWonnicvVICDPRABI7425-13-09 10:02:00 Test Item Value Reference Range Interpretation Comments AGAP (test code = AGAP) 13.1 10.0-20.0 N [facility] HospitalAuqxcsqIPJYHDOBSV0550-19-18 10:02:00 Test Item Value Reference Range Interpretation Comments Basophils # (test code 0.0 See_Comment N [Aut omated message] The = Basophils #) system which generated this result tra nsmitted reference range : <=0.2. The reference r leo was not used to int erpret this result as normal/abnormal . [facility] HospitalLanudwqYMPUPDEMPN9658-31-67 10:02:00 Test Item Value Reference Range Interpretation Comments Monocytes # (test code 0.3 See_Comment N [Aut omated message] The = Monocytes #) system which generated this result tra nsmitted reference range : <=0.8. The reference r leo was not used to int erpret this result as normal/abnormal . [facility] HospitalVyfjvltIYMQZXEAVH6476-32-63 10:02:00 Test Item Value Reference Range Interpretation Comments Eosinophils # (test code 0.1 See_Comment N [A utomated message] The = Eosinophils #) system whic h generated this result tra nsmitted reference range : <=0.5. The reference r leo was not used to int erpret this result as normal/abnormal . [facility] HospitalZolnhhrVXJKLTRTGA7069-23-22 10:02:00 Test Item Value Reference Range Interpretation Comments Segs-Bands # (test code = Segs-Bands #) 2.8 1.5-8.1 N [facility] HospitalSwtbskfCLPZBWXFHT9818-49-75 10:02:00 Test Item Value Reference Range Interpretation Comments Lymphocytes # (test code = Lymphocytes 1.7 1.0-5.5 N #) [facility] HospitalKjisswwUXNDXTQGMB4979-08-01 10:02:00 Test Item Value Reference Range Interpretation Comments Basophils (test code = 0.6 See_Comment N [Aut omated message] The Basophils) system which ge nerated this result tra nsmitted reference range : <=1.0. The reference r leo was not used to int erpret this result as normal/abnormal . [facility] HospitalOawquuyRIUBAKFNZM3623-84-47 10:02:00 Test Item Value Reference Range Interpretation Comments Monocytes (test code = Monocytes) 6.9 2.0-12.0 N [facility] HospitalAmwsbrcKLJLIKBMYV9150-99-80 10:02:00 Test Item Value Reference Range Interpretation Comments Eosinophils (test code = 2.0 See_Comment N [A utomated message] The Eosinophils) system which ge nerated this result tra nsmitted reference range : <=4.0. The reference r leo was not used to int erpret this result as normal/abnormal . [facility] HospitalSydmqnlTXFHPIHVJZ9909-66-27 10:02:00 Test Item Value Reference Range Interpretation Comments Segs (test code = Segs) 55.8 45.0-75.0 N [facility] HospitalLjqpxepQHZPNAKPNZ2652-10-60 10:02:00 Test Item Value Reference Range Interpretation Comments Lymphocytes (test code = Lymphocytes) 34.7 20.0-40.0 N [facility] HospitalXphkiyiUMOLEFAAFI1076-31-30 10:02:00 Test Item Value Reference Range Interpretation Comments PTT (test code = PTT) 32.2 s 22.9-35.8 N [facility] HospitalRzbpbgrFMBSFEZGEO2591-64-02 10:02:00 Test Item Value Reference Range Interpretation Comments PT (test code = PT) 13.3 s 12.0-14.7 N [place] 563202-03-19 10:02:00 Test Item Value Reference Range Interpretation Comments INR (test code = INR) 1.01 0.85-1.17 N [facility] HospitalLvaooosQNECYYIGWM1797-90-05 10:02:00 Test Item Value Reference Range Interpretation Comments Hct (test code = Hct) 27.5 36.0-48.0 L [facility] HospitalZjutjukLBVWVZUJFI1329-93-95 10:02:00 Test Item Value Reference Range Interpretation Comments RBC (test code = RBC) 3.34 4.20-5.40 L [facility] HospitalGlratncOSVHXOHBGW9542-79-00 10:02:00 Test Item Value Reference Range Interpretation Comments Hgb (test code = Hgb) 9.7 12.0-16.0 L [facility] HospitalQwlpbplSONTWPSYBH6157-59-64 10:02:00 Test Item Value Reference Range Interpretation Comments WBC (test code = WBC) 5.0 3.7-10.4 N [facility] HospitalUlqwqniUKMGQQSAJG3218-79-00 10:02:00 Test Item Value Reference Range Interpretation Comments MPV (test code = MPV) 9.2 7.4-10.4 N [facility] HospitalJqgqsfvHWAGCWECHW0012-13-05 10:02:00 Test Item Value Reference Range Interpretation Comments Platelet (test code = Platelet) 240 133-450 N [facility] HospitalOsojuyaANWOLVRAZW0164-95-05 10:02:00 Test Item Value Reference Range Interpretation Comments RDW (test code = RDW) 14.3 11.5-14.5 N [facility] HospitalIhzkcfdRYGTTZLDDM5154-56-66 10:02:00 Test Item Value Reference Range Interpretation Comments MCHC (test code = MCHC) 35.2 32.0-36.0 N [facility] HospitalDtqngoaCFWGITZWFV5925-66-13 10:02:00 Test Item Value Reference Range Interpretation Comments MCH (test code = MCH) 28.9 pg 27.0-31.0 N [facility] HospitalAjcafvrVXDOMTAJZO0613-32-08 10:02:00 Test Item Value Reference Range Interpretation Comments MCV (test code = MCV) 82.1 81.0-99.0 N [facility] CenterUhhtuaxAASUZYBGH4990-27-18 10:02:00 Test Item Value Reference Range Interpretation Comments Chloride Lvl (test code = Chloride Lvl) 105 95-109 N [facility] CenterSxesfclOAINEDUBV3205-10-51 10:02:00 Test Item Value Reference Range Interpretation Comments Potassium Lvl (test code = Potassium 4.1 3.5-5.1 N Lvl) [facility] CenterMldcvoxGJSMJRNID6294-99-67 10:02:00 Test Item Value Reference Range Interpretation Comments Sodium Lvl (test code = Sodium Lvl) 143 135-145 N [facility] CenterPxsygphCMSZTDODB9478-87-89 10:02:00 Test Item Value Reference Range Interpretation Comments CO2 (test code = CO2) 29 24-32 N [facility] CenterHlipfynPUXHMKLFH1395-22-21 10:02:00 Test Item Value Reference Range Interpretation Comments Calcium Lvl (test code = Calcium Lvl) 8.7 8.5-10.5 N [facility] CenterEjtxbpjSGAYVEIQR0820-92-52 10:02:00 Test Item Value Reference Range Interpretation Comments BUN (test code = BUN) 6 7-22 L [facility] CenterWozvemgLHMWYBROX3636-34-49 10:02:00 Test Item Value Reference Range Interpretation Comments Creatinine Lvl (test code = Creatinine 0.6 0.5-1.4 N Lvl) [facility] CenterBoonwknZPTVQPDBJ9938-07-66 10:02:00 Test Item Value Reference Range Interpretation Comments Glucose Lvl (test code = Glucose Lvl) 118 [facility] CenterUyqmlnyZNFZTVADO8724-47-29 10:02:00 Test Item Value Reference Range Interpretation Comments AGAP (test code = AGAP) 13.1 10.0-20.0 N [facility] HospitalZsxaanjZZJPDOBPMH4930-86-68 10:02:00 Test Item Value Reference Range Interpretation Comments Basophils # (test code 0.0 See_Comment N [Aut omated message] The = Basophils #) system which generated this result tra nsmitted reference range : <=0.2. The reference r leo was not used to int erpret this result as normal/abnormal . [facility] HospitalHqaeijzKJKABOXUYS4403-22-85 10:02:00 Test Item Value Reference Range Interpretation Comments Monocytes # (test code 0.3 See_Comment N [Aut omated message] The = Monocytes #) system which generated this result tra nsmitted reference range : <=0.8. The reference r leo was not used to int erpret this result as normal/abnormal . [facility] HospitalWteordcKISTRTNGXM9288-87-84 10:02:00 Test Item Value Reference Range Interpretation Comments Eosinophils # (test code 0.1 See_Comment N [A utomated message] The = Eosinophils #) system whic h generated this result tra nsmitted reference range : <=0.5. The reference r leo was not used to int erpret this result as normal/abnormal . [facility] HospitalMpdipuhWFRJCVKVMY2648-90-36 10:02:00 Test Item Value Reference Range Interpretation Comments Segs-Bands # (test code = Segs-Bands #) 2.8 1.5-8.1 N [facility] HospitalOpjzsknQXWLZMUQYI7181-19-21 10:02:00 Test Item Value Reference Range Interpretation Comments Lymphocytes # (test code = Lymphocytes 1.7 1.0-5.5 N #) [facility] HospitalWisjjiqIIOFLRGEGP1768-33-57 10:02:00 Test Item Value Reference Range Interpretation Comments Basophils (test code = 0.6 See_Comment N [Aut omated message] The Basophils) system which ge nerated this result tra nsmitted reference range : <=1.0. The reference r leo was not used to int erpret this result as normal/abnormal . [facility] HospitalAkvgffmOOFGBNULMC1321-68-88 10:02:00 Test Item Value Reference Range Interpretation Comments Monocytes (test code = Monocytes) 6.9 2.0-12.0 N [facility] HospitalLkznxqxUNYUTJORNQ3018-43-83 10:02:00 Test Item Value Reference Range Interpretation Comments Eosinophils (test code = 2.0 See_Comment N [A utomated message] The Eosinophils) system which ge nerated this result tra nsmitted reference range : <=4.0. The reference r leo was not used to int erpret this result as normal/abnormal . [facility] HospitalBelsrbhTLMCZPUEIU7303-13-42 10:02:00 Test Item Value Reference Range Interpretation Comments Segs (test code = Segs) 55.8 45.0-75.0 N [facility] HospitalNcnytwxYNJTOJVDDL5054-06-73 10:02:00 Test Item Value Reference Range Interpretation Comments Lymphocytes (test code = Lymphocytes) 34.7 20.0-40.0 N [facility] HospitalFkmgwinKVBJAWGTYZ1396-57-59 10:02:00 Test Item Value Reference Range Interpretation Comments PTT (test code = PTT) 32.2 s 22.9-35.8 N [facility] HospitalSwjwlbmYWUNXVMFTT2857-16-65 10:02:00 Test Item Value Reference Range Interpretation Comments PT (test code = PT) 13.3 s 12.0-14.7 N [facility] HospitalFemhpulKPNBHJXFHE4281-47-41 10:02:00 Test Item Value Reference Range Interpretation Comments INR (test code = INR) 1.01 0.85-1.17 N [facility] HospitalTilavarRPKUYDMSKW0584-19-69 10:02:00 Test Item Value Reference Range Interpretation Comments Hct (test code = Hct) 27.5 36.0-48.0 L [facility] HospitalQfjorbeRQEIYJPMSW7169-89-93 10:02:00 Test Item Value Reference Range Interpretation Comments RBC (test code = RBC) 3.34 4.20-5.40 L [facility] HospitalHtckmajLZWVPHOHGO5064-55-45 10:02:00 Test Item Value Reference Range Interpretation Comments Hgb (test code = Hgb) 9.7 12.0-16.0 L [facility] HospitalSwgkuncOYZEJMRUSV0697-36-90 10:02:00 Test Item Value Reference Range Interpretation Comments WBC (test code = WBC) 5.0 3.7-10.4 N [facility] HospitalAybmxerGNXENBOCGI0261-54-88 10:02:00 Test Item Value Reference Range Interpretation Comments MPV (test code = MPV) 9.2 7.4-10.4 N [facility] HospitalMpvwfdrVADGMFBEFI5486-00-02 10:02:00 Test Item Value Reference Range Interpretation Comments Platelet (test code = Platelet) 240 133-450 N [facility] HospitalMxqvdkzQKEZNONUQN0522-05-72 10:02:00 Test Item Value Reference Range Interpretation Comments RDW (test code = RDW) 14.3 11.5-14.5 N [facility] HospitalDruufuiUPTXFHNWXZ8446-58-76 10:02:00 Test Item Value Reference Range Interpretation Comments MCHC (test code = MCHC) 35.2 32.0-36.0 N [facility] HospitalEzqsileBZICKUGDQO6861-73-79 10:02:00 Test Item Value Reference Range Interpretation Comments MCH (test code = MCH) 28.9 pg 27.0-31.0 N [facility] HospitalAfyyvdlXNRXBQFKFT7979-72-28 10:02:00 Test Item Value Reference Range Interpretation Comments MCV (test code = MCV) 82.1 81.0-99.0 N [facility] CenterZovvollCQICAJSJI6942-76-72 09:24:00 Test Item Value Reference Range Interpretation Comments Magnesium Lvl (test code = Magnesium 2.1 1.8-2.4 N Lvl) [facility] CenterRbdvlszOTVNJFWIZ7608-98-65 09:24:00 Test Item Value Reference Range Interpretation Comments Magnesium Lvl (test code = Magnesium 2.1 1.8-2.4 N Lvl) [facility] CenterCqsrhybLYKGHWFKW7828-55-93 09:24:00 Test Item Value Reference Range Interpretation Comments Magnesium Lvl (test code = Magnesium 2.1 1.8-2.4 N Lvl) [facility] CenterNtilpsvJYEESFHIH1343-72-40 09:24:00 Test Item Value Reference Range Interpretation Comments Magnesium Lvl (test code = Magnesium 2.1 1.8-2.4 N Lvl) [facility] CenterSkzmxdwTDVXIMGBJ1170-16-06 09:24:00 Test Item Value Reference Range Interpretation Comments Magnesium Lvl (test code = Magnesium 2.1 1.8-2.4 N Lvl) [facility]PvgkafdAzsydekqbskn1527-72-15 00:32:00 Test Item Value Reference Range Interpretation Comments Culture: Aspirate/Body Fluid/Tissue (test code = Culture: Aspirate/Body Fluid/Tissue) [facility] DallasMgmfeohTrbwcoeqezwc0012-32-27 00:32:00 Test Item Value Reference Range Interpretation Comments Culture: Anaerobic (test code = Culture: Anaerobic) [facility] DallasBfghgvdPzpyaayozgii2023-09-99 00:32:00 Test Item Value Reference Range Interpretation Comments Culture: Aspirate/Body Fluid/Tissue (test code = Culture: Aspirate/Body Fluid/Tissue) [facility] DallasKadicolEpbdorbhjlsn6160-62-74 00:32:00 Test Item Value Reference Range Interpretation Comments Culture: Anaerobic (test code = Culture: Anaerobic) [facility] DallasNqdhnuqJpniqhiyoqak9685-02-98 00:32:00 Test Item Value Reference Range Interpretation Comments Culture: Aspirate/Body Fluid/Tissue (test code = Culture: Aspirate/Body Fluid/Tissue) [facility] DallasRzoprhwDguthyxtsmus4179-38-31 00:32:00 Test Item Value Reference Range Interpretation Comments Culture: Anaerobic (test code = Culture: Anaerobic) [facility] DallasYrfwllaWlpbvlsdolsd3225-59-61 00:32:00 Test Item Value Reference Range Interpretation Comments Culture: Aspirate/Body Fluid/Tissue (test code = Culture: Aspirate/Body Fluid/Tissue) [facility] DallasKuvpqqlSkxteomzydww8409-75-68 00:32:00 Test Item Value Reference Range Interpretation Comments Culture: Anaerobic (test code = Culture: Anaerobic) [facility] DallasZebcwekFxytmaddyegl7644-90-64 00:32:00 Test Item Value Reference Range Interpretation Comments Culture: Aspirate/Body Fluid/Tissue (test code = Culture: Aspirate/Body Fluid/Tissue) [facility] [place]kjqfzjMtayjwmlhqdn4174-12-01 00:32:00 Test Item Value Reference Range Interpretation Comments Culture: Anaerobic (test code = Culture: Anaerobic) [facility] CenterDiabeqrLKVVIXVYY6822-69-41 17:10:00 Test Item Value Reference Range Interpretation Comments Temp Roberth (test code = Temp Roberth) 37.0 [facility] CenterFxoucygLCGEMAAKK4520-24-94 17:10:00 Test Item Value Reference Range Interpretation Comments O2 Sat Roberth (test code = O2 Sat Roberth) 27.0 40.0-70.0 L [facility] CenterIrtxiwnOXMOYPYFW8378-25-12 17:10:00 Test Item Value Reference Range Interpretation Comments pCO2 Roberth (test code = pCO2 Roberth) 47 38-52 N [facility] CenterGxpskqyPBQDGXKEI1272-57-85 17:10:00 Test Item Value Reference Range Interpretation Comments pH Roberth (test code = pH Roberth) 7.37 7.28-7.42 N [facility] CenterYpqrowvFIAUETHTD3619-14-63 17:10:00 Test Item Value Reference Range Interpretation Comments BE Roberth (test code = 1 See_Comment N [Automa rohit message] The BE Roberth) system which ge nerated this result transmit rohit reference range : <=2. The reference range was not used to interpr et this result as reji l/abnormal. [facility]QitvhwpUOTNPFGVM0452-98-85 17:10:00 Test Item Value Reference Range Interpretation Comments HCO3 Roberth (test code = HCO3 Roberth) 27.2 22.0-26.0 H [facility] CenterUnzerljKKRHXYLCE9886-65-24 17:10:00 Test Item Value Reference Range Interpretation Comments pO2 Roberth (test code = pO2 Roberth) 19 20-49 L [facility] CenterGsdvtwiPIMTTDJGZ9822-38-40 17:10:00 Test Item Value Reference Range Interpretation Comments Temp Roberth (test code = Temp Roberth) 37.0 [facility] CenterRjrehhcRKLSKKOMC8459-41-66 17:10:00 Test Item Value Reference Range Interpretation Comments O2 Sat Roberth (test code = O2 Sat Roberth) 27.0 40.0-70.0 L [facility] CenterZoneidsDLJNGMRYG8204-64-30 17:10:00 Test Item Value Reference Range Interpretation Comments pCO2 Roberth (test code = pCO2 Roberth) 47 38-52 N [facility] CenterYnmfvmwBHBWRIJTH1261-42-30 17:10:00 Test Item Value Reference Range Interpretation Comments pH Roberth (test code = pH Roberth) 7.37 7.28-7.42 N [facility] CenterJejqrnpQFDYSBTYK5160-36-47 17:10:00 Test Item Value Reference Range Interpretation Comments BE Roberth (test code = 1 See_Comment N [Automa rohit message] The BE Roberth) system which ge nerated this result transmit rohit reference range : <=2. The reference range was not used to interpr et this result as reji l/abnormal. [facility] CenterIjyumywDNWAJQCNK1191-14-00 17:10:00 Test Item Value Reference Range Interpretation Comments HCO3 Roberth (test code = HCO3 Roberth) 27.2 22.0-26.0 H [facility] CenterGdkmcmhVEPLCNAKL6919-77-87 17:10:00 Test Item Value Reference Range Interpretation Comments pO2 Roberth (test code = pO2 Roberth) 19 20-49 L [facility] CenterYpnqbdqTOCNPJFLW5446-68-18 17:10:00 Test Item Value Reference Range Interpretation Comments Temp Roberth (test code = Temp Roberth) 37.0 [facility] CenterQhbtgvpQSDYAJCFC0679-92-24 17:10:00 Test Item Value Reference Range Interpretation Comments O2 Sat Roberth (test code = O2 Sat Roberth) 27.0 40.0-70.0 L [facility] CenterJvgxbdfACXPMPEHU2851-40-54 17:10:00 Test Item Value Reference Range Interpretation Comments pCO2 Roberth (test code = pCO2 Roberth) 47 38-52 N [facility] CenterWovxmasCJFHGNIOR4735-51-51 17:10:00 Test Item Value Reference Range Interpretation Comments pH Roberth (test code = pH Roberth) 7.37 7.28-7.42 N [facility] CenterNsbseiaTPRHZPULI7565-37-02 17:10:00 Test Item Value Reference Range Interpretation Comments BE Roberth (test code = 1 See_Comment N [Automa rohit message] The BE Roberth) system which ge nerated this result transmit rohit reference range : <=2. The reference range was not used to interpr et this result as reji l/abnormal. [facility] CenterEnoirbbZNCKUIJGJ1280-46-80 17:10:00 Test Item Value Reference Range Interpretation Comments HCO3 Roberth (test code = HCO3 Roberth) 27.2 22.0-26.0 H [facility] CenterYmtkyksWDCGLCSMY0889-17-04 17:10:00 Test Item Value Reference Range Interpretation Comments pO2 Roberth (test code = pO2 Roberth) 19 20-49 L [facility] CenterGeamndpMUZIVNQFJ1894-85-74 17:10:00 Test Item Value Reference Range Interpretation Comments Temp Roberth (test code = Temp Roberth) 37.0 [facility] CenterEgajyqlXXCGOBDHV8637-98-37 17:10:00 Test Item Value Reference Range Interpretation Comments O2 Sat Roberth (test code = O2 Sat Roberth) 27.0 40.0-70.0 L [facility] CenterEkgplzaIPKHSBDPH4644-66-68 17:10:00 Test Item Value Reference Range Interpretation Comments pCO2 Roberth (test code = pCO2 Roberth) 47 38-52 N [facility] CenterJiusmjcKSPAPSKXN2012-31-42 17:10:00 Test Item Value Reference Range Interpretation Comments pH Orberth (test code = pH Roberth) 7.37 7.28-7.42 N [facility] CenterZvvxckjGWTPDCGVH7202-93-36 17:10:00 Test Item Value Reference Range Interpretation Comments BE Roberth (test code = 1 See_Comment N [Automa rohit message] The BE Roberth) system which ge nerated this result transmit rohit reference range : <=2. The reference range was not used to interpr et this result as reji l/abnormal. [facility] CenterDbmvkuhJOYRUZUBY9869-22-28 17:10:00 Test Item Value Reference Range Interpretation Comments HCO3 Roberth (test code = HCO3 Roberth) 27.2 22.0-26.0 H [facility] CenterXrmnaatMVYKIKTTQ9610-00-21 17:10:00 Test Item Value Reference Range Interpretation Comments pO2 Roberth (test code = pO2 Roberth) 19 20-49 L [facility] CenterVbdkaatECZMTSMOV5425-07-55 17:10:00 Test Item Value Reference Range Interpretation Comments Temp Roberth (test code = Temp Roberth) 37.0 [facility] CenterRirrahxWIBNLHDMB2310-30-10 17:10:00 Test Item Value Reference Range Interpretation Comments O2 Sat Roberth (test code = O2 Sat Roberth) 27.0 40.0-70.0 L [facility] CenterBsebhxcOVMYAXYMJ7427-19-05 17:10:00 Test Item Value Reference Range Interpretation Comments pCO2 Roberth (test code = pCO2 Roberth) 47 38-52 N [facility] CenterSisiqkeFOBIGFTQH7627-52-90 17:10:00 Test Item Value Reference Range Interpretation Comments pH Roberth (test code = pH Roberth) 7.37 7.28-7.42 N [facility] CenterTqpvheiASYAWTNQU6213-76-97 17:10:00 Test Item Value Reference Range Interpretation Comments BE Roberth (test code = 1 See_Comment N [Automa rohit message] The BE Roberth) system which ge nerated this result transmit rohit reference range : <=2. The reference range was not used to interpr et this result as reji l/abnormal. [facility] CenterGsobwwoVDNUQPLQI6924-97-63 17:10:00 Test Item Value Reference Range Interpretation Comments HCO3 Roberth (test code = HCO3 Roberth) 27.2 22.0-26.0 H [facility] CenterQjyrrddUERYMIPBV3188-12-25 17:10:00 Test Item Value Reference Range Interpretation Comments pO2 Roberth (test code = pO2 Roberth) 19 20-49 L [facility] [place]XixrlioJcbeabaiwokb6048-58-05 14:18:00 Test Item Value Reference Range Interpretation Comments Culture: Blood (test code = Culture: Blood) [facility] DallasUitjjswPxkzpabmnnjo1260-72-57 14:18:00 Test Item Value Reference Range Interpretation Comments Culture: Wound/Abscess w/Gram Stain (test code = Culture: Wound/Abscess w/Gram Stain) [facility] DallasAkbrnauZgjwnijcdrsp9080-29-49 14:18:00 Test Item Value Reference Range Interpretation Comments Culture: Blood (test code = Culture: Blood) [facility] DallasCimhkfeUaiirwkbtkzu5685-57-24 14:18:00 Test Item Value Reference Range Interpretation Comments Culture: Wound/Abscess w/Gram Stain (test code = Culture: Wound/Abscess w/Gram Stain) [facility] DallasVesstzeChcveuusvddi7764-36-50 14:18:00 Test Item Value Reference Range Interpretation Comments Culture: Blood (test code = Culture: Blood) [facility] DallasPvkaayfCmoggrhoxacz2751-30-82 14:18:00 Test Item Value Reference Range Interpretation Comments Culture: Wound/Abscess w/Gram Stain (test code = Culture: Wound/Abscess w/Gram Stain) [facility] DallasIyuwvgqKmqyytxyikva1308-60-07 14:18:00 Test Item Value Reference Range Interpretation Comments Culture: Blood (test code = Culture: Blood) [facility] DallasVrpylxxVduhfgygqlvi1091-83-43 14:18:00 Test Item Value Reference Range Interpretation Comments Culture: Wound/Abscess w/Gram Stain (test code = Culture: Wound/Abscess w/Gram Stain) [facility] DallasJneghseOsduhqufdjby4110-83-64 14:18:00 Test Item Value Reference Range Interpretation Comments Culture: Blood (test code = Culture: Blood) [facility] DallasZdlaljdLvjsikuslbey6884-41-93 14:18:00 Test Item Value Reference Range Interpretation Comments Culture: Wound/Abscess w/Gram Stain (test code = Culture: Wound/Abscess w/Gram Stain) [facility] CenterGtwolrnSONJGYQCA2154-46-58 13:09:00 Test Item Value Reference Range Interpretation Comments Lactic Acid Lvl (test code = Lactic 1.0 0.5-2.2 N Acid Lvl) [facility] CenterJymhdrtDOSTVBVXD6094-08-01 13:09:00 Test Item Value Reference Range Interpretation Comments Lactic Acid Lvl (test code = Lactic 1.0 0.5-2.2 N Acid Lvl) [facility] CenterFsufqvaFTJMOXCEF0765-54-86 13:09:00 Test Item Value Reference Range Interpretation Comments Lactic Acid Lvl (test code = Lactic 1.0 0.5-2.2 N Acid Lvl) [facility] CenterMlbeowvJUMLOJLWD1208-11-74 13:09:00 Test Item Value Reference Range Interpretation Comments Lactic Acid Lvl (test code = Lactic 1.0 0.5-2.2 N Acid Lvl) [facility] CenterJgqpofuPJWUCEYXG8400-96-94 13:09:00 Test Item Value Reference Range Interpretation Comments Lactic Acid Lvl (test code = Lactic 1.0 0.5-2.2 N Acid Lvl) [facility] CenterFsetdbdLASBFQYLJ8209-14-26 12:20:00 Test Item Value Reference Range Interpretation Comments U Preg (test code = U Negative (09/01/2011 N Preg) 07:20:00) [facility]BwkjixpZNAHVAQUKO2637-47-72 12:20:00 Test Item Value Reference Range Interpretation Comments UA Sq Epi (test code Occasional /LPF N = UA Sq Epi) (09/01/2011 07:20:00) [facility] [place]anoBajouoaMNZOODBGDZ6788-97-54 12:20:00 Test Item Value Reference Range Interpretation Comments UA Leuk Est (test Negative (09/01/2011 N code = UA Leuk Est) 07:20:00) [facility] [place]anoAfebtsfPNXRHQAWKB0288-29-92 12:20:00 Test Item Value Reference Range Interpretation Comments UA Nitrite (test code Negative (09/01/2011 N = UA Nitrite) 07:20:00) [facility] [place]anoFuwdqigAYEJOWEVVW1697-82-79 12:20:00 Test Item Value Reference Range Interpretation Comments UA Urobilinogen (test code = UA 0.2 0.1-1.0 N Urobilinogen) [facility] [place]anoYrvdtamBYWGNUYFZT0911-53-09 12:20:00 Test Item Value Reference Range Interpretation Comments UA Blood (test code = Negative (09/01/2011 N UA Blood) 07:20:00) [facility] [place]anoCiduultAJFKEIDKTI1693-73-80 12:20:00 Test Item Value Reference Range Interpretation Comments UA Ketones (test code = >=80 mg/dL A UA Ketones) *ABN*(09/01/2011 07:20:00) [facility] [place]anoVpvtqrqUETZZSUPQA5089-71-12 12:20:00 Test Item Value Reference Range Interpretation Comments UA Protein (test code Negative (09/01/2011 N = UA Protein) 07:20:00) [facility] [place]anoXfpygtpEQCCFWSDLE1216-55-92 12:20:00 Test Item Value Reference Range Interpretation Comments UA pH (test code = UA pH) 6.0 1 5.0-8.0 N [facility] [place]anoImxvnunZYYJFMPOVV5321-51-55 12:20:00 Test Item Value Reference Range Interpretation Comments UA Bili (test code = Negative (09/01/2011 N UA Bili) 07:20:00) [facility] CenterZbbyxxgGIOUZOTWIC7261-80-48 12:20:00 Test Item Value Reference Range Interpretation Comments UA Glucose (test code = >=1000 mg/dL A UA Glucose) *ABN*(09/01/2011 07:20:00) [facility] CenterEmqzvwhKZPKJDYIWW0271-25-56 12:20:00 Test Item Value Reference Range Interpretation Comments UA Spec Grav (test code = UA Spec 1.035 1 H Grav) [facility] CenterRomatisGPPKHNFYPI8391-20-67 12:20:00 Test Item Value Reference Range Interpretation Comments UA Turbidity (test code = Clear (09/01/2011 N UA Turbidity) 07:20:00) [facility] CenterXrsrgfcSODHFOLUYM4087-02-10 12:20:00 Test Item Value Reference Range Interpretation Comments UA Color (test code = Yellow *NA*(09/01/2011 UA Color) 07:20:00) [facility] CenterWmqfpkuFBOFRFQQE2136-14-24 12:20:00 Test Item Value Reference Range Interpretation Comments U Preg (test code = U Negative (09/01/2011 N Preg) 07:20:00) [facility] CenterXbtwzvnULENMRSGZW7572-06-99 12:20:00 Test Item Value Reference Range Interpretation Comments UA Sq Epi (test code Occasional /LPF N = UA Sq Epi) (09/01/2011 07:20:00) [facility] CenterMitztslNJPHCXQRNT3889-26-82 12:20:00 Test Item Value Reference Range Interpretation Comments UA Leuk Est (test Negative (09/01/2011 N code = UA Leuk Est) 07:20:00) [facility] CenterWqkacchHDADGLYVDX1539-00-41 12:20:00 Test Item Value Reference Range Interpretation Comments UA Nitrite (test code Negative (09/01/2011 N = UA Nitrite) 07:20:00) [facility] CenterHruzeroZMUIHOZBAH4378-04-91 12:20:00 Test Item Value Reference Range Interpretation Comments UA Urobilinogen (test code = UA 0.2 0.1-1.0 N Urobilinogen) [facility] CenterGjohwhbYAYAEXRUJT3505-39-56 12:20:00 Test Item Value Reference Range Interpretation Comments UA Blood (test code = Negative (09/01/2011 N UA Blood) 07:20:00) [facility] CenterPbyqxihLUJCTPPBGS6914-36-90 12:20:00 Test Item Value Reference Range Interpretation Comments UA Ketones (test code = >=80 mg/dL A UA Ketones) *ABN*(09/01/2011 07:20:00) [facility] [place]anoXinfqzeDVDYNBEAUQ6322-25-18 12:20:00 Test Item Value Reference Range Interpretation Comments UA Protein (test code Negative (09/01/2011 N = UA Protein) 07:20:00) [facility] [place]anoAwrdsipNTMLEHPOGY6334-74-50 12:20:00 Test Item Value Reference Range Interpretation Comments UA pH (test code = UA pH) 6.0 1 5.0-8.0 N [facility]anoBfpgjsfZZYLPUPRAR3177-95-49 12:20:00 Test Item Value Reference Range Interpretation Comments UA Bili (test code = Negative (09/01/2011 N UA Bili) 07:20:00) [facility] CenterOopfdzmFFUNQPPFET4410-68-59 12:20:00 Test Item Value Reference Range Interpretation Comments UA Glucose (test code = >=1000 mg/dL A UA Glucose) *ABN*(09/01/2011 07:20:00) [facility] [place]anoCjxolorZCEGLITQZA4735-73-73 12:20:00 Test Item Value Reference Range Interpretation Comments UA Spec Grav (test code = UA Spec 1.035 1 H Grav) [facility] [place]anoVfqpsaiDCFLNLFCXB9842-11-62 12:20:00 Test Item Value Reference Range Interpretation Comments UA Turbidity (test code = Clear (09/01/2011 N UA Turbidity) 07:20:00) [facility] CenterZakqqejQKWQIMBEJF7870-11-79 12:20:00 Test Item Value Reference Range Interpretation Comments UA Color (test code = Yellow *NA*(09/01/2011 UA Color) 07:20:00) [facility] CenterGcdntceGJXENEVKU0638-98-39 12:20:00 Test Item Value Reference Range Interpretation Comments U Preg (test code = U Negative (09/01/2011 N Preg) 07:20:00) [facility] [place]anoMdtwhojKKHYIXXTDE8856-36-93 12:20:00 Test Item Value Reference Range Interpretation Comments UA Sq Epi (test code Occasional /LPF N = UA Sq Epi) (09/01/2011 07:20:00) [facility] CenterQjwfsqqJGRIZQEEFN9830-58-98 12:20:00 Test Item Value Reference Range Interpretation Comments UA Leuk Est (test Negative (09/01/2011 N code = UA Leuk Est) 07:20:00) [facility]anoFefrwatZYSGZAYXPI2150-47-65 12:20:00 Test Item Value Reference Range Interpretation Comments UA Nitrite (test code Negative (09/01/2011 N = UA Nitrite) 07:20:00) [facility]anoQaoodogZPAGCGLGNY7400-79-11 12:20:00 Test Item Value Reference Range Interpretation Comments UA Urobilinogen (test code = UA 0.2 0.1-1.0 N Urobilinogen) [facility] PlanoFxmillxMNQBNCSCQJ0622-07-13 12:20:00 Test Item Value Reference Range Interpretation Comments UA Blood (test code = Negative (09/01/2011 N UA Blood) 07:20:00) [facility]anoOrattviESFDJJLPWD0933-78-11 12:20:00 Test Item Value Reference Range Interpretation Comments UA Ketones (test code = >=80 mg/dL A UA Ketones) *ABN*(09/01/2011 07:20:00) [facility]anoJblxrepHEGFLXKJUF2331-26-41 12:20:00 Test Item Value Reference Range Interpretation Comments UA Protein (test code Negative (09/01/2011 N = UA Protein) 07:20:00) [facility] PlanoDtkhkfvUHHTKZWBCW4927-11-29 12:20:00 Test Item Value Reference Range Interpretation Comments UA pH (test code = UA pH) 6.0 1 5.0-8.0 N [facility] PlanoNwqiqmgNYABSLHUYW9225-32-74 12:20:00 Test Item Value Reference Range Interpretation Comments UA Bili (test code = Negative (09/01/2011 N UA Bili) 07:20:00) [facility]anoVwguejbBTVQEZOIRM2555-74-65 12:20:00 Test Item Value Reference Range Interpretation Comments UA Glucose (test code = >=1000 mg/dL A UA Glucose) *ABN*(09/01/2011 07:20:00) [facility]anoQslrjqyCMOCAKRBZX4471-83-95 12:20:00 Test Item Value Reference Range Interpretation Comments UA Spec Grav (test code = UA Spec 1.035 1 H Grav) [facility] CenterYnhbqraWIECQUQDAC7581-36-16 12:20:00 Test Item Value Reference Range Interpretation Comments UA Turbidity (test code = Clear (09/01/2011 N UA Turbidity) 07:20:00) [facility] CenterHojzilxFVIKHIPEZF0922-09-00 12:20:00 Test Item Value Reference Range Interpretation Comments UA Color (test code = Yellow *NA*(09/01/2011 UA Color) 07:20:00) [facility] CenterSipmrtuMQWJSJTDE4879-61-82 12:20:00 Test Item Value Reference Range Interpretation Comments U Preg (test code = U Negative (09/01/2011 N Preg) 07:20:00) [facility] CenterVoqtkfrWCBROUIFGK8160-67-66 12:20:00 Test Item Value Reference Range Interpretation Comments UA Sq Epi (test code Occasional /LPF N = UA Sq Epi) (09/01/2011 07:20:00) [facility] PlanoScjgmmyCAETWAKWOH2160-19-39 12:20:00 Test Item Value Reference Range Interpretation Comments UA Leuk Est (test Negative (09/01/2011 N code = UA Leuk Est) 07:20:00) [facility] CenterOupyhlzKCJBWGLDZZ2468-39-96 12:20:00 Test Item Value Reference Range Interpretation Comments UA Nitrite (test code Negative (09/01/2011 N = UA Nitrite) 07:20:00) [facility] CenterIvwjnqjWSTMHAKXYP9971-21-81 12:20:00 Test Item Value Reference Range Interpretation Comments UA Urobilinogen (test code = UA 0.2 0.1-1.0 N Urobilinogen) [facility] CenterIfxodoaIDREVSMSMZ1930-24-51 12:20:00 Test Item Value Reference Range Interpretation Comments UA Blood (test code = Negative (09/01/2011 N UA Blood) 07:20:00) [facility] CenterNcfqgazUVGYBZNVYK2349-73-34 12:20:00 Test Item Value Reference Range Interpretation Comments UA Ketones (test code = >=80 mg/dL A UA Ketones) *ABN*(09/01/2011 07:20:00) [facility] [place]anoCspypejXBYTDJOTYV4600-09-01 12:20:00 Test Item Value Reference Range Interpretation Comments UA Protein (test code Negative (09/01/2011 N = UA Protein) 07:20:00) [facility] CenterKzpwndpTRFXRTWLES9796-85-59 12:20:00 Test Item Value Reference Range Interpretation Comments UA pH (test code = UA pH) 6.0 1 5.0-8.0 N [facility] CenterCuqyfwfQBXISVEJLB9860-27-76 12:20:00 Test Item Value Reference Range Interpretation Comments UA Bili (test code = Negative (09/01/2011 N UA Bili) 07:20:00) [facility] CenterMlbniezGGWOMHVDZG9034-94-65 12:20:00 Test Item Value Reference Range Interpretation Comments UA Glucose (test code = >=1000 mg/dL A UA Glucose) *ABN*(09/01/2011 07:20:00) [facility] [place]anoFhuolsfZGHZLSMASV3229-55-24 12:20:00 Test Item Value Reference Range Interpretation Comments UA Spec Grav (test code = UA Spec 1.035 1 H Grav) [facility] [place]anoPsudzctFRPAIXXTYC8529-18-65 12:20:00 Test Item Value Reference Range Interpretation Comments UA Turbidity (test code = Clear (09/01/2011 N UA Turbidity) 07:20:00) [facility] CenterNrfzsisVRQJFCLEKI0139-40-35 12:20:00 Test Item Value Reference Range Interpretation Comments UA Color (test code = Yellow *NA*(09/01/2011 UA Color) 07:20:00) [facility] CenterKevyqocWQGHDBOLM5816-85-08 12:20:00 Test Item Value Reference Range Interpretation Comments U Preg (test code = U Negative (09/01/2011 N Preg) 07:20:00) [facility] [place]anoBeftyhtDSTKHEKSKX3350-54-36 12:20:00 Test Item Value Reference Range Interpretation Comments UA Sq Epi (test code Occasional /LPF N = UA Sq Epi) (09/01/2011 07:20:00) [facility] CenterRvvqjttOEEEXFQGYH7953-65-55 12:20:00 Test Item Value Reference Range Interpretation Comments UA Leuk Est (test Negative (09/01/2011 N code = UA Leuk Est) 07:20:00) [facility] CenterLqmxphwNUTXNZWHCD1882-52-21 12:20:00 Test Item Value Reference Range Interpretation Comments UA Nitrite (test code Negative (09/01/2011 N = UA Nitrite) 07:20:00) [facility] CenterOxfhwffLCCRZQBWOL3470-99-82 12:20:00 Test Item Value Reference Range Interpretation Comments UA Urobilinogen (test code = UA 0.2 0.1-1.0 N Urobilinogen) [facility] CenterYpxedwrHOJIRFYKKB6483-72-97 12:20:00 Test Item Value Reference Range Interpretation Comments UA Blood (test code = Negative (09/01/2011 N UA Blood) 07:20:00) [facility] [place]anoTomyujbVMNDKVNZBA4021-28-27 12:20:00 Test Item Value Reference Range Interpretation Comments UA Ketones (test code = >=80 mg/dL A UA Ketones) *ABN*(09/01/2011 07:20:00) [facility] CenterLqhmmewBJYQWUNOHU5723-11-84 12:20:00 Test Item Value Reference Range Interpretation Comments UA Protein (test code Negative (09/01/2011 N = UA Protein) 07:20:00) [facility] [place]anoBngzewwDLVRFIXZEZ4114-96-29 12:20:00 Test Item Value Reference Range Interpretation Comments UA pH (test code = UA pH) 6.0 1 5.0-8.0 N [facility] PlanoLjyngehEPJDXWUQAN6434-78-30 12:20:00 Test Item Value Reference Range Interpretation Comments UA Bili (test code = Negative (09/01/2011 N UA Bili) 07:20:00) [facility] CenterXytkedhJTOVGZTAVA7913-33-09 12:20:00 Test Item Value Reference Range Interpretation Comments UA Glucose (test code = >=1000 mg/dL A UA Glucose) *ABN*(09/01/2011 07:20:00) [facility] [place]hl[place]PE[place]ONTT8395-97-75 12:20:00 Test Item Value Reference Range Interpretation Comments UA Spec Grav (test code = UA Spec 1.035 1 H Grav) [facility] CenterHdlmpdnCYAWVCBSMJ9568-21-27 12:20:00 Test Item Value Reference Range Interpretation Comments UA Turbidity (test code = Clear (09/01/2011 N UA Turbidity) 07:20:00) [facility] [place]YfqevmjHTJCKZOPPZ0341-07-94 12:20:00 Test Item Value Reference Range Interpretation Comments UA Color (test code = Yellow *NA*(09/01/2011 UA Color) 07:20:00) [facility] CenterQnstapdWKCSRSEIP4338-88-14 08:00:00 Test Item Value Reference Range Interpretation Comments Lactic Acid Lvl (test code = Lactic 2.8 0.5-2.2 H Acid Lvl) [facility] CenterDxebtodDDWWWBPKM8612-62-09 08:00:00 Test Item Value Reference Range Interpretation Comments Lactic Acid Lvl (test code = Lactic 2.8 0.5-2.2 H Acid Lvl) [facility] CenterZsikiocDKSGVCFFI0366-87-92 08:00:00 Test Item Value Reference Range Interpretation Comments Lactic Acid Lvl (test code = Lactic 2.8 0.5-2.2 H Acid Lvl) [facility] CenterDgofoieFDKCMTTTD4020-05-21 08:00:00 Test Item Value Reference Range Interpretation Comments Lactic Acid Lvl (test code = Lactic 2.8 0.5-2.2 H Acid Lvl) [facility] CenterLfytujqCEXKLPWML6894-91-97 08:00:00 Test Item Value Reference Range Interpretation Comments Lactic Acid Lvl (test code = Lactic 2.8 0.5-2.2 H Acid Lvl) [facility] CenterZrjbdhqZIXWBUCPY6654-58-10 07:47:00 Test Item Value Reference Range Interpretation Comments Magnesium Lvl (test code = Magnesium 1.5 1.8-2.4 L Lvl) [facility]JxrbqevGTAWASQDUV9041-79-40 07:47:00 Test Item Value Reference Range Interpretation Comments Polychrom (test code = Slight (09/01/2011 N Polychrom) 02:47:00) [facility] HospitalPnqeqejFMHAKGEOBZ3407-31-68 07:47:00 Test Item Value Reference Range Interpretation Comments Anisocyte (test code = 1+ *ABN*(09/01/2011 A Anisocyte) 02:47:00) [facility] HospitalPxnqrirXBASXIZYJR8398-57-89 07:47:00 Test Item Value Reference Range Interpretation Comments Large Plt (test code = Slight *ABN*(09/01/2011 A Large Plt) 02:47:00) [facility] HospitalOwueuurLLCDMFVTVC9764-20-08 07:47:00 Test Item Value Reference Range Interpretation Comments Tear Cell (test code = Tear Cell) [facility] HospitalUbsorxiBJFGEAPHPV8153-90-30 07:47:00 Test Item Value Reference Range Interpretation Comments Elliptocyte (test code = Slight A Elliptocyte) *ABN*(09/01/2011 02:47:00) [facility] CenterWdeldulDIFCEXQLS3512-68-37 07:47:00 Test Item Value Reference Range Interpretation Comments Magnesium Lvl (test code = Magnesium 1.5 1.8-2.4 L Lvl) [facility] HospitalXhvmrkjXVIQQHGQYJ3615-15-67 07:47:00 Test Item Value Reference Range Interpretation Comments Polychrom (test code = Slight (09/01/2011 N Polychrom) 02:47:00) [facility] HospitalRwscystCUOKWUMSAL7020-55-25 07:47:00 Test Item Value Reference Range Interpretation Comments Anisocyte (test code = 1+ *ABN*(09/01/2011 A Anisocyte) 02:47:00) [facility] HospitalStzdlrwSWIZSOMWIH2997-80-09 07:47:00 Test Item Value Reference Range Interpretation Comments Large Plt (test code = Slight *ABN*(09/01/2011 A Large Plt) 02:47:00) [facility] HospitalKsbdtawSWGLMMGHFP7361-06-65 07:47:00 Test Item Value Reference Range Interpretation Comments Tear Cell (test code = Tear Cell) [facility] HospitalAxghehmWIGTBXHTRE3484-87-98 07:47:00 Test Item Value Reference Range Interpretation Comments Elliptocyte (test code = Slight A Elliptocyte) *ABN*(09/01/2011 02:47:00) [facility] CenterVhllyceEWBPWXBQO8728-42-35 07:47:00 Test Item Value Reference Range Interpretation Comments Magnesium Lvl (test code = Magnesium 1.5 1.8-2.4 L Lvl) [facility] HospitalDizjmujPYDGIVMHZW4529-36-83 07:47:00 Test Item Value Reference Range Interpretation Comments Polychrom (test code = Slight (09/01/2011 N Polychrom) 02:47:00) [facility] HospitalBmwsdldCSQWZYQMSU6630-57-78 07:47:00 Test Item Value Reference Range Interpretation Comments Anisocyte (test code = 1+ *ABN*(09/01/2011 A Anisocyte) 02:47:00) [facility] HospitalXjipnkiVPPCSKDOLL2591-19-28 07:47:00 Test Item Value Reference Range Interpretation Comments Large Plt (test code = Slight *ABN*(09/01/2011 A Large Plt) 02:47:00) [facility] HospitalZovaurhIZHTYAYYSJ9269-14-00 07:47:00 Test Item Value Reference Range Interpretation Comments Tear Cell (test code = Tear Cell) [facility] HospitalCayrwivTFUKNTEVLZ4290-95-08 07:47:00 Test Item Value Reference Range Interpretation Comments Elliptocyte (test code = Slight A Elliptocyte) *ABN*(09/01/2011 02:47:00) [facility] CenterYlmwplyCNLUHEKPY9510-54-22 07:47:00 Test Item Value Reference Range Interpretation Comments Magnesium Lvl (test code = Magnesium 1.5 1.8-2.4 L Lvl) [facility] HospitalYifoaigQAOIJVCGHE4532-26-92 07:47:00 Test Item Value Reference Range Interpretation Comments Polychrom (test code = Slight (09/01/2011 N Polychrom) 02:47:00) [facility] HospitalSpetbnsUYXVUJJZFF6192-07-53 07:47:00 Test Item Value Reference Range Interpretation Comments Anisocyte (test code = 1+ *ABN*(09/01/2011 A Anisocyte) 02:47:00) [facility] HospitalVchzqmaJUEOZPLFXK6876-69-75 07:47:00 Test Item Value Reference Range Interpretation Comments Large Plt (test code = Slight *ABN*(09/01/2011 A Large Plt) 02:47:00) [facility] HospitalIbbjjfmCAKGJCOFXP7669-56-05 07:47:00 Test Item Value Reference Range Interpretation Comments Tear Cell (test code = Tear Cell) [facility] HospitalGjdjjljPPMRYPCYUR2222-17-04 07:47:00 Test Item Value Reference Range Interpretation Comments Elliptocyte (test code = Slight A Elliptocyte) *ABN*(09/01/2011 02:47:00) [facility] CenterUvgvvfjVVMFIFYHQ4709-87-98 07:47:00 Test Item Value Reference Range Interpretation Comments Magnesium Lvl (test code = Magnesium 1.5 1.8-2.4 L Lvl) [facility] HospitalHoxlehgXIKGAPMCVP8136-47-54 07:47:00 Test Item Value Reference Range Interpretation Comments Polychrom (test code = Slight (09/01/2011 N Polychrom) 02:47:00) [facility] HospitalHlritfqVJBTYEPAEQ2096-88-78 07:47:00 Test Item Value Reference Range Interpretation Comments Anisocyte (test code = 1+ *ABN*(09/01/2011 A Anisocyte) 02:47:00) [facility] HospitalKycwhhyDBXQXZXNWZ7176-42-42 07:47:00 Test Item Value Reference Range Interpretation Comments Large Plt (test code = Slight *ABN*(09/01/2011 A Large Plt) 02:47:00) [facility] HospitalVujqdawLOGBABPERI7304-91-19 07:47:00 Test Item Value Reference Range Interpretation Comments Tear Cell (test code = Tear Cell) [facility]OgaznujPFYMSZOLAD7108-42-62 07:47:00 Test Item Value Reference Range Interpretation Comments Elliptocyte (test code = Slight A Elliptocyte) *ABN*(09/01/2011 02:47:00) [facility] GLUCOSE KFFTZUM3806-57-14 17:02:00 Test Item Value Reference Range Interpretation Comments Comment1 (test code = Comment1) Notify RN/ [facility] GLUCOSE XZBXKQL5092-68-95 17:02:00 Test Item Value Reference Range Interpretation Comments Gluc POC Lifscn (test code = Gluc POC 134 65-110 H Lifscn) [facility] GLUCOSE QITSYKV7365-25-25 17:02:00 Test Item Value Reference Range Interpretation Comments Comment1 (test code = Comment1) Notifcaron PATRICK [facility] GLUCOSE PSSVZFE1476-34-79 17:02:00 Test Item Value Reference Range Interpretation Comments Gluc POC Lifscn (test code = Gluc POC 134 65-110 H Lifscn) [facility] GLUCOSE CSKXHNU0634-45-27 17:02:00 Test Item Value Reference Range Interpretation Comments Comment1 (test code = Comment1) Notifcaron MAYS/ [facility] GLUCOSE [id number] 17:02:00 Test Item Value Reference Range Interpretation Comments Gluc POC Lifscn (test code = Gluc POC 134 65-110 H Lifscn) [facility] GLUCOSE QFMSLBH6777-97-89 17:02:00 Test Item Value Reference Range Interpretation Comments Comment1 (test code = Comment1) Notify TABATHA/ [facility] GLUCOSE [id number] 17:02:00 Test Item Value Reference Range Interpretation Comments Gluc POC Lifscn (test code = Gluc POC 134 65-110 H Lifscn) [facility] GLUCOSE [id number] 17:02:00 Test Item Value Reference Range Interpretation Comments Comment1 (test code = Comment1) Notify TABATHA/ [facility] GLUCOSE [id number] 17:02:00 Test Item Value Reference Range Interpretation Comments Gluc POC Lifscn (test code = Gluc POC 134 65-110 H Lifscn) [facility] GLUCOSE [id number] 13:45:00 Test Item Value Reference Range Interpretation Comments Gluc POC Lifscn (test code = Gluc POC 182 65-110 H Lifscn) [facility] GLUCOSE CBKMSAZ7600-95-99 13:45:00 Test Item Value Reference Range Interpretation Comments Comment1 (test code = Comment1) Notify RN/ [facility] GLUCOSE [id number] 13:45:00 Test Item Value Reference Range Interpretation Comments Gluc POC Lifscn (test code = Gluc POC 182 65-110 H Lifscn) [facility] GLUCOSE CAMYDTY4392-28-43 13:45:00 Test Item Value Reference Range Interpretation Comments Comment1 (test code = Comment1) Notify RN/ [facility] GLUCOSE [id number] 13:45:00 Test Item Value Reference Range Interpretation Comments Gluc POC Lifscn (test code = Gluc POC 182 65-110 H Lifscn) [facility] GLUCOSE [id number] 13:45:00 Test Item Value Reference Range Interpretation Comments Comment1 (test code = Comment1) Notify RN/ [facility] GLUCOSE GLLYZLT8395-36-30 13:45:00 Test Item Value Reference Range Interpretation Comments Gluc POC Lifscn (test code = Gluc POC 182 65-110 H Lifscn) [facility] GLUCOSE TJJUJFW7488-05-89 13:45:00 Test Item Value Reference Range Interpretation Comments Comment1 (test code = Comment1) Notify TABATHA/ [facility] GLUCOSE NKGAVXM2574-05-84 13:45:00 Test Item Value Reference Range Interpretation Comments Gluc POC Lifscn (test code = Gluc POC 182 65-110 H Lifscn) [facility] GLUCOSE [id number] 13:45:00 Test Item Value Reference Range Interpretation Comments Comment1 (test code = Comment1) Notify TABATHA/ [facility] CenterHuwmvlaNHJVGQPXK9117-47-04 10:22:00 Test Item Value Reference Range Interpretation Comments Phosphorus (test code = Phosphorus) 3.0 2.5-4.5 N [facility] CenterSjwchulGTWUKQHJB9126-84-91 10:22:00 Test Item Value Reference Range Interpretation Comments Magnesium Lvl (test code = Magnesium 1.8 1.8-2.4 N Lvl) [facility] CenterTzbsqgzZXRLMNSSP0165-49-58 10:22:00 Test Item Value Reference Range Interpretation Comments Chloride Lvl (test code = Chloride Lvl) 107 95-109 N [facility] CenterMaypwzqVJZYKKBMO6353-07-71 10:22:00 Test Item Value Reference Range Interpretation Comments Potassium Lvl (test code = Potassium 3.0 3.5-5.1 A Lvl) [facility] CenterQkcfvtiKRIOFBADH5684-38-13 10:22:00 Test Item Value Reference Range Interpretation Comments Sodium Lvl (test code = Sodium Lvl) 141 135-145 N [facility] CenterKoboilgHKDUJABGN8591-24-02 10:22:00 Test Item Value Reference Range Interpretation Comments Creatinine Lvl (test code = Creatinine 0.6 0.5-1.4 N Lvl) [facility] CenterNauupmaHZDZWIUQV4883-41-53 10:22:00 Test Item Value Reference Range Interpretation Comments CO2 (test code = CO2) 23 24-32 L [facility] CenterPjcxispMMENBYGLY9663-47-73 10:22:00 Test Item Value Reference Range Interpretation Comments Calcium Lvl (test code = Calcium Lvl) 7.3 8.5-10.5 L [facility] CenterIngrexwJTNCKJALW0202-17-29 10:22:00 Test Item Value Reference Range Interpretation Comments Glucose Lvl (test code = Glucose Lvl) 136 [facility] CenterReuhfgcNFTUPCPRJ1482-02-53 10:22:00 Test Item Value Reference Range Interpretation Comments AGAP (test code = AGAP) 14.0 10.0-20.0 N [facility] CenterEtcbggsNXHPRJWIP3803-12-37 10:22:00 Test Item Value Reference Range Interpretation Comments BUN (test code = BUN) 5 7-22 L [facility] HospitalXaqeorlRLEOXEXBWU3506-30-67 10:22:00 Test Item Value Reference Range Interpretation Comments Segs (test code = Segs) 69.6 45.0-75.0 N [facility] HospitalBhsumjaVXMIKLIEEZ8407-69-52 10:22:00 Test Item Value Reference Range Interpretation Comments Lymphocytes (test code = Lymphocytes) 21.5 20.0-40.0 N [facility] HospitalIvfxzxkENUXLDKAJV9443-24-99 10:22:00 Test Item Value Reference Range Interpretation Comments Monocytes (test code = Monocytes) 7.6 2.0-12.0 N [facility] HospitalRsoeefhTOGGPXHSSA8899-98-10 10:22:00 Test Item Value Reference Range Interpretation Comments Eosinophils (test code = 1.0 See_Comment N [A utomated message] The Eosinophils) system which ge nerated this result tra nsmitted reference range : <=4.0. The reference r leo was not used to int erpret this result as normal/abnormal . [facility] HospitalJajadhrBBQHTFQTPP9392-46-80 10:22:00 Test Item Value Reference Range Interpretation Comments Basophils (test code = 0.3 See_Comment N [Aut omated message] The Basophils) system which ge nerated this result tra nsmitted reference range : <=1.0. The reference r leo was not used to int erpret this result as normal/abnormal . [facility] HospitalRjugzoePRCGLBQQXF6528-12-46 10:22:00 Test Item Value Reference Range Interpretation Comments Segs-Bands # (test code = Segs-Bands #) 4.8 1.5-8.1 N [facility] HospitalHkvdtxlYJJMPIANLF1625-40-55 10:22:00 Test Item Value Reference Range Interpretation Comments Eosinophils # (test code 0.1 See_Comment N [A utomated message] The = Eosinophils #) system wh h generated this result tra nsmitted reference range : <=0.5. The reference r leo was not used to int erpret this result as normal/abnormal . [facility] HospitalGvtbfscRGZCQCIBHQ0934-67-55 10:22:00 Test Item Value Reference Range Interpretation Comments Lymphocytes # (test code = Lymphocytes 1.5 1.0-5.5 N #) [facility] HospitalBiglhocCURIGTAISW1651-66-57 10:22:00 Test Item Value Reference Range Interpretation Comments Monocytes # (test code 0.5 See_Comment N [Aut omated message] The = Monocytes #) system which generated this result tra nsmitted reference range : <=0.8. The reference r leo was not used to int erpret this result as normal/abnormal . [facility] HospitalUtedmhhQIPDTZEENO0896-05-61 10:22:00 Test Item Value Reference Range Interpretation Comments Basophils # (test code 0.0 See_Comment N [Aut omated message] The = Basophils #) system which generated this result tra nsmitted reference range : <=0.2. The reference r leo was not used to int erpret this result as normal/abnormal . [facility] HospitalFuaaqukGEQSUYNODA9680-45-37 10:22:00 Test Item Value Reference Range Interpretation Comments MPV (test code = MPV) 11.0 7.4-10.4 H [facility] HospitalDsmkycjNVZUIWOBQJ1846-97-92 10:22:00 Test Item Value Reference Range Interpretation Comments Platelet (test code = Platelet) 161 133-450 N [facility] HospitalOlowfwsKLHVOISSMW9476-64-96 10:22:00 Test Item Value Reference Range Interpretation Comments MCH (test code = MCH) 29.6 pg 27.0-31.0 N [facility] HospitalYrxxzodWGNJPEONFR7902-74-84 10:22:00 Test Item Value Reference Range Interpretation Comments MCHC (test code = MCHC) 35.4 32.0-36.0 N [facility] HospitalKfmwokdFUZDLNRWKA0001-13-16 10:22:00 Test Item Value Reference Range Interpretation Comments RDW (test code = RDW) 14.1 11.5-14.5 N [facility] HospitalXmpwyqmOXDRUZFZUU5118-75-40 10:22:00 Test Item Value Reference Range Interpretation Comments WBC (test code = WBC) 6.8 3.7-10.4 N [facility] HospitalQzxihjmCDPSZTWZZO7839-85-98 10:22:00 Test Item Value Reference Range Interpretation Comments MCV (test code = MCV) 83.5 81.0-99.0 N [facility] HospitalKbxndtbEVJRBKWKHV2968-89-53 10:22:00 Test Item Value Reference Range Interpretation Comments RBC (test code = RBC) 4.44 4.20-5.40 N [facility] HospitalYofetexAAEJNZISHH8152-97-84 10:22:00 Test Item Value Reference Range Interpretation Comments Hgb (test code = Hgb) 13.1 12.0-16.0 N [facility] HospitalDgxyvdbKZJPPCGUXN8779-53-49 10:22:00 Test Item Value Reference Range Interpretation Comments Hct (test code = Hct) 37.1 36.0-48.0 N [facility] CenterVfintxnZQDLMDNXA2965-57-15 10:22:00 Test Item Value Reference Range Interpretation Comments Phosphorus (test code = Phosphorus) 3.0 2.5-4.5 N [facility] CenterClurihjFZFEGZWZF6910-69-09 10:22:00 Test Item Value Reference Range Interpretation Comments Magnesium Lvl (test code = Magnesium 1.8 1.8-2.4 N Lvl) [facility] CenterQvggkwcRWDHWGLKN6620-34-95 10:22:00 Test Item Value Reference Range Interpretation Comments Chloride Lvl (test code = Chloride Lvl) 107 95-109 N [facility] CenterDwxwgsqMUBHBCFEH1998-17-66 10:22:00 Test Item Value Reference Range Interpretation Comments Potassium Lvl (test code = Potassium 3.0 3.5-5.1 A Lvl) [facility] CenterMpuxzqwWUVWRLQUM6055-31-53 10:22:00 Test Item Value Reference Range Interpretation Comments Sodium Lvl (test code = Sodium Lvl) 141 135-145 N [facility] CenterTxqpyefGWMTDHKKX2292-07-64 10:22:00 Test Item Value Reference Range Interpretation Comments Creatinine Lvl (test code = Creatinine 0.6 0.5-1.4 N Lvl) [facility] CenterEezylxiHWDMRVVUS0836-14-14 10:22:00 Test Item Value Reference Range Interpretation Comments CO2 (test code = CO2) 23 24-32 L [facility] CenterMlypptmTMURKGVBK9188-23-19 10:22:00 Test Item Value Reference Range Interpretation Comments Calcium Lvl (test code = Calcium Lvl) 7.3 8.5-10.5 L [facility] CenterIpayxzjMZJLTFCOE4600-32-46 10:22:00 Test Item Value Reference Range Interpretation Comments Glucose Lvl (test code = Glucose Lvl) 136 [facility] CenterDqmqqruXXIZCCMMW4973-83-17 10:22:00 Test Item Value Reference Range Interpretation Comments AGAP (test code = AGAP) 14.0 10.0-20.0 N [facility] CenterTyjxekjQQONRCYCN2362-21-95 10:22:00 Test Item Value Reference Range Interpretation Comments BUN (test code = BUN) 5 7-22 L [facility] HospitalCwkdfhtLAJWQENZTW3026-14-32 10:22:00 Test Item Value Reference Range Interpretation Comments Segs (test code = Segs) 69.6 45.0-75.0 N [facility] HospitalVeaurhxYOBXLMEOHZ9228-51-87 10:22:00 Test Item Value Reference Range Interpretation Comments Lymphocytes (test code = Lymphocytes) 21.5 20.0-40.0 N [facility] HospitalVqirewvXDKJSIGNJB9421-91-09 10:22:00 Test Item Value Reference Range Interpretation Comments Monocytes (test code = Monocytes) 7.6 2.0-12.0 N [facility] HospitalRrlsmggXGUYKUGOJC3756-72-95 10:22:00 Test Item Value Reference Range Interpretation Comments Eosinophils (test code = 1.0 See_Comment N [A utomated message] The Eosinophils) system which ge nerated this result tra nsmitted reference range : <=4.0. The reference r leo was not used to int erpret this result as normal/abnormal . [facility] HospitalOmqgxoqAOIKNBYXDP6699-20-36 10:22:00 Test Item Value Reference Range Interpretation Comments Basophils (test code = 0.3 See_Comment N [Aut omated message] The Basophils) system which ge nerated this result tra nsmitted reference range : <=1.0. The reference r leo was not used to int erpret this result as normal/abnormal . [facility] HospitalIcqxgxgBJAAAKPRRU6563-68-14 10:22:00 Test Item Value Reference Range Interpretation Comments Segs-Bands # (test code = Segs-Bands #) 4.8 1.5-8.1 N [facility] HospitalKcbwkeuBAHYJTFTDT0213-37-20 10:22:00 Test Item Value Reference Range Interpretation Comments Eosinophils # (test code 0.1 See_Comment N [A utomated message] The = Eosinophils #) system whic h generated this result tra nsmitted reference range : <=0.5. The reference r leo was not used to int erpret this result as normal/abnormal . [facility] HospitalYjgvulzBOGKYWJXBW4467-66-04 10:22:00 Test Item Value Reference Range Interpretation Comments Lymphocytes # (test code = Lymphocytes 1.5 1.0-5.5 N #) [facility] HospitalKxrrsvaRJRCCALLPO8896-27-30 10:22:00 Test Item Value Reference Range Interpretation Comments Monocytes # (test code 0.5 See_Comment N [Aut omated message] The = Monocytes #) system which generated this result tra nsmitted reference range : <=0.8. The reference r leo was not used to int erpret this result as normal/abnormal . [facility] HospitalPvhnnzwXGGPPKCEBX0691-62-18 10:22:00 Test Item Value Reference Range Interpretation Comments Basophils # (test code 0.0 See_Comment N [Aut omated message] The = Basophils #) system which generated this result tra nsmitted reference range : <=0.2. The reference r leo was not used to int erpret this result as normal/abnormal . [facility] HospitalKzincnfXXXSDOLZHW8037-72-65 10:22:00 Test Item Value Reference Range Interpretation Comments MPV (test code = MPV) 11.0 7.4-10.4 H [facility] HospitalVbnlflaFHSHJNTFCO1199-64-43 10:22:00 Test Item Value Reference Range Interpretation Comments Platelet (test code = Platelet) 161 133-450 N [facility] HospitalCkmpnzgEPOFJNANGJ1353-65-96 10:22:00 Test Item Value Reference Range Interpretation Comments MCH (test code = MCH) 29.6 pg 27.0-31.0 N [facility] HospitalZgyunmoHGMDVLBUHO0766-00-51 10:22:00 Test Item Value Reference Range Interpretation Comments MCHC (test code = MCHC) 35.4 32.0-36.0 N [facility] HospitalLiekoqwCPVTZBVLPA2128-90-94 10:22:00 Test Item Value Reference Range Interpretation Comments RDW (test code = RDW) 14.1 11.5-14.5 N [facility] HospitalGeeogtlBWDHROJABF1878-46-88 10:22:00 Test Item Value Reference Range Interpretation Comments WBC (test code = WBC) 6.8 3.7-10.4 N [facility] HospitalIwuuicqSWQDUVPHNR0662-37-18 10:22:00 Test Item Value Reference Range Interpretation Comments MCV (test code = MCV) 83.5 81.0-99.0 N [facility] HospitalPrziuapIIUTAUYPXA6974-32-09 10:22:00 Test Item Value Reference Range Interpretation Comments RBC (test code = RBC) 4.44 4.20-5.40 N [facility] HospitalFuznbsmUTYRFIFRFW4147-01-78 10:22:00 Test Item Value Reference Range Interpretation Comments Hgb (test code = Hgb) 13.1 12.0-16.0 N [facility] HospitalRgxnhwfUSNESPQXEX2309-07-65 10:22:00 Test Item Value Reference Range Interpretation Comments Hct (test code = Hct) 37.1 36.0-48.0 N [facility] CenterPymoslfLGGUHDCKC6320-57-51 10:22:00 Test Item Value Reference Range Interpretation Comments Phosphorus (test code = Phosphorus) 3.0 2.5-4.5 N [facility] CenterIzgobbzVXGFUYHUA9643-78-04 10:22:00 Test Item Value Reference Range Interpretation Comments Magnesium Lvl (test code = Magnesium 1.8 1.8-2.4 N Lvl) [facility] CenterRsqszzvCWNGPKHDD3837-16-88 10:22:00 Test Item Value Reference Range Interpretation Comments Chloride Lvl (test code = Chloride Lvl) 107 95-109 N [facility] CenterEtunhsmAEFQCCWGX8810-94-21 10:22:00 Test Item Value Reference Range Interpretation Comments Potassium Lvl (test code = Potassium 3.0 3.5-5.1 A Lvl) [facility] CenterBvyqhlzRCCTMMYGT8953-51-09 10:22:00 Test Item Value Reference Range Interpretation Comments Sodium Lvl (test code = Sodium Lvl) 141 135-145 N [facility] CenterZmraukbARUHZIFZF2097-95-75 10:22:00 Test Item Value Reference Range Interpretation Comments Creatinine Lvl (test code = Creatinine 0.6 0.5-1.4 N Lvl) [facility] CenterUgzekhhKNWTJPJPQ6088-00-27 10:22:00 Test Item Value Reference Range Interpretation Comments CO2 (test code = CO2) 23 24-32 L [facility] CenterJnifonoRVKXCWGMC8981-40-76 10:22:00 Test Item Value Reference Range Interpretation Comments Calcium Lvl (test code = Calcium Lvl) 7.3 8.5-10.5 L [facility] CenterJimozmeDBTUKDZVF7377-05-95 10:22:00 Test Item Value Reference Range Interpretation Comments Glucose Lvl (test code = Glucose Lvl) 136 [facility] CenterPjwtrzmUZTSDSLVJ6298-45-49 10:22:00 Test Item Value Reference Range Interpretation Comments AGAP (test code = AGAP) 14.0 10.0-20.0 N [facility] CenterVcwdlrhYNNIOAIZE3781-75-67 10:22:00 Test Item Value Reference Range Interpretation Comments BUN (test code = BUN) 5 7-22 L [facility]TnbukejPXPYJBWIGS4970-80-18 10:22:00 Test Item Value Reference Range Interpretation Comments Segs (test code = Segs) 69.6 45.0-75.0 N [facility] HospitalYwmimiiXJKQYAPUCS4339-99-97 10:22:00 Test Item Value Reference Range Interpretation Comments Lymphocytes (test code = Lymphocytes) 21.5 20.0-40.0 N [facility] HospitalVpouxstTANJYIQYEF1265-57-45 10:22:00 Test Item Value Reference Range Interpretation Comments Monocytes (test code = Monocytes) 7.6 2.0-12.0 N [facility] HospitalAjoswerVUZUMFMKRN3753-24-52 10:22:00 Test Item Value Reference Range Interpretation Comments Eosinophils (test code = 1.0 See_Comment N [A utomated message] The Eosinophils) system which ge nerated this result tra nsmitted reference range : <=4.0. The reference r leo was not used to int erpret this result as normal/abnormal . [facility] HospitalIhcttlkVIFPCCBIBQ6468-11-61 10:22:00 Test Item Value Reference Range Interpretation Comments Basophils (test code = 0.3 See_Comment N [Aut omated message] The Basophils) system which ge nerated this result tra nsmitted reference range : <=1.0. The reference r leo was not used to int erpret this result as normal/abnormal . [facility] HospitalIdagghxQFXGXMAMLX9856-21-94 10:22:00 Test Item Value Reference Range Interpretation Comments Segs-Bands # (test code = Segs-Bands #) 4.8 1.5-8.1 N [facility] HospitalGyggrqyTDPMDIFEXF1466-50-48 10:22:00 Test Item Value Reference Range Interpretation Comments Eosinophils # (test code 0.1 See_Comment N [A utomated message] The = Eosinophils #) system whic h generated this result tra nsmitted reference range : <=0.5. The reference r leo was not used to int erpret this result as normal/abnormal . [facility] HospitalDdhxtecMHPBHAMIDQ0380-05-55 10:22:00 Test Item Value Reference Range Interpretation Comments Lymphocytes # (test code = Lymphocytes 1.5 1.0-5.5 N #) [facility] HospitalWzxwnzqHJPDCSCAOK4584-43-36 10:22:00 Test Item Value Reference Range Interpretation Comments Monocytes # (test code 0.5 See_Comment N [Aut omated message] The = Monocytes #) system which generated this result tra nsmitted reference range : <=0.8. The reference r leo was not used to int erpret this result as normal/abnormal . [facility] HospitalDsdxwzyNXLKOXOHOP9727-54-23 10:22:00 Test Item Value Reference Range Interpretation Comments Basophils # (test code 0.0 See_Comment N [Aut omated message] The = Basophils #) system which generated this result tra nsmitted reference range : <=0.2. The reference r leo was not used to int erpret this result as normal/abnormal . [facility] HospitalUuaeajzOUXZBATVWP7036-33-16 10:22:00 Test Item Value Reference Range Interpretation Comments MPV (test code = MPV) 11.0 7.4-10.4 H [facility] HospitalGtaocnzGPSDMMFTOQ6376-39-12 10:22:00 Test Item Value Reference Range Interpretation Comments Platelet (test code = Platelet) 161 133-450 N [facility] HospitalWdcvpmeNTNMYNWCTK5737-41-72 10:22:00 Test Item Value Reference Range Interpretation Comments MCH (test code = MCH) 29.6 pg 27.0-31.0 N [facility] HospitalSbjksrfCUXDRMAXAU1767-41-72 10:22:00 Test Item Value Reference Range Interpretation Comments MCHC (test code = MCHC) 35.4 32.0-36.0 N [facility] HospitalBfadorwHWQUWENQBG9414-20-39 10:22:00 Test Item Value Reference Range Interpretation Comments RDW (test code = RDW) 14.1 11.5-14.5 N [facility] HospitalKwdoezvELFTIITAMT1654-93-94 10:22:00 Test Item Value Reference Range Interpretation Comments WBC (test code = WBC) 6.8 3.7-10.4 N [facility] HospitalTblhwncQJYUYEIKHM1652-73-17 10:22:00 Test Item Value Reference Range Interpretation Comments MCV (test code = MCV) 83.5 81.0-99.0 N [facility] HospitalBowcwiwZEWYLLJGYH0688-90-07 10:22:00 Test Item Value Reference Range Interpretation Comments RBC (test code = RBC) 4.44 4.20-5.40 N [facility] HospitalLvaianlWBUWXYDWST2054-06-47 10:22:00 Test Item Value Reference Range Interpretation Comments Hgb (test code = Hgb) 13.1 12.0-16.0 N [facility] HospitalUyvdvjbQUWXLIDSLV9085-93-55 10:22:00 Test Item Value Reference Range Interpretation Comments Hct (test code = Hct) 37.1 36.0-48.0 N [facility] CenterAhgwkqjWFTPKSABR2787-71-39 10:22:00 Test Item Value Reference Range Interpretation Comments Phosphorus (test code = Phosphorus) 3.0 2.5-4.5 N [facility] CenterFhvtphuBXEVIDZVN4284-37-50 10:22:00 Test Item Value Reference Range Interpretation Comments Magnesium Lvl (test code = Magnesium 1.8 1.8-2.4 N Lvl) [facility] CenterAwiqmzjDIEZJHHHI7340-04-48 10:22:00 Test Item Value Reference Range Interpretation Comments Chloride Lvl (test code = Chloride Lvl) 107 95-109 N [facility] CenterRoclgiaFJAVGTWKZ6442-66-78 10:22:00 Test Item Value Reference Range Interpretation Comments Potassium Lvl (test code = Potassium 3.0 3.5-5.1 A Lvl) [facility] CenterMhurpsvIRNBIFULK9125-39-31 10:22:00 Test Item Value Reference Range Interpretation Comments Sodium Lvl (test code = Sodium Lvl) 141 135-145 N [facility] CenterYmkbxnyGCXPOQOPL7115-45-07 10:22:00 Test Item Value Reference Range Interpretation Comments Creatinine Lvl (test code = Creatinine 0.6 0.5-1.4 N Lvl) [facility] CenterUuokjkgZXXMQDJGM1667-07-70 10:22:00 Test Item Value Reference Range Interpretation Comments CO2 (test code = CO2) 23 24-32 L [facility] CenterWtojcswPBFPGIBAX9052-54-34 10:22:00 Test Item Value Reference Range Interpretation Comments Calcium Lvl (test code = Calcium Lvl) 7.3 8.5-10.5 L [facility] CenterZkcugyfEBKVFGDHR1831-25-83 10:22:00 Test Item Value Reference Range Interpretation Comments Glucose Lvl (test code = Glucose Lvl) 136 [facility] CenterRiytovwVXARYFRYX1972-54-53 10:22:00 Test Item Value Reference Range Interpretation Comments AGAP (test code = AGAP) 14.0 10.0-20.0 N [facility] CenterOotpoubUVKMXZTJE0558-92-62 10:22:00 Test Item Value Reference Range Interpretation Comments BUN (test code = BUN) 5 7-22 L [facility] HospitalHtnkqtqHQZHXJLWEW8426-52-54 10:22:00 Test Item Value Reference Range Interpretation Comments Segs (test code = Segs) 69.6 45.0-75.0 N [facility] HospitalJtppqsvOKEBYVOIHJ0702-23-95 10:22:00 Test Item Value Reference Range Interpretation Comments Lymphocytes (test code = Lymphocytes) 21.5 20.0-40.0 N [facility] HospitalSurbnkeFDCXWJQZGY5863-48-79 10:22:00 Test Item Value Reference Range Interpretation Comments Monocytes (test code = Monocytes) 7.6 2.0-12.0 N [facility] HospitalAvflzbzBKKJUGGYRR1015-35-68 10:22:00 Test Item Value Reference Range Interpretation Comments Eosinophils (test code = 1.0 See_Comment N [A utomated message] The Eosinophils) system which ge nerated this result tra nsmitted reference range : <=4.0. The reference r leo was not used to int erpret this result as normal/abnormal . [facility] HospitalMuymjpoMDUMJVODHC7773-45-27 10:22:00 Test Item Value Reference Range Interpretation Comments Basophils (test code = 0.3 See_Comment N [Aut omated message] The Basophils) system which ge nerated this result tra nsmitted reference range : <=1.0. The reference r leo was not used to int erpret this result as normal/abnormal . [facility] HospitalOtpwhsaDYTVRZHPGS3335-57-51 10:22:00 Test Item Value Reference Range Interpretation Comments Segs-Bands # (test code = Segs-Bands #) 4.8 1.5-8.1 N [facility] HospitalKwjsrkhCACGHTRSVP6019-93-48 10:22:00 Test Item Value Reference Range Interpretation Comments Eosinophils # (test code 0.1 See_Comment N [A utomated message] The = Eosinophils #) system whic h generated this result tra nsmitted reference range : <=0.5. The reference r leo was not used to int erpret this result as normal/abnormal . [facility] HospitalShalnpcHXJRZTKTEJ2243-32-83 10:22:00 Test Item Value Reference Range Interpretation Comments Lymphocytes # (test code = Lymphocytes 1.5 1.0-5.5 N #) [facility] HospitalBgwoglwRPGXZARKGG6394-06-03 10:22:00 Test Item Value Reference Range Interpretation Comments Monocytes # (test code 0.5 See_Comment N [Aut omated message] The = Monocytes #) system which generated this result tra nsmitted reference range : <=0.8. The reference r leo was not used to int erpret this result as normal/abnormal . [facility] HospitalFjzbgksSPTNSREZVY9399-57-28 10:22:00 Test Item Value Reference Range Interpretation Comments Basophils # (test code 0.0 See_Comment N [Aut omated message] The = Basophils #) system which generated this result tra nsmitted reference range : <=0.2. The reference r leo was not used to int erpret this result as normal/abnormal . [facility] HospitalJpmxsxzHOUSNGOMVJ1291-80-61 10:22:00 Test Item Value Reference Range Interpretation Comments MPV (test code = MPV) 11.0 7.4-10.4 H [facility] HospitalRuensowVXNIUAFZUW4933-75-27 10:22:00 Test Item Value Reference Range Interpretation Comments Platelet (test code = Platelet) 161 133-450 N [facility] HospitalKlevkvtSJQOVGAYYC8030-69-96 10:22:00 Test Item Value Reference Range Interpretation Comments MCH (test code = MCH) 29.6 pg 27.0-31.0 N [facility] HospitalWcsocfhHWILFKSOZB0669-75-55 10:22:00 Test Item Value Reference Range Interpretation Comments MCHC (test code = MCHC) 35.4 32.0-36.0 N [facility] HospitalAsrtktnGDZASVGTQT1393-34-01 10:22:00 Test Item Value Reference Range Interpretation Comments RDW (test code = RDW) 14.1 11.5-14.5 N [facility] HospitalUjdskgeWPVPEYRQXS9610-76-73 10:22:00 Test Item Value Reference Range Interpretation Comments WBC (test code = WBC) 6.8 3.7-10.4 N [facility] HospitalVagojkqEANSZLOMYP7865-73-48 10:22:00 Test Item Value Reference Range Interpretation Comments MCV (test code = MCV) 83.5 81.0-99.0 N [facility] HospitalJjitptyMSHNKFKLDA3741-55-03 10:22:00 Test Item Value Reference Range Interpretation Comments RBC (test code = RBC) 4.44 4.20-5.40 N [facility] HospitalHohulcdYUTRJLROZW1681-35-06 10:22:00 Test Item Value Reference Range Interpretation Comments Hgb (test code = Hgb) 13.1 12.0-16.0 N [facility] HospitalYumfkwhMTRXBLTAVQ4272-36-13 10:22:00 Test Item Value Reference Range Interpretation Comments Hct (test code = Hct) 37.1 36.0-48.0 N [facility] CenterAkwgnvuSYIXJFVTY5010-91-96 10:22:00 Test Item Value Reference Range Interpretation Comments Phosphorus (test code = Phosphorus) 3.0 2.5-4.5 N [facility] CenterOnumwwaOERLVQKWW6965-43-60 10:22:00 Test Item Value Reference Range Interpretation Comments Magnesium Lvl (test code = Magnesium 1.8 1.8-2.4 N Lvl) [facility] CenterQfsjpqtEKEMEADLF6414-07-88 10:22:00 Test Item Value Reference Range Interpretation Comments Chloride Lvl (test code = Chloride Lvl) 107 95-109 N [facility] CenterKldqdcwIBABZCAMF9302-15-34 10:22:00 Test Item Value Reference Range Interpretation Comments Potassium Lvl (test code = Potassium 3.0 3.5-5.1 A Lvl) [facility] CenterZhgmerlNRBGFMPTP0456-97-86 10:22:00 Test Item Value Reference Range Interpretation Comments Sodium Lvl (test code = Sodium Lvl) 141 135-145 N [facility] CenterCdrnqpkZGKAGGSJF0435-37-81 10:22:00 Test Item Value Reference Range Interpretation Comments Creatinine Lvl (test code = Creatinine 0.6 0.5-1.4 N Lvl) [facility] CenterLdtwketMUSBYZFGF6761-81-90 10:22:00 Test Item Value Reference Range Interpretation Comments CO2 (test code = CO2) 23 24-32 L [facility] CenterPtaodwdTTTNXSVFV8370-87-39 10:22:00 Test Item Value Reference Range Interpretation Comments Calcium Lvl (test code = Calcium Lvl) 7.3 8.5-10.5 L [facility] CenterWegdaduSSMPOZAHQ9033-33-97 10:22:00 Test Item Value Reference Range Interpretation Comments Glucose Lvl (test code = Glucose Lvl) 136 [facility] CenterQidgsokLGCHSHVQQ0085-56-33 10:22:00 Test Item Value Reference Range Interpretation Comments AGAP (test code = AGAP) 14.0 10.0-20.0 N [facility] CenterTzowuhwLEJBKSMQR8687-49-13 10:22:00 Test Item Value Reference Range Interpretation Comments BUN (test code = BUN) 5 7-22 L [facility] HospitalGibjplhLGQDKECCDJ1881-07-67 10:22:00 Test Item Value Reference Range Interpretation Comments Segs (test code = Segs) 69.6 45.0-75.0 N [facility] HospitalZkrzfbvNHTBDFQCDF9678-00-83 10:22:00 Test Item Value Reference Range Interpretation Comments Lymphocytes (test code = Lymphocytes) 21.5 20.0-40.0 N [facility] HospitalSxvceuaFVJRNVVEPO5795-11-27 10:22:00 Test Item Value Reference Range Interpretation Comments Monocytes (test code = Monocytes) 7.6 2.0-12.0 N [facility] HospitalHyrphfiWLQCQNOSNV1532-68-46 10:22:00 Test Item Value Reference Range Interpretation Comments Eosinophils (test code = 1.0 See_Comment N [A utomated message] The Eosinophils) system which ge nerated this result tra nsmitted reference range : <=4.0. The reference r leo was not used to int erpret this result as normal/abnormal . [facility] HospitalSlyimwhOVWEZJMCNV0431-35-98 10:22:00 Test Item Value Reference Range Interpretation Comments Basophils (test code = 0.3 See_Comment N [Aut omated message] The Basophils) system which ge nerated this result tra nsmitted reference range : <=1.0. The reference r leo was not used to int erpret this result as normal/abnormal . [facility] HospitalXocdloeCVZEHRGRGG9358-92-93 10:22:00 Test Item Value Reference Range Interpretation Comments Segs-Bands # (test code = Segs-Bands #) 4.8 1.5-8.1 N [facility] HospitalZvsnvdyLUZSMQNXND2499-86-19 10:22:00 Test Item Value Reference Range Interpretation Comments Eosinophils # (test code 0.1 See_Comment N [A utomated message] The = Eosinophils #) system whic h generated this result tra nsmitted reference range : <=0.5. The reference r leo was not used to int erpret this result as normal/abnormal . [facility] HospitalAbqxbqrQRRQJJIVFX6682-42-93 10:22:00 Test Item Value Reference Range Interpretation Comments Lymphocytes # (test code = Lymphocytes 1.5 1.0-5.5 N #) [facility] HospitalHxvqywmBISUZFSVIZ5193-40-89 10:22:00 Test Item Value Reference Range Interpretation Comments Monocytes # (test code 0.5 See_Comment N [Aut omated message] The = Monocytes #) system which generated this result tra nsmitted reference range : <=0.8. The reference r leo was not used to int erpret this result as normal/abnormal . [facility] HospitalMgbvqxtFPUHLMXBRR8970-32-23 10:22:00 Test Item Value Reference Range Interpretation Comments Basophils # (test code 0.0 See_Comment N [Aut omated message] The = Basophils #) system which generated this result tra nsmitted reference range : <=0.2. The reference r leo was not used to int erpret this result as normal/abnormal . [facility] HospitalCbzkqglRXLITMDBAW0317-32-25 10:22:00 Test Item Value Reference Range Interpretation Comments MPV (test code = MPV) 11.0 7.4-10.4 H [facility] HospitalQauwfobVDNUUHCWHG2798-75-44 10:22:00 Test Item Value Reference Range Interpretation Comments Platelet (test code = Platelet) 161 133-450 N [facility] HospitalMsuaenxYNXXULEZMT7234-07-16 10:22:00 Test Item Value Reference Range Interpretation Comments MCH (test code = MCH) 29.6 pg 27.0-31.0 N [facility] HospitalNnhhngdIRQBXLQTGQ4293-70-17 10:22:00 Test Item Value Reference Range Interpretation Comments MCHC (test code = MCHC) 35.4 32.0-36.0 N [facility] HospitalKifxswuBXICYGYMDW4383-17-06 10:22:00 Test Item Value Reference Range Interpretation Comments RDW (test code = RDW) 14.1 11.5-14.5 N [facility] HospitalUilcbhnLCVLXWAPAA7868-75-17 10:22:00 Test Item Value Reference Range Interpretation Comments WBC (test code = WBC) 6.8 3.7-10.4 N [facility] HospitalMrygasbNRLHRCTPEV4876-52-09 10:22:00 Test Item Value Reference Range Interpretation Comments MCV (test code = MCV) 83.5 81.0-99.0 N [facility] HospitalAupuxctBGZQIZAIMB8568-70-48 10:22:00 Test Item Value Reference Range Interpretation Comments RBC (test code = RBC) 4.44 4.20-5.40 N [facility] HospitalYptruzdLRSXATNIXI1540-19-14 10:22:00 Test Item Value Reference Range Interpretation Comments Hgb (test code = Hgb) 13.1 12.0-16.0 N [facility] HospitalVadulcyFBFVLJJIQP5775-23-28 10:22:00 Test Item Value Reference Range Interpretation Comments Hct (test code = Hct) 37.1 36.0-48.0 N [facility] GLUCOSE HPRDRVO7659-29-28 02:20:00 Test Item Value Reference Range Interpretation Comments Comment1 (test code = Comment1) Notify RN/ [facility] GLUCOSE HQJZKCY7696-13-43 02:20:00 Test Item Value Reference Range Interpretation Comments Gluc POC Lifscn (test code = Gluc POC 332 65-110 H [facility]) [facility] GLUCOSE SLXQHAW0917-53-39 02:20:00 Test Item Value Reference Range Interpretation Comments Comment1 (test code = Comment1) Notify RN/ [facility] GLUCOSE WZVNYQW9553-12-68 02:20:00 Test Item Value Reference Range Interpretation Comments Gluc POC Lifscn (test code = Gluc POC 332 65-110 H [facility]) [facility] GLUCOSE ICULMWF9629-60-59 02:20:00 Test Item Value Reference Range Interpretation Comments Comment1 (test code = Comment1) Notify RN/ [facility] GLUCOSE LTRDTRL4838-81-36 02:20:00 Test Item Value Reference Range Interpretation Comments Gluc POC Lifscn (test code = Gluc POC 332 65-110 H [facility]) [facility] GLUCOSE PFLLZOB8517-69-50 02:20:00 Test Item Value Reference Range Interpretation Comments Comment1 (test code = Comment1) Notify RN/ [facility] GLUCOSE AOOCPIO0751-96-83 02:20:00 Test Item Value Reference Range Interpretation Comments Gluc POC Lifscn (test code = Gluc POC 332 65-110 H [facility]) [facility] GLUCOSE ZRJIIZE4092-30-45 02:20:00 Test Item Value Reference Range Interpretation Comments Comment1 (test code = Comment1) Notify RN/ [facility] GLUCOSE EIEYHGK1166-67-46 02:20:00 Test Item Value Reference Range Interpretation Comments Gluc POC Lifscn (test code = Gluc POC 332 65-110 H [facility]) [facility] CenterMsyfbwcSRLQIUQNH5563-80-37 09:47:00 Test Item Value Reference Range Interpretation Comments Phosphorus (test code = Phosphorus) 2.5 2.5-4.5 N [facility] CenterRfkkswgSSRTTZPLU6563-91-57 09:47:00 Test Item Value Reference Range Interpretation Comments Glucose Lvl (test code = Glucose Lvl) 201 [facility] CenterVybauxrCSDYTGAID7704-60-11 09:47:00 Test Item Value Reference Range Interpretation Comments BUN (test code = BUN) 7 7-22 N [facility] CenterFpzitnwHFFOEUXSY8034-18-60 09:47:00 Test Item Value Reference Range Interpretation Comments CO2 (test code = CO2) 19 24-32 L [facility] CenterAfrbaggORJYJIGNQ0237-38-87 09:47:00 Test Item Value Reference Range Interpretation Comments Creatinine Lvl (test code = Creatinine 0.3 0.5-1.4 L Lvl) [facility] CenterRrgyjjeLHTGPHHTO0323-71-36 09:47:00 Test Item Value Reference Range Interpretation Comments Sodium Lvl (test code = Sodium Lvl) 137 135-145 N [facility] CenterPvggcgaUUMFFVPEH3970-81-86 09:47:00 Test Item Value Reference Range Interpretation Comments Chloride Lvl (test code = Chloride Lvl) 103 95-109 N [facility] CenterWmuoszyPNIFQTPMO6125-12-76 09:47:00 Test Item Value Reference Range Interpretation Comments Potassium Lvl (test code = Potassium 3.6 3.5-5.1 N Lvl) [facility] CenterRoumotmEOHBQGPBK9884-44-78 09:47:00 Test Item Value Reference Range Interpretation Comments Calcium Lvl (test code = Calcium Lvl) 7.9 8.5-10.5 L [facility] CenterNkrlnwzHSXNPFHAQ2438-37-83 09:47:00 Test Item Value Reference Range Interpretation Comments AGAP (test code = AGAP) 18.6 10.0-20.0 N [facility] CenterMmyoltsNQIPUAOXM3283-31-52 09:47:00 Test Item Value Reference Range Interpretation Comments Magnesium Lvl (test code = Magnesium 1.6 1.8-2.4 L Lvl) [facility] HospitalYchjsxzANBPOEMXMY8033-50-32 09:47:00 Test Item Value Reference Range Interpretation Comments Basophils # (test code 0.0 See_Comment N [Aut omated message] The = Basophils #) system which generated this result tra nsmitted reference range : <=0.2. The reference r leo was not used to int erpret this result as normal/abnormal . [facility] HospitalZeoxfpqANNXIVBMWU5761-77-90 09:47:00 Test Item Value Reference Range Interpretation Comments Eosinophils (test code = 0.4 See_Comment N [A utomated message] The Eosinophils) system which ge nerated this result tra nsmitted reference range : <=4.0. The reference r leo was not used to int erpret this result as normal/abnormal . [facility] HospitalHxrckqdFFAHGHKIQT1641-18-66 09:47:00 Test Item Value Reference Range Interpretation Comments Basophils (test code = 0.5 See_Comment N [Aut omated message] The Basophils) system which ge nerated this result tra nsmitted reference range : <=1.0. The reference r leo was not used to int erpret this result as normal/abnormal . [facility] HospitalRpcewqgLSZFVIYOWQ0366-45-83 09:47:00 Test Item Value Reference Range Interpretation Comments Segs-Bands # (test code = Segs-Bands #) 5.9 1.5-8.1 N [facility] HospitalAkaudleIBWWFJLMPN9438-17-71 09:47:00 Test Item Value Reference Range Interpretation Comments Lymphocytes # (test code = Lymphocytes 1.2 1.0-5.5 N #) [facility] HospitalJmbhaqzUEZJVCGWLZ8864-60-09 09:47:00 Test Item Value Reference Range Interpretation Comments Monocytes # (test code 0.5 See_Comment N [Aut omated message] The = Monocytes #) system which generated this result tra nsmitted reference range : <=0.8. The reference r leo was not used to int erpret this result as normal/abnormal . [facility] HospitalDqnnwylQZXVPIFOWT9490-31-38 09:47:00 Test Item Value Reference Range Interpretation Comments Eosinophils # (test code 0.0 See_Comment N [A utomated message] The = Eosinophils #) system whic h generated this result tra nsmitted reference range : <=0.5. The reference r leo was not used to int erpret this result as normal/abnormal . [facility] HospitalVwoytpkJOFSUEOXDJ6886-77-66 09:47:00 Test Item Value Reference Range Interpretation Comments Segs (test code = Segs) 76.9 45.0-75.0 H [facility] HospitalIhlzwqyGGDTNOHROC4998-65-61 09:47:00 Test Item Value Reference Range Interpretation Comments Lymphocytes (test code = Lymphocytes) 15.9 20.0-40.0 L [facility] HospitalYzlgdkrKDTHKMWDED6781-58-08 09:47:00 Test Item Value Reference Range Interpretation Comments Monocytes (test code = Monocytes) 6.3 2.0-12.0 N [facility] HospitalJzctobuKMZQOEFICS6720-11-68 09:47:00 Test Item Value Reference Range Interpretation Comments MCV (test code = MCV) 82.8 81.0-99.0 N [facility] HospitalIgzhmwqORVLAFKFNK9206-99-32 09:47:00 Test Item Value Reference Range Interpretation Comments Hct (test code = Hct) 39.7 36.0-48.0 N [facility] HospitalBjvxnxyAUDCYZMFTW7959-96-85 09:47:00 Test Item Value Reference Range Interpretation Comments MCH (test code = MCH) 29.1 pg 27.0-31.0 N [facility] HospitalVvrqxymJPQTJXHGQQ9611-99-07 09:47:00 Test Item Value Reference Range Interpretation Comments Hgb (test code = Hgb) 14.0 12.0-16.0 N [facility] HospitalYbvxrksASVOFVBMVC9755-40-74 09:47:00 Test Item Value Reference Range Interpretation Comments MCHC (test code = MCHC) 35.2 32.0-36.0 N [facility]QobecmnDFXXOFOKZY8646-95-59 09:47:00 Test Item Value Reference Range Interpretation Comments RDW (test code = RDW) 13.9 11.5-14.5 N [facility] HospitalUepvlqzNVVYNAAEGA1024-64-71 09:47:00 Test Item Value Reference Range Interpretation Comments Platelet (test code = Platelet) 160 133-450 N [facility] HospitalMjlfdmmUCGTAAULYA5632-29-00 09:47:00 Test Item Value Reference Range Interpretation Comments MPV (test code = MPV) 11.9 7.4-10.4 [facility] HospitalAapsbxiUJAMFQWESI8376-30-08 09:47:00 Test Item Value Reference Range Interpretation Comments WBC (test code = WBC) 7.7 3.7-10.4 N [facility] HospitalSsmiehhNFITGLTLCY9761-12-81 09:47:00 Test Item Value Reference Range Interpretation Comments RBC (test code = RBC) 4.80 4.20-5.40 N [facility] CenterKeaquajOQUCSJRWT5880-10-81 09:47:00 Test Item Value Reference Range Interpretation Comments Phosphorus (test code = Phosphorus) 2.5 2.5-4.5 N [facility] CenterJxvxuoiXRMVFWZPD6260-81-51 09:47:00 Test Item Value Reference Range Interpretation Comments Glucose Lvl (test code = Glucose Lvl) 201 [facility] CenterBihkfwwTEPHRFSPQ2771-83-34 09:47:00 Test Item Value Reference Range Interpretation Comments BUN (test code = BUN) 7 7-22 N [facility] CenterWakhqudIZOAFSVLL1128-55-80 09:47:00 Test Item Value Reference Range Interpretation Comments CO2 (test code = CO2) 19 24-32 L [facility] CenterRbnxaenFSGBNDPCS7377-34-30 09:47:00 Test Item Value Reference Range Interpretation Comments Creatinine Lvl (test code = Creatinine 0.3 0.5-1.4 L Lvl) [facility] CenterGeyuubjAUNBKGWCN0329-09-69 09:47:00 Test Item Value Reference Range Interpretation Comments Sodium Lvl (test code = Sodium Lvl) 137 135-145 N [facility] CenterYiidahlUPJRGLUKN4657-39-46 09:47:00 Test Item Value Reference Range Interpretation Comments Chloride Lvl (test code = Chloride Lvl) 103 95-109 N [facility] CenterBzaashkPFFFNXMZN1508-76-67 09:47:00 Test Item Value Reference Range Interpretation Comments Potassium Lvl (test code = Potassium 3.6 3.5-5.1 N Lvl) [facility] CenterYgfirngHRUETEDFL0484-04-00 09:47:00 Test Item Value Reference Range Interpretation Comments Calcium Lvl (test code = Calcium Lvl) 7.9 8.5-10.5 L [facility] CenterVqivsjuLXXLRIWOG5949-88-85 09:47:00 Test Item Value Reference Range Interpretation Comments AGAP (test code = AGAP) 18.6 10.0-20.0 N [facility] CenterEhmrjgtPDQLUKMUZ0546-19-86 09:47:00 Test Item Value Reference Range Interpretation Comments Magnesium Lvl (test code = Magnesium 1.6 1.8-2.4 L Lvl) [facility] HospitalQoqaxqwUEJDHYWRVA2794-31-22 09:47:00 Test Item Value Reference Range Interpretation Comments Basophils # (test code 0.0 See_Comment N [Aut omated message] The = Basophils #) system which generated this result tra nsmitted reference range : <=0.2. The reference r leo was not used to int erpret this result as normal/abnormal . [facility] HospitalTihbdcvZFYJCEVVMN9600-56-41 09:47:00 Test Item Value Reference Range Interpretation Comments Eosinophils (test code = 0.4 See_Comment N [A utomated message] The Eosinophils) system which ge nerated this result tra nsmitted reference range : <=4.0. The reference r leo was not used to int erpret this result as normal/abnormal . [facility] HospitalRqqfqskNMIKPIPADO7147-66-88 09:47:00 Test Item Value Reference Range Interpretation Comments Basophils (test code = 0.5 See_Comment N [Aut omated message] The Basophils) system which ge nerated this result tra nsmitted reference range : <=1.0. The reference r leo was not used to int erpret this result as normal/abnormal . [facility] HospitalXvsmkngHOZQENGVKC7867-44-75 09:47:00 Test Item Value Reference Range Interpretation Comments Segs-Bands # (test code = Segs-Bands #) 5.9 1.5-8.1 N [facility] HospitalJrfrpflXLNEHRRONW5669-34-20 09:47:00 Test Item Value Reference Range Interpretation Comments Lymphocytes # (test code = Lymphocytes 1.2 1.0-5.5 N #) [facility] HospitalWpwwjvvJMGSZWBZDL6966-78-44 09:47:00 Test Item Value Reference Range Interpretation Comments Monocytes # (test code 0.5 See_Comment N [Aut omated message] The = Monocytes #) system which generated this result tra nsmitted reference range : <=0.8. The reference r leo was not used to int erpret this result as normal/abnormal . [facility] HospitalZttrsrwOWECSPLNGV1215-10-48 09:47:00 Test Item Value Reference Range Interpretation Comments Eosinophils # (test code 0.0 See_Comment N [A utomated message] The = Eosinophils #) system whic h generated this result tra nsmitted reference range : <=0.5. The reference r leo was not used to int erpret this result as normal/abnormal . [facility] HospitalQmqcfjkCRFBQOWUJE6364-33-76 09:47:00 Test Item Value Reference Range Interpretation Comments Segs (test code = Segs) 76.9 45.0-75.0 H [facility] HospitalGcogzabRCKXNPMLOY3673-76-21 09:47:00 Test Item Value Reference Range Interpretation Comments Lymphocytes (test code = Lymphocytes) 15.9 20.0-40.0 L [facility] HospitalFacrugfNIDNYOJDOR2948-58-05 09:47:00 Test Item Value Reference Range Interpretation Comments Monocytes (test code = Monocytes) 6.3 2.0-12.0 N [facility] HospitalXozzlehOWLUGNLQHK0665-34-32 09:47:00 Test Item Value Reference Range Interpretation Comments MCV (test code = MCV) 82.8 81.0-99.0 N [facility] HospitalXfxkxthRWAFYOKNIF9545-98-71 09:47:00 Test Item Value Reference Range Interpretation Comments Hct (test code = Hct) 39.7 36.0-48.0 N [facility] HospitalTetpwqlFCYBBJPOOM0609-24-44 09:47:00 Test Item Value Reference Range Interpretation Comments MCH (test code = MCH) 29.1 pg 27.0-31.0 N [facility] HospitalRnijbkdMGZITYMWOK1467-63-92 09:47:00 Test Item Value Reference Range Interpretation Comments Hgb (test code = Hgb) 14.0 12.0-16.0 N [facility] HospitalArkvudbWZPVNMTKUW1915-62-53 09:47:00 Test Item Value Reference Range Interpretation Comments MCHC (test code = MCHC) 35.2 32.0-36.0 N [facility] HospitalDaocouoIHLCWAOWPY8419-83-23 09:47:00 Test Item Value Reference Range Interpretation Comments RDW (test code = RDW) 13.9 11.5-14.5 N [facility] HospitalWseftteKJCPRYKNFE0734-34-68 09:47:00 Test Item Value Reference Range Interpretation Comments Platelet (test code = Platelet) 160 133-450 N [facility] HospitalXflfkffMECOZUSNWF4344-82-01 09:47:00 Test Item Value Reference Range Interpretation Comments MPV (test code = MPV) 11.9 7.4-10.4 H [facility] HospitalWykzthgWVXZYNNWIQ9850-31-03 09:47:00 Test Item Value Reference Range Interpretation Comments WBC (test code = WBC) 7.7 3.7-10.4 N [facility] HospitalWdnbzheTLVOIUOLGL3113-56-52 09:47:00 Test Item Value Reference Range Interpretation Comments RBC (test code = RBC) 4.80 4.20-5.40 N [facility] CenterSsvjmmxDXRBFOVSC9148-50-17 09:47:00 Test Item Value Reference Range Interpretation Comments Phosphorus (test code = Phosphorus) 2.5 2.5-4.5 N [facility] CenterEzrohgkFMMYXFOIK5070-18-37 09:47:00 Test Item Value Reference Range Interpretation Comments Glucose Lvl (test code = Glucose Lvl) 201 [facility] CenterUykguuhHBEUXCTPP5984-98-38 09:47:00 Test Item Value Reference Range Interpretation Comments BUN (test code = BUN) 7 7-22 N [facility] CenterCesalcdHLDCNFGVK8827-98-61 09:47:00 Test Item Value Reference Range Interpretation Comments CO2 (test code = CO2) 19 24-32 L [facility] CenterHixmtwjHKZLYSZJZ3958-66-71 09:47:00 Test Item Value Reference Range Interpretation Comments Creatinine Lvl (test code = Creatinine 0.3 0.5-1.4 L Lvl) [facility] CenterOzwqcfvPAUIZSDFD2233-44-41 09:47:00 Test Item Value Reference Range Interpretation Comments Sodium Lvl (test code = Sodium Lvl) 137 135-145 N [facility] CenterHwgztlyNMZGBYXPG0863-47-55 09:47:00 Test Item Value Reference Range Interpretation Comments Chloride Lvl (test code = Chloride Lvl) 103 95-109 N [facility] CenterMihwpnoDIMEUEPFD4414-20-42 09:47:00 Test Item Value Reference Range Interpretation Comments Potassium Lvl (test code = Potassium 3.6 3.5-5.1 N Lvl) [facility] CenterUajskwfBBJHIWAOA0355-51-68 09:47:00 Test Item Value Reference Range Interpretation Comments Calcium Lvl (test code = Calcium Lvl) 7.9 8.5-10.5 L [facility] CenterSlupdlrGHUPKQDXO0700-70-02 09:47:00 Test Item Value Reference Range Interpretation Comments AGAP (test code = AGAP) 18.6 10.0-20.0 N [facility] CenterNxbyorkCGXYHKNJL0408-52-20 09:47:00 Test Item Value Reference Range Interpretation Comments Magnesium Lvl (test code = Magnesium 1.6 1.8-2.4 L Lvl) [facility] HospitalIqbhwvdKWJWCBTDDB6623-82-25 09:47:00 Test Item Value Reference Range Interpretation Comments Basophils # (test code 0.0 See_Comment N [Aut omated message] The = Basophils #) system which generated this result tra nsmitted reference range : <=0.2. The reference r leo was not used to int erpret this result as normal/abnormal . [facility] HospitalGdplemyHBKUXZJZNP1078-42-88 09:47:00 Test Item Value Reference Range Interpretation Comments Eosinophils (test code = 0.4 See_Comment N [A utomated message] The Eosinophils) system which ge nerated this result tra nsmitted reference range : <=4.0. The reference r leo was not used to int erpret this result as normal/abnormal . [facility] HospitalHyuwgtpEMGPXZKMUO9580-48-85 09:47:00 Test Item Value Reference Range Interpretation Comments Basophils (test code = 0.5 See_Comment N [Aut omated message] The Basophils) system which ge nerated this result tra nsmitted reference range : <=1.0. The reference r leo was not used to int erpret this result as normal/abnormal . [facility] HospitalBbfupmwKHRNRQBVVF7930-01-21 09:47:00 Test Item Value Reference Range Interpretation Comments Segs-Bands # (test code = Segs-Bands #) 5.9 1.5-8.1 N [facility] HospitalOjtwphrTXDWJWZQSJ3448-29-02 09:47:00 Test Item Value Reference Range Interpretation Comments Lymphocytes # (test code = Lymphocytes 1.2 1.0-5.5 N #) [facility] HospitalWoaqqlgVZWTZJIBCE6647-72-64 09:47:00 Test Item Value Reference Range Interpretation Comments Monocytes # (test code 0.5 See_Comment N [Aut omated message] The = Monocytes #) system which generated this result tra nsmitted reference range : <=0.8. The reference r leo was not used to int erpret this result as normal/abnormal . [facility] HospitalCizbxclTYVJAUTYMP3515-09-57 09:47:00 Test Item Value Reference Range Interpretation Comments Eosinophils # (test code 0.0 See_Comment N [A utomated message] The = Eosinophils #) system whic h generated this result tra nsmitted reference range : <=0.5. The reference r leo was not used to int erpret this result as normal/abnormal . [facility] HospitalMghblayKKCZEYXHIZ2701-70-71 09:47:00 Test Item Value Reference Range Interpretation Comments Segs (test code = Segs) 76.9 45.0-75.0 H [facility] HospitalVghizsaJVMOQQIJDO6463-03-99 09:47:00 Test Item Value Reference Range Interpretation Comments Lymphocytes (test code = Lymphocytes) 15.9 20.0-40.0 L [facility] HospitalZyetlthCWAKMRMREN7823-06-13 09:47:00 Test Item Value Reference Range Interpretation Comments Monocytes (test code = Monocytes) 6.3 2.0-12.0 N [facility] HospitalYsyygzpJFNYSIKOIS5156-99-63 09:47:00 Test Item Value Reference Range Interpretation Comments MCV (test code = MCV) 82.8 81.0-99.0 N [facility] HospitalEuvsucwKFKAZBQYNK4835-76-78 09:47:00 Test Item Value Reference Range Interpretation Comments Hct (test code = Hct) 39.7 36.0-48.0 N [facility] HospitalFxesstnFOTJBNNDSC6251-23-93 09:47:00 Test Item Value Reference Range Interpretation Comments MCH (test code = MCH) 29.1 pg 27.0-31.0 N [facility] HospitalZwlqpmgDKLXSZLEGV9507-45-26 09:47:00 Test Item Value Reference Range Interpretation Comments Hgb (test code = Hgb) 14.0 12.0-16.0 N [facility] HospitalLpizpaeWZSERYQKPW1330-11-73 09:47:00 Test Item Value Reference Range Interpretation Comments MCHC (test code = MCHC) 35.2 32.0-36.0 N [facility] HospitalXtqjtwpXYPGOAQLMF7601-05-20 09:47:00 Test Item Value Reference Range Interpretation Comments RDW (test code = RDW) 13.9 11.5-14.5 N [facility] HospitalNdhqczdPBUUTKMXCR3078-88-78 09:47:00 Test Item Value Reference Range Interpretation Comments Platelet (test code = Platelet) 160 133-450 N [facility] HospitalIuhblcyTAYXZTZPNB8894-37-33 09:47:00 Test Item Value Reference Range Interpretation Comments MPV (test code = MPV) 11.9 7.4-10.4 H [facility] HospitalXbknuayMIVSZMTCJA4421-36-05 09:47:00 Test Item Value Reference Range Interpretation Comments WBC (test code = WBC) 7.7 3.7-10.4 N [facility] HospitalHslafnbMECUUVLSVN8232-78-09 09:47:00 Test Item Value Reference Range Interpretation Comments RBC (test code = RBC) 4.80 4.20-5.40 N [facility] CenterLxztruuMVHFHARQU8845-31-65 09:47:00 Test Item Value Reference Range Interpretation Comments Phosphorus (test code = Phosphorus) 2.5 2.5-4.5 N [facility] CenterJhodrluGWOXJQSDO6355-98-62 09:47:00 Test Item Value Reference Range Interpretation Comments Glucose Lvl (test code = Glucose Lvl) 201 [facility] CenterPrhgnfkMGGUKISEO1637-13-99 09:47:00 Test Item Value Reference Range Interpretation Comments BUN (test code = BUN) 7 7-22 N [facility] CenterNfwvzyjXYUUFAIUE2269-01-77 09:47:00 Test Item Value Reference Range Interpretation Comments CO2 (test code = CO2) 19 24-32 L [facility] CenterEgmsoogSMKDAQWQC2673-12-06 09:47:00 Test Item Value Reference Range Interpretation Comments Creatinine Lvl (test code = Creatinine 0.3 0.5-1.4 L Lvl) [facility] CenterUmteqarPVNJJPPFL8161-28-21 09:47:00 Test Item Value Reference Range Interpretation Comments Sodium Lvl (test code = Sodium Lvl) 137 135-145 N [facility] CenterPhegncjUWKVMZUJH2285-69-63 09:47:00 Test Item Value Reference Range Interpretation Comments Chloride Lvl (test code = Chloride Lvl) 103 95-109 N [facility] CenterImenomiHKKSZXLQD2902-36-59 09:47:00 Test Item Value Reference Range Interpretation Comments Potassium Lvl (test code = Potassium 3.6 3.5-5.1 N Lvl) [facility] CenterPaffxdqAAKBCTIWN3179-27-43 09:47:00 Test Item Value Reference Range Interpretation Comments Calcium Lvl (test code = Calcium Lvl) 7.9 8.5-10.5 L [facility] CenterOwyvfzkAEZZCKFJK7742-41-47 09:47:00 Test Item Value Reference Range Interpretation Comments AGAP (test code = AGAP) 18.6 10.0-20.0 N [facility] CenterIxbnapbSULCFAPSF5230-49-20 09:47:00 Test Item Value Reference Range Interpretation Comments Magnesium Lvl (test code = Magnesium 1.6 1.8-2.4 L Lvl) [facility] HospitalZfcmpmcKPMBBMZAAW1714-64-16 09:47:00 Test Item Value Reference Range Interpretation Comments Basophils # (test code 0.0 See_Comment N [Aut omated message] The = Basophils #) system which generated this result tra nsmitted reference range : <=0.2. The reference r leo was not used to int erpret this result as normal/abnormal . [facility] HospitalAflawxtBFISHANRGE2467-77-78 09:47:00 Test Item Value Reference Range Interpretation Comments Eosinophils (test code = 0.4 See_Comment N [A utomated message] The Eosinophils) system which ge nerated this result tra nsmitted reference range : <=4.0. The reference r leo was not used to int erpret this result as normal/abnormal . [facility] HospitalMtetazzDKBUSOLMHH1494-94-86 09:47:00 Test Item Value Reference Range Interpretation Comments Basophils (test code = 0.5 See_Comment N [Aut omated message] The Basophils) system which ge nerated this result tra nsmitted reference range : <=1.0. The reference r leo was not used to int erpret this result as normal/abnormal . [facility] HospitalAnkmkmdMWABIOEWGH6350-58-42 09:47:00 Test Item Value Reference Range Interpretation Comments Segs-Bands # (test code = Segs-Bands #) 5.9 1.5-8.1 N [facility] HospitalDfdehumJCNIDXHFMY0769-07-76 09:47:00 Test Item Value Reference Range Interpretation Comments Lymphocytes # (test code = Lymphocytes 1.2 1.0-5.5 N #) [facility] HospitalMgrwtcrSZAVBSNOTH5604-25-71 09:47:00 Test Item Value Reference Range Interpretation Comments Monocytes # (test code 0.5 See_Comment N [Aut omated message] The = Monocytes #) system which generated this result tra nsmitted reference range : <=0.8. The reference r leo was not used to int erpret this result as normal/abnormal . [facility] HospitalBwqxnajLNXVESYWPN1784-11-70 09:47:00 Test Item Value Reference Range Interpretation Comments Eosinophils # (test code 0.0 See_Comment N [A utomated message] The = Eosinophils #) system whic h generated this result tra nsmitted reference range : <=0.5. The reference r leo was not used to int erpret this result as normal/abnormal . [facility] HospitalVhochrgUZEONZEACA4811-33-52 09:47:00 Test Item Value Reference Range Interpretation Comments Segs (test code = Segs) 76.9 45.0-75.0 H [facility] HospitalLffdoskOGMKRWHZIK0822-62-55 09:47:00 Test Item Value Reference Range Interpretation Comments Lymphocytes (test code = Lymphocytes) 15.9 20.0-40.0 L [facility] HospitalOrsnlwgNRNKBNEGCF9439-97-21 09:47:00 Test Item Value Reference Range Interpretation Comments Monocytes (test code = Monocytes) 6.3 2.0-12.0 N [facility] HospitalVubxgoeNCSQMKVPTT6911-69-71 09:47:00 Test Item Value Reference Range Interpretation Comments MCV (test code = MCV) 82.8 81.0-99.0 N [facility] HospitalHufhlbfMKQJRYTEBB8991-24-93 09:47:00 Test Item Value Reference Range Interpretation Comments Hct (test code = Hct) 39.7 36.0-48.0 N [facility] HospitalUawcdmzEOACKLLJLE4825-12-91 09:47:00 Test Item Value Reference Range Interpretation Comments MCH (test code = MCH) 29.1 pg 27.0-31.0 N [facility] HospitalKzbjttqLBKYGZUSZI1610-57-17 09:47:00 Test Item Value Reference Range Interpretation Comments Hgb (test code = Hgb) 14.0 12.0-16.0 N [facility] HospitalObscvfmMLNTSWGXNR4022-45-46 09:47:00 Test Item Value Reference Range Interpretation Comments MCHC (test code = MCHC) 35.2 32.0-36.0 N [facility] HospitalDzvtzeiGCUBFUHHWQ3845-93-87 09:47:00 Test Item Value Reference Range Interpretation Comments RDW (test code = RDW) 13.9 11.5-14.5 N [facility] HospitalXwnhyknBCZBVRYUIA9635-24-62 09:47:00 Test Item Value Reference Range Interpretation Comments Platelet (test code = Platelet) 160 133-450 N [facility] HospitalRjotbjzSVZTMPVXIE6967-26-18 09:47:00 Test Item Value Reference Range Interpretation Comments MPV (test code = MPV) 11.9 7.4-10.4 H [facility] HospitalWoxnvosEJATZCSQRW6949-44-18 09:47:00 Test Item Value Reference Range Interpretation Comments WBC (test code = WBC) 7.7 3.7-10.4 N [facility] HospitalQqogtugHNEJFCLCKL3000-95-87 09:47:00 Test Item Value Reference Range Interpretation Comments RBC (test code = RBC) 4.80 4.20-5.40 N [facility] CenterLfvbjyuOFADIZUKQ4022-58-24 09:47:00 Test Item Value Reference Range Interpretation Comments Phosphorus (test code = Phosphorus) 2.5 2.5-4.5 N [facility] CenterWlooetnIURDSNGXC8848-36-05 09:47:00 Test Item Value Reference Range Interpretation Comments Glucose Lvl (test code = Glucose Lvl) 201 [facility] CenterSdlyvpoMOWFBJGSZ9686-30-01 09:47:00 Test Item Value Reference Range Interpretation Comments BUN (test code = BUN) 7 7-22 N [facility] CenterTrwbhqhJSUXFJXKO7020-92-73 09:47:00 Test Item Value Reference Range Interpretation Comments CO2 (test code = CO2) 19 24-32 L [facility] CenterAkpqcnoCIIDQBRRT3455-98-72 09:47:00 Test Item Value Reference Range Interpretation Comments Creatinine Lvl (test code = Creatinine 0.3 0.5-1.4 L Lvl) [facility] CenterGnynwtvWVPOEOPFC8067-46-75 09:47:00 Test Item Value Reference Range Interpretation Comments Sodium Lvl (test code = Sodium Lvl) 137 135-145 N [facility] CenterAmjqyykDBIPYQULX6693-83-34 09:47:00 Test Item Value Reference Range Interpretation Comments Chloride Lvl (test code = Chloride Lvl) 103 95-109 N [facility] CenterDjhpohvAASXNDGTB6963-97-13 09:47:00 Test Item Value Reference Range Interpretation Comments Potassium Lvl (test code = Potassium 3.6 3.5-5.1 N Lvl) [facility] CenterIipxxhpRESECQXDD6638-49-94 09:47:00 Test Item Value Reference Range Interpretation Comments Calcium Lvl (test code = Calcium Lvl) 7.9 8.5-10.5 L [facility] CenterByhnxepDFAYASMUO4675-21-65 09:47:00 Test Item Value Reference Range Interpretation Comments AGAP (test code = AGAP) 18.6 10.0-20.0 N [facility] CenterAfmtuwfLGPUXRQOD8653-00-41 09:47:00 Test Item Value Reference Range Interpretation Comments Magnesium Lvl (test code = Magnesium 1.6 1.8-2.4 L Lvl) [facility] HospitalBcowmccZJENAIZRZR4028-52-44 09:47:00 Test Item Value Reference Range Interpretation Comments Basophils # (test code 0.0 See_Comment N [Aut omated message] The = Basophils #) system which generated this result tra nsmitted reference range : <=0.2. The reference r leo was not used to int erpret this result as normal/abnormal . [facility] HospitalXsskbpaRHTLTCLOBK4799-95-64 09:47:00 Test Item Value Reference Range Interpretation Comments Eosinophils (test code = 0.4 See_Comment N [A utomated message] The Eosinophils) system which ge nerated this result tra nsmitted reference range : <=4.0. The reference r leo was not used to int erpret this result as normal/abnormal . [facility] HospitalGxqqkbsPYKCKMGZYG5577-99-37 09:47:00 Test Item Value Reference Range Interpretation Comments Basophils (test code = 0.5 See_Comment N [Aut omated message] The Basophils) system which ge nerated this result tra nsmitted reference range : <=1.0. The reference r leo was not used to int erpret this result as normal/abnormal . [facility] HospitalQjiikppHKGCGYFSPK3592-56-41 09:47:00 Test Item Value Reference Range Interpretation Comments Segs-Bands # (test code = Segs-Bands #) 5.9 1.5-8.1 N [facility] HospitalXzwypomZHFEGCODCV4002-56-92 09:47:00 Test Item Value Reference Range Interpretation Comments Lymphocytes # (test code = Lymphocytes 1.2 1.0-5.5 N #) [facility] HospitalStfagzrSGPDVSSAQP9990-18-38 09:47:00 Test Item Value Reference Range Interpretation Comments Monocytes # (test code 0.5 See_Comment N [Aut omated message] The = Monocytes #) system which generated this result tra nsmitted reference range : <=0.8. The reference r leo was not used to int erpret this result as normal/abnormal . [facility] HospitalKinpqpbYEPUHTEUFO2957-78-72 09:47:00 Test Item Value Reference Range Interpretation Comments Eosinophils # (test code 0.0 See_Comment N [A utomated message] The = Eosinophils #) system whic h generated this result tra nsmitted reference range : <=0.5. The reference r leo was not used to int erpret this result as normal/abnormal . [facility] HospitalTqnctsgUJMWOETXXS4253-51-60 09:47:00 Test Item Value Reference Range Interpretation Comments Segs (test code = Segs) 76.9 45.0-75.0 H [facility] HospitalYrlwhhtQTAOFUIVVG5596-20-78 09:47:00 Test Item Value Reference Range Interpretation Comments Lymphocytes (test code = Lymphocytes) 15.9 20.0-40.0 L [facility] HospitalNnlpqyrAEDEZMZKMG5474-98-92 09:47:00 Test Item Value Reference Range Interpretation Comments Monocytes (test code = Monocytes) 6.3 2.0-12.0 N [facility] HospitalCpqtsbgIYZQGYZZVM9660-61-21 09:47:00 Test Item Value Reference Range Interpretation Comments MCV (test code = MCV) 82.8 81.0-99.0 N [facility] HospitalZdhowgbXEKQYBIMMK9760-69-73 09:47:00 Test Item Value Reference Range Interpretation Comments Hct (test code = Hct) 39.7 36.0-48.0 N [facility] [facility]WKAEQGRTK2533[facility] 09:47:00 Test Item Value Reference Range Interpretation Comments MCH (test code = MCH) 29.1 pg 27.0-31.0 N [facility]NyfnhebUWHIYXZEVH2481-11-97 09:47:00 Test Item Value Reference Range Interpretation Comments Hgb (test code = Hgb) 14.0 12.0-16.0 N [facility] HospitalSwwtayyBLFIVTAEZT6181-56-71 09:47:00 Test Item Value Reference Range Interpretation Comments MCHC (test code = MCHC) 35.2 32.0-36.0 N [facility] HospitalTrtucxvARCWLZDXNQ7080-09-00 09:47:00 Test Item Value Reference Range Interpretation Comments RDW (test code = RDW) 13.9 11.5-14.5 N [facility] HospitalDhegihsXDIEJZNZKU0795-30-50 09:47:00 Test Item Value Reference Range Interpretation Comments Platelet (test code = Platelet) 160 133-450 N [facility] HospitalFtgxzlvWMKWYIZQTR2933-64-75 09:47:00 Test Item Value Reference Range Interpretation Comments MPV (test code = MPV) 11.9 7.4-10.4 H [facility] HospitalIjtwxqhITUTVAKTEJ9765-48-35 09:47:00 Test Item Value Reference Range Interpretation Comments WBC (test code = WBC) 7.7 3.7-10.4 N [facility] HospitalIacdoujCCCBYQNFPM9432-93-52 09:47:00 Test Item Value Reference Range Interpretation Comments RBC (test code = RBC) 4.80 4.20-5.40 N [facility] CenterJilgffmDWGXAHXES9039-42-95 10:28:00 Test Item Value Reference Range Interpretation Comments Phosphorus (test code = Phosphorus) 2.6 2.5-4.5 N [facility] CenterJltfazfPOXGJDWXP6961-42-53 10:28:00 Test Item Value Reference Range Interpretation Comments Magnesium Lvl (test code = Magnesium 1.8 1.8-2.4 N Lvl) [facility] CenterEalpjvsCTPLDCVCT7272-78-25 10:28:00 Test Item Value Reference Range Interpretation Comments Potassium Lvl (test code = Potassium 3.7 3.5-5.1 N Lvl) [facility] CenterEgsqrcpIJVVFGXDN5155-49-70 10:28:00 Test Item Value Reference Range Interpretation Comments Sodium Lvl (test code = Sodium Lvl) 137 135-145 N [facility] CenterVjtctujUSPNERBZL8547-81-94 10:28:00 Test Item Value Reference Range Interpretation Comments Creatinine Lvl (test code = Creatinine 0.6 0.5-1.4 N Lvl) [facility] CenterIkzslnnHGYWJKRNH6757-38-95 10:28:00 Test Item Value Reference Range Interpretation Comments BUN (test code = BUN) 16 7-22 N [facility] CenterOptcsgyJGOEHKHHG0802-41-10 10:28:00 Test Item Value Reference Range Interpretation Comments Glucose Lvl (test code = Glucose Lvl) 200 [facility] CenterPsqhwbzPPMWPOTTO7904-21-05 10:28:00 Test Item Value Reference Range Interpretation Comments Calcium Lvl (test code = Calcium Lvl) 8.3 8.5-10.5 L [facility] CenterGcnsvumFTYKQVVWO0740-31-49 10:28:00 Test Item Value Reference Range Interpretation Comments AGAP (test code = AGAP) 19.7 10.0-20.0 N [facility] CenterUokwkjhVONLZWQBL9167-20-14 10:28:00 Test Item Value Reference Range Interpretation Comments Chloride Lvl (test code = Chloride Lvl) 99 95-109 N [facility] CenterQxuzpymMRYCJSWVT5427-40-90 10:28:00 Test Item Value Reference Range Interpretation Comments CO2 (test code = CO2) 22 24-32 L [facility] HospitalSzjxqpqOQBOXUEFHK4559-91-40 10:28:00 Test Item Value Reference Range Interpretation Comments Platelet (test code = Platelet) 172 133-450 N [facility] HospitalVvszekmCQMLVNKOIR2293-48-04 10:28:00 Test Item Value Reference Range Interpretation Comments MPV (test code = MPV) 12.0 7.4-10.4 H [facility] HospitalCjejbnnKTBYAFNWCN7269-76-50 10:28:00 Test Item Value Reference Range Interpretation Comments WBC (test code = WBC) 7.3 3.7-10.4 N [facility] HospitalDidpyjxAZTQLIYAGD3964-47-89 10:28:00 Test Item Value Reference Range Interpretation Comments RDW (test code = RDW) 14.6 11.5-14.5 H [facility] HospitalSzxhfarKCVGXLMIGJ5280-68-53 10:28:00 Test Item Value Reference Range Interpretation Comments MCHC (test code = MCHC) 35.0 32.0-36.0 N [facility] HospitalCiaxpwiHEBMUHUKOT5721-97-46 10:28:00 Test Item Value Reference Range Interpretation Comments RBC (test code = RBC) 4.54 4.20-5.40 N [facility] HospitalVeuibreHNYHDTOETR1661-01-82 10:28:00 Test Item Value Reference Range Interpretation Comments Hct (test code = Hct) 37.6 36.0-48.0 N [facility] HospitalXumdqiqKWGWXRWDUV7091-06-58 10:28:00 Test Item Value Reference Range Interpretation Comments MCV (test code = MCV) 82.9 81.0-99.0 N [facility] HospitalQbnkvxvHZSMTIMGPT9528-01-32 10:28:00 Test Item Value Reference Range Interpretation Comments MCH (test code = MCH) 29.0 pg 27.0-31.0 N [facility] HospitalJkrphhpFBISZVBFNQ5206-83-92 10:28:00 Test Item Value Reference Range Interpretation Comments Hgb (test code = Hgb) 13.2 12.0-16.0 N [facility] HospitalIchzpifUBVFADKHLC1650-86-44 10:28:00 Test Item Value Reference Range Interpretation Comments Elliptocyte (test code = Slight A Elliptocyte) *ABN*(08/21/2011 04:28:00) [facility] HospitalMhsptdlOLISCMMXLF6879-45-03 10:28:00 Test Item Value Reference Range Interpretation Comments Polychrom (test code = Slight (08/21/2011 N Polychrom) 04:28:00) [facility] HospitalBqselkfJNEZIQUMMV6281-76-17 10:28:00 Test Item Value Reference Range Interpretation Comments Basophils # (test code 0.0 See_Comment N [Aut omated message] The = Basophils #) system which generated this result tra nsmitted reference range : <=0.2. The reference r leo was not used to int erpret this result as normal/abnormal . [facility] HospitalDzkkvzhWWXMTDXCXD7895-44-88 10:28:00 Test Item Value Reference Range Interpretation Comments Hypochrom (test code = Slight (08/21/2011 N Hypochrom) 04:28:00) [facility] HospitalPqixiezTWPBYFDUKP4672-87-70 10:28:00 Test Item Value Reference Range Interpretation Comments Monocytes # (test code 0.6 See_Comment N [Aut omated message] The = Monocytes #) system which generated this result tra nsmitted reference range : <=0.8. The reference r leo was not used to int erpret this result as normal/abnormal . [facility] HospitalThjoqjtUQFKMLBGWC3598-58-77 10:28:00 Test Item Value Reference Range Interpretation Comments Eosinophils # (test code 0.0 See_Comment N [A utomated message] The = Eosinophils #) system whic h generated this result tra nsmitted reference range : <=0.5. The reference r leo was not used to int erpret this result as normal/abnormal . [facility] HospitalYugqvkxXVNVHMZJRN8733-72-06 10:28:00 Test Item Value Reference Range Interpretation Comments Segs-Bands # (test code = Segs-Bands #) 5.3 1.5-8.1 N [facility] HospitalZfbxfrcXUMLDNXVOE4076-87-91 10:28:00 Test Item Value Reference Range Interpretation Comments Lymphocytes # (test code = Lymphocytes 1.3 1.0-5.5 N #) [facility] HospitalPkjmkqtJBYATLSGHM2224-43-68 10:28:00 Test Item Value Reference Range Interpretation Comments Basophils (test code = 0.5 See_Comment N [Aut omated message] The Basophils) system which ge nerated this result tra nsmitted reference range : <=1.0. The reference r leo was not used to int erpret this result as normal/abnormal . [facility] HospitalOopmkdvNFMURRPUMW0670-70-71 10:28:00 Test Item Value Reference Range Interpretation Comments Monocytes (test code = Monocytes) 8.5 2.0-12.0 N [facility] HospitalVhfkiolYJUTQDBNQJ6523-96-31 10:28:00 Test Item Value Reference Range Interpretation Comments Eosinophils (test code = 0.3 See_Comment N [A utomated message] The Eosinophils) system which ge nerated this result tra nsmitted reference range : <=4.0. The reference r leo was not used to int erpret this result as normal/abnormal . [facility] HospitalVafpmtdEJUKPMSRVF6899-67-35 10:28:00 Test Item Value Reference Range Interpretation Comments Lymphocytes (test code = Lymphocytes) 17.3 20.0-40.0 L [facility] HospitalCloywamSCDKNMPCLW0952-49-28 10:28:00 Test Item Value Reference Range Interpretation Comments Segs (test code = Segs) 73.4 45.0-75.0 N [facility] CenterFsbutraQBTYUJUYC2468-29-03 10:28:00 Test Item Value Reference Range Interpretation Comments Phosphorus (test code = Phosphorus) 2.6 2.5-4.5 N [facility] CenterJvswccgLHYWZIOVW4199-90-14 10:28:00 Test Item Value Reference Range Interpretation Comments Magnesium Lvl (test code = Magnesium 1.8 1.8-2.4 N Lvl) [facility] CenterBfykqctQIMJSERVV8071-43-91 10:28:00 Test Item Value Reference Range Interpretation Comments Potassium Lvl (test code = Potassium 3.7 3.5-5.1 N Lvl) [facility] CenterJdxpkzuXIMJWZOEV5185-89-74 10:28:00 Test Item Value Reference Range Interpretation Comments Sodium Lvl (test code = Sodium Lvl) 137 135-145 N [facility] CenterEefveqlVPWVUYQIC5578-13-82 10:28:00 Test Item Value Reference Range Interpretation Comments Creatinine Lvl (test code = Creatinine 0.6 0.5-1.4 N Lvl) [facility] CenterVneebfzQIZSXUILC6779-13-69 10:28:00 Test Item Value Reference Range Interpretation Comments BUN (test code = BUN) 16 7-22 N [facility] CenterLsnhapwCBXXVXCNZ4857-29-61 10:28:00 Test Item Value Reference Range Interpretation Comments Glucose Lvl (test code = Glucose Lvl) 200 [facility] CenterBrsfspeLOVKPRZDC6886-84-17 10:28:00 Test Item Value Reference Range Interpretation Comments Calcium Lvl (test code = Calcium Lvl) 8.3 8.5-10.5 L [facility] CenterSwcvornTEGULPLRJ6155-42-29 10:28:00 Test Item Value Reference Range Interpretation Comments AGAP (test code = AGAP) 19.7 10.0-20.0 N [facility] CenterBmsvkkwQSUMTALJO3406-76-10 10:28:00 Test Item Value Reference Range Interpretation Comments Chloride Lvl (test code = Chloride Lvl) 99 95-109 N [facility] CenterUpkkojrDQXECULLY2033-85-52 10:28:00 Test Item Value Reference Range Interpretation Comments CO2 (test code = CO2) 22 24-32 L [facility] HospitalGofdisfAYDYJTVAGX7751-01-49 10:28:00 Test Item Value Reference Range Interpretation Comments Platelet (test code = Platelet) 172 133-450 N [facility] HospitalExucpnaVSJZKGFNBL2784-93-41 10:28:00 Test Item Value Reference Range Interpretation Comments MPV (test code = MPV) 12.0 7.4-10.4 H [facility] HospitalUhunqujZPLDLWMRWD0403-96-92 10:28:00 Test Item Value Reference Range Interpretation Comments WBC (test code = WBC) 7.3 3.7-10.4 N [facility] HospitalNzypanzVZPGPLVKMF9845-55-37 10:28:00 Test Item Value Reference Range Interpretation Comments RDW (test code = RDW) 14.6 11.5-14.5 H [facility] HospitalFrdloxvVIERJBAMMF9068-60-75 10:28:00 Test Item Value Reference Range Interpretation Comments MCHC (test code = MCHC) 35.0 32.0-36.0 N [facility] HospitalXcauvtwZIQQYWVQDV8183-89-60 10:28:00 Test Item Value Reference Range Interpretation Comments RBC (test code = RBC) 4.54 4.20-5.40 N [facility] HospitalGeuzsyxTJWGEBVHJY7971-97-00 10:28:00 Test Item Value Reference Range Interpretation Comments Hct (test code = Hct) 37.6 36.0-48.0 N [facility] HospitalIgbcjqrMGOUGGYSBS4533-21-56 10:28:00 Test Item Value Reference Range Interpretation Comments MCV (test code = MCV) 82.9 81.0-99.0 N [facility] HospitalLsdbqyaZZVBLPNSNP2164-64-02 10:28:00 Test Item Value Reference Range Interpretation Comments MCH (test code = MCH) 29.0 pg 27.0-31.0 N [facility] HospitalOaivvhbOWIDEZRLEP8034-42-38 10:28:00 Test Item Value Reference Range Interpretation Comments Hgb (test code = Hgb) 13.2 12.0-16.0 N [facility] HospitalGzcyiacBLRVGYYCOI0233-76-06 10:28:00 Test Item Value Reference Range Interpretation Comments Elliptocyte (test code = Slight A Elliptocyte) *ABN*(08/21/2011 04:28:00) [facility] HospitalNybxymzRKWADURPAM9045-73-30 10:28:00 Test Item Value Reference Range Interpretation Comments Polychrom (test code = Slight (08/21/2011 N Polychrom) 04:28:00) [facility] HospitalVuicegmRPFXGLHAKJ9104-64-15 10:28:00 Test Item Value Reference Range Interpretation Comments Basophils # (test code 0.0 See_Comment N [Aut omated message] The = Basophils #) system which generated this result tra nsmitted reference range : <=0.2. The reference r leo was not used to int erpret this result as normal/abnormal . [facility] HospitalZgjdpotEPXECOPSVY3750-85-13 10:28:00 Test Item Value Reference Range Interpretation Comments Hypochrom (test code = Slight (08/21/2011 N Hypochrom) 04:28:00) [facility] HospitalCxsmxhpEDWBRXOKPA7411-52-94 10:28:00 Test Item Value Reference Range Interpretation Comments Monocytes # (test code 0.6 See_Comment N [Aut omated message] The = Monocytes #) system which generated this result tra nsmitted reference range : <=0.8. The reference r leo was not used to int erpret this result as normal/abnormal . [facility] HospitalFirhdfmMUBSIHQLLN2548-70-76 10:28:00 Test Item Value Reference Range Interpretation Comments Eosinophils # (test code 0.0 See_Comment N [A utomated message] The = Eosinophils #) system whic h generated this result tra nsmitted reference range : <=0.5. The reference r leo was not used to int erpret this result as normal/abnormal . [facility] HospitalWpomhghSFNBVMTLIN3917-43-59 10:28:00 Test Item Value Reference Range Interpretation Comments Segs-Bands # (test code = Segs-Bands #) 5.3 1.5-8.1 N [facility] HospitalKdcaidoGCIMTCPJTW1076-45-83 10:28:00 Test Item Value Reference Range Interpretation Comments Lymphocytes # (test code = Lymphocytes 1.3 1.0-5.5 N #) [facility] HospitalOosrypoTSWIBLIEHB9224-62-38 10:28:00 Test Item Value Reference Range Interpretation Comments Basophils (test code = 0.5 See_Comment N [Aut omated message] The Basophils) system which ge nerated this result tra nsmitted reference range : <=1.0. The reference r leo was not used to int erpret this result as normal/abnormal . [facility] HospitalTvqkdfmIERVVCTSEA2740-51-59 10:28:00 Test Item Value Reference Range Interpretation Comments Monocytes (test code = Monocytes) 8.5 2.0-12.0 N [facility] HospitalAvwnuagWLQTORFRGQ4299-78-54 10:28:00 Test Item Value Reference Range Interpretation Comments Eosinophils (test code = 0.3 See_Comment N [A utomated message] The Eosinophils) system which ge nerated this result tra nsmitted reference range : <=4.0. The reference r leo was not used to int erpret this result as normal/abnormal . [facility] HospitalTefxcknMRTLPNONSB6137-73-94 10:28:00 Test Item Value Reference Range Interpretation Comments Lymphocytes (test code = Lymphocytes) 17.3 20.0-40.0 L [facility] HospitalQkqrgabORSICZBOVQ7191-04-27 10:28:00 Test Item Value Reference Range Interpretation Comments Segs (test code = Segs) 73.4 45.0-75.0 N [facility] CenterUsyvrydXOJTXHJIS3739-15-65 10:28:00 Test Item Value Reference Range Interpretation Comments Phosphorus (test code = Phosphorus) 2.6 2.5-4.5 N [facility] CenterJszenezJCQMDTOEG2121-04-88 10:28:00 Test Item Value Reference Range Interpretation Comments Magnesium Lvl (test code = Magnesium 1.8 1.8-2.4 N Lvl) [facility] CenterPkrtgpaDDDSDOXHQ4213-26-31 10:28:00 Test Item Value Reference Range Interpretation Comments Potassium Lvl (test code = Potassium 3.7 3.5-5.1 N Lvl) [facility] CenterNistovhGHMBLNCSR2501-46-26 10:28:00 Test Item Value Reference Range Interpretation Comments Sodium Lvl (test code = Sodium Lvl) 137 135-145 N [facility] CenterNuzewooQJEZYDEKQ0244-44-14 10:28:00 Test Item Value Reference Range Interpretation Comments Creatinine Lvl (test code = Creatinine 0.6 0.5-1.4 N Lvl) [facility] CenterCubfhxyGYABHLAPH4498-60-28 10:28:00 Test Item Value Reference Range Interpretation Comments BUN (test code = BUN) 16 7-22 N [facility] CenterCcroiqrPIKZGVZSF0400-30-05 10:28:00 Test Item Value Reference Range Interpretation Comments Glucose Lvl (test code = Glucose Lvl) 200 [facility] CenterIgyutgcNNBUXKJEP6067-71-12 10:28:00 Test Item Value Reference Range Interpretation Comments Calcium Lvl (test code = Calcium Lvl) 8.3 8.5-10.5 L [facility] CenterRjmwctvUVDZYFTPN9581-07-50 10:28:00 Test Item Value Reference Range Interpretation Comments AGAP (test code = AGAP) 19.7 10.0-20.0 N [facility] CenterZvnzgggHVRKZHKAD6636-41-46 10:28:00 Test Item Value Reference Range Interpretation Comments Chloride Lvl (test code = Chloride Lvl) 99 95-109 N [facility] CenterPrytnfbYJSDVWBZR8872-15-24 10:28:00 Test Item Value Reference Range Interpretation Comments CO2 (test code = CO2) 22 24-32 L [facility] HospitalErwsqxyHBEADVULPR3848-42-05 10:28:00 Test Item Value Reference Range Interpretation Comments Platelet (test code = Platelet) 172 133-450 N [facility] HospitalIhpsyoqODPWPRDUEB2922-71-45 10:28:00 Test Item Value Reference Range Interpretation Comments MPV (test code = MPV) 12.0 7.4-10.4 H [facility] HospitalOenmsesBEPNRIEFEW7651-07-30 10:28:00 Test Item Value Reference Range Interpretation Comments WBC (test code = WBC) 7.3 3.7-10.4 N [facility] HospitalBbxxprxJILUDLLWIM4794-40-14 10:28:00 Test Item Value Reference Range Interpretation Comments RDW (test code = RDW) 14.6 11.5-14.5 H [facility] HospitalUwxkixhDGQZQBWGIV2210-50-30 10:28:00 Test Item Value Reference Range Interpretation Comments MCHC (test code = MCHC) 35.0 32.0-36.0 N [facility] HospitalKrmxeawMXZPBRQKKG1440-34-39 10:28:00 Test Item Value Reference Range Interpretation Comments RBC (test code = RBC) 4.54 4.20-5.40 N [facility] HospitalYucyuqoMHWZMSTFID4019-57-17 10:28:00 Test Item Value Reference Range Interpretation Comments Hct (test code = Hct) 37.6 36.0-48.0 N [facility] HospitalWiopbjeSIYCVZRLWW7964-34-89 10:28:00 Test Item Value Reference Range Interpretation Comments MCV (test code = MCV) 82.9 81.0-99.0 N [facility] HospitalUnwkaxgZVRAVZTTNM0039-15-01 10:28:00 Test Item Value Reference Range Interpretation Comments MCH (test code = MCH) 29.0 pg 27.0-31.0 N [facility] HospitalSndfoszDLCITVCRGB4698-10-64 10:28:00 Test Item Value Reference Range Interpretation Comments Hgb (test code = Hgb) 13.2 12.0-16.0 N [facility] HospitalDdggwudTNEQDFHQWF7723-49-33 10:28:00 Test Item Value Reference Range Interpretation Comments Elliptocyte (test code = Slight A Elliptocyte) *ABN*(08/21/2011 04:28:00) [facility] HospitalKjvqvuqBJOWRXOPOI8314-17-41 10:28:00 Test Item Value Reference Range Interpretation Comments Polychrom (test code = Slight (08/21/2011 N Polychrom) 04:28:00) [facility] HospitalWifipzfRBBUFCACLL4496-14-38 10:28:00 Test Item Value Reference Range Interpretation Comments Basophils # (test code 0.0 See_Comment N [Aut omated message] The = Basophils #) system which generated this result tra nsmitted reference range : <=0.2. The reference r leo was not used to int erpret this result as normal/abnormal . [facility] HospitalIwirlurYFBGXGVITD2446-22-42 10:28:00 Test Item Value Reference Range Interpretation Comments Hypochrom (test code = Slight (08/21/2011 N Hypochrom) 04:28:00) [facility] HospitalVdnljpxBGHIHQJWDZ3379-86-76 10:28:00 Test Item Value Reference Range Interpretation Comments Monocytes # (test code 0.6 See_Comment N [Aut omated message] The = Monocytes #) system which generated this result tra nsmitted reference range : <=0.8. The reference r leo was not used to int erpret this result as normal/abnormal . [facility] HospitalWqkklcrRWAARFIJUZ7633-94-14 10:28:00 Test Item Value Reference Range Interpretation Comments Eosinophils # (test code 0.0 See_Comment N [A utomated message] The = Eosinophils #) system whic h generated this result tra nsmitted reference range : <=0.5. The reference r leo was not used to int erpret this result as normal/abnormal . [facility] HospitalVwkurwgZUUOJUUGDJ3364-25-56 10:28:00 Test Item Value Reference Range Interpretation Comments Segs-Bands # (test code = Segs-Bands #) 5.3 1.5-8.1 N [facility] HospitalOuiqlnbWPVFYQSYMS9307-28-70 10:28:00 Test Item Value Reference Range Interpretation Comments Lymphocytes # (test code = Lymphocytes 1.3 1.0-5.5 N #) [facility] HospitalXcftqklAZXENTZXYF1393-57-22 10:28:00 Test Item Value Reference Range Interpretation Comments Basophils (test code = 0.5 See_Comment N [Aut omated message] The Basophils) system which ge nerated this result tra nsmitted reference range : <=1.0. The reference r leo was not used to int erpret this result as normal/abnormal . [facility] HospitalLznikjeJECYGBMBML9466-53-47 10:28:00 Test Item Value Reference Range Interpretation Comments Monocytes (test code = Monocytes) 8.5 2.0-12.0 N [facility] HospitalQrsfsfjAHNJZJHNHR0742-34-91 10:28:00 Test Item Value Reference Range Interpretation Comments Eosinophils (test code = 0.3 See_Comment N [A utomated message] The Eosinophils) system which ge nerated this result tra nsmitted reference range : <=4.0. The reference r leo was not used to int erpret this result as normal/abnormal . [facility] HospitalQpisckoAPNMHJRQXJ2557-02-51 10:28:00 Test Item Value Reference Range Interpretation Comments Lymphocytes (test code = Lymphocytes) 17.3 20.0-40.0 L [facility] HospitalRyvlecxGICVDNBPQO2526-68-85 10:28:00 Test Item Value Reference Range Interpretation Comments Segs (test code = Segs) 73.4 45.0-75.0 N [facility] CenterSxoknjcTFMYMMDDQ3763-26-82 10:28:00 Test Item Value Reference Range Interpretation Comments Phosphorus (test code = Phosphorus) 2.6 2.5-4.5 N [facility] CenterOngpezsEQZMNGDSF1559-23-65 10:28:00 Test Item Value Reference Range Interpretation Comments Magnesium Lvl (test code = Magnesium 1.8 1.8-2.4 N Lvl) [facility] CenterIdvegpzYRNYKNNLU5590-17-50 10:28:00 Test Item Value Reference Range Interpretation Comments Potassium Lvl (test code = Potassium 3.7 3.5-5.1 N Lvl) [facility] CenterAvqhwfbWAMZJSSRG9191-10-63 10:28:00 Test Item Value Reference Range Interpretation Comments Sodium Lvl (test code = Sodium Lvl) 137 135-145 N [facility] CenterYhyztuwRUVOSELJQ0117-62-20 10:28:00 Test Item Value Reference Range Interpretation Comments Creatinine Lvl (test code = Creatinine 0.6 0.5-1.4 N Lvl) [facility] CenterCkudvwtCXNTKKQHG7122-89-11 10:28:00 Test Item Value Reference Range Interpretation Comments BUN (test code = BUN) 16 7-22 N [facility] CenterJsixakaPTYWAHZDG7238-06-23 10:28:00 Test Item Value Reference Range Interpretation Comments Glucose Lvl (test code = Glucose Lvl) 200 [facility] CenterLmgetsbPYVUTITZL1308-79-57 10:28:00 Test Item Value Reference Range Interpretation Comments Calcium Lvl (test code = Calcium Lvl) 8.3 8.5-10.5 L [facility] CenterGhbspbqJYFUPRPFA0181-90-89 10:28:00 Test Item Value Reference Range Interpretation Comments AGAP (test code = AGAP) 19.7 10.0-20.0 N [facility] CenterHytogwfBVYFTFBJV4964-20-10 10:28:00 Test Item Value Reference Range Interpretation Comments Chloride Lvl (test code = Chloride Lvl) 99 95-109 N [facility] CenterGtcpgdaSISIGCALH1091-35-27 10:28:00 Test Item Value Reference Range Interpretation Comments CO2 (test code = CO2) 22 24-32 L [facility] HospitalHanrycgHZZREFFFXS2202-43-62 10:28:00 Test Item Value Reference Range Interpretation Comments Platelet (test code = Platelet) 172 133-450 N [facility] HospitalVrquufrGBNRSJCVNW6037-90-46 10:28:00 Test Item Value Reference Range Interpretation Comments MPV (test code = MPV) 12.0 7.4-10.4 H [facility] HospitalIfsqwywAKVFNEMAZY1229-23-58 10:28:00 Test Item Value Reference Range Interpretation Comments WBC (test code = WBC) 7.3 3.7-10.4 N [facility] HospitalFhjpnvyYBUYOKMDZB0259-78-81 10:28:00 Test Item Value Reference Range Interpretation Comments RDW (test code = RDW) 14.6 11.5-14.5 H [facility] HospitalUpwbvuiDXJKISTHEY9108-07-47 10:28:00 Test Item Value Reference Range Interpretation Comments MCHC (test code = MCHC) 35.0 32.0-36.0 N [facility] HospitalDsgnuweBDOTEMXEKL6123-82-67 10:28:00 Test Item Value Reference Range Interpretation Comments RBC (test code = RBC) 4.54 4.20-5.40 N [facility]CmwiykyQFAFDPSNOJ7304-59-07 10:28:00 Test Item Value Reference Range Interpretation Comments Hct (test code = Hct) 37.6 36.0-48.0 N [facility]GmxuurwINNYJMJFCD0864-42-76 10:28:00 Test Item Value Reference Range Interpretation Comments MCV (test code = MCV) 82.9 81.0-99.0 N [facility] HospitalLkdgquvQYEXLIFCRN4222-90-70 10:28:00 Test Item Value Reference Range Interpretation Comments MCH (test code = MCH) 29.0 pg 27.0-31.0 N [facility] HospitalLuzyqfdQTXKEMWBST1377-95-72 10:28:00 Test Item Value Reference Range Interpretation Comments Hgb (test code = Hgb) 13.2 12.0-16.0 N [facility] HospitalEfakvnkTTHCRUSEDT2024-56-73 10:28:00 Test Item Value Reference Range Interpretation Comments Elliptocyte (test code = Slight A Elliptocyte) *ABN*(08/21/2011 04:28:00) [facility] HospitalTptgzlcRNPKUBUQMR7261-84-45 10:28:00 Test Item Value Reference Range Interpretation Comments Polychrom (test code = Slight (08/21/2011 N Polychrom) 04:28:00) [facility] HospitalRloqcfwOHEZETYOBT8234-30-71 10:28:00 Test Item Value Reference Range Interpretation Comments Basophils # (test code 0.0 See_Comment N [Aut omated message] The = Basophils #) system which generated this result tra nsmitted reference range : <=0.2. The reference r leo was not used to int erpret this result as normal/abnormal . [facility] HospitalFxszfdwQTSWXQQUUW9548-13-87 10:28:00 Test Item Value Reference Range Interpretation Comments Hypochrom (test code = Slight (08/21/2011 N Hypochrom) 04:28:00) [facility] HospitalIzfucqtVAGHLMKVSD9533-04-60 10:28:00 Test Item Value Reference Range Interpretation Comments Monocytes # (test code 0.6 See_Comment N [Aut omated message] The = Monocytes #) system which generated this result tra nsmitted reference range : <=0.8. The reference r leo was not used to int erpret this result as normal/abnormal . [facility] HospitalIvfzvosVLXORPMTEM5993-23-56 10:28:00 Test Item Value Reference Range Interpretation Comments Eosinophils # (test code 0.0 See_Comment N [A utomated message] The = Eosinophils #) system whic h generated this result tra nsmitted reference range : <=0.5. The reference r leo was not used to int erpret this result as normal/abnormal . [facility] HospitalDzoiqloOBFNAYDCYZ7025-30-27 10:28:00 Test Item Value Reference Range Interpretation Comments Segs-Bands # (test code = Segs-Bands #) 5.3 1.5-8.1 N [facility] HospitalYbmrclgENFIUUESWX7571-68-72 10:28:00 Test Item Value Reference Range Interpretation Comments Lymphocytes # (test code = Lymphocytes 1.3 1.0-5.5 N #) [facility] HospitalMzltxoyDLLEZTTAIC9163-11-01 10:28:00 Test Item Value Reference Range Interpretation Comments Basophils (test code = 0.5 See_Comment N [Aut omated message] The Basophils) system which ge nerated this result tra nsmitted reference range : <=1.0. The reference r leo was not used to int erpret this result as normal/abnormal . [facility] HospitalJttbtqoQOJODYJRHH4079-84-39 10:28:00 Test Item Value Reference Range Interpretation Comments Monocytes (test code = Monocytes) 8.5 2.0-12.0 N [facility] HospitalBxefnpcDJJTSOTCKG5379-69-02 10:28:00 Test Item Value Reference Range Interpretation Comments Eosinophils (test code = 0.3 See_Comment N [A utomated message] The Eosinophils) system which ge nerated this result tra nsmitted reference range : <=4.0. The reference r leo was not used to int erpret this result as normal/abnormal . [facility] HospitalOxsjpdmSDDLHABFHC3559-82-46 10:28:00 Test Item Value Reference Range Interpretation Comments Lymphocytes (test code = Lymphocytes) 17.3 20.0-40.0 L [facility] HospitalBfcjdtjDJUISAVGQV3809-83-61 10:28:00 Test Item Value Reference Range Interpretation Comments Segs (test code = Segs) 73.4 45.0-75.0 N [facility] CenterFawawvtZWZVYJSVX6992-03-00 10:28:00 Test Item Value Reference Range Interpretation Comments Phosphorus (test code = Phosphorus) 2.6 2.5-4.5 N [facility] CenterQuqabbtQSASTIRPY8386-28-60 10:28:00 Test Item Value Reference Range Interpretation Comments Magnesium Lvl (test code = Magnesium 1.8 1.8-2.4 N Lvl) [facility] CenterZdvhwnxFOMWWWFRU8287-99-58 10:28:00 Test Item Value Reference Range Interpretation Comments Potassium Lvl (test code = Potassium 3.7 3.5-5.1 N Lvl) [facility] CenterOzyhoqiKCABOFNKX7369-35-54 10:28:00 Test Item Value Reference Range Interpretation Comments Sodium Lvl (test code = Sodium Lvl) 137 135-145 N [facility] CenterJxfienyKNMKHTECL6502-44-38 10:28:00 Test Item Value Reference Range Interpretation Comments Creatinine Lvl (test code = Creatinine 0.6 0.5-1.4 N Lvl) [facility] CenterEamgmrpEDQPDPAOM5691-71-80 10:28:00 Test Item Value Reference Range Interpretation Comments BUN (test code = BUN) 16 7-22 N [facility] CenterUwezexvSFXJSEEQX5719-27-10 10:28:00 Test Item Value Reference Range Interpretation Comments Glucose Lvl (test code = Glucose Lvl) 200 [facility] CenterGtwltpbKLIACABMZ4905-89-23 10:28:00 Test Item Value Reference Range Interpretation Comments Calcium Lvl (test code = Calcium Lvl) 8.3 8.5-10.5 L [facility] CenterDvenjdlULJJCJGWE8887-12-13 10:28:00 Test Item Value Reference Range Interpretation Comments AGAP (test code = AGAP) 19.7 10.0-20.0 N [facility] CenterEjienkrRGFRDDQTZ9044-17-89 10:28:00 Test Item Value Reference Range Interpretation Comments Chloride Lvl (test code = Chloride Lvl) 99 95-109 N [facility] CenterUszwhduOCBTKSIUH6172-52-71 10:28:00 Test Item Value Reference Range Interpretation Comments CO2 (test code = CO2) 22 24-32 L [facility] HospitalBuipjndUPENERHZIV8921-18-35 10:28:00 Test Item Value Reference Range Interpretation Comments Platelet (test code = Platelet) 172 133-450 N [facility] HospitalYknnbyzLXASZXSFXJ9787-33-26 10:28:00 Test Item Value Reference Range Interpretation Comments MPV (test code = MPV) 12.0 7.4-10.4 H [facility] HospitalMcgxsqfOVEYRLOSEZ2360-84-40 10:28:00 Test Item Value Reference Range Interpretation Comments WBC (test code = WBC) 7.3 3.7-10.4 N [facility] HospitalPssxnjuUUBMETZEVS6546-23-42 10:28:00 Test Item Value Reference Range Interpretation Comments RDW (test code = RDW) 14.6 11.5-14.5 H [facility] HospitalPiwndazQZVAQOLWDS8592-43-40 10:28:00 Test Item Value Reference Range Interpretation Comments MCHC (test code = MCHC) 35.0 32.0-36.0 N [facility] HospitalJuqebbtNMTSNZNULD8317-65-37 10:28:00 Test Item Value Reference Range Interpretation Comments RBC (test code = RBC) 4.54 4.20-5.40 N [facility] HospitalOoeecsrDMMYXZQNLN3814-69-40 10:28:00 Test Item Value Reference Range Interpretation Comments Hct (test code = Hct) 37.6 36.0-48.0 N [facility] HospitalAocpolfBHJWVXXIPH7707-88-70 10:28:00 Test Item Value Reference Range Interpretation Comments MCV (test code = MCV) 82.9 81.0-99.0 N [facility] HospitalEctcimiBCCMNIORJC5077-02-98 10:28:00 Test Item Value Reference Range Interpretation Comments MCH (test code = MCH) 29.0 pg 27.0-31.0 N [facility] HospitalYgqeaojHZAOCFHPHE0690-89-22 10:28:00 Test Item Value Reference Range Interpretation Comments Hgb (test code = Hgb) 13.2 12.0-16.0 N [facility] HospitalFrdunhrWFYFFRWECN5233-37-41 10:28:00 Test Item Value Reference Range Interpretation Comments Elliptocyte (test code = Slight A Elliptocyte) *ABN*(08/21/2011 04:28:00) [facility] HospitalWeyuvlwDKHYBEKBWT6556-08-67 10:28:00 Test Item Value Reference Range Interpretation Comments Polychrom (test code = Slight (08/21/2011 N Polychrom) 04:28:00) [facility] HospitalSmcxqbbHOQGBBRDDV6638-00-75 10:28:00 Test Item Value Reference Range Interpretation Comments Basophils # (test code 0.0 See_Comment N [Aut omated message] The = Basophils #) system which generated this result tra nsmitted reference range : <=0.2. The reference r leo was not used to int erpret this result as normal/abnormal . [facility] HospitalXxoohcvCURLQTXUAV3349-79-13 10:28:00 Test Item Value Reference Range Interpretation Comments Hypochrom (test code = Slight (08/21/2011 N Hypochrom) 04:28:00) [facility] HospitalVspnohrEUNCUJEGJW6751-51-54 10:28:00 Test Item Value Reference Range Interpretation Comments Monocytes # (test code 0.6 See_Comment N [Aut omated message] The = Monocytes #) system which generated this result tra nsmitted reference range : <=0.8. The reference r leo was not used to int erpret this result as normal/abnormal . [facility] HospitalYtdxrvfRLYYBTSSMZ2102-94-58 10:28:00 Test Item Value Reference Range Interpretation Comments Eosinophils # (test code 0.0 See_Comment N [A utomated message] The = Eosinophils #) system whic h generated this result tra nsmitted reference range : <=0.5. The reference r leo was not used to int erpret this result as normal/abnormal . [facility] HospitalIpbzxozMYNYIKEMUF0147-76-31 10:28:00 Test Item Value Reference Range Interpretation Comments Segs-Bands # (test code = Segs-Bands #) 5.3 1.5-8.1 N [facility] HospitalFyjlavbZKEJLIOSYL9909-42-39 10:28:00 Test Item Value Reference Range Interpretation Comments Lymphocytes # (test code = Lymphocytes 1.3 1.0-5.5 N #) [facility] HospitalKgatsjzTXJJLTCSFI5167-72-00 10:28:00 Test Item Value Reference Range Interpretation Comments Basophils (test code = 0.5 See_Comment N [Aut omated message] The Basophils) system which ge nerated this result tra nsmitted reference range : <=1.0. The reference r leo was not used to int erpret this result as normal/abnormal . [facility] HospitalTqwdecnGKIZWRDNMS4949-48-29 10:28:00 Test Item Value Reference Range Interpretation Comments Monocytes (test code = Monocytes) 8.5 2.0-12.0 N [facility] HospitalVayaezzTFCWAPGSYR5220-21-97 10:28:00 Test Item Value Reference Range Interpretation Comments Eosinophils (test code = 0.3 See_Comment N [A utomated message] The Eosinophils) system which ge nerated this result tra nsmitted reference range : <=4.0. The reference r leo was not used to int erpret this result as normal/abnormal . [facility] HospitalXmjfokrCZEYPNKFTA0563-26-99 10:28:00 Test Item Value Reference Range Interpretation Comments Lymphocytes (test code = Lymphocytes) 17.3 20.0-40.0 L [facility] HospitalMosotvaUGWAQKTNLA7652-72-02 10:28:00 Test Item Value Reference Range Interpretation Comments Segs (test code = Segs) 73.4 45.0-75.0 N [facility] GLUCOSE WZXLNAC1033-09-88 07:47:00 Test Item Value Reference Range Interpretation Comments Comment2 (test code = Comment2) Verify w/Lab [facility] GLUCOSE YXVIMZT0012-74-23 07:47:00 Test Item Value Reference Range Interpretation Comments Comment2 (test code = Comment2) Verify w/Lab [facility] GLUCOSE WWLCVPT4085-16-54 07:47:00 Test Item Value Reference Range Interpretation Comments Comment2 (test code = Comment2) Verify w/Lab [facility] GLUCOSE ZHFPGCT0399-54-56 07:47:00 Test Item Value Reference Range Interpretation Comments Comment2 (test code = Comment2) Verify w/Lab [facility] GLUCOSE XKRSRMY6691-33-65 07:47:00 Test Item Value Reference Range Interpretation Comments Comment2 (test code = Comment2) [facility]BwmomvuGROAGXCAC2094-46-69 21:58:00 Test Item Value Reference Range Interpretation Comments S Preg (test code = S Negative (08/19/2011 N Preg) 15:58:00) [facility] CenterQkgnmgnKJSSPWWOI2765-28-17 21:58:00 Test Item Value Reference Range Interpretation Comments Lipase Lvl (test code = Lipase Lvl) 169 73-393 N [facility] CenterDofilujQXQBBLXOX9668-13-20 21:58:00 Test Item Value Reference Range Interpretation Comments ALT (test code = ALT) 54 See_Comment N [Auto mated message] The system which ge nerated this result transmit rohit reference range : <=65. The reference range was not used to interpr et this result as reji l/abnormal. [facility] CenterVaeomzdPPWNZVKWL8262-90-54 21:58:00 Test Item Value Reference Range Interpretation Comments Alk Phos (test code = Alk Phos) 110 39-136 N [facility] CenterGcmtoxlNLAAWUANX3606-79-73 21:58:00 Test Item Value Reference Range Interpretation Comments Bili Direct (test code 0.1 See_Comment N [Aut omated message] The = Bili Direct) system which generated this result tra nsmitted reference range : <=0.3. The reference r leo was not used to int erpret this result as reji l/abnormal. [facility] CenterAshylurRLPUFHTRR9683-84-38 21:58:00 Test Item Value Reference Range Interpretation Comments Bili Total (test code = Bili Total) 0.9 0.2-1.3 N [facility] CenterMllqgpuYVJNYIIQR0381-56-15 21:58:00 Test Item Value Reference Range Interpretation Comments Albumin Lvl (test code = Albumin Lvl) 4.4 3.5-5.0 N [facility] CenterBaeugigETJBMLDPD3002-89-80 21:58:00 Test Item Value Reference Range Interpretation Comments Total Protein (test code = Total 8.8 6.4-8.4 H Protein) [facility] CenterLdapoywEHJWDYJXX3261-73-51 21:58:00 Test Item Value Reference Range Interpretation Comments Bili Indirect (test 0.8 See_Comment N [Automa rohit message] The code = Bili Indirect) system which generated this result tra nsmitted reference range : <=1.0. The reference r leo was not used to int erpret this result as normal/abnormal . [facility] CenterDpxrztpCISKMKMBO5014-00-88 21:58:00 Test Item Value Reference Range Interpretation Comments AST (test code = AST) 36 See_Comment N [Auto mated message] The system which ge nerated this result transmit rohit reference range : <=37. The reference range was not used to interpr et this result as reji l/abnormal. [facility] CenterKyvujwdPGHXDHIIF2485-54-89 21:58:00 Test Item Value Reference Range Interpretation Comments Globulin (test code = Globulin) 4.4 2.0-4.0 H [facility] CenterPuimfdcAZXKHMOOD3195-86-81 21:58:00 Test Item Value Reference Range Interpretation Comments A/G Ratio (test code = A/G Ratio) 1.0 0.7-1.6 N [facility]AnkjzyaOBNNGJDKGS0489-52-33 21:58:00 Test Item Value Reference Range Interpretation Comments UA Bacteria (test code Occasional /HPF N = UA Bacteria) (08/19/2011 15:58:00) [facility] CenterQsaufjrMZMBURJUOB2367-80-50 21:58:00 Test Item Value Reference Range Interpretation Comments UA RBC (test 3-5 /HPF See_Comment A [Automated mes pastor] code = UA RBC) *ABN*(08/19/2011 The syste m which 15:58:00) generated this result transmitted ref erence range: <=2. The reference range was not used to int erpret this result as normal/abnormal . [facility] CenterPevdqjtYKIZHOGSVC7716-70-39 21:58:00 Test Item Value Reference Range Interpretation Comments UA WBC (test code = 3 See_Comment [Automa rohit message] The UA WBC) system which ge nerated this result transmit rohit reference range : <=5. The reference range was not used to interpr et this result as reji l/abnormal. [facility] CenterXnpqljyDUYQRVGEEK9847-76-89 21:58:00 Test Item Value Reference Range Interpretation Comments UA Mucus (test code = Few /LPF (08/19/2011 N UA Mucus) 15:58:00) [facility]XlbxnarNVGWRXRRBL8859-15-03 21:58:00 Test Item Value Reference Range Interpretation Comments UA Amorph Destiny (test Occasional /HPF A code = UA Amorph *ABN*(08/19/2011 Destiny) 15:58:00) [facility]EizeproQBWPCPVNKS4937-39-69 21:58:00 Test Item Value Reference Range Interpretation Comments UA Urobilinogen (test code = UA 0.2 0.1-1.0 N Urobilinogen) [facility]TbhokbqONGWLUHLON7147-26-04 21:58:00 Test Item Value Reference Range Interpretation Comments UA Sq Epi (test code = Rare /LPF (08/19/2011 N UA Sq Epi) 15:58:00) [facility]PywgxcpCTUXNKHMBK6575-65-45 21:58:00 Test Item Value Reference Range Interpretation Comments Micro? (test code = Performed (08/19/2011 N Micro?) 15:58:00) [facility] CenterZblcdduNLBICBVHND4783-78-30 21:58:00 Test Item Value Reference Range Interpretation Comments UA Leuk Est (test Negative (08/19/2011 N code = UA Leuk Est) 15:58:00) [facility]OoktcbqUOTDJQOFHA8443-94-89 21:58:00 Test Item Value Reference Range Interpretation Comments UA Nitrite (test code Negative (08/19/2011 N = UA Nitrite) 15:58:00) [facility]anoZiiwtpdLVAIPZFQAX4232-16-42 21:58:00 Test Item Value Reference Range Interpretation Comments UA pH (test code = UA pH) 5.5 1 5.0-8.0 N [facility] CenterXafdhcaFWKEFFDGHT0951-74-61 21:58:00 Test Item Value Reference Range Interpretation Comments UA Blood (test code = Trace *ABN*(08/19/2011 A UA Blood) 15:58:00) [facility]VbevmjwLNQTECBRUT2784-65-98 21:58:00 Test Item Value Reference Range Interpretation Comments UA Bili (test code = Negative (08/19/2011 N UA Bili) 15:58:00) [facility]anoQkymhuqNOIFDQUARY7262-77-91 21:58:00 Test Item Value Reference Range Interpretation Comments UA Ketones (test code = 80 mg/dL A UA Ketones) *ABN*(08/19/2011 15:58:00) [facility] CenterRafnlhnVZTODLWNIR9272-74-87 21:58:00 Test Item Value Reference Range Interpretation Comments UA Glucose (test code = >=1000 mg/dL A UA Glucose) *ABN*(08/19/2011 15:58:00) [facility] CenterQieovuxUEFKAEYSVS7834-53-57 21:58:00 Test Item Value Reference Range Interpretation Comments UA Protein (test code Negative (08/19/2011 N = UA Protein) 15:58:00) [facility] CenterScwrgmwLRYIPIDUDC0055-89-89 21:58:00 Test Item Value Reference Range Interpretation Comments UA Turbidity (test code Slight Cloudy N = UA Turbidity) (08/19/2011 15:58:00) [facility] CenterFummgltBZXFKRNGGG8105-02-70 21:58:00 Test Item Value Reference Range Interpretation Comments UA Spec Grav (test code = UA Spec 1.025 1 Grav) [facility] CenterNwzohlwJGZFUILMNZ2237-89-61 21:58:00 Test Item Value Reference Range Interpretation Comments UA Color (test code = Yellow (08/19/2011 N UA Color) 15:58:00) [facility] CenterFyezdzwYALXENWBF6707-52-35 21:58:00 Test Item Value Reference Range Interpretation Comments S Preg (test code = S Negative (08/19/2011 N Preg) 15:58:00) [facility] CenterYbbkhisXEEPFGXQD4789-32-28 21:58:00 Test Item Value Reference Range Interpretation Comments Lipase Lvl (test code = Lipase Lvl) 169 73-393 N [facility] CenterQifsgziGJXYKFZUD5255-59-46 21:58:00 Test Item Value Reference Range Interpretation Comments ALT (test code = ALT) 54 See_Comment N [Auto mated message] The system which ge nerated this result transmit rohit reference range : <=65. The reference range was not used to interpr et this result as reji l/abnormal. [facility] CenterHnkmwpaTJQNQGSTF8991-54-85 21:58:00 Test Item Value Reference Range Interpretation Comments Alk Phos (test code = Alk Phos) 110 39-136 N [facility] CenterBqfijdcHGAFCWTDU0991-17-11 21:58:00 Test Item Value Reference Range Interpretation Comments Bili Direct (test code 0.1 See_Comment N [Aut omated message] The = Bili Direct) system which generated this result tra nsmitted reference range : <=0.3. The reference r leo was not used to int erpret this result as reji l/abnormal. [facility] CenterRzkpswaJQKADPEAK1762-95-46 21:58:00 Test Item Value Reference Range Interpretation Comments Bili Total (test code = Bili Total) 0.9 0.2-1.3 N [facility] CenterMwgsoczXFSNOVLEC5371-05-42 21:58:00 Test Item Value Reference Range Interpretation Comments Albumin Lvl (test code = Albumin Lvl) 4.4 3.5-5.0 N [facility] CenterTvsaimqAARAOOMHZ6315-39-16 21:58:00 Test Item Value Reference Range Interpretation Comments Total Protein (test code = Total 8.8 6.4-8.4 H Protein) [facility] CenterQgfxvokNDQKJFSRH1662-76-34 21:58:00 Test Item Value Reference Range Interpretation Comments Bili Indirect (test 0.8 See_Comment N [Automa rohit message] The code = Bili Indirect) system which generated this result tra nsmitted reference range : <=1.0. The reference r leo was not used to int erpret this result as normal/abnormal . [facility]QccfqmsZPTUCGEBN2743-58-84 21:58:00 Test Item Value Reference Range Interpretation Comments AST (test code = AST) 36 See_Comment N [Auto mated message] The system which ge nerated this result transmit rohit reference range : <=37. The reference range was not used to interpr et this result as reji l/abnormal. [facility] CenterSzfngtyQKRGNZCDI8056-87-99 21:58:00 Test Item Value Reference Range Interpretation Comments Globulin (test code = Globulin) 4.4 2.0-4.0 H [facility] CenterNrdlhlzKTKBYPOVK2327-42-36 21:58:00 Test Item Value Reference Range Interpretation Comments A/G Ratio (test code = A/G Ratio) 1.0 0.7-1.6 N [facility] CenterKmjlrajTEATRAYNNJ5820-63-47 21:58:00 Test Item Value Reference Range Interpretation Comments UA Bacteria (test code Occasional /HPF N = UA Bacteria) (08/19/2011 15:58:00) [facility] CenterAffyxtoZJNHKXXBOQ6640-98-40 21:58:00 Test Item Value Reference Range Interpretation Comments UA RBC (test 3-5 /HPF See_Comment A [Automated mes pastor] code = UA RBC) *ABN*(08/19/2011 The syste m which 15:58:00) generated this result transmitted ref erence range: <=2. The reference range was not used to int erpret this result as normal/abnormal . [facility] CenterYrpfuoaDFWWUTXAUG2947-22-84 21:58:00 Test Item Value Reference Range Interpretation Comments UA WBC (test code = 3 See_Comment [Automa rohit message] The UA WBC) system which ge nerated this result transmit rohit reference range : <=5. The reference range was not used to interpr et this result as reji l/abnormal. [facility]anoLlpfvfuQBMITVJIYT4564-32-69 21:58:00 Test Item Value Reference Range Interpretation Comments UA Mucus (test code = Few /LPF (08/19/2011 N UA Mucus) 15:58:00) [facility] CenterRfvcroiHZHHEAQVAZ5778-81-89 21:58:00 Test Item Value Reference Range Interpretation Comments UA Amorph Destiny (test Occasional /HPF A code = UA Amorph *ABN*(08/19/2011 Destiny) 15:58:00) [facility]anoVyzrxzjTSQUNKQAYF3683-21-42 21:58:00 Test Item Value Reference Range Interpretation Comments UA Urobilinogen (test code = UA 0.2 0.1-1.0 N Urobilinogen) [facility]anoAuuptidWRBRSSIDFK8046-34-47 21:58:00 Test Item Value Reference Range Interpretation Comments UA Sq Epi (test code = Rare /LPF (08/19/2011 N UA Sq Epi) 15:58:00) [facility]anoKkluzfmDNESNKXBNO5974-08-96 21:58:00 Test Item Value Reference Range Interpretation Comments Micro? (test code = Performed (08/19/2011 N Micro?) 15:58:00) [facility]anoGvyywkzLTMPFXVFPD9896-71-66 21:58:00 Test Item Value Reference Range Interpretation Comments UA Leuk Est (test Negative (08/19/2011 N code = UA Leuk Est) 15:58:00) [facility]anoCvpepibEGHRLKQQIJ3573-02-13 21:58:00 Test Item Value Reference Range Interpretation Comments UA Nitrite (test code Negative (08/19/2011 N = UA Nitrite) 15:58:00) [facility]anoXqiztloZCRKJJNZRB2491-69-56 21:58:00 Test Item Value Reference Range Interpretation Comments UA pH (test code = UA pH) 5.5 1 5.0-8.0 N [facility]anoPziupogUXHNPJGLXG4511-34-18 21:58:00 Test Item Value Reference Range Interpretation Comments UA Blood (test code = Trace *ABN*(08/19/2011 A UA Blood) 15:58:00) [facility] [facility]XupblqmNIUVYUOMVE1735-90-84 21:58:00 Test Item Value Reference Range Interpretation Comments UA Bili (test code = Negative (08/19/2011 N UA Bili) 15:58:00) [facility]EtelmkiBZMIKNTGBR6387-85-03 21:58:00 Test Item Value Reference Range Interpretation Comments UA Ketones (test code = 80 mg/dL A UA Ketones) *ABN*(08/19/2011 15:58:00) [facility]anoEdlsghiJMHSDIROEU6728-16-54 21:58:00 Test Item Value Reference Range Interpretation Comments UA Glucose (test code = >=1000 mg/dL A UA Glucose) *ABN*(08/19/2011 15:58:00) [facility]XnsfluzFDVVZNJFYW9829-46-75 21:58:00 Test Item Value Reference Range Interpretation Comments UA Protein (test code Negative (08/19/2011 N = UA Protein) 15:58:00) [facility]anoHmlchfyDZLCTRNSWV6628-58-57 21:58:00 Test Item Value Reference Range Interpretation Comments UA Turbidity (test code Slight Cloudy N = UA Turbidity) (08/19/2011 15:58:00) [facility]anoOkspqezWUCPQIFEXT4328-22-09 21:58:00 Test Item Value Reference Range Interpretation Comments UA Spec Grav (test code = UA Spec 1.025 1 Grav) [facility]anoJehddzeABBKUVWTSA0838-71-33 21:58:00 Test Item Value Reference Range Interpretation Comments UA Color (test code = Yellow (08/19/2011 N UA Color) 15:58:00) [facility] CenterDeqlzyoJKDGJJQHH2997-29-04 21:58:00 Test Item Value Reference Range Interpretation Comments S Preg (test code = S Negative (08/19/2011 N Preg) 15:58:00) [facility] CenterKynoilhZVSTWGZSD4833-49-36 21:58:00 Test Item Value Reference Range Interpretation Comments Lipase Lvl (test code = Lipase Lvl) 169 73-393 N [facility] CenterRhcqergSCRLOJVKZ9091-05-48 21:58:00 Test Item Value Reference Range Interpretation Comments ALT (test code = ALT) 54 See_Comment N [Auto mated message] The system which ge nerated this result transmit rohit reference range : <=65. The reference range was not used to interpr et this result as reji l/abnormal. [facility] CenterRzetvaxWYGNBWSAS3909-55-97 21:58:00 Test Item Value Reference Range Interpretation Comments Alk Phos (test code = Alk Phos) 110 39-136 N [facility] CenterVzbvnmvLVFMVUVAG3171-17-83 21:58:00 Test Item Value Reference Range Interpretation Comments Bili Direct (test code 0.1 See_Comment N [Aut omated message] The = Bili Direct) system which generated this result tra nsmitted reference range : <=0.3. The reference r leo was not used to int erpret this result as reji l/abnormal. [facility] CenterPjhsndtASOZFLCGX3201-20-75 21:58:00 Test Item Value Reference Range Interpretation Comments Bili Total (test code = Bili Total) 0.9 0.2-1.3 N [facility] CenterYivnidsOTFYFEUDS6078-45-28 21:58:00 Test Item Value Reference Range Interpretation Comments Albumin Lvl (test code = Albumin Lvl) 4.4 3.5-5.0 N [facility] CenterOxphdtkAEZPJFBPL4429-17-49 21:58:00 Test Item Value Reference Range Interpretation Comments Total Protein (test code = Total 8.8 6.4-8.4 H Protein) [facility] CenterIkscnlgOAZMXMJEJ6071-25-84 21:58:00 Test Item Value Reference Range Interpretation Comments Bili Indirect (test 0.8 See_Comment N [Automa rohit message] The code = Bili Indirect) system which generated this result tra nsmitted reference range : <=1.0. The reference r leo was not used to int erpret this result as normal/abnormal . [facility] CenterCdchexgYVOMORLSS4622-21-27 21:58:00 Test Item Value Reference Range Interpretation Comments AST (test code = AST) 36 See_Comment N [Auto mated message] The system which ge nerated this result transmit rohit reference range : <=37. The reference range was not used to interpr et this result as reji l/abnormal. [facility] CenterYzswxzeOVFBMQMFA3473-89-62 21:58:00 Test Item Value Reference Range Interpretation Comments Globulin (test code = Globulin) 4.4 2.0-4.0 H [facility] CenterYidfzozJUUNGMMKJ4901-91-30 21:58:00 Test Item Value Reference Range Interpretation Comments A/G Ratio (test code = A/G Ratio) 1.0 0.7-1.6 N [facility]anoYgkzjpjCCARKVTTRU8106-42-17 21:58:00 Test Item Value Reference Range Interpretation Comments UA Bacteria (test code Occasional /HPF N = UA Bacteria) (08/19/2011 15:58:00) [facility] CenterKvwotsvVUNYOMHUKK2700-21-27 21:58:00 Test Item Value Reference Range Interpretation Comments UA RBC (test 3-5 /HPF See_Comment A [Automated mes pastor] code = UA RBC) *ABN*(08/19/2011 The syste m which 15:58:00) generated this result transmitted ref erence range: <=2. The reference range was not used to int erpret this result as normal/abnormal . [facility] CenterIcemrjhEGVZLBGIRN9434-93-98 21:58:00 Test Item Value Reference Range Interpretation Comments UA WBC (test code = 3 See_Comment [Automa rohit message] The UA WBC) system which ge nerated this result transmit rohit reference range : <=5. The reference range was not used to interpr et this result as reji l/abnormal. [facility] CenterZodahjfBUEPKZRYAF7714-40-48 21:58:00 Test Item Value Reference Range Interpretation Comments UA Mucus (test code = Few /LPF (08/19/2011 N UA Mucus) 15:58:00) [facility]anoIjfvoiwPRNLMKNLUY8963-19-92 21:58:00 Test Item Value Reference Range Interpretation Comments UA Amorph Destiny (test Occasional /HPF A code = UA Amorph *ABN*(08/19/2011 Destiny) 15:58:00) [facility]anoKbvefduSRLOSDPJFB8401-47-15 21:58:00 Test Item Value Reference Range Interpretation Comments UA Urobilinogen (test code = UA 0.2 0.1-1.0 N Urobilinogen) [facility]anoMotvjmxDQCWBVBVPB5213-01-86 21:58:00 Test Item Value Reference Range Interpretation Comments UA Sq Epi (test code = Rare /LPF (08/19/2011 N UA Sq Epi) 15:58:00) [facility] CenterSdqyfyoSMRCLJMMMW4200-83-25 21:58:00 Test Item Value Reference Range Interpretation Comments Micro? (test code = Performed (08/19/2011 N Micro?) 15:58:00) [facility]anoSwxaszwHBLJRMQJTM9750-69-17 21:58:00 Test Item Value Reference Range Interpretation Comments UA Leuk Est (test Negative (08/19/2011 N code = UA Leuk Est) 15:58:00) [facility] CenterZvnzvgdEPLWXZDFMQ1716-87-08 21:58:00 Test Item Value Reference Range Interpretation Comments UA Nitrite (test code Negative (08/19/2011 N = UA Nitrite) 15:58:00) [facility] CenterGfghofeKJEDBAPEVE6021-07-78 21:58:00 Test Item Value Reference Range Interpretation Comments UA pH (test code = UA pH) 5.5 1 5.0-8.0 N [facility]anoAsickkhMPWCNPJOYE6656-53-42 21:58:00 Test Item Value Reference Range Interpretation Comments UA Blood (test code = Trace *ABN*(08/19/2011 A UA Blood) 15:58:00) [facility] CenterOtxqcrxEEICUUZVZF5782-20-18 21:58:00 Test Item Value Reference Range Interpretation Comments UA Bili (test code = Negative (08/19/2011 N UA Bili) 15:58:00) [facility]anoSxexbdhUZMBNTHCMJ5538-79-49 21:58:00 Test Item Value Reference Range Interpretation Comments UA Ketones (test code = 80 mg/dL A UA Ketones) *ABN*(08/19/2011 15:58:00) [facility] CenterSzipltgQWBXPBXZPZ6497-57-79 21:58:00 Test Item Value Reference Range Interpretation Comments UA Glucose (test code = >=1000 mg/dL A UA Glucose) *ABN*(08/19/2011 15:58:00) [facility]anoCbracwxPNBQUQLBKP9383-75-54 21:58:00 Test Item Value Reference Range Interpretation Comments UA Protein (test code Negative (08/19/2011 N = UA Protein) 15:58:00) [facility] CenterFjvjubnZAZPJYQSIH2453-96-85 21:58:00 Test Item Value Reference Range Interpretation Comments UA Turbidity (test code Slight Cloudy N = UA Turbidity) (08/19/2011 15:58:00) [facility] CenterBugopcdULKQHAWSJQ3142-73-42 21:58:00 Test Item Value Reference Range Interpretation Comments UA Spec Grav (test code = UA Spec 1.025 1 Grav) [facility]anoMeyzyqcCHFCSEYVAX7650-59-86 21:58:00 Test Item Value Reference Range Interpretation Comments UA Color (test code = Yellow (08/19/2011 N UA Color) 15:58:00) [facility] CenterSxqisuxMAGEJZZYE4266-07-34 21:58:00 Test Item Value Reference Range Interpretation Comments S Preg (test code = S Negative (08/19/2011 N Preg) 15:58:00) [facility] CenterPcuydwbGMPDNKVCX3518-60-50 21:58:00 Test Item Value Reference Range Interpretation Comments Lipase Lvl (test code = Lipase Lvl) 169 73-393 N [facility] CenterMhuwzqfZXLUPZEOV2863-93-15 21:58:00 Test Item Value Reference Range Interpretation Comments ALT (test code = ALT) 54 See_Comment N [Auto mated message] The system which ge nerated this result transmit rohit reference range : <=65. The reference range was not used to interpr et this result as reji l/abnormal. [facility] CenterQzmvmxiNMPGDAOKV0550-57-62 21:58:00 Test Item Value Reference Range Interpretation Comments Alk Phos (test code = Alk Phos) 110 39-136 N [facility] CenterPtllmfoLHVLJSPTA9989-87-07 21:58:00 Test Item Value Reference Range Interpretation Comments Bili Direct (test code 0.1 See_Comment N [Aut omated message] The = Bili Direct) system which generated this result tra nsmitted reference range : <=0.3. The reference r leo was not used to int erpret this result as reji l/abnormal. [facility] CenterBtjaeteQJTPZCKTM5274-98-71 21:58:00 Test Item Value Reference Range Interpretation Comments Bili Total (test code = Bili Total) 0.9 0.2-1.3 N [facility] CenterQbjdmevSHBHEDTYQ4783-68-67 21:58:00 Test Item Value Reference Range Interpretation Comments Albumin Lvl (test code = Albumin Lvl) 4.4 3.5-5.0 N [facility] CenterAoimtcqSAWQJULAW5224-74-29 21:58:00 Test Item Value Reference Range Interpretation Comments Total Protein (test code = Total 8.8 6.4-8.4 H Protein) [facility] CenterWjgbwthADULXSFPM7881-49-42 21:58:00 Test Item Value Reference Range Interpretation Comments Bili Indirect (test 0.8 See_Comment N [Automa rohit message] The code = Bili Indirect) system which generated this result tra nsmitted reference range : <=1.0. The reference r leo was not used to int erpret this result as normal/abnormal . [facility] CenterObfyourBHPRNHVXS7073-55-08 21:58:00 Test Item Value Reference Range Interpretation Comments AST (test code = AST) 36 See_Comment N [Auto mated message] The system which ge nerated this result transmit rohit reference range : <=37. The reference range was not used to interpr et this result as reji l/abnormal. [facility] CenterQdgdniiSFXHTENKU2515-83-92 21:58:00 Test Item Value Reference Range Interpretation Comments Globulin (test code = Globulin) 4.4 2.0-4.0 H [facility] CenterPncgpxkPOKVLTETZ5129-27-58 21:58:00 Test Item Value Reference Range Interpretation Comments A/G Ratio (test code = A/G Ratio) 1.0 0.7-1.6 N [facility]anoGvpvnrhYUJZCPWPGB7190-78-19 21:58:00 Test Item Value Reference Range Interpretation Comments UA Bacteria (test code Occasional /HPF N = UA Bacteria) (08/19/2011 15:58:00) [facility]anoCorvcbzRKLUAAXMXJ8490-65-60 21:58:00 Test Item Value Reference Range Interpretation Comments UA RBC (test 3-5 /HPF See_Comment A [Automated mes pastor] code = UA RBC) *ABN*(08/19/2011 The syste m which 15:58:00) generated this result transmitted ref erence range: <=2. The reference range was not used to int erpret this result as normal/abnormal . [facility] CenterHilhqueXXXLGKRSYK7258-46-03 21:58:00 Test Item Value Reference Range Interpretation Comments UA WBC (test code = 3 See_Comment [Automa rohit message] The UA WBC) system which ge nerated this result transmit rohit reference range : <=5. The reference range was not used to interpr et this result as reji l/abnormal. [facility]anoAvuigyrBQXGLDCQZV6395-48-14 21:58:00 Test Item Value Reference Range Interpretation Comments UA Mucus (test code = Few /LPF (08/19/2011 N UA Mucus) 15:58:00) [facility] CenterQckwmpgXNUBTVJADS4030-61-31 21:58:00 Test Item Value Reference Range Interpretation Comments UA Amorph Destiny (test Occasional /HPF A code = UA Amorph *ABN*(08/19/2011 Destiny) 15:58:00) [facility]anoNsenybaVKROQQRYAH9911-45-90 21:58:00 Test Item Value Reference Range Interpretation Comments UA Urobilinogen (test code = UA 0.2 0.1-1.0 N Urobilinogen) [facility]anoUxwkilhQUZWGYBZOW1487-53-28 21:58:00 Test Item Value Reference Range Interpretation Comments UA Sq Epi (test code = Rare /LPF (08/19/2011 N UA Sq Epi) 15:58:00) [facility] CenterYzhxhdkXTLTFBVANW7039-25-81 21:58:00 Test Item Value Reference Range Interpretation Comments Micro? (test code = Performed (08/19/2011 N Micro?) 15:58:00) [facility] CenterSnyuwqyPEYYKCMWFG7343-09-05 21:58:00 Test Item Value Reference Range Interpretation Comments UA Leuk Est (test Negative (08/19/2011 N code = UA Leuk Est) 15:58:00) [facility] CenterIvajsauJCREPAYMEV2172-10-77 21:58:00 Test Item Value Reference Range Interpretation Comments UA Nitrite (test code Negative (08/19/2011 N = UA Nitrite) 15:58:00) [facility] CenterCiwdhcmVUWONNNDXN1441-18-26 21:58:00 Test Item Value Reference Range Interpretation Comments UA pH (test code = UA pH) 5.5 1 5.0-8.0 N [facility]anoFxtfwapECUNVTKRWF3638-54-33 21:58:00 Test Item Value Reference Range Interpretation Comments UA Blood (test code = Trace *ABN*(08/19/2011 A UA Blood) 15:58:00) [facility]anoUadzdpaKOWNJJRWCV1469-07-45 21:58:00 Test Item Value Reference Range Interpretation Comments UA Bili (test code = Negative (08/19/2011 N UA Bili) 15:58:00) [facility]anoXkrrnsvIIBLLQCEIQ5085-18-03 21:58:00 Test Item Value Reference Range Interpretation Comments UA Ketones (test code = 80 mg/dL A UA Ketones) *ABN*(08/19/2011 15:58:00) [facility] CenterKknrrqlYQIDRCVBRP2455-09-97 21:58:00 Test Item Value Reference Range Interpretation Comments UA Glucose (test code = >=1000 mg/dL A UA Glucose) *ABN*(08/19/2011 15:58:00) [facility] CenterRypbgxoBCJVMSBPFB2237-03-46 21:58:00 Test Item Value Reference Range Interpretation Comments UA Protein (test code Negative (08/19/2011 N = UA Protein) 15:58:00) [facility] CenterPhpmwvuJSEKDLOQNQ8524-94-62 21:58:00 Test Item Value Reference Range Interpretation Comments UA Turbidity (test code Slight Cloudy N = UA Turbidity) (08/19/2011 15:58:00) [facility] CenterNxshbzmIPLINVFUYH5663-74-19 21:58:00 Test Item Value Reference Range Interpretation Comments UA Spec Grav (test code = UA Spec 1.025 1 Grav) [facility] CenterHstiwztTCKTCGCIOP1753-50-03 21:58:00 Test Item Value Reference Range Interpretation Comments UA Color (test code = Yellow (08/19/2011 N UA Color) 15:58:00) [facility] CenterKxwcwogZDEYSKSHB1623-92-50 21:58:00 Test Item Value Reference Range Interpretation Comments S Preg (test code = S Negative (08/19/2011 N Preg) 15:58:00) [facility] CenterZmqzzrcEIEZTVSGH1282-86-88 21:58:00 Test Item Value Reference Range Interpretation Comments Lipase Lvl (test code = Lipase Lvl) 169 73-393 N [facility] CenterRtapgzgYOCFGPHHN2072-88-33 21:58:00 Test Item Value Reference Range Interpretation Comments ALT (test code = ALT) 54 See_Comment N [Auto mated message] The system which ge nerated this result transmit roiht reference range : <=65. The reference range was not used to interpr et this result as reji l/abnormal. [facility] CenterEizcoojQOMDRRUEL7190-58-41 21:58:00 Test Item Value Reference Range Interpretation Comments Alk Phos (test code = Alk Phos) 110 39-136 N [facility] CenterJpveltoMLDXNUZHQ7973-10-90 21:58:00 Test Item Value Reference Range Interpretation Comments Bili Direct (test code 0.1 See_Comment N [Aut omated message] The = Bili Direct) system which generated this result tra nsmitted reference range : <=0.3. The reference r leo was not used to int erpret this result as reji l/abnormal. [facility] CenterMkresxeJSLUHNHMJ4666-20-05 21:58:00 Test Item Value Reference Range Interpretation Comments Bili Total (test code = Bili Total) 0.9 0.2-1.3 N [facility] CenterPlobahdAORKAXIIO4904-36-56 21:58:00 Test Item Value Reference Range Interpretation Comments Albumin Lvl (test code = Albumin Lvl) 4.4 3.5-5.0 N [facility] CenterUjvsmzhCKIRLTXUT4743-88-47 21:58:00 Test Item Value Reference Range Interpretation Comments Total Protein (test code = Total 8.8 6.4-8.4 H Protein) [facility] CenterFxhryouUEFZIAGGI4527-16-09 21:58:00 Test Item Value Reference Range Interpretation Comments Bili Indirect (test 0.8 See_Comment N [Automa rohit message] The code = Bili Indirect) system which generated this result tra nsmitted reference range : <=1.0. The reference r leo was not used to int erpret this result as normal/abnormal . [facility] CenterIjnqiniMJJVTLEOV2119-55-90 21:58:00 Test Item Value Reference Range Interpretation Comments AST (test code = AST) 36 See_Comment N [Auto mated message] The system which ge nerated this result transmit rohit reference range : <=37. The reference range was not used to interpr et this result as reji l/abnormal. [facility] CenterMrpcjfcJVLETYZXG9178-46-42 21:58:00 Test Item Value Reference Range Interpretation Comments Globulin (test code = Globulin) 4.4 2.0-4.0 H [facility] CenterOqxfbbfFRQZACLPV9686-88-79 21:58:00 Test Item Value Reference Range Interpretation Comments A/G Ratio (test code = A/G Ratio) 1.0 0.7-1.6 N [facility] CenterFsvtffuJBFEHMZJJI7259-62-92 21:58:00 Test Item Value Reference Range Interpretation Comments UA Bacteria (test code Occasional /HPF N = UA Bacteria) (08/19/2011 15:58:00) [facility]anoTjdcrocOTSXAGJDEW6539-89-30 21:58:00 Test Item Value Reference Range Interpretation Comments UA RBC (test 3-5 /HPF See_Comment A [Automated mes pastor] code = UA RBC) *ABN*(08/19/2011 The syste m which 15:58:00) generated this result transmitted ref erence range: <=2. The reference range was not used to int erpret this result as normal/abnormal . [facility]anoIcpwujxXRIHDQTAPQ9884-46-69 21:58:00 Test Item Value Reference Range Interpretation Comments UA WBC (test code = 3 See_Comment [Automa rohit message] The UA WBC) system which ge nerated this result transmit rohit reference range : <=5. The reference range was not used to interpr et this result as reji l/abnormal. [facility] CenterUkpjcyxKGZIVVECRE0863-56-64 21:58:00 Test Item Value Reference Range Interpretation Comments UA Mucus (test code = Few /LPF (08/19/2011 N UA Mucus) 15:58:00) [facility]anoImkiixiIZXFAXWGHL2605-39-74 21:58:00 Test Item Value Reference Range Interpretation Comments UA Amorph Destiny (test Occasional /HPF A code = UA Amorph *ABN*(08/19/2011 Destiny) 15:58:00) [facility]anoMszoshdGPFWDKEBOS3001-89-01 21:58:00 Test Item Value Reference Range Interpretation Comments UA Urobilinogen (test code = UA 0.2 0.1-1.0 N Urobilinogen) [facility]anoUpbxiygKVEXRHLRGO5740-08-79 21:58:00 Test Item Value Reference Range Interpretation Comments UA Sq Epi (test code = Rare /LPF (08/19/2011 N UA Sq Epi) 15:58:00) [facility]anoGsxyezgVIANTXCNEE1474-06-22 21:58:00 Test Item Value Reference Range Interpretation Comments Micro? (test code = Performed (08/19/2011 N Micro?) 15:58:00) [facility]anoSqhehhaPEKOBLSKYY1876-57-35 21:58:00 Test Item Value Reference Range Interpretation Comments UA Leuk Est (test Negative (08/19/2011 N code = UA Leuk Est) 15:58:00) [facility] CenterVirrrpsYHFMPEDJOL7629-04-52 21:58:00 Test Item Value Reference Range Interpretation Comments UA Nitrite (test code Negative (08/19/2011 N = UA Nitrite) 15:58:00) [facility] CenterQjnkdqkMUDAOABZRH0211-47-19 21:58:00 Test Item Value Reference Range Interpretation Comments UA pH (test code = UA pH) 5.5 1 5.0-8.0 N [facility] CenterMvzxvvwMFOTEYPRVF2857-12-44 21:58:00 Test Item Value Reference Range Interpretation Comments UA Blood (test code = Trace *ABN*(08/19/2011 A UA Blood) 15:58:00) [facility] CenterCgpahunGAOPTRBGUX7273-78-23 21:58:00 Test Item Value Reference Range Interpretation Comments UA Bili (test code = Negative (08/19/2011 N UA Bili) 15:58:00) [facility] CenterJvkxyfeQSEAFADSWW8008-36-22 21:58:00 Test Item Value Reference Range Interpretation Comments UA Ketones (test code = 80 mg/dL A UA Ketones) *ABN*(08/19/2011 15:58:00) [facility] CenterLzkfewaXJRVQNMNQL9991-39-58 21:58:00 Test Item Value Reference Range Interpretation Comments UA Glucose (test code = >=1000 mg/dL A UA Glucose) *ABN*(08/19/2011 15:58:00) [facility] CenterGsfzliuSLUGFNRRVX1468-06-34 21:58:00 Test Item Value Reference Range Interpretation Comments UA Protein (test code Negative (08/19/2011 N = UA Protein) 15:58:00) [facility] CenterTpgqkqvKSGMTLFPSB1000-34-63 21:58:00 Test Item Value Reference Range Interpretation Comments UA Turbidity (test code Slight Cloudy N = UA Turbidity) (08/19/2011 15:58:00) [facility] CenterGnpohapJQULTKRVFP4123-17-63 21:58:00 Test Item Value Reference Range Interpretation Comments UA Spec Grav (test code = UA Spec 1.025 1 Grav) [facility] CenterOqqptvaISHCLKTXHH0666-39-66 21:58:00 Test Item Value Reference Range Interpretation Comments UA Color (test code = Yellow (08/19/2011 N UA Color) 15:58:00) [facility] CenterWtcghhnEBGIRBPRF6906-61-13 21:13:00 Test Item Value Reference Range Interpretation Comments AST (test code = AST) 23 See_Comment N [Auto mated message] The system which ge nerated this result transmit rohit reference range : <=37. The reference range was not used to interpr et this result as reji l/abnormal. [facility] CenterMxgzqmlXSXNKOYOP2081-95-20 21:13:00 Test Item Value Reference Range Interpretation Comments Bili Total (test code = Bili Total) 1.0 0.2-1.3 N [facility] CenterCsfczfrZLNWVLKJO8307-98-38 21:13:00 Test Item Value Reference Range Interpretation Comments Alk Phos (test code = Alk Phos) 115 39-136 N [facility] CenterZhxpqbyKCIPDRZWU2216-11-90 21:13:00 Test Item Value Reference Range Interpretation Comments ALT (test code = ALT) 56 See_Comment N [Auto mated message] The system which ge nerated this result transmit rohit reference range : <=65. The reference range was not used to interpr et this result as reji l/abnormal. [facility] CenterIzyutehVDEDDYBCH3729-91-11 21:13:00 Test Item Value Reference Range Interpretation Comments Total Protein (test code = Total 9.0 6.4-8.4 H Protein) [facility] CenterLtnofbdVHNGJICNR3601-25-88 21:13:00 Test Item Value Reference Range Interpretation Comments Albumin Lvl (test code = Albumin Lvl) 4.8 3.5-5.0 N [facility] CenterCauegbeEKUDCHGCY4043-90-79 21:13:00 Test Item Value Reference Range Interpretation Comments Globulin (test code = Globulin) 4.2 2.0-4.0 H [facility] CenterZuqnwqpDHTPUKANL8972-37-28 21:13:00 Test Item Value Reference Range Interpretation Comments A/G Ratio (test code = A/G Ratio) 1.1 0.7-1.6 N [facility] CenterScsqatrMPFJBIAUI7354-56-13 21:13:00 Test Item Value Reference Range Interpretation Comments B/C Ratio (test code = B/C Ratio) 30 6-25 H [facility]ErbmqqmSPQSXXKHNO5359-28-77 21:13:00 Test Item Value Reference Range Interpretation Comments RBC Morph (test code = Normal (08/19/2011 N RBC Morph) 15:13:00) [facility]JfpdbtqPUNJUWGCFP1760-77-16 21:13:00 Test Item Value Reference Range Interpretation Comments Large Plt (test code = Slight *ABN*(08/19/2011 A Large Plt) 15:13:00) [facility] HospitalSxaltglKDMFBGISTB1443-43-89 21:13:00 Test Item Value Reference Range Interpretation Comments Atypical Lymphs (test code = Atypical 0.0 N Lymphs) [facility] HospitalOexjsruVBOUBBSUJG2452-49-17 21:13:00 Test Item Value Reference Range Interpretation Comments Bands (test code = 0.0 See_Comment N [Automat ed message] The Bands) system which ge nerated this result transmit rohit reference range : <=11.0. The reference r leo was not used to interpr et this result as reji l/abnormal. [facility] CenterWvefavtWIXWJXJCD7158-39-47 21:13:00 Test Item Value Reference Range Interpretation Comments AST (test code = AST) 23 See_Comment N [Auto mated message] The system which ge nerated this result transmit rohit reference range : <=37. The reference range was not used to interpr et this result as reji l/abnormal. [facility] CenterXqywiygPQWVHPOEH3793-68-51 21:13:00 Test Item Value Reference Range Interpretation Comments Bili Total (test code = Bili Total) 1.0 0.2-1.3 N [facility] CenterQvnskdyJEUAFCCVF9582-32-08 21:13:00 Test Item Value Reference Range Interpretation Comments Alk Phos (test code = Alk Phos) 115 39-136 N [facility] CenterWuswylkOJQPGMIQC1857-56-04 21:13:00 Test Item Value Reference Range Interpretation Comments ALT (test code = ALT) 56 See_Comment N [Auto mated message] The system which ge nerated this result transmit rohit reference range : <=65. The reference range was not used to interpr et this result as reji l/abnormal. [facility] CenterKmgupfuQKCOLYGIQ0186-87-52 21:13:00 Test Item Value Reference Range Interpretation Comments Total Protein (test code = Total 9.0 6.4-8.4 H Protein) [facility] CenterOveqitrNOMFTOOYQ1320-68-54 21:13:00 Test Item Value Reference Range Interpretation Comments Albumin Lvl (test code = Albumin Lvl) 4.8 3.5-5.0 N [facility] CenterOrefrviJOFNEYDAX0509-08-93 21:13:00 Test Item Value Reference Range Interpretation Comments Globulin (test code = Globulin) 4.2 2.0-4.0 H [facility] CenterFmokbyqNKWRVYSCM5204-47-34 21:13:00 Test Item Value Reference Range Interpretation Comments A/G Ratio (test code = A/G Ratio) 1.1 0.7-1.6 N [facility] CenterXwisoycNJBNRMVJW8172-37-57 21:13:00 Test Item Value Reference Range Interpretation Comments B/C Ratio (test code = B/C Ratio) 30 6-25 H [facility] HospitalHcjvfysWSKTCNEJAP4311-43-03 21:13:00 Test Item Value Reference Range Interpretation Comments RBC Morph (test code = Normal (08/19/2011 N RBC Morph) 15:13:00) [facility] HospitalQkbchrkSAGSSAWMMO6318-20-88 21:13:00 Test Item Value Reference Range Interpretation Comments Large Plt (test code = Slight *ABN*(08/19/2011 A Large Plt) 15:13:00) [facility] HospitalTkujixoURJOHMLYRR4114-99-74 21:13:00 Test Item Value Reference Range Interpretation Comments Atypical Lymphs (test code = Atypical 0.0 N Lymphs) [facility] HospitalUdjrljtIGSRMMFBUE1509-24-65 21:13:00 Test Item Value Reference Range Interpretation Comments Bands (test code = 0.0 See_Comment N [Automat ed message] The Bands) system which ge nerated this result transmit rohit reference range : <=11.0. The reference r leo was not used to interpr et this result as reji l/abnormal. [facility] CenterUdozzynTKTPPTXXQ9980-13-61 21:13:00 Test Item Value Reference Range Interpretation Comments AST (test code = AST) 23 See_Comment N [Auto mated message] The system which ge nerated this result transmit rohit reference range : <=37. The reference range was not used to interpr et this result as reji l/abnormal. [facility] CenterLfmdjkpSDDNDSFKM5324-15-62 21:13:00 Test Item Value Reference Range Interpretation Comments Bili Total (test code = Bili Total) 1.0 0.2-1.3 N [facility] CenterLzxkibmVQXSKHHEE7904-12-83 21:13:00 Test Item Value Reference Range Interpretation Comments Alk Phos (test code = Alk Phos) 115 39-136 N [facility] CenterGahyibpZQKMIXDTC7092-75-75 21:13:00 Test Item Value Reference Range Interpretation Comments ALT (test code = ALT) 56 See_Comment N [Auto mated message] The system which ge nerated this result transmit rohit reference range : <=65. The reference range was not used to interpr et this result as reji l/abnormal. [facility] CenterGaamytgJHJRADHWX3755-38-90 21:13:00 Test Item Value Reference Range Interpretation Comments Total Protein (test code = Total 9.0 6.4-8.4 H Protein) [facility] CenterQhsznhgLHJNDOLZQ4057-75-86 21:13:00 Test Item Value Reference Range Interpretation Comments Albumin Lvl (test code = Albumin Lvl) 4.8 3.5-5.0 N [facility] CenterPvswtrdHMMTGVOUD0974-18-29 21:13:00 Test Item Value Reference Range Interpretation Comments Globulin (test code = Globulin) 4.2 2.0-4.0 H [facility] CenterIdgofniRRJMDCOIE3220-67-52 21:13:00 Test Item Value Reference Range Interpretation Comments A/G Ratio (test code = A/G Ratio) 1.1 0.7-1.6 N [facility] CenterKkwmntrZLQIDDKDZ5887-15-95 21:13:00 Test Item Value Reference Range Interpretation Comments B/C Ratio (test code = B/C Ratio) 30 6-25 H [facility] HospitalTagwhdwVRNDKUKVLS5329-67-31 21:13:00 Test Item Value Reference Range Interpretation Comments RBC Morph (test code = Normal (08/19/2011 N RBC Morph) 15:13:00) [facility] HospitalAlotfjoPTLUQGIPNZ6076-53-33 21:13:00 Test Item Value Reference Range Interpretation Comments Large Plt (test code = Slight *ABN*(08/19/2011 A Large Plt) 15:13:00) [facility] HospitalMrroxooKIKCLDVLHG1182-36-76 21:13:00 Test Item Value Reference Range Interpretation Comments Atypical Lymphs (test code = Atypical 0.0 N Lymphs) [facility] HospitalLgjotraUSPXSIRGZA0275-39-57 21:13:00 Test Item Value Reference Range Interpretation Comments Bands (test code = 0.0 See_Comment N [Automat ed message] The Bands) system which ge nerated this result transmit rohit reference range : <=11.0. The reference r leo was not used to interpr et this result as reji l/abnormal. [facility] CenterRgaicwsLBEQMAHXM4422-78-75 21:13:00 Test Item Value Reference Range Interpretation Comments AST (test code = AST) 23 See_Comment N [Auto mated message] The system which ge nerated this result transmit rohit reference range : <=37. The reference range was not used to interpr et this result as reji l/abnormal. [facility] CenterTztfmmpTWKUPVBJS1970-66-96 21:13:00 Test Item Value Reference Range Interpretation Comments Bili Total (test code = Bili Total) 1.0 0.2-1.3 N [facility] CenterTrbrnzvHZJHKNCFB8198-93-87 21:13:00 Test Item Value Reference Range Interpretation Comments Alk Phos (test code = Alk Phos) 115 39-136 N [facility] CenterTefxacfCLBLFOGAU1407-43-15 21:13:00 Test Item Value Reference Range Interpretation Comments ALT (test code = ALT) 56 See_Comment N [Auto mated message] The system which ge nerated this result transmit rohit reference range : <=65. The reference range was not used to interpr et this result as reji l/abnormal. [facility] CenterUdgjzhdALZLBRRKS7111-39-03 21:13:00 Test Item Value Reference Range Interpretation Comments Total Protein (test code = Total 9.0 6.4-8.4 H Protein) [facility] CenterMifsnkjVFYARYPMQ0015-19-57 21:13:00 Test Item Value Reference Range Interpretation Comments Albumin Lvl (test code = Albumin Lvl) 4.8 3.5-5.0 N [facility] CenterJqllnyySVHQUFARE7263-36-90 21:13:00 Test Item Value Reference Range Interpretation Comments Globulin (test code = Globulin) 4.2 2.0-4.0 H [facility] CenterAazameyDZIYPWXGH8448-24-63 21:13:00 Test Item Value Reference Range Interpretation Comments A/G Ratio (test code = A/G Ratio) 1.1 0.7-1.6 N [facility] CenterBkybkzcWMHDWMHAY6624-88-70 21:13:00 Test Item Value Reference Range Interpretation Comments B/C Ratio (test code = B/C Ratio) 30 6-25 H [facility] HospitalDopdrxmXSCEALPOTB9040-55-64 21:13:00 Test Item Value Reference Range Interpretation Comments RBC Morph (test code = Normal (08/19/2011 N RBC Morph) 15:13:00) [facility] HospitalPtvinpyYJKGKSSTTS5877-22-30 21:13:00 Test Item Value Reference Range Interpretation Comments Large Plt (test code = Slight *ABN*(08/19/2011 A Large Plt) 15:13:00) [facility] HospitalHicdmjqYDASRJIYEM8022-75-15 21:13:00 Test Item Value Reference Range Interpretation Comments Atypical Lymphs (test code = Atypical 0.0 N Lymphs) [facility] HospitalHlwwcakFSUPLULQKG1670-08-03 21:13:00 Test Item Value Reference Range Interpretation Comments Bands (test code = 0.0 See_Comment N [Automat ed message] The Bands) system which ge nerated this result transmit rohit reference range : <=11.0. The reference r leo was not used to interpr et this result as reji l/abnormal. [facility] CenterEisesrpKBEJUUNCD1675-85-66 21:13:00 Test Item Value Reference Range Interpretation Comments AST (test code = AST) 23 See_Comment N [Auto mated message] The system which ge nerated this result transmit rohit reference range : <=37. The reference range was not used to interpr et this result as reji l/abnormal. [facility] CenterXjkvjoiEZSWFBJZA1620-89-22 21:13:00 Test Item Value Reference Range Interpretation Comments Bili Total (test code = Bili Total) 1.0 0.2-1.3 N [facility] CenterEvbvdktXSEOXRNSP4541-80-72 21:13:00 Test Item Value Reference Range Interpretation Comments Alk Phos (test code = Alk Phos) 115 39-136 N [facility] CenterVibornoHCHDGCKXC4839-71-36 21:13:00 Test Item Value Reference Range Interpretation Comments ALT (test code = ALT) 56 See_Comment N [Auto mated message] The system which ge nerated this result transmit rohit reference range : <=65. The reference range was not used to interpr et this result as reji l/abnormal. [facility] CenterDnwquyhQSKKWRSVD6300-25-04 21:13:00 Test Item Value Reference Range Interpretation Comments Total Protein (test code = Total 9.0 6.4-8.4 H Protein) [facility] CenterQwdlvycUOJNSTFZU1385-94-93 21:13:00 Test Item Value Reference Range Interpretation Comments Albumin Lvl (test code = Albumin Lvl) 4.8 3.5-5.0 N [facility] CenterVrjxdjpHJQFVXTRS8597-54-85 21:13:00 Test Item Value Reference Range Interpretation Comments Globulin (test code = Globulin) 4.2 2.0-4.0 H [facility] CenterXfbmdowHMPFYMMFU4089-91-14 21:13:00 Test Item Value Reference Range Interpretation Comments A/G Ratio (test code = A/G Ratio) 1.1 0.7-1.6 N [facility] CenterBusgrxvGLQTZELCX5657-05-92 21:13:00 Test Item Value Reference Range Interpretation Comments B/C Ratio (test code = B/C Ratio) 30 6-25 H [facility] HospitalJbkkwjrFSUAVQRBLG1393-48-24 21:13:00 Test Item Value Reference Range Interpretation Comments RBC Morph (test code = Normal (08/19/2011 N RBC Morph) 15:13:00) [facility] HospitalIhfawloJHVMCVETOY1488-26-47 21:13:00 Test Item Value Reference Range Interpretation Comments Large Plt (test code = Slight *ABN*(08/19/2011 A Large Plt) 15:13:00) [facility] HospitalGgwbrsfXVVCMRZHRL7591-31-41 21:13:00 Test Item Value Reference Range Interpretation Comments Atypical Lymphs (test code = Atypical 0.0 N Lymphs) [facility] HospitalGuppierGTMZIOMCQS6396-94-15 21:13:00 Test Item Value Reference Range Interpretation Comments Bands (test code = 0.0 See_Comment N [Automat ed message] The Bands) system which ge nerated this result transmit rohit reference range : <=11.0. The reference r leo was not used to interpr et this result as reji l/abnormal. [facility] CenterJlefzcsZSUNMOEIR1345-91-25 21:10:00 Test Item Value Reference Range Interpretation Comments O2 Sat Roberth (test code = O2 Sat Roberth) 74.0 40.0-70.0 H [facility] CenterMuhbpwhCFIZQUGLZ8899-09-12 21:10:00 Test Item Value Reference Range Interpretation Comments Temp Roberth (test code = Temp Roberth) 37.0 [facility] CenterWarujlbKGMBSPJWN6365-44-64 21:10:00 Test Item Value Reference Range Interpretation Comments pO2 Roberth (test code = pO2 Roberth) 42 20-49 N [facility] CenterJzsdwcgGRNWRUGGV8312-12-48 21:10:00 Test Item Value Reference Range Interpretation Comments HCO3 Roberth (test code = HCO3 Roberth) 17.3 22.0-26.0 L [facility] CenterZbfzfdkRCIJSILVP4143-32-12 21:10:00 Test Item Value Reference Range Interpretation Comments pH Roberth (test code = pH Roberth) 7.34 7.28-7.42 N [facility] CenterNwfikowPIFKQLRWC6817-65-48 21:10:00 Test Item Value Reference Range Interpretation Comments pCO2 Roberth (test code = pCO2 Roberth) 32 38-52 L [facility] CenterWydvhwnBRMCYSPNF5651-50-01 21:10:00 Test Item Value Reference Range Interpretation Comments BE Roberth (test code = -7 See_Comment L [Automa rohit message] The BE Roberth) system which ge nerated this result transmit rohit reference range : <=2. The reference range was not used to interpr et this result as reji l/abnormal. [facility] CenterNyybwtlCPEHTMMWS1961-06-98 21:10:00 Test Item Value Reference Range Interpretation Comments O2 Sat Roberth (test code = O2 Sat Roberth) 74.0 40.0-70.0 H [facility] CenterAhhptfxKNVBSKELV6038-78-06 21:10:00 Test Item Value Reference Range Interpretation Comments Temp Roberth (test code = Temp Roberth) 37.0 [facility] CenterJtulrccEFPUQHWMF3052-46-97 21:10:00 Test Item Value Reference Range Interpretation Comments pO2 Roberth (test code = pO2 Roberht) 42 20-49 N [facility] CenterCffzipzGWBJQJBQL7753-45-79 21:10:00 Test Item Value Reference Range Interpretation Comments HCO3 Roberth (test code = HCO3 Roberth) 17.3 22.0-26.0 L [facility] CenterSrcmvqoWKOABERGU9583-84-83 21:10:00 Test Item Value Reference Range Interpretation Comments pH Roberth (test code = pH Roberth) 7.34 7.28-7.42 N [facility] CenterSceypevEGMZRPNNP9405-79-28 21:10:00 Test Item Value Reference Range Interpretation Comments pCO2 Roberth (test code = pCO2 Roberth) 32 38-52 L [facility] CenterBgylbqwUQHYRTIZQ8382-57-85 21:10:00 Test Item Value Reference Range Interpretation Comments BE Roberth (test code = -7 See_Comment L [Automa rohit message] The BE Roberth) system which ge nerated this result transmit rohit reference range : <=2. The reference range was not used to interpr et this result as reji l/abnormal. [facility] CenterNripqiqAMTGFKXXJ1251-49-64 21:10:00 Test Item Value Reference Range Interpretation Comments O2 Sat Roberth (test code = O2 Sat Roberth) 74.0 40.0-70.0 H [facility] CenterBisokalLVUDRUYQT1852-03-04 21:10:00 Test Item Value Reference Range Interpretation Comments Temp Roberth (test code = Temp Roberth) 37.0 [facility] CenterZhuhnxnJPCJIKNHK3276-21-59 21:10:00 Test Item Value Reference Range Interpretation Comments pO2 Roberth (test code = pO2 Roberth) 42 20-49 N [facility] CenterUwwixqmEXTWLFYAQ7531-74-69 21:10:00 Test Item Value Reference Range Interpretation Comments HCO3 Roberth (test code = HCO3 Roberth) 17.3 22.0-26.0 L [facility] CenterBgnqpikWDDUNQWYB9363-94-96 21:10:00 Test Item Value Reference Range Interpretation Comments pH Roberth (test code = pH Roberth) 7.34 7.28-7.42 N [facility] CenterFlwahacVPVNHBUCQ1636-36-59 21:10:00 Test Item Value Reference Range Interpretation Comments pCO2 Roberth (test code = pCO2 Roberth) 32 38-52 L [facility] CenterFyqgxbjANBJPMRTK0266-30-53 21:10:00 Test Item Value Reference Range Interpretation Comments BE Roberth (test code = -7 See_Comment L [Automa rohit message] The BE Roberth) system which ge nerated this result transmit rohit reference range : <=2. The reference range was not used to interpr et this result as reji l/abnormal. [facility] CenterAgxptnjYLLNANXOA2907-88-55 21:10:00 Test Item Value Reference Range Interpretation Comments O2 Sat Roberth (test code = O2 Sat Roberth) 74.0 40.0-70.0 H [facility] CenterRhtqsghFBZBGJAEZ0108-39-16 21:10:00 Test Item Value Reference Range Interpretation Comments Temp Roberth (test code = Temp Roberth) 37.0 [facility] CenterNrxulzoMNOVDYFHB1716-99-39 21:10:00 Test Item Value Reference Range Interpretation Comments pO2 Roberth (test code = pO2 Roberth) 42 20-49 N [facility] CenterVzqewdwGRIKUZVPG8141-26-60 21:10:00 Test Item Value Reference Range Interpretation Comments HCO3 Roberth (test code = HCO3 Roberth) 17.3 22.0-26.0 L [facility] CenterFwozdnuMRYDLOBIY7913-05-79 21:10:00 Test Item Value Reference Range Interpretation Comments pH Roberth (test code = pH Roberth) 7.34 7.28-7.42 N [facility] CenterMhjkrsjWNVJVNOMZ7379-42-01 21:10:00 Test Item Value Reference Range Interpretation Comments pCO2 Roberth (test code = pCO2 Roberth) 32 38-52 L [facility] CenterWfcacckTBJJFWKTH1254-78-17 21:10:00 Test Item Value Reference Range Interpretation Comments BE Roberth (test code = -7 See_Comment L [Automa rohit message] The BE Roberth) system which ge nerated this result transmit rohit reference range : <=2. The reference range was not used to interpr et this result as reji l/abnormal. [facility] CenterKwhzdtwTKGTWGVWH9332-67-08 21:10:00 Test Item Value Reference Range Interpretation Comments O2 Sat Roberth (test code = O2 Sat Roberth) 74.0 40.0-70.0 H [facility] CenterNgylihvDTCEXXYHG1194-19-33 21:10:00 Test Item Value Reference Range Interpretation Comments Temp Roberth (test code = Temp Roberth) 37.0 [facility] CenterJpffwcgPCJCBWNNS7784-21-22 21:10:00 Test Item Value Reference Range Interpretation Comments pO2 Roberth (test code = pO2 Roberth) 42 20-49 N [facility] CenterWzgmugqPNQFXQICI5487-58-66 21:10:00 Test Item Value Reference Range Interpretation Comments HCO3 Roberth (test code = HCO3 Roberth) 17.3 22.0-26.0 L [facility] CenterBdvrccgHSAYWJZPD3375-44-56 21:10:00 Test Item Value Reference Range Interpretation Comments pH Roberth (test code = pH Roberth) 7.34 7.28-7.42 N [facility] CenterZsxgearNEQDCGAPA7761-40-56 21:10:00 Test Item Value Reference Range Interpretation Comments pCO2 Roberth (test code = pCO2 Roberth) 32 38-52 L [facility] CenterNidwhnyVUUEFNHKA0612-56-33 21:10:00 Test Item Value Reference Range Interpretation Comments BE Roberth (test code = -7 See_Comment L [Automa rohit message] The BE Roberth) system which ge nerated this result transmit rohit reference range : <=2. The reference range was not used to interpr et this result as reji l/abnormal. [facility] CenterBypgahkHJELEMLZWR5885-58-80 20:34:00 Test Item Value Reference Range Interpretation Comments CDC-HIV 1/2 Ab (test Negative *NA*(08/19/2011 code = CDC-HIV 1/2 14:34:00) Ab) [facility]LhcgvbaQEIANYFQRP0802-08-11 20:34:00 Test Item Value Reference Range Interpretation Comments CDC-HIV 1/2 Ab (test Negative *NA*(08/19/2011 code = CDC-HIV 1/2 14:34:00) Ab) [facility] HospitalPzuejpyTOMFHSTTHV8969-80-63 20:34:00 Test Item Value Reference Range Interpretation Comments CDC-HIV 1/2 Ab (test Negative *NA*(08/19/2011 code = CDC-HIV 1/2 14:34:00) Ab) [facility] CenterBbcyihoNEVIEMIADL7999-09-91 20:34:00 Test Item Value Reference Range Interpretation Comments CDC-HIV 1/2 Ab (test Negative *NA*(08/19/2011 code = CDC-HIV 1/2 14:34:00) Ab) [facility] CenterTvlohtkDPNLAMYOGC9787-60-60 20:34:00 Test Item Value Reference Range Interpretation Comments CDC-HIV 1/2 Ab (test Negative *NA*(08/19/2011 code = CDC-HIV 1/2 14:34:00) Ab) [facility]
--- NOTE | 2023-04-05 17:13 | EDPHYS ---
Physician Documentation [facility] Name: Cathi Zaldivar Age: 42 yrs Sex: Female : 1980 Arrival Date: 04/05/2023 Time: 15:19 Bed 19 Private MD: ED Physician José Miguel Saleh HPI: 04/05 17:06 This 42 yrs old Female presents to ER via EMS with complaints of fall, leg kb pain. 17:06 The patient presents with pain. The complaints affect the left mcdermott. Context: The kb problem was sustained at home, the patient can fully bear weight, the patient is able to ambulate. Onset: The symptoms/episode began/occurred this morning. Modifying factors: The symptoms are alleviated by nothing. the symptoms are aggravated by movement, weight bearing. Associated signs and symptoms: The patient has no apparent associated signs or symptoms. Treatment prior to arrival includes: no previous treatment. Severity of symptoms: At their worst the symptoms were moderate, in the emergency department the symptoms are unchanged. The patient has not experienced similar symptoms in the past. The patient has not recently seen a physician. Pt reports she was walking out to her car to go to dialysis, slipped and fell onto left leg. c/o left leg pain. 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 N/A - Post-menopause, Not ap3 Historical: - Allergies: 15:27 ambien; ap3 15:27 Codeine; ap3 15:27 GABAPENTIN; ap3 15:27 GUAIFENESIN; ap3 15:27 Lisinopril; ap3 15:27 Morphine; ap3 15:27 Nitrofurantoin Macrocrystal; ap3 15:27 PENICILLINS; ap3 15:27 Prolixin; ap3 15:27 Seroquel; ap3 15:27 Tape; ap3 15:27 zolpidem tartrate; ap3 - PMHx: 15:27 Hypertension; Gastroparesis; ENCEPHALOPATHY; Dialysis; m-w-f; Diabetes - NIDDM; cyclic ap3 vomiting syndrome; chronic kidney disease; CHF; cardiac arrest; ibs; PERIPHERAL NEUROPATHY; liver failure; pseudo aneurysm R groin; Seizures; - PSHx: 15:27 2 heart stents; section; dialysis catheter R chest wall; eye removed; ap3 - Immunization history:: Client reports receiving the 2nd dose of the Covid vaccine. - Social history:: Smoking status: Patient reports the use of cigarette tobacco products, denies chronic smoking, but will smoke occasionally. ROS: 17:06 Constitutional: Negative for fever, chills, and weight loss, kb 17:06 MS/extremity: Positive for pain, of the left mcdermott, 17:06 Skin: Positive for abrasion(s), of the left knee, 17:06 All other systems are negative, Exam: 17:06 Constitutional: This is a well developed, well nourished patient who is awake, alert, kb and in no acute distress. Head/Face: Normocephalic, atraumatic. ENT: Moist Mucous membranes Cardiovascular: Regular rate Respiratory: Respirations even and unlabored. No increased work of breathing. Talking in full sentences Neuro: Awake and alert, GCS 15, oriented to person, place, time, and situation. Moves all extremities. Normal gait. 17:06 Musculoskeletal/extremity: Extremities: grossly normal except: noted in the left mcdermott: pain, ROM: intact in all extremities, Circulation is intact in all extremities. Sensation intact. 17:06 Skin: injury, abrasion(s), small abrasion noted, of the left knee, Vital Signs: 15:26 BP 208 / 82; Pulse 75; Resp 17; Temp 97.8; Pulse Ox 98% on R/A; Weight 79.38 kg; Pain ap3 9/10; 17:02 Pulse 91; Pulse Ox 96% on R/A; ap3 17:24 BP 187 / 87; Pulse 93; Pulse Ox 98% on R/A; ap3 15:26 Pain Scale: Adult ap3 MDM: 15:24 Patient medically screened. kb 17:11 Differential diagnosis: dislocation, closed fracture, contusion, strain, sprain, kb abrasion. Data reviewed: vital signs, nurses notes. Historians other than the Patient: EMS: [facility]. Counseling: I had a detailed discussion with the patient and/or guardian regarding the historical points, exam findings, and any diagnostic results supporting the discharge/admit diagnosis, radiology results, the need for outpatient follow up, a family practitioner, to return to the emergency department if symptoms worsen or persist or if there are any questions or concerns that arise at home. ED course: Pt is asymptomatic of BP, but hadn't taken her normal HTN medications. Pt given normal meds here. Pt sleeping when I went in to reevaluate pain. 04/05 15:25 Order name: Tib Fib Left XRAY; Complete Time: 16:26 kb Administered Medications: 15:45 Drug: Hydrocodone-Acetaminophen PO (7.5 mg-325 mg) 1 tabs PO once Route: PO; ap3 16:55 Follow up: Response: No adverse reaction ap3 16:56 Follow up: Response: Pain is decreased ap3 15:46 Drug: HydrALAZINE PO 50 mg PO once Route: PO; ap3 16:56 Follow up: Response: No adverse reaction ap3 15:46 Drug: cloNIDine PO 0.2 mg PO once Route: PO; ap3 16:56 Follow up: Response: No adverse reaction ap3 15:46 Drug: amLODIPine PO 5 mg PO once Route: PO; ap3 16:55 Follow up: Response: No adverse reaction ap3 Disposition: 17:33 I was immediately available on-site in the Emergency Department for consultation in the ms3 care of the patient. Disposition Summary: 04/05/23 17:12 Discharge Ordered Notes: Location: Home kb Condition: Stable kb Diagnosis - Fall on same level from slipping, tripping and stumbling without subsequent kb striking against object - Pain in left lower leg kb Followup: kb - With: Emergency Department - When: As needed - Reason: Worsening of condition Followup: kb - With: Private Physician - When: 2 - 3 days - Reason: Recheck today's complaints, Continuance of care, Re-evaluation by your physician Discharge Instructions: - Discharge Summary Sheet kb - Musculoskeletal Pain kb Forms: - Medication Reconciliation Form kb - Thank You Letter kb - Antibiotic Education kb - Prescription Opioid Use kb - Patient Portal Instructions kb - Leadership Thank You Letter kb Prescriptions: - orphenadrine citrate 100 mg Oral tablet, extended release - take 1 tablet ORAL route 2 times per day As needed; 10 tablet; Refills: 0, kb Product Selection Permitted Signatures: Dispatcher [employer] Milvia Ames FNP-C FNP-Ckb Prokisch, Amanda RN RN ap3 José Miguel Saleh DO DO ms3
--- NOTE | 2023-04-05 17:13 | ER ---
Nurse's Notes [facility] Name: Cathi Zaldivar Age: 42 yrs Sex: Female : 1980 Arrival Date: 04/05/2023 Time: 15:19 Bed 19 Private MD: Diagnosis: Fall on same level from slipping, tripping and stumbling without subsequent striking against object;Pain in left lower leg Presentation: 04/05 15:26 Chief complaint: Patient states: she fell on her way to dialysis onto her left knee. ap3 patient complains of pain 9/10 on the pain scale at this time. Coronavirus screen: At this time, the client does not indicate any symptoms associated with coronavirus-19. Ebola Screen: No symptoms or risks identified at this time. Initial Sepsis Screen: Does the patient meet any 2 criteria? No. Patient's initial sepsis screen is negative. Does the patient have a suspected source of infection? No. Patient's initial sepsis screen is negative. Risk Assessment: Do you want to hurt yourself or someone else? Patient reports no desire to harm self or others. Onset of symptoms was April 05, 2023. 15:26 Method Of Arrival: EMS: [facility] ap3 15:26 Acuity: JESSICA 3 ap3 Triage Assessment: 15:28 General: Appears in no apparent distress. Behavior is calm, cooperative, appropriate ap3 for age. Pain: Complains of pain in left knee Pain currently is 9 out of 10 on a pain scale. Pain began this morning. Neuro: Level of Consciousness is awake, alert, obeys commands, Oriented to person, place, time, situation. Cardiovascular: Patient's skin is warm and dry. Respiratory: Airway is patent Respiratory effort is even, unlabored, Respiratory pattern is regular, symmetrical. 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 N/A - Post-menopause, Not ap3 Historical: - Allergies: 15:27 ambien; ap3 15:27 Codeine; ap3 15:27 GABAPENTIN; ap3 15:27 GUAIFENESIN; ap3 15:27 Lisinopril; ap3 15:27 Morphine; ap3 15:27 Nitrofurantoin Macrocrystal; ap3 15:27 PENICILLINS; ap3 15:27 Prolixin; ap3 15:27 Seroquel; ap3 15:27 Tape; ap3 15:27 zolpidem tartrate; ap3 - PMHx: 15:27 Hypertension; Gastroparesis; ENCEPHALOPATHY; Dialysis; m-w-f; Diabetes - NIDDM; cyclic ap3 vomiting syndrome; chronic kidney disease; CHF; cardiac arrest; ibs; PERIPHERAL NEUROPATHY; liver failure; pseudo aneurysm R groin; Seizures; - PSHx: 15:27 2 heart stents; section; dialysis catheter R chest wall; eye removed; ap3 - Immunization history:: Client reports receiving the 2nd dose of the Covid vaccine. - Social history:: Smoking status: Patient reports the use of cigarette tobacco products, denies chronic smoking, but will smoke occasionally. Screenin:29 [facility] ED Fall Risk Assessment (Adult) History of falling in the last 3 months, ap3 including since admission Yes- fall prone (multiple falls) (3 pts) Confusion or Disorientation No (0 pts) Intoxicated or Sedated No (0 pts) Impaired Gait No (0 pts) Mobility Assist Device Used No (0 pt). Abuse screen: Denies threats or abuse. Nutritional screening: No deficits noted. Tuberculosis screening: No symptoms or risk factors identified. Vital Signs: 15:26 BP 208 / 82; Pulse 75; Resp 17; Temp 97.8; Pulse Ox 98% on R/A; Weight 79.38 kg; Pain ap3 9/10; 17:02 Pulse 91; Pulse Ox 96% on R/A; ap3 17:24 BP 187 / 87; Pulse 93; Pulse Ox 98% on R/A; ap3 15:26 Pain Scale: Adult ap3 ED Course: 15:24 Patient arrived in ED. kb 15:24 Milvia Sanders FNP-C is PHCP. kb 15:24 José Miguel Saleh DO is Attending Physician. kb 15:25 Radha Florez, TABATHA is Primary Nurse. ap3 15:27 Triage completed. ap3 15:29 Arm band placed on right wrist. ap3 15:29 Patient has correct armband on for positive identification. Bed in low position. Call ap3 light in reach. Side rails up X2. Pulse ox on. NIBP on. 16:09 Tib Fib Left XRAY In Process Unspecified. EDMS 17:23 Provided Education on: discharge instructions. ap3 17:23 No provider procedures requiring assistance completed. Patient did not have IV access ap3 during this emergency room visit. Administered Medications: 15:45 Drug: Hydrocodone-Acetaminophen PO (7.5 mg-325 mg) 1 tabs PO once Route: PO; ap3 16:55 Follow up: Response: No adverse reaction ap3 16:56 Follow up: Response: Pain is decreased ap3 15:46 Drug: HydrALAZINE PO 50 mg PO once Route: PO; ap3 16:56 Follow up: Response: No adverse reaction ap3 15:46 Drug: cloNIDine PO 0.2 mg PO once Route: PO; ap3 16:56 Follow up: Response: No adverse reaction ap3 15:46 Drug: amLODIPine PO 5 mg PO once Route: PO; ap3 16:55 Follow up: Response: No adverse reaction ap3 Medication: 17:24 VIS not applicable for this client. ap3 Outcome: 17:12 Discharge ordered by MD. alcantara 17:23 Discharged to home ambulatory, ap3 17:23 Condition: good 17:23 Discharge instructions given to patient, Instructed on discharge instructions, follow up and referral plans. medication usage, Demonstrated understanding of instructions, follow-up care, medications, Prescriptions given X 1, 17:41 Patient left the ED. ap3 Signatures: Dispatcher [employer] Milvia Ames, SUKHWINDER JARRETT-Radha Celis, RN RN ap3
[2023-04-05 18:37] VITALS: TEMP 97.8
[2023-04-05 18:39] VITALS: BP 187/87; O2SAT 98
== END 2023-04-05 17:41 | disposition home or self-care (01) ==
LOC: ER 15:19
DX: M79.662 Pain in left lower leg (principal); W01.0XXA Fall on same level from slipping, tripping and stumbling without subsequent striking against object, initial encounter; E11.22 Type 2 diabetes mellitus with diabetic chronic kidney disease; I13.2 Hypertensive heart and chronic kidney disease with heart failure and with stage 5 chronic kidney disease, or end stage renal disease; N18.6 End stage renal disease; I50.9 Heart failure, unspecified; Z99.2 Dependence on renal dialysis; Z95.818 Presence of other cardiac implants and grafts; F17.210 Nicotine dependence, cigarettes, uncomplicated; Z88.0 Allergy status to penicillin; Z88.5 Allergy status to narcotic agent; Z88.8 Allergy status to other drugs, medicaments and biological substances; Z91.048 Other nonmedicinal substance allergy status
CPT/HCPCS: 99284

== ENCOUNTER 2023-04-11 22:11 | Inpatient (IN) | payer MEDICARE, OTHER ==
[2023-04-11] MEDS ORDERED: HYDRALAZINE HCL 20 MG/ML VIAL ONE (22:55)
[2023-04-12] MEDS ORDERED: cloNIDine HCL 0.1 MG TAB ONE (00:04)
[2023-04-12 00:50] LABS: Absolute Lymphocytes (CBC) 1.2 K/uL (0.7-4.9); Hematocrit 28.4 % (36.0-45.0); Lymphocytes % 31.8 % (15.3-44.8); MCV 93.3 fL (80-100); MPV 9.3 fL (7.6-11.3); Platelets 101 thou/uL (152-406); RBC Red Blood Cell Count 3.05 M/uL (3.86-4.86)
[2023-04-12 01:14] LABS: Albumin 3.2 g/dL (3.4-5.0); Bilirubin Total 0.6 mg/dL (0.2-1.0); Protein, Total 6.9 g/dL (6.4-8.2)
[2023-04-12 01:16] LABS: Potassium 6.2 mEq/L (3.5-5.1)
--- NOTE | 2023-04-12 01:25 | ER ---
Nurse's Notes [facility] Name: Cathi Zaldivar Age: 42 yrs Sex: Female : 1980 Arrival Date: 04/11/2023 Time: 22:11 Bed IW1 Private MD: Diagnosis: Cellulitis of left lower limb;Hyperkalemia;Essential (primary) hypertension;Anemia, unspecified Presentation: 04/11 22:21 Chief complaint: Patient states: she fell Wednesday04/05/2023 and is having continued ap3 left leg swelling from the fall. patient is a dialysis patient on MWF, and missed dialysis Wednesday. Patient states that her right leg is usually the leg that is swollen but not the left leg. Patient presents to the ED with a wound the left lower extremity. Coronavirus screen: At this time, the client does not indicate any symptoms associated with coronavirus-19. Ebola Screen: No symptoms or risks identified at this time. Initial Sepsis Screen: Does the patient meet any 2 criteria? No. Patient's initial sepsis screen is negative. Does the patient have a suspected source of infection? Yes: Skin breakdown/wound. Risk Assessment: Do you want to hurt yourself or someone else? Patient reports no desire to harm self or others. Onset of symptoms was April 05, 2023. 22:21 Method Of Arrival: Wheelchair ap3 22:23 Acuity: JESSICA 3 ap3 Triage Assessment: 22:24 General: Appears uncomfortable, Behavior is cooperative, appropriate for age. Pain: ap3 Complains of pain in left leg. Neuro: Level of Consciousness is awake, alert, obeys commands, Oriented to person, place, time, situation. Cardiovascular: Patient's skin is warm and dry. Respiratory: Airway is patent Respiratory effort is even, unlabored, Respiratory pattern is regular, symmetrical. Derm: Wound noted left mcdermott. 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 cp4 Historical: - Allergies: 22:23 ambien; ap3 22:23 Codeine; ap3 22:23 GABAPENTIN; ap3 22:23 GUAIFENESIN; ap3 22:23 Lisinopril; ap3 22:23 Morphine; ap3 22:23 Nitrofurantoin Macrocrystal; ap3 22:23 PENICILLINS; ap3 22:23 Prolixin; ap3 22:23 Seroquel; ap3 22:23 Tape; ap3 22:23 zolpidem tartrate; ap3 - PMHx: 22:23 ENCEPHALOPATHY; Gastroparesis; Hypertension; ibs; liver failure; PERIPHERAL NEUROPATHY; ap3 pseudo aneurysm R groin; Seizures; CHF; chronic kidney disease; cyclic vomiting syndrome; Diabetes - NIDDM; Dialysis; m-w-f; cardiac arrest; - PSHx: 22:23 2 heart stents; section; dialysis catheter R chest wall; eye removed; ap3 - Immunization history:: Client reports having NOT received the Covid vaccine. - Social history:: Smoking status: Patient reports the use of cigarette tobacco products, denies chronic smoking, but will smoke occasionally. Screenin:25 Abuse screen: Denies threats or abuse. Nutritional screening: No deficits noted. ap3 Tuberculosis screening: No symptoms or risk factors identified. 22:55 [facility] ED Fall Risk Assessment (Adult) History of falling in the last 3 months, cp4 including since admission Yes- fall prone (multiple falls) (3 pts) Confusion or Disorientation No (0 pts) Intoxicated or Sedated No (0 pts) Impaired Gait Yes (1 pt) Mobility Assist Device Used No (0 pt) Altered Elimination No (0 pt) Score/Fall Risk Level 3 or more points = High Risk Oriented to surroundings, Maintained a safe environment, Educated pt \T\ family on fall prevention, incl call for assistance when getting out of bed, Hourly rounding (assess needs \T\ fall precautionary measures) done. Assessment: 22:55 General: Appears in no apparent distress. Behavior is calm, cooperative, appropriate cp4 for age. Pain: Complains of pain in left leg Pain currently is 9 out of 10 on a pain scale. 04/12 01:30 Reassessment: Patient appears in no apparent distress at this time. Patient and/or jb4 family updated on plan of care and expected duration. Pain level reassessed. Patient is alert, oriented x 3, equal unlabored respirations, skin warm/dry/pink. 02:30 Reassessment: Patient appears in no apparent distress at this time. Patient and/or jb4 family updated on plan of care and expected duration. Pain level reassessed. Patient is alert, oriented x 3, equal unlabored respirations, skin warm/dry/pink. 03:56 Reassessment: Patient appears in no apparent distress at this time. Patient and/or jb4 family updated on plan of care and expected duration. Pain level reassessed. Patient is alert, oriented x 3, equal unlabored respirations, skin warm/dry/pink. Pt stuck multiple times. Attempted to page inside lab for assitance with blood cultures \T\[id number] and tried to call inside lab at 0220. inside lab unable to assist at this time. Able to collect 1 pedi blood culture. Unable to obtain a second. ER physician gave verbal order to cancel second set and start IV antibiotics. 14:01 Reassessment: attempted to call report to 2nd floor. nurse unavailable. kc6 14:10 Reassessment: attempted to call report to 2nd floor. nurse cyndee is at lunch and will kc6 call me back. 14:49 Reassessment: report given to TABATHA Steel. ap3 Vital Signs: 04/11 22:23 BP 215 / 95; Pulse 69; Resp 17; Temp 98.4; Pulse Ox 98% ; Weight 74.84 kg; ap3 23:53 BP 216 / 95; Pulse 69; Resp 18; Pulse Ox 98% ; cp4 04/12 02:00 BP 201 / 112; Pulse 68; Resp 14; Pulse Ox 97% on R/A; jb4 03:00 BP 173 / 66; Pulse 77; Resp 15; Pulse Ox 96% on R/A; jb4 ED Course: 04/11 22:15 Patient arrived in ED. jj6 22:24 Triage completed. ap3 22:25 Arm band placed on right wrist. ap3 22:25 Patient has correct armband on for positive identification. ap3 22:30 Anila Camacho is Primary Nurse. cp4 22:31 José Miguel Saleh DO is Attending Physician. ms3 22:55 No provider procedures requiring assistance completed. cp4 04/12 00:11 Missed attempt(s): 24 gauge Bleeding controlled, band aid applied, catheter tip intact. oe 00:36 Inserted saline lock: 24 gauge in left upper arm, using aseptic technique. Blood bp collected. 01:24 Regis Storm MD is Hospitalizing Provider. ms3 01:28 Chandler Bautista is Hospitalizing Provider. ms3 07:00 Report received from TABATHA Pruitt. kc6 07:00 Patient admitted, IV remains in place. kc6 14:49 Provided Education on: need for admission. ap3 Administered Medications: 04/11 23:47 CANCELLED (Physician Discretion): [id number] mg IVP once ms3 23:53 Drug: cloNIDine PO 0.1 mg PO once Route: PO; cp4 04/12 00:02 Follow up: Response: No adverse reaction bp 02:01 Not Given (Other Intervention Used): d50w50 ml IVP once; (1 amp) jb4 02:01 Drug: D10 in Water IVP 250 ml IVP bolus Route: IVP; Site: left upper arm; jb4 02:38 Drug: Calcium Gluconate IVPB 1 grams IVPB once over 60 mins; (mix in NS 100 mL) Route: jb4 IVPB; Infused Over: 60 mins; Site: left upper arm; 02:38 Drug: Insulin Regular Human IVP 10 units IVP once {Co-Signature: ha1 (Yuliana Whaley4 RN).} Route: IVP; Site: left upper arm; 02:38 Drug: hydrALAZINE IVP 10 mg IVP once Route: IVP; Site: left upper arm; jb4 02:38 Drug: HYDROmorphone IVP 1 mg IVP once Route: IVP; Site: left upper arm; jb4 02:38 Drug: diphenhydrAMINE IVP 25 mg IVP once Route: IVP; Site: left upper arm; jb4 03:59 Drug: vancoMYCIN IVPB 1 grams IVPB once over 2 hrs Route: IVPB; Infused Over: 2 hrs; jb4 Site: left upper arm; Medication: 04/11 22:55 VIS not applicable for this client. cp4 Outcome: 04/12 01:24 Decision to Hospitalize by Provider. ms3 07:00 Admitted to ER Hold. Please see [facility] for further documentation. kc6 07:00 Condition: stable 07:00 Instructed on the need for admit, 14:51 Patient left the ED. ap3 Signatures: Silverio Macias, RN RN jb4 Rick Pyle Brian, RN RN bp Radha Florez RN RN ap3 José Miguel Saleh DO DO ms3 Lima Raoj6 Lucero Jones RN RN kc6 Anila Camacho cp4 Yuliana Whaley RN ha1 Corrections: (The following items were deleted from the chart) 03:58 03:56 Reassessment: Patient appears in no apparent distress at this time. Patient jb4 and/or family updated on plan of care and expected duration. Pain level reassessed. Patient is alert, oriented x 3, equal unlabored respirations, skin warm/dry/pink. jb4
--- NOTE | 2023-04-12 01:25 | EDPHYS ---
Physician Documentation [facility] Name: Cathi Zaldivar Age: 42 yrs Sex: Female : 1980 Arrival Date: 04/11/2023 Time: 22:11 Bed IW1 Private MD: ED Physician José Miguel Saleh HPI: 04/11 22:46 This 42 yrs old Female presents to ER via Wheelchair with complaints of Leg ms3 Swelling, Leg Pain. 22:46 42-year-old female with past medical history of encephalopathy, gastroparesis, ms3 hypertension, IBS, liver failure, peripheral neuropathy presents to the emergency department for left leg swelling after falling on Wednesday. Patient states she has applied Neosporin to the abrasion on her left knee and the erythema is getting worse. Patient states her discomfort is a 9/10. Patient denies any alleviating or inciting factors. 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 cp4 Historical: - Allergies: 22:23 ambien; ap3 22:23 Codeine; ap3 22:23 GABAPENTIN; ap3 22:23 GUAIFENESIN; ap3 22:23 Lisinopril; ap3 22:23 Morphine; ap3 22:23 Nitrofurantoin Macrocrystal; ap3 22:23 PENICILLINS; ap3 22:23 Prolixin; ap3 22:23 Seroquel; ap3 22:23 Tape; ap3 22:23 zolpidem tartrate; ap3 - PMHx: 22:23 ENCEPHALOPATHY; Gastroparesis; Hypertension; ibs; liver failure; PERIPHERAL NEUROPATHY; ap3 pseudo aneurysm R groin; Seizures; CHF; chronic kidney disease; cyclic vomiting syndrome; Diabetes - NIDDM; Dialysis; m-w-f; cardiac arrest; - PSHx: 22:23 2 heart stents; section; dialysis catheter R chest wall; eye removed; ap3 - Immunization history:: Client reports having NOT received the Covid vaccine. - Social history:: Smoking status: Patient reports the use of cigarette tobacco products, denies chronic smoking, but will smoke occasionally. ROS: 22:46 Constitutional: Negative for fever, and chills. Cardiovascular: Negative for chest ms3 pain, and palpitations. Respiratory: Negative for shortness of breath, cough, wheezing, and pleuritic chest pain, Abdomen/GI: Negative for abdominal pain, nausea, vomiting, diarrhea, and constipation, MS/Extremity: Negative for injury and deformity, 22:46 Skin: Positive for cellulitis, 22:46 All other systems are negative, Exam: 22:46 Constitutional: This is a well developed, well nourished patient who is awake, alert, ms3 and in no acute distress. Head/Face: Normocephalic, atraumatic. Chest/axilla: Normal chest wall appearance and motion. Nontender with no deformity. Cardiovascular: Regular rate and rhythm with a normal S1 and S2. No gallops, murmurs, or rubs. Normal PMI, no JVD. No pulse deficits. Respiratory: Lungs have equal breath sounds bilaterally, clear to auscultation and percussion. No rales, rhonchi or wheezes noted. No increased work of breathing, no retractions or nasal flaring. Abdomen/GI: Soft, non-tender, with normal bowel sounds. No distension or tympany. No guarding or rebound. No evidence of tenderness throughout. 22:46 Skin: cellulitis, that is moderate, on the left mcdermott, 04/12 01:46 ECG was reviewed by the Attending Physician. ms3 Vital Signs: 04/11 22:23 BP 215 / 95; Pulse 69; Resp 17; Temp 98.4; Pulse Ox 98% ; Weight 74.84 kg; ap3 23:53 BP 216 / 95; Pulse 69; Resp 18; Pulse Ox 98% ; cp4 04/12 02:00 BP 201 / 112; Pulse 68; Resp 14; Pulse Ox 97% on R/A; jb4 03:00 BP 173 / 66; Pulse 77; Resp 15; Pulse Ox 96% on R/A; jb4 MDM: 04/11 22:35 Patient medically screened. ms3 22:47 Differential diagnosis: Cellulitis versus hyperkalemia versus hypertension. ms3 04/12 01:24 Data reviewed: vital signs, nurses notes, lab test result(s), and as a result, I will ms3 admit patient. Consideration of Admission/Observation Patient was admitted/placed on observation. Management of patient was discussed with the following: Hospitalist: Isabelle Reis on behalf of hospitalist. I considered the following discharge prescriptions or medication management in the emergency department Medications were administered in the Emergency Department. See MAR. Care significantly affected by the following Social Determinants of Health: Poor access to healthcare and/or lack of insurance. Counseling: I had a detailed discussion with the patient and/or guardian regarding the historical points, exam findings, and any diagnostic results supporting the discharge/admit diagnosis, lab results, the need for further work-up and treatment in the hospital. ED course: Discussed necessity for admission with patient. Patient understands agrees with plan. All questions were answered. Will give Lokelma, glucose, insulin, calcium gluconate for hyperkalemia. Will obtain blood cultures and give vancomycin.. 04/11 22:35 Order name: CBC with Diff ms3 04/11 22:35 Order name: CMP ms3 04/11 23:44 Order name: Comprehensive Metabolic Panel; Complete Time: 01:16 EDMS 04/11 23:44 Order name: CBC with Automated Diff; Complete Time: 01:02 EDMS 04/12 01:27 Order name: Blood Culture Adult (2) ms3 04/12 02:48 Order name: Glucose, Ancillary Testing; Complete Time: 05:22 EDMS 04/12 04:00 Order name: Blood Culture EDMS 04/12 04:30 Order name: Glucose, Ancillary Testing; Complete Time: 05:22 EDMS 04/12 04:58 Order name: Glucose, Ancillary Testing; Complete Time: 05:22 EDMS 04/12 04:58 Order name: Glucose, Ancillary Testing; Complete Time: 05:22 EDMS 04/12 05:45 Order name: Glucose, Ancillary Testing; Complete Time: 06:56 EDMS 04/12 06:22 Order name: Blood Culture EDMS 04/12 06:24 Order name: Blood Culture EDMS 04/12 06:33 Order name: Glucose, Ancillary Testing; Complete Time: 06:56 EDMS 04/12 07:28 Order name: Glucose, Ancillary Testing EDMS 04/12 09:01 Order name: Glucose, Ancillary Testing EDMS 04/12 09:59 Order name: Basic Metabolic Panel EDMS 04/12 10:08 Order name: Lactate w/ 2H reflex if indic. EDMS 04/12 10:39 Order name: Phosphorus EDMS 04/12 10:39 Order name: Magnesium EDMS 04/12 11:26 Order name: Glucose, Ancillary Testing EDMS 04/12 14:17 Order name: Hep B surface AG w/Reflex EDMS 04/12 14:17 Order name: Hepatitis B Surface Ab, QL/QN EDMS 04/12 08:59 Order name: US EDMS 04/12 01:17 Order name: EKG; Complete Time: 06:05 ms3 04/12 01:17 Order name: EKG - Nurse/Tech; Complete Time: 01:47 ms3 EC:46 Rate is 69 beats/min. Rhythm is regular. Right axis deviation noted. MT interval is ms3 normal. QRS interval is normal. Clinical impression: NSR w/ Non-specific ST/T Changes. Interpreted by me. Reviewed by me. Administered Medications: 04/11 23:47 CANCELLED (Physician Discretion): [id number] mg IVP once ms3 23:53 Drug: cloNIDine PO 0.1 mg PO once Route: PO; cp4 04/12 00:02 Follow up: Response: No adverse reaction bp 02:01 Not Given (Other Intervention Used): d50w50 ml IVP once; (1 amp) jb4 02:01 Drug: D10 in Water IVP 250 ml IVP bolus Route: IVP; Site: left upper arm; jb4 02:38 Drug: Calcium Gluconate IVPB 1 grams IVPB once over 60 mins; (mix in NS 100 mL) Route: jb4 IVPB; Infused Over: 60 mins; Site: left upper arm; 02:38 Drug: Insulin Regular Human IVP 10 units IVP once {Co-Signature: [email or web address] (Yuliana Whaley4 RN).} Route: IVP; Site: left upper arm; 02:38 Drug: hydrALAZINE IVP 10 mg IVP once Route: IVP; Site: left upper arm; jb4 02:38 Drug: HYDROmorphone IVP 1 mg IVP once Route: IVP; Site: left upper arm; jb4 02:38 Drug: diphenhydrAMINE IVP 25 mg IVP once Route: IVP; Site: left upper arm; jb4 03:59 Drug: vancoMYCIN IVPB 1 grams IVPB once over 2 hrs Route: IVPB; Infused Over: 2 hrs; jb4 Site: left upper arm; Disposition Summary: 04/12/23 01:24 Hospitalization Ordered Notes: Hospitalization Status: Inpatient Admission ms3 Condition: Stable ms3 Problem: new ms3 Symptoms: are unchanged ms3 Bed/Room Type: Standard ms3 Provider: Chandler Bautista(04/12/23 01:28) ms3 Location: Telemetry/MedSurg (Inpatient)(04/12/23 13:38) bd Room Assignment: 208(04/12/23 13:38) bd Diagnosis - Cellulitis of left lower limb ms3 - Hyperkalemia ms3 - Essential (primary) hypertension ms3 - Anemia, unspecified ms3 Forms: - Medication Reconciliation Form ms3 - SBAR form ms3 - Leadership Thank You Letter ms3 Critical care time excluding procedures: 01:27 Critical care time: Bedside Care: 30 minutes, Consultation: 10 minutes. Total time: 40 ms3 minutes Signatures: Dispatcher [employer] EDMS Shruthi Stiles Martha RN RN Silevrio Macias, RN RN jb4 Radha Florez RN RN ap3 José Miguel Saleh, DO ms3 Yuliana Whaley, RN RN ha1 Nelsy Reis FNP TAILERCPA 12 Anila Camacho 4 Latrell Fischer RN Yuliana Whaley RN ha1 Corrections: (The following items were deleted from the chart) 04/11 23:47 22:35 hydrALAZINE IVP 10 mg IVP once ordered. ms3 ms3 04/12 01:28 01:24 Regis Storm ms3 ms3 01:35 01:24 Telemetry/MedSurg (Inpatient) ms3 mw 01:35 01:24 ms3 mw 13:38 01:35 BR ER HOLD mw bd 13:38 01:35 ERHOLD- mw bd
--- NOTE | 2023-04-12 01:42 | P.HP ---
Certification for Inpatient Patient admitted to: Inpatient With expected LOS: <2 Midnights Patient will require the following post-hospital care: None Practitioner: I am a practitioner with admitting privileges, knowledge of patient current condition, hospital course, and medical plan of care. Services: Services provided to patient in accordance with Admission requirements found in Title 42 Section 412.3 of the Code of Federal Regulations Patient History Date of Service: 04/12/23 Reason for admission: Left knee cellulitis History of Present Illness: 50-year-old female with a past medical history of metabolic encephalopathy, insomnia, gastroparesis, hypertension, pseudoaneurysm, peripheral neuropathy, liver failure, cyclic vomiting syndrome, diabetes, seizures, CAD with 2 cardiac stents, history of cardiac arrest, ESRD on dialysis liver disease presents to the emergency room for fall with abrasion on the left knee. Left knee pain and swelling is progressively getting worse. Reports pain to the left lower extremity 9 out of 10. No reported fever, chills. She reports Dialysis MWF, resports missing dialysis on Wednesday. No reported shortness of breath, chest pain, abdominal pain. Plan to admit for left lower extremity cellulitis hyperkalemia, chronic kidney disease. Treated with calcium gluconate, insulin with D50 5W to lower potassium. Clonidine for hypertension, vancomycin for cellulitis. Laboratory evaluation BUN 82 creatinine 11.90, GFR 4, WBCs within normal limits hemoglobin 9.[address] atelets 101 blood cultures ordered vital signs hypertensive on arrival 216/95, afebrile 98.4, pulse 69 respiration 18 Allergies zolpidem tartrate [From Ambien] Allergy (Intermediate, Verified 10/17/16 23:08) Itching/Hives/Rash codeine [Codeine] Allergy (Verified 10/17/16 23:08) Hives fluphenazine enanthate [From Prolixin] Allergy (Verified 10/17/16 23:08) ARM NUMBNESS fluphenazine HCl [From Prolixin] Allergy (Verified 10/17/16 23:08) ARM NUMBNESS guaifenesin [From Prolex D] Allergy (Verified 10/17/16 23:08) Hives lisinopril Allergy (Verified 04/21/17 10:26) Anaphylaxis morphine Allergy (Verified 10/01/20 10:03) Itching Penicillins Allergy (Verified 10/17/16 23:08) Hives phenylephrine HCl [From Prolex D] Allergy (Verified 10/17/16 23:08) Hives quetiapine [From Seroquel] Allergy (Verified 12/31/22 03:18) Anaphylaxis cefepime Adverse Reaction (Severe, Verified 12/31/22 03:18) Anaphylaxis nitrofurantoin Adverse Reaction (Verified 08/07/17 23:41) liver failure Home Medications: Furosemide [Lasix*] 80 mg PO BID 09/30/20 Buspirone HCl [Buspar] 1 tab PO BID 08/22/21 Diphenhydramine [Benadryl*] 25 mg PO Q6HP PRN #30 tab 09/10/21 Quetiapine Fumarate [Seroquel] 100 mg PO BEDTIME 10/09/21 Pantoprazole [Protonix Tab*] 40 mg PO DAILY #30 tab 03/25/22 Amlodipine [Norvasc*] 5 mg PO BID #60 tab 09/10/22 Ascorbate Calcium [Vitamin C] 500 mg PO BID #60 tab 09/10/22 Aspirin Chewable [Aspirin Chewable*] 81 mg PO DAILY #30 tab.chew 09/10/22 Calcitrol [Rocaltrol*] 0.5 mcg PO DAILY #60 cap 09/10/22 Clopidogrel Bisulfate [Plavix*] 75 mg PO DAILY #30 tab 09/10/22 Divalproex Sodium [Depakote] 1 tab PO BID #60 tab 09/10/22 Doxazosin [Cardura*] 2 mg PO BID #60 tab 09/10/22 Folic Acid/Vit B Complex and C [Dialyvite 800 Chewable Wafer] 800 mcg PO DAILY #30 tab.chew 09/10/22 Hydralazine HCl 50 mg PO TID #90 tab 09/10/22 Losartan Potassium [Cozaar*] 50 mg PO BID #60 tablet 09/10/22 Metoprolol Succinate [Toprol Xl*] 25 mg PO BID #60 tab 09/10/22 Pregabalin 25 mg PO DAILY #30 tab 09/10/22 Vitamin D [Drisdol*] 50,000 unit PO Q7D #4 cap 09/10/22 Cefdinir [Cefdinir*] 300 mg PO BID #10 cap 01/01/23 Docusate [Colace Cap*] 100 mg PO BID #60 cap 01/01/23 Metoclopramide [Reglan*] 5 ml PO TID PRN #500 ml 01/01/23 Nepro Shake [Nepro*] 237 ml PO TID #90 can 01/01/23 Promethazine Tab [Phenergan*] 25 mg PO Q6HP PRN #30 tab 01/01/23 metroNIDAZOLE [Flagyl] 500 mg PO Q12H #10 tab 01/01/23 - Past Medical/Surgical History Diabetic: Yes -: Chronic Diastolic CHF -: ESRD on HD (Dr. Morin) -: Gastroporesis -: DM II with CKD, Polyneuropathy, Gastroparesis -: Obesity -: Schizoaffective Disorder -: HTN -: Post Traumatic Stress Disorder -: Hypertension -: Post traumatic stress disorder -: Schizoaffective disorder -: CHF, diastolic -: x 2 -: Tubal ligation -: Stents RUE, RLE & subclavian -: Right groin "aneurysm" -: RUE fistula for dialysis -: RUE fistula for dialysis Psychosocial/ Personal History: She is , she has 2 children, she does not work. She lives with her boyfriend and daughter. - Family History Mother -: Hypertension, Diabetes, Cancer, Other (see notes) Notes: hypothyroid, asthma, breast cancer Father -: Diabetes, Cancer Notes: - stomach/ lung/ prostate cancer, diabetes - Social History Alcohol use: No CD- Drugs: No Caffeine use: Yes Review of Systems 10-point ROS is otherwise unremarkable Physical Examination - Physical Exam General: Alert, In no apparent distress, Oriented x3 HEENT: Atraumatic, Normocephalic, PERRLA Neck: Supple, 2+ carotid pulse no bruit, JVD not distended Respiratory: Clear to auscultation bilaterally, Normal air movement Cardiovascular: Normal pulses, Regular rate/rhythm, Other (LLE edema +2) Capillary refill: <2 Seconds Gastrointestinal: Normal bowel sounds, Soft and benign Musculoskeletal: No clubbing, Other (LLE edema +2) Integumentary: Other (Left knee abrasion JOSEY no drainage) Urinary: Dialysis catheter - Studies Laboratory Data (last 24 hrs) 04/12/23 04/12/23 00:35 00:35 WBC 3.80 L Hgb 9.6 L Hct 28.4 L Plt Count 101 L Sodium 135 L Potassium 6.2 H* BUN 82 H Creatinine 11.90 H Glucose 133 H Total Bilirubin 0.6 AST 20 ALT 14 Alkaline Phosphatase 125 H Assessment and Plan - Plan Assessment plan cellulitis left extremity acute Blood cultures, IV antibiotics, as needed analgesics WBCs within normal limits blood cultures ordered Wound care consult Doppler LLE rule out DVT Hypertensive urgency acute Telemetry, as needed antihypertensives resume home medications Hyperkalemia acute Trend electrolytes Treated with calcium gluconate, insulin with D50 5W to lower potassium anemia of chronic disease chronic Thrombocytopenia Trend H&H, trend platelets thrombocytopenia platelets 101 hemoglobin 9.6 hematocrit 28.4 End-stage renal disease on hemodialysis Wednesday chronic Nephrology consult for dialysis Avoid nephrotoxic medications BUN 82 creatinine 11.90, GFR 4, Diabetes type 2 Accu-Cheks, sliding scale insulin CAD with stents Liver disease Peripheral neuropathy Gastroparesis Seizures Cyclic vomiting syndrome Schizoaffective disorder Resume appropriate home medications Full code Diet renal DVT prophylaxis heparin Discharge Plan: Home Plan to discharge in: 48 Hours - Advance Directives Does patient have a Living Will: No Does patient have a Durable POA for Healthcare: No - Code Status/Comfort Care Code Status: Full Code Physician Review: Patient Assessed, Agree with Above Assessment and Plan Critical Care: No Time Spent Managing Pts Care (In Minutes): 50
[2023-04-12] MEDS ORDERED: INSULIN REGULAR (HUMAN) 100 UNIT/ML ONE (02:06)
[2023-04-12] MEDS ORDERED: D10W 250 ML IV ONE ×3 (02:07→06:44)
[2023-04-12] MEDS ORDERED: CALCIUM GLUCONATE 1 GM IVPB 1 GM/50 ML BAG IV ONE (02:07)
[2023-04-12] MEDS ORDERED: DIPHENHYDRAMINE 50 MG/ML VIAL ONE (02:39)
[2023-04-12] MEDS ORDERED: HYDROMORPHONE HCL 1 MG/ML INJ ONE (02:39)
[2023-04-12] MEDS ORDERED: HYDRALAZINE HCL 20 MG/ML VIAL ONE (02:40)
[2023-04-12] MEDS ORDERED: D50W 25 GM/50 ML SYRINGE IV PRN ×2 (02:48→19:30)
[2023-04-12] MEDS ORDERED: GLUCAGON 1 MG/VIAL IM PRN ×2 (02:48→19:30)
[2023-04-12] MEDS ORDERED: NA CHLORIDE 0.9% 250 ML ONE ×2 (03:09→22:06)
[2023-04-12] MEDS ORDERED: VANCOMYCIN 1 GM/VIAL ONE ×2 (03:09→22:05)
[2023-04-12] MEDS: D10W 125 ML IV PRN ×3 (04:24→06:34)
[2023-04-12] MEDS: DIPHENHYDRAMINE 25 MG TAB/CAP PO PRN ×2 (04:56→17:35)
[2023-04-12] MEDS ORDERED: DIPHENHYDRAMINE 25 MG TAB/CAP ONE (05:08)
[2023-04-12] MEDS: ONDANSETRON 4 MG/2 ML VIAL IV PRN ×2 (07:07→17:32)
[2023-04-12] MEDS: INSULIN REGULAR (HUMAN) 100 UNIT/ML SQ SCH ×4 (07:30→20:41)
[2023-04-12] MEDS ORDERED: INSULIN REGULAR (HUMAN) 100 UNIT/ML SQ SCH (07:30)
--- NOTE | 2023-04-12 08:59 | RAD REPORT ---
EXAM DESCRIPTION: US - Extremity Venous Uni Ltd - 04/12/2023 4:47 am CLINICAL HISTORY: Edema. Rule out DVT COMPARISON: None. TECHNIQUE: Real-time sonographic evaluation of the left lower extremity deep venous system was perfo rmed. FINDINGS: Normal compressibility, flow augmentation, phasic flow and spontaneous flow is identified in the left lower extremity deep venous system. No intraluminal filling defects seen. Mild subcutane ous edema along the lower leg. IMPRESSION: No evidence of DVT in the left lower extremity.
[2023-04-12] MEDS: HYDRALAZINE HCL 25 MG TABLET PO SCH ×3 (09:00→20:41)
[2023-04-12] MEDS ORDERED: DOXYCYCLINE 100 MG in NA CHLORIDE 0.9% 100 ML IVPB SCH (09:00)
[2023-04-12] MEDS ORDERED: CEFEPIME 1 GM in NA CHLORIDE 0.9% 100 ML IV SCH (09:00)
[2023-04-12] MEDS ORDERED: HEPARIN 5000 UNIT/ML 1 ML VIAL SQ SCH (09:00)
[2023-04-12] MEDS: HYDROMORPHONE HCL 0.5 MG/0.5 ML INJ IV PRN ×3 (09:32→22:07)
[2023-04-12] MEDS ORDERED: HYDROMORPHONE HCL 0.5 MG/0.5 ML INJ ONE (09:33)
[2023-04-12] MEDS ORDERED: NA CHLORIDE 0.9% 100 ML ONE (09:34)
[2023-04-12] MEDS ORDERED: DOXYCYCLINE HYCLATE 100MG INJ ONE (09:34)
[2023-04-12] MEDS ORDERED: HYDRALAZINE HCL 25 MG TABLET ONE (09:34)
[2023-04-12] MEDS ORDERED: NA CHLORIDE 0.9% 1,000 ML IV PRN (09:39)
[2023-04-12] MEDS ORDERED: MANNITOL 25% 12.5 GM/50 ML VIAL IV PRN (09:39)
--- NOTE | 2023-04-12 09:51 | P.CNS ---
Date of Consult: 04/12/23 Reason for Consult: ESRD Requesting Physician: zabrina hollis Chief Complaint: Left knee cellulitis History of Present Illness: 50-year-old female with a past medical history of metabolic encephalopathy, insomnia, gastroparesis, hypertension, pseudoaneurysm, peripheral neuropathy, liver failure, cyclic vomiting syndrome, diabetes, seizures, CAD with 2 cardiac stents, history of cardiac arrest, ESRD on dialysis liver disease presents to the emergency room for fall with abrasion on the left knee. Left knee pain and swelling is progressively getting worse. Reports pain to the left lower extremity 9 out of 10. No reported fever, chills. She reports Dialysis MWF, resports missing dialysis on Wednesday. No reported shortness of breath, chest pain, abdominal pain. Plan to admit for left lower extremity cellulitis hyperkalemia, chronic kidney disease. Treated with calcium gluconate, insulin with D50 5W to lower potassium. Clonidine for hypertension, vancomycin for cellulitis. Laboratory evaluation BUN 82 creatinine 11.90, GFR 4, WBCs within normal limits hemoglobin 9.6 hematocrit 28.4 thrombocytopenia platelets 101 blood cultures ordered vital signs hypertensive on arrival 216/95, afebrile 98.4, pulse 69 respiration 18 22:46 This 42 yrs old Female presents to ER via Wheelchair with complaints of Leg ms3 Swelling, Leg Pain. 22:46 42-year-old female with past medical history of encephalopathy, gastroparesis, ms3 hypertension, IBS, liver failure, peripheral neuropathy presents to the emergency department for left leg swelling after falling on Wednesday. Patient states she has applied Neosporin to the abrasion on her left knee and the erythema is getting worse. Patient states her discomfort is a 9/10. Patient denies any alleviating or inciting factors. Allergies zolpidem tartrate [From Ambien] Allergy (Intermediate, Verified 10/17/16 23:08) Itching/Hives/Rash codeine [Codeine] Allergy (Verified 10/17/16 23:08) Hives fluphenazine enanthate [From Prolixin] Allergy (Verified 10/17/16 23:08) ARM NUMBNESS fluphenazine HCl [From Prolixin] Allergy (Verified 10/17/16 23:08) ARM NUMBNESS guaifenesin [From Prolex D] Allergy (Verified 10/17/16 23:08) Hives lisinopril Allergy (Verified 04/21/17 10:26) Anaphylaxis morphine Allergy (Verified 10/01/20 10:03) Itching Penicillins Allergy (Verified 10/17/16 23:08) Hives phenylephrine HCl [From Prolex D] Allergy (Verified 10/17/16 23:08) Hives quetiapine [From Seroquel] Allergy (Verified 12/31/22 03:18) Anaphylaxis cefepime Adverse Reaction (Severe, Verified 12/31/22 03:18) Anaphylaxis nitrofurantoin Adverse Reaction (Verified 08/07/17 23:41) liver failure Home medications list reviewed: Yes Home Medications: Furosemide [Lasix*] 80 mg PO BID 09/30/20 Buspirone HCl [Buspar] 1 tab PO BID 08/22/21 Diphenhydramine [Benadryl*] 25 mg PO Q6HP PRN #30 tab 09/10/21 Quetiapine Fumarate [Seroquel] 100 mg PO BEDTIME 10/09/21 Pantoprazole [Protonix Tab*] 40 mg PO DAILY #30 tab 03/25/22 Amlodipine [Norvasc*] 5 mg PO BID #60 tab 09/10/22 Ascorbate Calcium [Vitamin C] 500 mg PO BID #60 tab 09/10/22 Aspirin Chewable [Aspirin Chewable*] 81 mg PO DAILY #30 tab.chew 09/10/22 Calcitrol [Rocaltrol*] 0.5 mcg PO DAILY #60 cap 09/10/22 Clopidogrel Bisulfate [Plavix*] 75 mg PO DAILY #30 tab 09/10/22 Divalproex Sodium [Depakote] 1 tab PO BID #60 tab 09/10/22 Doxazosin [Cardura*] 2 mg PO BID #60 tab 09/10/22 Folic Acid/Vit B Complex and C [Dialyvite 800 Chewable Wafer] 800 mcg PO DAILY #30 tab.chew 09/10/22 Hydralazine HCl 50 mg PO TID #90 tab 09/10/22 Losartan Potassium [Cozaar*] 50 mg PO BID #60 tablet 09/10/22 Metoprolol Succinate [Toprol Xl*] 25 mg PO BID #60 tab 09/10/22 Pregabalin 25 mg PO DAILY #30 tab 09/10/22 Vitamin D [Drisdol*] 50,000 unit PO Q7D #4 cap 09/10/22 Cefdinir [Cefdinir*] 300 mg PO BID #10 cap 01/01/23 Docusate [Colace Cap*] 100 mg PO BID #60 cap 01/01/23 Metoclopramide [Reglan*] 5 ml PO TID PRN #500 ml 01/01/23 Nepro Shake [Nepro*] 237 ml PO TID #90 can 01/01/23 Promethazine Tab [Phenergan*] 25 mg PO Q6HP PRN #30 tab 01/01/23 metroNIDAZOLE [Flagyl] 500 mg PO Q12H #10 tab 01/01/23 - Past Medical/Surgical History Diabetic: Yes -: Chronic Diastolic CHF -: ESRD on HD (Dr. Morin/ Dr. Yusuf) -: HTN -: DM II with CKD, Polyneuropathy, Gastroparesis -: Obesity -: Post Traumatic Stress Disorder -: Schizoaffective disorder -: x 2 -: Tubal ligation -: Stents RUE, RLE & subclavian -: Right groin "aneurysm" -: RUE fistula for dialysis -: RUE fistula for dialysis Psychosocial/ Personal History: She is , she has 2 children, she does not work. She lives with her boyfriend and daughter. - Family History Mother Medical History: Hypertension, Diabetes, Cancer, Other (see notes) Notes: hypothyroid, asthma, breast cancer Father Medical History: Diabetes, Cancer Notes: - stomach/ lung/ prostate cancer, diabetes - Social History Smoking Status: Current some day smoker Alcohol use: No CD- Drugs: No Caffeine use: Yes Place of Residence: Home Review of Systems 10-point ROS is otherwise unremarkable General: Weakness, Malaise Respiratory: SOB with Excertion Gastrointestinal: Nausea, Vomiting Integumentary: Lesions Physical Examination Temp Pulse Resp BP Pulse Ox 97.9 F 65 16 164/70 H 100 04/12/23 04:05 04/12/23 07:58 04/12/23 09:32 04/12/23 07:58 04/12/23 09:32 General: In no apparent distress, Oriented x3, Cooperative HEENT: Atraumatic Neck: Supple Respiratory: Diminished Cardiovascular: Regular rate/rhythm, Edema Gastrointestinal: Soft and benign, Non-distended Musculoskeletal: No clubbing, No contractures Integumentary: No cyanosis, Tenderness/swelling, Erythema Neurological: Normal speech Laboratory Data (last 24 hrs) 04/12/23 04/12/23 04/11/23 00:35 00:35 22:35 WBC 3.80 L Hgb 9.6 L Hct 28.4 L Plt Count 101 L Sodium 135 L Cancelled Potassium 6.2 H* Cancelled BUN 82 H Cancelled Creatinine 11.90 H Cancelled Glucose 133 H Cancelled Total Bilirubin 0.6 Cancelled AST 20 Cancelled ALT 14 Cancelled Alkaline Phosphatase 125 H Cancelled 04/11/23 22:35 WBC Cancelled Hgb Cancelled Hct Cancelled Plt Count Cancelled Sodium Potassium BUN Creatinine Glucose Total Bilirubin AST ALT Alkaline Phosphatase Imagings Data: EXAM DESCRIPTION: US - Extremity Venous Uni Ltd - 04/12/2023 4:47 am CLINICAL HISTORY: Edema. Rule out DVT COMPARISON: None. TECHNIQUE: Real-time sonographic evaluation of the left lower extremity deep venous system was performed. FINDINGS: Normal compressibility, flow augmentation, phasic flow and spontaneous flow is identified in the left lower extremity deep venous system. No intraluminal filling defects seen. Mild subcutaneous edema along the lower leg. IMPRESSION: No evidence of DVT in the left lower extremity. Conclusions/Impression: ESRD on HD -Acute HD today Hyperkalemia -Acute HD today HTN with CKD/ CHF -Continue Hydralazine Diastolic CHF, A/C -Low sodium diet -Daily weight -Acute HD with UF Anemia in CKD -Retacrit TIW CKD MBD -Start Ergo Left Knee Cellulitis -Continue Abx Cigarette Smoker -Recommend cessation Hospitalist and ER notes reviewed Thank you kindly for the consultation
[2023-04-12 09:59] LABS: Potassium 5.6 mEq/L (3.5-5.1)
[2023-04-12] MEDS ORDERED: ALBUMIN HUMAN 25% 50 ML IV SCH (10:00)
[2023-04-12 10:39] LABS: Magnesium 1.8 mg/dL (1.6-2.4); Phosphorus 8.8 mg/dL (2.5-4.9)
[2023-04-12] MEDS ORDERED: METOCLOPRAMIDE 10 MG/2mL INJ ONE (10:55)
[2023-04-12] MEDS ORDERED: METOCLOPRAMIDE 10 MG/2mL INJ IV ONE (11:00)
[2023-04-12] MEDS: EPOETIN ALFA 10,000 UNIT/ML VIAL IV SCH (13:30)
[2023-04-12 14:17] LABS: Hepatitis B Surface Ab - Quant > 1000.00 mIU/mL (<8.0); Hepatitis B surface AG Interp. Nonreactive (Nonreactive)
--- NOTE | 2023-04-12 18:05 | EKG ---
Test Date: 2023-04-12 Test Time: 01:39:34 Communications Lead: OLIVIA MEASUREMENT RESULTS: Intervals: Rate: 69 MD: 184 QRSD: 90 QT: 434 QTc: 465 [place]: P: 66 MD: 184 QRS: 95 T: 57 INTERPRETIVE STATEMENTS: Normal sinus rhythm Rightward axis Nonspecific ST abnormality Abnormal ECG Compared to ECG 03/08/2023 20:43:44 Right-axis deviation now present ST (T wave) deviation now present Electronically Signed On 04-12-23 18:04:43 CDT by Maximilian Mcnally
--- NOTE | 2023-04-12 19:30 | P.PN ---
Date of Service: 04/12/23 Patient seen and examined. She is complaining of significantly swollen left lower EXTR with pain, Noted erythema on the knee and anterior mcdermott as well as scabbed wound on the anterior mcdermott from previous fall. Admitting diagnosis: Infected wound with cellulitis of left lower extremity. ESRD Hypoglycemia Plan: Aggressive IV antibiotics Supportive measures Nephrology consulted for hemodialysis. Hypoglycemia protocol.
[2023-04-12] MEDS ORDERED: VANCOMYCIN 1.25 GM in NA CHLORIDE 0.9% 250 ML IVPB ONE (20:20)
[2023-04-12 22:34] LABS: Absolute Lymphocytes (CBC) 2.7 K/uL (0.7-4.9); Hematocrit 32.9 % (36.0-45.0); MCV 81.5 fL (80-100); MPV 6.5 fL (7.6-11.3); Platelets 404 thou/uL (152-406); RBC Red Blood Cell Count 4.04 M/uL (3.86-4.86)
[2023-04-13] MEDS ORDERED: AZTREONAM 1 GM in NA CHLORIDE 0.9% 100 ML IV SCH ×2 (01:00→21:00)
[2023-04-13] MEDS ORDERED: AZTREONAM 1 GM/VIAL ONE (01:23)
[2023-04-13] MEDS ORDERED: NA CHLORIDE 0.9% 100 ML ONE (01:28)
[2023-04-13] MEDS: HYDROMORPHONE HCL 0.5 MG/0.5 ML INJ IV PRN (03:25)
[2023-04-13] MEDS: HYDRALAZINE HCL 20 MG/ML VIAL IV PRN ×3 (03:25→18:16)
[2023-04-13] MEDS: ONDANSETRON 4 MG/2 ML VIAL IV PRN (05:22)
--- NOTE | 2023-04-13 07:16 | P.PN ---
Date of Service: 04/13/23 Subjective: Feeling a little better reports falling on concrete and has been slowly getting worse since then; more red/painful so presented to ED feels better today -less red, less painful tired this morning, slight confusion afebrile ROS: 10 point ROS as noted above, otherwise negative Physical Exam: GEN: Alert, orientedx3, with slight confusion, anxious HEENT: Normal conjunctiva, sclera anicteric CV: Regular rate and rhythm, 1+ BLE edema, L >R slightly Pulm: Nonlabored respirations on 3L NC, diminished at bases b/l ABD: Soft, nontender, nondistended Integumentary: LLE: Superficial abrasion with surrounding erythema/swelling, no purulent drainage Neuro: Normal speech, +anxious vitals reviewed Problem List: LLE cellulitis ESRD on HD MWF Hypertensive urgency Hyperkalemia anemia of chronic disease chronic Thrombocytopenia, chronic NIDDM2 with neuropathy Chronic Diastolic CHF CAD s/p stents x2 Schizophrenia\PTSD Gastroparesis Liver disease Seizures Cyclic vomiting syndrome Schizoaffective disorder Nicotine dependence LLE cellulitis Venous Doppler (04/12): no DVT ID consulted blood cx: pending continue empiric vanc dc aztrenam cellulitis /wound seems to be improving based on prior reports afebrile, no leukocytosis Wound care consult ESRD on HD MWF Nephrology consulted Avoid nephrotoxic medications dialysis per nephrology Hypertensive urgency monitor on tele; PRN antihypertensives continue home medications need to confirm home meds patient states she was recently taken off losartan, and other med changes done recently she does seem to have some confusion, so uncertain on accuracy family to try and review recent bottle prescriptions at home Hyperkalemia Trend electrolytes; replete as needed anemia of chronic disease chronic Thrombocytopenia, chronic Daily labs. Continue to monitor NIDDM2 with neuropathy Accu-Cheks, sliding scale insulin PRN glucagen Chronic Diastolic CHF CAD s/p stents x2 Schizophrenia\PTSD Gastroparesis Liver disease Seizures Cyclic vomiting syndrome Schizoaffective disorder confirm home medications, restart as appropriate Code: Full Dispo: Home, ~2 days Pending further improvement, cx results, dialysis
[2023-04-13] MEDS: INSULIN REGULAR (HUMAN) 100 UNIT/ML SQ SCH ×4 (07:30→21:00)
--- NOTE | 2023-04-13 08:24 | P.CNS ---
Date of Consult: 04/13/23 Reason for Consult: cellulitis Chief Complaint: Left knee cellulitis History of Present Illness: Patient is a 42-year-old female with a past medical history of diabetes mellitus type 2, end-stage renal disease on hemodialysis, hypertension, cyclic vomiting syndrome, seizure disorder, CAD s/p stents x2 who presented to the ED with complaints of left knee pain and swelling. Left knee with abrasion following a fall at home, edema and pain had progressively been worsening. Patient was admitted for left lower extremity cellulitis, hyperkalemia. She was started on vancomycin. Infectious disease was consulted. Allergies zolpidem tartrate [From Ambien] Allergy (Intermediate, Verified 10/17/16 23:08) Itching/Hives/Rash codeine [Codeine] Allergy (Verified 10/17/16 23:08) Hives fluphenazine enanthate [From Prolixin] Allergy (Verified 10/17/16 23:08) ARM NUMBNESS fluphenazine HCl [From Prolixin] Allergy (Verified 10/17/16 23:08) ARM NUMBNESS guaifenesin [From Prolex D] Allergy (Verified 10/17/16 23:08) Hives lisinopril Allergy (Verified 04/21/17 10:26) Anaphylaxis morphine Allergy (Verified 10/01/20 10:03) Itching Penicillins Allergy (Verified 10/17/16 23:08) Hives phenylephrine HCl [From Prolex D] Allergy (Verified 10/17/16 23:08) Hives quetiapine [From Seroquel] Allergy (Verified 12/31/22 03:18) Anaphylaxis cefepime Adverse Reaction (Severe, Verified 12/31/22 03:18) Anaphylaxis nitrofurantoin Adverse Reaction (Verified 08/07/17 23:41) liver failure Home medications list reviewed: Yes Home Medications: Furosemide [Lasix*] 80 mg PO BID 09/30/20 Buspirone HCl [Buspar] 1 tab PO BID 08/22/21 Diphenhydramine [Benadryl*] 25 mg PO Q6HP PRN #30 tab 09/10/21 Quetiapine Fumarate [Seroquel] 100 mg PO BEDTIME 10/09/21 Pantoprazole [Protonix Tab*] 40 mg PO DAILY #30 tab 03/25/22 Amlodipine [Norvasc*] 5 mg PO BID #60 tab 09/10/22 Ascorbate Calcium [Vitamin C] 500 mg PO BID #60 tab 09/10/22 Aspirin Chewable [Aspirin Chewable*] 81 mg PO DAILY #30 tab.chew 09/10/22 Calcitrol [Rocaltrol*] 0.5 mcg PO DAILY #60 cap 09/10/22 Clopidogrel Bisulfate [Plavix*] 75 mg PO DAILY #30 tab 09/10/22 Divalproex Sodium [Depakote] 1 tab PO BID #60 tab 09/10/22 Doxazosin [Cardura*] 2 mg PO BID #60 tab 09/10/22 Folic Acid/Vit B Complex and C [Dialyvite 800 Chewable Wafer] 800 mcg PO DAILY #30 tab.chew 09/10/22 Hydralazine HCl 50 mg PO TID #90 tab 09/10/22 Losartan Potassium [Cozaar*] 50 mg PO BID #60 tablet 09/10/22 Metoprolol Succinate [Toprol Xl*] 25 mg PO BID #60 tab 09/10/22 Pregabalin 25 mg PO DAILY #30 tab 09/10/22 Vitamin D [Drisdol*] 50,000 unit PO Q7D #4 cap 09/10/22 Cefdinir [Cefdinir*] 300 mg PO BID #10 cap 01/01/23 Docusate [Colace Cap*] 100 mg PO BID #60 cap 01/01/23 Metoclopramide [Reglan*] 5 ml PO TID PRN #500 ml 01/01/23 Nepro Shake [Nepro*] 237 ml PO TID #90 can 01/01/23 Promethazine Tab [Phenergan*] 25 mg PO Q6HP PRN #30 tab 01/01/23 metroNIDAZOLE [Flagyl] 500 mg PO Q12H #10 tab 01/01/23 - Past Medical/Surgical History Diabetic: Yes -: Chronic Diastolic CHF -: ESRD on HD (Dr. Morin/ Dr. Yusuf) -: HTN -: DM II with CKD, Polyneuropathy, Gastroparesis -: Obesity -: Schizoaffective Disorder -: HTN -: Post Traumatic Stress Disorder -: Hypertension -: Post Traumatic Stress Disorder -: Schizoaffective disorder -: CHF, diastolic -: x 2 -: Tubal ligation -: Stents RUE, RLE & subclavian -: Right groin "aneurysm" -: RUE fistula for dialysis -: RUE fistula for dialysis Psychosocial/ Personal History: She is , she has 2 children, she does not work. She lives with her boyfriend and daughter. - Family History Mother Medical History: Hypertension, Diabetes, Cancer, Other (see notes) Notes: hypothyroid, asthma, breast cancer Father Medical History: Diabetes, Cancer Notes: - stomach/ lung/ prostate cancer, diabetes - Social History Smoking Status: Current some day smoker Alcohol use: No CD- Drugs: No Caffeine use: Yes Place of Residence: Home Review of Systems 10-point ROS is otherwise unremarkable Musculoskeletal: Leg Pain (left leg, improving) Physical Examination Temp Pulse Resp BP Pulse Ox 97.4 F 71 18 175/80 H 99 04/13/23 04:00 04/13/23 04:00 04/13/23 04:00 04/13/23 04:00 04/13/23 04:00 General: In no apparent distress, Oriented x3 HEENT: Atraumatic, Normocephalic Respiratory: Normal air movement (on 3L nasal cannula), Diminished Cardiovascular: Normal S1 S2, Edema (BLE edema) Gastrointestinal: Normal bowel sounds, Soft and benign Integumentary: Skin lesion (left leg just below knee) Neurological: Normal speech Laboratory data: Reviewed Microbiology data: Reviewed Imagings Data: -Reviewed Conclusions/Impression: Problem list Cellulitis left lower extremity Diabetes mellitus type 2 End-stage renal disease Chronic diastolic CHF Hypertension Obesity Gastroparesis CAD s/p stents x2 Cellulitis of Left Lower Extremity - left knee abrasion, mild surrounding erythema. Patient reports significant improvement in pain. - Blood cultures 04/12: Pending - Multiple hospitalizations within the past 6 months. High risk for MRSA. Patient was started on Vancomycin IV on 04/12. Recommendations - Cellulitis LLE: recommend continuing with antibiotic therapy for 10 days. Currently on Vancomycin, continue for now. - Follow up with final blood culture results - Monitor WBC and fever trends - Left knee abrasion: Jenison left knee abrasion with betadine and cover with foam dressing Case discussed with Bal Coronado
[2023-04-13 08:37] LABS: Magnesium 1.8 mg/dL (1.6-2.4); Potassium 4.6 mEq/L (3.5-5.1)
[2023-04-13] MEDS: HYDRALAZINE HCL 25 MG TABLET PO SCH ×3 (09:14→20:58)
[2023-04-13 09:23] LABS: Absolute Lymphocytes (CBC) 0.7 K/uL (0.7-4.9); Hematocrit 27.8 % (36.0-45.0); Lymphocytes % 16.9 % (15.3-44.8); MCV 93.6 fL (80-100); MPV 9.8 fL (7.6-11.3); RBC Red Blood Cell Count 2.97 M/uL (3.86-4.86)
[2023-04-13 09:24] LABS: Platelets 101 thou/uL (152-406)
[2023-04-13] MEDS ORDERED: LOSARTAN POTASSIUM 50 MG TABLET PO SCH (13:00)
[2023-04-13] MEDS: AMLODIPINE 5 MG TAB PO SCH ×2 (13:30→20:58)
[2023-04-13] MEDS ORDERED: LORazepam 2 MG/ML VIAL IV PRN (14:18)
--- NOTE | 2023-04-13 16:28 | RAD REPORT ---
EXAM DESCRIPTION: RADChest Single View04/13/2023 1:22 pm CLINICAL HISTORY: dyspnea, r/o pulm edema / flash COMPARISON: Chest Single View dated 09/06/2022; Chest Single View dated 09/03/2022; Chest Single View dated 07/23/2022; Chest Single View dated 12/05/2021 TECHNIQUE: Portable AP view of the chest. FINDINGS: The lungs are clear. No pneumothorax or effusion. Stable cardiomegaly. Mediastinal contou rs are unremarkable. IMPRESSION: No acute findings apart from stable cardiomegaly.
[2023-04-13] MEDS: BUSPIRONE HCL 15 MG TABLET PO SCH ×2 (18:16→20:59)
[2023-04-13] MEDS ORDERED: METOPROLOL XL 25 MG TAB PO SCH (21:00)
[2023-04-13] MEDS: LOSARTAN POTASSIUM 50 MG TABLET PO SCH (21:35)
[2023-04-13] MEDS ORDERED: atenoloL 25 MG TAB PO SCH (21:35)
--- NOTE | 2023-04-13 21:35 | P.PN ---
Date of Service: 04/13/23 Vital Signs Temp Pulse Resp BP Pulse Ox 98.5 F 77 20 177/77 H 98 04/13/23 16:00 04/13/23 20:59 04/13/23 16:00 04/13/23 20:59 04/13/23 16:00 Medications Amlodipine Besylate (Amlodipine 5 Mg Tab) 5 mg PO BID [facility] Last Admin: 04/13/23 20:58 Dose: 5 mg Atenolol (Atenolol 25 Mg Tab) 25 mg PO BEDTIME NOHEMI Buspirone HCl (Buspirone Hcl 15 Mg Tablet) 15 mg PO BID [facility] Last Admin: 04/13/23 20:59 Dose: 15 mg Diphenhydramine HCl (Diphenhydramine 25 Mg Tab/Cap) 25 mg PO Q6HP PRN PRN Reason: ITCHING Last Admin: 04/12/23 17:35 Dose: 25 mg Epoetin Vasu (Epoetin Vasu 10,000 Unit/Ml Vial) 10,000 unit IV EVERY HD NOHEMI Last Admin: 04/12/23 13:30 Dose: 10,000 unit Glucagon (Glucagon 1 Mg/Vial) 1 mg IM 1X PRN; Protocol PRN Reason: HYPOGLYCEMIA Heparin Sodium (Porcine) (Heparin 1,000 Unit/Ml Vial) 3,000 unit IV EVERY HD PRN PRN Reason: Prevent HD System Clotting Last Admin: 04/12/23 12:27 Dose: 3,000 unit Hydralazine HCl (Hydralazine Hcl 25 Mg Tablet) 50 mg PO TID [facility] Last Admin: 04/13/23 20:58 Dose: 50 mg Hydralazine HCl (Hydralazine Hcl 20 Mg/Ml Vial) 10 mg IV Q6HP PRN PRN Reason: Goal to achieve SBP in comment Last Admin: 04/13/23 18:16 Dose: 10 mg Hydromorphone HCl (Hydromorphone Hcl 0.5 Mg/0.5 Ml Inj) 0.5 mg IV Q4H PRN PRN Reason: Pain scale 8-10 (Severe) Last Admin: 04/13/23 03:25 Dose: 0.5 mg Dextrose (Dextrose 10% Water Iv Soln.) 125 mls @ 0 mls/hr IV PRN PRN; Protocol PRN Reason: HYPOGLYCEMIA Last Admin: 04/12/23 06:34 Dose: 250 mls Albumin Human (Albumin 25%) 50 mls @ 100 mls/hr IV EVERY HD NOHEMI Vancomycin HCl 1 gm/ Sodium (Chloride) 250 mls @ 250 mls/hr IVPB AFTER EACH DIALYSIS NOHEMI; Protocol Insulin Human Regular (Insulin Regular (Human) 100 Unit/Ml) 0 unit SQ ACHS NOHEMI; Protocol Last Admin: 04/13/23 21:00 Dose: Not Given Lamotrigine (Lamotrigine 25 Mg Tab) 25 mg PO Q48H NOHEMI Lorazepam (Lorazepam 2 Mg/Ml Vial) 0.5 mg IV Q8H PRN PRN Reason: ANXIETY Last Admin: 04/13/23 18:28 Dose: 0.5 mg Losartan Potassium (Losartan Potassium 50 Mg Tablet) 50 mg PO BID NOHEMI Mannitol (Mannitol 25% 12.5 Gm/50 Ml Vial) 12.5 gm IV EVERY HD PRN PRN Reason: Titrate to SBP (MUST DEFINE) Ondansetron HCl (Ondansetron 4 Mg/2 Ml Vial) 4 mg IV Q6H PRN PRN Reason: NAUSEA / VOMITING Last Admin: 04/13/23 05:22 Dose: 4 mg Assessment/ Plan: Nephrology No dyspnea No chest pain Nausea No acute events overnight Vitals, medications, blood work and imaging reviewed in the chart. General: In no apparent distress, Oriented x3, Cooperative HEENT: Atraumatic Neck: Supple Respiratory: Diminished Cardiovascular: Regular rate/rhythm, Edema Gastrointestinal: Soft and benign, Non-distended Musculoskeletal: No clubbing, No contractures Integumentary: No cyanosis, Tenderness/swelling, Erythema Neurological: Normal speech Laboratory Data (last 24 hrs) 04/12/23 04/12/23 04/11/23 00:35 00:35 22:35 WBC 3.80 L Hgb 9.6 L Hct 28.4 L Plt Count 101 L Sodium 135 L Cancelled Potassium 6.2 H* Cancelled BUN 82 H Cancelled Creatinine 11.90 H Cancelled Glucose 133 H Cancelled Total Bilirubin 0.6 Cancelled AST 20 Cancelled ALT 14 Cancelled Alkaline Phosphatase 125 H Cancelled 04/11/23 22:35 WBC Cancelled Hgb Cancelled Hct Cancelled Plt Count Cancelled Sodium Potassium BUN Creatinine Glucose Total Bilirubin AST ALT Alkaline Phosphatase Imagings Data: EXAM DESCRIPTION: US - Extremity Venous Uni Ltd - 04/12/2023 4:47 am CLINICAL HISTORY: Edema. Rule out DVT COMPARISON: None. TECHNIQUE: Real-time sonographic evaluation of the left lower extremity deep venous system was performed. FINDINGS: Normal compressibility, flow augmentation, phasic flow and spontaneous flow is identified in the left lower extremity deep venous system. No intraluminal filling defects seen. Mild subcutaneous edema along the lower leg. IMPRESSION: No evidence of DVT in the left lower extremity. Conclusions/Impression: ESRD on HD -HD TIW Hyperkalemia -Renal diet HTN with CKD/ CHF -Continue Hydralazine -Change Metoprolol to Atenolol -Start Losartan BID Diastolic CHF, A/C -Low sodium diet -Daily weight -HD with UF Anemia in CKD -Retacrit TIW CKD MBD -Continue Ergo Left Knee Cellulitis -Continue Abx Cigarette Smoker -Recommend cessation Hospitalist note reviewed Case reviewed with Dr. Stallworth
[2023-04-14 04:54] LABS: Absolute Lymphocytes (CBC) 0.9 K/uL (0.7-4.9); Hematocrit 27.7 % (36.0-45.0); Lymphocytes % 21.3 % (15.3-44.8); MPV 9.6 fL (7.6-11.3); Platelets 107 thou/uL (152-406); RBC Red Blood Cell Count 2.95 M/uL (3.86-4.86)
[2023-04-14 05:09] LABS: Bilirubin Total 0.6 mg/dL (0.2-1.0); Magnesium 1.8 mg/dL (1.6-2.4); Potassium 4.8 mEq/L (3.5-5.1); Protein, Total 6.5 g/dL (6.4-8.2); Troponin High Sensitivity 14.9 pg/mL (<58.9)
[2023-04-14] MEDS: INSULIN REGULAR (HUMAN) 100 UNIT/ML SQ SCH ×3 (07:30→16:30)
--- NOTE | 2023-04-14 08:50 | P.PN ---
Date of Service: 04/14/23 Chief Complaint: Left knee cellulitis Subjective: Patient seen and examined at bedside. No new or worsening complaints. Left knee abrasion improving. No acute events reported overnight. Physical Examination Temp Pulse Resp BP Pulse Ox 97.9 F 64 18 164/76 H 94 04/14/23 04:00 04/14/23 04:00 04/14/23 04:00 04/14/23 04:00 04/14/23 04:00 General: In no apparent distress, Oriented x3 HEENT: Atraumatic, Normocephalic Respiratory: Normal air movement. Diminished at bases. Breathing comfortably on room air at this time. Cardiovascular: Normal S1 S2. BLE edema. Gastrointestinal: Normal bowel sounds, Soft and benign Integumentary: Skin abrasion left lower leg Neurological: Normal speech Laboratory data: Reviewed Microbiology data: Reviewed Imagings Data: Reviewed Medications List: Reviewed Assessment and Plan Problem list Cellulitis left lower extremity Diabetes mellitus type 2 End-stage renal disease Chronic diastolic CHF Hypertension Obesity Gastroparesis CAD s/p stents x2 Cellulitis of Left Lower Extremity - left knee abrasion, mild surrounding erythema. Patient reports significant improvement in pain. - Blood cultures 04/12: no growth 24 hours - Multiple hospitalizations within the past 6 months. High risk for MRSA. Patient was started on Vancomycin IV on 04/12. Recommendations - Discontinue Vancomycin. Continue with local wound care. Silvadene topical BID to left knee/leg abrasion. Cover with foam dressing. - Monitor WBC and fever trends - Renally dose medications. Case discussed with Bal Coronado
[2023-04-14] MEDS ORDERED: lamoTRIgine 25 MG TAB PO SCH (09:00)
--- NOTE | 2023-04-14 09:41 | P.PN ---
Date of Service: 04/14/23 Subjective: Doesn't recall events yesterday - anxious/confused, +what appeared to be panic attack through morning mentation improved today, alert and oriented leg pain improving; +less red and less swollen dialysis today BP improving - 150-160s systolic ROS: 10 point ROS as noted above, otherwise negative Physical Exam: GEN: Alert, orientedx3, NAD HEENT: Normal conjunctiva, sclera anicteric CV: Regular rate and rhythm, 1+ BLE edema, L >R slightly Pulm: Nonlabored respirations on 2L NC, diminished at bases b/l ABD: Soft, nontender, nondistended Integumentary: LLE: Superficial abrasion with surrounding erythema/swelling, no purulent drainage Neuro: Normal speech, normal affect vitals reviewed Problem List: LLE cellulitis ESRD on HD MWF Hypertensive urgency Hyperkalemia anemia of chronic disease chronic Thrombocytopenia, chronic NIDDM2 with neuropathy Chronic Diastolic CHF CAD s/p stents x2 Schizophrenia\PTSD Gastroparesis Liver disease Seizures Cyclic vomiting syndrome Schizoaffective disorder Nicotine dependence LLE cellulitis Venous Doppler (04/12): no DVT ID consulted blood cx: NGTD continue empiric vanc dc aztrenam cellulitis /wound seems to be improving based on prior reports afebrile, no leukocytosis Wound care consult 04/13 patient more confused, anxious +what appeared to be panic attack through morning not acting like herself, similar to when she had cefepime toxicity / encephalopathy DC abx except vancomycin; restarted home psych meds 04/13 04/14 mentation improved ESRD on HD MWF Nephrology consulted Avoid nephrotoxic medications dialysis per nephrology Hypertensive urgency monitor on tele; PRN antihypertensives continue home medications need to confirm home meds patient states she was recently taken off losartan, and other med changes done recently she does seem to have some confusion, so uncertain on accuracy family to try and review recent bottle prescriptions at home metoprolol switched to atenolol 04/13 Hyperkalemia Trend electrolytes; replete as needed anemia of chronic disease chronic Thrombocytopenia, chronic Daily labs. Continue to monitor NIDDM2 with neuropathy Accu-Cheks, sliding scale insulin PRN glucagen Chronic Diastolic CHF CAD s/p stents x2 Schizophrenia\PTSD Gastroparesis Liver disease Seizures Cyclic vomiting syndrome Schizoaffective disorder confirm home medications, restart as appropriate restarted home psych meds 04/13 Code: Full Dispo: Home, ~1-2 day Pending further improvement, cx results, dialysis
[2023-04-14] MEDS: BUSPIRONE HCL 15 MG TABLET PO SCH (10:02)
[2023-04-14] MEDS: LOSARTAN POTASSIUM 50 MG TABLET PO SCH (10:03)
[2023-04-14] MEDS: HYDRALAZINE HCL 25 MG TABLET PO SCH ×2 (10:03→14:27)
[2023-04-14] MEDS: AMLODIPINE 5 MG TAB PO SCH (10:03)
[2023-04-14] MEDS: EPOETIN ALFA 10,000 UNIT/ML VIAL IV SCH (12:30)
[2023-04-14] MEDS ORDERED: SILVER SULFADIAZINE 1% 50 GM TOP SCH (15:50)
[2023-04-14] MEDS ORDERED: VANCOMYCIN 1 GM in NA CHLORIDE 0.9% 250 ML IVPB SCH (18:00)
--- NOTE | 2023-04-14 21:47 | P.PN ---
Date of Service: 04/14/23 Vital Signs Temp Pulse Resp BP Pulse Ox 97.4 F 65 16 149/72 H 96 04/14/23 08:00 04/14/23 08:00 04/14/23 08:00 04/14/23 08:00 04/14/23 08:00 Assessment/ Plan: Nephrology No dyspnea No chest pain Feeling better this morning No acute events overnight Vitals, medications, blood work and imaging reviewed in the chart. General: In no apparent distress, Oriented x3, Cooperative HEENT: Atraumatic Neck: Supple Respiratory: Diminished Cardiovascular: Regular rate/rhythm, Edema Gastrointestinal: Soft and benign, Non-distended Musculoskeletal: No clubbing, No contractures Integumentary: No cyanosis, Tenderness/swelling, Erythema Neurological: Normal speech Laboratory Data (last 24 hrs) 04/12/23 04/12/23 04/11/23 00:35 00:35 22:35 WBC 3.80 L Hgb 9.6 L Hct 28.4 L Plt Count 101 L Sodium 135 L Cancelled Potassium 6.2 H* Cancelled BUN 82 H Cancelled Creatinine 11.90 H Cancelled Glucose 133 H Cancelled Total Bilirubin 0.6 Cancelled AST 20 Cancelled ALT 14 Cancelled Alkaline Phosphatase 125 H Cancelled 04/11/23 22:35 WBC Cancelled Hgb Cancelled Hct Cancelled Plt Count Cancelled Sodium Potassium BUN Creatinine Glucose Total Bilirubin AST ALT Alkaline Phosphatase Imagings Data: EXAM DESCRIPTION: US - Extremity Venous Uni Ltd - 04/12/2023 4:47 am CLINICAL HISTORY: Edema. Rule out DVT COMPARISON: None. TECHNIQUE: Real-time sonographic evaluation of the left lower extremity deep venous system was performed. FINDINGS: Normal compressibility, flow augmentation, phasic flow and spontaneous flow is identified in the left lower extremity deep venous system. No intraluminal filling defects seen. Mild subcutaneous edema along the lower leg. IMPRESSION: No evidence of DVT in the left lower extremity. Conclusions/Impression: ESRD on HD -HD TIW Hyperkalemia -Renal diet HTN with CKD/ CHF -Continue Hydralazine -Continue Atenolol -Continue Losartan BID Diastolic CHF, A/C -Low sodium diet -Daily weight -HD with UF Anemia in CKD -Retacrit TIW CKD MBD -Continue Ergo Left Knee Cellulitis -Continue Abx Cigarette Smoker -Recommend cessation Hospitalist note reviewed Case reviewed with Dr. Stallworth
--- NOTE | 2023-04-15 06:57 | P.DS ---
Admission Date: 04/12/23 Discharge Date: 04/14/23 Disposition: ROUTINE DISCHARGE Discharge Condition: GOOD Reason for Admission: Left knee cellulitis Consultations: ID - Dr. Casiano Nephrology - Dr. Morin Brief History of Present Illness: 50yo F, PMH: metabolic encephalopathy, insomnia, gastroparesis, hypertension, pseudoaneurysm, peripheral neuropathy, liver failure, cyclic vomiting syndrome, diabetes, seizures, CAD with 2 cardiac stents, history of cardiac arrest, ESRD on dialysis liver disease Patient presents to the emergency room for fall with abrasion on the left knee. Left knee pain and swelling is progressively getting worse. Reports pain to the left lower extremity 9 out of 10. No reported fever, chills. She reports Dialysis MWF, resports missing dialysis on Wednesday. No reported shortness of breath, chest pain, abdominal pain. Plan to admit for left lower extremity cellulitis hyperkalemia, chronic kidney disease. Treated with calcium gluconate, insulin with D50 5W to lower potassium. Clonidine for hypertension, vancomycin for cellulitis. Laboratory evaluation BUN 82 creatinine 11.90, GFR 4, WBCs within normal limits hemoglobin 9.6 hematocrit 28.4 thrombocytopenia platelets 101 blood cultures ordered vital signs hypertensive on arrival 216/95, afebrile 98.4, pulse 69 respiration 18 Hospital Course: Problem List: LLE cellulitis ESRD on HD MWF Hypertensive urgency Hyperkalemia anemia of chronic disease chronic Thrombocytopenia, chronic NIDDM2 with neuropathy Chronic Diastolic CHF CAD s/p stents x2 Schizophrenia\PTSD Gastroparesis Liver disease Seizures Cyclic vomiting syndrome Schizoaffective disorder Nicotine dependence Patient presented withj leg swelling and concern for cellulitis. She recently fell and had a superficial abrasion. She reported increased pain and redness to her left leg around the abrasion. She was admitted for concern for cellulitis and treated with empiric antibiot ics. Given her allergies and risk, she received vancomycin and aztreonam. She underwent dialysis and the following day she reported improvement of her swelling and leg pain. She was noted to have confusion, anxiety, crying, and not fully recognizing family members. Similar episode occurred earlier this year secondary to cefepime toxicity. Infectious disease was consulted. Antibiotics were discontinued. She had improvement overnight and was back to her baseline the morning of 04/14. Vitals improved / stable, remained afebrile and without leukocytosis throughout hospitalization. ID recommended treatment with silvadene - topical only. no need for further oral/IV antibiotics. Patient felt better and ready for discharge. Advised to continue home meds as previously prescribed and follow up with PCP and nephrology in the coming days. It was unclear on the most accurate medication list, due to recent changes in medications. She reported blood pressure usually controlled. At time of discharge her blood pressure had improved. Recommend continuing home medications. Reportedly, atenolol, amlodipine, hydralazine, clonidine. She reported stopping her losartan this year but not sure why. Her electrical maintenance technician was consulted throughout hospitalization and recommended restarting. Physical Exam: GEN: Alert, orientedx3, NAD HEENT: Normal conjunctiva, sclera anicteric CV: Regular rate and rhythm, 1+ BLE edema, L >R slightly Pulm: Nonlabored respirations, diminished at bases b/l ABD: Soft, nontender, nondistended Integumentary: LLE: Superficial abrasion with surrounding erythema/swelling, no purulent drainage Neuro: Normal speech, normal affect Vital Signs/Physical Exam: Temp Pulse Resp BP Pulse Ox 97.4 F 65 16 149/72 H 96 04/14/23 08:00 04/14/23 08:00 04/14/23 08:00 04/14/23 08:00 04/14/23 08:00 Laboratory Data at Discharge: WBC 4.10 thou/uL (4.3-10.9) L 04/14/23 04:42 Hgb 9.3 g/dL (12.0-15.0) L 04/14/23 04:42 Hct 27.7 % (36.0-45.0) L 04/14/23 04:42 Plt Count 107 thou/uL (152-406) L 04/14/23 04:42 Sodium 136 mEq/L (136-145) 04/14/23 04:42 Potassium 4.8 mEq/L (3.5-5.1) 04/14/23 04:42 BUN 52 mg/dL (7-18) H 04/14/23 04:42 Creatinine 9.12 mg/dL (0.55-1.02) H 04/14/23 04:42 Glucose 156 mg/dL (74-106) H 04/14/23 04:42 Phosphorus Cancelled 04/12/23 10:24 Magnesium 1.8 mg/dL (1.6-2.4) 04/14/23 04:42 Total Bilirubin 0.6 mg/dL (0.2-1.0) 04/14/23 04:42 AST 18 U/L (15-37) 04/14/23 04:42 ALT 12 U/L (13-56) L 04/14/23 04:42 Alkaline Phosphatase 102 U/L (45-117) 04/14/23 04:42 Home Medications: Furosemide [Lasix*] 80 mg PO BID 09/30/20 Buspirone HCl [Buspar] 1 tab PO BID 08/22/21 Amlodipine [Norvasc*] 5 mg PO BID #60 tab 09/10/22 Aspirin Chewable [Aspirin Chewable*] 81 mg PO DAILY #30 tab.chew 09/10/22 Hydralazine HCl 50 mg PO TID #90 tab 09/10/22 Metoclopramide [Reglan*] 5 ml PO TID PRN #500 ml 01/01/23 Ascorbate Calcium [Vitamin C] 500 mg PO DAILY 04/14/23 Doxazosin [Cardura*] 2 mg PO BEDTIME 04/14/23 Losartan Potassium [Cozaar*] 50 mg PO BID 30 Days #60 tab 04/14/23 Pregabalin 50 mg PO DAILY 04/14/23 Silver Sulfadiazine Crm [Silvadene*] 1 appl TOP BID tube 04/14/23 atenoloL [Tenormin*] 25 mg PO BEDTIME 30 Days #30 tab 04/14/23 lamoTRIgine [Lamictal*] 25 mg PO Q48H tab 04/14/23 New Medications: Losartan Potassium [Cozaar*] 50 mg PO BID 30 Days #60 tab atenoloL [Tenormin*] 25 mg PO BEDTIME 30 Days #30 tab Physician Discharge Instructions: Patient presented withj leg swelling and concern for cellulitis. She recently f ell and had a superficial abrasion. She reported increased pain and redness to her left leg around the abrasion. She was admitted for concern for cellulitis and treated with empiric antibiotics. Given her allergies and risk, she received vancomycin and aztreonam. She underwent dialysis and the following day she reported improvement of her swelling and leg pain. She was noted to have confusion, anxiety, crying, and not fully recognizing family members. Similar episode occurred earlier this year secondary to cefepime toxicity. Infectious disease was consulted. Antibiotics were discontinued. She had improvement overnight and was back to her baseline the morning of 04/14. Vitals improved / stable, remained afebrile and without leukocytosis throughout hospitalization. ID recommended treatment with silvadene - topical only. no need for further oral/IV antibiotics. Patient felt better and ready for discharge. Advised to continue home meds as previously prescribed and follow up with PCP and nephrology in the coming days. It was unclear on the most accurate medication list, due to recent changes in medications. She reported blood pressure usually controlled. At time of discharge her blood pressure had improved. Recommend continuing home medications. Reportedly, atenolol, amlodipine, hydralazine, clonidine. She reported stopping her losartan this year but not sure why. Her electrical maintenance technician was consulted throughout hospitalization and recommended restarting. Followup: Jose Miguel Morin DO [Primary Care Provider] - Time spent managing pt's care (in minutes): 45
[2023-04-15 13:45] VITALS: BMI 31.1
[2023-04-15 13:46] VITALS: BP 149/72; TEMP 97.4; O2SAT 100
[2023-04-16] MEDS ORDERED: VANCOMYCIN 1 GM in NA CHLORIDE 0.9% 250 ML IVPB SCH (18:00)
== END 2023-04-14 18:19 | disposition home or self-care (01) | DRG 602 ==
LOC: ER 22:11 → ERHOLD 04-12 01:46 → 2ND 04-12 16:13
PROVIDERS: ADMIT Internal Medicine; ATTEND Hospitalist
PROC: 5A1D70Z Performance of Urinary Filtration, Intermittent, Less than 6 Hours Per Day (ICD-10-PCS; principal; 2023-04-12)
DX: L03.116 Cellulitis of left lower limb (principal); N18.6 End stage renal disease; I13.2 Hypertensive heart and chronic kidney disease with heart failure and with stage 5 chronic kidney disease, or end stage renal disease; I50.32 Chronic diastolic (congestive) heart failure; E11.22 Type 2 diabetes mellitus with diabetic chronic kidney disease; E11.649 Type 2 diabetes mellitus with hypoglycemia without coma; E11.42 Type 2 diabetes mellitus with diabetic polyneuropathy; E11.43 Type 2 diabetes mellitus with diabetic autonomic (poly)neuropathy; K31.84 Gastroparesis; D63.1 Anemia in chronic kidney disease; E87.5 Hyperkalemia; K76.9 Liver disease, unspecified; D69.6 Thrombocytopenia, unspecified; F25.9 Schizoaffective disorder, unspecified; F41.9 Anxiety disorder, unspecified; F43.10 Post-traumatic stress disorder, unspecified; I16.0 Hypertensive urgency; I25.10 Atherosclerotic heart disease of native coronary artery without angina pectoris; F17.200 Nicotine dependence, unspecified, uncomplicated; R56.9 Unspecified convulsions; R11.15 Cyclical vomiting syndrome unrelated to migraine; I25.2 Old myocardial infarction; Z88.5 Allergy status to narcotic agent; Z88.0 Allergy status to penicillin; Z88.8 Allergy status to other drugs, medicaments and biological substances; Z99.2 Dependence on renal dialysis; Z63.5 Disruption of family by separation and divorce; Z95.5 Presence of coronary angioplasty implant and graft; Z79.82 Long term (current) use of aspirin; Z98.51 Tubal ligation status; Z79.02 Long term (current) use of antithrombotics/antiplatelets; Z91.158 Patient's noncompliance with renal dialysis for other reason; Z91.048 Other nonmedicinal substance allergy status; Z28.310 Unvaccinated for COVID-19; Z79.899 Other long term (current) drug therapy
CPT/HCPCS: 36415; 71045; 80048; 80053; 80202; 82947; 83605; 83735; 84100; 84484; 85025; 86706; 87040; 87340; 90935; 93005; 93971; 96374; 96375; 99285; J0360; J0612; J1170; J1200; J1644; J1815; J2405; J2765; J7050; Q4081

== ENCOUNTER 2023-04-30 16:35 | Emergency (ER) | payer MEDICARE, OTHER ==
[2023-04-30] MEDS ORDERED: ONDANSETRON 4 MG (ODT) TAB ONE (17:20)
--- OUTSIDE RECORDS SUMMARY | 2023-04-30 17:36 | XMS REPORT | Continuity of Care Document ---
:1980 Author Organization [facility] t Address [address] [facility] [address] [place] [address] Care Team Providers Name Role Phone Jose Miguel Morin DO Primary Care Physician GC_GCBZW_Kirk_Julissa Attending Clinician Unavailable ZURDO CHILD Attending Clinician Unavailable VELMA TOLLIVER Attending Clinician Unavailable Danimoira_giovanna Attending Clinician Unavailable Nodal_J Attending Clinician Unavailable Desbernardo_T Attending Clinician Unavailable RAJ WEST Attending Clinician Unavailable Jose Miguel Morin DO Attending Clinician Rosy BURNS, Brooke Ricci Attending Clinician [phone] Seth HOGUECBessie Attending Clinician [phone] Forrest Cruz Attending Clinician Unavailable Melany Gilbert Attending Clinician Pat BURNS, Sivan Brand Attending Clinician Isra BURNS, Rachel Lew Attending Clinician [phone] Robe BURNS, Holden Elmore Attending Clinician Magaly BURNS, Shanda Higuera Attending Clinician Endy BURNS, Aurelio Attending Clinician Alesia Dodd Attending Clinician Joe BURNS, Mando Raphael Attending Clinician [phone] Jose Carlos BURNS, Veto Vincent Attending Clinician Juwan You MD Attending Clinician Sofi Roach MD Attending Clinician [phone] Gayle Jones RN Attending Clinician Unavailable [...] Adam BURNS, Sukhjinder Argueta Attending Clinician Brisa TOE STRIPPERHanane Rangel Attending Clinician MD JUWAN YOU Attending Clinician Unavailable Corin MAYS, Elodia Attending Clinician Unavailable Doctor Unassigned, Uncertain Attending Clinician Unavailable MONA BHAT Attending Clinician [...] Clinician Unavailable Deja Cleaning DPM Attending Clinician [phone] Pc, Adc Echo Room 1 - [...] Juárez Attending Clinician Atul Valdez Attending Clinician GC_GCBZW_Montrella_S Admitting Clinician Unavailable ZURDO CHILD Admitting Clinician Unavailable Daquan_giovanna Admitting Clinician Unavailable Nodal_J Admitting Clinician Unavailable Deshazo_T Admitting Clinician Unavailable RACHEL BRASHER Admitting Clinician Unavailable MD RACHEL BRASHER Admitting Clinician Unavailable Adams_R Admitting Clinician Unavailable TOM BARBER Admitting Clinician Unavailable MD JUWAN YOU Admitting Clinician Unavailable Arun Espitia MD, Eze Vail Admitting Clinician [phone] Hui Wright Admitting Clinician HUI WRIGHT Admitting Clinician Unavailable Rei Waldron Admitting Clinician Unavailable MOISE BHAKTA Admitting Clinician Unavailable Danae Cha Admitting Clinician Joe Juárez Admitting Clinician Payers Payer Name Policy Type Policy Number Effective Date Expiration Date S karla MEDICARE PART A AND [id number] 2014 2021 B 00:00:00 00:00:00 [facility] [id number] 2020 00:00:00 MEDICARE PART A \\T\\ [id number] 2014 B 00:00:00 MEDICAID [facility] [id number] 2020 00:00:[address] [facility] [id number] 2021 (MEDICARE 00:00:00 REPLACEMENT HMO) MEDICARE A B [id number] 2014 00:00:00 [place]ID [place] [id number] 2016 00:00:00 Problems Condition Condition Condition Status Onset Resolution Last Treating Co mments Source Name Details Category Date Date Treatment Clinician Date AVF AVF Disease Active Univers (arteriove (arteriove 9- it y of nous nous 00:00: [place] fistula) fistula) 00 Medica l Branch GASTROPARE GASTROPAR Diagnosis Active 2021-02-10 Memoria HELENA/IBS-D ESISI/IBS- 7 21:41:00 l /ANEMIA D/ANEMIA 00:00: Vin Active 00 01/03/2021 [facility] End stage End stage Disease Active [place] [...] 2020-12-24 Mem oria PATIENT GI PATIENT GI 426 10:39:00 l CONSULT CONSULT 00:00: Vin REFRACTORY REFRACTORY 00 GASTRO GASTRO Active 10/14/2020 [facility] Malfunctio Malfunctio Disease Active Overview : Univers n of n of 6-03 Formattin ity of arterioven arterioven 00:00: g of this [place] ou ous 00 note Medical dialysis dialysis might be Bran ch fistula, fistula, different initial initial from the encounter encounter original. Added automatic ally from request for surgery [id number] Candidiasi Candidiasi Disease Active U nivers s of vulva s of vulva 2-18 it y of and vagina [place] Screening Screening Disease Active Uni vers for breast for breast 2-18 it y of cancer cancer 00:00: [place] 00 Medical Branch NEW NEW Diagnosis Active 2018-07-26 Mem oria EVALUATION EVALUATION 07-12 09:39:00 l Active 00:00: [place] 07/12/2018 00 [facility] Pyogenic Pyogenic Disease Active 2017-06 Overview: Un lori granuloma granuloma 0-17 Formattin i ty of of of 00:00: g of this [place] conjunctiv conjunctiv 00 note Me dical a, right a, right might be Bran ch different from the original. 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 Eviscerat ion OS on 8 - Dr. 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 Added automatic ally from request for surgery [id number] ESRD (end ESRD (end Disease Active Overview: Univers stage stage 6-12 Formattin ity of renal renal 00:00: g of this [place] disease) disease) 00 note Medica l on on might be Branch dialysis dialysis different from the original. Added automatic ally from request for surgery [id number] Diabetes Diabetes Disease Active Metho di mellitus mellitus -25 st 00:00: [facility]osp[facility] 00 l LUQ pain LUQ pain Disease Active Unive rs 2-05 ity of 00:00: [place] 00 Medical Branch Glaucoma Glaucoma Disease Active Overview: Un lori due to due to 2 Formattin ity of silicone silicone 00:00: g of this Baljinder as oil oil 00 note Medical might be Branch different from the original. Added automatic ally from request for surgery [id number] Neovascula Neovascula Disease Active U nivers r r 1-18 ity of glaucoma, glaucoma, [place] left [place] left [place] Medica l Branch Increased Increased Disease Active Uni vers intraocula intraocula 1-18 it y of r pressure r pressure [place] Fall Fall Disease Active 2016-06 Univers 0-13 ity of 00:00: [place] [facility] Pneumonia Pneumonia Disease Active 2016-06 Uni vers 0-11 ity of 00:00: [place] [facility] Diabetes Diabetes Disease Active 2016-06 Overview: Un lori mellitus mellitus 0-05 Formattin ity of 00:00: g of this [place] 00 note Medical might be Branch different from the original. Added automatic ally from request for surgery [id number] Pseudotumo Pseudotumo Disease Active U nivers r cerebri r cerebri 9-25 ity of 00:00: [place] 00 Medical Branch Ulcer of Ulcer of Disease Recurre [facility] left foot left foot 00:00: [facility] 00 Center SANJUANA (acute SANJUANA (acute Disease [...] Pati kes athy athy 00:00: Medical 00 [place] Peripheral Peripheral Disease Active [facility] neuropathy neuropathy 7-16 Pati kes 00:00: Medical 00 [place] Cyclic Cyclic Disease Active [facility] vomiting [...] l FAILURE 00:00: Vin Active 00 07/23/2016 [facility] [place] [facility] CONGESTION CONGESTIO Diagnosis Active 2016-07-24 Memoria AMD N AMD 2 01:49:00 l DIARRHEA DIARRHEA 00:00: Jake gonzalez Active 00 07/23/2016 [facility] SOB/SWELLI SOB/SWELL Diagnosis Active 2015-062016-06-10 Blasoria NG ING Active 08-11 15:48:00 l 06/10/2016 00:00: Jake gonzalez [address] CHF/RENAL CHF/RENAL Diagnosis Active 2015-062016-06-24 Memoria DISEASE DISEASE 08-11 15:35:00 l Active 00:00: Vin 06/10/2016 00 [facility] [place] [facility] Congestive Congestive Disease Active 2015-06 U T heart heart 08-11 Health failure failure 00:00: (CHF) (CHF) 00 Obesity Obesity Disease Active 2015-06 Univers (BMI (BMI 0-12 ity of 30-39.9) 30-39.9) 00:00: [place] [id number] Medical Branch Hyperosmol Hyperosmol Disease Active 2015-06 U viviana ar ar 0-12 ity of non-ketoti non-ketoti [place] in c state in 00 Me dical patient patient Branch with 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 Hyperglyce Hyperglyce Disease Active 2015-06 U viviana maryam maryam 0-11 ity of 00:00: [place] 00 Medical Branch Diabetic Diabetic Disease Active Unive rs ulcer of ulcer of 5-07 ity of both feet both feet 00:00: Amisha lombardo associated associated 00 Me dical with type with type Bran ch 2 diabetes 2 diabetes mellitus mellitus SANJUANA (acute SANJUANA (acute Disease Active U viviana kidney kidney 5-07 ity of injury) injury) 00:00: [place] [facility] Depression Depression Disease Active U jessicaers 5-07 ity of 00:00: [place] [facility] Bipolar 1 Bipolar 1 Disease Active Uni vers disorder disorder 5-07 ity of 00:00: [place] [facility] Suicidal Suicidal Disease Active Unive rs ideation ideation 5-05 ity of 00:00: [place] [facility] 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, 1.5, 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 00 Medical Branch Hematuria, Hematuria, Disease Active U viviana undiagnose undiagnose 2-16 it y of d cause d cause 00:00: [place] 00 Medical Branch Cystitis Cystitis Disease Active 2014-06 Unive rs with with 1-17 ity of hematuria hematuria 00:00: Amisha lombardo 00 Medical Branch Essential Essential Disease Active [...] viviana ea ea 1-13 ity of 00:00: [place] 00 Medical Branch History of History of Disease Active 2014-06 U viviana tubal tubal 1-13 ity of ligation ligation 00:00: [place] 00 Medical Branch Excessive Excessive Disease Active 2014-06 Uni vers or or 1-13 ity of frequent frequent 00:00: [place] menstruati menstruati 00 Me dical on on Branch Tobacco Tobacco Disease Active 2014-06 Univers use use 1-13 ity of disorder disorder 00:00: [address] Branch ABDOMINAL ABDOMINAL Diagnosis Active 2014-06-26 Memoria PAIN, PAIN, 06-26 05:44:00 l SEIZURES SEIZURES 00:00: Jake n Active 00 06/26/2013 [facility] [place] [facility] ABD PAIN ABD PAIN Diagnosis Active 2012-062013-04-19 Memoria Active 0 21:51:00 l 04/14/2013 19:00: Jake gonzalez [address] GASTROPERI GASTROPER Diagnosis Active 2012-09-13 Memoria SIS DAISY 2-12 15:17:00 l Active 00:00: Vin 08/02/2012 00 [facility] ABDOMINAL ABDOMINAL Diagnosis Active 2012-03-14 Memoria PAIN PAIN 03-14 16:56:00 l Active 14:00: Vin 03/14/2012 00 [facility] NAUSEA, NAUSEA, Diagnosis Active 2012-03-14 Memoria VOMITING VOMITING 03-14 13:25:00 l Active 08:00: Vin 03/14/2012 00 [facility] N/V N/V Diagnosis Active 2011-12-08 Mem oria INABILITY INABILITY 11-27 11:14:00 l TO TO 00:00: Vin TOLERATE TOLERATE 00 PO PO Active 11/28/2011 [facility] VOMITTING VOMITTING Diagnosis Active 2011-11-28 Memoria Active 11-27 16:28:00 l 11/28/2011 00:00: Jake gonzalez [address] VOMITTING, VOMITTING Diagnosis Active 2011-09-18 Memoria HIGH BLOOD , HIGH 09-17 09:45:00 l SUGAR BLOOD 00:00: [place] SUGAR 00 Active 09/18/2011 [facility] Methicilli Methicill Problem Active 2021-01-31 Memoria n in 08-31 22:29:25 l resistant resistant 00:00: Herm naeem Staphyloco Staphyloco 00 ccus ccus aureus aureus (organism) (organism) Active 09/01/2011 Problem 01/31/2021 09/01/11 - Elbow wound
Problem added by Discern Expert. [facility] MRSA MRSA Problem Active 2012-03-16 Memor ia Active 08-31 09:11:30 l 09/01/2011 00:00: Jake gonzalez Problem 00 03/16/2012 <sup>1</oliveros p>09/01/11 - Elbow wound
<sup>2< /sup>Probl em added by Discern Expert. [facility] VOMITING, VOMITING, Diagnosis Active 2011-09-01 Memoria BLOOD BLOOD 08-30 03:19:00 l SUGAR SUGAR 00:00: Vin READINGS READINGS 00 HIGH HIGH Active 08/31/2011 [facility] ELBOW ELBOW Diagnosis Active 2011-09-10 Mem oria ABSCESS/HY ABSCESS/HY 08-30 16:26:00 l PERGLYCEMI PERGLYCEMI 00:00: He ally A A Active 00 08/31/2011 [facility] Hypokalemi Hypokalem Problem Active 2012-03-16 Memoria a ia Active 08-22 09:11:30 l 08/23/2011 00:00: Jake gonzalez Problem 00 03/16/2012 [facility] DKA DKA Diagnosis Active 2011-08-24 Mem oria Active 11:27:00 l 08/19/2011 00:00: Jake gonzalez [address] VOMITING VOMITING Diagnosis Active 2011-08-19 Memoria Active 16:21:00 l 08/19/2011 00:00: Jake gonzalez [address] Final: Final: Problem 2016-08-02 Mem oria Acute Acute 02:46:22 l respirator respirator He ally y failure, y failure, unspecifie unspecifie d whether d whether with with hypoxia or hypoxia or hypercapni hypercapni a a 08/02/2016 [facility] Hypoglycem Hypoglyce Problem Inactiv 2012-03-16 Memoria ia maryam e 09:11:30 l Inactive [place] Problem 03/16/2012 [facility] Hypoglycem Hypoglyce Problem Inactiv 2013-04-22 Memoria ia maryam e 04:46:33 l (disorder) (disorder) He rmann Inactive Problem 04/22/2013 [facility] Gastropare Gastropar Problem Resolve 2021-01-31 Memoria sis esis d 22:29:25 l (disorder) (disorder) He rmann Resolved Problem 01/31/2021 [facility] Hypertensi Hypertens Problem Resolve 2021-01-31 Memoria ve montse d 22:29:25 l disorder, disorder, Herm naeem systemic systemic arterial arterial (disorder) (disorder) Resolved Problem 01/31/2021 [facility] Psychiatri Psychiatr Problem Resolve 2021-01-31 Memoria c ic d 22:29:25 l behavioral behavioral He ally disability disability (finding) (finding) Resolved Problem 01/31/2021 [facility] Seizure Seizure Problem Resolve 2021-01-31 M emoria (finding) (finding) d 22:29:25 l Resolved [place] Problem 01/31/2021 [facility] Hypertensi Hypertens Problem Active 2012-03-16 Memoria on ion Active 09:11:30 l Problem [place] 03/16/2012 [facility] Hypomagnes Hypomagne Problem Active 2013-04-22 Memoria emia semia 04:46:33 l Active Vin Problem 04/22/2013 [facility] Nausea and Nausea Problem Active 2012-03-16 Memoria vomiting and 09:11:30 l vomiting [place] Active Problem 03/16/2012 [facility] ENCNTR FOR ENCNTR Diagnosis Active 2020-12-24 Memoria GENERAL FOR 10:39:00 l ADULT GENERAL [place] MEDICAL ADULT EXAM W/ MEDICAL EXAM W/ Active [facility] DMI DMI Diagnosis Active 2011-08-24 Mem oria KETOACD KETOACD 11:27:00 l UNCONTROLD UNCONTROLD He rmann Active [facility] OTHER OTHER Diagnosis Active 2011-09-10 Mem oria GENERAL GENERAL 16:26:00 l SYMPTOMS SYMPTOMS Jake n Active [facility] HEART HEART Diagnosis Active 2016-06-24 Me moria FAILURE, FAILURE, 15:35:00 l UNSPECIFIE UNSPECIFIE He rmann D D Active [facility] ACUTE ACUTE Diagnosis Active 2016-09-09 Mem oria RESPIRATOR RESPIRATOR 09:11:00 l Y FAILURE, Y FAILURE, He rmann UNSP W UNSP W HYPOXI HYPOXI Active [facility] Nausea and Nausea Problem Resolve 2021-01-31 2021-01-31 Memoria vomiting and d 6-10 22:29:25 22:29:25 l (disorder) vomiting 00:00: Herm naeem (disorder) 00 Resolved 11/29/2011 Problem 01/31/2021 [facility] Hypokalemi Hypokalem Problem Resolve 2021-01-31 2021-01-31 Memoria a ia d 08-22 22:29:25 22:29:25 l (disorder) (disorder) 00:00: Tyrel canales Resolved 00 08/23/2011 Problem 01/31/2021 [facility] Disorder Disorder Problem Resolve 2021-01-31 2021-01-31 Memoria of of d 08-22 22:29:25 22:29:25 l magnesium magnesium 00:00: [place] naeem metabolism metabolism 00 (disorder) (disorder) Resolved 08/23/2011 Problem 01/31/2021 [facility] Hyperglyce Hyperglyc Problem Resolve 2021-01-31 2021-01-31 Memoria maryam emia d 08-19 22:29:25 22:29:25 l (disorder) (disorder) 00:00: Tyrel canales Resolved 00 08/20/2011 Problem 01/31/2021 [facility] Ketoacidos Ketoacido Problem Resolve 2021-01-31 2021-01-31 Memoria is in sis in d 22:29:25 22:29:25 l diabetes diabetes 00:00: Jake n mellitus mellitus 00 (disorder) (disorder) Resolved 08/19/2011 Problem 01/31/2021 [facility] DKA DKA Problem Resolve 2013-04-22 2013-04-22 Memoria (diabetic (diabetic d 04:46:33 04:46:33 l ketoacidos ketoacidos 00:00: Tyrel canales es) es) 00 Resolved 08/19/2011 Problem 04/22/2013 [facility] History of Past Illness Condition Condition Condition Status Onset Resolution Last Treating Co mments Source Name Details Category Date Date Treatment Clinician Date Discharge Discharge Problem 2014-06-28 2014-06-28 Memoria Diagnosis: Diagnosis: 06-26 16:34:37 16:34:37 l Gastropare Gastropare 06:00: Tyrel canales sis sis 00 06/26/2014 06/28/2014 [facility] Hyperglyce Hyperglyc Problem Inactiv 2012-03-16 2012-03-16 Memmarin live e 3- 09:11:30 09:11:30 l Inactive 00:00: Vin 08/20/2011 00 Problem 03/16/2012 [facility] [place] [facility] Allergies, Adverse Reactions, Alerts Allergy Allergy [...] to drug Cephalex Propensi Active Hives 2017- Method i in ty to 7- st adverse 00:00: Hospita reaction 00 l s to drug Cephalex Propensi Active Hives 2017- Univer s in ty to 01-18 ity of adverse 00:00: [place] reaction 00 Medical s Branch CEPHALEX DRUG Active Hives 2017- Univers IN INGREDI 01-18 ity of 00:00: [place] 00 Medical Branch Cephalex Allergy Active Hives 2017- [place] in [...] ANTOIN 01-03 MONOHYD/ 00:00: M-CRYST 00 Nitrofur Propensi Active Other (See Other [...] GUAIFENE Allergy Active Other [facility] Nitrofur Allergy [...] C INGREDI 6-25 ity of TROMETHA 00:00: [place] MINE 00 Medical Branch Ketorola Allergy Active [...] s Branch LISINOPR DRUG Active Other-Cmnt 2015-06 [facility] ers [place] INGREDI 0 ity of 00:00: [facility] TARTRATE INGREDI 06-23 ity of 00:00: [...] Comments) , Other - See commentsn [facility] bnessnumb nessnumbn essnumbne ssnumbnes s Prolex Propensi [...] (See Comments) , Other - See commentsn ericliana PROLEX DRUG Active Other-Cmnt Univer s 12-30 ity of 00:00: [place] 00 Medical Branch Penicill Allergy Active Shortness of 2010-06 Other U T ins to breath 2-27 reaction( Health substanc 00:00: s): e HivesAirw ay closure Penicill [...] 00 Medical Branch penicill Drug Active [facility] lisinopr Drug Active [facility] Ambien Drug Active [facility] Prolixin Drug Active [facility] penicill Drug Active [facility] lisinopr Drug Active [facility] Ambien Drug Active [facility] Prolixin Drug Active [facility] Tape Other Active [facility] penicill Drug Active [facility] lisinopr Drug Active [facility] Ambien Drug Active [facility] Prolixin Drug Active [facility] codeine Drug Active [facility] penicill Drug Active [facility] lisinopr Drug Active [facility] Ambien Drug Active [facility] Prolixin Drug Active [facility] codeine Drug Active [facility] penicill Drug [facility] lisinopr Drug [facility] Ambien Drug Active [facility] Prolixin Drug Active [facility] penicill Drug [facility] lisinopr Drug Active [facility] Ambien Drug Active [facility] Prolixin Drug Active [facility] penicill Drug [facility] lisinopr Drug Active [facility] Ambien Drug Active [facility] Prolixin Drug Active [facility] penicill penicill Active Memori a ins ins l [place] codeine codeine Active Memoria l Vin morphine morphine Active Memori a l Vin lisinopr lisinopr Active Memori a il il l Vin Adhesive Adhesive Active Memori a Tape Tape l Vin Ambien Ambien Active Memoria l [place] Prolex Prolex Active Memoria DM DM l Vin Social History Social Habit Start Date Stop Date Quantity Comments Source Gender identity Religion Hospital History of tobacco Cigarette Smoker Religion use Hospital Exposure to Yes Religion SARS-CoV-2 (event) Hospit al Sexual orientation Method ist Hospital History of Social 2021-06-18 2021-06-[address] function 00:00:00 00:00:00 Hospital Tobacco use and 2021-05-14 2021-05-14 Smokeless Religion exposure 00:00:00 00:00:00 tobacco non-user Hospital Social History 2020-12-24 2020-12-24 [facility] fatou 15:49:37 15:49:37 Alcohol intake 2017-12-17 2017-12-[address] [facility] 00:[facility]00 00:00:00 non-drinker of Medical Ce nter alcohol (finding) Cigarettes smoked 2017-01-03 2017-01-[address] [facility] current (pack per 00:00:00 00:00:00 Medical Center day) - Reported Cigarette 2017-01-03 2017-01-03 MINERVA Paul pack-years 00:00:00 00:00:00 [facility] Center Tobacco Comment 2017-01-03 2017-01-03 patient stated MINERVA Hsieh 00:00:00 00:00:00 she stopped [address] month ago. Sex Ass[birth year] At [birth year] MINERVA Kevins 00:00:00 00:00:00 [facility] Center Smoking Status Start Date Stop Date Source Smokes tobacco daily 2021-05-14 00:00:00 [facility] Former smoker 2020-06-27 00:00:00 2020-06-27 00:00:00 [facility] Medications Ordered Filled Start Stop Current Ordering Indication Dosage Frequency Signature Comments Components Source Medication Medication Date Date Medication? Clinician (SIG) Name Name calcium Yes 1334mg Q.[id number] Take 1,334 Methodi acetate,domingo 1-18 [id number] mg by s t sphat bind, 13:02: 3D mouth 3 Hos whit (Phoslyra) 39 (three) l 667 mg (169 times a mg day. calcium)/5 mL solution cyproheptad Yes 4mg Q.[id number] Take 4 mg Methodi ine 1-18 [id number] by mouth 3 [address] (PERIACTIN) 13:02: 3D (three) Hos whit 4 mg tablet 39 times a l day as needed for allergies. buPROPion Yes 300mg QD Take 300 Met hodi XL 1-[address] (WELLBUTRIN 13:02: mouth Hospi ta XL) 300 MG 39 daily. l 24 hr tablet ascorbic 0 Yes 500mg Q.[id number] Take 500 Methodi acid, 1-[id number] vitamin C, 13:02: 3D [...] jo-ann 39 l calcium 2021-0 Yes 667mg Q.[id number] Take 667 Methodi acetate 1-[id number] (PHOSLO) 13:02: 3D mouth [...] 39 nightly. l calcium 2021-0 Yes 1334mg Q.[id number] Take 1,334 Methodi acetate,domingo 1-18 [id number] mg by s t sphat bind, 13:02: 3D mouth 3 Hos whit (Phoslyra) 39 (three) l 667 mg (169 times a mg day. calcium)/5 mL solution cyproheptad 2021-0 Yes 4mg Q.25276775 Take 4 mg Methodi ine 1-18 [id number] by mouth [address] (PERIACTIN) 13:02: 3D (three) Hos whit 4 mg tablet 39 times a l day as needed for allergies. buPROPion 2021-0 Yes 300mg QD Take 300 Met hodi XL 1-[address] (WELLBUTRIN 13:02: mouth Hospi ta XL) 300 MG 39 daily. l 24 hr tablet ascorbic 2021-0 Yes 500mg Q.70888364 Take 500 Methodi acid, 1-[address] vitamin C, 13:02: 3D [...] jo-ann 39 l calcium 2021-0 Yes 667mg Q.32429654 Take 667 Methodi acetate 1-[address] (PHOSLO) 13:02: 3D mouth [...] 39 nightly. l calcium 2021-0 Yes 1334mg Q.07681368 Take 1,334 Methodi acetate,domingo 1-18 0205479788 mg by s t sphat bind, 13:02: 3D mouth 3 Hos whit (Phoslyra) 39 (three) l 667 mg (169 times a mg day. calcium)/5 mL solution cyproheptad 2021-0 Yes 4mg Q.30357165 Take 4 mg Methodi ine 1-18 [id number] by mouth [address] (PERIACTIN) 13:02: 3D (three) Hos whit 4 mg tablet 39 times a l day as needed for allergies. buPROPion 2021-0 Yes 300mg QD Take 300 Met hodi XL 1-[address] (WELLBUTRIN 13:02: mouth Hospi ta XL) 300 MG 39 daily. l 24 hr tablet ascorbic 2021-0 Yes 500mg Q.77559199 Take 500 Methodi acid, 1-[address] vitamin C, 13:02: 3D [...] jo-ann 39 l calcium 2021-0 Yes 667mg Q.53578335 Take 667 Methodi acetate 1-[address] (PHOSLO) 13:02: 3D mouth [...] 39 nightly. l calcium 2-0 Yes 1334mg Q.89904924 Take 1,334 Methodi acetate,domingo 1-18 5379408801 mg by s t sphat bind, 13:02: 3D mouth 3 Hos whit (Phoslyra) 39 (three) l 667 mg (169 times a mg day. calcium)/5 mL solution cyproheptad 2021-0 Yes 4mg Q.18100661 Take 4 mg Methodi ine 1-18 [id number] by mouth [address] (PERIACTIN) 13:02: 3D (three) Hos whit 4 mg tablet 39 times a l day as needed for allergies. buPROPion 2021-0 Yes 300mg QD Take 300 Met hodi XL 1-[address] (WELLBUTRIN 13:02: mouth Hospi ta XL) 300 MG 39 daily. l 24 hr tablet ascorbic 2021-0 Yes 500mg Q.47589062 Take 500 Methodi acid, 1-[address] vitamin C, 13:02: 3D [...] jo-ann 39 l calcium 2021-0 Yes 667mg Q.38999468 Take 667 Methodi acetate 1-[address] (PHOSLO) 13:02: 3D mouth [...] 39 nightly. l calcium 2021-0 Yes 1334mg Q.90679399 Take 1,334 Methodi acetate,domingo 1-18 [id number] mg by s t sphat bind, 13:02: 3D mouth 3 Hos whit (Phoslyra) 39 (three) l 667 mg (169 times a mg day. calcium)/5 mL solution cyproheptad 2021-0 Yes 4mg Q.11508488 Take 4 mg Methodi ine 1-18 [id number] [address] mouth [address] (PERIACTIN) 13:02: 3D (three) Hos whit 4 mg tablet 39 times a l day as needed for allergies. buPROPion 2021-0 Yes 300mg QD Take 300 Met hodi XL 1-[address] (WELLBUTRIN 13:02: mouth Hospi ta XL) 300 MG 39 daily. l 24 hr tablet ascorbic 2021-0 Yes 500mg Q.92137991 Take 500 Methodi acid, 1-[address] vitamin C, 13:02: 3D [...] jo-ann 39 l calcium 2021-0 Yes 667mg Q.72011379 Take 667 Methodi acetate 1-[address] (PHOSLO) 13:02: 3D mouth [...] 39 nightly. l calcium 2021-0 Yes 1334mg Q.62262414 Take 1,334 Methodi acetate,domingo 1-18 [id number] mg by s t sphat bind, 13:02: 3D mouth 3 Hos whit (Phoslyra) 39 (three) l 667 mg (169 times a mg day. calcium)/5 mL solution cyproheptad 2021-0 Yes 4mg Q.22868297 Take 4 mg Methodi ine 1-18 [id number] [address] mouth [address] (PERIACTIN) 13:02: 3D (three) Hos whit 4 mg tablet 39 times a l day as needed for allergies. buPROPion 2021-0 Yes 300mg QD Take 300 Met hodi XL 1-[address] (WELLBUTRIN 13:02: mouth Hospi ta XL) 300 MG 39 daily. l 24 hr tablet ascorbic 2022-0 Yes 500mg Q.86857478 Take 500 Methodi acid, 1-[address] vitamin C, 13:02: 3D [...] jo-ann 39 l calcium 2022-0 Yes 667mg Q.20894304 Take 667 Methodi acetate 1-[id number] (PHOSLO) 13:02: 3D mouth [...] 39 nightly. l calcium 2021-0 Yes 1334mg Q.01765919 Take 1,334 Methodi acetate,domnigo 1-18 [id number] mg by s t sphat bind, 13:02: 3D mouth 3 Hos whit (Phoslyra) 39 (three) l 667 mg (169 times a mg day. calcium)/5 mL solution cyproheptad 2021-0 Yes 4mg Q.09053427 Take 4 mg Methodi ine 1-18 [id number] [address] mouth [address] (PERIACTIN) 13:02: 3D (three) Hos whit 4 mg tablet 39 times a l day as needed for allergies. buPROPion 2021-0 Yes 300mg QD Take 300 Met hodi XL 1-[address] (WELLBUTRIN 13:02: mouth Hospi ta XL) 300 MG 39 daily. l 24 hr tablet ascorbic 2021-0 Yes 500mg Q.23711106 Take 500 Methodi acid, 1-[address] vitamin C, 13:02: 3D [...] jo-ann 39 l calcium 2021-0 Yes 667mg Q.[id number] Take 667 Methodi acetate 1-[id number] (PHOSLO) 13:02: 3D mouth [...] mouth st MG tablet 13:02: nightly. Hosp j-oann 39 l cholecalcif 202-0 Yes 5000U Take [...] 39 nightly. l calcium 0 Yes 1334mg Q.07433412 Take 1,334 Methodi acetate,domingo 1-18 [id number] mg by s t sphat bind, 13:02: 3D mouth 3 Hos whit (Phoslyra) 39 (three) l 667 mg (169 times a mg day. calcium)/5 mL solution cyproheptad 0 Yes 4mg Q.35401037 Take 4 mg Methodi ine 1-18 [id number] [address] mouth [address] (PERIACTIN) 13:02: 3D (three) Hos whit 4 mg tablet 39 times a l day as needed for allergies. buPROPion 0 Yes 300mg QD Take 300 Met hodi XL 1-[address] (WELLBUTRIN 13:02: mouth Hospi ta XL) 300 MG 39 daily. l 24 hr tablet ascorbic 2021-0 Yes 500mg Q.87799610 Take 500 Methodi acid, 1-[id number] vitamin C, 13:02: 3D [...] jo-ann 39 l calcium 2022-0 Yes 667mg Q.45044155 Take 667 Methodi acetate 1-[id number] (PHOSLO) 13:02: 3D mouth [...] 39 nightly. l calcium 2021-0 Yes 1334mg Q.15183252 Take 1,334 Methodi acetate,domingo 1-18 [id number] mg by s t sphat bind, 13:02: 3D mouth 3 Hos whit (Phoslyra) 39 (three) l 667 mg (169 times a mg day. calcium)/5 mL solution cyproheptad 2021-0 Yes 4mg Q.55079058 Take 4 mg Methodi ine 1-18 [id number] [address] mouth [address] (PERIACTIN) 13:02: 3D (three) Hos whit 4 mg tablet 39 times a l day as needed for allergies. buPROPion 2021-0 Yes 300mg QD Take 300 Met hodi XL 1-[address] (WELLBUTRIN 13:02: mouth Hospi ta XL) 300 MG 39 daily. l 24 hr tablet ascorbic 2021-0 Yes 500mg Q.37479090 Take 500 Methodi acid, 1-[id number] vitamin C, 13:02: 3D [...] jo-ann 39 l calcium 2022-0 Yes 667mg Q.97615450 Take 667 Methodi acetate 1-[id number] (PHOSLO) 13:02: 3D mouth [...] 39 nightly. l calcium 2021-0 Yes 1334mg Q.52527269 Take 1,334 Methodi acetate,domingo 1-18 [id number] mg by s t sphat bind, 13:02: 3D mouth 3 Hos whit (Phoslyra) 39 (three) l 667 mg (169 times a mg day. calcium)/5 mL solution cyproheptad 0 Yes 4mg Q.73022282 Take 4 mg Methodi ine 1-18 [id number] [address] mouth [address] (PERIACTIN) 13:02: 3D (three) Hos whit 4 mg tablet 39 times a l day as needed for allergies. buPROPion 0 Yes 300mg QD Take 300 Met hodi XL 1-[address] (WELLBUTRIN 13:02: mouth Hospi ta XL) 300 MG 39 daily. l 24 hr tablet ascorbic 0 Yes 500mg Q.84053402 Take 500 Methodi acid, 1-[address] vitamin C, 13:02: 3D [...] jo-ann 39 l calcium 2021-0 Yes 667mg Q.44289499 Take 667 Methodi acetate 1-[id number] (PHOSLO) 13:02: 3D mouth [...] 39 nightly. l calcium 2021-0 Yes 1334mg Q.[id number] Take 1,334 Methodi acetate,domingo 1-18 [id number] mg by s t sphat bind, 13:02: 3D mouth 3 Hos whit (Phoslyra) 39 (three) l 667 mg (169 times a mg day. calcium)/5 mL solution cyproheptad 2-0 Yes 4mg Q.46097187 Take 4 mg Methodi ine 1-18 [id number] [address] mouth [address] (PERIACTIN) 13:02: 3D (three) Hos whit 4 mg tablet 39 times a l day as needed for allergies. buPROPion 2022-0 Yes 300mg QD Take 300 Met hodi XL 1-[address] (WELLBUTRIN 13:02: mouth Hospi ta XL) 300 MG 39 daily. l 24 hr tablet ascorbic 2021-0 Yes 500mg Q.73191204 Take 500 Methodi acid, 1-[address] vitamin C, 13:02: 3D [...] jo-ann 39 l calcium 2021-0 Yes 667mg Q.42187527 Take 667 Methodi acetate 1-[id number] (PHOSLO) 13:02: 3D mouth [...] 39 nightly. l calcium 2021-0 Yes 1334mg Q.22986709 Take 1,334 Methodi acetate,domingo 1-18 [id number] mg by s t sphat bind, 13:02: 3D mouth 3 Hos whit (Phoslyra) 39 (three) l 667 mg (169 times a mg day. calcium)/5 mL solution cyproheptad 2021-0 Yes 4mg Q.27865980 Take 4 mg Methodi ine 1-18 [id number] [address] mouth [address] (PERIACTIN) 13:02: 3D (three) Hos whit 4 mg tablet 39 times a l day as needed for allergies. buPROPion 2021-0 Yes 300mg QD Take 300 Met hodi XL 1-[address] (WELLBUTRIN 13:02: mouth Hospi ta XL) 300 MG 39 daily. l 24 hr tablet ascorbic 2021-0 Yes 500mg Q.97282815 Take 500 Methodi acid, 1-[id number] vitamin C, 13:02: 3D [...] jo-ann 39 l calcium 2021-0 Yes 667mg Q.17634874 Take 667 Methodi acetate 1-[id number] (PHOSLO) 13:02: 3D mouth [...] 39 nightly. l calcium 2021-0 Yes 1334mg Q.85614809 Take 1,334 Methodi acetate,domingo 1-18 [id number] mg by s t sphat bind, 13:02: 3D mouth 3 Hos whit (Phoslyra) 39 (three) l 667 mg (169 times a mg day. calcium)/5 mL solution cyproheptad 2021-0 Yes 4mg Q.[id number] Take 4 mg Methodi ine 1-18 [id number] [address] mouth [address] (PERIACTIN) 13:02: 3D (three) Hos whit 4 mg tablet 39 times a l day as needed for allergies. buPROPion 2021-0 Yes 300mg QD Take 300 Met hodi XL 1-[address] (WELLBUTRIN 13:02: mouth Hospi ta XL) 300 MG 39 daily. l 24 hr tablet ascorbic 2022-0 Yes 500mg Q.[id number] Take 500 Methodi acid, 1-[id number] vitamin C, 13:02: 3D [...] jo-ann 39 l calcium 2-0 Yes 667mg Q.46437366 Take 667 Methodi acetate 1-[id number] (PHOSLO) 13:02: 3D mouth [...] 39 nightly. l calcium 0 Yes 1334mg Q.30174558 Take 1,334 Methodi acetate,domingo 1-18 [id number] mg by s t sphat bind, 13:02: 3D mouth 3 Hos whit (Phoslyra) 39 (three) l 667 mg (169 times a mg day. calcium)/5 mL solution cyproheptad 0 Yes 4mg Q.86060597 Take 4 mg Methodi ine -18 [id number] [address] (PERIACTIN) 13:02: 3D (three) Hos whit 4 mg tablet 39 times a l day as needed for allergies. buPROPion 0 Yes 300mg QD Take 300 Met hodi XL 1-[address] (WELLBUTRIN 13:02: mouth Hospi ta XL) 300 MG 39 daily. l 24 hr tablet ascorbic 2021-0 Yes 500mg Q.74978977 Take 500 Methodi acid, 1-[id number] vitamin C, 13:02: 3D [...] jo-ann 39 l calcium 2021-0 Yes 667mg Q.01607865 Take 667 Methodi acetate 1-[id number] (PHOSLO) 13:02: 3D mouth [...] 39 nightly. l calcium 2021-0 Yes 1334mg Q.56947762 Take 1,334 Methodi acetate,domingo 1-18 [id number] mg by s t sphat bind, 13:02: 3D mouth 3 Hos whit (Phoslyra) 39 (three) l 667 mg (169 times a mg day. calcium)/5 mL solution cyproheptad 2021-0 Yes 4mg Q.72948006 Take 4 mg Methodi ine 1-18 [id number] [address] mouth [address] (PERIACTIN) 13:02: 3D (three) Hos whit 4 mg tablet 39 times a l day as needed for allergies. buPROPion 2021-0 Yes 300mg QD Take 300 Met hodi XL 1-[address] (WELLBUTRIN 13:02: mouth Hospi ta XL) 300 MG 39 daily. l 24 hr tablet ascorbic 2021-0 Yes 500mg Q.61288718 Take 500 Methodi acid, 1-[id number] vitamin C, 13:02: 3D [...] jo-ann 39 l calcium 2022-0 Yes 667mg Q.54423189 Take 667 Methodi acetate 1-[id number] (PHOSLO) 13:02: 3D mouth [...] 39 nightly. l calcium 2021-0 Yes 1334mg Q.13494533 Take 1,334 Methodi acetate,domingo 1-18 [id number] mg by s t sphat bind, 13:02: 3D mouth 3 Hos whit (Phoslyra) 39 (three) l 667 mg (169 times a mg day. calcium)/5 mL solution cyproheptad 2021-0 Yes 4mg Q.84447088 Take 4 mg Methodi ine 1-18 [id number] [address] mouth [address] (PERIACTIN) 13:02: 3D (three) Hos whit 4 mg tablet 39 times a l day as needed for allergies. buPROPion 2021-0 Yes 300mg QD Take 300 Met hodi XL 1-[address] (WELLBUTRIN 13:02: mouth Hospi ta XL) 300 MG 39 daily. l 24 hr tablet ascorbic 2021-0 Yes 500mg Q.40665093 Take 500 Methodi acid, 1-[id number] vitamin C, 13:02: 3D [...] jo-ann 39 l calcium 2022-0 Yes 667mg Q.51888665 Take 667 Methodi acetate 1-[id number] (PHOSLO) 13:02: 3D mouth [...] 39 nightly. l calcium 2021-0 Yes 1334mg Q.82422483 Take 1,334 Methodi acetate,domingo 1-18 [id number] mg by s t sphat bind, 13:02: 3D mouth 3 Hos whit (Phoslyra) 39 (three) l 667 mg (169 times a mg day. calcium)/5 mL solution cyproheptad 2021-0 Yes 4mg Q.33204483 Take 4 mg Methodi ine 1-18 [id number] [address] mouth [address] (PERIACTIN) 13:02: 3D (three) Hos whit 4 mg tablet 39 times a l day as needed for allergies. buPROPion 2021-0 Yes 300mg QD Take 300 Met hodi XL 1-[address] (WELLBUTRIN 13:02: mouth Hospi ta XL) 300 MG 39 daily. l 24 hr tablet ascorbic 2021-0 Yes 500mg Q.04739616 Take 500 Methodi acid, 1-[id number] vitamin C, 13:02: 3D [...] jo-ann 39 l calcium 2021-0 Yes 667mg Q.87643553 Take 667 Methodi acetate 1-[id number] (PHOSLO) 13:02: 3D mouth [...] 39 nightly. l calcium 2022-0 Yes 1334mg Q.56393549 Take 1,334 Methodi acetate,domingo 1-18 [id number] mg by s t sphat bind, 13:02: 3D mouth 3 Hos whit (Phoslyra) 39 (three) l 667 mg (169 times a mg day. calcium)/5 mL solution cyproheptad 2021-0 Yes 4mg Q.44992506 Take 4 mg Methodi ine 1-18 [id number] [address] mouth [address] (PERIACTIN) 13:02: 3D (three) Hos whit 4 mg tablet 39 times a l day as needed for allergies. buPROPion 2021-0 Yes 300mg QD Take 300 Met hodi XL 1-[address] (WELLBUTRIN 13:02: mouth Hospi ta XL) 300 MG 39 daily. l 24 hr tablet ascorbic 2021-0 Yes 500mg Q.65500742 Take 500 Methodi acid, 1-[id number] vitamin C, 13:02: 3D [...] jo-ann 39 l calcium 2021-0 Yes 667mg Q.76012651 Take 667 Methodi acetate 1-[id number] (PHOSLO) 13:02: 3D mouth [...] 39 nightly. l calcium 2-0 Yes 1334mg Q.11425695 Take 1,334 Methodi acetate,domingo 1-18 [id number] mg by s t sphat bind, 13:02: 3D mouth 3 Hos whit (Phoslyra) 39 (three) l 667 mg (169 times a mg day. calcium)/5 mL solution cyproheptad 2-0 Yes 4mg Q.[id number] Take 4 mg Methodi ine 1-18 [id number] (PERIACTIN) 13:02: 3D (three) Hos whit 4 mg tablet 39 times a l day as needed for allergies. buPROPion 2021-0 Yes 300mg QD Take 300 Met hodi XL 1-[address] (WE[facility]BUTRIN 13:02: mouth Hospi ta XL) 300 MG 39 daily. l 24 hr tablet ascorbic 2021-0 Yes 500mg Q.98990220 Take 500 Methodi acid, 1-[id number] vitamin C, 13:02: 3D [...] jo-ann 39 l calcium 2021-0 Yes 667mg Q.29587521 Take 667 Methodi acetate 1-[id number] (PHOSLO) 13:02: 3D mouth [...] 39 nightly. l calcium 2021-0 Yes 1334mg Q.48340323 Take 1,334 Methodi acetate,domingo 1-18 [id number] mg by s t sphat bind, 13:02: 3D mouth 3 Hos whit (Phoslyra) 39 (three) l 667 mg (169 times a mg day. calcium)/5 mL solution cyproheptad 2021-0 Yes 4mg Q.67040272 Take 4 mg Methodi ine 1-[id number] (PERIACTIN) 13:02: 3D (three) Hos whit 4 mg tablet 39 times a l day as needed for allergies. buPROPion 2021-0 Yes 300mg QD Take 300 Met hodi XL 1-[address] (WELLBUTRIN 13:02: mouth Hospi ta XL) 300 MG 39 daily. l 24 hr tablet ascorbic 2022-0 Yes 500mg Q.06846837 Take 500 Methodi acid, 1-[id number] vitamin C, 13:02: 3D [...] jo-ann 39 l calcium 2021-0 Yes 667mg Q.93102513 Take 667 Methodi acetate 1-[id number] (PHOSLO) 13:02: 3D mouth [...] 39 nightly. l calcium 2021-0 Yes 1334mg Q.26793285 Take 1,334 Methodi acetate,domingo 1-18 [id number] mg by s t sphat bind, 13:02: 3D mouth 3 Hos whit (Phoslyra) 39 (three) l 667 mg (169 times a mg day. calcium)/5 mL solution cyproheptad 0 Yes 4mg Q.15588830 Take 4 mg Methodi ine 1-18 [id number] [address] (PERIACTIN) 13:02: 3D (three) Hos whit 4 mg tablet 39 times a l day as needed for allergies. buPROPion 2021-0 Yes 300mg QD Take 300 Met hodi XL 1-[address] (WELLBUTRIN 13:02: mouth Hospi ta XL) 300 MG 39 daily. l 24 hr tablet ascorbic 2021-0 Yes 500mg Q.76635550 Take 500 Methodi acid, 1-[id number] vitamin C, 13:02: 3D [...] jo-ann 39 l calcium 2022-0 Yes 667mg Q.08462096 Take 667 Methodi acetate 1-[id number] (PHOSLO) 13:02: 3D mouth [...] 39 nightly. l calcium 2021-0 Yes 1334mg Q.89652828 Take 1,334 Methodi acetate,domingo 1-18 [id number] mg by s t sphat bind, 13:02: 3D mouth 3 Hos whit (Phoslyra) 39 (three) l 667 mg (169 times a mg day. calcium)/5 mL solution cyproheptad 2021-0 Yes 4mg Q.10622714 Take 4 mg Methodi ine 1-18 [id number] [address] mouth [address] (PERIACTIN) 13:02: 3D (three) Hos whit 4 mg tablet 39 times a l day as needed for allergies. buPROPion 2021-0 Yes 300mg QD Take 300 Met hodi XL 1-[address] (WELLBUTRIN 13:02: mouth Hospi ta XL) 300 MG 39 daily. l 24 hr tablet ascorbic 2021-0 Yes 500mg Q.65268014 Take 500 Methodi acid, 1-[id number] vitamin C, 13:02: 3D [...] jo-ann 39 l calcium 2021-0 Yes 667mg Q.31568017 Take 667 Methodi acetate 1-[id number] (PHOSLO) 13:02: 3D mouth [...] 39 nightly. l calcium 2021-0 Yes 1334mg Q.27419289 Take 1,334 Methodi acetate,domingo 1-18 [id number] mg by s t sphat bind, 13:02: 3D mouth 3 Hos whit (Phoslyra) 39 (three) l 667 mg (169 times a mg day. calcium)/5 mL solution cyproheptad 2021-0 Yes 4mg Q.72489976 Take 4 mg Methodi ine 1-18 [id number] [address] mouth [address] (PERIACTIN) 13:02: 3D (three) Hos whit 4 mg tablet 39 times a l day as needed for allergies. buPROPion 2021-0 Yes 300mg QD Take 300 Met hodi XL 1-[address] (WELLBUTRIN 13:02: mouth Hospi ta XL) 300 MG 39 daily. l 24 hr tablet ascorbic 2021-0 Yes 500mg Q.47556171 Take 500 Methodi acid, 1-[id number] vitamin C, 13:02: 3D [...] jo-ann 39 l calcium 2-0 Yes 667mg Q.71587273 Take 667 Methodi acetate 1-[id number] (PHOSLO) 13:02: 3D mouth [...] 39 nightly. l calcium 2021-0 Yes 1334mg Q.76813670 Take 1,334 Methodi acetate,domingo 1-18 [id number] mg by s t sphat bind, 13:02: 3D mouth 3 Hos whit (Phoslyra) 39 (three) l 667 mg (169 times a mg day. calcium)/5 mL solution cyproheptad 2021-0 Yes 4mg Q.58975270 Take 4 mg Methodi ine 1-18 [id number] [address] mouth [address] (PERIACTIN) 13:02: 3D (three) Hos whit 4 mg tablet 39 times a l day as needed for allergies. buPROPion 2021-0 Yes 300mg QD Take 300 Met hodi XL 1-[address] (WELLBUTRIN 13:02: mouth Hospi ta XL) 300 MG 39 daily. l 24 hr tablet ascorbic 2021-0 Yes 500mg Q.[id number] Take 500 Methodi acid, 1-[id number] vitamin C, 13:02: 3D [...] jo-ann 39 l calcium 2021-0 Yes 667mg Q.98588974 Take 667 Methodi acetate 1-[id number] (PHOSLO) 13:02: 3D mouth [...] 39 nightly. l calcium 2-0 Yes 1334mg Q.22254047 Take 1,334 Methodi acetate,domingo 1-18 [id number] mg by s t sphat bind, 13:02: 3D mouth 3 Hos whit (Phoslyra) 39 (three) l 667 mg (169 times a mg day. calcium)/5 mL solution cyproheptad 2021-0 Yes 4mg Q.75704044 Take 4 mg Methodi ine 1-18 [id number] mouth [address] (PERIACTIN) 13:02: 3D (three) Hos whit 4 mg tablet 39 times a l day as needed for allergies. buPROPion 2021-0 Yes 300mg QD Take 300 Met hodi XL 1-[address] (WELLBUTRIN 13:02: mouth Hospi ta XL) 300 MG 39 daily. l 24 hr tablet ascorbic 2021-0 Yes 500mg Q.[id number] Take 500 Methodi acid, 1-[id number] vitamin C, 13:02: 3D [...] jo-ann 39 l calcium 2021-0 Yes 667mg Q.03452845 Take 667 Methodi acetate 1-[id number] (PHOSLO) 13:02: 3D mouth [...] 39 nightly. l calcium 2021-0 Yes 1334mg Q.44583808 Take 1,334 Methodi acetate,domingo 1-18 [id number] mg by s t sphat bind, 13:02: 3D mouth 3 Hos whit (Phoslyra) 39 (three) l 667 mg (169 times a mg day. calcium)/5 mL solution cyproheptad 2021-0 Yes 4mg Q.84762861 Take 4 mg Methodi ine 1-18 [id number] mouth [address] (PERIACTIN) 13:02: 3D (three) Hos whit 4 mg tablet 39 times a l day as needed for allergies. buPROPion 202-0 Yes 300mg QD Take 300 Met hodi XL 1-[address] (WE[facility]BUTRIN 13:02: mouth Hospi ta XL) 300 MG 39 daily. l 24 hr tablet ascorbic 2022-0 Yes 500mg Q.77164818 Take 500 Methodi acid, 1-[id number] vitamin C, 13:02: 3D [...] jo-ann 39 l calcium 2021-0 Yes 667mg Q.98733229 Take 667 Methodi acetate 1-[id number] (PHOSLO) 13:02: 3D mouth [...] 39 nightly. l calcium 2021-0 Yes 1334mg Q.66333622 Take 1,334 Methodi acetate,domingo 1-18 [id number] mg by s t sphat bind, 13:02: 3D mouth 3 Hos whit (Phoslyra) 39 (three) l 667 mg (169 times a mg day. calcium)/5 mL solution cyproheptad 2021-0 Yes 4mg Q.33320924 Take 4 mg Methodi ine 1-18 [id number] [address] mouth [address] (PERIACTIN) 13:02: 3D (three) Hos whit 4 mg tablet 39 times a l day as needed for allergies. buPROPion 2021-0 Yes 300mg QD Take 300 Met hodi XL 1-[address] (WELLBUTRIN 13:02: mouth Hospi ta XL) 300 MG 39 daily. l 24 hr tablet ascorbic 2-0 Yes 500mg Q.17190478 Take 500 Methodi acid, 1-[id number] vitamin C, 13:02: 3D [...] jo-ann 39 l calcium 2021-0 Yes 667mg Q.33464976 Take 667 Methodi acetate 1-[id number] (PHOSLO) 13:02: 3D mouth [...] 39 nightly. l calcium 0 Yes 1334mg Q.37222995 Take 1,334 Methodi acetate,domingo 1-18 [id number] mg by s t sphat bind, 13:02: 3D mouth 3 Hos whit (Phoslyra) 39 (three) l 667 mg (169 times a mg day. calcium)/5 mL solution cyproheptad 0 Yes 4mg Q.[id number] Take 4 mg Methodi ine 1-18 [id number] [address] mouth [address] (PERIACTIN) 13:02: 3D (three) Hos whit 4 mg tablet 39 times a l day as needed for allergies. buPROPion 0 Yes 300mg QD Take 300 Met hodi XL 1-[address] (WE[facility]BUTRIN 13:02: mouth Hospi ta XL) 300 MG 39 daily. l 24 hr tablet ascorbic 2021-0 Yes 500mg Q.[id number] Take 500 Methodi acid, 1-[id number] vitamin C, 13:02: 3D [...] jo-ann 39 l calcium 2021-0 Yes 667mg Q.39452961 Take 667 Methodi acetate 1-[id number] (PHOSLO) 13:02: 3D mouth [...] 39 nightly. l calcium 2-0 Yes 1334mg Q.09698609 Take 1,334 Methodi acetate,domingo 1-18 [id number] mg by s t sphat bind, 13:02: 3D mouth 3 Hos whit (Phoslyra) 39 (three) l 667 mg (169 times a mg day. calcium)/5 mL solution cyproheptad 2021-0 Yes 4mg Q.86409651 Take 4 mg Methodi ine 1-18 [id number] mouth [address] (PERIACTIN) 13:02: 3D (three) Hos whit 4 mg tablet 39 times a l day as needed for allergies. buPROPion 2021-0 Yes 300mg QD Take 300 Met hodi XL 1-[address] (WELLBUTRIN 13:02: mouth Hospi ta XL) 300 MG 39 daily. l 24 hr tablet ascorbic 2021-0 Yes 500mg Q.85023596 Take 500 Methodi acid, 1-[id number] vitamin C, 13:02: 3D [...] jo-ann 39 l calcium 2022-0 Yes 667mg Q.36080461 Take 667 Methodi acetate 1-[id number] (PHOSLO) 13:02: 3D mouth [...] 39 nightly. l calcium 2021-0 Yes 1334mg Q.27060278 Take 1,334 Methodi acetate,domingo 1-18 [id number] mg by s t sphat bind, 13:02: 3D mouth 3 Hos whit (Phoslyra) 39 (three) l 667 mg (169 times a mg day. calcium)/5 mL solution cyproheptad 2021-0 Yes 4mg Q.29954419 Take 4 mg Methodi ine 1-18 [id number] [address] mouth [address] (PERIACTIN) 13:02: 3D (three) Hos whit 4 mg tablet 39 times a l day as needed for allergies. buPROPion 2021-0 Yes 300mg QD Take 300 Met hodi XL 1-[address] (WELLBUTRIN 13:02: mouth Hospi ta XL) 300 MG 39 daily. l 24 hr tablet ascorbic 2021-0 Yes 500mg Q.85779887 Take 500 Methodi acid, 1-[id number] vitamin C, 13:02: 3D [...] jo-ann 39 l calcium 2022-0 Yes 667mg Q.53619683 Take 667 Methodi acetate 1-[id number] (PHOSLO) 13:02: 3D mouth [...] cholecalcif 2021-0 Yes 5000U Take 5,000 Methodi manis, 1-[address] vitamin D3, 13:02: [...] 39 nightly. l calcium 2021-0 Yes 1334mg Q.[id number] Take 1,334 Methodi acetate,domingo 1-18 [id number] mg by s t sphat bind, 13:02: 3D mouth 3 Hos whit (Phoslyra) 39 (three) l 667 mg (169 times a mg day. calcium)/5 mL solution cyproheptad 2021-0 Yes 4mg Q.[id number] Take 4 mg Methodi ine 1-18 [id number] [address] mouth [address] (PERIACTIN) 13:02: 3D (three) Hos whit 4 mg tablet 39 times a l day as needed for allergies. buPROPion 2021-0 Yes 300mg QD Take 300 Met hodi XL 1-[address] (WELLBUTRIN 13:02: mouth Hospi ta XL) 300 MG 39 daily. l 24 hr tablet ascorbic 2021-0 Yes 500mg Q.[id number] Take 500 Methodi acid, 1-[address] vitamin C, 13:02: 3D [...] jo-ann 39 l calcium 2021-0 Yes 667mg Q.24414810 Take 667 Methodi acetate 1-[address] (PHOSLO) 13:02: 3D mouth [...] 39 nightly. l calcium 2-0 Yes 1334mg Q.10354297 Take 1,334 Methodi acetate,domingo 1-18 [id number] mg by s t sphat bind, 13:02: 3D mouth 3 Hos whit (Phoslyra) 39 (three) l 667 mg (169 times a mg day. calcium)/5 mL solution cyproheptad 2021-0 Yes 4mg Q.[id number] Take 4 mg Methodi ine 1-18 [id number] [address] mouth [address] (PERIACTIN) 13:02: 3D (three) Hos whit 4 mg tablet 39 times a l day as needed for allergies. buPROPion 2021-0 Yes 300mg QD Take 300 Met hodi XL 1-[address] (WELLBUTRIN 13:02: mouth Hospi ta XL) 300 MG 39 daily. l 24 hr tablet ascorbic 2021-0 Yes 500mg Q.[id number] Take 500 [facility] acid, 1-[id number] vitamin C, 13:02: 3D [...] jo-ann 39 l calcium 2021-0 Yes 667mg Q.[id number] Take 667 [facility] acetate 1-[id number] (PHOSLO) 13:02: 3D mouth [...] 39 nightly. l calcium 2021-0 Yes 1334mg Q.19602533 Take 1,334 Methodi acetate,domingo 1-18 [id number] mg by s t sphat bind, 13:02: 3D mouth 3 Hos whit (Phoslyra) 39 (three) l 667 mg (169 times a mg day. calcium)/5 mL solution cyproheptad 2021-0 Yes 4mg Q.[id number] Take 4 mg Methodi ine 1-18 [id number] by mouth [address] (PERIACTIN) 13:02: 3D (three) Hos whit 4 mg tablet 39 times a l day as needed for allergies. buPROPion 2021-0 Yes 300mg QD Take 300 Met hodi XL 1-[address] (WELLBUTRIN 13:02: mouth Hospi ta XL) 300 MG 39 daily. l 24 hr tablet ascorbic 2022-0 Yes 500mg Q.09854768 Take 500 [facility] acid, 1-[id number] vitamin C, 13:02: 3D [...] jo-ann 39 l calcium 2021-0 Yes 667mg Q.35940715 Take 667 [facility] acetate 1-[id number] (PHOSLO) 13:02: 3D mouth [...] 39 nightly. l calcium 2021-0 Yes 1334mg Q.28213115 Take 1,334 Methodi acetate,domingo 1-18 [id number] mg by s t sphat bind, 13:02: 3D mouth 3 Hos whit (Phoslyra) 39 (three) l 667 mg (169 times a mg day. calcium)/5 mL solution cyproheptad 2021-0 Yes 4mg Q.96534589 Take 4 mg Methodi ine 1-18 [id number] by mouth [address] (PERIACTIN) 13:02: 3D (three) Hos whit 4 mg tablet 39 times a l day as needed for allergies. buPROPion 2021-0 Yes 300mg QD Take 300 Met hodi XL 1-[address] (WELLBUTRIN 13:02: mouth Hospi ta XL) 300 MG 39 daily. l 24 hr tablet ascorbic 2021-0 Yes 500mg Q.19866331 Take 500 [facility] acid, 1-[address] vitamin C, 13:02: 3D [...] jo-ann 39 l calcium 2021-0 Yes 667mg Q.90567875 Take 667 [facility] acetate 1-[id number] (PHOSLO) 13:02: 3D mouth [...] 39 nightly. l calcium 2021-0 Yes 1334mg Q.53087666 Take 1,334 Methodi acetate,domingo 1-18 [id number] mg by s t sphat bind, 13:02: 3D mouth 3 Hos whit (Phoslyra) 39 (three) l 667 mg (169 times a mg day. calcium)/5 mL solution cyproheptad 2021-0 Yes 4mg Q.58797874 Take 4 mg Methodi ine 1-18 [id number] by mouth [address] (PERIACTIN) 13:02: 3D (three) Hos whit 4 mg tablet 39 times a l day as needed for allergies. buPROPion 2021-0 Yes 300mg QD Take 300 Met hodi XL 1-[address] (WELLBUTRIN 13:02: mouth Hospi ta XL) 300 MG 39 daily. l 24 hr tablet ascorbic 2-0 Yes 500mg Q.[id number] Take 500 [facility] acid, 1-[address] vitamin C, 13:02: 3D [...] jo-ann 39 l calcium 202-0 Yes 667mg Q.67681417 Take 667 [facility] acetate 1-[id number] (PHOSLO) 13:02: 3D mouth [...] 39 nightly. l calcium 2021-0 Yes 1334mg Q.01156532 Take 1,334 [facility]i acetate,domingo 1-18 [id number] mg by s t sphat bind, 13:02: 3D mouth 3 Hos whit (Phoslyra) 39 (three) l 667 mg (169 times a mg day. calcium)/5 mL solution cyproheptad 2021-0 Yes 4mg Q.[id number] Take 4 mg [facility]i ine 1-18 [id number] [address] mouth [address] (PERIACTIN) 13:02: 3D (three) Hos whit 4 mg tablet 39 times a l day as needed for allergies. buPROPion 2021-0 Yes 300mg QD Take 300 Met hodi XL 1-[address] (WELLBUTRIN 13:02: mouth Hospi ta XL) 300 MG 39 daily. l 24 hr tablet ascorbic 2021-0 Yes 500mg Q.69526713 Take 500 [facility] acid, 1-[id number] vitamin C, 13:02: 3D [...] jo-ann 39 l calcium 2-0 Yes 667mg Q.82794163 Take 667 [facility] acetate 1-[id number] (PHOSLO) 13:02: 3D mouth [...] 39 nightly. l calcium 2021-0 Yes 1334mg Q.[id number] Take 1,334 Methodi acetate,domingo 1-18 [id number] mg by s t sphat bind, 13:02: 3D mouth 3 Hos whit (Phoslyra) 39 (three) l 667 mg (169 times a mg day. calcium)/5 mL solution cyproheptad 2021-0 Yes 4mg Q.[id number] Take 4 mg [facility] ine 1-18 [id number] by mouth [address] (PERIACTIN) 13:02: 3D (three) Hos whit 4 mg tablet 39 times a l day as needed for allergies. buPROPion 2021-0 Yes 300mg QD Take 300 Met hodi XL 1-[address] (WELLBUTRIN 13:02: mouth Hospi ta XL) 300 MG 39 daily. l 24 hr tablet ascorbic 2021-0 Yes 500mg Q.60987430 Take 500 [facility] acid, 1-[address] vitamin C, 13:02: 3D [...] jo-ann 39 l calcium 2021-0 Yes 667mg Q.82071532 Take 667 [facility] acetate 1-[id number] (PHOSLO) 13:02: 3D mouth [...] 39 nightly. l calcium 2022-0 Yes 1334mg Q.18391048 Take 1,334 Methodi acetate,domingo 1-18 [id number] mg by s t sphat bind, 13:02: 3D mouth 3 Hos whit (Phoslyra) 39 (three) l 667 mg (169 times a mg day. calcium)/5 mL solution cyproheptad 2021-0 Yes 4mg Q.81061673 Take 4 mg [facility]i ine 1-18 [id number] by mouth [address] (PERIACTIN) 13:02: 3D (three) Hos whit 4 mg tablet 39 times a l day as needed for allergies. buPROPion 2021-0 Yes 300mg QD Take 300 Met hodi XL 1-[address] (WELLBUTRIN 13:02: mouth Hospi ta XL) 300 MG 39 daily. l 24 hr tablet ascorbic 2021-0 Yes 500mg Q.51217235 Take 500 [facility] acid, 1-[address] vitamin C, 13:02: 3D [...] jo-ann 39 l calcium 2021-0 Yes 667mg Q.[id number] Take 667 [facility] acetate 1-[id number] (PHOSLO) 13:02: 3D mouth [...] jo-ann 39 l calcium 2022-0 Yes 667mg Q.75502441 Take 667 [facility] acetate 1-[id number] (PHOSLO) 13:02: 3D mouth [...] 39 nightly. l calcium 0 Yes 1334mg Q.[id number] Take 1,334 Methodi acetate,domingo 1-18 [id number] mg by s t sphat bind, 13:02: 3D mouth 3 Hos whit (Phoslyra) 39 (three) l 667 mg (169 times a mg day. calcium)/5 mL solution cyproheptad Yes 4mg Q.36595427 Take 4 mg [facility]i ine 1-18 [id number] [address] mouth [address] (PERIACTIN) 13:02: 3D (three) Hos whit 4 mg tablet 39 times a l day as needed for allergies. buPROPion Yes 300mg QD Take 300 Met hodi XL 1-[address] (WELLBUTRIN 13:02: mouth Hospi ta XL) 300 MG 39 daily. l 24 hr tablet ascorbic Yes 500mg Q.36262506 Take 500 [facility] acid, 1-[address] vitamin C, 13:02: 3D [...] mg at night vancomycin 2020-06- No 750mg Q.87899344 Infuse 750 [facility] 750 mg in 07-08 [id number] mg into a [address] sodium 00:00: 05:59 3W venous Hospita chloride 00 :00 catheter 3 l 0.9% 250 mL (three) IVPB times a week for 19 days. Administer 3 times weekly in dialysis vancomycin 2020-06- No 750mg Q.83196063 Infuse 750 [facility] 750 mg in 07-08 [id number] mg into a [address] sodium 00:00: 05:59 3W venous Hospita chloride 00 :00 catheter 3 l 0.9% 250 mL (three) IVPB times a week for 19 days. Administer 3 times weekly in dialysis vancomycin 2020-06- No 750mg Q.01948942 Infuse 750 [facility] 750 mg in 07-08 [id number] mg into a [facility] sodium 00:00: 05:59 3W venous Hospita chloride 00 :00 catheter 3 l 0.9% 250 mL (three) IVPB times a week for 19 days. Administer 3 times weekly in dialysis vancomycin 2020-06- No 750mg Q.36437625 Infuse 750 [facility] 750 mg in 07-08 [id number] mg into a [address] sodium 00:00: 05:59 3W venous Hospita chloride 00 :00 catheter 3 l 0.9% 250 mL (three) IVPB times a week for 19 days. Administer 3 times weekly in dialysis vancomycin 2020-06- No 750mg Q.07368161 Infuse 750 [facility] 750 mg in 07-08 [id number] mg into a [address] sodium 00:00: 05:59 3W venous Hospita chloride 00 :00 catheter 3 l 0.9% 250 mL (three) IVPB times a week for 19 days. Administer 3 times weekly in dialysis vancomycin 2020-06- No 750mg Q.12860016 Infuse 750 [facility] 750 mg in 07-08 [id number] mg into a [address] sodium 00:00: 05:59 3W venous [facility]ospita chloride 00 :00 catheter 3 l 0.9% 250 mL (three) IVPB times a week for 19 days. Administer 3 times weekly in dialysis vancomycin 2020-06- No 750mg Q.10873368 Infuse 750 [facility] 750 mg in 07-08 [id number] mg into a [address] sodium 00:00: 05:59 3W venous [facility] chloride 00 :00 catheter 3 l 0.9% 250 mL (three) IVPB times a week for 19 days. Administer 3 times weekly in dialysis vancomycin 2020-06- No 750mg Q.81802567 Infuse 750 [facility] 750 mg in 07-08 [id number] mg into a st sodium 00:00: 05:59 3W venous Hospita chloride 00 :00 catheter 3 l 0.9% 250 mL (three) IVPB times a week for 19 days. Administer 3 times weekly in dialysis vancomycin 2020-06- No 750mg Q.82356706 Infuse 750 [facility] 750 mg in 07-08 [id number] mg into a st sodium 00:00: 05:59 3W venous Hospita chloride 00 :00 catheter 3 l 0.9% 250 mL (three) IVPB times a week for 19 days. Administer 3 times weekly in dialysis vancomycin 2020-06- No 750mg Q.34251342 Infuse 750 [facility] 750 mg in 07-08 [id number] mg into a [address] sodium 00:00: 05:59 3W venous Hospita chloride 00 :00 catheter 3 l 0.9% 250 mL (three) IVPB times a week for 19 days. Administer 3 times weekly in dialysis vancomycin 2020-06- No 750mg Q.69133328 Infuse 750 [facility] 750 mg in 07-08 [id number] mg into a [address] sodium 00:00: 05:59 3W venous Hospita chloride 00 :00 catheter 3 l 0.9% 250 mL (three) IVPB times a week for 19 days. Administer 3 times weekly in dialysis vancomycin 2020-06- No 750mg Q.50662179 Infuse 750 [facility] 750 mg in 07-08 [id number] mg into a [address] sodium 00:00: 05:59 3W venous Hospita chloride 00 :00 catheter 3 l 0.9% 250 mL (three) IVPB times a week for 19 days. Administer 3 times weekly in dialysis vancomycin 2020-06- No 750mg Q.51172716 Infuse 750 [facility] 750 mg in 07-08 [id number] mg into a [address] sodium 00:00: 05:59 [...] -acetaminop 2-29 01-[address] hen ([facility]) 00:00: 05:59 mouth Hosp jo-ann 5-325 mg 00 :00 every 6 l per tablet (six) hours as needed for severe pain for up to 5 days .acute pain. Max Daily Amount: 4 tablets HYDROcodone 2020-06 1{tbl} Q6H Take 1 [facility] -acetaminop 2-29 -[address] hen ([facility]) 00:00: 05:59 mouth Hosp jo-ann 5-325 mg 00 :00 every 6 l per tablet (six) hours as needed for severe pain for up to 5 days .acute pain. Max Daily Amount: 4 tablets HYDROcodone 2020-06 1{tbl} Q6H Take 1 [facility] -acetaminop 2-29 -[address] hen ([facility]) 00:00: 05:59 mouth Hosp jo-ann 5-325 mg 00 :00 every 6 l per tablet (six) hours as needed for severe pain for up to 5 days .acute pain. Max Daily Amount: 4 tablets HYDROcodone 2020-0628 1{tbl} Q6H Take 1 [facility] -acetaminop 2-29 -[address] hen ([facility]) 00:00: 05:59 mouth Hosp jo-ann 5-325 mg 00 :00 every 6 l per tablet (six) hours as needed for severe pain for up to 5 days .acute pain. Max Daily Amount: 4 tablets HYDROcodone 2020-06 1{tbl} Q6H Take 1 [facility] -acetaminop 2-29 -[address] hen ([facility]) 00:00: 05:59 mouth Hosp jo-ann 5-325 mg 00 :00 every 6 l per tablet (six) hours as needed for severe pain for up to 5 days .acute pain. Max Daily Amount: 4 tablets HYDROcodone 2020-06 1{tbl} Q6H Take 1 [facility] -acetaminop 2-29 -[address] hen ([facility]) 00:00: 05:59 mouth Hosp jo-ann 5-325 mg 00 :00 every 6 l per tablet (six) hours as needed for severe pain for up to 5 days .acute pain. Max Daily Amount: 4 tablets HYDROcodone 2020-06 1{tbl} Q6H Take 1 [facility] -acetaminop 2-29 -[address] hen ([facility]) 00:00: 05:59 mouth Hosp jo-ann 5-325 mg 00 :00 every 6 l per tablet (six) hours as needed for severe pain for up to 5 days .acute pain. Max Daily Amount: 4 tablets HYDROcodone 2020-06 1{tbl} Q6H Take 1 [facility] -acetaminop 2-29 -[address] hen ([facility]) 00:00: 05:59 mouth Hosp jo-ann 5-325 mg 00 :00 every 6 l per tablet (six) hours as needed for severe pain for up to 5 days .acute pain. Max Daily Amount: 4 tablets HYDROcodone 2020-06 1{tbl} Q6H Take 1 [facility] -acetaminop 2-29 -[address] hen ([facility]) 00:00: 05:59 mouth Hosp jo-ann 5-325 mg 00 :00 every 6 l per tablet (six) hours as needed for severe pain for up to 5 days .acute pain. Max Daily Amount: 4 tablets HYDROcodone 2020-06 1{tbl} Q6H Take 1 [facility] -acetaminop 2-29 -[address] hen ([facility]) 00:00: 05:59 mouth Hosp jo-ann 5-325 mg 00 :00 every 6 l per tablet (six) hours as needed for severe pain for up to 5 days .acute pain. Max Daily Amount: 4 tablets HYDROcodone 2020-06 1{tbl} Q6H Take 1 [facility] -acetaminop 2-29 -[address] hen ([facility]) 00:00: 05:59 mouth Hosp jo-ann 5-325 mg 00 :00 every 6 l per tablet (six) hours as needed for severe pain for up to 5 days .acute pain. Max Daily Amount: 4 tablets HYDROcodone 2020-06 1{tbl} Q6H Take 1 [facility] -acetaminop 2-29 -[address] hen ([facility]) 00:00: 05:59 mouth Hosp jo-ann 5-325 mg [...] 2-05 12-13 tablets by s t hen ([facility]) 00:00: 05:59 mouth Hosp jo-ann 5-325 mg 00 :00 every 8 l per tablet (eight) hours as needed for severe pain for up to 7 days .acute pain. Max Daily Amount: 6 tablets HYDROcodone 2020-0628 2{tbl} Q8H Take 2 [facility] -acetaminop 2-05 12-13 tablets by s t hen ([facility]) 00:00: 05:59 mouth Hosp jo-ann 5-325 mg 00 :00 every 8 l per tablet (eight) hours as needed for severe pain for up to 7 days .acute pain. Max Daily Amount: 6 tablets HYDROcodone 2020-0628 2{tbl} Q8H Take 2 [facility]i -acetaminop 2-05 12-13 tablets by s t hen ([facility]) 00:00: 05:59 mouth Hosp jo-ann 5-325 mg 00 :00 every 8 l per tablet (eight) hours as needed for severe pain for up to 7 days .acute pain. Max Daily Amount: 6 tablets HYDROcodone 2020-0628 2{tbl} Q8H Take 2 Methodi -acetaminop 2-05 12-13 tablets by s t hen ([facility]) 00:00: 05:59 mouth Hosp jo-ann 5-325 mg 00 :00 every 8 l per tablet (eight) hours as needed for severe pain for up to 7 days .acute pain. Max Daily Amount: 6 tablets HYDROcodone 2020-0628 2{tbl} Q8H Take 2 [facility]i -acetaminop 2-05 12-13 tablets by s t hen ([facility]) 00:00: 05:59 mouth Hosp jo-ann 5-325 mg 00 :00 every 8 l per tablet (eight) hours as needed for severe pain for up to 7 days .acute pain. Max Daily Amount: 6 tablets HYDROcodone 2020-0628 2{tbl} Q8H Take 2 Methodi -acetaminop 2-05 12-13 tablets by s t hen ([facility]) 00:00: 05:59 mouth Hosp jo-ann 5-325 mg 00 :00 every 8 l per tablet (eight) hours as needed for severe pain for up to 7 days .acute pain. Max Daily Amount: 6 tablets HYDROcodone 2020-06 [id number] 2{tbl} Q8H Take 2 Methodi -acetaminop 2-05 12-13 tablets by s t hen ([facility]) 00:00: 05:59 mouth Hosp jo-ann 5-325 mg 00 :00 every 8 l per tablet (eight) hours as needed for severe pain for up to 7 days .acute pain. Max Daily Amount: 6 tablets HYDROcodone 2020-0628 2{tbl} Q8H Take 2 Methodi -acetaminop 2-05 12-13 tablets by s t hen ([facility]) 00:00: 05:59 mouth Hosp jo-ann 5-325 mg 00 :00 every 8 l per tablet (eight) hours as needed for severe pain for up to 7 days .acute pain. Max Daily Amount: 6 tablets HYDROcodone 2020-06 2{tbl} Q8H Take 2 Methodi -acetaminop 2-05 12-13 tablets by s t hen ([facility]) 00:00: 05:59 mouth Hosp jo-ann 5-325 mg 00 :00 every 8 l per tablet (eight) hours as needed for severe pain for up to 7 days .acute pain. Max Daily Amount: 6 tablets HYDROcodone 2020-0628 2{tbl} Q8H Take 2 [facility]i -acetaminop 2-05 12-13 tablets by s t hen ([facility]) 00:00: 05:59 mouth Hosp jo-ann 5-325 mg [...] Daily Amount: 6 tablets predniSONE 2020-06- No [id number] Take M ethodi (DELTASONE) 07-18 12-05 Prednisone s t 50 mg 00:00: 00:00 50mg 13 Hospita tablet 00 :00 hours, 7 l hours, and 1 hour prior to scheduled procedure on 05/19/2021 for contrast allergy prophylaxi s. predniSONE 2020-06- No [id number] Take M ethodi (DELTASONE) 07-18 12-05 Prednisone s t 50 mg 00:00: 00:00 50mg 13 Hospita tablet 00 :00 hours, 7 l hours, and 1 hour prior to scheduled procedure on 05/19/2021 for contrast allergy prophylaxi s. predniSONE 2020-06- No [id number] Take M ethodi (DELTASONE) 07-18 12-05 Prednisone s t 50 mg 00:00: 00:00 50mg 13 Hospita tablet 00 :00 hours, 7 l hours, and 1 hour prior to scheduled procedure on 05/19/2021 for contrast allergy prophylaxi s. predniSONE 2020-06- No [id number] Take M ethodi (DELTASONE) 07-18 12-05 Prednisone s t 50 mg 00:00: 00:00 50mg 13 Hospita tablet 00 :00 hours, 7 l hours, and 1 hour prior to scheduled procedure on 05/19/2021 for contrast allergy prophylaxi s. predniSONE 2020-06- No [id number] Take M ethodi (DELTASONE) 07-18 12-05 Prednisone s t 50 mg 00:00: 00:00 50mg 13 Hospita tablet 00 :00 hours, 7 l hours, and 1 hour prior to scheduled procedure on 05/19/2021 for contrast allergy prophylaxi s. predniSONE 2020-06- No [id number] Take M ethodi (DELTASONE) 07-18 12-05 Prednisone s t 50 mg 00:00: 00:00 50mg 13 Hospita tablet 00 :00 hours, 7 l hours, and 1 hour prior to scheduled procedure on 05/19/2021 for contrast allergy prophylaxi s. predniSONE 2020-06- No [id number] Take M ethodi (DELTASONE) 07-18 12-05 Prednisone s t 50 mg 00:00: 00:00 50mg 13 Hospita tablet 00 :00 hours, 7 l hours, and 1 hour prior to scheduled procedure on 05/19/2021 for contrast allergy prophylaxi s. predniSONE 2020-06- No [id number] Take M ethodi (DELTASONE) 07-18 12-05 Prednisone s t 50 mg 00:00: 00:00 50mg 13 Hospita tablet 00 :00 hours, 7 l hours, and 1 hour prior to scheduled procedure on 05/19/2021 for contrast allergy prophylaxi s. predniSONE 2020-06- No [id number] Take M ethodi (DELTASONE) 07-18 12-05 Prednisone s t 50 mg 00:00: 00:00 50mg 13 Hospita tablet 00 :00 hours, 7 l hours, and 1 hour prior to scheduled procedure on 05/19/2021 for contrast allergy prophylaxi s. predniSONE 2020-06- No [id number] Take M ethodi (DELTASONE) 07-18 12-05 Prednisone [...] by mouth ity of (PROTONIX) 11:08: daily. [place] 20 mg EC 01 Medical tablet Branch [...] by ity of capsule 23:08: mouth 2 [place] [address] (two) Medical times Branch daily. vitamin C 2020-06 Yes 2000mg Take 2,000 [facility] with sia 0-01 mg by ity of hips 23:08: mouth 2 [place] (VITAMIN C) (two) Medical 1,000 mg times Branch tablet daily. metoprolol 2020-06 Yes 50mg Take 50 mg U nivers tartrate 50 0-01 by mouth ity of mg tablet 23:08: daily. [place] [address] Medical Branch folic 2020-06 Yes 800mg Take 800 Univers acid/vit B 0-01 mg by ity of complex and 23:08: mouth [place] C 36 daily. Medical (DIALYVITE Branch 800 ORAL) linagliptin 2020-06 Yes Take by Uni vers (TRADJENTA) 0-01 mouth. ity of 5 mg tablet 23:08: [address] Branch spironolact 2020-06 Yes 50mg Take 50 mg Univers one 50 mg 0-01 by mouth ity of tablet 23:08: daily. [address] Branch pravastatin 2020-06 Yes 40mg Take 40 mg Univers 40 mg 0-01 by mouth ity of tablet 23:08: daily. [address] Branch mv-mn/iron/ 2020-06 Yes 1{capsu Take 1 U nivers folic 0-01 le} capsule by ity of acid/herb 23:08: mouth [place] 190 daily. Medical (VITAMIN D3 Branch COMPLETE ORAL) SERTraline 2020-06 Yes 50mg Take 50 mg U nivers 50 mg 0-01 by mouth ity of tablet 23:08: daily. [address] Branch calcium 2020-06 Yes 667mg Take [...] mouth 2 ity of tablet 23:08: (two) [place] [address] times Medical daily. Branch divalproex 2020-06 Yes 500mg Take 500 Un lori ER 0-01 mg by ity of (DEPAKOTE 23:08: mouth 2 [place] ER) 500 mg 36 (two) Medical 24 hr times Branch tablet daily. gabapentin 2020-06 Yes 100mg Take 100 Un lori 100 mg 0-01 mg by ity of capsule 23:08: mouth 2 [place] 36 (two) Medical times Branch daily. vitamin C 2020-06 Yes 2000mg Take 2,000 Univers with sia 0-01 mg by ity of hips 23:08: mouth 2 [place] (VITAMIN C) 36 (two) Medical 1,000 mg times Branch tablet daily. metoprolol 2020-06 Yes 50mg Take 50 mg U nivers tartrate 50 0-01 by mouth ity of mg tablet 23:08: daily. [address] Branch folic 2020-06 Yes 800mg Take 800 Univers acid/vit B 0-01 mg by ity of complex and 23:08: mouth [place] C 36 daily. Medical (DIALYVITE Branch 800 ORAL) linagliptin 2020-06 Yes Take by Uni vers (TRADJENTA) 0-01 mouth. ity of 5 mg tablet 23:08: [address] Branch spironolact 2020-06 Yes 50mg Take 50 mg Univers one 50 mg 0-01 by mouth ity of tablet 23:08: daily. [address] Branch pravastatin 2020-06 Yes 40mg Take 40 mg Univers 40 mg 0-01 by mouth ity of tablet 23:08: daily. [address] Branch mv-mn/iron/ 2020-06 Yes 1{capsu Take 1 U nivers folic 0-01 le} capsule by ity of acid/herb 23:08: mouth [place] 190 36 daily. Medical (VITAMIN D3 Branch COMPLETE ORAL) SERTraline 2020-06 Yes 50mg Take 50 mg U nivers 50 mg 0-01 by mouth ity of tablet 23:08: daily. [address] Branch calcium 2020-06 Yes 667mg Take [...] janice 8-11 (Same as: l 01:36: Mylicon) [place] Simethicone No Notes: [place] janice 8-11 (Same as: l 01:36: Mylicon) [place] 00 Simethicone No Notes: [place] janice 8-11 (Same as: l 01:36: Mylicon) [place] 00 Simethicone No Notes: [place] janice 8-11 (Same as: l 01:36: Mylicon) [place] 00 epoetin 2020-0 Yes 2,000 unit [place] janice [...] 0 Refill(s) epoetin 2020-0 Yes 2,000 unit [place] janice giovanny-epbx 8-10 = 1 mL, l 1999 19:37: IV, [place] units/mL 00 Q, preservativ to be e-free given at injectable post solution Dialysis sessions, 0 Refill(s) epoetin 0 Yes 2,000 unit [place] janice giovanny-epbx 8-10 = 1 mL, l 1999 19:37: IV, [place] units/mL 00 Q-, preservativ to be e-free given at injectable post solution Dialysis sessions, 0 Refill(s) epoetin 2020-0 Yes 2,000 unit [place] janice giovanny-epbx 8-10 = 1 mL, l 1999 19:37: IV, [place] units/mL 00 Q, preservativ to be e-free given at injectable post solution Dialysis sessions, 0 Refill(s) gabapentin 2020-0 Yes 300 mg = 1 M emoria 300 MG Oral 8-10 cap, PO, l Capsule 19:34: Q---, # Herm naeem 00 13 cap, 0 Refill(s) gabapentin 2020-0 Yes 300 mg = 1 M emoria 300 MG Oral 8-10 cap, PO, l Capsule 19:34: Q--, # Herm naeem 00 13 cap, 0 [...] tab, PO, l tablet 19:33: BID, 0 [place] 00 Refill(s) buPROPion 0 Yes 75 mg = 1 Mem oria 75 mg oral 8-10 tab, PO, l tablet 19:33: Daily, # Vin 00 14 tab, 0 Refill(s) amLODIPine 0 Yes 10 mg = 1 Me moria 10 mg oral 8-10 tab, PO, l tablet 19:33: Daily, # [place] 00 30 tab, 2 Refill(s) busPIRone 0 Yes 7.5 mg = 1 Me moria 7.5 mg oral 8-10 tab, PO, l tablet 19:33: BID, 0 Vin 00 Refill(s) buPROPion 2020-0 Yes 75 mg = 1 Mem oria 75 mg oral 8-10 tab, PO, l tablet 19:33: Daily, # [place] 00 14 tab, 0 Refill(s) amLODIPine 0 Yes 10 mg = 1 Me moria 10 mg oral 8-10 tab, PO, l tablet 19:33: Daily, # [place] 00 30 tab, 2 Refill(s) busPIRone 2020-0 [...] tab, PO, l tablet 19:33: Daily, # [place] 00 14 tab, 0 Refill(s) amLODIPine Yes 10 mg = 1 Me moria 10 mg oral 8-10 tab, PO, l tablet 19:33: Daily, # Vin 00 30 tab, 2 Refill(s) busPIRone Yes 7.5 mg = 1 Me moria 7.5 mg oral 8-10 tab, PO, l tablet 19:33: BID, 0 [place] 00 Refill(s) buPROPion Yes 75 mg = 1 Mem oria 75 mg oral 8-10 tab, PO, l tablet 19:33: Daily, # Vin 00 14 tab, 0 Refill(s) Norvasc No Notes: Memoria 8-10 (Same as: l 17:35: Norvasc) Norvasc No Notes: Memoria 8-10 (Same as: l 17:35: Norvasc) [place] 00 Norvasc No Notes: Memoria 8-10 (Same as: l 17:35: Norvasc) [place] 00 Norvasc No Notes: Memoria 8-10 (Same [...] 50 mL, 0 Epogen 2021-0 No Notes: Memoria 01-27 WASTE: F/P l 22:00: - Red; E [place] 00 Red MEDICIATIO N WASTE Product Size: 2,000 unit Product Wasted: ____unit Epogen No Notes: 01-27 WASTE: F/P l 22:00: - Red; E [place] 00 Red MEDICIATIO N WASTE Product Size: 2,000 unit Product Wasted: ____unit Epogen No Notes: 01-27 WASTE: F/P l 22:00: - Red; E [place] 00 Red MEDICIATIO N WASTE Product Size: 2,000 unit Product Wasted: ____unit Epogen No Notes: 01-27 WASTE: F/P l 22:00: - Red; E Vin 00 Red MEDICIATIO N WASTE Product Size: 2,000 unit Product Wasted: ____unit Epogen No Notes: 01-27 WASTE: F/P l 22:00: - Red; E [place] Red MEDICIATIO N WASTE Product Size: 2,000 unit Product Wasted: ____unit D5NS ,000 No 1,000 mL, Me moria mL 01-27 Rate: 20 l 20:28: ml/hr, [place] Infuse over: 50 hr, Route: IV, Dosing Weight 74.5 kg, Total Volume: 1,000, Start date: 01/27/21 15:28:00 CDT, Duration: 30 day, Stop date: 02/26/21 15:27:00 CDT, BSA: 1.79 m2, 0 D5NS ,000 No 1,000 mL, Me moria mL 01-27 Rate: 20 l 20:28: ml/hr, [place] Infuse over: 50 hr, Route: IV, Dosing Weight 74.5 kg, Total Volume: 1,000, Start date: 01/27/21 15:28:00 CDT, Duration: 30 day, Stop date: 02/26/21 15:27:00 CDT, BSA: 1.79 m2, 0 D5NS ,000 No 1,000 mL, Me moria mL 8-09 Rate: 20 l 20:28: ml/hr, [place] 00 Infuse over: 50 hr, Route: IV, [...] mL 01-27 Rate: 20 l 20:28: ml/hr, [place] 00 Infuse over: 50 hr, Route: IV, Dosing Weight 74.5 kg, Total Volume: 1,000, Start date: 01/27/21 15:28:00 CDT, Duration: 30 day, Stop date: 02/26/21 15:27:00 CDT, BSA: 1.79 m2, 0 Tylenol No Notes: Do Memor ia 01-27 not exceed l 09:29: 4 gm/day. [place] (Same as: Tylenol) tramadol No Notes: Not [...] 01-27 not exceed l 09:29: 4 gm/day. [place] 00 (Same as: Tylenol) tramadol No Notes: Not Mem oria hydrochlori 01-27 to exceed l de 50 MG 09:29: 400mg/day. Her braden Oral Tablet 00 (Same As: Ultram) heparin No Notes: Memoria 01-27 porcine l 02:00: heparin [place] 00 heparin No Notes: Memoria 01-27 porcine l 02:00: heparin [place] 00 heparin No Notes: Memoria 01-27 porcine l 02:00: heparin [place] 00 heparin No Notes: Memoria 01-27 porcine l 02:00: heparin [place] 00 heparin No Notes: Memoria 01-27 porcine l 02:00: heparin [place] 00 Magnesium No Notes: Memori a Oxide 8- (Same as: l 22:54: Mag-Ox [place] 00 400) Magnesium oxide 753uy=[id number] g elemental magnesium Dose=____m g magnesium oxide (___mg elemental magnesium) Magnesium No Notes: Memori a Oxide 8- (Same as: l 22:54: Mag-Ox [place] 00 400) Magnesium oxide 023an=101y g elemental magnesium Dose=____m g magnesium oxide (___mg elemental magnesium) Magnesium No Notes: Memori a Oxide 8- (Same as: l 22:54: Mag-Ox [place] 00 400) Magnesium oxide 145zm=507q g elemental magnesium Dose=____m g magnesium oxide (___mg elemental magnesium) Magnesium No Notes: Memori a Oxide 8-05 (Same as: l 22:54: Mag-Ox [place] 400) Magnesium oxide 111ve=438t g elemental magnesium Dose=____m g magnesium oxide (___mg elemental magnesium) Magnesium No Notes: Memori a Oxide 8-05 (Same as: l 22:54: Mag-Ox [place] 400) Magnesium oxide 603hx=622w g elemental magnesium Dose=____m g magnesium oxide (___mg elemental magnesium) Coreg No Notes: Memoria 8-05 Give with l 02:00: food. Vin (Same As: Coreg) Coreg No Notes: Memoria 8-05 Give with l 02:00: food. [place] (Same As: Coreg) Coreg No Notes: Memoria 8-05 Give with l 02:00: food. [place] (Same As: Coreg) Coreg No Notes: Memoria 8-05 Give with l 02:00: food. [place] (Same As: Coreg) Coreg No Notes: Memoria 8-05 Give with l 02:00: food. [place] 00 (Same As: Coreg) Buspar No Notes: Memoria 8-04 (Same As: l 22:00: BuSpar) Vin 00 Buspar No Notes: Memoria 8-04 (Same As: l 22:00: BuSpar) Vin 00 Buspar No Notes: Memoria 8-04 (Same As: l 22:00: BuSpar) Vin 00 Buspar No Notes: [facility]oria 8-04 (Same As: l 22:00: BuSpar) Vin 00 Buspar No Notes: [facility]oria 8-04 (Same As: l 22:00: BuSpar) [place] 00 Fentanyl No Notes: [facility]oria 8-04 (Same as: l 21:06: Sublimaze) [place] 00 Preservati ve free. Fentanyl No Notes: Memoria 8-04 (Same as: l 21:06: Sublimaze) [place] 00 Preservati ve free. Fentanyl No Notes: Memoria 8-04 (Same as: l 21:06: Sublimaze) [place] 00 Preservati ve free. Fentanyl No Notes: Memoria 8-04 (Same as: l 21:06: Sublimaze) Vin 00 Preservati ve free. Fentanyl No Notes: [facility]oria 8-04 (Same as: l 21:06: Sublimaze) [place] 00 Preservati ve free. Norvasc No Notes: [facility]oria 8-04 (Same as: l 16:47: Norvasc) [place] 00 Norvasc No Notes: [facility]oria 8-04 (Same as: l 16:47: Norvasc) [place] 00 Norvasc No Notes: [facility]oria 8-04 (Same as: l 16:47: Norvasc) [place] 00 Norvasc No Notes: [facility]oria 8-04 (Same [...] a 8-04 (Same as: l 14:00: Cardura) [place] 00 Furosemide No Notes: Memor ia 40 [...] 8-04 not exceed l 09:44: 4 gm/day. [place] 00 (Same as: Tylenol) Fentanyl No Notes: Memoria 8-04 (Same as: l 09:44: Sublimaze) Preservati ve free. Tramadol No Notes: Not Mem oria 8-04 to exceed l 09:44: 400mg/day. [place] 00 (Same As: Ultram) Tylenol No Notes: Do Memor ia 8-04 not exceed l 09:44: 4 gm/day. [place] 00 (Same as: Tylenol) Fentanyl No Notes: Memoria 8-04 (Same as: l 09:44: Sublimaze) [place] 00 Preservati ve free. Tramadol No Notes: Not Mem oria 8-04 to exceed l 09:44: 400mg/day. [place] 00 (Same As: Ultram) Tylenol No Notes: [...] Memoria 8-04 (Same as: l 09:44: Sublimaze) [place] 00 Preservati ve free. Fentanyl No Notes: Memoria 8-04 (Same as: l 04:46: Sublimaze) [place] 00 Preservati ve free. Fentanyl No Notes: [facility]oria 8-04 (Same as: l 04:46: Sublimaze) [place] 00 Preservati ve free. Fentanyl 0 No Notes: [facility]oria 8-04 (Same as: l 04:46: Sublimaze) [place] 00 Preservati ve free. Fentanyl 0 No Notes: Memoria 8-04 (Same as: l 04:46: Sublimaze) [place] 00 Preservati ve free. Fentanyl 0 No Notes: Memoria 8-04 (Same as: l 04:46: Sublimaze) [place] 00 Preservati ve free. Fentanyl 0 No Notes: Memoria 8-04 (Same as: l 02:01: Sublimaze) [place] 00 Preservati ve free. Fentanyl No Notes: Memoria 8-04 (Same as: l 02:01: Sublimaze) [place] 00 Preservati ve free. Fentanyl No Notes: Memoria 8-04 (Same as: l 02:01: Sublimaze) [place] 00 Preservati ve free. Fentanyl No Notes: Memoria 8-04 (Same as: l 02:01: Sublimaze) [place] 00 Preservati ve free. Fentanyl No Notes: Memoria 8-04 (Same as: l 02:01: Sublimaze) [place] 00 Preservati ve free. Coreg No Notes: [...] 0.9% 8-04 Same as: l 02:00: BD [place] 00 Posiflush Sterile Valproate No 1,000 mg, [...] 8-04 2 tab, l 02:00: Route: PO, [place] 00 Drug form: ERTAB, Bedtime, Start date: 01/21/21 21:00:00 CDT, Duration: 30 day, Stop date: 02/19/21 21:00:00 CDT, 0 Coreg No Notes: Memoria 8-04 Give with l 02:00: food. [place] 00 (Same As: Coreg) Saline No Notes: [facility]oria Flush 0.9% 8-04 Same as: l 02:00: BD [place] 00 Posiflush Sterile Valproate No 1,000 mg, Mem oria 8-04 2 tab, l 02:00: Route: PO, [place] 00 Drug form: ERTAB, Bedtime, Start date: 01/21/21 21:00:00 CDT, Duration: 30 day, Stop date: 02/19/21 21:00:00 CDT, 0 Coreg No Notes: [facility]oria 8-04 Give with l 02:00: food. Vin 00 (Same As: Coreg) Saline No Notes: [facility] Flush 0.9% 8-04 Same as: l 02:00: BD [place] 00 Posiflush Sterile Valproate No 1,000 mg, Mem oria 8-04 2 tab, l 02:00: Route: PO, [place] 00 Drug form: ERTAB, Bedtime, Start date: 01/21/21 21:00:00 CDT, Duration: 30 day, Stop date: 02/19/21 21:00:00 CDT, 0 heparin No Notes: [facility]oria 8-03 porcine l 21:00: heparin [place] 00 heparin No Notes: [facility] 8-03 porcine l 21:00: heparin [place] 00 heparin No Notes: [facility] 8-03 porcine l 21:00: heparin [place] 00 heparin No Notes: [facility]oria 8-03 porcine l 21:00: heparin [place] 00 heparin No Notes: Memoria 8-03 porcine l 21:00: heparin [place] 00 Dextrose 2021-0 No 12.5 gm, Memor ia 50% Syringe - 25 mL, l (D50W) 20:01: Route: [place] 00 IVP, Drug Form: INJ, Dosing Weight 74.5, kg, PRN, PRN Blood Glucose Results, Start date: 01/21/21 15:01:00 CDT, Duration: 30 day, Stop date: 02/20/21 15:00:00 CDT, 0 Glucagon 2020-0 No 1 mg, Memoria 8- Route: IM, l 20:01: Drug form: [place] 00 PDR/INJ, PRN, Dosing Weight 74.5, kg, PRN Blood Glucose Results, Start date: 01/21/21 15:01:00 CDT, Duration: 30 day, Stop date: 02/20/21 15:00:00 CDT, 0 Insulin 202-0 No Notes: [facility]oria Lispro - (Same as: [...] Lispro 8-03 (Same as: l 20:01: Humalog) Roll in [...] 8 Route: IM, l 20:01: Drug form: [place] 00 PDR/INJ, PRN, Dosing Weight 74.5, kg, [...] 01-21 25 mL, l (D50W) 20:01: Route: [place] IVP, Drug Form: INJ, Dosing Weight 74.5, kg, PRN, PRN Blood Glucose Results, Start date: 01/21/21 15:01:00 CDT, Duration: 30 day, Stop date: 02/20/21 15:00:00 CDT, 0 Glucagon No 1 mg, Memoria 01-21 Route: IM, l 20:01: Drug form: [place] PDR/INJ, PRN, Dosing Weight 74.5, kg, PRN [...] No Notes: Memor ia 300 MG Oral 8- (Same as: l Capsule 19:58: Neurontin) gabapentin No Notes: Memor ia 300 MG Oral 8- (Same as: l Capsule 19:58: Neurontin) gabapentin [...] Same as: l 200 mL 18:26: Cardene [place] (Titrate.) 00 Concentrat IV 40 mg ion: (0.2 mg /1 ml ) Cardene 40 No Notes: Memor ia mg in NS 01-21 Same as: l 200 mL 18:26: Cardene Vin (Titrate.) 00 Concentrat IV 40 mg ion: (0.2 mg /1 ml ) Cardene 40 No Notes: Memor ia mg in NS 01-21 Same as: l 200 mL 18:26: Cardene [place] (Titrate.) 00 Concentrat IV 40 mg ion: (0.2 mg /1 ml ) Cardene 40 No Notes: Memor ia mg in NS 01-21 Same as: l 200 mL 18:26: Cardene [place] (Titrate.) 00 Concentrat IV 40 mg ion: (0.2 mg /1 ml ) Cardene 40 No Notes: Memor ia mg in NS 01-21 Same as: l 200 mL 18:26: Cardene Vin (Titrate.) 00 Concentrat IV 40 mg ion: (0.2 mg /1 ml ) Cyproheptad No 4 mg, 1 Mem oria ine - tab, l 18:00: Route: PO, [place] 00 Drug form: TAB, TID, Dosing Weight [...] ine 8-03 tab, l 18:00: Route: PO, [place] 00 Drug form: TAB, TID, Dosing Weight [...] Me moria 8 RT l 17:49: DOCUMENTAT [place] 00 ION (Same as: Proventil) Albuterol No Notes: SEE Me moria 8 RT l 17:49: DOCUMENTAT [place] 00 ION (Same as: Proventil) Albuterol No Notes: SEE Me moria 8 RT l 17:49: DOCUMENTAT [place] 00 ION (Same as: Proventil) albuterol No [...] being intubated (unless the nurse is a SYSTEMS PROGRAMMER ANALYST). Same as: Diprivan Nystatin No Notes: Mem[facility] 100 UNT/MG 8-03 (Same l Topical 17:31: as:Mycosta Herm naeem Powder 00 tin, Nilstat) For external use only. Saline No Notes: [facility] Flush 0.9% 8-03 Same as: l 17:31: BD [place] 00 Posiflush Sterile propofol No Notes: If M emoria mg/mL 8-03 Diprivan - l (Titrate.) 17:31: change Nidia nn IV 1,000 mg 00 bottle & tubing every 12 hr Per state nursing law propofol can only be given by a nurse if patient is intubated or being intubated (unless the nurse is a SYSTEMS PROGRAMMER ANALYST). Same as: Diprivan Nystatin No Notes: Memoria [...] being intubated (unless the nurse is a SYSTEMS PROGRAMMER ANALYST). Same as: Diprivan Nystatin No Notes: [facility] 100 UNT/MG 8-03 (Same l Topical 17:31: as:Mycosta Herm naeem Powder 00 tin, Nilstat) For external use only. Saline No Notes: [facility]oria Flush 0.9% 01-21 Same as: l 17:31: BD [place] 00 Posiflush Sterile propofol 10 No Notes: If M emoria mg/mL 01-21 Diprivan - l (Titrate.) 17:31: change Nidia nn IV 1,000 mg 00 bottle & tubing every 12 hr Per state nursing law propofol can only be given by a nurse if patient is intubated or being intubated (unless the nurse is a SYSTEMS PROGRAMMER ANALYST). Same as: Diprivan Nystatin No Notes: [facility] 100 UNT/MG 01-21 (Same l Topical 17:31: as:Mycosta Herm naeem Powder 00 tin, Nilstat) For external use only. Saline No Notes: Memoria Flush 0.9% 01-21 Same as: l 17:31: BD [place] 00 Posiflush Sterile propofol No Notes: If M emoria mg/mL 01-21 Diprivan - l (Titrate.) 17:31: change Nidia nn IV 1,000 mg 00 bottle & tubing every 12 hr Per state nursing law propofol can only be given by a nurse if patient is intubated or being intubated (unless the nurse is a SYSTEMS PROGRAMMER ANALYST). Same as: Diprivan midazolam No Route: IV, Me moria (ANES) 01-21 Drug form: l 17:18: SOLN, [place] 00 ONCE, Stop date: 01/21/21 12:18:00 CDT fentaNYL No Route: IV, Mem oria (ANES) 01-21 Drug form: l 17:18: INJ, ONCE, [place] 00 Stop date: 01/21/21 12:18:00 CDT niCARdipine No Route: IV, Memoria (ANES) 01-21 Drug form: l 17:18: INJ, ONCE, [place] Stop date: 01/21/21 12:18:00 CDT midazolam No Route: IV, Me moria (ANES) 01-21 Drug form: l 17:18: SOLN, [place] 00 ONCE, Stop date: 01/21/21 12:18:00 CDT fentaNYL No Route: IV, Mem oria (ANES) 01-21 Drug form: l 17:18: INJ, ONCE, [place] 00 Stop date: 01/21/21 12:18:00 CDT niCARdipine 0 No Route: IV, Memoria (ANES) 01-21 Drug form: l 17:18: INJ, ONCE, [place] 00 Stop date: 01/21/21 12:18:00 CDT midazolam 2020-0 No Route: IV, Me moria (ANES) 01-21 Drug form: l 17:18: SOLN, [place] ONCE, Stop date: 01/21/21 12:18:00 CDT fentaNYL [...] (ANES) 01-21 Drug form: l 17:18: SOLN, [place] ONCE, Stop date: 01/21/21 12:18:00 CDT fentaNYL 2020-0 No Route: IV, Mem oria (ANES) 01-21 Drug form: l 17:18: INJ, ONCE, [place] 00 Stop date: 01/21/21 12:18:00 CDT niCARdipine [...] ONCE, Stop date: 01/21/21 11:20:00 CDT EPINEPHrine 2021-0 No Route: IV, Mem[facility] (ANES) 01-21 [...] (ANES) 01-21 Drug form: l 14:51: INJ, Stop date: 01/21/21 9:51:00 CDT propofol 0 [...] 0:00:00 CDT, 0 Fentanyl No Notes: Memoria -03 (Same as: l 13:16: Sublimaze) Preservati ve free. Hydromorpho No Notes: Mnedoza janice ne - Same as l 13:16: Dilaudid Flumazenil No Notes: Memor ia - (Same as: l 13:16: Romazicon) Naloxone No Notes: Memoria 8- Same as l 13:16: Narcan Albuterol No Notes: SEE Me moria 0.83 MG/ML 8-03 RT l Inhalant 13:16: DOCUMENTAT Her braden Solution 00 ION (Same as: Proventil) Ondansetron No Notes: Mendoza janice 8-03 (Same as: l 13:16: Zofran) MEDICATION WASTE Product Size: 4 mg Product Wasted: ___ mg Promethazin No Notes: Do M emoria e 8- not give l 13:16: IV push. [place] 00 (Same as: Phenergan) Simethicone No Notes: Mendoza janice 01-21 (Same as: l 13:16: [place]licon, [place] 00 Phazyme, Genasyme) Hydralazine No Notes: Mendoza [...] janice 01-21 (Same as: l 13:16: Zofran) Vin 00 [...] janice 01-21 (Same as: l 13:16: Zofran) [place] 00 MEDICATION WASTE Product Size: 4 mg Product Wasted: ___ mg Promethazin No Notes: Do M emoria e 01-21 not give l 13:16: IV push. Vin (Same as: Phenergan) Simethicone No Notes: Mendoza janice - (Same as: l 13:16: Mylicon, [place] 00 Phazyme, Genasyme) Hydralazine No Notes: Mendoza [...] janice 8 (Same as: l 13:16: [place]licon, [place] 00 Phazyme, Genasyme) Hydralazine No Notes: Mendoza [...] Genasyme) calcium No See Memoria acetate 667 -03 Instructio l MG Oral 12:59: ns, 1 [...] 00 PO with meals, 0 Refill(s) Calcium 0 Yes 667mg Take 667 UT Acetate 667 7-16 mg by Health MG tablet 13:04: mouth 4 35 (four) times a day if needed. furosemide Yes 40mg Q.5D Take 40 mg U T (Lasix) 40 7-16 by mouth 2 [facility]a [facility] MG tablet 13:04: (two) 35 times a day. cholecalcif Yes 5000U QD Take 5,000 UT mansi (D3-5) 7-16 Units by [facility] th 5,000 Units 13:03: mouth 1 [...] (one) time 11 each day. Xifaxan 550 0 Yes 1{tbl} QD Take 1 UT MG tablet 7-07 tablet by Healt h 00:00: mouth 1 00 (one) time each day. rifaximin 0 Yes 550 mg = 1 Me moria 550 MG Oral 7-06 tab, PO, l Tablet 18:46: TID, # 42 Jake n [XIFAXAN] 00 tab, 2 Refill(s), Pharmacy: [facility], 154.94, cm, 12/24/20 10:43:00 CDT, Height, 71.818, kg, 12/24/20 10:43:00 CDT, Weight rifaximin 1-0 Yes 550 mg = 1 Me moria 550 MG Oral 7-06 tab, PO, l Tablet 18:46: TID, # 42 Jake n [XIFAXAN] 00 tab, 2 Refill(s), Pharmacy: [facility], 154.94, cm, 12/24/20 10:43:00 CDT, Height, 71.818, kg, 12/24/20 10:43:00 CDT, Weight rifaximin 1-0 Yes 550 mg = 1 Me moria 550 MG Oral 7-06 tab, PO, l Tablet 18:46: TID, # 42 Jake n [XIFAXAN] 00 tab, 2 Refill(s), Pharmacy: [facility], 154.94, cm, 12/24/20 10:43:00 CDT, Height, 71.818, kg, 12/24/20 10:43:00 CDT, Weight rifaximin 1-0 Yes 550 mg = 1 Me moria 550 MG Oral 7-06 tab, PO, l Tablet 18:46: TID, # 42 Jake n [XIFAXAN] 00 tab, 2 Refill(s), Pharmacy: [facility], 154.94, cm, 12/24/20 10:43:00 CDT, Height, 71.818, kg, 12/24/20 10:43:00 CDT, Weight rifaximin 1-0 Yes 550 mg = 1 Me moria 550 MG Oral 7-06 tab, PO, l Tablet 18:46: TID, # 42 Jake n [XIFAXAN] 00 tab, 2 Refill(s), Pharmacy: [facility], 154.94, cm, 12/24/20 10:43:00 CDT, Height, 71.818, kg, 12/24/20 10:43:00 CDT, Weight {2 (480 ML 2020-0 Yes See Memoria Magnesium 7-06 Instructio l Sulfate 18:12: ns, take Jake n 0.0277 00 as MEQ/ML / directed, potassium give sulfate clenpiq if 0.0374 not MEQ/ML / covered by sodium insurance, sulfate # 1 ea, 0 0.257 Refill(s), MEQ/ML Oral Pharmacy: Solution) } [facility] [Suprep 808, Bowel Prep [...] 0.257 Refill(s), MEQ/ML Oral Pharmacy: Solution) } [facility] [Suprep 808, Bowel Prep [...] Refill(s), MEQ/ML Oral Pharmacy: Solution) } [facility] [Suprep 808, Bowel Prep 154.94, Kit] [...] Refill(s), MEQ/ML Oral Pharmacy: Solution) } [facility] [Suprep 808, Bowel Prep 154.94, Kit] [...] 0.257 Refill(s), MEQ/ML Oral Pharmacy: Solution) } [facility] [Suprep 808, Bowel Prep 154.94, [...] # 90 tab, 3 Refill(s), Pharmacy: [facility], 154.94, cm, 12/24/20 10:43:00 CDT, Height, 71.818, kg, 12/24/20 10:43:00 CDT, Weight cyproheptad 2020-0 Yes 4 mg = 1 Me moria ine 4 mg 7-06 tab, PO, l oral tablet 18:10: TID, X 30 H ermann 00 day, # 90 tab, 3 Refill(s), Pharmacy: [facility], 154.94, cm, 12/24/20 10:43:00 CDT, Height, 71.818, kg, 12/24/20 10:43:00 CDT, Weight cyproheptad 2020-0 Yes 4 mg = 1 Me moria ine 4 mg 7-06 tab, PO, l oral tablet 18:10: TID, X 30 H [place] 00 day, # 90 tab, 3 Refill(s), Pharmacy: [facility], 154.94, cm, 12/24/20 10:43:00 CDT, Height, 71.818, kg, 12/24/20 10:43:00 CDT, Weight cyproheptad 2020-0 Yes 4 mg = 1 Me moria ine 4 mg 7-06 tab, PO, l oral tablet 18:10: TID, X 30 H ermann day, # 90 tab, 3 Refill(s), Pharmacy: [facility], 154.94, cm, 12/24/20 10:43:00 CDT, Height, 71.818, kg, 12/24/20 10:43:00 CDT, Weight cyproheptad 2020-0 Yes 4 mg = 1 Me moria ine 4 mg 7-06 tab, PO, l oral tablet 18:10: TID, X 30 H erm day, # 90 tab, 3 Refill(s), Pharmacy: [facility], 154.94, cm, 12/24/20 10:43:00 CDT, Height, 71.818, kg, 12/24/20 10:43:00 CDT, Weight Zinc 2020-0 Yes 140 mg, Memoria 7-06 PO, Daily, l 15:54: 0 [place] 00 Refill(s) Elderberry 0 Yes 0 Memoria preparation 7-06 Refill(s) l 15:54: [place] 00 Zinc 2020-0 Yes 140 mg, Memoria 7-06 PO, Daily, l 15:54: 0 [place] 00 Refill(s) Elderberry 2020-0 Yes 0 Memoria [...] Take 100 UT (Neurontin) 6-19 mg by [facility] 100 MG 00:00: mouth 1 capsule 00 (one) time each day. divalproex 2020-0 Yes 500mg Q.5D Take 500 UT (Depakote 6-19 mg by [facility]) 500 MG 00:00: mouth 2 24 hr 00 (two) tablet times a day. busPIRone 2020-0 Yes 7.5mg Q.5D Take 7.5 UT (Buspar) 6-19 mg by [facility] 7.5 MG 00:00: mouth 2 tablet 00 (two) times a day. buPROPion 0 Yes 300mg Take 300 UT XL 6-19 mg by [facility] (Wellbutrin 00:00: mouth 1 XL) [...] hr each day. tablet ascorbic Yes 500mg Q.91910189 Take 500 UT acid 5-15 [id number] mg by [facility] (Vitamin C) 00:00: 3D mouth 3 500 MG 00 (three) tablet times a day. sucralfate Yes 1{tbl} QD Take 1 UT (Carafate) 5-10 tablet by [facility] th 1 g tablet 00:00: mouth 1 00 (one) time each day. zinc 0 Yes DAILY [facility] sulfate 50 5-10 ity of mg zinc 00:00: [place] (220 mg) Medical capsule Branch ondansetron 0 Yes 4mg Take 4 mg U nivers 4 mg 4-13 by mouth ity of disintegrat [place]. [place] tablet 00 [facility] GLIPIZIDE 5 2020-0 Yes [id number] TAKE 1 [facility] mg tablet 4-06 TABLET [...] bedtime. Medical [facility] glipiZIDE 5 2019-06- No [id number] 5mg Take 1 [facility] mg tablet 07-01 tablet by ity of 00:00: 00:00 mouth [...] by ity of tablet 00:00: mouth at [place] [address] bedtime. Medical Branch erythromyci 2020- No [id number] .5[in_u Place 0.5 [facility] n 5 mg/gram [...] l 59 Center hydrALAZINE 2017-0 Yes 100mg Q.53725780 Take [address] [facility] (APRESOLINE 7-20 [id number] mg by L ukes ) 100 MG 15:20: 3D mouth 3 Medica l tablet 59 (three) Center times daily. magnesium 2017-0 Yes 400mg QD Take [address] [facility] oxide 7-20 mg by [facility] (MAG-OX) 15:20: mouth Medical 400 mg 59 daily. Center tablet metoclopram 2017- Yes 10mg Q.42505530 Take [address] [facility] gadiel HCl 7-20 [id number] by mouth 3 [facility] (REGLAN) 10 15:20: [...] l 59 Center hydrALAZINE 2017-0 Yes 100mg Q.41340471 Take [address] [facility] (APRESOLINE 7-20 [id number] mg by L ukes ) 100 MG 15:20: 3D mouth 3 Medica l tablet 59 (three) Center times daily. magnesium 2017- Yes 400mg QD Take [address] [facility] oxide 7-20 mg by [facility] (MAG-OX) 15:20: mouth Medical 400 mg 59 daily. Center tablet metoclopram 2017-0 Yes 10mg Q.45730999 Take [address] [facility] gadiel HCl 7-20 [id number] by mouth 3 [facility] (REGLAN) 10 15:20: [...] l 59 Center hydrALAZINE 2017-0 Yes 100mg Q.[id number] Take [address] [facility] (APRESOLINE 7-20 [id number] mg by L ukes ) 100 MG 15:20: 3D mouth 3 Medica l tablet 59 (three) Center times daily. magnesium 2017-0 Yes 400mg QD Take [address] [facility] oxide 7-20 mg by [facility] (MAG-OX) 15:20: mouth Medical 400 mg 59 daily. Center tablet metoclopram 2017-0 Yes 10mg Q.02538836 Take [address] [facility] gadiel HCl 7-20 [id number] by mouth 3 [facility] (REGLAN) 10 15:20: [...] l 59 Center hydrALAZINE 2017-0 Yes 100mg Q.55964161 Take [address] [facility] [address] (APRESOLINE 7-20 [id number] mg by L ukes ) 100 MG 15:20: 3D mouth 3 Medica l tablet 59 (three) Center times daily. magnesium 2017-0 Yes 400mg QD Take [address] oxide 7-20 mg by [facility] (MAG-OX) 15:20: mouth Medical 400 mg 59 daily. Center tablet metoclopram 2017-0 Yes 10mg Q.[id number] Take [address] [facility] gadiel HCl 7-20 [id number] by mouth 3 [facility] (REGLAN) 10 15:20: [...] l 59 Center hydrALAZINE 2017-0 Yes 100mg Q.09951437 Take [address] [facility] [address] (APRESOLINE 7-20 [id number] mg by L ukes ) 100 MG 15:20: 3D mouth 3 Medica l tablet 59 (three) Center times daily. magnesium 2017-0 Yes 400mg QD Take [address] oxide 7-20 mg by [facility] (MAG-OX) 15:20: mouth Medical 400 mg 59 daily. Center tablet metoclopram 2017-0 Yes 10mg Q.[id number] Take [address] [facility] gadiel HCl 7-20 [id number] by mouth 3 [facility] (REGLAN) 10 15:20: [...] l 59 Center hydrALAZINE 2017-0 Yes 100mg Q.[id number] Take [address] [facility] (APRESOLINE 7-20 [id number] mg by L ukes ) 100 MG 15:20: 3D mouth 3 Medica l tablet 59 (three) Center times daily. magnesium 2017-0 Yes 400mg QD Take [address] oxide 7-20 mg by [facility] (MAG-OX) 15:20: mouth Medical 400 mg 59 daily. Center tablet metoclopram 2017-0 Yes 10mg Q.88836597 Take [address] [facility] gadiel HCl 7-20 [id number] by mouth 3 [facility] (REGLAN) 10 15:20: [...] l 59 Center hydrALAZINE 2017-0 Yes 100mg Q.[id number] Take [address] [facility] [address] (APRESOLINE 7-20 [id number] mg by Misbah jc ) 100 MG 15:20: 3D mouth 3 Medica l tablet 59 (three) Center times daily. magnesium 2017-0 Yes 400mg QD Take [address] oxide 7-20 mg by [facility] (MAG-OX) 15:20: mouth Medical 400 mg 59 daily. Center tablet metoclopram 2017-0 Yes 10mg Q.90970148 Take [address] [facility] gadiel HCl 7-20 [id number] by mouth 3 [facility] (REGLAN) 10 15:20: [...] l 59 Center hydrALAZINE 2017- Yes 100mg Q.36073739 Take [address] [facility] (APRESOLINE 7-20 [id number] mg by L ukes ) 100 MG 15:20: 3D mouth 3 Medica l tablet 59 (three) Center times daily. magnesium 2017- Yes 400mg QD Take [address] oxide 7-20 mg by [facility] (MAG-OX) 15:20: mouth Medical 400 mg 59 daily. Center tablet metoclopram 2017- Yes 10mg Q.45151340 Take [address] [facility] gadiel HCl 7-20 [id number] by mouth 3 [facility] (REGLAN) 10 15:20: [...] l 59 Center hydrALAZINE 2017-0 Yes 100mg Q.[id number] Take [address] [facility] (APRESOLINE 7-20 [id number] mg by L ukes ) 100 MG 15:20: 3D mouth 3 Medica l tablet 59 (three) Center times daily. magnesium 2017-0 Yes 400mg QD Take [address] oxide 7-20 mg by [facility] (MAG-OX) 15:20: mouth Medical 400 mg 59 daily. Center tablet metoclopram 2017-0 Yes 10mg Q.[id number] Take [address] [facility] gadiel HCl 7-20 [id number] by mouth 3 [facility] (REGLAN) 10 15:20: [...] l 59 Center hydrALAZINE 2017-0 Yes 100mg Q.49810949 Take [address] [facility] (APRESOLINE 7-20 [id number] mg by L es ) 100 MG 15:20: 3D mouth 3 Medica l tablet 59 (three) Center times daily. magnesium 2017-0 Yes 400mg QD Take [address] [facility] oxide 7-20 [facility] (MAG-OX) 15:20: [facility] 400 mg 59 daily. Center tablet metoclopram 2017-0 Yes 10mg Q.[id number] Take [address] [facility] gadiel HCl 7-20 [id number] [facility] ([facility]) 10 15:20: [...] l 59 Center hydrALAZINE 2017-0 Yes 100mg Q.[id number] Take [address] [facility] (APRESOLINE 7-20 [id number] mg by L ukes ) 100 MG 15:20: 3D [facility] 3 [facility] 59 (three) Center times daily. magnesium 2017-0 Yes 400mg QD Take [address] [facility] oxide 7-20 [facility] (MAG-OX) 15:20: [facility] 400 mg 59 daily. Center tablet metoclopram 2017-0 Yes 10mg Q.[id number] Take [address] [facility] gadiel HCl 7-20 [id number] [facility] ([facility]) 10 15:20: [...] l 59 Center hydrALAZINE 2017-0 Yes 100mg Q.[id number] Take [address] [facility] (APRESOLINE 7-20 [id number] mg by L ukes ) 100 MG 15:20: 3D [facility] 3 [facility] 59 (three) Center times daily. magnesium 2017-0 Yes 400mg QD Take [address] [facility] oxide 7-20 [facility] (MAG-OX) 15:20: [facility] 400 mg 59 daily. Center tablet metoclopram 2017-0 Yes 10mg Q.[id number] Take [address] [facility] gadiel HCl 7-20 [id number] [facility] ([facility]) 10 15:20: [...] l 59 Center hydrALAZINE 2017-0 Yes 100mg Q.[id number] Take [address] [facility] (APRESOLINE 7-20 [id number] mg by L ukes ) 100 MG 15:20: 3D [facility] 3 [facility] 59 (three) Center times daily. magnesium 2017-0 Yes 400mg QD Take [address] [facility] oxide 7-20 [facility] (MAG-OX) 15:20: [facility] 400 mg 59 daily. Center tablet metoclopram 2017-0 Yes 10mg Q.[id number] Take [address] [facility] gadiel HCl 7-20 [id number] [facility] (REGLAN) 10 15:20: [...] l 59 [facility] hydrALAZINE 2017-0 Yes 100mg Q.[id number] Take [address] [facility] (APRESOLINE 7-20 [id number] mg by L ukes ) 100 MG 15:20: 3D mouth 3 Medica l tablet 59 (three) Center times daily. magnesium 2017-0 Yes 400mg QD Take [address] [facility] oxide 7-20 [facility] (MAG-OX) 15:20: mouth Medical 400 mg 59 daily. Center tablet metoclopram 2017-0 Yes 10mg Q.44821328 Take [address] [facility] gadiel HCl 7-20 [id number] by [facility] ([facility]) 10 15:20: [...] l [facility] Center hydrALAZINE 2017-0 Yes 100mg Q.[id number] Take [address] [facility] (APRESOLINE 7-20 [id number] mg by L ukes ) 100 MG 15:20: 3D mouth 3 Medica l tablet 59 (three) Center times daily. magnesium 2017-0 Yes 400mg QD Take [address] [facility] oxide 7-20 mg by [facility] (MAG-OX) 15:20: mouth Medical 400 mg 59 daily. Center tablet metoclopram 2017-0 Yes 10mg Q.82399733 Take [address] [facility] gadiel HCl 7-20 [id number] by [facility] (REGLAN) 10 15:20: [...] l [facility] Center hydrALAZINE 2017-0 Yes 100mg Q.[id number] Take [address] [facility] (APRESOLINE 7-20 [id number] mg by L ukes ) 100 MG 15:20: 3D mouth 3 Medica l tablet 59 (three) Center times daily. pantoprazol 2017-0 Yes 40mg QD Take [address] [facility] e 7-20 by [facility] (PROTONIX) 15:20: daily. Medic al 40 MG 59 Center tablet magnesium 20170 Yes 400mg QD Take [address] [facility] oxide 7-20 mg by [facility] (MAG-OX) 15:20: mouth Medical 400 mg 59 daily. Center tablet metoclopram 2017-0 Yes 10mg Q.36199111 Take [address] [facility] gadiel HCl 7-20 [id number] by [facility] (REGLAN) 10 15:20: [...] l 59 Center hydrALAZINE 2017-0 Yes 100mg Q.03477096 Take [address] [facility] (APRESOLINE 7-20 [id number] mg by L ukes ) 100 MG 15:20: 3D mouth 3 Medica l tablet 59 (three) Center times daily. magnesium 2017-0 Yes 400mg QD Take [address] [facility] oxide 7-20 mg by [facility] (MAG-OX) 15:20: mouth Medical 400 mg 59 daily. Center tablet metoclopram 2017-0 Yes 10mg Q.25010172 Take [address] [facility] gadiel HCl 7-20 [id number] by [facility] (REGLAN) 10 15:20: [...] needed for Nausea. hydrALAZINE 2017-0 Yes 100mg Q.67213314 Take [address] [facility] (APRESOLINE 7-20 [id number] mg by L ukes ) 100 MG [...] l 59 Center hydrALAZINE 2017-0 Yes 100mg Q.27818857 Take [address] [facility] (APRESOLINE 7-20 [id number] mg by L ukes ) 100 MG 15:20: 3D mouth 3 Medica l tablet 59 (three) Center times daily. magnesium 2017-0 Yes 400mg QD Take [address] [facility] oxide 7-20 mg [facility] (MAG-OX) 15:20: mouth Medical 400 mg 59 daily. Center tablet metoclopram 2017-0 Yes 10mg Q.49069392 Take [address] [facility] gadiel HCl 7-20 [id number] by [facility] (REGLAN) 10 15:20: [...] l [facility] Center hydrALAZINE 2017-0 Yes 100mg Q.39396127 Take [address] [facility] (APRESOLINE 7-20 [id number] mg by L ukes ) 100 MG 15:20: 3D mouth 3 Medica l tablet 59 (three) Center times daily. magnesium 2017-0 Yes 400mg QD Take [address] [facility] oxide 7-20 mg [facility] (MAG-OX) 15:20: mouth Medical 400 mg 59 daily. Center tablet metoclopram 2017-0 Yes 10mg Q.72073866 Take [address] [facility] gadiel HCl 7-20 [id number] by [facility] ([facility]GLAN) 10 15:20: [...] tablet 59 Center metoclopram 2017-0 Yes 10mg Q.02220739 Take [address] [facility] gadiel HCl 7-20 [id number] by [facility] (REGLAN) 10 15:20: [...] l 59 Center hydrALAZINE 2017-0 Yes 100mg Q.36578679 Take [address] [facility] [address] (APRESOLINE 7-20 [id number] mg by L ukes ) 100 MG 15:20: 3D mouth 3 Medica l tablet 59 (three) Center times daily. magnesium 2017-0 Yes 400mg QD Take [address] [facility] oxide 7-20 mg by [facility] (MAG-OX) 15:20: mouth Medical 400 mg 59 daily. Center tablet metoclopram 2017-0 Yes 10mg Q.19590971 Take [address] [facility] gadiel HCl 7-20 [id number] by [facility] ([facility]AN) 10 15:20: [...] l 59 Center hydrALAZINE 2017-0 Yes 100mg Q.[id number] Take [address] [facility] (APRESOLINE 7-20 [id number] mg by L ukes ) 100 MG 15:20: 3D mouth 3 Medica l tablet 59 (three) Center times daily. sertraline 2017-0 Yes anxiety QD Take by [facility] (ZOLOFT) 7-20 with [facility] 100 MG 15:20: depression daily. Med ical tablet 59 Center magnesium 2017-0 Yes 400mg QD Take [address] [facility] oxide 7-20 mg by [facility] (MAG-OX) 15:20: mouth Medical 400 mg 59 daily. Center tablet metoclopram 2017-0 Yes 10mg Q.00861087 Take [address] [facility] gadiel HCl 7-20 [id number] by mouth [facility] ([facility]GLAN) 10 15:20: [...] l 59 Center hydrALAZINE 2017-0 Yes 100mg Q.13795589 Take [address] [facility] (APRESOLINE 7-20 [id number] mg by L ukes ) 100 MG 15:20: 3D mouth 3 Medica l tablet 59 (three) Center times daily. magnesium 2017-0 Yes 400mg QD Take [address] [facility] oxide 7-20 mg by [facility] (MAG-OX) 15:20: mouth Medical 400 mg 59 daily. Center tablet metoclopram 2017- Yes 10mg Q.97324484 Take [address] [facility] gadiel HCl 7-20 [id number] by mouth 3 [facility] (REGLAN) 10 15:20: [...] l 59 Center hydrALAZINE 2017-0 Yes 100mg Q.55601623 Take [address] [facility] (APRESOLINE 7-20 [id number] mg by L ukes ) 100 MG 15:20: 3D mouth 3 Medica l tablet 59 (three) Center times daily. magnesium 2017- Yes 400mg QD Take [address] [facility] [address] oxide 7-20 mg [facility] (MAG-OX) 15:20: mouth Medical 400 mg 59 daily. Center tablet metoclopram 2017- Yes 10mg Q.95818944 Take [address] [facility] gadiel HCl 7-20 [id number] by mouth 3 [facility] ([facility]GLAN) 10 15:20: [...] l 59 Center hydrALAZINE 2017-0 Yes 100mg Q.[id number] Take [address] [facility] (APRESOLINE 7-20 [id number] mg by L ukes ) 100 MG 15:20: 3D mouth 3 Medica l tablet 59 (three) Center times daily. magnesium 2017-0 Yes 400mg QD Take [address] [facility] oxide 7-20 mg by [facility] (MAG-OX) 15:20: mouth Medical 400 mg 59 daily. Center tablet metoclopram 2017-0 Yes 10mg Q.65558018 Take [address] [facility] gadiel HCl 7-20 [id number] by mouth 3 [facility] (REGLAN) 10 15:20: [...] l 59 Center hydrALAZINE 2017-0 Yes 100mg Q.01012869 Take [address] [facility] (APRESOLINE 7-20 [id number] mg by L es ) 100 MG 15:20: 3D mouth 3 Medica l tablet 59 (three) Center times daily. magnesium 2017-0 Yes 400mg QD Take [address] [facility] oxide 7-20 mg [facility] (MAG-OX) 15:20: mouth Medical 400 mg 59 daily. Center tablet metoclopram 2017-0 Yes 10mg Q.65264658 Take [address] [facility] gadiel HCl 7-20 [id number] by mouth 3 [facility] (REGLAN) 10 15:20: [...] al 40 MG 59 Center tablet hydrALAZINE 2017-0 Yes 100mg Q.[id number] Take [address] [facility] (APRESOLINE 7-20 [id number] mg by L ukes ) 100 MG 15:20: 3D mouth 3 Medica l tablet 59 (three) Center times daily. magnesium 2017-0 Yes 400mg QD Take [address] [facility] oxide 7-20 mg by [facility] (MAG-OX) 15:20: mouth Medical 400 mg 59 daily. Center tablet metoclopram 2017-0 Yes 10mg Q.48448831 Take [address] [facility] gadiel HCl 7-20 [id number] by mouth [facility] ([facility]GL[facility]) 10 15:20: [...] Center hours as needed for Pain. amLODIPine 2017-0 Yes 10mg QD Take 10 [...] l 59 Center hydrALAZINE 2017-0 Yes 100mg Q.[id number] Take [address] [facility] (APRESOLINE 7-20 [id number] mg by L ukes ) 100 MG 15:20: 3D mouth 3 Medica l tablet 59 (three) Center times daily. magnesium 2017-0 Yes 400mg QD Take [address] [facility] oxide 7-20 mg by [facility] (MAG-OX) 15:20: mouth Medical 400 mg 59 daily. Center tablet metoclopram 2017-0 Yes 10mg Q.46516609 Take [address] [facility] gadiel HCl 7-20 [id number] by mouth [facility] ([facility]GL[facility]) 10 15:20: [...] Medical tablet 59 bipolar daily. Center disorder hydrALAZINE 2017-0 Yes 100mg Q.[id number] Take [address] [facility] (APRESOLINE 7-20 [id number] mg by Misbah jc ) 100 MG 15:20: 3D mouth 3 Medica l tablet 59 (three) Center times daily. ondansetron 2017-0 Yes 4mg Take 4 mg [...] l 59 Center hydrALAZINE 2017-0 Yes 100mg Q.77945543 Take [address] [facility] [address] (APRESOLINE 7-20 [id number] mg by L ukes ) 100 MG 15:20: 3D mouth 3 Medica l tablet 59 (three) Center times daily. magnesium 2017-0 Yes 400mg QD Take [address] [facility] oxide 7-20 mg [facility] (MAG-OX) 15:20: mouth Medical 400 mg 59 daily. Center tablet metoclopram 2017-0 Yes 10mg Q.89664645 Take [address] [facility] gadiel HCl 7-20 [id number] by mouth [facility] ([facility]GLAN) 10 15:20: [...] l 59 Center hydrALAZINE 2017-0 Yes 100mg Q.94990068 Take [address] [facility] (APRESOLINE 7-20 [id number] mg by L ukes ) 100 MG 15:20: 3D mouth 3 Medica l tablet 59 (three) Center times daily. magnesium 2017-0 Yes 400mg QD Take [address] [facility] oxide 7-20 mg by [facility] (MAG-OX) 15:20: mouth Medical 400 mg 59 daily. Center tablet metoclopram 2017-0 Yes 10mg Q.08850880 Take [address] [facility] gadiel HCl 7-20 [id number] by mouth 3 [facility] ([facility]) 10 15:20: 3D (three) Med ical MG tablet 59 times Center daily. meclizine 2017-0 Yes 12.5mg Take 12.[address] [facility] (ANTIVERT) 7-20 mg by [facility] 25 MG 15:20: mouth 3 Medical tablet 59 (three) Center times daily as needed. metoclopram 2017-0 Yes 10mg Q.52744004 Take [address] [facility] gadiel HCl 7-20 [id number] by mouth 3 [facility] ([facility]GL[facility]) 10 15:20: 3D (three) Med ical MG tablet 59 times Center daily. sertraline 2017-0 Yes anxiety QD Take by [...] l 59 Center hydrALAZINE 2017-0 Yes 100mg Q.51710597 Take [address] [facility] (APRESOLINE 7-20 [id number] mg by L ukes ) 100 MG 15:20: 3D mouth 3 Medica l tablet 59 (three) Center times daily. magnesium 2017-0 Yes 400mg QD Take [address] [facility] oxide 7-20 mg by [facility] (MAG-OX) 15:20: mouth Medical 400 mg 59 daily. Center tablet metoclopram 2017-0 Yes 10mg Q.49945541 Take [address] [facility] gadiel HCl 7-20 [id number] by mouth [facility] (REGLAN) 10 15:20: [...] l 59 Center hydrALAZINE 2017-0 Yes 100mg Q.31424325 Take [address] [facility] (APRESOLINE 7-20 [id number] mg by L es ) 100 MG 15:20: 3D mouth 3 Medica l tablet 59 (three) Center times daily. magnesium 2017-0 Yes 400mg QD Take [address] [facility] oxide 7-20 mg by [facility] (MAG-OX) 15:20: mouth Medical 400 mg 59 daily. Center tablet metoclopram 2017-0 Yes 10mg Q.43234658 Take [address] [facility] gadiel HCl 7-20 [id number] by mouth 3 [facility] (REGLAN) 10 15:20: [...] l 59 Center hydrALAZINE 2017-0 Yes 100mg Q.52790937 Take [address] [facility] (APRESOLINE 7-20 [id number] mg by L ukes ) 100 MG 15:20: 3D mouth 3 Medica l tablet 59 (three) Center times daily. magnesium 2017-0 Yes 400mg QD Take [address] [facility] oxide 7-20 mg by [facility] (MAG-OX) 15:20: mouth Medical 400 mg 59 daily. Center tablet metoclopram 2017-0 Yes 10mg Q.92141288 Take [address] [facility] gadiel HCl 7-20 [id number] by mouth [facility] (REGLAN) 10 15:20: [...] l 59 Center hydrALAZINE 2017-0 Yes 100mg Q.[id number] Take [address] [facility] (APRESOLINE 7-20 [id number] mg by L ukes ) 100 MG 15:20: 3D mouth 3 Medica l tablet 59 (three) Center times daily. magnesium 2017-0 Yes 400mg QD Take [address] [facility] oxide 7-20 mg by [facility] (MAG-OX) 15:20: mouth Medical 400 mg 59 daily. Center tablet metoclopram 2017-0 Yes 10mg Q.73118320 Take [address] [facility] gadiel HCl 7-20 [id number] by mouth [facility] (REGLAN) 10 15:20: [...] l 59 Center hydrALAZINE 2017-0 Yes 100mg Q.[id number] Take [address] [facility] (APRESOLINE 7-20 [id number] mg by L ukes ) 100 MG 15:20: 3D mouth 3 Medica l tablet 59 (three) Center times daily. magnesium 2017-0 Yes 400mg QD Take [address] [facility] oxide 7-20 mg by [facility] (MAG-OX) 15:20: mouth Medical 400 mg 59 daily. Center tablet metoclopram 2017-0 Yes 10mg Q.[id number] Take [address] [facility] gadiel HCl 7-20 [id number] by [facility] ([facility]GL[facility]) 10 15:20: [...] tab, PO, l Tablet 15:07: Daily, # [place] 00 30 tab, 0 Refill(s), Pharmacy: [place] [id number] Furosemide Yes 40 mg = 1 Me moria 40 MG Oral 2-09 tab, PO, l Tablet 15:07: Daily, # Vin 00 30 tab, 0 Refill(s), Pharmacy: [place] [id number] Furosemide Yes 40 mg = 1 Me moria 40 MG Oral 2-09 tab, PO, l Tablet 15:07: Daily, # Vin 00 30 tab, 0 Refill(s), Pharmacy: [place] [id number] Furosemide Yes 40 mg = 1 Me moria 40 MG Oral 2-09 tab, PO, l Tablet 15:07: Daily, # Vin 00 30 tab, 0 Refill(s), Pharmacy: [facility] Furosemide Yes 40 mg = 1 Me moria 40 MG Oral 2-09 tab, PO, l Tablet 15:07: Daily, # Vin 00 30 tab, 0 Refill(s), Pharmacy: [place] [id number] Bumex 2016-0 No 0.5 mg, Memoria 209 Route: PO, l 15:00: Drug form: [place] 00 TAB, Daily, Dosing Weight 92.273, kg, Start date: 07/30/16 9:00:00 C[employer]OMER SUPPORT ASSOCIATE, Duration: 30 day, Stop date: 08/28/16 9:00:00 CUSTOMER SUPPORT ASSOCIATE Bumex 2017-0 No 0.5 mg, Mem[facility] 209 Route: PO, l 15:00: Drug form: [place] 00 TAB, Daily, Dosing Weight 92.273, kg, Start date: 07/30/16 9:00:00 CUSTOMER SUPPORT ASSOCIATE, Duration: 30 day, Stop date: 08/28/16 9:00:00 CUSTOMER SUPPORT ASSOCIATE Bumex 2017-0 No 0.5 mg, [facility] 2-09 Route: PO, l 15:00: Drug form: [place] 00 TAB, Daily, Dosing Weight 92.273, kg, Start date: 07/30/16 9:00:00 CUSTOMER SUPPORT ASSOCIATE, Duration: 30 day, Stop date: 08/28/16 9:00:00 CUSTOMER SUPPORT ASSOCIATE Bumex 2017-0 No 0.5 mg, [facility] 2-09 Route: PO, l 15:00: Drug form: Vin 00 TAB, Daily, Dosing Weight 92.273, kg, Start date: 07/30/16 9:00:00 CUSTOMER SUPPORT ASSOCIATE, Duration: 30 day, Stop date: 08/28/16 9:00:00 CUSTOMER SUPPORT ASSOCIATE Bumex 2017-0 No 0.5 mg, [facility] 2-09 Route: PO, l 15:00: Drug form: Vin 00 TAB, Daily, Dosing Weight 92.273, kg, Start date: 07/30/16 9:00:00 CUSTOMER SUPPORT ASSOCIATE, Duration: 30 day, Stop date: 08/28/16 9:00:00 CUSTOMER SUPPORT ASSOCIATE Lasix No Notes: [facility] 2-08 (Same as: l 20:05: Lasix) May Vin 00 cause GI upset. Give with food or milk. Lasix No Notes: [facility] 2-08 (Same as: l 20:05: Lasix) May [place] 00 cause GI upset. Give with food or milk. Lasix No Notes: [facility] 2-08 (Same as: l 20:05: Lasix) May [place] 00 cause GI upset. Give with food or milk. Lasix No Notes: [facility] 2-08 (Same as: l 20:05: Lasix) May Vin 00 cause GI upset. Give with food or milk. Lasix No Notes: [facility] 2-08 (Same as: l 20:05: Lasix) May [place] 00 cause GI upset. Give with food or milk. Hydralazine No Notes: Mendoza janice 2-08 (Same as: l 06:05: Apresoline Vin ) Push over 5 minutes Hydralazine No Notes: Mendoza janice 2-08 (Same as: l 06:05: Apresoline Vin ) Push over 5 minutes Hydralazine 2017-0 No Notes: Mendoza janice 2-08 (Same as: l 06:05: Apresoline [place] 00 ) Push over 5 minutes Hydralazine 2017-0 No Notes: Mendoza janice 2-08 (Same as: l 06:05: Apresoline [place] 00 ) Push over 5 minutes Hydralazine [...] Total Volume: 1,000, Start date: 07/26/16 12:26:00 C[employer]OMER SUPPORT ASSOCIATE, Duration: 30 day, Stop date: 08/25/16 12:25:00 CUSTOMER SUPPORT ASSOCIATE sodium 2017-0 No 1,000 mL, Memori a chloride 2-05 Rate: 125 l 0.9% 1000 18:26: ml/hr, Jake n ml INJ 00 Infuse 1,000 mL over: 8 hr, Route: IV, Dosing Weight 92.273 kg, Total Volume: 1,000, Start date: 07/26/16 12:26:00 CUSTOMER SUPPORT ASSOCIATE, Duration: 30 day, Stop date: 08/25/16 12:25:00 CUSTOMER SUPPORT ASSOCIATE sodium 2017-0 No 1,000 mL, Memori a chloride 2-05 Rate: 125 l 0.9% 1000 18:26: ml/hr, Jake n ml INJ 00 Infuse 1,000 mL over: 8 hr, Route: IV, Dosing Weight 92.273 kg, Total Volume: 1,000, Start date: 07/26/16 12:26:00 CUSTOMER SUPPORT ASSOCIATE, Duration: 30 day, Stop date: 08/25/16 12:25:00 CUSTOMER SUPPORT ASSOCIATE sodium 2017-0 No 1,000 mL, Memori a chloride 2-05 Rate: 125 l 0.9% 1000 18:26: ml/hr, Jake n ml INJ 00 Infuse 1,000 mL over: 8 hr, Route: IV, Dosing Weight 92.273 kg, Total Volume: 1,000, Start date: 07/26/16 12:26:00 CUSTOMER SUPPORT ASSOCIATE, Duration: 30 day, Stop date: 08/25/16 12:25:00 CUSTOMER SUPPORT ASSOCIATE sodium 2017-0 No 1,000 mL, Memori a chloride 2-05 Rate: 125 l 0.9% 1000 18:26: ml/hr, Jake n ml INJ 00 Infuse 1,000 mL over: 8 hr, Route: IV, Dosing Weight 92.273 kg, Total Volume: 1,000, Start date: 07/26/16 12:26:00 CUSTOMER SUPPORT ASSOCIATE, Duration: 30 day, Stop date: 08/25/16 12:25:00 CUSTOMER SUPPORT ASSOCIATE Sodium 2017-0 No 500 mL, Memoria Chloride 2-05 500 ml/hr, l 0.154 13:30: Infuse Vin MEQ/ML 00 Over: 1 Injectable hr, Route: Solution IV, 500, Drug form: INJ, ONCE, Priority: STAT, Dosing Weight 92.273 kg, Start date: 07/26/16 7:30:00 CUSTOMER SUPPORT ASSOCIATE, Duration: 1 doses or times, Stop date: 07/26/16 7:30:00 CUSTOMER SUPPORT ASSOCIATE Sodium 2017-0 No 500 mL, Memoria Chloride 2-05 500 ml/hr, l 0.154 13:30: Infuse [place] MEQ/ML 00 Over: 1 Injectable hr, Route: Solution IV, 500, Drug form: INJ, ONCE, Priority: STAT, Dosing Weight 92.273 kg, Start date: 07/26/16 7:30:00 CUSTOMER SUPPORT ASSOCIATE, Duration: 1 doses or times, Stop date: 07/26/16 7:30:00 CUSTOMER SUPPORT ASSOCIATE Sodium 2017-0 No 500 mL, [facility] Chloride 2-05 500 ml/hr, l 0.154 13:30: Infuse Vin MEQ/ML 00 Over: 1 Injectable hr, Route: Solution IV, 500, Drug form: INJ, ONCE, Priority: STAT, Dosing Weight 92.273 kg, Start date: 07/26/16 7:30:00 CUSTOMER SUPPORT ASSOCIATE, Duration: 1 doses or times, Stop date: 07/26/16 7:30:00 CUSTOMER SUPPORT ASSOCIATE Sodium 2017-0 No 500 mL, [facility] Chloride 2-05 500 ml/hr, l 0.154 13:30: Infuse Vin MEQ/ML 00 Over: 1 Injectable hr, Route: Solution IV, 500, Drug form: INJ, ONCE, Priority: STAT, Dosing Weight 92.273 kg, Start date: 07/26/16 7:30:00 CUSTOMER SUPPORT ASSOCIATE, Duration: 1 doses or times, Stop date: 07/26/16 7:30:00 CUSTOMER SUPPORT ASSOCIATE Sodium 2017-0 No 500 mL, [facility] Chloride 2-05 500 ml/hr, l 0.154 13:30: Infuse Vin MEQ/ML 00 Over: 1 Injectable hr, Route: Solution IV, 500, Drug form: INJ, ONCE, Priority: STAT, Dosing Weight 92.273 kg, Start date: 07/26/16 7:30:00 CUSTOMER SUPPORT ASSOCIATE, Duration: 1 doses or times, Stop date: 07/26/16 7:30:00 CUSTOMER SUPPORT ASSOCIATE Insulin 2017-0 No 60 units) Mendoza janice regular 2- WASTE: F/P l 08:39: - Black; E Vin 00 - Municipal Trash Bin Stable for 28 days at room temperatur e Expires in days from ____Date Insulin 2017-0 No 60 units) Mendoza janice regular 2- WASTE: F/P l 08:39: - Black; E [place] 00 - Municipal Trash Bin Stable for 28 days at room temperatur e Expires in days from ____Date Insulin 2017-0 No 60 units) Mendoza janice regular 2-04 WASTE: F/P l 08:39: - Black; E [place] 00 - Municipal Trash Bin Stable for [...] WASTE: F/P l 08:39: - Black; E [place] 00 - Municipal Trash Bin Stable for 28 days at room temperatur e Expires in days from ____Date Insulin, 2017-0 No Notes: Memoria Aspart, 2-04 Roll in l Human 07:31: palms of [place] 00 hands gently; Do not shake vigorously [...] Roll in l Human 07:31: palms of [place] 00 hands gently; Do not shake vigorously [...] Roll in l Human 05:42: palms of [place] 00 hands gently; Do not shake vigorously . (Same as: NovoLOG) "single patient use only" WASTE: F/P - Black; E - Municipal Trash Bin Stable for 28 days at room temperatur e. Expires in days from ____Date Insulin, No Notes: Memoria Aspart, 2-04 Roll in l Human 05:42: palms of [place] 00 hands gently; Do not shake vigorously . (Same as: NovoLOG) "single patient use only" WASTE: F/P - Black; E - Municipal Trash Bin Stable for 28 days at room temperatur e. Expires in days from ____Date Insulin, No Notes: Memoria Aspart, 2-04 Roll in l Human 03:28: palms of [place] 00 hands gently; Do not shake vigorously [...] Roll in l Human 03:28: palms of [place] 00 hands gently; Do not shake vigorously [...] Roll in l Human 03:28: palms of [place] 00 hands gently; Do not shake vigorously . (Same as: NovoLOG) "single patient use only" WASTE: F/P - Black; E - Municipal Trash Bin Stable for 28 days at room temperatur e. Expires in days from ____Date atorvastati No Notes: Mendoza jnaice n 2-04 (Same as: l 03:00: Lipitor) [...] sodium 2-04 (Same as: l 03:00: Depakote [place] 00 ER) Once daily dosing; indicated for [...] Memoria 2- (Same as: l 22:00: Lasix) [place] 00 MEDICATION WASTE Product Size: 40 mg Product Wasted: ___ mg Lasix No Notes: Memoria 2- (Same as: l 22:00: Lasix) [place] 00 MEDICATION WASTE Product Size: 40 mg Product Wasted: ___ mg Lasix No Notes: Memoria 2- (Same as: l 22:00: Lasix) Vin 00 MEDICATION WASTE Product Size: 40 mg Product Wasted: ___ mg Lasix No Notes: Memoria 2- (Same as: l 22:00: Lasix) [place] 00 MEDICATION WASTE Product Size: 40 mg [...] janice 2-03 acetaminop l 21:52: hen = [place] 00 4000mg/day (4 gm/day). (Same as: Tylenol) Bupropion No 150 mg, 1 Mem oria 2-03 tab, l 15:00: Route: PO, [place] Drug form: ERTAB, Daily, Dosing Weight 92.273, kg, Start date: 07/24/16 9:00:00 CUSTOMER SUPPORT ASSOCIATE, Duration: 30 day, Stop date: 08/22/16 9:00:00 CUSTOMER SUPPORT ASSOCIATE 24 HR No Notes: Memoria Divalproex 2-03 (Same as: l Sodium 500 15:00: Depakote Her braden MG Extended 00 ER) Release Tablet [Depakote] gabapentin No Notes: Memor ia 300 MG Oral 2-03 (Same as: l Capsule 15:00: Neurontin) Herm naeem Aspirin 81 No Notes: Memor ia MG Chewable 2-03 Take with l Tablet 15:00: food. [place] 00 Lasix No Notes: Memoria 2-03 (Same as: l 15:00: Lasix) [place] MEDICATION WASTE Product Size: 40 mg Product [...] form: ERTAB, Daily, Start date: 07/24/16 9:00:00 CUSTOMER SUPPORT ASSOCIATE, Duration: 30 day, Stop date: 08/22/16 9:00:00 CUSTOMER SUPPORT ASSOCIATE Insulin No Notes: Memoria Glargine 2-03 Same [...] oria 2-03 tab, l 15:00: Route: PO, [place] Drug form: ERTAB, Daily, Dosing Weight 92.273, kg, Start date: 07/24/16 9:00:00 CUSTOMER SUPPORT ASSOCIATE, Duration: 30 day, Stop date: 08/22/16 9:00:00 CUSTOMER SUPPORT ASSOCIATE 24 HR No Notes: Memoria Divalproex 2-03 [...] form: ERTAB, Daily, Start date: 07/24/16 9:00:00 CUSTOMER SUPPORT ASSOCIATE, Duration: 30 day, Stop date: 08/22/16 9:00:00 CUSTOMER SUPPORT ASSOCIATE Insulin No Notes: Memoria Glargine 2-03 Same [...] Weight 92.273, kg, Start date: 07/24/16 9:00:00 CUSTOMER SUPPORT ASSOCIATE, Duration: 30 day, Stop date: 08/22/16 9:00:00 CUSTOMER SUPPORT ASSOCIATE 24 HR No Notes: Memoria Divalproex 2-03 (Same as: l Sodium 500 15:00: Depakote Her braden MG Extended 00 ER) Release Tablet [Depakote] gabapentin No Notes: Memor ia 300 MG Oral 2-03 (Same as: l Capsule 15:00: Neurontin) Herm naeem Aspirin 81 No Notes: Memor ia MG Chewable 2-03 Take with l Tablet 15:00: food. [place] 00 Lasix No Notes: Memoria 2-03 (Same as: l 15:00: Lasix) Vin 00 MEDICATION WASTE Product Size: 40 mg Product Wasted: ___ mg Zoloft No Notes: Memoria 2-03 (Same as: l 15:00: Zoloft) [place] Protonix No Notes: Memoria 2-03 Tablet l 15:00: should not Vin 00 be chewed or crushed. (Same as: Protonix) metoprolol No 100 mg, 2 Me moria extended 2-03 tab, l release 15:00: Route: PO, Herm naeem Drug form: ERTAB, Daily, Start date: 07/24/16 9:00:00 CUSTOMER SUPPORT ASSOCIATE, Duration: 30 day, Stop date: 08/22/16 9:00:00 CUSTOMER SUPPORT ASSOCIATE Insulin No Notes: Memoria Glargine 2-03 Same [...] Weight 92.273, kg, Start date: 07/24/16 9:00:00 CUSTOMER SUPPORT ASSOCIATE, Duration: 30 day, Stop date: 08/22/16 9:00:00 CUSTOMER SUPPORT ASSOCIATE 24 HR No Notes: Memoria Divalproex 2-03 [...] Memoria 2-03 (Same as: l 15:00: Lasix) [place] 00 MEDICATION WASTE Product Size: 40 mg Product Wasted: ___ mg Zoloft No Notes: Memoria 2-03 (Same as: l 15:00: Zoloft) [place] Protonix No Notes: Memoria 2-03 Tablet l 15:00: should not [place] 00 be chewed or crushed. (Same as: Protonix) metoprolol No 100 mg, 2 Me moria extended 2-03 tab, l release 15:00: Route: PO, Herm naeem Drug form: ERTAB, Daily, Start date: 07/24/16 9:00:00 CUSTOMER SUPPORT ASSOCIATE, Duration: 30 day, Stop date: 08/22/16 9:00:00 CUSTOMER SUPPORT ASSOCIATE Insulin No Notes: Memoria Glargine 2-03 Same [...] Weight 92.273, kg, Start date: 07/24/16 9:00:00 CUSTOMER SUPPORT ASSOCIATE, Duration: 30 day, Stop date: 08/22/16 9:00:00 CUSTOMER SUPPORT ASSOCIATE 24 HR No Notes: Memoria Divalproex 2-03 [...] form: ERTAB, Daily, Start date: 07/24/16 9:00:00 CUSTOMER SUPPORT ASSOCIATE, Duration: 30 day, Stop date: 08/22/16 9:00:00 CUSTOMER SUPPORT ASSOCIATE Insulin No Notes: Memoria Glargine 2-03 Same [...] janice 2-03 (Same as: l 14:50: Zofran) [place] 00 MEDICATION WASTE Product Size: 4 mg Product Wasted: ___ mg Morphine No Notes: Memoria 2-03 (Same l 14:50: as:MORPhin [place] 00 e Sulfate) Ondansetron No Notes: Mendoza janice 2-03 (Same as: l 14:50: Zofran) [place] 00 MEDICATION WASTE Product Size: 4 mg Product Wasted: ___ mg Morphine No Notes: Memoria 2-03 (Same l 14:50: as:MORPhin [place] 00 e Sulfate) Ondansetron No Notes: [place]endoza [...] Notes: Memoria 2-03 (Same l 14:50: as:MORPhin [place] 00 e Sulfate) Ondansetron No Notes: Mendoza [...] Roll in l Human 13:30: palms of [place] 00 hands gently; Do not shake vigorously [...] Roll in l Human 13:30: palms of [place] 00 hands gently; Do not shake vigorously . (Same as: NovoLOG) "single patient use only" WASTE: F/P - Black; E - Municipal Trash Bin Stable for 28 days at room temperatur e. Expires in days from ____Date Dilaudid 2016- No Notes: Memoria 2-03 Same as l 11:28: Dilaudid [place] 00 Dilaudid No Notes: Memoria 2-03 Same as l 11:28: Dilaudid [place] 00 Dilaudid No Notes: Memoria 2-03 Same as l 11:28: Dilaudid [place] Dilaudid No Notes: Memoria 2-03 Same as l 11:28: Dilaudid [place] 00 Dilaudid 2017-0 No Notes: Memoria 2-03 Same as l 11:28: Dilaudid Vin 00 Insulin, 2017-0 No Notes: [facility] Aspart, 2-03 Roll in l Human 08:40: palms of [place] 00 hands gently; Do not shake vigorously . (Same as: NovoLOG) "single patient use only" WASTE: F/P - Black; E - Municipal Trash Bin Stable for 28 days at room temperatur e. Expires in days from ____Date Glucagon 2017-0 No 1 mg, Memoria 2-03 Route: IM, l 08:40: Drug form: [place] 00 PDR/INJ, PRN, Dosing Weight 92.273, kg, PRN Blood Glucose Results, Start date: 07/24/16 2:40:00 CUSTOMER SUPPORT ASSOCIATE, Duration: 30 day, Stop date: 08/23/16 2:39:00 CUSTOMER SUPPORT ASSOCIATE Dextrose 2016-0 No 25 gm, 50 [place] janice 50% Syringe 2-03 mL, Route: l 08:40: IVP, Drug Vin 00 Form: INJ, Dosing Weight 92.273, kg, PRN, PRN Blood Glucose Results, Start date: 07/24/16 2:40:00 CUSTOMER SUPPORT ASSOCIATE, Duration: 30 day, Stop date: 08/23/16 2:39:00 CUSTOMER SUPPORT ASSOCIATE Insulin, 2017-0 No Notes: [facility] Aspart, 2-03 [...] 2-03 Route: IM, l 08:40: Drug form: [place] 00 PDR/INJ, PRN, Dosing Weight 92.273, kg, PRN Blood Glucose Results, Start date: 07/24/16 2:40:00 CUSTOMER SUPPORT ASSOCIATE, Duration: 30 day, Stop date: 08/23/16 2:39:00 CUSTOMER SUPPORT ASSOCIATE Dextrose 2016-0 No 25 gm, 50 [place]endo[place] janice 50% Syringe 2-03 mL, Route: l 08:40: IVP, Drug Vin 00 Form: INJ, Dosing Weight 92.273, kg, PRN, PRN Blood Glucose Results, Start date: 07/24/16 2:40:00 CUSTOMER SUPPORT ASSOCIATE, Duration: 30 day, Stop date: 08/23/16 2:39:00 CUSTOMER SUPPORT ASSOCIATE Insulin, 2017-0 No Notes: [facility] Aspart, 2-03 Roll in l Human 08:40: palms of [place] 00 hands gently; Do not shake vigorously [...] Blood Glucose Results, Start date: 07/24/16 2:40:00 CUSTOMER SUPPORT ASSOCIATE, Duration: 30 day, Stop date: 08/23/16 2:39:00 CUSTOMER SUPPORT ASSOCIATE Dextrose 2017-0 No 25 gm, 50 Mendoza janice 50% Syringe 2-03 mL, Route: l 08:40: IVP, Drug [place] 00 Form: INJ, Dosing Weight 92.273, kg, PRN, PRN Blood Glucose Results, Start date: 07/24/16 2:40:00 CUSTOMER SUPPORT ASSOCIATE, Duration: 30 day, Stop date: 08/23/16 2:39:00 CUSTOMER SUPPORT ASSOCIATE Insulin, 2017-0 No Notes: [facility] Aspart, 2-03 Roll in l Human 08:40: palms of [place] 00 hands gently; Do not shake vigorously . (Same as: NovoLOG) "single patient use only" WASTE: F/P - Black; E - Municipal Trash Bin Stable for 28 days at room temperatur e. Expires in days from ____Date Glucagon 2017-0 No 1 mg, Memoria 2-03 Route: IM, l 08:40: Drug form: [place] 00 PDR/INJ, PRN, Dosing Weight 92.273, kg, PRN Blood Glucose Results, Start date: 07/24/16 2:40:00 CUSTOMER SUPPORT ASSOCIATE, Duration: 30 day, Stop date: 08/23/16 2:39:00 CUSTOMER SUPPORT ASSOCIATE Dextrose No 25 gm, 50 Menodza janice 50% Syringe 2-03 mL, Route: l 08:40: IVP, Drug Vin 00 Form: INJ, Dosing Weight 92.273, kg, PRN, PRN Blood Glucose Results, Start date: 07/24/16 2:40:00 CUSTOMER SUPPORT ASSOCIATE, Duration: 30 day, Stop date: 08/23/16 2:39:00 CUSTOMER SUPPORT ASSOCIATE Insulin, No Notes: [facility] Aspart, 2-03 Roll in l Human 08:40: palms of [place] 00 hands gently; Do not shake vigorously [...] Blood Glucose Results, Start date: 07/24/16 2:40:00 CUSTOMER SUPPORT ASSOCIATE, Duration: 30 day, Stop date: 08/23/16 2:39:00 CUSTOMER SUPPORT ASSOCIATE Dextrose No 25 gm, 50 Mendoza janice 50% Syringe 2-03 mL, Route: l 08:40: IVP, Drug Form: INJ, Dosing Weight 92.273, kg, PRN, PRN Blood Glucose Results, Start date: 07/24/16 2:40:00 CUSTOMER SUPPORT ASSOCIATE, Duration: 30 day, Stop date: 08/23/16 2:39:00 CUSTOMER SUPPORT ASSOCIATE Docusate No Notes: Memoria 2-03 (Same as: l 07:20: Colace) Vin 00 (Do Not Crush) Ondansetron No Notes: Mendoza janice 2-03 (Same as: l 07:20: Zofran) [place] 00 MEDICATION WASTE Product Size: 4 mg Product Wasted: ___ mg Docusate No Notes: Memoria 2-03 (Same as: l 07:20: Colace) [place] 00 (Do Not Crush) Ondansetron 2017-0 No Notes: Mendoza janice 2-03 (Same as: l 07:20: Zofran) [place] 00 MEDICATION WASTE Product Size: 4 mg Product Wasted: ___ mg Docusate 2017-0 No Notes: Memoria 2- (Same as: l 07:20: Colace) [place] 00 (Do Not Crush) Ondansetron 2017-0 No Notes: Mendoza janice 2-03 (Same as: l 07:20: Zofran) Vin 00 MEDICATION WASTE Product Size: 4 mg Product Wasted: ___ mg Docusate 2017-0 No Notes: Memoria 2- (Same as: l 07:20: Colace) [place] 00 (Do Not Crush) Ondansetron 2017-0 No Notes: Mendoza janice 2- (Same as: l 07:20: Zofran) [place] 00 MEDICATION WASTE Product Size: 4 mg Product Wasted: ___ mg Docusate 2017-0 No Notes: Memoria 2- (Same as: l 07:20: Colace) Vin 00 (Do Not Crush) Ondansetron 2017-0 No Notes: Mendoza janice 2- (Same as: l 07:20: Zofran) [place] 00 MEDICATION WASTE Product Size: 4 mg Product Wasted: ___ mg Lasix 2017-0 No Notes: Memoria 2- (Same as: l 06:01: Lasix) Vin 00 MEDICATION WASTE Product Size: 40 mg Product Wasted: ___ mg Lasix 2017-0 No Notes: Memoria 2- (Same as: l 06:01: Lasix) Vin 00 MEDICATION WASTE Product Size: 40 mg Product Wasted: ___ mg Lasix 2017-0 No Notes: Memoria 2- (Same as: l 06:01: Lasix) [place] 00 MEDICATION WASTE Product Size: 40 mg Product Wasted: ___ mg Lasix 2017-0 No Notes: Memoria 2- (Same as: l 06:01: Lasix) Vin 00 MEDICATION WASTE Product Size: 40 mg Product Wasted: ___ mg Lasix No Notes: Memoria 2-03 (Same as: l 06:01: Lasix) [place] 00 MEDICATION WASTE Product Size: 40 mg [...] a 0.833 MG/ML - (Same as: l 04:09: Duoneb) Vin Ipratropium 00 [place] 0.167 MG/ML Inhalant Solution [DuoNeb] Albuterol No Notes: Memori a 0.833 MG/ML 2-03 (Same as: l / 04:09: Duoneb) Vin Ipratropium 00 [place] 0.167 MG/ML Inhalant Solution [DuoNeb] Albuterol No Notes: Memori a 0.833 MG/ML 2- (Same as: l / 04:09: Duoneb) Vin Ipratropium 00 [place] 0.167 MG/ML Inhalant Solution [DuoNeb] Albuterol No Notes: Memori a 0.833 MG/ML - (Same as: :09: Duoneb) Vin Ipratropium 00 [place] 0.167 MG/ML Inhalant Solution [DuoNeb] Albuterol No Notes: Memori a 0.833 MG/ML 2- (Same as: 04:09: Duoneb) Vin Ipratropium 00 [place] 0.167 MG/ML Inhalant Solution [DuoNeb] Furosemide 2015-06 Yes 80 mg = 2 Me moria 40 MG Oral 2-26 tab, PO, l Tablet 16:34: BID, # 120 Nidia nn 00 tab, 0 Refill(s) atorvastati 2015-06 Yes 40 mg = 1 M emoria n 40 mg 2-26 tab, PO, l oral tablet 16:34: Bedtime, # [place] 00 30 tab, 0 Refill(s) Insulin 2015-06 [...] tab, PO, l Tablet 16:34: Daily, # [place] 00 30 tab, 0 Refill(s) Hydroxyzine 2015-06 Yes 50 mg = 1 M emoria Hydrochlori 2-26 cap, PO, l de 50 MG 16:34: TID, X 30 Herm naeem Oral 00 day, # 90 Capsule cap, 0 Refill(s) losartan 25 2015-06 Yes 25 mg = 1 M emoria mg oral 2-26 tab, PO, l tablet 16:34: Daily, # [place] 00 30 tab, 0 Refill(s) Furosemide 2015-06 Yes 80 mg = 2 Me moria 40 MG Oral 2-26 tab, PO, l Tablet 16:34: BID, # 120 Nidia nn 00 tab, 0 Refill(s) atorvastati 2015-06 Yes 40 mg = 1 M emoria n 40 mg 2-26 tab, PO, l oral tablet 16:34: Bedtime, # [place] 00 30 tab, 0 Refill(s) Insulin 2015-06 [...] tab, PO, l Tablet 16:34: Daily, # [place] 00 30 tab, 0 Refill(s) Hydroxyzine 2015-06 Yes 50 mg = 1 M emoria Hydrochlori 2-26 cap, PO, l de 50 MG 16:34: TID, X 30 Herm naeem Oral 00 day, # 90 Capsule cap, 0 Refill(s) losartan 25 2015-06 Yes 25 mg = 1 M emoria mg oral 2-26 tab, PO, l tablet 16:34: Daily, # [place] 00 30 tab, 0 Refill(s) Furosemide 2015-06 Yes 80 mg = 2 Me moria 40 MG Oral 2-26 tab, PO, l Tablet 16:34: BID, # 120 Nidia nn 00 tab, 0 Refill(s) atorvastati 2015-06 Yes 40 mg = 1 M emoria n 40 mg 2-26 tab, PO, l oral tablet 16:34: Bedtime, # [place] 00 30 tab, 0 Refill(s) Insulin 2015-06 [...] tab, PO, l Tablet 16:34: Daily, # [place] 00 30 tab, 0 Refill(s) Hydroxyzine 2015-06 Yes 50 mg = 1 M emoria Hydrochlori 2-26 cap, PO, l de 50 MG 16:34: TID, X 30 Herm naeem Oral 00 day, # 90 Capsule cap, 0 Refill(s) losartan 25 2015-06 Yes 25 mg = 1 M emoria mg oral 2-26 tab, PO, l tablet 16:34: Daily, # [place] 00 30 tab, 0 Refill(s) Furosemide 2015-06 [...] INHALATION l 0.09 16:34: , PRN, PRN [place] MG/ACTUAT 00 as needed Metered for Dose wheezing, Inhaler use as needed for shortness of breath or wheezing, # 8 gm, 0 Refill(s) Aspirin 81 2015-06 Yes 81 mg = 1 Me moria MG Chewable 2-26 tab, PO, l Tablet 16:34: Daily, # [place] 00 30 tab, 0 Refill(s) Hydroxyzine 2015-06 [...] 2-26 (Same as: l 15:00: Lasix) October [place] 00 cause GI upset. Give with food [...] l 13:36: Mag-Ox Vin 400) Magnesium oxide 138ny=363j g elemental magnesium Dose=____m g magnesium oxide (___mg elemental magnesium) Magnesium 2015-06 No Notes: Memori a Oxide 2-24 (Same as: l 13:36: Mag-Ox [place] 400) Magnesium oxide 681wm=659f g elemental magnesium Dose=____m g magnesium oxide (___mg elemental magnesium) Magnesium 2015-06 No Notes: Memori a Oxide 2-24 (Same as: l 13:36: Mag-Ox [place] 400) Magnesium oxide 221zo=902a g elemental magnesium Dose=____m g magnesium oxide (___mg elemental magnesium) Magnesium 2015-06 No Notes: Memori a Oxide 2-24 (Same as: l 13:36: Mag-Ox [place] 400) Magnesium oxide 083qp=153d g elemental magnesium Dose=____m g magnesium oxide (___mg elemental magnesium) Magnesium 2015-06 No Notes: Memori a Oxide 2-24 (Same as: l 13:36: Mag-Ox Vin 400) Magnesium oxide 926qp=040h g elemental magnesium Dose=____m g magnesium oxide (___mg elemental magnesium) Magnesium 2015-06 No Notes: Memori a Oxide 2-24 (Same as: l 09:47: Mag-Ox Vin 400) Magnesium oxide 581gg=041a g elemental magnesium Dose=____m g magnesium oxide (___mg elemental magnesium) Magnesium 2015-06 No Notes: Memori a Oxide 2-24 (Same as: l 09:47: Mag-Ox [place] 400) Magnesium oxide 520an=900p g elemental magnesium Dose=____m g magnesium oxide (___mg elemental magnesium) Magnesium 2015-06 No Notes: Memori a Oxide 2-24 (Same as: l :47: [facility]- [place] 400) Magnesium oxide 514xe=784h g elemental magnesium Dose=____m g magnesium oxide (___mg elemental magnesium) Magnesium 2015-06 No Notes: Memori a Oxide 2-24 (Same as: l :47: [facility]- [place] 400) Magnesium oxide 111qf=288n g elemental magnesium Dose=____m g magnesium oxide (___mg elemental magnesium) Magnesium 2015-06 No Notes: Memori a Oxide 2-24 (Same as: l :47: [facility]- [place] 400) Magnesium oxide 608tn=823i g elemental magnesium Dose=____m g magnesium oxide [...] Memoria 2-24 (Same as: l 00:00: Norvasc) [place] 00 Wellbutrin 2015-06 No Notes: Memor ia XL 2-24 (Same as: l 00:00: Wellbutrin [place] 00 XL) "Do Not Crush" Norvasc 2015-06 No Notes: Memoria 2-24 (Same as: l 00:00: Norvasc) [place] 00 Wellbutrin 2015-06 No Notes: Memor ia XL 2-24 (Same as: l 00:00: Wellbutrin [place] 00 XL) "Do Not Crush" Norvasc 2015-06 [...] tab, PO, l tablet 15:35: Daily, 0 [place] 00 Refill(s) amLODIPine 2015-06 No 10 mg = 1 Me moria 10 mg oral 2-23 tab, PO, l tablet 15:35: Daily, 0 Vin 00 Refill(s) pravastatin 2015-06 No 40 mg = 1 M emoria 40 mg oral 2-23 tab, PO, l tablet 15:35: Daily, 0 [place] 00 Refill(s) amLODIPine 2015-06 No 10 mg = 1 Me moria 10 mg oral 2-23 tab, PO, l tablet 15:35: Daily, 0 [place] 00 Refill(s) pravastatin 2015-06 No 40 mg = 1 M emoria 40 mg oral 2-23 tab, PO, l tablet 15:35: Daily, 0 [place] 00 Refill(s) amLODIPine 2015-06 No 10 mg = 1 Me moria 10 mg oral 2-23 tab, PO, l tablet 15:35: Daily, 0 Vin 00 Refill(s) pravastatin 2015-06 No 40 mg = 1 M emoria 40 mg oral 2-23 tab, PO, l tablet 15:35: Daily, 0 [place] 00 Refill(s) amLODIPine 2015-06 No 10 mg [...] tab, PO, l Tablet 15:27: Daily, 0 [place] [Zoloft] 00 Refill(s) pantoprazol 2015-06 Yes 40 mg = 1 M emoria e 40 MG 2-23 tab, PO, l Enteric 15:27: Daily, 0 Jake n Coated 00 Refill(s) Tablet [Protonix] gabapentin 2015-06 Yes 1 CAP PO Mem oria 300 MG Oral 2-23 BID AND 1 l Capsule 15:27: CAP AT [place] 00 BEDTIME, 0 Refill(s) Insulin, 2015-06 No [...] tab, PO, l Tablet 15:27: Daily, 0 [place] [Zoloft] 00 Refill(s) pantoprazol 2015-06 Yes 40 [...] tab, PO, l Tablet 15:27: Daily, 0 [place] [Zoloft] 00 Refill(s) pantoprazol 2015-06 Yes 40 mg = 1 M emoria e 40 MG 2-23 tab, PO, l Enteric 15:27: Daily, 0 Jake n Coated 00 Refill(s) Tablet [Protonix] gabapentin 2015-06 Yes 1 CAP PO Mem oria 300 MG Oral 2-23 BID AND 1 l Capsule 15:27: CAP AT [place] 00 BEDTIME, 0 Refill(s) Insulin, 2015-06 No [...] AND 1 l Capsule 15:27: CAP AT [place] 00 BEDTIME, 0 Refill(s) Insulin, 2015-06 No [...] Memori a 2-22 (Same l 19:00: as:Chronul [place]) Lactulose 2015-06 No Notes: Memori a 2-22 (Same l 19:00: as:Chronul ) Lactulose 2015-06 No Notes: Memori a 2-22 (Same l 19:00: as:Chronul ) Lactulose 2015-06 No Notes: Memori a 2-22 (Same l 19:00: as:Chronul [place]) Lactulose 2015-06 No Notes: Memori a 2-22 [...] Weight 86.364, kg, Start date: 06/11/16 9:00:00 CUSTOMER SUPPORT ASSOCIATE, Duration: 30 day, Stop date: 07/10/16 9:00:00 CUSTOMER SUPPORT ASSOCIATE Insulin 2015-06 No Notes: Memoria Glargine 2-22 [...] Weight 86.364, kg, Start date: 06/11/16 9:00:00 CUSTOMER SUPPORT ASSOCIATE, Duration: 30 day, Stop date: 07/10/16 9:00:00 CUSTOMER SUPPORT ASSOCIATE Insulin 2015-06 No Notes: [facility] Glargine 2-22 [...] Weight 86.364, kg, Start date: 06/11/16 9:00:00 CUSTOMER SUPPORT ASSOCIATE, Duration: 30 day, Stop date: 07/10/16 9:00:00 CUSTOMER SUPPORT ASSOCIATE Insulin 2015-06 No Notes: [facility] Glargine 2-22 [...] Weight 86.364, kg, Start date: 06/11/16 9:00:00 CUSTOMER SUPPORT ASSOCIATE, Duration: 30 day, Stop date: 07/10/16 9:00:00 CUSTOMER SUPPORT ASSOCIATE Insulin 2015-06 No Notes: [facility] Glargine 2-22 [...] 2-22 Route: PO, l 15:00: Drug form: [place] 00 ECTAB, Daily, Dosing Weight 86.364, kg, Start date: 06/11/16 9:00:00 CUSTOMER SUPPORT ASSOCIATE, Duration: 30 day, Stop date: 07/10/16 9:00:00 CUSTOMER SUPPORT ASSOCIATE Insulin 2015-06 No Notes: [facility] Glargine 2-22 [...] Roll in l Human 12:55: palms of [place] 00 hands gently; Do not shake vigorously [...] sodium, 2-22 porcine l porcine 06:00: heparin [place] 2500 UNT/ML 00 Injectable Solution heparin 2015-06 No Notes: Memoria sodium, 2-22 porcine l porcine 06:00: heparin Vin 2500 UNT/ML 00 Injectable Solution heparin 2015-06 No Notes: Memoria sodium, 2-22 porcine l porcine 06:00: heparin [place] 2500 UNT/ML 00 Injectable Solution heparin 2015-06 No Notes: Memoria sodium, 2-22 porcine l porcine 06:00: heparin [place] 2500 UNT/ML 00 Injectable Solution heparin 2015-06 No Notes: Memoria sodium, 2-22 porcine l porcine 06:00: heparin [place] 2500 UNT/ML 00 Injectable Solution Albuterol 2015-06 No Notes: Memori a 0.833 MG/ML 08-12 (Same as: l / 03:00: Duoneb) Vin Ipratropium 00 [place] 0.167 MG/ML Inhalant Solution [DuoNeb] gabapentin 2015-06 No 300 mg, Mendoza janice 300 MG Oral 08-12 Route: PO, l Capsule 03:00: Drug form: Herm naeem 00 CAP, Q12H, Dosing Weight 86.364, kg, (CrCl 30 - 59 ml/min), Start date: 06/10/16 21:00:00 CUSTOMER SUPPORT ASSOCIATE, Duration: 30 day, Stop date: 07/10/16 9:00:00 CUSTOMER SUPPORT ASSOCIATE divalproex 2015-06 No Notes: Memor ia sodium 2-22 (Same as: l 03:00: Depakote [place] 00 ER) Once daily dosing; indicated for migraines. Divalproex sodium extended-r elease tab. Do not chew or crush. "Do Not Crush" Losartan 2015-06 No Notes: Memoria 2-22 (Same as: l 03:00: Cozaar) Vin 00 Albuterol 2015-06 No Notes: Memori a 0.833 MG/ML 2-22 (Same as: l / 03:00: Duoneb) [place] Ipratropium 00 [place] 0.167 MG/ML Inhalant Solution [DuoNeb] gabapentin 2015-06 No 300 mg, Mendoza janice 300 MG Oral 2-22 Route: PO, l Capsule 03:00: Drug form: Herm naeem 00 CAP, Q12H, Dosing Weight 86.364, kg, (CrCl 30 - 59 ml/min), Start date: 06/10/16 21:00:00 CUSTOMER SUPPORT ASSOCIATE, Duration: 30 day, Stop date: 07/10/16 9:00:00 CUSTOMER SUPPORT ASSOCIATE divalproex 2015-06 No Notes: Memor ia sodium 2-22 (Same as: l 03:00: Depakote [place] 00 ER) Once daily dosing; indicated for migraines. Divalproex sodium extended-r elease tab. Do not chew or crush. "Do Not Crush" Losartan 2015-06 No Notes: Memoria 2-22 (Same as: l 03:00: Cozaar) Vin 00 Albuterol 2015-06 No Notes: Memori a 0.833 MG/ML 2-22 (Same as: l / 03:00: Duoneb) [place] Ipratropium 00 [place] 0.167 MG/ML Inhalant Solution [DuoNeb] gabapentin 2015-06 No 300 mg, Mendoza janice 300 MG Oral 2-22 Route: PO, l Capsule 03:00: Drug form: Herm naeem 00 CAP, Q12H, Dosing Weight 86.364, kg, (CrCl 30 - 59 ml/min), Start date: 06/10/16 21:00:00 CUSTOMER SUPPORT ASSOCIATE, Duration: 30 day, Stop date: 07/10/16 9:00:00 CUSTOMER SUPPORT ASSOCIATE divalproex 2015-06 No Notes: Memor ia sodium 2-22 (Same as: l 03:00: Depakote [place] 00 ER) Once daily dosing; indicated for migraines. Divalproex sodium extended-r elease tab. Do not chew or crush. "Do Not Crush" Losartan 2015-06 No Notes: Memoria 2-22 (Same as: l 03:00: Cozaar) Vin 00 Albuterol 2015-06 No Notes: Memori a 0.833 MG/ML 2-22 (Same as: l 03:00: Duoneb) [place] Ipratropium 00 [place] 0.167 MG/ML Inhalant Solution [DuoNeb] gabapentin 2015-06 No 300 mg, Mendoza janice 300 MG Oral 2-22 Route: PO, l Capsule 03:00: Drug form: Herm naeem 00 CAP, Q12H, Dosing Weight 86.364, kg, (CrCl 30 - 59 ml/min), Start date: 06/10/16 21:00:00 CUSTOMER SUPPORT ASSOCIATE, Duration: 30 day, Stop date: 07/10/16 9:00:00 CUSTOMER SUPPORT ASSOCIATE divalproex 2015-06 No Notes: Memor ia sodium 2-22 (Same as: l 03:00: Depakote Vin 00 ER) Once daily dosing; indicated for migraines. Divalproex sodium extended-r elease tab. Do not chew or crush. "Do Not Crush" Losartan 2015-06 No Notes: Memoria 2-22 (Same as: l 03:00: Cozaar) [place] 00 Albuterol 2015-06 No Notes: Memori a 0.833 MG/ML 2-22 (Same as: l / 03:00: Duoneb) [place] Ipratropium 00 [place] 0.167 MG/ML Inhalant Solution [DuoNeb] gabapentin 2015-06 No 300 mg, Mendoza janice 300 MG Oral 2-22 Route: PO, l Capsule 03:00: Drug form: Herm naeem 00 CAP, Q12H, Dosing Weight 86.364, kg, (CrCl 30 - 59 ml/min), Start date: 06/10/16 21:00:00 CUSTOMER SUPPORT ASSOCIATE, Duration: 30 day, Stop date: 07/10/16 9:00:00 CUSTOMER SUPPORT ASSOCIATE divalproex 2015-06 No Notes: Memor ia sodium 2-22 (Same as: l 03:00: Depakote Vin 00 ER) Once daily dosing; indicated for migraines. Divalproex sodium extended-r elease tab. Do not chew or crush. "Do Not Crush" Losartan 2015-06 No Notes: Memoria 2-22 (Same as: l 03:00: Cozaar) [place] 00 Insulin, 2015-06 No Notes: Memoria Aspart, 2-22 Roll in l Human 00:50: palms of [place] 00 hands gently; Do not shake vigorously . (Same as: NovoLOG) "single patient use only" WASTE: F/P - Black; E - Municipal Trash Bin Stable for 28 days at room temperatur e. Expires in days from ____Date Dextrose 2015-06 No 12.5 gm, Memor ia 50% Syringe 2-22 25 mL, l 00:50: Route: [place] 00 IVP, Drug Form: INJ, Dosing Weight 86.364, kg, PRN, PRN Blood Glucose Results, Start date: 06/10/16 18:50:00 CUSTOMER SUPPORT ASSOCIATE, Duration: 30 day, Stop date: 07/10/16 18:49:00 CUSTOMER SUPPORT ASSOCIATE Glucagon 2015-06 No 1 mg, Memoria 2-22 Route: IM, l 00:50: Drug form: Vin 00 PDR/INJ, PRN, Dosing Weight 86.364, kg, PRN Blood Glucose Results, Start date: 06/10/16 18:50:00 CUSTOMER SUPPORT ASSOCIATE, Duration: 30 day, Stop date: 07/10/16 18:49:00 CUSTOMER SUPPORT ASSOCIATE Insulin, 2015-06 No Notes: Memoria Aspart, 2-22 Roll in l Human 00:50: palms of [place] 00 hands gently; Do not shake vigorously . (Same as: NovoLOG) "single patient use only" WASTE: F/P - Black; E - Municipal Trash Bin Stable for 28 days at room temperatur e. Expires in days from ____Date Dextrose 2015-06 No 12.5 gm, Memor ia 50% Syringe 2-22 25 mL, l 00:50: Route: [place] 00 IVP, Drug Form: INJ, Dosing Weight 86.364, kg, PRN, PRN Blood Glucose Results, Start date: 06/10/16 18:50:00 CUSTOMER SUPPORT ASSOCIATE, Duration: 30 day, Stop date: 07/10/16 18:49:00 CUSTOMER SUPPORT ASSOCIATE Glucagon 2015-06 No 1 mg, Memoria 2-22 Route: IM, l 00:50: Drug form: [place] 00 PDR/INJ, PRN, Dosing Weight 86.364, kg, PRN Blood Glucose Results, Start date: 06/10/16 18:50:00 CUSTOMER SUPPORT ASSOCIATE, Duration: 30 day, Stop date: 07/10/16 18:49:00 CUSTOMER SUPPORT ASSOCIATE Insulin, 2015-06 No Notes: Memoria Aspart, 2-22 Roll in l Human 00:50: palms of [place] 00 hands gently; Do not shake vigorously [...] Blood Glucose Results, Start date: 06/10/16 18:50:00 CUSTOMER SUPPORT ASSOCIATE, Duration: 30 day, Stop date: 07/10/16 18:49:00 CUSTOMER SUPPORT ASSOCIATE Glucagon 2015-06 No 1 mg, Memoria 2-22 Route: IM, l 00:50: Drug form: Vin 00 PDR/INJ, PRN, Dosing Weight 86.364, kg, PRN Blood Glucose Results, Start date: 06/10/16 18:50:00 CUSTOMER SUPPORT ASSOCIATE, Duration: 30 day, Stop date: 07/10/16 18:49:00 CUSTOMER SUPPORT ASSOCIATE Insulin, 2015-06 No Notes: Memoria Aspart, 2-22 Roll in l Human 00:50: palms of [place] 00 hands gently; Do not shake vigorously [...] Blood Glucose Results, Start date: 06/10/16 18:50:00 CUSTOMER SUPPORT ASSOCIATE, Duration: 30 day, Stop date: 07/10/16 18:49:00 CUSTOMER SUPPORT ASSOCIATE Glucagon 2015-06 No 1 mg, Memoria 2-22 Route: IM, l 00:50: Drug form: [place] 00 PDR/INJ, PRN, Dosing Weight 86.364, kg, PRN Blood Glucose Results, Start date: 06/10/16 18:50:00 CUSTOMER SUPPORT ASSOCIATE, Duration: 30 day, Stop date: 07/10/16 18:49:00 CUSTOMER SUPPORT ASSOCIATE Insulin, 2015-06 No Notes: Memoria Aspart, 2-22 Roll in l Human 00:50: palms of [place] 00 hands gently; Do not shake vigorously . (Same as: NovoLOG) "single patient use only" WASTE: F/P - Black; E - Municipal Trash Bin Stable for 28 days at room temperatur e. Expires in days from ____Date Dextrose 2015-06 No 12.5 gm, Memor ia 50% Syringe 2-22 25 mL, l 00:50: Route: [place] 00 IVP, Drug Form: INJ, Dosing Weight 86.364, kg, PRN, PRN Blood Glucose Results, Start date: 06/10/16 18:50:00 CUSTOMER SUPPORT ASSOCIATE, Duration: 30 day, Stop date: 07/10/16 18:49:00 CUSTOMER SUPPORT ASSOCIATE Glucagon 2015-06 No 1 mg, Memoria 2-22 Route: IM, l 00:50: Drug form: Vin 00 PDR/INJ, PRN, Dosing Weight 86.364, kg, PRN Blood Glucose Results, Start date: 06/10/16 18:50:00 CUSTOMER SUPPORT ASSOCIATE, Duration: 30 day, Stop date: 07/10/16 18:49:00 CUSTOMER SUPPORT ASSOCIATE Hydralazine 2015-06 No Notes: Mendoza janice 2-22 (Same as: l 00:36: Apresoline [place] 00 ) Push over 5 minutes Hydralazine 2015-06 No Notes: Mendoza janice 2-22 (Same as: l 00:36: Apresoline Vin 00 ) Push over 5 minutes Hydralazine 2015-06 No Notes: Mendoza janice 2-22 (Same as: l 00:36: Apresoline Vin 00 ) Push over 5 minutes Hydralazine 2015-06 No Notes: Mendoza janice 2-22 (Same as: l 00:36: Apresoline [place] 00 ) Push over 5 minutes Hydralazine 2015-06 No Notes: Mendoza janice 2-22 (Same as: l 00:36: Apresoline [place] 00 ) Push over 5 minutes Hydralazine 2015-06 No Notes: Mendoza janice 2-22 (Same as: l 00:34: Apresoline Vin 00 ) May interfere w/enteral feedings Take With Food Hydralazine 2015-06 No Notes: Mendoza janice 2-22 (Same as: l 00:34: Apresoline Vin 00 ) May interfere w/enteral feedings Take With Food Hydralazine 2015-06 No Notes: Mendoza janice 2-22 (Same as: l 00:34: Apresoline [place] 00 ) May interfere w/enteral feedings Take With Food Hydralazine 2015-06 No Notes: Mendoza janice 2-22 (Same as: l 00:34: Apresoline Vin 00 ) May interfere w/enteral feedings Take With Food Hydralazine 2015-06 No Notes: Mendoza janice 2-22 (Same as: l 00:34: Apresoline [place] 00 ) May interfere w/enteral feedings Take [...] Weight 86.364, kg, Start date: 06/10/16 18:06:00 [employer], Stop date: 06/10/16 18:06:00 [employer] Hydralazine 2015-06 No 10 mg, Mendoza janice 2-22 Route: IV, l 00:06: ONCE, Dosing Weight 86.364, kg, Start date: 06/10/16 18:06:00 [employer], Stop date: 06/10/16 18:06:00 [employer] Hydralazine 2015-06 No 10 mg, Mendoza janice 2-22 Route: IV, l 00:06: ONCE, Dosing Weight 86.364, kg, Start date: 06/10/16 18:06:00 [employer], Stop date: 06/10/16 18:06:00 [employer] Hydralazine 2015-06 No 10 mg, Mendoza janice 2-22 Route: IV, l 00:06: ONCE, Dosing Weight 86.364, kg, Start date: 06/10/16 18:06:00 [employer], Stop date: 06/10/16 18:06:00 [employer]ER [employer]IATE Hydralazine 2015-06 No 10 mg, Mendoza janice 2-22 Route: IV, l 00:06: ONCE, Dosing Weight 86.364, kg, Start date: 06/10/16 18:06:00 C[employer]ER SUPPORT ASSOCIATE, Stop date: 06/10/16 18:06:00 C[employer]OMER SU[employer] ASSOCIATE hydrOXYzine 2015-06 No Notes: Mendoza janice pamoate [...] ia 2-21 Route: l 22:32: IVP, Drug [place] 00 form: INJ, ONCE, Dosing Weight 86.364, kg, Start date: 06/10/16 16:32:00 C[employer]ER SU[employer] ASSOCIATE, Stop date: 06/10/16 16:32:00 C[employer]OMER SUPPORT ASSOCIATE Furosemide 2015-06 No 60 mg, Memor ia 2-21 Route: l 22:32: IVP, Drug Vin 00 form: INJ, ONCE, Dosing Weight 86.364, kg, Start date: 06/10/16 16:32:00 C[employer]ER SUPPORT ASSOCIATE, Stop date: 06/10/16 16:32:00 C[employer]ER SU[employer] ASSOCIATE Furosemide 2015-06 No 60 mg, Memor ia 2-21 Route: l 22:32: IVP, Drug [place] 00 form: INJ, ONCE, Dosing Weight 86.364, kg, Start date: 06/10/16 16:32:00 C[employer]ER SUPPORT ASSOCIATE, Stop date: 06/10/16 16:32:00 C[employer]ER SUPPORT ASSOCIATE Furosemide 2015-06 No 60 mg, Memor ia 2-21 Route: l 22:32: IVP, Drug [place] 00 form: INJ, ONCE, Dosing Weight 86.364, kg, Start date: 06/10/16 16:32:00 C[employer]ER SUPPORT ASSOCIATE, Stop date: 06/10/16 16:32:00 C[employer]ER SUPPORT ASSOCIATE Furosemide 2015-06 No 60 mg, Memor ia 2-21 Route: l 22:32: IVP, Drug Vin 00 form: INJ, ONCE, Dosing Weight 86.364, kg, Start date: 06/10/16 16:32:00 C[employer]OMER SUPPORT ASSOCIATE, Stop date: 06/10/16 16:32:00 C[employer]OMER SUPPORT ASSOCIATE Lasix 2015-06 No Notes: Memoria 2-21 (Same as: l 17:22: Lasix) MEDICATION WASTE Product Size: 40 mg Product Wasted: _0__ mg Albuterol 2015-06 No Notes: Memori a 0.833 MG/ML 2-21 (Same as: :22: Duoneb) Vin Ipratropium 00 [place] 0.167 MG/ML Inhalant Solution [DuoNeb] Lasix 2015-06 No Notes: Memoria 2- (Same as: l 17:22: Lasix) Vin 00 MEDICATION WASTE Product Size: 40 mg Product Wasted: _0__ mg Albuterol 2015-06 No Notes: Memori a 0.833 MG/ML - (Same as: :22: Duoneb) Vin Ipratropium 00 [place] 0.167 MG/ML Inhalant Solution [DuoNeb] Lasix 2015-06 No Notes: Memoria 08-11 (Same as: l 17:22: Lasix) Vin 00 MEDICATION WASTE Product Size: 40 mg Product Wasted: _0__ mg Albuterol 2015-06 No Notes: Memori a 0.833 MG/ML - (Same as: :: Duoneb) [place] Ipratropium 00 [place] 0.167 MG/ML Inhalant Solution [DuoNeb] Lasix 2015-06 No Notes: Memoria 08-11 (Same as: l 17:22: Lasix) [place] 00 MEDICATION WASTE Product Size: 40 mg Product Wasted: _0__ mg Albuterol 2015-06 No Notes: Memori a 0.833 MG/ML - (Same as: :22: Duoneb) Vin Ipratropium 00 [place] 0.167 MG/ML Inhalant Solution [DuoNeb] Lasix 2015-06 No Notes: Memoria 2- (Same as: l 17:22: Lasix) [place] 00 MEDICATION WASTE Product Size: 40 mg Product Wasted: _0__ mg Albuterol 2015-06 No Notes: Memori a 0.833 MG/ML -21 (Same as: :22: Duoneb) Vin Ipratropium 00 [place] 0.167 MG/ML Inhalant Solution [DuoNeb] Promethazin Yes 25 mg = 1 M emoria e 1-06 supp, [place], l Hydrochlori 14:45: Q6H, Jake gonzalez de 25 MG 00 Nausea & Rectal Vomiting, Suppository # 9 supp, [Phenergan] 0 Refill(s) Promethazin Yes 25 mg = 1 M emoria e 1-06 supp, WI, l Hydrochlori 14:45: Q6H, Jake gonzalez de 25 MG 00 Nausea & Rectal Vomiting, Suppository # 9 supp, [Phenergan] 0 Refill(s) Promethazin Yes 25 mg = 1 M emoria e 1-06 supp, WI, l Hydrochlori 14:45: Q6H, Jake gonzalez de 25 MG 00 Nausea & Rectal Vomiting, Suppository # 9 supp, [Phenergan] 0 Refill(s) Promethazin Yes 25 mg = 1 M emoria e 1-06 supp, WI, l Hydrochlori 14:45: Q6H, Jake gonzalez de 25 MG 00 Nausea & Rectal Vomiting, Suppository # 9 supp, [Phenergan] 0 Refill(s) Promethazin Yes 25 mg = 1 M emoria e 1-06 supp, WI, l Hydrochlori 14:45: Q6H, Jake gonzalez de [...] MG -06 Instructio l Disintegrat 14:25: ns: aJke n ing Tablet 00 Dissolve [Zofran] tab under tongue Ondansetron 2015-0 Yes Special Mem oria 4 [...] ne 06-26 Same as: l 11:48: Dilaudid [place] Hydromorpho No Notes: Mendoza janice ne 06-26 Same as: l 11:48: Dilaudid Vin Hydromorpho No Notes: Mendoza janice ne 06-26 Same as: l 11:48: Dilaudid Vin Hydromorpho No Notes: Mendoza janice ne 06-26 Same as: l 11:48: Dilaudid [place] hydrOXYzine Yes 0 Memori a pamoate 1-06 Refill(s) l 11:18: [place] 00 Dicyclomine Yes 0 Memori a 1-06 Refill(s) l 11:18: Vin 00 hydrOXYzine Yes 0 Memori a pamoate 1-06 Refill(s) l 11:18: Vin 00 Dicyclomine Yes 0 Memori a 1-06 Refill(s) l 11:18: [place] 00 hydrOXYzine Yes 0 Memori a pamoate 1-06 Refill(s) l 11:18: [place] 00 Dicyclomine Yes 0 Memori a 1-06 Refill(s) l 11:18: Vin 00 hydrOXYzine Yes 0 Memori a pamoate 1-06 Refill(s) l 11:18: [place] 00 Dicyclomine Yes 0 Memori a 1-06 Refill(s) l 11:18: [place] 00 hydrOXYzine Yes 0 Memori a pamoate 1-06 Refill(s) l 11:18: Vin 00 Dicyclomine 0 Yes 0 Memori a 1-06 Refill(s) l 11:18: [place] 00 Ondansetron 0 Yes 0 Memori a 1-06 Refill(s) l 11:17: [place] 00 Benztropine 2015-0 Yes 0 Memori a [...] Memoria 1-06 Refill(s) l 11:16: Vin 00 Depakote 0 Yes 0 Memoria 1-06 Refill(s) l 11:16: Vin 00 quetiapine 0 Yes 0 Memoria 1-06 Refill(s) l 11:16: [place] 00 Erythromyci 0 Yes 0 Memori a n 1-06 Refill(s) l 11:16: Tramadol 0 Yes 0 Memoria 1-06 Refill(s) l 11:16: [place] 00 Depakote 0 Yes 0 Memoria 1-06 Refill(s) l 11:16: Vin 00 quetiapine 0 Yes 0 Memoria 1-06 Refill(s) [...] Chloride 1-06 1,000 l 0.154 10:56: ml/hr, [place] MEQ/ML 00 Infuse Injectable Over: 2 Solution hr, Route: IV, 2,000, Drug form: INJ, ONCE, Priority: STAT, Dosing Weight 75 kg, Start date: 06/26/14 4:56:00, Duration: 1 doses or times, Stop date: 06/26/14 4:56:00 Lorazepam 0 No Notes: Memori a 1-06 (Same as: l 10:56: Ativan) Sodium 0 No 2,000 mL, Memori a Chloride 1-06 1,000 l 0.154 10:56: ml/hr, [place] MEQ/ML 00 Infuse Injectable Over: 2 Solution hr, Route: IV, 2,000, Drug form: INJ, ONCE, Priority: STAT, Dosing Weight 75 kg, Start date: 06/26/14 4:56:00, Duration: 1 doses or times, Stop date: 06/26/14 4:56:00 Lorazepam No Notes: Memori a 1- (Same as: l 10:56: Ativan) Sodium No 2,000 mL, Memori a Chloride 106 1,000 l 0.154 10:56: ml/hr, Vin MEQ/ML [...] Rate: 125 l 0.9% IV 04:10: ml/hr, [place] 1,000 mL 00 Infuse over: 8 hr, [...] Rate: 125 l 0.9% IV 04:10: ml/hr, [place] 1,000 mL 00 Infuse over: 8 hr, [...] Duration: 24 hr, Stop date: 04/15/13 23:09:00(S dyaami as: BD Posiflush) morphine 2012-06 No Matthew [...] Rate: 125 l 0.9% IV 04:10: ml/hr, [place] 1,000 mL 00 Infuse over: 8 hr, [...] Marx Rate: 500 l 0.9% 23:45: ml/hr, [place] (Bolus) IV 00 Infuse 500 mL over: 1 hr, Route: IV, kg, Total Volume: 500, Bolus Dose, Priority: STAT, Start date: 03/14/12 18:45:00, Duration: 1 doses or times, Stop date: 03/14/12 19:44:00 Sodium 2012-0 No Hung Murillo 500 mL, Me moria Chloride 9-24 Marx Rate: 500 l 0.9% 23:45: ml/hr, [place] (Bolus) IV 00 Infuse 500 mL over: [...] Marx Rate: 500 l 0.9% 23:45: ml/hr, [place] (Bolus) IV 00 Infuse 500 mL over: 1 hr, Route: IV, kg, Total Volume: 500, [place]us Dose, Priority: STAT, Start date: 03/14/12 18:45:00, Duration: 1 doses or times, Stop date: 03/14/12 19:44:00 Sodium 2011-0 No Hung Murillo 500 mL, Me moria Chloride 9-24 Marx Rate: 500 l 0.9% 23:45: ml/hr, [place] (Bolus) IV 00 Infuse 500 mL over: 1 hr, Route: IV, kg, Total Volume: 500, Bolus Dose, Priority: STAT, Start date: 03/14/12 18:45:00, Duration: 1 doses or times, Stop date: 03/14/12 19:44:00 ondansetron 2011-0 No Hung Murillo 4 mg, Memoria 9-24 Marx Route: l 22:19: IVP, ONCE, [place] 00 Dosing Weight 58.636, kg, Priority: STAT, [...] 9-24 Marx Rate: l 0.9% 22:19: 1,000 [place] (Bolus) IV 00 ml/hr, 500 mL Infuse [...] 9-24 Marx Rate: l 0.9% 22:19: 1,000 [place] (Bolus) IV 00 ml/hr, 500 mL Infuse [...] 03-14 Marx Rate: l 0.9% 22:19: 1,000 [place] (Bolus) IV 00 ml/hr, 500 mL Infuse [...] insulin No Blake 10 unit, Mem oria isophane-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 THERAPY 6-11 Deangelo 0.1 mL, l H 02:00: [...] insulin No Blake 10 unit, Mem oria 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-[employer]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 [employer]ER[employer]Y 6-11 Deangelo 0.1 mL, l H 02:00: [...] 2011-0 No Blake 10 unit, Mem oria isophane-[employer]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 [employer]ER[employer]Y 6-11 Deangelo 0.1 mL, l H 02:00: Brisa Route: [place] 00 SUB-Q, Drug form: INJ, Bedtime, Start date: 11/29/11 21:00:00, Duration: 30 day, Stop date: 12/28/11 21:00:00 Insulin 2011-0 No Blake 8 unit, Mendoza janice regular 6-11 Deangelo 0.08 mL, l 02:00: Brisa Route: [place] 00 SUB-Q, Drug form: SOLN, Bedtime, Start [...] 2011-0 No Blake 10 unit, Mem oria isophane-[employer]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 [employer]ER[employer]Y 6-11 Deangelo 0.1 mL, l H 02:00: Brisa Route: [place] SUB-Q, Drug form: INJ, Bedtime, Start date: [...] 2011-0 No Blake 10 unit, Mem oria isophane-[employer]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 [employer]ER[employer]Y 6-11 Deangelo 0.1 mL, l H 02:00: [...] Omidvar mL, Route: l 21:32: IVP, Drug [place] 00 form: INJ, ONCE, Start date: 11/29/11 16:32:00, Stop date: 11/29/11 16:32:00 morphine 2011-0 No [place] 2 mg, 0.5 Me moria Sulfate 6-10 Omidvar mL, Route: l 21:32: IVP, Drug [place] 00 form: INJ, ONCE, Start date: 11/29/11 16:32:00, Stop date: 11/29/11 16:32:00 morphine 2012-0 No [place] 2 mg, 0.5 Me moria Sulfate 6-10 Omidvar mL, Route: l 21:32: IVP, Drug [place] 00 form: INJ, ONCE, Start date: 11/29/11 16:32:00, Stop date: 11/29/11 16:32:00 morphine 2012-0 No [place] 2 mg, 0.5 Me moria Sulfate 6-10 Omidvar mL, Route: l 21:32: IVP, Drug Vin form: INJ, ONCE, Start date: 11/29/11 16:32:00, Stop date: 11/29/11 16:32:00 morphine 2011-0 No [place] 2 mg, 0.5 Me moria Sulfate 6-10 Omidvar mL, Route: l 21:32: IVP, Drug [place] 00 form: INJ, ONCE, Start date: 11/29/11 16:32:00, Stop date: 11/29/11 16:32:00 Tylenol 2011-0 No [place] 650 mg, 2 Mem oria 6-10 Omidvar tab, l 19:16: Route: PO, [place] 00 Drug form: TAB, Q4H, PRN Pain, [...] 2011-0 No Blake 14 unit, Mem oria isophane-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 [employer]ER[employer]Y 6-10 Deangelo 0.14 mL, l H 14:00: Brisa Route: [place] 00 SUB-Q, Drug form: INJ, Daily, Start [...] tab, l 14:00: Brisa Route: PO, Her Drug form: TAB, Daily, Start date: 11/29/11 9:00:00, Duration: 30 day, Stop date: 12/28/11 9:00:00 insulin 2011-0 No Blake 14 unit, Mem oria isophane-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 [employer]ER[employer]Y 6-10 Deangelo 0.14 mL, l H 14:00: Brisa Route: [place] 00 SUB-Q, Drug form: INJ, Daily, Start [...] tab, l 14:00: Brisa Route: PO, Her Drug form: TAB, Daily, Start date: 11/29/11 9:00:00, Duration: 30 day, Stop date: 12/28/11 9:00:00 benztropine 2011-0 No Blake 1 mg, 1 Memoria 6-10 Deangelo tab, l 14:00: Brisa Route: PO, Her Drug form: TAB, BID, Start date: 11/29/11 9:00:00, Duration: 30 day, Stop date: 12/28/11 17:00:00 amLODipine 2011-0 No Blake 5 mg, 1 M emoria 6-10 Deangelo tab, l 14:00: Brisa Route: PO, Her braden 00 Drug form: TAB, Daily, Start date: 11/29/11 9:00:00, Duration: 30 day, Stop date: 12/28/11 9:00:00 insulin 2011-0 No Blake 14 unit, Mem oria isophane-[employer]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 [employer]ER[employer]Y 6-10 Deangelo 0.14 mL, l H 14:00: Brisa Route: [place] 00 SUB-Q, Drug form: INJ, Daily, Start date: 11/29/11 9:00:00, Duration: 30 day, Stop date: 12/28/11 9:00:00 Insulin 2011-0 No Blake 10 unit, Mem oria regular 6-10 Deangelo 0.1 mL, l 14:00: Brisa Route: [place] 00 SUB-Q, Drug form: SOLN, Daily, Start [...] 2011-0 No Blake 14 unit, Mem oria isophane-[employer]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 THER[employer]Y 6-10 Deangelo 0.14 mL, l H 14:00: [...] 2011-0 No Blake 14 unit, Mem oria isophane-[employer]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 THER[employer]Y 6-10 Deangelo 0.14 mL, l H 14:00: Brisa Route: Vin 00 SUB-Q, Drug form: INJ, Daily, Start date: 11/29/11 9:00:00, Duration: 30 day, Stop date: 12/28/11 9:00:00 Insulin 2011-0 No Blake 10 unit, Mem oria regular 6-10 Deangelo 0.1 mL, l 14:00: Brisa Route: [place] 00 SUB-Q, Drug form: SOLN, Daily, Start [...] 30 day, Stop date: 12/29/11 1:29:00 insulin 2011- No Blake 10 unit, Mem [...] l IV 1,000 mL 06:29: Brisa ml/hr, [place] 00 Infuse over: 5 hr, Route: IV, Dosing Weight 57.273 kg, Total Volume: 1,000, Start date: 11/29/11 1:29:00, Duration: 30 day, Stop date: 12/29/11 1:28:00 normal No Blake 1,000 mL, Mem oria saline 0.9% 6-10 Deangleo Rate: 200 l IV 1,000 mL 06:29: Brisa ml/hr, [place] 00 Infuse over: 5 hr, Route: IV, [...] l IV 1,000 mL 06:29: Brisa ml/hr, [place] 00 Infuse over: 5 hr, Route: IV, [...] janice 6-10 Deangelo Route: IV, l 06:28: [facility] Drug form: Her braden 00 INJ, [...] janice 6-10 Deangelo Route: IV, l 06:28: [facility] Drug form: Her braden 00 INJ, [...] 2011-0 No Blake 10 mg, 2 Mendoza ajnice 6-10 Deangelo mL, Route: l 06:28: Brisa IVP, Drug Herm naeem 00 form: INJ, Q6H, Priority: STAT, Start date: 11/29/11 1:28:00, Duration: 30 day, Stop date: 12/29/11 0:00:00 Protonix 2011-0 No Blake 40 mg, Mendoza janice 6-10 Deangelo Route: IV, l 06:28: [facility] Drug form: Her braden 00 INJ, [...] janice 6-10 Deangelo Route: IV, l 06:28: [facility] Drug form: Her braden 00 INJ, [...] janice 6-10 Deangelo Route: IV, l 06:28: [facility] Drug form: Her braden 00 INJ, ONCE, Priority: STAT, Start date: 11/29/11 1:28:00, Stop date: 11/29/11 1:28:00 metoclopram 2011-0 No Nikki 10 mg, 2 Memoria gadiel 6-10 Sarah mL, Route: l 04:01: Brown IVP, Drug [place] 00 form: INJ, ONCE, Priority: STAT, Start date: 11/28/11 23:01:00, Stop date: 11/28/11 23:01:00 metoclopram 2012-0 No Nikki 10 mg, 2 Memoria gadiel 6-10 Sarah mL, Route: l 04:01: Brown IVP, Drug [place] 00 form: INJ, ONCE, Priority: STAT, Start date: 11/28/11 23:01:00, Stop date: 11/28/11 23:01:00 metoclopram 2012-0 No Nikki 10 mg, 2 Memoria gadiel 6-10 Sarah mL, Route: l 04:01: Brown IVP, Drug [place] 00 form: INJ, ONCE, Priority: STAT, Start [...] mL, Route: l 02:31: Brown IVP, Drug [place] 00 form: INJ, ONCE, Priority: STAT, Start [...] mL, Route: l 02:31: Brown IVP, Drug [place] 00 form: INJ, ONCE, Priority: STAT, Start date: 11/28/11 21:31:00, Stop date: 11/28/11 21:31:00 Zofran 2012-0 No Nikki 4 mg, 2 Mendoza janice 6-10 Sarah mL, Route: l 02:31: Brown IVP, Drug [place] 00 form: INJ, ONCE, Priority: STAT, Start [...] 1,000 mL 11-27 Rate: l 22:48: 1,000 [place] 00 ml/hr, Infuse over: 1 hr, Route: [...] 1,000 mL 6- Rate: l 20:36: 1,000 [place] 00 ml/hr, Infuse over: 1 hr, Route: IV, Dosing Weight 57.273 kg, Total Volume: 1,000, Start date: 11/28/11 15:36:00, Duration: 30 day, Stop date: 12/28/11 15:35:00 NS (Bolus) No Arif Domenico 1,000 mL, Memoria IV 1,000 mL 11-27 Rate: l 20:36: 1,000 [place] 00 ml/hr, Infuse over: 1 hr, Route: [...] 6-09 mL, Route: l 20:35: IVP, Drug [place] 00 form: INJ, ONCE, Priority: STAT, Start date: 11/28/11 15:35:00, Stop date: 11/28/11 15:35:00 Ativan No Arif Domenico 2 mg, 1 Mem oria 6-09 mL, Route: l 20:35: IVP, Drug [place] 00 form: INJ, ONCE, Priority: STAT, Start [...] form: INJ, ONCE, Priority: STAT, Start date: 06/09/12 15:35:00, Stop date: 11/28/11 15:35:00 Ativan 2011- No Arif Domenico 2 mg, 1 Mem oria 6-09 mL, Route: l 20:35: IVP, Drug [place] form: INJ, ONCE, Priority: STAT, Start date: 11/28/11 15:35:00, Stop date: 11/28/11 15:35:00 Novolin R Yes Hughes-Jason 8 unit, emoria 100 3-30 [place] SUB-Q, l units/mL 17:47: [place] Q12H, 2 He rmann injectable 42 Pu vial, solution Substituti on Allowed, SOLN Novolin R Yes Hughes-Jason 8 unit, emoria 100 3-30 [place] SUB-Q, l units/mL 17:47: [place] Q12H, 2 He rmann injectable 42 Pu vial, solution Substituti on Allowed, SOLN Novolin R Yes Hughes-Jason 8 unit, emoria 100 3-30 [place] SUB-Q, l units/mL 17:47: [place] Q12H, 2 He rmann injectable 42 Pu vial, solution Substituti on Allowed, SOLN Novolin R Yes Hughes-Jason 8 unit, emoria 100 3-30 [place] SUB-Q, l units/mL 17:47: [place] Q12H, 2 He rmann injectable 42 Pu vial, solution Substituti on Allowed, SOLN Novolin R Yes Hughes-Jason 8 unit, emoria 100 3-30 [place] SUB-Q, l units/mL 17:47: [place] Q12H, 2 He rmann injectable 42 Pu vial, solution Substituti on Allowed, SOLN Novolin N Yes Hughes-Jason 10 unit, Memoria 100 3-30 [place] SUB-Q, l units/mL 17:46: Dawson Bedtime, H ermann subcutaneou 27 Pu 10 ml, s injection Substituti on Allowed, SUSP Novolin N Yes Hughes-Jason 10 unit, Memoria 100 3-30 [place] SUB-Q, l units/mL 17:46: [place] Bedtime, H ermann subcutaneou 27 Pu 10 ml, s injection Substituti on Allowed, SUSP Novolin N Yes Hughes-Jason 10 unit, Memoria 100 3-30 [place] SUB-Q, l units/mL 17:46: [place] Bedtime, H ermann subcutaneou 27 Pu 10 ml, s injection Substituti on Allowed, SUSP Novolin N Yes Hughes-Jason 10 unit, Memoria 100 3-30 [place] SUB-Q, l units/mL 17:46: [place] Bedtime, H ermann subcutaneou 27 Pu 10 ml, s injection Substituti on Allowed, SUSP Novolin N Yes Hughes-Jason 10 unit, Memoria 100 3-30 [place] SUB-Q, l units/mL 17:46: [place] Bedtime, H ermann subcutaneou 27 Pu 10 ml, s injection Substituti on Allowed, SUSP Novolin N Yes Hughes-Jason 14 unit, Memoria 100 3-30 [place] SUB-Q, l units/mL 17:44: [place] QAM, 1 Her braden subcutaneou 37 Pu vial, s injection Substituti on Allowed, SUSP Novolin N Yes Hughes-Jason 14 unit, Memoria 100 3-30 [place] SUB-Q, l units/mL 17:44: [place] QAM, 1 Her braden subcutaneou 37 Pu vial, s injection Substituti on Allowed, SUSP Novolin N Yes Hughes-Jason 14 unit, Memoria 100 3-30 [place] SUB-Q, l units/mL 17:44: [place] QAM, 1 Her braden subcutaneou 37 Pu vial, s injection Substituti on Allowed, SUSP Novolin N Yes Hughes-Jason 14 unit, Memoria 100 3-30 [place] SUB-Q, l units/mL 17:44: [place] QAM, 1 Her braden subcutaneou 37 Pu vial, s injection Substituti on Allowed, SUSP Novolin N Yes Hughes-Jason 14 unit, Memoria 100 3-30 [place] SUB-Q, l units/mL 17:44: Dawson QAM, 1 Her braden subcutaneou 37 Pu vial, s injection Substituti on Allowed, SUSP magnesium 2012-0 No Hughes-Jason 400 mg, 1 Memoria oxide 3-30 [place]levins tab, l 14:55: [place] Route: PO, Her braden 00 Pu Drug form: TAB, ONCE, Priority: STAT, Start date: 09/18/11 9:55:00, Stop date: 09/18/11 9:55:00 magnesium 2011-0 No Hughes-Jason 400 mg, 1 Memoria oxide 3-30 [place] tab, l 14:55: [place] Route: PO, Her braden 00 Pu Drug form: TAB, ONCE, Priority: STAT, Start date: 09/18/11 9:55:00, Stop date: 09/18/11 9:55:00 magnesium 2011-0 No Hughes-Jason 400 mg, 1 Memoria oxide 3-30 [place] tab, l 14:55: [place] Route: PO, Her braden 00 Pu Drug form: TAB, ONCE, Priority: STAT, Start date: 09/18/11 9:55:00, Stop date: 09/18/11 9:55:00 magnesium 2011-0 No Hughes-Jason 400 mg, 1 Memoria oxide 3-30 [place] tab, l 14:55: [place] Route: PO, Her braden 00 Pu Drug form: TAB, ONCE, Priority: STAT, Start date: 09/18/11 9:55:00, Stop date: 09/18/11 9:55:00 magnesium 2011-0 No Hughes-Jason 400 mg, 1 Memoria oxide 3-30 [place] tab, l 14:55: Dawson Route: PO, Her braden 00 Pu Drug form: TAB, ONCE, Priority: STAT, Start date: 09/18/11 9:55:00, Stop date: 09/18/11 9:55:00 Insulin 2012-0 No Hughes-Jason 8 unit, Mem oria regular 3-30 [place] 0.08 mL, l 14:22: Dawson Route: [place] Pu SUB-Q, Drug form: SOLN, ONCE, Priority: STAT, Start date: 09/18/11 9:22:00, Stop date: 09/18/11 9:22:00 Insulin 2011-0 No Hughes-Jason 8 unit, Mem oria regular 3-30 [place] 0.08 mL, l 14:22: Dawson Route: [place] Pu SUB-Q, Drug form: SOLN, ONCE, Priority: STAT, Start date: 09/18/11 9:22:00, Stop date: 09/18/11 9:22:00 Insulin 2011-0 No Hughes-Jason 8 unit, Mem oria regular 3-30 Blev[place] 0.08 mL, l 14:22: Dawson Route: Vin Pu SUB-Q, Drug form: SOLN, ONCE, Priority: STAT, Start date: 09/18/11 9:22:00, Stop date: 09/18/11 9:22:00 Insulin 2011-0 No Hughes-Jason 8 unit, Mem oria regular 3-30 Blev[place] 0.08 mL, l 14:22: Dawson Route: [place] Pu SUB-Q, Drug form: SOLN, ONCE, Priority: STAT, Start date: 09/18/11 9:22:00, Stop date: 09/18/11 9:22:00 Insulin 2011-0 No Hughes-Jason 8 unit, Mem oria regular 3-30 Blevins 0.08 mL, l 14:22: Dawson Route: Pu SUB-Q, Drug form: SOLN, ONCE, Priority: STAT, Start date: 09/18/11 9:22:00, Stop date: 09/18/11 9:22:00 Lactated 2012-0 No Hughes-Jason 1,000 mL, Memoria Ringers 3-30 Blevins Rate: l (Bolus) IV 14:16: [place] 1,000 He rmann 1,000 mL 00 Pu ml/hr, Infuse over: 1 hr, Route: IV, Total Volume: 1,000, Bolus Dose, Priority: STAT, Start date: 09/18/11 9:16:00, Duration: 1 doses or times, Stop date: 09/18/11 10:15:00 Lactated 2012-0 No Hughes-Jason 1,000 mL, Memoria Ringers 3-30 Blevins Rate: l (Bolus) IV 14:16: [place] 1,000 He rmann 1,000 mL 00 Pu ml/hr, Infuse over: 1 hr, Route: IV, Total Volume: 1,000, Bolus Dose, Priority: STAT, Start date: 09/18/11 9:16:00, Duration: 1 doses or times, Stop date: 09/18/11 10:15:00 Lactated 2012-0 No Hughes-Jason 1,000 mL, Memoria Ringers 3-30 Blevins Rate: l (Bolus) IV 14:16: [place] 1,000 He rmann 1,000 mL 00 Pu ml/hr, Infuse over: 1 hr, Route: IV, Total Volume: 1,000, Bolus Dose, Priority: STAT, Start date: 09/18/11 9:16:00, Duration: 1 doses or times, Stop date: 09/18/11 10:15:00 Lactated 2012-0 No Hughes-Jason 1,000 mL, Memoria Ringers 3-30 Blevins Rate: l (Bolus) IV 14:16: Dawson 1,000 He rmann 1,000 mL 00 Pu ml/hr, Infuse over: 1 hr, Route: IV, Total Volume: 1,000, Bolus Dose, Priority: STAT, Start date: 09/18/11 9:16:00, Duration: 1 doses or times, Stop date: 09/18/11 10:15:00 Lactated 2012-0 No Hughes-Jason 1,000 mL, Memoria Ringers 3-30 [place]ins Rate: l (Bolus) IV 14:16: Dawson 1,000 He rmann 1,000 mL 00 Pu ml/hr, Infuse over: 1 hr, Route: IV, Total Volume: 1,000, Bolus Dose, Priority: STAT, Start date: 09/18/11 9:16:00, Duration: 1 doses or times, Stop date: 09/18/11 10:15:00 Sodium 2012-0 No Hughes-Jason 1,000 mL, Me moria Chloride 3-30 Blevins Rate: l 0.9% 14:06: Dawson 1,000 Vin (Bolus) IV 00 Pu ml/hr, 1000 mL Infuse over: 1 hr, Route: IV, kg, Total Volume: 1,000, Bolus Dose, Priority: STAT, Start date: 09/18/11 9:06:00, Duration: 1 doses or times, Stop date: 09/18/11 10:05:00 Sodium 2012-0 No Hughes-Jason 1,000 mL, Me moria Chloride 3-30 [place] Rate: l 0.9% 14:06: [place] 1,000 Vin (Bolus) IV 00 Pu ml/hr, 1000 mL Infuse over: 1 hr, Route: IV, kg, Total Volume: 1,000, Bolus Dose, Priority: STAT, Start date: 09/18/11 9:06:00, Duration: 1 doses or times, Stop date: 09/18/11 10:05:00 Sodium 2012-0 No Hughes-Jason 1,000 mL, Me moria Chloride 3-30 [place] Rate: l 0.9% 14:06: [place] 1,000 [place] (Bolus) IV 00 Pu ml/hr, 1000 mL Infuse over: 1 hr, Route: IV, kg, Total Volume: 1,000, Bolus Dose, Priority: STAT, Start date: 09/18/11 9:06:00, Duration: 1 doses or times, Stop date: 09/18/11 10:05:00 Sodium 2012-0 No Hughes-Jason 1,000 mL, Me moria Chloride 3-30 [place] Rate: l 0.9% 14:06: [place] 1,000 Vin (Bolus) IV 00 Pu ml/hr, 1000 mL Infuse over: 1 hr, Route: IV, kg, Total Volume: 1,000, Bolus Dose, Priority: STAT, Start date: 09/18/11 9:06:00, Duration: 1 doses or times, Stop date: 09/18/11 10:05:00 Sodium 2012-0 No Hughes-Jason 1,000 mL, Me moria Chloride 3-30 [place] Rate: l 0.9% 14:06: [place] 1,000 Vin [...] Memoria azole 3-30 on Allowed l 14:04: [place] 60 sulfamethox 2012-0 Yes Substituti Memoria azole 3-30 on Allowed l 14:04: Vin 60 sulfamethox 2012-0 Yes Substituti Memoria azole 3-30 on Allowed l 14:04: [place] 60 sulfamethox 2012-0 Yes Substituti Memoria azole 3-30 on Allowed l 14:04: [place] 58 Sodium 2012-0 No Hughes-Jason 1,000 mL, Me moria Chloride 3-30 [place] Rate: l 0.9% 13:56: [place] 1,000 Vin (Bolus) IV 00 Pu ml/hr, 1000 mL Infuse over: 1 hr, Route: IV, kg, Total Volume: 1,000, Bolus Dose, Priority: STAT, Start date: 09/18/11 8:56:00, Duration: 1 doses or times, Stop date: 09/18/11 9:55:00 Sodium 2012-0 No Hughes-Jason 1,000 mL, Me moria Chloride 3-30 [place] Rate: l 0.9% 13:56: [place] 1,000 [place] (Bolus) IV 00 Pu ml/hr, 1000 mL Infuse over: 1 hr, Route: IV, kg, Total Volume: 1,000, Bolus Dose, Priority: STAT, Start date: 09/18/11 8:56:00, Duration: 1 doses or times, Stop date: 09/18/11 9:55:00 Sodium 2012-0 No Hughes-Jason 1,000 mL, Me moria Chloride 3-30 [place] Rate: l 0.9% 13:56: [place] 1,000 Vin (Bolus) IV 00 Pu ml/hr, 1000 mL Infuse over: 1 hr, Route: IV, kg, Total Volume: 1,000, Bolus Dose, Priority: STAT, Start date: 09/18/11 8:56:00, Duration: 1 doses or times, Stop date: 09/18/11 9:55:00 Sodium 2012-0 No Hughes-Jason 1,000 mL, Me moria Chloride 3-30 [place] Rate: l 0.9% 13:56: [place] 1,000 [place] (Bolus) IV 00 Pu ml/hr, 1000 mL Infuse over: 1 hr, Route: IV, kg, Total Volume: 1,000, [place] Dose, Priority: STAT, Start date: 09/18/11 8:56:00, Duration: 1 doses or times, Stop date: 09/18/11 9:55:00 Sodium 2012-0 No Hughes-Jason 1,000 mL, Me moria Chloride 3-30 Blevins Rate: l 0.9% 13:56: Dawson 1,000 [place] (Bolus) IV 00 Pu ml/hr, 1000 mL Infuse over: 1 hr, Route: IV, kg, Total Volume: 1,000, [place] Dose, Priority: STAT, Start date: 09/18/11 8:56:00, Duration: 1 doses or times, Stop date: 09/18/11 9:55:00 clindamycin 2012-0 No Eber L 300 mg, 2 Memoria 3-21 Anabelle cap, l 21:00: Route: PO, [place] 00 Drug form: CAP, Q8H, Start date: [...] 3-21 Amelia cap, PO, l capsule 18:47: [place] BID, 60 Her braden 19 cap, Substituti on Allowed, CAP Colace 100 2011-0 Yes Luna 100 mg, 1 Memoria mg oral 3-21 Amelia cap, PO, l capsule 18:47: Zeeshan BID, 60 Her braden 19 cap, Substituti on Allowed, CAP Colace 100 2011-0 Yes Luna 100 mg, 1 Memoria mg oral 3-21 Amelia cap, PO, l capsule 18:47: [place] BID, 60 Her braden 19 cap, Substituti on Allowed, CAP clindamycin 2011-0 Yes Luna 300 mg, 2 Memoria 150 mg oral 3-21 Amelia cap, PO, l capsule 18:46: Zeeshan Q8H, 30 Her braden 55 cap, Substituti on Allowed, CAP clindamycin 2011-0 Yes Luna 300 mg, 2 Memoria 150 mg oral 3-21 Amelia cap, PO, l capsule 18:46: [place] Q8H, 30 Her braden 55 cap, Substituti [...] braden 55 cap, Substituti on Allowed, CAP [place] Yes Luna 1 tab, PO, Memoria 10/325 oral 3-21 Amelia Q4H, PRN, l tablet 18:46: Zeeshan 30 tab, Herm naeem 36 Pain, Substituti on Allowed, Maintenanc e, TAB [place] Yes Luna 1 tab, PO, Memoria 10/325 oral 3-21 Amelia Q4H, PRN, l tablet 18:46: [place] 30 tab, Herm naeem 36 Pain, Substituti on Allowed, Maintenanc e, TAB [place] Yes Luna 1 tab, PO, Memoria 10/325 oral 3-21 Amelia Q4H, PRN, l tablet 18:46: [place] 30 tab, Herm naeem 36 Pain, Substituti on Allowed, Maintenanc e, TAB [place] Yes Luna 1 tab, PO, Memoria 10/325 oral 3-21 Amelia Q4H, PRN, l tablet 18:46: Zeeshan 30 tab, Herm naeem 36 Pain, Substituti on Allowed, Maintenanc e, TAB [place] Yes Luna 1 tab, PO, Memoria 10/325 oral 3-21 Amelia Q4H, PRN, l tablet 18:46: Zeeshan 30 tab, Herm naeem 36 Pain, Substituti on Allowed, Maintenanc e, TAB [place] No Hollie Donavan 1 tab, Mendoza janice 10/325 oral 3-21 Mahi Route: PO, l tablet 09:00: Drug Form: Nidia nn 00 TAB, Q4H, Start date: 09/09/11 4:00:00, Duration: 30 day, Stop date: 10/09/11 0:00:00 [place] No Hollie Donavan 1 tab, Mendoza janice 10/325 oral 3-21 Mahi Route: PO, l tablet 09:00: Drug Form: Nidia nn 00 TAB, Q4H, Start date: 09/09/11 4:00:00, Duration: 30 day, Stop date: 10/09/11 0:00:00 [place] 2011-0 No Hollie Donavan 1 tab, Mendoza janice 10/325 oral 3-21 Mahi Route: PO, l tablet 09:00: Drug Form: Nidia nn 00 TAB, Q4H, Start date: 09/09/11 4:00:00, Duration: 30 day, Stop date: 10/09/11 0:00:00 [place] 2011-0 No Hollie Donavan 1 tab, Mendoza janice 10/325 oral 3-21 Mahi Route: PO, l tablet 09:00: Drug Form: Nidia nn 00 TAB, Q4H, Start date: 09/09/11 4:00:00, Duration: 30 day, Stop date: 10/09/11 0:00:00 [place] 2011-0 No Hollie Donavan 1 tab, Mendoza [...] 3-19 Omidvar tab, l 15:30: Route: PO, [place] 00 Drug form: TAB, Daily, Start date: 09/07/11 10:30:00, Duration: 30 day, Stop date: 10/07/11 9:00:00 enalapril 2012-0 No [place] 5 mg, 1 Mem oria 3-19 Omidvar tab, l 15:30: Route: PO, [place] 00 Drug form: TAB, Daily, Start date: 09/07/11 10:30:00, Duration: 30 day, Stop date: 10/07/11 9:00:00 enalapril 2012-0 No [place] 5 mg, 1 Mem oria 3-19 Omidvar tab, l 15:30: Route: PO, [place] 00 Drug form: TAB, Daily, Start date: [...] 3-19 Omidvar tab, l 15:30: Route: PO, [place] 00 Drug form: TAB, Daily, Start date: [...] Josefina 0.1 mL, l 14:19: Gavin Route: [place] 00 IVP, Drug form: INJ, Q2MIN, PRN Narcotic Reversal, Start date: 09/07/11 9:19:00, Duration: 8 doses or times, Stop date: Limited # of times ondansetron No Gayle 4 mg, 2 Memoria 3-19 Josefina mL, Route: l 14:19: [place] IVP, Drug Jake n 00 form: INJ, [...] Josefina Route: PO, l one 325 14:19: [place] Drug Form: He rmann mg-10 mg/15 00 [...] moria 3-19 Josefina 0.1 mL, l 14:19: Thor[place] Route: Vin 00 IVP, Drug form: INJ, Q2MIN, PRN Narcotic Reversal, Start date: 09/07/11 9:19:00, Duration: 8 doses or times, Stop date: Limited # of times ondansetron No Gayle 4 mg, 2 Memoria 3-19 Josefina mL, Route: l 14:19: [place] IVP, Drug Jake n 00 form: INJ, ONCE, PRN Nausea & Vomiting, Start date: 09/07/11 9:19:00 hydromorpho No Gayle 0.5 mg, Memoria ne 3-19 Josefina 0.25 mL, l 14:19: Gavin Route: [place] 00 IVP, Drug form: INJ, Q5Min, PRN Pain Score 4-6, Start date: 09/07/11 9:19:00, Duration: 5 doses or times, Stop date: Limited # of times acetaminoph No Gayle 15 mL, M emoria en-hydrocod 3-19 Josefina Route: PO, l one 325 14:19: [place] Drug Form: He rmann mg-10 mg/15 00 SOLN, Q4H, mL oral PRN Pain solution Score 4-6, Start date: 09/07/11 9:19:00, Duration: 1 day, Stop date: 09/08/11 8:00:00 flumazenil 2011-0 No Gayle 0.2 mg, 2 Memoria 3-19 Josefina mL, Route: l 14:19: [place] IVP, Drug Jake n 00 form: INJ, [...] Memoria 3-19 Josefina mL, Route: l 14:19: [place] IVP, Drug Jake n 00 form: INJ, [...] Josefina Route: PO, l one 325 14:19: [place] Drug Form: He rmann mg-10 mg/15 00 [...] moria 3-19 Josefina 0.1 mL, l 14:19: Thorp Route: [place] 00 IVP, Drug form: INJ, Q2MIN, PRN Narcotic Reversal, Start date: 09/07/11 9:19:00, Duration: 8 doses or times, Stop date: Limited # of times ondansetron 2012-0 No Gayle 4 mg, 2 Memoria 3-19 Josefina mL, Route: l 14:19: [place] IVP, Drug Jake n 00 form: INJ, ONCE, PRN Nausea & Vomiting, Start date: 09/07/11 9:19:00 hydromorpho No Gayle 0.5 mg, Memoria ne 3-19 Josefina 0.25 mL, l 14:19: Thorp Route: Vin 00 IVP, Drug form: INJ, [...] Memoria 3-19 Josefina mL, Route: l 14:19: [place] IVP, Drug Jake n 00 form: INJ, PRN, PRN Benzodiaze pine Reversal, Initial dose, Start date: 09/07/11 9:19:00, Duration: 1 day, Stop date: 09/08/11 9:18:00 naloxone 2011-0 No Gayle 0.04 mg, Me moria 3-19 Josefina 0.1 mL, l 14:19: Thor[place] Route: Vin 00 IVP, Drug form: INJ, Q2MIN, PRN Narcotic Reversal, Start date: 09/07/11 9:19:00, Duration: 8 doses or times, Stop date: Limited # of times ondansetron 0 No Gayle 4 mg, 2 Memoria 3-19 Josefina mL, Route: l 14:19: [place] IVP, Drug Jake n 00 form: INJ, [...] Rate: 125 l 1,000 mL 14:06: ml/hr, [place] 00 Infuse over: 8 hr, Route: IV, [...] Rate: 125 l 1,000 mL 14:06: ml/hr, [place] 00 Infuse over: 8 hr, Route: IV, Dosing Weight 68.182 kg, Total Volume: 1,000, Start date: 09/07/11 9:06:00, Duration: 30 day, Stop date: 10/07/11 9:05:00 Lactated 2011-0 No [place] 1,000 mL, Me moria Ringers IV 09-06 Omidvar Rate: 125 l 1,000 mL 14:06: ml/hr, [place] 00 Infuse over: 8 hr, Route: IV, Dosing Weight 68.182 kg, Total Volume: 1,000, Start date: 09/07/11 9:06:00, Duration: 30 day, Stop date: 10/07/11 9:05:00 Lactated 2011-0 No [place] 1,000 mL, Me moria Ringers IV 09-06 Omidvar Rate: 125 l 1,000 mL 14:06: ml/hr, [place] 00 Infuse over: 8 hr, Route: IV, Dosing Weight 68.182 kg, Total Volume: 1,000, Start date: 09/07/11 9:06:00, Duration: 30 day, Stop date: 10/07/11 9:05:00 clindamycin 2011- No Maximo R 600 mg, Memoria 3- Arias Route: l 13:31: IVPB, [place] 00 ONCE, Start date: 09/07/11 8:31:00, Stop date: 09/07/11 8:31:00 clindamycin 2011-0 No Amximo R 600 mg, Memoria 3- Arias Route: l 13:31: IVPB, [place] 00 ONCE, Start date: 09/07/11 8:31:00, Stop date: 09/07/11 8:31:00 clindamycin 2011-0 No Maximo R 600 mg, Memoria 3-19 Arias Route: l 13:31: IVPB, [place] 00 ONCE, Start date: 09/07/11 8:31:00, Stop date: 09/07/11 8:31:00 clindamycin 2011-0 No Maximo R 600 mg, Memoria 3-19 Arias Route: l 13:31: IVPB, [place] 00 ONCE, Start date: 09/07/11 8:31:00, Stop [...] day, Stop date: 10/06/11 8:24:00 senna 8.6 2012-0 No [place] 8.6 mg, [...] 3-17 Wong tab, l 04:00: Route: PO, [place] 00 Drug form: ECTAB, Daily, PRN Constipati [...] Duration: 30 day, Stop date: 10/04/11 18:10:00 [place] 2012-0 No Mahammad 1 tab, Memori a 10/325 oral 3-16 Simeon Route: PO, l tablet 17:00: Dez Drug Form: Tyrel rmann 00 TAB, Q4H, Start date: 09/04/11 12:00:00, Duration: 30 day, Stop date: 10/04/11 8:00:00 [place] 2012-0 No Mahammad 1 tab, Memori a 10/325 oral 3-16 Simeon Route: PO, l tablet 17:00: Dez Drug Form: Tyrel rmann 00 TAB, Q4H, Start date: 09/04/11 12:00:00, Duration: 30 day, Stop date: 10/04/11 8:00:00 [place] 2012-0 No Mahammad 1 tab, Memori a 10/325 oral 3-16 Simeon Route: PO, l tablet 17:00: Dez Drug Form: Tyrel rmann 00 TAB, Q4H, Start date: 09/04/11 12:00:00, Duration: 30 day, Stop date: 10/04/11 8:00:00 [place] 2012-0 No Mahammad 1 tab, Memori a 10/325 oral 3-16 Simeon Route: PO, l tablet 17:00: Dez Drug Form: Tyrel rmann 00 TAB, Q4H, Start date: 09/04/11 12:00:00, Duration: 30 day, Stop date: 10/04/11 8:00:00 [place] 2012-0 No Mahammad 1 tab, Memori a [...] Kavon mL, Route: l 14:50: IVP, Drug [place] 00 form: INJ, ONCE, PRN Nausea & Vomiting, Start date: 09/04/11 9:50:00, Duration: 1 doses or times, Stop date: Limited # of times ropivacaine 2011-0 No Rosalino Dosing: Memoria 0.2% in NS 3-16 Kavon 10cc/hr, l - site 1 14:50: Route: [place] 400 mL 00 NERVE BLOCK, Start date: 09/04/11 9:50:00 400 mL, Duration: 30 day, Stop date: 10/04/11 9:49:00 naloxone 2012-0 No Rosalino 0.04 mg, Me moria 3-16 Kavon 0.1 mL, l 14:50: Route: [place] 00 IVP, Drug form: INJ, Q2MIN, PRN Narcotic Reversal, Start date: 09/04/11 9:50:00, Duration: 30 day, Stop date: 10/04/11 9:49:00 ondansetron 2011-0 No Rosalino 4 mg, 2 Memoria 3-16 Kavon mL, Route: l 14:50: IVP, Drug [place] 00 form: INJ, ONCE, PRN Nausea & Vomiting, Start date: 09/04/11 9:50:00, Duration: 1 doses or times, Stop date: Limited # of times ropivacaine 2011-0 No Rosalino Dosing: Memoria 0.2% in NS 3-16 Kavon 10cc/hr, l - site 1 14:50: Route: [place] 400 mL 00 NERVE BLOCK, Start date: [...] 3-16 Kavon 0.1 mL, l 14:50: Route: [place] 00 IVP, Drug form: INJ, Q2MIN, PRN [...] 3-16 Kavon 0.1 mL, l 14:50: Route: [place] 00 IVP, Drug form: INJ, Q2MIN, PRN Narcotic Reversal, Start date: 09/04/11 9:50:00, Duration: 30 day, Stop date: 10/04/11 9:49:00 ondansetron No Rosalino 4 mg, 2 Memoria 3-16 Kavon mL, Route: l 14:50: IVP, Drug [place] 00 form: INJ, ONCE, PRN Nausea & [...] 3-16 Kavon 0.1 mL, l 14:50: Route: [place] 00 IVP, Drug form: INJ, Q2MIN, PRN Narcotic Reversal, Start date: 09/04/11 9:50:00, Duration: 30 day, Stop date: 10/04/11 9:49:00 [place] 2011-0 No [place] 1 tab, Memoria 10/325 oral 3-16 Omidvar Route: PO, l tablet 14:49: Drug Form: Nidia nn 00 TAB, Q4H, PRN Pain, Start date: 09/04/11 9:49:00, Stop date: 10/04/11 9:48:00 [place] 2011-0 No [place] 1 tab, Memoria 10/325 oral 3-16 Omidvar Route: PO, l tablet 14:49: Drug Form: Nidia nn 00 TAB, Q4H, PRN Pain, Start date: 09/04/11 9:49:00, Stop date: 10/04/11 9:48:00 [place] 2011-0 No [place] 1 tab, Memoria 10/325 oral 3-16 Omidvar Route: PO, l tablet 14:49: Drug Form: Nidia nn 00 TAB, Q4H, PRN Pain, Start date: 09/04/11 9:49:00, Stop date: 10/04/11 9:48:00 [place] 2011-0 No [place] 1 tab, Memoria 10/325 oral 3-16 Omidvar Route: PO, l tablet 14:49: Drug Form: Nidia nn 00 TAB, Q4H, PRN Pain, Start date: 09/04/11 9:49:00, Stop date: 10/04/11 9:48:00 [place] 2011-0 No [place] 1 tab, Memoria 10/325 [...] Beck 0.5 mL, l 13:37: Hayden Route: [place] IVP, Drug form: INJ, Q30Min, PRN Other [...] 3-16 Kavon 0.25 mL, l 13:37: Route: [place] 00 IVP, Drug form: INJ, Q5Min, PRN [...] Beck 0.1 mL, l 13:37: Hayden Route: [place] IVP, Drug form: INJ, Q2MIN, PRN Narcotic [...] 3-16 Kavon 0.25 mL, l 13:37: Route: [place] IVP, Drug form: INJ, Q5Min, PRN Pain [...] Beck 0.1 mL, l 13:37: Hayden Route: [place] IVP, Drug form: INJ, Q2MIN, PRN Narcotic Reversal, Start date: 09/04/11 8:37:00, Duration: 8 doses or times, Stop date: Limited # of times meperidine 2011-0 No Hollie 12.5 mg, Me moria 3-16 Beck 0.5 mL, l 13:37: Hayden Route: [place] IVP, Drug form: INJ, Q30Min, PRN Other [...] 3-15 Anabelle mL, Route: l 16:00: IVPB, [place] [id number], Start date: 09/03/11 11:00:00, Duration: 30 day, Stop date: 10/03/11 8:00:00 clindamycin 2011-0 No Eber L 600 mg, 4 Memoria 3-15 Anabelle mL, Route: l 16:00: IVPB, Vin [id number], Start date: 09/03/11 11:00:00, Duration: 30 day, Stop date: 10/03/11 8:00:00 clindamycin 2012-0 No Eber L 600 mg, 4 Memoria 3-15 Anabelle mL, Route: l 16:00: IVPB, [place] 00 [id number], Start date: 09/03/11 11:00:00, Duration: 30 day, Stop date: 10/03/11 8:00:00 clindamycin 2012-0 No Eber L 600 mg, 4 Memoria 3-15 Anabelle mL, Route: l 16:00: IVPB, [place] [id number], Start date: 09/03/11 11:00:00, Duration: 30 [...] date: 09/03/11 8:39:00, Stop date: 09/03/11 8:39:00 [place] 5/325 2011-0 No Rosalino 1 tab, M emoria oral tablet - [facility] Route: PO, l 05:00: Drug Form: [place] 00 TAB, Q4H, Start date: 09/03/11 0:00:00, Duration: 30 day, Stop date: 10/02/11 20:00:00 [place] 5/325 2011-0 No Rosalino 1 tab, M emoria oral tablet - Kavon Route: PO, l 05:00: Drug Form: [place] 00 TAB, Q4H, Start date: 09/03/11 0:00:00, Duration: 30 day, Stop date: 10/02/11 20:00:00 [place] 5/325 2011-0 No Rosalino 1 tab, M emoria oral tablet - [facility] Route: PO, l 05:00: Drug Form: [place] 00 TAB, Q4H, Start date: 09/03/11 0:00:00, Duration: 30 day, Stop date: 10/02/11 20:00:00 [place] 5/325 2011-0 No Rosalino 1 tab, M emoria oral tablet - [facility] Route: PO, l 05:00: Drug Form: [place] 00 TAB, Q4H, Start date: 09/03/11 0:00:00, Duration: 30 day, Stop date: 10/02/11 20:00:00 [place] 5/325 2011-0 No Rosalino 1 tab, M emoria oral tablet - [facility] Route: PO, l 05:00: Drug Form: [...] 3-15 Anabelle cap, l 02:00: Route: PO, [place] 00 Drug form: CAP, Bedtime, Start date: [...] 3-14 Anabelle cap, l 17:00: Route: PO, [place] 00 Drug form: ERCAP, Daily, Give qAM after today's dose., Start date: 09/02/11 12:00:00, Duration: 30 day, Stop date: 10/02/11 9:00:00 Effexor XR 2012-0 No Eber L 75 mg, 1 Memoria 3-14 Anabelle cap, l 17:00: Route: PO, [place] 00 Drug form: ERCAP, Daily, Give qAM [...] 3-14 Anabelle cap, l 17:00: Route: PO, [place] 00 Drug form: ERCAP, Daily, Give qAM after today's dose., Start date: 09/02/11 12:00:00, Duration: 30 day, Stop date: 10/02/11 9:00:00 Effexor XR 2011- No Eber L 75 mg, 1 Memoria 09-01 Anabelle cap, l 17:00: Route: PO, Vin 00 Drug form: ERCAP, Daily, Give qAM after today's dose., Start date: 09/02/11 12:00:00, Duration: 30 day, Stop date: 10/02/11 9:00:00 [place] 5/325 2011-0 No Rosalino 1 tab, M emoria oral tablet 09-01 Kavon Route: PO, l 16:25: Drug Form: Vin 00 TAB, Q4H, PRN Pain, Start date: 09/02/11 11:25:00, Duration: 30 day, Stop date: 10/02/11 11:24:00 [place] 5/325 2011-0 No Rosalino 1 tab, M emoria oral tablet 09-01 Kavon Route: PO, l 16:25: Drug Form: Vin 00 TAB, Q4H, PRN Pain, Start date: 09/02/11 11:25:00, Duration: 30 day, Stop date: 10/02/11 11:24:00 [place] 5/325 2011-0 No Rosalino 1 tab, M emoria oral tablet 09-01 Kavon Route: PO, l 16:25: Drug Form: [place] 00 TAB, Q4H, PRN Pain, Start date: 09/02/11 11:25:00, Duration: 30 day, Stop date: 10/02/11 11:24:00 [place] 5/325 2011-0 No Rosalino 1 tab, M emoria oral tablet 09-01 Kavon Route: PO, l 16:25: Drug Form: [place] 00 TAB, Q4H, PRN Pain, Start date: 09/02/11 11:25:00, Duration: 30 day, Stop date: 10/02/11 11:24:00 [place] 5/325 2011-0 No Rosalino 1 tab, M emoria oral tablet 09-01 Kavon Route: PO, l 16:25: Drug Form: [place] 00 TAB, Q4H, PRN Pain, Start date: [...] Omidvar mL, Route: l 16:15: IVPB, Drug [place] 00 form: INJ, ONCE, Start date: 09/02/11 11:15:00, Stop date: 09/02/11 11:15:00 magnesium 2011-0 No [place] 4 gm, 50 Me moria sulfate 3-14 Omidvar mL, Route: l 16:15: IVPB, Drug [place] 00 form: INJ, ONCE, Start date: 09/02/11 [...] 3-14 Anabelle Route: l 14:00: IVPB, Drug [place] 00 form: INJ, [id number], Start date: 09/02/11 9:00:00, Duration: 30 day, Stop date: 10/01/11 21:00:00 Lovenox 2012-0 No Missael 40 mg, 0.4 Mem oria 3-14 Movva mL, Route: l 14:00: SUB-Q, [place] Drug form: INJ, Daily, Start date: 09/02/11 9:00:00, Duration: 30 day, Stop date: 10/01/11 9:00:00 vancomycin 2011-0 No Eber L 1 gm, Memoria 3-14 Anabelle Route: l 14:00: IVPB, Drug form: INJ, [id number], Start date: 09/02/11 9:00:00, Duration: 30 day, Stop date: 10/01/11 21:00:00 Lovenox 2012-0 No Missael 40 mg, 0.4 Mem oria 3-14 Movva mL, Route: l 14:00: SUB-Q, Vin Drug form: INJ, Daily, Start date: 09/02/11 9:00:00, Duration: 30 day, Stop date: 10/01/11 9:00:00 vancomycin 2011-0 No Eber L 1 gm, Memoria 3-14 Anabelle Route: l 14:00: IVPB, Drug form: INJ, [id number], Start date: 09/02/11 9:00:00, Duration: 30 day, Stop date: 10/01/11 21:00:00 Lovenox 2012-0 No Missael 40 mg, 0.4 Mem oria 3-14 Movva mL, Route: l 14:00: SUB-Q, Vin Drug form: INJ, Daily, Start date: 09/02/11 9:00:00, Duration: 30 day, Stop date: 10/01/11 9:00:00 vancomycin 2011-0 No Eber L 1 gm, Memoria 3-14 Anabelle Route: l 14:00: IVPB, Drug form: INJ, [id number], Start date: 09/02/11 9:00:00, Duration: 30 day, Stop date: 10/01/11 21:00:00 Lovenox 2012-0 No Missael 40 mg, 0.4 Mem oria 3-14 Movva mL, Route: l 14:00: SUB-Q, Vin 00 Drug form: INJ, Daily, Start date: 09/02/11 9:00:00, Duration: 30 day, Stop date: 10/01/11 9:00:00 vancomycin 2011-0 No Eber L 1 gm, Memoria 3-14 Anabelle Route: l 14:00: IVPB, Drug [place] 00 form: INJ, [id number], Start date: 09/02/11 9:00:00, Duration: 30 day, Stop date: 10/01/11 21:00:00 clindamycin 2011-0 No Eber L 600 mg, 4 Memoria (SCIP) 3-14 Anabelle mL, Route: l 10:00: IVPB, [place] 00 [id number], Start date: 09/02/11 5:00:00, Duration: [...] 3-14 Anabelle mL, Route: l 10:00: IVPB, [place] 00 [id number], Start date: 09/02/11 5:00:00, Duration: [...] Brandon mL, Route: l 04:00: Connally IVPB, [place] 00 [id number], Start date: 09/01/11 23:00:00, Duration: [...] Brandon mL, Route: l 04:00: Connally IVPB, [place] 00 [id number], Start date: 09/01/11 23:00:00, Duration: 3 doses or times, Stop date: 09/02/11 15:00:00 clindamycin 2012-0 No Yury 600 mg, 4 Memoria (SCIP) 3-14 Brandon mL, Route: l 04:00: Connally IVPB, Vin 00 [id number], Start date: 09/01/11 23:00:00, Duration: 3 doses or times, Stop date: 09/02/11 15:00:00 insulin 2012-0 No [place] 15 unit, Mendoza janice isophane-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 3-14 Omidvar 0.15 mL, l H 02:00: Route: [place] 00 SUB-Q, Drug form: INJ, Q12H, Start date: 09/01/11 21:00:00, Stop date: 10/01/11 9:00:00 insulin 2011-0 No [place] 15 unit, Mendoza janice isophane-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ER[employer] 3-14 Omidvar 0.15 mL, l H 02:00: Route: Vin 00 SUB-Q, Drug form: INJ, Q12H, Start date: 09/01/11 21:00:00, Stop date: 10/01/11 9:00:00 insulin 2011-0 No [place] 15 unit, Mendoza janice isophane-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ER[employer] 3-14 Omidvar 0.15 mL, l H 02:00: Route: Vin 00 SUB-Q, Drug form: INJ, Q12H, Start date: 09/01/11 21:00:00, Stop date: 10/01/11 9:00:00 insulin 2011-0 No [place] 15 unit, Mendoza janice isophane-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ER[employer] 3-14 Omidvar 0.15 mL, l H 02:00: Route: [place] SUB-Q, Drug form: INJ, Q12H, Start date: 09/01/11 21:00:00, Stop date: 10/01/11 9:00:00 insulin 2011-0 No [place] 15 unit, Mendoza janice isophane-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ER[employer] 3-14 Omidvar 0.15 mL, l H 02:00: Route: Vin 00 SUB-Q, Drug form: INJ, Q12H, Start date: 09/01/11 21:00:00, Stop date: 10/01/11 9:00:00 labetalol No Mariaelena-Corea 5 mg, Me moria 3-14 Barbra Route: l 01:07: Feliciano IVP, [place] 00 Q5Min, PRN Elevated BP, Start date: [...] 3-14 Barbra Route: l 01:07: Feliciano IVP, [place] 00 Q5Min, PRN Pain Score 4-6, Start date: 09/01/11 20:07:00, Duration: 5 doses or times, Stop date: Limited # of times naloxone No Mariaelena-Corea 0.04 mg, Memoria 3-14 Barbra Route: l 01:07: Feliciano IVP, [place] 00 Q2MIN, PRN Narcotic Reversal, Start date: 09/01/11 20:07:00, Duration: 8 doses or times, Stop date: Limited # of times flumazenil No Mariaelena-Corea 0.2 mg, Memoria 3-14 Barbra Route: l 01:07: Feliciano IVP, PRN, [place] 00 PRN Benzodiaze pine Reversal, Initial dose, [...] Barbra Route: l 01:07: Feliciano IVP, PRN, [place] 00 PRN Benzodiaze pine Reversal, Initial dose, Start date: 09/01/11 20:07:00, Duration: 30 day, Stop date: 10/01/11 20:06:00 ondansetron No Mariaelena-Corea 4 mg, Memoria 3-14 Barbra Route: l 01:07: Feliciano IVP, ONCE, [place] 00 PRN Nausea & Vomiting, Start date: 09/01/11 20:07:00 labetalol No Mariaelena-Corea 5 mg, Me moria 3-14 Barbra Route: l 01:07: Feliciano IVP, [place] 00 Q5Min, PRN Elevated BP, Start date: [...] 3-14 Barbra Route: l 01:07: Feliciano IVP, [place] 00 Q2MIN, PRN Narcotic Reversal, Start date: 09/01/11 20:07:00, Duration: 8 doses or times, Stop date: Limited # of times flumazenil No Mariaelena-Corea 0.2 mg, Memoria 3-14 [place] Route: l 01:07: Feliciano IVP, PRN, [place] 00 PRN Benzodiaze pine Reversal, Initial dose, [...] 3-14 [place] Route: l 01:07: Feliciano IVP, [place] 00 Q5Min, PRN Elevated BP, Start date: 09/01/11 20:07:00, Duration: 4 doses or times, Stop date: Limited # of times hydromorpho No Mariaelena-Corea 0.5 mg, Memoria ne 3-14 [place] Route: l 01:07: Feliciano IVP, [place] 00 Q5Min, PRN Pain Score 4-6, Start date: 09/01/11 20:07:00, Duration: 5 doses or times, Stop date: Limited # of times naloxone No Mariaelena-Corea 0.04 mg, Memoria 3-14 [place] Route: l 01:07: Feliciano IVP, [place] 00 Q2MIN, PRN Narcotic Reversal, Start date: [...] 3-14 [place] Route: l 01:07: Feliciano IVP, [place] 00 Q5Min, PRN Elevated BP, Start date: 09/01/11 20:07:00, Duration: 5 doses or times, Stop date: Limited # of times hydrALAZINE No Mariaelena-Corea 5 mg, Memoria 3-14 [place] Route: l 01:07: Feliciano IVP, [place] 00 Q5Min, PRN Elevated BP, Start date: 09/01/11 20:07:00, Duration: 4 doses or times, Stop date: Limited # of times hydromorpho No Mariaelena-Corea 0.5 mg, Memoria ne 3-14 [place] Route: l 01:07: Feliciano IVP, [place] 00 Q5Min, PRN Pain Score 4-6, Start date: 09/01/11 20:07:00, Duration: 5 doses or times, Stop date: Limited # of times naloxone No Mariaelena-Corea 0.04 mg, Memoria 3-14 [place] Route: l 01:07: Feliciano IVP, [place] 00 Q2MIN, PRN Narcotic Reversal, Start date: [...] [place] Route: l 01:07: Feliciano IVP, ONCE, [place] 00 PRN Nausea & Vomiting, Start date: 09/01/11 20:07:00 vancomycin No Mele 1 gm, Mem oria 3-14 [place] Route: l 01:00: IVPB, Drug [place] 00 form: INJ, [id number], Start date: 09/01/11 20:00:00, Duration: 30 day, Stop date: 10/01/11 8:00:00 vancomycin No Mele 1 gm, Mem oria 3-14 [place] Route: l 01:00: IVPB, Drug Vin 00 form: INJ, [id number], Start date: 09/01/11 20:00:00, Duration: 30 day, Stop date: 10/01/11 8:00:00 vancomycin No Mele 1 gm, Mem oria 3-14 [place] Route: l 01:00: IVPB, Drug [place] 00 form: INJ, [id number], Start date: 09/01/11 20:00:00, Duration: 30 day, Stop date: 10/01/11 8:00:00 vancomycin No Mele 1 gm, Mem oria 3-14 [place] Route: l 01:00: IVPB, Drug [place] 00 form: INJ, [id number], Start date: 09/01/11 20:00:00, Duration: 30 day, Stop date: 10/01/11 8:00:00 vancomycin No Mele 1 gm, Mem oria 3-14 [place] Route: l 01:00: IVPB, Drug Vin 00 form: INJ, [id number], Start date: 09/01/11 20:00:00, Duration: 30 day, Stop date: 10/01/11 8:00:00 Lactated 2011-0 No Charbel A 1,000 mL, Memoria Ringers IV -14 Wong Rate: 125 l 1,000 mL 00:55: ml/hr, [place] 00 Infuse over: 8 hr, Route: IV, [...] Rate: 125 l 1,000 mL 00:55: ml/hr, [place] 00 Infuse over: 8 hr, Route: IV, [...] 30 day, Stop date: 10/01/11 19:54:00 vancomycin 2012-0 No Missael 1 gm, Memor ia 3-14 [place] Route: l 00:00: IVPB, Drug [place] 00 form: INJ, [id number], Start date: 09/01/11 19:00:00, Duration: 30 day, Stop date: 10/01/11 7:00:00 vancomycin 2011-0 No Missael 1 gm, Memor ia 3-14 [place] Route: l 00:00: IVPB, Drug [place] 00 form: INJ, [id number], Start date: 09/01/11 19:00:00, Duration: 30 day, Stop date: 10/01/11 7:00:00 vancomycin 2011-0 No Missael 1 gm, Memor ia 3-14 Movva Route: l 00:00: IVPB, Drug [place] 00 form: INJ, [id number], Start date: 09/01/11 19:00:00, Duration: 30 day, Stop date: 10/01/11 7:00:00 vancomycin 2011-0 No Missael 1 gm, Memor ia 3-14 Movva Route: l 00:00: IVPB, Drug Vin 00 form: INJ, [id number], Start date: 09/01/11 19:00:00, Duration: 30 day, Stop date: 10/01/11 7:00:00 vancomycin 2011-0 No Missael 1 gm, Memor ia 3-14 Movva Route: l 00:00: IVPB, Drug Vin 00 form: INJ, [id number], Start date: 09/01/11 19:00:00, Duration: 30 day, Stop date: 10/01/11 7:00:00 insulin 2011-0 No Missael 6 unit, Memori a aspart 3-13 Movva 0.06 mL, l 23:23: Route: [place] 00 SUB-Q, Drug form: SOLN, TID-Before Meals, [...] Movva mL, Route: l 23:23: IVP, Drug [place] 00 Form: INJ, PRN, PRN Blood Glucose [...] Movva Route: IM, l 23:23: Drug form: [place] 00 PDR/INJ, PRN, PRN Blood Glucose Results, [...] 3-13 Movva 0.06 mL, l 23:23: Route: [place] 00 SUB-Q, Drug form: SOLN, TID-Before Meals, [...] Movva Route: IM, l 23:23: Drug form: [place] 00 PDR/INJ, PRN, PRN Blood Glucose Results, Start date: 09/01/11 18:23:00, Duration: 30 day, Stop date: 10/01/11 18:22:00 Dextrose 2011-0 No Missael 25 gm, 50 Mem oria 50% Syringe 3-13 Movva mL, Route: l 23:23: IVP, Drug [place] 00 Form: INJ, PRN, PRN Blood Glucose [...] Movva mL, Route: l 23:23: IVP, Drug [place] 00 Form: INJ, PRN, PRN Blood Glucose Results, Start date: 09/01/11 18:23:00, Duration: 30 day, Stop date: 10/01/11 18:22:00 morphine 2012-0 No Daja Shannan 2 mg, 1 M emoria Sulfate 3-13 Beni mL, Route: l 21:14: IVP, Drug [place] 00 form: INJ, Q4H, PRN Severe Pain, Start date: 09/01/11 16:14:00, Stop date: 10/01/11 16:13:00 morphine 2011-0 No Daja Shannan 2 mg, 1 M emoria Sulfate 3-13 Beni mL, Route: l 21:14: IVP, Drug [place] 00 form: INJ, Q4H, PRN Severe Pain, [...] mL, Me moria Ringers IV 3-13 Manuel Allison Rate: 100 l 1,000 mL 19:03: ml/hr, [place] 00 Infuse over: 10 hr, Route: IV, Dosing Weight 68.182 kg, Total Volume: 1,000, Start date: 09/01/11 14:03:00, Duration: 30 day, Stop date: 10/01/11 14:02:00 Lactated 2012-0 No Cesar 1,000 mL, Me moria Ringers IV 3-13 Manuel Allison Rate: 100 l 1,000 mL 19:03: ml/hr, Vin 00 Infuse over: 10 hr, Route: IV, Dosing Weight 68.182 kg, Total Volume: 1,000, Start date: 09/01/11 14:03:00, Duration: 30 day, Stop date: 10/01/11 14:02:00 Lactated 2012-0 No Cesar 1,000 mL, Me moria Ringers IV 3-13 Manuel Allison Rate: 100 l 1,000 mL 19:03: ml/hr, Vin 00 Infuse over: 10 hr, Route: IV, Dosing Weight 68.182 kg, Total Volume: 1,000, Start date: 09/01/11 14:03:00, Duration: 30 day, Stop date: 10/01/11 14:02:00 Lactated 2012-0 No Cesar 1,000 mL, Me moria Ringers IV 3-13 Manuel Allison Rate: 100 l 1,000 mL 19:03: ml/hr, [place] 00 Infuse over: 10 hr, Route: IV, Dosing Weight 68.182 kg, Total Volume: 1,000, Start date: 09/01/11 14:03:00, Duration: 30 day, Stop date: 10/01/11 14:02:00 Lactated 2012-0 No Cesar 1,000 mL, Me moria Ringers IV 3-13 Manuel Allison Rate: 100 l 1,000 mL 19:03: ml/hr, [place] 00 Infuse over: 10 hr, Route: IV, [...] Madden 0.08 mL, l 15:28: Gurinder Route: [place] 00 SUB-Q, Drug form: SOLN, ONCE, Priority: STAT, Start date: 09/01/11 10:28:00, Stop date: 09/01/11 10:28:00 Insulin 2012-0 No [place] 8 unit, Memoria regular 3-13 Madden 0.08 mL, l 15:28: Gurinder Route: [place] 00 SUB-Q, Drug form: SOLN, ONCE, Priority: STAT, Start date: 09/01/11 10:28:00, Stop date: 09/01/11 10:28:00 Insulin 2012-0 No [place] 8 unit, Memoria regular 3-13 Madden 0.08 mL, l 15:28: Gurinder Route: [place] 00 SUB-Q, Drug form: SOLN, ONCE, Priority: STAT, Start date: 09/01/11 10:28:00, Stop date: 09/01/11 10:28:00 Sodium 2012-0 No [place] 1,000 mL, Memori a Chloride 3-13 Madden Rate: l 0.9% 14:53: Gurinder 1,000 [place] ([place]) IV 00 ml/hr, 1,000 mL Infuse over: 1 hr, Route: IV, Dosing Weight 68.18 kg, Total Volume: 1,000, [place] Dose, Priority: STAT, Start date: 09/01/11 9:53:00, Duration: 1 doses or times, Stop date: 09/01/11 10:52:00 Sodium 2012-0 No [place] 1,000 mL, Memori a Chloride 3-13 Madden Rate: l 0.9% 14:53: Gurinder 1,000 [place] (Bolus) IV 00 ml/hr, 1,000 mL Infuse over: 1 hr, Route: IV, Dosing Weight 68.18 kg, Total Volume: 1,000, [place] Dose, Priority: STAT, Start date: 09/01/11 9:53:00, Duration: 1 doses or times, Stop date: 09/01/11 10:52:00 Sodium 2012-0 No [place] 1,000 mL, Memori a Chloride 3-13 Madden Rate: l 0.9% 14:53: Gurinder 1,000 [place] (Bolus) IV 00 ml/hr, 1,000 mL Infuse over: 1 hr, Route: IV, Dosing Weight 68.18 kg, Total Volume: 1,000, [place] Dose, Priority: STAT, Start date: 09/01/11 9:53:00, Duration: 1 doses or times, Stop date: 09/01/11 10:52:00 Sodium 2012-0 No [place] 1,000 mL, Memori a Chloride 3-13 Madden Rate: l 0.9% 14:53: Gurinder 1,000 [place] (Bolus) IV 00 ml/hr, 1,000 mL Infuse over: 1 hr, Route: IV, Dosing Weight 68.18 kg, Total Volume: 1,000, [place] Dose, Priority: STAT, Start date: 09/01/11 9:53:00, Duration: 1 doses or times, Stop date: 09/01/11 10:52:00 Sodium 2012-0 No [place] 1,000 mL, Memori a Chloride 3-13 Madden Rate: l 0.9% 14:53: Gurinder 1,000 [place] (Bolus) IV 00 ml/hr, 1,000 mL Infuse [...] Stop date: 09/01/11 8:20:00 clindamycin 2012-0 No Uj 600 mg, 4 Memoria 3-13 Nikki mL, [...] 3-13 [place] Rate: l 0.9% 10:41: 1,000 [place] (Bolus) IV 00 ml/hr, 1000 mL Infuse over: 1 hr, Route: IV, Dosing Weight 68.182 kg, Total Volume: 1,000, [place] Dose, Priority: STAT, Start date: 09/01/11 5:41:00, Duration: 1 doses or times, Stop date: 09/01/11 6:40:00 Sodium 2011-0 No Bee L 1,000 mL, M emoria Chloride 3- [place] Rate: l 0.9% 10:41: 1,000 [place] (Bolus) IV 00 ml/hr, 1000 mL Infuse over: 1 hr, Route: IV, Dosing Weight 68.182 kg, Total Volume: 1,000, [place] Dose, Priority: STAT, Start date: 09/01/11 5:41:00, Duration: 1 doses or times, Stop date: 09/01/11 6:40:00 Sodium 2011-0 No Bee L 1,000 mL, M emoria Chloride 3- [place] Rate: l 0.9% 10:41: 1,000 [place] (Bolus) IV 00 ml/hr, 1000 mL Infuse [...] - [place] Rate: l 0.9% 10:41: 1,000 [place] (Bolus) IV 00 ml/hr, 1000 mL Infuse [...] 08-31 [place] Route: l 09:06: IVP, ONCE, [place] 00 Priority: STAT, Start date: 09/01/11 4:06:00, Stop date: 09/01/11 4:06:00 ondansetron 2011-0 No Bee L 4 mg, Memoria - [place] Route: l 09:06: IVP, Drug Vin 00 form: INJ, ONCE, Priority: STAT, Start date: 09/01/11 4:06:00, Stop date: 09/01/11 4:06:00 morphine 2011-0 No Bee L 4 mg, Mem oria Sulfate - [place] Route: l 09:06: IVP, ONCE, [place] 00 Priority: STAT, Start date: 09/01/11 4:06:00, Stop date: 09/01/11 4:06:00 ondansetron 2011-0 No Bee L 4 mg, Memoria - [place] Route: l 09:06: IVP, Drug [place] 00 form: INJ, ONCE, Priority: STAT, Start date: 09/01/11 4:06:00, Stop date: 09/01/11 4:06:00 morphine 2012-0 No Bee L 4 mg, Mem oria Sulfate 3-13 [place] Route: l 09:06: IVP, ONCE, [place] 00 Priority: STAT, Start date: 09/01/11 4:06:00, Stop date: 09/01/11 4:06:00 ondansetron 2011-0 No Bee L 4 mg, Memoria 3-13 [place] Route: l 09:06: IVP, Drug Vin 00 form: INJ, ONCE, Priority: STAT, Start date: 09/01/11 4:06:00, Stop date: 09/01/11 4:06:00 morphine 2011-0 No Bee L 4 mg, Mem oria Sulfate 3-13 [place] Route: l 09:06: IVP, ONCE, [place] 00 Priority: STAT, Start date: 09/01/11 4:06:00, Stop date: 09/01/11 4:06:00 ondansetron 2011-0 No Bee L 4 mg, Memoria 3-13 [place] Route: l 09:06: IVP, Drug [place] 00 form: INJ, ONCE, Priority: STAT, Start date: 09/01/11 4:06:00, Stop date: 09/01/11 4:06:00 morphine 2011-0 No Bee L 4 mg, Mem oria Sulfate 3-13 [place] Route: l 09:06: IVP, ONCE, [place] 00 Priority: STAT, Start date: 09/01/11 4:06:00, Stop date: 09/01/11 4:06:00 Sodium 2011-0 No Bee L 1,000 mL, M emoria Chloride 3- [place] Rate: l 0.9% 08:42: 1,000 [place] (Bolus) IV 00 ml/hr, 1000 mL Infuse over: 1 hr, Route: IV, Dosing Weight 68.182 kg, Total Volume: 1,000, [place] Dose, Priority: STAT, Start date: 09/01/11 3:42:00, Duration: 1 doses or times, Stop date: 09/01/11 4:41:00 Sodium 2011-0 No Bee L 1,000 mL, M emoria Chloride 3- [place] Rate: l 0.9% 08:42: 1,000 [place] (Bolus) IV 00 ml/hr, 1000 mL Infuse over: 1 hr, Route: IV, Dosing Weight 68.182 kg, Total Volume: 1,000, [place] Dose, Priority: STAT, Start date: 09/01/11 3:42:00, Duration: 1 doses or times, Stop date: 09/01/11 4:41:00 Sodium 2011-0 No Bee L 1,000 mL, M emoria Chloride 3-13 [place] Rate: l 0.9% 08:42: 1,000 Vin ([place]ol[place]) IV 00 ml/hr, 1000 mL Infuse over: 1 hr, Route: IV, Dosing Weight 68.182 kg, Total Volume: 1,000, [place] Dose, Priority: STAT, Start date: 09/01/11 3:42:00, Duration: 1 doses or times, Stop date: 09/01/11 4:41:00 Sodium 2011-0 No Bee L 1,000 mL, M emoria Chloride 3- [place] Rate: l 0.9% 08:42: 1,000 [place] (Bolus) IV 00 ml/hr, 1000 mL Infuse over: 1 hr, Route: IV, Dosing Weight 68.182 kg, Total Volume: 1,000, [place] Dose, Priority: STAT, Start date: 09/01/11 3:42:00, Duration: 1 doses or times, Stop date: 09/01/11 4:41:00 Sodium 2011-0 No Bee L 1,000 mL, M emoria Chloride 3-13 [place] Rate: l 0.9% 08:42: 1,000 Vin ([place]) IV 00 ml/hr, 1000 mL Infuse over: 1 hr, Route: IV, Dosing Weight 68.182 kg, Total Volume: 1,000, [place] Dose, Priority: STAT, Start date: 09/01/11 3:42:00, Duration: 1 doses or times, Stop date: 09/01/11 4:41:00 Insulin 2011-0 No Bee L 8 unit, Ak moria regular 3- [place] 0.08 mL, l 08:30: Route: [place] 00 IVP, Drug form: SOLN, ONCE, Priority: STAT, Start date: 09/01/11 3:30:00, Stop date: 09/01/11 3:30:00 Insulin 2012-0 No Bee L 8 unit, Me moria regular 3-13 [place] 0.08 mL, l 08:30: Route: [place] 00 IVP, Drug form: SOLN, ONCE, Priority: STAT, Start date: 09/01/11 3:30:00, Stop date: 09/01/11 3:30:00 Insulin 2011-0 No Bee L 8 unit, Me moria regular 3-13 [place] 0.08 mL, l 08:30: Route: Vin 00 IVP, Drug form: SOLN, ONCE, Priority: STAT, Start date: 09/01/11 3:30:00, Stop date: 09/01/11 3:30:00 Insulin 2011-0 No Bee L 8 unit, Me moria regular 3-13 [place] 0.08 mL, l 08:30: Route: Vin 00 [...] - [place] Rate: l 0.9% 07:29: 1,000 [place] (Bolus) IV 00 ml/hr, 1,000 mL Infuse over: 1 hr, Route: IV, Dosing Weight 68.182 kg, Total Volume: 1,000, [place] Dose, Priority: STAT, Start date: 09/01/11 2:29:00, Duration: 1 doses or times, Stop date: 09/01/11 3:28:00 Sodium 2011-0 No Bee L 1,000 mL, M emoria Chloride 3- [place] Rate: l 0.9% 07:29: 1,000 Vin (Bolus) [...] L 1,000 mL, M emoria Chloride 08-31 [place] Rate: l 0.9% 07:29: 1,000 [place] (Bolus) IV 00 ml/hr, 1,000 mL Infuse over: 1 hr, Route: IV, Dosing Weight 68.182 kg, Total Volume: 1,000, [place] Dose, Priority: STAT, Start date: 09/01/11 2:29:00, Duration: 1 doses or times, Stop date: 09/01/11 3:28:00 Sodium 2011-0 No Bee L 1,000 mL, M emoria Chloride 08-31 [place] Rate: l 0.9% 07:29: 1,000 [place] (Bolus) IV 00 ml/hr, 1,000 mL Infuse over: 1 hr, Route: IV, Dosing Weight 68.182 kg, Total Volume: 1,000, [place] Dose, Priority: STAT, Start date: 09/01/11 2:29:00, Duration: 1 doses or times, Stop date: 09/01/11 3:28:00 potassium 2011-0 No Brooks Noam 40 mEq, 2 Memoria chloride 3-04 [place]kmal tab, l 15:00: Route: PO, [place] 00 Drug form: ERTAB, BID, Start date: 08/23/11 9:00:00, Duration: 2 doses or times, Stop date: 08/23/11 17:00:00 potassium 2012-0 No Brooks Noam 40 mEq, 2 Memoria chloride 3-04 Akm[place] tab, l 15:00: Route: PO, [place] 00 Drug form: ERTAB, BID, Start date: [...] 3-04 Akmal tab, l 15:00: Route: PO, [place] 00 Drug form: ERTAB, BID, Start date: [...] Akmal SUB-Q, l units/mL 14:42: BID, 3 [place] subcutaneou 04 vial, 3, s injection 3, Substituti on Allowed, SUSP Novolin N Yes Brooks Noam 18 Units, Memoria 100 3-04 [place] SUB-Q, l units/mL 14:42: BID, 3 Vin subcutaneou 04 vial, 3, s injection 3, Substituti on Allowed, SUSP Novolin N Yes Brooks Noam 18 Units, Memoria 100 3-04 [place] SUB-Q, l units/mL 14:42: BID, 3 [place] subcutaneou 04 vial, 3, s injection 3, Substituti on Allowed, SUSP Novolin N Yes Brooks Noam 18 Units, Memoria 100 3-04 [place] SUB-Q, l units/mL 14:42: BID, 3 [place] subcutaneou 04 vial, 3, s injection 3, Substituti on Allowed, SUSP Novolin N Yes Brooks Noam 18 Units, Memoria 100 3-04 [place] SUB-Q, l units/mL 14:42: BID, 3 Vin subcutaneou 04 vial, 3, s injection 3, Substituti on Allowed, SUSP insulin Yes Brooks Noam 5 Units, Memoria regular 3-04 Akmal SUB-Q, l human 14:40: TID, 30 [place] recombinant 10 vial, 3, 100 3, units/mL [...] Akmal SUB-Q, l human 14:40: TID, 30 [place] recombinant 10 vial, 3, 100 3, units/mL [...] 3-04 Akmal 100 mL, l 14:00: Route: [place] IVPB, Drug form: INJ, Q2H, Start date: 08/23/11 8:00:00, Duration: 2 doses or times, Stop date: 08/23/11 10:00:00 potassium 2011-0 No Brooks Noam 20 mEq, Memoria chloride 3-04 Akm[place] 100 mL, l 14:00: Route: [place] IVPB, Drug form: INJ, Q2H, Start date: [...] 3-04 Akmal 100 mL, l 14:00: Route: [place] 00 IVPB, Drug form: INJ, Q2H, Start [...] chloride 3-04 [place] Route: l 13:28: IVPB, [place] 00 ONCE, Priority: STAT, Start date: 08/23/11 7:28:00, Stop date: 08/23/11 7:28:00 calcium 2011-0 No Brooks Noam 1 gm, Mem oria chloride 3-04 [place] Route: l 13:28: IVPB, [place] 00 ONCE, Priority: STAT, Start date: 08/23/11 7:28:00, Stop date: 08/23/11 7:28:00 calcium 2011-0 No Brooks Noam 1 gm, Mem oria chloride 3-04 [place] Route: l 13:28: IVPB, Vin 00 ONCE, Priority: STAT, Start date: 08/23/11 7:28:00, Stop date: 08/23/11 7:28:00 calcium 2011-0 No Brooks Onam 1 gm, Mem oria chloride 3-04 [place] Route: l 13:28: IVPB, [place] 00 ONCE, Priority: STAT, Start date: 08/23/11 7:28:00, Stop date: 08/23/11 7:28:00 potassium 2011-0 No Brooks Noam 40 mEq, Memoria chloride 3-04 [place] Route: IV, l 12:29: ONCE, [place] 00 Start date: 08/23/11 6:29:00, Stop date: 08/23/11 6:29:00 potassium 2011-0 No Brooks Noam 40 mEq, Memoria chloride 3-04 [place] Route: IV, l 12:29: ONCE, [place] 00 Start date: 08/23/11 6:29:00, Stop date: 08/23/11 6:29:00 potassium 2011-0 No Brooks Noam 40 mEq, Memoria chloride 3-04 [place] Route: IV, l 12:29: ONCE, [place] Start date: 08/23/11 6:29:00, Stop date: 08/23/11 [...] Stop date: 08/23/11 6:27:00 magnesium 2011-0 No Brokos Noam 2 gm, 50 Memoria sulfate 3-04 [...] Akmal mL, Route: l 12:26: IVPB, Drug [place] 00 form: INJ, ONCE, Total dose = 2 gm, Start date: 08/23/11 6:26:00, Duration: 1 doses or times, Stop date: 08/23/11 6:26:00 magnesium 2011-0 No Brooks Noam 2 gm, 50 Memoria sulfate 3-04 [place] mL, Route: l 12:26: IVPB, Drug [place] 00 form: INJ, ONCE, Total dose = [...] [place] mL, Route: l 13:26: IVPB, Drug [place] 00 form: INJ, ONCE, Total dose = 2 gm, Start date: 08/22/11 7:26:00, Duration: 1 doses or times, Stop date: 08/22/11 7:26:00 magnesium 2011-0 No Brooks Noam 2 gm, 50 Memoria sulfate 3-03 [place] mL, Route: l 13:26: IVPB, Drug [place] 00 form: INJ, ONCE, Total dose = [...] No Yury 10 mg, 1 Memoria 3-02 Gaot tab, l 20:06: River[place] Route: PO, H [...] 3-02 [place]km[place] tab, l 15:00: Route: PO, [place] 00 Drug form: TAB, Daily, Start date: 08/21/11 9:00:00, Stop date: 09/19/11 9:00:00 lisinopril 2012-0 No Brooks Noam 40 mg, 2 Memoria 3-02 [place] tab, l 15:00: Route: PO, [place] 00 Drug form: TAB, Daily, Start date: 08/21/11 9:00:00, Stop date: 09/19/11 9:00:00 lisinopril 2012-0 No Brooks Noam 40 mg, 2 Memoria 3-02 [place] tab, l 15:00: Route: PO, [place] 00 Drug form: TAB, Daily, Start date: 08/21/11 9:00:00, Stop date: 09/19/11 9:00:00 lisinopril 2012-0 No Brooks Noam 40 mg, 2 Memoria 3-02 [place] tab, l 15:00: Route: PO, [place] 00 Drug form: TAB, Daily, Start date: 08/21/11 9:00:00, Stop date: 09/19/11 9:00:00 lisinopril 2011-0 No Brooks Noam 40 mg, 2 Memoria 3-02 [place] tab, l 15:00: Route: PO, [place] 00 Drug form: TAB, Daily, Start date: [...] No Yury 6.25 mg, M emoria 3-01 Gtao 0.25 mL, l 21:41: [place] Route: Nidia [...] mL, Route: l 17:15: Ahmed IVP, Drug [place] 00 form: INJ, Q8H, PRN Nausea, Start date: 08/20/11 11:15:00, Duration: 30 day, Stop date: 09/19/11 11:14:00 Zofran 2011-0 No [place] 4 mg, 2 Memori a 3-01 Rodriguez mL, Route: l 17:15: Ahmed IVP, Drug [place] 00 form: INJ, Q8H, PRN Nausea, Start date: 08/20/11 11:15:00, Duration: 30 day, Stop date: 09/19/11 11:14:00 insulin 2011-0 Kayla Cotton 10 unit, Mem oria isophane-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 [employer]ER[employer]Y 3- [place] Route: l H 16:00: [place] SUB-Q, Nidia nn 00 ONCE, Start date: 08/20/11 10:00:00, Stop date: 08/20/11 10:00:00 insulin 2012-0 No Yury 10 unit, Mem oria isophane-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 [employer]ER[employer]Y 3- [place] Route: l H 16:00: [place] SUB-Q, Nidia nn 00 ONCE, Start date: 08/20/11 10:00:00, Stop date: 08/20/11 10:00:00 insulin 2012-0 No Yury 10 unit, Mem oria isophane-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 [employer]ER[employer]Y 08-19 [place] Route: l H 16:00: [place] SUB-Q, Nidia nn 00 ONCE, Start date: 08/20/11 10:00:00, Stop date: 08/20/11 10:00:00 insulin 2012-0 No Yury 10 unit, Mem oria isophane-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 [employer]ER[employer]Y - [place] Route: l H 16:00: [place] SUB-Q, Nidia nn ONCE, Start date: 08/20/11 10:00:00, Stop date: 08/20/11 10:00:00 insulin 2012-0 No Yury 10 unit, Mem oria isophane-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 [employer]ER[employer]Y 08-19 [place] Route: l H 16:00: [place] SUB-Q, Nidia nn ONCE, Start date: 08/20/11 10:00:00, Stop date: 08/20/11 10:00:00 trazodone 2012-0 Yes 200 mg, 2 Mem oria 100 mg oral 3-01 tab, PO, l tablet 15:37: Bedtime, Vin 27 90 tab, Substituti on Allowed, TAB trazodone 2012-0 Yes 200 mg, 2 Mem oria 100 mg oral 3-01 tab, PO, l tablet 15:37: Bedtime, [place] 27 90 tab, Substituti on Allowed, TAB [...] tab, PO, l tablet 15:35: BID, 60 [place] 25 tab, Substituti on Allowed, TAB benztropine 2012-0 Yes 1 mg, 1 Mem oria 1 mg oral 3- tab, PO, l tablet 15:35: BID, 60 [place] 25 tab, Substituti on Allowed, TAB benztropine 2012-0 Yes 1 mg, 1 Mem oria 1 mg oral 3- tab, PO, l tablet 15:35: BID, 60 [place] 25 tab, Substituti on Allowed, TAB benztropine [...] 2011-0 No Yury 10 unit, Mem oria isophane-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 [employer]ER[employer]Y 3-01 [place] Route: l H 15:00: Rivero [...] 2011-0 No Yury 10 unit, Mem oria isophane-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 THER[employer]Y - [place] Route: l H 15:00: Rivero [...] 2011-0 No Yury 10 unit, Mem oria isophane-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 THER[employer]Y 3-01 [place] Route: l H 15:00: Rivero [...] 2011-0 No Yury 10 unit, Mem oria isophane-[employer]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 THERAPY 3- [place] Route: l H 15:00: Rivero [...] 2012-0 No Yury 10 unit, Mem oria isophane-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 [employer]ER[employer]Y 3-01 [place] Route: l H 15:00: [place] SUB-Q, Nidia nn 00 Q12H, Start date: 08/20/11 9:00:00, Duration: 30 day, Stop date: 09/18/11 21:00:00 Geodon 2011-0 No Yury 60 mg, 3 Mendoza janice 3-01 [place] cap, l 15:00: [place] Route: PO, H Drug form: CAP, BID, Start date: 08/20/11 [...] regular - [place] SUB-Q, l 09:28: BID, [place] 23 Substituti on Allowed Insulin 2011-0 No Brooks Noam 10 unit, Memoria regular 08-19 [place] SUB-Q, l 09:28: BID, [place] 23 Substituti on Allowed Insulin 2011-0 No Brooks Noam 10 unit, Memoria regular - [place] SUB-Q, l 09:28: BID, Vin 23 Substituti on Allowed Insulin 2011-0 No Brooks Noam 10 unit, Memoria regular - [place] SUB-Q, l 09:28: BID, [place] 23 Substituti on Allowed Insulin 2011-0 No Brooks Noam 10 unit, Memoria regular - [place] SUB-Q, l 09:28: BID, Vin 23 Substituti on Allowed insulin 2011-0 No 10 unit, Memori a isophane-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 THER[employer]Y - SUB-Q, l H 09:26: BID, Vin 18 Substituti on Allowed insulin 2011-0 No 10 unit, Memori a isophane-[employer]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 THERAPY - SUB-Q, l H 09:26: BID, [place] 18 Substituti on Allowed insulin 2011-0 No 10 unit, Memori a isophane-[employer]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 THERAPY - SUB-Q, l H 09:26: BID, Vin 18 Substituti on Allowed insulin 2011- No 10 unit, Memori a isophane-[employer]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 THERAPY 3-01 SUB-Q, l H 09:26: BID, Vin 18 Substituti on Allowed insulin 2011- No 10 unit, Memori a isophane-[employer]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 THER[employer]Y 3-01 SUB-Q, l H 09:26: BID, Vin 18 Substituti on Allowed NS 1,000 mL No Brooks Noam 1,000 mL, Memoria 08-19 [place] Rate: 150 l 09:06: ml/hr, [place] 00 Infuse over: 6.7 hr, Route: IV, [...] 08-19 [place] Rate: 150 l 09:06: ml/hr, [place] 00 Infuse over: 6.7 hr, Route: IV, [...] 3-01 [place] Rate: 150 l 09:06: ml/hr, [place] 00 Infuse over: 6.7 hr, Route: IV, [...] 30 day, Stop date: 09/19/11 3:05:00 enoxaparin 2012-0 No Yury 40 mg, 0.4 [...] 2012-0 No Yury 18 unit, Mem oria isophane-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 [employer]ER[employer]Y 3-01 [place] 0.18 mL, l H 08:58: [place] Route: Nidia nn 00 SUB-Q, Drug form: INJ, Q12H, Start date: 08/20/11 2:58:00, Stop date: 09/18/11 21:00:00 insulin 2011-0 No Yury 18 unit, Mem oria isophane-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 [employer]ER[employer]Y 3-01 [place] 0.18 mL, l H 08:58: [place] Route: Nidia nn SUB-Q, Drug form: INJ, Q12H, Start date: 08/20/11 2:58:00, Stop date: 09/18/11 21:00:00 insulin 2011-0 No Yury 18 unit, Mem oria isophane-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 [employer]ER[employer]Y 3-01 [place] 0.18 mL, l H 08:58: [place] Route: Nidia nn SUB-Q, Drug form: INJ, Q12H, Start date: 08/20/11 2:58:00, Stop date: 09/18/11 21:00:00 insulin 2011-0 No Yury 18 unit, Mem oria isophane-[employer]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 THER[employer]Y 3-01 [place] 0.18 mL, l H 08:58: [place] Route: Nidia nn SUB-Q, Drug form: INJ, Q12H, Start date: 08/20/11 2:58:00, Stop date: 09/18/11 21:00:00 insulin 2011-0 No Yury 18 unit, Mem oria isophane-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 3-01 Gato 0.18 mL, l H 08:58: [...] No Hughes-Jason 4 mg, M emoria 08-19 [place] Route: l 07:42: [place] IVP, Drug Herm naeem 00 Pu form: INJ, ONCE, Priority: STAT, Start date: 08/20/11 1:42:00, Stop date: 08/20/11 1:42:00 ondansetron 2011-0 No Hughes-Jason 4 mg, M emoria 08-19 [place] Route: l 07:42: [place] IVP, Drug Herm naeem 00 Pu form: INJ, ONCE, Priority: STAT, Start date: 08/20/11 1:42:00, Stop date: 08/20/11 1:42:00 ondansetron 2011-0 No Hughes-Jason 4 mg, M emoria 08-19 [place] Route: l 07:42: [place] IVP, Drug Herm naeem 00 Pu form: INJ, ONCE, Priority: STAT, Start date: 08/20/11 1:42:00, Stop date: 08/20/11 1:42:00 ondansetron 2011-0 No Hughes-Jason 4 mg, emoria 08-19 [place] Route: l 07:42: [place] IVP, Drug Herm naeem 00 Pu form: INJ, ONCE, Priority: STAT, Start date: 08/20/11 1:42:00, Stop date: 08/20/11 1:42:00 ondansetron 2011-0 No Hughes-Jason 4 mg, emoria 08-19 [place] Route: l 07:42: [place] IVP, Drug Herm naeem 00 Pu form: INJ, ONCE, Priority: STAT, Start date: 08/20/11 1:42:00, Stop date: 08/20/11 1:42:00 GI cocktail 2011-0 No Hughes-Jason 30 ml, Memoria 08-19 [place] Route: PO, l 05:12: Drug Form: Her braden 00 Pu SUSP, ONCE, STAT, Start date: 08/19/11 23:12:00, Stop date: 08/19/11 23:12:00 GI cocktail 2011-0 No Hughes-Jason 30 ml, Memoria 08-19 [place] Route: PO, l 05:12: Drug Form: braden 00 Pu SUSP, ONCE, STAT, Start date: 08/19/11 23:12:00, Stop date: 08/19/11 23:12:00 GI cocktail 2011-0 No Hughes-Jason 30 ml, Memoria 08-19 [place] Route: PO, l 05:12: [place] Drug Form: Her braden 00 Pu SUSP, ONCE, STAT, Start date: 08/19/11 23:12:00, Stop date: 08/19/11 23:12:00 GI cocktail 2011-0 No Hughes-Jason 30 ml, Memoria 08-19 [place] Route: PO, l 05:12: [place] Drug Form: Her braden 00 Pu SUSP, ONCE, STAT, Start date: 08/19/11 23:12:00, Stop date: 08/19/11 23:12:00 GI cocktail 2011-0 No Hughes-Jason 30 ml, Memoria 08-19 [place] Route: PO, l 05:12: [place] Drug Form: Her braden 00 Pu SUSP, ONCE, STAT, Start date: 08/19/11 23:12:00, Stop date: 08/19/11 23:12:00 ondansetron 2011-0 No Hughes-Jason 4 mg, M emoria 08-19 [place] Route: PO, l 05:10: [place] Drug form: Her braden 00 Pu TABDIS, ONCE, Priority: STAT, Start date: 08/19/11 23:10:00, Stop date: 08/19/11 23:10:00 Lactated 0 No Hughes-Jason 1,000 mL, Memoria Ringers 08-19 [place] Rate: l (Bolus) IV 05:10: Dawson 1,000 He rmann 1000 mL 00 Pu ml/hr, Infuse over: 1 hr, Route: IV, Total Volume: 1,000, Bolus Dose, Priority: STAT, Start date: 08/19/11 23:10:00, Duration: 1 doses or times, Stop date: 08/20/11 0:09:00 ondansetron 2011-0 No Hughes-Jason 4 mg, M emoria 08-19 [place] Route: PO, l 05:10: [place] Drug form: Her braden 00 Pu TABDIS, ONCE, Priority: STAT, Start date: 08/19/11 23:10:00, Stop date: 08/19/11 23:10:00 Lactated 2012-0 No Hughes-Jason 1,000 mL, Memoria Ringers 3- [place] Rate: l (Bolus) IV 05:10: Dawson 1,000 He rmann 1000 mL 00 Pu ml/hr, Infuse over: 1 hr, Route: IV, Total Volume: 1,000, Bolus Dose, Priority: STAT, Start date: 08/19/11 23:10:00, Duration: 1 doses or times, Stop date: 08/20/11 0:09:00 ondansetron 2012-0 No Hughes-Jason 4 mg, M emoria 3- [place] Route: PO, l 05:10: Dawson Drug form: Her braden 00 Pu TABDIS, ONCE, Priority: STAT, Start date: 08/19/11 23:10:00, Stop date: 08/19/11 23:10:00 Lactated 2011-0 No Hughes-Jason 1,000 mL, Memoria Ringers 3- [place] Rate: l (Bolus) IV 05:10: Dawson 1,000 He rmann 1000 mL 00 Pu ml/hr, Infuse over: 1 hr, Route: IV, Total Volume: 1,000, Bolus Dose, Priority: STAT, Start date: 08/19/11 23:10:00, Duration: 1 doses or times, Stop date: 08/20/11 0:09:00 ondansetron 2011-0 No Hughes-Jason 4 mg, emoria 08-19 [place] Route: PO, l 05:10: [place] Drug form: Her braden 00 Pu TABDIS, ONCE, Priority: STAT, Start date: 08/19/11 23:10:00, Stop date: 08/19/11 23:10:00 Lactated 2011-0 No Hughes-Jason 1,000 mL, Memoria Ringers 3- [place] Rate: l (Bolus) IV 05:10: Dawson 1,000 He rmann 1000 mL 00 Pu ml/hr, Infuse over: 1 hr, Route: IV, Total Volume: 1,000, Bolus Dose, Priority: STAT, Start date: 08/19/11 23:10:00, Duration: 1 doses or times, Stop date: 08/20/11 0:09:00 ondansetron 2012-0 No Hughes-Jason 4 mg, M emoria 08-19 [place] Route: PO, l 05:10: Dawson Drug form: Her braden 00 Pu TABDIS, ONCE, Priority: STAT, Start date: 08/19/11 23:10:00, Stop date: 08/19/11 23:10:00 Lactated 2011-0 No Hughes-Jason 1,000 mL, Memoria Ringers 08-19 [place] Rate: l (Bolus) IV 05:10: Dawson 1,000 He rmann 1000 mL 00 Pu ml/hr, Infuse over: 1 hr, Route: IV, Total Volume: 1,000, Bolus Dose, Priority: STAT, Start date: 08/19/11 23:10:00, Duration: 1 doses or times, Stop date: 08/20/11 0:09:00 Insulin No Hughes-Jason 7 unit, Mem oria regular 3- [place] 0.07 mL, l 04:15: Dawson Route: [place] Pu SUB-Q, Drug form: SOLN, ONCE, Priority: STAT, Start date: 08/19/11 22:15:00, Stop date: 08/19/11 22:15:00 Insulin 0 No Hughes-Jason 7 unit, Mem oria regular 3- [place] 0.07 mL, l 04:15: Dawson Route: Vin 00 Pu SUB-Q, Drug form: SOLN, ONCE, Priority: STAT, Start date: 08/19/11 22:15:00, Stop date: 08/19/11 22:15:00 Insulin 2011-0 No Hughes-Jason 7 unit, Mem oria regular 3- [place] 0.07 mL, l 04:15: Dawson Route: [place] 00 Pu SUB-Q, Drug form: SOLN, ONCE, Priority: STAT, Start date: 08/19/11 22:15:00, Stop date: 08/19/11 22:15:00 Insulin 2011-0 No Hughes-Jason 7 unit, Mem oria regular 3-01 [place] 0.07 mL, l 04:15: Dawson Route: [place] 00 Pu SUB-Q, Drug form: SOLN, ONCE, Priority: STAT, Start date: 08/19/11 22:15:00, Stop date: 08/19/11 22:15:00 Insulin 2011-0 No Hughes-Jason 7 unit, Mem oria regular 301 [place] 0.07 mL, l 04:15: Dawson Route: [place] 00 Pu SUB-Q, Drug form: SOLN, ONCE, Priority: STAT, Start date: 08/19/11 22:15:00, Stop date: 08/19/11 22:15:00 Geodon 60 2011- No Yury 60 mg, 1 M emoria mg oral 2-29 Gato cap, PO, l capsule 23:24: Rivero BID, 180 [place] 43 cap, Substituti on Allowed, CAP Geodon 60 2011- No Yury 60 mg, 1 M emoria mg oral 2-29 Gato cap, PO, l capsule 23:24: Rivero BID, 180 [place] 43 cap, Substituti on Allowed, CAP Geodon 60 2011- No Yury 60 mg, 1 M emoria mg oral 2-29 Gato cap, PO, l capsule 23:24: Rivero BID, 180 Vin 43 cap, Substituti on Allowed, CAP Geodon 60 2011- No Yury 60 mg, 1 M emoria mg oral 2-29 Gato cap, PO, l capsule 23:24: Rivero BID, 180 [place] 43 cap, Substituti on Allowed, CAP Geodon 60 2011-0 No Yury 60 mg, 1 M emoria mg oral 2-29 Gato cap, PO, l capsule 23:24: Rivero BID, 180 Vin 43 cap, Substituti on Allowed, CAP trazodone 2011- No 300 mg, 1 Mem oria 300 mg oral 2-29 tab, PO, l tablet 23:23: Bedtime, [place] 58 15 tab, Substituti on Allowed, TAB trazodone 2011- No 300 mg, 1 Mem oria 300 mg oral 2-29 tab, PO, l tablet 23:23: Bedtime, [place] 58 15 tab, Substituti on Allowed, TAB trazodone 2011- No 300 mg, 1 Mem oria 300 mg oral 2-29 tab, PO, l tablet 23:23: Bedtime, [place] 58 15 tab, Substituti on Allowed, TAB trazodone 2011-0 No 300 mg, 1 Mem oria 300 mg oral 2-29 tab, PO, l tablet 23:23: Bedtime, [place] 58 15 tab, Substituti on Allowed, TAB [...] PO, l capsule, 23:22: Rivero Daily, 30 [place] extended 24 cap, release Substituti on Allowed Effexor XR 2011-0 Yes Yury 75 mg, 1 Memoria 75 mg oral 2-29 [place]ato cap, PO, l capsule, 23:22: Rivero Daily, 30 [place] extended 24 cap, release Substituti on Allowed Effexor XR 2011-0 Yes Yury 75 mg, 1 Memoria 75 mg oral 2-29 [place]ato cap, PO, l capsule, 23:22: Rivero Daily, 30 Vin extended 24 cap, release Substituti on Allowed Lactated 2011-0 No Yury 1,000 mL, M emoria Ringers IV - Gato Rate: 250 l 1,000 mL 23:03: Rivero ml/hr, H erm 00 Infuse over: 4 hr, Route: IV, [...] 17:02:00 Lactated 2012-0 No Yury 1,000 mL, emoria Ringers IV 2 Gato Rate: 250 l 1,000 mL 23:03: [...] cocktail No William 40 mL, Me moria 2- Wong Route: PO, l 22:04: Pooja Drug Form: Nidia nn 00 SUSP, ONCE, STAT, Start date: 08/19/11 16:04:00, Stop date: 08/19/11 16:04:00 Protonix 2011- No William 40 mg, Memor ia 2- Wong Route: l 22:04: Pooja IVP, Drug Jake n 00 form: INJ, ONCE, Start date: 08/19/11 16:04:00, Stop date: 08/19/11 16:04:00 GI cocktail No William 40 mL, Me moria 2-29 [...] Wong Route: l 21:57: Pooja IVP, Drug Ajke n 00 form: INJ, ONCE, Priority: STAT, Start date: 08/19/11 15:57:00, Stop date: 08/19/11 15:57:00 morphine 2011-0 No William 4 mg, Memori a Sulfate 2-29 Wong Route: l 21:57: Pooja IVP, ONCE, Nidia nn 00 Priority: STAT, Start date: 08/19/11 15:57:00, Stop date: 08/19/11 15:57:00 Reglan 2011-0 No William 10 mg, Memoria 2-29 Wong Route: IV, l 21:57: Pooja ONCE, [place] 00 Start date: 08/19/11 15:57:00, Stop date: [...] William 1,000 mL, Me moria Ringers 2- Owng Rate: l (Bolus) IV 21:12: Pooja 1,000 [...] 16:11:00 Lactated 2011-0 No William 1,000 mL, Ak moria Ringers 2- Wong Rate: l (Bolus) [...] blood 2020-06-27 16:33:00 171 mm[Hg] Univer sity [facility] Diastolic blood 2020-06-27 16:33:00 98 mm[Hg] [facility] 2020-06-27 16:33:00 71 /min [facility] Respiratory rate 2020-06-27 16:29:00 19 /min [facility] Body height 2020-06-27 16:29:00 154.9 cm [facility] Body weight 2020-06-27 16:29:00 77.293 kg [facility] BMI 2020-06-27 16:29:00 32.20 kg/m2 [facility] of [facility] Oxygen saturation in 2020-06-27 16:29:00 99 /min [facility] of Arterial blood by [facility] Pulse oximetry Branch Systolic blood 2020-06-27 16:33:00 171 mm[Hg] Univer sity of pressure [facility] Diastolic blood 2020-06-27 16:33:00 98 mm[Hg] Unive rsity of pressure [facility] Heart rate 2020-06-27 16:33:00 71 /min [facility]i ty of [facility] Respiratory rate 2020-06-27 16:29:00 19 /min [facility] Body height 2020-06-27 16:29:00 154.9 cm [facility] Body weight 2020-06-27 16:29:00 77.293 kg [facility] BMI 2020-06-27 16:29:00 32.20 kg/m2 Universi ty [facility] Oxygen saturation in 2020-06-27 16:29:00 99 /min [facility] Arterial blood by [facility] Pulse oximetry Branch Height/Length 2021-07-08 11:50:13 154.9 cm Measured Weight Dosing 2021-07-08 11:50:13 85.00 kg Height/Length 2021-07-08 11:47:31 154.9 cm Measured Weight Dosing 2021-07-08 11:47:31 85.00 kg Height/Length 2021-07-08 11:47:20 154.9 cm Measured Weight Dosing 2021-07-08 11:47:20 85.00 kg Systolic blood 2021-07-08 19:43:00 189 mm[Hg] [facility] pressure Diastolic blood 2021-07-08 19:43:00 104 mm[Hg] Metho dist [facility] pressure Heart rate 2021-07-08 18:56:00 74 /min Methodis [facility] Body temperature 2021-07-08 18:56:00 36.39 [facility] 2021-07-08 18:56:00 157.5 cm [facility] Body weight 2021-07-08 18:56:00 72.938 kg [facility] BMI 2021-07-08 18:56:00 29.41 kg/m2 [facility] Oxygen saturation in 2021-07-08 18:56:00 100 /min [facility] Arterial blood by Pulse oximetry Respiratory rate 2021-06-18 16:36:00 11 /min [facility] Systolic (mm Hg) 2021-01-29 20:03:00 Mendoza rial [place] Diastolic (mm Hg) 2021-01-29 20:03:00 Mem orial Vin Systolic (mm Hg) 2021-01-29 19:40:00 Mendoza rial [place] Diastolic (mm Hg) 2021-01-29 19:40:00 Mem orial Vin Systolic (mm Hg) 2021-01-29 18:05:00 Mendoza rial Vin Diastolic (mm Hg) 2021-01-29 18:05:00 Mem orial Vin Respitory Rate 2021-01-29 16:55:00 Memori al Vin Temperature Oral (F) 2021-01-29 16:45:00 97.3 F [facility] [place] Respitory Rate 2021-01-29 16:45:00 Memori al [place] Respitory Rate 2021-01-29 16:30:00 Memori al [place] Temperature Oral (F) 2021-01-29 13:10:00 97.6 F [facility] [place] Systolic (mm Hg) 2021-01-27 05:00:00 Mendoza rial Vin Diastolic (mm Hg) 2021-01-27 05:00:00 Mem orial [place] Systolic (mm Hg) 2021-01-27 04:00:00 Mendoza rial [place] Diastolic (mm Hg) 2021-01-27 04:00:00 Mem orial [place] Systolic (mm Hg) 2021-01-27 03:00:00 Mendoza rial [place] Diastolic (mm Hg) 2021-01-27 03:00:00 Mem orial [place] Respitory Rate 2021-01-26 19:00:00 Memori al Vin Respitory Rate 2021-01-26 18:00:00 Memori al Vin Respitory Rate 2021-01-26 17:00:00 Memori al Vin Temperature Oral (F) 2021-01-22 13:00:00 97.6 F [facility] [place] Height 2021-01-21 18:25:00 149.86 cm [facility] Vin Weight 2021-01-21 18:25:00 [facility] Vin BMI Calculated 2021-01-21 18:25:00 Memori al Vin Height 2021-01-21 17:09:00 157.48 cm [facility] Height 2021-01-21 13:09:00 157.48 cm [facility] Vin Weight 2021-01-21 13:09:00 [facility] [place] BMI Calculated 2021-01-21 13:09:00 Memori al Vin Heart Rate 2021-01-21 12:50:00 [facility] [place] Systolic (mm Hg) 2020-12-24 15:43:00 Mendoza rial [place] Diastolic (mm Hg) 2020-12-24 15:43:00 Mem orial [place] Heart Rate 2020-12-24 15:43:00 [facility] [place] Height 2020-12-24 15:43:00 154.94 cm [facility] [place] Weight 2020-12-24 15:43:00 [facility] Vin BMI Calculated 2020-12-24 15:43:00 Memori al [place] Systolic (mm Hg) 2016-07-30 14:00:00 Mendoza rial [place] Diastolic (mm Hg) 2016-07-30 14:00:00 Mem orial Vin Respitory Rate 2016-07-30 14:00:00 Memori al Vin Heart Rate 2016-07-30 14:00:00 [facility] [place] Temperature Oral (F) 2016-07-30 14:00:00 97.4 F [facility] [place] Systolic (mm Hg) 2016-07-30 10:45:00 Mendoza rial Vin Diastolic (mm Hg) 2016-07-30 10:45:00 Mem orial Vin Heart Rate 2016-07-30 10:45:00 [facility] [place] Temperature Oral (F) 2016-07-30 10:45:00 97.2 F [facility] [place] Respitory Rate 2016-07-30 10:45:00 Memori al [place] Heart Rate 2016-07-30 06:35:00 [facility] [place] Temperature Oral (F) 2016-07-30 06:35:00 97.0 F [facility] [place] Respitory Rate 2016-07-30 06:35:00 Memori al Vin Systolic (mm Hg) 2016-07-30 06:35:00 Mendoza rial Vin Diastolic (mm Hg) 2016-07-30 06:35:00 Mem orial [place] Weight 2016-07-24 02:13:00 [facility] [place] BMI Calculated 2016-07-24 02:13:00 Memori al Vin Height 2016-07-24 02:13:00 160.02 cm [facility] Vin Respitory Rate 2016-06-15 15:00:00 Memori al Vin Systolic (mm Hg) 2016-06-15 15:00:00 Mendoza rial [place] Diastolic (mm Hg) 2016-06-15 15:00:00 Mem orial [place] Respitory Rate 2016-06-15 14:00:00 Memori al Vin Systolic (mm Hg) 2016-06-15 14:00:00 Mendoza rial [place] Diastolic (mm Hg) 2016-06-15 14:00:00 Mem orial Vin Respitory Rate 2016-06-15 13:29:00 Memori al Vin Systolic (mm Hg) 2016-06-15 13:29:00 Mendoza rial Vin Diastolic (mm Hg) 2016-06-15 13:29:00 Mem orial [place] Temperature Oral (F) 2016-06-14 10:56:00 97.1 F [facility] Vin Temperature Oral (F) 2016-06-14 06:55:00 97.1 F [facility] Vin Temperature Oral (F) 2016-06-12 10:00:00 96.8 F [facility] Vin Weight 2016-06-11 04:25:00 [facility] Vin Height 2016-06-11 04:25:00 160.02 cm [facility] [place] BMI Calculated 2016-06-11 04:25:00 Memori al [place] Heart Rate 2016-06-11 02:04:00 [facility] Vin Heart Rate 2016-06-11 00:00:00 [facility] [place] Heart Rate 2016-06-10 20:30:00 [facility] [place] Weight 2016-06-10 16:04:00 [facility] Vin BMI Calculated 2016-06-10 16:04:00 Memori al [place] Height 2016-06-10 16:04:00 160.02 cm [facility] [place] Temperature Oral (F) 2014-06-26 15:12:00 98.0 F [facility] [place] Systolic (mm Hg) 2014-06-26 15:12:00 Mendoza rial Vin Heart Rate 2014-06-26 15:12:00 [facility] Vin Diastolic (mm Hg) 2014-06-26 15:12:00 Mem orial [place] Respitory Rate 2014-06-26 15:12:00 Memori al Vin Systolic (mm Hg) 2014-06-26 13:53:00 Mendoza rial [place] Diastolic (mm Hg) 2014-06-26 13:53:00 Mem orial Vin Respitory Rate 2014-06-26 13:53:00 Memori al Vin Temperature Oral (F) 2014-06-26 13:53:00 98.0 F [facility] Vin Temperature Oral (F) 2014-06-26 12:37:00 98.2 F [facility] [place] Respitory Rate 2014-06-26 12:37:00 Memori al Vin Systolic (mm Hg) 2014-06-26 12:37:00 Mendoza rial [place] Diastolic (mm Hg) 2014-06-26 12:37:00 Mem orial Vin Heart Rate 2014-06-26 09:21:00 [facility] [place] Heart Rate 2014-06-26 06:08:00 [facility] Vin Height 2014-06-26 05:35:00 154.94 cm [facility] Vin Weight 2014-06-26 05:35:00 [facility] [place] BMI Calculated 2014-06-26 05:35:00 Memori al [place] Respitory Rate 2013-04-15 06:10:00 Memori al Vin Diastolic (mm Hg) 2013-04-15 06:10:00 Mem orial [place] Heart Rate 2013-04-15 06:10:00 [facility] [place] Systolic (mm Hg) 2013-04-15 06:10:00 Mendoza rial Vin Temperature Oral (F) 2013-04-15 06:10:00 98.7 F [facility] Vin Respitory Rate 2013-04-15 05:37:00 Memori al [place] Diastolic (mm Hg) 2013-04-15 05:37:00 Mem orial [place] Systolic (mm Hg) 2013-04-15 05:37:00 Mendoza rial [place] Temperature Oral (F) 2013-04-15 05:37:00 98.2 F [facility] [place] Heart Rate 2013-04-15 05:37:00 [facility] Vin Height 2013-04-15 02:06:00 160.02 cm [facility] Vin Weight 2013-04-15 02:06:00 [facility] [place] Temperature Oral (F) 2013-04-15 02:06:00 98.6 F [facility] [place] Respitory Rate 2013-04-15 02:06:00 Memori al Vin Heart Rate 2013-04-15 02:06:00 [facility] [place] Diastolic (mm Hg) 2013-04-15 02:06:00 Mem orial [place] Systolic (mm Hg) 2013-04-15 02:06:00 Mendoza rial [place] Weight 2012-03-14 21:33:00 [facility] Vin Systolic (mm Hg) 2011-12-01 00:33:00 Mendoza rial [place] Respitory Rate 2011-12-01 00:33:00 Memori al [place] Heart Rate 2011-12-01 00:33:00 [facility] [place] Diastolic (mm Hg) 2011-12-01 00:33:00 Mem orial Vin Temperature Oral (F) 2011-12-01 00:33:00 99.6 F [facility] [place] Diastolic (mm Hg) 2011-11-30 21:00:00 Mem orial Vin Heart Rate 2011-11-30 21:00:00 [facility] [place] Respitory Rate 2011-11-30 21:00:00 Memori al Vin Systolic (mm Hg) 2011-11-30 21:00:00 Mendoza rial [place] Temperature Oral (F) 2011-11-30 21:00:00 99.8 F [facility] [place] Respitory Rate 2011-11-30 16:30:00 Memori al Vin Systolic (mm Hg) 2011-11-30 16:30:00 Mendoza rial [place] Diastolic (mm Hg) 2011-11-30 16:30:00 Mem orial [place] Heart Rate 2011-11-30 16:30:00 [facility] [place] Temperature Oral (F) 2011-11-30 16:30:00 99.8 F [facility] [place] Weight 2011-11-29 11:40:00 [facility] [place] Height 2011-11-29 11:40:00 157.48 cm [facility] [place] Weight 2011-11-28 17:16:00 [facility] Vin Weight 2011-09-18 13:30:00 [facility] [place] Height 2011-09-18 13:30:00 154.94 cm [facility] [place] Heart Rate 2011-09-09 13:31:00 [facility] [place] Systolic (mm Hg) 2011-09-09 13:02:00 Mendoza rial Vin Diastolic (mm Hg) 2011-09-09 13:02:00 Mem orial [place] Respitory Rate 2011-09-09 13:02:00 Memori al Vin Temperature Oral (F) 2011-09-09 13:02:00 97.5 F [facility] [place] Diastolic (mm Hg) 2011-09-09 08:00:00 Mem orial [place] Heart Rate 2011-09-09 08:00:00 [facility] [place] Temperature Oral (F) 2011-09-09 08:00:00 98.6 F [facility] Vin Respitory Rate 2011-09-09 08:00:00 Memori al [place] Systolic (mm Hg) 2011-09-09 08:00:00 Mendoza rial Vin Respitory Rate 2011-09-09 04:55:00 Memori al Vin Diastolic (mm Hg) 2011-09-09 04:55:00 Mem orial [place] Systolic (mm Hg) 2011-09-09 04:55:00 Mendoza rial Vin Heart Rate 2011-09-09 04:55:00 [facility] Vin Temperature Oral (F) 2011-09-09 00:55:00 98.7 F [facility] Vin Weight 2011-09-01 19:59:00 [facility] Height 2011-09-01 19:59:00 154.94 cm [facility] [place] Height 2011-09-01 07:01:00 154.94 cm [facility] [place] Weight 2011-09-01 07:01:00 [facility] [place] Respitory Rate 2011-08-23 18:00:00 Memori al [place] Heart Rate 2011-08-23 18:00:00 [facility] Vin Systolic (mm Hg) 2011-08-23 18:00:00 Mendoza rial [place] Diastolic (mm Hg) 2011-08-23 18:00:00 Mem orial Vin Temperature Oral (F) 2011-08-23 18:00:00 97.7 F [facility] Vin Heart Rate 2011-08-23 14:24:00 [facility] [place] Temperature Oral (F) 2011-08-23 14:24:00 98.2 F [facility] [place] Diastolic (mm Hg) 2011-08-23 14:24:00 Mem orial Vin Systolic (mm Hg) 2011-08-23 14:24:00 Mendoza rial Vin Respitory Rate 2011-08-23 14:24:00 Memori al [place] Systolic (mm Hg) 2011-08-23 11:15:00 Mendoza rial [place] Diastolic (mm Hg) 2011-08-23 11:15:00 Mem orial [place] Temperature Oral (F) 2011-08-23 11:00:00 98.3 F [facility] Vin Heart Rate 2011-08-23 11:00:00 [facility] Respitory Rate 2011-08-22 22:00:00 Memori al [place] Height 2011-08-20 09:12:00 154.94 cm [facility] Weight 2011-08-20 09:12:00 [facility] [place] Height 2011-08-19 20:28:00 154.94 cm [facility] [place] Weight 2011-08-19 20:28:00 [facility] Vin Procedures Procedure Date / Time Performing Clinician Source Performed POC GLUCOSE 2021-06-18 17:00:00 Aurelio Schumacher spital HEPATITIS B SURFACE 2021-06-18 [facility]EV[facility], RANDOM 2021-06-18 13:44:00 Char Viramontes [facility] HC COMPLETE BLD COUNT 2021-06-18 13:44:00 Aurelio Schumacher [facility] W/AUTO DIFF BASIC METABOLIC PANEL 2021-06-18 11:27:00 [facility] ESTIMATED GFR 2021-06-18 11:27:00 Aurelio Schumacher spital POC GLUCOSE 2021-06-18 08:07:00 Aurelio Schumacher spital HEMODIALYSIS 2021-06-18 06:16:53 Bill Cooper spital POC GLUCOSE 2021-06-18 01:26:00 Aurelio Schumacher spital POC GLUCOSE 2021-06-17 21:58:00 Endy Aurelio Whyte spital HEMODIALYSIS 2021-06-17 18:25:45 Bill Cooper spital POC GLUCOSE 2021-06-17 17:36:00 Endy Aurelio Whyte spital POC GLUCOSE 2021-06-17 13:51:00 Endy Aurelio Whyte spital BASIC METABOLIC PANEL 2021-06-17 11:16:00 [facility] HC COMPLETE BLD COUNT 2021-06-17 11:16:00 [facility] W/AUTO DIFF ESTIMATED GFR 2021-06-17 11:16:00 [facility] POC GLUCOSE 2021-06-17 02:50:00 [facility] CONSULT TO OSTOMY CARE 2021-06-17 00:31:48 [facility] NURSE HC COMPLETE BLD COUNT 2021-06-16 23:31:00 [facility] W/AUTO DIFF BASIC METABOLIC PANEL 2021-06-16 23:31:00 [facility] ESTIMATED GFR 2021-06-16 23:31:00 [facility] POC GLUCOSE 2021-06-16 23:19:00 [facility] OR FL < 1 HOUR 2021-06-16 22:49:00 Mando Diaz [facility] DiazHsviraj ANAEROBIC CULTURE 2021-06-16 22:36:00 [facility] 2021-06-16 22:36:00 [facility] 2021-06-16 22:36:00 [facility] STAIN 2021-06-16 22:36:00 Mando Diaz [facility] DiazHsi WI AN ELECTIVE 2021-06-16 21:30:00 Jocelyne Zepeda [facility] SUPRAGLOTTIC AIRWAY AORTOGRAPHY, POSSIBLE 2021-06-16 21:17:00 Mando Diaz [facility] ANGIOPLASTY Diaz-Hsi POC , URINE 2021-06-16 20:46:00 Veto [place] [facility] POTASSIUM LEVEL 2021-06-16 17:28:00 Isabell Dickerson POC GLUCOSE 2021-06-16 11:39:00 [facility] BASIC METABOLIC PANEL 2021-06-16 10:08:00 [facility] HC COMPLETE BLD COUNT 2021-06-16 10:08:00 [facility] W/AUTO DIFF PROTHROMBIN TIME WITH INR 2021-06-16 10:08:00 [facility] PARTIAL THROMBOPLASTIN 2021-06-16 10:08:00 [facility] TIME (PTT) TYPE AND SCREEN 2021-06-16 10:08:00 Char Viramontes H ospital ESTIMATED GFR 2021-06-16 10:08:00 [facility] POC GLUCOSE 2021-06-16 01:59:00 [facility] POC GLUCOSE 2021-06-15 22:58:00 [facility] COVID-19 QUALITATIVE 2021-06-15 19:29:00 [facility] RT-PCR POC GLUCOSE 2021-06-15 17:42:00 [facility] HEMODIALYSIS 2021-06-15 16:17:54 Delfino Akbar [facility] POC GLUCOSE 2021-06-15 15:41:00 [facility] POC GLUCOSE 2021-06-15 13:44:00 [facility] POC GLUCOSE 2021-06-15 13:00:00 [facility] ECG 12-LEAD 2021-06-15 12:48:21 Leni Barekr HC COMPLETE BLD COUNT 2021-06-15 11:42:00 [facility] W/AUTO DIFF BASIC METABOLIC PANEL 2021-06-15 11:42:00 [facility] ESTIMATED GFR 2021-06-15 11:42:00 [facility] POC GLUCOSE 2021-06-15 01:31:00 [facility] US DUPLEX ARTERIAL LOWER 2021-06-14 21:55:33 [facility] EXTREMITY RIGHT POC GLUCOSE 2021-06-14 21:51:00 [facility] POC GLUCOSE 2021-06-14 17:36:00 [facility] POC GLUCOSE 2021-06-14 13:30:00 [facility] POC GLUCOSE 2021-06-14 13:29:00 [facility] HC COMPLETE BLD COUNT 2021-06-14 10:13:00 [facility] W/AUTO DIFF BASIC METABOLIC PANEL 2021-06-14 10:13:00 [facility] ESTIMATED GFR 2021-06-14 10:13:00 [facility] POC GLUCOSE 2021-06-14 02:45:00 [facility] POC GLUCOSE 2021-06-13 21:47:00 [facility] POC GLUCOSE 2021-06-13 20:46:00 [facility] CBC WITH PLATELET AND 2021-06-13 16:10:00 [facility] DIFFERENTIAL COMPREHENSIVE METABOLIC 2021-06-13 16:10:00 [facility] PANEL ESTIMATED GFR 2021-06-13 16:10:00 [facility] HEMODIALYSIS 2021-06-13 15:26:35 [facility] POC GLUCOSE 2021-06-13 14:30:00 [facility] VANCOMYCIN LEVEL, RANDOM 2021-06-13 10:59:00 Juwan You [facility] POC GLUCOSE 2021-06-13 10:40:00 [facility] POC GLUCOSE 2021-06-13 02:28:00 [facility] POC GLUCOSE 2021-06-13 00:16:00 [facility] POC GLUCOSE 2021-06-12 23:31:00 [facility] POC GLUCOSE 2021-06-12 23:14:00 [facility] POC GLUCOSE 2021-06-12 18:19:00 [facility] POC GLUCOSE 2021-06-12 14:37:00 [facility] POC GLUCOSE 2021-06-12 14:01:00 [facility] POC GLUCOSE 2021-06-12 03:03:00 Holden Nagel spigabe Ram[facility] CT HEAD WO CONTRAST 2021-06-12 00:53:00 [facility] 2021-06-11 18:08:00 Holden Nagel spital Ramírez POC GLUCOSE 2021-06-11 13:39:00 Holden Nagel spital Ramírez HEMODIALYSIS 2021-06-11 12:38:38 Delfino Akbar [facility] POC GLUCOSE 2021-06-11 02:01:00 Holden Nagel spital Ramírez POC GLUCOSE 2021-06-10 22:15:00 Holden Nagel spital Ramírez POC GLUCOSE 2021-06-10 17:39:00 Holden Nagel spital Ramírez POC GLUCOSE 2021-06-10 16:05:00 Holden Nagel spital Ramírez TISSUE CULTURE 2021-06-10 15:08:00 Juwan You spital GRAM STAIN 2021-06-10 15:08:00 Juwan You spital ANAEROBIC CULTURE 2021-06-10 15:04:00 Pati [facility] FUNGUS CULTURE 2021-06-10 15:04:00 Juwan You spital AEROBIC CULTURE 2021-06-10 15:04:00 Pati, Juwan Whyte spital [employer] CULTURE 2021-06-10 15:04:00 Pati, Juwancaron Whyte spital GRAM STAIN 2021-06-10 15:04:00 Juwan You spital [employer] STAIN 2021-06-10 15:04:00 Pati, Juwan Whyte spital [place] AN ELECTIVE 2021-06-10 14:26:00 Sofi Roach spital SUPRAGLOTTIC AIRWAY Marquita INCISION AND DRAINAGE, 2021-06-10 14:26:00 Pati, [facility] LOWER EXTREMITY HC COMPLETE BLD COUNT 2021-06-10 10:20:00 , [facility] W/AUTO DIFF BASIC METABOLIC PANEL 2021-06-10 10:20:00 , [facility] PROTHROMBIN TIME WITH INR 2021-06-10 10:20:00 Pati, [facility] PARTIAL THROMBOPLASTIN 2021-06-10 10:20:00 , [facility] TIME (PTT) TYPE AND SCREEN 2021-06-10 10:20:00 Holden Nagel spital Ramírez ESTIMATED GFR 2021-06-10 10:20:00 Juwan You spital POC GLUCOSE 2021-06-10 03:11:00 Holden Nagel spital Ramírez POC GLUCOSE 2021-06-10 01:30:00 Holden Nagel spital Ramírez POC GLUCOSE 2021-06-09 22:22:00 Holden Nagel spital Ramírez POC GLUCOSE 2021-06-09 13:55:00 Holden Nagel spital Ramírez HEMODIALYSIS 2021-06-09 13:20:01 Delfino Akbar [facility] VANCOMYCIN LEVEL, RANDOM 2021-06-09 11:46:00 Char Viramontes [facility] POC GLUCOSE 2021-06-09 02:06:00 Holden Nagel spital Ramírez POC GLUCOSE 2021-06-08 22:23:00 Holden Nagel Ho spital Ramírez POC GLUCOSE 2021-06-08 17:53:00 Holden Nagel spital Ramírez HC COMPLETE BLD COUNT 2021-06-08 16:06:00 [facility] W/AUTO DIFF POC GLUCOSE 2021-06-08 13:56:00 Holden Nagel spital Ramírez URINE CULTURE 2021-06-08 03:56:00 Holden Nagel spital Ramírez URINALYSIS SCREEN AND 2021-06-08 03:32:00 [facility] MICROSCOPY, WITH REFLEX TO CULTURE POC GLUCOSE 2021-06-08 01:15:00 Holden Nagel spital Ramírez POC GLUCOSE 2021-06-07 22:07:00 Holden Nagel spital Ramírez POC GLUCOSE 2021-06-07 18:01:00 Holden Nagel spital Ramírez BASIC METABOLIC PANEL 2021-06-07 14:15:00 [facility] ESTIMATED GFR 2021-06-07 14:15:00 Holden Nagel spital Ramírez POC GLUCOSE 2021-06-07 13:56:00 Holden Nagel spital Ramírez POC GLUCOSE 2021-06-07 02:54:[address] LOWER EXTREMITY W 2021-06-07 01:22:59 [facility] CONTRAST RIGHT POC GLUCOSE 2021-06-06 23:50:00 Holden Nagel spital Ramírez POC GLUCOSE 2021-06-06 17:31:00 Holden Nagel spital Ramírez HEMODIALYSIS 2021-06-06 15:05:52 Delfino Akbar [facility] POC GLUCOSE 2021-06-06 14:03:00 Holden Nagel spital Ramírez HC COMPLETE BLD COUNT 2021-06-06 10:31:00 [facility] W/AUTO DIFF BASIC METABOLIC PANEL 2021-06-06 10:31:00 [facility] ESTIMATED GFR 2021-06-06 10:31:00 Holden Nagel spital Ramírez POC GLUCOSE 2021-06-06 10:14:00 Holden Nagel Ho spital Ramírez POC GLUCOSE 2021-06-06 06:26:00 Holden Nagel spital Ramírez POC GLUCOSE 2021-06-06 02:41:00 Holden Nagel spital Ramírez POC GLUCOSE 2021-06-05 19:51:00 Holden Nagel spital Ramírez BASIC METABOLIC PANEL 2021-06-05 18:06:00 [facility] HC COMPLETE BLD COUNT 2021-06-05 18:06:00 [facility] W/AUTO DIFF ESTIMATED GFR 2021-06-05 18:06:00 Holden Nagel spital Ramírez POC GLUCOSE 2021-06-05 17:48:00 Holden Nagel spital Ramírez ANAEROBIC CULTURE 2021-06-05 17:10:00 Pati [facility] ANAEROBIC CULTURE 2021-06-05 16:59:00 Pati [facility] FUNGUS CULTURE 2021-06-05 16:59:00 Pati Juwancaron HolmanReligion Ho spital AEROBIC CULTURE 2021-06-05 16:59:00 Pati [place] [employer] [facility] [employer] CULTURE 2021-06-05 16:59:00 Juwan You spital FUNGUS SMEAR 2021-06-05 16:59:00 Juwan You spital [employer] STAIN 2021-06-05 16:59:00 Pati [facility] spital [place] AN ELECTIVE 2021-06-05 16:52:08 Chandler Silverman [facility] SUPRAGLOTTIC AIRWAY TISSUE CULTURE 2021-06-05 16:50:00 Juwan You spital GRAM STAIN 2021-06-05 16:50:00 Juwan You spital DEBRIDEMENT, LOWER 2021-06-05 16:16:00 Pati, [facility] EXTREMITY POC GLUCOSE 2021-06-05 13:32:00 Holden Nagel Ho rajeshtal Ramírez TROPONIN T 2021-06-05 10:58:00 [facility] H ospital ABO AND RH CONFIRMATION BY 2021-06-05 10:54:00 [facility] PROTOCOL Vipin BASIC METABOLIC PANEL 2021-06-05 10:53:00 [facility] HC COMPLETE BLD COUNT 2021-06-05 10:53:00 [facility] W/AUTO DIFF ESTIMATED GFR 2021-06-05 10:53:00 Sivan Stewart [facility] PROTHROMBIN TIME WITH INR 2021-06-05 10:52:00 [facility] PARTIAL THROMBOPLASTIN 2021-06-05 10:52:00 [facility] TIME (PTT) HCG QUALITATIVE, SERUM 2021-06-05 10:52:00 Myron Fernandes [facility] SCREEN POC GLUCOSE 2021-06-05 09:40:00 Rachel Brasher Ho spital Vipin BLOOD CULTURE, AEROBIC & 2021-06-05 08:27:00 Rachel Brasher [facility] ANAEROBIC Vipin POC GLUCOSE 2021-06-05 07:42:00 Rachel Brasher Ho spital Vipin POC GLUCOSE 2021-06-05 06:57:00 Rachel Brasher Ho spital Vipin POC GLUCOSE 2021-06-05 06:10:00 Holden Nagel Ho spital Ramírez BLOOD CULTURE, AEROBIC & 2021-06-05 04:31:00 Rachel Brasher [facility] ANAEROBIC Vipin POC GLUCOSE 2021-06-05 04:04:00 Rachel Brasher Ho spital Vipin POC GLUCOSE 2021-06-05 03:51:00 Rachel Brasher Ho spital Vipin TYPE AND SCREEN 2021-06-05 03:40:00 Rachel Brasher Ho spital Vipin POC GLUCOSE 2021-06-05 03:05:00 Rachel Brasher Ho spital Vipin POC GLUCOSE 2021-06-05 02:23:00 Rachel Brasher Ho spital Vipin COVID-19 QUALITATIVE 2021-06-05 02:08:00 Sivan Stewart [facility] RT-PCR HC COMPLETE BLD COUNT 2021-06-05 01:24:00 Sivan Stewart [facility] W/AUTO DIFF PROTHROMBIN TIME WITH INR 2021-06-05 01:24:00 SamantaSivan [facility] PARTIAL THROMBOPLASTIN 2021-06-05 01:24:00 SamantaSivan [facility] TIME (PTT) COMPREHENSIVE METABOLIC 2021-06-05 01:24:00 [facility] PANEL CREATINE KINASE, TOTAL 2021-06-05 01:24:00 [facility] NATRIURETIC PEPTIDE 2021-06-05 01:24:00 Sivan Stewart [facility] TROPONIN T 2021-06-05 01:24:00 Char Viramontes [facility] ospigabe ESTIMATED GFR 2021-06-05 01:24:00 [facility] ECG ED PRELIMINARY 2021-06-05 00:31:28 [facility] 12-LEAD 2021-06-05 00:19:17 Rachel Brasher marilyn Vipin POC GLUCOSE 2021-05-25 18:04:00 Awe, [facility] POC GLUCOSE 2021-05-25 14:00:00 Awe, [facility] CBC HEMOGRAM 2021-05-25 10:12:00 Awe, [facility] BASIC METABOLIC PANEL 2021-05-25 10:12:00 [facility] ESTIMATED GFR 2021-05-25 10:12:00 [facility] 2021-05-25 02:49:00 [facility] POC GLUCOSE 2021-05-24 23:33:00 [facility] POC [facility]UCOSE 2021-05-24 17:56:00 [facility] 2021-05-24 13:59:00 Awe, [facility] CBC HEMOGRAM 2021-05-24 10:12:00 [facility] BASIC METABOLIC PANEL 2021-05-24 10:12:00 Awe, [facility] ESTIMATED GFR 2021-05-24 10:12:00 Awe, [facility] POC GLUCOSE 2021-05-24 09:59:00 Awe, [facility] POC GLUCOSE 2021-05-24 02:26:00 Awe, [facility] POC GLUCOSE 2021-05-24 00:03:00 Awe, [facility] TRANSFUSE RED BLOOD CELLS 2021-05-23 22:30:00 [facility] TRANSFUSE RED BLOOD CELLS 2021-05-23 21:30:00 [facility] POC GLUCOSE 2021-05-23 19:03:00 Awe, [facility] TYPE AND SCREEN 2021-05-23 14:38:00 [facility] HC COMPLETE BLD COUNT 2021-05-23 14:38:00 [facility] W/AUTO DIFF PREPARE RBC 2021-05-23 14:38:00 [facility] ospital PREPARE PLATELET PHERESIS 2021-05-23 14:38:00 [facility] POC GLUCOSE 2021-05-23 14:35:00 Awe, [facility] HEMODIALYSIS 2021-05-23 13:42:30 [facility] CBC HEMOGRAM 2021-05-23 12:31:00 Awe, Marilu Arvin [facility] BASIC METABOLIC PANEL 2021-05-23 12:31:00 Awe, Marilu Arvin [facility] ESTIMATED GFR 2021-05-23 12:31:00 Awe, Marilu Arvin [facility] POC GLUCOSE 2021-05-23 11:22:00 Awe, Marilu Arvin [facility] POC GLUCOSE 2021-05-23 03:30:00 Awe, Marilu Arvin [facility] POC GLUCOSE 2021-05-22 23:20:00 Awe, [facility] [place] [place] POC [facility]UCOSE 2021-05-22 17:20:00 [facility] POC GLUCOSE 2021-05-22 13:27:00 [facility] BASIC METABOLIC PANEL 2021-05-22 12:31:00 Nikki Haynes [facility] Rahel MAGNESIUM LEVEL 2021-05-22 12:31:00 Nikki Haynes ospital Rahel CBC HEMOGRAM 2021-05-22 12:31:00 Nikki Haynes ospital Rahel ESTIMATED GFR 2021-05-22 12:31:00 Nikki Haynes ospital Rahel POC GLUCOSE 2021-05-22 10:54:00 Awe, Marilu Arvin [facility] POC GLUCOSE 2021-05-22 07:28:00 Awe, [facility] [place] [place] POC GLUCOSE 2021-05-22 01:11:00 [facility] HEPATITIS B SURFACE 2021-05-21 21:08:00 [facility] ANTIBODY HEMODIALYSIS 2021-05-21 20:57:40 [facility] POC GLUCOSE 2021-05-21 17:57:00 [facility] POC GLUCOSE 2021-05-21 13:55:00 Marilu Koch [facility] POC GLUCOSE 2021-05-21 10:41:00 Tom BarberZCOVID-19 ANTI-SPIKE IGG 2021-05-21 07:43:00 Clyde Olmstead [facility] ANTIBODY TITER Esa BASIC METABOLIC PANEL 2021-05-21 07:43:00 [facility] Rahel MAGNESIUM LEVEL 2021-05-21 07:43:00 [facility] Rahel CBC HEMOGRAM 2021-05-21 07:43:00 [facility]ivernonClaudyNikki[facility] ospigabe Rahel ZZCOVID-19 SEROLOGY 2021-05-21 07:43:00 Clyde Olmstead [facility] PATIENT SURVEILLANCE Esa ESTIMATED GFR 2021-05-21 07:43:00 Andre Sofia LACTIC ACID LEVEL 2021-05-21 07:43:00 Leodan Stevenson [facility] POC GLUCOSE 2021-05-21 06:35:00 Tom Barber HC COMPLETE BLD COUNT 2021-05-21 02:49:00 [facility] W/AUTO DIFF BASIC METABOLIC PANEL 2021-05-21 02:49:00 [facility] LACTIC ACID LEVEL 2021-05-21 02:49:00 [facility] OSMOLALITY, SERUM 2021-05-21 02:49:00 [facility] BETA HYDROXYBUTYRATE 2021-05-21 02:49:00 [facility] PROCALCITONIN 2021-05-21 02:49:00 [facility] ESTIMATED GFR 2021-05-21 02:49:00 [facility] POC GLUCOSE 2021-05-21 02:34:00 Tom Barber spital HC COMPLETE BLD COUNT 2021-05-21 00:28:00 [facility] W/AUTO DIFF POC GLUCOSE 2021-05-20 23:57:00 Tom Barber Ho spital BASIC METABOLIC PANEL 2021-05-20 23:20:00 Andre Sofia [facility] LACTIC ACID LEVEL 2021-05-20 23:20:00 Andre Sofia [facility] [place] ESTIMATED GFR 2021-05-20 [...] RED BLOOD CELLS 2021-05-20 17:21:00 Andre Sofia [facility] [place] TRANSFUSE PLATELET 2021-05-20 15:52:00 [facility] PHERESIS BASIC METABOLIC PANEL 2021-05-20 15:25:00 Andre Sofia [facility] ESTIMATED GFR 2021-05-20 15:25:00 nAdre Sofia spital [place] POC GLUCOSE 2021-05-20 14:48:00 Tom Barber spital HEMODIALYSIS 2021-05-20 11:31:20 Delfino Akabr [facility] POC GLUCOSE 2021-05-20 10:44:00 Tom Barber spital HEPATITIS B SURFACE 2021-05-20 08:49:00 [facility] ANTIGEN HEPATITIS B SURFACE AB, 2021-05-20 08:49:00 [facility] QUANTITATIVE HC COMPLETE BLD COUNT 2021-05-20 08:25:00 [facility] W/AUTO DIFF BASIC METABOLIC PANEL 2021-05-20 08:25:00 [facility] MAGNESIUM LEVEL 2021-05-20 08:25:00 [facility] ospital PHOSPHORUS LEVEL 2021-05-20 08:25:00 [facility] PROTHROMBIN TIME WITH INR 2021-05-20 08:25:00 [facility] 2021-05-20 08:25:00 Juwan You spital HEMOGLOBIN A1C 2021-05-20 08:25:00 Nikki Haynes ospital Rahel POC GLUCOSE 2021-05-20 06:34:00 Tom Barber spital ARTERIAL BLOOD GAS 2021-05-20 04:36:00 Graham [facility] ECG 12-LEAD 2021-05-20 03:42:28 Graham [facility] Religion Ho spital PROTHROMBIN TIME WITH INR 2021-05-20 02:54:00 [facility] HC COMPLETE BLD COUNT 2021-05-20 02:54:00 Graham [facility] W/AUTO DIFF BASIC METABOLIC PANEL 2021-05-20 02:54:00 Graham [facility] LACTIC ACID LEVEL 2021-05-20 02:54:00 Graham [facility] VENOUS BLOOD GAS 2021-05-20 02:54:00 Graham Alcocer Raj Taylor ospital ESTIMATED GFR 2021-05-20 02:54:00 Graham [facility] Religion Ho spital POC GLUCOSE 2021-05-20 02:54:00 Tom Barber spital XR CHEST 1 VW PORTABLE 2021-05-20 02:51:13 Stevenson, [facility] [place] < 1 HOUR 2021-05-20 01:30:15 Juwan You spital TRANSFUSE RED BLOOD CELLS 2021-05-20 00:59:00 Juwan You [facility] [place] AN ELECTIVE 2021-05-20 00:53:01 Sukhjinder Medina spital SUPRAGLOTTIC AIRWAY [place] INCISION AND DRAINAGE, 2021-05-20 00:45:00 Pati [facility] HEMATOMA HC COMPLETE BLD COUNT 2021-05-19 22:13:00 [facility] W/AUTO DIFF BASIC METABOLIC PANEL 2021-05-19 22:13:00 [facility] PROTHROMBIN TIME WITH INR 2021-05-19 22:13:00 [facility] PARTIAL THROMBOPLASTIN 2021-05-19 22:13:00 [facility] TIME (PTT) MAGNESIUM LEVEL 2021-05-19 22:13:00 [facility] ospital ESTIMATED GFR 2021-05-19 22:13:00 Juwan You spital POC GLUCOSE 2021-05-19 22:00:00 Errol Luther [facility] SURGICAL PATHOLOGY REQUEST 2021-05-19 21:47:00 Errol Luther [facility] POC GLUCOSE 2021-05-19 21:17:00 Juwan You spital ACTIVATED CLOTTING TIME 2021-05-19 19:12:00 Tom Barber [facility] [place] AN ELECTIVE 2021-05-19 18:11:04 Sukhjinder Medina spital SUPRAGLOTTIC AIRWAY [place] LOWER EXTREMITY 2021-05-19 17:59:00 Juwan You spital ANGIOGRAM,POSSIBLE ANGIOPLASTY,POSSIBLE STENT XR CHEST 1 VW PORTABLE 2021-05-19 15:47:37 Pati [facility] ESTIMATED GFR 2021-05-19 14:34:00 Juwan You spital POC PANEL 2021-05-19 14:34:00 Juwan You spital TYPE AND SCREEN 2021-05-19 14:05:00 Isabell Dickerson PREPARE RBC 2021-05-19 14:05:00 Char Viramontes ospital PREPARE FRESH FROZEN 2021-05-19 14:05:00 [facility] PLASMA PREPARE PLATELET PHERESIS 2021-05-19 14:05:00 [facility] BASIC METABOLIC PANEL 2021-05-19 14:00:00 Jayla [facility] Larry Romero PROTHROMBIN TIME WITH INR 2021-05-19 14:00:00 Jayla [facility] Larry Romero HC COMPLETE BLD COUNT 2021-05-19 14:00:00 [facility]O [facility]FF Larry Romero ABO AND RH CONFIRMATION BY 2021-05-19 14:00:00 Juwan You [facility] PROTOCOL ESTIMATED GFR 2021-05-19 14:00:00 Isabell Dickerson COVID-19 QUALITATIVE 2021-05-19 12:40:00 Juwan You [facility] RT-PCR MEDICAL RELEASE/CLEARANCE 2021-05-13 06:01:00 Doctor Unassigned, [facility] FORMS [facility] US DUPLEX ARTERIAL LOWER 2021-05-12 15:21:31 Juwan You [facility] EXTREMITY BILATERAL Emergency department visit 2013-04-15 05:00:00 [...] push, single or initial substance/drug Eye procedure [facility] Colonoscopy [facility] EGD [facility] (esophagogastroduodenoscop y) gastric outlet reduction section [facility] n Tubal ligation [facility] 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 Test 08:18:48 (1 of 3 - 3-dose series) [code = HEPATITIS B VACCINES (1 of 3 - 3-dose series)] Future Scheduled 2023-04-16 COVID-19 VACCINE (#1) [facility] Test 08:18:48 [code = COVID-19 VACCINE (#1)] Future Scheduled 2023-04-16 Pneumococcal Vaccine: [facility] Test 08:18:48 Pediatrics (0 to 5 Years) and At-Risk Patients (6 to 64 Years) (1 - PCV) [code = Pneumococcal Vaccine: Pediatrics (0 to 5 Years) and At-Risk Patients (6 to 64 Years) (1 - PCV)] Future Scheduled 2023-04-16 Hepatitis C screening [facility] Test 08:18:48 (procedure) [code = 059351975] Future Scheduled 2023-04-16 Screening for [facility] Test 08:18:48 malignant neoplasm of cervix (procedure) [code = 623898943] Future Scheduled 2023-04-16 BREAST CANCER [facility] Test 08:18:48 SCREENING [code = BREAST CANCER SCREENING] Future Scheduled 2023-04-16 INFLUENZA VACCINE (#1) [facility] Test 08:18:48 [code = INFLUENZA VACCINE (#1)] Future Scheduled 2023-04-05 HEPATITIS B VACCINES [facility] Test 15:23:31 (1 of 3 - 3-dose series) [code = HEPATITIS B VACCINES (1 of 3 - 3-dose series)] Future Scheduled 2023-04-05 COVID-19 VACCINE (#1) [facility] Test 15:23:31 [code = COVID-19 VACCINE (#1)] Future Scheduled 2023-04-05 Pneumococcal Vaccine: [facility] Test 15:23:31 Pediatrics (0 to 5 Years) and At-Risk Patients (6 to 64 Years) (1 - PCV) [code = Pneumococcal Vaccine: Pediatrics (0 to 5 Years) and At-Risk Patients (6 to 64 Years) (1 - PCV)] Future Scheduled 2023-04-05 Hepatitis C screening [facility] Test 15:23:31 (procedure) [code = [id number]] Future Scheduled 2023-04-05 Screening for [facility] Test 15:23:31 malignant neoplasm of cervix (procedure) [code = 410174837] Future Scheduled 2023-04-05 BREAST CANCER [facility] Test 15:23:31 SCREENING [code = BREAST CANCER SCREENING] Future Scheduled 2023-04-05 INFLUENZA VACCINE (#1) [facility] Test 15:23:31 [code = INFLUENZA VACCINE (#1)] Future Scheduled 2023-04-05 RSV VACCINES > 60 YR [facility] Test 15:23:31 (1 - 1-dose 60+ series) [code = RSV VACCINES > 60 YR (1 - 1-dose 60+ series)] Future Scheduled 2023-04-05 HEPATITIS B VACCINES [facility] Test 15:23:31 (1 of 3 - 3-dose series) [code = HEPATITIS B VACCINES (1 of 3 - 3-dose series)] Future Scheduled 2023-04-05 COVID-19 VACCINE (#1) [facility] Test 15:23:31 [code = COVID-19 VACCINE (#1)] Future Scheduled 2023-04-05 Pneumococcal Vaccine: [facility] Test 15:23:31 Pediatrics (0 to 5 Years) and At-Risk Patients (6 to 64 Years) (1 - PCV) [code = Pneumococcal Vaccine: Pediatrics (0 to 5 Years) and At-Risk Patients (6 to 64 Years) (1 - PCV)] Future Scheduled 2023-04-05 Hepatitis C screening [facility] Test 15:23:31 (procedure) [code = [id number]] Future Scheduled 2023-04-05 Screening for [facility] Test 15:23:31 malignant neoplasm of cervix (procedure) [code = [id number]] Future Scheduled 2023-04-05 BREAST CANCER [facility] Test 15:23:31 SCREENING [code = BREAST CANCER SCREENING] Future Scheduled 2023-04-05 INFLUENZA VACCINE (#1) [facility] Test 15:23:31 [code = INFLUENZA VACCINE (#1)] Future Scheduled 2023-04-05 RSV VACCINES > 60 YR [facility] Test 15:23:31 (1 - 1-dose 60+ series) [code = RSV VACCINES > 60 YR (1 - 1-dose 60+ series)] Future Scheduled 2023-03-08 HEPATITIS B VACCINES Met [facility] Test 17:12:31 (1 of 3 - 3-dose series) [code = HEPATITIS B VACCINES (1 of 3 - 3-dose series)] Future Scheduled 2023-03-08 COVID-19 VACCINE (#1) [facility] Test 17:12:31 [code = COVID-19 VACCINE (#1)] Future Scheduled 2023-03-08 Pneumococcal Vaccine: [facility] Test 17:12:31 Pediatrics (0 to 5 Years) and At-Risk Patients (6 to 64 Years) (1 - PCV) [code = Pneumococcal Vaccine: Pediatrics (0 to 5 Years) and At-Risk Patients (6 to 64 Years) (1 - PCV)] Future Scheduled 2023-03-08 Hepatitis C screening [facility] Test 17:12:31 (procedure) [code = [id number]] Future Scheduled 2023-03-08 Screening for [facility] Test 17:12:31 malignant neoplasm of cervix (procedure) [code = 367166038] Future Scheduled 2023-03-08 BREAST CANCER [facility] Test 17:12:31 SCREENING [code = BREAST CANCER SCREENING] Future Scheduled 2023-03-08 INFLUENZA VACCINE (#1) [facility] Test 17:12:31 [code = INFLUENZA VACCINE (#1)] Future Scheduled 2023-03-08 HEPATITIS B VACCINES Met [facility] Test 17:12:31 (1 of 3 - 3-dose series) [code = HEPATITIS B VACCINES (1 of 3 - 3-dose series)] Future Scheduled 2023-03-08 COVID-19 VACCINE (#1) [facility] Test 17:12:31 [code = COVID-19 VACCINE (#1)] Future Scheduled 2023-03-08 Pneumococcal Vaccine: [facility] Test 17:12:31 Pediatrics (0 to 5 Years) and At-Risk Patients (6 to 64 Years) (1 - PCV) [code = Pneumococcal Vaccine: Pediatrics (0 to 5 Years) and At-Risk Patients (6 to 64 Years) (1 - PCV)] Future Scheduled 2023-03-08 Hepatitis C screening [facility] Test 17:12:31 (procedure) [code = [id number]] Future Scheduled 2023-03-08 Screening for [facility] Test 17:12:31 malignant neoplasm of cervix (procedure) [code = [id number]] Future Scheduled 2023-03-08 BREAST CANCER [facility] Test 17:12:31 SCREENING [code = BREAST CANCER SCREENING] Future Scheduled 2023-03-08 INFLUENZA VACCINE (#1) [facility] Test 17:12:31 [code = INFLUENZA VACCINE (#1)] Future Scheduled 2023-03-08 HEPATITIS B VACCINES Met [facility] Test 17:12:31 (1 of 3 - 3-dose series) [code = HEPATITIS B VACCINES (1 of 3 - 3-dose series)] Future Scheduled 2023-03-08 COVID-19 VACCINE (#1) [facility] Test 17:12:31 [code = COVID-19 VACCINE (#1)] Future Scheduled 2023-03-08 Pneumococcal Vaccine: [facility] Test 17:12:31 Pediatrics (0 to 5 Years) and At-Risk Patients (6 to 64 Years) (1 - PCV) [code = Pneumococcal Vaccine: Pediatrics (0 to 5 Years) and At-Risk Patients (6 to 64 Years) (1 - PCV)] Future Scheduled 2023-03-08 Hepatitis C screening [facility] Test 17:12:31 (procedure) [code = [id number]] Future Scheduled 2023-03-08 Screening for [facility] Test 17:12:31 malignant neoplasm of cervix (procedure) [code = 955564235] Future Scheduled 2023-03-08 BREAST CANCER [facility] Test 17:12:31 SCREENING [code = BREAST CANCER SCREENING] Future Scheduled 2023-03-08 INFLUENZA VACCINE (#1) [facility] Test 17:12:31 [code = INFLUENZA VACCINE (#1)] Future Scheduled 2023-03-08 HEPATITIS B VACCINES Met [facility] Test 17:12:31 (1 of 3 - 3-dose series) [code = HEPATITIS B VACCINES (1 of 3 - 3-dose series)] Future Scheduled 2023-03-08 COVID-19 VACCINE (#1) [facility] Test 17:12:31 [code = COVID-19 VACCINE (#1)] Future Scheduled 2023-03-08 Pneumococcal Vaccine: [facility] Test 17:12:31 Pediatrics (0 to 5 Years) and At-Risk Patients (6 to 64 Years) (1 - PCV) [code = Pneumococcal Vaccine: Pediatrics (0 to 5 Years) and At-Risk Patients (6 to 64 Years) (1 - PCV)] Future Scheduled 2023-03-08 Hepatitis C screening [facility] Test 17:12:31 (procedure) [code = [id number]] Future Scheduled 2023-03-08 Screening for [facility] Test 17:12:31 malignant neoplasm of cervix (procedure) [code = [id number]] Future Scheduled 2023-03-08 BREAST CANCER [facility] Test 17:12:31 SCREENING [code = BREAST CANCER SCREENING] Future Scheduled 2023-03-08 INFLUENZA VACCINE (#1) [facility] Test 17:12:31 [code = INFLUENZA VACCINE (#1)] Future Scheduled 2023-01-22 HEPATITIS B VACCINES [facility] Test 15:55:51 (1 of 3 - 3-dose series) [code = HEPATITIS B VACCINES (1 of 3 - 3-dose series)] Future Scheduled 2023-01-22 COVID-19 VACCINE (#1) [facility] Test 15:55:51 [code = COVID-19 VACCINE (#1)] Future Scheduled 2023-01-22 Pneumococcal Vaccine: [facility] Test 15:55:51 Pediatrics (0 to 5 Years) and At-Risk Patients (6 to 64 Years) (1 - PCV) [code = Pneumococcal Vaccine: Pediatrics (0 to 5 Years) and At-Risk Patients (6 to 64 Years) (1 - PCV)] Future Scheduled 2023-01-22 Hepatitis C screening [facility] Test 15:55:51 (procedure) [code = [id number]] Future Scheduled 2023-01-22 Screening for [facility] Test 15:55:51 malignant neoplasm of cervix (procedure) [code = 824368985] Future Scheduled 2023-01-22 BREAST CANCER [facility] Test 15:55:51 SCREENING [code = BREAST CANCER SCREENING] Future Scheduled 2023-01-[address] [facility] Test 15:55:51 [code = INFLUENZA VACCINE] Future Scheduled 2023-01-22 HEPATITIS B VACCINES Met [facility] Test 15:55:51 (1 of 3 - 3-dose series) [code = HEPATITIS B VACCINES (1 of 3 - 3-dose series)] Future Scheduled 2023-01-22 COVID-19 VACCINE (#1) [facility] Test 15:55:51 [code = COVID-19 VACCINE (#1)] Future Scheduled 2023-01-22 Pneumococcal Vaccine: [facility] Test 15:55:51 Pediatrics (0 to 5 Years) and At-Risk Patients (6 to 64 Years) (1 - PCV) [code = Pneumococcal Vaccine: Pediatrics (0 to 5 Years) and At-Risk Patients (6 to 64 Years) (1 - PCV)] Future Scheduled 2023-01-22 Hepatitis C screening [facility] Test 15:55:51 (procedure) [code = [id number]] Future Scheduled 2023-01-22 Screening for [facility] Test 15:55:51 malignant neoplasm of cervix (procedure) [code = [id number]] Future Scheduled 2023-01-22 BREAST CANCER [facility] Test 15:55:51 SCREENING [code = BREAST CANCER SCREENING] Future Scheduled 2023-01-[address] [facility] Test 15:55:51 [code = INFLUENZA VACCINE] Future Scheduled 2022-12-19 HEPATITIS B VACCINES Met [facility] Test 02:39:18 (1 of 3 - 3-dose series) [code = HEPATITIS B VACCINES (1 of 3 - 3-dose series)] Future Scheduled 2022-12-19 COVID-19 VACCINE (#1) [facility] Test 02:39:18 [code = COVID-19 VACCINE (#1)] Future Scheduled 2022-12-19 Pneumococcal Vaccine: [facility] Test 02:39:18 Pediatrics (0 to 5 Years) and At-Risk Patients (6 to 64 Years) (1 - PCV) [code = Pneumococcal Vaccine: Pediatrics (0 to 5 Years) and At-Risk Patients (6 to 64 Years) (1 - PCV)] Future Scheduled 2022-12-19 [facility]atitis C screening [facility] Test 02:39:18 (procedure) [code = [id number]] Future Scheduled 2022-12-19 Screening for [facility] Test 02:39:18 malignant neoplasm of cervix (procedure) [code = 959010482] Future Scheduled 2022-12-19 BREAST CANCER [facility] Test 02:39:18 SCREENING [code = BREAST CANCER SCREENING] Future Scheduled 2022-12-19 [facility] 02:39:18 [code = INFLUENZA VACCINE] Future Scheduled 2022-12-19 HEPATITIS B VACCINES Met [facility] Test 02:39:18 (1 of 3 - 3-dose series) [code = HEPATITIS B VACCINES (1 of 3 - 3-dose series)] Future Scheduled 2022-12-19 COVID-19 VACCINE (#1) [facility] Test 02:39:18 [code = COVID-19 VACCINE (#1)] Future Scheduled 2022-12-19 Pneumococcal Vaccine: [facility] Test 02:39:18 Pediatrics (0 to 5 Years) and At-Risk Patients (6 to 64 Years) (1 - PCV) [code = Pneumococcal Vaccine: Pediatrics (0 to 5 Years) and At-Risk Patients (6 to 64 Years) (1 - PCV)] Future Scheduled 2022-12-19 Hepatitis C screening [facility] Test 02:39:18 (procedure) [code = [id number]] Future Scheduled 2022-12-19 Screening for [facility] Test 02:39:18 malignant neoplasm of cervix (procedure) [code = 949902741] Future Scheduled 2022-12-19 BREAST CANCER [facility] Test 02:39:18 SCREENING [code = BREAST CANCER SCREENING] Future Scheduled 2022-12-19 [facility] 02:39:18 [code = INFLUENZA VACCINE] Future Scheduled 2022-12-19 HEPATITIS B VACCINES Met [facility] Test 02:39:18 (1 of 3 - 3-dose series) [code = HEPATITIS B VACCINES (1 of 3 - 3-dose series)] Future Scheduled 2022-12-19 COVID-19 VACCINE (#1) [facility] Test 02:39:18 [code = COVID-19 VACCINE (#1)] Future Scheduled 2022-12-19 Pneumococcal Vaccine: [facility] Test 02:39:18 Pediatrics (0 to 5 Years) and At-Risk Patients (6 to 64 Years) (1 - PCV) [code = Pneumococcal Vaccine: Pediatrics (0 to 5 Years) and At-Risk Patients (6 to 64 Years) (1 - PCV)] Future Scheduled 2022-12-19 Hepatitis C screening [facility] Test 02:39:18 (procedure) [code = [id number]] Future Scheduled 2022-12-19 [facility] Test 02:39:18 malignant neoplasm of cervix (procedure) [code = 435367063] Future Scheduled 2022-12-19 BREAST CANCER [facility] Test 02:39:18 SCREENING [code = BREAST CANCER SCREENING] Future Scheduled 2022-12-19 [facility] 02:39:18 [code = INFLUENZA VACCINE] Future Scheduled 2022-12-19 HEPATITIS B VACCINES Met [facility] Test 02:39:18 (1 of 3 - 3-dose series) [code = HEPATITIS B VACCINES (1 of 3 - 3-dose series)] Future Scheduled 2022-12-19 COVID-19 VACCINE (#1) [facility] Test 02:39:18 [code = COVID-19 VACCINE (#1)] Future Scheduled 2022-12-19 Pneumococcal Vaccine: [facility] Test 02:39:18 Pediatrics (0 to 5 Years) and At-Risk Patients (6 to 64 Years) (1 - PCV) [code = Pneumococcal Vaccine: Pediatrics (0 to 5 Years) and At-Risk Patients (6 to 64 Years) (1 - PCV)] Future Scheduled 2022-12-19 Hepatitis C screening [facility] Test 02:39:18 (procedure) [code = [id number]] Future Scheduled 2022-12-19 Screening for [facility] Test 02:39:18 malignant neoplasm of cervix (procedure) [code = 619654576] Future Scheduled 2022-12-19 BREAST CANCER [facility] Test 02:39:18 SCREENING [code = BREAST CANCER SCREENING] Future Scheduled 2022-12-19 [facility] 02:39:18 [code = INFLUENZA VACCINE] Future Scheduled 2022-12-19 HEPATITIS B VACCINES Met [facility] Test 02:39:18 (1 of 3 - 3-dose series) [code = HEPATITIS B VACCINES (1 of 3 - 3-dose series)] Future Scheduled 2022-12-19 COVID-19 VACCINE (#1) [facility] Test 02:39:18 [code = COVID-19 VACCINE (#1)] Future Scheduled 2022-12-19 Pneumococcal Vaccine: [facility] Test 02:39:18 Pediatrics (0 to 5 Years) and At-Risk Patients (6 to 64 Years) (1 - PCV) [code = Pneumococcal Vaccine: Pediatrics (0 to 5 Years) and At-Risk Patients (6 to 64 Years) (1 - PCV)] Future Scheduled 2022-12-19 Hepatitis C screening [facility] Test 02:39:18 (procedure) [code = 400930476] Future Scheduled 2022-12-19 Screening for [facility] Test 02:39:18 malignant neoplasm of cervix (procedure) [code = 796698264] Future Scheduled 2022-12-19 BREAST CANCER [facility] Test 02:39:18 SCREENING [code = BREAST CANCER SCREENING] Future Scheduled 2022-12-19 [facility] 02:39:18 [code = INFLUENZA VACCINE] Future Scheduled 2022-12-10 HEPATITIS B VACCINES Met [facility] Test 14:28:00 (1 of 3 - 3-dose series) [code = HEPATITIS B VACCINES (1 of 3 - 3-dose series)] Future Scheduled 2022-12-10 COVID-19 VACCINE (#1) [facility] Test 14:28:00 [code = COVID-19 VACCINE (#1)] Future Scheduled 2022-12-10 Pneumococcal Vaccine: [facility] Test 14:28:00 Pediatrics (0 to 5 Years) and At-Risk Patients (6 to 64 Years) (1 - PCV) [code = Pneumococcal Vaccine: Pediatrics (0 to 5 Years) and At-Risk Patients (6 to 64 Years) (1 - PCV)] Future Scheduled 2022-12-10 Hepatitis C screening [facility] Test 14:28:00 (procedure) [code = 090939175] Future Scheduled 2022-12-10 Screening for [facility] Test 14:28:00 malignant neoplasm of cervix (procedure) [code = 330795280] Future Scheduled 2022-12-10 BREAST CANCER [facility] Test 14:28:00 SCREENING [code = BREAST CANCER SCREENING] Future Scheduled 2022-12-10 [facility] 14:28:00 [code = INFLUENZA VACCINE] Future Scheduled 2022-12-04 HEPATITIS B VACCINES Met [facility] Test 23:23:00 (1 of 3 - 3-dose series) [code = HEPATITIS B VACCINES (1 of 3 - 3-dose series)] Future Scheduled 2022-12-04 COVID-19 VACCINE (#1) [facility] Test 23:23:00 [code = COVID-19 VACCINE (#1)] Future Scheduled 2022-12-04 Pneumococcal Vaccine: [facility] Test 23:23:00 Pediatrics (0 to 5 Years) and At-Risk Patients (6 to 64 Years) (1 - PCV) [code = Pneumococcal Vaccine: Pediatrics (0 to 5 Years) and At-Risk Patients (6 to 64 Years) (1 - PCV)] Future Scheduled 2022-12-04 Hepatitis C screening [facility] Test 23:23:00 (procedure) [code = 097518944] Future Scheduled 2022-12-04 Screening for [facility] Test 23:23:00 malignant neoplasm of cervix (procedure) [code = 135810724] Future Scheduled 2022-12-04 BREAST CANCER [facility] Test 23:23:00 SCREENING [code = BREAST CANCER SCREENING] Future Scheduled 2022-12-04 [facility] 23:23:00 [code = INFLUENZA VACCINE] Future Scheduled 2022-12-04 HEPATITIS B VACCINES Met [facility] Test 23:23:00 (1 of 3 - 3-dose series) [code = HEPATITIS B VACCINES (1 of 3 - 3-dose series)] Future Scheduled 2022-12-04 COVID-19 VACCINE (#1) [facility] Test 23:23:00 [code = COVID-19 VACCINE (#1)] Future Scheduled 2022-12-04 Pneumococcal Vaccine: [facility] Test 23:23:00 Pediatrics (0 to 5 Years) and At-Risk Patients (6 to 64 Years) (1 - PCV) [code = Pneumococcal Vaccine: Pediatrics (0 to 5 Years) and At-Risk Patients (6 to 64 Years) (1 - PCV)] Future Scheduled 2022-12-04 Hepatitis C screening [facility] Test 23:23:00 (procedure) [code = 793228811] Future Scheduled 2022-12-04 [facility] Test 23:23:00 malignant neoplasm of cervix (procedure) [code = 902961223] Future Scheduled 2022-12-04 BREAST CANCER [facility] Test 23:23:00 SCREENING [code = BREAST CANCER SCREENING] Future Scheduled 2022-12-04 [facility] 23:23:00 [code = INFLUENZA VACCINE] Future Scheduled 2022-11-12 HEPATITIS B VACCINES Met [facility] Test 20:50:47 (1 of 3 - 3-dose series) [code = HEPATITIS B VACCINES (1 of 3 - 3-dose series)] Future Scheduled 2022-11-12 COVID-19 VACCINE (#1) [facility] Test 20:50:47 [code = COVID-19 VACCINE (#1)] Future Scheduled 2022-11-12 Pneumococcal Vaccine: [facility] Test 20:50:47 Pediatrics (0 to 5 Years) and At-Risk Patients (6 to 64 Years) (1 - PCV) [code = Pneumococcal Vaccine: Pediatrics (0 to 5 Years) and At-Risk Patients (6 to 64 Years) (1 - PCV)] Future Scheduled 2022-11-12 Hepatitis C screening [facility] Test 20:50:47 (procedure) [code = 410244623] Future Scheduled 2022-11-12 Screening for [facility] Test 20:50:47 malignant neoplasm of cervix (procedure) [code = 410016724] Future Scheduled 2022-11-12 BREAST CANCER [facility] Test 20:50:47 SCREENING [code = BREAST CANCER SCREENING] Future Scheduled 2022-11-12 [facility] 20:50:47 [code = INFLUENZA VACCINE] Future Scheduled 2022-11-12 HEPATITIS B VACCINES Met [facility] Test 20:50:47 (1 of 3 - 3-dose series) [code = HEPATITIS B VACCINES (1 of 3 - 3-dose series)] Future Scheduled 2022-11-12 COVID-19 VACCINE (#1) [facility] Test 20:50:47 [code = COVID-19 VACCINE (#1)] Future Scheduled 2022-11-12 Pneumococcal Vaccine: [facility] Test 20:50:47 Pediatrics (0 to 5 Years) and At-Risk Patients (6 to 64 Years) (1 - PCV) [code = Pneumococcal Vaccine: Pediatrics (0 to 5 Years) and At-Risk Patients (6 to 64 Years) (1 - PCV)] Future Scheduled 2022-11-12 Hepatitis C screening [facility] Test 20:50:47 (procedure) [code = 073249050] Future Scheduled 2022-11-12 [facility] Test 20:50:47 malignant neoplasm of cervix (procedure) [code = 505814346] Future Scheduled 2022-11-12 BREAST CANCER [facility] Test 20:50:47 SCREENING [code = BREAST CANCER SCREENING] Future Scheduled 2022-11-12 [facility]ACCINE [facility] 20:50:47 [code = INFLUENZA VACCINE] Future Scheduled 2022-11-12 HEPATITIS B VACCINES Met [facility] Test 20:50:47 (1 of 3 - 3-dose series) [code = HEPATITIS B VACCINES (1 of 3 - 3-dose series)] Future Scheduled 2022-11-12 COVID-19 VACCINE (#1) [facility] Test 20:50:47 [code = COVID-19 VACCINE (#1)] Future Scheduled 2022-11-12 Pneumococcal Vaccine: [facility] Test 20:50:47 Pediatrics (0 to 5 Years) and At-Risk Patients (6 to 64 Years) (1 - PCV) [code = Pneumococcal Vaccine: Pediatrics (0 to 5 Years) and At-Risk Patients (6 to 64 Years) (1 - PCV)] Future Scheduled 2022-11-12 Hepatitis C screening [facility] Test 20:50:47 (procedure) [code = 621777457] Future Scheduled 2022-11-12 [facility] Test 20:50:47 malignant neoplasm of cervix (procedure) [code = 267322715] Future Scheduled 2022-11-12 BREAST CANCER [facility] Test 20:50:47 SCREENING [code = BREAST CANCER SCREENING] Future Scheduled 2022-11-12 [facility]ZA [facility]ACCINE [facility] 20:50:47 [code = INFLUENZA VACCINE] Future Scheduled 2022-10-23 HEPATITIS B VACCINES Met [facility] Test 05:16:19 (1 of 3 - 3-dose series) [code = HEPATITIS B VACCINES (1 of 3 - 3-dose series)] Future Scheduled 2022-10-23 COVID-19 VACCINE (#1) [facility] Test 05:16:19 [code = COVID-19 VACCINE (#1)] Future Scheduled 2022-10-23 Pneumococcal Vaccine: [facility] Test 05:16:19 Pediatrics (0 to 5 Years) and At-Risk Patients (6 to 64 Years) (1 - PCV) [code = Pneumococcal Vaccine: Pediatrics (0 to 5 Years) and At-Risk Patients (6 to 64 Years) (1 - PCV)] Future Scheduled 2022-10-23 Hepatitis C screening [facility] Test 05:16:19 (procedure) [code = 903556208] Future Scheduled 2022-10-23 Screening for [facility] Test 05:16:19 malignant neoplasm of cervix (procedure) [code = 711826503] Future Scheduled 2022-10-23 BREAST CANCER [facility] Test 05:16:19 SCREENING [code = BREAST CANCER SCREENING] Future Scheduled 2022-10-23 [facility] 05:16:19 [code = INFLUENZA VACCINE] Future Scheduled 2022-06-11 HEPATITIS B VACCINES Met [facility] Test 02:09:30 (1 of 3 - 3-dose series) [code = HEPATITIS B VACCINES (1 of 3 - 3-dose series)] Future Scheduled 2022-06-11 COVID-19 VACCINE (#1) [facility] Test 02:09:30 [code = COVID-19 VACCINE (#1)] Future Scheduled 2022-06-11 Pneumococcal Vaccine: [facility] Test 02:09:30 Pediatrics (0 to 5 Years) and At-Risk Patients (6 to 64 Years) (1 - PCV) [code = Pneumococcal Vaccine: Pediatrics (0 to 5 Years) and At-Risk Patients (6 to 64 Years) (1 - PCV)] Future Scheduled 2022-06-11 Hepatitis C screening [facility] Test 02:09:30 (procedure) [code = 707016578] Future Scheduled 2022-06-11 Screening for [facility] Test 02:09:30 malignant neoplasm of cervix (procedure) [code = 644039347] Future Scheduled 2022-06-11 [facility] 02:09:30 [code = INFLUENZA VACCINE] Future Scheduled 2022-06-11 HEPATITIS B VACCINES Met [facility] Test 02:09:30 (1 of 3 - 3-dose series) [code = HEPATITIS B VACCINES (1 of 3 - 3-dose series)] Future Scheduled 2022-06-11 COVID-19 VACCINE (#1) [facility] Test 02:09:30 [code = COVID-19 VACCINE (#1)] Future Scheduled 2022-06-11 Pneumococcal Vaccine: [facility] Test 02:09:30 Pediatrics (0 to 5 Years) and At-Risk Patients (6 to 64 Years) (1 - PCV) [code = Pneumococcal Vaccine: Pediatrics (0 to 5 Years) and At-Risk Patients (6 to 64 Years) (1 - PCV)] Future Scheduled 2022-06-11 Hepatitis C screening [facility] Test 02:09:30 (procedure) [code = 032943761] Future Scheduled 2022-06-11 [facility] 02:09:30 malignant neoplasm of cervix (procedure) [code = 508239505] Future Scheduled 2022-06-11 [facility] 02:09:30 [code = INFLUENZA VACCINE] Future Scheduled 2022-06-11 HEPATITIS B VACCINES Met [facility] Test 02:09:30 (1 of 3 - 3-dose series) [code = HEPATITIS B VACCINES (1 of 3 - 3-dose series)] Future Scheduled 2022-06-11 COVID-19 VACCINE (#1) [facility] Test 02:09:30 [code = COVID-19 VACCINE (#1)] Future Scheduled 2022-06-11 Pneumococcal Vaccine: [facility] Test 02:09:30 Pediatrics (0 to 5 Years) and At-Risk Patients (6 to 64 Years) (1 - PCV) [code = Pneumococcal Vaccine: Pediatrics (0 to 5 Years) and At-Risk Patients (6 to 64 Years) (1 - PCV)] Future Scheduled 2022-06-11 Hepatitis C screening [facility] Test 02:09:30 (procedure) [code = 385293374] Future Scheduled 2022-06-11 [facility] 02:09:30 malignant neoplasm of cervix (procedure) [code = 637638985] Future Scheduled 2022-06-11 [facility] 02:09:30 [code = INFLUENZA VACCINE] Future Scheduled 2022-06-11 HEPATITIS B VACCINES Met [facility] Test 02:09:30 (1 of 3 - 3-dose series) [code = HEPATITIS B VACCINES (1 of 3 - 3-dose series)] Future Scheduled 2022-06-11 COVID-19 VACCINE (#1) [facility] Test 02:09:30 [code = COVID-19 VACCINE (#1)] Future Scheduled 2022-06-11 Pneumococcal Vaccine: [facility] Test 02:09:30 Pediatrics (0 to 5 Years) and At-Risk Patients (6 to 64 Years) (1 - PCV) [code = Pneumococcal Vaccine: Pediatrics (0 to 5 Years) and At-Risk Patients (6 to 64 Years) (1 - PCV)] Future Scheduled 2022-06-11 Hepatitis C screening [facility] Test 02:09:30 (procedure) [code = 850384827] Future Scheduled 2022-06-11 Screening for [facility] Test 02:09:30 malignant neoplasm of cervix (procedure) [code = 916973827] Future Scheduled 2022-06-11 [facility] 02:09:30 [code = INFLUENZA VACCINE] Future Scheduled 2022-06-11 HEPATITIS B VACCINES Met [facility] Test 02:09:30 (1 of 3 - 3-dose series) [code = HEPATITIS B VACCINES (1 of 3 - 3-dose series)] Future Scheduled 2022-06-11 COVID-19 VACCINE (#1) [facility] Test 02:09:30 [code = COVID-19 VACCINE (#1)] Future Scheduled 2022-06-11 Pneumococcal Vaccine: [facility] Test 02:09:30 Pediatrics (0 to 5 Years) and At-Risk Patients (6 to 64 Years) (1 - PCV) [code = Pneumococcal Vaccine: Pediatrics (0 to 5 Years) and At-Risk Patients (6 to 64 Years) (1 - PCV)] Future Scheduled 2022-06-11 Hepatitis C screening [facility] Test 02:09:30 (procedure) [code = 912827397] Future Scheduled 2022-06-11 Screening for [facility] Test 02:09:30 malignant neoplasm of cervix (procedure) [code = 627032443] Future Scheduled 2022-06-11 [facility] 02:09:30 [code = INFLUENZA VACCINE] Future Scheduled 2022-06-11 HEPATITIS B VACCINES Met [facility] Test 02:09:30 (1 of 3 - 3-dose series) [code = HEPATITIS B VACCINES (1 of 3 - 3-dose series)] Future Scheduled 2022-06-11 COVID-19 VACCINE (#1) [facility] Test 02:09:30 [code = COVID-19 VACCINE (#1)] Future Scheduled 2022-06-11 Pneumococcal Vaccine: [facility] Test 02:09:30 Pediatrics (0 to 5 Years) and At-Risk Patients (6 to 64 Years) (1 - PCV) [code = Pneumococcal Vaccine: Pediatrics (0 to 5 Years) and At-Risk Patients (6 to 64 Years) (1 - PCV)] Future Scheduled 2022-06-11 Hepatitis C screening [facility] Test 02:09:30 (procedure) [code = 209160388] Future Scheduled 2022-06-11 Screening for [facility] Test 02:09:30 malignant neoplasm of cervix (procedure) [code = 176524856] Future Scheduled 2022-06-11 [facility] 02:09:30 [code = INFLUENZA VACCINE] Future Scheduled 2022-06-11 HEPATITIS B VACCINES Met [facility] Test 02:09:30 (1 of 3 - 3-dose series) [code = HEPATITIS B VACCINES (1 of 3 - 3-dose series)] Future Scheduled 2022-06-11 COVID-19 VACCINE (#1) [facility] Test 02:09:30 [code = COVID-19 VACCINE (#1)] Future Scheduled 2022-06-11 Pneumococcal Vaccine: [facility] Test 02:09:30 Pediatrics (0 to 5 Years) and At-Risk Patients (6 to 64 Years) (1 - PCV) [code = Pneumococcal Vaccine: Pediatrics (0 to 5 Years) and At-Risk Patients (6 to 64 Years) (1 - PCV)] Future Scheduled 2022-06-11 Hepatitis C screening [facility] Test 02:09:30 (procedure) [code = 502073134] Future Scheduled 2022-06-11 Screening for [facility] Test 02:09:30 malignant neoplasm of cervix (procedure) [code = 506414012] Future Scheduled 2022-06-11 [facility] 02:09:30 [code = INFLUENZA VACCINE] Future Scheduled 2022-06-01 HEPATITIS B VACCINES Met [facility] Test 16:17:59 (1 of 3 - 3-dose series) [code = HEPATITIS B VACCINES (1 of 3 - 3-dose series)] Future Scheduled 2022-06-01 COVID-19 VACCINE (#1) [facility] Test 16:17:59 [code = COVID-19 VACCINE (#1)] Future Scheduled 2022-06-01 Pneumococcal Vaccine: [facility] Test 16:17:59 Pediatrics (0 to 5 Years) and At-Risk Patients (6 to 64 Years) (1 - PCV) [code = Pneumococcal Vaccine: Pediatrics (0 to 5 Years) and At-Risk Patients (6 to 64 Years) (1 - PCV)] Future Scheduled 2022-06-01 Hepatitis C screening [facility] Test 16:17:59 (procedure) [code = 115151886] Future Scheduled 2022-06-01 Screening for [facility] Test 16:17:59 malignant neoplasm of cervix (procedure) [code = 429913930] Future Scheduled 2022-06-01 [facility] 16:17:59 [code = INFLUENZA VACCINE] Future Scheduled 2022-04-25 HEPATITIS B VACCINES Met [facility] Test 12:43:16 (1 of 3 - 3-dose series) [code = HEPATITIS B VACCINES (1 of 3 - 3-dose series)] Future Scheduled 2022-04-25 COVID-19 VACCINE (#1) [facility] Test 12:43:16 [code = COVID-19 VACCINE (#1)] Future Scheduled 2022-04-25 Pneumococcal Vaccine: [facility] Test 12:43:16 Pediatrics (0 to 5 Years) and At-Risk Patients (6 to 64 Years) (1 - PCV) [code = Pneumococcal Vaccine: Pediatrics (0 to 5 Years) and At-Risk Patients (6 to 64 Years) (1 - PCV)] Future Scheduled 2022-04-25 Hepatitis C screening [facility] Test 12:43:16 (procedure) [code = 183656073] Future Scheduled 2022-04-25 [facility] Test 12:43:16 malignant neoplasm of cervix (procedure) [code = 535117744] Future Scheduled 2022-04-25 [facility]ACCINE [facility] Test 12:43:16 [code = INFLUENZA VACCINE] Future Scheduled 2022-02-27 HEPATITIS B VACCINES Met [facility] Test 05:24:42 (1 of 3 - 3-dose series) [code = HEPATITIS B VACCINES (1 of 3 - 3-dose series)] Future Scheduled 2022-02-27 COVID-19 VACCINE (#1) [facility] Test 05:24:42 [code = COVID-19 VACCINE (#1)] Future Scheduled 2022-02-27 Pneumococcal Vaccine: [facility] Test 05:24:42 Pediatrics (0 to 5 Years) and At-Risk Patients (6 to 64 Years) (1 - PCV) [code = Pneumococcal Vaccine: Pediatrics (0 to 5 Years) and At-Risk Patients (6 to 64 Years) (1 - PCV)] Future Scheduled 2022-02-27 Hepatitis C screening [facility] Test 05:24:42 (procedure) [code = 497405798] Future Scheduled 2022-02-27 Screening for [facility] Test 05:24:42 malignant neoplasm of cervix (procedure) [code = 057083178] Future Scheduled 2022-02-27 [facility]ACCINE [facility] Test 05:24:42 [code = INFLUENZA VACCINE] Future Scheduled 2022-02-27 HEPATITIS B VACCINES Met [facility] Test 05:24:42 (1 of 3 - 3-dose series) [code = HEPATITIS B VACCINES (1 of 3 - 3-dose series)] Future Scheduled 2022-02-27 COVID-19 VACCINE (#1) [facility] Test 05:24:42 [code = COVID-19 VACCINE (#1)] Future Scheduled 2022-02-27 Pneumococcal Vaccine: [facility] Test 05:24:42 Pediatrics (0 to 5 Years) and At-Risk Patients (6 to 64 Years) (1 - PCV) [code = Pneumococcal Vaccine: Pediatrics (0 to 5 Years) and At-Risk Patients (6 to 64 Years) (1 - PCV)] Future Scheduled 2022-02-27 Hepatitis C screening [facility] Test 05:24:42 (procedure) [code = 882747609] Future Scheduled 2022-02-27 [facility] Test 05:24:42 malignant neoplasm of cervix (procedure) [code = 391881560] Future Scheduled 2022-02-27 [facility]ACCINE [facility] Test 05:24:42 [code = INFLUENZA VACCINE] Future Scheduled 2022-02-27 HEPATITIS B VACCINES Met [facility] Test 05:24:42 (1 of 3 - 3-dose series) [code = HEPATITIS B VACCINES (1 of 3 - 3-dose series)] Future Scheduled 2022-02-27 COVID-19 VACCINE (#1) [facility] Test 05:24:42 [code = COVID-19 VACCINE (#1)] Future Scheduled 2022-02-27 Pneumococcal Vaccine: [facility] Test 05:24:42 Pediatrics (0 to 5 Years) and At-Risk Patients (6 to 64 Years) (1 - PCV) [code = Pneumococcal Vaccine: Pediatrics (0 to 5 Years) and At-Risk Patients (6 to 64 Years) (1 - PCV)] Future Scheduled 2022-02-27 Hepatitis C screening [facility] Test 05:24:42 (procedure) [code = 866741130] Future Scheduled 2022-02-27 Screening for [facility] Test 05:24:42 malignant neoplasm of cervix (procedure) [code = 529770502] Future Scheduled 2022-02-27 [facility]INE [facility] Test 05:24:42 [code = INFLUENZA VACCINE] Future Scheduled 2022-02-27 HEPATITIS B VACCINES Met [facility] Test 05:24:42 (1 of 3 - 3-dose series) [code = HEPATITIS B VACCINES (1 of 3 - 3-dose series)] Future Scheduled 2022-02-27 COVID-19 VACCINE (#1) [facility] Test 05:24:42 [code = COVID-19 VACCINE (#1)] Future Scheduled 2022-02-27 Pneumococcal Vaccine: [facility] Test 05:24:42 Pediatrics (0 to 5 Years) and At-Risk Patients (6 to 64 Years) (1 - PCV) [code = Pneumococcal Vaccine: Pediatrics (0 to 5 Years) and At-Risk Patients (6 to 64 Years) (1 - PCV)] Future Scheduled 2022-02-27 Hepatitis C screening [facility] Test 05:24:42 (procedure) [code = 972306086] Future Scheduled 2022-02-27 Screening for [facility] Test 05:24:42 malignant neoplasm of cervix (procedure) [code = 942508553] Future Scheduled 2022-02-27 [facility] Test 05:24:42 [code = INFLUENZA VACCINE] Future Scheduled 2022-02-27 HEPATITIS B VACCINES Met [facility] Test 05:24:42 (1 of 3 - 3-dose series) [code = HEPATITIS B VACCINES (1 of 3 - 3-dose series)] Future Scheduled 2022-02-27 COVID-19 VACCINE (#1) [facility] Test 05:24:42 [code = COVID-19 VACCINE (#1)] Future Scheduled 2022-02-27 Pneumococcal Vaccine: [facility] Test 05:24:42 Pediatrics (0 to 5 Years) and At-Risk Patients (6 to 64 Years) (1 - PCV) [code = Pneumococcal Vaccine: Pediatrics (0 to 5 Years) and At-Risk Patients (6 to 64 Years) (1 - PCV)] Future Scheduled 2022-02-27 Hepatitis C screening [facility] Test 05:24:42 (procedure) [code = 077484422] Future Scheduled 2022-02-27 Screening for [facility] Test 05:24:42 malignant neoplasm of cervix (procedure) [code = 706015455] Future Scheduled 2022-02-[address] [facility] Test 05:24:42 [code = INFLUENZA VACCINE] Future Scheduled 2022-02-27 HEPATITIS B VACCINES Met [facility] Test 05:24:42 (1 of 3 - 3-dose series) [code = HEPATITIS B VACCINES (1 of 3 - 3-dose series)] Future Scheduled 2022-02-27 COVID-19 VACCINE (#1) [facility] Test 05:24:42 [code = COVID-19 VACCINE (#1)] Future Scheduled 2022-02-27 Pneumococcal Vaccine: [facility] Test 05:24:42 Pediatrics (0 to 5 Years) and At-Risk Patients (6 to 64 Years) (1 - PCV) [code = Pneumococcal Vaccine: Pediatrics (0 to 5 Years) and At-Risk Patients (6 to 64 Years) (1 - PCV)] Future Scheduled 2022-02-27 Hepatitis C screening [facility] Test 05:24:42 (procedure) [code = 678423415] Future Scheduled 2022-02-27 Screening for [facility] Test 05:24:42 malignant neoplasm of cervix (procedure) [code = 570151373] Future Scheduled 2022-02-27 [facility] Test 05:24:42 [code = INFLUENZA VACCINE] Future Scheduled 2022-02-27 HEPATITIS B VACCINES Met [facility] Test 05:24:42 (1 of 3 - 3-dose series) [code = HEPATITIS B VACCINES (1 of 3 - 3-dose series)] Future Scheduled 2022-02-27 COVID-19 VACCINE (#1) [facility] Test 05:24:42 [code = COVID-19 VACCINE (#1)] Future Scheduled 2022-02-27 Pneumococcal Vaccine: [facility] Test 05:24:42 Pediatrics (0 to 5 Years) and At-Risk Patients (6 to 64 Years) (1 - PCV) [code = Pneumococcal Vaccine: Pediatrics (0 to 5 Years) and At-Risk Patients (6 to 64 Years) (1 - PCV)] Future Scheduled 2022-02-27 Hepatitis C screening [facility] Test 05:24:42 (procedure) [code = 084954186] Future Scheduled 2022-02-27 Screening for [facility] Test 05:24:42 malignant neoplasm of cervix (procedure) [code = 306032259] Future Scheduled 2022-02-27 [facility] Test 05:24:42 [code = INFLUENZA VACCINE] Future Scheduled 2022-02-27 HEPATITIS B VACCINES Met [facility] Test 05:24:42 (1 of 3 - 3-dose series) [code = HEPATITIS B VACCINES (1 of 3 - 3-dose series)] Future Scheduled 2022-02-27 COVID-19 VACCINE (#1) [facility] Test 05:24:42 [code = COVID-19 VACCINE (#1)] Future Scheduled 2022-02-27 Pneumococcal Vaccine: [facility] Test 05:24:42 Pediatrics (0 to 5 Years) and At-Risk Patients (6 to 64 Years) (1 - PCV) [code = Pneumococcal Vaccine: Pediatrics (0 to 5 Years) and At-Risk Patients (6 to 64 Years) (1 - PCV)] Future Scheduled 2022-02-27 Hepatitis C screening [facility] Test 05:24:42 (procedure) [code = 868369089] Future Scheduled 2022-02-27 Screening for [facility] Test 05:24:42 malignant neoplasm of cervix (procedure) [code = 206528407] Future Scheduled 2022-02-27 [facility]ACCINE [facility] Test 05:24:42 [code = INFLUENZA VACCINE] Future Scheduled 2021-07-22 COVID-19 VACCINE (1) Met [facility] Test 13:11:04 [code = COVID-19 VACCINE (1)] Future Scheduled 2021-07-22 Hepatitis C screening [facility] Test 13:11:04 (procedure) [code = 588589777] Future Scheduled 2021-07-22 Screening for [facility] Test 13:11:04 malignant neoplasm of cervix (procedure) [code = 440442920] Future Scheduled 2021-07-[address] [facility] Test 13:11:04 [code = INFLUENZA VACCINE] Encounters Start End Encounter Admission Attending Care Care Encounter Source Date/Time Date/Time Type Type Clinicians Facility Department ID 2022-12-15 Outpatient [facility] [id number] [place] 16:29:22 [id number] [facility] 2022-12-11 Outpatient [facility] [id number] [place] 01:41:48 [id number] [facility] 2022-12-10 Outpatient [facility] [id number] [place] 14:27:47 [id number] [facility] 2022-08-28 Outpatient [facility] [id number] [place] 10:54:07 [id number] [facility] 2022-04-29 Outpatient [facility] [id number] [place] 09:02:27 [id number] [facility] 2022-04-28 Outpatient [facility] [id number] [place] 12:17:07 [id number] [facility] 2021-12-29 Outpatient [facility] [id number] [place] 11:56:31 [id number] [facility] 2021-12-19 Outpatient [facility] [id number] [place] 14:05:12 [id number] [facility] 2021-12-12 Outpatient [facility] [id number] [place] 12:11:07 [id number] [facility] 2021-12-05 Outpatient [facility] [id number] [place] 20:09:51 [id number] [facility] 2021-10-28 Outpatient [facility] [id number] [place] 17:04:22 [id number] [facility] 2021-07-22 Outpatient [facility] [id number] Memoria 00:10:30 r Medical 05 l [facility] 2021-07-22 Preadmit nullFlavo [id number] Memoria 00:10:30 r [facility] 68 l [place] 2021-07-22 Outpatient [facility]Fl[facility] [id number] Memoria 00:10:30 r Medical 06 l [facility] 2021-04-22 Emergency [facility] [id number] Univers 02:13:03 ity [facility] 2021-04-18 Emergency [facility] [id number] Univers 22:32:23 ity [facility] 2021-04-17 Emergency [facility] [id number] [facility]17 2023-04-17 Outpatient GC_GCBZW_Ka PRIV PRIV [id number] [facility] 00:00:00 00:00:00 diyala_S [id number] Medic al 2023-04-01 2023-04-01 Outpatient SFA SFA [id number] Luis Miguel 11:48:13 11:48:13 1012 [facility] 2023-03-18 2023-03-18 Outpatient SFA SFA [id number] Luis Miguel 14:21:37 14:21:37 09 F [place] 2023-02-10 2023-02-10 Outpatient SFA SFA [id number] Luis Miguel 09:13:19 09:13:19 0823 F [facility] 2022-12-12 2022-12-16 Inpatient E MATEUSZ, [facility] [address] [facility] 05:29:00 13:20:00 ZURDO 2022-12-10 2022-12-11 Emergency E [facility]RULY[facility] [id number] [facility] 14:26:00 02:37:00 VELMA 2022-10-24 2022-10-24 Outpatient Daniels_b DMG DMG [id number] [facility] 00:00:00 00:00:00 0506 [facility] 2022-10-24 2022-10-24 Outpatient Daniels_b DMG DMG [id number] [facility] 00:00:00 00:00:00 1026 [facility] l Group 2022-08-28 2022-08-28 Outpatient Daniels_b DMG DMG [id number] [facility] 00:00:00 00:00:00 0310 [facility] l [facility] 2022-08-28 2022-08-28 Outpatient Daniels_b DMG G [id number] [facility] 00:00:00 00:00:00 0315 [facility] l Group 2022-04-09 2022-04-09 Outpatient Nodal_J DMG DMG [id number] 022 [facility] 00:00:00 00:00:00 1020 Medica l Group 2022-01-02 2022-01-02 Outpatient Deshazo_T DMG G [id number] [facility] 03:37:00 03:37:00 0715 [facility]ica l Group 2021-12-15 2021-12-15 Outpatient [facility] [id number] [place] 08:00:00 08:00:00 [facility] 2021-12-02 2021-12-02 Travel 1.2.840.1 1.2.092.726 [id number] [facility]i 00:00:00 00:00:[address] 3.430.2.7 0.2.7.3.698 Ho spita .3.321046 084.8 l .8 2021-11-13 2021-11-13 Transcribe Patience, 1.2.840.1 [id number] Methodi 00:00:00 00:00:00 Orders Jose Miguel Hearn 15935.1.[address] 3.430.2.7 Hospit a .3.901068 l .8 2021-11-05 2021-11-05 Outpatient Deshazo_T DMG DMG [id number] [facility] 12:00:00 12:00:00 0518 Medica l Group 2021-10-29 2021-10-29 Telephone Rosy, 1.2.840.1 [id number] Methodi 00:00:00 00:00:[address] Mohamed 3.430.2.7 Hospit a .3.633141 l .8 2021-08-20 2021-08-20 Outpatient Deshazo_T DMG DMG [id number] [facility] 12:30:00 12:30:00 0302 Medica l Group 2021-07-08 2021-07-08 Office Ann, 1.2.840.1 [id number] [facility]i 13:00:00 14:25:36 Visit Bessie 26868.1.[address] [place] 3.430.2.7 Hosp jo-ann .3.558721 l .8 2021-07-08 2021-07-08 Telephone Anthony, 1.2.840.1 [id number] 2100 [id number] Methodi 00:00:00 00:00:[address] 3.430.2.7 Hospit a .3.952504 l .8 2021-07-08 2021-07-08 Travel 1.2.840.1 1.2.240.054 8664 [id number] [facility]i 00:00:00 00:00:[address] 3.430.2.7 0.2.7.3.698 Ho spita .3.408007 084.8 l .8 2021-07-03 2021-07-03 CAV Melany 2.16.840. 2.16.840.1. CLAC [id number] [facility] 19:00:00 20:00:00 Vladimir 1.564205. 267328.4.6. 467 [facility] 4.6.94340 [id number] 2021-07-03 2021-07-03 Telephone Seth, 1.2.840.1 [id number] 2099 [id number] [facility]i 00:00:00 00:00:[address] [place] 3.430.2.7 Hosp jo-ann .3.893747 l .8 2021-06-24 2021-06-24 Outpatient [facility] [id number] [facility] 05:31:00 05:31:00 0104 Medica l Group 2021-06-23 2021-06-23 Telephone Anthony, 1.2.840.1 [id number] 2099 [id number] Methodi 00:00:00 00:00:[address] 3.430.2.7 Hospit a .3.736024 l .8 2021-06-04 2021-06-18 Hospital Sivan Stewart 1.2.840.1 [id number] Methodi 18:20:00 18:13:00 Encounter Brasher, Rachellisa Lew 49802.1.[address] Nagel, Holden Ortizra 3.430.2.7 Hospita Juan C Shahidal Kalen .3.350427 l Aurelio Schumacher .8 2021-06-16 2021-06-16 Anesthesia Yousif, 1.2.840.1 [id number] Methodi 23:59:59 23:59:59 Event Alesia Coelho 20210.1.[address] 3.430.2.7 Hospit a .3.514231 l .8 2021-06-16 2021-06-16 Surgery Diaz, 1.2.840.1 [id number] 2341 Methodi 13:30:00 17:45:[address] [facility] 3.430.2.7 Hosp jo-ann .3.658627 l .8 2021-06-16 2021-06-16 Anesthesia Jose Carlos, 1.2.840.1 [id number] 996 [id number] Methodi 15:19:00 17:19:00 Event Sethlachelleayo 09329.1.1 309 s t V. 3.430.2.7 Hospit a .3.083397 l .8 2021-06-10 2021-06-10 Surgery PatiJuwan 1.2.840.1 [id number] 72888 82867 Methodi 08:00:00 10:30:[address] 3.430.2.7 Hospit a .3.238527 l .8 2021-06-10 2021-06-10 Anesthesia Doc, 1.2.840.1 [id number] Methodi 08:26:00 09:40:00 Event Sofi 75254.1.[address] Marquita 3.430.2.7 Hosp jo-ann .3.598954 l .8 2021-06-09 2021-06-09 Prep for Robert, 1.2.840.1 [id number] 748 [id number] Methodi 00:00:00 00:00:00 Surgery Gayle 48092.1.[address] 3.430.2.7 Hospit a .3.160710 l .8 2021-06-09 2021-06-09 Prep for Robert, 1.2.840.1 [id number] 006 [id number] Methodi 00:00:00 00:00:00 Surgery Gayle 38213.1.[address] 3.430.2.7 Hospit a .3.625501 l .8 2021-06-05 2021-06-05 Anesthesia Frankie Chowdhury 1.2.840.1 [id number] Methodi 10:16:00 11:41:00 Event Chandler Silverman 66117.1.[address] 3.430.2.7 Hospit a .3.646513 l .8 2021-06-05 2021-06-05 Surgery PatiJuwan 1.2.840.1 [id number] 08711 79689 Methodi 09:30:00 11:05:[address] 3.430.2.7 Hospit a .3.912108 l .8 2021-06-03 2021-06-03 Prep for Anthony, 1.2.840.1 [id number] Methodi 00:00:00 00:00:00 Surgery Forrest 30046.1.[address] 3.430.2.7 Hospit a .3.439581 l .8 2021-06-03 2021-06-03 Telephone Adelita, 1.2.840.1 [id number] 748 [id number] Methodi 00:00:00 00:00:00 Crysandria 32918.1.1 218 s t 3.430.2.7 Hospit a .3.073054 l .8 2021-05-28 2021-05-28 Outpatient Adams_R DMG [place] [id number] 021 [facility] 05:00:00 05:00:00 1208 Medica l Group 2021-05-27 2021-05-27 Patient Tam, 1.2.840.1 [id number] Methodi 00:00:00 00:00:00 Outreach Maria M 18818.1.[address] 3.430.2.7 Hospit a .3.534647 l .8 2021-05-27 2021-05-27 Travel 1.2.840.1 1.2.284.428 3493 [id number] Methodi 00:00:00 00:00:[address] 3.430.2.7 0.2.7.3.698 Ho spita .3.734645 084.8 l .8 2021-05-27 2021-05-27 Orders Ramana, 1.2.840.1 [id number] 2099 [id number] Methodi 00:00:00 00:00:00 Only Anila 42617.1.[address] 3.430.2.7 Hospit a .3.417695 l .8 2021-05-26 2021-05-26 Outpatient Adams_R DMG [facility] [id number] 021 [facility] 03:30:00 03:30:00 1206 Medica l Group 2021-05-26 2021-05-26 Telephone Anthony, 1.2.840.1 [id number] 2099 [id number] Methodi 00:00:00 00:00:[address] 3.430.2.7 Hospit a .3.101836 l .8 2021-05-19 2021-05-25 Juwan Mendez 1.2.840.1 [id number] 2099 [id number] Methodi 06:00:00 15:59:00 Encounter Tom Barber 63187.1.[address] AugustLisMarilu Arvin 3.430.2.7 Hospita .3.895812 l .8 2021-05-21 2021-05-21 Outpatient DMG DMG [id number] 021 [facility] 03:30:00 03:30:00 1201 Medica l Group 2021-05-19 2021-05-19 Anesthesia Adam, 1.2.840.1 [id number] Methodi 18:45:00 20:31:00 Event Sukhjinder 96119.1.[address] Kendall 3.430.2.7 Hospit a .3.057426 l .8 2021-05-19 2021-05-19 Surgery Juwan You 1.2.840.1 [id number] 91 Methodi 18:50:00 19:55:[address] 3.430.2.7 Hospit a .3.958906 l .8 2021-05-19 2021-05-19 Anesthesia Sukhjinder Medina 1.2.840.1 [id number] Methodi 12:00:00 15:14:00 Event Hanane Ledezma 32991.1.[address] 3.430.2.7 Hospit a .3.629505 l .8 2021-05-19 2021-05-19 Surgery Juwan You 1.2.840.1 [id number] Methodi 12:05:00 14:45:[address] 3.430.2.7 Hospit a .3.508745 l .8 2021-05-19 2021-05-19 Travel 1.2.840.1 1.2.982.309 6122 797497 Methodi 00:00:00 00:00:[address] 3.430.2.7 0.2.7.3.698 Ho spita .3.726112 084.8 l .8 2021-05-14 2021-05-14 Telephone Romeljosé luislori 1.2.840.1 [id number] Methodi 00:00:00 00:00:[address] 3.430.2.7 Hospit a .3.989357 l .8 2021-05-14 2021-05-14 Prep for Anthony, 1.2.840.1 [id number] Methodi 00:00:00 00:00:00 Surgery Forrest 49593.1.[address] 3.430.2.7 Hospit a .3.546937 l .8 2021-05-13 2021-05-13 Orders Doctor JOANNA 1.2.840.114 [id number] 92 [facility] 00:00:00 00:00:00 Only Unassigned, MAGDALENO 350.1.13.10 ity of Uncertain [facility] 4.2.7.2.686 Baljinder as 595.3565992 [place] [address] [place] 2021-05-12 2021-05-12 Office Juwan You 1.2.840.1 [id number] 84 Methodi 09:00:00 09:32:[address] 3.430.2.7 Hospit a .3.821270 l .8 2021-05-12 2021-05-12 Outpatient JUWAN YOU [facility] [id number] [place] 00:00:00 00:00:[address] 2021-05-12 2021-05-12 Telephone Anthony, 1.2.840.1 [id number] 2099 [id number] Methodi 00:00:00 00:00:[address] 3.430.2.7 Hospit a .3.509377 l .8 2021-05-12 2021-05-12 Travel 1.2.840.1 1.2.443.443 7557 242660 Methodi 00:00:00 00:00:[address] 3.430.2.7 0.2.7.3.698 Ho spita .3.294732 084.8 l .8 2021-05-08 2021-05-08 Orders Anthony, 1.2.840.1 [id number] 1782 Methodi 00:00:00 00:00:00 Only Forrest 28183.1.[address] 3.430.2.7 Hospit a .3.963535 l .8 2021-05-08 2021-05-08 Telephone Ramana, 1.2.840.1 [id number] 21 [id number] Methodi 00:00:00 00:00:[address] 3.430.2.7 Hospit a .3.002114 l .8 2021-05-05 2021-05-05 Office Juwan You 1.2.840.1 [id number] 60 Methodi 14:00:00 15:41:[address] 3.430.2.7 Hospit a .3.339927 l .8 2021-05-05 2021-05-05 Travel 1.2.840.1 1.2.444.272 7975 627653 Methodi 00:00:00 00:00:[address] 3.430.2.7 0.2.7.3.698 Ho spita .3.331287 084.8 l .8 2021-05-01 2021-05-01 Telephone Joe, 1.2.840.1 [id number] 2099 [id number] Methodi 00:00:00 00:00:[address] [facility] 3.430.2.7 Hosp jo-ann .3.026585 l .8 2021-04-08 2021-04-08 Outpatient R [facility] [id number] Univers 09:00:00 09:00:00 MONA low of [facility] 2021-03-24 2021-03-24 Transition Misha Garcia 1.2.840.114 [id number] Univers 00:00:00 00:00:00 of Care Missy Guzman 350.1.13.10 it y of [place]yne 4.2.7.2.686 [place] l[place]ardo [id number] [address] 2021-03-19 2021-03-21 [facility] Jimena Easton 1.2.840.1 [id number] Univers 08:24:00 23:08:00 Encounter Dias, Eze J 09431.1.1 ity of Obed Gray 3.104.2.7 [place] .3.719575 Medica l .8 [place] 2021-03-21 2021-03-21 Outpatient [facility] [id number] Devoted 08:01:00 08:01:00 1001 Medica l Group 2021-03-19 2021-03-19 Orders Doctor 1.2.840.3 [id number] Univers 00:00:00 00:00:00 Only Unassigned, 42021.1.1 ity of Uncertain 3.104.2.7 [place] .3.430547 Medica l .8 [place] 2021-03-19 2021-03-19 Travel 1.2.840.1 1.2.112.693 [id number] Univers 00:00:00 00:00:00 01384.1.1 350.1.13.10 ity of 3.104.2.7 [place]3.698 [place] .3.690591 084.8 Medica l .8 [place] 2021-01-21 2021-01-29 Inpatient [facility] [id number] Memoria 15:50:00 20:14:[address] 2021-01-21 2021-01-29 Outpatient [facility] [id number] 10:50:00 15:14:00 Monisha 2021-01-21 2021-01-29 Inpatient [facility] [address] [facility] 10:50:00 15:14:00 MONISHA 2021-01-24 2021-01-24 Outpatient [facility] [id number] Devoted 08:00:00 08:00:00 0806 Medica l Group 2021-01-21 2021-01-21 Outpatient [facility] [id number] 10:50:00 10:50:00 Monisha 2021-01-03 2021-01-03 Office DOMINQIUE Diane 1.2.840.114 [id number] 07:44:43 09:30:54 Visit Alexandr ALTMAN 350.1.13.[address] [facility] [id number] 1 2021-01-03 2021-01-03 Office DOMINIQUE Diane 1.2.840.114 [id number] 903 [place] 07:44:43 09:30:54 Visit Alexandr ALTMAN 350.1.13.58 [place] MED[facility] 9.2.7.2.[address] [facility] [facility] [facility] [phone] [id number] 2020-12-26 2020-12-26 [facility] [id number] Univers 10:30:00 10:30:00 SENDIL [facility] 2020-12-24 2020-12-25 Outpatient nullFlavo Digestive [id number] Memoria 15:32:00 04:59:00 r Disease 11 l Center Vin 2020-12-24 2020-12-24 Outpatient Wright, [facility] [id number] 10:32:00 23:59:00 Wong Clark Madden 2020-12-24 2020-12-24 Outpatient WRIGHT, [facility] [address] [facility] 10:32:00 23:59:00 HUI 2020-11-12 2020-11-12 Outpatient R CARLOS [facility] [id number] Univers 09:00:00 09:00:00 JOSE LUIS [facility] 2020-10-27 2020-10-27 [facility] 1.2.840.114 [id number] 00:00:00 00:00:00 (Out) Oz Lehman 350.1.13.10 [place] 4.2.7.2.686 Professio [phone] [address] 2020-10-27 2020-10-27 eKyona [facility] 1.2.840.114 [id number] Univers 00:00:00 00:00:00 (Out) Oz Lehman 350.1.13.10 [facility] [place] [phone] Ak dical [address] 2020-10-24 2020-10-24 Orders Doctor MARSHALL 1.2.840.114 [id number] 00:00:00 00:00:00 Only Unassigned, MAGDALENO 350.1.13.10 [facility] 4.2.7.2.686 [phone] 009 2020-10-24 2020-10-24 Orders Doctor JOANNA 1.2.840.114 [id number] Univers 00:00:00 00:00:00 Only Unassigned, MAGDALENO 350.1.13.10 ity of Uncertain [facility] 4.2.7.2.686 Baljinder as [phone] [address] 2020-09-24 2020-09-24 Refill [facility] 1.2.840.114 [id number] 00:00:00 00:00:00 Jose Luis [place] 350.1.13.10 [place] 4.2.7.2.686 Professio [phone] [address] 2020-09-24 2020-09-24 Refalta [facility] 1.2.840.114 [id number] Univers 00:00:00 00:00:00 Jose Luis [place] 350.1.13.10 i ty [place] [phone] [facility] [address] [facility] 2020-09-09 2020-09-09 Patient [facility] 1.2.840.114 [id number] 00:00:00 00:00:00 Outreach Earl PRIMARY 350.1.13.10 Manuel CARE 4.2.7.2.686 PAVILLION [phone] [facility] 2020-09-09 2020-09-09 Patient [facility] 1.2.840.114 [id number] Univers 00:00:00 00:00:00 Outreach Earl PRIMARY 350.1.13.10 i ty of [facility] [place].2.7.2.[place] [phone] [address] 2020-08-06 2020-08-06 Outpatient R CARLOS [facility] [id number] Univers 14:30:00 14:30:00 JOSE LUIS low [facility] 2020-08-05 2020-08-05 [facility] [id number] Univers 13:30:00 13:30:00 DEJA ity of [facility] 2020-07-23 2020-07-23 [facility] 1.2.840.114 [id number] [facility] 13:39:08 23:59:00 Encounter Deja PRIMARY 350.1.13.10 ity of A CARE [place].2.[place] [phone] Ak dical [address] 2020-07-23 2020-07-23 Office [facility] 1.2.564.378 [id number] 13:31:20 14:37:36 Visit Deja PRIMARY 350.1.13.10 A CARE 4.2.7.2.686 PAVILLION [phone] [facility] 2020-07-23 2020-07-23 Office [facility] [id number] [facility] 13:31:20 14:37:36 Visit Deja PRIMARY 350.1.13.10 ity of [place].2.[place] [phone] Ak dical [address] 2020-07-23 2020-07-23 Outpatient R [facility] [id number] Univers 13:30:00 13:30:00 DEJA ity [facility] 2020-07-09 2020-07-09 Outpatient R [facility] [id number] Univers 09:00:00 09:00:00 ity of [facility] 2020-07-03 2020-07-03 Telephone [facility] 1.2.327.959 [id number] Univers 00:00:00 00:00:00 Oz Lehman 350.1.13.10 [place] [phone] Ak dical nal 059 [facility] 2020-06-27 2020-06-27 Office [facility] 1.2.840.114 [id number] Univers 10:05:43 11:00:00 Visit Oz Lehman 350.1.13.10 [place] of [place].2.[place] [phone] Ak dical nal [address] [place] [address] 2020-06-27 2020-06-27 Office Lamin [facility] 1.2.840.114 [id number] Univers 10:05:43 11:00:00 Visit Oz LEHMAN 350.1.13.10 ity of [facility] 4.2.7.2.[place] [phone] [address] 2020-06-27 2020-06-27 Outpatient R LAMIN [facility] [id number] Univers 09:30:00 11:00:00 SENDIL ity [facility] 2020-06-27 2020-06-27 Outpatient R LAMIN [facility] [id number] Univers 09:30:00 09:30:00 SENDIL ity [facility] 2020-05-28 2020-05-28 Laboratory Pc, Adc Echo Room 1 - [facility] 1 .2.840.114 [id number] Univers 08:01:11 08:48:06 Only Oz Kimble 350.1.13. 10 [place] of [place].2.[place] [phone] [address] 2020-05-28 2020-05-28 Outpatient R [facility] [id number] Univers 08:00:00 08:00:00 ity of [facility] 2020-05-10 2020-05-10 Nurse Visit, [facility] Nurse [facility] 1.2.840.1 [id number] Univers 08:31:07 08:43:46 Visit Oz Kimble 350.1.13. 10 [place] of [place].2.[place] [phone] [address] 2020-05-10 2020-05-10 Outpatient R LAMIN [facility] [id number] Univers 08:30:00 08:30:00 SENDIL [facility] 2020-05-07 2020-05-07 Outpatient R [facility] [id number] Univers 08:00:00 08:00:00 ity of [facility] 2020-05-01 2020-05-01 Office [facility] 1.2.840.114 [id number] Univers 11:02:55 12:04:48 Visit Jose Luis Lehman 350.1.13.10 i ty of [place]2.7.2.[place] [phone] Ak dical nal [address] [facility] 2020-05-01 2020-05-01 [facility] [id number] Univers 10:30:00 10:30:00 [facility] 2020-04-25 2020-04-25 Office [facility] 1.2.840.114 [id number] Univers 10:07:58 10:48:50 Visit Oz Lehman 350.1.13.10 ity [facility] 4.2.7.2.[place] [phone] Ak dical nal 059 [facility] 2020-04-25 2020-04-25 Outpatient [facility] [id number] Univers 10:00:00 10:00:00 SENDIL ity [facility] 2020-04-25 2020-04-25 Orders Doctor JOANNA 1.2.840.114 [id number] Univers 00:00:00 00:00:00 Only Unassigned, MAGDALENO 350.1.13.10 ity of Uncertain [facility] 4.2.7.2.686 Baljinder as [phone] [address] 2020-04-05 2020-04-05 Outpatient [facility] [id number] Univers 09:30:00 09:30:00 SENDIL ity [facility] 2020-04-03 2020-04-03 Commercial Insulator 2, Adc Lab [facility] 1.2.840.114 [id number] Univers 13:13:38 13:28:38 Visit Mona Bhat 350.1.13.10 [place] of [place].2.[place] [phone] Ak dical nal 353 [facility] 2020-04-03 2020-04-03 Outpatient R ADUM, [facility] [id number] Univers 13:00:00 13:00:00 MONA low [facility] 2020-04-02 2020-04-02 Office Adum, [facility] 1.2.840.114 [id number] Univers 09:00:33 09:54:22 Visit Mona Misbah Lehman 350.1.13.10 [place] of [place].2.[place] [phone] Ak dical nal 134 [facility] 2020-04-02 2020-04-02 Outpatient R ADUM, [facility] [id number] Univers 08:30:00 08:30:00 MONA low [facility] 2020-04-02 2020-04-02 Outpatient R ADUM, [facility] [id number] Univers 08:30:00 08:30:00 [facility] 2020-04-02 2020-04-02 Emergency [facility] 1.2.840.114 [id number] Univers 00:24:00 01:09:00 Marlin Lehman 350.1.13.10 i ty [place].2.7.2.[place] [phone] [facility] [address] 2020-04-02 2020-04-02 Orders Doctor JOANNA 1.2.840.114 [id number] Univers 00:00:00 00:00:00 Only Unassigned, MAGDALENO 350.1.13.10 ity of Uncertain [facility] 4.2.7.2.686 Baljinder as [phone] [facility] [address] 2020-03-16 2020-03-16 Telephone [facility] 1.2.840.114 [id number] Univers 00:00:00 00:00:00 Yury Lehman 350.1.13.10 i ty [place]2.[place].2.[place] [phone] Ak dical nal 134 [facility] 2020-03-08 2020-03-08 Out[facility] [id number] Univers 11:00:00 11:00:00 LIMA currie [facility] 2020-03-07 2020-03-07 Telephone [facility] 1.2.840.114 [id number] Univers 00:00:00 00:00:00 Lima Levi 350.1.13.10 [place] of [place].2.[place] [phone] Ak dical nal 188 [facility] 2020-02-06 2020-02-06 Outpatient [facility]in [facility] [id number] Univers 09:30:00 09:30:00 BRANDON [facility] 2020-02-06 2020-02-06 Office [facility] 1.2.840.114 [id number] Univers 08:57:01 09:24:05 Visit Brandon Lehman 350.1.13.10 i ty Jo[place]quin [place]2.[place].2.[place] [phone] Ak dical nal 044 [facility] 2020-01-25 2020-01-31 Inpatient 1 eRi Waldron [facility] GPY [id number] 21:31:00 18:15:00 Rei Waldron [facility] 2020-01-24 2020-01-24 Outpatient Eduin BROOKS [facility] [id number] Univers 09:45:00 09:45:00 HUMAIR itcaron [facility] 2020-01-23 2020-01-23 Outpatient [facility]in [facility] [id number] Univers 10:30:00 10:30:00 RACHEL ity [facility] 2019-12-18 2019-12-18 Outpatient Eduin RUST [facility] [id number] Univers 08:00:00 08:00:00 YISSEL ity [facility] 2019-12-04 2019-12-04 Outpatient Eudin JOHN [facility] [id number] Univers 14:15:00 14:15:00 RBANDON caron [facility] 2019-11-06 2019-11-06 TelemedicMAGDY Ayala 1.2.840.114 [id number] Univers 07:49:37 08:46:52 ne Visit Yissel Parr 350.1.13.10 ity of [facility] 4.2.7.2.686 Baljinder as BANK [phone] [facility] BLDG. [address] 2019-11-06 2019-11-06 Outpatient R BARRERA [facility] [id number] Univers 08:00:00 08:00:00 YISSEL ity [facility] 2019-10-01 2019-10-01 Emergency [facility] 1.2.936.184 [id number] Univers 15:47:29 19:01:00 Stacie Lehman 350.1.13.10 i ty [facility] [place].2.7.2.[place] [phone] [facility] [address] 2019-09-05 2019-09-05 Outpatient Eduin JOHN [facility] [id number] Univers 13:30:00 13:30:00 [facility] 2019-08-28 2019-08-28 Outpatient R ZEKE RUVALCABA [facility] [id number] Univers 15:00:00 15:00:00 ity [facility] 2019-02-27 2019-02-27 Telephone [facility] 1.2.840.114 [id number] Univers 00:00:00 00:00:00 Adán T SPECIALTY 350.1.13.10 ity of CARE [place]2.[place] AT [phone] [facility] 188 [facility] 2019-02-25 2019-02-25 Telephone [facility] 1.2.840.114 [id number] Univers 00:00:00 00:00:00 Adán T SPECIALTY 350.1.13.10 ity of CARE [place]2.[place].2.[place] AT [phone] Ak dical VICTORY 205 [facility] 2019-02-22 2019-02-22 [facility] Oz Kimble 1.2.8 40.114 [id number] Univers 09:19:22 23:59:00 Encounter Aimee Frederick 350.1.13.10 ity of [facility] 4.2.7.2.686 Baljinder as [phone] [facility] [address] 2019-02-22 2019-02-22 Hospital Oz Kimble 1.2.8 40.114 [id number] Univers 08:00:00 09:18:00 Encounter Outpt-Josy, Aimee [place] 350.1.13.10 ity of Hospital 4.2.7.2.686 Baljinder as [phone] [facility] [address] 2019-02-17 2019-02-17 Office Germán [facility] 1.2.840.114 [id number] Univers 13:09:08 13:54:39 Visit Gary gray [facility] 350.1.13.10 ity of [place].2.[place] [phone] [facility] [address] 2019-02-17 2019-02-17 Orders Doctor JOANNA 1.2.840.114 [id number] Univers 00:00:00 00:00:00 Only Unassigned, MAGDALENO 350.1.13.10 ity of Uncertain HOSPITAL 4.2.7.2.686 Baljinder as [phone] [facility] [address] 2019-01-25 2019-01-25 Telephone Traci Kimble 1.2.972.014 [id number] Univers 00:00:00 00:00:00 Oz [place] 350.1.13.10 ity of Hospital 4.2.7.2.686 Baljinder as [phone] [address] 2019-01-25 2019-01-25 Telephone Traci Kimble 1.2.179.536 [id number] Univers 00:00:00 00:00:00 Oz [place] 350.1.13.10 ity of Hospital 4.2.7.2.686 Baljinder as [phone] [place] [address] Branch 2019-01-20 2019-01-20 Office Lamin [facility] 1.2.840.114 [id number] Univers 08:55:54 09:56:43 Visit Oz Lehman 350.1.13.10 ity of [place].2.[place] Profess [phone] Ak dical nal 0[address] [facility] 2019-01-14 2019-01-15 Emergency Hunderup, TRAUMA 1.2.840.114 [id number] Univers 18:20:35 00:24:00 [facility] 350.1.13.10 it y [place].2.[place] [phone] [address] 2019-01-13 2019-01-13 Office Digna [facility] 1.2.840.114 [id number] Univers 08:10:44 09:19:41 Visit Lima Lehman 350.1.13.10 ity of [place] 4.2.7.2.[place] essio [phone] Ak dical nal [address] [facility] 2018-05-24 2018-05-24 Outpatient SARAHY DORADO, SLEClaudia [facility] [id number] [facility] 00:00:00 00:00:00 LY 2016-07-24 2016-07-30 [facility] [id number] Memoria 02:04:00 16:20:[address] 2016-07-23 2016-07-30 Outpatient [facility]elin [facility] [id number] 20:04:00 10:20:00 Lnua 10 2016-06-10 2016-06-15 [facility] [id number] Memoria 16:02:00 18:23:[address] 2016-06-10 2016-06-15 Outpatient Franck, [facility] [id number] 10:02:00 12:23:00 Joe Yan 09 2014-06-26 2014-06-26 nullFlavo [facility] [id number] Memoria 05:25:00 15:14:00 Emergency r [address] 2014-06-25 2014-06-26 Outpatient Ostermayer, 2.16.840. 2.16.840. 1. [id number] 23:25:00 09:14:00 Atul 1.379416. [id number] 08 Cem 3.615.0.1 5.0.190 40 5190-10-25 2013-04-15 Outpatient 2.16.840. 2.16.840.1. 4 [id number] Memoria 21:04:00 01:45:00 1.920250. [id number] 07 l 3.615.0.1 5.0.101 Jake n [facility] 2013-04-14 2013-04-15 Outpatient 2.16.840. 2.16.840.1. 4 [id number] Memoria 21:04:00 01:45:00 1.307639. [id number] 07 l 3.615.0.1 5.0.101 Jake n [facility] 2013-04-14 2013-04-15 Outpatient 2.16.840. 2.16.840.1. 4 [id number] Memoria 21:04:00 01:45:00 1.369075. [id number] 07 l 3.615.0.1 5.0.101 Jake n [facility] 2013-04-14 2013-04-15 Outpatient 2.16.840. 2.16.840.1. 4 [id number] Memoria 21:04:00 01:45:00 1.489965. [id number] 07 l 3.615.0.1 5.0.101 Jake n [facility] 2013-04-14 2013-04-15 Outpatient 2.16.840. 2.16.840.1. 4 [id number] Memoria 21:04:00 01:45:00 1.082686. [id number] 07 l 3.615.0.1 5.0.101 Jake n [facility] 2013-04-14 2013-04-15 Emergency nullFlavo [id number] Memoria 21:04:00 01:45:00 r [facility] 07 misbah Vin 2012-03-14 2012-03-14 Emergency nullFlavo [id number] Memoria 16:32:00 22:39:00 r [facility] 04 misbah Banuelos 2011-11-28 2011-11-30 OU nullFlavo [facility] [id number] Memoria 12:16:00 20:40:00 r [facility] 03 misbah [place] [facility] 2011-09-18 2011-09-18 Emergency nullFlavo [facility] [id number] Memoria 08:23:00 13:34:00 r Medical 02 [facility] 2011-09-01 2011-09-09 Inpatient nullFlavo [facility] [id number] Memoria 01:40:00 15:00:00 r Medical 01 [facility] 2011-08-19 2011-08-23 Inpatient nullFlavo [facility] [id number] Memoria 14:25:00 15:28:00 r Medical 00 [facility] Results Test Description Test Time [...] Thigh: in fected wound right [facility]2022-02-01 18:13:19 Test Item Value Reference Range Interpretation Comments AFB culture No growth Specimen isolate (test after 6 weeks InformationSp ecimen code = 543-9) of Source: [place] geSpecimen incubation. Site: Thigh: in fected wound right [facility] [id number] 18:13:19 Test Item Value Reference Range Interpretation Comments AFB culture No growth Specimen isolate (test after 6 weeks InformationSp ecimen code = 543-9) of Source: [place] geSpecimen incubation. Site: Thigh: in fected wound right [facility] [id number] 18:13:19 Test Item Value Reference Range Interpretation Comments AFB culture No growth Specimen isolate (test after 6 weeks InformationSp ecimen code = 543-9) of Source: [place] geSpecimen incubation. Site: Thigh: in fected wound right [facility] [id number] 18:13:19 Test Item Value Reference Range Interpretation Comments AFB culture No growth Specimen isolate (test after 6 weeks InformationSp ecimen code = 543-9) of Source: [place] geSpecimen incubation. Site: Thigh: in fected wound right [facility] [id number] 18:13:19 Test Item Value Reference Range Interpretation Comments AFB culture No growth Specimen isolate (test after 6 weeks InformationSp ecimen code = 543-9) of Source: [place] geSpecimen incubation. Site: Thigh: in fected wound right [facility] [id number] 18:13:19 Test Item Value Reference Range Interpretation Comments AFB culture No growth Specimen isolate (test after 6 weeks InformationSp ecimen code = 543-9) of Source: [place] geSpecimen incubation. Site: Thigh: in fected wound right [facility] [id number] 18:13:19 Test Item Value Reference Range Interpretation Comments AFB culture No growth Specimen isolate (test after 6 weeks InformationSp ecimen code = 543-9) of Source: [place] geSpecimen incubation. Site: Thigh: in fected wound right [facility]2022-02-01 18:13:19 Test Item Value Reference Range Interpretation Comments AFB culture No growth Specimen isolate (test after 6 weeks InformationSp ecimen code = 543-9) of Source: [place] geSpecimen incubation. Site: Thigh: in fected wound right [facility]2022-02-01 18:13:19 Test Item Value Reference Range Interpretation Comments AFB culture No growth Specimen isolate (test after 6 weeks InformationSp ecimen code = 543-9) of Source: [place] geSpecimen incubation. Site: Thigh: in fected wound right [facility] [id number] 18:15:13 Test Item Value Reference Range Interpretation Comments Fungus culture No growth Specimen isolate (test after 4 weeks InformationSp ecimen code = 1441) of Source: TissueS pecimen incubation. Site: Thigh [facility]2022-01-25 18:15:13 Test Item Value Reference Range Interpretation Comments Fungus culture No growth Specimen isolate (test after 4 weeks InformationSp ecimen code = 1441) of Source: TissueS pecimen incubation. Site: Thigh [facility]2022-01-25 18:15:13 Test Item Value Reference Range Interpretation Comments Fungus culture No growth Specimen isolate (test after 4 weeks InformationSp ecimen code = 1441) of Source: TissueS pecimen incubation. Site: Thigh [facility]2022-01-25 18:15:13 Test Item Value Reference Range Interpretation Comments Fungus culture No growth Specimen isolate (test after 4 weeks InformationSp ecimen code = 1441) of Source: TissueS pecimen incubation. Site: Thigh [facility]2022-01-25 18:15:13 Test Item Value Reference Range Interpretation Comments Fungus culture No growth Specimen isolate (test after 4 weeks InformationSp ecimen code = 1441) of Source: TissueS pecimen incubation. Site: Thigh [facility]2022-01-25 18:15:13 Test Item Value Reference Range Interpretation Comments Fungus culture No growth Specimen isolate (test after 4 weeks InformationSp ecimen code = 1441) of Source: TissueS pecimen incubation. Site: [facility]2022-01-25 18:15:13 Test Item Value Reference Range Interpretation Comments Fungus culture No growth Specimen isolate (test after 4 weeks InformationSp ecimen code = 1441) of Source: TissueS pecimen incubation. Site: Thigh [facility]2022-01-25 18:15:13 Test Item Value Reference Range Interpretation Comments Fungus culture No growth Specimen isolate (test after 4 weeks InformationSp ecimen code = 1441) of Source: TissueS pecimen incubation. Site: [facility]2022-01-25 18:15:13 Test Item Value Reference Range Interpretation Comments Fungus culture No growth Specimen isolate (test after 4 weeks InformationSp ecimen code = 1441) of Source: TissueS pecimen incubation. Site: Thigh [facility]2022-01-25 18:15:13 Test Item Value Reference Range Interpretation Comments Fungus culture No growth Specimen isolate (test after 4 weeks InformationSp ecimen code = 1441) of Source: TissueS pecimen incubation. Site: [facility]2022-01-25 18:15:13 Test Item Value Reference Range Interpretation Comments Fungus culture No growth Specimen isolate (test after 4 weeks InformationSp ecimen code = 1441) of Source: TissueS pecimen incubation. Site: Thigh [place] [id number] 18:15:13 Test Item Value Reference Range Interpretation Comments Fungus culture No growth Specimen isolate (test after 4 weeks InformationSp ecimen code = 1441) of Source: TissueS pecimen incubation. Site: [place] 174252-01-25 18:15:13 Test Item Value Reference Range Interpretation Comments Fungus culture No growth Specimen isolate (test after 4 weeks InformationSp ecimen code = 1441) of Source: TissueS pecimen incubation. Site: [place] 934892-01-01 14:31:13 Test Item Value Reference Range Interpretation Comments Anaerobic No anaerobic Specimen culture isolate organisms InformationS pecimen (test code = isolated. Source: TissueS pecimen 552) Site: [place] [address]-01-01 14:31:13 Test Item Value Reference Range Interpretation Comments Anaerobic No anaerobic Specimen culture isolate organisms InformationS pecimen (test code = isolated. Source: TissueS pecimen 552) Site: [place] 934892-01-01 14:31:13 Test Item Value Reference Range Interpretation Comments Anaerobic No anaerobic Specimen culture isolate organisms InformationS pecimen (test code = isolated. Source: TissueS pecimen 552) Site: [place] 934892-01-01 14:31:13 Test Item Value Reference Range Interpretation Comments Anaerobic No anaerobic Specimen culture isolate organisms InformationS pecimen (test code = isolated. Source: TissueS pecimen 552) Site: [place] 934892-01-01 14:31:13 Test Item Value Reference Range Interpretation Comments Anaerobic No anaerobic Specimen culture isolate organisms InformationS pecimen (test code = isolated. Source: TissueS pecimen 552) Site: [place] 934892-01-01 14:31:13 Test Item Value Reference Range Interpretation Comments Anaerobic No anaerobic Specimen culture isolate organisms InformationS pecimen (test code = isolated. Source: TissueS pecimen 552) Site: [place] [address]-01-01 14:31:13 Test Item Value Reference Range Interpretation Comments Anaerobic No anaerobic Specimen culture isolate organisms InformationS pecimen (test code = isolated. Source: TissueS pecimen 552) Site: [facility] [id number] 14:31:13 Test Item Value Reference Range Interpretation Comments Anaerobic No anaerobic Specimen culture isolate organisms InformationS pecimen (test code = isolated. Source: TissueS pecimen 552) Site: [facility]2022-01-01 14:31:13 Test Item Value Reference Range Interpretation Comments Anaerobic No anaerobic Specimen culture isolate organisms InformationS pecimen (test code = isolated. Source: TissueS pecimen 552) Site: [facility]2022-01-01 14:31:13 Test Item Value Reference Range Interpretation Comments Anaerobic No anaerobic Specimen culture isolate organisms InformationS pecimen (test code = isolated. Source: TissueS pecimen 552) Site: [facility]2022-01-01 14:31:13 Test Item Value Reference Range Interpretation Comments Anaerobic No anaerobic Specimen culture isolate organisms InformationS pecimen (test code = isolated. Source: TissueS pecimen 552) Site: [facility]2022-01-01 14:31:13 Test Item Value Reference Range Interpretation Comments Anaerobic No anaerobic Specimen culture isolate organisms InformationS pecimen (test code = isolated. Source: TissueS pecimen 552) Site: [facility]2022-01-01 14:31:13 Test Item Value Reference Range Interpretation Comments Anaerobic No anaerobic Specimen culture isolate organisms InformationS pecimen (test code = isolated. Source: TissueS pecimen 552) Site: [facility] [id number] 16:51:58 Test Item Value Reference Range Interpretation Comments Gram stain No WBC's or Specimen isolate (test organisms seen. Information Specimen code = 1469) Source: TissueS pecimen [facility]: [facility] [id number] 16:51:58 Test Item Value Reference Range Interpretation Comments Aerobic culture No growth Specimen isolate (test after 3 days. InformationSp ecimen code = 498) Source: TissueS pecimen [facility] [id number] 16:51:58 Test Item Value Reference Range Interpretation Comments Fungus smear No fungi Specimen (test code = observed. InformationSpec imen Source: 1443) TissueSpecimen Site: [facility] [id number] 16:51:58 Test Item Value Reference Range Interpretation Comments Gram stain No WBC's or Specimen isolate (test organisms seen. Information Specimen code = 1469) Source: [facility] [id number] 16:51:58 Test Item Value Reference Range Interpretation Comments Aerobic culture No growth Specimen isolate (test after 3 days. InformationSp ecimen code = 498) Source: [facility] [id number] 16:51:58 Test Item Value Reference Range Interpretation Comments Fungus smear No fungi Specimen (test code = observed. InformationSpec imen Source: 1443) TissueSpecime Site: [facility] [id number] 16:51:58 Test Item Value Reference Range Interpretation Comments Gram stain No WBC's or Specimen isolate (test organisms seen. Information Specimen code = 1469) Source: [facility] [id number] 16:51:58 Test Item Value Reference Range Interpretation Comments Aerobic culture No growth Specimen isolate (test after 3 days. InformationSp ecimen code = 498) Source: [facility] [id number] 16:51:58 Test Item Value Reference Range Interpretation Comments Fungus smear No fungi Specimen (test code = observed. InformationSpec imen Source: 1443) [facility] Site: [facility] [id number] 16:51:58 Test Item Value Reference Range Interpretation Comments Gram stain No WBC's or Specimen isolate (test organisms seen. Information Specimen code = 1469) Source: [facility] [id number] 16:51:58 Test Item Value Reference Range Interpretation Comments Aerobic culture No growth Specimen isolate (test after 3 days. InformationSp ecimen code = 498) Source: [facility] [id number] 16:51:58 Test Item Value Reference Range Interpretation Comments Fungus smear No fungi Specimen (test code = observed. InformationSpec imen Source: 1443) TissueSpecime Site: [facility] [id number] 16:51:58 Test Item Value Reference Range Interpretation Comments Gram stain No WBC's or Specimen isolate (test organisms seen. Information Specimen code = 1469) Source: [facility] [id number] 16:51:58 Test Item Value Reference Range Interpretation Comments Aerobic culture No growth Specimen isolate (test after 3 days. InformationSp ecimen code = 498) Source: [facility] [id number] 16:51:58 Test Item Value Reference Range Interpretation Comments Fungus smear No fungi Specimen (test code = observed. InformationSpec imen Source: 1443) TissueSpecime Site: [facility] [id number] 16:51:58 Test Item Value Reference Range Interpretation Comments Gram stain No WBC's or Specimen isolate (test organisms seen. Information Specimen code = 1469) Source: [facility] [id number] 16:51:58 Test Item Value Reference Range Interpretation Comments Aerobic culture No growth Specimen isolate (test after 3 days. InformationSp ecimen code = 498) Source: [facility] [id number] 16:51:58 Test Item Value Reference Range Interpretation Comments Fungus smear No fungi Specimen (test code = observed. InformationSpec imen Source: 1443) [facility]2021-12-31 16:51:58 Test Item Value Reference Range Interpretation Comments Gram stain No WBC's or Specimen isolate (test organisms seen. Information Specimen code = 1469) Source: [facility] [id number] 16:51:58 Test Item Value Reference Range Interpretation Comments Aerobic culture No growth Specimen isolate (test after 3 days. InformationSp ecimen code = 498) Source: [facility] [id number] 16:51:58 Test Item Value Reference Range Interpretation Comments Fungus smear No fungi Specimen (test code = observed. InformationSpec imen Source: 1443) TissueSpecime Site: [facility] [id number] 16:51:58 Test Item Value Reference Range Interpretation Comments Gram stain No WBC's or Specimen isolate (test organisms seen. Information Specimen code = 1469) Source: [facility] [id number] 16:51:58 Test Item Value Reference Range Interpretation Comments Aerobic culture No growth Specimen isolate (test after 3 days. InformationSp ecimen code = 498) Source: [facility] [id number] 16:51:58 Test Item Value Reference Range Interpretation Comments Fungus smear No fungi Specimen (test code = observed. InformationSpec imen Source: 1443) TissueSpecimen Site: [facility] [id number] 16:51:58 Test Item Value Reference Range Interpretation Comments Gram stain No WBC's or Specimen isolate (test organisms seen. Information Specimen code = 1469) Source: [facility] Site: [facility] [id number] 16:51:58 Test Item Value Reference Range Interpretation Comments Aerobic culture No growth Specimen isolate (test after 3 days. InformationSp ecimen code = 498) Source: [facility] [id number] 16:51:58 Test Item Value Reference Range Interpretation Comments Fungus smear No fungi Specimen (test code = observed. InformationSpec imen Source: 1443) [facility] Site: [facility] [id number] 16:51:58 Test Item Value Reference Range Interpretation Comments Gram stain No WBC's or Specimen isolate (test organisms seen. Information Specimen code = 1469) Source: [facility] [id number] 16:51:58 Test Item Value Reference Range Interpretation Comments Aerobic culture No growth Specimen isolate (test after 3 days. InformationSp ecimen code = 498) Source: [facility] gathm0776-19-02 16:51:58 Test Item Value Reference Range Interpretation Comments Fungus smear No fungi Specimen (test code = observed. InformationSpec imen Source: 1443) [facility] Site: [facility] [id number] 16:51:58 Test Item Value Reference Range Interpretation Comments Gram stain No WBC's or Specimen isolate (test organisms seen. Information Specimen code = 1469) Source: [facility] [id number] 16:51:58 Test Item Value Reference Range Interpretation Comments Aerobic culture No growth Specimen isolate (test after 3 days. InformationSp ecimen code = 498) Source: [facility] [id number] 16:51:58 Test Item Value Reference Range Interpretation Comments Fungus smear No fungi Specimen (test code = observed. InformationSpec imen Source: 1443) TissueSpecime Site: [facility] [id number] 16:51:58 Test Item Value Reference Range Interpretation Comments Gram stain No WBC's or Specimen isolate (test organisms seen. Information Specimen code = 1469) Source: [facility] Site: [facility] [id number] 16:51:58 Test Item Value Reference Range Interpretation Comments Aerobic culture No growth Specimen isolate (test after 3 days. InformationSp ecimen code = 498) Source: [facility] Site: [facility] [id number] 16:51:58 Test Item Value Reference Range Interpretation Comments Fungus smear No fungi Specimen (test code = observed. InformationSpec imen Source: 1443) [facility] [id number] 16:51:58 Test Item Value Reference Range Interpretation Comments Gram stain No WBC's or Specimen isolate (test organisms seen. Information Specimen code = 1469) Source: [facility] ihfkdlu3715-94-83 16:51:58 Test Item Value Reference Range Interpretation Comments Aerobic culture No growth Specimen isolate (test after 3 days. InformationSp ecimen code = 498) Source: [facility] mgoak8983-39-32 16:51:58 Test Item Value Reference Range Interpretation Comments Fungus smear No fungi Specimen (test code = observed. InformationSpec imen Source: 1443) [facility] Site: [facility] aobzgjm6086-86-97 17:00:57 Test Item Value Reference Range Interpretation Comments POC glucose (test code 79 mg/dL 65-99 Opera tor Name: Eboni = [id number]) AmiDevice ID: [id number] [facility] [id number] 17:00:57 Test Item Value Reference Range Interpretation Comments POC glucose (test code 79 mg/dL 65-99 Opera tor Name: Eboni = 82923-4) AmiDevice ID: [id number] [facility]2021-12-29 17:00:57 Test Item Value Reference Range Interpretation Comments POC glucose (test code 79 mg/dL 65-99 Opera tor Name: Eboni = 86478-7) AmiDevice ID: [id number] [facility]2021-12-29 17:00:57 Test Item Value Reference Range Interpretation Comments POC glucose (test code 79 mg/dL 65-99 Opera tor Name: Eboni = 38442-6) AmiDevice ID: [id number] [facility]2021-12-29 17:00:57 Test Item Value Reference Range Interpretation Comments POC glucose (test code 79 mg/dL 65-99 Opera tor Name: Eboni = 16892-0) AmiDevice ID: [id number] [facility]2021-12-29 17:00:57 Test Item Value Reference Range Interpretation Comments POC glucose (test code 79 mg/dL 65-99 Opera tor Name: Eboni = 28029-8) AmiDevice ID: [id number] [facility]2021-12-29 17:00:57 Test Item Value Reference Range Interpretation Comments POC glucose (test code 79 mg/dL 65-99 Opera tor Name: Eboni = 96079-7) AmiDevice ID: [id number] [facility]2021-12-29 17:00:57 Test Item Value Reference Range Interpretation Comments POC glucose (test code 79 mg/dL 65-99 Opera tor Name: Eboni = 06718-4) AmiDevice ID: [id number] [facility]2021-12-29 17:00:57 Test Item Value Reference Range Interpretation Comments POC glucose (test code 79 mg/dL 65-99 Opera tor Name: Eboni = 20739-3) AmiDevice ID: [id number] [facility]2021-12-29 17:00:57 Test Item Value Reference Range Interpretation Comments POC glucose (test code 79 mg/dL 65-99 Opera tor Name: Eboni = 92830-8) AmiDevice ID: [id number] [facility] [id number] 17:00:57 Test Item Value Reference Range Interpretation Comments POC glucose (test code 79 mg/dL 65-99 Opera landa Name: Eboni = 73400-5) AmiDevice ID: [id number] [facility] [id number] 17:00:57 Test Item Value Reference Range Interpretation Comments POC glucose (test code 79 mg/dL 65-99 tor Name: Eboni = 72899-4) AmiDevice ID: [id number] [facility] [id number] 17:00:57 Test Item Value Reference Range Interpretation Comments POC glucose (test code 79 mg/dL 65-99 Opera landa Name: Eboni = 58446-5) AmiDevice ID: [id number] [facility] , [id number] 20:46:00 Test Item Value Reference Range Interpretation Comments test urine, POC (test Negative code = 1137526) Internal QC (test code = 257) QC acceptable [facility] , [id number] 20:46:00 Test Item Value Reference Range Interpretation Comments test urine, POC (test Negative code = 5964367) Internal QC (test code = 257) QC acceptable [facility] , [id number] 20:46:00 Test Item Value Reference Range Interpretation Comments test urine, POC (test Negative code = 7349579) Internal QC (test code = 257) QC acceptable [facility] , [id number] 20:46:00 Test Item Value Reference Range Interpretation Comments test urine, POC (test Negative code = 5164761) Internal QC (test code = 257) QC acceptable [facility] , [id number] 20:46:00 Test Item Value Reference Range Interpretation Comments test urine, POC (test Negative code = 1290181) Internal QC (test code = 257) QC acceptable [facility] , [id number] 20:46:00 Test Item Value Reference Range Interpretation Comments test urine, POC (test Negative code = 7651284) Internal QC (test code = 257) QC acceptable [facility] , [id number] 20:46:00 Test Item Value Reference Range Interpretation Comments test urine, POC (test Negative code = 3858363) Internal QC (test code = 257) QC acceptable [facility] , [id number] 20:46:00 Test Item Value Reference Range Interpretation Comments test urine, POC (test Negative code = 9310053) Internal QC (test code = 257) QC acceptable [facility] , [id number] 20:46:00 Test Item Value Reference Range Interpretation Comments test urine, POC (test Negative code = 4864444) Internal QC (test code = 257) QC acceptable [facility] , [id number] 20:46:00 Test Item Value Reference Range Interpretation Comments test urine, POC (test Negative code = 0200282) Internal QC (test code = 257) QC acceptable [facility] , [id number] 20:46:00 Test Item Value Reference Range Interpretation Comments test urine, POC (test Negative code = 6742905) Internal QC (test code = 257) QC acceptable [facility] , [id number] 20:46:00 Test Item Value Reference Range Interpretation Comments test urine, POC (test Negative code = 4782853) Internal QC (test code = 257) QC acceptable [facility] , [id number] 20:46:00 Test Item Value Reference Range Interpretation Comments test urine, POC (test Negative code = 3384369) Internal QC (test code = 257) QC acceptable [facility] 12 jboj2119-99-00 17:27:33 Test Item Value Reference Range Interpretation Comments Ventricular rate (test code = 253) Atrial rate (test code = 255) WI interval (test code = 266) QRSD interval [...] of 04-JUN-2021 18:19,-No significant change was found- [address]2021-12-27 17:27:33 Test Item Value Reference Range Interpretation Comments Ventricular rate (test code = 253) Atrial rate (test code = 255) WI interval (test code = 266) QRSD interval [...] of 04-JUN-2021 18:19,-No significant change was found- [address]2021-12-27 17:27:33 Test Item Value Reference Range Interpretation Comments Ventricular rate (test code = 253) Atrial rate (test code = 255) WI interval (test code = 266) QRSD interval [...] of 04-JUN-2021 18:19,-No significant change was found- [address]2021-12-27 17:27:33 Test Item Value Reference Range Interpretation Comments Ventricular rate (test code = 253) Atrial rate (test code = 255) WI interval (test code = 266) QRSD interval [...] of 04-JUN-2021 18:19,-No significant change was found- [address]2021-12-27 17:27:33 Test Item Value Reference Range Interpretation Comments Ventricular rate (test code = 253) Atrial rate (test code = 255) WI interval (test code = 266) QRSD interval [...] of 04-JUN-2021 18:19,-No significant change was found- [address]2021-12-27 17:27:33 Test Item Value Reference Range Interpretation Comments Ventricular rate (test code = 253) Atrial rate (test code = 255) WI interval (test code = 266) QRSD interval [...] of 04-JUN-2021 18:19,-No significant change was found- [address]2021-12-27 17:27:33 Test Item Value Reference Range Interpretation Comments Ventricular rate (test code = 253) Atrial rate (test code = 255) WI interval (test code = 266) QRSD interval [...] of 04-JUN-2021 18:19,-No significant change was found- [address]2021-12-27 17:27:33 Test Item Value Reference Range Interpretation Comments Ventricular rate (test code = 253) Atrial rate (test code = 255) WI interval (test code = 266) QRSD interval [...] of 04-JUN-2021 18:19,-No significant change was found- [address]2021-12-27 17:27:33 Test Item Value Reference Range Interpretation Comments Ventricular rate (test code = 253) Atrial rate (test code = 255) WI interval (test code = 266) QRSD interval [...] of 04-JUN-2021 18:19,-No significant change was found- [address]2021-12-27 17:27:33 Test Item Value Reference Range Interpretation Comments Ventricular rate (test code = 253) Atrial rate (test code = 255) WI interval (test code = 266) QRSD interval [...] of 04-JUN-2021 18:19,-No significant change was found- [address]2021-12-27 17:27:33 Test Item Value Reference Range Interpretation Comments Ventricular rate (test code = 253) Atrial rate (test code = 255) WI interval (test code = 266) QRSD interval [...] of 04-JUN-2021 18:19,-No significant change was found- [address]2021-12-27 17:27:33 Test Item Value Reference Range Interpretation Comments Ventricular rate (test code = 253) Atrial rate (test code = 255) WI interval (test code = 266) QRSD interval [...] of 04-JUN-2021 18:19,-No significant change was found- [address]2021-12-27 17:27:33 Test Item Value Reference Range Interpretation Comments Ventricular rate (test code = 253) Atrial rate (test code = 255) WI interval (test code = 266) QRSD interval [...] of 04-JUN-2021 18:19,-No significant change was found- [facility] and [id number] 11:06:00 Test Item Value Reference Range Interpretation Comments ABO grouping (test code = 883-9) B Rh type (test code = 87324-0) POS Antibody screen (gel) (test code = NEG 890-4) [facility] and [id number] 11:06:00 Test Item Value Reference Range Interpretation Comments ABO grouping (test code = 883-9) B Rh type (test code = 22432-0) POS Antibody screen (gel) (test code = NEG 890-4) [facility] and [id number] 11:06:00 Test Item Value Reference Range Interpretation Comments ABO grouping (test code = 883-9) B Rh type (test code = 68862-0) POS Antibody screen (gel) (test code = NEG 890-4) [facility] and [id number] 11:06:00 Test Item Value Reference Range Interpretation Comments ABO grouping (test code = 883-9) B Rh type (test code = 17430-5) POS Antibody screen (gel) (test code = NEG 890-4) [facility] and [id number] 11:06:00 Test Item Value Reference Range Interpretation Comments ABO grouping (test code = 883-9) B Rh type (test code = 27324-9) POS Antibody screen (gel) (test code = NEG 890-4) [facility] and [id number] 11:06:00 Test Item Value Reference Range Interpretation Comments ABO grouping (test code = 883-9) B Rh type (test code = 34714-1) POS Antibody screen (gel) (test code = NEG 890-4) [facility] and [id number] 11:06:00 Test Item Value Reference Range Interpretation Comments ABO grouping (test code = 883-9) B Rh type (test code = 69061-7) POS Antibody screen (gel) (test code = NEG 890-4) [facility] and [id number] 11:06:00 Test Item Value Reference Range Interpretation Comments ABO grouping (test code = 883-9) B Rh type (test code = 74061-7) POS Antibody screen (gel) (test code = NEG 890-4) [facility] [id number] 11:06:00 Test Item Value Reference Range Interpretation Comments ABO grouping (test code = 883-9) B Rh type (test code = 58828-0) POS Antibody screen (gel) (test code = NEG 890-4) [facility] [id number] 11:06:00 Test Item Value Reference Range Interpretation Comments ABO grouping (test code = 883-9) B Rh type (test code = 73738-3) POS Antibody screen (gel) (test code = NEG 890-4) [facility] umnnib3305-98-67 11:06:00 Test Item Value Reference Range Interpretation Comments ABO grouping (test code = 883-9) B Rh type (test code = 57914-1) POS Antibody screen (gel) (test code = NEG 890-4) [facility] [id number] 11:06:00 Test Item Value Reference Range Interpretation Comments ABO grouping (test code = 883-9) B Rh type (test code = 11404-6) POS Antibody screen (gel) (test code = NEG 890-4) [facility] pstfkh7859-34-25 11:06:00 Test Item Value Reference Range Interpretation Comments ABO grouping (test code = 883-9) B Rh type (test code = 17847-8) POS Antibody screen (gel) (test code = NEG 890-4) [facility] [Presence] in Respiratory specimen by EMANUEL with probe mjwkwpvmq4125-76-54 19:37:44 Test Item Value Reference Range Interpretation Comments SARS-CoV-2 (COVID-19) RNA Not detected Not-Detected [Presence] in Respiratory specimen by EMANUEL with probe detection (test code = 20441-7) 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 InformationSp ecimen code = 63996-3) Source: Tiss ueSpecimen Site: Thigh: in fected right thigh wou [facility]2021-12-24 20:18:46 Test Item Value Reference Range Interpretation Comments Tissue culture No growth Specimen isolate (test after 3 days. InformationSp ecimen code = 39428-6) Source: Tiss ueSpecimen Site: Thigh: in fected right thigh wou [facility]2021-12-24 20:18:46 Test Item Value Reference Range Interpretation Comments Tissue culture No growth Specimen isolate (test after 3 days. InformationSp ecimen code = 05427-5) Source: Tiss ueSpecimen Site: Thigh: in fected right thigh wou [facility]2021-12-24 20:18:46 Test Item Value Reference Range Interpretation Comments Tissue culture No growth Specimen isolate (test after 3 days. InformationSp ecimen code = 76481-3) Source: Tiss ueSpecimen Site: Thigh: in fected right thigh [facility]2021-12-24 20:18:46 Test Item Value Reference Range Interpretation Comments Tissue culture No growth Specimen isolate (test after 3 days. InformationSp ecimen code = 82847-4) Source: Tiss ueSpecimen Site: Th[facility]: [facility] Test Item Value Reference Range Interpretation Comments Tissue culture No growth Specimen isolate (test after 3 days. InformationSp ecimen code = 59498-6) Source: Tiss ueSpecimen Site: Thigh: in fected right thigh [facility]2021-12-24 20:18:46 Test Item Value Reference Range Interpretation Comments Tissue culture No growth Specimen isolate (test after 3 days. InformationSp ecimen code = 81240-7) Source: Tiss ueSpecimen Site: Thigh: in fected right thigh [facility]ou [facility] [id number] 20:18:46 Test Item Value Reference Range Interpretation Comments Tissue culture No growth Specimen isolate (test after 3 days. InformationSp ecimen code = 30147-0) Source: Tiss ueSpecimen Site: Thigh: in fected [facility] soheosw2669-67-05 20:18:46 Test Item Value Reference Range Interpretation Comments Tissue culture No growth Specimen isolate (test after 3 days. InformationSp ecimen code = 70679-2) Source: Tiss ueSpecimen Site: Thigh: in fected [facility]ou [facility] Hospital[facility] [id number] 20:18:46 Test Item Value Reference Range Interpretation Comments Tissue culture No growth Specimen isolate (test after 3 days. InformationSp ecimen code = 29299-1) Source: Tiss ueSpecimen Site: Thigh: in fected right thigh wou [facility] HospitalT[facility] dgwsuxk4890-80-02 20:18:46 Test Item Value Reference Range Interpretation Comments Tissue culture No growth Specimen isolate (test after 3 days. InformationSp ecimen code = 96646-7) Source: Tiss ueSpecimen Site: Thigh: in fected right thigh wou [facility] [id number] 20:24:42 Test Item Value Reference Range Interpretation Comments AFB stain No acid fast Specimen (test code = bacilli (AFB) InformationSpe cimen 676-7) seen. Source: Drainag eSpecimen Site: Thigh: in fected wound right [facility] wrsiw0499-11-30 20:24:42 Test Item Value Reference Range Interpretation Comments AFB stain No acid fast Specimen (test code = bacilli (AFB) InformationSpe cimen 676-7) seen. Source: Drainag eSpecimen Site: Thigh: in fected wound right [facility] [id number] 20:24:42 Test Item Value Reference Range Interpretation Comments AFB stain No acid fast Specimen (test code = bacilli (AFB) InformationSpe cimen 676-7) seen. Source: Drainag eSpecimen Site: Thigh: in fected wound [facility] [id number] 20:24:42 Test Item Value Reference Range Interpretation Comments AFB stain No acid fast Specimen (test code = bacilli (AFB) InformationSpe cimen 676-7) seen. Source: Drainag eSpecimen Site: Thigh: in fected wound right [facility] [id number] 20:24:42 Test Item Value Reference Range Interpretation Comments AFB stain No acid fast Specimen (test code = bacilli (AFB) InformationSpe cimen 676-7) seen. Source: Drainag eSpecimen Site: Thigh: in fected wound right [facility] [id number] 20:24:42 Test Item Value Reference Range Interpretation Comments AFB stain No acid fast Specimen (test code = bacilli (AFB) InformationSpe cimen 676-7) seen. Source: Drainag eSpecimen Site: Thigh: [facility]ected [facility] [id number] 20:24:42 Test Item Value Reference Range Interpretation Comments AFB stain No acid fast Specimen (test code = bacilli (AFB) InformationSpe cimen 676-7) seen. Source: Drainag eSpecimen Site: Thigh: in fected wound right [facility]AF[facility] [id number] 20:24:42 Test Item Value Reference Range Interpretation Comments AFB stain No acid fast Specimen (test code = bacilli (AFB) InformationSpe cimen 676-7) seen. Source: Drainag eSpecimen Site: Thigh: in fected wound [facility] [id number] 20:24:42 Test Item Value Reference Range Interpretation Comments AFB stain No acid fast Specimen (test code = bacilli (AFB) InformationSpe cimen 676-7) seen. Source: Drainag eSpecimen Site: Thigh: in fected wound right [facility]AF[facility] [id number] 20:24:42 Test Item Value Reference Range Interpretation Comments AFB stain No acid fast Specimen (test code = bacilli (AFB) InformationSpe cimen 676-7) seen. Source: Drainag eSpecimen Site: Thigh: in fected wound [facility] [id number] 20:24:42 Test Item Value Reference Range Interpretation Comments AFB stain No acid fast Specimen (test code = bacilli (AFB) InformationSpe cimen 676-7) seen. Source: Drainag eSpecimen Site: Thigh: in fected wound right [facility]2021-12-20 09:49:57 Test Item Value Reference Range Interpretation Comments Urine culture No growth Specimen isolate (test after 24 InformationSpe cimen code = 78116-8) hours Source: Urin eSpecimen Site: [facility]2021-12-20 09:49:57 Test Item Value Reference Range Interpretation Comments Urine culture No growth Specimen isolate (test after 24 InformationSpe cimen code = 66120-0) hours Source: Urin eSpecimen Site: [facility]2021-12-20 09:49:57 Test Item Value Reference Range Interpretation Comments Urine culture No growth Specimen isolate (test after 24 InformationSpe cimen code = 77055-0) hours Source: Urin eSpecimen Site: [facility]2021-12-20 09:49:57 Test Item Value Reference Range Interpretation Comments Urine culture No growth Specimen isolate (test after 24 InformationSpe cimen code = 53782-3) hours Source: Urin eSpecimen Site: [facility]2021-12-20 09:49:57 Test Item Value Reference Range Interpretation Comments Urine culture No growth Specimen isolate (test after 24 InformationSpe cimen code = 80468-7) hours Source: Urin eSpecimen Site: [facility]2021-12-20 09:49:57 Test Item Value Reference Range Interpretation Comments Urine culture No growth Specimen isolate (test after 24 InformationSpe cimen code = 89800-0) hours Source: Urin eSpecimen Site: [facility]2021-12-20 09:49:57 Test Item Value Reference Range Interpretation Comments Urine culture No growth Specimen isolate (test after 24 InformationSpe cimen code = 44530-9) hours Source: Urin eSpecimen Site: [facility]2021-12-20 09:49:57 Test Item Value Reference Range Interpretation Comments Urine culture No growth Specimen isolate (test after 24 InformationSpe cimen code = 32136-4) hours Source: [facility] Site: Clean cat [facility] HospitalU[facility] [id number] 09:49:57 Test Item Value Reference Range Interpretation Comments Urine culture No growth Specimen isolate (test after 24 InformationSpe cimen code = 56895-8) hours Source: [facility] zjepfql2823-75-73 09:49:57 Test Item Value Reference Range Interpretation Comments Urine culture No growth Specimen isolate (test after 24 InformationSpe cimen code = 19779-1) hours Source: [facility] wtufmnf0473-66-31 09:49:57 Test Item Value Reference Range Interpretation Comments Urine culture No growth Specimen isolate (test after 24 InformationSpe cimen code = 30117-0) hours Source: [facility] Site: Clean cat [facility] qdwqidpymjrd8430-83-47 12:52:00 Test Item Value Reference Range Interpretation Comments ABO grouping (test code = 883-9) B Rh type (test code = 11685-4) POS [facility] qfrnbalogimi3844-97-31 12:52:00 Test Item Value Reference Range Interpretation Comments ABO grouping (test code = 883-9) B Rh type (test code = 73926-8) POS [facility] situfeuvkkwk9991-47-14 12:52:00 Test Item Value Reference Range Interpretation Comments ABO grouping (test code = 883-9) B Rh type (test code = 61637-4) POS [facility] rnqezgwhjviv3369-54-26 12:52:00 Test Item Value Reference Range Interpretation Comments ABO grouping (test code = 883-9) B Rh type (test code = 40625-3) POS [facility] pvyxjmngxklo8045-66-50 12:52:00 Test Item Value Reference Range Interpretation Comments ABO grouping (test code = 883-9) B Rh type (test code = 70678-7) POS [facility] rjpjwagsatkf3519-70-75 12:52:00 Test Item Value Reference Range Interpretation Comments ABO grouping (test code = 883-9) B Rh type (test code = 07256-7) [facility] tvuqjejhmjeg2905-24-30 12:52:00 Test Item Value Reference Range Interpretation Comments ABO grouping (test code = 883-9) B Rh type (test code = 95966-4) [facility] qatdrwuttiad2049-15-60 12:52:00 Test Item Value Reference Range Interpretation Comments ABO grouping (test code = 883-9) B Rh type (test code = 47267-0) [facility] and Rh swphefhybeva3667-61-95 12:52:00 Test Item Value Reference Range Interpretation Comments ABO grouping (test code = 883-9) B Rh type (test code = 88203-4) [facility] and Rh isjqcegbpxfs2876-92-42 12:52:00 Test Item Value Reference Range Interpretation Comments ABO grouping (test code = 883-9) B Rh type (test code = 73031-5) [facility] and Rh kiaqjsahrigs9932-40-35 12:52:00 Test Item Value Reference Range Interpretation Comments ABO grouping (test code = 883-9) B Rh type (test code = 55515-8) [facility] [Presence] in Respiratory specimen by EMANUEL with probe caarkoqdn2566-64-29 03:04:32 Test Item Value Reference Range Interpretation Comments SARS-CoV-2 (COVID-19) RNA Not detected Not-Detected [Presence] in Respiratory specimen by EMANUEL with probe detection (test code = 98512-9) 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 (test 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 = 73016-9) Whether the patient has symptoms related to condition of interest (test code = 79994-5) Patient was hospitalized because of this condition (test code = 00094-4) Whether the patient was admitted to intensive care unit (ICU) for condition of interest (test code = 21821-2) Whether patient resides in a congregate care setting (test code = 87454-6) [facility] RBC, 1 [id number] 22:22:00 Test Item Value Reference Range Interpretation Comments Product name (test code Red Blood Cells -1, = 25) Leukored Unit number (test code = [id number]) Product code (test code P1946L31 = 3092) Dispense status (test Transfused code = 24) Blood expiration date (test code = 302) Blood type code (test code = 308) Blood type (test code = B POSITIVE 1314) Compatibility (test code Compatible = 6400) [facility], 1 Plxxv8214-72-69 22:22:00 Test Item Value Reference Range Interpretation Comments Product name (test code Red Blood Cells -1, = 25) Leukored Unit number (test code = [id number]) Product code (test code L0210A30 = 3092) Dispense status (test Transfused code = 24) Blood expiration date (test code = 302) Blood type code (test code = 308) Blood type (test code = B POSITIVE 1314) Compatibility (test code Compatible = 6400) [facility], 1 [id number] 22:22:00 Test Item Value Reference Range Interpretation Comments Product name (test code Red Blood Cells -1, = 25) Leukored Unit number (test code = [id number] 1380443) Product code (test code N2559U57 = 3092) Dispense status (test Transfused code = 24) Blood expiration date (test code = 302) Blood type code (test code = 308) Blood type (test code = B POSITIVE 1314) Compatibility (test code Compatible = 6400) [facility] RBC, 1 Zyexi6017-55-45 22:22:00 Test Item Value Reference Range Interpretation Comments Product name (test code Red Blood Cells -1, = 25) Leukored Unit number (test code = [id number] 9742699) Product code (test code Q1904Q71 = 3092) Dispense status (test Transfused code = 24) Blood expiration date (test code = 302) Blood type code (test code = 308) Blood type (test code = B POSITIVE 1314) Compatibility (test code Compatible = 6400) [facility], 1 Uyfem5104-41-34 22:22:00 Test Item Value Reference Range Interpretation Comments Product name (test code Red Blood Cells -1, = 25) Leukored Unit number (test code = [id number]) Product code (test code M9530W78 = 3092) Dispense status (test Transfused code = 24) Blood expiration date (test code = 302) Blood type code (test code = 308) Blood type (test code = B POSITIVE 1314) Compatibility (test code Compatible = 6400) [facility], 1 Bliln6369-71-74 22:22:00 Test Item Value Reference Range Interpretation Comments Product name (test code Red Blood Cells -1, = 25) Leukored Unit number (test code = [id number]) Product code (test code L4125W30 = 3092) Dispense status (test Transfused code = 24) Blood expiration date (test code = 302) Blood type code (test code = 308) Blood type (test code = B POSITIVE 1314) Compatibility (test code Compatible = 6400) [facility] Srfms2476-57-65 22:22:00 Test Item Value Reference Range Interpretation Comments Product name (test code Red Blood Cells -1, = 25) Leukored Unit number (test code = [id number] 1059975) Product code (test code Q2936Q29 = 3092) Dispense status (test Transfused code = 24) Blood expiration date (test code = 302) Blood type code (test code = 308) Blood type (test code = B POSITIVE 1314) Compatibility (test code Compatible = 6400) [facility], 1 Flqqr5766-14-67 22:22:00 Test Item Value Reference Range Interpretation Comments Product name (test code Red Blood Cells -1, = 25) Leukored Unit number (test code = [id number] 9944984) Product code (test code B4495U56 = 3092) Dispense status (test Transfused code = 24) Blood expiration date (test code = 302) Blood type code (test code = 308) Blood type (test code = B POSITIVE 1314) Compatibility (test code Compatible = 6400) [facility], 1 Sgefx7929-27-16 22:22:00 Test Item Value Reference Range Interpretation Comments Product name (test code Red Blood Cells -1, = 25) Leukored Unit number (test code = [id number] 8012190) Product code (test code A7653U15 = 3092) Dispense status (test Transfused code = 24) Blood expiration date (test code = 302) Blood type code (test code = 308) Blood type (test code = B POSITIVE 1314) Compatibility (test code Compatible = 6400) [facility] RBC, 1 Jhgoc2934-28-99 22:22:00 Test Item Value Reference Range Interpretation Comments Product name (test code Red Blood Cells -1, = 25) Leukored Unit number (test code = [id number] 6437223) Product code (test code L0573F38 = 3092) Dispense status (test Transfused code = 24) Blood expiration date (test code = 302) Blood type code (test code = 308) Blood type (test code = B POSITIVE 1314) Compatibility (test code Compatible = 6400) [facility] pathology nnywack6532-35-36 20:10:46 Test Item Value Reference Range Interpretation Comments Case number (test code = [id number]) Surgical pathology See link below for report (test code = PDF Lab Report 2255) Result status (test code This is Final Report = [id number]) for [address] pathology pvwsiig0207-93-51 20:10:46 Test Item Value Reference Range Interpretation Comments Case number (test code = [id number]) Surgical pathology See link below for report (test code = PDF Lab Report 2255) Result status (test code This is Final Report = [id number]) for [address] pathology rrnlzvi8629-57-60 20:10:46 Test Item Value Reference Range Interpretation Comments Case number (test code = [id number]) Surgical pathology See link below for report (test code = PDF Lab Report 2255) Result status (test code This is Final Report = [id number]) for [address] pathology icgkeig1299-32-67 20:10:46 Test Item Value Reference Range Interpretation Comments Case number (test code = [id number]) Surgical pathology See link below for report (test code = PDF Lab Report 2255) Result status (test code This is Final Report = [id number]) for [address] pathology qpbqcjn2176-32-45 20:10:46 Test Item Value Reference Range Interpretation Comments Case number (test code = [id number]) Surgical pathology See link below for report (test code = PDF Lab Report 2255) Result status (test code This is Final Report = [id number]) for [address] pathology aedpkeb7974-06-70 20:10:46 Test Item Value Reference Range Interpretation Comments Case number (test code = [id number]) Surgical pathology See link below for report (test code = PDF Lab Report 2255) Result status (test code This is Final Report = [id number]) for [address] pathology wdrlhov6054-17-46 20:10:46 Test Item Value Reference Range Interpretation Comments Case number (test code = [id number]) Surgical pathology See link below for report (test code = PDF Lab Report 2255) Result status (test code This is Final Report = [id number]) for [address] pathology inszosv8813-01-53 20:10:46 Test Item Value Reference Range Interpretation Comments Case number (test code = [id number]) Surgical pathology See link below for report (test code = PDF Lab Report 2255) Result status (test code This is Final Report = [id number]) for [address] pathology ugautnv4877-01-73 20:10:46 Test Item Value Reference Range Interpretation Comments Case number (test code = [id number]) Surgical pathology See link below for report (test code = PDF Lab Report 2255) Result status (test code This is Final Report = [id number]) for [address] pathology eqhoxqi4966-04-15 20:10:46 Test Item Value Reference Range Interpretation Comments Case number (test code = [id number]) Surgical pathology See link below for report (test code = PDF Lab Report 2255) Result status (test code This is Final Report = 1435074) [address] pheresis, 1 [id number] 15:35:00 Test Item Value Reference Range Interpretation Comments Product name (test code Bogdan Henley LR, Path = 25) Red cont3 Unit number (test code = [id number] 1591469) Product code (test code Y4338I18 = 3092) Dispense status (test Transfused code = 24) Blood expiration date (test code = 302) Blood type code (test code = 308) Blood type (test code = O POSITIVE 1314) Compatibility (test code Not required = 6400) [facility], 1 Mgyru6546-22-94 15:35:00 Test Item Value Reference Range Interpretation Comments Product name (test code Bogdan Fraire LR, Path = 25) Red cont3 Unit number (test code = [id number] 6207375) Product code (test code V0169X50 = 3092) Dispense status (test Transfused code = 24) Blood expiration date (test code = 302) Blood type code (test code = 308) Blood type (test code = O POSITIVE 1314) Compatibility (test code Not required = 6400) [facility], 1 Hjchu8303-72-13 15:35:00 Test Item Value Reference Range Interpretation Comments Product name (test code Bogdan Henley LR, Path = 25) Red cont3 Unit number (test code = [id number] 6924530) Product code (test code X6104X57 = 3092) Dispense status (test Transfused code = 24) Blood expiration date (test code = 302) Blood type code (test code = 308) Blood type (test code = O POSITIVE 1314) Compatibility (test code Not required = 6400) [facility] p[facility], 1 Tasao1516-49-32 15:35:00 Test Item Value Reference Range Interpretation Comments Product name (test code Bogdan Fraire LR, Path = 25) Red cont3 Unit number (test code = [id number] 5683375) Product code (test code R3503R66 = 3092) Dispense status (test Transfused code = 24) Blood expiration date (test code = 302) Blood type code (test code = 308) Blood type (test code = O POSITIVE 1314) Compatibility (test code Not required = 6400) [facility], 1 Ygfdh6471-71-39 15:35:00 Test Item Value Reference Range Interpretation Comments Product name (test code Platerick Henley LR, Path = 25) Red cont3 Unit number (test code = [id number] 1682075) Product code (test code V9526M20 = 3092) Dispense status (test Transfused code = 24) Blood expiration date (test code = 302) Blood type code (test code = 308) Blood type (test code = O POSITIVE 1314) Compatibility (test code Not required = 6400) [facility], 1 Nsfhk9351-43-57 15:35:00 Test Item Value Reference Range Interpretation Comments Product name (test code Bogdan Fraire LR, Path = 25) Red cont3 Unit number (test code = [id number] 4702846) Product code (test code G6980F30 = 3092) Dispense status (test Transfused code = 24) Blood expiration date (test code = 302) Blood type code (test code = 308) Blood type (test code = O POSITIVE 1314) Compatibility (test code Not required = 6400) [facility], 1 Sptbk7691-05-91 15:35:00 Test Item Value Reference Range Interpretation Comments Product name (test code Bogdan Henley LR, Path = 25) Red cont3 Unit number (test code = [id number] 4615308) Product code (test code O9520N22 = 3092) Dispense status (test Transfused code = 24) Blood expiration date (test code = 302) Blood type code (test code = 308) Blood type (test code = O POSITIVE 1314) Compatibility (test code Not required = 6400) [facility], 1 Lsneu8287-50-52 15:35:00 Test Item Value Reference Range Interpretation Comments Product name (test code Bogdan Henley LR, Path = 25) Red cont3 Unit number (test code = [id number] 9189867) Product code (test code O4613T45 = 3092) Dispense status (test Transfused code = 24) Blood expiration date (test code = 302) Blood type code (test code = 308) Blood type (test code = O POSITIVE 1314) Compatibility (test code Not required = 6400) [facility], 1 Wyufx1374-54-22 15:35:00 Test Item Value Reference Range Interpretation Comments Product name (test code Platerick Henley LR, Path = 25) Red cont3 Unit number (test code = [id number] 3105783) Product code (test code L4816W07 = 3092) Dispense status (test Transfused code = 24) Blood expiration date (test code = 302) Blood type code (test code = 308) Blood type (test code = O POSITIVE 1314) Compatibility (test code Not required = 6400) [facility] 1 Uqucl6969-15-89 15:35:00 Test Item Value Reference Range Interpretation Comments Product name (test code Bogdan Fraire LR, Path = 25) Red cont3 Unit number (test code = [id number] 2666418) Product code (test code U8583A91 = 3092) Dispense status (test Transfused code = 24) Blood expiration date (test code = 302) Blood type code (test code = 308) Blood type (test code = O POSITIVE 1314) Compatibility (test code Not required = 6400) [facility] Center[facility] clot[facility] btku2243-18-95 12:13:24 Test Item Value Reference Range Interpretation Comments Activated clotting time See_Comment H Oper ator Name: (test code = 5298) Bryn thorntoneaDevice ID: [id number] [Automated mess age] The system [employer] generated this result transmitted ref erence range: 96 - 152 sec. The reference r leo was not used to interpret this result as normal/abnor mal. Lab Interpretation (test Abnormal code = 98439-2) [facility] [id number] 12:13:24 Test Item Value Reference Range Interpretation Comments Activated clotting time See_Comment H Oper ator Name: (test code = 5298) Bryn Denny eneaDevice ID: [id number] [Automated mess age] The system [employer] generated this result transmitted ref erence range: 96 - 152 sec. The reference r leo was not used to interpret this result as normal/abnor mal. Lab Interpretation (test Abnormal code = 10077-3) [facility] [id number] 12:13:24 Test Item Value Reference Range Interpretation Comments Activated clotting time See_Comment H Oper ator Name: (test code = 5298) Bryn Denny eneaDevice ID: [id number] [Automated mess age] The system whic h generated this result transmitted ref erence range: 96 - 152 sec. The reference r leo was not used to interpret this result as normal/abnor mal. Lab Interpretation (test Abnormal code = 93769-2) [facility] [id number] 12:13:24 Test Item Value Reference Range Interpretation Comments Activated clotting time See_Comment H Oper ator Name: (test code = 5298) Bryn Eduin eneaDevice ID: [id number] [Automated mess age] The system [employer] generated this result transmitted ref erence range: 96 - 152 sec. The reference r leo was not used to interpret this result as normal/abnor mal. Lab Interpretation (test Abnormal code = 67336-7) [facility] [id number] 12:13:24 Test Item Value Reference Range Interpretation Comments Activated clotting time See_Comment H Oper ator Name: (test code = 5298) Penelopemeet R eneaDevice ID: [id number] [Automated mess age] The system [employer] generated this result transmitted ref erence range: 96 - 152 sec. The reference r leo was not used to interpret this result as normal/abnor mal. Lab Interpretation (test Abnormal code = 84793-2) [facility] [id number] 12:13:24 Test Item Value Reference Range Interpretation Comments Activated clotting time See_Comment H Oper ator Name: (test code = 5298) Bryn R eneaDevice ID: [id number] [Automated mess age] The system [employer] generated this result transmitted ref erence range: 96 - 152 sec. The reference r leo was not used to interpret this result as normal/abnor mal. Lab Interpretation (test Abnormal code = 85980-7) [facility] [id number] 12:13:24 Test Item Value Reference Range Interpretation Comments Activated clotting time See_Comment H Oper ator Name: (test code = 5298) Bryn R eneaDevice ID: [id number] [Automated mess age] The system [employer] generated this result transmitted ref erence range: 96 - 152 sec. The reference r leo was not used to interpret this result as normal/abnor mal. Lab Interpretation (test Abnormal code = 28607-6) [facility] [id number] 12:13:24 Test Item Value Reference Range Interpretation Comments Activated clotting time See_Comment H Oper ator Name: (test code = 5298) Bryn Denny Silvianovice ID: [id number] [Automated mess age] The system [employer] generated this result transmitted ref erence range: 96 - 152 sec. The reference r leo was not used to interpret this result as normal/abnor mal. Lab Interpretation (test Abnormal code = 19101-8) [facility] [id number] 12:13:24 Test Item Value Reference Range Interpretation Comments Activated clotting time See_Comment H Oper ator Name: (test code = 5298) Bryn Denny Silvianovice ID: [id number] [Automated mess age] The system [employer] generated this result transmitted ref erence range: 96 - 152 sec. The reference r leo was not used to interpret this result as normal/abnor mal. Lab Interpretation (test Abnormal code = 11425-5) [facility] [id number] 12:13:24 Test Item Value Reference Range Interpretation Comments Activated clotting time See_Comment H Oper ator Name: (test code = 5298) Bryn Denny Silvianovice ID: [id number] [Automated mess age] The system [employer] generated this result transmitted ref erence range: 96 - 152 sec. The reference r leo was not used to interpret this result as normal/abnor mal. Lab Interpretation (test Abnormal code = 51994-3) [facility] [id number] 14:37:48 Test Item Value Reference Range Interpretation Comments POC sodium (test code = 138 mmol/L 242-239 3381-0) POC potassium (test 5.5 mmol/L 3.5-5 H code = 6298-4) POC glucose (test code 295 mg/dL 65-99 H = 2339-0) POC creatinine (test 5.3 mg/dl 0.5-0.9 H Operato r Name: Pugne code = 34663-7) Hillarye ID: [id number] POC hemoglobin (test 18.4 g/dL 12-16 H code = 718-7) POC hematocrit (test 54 % 37-47 H code = 4544-3) Lab Interpretation Abnormal (test code = 37820-1) [place] [id number] 14:37:48 Test Item Value Reference Range Interpretation Comments POC sodium (test code = 138 mmol/L 606-326 4894-0) POC potassium (test 5.5 mmol/L 3.5-5 H code = 6298-4) POC glucose (test code 295 mg/dL 65-99 H = 2339-0) POC creatinine (test 5.3 mg/dl 0.5-0.9 H Operato r Name: Pugne code = 70343-6) AileenDevice ID: [id number] POC hemoglobin (test 18.4 g/dL 12-16 H code = 718-7) POC hematocrit (test 54 % 37-47 H code = 4544-3) Lab Interpretation Abnormal (test code = 84743-9) [facility]2021-11-29 14:37:48 Test Item Value Reference Range Interpretation Comments POC sodium (test code = 138 mmol/L 749-831 7869-0) POC potassium (test 5.5 mmol/L 3.5-5 H code = 6298-4) POC glucose (test code 295 mg/dL 65-99 H = 2339-0) POC creatinine (test 5.3 mg/dl 0.5-0.9 H Operato r Name: Pugne code = 00747-9) AileenDevice ID: [id number] POC hemoglobin (test 18.4 g/dL 12-16 H code = 718-7) POC hematocrit (test 54 % 37-47 H code = 4544-3) Lab Interpretation Abnormal (test code = 92752-9) [place] [id number] 14:37:48 Test Item Value Reference Range Interpretation Comments POC sodium (test code = 138 mmol/L 580-411 2791-0) POC potassium (test 5.5 mmol/L 3.5-5 H code = 6298-4) POC glucose (test code 295 mg/dL 65-99 H = 2339-0) POC creatinine (test 5.3 mg/dl 0.5-0.9 H Operato r Name: Pugne code = 00905-7) AileenDevice ID: [id number] POC hemoglobin (test 18.4 g/dL 12-16 H code = 718-7) POC hematocrit (test 54 % 37-47 H code = 4544-3) Lab Interpretation Abnormal (test code = 50956-0) [facility]2021-11-29 14:37:48 Test Item Value Reference Range Interpretation Comments POC sodium (test code = 138 mmol/L 542-935 2844-0) POC potassium (test 5.5 mmol/L 3.5-5 H code = 6298-4) POC glucose (test code 295 mg/dL 65-99 H = 2339-0) POC creatinine (test 5.3 mg/dl 0.5-0.9 H Operato r Name: Pue code = 84554-5) LisbethDevice ID: [id number] POC hemoglobin (test 18.4 g/dL 12-16 H code = 718-7) POC hematocrit (test 54 % 37-47 H code = 4544-3) Lab Interpretation Abnormal (test code = 66609-1) [facility]2021-11-29 14:37:48 Test Item Value Reference Range Interpretation Comments POC sodium (test code = 138 mmol/L 842-025 1234-0) POC potassium (test 5.5 mmol/L 3.5-5.0 H code = 6298-4) POC glucose (test code 295 mg/dL 65-99 H = 2339-0) POC creatinine (test 5.3 mg/dl 0.5-0.9 H Operato r Name: Pugne code = 07396-7) Lisavice ID: [id number] POC hemoglobin (test 18.4 g/dL 12.0-16.0 H code = 718-7) POC hematocrit (test 54 % 37-47 H code = 4544-3) Lab Interpretation Abnormal (test code = 59506-7) [facility]2021-11-29 14:37:48 Test Item Value Reference Range Interpretation Comments POC sodium (test code = 138 mmol/L 909-510 3517-0) POC potassium (test 5.5 mmol/L 3.5-5.0 H code = 6298-4) POC glucose (test code 295 mg/dL 65-99 H = 2339-0) POC creatinine (test 5.3 mg/dl 0.5-0.9 H Operato r Name: Pugne code = 89878-0) AileenDevice ID: [id number] POC hemoglobin (test 18.4 g/dL 12.0-16.0 H code = 718-7) POC hematocrit (test 54 % 37-47 H code = 4544-3) Lab Interpretation Abnormal (test code = 98389-4) [facility]2021-11-29 14:37:48 Test Item Value Reference Range Interpretation Comments POC sodium (test code = 138 mmol/L 812-271 7984-0) POC potassium (test 5.5 mmol/L 3.5-5 H code = 6298-4) POC glucose (test code 295 mg/dL 65-99 H = 2339-0) POC creatinine (test 5.3 mg/dl 0.5-0.9 H Operato r Name: Pugne code = 58710-3) AileenDevice ID: [id number] POC hemoglobin (test 18.4 g/dL 12-16 H code = 718-7) POC hematocrit (test 54 % 37-47 H code = 4544-3) Lab Interpretation Abnormal (test code = 22656-6) [facility]2021-11-29 14:37:48 Test Item Value Reference Range Interpretation Comments POC sodium (test code = 138 mmol/L 180-675 9773-0) POC potassium (test 5.5 mmol/L 3.5-5 H code = 6298-4) POC glucose (test code 295 mg/dL 65-99 H = 2339-0) POC creatinine (test 5.3 mg/dl 0.5-0.9 H Operato r Name: Pugne code = 89505-0) AileenDevice ID: [id number] POC hemoglobin (test 18.4 g/dL 12-16 H code = 718-7) POC hematocrit (test 54 % 37-47 H code = 4544-3) Lab Interpretation Abnormal (test code = 95590-6) [facility]2021-11-29 14:37:48 Test Item Value Reference Range Interpretation Comments POC sodium (test code = 138 mmol/L 145-740 0934-0) POC potassium (test 5.5 mmol/L 3.5-5 H code = 6298-4) POC glucose (test code 295 mg/dL 65-99 H = 2339-0) POC creatinine (test 5.3 mg/dl 0.5-0.9 H Operato r Name: Pat code = 37904-9) Viridiana ID: [id number] POC hemoglobin (test 18.4 g/dL 12-16 H code = 718-7) POC hematocrit (test 54 % 37-47 H code = 4544-3) Lab Interpretation Abnormal (test code = 19682-3) [facility] [Presence] in Respiratory specimen by EMANUEL with probe cyrdjujnq8075-10-83 07:53:49 Test Item Value Reference Range Interpretation Comments SARS-CoV-2 (COVID-19) RNA Not detected Not-Detected [Presence] in Respiratory specimen by EMANUEL with probe detection (test code = 50139-7) 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 (test code = 70589-8) Whether the patient has symptoms related to condition of interest (test code = 99120-2) Patient was hospitalized because of this condition (test code = 67066-6) Whether the patient was admitted to intensive care unit (ICU) for condition of interest (test code = 46137-4) Whether patient resides in a congregate care setting (test code = 58033-4) [facility] [id number] 08:17:00 Test Item Value Reference Range Interpretation Comments Glucose Lvl (test code = Glucose Lvl) 94 70-99 [facility] [id number] 08:17:00 Test Item Value Reference Range Interpretation Comments BUN (test code = BUN) 27 7-22 [facility]2021-08-11 08:17:00 Test Item Value Reference Range Interpretation Comments Creatinine Lvl (test code = Creatinine 4.95 0.50-1.40 Lvl) [facility]2021-08-11 08:17:00 Test Item Value Reference Range Interpretation Comments Sodium Lvl (test code = Sodium Lvl) 136 135-145 [facility]2021-08-11 08:17:00 Test Item Value Reference Range Interpretation Comments Potassium Lvl (test code = Potassium 3.9 3.5-5.1 Lvl) [place] 006531-08-11 08:17:00 Test Item Value Reference Range Interpretation Comments Chloride Lvl (test code = Chloride Lvl) 103 95-109 [place] 006531-08-11 08:17:00 Test Item Value Reference Range Interpretation Comments CO2 (test code = CO2) 30 24-32 [place] 006531-08-11 08:17:00 Test Item Value Reference Range Interpretation Comments AGAP (test code = AGAP) 6.9 10.0-20.0 [place] 72847-08-11 08:17:00 Test Item Value Reference Range Interpretation Comments Calcium Lvl (test code = Calcium Lvl) 8.5 8.5-10.5 [place] 006531-08-11 08:17:00 Test Item Value Reference Range Interpretation Comments eGFR (test code = eGFR) 10 [place] 006531-08-11 08:17:00 Test Item Value Reference Range Interpretation Comments Phosphorus (test code = Phosphorus) 3.0 2.5-4.5 [place] 006531-08-11 08:17:00 Test Item Value Reference Range Interpretation Comments Magnesium Lvl (test code = Magnesium 2.4 1.8-2.4 Lvl) [place] 679791-08-11 08:17:00 Test Item Value Reference Range Interpretation Comments WBC (test code = WBC) 2.3 3.7-10.4 [place] 679791-08-11 08:17:00 Test Item Value Reference Range Interpretation Comments RBC (test code = RBC) 2.65 4.20-5.40 [place] 44870-08-11 08:17:00 Test Item Value Reference Range Interpretation Comments Hgb (test code = Hgb) 7.9 12.0-16.0 [place] [address]-08-11 08:17:00 Test Item Value Reference Range Interpretation Comments Hct (test code = Hct) 24.0 36.0-48.0 [place] [address]-08-11 08:17:00 Test Item Value Reference Range Interpretation Comments MCV (test code = MCV) 90.6 80.0-98.0 [place] [address]-08-11 08:17:00 Test Item Value Reference Range Interpretation Comments MCH (test code = MCH) 29.7 pg 27.0-31.0 [facility]DJU7788[facility]76-54 08:17:00 Test Item Value Reference Range Interpretation Comments MCHC (test code = MCHC) 32.7 32.0-36.0 [facility]anoXlnallxQBULLDWHDF7537-69-83 08:17:00 Test Item Value Reference Range Interpretation Comments RDW (test code = RDW) 19.1 11.5-14.5 [facility]anoFfsuwxnQEHMEUHJMQ1162-46-08 08:17:00 Test Item Value Reference Range Interpretation Comments Platelet (test code = Platelet) 71 133-450 [facility]anoNxhrbvdRNQEZXOGRF2572-19-69 08:17:00 Test Item Value Reference Range Interpretation Comments MPV (test code = MPV) 9.9 7.4-10.4 [facility]anoYrlciblEUBSZCUIOL4968-37-14 08:17:00 Test Item Value Reference Range Interpretation Comments Segs (test code = Segs) 56.1 45.0-75.0 [facility]anoJvznllpXTBLPZBGRW8709-57-51 08:17:00 Test Item Value Reference Range Interpretation Comments Lymphocytes (test code = Lymphocytes) 28.9 20.0-40.0 [facility]anoNyvxbdnCTKRJTRETC7289-38-32 08:17:00 Test Item Value Reference Range Interpretation Comments Monocytes (test code = Monocytes) 8.1 2.0-12.0 [facility]anoLqzmpseDOQFAQOKTF9898-67-69 08:17:00 Test Item Value Reference Range Interpretation Comments Eosinophils (test code = 5.9 See_Comment [A utomated message] The Eosinophils) system which ge nerated this result tra nsmitted reference range : <=4.0. The reference r leo was not used to int erpret this result as normal/abnormal . [facility]anoLvsdwuqKHBNKLXRIJ4678-10-70 08:17:00 Test Item Value Reference Range Interpretation Comments Basophils (test code = 1.0 See_Comment [Aut omated message] The Basophils) system which ge nerated this result tra nsmitted reference range : <=1.0. The reference r leo was not used to int erpret this result as normal/abnormal . [facility]anoSsbvvcgUVOZCHYIRD7366-16-87 08:17:00 Test Item Value Reference Range Interpretation Comments Neutrophils # (test code = Neutrophils 1.3 1.5-8.1 #) [place] 679791-08-11 08:17:00 Test Item Value Reference Range Interpretation Comments Lymphocytes # (test code = Lymphocytes 0.7 1.0-5.5 #) [place] 679791-08-11 08:17:00 Test Item Value Reference Range Interpretation Comments Monocytes # (test code 0.2 See_Comment [Aut omated message] The = Monocytes #) system which generated this result tra nsmitted reference range : <=0.8. The reference r leo was not used to int erpret this result as normal/abnormal . [place] 679791-08-11 08:17:00 Test Item Value Reference Range Interpretation Comments Eosinophils # (test code 0.1 See_Comment [A utomated message] The = Eosinophils #) system whic h generated this result tra nsmitted reference range : <=0.5. The reference r leo was not used to int erpret this result as normal/abnormal . [place] 006531-08-11 08:17:00 Test Item Value Reference Range Interpretation Comments Glucose Lvl (test code = Glucose Lvl) 94 70-99 [place] 006531-08-11 08:17:00 Test Item Value Reference Range Interpretation Comments BUN (test code = BUN) 27 7-22 [place] 006531-08-11 08:17:00 Test Item Value Reference Range Interpretation Comments Creatinine Lvl (test code = Creatinine 4.95 0.50-1.40 Lvl) [place] 006531-08-11 08:17:00 Test Item Value Reference Range Interpretation Comments Sodium Lvl (test code = Sodium Lvl) 136 135-145 [place] 006531-08-11 08:17:00 Test Item Value Reference Range Interpretation Comments Potassium Lvl (test code = Potassium 3.9 3.5-5.1 Lvl) [place] 006531-08-11 08:17:00 Test Item Value Reference Range Interpretation Comments Chloride Lvl (test code = Chloride Lvl) 103 95-109 [place] 006531-08-11 08:17:00 Test Item Value Reference Range Interpretation Comments CO2 (test code = CO2) 30 24-32 [place] 006531-08-11 08:17:00 Test Item Value Reference Range Interpretation Comments AGAP (test code = AGAP) 6.9 10.0-20.0 [facility]2021-08-11 08:17:00 Test Item Value Reference Range Interpretation Comments Calcium Lvl (test code = Calcium Lvl) 8.5 8.5-10.5 [facility]2021-08-11 08:17:00 Test Item Value Reference Range Interpretation Comments eGFR (test code = eGFR) 10 [facility]2021-08-11 08:17:00 Test Item Value Reference Range Interpretation Comments Phosphorus (test code = Phosphorus) 3.0 2.5-4.5 [facility]2021-08-11 08:17:00 Test Item Value Reference Range Interpretation Comments Magnesium Lvl (test code = Magnesium 2.4 1.8-2.4 Lvl) [place] 679791-08-11 08:17:00 Test Item Value Reference Range Interpretation Comments WBC (test code = WBC) 2.3 3.7-10.4 [place] 679791-08-11 08:17:00 Test Item Value Reference Range Interpretation Comments RBC (test code = RBC) 2.65 4.20-5.40 [place] 679791-08-11 08:17:00 Test Item Value Reference Range Interpretation Comments Hgb (test code = Hgb) 7.9 12.0-16.0 [place] 679791-08-11 08:17:00 Test Item Value Reference Range Interpretation Comments Hct (test code = Hct) 24.0 36.0-48.0 [place] 679791-08-11 08:17:00 Test Item Value Reference Range Interpretation Comments MCV (test code = MCV) 90.6 80.0-98.0 [place] 679791-08-11 08:17:00 Test Item Value Reference Range Interpretation Comments MCH (test code = MCH) 29.7 pg 27.0-31.0 [place] 679791-08-11 08:17:00 Test Item Value Reference Range Interpretation Comments MCHC (test code = MCHC) 32.7 32.0-36.0 [place] 679791-08-11 08:17:00 Test Item Value Reference Range Interpretation Comments RDW (test code = RDW) 19.1 11.5-14.5 [place] 679791-08-11 08:17:00 Test Item Value Reference Range Interpretation Comments Platelet (test code = Platelet) 71 133-450 [place] 679791-08-11 08:17:00 Test Item Value Reference Range Interpretation Comments MPV (test code = MPV) 9.9 7.4-10.4 [facility]anoNeksiljVECUQLZZEW2333-64-03 08:17:00 Test Item Value Reference Range Interpretation Comments Segs (test code = Segs) 56.1 45.0-75.0 [place] 679791-08-11 08:17:00 Test Item Value Reference Range Interpretation Comments Lymphocytes (test code = Lymphocytes) 28.9 20.0-40.0 [place] 679791-08-11 08:17:00 Test Item Value Reference Range Interpretation Comments Monocytes (test code = Monocytes) 8.1 2.0-12.0 [facility]anoAovkxjqCKXNGJMTMU3563-12-79 08:17:00 Test Item Value Reference Range Interpretation Comments Eosinophils (test code = 5.9 See_Comment [A utomated message] The Eosinophils) system which ge nerated this result tra nsmitted reference range : <=4.0. The reference r leo was not used to int erpret this result as normal/abnormal . [facility]anoJodgwkmLTSAOEYZOC0199-15-02 08:17:00 Test Item Value Reference Range Interpretation Comments Basophils (test code = 1.0 See_Comment [Aut omated message] The Basophils) system which ge nerated this result tra nsmitted reference range : <=1.0. The reference r leo was not used to int erpret this result as normal/abnormal . [facility]anoBoptvjyPOIYSIMNNW0330-44-97 08:17:00 Test Item Value Reference Range Interpretation Comments Neutrophils # (test code = Neutrophils 1.3 1.5-8.1 #) [place] 679791-08-11 08:17:00 Test Item Value Reference Range Interpretation Comments Lymphocytes # (test code = Lymphocytes 0.7 1.0-5.5 #) [place] 679791-08-11 08:17:00 Test Item Value Reference Range Interpretation Comments Monocytes # (test code 0.2 See_Comment [Aut omated message] The = Monocytes #) system which generated this result tra nsmitted reference range : <=0.8. The reference r leo was not used to int erpret this result as normal/abnormal . [place] 679791-08-11 08:17:00 Test Item Value Reference Range Interpretation Comments Eosinophils # (test code 0.1 See_Comment [A utomated message] The = Eosinophils #) system whic h generated this result tra nsmitted reference range : <=0.5. The reference r leo was not used to int erpret this result as normal/abnormal . [place] 006531-08-11 08:17:00 Test Item Value Reference Range Interpretation Comments Glucose Lvl (test code = Glucose Lvl) 94 70-99 [place] 006531-08-11 08:17:00 Test Item Value Reference Range Interpretation Comments BUN (test code = BUN) 27 7-22 [place] 006531-08-11 08:17:00 Test Item Value Reference Range Interpretation Comments Creatinine Lvl (test code = Creatinine 4.95 0.50-1.40 Lvl) [place] 72847-08-11 08:17:00 Test Item Value Reference Range Interpretation Comments Sodium Lvl (test code = Sodium Lvl) 136 135-145 [facility] [address]TNGMK1388-74-87 08:17:00 Test Item Value Reference Range Interpretation Comments Potassium Lvl (test code = Potassium 3.9 3.5-5.1 Lvl) [place] 006531-08-11 08:17:00 Test Item Value Reference Range Interpretation Comments Chloride Lvl (test code = Chloride Lvl) 103 95-109 [place] 728[address]-08-11 08:17:00 Test Item Value Reference Range Interpretation Comments CO2 (test code = CO2) 30 24-32 [facility] [address]USDWW0966-56-41 08:17:00 Test Item Value Reference Range Interpretation Comments AGAP (test code = AGAP) 6.9 10.0-20.0 [place] 7[address]-08-11 08:17:00 Test Item Value Reference Range Interpretation Comments Calcium Lvl (test code = Calcium Lvl) 8.5 8.5-10.5 [facility]icsT[facility] Ass[facility] [id number] 08:17:00 Test Item Value Reference Range Interpretation Comments eGFR (test code = eGFR) 10 [facility]2021-08-11 08:17:00 Test Item Value Reference Range Interpretation Comments Phosphorus (test code = Phosphorus) 3.0 2.5-4.5 [facility] UOQXB4196-67-26 08:17:00 Test Item Value Reference Range Interpretation Comments Magnesium Lvl (test code = Magnesium 2.4 1.8-2.4 Lvl) [facility]PwthabhZFXJYORGJQ6685-20-68 08:17:00 Test Item Value Reference Range Interpretation Comments WBC (test code = WBC) 2.3 3.7-10.4 [place] 679791-08-11 08:17:00 Test Item Value Reference Range Interpretation Comments RBC (test code = RBC) 2.65 4.20-5.40 [place] 679791-08-11 08:17:00 Test Item Value Reference Range Interpretation Comments Hgb (test code = Hgb) 7.9 12.0-16.0 [place] 679791-08-11 08:17:00 Test Item Value Reference Range Interpretation Comments Hct (test code = Hct) 24.0 36.0-48.0 [facility]anoByypurvLFFGZOWDRH8659-93-21 08:17:00 Test Item Value Reference Range Interpretation Comments MCV (test code = MCV) 90.6 80.0-98.0 [facility]anoNhjauyeLJNKQHNHJT3467-98-32 08:17:00 Test Item Value Reference Range Interpretation Comments MCH (test code = MCH) 29.7 pg 27.0-31.0 [facility]anoLmtdlebLUYPFPPKFU0759-43-36 08:17:00 Test Item Value Reference Range Interpretation Comments MCHC (test code = MCHC) 32.7 32.0-36.0 [place] 679791-08-11 08:17:00 Test Item Value Reference Range Interpretation Comments RDW (test code = RDW) 19.1 11.5-14.5 [place] 679791-08-11 08:17:00 Test Item Value Reference Range Interpretation Comments Platelet (test code = Platelet) 71 133-450 [place] 679791-08-11 08:17:00 Test Item Value Reference Range Interpretation Comments MPV (test code = MPV) 9.9 7.4-10.4 [place] 679791-08-11 08:17:00 Test Item Value Reference Range Interpretation Comments Segs (test code = Segs) 56.1 45.0-75.0 [place] 679791-08-11 08:17:00 Test Item Value Reference Range Interpretation Comments Lymphocytes (test code = Lymphocytes) 28.9 20.0-40.0 [place] 679791-08-11 08:17:00 Test Item Value Reference Range Interpretation Comments Monocytes (test code = Monocytes) 8.1 2.0-12.0 [place] 679791-08-11 08:17:00 Test Item Value Reference Range Interpretation Comments Eosinophils (test code = 5.9 See_Comment [A utomated message] The Eosinophils) system which ge nerated this result tra nsmitted reference range : <=4.0. The reference r leo was not used to int erpret this result as normal/abnormal . [facility]WbyeebyFDXHWUBCMD7284-36-[facility] 08:17:00 Test Item Value Reference Range Interpretation Comments Basophils (test code = 1.0 See_Comment [Aut omated message] The Basophils) system which ge nerated this result tra nsmitted reference range : <=1.0. The reference r leo was not used to int erpret this result as normal/abnormal . [facility]anoEptpwveMIDTEXXXJD0589-37-07 08:17:00 Test Item Value Reference Range Interpretation Comments Neutrophils # (test code = Neutrophils 1.3 1.5-8.1 #) [facility]anoSlrivxrPHGTUVJTLQ1867-46-96 08:17:00 Test Item Value Reference Range Interpretation Comments Lymphocytes # (test code = Lymphocytes 0.7 1.0-5.5 #) [place] 679791-08-11 08:17:00 Test Item Value Reference Range Interpretation Comments Monocytes # (test code 0.2 See_Comment [Aut omated message] The = Monocytes #) system which generated this result tra nsmitted reference range : <=0.8. The reference r leo was not used to int erpret this result as normal/abnormal . [facility]anoIvfxhiyJNFRVKUWDN6545-44-68 08:17:00 Test Item Value Reference Range Interpretation Comments Eosinophils # (test code 0.1 See_Comment [A utomated message] The = Eosinophils #) system whic h generated this result tra nsmitted reference range : <=0.5. The reference r leo was not used to int erpret this result as normal/abnormal . [place] 006531-08-11 08:17:00 Test Item Value Reference Range Interpretation Comments Glucose Lvl (test code = Glucose Lvl) 94 70-99 [place] 006531-08-11 08:17:00 Test Item Value Reference Range Interpretation Comments BUN (test code = BUN) 27 7-22 [place] 006531-08-11 08:17:00 Test Item Value Reference Range Interpretation Comments Creatinine Lvl (test code = Creatinine 4.95 0.50-1.40 Lvl) [place] 006531-08-11 08:17:00 Test Item Value Reference Range Interpretation Comments Sodium Lvl (test code = Sodium Lvl) 136 135-145 [place] 006531-08-11 08:17:00 Test Item Value Reference Range Interpretation Comments Potassium Lvl (test code = Potassium 3.9 3.5-5.1 Lvl) [facility]2021-08-11 08:17:00 Test Item Value Reference Range Interpretation Comments Chloride Lvl (test code = Chloride Lvl) 103 95-109 [place] 006531-08-11 08:17:00 Test Item Value Reference Range Interpretation Comments CO2 (test code = CO2) 30 24-32 [place] 006531-08-11 08:17:00 Test Item Value Reference Range Interpretation Comments AGAP (test code = AGAP) 6.9 10.0-20.0 [place] 006531-08-11 08:17:00 Test Item Value Reference Range Interpretation Comments Calcium Lvl (test code = Calcium Lvl) 8.5 8.5-10.5 [place] 006531-08-11 08:17:00 Test Item Value Reference Range Interpretation Comments eGFR (test code = eGFR) 10 [place] 006531-08-11 08:17:00 Test Item Value Reference Range Interpretation Comments Phosphorus (test code = Phosphorus) 3.0 2.5-4.5 [place] 006531-08-11 08:17:00 Test Item Value Reference Range Interpretation Comments Magnesium Lvl (test code = Magnesium 2.4 1.8-2.4 Lvl) [facility]anoGntbvhkMXIJSLATAP7418-48-03 08:17:00 Test Item Value Reference Range Interpretation Comments WBC (test code = WBC) 2.3 3.7-10.4 [facility]anoXmzyyjyQAIAMVENOZ6223-47-62 08:17:00 Test Item Value Reference Range Interpretation Comments RBC (test code = RBC) 2.65 4.20-5.40 [facility]anoCijpgfuCHNIYRIFCY6368-88-19 08:17:00 Test Item Value Reference Range Interpretation Comments Hgb (test code = Hgb) 7.9 12.0-16.0 [facility]anoKiqzqwkZSEXFULOOH1559-92-01 08:17:00 Test Item Value Reference Range Interpretation Comments Hct (test code = Hct) 24.0 36.0-48.0 [facility]anoHelentfIBNBHXUAPN5315-73-01 08:17:00 Test Item Value Reference Range Interpretation Comments MCV (test code = MCV) 90.6 80.0-98.0 [facility]anoSjvtvrpWDIYXGCZYP9388-47-23 08:17:00 Test Item Value Reference Range Interpretation Comments MCH (test code = MCH) 29.7 pg 27.0-31.0 [facility]anoHtdpvflKKDZBGEBCF0666-74-30 08:17:00 Test Item Value Reference Range Interpretation Comments MCHC (test code = MCHC) 32.7 32.0-36.0 [facility]anoBxarjsqTYMXFUDEVU5402-16-05 08:17:00 Test Item Value Reference Range Interpretation Comments RDW (test code = RDW) 19.1 11.5-14.5 [facility]anoZzqasmfIWFLYFRHOA3567-54-14 08:17:00 Test Item Value Reference Range Interpretation Comments Platelet (test code = Platelet) 71 133-450 [facility]anoKwsmhwnBPJKTOUSWP6305-85-50 08:17:00 Test Item Value Reference Range Interpretation Comments MPV (test code = MPV) 9.9 7.4-10.4 [facility]anoJsiftiwYSTFOEEMDX5163-21-52 08:17:00 Test Item Value Reference Range Interpretation Comments Segs (test code = Segs) 56.1 45.0-75.0 [facility]anoKaekqsdCNSAADFYOP6277-61-84 08:17:00 Test Item Value Reference Range Interpretation Comments Lymphocytes (test code = Lymphocytes) 28.9 20.0-40.0 [place] 679791-08-11 08:17:00 Test Item Value Reference Range Interpretation Comments Monocytes (test code = Monocytes) 8.1 2.0-12.0 [place] 679791-08-11 08:17:00 Test Item Value Reference Range Interpretation Comments Eosinophils (test code = 5.9 See_Comment [A utomated message] The Eosinophils) system which ge nerated this result tra nsmitted reference range : <=4.0. The reference r leo was not used to int erpret this result as normal/abnormal . [place] 679791-08-11 08:17:00 Test Item Value Reference Range Interpretation Comments Basophils (test code = 1.0 See_Comment [Aut omated message] The Basophils) system which ge nerated this result tra nsmitted reference range : <=1.0. The reference r leo was not used to int erpret this result as normal/abnormal . [place] 679791-08-11 08:17:00 Test Item Value Reference Range Interpretation Comments Neutrophils # (test code = Neutrophils 1.3 1.5-8.1 #) [facility]anoCbnyyxkRWADULIASP0412-06-12 08:17:00 Test Item Value Reference Range Interpretation Comments Lymphocytes # (test code = Lymphocytes 0.7 1.0-5.5 #) [place] 679791-08-11 08:17:00 Test Item Value Reference Range Interpretation Comments Monocytes # (test code 0.2 See_Comment [Aut omated message] The = Monocytes #) system which generated this result tra nsmitted reference range : <=0.8. The reference r leo was not used to int erpret this result as normal/abnormal . [facility]anoNoroshcVBVUHUQYJY0235-19-25 08:17:00 Test Item Value Reference Range Interpretation Comments Eosinophils # (test code 0.1 See_Comment [A utomated message] The = Eosinophils #) system whic h generated this result tra nsmitted reference range : <=0.5. The reference r leo was not used to int erpret this result as normal/abnormal . [facility] [id number] 08:17:00 Test Item Value Reference Range Interpretation Comments Glucose Lvl (test code = Glucose Lvl) 94 70-99 [facility] SZCGB2097-50-47 08:17:00 Test Item Value Reference Range Interpretation Comments BUN (test code = BUN) 27 7-22 [place] 006531-08-11 08:17:00 Test Item Value Reference Range Interpretation Comments Creatinine Lvl (test code = Creatinine 4.95 0.50-1.40 Lvl) [place] 006531-08-11 08:17:00 Test Item Value Reference Range Interpretation Comments Sodium Lvl (test code = Sodium Lvl) 136 135-145 [place] 006531-08-11 08:17:00 Test Item Value Reference Range Interpretation Comments Potassium Lvl (test code = Potassium 3.9 3.5-5.1 Lvl) [place] 006531-08-11 08:17:00 Test Item Value Reference Range Interpretation Comments Chloride Lvl (test code = Chloride Lvl) 103 95-109 [place] 006531-08-11 08:17:00 Test Item Value Reference Range Interpretation Comments CO2 (test code = CO2) 30 24-32 [place] 006531-08-11 08:17:00 Test Item Value Reference Range Interpretation Comments AGAP (test code = AGAP) 6.9 10.0-20.0 [place] 006531-08-11 08:17:00 Test Item Value Reference Range Interpretation Comments Calcium Lvl (test code = Calcium Lvl) 8.5 8.5-10.5 [place] 006531-08-11 08:17:00 Test Item Value Reference Range Interpretation Comments eGFR (test code = eGFR) 10 [place] 006531-08-11 08:17:00 Test Item Value Reference Range Interpretation Comments Phosphorus (test code = Phosphorus) 3.0 2.5-4.5 [place] 006531-08-11 08:17:00 Test Item Value Reference Range Interpretation Comments Magnesium Lvl (test code = Magnesium 2.4 1.8-2.4 Lvl) [place] 679791-08-11 08:17:00 Test Item Value Reference Range Interpretation Comments WBC (test code = WBC) 2.3 3.7-10.4 [place] 679791-08-11 08:17:00 Test Item Value Reference Range Interpretation Comments RBC (test code = RBC) 2.65 4.20-5.40 [place] 679791-08-11 08:17:00 Test Item Value Reference Range Interpretation Comments Hgb (test code = Hgb) 7.9 12.0-16.0 [place] 679791-08-11 08:17:00 Test Item Value Reference Range Interpretation Comments Hct (test code = Hct) 24.0 36.0-48.0 [place] 679791-08-11 08:17:00 Test Item Value Reference Range Interpretation Comments MCV (test code = MCV) 90.6 80.0-98.0 [place] 679791-08-11 08:17:00 Test Item Value Reference Range Interpretation Comments MCH (test code = MCH) 29.7 pg 27.0-31.0 [place] 679791-08-11 08:17:00 Test Item Value Reference Range Interpretation Comments MCHC (test code = MCHC) 32.7 32.0-36.0 [place] 679791-08-11 08:17:00 Test Item Value Reference Range Interpretation Comments RDW (test code = RDW) 19.1 11.5-14.5 [place] 679791-08-11 08:17:00 Test Item Value Reference Range Interpretation Comments Platelet (test code = Platelet) 71 133-450 [facility]anoVxjirnnKPUVWOFMMM6575-59-84 08:17:00 Test Item Value Reference Range Interpretation Comments MPV (test code = MPV) 9.9 7.4-10.4 [place] 679791-08-11 08:17:00 Test Item Value Reference Range Interpretation Comments Segs (test code = Segs) 56.1 45.0-75.0 [place] 679791-08-11 08:17:00 Test Item Value Reference Range Interpretation Comments Lymphocytes (test code = Lymphocytes) 28.9 20.0-40.0 [place] [address]-08-11 08:17:00 Test Item Value Reference Range Interpretation Comments Monocytes (test code = Monocytes) 8.1 2.0-12.0 [place] [address]-08-11 08:17:00 Test Item Value Reference Range Interpretation Comments Eosinophils (test code = 5.9 See_Comment [A utomated message] The Eosinophils) system which ge nerated this result tra nsmitted reference range : <=4.0. The reference r leo was not used to int erpret this result as normal/abnormal . [place] 679791-08-11 08:17:00 Test Item Value Reference Range Interpretation Comments Basophils (test code = 1.0 See_Comment [Aut omated message] The Basophils) system which ge nerated this result tra nsmitted reference range : <=1.0. The reference r leo was not used to int erpret this result as normal/abnormal . [place] 679791-08-11 08:17:00 Test Item Value Reference Range Interpretation Comments Neutrophils # (test code = Neutrophils 1.3 1.5-8.1 #) [place] 679791-08-11 08:17:00 Test Item Value Reference Range Interpretation Comments Lymphocytes # (test code = Lymphocytes 0.7 1.0-5.5 #) [place] 679791-08-11 08:17:00 Test Item Value Reference Range Interpretation Comments Monocytes # (test code 0.2 See_Comment [Aut omated message] The = Monocytes #) system which generated this result tra nsmitted reference range : <=0.8. The reference r leo was not used to int erpret this result as normal/abnormal . [place] 679791-08-11 08:17:00 Test Item Value Reference Range Interpretation Comments Eosinophils # (test code 0.1 See_Comment [A utomated message] The = Eosinophils #) system whic h generated this result tra nsmitted reference range : <=0.5. The reference r leo was not used to int erpret this result as normal/abnormal . [facility] [id number] 09:30:00 Test Item Value Reference Range Interpretation Comments Glucose Lvl (test code = Glucose Lvl) 61 70-99 [facility] [id number] 09:30:00 Test Item Value Reference Range Interpretation Comments BUN (test code = BUN) 13 7-22 [facility] [id number] 09:30:00 Test Item Value Reference Range Interpretation Comments Creatinine Lvl (test code = Creatinine 3.71 0.50-1.40 Lvl) [place] 006531-08-10 09:30:00 Test Item Value Reference Range Interpretation Comments Sodium Lvl (test code = Sodium Lvl) 136 135-145 [place] 006531-08-10 09:30:00 Test Item Value Reference Range Interpretation Comments Potassium Lvl (test code = Potassium 4.3 3.5-5.1 Lvl) [place] 006531-08-10 09:30:00 Test Item Value Reference Range Interpretation Comments Chloride Lvl (test code = Chloride Lvl) 103 95-109 [place] 006531-08-10 09:30:00 Test Item Value Reference Range Interpretation Comments CO2 (test code = CO2) 27 24-32 [place] 728[address]-08-10 09:30:00 Test Item Value Reference Range Interpretation Comments Calcium Lvl (test code = Calcium Lvl) 7.9 8.5-10.5 [place] 72847-08-10 09:30:00 Test Item Value Reference Range Interpretation Comments AGAP (test code = AGAP) 10.3 10.0-20.0 [place] 006531-08-10 09:30:00 Test Item Value Reference Range Interpretation Comments eGFR (test code = eGFR) 15 [place] 006531-08-10 09:30:00 Test Item Value Reference Range Interpretation Comments Magnesium Lvl (test code = Magnesium 2.3 1.8-2.4 Lvl) [place] 006531-08-10 09:30:00 Test Item Value Reference Range Interpretation Comments Phosphorus (test code = Phosphorus) 3.1 2.5-4.5 [place] 679791-08-10 09:30:00 Test Item Value Reference Range Interpretation Comments Segs (test code = Segs) 61.5 45.0-75.0 [place] 679791-08-10 09:30:00 Test Item Value Reference Range Interpretation Comments Lymphocytes (test code = Lymphocytes) 24.6 20.0-40.0 [place] [address]-08-10 09:30:00 Test Item Value Reference Range Interpretation Comments Monocytes (test code = Monocytes) 7.4 2.0-12.0 [place] [address]-08-10 09:30:00 Test Item Value Reference Range Interpretation Comments Eosinophils (test code = 5.5 See_Comment [A utomated message] The Eosinophils) system which ge nerated this result tra nsmitted reference range : <=4.0. The reference r leo was not used to int erpret this result as normal/abnormal . [facility]anoNjzbofwAHGWSKHHZQ7114-36-49 09:30:00 Test Item Value Reference Range Interpretation Comments Basophils (test code = 1.0 See_Comment [Aut omated message] The Basophils) system which ge nerated this result tra nsmitted reference range : <=1.0. The reference r leo was not used to int erpret this result as normal/abnormal . [place] 679791-08-10 09:30:00 Test Item Value Reference Range Interpretation Comments Neutrophils # (test code = Neutrophils 1.6 1.5-8.1 #) [facility]anoDdrgcdeBBEUBLNAIF6098-79-12 09:30:00 Test Item Value Reference Range Interpretation Comments Lymphocytes # (test code = Lymphocytes 0.6 1.0-5.5 #) [facility]anoUieidqeYIGQXVMRZA4686-46-33 09:30:00 Test Item Value Reference Range Interpretation Comments Monocytes # (test code 0.2 See_Comment [Aut omated message] The = Monocytes #) system which generated this result tra nsmitted reference range : <=0.8. The reference r leo was not used to int erpret this result as normal/abnormal . [facility]anoFkjakcuQTLUCUZQBK9600-90-86 09:30:00 Test Item Value Reference Range Interpretation Comments Eosinophils # (test code 0.1 See_Comment [A utomated message] The = Eosinophils #) system whic h generated this result tra nsmitted reference range : <=0.5. The reference r leo was not used to int erpret this result as normal/abnormal . [facility]anoYtozdlsVFXFHNOWEX5913-20-13 09:30:00 Test Item Value Reference Range Interpretation [...] studies, if clinically indicated, are recommended. CPT: 25468 [facility]anoQyscchsKUGJGXKUXD5485-56-65 09:30:00 Test Item Value Reference Range Interpretation Comments WBC (test code = WBC) 2.5 3.7-10.4 [facility]anoKkkbyozXDQBNPCTZL7689-76-07 09:30:00 Test Item Value Reference Range Interpretation Comments RBC (test code = RBC) 2.68 4.20-5.40 [place] 679791-08-10 09:30:00 Test Item Value Reference Range Interpretation Comments Hgb (test code = Hgb) 8.2 12.0-16.0 [place] 679791-08-10 09:30:00 Test Item Value Reference Range Interpretation Comments Hct (test code = Hct) 24.3 36.0-48.0 [place] 679791-08-10 09:30:00 Test Item Value Reference Range Interpretation Comments MCV (test code = MCV) 90.9 80.0-98.0 [place] 679791-08-10 09:30:00 Test Item Value Reference Range Interpretation Comments MCH (test code = MCH) 30.5 pg 27.0-31.0 [place] 679791-08-10 09:30:00 Test Item Value Reference Range Interpretation Comments MCHC (test code = MCHC) 33.6 32.0-36.0 [facility]anoQoarbeyTRFDHZNVVN1337-63-72 09:30:00 Test Item Value Reference Range Interpretation Comments RDW (test code = RDW) 19.4 11.5-14.5 [place] 679791-08-10 09:30:00 Test Item Value Reference Range Interpretation Comments Platelet (test code = Platelet) 70 133-450 [facility] PlanoDaldtxuRRSPRSNQTS1547-58-84 09:30:00 Test Item Value Reference Range Interpretation Comments MPV (test code = MPV) 10.7 7.4-10.4 [facility]2021-08-10 09:30:00 Test Item Value Reference Range Interpretation Comments Glucose Lvl (test code = Glucose Lvl) 61 70-99 [place] 006531-08-10 09:30:00 Test Item Value Reference Range Interpretation Comments BUN (test code = BUN) 13 7-22 [place] 006531-08-10 09:30:00 Test Item Value Reference Range Interpretation Comments Creatinine Lvl (test code = Creatinine 3.71 0.50-1.40 Lvl) [place] 006531-08-10 09:30:00 Test Item Value Reference Range Interpretation Comments Sodium Lvl (test code = Sodium Lvl) 136 135-145 [place] 006531-08-10 09:30:00 Test Item Value Reference Range Interpretation Comments Potassium Lvl (test code = Potassium 4.3 3.5-5.1 Lvl) [place] 006531-08-10 09:30:00 Test Item Value Reference Range Interpretation Comments Chloride Lvl (test code = Chloride Lvl) 103 95-109 [place] 006531-08-10 09:30:00 Test Item Value Reference Range Interpretation Comments CO2 (test code = CO2) 27 24-32 [place] 006531-08-10 09:30:00 Test Item Value Reference Range Interpretation Comments Calcium Lvl (test code = Calcium Lvl) 7.9 8.5-10.5 [place] 006531-08-10 09:30:00 Test Item Value Reference Range Interpretation Comments AGAP (test code = AGAP) 10.3 10.0-20.0 [place] 006531-08-10 09:30:00 Test Item Value Reference Range Interpretation Comments eGFR (test code = eGFR) 15 [facility]2021-08-10 09:30:00 Test Item Value Reference Range Interpretation Comments Magnesium Lvl (test code = Magnesium 2.3 1.8-2.4 Lvl) [place] 006531-08-10 09:30:00 Test Item Value Reference Range Interpretation Comments Phosphorus (test code = Phosphorus) 3.1 2.5-4.5 [place] 679791-08-10 09:30:00 Test Item Value Reference Range Interpretation Comments Segs (test code = Segs) 61.5 45.0-75.0 [place] 679791-08-10 09:30:00 Test Item Value Reference Range Interpretation Comments Lymphocytes (test code = Lymphocytes) 24.6 20.0-40.0 [place] 679791-08-10 09:30:00 Test Item Value Reference Range Interpretation Comments Monocytes (test code = Monocytes) 7.4 2.0-12.0 [place] 679791-08-10 09:30:00 Test Item Value Reference Range Interpretation Comments Eosinophils (test code = 5.5 See_Comment [A utomated message] The Eosinophils) system which ge nerated this result tra nsmitted reference range : <=4.0. The reference r leo was not used to int erpret this result as normal/abnormal . [place] [address]-08-10 09:30:00 Test Item Value Reference Range Interpretation Comments Basophils (test code = 1.0 See_Comment [Aut omated message] The Basophils) system which ge nerated this result tra nsmitted reference range : <=1.0. The reference r leo was not used to int erpret this result as normal/abnormal . [place] [address]-08-10 09:30:00 Test Item Value Reference Range Interpretation Comments Neutrophils # (test code = Neutrophils 1.6 1.5-8.1 #) [place] 679791-08-10 09:30:00 Test Item Value Reference Range Interpretation Comments Lymphocytes # (test code = Lymphocytes 0.6 1.0-5.5 #) [place] [address]-08-10 09:30:00 Test Item Value Reference Range Interpretation Comments Monocytes # (test code 0.2 See_Comment [Aut omated message] The = Monocytes #) system which generated this result tra nsmitted reference range : <=0.8. The reference r leo was not used to int erpret this result as normal/abnormal . [place] 679791-08-10 09:30:00 Test Item Value Reference Range Interpretation Comments Eosinophils # (test code 0.1 See_Comment [A utomated message] The = Eosinophils #) system whic h generated this result tra nsmitted reference range : <=0.5. The reference r leo was not used to int erpret this result as normal/abnormal . [place] 679791-08-10 09:30:00 Test Item Value Reference Range Interpretation [...] studies, if clinically indicated, are recommended. CPT: 40324 [facility]anoAqcxupyONYRBGNURK2406-00-64 09:30:00 Test Item Value Reference Range Interpretation Comments WBC (test code = WBC) 2.5 3.7-10.4 [facility]anoBflizfwVBMMSQJMCG0357-99-30 09:30:00 Test Item Value Reference Range Interpretation Comments RBC (test code = RBC) 2.68 4.20-5.40 [place] 679791-08-10 09:30:00 Test Item Value Reference Range Interpretation Comments Hgb (test code = Hgb) 8.2 12.0-16.0 [place] 679791-08-10 09:30:00 Test Item Value Reference Range Interpretation Comments Hct (test code = Hct) 24.3 36.0-48.0 [facility]anoEjrychlTRVVBFHWQO5614-05-42 09:30:00 Test Item Value Reference Range Interpretation Comments MCV (test code = MCV) 90.9 80.0-98.0 [place] 679791-08-10 09:30:00 Test Item Value Reference Range Interpretation Comments MCH (test code = MCH) 30.5 pg 27.0-31.0 [facility]anoKroqptlPYROPLKPPT7749-80-26 09:30:00 Test Item Value Reference Range Interpretation Comments MCHC (test code = MCHC) 33.6 32.0-36.0 [facility]anoVodikceZSAVSCXZEC2796-22-35 09:30:00 Test Item Value Reference Range Interpretation Comments RDW (test code = RDW) 19.4 11.5-14.5 [place] 679791-08-10 09:30:00 Test Item Value Reference Range Interpretation Comments Platelet (test code = Platelet) 70 133-450 [place] 679791-08-10 09:30:00 Test Item Value Reference Range Interpretation Comments MPV (test code = MPV) 10.7 7.4-10.4 [facility]2021-08-10 09:30:00 Test Item Value Reference Range Interpretation Comments Glucose Lvl (test code = Glucose Lvl) 61 70-99 [place] 006531-08-10 09:30:00 Test Item Value Reference Range Interpretation Comments BUN (test code = BUN) 13 7-22 [place] 006531-08-10 09:30:00 Test Item Value Reference Range Interpretation Comments Creatinine Lvl (test code = Creatinine 3.71 0.50-1.40 Lvl) [place] 006531-08-10 09:30:00 Test Item Value Reference Range Interpretation Comments Sodium Lvl (test code = Sodium Lvl) 136 135-145 [place] 006531-08-10 09:30:00 Test Item Value Reference Range Interpretation Comments Potassium Lvl (test code = Potassium 4.3 3.5-5.1 Lvl) [place] 006531-08-10 09:30:00 Test Item Value Reference Range Interpretation Comments Chloride Lvl (test code = Chloride Lvl) 103 95-109 [place] 006531-08-10 09:30:00 Test Item Value Reference Range Interpretation Comments CO2 (test code = CO2) 27 24-32 [place] 006531-08-10 09:30:00 Test Item Value Reference Range Interpretation Comments Calcium Lvl (test code = Calcium Lvl) 7.9 8.5-10.5 [place] 006531-08-10 09:30:00 Test Item Value Reference Range Interpretation Comments AGAP (test code = AGAP) 10.3 10.0-20.0 [place] 006531-08-10 09:30:00 Test Item Value Reference Range Interpretation Comments eGFR (test code = eGFR) 15 [place] 006531-08-10 09:30:00 Test Item Value Reference Range Interpretation Comments Magnesium Lvl (test code = Magnesium 2.3 1.8-2.4 Lvl) [place] 006531-08-10 09:30:00 Test Item Value Reference Range Interpretation Comments Phosphorus (test code = Phosphorus) 3.1 2.5-4.5 [place] 679791-08-10 09:30:00 Test Item Value Reference Range Interpretation Comments Segs (test code = Segs) 61.5 45.0-75.0 [place] 679791-08-10 09:30:00 Test Item Value Reference Range Interpretation Comments Lymphocytes (test code = Lymphocytes) 24.6 20.0-40.0 [facility]zpq[facility]XGON[facility]WNPC2259-91-11 09:30:00 Test Item Value Reference Range Interpretation Comments Monocytes (test code = Monocytes) 7.4 2.0-12.0 [facility]anoUoeitlnMDLFYMHEAT5340-00-84 09:30:00 Test Item Value Reference Range Interpretation Comments Eosinophils (test code = 5.5 See_Comment [A utomated message] The Eosinophils) system which ge nerated this result tra nsmitted reference range : <=4.0. The reference r leo was not used to int erpret this result as normal/abnormal . [facility]anoNoyeecuYZHUAPULPD2768-41-87 09:30:00 Test Item Value Reference Range Interpretation Comments Basophils (test code = 1.0 See_Comment [Aut omated message] The Basophils) system which ge nerated this result tra nsmitted reference range : <=1.0. The reference r leo was not used to int erpret this result as normal/abnormal . [facility]anoPdsbsgfUWQBFBISSP9190-30-32 09:30:00 Test Item Value Reference Range Interpretation Comments Neutrophils # (test code = Neutrophils 1.6 1.5-8.1 #) [facility]anoDkvfawnZIFNESRTHX0486-68-63 09:30:00 Test Item Value Reference Range Interpretation Comments Lymphocytes # (test code = Lymphocytes 0.6 1.0-5.5 #) [facility]anoWvvszrdMVXHSHZAAH6169-64-74 09:30:00 Test Item Value Reference Range Interpretation Comments Monocytes # (test code 0.2 See_Comment [Aut omated message] The = Monocytes #) system which generated this result tra nsmitted reference range : <=0.8. The reference r leo was not used to int erpret this result as normal/abnormal . [facility]anoKxkoyltDHWRUPUIIB1401-50-50 09:30:00 Test Item Value Reference Range Interpretation Comments Eosinophils # (test code 0.1 See_Comment [A utomated message] The = Eosinophils #) system whic h generated this result tra nsmitted reference range : <=0.5. The reference r leo was not used to int erpret this result as normal/abnormal . [facility]anoThqgndqBXDJVLKSKL6654-92-55 09:30:00 Test Item Value Reference Range Interpretation [...] studies, if clinically indicated, are recommended. CPT: 73338 [facility]anoWrpiclpNJNBEBHDEZ3961-20-95 09:30:00 Test Item Value Reference Range Interpretation Comments WBC (test code = WBC) 2.5 3.7-10.4 [place] [address]-08-10 09:30:00 Test Item Value Reference Range Interpretation Comments RBC (test code = RBC) 2.68 4.20-5.40 [place] [address]-08-10 09:30:00 Test Item Value Reference Range Interpretation Comments Hgb (test code = Hgb) 8.2 12.0-16.0 [place] [address]-08-10 09:30:00 Test Item Value Reference Range Interpretation Comments Hct (test code = Hct) 24.3 36.0-48.0 [place] 679791-08-10 09:30:00 Test Item Value Reference Range Interpretation Comments MCV (test code = MCV) 90.9 80.0-98.0 [place] [address]-08-10 09:30:00 Test Item Value Reference Range Interpretation Comments MCH (test code = MCH) 30.5 pg 27.0-31.0 [place] [address]-08-10 09:30:00 Test Item Value Reference Range Interpretation Comments MCHC (test code = MCHC) 33.6 32.0-36.0 [facility]anoNbyioupPOIMTJSJUY2370-44-55 09:30:00 Test Item Value Reference Range Interpretation Comments RDW (test code = RDW) 19.4 11.5-14.5 [place] [address]-08-10 09:30:00 Test Item Value Reference Range Interpretation Comments Platelet (test code = Platelet) 70 133-450 [place] 679791-08-10 09:30:00 Test Item Value Reference Range Interpretation Comments MPV (test code = MPV) 10.7 7.4-10.4 [place] 006531-08-10 09:30:00 Test Item Value Reference Range Interpretation Comments Glucose Lvl (test code = Glucose Lvl) 61 70-99 [place] 006531-08-10 09:30:00 Test Item Value Reference Range Interpretation Comments BUN (test code = BUN) 13 7-22 [place] 006531-08-10 09:30:00 Test Item Value Reference Range Interpretation Comments Creatinine Lvl (test code = Creatinine 3.71 0.50-1.40 Lvl) [place] 006531-08-10 09:30:00 Test Item Value Reference Range Interpretation Comments Sodium Lvl (test code = Sodium Lvl) 136 135-145 [place] 006531-08-10 09:30:00 Test Item Value Reference Range Interpretation Comments Potassium Lvl (test code = Potassium 4.3 3.5-5.1 Lvl) [facility]2021-08-10 09:30:00 Test Item Value Reference Range Interpretation Comments Chloride Lvl (test code = Chloride Lvl) 103 95-109 [place] 006531-08-10 09:30:00 Test Item Value Reference Range Interpretation Comments CO2 (test code = CO2) 27 24-32 [place] 006531-08-10 09:30:00 Test Item Value Reference Range Interpretation Comments Calcium Lvl (test code = Calcium Lvl) 7.9 8.5-10.5 [facility]2021-08-10 09:30:00 Test Item Value Reference Range Interpretation Comments AGAP (test code = AGAP) 10.3 10.0-20.0 [place] 006531-08-10 09:30:00 Test Item Value Reference Range Interpretation Comments eGFR (test code = eGFR) 15 [place] 006531-08-10 09:30:00 Test Item Value Reference Range Interpretation Comments Magnesium Lvl (test code = Magnesium 2.3 1.8-2.4 Lvl) [place] 006531-08-10 09:30:00 Test Item Value Reference Range Interpretation Comments Phosphorus (test code = Phosphorus) 3.1 2.5-4.5 [facility]fr[facility]ooePPZJWBFHJE7185-55-86 09:30:00 Test Item Value Reference Range Interpretation Comments Segs (test code = Segs) 61.5 45.0-75.0 [place] 679791-08-10 09:30:00 Test Item Value Reference Range Interpretation Comments Lymphocytes (test code = Lymphocytes) 24.6 20.0-40.0 [place] 679791-08-10 09:30:00 Test Item Value Reference Range Interpretation Comments Monocytes (test code = Monocytes) 7.4 2.0-12.0 [place] 679791-08-10 09:30:00 Test Item Value Reference Range Interpretation Comments Eosinophils (test code = 5.5 See_Comment [A utomated message] The Eosinophils) system which ge nerated this result tra nsmitted reference range : <=4.0. The reference r leo was not used to int erpret this result as normal/abnormal . [place] 679791-08-10 09:30:00 Test Item Value Reference Range Interpretation Comments Basophils (test code = 1.0 See_Comment [Aut omated message] The Basophils) system which ge nerated this result tra nsmitted reference range : <=1.0. The reference r leo was not used to int erpret this result as normal/abnormal . [facility]anoQkzngylXSVUOQVYXC4541-91-71 09:30:00 Test Item Value Reference Range Interpretation Comments Neutrophils # (test code = Neutrophils 1.6 1.5-8.1 #) [facility]anoVhgbnxcFZOAAKYEYV9650-67-70 09:30:00 Test Item Value Reference Range Interpretation Comments Lymphocytes # (test code = Lymphocytes 0.6 1.0-5.5 #) [place] 679791-08-10 09:30:00 Test Item Value Reference Range Interpretation Comments Monocytes # (test code 0.2 See_Comment [Aut omated message] The = Monocytes #) system which generated this result tra nsmitted reference range : <=0.8. The reference r leo was not used to int erpret this result as normal/abnormal . [facility]anoCjtzysbFUHWBMBYJY8045-75-51 09:30:00 Test Item Value Reference Range Interpretation Comments Eosinophils # (test code 0.1 See_Comment [A utomated message] The = Eosinophils #) system [facility] h generated this result tra nsmitted reference range : <=0.5. The reference r leo was not used to int erpret this result as normal/abnormal . [facility]anoFqumxpbXPURNTFJZP0285-51-95 09:30:00 Test Item Value Reference Range Interpretation [...] studies, if clinically indicated, are recommended. CPT: 53212 [facility]anoTwmohooQZSSLPTZJA4298-45-39 09:30:00 Test Item Value Reference Range Interpretation Comments WBC (test code = WBC) 2.5 3.7-10.4 [place] 679791-08-10 09:30:00 Test Item Value Reference Range Interpretation Comments RBC (test code = RBC) 2.68 4.20-5.40 [place] 679791-08-10 09:30:00 Test Item Value Reference Range Interpretation Comments Hgb (test code = Hgb) 8.2 12.0-16.0 [place] [address]-08-10 09:30:00 Test Item Value Reference Range Interpretation Comments Hct (test code = Hct) 24.3 36.0-48.0 [place] 679791-08-10 09:30:00 Test Item Value Reference Range Interpretation Comments MCV (test code = MCV) 90.9 80.0-98.0 [place] 679791-08-10 09:30:00 Test Item Value Reference Range Interpretation Comments MCH (test code = MCH) 30.5 pg 27.0-31.0 [place] [address]-08-10 09:30:00 Test Item Value Reference Range Interpretation Comments MCHC (test code = MCHC) 33.6 32.0-36.0 [place] [address]-08-10 09:30:00 Test Item Value Reference Range Interpretation Comments RDW (test code = RDW) 19.4 11.5-14.5 [place] [address]-08-10 09:30:00 Test Item Value Reference Range Interpretation Comments Platelet (test code = Platelet) 70 133-450 [place] 679791-08-10 09:30:00 Test Item Value Reference Range Interpretation Comments MPV (test code = MPV) 10.7 7.4-10.4 [place] 006531-08-10 09:30:00 Test Item Value Reference Range Interpretation Comments Glucose Lvl (test code = Glucose Lvl) 61 70-99 [place] 006531-08-10 09:30:00 Test Item Value Reference Range Interpretation Comments BUN (test code = BUN) 13 7-22 [place] 006531-08-10 09:30:00 Test Item Value Reference Range Interpretation Comments Creatinine Lvl (test code = Creatinine 3.71 0.50-1.40 Lvl) [place] 006531-08-10 09:30:00 Test Item Value Reference Range Interpretation Comments Sodium Lvl (test code = Sodium Lvl) 136 135-145 [place] 006531-08-10 09:30:00 Test Item Value Reference Range Interpretation Comments Potassium Lvl (test code = Potassium 4.3 3.5-5.1 Lvl) [place] 006531-08-10 09:30:00 Test Item Value Reference Range Interpretation Comments Chloride Lvl (test code = Chloride Lvl) 103 95-109 [place] 006531-08-10 09:30:00 Test Item Value Reference Range Interpretation Comments CO2 (test code = CO2) 27 24-32 [place] 006531-08-10 09:30:00 Test Item Value Reference Range Interpretation Comments Calcium Lvl (test code = Calcium Lvl) 7.9 8.5-10.5 [place] 006531-08-10 09:30:00 Test Item Value Reference Range Interpretation Comments AGAP (test code = AGAP) 10.3 10.0-20.0 [place] 006531-08-10 09:30:00 Test Item Value Reference Range Interpretation Comments eGFR (test code = eGFR) 15 [facility]2021-08-10 09:30:00 Test Item Value Reference Range Interpretation Comments Magnesium Lvl (test code = Magnesium 2.3 1.8-2.4 Lvl) [facility]2021-08-10 09:30:00 Test Item Value Reference Range Interpretation Comments Phosphorus (test code = Phosphorus) 3.1 2.5-4.5 [place] 679791-08-10 09:30:00 Test Item Value Reference Range Interpretation Comments Segs (test code = Segs) 61.5 45.0-75.0 [place] 679791-08-10 09:30:00 Test Item Value Reference Range Interpretation Comments Lymphocytes (test code = Lymphocytes) 24.6 20.0-40.0 [place] 679791-08-10 09:30:00 Test Item Value Reference Range Interpretation Comments Monocytes (test code = Monocytes) 7.4 2.0-12.0 [place] 679791-08-10 09:30:00 Test Item Value Reference Range Interpretation Comments Eosinophils (test code = 5.5 See_Comment [A utomated message] The Eosinophils) system which ge nerated this result tra nsmitted reference range : <=4.0. The reference r leo was not used to int erpret this result as normal/abnormal . [facility]anoTzqdafyCYDEDTUYXL7559-31-47 09:30:00 Test Item Value Reference Range Interpretation Comments Basophils (test code = 1.0 See_Comment [Aut omated message] The Basophils) system which ge nerated this result tra nsmitted reference range : <=1.0. The reference r leo was not used to int erpret this result as normal/abnormal . [facility]anoOhyaumgUHOGNENVMX1246-27-30 09:30:00 Test Item Value Reference Range Interpretation Comments Neutrophils # (test code = Neutrophils 1.6 1.5-8.1 #) [place] 679791-08-10 09:30:00 Test Item Value Reference Range Interpretation Comments Lymphocytes # (test code = Lymphocytes 0.6 1.0-5.5 #) [place] 679791-08-10 09:30:00 Test Item Value Reference Range Interpretation Comments Monocytes # (test code 0.2 See_Comment [Aut omated message] The = Monocytes #) system which generated this result tra nsmitted reference range : <=0.8. The reference r leo was not used to int erpret this result as normal/abnormal . [place] 679791-08-10 09:30:00 Test Item Value Reference Range Interpretation Comments Eosinophils # (test code 0.1 See_Comment [A utomated message] The = Eosinophils #) system [employer] generated this result tra nsmitted reference range : <=0.5. The reference r leo was not used to int erpret this result as normal/abnormal . [facility]anoDtmcmurAJROFIBNXS5205-57-37 09:30:00 Test Item Value Reference Range Interpretation [...] studies, if clinically indicated, are recommended. CPT: 70498 [facility]anoHnvuqwqKCKTANSDMZ3298-38-43 09:30:00 Test Item Value Reference Range Interpretation Comments WBC (test code = WBC) 2.5 3.7-10.4 [place] 679791-08-10 09:30:00 Test Item Value Reference Range Interpretation Comments RBC (test code = RBC) 2.68 4.20-5.40 [place] 679791-08-10 09:30:00 Test Item Value Reference Range Interpretation Comments Hgb (test code = Hgb) 8.2 12.0-16.0 [place] 679791-08-10 09:30:00 Test Item Value Reference Range Interpretation Comments Hct (test code = Hct) 24.3 36.0-48.0 [place] [address]-08-10 09:30:00 Test Item Value Reference Range Interpretation Comments MCV (test code = MCV) 90.9 80.0-98.0 [place] [address]-08-10 09:30:00 Test Item Value Reference Range Interpretation Comments MCH (test code = MCH) 30.5 pg 27.0-31.0 [place] [address]-08-10 09:30:00 Test Item Value Reference Range Interpretation Comments MCHC (test code = MCHC) 33.6 32.0-36.0 [place] 679791-08-10 09:30:00 Test Item Value Reference Range Interpretation Comments RDW (test code = RDW) 19.4 11.5-14.5 [place] 679791-08-10 09:30:00 Test Item Value Reference Range Interpretation Comments Platelet (test code = Platelet) 70 133-450 [place] 679791-08-10 09:30:00 Test Item Value Reference Range Interpretation Comments MPV (test code = MPV) 10.7 7.4-10.4 [place] 006531-08-09 05:10:00 Test Item Value Reference Range Interpretation Comments Glucose Lvl (test code = Glucose Lvl) 69 70-99 [place] 006531-08-09 05:10:00 Test Item Value Reference Range Interpretation Comments BUN (test code = BUN) 29 7-22 [place] 006531-08-09 05:10:00 Test Item Value Reference Range Interpretation Comments Creatinine Lvl (test code = Creatinine 5.14 0.50-1.40 Lvl) [place] 006531-08-09 05:10:00 Test Item Value Reference Range Interpretation Comments Sodium Lvl (test code = Sodium Lvl) 134 135-145 [place] 006531-08-09 05:10:00 Test Item Value Reference Range Interpretation Comments Potassium Lvl (test code = Potassium 5.1 3.5-5.1 Lvl) [facility]2021-08-09 05:10:00 Test Item Value Reference Range Interpretation Comments Chloride Lvl (test code = Chloride Lvl) 98 95-109 [place] 006531-08-09 05:10:00 Test Item Value Reference Range Interpretation Comments CO2 (test code = CO2) 29 24-32 [place] 006531-08-09 05:10:00 Test Item Value Reference Range Interpretation Comments Calcium Lvl (test code = Calcium Lvl) 7.6 8.5-10.5 [place] 006531-08-09 05:10:00 Test Item Value Reference Range Interpretation Comments AGAP (test code = AGAP) 12.1 10.0-20.0 [place] 006531-08-09 05:10:00 Test Item Value Reference Range Interpretation Comments eGFR (test code = eGFR) 10 [facility]2021-08-09 05:10:00 Test Item Value Reference Range Interpretation Comments Magnesium Lvl (test code = Magnesium 2.3 1.8-2.4 Lvl) [facility]2021-08-09 05:10:00 Test Item Value Reference Range Interpretation Comments Phosphorus (test code = Phosphorus) 5.0 2.5-4.5 [facility]VfsyjgsDRDGMJFEAK2420-83-34 05:10:00 Test Item Value Reference Range Interpretation Comments WBC (test code = WBC) 2.7 3.7-10.4 [facility]anoIbqyxnyAMKZRQICOG4285-29-34 05:10:00 Test Item Value Reference Range Interpretation Comments RBC (test code = RBC) 2.80 4.20-5.40 [place] 679791-08-09 05:10:00 Test Item Value Reference Range Interpretation Comments Hgb (test code = Hgb) 8.5 12.0-16.0 [place] 679791-08-09 05:10:00 Test Item Value Reference Range Interpretation Comments Hct (test code = Hct) 25.7 36.0-48.0 [facility]anoXhpbptlCLJDGPBDQQ2136-84-77 05:10:00 Test Item Value Reference Range Interpretation Comments MCV (test code = MCV) 91.7 80.0-98.0 [facility]anoOwcnhkkQOTGCRZETG2392-65-95 05:10:00 Test Item Value Reference Range Interpretation Comments MCH (test code = MCH) 30.4 pg 27.0-31.0 [facility]anoSibqthuMNVGPEQOIJ9521-64-24 05:10:00 Test Item Value Reference Range Interpretation Comments MCHC (test code = MCHC) 33.1 32.0-36.0 [facility]anoBcngwzoDQFVXAIVCD3537-98-60 05:10:00 Test Item Value Reference Range Interpretation Comments RDW (test code = RDW) 19.2 11.5-14.5 [place] 679791-08-09 05:10:00 Test Item Value Reference Range Interpretation Comments Platelet (test code = Platelet) 72 133-450 [facility]anoPpsjdjqLDBATBDQTD8823-61-67 05:10:00 Test Item Value Reference Range Interpretation Comments MPV (test code = MPV) 9.9 7.4-10.4 [place] [address]-08-09 05:10:00 Test Item Value Reference Range Interpretation Comments Segs (test code = Segs) 72.6 45.0-75.0 [facility]anoGgbavjmKDLMPWYKZT5707-15-05 05:10:00 Test Item Value Reference Range Interpretation Comments Lymphocytes (test code = Lymphocytes) 15.9 20.0-40.0 [place] 679791-08-09 05:10:00 Test Item Value Reference Range Interpretation Comments Monocytes (test code = Monocytes) 7.3 2.0-12.0 [facility]anoFdnmlsvHJDURJSYSQ1545-21-30 05:10:00 Test Item Value Reference Range Interpretation Comments Eosinophils (test code = 3.4 See_Comment [A utomated message] The Eosinophils) system which ge nerated this result tra nsmitted reference range : <=4.0. The reference r leo was not used to int erpret this result as normal/abnormal . [place] 679791-08-09 05:10:00 Test Item Value Reference Range Interpretation Comments Basophils (test code = 0.8 See_Comment [Aut omated message] The Basophils) system which ge nerated this result tra nsmitted reference range : <=1.0. The reference r leo was not used to int erpret this result as normal/abnormal . [facility]anoDhikuycRPPUURURGS1668-95-93 05:10:00 Test Item Value Reference Range Interpretation Comments Neutrophils # (test code = Neutrophils 1.9 1.5-8.1 #) [facility]anoVgzlydhQLITTABAHH5304-96-29 05:10:00 Test Item Value Reference Range Interpretation Comments Lymphocytes # (test code = Lymphocytes 0.4 1.0-5.5 #) [facility]anoQvvylmpPAUODYMZBH5655-57-75 05:10:00 Test Item Value Reference Range Interpretation Comments Monocytes # (test code 0.2 See_Comment [Aut omated message] The = Monocytes #) system which generated this result tra nsmitted reference range : <=0.8. The reference r leo was not used to int erpret this result as normal/abnormal . [place] 679791-08-09 05:10:00 Test Item Value Reference Range Interpretation Comments Eosinophils # (test code 0.1 See_Comment [A utomated message] The = Eosinophils #) system whic h generated this result tra nsmitted reference range : <=0.5. The reference r leo was not used to int erpret this result as normal/abnormal . [facility]14[facility] 05:10:00 Test Item Value Reference Range Interpretation Comments Ca Ion WB (test code = Ca Ion WB) 1.10 1.05-1.25 [facility]TRAJRI5028[facility]16[facility]45 05:10:00 Test Item Value Reference Range Interpretation Comments Ca Norm WB (test code = Ca Norm WB) 1.06 1.05-1.25 [place] 006531-08-09 05:10:00 Test Item Value Reference Range Interpretation Comments Glucose Lvl (test code = Glucose Lvl) 69 70-99 [facility]2021-08-09 05:10:00 Test Item Value Reference Range Interpretation Comments BUN (test code = BUN) 29 7-22 [facility]2021-08-09 05:10:00 Test Item Value Reference Range Interpretation Comments Creatinine Lvl (test code = Creatinine 5.14 0.50-1.40 Lvl) [facility]2021-08-09 05:10:00 Test Item Value Reference Range Interpretation Comments Sodium Lvl (test code = Sodium Lvl) 134 135-145 [facility]2021-08-09 05:10:00 Test Item Value Reference Range Interpretation Comments Potassium Lvl (test code = Potassium 5.1 3.5-5.1 Lvl) [facility]2021-08-09 05:10:00 Test Item Value Reference Range Interpretation Comments Chloride Lvl (test code = Chloride Lvl) 98 95-109 [place] 006531-08-09 05:10:00 Test Item Value Reference Range Interpretation Comments CO2 (test code = CO2) 29 24-32 [place] 006531-08-09 05:10:00 Test Item Value Reference Range Interpretation Comments Calcium Lvl (test code = Calcium Lvl) 7.6 8.5-10.5 [place] 006531-08-09 05:10:00 Test Item Value Reference Range Interpretation Comments AGAP (test code = AGAP) 12.1 10.0-20.0 [place] 006531-08-09 05:10:00 Test Item Value Reference Range Interpretation Comments eGFR (test code = eGFR) 10 [facility]2021-08-09 05:10:00 Test Item Value Reference Range Interpretation Comments Magnesium Lvl (test code = Magnesium 2.3 1.8-2.4 Lvl) [facility]2021-08-09 05:10:00 Test Item Value Reference Range Interpretation Comments Phosphorus (test code = Phosphorus) 5.0 2.5-4.5 [facility]anoLtmlfvzEQMXDWPIPO5066-59-96 05:10:00 Test Item Value Reference Range Interpretation Comments WBC (test code = WBC) 2.7 3.7-10.4 [facility]anoPswoevpXDIFYUCNSP3214-24-36 05:10:00 Test Item Value Reference Range Interpretation Comments RBC (test code = RBC) 2.80 4.20-5.40 [place] 679791-08-09 05:10:00 Test Item Value Reference Range Interpretation Comments Hgb (test code = Hgb) 8.5 12.0-16.0 [place] 679791-08-09 05:10:00 Test Item Value Reference Range Interpretation Comments Hct (test code = Hct) 25.7 36.0-48.0 [facility]anoKmxpcrsITYTAFNHBH8701-12-54 05:10:00 Test Item Value Reference Range Interpretation Comments MCV (test code = MCV) 91.7 80.0-98.0 [facility]anoVcunwqePSLJVYIRBI4245-68-80 05:10:00 Test Item Value Reference Range Interpretation Comments MCH (test code = MCH) 30.4 pg 27.0-31.0 [facility]anoHtaspeoIOJZFHAGAP0829-89-60 05:10:00 Test Item Value Reference Range Interpretation Comments MCHC (test code = MCHC) 33.1 32.0-36.0 [facility] [place]GiyzfmlZAHKEZIDRJ9556-59-97 05:10:00 Test Item Value Reference Range Interpretation Comments RDW (test code = RDW) 19.2 11.5-14.5 [place] 679791-08-09 05:10:00 Test Item Value Reference Range Interpretation Comments Platelet (test code = Platelet) 72 133-450 [facility]anoFwookjgFISYUQHHKM1319-20-29 05:10:00 Test Item Value Reference Range Interpretation Comments MPV (test code = MPV) 9.9 7.4-10.4 [place] [address]-08-09 05:10:00 Test Item Value Reference Range Interpretation Comments Segs (test code = Segs) 72.6 45.0-75.0 [facility] PlanoDfclhqrHEBLIXXTOP2609-52-72 05:10:00 Test Item Value Reference Range Interpretation Comments Lymphocytes (test code = Lymphocytes) 15.9 20.0-40.0 [place] 679791-08-09 05:10:00 Test Item Value Reference Range Interpretation Comments Monocytes (test code = Monocytes) 7.3 2.0-12.0 [facility] PlanoTldtzfsWJQLRLGATG4985-37-25 05:10:00 Test Item Value Reference Range Interpretation Comments Eosinophils (test code = 3.4 See_Comment [A utomated message] The Eosinophils) system which ge nerated this result tra nsmitted reference range : <=4.0. The reference r leo was not used to int erpret this result as normal/abnormal . [place] 679791-08-09 05:10:00 Test Item Value Reference Range Interpretation Comments Basophils (test code = 0.8 See_Comment [Aut omated message] The Basophils) system which ge nerated this result tra nsmitted reference range : <=1.0. The reference r leo was not used to int erpret this result as normal/abnormal . [facility]anoPqmcanvECWHLMCFWA2092-00-40 05:10:00 Test Item Value Reference Range Interpretation Comments Neutrophils # (test code = Neutrophils 1.9 1.5-8.1 #) [facility] PlanoDsdqxenNTISEJVNED6548-71-94 05:10:00 Test Item Value Reference Range Interpretation Comments Lymphocytes # (test code = Lymphocytes 0.4 1.0-5.5 #) [facility]anoCogcomkFWVSOPDNBB9226-90-20 05:10:00 Test Item Value Reference Range Interpretation Comments Monocytes # (test code 0.2 See_Comment [Aut omated message] The = Monocytes #) system which generated this result tra nsmitted reference range : <=0.8. The reference r leo was not used to int erpret this result as normal/abnormal . [place] 679791-08-09 05:10:00 Test Item Value Reference Range Interpretation Comments Eosinophils # (test code 0.1 See_Comment [A utomated message] The = Eosinophils #) system whic h generated this result tra nsmitted reference range : <=0.5. The reference r leo was not used to int erpret this result as normal/abnormal . [facility] 05:10:00 Test Item Value Reference Range Interpretation Comments Ca Ion WB (test code = Ca Ion WB) 1.10 1.05-1.25 [facility] FIXXHRM2117[facility]65[facility]15 05:10:00 Test Item Value Reference Range Interpretation Comments Ca Norm WB (test code = Ca Norm WB) 1.06 1.05-1.25 [place] 006531-08-09 05:10:00 Test Item Value Reference Range Interpretation Comments Glucose Lvl (test code = Glucose Lvl) 69 70-99 [facility]2021-08-09 05:10:00 Test Item Value Reference Range Interpretation Comments BUN (test code = BUN) 29 7-22 [facility]2021-08-09 05:10:00 Test Item Value Reference Range Interpretation Comments Creatinine Lvl (test code = Creatinine 5.14 0.50-1.40 Lvl) [facility]2021-08-09 05:10:00 Test Item Value Reference Range Interpretation Comments Sodium Lvl (test code = Sodium Lvl) 134 135-145 [facility]2021-08-09 05:10:00 Test Item Value Reference Range Interpretation Comments Potassium Lvl (test code = Potassium 5.1 3.5-5.1 Lvl) [facility]2021-08-09 05:10:00 Test Item Value Reference Range Interpretation Comments Chloride Lvl (test code = Chloride Lvl) 98 95-109 [place] 006531-08-09 05:10:00 Test Item Value Reference Range Interpretation Comments CO2 (test code = CO2) 29 24-32 [place] 006531-08-09 05:10:00 Test Item Value Reference Range Interpretation Comments Calcium Lvl (test code = Calcium Lvl) 7.6 8.5-10.5 [place] 006531-08-09 05:10:00 Test Item Value Reference Range Interpretation Comments AGAP (test code = AGAP) 12.1 10.0-20.0 [place] 006531-08-09 05:10:00 Test Item Value Reference Range Interpretation Comments eGFR (test code = eGFR) 10 [facility]2021-08-09 05:10:00 Test Item Value Reference Range Interpretation Comments Magnesium Lvl (test code = Magnesium 2.3 1.8-2.4 Lvl) [facility]2021-08-09 05:10:00 Test Item Value Reference Range Interpretation Comments Phosphorus (test code = Phosphorus) 5.0 2.5-4.5 [facility]anoKvehrimAMXJROCNIS6578-63-59 05:10:00 Test Item Value Reference Range Interpretation Comments WBC (test code = WBC) 2.7 3.7-10.4 [facility] PlanoJrafpvjJAMOEYUMCN2149-41-38 05:10:00 Test Item Value Reference Range Interpretation Comments RBC (test code = RBC) 2.80 4.20-5.40 [place] 679791-08-09 05:10:00 Test Item Value Reference Range Interpretation Comments Hgb (test code = Hgb) 8.5 12.0-16.0 [place] 679791-08-09 05:10:00 Test Item Value Reference Range Interpretation Comments Hct (test code = Hct) 25.7 36.0-48.0 [facility] PlanoEsjnhokIPMWJVWEMH5968-67-12 05:10:00 Test Item Value Reference Range Interpretation Comments MCV (test code = MCV) 91.7 80.0-98.0 [facility]anoSipqagxFWRCSVVCHQ1590-32-91 05:10:00 Test Item Value Reference Range Interpretation Comments MCH (test code = MCH) 30.4 pg 27.0-31.0 [facility]anoEcecqzxXVJGXWWROE1195-32-06 05:10:00 Test Item Value Reference Range Interpretation Comments MCHC (test code = MCHC) 33.1 32.0-36.0 [facility] PlanoZmsfgtdNFENDYNGNG3823-64-58 05:10:00 Test Item Value Reference Range Interpretation Comments RDW (test code = RDW) 19.2 11.5-14.5 [place] 679791-08-09 05:10:00 Test Item Value Reference Range Interpretation Comments Platelet (test code = Platelet) 72 133-450 [facility]anoTefmrkcWGIVVBYLGF8441-60-68 05:10:00 Test Item Value Reference Range Interpretation Comments MPV (test code = MPV) 9.9 7.4-10.4 [place] [address]-08-09 05:10:00 Test Item Value Reference Range Interpretation Comments Segs (test code = Segs) 72.6 45.0-75.0 [facility]anoZlkfnsmKLZVIQPQJT1129-89-98 05:10:00 Test Item Value Reference Range Interpretation Comments Lymphocytes (test code = Lymphocytes) 15.9 20.0-40.0 [place] 679791-08-09 05:10:00 Test Item Value Reference Range Interpretation Comments Monocytes (test code = Monocytes) 7.3 2.0-12.0 [facility] PlanoSphitktTCTAFVBALY4785-94-21 05:10:00 Test Item Value Reference Range Interpretation Comments Eosinophils (test code = 3.4 See_Comment [A utomated message] The Eosinophils) system which ge nerated this result tra nsmitted reference range : <=4.0. The reference r leo was not used to int erpret this result as normal/abnormal . [place] 679791-08-09 05:10:00 Test Item Value Reference Range Interpretation Comments Basophils (test code = 0.8 See_Comment [Aut omated message] The Basophils) system which ge nerated this result tra nsmitted reference range : <=1.0. The reference r leo was not used to int erpret this result as normal/abnormal . [facility] PlanoVhphlaoLGOZGXPUEG7196-71-68 05:10:00 Test Item Value Reference Range Interpretation Comments Neutrophils # (test code = Neutrophils 1.9 1.5-8.1 #) [facility] PlanoIlsavpqKENLTZXVCH5712-03-07 05:10:00 Test Item Value Reference Range Interpretation Comments Lymphocytes # (test code = Lymphocytes 0.4 1.0-5.5 #) [facility]anoWtsbujoFVIUMLMDGA8503-13-84 05:10:00 Test Item Value Reference Range Interpretation Comments Monocytes # (test code 0.2 See_Comment [Aut omated message] The = Monocytes #) system which generated this result tra nsmitted reference range : <=0.8. The reference r leo was not used to int erpret this result as normal/abnormal . [place] 679791-08-09 05:10:00 Test Item Value Reference Range Interpretation Comments Eosinophils # (test code 0.1 See_Comment [A utomated message] The = Eosinophils #) system whic h generated this result tra nsmitted reference range : <=0.5. The reference r leo was not used to int erpret this result as normal/abnormal . [facility] NIKEOJE0214-16-79 05:10:00 Test Item Value Reference Range Interpretation Comments Ca Ion WB (test code = Ca Ion WB) 1.10 1.05-1.25 [facility] CYNGBDK2308-30-02 05:10:00 Test Item Value Reference Range Interpretation Comments Ca Norm WB (test code = Ca Norm WB) 1.06 1.05-1.25 [place] 006531-08-09 05:10:00 Test Item Value Reference Range Interpretation Comments Glucose Lvl (test code = Glucose Lvl) 69 70-99 [facility]2021-08-09 05:10:00 Test Item Value Reference Range Interpretation Comments BUN (test code = BUN) 29 7-22 [facility]2021-08-09 05:10:00 Test Item Value Reference Range Interpretation Comments Creatinine Lvl (test code = Creatinine 5.14 0.50-1.40 Lvl) [facility]2021-08-09 05:10:00 Test Item Value Reference Range Interpretation Comments Sodium Lvl (test code = Sodium Lvl) 134 135-145 [facility]2021-08-09 05:10:00 Test Item Value Reference Range Interpretation Comments Potassium Lvl (test code = Potassium 5.1 3.5-5.1 Lvl) [facility]2021-08-09 05:10:00 Test Item Value Reference Range Interpretation Comments Chloride Lvl (test code = Chloride Lvl) 98 95-109 [place] 006531-08-09 05:10:00 Test Item Value Reference Range Interpretation Comments CO2 (test code = CO2) 29 24-32 [place] 006531-08-09 05:10:00 Test Item Value Reference Range Interpretation Comments Calcium Lvl (test code = Calcium Lvl) 7.6 8.5-10.5 [place] 006531-08-09 05:10:00 Test Item Value Reference Range Interpretation Comments AGAP (test code = AGAP) 12.1 10.0-20.0 [place] 006531-08-09 05:10:00 Test Item Value Reference Range Interpretation Comments eGFR (test code = eGFR) 10 [facility]2021-08-09 05:10:00 Test Item Value Reference Range Interpretation Comments Magnesium Lvl (test code = Magnesium 2.3 1.8-2.4 Lvl) [facility]2021-08-09 05:10:00 Test Item Value Reference Range Interpretation Comments Phosphorus (test code = Phosphorus) 5.0 2.5-4.5 [facility]anoJzrzylgHOBIQBKVCF9517-71-28 05:10:00 Test Item Value Reference Range Interpretation Comments WBC (test code = WBC) 2.7 3.7-10.4 [facility]anoEqgdqurRGGEHBSVZJ4898-69-46 05:10:00 Test Item Value Reference Range Interpretation Comments RBC (test code = RBC) 2.80 4.20-5.40 [place] 679791-08-09 05:10:00 Test Item Value Reference Range Interpretation Comments Hgb (test code = Hgb) 8.5 12.0-16.0 [place] 679791-08-09 05:10:00 Test Item Value Reference Range Interpretation Comments Hct (test code = Hct) 25.7 36.0-48.0 [facility]anoSdsmsjhJYZTEHFVXV1593-89-27 05:10:00 Test Item Value Reference Range Interpretation Comments MCV (test code = MCV) 91.7 80.0-98.0 [facility]anoQhibdagWIDOHJRBBQ3375-45-48 05:10:00 Test Item Value Reference Range Interpretation Comments MCH (test code = MCH) 30.4 pg 27.0-31.0 [facility]anoChucxkoDJZKRVZQEI5300-27-75 05:10:00 Test Item Value Reference Range Interpretation Comments MCHC (test code = MCHC) 33.1 32.0-36.0 [facility] PlanoZmourlwARARNMUXJW9733-82-34 05:10:00 Test Item Value Reference Range Interpretation Comments RDW (test code = RDW) 19.2 11.5-14.5 [place] 679791-08-09 05:10:00 Test Item Value Reference Range Interpretation Comments Platelet (test code = Platelet) 72 133-450 [facility] [place]anoCafdvblNJLWIACCHR1421-85-93 05:10:00 Test Item Value Reference Range Interpretation Comments MPV (test code = MPV) 9.9 7.4-10.4 [place] [address]-08-09 05:10:00 Test Item Value Reference Range Interpretation Comments Segs (test code = Segs) 72.6 45.0-75.0 [facility] [place]anoEhxikypUSKVUTBIAN7325-99-57 05:10:00 Test Item Value Reference Range Interpretation Comments Lymphocytes (test code = Lymphocytes) 15.9 20.0-40.0 [place] 679791-08-09 05:10:00 Test Item Value Reference Range Interpretation Comments Monocytes (test code = Monocytes) 7.3 2.0-12.0 [facility]anoXuqvyzgKIKKUXQEIW6887-31-01 05:10:00 Test Item Value Reference Range Interpretation Comments Eosinophils (test code = 3.4 See_Comment [A utomated message] The Eosinophils) system which ge nerated this result tra nsmitted reference range : <=4.0. The reference r leo was not used to int erpret this result as normal/abnormal . [place] 679791-08-09 05:10:00 Test Item Value Reference Range Interpretation Comments Basophils (test code = 0.8 See_Comment [Aut omated message] The Basophils) system which ge nerated this result tra nsmitted reference range : <=1.0. The reference r leo was not used to int erpret this result as normal/abnormal . [facility] PlanoOjlxuqsULVWCGLTVW1862-54-15 05:10:00 Test Item Value Reference Range Interpretation Comments Neutrophils # (test code = Neutrophils 1.9 1.5-8.1 #) [facility]anoJokswpbYUKQRVIAGN4061-41-34 05:10:00 Test Item Value Reference Range Interpretation Comments Lymphocytes # (test code = Lymphocytes 0.4 1.0-5.5 #) [facility] [place]anoQiwwhjbDHGIDWHMOX0265-80-76 05:10:00 Test Item Value Reference Range Interpretation Comments Monocytes # (test code 0.2 See_Comment [Aut omated message] The = Monocytes #) system which generated this result tra nsmitted reference range : <=0.8. The reference r leo was not used to int erpret this result as normal/abnormal . [place] 679791-08-09 05:10:00 Test Item Value Reference Range Interpretation Comments Eosinophils # (test code 0.1 See_Comment [A utomated message] The = Eosinophils #) system whic h generated this result tra nsmitted reference range : <=0.5. The reference r leo was not used to int erpret this result as normal/abnormal . [facility] RXLPXDU5639-34-81 05:10:00 Test Item Value Reference Range Interpretation Comments Ca Ion WB (test code = Ca Ion WB) 1.10 1.05-1.25 [facility] ZTDBUFY6275-05-07 05:10:00 Test Item Value Reference Range Interpretation Comments Ca Norm WB (test code = Ca Norm WB) 1.06 1.05-1.25 [place] 006531-08-09 05:10:00 Test Item Value Reference Range Interpretation Comments Glucose Lvl (test code = Glucose Lvl) 69 70-99 [facility]2021-08-09 05:10:00 Test Item Value Reference Range Interpretation Comments BUN (test code = BUN) 29 7-22 [facility]2021-08-09 05:10:00 Test Item Value Reference Range Interpretation Comments Creatinine Lvl (test code = Creatinine 5.14 0.50-1.40 Lvl) [facility]2021-08-09 05:10:00 Test Item Value Reference Range Interpretation Comments Sodium Lvl (test code = Sodium Lvl) 134 135-145 [facility]2021-08-09 05:10:00 Test Item Value Reference Range Interpretation Comments Potassium Lvl (test code = Potassium 5.1 3.5-5.1 Lvl) [facility]2021-08-09 05:10:00 Test Item Value Reference Range Interpretation Comments Chloride Lvl (test code = Chloride Lvl) 98 95-109 [place] 006531-08-09 05:10:00 Test Item Value Reference Range Interpretation Comments CO2 (test code = CO2) 29 24-32 [place] 006531-08-09 05:10:00 Test Item Value Reference Range Interpretation Comments Calcium Lvl (test code = Calcium Lvl) 7.6 8.5-10.5 [place] 006531-08-09 05:10:00 Test Item Value Reference Range Interpretation Comments AGAP (test code = AGAP) 12.1 10.0-20.0 [place] 006531-08-09 05:10:00 Test Item Value Reference Range Interpretation Comments eGFR (test code = eGFR) 10 [facility]2021-08-09 05:10:00 Test Item Value Reference Range Interpretation Comments Magnesium Lvl (test code = Magnesium 2.3 1.8-2.4 Lvl) [facility]2021-08-09 05:10:00 Test Item Value Reference Range Interpretation Comments Phosphorus (test code = Phosphorus) 5.0 2.5-4.5 [facility]anoUdxrthpNLMXIWLYKN3160-15-00 05:10:00 Test Item Value Reference Range Interpretation Comments WBC (test code = WBC) 2.7 3.7-10.4 [facility] PlanoJidtdviEHDKLBDKFH7163-78-91 05:10:00 Test Item Value Reference Range Interpretation Comments RBC (test code = RBC) 2.80 4.20-5.40 [place] 679791-08-09 05:10:00 Test Item Value Reference Range Interpretation Comments Hgb (test code = Hgb) 8.5 12.0-16.0 [place] 679791-08-09 05:10:00 Test Item Value Reference Range Interpretation Comments Hct (test code = Hct) 25.7 36.0-48.0 [facility] PlanoLzxgittBPRHXYAYGZ6927-45-09 05:10:00 Test Item Value Reference Range Interpretation Comments MCV (test code = MCV) 91.7 80.0-98.0 [facility]anoKmyolfqVUXBWOUKLU6836-45-92 05:10:00 Test Item Value Reference Range Interpretation Comments MCH (test code = MCH) 30.4 pg 27.0-31.0 [facility] PlanoBuggourWBAQYWEMTT2811-47-61 05:10:00 Test Item Value Reference Range Interpretation Comments MCHC (test code = MCHC) 33.1 32.0-36.0 [facility]anoFnyxfmbXOSMWGOPWT3508-59-40 05:10:00 Test Item Value Reference Range Interpretation Comments RDW (test code = RDW) 19.2 11.5-14.5 [place] 679791-08-09 05:10:00 Test Item Value Reference Range Interpretation Comments Platelet (test code = Platelet) 72 133-450 [facility] PlanoBptwoelLRNARBJPIF7205-75-08 05:10:00 Test Item Value Reference Range Interpretation Comments MPV (test code = MPV) 9.9 7.4-10.4 [place] [address]-08-09 05:10:00 Test Item Value Reference Range Interpretation Comments Segs (test code = Segs) 72.6 45.0-75.0 [facility] PlanoYjasbdjIILVRWOHPS3745-85-63 05:10:00 Test Item Value Reference Range Interpretation Comments Lymphocytes (test code = Lymphocytes) 15.9 20.0-40.0 [place] 679791-08-09 05:10:00 Test Item Value Reference Range Interpretation Comments Monocytes (test code = Monocytes) 7.3 2.0-12.0 [facility] PlanoVdezwgiJESMMGSBNU5747-08-68 05:10:00 Test Item Value Reference Range Interpretation Comments Eosinophils (test code = 3.4 See_Comment [A utomated message] The Eosinophils) system which ge nerated this result tra nsmitted reference range : <=4.0. The reference r leo was not used to int erpret this result as normal/abnormal . [place] 679791-08-09 05:10:00 Test Item Value Reference Range Interpretation Comments Basophils (test code = 0.8 See_Comment [Aut omated message] The Basophils) system which ge nerated this result tra nsmitted reference range : <=1.0. The reference r leo was not used to int erpret this result as normal/abnormal . [facility] PlanoPalzjuhSSOCAAHPVZ7014-04-49 05:10:00 Test Item Value Reference Range Interpretation Comments Neutrophils # (test code = Neutrophils 1.9 1.5-8.1 #) [facility]anoJxlmnhlFDFIOYYJRI1485-44-79 05:10:00 Test Item Value Reference Range Interpretation Comments Lymphocytes # (test code = Lymphocytes 0.4 1.0-5.5 #) [facility] PlanoSbraosiCSHHCDKMJH7000-48-24 05:10:00 Test Item Value Reference Range Interpretation Comments Monocytes # (test code 0.2 See_Comment [Aut omated message] The = Monocytes #) system which generated this result tra nsmitted reference range : <=0.8. The reference r leo was not used to int erpret this result as normal/abnormal . [place] 679791-08-09 05:10:00 Test Item Value Reference Range Interpretation Comments Eosinophils # (test code 0.1 See_Comment [A utomated message] The = Eosinophils #) system whic h generated this result tra nsmitted reference range : <=0.5. The reference r leo was not used to int erpret this result as normal/abnormal . [facility]2021-08-09 05:10:00 Test Item Value Reference Range Interpretation Comments Ca Ion WB (test code = Ca Ion WB) 1.10 1.05-1.25 [facility]2021-08-09 05:10:00 Test Item Value Reference Range Interpretation Comments Ca Norm WB (test code = Ca Norm WB) 1.06 1.05-1.25 [facility]2021-08-08 18:36:00 Test Item Value Reference Range Interpretation Comments C difficile DNA (test Negative (01/26/21 1:36 code = C difficile DNA) PM) [facility]2021-08-08 18:36:00 Test Item Value Reference Range Interpretation Comments C difficile DNA (test Negative (01/26/21 1:36 code = C difficile DNA) PM) [facility]2021-08-08 18:36:00 Test Item Value Reference Range Interpretation Comments C difficile DNA (test Negative (01/26/21 1:36 code = C difficile DNA) PM) [facility]2021-08-08 18:36:00 Test Item Value Reference Range Interpretation Comments C difficile DNA (test Negative (01/26/21 1:36 code = C difficile DNA) PM) [facility]2021-08-08 18:36:00 Test Item Value Reference Range Interpretation Comments C difficile DNA (test Negative (01/26/21 1:36 code = C difficile DNA) PM) [facility]2021-08-08 07:33:00 Test Item Value Reference Range Interpretation Comments Ca Ion WB (test code = Ca Ion WB) 1.12 1.05-1.25 [facility]2021-08-08 07:33:00 Test Item Value Reference Range Interpretation Comments Ca Norm WB (test code = Ca Norm WB) 1.07 1.05-1.25 [facility]2021-08-08 07:33:00 Test Item Value Reference Range Interpretation Comments Ca Ion WB (test code = Ca Ion WB) 1.12 1.05-1.25 [place] 199461-08-08 07:33:00 Test Item Value Reference Range Interpretation Comments Ca Norm WB (test code = Ca Norm WB) 1.07 1.05-1.25 [place] 199461-08-08 07:33:00 Test Item Value Reference Range Interpretation Comments Ca Ion WB (test code = Ca Ion WB) 1.12 1.05-1.25 [place] 199461-08-08 07:33:00 Test Item Value Reference Range Interpretation Comments Ca Norm WB (test code = Ca Norm WB) 1.07 1.05-1.25 [place] 199461-08-08 07:33:00 Test Item Value Reference Range Interpretation Comments Ca Ion WB (test code = Ca Ion WB) 1.12 1.05-1.25 [place] 199461-08-08 07:33:00 Test Item Value Reference Range Interpretation Comments Ca Norm WB (test code = Ca Norm WB) 1.07 1.05-1.25 [place] 199461-08-08 07:33:00 Test Item Value Reference Range Interpretation Comments Ca Ion WB (test code = Ca Ion WB) 1.12 1.05-1.25 [place] 199461-08-08 07:33:00 Test Item Value Reference Range Interpretation Comments Ca Norm WB (test code = Ca Norm WB) 1.07 1.05-1.25 [place] 006531-08-08 07:30:00 Test Item Value Reference Range Interpretation Comments Glucose Lvl (test code = Glucose Lvl) 65 70-99 [facility]2021-08-08 07:30:00 Test Item Value Reference Range Interpretation Comments BUN (test code = BUN) 21 7-22 [place] 006531-08-08 07:30:00 Test Item Value Reference Range Interpretation Comments Creatinine Lvl (test code = Creatinine 4.18 0.50-1.40 Lvl) [place] 006531-08-08 07:30:00 Test Item Value Reference Range Interpretation Comments Sodium Lvl (test code = Sodium Lvl) 136 135-145 [place] 006531-08-08 07:30:00 Test Item Value Reference Range Interpretation Comments Potassium Lvl (test code = Potassium 4.5 3.5-5.1 Lvl) [place] 006531-08-08 07:30:00 Test Item Value Reference Range Interpretation Comments Chloride Lvl (test code = Chloride Lvl) 99 95-109 [place] 006531-08-08 07:30:00 Test Item Value Reference Range Interpretation Comments CO2 (test code = CO2) 31 24-32 [place] 006531-08-08 07:30:00 Test Item Value Reference Range Interpretation Comments AGAP (test code = AGAP) 10.5 10.0-20.0 [place] 006531-08-08 07:30:00 Test Item Value Reference Range Interpretation Comments Calcium Lvl (test code = Calcium Lvl) 7.9 8.5-10.5 [place] 006531-08-08 07:30:00 Test Item Value Reference Range Interpretation Comments eGFR (test code = eGFR) 13 [place] 006531-08-08 07:30:00 Test Item Value Reference Range Interpretation Comments Magnesium Lvl (test code = Magnesium 2.2 1.8-2.4 Lvl) [place] 006531-08-08 07:30:00 Test Item Value Reference Range Interpretation Comments Phosphorus (test code = Phosphorus) 4.4 2.5-4.5 [place] 679791-08-08 07:30:00 Test Item Value Reference Range Interpretation Comments WBC (test code = WBC) 2.3 3.7-10.4 [place] 679791-08-08 07:30:00 Test Item Value Reference Range Interpretation Comments RBC (test code = RBC) 2.88 4.20-5.40 [place] [address]-08-08 07:30:00 Test Item Value Reference Range Interpretation Comments Hgb (test code = Hgb) 8.6 12.0-16.0 [place] [address]-08-08 07:30:00 Test Item Value Reference Range Interpretation Comments Hct (test code = Hct) 26.6 36.0-48.0 [place] 679791-08-08 07:30:00 Test Item Value Reference Range Interpretation Comments MCV (test code = MCV) 92.2 80.0-98.0 [place] 679791-08-08 07:30:00 Test Item Value Reference Range Interpretation Comments MCH (test code = MCH) 29.8 pg 27.0-31.0 [facility]FwvaxhoMTYMJAPARH5220[facility]92-09 07:30:00 Test Item Value Reference Range Interpretation Comments MCHC (test code = MCHC) 32.4 32.0-36.0 [facility]anoEurxjwcHPWVSSINLF6852-02-23 07:30:00 Test Item Value Reference Range Interpretation Comments RDW (test code = RDW) 19.7 11.5-14.5 [place] 679791-08-08 07:30:00 Test Item Value Reference Range Interpretation Comments Platelet (test code = Platelet) 83 133-450 [facility]anoZykyecaGNPVJBVWXG2202-47-09 07:30:00 Test Item Value Reference Range Interpretation Comments MPV (test code = MPV) 10.2 7.4-10.4 [facility]anoTabrohvINPKHJTLZU2822-86-18 07:30:00 Test Item Value Reference Range Interpretation Comments Segs (test code = Segs) 64.0 45.0-75.0 [facility]anoInfwxnwRSAFIDMMBD5203-52-30 07:30:00 Test Item Value Reference Range Interpretation Comments Lymphocytes (test code = Lymphocytes) 24.1 20.0-40.0 [facility]anoRyhsolwKGANFTNZEA0515-16-96 07:30:00 Test Item Value Reference Range Interpretation Comments Monocytes (test code = Monocytes) 7.0 2.0-12.0 [facility]anoNokzdrhPHPYEJJQXT3625-84-17 07:30:00 Test Item Value Reference Range Interpretation Comments Eosinophils (test code = 3.7 See_Comment [A utomated message] The Eosinophils) system which ge nerated this result tra nsmitted reference range : <=4.0. The reference r leo was not used to int erpret this result as normal/abnormal . [place] 679791-08-08 07:30:00 Test Item Value Reference Range Interpretation Comments Basophils (test code = 1.2 See_Comment [Aut omated message] The Basophils) system which ge nerated this result tra nsmitted reference range : <=1.0. The reference r leo was not used to int erpret this result as normal/abnormal . [place] 679791-08-08 07:30:00 Test Item Value Reference Range Interpretation Comments Neutrophils # (test code = Neutrophils 1.5 1.5-8.1 #) [place] 679791-08-08 07:30:00 Test Item Value Reference Range Interpretation Comments Lymphocytes # (test code = Lymphocytes 0.6 1.0-5.5 #) [place] 679791-08-08 07:30:00 Test Item Value Reference Range Interpretation Comments Monocytes # (test code 0.2 See_Comment [Aut omated message] The = Monocytes #) system which generated this result tra nsmitted reference range : <=0.8. The reference r leo was not used to int erpret this result as normal/abnormal . [place] [address]-08-08 07:30:00 Test Item Value Reference Range Interpretation Comments Eosinophils # (test code 0.1 See_Comment [A utomated message] The = Eosinophils #) system whic h generated this result tra nsmitted reference range : <=0.5. The reference r leo was not used to int erpret this result as normal/abnormal . [place] 006531-08-08 07:30:00 Test Item Value Reference Range Interpretation Comments Glucose Lvl (test code = Glucose Lvl) 65 70-99 [place] 006531-08-08 07:30:00 Test Item Value Reference Range Interpretation Comments BUN (test code = BUN) 21 7-22 [place] 006531-08-08 07:30:00 Test Item Value Reference Range Interpretation Comments Creatinine Lvl (test code = Creatinine 4.18 0.50-1.40 Lvl) [place] 006531-08-08 07:30:00 Test Item Value Reference Range Interpretation Comments Sodium Lvl (test code = Sodium Lvl) 136 135-145 [place] 006531-08-08 07:30:00 Test Item Value Reference Range Interpretation Comments Potassium Lvl (test code = Potassium 4.5 3.5-5.1 Lvl) [place] 006531-08-08 07:30:00 Test Item Value Reference Range Interpretation Comments Chloride Lvl (test code = Chloride Lvl) 99 95-109 [place] [address]-08-08 07:30:00 Test Item Value Reference Range Interpretation Comments CO2 (test code = CO2) 31 24-32 [place] 006531-08-08 07:30:00 Test Item Value Reference Range Interpretation Comments AGAP (test code = AGAP) 10.5 10.0-20.0 [place] [address]-08-08 07:30:00 Test Item Value Reference Range Interpretation Comments Calcium Lvl (test code = Calcium Lvl) 7.9 8.5-10.5 [place] 006531-08-08 07:30:00 Test Item Value Reference Range Interpretation Comments eGFR (test code = eGFR) 13 [place] 006531-08-08 07:30:00 Test Item Value Reference Range Interpretation Comments Magnesium Lvl (test code = Magnesium 2.2 1.8-2.4 Lvl) [place] 006531-08-08 07:30:00 Test Item Value Reference Range Interpretation Comments Phosphorus (test code = Phosphorus) 4.4 2.5-4.5 [place] 679791-08-08 07:30:00 Test Item Value Reference Range Interpretation Comments WBC (test code = WBC) 2.3 3.7-10.4 [place] 679791-08-08 07:30:00 Test Item Value Reference Range Interpretation Comments RBC (test code = RBC) 2.88 4.20-5.40 [place] 679791-08-08 07:30:00 Test Item Value Reference Range Interpretation Comments Hgb (test code = Hgb) 8.6 12.0-16.0 [place] 679791-08-08 07:30:00 Test Item Value Reference Range Interpretation Comments Hct (test code = Hct) 26.6 36.0-48.0 [place] 679791-08-08 07:30:00 Test Item Value Reference Range Interpretation Comments MCV (test code = MCV) 92.2 80.0-98.0 [place] 679791-08-08 07:30:00 Test Item Value Reference Range Interpretation Comments MCH (test code = MCH) 29.8 pg 27.0-31.0 [place] [address]-08-08 07:30:00 Test Item Value Reference Range Interpretation Comments MCHC (test code = MCHC) 32.4 32.0-36.0 [place] [address]-08-08 07:30:00 Test Item Value Reference Range Interpretation Comments RDW (test code = RDW) 19.7 11.5-14.5 [place] 679791-08-08 07:30:00 Test Item Value Reference Range Interpretation Comments Platelet (test code = Platelet) 83 133-450 [place] 679791-08-08 07:30:00 Test Item Value Reference Range Interpretation Comments MPV (test code = MPV) 10.2 7.4-10.4 [place] 679791-08-08 07:30:00 Test Item Value Reference Range Interpretation Comments Segs (test code = Segs) 64.0 45.0-75.0 [place] 679791-08-08 07:30:00 Test Item Value Reference Range Interpretation Comments Lymphocytes (test code = Lymphocytes) 24.1 20.0-40.0 [place] 679791-08-08 07:30:00 Test Item Value Reference Range Interpretation Comments Monocytes (test code = Monocytes) 7.0 2.0-12.0 [place] 679791-08-08 07:30:00 Test Item Value Reference Range Interpretation Comments Eosinophils (test code = 3.7 See_Comment [A utomated message] The Eosinophils) system which ge nerated this result tra nsmitted reference range : <=4.0. The reference r leo was not used to int erpret this result as normal/abnormal . [place] 679791-08-08 07:30:00 Test Item Value Reference Range Interpretation Comments Basophils (test code = 1.2 See_Comment [Aut omated message] The Basophils) system which ge nerated this result tra nsmitted reference range : <=1.0. The reference r leo was not used to int erpret this result as normal/abnormal . [place] 679791-08-08 07:30:00 Test Item Value Reference Range Interpretation Comments Neutrophils # (test code = Neutrophils 1.5 1.5-8.1 #) [facility]CqfjocsQPYHNHJIYM7571-42-17 07:30:00 Test Item Value Reference Range Interpretation Comments Lymphocytes # (test code = Lymphocytes 0.6 1.0-5.5 #) [place] 679791-08-08 07:30:00 Test Item Value Reference Range Interpretation Comments Monocytes # (test code 0.2 See_Comment [Aut omated message] The = Monocytes #) system which generated this result tra nsmitted reference range : <=0.8. The reference r leo was not used to int erpret this result as normal/abnormal . [facility]anoJjwvbseDMYCNXHKGZ8533-64-74 07:30:00 Test Item Value Reference Range Interpretation Comments Eosinophils # (test code 0.1 See_Comment [A utomated message] The = Eosinophils #) system whic h generated this result tra nsmitted reference range : <=0.5. The reference r leo was not used to int erpret this result as normal/abnormal . [place] 006531-08-08 07:30:00 Test Item Value Reference Range Interpretation Comments Glucose Lvl (test code = Glucose Lvl) 65 70-99 [place] 006531-08-08 07:30:00 Test Item Value Reference Range Interpretation Comments BUN (test code = BUN) 21 7-22 [place] 006531-08-08 07:30:00 Test Item Value Reference Range Interpretation Comments Creatinine Lvl (test code = Creatinine 4.18 0.50-1.40 Lvl) [place] 006531-08-08 07:30:00 Test Item Value Reference Range Interpretation Comments Sodium Lvl (test code = Sodium Lvl) 136 135-145 [place] 006531-08-08 07:30:00 Test Item Value Reference Range Interpretation Comments Potassium Lvl (test code = Potassium 4.5 3.5-5.1 Lvl) [place] 006531-08-08 07:30:00 Test Item Value Reference Range Interpretation Comments Chloride Lvl (test code = Chloride Lvl) 99 95-109 [place] 006531-08-08 07:30:00 Test Item Value Reference Range Interpretation Comments CO2 (test code = CO2) 31 24-32 [place] 006531-08-08 07:30:00 Test Item Value Reference Range Interpretation Comments AGAP (test code = AGAP) 10.5 10.0-20.0 [place] 006531-08-08 07:30:00 Test Item Value Reference Range Interpretation Comments Calcium Lvl (test code = Calcium Lvl) 7.9 8.5-10.5 [place] [address]-08-08 07:30:00 Test Item Value Reference Range Interpretation Comments eGFR (test code = eGFR) 13 [place] 006531-08-08 07:30:00 Test Item Value Reference Range Interpretation Comments Magnesium Lvl (test code = Magnesium 2.2 1.8-2.4 Lvl) [place] 006531-08-08 07:30:00 Test Item Value Reference Range Interpretation Comments Phosphorus (test code = Phosphorus) 4.4 2.5-4.5 [place] 679791-08-08 07:30:00 Test Item Value Reference Range Interpretation Comments WBC (test code = WBC) 2.3 3.7-10.4 [place] 679791-08-08 07:30:00 Test Item Value Reference Range Interpretation Comments RBC (test code = RBC) 2.88 4.20-5.40 [place] 679791-08-08 07:30:00 Test Item Value Reference Range Interpretation Comments Hgb (test code = Hgb) 8.6 12.0-16.0 [place] 679791-08-08 07:30:00 Test Item Value Reference Range Interpretation Comments Hct (test code = Hct) 26.6 36.0-48.0 [place] 679791-08-08 07:30:00 Test Item Value Reference Range Interpretation Comments MCV (test code = MCV) 92.2 80.0-98.0 [place] 679791-08-08 07:30:00 Test Item Value Reference Range Interpretation Comments MCH (test code = MCH) 29.8 pg 27.0-31.0 [place] 679791-08-08 07:30:00 Test Item Value Reference Range Interpretation Comments MCHC (test code = MCHC) 32.4 32.0-36.0 [place] 679791-08-08 07:30:00 Test Item Value Reference Range Interpretation Comments RDW (test code = RDW) 19.7 11.5-14.5 [place] 679791-08-08 07:30:00 Test Item Value Reference Range Interpretation Comments Platelet (test code = Platelet) 83 133-450 [place] 679791-08-08 07:30:00 Test Item Value Reference Range Interpretation Comments MPV (test code = MPV) 10.2 7.4-10.4 [facility]anoDofoubdZNKJRHDPKW7940-20-00 07:30:00 Test Item Value Reference Range Interpretation Comments Segs (test code = Segs) 64.0 45.0-75.0 [facility]anoKmovsfqKAVUXLOWMW5005-56-26 07:30:00 Test Item Value Reference Range Interpretation Comments Lymphocytes (test code = Lymphocytes) 24.1 20.0-40.0 [facility]anoCmtwladACEGXBYRBC2104-91-75 07:30:00 Test Item Value Reference Range Interpretation Comments Monocytes (test code = Monocytes) 7.0 2.0-12.0 [facility]anoEpdjijzQODBOXQJIW4241-36-25 07:30:00 Test Item Value Reference Range Interpretation Comments Eosinophils (test code = 3.7 See_Comment [A utomated message] The Eosinophils) system which ge nerated this result tra nsmitted reference range : <=4.0. The reference r leo was not used to int erpret this result as normal/abnormal . [facility]anoJgcokuyRAEFCNHXQK0615-99-95 07:30:00 Test Item Value Reference Range Interpretation Comments Basophils (test code = 1.2 See_Comment [Aut omated message] The Basophils) system which ge nerated this result tra nsmitted reference range : <=1.0. The reference r leo was not used to int erpret this result as normal/abnormal . [facility]anoYozoufvLJOKHFVNLE7325-33-99 07:30:00 Test Item Value Reference Range Interpretation Comments Neutrophils # (test code = Neutrophils 1.5 1.5-8.1 #) [facility]anoQyublgbKRNWXXVLPA2781-31-07 07:30:00 Test Item Value Reference Range Interpretation Comments Lymphocytes # (test code = Lymphocytes 0.6 1.0-5.5 #) [place] 679791-08-08 07:30:00 Test Item Value Reference Range Interpretation Comments Monocytes # (test code 0.2 See_Comment [Aut omated message] The = Monocytes #) system which generated this result tra nsmitted reference range : <=0.8. The reference r leo was not used to int erpret this result as normal/abnormal . [place] 679791-08-08 07:30:00 Test Item Value Reference Range Interpretation Comments Eosinophils # (test code 0.1 See_Comment [A utomated message] The = Eosinophils #) system whic h generated this result tra nsmitted reference range : <=0.5. The reference r leo was not used to int erpret this result as normal/abnormal . [place] 006531-08-08 07:30:00 Test Item Value Reference Range Interpretation Comments Glucose Lvl (test code = Glucose Lvl) 65 70-99 [place] 006531-08-08 07:30:00 Test Item Value Reference Range Interpretation Comments BUN (test code = BUN) 21 7-22 [place] 006531-08-08 07:30:00 Test Item Value Reference Range Interpretation Comments Creatinine Lvl (test code = Creatinine 4.18 0.50-1.40 Lvl) [place] 006531-08-08 07:30:00 Test Item Value Reference Range Interpretation Comments Sodium Lvl (test code = Sodium Lvl) 136 135-145 [place] 006531-08-08 07:30:00 Test Item Value Reference Range Interpretation Comments Potassium Lvl (test code = Potassium 4.5 3.5-5.1 Lvl) [place] 006531-08-08 07:30:00 Test Item Value Reference Range Interpretation Comments Chloride Lvl (test code = Chloride Lvl) 99 95-109 [place] 006531-08-08 07:30:00 Test Item Value Reference Range Interpretation Comments CO2 (test code = CO2) 31 24-32 [place] 006531-08-08 07:30:00 Test Item Value Reference Range Interpretation Comments AGAP (test code = AGAP) 10.5 10.0-20.0 [facility] [id number] 07:30:00 Test Item Value Reference Range Interpretation Comments Calcium Lvl (test code = Calcium Lvl) 7.9 8.5-10.5 [place] 006531-08-08 07:30:00 Test Item Value Reference Range Interpretation Comments eGFR (test code = eGFR) 13 [place] 006531-08-08 07:30:00 Test Item Value Reference Range Interpretation Comments Magnesium Lvl (test code = Magnesium 2.2 1.8-2.4 Lvl) [place] 006531-08-08 07:30:00 Test Item Value Reference Range Interpretation Comments Phosphorus (test code = Phosphorus) 4.4 2.5-4.5 [facility]anoMsxpivfFKJDRCGGCG4087-69-29 07:30:00 Test Item Value Reference Range Interpretation Comments WBC (test code = WBC) 2.3 3.7-10.4 [facility]anoPazhrlcBGNYKVQGEY0386-86-56 07:30:00 Test Item Value Reference Range Interpretation Comments RBC (test code = RBC) 2.88 4.20-5.40 [facility]anoYjlwxhlNUVYODFYZV5715-41-34 07:30:00 Test Item Value Reference Range Interpretation Comments Hgb (test code = Hgb) 8.6 12.0-16.0 [facility]anoKsbgkpbJWYTNSPCVF6634-65-28 07:30:00 Test Item Value Reference Range Interpretation Comments Hct (test code = Hct) 26.6 36.0-48.0 [facility]anoGxjfmqmJUKTRLKXWJ9847-50-58 07:30:00 Test Item Value Reference Range Interpretation Comments MCV (test code = MCV) 92.2 80.0-98.0 [facility]anoIgdgxkzUIBYLKNGOR9181-21-65 07:30:00 Test Item Value Reference Range Interpretation Comments MCH (test code = MCH) 29.8 pg 27.0-31.0 [facility]anoSlngdteKFTUGJTYBK1343-69-92 07:30:00 Test Item Value Reference Range Interpretation Comments MCHC (test code = MCHC) 32.4 32.0-36.0 [facility]anoSecfbzcHAMSFZGCHK4448-44-35 07:30:00 Test Item Value Reference Range Interpretation Comments RDW (test code = RDW) 19.7 11.5-14.5 [facility]anoQckvtuxZEZAULGJRU7509-76-18 07:30:00 Test Item Value Reference Range Interpretation Comments Platelet (test code = Platelet) 83 133-450 [facility] PlanoZionrylEIGXFDXCJQ7652-69-42 07:30:00 Test Item Value Reference Range Interpretation Comments MPV (test code = MPV) 10.2 7.4-10.4 [place] 679791-08-08 07:30:00 Test Item Value Reference Range Interpretation Comments Segs (test code = Segs) 64.0 45.0-75.0 [facility]anoXjgjrmfZJNBAKKSCG8945-67-74 07:30:00 Test Item Value Reference Range Interpretation Comments Lymphocytes (test code = Lymphocytes) 24.1 20.0-40.0 [place] 679791-08-08 07:30:00 Test Item Value Reference Range Interpretation Comments Monocytes (test code = Monocytes) 7.0 2.0-12.0 [place] 679791-08-08 07:30:00 Test Item Value Reference Range Interpretation Comments Eosinophils (test code = 3.7 See_Comment [A utomated message] The Eosinophils) system which ge nerated this result tra nsmitted reference range : <=4.0. The reference r leo was not used to int erpret this result as normal/abnormal . [place] 679791-08-08 07:30:00 Test Item Value Reference Range Interpretation Comments Basophils (test code = 1.2 See_Comment [Aut omated message] The Basophils) system which ge nerated this result tra nsmitted reference range : <=1.0. The reference r leo was not used to int erpret this result as normal/abnormal . [place] 679791-08-08 07:30:00 Test Item Value Reference Range Interpretation Comments Neutrophils # (test code = Neutrophils 1.5 1.5-8.1 #) [place] 679791-08-08 07:30:00 Test Item Value Reference Range Interpretation Comments Lymphocytes # (test code = Lymphocytes 0.6 1.0-5.5 #) [facility]anoGqgfmnpVCNFIKXHIA9958-45-92 07:30:00 Test Item Value Reference Range Interpretation Comments Monocytes # (test code 0.2 See_Comment [Aut omated message] The = Monocytes #) system which generated this result tra nsmitted reference range : <=0.8. The reference r leo was not used to int erpret this result as normal/abnormal . [facility]anoLfxaiaeAEWBJLJBQD3247-48-22 07:30:00 Test Item Value Reference Range Interpretation Comments Eosinophils # (test code 0.1 See_Comment [A utomated message] The = Eosinophils #) system whic h generated this result tra nsmitted reference range : <=0.5. The reference r leo was not used to int erpret this result as normal/abnormal . [facility] [id number] 07:30:00 Test Item Value Reference Range Interpretation Comments Glucose Lvl (test code = Glucose Lvl) 65 70-99 [facility] [place] 847[facility]08 07:30:00 Test Item Value Reference Range Interpretation Comments BUN (test code = BUN) 21 7-22 [place] 006531-08-08 07:30:00 Test Item Value Reference Range Interpretation Comments Creatinine Lvl (test code = Creatinine 4.18 0.50-1.40 Lvl) [place] 006531-08-08 07:30:00 Test Item Value Reference Range Interpretation Comments Sodium Lvl (test code = Sodium Lvl) 136 135-145 [place] 006531-08-08 07:30:00 Test Item Value Reference Range Interpretation Comments Potassium Lvl (test code = Potassium 4.5 3.5-5.1 Lvl) [place] 006531-08-08 07:30:00 Test Item Value Reference Range Interpretation Comments Chloride Lvl (test code = Chloride Lvl) 99 95-109 [place] 006531-08-08 07:30:00 Test Item Value Reference Range Interpretation Comments CO2 (test code = CO2) 31 24-32 [place] 006531-08-08 07:30:00 Test Item Value Reference Range Interpretation Comments AGAP (test code = AGAP) 10.5 10.0-20.0 [place] 006531-08-08 07:30:00 Test Item Value Reference Range Interpretation Comments Calcium Lvl (test code = Calcium Lvl) 7.9 8.5-10.5 [place] 006531-08-08 07:30:00 Test Item Value Reference Range Interpretation Comments eGFR (test code = eGFR) 13 [place] 006531-08-08 07:30:00 Test Item Value Reference Range Interpretation Comments Magnesium Lvl (test code = Magnesium 2.2 1.8-2.4 Lvl) [place] 006531-08-08 07:30:00 Test Item Value Reference Range Interpretation Comments Phosphorus (test code = Phosphorus) 4.4 2.5-4.5 [place] 679791-08-08 07:30:00 Test Item Value Reference Range Interpretation Comments WBC (test code = WBC) 2.3 3.7-10.4 [place] 679791-08-08 07:30:00 Test Item Value Reference Range Interpretation Comments RBC (test code = RBC) 2.88 4.20-5.40 [facility]anoAsbeusmPJJTLWCCTX6352-95-55 07:30:00 Test Item Value Reference Range Interpretation Comments Hgb (test code = Hgb) 8.6 12.0-16.0 [facility]anoAvnqksxGICTZPFYPR9487-30-86 07:30:00 Test Item Value Reference Range Interpretation Comments Hct (test code = Hct) 26.6 36.0-48.0 [facility]anoWwdipxfMNSINCKAMG1949-45-05 07:30:00 Test Item Value Reference Range Interpretation Comments MCV (test code = MCV) 92.2 80.0-98.0 [facility]anoVrlxcroBPWFAXTUWG5337-25-63 07:30:00 Test Item Value Reference Range Interpretation Comments MCH (test code = MCH) 29.8 pg 27.0-31.0 [facility]anoIbbdicbJNFVMUNQCI6142-36-91 07:30:00 Test Item Value Reference Range Interpretation Comments MCHC (test code = MCHC) 32.4 32.0-36.0 [facility]anoUkxmitcYOKGWHTIZY7184-79-72 07:30:00 Test Item Value Reference Range Interpretation Comments RDW (test code = RDW) 19.7 11.5-14.5 [facility]anoPmfpycaYCAAXDJVQI4998-68-31 07:30:00 Test Item Value Reference Range Interpretation Comments Platelet (test code = Platelet) 83 133-450 [facility]anoClfuvysGFDSTLTFBP4837-50-86 07:30:00 Test Item Value Reference Range Interpretation Comments MPV (test code = MPV) 10.2 7.4-10.4 [facility]anoBvwbfoyYGWZVESEER2344-03-13 07:30:00 Test Item Value Reference Range Interpretation Comments Segs (test code = Segs) 64.0 45.0-75.0 [facility]anoUbesxcbROSCTWOETJ2557-20-22 07:30:00 Test Item Value Reference Range Interpretation Comments Lymphocytes (test code = Lymphocytes) 24.1 20.0-40.0 [facility]anoFlfhofgMVNBHQVYNU6809-28-72 07:30:00 Test Item Value Reference Range Interpretation Comments Monocytes (test code = Monocytes) 7.0 2.0-12.0 [facility]anoLxlcpohLCWWYXDWFV1208-23-19 07:30:00 Test Item Value Reference Range Interpretation Comments Eosinophils (test code = 3.7 See_Comment [A utomated message] The Eosinophils) system which ge nerated this result tra nsmitted reference range : <=4.0. The reference r leo was not used to int erpret this result as normal/abnormal . [place] 679791-08-08 07:30:00 Test Item Value Reference Range Interpretation Comments Basophils (test code = 1.2 See_Comment [Aut omated message] The Basophils) system which ge nerated this result tra nsmitted reference range : <=1.0. The reference r leo was not used to int erpret this result as normal/abnormal . [place] 679791-08-08 07:30:00 Test Item Value Reference Range Interpretation Comments Neutrophils # (test code = Neutrophils 1.5 1.5-8.1 #) [place] 679791-08-08 07:30:00 Test Item Value Reference Range Interpretation Comments Lymphocytes # (test code = Lymphocytes 0.6 1.0-5.5 #) [place] 679791-08-08 07:30:00 Test Item Value Reference Range Interpretation Comments Monocytes # (test code 0.2 See_Comment [Aut omated message] The = Monocytes #) system which generated this result tra nsmitted reference range : <=0.8. The reference r leo was not used to int erpret this result as normal/abnormal . [place] 679791-08-08 07:30:00 Test Item Value Reference Range Interpretation Comments Eosinophils # (test code 0.1 See_Comment [A utomated message] The = Eosinophils #) system whic h generated this result tra nsmitted reference range : <=0.5. The reference r leo was not used to int erpret this result as normal/abnormal . [facility]2021-08-07 09:32:00 Test Item Value Reference Range Interpretation Comments Glucose Lvl (test code = Glucose Lvl) 59 70-99 [place] 006531-08-07 09:32:00 Test Item Value Reference Range Interpretation Comments BUN (test code = BUN) 11 7-22 [place] 006531-08-07 09:32:00 Test Item Value Reference Range Interpretation Comments Creatinine Lvl (test code = Creatinine 2.75 0.50-1.40 Lvl) [place] 006531-08-07 09:32:00 Test Item Value Reference Range Interpretation Comments Sodium Lvl (test code = Sodium Lvl) 138 135-145 [place] 006531-08-07 09:32:00 Test Item Value Reference Range Interpretation Comments Potassium Lvl (test code = Potassium 4.1 3.5-5.1 Lvl) [place] 006531-08-07 09:32:00 Test Item Value Reference Range Interpretation Comments Chloride Lvl (test code = Chloride Lvl) 104 95-109 [place] 006531-08-07 09:32:00 Test Item Value Reference Range Interpretation Comments CO2 (test code = CO2) 29 24-32 [place] 006531-08-07 09:32:00 Test Item Value Reference Range Interpretation Comments Calcium Lvl (test code = Calcium Lvl) 8.3 8.5-10.5 [place] 006531-08-07 09:32:00 Test Item Value Reference Range Interpretation Comments AGAP (test code = AGAP) 9.1 10.0-20.0 [place] 006531-08-07 09:32:00 Test Item Value Reference Range Interpretation Comments eGFR (test code = eGFR) 21 [place] 006531-08-07 09:32:00 Test Item Value Reference Range Interpretation Comments Magnesium Lvl (test code = Magnesium 2.2 1.8-2.4 Lvl) [place] 006531-08-07 09:32:00 Test Item Value Reference Range Interpretation Comments Phosphorus (test code = Phosphorus) 3.9 2.5-4.5 [place] 679791-08-07 09:32:00 Test Item Value Reference Range Interpretation Comments WBC (test code = WBC) 2.3 3.7-10.4 [place] [address]-08-07 09:32:00 Test Item Value Reference Range Interpretation Comments RBC (test code = RBC) 2.78 4.20-5.40 [place] 679791-08-07 09:32:00 Test Item Value Reference Range Interpretation Comments Hgb (test code = Hgb) 8.4 12.0-16.0 [place] [address]-08-07 09:32:00 Test Item Value Reference Range Interpretation Comments Hct (test code = Hct) 25.2 36.0-48.0 [place] [address]-08-07 09:32:00 Test Item Value Reference Range Interpretation Comments MCV (test code = MCV) 90.5 80.0-98.0 [place] [address]-08-07 09:32:00 Test Item Value Reference Range Interpretation Comments MCH (test code = MCH) 30.4 pg 27.0-31.0 [place] [address]-08-07 09:32:00 Test Item Value Reference Range Interpretation Comments MCHC (test code = MCHC) 33.5 32.0-36.0 [place] [address]-08-07 09:32:00 Test Item Value Reference Range Interpretation Comments RDW (test code = RDW) 19.0 11.5-14.5 [place] [address]-08-07 09:32:00 Test Item Value Reference Range Interpretation Comments Platelet (test code = Platelet) 87 133-450 [place] [address]-08-07 09:32:00 Test Item Value Reference Range Interpretation Comments MPV (test code = MPV) 10.0 7.4-10.4 [place] 006531-08-07 09:32:00 Test Item Value Reference Range Interpretation Comments Glucose Lvl (test code = Glucose Lvl) 59 70-99 [place] 006531-08-07 09:32:00 Test Item Value Reference Range Interpretation Comments BUN (test code = BUN) 11 7-22 [place] 72847-08-07 09:32:00 Test Item Value Reference Range Interpretation Comments Creatinine Lvl (test code = Creatinine 2.75 0.50-1.40 Lvl) [place] 006531-08-07 09:32:00 Test Item Value Reference Range Interpretation Comments Sodium Lvl (test code = Sodium Lvl) 138 135-145 [place] 006531-08-07 09:32:00 Test Item Value Reference Range Interpretation Comments Potassium Lvl (test code = Potassium 4.1 3.5-5.1 Lvl) [place] 006531-08-07 09:32:00 Test Item Value Reference Range Interpretation Comments Chloride Lvl (test code = Chloride Lvl) 104 95-109 [place] 006531-08-07 09:32:00 Test Item Value Reference Range Interpretation Comments CO2 (test code = CO2) 29 24-32 [place] 006531-08-07 09:32:00 Test Item Value Reference Range Interpretation Comments Calcium Lvl (test code = Calcium Lvl) 8.3 8.5-10.5 [place] 006531-08-07 09:32:00 Test Item Value Reference Range Interpretation Comments AGAP (test code = AGAP) 9.1 10.0-20.0 [place] 006531-08-07 09:32:00 Test Item Value Reference Range Interpretation Comments eGFR (test code = eGFR) 21 [place] 006531-08-07 09:32:00 Test Item Value Reference Range Interpretation Comments Magnesium Lvl (test code = Magnesium 2.2 1.8-2.4 Lvl) [place] 006531-08-07 09:32:00 Test Item Value Reference Range Interpretation Comments Phosphorus (test code = Phosphorus) 3.9 2.5-4.5 [place] 679791-08-07 09:32:00 Test Item Value Reference Range Interpretation Comments WBC (test code = WBC) 2.3 3.7-10.4 [place] 679791-08-07 09:32:00 Test Item Value Reference Range Interpretation Comments RBC (test code = RBC) 2.78 4.20-5.40 [place] 679791-08-07 09:32:00 Test Item Value Reference Range Interpretation Comments Hgb (test code = Hgb) 8.4 12.0-16.0 [place] 679791-08-07 09:32:00 Test Item Value Reference Range Interpretation Comments Hct (test code = Hct) 25.2 36.0-48.0 [place] 679791-08-07 09:32:00 Test Item Value Reference Range Interpretation Comments MCV (test code = MCV) 90.5 80.0-98.0 [place] 679791-08-07 09:32:00 Test Item Value Reference Range Interpretation Comments MCH (test code = MCH) 30.4 pg 27.0-31.0 [place] [address]-08-07 09:32:00 Test Item Value Reference Range Interpretation Comments MCHC (test code = MCHC) 33.5 32.0-36.0 [place] [address]-08-07 09:32:00 Test Item Value Reference Range Interpretation Comments RDW (test code = RDW) 19.0 11.5-14.5 [place] 679791-08-07 09:32:00 Test Item Value Reference Range Interpretation Comments Platelet (test code = Platelet) 87 133-450 [place] 679791-08-07 09:32:00 Test Item Value Reference Range Interpretation Comments MPV (test code = MPV) 10.0 7.4-10.4 [place] 006531-08-07 09:32:00 Test Item Value Reference Range Interpretation Comments Glucose Lvl (test code = Glucose Lvl) 59 70-99 [place] 006531-08-07 09:32:00 Test Item Value Reference Range Interpretation Comments BUN (test code = BUN) 11 7-22 [place] 006531-08-07 09:32:00 Test Item Value Reference Range Interpretation Comments Creatinine Lvl (test code = Creatinine 2.75 0.50-1.40 Lvl) [place] 006531-08-07 09:32:00 Test Item Value Reference Range Interpretation Comments Sodium Lvl (test code = Sodium Lvl) 138 135-145 [place] 006531-08-07 09:32:00 Test Item Value Reference Range Interpretation Comments Potassium Lvl (test code = Potassium 4.1 3.5-5.1 Lvl) [place] 006531-08-07 09:32:00 Test Item Value Reference Range Interpretation Comments Chloride Lvl (test code = Chloride Lvl) 104 95-109 [place] 006531-08-07 09:32:00 Test Item Value Reference Range Interpretation Comments CO2 (test code = CO2) 29 24-32 [place] 006531-08-07 09:32:00 Test Item Value Reference Range Interpretation Comments Calcium Lvl (test code = Calcium Lvl) 8.3 8.5-10.5 [place] 006531-08-07 09:32:00 Test Item Value Reference Range Interpretation Comments AGAP (test code = AGAP) 9.1 10.0-20.0 [place] 006531-08-07 09:32:00 Test Item Value Reference Range Interpretation Comments eGFR (test code = eGFR) 21 [place] 006531-08-07 09:32:00 Test Item Value Reference Range Interpretation Comments Magnesium Lvl (test code = Magnesium 2.2 1.8-2.4 Lvl) [facility]2021-08-07 09:32:00 Test Item Value Reference Range Interpretation Comments Phosphorus (test code = Phosphorus) 3.9 2.5-4.5 [place] 679791-08-07 09:32:00 Test Item Value Reference Range Interpretation Comments WBC (test code = WBC) 2.3 3.7-10.4 [place] [address]-08-07 09:32:00 Test Item Value Reference Range Interpretation Comments RBC (test code = RBC) 2.78 4.20-5.40 [place] 679791-08-07 09:32:00 Test Item Value Reference Range Interpretation Comments Hgb (test code = Hgb) 8.4 12.0-16.0 [place] 679791-08-07 09:32:00 Test Item Value Reference Range Interpretation Comments Hct (test code = Hct) 25.2 36.0-48.0 [place] 679791-08-07 09:32:00 Test Item Value Reference Range Interpretation Comments MCV (test code = MCV) 90.5 80.0-98.0 [place] 679791-08-07 09:32:00 Test Item Value Reference Range Interpretation Comments MCH (test code = MCH) 30.4 pg 27.0-31.0 [place] 679791-08-07 09:32:00 Test Item Value Reference Range Interpretation Comments MCHC (test code = MCHC) 33.5 32.0-36.0 [place] 679791-08-07 09:32:00 Test Item Value Reference Range Interpretation Comments RDW (test code = RDW) 19.0 11.5-14.5 [place] [address]-08-07 09:32:00 Test Item Value Reference Range Interpretation Comments Platelet (test code = Platelet) 87 133-450 [place] 679791-08-07 09:32:00 Test Item Value Reference Range Interpretation Comments MPV (test code = MPV) 10.0 7.4-10.4 [place] 006531-08-07 09:32:00 Test Item Value Reference Range Interpretation Comments Glucose Lvl (test code = Glucose Lvl) 59 70-99 [place] 006531-08-07 09:32:00 Test Item Value Reference Range Interpretation Comments BUN (test code = BUN) 11 7-22 [place] 006531-08-07 09:32:00 Test Item Value Reference Range Interpretation Comments Creatinine Lvl (test code = Creatinine 2.75 0.50-1.40 Lvl) [place] 006531-08-07 09:32:00 Test Item Value Reference Range Interpretation Comments Sodium Lvl (test code = Sodium Lvl) 138 135-145 [place] 006531-08-07 09:32:00 Test Item Value Reference Range Interpretation Comments Potassium Lvl (test code = Potassium 4.1 3.5-5.1 Lvl) [place] 006531-08-07 09:32:00 Test Item Value Reference Range Interpretation Comments Chloride Lvl (test code = Chloride Lvl) 104 95-109 [place] 006531-08-07 09:32:00 Test Item Value Reference Range Interpretation Comments CO2 (test code = CO2) 29 24-32 [place] 006531-08-07 09:32:00 Test Item Value Reference Range Interpretation Comments Calcium Lvl (test code = Calcium Lvl) 8.3 8.5-10.5 [place] 006531-08-07 09:32:00 Test Item Value Reference Range Interpretation Comments AGAP (test code = AGAP) 9.1 10.0-20.0 [place] 006531-08-07 09:32:00 Test Item Value Reference Range Interpretation Comments eGFR (test code = eGFR) 21 [place] 006531-08-07 09:32:00 Test Item Value Reference Range Interpretation Comments Magnesium Lvl (test code = Magnesium 2.2 1.8-2.4 Lvl) [place] 006531-08-07 09:32:00 Test Item Value Reference Range Interpretation Comments Phosphorus (test code = Phosphorus) 3.9 2.5-4.5 [place] 679791-08-07 09:32:00 Test Item Value Reference Range Interpretation Comments WBC (test code = WBC) 2.3 3.7-10.4 [place] 679791-08-07 09:32:00 Test Item Value Reference Range Interpretation Comments RBC (test code = RBC) 2.78 4.20-5.40 [place] 679791-08-07 09:32:00 Test Item Value Reference Range Interpretation Comments Hgb (test code = Hgb) 8.4 12.0-16.0 [place] 679791-08-07 09:32:00 Test Item Value Reference Range Interpretation Comments Hct (test code = Hct) 25.2 36.0-48.0 [place] 679791-08-07 09:32:00 Test Item Value Reference Range Interpretation Comments MCV (test code = MCV) 90.5 80.0-98.0 [place] 679791-08-07 09:32:00 Test Item Value Reference Range Interpretation Comments MCH (test code = MCH) 30.4 pg 27.0-31.0 [place] 679791-08-07 09:32:00 Test Item Value Reference Range Interpretation Comments MCHC (test code = MCHC) 33.5 32.0-36.0 [place] 679791-08-07 09:32:00 Test Item Value Reference Range Interpretation Comments RDW (test code = RDW) 19.0 11.5-14.5 [place] 679791-08-07 09:32:00 Test Item Value Reference Range Interpretation Comments Platelet (test code = Platelet) 87 133-450 [place] 679791-08-07 09:32:00 Test Item Value Reference Range Interpretation Comments MPV (test code = MPV) 10.0 7.4-10.4 [facility]2021-08-07 09:32:00 Test Item Value Reference Range Interpretation Comments Glucose Lvl (test code = Glucose Lvl) 59 70-99 [place] 006531-08-07 09:32:00 Test Item Value Reference Range Interpretation Comments BUN (test code = BUN) 11 7-22 [place] 006531-08-07 09:32:00 Test Item Value Reference Range Interpretation Comments Creatinine Lvl (test code = Creatinine 2.75 0.50-1.40 Lvl) [place] 006531-08-07 09:32:00 Test Item Value Reference Range Interpretation Comments Sodium Lvl (test code = Sodium Lvl) 138 135-145 [place] 006531-08-07 09:32:00 Test Item Value Reference Range Interpretation Comments Potassium Lvl (test code = Potassium 4.1 3.5-5.1 Lvl) [place] 006531-08-07 09:32:00 Test Item Value Reference Range Interpretation Comments Chloride Lvl (test code = Chloride Lvl) 104 95-109 [place] 006531-08-07 09:32:00 Test Item Value Reference Range Interpretation Comments CO2 (test code = CO2) 29 24-32 [place] 006531-08-07 09:32:00 Test Item Value Reference Range Interpretation Comments Calcium Lvl (test code = Calcium Lvl) 8.3 8.5-10.5 [place] 006531-08-07 09:32:00 Test Item Value Reference Range Interpretation Comments AGAP (test code = AGAP) 9.1 10.0-20.0 [place] 006531-08-07 09:32:00 Test Item Value Reference Range Interpretation Comments eGFR (test code = eGFR) 21 [place] 006531-08-07 09:32:00 Test Item Value Reference Range Interpretation Comments Magnesium Lvl (test code = Magnesium 2.2 1.8-2.4 Lvl) [place] 006531-08-07 09:32:00 Test Item Value Reference Range Interpretation Comments Phosphorus (test code = Phosphorus) 3.9 2.5-4.5 [place] 679791-08-07 09:32:00 Test Item Value Reference Range Interpretation Comments WBC (test code = WBC) 2.3 3.7-10.4 [place] 679791-08-07 09:32:00 Test Item Value Reference Range Interpretation Comments RBC (test code = RBC) 2.78 4.20-5.40 [place] 679791-08-07 09:32:00 Test Item Value Reference Range Interpretation Comments Hgb (test code = Hgb) 8.4 12.0-16.0 [place] [address]-08-07 09:32:00 Test Item Value Reference Range Interpretation Comments Hct (test code = Hct) 25.2 36.0-48.0 [place] [address]-08-07 09:32:00 Test Item Value Reference Range Interpretation Comments MCV (test code = MCV) 90.5 80.0-98.0 [facility]xaajsdOKKDPUQJFS6731-84-39 09:32:00 Test Item Value Reference Range Interpretation Comments MCH (test code = MCH) 30.4 pg 27.0-31.0 [facility]YhvccppACHEIDDEKX8117-84-89 09:32:00 Test Item Value Reference Range Interpretation Comments MCHC (test code = MCHC) 33.5 32.0-36.0 [facility]anoAwxalhdRERQNVWNTS1888-63-73 09:32:00 Test Item Value Reference Range Interpretation Comments RDW (test code = RDW) 19.0 11.5-14.5 [facility] CenterUdgcxkpMCZBYNZZOK6481-30-29 09:32:00 Test Item Value Reference Range Interpretation Comments Platelet (test code = Platelet) 87 133-450 [facility]anoAxooxzxBLFVYFOUQO0631-13-94 09:32:00 Test Item Value Reference Range Interpretation Comments MPV (test code = MPV) 10.0 7.4-10.4 [facility] KBQCCEB8742-40-06 05:33:00 Test Item Value Reference Range Interpretation Comments ABO/Rh (test code = ABO/Rh) B POS [facility] [employer] [id number] 05:33:00 Test Item Value Reference Range Interpretation Comments Antibody Scrn (test Negative (01/24/21 12:33 code = Antibody Scrn) AM) [facility] CenterWndswveSLFUFRGSMH0851-48-77 05:33:00 Test Item Value Reference Range Interpretation Comments Segs (test code = Segs) 60.2 45.0-75.0 [facility] CenterQyygnwoCQSVLHLSXT5231-28-70 05:33:00 Test Item Value Reference Range Interpretation Comments Lymphocytes (test code = Lymphocytes) 28.6 20.0-40.0 [facility] CenterOnishveWZKPRHZCRZ0683-96-69 05:33:00 Test Item Value Reference Range Interpretation Comments Monocytes (test code = Monocytes) 5.8 2.0-12.0 [facility] CenterCciicaeNXMLRMOYJM3043-25-09 05:33:00 Test Item Value Reference Range Interpretation Comments Eosinophils (test code = 4.2 See_Comment [A utomated message] The Eosinophils) system which ge nerated this result tra nsmitted reference range : <=4.0. The reference r leo was not used to int erpret this result as normal/abnormal . [facility]anoQzoxhnwJMWLFBQRDI1514-32-22 05:33:00 Test Item Value Reference Range Interpretation Comments Basophils (test code = 1.2 See_Comment [Aut omated message] The Basophils) system which ge nerated this result tra nsmitted reference range : <=1.0. The reference r leo was not used to int erpret this result as normal/abnormal . [facility]anoUmcopciXLOCAKZTEW9090-49-39 05:33:00 Test Item Value Reference Range Interpretation Comments Neutrophils # (test code = Neutrophils 2.2 1.5-8.1 #) [facility]anoTotfmkmVEIFOHTJUT5962-14-90 05:33:00 Test Item Value Reference Range Interpretation Comments Lymphocytes # (test code = Lymphocytes 1.1 1.0-5.5 #) [facility]anoWldgpvtVOPWNFOJBP2289-90-95 05:33:00 Test Item Value Reference Range Interpretation Comments Monocytes # (test code 0.2 See_Comment [Aut omated message] The = Monocytes #) system which generated this result tra nsmitted reference range : <=0.8. The reference r leo was not used to int erpret this result as normal/abnormal . [facility]anoVteqajqCGPVCLVHPN1889-78-70 05:33:00 Test Item Value Reference Range Interpretation Comments Eosinophils # (test code 0.2 See_Comment [A utomated message] The = Eosinophils #) system whic h generated this result tra nsmitted reference range : <=0.5. The reference r leo was not used to int erpret this result as normal/abnormal . [facility] ZKDXXJY7858-75-34 05:33:00 Test Item Value Reference Range Interpretation Comments ABO/Rh (test code = ABO/Rh) B POS [facility]Spr[facility] [id number] 05:33:00 Test Item Value Reference Range Interpretation Comments Antibody Scrn (test Negative (01/24/21 12:33 code = Antibody Scrn) AM) [facility]anoRqqhgizNTYDHHEBFR3106-94-18 05:33:00 Test Item Value Reference Range Interpretation Comments Segs (test code = Segs) 60.2 45.0-75.0 [facility]anoSitmkmtWXLIFCTZLC9835-64-71 05:33:00 Test Item Value Reference Range Interpretation Comments Lymphocytes (test code = Lymphocytes) 28.6 20.0-40.0 [facility]anoRubvglqKAPQDOKKPH6327-80-56 05:33:00 Test Item Value Reference Range Interpretation Comments Monocytes (test code = Monocytes) 5.8 2.0-12.0 [facility]anoGwrbjzlXXRDIEMNYH7952-20-67 05:33:00 Test Item Value Reference Range Interpretation Comments Eosinophils (test code = 4.2 See_Comment [A utomated message] The Eosinophils) system which ge nerated this result tra nsmitted reference range : <=4.0. The reference r leo was not used to int erpret this result as normal/abnormal . [facility]anoKbcptfmEYMPNPNQXM9203-61-62 05:33:00 Test Item Value Reference Range Interpretation Comments Basophils (test code = 1.2 See_Comment [Aut omated message] The Basophils) system which ge nerated this result tra nsmitted reference range : <=1.0. The reference r leo was not used to int erpret this result as normal/abnormal . [facility]anoXdxjntkKQRWMFVPTG6621-36-03 05:33:00 Test Item Value Reference Range Interpretation Comments Neutrophils # (test code = Neutrophils 2.2 1.5-8.1 #) [facility]anoNxscahtBDWMXNBOBS2933-57-94 05:33:00 Test Item Value Reference Range Interpretation Comments Lymphocytes # (test code = Lymphocytes 1.1 1.0-5.5 #) [facility]anoNzeuzqgXXYYPIBOVP8709-86-17 05:33:00 Test Item Value Reference Range Interpretation Comments Monocytes # (test code 0.2 See_Comment [Aut omated message] The = Monocytes #) system which generated this result tra nsmitted reference range : <=0.8. The reference r leo was not used to int erpret this result as normal/abnormal . [facility]anoBvdxbbiGLWZFSNJCE0352-26-24 05:33:00 Test Item Value Reference Range Interpretation Comments Eosinophils # (test code 0.2 See_Comment [A utomated message] The = Eosinophils #) system whic h generated this result tra nsmitted reference range : <=0.5. The reference r leo was not used to int erpret this result as normal/abnormal . [facility] [id number] 05:33:00 Test Item Value Reference Range Interpretation Comments ABO/Rh (test code = ABO/Rh) B POS [facility] B[facility] [id number] 05:33:00 Test Item Value Reference Range Interpretation Comments Antibody Scrn (test Negative (01/24/21 12:33 code = Antibody Scrn) AM) [facility]anoApfrkzbJCUIHBUISF7321-15-27 05:33:00 Test Item Value Reference Range Interpretation Comments Segs (test code = Segs) 60.2 45.0-75.0 [facility]anoZisgqhoZOLZEOPUTZ9025-22-83 05:33:00 Test Item Value Reference Range Interpretation Comments Lymphocytes (test code = Lymphocytes) 28.6 20.0-40.0 [facility] PlanoJucoeaoGFOXKXTROQ9294-36-29 05:33:00 Test Item Value Reference Range Interpretation Comments Monocytes (test code = Monocytes) 5.8 2.0-12.0 [facility] PlanoGyssyqiPORWAGJSPE1866-32-51 05:33:00 Test Item Value Reference Range Interpretation Comments Eosinophils (test code = 4.2 See_Comment [A utomated message] The Eosinophils) system which ge nerated this result tra nsmitted reference range : <=4.0. The reference r leo was not used to int erpret this result as normal/abnormal . [facility]anoJydwnpzTAEYXAIXST9233-51-62 05:33:00 Test Item Value Reference Range Interpretation Comments Basophils (test code = 1.2 See_Comment [Aut omated message] The Basophils) system which ge nerated this result tra nsmitted reference range : <=1.0. The reference r leo was not used to int erpret this result as normal/abnormal . [facility]anoUmixojdWZNEOVOPGF4449-32-38 05:33:00 Test Item Value Reference Range Interpretation Comments Neutrophils # (test code = Neutrophils 2.2 1.5-8.1 #) [facility]anoKbqvzzsZXNTQJYJXG9365-66-88 05:33:00 Test Item Value Reference Range Interpretation Comments Lymphocytes # (test code = Lymphocytes 1.1 1.0-5.5 #) [facility]anoThlfulzSIZBJJFPEZ9730-32-96 05:33:00 Test Item Value Reference Range Interpretation Comments Monocytes # (test code 0.2 See_Comment [Aut omated message] The = Monocytes #) system which generated this result tra nsmitted reference range : <=0.8. The reference r leo was not used to int erpret this result as normal/abnormal . [facility] PlanoFmjnxhkVZQSCKVTBV5320-89-45 05:33:00 Test Item Value Reference Range Interpretation Comments Eosinophils # (test code 0.2 See_Comment [A utomated message] The = Eosinophils #) system whic h generated this result tra nsmitted reference range : <=0.5. The reference r leo was not used to int erpret this result as normal/abnormal . [facility] [id number] 05:33:00 Test Item Value Reference Range Interpretation Comments ABO/Rh (test code = ABO/Rh) B POS [facility] [id number] 05:33:00 Test Item Value Reference Range Interpretation Comments Antibody Scrn (test Negative (01/24/21 12:33 code = Antibody Scrn) AM) [facility]anoLsxywwsQVAFCIAQKT2196-50-10 05:33:00 Test Item Value Reference Range Interpretation Comments Segs (test code = Segs) 60.2 45.0-75.0 [facility] PlanoHofktmzTIEGVVQYMV9490-79-93 05:33:00 Test Item Value Reference Range Interpretation Comments Lymphocytes (test code = Lymphocytes) 28.6 20.0-40.0 [facility]VedbwqtKVOMGXHODU2193-80-33 05:33:00 Test Item Value Reference Range Interpretation Comments Monocytes (test code = Monocytes) 5.8 2.0-12.0 [facility]anoGsvlcovOLAKOLSYCH2217-08-33 05:33:00 Test Item Value Reference Range Interpretation Comments Eosinophils (test code = 4.2 See_Comment [A utomated message] The Eosinophils) system which ge nerated this result tra nsmitted reference range : <=4.0. The reference r leo was not used to int erpret this result as normal/abnormal . [facility]anoVfgayhwAVKWSKNUZI9995-15-00 05:33:00 Test Item Value Reference Range Interpretation Comments Basophils (test code = 1.2 See_Comment [Aut omated message] The Basophils) system which ge nerated this result tra nsmitted reference range : <=1.0. The reference r leo was not used to int erpret this result as normal/abnormal . [facility]anoVmfkmwaKTZSPZZHPK1769-93-40 05:33:00 Test Item Value Reference Range Interpretation Comments Neutrophils # (test code = Neutrophils 2.2 1.5-8.1 #) [facility]anoNlzosqhURZDELHHGZ0323-13-58 05:33:00 Test Item Value Reference Range Interpretation Comments Lymphocytes # (test code = Lymphocytes 1.1 1.0-5.5 #) [facility]anoQafczsgTJAAXCYPDB0239-43-14 05:33:00 Test Item Value Reference Range Interpretation Comments Monocytes # (test code 0.2 See_Comment [Aut omated message] The = Monocytes #) system which generated this result tra nsmitted reference range : <=0.8. The reference r leo was not used to int erpret this result as normal/abnormal . [facility]anoHdbvxhoDGHZCIFLWX6864-11-51 05:33:00 Test Item Value Reference Range Interpretation Comments Eosinophils # (test code 0.2 See_Comment [A utomated message] The = Eosinophils #) system whic h generated this result tra nsmitted reference range : <=0.5. The reference r leo was not used to int erpret this result as normal/abnormal . [facility]2021-08-06 05:33:00 Test Item Value Reference Range Interpretation Comments ABO/Rh (test code = ABO/Rh) B POS [facility] [id number] 05:33:00 Test Item Value Reference Range Interpretation Comments Antibody Scrn (test Negative (01/24/21 12:33 code = Antibody Scrn) AM) [facility]anoYdweqggPVRZEXAIIM7261-26-59 05:33:00 Test Item Value Reference Range Interpretation Comments Segs (test code = Segs) 60.2 45.0-75.0 [facility]anoLsjzlujOYDYHNHXMZ1215-63-72 05:33:00 Test Item Value Reference Range Interpretation Comments Lymphocytes (test code = Lymphocytes) 28.6 20.0-40.0 [facility]anoXjbhmztARTKMJZFPP7620-78-17 05:33:00 Test Item Value Reference Range Interpretation Comments Monocytes (test code = Monocytes) 5.8 2.0-12.0 [facility]anoTystelhZVWCSPLJSF5122-07-52 05:33:00 Test Item Value Reference Range Interpretation Comments Eosinophils (test code = 4.2 See_Comment [A utomated message] The Eosinophils) system which ge nerated this result tra nsmitted reference range : <=4.0. The reference r leo was not used to int erpret this result as normal/abnormal . [facility]anoBkhlhosYTUIJERYMU9745-72-35 05:33:00 Test Item Value Reference Range Interpretation Comments Basophils (test code = 1.2 See_Comment [Aut omated message] The Basophils) system which ge nerated this result tra nsmitted reference range : <=1.0. The reference r leo was not used to int erpret this result as normal/abnormal . [facility]anoXyjxknfTSJKOQVJBV2318-95-85 05:33:00 Test Item Value Reference Range Interpretation Comments Neutrophils # (test code = Neutrophils 2.2 1.5-8.1 #) [facility]anoMjzohvgPNJQNQRJAD6967-04-43 05:33:00 Test Item Value Reference Range Interpretation Comments Lymphocytes # (test code = Lymphocytes 1.1 1.0-5.5 #) [facility]anoYpahkaqCYVUAHDIQG0303-88-10 05:33:00 Test Item Value Reference Range Interpretation Comments Monocytes # (test code 0.2 See_Comment [Aut omated message] The = Monocytes #) system which generated this result tra nsmitted reference range : <=0.8. The reference r leo was not used to int erpret this result as normal/abnormal . [facility]anoHlmwtihPZCXJXTUJW6749-49-04 05:33:00 Test Item Value Reference Range Interpretation Comments Eosinophils # (test code 0.2 See_Comment [A utomated message] The = Eosinophils #) system whic h generated this result tra nsmitted reference range : <=0.5. The reference r leo was not used to int erpret this result as normal/abnormal . [facility]anoUttkzlfJWRJFKLKBL8176-59-45 05:53:00 Test Item Value Reference Range Interpretation Comments PT (test code = PT) 14.4 s 12.0-14.7 [facility]anoDjaopctFXAOSJLLFC2013-85-30 05:53:00 Test Item Value Reference Range Interpretation Comments INR (test code = INR) 1.13 1 0.85-1.17 [facility]anoCozbwpdMUMAVBQQKA6051-14-10 05:53:00 Test Item Value Reference Range Interpretation Comments Fibrinogen Lvl (test code = Fibrinogen 319 230-510 Lvl) [facility]anoTcwreqqQDHWCUXQVW9488-88-59 05:53:00 Test Item Value Reference Range Interpretation Comments Thrombin Time (test code = Thrombin 15.9 s 15.0-21.2 Time) [facility]anoMaustdyZUMKYHCUVG7328-37-26 05:53:00 Test Item Value Reference Range Interpretation Comments PTT (test code = PTT) 47.0 s 22.9-35.8 [facility]anoMtrixsuYRZLFXHBUD3141-21-35 05:53:00 Test Item Value Reference Range Interpretation Comments D-Dimer (test code = D-Dimer) 0.91 [facility]anoSnmuojoDZEMVZMOEU6768-45-32 05:53:00 Test Item Value Reference Range Interpretation Comments Basophils # (test code 0.1 See_Comment [Aut omated message] The = Basophils #) system which generated this result tra nsmitted reference range : <=0.2. The reference r leo was not used to int erpret this result as normal/abnormal . [facility]2021-08-05 05:53:00 Test Item Value Reference Range Interpretation Comments Ca Ion WB (test code = Ca Ion WB) 1.24 1.05-1.25 [facility]2021-08-05 05:53:00 Test Item Value Reference Range Interpretation Comments Ca Norm WB (test code = Ca Norm WB) 1.25 1.05-1.25 [place] 679791-08-05 05:53:00 Test Item Value Reference Range Interpretation Comments PT (test code = PT) 14.4 s 12.0-14.7 [facility]anoZjulwmjQWHIVZUQNH6607-71-05 05:53:00 Test Item Value Reference Range Interpretation Comments INR (test code = INR) 1.13 1 0.85-1.17 [facility]anoMcmykrkWVPAKMFRPH2572-06-79 05:53:00 Test Item Value Reference Range Interpretation Comments Fibrinogen Lvl (test code = Fibrinogen 319 230-510 Lvl) [facility]anoFdlszajWDKOFKOFKZ4099-31-91 05:53:00 Test Item Value Reference Range Interpretation Comments Thrombin Time (test code = Thrombin 15.9 s 15.0-21.2 Time) [facility]anoEgrachiYDHHXXLTWJ8984-25-14 05:53:00 Test Item Value Reference Range Interpretation Comments PTT (test code = PTT) 47.0 s 22.9-35.8 [place] 679791-08-05 05:53:00 Test Item Value Reference Range Interpretation Comments D-Dimer (test code = D-Dimer) 0.91 [place] 679791-08-05 05:53:00 Test Item Value Reference Range Interpretation Comments Basophils # (test code 0.1 See_Comment [Aut omated message] The = Basophils #) system which generated this result tra nsmitted reference range : <=0.2. The reference r leo was not used to int erpret this result as normal/abnormal . [facility]2021-08-05 05:53:00 Test Item Value Reference Range Interpretation Comments Ca Ion WB (test code = Ca Ion WB) 1.24 1.05-1.25 [facility]2021-08-05 05:53:00 Test Item Value Reference Range Interpretation Comments Ca Norm WB (test code = Ca Norm WB) 1.25 1.05-1.25 [facility]anoBofroqnPMREVDUQYL1049-95-06 05:53:00 Test Item Value Reference Range Interpretation Comments PT (test code = PT) 14.4 s 12.0-14.7 [facility]anoEzxlgmiNNMRCQSWUA9941-36-98 05:53:00 Test Item Value Reference Range Interpretation Comments INR (test code = INR) 1.13 1 0.85-1.17 [facility]anoVnbfzomNXUWUVNBUJ4795-04-21 05:53:00 Test Item Value Reference Range Interpretation Comments Fibrinogen Lvl (test code = Fibrinogen 319 230-510 Lvl) [facility]anoThvlpihVZINITHFAY9720-34-75 05:53:00 Test Item Value Reference Range Interpretation Comments Thrombin Time (test code = Thrombin 15.9 s 15.0-21.2 Time) [facility]anoMomldxsBCTKNCHNTL1797-78-73 05:53:00 Test Item Value Reference Range Interpretation Comments PTT (test code = PTT) 47.0 s 22.9-35.8 [place] 679791-08-05 05:53:00 Test Item Value Reference Range Interpretation Comments D-Dimer (test code = D-Dimer) 0.91 [place] 679791-08-05 05:53:00 Test Item Value Reference Range Interpretation Comments Basophils # (test code 0.1 See_Comment [Aut omated message] The = Basophils #) system which generated this result tra nsmitted reference range : <=0.2. The reference r leo was not used to int erpret this result as normal/abnormal . [facility]2021-08-05 05:53:00 Test Item Value Reference Range Interpretation Comments Ca Ion WB (test code = Ca Ion WB) 1.24 1.05-1.25 [facility]2021-08-05 05:53:00 Test Item Value Reference Range Interpretation Comments Ca Norm WB (test code = Ca Norm WB) 1.25 1.05-1.25 [facility]anoJjkibzjBCSJGTGAIU9208-52-27 05:53:00 Test Item Value Reference Range Interpretation Comments PT (test code = PT) 14.4 s 12.0-14.7 [facility]anoMtevathUHOORNNQOG1223-36-08 05:53:00 Test Item Value Reference Range Interpretation Comments INR (test code = INR) 1.13 1 0.85-1.17 [facility]anoErmsmycGYOAHASALH6272-11-06 05:53:00 Test Item Value Reference Range Interpretation Comments Fibrinogen Lvl (test code = Fibrinogen 319 230-510 Lvl) [facility]anoRopuoolASCORDUEBB1300-66-35 05:53:00 Test Item Value Reference Range Interpretation Comments Thrombin Time (test code = Thrombin 15.9 s 15.0-21.2 Time) [facility]anoPfrmskqPLYIGFTNLP4926-84-14 05:53:00 Test Item Value Reference Range Interpretation Comments PTT (test code = PTT) 47.0 s 22.9-35.8 [facility]anoIpsnewcGUENRGGYEX3496-47-99 05:53:00 Test Item Value Reference Range Interpretation Comments D-Dimer (test code = D-Dimer) 0.91 [facility]anoSmioaafORWYEVQBJF2965-85-63 05:53:00 Test Item Value Reference Range Interpretation Comments Basophils # (test code 0.1 See_Comment [Aut omated message] The = Basophils #) system which generated this result tra nsmitted reference range : <=0.2. The reference r leo was not used to int erpret this result as normal/abnormal . [facility]2021-08-05 05:53:00 Test Item Value Reference Range Interpretation Comments Ca Ion WB (test code = Ca Ion WB) 1.24 1.05-1.25 [facility]2021-08-05 05:53:00 Test Item Value Reference Range Interpretation Comments Ca Norm WB (test code = Ca Norm WB) 1.25 1.05-1.25 [facility]anoWycydipMAFCKUXVLZ9006-26-72 05:53:00 Test Item Value Reference Range Interpretation Comments PT (test code = PT) 14.4 s 12.0-14.7 [facility]anoGbuwaaoPVVRXUGJAA4985-65-22 05:53:00 Test Item Value Reference Range Interpretation Comments INR (test code = INR) 1.13 1 0.85-1.17 [facility]anoAhlvdxkQBOCAGCMXU5808-28-30 05:53:00 Test Item Value Reference Range Interpretation Comments Fibrinogen Lvl (test code = Fibrinogen 319 230-510 Lvl) [facility]anoLsjcuozDHLNCANPIP3155-67-89 05:53:00 Test Item Value Reference Range Interpretation Comments Thrombin Time (test code = Thrombin 15.9 s 15.0-21.2 Time) [facility]anoGkmkoerRCFPEQEDKX5231-83-73 05:53:00 Test Item Value Reference Range Interpretation Comments PTT (test code = PTT) 47.0 s 22.9-35.8 [facility]anoChgolznEPZNOQCVCG1434-19-60 05:53:00 Test Item Value Reference Range Interpretation Comments D-Dimer (test code = D-Dimer) 0.91 [place] 679791-08-05 05:53:00 Test Item Value Reference Range Interpretation Comments Basophils # (test code 0.1 See_Comment [Aut omated message] The = Basophils #) system which generated this result tra nsmitted reference range : <=0.2. The reference r leo was not used to int erpret this result as normal/abnormal . [facility] BPOJNXN6978-99-42 05:53:00 Test Item Value Reference Range Interpretation Comments Ca Ion WB (test code = Ca Ion WB) 1.24 1.05-1.25 [facility] CenterXiantROID JNLMZTG0499-25-74 05:53:00 Test Item Value Reference Range Interpretation Comments Ca Norm WB (test code = Ca Norm WB) 1.25 1.05-1.25 [facility] [employer] [id number] 10:09:00 Test Item Value Reference Range Interpretation Comments ALT (test code = ALT) 49 See_Comment [Auto mated message] The system which ge nerated this result transmit rohit reference range : <=65. The reference range was not used to interpr et this result as reji l/abnormal. [facility] [id number] 10:09:00 Test Item Value Reference Range Interpretation Comments Albumin Lvl (test code = Albumin Lvl) 2.8 3.5-5.0 [facility] [employer] [id number] 10:09:00 Test Item Value Reference Range Interpretation Comments Alk Phos (test code = Alk Phos) 41 39-136 [facility] [id number] 10:09:00 Test Item Value Reference Range Interpretation Comments Bili Direct (test code 0.2 See_Comment [Aut omated message] The = Bili Direct) system which generated this result tra nsmitted reference range : <=0.3. The reference r leo was not used to int erpret this result as reji l/abnormal. [facility] [employer] [id number] 10:09:00 Test Item Value Reference Range Interpretation Comments Bili Total (test code = Bili Total) 0.6 0.2-1.3 [facility] [id number] 10:09:00 Test Item Value Reference Range Interpretation Comments Bili Indirect (test 0.4 See_Comment [Automa rohit message] The code = Bili Indirect) system which generated this result tra nsmitted reference range : <=1.0. The reference r leo was not used to int erpret this result as normal/abnormal . [facility] [employer] [id number] 10:09:00 Test Item Value Reference Range Interpretation Comments Total Protein (test code = Total 5.6 6.4-8.4 Protein) [facility] [id number] 10:09:00 Test Item Value Reference Range Interpretation Comments AST (test code = AST) 33 See_Comment [Auto mated message] The system which ge nerated this result transmit rohit reference range : <=37. The reference range was not used to interpr et this result as reji l/abnormal. [facility] [employer] [id number] 10:09:00 Test Item Value Reference Range Interpretation Comments Globulin (test code = Globulin) 2.8 2.7-4.2 [facility] [id number] 10:09:00 Test Item Value Reference Range Interpretation Comments A/G Ratio (test code = A/G Ratio) 1.0 1 0.7-1.6 [facility] [employer] [id number] 10:09:00 Test Item Value Reference Range Interpretation Comments Amylase Lvl (test code = Amylase Lvl) 19 25-115 [facility] [id number] 10:09:00 Test Item Value Reference Range Interpretation Comments Lipase Lvl (test code = Lipase Lvl) no gt 73-393 [facility] CenterHhyzyxsHSFDJYYYKT6984-10-03 10:09:00 Test Item Value Reference Range Interpretation Comments PTT (test code = PTT) 41.4 s 22.9-35.8 [facility] CenterFhsclgfBUDAROTNPR7906-49-69 10:09:00 Test Item Value Reference Range Interpretation Comments PT (test code = PT) 15.4 s 12.0-14.7 [facility] CenterZhthgacCJTOHDDNDU1620-33-77 10:09:00 Test Item Value Reference Range Interpretation Comments INR (test code = INR) 1.24 1 0.85-1.17 [facility] CenterWevcntfFOKRTWYYPO5457-22-87 10:09:00 Test Item Value Reference Range Interpretation Comments Fibrinogen Lvl (test code = Fibrinogen 312 230-510 Lvl) [facility] CenterHueyevwNDTDUJISLC0649-40-24 10:09:00 Test Item Value Reference Range Interpretation Comments Thrombin Time (test code = Thrombin 16.6 s 15.0-21.2 Time) [facility]anoGkfgqbbYHSIOFADAL3315-31-04 10:09:00 Test Item Value Reference Range Interpretation Comments D-Dimer (test code = D-Dimer) 4.91 [facility] CenterTewkolzEQYJZNDFCX9089-35-46 10:09:00 Test Item Value Reference Range Interpretation Comments Basophils # (test code 0.1 See_Comment [Aut omated message] The = Basophils #) system which generated this result tra nsmitted reference range : <=0.2. The reference r leo was not used to int erpret this result as normal/abnormal . [facility] [id number] 10:09:00 Test Item Value Reference Range Interpretation Comments Hgb A1C (test code = Hgb A1C) 5.6 [facility] [id number] 10:09:00 Test Item Value Reference Range Interpretation Comments ALT (test code = ALT) 49 See_Comment [Auto mated message] The system which ge nerated this result transmit rohit reference range : <=65. The reference range was not used to interpr et this result as reji l/abnormal. [facility] [id number] 10:09:00 Test Item Value Reference Range Interpretation Comments Albumin Lvl (test code = Albumin Lvl) 2.8 3.5-5.0 [facility] [id number] 10:09:00 Test Item Value Reference Range Interpretation Comments Alk Phos (test code = Alk Phos) 41 39-136 [facility] [id number] 10:09:00 Test Item Value Reference Range Interpretation Comments Bili Direct (test code 0.2 See_Comment [Aut omated message] The = Bili Direct) system which generated this result tra nsmitted reference range : <=0.3. The reference r leo was not used to int erpret this result as reji l/abnormal. [facility] [id number] 10:09:00 Test Item Value Reference Range Interpretation Comments Bili Total (test code = Bili Total) 0.6 0.2-1.3 [facility] [id number] 10:09:00 Test Item Value Reference Range Interpretation Comments Bili Indirect (test 0.4 See_Comment [Automa rohit message] The code = Bili Indirect) system which generated this result tra nsmitted reference range : <=1.0. The reference r leo was not used to int erpret this result as normal/abnormal . [facility] [id number] 10:09:00 Test Item Value Reference Range Interpretation Comments Total Protein (test code = Total 5.6 6.4-8.4 Protein) [facility] [id number] 10:09:00 Test Item Value Reference Range Interpretation Comments AST (test code = AST) 33 See_Comment [Auto mated message] The system which ge nerated this result transmit rohit reference range : <=37. The reference range was not used to interpr et this result as reji l/abnormal. [facility] [id number] 10:09:00 Test Item Value Reference Range Interpretation Comments Globulin (test code = Globulin) 2.8 2.7-4.2 [facility] [id number] 10:09:00 Test Item Value Reference Range Interpretation Comments A/G Ratio (test code = A/G Ratio) 1.0 1 0.7-1.6 [facility] [id number] 10:09:00 Test Item Value Reference Range Interpretation Comments Amylase Lvl (test code = Amylase Lvl) 19 25-115 [facility] [id number] 10:09:00 Test Item Value Reference Range Interpretation Comments Lipase Lvl (test code = Lipase Lvl) no gt 73-393 [facility] CenterYfvefiyBGNHEBHQKL1039-08-85 10:09:00 Test Item Value Reference Range Interpretation Comments PTT (test code = PTT) 41.4 s 22.9-35.8 [facility] CenterQiisqroAAFJKVRZEM9893-06-68 10:09:00 Test Item Value Reference Range Interpretation Comments PT (test code = PT) 15.4 s 12.0-14.7 [facility] CenterFjebuhfLJGCKEBRVA6582-77-09 10:09:00 Test Item Value Reference Range Interpretation Comments INR (test code = INR) 1.24 1 0.85-1.17 [facility] CenterYkorocaNCINAFXTCT5017-10-91 10:09:00 Test Item Value Reference Range Interpretation Comments Fibrinogen Lvl (test code = Fibrinogen 312 230-510 Lvl) [facility] CenterAaawnarRSSEQLVCRU3751-14-70 10:09:00 Test Item Value Reference Range Interpretation Comments Thrombin Time (test code = Thrombin 16.6 s 15.0-21.2 Time) [facility] CenterZyztenfUUNVPTGDMX1487-69-79 10:09:00 Test Item Value Reference Range Interpretation Comments D-Dimer (test code = D-Dimer) 4.91 [facility] CenterZfszpofUSRPGKEFCL6438-53-09 10:09:00 Test Item Value Reference Range Interpretation Comments Basophils # (test code 0.1 See_Comment [Aut omated message] The = Basophils #) system which generated this result tra nsmitted reference range : <=0.2. The reference r leo was not used to int erpret this result as normal/abnormal . [facility] [id number] 10:09:00 Test Item Value Reference Range Interpretation Comments Hgb A1C (test code = Hgb A1C) 5.6 [facility] [id number] 10:09:00 Test Item Value Reference Range Interpretation Comments ALT (test code = ALT) 49 See_Comment [Auto mated message] The system which ge nerated this result transmit rohit reference range : <=65. The reference range was not used to interpr et this result as reji l/abnormal. [facility] [id number] 10:09:00 Test Item Value Reference Range Interpretation Comments Albumin Lvl (test code = Albumin Lvl) 2.8 3.5-5.0 [facility]2021-08-04 10:09:00 Test Item Value Reference Range Interpretation Comments Alk Phos (test code = Alk Phos) 41 39-136 [facility]2021-08-04 10:09:00 Test Item Value Reference Range Interpretation Comments Bili Direct (test code 0.2 See_Comment [Aut omated message] The = Bili Direct) system which generated this result tra nsmitted reference range : <=0.3. The reference r leo was not used to int erpret this result as reji l/abnormal. [facility] [id number] 10:09:00 Test Item Value Reference Range Interpretation Comments Bili Total (test code = Bili Total) 0.6 0.2-1.3 [facility] [id number] 10:09:00 Test Item Value Reference Range Interpretation Comments Bili Indirect (test 0.4 See_Comment [Automa rohit message] The code = Bili Indirect) system which generated this result tra nsmitted reference range : <=1.0. The reference r leo was not used to int erpret this result as normal/abnormal . [facility] [id number] 10:09:00 Test Item Value Reference Range Interpretation Comments Total Protein (test code = Total 5.6 6.4-8.4 Protein) [facility] [id number] 10:09:00 Test Item Value Reference Range Interpretation Comments AST (test code = AST) 33 See_Comment [Auto mated message] The system which ge nerated this result transmit rohit reference range : <=37. The reference range was not used to interpr et this result as reji l/abnormal. [facility] [id number] 10:09:00 Test Item Value Reference Range Interpretation Comments Globulin (test code = Globulin) 2.8 2.7-4.2 [facility] [id number] 10:09:00 Test Item Value Reference Range Interpretation Comments A/G Ratio (test code = A/G Ratio) 1.0 1 0.7-1.6 [facility] [id number] 10:09:00 Test Item Value Reference Range Interpretation Comments Amylase Lvl (test code = Amylase Lvl) 19 25-115 [facility] [id number] 10:09:00 Test Item Value Reference Range Interpretation Comments Lipase Lvl (test code = Lipase Lvl) no gt 73-393 [facility]NogdyvlTQXGTJWCNT2308-10-79 10:09:00 Test Item Value Reference Range Interpretation Comments PTT (test code = PTT) 41.4 s 22.9-35.8 [facility]anoWtwgzkkQWLWPAFLAO9411-29-50 10:09:00 Test Item Value Reference Range Interpretation Comments PT (test code = PT) 15.4 s 12.0-14.7 [facility]anoVasndqsVCQAGDPXDE4783-08-23 10:09:00 Test Item Value Reference Range Interpretation Comments INR (test code = INR) 1.24 1 0.85-1.17 [facility]anoNfcsqjuXODTZYAXYC1835-74-38 10:09:00 Test Item Value Reference Range Interpretation Comments Fibrinogen Lvl (test code = Fibrinogen 312 230-510 Lvl) [facility]zwARRVQXSALC2067-81-76 10:09:00 Test Item Value Reference Range Interpretation Comments Thrombin Time (test code = Thrombin 16.6 s 15.0-21.2 Time) [facility]anoCnctaufNDMVZSBUFA3428-56-64 10:09:00 Test Item Value Reference Range Interpretation Comments D-Dimer (test code = D-Dimer) 4.91 [facility]anoKoxjzteNWVOUSKZHO0213-45-25 10:09:00 Test Item Value Reference Range Interpretation Comments Basophils # (test code 0.1 See_Comment [Aut omated message] The = Basophils #) system which generated this result tra nsmitted reference range : <=0.2. The reference r leo was not used to int erpret this result as normal/abnormal . [facility] TFUZUIVPN3855-02-94 10:09:00 Test Item Value Reference Range Interpretation Comments Hgb A1C (test code = Hgb A1C) 5.6 [facility] [id number] 10:09:00 Test Item Value Reference Range Interpretation Comments ALT (test code = ALT) 49 See_Comment [Auto mated message] The system which ge nerated this result transmit rohit reference range : <=65. The reference range was not used to interpr et this result as reji l/abnormal. [place] 006531-08-04 10:09:00 Test Item Value Reference Range Interpretation Comments Albumin Lvl (test code = Albumin Lvl) 2.8 3.5-5.0 [place] 006531-08-04 10:09:00 Test Item Value Reference Range Interpretation Comments Alk Phos (test code = Alk Phos) 41 39-136 [place] 006531-08-04 10:09:00 Test Item Value Reference Range Interpretation Comments Bili Direct (test code 0.2 See_Comment [Aut omated message] The = Bili Direct) system which generated this result tra nsmitted reference range : <=0.3. The reference r leo was not used to int erpret this result as reji l/abnormal. [place] 006531-08-04 10:09:00 Test Item Value Reference Range Interpretation Comments Bili Total (test code = Bili Total) 0.6 0.2-1.3 [place] 006531-08-04 10:09:00 Test Item Value Reference Range Interpretation Comments Bili Indirect (test 0.4 See_Comment [Automa rohit message] The code = Bili Indirect) system which generated this result tra nsmitted reference range : <=1.0. The reference r leo was not used to int erpret this result as normal/abnormal . [place] 006531-08-04 10:09:00 Test Item Value Reference Range Interpretation Comments Total Protein (test code = Total 5.6 6.4-8.4 Protein) [place] 006531-08-04 10:09:00 Test Item Value Reference Range Interpretation Comments AST (test code = AST) 33 See_Comment [Auto mated message] The system which ge nerated this result transmit rohit reference range : <=37. The reference range was not used to interpr et this result as reji l/abnormal. [place] 006531-08-04 10:09:00 Test Item Value Reference Range Interpretation Comments Globulin (test code = Globulin) 2.8 2.7-4.2 [place] 006531-08-04 10:09:00 Test Item Value Reference Range Interpretation Comments A/G Ratio (test code = A/G Ratio) 1.0 1 0.7-1.6 [facility] [id number] 10:09:00 Test Item Value Reference Range Interpretation Comments Amylase Lvl (test code = Amylase Lvl) 19 25-115 [facility] [id number] 10:09:00 Test Item Value Reference Range Interpretation Comments Lipase Lvl (test code = Lipase Lvl) no gt 73-393 [facility]anoBzhixnqMRDIMATKOU3083-95-20 10:09:00 Test Item Value Reference Range Interpretation Comments PTT (test code = PTT) 41.4 s 22.9-35.8 [facility]anoHazffnuGNFSYHHELB4490-83-94 10:09:00 Test Item Value Reference Range Interpretation Comments PT (test code = PT) 15.4 s 12.0-14.7 [facility]anoKgjodvsSNRUPZJJST1637-49-35 10:09:00 Test Item Value Reference Range Interpretation Comments INR (test code = INR) 1.24 1 0.85-1.17 [facility]anoWemhtgsUSVIIEUKBN6765-73-64 10:09:00 Test Item Value Reference Range Interpretation Comments Fibrinogen Lvl (test code = Fibrinogen 312 230-510 Lvl) [facility] CenterOdouwaoFUMBWXKBVX6255-41-18 10:09:00 Test Item Value Reference Range Interpretation Comments Thrombin Time (test code = Thrombin 16.6 s 15.0-21.2 Time) [facility]anoNwyjwpcSPUDGXFWRA0419-95-25 10:09:00 Test Item Value Reference Range Interpretation Comments D-Dimer (test code = D-Dimer) 4.91 [facility]anoFrblktqRMNWPXNGFL8794-98-73 10:09:00 Test Item Value Reference Range Interpretation Comments Basophils # (test code 0.1 See_Comment [Aut omated message] The = Basophils #) system which generated this result tra nsmitted reference range : <=0.2. The reference r leo was not used to int erpret this result as normal/abnormal . [facility] [id number] 10:09:00 Test Item Value Reference Range Interpretation Comments Hgb A1C (test code = Hgb A1C) 5.6 [facility] [id number] 10:09:00 Test Item Value Reference Range Interpretation Comments ALT (test code = ALT) 49 See_Comment [Auto mated message] The system which ge nerated this result transmit rohit reference range : <=65. The reference range was not used to interpr et this result as reji l/abnormal. [place] 006531-08-04 10:09:00 Test Item Value Reference Range Interpretation Comments Albumin Lvl (test code = Albumin Lvl) 2.8 3.5-5.0 [place] 006531-08-04 10:09:00 Test Item Value Reference Range Interpretation Comments Alk Phos (test code = Alk Phos) 41 39-136 [place] 006531-08-04 10:09:00 Test Item Value Reference Range Interpretation Comments Bili Direct (test code 0.2 See_Comment [Aut omated message] The = Bili Direct) system which generated this result tra nsmitted reference range : <=0.3. The reference r leo was not used to int erpret this result as reji l/abnormal. [place] 006531-08-04 10:09:00 Test Item Value Reference Range Interpretation Comments Bili Total (test code = Bili Total) 0.6 0.2-1.3 [place] 006531-08-04 10:09:00 Test Item Value Reference Range Interpretation Comments Bili Indirect (test 0.4 See_Comment [Automa rohit message] The code = Bili Indirect) system which generated this result tra nsmitted reference range : <=1.0. The reference r leo was not used to int erpret this result as normal/abnormal . [place] 006531-08-04 10:09:00 Test Item Value Reference Range Interpretation Comments Total Protein (test code = Total 5.6 6.4-8.4 Protein) [place] 006531-08-04 10:09:00 Test Item Value Reference Range Interpretation Comments AST (test code = AST) 33 See_Comment [Auto mated message] The system which ge nerated this result transmit rohit reference range : <=37. The reference range was not used to interpr et this result as reji l/abnormal. [place] 006531-08-04 10:09:00 Test Item Value Reference Range Interpretation Comments Globulin (test code = Globulin) 2.8 2.7-4.2 [facility] [id number] 10:09:00 Test Item Value Reference Range Interpretation Comments A/G Ratio (test code = A/G Ratio) 1.0 1 0.7-1.6 [facility] [id number] 10:09:00 Test Item Value Reference Range Interpretation Comments Amylase Lvl (test code = Amylase Lvl) 19 25-115 [facility] [id number] 10:09:00 Test Item Value Reference Range Interpretation Comments Lipase Lvl (test code = Lipase Lvl) no gt 73-393 [facility] CenterMvsqmxuWSIMRFDURI6503-61-57 10:09:00 Test Item Value Reference Range Interpretation Comments PTT (test code = PTT) 41.4 s 22.9-35.8 [facility] CenterJnkyxffEYMPHDXOES8242-32-66 10:09:00 Test Item Value Reference Range Interpretation Comments PT (test code = PT) 15.4 s 12.0-14.7 [facility] CenterDmjnagtFRCIQFZPTM7632-14-10 10:09:00 Test Item Value Reference Range Interpretation Comments INR (test code = INR) 1.24 1 0.85-1.17 [facility] CenterIzsslesFNNDYNQUWW7952-52-28 10:09:00 Test Item Value Reference Range Interpretation Comments Fibrinogen Lvl (test code = Fibrinogen 312 230-510 Lvl) [facility] CenterNxbpfcdHBBGGDVZWM4214-94-79 10:09:00 Test Item Value Reference Range Interpretation Comments Thrombin Time (test code = Thrombin 16.6 s 15.0-21.2 Time) [facility] CenterXrdgbqwKAMHOAPXIN5295-41-43 10:09:00 Test Item Value Reference Range Interpretation Comments D-Dimer (test code = D-Dimer) 4.91 [facility] CenterFsjzjenZORZOVDCHM9064-63-07 10:09:00 Test Item Value Reference Range Interpretation Comments Basophils # (test code 0.1 See_Comment [Aut omated message] The = Basophils #) system which generated this result tra nsmitted reference range : <=0.2. The reference r leo was not used to int erpret this result as normal/abnormal . [facility] RHMUXBQHW9929-90-39 10:09:00 Test Item Value Reference Range Interpretation Comments Hgb A1C (test code = Hgb A1C) 5.6 [facility] [id number] 09:07:00 Test Item Value Reference Range Interpretation Comments Amylase Lvl (test code = Amylase Lvl) 4 25-115 [facility] CenterVfvccfnIDFPSMIFJG1568-22-41 09:07:00 Test Item Value Reference Range Interpretation Comments Thrombin Time (test code = Thrombin 18.0 s 15.0-21.2 Time) [facility]anoRcrwwrpMVVDDXMEGI1831-13-73 09:07:00 Test Item Value Reference Range Interpretation Comments PT (test code = PT) 24.6 s 12.0-14.7 [place] 679791-08-04 09:07:00 Test Item Value Reference Range Interpretation Comments INR (test code = INR) 2.31 1 0.85-1.17 [place] 679791-08-04 09:07:00 Test Item Value Reference Range Interpretation Comments PTT (test code = PTT) 57.5 s 22.9-35.8 [place] 679791-08-04 09:07:00 Test Item Value Reference Range Interpretation Comments Fibrinogen Lvl (test code = Fibrinogen 125 230-510 Lvl) [facility]anoCdpvuxlGKIBOSENOZ8393-60-26 09:07:00 Test Item Value Reference Range Interpretation Comments D-Dimer (test code = D-Dimer) 2.28 [facility]2021-08-04 09:07:00 Test Item Value Reference Range Interpretation Comments Amylase Lvl (test code = Amylase Lvl) 4 25-115 [facility]anoCqodsmsZDRMHIMFDF7281-17-26 09:07:00 Test Item Value Reference Range Interpretation Comments Thrombin Time (test code = Thrombin 18.0 s 15.0-21.2 Time) [facility]anoUybqtwiXIFVZTRWYT7630-04-39 09:07:00 Test Item Value Reference Range Interpretation Comments PT (test code = PT) 24.6 s 12.0-14.7 [place] 679791-08-04 09:07:00 Test Item Value Reference Range Interpretation Comments INR (test code = INR) 2.31 1 0.85-1.17 [place] 679791-08-04 09:07:00 Test Item Value Reference Range Interpretation Comments PTT (test code = PTT) 57.5 s 22.9-35.8 [facility]anoAbeuxuaZUECOBWQVQ8542-78-85 09:07:00 Test Item Value Reference Range Interpretation Comments Fibrinogen Lvl (test code = Fibrinogen 125 230-510 Lvl) [place] 679791-08-04 09:07:00 Test Item Value Reference Range Interpretation Comments D-Dimer (test code = D-Dimer) 2.28 [facility]2021-08-04 09:07:00 Test Item Value Reference Range Interpretation Comments Amylase Lvl (test code = Amylase Lvl) 4 25-115 [facility]anoWifwpkaLUGDKEFGIP1518-17-98 09:07:00 Test Item Value Reference Range Interpretation Comments Thrombin Time (test code = Thrombin 18.0 s 15.0-21.2 Time) [facility]anoDqrymogXXWXQAYNIU9456-03-26 09:07:00 Test Item Value Reference Range Interpretation Comments PT (test code = PT) 24.6 s 12.0-14.7 [facility]anoYdzchkaMOPORFOBWQ0749-39-70 09:07:00 Test Item Value Reference Range Interpretation Comments INR (test code = INR) 2.31 1 0.85-1.17 [facility]anoEruksxiDLRVUWNLPP0677-16-82 09:07:00 Test Item Value Reference Range Interpretation Comments PTT (test code = PTT) 57.5 s 22.9-35.8 [place] 679791-08-04 09:07:00 Test Item Value Reference Range Interpretation Comments Fibrinogen Lvl (test code = Fibrinogen 125 230-510 Lvl) [facility]anoAbnxkhlVBHQHHSXKO0549-74-01 09:07:00 Test Item Value Reference Range Interpretation Comments D-Dimer (test code = D-Dimer) 2.28 [facility]2021-08-04 09:07:00 Test Item Value Reference Range Interpretation Comments Amylase Lvl (test code = Amylase Lvl) 4 25-115 [facility]anoXmnmfwhBFTPQMVNNC0259-15-57 09:07:00 Test Item Value Reference Range Interpretation Comments Thrombin Time (test code = Thrombin 18.0 s 15.0-21.2 Time) [facility]anoGwttheoWQNSNWFEAG3463-20-31 09:07:00 Test Item Value Reference Range Interpretation Comments PT (test code = PT) 24.6 s 12.0-14.7 [facility]anoFeapcumLPLAJTBQND6561-26-78 09:07:00 Test Item Value Reference Range Interpretation Comments INR (test code = INR) 2.31 1 0.85-1.17 [facility]anoBbsqrbyOHKPFKPXCF4489-73-54 09:07:00 Test Item Value Reference Range Interpretation Comments PTT (test code = PTT) 57.5 s 22.9-35.8 [place] 679791-08-04 09:07:00 Test Item Value Reference Range Interpretation Comments Fibrinogen Lvl (test code = Fibrinogen 125 230-510 Lvl) [facility]anoCzrxvskQBYZOSPJBS1123-59-15 09:07:00 Test Item Value Reference Range Interpretation Comments D-Dimer (test code = D-Dimer) 2.28 [facility] [id number] 09:07:00 Test Item Value Reference Range Interpretation Comments Amylase Lvl (test code = Amylase Lvl) 4 25-115 [facility]anoSidvawmOTWQPEKDKQ7070-62-31 09:07:00 Test Item Value Reference Range Interpretation Comments Thrombin Time (test code = Thrombin 18.0 s 15.0-21.2 Time) [facility]anoInvzyxhXNUDOKXEOO1894-29-36 09:07:00 Test Item Value Reference Range Interpretation Comments PT (test code = PT) 24.6 s 12.0-14.7 [facility]anoLthcyzjJZRLRWROBE8210-73-80 09:07:00 Test Item Value Reference Range Interpretation Comments INR (test code = INR) 2.31 1 0.85-1.17 [facility]anoDxzxqeyQEAGIRDLMW5163-10-40 09:07:00 Test Item Value Reference Range Interpretation Comments PTT (test code = PTT) 57.5 s 22.9-35.8 [facility]anoXbigrmxAIIAFQASNK7388-74-30 09:07:00 Test Item Value Reference Range Interpretation Comments Fibrinogen Lvl (test code = Fibrinogen 125 230-510 Lvl) [facility]anoHlxcjzlHBQPBBSRDU7953-18-15 09:07:00 Test Item Value Reference Range Interpretation Comments D-Dimer (test code = D-Dimer) 2.28 [facility] [id number] 04:52:00 Test Item Value Reference Range Interpretation Comments RBC product (test code Product available = RBC product) (01/21/21 11:52 PM) [facility] [id number] 04:52:00 Test Item Value Reference Range Interpretation Comments RBC product (test code Product available = RBC product) (01/21/21 11:52 PM) [facility] [id number] 04:52:00 Test Item Value Reference Range Interpretation Comments RBC product (test code Product available = RBC product) (01/21/21 11:52 PM) [facility] [id number] 04:52:00 Test Item Value Reference Range Interpretation Comments RBC product (test code Product available = RBC product) (01/21/21 11:52 PM) [facility] [id number] 04:52:00 Test Item Value Reference Range Interpretation Comments RBC product (test code Product available = RBC product) (01/21/21 11:52 PM) [facility] [id number] 00:38:00 Test Item Value Reference Range Interpretation Comments Troponin-I (test code no gt See_Comment [Auto mated message] The = Troponin-I) system which g enerated this result transmit rohit reference range : <=0.40. The reference r leo was not used to interpr et this result as reji l/abnormal. [facility] YPGCXZK2318-01-70 00:38:00 Test Item Value Reference Range Interpretation Comments Troponin-I (test code no gt See_Comment [Auto mated message] The = Troponin-I) system which g enerated this result transmit rohit reference range : <=0.40. The reference r leo was not used to interpr et this result as reji l/abnormal. [facility]icsDG[facility] ECOPJBH4741-20-29 00:38:00 Test Item Value Reference Range Interpretation Comments Troponin-I (test code no gt See_Comment [Auto mated message] The = Troponin-I) system which g enerated this result transmit rohit reference range : <=0.40. The reference r leo was not used to interpr et this result as reji l/abnormal. [facility] [id number] 00:38:00 Test Item Value Reference Range Interpretation Comments Troponin-I (test code no gt See_Comment [Auto mated message] The = Troponin-I) system which g enerated this result transmit rohit reference range : <=0.40. The reference r leo was not used to interpr et this result as reji l/abnormal. [facility] VSSQMPF5580-06-54 00:38:00 Test Item Value Reference Range Interpretation Comments Troponin-I (test code no gt See_Comment [Auto mated message] The = Troponin-I) system which g enerated this result transmit rohit reference range : <=0.40. The reference r leo was not used to interpr et this result as reji l/abnormal. [facility] [employer]annCARDIAC [id number] 17:47:00 Test Item Value Reference Range Interpretation Comments BNP (test code = BNP) 2323 [facility] ClinicsannCARDIAC [id number] 17:47:00 Test Item Value Reference Range Interpretation Comments Troponin-I (test code 0.02 See_Comment [Auto mated message] The = Troponin-I) system which g enerated this result transmit rohit reference range : <=0.40. The reference r leo was not used to interpr et this result as reji l/abnormal. [facility] OilopjwNMHYKEGKRJ3464-44-96 17:47:00 Test Item Value Reference Range Interpretation Comments Hep Bs Ag (test code Negative *NA*(01/21/21 = Hep Bs Ag) 12:47 PM) [facility])BRAINCARFocal Point PharmaceuticalsAC [id number] 17:47:00 Test Item Value Reference Range Interpretation Comments BNP (test code = BNP) [address] [facility] ClinicsannCARFocal Point PharmaceuticalsAC [id number] 17:47:00 Test Item Value Reference Range Interpretation Comments Troponin-I (test code 0.02 See_Comment [Auto mated message] The = Troponin-I) system which g enerated this result transmit rohit reference range : <=0.40. The reference r leo was not used to interpr et this result as reji l/abnormal. [facility] ClinicsXnmpzkeYLUKPPQNTD2586-48-49 17:47:00 Test Item Value Reference Range Interpretation Comments Hep Bs Ag (test code Negative *NA*(01/21/21 = Hep Bs Ag) 12:47 PM) [facility] ClinicsChibweAC [id number] 17:47:00 Test Item Value Reference Range Interpretation Comments BNP (test code = BNP) [address] [facility] ClinicsannCARDIAC [id number] 17:47:00 Test Item Value Reference Range Interpretation Comments Troponin-I (test code 0.02 See_Comment [Auto mated message] The = Troponin-I) system which g enerated this result transmit rohit reference range : <=0.40. The reference r leo was not used to interpr et this result as reji l/abnormal. [facility] ClinicsPfbytfvCHWBLMEGLK7533-50-07 17:47:00 Test Item Value Reference Range Interpretation Comments Hep Bs Ag (test code Negative *NA*(01/21/21 = Hep Bs Ag) 12:47 PM) [facility] AsteriskannCARDIAC [id number] 17:47:00 Test Item Value Reference Range Interpretation Comments BNP (test code = BNP) 2324 [facility] HermannCARDIAC [id number] 17:47:00 Test Item Value Reference Range Interpretation Comments Troponin-I (test code 0.02 See_Comment [Auto mated message] The = Troponin-I) system which g enerated this result transmit rohit reference range : <=0.40. The reference r leo was not used to interpr et this result as reji l/abnormal. [facility] RajplwoSLCNAPTXJO0701-37-93 17:47:00 Test Item Value Reference Range Interpretation Comments Hep Bs Ag (test code Negative *NA*(01/21/21 = Hep Bs Ag) 12:47 PM) [facility] [employer] [id number] 17:47:00 Test Item Value Reference Range Interpretation Comments BNP (test code = BNP) 2324 [facility] AsteriskannCARDIAC [id number] 17:47:00 Test Item Value Reference Range Interpretation Comments Troponin-I (test code 0.02 See_Comment [Auto mated message] The = Troponin-I) system which g enerated this result transmit rohit reference range : <=0.40. The reference r leo was not used to interpr et this result as reji l/abnormal. [facility] UruqceoODVTBIJUQO9581-04-91 17:47:00 Test Item Value Reference Range Interpretation Comments Hep Bs Ag (test code Negative *NA*(01/21/21 = Hep Bs Ag) 12:47 PM) [facility] [employer] [id number] 17:43:00 Test Item Value Reference Range Interpretation Comments B/C Ratio (test code = B/C Ratio) 5 1 6-25 [facility] [employer] [id number] 17:43:00 Test Item Value Reference Range Interpretation Comments ALT (test code = ALT) 66 See_Comment [Auto mated message] The system which ge nerated this result transmit rohit reference range : <=65. The reference range was not used to interpr et this result as reji l/abnormal. [facility] [employer]2021-08-03 17:43:00 Test Item Value Reference Range Interpretation Comments Albumin Lvl (test code = Albumin Lvl) 3.0 3.5-5.0 [facility] ClinicsT[facility] Ass[facility] [id number] 17:43:00 Test Item Value Reference Range Interpretation Comments Alk Phos (test code = Alk Phos) 40 39-136 [place] 006531-08-03 17:43:00 Test Item Value Reference Range Interpretation Comments Bili Total (test code = Bili Total) 0.5 0.2-1.3 [place] 7[address]47-08-03 17:43:00 Test Item Value Reference Range Interpretation Comments Total Protein (test code = Total 5.7 6.4-8.4 Protein) [facility]ics[facility] Ass[facility] [id number] 17:43:00 Test Item Value Reference Range Interpretation Comments AST (test code = AST) 52 See_Comment [Auto mated message] The system which ge nerated this result transmit rohit reference range : <=37. The reference range was not used to interpr et this result as reji l/abnormal. [facility]icsT[facility] [id number] 17:43:00 Test Item Value Reference Range Interpretation Comments Globulin (test code = Globulin) 2.7 2.7-4.2 [facility]icsT[facility] Ass[facility] [id number] 17:43:00 Test Item Value Reference Range Interpretation Comments A/G Ratio (test code = A/G Ratio) 1.1 1 0.7-1.6 [facility] [id number] 17:43:00 Test Item Value Reference Range Interpretation Comments Lactic Acid Lvl (test code = Lactic 1.1 0.5-2.2 Acid Lvl) [facility]ics[facility] Ass[facility] [id number] 17:43:00 Test Item Value Reference Range Interpretation Comments B/C Ratio (test code = B/C Ratio) 5 1 6-25 [facility]icsT[facility] [id number] 17:43:00 Test Item Value Reference Range Interpretation Comments ALT (test code = ALT) 66 See_Comment [Auto mated message] The system which ge nerated this result transmit rohit reference range : <=65. The reference range was not used to interpr et this result as reji l/abnormal. [facility]icsT[facility] [id number] 17:43:00 Test Item Value Reference Range Interpretation Comments Albumin Lvl (test code = Albumin Lvl) 3.0 3.5-5.0 [facility] [id number] 17:43:00 Test Item Value Reference Range Interpretation Comments Alk Phos (test code = Alk Phos) 40 39-136 [place] [id number] 17:43:00 Test Item Value Reference Range Interpretation Comments Bili Total (test code = Bili Total) 0.5 0.2-1.3 [place] [id number] 17:43:00 Test Item Value Reference Range Interpretation Comments Total Protein (test code = Total 5.7 6.4-8.4 Protein) [facility] [id number] 17:43:00 Test Item Value Reference Range Interpretation Comments AST (test code = AST) 52 See_Comment [Auto mated message] The system which ge nerated this result transmit rohit reference range : <=37. The reference range was not used to interpr et this result as reji l/abnormal. [facility] [id number] 17:43:00 Test Item Value Reference Range Interpretation Comments Globulin (test code = Globulin) 2.7 2.7-4.2 [facility] [id number] 17:43:00 Test Item Value Reference Range Interpretation Comments A/G Ratio (test code = A/G Ratio) 1.1 1 0.7-1.6 [facility] [id number] 17:43:00 Test Item Value Reference Range Interpretation Comments Lactic Acid Lvl (test code = Lactic 1.1 0.5-2.2 Acid Lvl) [facility] [id number] 17:43:00 Test Item Value Reference Range Interpretation Comments B/C Ratio (test code = B/C Ratio) 5 1 6-25 [facility] [id number] 17:43:00 Test Item Value Reference Range Interpretation Comments ALT (test code = ALT) 66 See_Comment [Auto mated message] The system which ge nerated this result transmit rohit reference range : <=65. The reference range was not used to interpr et this result as reji l/abnormal. [facility] [id number] 17:43:00 Test Item Value Reference Range Interpretation Comments Albumin Lvl (test code = Albumin Lvl) 3.0 3.5-5.0 [facility] [employer] [id number] 17:43:00 Test Item Value Reference Range Interpretation Comments Alk Phos (test code = Alk Phos) 40 39-136 [facility] [id number] 17:43:00 Test Item Value Reference Range Interpretation Comments Bili Total (test code = Bili Total) 0.5 0.2-1.3 [facility] [employer] [id number] 17:43:00 Test Item Value Reference Range Interpretation Comments Total Protein (test code = Total 5.7 6.4-8.4 Protein) [facility] [employer] [id number] 17:43:00 Test Item Value Reference Range Interpretation Comments AST (test code = AST) 52 See_Comment [Auto mated message] The system which ge nerated this result transmit rohit reference range : <=37. The reference range was not used to interpr et this result as reji l/abnormal. [facility] [employer] [id number] 17:43:00 Test Item Value Reference Range Interpretation Comments Globulin (test code = Globulin) 2.7 2.7-4.2 [facility] [employer] [id number] 17:43:00 Test Item Value Reference Range Interpretation Comments A/G Ratio (test code = A/G Ratio) 1.1 1 0.7-1.6 [facility] [employer] [id number] 17:43:00 Test Item Value Reference Range Interpretation Comments Lactic Acid Lvl (test code = Lactic 1.1 0.5-2.2 Acid Lvl) [facility] [employer] [id number] 17:43:00 Test Item Value Reference Range Interpretation Comments B/C Ratio (test code = B/C Ratio) 5 1 6-25 [facility] [employer] [id number] 17:43:00 Test Item Value Reference Range Interpretation Comments ALT (test code = ALT) 66 See_Comment [Auto mated message] The system which ge nerated this result transmit rohit reference range : <=65. The reference range was not used to interpr et this result as reji l/abnormal. [facility] [employer] [id number] 17:43:00 Test Item Value Reference Range Interpretation Comments Albumin Lvl (test code = Albumin Lvl) 3.0 3.5-5.0 [facility] [id number] 17:43:00 Test Item Value Reference Range Interpretation Comments Alk Phos (test code = Alk Phos) 40 39-136 [facility] [id number] 17:43:00 Test Item Value Reference Range Interpretation Comments Bili Total (test code = Bili Total) 0.5 0.2-1.3 [facility] [id number] 17:43:00 Test Item Value Reference Range Interpretation Comments Total Protein (test code = Total 5.7 6.4-8.4 Protein) [facility] [id number] 17:43:00 Test Item Value Reference Range Interpretation Comments AST (test code = AST) 52 See_Comment [Auto mated message] The system which ge nerated this result transmit rohit reference range : <=37. The reference range was not used to interpr et this result as reji l/abnormal. [facility] [id number] 17:43:00 Test Item Value Reference Range Interpretation Comments Globulin (test code = Globulin) 2.7 2.7-4.2 [facility] [id number] 17:43:00 Test Item Value Reference Range Interpretation Comments A/G Ratio (test code = A/G Ratio) 1.1 1 0.7-1.6 [facility] [id number] 17:43:00 Test Item Value Reference Range Interpretation Comments Lactic Acid Lvl (test code = Lactic 1.1 0.5-2.2 Acid Lvl) [facility] [id number] 17:43:00 Test Item Value Reference Range Interpretation Comments B/C Ratio (test code = B/C Ratio) 5 1 6-25 [facility] [id number] 17:43:00 Test Item Value Reference Range Interpretation Comments ALT (test code = ALT) 66 See_Comment [Auto mated message] The system which ge nerated this result transmit orhit reference range : <=65. The reference range was not used to interpr et this result as reji l/abnormal. [facility] [employer] [id number] 17:43:00 Test Item Value Reference Range Interpretation Comments Albumin Lvl (test code = Albumin Lvl) 3.0 3.5-5.0 [facility] [employer] [id number] 17:43:00 Test Item Value Reference Range Interpretation Comments Alk Phos (test code = Alk Phos) 40 39-136 [facility] [employer] [id number] 17:43:00 Test Item Value Reference Range Interpretation Comments Bili Total (test code = Bili Total) 0.5 0.2-1.3 [facility] [employer] [id number] 17:43:00 Test Item Value Reference Range Interpretation Comments Total Protein (test code = Total 5.7 6.4-8.4 Protein) [facility] [employer] [id number] 17:43:00 Test Item Value Reference Range Interpretation Comments AST (test code = AST) 52 See_Comment [Auto mated message] The system which ge nerated this result transmit rohit reference range : <=37. The reference range was not used to interpr et this result as reji l/abnormal. [employer] [id number] 17:43:00 Test Item Value Reference Range Interpretation Comments Globulin (test code = Globulin) 2.7 2.7-4.2 [facility] [employer] [id number] 17:43:00 Test Item Value Reference Range Interpretation Comments A/G Ratio (test code = A/G Ratio) 1.1 1 0.7-1.6 [facility] [employer]2021-08-03 17:43:00 Test Item Value Reference Range Interpretation Comments Lactic Acid Lvl (test code = Lactic 1.1 0.5-2.2 Acid Lvl) [employer] [id number] 16:20:00 Test Item Value Reference Range Interpretation Comments ABO/Rh (test code = ABO/Rh) B POS [facility] [employer] [id number] 16:20:00 Test Item Value Reference Range Interpretation Comments Antibody Scrn (test Negative (01/21/21 11:20 code = Antibody Scrn) AM) [facility] [id number] 16:20:00 Test Item Value Reference Range Interpretation Comments Anisocyte (test code = 1+ *ABN*(01/21/21 Anisocyte) 11:20 AM) [employer] [id number] 16:20:00 Test Item Value Reference Range Interpretation Comments ABO/Rh (test code = ABO/Rh) B POS [employer] [id number] 16:20:00 Test Item Value Reference Range Interpretation Comments Antibody Scrn (test Negative (01/21/21 11:20 code = Antibody Scrn) AM) [id number] 16:20:00 Test Item Value Reference Range Interpretation Comments Anisocyte (test code = 1+ *ABN*(01/21/21 Anisocyte) 11:20 AM) [facility] [id number] 16:20:00 Test Item Value Reference Range Interpretation Comments ABO/Rh (test code = ABO/Rh) B POS [facility] [employer] [id number] 16:20:00 Test Item Value Reference Range Interpretation Comments Antibody Scrn (test Negative (01/21/21 11:20 code = Antibody Scrn) AM) [id number] 16:20:00 Test Item Value Reference Range Interpretation Comments Anisocyte (test code = 1+ *ABN*(01/21/21 Anisocyte) 11:20 AM) [facility] [id number] 16:20:00 Test Item Value Reference Range Interpretation Comments ABO/Rh (test code = ABO/Rh) B POS [facility] [employer] [id number] 16:20:00 Test Item Value Reference Range Interpretation Comments Antibody Scrn (test Negative (01/21/21 11:20 code = Antibody Scrn) AM) [id number] 16:20:00 Test Item Value Reference Range Interpretation Comments Anisocyte (test code = 1+ *ABN*(01/21/21 Anisocyte) 11:20 AM) [facility] [employer] [id number] 16:20:00 Test Item Value Reference Range Interpretation Comments ABO/Rh (test code = ABO/Rh) B POS [facility] [employer] [id number] 16:20:00 Test Item Value Reference Range Interpretation Comments Antibody Scrn (test Negative (01/21/21 11:20 code = Antibody Scrn) AM) [id number] 16:20:00 Test Item Value Reference Range Interpretation Comments Anisocyte (test code = 1+ *ABN*(01/21/21 Anisocyte) 11:20 AM) [facility] [id number] 15:35:00 Test Item Value Reference Range Interpretation Comments Lactase Lvl (test code = Lactase Lvl) 2.0 [facility] [id number] 15:35:00 Test Item Value Reference Range Interpretation Comments Sucrase Lvl (test code = Sucrase Lvl) 38.6 [facility] [id number] 15:35:00 Test Item Value Reference Range Interpretation Comments Maltase Lvl (test code = Maltase Lvl) 177.2 [facility] [id number] 15:35:00 Test Item Value Reference Range Interpretation Comments Palatinase Lvl (test code = Palatinase 13.8 Lvl) [facility] [id number] 15:35:00 Test Item Value Reference Range Interpretation Comments Lactase Lvl (test code = Lactase Lvl) 2.0 [facility] [id number] 15:35:00 Test Item Value Reference Range Interpretation Comments Sucrase Lvl (test code = Sucrase Lvl) 38.6 [facility] [id number] 15:35:00 Test Item Value Reference Range Interpretation Comments Maltase Lvl (test code = Maltase Lvl) 177.2 [facility] [id number] 15:35:00 Test Item Value Reference Range Interpretation Comments Palatinase Lvl (test code = Palatinase 13.8 Lvl) [facility] [id number] 15:35:00 Test Item Value Reference Range Interpretation Comments Lactase Lvl (test code = Lactase Lvl) 2.0 [facility] [id number] 15:35:00 Test Item Value Reference Range Interpretation Comments Sucrase Lvl (test code = Sucrase Lvl) 38.6 [facility] [id number] 15:35:00 Test Item Value Reference Range Interpretation Comments Maltase Lvl (test code = Maltase Lvl) 177.2 [facility] [id number] 15:35:00 Test Item Value Reference Range Interpretation Comments Palatinase Lvl (test code = Palatinase 13.8 Lvl) [facility] [id number] 15:35:00 Test Item Value Reference Range Interpretation Comments Lactase Lvl (test code = Lactase Lvl) 2.0 [facility] [id number] 15:35:00 Test Item Value Reference Range Interpretation Comments Sucrase Lvl (test code = Sucrase Lvl) 38.6 [facility] [id number] 15:35:00 Test Item Value Reference Range Interpretation Comments Maltase Lvl (test code = Maltase Lvl) 177.2 [facility] [id number] 15:35:00 Test Item Value Reference Range Interpretation Comments Palatinase Lvl (test code = Palatinase 13.8 Lvl) [facility] [id number] 15:35:00 Test Item Value Reference Range Interpretation Comments Lactase Lvl (test code = Lactase Lvl) 2.0 [facility] [id number] 15:35:00 Test Item Value Reference Range Interpretation Comments Sucrase Lvl (test code = Sucrase Lvl) 38.6 [facility] [id number] 15:35:00 Test Item Value Reference Range Interpretation Comments Maltase Lvl (test code = Maltase Lvl) 177.2 [facility] [id number] 15:35:00 Test Item Value Reference Range Interpretation Comments Palatinase Lvl (test code = Palatinase 13.8 Lvl) [id number] 13:21:00 Test Item Value Reference Range Interpretation Comments Potassium WB (test code = Potassium WB) 5.1 3.5-5.1 [id number] 13:21:00 Test Item Value Reference Range Interpretation Comments S Preg (test code = S Negative 8*NA*(01/21/21 Preg) 8:21 AM) [id number] 13:21:00 Test Item Value Reference Range Interpretation Comments Potassium WB (test code = Potassium WB) 5.1 3.5-5.1 [place] [id number] 13:21:00 Test Item Value Reference Range Interpretation Comments S Preg (test code = S Negative 8*NA*(01/21/21 Preg) 8:21 AM) [facility] H[id number] 13:21:00 Test Item Value Reference Range Interpretation Comments Potassium WB (test code = Potassium WB) 5.1 3.5-5.1 [place] [id number] 13:21:00 Test Item Value Reference Range Interpretation Comments S Preg (test code = S Negative 8*NA*(01/21/21 Preg) 8:21 AM) [facility] H[id number] 13:21:00 Test Item Value Reference Range Interpretation Comments Potassium WB (test code = Potassium WB) 5.1 3.5-5.1 [place] [id number] 13:21:00 Test Item Value Reference Range Interpretation Comments S Preg (test code = S Negative 8*NA*(01/21/21 Preg) 8:21 AM) [facility] H[id number] 13:21:00 Test Item Value Reference Range Interpretation Comments Potassium WB (test code = Potassium WB) 5.1 3.5-5.1 [place] [id number] 13:21:00 Test Item Value Reference Range Interpretation Comments S Preg (test code = S Negative 8*NA*(01/21/21 Preg) 8:21 AM) [id number] 11:19:00 Test Item Value Reference Range Interpretation Comments Coronavirus (COVID-19) Not Detected (01/21/21 EMANUEL (test code = 6:19 AM) Coronavirus (COVID-19) EMANUEL) [facility] [id number] 11:19:00 Test Item Value Reference Range Interpretation Comments Coronavirus (COVID-19) Not Detected (01/21/21 EMANUEL (test code = 6:19 AM) Coronavirus (COVID-19) EMANUEL) [facility] [id number] 11:19:00 Test Item Value Reference Range Interpretation Comments Coronavirus (COVID-19) Not Detected (01/21/21 EMANUEL (test code = 6:19 AM) Coronavirus (COVID-19) EMANUEL) [facility] CenterPnlwyjiERGVGXINZO1503-29-12 11:19:00 Test Item Value Reference Range Interpretation Comments Coronavirus (COVID-19) Not Detected (01/21/21 EMANUEL (test code = 6:19 AM) Coronavirus (COVID-19) EMANUEL) [facility] [id number] 11:19:00 Test Item Value Reference Range Interpretation Comments Coronavirus (COVID-19) Not Detected (01/21/21 EMANUEL (test code = 6:19 AM) Coronavirus (COVID-19) EMANUEL) [facility] [id number] 16:39:05 Test Item Value Reference Range Interpretation Comments Glucose POC (test 183 mg/dL 70-115 H If you con drill presser your code = Glucose POC) patient critically ill, the [employer]-Accu Check Infrom II meter should not be used for Glucose determination. Draw a venous Glucose and send to the main Lab for analysis. Urine [id number] 11:32:13 Test Item Value Reference Range Interpretation [...] Escherichia coli C Urine Added by [id number]_INDPOC [id number] 07:52:10 Test Item Value Reference Range Interpretation Comments Glucose POC (test 160 mg/dL 70-115 H If you con drill presser your code = Glucose POC) patient critically ill, the Merlin-Accu Check Infrom II meter should not be used for Glucose determination. Draw a venous Glucose and send to the main Lab for analysis. POC [id number] 19:32:05 Test Item Value Reference Range Interpretation Comments Glucose POC (test 184 mg/dL 70-115 H If you con drill presser your code = Glucose POC) patient critically ill, the Merlin-Accu Check Infrom II meter should not be used for Glucose determination. Draw a venous Glucose and send to the main Lab for analysis. POC [id number] 17:16:35 Test Item Value Reference Range Interpretation Comments Glucose POC (test 281 mg/dL 70-115 H Notify RN or MDIf you code = Glucose POC) consider your patient critically ill, the [employer]-Accu Chec k Infrom II meter should not be used for Glucos e determination. Draw a venous Glucose and send to the main Lab for analysis. POC [id number] 12:00:38 Test Item Value Reference Range Interpretation Comments Glucose POC (test 138 mg/dL 70-115 H Notify RN or MDIf you code = Glucose POC) consider your patient critically ill, the [employer]u Chec k Infrom II meter should not be used for Glucos e determination. Draw a venous Glucose and send to the main Lab for analysis. POC [id number] 07:41:32 Test Item Value Reference Range Interpretation Comments Glucose POC (test 206 mg/dL 70-115 H Notify RN or MDIf you code = Glucose POC) consider your patient critically ill, the [employer]-Accu Chec k Infrom II meter should not be used for Glucos e determination. Draw a venous Glucose and send to the main Lab for analysis. Urinalysis [id number] 21:07:21 Test Item Value Reference Range Interpretation Comments UA WBC (test code = UA WBC) TNTC 0-5 A UA RBC (test code = UA RBC) 6-10 0-5 A UA Bacteria (test code = UA Bacteria) Profuse A UA Squam Epithelial (test code = UA 6-10 A Squam Epithelial) Urinalysis with Culture, if [id number] 20:35:14 Test Item Value Reference Range Interpretation [...] Micro Indicated Not Indicated A Ind?) POC [id number] 19:06:34 Test Item Value Reference Range Interpretation Comments Glucose POC (test 207 mg/dL 70-115 H If you con drill presser your code = Glucose POC) patient critically ill, the Merlin-Accu Check Infrom II meter should not be used for Glucose determination. Draw a venous Glucose and send to the main Lab for analysis. POC [id number] 17:12:03 Test Item Value Reference Range Interpretation Comments Glucose POC (test 173 mg/dL 70-115 H Notify RN or MDIf you code = Glucose POC) consider your patient critically ill, the [employer] k Infrom II meter should not be used for Glucos e determination. Draw a venous Glucose and send to the main Lab for analysis. POC [id number] 11:58:01 Test Item Value Reference Range Interpretation Comments Glucose POC (test 289 mg/dL 70-115 H Notify RN or MDIf you code = Glucose POC) consider your patient critically ill, the [employer] k Infrom II meter should not be used for Glucos e determination. Draw a venous Glucose and send to the main Lab for analysis. POC [id number] 08:19:37 Test Item Value Reference Range Interpretation Comments Glucose POC (test 201 mg/dL 70-115 H Notify RN or MDIf you code = Glucose POC) consider your patient critically ill, the [employer] Infrom II meter should not be used for Glucos e determination. Draw a venous Glucose and send to the main Lab for analysis. POC [id number] 20:37:35 Test Item Value Reference Range Interpretation Comments Glucose POC (test 272 mg/dL 70-115 H If you con drill presser your code = Glucose POC) patient critically ill, the [employer]-Accu Check Infrom II meter should not be used for Glucose determination. Draw a venous Glucose and send to the main Lab for analysis. POC [id number] 17:23:05 Test Item Value Reference Range Interpretation Comments Glucose POC (test 229 mg/dL 70-115 H If you con drill presser your code = Glucose POC) patient critically ill, the [employer]-Accu Check Infrom II meter should not be used for Glucose determination. Draw a venous Glucose and send to the main Lab for analysis. POC [id number] 12:01:01 Test Item Value Reference Range Interpretation Comments Glucose POC (test 155 mg/dL 70-115 H If you con drill presser your code = Glucose POC) patient critically ill, the [employer]-Accu Check Infrom II meter should not be used for Glucose determination. Draw a venous Glucose and send to the main Lab for analysis. POC [id number] 08:07:32 Test Item Value Reference Range Interpretation Comments Glucose POC (test 248 mg/dL 70-115 H If you con drill presser your code = Glucose POC) patient critically ill, the [employer]-Accu Check Infrom II meter should not be used for Glucose determination. Draw a venous Glucose and send to the main Lab for analysis. IG [id number] 06:50:39 Test Item Value Reference Range Interpretation Comments IG (test code = IG) 0.7 % 0.0-5.0 IG Abs (test code = IG Abs) 0 x10 N Complete Blood Count with [id number] 06:50:38 Test Item Value Reference Range Interpretation [...] code = IPF) 0 % N Automated [id number] 06:50:38 Test Item Value Reference Range Interpretation Comments Neutro Auto (test code = Neutro 50.3 % 36.0-70.0 Auto) Lymph Auto (test code = Lymph Auto) 38.6 % 12.0-44.0 Ness Auto (test code = Ness Auto) 7.3 % 0.0-11.0 Eos, Auto (test code = Eos, Auto) 2.4 % 0.0-7.0 Basophil Auto (test code = Basophil 0.7 % 0.0-2.0 Auto) Neutro Absolute (test code = Neutro 3.0 x10 1.6-7.4 Absolute) Lymph Absolute (test code = Lymph 2.28 x10 .50-4.60 Absolute) Ness Absolute (test code = Ness .43 x10 .00-1.20 Absolute) Eos Absolute (test code = Eos 0.14 x10 0.00-0.74 Absolute) Baso Absolute (test code = Baso 0.04 x10 0.00-0.21 Absolute) Basic Metabolic [id number] 05:38:20 Test Item Value Reference Range Interpretation [...] = Lipemia) 0 mg/dL 8-11 Basic Metabolic [id number] 05:38:20 Test Item Value Reference Range Interpretation [...] = 0 mg/dL 8-11 Lipemia) Basic Metabolic [id number] 05:38:20 Test Item Value Reference Range Interpretation [...] ag e have not been validated by [facility] MDRD study and should be [...] ag e have not been validated by [facility] MDRD study and should be [...] code = 0 mg/dL 8-11 Lipemia) POC [id number] 20:28:33 Test Item Value Reference Range Interpretation Comments Glucose POC (test 169 mg/dL 70-115 H If you con drill presser your code = Glucose POC) patient critically ill, the [employer]-Accu Check Infrom II meter should not be used for Glucose determination. Draw a venous Glucose and send to the main Lab for analysis. POC [id number] 16:39:30 Test Item Value Reference Range Interpretation Comments Glucose POC (test 103 mg/dL 70-115 If you con drill presser your code = Glucose POC) patient critically ill, the Merlin-Accu Check Infrom II meter should not be used for Glucose determination. Draw a venous Glucose and send to the main Lab for analysis. RPR [id number] 12:08:56 Test Item Value Reference Range Interpretation Comments RPR Qual (test code = RPR Qual) Non-Reactive Non-Reactive Reactive Control (test code = Reactive Reactive Control) Weak Reactive Control (test Weak Reactive code = Weak Reactive Control) Non-Reactive Control (test code Non-Reactive = Non-Reactive Control) Lot # (test code = Lot #) [id number] N Expiration Dt (test code = 03-20-2021 N Expiration Dt) POC [id number] 11:52:31 Test Item Value Reference Range Interpretation Comments Glucose POC (test 250 mg/dL 70-115 H If you con drill presser your code = Glucose POC) patient critically ill, the Merlin-Accu Check Infrom II meter should not be used for Glucose determination. Draw a venous Glucose and send to the main Lab for analysis. POC [id number] 07:55:29 Test Item Value Reference Range Interpretation Comments Glucose POC (test 205 mg/dL 70-115 H If you con drill presser your code = Glucose POC) patient critically ill, the Merlin-Accu Check Infrom II meter should not be used for Glucose determination. Draw a venous Glucose and send to the main Lab for analysis. Lipid [id number] 05:46:04 Test Item Value Reference Range Interpretation [...] LDL/HDL Ratio=L DL Calc/HDL Chol Thyroid Stimulating [id number] 05:46:04 Test Item Value Reference Range Interpretation Comments TSH (test code = TSH) 3.274 mcIU/mL 0.550-4.780 Hemoglobin [id number] 05:41:08 Test Item Value Reference Range Interpretation Comments Hemoglobin A1c (test code 7.6 % 4.0-5.8 H Di abetic >=6.5 = Hemoglobin A1c) %Prediabet es 5.7-6.4 %Normal <5.7 % Hepatitis B Surface [id number] 21:19:36 Test Item Value Reference Range Interpretation Comments Hep Bs Ag (test code = Hep Bs Non-Reactive Non-Reactive Ag) Novel Coronavirus SARS-CoV-2, [id number] 11:16:16 Test Item Value Reference Range Interpretation [...] Emergency Use Authorization." Novel Coronavirus (COVID-19), EMANUEL [id number] 11:11:24TNPTest not sent and performed at [facility].Rapid was perfomed in Microbiology.Wrong covid test was ord ered.Urine DOA [id number] 00:17:49 Test Item Value Reference Range Interpretation [...] Propoxyphene Confirmation wi thin 7 days. Alcohol [id number] 00:17:29 Test Item Value Reference Range Interpretation Comments Ethanol Level 9.0 mg/dL N The pharmacolo gical (test code = response to blo od alcohol Ethanol Level) levels may va ry from individual to i ndividual. The fatal omkar ntration has been report ed to be >400 mg/dl. Comprehensive Metabolic [id number] 00:17:28 Test Item Value Reference Range Interpretation [...] = Lipemia) 0 g/dL 1-2 Comprehensive Metabolic [id number] 00:17:28 Test Item Value Reference Range Interpretation [...] = 0 g/dL 1-2 Lipemia) Comprehensive Metabolic [id number] 00:17:28 Test Item Value Reference Range Interpretation [...] g/dL 1-2 Lipemia) Complete Blood Count with [id number] 23:26:28 Test Item Value Reference Range Interpretation [...] code = IPF) 0 % N Automated [id number] 23:26:28 Test Item Value Reference Range Interpretation Comments Neutro Auto (test code = Neutro 67.1 % 36.0-70.0 Auto) Lymph Auto (test code = Lymph Auto) 23.3 % 12.0-44.0 Ness Auto (test code = Ness Auto) 5.8 % 0.0-11.0 Eos, Auto (test code = Eos, Auto) 2.3 % 0.0-7.0 Basophil Auto (test code = Basophil 0.8 % 0.0-2.0 Auto) Neutro Absolute (test code = Neutro 6.0 x10 1.6-7.4 Absolute) Lymph Absolute (test code = Lymph 2.10 x10 .50-4.60 Absolute) Ness Absolute (test code = Ness .52 x10 .00-1.20 Absolute) Eos Absolute (test code = Eos 0.21 x10 0.00-0.74 Absolute) Baso Absolute (test code = Baso 0.07 x10 0.00-0.21 Absolute) IG [id number] 23:26:28 Test Item Value Reference Range Interpretation Comments IG (test code = IG) 0.7 % 0.0-5.0 IG Abs (test code = IG Abs) 0 x10 N HERPES VIRUS ANTIBODY, [id number] 21:46:00 Test Item Value Reference Range Interpretation Comments HERPES VIRUS IGM (BEAKER) Negative SE E ATTACHMENT (test code = 1808) BLOOD [id number] 06:00:00 Test Item Value Reference Range Interpretation Comments CULTURE (BEAKER) (test No growth in 5 days code = 1095) BLOOD [id number] 06:00:00 Test Item Value Reference Range Interpretation Comments CULTURE (BEAKER) (test No growth in 5 days code = 1095) POCT-GLUCOSE [id number] 12:11:00 Test Item Value Reference Range Interpretation Comments POC-GLUCOSE METER 154 mg/dL 70-110 H TESTED AT [place] [address] (BEAKER) (test code = [place] 1538) [address] POCT-GLUCOSE [id number] 07:53:00 Test Item Value Reference Range Interpretation Comments POC-GLUCOSE METER 87 mg/dL 70-[address] [facility] 6720 (BEAKER) (test code = [place] [facility] [address] 1538) POCT-GLUCOSE [id number] 06:49:00 Test Item Value Reference Range Interpretation Comments POC-GLUCOSE METER 79 mg/dL 70-110 TESTED AT [place] [id number] (BEAKER) (test code = [facility] Eduin [facility] [address] 1538) COMPREHENSIVE METABOLIC [id number] 06:15:00 Test Item Value Reference Range Interpretation [...] S NOT APPLICABLE FOR DIALYSIS PATIEN TS. [id number] 06:11:00 Test Item Value Reference Range Interpretation Comments MAGNESIUM (BEAKER) (test code = 2.1 mg/dL 1.6-2.6 627) HEPATIC FUNCTION [id number] 06:11:00 Test Item Value Reference Range Interpretation [...] code = 513 U/L 6-55 H 347) [id number] 05:30:00 Test Item Value Reference Range Interpretation Comments FIBRINOGEN LEVEL (BEAKER) (test 368 mg/dl 225-434 code = 658) [id number] 05:30:00 Test Item Value Reference Range Interpretation Comments PARTIAL THROMBOPLASTIN TIME 42.2 seconds 22.5-36.0 H (BEAKER) (test code = 760) PROTHROMBIN [id number] 05:29:00 Test Item Value Reference Range Interpretation Comments PROTIME (BEAKER) (test code = 14.8 seconds 11.7-14.7 H 759) INR (BEAKER) (test code = 370) 1.2 <=5.9 RECOMMENDED COUMADIN/WARFARIN INR THERAPY RANGESSTANDARD DOSE: 2.0 - 3.0 Includes: PROPHYLAXIS for venous thrombosis, systemic embolization; TREATMENT for venous thrombosis and/or pulmonary embolus.HIGH RISK: Target INR is 2.5-3.5 for patients with mechanical heart valves.POCT-GLUCOSE [id number] 21:09:00 Test Item Value Reference Range Interpretation Comments POC-GLUCOSE METER 178 mg/dL 70-110 H TESTED AT [place] [address] (BEAKER) (test code = [place] [facility] 1538) [address] POCT-GLUCOSE [id number] 17:18:00 Test Item Value Reference Range Interpretation Comments POC-GLUCOSE METER 178 mg/dL 70-110 H TESTED AT [place] [address] ([facility]) (test code = JULIATN Eduin [facility] 1538) [address] POCT-GLUCOSE [id number] 13:48:00 Test Item Value Reference Range Interpretation Comments POC-GLUCOSE METER 150 mg/dL 70-110 H TESTED AT [place] [address] ([facility]) (test code = [facility] 1538) [address] FACTOR 5 ACTIVITY (BLEEDING RISK)2017-01-06 10:04:00 Test Item Value Reference Range Interpretation Comments FACTOR V ACTIVITY ([facility]) (test code 90.0 % 60.0-150.0 = 665) Effective 10/24/2013: Reference Range Change-Adult onlyNew: 60.0-150.0 Previous: 50.0-150.0CYTOMEGALOVIRUS ANTIBODY, [id number] 09:42:00 Test Item Value Reference Range Interpretation Comments CYTOMEGALOVIRUS IGM ANTIBODY Negative ([facility]) (test code = 816) HERPES VIRUS ANTIBODY, [id number] 08:59:00 Test Item Value Reference Range Interpretation Comments 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[facility]) (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 G 1807) CYTOMEGALOVIRUS ANTIBODY, [id number] 08:59:00 Test Item Value Reference Range Interpretation Comments CYTOMEGALOVIRUS IGG ANTIBODY Positive ([facility]) (test code = 790) EBV-VCA ANTIBODY, [id number] 08:59:00 Test Item Value Reference Range Interpretation Comments JASE-WALL VCA IGG ([facility]) (test Positive code = 983) EBV-VCA ANTIBODY, [id number] 08:59:00 Test Item Value Reference Range Interpretation Comments JASE-WALL VCA IGM ([facility]) (test Negative code = 984) POCT-GLUCOSE [id number] 07:59:00 Test Item Value Reference Range Interpretation Comments POC-GLUCOSE METER 81 mg/dL 70-110 TESTED AT [place] [address] ([facility]) (test code = [place] [facility] [address] 1538) COMPREHENSIVE METABOLIC [id number] 06:23:00 Test Item Value Reference Range Interpretation [...] S NOT APPLICABLE FOR DIALYSIS PATIEN TS. [id number] 06:17:00 Test Item Value Reference Range Interpretation Comments MAGNESIUM (BEAKER) (test code = 1.8 mg/dL 1.6-2.6 627) HEPATIC FUNCTION [id number] 06:17:00 Test Item Value Reference Range Interpretation Comments TOTAL PROTEIN (BEAKER) (test code = 5.3 gm/dL 6.0-8.3 L 770) ALBUMIN (BEAKER) (test code = 1145) 2.4 g/dL 3.5-5.0 L BILIRUBIN TOTAL (BEAKER) (test code 1.5 mg/dL 0.2-1.2 H = 377) BILIRUBIN DIRECT (AKER) (test 1.0 mg/dL 0.1-0.5 H code = 706) ALKALINE PHOSPHATASE (BEAKER) (test 85 U/L 40-150 code = 346) AST (SGOT) (BEAKER) (test code = 364 U/L 5-34 H 353) ALT (SGPT) ([facility]) (test code = 779 U/L 6-55 H 347) [id number] 06:00:00 Test Item Value Reference Range Interpretation Comments FIBRINOGEN LEVEL ([facility]) (test 390 mg/dl 225-434 code = 658) [id number] 06:00:00 Test Item Value Reference Range Interpretation Comments PARTIAL THROMBOPLASTIN TIME 40.2 seconds 22.5-36.0 H (AKER) (test code = 760) PROTHROMBIN [id number] 05:59:00 Test Item Value Reference Range Interpretation Comments PROTIME ([facility]) (test code = 14.6 seconds 11.7-14.7 759) INR ([facility]) (test code = 370) 1.2 <=5.9 RECOMMENDED COUMADIN/WARFARIN INR THERAPY RANGESSTANDARD DOSE: 2.0 - 3.0 Includes: PROPHYLAXIS for venous thrombosis, systemic embolization; TREATMENT for venous thrombosis and/or pulmonary embolus.HIGH RISK: Target INR is 2.5-3.5 for patients with mechanical heart valves.POCT-GLUCOSE [id number] 21:46:00 Test Item Value Reference Range Interpretation Comments POC-GLUCOSE METER 153 mg/dL 70-110 H TESTED AT [place] [address] ([facility]) (test code = [facility] Eduin [facility] 1538) [address] POCT-GLUCOSE [id number] 18:47:00 Test Item Value Reference Range Interpretation Comments POC-GLUCOSE METER 181 mg/dL 70-110 H TESTED AT [place] [address] ([facility]) (test code = [facility] Eduin [facility] 1538) [address] POCT-GLUCOSE [id number] 12:40:00 Test Item Value Reference Range Interpretation Comments POC-GLUCOSE METER 178 mg/dL 70-110 H TESTED AT [place] [address] ([facility]) (test code = [facility] 1538) [address] POCT-GLUCOSE [id number] 07:51:00 Test Item Value Reference Range Interpretation Comments POC-GLUCOSE METER 166 mg/dL 70-[address] [facility] 6720 (BEAKER) (test code = [place] [facility] 1538) [address] COMPREHENSIVE METABOLIC [id number] 03:26:00 Test Item Value Reference Range Interpretation [...] S NOT APPLICABLE FOR DIALYSIS PATIEN TS. [id number] 03:22:00 Test Item Value Reference Range Interpretation Comments MAGNESIUM (BEAKER) (test code = 1.4 mg/dL 1.6-2.6 L 627) HEPATIC FUNCTION [id number] 03:22:00 Test Item Value Reference Range Interpretation [...] code = 1009 U/L 6-55 H 347) [id number] 03:12:00 Test Item Value Reference Range Interpretation Comments AMMONIA (BEAKER) (test code = 348) 29 mol/L 18-72 [id number] 03:10:00 Test Item Value Reference Range Interpretation Comments PARTIAL THROMBOPLASTIN TIME 42.3 seconds 22.5-36.0 H (BEAKER) (test code = 760) PROTHROMBIN [id number] 03:09:00 Test Item Value Reference Range Interpretation Comments PROTIME (BEAKER) (test code = 16.4 seconds 11.7-14.7 H 759) INR (BEAKER) (test code = 370) 1.3 <=5.9 RECOMMENDED COUMADIN/WARFARIN INR THERAPY RANGESSTANDARD DOSE: 2.0 - 3.0 Includes: PROPHYLAXIS for venous thrombosis, systemic embolization; TREATMENT for venous thrombosis and/or pulmonary embolus.HIGH RISK: Target INR is 2.5-3.5 for patients with mechanical heart valves.[id number] 03:09:00 Test Item Value Reference Range Interpretation Comments FIBRINOGEN LEVEL (BEAKER) (test 413 mg/dl 225-434 code = 658) CBC W/PLT COUNT & AUTO [id number] 03:09:00 Test Item Value Reference Range Interpretation [...] L 0.00-0.20 (test code = 417) 0.00POCT-GLUCOSE [id number] 22:33:00 Test Item Value Reference Range Interpretation Comments POC-GLUCOSE METER 230 mg/dL 70-[address] [facility] 6720 (BEAKER) (test code = [place] 1538) [address] POCT-GLUCOSE [id number] 18:17:00 Test Item Value Reference Range Interpretation Comments POC-GLUCOSE METER 222 mg/dL 70-[address] [facility] 6720 (BEAKER) (test code = [place] 1538) [address] COMPREHENSIVE METABOLIC [id number] 16:59:00 Test Item Value Reference Range Interpretation [...] PATIEN TS. PERIPHERAL BLOOD SMEAR - PATHOLOGIST [id number] 15:30:00 Test Item Value Reference Range Interpretation Comments RBC MORPHOLOGY Polychromasia (BEAKER) (test code = 2846) RBC MORPHOLOGY Anisocytosis (MADIE) (test code = 60820) PERIPHERAL SMR REVIEW Cell counts confirmed ([facility]) (test code = 6330) [id number] Josefina Lara M.D. ([facility]) (test code = (electronic signature) 5391) PROTHROMBIN [id number] 15:12:00 Test Item Value Reference Range Interpretation Comments PROTIME (MADIE) (test code = 16.6 seconds 11.7-14.7 H 759) INR ([facility]) (test code = 370) 1.4 <=5.9 RECOMMENDED COUMADIN/WARFARIN INR THERAPY RANGESSTANDARD DOSE: 2.0 - 3.0 Includes: PROPHYLAXIS for venous thrombosis, systemic embolization; TREATMENT for venous thrombosis and/or pulmonary embolus.HIGH RISK: Target INR is 2.5-3.5 for patients with mechanical heart valves.ANTI-NUCLEAR ANTIBODY (IVETTE)2017-01-04 14:32:00 Test Item Value Reference Range Interpretation Comments ANTI-NUCLEAR ANTIBODY (IVETTE) ([facility]) Negative Negative (test code = 418) POCT-GLUCOSE [id number] 12:47:00 Test Item Value Reference Range Interpretation Comments POC-GLUCOSE METER 212 mg/dL 70-[address] [facility] 6720 ([facility]) (test code = [place] Denny [facility] 1538) [address] [id number] 12:34:00 Test Item Value Reference Range Interpretation Comments RPR SCREEN ([facility]) (test code = Nonreactive Nonreactive 420) CLOSTRIDIUM DIFFICILE TOXIN [id number] 10:12:00 Test Item Value Reference Range Interpretation Comments CLOSTRIDIUM DIFFICILE TOXIN, PCR Not Detected Not Detected ([facility]) (test code = 1525) This qualitative [...] Reference Range Change-Adult onlyNew: 60.0-150.0 Previous: 50.0-150.0POCT-GLUCOSE [id number] 06:40:00 Test Item Value Reference Range Interpretation Comments POC-GLUCOSE METER 167 mg/dL 70-[address] [facility] 6720 (BEAKER) (test code = [place] 1538) [address] COMPREHENSIVE METABOLIC [id number] 04:08:00 Test Item Value Reference Range Interpretation [...] ESTIM ATED GFR. Specimen slightly ictericHEPATIC FUNCTION [id number] 04:06:00 Test Item Value Reference Range Interpretation [...] 1091 U/L 6-55 H 347) Specimen slightly [id number] 04:01:00 Test Item Value Reference Range Interpretation Comments FIBRINOGEN LEVEL (BEAKER) (test 379 mg/dl 225-434 code = 658) [id number] 04:01:00 Test Item Value Reference Range Interpretation Comments PARTIAL THROMBOPLASTIN TIME 40.7 seconds 22.5-36.0 H (BEAKER) (test code = 760) PROTHROMBIN [id number] 04:00:00 Test Item Value Reference Range Interpretation [...] mechanical heart valves.CBC W/PLT COUNT & AUTO [id number] 03:56:00 Test Item Value Reference Range Interpretation [...] L 0.00-0.20 (test code = 417) 0.00POCT-GLUCOSE [id number] 00:19:00 Test Item Value Reference Range Interpretation Comments POC-GLUCOSE METER 159 mg/dL 70-[address] [facility] 6720 (BEAKER) (test code = [place] 1538) [address] POCT-GLUCOSE [id number] 18:56:00 Test Item Value Reference Range Interpretation Comments POC-GLUCOSE METER 192 mg/dL 70-[address] [facility] 6720 (BEAKER) (test code = [place] 1538) [address] COMPREHENSIVE METABOLIC [id number] 16:55:00 Test Item Value Reference Range Interpretation [...] CALCULATE ESTIM ATED GFR. Specimen slightly ictericPROTHROMBIN [id number] 16:37:00 Test Item Value Reference Range Interpretation Comments PROTIME (BEAKER) (test code = 20.9 seconds 11.7-14.7 H 759) INR (BEAKER) (test code = 370) 1.8 <=5.9 RECOMMENDED COUMADIN/WARFARIN INR THERAPY RANGESSTANDARD DOSE: 2.0 - 3.0 Includes: PROPHYLAXIS for venous thrombosis, systemic embolization; TREATMENT for venous thrombosis and/or pulmonary embolus.HIGH RISK: Target INR is 2.5-3.5 for patients with mechanical heart valves.HEPATITIS B SURFACE [id number] 14:05:00 Test Item Value Reference Range Interpretation Comments HEPATITIS B SURFACE ANTIBODY < mIU/mL <8.0 (BEAKER) (test code = 647) HEPATITIS B CORE ANTIBODY, [id number] 13:43:00 Test Item Value Reference Range Interpretation Comments HEPATITIS B CORE TOTAL ANTIBODY Nonreactive Nonreactive (BEAKER) (test code = 497) BLOOD GAS, [id number] 13:35:00 Test Item Value Reference Range Interpretation [...] code = 1819) 28.0 % URINALYSIS W/ [id number] 13:16:00 Test Item Value Reference Range Interpretation [...] 1584) SOURCE(BEAKER) (test code = Urine, [place] 1869) VITAMIN D, 03-[id number] 13:14:00 Test Item Value Reference Range Interpretation Comments VITAMIN D 25-OH (BEAKER) (test code = < ng/mL 13.0-47.8 L 2764) ALPHA FETOPROTEIN (AFP), TUMOR [id number] 13:06:00 Test Item Value Reference Range Interpretation Comments ALPHA-FETOPROTEIN (BEAKER) (test code < ng/mL <10.0 = 1094) Effective 05/08/2014: Reference Range ChangeNew: <10.0 Previous: 0.0-8.0 HEMOGLOBIN [id number] 13:05:00 Test Item Value Reference Range Interpretation Comments HEMOGLOBIN A1C (BEAKER) (test code = 7.6 % 4.3-6.1 H 368) CARCINOEMBRYONIC ANTIGEN (CEA)2017-01-03 12:59:00 Test Item Value Reference Range Interpretation Comments CARCINOEMBRYONIC ANTIGEN (BEAKER) 2.0 ng/mL 0.0-5.0 (test code = 685) [id number] 12:59:00 Test Item Value Reference Range Interpretation Comments FERRITIN (BEAKER) (test code = 1841 ng/mL 5-275 H 361) Effective 05/08/2014: Reference Range ChangeNew: Male 5-275 Previous: Male 22- 322 Female 5-275 Female [id number] 12:58:00 Test Item Value Reference Range Interpretation Comments T4 TOTAL (BEAKER) (test code = 895) 4.5 ug/dL 4.9-11.7 L [id number] 12:58:00 Test Item Value Reference Range Interpretation Comments THYROID STIMULATING HORMONE 1.79 uIU/mL 0.35-4.94 (BEAKER) (test code = 772) [id number] 12:58:00 Test Item Value Reference Range Interpretation Comments T3 TOTAL (BEAKER) (test code = 656) 34 ng/dL 48-159 L Effective 05/08/2014: Reference Range ChangeNew: 48-159 Previous: 60-181CALCIUM, [id number] 12:47:00 Test Item Value Reference Range Interpretation Comments CALCIUM IONIZED (BEAKER) (test 1.05 mmol/L 1.12-1.27 L code = 698) PH, BLOOD (BEAKER) (test code = 7.43 1810) [id number] 12:42:00 Test Item Value Reference Range Interpretation [...] % 20-55 (test code = 2590) URIC [id number] 12:40:00 Test Item Value Reference Range Interpretation Comments URIC ACID (BEAKER) (test code = 16.0 mg/dL 2.6-7.2 H 773) Specimen slightly ictericLIPID [id number] 12:40:00 Test Item Value Reference Range Interpretation [...] 160-189 Very High >=190 Specimen slightly ictericBILIRUBIN, [id number] 12:40:00 Test Item Value Reference Range Interpretation Comments BILIRUBIN DIRECT (BEAKER) (test 2.4 mg/dL 0.1-0.5 H code = 706) GAMMA GLUTAMYL TRANSFERASE (GGT)2017-01-03 12:40:00 Test Item Value Reference Range Interpretation Comments GAMMA GLUTAMYL TRANSFERASE (BEAKER) 53 U/L 9-64 (test code = 364) Specimen slightly [id number] 12:39:00 Test Item Value Reference Range Interpretation Comments ETHANOL (BEAKER) (test code = 400) < mg/dL <=10 SCREEN, [id number] 12:36:00 Test Item Value Reference Range Interpretation Comments TEST URINE (BEAKER) (test Negative code = 583) POCT-GLUCOSE [id number] 12:34:00 Test Item Value Reference Range Interpretation Comments POC-GLUCOSE METER 189 mg/dL 70-[address] [facility] 6720 (BEAKER) (test code = [place] 8988) [address] HIV-1 ANTIGEN WITH HIV-1/2 [id number] 11:58:00 Test Item Value Reference Range Interpretation Comments HIV-1 ANTIGEN WITH HIV 1\\T\\2 Nonreactive Nonreactive ANTIBODY (2) (BEAKER) (test code = 2586) TROPONIN [id number] 09:44:00 Test Item Value Reference Range Interpretation [...] 0.0-4.9CK-MB Reference Range:<6.7 Normal6.7-10.0 Borderline>10.0 Abnormal ACETAMINOPHEN [id number] 08:31:00 Test Item Value Reference Range Interpretation Comments ACETAMINOPHEN LEVEL (BEAKER) (test < ug/mL 10.0-30.0 L code = 344) TROPONIN [id number] 05:53:00 Test Item Value Reference Range Interpretation [...] acute neurological disease, and persistent tachyarrhythmia.BASIC METABOLIC [id number] 05:53:00 Test Item Value Reference Range Interpretation [...] TO CALCULA TE ESTIMATED GFR. Specimen slightly [id number] 05:52:00 Test Item Value Reference Range Interpretation Comments PHOSPHORUS (BEAKER) (test code = 5.7 mg/dL 2.3-4.7 H 604) HEPATIC FUNCTION [id number] 05:52:00 Test Item Value Reference Range Interpretation [...] Specimen slightly ictericCREATINE KINASE (CK), TOTAL AND [id number] 05:52:00 Test Item Value Reference Range Interpretation Comments CREATINE KINASE TOTAL (BEAKER) 341 U/L 29-200 H (test code = 380) CREATINE KINASE-MB (BEAKER) (test 5.4 ng/mL 0.0-6.6 code = 750) CREATINE KINASE-MB INDEX (BEAKER) 1.6 % (test code = 395) Effective 05/08/2014: CK-MB Reference Range ChangeNew: 0.0-6.6 Previous: 0.0-4.9CK-MB Reference Range:<6.7 Normal6.7-10.0 Borderline>10.0 Abnormal CBC W/PLT COUNT & AUTO [id number] 05:48:00 Test Item Value Reference Range Interpretation [...] K/ L 0.00-0.20 (test code = 417) [id number] 05:09:00 Test Item Value Reference Range Interpretation Comments FIBRINOGEN LEVEL (BEAKER) (test 427 mg/dl 225-434 code = 658) [id number] 05:09:00 Test Item Value Reference Range Interpretation Comments PARTIAL THROMBOPLASTIN TIME 36.2 seconds 22.5-36.0 H (BEAKER) (test code = 760) PROTHROMBIN [id number] 05:08:00 Test Item Value Reference Range Interpretation Comments PROTIME (BEAKER) (test code = 22.8 seconds 11.7-14.7 H 759) INR (BEAKER) (test code = 370) 2.0 <=5.9 RECOMMENDED COUMADIN/WARFARIN INR THERAPY RANGESSTANDARD DOSE: 2.0 - 3.0 Includes: PROPHYLAXIS for venous thrombosis, systemic embolization; TREATMENT for venous thrombosis and/or pulmonary embolus.HIGH RISK: Target INR is 2.5-3.5 for patients with mechanical heart valves.HEPATITIS PANEL, [id number] 03:40:00 Test Item Value Reference Range Interpretation Comments HEPATITIS A IGM ANTIBODY (BEAKER) Nonreactive Nonreactive (test code = 498) HEPATITIS B CORE IGM ANTIBODY Nonreactive Nonreactive (BEAKER) (test code = 645) HEPATITIS C ANTIBODY (BEAKER) Nonreactive Nonreactive (test code = 367) HEPATITIS B SURFACE ANTIGEN (2) Nonreactive Nonreactive (BEAKER) (test code = 2585) CREATININE, RANDOM [id number] 03:18:00 Test Item Value Reference Range Interpretation Comments CREATININE URINE (BEAKER) (test 118.7 mg/dL code = 375) Reference Range: No NormalsSODIUM, RANDOM [id number] 03:18:00 Test Item Value Reference Range Interpretation Comments SODIUM URINE (BEAKER) (test code = 60 meq/L 243) Reference Range: No NormalsUREA NITROGEN, RANDOM [id number] 03:18:00 Test Item Value Reference Range Interpretation Comments UREA NITROGEN URINE (BEAKER) (test 303 mg/dL code = 538) Reference Range: No YxnwphaUNKEFAG0880-31-27 03:07:00 Test Item Value Reference Range Interpretation Comments AMMONIA (BEAKER) (test code = 348) 48 mol/L 18-72 [id number] 02:57:00 Test Item Value Reference Range Interpretation [...] within 95-100% range. URINALYSIS W/ REFLEX URINE [id number] 02:53:00 Test Item Value Reference Range Interpretation [...] = 514) SOURCE(BEAKER) (test code = 2795) [id number] 02:49:00 Test Item Value Reference Range Interpretation Comments PARTIAL THROMBOPLASTIN TIME 39.4 seconds 22.5-36.0 H (BEAKER) (test code = 760) PROTHROMBIN TIME/[id number] 02:48:00 Test Item Value Reference Range Interpretation Comments PROTIME (BEAKER) (test code = 22.0 seconds 11.7-14.7 H 759) INR (BEAKER) (test code = 370) 1.9 <=5.9 RECOMMENDED COUMADIN/WARFARIN INR THERAPY RANGESSTANDARD DOSE: 2.0 - 3.0 Includes: PROPHYLAXIS for venous thrombosis, systemic embolization; TREATMENT for venous thrombosis and/or pulmonary embolus.HIGH RISK: Target INR is 2.5-3.5 for patients with mechanical heart valves.[id number] 02:48:00 Test Item Value Reference Range Interpretation Comments FIBRINOGEN LEVEL (BEAKER) (test 421 mg/dl 225-434 code = 658) BLOOD GAS, [id number] 02:43:00 Test Item Value Reference Range Interpretation [...] 21.0 % CBC W/PLT COUNT & AUTO [id number] 02:43:00 Test Item Value Reference Range Interpretation [...] code = 417) 0.00LACTIC ACID, VENOUS, WHOLE [id number] 02:35:00 Test Item Value Reference Range Interpretation Comments LACTATE BLOOD VENOUS (2) (BEAKER) 0.8 mmol/L 0.5-2.2 (test code = 2872) Effective 10/23/2015: Units/Reference Range ChangeNew: 0.5-2.2 mmol/L Previous: 5- 20 mg/dLSpecimen slightly cnoftqkRLONPULPEPFV7488-37-72 11:32:00 Test Item Value Reference Range Interpretation Comments AGAP (test code = AGAP) 14.6 10.0-20.0 [facility]IarxloxYWPXUSMULZAV7785-39-65 11:32:00 Test Item Value Reference Range Interpretation Comments eGFR (test code = eGFR) 33 [facility] HospitalOvyfcehNEKXFISYREIJ1214-18-63 11:32:00 Test Item Value Reference Range Interpretation Comments Calcium Lvl (test code = Calcium Lvl) 8.3 8.5-10.5 [facility] HospitalDlhmkmdPHICJUCBKNVE5564-32-93 11:32:00 Test Item Value Reference Range Interpretation Comments Glucose Lvl (test code = Glucose Lvl) 81 70-99 [facility] HospitalNutlgerAKPORFZITPIE7050-45-17 11:32:00 Test Item Value Reference Range Interpretation Comments Creatinine Lvl (test code = Creatinine 1.95 0.50-1.40 Lvl) [facility] HospitalGarqkxjXLGTXDZUOIKY2148-10-98 11:32:00 Test Item Value Reference Range Interpretation Comments BUN (test code = BUN) 55 7-22 [facility] HospitalBdmmeenVARLXHMKXACD7663-51-57 11:32:00 Test Item Value Reference Range Interpretation Comments CO2 (test code = CO2) 19 24-32 [facility] HospitalXwffgbqHTHBRWVMIQTV9086-60-10 11:32:00 Test Item Value Reference Range Interpretation Comments Chloride Lvl (test code = Chloride Lvl) 110 95-109 [facility] HospitalEuxofkwXMFMYLENDUTU0437-94-37 11:32:00 Test Item Value Reference Range Interpretation Comments Sodium Lvl (test code = Sodium Lvl) 139 135-145 [facility] HospitalDbvvpknLFSIYSMNRWLX5250-43-71 11:32:00 Test Item Value Reference Range Interpretation Comments Potassium Lvl (test code = Potassium 4.6 3.5-5.1 Lvl) [facility]GxakplcEVDDZWWJRV4860-38-73 11:32:00 Test Item Value Reference Range Interpretation Comments Lymphocytes (test code = Lymphocytes) 30.4 20.0-40.0 [facility]anoSdzgaxdPKIQWSFVCH0512-84-67 11:32:00 Test Item Value Reference Range Interpretation Comments Eosinophils (test code = 4.5 See_Comment [A utomated message] The Eosinophils) system which ge nerated this result tra nsmitted reference range : <=4.0. The reference r leo was not used to int erpret this result as normal/abnormal . [facility]anoZhpyrqdWAILRUZCPL3987-52-78 11:32:00 Test Item Value Reference Range Interpretation Comments Monocytes (test code = Monocytes) 13.7 2.0-12.0 [facility]anoBoemmypXXEXPARMXR6132-78-20 11:32:00 Test Item Value Reference Range Interpretation Comments Segs-Bands # (test code = Segs-Bands #) 2.6 1.5-8.1 [facility]anoMjmloscYQXLRCTSFD3053-69-73 11:32:00 Test Item Value Reference Range Interpretation Comments Basophils (test code = 0.7 See_Comment [Aut omated message] The Basophils) system which ge nerated this result tra nsmitted reference range : <=1.0. The reference r leo was not used to int erpret this result as normal/abnormal . [facility]anoZmwargtWENMFVQXKL6828-80-88 11:32:00 Test Item Value Reference Range Interpretation Comments Monocytes # (test code 0.7 See_Comment [Aut omated message] The = Monocytes #) system which generated this result tra nsmitted reference range : <=0.8. The reference r leo was not used to int erpret this result as normal/abnormal . [facility]anoIaiirpaNBIRNSQVGL9732-46-95 11:32:00 Test Item Value Reference Range Interpretation Comments Lymphocytes # (test code = Lymphocytes 1.6 1.0-5.5 #) [facility]anoBcyoollOBQIRBKXUV2850-73-66 11:32:00 Test Item Value Reference Range Interpretation Comments Eosinophils # (test code 0.2 See_Comment [A utomated message] The = Eosinophils #) system [employer] generated this result tra nsmitted reference range : <=0.5. The reference r leo was not used to int erpret this result as normal/abnormal . [facility]anoGvnocadWCZJTHELGB0548-80-60 11:32:00 Test Item Value Reference Range Interpretation Comments Segs (test code = Segs) 50.7 45.0-75.0 [facility]anoRecmtwlPYSTMZNTEL0905-53-94 11:32:00 Test Item Value Reference Range Interpretation [...] iron deficiency anemia, and renal disease. CPT: 98159 [facility]anoPfovspiSMQTEPCMLM1151-73-71 11:32:00 Test Item Value Reference Range Interpretation Comments Hct (test code = Hct) 28.1 36.0-48.0 [facility]anoQhztykfGHNONWKFSS8476-77-63 11:32:00 Test Item Value Reference Range Interpretation Comments RBC (test code = RBC) 3.39 4.20-5.40 [facility]anoOyleivaLFJOOXUFXJ6736-53-95 11:32:00 Test Item Value Reference Range Interpretation Comments Hgb (test code = Hgb) 8.9 12.0-16.0 [facility]anoDtjhofoKQMTGFGDMJ6374-57-71 11:32:00 Test Item Value Reference Range Interpretation Comments WBC (test code = WBC) 5.1 3.7-10.4 [facility]anoRhofjnwWSVBJVZSDI2740-02-08 11:32:00 Test Item Value Reference Range Interpretation Comments MPV (test code = MPV) 11.3 7.4-10.4 [facility]anoPdotxyfDMMSQFKRVS0466-52-19 11:32:00 Test Item Value Reference Range Interpretation Comments Platelet (test code = Platelet) 118 133-450 [facility]anoTlkmfbwFJZCRLPWSH7251-42-03 11:32:00 Test Item Value Reference Range Interpretation Comments MCHC (test code = MCHC) 31.8 32.0-36.0 [facility]anoIpnzpkgGGMGHVTJLO9642-21-78 11:32:00 Test Item Value Reference Range Interpretation Comments RDW (test code = RDW) 18.0 11.5-14.5 [facility]anoTwelajuGAGHKPHAKI0289-24-35 11:32:00 Test Item Value Reference Range Interpretation Comments MCV (test code = MCV) 83.0 80.0-98.0 [facility]anoXeqihuwQIHJJERIKP1272-47-11 11:32:00 Test Item Value Reference Range Interpretation Comments MCH (test code = MCH) 26.4 pg 27.0-31.0 [facility] CenterRcotwduXZMQFNJHRU8368-57-77 11:32:00 Test Item Value Reference Range Interpretation Comments C3 Complement (test code = C3 137 88-201 Complement) [facility] CenterYpvzphjACJMRFDYOZ5395-05-69 11:32:00 Test Item Value Reference Range Interpretation Comments HIV. (test code = Negative *NA*(07/30/16 HIV.) 5:32 AM) [facility] HospitalLpwuzarEIOFJFYLVKWQ3961-92-93 11:32:00 Test Item Value Reference Range Interpretation Comments AGAP (test code = AGAP) 14.6 10.0-20.0 [facility] HospitalHsllpyvNUQJHPUNLKHA2997-10-31 11:32:00 Test Item Value Reference Range Interpretation Comments eGFR (test code = eGFR) 33 [facility] HospitalCtevkwwICJXCUTJFNTB3091-15-19 11:32:00 Test Item Value Reference Range Interpretation Comments Calcium Lvl (test code = Calcium Lvl) 8.3 8.5-10.5 [facility] HospitalCznlxwhUXJGYAODOXYS8245-96-59 11:32:00 Test Item Value Reference Range Interpretation Comments Glucose Lvl (test code = Glucose Lvl) 81 70-99 [facility] HospitalTsvkxwqHRXHRCZYPLBA2296-44-23 11:32:00 Test Item Value Reference Range Interpretation Comments Creatinine Lvl (test code = Creatinine 1.95 0.50-1.40 Lvl) [facility] HospitalVqiunzfMEWEVJFEUQYR0956-67-87 11:32:00 Test Item Value Reference Range Interpretation Comments BUN (test code = BUN) 55 7-22 [facility] HospitalGwvxguaDTRJRMBJYMBQ5822-38-88 11:32:00 Test Item Value Reference Range Interpretation Comments CO2 (test code = CO2) 19 24-32 [facility] HospitalRdibiclGEPSQVEUCCKD5890-63-05 11:32:00 Test Item Value Reference Range Interpretation Comments Chloride Lvl (test code = Chloride Lvl) 110 95-109 [facility] HospitalKokpdanFXHILHRGTNTR0914-32-40 11:32:00 Test Item Value Reference Range Interpretation Comments Sodium Lvl (test code = Sodium Lvl) 139 135-145 [facility] HospitalHnlgekmILXBIUHANLZC7718-55-63 11:32:00 Test Item Value Reference Range Interpretation Comments Potassium Lvl (test code = Potassium 4.6 3.5-5.1 Lvl) [facility]anoSmfynuxJYUUJBFZFD9437-91-68 11:32:00 Test Item Value Reference Range Interpretation Comments Lymphocytes (test code = Lymphocytes) 30.4 20.0-40.0 [facility]anoLydxxnbEQRGBKJHHG6786-13-70 11:32:00 Test Item Value Reference Range Interpretation Comments Eosinophils (test code = 4.5 See_Comment [A utomated message] The Eosinophils) system which ge nerated this result tra nsmitted reference range : <=4.0. The reference r leo was not used to int erpret this result as normal/abnormal . [facility]anoJlxnopcSQFQEKITRR8690-03-62 11:32:00 Test Item Value Reference Range Interpretation Comments Monocytes (test code = Monocytes) 13.7 2.0-12.0 [facility]anoEltmqamLYPCAIBMJT8789-01-87 11:32:00 Test Item Value Reference Range Interpretation Comments Segs-Bands # (test code = Segs-Bands #) 2.6 1.5-8.1 [facility]anoFrzntzqNUNFEEGTCR2857-15-28 11:32:00 Test Item Value Reference Range Interpretation Comments Basophils (test code = 0.7 See_Comment [Aut omated message] The Basophils) system which ge nerated this result tra nsmitted reference range : <=1.0. The reference r leo was not used to int erpret this result as normal/abnormal . [facility]anoOursvniOFROMKIYOS1402-50-23 11:32:00 Test Item Value Reference Range Interpretation Comments Monocytes # (test code 0.7 See_Comment [Aut omated message] The = Monocytes #) system which generated this result tra nsmitted reference range : <=0.8. The reference r leo was not used to int erpret this result as normal/abnormal . [facility]anoNxfidboVGCQXSGPNP7979-82-51 11:32:00 Test Item Value Reference Range Interpretation Comments Lymphocytes # (test code = Lymphocytes 1.6 1.0-5.5 #) [facility]anoHkjakunVDNJSGXHRS5810-07-03 11:32:00 Test Item Value Reference Range Interpretation Comments Eosinophils # (test code 0.2 See_Comment [A utomated message] The = Eosinophils #) system [employer] h generated this result tra nsmitted reference range : <=0.5. The reference r leo was not used to int erpret this result as normal/abnormal . [facility]anoQxmpgveRRQCXBZCJX8440-40-33 11:32:00 Test Item Value Reference Range Interpretation Comments Segs (test code = Segs) 50.7 45.0-75.0 [facility]anoSzgapnpYVPGFIEJGZ7070-08-36 11:32:00 Test Item Value Reference Range Interpretation [...] iron deficiency anemia, and renal disease. CPT: 56432 [facility]anoVdblebpEZWRVVALEM4254-75-03 11:32:00 Test Item Value Reference Range Interpretation Comments Hct (test code = Hct) 28.1 36.0-48.0 [facility]anoPhvjwbwDUBYPJHMHM1156-85-00 11:32:00 Test Item Value Reference Range Interpretation Comments RBC (test code = RBC) 3.39 4.20-5.40 [facility]anoMbeeqcgIEPBUUSJWO0249-81-25 11:32:00 Test Item Value Reference Range Interpretation Comments Hgb (test code = Hgb) 8.9 12.0-16.0 [facility]anoAgyzwicCPAUNGQCOM1555-46-72 11:32:00 Test Item Value Reference Range Interpretation Comments WBC (test code = WBC) 5.1 3.7-10.4 [facility]anoPbxqtzyMIUTNPHKXP9244-08-23 11:32:00 Test Item Value Reference Range Interpretation Comments MPV (test code = MPV) 11.3 7.4-10.4 [facility]anoYeeeratXAIFVQLNQV4264-37-97 11:32:00 Test Item Value Reference Range Interpretation Comments Platelet (test code = Platelet) 118 133-450 [facility]anoFiijjahABLYBHSGFN0569-60-05 11:32:00 Test Item Value Reference Range Interpretation Comments MCHC (test code = MCHC) 31.8 32.0-36.0 [facility]anoBikznpqVMQXBVDLMV4050-04-56 11:32:00 Test Item Value Reference Range Interpretation Comments RDW (test code = RDW) 18.0 11.5-14.5 [facility]anoHbbmrfjAJDEOREBPQ4425-03-25 11:32:00 Test Item Value Reference Range Interpretation Comments MCV (test code = MCV) 83.0 80.0-98.0 [facility]anoVgenltnSILJHCUFVM8031-55-22 11:32:00 Test Item Value Reference Range Interpretation Comments MCH (test code = MCH) 26.4 pg 27.0-31.0 [facility] CenterKcblgzkVJQUBJWVVA4086-44-41 11:32:00 Test Item Value Reference Range Interpretation Comments C3 Complement (test code = C3 137 88-201 Complement) [facility] CenterYaxfjvjNRLRJQHMRP9067-57-74 11:32:00 Test Item Value Reference Range Interpretation Comments HIV. (test code = Negative *NA*(07/30/16 HIV.) 5:32 AM) [facility] HospitalTsvkxycDYZKTJMITVOL7628-70-22 11:32:00 Test Item Value Reference Range Interpretation Comments AGAP (test code = AGAP) 14.6 10.0-20.0 [facility] HospitalFwnzcsdNBVNYKTVMUTK4394-19-59 11:32:00 Test Item Value Reference Range Interpretation Comments eGFR (test code = eGFR) 33 [facility] HospitalLhibyfnHCHQQESRMDEK8688-66-53 11:32:00 Test Item Value Reference Range Interpretation Comments Calcium Lvl (test code = Calcium Lvl) 8.3 8.5-10.5 [facility] HospitalBeewotcAEXAARRLPWKU0108-54-30 11:32:00 Test Item Value Reference Range Interpretation Comments Glucose Lvl (test code = Glucose Lvl) 81 70-99 [facility] HospitalGaxwzmqXXIINNYOOEMZ8515-93-10 11:32:00 Test Item Value Reference Range Interpretation Comments Creatinine Lvl (test code = Creatinine 1.95 0.50-1.40 Lvl) [facility] HospitalArwdqboLRAIDBXRNJRL1717-57-72 11:32:00 Test Item Value Reference Range Interpretation Comments BUN (test code = BUN) 55 7-22 [facility] HospitalUhgngweYOVNMFHKTRSK5822-78-82 11:32:00 Test Item Value Reference Range Interpretation Comments CO2 (test code = CO2) 19 24-32 [facility] HospitalRdimhivDIYBDVDHQHLU5452-82-15 11:32:00 Test Item Value Reference Range Interpretation Comments Chloride Lvl (test code = Chloride Lvl) 110 95-109 [facility] HospitalPpyxssdVRXBSEANYLFP9861-84-57 11:32:00 Test Item Value Reference Range Interpretation Comments Sodium Lvl (test code = Sodium Lvl) 139 135-145 [facility] HospitalBvexhwhAHEKVDNLWFMJ7235-74-20 11:32:00 Test Item Value Reference Range Interpretation Comments Potassium Lvl (test code = Potassium 4.6 3.5-5.1 Lvl) [facility]anoGqwokuvERIFBEJSOV7097-26-76 11:32:00 Test Item Value Reference Range Interpretation Comments Lymphocytes (test code = Lymphocytes) 30.4 20.0-40.0 [facility]anoDwrftpqNCTMSNIKJI5993-45-20 11:32:00 Test Item Value Reference Range Interpretation Comments Eosinophils (test code = 4.5 See_Comment [A utomated message] The Eosinophils) system which ge nerated this result tra nsmitted reference range : <=4.0. The reference r leo was not used to int erpret this result as normal/abnormal . [facility]anoLyvrdzgMRLUTIKJFY4181-21-12 11:32:00 Test Item Value Reference Range Interpretation Comments Monocytes (test code = Monocytes) 13.7 2.0-12.0 [facility]anoRwghbstAKIYUGRHOJ4917-50-14 11:32:00 Test Item Value Reference Range Interpretation Comments Segs-Bands # (test code = Segs-Bands #) 2.6 1.5-8.1 [facility]anoEeuarvjWXAGJJHHKN6791-70-05 11:32:00 Test Item Value Reference Range Interpretation Comments Basophils (test code = 0.7 See_Comment [Aut omated message] The Basophils) system which ge nerated this result tra nsmitted reference range : <=1.0. The reference r leo was not used to int erpret this result as normal/abnormal . [facility]anoCovfcmmJKTLUIIUAR1142-86-51 11:32:00 Test Item Value Reference Range Interpretation Comments Monocytes # (test code 0.7 See_Comment [Aut omated message] The = Monocytes #) system which generated this result tra nsmitted reference range : <=0.8. The reference r leo was not used to int erpret this result as normal/abnormal . [facility]anoMyvqtpsQJTELVGELN1645-55-95 11:32:00 Test Item Value Reference Range Interpretation Comments Lymphocytes # (test code = Lymphocytes 1.6 1.0-5.5 #) [facility]anoGdnchyyZKQVVKXGUD6910-46-61 11:32:00 Test Item Value Reference Range Interpretation Comments Eosinophils # (test code 0.2 See_Comment [A utomated message] The = Eosinophils #) system [employer] h generated this result tra nsmitted reference range : <=0.5. The reference r leo was not used to int erpret this result as normal/abnormal . [facility]anoKgrediiKJUOKVLRVX8367-66-25 11:32:00 Test Item Value Reference Range Interpretation Comments Segs (test code = Segs) 50.7 45.0-75.0 [facility]anoPtrwnuyMBXJDDGBWX5780-83-49 11:32:00 Test Item Value Reference Range Interpretation [...] iron deficiency anemia, and renal disease. CPT: 14404 [facility]anoFrmvtdtMIFWCQYYPO2424-14-55 11:32:00 Test Item Value Reference Range Interpretation Comments Hct (test code = Hct) 28.1 36.0-48.0 [facility]anoZcgomrxZOMCDUAUWF3731-02-11 11:32:00 Test Item Value Reference Range Interpretation Comments RBC (test code = RBC) 3.39 4.20-5.40 [facility]anoPkhdjmtWBHYFGQDSO4373-48-09 11:32:00 Test Item Value Reference Range Interpretation Comments Hgb (test code = Hgb) 8.9 12.0-16.0 [facility]anoLmczfdyTHRXKBKFZD2988-90-29 11:32:00 Test Item Value Reference Range Interpretation Comments WBC (test code = WBC) 5.1 3.7-10.4 [facility]anoNqtbhpwKQOVPMIQXK7532-28-16 11:32:00 Test Item Value Reference Range Interpretation Comments MPV (test code = MPV) 11.3 7.4-10.4 [facility]anoPbhihodNRXPIXFPAP4924-22-74 11:32:00 Test Item Value Reference Range Interpretation Comments Platelet (test code = Platelet) 118 133-450 [facility]anoClssznmYQAOJSXDPU0096-01-87 11:32:00 Test Item Value Reference Range Interpretation Comments MCHC (test code = MCHC) 31.8 32.0-36.0 [facility]anoNacowfsHLQBKJPZEM4957-87-99 11:32:00 Test Item Value Reference Range Interpretation Comments RDW (test code = RDW) 18.0 11.5-14.5 [facility]anoEpsccalYQWUWIIRSA5461-05-91 11:32:00 Test Item Value Reference Range Interpretation Comments MCV (test code = MCV) 83.0 80.0-98.0 [facility]anoPkmdtcfGSPTSUUSXC9482-78-20 11:32:00 Test Item Value Reference Range Interpretation Comments MCH (test code = MCH) 26.4 pg 27.0-31.0 [facility] CenterCvrihpaIFOUIGUDTX7683-87-67 11:32:00 Test Item Value Reference Range Interpretation Comments C3 Complement (test code = C3 137 88-201 Complement) [facility] CenterJdedhnrENPROHSRBQ7107-02-59 11:32:00 Test Item Value Reference Range Interpretation Comments HIV. (test code = Negative *NA*(07/30/16 HIV.) 5:32 AM) [facility] HospitalRilhvomJSYXYIDFYZFG8814-30-40 11:32:00 Test Item Value Reference Range Interpretation Comments AGAP (test code = AGAP) 14.6 10.0-20.0 [facility] HospitalZfutxpxBRZNYHRKHIDU7012-35-35 11:32:00 Test Item Value Reference Range Interpretation Comments eGFR (test code = eGFR) 33 [facility] HospitalWydnbikOFMFLNVQDIKW5343-00-82 11:32:00 Test Item Value Reference Range Interpretation Comments Calcium Lvl (test code = Calcium Lvl) 8.3 8.5-10.5 [facility] HospitalIxqztsiIIAJADNYMUQB1885-97-55 11:32:00 Test Item Value Reference Range Interpretation Comments Glucose Lvl (test code = Glucose Lvl) 81 70-99 [facility] HospitalLrfjnzqOJDKIWPCYSBM0111-28-15 11:32:00 Test Item Value Reference Range Interpretation Comments Creatinine Lvl (test code = Creatinine 1.95 0.50-1.40 Lvl) [facility] HospitalVamuztkQJSXXRCNTBJT1423-81-57 11:32:00 Test Item Value Reference Range Interpretation Comments BUN (test code = BUN) 55 7-22 [facility] HospitalInuorsyBZGRBJITQYDH8990-67-55 11:32:00 Test Item Value Reference Range Interpretation Comments CO2 (test code = CO2) 19 24-32 [facility] HospitalQjpodfbQVYLICQNGTXM7354-15-48 11:32:00 Test Item Value Reference Range Interpretation Comments Chloride Lvl (test code = Chloride Lvl) 110 95-109 [facility] HospitalElouhkgIMDMKWNXOAMX0458-90-28 11:32:00 Test Item Value Reference Range Interpretation Comments Sodium Lvl (test code = Sodium Lvl) 139 135-145 [facility] HospitalWuvjvdlBDRKJNFNPVXE4145-86-66 11:32:00 Test Item Value Reference Range Interpretation Comments Potassium Lvl (test code = Potassium 4.6 3.5-5.1 Lvl) [facility]anoHqnqdbbMHIBWGZXFX5943-88-75 11:32:00 Test Item Value Reference Range Interpretation Comments Lymphocytes (test code = Lymphocytes) 30.4 20.0-40.0 [facility]anoAiroqihXNSQJMOWZP9974-68-89 11:32:00 Test Item Value Reference Range Interpretation Comments Eosinophils (test code = 4.5 See_Comment [A utomated message] The Eosinophils) system which ge nerated this result tra nsmitted reference range : <=4.0. The reference r leo was not used to int erpret this result as normal/abnormal . [facility]anoBsdzqtuMIVXUKRIPS6229-35-18 11:32:00 Test Item Value Reference Range Interpretation Comments Monocytes (test code = Monocytes) 13.7 2.0-12.0 [facility]anoUfwekjqLHDMSVQYOT3637-03-57 11:32:00 Test Item Value Reference Range Interpretation Comments Segs-Bands # (test code = Segs-Bands #) 2.6 1.5-8.1 [facility]anoHipmzwxJHHYVJBGAD1811-20-25 11:32:00 Test Item Value Reference Range Interpretation Comments Basophils (test code = 0.7 See_Comment [Aut omated message] The Basophils) system which ge nerated this result tra nsmitted reference range : <=1.0. The reference r leo was not used to int erpret this result as normal/abnormal . [facility]anoTjhidyiSAXDHVKWKH8965-02-86 11:32:00 Test Item Value Reference Range Interpretation Comments Monocytes # (test code 0.7 See_Comment [Aut omated message] The = Monocytes #) system which generated this result tra nsmitted reference range : <=0.8. The reference r leo was not used to int erpret this result as normal/abnormal . [facility]anoWgxrikfZVZTDABUYS5601-13-54 11:32:00 Test Item Value Reference Range Interpretation Comments Lymphocytes # (test code = Lymphocytes 1.6 1.0-5.5 #) [facility]anoLhtwrnuWVNWEAAAXT4486-35-12 11:32:00 Test Item Value Reference Range Interpretation Comments Eosinophils # (test code 0.2 See_Comment [A utomated message] The = Eosinophils #) system whic h generated this result tra nsmitted reference range : <=0.5. The reference r leo was not used to int erpret this result as normal/abnormal . [facility]anoYdnunszIHUTQEHWWT6821-52-89 11:32:00 Test Item Value Reference Range Interpretation Comments Segs (test code = Segs) 50.7 45.0-75.0 [facility]anoRprrqffVHXXBYNPRP3788-75-42 11:32:00 Test Item Value Reference Range Interpretation [...] iron deficiency anemia, and renal disease. CPT: 19365 [facility]anoFgfazxpGTXNGGFINI3868-64-89 11:32:00 Test Item Value Reference Range Interpretation Comments Hct (test code = Hct) 28.1 36.0-48.0 [facility]anoCmouuxtHJZJOZBTJV5302-18-74 11:32:00 Test Item Value Reference Range Interpretation Comments RBC (test code = RBC) 3.39 4.20-5.40 [facility]anoYyqfxxzOSODWZMQDW1799-23-59 11:32:00 Test Item Value Reference Range Interpretation Comments Hgb (test code = Hgb) 8.9 12.0-16.0 [facility]anoDarnoxzNHBMIVMIQA1366-96-73 11:32:00 Test Item Value Reference Range Interpretation Comments WBC (test code = WBC) 5.1 3.7-10.4 [facility]anoPntxurbVOJMFXFVFQ5328-83-31 11:32:00 Test Item Value Reference Range Interpretation Comments MPV (test code = MPV) 11.3 7.4-10.4 [facility]anoBthqamfLZANZLGNOR8158-37-48 11:32:00 Test Item Value Reference Range Interpretation Comments Platelet (test code = Platelet) 118 133-450 [facility]anoFcquwhyVQPAOXOZIX1564-38-38 11:32:00 Test Item Value Reference Range Interpretation Comments MCHC (test code = MCHC) 31.8 32.0-36.0 [facility]anoTgjprzcUWGJNFPUZA9303-67-87 11:32:00 Test Item Value Reference Range Interpretation Comments RDW (test code = RDW) 18.0 11.5-14.5 [facility]anoAlmtnijEAQDXNWCMI8214-94-59 11:32:00 Test Item Value Reference Range Interpretation Comments MCV (test code = MCV) 83.0 80.0-98.0 [facility]anoJegtdvfSWXWASZDAX9713-50-59 11:32:00 Test Item Value Reference Range Interpretation Comments MCH (test code = MCH) 26.4 pg 27.0-31.0 [facility]GamxiebUBFDEKVBRD5332-07-10 11:32:00 Test Item Value Reference Range Interpretation Comments C3 Complement (test code = C3 137 88-201 Complement) [facility] CenterZmuexhuYEZVNEDRWM6008-10-86 11:32:00 Test Item Value Reference Range Interpretation Comments HIV. (test code = Negative *NA*(07/30/16 HIV.) 5:32 AM) [facility]EDAX[facility]HE[facility]WSJG1313[facility]-05 11:32:00 Test Item Value Reference Range Interpretation Comments AGAP (test code = AGAP) 14.6 10.0-20.0 [facility] HospitalObshxdxDQZPHACHUWOY1474-08-04 11:32:00 Test Item Value Reference Range Interpretation Comments eGFR (test code = eGFR) 33 [facility] HospitalRpjvyndWPNJFWNLUKKE0506-64-28 11:32:00 Test Item Value Reference Range Interpretation Comments Calcium Lvl (test code = Calcium Lvl) 8.3 8.5-10.5 [facility] HospitalUzybgfuGITFIRKMNFHN6555-36-42 11:32:00 Test Item Value Reference Range Interpretation Comments Glucose Lvl (test code = Glucose Lvl) 81 70-99 [facility] HospitalYebthvwASGFZXIUPYXE7660-28-18 11:32:00 Test Item Value Reference Range Interpretation Comments Creatinine Lvl (test code = Creatinine 1.95 0.50-1.40 Lvl) [facility] HospitalPkskspvJKGKFAHRHKUO2189-39-82 11:32:00 Test Item Value Reference Range Interpretation Comments BUN (test code = BUN) 55 7-22 [facility] HospitalMvetjdvABLYCHUPNJRS9433-66-32 11:32:00 Test Item Value Reference Range Interpretation Comments CO2 (test code = CO2) 19 24-32 [facility] HospitalLzjavprIKDPDVWLVDDN3401-59-30 11:32:00 Test Item Value Reference Range Interpretation Comments Chloride Lvl (test code = Chloride Lvl) 110 95-109 [facility] HospitalGerxvivORPICSPXHHMS7916-34-13 11:32:00 Test Item Value Reference Range Interpretation Comments Sodium Lvl (test code = Sodium Lvl) 139 135-145 [facility] HospitalGszkijgUMVXZQGWBVDP8024-90-27 11:32:00 Test Item Value Reference Range Interpretation Comments Potassium Lvl (test code = Potassium 4.6 3.5-5.1 Lvl) [facility]anoVuvgwrdCIGRVUZKWU6062-23-16 11:32:00 Test Item Value Reference Range Interpretation Comments Lymphocytes (test code = Lymphocytes) 30.4 20.0-40.0 [facility]anoBleakeeNTUEJVERAC7097-53-13 11:32:00 Test Item Value Reference Range Interpretation Comments Eosinophils (test code = 4.5 See_Comment [A utomated message] The Eosinophils) system which ge nerated this result tra nsmitted reference range : <=4.0. The reference r leo was not used to int erpret this result as normal/abnormal . [facility]anoEnonqzpOXOVXSSSWR5808-55-74 11:32:00 Test Item Value Reference Range Interpretation Comments Monocytes (test code = Monocytes) 13.7 2.0-12.0 [facility]anoTogrjuzMNTASQZLPF5312-50-24 11:32:00 Test Item Value Reference Range Interpretation Comments Segs-Bands # (test code = Segs-Bands #) 2.6 1.5-8.1 [facility]anoNkqkpkuGSUHEVKTIG5069-55-58 11:32:00 Test Item Value Reference Range Interpretation Comments Basophils (test code = 0.7 See_Comment [Aut omated message] The Basophils) system which ge nerated this result tra nsmitted reference range : <=1.0. The reference r leo was not used to int erpret this result as normal/abnormal . [facility]anoLeqlgudACAQUJFUSD5904-14-56 11:32:00 Test Item Value Reference Range Interpretation Comments Monocytes # (test code 0.7 See_Comment [Aut omated message] The = Monocytes #) system which generated this result tra nsmitted reference range : <=0.8. The reference r leo was not used to int erpret this result as normal/abnormal . [facility]anoIkmhktyNYKLFJNGRT3446-40-30 11:32:00 Test Item Value Reference Range Interpretation Comments Lymphocytes # (test code = Lymphocytes 1.6 1.0-5.5 #) [facility]anoAbdgstnAEFRXZVEQN0043-07-13 11:32:00 Test Item Value Reference Range Interpretation Comments Eosinophils # (test code 0.2 See_Comment [A utomated message] The = Eosinophils #) system whic h generated this result tra nsmitted reference range : <=0.5. The reference r leo was not used to int erpret this result as normal/abnormal . [facility]anoEntehruUPCURTXEVU7997-19-84 11:32:00 Test Item Value Reference Range Interpretation Comments Segs (test code = Segs) 50.7 45.0-75.0 [facility]anoPrnthozSEYFEIWOTZ0220-68-27 11:32:00 Test Item Value Reference Range Interpretation [...] iron deficiency anemia, and renal disease. CPT: 83203 [facility]anoLznsgqnXSHJPKJAAF7198-91-21 11:32:00 Test Item Value Reference Range Interpretation Comments Hct (test code = Hct) 28.1 36.0-48.0 [facility]anoZvnvjqaLHAKZOCZNK3218-24-71 11:32:00 Test Item Value Reference Range Interpretation Comments RBC (test code = RBC) 3.39 4.20-5.40 [facility]anoLvfxwlqWMBHPTXYQL1254-42-87 11:32:00 Test Item Value Reference Range Interpretation Comments Hgb (test code = Hgb) 8.9 12.0-16.0 [facility]anoGjvfygqQNBVUBKJVT8407-23-35 11:32:00 Test Item Value Reference Range Interpretation Comments WBC (test code = WBC) 5.1 3.7-10.4 [facility]anoPnrsfiyIISHPYWLVG1262-77-25 11:32:00 Test Item Value Reference Range Interpretation Comments MPV (test code = MPV) 11.3 7.4-10.4 [facility]anoYbvhuieTIZTFRBLDG7400-97-32 11:32:00 Test Item Value Reference Range Interpretation Comments Platelet (test code = Platelet) 118 133-450 [facility]anoGvuezwuLVDVWSIPSI3727-37-44 11:32:00 Test Item Value Reference Range Interpretation Comments MCHC (test code = MCHC) 31.8 32.0-36.0 [facility]anoYipdqknJDCWGKMAQG5182-77-73 11:32:00 Test Item Value Reference Range Interpretation Comments RDW (test code = RDW) 18.0 11.5-14.5 [facility]anoAgrranvMCDFGQKPIO2149-16-35 11:32:00 Test Item Value Reference Range Interpretation Comments MCV (test code = MCV) 83.0 80.0-98.0 [facility]anoWfikrclPZXQPMJDXT4226-01-24 11:32:00 Test Item Value Reference Range Interpretation Comments MCH (test code = MCH) 26.4 pg 27.0-31.0 [facility] CenterEfytvcpUQPDMCZDBM6605-80-97 11:32:00 Test Item Value Reference Range Interpretation Comments C3 Complement (test code = C3 137 88-201 Complement) [facility] CenterWmhlwqbSSYHCGXMRP2357-35-79 11:32:00 Test Item Value Reference Range Interpretation Comments HIV. (test code = Negative *NA*(07/30/16 HIV.) 5:32 AM) [facility]anoZuiamujEZDPMEEEMD9090-18-19 11:05:00 Test Item Value Reference Range Interpretation [...] iron deficiency anemia, and renal disease. CPT: 81922 [place] 215867-02-08 11:05:00 Test Item Value Reference Range Interpretation Comments HIV. (test code = Negative *NA*(07/29/16 HIV.) 5:05 AM) [facility] CenterRgwdjtfEGVVHQWKBS5041-89-24 11:05:00 Test Item Value Reference Range Interpretation Comments C3 Complement (test code = C3 92 88-201 Complement) [facility]anoOlpggdhBJTCAUSCTV8698-18-74 11:05:00 Test Item Value Reference Range Interpretation [...] iron deficiency anemia, and renal disease. CPT: 01225 [facility] CenterTrfpkkqVTCQOJSXPC5128-61-35 11:05:00 Test Item Value Reference Range Interpretation Comments HIV. (test code = Negative *NA*(07/29/16 HIV.) 5:05 AM) [facility] CenterBspuexxGKJFRRYNZV3748-21-97 11:05:00 Test Item Value Reference Range Interpretation Comments C3 Complement (test code = C3 92 88-201 Complement) [facility]anoTpexwukIKQYNCBUNN4653-62-92 11:05:00 Test Item Value Reference Range Interpretation [...] iron deficiency anemia, and renal disease. CPT: 53162 [facility] CenterOttkimyIVVRNLOIPW8824-99-15 11:05:00 Test Item Value Reference Range Interpretation Comments HIV. (test code = Negative *NA*(07/29/16 HIV.) 5:05 AM) [facility] CenterScbevqqOAIHWSBCYK9281-97-76 11:05:00 Test Item Value Reference Range Interpretation Comments C3 Complement (test code = C3 92 88-201 Complement) [facility]anoInapqhaLOVATWOCKA7535-44-69 11:05:00 Test Item Value Reference Range Interpretation [...] iron deficiency anemia, and renal disease. CPT: 48813 [facility] CenterGmzzndeJFXPUKWGGS1463-09-80 11:05:00 Test Item Value Reference Range Interpretation Comments HIV. (test code = Negative *NA*(07/29/16 HIV.) 5:05 AM) [facility] CenterWpcbtbjTKVBSJSVJU4608-27-93 11:05:00 Test Item Value Reference Range Interpretation Comments C3 Complement (test code = C3 92 88-201 Complement) [facility]anoAsqvvimKQAVJBZJBE4340-87-66 11:05:00 Test Item Value Reference Range Interpretation [...] iron deficiency anemia, and renal disease. CPT: 51113 [facility] CenterTmjlgfhWQSZMAMHUS3258-48-95 11:05:00 Test Item Value Reference Range Interpretation Comments HIV. (test code = Negative *NA*(07/29/16 HIV.) 5:05 AM) [facility] CenterHlrlaydQFRDEAAWKS1305-41-72 11:05:00 Test Item Value Reference Range Interpretation Comments C3 Complement (test code = C3 92 88-201 Complement) [facility] [id number] 15:50:00 Test Item Value Reference Range Interpretation Comments eGFR (test code = eGFR) 25 [facility] [id number] 15:50:00 Test Item Value Reference Range Interpretation Comments BUN (test code = BUN) 55 7-22 [facility] [id number] 15:50:00 Test Item Value Reference Range Interpretation Comments CO2 (test code = CO2) 23 24-32 [facility] [id number] 15:50:00 Test Item Value Reference Range Interpretation Comments Chloride Lvl (test code = Chloride Lvl) 109 95-109 [facility]2017-02-07 15:50:00 Test Item Value Reference Range Interpretation Comments Glucose Lvl (test code = Glucose Lvl) 101 70-99 [facility]2017-02-07 15:50:00 Test Item Value Reference Range Interpretation Comments Potassium Lvl (test code = Potassium 4.0 3.5-5.1 Lvl) [facility]2017-02-07 15:50:00 Test Item Value Reference Range Interpretation Comments Sodium Lvl (test code = Sodium Lvl) 141 135-145 [facility]2017-02-07 15:50:00 Test Item Value Reference Range Interpretation Comments AGAP (test code = AGAP) 13.0 10.0-20.0 [facility]2017-02-07 15:50:00 Test Item Value Reference Range Interpretation Comments Calcium Lvl (test code = Calcium Lvl) 7.7 8.5-10.5 [facility]2017-02-07 15:50:00 Test Item Value Reference Range Interpretation Comments Creatinine Lvl (test code = Creatinine 2.49 0.50-1.40 Lvl) [facility]anoWmmwgrzNSMAHQBRRH5044-43-05 15:50:00 Test Item Value Reference Range Interpretation Comments PT (test code = PT) 14.8 s 12.0-14.7 [facility]anoFcfmsqvBAVNMUSGQS3714-10-02 15:50:00 Test Item Value Reference Range Interpretation Comments PTT (test code = PTT) 40.8 s 22.9-35.8 [facility]anoThfclnwBFPKBOBBTW5495-32-05 15:50:00 Test Item Value Reference Range Interpretation Comments INR (test code = INR) 1.14 0.85-1.17 [facility] CenterEvqhbyaRIBARPGNQO9806-36-10 15:50:00 Test Item Value Reference Range Interpretation Comments C3 Complement (test code = C3 94 88-201 Complement) [facility]2017-02-07 15:50:00 Test Item Value Reference Range Interpretation Comments eGFR (test code = eGFR) 25 [facility]2017-02-07 15:50:00 Test Item Value Reference Range Interpretation Comments BUN (test code = BUN) 55 7-22 [facility]2017-02-07 15:50:00 Test Item Value Reference Range Interpretation Comments CO2 (test code = CO2) 23 24-32 [facility]2017-02-07 15:50:00 Test Item Value Reference Range Interpretation Comments Chloride Lvl (test code = Chloride Lvl) 109 95-109 [facility]2017-02-07 15:50:00 Test Item Value Reference Range Interpretation Comments Glucose Lvl (test code = Glucose Lvl) 101 70-99 [facility]2017-02-07 15:50:00 Test Item Value Reference Range Interpretation Comments Potassium Lvl (test code = Potassium 4.0 3.5-5.1 Lvl) [facility]2017-02-07 15:50:00 Test Item Value Reference Range Interpretation Comments Sodium Lvl (test code = Sodium Lvl) 141 135-145 [facility]2017-02-07 15:50:00 Test Item Value Reference Range Interpretation Comments AGAP (test code = AGAP) 13.0 10.0-20.0 [facility]2017-02-07 15:50:00 Test Item Value Reference Range Interpretation Comments Calcium Lvl (test code = Calcium Lvl) 7.7 8.5-10.5 [facility]2017-02-07 15:50:00 Test Item Value Reference Range Interpretation Comments Creatinine Lvl (test code = Creatinine 2.49 0.50-1.40 Lvl) [facility]anoKkzcazhADQKYMVURQ6099-66-49 15:50:00 Test Item Value Reference Range Interpretation Comments PT (test code = PT) 14.8 s 12.0-14.7 [facility]anoKwcrmbyCGQXXACKQV0661-05-31 15:50:00 Test Item Value Reference Range Interpretation Comments PTT (test code = PTT) 40.8 s 22.9-35.8 [facility]anoMickbfaHQTQFOSUCT6127-65-85 15:50:00 Test Item Value Reference Range Interpretation Comments INR (test code = INR) 1.14 0.85-1.17 [facility] CenterNhrkrhgSEPFBQEMRR8286-99-41 15:50:00 Test Item Value Reference Range Interpretation Comments C3 Complement (test code = C3 94 88-201 Complement) [facility]2017-02-07 15:50:00 Test Item Value Reference Range Interpretation Comments eGFR (test code = eGFR) 25 [place] 159637-02-07 15:50:00 Test Item Value Reference Range Interpretation Comments BUN (test code = BUN) 55 7-22 [facility]2017-02-07 15:50:00 Test Item Value Reference Range Interpretation Comments CO2 (test code = CO2) 23 24-32 [facility]2017-02-07 15:50:00 Test Item Value Reference Range Interpretation Comments Chloride Lvl (test code = Chloride Lvl) 109 95-109 [facility]2017-02-07 15:50:00 Test Item Value Reference Range Interpretation Comments Glucose Lvl (test code = Glucose Lvl) 101 70-99 [facility]2017-02-07 15:50:00 Test Item Value Reference Range Interpretation Comments Potassium Lvl (test code = Potassium 4.0 3.5-5.1 Lvl) [facility]2017-02-07 15:50:00 Test Item Value Reference Range Interpretation Comments Sodium Lvl (test code = Sodium Lvl) 141 135-145 [facility]2017-02-07 15:50:00 Test Item Value Reference Range Interpretation Comments AGAP (test code = AGAP) 13.0 10.0-20.0 [facility]2017-02-07 15:50:00 Test Item Value Reference Range Interpretation Comments Calcium Lvl (test code = Calcium Lvl) 7.7 8.5-10.5 [facility]2017-02-07 15:50:00 Test Item Value Reference Range Interpretation Comments Creatinine Lvl (test code = Creatinine 2.49 0.50-1.40 Lvl) [facility]anoTtqjmwwORKLQLTOQK2279-38-67 15:50:00 Test Item Value Reference Range Interpretation Comments PT (test code = PT) 14.8 s 12.0-14.7 [facility]anoRwrdxpnBOGSVFIPGV4768-58-65 15:50:00 Test Item Value Reference Range Interpretation Comments PTT (test code = PTT) 40.8 s 22.9-35.8 [facility]anoJskylvbILRUVKRRYD8198-44-76 15:50:00 Test Item Value Reference Range Interpretation Comments INR (test code = INR) 1.14 0.85-1.17 [facility] CenterBtsutusIXFXVWAZYB7564-42-46 15:50:00 Test Item Value Reference Range Interpretation Comments C3 Complement (test code = C3 39 90-201 Complement) [facility]2017-02-07 15:50:00 Test Item Value Reference Range Interpretation Comments eGFR (test code = eGFR) 25 [facility]2017-02-07 15:50:00 Test Item Value Reference Range Interpretation Comments BUN (test code = BUN) 55 7-22 [facility]2017-02-07 15:50:00 Test Item Value Reference Range Interpretation Comments CO2 (test code = CO2) 23 24-32 [facility]2017-02-07 15:50:00 Test Item Value Reference Range Interpretation Comments Chloride Lvl (test code = Chloride Lvl) 109 95-109 [facility]2017-02-07 15:50:00 Test Item Value Reference Range Interpretation Comments Glucose Lvl (test code = Glucose Lvl) 101 70-99 [facility]2017-02-07 15:50:00 Test Item Value Reference Range Interpretation Comments Potassium Lvl (test code = Potassium 4.0 3.5-5.1 Lvl) [facility]2017-02-07 15:50:00 Test Item Value Reference Range Interpretation Comments Sodium Lvl (test code = Sodium Lvl) 141 135-145 [facility]2017-02-07 15:50:00 Test Item Value Reference Range Interpretation Comments AGAP (test code = AGAP) 13.0 10.0-20.0 [facility]2017-02-07 15:50:00 Test Item Value Reference Range Interpretation Comments Calcium Lvl (test code = Calcium Lvl) 7.7 8.5-10.5 [facility]2017-02-07 15:50:00 Test Item Value Reference Range Interpretation Comments Creatinine Lvl (test code = Creatinine 2.49 0.50-1.40 Lvl) [facility]anoTccnnqxDWGJIRMBPE9683-75-71 15:50:00 Test Item Value Reference Range Interpretation Comments PT (test code = PT) 14.8 s 12.0-14.7 [facility]anoDyyuxphZHQCQQLZIA5680-39-82 15:50:00 Test Item Value Reference Range Interpretation Comments PTT (test code = PTT) 40.8 s 22.9-35.8 [facility]anoZvtlyvfKDPWRGNUCE2862-58-14 15:50:00 Test Item Value Reference Range Interpretation Comments INR (test code = INR) 1.14 0.85-1.17 [facility] CenterPlwkhfjOEGKZVUILW5391-67-20 15:50:00 Test Item Value Reference Range Interpretation Comments C3 Complement (test code = C3 94 88-201 Complement) [facility]2017-02-07 15:50:00 Test Item Value Reference Range Interpretation Comments eGFR (test code = eGFR) 25 [facility]2017-02-07 15:50:00 Test Item Value Reference Range Interpretation Comments BUN (test code = BUN) 55 7-22 [facility]2017-02-07 15:50:00 Test Item Value Reference Range Interpretation Comments CO2 (test code = CO2) 23 24-32 [facility]2017-02-07 15:50:00 Test Item Value Reference Range Interpretation Comments Chloride Lvl (test code = Chloride Lvl) 109 95-109 [facility]2017-02-07 15:50:00 Test Item Value Reference Range Interpretation Comments Glucose Lvl (test code = Glucose Lvl) 101 70-99 [facility]2017-02-07 15:50:00 Test Item Value Reference Range Interpretation Comments Potassium Lvl (test code = Potassium 4.0 3.5-5.1 Lvl) [facility]2017-02-07 15:50:00 Test Item Value Reference Range Interpretation Comments Sodium Lvl (test code = Sodium Lvl) 141 135-145 [facility]2017-02-07 15:50:00 Test Item Value Reference Range Interpretation Comments AGAP (test code = AGAP) 13.0 10.0-20.0 [facility]2017-02-07 15:50:00 Test Item Value Reference Range Interpretation Comments Calcium Lvl (test code = Calcium Lvl) 7.7 8.5-10.5 [facility]2017-02-07 15:50:00 Test Item Value Reference Range Interpretation Comments Creatinine Lvl (test code = Creatinine 2.49 0.50-1.40 Lvl) [facility]anoZynnjzrPUUDPJQXZL1731-24-92 15:50:00 Test Item Value Reference Range Interpretation Comments PT (test code = PT) 14.8 s 12.0-14.7 [facility]anoXjwjyimFYZMHZFHAR2128-72-66 15:50:00 Test Item Value Reference Range Interpretation Comments PTT (test code = PTT) 40.8 s 22.9-35.8 [facility]anoJbodnsoRAGAGJCEZO1642-40-08 15:50:00 Test Item Value Reference Range Interpretation Comments INR (test code = INR) 1.14 0.85-1.17 [facility] CenterDocakbnMHHFJFPDFO3672-72-80 15:50:00 Test Item Value Reference Range Interpretation Comments C3 Complement (test code = C3 94 88-201 Complement) [facility]anoTrqddvkXMKXXRXRBK3764-71-62 10:35:00 Test Item Value Reference Range Interpretation Comments Lymphocytes # (test code = Lymphocytes 1.7 1.0-5.5 #) [facility]anoLtlcqmtWMUAJCVZYH4326-46-63 10:35:00 Test Item Value Reference Range Interpretation Comments Segs-Bands # (test code = Segs-Bands #) 2.7 1.5-8.1 [facility]anoFheaazfPQJMFIRKTM1332-30-36 10:35:00 Test Item Value Reference Range Interpretation Comments Eosinophils # (test code 0.1 See_Comment [A utomated message] The = Eosinophils #) system whic h generated this result tra nsmitted reference range : <=0.5. The reference r leo was not used to int erpret this result as normal/abnormal . [facility]anoJdostlgDTFYGEXIOU8842-09-50 10:35:00 Test Item Value Reference Range Interpretation Comments Monocytes # (test code 0.7 See_Comment [Aut omated message] The = Monocytes #) system which generated this result tra nsmitted reference range : <=0.8. The reference r leo was not used to int erpret this result as normal/abnormal . [facility]anoBnrbwdpOREBOKMGKT1719-84-81 10:35:00 Test Item Value Reference Range Interpretation Comments Segs (test code = Segs) 51.3 45.0-75.0 [facility]anoTmojcfvVQLUOGGWNY1135-48-82 10:35:00 Test Item Value Reference Range Interpretation Comments Lymphocytes (test code = Lymphocytes) 31.6 20.0-40.0 [facility]anoOzyjeomIHQWWZANKI8448-05-25 10:35:00 Test Item Value Reference Range Interpretation Comments Monocytes (test code = Monocytes) 14.1 2.0-12.0 [facility] [place]VzagjfjHOACDJWRVK8059-41-01 10:35:00 Test Item Value Reference Range Interpretation Comments Eosinophils (test code = 2.6 See_Comment [A utomated message] The Eosinophils) system which ge nerated this result tra nsmitted reference range : <=4.0. The reference r leo was not used to int erpret this result as normal/abnormal . [facility] [place]anoFldnwszLZEKSPFKGL9961-42-61 10:35:00 Test Item Value Reference Range Interpretation Comments Basophils (test code = 0.4 See_Comment [Aut omated message] The Basophils) system which ge nerated this result tra nsmitted reference range : <=1.0. The reference r leo was not used to int erpret this result as normal/abnormal . [facility] [place]anoKguwjduQOGKWTHVYO3035-83-30 10:35:00 Test Item Value Reference Range Interpretation Comments PB Smear Path Peripheral blood smear shows (test code = PB hypochromic normocytic Smear Path) anemia with anisopoikilocytsosis, no increase in schistocytes, slight polychromasia, a few estella cells, moderate thrombocytopenia. Impression: (1) no evidence of microangiopathic hemolysis, (2) RBC morphology is suggestive of anemia of chronic disease or iron deficiency anemia, and renal disease. CPT: 87858 [facility] [place]anoYaquyknXYQXPGXLLN8666-60-44 10:35:00 Test Item Value Reference Range Interpretation Comments Hct (test code = Hct) 29.3 36.0-48.0 [facility] [place]anoQfgpxtcYVICUGHNJQ1128-14-04 10:35:00 Test Item Value Reference Range Interpretation Comments Hgb (test code = Hgb) 9.2 12.0-16.0 [facility] [place]anoRqaefjyWFWPZOHXEJ6041-56-29 10:35:00 Test Item Value Reference Range Interpretation Comments RBC (test code = RBC) 3.54 4.20-5.40 [facility] [place]anoNwvzzkySWRLXLRZYS5885-99-62 10:35:00 Test Item Value Reference Range Interpretation Comments WBC (test code = WBC) 5.3 3.7-10.4 [facility] [place]anoXtndhwxCQNKZZDXXQ1608-62-69 10:35:00 Test Item Value Reference Range Interpretation Comments Platelet (test code = Platelet) 87 133-450 [facility] [place]anoFldleopXAKLDJNYJW4275-01-17 10:35:00 Test Item Value Reference Range Interpretation Comments MCHC (test code = MCHC) 31.4 32.0-36.0 [facility] [place]anoGgdwjilFMDWCBXXZG1465-31-34 10:35:00 Test Item Value Reference Range Interpretation Comments RDW (test code = RDW) 17.9 11.5-14.5 [facility] [place]anoVowpcpgZNSTQFNSJG9666-20-88 10:35:00 Test Item Value Reference Range Interpretation Comments MPV (test code = MPV) 10.9 7.4-10.4 [facility] [place]anoQhpsvdsLZZRUIHVAG3163-38-53 10:35:00 Test Item Value Reference Range Interpretation Comments MCH (test code = MCH) 26.0 pg 27.0-31.0 [facility] [place]anoVanyzcdMFEZQEFKIB0009-11-47 10:35:00 Test Item Value Reference Range Interpretation Comments MCV (test code = MCV) 82.8 80.0-98.0 [facility] CenterMvbcuvjNDKSXIPGLY3938-92-32 10:35:00 Test Item Value Reference Range Interpretation Comments HIV. (test code = Negative *NA*(07/28/16 HIV.) 4:35 AM) [facility] [place]anoWkmxtbdDZOWRHUSFZ2005-80-05 10:35:00 Test Item Value Reference Range Interpretation Comments Lymphocytes # (test code = Lymphocytes 1.7 1.0-5.5 #) [facility] [place]anoAbwgwxxZBGWDAGRWR0034-40-57 10:35:00 Test Item Value Reference Range Interpretation Comments Segs-Bands # (test code = Segs-Bands #) 2.7 1.5-8.1 [facility] [place]anoIgfsympHBNJQZUOBR3222-61-32 10:35:00 Test Item Value Reference Range Interpretation Comments Eosinophils # (test code 0.1 See_Comment [A utomated message] The = Eosinophils #) system whic h generated this result tra nsmitted reference range : <=0.5. The reference r leo was not used to int erpret this result as normal/abnormal . [facility] [place]anoHpeaitmMIUWZUJFXZ4470-99-48 10:35:00 Test Item Value Reference Range Interpretation Comments Monocytes # (test code 0.7 See_Comment [Aut omated message] The = Monocytes #) system which generated this result tra nsmitted reference range : <=0.8. The reference r leo was not used to int erpret this result as normal/abnormal . [facility] [place]anoSvkhchqWBZBYZLJAX0281-26-07 10:35:00 Test Item Value Reference Range Interpretation Comments Segs (test code = Segs) 51.3 45.0-75.0 [facility] [place]anoTtddavlXWTSZRDUZL5805-17-44 10:35:00 Test Item Value Reference Range Interpretation Comments Lymphocytes (test code = Lymphocytes) 31.6 20.0-40.0 [facility] [place]anoGflikngPERILRKGZM9086-27-89 10:35:00 Test Item Value Reference Range Interpretation Comments Monocytes (test code = Monocytes) 14.1 2.0-12.0 [facility] [place]anoFkidkpaIRHFNTEXAH2132-87-76 10:35:00 Test Item Value Reference Range Interpretation Comments Eosinophils (test code = 2.6 See_Comment [A utomated message] The Eosinophils) system which ge nerated this result tra nsmitted reference range : <=4.0. The reference r leo was not used to int erpret this result as normal/abnormal . [facility] [place]anoStutokxBCRJWTAJOF7003-43-61 10:35:00 Test Item Value Reference Range Interpretation Comments Basophils (test code = 0.4 See_Comment [Aut omated message] The Basophils) system which ge nerated this result tra nsmitted reference range : <=1.0. The reference r leo was not used to int erpret this result as normal/abnormal . [facility] [place]anoEdiwiakNZSOSGTXEG3265-44-83 10:35:00 Test Item Value Reference Range Interpretation Comments PB Smear Path Peripheral blood smear shows (test code = PB hypochromic normocytic Smear Path) anemia with anisopoikilocytsosis, no increase in schistocytes, slight polychromasia, a few estella cells, moderate thrombocytopenia. Impression: (1) no evidence of microangiopathic hemolysis, (2) RBC morphology is suggestive of anemia of chronic disease or iron deficiency anemia, and renal disease. CPT: 97690 [facility] [place]XpbxupnLREGOFWOPI6298-11-63 10:35:00 Test Item Value Reference Range Interpretation Comments Hct (test code = Hct) 29.3 36.0-48.0 [facility] [place]anoTyztpweFQJGWLYMFY2349-54-99 10:35:00 Test Item Value Reference Range Interpretation Comments Hgb (test code = Hgb) 9.2 12.0-16.0 [facility] [place]XmpxxvzJTITHEZPCR1010-59-43 10:35:00 Test Item Value Reference Range Interpretation Comments RBC (test code = RBC) 3.54 4.20-5.40 [facility] [place]anoOfcizmvPMZCWMYFYZ6051-55-05 10:35:00 Test Item Value Reference Range Interpretation Comments WBC (test code = WBC) 5.3 3.7-10.4 [facility] [place]anoBkbxrteAFXSWMPJZS4237-98-19 10:35:00 Test Item Value Reference Range Interpretation Comments Platelet (test code = Platelet) 87 133-450 [facility] [place]anoZizrypnVHJCFZOKGM4925-35-35 10:35:00 Test Item Value Reference Range Interpretation Comments MCHC (test code = MCHC) 31.4 32.0-36.0 [facility] [place]anoYpgrdseREORPVPRJL5984-08-13 10:35:00 Test Item Value Reference Range Interpretation Comments RDW (test code = RDW) 17.9 11.5-14.5 [facility] [place]anoMitemkzOHLJSOIYPS6667-20-44 10:35:00 Test Item Value Reference Range Interpretation Comments MPV (test code = MPV) 10.9 7.4-10.4 [facility] [place]anoVfihchzNUFWARHOKL1937-63-28 10:35:00 Test Item Value Reference Range Interpretation Comments MCH (test code = MCH) 26.0 pg 27.0-31.0 [facility] [place]anoYcqiwmpMBKGGDTGAW5383-56-64 10:35:00 Test Item Value Reference Range Interpretation Comments MCV (test code = MCV) 82.8 80.0-98.0 [facility] CenterVqjdhqsJAMNWQNOCO0235-98-23 10:35:00 Test Item Value Reference Range Interpretation Comments HIV. (test code = Negative *NA*(07/28/16 HIV.) 4:35 AM) [facility] [place]XmgijzmIBYLTBVICH4232-27-93 10:35:00 Test Item Value Reference Range Interpretation Comments Lymphocytes # (test code = Lymphocytes 1.7 1.0-5.5 #) [facility] [place]anoRgabkgiFUNSHSLMUA1007-80-75 10:35:00 Test Item Value Reference Range Interpretation Comments Segs-Bands # (test code = Segs-Bands #) 2.7 1.5-8.1 [facility] [place]anoEwikdgyMSVGAAEHHX3811-19-84 10:35:00 Test Item Value Reference Range Interpretation Comments Eosinophils # (test code 0.1 See_Comment [A utomated message] The = Eosinophils #) system whic h generated this result tra nsmitted reference range : <=0.5. The reference r leo was not used to int erpret this result as normal/abnormal . [facility] [place]anoLvygxugCQDSIQLDNS1161-75-63 10:35:00 Test Item Value Reference Range Interpretation Comments Monocytes # (test code 0.7 See_Comment [Aut omated message] The = Monocytes #) system which generated this result tra nsmitted reference range : <=0.8. The reference r leo was not used to int erpret this result as normal/abnormal . [facility] [place]anoGvnijncFHTRPIYXDM8194-69-92 10:35:00 Test Item Value Reference Range Interpretation Comments Segs (test code = Segs) 51.3 45.0-75.0 [facility] [place]anoCaqbbyiLVOKDWENLF5405-59-20 10:35:00 Test Item Value Reference Range Interpretation Comments Lymphocytes (test code = Lymphocytes) 31.6 20.0-40.0 [facility] [place]anoImyteedKLOJGDAMNC9004-74-78 10:35:00 Test Item Value Reference Range Interpretation Comments Monocytes (test code = Monocytes) 14.1 2.0-12.0 [facility] [place]anoHoqokzpOQQKCEAYIF3365-66-38 10:35:00 Test Item Value Reference Range Interpretation Comments Eosinophils (test code = 2.6 See_Comment [A utomated message] The Eosinophils) system which ge nerated this result tra nsmitted reference range : <=4.0. The reference r leo was not used to int erpret this result as normal/abnormal . [facility] [place]anoWpwgsbuDEELWCZULF6981-43-82 10:35:00 Test Item Value Reference Range Interpretation Comments Basophils (test code = 0.4 See_Comment [Aut omated message] The Basophils) system which ge nerated this result tra nsmitted reference range : <=1.0. The reference r leo was not used to int erpret this result as normal/abnormal . [facility] [place]anoUdtmbdaAUBWKSLUYA5097-95-31 10:35:00 Test Item Value Reference Range Interpretation Comments PB Smear Path Peripheral blood smear shows (test code = PB hypochromic normocytic Smear Path) anemia with anisopoikilocytsosis, no increase in schistocytes, slight polychromasia, a few estella cells, moderate thrombocytopenia. Impression: (1) no evidence of microangiopathic hemolysis, (2) RBC morphology is suggestive of anemia of chronic disease or iron deficiency anemia, and renal disease. CPT: 62744 [facility] [place]anoJdrprwySCRIDZZKGO2957-08-80 10:35:00 Test Item Value Reference Range Interpretation Comments Hct (test code = Hct) 29.3 36.0-48.0 [facility] [place]anoNmwvrutIAIMQPQCXX0939-54-49 10:35:00 Test Item Value Reference Range Interpretation Comments Hgb (test code = Hgb) 9.2 12.0-16.0 [facility] [place]anoZgdlejtKEUTBLOXOT7182-47-33 10:35:00 Test Item Value Reference Range Interpretation Comments RBC (test code = RBC) 3.54 4.20-5.40 [facility] [place]anoInsnpijOGVCNKHSEG2747-46-35 10:35:00 Test Item Value Reference Range Interpretation Comments WBC (test code = WBC) 5.3 3.7-10.4 [facility] [place]anoTjpbbpgKZLURPJBKN7443-02-52 10:35:00 Test Item Value Reference Range Interpretation Comments Platelet (test code = Platelet) 87 133-450 [facility] [place]anoDmjslpbVXWBZNNIWB7081-45-21 10:35:00 Test Item Value Reference Range Interpretation Comments MCHC (test code = MCHC) 31.4 32.0-36.0 [facility] [place]anoUcqmryuFYQLMYFGPZ2918-56-08 10:35:00 Test Item Value Reference Range Interpretation Comments RDW (test code = RDW) 17.9 11.5-14.5 [facility] [place]anoGfyiizbWWURRFWDEE0501-40-93 10:35:00 Test Item Value Reference Range Interpretation Comments MPV (test code = MPV) 10.9 7.4-10.4 [facility] [place]anoElpplirXTMBDKDFSO9907-15-01 10:35:00 Test Item Value Reference Range Interpretation Comments MCH (test code = MCH) 26.0 pg 27.0-31.0 [facility] [place]anoFaoaahpBDVIOOXKUI0675-62-88 10:35:00 Test Item Value Reference Range Interpretation Comments MCV (test code = MCV) 82.8 80.0-98.0 [facility] CenterFppfbdgYADDXOCLAW0994-19-73 10:35:00 Test Item Value Reference Range Interpretation Comments HIV. (test code = Negative *NA*(07/28/16 HIV.) 4:35 AM) [facility] [place]anoHvmhskxIRFBQRWJNA3922-34-36 10:35:00 Test Item Value Reference Range Interpretation Comments Lymphocytes # (test code = Lymphocytes 1.7 1.0-5.5 #) [facility] [place]anoFyvsigoAFKOKZLGFI3671-75-37 10:35:00 Test Item Value Reference Range Interpretation Comments Segs-Bands # (test code = Segs-Bands #) 2.7 1.5-8.1 [facility] [place]anoXmhlksuFUMCMNDVPI3846-74-15 10:35:00 Test Item Value Reference Range Interpretation Comments Eosinophils # (test code 0.1 See_Comment [A utomated message] The = Eosinophils #) system whic h generated this result tra nsmitted reference range : <=0.5. The reference r leo was not used to int erpret this result as normal/abnormal . [facility] [place]anoVgjyysdTJXWKUCZRU9028-10-89 10:35:00 Test Item Value Reference Range Interpretation Comments Monocytes # (test code 0.7 See_Comment [Aut omated message] The = Monocytes #) system which generated this result tra nsmitted reference range : <=0.8. The reference r leo was not used to int erpret this result as normal/abnormal . [facility] [place]anoYmzgyplMUQHFIDBGM0346-77-76 10:35:00 Test Item Value Reference Range Interpretation Comments Segs (test code = Segs) 51.3 45.0-75.0 [facility] [place]anoIfatsrbZQSMDXVWFA1343-26-46 10:35:00 Test Item Value Reference Range Interpretation Comments Lymphocytes (test code = Lymphocytes) 31.6 20.0-40.0 [facility] [place]anoAuvflqiPVAOMCYGXW3415-67-14 10:35:00 Test Item Value Reference Range Interpretation Comments Monocytes (test code = Monocytes) 14.1 2.0-12.0 [facility] [place]anoDnfvnaoYKCNMIMNXD1453-71-03 10:35:00 Test Item Value Reference Range Interpretation Comments Eosinophils (test code = 2.6 See_Comment [A utomated message] The Eosinophils) system which ge nerated this result tra nsmitted reference range : <=4.0. The reference r leo was not used to int erpret this result as normal/abnormal . [facility] [place]anoCugajuhNMHGGVHRZX1694-21-05 10:35:00 Test Item Value Reference Range Interpretation Comments Basophils (test code = 0.4 See_Comment [Aut omated message] The Basophils) system which ge nerated this result tra nsmitted reference range : <=1.0. The reference r leo was not used to int erpret this result as normal/abnormal . [facility] [place]anoGeuflwvTPTSZCYPPJ0825-57-14 10:35:00 Test Item Value Reference Range Interpretation Comments PB Smear Path Peripheral blood smear shows (test code = PB hypochromic normocytic Smear Path) anemia with anisopoikilocytsosis, no increase in schistocytes, slight polychromasia, a few estella cells, moderate thrombocytopenia. Impression: (1) no evidence of microangiopathic hemolysis, (2) RBC morphology is suggestive of anemia of chronic disease or iron deficiency anemia, and renal disease. CPT: 84820 [facility] [place]anoGokzlxzQEVJEYZGWT0805-85-04 10:35:00 Test Item Value Reference Range Interpretation Comments Hct (test code = Hct) 29.3 36.0-48.0 [facility] [place]anoEwbqnqjWQVCHTCHHE8347-65-65 10:35:00 Test Item Value Reference Range Interpretation Comments Hgb (test code = Hgb) 9.2 12.0-16.0 [facility] [place]anoUxublbdFVAIJOLFVD1856-24-53 10:35:00 Test Item Value Reference Range Interpretation Comments RBC (test code = RBC) 3.54 4.20-5.40 [facility] [place]anoDoofziiGNBTWJQTZX1986-56-25 10:35:00 Test Item Value Reference Range Interpretation Comments WBC (test code = WBC) 5.3 3.7-10.4 [facility] [place]anoDtfprexCLCSGYPXFC9898-89-23 10:35:00 Test Item Value Reference Range Interpretation Comments Platelet (test code = Platelet) 87 133-450 [facility] [place]anoAizpzhsLCLQSTKJBQ5647-32-28 10:35:00 Test Item Value Reference Range Interpretation Comments MCHC (test code = MCHC) 31.4 32.0-36.0 [facility] [place]anoKgbgkhhONFOOUQHTT0673-44-72 10:35:00 Test Item Value Reference Range Interpretation Comments RDW (test code = RDW) 17.9 11.5-14.5 [facility] [place]anoDdfbmaaJXPWTCSZET0197-08-37 10:35:00 Test Item Value Reference Range Interpretation Comments MPV (test code = MPV) 10.9 7.4-10.4 [facility] [place]anoEjbymbuXTDMLVMZVX6950-07-70 10:35:00 Test Item Value Reference Range Interpretation Comments MCH (test code = MCH) 26.0 pg 27.0-31.0 [facility] [place]anoDhdnvorYRYIBIYMTP4787-75-43 10:35:00 Test Item Value Reference Range Interpretation Comments MCV (test code = MCV) 82.8 80.0-98.0 [facility]ArikuecZMBWCCGSDW9811-00-30 10:35:00 Test Item Value Reference Range Interpretation Comments HIV. (test code = Negative *NA*(07/28/16 HIV.) 4:35 AM) [facility] [place]anoUawpzeeDPLQTWSYSB6773-52-51 10:35:00 Test Item Value Reference Range Interpretation Comments Lymphocytes # (test code = Lymphocytes 1.7 1.0-5.5 #) [facility] [place]anoSuzvlzmLHFUVQUHGY6577-66-50 10:35:00 Test Item Value Reference Range Interpretation Comments Segs-Bands # (test code = Segs-Bands #) 2.7 1.5-8.1 [facility] [place]anoFmsvpzzCPQYOXCQLP9020-95-04 10:35:00 Test Item Value Reference Range Interpretation Comments Eosinophils # (test code 0.1 See_Comment [A utomated message] The = Eosinophils #) system whic h generated this result tra nsmitted reference range : <=0.5. The reference r leo was not used to int erpret this result as normal/abnormal . [facility] [place]anoOxtpbomHXCRRLYHMY3677-94-82 10:35:00 Test Item Value Reference Range Interpretation Comments Monocytes # (test code 0.7 See_Comment [Aut omated message] The = Monocytes #) system which generated this result tra nsmitted reference range : <=0.8. The reference r leo was not used to int erpret this result as normal/abnormal . [facility] [place]anoUyvsmmlJGNPUVDIJT7681-89-51 10:35:00 Test Item Value Reference Range Interpretation Comments Segs (test code = Segs) 51.3 45.0-75.0 [facility] [place]anoGoanzzdPQHBBFLMTA2048-36-18 10:35:00 Test Item Value Reference Range Interpretation Comments Lymphocytes (test code = Lymphocytes) 31.6 20.0-40.0 [facility] [place]anoOblojjtDCNNUURTLW1622-73-45 10:35:00 Test Item Value Reference Range Interpretation Comments Monocytes (test code = Monocytes) 14.1 2.0-12.0 [facility] [place]anoOupzcxsJKBWDMUVBN5531-62-44 10:35:00 Test Item Value Reference Range Interpretation Comments Eosinophils (test code = 2.6 See_Comment [A utomated message] The Eosinophils) system which ge nerated this result tra nsmitted reference range : <=4.0. The reference r leo was not used to int erpret this result as normal/abnormal . [facility] [place]anoJfdrreeCYOYFIGZNF6550-38-76 10:35:00 Test Item Value Reference Range Interpretation Comments Basophils (test code = 0.4 See_Comment [Aut omated message] The Basophils) system which ge nerated this result tra nsmitted reference range : <=1.0. The reference r leo was not used to int erpret this result as normal/abnormal . [facility] [place]anoHcrouveMQZJTIOUOH3629-35-89 10:35:00 Test Item Value Reference Range Interpretation Comments PB Smear Path Peripheral blood smear shows (test code = PB hypochromic normocytic Smear Path) anemia with anisopoikilocytsosis, no increase in schistocytes, slight polychromasia, a few estella cells, moderate thrombocytopenia. Impression: (1) no evidence of microangiopathic hemolysis, (2) RBC morphology is suggestive of anemia of chronic disease or iron deficiency anemia, and renal disease. CPT: 76005 [facility] [place]anoIkovzzcHNKOWOIGLI1071-61-36 10:35:00 Test Item Value Reference Range Interpretation Comments Hct (test code = Hct) 29.3 36.0-48.0 [facility] [place]anoRyeeorrJXOCWDSDIF4841-13-21 10:35:00 Test Item Value Reference Range Interpretation Comments Hgb (test code = Hgb) 9.2 12.0-16.0 [facility] [place]anoWizsosuRAWDLSLOZC6871-01-76 10:35:00 Test Item Value Reference Range Interpretation Comments RBC (test code = RBC) 3.54 4.20-5.40 [facility] [place]anoFmxahwuVFQNVGGEKC7141-28-75 10:35:00 Test Item Value Reference Range Interpretation Comments WBC (test code = WBC) 5.3 3.7-10.4 [facility] PlanoZojrrsyEXBZCSDAEM5406-12-57 10:35:00 Test Item Value Reference Range Interpretation Comments Platelet (test code = Platelet) 87 133-450 [facility] [place]anoNyrgwejODTCINYZTJ3087-57-04 10:35:00 Test Item Value Reference Range Interpretation Comments MCHC (test code = MCHC) 31.4 32.0-36.0 [facility] [place]anoMkgqcesOKHURJJNAC7808-62-18 10:35:00 Test Item Value Reference Range Interpretation Comments RDW (test code = RDW) 17.9 11.5-14.5 [facility] PlanoJkrlzhzKKMGSMTMQC3358-45-23 10:35:00 Test Item Value Reference Range Interpretation Comments MPV (test code = MPV) 10.9 7.4-10.4 [facility] PlanoTrqbokgAVTEGHPFTU0365-19-16 10:35:00 Test Item Value Reference Range Interpretation Comments MCH (test code = MCH) 26.0 pg 27.0-31.0 [facility] CenterIepmzrrIFIYLPZPBW5995-15-68 10:35:00 Test Item Value Reference Range Interpretation Comments MCV (test code = MCV) 82.8 80.0-98.0 [facility] CenterMjbqiqrLCAMHDWXYH1999-27-83 10:35:00 Test Item Value Reference Range Interpretation Comments HIV. (test code = Negative *NA*(07/28/16 HIV.) 4:35 AM) [facility] CenterCARDIAC VIMYCAS4495-50-87 10:22:00 Test Item Value Reference Range Interpretation Comments Total CK (test code = Total CK) 190 12-191 [facility] CenterHeap VMFUZ2977-88-69 10:22:00 Test Item Value Reference Range Interpretation Comments Calcium Lvl (test code = Calcium Lvl) 7.8 8.5-10.5 [facility]2017-02-06 10:22:00 Test Item Value Reference Range Interpretation Comments CO2 (test code = CO2) 21 24-32 [facility] UJATZ1889-46-49 10:22:00 Test Item Value Reference Range Interpretation Comments Sodium Lvl (test code = Sodium Lvl) 140 135-145 [facility] LCJVC4570-58-84 10:22:00 Test Item Value Reference Range Interpretation Comments Potassium Lvl (test code = Potassium 3.8 3.5-5.1 Lvl) [facility]2017-02-06 10:22:00 Test Item Value Reference Range Interpretation Comments Chloride Lvl (test code = Chloride Lvl) 106 95-109 [facility]2017-02-06 10:22:00 Test Item Value Reference Range Interpretation Comments Bili Total (test code = Bili Total) 0.4 0.2-1.3 [facility]2017-02-06 10:22:00 Test Item Value Reference Range Interpretation Comments Alk Phos (test code = Alk Phos) 74 39-136 [facility]2017-02-06 10:22:00 Test Item Value Reference Range Interpretation Comments eGFR (test code = eGFR) 19 [facility]2017-02-06 10:22:00 Test Item Value Reference Range Interpretation Comments Total Protein (test code = Total 5.2 6.4-8.4 Protein) [facility]2017-02-06 10:22:00 Test Item Value Reference Range Interpretation Comments ALT (test code = ALT) 822 See_Comment [Auto mated message] The system which ge nerated this result transmit rohit reference range : <=65. The reference range was not used to interpr et this result as reji l/abnormal. [facility]2017-02-06 10:22:00 Test Item Value Reference Range Interpretation Comments AST (test code = AST) 205 See_Comment [Auto mated message] The system which ge nerated this result transmit rohit reference range : <=37. The reference range was not used to interpr et this result as reji l/abnormal. [facility]2017-02-06 10:22:00 Test Item Value Reference Range Interpretation Comments Albumin Lvl (test code = Albumin Lvl) 1.8 3.5-5.0 [facility]2017-02-06 10:22:00 Test Item Value Reference Range Interpretation Comments BUN (test code = BUN) 54 7-22 [facility]2017-02-06 10:22:00 Test Item Value Reference Range Interpretation Comments Glucose Lvl (test code = Glucose Lvl) 143 70-99 [facility]2017-02-06 10:22:00 Test Item Value Reference Range Interpretation Comments Creatinine Lvl (test code = Creatinine 3.11 0.50-1.40 Lvl) [facility]2017-02-06 10:22:00 Test Item Value Reference Range Interpretation Comments B/C Ratio (test code = B/C Ratio) 17 6-25 [facility]2017-02-06 10:22:00 Test Item Value Reference Range Interpretation Comments AGAP (test code = AGAP) 16.8 10.0-20.0 [facility]2017-02-06 10:22:00 Test Item Value Reference Range Interpretation Comments Globulin (test code = Globulin) 3.4 2.7-4.2 [facility]2017-02-06 10:22:00 Test Item Value Reference Range Interpretation Comments A/G Ratio (test code = A/G Ratio) 0.5 0.7-1.6 [facility]2017-02-06 10:22:00 Test Item Value Reference Range Interpretation Comments Magnesium Lvl (test code = Magnesium 2.0 1.8-2.4 Lvl) [facility]2017-02-06 10:22:00 Test Item Value Reference Range Interpretation Comments Phosphorus (test code = Phosphorus) 3.7 2.5-4.5 [facility]Jx[facility]IL[facility]N2016[facility] 10:22:00 Test Item Value Reference Range Interpretation Comments RDW (test code = RDW) 17.7 11.5-14.5 [facility]anoHmdmmzlIDVIRCNJSQ3940-64-94 10:22:00 Test Item Value Reference Range Interpretation Comments MCHC (test code = MCHC) 32.9 32.0-36.0 [facility]anoWtzwuowMSWAVFXDWK5075-00-99 10:22:00 Test Item Value Reference Range Interpretation Comments Hct (test code = Hct) 25.4 36.0-48.0 [facility]anoCtpxjxeDTWTLGTAIK4604-27-37 10:22:00 Test Item Value Reference Range Interpretation Comments MCH (test code = MCH) 26.4 pg 27.0-31.0 [facility]anoPhmoyvqOKVVUIDIVI7710-71-24 10:22:00 Test Item Value Reference Range Interpretation Comments MCV (test code = MCV) 80.3 80.0-98.0 [facility]anoDmbrvijIVWCNCBDDD6633-97-87 10:22:00 Test Item Value Reference Range Interpretation Comments MPV (test code = MPV) 11.4 7.4-10.4 [facility]anoPdlfhkpGUAVNVUMBN3522-28-31 10:22:00 Test Item Value Reference Range Interpretation Comments Platelet (test code = Platelet) 74 133-450 [facility]anoFnlsdfeTQVOFLZLWN8337-18-91 10:22:00 Test Item Value Reference Range Interpretation Comments RBC (test code = RBC) 3.16 4.20-5.40 [facility]anoAmlbczyDUILIMLJKH9737-92-59 10:22:00 Test Item Value Reference Range Interpretation Comments WBC (test code = WBC) 5.3 3.7-10.4 [facility]anoVibyvmoPKVWEPSPIA1930-51-71 10:22:00 Test Item Value Reference Range Interpretation Comments Hgb (test code = Hgb) 8.4 12.0-16.0 [facility]anoBknmvhcODAXTYFLJG6569-52-57 10:22:00 Test Item Value Reference Range Interpretation Comments Monocytes (test code = Monocytes) 14.5 2.0-12.0 [facility]anoPagfoanYHZGIWTVCR8110-66-56 10:22:00 Test Item Value Reference Range Interpretation Comments Lymphocytes (test code = Lymphocytes) 29.8 20.0-40.0 [facility]anoXbxpwpgFWRAQYMIEG1445-25-23 10:22:00 Test Item Value Reference Range Interpretation Comments Eosinophils # (test code 0.1 See_Comment [A utomated message] The = Eosinophils #) system whic h generated this result tra nsmitted reference range : <=0.5. The reference r leo was not used to int erpret this result as normal/abnormal . [facility]anoFbztkmvSXAEIDTDDS3171-14-37 10:22:00 Test Item Value Reference Range Interpretation Comments Monocytes # (test code 0.8 See_Comment [Aut omated message] The = Monocytes #) system which generated this result tra nsmitted reference range : <=0.8. The reference r leo was not used to int erpret this result as normal/abnormal . [facility]anoKamhdnhUTUIFNZIZH5238-86-86 10:22:00 Test Item Value Reference Range Interpretation Comments Segs-Bands # (test code = Segs-Bands #) 2.9 1.5-8.1 [facility]anoUfyubafPMGQASODSQ7541-30-89 10:22:00 Test Item Value Reference Range Interpretation Comments Lymphocytes # (test code = Lymphocytes 1.6 1.0-5.5 #) [facility]anoAvvuewbEUSKXKPEIU1702-82-00 10:22:00 Test Item Value Reference Range Interpretation Comments Basophils (test code = 0.4 See_Comment [Aut omated message] The Basophils) system which ge nerated this result tra nsmitted reference range : <=1.0. The reference r leo was not used to int erpret this result as normal/abnormal . [facility]anoJndkwjjVHQXNPVRKR3930-93-35 10:22:00 Test Item Value Reference Range Interpretation Comments Eosinophils (test code = 1.2 See_Comment [A utomated message] The Eosinophils) system which ge nerated this result tra nsmitted reference range : <=4.0. The reference r leo was not used to int erpret this result as normal/abnormal . [facility]anoZngzkrpEBXEGQFPOI2137-56-14 10:22:00 Test Item Value Reference Range Interpretation Comments Segs (test code = Segs) 54.1 45.0-75.0 [facility] SISYKSJWB7594-08-84 10:22:00 Test Item Value Reference Range Interpretation Comments Hgb A1C (test code = Hgb A1C) 8.9 [facility] ZILASLQ9884-70-51 10:22:00 Test Item Value Reference Range Interpretation Comments Total CK (test code = Total CK) 190 12-191 [facility]2017-02-06 10:22:00 Test Item Value Reference Range Interpretation Comments Calcium Lvl (test code = Calcium Lvl) 7.8 8.5-10.5 [facility]2017-02-06 10:22:00 Test Item Value Reference Range Interpretation Comments CO2 (test code = CO2) 21 24-32 [facility]2017-02-06 10:22:00 Test Item Value Reference Range Interpretation Comments Sodium Lvl (test code = Sodium Lvl) 140 135-145 [facility]2017-02-06 10:22:00 Test Item Value Reference Range Interpretation Comments Potassium Lvl (test code = Potassium 3.8 3.5-5.1 Lvl) [facility]2017-02-06 10:22:00 Test Item Value Reference Range Interpretation Comments Chloride Lvl (test code = Chloride Lvl) 106 95-109 [facility]2017-02-06 10:22:00 Test Item Value Reference Range Interpretation Comments Bili Total (test code = Bili Total) 0.4 0.2-1.3 [facility]2017-02-06 10:22:00 Test Item Value Reference Range Interpretation Comments Alk Phos (test code = Alk Phos) 74 39-136 [facility]2017-02-06 10:22:00 Test Item Value Reference Range Interpretation Comments eGFR (test code = eGFR) 19 [facility]2017-02-06 10:22:00 Test Item Value Reference Range Interpretation Comments Total Protein (test code = Total 5.2 6.4-8.4 Protein) [facility]2017-02-06 10:22:00 Test Item Value Reference Range Interpretation Comments ALT (test code = ALT) 822 See_Comment [Auto mated message] The system which ge nerated this result transmit rohit reference range : <=65. The reference range was not used to interpr et this result as reji l/abnormal. [facility]2017-02-06 10:22:00 Test Item Value Reference Range Interpretation Comments AST (test code = AST) 205 See_Comment [Auto mated message] The system which ge nerated this result transmit rohit reference range : <=37. The reference range was not used to interpr et this result as reji l/abnormal. [facility]2017-02-06 10:22:00 Test Item Value Reference Range Interpretation Comments Albumin Lvl (test code = Albumin Lvl) 1.8 3.5-5.0 [facility]2017-02-06 10:22:00 Test Item Value Reference Range Interpretation Comments BUN (test code = BUN) 54 7-22 [facility]2017-02-06 10:22:00 Test Item Value Reference Range Interpretation Comments Glucose Lvl (test code = Glucose Lvl) 143 70-99 [facility]2017-02-06 10:22:00 Test Item Value Reference Range Interpretation Comments Creatinine Lvl (test code = Creatinine 3.11 0.50-1.40 Lvl) [facility]2017-02-06 10:22:00 Test Item Value Reference Range Interpretation Comments B/C Ratio (test code = B/C Ratio) 17 6-25 [facility]2017-02-06 10:22:00 Test Item Value Reference Range Interpretation Comments AGAP (test code = AGAP) 16.8 10.0-20.0 [facility]2017-02-06 10:22:00 Test Item Value Reference Range Interpretation Comments Globulin (test code = Globulin) 3.4 2.7-4.2 [facility]2017-02-06 10:22:00 Test Item Value Reference Range Interpretation Comments A/G Ratio (test code = A/G Ratio) 0.5 0.7-1.6 [facility]2017-02-06 10:22:00 Test Item Value Reference Range Interpretation Comments Magnesium Lvl (test code = Magnesium 2.0 1.8-2.4 Lvl) [facility]2017-02-06 10:22:00 Test Item Value Reference Range Interpretation Comments Phosphorus (test code = Phosphorus) 3.7 2.5-4.5 [facility]anoKzbtsdoJOYOMZCPNR2623-08-68 10:22:00 Test Item Value Reference Range Interpretation Comments RDW (test code = RDW) 17.7 11.5-14.5 [facility]anoBmgtrhpICNFWMYHOW6792-53-22 10:22:00 Test Item Value Reference Range Interpretation Comments MCHC (test code = MCHC) 32.9 32.0-36.0 [facility]anoBdffesxFFOZFXTSMM3686-08-40 10:22:00 Test Item Value Reference Range Interpretation Comments Hct (test code = Hct) 25.4 36.0-48.0 [facility]anoUabsgceCZIMXHPNPI0776-13-87 10:22:00 Test Item Value Reference Range Interpretation Comments MCH (test code = MCH) 26.4 pg 27.0-31.0 [facility]anoTvmvzauNOZSNVVXTV7337-44-09 10:22:00 Test Item Value Reference Range Interpretation Comments MCV (test code = MCV) 80.3 80.0-98.0 [facility]anoQhifzeoXSSYJFZSUP5172-59-21 10:22:00 Test Item Value Reference Range Interpretation Comments MPV (test code = MPV) 11.4 7.4-10.4 [facility]anoKmsjuxdYIYOBPPXYK1406-67-70 10:22:00 Test Item Value Reference Range Interpretation Comments Platelet (test code = Platelet) 74 133-450 [facility]anoJsswxnhYFMNFIMRUS0009-06-16 10:22:00 Test Item Value Reference Range Interpretation Comments RBC (test code = RBC) 3.16 4.20-5.40 [facility]anoIxybxgpUNWYDQRHFL2465-14-47 10:22:00 Test Item Value Reference Range Interpretation Comments WBC (test code = WBC) 5.3 3.7-10.4 [facility]anoPhxfbnaSVLZWNGQZD3654-03-37 10:22:00 Test Item Value Reference Range Interpretation Comments Hgb (test code = Hgb) 8.4 12.0-16.0 [facility]anoBjmkxboIWPUBQDMZF1150-24-76 10:22:00 Test Item Value Reference Range Interpretation Comments Monocytes (test code = Monocytes) 14.5 2.0-12.0 [facility]anoVtsrfsdRBNCTFZIPE0809-80-90 10:22:00 Test Item Value Reference Range Interpretation Comments Lymphocytes (test code = Lymphocytes) 29.8 20.0-40.0 [facility]anoXfkdhcbYYFZWISZFZ7163-90-72 10:22:00 Test Item Value Reference Range Interpretation Comments Eosinophils # (test code 0.1 See_Comment [A utomated message] The = Eosinophils #) system whic h generated this result tra nsmitted reference range : <=0.5. The reference r leo was not used to int erpret this result as normal/abnormal . [facility]anoNixykeiBCHJBIIHVP6578-37-19 10:22:00 Test Item Value Reference Range Interpretation Comments Monocytes # (test code 0.8 See_Comment [Aut omated message] The = Monocytes #) system which generated this result tra nsmitted reference range : <=0.8. The reference r leo was not used to int erpret this result as normal/abnormal . [facility]anoIdrawhwLDEKQESEMS1718-24-30 10:22:00 Test Item Value Reference Range Interpretation Comments Segs-Bands # (test code = Segs-Bands #) 2.9 1.5-8.1 [facility]anoAomgupyCGMIJUYYGM2037-54-92 10:22:00 Test Item Value Reference Range Interpretation Comments Lymphocytes # (test code = Lymphocytes 1.6 1.0-5.5 #) [facility]anoYrilbniOAAIUWRRTU7944-94-16 10:22:00 Test Item Value Reference Range Interpretation Comments Basophils (test code = 0.4 See_Comment [Aut omated message] The Basophils) system which ge nerated this result tra nsmitted reference range : <=1.0. The reference r leo was not used to int erpret this result as normal/abnormal . [facility] PlanoZnbgkdvBTKDOSLTGC4784-77-77 10:22:00 Test Item Value Reference Range Interpretation Comments Eosinophils (test code = 1.2 See_Comment [A utomated message] The Eosinophils) system which ge nerated this result tra nsmitted reference range : <=4.0. The reference r elo was not used to int erpret this result as normal/abnormal . [facility] CenterKezynsdKMIJWWJDTJ7236-53-74 10:22:00 Test Item Value Reference Range Interpretation Comments Segs (test code = Segs) 54.1 45.0-75.0 [facility] QCOLYGUMC4567-41-27 10:22:00 Test Item Value Reference Range Interpretation Comments Hgb A1C (test code = Hgb A1C) 8.9 [facility] FFZXJZI6346-99-06 10:22:00 Test Item Value Reference Range Interpretation Comments Total CK (test code = Total CK) 190 12-191 [facility]2017-02-06 10:22:00 Test Item Value Reference Range Interpretation Comments Calcium Lvl (test code = Calcium Lvl) 7.8 8.5-10.5 [facility]2017-02-06 10:22:00 Test Item Value Reference Range Interpretation Comments CO2 (test code = CO2) 21 24-32 [facility]2017-02-06 10:22:00 Test Item Value Reference Range Interpretation Comments Sodium Lvl (test code = Sodium Lvl) 140 135-145 [facility]2017-02-06 10:22:00 Test Item Value Reference Range Interpretation Comments Potassium Lvl (test code = Potassium 3.8 3.5-5.1 Lvl) [facility]2017-02-06 10:22:00 Test Item Value Reference Range Interpretation Comments Chloride Lvl (test code = Chloride Lvl) 106 95-109 [facility]2017-02-06 10:22:00 Test Item Value Reference Range Interpretation Comments Bili Total (test code = Bili Total) 0.4 0.2-1.3 [facility]2017-02-06 10:22:00 Test Item Value Reference Range Interpretation Comments Alk Phos (test code = Alk Phos) 74 39-136 [facility]2017-02-06 10:22:00 Test Item Value Reference Range Interpretation Comments eGFR (test code = eGFR) 19 [facility]2017-02-06 10:22:00 Test Item Value Reference Range Interpretation Comments Total Protein (test code = Total 5.2 6.4-8.4 Protein) [facility]2017-02-06 10:22:00 Test Item Value Reference Range Interpretation Comments ALT (test code = ALT) 822 See_Comment [Auto mated message] The system which ge nerated this result transmit rohit reference range : <=65. The reference range was not used to interpr et this result as reji l/abnormal. [facility]2017-02-06 10:22:00 Test Item Value Reference Range Interpretation Comments AST (test code = AST) 205 See_Comment [Auto mated message] The system which ge nerated this result transmit rohit reference range : <=37. The reference range was not used to interpr et this result as reji l/abnormal. [facility]2017-02-06 10:22:00 Test Item Value Reference Range Interpretation Comments Albumin Lvl (test code = Albumin Lvl) 1.8 3.5-5.0 [facility]2017-02-06 10:22:00 Test Item Value Reference Range Interpretation Comments BUN (test code = BUN) 54 7-22 [facility]2017-02-06 10:22:00 Test Item Value Reference Range Interpretation Comments Glucose Lvl (test code = Glucose Lvl) 143 70-99 [facility]2017-02-06 10:22:00 Test Item Value Reference Range Interpretation Comments Creatinine Lvl (test code = Creatinine 3.11 0.50-1.40 Lvl) [facility]2017-02-06 10:22:00 Test Item Value Reference Range Interpretation Comments B/C Ratio (test code = B/C Ratio) 17 6-25 [facility]2017-02-06 10:22:00 Test Item Value Reference Range Interpretation Comments AGAP (test code = AGAP) 16.8 10.0-20.0 [facility]2017-02-06 10:22:00 Test Item Value Reference Range Interpretation Comments Globulin (test code = Globulin) 3.4 2.7-4.2 [facility]2017-02-06 10:22:00 Test Item Value Reference Range Interpretation Comments A/G Ratio (test code = A/G Ratio) 0.5 0.7-1.6 [facility]2017-02-06 10:22:00 Test Item Value Reference Range Interpretation Comments Magnesium Lvl (test code = Magnesium 2.0 1.8-2.4 Lvl) [facility]2017-02-06 10:22:00 Test Item Value Reference Range Interpretation Comments Phosphorus (test code = Phosphorus) 3.7 2.5-4.5 [facility]anoUjtapwsKOLQNEHEKQ3886-65-38 10:22:00 Test Item Value Reference Range Interpretation Comments RDW (test code = RDW) 17.7 11.5-14.5 [facility]anoTznuhhwLYWTICJTSP5099-12-09 10:22:00 Test Item Value Reference Range Interpretation Comments MCHC (test code = MCHC) 32.9 32.0-36.0 [facility]anoBbwxjflUSMWZHMTLD0456-25-04 10:22:00 Test Item Value Reference Range Interpretation Comments Hct (test code = Hct) 25.4 36.0-48.0 [facility]anoUbtvbklBXKWJRWLMR9609-09-68 10:22:00 Test Item Value Reference Range Interpretation Comments MCH (test code = MCH) 26.4 pg 27.0-31.0 [facility]anoFpthzsrLPCBMLDIFS0656-85-04 10:22:00 Test Item Value Reference Range Interpretation Comments MCV (test code = MCV) 80.3 80.0-98.0 [facility]anoTusyoyrICLJACWWNA3067-28-03 10:22:00 Test Item Value Reference Range Interpretation Comments MPV (test code = MPV) 11.4 7.4-10.4 [facility]anoVjeoobtDYOBDABVZU6255-27-06 10:22:00 Test Item Value Reference Range Interpretation Comments Platelet (test code = Platelet) 74 133-450 [facility]anoZfwjtnrUTGHBQSTSG9003-18-92 10:22:00 Test Item Value Reference Range Interpretation Comments RBC (test code = RBC) 3.16 4.20-5.40 [facility]anoXfjpvjiSBHRSEDXBJ7137-36-76 10:22:00 Test Item Value Reference Range Interpretation Comments WBC (test code = WBC) 5.3 3.7-10.4 [facility]anoZetlqzbNSTKREEBTG4341-44-10 10:22:00 Test Item Value Reference Range Interpretation Comments Hgb (test code = Hgb) 8.4 12.0-16.0 [facility]anoSbqfwpiUPWGMPJGVR4316-33-01 10:22:00 Test Item Value Reference Range Interpretation Comments Monocytes (test code = Monocytes) 14.5 2.0-12.0 [facility]anoNuszvqgLLTVNFKGOM3094-39-05 10:22:00 Test Item Value Reference Range Interpretation Comments Lymphocytes (test code = Lymphocytes) 29.8 20.0-40.0 [facility]anoQmvxblkVSJHZYSWXC6144-72-62 10:22:00 Test Item Value Reference Range Interpretation Comments Eosinophils # (test code 0.1 See_Comment [A utomated message] The = Eosinophils #) system whic h generated this result tra nsmitted reference range : <=0.5. The reference r leo was not used to int erpret this result as normal/abnormal . [facility]anoRcpblwkQRLKIZDGXI2261-56-68 10:22:00 Test Item Value Reference Range Interpretation Comments Monocytes # (test code 0.8 See_Comment [Aut omated message] The = Monocytes #) system which generated this result tra nsmitted reference range : <=0.8. The reference r leo was not used to int erpret this result as normal/abnormal . [facility] CenterJbnslgyMBMUPBYYLR5977-72-28 10:22:00 Test Item Value Reference Range Interpretation Comments Segs-Bands # (test code = Segs-Bands #) 2.9 1.5-8.1 [facility] CenterUiosrgdVJPQWBLIRY2710-00-99 10:22:00 Test Item Value Reference Range Interpretation Comments Lymphocytes # (test code = Lymphocytes 1.6 1.0-5.5 #) [facility]anoRegtrsfHTSIECWBOE9761-61-66 10:22:00 Test Item Value Reference Range Interpretation Comments Basophils (test code = 0.4 See_Comment [Aut omated message] The Basophils) system which ge nerated this result tra nsmitted reference range : <=1.0. The reference r leo was not used to int erpret this result as normal/abnormal . [facility]anoWwnzuzhZSCBGQYNKZ3589-19-73 10:22:00 Test Item Value Reference Range Interpretation Comments Eosinophils (test code = 1.2 See_Comment [A utomated message] The Eosinophils) system which ge nerated this result tra nsmitted reference range : <=4.0. The reference r leo was not used to int erpret this result as normal/abnormal . [facility] CenterFupminhOSXIMPRICO9388-31-85 10:22:00 Test Item Value Reference Range Interpretation Comments Segs (test code = Segs) 54.1 45.0-75.0 [facility] JHTYPMXFN6360-63-93 10:22:00 Test Item Value Reference Range Interpretation Comments Hgb A1C (test code = Hgb A1C) 8.9 [facility] JMHLVOT4596-36-75 10:22:00 Test Item Value Reference Range Interpretation Comments Total CK (test code = Total CK) 190 12-191 [facility] CenterHeap KUYXS4827-09-66 10:22:00 Test Item Value Reference Range Interpretation Comments Calcium Lvl (test code = Calcium Lvl) 7.8 8.5-10.5 [facility]2017-02-06 10:22:00 Test Item Value Reference Range Interpretation Comments CO2 (test code = CO2) 21 24-32 [facility]2017-02-06 10:22:00 Test Item Value Reference Range Interpretation Comments Sodium Lvl (test code = Sodium Lvl) 140 135-145 [facility]2017-02-06 10:22:00 Test Item Value Reference Range Interpretation Comments Potassium Lvl (test code = Potassium 3.8 3.5-5.1 Lvl) [facility]2017-02-06 10:22:00 Test Item Value Reference Range Interpretation Comments Chloride Lvl (test code = Chloride Lvl) 106 95-109 [facility]2017-02-06 10:22:00 Test Item Value Reference Range Interpretation Comments Bili Total (test code = Bili Total) 0.4 0.2-1.3 [facility]2017-02-06 10:22:00 Test Item Value Reference Range Interpretation Comments Alk Phos (test code = Alk Phos) 74 39-136 [facility]2017-02-06 10:22:00 Test Item Value Reference Range Interpretation Comments eGFR (test code = eGFR) 19 [facility]2017-02-06 10:22:00 Test Item Value Reference Range Interpretation Comments Total Protein (test code = Total 5.2 6.4-8.4 Protein) [facility]2017-02-06 10:22:00 Test Item Value Reference Range Interpretation Comments ALT (test code = ALT) 822 See_Comment [Auto mated message] The system which ge nerated this result transmit rohit reference range : <=65. The reference range was not used to interpr et this result as reji l/abnormal. [facility]2017-02-06 10:22:00 Test Item Value Reference Range Interpretation Comments AST (test code = AST) 205 See_Comment [Auto mated message] The system which ge nerated this result transmit rohit reference range : <=37. The reference range was not used to interpr et this result as reji l/abnormal. [facility]2017-02-06 10:22:00 Test Item Value Reference Range Interpretation Comments Albumin Lvl (test code = Albumin Lvl) 1.8 3.5-5.0 [place] 159637-02-06 10:22:00 Test Item Value Reference Range Interpretation Comments BUN (test code = BUN) 54 7-22 [facility]2017-02-06 10:22:00 Test Item Value Reference Range Interpretation Comments Glucose Lvl (test code = Glucose Lvl) 143 70-99 [facility]2017-02-06 10:22:00 Test Item Value Reference Range Interpretation Comments Creatinine Lvl (test code = Creatinine 3.11 0.50-1.40 Lvl) [facility]2017-02-06 10:22:00 Test Item Value Reference Range Interpretation Comments B/C Ratio (test code = B/C Ratio) 17 6-25 [facility]2017-02-06 10:22:00 Test Item Value Reference Range Interpretation Comments AGAP (test code = AGAP) 16.8 10.0-20.0 [facility]2017-02-06 10:22:00 Test Item Value Reference Range Interpretation Comments Globulin (test code = Globulin) 3.4 2.7-4.2 [facility]2017-02-06 10:22:00 Test Item Value Reference Range Interpretation Comments A/G Ratio (test code = A/G Ratio) 0.5 0.7-1.6 [facility]2017-02-06 10:22:00 Test Item Value Reference Range Interpretation Comments Magnesium Lvl (test code = Magnesium 2.0 1.8-2.4 Lvl) [facility]2017-02-06 10:22:00 Test Item Value Reference Range Interpretation Comments Phosphorus (test code = Phosphorus) 3.7 2.5-4.5 [facility]anoYbfsqiqRWSGQSZQDU8238-58-32 10:22:00 Test Item Value Reference Range Interpretation Comments RDW (test code = RDW) 17.7 11.5-14.5 [facility]anoBgirndjNAWNVKHCOC1762-00-93 10:22:00 Test Item Value Reference Range Interpretation Comments MCHC (test code = MCHC) 32.9 32.0-36.0 [facility]anoKtotayrKLBPDKBIWA3041-47-53 10:22:00 Test Item Value Reference Range Interpretation Comments Hct (test code = Hct) 25.4 36.0-48.0 [facility]anoQiqwkzrUZNBGFDWFG8628-74-33 10:22:00 Test Item Value Reference Range Interpretation Comments MCH (test code = MCH) 26.4 pg 27.0-31.0 [facility]anoRrzmeedPIGXMAVGBW1600-75-54 10:22:00 Test Item Value Reference Range Interpretation Comments MCV (test code = MCV) 80.3 80.0-98.0 [facility]anoGdicyuiMCJYJICKSB9002-88-93 10:22:00 Test Item Value Reference Range Interpretation Comments MPV (test code = MPV) 11.4 7.4-10.4 [facility]anoLlkjbpdBGQCHMPIWB3088-90-59 10:22:00 Test Item Value Reference Range Interpretation Comments Platelet (test code = Platelet) 74 133-450 [facility]anoGsohdqpJQTYJFKKDC4538-72-32 10:22:00 Test Item Value Reference Range Interpretation Comments RBC (test code = RBC) 3.16 4.20-5.40 [facility]anoWachqakNTXZUWPGUG5459-97-80 10:22:00 Test Item Value Reference Range Interpretation Comments WBC (test code = WBC) 5.3 3.7-10.4 [facility]anoPkxjodeYNRIFAHQZH2476-74-59 10:22:00 Test Item Value Reference Range Interpretation Comments Hgb (test code = Hgb) 8.4 12.0-16.0 [facility]anoFlcqsmsBZZVXCGXED1087-00-86 10:22:00 Test Item Value Reference Range Interpretation Comments Monocytes (test code = Monocytes) 14.5 2.0-12.0 [facility]anoNqbldjbKABZUXBEQS2446-53-49 10:22:00 Test Item Value Reference Range Interpretation Comments Lymphocytes (test code = Lymphocytes) 29.8 20.0-40.0 [facility]anoHjnpyzrYEESDFMRBA5316-82-12 10:22:00 Test Item Value Reference Range Interpretation Comments Eosinophils # (test code 0.1 See_Comment [A utomated message] The = Eosinophils #) system whic h generated this result tra nsmitted reference range : <=0.5. The reference r leo was not used to int erpret this result as normal/abnormal . [facility]anoZpmfyyeSBBZSUNMAE4938-54-51 10:22:00 Test Item Value Reference Range Interpretation Comments Monocytes # (test code 0.8 See_Comment [Aut omated message] The = Monocytes #) system which generated this result tra nsmitted reference range : <=0.8. The reference r leo was not used to int erpret this result as normal/abnormal . [facility]VmvncorRYYHDXBGVP8761-02-74 10:22:00 Test Item Value Reference Range Interpretation Comments Segs-Bands # (test code = Segs-Bands #) 2.9 1.5-8.1 [facility] CenterQlyxtiyAXDZKJHYHG5000-37-55 10:22:00 Test Item Value Reference Range Interpretation Comments Lymphocytes # (test code = Lymphocytes 1.6 1.0-5.5 #) [facility] CenterAwyboudFUOBOALHAE7878-41-86 10:22:00 Test Item Value Reference Range Interpretation Comments Basophils (test code = 0.4 See_Comment [Aut omated message] The Basophils) system which ge nerated this result tra nsmitted reference range : <=1.0. The reference r leo was not used to int erpret this result as normal/abnormal . [facility]anoWhooopoUTRIDHDNRL3021-95-66 10:22:00 Test Item Value Reference Range Interpretation Comments Eosinophils (test code = 1.2 See_Comment [A utomated message] The Eosinophils) system which ge nerated this result tra nsmitted reference range : <=4.0. The reference r leo was not used to int erpret this result as normal/abnormal . [facility] CenterTcmpkmrJHCISWOGKQ2176-03-62 10:22:00 Test Item Value Reference Range Interpretation Comments Segs (test code = Segs) 54.1 45.0-75.0 [facility] CenterSPECIAL URKOYICDY9467-91-86 10:22:00 Test Item Value Reference Range Interpretation Comments Hgb A1C (test code = Hgb A1C) 8.9 [facility] CenterCARDIAC LWMMZCQ8955-63-38 10:22:00 Test Item Value Reference Range Interpretation Comments Total CK (test code = Total CK) 190 12-191 [facility] CenterCHEM KHXKX4145-60-29 10:22:00 Test Item Value Reference Range Interpretation Comments Calcium Lvl (test code = Calcium Lvl) 7.8 8.5-10.5 [facility] CenterCHEM JUKAJ1501-86-10 10:22:00 Test Item Value Reference Range Interpretation Comments CO2 (test code = CO2) 21 24-32 [facility] CenterCHEM XUTNE1619-48-74 10:22:00 Test Item Value Reference Range Interpretation Comments Sodium Lvl (test code = Sodium Lvl) 140 135-145 [facility]2017-02-06 10:22:00 Test Item Value Reference Range Interpretation Comments Potassium Lvl (test code = Potassium 3.8 3.5-5.1 Lvl) [facility]2017-02-06 10:22:00 Test Item Value Reference Range Interpretation Comments Chloride Lvl (test code = Chloride Lvl) 106 95-109 [facility]2017-02-06 10:22:00 Test Item Value Reference Range Interpretation Comments Bili Total (test code = Bili Total) 0.4 0.2-1.3 [facility]2017-02-06 10:22:00 Test Item Value Reference Range Interpretation Comments Alk Phos (test code = Alk Phos) 74 39-136 [facility]2017-02-06 10:22:00 Test Item Value Reference Range Interpretation Comments eGFR (test code = eGFR) 19 [facility]2017-02-06 10:22:00 Test Item Value Reference Range Interpretation Comments Total Protein (test code = Total 5.2 6.4-8.4 Protein) [facility]2017-02-06 10:22:00 Test Item Value Reference Range Interpretation Comments ALT (test code = ALT) 822 See_Comment [Auto mated message] The system which ge nerated this result transmit rohit reference range : <=65. The reference range was not used to interpr et this result as reji l/abnormal. [facility]2017-02-06 10:22:00 Test Item Value Reference Range Interpretation Comments AST (test code = AST) 205 See_Comment [Auto mated message] The system which ge nerated this result transmit rohit reference range : <=37. The reference range was not used to interpr et this result as reji l/abnormal. [facility]2017-02-06 10:22:00 Test Item Value Reference Range Interpretation Comments Albumin Lvl (test code = Albumin Lvl) 1.8 3.5-5.0 [facility]2017-02-06 10:22:00 Test Item Value Reference Range Interpretation Comments BUN (test code = BUN) 54 7-22 [facility]2017-02-06 10:22:00 Test Item Value Reference Range Interpretation Comments Glucose Lvl (test code = Glucose Lvl) 143 70-99 [facility]2017-02-06 10:22:00 Test Item Value Reference Range Interpretation Comments Creatinine Lvl (test code = Creatinine 3.11 0.50-1.40 Lvl) [facility]2017-02-06 10:22:00 Test Item Value Reference Range Interpretation Comments B/C Ratio (test code = B/C Ratio) 17 6-25 [facility]2017-02-06 10:22:00 Test Item Value Reference Range Interpretation Comments AGAP (test code = AGAP) 16.8 10.0-20.0 [facility]2017-02-06 10:22:00 Test Item Value Reference Range Interpretation Comments Globulin (test code = Globulin) 3.4 2.7-4.2 [facility]2017-02-06 10:22:00 Test Item Value Reference Range Interpretation Comments A/G Ratio (test code = A/G Ratio) 0.5 0.7-1.6 [facility]2017-02-06 10:22:00 Test Item Value Reference Range Interpretation Comments Magnesium Lvl (test code = Magnesium 2.0 1.8-2.4 Lvl) [facility]2017-02-06 10:22:00 Test Item Value Reference Range Interpretation Comments Phosphorus (test code = Phosphorus) 3.7 2.5-4.5 [facility]anoXistdvjVRGAJDCCWC1378-44-75 10:22:00 Test Item Value Reference Range Interpretation Comments RDW (test code = RDW) 17.7 11.5-14.5 [facility]anoTiazhirVJJUABSBFW6114-38-36 10:22:00 Test Item Value Reference Range Interpretation Comments MCHC (test code = MCHC) 32.9 32.0-36.0 [facility]anoDuzdfchMSZNAODLNN0222-14-99 10:22:00 Test Item Value Reference Range Interpretation Comments Hct (test code = Hct) 25.4 36.0-48.0 [facility]anoKicxtvjRZVTUCCWEF7728-71-02 10:22:00 Test Item Value Reference Range Interpretation Comments MCH (test code = MCH) 26.4 pg 27.0-31.0 [facility]anoWwsuazxXMMDAZMTTH1802-36-73 10:22:00 Test Item Value Reference Range Interpretation Comments MCV (test code = MCV) 80.3 80.0-98.0 [facility]anoIjfjwwmXVBOXJWEOE8291-88-98 10:22:00 Test Item Value Reference Range Interpretation Comments MPV (test code = MPV) 11.4 7.4-10.4 [facility]anoXjxpzasWCKMUCRHGO1462-32-72 10:22:00 Test Item Value Reference Range Interpretation Comments Platelet (test code = Platelet) 74 133-450 [facility]anoTwvdyjjMKYAHXHCXF5411-09-42 10:22:00 Test Item Value Reference Range Interpretation Comments RBC (test code = RBC) 3.16 4.20-5.40 [facility]anoVslarbyBKQEWDXGSR2789-24-11 10:22:00 Test Item Value Reference Range Interpretation Comments WBC (test code = WBC) 5.3 3.7-10.4 [facility]anoHjcsyrhTKTSJHQSYM9084-68-78 10:22:00 Test Item Value Reference Range Interpretation Comments Hgb (test code = Hgb) 8.4 12.0-16.0 [facility]anoOrwoihwKEUFUDQBNX9533-07-72 10:22:00 Test Item Value Reference Range Interpretation Comments Monocytes (test code = Monocytes) 14.5 2.0-12.0 [facility]anoVahpphdJBKVRKXNHV6094-29-69 10:22:00 Test Item Value Reference Range Interpretation Comments Lymphocytes (test code = Lymphocytes) 29.8 20.0-40.0 [facility]anoHyhtingKMCUOKXODP6650-55-80 10:22:00 Test Item Value Reference Range Interpretation Comments Eosinophils # (test code 0.1 See_Comment [A utomated message] The = Eosinophils #) system whic h generated this result tra nsmitted reference range : <=0.5. The reference r leo was not used to int erpret this result as normal/abnormal . [facility]anoEsvbtswAZIWPOPETT3704-59-36 10:22:00 Test Item Value Reference Range Interpretation Comments Monocytes # (test code 0.8 See_Comment [Aut omated message] The = Monocytes #) system which generated this result tra nsmitted reference range : <=0.8. The reference r leo was not used to int erpret this result as normal/abnormal . [facility]anoPnslisyDHYRRYZDQR5800-25-11 10:22:00 Test Item Value Reference Range Interpretation Comments Segs-Bands # (test code = Segs-Bands #) 2.9 1.5-8.1 [place] [id number] 10:22:00 Test Item Value Reference Range Interpretation Comments Lymphocytes # (test code = Lymphocytes 1.6 1.0-5.5 #) [facility] CenterHyvodfzAPRGQOEBAT6670-79-22 10:22:00 Test Item Value Reference Range Interpretation Comments Basophils (test code = 0.4 See_Comment [Aut omated message] The Basophils) system which ge nerated this result tra nsmitted reference range : <=1.0. The reference r leo was not used to int erpret this result as normal/abnormal . [facility]anoAqfsmmnXYTGEOATSD5329-39-73 10:22:00 Test Item Value Reference Range Interpretation Comments Eosinophils (test code = 1.2 See_Comment [A utomated message] The Eosinophils) system which ge nerated this result tra nsmitted reference range : <=4.0. The reference r leo was not used to int erpret this result as normal/abnormal . [facility] CenterNdcfmlgZIFCDQBTOQ7262-37-00 10:22:00 Test Item Value Reference Range Interpretation Comments Segs (test code = Segs) 54.1 45.0-75.0 [facility]SPECIAL COPHXQMAQ0564-75-09 10:22:00 Test Item Value Reference Range Interpretation Comments Hgb A1C (test code = Hgb A1C) 8.9 [facility] CenterCARDIAC KZWAIZT6668-68-06 17:40:00 Test Item Value Reference Range Interpretation Comments Total CK (test code = Total CK) 344 12-191 [facility] CenterKjbmfxnODWECMTTRJ7663-19-99 17:40:00 Test Item Value Reference Range Interpretation Comments IVETTE (test code = IVETTE) Positive *ABN*(07/26/16 11:40 AM) [facility] CenterWfvzsucZFIXXHEUBU6512-51-23 17:40:00 Test Item Value Reference Range Interpretation Comments PATIENT ATTENDANT Ab (test code = PATIENT ATTENDANT Ab) no gt [facility]icsJvxdaqeWQGKEUFDIX3205-50-79 17:40:00 Test Item Value Reference Range Interpretation Comments Sm Ab (test code = Sm Ab) no gt [facility]icsLiolzqsROREBBDVDN8924-77-80 17:40:00 Test Item Value Reference Range Interpretation Comments IVETTE Interp (test code Pattern appears = IVETTE Interp) Nucleolar. [facility]icsSlzkqzsWRSJZQLPWK9390-64-84 17:40:00 Test Item Value Reference Range Interpretation Comments SS-B (La) Ab (test code = SS-B (La) Ab) no gt [facility] VwtjvpvQNBSPOFCEM7149-70-00 17:40:00 Test Item Value Reference Range Interpretation Comments SS-A (Ro) Ab (test code = SS-A (Ro) Ab) no gt [facility] MvuruhtEKVZGAVVWY6501-93-94 17:40:00 Test Item Value Reference Range Interpretation Comments DNA Ab (DS) (test Negative (07/26/16 11:40 code = DNA Ab (DS)) AM) [facility] AcbpksdRXDCVVXGAQ2307-01-78 17:40:00 Test Item Value Reference Range Interpretation Comments IVETTE Titer (test code = 1:40 *ABN*(07/26/16 IVETTE Titer) 11:40 AM) [facility]icsannURINE MWJY5014-89-61 17:40:00 Test Item Value Reference Range Interpretation Comments U Sodium (test code = U Sodium) 21 [facility]icsannCARDIAC QSKYOIS8246-85-28 17:40:00 Test Item Value Reference Range Interpretation Comments Total CK (test code = Total CK) 344 12-191 [facility]icsOddhblfXIRCJYUQKC1556-14-41 17:40:00 Test Item Value Reference Range Interpretation Comments IVETTE (test code = IEVTTE) Positive *ABN*(07/26/16 11:40 AM) [facility]icsZpzhgtbTSIJRWHBIW5742-45-38 17:40:00 Test Item Value Reference Range Interpretation Comments PATIENT ATTENDANT Ab (test code = PATIENT ATTENDANT Ab) no [facility]yhuugsDFHINFJEXT4321-03-08 17:40:00 Test Item Value Reference Range Interpretation Comments Sm Ab (test code = Sm Ab) no [facility] MhlqfynBNTWHSMITX8275-68-77 17:40:00 Test Item Value Reference Range Interpretation Comments IVETTE Interp (test code Pattern appears = IVETTE Interp) Nucleolar. [facility]icsOanuchyTGLJMBCOGT6232-45-42 17:40:00 Test Item Value Reference Range Interpretation Comments SS-B (La) Ab (test code = SS-B (La) Ab) no [facility] SoydwzhALSREZMADK5200-90-63 17:40:00 Test Item Value Reference Range Interpretation Comments SS-A (Ro) Ab (test code = SS-A (Ro) Ab) no [facility] LxnxmawLRROJYYGZB2912-90-56 17:40:00 Test Item Value Reference Range Interpretation Comments DNA Ab (DS) (test Negative (07/26/16 11:40 code = DNA Ab (DS)) AM) [facility]icsQjzidtnDVMQYXFEQT5565-79-69 17:40:00 Test Item Value Reference Range Interpretation Comments IVETTE Titer (test code = 1:40 *ABN*(07/26/16 IVETTE Titer) 11:40 AM) [facility] VVTO7952-04-01 17:40:00 Test Item Value Reference Range Interpretation Comments U Sodium (test code = U Sodium) 21 [facility]icsannCARDIAC JVBADRM7857-68-06 17:40:00 Test Item Value Reference Range Interpretation Comments Total CK (test code = Total CK) 344 12-191 [facility] ClinicsCuhytugLPJNUBBFVC1363-79-88 17:40:00 Test Item Value Reference Range Interpretation Comments IVETTE (test code = IVETTE) Positive *ABN*(07/26/16 11:40 AM) [facility]icsEggaqbwMHZRCBAOTK8497-96-33 17:40:00 Test Item Value Reference Range Interpretation Comments PATIENT ATTENDANT Ab (test code = PATIENT ATTENDANT Ab) no gt [facility]icsQvowoceQQTTRMTVSR2575-51-73 17:40:00 Test Item Value Reference Range Interpretation Comments Sm Ab (test code = Sm Ab) no gt [facility] RcfuorjAMRECGJIAF6254-02-10 17:40:00 Test Item Value Reference Range Interpretation Comments IVETTE Interp (test code Pattern appears = IVETTE Interp) Nucleolar. [facility]icsGusuvqpOGEBKYMZWC8849-78-98 17:40:00 Test Item Value Reference Range Interpretation Comments SS-B (La) Ab (test code = SS-B (La) Ab) no gt [facility]icsKsbsrguVHWOPWIACE2397-80-21 17:40:00 Test Item Value Reference Range Interpretation Comments SS-A (Ro) Ab (test code = SS-A (Ro) Ab) no gt [facility] OcwiwkeGFSNVAHMTG9903-31-13 17:40:00 Test Item Value Reference Range Interpretation Comments DNA Ab (DS) (test Negative (07/26/16 11:40 code = DNA Ab (DS)) AM) [facility]icsBgzpfheFUCMUYIONZ7300-32-57 17:40:00 Test Item Value Reference Range Interpretation Comments IVETTE Titer (test code = 1:40 *ABN*(07/26/16 IVETTE Titer) 11:40 AM) [facility] [id number] 17:40:00 Test Item Value Reference Range Interpretation Comments U Sodium (test code = U Sodium) 21 [facility] AOUVHVT6128-02-93 17:40:00 Test Item Value Reference Range Interpretation Comments Total CK (test code = Total CK) 344 [facility] AnqcnxdQYPYVJVFFI1024-24-02 17:40:00 Test Item Value Reference Range Interpretation Comments IVETTE (test code = IVETTE) Positive *ABN*(07/26/16 11:40 AM) [facility] VrhyatoREUIFGXEHA0703-86-95 17:40:00 Test Item Value Reference Range Interpretation Comments PATIENT ATTENDANT Ab (test code = PATIENT ATTENDANT Ab) no gt [facility] PiovllgBPGYURAZDS9550-43-47 17:40:00 Test Item Value Reference Range Interpretation Comments Sm Ab (test code = Sm Ab) no gt [facility] EqgjggeFKKBZTETRE2043-51-98 17:40:00 Test Item Value Reference Range Interpretation Comments IVETTE Interp (test code Pattern appears = IVETTE Interp) Nucleolar. [facility] XaswddwDRPUOKDPZS3757-90-68 17:40:00 Test Item Value Reference Range Interpretation Comments SS-B (La) Ab (test code = SS-B (La) Ab) no gt [facility] RxfbwuoNQSYVCADES8599-23-17 17:40:00 Test Item Value Reference Range Interpretation Comments SS-A (Ro) Ab (test code = SS-A (Ro) Ab) no gt [facility] WonpesaSBGSFQDXML6139-29-42 17:40:00 Test Item Value Reference Range Interpretation Comments DNA Ab (DS) (test Negative (07/26/16 11:40 code = DNA Ab (DS)) AM) [facility] ChrfmprVMMFHKFHJL9110-31-32 17:40:00 Test Item Value Reference Range Interpretation Comments IVETTE Titer (test code = 1:40 *ABN*(07/26/16 IVETTE Titer) 11:40 AM) [facility]icsannURINE QSAE7669-93-65 17:40:00 Test Item Value Reference Range Interpretation Comments U Sodium (test code = U Sodium) 21 [facility]icsannCARDIAC AJBKAZD3255-74-19 17:40:00 Test Item Value Reference Range Interpretation Comments Total CK (test code = Total CK) 344 12191 [facility] ClinicsLktodutVVFRYOZYUS6964-58-38 17:40:00 Test Item Value Reference Range Interpretation Comments IVETTE (test code = IVETTE) Positive *ABN*(07/26/16 11:40 AM) [facility] ApwiodaTJEURRAUYH5678-81-23 17:40:00 Test Item Value Reference Range Interpretation Comments PATIENT ATTENDANT Ab (test code = PATIENT ATTENDANT Ab) no gt [facility] PuicmqbFLLNDIRIDF7074-17-09 17:40:00 Test Item Value Reference Range Interpretation Comments Sm Ab (test code = Sm Ab) no gt [facility] JoolsxdYOBZAQGZHJ2012-00-84 17:40:00 Test Item Value Reference Range Interpretation Comments IVETTE Interp (test code Pattern appears = IVETTE Interp) Nucleolar. [facility] XwlwiuhZGGTGXFWXL1882-03-90 17:40:00 Test Item Value Reference Range Interpretation Comments SS-B (La) Ab (test code = SS-B (La) Ab) no gt [facility] QqdzumoZHLNTUVWKK4909-63-50 17:40:00 Test Item Value Reference Range Interpretation Comments SS-A (Ro) Ab (test code = SS-A (Ro) Ab) no gt [facility] SxbwenrPRKZZJGVWN9232-99-49 17:40:00 Test Item Value Reference Range Interpretation Comments DNA Ab (DS) (test Negative (07/26/16 11:40 code = DNA Ab (DS)) AM) [facility]icsTyybntzHJXFSYPLIA5800-13-79 17:40:00 Test Item Value Reference Range Interpretation Comments IVETTE Titer (test code = 1:40 *ABN*(07/26/16 IVETTE Titer) 11:40 AM) [facility] SOZA8389-43-10 17:40:00 Test Item Value Reference Range Interpretation Comments U Sodium (test code = U Sodium) 21 [facility]icsGhbleveESFBGRINFI0138-36-00 14:00:00 Test Item Value Reference Range Interpretation Comments INR (test code = INR) 1.11 0.85-1.17 [facility]icsNdmbhpdDAFDFZDPXD1227-29-37 14:00:00 Test Item Value Reference Range Interpretation Comments PT (test code = PT) 14.5 s 12.0-14.7 [facility] ClinicsZvfwxbwNZJHGTUCIA9325-75-19 14:00:00 Test Item Value Reference Range Interpretation Comments Hep A IgM (test code Negative *NA*(07/26/16 = Hep A IgM) 8:00 AM) [facility]icsWvncbaqQJYQAUSEXD7394-18-60 14:00:00 Test Item Value Reference Range Interpretation Comments Hep B Core IgM (test Negative *NA*(07/26/16 code = Hep B Core 8:00 AM) IgM) [facility]XamjelsDVSZXBGOGQ6023-71-73 14:00:00 Test Item Value Reference Range Interpretation Comments Hep C Ab (test code = Negative *NA*(07/26/16 Hep C Ab) 8:00 AM) [facility] CenterJbtxzqmTUKXRWRPKV6918-06-12 14:00:00 Test Item Value Reference Range Interpretation Comments Hep Bs Ag (test code Negative *NA*(07/26/16 = Hep Bs Ag) 8:00 AM) [facility]StztkzbFAKGKOLCAI1350-25-78 14:00:00 Test Item Value Reference Range Interpretation Comments INR (test code = INR) 1.11 0.85-1.17 [facility]anoYaydyxxJNHZZGBZBV4763-89-90 14:00:00 Test Item Value Reference Range Interpretation Comments PT (test code = PT) 14.5 s 12.0-14.7 [facility] CenterPrrtqhvKRFYMOFAOW1572-77-81 14:00:00 Test Item Value Reference Range Interpretation Comments Hep A IgM (test code Negative *NA*(07/26/16 = Hep A IgM) 8:00 AM) [facility] CenterJzslmqhTNLPZGMAVW9117-52-66 14:00:00 Test Item Value Reference Range Interpretation Comments Hep B Core IgM (test Negative *NA*(07/26/16 code = Hep B Core 8:00 AM) IgM) [facility] CenterKpvywkzXBNPKLEGKQ2487-14-89 14:00:00 Test Item Value Reference Range Interpretation Comments Hep C Ab (test code = Negative *NA*(07/26/16 Hep C Ab) 8:00 AM) [facility] CenterAmmrlutVDTFSQSTYA8181-86-43 14:00:00 Test Item Value Reference Range Interpretation Comments Hep Bs Ag (test code Negative *NA*(07/26/16 = Hep Bs Ag) 8:00 AM) [facility]anoSmsyfieZZVMFLRFVO2208-75-89 14:00:00 Test Item Value Reference Range Interpretation Comments INR (test code = INR) 1.11 0.85-1.17 [facility]anoPmhuejnVLYCNYEXQK2299-24-12 14:00:00 Test Item Value Reference Range Interpretation Comments PT (test code = PT) 14.5 s 12.0-14.7 [facility] CenterIetegewRFNCNQMJWW7678-47-68 14:00:00 Test Item Value Reference Range Interpretation Comments Hep A IgM (test code Negative *NA*(07/26/16 = Hep A IgM) 8:00 AM) [facility] CenterQxuazkcGXXCDXXAPD8908-27-56 14:00:00 Test Item Value Reference Range Interpretation Comments Hep B Core IgM (test Negative *NA*(07/26/16 code = Hep B Core 8:00 AM) IgM) [facility] CenterOexyqmsXKEDHPPLOW2424-62-07 14:00:00 Test Item Value Reference Range Interpretation Comments Hep C Ab (test code = Negative *NA*(07/26/16 Hep C Ab) 8:00 AM) [facility] CenterOgbxaxhFLYCWRGMYQ2694-94-76 14:00:00 Test Item Value Reference Range Interpretation Comments Hep Bs Ag (test code Negative *NA*(07/26/16 = Hep Bs Ag) 8:00 AM) [facility]anoFuofqcdTTXSWMWJEG7667-84-15 14:00:00 Test Item Value Reference Range Interpretation Comments INR (test code = INR) 1.11 0.85-1.17 [facility]anoQmnzpgaYZALWPZOKZ4442-29-85 14:00:00 Test Item Value Reference Range Interpretation Comments PT (test code = PT) 14.5 s 12.0-14.7 [facility] CenterMwpygmlDSSZQSHCJY3940-44-97 14:00:00 Test Item Value Reference Range Interpretation Comments Hep A IgM (test code Negative *NA*(07/26/16 = Hep A IgM) 8:00 AM) [facility]dmHZLRNIARLT2467[facility]15-11 14:00:00 Test Item Value Reference Range Interpretation Comments Hep B Core IgM (test Negative *NA*(07/26/16 code = Hep B Core 8:00 AM) IgM) [facility] CenterNomsvzcVSWZBETMXQ7853-35-03 14:00:00 Test Item Value Reference Range Interpretation Comments Hep C Ab (test code = Negative *NA*(07/26/16 Hep C Ab) 8:00 AM) [facility]UvgsxgaZKDTICKHPN3638-15-45 14:00:00 Test Item Value Reference Range Interpretation Comments Hep Bs Ag (test code Negative *NA*(07/26/16 = Hep Bs Ag) 8:00 AM) [facility]FldfjfiNBNXAOANZF7196-89-46 14:00:00 Test Item Value Reference Range Interpretation Comments INR (test code = INR) 1.11 0.85-1.17 [facility]OcbgoqgHHGXVMRCXK4603-25-89 14:00:00 Test Item Value Reference Range Interpretation Comments PT (test code = PT) 14.5 s 12.0-14.7 [facility]GgzeipcNUUJFPWZRX5307-66-27 14:00:00 Test Item Value Reference Range Interpretation Comments Hep A IgM (test code Negative *NA*(07/26/16 = Hep A IgM) 8:00 AM) [facility] CenterUxptathECBSDSHQDD0412-11-03 14:00:00 Test Item Value Reference Range Interpretation Comments Hep B Core IgM (test Negative *NA*(07/26/16 code = Hep B Core 8:00 AM) IgM) [facility] CenterEmurdqnCTFHFJVKTR4199-03-01 14:00:00 Test Item Value Reference Range Interpretation Comments Hep C Ab (test code = Negative *NA*(07/26/16 Hep C Ab) 8:00 AM) [facility] CenterOyycriyYPSIWZQSTP5371-21-49 14:00:00 Test Item Value Reference Range Interpretation Comments Hep Bs Ag (test code Negative *NA*(07/26/16 = Hep Bs Ag) 8:00 AM) [facility]2017-02-05 10:42:00 Test Item Value Reference Range Interpretation Comments B/C Ratio (test code = B/C Ratio) 17 6-25 [facility]2017-02-05 10:42:00 Test Item Value Reference Range Interpretation Comments ALT (test code = ALT) 1232 See_Comment [Auto mated message] The system which ge nerated this result transmit rohit reference range : <=65. The reference range was not used to interpr et this result as reji l/abnormal. [facility]2017-02-05 10:42:00 Test Item Value Reference Range Interpretation Comments A/G Ratio (test code = A/G Ratio) 0.5 0.7-1.6 [facility]2017-02-05 10:42:00 Test Item Value Reference Range Interpretation Comments Bili Total (test code = Bili Total) 0.3 0.2-1.3 [facility]2017-02-05 10:42:00 Test Item Value Reference Range Interpretation Comments Alk Phos (test code = Alk Phos) 79 39-136 [facility]2017-02-05 10:42:00 Test Item Value Reference Range Interpretation Comments AST (test code = AST) 586 See_Comment [Auto mated message] The system which ge nerated this result transmit rohit reference range : <=37. The reference range was not used to interpr et this result as reji l/abnormal. [facility]2017-02-05 10:42:00 Test Item Value Reference Range Interpretation Comments Total Protein (test code = Total 5.5 6.4-8.4 Protein) [facility]2017-02-05 10:42:00 Test Item Value Reference Range Interpretation Comments Globulin (test code = Globulin) 3.7 2.7-4.2 [facility]2017-02-05 10:42:00 Test Item Value Reference Range Interpretation Comments Albumin Lvl (test code = Albumin Lvl) 1.8 3.5-5.0 [facility]2017-02-05 10:42:00 Test Item Value Reference Range Interpretation Comments Magnesium Lvl (test code = Magnesium 2.1 1.8-2.4 Lvl) [facility]FfvfgmmOIMSFPWPKR7662-64-47 10:42:00 Test Item Value Reference Range Interpretation Comments Acanthocyte (test code = Acanthocyte) [facility]anoSouwwhvRBCYUVUWKE5819-68-36 10:42:00 Test Item Value Reference Range Interpretation Comments Rouleaux (test code = Present *ABN*(07/26/16 Rouleaux) 4:42 AM) [facility]anoUhfvvxtPGADPVLMQN9449-29-94 10:42:00 Test Item Value Reference Range Interpretation Comments Anisocyte (test code = 1+ *ABN*(07/26/16 4:42 Anisocyte) AM) [facility]anoEvyiprbLOVABIFCTV1842-24-91 10:42:00 Test Item Value Reference Range Interpretation Comments Basophils # (test code 0.1 See_Comment [Aut omated message] The = Basophils #) system which generated this result tra nsmitted reference range : <=0.2. The reference r leo was not used to int erpret this result as normal/abnormal . [facility]anoYefsjmqQWONLHWWWT0768-81-76 10:42:00 Test Item Value Reference Range Interpretation Comments Large Plt (test code Moderate *ABN*(07/26/16 = Large Plt) 4:42 AM) [facility] CenterHgczgfgWFJNNBHHVW6761-20-31 10:42:00 Test Item Value Reference Range Interpretation Comments C4 Complement (test code = C4 42 16-47 Complement) [facility]2017-02-05 10:42:00 Test Item Value Reference Range Interpretation Comments B/C Ratio (test code = B/C Ratio) 17 6-25 [facility]2017-02-05 10:42:00 Test Item Value Reference Range Interpretation Comments ALT (test code = ALT) 1232 See_Comment [Auto mated message] The system which ge nerated this result transmit rohit reference range : <=65. The reference range was not used to interpr et this result as reji l/abnormal. [facility]2017-02-05 10:42:00 Test Item Value Reference Range Interpretation Comments A/G Ratio (test code = A/G Ratio) 0.5 0.7-1.6 [facility]2017-02-05 10:42:00 Test Item Value Reference Range Interpretation Comments Bili Total (test code = Bili Total) 0.3 0.2-1.3 [facility]2017-02-05 10:42:00 Test Item Value Reference Range Interpretation Comments Alk Phos (test code = Alk Phos) 79 39-136 [facility]2017-02-05 10:42:00 Test Item Value Reference Range Interpretation Comments AST (test code = AST) 586 See_Comment [Auto mated message] The system which ge nerated this result transmit rohit reference range : <=37. The reference range was not used to interpr et this result as rjei l/abnormal. [facility]2017-02-05 10:42:00 Test Item Value Reference Range Interpretation Comments Total Protein (test code = Total 5.5 6.4-8.4 Protein) [facility]2017-02-05 10:42:00 Test Item Value Reference Range Interpretation Comments Globulin (test code = Globulin) 3.7 2.7-4.2 [facility]2017-02-05 10:42:00 Test Item Value Reference Range Interpretation Comments Albumin Lvl (test code = Albumin Lvl) 1.8 3.5-5.0 [facility]2017-02-05 10:42:00 Test Item Value Reference Range Interpretation Comments Magnesium Lvl (test code = Magnesium 2.1 1.8-2.4 Lvl) [facility]anoYujcwnxCMBLFZJYQC6419-57-05 10:42:00 Test Item Value Reference Range Interpretation Comments Acanthocyte (test code = Acanthocyte) [facility]anoDeipuuzYJPPGJYREE1718-57-20 10:42:00 Test Item Value Reference Range Interpretation Comments Rouleaux (test code = Present *ABN*(07/26/16 Rouleaux) 4:42 AM) [facility]anoRysnjozGYLHYTDDWL0908-63-79 10:42:00 Test Item Value Reference Range Interpretation Comments Anisocyte (test code = 1+ *ABN*(07/26/16 4:42 Anisocyte) AM) [facility]anoUiwplddRXFQDWDQUQ9194-05-43 10:42:00 Test Item Value Reference Range Interpretation Comments Basophils # (test code 0.1 See_Comment [Aut omated message] The = Basophils #) system which generated this result tra nsmitted reference range : <=0.2. The reference r elo was not used to int erpret this result as normal/abnormal . [facility]anoIwvqrzcVQNFJKJFPL5058-69-42 10:42:00 Test Item Value Reference Range Interpretation Comments Large Plt (test code Moderate *ABN*(07/26/16 = Large Plt) 4:42 AM) [facility] CenterDtieymgLAEIJQVKFI5136-07-79 10:42:00 Test Item Value Reference Range Interpretation Comments C4 Complement (test code = C4 42 16-47 Complement) [facility]2017-02-05 10:42:00 Test Item Value Reference Range Interpretation Comments B/C Ratio (test code = B/C Ratio) 17 6-25 [facility]2017-02-05 10:42:00 Test Item Value Reference Range Interpretation Comments ALT (test code = ALT) 1232 See_Comment [Auto mated message] The system which ge nerated this result transmit rohit reference range : <=65. The reference range was not used to interpr et this result as reji l/abnormal. [facility]2017-02-05 10:42:00 Test Item Value Reference Range Interpretation Comments A/G Ratio (test code = A/G Ratio) 0.5 0.7-1.6 [facility]2017-02-05 10:42:00 Test Item Value Reference Range Interpretation Comments Bili Total (test code = Bili Total) 0.3 0.2-1.3 [facility]2017-02-05 10:42:00 Test Item Value Reference Range Interpretation Comments Alk Phos (test code = Alk Phos) 79 39-136 [facility]2017-02-05 10:42:00 Test Item Value Reference Range Interpretation Comments AST (test code = AST) 586 See_Comment [Auto mated message] The system which ge nerated this result transmit rohit reference range : <=37. The reference range was not used to interpr et this result as reji l/abnormal. [facility]2017-02-05 10:42:00 Test Item Value Reference Range Interpretation Comments Total Protein (test code = Total 5.5 6.4-8.4 Protein) [facility]2017-02-05 10:42:00 Test Item Value Reference Range Interpretation Comments Globulin (test code = Globulin) 3.7 2.7-4.2 [facility]2017-02-05 10:42:00 Test Item Value Reference Range Interpretation Comments Albumin Lvl (test code = Albumin Lvl) 1.8 3.5-5.0 [facility]2017-02-05 10:42:00 Test Item Value Reference Range Interpretation Comments Magnesium Lvl (test code = Magnesium 2.1 1.8-2.4 Lvl) [facility]anoGvxdwudRVEIRGULPA5827-33-17 10:42:00 Test Item Value Reference Range Interpretation Comments Acanthocyte (test code = Acanthocyte) [facility]anoIujsneiTIZVJPZIIO9112-41-74 10:42:00 Test Item Value Reference Range Interpretation Comments Rouleaux (test code = Present *ABN*(07/26/16 Rouleaux) 4:42 AM) [facility]VykgfbkETUPRFDQMM8126-11-12 10:42:00 Test Item Value Reference Range Interpretation Comments Anisocyte (test code = 1+ *ABN*(07/26/16 4:42 Anisocyte) AM) [facility]anoTwnpikaYHCQCWWNQB4984-63-25 10:42:00 Test Item Value Reference Range Interpretation Comments Basophils # (test code 0.1 See_Comment [Aut omated message] The = Basophils #) system which generated this result tra nsmitted reference range : <=0.2. The reference r leo was not used to int erpret this result as normal/abnormal . [facility]anoUibftugHKACAPHWUL9225-88-54 10:42:00 Test Item Value Reference Range Interpretation Comments Large Plt (test code Moderate *ABN*(07/26/16 = Large Plt) 4:42 AM) [facility] CenterXczhbijEHCJLUDEOM1436-33-33 10:42:00 Test Item Value Reference Range Interpretation Comments C4 Complement (test code = C4 42 16-47 Complement) [facility]2017-02-05 10:42:00 Test Item Value Reference Range Interpretation Comments B/C Ratio (test code = B/C Ratio) 17 6-25 [facility]2017-02-05 10:42:00 Test Item Value Reference Range Interpretation Comments ALT (test code = ALT) 1232 See_Comment [Auto mated message] The system which ge nerated this result transmit rohit reference range : <=65. The reference range was not used to interpr et this result as reji l/abnormal. [facility]2017-02-05 10:42:00 Test Item Value Reference Range Interpretation Comments A/G Ratio (test code = A/G Ratio) 0.5 0.7-1.6 [facility]2017-02-05 10:42:00 Test Item Value Reference Range Interpretation Comments Bili Total (test code = Bili Total) 0.3 0.2-1.3 [facility]2017-02-05 10:42:00 Test Item Value Reference Range Interpretation Comments Alk Phos (test code = Alk Phos) 79 39-136 [facility]2017-02-05 10:42:00 Test Item Value Reference Range Interpretation Comments AST (test code = AST) 586 See_Comment [Auto mated message] The system which ge nerated this result transmit rohit reference range : <=37. The reference range was not used to interpr et this result as reji l/abnormal. [facility]2017-02-05 10:42:00 Test Item Value Reference Range Interpretation Comments Total Protein (test code = Total 5.5 6.4-8.4 Protein) [facility]2017-02-05 10:42:00 Test Item Value Reference Range Interpretation Comments Globulin (test code = Globulin) 3.7 2.7-4.2 [facility]2017-02-05 10:42:00 Test Item Value Reference Range Interpretation Comments Albumin Lvl (test code = Albumin Lvl) 1.8 3.5-5.0 [facility]2017-02-05 10:42:00 Test Item Value Reference Range Interpretation Comments Magnesium Lvl (test code = Magnesium 2.1 1.8-2.4 Lvl) [facility]anoWujbmxwASQTUNYXJZ0902-41-42 10:42:00 Test Item Value Reference Range Interpretation Comments Acanthocyte (test code = Acanthocyte) [facility]anoEejinalQUSFQSHCZF8390-90-86 10:42:00 Test Item Value Reference Range Interpretation Comments Rouleaux (test code = Present *ABN*(07/26/16 Rouleaux) 4:42 AM) [facility]anoZwtwlshGFZJLJTTKR4054-44-29 10:42:00 Test Item Value Reference Range Interpretation Comments Anisocyte (test code = 1+ *ABN*(07/26/16 4:42 Anisocyte) AM) [facility]anoOfdsvpxWVSBTDXDSL9094-02-17 10:42:00 Test Item Value Reference Range Interpretation Comments Basophils # (test code 0.1 See_Comment [Aut omated message] The = Basophils #) system which generated this result tra nsmitted reference range : <=0.2. The reference r leo was not used to int erpret this result as normal/abnormal . [facility]anoBnpitnoGYEVYVUMGA2170-77-12 10:42:00 Test Item Value Reference Range Interpretation Comments Large Plt (test code Moderate *ABN*(07/26/16 = Large Plt) 4:42 AM) [facility] CenterPtnubhxUEDXNTDRDO9643-89-09 10:42:00 Test Item Value Reference Range Interpretation Comments C4 Complement (test code = C4 42 16-47 Complement) [facility]2017-02-05 10:42:00 Test Item Value Reference Range Interpretation Comments B/C Ratio (test code = B/C Ratio) 17 6-25 [facility]2017-02-05 10:42:00 Test Item Value Reference Range Interpretation Comments ALT (test code = ALT) 1232 See_Comment [Auto mated message] The system which ge nerated this result transmit rohit reference range : <=65. The reference range was not used to interpr et this result as reji l/abnormal. [facility]2017-02-05 10:42:00 Test Item Value Reference Range Interpretation Comments A/G Ratio (test code = A/G Ratio) 0.5 0.7-1.6 [facility]2017-02-05 10:42:00 Test Item Value Reference Range Interpretation Comments Bili Total (test code = Bili Total) 0.3 0.2-1.3 [facility]2017-02-05 10:42:00 Test Item Value Reference Range Interpretation Comments Alk Phos (test code = Alk Phos) 79 39-136 [facility]2017-02-05 10:42:00 Test Item Value Reference Range Interpretation Comments AST (test code = AST) 586 See_Comment [Auto mated message] The system which ge nerated this result transmit rohit reference range : <=37. The reference range was not used to interpr et this result as reji l/abnormal. [facility]2017-02-05 10:42:00 Test Item Value Reference Range Interpretation Comments Total Protein (test code = Total 5.5 6.4-8.4 Protein) [facility]2017-02-05 10:42:00 Test Item Value Reference Range Interpretation Comments Globulin (test code = Globulin) 3.7 2.7-4.2 [facility]2017-02-05 10:42:00 Test Item Value Reference Range Interpretation Comments Albumin Lvl (test code = Albumin Lvl) 1.8 3.5-5.0 [facility]2017-02-05 10:42:00 Test Item Value Reference Range Interpretation Comments Magnesium Lvl (test code = Magnesium 2.1 1.8-2.4 Lvl) [facility]PljsuqfLWDVMPZPPE0019-63-46 10:42:00 Test Item Value Reference Range Interpretation Comments Acanthocyte (test code = Acanthocyte) [facility]anoWnwcknyTGCWNVKQVB9756-75-49 10:42:00 Test Item Value Reference Range Interpretation Comments Rouleaux (test code = Present *ABN*(07/26/16 Rouleaux) 4:42 AM) [facility]anoTwyhmkdFVFMPQZKZK1832-94-62 10:42:00 Test Item Value Reference Range Interpretation Comments Anisocyte (test code = 1+ *ABN*(07/26/16 4:42 Anisocyte) AM) [facility]anoAgimajkXMAZDFZWMI8094-77-96 10:42:00 Test Item Value Reference Range Interpretation Comments Basophils # (test code 0.1 See_Comment [Aut omated message] The = Basophils #) system which generated this result tra nsmitted reference range : <=0.2. The reference r leo was not used to int erpret this result as normal/abnormal . [facility] CenterNmlecdsYFPRTEVQYR2746-00-15 10:42:00 Test Item Value Reference Range Interpretation Comments Large Plt (test code Moderate *ABN*(07/26/16 = Large Plt) 4:42 AM) [facility] CenterIksdromJRWKTZMEGQ3500-39-85 10:42:00 Test Item Value Reference Range Interpretation Comments C4 Complement (test code = C4 42 16-47 Complement) [facility] AND [id number] 16:34:00 Test Item Value Reference Range Interpretation Comments UA Sq Epi (test code = UA Sq Epi) None Seen [facility] AND [id number] 16:34:00 Test Item Value Reference Range Interpretation Comments UA Waxy Cast (test code = UA Waxy Cast) 1 [facility] AND [id number] 16:34:00 Test Item Value Reference Range Interpretation Comments UA Hyal Cast (test 4 See_Comment [Automat ed message] The code = UA Hyal Cast) system which generated this result transmit rohit reference range : <=2. The reference range was not used to interpr et this result as reji l/abnormal. [facility] AND [id number] 16:34:00 Test Item Value Reference Range Interpretation Comments UA Bacteria (test code = UA Occasional /HPF Bacteria) [facility] AND [id number] 16:34:00 Test Item Value Reference Range Interpretation Comments UA Mucus (test code = UA Mucus) Few /LPF [facility] AND [id number] 16:34:00 Test Item Value Reference Range Interpretation Comments UA Amorph Destiny (test code = Occasional /HPF UA Amorph Destiny) [facility] AND [id number] 16:34:00 Test Item Value Reference Range Interpretation Comments UA Leuk Est (test Negative (07/25/16 10:34 code = UA Leuk Est) AM) [facility] AND [id number] 16:34:00 Test Item Value Reference Range Interpretation Comments UA Nitrite (test code Negative (07/25/16 10:34 = UA Nitrite) AM) [facility] AND [id number] 16:34:00 Test Item Value Reference Range Interpretation Comments UA RBC (test code = 2 See_Comment [Automa rohit message] The UA RBC) system which ge nerated this result transmit rohit reference range : <=2. The reference range was not used to interpr et this result as reji l/abnormal. [facility] AND [id number] 16:34:00 Test Item Value Reference Range Interpretation Comments UA WBC (test code = 6 See_Comment [Automa rohit message] The UA WBC) system which ge nerated this result transmit rohit reference range : <=5. The reference range was not used to interpr et this result as reji l/abnormal. [facility] AND [id number] 16:34:00 Test Item Value Reference Range Interpretation Comments UA Urobilinogen (test code = UA 2.0 0.1-1.0 Urobilinogen) [facility] AND [id number] 16:34:00 Test Item Value Reference Range Interpretation Comments UA Ketones (test code = UA Negative mg/dL Ketones) [facility] AND [id number] 16:34:00 Test Item Value Reference Range Interpretation Comments UA Glucose (test code = UA Glucose) 70 mg/dL [facility] AND [id number] 16:34:00 Test Item Value Reference Range Interpretation Comments UA Blood (test code = Negative (07/25/16 10:34 UA Blood) AM) [facility] AND [id number] 16:34:00 Test Item Value Reference Range Interpretation Comments UA Bili (test code = Negative *NA*(07/25/16 UA Bili) 10:34 AM) [facility] AND [id number] 16:34:00 Test Item Value Reference Range Interpretation Comments UA Protein (test code = UA >=300 mg/dL Protein) [facility] AND [id number] 16:34:00 Test Item Value Reference Range Interpretation Comments UA Spec Grav (test code = UA Spec Grav) 1.012 [facility] AND [id number] 16:34:00 Test Item Value Reference Range Interpretation Comments UA pH (test code = UA pH) 5.5 5.0-8.0 [facility] AND [id number] 16:34:00 Test Item Value Reference Range Interpretation Comments UA Turbidity (test code Slight *ABN*(07/25/16 = UA Turbidity) 10:34 AM) [facility] AND [id number] 16:34:00 Test Item Value Reference Range Interpretation Comments UA Color (test code = Dark Yellow *NA*(07/25/16 UA Color) 10:34 AM) [facility] AND [id number] 16:34:00 Test Item Value Reference Range Interpretation Comments UA Gran Cast (test code = UA Gran Cast) 9 [facility] [id number] 16:34:00 Test Item Value Reference Range Interpretation Comments U Sodium (test code = U Sodium) 30 [facility] [id number] 16:34:00 Test Item Value Reference Range Interpretation Comments U Prot/Creat (test code = U Prot/Creat) 3.1 [facility]2017-02-04 16:34:00 Test Item Value Reference Range Interpretation Comments U Protein (test code = U Protein) 420.9 [facility] [id number] 16:34:00 Test Item Value Reference Range Interpretation Comments U Creatinine (test code = U 136.00 Creatinine) [facility] AND [id number] 16:34:00 Test Item Value Reference Range Interpretation Comments UA Sq Epi (test code = UA Sq Epi) None Seen [facility] AND [id number] 16:34:00 Test Item Value Reference Range Interpretation Comments UA Waxy Cast (test code = UA Waxy Cast) 1 [facility] AND [id number] 16:34:00 Test Item Value Reference Range Interpretation Comments UA Hyal Cast (test 4 See_Comment [Automat ed message] The code = UA Hyal Cast) system which generated this result transmit rohit reference range : <=2. The reference range was not used to interpr et this result as reji l/abnormal. [facility] AND [id number] 16:34:00 Test Item Value Reference Range Interpretation Comments UA Bacteria (test code = UA Occasional /HPF Bacteria) [facility] AND [id number] 16:34:00 Test Item Value Reference Range Interpretation Comments UA Mucus (test code = UA Mucus) Few /LPF [facility] AND [id number] 16:34:00 Test Item Value Reference Range Interpretation Comments UA Amorph Destiny (test code = Occasional /HPF UA Amorph Destiny) [facility] AND [id number] 16:34:00 Test Item Value Reference Range Interpretation Comments UA Leuk Est (test Negative (07/25/16 10:34 code = UA Leuk Est) AM) [facility] AND [id number] 16:34:00 Test Item Value Reference Range Interpretation Comments UA Nitrite (test code Negative (07/25/16 10:34 = UA Nitrite) AM) [facility] AND [id number] 16:34:00 Test Item Value Reference Range Interpretation Comments UA RBC (test code = 2 See_Comment [Automa rohit message] The UA RBC) system which ge nerated this result transmit rohit reference range : <=2. The reference range was not used to interpr et this result as reji l/abnormal. [facility] AND [id number] 16:34:00 Test Item Value Reference Range Interpretation Comments UA WBC (test code = 6 See_Comment [Automa rohit message] The UA WBC) system which ge nerated this result transmit rohit reference range : <=5. The reference range was not used to interpr et this result as reji l/abnormal. [facility] AND [id number] 16:34:00 Test Item Value Reference Range Interpretation Comments UA Urobilinogen (test code = UA 2.0 0.1-1.0 Urobilinogen) [facility] AND [id number] 16:34:00 Test Item Value Reference Range Interpretation Comments UA Ketones (test code = UA Negative mg/dL Ketones) [facility] AND [id number] 16:34:00 Test Item Value Reference Range Interpretation Comments UA Glucose (test code = UA Glucose) 70 mg/dL [facility] AND [id number] 16:34:00 Test Item Value Reference Range Interpretation Comments UA Blood (test code = Negative (07/25/16 10:34 UA Blood) AM) [facility] AND [id number] 16:34:00 Test Item Value Reference Range Interpretation Comments UA Bili (test code = Negative *NA*(07/25/16 UA Bili) 10:34 AM) [facility] [id number] 16:34:00 Test Item Value Reference Range Interpretation Comments UA Protein (test code = UA >=300 mg/dL [facility]) [facility] [id number] 16:34:00 Test Item Value Reference Range Interpretation Comments UA Spec Grav (test code = UA Spec Grav) 1.012 [facility] [id number] 16:34:00 Test Item Value Reference Range Interpretation Comments UA pH (test code = UA pH) 5.5 5.0-8.0 [facility] [id number] 16:34:00 Test Item Value Reference Range Interpretation Comments UA Turbidity (test code Slight *ABN*(07/25/16 = UA Turbidity) 10:34 AM) [facility] [id number] 16:34:00 Test Item Value Reference Range Interpretation Comments UA Color (test code = Dark Yellow *NA*(07/25/16 UA Color) 10:34 AM) [facility] [id number] 16:34:00 Test Item Value Reference Range Interpretation Comments UA Gran Cast (test code = UA Gran Cast) 9 [facility] [id number] 16:34:00 Test Item Value Reference Range Interpretation Comments U Sodium (test code = U Sodium) 30 [facility] [id number] 16:34:00 Test Item Value Reference Range Interpretation Comments U Prot/Creat (test code = U Prot/Creat) 3.1 [facility] [id number] 16:34:00 Test Item Value Reference Range Interpretation Comments U Protein (test code = U Protein) 420.9 [facility] [id number] 16:34:00 Test Item Value Reference Range Interpretation Comments U Creatinine (test code = U 136.00 Creatinine) [facility] [id number] 16:34:00 Test Item Value Reference Range Interpretation Comments UA Sq Epi (test code = UA Sq Epi) None [facility]en [facility] [id number] 16:34:00 Test Item Value Reference Range Interpretation Comments UA Waxy Cast (test code = UA Waxy Cast) 1 [facility] [id number] 16:34:00 Test Item Value Reference Range Interpretation Comments UA Hyal Cast (test 4 See_Comment [Automat ed message] The code = UA Hyal Cast) system which generated this result transmit rohit reference range : <=2. The reference range was not used to interpr et this result as reji l/abnormal. [facility] AND [id number] 16:34:00 Test Item Value Reference Range Interpretation Comments UA Bacteria (test code = UA Occasional /HPF Bacteria) [facility] AND [id number] 16:34:00 Test Item Value Reference Range Interpretation Comments UA Mucus (test code = UA Mucus) Few /LPF [facility] AND [id number] 16:34:00 Test Item Value Reference Range Interpretation Comments UA Amorph Destiny (test code = Occasional /HPF UA Amorph Destiny) [facility] AND [id number] 16:34:00 Test Item Value Reference Range Interpretation Comments UA Leuk Est (test Negative (07/25/16 10:34 code = UA Leuk Est) AM) [facility] AND [id number] 16:34:00 Test Item Value Reference Range Interpretation Comments UA Nitrite (test code Negative (07/25/16 10:34 = UA Nitrite) AM) [facility] AND [id number] 16:34:00 Test Item Value Reference Range Interpretation Comments UA RBC (test code = 2 See_Comment [Automa rohit message] The UA RBC) system which ge nerated this result transmit rohit reference range : <=2. The reference range was not used to interpr et this result as reji l/abnormal. [facility] AND [id number] 16:34:00 Test Item Value Reference Range Interpretation Comments UA WBC (test code = 6 See_Comment [Automa rohit message] The UA WBC) system which ge nerated this result transmit rohit reference range : <=5. The reference range was not used to interpr et this result as reji l/abnormal. [facility] AND [id number] 16:34:00 Test Item Value Reference Range Interpretation Comments UA Urobilinogen (test code = UA 2.0 0.1-1.0 Urobilinogen) [facility] AND [id number] 16:34:00 Test Item Value Reference Range Interpretation Comments UA Ketones (test code = UA Negative mg/dL Ketones) [facility] AND [id number] 16:34:00 Test Item Value Reference Range Interpretation Comments UA Glucose (test code = UA Glucose) 70 mg/dL [facility] AND [id number] 16:34:00 Test Item Value Reference Range Interpretation Comments UA Blood (test code = Negative (07/25/16 10:34 UA Blood) AM) [facility] AND [id number] 16:34:00 Test Item Value Reference Range Interpretation Comments UA Bili (test code = Negative *NA*(07/25/16 UA Bili) 10:34 AM) [facility] AND [id number] 16:34:00 Test Item Value Reference Range Interpretation Comments UA Protein (test code = UA >=300 mg/dL Protein) [facility] AND [id number] 16:34:00 Test Item Value Reference Range Interpretation Comments UA Spec Grav (test code = UA Spec Grav) 1.012 [facility] AND [id number] 16:34:00 Test Item Value Reference Range Interpretation Comments UA pH (test code = UA pH) 5.5 5.0-8.0 [facility] AND [id number] 16:34:00 Test Item Value Reference Range Interpretation Comments UA Turbidity (test code Slight *ABN*(07/25/16 = UA Turbidity) 10:34 AM) [facility] AND [id number] 16:34:00 Test Item Value Reference Range Interpretation Comments UA Color (test code = Dark Yellow *NA*(07/25/16 UA Color) 10:34 AM) [facility] AND [id number] 16:34:00 Test Item Value Reference Range Interpretation Comments UA Gran Cast (test code = UA Gran Cast) 9 [facility] [id number] 16:34:00 Test Item Value Reference Range Interpretation Comments U Sodium (test code = U Sodium) 30 [facility] [id number] 16:34:00 Test Item Value Reference Range Interpretation Comments U Prot/Creat (test code = U Prot/Creat) 3.1 [facility] [id number] 16:34:00 Test Item Value Reference Range Interpretation Comments U Protein (test code = U Protein) 420.9 [facility] [id number] 16:34:00 Test Item Value Reference Range Interpretation Comments U Creatinine (test code = U 136.00 Creatinine) [facility] AND [id number] 16:34:00 Test Item Value Reference Range Interpretation Comments UA Sq Epi (test code = UA Sq Epi) None Seen [facility] AND [id number] 16:34:00 Test Item Value Reference Range Interpretation Comments UA Waxy Cast (test code = UA Waxy Cast) 1 [facility] AND [id number] 16:34:00 Test Item Value Reference Range Interpretation Comments UA Hyal Cast (test 4 See_Comment [Automat ed message] The code = UA Hyal Cast) system which generated this result transmit rohit reference range : <=2. The reference range was not used to interpr et this result as reji l/abnormal. [facility] AND [id number] 16:34:00 Test Item Value Reference Range Interpretation Comments UA Bacteria (test code = UA Occasional /HPF Bacteria) [facility] AND [id number] 16:34:00 Test Item Value Reference Range Interpretation Comments UA Mucus (test code = UA Mucus) Few /LPF [facility] AND [id number] 16:34:00 Test Item Value Reference Range Interpretation Comments UA Amorph Destiny (test code = Occasional /HPF UA Amorph Destiny) [facility] AND [id number] 16:34:00 Test Item Value Reference Range Interpretation Comments UA Leuk Est (test Negative (07/25/16 10:34 code = UA Leuk Est) AM) [facility] AND [id number] 16:34:00 Test Item Value Reference Range Interpretation Comments UA Nitrite (test code Negative (07/25/16 10:34 = UA Nitrite) AM) [facility] AND [id number] 16:34:00 Test Item Value Reference Range Interpretation Comments UA RBC (test code = 2 See_Comment [Automa rohit message] The UA RBC) system which ge nerated this result transmit rohit reference range : <=2. The reference range was not used to interpr et this result as reji l/abnormal. [facility] AND [id number] 16:34:00 Test Item Value Reference Range Interpretation Comments UA WBC (test code = 6 See_Comment [Automa rohit message] The UA WBC) system which ge nerated this result transmit rohit reference range : <=5. The reference range was not used to interpr et this result as reji l/abnormal. [facility] AND [id number] 16:34:00 Test Item Value Reference Range Interpretation Comments UA Urobilinogen (test code = UA 2.0 0.1-1.0 Urobilinogen) [facility] AND [id number] 16:34:00 Test Item Value Reference Range Interpretation Comments UA Ketones (test code = UA Negative mg/dL Ketones) [facility] AND [id number] 16:34:00 Test Item Value Reference Range Interpretation Comments UA Glucose (test code = UA Glucose) 70 mg/dL [facility] AND [id number] 16:34:00 Test Item Value Reference Range Interpretation Comments UA Blood (test code = Negative (07/25/16 10:34 UA Blood) AM) [facility] AND [id number] 16:34:00 Test Item Value Reference Range Interpretation Comments UA Bili (test code = Negative *NA*(07/25/16 UA Bili) 10:34 AM) [facility] AND [id number] 16:34:00 Test Item Value Reference Range Interpretation Comments UA Protein (test code = UA >=300 mg/dL Protein) [facility] AND [id number] 16:34:00 Test Item Value Reference Range Interpretation Comments UA Spec Grav (test code = UA Spec Grav) 1.012 [facility] AND [id number] 16:34:00 Test Item Value Reference Range Interpretation Comments UA pH (test code = UA pH) 5.5 5.0-8.0 [facility] AND [id number] 16:34:00 Test Item Value Reference Range Interpretation Comments UA Turbidity (test code Slight *ABN*(07/25/16 = UA Turbidity) 10:34 AM) [facility] AND [id number] 16:34:00 Test Item Value Reference Range Interpretation Comments UA Color (test code = Dark Yellow *NA*(07/25/16 UA Color) 10:34 AM) [facility] AND [id number] 16:34:00 Test Item Value Reference Range Interpretation Comments UA Gran Cast (test code = UA Gran Cast) 9 [facility] [id number] 16:34:00 Test Item Value Reference Range Interpretation Comments U Sodium (test code = U Sodium) 30 [facility]2017-02-04 16:34:00 Test Item Value Reference Range Interpretation Comments U Prot/Creat (test code = U Prot/Creat) 3.1 [facility]2017-02-04 16:34:00 Test Item Value Reference Range Interpretation Comments U Protein (test code = U Protein) 420.9 [facility]2017-02-04 16:34:00 Test Item Value Reference Range Interpretation Comments U Creatinine (test code = U 136.00 Creatinine) [facility] AND [id number] 16:34:00 Test Item Value Reference Range Interpretation Comments UA Sq Epi (test code = UA Sq Epi) None Seen [facility] AND [id number] 16:34:00 Test Item Value Reference Range Interpretation Comments UA Waxy Cast (test code = UA Waxy Cast) 1 [facility] AND [id number] 16:34:00 Test Item Value Reference Range Interpretation Comments UA Hyal Cast (test 4 See_Comment [Automat ed message] The code = UA Hyal Cast) system which generated this result transmit rohit reference range : <=2. The reference range was not used to interpr et this result as reji l/abnormal. [facility] AND [id number] 16:34:00 Test Item Value Reference Range Interpretation Comments UA Bacteria (test code = UA Occasional /HPF Bacteria) [facility] AND [id number] 16:34:00 Test Item Value Reference Range Interpretation Comments UA Mucus (test code = UA Mucus) Few /LPF [facility] AND [id number] 16:34:00 Test Item Value Reference Range Interpretation Comments UA Amorph Destiny (test code = Occasional /HPF UA Amorph Destiny) [facility] AND [id number] 16:34:00 Test Item Value Reference Range Interpretation Comments UA Leuk Est (test Negative (07/25/16 10:34 code = UA Leuk Est) AM) [facility] AND [id number] 16:34:00 Test Item Value Reference Range Interpretation Comments UA Nitrite (test code Negative (07/25/16 10:34 = UA Nitrite) AM) [facility] AND [id number] 16:34:00 Test Item Value Reference Range Interpretation Comments UA RBC (test code = 2 See_Comment [Automa rohit message] The UA RBC) system which ge nerated this result transmit rohit reference range : <=2. The reference range was not used to interpr et this result as reji l/abnormal. [facility] AND [id number] 16:34:00 Test Item Value Reference Range Interpretation Comments UA WBC (test code = 6 See_Comment [Automa rohit message] The UA WBC) system which ge nerated this result transmit rohit reference range : <=5. The reference range was not used to interpr et this result as reji l/abnormal. [facility] AND [id number] 16:34:00 Test Item Value Reference Range Interpretation Comments UA Urobilinogen (test code = UA 2.0 0.1-1.0 Urobilinogen) [facility] AND [id number] 16:34:00 Test Item Value Reference Range Interpretation Comments UA Ketones (test code = UA Negative mg/dL Ketones) [facility] AND [id number] 16:34:00 Test Item Value Reference Range Interpretation Comments UA Glucose (test code = UA Glucose) 70 mg/dL [facility] AND [id number] 16:34:00 Test Item Value Reference Range Interpretation Comments UA Blood (test code = Negative (07/25/16 10:34 UA Blood) AM) [facility] AND [id number] 16:34:00 Test Item Value Reference Range Interpretation Comments UA Bili (test code = Negative *NA*(07/25/16 UA Bili) 10:34 AM) [facility] AND [id number] 16:34:00 Test Item Value Reference Range Interpretation Comments UA Protein (test code = UA >=300 mg/dL Protein) [facility] AND [id number] 16:34:00 Test Item Value Reference Range Interpretation Comments UA Spec Grav (test code = UA Spec Grav) 1.012 [facility] AND [id number] 16:34:00 Test Item Value Reference Range Interpretation Comments UA pH (test code = UA pH) 5.5 5.0-8.0 [facility] AND [id number] 16:34:00 Test Item Value Reference Range Interpretation Comments UA Turbidity (test code Slight *ABN*(07/25/16 = UA Turbidity) 10:34 AM) [facility] AND [id number] 16:34:00 Test Item Value Reference Range Interpretation Comments UA Color (test code = Dark Yellow *NA*(07/25/16 UA Color) 10:34 AM) [facility] AND [id number] 16:34:00 Test Item Value Reference Range Interpretation Comments UA Gran Cast (test code = UA Gran Cast) 9 [facility]2017-02-04 16:34:00 Test Item Value Reference Range Interpretation Comments U Sodium (test code = U Sodium) 30 [facility]2017-02-04 16:34:00 Test Item Value Reference Range Interpretation Comments U Prot/Creat (test code = U Prot/Creat) 3.1 [facility]2017-02-04 16:34:00 Test Item Value Reference Range Interpretation Comments U Protein (test code = U Protein) 420.9 [facility]2017-02-04 16:34:00 Test Item Value Reference Range Interpretation Comments U Creatinine (test code = U 136.00 Creatinine) [facility]2017-02-04 08:55:00 Test Item Value Reference Range Interpretation Comments Magnesium Lvl (test code = Magnesium 2.0 1.8-2.4 Lvl) [facility]2017-02-04 08:55:00 Test Item Value Reference Range Interpretation Comments Phosphorus (test code = Phosphorus) 5.2 2.5-4.5 [facility]2017-02-04 08:55:00 Test Item Value Reference Range Interpretation Comments Magnesium Lvl (test code = Magnesium 2.0 1.8-2.4 Lvl) [facility]2017-02-04 08:55:00 Test Item Value Reference Range Interpretation Comments Phosphorus (test code = Phosphorus) 5.2 2.5-4.5 [facility]2017-02-04 08:55:00 Test Item Value Reference Range Interpretation Comments Magnesium Lvl (test code = Magnesium 2.0 1.8-2.4 Lvl) [facility] [id number] 08:55:00 Test Item Value Reference Range Interpretation Comments Phosphorus (test code = Phosphorus) 5.2 2.5-4.5 [facility] [id number] 08:55:00 Test Item Value Reference Range Interpretation Comments Magnesium Lvl (test code = Magnesium 2.0 1.8-2.4 Lvl) [facility] [id number] 08:55:00 Test Item Value Reference Range Interpretation Comments Phosphorus (test code = Phosphorus) 5.2 2.5-4.5 [facility] [id number] 08:55:00 Test Item Value Reference Range Interpretation Comments Magnesium Lvl (test code = Magnesium 2.0 1.8-2.4 Lvl) [facility] [id number] 08:55:00 Test Item Value Reference Range Interpretation Comments Phosphorus (test code = Phosphorus) 5.2 2.5-4.5 [facility]icsMxBiodevices2017-02-03 17:29:00 Test Item Value Reference Range Interpretation Comments Troponin-I (test code 0.28 See_Comment [Auto mated message] The = Troponin-I) system which g enerated this result transmit rohit reference range : <=0.40. The reference r leo was not used to interpr et this result as reji l/abnormal. [facility] ClinicsChibwe [id number] 17:29:00 Test Item Value Reference Range Interpretation Comments Total CK (test code = Total CK) 2616 12-191 [facility] ClinicsMxBiodevices2017-02-03 17:29:00 Test Item Value Reference Range Interpretation Comments Troponin-T (test code 0.144 See_Comment [Auto mated message] The = Troponin-T) system which g enerated this result transmit rohit reference range : <=0.100. The reference r leo was not used to interpr et this result as reji l/abnormal. [facility]icsMxBiodevices2017-02-03 17:29:00 Test Item Value Reference Range Interpretation Comments CK MB Index (test 0.2 See_Comment [Automate d message] The code = CK MB Index) system w [facility] generated this result transmit rohit reference range : <=2.5. The reference range was not used to interpr et this result as reji l/abnormal. [facility] [employer]2017-02-03 17:29:00 Test Item Value Reference Range Interpretation Comments CK MB (test code = CK MB) 6.3 0.5-3.6 [facility] ClinicsDGSE [id number] 17:29:00 Test Item Value Reference Range Interpretation Comments Troponin-I (test code 0.28 See_Comment [Auto mated message] The = Troponin-I) system which g enerated this result transmit rohit reference range : <=0.40. The reference r leo was not used to interpr et this result as reji l/abnormal. [facility] [employer]2017-02-03 17:29:00 Test Item Value Reference Range Interpretation Comments Total CK (test code = Total CK) 2616 12-191 [facility] [employer]2017-02-03 17:29:00 Test Item Value Reference Range Interpretation Comments Troponin-T (test code 0.144 See_Comment [Auto mated message] The = Troponin-T) system which g enerated this result transmit rohit reference range : <=0.100. The reference r leo was not used to interpr et this result as reji l/abnormal. [facility] [employer]2017-02-03 17:29:00 Test Item Value Reference Range Interpretation Comments CK MB Index (test 0.2 See_Comment [Automate d message] The code = CK MB Index) system [employer] generated this result transmit rohit reference range : <=2.5. The reference range was not used to interpr et this result as reji l/abnormal. [facility] [employer]2017-02-03 17:29:00 Test Item Value Reference Range Interpretation Comments CK MB (test code = CK MB) 6.3 0.5-3.6 [facility] [employer] [id number] 17:29:00 Test Item Value Reference Range Interpretation Comments Troponin-I (test code 0.28 See_Comment [Auto mated message] The = Troponin-I) system which g enerated this result transmit rohit reference range : <=0.40. The reference r leo was not used to interpr et this result as reji l/abnormal. [facility] [employer] [id number] 17:29:00 Test Item Value Reference Range Interpretation Comments Total CK (test code = Total CK) 2615 [facility] ClinicsnaeemWear My TagsAC [id number] 17:29:00 Test Item Value Reference Range Interpretation Comments Troponin-T (test code 0.144 See_Comment [Auto mated message] The = Troponin-T) system which g enerated this result transmit rohit reference range : <=0.100. The reference r leo was not used to interpr et this result as reji l/abnormal. [facility] [employer] [id number] 17:29:00 Test Item Value Reference Range Interpretation Comments CK MB Index (test 0.2 See_Comment [Automate d message] The code = CK MB Index) system w [facility] generated this result transmit rohit reference range : <=2.5. The reference range was not used to interpr et this result as reji l/abnormal. [facility] [employer] [id number] 17:29:00 Test Item Value Reference Range Interpretation Comments CK MB (test code = CK MB) 6.3 0.5-3.6 [facility] ClinicsDGSE [id number] 17:29:00 Test Item Value Reference Range Interpretation Comments Troponin-I (test code 0.28 See_Comment [Auto mated message] The = Troponin-I) system which g enerated this result transmit rohit reference range : <=0.40. The reference r leo was not used to interpr et this result as reji l/abnormal. [facility] [employer] [id number] 17:29:00 Test Item Value Reference Range Interpretation Comments Total CK (test code = Total CK) 2615 [facility] ClinicsnaeemTheySay [id number] 17:29:00 Test Item Value Reference Range Interpretation Comments Troponin-T (test code 0.144 See_Comment [Auto mated message] The = Troponin-T) system which g enerated this result transmit rohit reference range : <=0.100. The reference r leo was not used to interpr et this result as reji l/abnormal. [facility] [employer] [id number] 17:29:00 Test Item Value Reference Range Interpretation Comments CK MB Index (test 0.2 See_Comment [Automate d message] The code = CK MB Index) system w [facility] generated this result transmit rohit reference range : <=2.5. The reference range was not used to interpr et this result as reji l/abnormal. [facility] [employer]2017-02-03 17:29:00 Test Item Value Reference Range Interpretation Comments CK MB (test code = CK MB) 6.3 0.5-3.6 [facility] [employer]2017-02-03 17:29:00 Test Item Value Reference Range Interpretation Comments Troponin-I (test code 0.28 See_Comment [Auto mated message] The = Troponin-I) system which g enerated this result transmit rohit reference range : <=0.40. The reference r leo was not used to interpr et this result as reji l/abnormal. [facility] [employer]2017-02-03 17:29:00 Test Item Value Reference Range Interpretation Comments Total CK (test code = Total CK) 2616 12-191 [facility] [employer]2017-02-03 17:29:00 Test Item Value Reference Range Interpretation Comments Troponin-T (test code 0.144 See_Comment [Auto mated message] The = Troponin-T) system which g enerated this result transmit rohit reference range : <=0.100. The reference r leo was not used to interpr et this result as reji l/abnormal. [facility] [employer]2017-02-03 17:29:00 Test Item Value Reference Range Interpretation Comments CK MB Index (test 0.2 See_Comment [Automate d message] The code = CK MB Index) system w [employer] generated this result transmit rohit reference range : <=2.5. The reference range was not used to interpr et this result as reji l/abnormal. [facility] [employer]2017-02-03 17:29:00 Test Item Value Reference Range Interpretation Comments CK MB (test code = CK MB) 6.3 0.5-3.6 [facility] [employer]2017-02-03 11:20:00 Test Item Value Reference Range Interpretation Comments Troponin-I (test code 0.38 See_Comment [Auto mated message] The = Troponin-I) system which g enerated this result transmit rohit reference range : <=0.40. The reference r leo was not used to interpr et this result as reji l/abnormal. [facility] [employer]2017-02-03 11:20:00 Test Item Value Reference Range Interpretation Comments Troponin-T (test code 0.173 See_Comment [Auto mated message] The = Troponin-T) system which g enerated this result transmit rohit reference range : <=0.100. The reference r leo was not used to interpr et this result as reji l/abnormal. [facility] [employer]2017-02-03 11:20:00 Test Item Value Reference Range Interpretation Comments CK MB Index (test 0.2 See_Comment [Automate d message] The code = CK MB Index) system w [facility] generated this result transmit rohit reference range : <=2.5. The reference range was not used to interpr et this result as reji l/abnormal. [facility] [employer]2017-02-03 11:20:00 Test Item Value Reference Range Interpretation Comments CK MB (test code = CK MB) 5.6 0.5-3.6 [facility] [place] [id number] 11:20:00 Test Item Value Reference Range Interpretation Comments Phosphorus (test code = Phosphorus) 5.5 2.5-4.5 [facility] [employer]2017-02-03 11:20:00 Test Item Value Reference Range Interpretation Comments Troponin-I (test code 0.38 See_Comment [Auto mated message] The = Troponin-I) system which g enerated this result transmit rohit reference range : <=0.40. The reference r leo was not used to interpr et this result as reji l/abnormal. [facility] [employer]2017-02-03 11:20:00 Test Item Value Reference Range Interpretation Comments Troponin-T (test code 0.173 See_Comment [Auto mated message] The = Troponin-T) system which g enerated this result transmit rohit reference range : <=0.100. The reference r leo was not used to interpr et this result as reji l/abnormal. [facility] [employer]2017-02-03 11:20:00 Test Item Value Reference Range Interpretation Comments CK MB Index (test 0.2 See_Comment [Automate d message] The code = CK MB Index) system w [facility] generated this result transmit rohit reference range : <=2.5. The reference range was not used to interpr et this result as reji l/abnormal. [facility] [employer]2017-02-03 11:20:00 Test Item Value Reference Range Interpretation Comments CK MB (test code = CK MB) 5.6 0.5-3.6 [facility] [employer] [id number] 11:20:00 Test Item Value Reference Range Interpretation Comments Phosphorus (test code = Phosphorus) 5.5 2.5-4.5 [facility] [employer]2017-02-03 11:20:00 Test Item Value Reference Range Interpretation Comments Troponin-I (test code 0.38 See_Comment [Auto mated message] The = Troponin-I) system which g enerated this result transmit rohit reference range : <=0.40. The reference r leo was not used to interpr et this result as reji l/abnormal. [facility] [employer]2017-02-03 11:20:00 Test Item Value Reference Range Interpretation Comments Troponin-T (test code 0.173 See_Comment [Auto mated message] The = Troponin-T) system which g enerated this result transmit rohit reference range : <=0.100. The reference r leo was not used to interpr et this result as reji l/abnormal. [facility] [employer]2017-02-03 11:20:00 Test Item Value Reference Range Interpretation Comments CK MB Index (test 0.2 See_Comment [Automate d message] The code = CK MB Index) system w [facility] generated this result transmit rohit reference range : <=2.5. The reference range was not used to interpr et this result as reji l/abnormal. [facility] [employer]2017-02-03 11:20:00 Test Item Value Reference Range Interpretation Comments CK MB (test code = CK MB) 5.6 0.5-3.6 [facility] [employer] [id number] 11:20:00 Test Item Value Reference Range Interpretation Comments Phosphorus (test code = Phosphorus) 5.5 2.5-4.5 [facility] [employer]2017-02-03 11:20:00 Test Item Value Reference Range Interpretation Comments Troponin-I (test code 0.38 See_Comment [Auto mated message] The = Troponin-I) system which g enerated this result transmit rohit reference range : <=0.40. The reference r leo was not used to interpr et this result as reji l/abnormal. [facility] [employer]2017-02-03 11:20:00 Test Item Value Reference Range Interpretation Comments Troponin-T (test code 0.173 See_Comment [Auto mated message] The = Troponin-T) system which g enerated this result transmit rohit reference range : <=0.100. The reference r leo was not used to interpr et this result as reji l/abnormal. [facility] [employer]2017-02-03 11:20:00 Test Item Value Reference Range Interpretation Comments CK MB Index (test 0.2 See_Comment [Automate d message] The code = CK MB Index) system w [facility] generated this result transmit rohit reference range : <=2.5. The reference range was not used to interpr et this result as reji l/abnormal. [facility] [employer]2017-02-03 11:20:00 Test Item Value Reference Range Interpretation Comments CK MB (test code = CK MB) 5.6 0.5-3.6 [facility] [place] [id number] 11:20:00 Test Item Value Reference Range Interpretation Comments Phosphorus (test code = Phosphorus) 5.5 2.5-4.5 [facility] [employer]2017-02-03 11:20:00 Test Item Value Reference Range Interpretation Comments Troponin-I (test code 0.38 See_Comment [Auto mated message] The = Troponin-I) system which g enerated this result transmit rohit reference range : <=0.40. The reference r leo was not used to interpr et this result as reji l/abnormal. [facility] [employer]2017-02-03 11:20:00 Test Item Value Reference Range Interpretation Comments Troponin-T (test code 0.173 See_Comment [Auto mated message] The = Troponin-T) system which g enerated this result transmit rohit reference range : <=0.100. The reference r leo was not used to interpr et this result as reji l/abnormal. [facility] [employer]2017-02-03 11:20:00 Test Item Value Reference Range Interpretation Comments CK MB Index (test 0.2 See_Comment [Automate d message] The code = CK MB Index) system w [facility] generated this result transmit rohti reference range : <=2.5. The reference range was not used to interpr et this result as reji l/abnormal. [facility] [employer]2017-02-03 11:20:00 Test Item Value Reference Range Interpretation Comments CK MB (test code = CK MB) 5.6 0.5-3.6 [facility] [employer] [id number] 11:20:00 Test Item Value Reference Range Interpretation Comments Phosphorus (test code = Phosphorus) 5.5 2.5-4.5 [facility] [employer] [id number] 06:18:00 Test Item Value Reference Range Interpretation Comments BNP (test code = BNP) 701 [facility] [employer]2017-02-03 06:18:00 Test Item Value Reference Range Interpretation Comments BNP (test code = BNP) 701 [facility] [employer]2017-02-03 06:18:00 Test Item Value Reference Range Interpretation Comments BNP (test code = BNP) 701 [employer]2017-02-03 06:18:00 Test Item Value Reference Range Interpretation Comments BNP (test code = BNP) 701 [facility] [employer]2017-02-03 06:18:00 Test Item Value Reference Range Interpretation Comments BNP (test code = BNP) 701 [facility] [employer]2017-02-03 04:59:27 Test Item Value Reference Range Interpretation Comments Troponin-I (test code 0.57 See_Comment [Auto mated message] The = Troponin-I) system which g enerated this result transmit rohit reference range : <=0.40. The reference r leo was not used to interpr et this result as reji l/abnormal. [facility] [employer]2017-02-03 04:59:27 Test Item Value Reference Range Interpretation Comments Troponin-I (test code 0.57 See_Comment [Auto mated message] The = Troponin-I) system which g enerated this result transmit rohit reference range : <=0.40. The reference r leo was not used to interpr et this result as reji l/abnormal. [facility] [employer]2017-02-03 04:59:27 Test Item Value Reference Range Interpretation Comments Troponin-I (test code 0.57 See_Comment [Auto mated message] The = Troponin-I) system which g enerated this result transmit rohit reference range : <=0.40. The reference r leo was not used to interpr et this result as reji l/abnormal. [facility] [employer]2017-02-03 04:59:27 Test Item Value Reference Range Interpretation Comments Troponin-I (test code 0.57 See_Comment [Auto mated message] The = Troponin-I) system which g enerated this result transmit rohit reference range : <=0.40. The reference r leo was not used to interpr et this result as reji l/abnormal. [facility] [employer]2017-02-03 04:59:27 Test Item Value Reference Range Interpretation Comments Troponin-I (test code 0.57 See_Comment [Auto mated message] The = Troponin-I) system which g enerated this result transmit rohit reference range : <=0.40. The reference r leo was not used to interpr et this result as reji l/abnormal. [facility] [employer]2016-12-26 10:22:00 Test Item Value Reference Range Interpretation Comments BNP (test code = BNP) 526 [facility] [employer]2016-12-26 10:22:00 Test Item Value Reference Range Interpretation Comments Magnesium Lvl (test code = Magnesium 2.1 1.8-2.4 Lvl) [facility] [employer]2016-12-26 10:22:00 Test Item Value Reference Range Interpretation Comments Glucose Lvl (test code = Glucose Lvl) 117 70-99 [facility] [employer]2016-12-26 10:22:00 Test Item Value Reference Range Interpretation Comments BUN (test code = BUN) 41 7-22 [facility] [employer]2016-12-26 10:22:00 Test Item Value Reference Range Interpretation Comments Creatinine Lvl (test code = Creatinine 2.00 0.50-1.40 Lvl) [facility] [employer]2016-12-26 10:22:00 Test Item Value Reference Range Interpretation Comments Calcium Lvl (test code = Calcium Lvl) 9.0 8.5-10.5 [facility]2016-12-26 10:22:00 Test Item Value Reference Range Interpretation Comments Chloride Lvl (test code = Chloride Lvl) 102 95-109 [facility]2016-12-26 10:22:00 Test Item Value Reference Range Interpretation Comments CO2 (test code = CO2) 33 24-32 [facility]2016-12-26 10:22:00 Test Item Value Reference Range Interpretation Comments Sodium Lvl (test code = Sodium Lvl) 144 135-145 [facility]2016-12-26 10:22:00 Test Item Value Reference Range Interpretation Comments Potassium Lvl (test code = Potassium 4.0 3.5-5.1 Lvl) [facility]2016-12-26 10:22:00 Test Item Value Reference Range Interpretation Comments eGFR (test code = eGFR) 32 [facility]2016-12-26 10:22:00 Test Item Value Reference Range Interpretation Comments AGAP (test code = AGAP) 13.0 10.0-20.0 [facility]2016-12-26 10:22:00 Test Item Value Reference Range Interpretation Comments Phosphorus (test code = Phosphorus) 4.6 2.5-4.5 [id number] 10:22:00 Test Item Value Reference Range Interpretation Comments RBC (test code = RBC) 3.68 4.20-5.40 [facility]anoJekusikUBLQDNOHBG8160-39-04 10:22:00 Test Item Value Reference Range Interpretation Comments Hgb (test code = Hgb) 9.9 12.0-16.0 [facility] PlanoXxufjtlULIGEULSBH2123-45-31 10:22:00 Test Item Value Reference Range Interpretation Comments MCH (test code = MCH) 26.8 pg 27.0-31.0 [facility] PlanoMbjdykaXTFGAMYBDF4528-01-73 10:22:00 Test Item Value Reference Range Interpretation Comments MCHC (test code = MCHC) 34.2 32.0-36.0 [facility]anoLdrplmxVHUODURBZJ8360-79-14 10:22:00 Test Item Value Reference Range Interpretation Comments MCV (test code = MCV) 78.3 80.0-98.0 [facility] Pla[id number] 10:22:00 Test Item Value Reference Range Interpretation Comments Hct (test code = Hct) 28.8 36.0-48.0 [facility]anoGpyrqvgMWOQYJHBWU4267-30-82 10:22:00 Test Item Value Reference Range Interpretation Comments Platelet (test code = Platelet) 191 133-450 [facility] PlanoDzfqyedSEBJNEUAWO0323-19-15 10:22:00 Test Item Value Reference Range Interpretation Comments MPV (test code = MPV) 9.5 7.4-10.4 [facility]a[id number] 10:22:00 Test Item Value Reference Range Interpretation Comments RDW (test code = RDW) 15.3 11.5-14.5 [facility] PlanoBsdiackLXDOEKNMUU6386-07-09 10:22:00 Test Item Value Reference Range Interpretation Comments WBC (test code = WBC) 5.6 3.7-10.4 [id number] 10:22:00 Test Item Value Reference Range Interpretation Comments Eosinophils # (test code 0.5 See_Comment [A utomated message] The = Eosinophils #) system [facility] h generated this result tra nsmitted reference range : <=0.5. The reference r leo was not used to int erpret this result as normal/abnormal . [facility]anoJgvkrytTBROYTRVLC3195-85-98 10:22:00 Test Item Value Reference Range Interpretation Comments Microcyte (test code = 1+ *ABN*(06/15/16 Microcyte) 4:22 AM) [facility]anoHgkwzikRHDQKIDLLF5621-99-53 10:22:00 Test Item Value Reference Range Interpretation Comments Basophils # (test code 0.1 See_Comment [Aut omated message] The = Basophils #) system which generated this result tra nsmitted reference range : <=0.2. The reference r leo was not used to int erpret this result as normal/abnormal . [facility] PlanoRtsddmiXFIHEYCRYX7744-71-93 10:22:00 Test Item Value Reference Range Interpretation Comments Lymphocytes (test code = Lymphocytes) 33.5 20.0-40.0 [facility] PlanoNzbrmiiESFTGMRADW9345-62-26 10:22:00 Test Item Value Reference Range Interpretation Comments Segs (test code = Segs) 47.6 45.0-75.0 [facility] PlanoCvwskmsYBHUVEFNAC0937-97-81 10:22:00 Test Item Value Reference Range Interpretation Comments Monocytes (test code = Monocytes) 8.4 2.0-12.0 [facility]ClpuobjKUFZYRLXOG4473-53-72 10:22:00 Test Item Value Reference Range Interpretation Comments Eosinophils (test code = 9.4 See_Comment [A utomated message] The Eosinophils) system which ge nerated this result tra nsmitted reference range : <=4.0. The reference r leo was not used to int erpret this result as normal/abnormal . [facility] PlanoHemlfmlKMMNLFFLAZ4529-03-97 10:22:00 Test Item Value Reference Range Interpretation Comments Segs-Bands # (test code = Segs-Bands #) 2.6 1.5-8.1 [facility] PlanoHpdtztsLQWJKFESSV4327-40-52 10:22:00 Test Item Value Reference Range Interpretation Comments Lymphocytes # (test code = Lymphocytes 1.9 1.0-5.5 #) [facility]anoAslpfpdVKPTCAKQXG0561-11-89 10:22:00 Test Item Value Reference Range Interpretation Comments Basophils (test code = 1.1 See_Comment [Aut omated message] The Basophils) system which ge nerated this result tra nsmitted reference range : <=1.0. The reference r leo was not used to int erpret this result as normal/abnormal . [facility] PlanoMzqqjzmWIVQGRGIFH2052-56-47 10:22:00 Test Item Value Reference Range Interpretation Comments Monocytes # (test code 0.5 See_Comment [Aut omated message] The = Monocytes #) system which generated this result tra nsmitted reference range : <=0.8. The reference r leo was not used to int erpret this result as normal/abnormal . [facility]RA[facility] [id number] 10:22:00 Test Item Value Reference Range Interpretation Comments BNP (test code = BNP) 526 [facility] [id number] 10:22:00 Test Item Value Reference Range Interpretation Comments Magnesium Lvl (test code = Magnesium 2.1 1.8-2.4 Lvl) [facility] [id number] 10:22:00 Test Item Value Reference Range Interpretation Comments Glucose Lvl (test code = Glucose Lvl) 117 70-99 [facility] [id number] 10:22:00 Test Item Value Reference Range Interpretation Comments BUN (test code = BUN) 41 7-22 [facility]2016-12-26 10:22:00 Test Item Value Reference Range Interpretation Comments Creatinine Lvl (test code = Creatinine 2.00 0.50-1.40 Lvl) [facility]2016-12-26 10:22:00 Test Item Value Reference Range Interpretation Comments Calcium Lvl (test code = Calcium Lvl) 9.0 8.5-10.5 [facility]2016-12-26 10:22:00 Test Item Value Reference Range Interpretation Comments Chloride Lvl (test code = Chloride Lvl) 102 95-109 [facility]2016-12-26 10:22:00 Test Item Value Reference Range Interpretation Comments CO2 (test code = CO2) 33 24-32 [facility]2016-12-26 10:22:00 Test Item Value Reference Range Interpretation Comments Sodium Lvl (test code = Sodium Lvl) 144 135-145 [facility]2016-12-26 10:22:00 Test Item Value Reference Range Interpretation Comments Potassium Lvl (test code = Potassium 4.0 3.5-5.1 Lvl) [facility]2016-12-26 10:22:00 Test Item Value Reference Range Interpretation Comments eGFR (test code = eGFR) 32 [facility]2016-12-26 10:22:00 Test Item Value Reference Range Interpretation Comments AGAP (test code = AGAP) 13.0 10.0-20.0 [facility]2016-12-26 10:22:00 Test Item Value Reference Range Interpretation Comments Phosphorus (test code = Phosphorus) 4.6 2.5-4.5 [facility]anoIxxkmcfRDUIONNUCP5150-72-95 10:22:00 Test Item Value Reference Range Interpretation Comments RBC (test code = RBC) 3.68 4.20-5.40 [facility] PlanoMqiysljHYFZUNEXZL3579-00-35 10:22:00 Test Item Value Reference Range Interpretation Comments Hgb (test code = Hgb) 9.9 12.0-16.0 [facility] PlanoLwfmopkCLORXKJVCV6886-67-57 10:22:00 Test Item Value Reference Range Interpretation Comments MCH (test code = MCH) 26.8 pg 27.0-31.0 [facility] PlanoIgkebonRRXVDXFVVS6616-48-01 10:22:00 Test Item Value Reference Range Interpretation Comments MCHC (test code = MCHC) 34.2 32.0-36.0 [facility] PlanoZdwjrzyYOMDDEVNGX7371-78-52 10:22:00 Test Item Value Reference Range Interpretation Comments MCV (test code = MCV) 78.3 80.0-98.0 [facility] PlanoTeyxceyIJWORIDJDN4431-07-57 10:22:00 Test Item Value Reference Range Interpretation Comments Hct (test code = Hct) 28.8 36.0-48.0 [facility] PlanoEjfzfnmOHOGXQEJYZ1012-32-62 10:22:00 Test Item Value Reference Range Interpretation Comments Platelet (test code = Platelet) 191 133-450 [facility] PlanoSuvkpbjMCCKXVCLWC3470-12-90 10:22:00 Test Item Value Reference Range Interpretation Comments MPV (test code = MPV) 9.5 7.4-10.4 [facility] PlanoHxhxswoUNCXILBGVC3979-49-79 10:22:00 Test Item Value Reference Range Interpretation Comments RDW (test code = RDW) 15.3 11.5-14.5 [facility] PlanoPlafphwDUXAWLFCBV2775-51-69 10:22:00 Test Item Value Reference Range Interpretation Comments WBC (test code = WBC) 5.6 3.7-10.4 [facility] PlanoXezmbazPYWKXXVYVF2069-33-06 10:22:00 Test Item Value Reference Range Interpretation Comments Eosinophils # (test code 0.5 See_Comment [A utomated message] The = Eosinophils #) system whic h generated this result tra nsmitted reference range : <=0.5. The reference r leo was not used to int erpret this result as normal/abnormal . [facility] PlanoSdcwqgqIZFBASLHUC1300-02-01 10:22:00 Test Item Value Reference Range Interpretation Comments Microcyte (test code = 1+ *ABN*(06/15/16 [employer]) 4:22 AM) [facility] PlanoHmuypigMKTDPFHLAW8621-41-77 10:22:00 Test Item Value Reference Range Interpretation Comments Basophils # (test code 0.1 See_Comment [Aut omated message] The = Basophils #) system which generated this result tra nsmitted reference range : <=0.2. The reference r leo was not used to int erpret this result as normal/abnormal . [facility] PlanoRzirlwxHXMTZPONNV6215-99-00 10:22:00 Test Item Value Reference Range Interpretation Comments Lymphocytes (test code = Lymphocytes) 33.5 20.0-40.0 [facility] CenterYfnjyuzVLCRYUOPEG6158-08-47 10:22:00 Test Item Value Reference Range Interpretation Comments Segs (test code = Segs) 47.6 45.0-75.0 [facility] PlanoRkbwmvxXFPIBMBSET2853-29-62 10:22:00 Test Item Value Reference Range Interpretation Comments Monocytes (test code = Monocytes) 8.4 2.0-12.0 [facility] PlanoTyqcvoqQCWUOOGDXO9255-61-14 10:22:00 Test Item Value Reference Range Interpretation Comments Eosinophils (test code = 9.4 See_Comment [A utomated message] The Eosinophils) system which ge nerated this result tra nsmitted reference range : <=4.0. The reference r leo was not used to int erpret this result as normal/abnormal . [facility] PlanoYskttpgRRNEASNIAF3332-49-51 10:22:00 Test Item Value Reference Range Interpretation Comments Segs-Bands # (test code = Segs-Bands #) 2.6 1.5-8.1 [facility] PlanoHkhlprsZLEOJOVLBW0502-97-60 10:22:00 Test Item Value Reference Range Interpretation Comments Lymphocytes # (test code = Lymphocytes 1.9 1.0-5.5 #) [facility] PlanoDhrcgcxRFJLAFGXEI4922-29-46 10:22:00 Test Item Value Reference Range Interpretation Comments Basophils (test code = 1.1 See_Comment [Aut omated message] The Basophils) system which ge nerated this result tra nsmitted reference range : <=1.0. The reference r leo was not used to int erpret this result as normal/abnormal . [facility] PlanoWdwzjapBGMXXAYTIE1621-23-08 10:22:00 Test Item Value Reference Range Interpretation Comments Monocytes # (test code 0.5 See_Comment [Aut omated message] The = Monocytes #) system which generated this result tra nsmitted reference range : <=0.8. The reference r leo was not used to int erpret this result as normal/abnormal . [facility] CenterCARD[facility] GZDTURW3933-26-45 10:22:00 Test Item Value Reference Range Interpretation Comments BNP (test code = BNP) 526 [facility] CenterCHEM [id number] 10:22:00 Test Item Value Reference Range Interpretation Comments Magnesium Lvl (test code = Magnesium 2.1 1.8-2.4 Lvl) [facility]2016-12-26 10:22:00 Test Item Value Reference Range Interpretation Comments Glucose Lvl (test code = Glucose Lvl) 117 70-99 [facility]2016-12-26 10:22:00 Test Item Value Reference Range Interpretation Comments BUN (test code = BUN) 41 7-22 [facility]2016-12-26 10:22:00 Test Item Value Reference Range Interpretation Comments Creatinine Lvl (test code = Creatinine 2.00 0.50-1.40 Lvl) [facility]2016-12-26 10:22:00 Test Item Value Reference Range Interpretation Comments Calcium Lvl (test code = Calcium Lvl) 9.0 8.5-10.5 [facility]2016-12-26 10:22:00 Test Item Value Reference Range Interpretation Comments Chloride Lvl (test code = Chloride Lvl) 102 95-109 [facility]2016-12-26 10:22:00 Test Item Value Reference Range Interpretation Comments CO2 (test code = CO2) 33 24-32 [facility]2016-12-26 10:22:00 Test Item Value Reference Range Interpretation Comments Sodium Lvl (test code = Sodium Lvl) 144 135-145 [facility]2016-12-26 10:22:00 Test Item Value Reference Range Interpretation Comments Potassium Lvl (test code = Potassium 4.0 3.5-5.1 Lvl) [facility]2016-12-26 10:22:00 Test Item Value Reference Range Interpretation Comments eGFR (test code = eGFR) 32 [facility]2016-12-26 10:22:00 Test Item Value Reference Range Interpretation Comments AGAP (test code = AGAP) 13.0 10.0-20.0 [facility]2016-12-26 10:22:00 Test Item Value Reference Range Interpretation Comments Phosphorus (test code = Phosphorus) 4.6 2.5-4.5 [facility] [facility]fulanxMNHRKODDFV6302[facility]:00 Test Item Value Reference Range Interpretation Comments RBC (test code = RBC) 3.68 4.20-5.40 [facility]anoNsttmrfTYKMQJWWLJ9830-84-57 10:22:00 Test Item Value Reference Range Interpretation Comments Hgb (test code = Hgb) 9.9 12.0-16.0 [facility]anoQbpcazuZDKLMSHPBE7896-31-01 10:22:00 Test Item Value Reference Range Interpretation Comments MCH (test code = MCH) 26.8 pg 27.0-31.0 [facility]anoPjtwuqdEJJXKPYTIK2209-99-50 10:22:00 Test Item Value Reference Range Interpretation Comments MCHC (test code = MCHC) 34.2 32.0-36.0 [facility]anoVuhxvbcAOZMMWCEUJ4509-15-25 10:22:00 Test Item Value Reference Range Interpretation Comments MCV (test code = MCV) 78.3 80.0-98.0 [facility]anoVmuedndZTBIXMXORT1836-98-07 10:22:00 Test Item Value Reference Range Interpretation Comments Hct (test code = Hct) 28.8 36.0-48.0 [facility]anoLygehgiFSKZBDZFUO1717-18-61 10:22:00 Test Item Value Reference Range Interpretation Comments Platelet (test code = Platelet) 191 133-450 [facility]anoSdoanopBVQLSEZTQF1503-16-06 10:22:00 Test Item Value Reference Range Interpretation Comments MPV (test code = MPV) 9.5 7.4-10.4 [facility]anoCmfnbkbCSAGSUTMRI9289-17-62 10:22:00 Test Item Value Reference Range Interpretation Comments RDW (test code = RDW) 15.3 11.5-14.5 [facility]anoJukitxmLDCKWIPPKL5795-67-50 10:22:00 Test Item Value Reference Range Interpretation Comments WBC (test code = WBC) 5.6 3.7-10.4 [facility]anoUmegsugBMIYZLBVRF1556-82-63 10:22:00 Test Item Value Reference Range Interpretation Comments Eosinophils # (test code 0.5 See_Comment [A utomated message] The = Eosinophils #) system whic h generated this result tra nsmitted reference range : <=0.5. The reference r leo was not used to int erpret this result as normal/abnormal . [facility]anoHghkmmrOQPAMONFAV1771-96-46 10:22:00 Test Item Value Reference Range Interpretation Comments Microcyte (test code = 1+ *ABN*(06/15/16 Microcyte) 4:22 AM) [facility]anoUvwwslhLVLPYSHTAN7157-89-53 10:22:00 Test Item Value Reference Range Interpretation Comments Basophils # (test code 0.1 See_Comment [Aut omated message] The = Basophils #) system which generated this result tra nsmitted reference range : <=0.2. The reference r leo was not used to int erpret this result as normal/abnormal . [facility]anoAaqewieVROVHHFGDB7326-35-65 10:22:00 Test Item Value Reference Range Interpretation Comments Lymphocytes (test code = Lymphocytes) 33.5 20.0-40.0 [facility]anoYadmqopOJWJMLSYHU6441-90-89 10:22:00 Test Item Value Reference Range Interpretation Comments Segs (test code = Segs) 47.6 45.0-75.0 [facility]anoHslhfwtSXABCJOBRN2574-63-60 10:22:00 Test Item Value Reference Range Interpretation Comments Monocytes (test code = Monocytes) 8.4 2.0-12.0 [facility]anoEqpvlbjNBQFMZPXDW9328-18-88 10:22:00 Test Item Value Reference Range Interpretation Comments Eosinophils (test code = 9.4 See_Comment [A utomated message] The Eosinophils) system which ge nerated this result tra nsmitted reference range : <=4.0. The reference r leo was not used to int erpret this result as normal/abnormal . [facility]anoNmrpbyfSBCGAXLUBO2698-79-09 10:22:00 Test Item Value Reference Range Interpretation Comments Segs-Bands # (test code = Segs-Bands #) 2.6 1.5-8.1 [facility]anoRvbwwbqTEXXVBOHHB5477-37-77 10:22:00 Test Item Value Reference Range Interpretation Comments Lymphocytes # (test code = Lymphocytes 1.9 1.0-5.5 #) [facility]anoUjlcqmsEITRVUOCSS2844-39-70 10:22:00 Test Item Value Reference Range Interpretation Comments Basophils (test code = 1.1 See_Comment [Aut omated message] The Basophils) system which ge nerated this result tra nsmitted reference range : <=1.0. The reference r leo was not used to int erpret this result as normal/abnormal . [facility]anoEvshhurKIJGNEBLKE2502-73-69 10:22:00 Test Item Value Reference Range Interpretation Comments Monocytes # (test code 0.5 See_Comment [Aut omated message] The = Monocytes #) system which generated this result tra nsmitted reference range : <=0.8. The reference r leo was not used to int erpret this result as normal/abnormal . [facility] IBFHYUY3173-19-33 10:22:00 Test Item Value Reference Range Interpretation Comments BNP (test code = BNP) 526 [facility]2016-12-26 10:22:00 Test Item Value Reference Range Interpretation Comments Magnesium Lvl (test code = Magnesium 2.1 1.8-2.4 Lvl) [facility]2016-12-26 10:22:00 Test Item Value Reference Range Interpretation Comments Glucose Lvl (test code = Glucose Lvl) 117 70-99 [facility]2016-12-26 10:22:00 Test Item Value Reference Range Interpretation Comments BUN (test code = BUN) 41 7-22 [facility]2016-12-26 10:22:00 Test Item Value Reference Range Interpretation Comments Creatinine Lvl (test code = Creatinine 2.00 0.50-1.40 Lvl) [facility]2016-12-26 10:22:00 Test Item Value Reference Range Interpretation Comments Calcium Lvl (test code = Calcium Lvl) 9.0 8.5-10.5 [facility]2016-12-26 10:22:00 Test Item Value Reference Range Interpretation Comments Chloride Lvl (test code = Chloride Lvl) 102 95-109 [facility]2016-12-26 10:22:00 Test Item Value Reference Range Interpretation Comments CO2 (test code = CO2) 33 24-32 [facility]2016-12-26 10:22:00 Test Item Value Reference Range Interpretation Comments Sodium Lvl (test code = Sodium Lvl) 144 135-145 [facility]2016-12-26 10:22:00 Test Item Value Reference Range Interpretation Comments Potassium Lvl (test code = Potassium 4.0 3.5-5.1 Lvl) [facility]2016-12-26 10:22:00 Test Item Value Reference Range Interpretation Comments eGFR (test code = eGFR) 32 [facility]2016-12-26 10:22:00 Test Item Value Reference Range Interpretation Comments AGAP (test code = AGAP) 13.0 10.0-20.0 [facility]2016-12-26 10:22:00 Test Item Value Reference Range Interpretation Comments Phosphorus (test code = Phosphorus) 4.6 2.5-4.5 [facility]anoEbhzmlqYHMFMMWUPY6204-44-48 10:22:00 Test Item Value Reference Range Interpretation Comments RBC (test code = RBC) 3.68 4.20-5.40 [facility]anoLkbgrizYAWYLUITKH9620-25-93 10:22:00 Test Item Value Reference Range Interpretation Comments Hgb (test code = Hgb) 9.9 12.0-16.0 [facility]anoAwbmihkZRPVKWBDRG7377-25-99 10:22:00 Test Item Value Reference Range Interpretation Comments MCH (test code = MCH) 26.8 pg 27.0-31.0 [facility]anoJoxsdhaRJCEGBKKKW6763-29-22 10:22:00 Test Item Value Reference Range Interpretation Comments MCHC (test code = MCHC) 34.2 32.0-36.0 [facility]anoVfsxgkzTIZUYVSOGG8359-16-25 10:22:00 Test Item Value Reference Range Interpretation Comments MCV (test code = MCV) 78.3 80.0-98.0 [facility]anoXnjnlptQXDQXQKGWU6106-58-81 10:22:00 Test Item Value Reference Range Interpretation Comments Hct (test code = Hct) 28.8 36.0-48.0 [facility]anoUsptojiVTRDZOTUMW5905-69-68 10:22:00 Test Item Value Reference Range Interpretation Comments Platelet (test code = Platelet) 191 133-450 [facility]anoWcurnonMQIAQTURXW5016-90-55 10:22:00 Test Item Value Reference Range Interpretation Comments MPV (test code = MPV) 9.5 7.4-10.4 [facility]anoAasldibSEIBTBYTWF1879-75-63 10:22:00 Test Item Value Reference Range Interpretation Comments RDW (test code = RDW) 15.3 11.5-14.5 [facility]anoKnldzlcQCMHDSINIX5004-28-81 10:22:00 Test Item Value Reference Range Interpretation Comments WBC (test code = WBC) 5.6 3.7-10.4 [facility]anoBvnzhglCYTRFTGJIE9688-68-93 10:22:00 Test Item Value Reference Range Interpretation Comments Eosinophils # (test code 0.5 See_Comment [A utomated message] The = Eosinophils #) system whic h generated this result tra nsmitted reference range : <=0.5. The reference r leo was not used to int erpret this result as normal/abnormal . [facility]anoDocbexnXTZIXRQKGW6585-90-98 10:22:00 Test Item Value Reference Range Interpretation Comments Microcyte (test code = 1+ *ABN*(06/15/16 Microcyte) 4:22 AM) [facility]anoZjxpcfrRLAOBIXFUY1273-60-57 10:22:00 Test Item Value Reference Range Interpretation Comments Basophils # (test code 0.1 See_Comment [Aut omated message] The = Basophils #) system which generated this result tra nsmitted reference range : <=0.2. The reference r leo was not used to int erpret this result as normal/abnormal . [facility]anoBeedhpoAUTOKZTXRY9297-77-84 10:22:00 Test Item Value Reference Range Interpretation Comments Lymphocytes (test code = Lymphocytes) 33.5 20.0-40.0 [facility]anoAerhpzuUVENXVXBZD7121-54-07 10:22:00 Test Item Value Reference Range Interpretation Comments Segs (test code = Segs) 47.6 45.0-75.0 [facility]anoRyxcaynRNNECERYCL8756-19-49 10:22:00 Test Item Value Reference Range Interpretation Comments Monocytes (test code = Monocytes) 8.4 2.0-12.0 [facility]anoZsdspzhXERWJMXGVL4257-88-19 10:22:00 Test Item Value Reference Range Interpretation Comments Eosinophils (test code = 9.4 See_Comment [A utomated message] The Eosinophils) system which ge nerated this result tra nsmitted reference range : <=4.0. The reference r leo was not used to int erpret this result as normal/abnormal . [facility]anoGuamidnKILTOWHBQR2090-64-48 10:22:00 Test Item Value Reference Range Interpretation Comments Segs-Bands # (test code = Segs-Bands #) 2.6 1.5-8.1 [facility]anoOuqypzwUXLWLGGTAR3322-45-29 10:22:00 Test Item Value Reference Range Interpretation Comments Lymphocytes # (test code = Lymphocytes 1.9 1.0-5.5 #) [facility]anoGrkitcvGLNEITUNQY9116-17-88 10:22:00 Test Item Value Reference Range Interpretation Comments Basophils (test code = 1.1 See_Comment [Aut omated message] The Basophils) system which ge nerated this result tra nsmitted reference range : <=1.0. The reference r leo was not used to int erpret this result as normal/abnormal . [facility]anoZxtidjwCYVDFUZSAG4291-77-87 10:22:00 Test Item Value Reference Range Interpretation Comments Monocytes # (test code 0.5 See_Comment [Aut omated message] The = Monocytes #) system which generated this result tra nsmitted reference range : <=0.8. The reference r leo was not used to int erpret this result as normal/abnormal . [facility] KTVMXEO7782-53-08 10:22:00 Test Item Value Reference Range Interpretation Comments BNP (test code = BNP) 526 [facility]2016-12-26 10:22:00 Test Item Value Reference Range Interpretation Comments Magnesium Lvl (test code = Magnesium 2.1 1.8-2.4 Lvl) [facility]2016-12-26 10:22:00 Test Item Value Reference Range Interpretation Comments Glucose Lvl (test code = Glucose Lvl) 117 70-99 [facility]2016-12-26 10:22:00 Test Item Value Reference Range Interpretation Comments BUN (test code = BUN) 41 7-22 [facility]2016-12-26 10:22:00 Test Item Value Reference Range Interpretation Comments Creatinine Lvl (test code = Creatinine 2.00 0.50-1.40 Lvl) [facility]2016-12-26 10:22:00 Test Item Value Reference Range Interpretation Comments Calcium Lvl (test code = Calcium Lvl) 9.0 8.5-10.5 [facility]2016-12-26 10:22:00 Test Item Value Reference Range Interpretation Comments Chloride Lvl (test code = Chloride Lvl) 102 95-109 [facility]2016-12-26 10:22:00 Test Item Value Reference Range Interpretation Comments CO2 (test code = CO2) 33 24-32 [facility]2016-12-26 10:22:00 Test Item Value Reference Range Interpretation Comments Sodium Lvl (test code = Sodium Lvl) 144 135-145 [facility]2016-12-26 10:22:00 Test Item Value Reference Range Interpretation Comments Potassium Lvl (test code = Potassium 4.0 3.5-5.1 Lvl) [facility]2016-12-26 10:22:00 Test Item Value Reference Range Interpretation Comments eGFR (test code = eGFR) 32 [facility]2016-12-26 10:22:00 Test Item Value Reference Range Interpretation Comments AGAP (test code = AGAP) 13.0 10.0-20.0 [facility]2016-12-26 10:22:00 Test Item Value Reference Range Interpretation Comments Phosphorus (test code = Phosphorus) 4.6 2.5-4.5 [facility]anoMnnuqkxVGGGOFUCGH1274-90-91 10:22:00 Test Item Value Reference Range Interpretation Comments RBC (test code = RBC) 3.68 4.20-5.40 [facility]anoPombodgUXSCOHKDPB9902-33-74 10:22:00 Test Item Value Reference Range Interpretation Comments Hgb (test code = Hgb) 9.9 12.0-16.0 [facility]anoDopmxivWGIRPPTRBK1396-07-04 10:22:00 Test Item Value Reference Range Interpretation Comments MCH (test code = MCH) 26.8 pg 27.0-31.0 [facility]anoQdlixumCTZMKMQGDF9163-28-52 10:22:00 Test Item Value Reference Range Interpretation Comments MCHC (test code = MCHC) 34.2 32.0-36.0 [facility]anoPldcyqxFPGRSFUMVI8156-75-28 10:22:00 Test Item Value Reference Range Interpretation Comments MCV (test code = MCV) 78.3 80.0-98.0 [facility]anoCovijaaDAMCNPPCMQ7104-75-40 10:22:00 Test Item Value Reference Range Interpretation Comments Hct (test code = Hct) 28.8 36.0-48.0 [facility]anoJkonhxrMARTDQXRHQ8058-13-41 10:22:00 Test Item Value Reference Range Interpretation Comments Platelet (test code = Platelet) 191 133-450 [facility]anoHmqekgmXFXTTUAROG6202-41-79 10:22:00 Test Item Value Reference Range Interpretation Comments MPV (test code = MPV) 9.5 7.4-10.4 [facility]anoYzjsechYBNKQQBKBL0301-59-93 10:22:00 Test Item Value Reference Range Interpretation Comments RDW (test code = RDW) 15.3 11.5-14.5 [facility]anoWkkwgekUAPADGUDCT5597-08-63 10:22:00 Test Item Value Reference Range Interpretation Comments WBC (test code = WBC) 5.6 3.7-10.4 [facility]anoKxowfrmMELBVWEKYL8783-38-82 10:22:00 Test Item Value Reference Range Interpretation Comments Eosinophils # (test code 0.5 See_Comment [A utomated message] The = Eosinophils #) system whic h generated this result tra nsmitted reference range : <=0.5. The reference r leo was not used to int erpret this result as normal/abnormal . [facility]anoZtmocolJESKAAFMHA4888-76-23 10:22:00 Test Item Value Reference Range Interpretation Comments Microcyte (test code = 1+ *ABN*(06/15/16 Microcyte) 4:22 AM) [facility]anoTtyiiyeNDNETUDXGC4018-38-44 10:22:00 Test Item Value Reference Range Interpretation Comments Basophils # (test code 0.1 See_Comment [Aut omated message] The = Basophils #) system which generated this result tra nsmitted reference range : <=0.2. The reference r leo was not used to int erpret this result as normal/abnormal . [facility]anoUpqzzipCIWBMJSWCV9661-64-27 10:22:00 Test Item Value Reference Range Interpretation Comments Lymphocytes (test code = Lymphocytes) 33.5 20.0-40.0 [facility]anoSevejumQGFDRZZATD7331-54-54 10:22:00 Test Item Value Reference Range Interpretation Comments Segs (test code = Segs) 47.6 45.0-75.0 [facility]anoRepuksmWBXNMQZMRN1602-26-70 10:22:00 Test Item Value Reference Range Interpretation Comments Monocytes (test code = Monocytes) 8.4 2.0-12.0 [facility]anoQtvjmwoJLTXYHCQHI5542-81-02 10:22:00 Test Item Value Reference Range Interpretation Comments Eosinophils (test code = 9.4 See_Comment [A utomated message] The Eosinophils) system which ge nerated this result tra nsmitted reference range : <=4.0. The reference r leo was not used to int erpret this result as normal/abnormal . [facility]anoItphsegJNSEONFBYH4426-67-41 10:22:00 Test Item Value Reference Range Interpretation Comments Segs-Bands # (test code = Segs-Bands #) 2.6 1.5-8.1 [facility]anoCbmrjknYLOERWSNWI9936-25-69 10:22:00 Test Item Value Reference Range Interpretation Comments Lymphocytes # (test code = Lymphocytes 1.9 1.0-5.5 #) [place] 368086-12-26 10:22:00 Test Item Value Reference Range Interpretation Comments Basophils (test code = 1.1 See_Comment [Aut omated message] The Basophils) system which ge nerated this result tra nsmitted reference range : <=1.0. The reference r leo was not used to int erpret this result as normal/abnormal . [facility]anoHwyyhccZOHXQUBCNS3524-94-28 10:22:00 Test Item Value Reference Range Interpretation Comments Monocytes # (test code 0.5 See_Comment [Aut omated message] The = Monocytes #) system which generated this result tra nsmitted reference range : <=0.8. The reference r leo was not used to int erpret this result as normal/abnormal . [facility]2016-12-25 11:03:00 Test Item Value Reference Range Interpretation Comments Phosphorus (test code = Phosphorus) 4.8 2.5-4.5 [facility]2016-12-25 11:03:00 Test Item Value Reference Range Interpretation Comments Magnesium Lvl (test code = Magnesium 2.0 1.8-2.4 Lvl) [facility]2016-12-25 11:03:00 Test Item Value Reference Range Interpretation Comments eGFR (test code = eGFR) 32 [facility]2016-12-25 11:03:00 Test Item Value Reference Range Interpretation Comments Chloride Lvl (test code = Chloride Lvl) 101 95-109 [facility]2016-12-25 11:03:00 Test Item Value Reference Range Interpretation Comments Potassium Lvl (test code = Potassium 4.4 3.5-5.1 Lvl) [facility]2016-12-25 11:03:00 Test Item Value Reference Range Interpretation Comments BUN (test code = BUN) 37 7-22 [facility]2016-12-25 11:03:00 Test Item Value Reference Range Interpretation Comments Glucose Lvl (test code = Glucose Lvl) 119 70-99 [facility]2016-12-25 11:03:00 Test Item Value Reference Range Interpretation Comments Creatinine Lvl (test code = Creatinine 2.00 0.50-1.40 Lvl) [facility]2016-12-25 11:03:00 Test Item Value Reference Range Interpretation Comments Sodium Lvl (test code = Sodium Lvl) 142 135-145 [facility]2016-12-25 11:03:00 Test Item Value Reference Range Interpretation Comments Calcium Lvl (test code = Calcium Lvl) 8.7 8.5-10.5 [facility]2016-12-25 11:03:00 Test Item Value Reference Range Interpretation Comments CO2 (test code = CO2) 32 24-32 [facility]2016-12-25 11:03:00 Test Item Value Reference Range Interpretation Comments AGAP (test code = AGAP) 13.4 10.0-20.0 [facility]anoFgpwrfsQPUHEATMNY2452-04-19 11:03:00 Test Item Value Reference Range Interpretation Comments Eosinophils (test code = 10.3 See_Comment [A utomated message] The Eosinophils) system which ge nerated this result tra nsmitted reference range : <=4.0. The reference r leo was not used to int erpret this result as normal/abnormal . [facility]anoElkvmfwBOWUMDOEBC4674-52-64 11:03:00 Test Item Value Reference Range Interpretation Comments Basophils # (test code 0.1 See_Comment [Aut omated message] The = Basophils #) system which generated this result tra nsmitted reference range : <=0.2. The reference r leo was not used to int erpret this result as normal/abnormal . [facility]anoMgwihkiKRLBHEPUTD5600-37-24 11:03:00 Test Item Value Reference Range Interpretation Comments Eosinophils # (test code 0.5 See_Comment [A utomated message] The = Eosinophils #) system whic h generated this result tra nsmitted reference range : <=0.5. The reference r leo was not used to int erpret this result as normal/abnormal . [facility]anoTxtdmvqUHMNGBKBBT0723-25-59 11:03:00 Test Item Value Reference Range Interpretation Comments Monocytes # (test code 0.5 See_Comment [Aut omated message] The = Monocytes #) system which generated this result tra nsmitted reference range : <=0.8. The reference r leo was not used to int erpret this result as normal/abnormal . [facility]anoKvsgyfiQCFZWCDYLN4053-94-20 11:03:00 Test Item Value Reference Range Interpretation Comments Segs-Bands # (test code = Segs-Bands #) 2.1 1.5-8.1 [facility]anoRfmpjdgZCBCGPCGHX1661-50-97 11:03:00 Test Item Value Reference Range Interpretation Comments Basophils (test code = 1.2 See_Comment [Aut omated message] The Basophils) system which ge nerated this result tra nsmitted reference range : <=1.0. The reference r leo was not used to int erpret this result as normal/abnormal . [facility]anoUtdahqiSKRDRMPOAO3978-92-86 11:03:00 Test Item Value Reference Range Interpretation Comments Lymphocytes # (test code = Lymphocytes 1.9 1.0-5.5 #) [facility]anoFhrkbguZDLRKXMSIK8739-48-25 11:03:00 Test Item Value Reference Range Interpretation Comments Segs (test code = Segs) 42.5 45.0-75.0 [facility]anoEeswvfgLYDRDENMEU6263-93-29 11:03:00 Test Item Value Reference Range Interpretation Comments Lymphocytes (test code = Lymphocytes) 37.0 20.0-40.0 [facility]anoUjltkleYLWFUEJHJG9578-09-68 11:03:00 Test Item Value Reference Range Interpretation Comments Monocytes (test code = Monocytes) 9.0 2.0-12.0 [facility]anoOtqkphhLYMKEYNGKK7000-83-32 11:03:00 Test Item Value Reference Range Interpretation Comments MPV (test code = MPV) 9.8 7.4-10.4 [facility]anoGkjgtjwIUFBEBMJXW8976-10-29 11:03:00 Test Item Value Reference Range Interpretation Comments WBC (test code = WBC) 5.0 3.7-10.4 [facility]anoKhpiqzbQJUIJKAIAT9694-43-01 11:03:00 Test Item Value Reference Range Interpretation Comments RBC (test code = RBC) 3.57 4.20-5.40 [facility]anoAovfkquSWQRDZAHAH1489-10-25 11:03:00 Test Item Value Reference Range Interpretation Comments Hgb (test code = Hgb) 9.4 12.0-16.0 [facility]anoCxyyfdlEBHZLWMLEX9324-44-60 11:03:00 Test Item Value Reference Range Interpretation Comments Hct (test code = Hct) 28.5 36.0-48.0 [facility]anoHncfttqLRWXWCEKXK3350-58-89 11:03:00 Test Item Value Reference Range Interpretation Comments Platelet (test code = Platelet) 183 133-450 [facility]anoDkvtfycRDSWLRHMVL1877-25-03 11:03:00 Test Item Value Reference Range Interpretation Comments MCV (test code = MCV) 79.9 80.0-98.0 [facility]anoXmejbmqEBHYRCMFKS8803-09-98 11:03:00 Test Item Value Reference Range Interpretation Comments MCH (test code = MCH) 26.3 pg 27.0-31.0 [facility]anoObnwmwzBQKGNHMBSF2996-59-73 11:03:00 Test Item Value Reference Range Interpretation Comments MCHC (test code = MCHC) 33.0 32.0-36.0 [facility]anoHhoqfubWKCCQOXGBK0840-79-42 11:03:00 Test Item Value Reference Range Interpretation Comments RDW (test code = RDW) 15.9 11.5-14.5 [facility]2016-12-25 11:03:00 Test Item Value Reference Range Interpretation Comments Phosphorus (test code = Phosphorus) 4.8 2.5-4.5 [facility]2016-12-25 11:03:00 Test Item Value Reference Range Interpretation Comments Magnesium Lvl (test code = Magnesium 2.0 1.8-2.4 Lvl) [facility]2016-12-25 11:03:00 Test Item Value Reference Range Interpretation Comments eGFR (test code = eGFR) 32 [facility]2016-12-25 11:03:00 Test Item Value Reference Range Interpretation Comments Chloride Lvl (test code = Chloride Lvl) 101 95-109 [facility]2016-12-25 11:03:00 Test Item Value Reference Range Interpretation Comments Potassium Lvl (test code = Potassium 4.4 3.5-5.1 Lvl) [facility]2016-12-25 11:03:00 Test Item Value Reference Range Interpretation Comments BUN (test code = BUN) 37 7-22 [facility]2016-12-25 11:03:00 Test Item Value Reference Range Interpretation Comments Glucose Lvl (test code = Glucose Lvl) 119 70-99 [facility]2016-12-25 11:03:00 Test Item Value Reference Range Interpretation Comments Creatinine Lvl (test code = Creatinine 2.00 0.50-1.40 Lvl) [facility]2016-12-25 11:03:00 Test Item Value Reference Range Interpretation Comments Sodium Lvl (test code = Sodium Lvl) 142 135-145 [facility]2016-12-25 11:03:00 Test Item Value Reference Range Interpretation Comments Calcium Lvl (test code = Calcium Lvl) 8.7 8.5-10.5 [facility]2016-12-25 11:03:00 Test Item Value Reference Range Interpretation Comments CO2 (test code = CO2) 32 24-32 [facility]2016-12-25 11:03:00 Test Item Value Reference Range Interpretation Comments AGAP (test code = AGAP) 13.4 10.0-20.0 [facility]EdcwgjrQLPRSLKATV4904-64-70 11:03:00 Test Item Value Reference Range Interpretation Comments Eosinophils (test code = 10.3 See_Comment [A utomated message] The Eosinophils) system which ge nerated this result tra nsmitted reference range : <=4.0. The reference r leo was not used to int erpret this result as normal/abnormal . [facility]anoGbmdvwaIOYVVVZHMM4079-78-73 11:03:00 Test Item Value Reference Range Interpretation Comments Basophils # (test code 0.1 See_Comment [Aut omated message] The = Basophils #) system which generated this result tra nsmitted reference range : <=0.2. The reference r leo was not used to int erpret this result as normal/abnormal . [facility]anoBvuzxhgWCVNFKZFJW1220-59-22 11:03:00 Test Item Value Reference Range Interpretation Comments Eosinophils # (test code 0.5 See_Comment [A utomated message] The = Eosinophils #) system whic h generated this result tra nsmitted reference range : <=0.5. The reference r leo was not used to int erpret this result as normal/abnormal . [facility]anoRzitzvyCXBHVAPEJI2352-08-24 11:03:00 Test Item Value Reference Range Interpretation Comments Monocytes # (test code 0.5 See_Comment [Aut omated message] The = Monocytes #) system which generated this result tra nsmitted reference range : <=0.8. The reference r loe was not used to int erpret this result as normal/abnormal . [facility]anoNzqresmBQWLQHIHNV0405-49-88 11:03:00 Test Item Value Reference Range Interpretation Comments Segs-Bands # (test code = Segs-Bands #) 2.1 1.5-8.1 [facility]anoFuzjblfZUVRUIYAPK6671-93-41 11:03:00 Test Item Value Reference Range Interpretation Comments Basophils (test code = 1.2 See_Comment [Aut omated message] The Basophils) system which ge nerated this result tra nsmitted reference range : <=1.0. The reference r leo was not used to int erpret this result as normal/abnormal . [facility]anoQsksajoGQSVTCGWQE7852-91-47 11:03:00 Test Item Value Reference Range Interpretation Comments Lymphocytes # (test code = Lymphocytes 1.9 1.0-5.5 #) [facility]anoYrtrmruJICBPWDQXJ4429-40-48 11:03:00 Test Item Value Reference Range Interpretation Comments Segs (test code = Segs) 42.5 45.0-75.0 [facility]anoGunxntkXRMNRKUCBU1849-08-63 11:03:00 Test Item Value Reference Range Interpretation Comments Lymphocytes (test code = Lymphocytes) 37.0 20.0-40.0 [facility]anoGyasshxYQKPUUXNQT9284-45-97 11:03:00 Test Item Value Reference Range Interpretation Comments Monocytes (test code = Monocytes) 9.0 2.0-12.0 [facility]anoDjygglrRBMQTWSIOJ9397-68-07 11:03:00 Test Item Value Reference Range Interpretation Comments MPV (test code = MPV) 9.8 7.4-10.4 [facility]anoLaleokxVOSHVFWACE2701-46-60 11:03:00 Test Item Value Reference Range Interpretation Comments WBC (test code = WBC) 5.0 3.7-10.4 [facility]anoEmitmuxHIBRIWJKMZ8511-63-83 11:03:00 Test Item Value Reference Range Interpretation Comments RBC (test code = RBC) 3.57 4.20-5.40 [facility]anoFnvefijHTYVZXAEFX0011-36-74 11:03:00 Test Item Value Reference Range Interpretation Comments Hgb (test code = Hgb) 9.4 12.0-16.0 [facility]anoMbhxdbkGBAOVGJEBX8810-55-11 11:03:00 Test Item Value Reference Range Interpretation Comments Hct (test code = Hct) 28.5 36.0-48.0 [facility]anoDtsgtalDBOUUEPHFZ3868-73-05 11:03:00 Test Item Value Reference Range Interpretation Comments Platelet (test code = Platelet) 183 133-450 [facility]anoEhguzsyEXDDUKIUGK2574-12-64 11:03:00 Test Item Value Reference Range Interpretation Comments MCV (test code = MCV) 79.9 80.0-98.0 [facility]anoTwdmatiTDSNWJCHNP0640-08-47 11:03:00 Test Item Value Reference Range Interpretation Comments MCH (test code = MCH) 26.3 pg 27.0-31.0 [facility]anoDzaqbvmTMEFAKJTDM3195-80-59 11:03:00 Test Item Value Reference Range Interpretation Comments MCHC (test code = MCHC) 33.0 32.0-36.0 [facility]anoSndwzzzNSMMWTERGW5517-32-67 11:03:00 Test Item Value Reference Range Interpretation Comments RDW (test code = RDW) 15.9 11.5-14.5 [facility]2016-12-25 11:03:00 Test Item Value Reference Range Interpretation Comments Phosphorus (test code = Phosphorus) 4.8 2.5-4.5 [facility]2016-12-25 11:03:00 Test Item Value Reference Range Interpretation Comments Magnesium Lvl (test code = Magnesium 2.0 1.8-2.4 Lvl) [facility]2016-12-25 11:03:00 Test Item Value Reference Range Interpretation Comments eGFR (test code = eGFR) 32 [facility]2016-12-25 11:03:00 Test Item Value Reference Range Interpretation Comments Chloride Lvl (test code = Chloride Lvl) 101 95-109 [facility]2016-12-25 11:03:00 Test Item Value Reference Range Interpretation Comments Potassium Lvl (test code = Potassium 4.4 3.5-5.1 Lvl) [facility]2016-12-25 11:03:00 Test Item Value Reference Range Interpretation Comments BUN (test code = BUN) 37 7-22 [facility]2016-12-25 11:03:00 Test Item Value Reference Range Interpretation Comments Glucose Lvl (test code = Glucose Lvl) 119 70-99 [facility]2016-12-25 11:03:00 Test Item Value Reference Range Interpretation Comments Creatinine Lvl (test code = Creatinine 2.00 0.50-1.40 Lvl) [facility]2016-12-25 11:03:00 Test Item Value Reference Range Interpretation Comments Sodium Lvl (test code = Sodium Lvl) 142 135-145 [place] 159636-12-25 11:03:00 Test Item Value Reference Range Interpretation Comments Calcium Lvl (test code = Calcium Lvl) 8.7 8.5-10.5 [facility]2016-12-25 11:03:00 Test Item Value Reference Range Interpretation Comments CO2 (test code = CO2) 32 24-32 [facility]2016-12-25 11:03:00 Test Item Value Reference Range Interpretation Comments AGAP (test code = AGAP) 13.4 10.0-20.0 [facility]anoIqvkzkjMAOZGBTPJR0942-04-09 11:03:00 Test Item Value Reference Range Interpretation Comments Eosinophils (test code = 10.3 See_Comment [A utomated message] The Eosinophils) system which ge nerated this result tra nsmitted reference range : <=4.0. The reference r leo was not used to int erpret this result as normal/abnormal . [facility]anoZbdnwpxPLORZJXMMA0261-26-26 11:03:00 Test Item Value Reference Range Interpretation Comments Basophils # (test code 0.1 See_Comment [Aut omated message] The = Basophils #) system which generated this result tra nsmitted reference range : <=0.2. The reference r leo was not used to int erpret this result as normal/abnormal . [facility]anoLhstfwgZCOIULVQHG4685-47-31 11:03:00 Test Item Value Reference Range Interpretation Comments Eosinophils # (test code 0.5 See_Comment [A utomated message] The = Eosinophils #) system whic h generated this result tra nsmitted reference range : <=0.5. The reference r leo was not used to int erpret this result as normal/abnormal . [facility]anoUwgsvksLJRGSZGXOV8573-98-03 11:03:00 Test Item Value Reference Range Interpretation Comments Monocytes # (test code 0.5 See_Comment [Aut omated message] The = Monocytes #) system which generated this result tra nsmitted reference range : <=0.8. The reference r leo was not used to int erpret this result as normal/abnormal . [facility]anoPpggtetNSJMNOPUWE2020-61-95 11:03:00 Test Item Value Reference Range Interpretation Comments Segs-Bands # (test code = Segs-Bands #) 2.1 1.5-8.1 [place] [address]-12-25 11:03:00 Test Item Value Reference Range Interpretation Comments Basophils (test code = 1.2 See_Comment [Aut omated message] The Basophils) system which ge nerated this result tra nsmitted reference range : <=1.0. The reference r leo was not used to int erpret this result as normal/abnormal . [facility]anoKakpulnDDHSIIYWBY5041-59-69 11:03:00 Test Item Value Reference Range Interpretation Comments Lymphocytes # (test code = Lymphocytes 1.9 1.0-5.5 #) [facility]anoUzsxnihYJKJHNICMS8076-62-54 11:03:00 Test Item Value Reference Range Interpretation Comments Segs (test code = Segs) 42.5 45.0-75.0 [facility]anoHoqsdfaUYUFZYUNXX3479-45-55 11:03:00 Test Item Value Reference Range Interpretation Comments Lymphocytes (test code = Lymphocytes) 37.0 20.0-40.0 [facility]anoKvtppahYHNJCSKECG8761-61-74 11:03:00 Test Item Value Reference Range Interpretation Comments Monocytes (test code = Monocytes) 9.0 2.0-12.0 [facility]anoBgildbvVHSADLLAJA2994-88-91 11:03:00 Test Item Value Reference Range Interpretation Comments MPV (test code = MPV) 9.8 7.4-10.4 [facility]anoLtufpuwJQAZTWOPCY7165-06-32 11:03:00 Test Item Value Reference Range Interpretation Comments WBC (test code = WBC) 5.0 3.7-10.4 [facility]anoPofvfoaKYIEGVRMCB4566-97-29 11:03:00 Test Item Value Reference Range Interpretation Comments RBC (test code = RBC) 3.57 4.20-5.40 [facility]anoTqgnypzLSLLPFJJJF9768-46-06 11:03:00 Test Item Value Reference Range Interpretation Comments Hgb (test code = Hgb) 9.4 12.0-16.0 [facility]anoAupkxymGLCAGWDQYW3701-13-66 11:03:00 Test Item Value Reference Range Interpretation Comments Hct (test code = Hct) 28.5 36.0-48.0 [facility]anoOxwudarXLHOKCJAJB3879-80-76 11:03:00 Test Item Value Reference Range Interpretation Comments Platelet (test code = Platelet) 183 133-450 [facility]anoQmczaklIHSDNLWIVQ7462-39-19 11:03:00 Test Item Value Reference Range Interpretation Comments MCV (test code = MCV) 79.9 80.0-98.0 [facility]anoPupdmxqZQHUNYMRLC3732-09-55 11:03:00 Test Item Value Reference Range Interpretation Comments MCH (test code = MCH) 26.3 pg 27.0-31.0 [facility]anoLhikbopRZKUAPPDPO7992-94-79 11:03:00 Test Item Value Reference Range Interpretation Comments MCHC (test code = MCHC) 33.0 32.0-36.0 [facility]anoXokopkoSNTOLFVMGU3934-66-28 11:03:00 Test Item Value Reference Range Interpretation Comments RDW (test code = RDW) 15.9 11.5-14.5 [facility]2016-12-25 11:03:00 Test Item Value Reference Range Interpretation Comments Phosphorus (test code = Phosphorus) 4.8 2.5-4.5 [facility]2016-12-25 11:03:00 Test Item Value Reference Range Interpretation Comments Magnesium Lvl (test code = Magnesium 2.0 1.8-2.4 Lvl) [facility]2016-12-25 11:03:00 Test Item Value Reference Range Interpretation Comments eGFR (test code = eGFR) 32 [facility]2016-12-25 11:03:00 Test Item Value Reference Range Interpretation Comments Chloride Lvl (test code = Chloride Lvl) 101 95-109 [facility]2016-12-25 11:03:00 Test Item Value Reference Range Interpretation Comments Potassium Lvl (test code = Potassium 4.4 3.5-5.1 Lvl) [facility]2016-12-25 11:03:00 Test Item Value Reference Range Interpretation Comments BUN (test code = BUN) 37 7-22 [facility]2016-12-25 11:03:00 Test Item Value Reference Range Interpretation Comments Glucose Lvl (test code = Glucose Lvl) 119 70-99 [facility]2016-12-25 11:03:00 Test Item Value Reference Range Interpretation Comments Creatinine Lvl (test code = Creatinine 2.00 0.50-1.40 Lvl) [facility]2016-12-25 11:03:00 Test Item Value Reference Range Interpretation Comments Sodium Lvl (test code = Sodium Lvl) 142 135-145 [facility]2016-12-25 11:03:00 Test Item Value Reference Range Interpretation Comments Calcium Lvl (test code = Calcium Lvl) 8.7 8.5-10.5 [facility]2016-12-25 11:03:00 Test Item Value Reference Range Interpretation Comments CO2 (test code = CO2) 32 24-32 [facility]2016-12-25 11:03:00 Test Item Value Reference Range Interpretation Comments AGAP (test code = AGAP) 13.4 10.0-20.0 [place] 368086-12-25 11:03:00 Test Item Value Reference Range Interpretation Comments Eosinophils (test code = 10.3 See_Comment [A utomated message] The Eosinophils) system which ge nerated this result tra nsmitted reference range : <=4.0. The reference r leo was not used to int erpret this result as normal/abnormal . [facility]anoFkhjlloLGUOLYDYYW0413-93-02 11:03:00 Test Item Value Reference Range Interpretation Comments Basophils # (test code 0.1 See_Comment [Aut omated message] The = Basophils #) system which generated this result tra nsmitted reference range : <=0.2. The reference r leo was not used to int erpret this result as normal/abnormal . [facility]anoSfgiksaMSYMACAHBO3074-94-20 11:03:00 Test Item Value Reference Range Interpretation Comments Eosinophils # (test code 0.5 See_Comment [A utomated message] The = Eosinophils #) system whic h generated this result tra nsmitted reference range : <=0.5. The reference r leo was not used to int erpret this result as normal/abnormal . [facility]anoLabxveeDPBHJEKHNN7377-30-13 11:03:00 Test Item Value Reference Range Interpretation Comments Monocytes # (test code 0.5 See_Comment [Aut omated message] The = Monocytes #) system which generated this result tra nsmitted reference range : <=0.8. The reference r leo was not used to int erpret this result as normal/abnormal . [place] 368086-12-25 11:03:00 Test Item Value Reference Range Interpretation Comments Segs-Bands # (test code = Segs-Bands #) 2.1 1.5-8.1 [place] 368086-12-25 11:03:00 Test Item Value Reference Range Interpretation Comments Basophils (test code = 1.2 See_Comment [Aut omated message] The Basophils) system which ge nerated this result tra nsmitted reference range : <=1.0. The reference r leo was not used to int erpret this result as normal/abnormal . [facility]anoFthdszfYGIXAXGCLG1890-88-02 11:03:00 Test Item Value Reference Range Interpretation Comments Lymphocytes # (test code = Lymphocytes 1.9 1.0-5.5 #) [facility]anoVlafejfKJGSIOICBK4351-83-79 11:03:00 Test Item Value Reference Range Interpretation Comments Segs (test code = Segs) 42.5 45.0-75.0 [facility]anoVbgudouKLHCGGPRKW0515-82-27 11:03:00 Test Item Value Reference Range Interpretation Comments Lymphocytes (test code = Lymphocytes) 37.0 20.0-40.0 [facility]anoPnlgueaHHTTRHUMYY8522-92-05 11:03:00 Test Item Value Reference Range Interpretation Comments Monocytes (test code = Monocytes) 9.0 2.0-12.0 [facility]anoQzbpocbDASWCJZNKH1541-02-71 11:03:00 Test Item Value Reference Range Interpretation Comments MPV (test code = MPV) 9.8 7.4-10.4 [facility]anoLebudfdWQHFQBXSFE0104-16-29 11:03:00 Test Item Value Reference Range Interpretation Comments WBC (test code = WBC) 5.0 3.7-10.4 [facility]anoHadlqcwFRVSAAKCES8975-48-16 11:03:00 Test Item Value Reference Range Interpretation Comments RBC (test code = RBC) 3.57 4.20-5.40 [facility] PlanoRtvoqifKVMCIRJWVW6234-86-74 11:03:00 Test Item Value Reference Range Interpretation Comments Hgb (test code = Hgb) 9.4 12.0-16.0 [facility]anoSkntnlvRVDNUTAEVE1604-62-75 11:03:00 Test Item Value Reference Range Interpretation Comments Hct (test code = Hct) 28.5 36.0-48.0 [facility]anoMtebsfjSVABKOKATA9254-58-39 11:03:00 Test Item Value Reference Range Interpretation Comments Platelet (test code = Platelet) 183 133-450 [facility]anoJmwkkofLLECLJDCMX7762-54-04 11:03:00 Test Item Value Reference Range Interpretation Comments MCV (test code = MCV) 79.9 80.0-98.0 [facility]anoHffjfwmXEMLUSVVDQ5275-06-72 11:03:00 Test Item Value Reference Range Interpretation Comments MCH (test code = MCH) 26.3 pg 27.0-31.0 [facility]anoCucubvwDWOEGIGERM4274-61-12 11:03:00 Test Item Value Reference Range Interpretation Comments MCHC (test code = MCHC) 33.0 32.0-36.0 [facility]anoSdwjoqrLYQJRTONIJ0042-61-81 11:03:00 Test Item Value Reference Range Interpretation Comments RDW (test code = RDW) 15.9 11.5-14.5 [facility]2016-12-25 11:03:00 Test Item Value Reference Range Interpretation Comments Phosphorus (test code = Phosphorus) 4.8 2.5-4.5 [facility]2016-12-25 11:03:00 Test Item Value Reference Range Interpretation Comments Magnesium Lvl (test code = Magnesium 2.0 1.8-2.4 Lvl) [facility]2016-12-25 11:03:00 Test Item Value Reference Range Interpretation Comments eGFR (test code = eGFR) 32 [facility]2016-12-25 11:03:00 Test Item Value Reference Range Interpretation Comments Chloride Lvl (test code = Chloride Lvl) 101 95-109 [facility]2016-12-25 11:03:00 Test Item Value Reference Range Interpretation Comments Potassium Lvl (test code = Potassium 4.4 3.5-5.1 Lvl) [facility]2016-12-25 11:03:00 Test Item Value Reference Range Interpretation Comments BUN (test code = BUN) 37 7-22 [facility]2016-12-25 11:03:00 Test Item Value Reference Range Interpretation Comments Glucose Lvl (test code = Glucose Lvl) 119 70-99 [facility]2016-12-25 11:03:00 Test Item Value Reference Range Interpretation Comments Creatinine Lvl (test code = Creatinine 2.00 0.50-1.40 Lvl) [facility]2016-12-25 11:03:00 Test Item Value Reference Range Interpretation Comments Sodium Lvl (test code = Sodium Lvl) 142 135-145 [facility]2016-12-25 11:03:00 Test Item Value Reference Range Interpretation Comments Calcium Lvl (test code = Calcium Lvl) 8.7 8.5-10.5 [facility]2016-12-25 11:03:00 Test Item Value Reference Range Interpretation Comments CO2 (test code = CO2) 32 24-32 [facility]2016-12-25 11:03:00 Test Item Value Reference Range Interpretation Comments AGAP (test code = AGAP) 13.4 10.0-20.0 [facility]anoSlpdwhtTLLVERJUPW3600-98-29 11:03:00 Test Item Value Reference Range Interpretation Comments Eosinophils (test code = 10.3 See_Comment [A utomated message] The Eosinophils) system which ge nerated this result tra nsmitted reference range : <=4.0. The reference r leo was not used to int erpret this result as normal/abnormal . [facility]anoLazzoecLXVMGBOZEP4937-67-66 11:03:00 Test Item Value Reference Range Interpretation Comments Basophils # (test code 0.1 See_Comment [Aut omated message] The = Basophils #) system which generated this result tra nsmitted reference range : <=0.2. The reference r leo was not used to int erpret this result as normal/abnormal . [facility]anoXuvbbjjXNUBZOOADF8781-24-76 11:03:00 Test Item Value Reference Range Interpretation Comments Eosinophils # (test code 0.5 See_Comment [A utomated message] The = Eosinophils #) system whic h generated this result tra nsmitted reference range : <=0.5. The reference r leo was not used to int erpret this result as normal/abnormal . [facility]anoGeazgfqDIRGZUIPPM9627-08-11 11:03:00 Test Item Value Reference Range Interpretation Comments Monocytes # (test code 0.5 See_Comment [Aut omated message] The = Monocytes #) system which generated this result tra nsmitted reference range : <=0.8. The reference r leo was not used to int erpret this result as normal/abnormal . [facility]anoLgsxshqYSSYZOMHXG8717-81-62 11:03:00 Test Item Value Reference Range Interpretation Comments Segs-Bands # (test code = Segs-Bands #) 2.1 1.5-8.1 [facility]anoNwwdxnpMNWJDPEVFN9788-62-50 11:03:00 Test Item Value Reference Range Interpretation Comments Basophils (test code = 1.2 See_Comment [Aut omated message] The Basophils) system which ge nerated this result tra nsmitted reference range : <=1.0. The reference r leo was not used to int erpret this result as normal/abnormal . [facility]anoNvrbrebFENYKABHUE7535-57-79 11:03:00 Test Item Value Reference Range Interpretation Comments Lymphocytes # (test code = Lymphocytes 1.9 1.0-5.5 #) [facility]anoCaiccwwCICFFLGKTF2949-48-88 11:03:00 Test Item Value Reference Range Interpretation Comments Segs (test code = Segs) 42.5 45.0-75.0 [facility]anoOorklxpCLZCKCDRKF9302-38-37 11:03:00 Test Item Value Reference Range Interpretation Comments Lymphocytes (test code = Lymphocytes) 37.0 20.0-40.0 [facility]anoDnbwrgtDCWUAJCBWT1474-23-74 11:03:00 Test Item Value Reference Range Interpretation Comments Monocytes (test code = Monocytes) 9.0 2.0-12.0 [facility]anoGltbiohVYTMXAQWQX1639-30-40 11:03:00 Test Item Value Reference Range Interpretation Comments MPV (test code = MPV) 9.8 7.4-10.4 [facility]anoReemrltOUGBLSPGEV5733-02-37 11:03:00 Test Item Value Reference Range Interpretation Comments WBC (test code = WBC) 5.0 3.7-10.4 [facility]anoGkfnsqoEOIPEQJZBF4493-57-92 11:03:00 Test Item Value Reference Range Interpretation Comments RBC (test code = RBC) 3.57 4.20-5.40 [facility]anoXbivhdnHXJYDTTSRQ0338-36-19 11:03:00 Test Item Value Reference Range Interpretation Comments Hgb (test code = Hgb) 9.4 12.0-16.0 [facility]anoLapkxreTNMSFRWZMQ0485-18-36 11:03:00 Test Item Value Reference Range Interpretation Comments Hct (test code = Hct) 28.5 36.0-48.0 [facility] PlanoZbbigkkONZLNLRTDZ9257-42-83 11:03:00 Test Item Value Reference Range Interpretation Comments Platelet (test code = Platelet) 183 133-450 [facility]anoJwoagpwDAGGOGOWOH4507-52-09 11:03:00 Test Item Value Reference Range Interpretation Comments MCV (test code = MCV) 79.9 80.0-98.0 [facility]mwoppdKVMCXERHCE1817-42-04 11:03:00 Test Item Value Reference Range Interpretation Comments MCH (test code = MCH) 26.3 pg 27.0-31.0 [facility]onqzmwWEDDTAGXIV1507-55-83 11:03:00 Test Item Value Reference Range Interpretation Comments MCHC (test code = MCHC) 33.0 32.0-36.0 [facility] CenterDydugmnJJWZKIJHLO2312-51-98 11:03:00 Test Item Value Reference Range Interpretation Comments RDW (test code = RDW) 15.9 11.5-14.5 [facility] XERU0902-45-20 10:26:00 Test Item Value Reference Range Interpretation Comments U Prot/Creat (test code = U Prot/Creat) 6.9 [facility]2016-12-24 10:26:00 Test Item Value Reference Range Interpretation Comments U Creatinine (test code = U Creatinine) 19.30 [facility]2016-12-24 10:26:00 Test Item Value Reference Range Interpretation Comments U Protein (test code = U Protein) 133.1 [facility]2016-12-24 10:26:00 Test Item Value Reference Range Interpretation Comments U Prot/Creat (test code = U Prot/Creat) 6.9 [facility]2016-12-24 10:26:00 Test Item Value Reference Range Interpretation Comments U Creatinine (test code = U Creatinine) 19.30 [facility]2016-12-24 10:26:00 Test Item Value Reference Range Interpretation Comments U Protein (test code = U Protein) 133.1 [facility]2016-12-24 10:26:00 Test Item Value Reference Range Interpretation Comments U Prot/Creat (test code = U Prot/Creat) 6.9 [facility] [id number] 10:26:00 Test Item Value Reference Range Interpretation Comments U Creatinine (test code = U Creatinine) 19.30 [facility] KZQM8782-30-61 10:26:00 Test Item Value Reference Range Interpretation Comments U Protein (test code = U Protein) 133.1 [facility]2016-12-24 10:26:00 Test Item Value Reference Range Interpretation Comments U Prot/Creat (test code = U Prot/Creat) 6.9 [facility]2016-12-24 10:26:00 Test Item Value Reference Range Interpretation Comments U Creatinine (test code = U Creatinine) 19.30 [facility]2016-12-24 10:26:00 Test Item Value Reference Range Interpretation Comments U Protein (test code = U Protein) 133.1 [facility]2016-12-24 10:26:00 Test Item Value Reference Range Interpretation Comments U Prot/Creat (test code = U Prot/Creat) 6.9 [facility]2016-12-24 10:26:00 Test Item Value Reference Range Interpretation Comments U Creatinine (test code = U Creatinine) 19.30 [facility]2016-12-24 10:26:00 Test Item Value Reference Range Interpretation Comments U Protein (test code = U Protein) 133.1 [facility]nyp[facility]lUBWTJRHOBM4389-43-30 09:20:00 Test Item Value Reference Range Interpretation Comments MPV (test code = MPV) 9.7 7.4-10.4 [facility]anoYwicahtAUNMKITATU6450-54-84 09:20:00 Test Item Value Reference Range Interpretation Comments Platelet (test code = Platelet) 184 133-450 [facility]anoBgqdtzlUGRXIRCVLB5642-59-03 09:20:00 Test Item Value Reference Range Interpretation Comments RDW (test code = RDW) 15.9 11.5-14.5 [facility]anoJhehjgyFOGSFIBUTT9021-94-45 09:20:00 Test Item Value Reference Range Interpretation Comments MCV (test code = MCV) 79.3 80.0-98.0 [facility]anoKydlwjcYBGOMEXXFH9434-33-96 09:20:00 Test Item Value Reference Range Interpretation Comments MCHC (test code = MCHC) 33.0 32.0-36.0 [facility]anoEpdvoegACFFJTDHIL8176-34-05 09:20:00 Test Item Value Reference Range Interpretation Comments MCH (test code = MCH) 26.2 pg 27.0-31.0 [facility]anoNbuqyuvCAAPSMAMVE4926-78-55 09:20:00 Test Item Value Reference Range Interpretation Comments Hct (test code = Hct) 29.4 36.0-48.0 [facility]anoYfjujhzEERZTWUMUF2369-06-61 09:20:00 Test Item Value Reference Range Interpretation Comments Hgb (test code = Hgb) 9.7 12.0-16.0 [facility]anoPngfhxwOKPMHVHQPW9913-40-31 09:20:00 Test Item Value Reference Range Interpretation Comments RBC (test code = RBC) 3.70 4.20-5.40 [facility]anoHmbdxljYCMYQASLNB2438-15-36 09:20:00 Test Item Value Reference Range Interpretation Comments WBC (test code = WBC) 5.7 3.7-10.4 [facility]anoZwjxrcvFVDZTTJQAC9745-22-20 09:20:00 Test Item Value Reference Range Interpretation Comments Basophils # (test code 0.1 See_Comment [Aut omated message] The = Basophils #) system which generated this result tra nsmitted reference range : <=0.2. The reference r leo was not used to int erpret this result as normal/abnormal . [facility]anoHjyqaftFSBFUHTHFP5273-80-64 09:20:00 Test Item Value Reference Range Interpretation Comments Lymphocytes # (test code = Lymphocytes 2.2 1.0-5.5 #) [facility]anoAuubjofZCMEDDKTHB4583-02-50 09:20:00 Test Item Value Reference Range Interpretation Comments Eosinophils # (test code 0.5 See_Comment [A utomated message] The = Eosinophils #) system whic h generated this result tra nsmitted reference range : <=0.5. The reference r leo was not used to int erpret this result as normal/abnormal . [facility]anoAkfnybaJQQRWOJTDR5286-53-56 09:20:00 Test Item Value Reference Range Interpretation Comments Monocytes # (test code 0.5 See_Comment [Aut omated message] The = Monocytes #) system which generated this result tra nsmitted reference range : <=0.8. The reference r leo was not used to int erpret this result as normal/abnormal . [facility]anoFvnpcdzJLGWBLUQXP7759-26-26 09:20:00 Test Item Value Reference Range Interpretation Comments Basophils (test code = 1.1 See_Comment [Aut omated message] The Basophils) system which ge nerated this result tra nsmitted reference range : <=1.0. The reference r leo was not used to int erpret this result as normal/abnormal . [facility]anoMbyorutLXESXODZRI8774-45-13 09:20:00 Test Item Value Reference Range Interpretation Comments Segs-Bands # (test code = Segs-Bands #) 2.3 1.5-8.1 [facility]anoJpfbfzgWKPATRLJPB5951-07-80 09:20:00 Test Item Value Reference Range Interpretation Comments Eosinophils (test code = 9.5 See_Comment [A utomated message] The Eosinophils) system which ge nerated this result tra nsmitted reference range : <=4.0. The reference r leo was not used to int erpret this result as normal/abnormal . [facility]anoYarrpdhHPEAEENMMF4201-82-19 09:20:00 Test Item Value Reference Range Interpretation Comments Monocytes (test code = Monocytes) 9.0 2.0-12.0 [facility]anoQjfizgtAQCYXQXWGS7317-66-32 09:20:00 Test Item Value Reference Range Interpretation Comments Lymphocytes (test code = Lymphocytes) 38.9 20.0-40.0 [facility]anoYhgdomtFVIVXUZENS1235-57-29 09:20:00 Test Item Value Reference Range Interpretation Comments Segs (test code = Segs) 41.5 45.0-75.0 [facility]anoBbhntkbGKBARNZFZF7838-90-82 09:20:00 Test Item Value Reference Range Interpretation Comments MPV (test code = MPV) 9.7 7.4-10.4 [facility]anoWcsrefkQXGBNKGPBP7612-04-46 09:20:00 Test Item Value Reference Range Interpretation Comments Platelet (test code = Platelet) 184 133-450 [facility]anoKuejaotIWRTLEGLJY9225-47-24 09:20:00 Test Item Value Reference Range Interpretation Comments RDW (test code = RDW) 15.9 11.5-14.5 [facility]anoHrmikuoYQEYZUOOQU6278-62-48 09:20:00 Test Item Value Reference Range Interpretation Comments MCV (test code = MCV) 79.3 80.0-98.0 [facility]anoYjtjkakNFSDXIJIZM7575-05-50 09:20:00 Test Item Value Reference Range Interpretation Comments MCHC (test code = MCHC) 33.0 32.0-36.0 [facility]anoBorhbidWXGCAHLHQC5897-20-24 09:20:00 Test Item Value Reference Range Interpretation Comments MCH (test code = MCH) 26.2 pg 27.0-31.0 [facility]anoBekpvyoLCJOWQZOFX6751-21-21 09:20:00 Test Item Value Reference Range Interpretation Comments Hct (test code = Hct) 29.4 36.0-48.0 [place] 368086-12-24 09:20:00 Test Item Value Reference Range Interpretation Comments Hgb (test code = Hgb) 9.7 12.0-16.0 [facility]anoOpayiztQZLVBOQJTU7571-69-28 09:20:00 Test Item Value Reference Range Interpretation Comments RBC (test code = RBC) 3.70 4.20-5.40 [facility]anoNyhgllxFZRCHUUISG5760-88-13 09:20:00 Test Item Value Reference Range Interpretation Comments WBC (test code = WBC) 5.7 3.7-10.4 [place] 368086-12-24 09:20:00 Test Item Value Reference Range Interpretation Comments Basophils # (test code 0.1 See_Comment [Aut omated message] The = Basophils #) system which generated this result tra nsmitted reference range : <=0.2. The reference r leo was not used to int erpret this result as normal/abnormal . [facility]anoCqwzzacKLIGMUTIGL8464-42-90 09:20:00 Test Item Value Reference Range Interpretation Comments Lymphocytes # (test code = Lymphocytes 2.2 1.0-5.5 #) [facility]anoRjrrocgIEBOVXISZX0590-34-20 09:20:00 Test Item Value Reference Range Interpretation Comments Eosinophils # (test code 0.5 See_Comment [A utomated message] The = Eosinophils #) system [facility] h generated this result tra nsmitted reference range : <=0.5. The reference r leo was not used to int erpret this result as normal/abnormal . [facility]anoEjjilgyLWLNMADTGV6661-73-55 09:20:00 Test Item Value Reference Range Interpretation Comments Monocytes # (test code 0.5 See_Comment [Aut omated message] The = Monocytes #) system which generated this result tra nsmitted reference range : <=0.8. The reference r leo was not used to int erpret this result as normal/abnormal . [facility]anoOlrybutMFYTYRRPJG4032-64-33 09:20:00 Test Item Value Reference Range Interpretation Comments Basophils (test code = 1.1 See_Comment [Aut omated message] The Basophils) system which ge nerated this result tra nsmitted reference range : <=1.0. The reference r leo was not used to int erpret this result as normal/abnormal . [place] 368086-12-24 09:20:00 Test Item Value Reference Range Interpretation Comments Segs-Bands # (test code = Segs-Bands #) 2.3 1.5-8.1 [facility]anoEzfuwznPUSZNIXKGX2636-46-92 09:20:00 Test Item Value Reference Range Interpretation Comments Eosinophils (test code = 9.5 See_Comment [A utomated message] The Eosinophils) system which ge nerated this result tra nsmitted reference range : <=4.0. The reference r leo was not used to int erpret this result as normal/abnormal . [facility]anoFpduoxvPGQAEZVIYV6849-03-54 09:20:00 Test Item Value Reference Range Interpretation Comments Monocytes (test code = Monocytes) 9.0 2.0-12.0 [facility]anoNmlslveRCMAALOVJV5535-18-90 09:20:00 Test Item Value Reference Range Interpretation Comments Lymphocytes (test code = Lymphocytes) 38.9 20.0-40.0 [facility]anoQspwaybDZFXOQWCHF0937-37-46 09:20:00 Test Item Value Reference Range Interpretation Comments Segs (test code = Segs) 41.5 45.0-75.0 [facility]anoHnonpuuHPWAEMKWUK8397-20-91 09:20:00 Test Item Value Reference Range Interpretation Comments MPV (test code = MPV) 9.7 7.4-10.4 [facility]anoOotvyfoJUECYZKNUL2680-97-91 09:20:00 Test Item Value Reference Range Interpretation Comments Platelet (test code = Platelet) 184 133-450 [facility] PlanoUteomeeHJGAVDDSUG7891-09-55 09:20:00 Test Item Value Reference Range Interpretation Comments RDW (test code = RDW) 15.9 11.5-14.5 [facility]anoYxjjmnkFUWJDWUPDX3446-89-25 09:20:00 Test Item Value Reference Range Interpretation Comments MCV (test code = MCV) 79.3 80.0-98.0 [facility]anoLpptcmxVVNATCBMDY2764-43-96 09:20:00 Test Item Value Reference Range Interpretation Comments MCHC (test code = MCHC) 33.0 32.0-36.0 [facility]anoBfaglefCVVBGXJKEV9527-29-95 09:20:00 Test Item Value Reference Range Interpretation Comments MCH (test code = MCH) 26.2 pg 27.0-31.0 [facility]anoCzsljtwFRFPSJHOFC2961-16-53 09:20:00 Test Item Value Reference Range Interpretation Comments Hct (test code = Hct) 29.4 36.0-48.0 [facility]anoVawmtsxWSUTQXTSKT1076-11-94 09:20:00 Test Item Value Reference Range Interpretation Comments Hgb (test code = Hgb) 9.7 12.0-16.0 [place] 368086-12-24 09:20:00 Test Item Value Reference Range Interpretation Comments RBC (test code = RBC) 3.70 4.20-5.40 [place] 368086-12-24 09:20:00 Test Item Value Reference Range Interpretation Comments WBC (test code = WBC) 5.7 3.7-10.4 [facility]anoWfgnhuzUMVSJICMGC7171-03-21 09:20:00 Test Item Value Reference Range Interpretation Comments Basophils # (test code 0.1 See_Comment [Aut omated message] The = Basophils #) system which generated this result tra nsmitted reference range : <=0.2. The reference r leo was not used to int erpret this result as normal/abnormal . [facility]anoNcclvnuPBGZKETJBQ4704-35-27 09:20:00 Test Item Value Reference Range Interpretation Comments Lymphocytes # (test code = Lymphocytes 2.2 1.0-5.5 #) [facility] PlanoZtpoddxAGNRTSJIIP5961-59-85 09:20:00 Test Item Value Reference Range Interpretation Comments Eosinophils # (test code 0.5 See_Comment [A utomated message] The = Eosinophils #) system whic h generated this result tra nsmitted reference range : <=0.5. The reference r leo was not used to int erpret this result as normal/abnormal . [facility]anoNrsjgtsHOXQRKHBTJ8834-49-84 09:20:00 Test Item Value Reference Range Interpretation Comments Monocytes # (test code 0.5 See_Comment [Aut omated message] The = Monocytes #) system which generated this result tra nsmitted reference range : <=0.8. The reference r leo was not used to int erpret this result as normal/abnormal . [place] [address]-12-24 09:20:00 Test Item Value Reference Range Interpretation Comments Basophils (test code = 1.1 See_Comment [Aut omated message] The Basophils) system which ge nerated this result tra nsmitted reference range : <=1.0. The reference r leo was not used to int erpret this result as normal/abnormal . [facility]anoGglectuABRRRAVAPE7519-61-57 09:20:00 Test Item Value Reference Range Interpretation Comments Segs-Bands # (test code = Segs-Bands #) 2.3 1.5-8.1 [facility]anoEcpvkutYUATHRJYPY6424-66-45 09:20:00 Test Item Value Reference Range Interpretation Comments Eosinophils (test code = 9.5 See_Comment [A utomated message] The Eosinophils) system which ge nerated this result tra nsmitted reference range : <=4.0. The reference r leo was not used to int erpret this result as normal/abnormal . [facility]anoAjtembjXAQZCDYWFU4304-78-90 09:20:00 Test Item Value Reference Range Interpretation Comments Monocytes (test code = Monocytes) 9.0 2.0-12.0 [facility]anoLtcrcumBHMPZCRHIM2966-90-29 09:20:00 Test Item Value Reference Range Interpretation Comments Lymphocytes (test code = Lymphocytes) 38.9 20.0-40.0 [facility]anoPvnjwktUBTMXOVFCZ1005-94-47 09:20:00 Test Item Value Reference Range Interpretation Comments Segs (test code = Segs) 41.5 45.0-75.0 [facility]anoOzcfpfjKRUGSWRBAP7878-93-62 09:20:00 Test Item Value Reference Range Interpretation Comments MPV (test code = MPV) 9.7 7.4-10.4 [facility]anoNruehdzQWPMCFDQHQ9036-88-78 09:20:00 Test Item Value Reference Range Interpretation Comments Platelet (test code = Platelet) 184 133-450 [facility]anoByjrpbuHYKCEZOKCL0953-85-56 09:20:00 Test Item Value Reference Range Interpretation Comments RDW (test code = RDW) 15.9 11.5-14.5 [facility]anoAewrvonWKSQWEULRT3596-71-41 09:20:00 Test Item Value Reference Range Interpretation Comments MCV (test code = MCV) 79.3 80.0-98.0 [facility]anoLhceofmMEEVGFINMB5660-99-24 09:20:00 Test Item Value Reference Range Interpretation Comments MCHC (test code = MCHC) 33.0 32.0-36.0 [facility]anoDjpgmcoCHACCTZLLT4365-02-67 09:20:00 Test Item Value Reference Range Interpretation Comments MCH (test code = MCH) 26.2 pg 27.0-31.0 [place] 368086-12-24 09:20:00 Test Item Value Reference Range Interpretation Comments Hct (test code = Hct) 29.4 36.0-48.0 [facility]anoAnqiurwLXOIHQBPHI5091-80-39 09:20:00 Test Item Value Reference Range Interpretation Comments Hgb (test code = Hgb) 9.7 12.0-16.0 [place] 368086-12-24 09:20:00 Test Item Value Reference Range Interpretation Comments RBC (test code = RBC) 3.70 4.20-5.40 [place] 368086-12-24 09:20:00 Test Item Value Reference Range Interpretation Comments WBC (test code = WBC) 5.7 3.7-10.4 [place] 368086-12-24 09:20:00 Test Item Value Reference Range Interpretation Comments Basophils # (test code 0.1 See_Comment [Aut omated message] The = Basophils #) system which generated this result tra nsmitted reference range : <=0.2. The reference r leo was not used to int erpret this result as normal/abnormal . [facility]anoIozwhvmMYTOLPUWQL4793-92-64 09:20:00 Test Item Value Reference Range Interpretation Comments Lymphocytes # (test code = Lymphocytes 2.2 1.0-5.5 #) [facility]anoNhopgecVDKMPXXIUK0349-38-76 09:20:00 Test Item Value Reference Range Interpretation Comments Eosinophils # (test code 0.5 See_Comment [A utomated message] The = Eosinophils #) system whic h generated this result tra nsmitted reference range : <=0.5. The reference r leo was not used to int erpret this result as normal/abnormal . [facility]anoNcfdzhdQWLKHXKUDH7523-42-37 09:20:00 Test Item Value Reference Range Interpretation Comments Monocytes # (test code 0.5 See_Comment [Aut omated message] The = Monocytes #) system which generated this result tra nsmitted reference range : <=0.8. The reference r leo was not used to int erpret this result as normal/abnormal . [facility]anoJzfhulrMMQBRQNCHT3308-29-74 09:20:00 Test Item Value Reference Range Interpretation Comments Basophils (test code = 1.1 See_Comment [Aut omated message] The Basophils) system which ge nerated this result tra nsmitted reference range : <=1.0. The reference r leo was not used to int erpret this result as normal/abnormal . [facility]anoKregcraFRCKWSOXXE9726-75-37 09:20:00 Test Item Value Reference Range Interpretation Comments Segs-Bands # (test code = Segs-Bands #) 2.3 1.5-8.1 [facility] PlanoRifumflBZCZUMXEFT9650-47-58 09:20:00 Test Item Value Reference Range Interpretation Comments Eosinophils (test code = 9.5 See_Comment [A utomated message] The Eosinophils) system which ge nerated this result tra nsmitted reference range : <=4.0. The reference r leo was not used to int erpret this result as normal/abnormal . [facility]anoKrmlncxRFWYJMGXHJ1237-20-73 09:20:00 Test Item Value Reference Range Interpretation Comments Monocytes (test code = Monocytes) 9.0 2.0-12.0 [facility]anoHxfvrzlEGOTCZEBWY3319-45-33 09:20:00 Test Item Value Reference Range Interpretation Comments Lymphocytes (test code = Lymphocytes) 38.9 20.0-40.0 [facility]anoXneabpoRYRDFVNXAH1789-97-19 09:20:00 Test Item Value Reference Range Interpretation Comments Segs (test code = Segs) 41.5 45.0-75.0 [facility]anoHcfutagDVXWFXKTUQ8748-03-14 09:20:00 Test Item Value Reference Range Interpretation Comments MPV (test code = MPV) 9.7 7.4-10.4 [facility]anoQgzryypWCIKFHCRFD2309-30-18 09:20:00 Test Item Value Reference Range Interpretation Comments Platelet (test code = Platelet) 184 133-450 [facility]anoCsmmrleYMHBVTGQUW5293-15-80 09:20:00 Test Item Value Reference Range Interpretation Comments RDW (test code = RDW) 15.9 11.5-14.5 [facility]anoCjkgjatYJYPKZKDZK1521-12-57 09:20:00 Test Item Value Reference Range Interpretation Comments MCV (test code = MCV) 79.3 80.0-98.0 [facility]anoGuzgpueCVNIQFHQWV5484-59-36 09:20:00 Test Item Value Reference Range Interpretation Comments MCHC (test code = MCHC) 33.0 32.0-36.0 [facility] PlanoZpgouekOUJZYMMGBA8963-07-54 09:20:00 Test Item Value Reference Range Interpretation Comments MCH (test code = MCH) 26.2 pg 27.0-31.0 [facility]anoEhubfpxHGGSQHCKUP2010-73-81 09:20:00 Test Item Value Reference Range Interpretation Comments Hct (test code = Hct) 29.4 36.0-48.0 [facility]anoAdxzchtWENETXOKHT0070-63-16 09:20:00 Test Item Value Reference Range Interpretation Comments Hgb (test code = Hgb) 9.7 12.0-16.0 [facility]anoFiwdrlkSHTMFSWJXO5838-15-35 09:20:00 Test Item Value Reference Range Interpretation Comments RBC (test code = RBC) 3.70 4.20-5.40 [facility] PlanoNngqiriHWHCPIXGAR8670-00-74 09:20:00 Test Item Value Reference Range Interpretation Comments WBC (test code = WBC) 5.7 3.7-10.4 [facility] PlanoZpiibkeMWMNELQPRK2839-30-16 09:20:00 Test Item Value Reference Range Interpretation Comments Basophils # (test code 0.1 See_Comment [Aut omated message] The = Basophils #) system which generated this result tra nsmitted reference range : <=0.2. The reference r leo was not used to int erpret this result as normal/abnormal . [facility] PlanoCeuxqipEROIBLWVRK5115-88-56 09:20:00 Test Item Value Reference Range Interpretation Comments Lymphocytes # (test code = Lymphocytes 2.2 1.0-5.5 #) [facility]anoVnnouzfCZVXVEAIOU9429-17-62 09:20:00 Test Item Value Reference Range Interpretation Comments Eosinophils # (test code 0.5 See_Comment [A utomated message] The = Eosinophils #) system whic h generated this result tra nsmitted reference range : <=0.5. The reference r leo was not used to int erpret this result as normal/abnormal . [facility]anoGmwbcbyIJXKLJSALR0528-11-41 09:20:00 Test Item Value Reference Range Interpretation Comments Monocytes # (test code 0.5 See_Comment [Aut omated message] The = Monocytes #) system which generated this result tra nsmitted reference range : <=0.8. The reference r leo was not used to int erpret this result as normal/abnormal . [facility]anoGbjiidzKTGWVZTISD8099-17-07 09:20:00 Test Item Value Reference Range Interpretation Comments Basophils (test code = 1.1 See_Comment [Aut omated message] The Basophils) system which ge nerated this result tra nsmitted reference range : <=1.0. The reference r leo was not used to int erpret this result as normal/abnormal . [facility]anoOfgictiKVRMCWEOPG1276-35-72 09:20:00 Test Item Value Reference Range Interpretation Comments Segs-Bands # (test code = Segs-Bands #) 2.3 1.5-8.1 [facility] PlanoDhkkafzUJJYUHINVV8368-13-91 09:20:00 Test Item Value Reference Range Interpretation Comments Eosinophils (test code = 9.5 See_Comment [A utomated message] The Eosinophils) system which ge nerated this result tra nsmitted reference range : <=4.0. The reference r leo was not used to int erpret this result as normal/abnormal . [facility] PlanoUvgheeqJSITOKXZNB5725-49-91 09:20:00 Test Item Value Reference Range Interpretation Comments Monocytes (test code = Monocytes) 9.0 2.0-12.0 [facility] PlanoHwqwunaXVMOQVCZIV7916-73-17 09:20:00 Test Item Value Reference Range Interpretation Comments Lymphocytes (test code = Lymphocytes) 38.9 20.0-40.0 [facility]anoOlmwfigMSSPHXORIU3633-60-39 09:20:00 Test Item Value Reference Range Interpretation Comments Segs (test code = Segs) 41.5 45.0-75.0 [facility]2016-12-24 06:34:00 Test Item Value Reference Range Interpretation Comments Magnesium Lvl (test code = Magnesium 1.7 1.8-2.4 Lvl) [facility]2016-12-24 06:34:00 Test Item Value Reference Range Interpretation Comments Phosphorus (test code = Phosphorus) 4.2 2.5-4.5 [facility]XIZSLUTMJKIF5229[facility]-58 06:34:00 Test Item Value Reference Range Interpretation Comments AGAP (test code = AGAP) 14.3 10.0-20.0 [facility]ByjjlywVCURHTPBUHZY9023-00-08 06:34:00 Test Item Value Reference Range Interpretation Comments eGFR (test code = eGFR) 41 [facility]BgpcihgQDNTITNDMTLO5660-13-78 06:34:00 Test Item Value Reference Range Interpretation Comments Chloride Lvl (test code = Chloride Lvl) 103 95-109 [facility] HospitalRawoyefQLEOAKQJKDXP5662-85-38 06:34:00 Test Item Value Reference Range Interpretation Comments Calcium Lvl (test code = Calcium Lvl) 8.5 8.5-10.5 [facility] HospitalCnhagsjBWMTVPPEJADM2747-06-35 06:34:00 Test Item Value Reference Range Interpretation Comments CO2 (test code = CO2) 32 24-32 [facility] HospitalRlgmusbOWMXQQAZYHIF1029-37-56 06:34:00 Test Item Value Reference Range Interpretation Comments Glucose Lvl (test code = Glucose Lvl) 173 70-99 [facility] HospitalQjcekjuHNHYFRQFJOJB6375-73-96 06:34:00 Test Item Value Reference Range Interpretation Comments BUN (test code = BUN) 37 7-22 [facility] HospitalTjrkoteCOTBAUTBICDG6961-57-44 06:34:00 Test Item Value Reference Range Interpretation Comments Creatinine Lvl (test code = Creatinine 1.63 0.50-1.40 Lvl) [facility] HospitalDnouxruTWBIZLLFFYVM3715-48-63 06:34:00 Test Item Value Reference Range Interpretation Comments Potassium Lvl (test code = Potassium 4.3 3.5-5.1 Lvl) [facility]YklehjuZYKOUATLJPYA2921-50-54 06:34:00 Test Item Value Reference Range Interpretation Comments Sodium Lvl (test code = Sodium Lvl) 145 135-145 [facility]2016-12-24 06:34:00 Test Item Value Reference Range Interpretation Comments Magnesium Lvl (test code = Magnesium 1.7 1.8-2.4 Lvl) [facility] TYPJV7603-13-99 06:34:00 Test Item Value Reference Range Interpretation Comments Phosphorus (test code = Phosphorus) 4.2 2.5-4.5 [facility] HospitalXairivwLNZIWUFWVBUZ1529-31-69 06:34:00 Test Item Value Reference Range Interpretation Comments AGAP (test code = AGAP) 14.3 10.0-20.0 [facility] HospitalOwagzljMODOPZRBOGIL5502-41-77 06:34:00 Test Item Value Reference Range Interpretation Comments eGFR (test code = eGFR) 41 [facility] HospitalPdforflBOAEMKXDFRQA2067-28-89 06:34:00 Test Item Value Reference Range Interpretation Comments Chloride Lvl (test code = Chloride Lvl) 103 95-109 [facility] HospitalHdrworjRGJTSXUAXSVZ3412-36-86 06:34:00 Test Item Value Reference Range Interpretation Comments Calcium Lvl (test code = Calcium Lvl) 8.5 8.5-10.5 [facility] HospitalDwupnhrOHDXVPNLGKZP9624-06-82 06:34:00 Test Item Value Reference Range Interpretation Comments CO2 (test code = CO2) 32 24-32 [facility] HospitalEfuhkjpJGJOLDQYNXBY9435-47-53 06:34:00 Test Item Value Reference Range Interpretation Comments Glucose Lvl (test code = Glucose Lvl) 173 70-99 [facility] HospitalXzbhjoiRMOODTWOCMFY6752-72-33 06:34:00 Test Item Value Reference Range Interpretation Comments BUN (test code = BUN) 37 7-22 [facility] HospitalVdovicnVYFKFJBHWLIY5779-10-30 06:34:00 Test Item Value Reference Range Interpretation Comments Creatinine Lvl (test code = Creatinine 1.63 0.50-1.40 Lvl) [facility]IkrdhbaHDDCDOMNYJPS1727-47-23 06:34:00 Test Item Value Reference Range Interpretation Comments Potassium Lvl (test code = Potassium 4.3 3.5-5.1 Lvl) [facility] HospitalImsqlheKUBCMHJFTVVP5714-86-29 06:34:00 Test Item Value Reference Range Interpretation Comments Sodium Lvl (test code = Sodium Lvl) 145 135-145 [facility] KIRYI0035-49-30 06:34:00 Test Item Value Reference Range Interpretation Comments Magnesium Lvl (test code = Magnesium 1.7 1.8-2.4 Lvl) [facility]2016-12-24 06:34:00 Test Item Value Reference Range Interpretation Comments Phosphorus (test code = Phosphorus) 4.2 2.5-4.5 [facility] HospitalJipawfhEYGXSNDTQCTX1252-49-40 06:34:00 Test Item Value Reference Range Interpretation Comments AGAP (test code = AGAP) 14.3 10.0-20.0 [facility] HospitalGgnjnjtGOIIWGPLMKPE0769-43-72 06:34:00 Test Item Value Reference Range Interpretation Comments eGFR (test code = eGFR) 41 [facility] HospitalYxjlqkiMQLSEEWWUECU8559-26-99 06:34:00 Test Item Value Reference Range Interpretation Comments Chloride Lvl (test code = Chloride Lvl) 103 95-109 [facility] HospitalFfqwsqeSCTLYPRVFUOS9714-01-15 06:34:00 Test Item Value Reference Range Interpretation Comments Calcium Lvl (test code = Calcium Lvl) 8.5 8.5-10.5 [facility] HospitalRfuhxljRSANIPSJDGOK9891-64-13 06:34:00 Test Item Value Reference Range Interpretation Comments CO2 (test code = CO2) 32 24-32 [facility] HospitalCdmhnfvVZNBFBDPREVZ8137-21-18 06:34:00 Test Item Value Reference Range Interpretation Comments Glucose Lvl (test code = Glucose Lvl) 173 70-99 [facility] HospitalBfonsyxXRGOPZTKCCQM8824-72-83 06:34:00 Test Item Value Reference Range Interpretation Comments BUN (test code = BUN) 37 7-22 [facility] HospitalZgbkutwQLFESTCVEEEU7687-33-44 06:34:00 Test Item Value Reference Range Interpretation Comments Creatinine Lvl (test code = Creatinine 1.63 0.50-1.40 Lvl) [facility] HospitalZugeqstSBJDNOCFRIOB0389-16-11 06:34:00 Test Item Value Reference Range Interpretation Comments Potassium Lvl (test code = Potassium 4.3 3.5-5.1 Lvl) [facility] HospitalLzcvxobBKOOENFAUANQ9792-63-60 06:34:00 Test Item Value Reference Range Interpretation Comments Sodium Lvl (test code = Sodium Lvl) 145 135-145 [facility] CenterCHEM GRVUF4161-33-29 06:34:00 Test Item Value Reference Range Interpretation Comments Magnesium Lvl (test code = Magnesium 1.7 1.8-2.4 Lvl) [facility]2016-12-24 06:34:00 Test Item Value Reference Range Interpretation Comments Phosphorus (test code = Phosphorus) 4.2 2.5-4.5 [facility] HospitalAbnoqwcWDKURVGXIWAX1184-82-58 06:34:00 Test Item Value Reference Range Interpretation Comments AGAP (test code = AGAP) 14.3 10.0-20.0 [facility] HospitalAncmfclJZLGAQOILWFM8814-58-78 06:34:00 Test Item Value Reference Range Interpretation Comments eGFR (test code = eGFR) 41 [facility] HospitalIyjqoecRXYLPBQILPRG3194-56-21 06:34:00 Test Item Value Reference Range Interpretation Comments Chloride Lvl (test code = Chloride Lvl) 103 95-109 [facility] HospitalAoaafsqKNHSTCHPTAFP2306-51-36 06:34:00 Test Item Value Reference Range Interpretation Comments Calcium Lvl (test code = Calcium Lvl) 8.5 8.5-10.5 [facility] HospitalOowfjyoYVDZXTBBAWBJ5362-48-16 06:34:00 Test Item Value Reference Range Interpretation Comments CO2 (test code = CO2) 32 24-32 [facility] HospitalPfngzyfTAUKFCAEELAD9018-52-20 06:34:00 Test Item Value Reference Range Interpretation Comments Glucose Lvl (test code = Glucose Lvl) 173 70-99 [facility] HospitalBigqrjoINOKVCAKFCBI4464-17-67 06:34:00 Test Item Value Reference Range Interpretation Comments BUN (test code = BUN) 37 7-22 [facility] HospitalZuyggmyXFQIKHVPTSNE6937-54-19 06:34:00 Test Item Value Reference Range Interpretation Comments Creatinine Lvl (test code = Creatinine 1.63 0.50-1.40 Lvl) [facility] HospitalNjrzgkpMPTGBLXYXFIP9812-66-09 06:34:00 Test Item Value Reference Range Interpretation Comments Potassium Lvl (test code = Potassium 4.3 3.5-5.1 Lvl) [facility] HospitalYbmkjrmWOKBQHEFDDNN3468-13-97 06:34:00 Test Item Value Reference Range Interpretation Comments Sodium Lvl (test code = Sodium Lvl) 145 135-145 [facility]2016-12-24 06:34:00 Test Item Value Reference Range Interpretation Comments Magnesium Lvl (test code = Magnesium 1.7 1.8-2.4 Lvl) [facility]2016-12-24 06:34:00 Test Item Value Reference Range Interpretation Comments Phosphorus (test code = Phosphorus) 4.2 2.5-4.5 [facility] HospitalBfmmkoeERFDTYYFCHWP9129-02-31 06:34:00 Test Item Value Reference Range Interpretation Comments AGAP (test code = AGAP) 14.3 10.0-20.0 [facility] HospitalHilahylJGRPLADKDJAJ3632-61-05 06:34:00 Test Item Value Reference Range Interpretation Comments eGFR (test code = eGFR) 41 [facility] HospitalOognabdSQJBEVAVAHSY8174-07-41 06:34:00 Test Item Value Reference Range Interpretation Comments Chloride Lvl (test code = Chloride Lvl) 103 95-109 [facility] HospitalMjumdntMPUMGYZUIYCP8361-20-34 06:34:00 Test Item Value Reference Range Interpretation Comments Calcium Lvl (test code = Calcium Lvl) 8.5 8.5-10.5 [facility] HospitalAxmctysZPRYCRCYHIQX6562-75-11 06:34:00 Test Item Value Reference Range Interpretation Comments CO2 (test code = CO2) 32 24-32 [facility] HospitalLkdgxzwZNSWYPWDLOCU7489-12-46 06:34:00 Test Item Value Reference Range Interpretation Comments Glucose Lvl (test code = Glucose Lvl) 173 70-99 [facility] HospitalBbvchggMNXGPQGGGFZZ0999-40-92 06:34:00 Test Item Value Reference Range Interpretation Comments BUN (test code = BUN) 37 7-22 [facility] HospitalXuircnmSYODOSTURPQE9452-99-67 06:34:00 Test Item Value Reference Range Interpretation Comments Creatinine Lvl (test code = Creatinine 1.63 0.50-1.40 Lvl) [facility] HospitalQiztosjKARREPTISOJO1050-56-50 06:34:00 Test Item Value Reference Range Interpretation Comments Potassium Lvl (test code = Potassium 4.3 3.5-5.1 Lvl) [facility] HospitalKndhvgkTNIERIRREFCU9308-79-69 06:34:00 Test Item Value Reference Range Interpretation Comments Sodium Lvl (test code = Sodium Lvl) 145 135-145 [facility]2016-12-22 16:21:00 Test Item Value Reference Range Interpretation Comments Ammonia (test code = Ammonia) 48.0 [facility]2016-12-22 16:21:00 Test Item Value Reference Range Interpretation Comments Ammonia (test code = Ammonia) 48.0 [facility]2016-12-22 16:21:00 Test Item Value Reference Range Interpretation Comments Ammonia (test code = Ammonia) 48.0 [facility]2016-12-22 16:21:00 Test Item Value Reference Range Interpretation Comments Ammonia (test code = Ammonia) 48.0 [facility]2016-12-22 16:21:00 Test Item Value Reference Range Interpretation Comments Ammonia (test code = Ammonia) 48.0 [facility] CenterFawmcomBJZWAJFTZK6425-80-18 14:56:00 Test Item Value Reference Range Interpretation Comments IVETTE Interp (test code Pattern appears = IVETTE Interp) Nucleolar. [facility] CenterEtjvcmaTAQDDXMHTM4576-72-89 14:56:00 Test Item Value Reference Range Interpretation Comments IVETTE Titer (test code = 1:40 *ABN*(06/11/16 IVETTE Titer) 8:56 AM) [facility] CenterZswqilaVWFIHYJAUN0303-34-09 14:56:00 Test Item Value Reference Range Interpretation Comments Hep Bs Ag (test code Negative *NA*(06/11/16 = Hep Bs Ag) 8:56 AM) [facility] CenterKtxylpbJNNJKZGQDY6146-81-62 14:56:00 Test Item Value Reference Range Interpretation Comments Hep C Ab (test code = Negative *NA*(06/11/16 Hep C Ab) 8:56 AM) [facility] CenterOpwgezkGODBPIRIHC9347-04-12 14:56:00 Test Item Value Reference Range Interpretation Comments Hep B Core IgM (test Negative *NA*(06/11/16 code = Hep B Core 8:56 AM) IgM) [facility] CenterQmphaofHHMRPKEROX5660-42-98 14:56:00 Test Item Value Reference Range Interpretation Comments Hep A IgM (test code Negative *NA*(06/11/16 = Hep A IgM) 8:56 AM) [facility] CenterZsemisuYUIJIIGXWR9257-95-45 14:56:00 Test Item Value Reference Range Interpretation Comments HIV Ag/Ab 4th Gen Negative *NA*(06/11/16 (test code = HIV 8:56 AM) Ag/Ab 4th Gen) [facility] CenterJfzqrszLNHKTKOXCS9597-37-87 14:56:00 Test Item Value Reference Range Interpretation Comments IVETTE (test code = IVETTE) Positive *ABN*(06/11/16 8:56 AM) [facility] CenterGwgxfitERTPUPEXEC7468-65-24 14:56:00 Test Item Value Reference Range Interpretation Comments IVETTE Interp (test code Pattern appears = IVETTE Interp) Nucleolar. [facility] CenterExampmwJBRQJFAAIZ2685-91-37 14:56:00 Test Item Value Reference Range Interpretation Comments IVETTE Titer (test code = 1:40 *ABN*(06/11/16 IVETTE Titer) 8:56 AM) [facility] CenterIkhhtsrZZEJIGUMPS2216-13-28 14:56:00 Test Item Value Reference Range Interpretation Comments Hep Bs Ag (test code Negative *NA*(06/11/16 = Hep Bs Ag) 8:56 AM) [facility] CenterRslitdaSVOCRGAJOZ6275-17-15 14:56:00 Test Item Value Reference Range Interpretation Comments Hep C Ab (test code = Negative *NA*(06/11/16 Hep C Ab) 8:56 AM) [facility] CenterSwdpxnsUBAIUMQHRG6819-59-41 14:56:00 Test Item Value Reference Range Interpretation Comments Hep B Core IgM (test Negative *NA*(06/11/16 code = Hep B Core 8:56 AM) IgM) [facility] CenterVuuzpslOIJVLOQAGF5070-13-42 14:56:00 Test Item Value Reference Range Interpretation Comments Hep A IgM (test code Negative *NA*(06/11/16 = Hep A IgM) 8:56 AM) [facility] CenterKjoohkmWFNXKZIVYI1267-51-75 14:56:00 Test Item Value Reference Range Interpretation Comments HIV Ag/Ab 4th Gen Negative *NA*(06/11/16 (test code = HIV 8:56 AM) Ag/Ab 4th Gen) [facility] CenterVmdpuguTIXZDHZEGS1644-89-62 14:56:00 Test Item Value Reference Range Interpretation Comments IVETTE (test code = IVETTE) Positive *ABN*(06/11/16 8:56 AM) [facility] CenterNtigscsVYQCGWAZYC5597-74-57 14:56:00 Test Item Value Reference Range Interpretation Comments IVETTE Interp (test code Pattern appears = IVETTE Interp) Nucleolar. [facility] CenterNbhwjpuDGIBKWPQQX7932-94-96 14:56:00 Test Item Value Reference Range Interpretation Comments IVETTE Titer (test code = 1:40 *ABN*(06/11/16 IVETTE Titer) 8:56 AM) [facility] CenterKauvdxnMPFBTJLQHW2658-80-31 14:56:00 Test Item Value Reference Range Interpretation Comments Hep Bs Ag (test code Negative *NA*(06/11/16 = Hep Bs Ag) 8:56 AM) [facility] CenterIljoavzSKTWADGEWZ4669-15-80 14:56:00 Test Item Value Reference Range Interpretation Comments Hep C Ab (test code = Negative *NA*(06/11/16 Hep C Ab) 8:56 AM) [facility] CenterObdjcwlJPPWKNRJVP3124-04-28 14:56:00 Test Item Value Reference Range Interpretation Comments Hep B Core IgM (test Negative *NA*(06/11/16 code = Hep B Core 8:56 AM) IgM) [facility] CenterOfmxotqCZVYNCNIAW4929-86-75 14:56:00 Test Item Value Reference Range Interpretation Comments Hep A IgM (test code Negative *NA*(06/11/16 = Hep A IgM) 8:56 AM) [facility] CenterAecpbrgCHZWMARYSM5131-14-31 14:56:00 Test Item Value Reference Range Interpretation Comments HIV Ag/Ab 4th Gen Negative *NA*(06/11/16 (test code = HIV 8:56 AM) Ag/Ab 4th Gen) [facility] CenterTdfveszFFZMPPZFIQ9948-11-10 14:56:00 Test Item Value Reference Range Interpretation Comments IVETTE (test code = IVETTE) Positive *ABN*(06/11/16 8:56 AM) [facility] CenterGxlmcpfESPRXZNRQD4018-95-38 14:56:00 Test Item Value Reference Range Interpretation Comments IVETTE Interp (test code Pattern appears = IVETTE Interp) Nucleolar. [facility] CenterJllxjsvMQCTBUVDTX0360-74-18 14:56:00 Test Item Value Reference Range Interpretation Comments IVETTE Titer (test code = 1:40 *ABN*(06/11/16 IVETTE Titer) 8:56 AM) [facility] CenterIbgocdxYVQSKDZGFS6438-30-78 14:56:00 Test Item Value Reference Range Interpretation Comments Hep Bs Ag (test code Negative *NA*(06/11/16 = Hep Bs Ag) 8:56 AM) [facility] CenterZkuyzzdZHOPFZCHYB9206-48-61 14:56:00 Test Item Value Reference Range Interpretation Comments Hep C Ab (test code = Negative *NA*(06/11/16 Hep C Ab) 8:56 AM) [facility] CenterZvxhzlmQWCOZRVQYT4679-52-77 14:56:00 Test Item Value Reference Range Interpretation Comments Hep B Core IgM (test Negative *NA*(06/11/16 code = Hep B Core 8:56 AM) IgM) [facility] CenterUqxnttxRXBLPOACME9152-98-44 14:56:00 Test Item Value Reference Range Interpretation Comments Hep A IgM (test code Negative *NA*(06/11/16 = Hep A IgM) 8:56 AM) [facility] CenterLqlfnslLGFNSAIGUU0012-41-58 14:56:00 Test Item Value Reference Range Interpretation Comments HIV Ag/Ab 4th Gen Negative *NA*(06/11/16 (test code = HIV 8:56 AM) Ag/Ab 4th Gen) [facility] CenterXklhyjeOTEYPSFBWG8369-90-11 14:56:00 Test Item Value Reference Range Interpretation Comments IVETTE (test code = IVETTE) Positive *ABN*(06/11/16 8:56 AM) [facility] CenterYhqhzlhSJAFOEBXYU5478-61-53 14:56:00 Test Item Value Reference Range Interpretation Comments IVETTE Interp (test code Pattern appears = IVETTE Interp) Nucleolar. [facility] CenterKysrlulDYEEKBLUSB9011-36-14 14:56:00 Test Item Value Reference Range Interpretation Comments IVETTE Titer (test code = 1:40 *ABN*(06/11/16 IVETTE Titer) 8:56 AM) [facility] CenterKystqylHNUDIKXGTQ5904-76-26 14:56:00 Test Item Value Reference Range Interpretation Comments Hep Bs Ag (test code Negative *NA*(06/11/16 = Hep Bs Ag) 8:56 AM) [facility] CenterYfwxusnJLQZKFJMTB5600-72-30 14:56:00 Test Item Value Reference Range Interpretation Comments Hep C Ab (test code = Negative *NA*(06/11/16 Hep C Ab) 8:56 AM) [facility] CenterCwwmpmkNAOWISOCQY2349-88-48 14:56:00 Test Item Value Reference Range Interpretation Comments Hep B Core IgM (test Negative *NA*(06/11/16 code = Hep B Core 8:56 AM) IgM) [facility] CenterAuycrefCEDYWMWLWX3068-92-59 14:56:00 Test Item Value Reference Range Interpretation Comments Hep A IgM (test code Negative *NA*(06/11/16 = Hep A IgM) 8:56 AM) [facility] CenterLjgstsyHAQEXLFTCJ0308-32-98 14:56:00 Test Item Value Reference Range Interpretation Comments HIV Ag/Ab 4th Gen Negative *NA*(06/11/16 (test code = HIV 8:56 AM) Ag/Ab 4th Gen) [facility] CenterYnajeuxHDGOKZOCAG3649-32-96 14:56:00 Test Item Value Reference Range Interpretation Comments IVETTE (test code = IVETTE) Positive *ABN*(06/11/16 8:56 AM) [facility]2016-12-22 10:42:00 Test Item Value Reference Range Interpretation Comments Bili Total (test code = Bili Total) 0.1 0.2-1.3 [facility]2016-12-22 10:42:00 Test Item Value Reference Range Interpretation Comments Total Protein (test code = Total 5.2 6.4-8.4 Protein) [facility]2016-12-22 10:42:00 Test Item Value Reference Range Interpretation Comments Albumin Lvl (test code = Albumin Lvl) 1.6 3.5-5.0 [facility]2016-12-22 10:42:00 Test Item Value Reference Range Interpretation Comments B/C Ratio (test code = B/C Ratio) 20 6-25 [facility]2016-12-22 10:42:00 Test Item Value Reference Range Interpretation Comments Globulin (test code = Globulin) 3.6 2.7-4.2 [facility]2016-12-22 10:42:00 Test Item Value Reference Range Interpretation Comments A/G Ratio (test code = A/G Ratio) 0.4 0.7-1.6 [facility]2016-12-22 10:42:00 Test Item Value Reference Range Interpretation Comments Alk Phos (test code = Alk Phos) 74 39-136 [facility]2016-12-22 10:42:00 Test Item Value Reference Range Interpretation Comments ALT (test code = ALT) 14 See_Comment [Auto mated message] The system which ge nerated this result transmit rohit reference range : <=65. The reference range was not used to interpr et this result as reji l/abnormal. [facility]2016-12-22 10:42:00 Test Item Value Reference Range Interpretation Comments AST (test code = AST) 13 See_Comment [Auto mated message] The system which ge nerated this result transmit rohit reference range : <=37. The reference range was not used to interpr et this result as reji l/abnormal. [facility]qfwzVNCEHUPXUH4842-70-22 10:42:00 Test Item Value Reference Range Interpretation Comments INR (test code = INR) 1.06 0.85-1.17 [facility]PidjvfxSOABDBHMEZ6050-14-40 10:42:00 Test Item Value Reference Range Interpretation Comments PT (test code = PT) 14.0 s 12.0-14.7 [facility]anoDwgmebjOONPYMVIUZ9213-98-94 10:42:00 Test Item Value Reference Range Interpretation Comments PTT (test code = PTT) 36.4 s 22.9-35.8 [facility] DMERDLDKZ7541-71-61 10:42:00 Test Item Value Reference Range Interpretation Comments Hgb A1C (test code = Hgb A1C) 10.5 [facility]2016-12-22 10:42:00 Test Item Value Reference Range Interpretation Comments Bili Total (test code = Bili Total) 0.1 0.2-1.3 [facility]2016-12-22 10:42:00 Test Item Value Reference Range Interpretation Comments Total Protein (test code = Total 5.2 6.4-8.4 Protein) [facility]2016-12-22 10:42:00 Test Item Value Reference Range Interpretation Comments Albumin Lvl (test code = Albumin Lvl) 1.6 3.5-5.0 [facility]2016-12-22 10:42:00 Test Item Value Reference Range Interpretation Comments B/C Ratio (test code = B/C Ratio) 20 6-25 [facility]2016-12-22 10:42:00 Test Item Value Reference Range Interpretation Comments Globulin (test code = Globulin) 3.6 2.7-4.2 [facility]2016-12-22 10:42:00 Test Item Value Reference Range Interpretation Comments A/G Ratio (test code = A/G Ratio) 0.4 0.7-1.6 [facility]2016-12-22 10:42:00 Test Item Value Reference Range Interpretation Comments Alk Phos (test code = Alk Phos) 74 39-136 [facility]2016-12-22 10:42:00 Test Item Value Reference Range Interpretation Comments ALT (test code = ALT) 14 See_Comment [Auto mated message] The system which ge nerated this result transmit rohit reference range : <=65. The reference range was not used to interpr et this result as reji l/abnormal. [facility]2016-12-22 10:42:00 Test Item Value Reference Range Interpretation Comments AST (test code = AST) 13 See_Comment [Auto mated message] The system which ge nerated this result transmit rohit reference range : <=37. The reference range was not used to interpr et this result as reji l/abnormal. [facility]anoZbugynsNHZCQFUWNY7332-33-40 10:42:00 Test Item Value Reference Range Interpretation Comments INR (test code = INR) 1.06 0.85-1.17 [facility]anoAztsqrxZNHBSHQBUC3727-86-13 10:42:00 Test Item Value Reference Range Interpretation Comments PT (test code = PT) 14.0 s 12.0-14.7 [facility]anoUvrmkzzZGRITYEUWI8654-00-55 10:42:00 Test Item Value Reference Range Interpretation Comments PTT (test code = PTT) 36.4 s 22.9-35.8 [facility] HNKELBHGJ3978-28-12 10:42:00 Test Item Value Reference Range Interpretation Comments Hgb A1C (test code = Hgb A1C) 10.5 [facility]2016-12-22 10:42:00 Test Item Value Reference Range Interpretation Comments Bili Total (test code = Bili Total) 0.1 0.2-1.3 [place] 159636-12-22 10:42:00 Test Item Value Reference Range Interpretation Comments Total Protein (test code = Total 5.2 6.4-8.4 Protein) [place] [address]-12-22 10:42:00 Test Item Value Reference Range Interpretation Comments Albumin Lvl (test code = Albumin Lvl) 1.6 3.5-5.0 [place] 159636-12-22 10:42:00 Test Item Value Reference Range Interpretation Comments B/C Ratio (test code = B/C Ratio) 20 6-25 [place] 159636-12-22 10:42:00 Test Item Value Reference Range Interpretation Comments Globulin (test code = Globulin) 3.6 2.7-4.2 [place] 159636-12-22 10:42:00 Test Item Value Reference Range Interpretation Comments A/G Ratio (test code = A/G Ratio) 0.4 0.7-1.6 [place] 159636-12-22 10:42:00 Test Item Value Reference Range Interpretation Comments Alk Phos (test code = Alk Phos) 74 39-136 [facility]2016-12-22 10:42:00 Test Item Value Reference Range Interpretation Comments ALT (test code = ALT) 14 See_Comment [Auto mated message] The system which ge nerated this result transmit rohit reference range : <=65. The reference range was not used to interpr et this result as reji l/abnormal. [place] 159636-12-22 10:42:00 Test Item Value Reference Range Interpretation Comments AST (test code = AST) 13 See_Comment [Auto mated message] The system which ge nerated this result transmit rohit reference range : <=37. The reference range was not used to interpr et this result as reji l/abnormal. [place] 368086-12-22 10:42:00 Test Item Value Reference Range Interpretation Comments INR (test code = INR) 1.06 0.85-1.[address]12-22 10:42:00 Test Item Value Reference Range Interpretation Comments PT (test code = PT) 14.0 s 12.0-14.7 [facility]BoggnasOMBLXRMBVH4270-21-55 10:42:00 Test Item Value Reference Range Interpretation Comments PTT (test code = PTT) 36.4 s 22.9-35.8 [facility] CQVFFAAVQ8515-66-28 10:42:00 Test Item Value Reference Range Interpretation Comments Hgb A1C (test code = Hgb A1C) 10.5 [facility]2016-12-22 10:42:00 Test Item Value Reference Range Interpretation Comments Bili Total (test code = Bili Total) 0.1 0.2-1.3 [facility]2016-12-22 10:42:00 Test Item Value Reference Range Interpretation Comments Total Protein (test code = Total 5.2 6.4-8.4 Protein) [facility]2016-12-22 10:42:00 Test Item Value Reference Range Interpretation Comments Albumin Lvl (test code = Albumin Lvl) 1.6 3.5-5.0 [facility]2016-12-22 10:42:00 Test Item Value Reference Range Interpretation Comments B/C Ratio (test code = B/C Ratio) 20 6-25 [facility]2016-12-22 10:42:00 Test Item Value Reference Range Interpretation Comments Globulin (test code = Globulin) 3.6 2.7-4.2 [facility]2016-12-22 10:42:00 Test Item Value Reference Range Interpretation Comments A/G Ratio (test code = A/G Ratio) 0.4 0.7-1.6 [facility]2016-12-22 10:42:00 Test Item Value Reference Range Interpretation Comments Alk Phos (test code = Alk Phos) 74 39-136 [facility]2016-12-22 10:42:00 Test Item Value Reference Range Interpretation Comments ALT (test code = ALT) 14 See_Comment [Auto mated message] The system which ge nerated this result transmit rohit reference range : <=65. The reference range was not used to interpr et this result as reji l/abnormal. [facility]2016-12-22 10:42:00 Test Item Value Reference Range Interpretation Comments AST (test code = AST) 13 See_Comment [Auto mated message] The system which ge nerated this result transmit rohit reference range : <=37. The reference range was not used to interpr et this result as reji l/abnormal. [id number] 10:42:00 Test Item Value Reference Range Interpretation Comments INR (test code = INR) 1.06 0.85-1.17 [id number] 10:42:00 Test Item Value Reference Range Interpretation Comments PT (test code = PT) 14.0 s 12.0-14.7 [facility] C[id number] 10:42:00 Test Item Value Reference Range Interpretation Comments PTT (test code = PTT) 36.4 s 22.9-35.8 [facility] [id number] 10:42:00 Test Item Value Reference Range Interpretation Comments Hgb A1C (test code = Hgb A1C) 10.5 [facility] [id number] 10:42:00 Test Item Value Reference Range Interpretation Comments Bili Total (test code = Bili Total) 0.1 0.2-1.3 [facility]2016-12-22 10:42:00 Test Item Value Reference Range Interpretation Comments Total Protein (test code = Total 5.2 6.4-8.4 Protein) [facility]2016-12-22 10:42:00 Test Item Value Reference Range Interpretation Comments Albumin Lvl (test code = Albumin Lvl) 1.6 3.5-5.0 [facility] [id number] 10:42:00 Test Item Value Reference Range Interpretation Comments B/C Ratio (test code = B/C Ratio) 20 6-25 [facility] [id number] 10:42:00 Test Item Value Reference Range Interpretation Comments Globulin (test code = Globulin) 3.6 2.7-4.2 [facility]2016-12-22 10:42:00 Test Item Value Reference Range Interpretation Comments A/G Ratio (test code = A/G Ratio) 0.4 0.7-1.6 [facility] [id number] 10:42:00 Test Item Value Reference Range Interpretation Comments Alk Phos (test code = Alk Phos) 74 39-136 [facility] [id number] 10:42:00 Test Item Value Reference Range Interpretation Comments ALT (test code = ALT) 14 See_Comment [Auto mated message] The system which ge nerated this result transmit rohit reference range : <=65. The reference range was not used to interpr et this result as reji l/abnormal. [facility] [id number] 10:42:00 Test Item Value Reference Range Interpretation Comments AST (test code = AST) 13 See_Comment [Auto mated message] The system which ge nerated this result transmit rohit reference range : <=37. The reference range was not used to interpr et this result as reji l/abnormal. [id number] 10:42:00 Test Item Value Reference Range Interpretation Comments INR (test code = INR) 1.06 0.85-1.17 [facility] [id number] 10:42:00 Test Item Value Reference Range Interpretation Comments PT (test code = PT) 14.0 s 12.0-14.7 [facility] [id number] 10:42:00 Test Item Value Reference Range Interpretation Comments PTT (test code = PTT) 36.4 s 22.9-35.8 [facility] [id number] 10:42:00 Test Item Value Reference Range Interpretation Comments Hgb A1C (test code = Hgb A1C) 10.5 [facility] CenterCARFocal Point PharmaceuticalsAC [id number] 02:08:00 Test Item Value Reference Range Interpretation Comments CK MB Index (test 1.8 See_Comment [Automate d message] The code = CK MB Index) system w [facility] generated this result transmit rohit reference range : <=2.5. The reference range was not used to interpr et this result as reji l/abnormal. [facility] CenterWear My TagsAC [id number] 02:08:00 Test Item Value Reference Range Interpretation Comments CK MB (test code = CK MB) 2.9 0.5-3.6 [facility] CenterTakeacoderAC [id number] 02:08:00 Test Item Value Reference Range Interpretation Comments Troponin-T (test code 0.061 See_Comment [Auto mated message] The = Troponin-T) system which g enerated this result transmit rohit reference range : <=0.100. The reference r leo was not used to interpr et this result as reji l/abnormal. [facility](ye)BRAINCARFocal Point Pharmaceuticals [id number] 02:08:00 Test Item Value Reference Range Interpretation Comments Total CK (test code = Total CK) 159 12-191 [facility] CenterWear My Tags [id number] 02:08:00 Test Item Value Reference Range Interpretation Comments Troponin-I (test code no gt See_Comment [Auto mated message] The = Troponin-I) system which g enerated this result transmit rohit reference range : <=0.40. The reference r leo was not used to interpr et this result as reji l/abnormal. [facility] [employer] [id number] 02:08:00 Test Item Value Reference Range Interpretation Comments Bili Total (test code = Bili Total) 0.2 0.2-1.3 [facility] [employer] [id number] 02:08:00 Test Item Value Reference Range Interpretation Comments Bili Direct (test code 0.1 See_Comment [Aut omated message] The = Bili Direct) system which generated this result tra nsmitted reference range : <=0.3. The reference r leo was not used to int erpret this result as reji l/abnormal. [facility] [employer] [id number] 02:08:00 Test Item Value Reference Range Interpretation Comments Bili Indirect (test 0.1 See_Comment [Automa rohit message] The code = Bili Indirect) system which generated this result tra nsmitted reference range : <=1.0. The reference r leo was not used to int erpret this result as normal/abnormal . [facility] [employer] [id number] 02:08:00 Test Item Value Reference Range Interpretation Comments Total Protein (test code = Total 5.7 6.4-8.4 Protein) [facility]icsT[facility] Assignment [id number] 02:08:00 Test Item Value Reference Range Interpretation Comments A/G Ratio (test code = A/G Ratio) 0.5 0.7-1.6 [facility] [employer] [id number] 02:08:00 Test Item Value Reference Range Interpretation Comments Albumin Lvl (test code = Albumin Lvl) 1.8 3.5-5.0 [facility] [employer] [id number] 02:08:00 Test Item Value Reference Range Interpretation Comments Globulin (test code = Globulin) 3.9 2.7-4.2 [facility] [employer] [id number] 02:08:00 Test Item Value Reference Range Interpretation Comments Alk Phos (test code = Alk Phos) 99 39-136 [facility] [employer] [id number] 02:08:00 Test Item Value Reference Range Interpretation Comments AST (test code = AST) 21 See_Comment [Auto mated message] The system which ge nerated this result transmit rohit reference range : <=37. The reference range was not used to interpr et this result as reji l/abnormal. [facility] [employer] [id number] 02:08:00 Test Item Value Reference Range Interpretation Comments ALT (test code = ALT) 17 See_Comment [Auto mated message] The system which ge nerated this result transmit rohit reference range : <=65. The reference range was not used to interpr et this result as reji l/abnormal. [facility] [employer] [id number] 02:08:00 Test Item Value Reference Range Interpretation Comments UDS Note (test code = See Note *NA*(06/10/16 UDS Note) 8:08 PM) [facility] [employer] [id number] 02:08:00 Test Item Value Reference Range Interpretation Comments U Propoxyph Scr (test Negative *NA*(06/10/16 code = U Propoxyph Scr) 8:08 PM) [facility] [employer] [id number] 02:08:00 Test Item Value Reference Range Interpretation Comments U Opiate Scr (test Negative *NA*(06/10/16 code = U Opiate Scr) 8:08 PM) [facility] [employer] [id number] 02:08:00 Test Item Value Reference Range Interpretation Comments U Methadone Scr (test Negative *NA*(06/10/16 code = U Methadone Scr) 8:08 PM) [facility] ClinicsannDR[facility] [id number] 02:08:00 Test Item Value Reference Range Interpretation Comments U Phencyc Scr (test Negative *NA*(06/10/16 code = U Phencyc Scr) 8:08 PM) [facility] [employer] [id number] 02:08:00 Test Item Value Reference Range Interpretation Comments U Cannab Scr (test Negative *NA*(06/10/16 code = U Cannab Scr) 8:08 PM) [facility] [id number] 02:08:00 Test Item Value Reference Range Interpretation Comments U Amph Scr (test code Negative *NA*(06/10/16 = U Amph Scr) 8:08 PM) [facility] [id number] 02:08:00 Test Item Value Reference Range Interpretation Comments U Kelly Scr (test code Negative *NA*(06/10/16 = U Kelly Scr) 8:08 PM) [facility] [id number] 02:08:00 Test Item Value Reference Range Interpretation Comments U Benzodia Scr (test Negative *NA*(06/10/16 code = U Benzodia Scr) 8:08 PM) [facility] [id number] 02:08:00 Test Item Value Reference Range Interpretation Comments U Cocaine Scr (test Negative *NA*(06/10/16 code = U Cocaine Scr) 8:08 PM) [facility] [id number] 02:08:00 Test Item Value Reference Range Interpretation Comments LDL (Calculated) (test code = LDL 75 (Calculated)) [facility] [id number] 02:08:00 Test Item Value Reference Range Interpretation Comments VLDL (test code = VLDL) 27 [facility] [id number] 02:08:00 Test Item Value Reference Range Interpretation Comments Chol (test code = Chol) 133 [facility] [id number] 02:08:00 Test Item Value Reference Range Interpretation Comments Trig (test code = Trig) 133 [facility] [id number] 02:08:00 Test Item Value Reference Range Interpretation Comments CHD Risk (test code = CHD Risk) 4.29 3.90-5.80 [facility] [id number] 02:08:00 Test Item Value Reference Range Interpretation Comments HDL (test code = HDL) 31 [facility] [id number] 02:08:00 Test Item Value Reference Range Interpretation Comments UA Urobilinogen (test code = UA <=1.0 mg/dL 0.1-1.0 Urobilinogen) [facility] [id number] 02:08:00 Test Item Value Reference Range Interpretation Comments UA Ketones (test code = UA Negative mg/dL Ketones) [facility] AND [id number] 02:08:00 Test Item Value Reference Range Interpretation Comments UA Glucose (test code = UA Glucose) 300 mg/dL [facility] AND [id number] 02:08:00 Test Item Value Reference Range Interpretation Comments UA Protein (test code = UA >=300 mg/dL Protein) [facility] AND [id number] 02:08:00 Test Item Value Reference Range Interpretation Comments UA pH (test code = UA pH) 6.0 5.0-8.0 [facility] AND [id number] 02:08:00 Test Item Value Reference Range Interpretation Comments UA Nitrite (test code Negative (06/10/16 8:08 = UA Nitrite) PM) [facility] AND [id number] 02:08:00 Test Item Value Reference Range Interpretation Comments UA Blood (test code = Trace *ABN*(06/10/16 UA Blood) 8:08 PM) [facility] AND [id number] 02:08:00 Test Item Value Reference Range Interpretation Comments UA Bili (test code = Negative *NA*(06/10/16 UA Bili) 8:08 PM) [facility] AND [id number] 02:08:00 Test Item Value Reference Range Interpretation Comments UA Mucus (test code = UA Mucus) Few /LPF [facility] AND [id number] 02:08:00 Test Item Value Reference Range Interpretation Comments UA RBC (test code = 4 See_Comment [Automa rohit message] The UA RBC) system which ge nerated this result transmit rohit reference range : <=2. The reference range was not used to interpr et this result as reji l/abnormal. [facility] AND [id number] 02:08:00 Test Item Value Reference Range Interpretation Comments UA Sq Epi (test code = UA Sq Epi) Few /LPF [facility] AND [id number] 02:08:00 Test Item Value Reference Range Interpretation Comments UA WBC (test code = 5 See_Comment [Automa rohit message] The UA WBC) system which ge nerated this result transmit rohit reference range : <=5. The reference range was not used to interpr et this result as reji l/abnormal. [facility] [id number] 02:08:00 Test Item Value Reference Range Interpretation Comments UA Leuk Est (test code Small *ABN*(06/10/16 = UA Leuk Est) 8:08 PM) [facility] [id number] 02:08:00 Test Item Value Reference Range Interpretation Comments UA Hyal Cast (test 1 See_Comment [Automat ed message] The code = UA Hyal Cast) system which generated this result transmit rohit reference range : <=2. The reference range was not used to interpr et this result as reji l/abnormal. [facility] AND [id number] 02:08:00 Test Item Value Reference Range Interpretation Comments UA Spec Grav (test code = UA Spec Grav) 1.009 [facility] AND [id number] 02:08:00 Test Item Value Reference Range Interpretation Comments UA Color (test code = Yellow *NA*(06/10/16 UA Color) 8:08 PM) [facility] [id number] 02:08:00 Test Item Value Reference Range Interpretation Comments UA Turbidity (test code = Clear (06/10/16 8:08 UA Turbidity) PM) [facility] [id number] 02:08:00 Test Item Value Reference Range Interpretation Comments U Preg (test code = U Negative (06/10/16 8:08 Preg) PM) [facility] [id number] 02:08:00 Test Item Value Reference Range Interpretation Comments U Protein (test code = U Protein) 375.4 [facility] [id number] 02:08:00 Test Item Value Reference Range Interpretation Comments U Prot/Creat (test code = U Prot/Creat) 5.4 [facility] [id number] 02:08:00 Test Item Value Reference Range Interpretation Comments U Creatinine (test code = U Creatinine) 69.80 [facility]annCARD[facility]AC [id number] 02:08:00 Test Item Value Reference Range Interpretation Comments CK MB Index (test 1.8 See_Comment [Automate d message] The code = CK MB Index) system w [facility] generated this result transmit rohit reference range : <=2.5. The reference range was not used to interpr et this result as reji l/abnormal. [facility] [employer] [id number] 02:08:00 Test Item Value Reference Range Interpretation Comments CK MB (test code = CK MB) 2.9 0.5-3.6 [facility] Center[facility] [id number] 02:08:00 Test Item Value Reference Range Interpretation Comments Troponin-T (test code 0.061 See_Comment [Auto mated message] The = Troponin-T) system which g enerated this result transmit rohit reference range : <=0.100. The reference r leo was not used to interpr et this result as reji l/abnormal. [facility] [employer]2016-12-22 02:08:00 Test Item Value Reference Range Interpretation Comments Total CK (test code = Total CK) 159 12-191 [facility] ClinicsChibwe [id number] 02:08:00 Test Item Value Reference Range Interpretation Comments Troponin-I (test code no gt See_Comment [Auto mated message] The = Troponin-I) system which g enerated this result transmit rohit reference range : <=0.40. The reference r leo was not used to interpr et this result as reji l/abnormal. [facility] [employer]2016-12-22 02:08:00 Test Item Value Reference Range Interpretation Comments Bili Total (test code = Bili Total) 0.2 0.2-1.3 [facility] [employer]2016-12-22 02:08:00 Test Item Value Reference Range Interpretation Comments Bili Direct (test code 0.1 See_Comment [Aut omated message] The = Bili Direct) system which generated this result tra nsmitted reference range : <=0.3. The reference r leo was not used to int erpret this result as reji l/abnormal. [facility] [employer]2016-12-22 02:08:00 Test Item Value Reference Range Interpretation Comments Bili Indirect (test 0.1 See_Comment [Automa rohit message] The code = Bili Indirect) system which generated this result tra nsmitted reference range : <=1.0. The reference r leo was not used to int erpret this result as normal/abnormal . [employer] [id number] 02:08:00 Test Item Value Reference Range Interpretation Comments Total Protein (test code = Total 5.7 6.4-8.4 Protein) [facility] [id number] 02:08:00 Test Item Value Reference Range Interpretation Comments A/G Ratio (test code = A/G Ratio) 0.5 0.7-1.6 [facility]icsT[facility] Ass[facility] [id number] 02:08:00 Test Item Value Reference Range Interpretation Comments Albumin Lvl (test code = Albumin Lvl) 1.8 3.5-5.0 [facility]icsT[facility] Assignment [id number] 02:08:00 Test Item Value Reference Range Interpretation Comments Globulin (test code = Globulin) 3.9 2.7-4.2 [facility]icsT[facility] Assignment [id number] 02:08:00 Test Item Value Reference Range Interpretation Comments Alk Phos (test code = Alk Phos) 99 39-136 [facility]icsT[facility] Assignment [id number] 02:08:00 Test Item Value Reference Range Interpretation Comments AST (test code = AST) 21 See_Comment [Auto mated message] The system which ge nerated this result transmit rohit reference range : <=37. The reference range was not used to interpr et this result as reji l/abnormal. [facility]icsT[facility] Assignment [id number] 02:08:00 Test Item Value Reference Range Interpretation Comments ALT (test code = ALT) 17 See_Comment [Auto mated message] The system which ge nerated this result transmit rohit reference range : <=65. The reference range was not used to interpr et this result as reji l/abnormal. [facility] [employer] [id number] 02:08:00 Test Item Value Reference Range Interpretation Comments UDS Note (test code = See Note *NA*(06/10/16 UDS Note) 8:08 PM) [facility]ics[facility] [id number] 02:08:00 Test Item Value Reference Range Interpretation Comments U Propoxyph Scr (test Negative *NA*(06/10/16 code = U Propoxyph Scr) 8:08 PM) [facility]ics[facility] [id number] 02:08:00 Test Item Value Reference Range Interpretation Comments U Opiate Scr (test Negative *NA*(06/10/16 code = U Opiate Scr) 8:08 PM) [facility] [id number] 02:08:00 Test Item Value Reference Range Interpretation Comments U Methadone Scr (test Negative *NA*(06/10/16 code = U Methadone Scr) 8:08 PM) [facility] [id number] 02:08:00 Test Item Value Reference Range Interpretation Comments U Phencyc Scr (test Negative *NA*(06/10/16 code = U Phencyc Scr) 8:08 PM) [facility] [id number] 02:08:00 Test Item Value Reference Range Interpretation Comments U Cannab Scr (test Negative *NA*(06/10/16 code = U Cannab Scr) 8:08 PM) [facility] [id number] 02:08:00 Test Item Value Reference Range Interpretation Comments U Amph Scr (test code Negative *NA*(06/10/16 = U Amph Scr) 8:08 PM) [facility]ics[facility]DR[facility] [id number] 02:08:00 Test Item Value Reference Range Interpretation Comments U Kelly Scr (test code Negative *NA*(06/10/16 = U Kelly Scr) 8:08 PM) [facility] [id number] 02:08:00 Test Item Value Reference Range Interpretation Comments U Benzodia Scr (test Negative *NA*(06/10/16 code = U Benzodia Scr) 8:08 PM) [facility]DR[facility] [id number] 02:08:00 Test Item Value Reference Range Interpretation Comments U Cocaine Scr (test Negative *NA*(06/10/16 code = U Cocaine Scr) 8:08 PM) [facility] [id number] 02:08:00 Test Item Value Reference Range Interpretation Comments LDL (Calculated) (test code = LDL 75 (Calculated)) [facility] [id number] 02:08:00 Test Item Value Reference Range Interpretation Comments VLDL (test code = VLDL) 27 [facility] [id number] 02:08:00 Test Item Value Reference Range Interpretation Comments Chol (test code = Chol) 133 [facility] [id number] 02:08:00 Test Item Value Reference Range Interpretation Comments Trig (test code = Trig) 133 [facility] [id number] 02:08:00 Test Item Value Reference Range Interpretation Comments CHD Risk (test code = CHD Risk) 4.29 3.90-5.80 [facility] [id number] 02:08:00 Test Item Value Reference Range Interpretation Comments HDL (test code = HDL) 31 [facility] AND [id number] 02:08:00 Test Item Value Reference Range Interpretation Comments UA Urobilinogen (test code = UA <=1.0 mg/dL 0.1-1.0 Urobilinogen) [facility] AND [id number] 02:08:00 Test Item Value Reference Range Interpretation Comments UA Ketones (test code = UA Negative mg/dL Ketones) [facility] AND [id number] 02:08:00 Test Item Value Reference Range Interpretation Comments UA Glucose (test code = UA Glucose) 300 mg/dL [facility] AND [id number] 02:08:00 Test Item Value Reference Range Interpretation Comments UA Protein (test code = UA >=300 mg/dL Protein) [facility] AND [id number] 02:08:00 Test Item Value Reference Range Interpretation Comments UA pH (test code = UA pH) 6.0 5.0-8.0 [facility] AND [id number] 02:08:00 Test Item Value Reference Range Interpretation Comments UA Nitrite (test code Negative (06/10/16 8:08 = UA Nitrite) PM) [facility] AND [id number] 02:08:00 Test Item Value Reference Range Interpretation Comments UA Blood (test code = Trace *ABN*(06/10/16 UA Blood) 8:08 PM) [facility] AND [id number] 02:08:00 Test Item Value Reference Range Interpretation Comments UA Bili (test code = Negative *NA*(06/10/16 UA Bili) 8:08 PM) [facility] AND [id number] 02:08:00 Test Item Value Reference Range Interpretation Comments UA Mucus (test code = UA Mucus) Few /LPF [facility] AND [id number] 02:08:00 Test Item Value Reference Range Interpretation Comments UA RBC (test code = 4 See_Comment [Automa rohit message] The UA RBC) system which ge nerated this result transmit rohit reference range : <=2. The reference range was not used to interpr et this result as reji l/abnormal. [facility] [id number] 02:08:00 Test Item Value Reference Range Interpretation Comments UA Sq Epi (test code = UA Sq Epi) Few /LPF [facility] AND [id number] 02:08:00 Test Item Value Reference Range Interpretation Comments UA WBC (test code = 5 See_Comment [Automa rohit message] The UA WBC) system which ge nerated this result transmit rohit reference range : <=5. The reference range was not used to interpr et this result as reji l/abnormal. [facility] K[employer]n AND [id number] 02:08:00 Test Item Value Reference Range Interpretation Comments UA Leuk Est (test code Small *ABN*(06/10/16 = UA Leuk Est) 8:08 PM) [facility] AND [id number] 02:08:00 Test Item Value Reference Range Interpretation Comments UA Hyal Cast (test 1 See_Comment [Automat ed message] The code = UA Hyal Cast) system which generated this result transmit rohit reference range : <=2. The reference range was not used to interpr et this result as reji l/abnormal. [facility] Katelyn AND [id number] 02:08:00 Test Item Value Reference Range Interpretation Comments UA Spec Grav (test code = UA Spec Grav) 1.009 [facility]GRE[facility] P[facility] [facility] [id number] 02:08:00 Test Item Value Reference Range Interpretation Comments UA Color (test code = Yellow *NA*(06/10/16 UA Color) 8:08 PM) [facility] AND [id number] 02:08:00 Test Item Value Reference Range Interpretation Comments UA Turbidity (test code = Clear (06/10/16 8:08 UA Turbidity) PM) [facility]2016-12-22 02:08:00 Test Item Value Reference Range Interpretation Comments U Preg (test code = U Negative (06/10/16 8:08 Preg) PM) [facility]2016-12-22 02:08:00 Test Item Value Reference Range Interpretation Comments U Protein (test code = U Protein) 375.4 [facility]2016-12-22 02:08:00 Test Item Value Reference Range Interpretation Comments U Prot/Creat (test code = U Prot/Creat) 5.4 [facility] VinURINE [id number] 02:08:00 Test Item Value Reference Range Interpretation Comments U Creatinine (test code = U Creatinine) 69.80 [facility] VinCARDIAC [id number] 02:08:00 Test Item Value Reference Range Interpretation Comments CK MB Index (test 1.8 See_Comment [Automate d message] The code = CK MB Index) system w [facility] generated this result transmit rohit reference range : <=2.5. The reference range was not used to interpr et this result as reji l/abnormal. [facility] [employer] My TagsAC [id number] 02:08:00 Test Item Value Reference Range Interpretation Comments CK MB (test code = CK MB) 2.9 0.5-3.6 [facility] BossmanDGSE [id number] 02:08:00 Test Item Value Reference Range Interpretation Comments Troponin-T (test code 0.061 See_Comment [Auto mated message] The = Troponin-T) system which g enerated this result transmit rohit reference range : <=0.100. The reference r leo was not used to interpr et this result as reji l/abnormal. [facility] [employer] [id number] 02:08:00 Test Item Value Reference Range Interpretation Comments Total CK (test code = Total CK) 159 12-191 [facility] [employer] [id number] 02:08:00 Test Item Value Reference Range Interpretation Comments Troponin-I (test code no gt See_Comment [Auto mated message] The = Troponin-I) system which g enerated this result transmit rohit reference range : <=0.40. The reference r leo was not used to interpr et this result as reji l/abnormal. [facility] [employer] [id number] 02:08:00 Test Item Value Reference Range Interpretation Comments Bili Total (test code = Bili Total) 0.2 0.2-1.3 [facility] [employer] [id number] 02:08:00 Test Item Value Reference Range Interpretation Comments Bili Direct (test code 0.1 See_Comment [Aut omated message] The = Bili Direct) system which generated this result tra nsmitted reference range : <=0.3. The reference r leo was not used to int erpret this result as reji l/abnormal. [facility] [employer] [id number] 02:08:00 Test Item Value Reference Range Interpretation Comments Bili Indirect (test 0.1 See_Comment [Automa rohit message] The code = Bili Indirect) system which generated this result tra nsmitted reference range : <=1.0. The reference r leo was not used to int erpret this result as normal/abnormal . [facility] [employer] [id number] 02:08:00 Test Item Value Reference Range Interpretation Comments Total Protein (test code = Total 5.7 6.4-8.4 Protein) [facility] [employer] [id number] 02:08:00 Test Item Value Reference Range Interpretation Comments A/G Ratio (test code = A/G Ratio) 0.5 0.7-1.6 [facility] [employer] [id number] 02:08:00 Test Item Value Reference Range Interpretation Comments Albumin Lvl (test code = Albumin Lvl) 1.8 3.5-5.0 [facility] [employer] [id number] 02:08:00 Test Item Value Reference Range Interpretation Comments Globulin (test code = Globulin) 3.9 2.7-4.2 [facility] [employer] [id number] 02:08:00 Test Item Value Reference Range Interpretation Comments Alk Phos (test code = Alk Phos) 99 39-136 [facility] [employer] [id number] 02:08:00 Test Item Value Reference Range Interpretation Comments AST (test code = AST) 21 See_Comment [Auto mated message] The system which ge nerated this result transmit rohit reference range : <=37. The reference range was not used to interpr et this result as reji l/abnormal. [facility] [employer] [id number] 02:08:00 Test Item Value Reference Range Interpretation Comments ALT (test code = ALT) 17 See_Comment [Auto mated message] The system which ge nerated this result transmit rohit reference range : <=65. The reference range was not used to interpr et this result as reji l/abnormal. [facility] [employer] [id number] 02:08:00 Test Item Value Reference Range Interpretation Comments UDS Note (test code = See Note *NA*(06/10/16 UDS Note) 8:08 PM) [facility] [id number] 02:08:00 Test Item Value Reference Range Interpretation Comments U Propoxyph Scr (test Negative *NA*(06/10/16 code = U Propoxyph Scr) 8:08 PM) [facility] [id number] 02:08:00 Test Item Value Reference Range Interpretation Comments U Opiate Scr (test Negative *NA*(06/10/16 code = U Opiate Scr) 8:08 PM) [facility] [id number] 02:08:00 Test Item Value Reference Range Interpretation Comments U Methadone Scr (test Negative *NA*(06/10/16 code = U Methadone Scr) 8:08 PM) [facility] [id number] 02:08:00 Test Item Value Reference Range Interpretation Comments U Phencyc Scr (test Negative *NA*(06/10/16 code = U Phencyc Scr) 8:08 PM) [facility] [id number] 02:08:00 Test Item Value Reference Range Interpretation Comments U Cannab Scr (test Negative *NA*(06/10/16 code = U Cannab Scr) 8:08 PM) [facility] [id number] 02:08:00 Test Item Value Reference Range Interpretation Comments U Amph Scr (test code Negative *NA*(06/10/16 = U Amph Scr) 8:08 PM) [facility] [id number] 02:08:00 Test Item Value Reference Range Interpretation Comments U Kelly Scr (test code Negative *NA*(06/10/16 = U Kelly Scr) 8:08 PM) [facility] [id number] 02:08:00 Test Item Value Reference Range Interpretation Comments U Benzodia Scr (test Negative *NA*(06/10/16 code = U Benzodia Scr) 8:08 PM) [facility] [id number] 02:08:00 Test Item Value Reference Range Interpretation Comments U Cocaine Scr (test Negative *NA*(06/10/16 code = U Cocaine Scr) 8:08 PM) [facility] [id number] 02:08:00 Test Item Value Reference Range Interpretation Comments LDL (Calculated) (test code = LDL 75 (Calculated)) [facility] [id number] 02:08:00 Test Item Value Reference Range Interpretation Comments VLDL (test code = VLDL) 27 [id number] 02:08:00 Test Item Value Reference Range Interpretation Comments Chol (test code = Chol) 133 [facility] [id number] 02:08:00 Test Item Value Reference Range Interpretation Comments Trig (test code = Trig) 133 [facility] [id number] 02:08:00 Test Item Value Reference Range Interpretation Comments CHD Risk (test code = CHD Risk) 4.29 3.90-5.80 [facility] [id number] 02:08:00 Test Item Value Reference Range Interpretation Comments HDL (test code = HDL) 31 [facility] AND [id number] 02:08:00 Test Item Value Reference Range Interpretation Comments UA Urobilinogen (test code = UA <=1.0 mg/dL 0.1-1.0 Urobilinogen) [facility] AND [id number] 02:08:00 Test Item Value Reference Range Interpretation Comments UA Ketones (test code = UA Negative mg/dL Ketones) [facility] AND [id number] 02:08:00 Test Item Value Reference Range Interpretation Comments UA Glucose (test code = UA Glucose) 300 mg/dL [facility] AND [id number] 02:08:00 Test Item Value Reference Range Interpretation Comments UA Protein (test code = UA >=300 mg/dL Protein) [facility] AND [id number] 02:08:00 Test Item Value Reference Range Interpretation Comments UA pH (test code = UA pH) 6.0 5.0-8.0 [facility] AND [id number] 02:08:00 Test Item Value Reference Range Interpretation Comments UA Nitrite (test code Negative (06/10/16 8:08 = UA Nitrite) PM) [facility] AND [id number] 02:08:00 Test Item Value Reference Range Interpretation Comments UA Blood (test code = Trace *ABN*(06/10/16 UA Blood) 8:08 PM) [facility] AND [id number] 02:08:00 Test Item Value Reference Range Interpretation Comments UA Bili (test code = Negative *NA*(06/10/16 UA Bili) 8:08 PM) [facility] BossmanannURINE AND [id number] 02:08:00 Test Item Value Reference Range Interpretation Comments UA Mucus (test code = UA Mucus) Few /LPF [facility] [id number] 02:08:00 Test Item Value Reference Range Interpretation Comments UA RBC (test code = 4 See_Comment [Automa rohit message] The UA RBC) system which ge nerated this result transmit rohit reference range : <=2. The reference range was not used to interpr et this result as reji l/abnormal. [facility] AND [id number] 02:08:00 Test Item Value Reference Range Interpretation Comments UA Sq Epi (test code = UA Sq Epi) Few /LPF [facility] [id number] 02:08:00 Test Item Value Reference Range Interpretation Comments UA WBC (test code = 5 See_Comment [Automa rohit message] The UA WBC) system which ge nerated this result transmit rohit reference range : <=5. The reference range was not used to interpr et this result as reji l/abnormal. [facility] Katelyn AND [id number] 02:08:00 Test Item Value Reference Range Interpretation Comments UA Leuk Est (test code Small *ABN*(06/10/16 = UA Leuk Est) 8:08 PM) [facility] [id number] 02:08:00 Test Item Value Reference Range Interpretation Comments UA Hyal Cast (test 1 See_Comment [Automat ed message] The code = UA Hyal Cast) system which generated this result transmit rohit reference range : <=2. The reference range was not used to interpr et this result as reji l/abnormal. [facility] AND [id number] 02:08:00 Test Item Value Reference Range Interpretation Comments UA Spec Grav (test code = UA Spec Grav) 1.009 [facility] AND [id number] 02:08:00 Test Item Value Reference Range Interpretation Comments UA Color (test code = Yellow *NA*(06/10/16 UA Color) 8:08 PM) [facility] AND [id number] 02:08:00 Test Item Value Reference Range Interpretation Comments UA Turbidity (test code = Clear (06/10/16 8:08 UA Turbidity) PM) [facility] [id number] 02:08:00 Test Item Value Reference Range Interpretation Comments U Preg (test code = U Negative (06/10/16 8:08 Preg) PM) [facility] [id number] 02:08:00 Test Item Value Reference Range Interpretation Comments U Protein (test code = U Protein) 375.4 [facility] [id number] 02:08:00 Test Item Value Reference Range Interpretation Comments U Prot/Creat (test code = U Prot/Creat) 5.4 [facility] [id number] 02:08:00 Test Item Value Reference Range Interpretation Comments U Creatinine (test code = U Creatinine) 69.80 [facility] VinCARFocal Point PharmaceuticalsAC [id number] 02:08:00 Test Item Value Reference Range Interpretation Comments CK MB Index (test 1.8 See_Comment [Automate d message] The code = CK MB Index) system w [facility] generated this result transmit rohit reference range : <=2.5. The reference range was not used to interpr et this result as reji l/abnormal. [facility] [employer]CARAth[employer] [id number] 02:08:00 Test Item Value Reference Range Interpretation Comments CK MB (test code = CK MB) 2.9 0.5-3.6 [facility] [employer]CARAthletePath [id number] 02:08:00 Test Item Value Reference Range Interpretation Comments Troponin-T (test code 0.061 See_Comment [Auto mated message] The = Troponin-T) system which g enerated this result transmit rohit reference range : <=0.100. The reference r leo was not used to interpr et this result as reji l/abnormal. [facility] VinCARFocal Point PharmaceuticalsAC [id number] 02:08:00 Test Item Value Reference Range Interpretation Comments Total CK (test code = Total CK) 159 12-191 [facility] AsteriskannCARAthletePath [id number] 02:08:00 Test Item Value Reference Range Interpretation Comments Troponin-I (test code no gt See_Comment [Auto mated message] The = Troponin-I) system which g enerated this result transmit rohit reference range : <=0.40. The reference r leo was not used to interpr et this result as reji l/abnormal. [facility]2016-12-22 02:08:00 Test Item Value Reference Range Interpretation Comments Bili Total (test code = Bili Total) 0.2 0.2-1.3 [facility]2016-12-22 02:08:00 Test Item Value Reference Range Interpretation Comments Bili Direct (test code 0.1 See_Comment [Aut omated message] The = Bili Direct) system which generated this result tra nsmitted reference range : <=0.3. The reference r leo was not used to int erpret this result as reji l/abnormal. [facility]2016-12-22 02:08:00 Test Item Value Reference Range Interpretation Comments Bili Indirect (test 0.1 See_Comment [Automa rohit message] The code = Bili Indirect) system which generated this result tra nsmitted reference range : <=1.0. The reference r leo was not used to int erpret this result as normal/abnormal . [facility]2016-12-22 02:08:00 Test Item Value Reference Range Interpretation Comments Total Protein (test code = Total 5.7 6.4-8.4 Protein) [facility]2016-12-22 02:08:00 Test Item Value Reference Range Interpretation Comments A/G Ratio (test code = A/G Ratio) 0.5 0.7-1.6 [facility]2016-12-22 02:08:00 Test Item Value Reference Range Interpretation Comments Albumin Lvl (test code = Albumin Lvl) 1.8 3.5-5.0 [facility]2016-12-22 02:08:00 Test Item Value Reference Range Interpretation Comments Globulin (test code = Globulin) 3.9 2.7-4.2 [place] [id number] 02:08:00 Test Item Value Reference Range Interpretation Comments Alk Phos (test code = Alk Phos) 99 39-136 [facility]2016-12-22 02:08:00 Test Item Value Reference Range Interpretation Comments AST (test code = AST) 21 See_Comment [Auto mated message] The system which ge nerated this result transmit rohit reference range : <=37. The reference range was not used to interpr et this result as reji l/abnormal. [facility] [id number] 02:08:00 Test Item Value Reference Range Interpretation Comments ALT (test code = ALT) 17 See_Comment [Auto mated message] The system which ge nerated this result transmit rohit reference range : <=65. The reference range was not used to interpr et this result as reji l/abnormal. [facility] [id number] 02:08:00 Test Item Value Reference Range Interpretation Comments UDS Note (test code = See Note *NA*(06/10/16 UDS Note) 8:08 PM) [facility] [id number] 02:08:00 Test Item Value Reference Range Interpretation Comments U Propoxyph Scr (test Negative *NA*(06/10/16 code = U Propoxyph Scr) 8:08 PM) [facility] [id number] 02:08:00 Test Item Value Reference Range Interpretation Comments U Opiate Scr (test Negative *NA*(06/10/16 code = U Opiate Scr) 8:08 PM) [facility] [id number] 02:08:00 Test Item Value Reference Range Interpretation Comments U Methadone Scr (test Negative *NA*(06/10/16 code = U Methadone Scr) 8:08 PM) [facility] [id number] 02:08:00 Test Item Value Reference Range Interpretation Comments U Phencyc Scr (test Negative *NA*(06/10/16 code = U Phencyc Scr) 8:08 PM) [facility] [id number] 02:08:00 Test Item Value Reference Range Interpretation Comments U Cannab Scr (test Negative *NA*(06/10/16 code = U Cannab Scr) 8:08 PM) [facility] [id number] 02:08:00 Test Item Value Reference Range Interpretation Comments U Amph Scr (test code Negative *NA*(06/10/16 = U Amph Scr) 8:08 PM) [facility] [id number] 02:08:00 Test Item Value Reference Range Interpretation Comments U Kelly Scr (test code Negative *NA*(06/10/16 = U Kelly Scr) 8:08 PM) [facility] [id number] 02:08:00 Test Item Value Reference Range Interpretation Comments U Benzodia Scr (test Negative *NA*(06/10/16 code = U Benzodia Scr) 8:08 PM) [facility] [id number] 02:08:00 Test Item Value Reference Range Interpretation Comments U Cocaine Scr (test Negative *NA*(06/10/16 code = U Cocaine Scr) 8:08 PM) [facility] [id number] 02:08:00 Test Item Value Reference Range Interpretation Comments LDL (Calculated) (test code = LDL 75 (Calculated)) [facility] [id number] 02:08:00 Test Item Value Reference Range Interpretation Comments VLDL (test code = VLDL) 27 [facility] [id number] 02:08:00 Test Item Value Reference Range Interpretation Comments Chol (test code = Chol) 133 [facility] [id number] 02:08:00 Test Item Value Reference Range Interpretation Comments Trig (test code = Trig) 133 [facility] [id number] 02:08:00 Test Item Value Reference Range Interpretation Comments CHD Risk (test code = CHD Risk) 4.29 3.90-5.80 [id number] 02:08:00 Test Item Value Reference Range Interpretation Comments HDL (test code = HDL) 31 [facility] AND [id number] 02:08:00 Test Item Value Reference Range Interpretation Comments UA Urobilinogen (test code = UA <=1.0 mg/dL 0.1-1.0 Urobilinogen) [facility] [id number] 02:08:00 Test Item Value Reference Range Interpretation Comments UA Ketones (test code = UA Negative mg/dL Ketones) [facility] [id number] 02:08:00 Test Item Value Reference Range Interpretation Comments UA Glucose (test code = UA Glucose) 300 mg/dL [facility]ann[facility] [id number] 02:08:00 Test Item Value Reference Range Interpretation Comments UA Protein (test code = UA >=300 mg/dL Protein) [facility] [id number] 02:08:00 Test Item Value Reference Range Interpretation Comments UA pH (test code = UA pH) 6.0 5.0-8.0 [facility] AND [id number] 02:08:00 Test Item Value Reference Range Interpretation Comments UA Nitrite (test code Negative (06/10/16 8:08 = UA Nitrite) PM) [facility] AND [id number] 02:08:00 Test Item Value Reference Range Interpretation Comments UA Blood (test code = Trace *ABN*(06/10/16 UA Blood) 8:08 PM) [facility] AND [id number] 02:08:00 Test Item Value Reference Range Interpretation Comments UA Bili (test code = Negative *NA*(06/10/16 UA Bili) 8:08 PM) [facility] AND [id number] 02:08:00 Test Item Value Reference Range Interpretation Comments UA Mucus (test code = UA Mucus) Few /LPF [facility] AND [id number] 02:08:00 Test Item Value Reference Range Interpretation Comments UA RBC (test code = 4 See_Comment [Automa rohit message] The UA RBC) system which ge nerated this result transmit rohit reference range : <=2. The reference range was not used to interpr et this result as reji l/abnormal. [facility] AND [id number] 02:08:00 Test Item Value Reference Range Interpretation Comments UA Sq Epi (test code = UA Sq Epi) Few /LPF [facility] AND [id number] 02:08:00 Test Item Value Reference Range Interpretation Comments UA WBC (test code = 5 See_Comment [Automa rohit message] The UA WBC) system which ge nerated this result transmit rohit reference range : <=5. The reference range was not used to interpr et this result as reji l/abnormal. [facility] AND [id number] 02:08:00 Test Item Value Reference Range Interpretation Comments UA Leuk Est (test code Small *ABN*(06/10/16 = UA Leuk Est) 8:08 PM) [facility] AND [id number] 02:08:00 Test Item Value Reference Range Interpretation Comments UA Hyal Cast (test 1 See_Comment [Automat ed message] The code = UA Hyal Cast) system which generated this result transmit rohit reference range : <=2. The reference range was not used to interpr et this result as reji l/abnormal. [facility] AND [id number] 02:08:00 Test Item Value Reference Range Interpretation Comments UA Spec Grav (test code = UA Spec Grav) 1.009 [facility] AND [id number] 02:08:00 Test Item Value Reference Range Interpretation Comments UA Color (test code = Yellow *NA*(06/10/16 UA Color) 8:08 PM) [facility] AND [id number] 02:08:00 Test Item Value Reference Range Interpretation Comments UA Turbidity (test code = Clear (06/10/16 8:08 UA Turbidity) PM) [facility] [id number] 02:08:00 Test Item Value Reference Range Interpretation Comments U Preg (test code = U Negative (06/10/16 8:08 Preg) PM) [facility] [id number] 02:08:00 Test Item Value Reference Range Interpretation Comments U Protein (test code = U Protein) 375.4 [facility] [id number] 02:08:00 Test Item Value Reference Range Interpretation Comments U Prot/Creat (test code = U Prot/Creat) 5.4 [facility] [id number] 02:08:00 Test Item Value Reference Range Interpretation Comments U Creatinine (test code = U Creatinine) 69.80 [facility]icsannCARDIAC [id number] 02:08:00 Test Item Value Reference Range Interpretation Comments CK MB Index (test 1.8 See_Comment [Automate d message] The code = CK MB Index) system w [facility] generated this result transmit rohit reference range : <=2.5. The reference range was not used to interpr et this result as reji l/abnormal. [facility] BossmanannCARDIAC [id number] 02:08:00 Test Item Value Reference Range Interpretation Comments CK MB (test code = CK MB) 2.9 0.5-3.6 [facility] [id number] 02:08:00 Test Item Value Reference Range Interpretation Comments Troponin-T (test code 0.061 See_Comment [Auto mated message] The = Troponin-T) system which g enerated this result transmit rohit reference range : <=0.100. The reference r elo was not used to interpr et this result as reji l/abnormal. [facility] [id number] 02:08:00 Test Item Value Reference Range Interpretation Comments Total CK (test code = Total CK) 159 12-191 [facility] [id number] 02:08:00 Test Item Value Reference Range Interpretation Comments Troponin-I (test code no gt See_Comment [Auto mated message] The = Troponin-I) system which g enerated this result transmit rohit reference range : <=0.40. The reference r leo was not used to interpr et this result as reji l/abnormal. [facility] [employer] [id number] 02:08:00 Test Item Value Reference Range Interpretation Comments Bili Total (test code = Bili Total) 0.2 0.2-1.3 [facility] ClinicsT[facility] Assignment [id number] 02:08:00 Test Item Value Reference Range Interpretation Comments Bili Direct (test code 0.1 See_Comment [Aut omated message] The = Bili Direct) system which generated this result tra nsmitted reference range : <=0.3. The reference r leo was not used to int erpret this result as reji l/abnormal. [facility] [employer] [id number] 02:08:00 Test Item Value Reference Range Interpretation Comments Bili Indirect (test 0.1 See_Comment [Automa rohit message] The code = Bili Indirect) system which generated this result tra nsmitted reference range : <=1.0. The reference r leo was not used to int erpret this result as normal/abnormal . [facility] [employer] [id number] 02:08:00 Test Item Value Reference Range Interpretation Comments Total Protein (test code = Total 5.7 6.4-8.4 Protein) [facility] [id number] 02:08:00 Test Item Value Reference Range Interpretation Comments A/G Ratio (test code = A/G Ratio) 0.5 0.7-1.6 [facility] [id number] 02:08:00 Test Item Value Reference Range Interpretation Comments Albumin Lvl (test code = Albumin Lvl) 1.8 3.5-5.0 [facility] [employer] [id number] 02:08:00 Test Item Value Reference Range Interpretation Comments Globulin (test code = Globulin) 3.9 2.7-4.2 [facility] [employer] [id number] 02:08:00 Test Item Value Reference Range Interpretation Comments Alk Phos (test code = Alk Phos) 99 39-136 [facility] [employer] [id number] 02:08:00 Test Item Value Reference Range Interpretation Comments AST (test code = AST) 21 See_Comment [Auto mated message] The system which ge nerated this result transmit rohit reference range : <=37. The reference range was not used to interpr et this result as reji l/abnormal. [facility] [employer] [id number] 02:08:00 Test Item Value Reference Range Interpretation Comments ALT (test code = ALT) 17 See_Comment [Auto mated message] The system which ge nerated this result transmit rohit reference range : <=65. The reference range was not used to interpr et this result as reji l/abnormal. [facility] [employer] [id number] 02:08:00 Test Item Value Reference Range Interpretation Comments UDS Note (test code = See Note *NA*(06/10/16 UDS Note) 8:08 PM) [facility] [employer] [id number] 02:08:00 Test Item Value Reference Range Interpretation Comments U Propoxyph Scr (test Negative *NA*(06/10/16 code = U Propoxyph Scr) 8:08 PM) [facility] [employer] [id number] 02:08:00 Test Item Value Reference Range Interpretation Comments U Opiate Scr (test Negative *NA*(06/10/16 code = U Opiate Scr) 8:08 PM) [facility] [employer] [id number] 02:08:00 Test Item Value Reference Range Interpretation Comments U Methadone Scr (test Negative *NA*(06/10/16 code = U Methadone Scr) 8:08 PM) [facility] [employer] [id number] 02:08:00 Test Item Value Reference Range Interpretation Comments U Phencyc Scr (test Negative *NA*(06/10/16 code = U Phencyc Scr) 8:08 PM) [facility] [employer] [id number] 02:08:00 Test Item Value Reference Range Interpretation Comments U Cannab Scr (test Negative *NA*(06/10/16 code = U Cannab Scr) 8:08 PM) [facility] [id number] 02:08:00 Test Item Value Reference Range Interpretation Comments U Amph Scr (test code Negative *NA*(06/10/16 = U Amph Scr) 8:08 PM) [facility] [id number] 02:08:00 Test Item Value Reference Range Interpretation Comments U Kelly Scr (test code Negative *NA*(06/10/16 = U Kelly Scr) 8:08 PM) [facility] [id number] 02:08:00 Test Item Value Reference Range Interpretation Comments U Benzodia Scr (test Negative *NA*(06/10/16 code = U Benzodia Scr) 8:08 PM) [facility] [id number] 02:08:00 Test Item Value Reference Range Interpretation Comments U Cocaine Scr (test Negative *NA*(06/10/16 code = U Cocaine Scr) 8:08 PM) [facility] [id number] 02:08:00 Test Item Value Reference Range Interpretation Comments LDL (Calculated) (test code = LDL 75 (Calculated)) [facility] [id number] 02:08:00 Test Item Value Reference Range Interpretation Comments VLDL (test code = VLDL) 27 [id number] 02:08:00 Test Item Value Reference Range Interpretation Comments Chol (test code = Chol) 133 [facility]icsGvegxowHKVZTE8457-83-45 02:08:00 Test Item Value Reference Range Interpretation Comments Trig (test code = Trig) 133 [facility] [id number] 02:08:00 Test Item Value Reference Range Interpretation Comments CHD Risk (test code = CHD Risk) 4.29 3.90-5.80 [facility] [id number] 02:08:00 Test Item Value Reference Range Interpretation Comments HDL (test code = HDL) 31 [facility] AND [id number] 02:08:00 Test Item Value Reference Range Interpretation Comments UA Urobilinogen (test code = UA <=1.0 mg/dL 0.1-1.0 Urobilinogen) [facility] AND [id number] 02:08:00 Test Item Value Reference Range Interpretation Comments UA Ketones (test code = UA Negative mg/dL Ketones) [facility] AND [id number] 02:08:00 Test Item Value Reference Range Interpretation Comments UA Glucose (test code = UA Glucose) 300 mg/dL [facility] AND [id number] 02:08:00 Test Item Value Reference Range Interpretation Comments UA Protein (test code = UA >=300 mg/dL Protein) [facility] AND [id number] 02:08:00 Test Item Value Reference Range Interpretation Comments UA pH (test code = UA pH) 6.0 5.0-8.0 [facility] AND [id number] 02:08:00 Test Item Value Reference Range Interpretation Comments UA Nitrite (test code Negative (06/10/16 8:08 = UA Nitrite) PM) [facility] AND [id number] 02:08:00 Test Item Value Reference Range Interpretation Comments UA Blood (test code = Trace *ABN*(06/10/16 UA Blood) 8:08 PM) [facility] AND [id number] 02:08:00 Test Item Value Reference Range Interpretation Comments UA Bili (test code = Negative *NA*(06/10/16 UA Bili) 8:08 PM) [facility] AND [id number] 02:08:00 Test Item Value Reference Range Interpretation Comments UA Mucus (test code = UA Mucus) Few /LPF [facility] AND [id number] 02:08:00 Test Item Value Reference Range Interpretation Comments UA RBC (test code = 4 See_Comment [Automa rohit message] The UA RBC) system which ge nerated this result transmit rohit reference range : <=2. The reference range was not used to interpr et this result as reji l/abnormal. [facility] AND [id number] 02:08:00 Test Item Value Reference Range Interpretation Comments UA Sq Epi (test code = UA Sq Epi) Few /LPF [facility] AND [id number] 02:08:00 Test Item Value Reference Range Interpretation Comments UA WBC (test code = 5 See_Comment [Automa rohit message] The UA WBC) system which ge nerated this result transmit rohit reference range : <=5. The reference range was not used to interpr et this result as reji l/abnormal. [facility] [id number] 02:08:00 Test Item Value Reference Range Interpretation Comments UA Leuk Est (test code Small *ABN*(06/10/16 = UA Leuk Est) 8:08 PM) [facility] [id number] 02:08:00 Test Item Value Reference Range Interpretation Comments UA Hyal Cast (test 1 See_Comment [Automat ed message] The code = UA Hyal Cast) system which generated this result transmit rohit reference range : <=2. The reference range was not used to interpr et this result as reji l/abnormal. [facility] [employer] AND [id number] 02:08:00 Test Item Value Reference Range Interpretation Comments UA Spec Grav (test code = UA Spec Grav) 1.009 [facility] [id number] 02:08:00 Test Item Value Reference Range Interpretation Comments UA Color (test code = Yellow *NA*(06/10/16 UA Color) 8:08 PM) [facility] [id number] 02:08:00 Test Item Value Reference Range Interpretation Comments UA Turbidity (test code = Clear (06/10/16 8:08 UA Turbidity) PM) [facility]2016-12-22 02:08:00 Test Item Value Reference Range Interpretation Comments U Preg (test code = U Negative (06/10/16 8:08 Preg) PM) [facility] [id number] 02:08:00 Test Item Value Reference Range Interpretation Comments U Protein (test code = U Protein) 375.4 [facility] [id number] 02:08:00 Test Item Value Reference Range Interpretation Comments U Prot/Creat (test code = U Prot/Creat) 5.4 [facility] [id number] 02:08:00 Test Item Value Reference Range Interpretation Comments U Creatinine (test code = U Creatinine) 69.80 [facility]icsannCARDIAC [id number] 16:53:00 Test Item Value Reference Range Interpretation Comments BNP (test code = BNP) 1135 [facility]icsannCARDIAC [id number] 16:53:00 Test Item Value Reference Range Interpretation Comments Troponin-I (test code no gt See_Comment [Auto mated message] The = Troponin-I) system which g enerated this result transmit rohit reference range : <=0.40. The reference r leo was not used to interpr et this result as reji l/abnormal. [employer]2016-12-21 16:53:00 Test Item Value Reference Range Interpretation Comments BNP (test code = BNP) 1135 [facility] [employer]2016-12-21 16:53:00 Test Item Value Reference Range Interpretation Comments Troponin-I (test code no gt See_Comment [Auto mated message] The = Troponin-I) system which g enerated this result transmit rohit reference range : <=0.40. The reference r leo was not used to interpr et this result as reji l/abnormal. [facility] [employer]2016-12-21 16:53:00 Test Item Value Reference Range Interpretation Comments BNP (test code = BNP) 1135 [facility] [employer]2016-12-21 16:53:00 Test Item Value Reference Range Interpretation Comments Troponin-I (test code no gt See_Comment [Auto mated message] The = Troponin-I) system which g enerated this result transmit rohit reference range : <=0.40. The reference r leo was not used to interpr et this result as reji l/abnormal. [facility] [employer]2016-12-21 16:53:00 Test Item Value Reference Range Interpretation Comments BNP (test code = BNP) 1135 [facility] [employer]2016-12-21 16:53:00 Test Item Value Reference Range Interpretation Comments Troponin-I (test code no gt See_Comment [Auto mated message] The = Troponin-I) system which g enerated this result transmit rohit reference range : <=0.40. The reference r leo was not used to interpr et this result as reji l/abnormal. [facility] [employer]2016-12-21 16:53:00 Test Item Value Reference Range Interpretation Comments BNP (test code = BNP) 1135 [facility] [employer]2016-12-21 16:53:00 Test Item Value Reference Range Interpretation Comments Troponin-I (test code no gt See_Comment [Auto mated message] The = Troponin-I) system which g enerated this result transmit rohit reference range : <=0.40. The reference r leo was not used to interpr et this result as reji l/abnormal. [facility]2015-01-06 13:02:00 Test Item Value Reference Range Interpretation Comments Lactic Acid WB (test code = Lactic Acid 0.9 0.5-2.2 WB) [facility]2015-01-06 13:02:00 Test Item Value Reference Range Interpretation Comments Lactic Acid WB (test code = Lactic Acid 0.9 0.5-2.2 WB) [facility]2015-01-06 13:02:00 Test Item Value Reference Range Interpretation Comments Lactic Acid WB (test code = Lactic Acid 0.9 0.5-2.2 WB) [facility]2015-01-06 13:02:00 Test Item Value Reference Range Interpretation Comments Lactic Acid WB (test code = Lactic Acid 0.9 0.5-2.2 WB) [facility]2015-01-06 13:02:00 Test Item Value Reference Range Interpretation Comments Lactic Acid WB (test code = Lactic Acid 0.9 0.5-2.2 WB) [place] [id number] 12:29:44 Test Item Value Reference Range Interpretation Comments Valproic Acid Lvl (test code = Valproic 10 50-100 Acid Lvl) [place] [id number] 12:29:44 Test Item Value Reference Range Interpretation Comments Valproic Acid Lvl (test code = Valproic 10 50-100 Acid Lvl) [place] [id number] 12:29:44 Test Item Value Reference Range Interpretation Comments Valproic Acid Lvl (test code = Valproic 10 50-100 Acid Lvl) [place] [id number] 12:29:44 Test Item Value Reference Range Interpretation Comments Valproic Acid Lvl (test code = Valproic 10 50-100 Acid Lvl) [place] [id number] 12:29:44 Test Item Value Reference Range Interpretation Comments Valproic Acid Lvl (test code = Valproic 10 50-100 Acid Lvl) [id number] 11:21:27 Test Item Value Reference Range Interpretation Comments hCG Tot (test code = hCG Tot) 1 [place] [id number] 11:21:27 Test Item Value Reference Range Interpretation Comments hCG Tot (test code = hCG Tot) 1 [place] [id number] 11:21:27 Test Item Value Reference Range Interpretation Comments hCG Tot (test code = hCG Tot) 1 [place] [id number] 11:21:27 Test Item Value Reference Range Interpretation Comments hCG Tot (test code = hCG Tot) 1 [place] [id number] 11:21:27 Test Item Value Reference Range Interpretation Comments hCG Tot (test code = hCG Tot) 1 [facility]2015-01-06 11:21:00 Test Item Value Reference Range Interpretation Comments Albumin Lvl (test code = Albumin Lvl) 3.2 3.5-5.0 [facility]2015-01-06 11:21:00 Test Item Value Reference Range Interpretation Comments Total Protein (test code = Total 6.6 6.4-8.4 Protein) [facility]2015-01-06 11:21:00 Test Item Value Reference Range Interpretation Comments Bili Total (test code = Bili Total) 0.6 0.2-1.3 [facility]2015-01-06 11:21:00 Test Item Value Reference Range Interpretation Comments Alk Phos (test code = Alk Phos) 59 39-136 [facility]2015-01-06 11:21:00 Test Item Value Reference Range Interpretation Comments AST (test code = AST) 11 See_Comment [Auto mated message] The system which ge nerated this result transmit rohit reference range : <=37. The reference range was not used to interpr et this result as reji l/abnormal. [facility]2015-01-06 11:21:00 Test Item Value Reference Range Interpretation Comments ALT (test code = ALT) 17 See_Comment [Auto mated message] The system which ge nerated this result transmit rohit reference range : <=65. The reference range was not used to interpr et this result as reji l/abnormal. [facility]2015-01-06 11:21:00 Test Item Value Reference Range Interpretation Comments eGFR (test code = eGFR) 99 [facility]2015-01-06 11:21:00 Test Item Value Reference Range Interpretation Comments Glucose Lvl (test code = Glucose Lvl) 314 70-99 [facility]2015-01-06 11:21:00 Test Item Value Reference Range Interpretation Comments Potassium Lvl (test code = Potassium 3.4 3.5-5.1 Lvl) [facility]2015-01-06 11:21:00 Test Item Value Reference Range Interpretation Comments BUN (test code = BUN) 11 7-22 [facility]2015-01-06 11:21:00 Test Item Value Reference Range Interpretation Comments Creatinine Lvl (test code = Creatinine 0.8 0.5-1.4 Lvl) [facility]2015-01-06 11:21:00 Test Item Value Reference Range Interpretation Comments Sodium Lvl (test code = Sodium Lvl) 134 135-145 [facility]2015-01-06 11:21:00 Test Item Value Reference Range Interpretation Comments Chloride Lvl (test code = Chloride Lvl) 94 95-109 [facility]2015-01-06 11:21:00 Test Item Value Reference Range Interpretation Comments Calcium Lvl (test code = Calcium Lvl) 9.1 8.5-10.5 [facility]2015-01-06 11:21:00 Test Item Value Reference Range Interpretation Comments CO2 (test code = CO2) 24 24-32 [facility]2015-01-06 11:21:00 Test Item Value Reference Range Interpretation Comments A/G Ratio (test code = A/G Ratio) 0.9 0.7-1.6 [facility]2015-01-06 11:21:00 Test Item Value Reference Range Interpretation Comments Globulin (test code = Globulin) 3.4 2.0-4.0 [facility]2015-01-06 11:21:00 Test Item Value Reference Range Interpretation Comments B/C Ratio (test code = B/C Ratio) 14 6-25 [facility]2015-01-06 11:21:00 Test Item Value Reference Range Interpretation Comments AGAP (test code = AGAP) 19.4 10.0-20.0 [place] 159635-01-06 11:21:00 Test Item Value Reference Range Interpretation Comments Lipase Lvl (test code = Lipase Lvl) 81 73-393 [id number] 11:21:00 Test Item Value Reference Range Interpretation Comments Large Plt (test code = Large Plt) Slight [facility]anoOdtmjqiYJULIMVBSD6425-66-54 11:21:00 Test Item Value Reference Range Interpretation Comments Basophils # (test code 0.0 See_Comment [Aut omated message] The = Basophils #) system which generated this result tra nsmitted reference range : <=0.2. The reference r leo was not used to int erpret this result as normal/abnormal . [facility]anoPrabcgcDSTOXSGDDV1550-89-98 11:21:00 Test Item Value Reference Range Interpretation Comments Anisocyte (test code = 1+ *ABN*(06/26/14 5:21 Anisocyte) AM) [facility]anoCniezsfXBGLWQXIJX0625-51-47 11:21:00 Test Item Value Reference Range Interpretation Comments Monocytes # (test code 0.6 See_Comment [Aut omated message] The = Monocytes #) system which generated this result tra nsmitted reference range : <=0.8. The reference r leo was not used to int erpret this result as normal/abnormal . [facility]anoZhwvpnoNIXASKDGPE2818-44-69 11:21:00 Test Item Value Reference Range Interpretation Comments Eosinophils # (test code 0.1 See_Comment [A utomated message] The = Eosinophils #) system whic h generated this result tra nsmitted reference range : <=0.5. The reference r leo was not used to int erpret this result as normal/abnormal . [facility]a[id number] 11:21:00 Test Item Value Reference Range Interpretation Comments Lymphocytes # (test code = Lymphocytes 2.5 1.0-5.5 #) [facility]anoTksxdxpHINUGDMQFR5251-94-59 11:21:00 Test Item Value Reference Range Interpretation Comments Segs (test code = Segs) 63.3 45.0-75.0 [facility]anoQvstsabJWXBEYQUFM2313-37-58 11:21:00 Test Item Value Reference Range Interpretation Comments Segs-Bands # (test code = Segs-Bands #) 5.6 1.5-8.1 [facility]anoVkfgtpiJDZTXNETZI9688-53-94 11:21:00 Test Item Value Reference Range Interpretation Comments Basophils (test code = 0.0 See_Comment [Aut omated message] The Basophils) system which ge nerated this result tra nsmitted reference range : <=1.0. The reference r leo was not used to int erpret this result as normal/abnormal . [facility]anoLzfxvhjUIOXBOATFW8424-10-44 11:21:00 Test Item Value Reference Range Interpretation Comments Eosinophils (test code = 0.9 See_Comment [A utomated message] The Eosinophils) system which ge nerated this result tra nsmitted reference range : <=4.0. The reference r leo was not used to int erpret this result as normal/abnormal . [facility]anoAlyhfccHMRCCBFAPQ7816-23-94 11:21:00 Test Item Value Reference Range Interpretation Comments Monocytes (test code = Monocytes) 7.0 2.0-12.0 [facility]anoCfkqcuiHETSRKDIYM1842-28-78 11:21:00 Test Item Value Reference Range Interpretation Comments Lymphocytes (test code = Lymphocytes) 28.8 20.0-40.0 [facility]anoGinpeciXTIKXCFACF3018-47-33 11:21:00 Test Item Value Reference Range Interpretation Comments WBC (test code = WBC) 8.8 3.7-10.4 [facility]anoOmljeftDMJWENEXJZ6046-00-72 11:21:00 Test Item Value Reference Range Interpretation Comments RBC (test code = RBC) 5.19 4.20-5.40 [facility]anoUtnhgqvLGULQWFVDV9742-78-61 11:21:00 Test Item Value Reference Range Interpretation Comments Hgb (test code = Hgb) 14.4 12.0-16.0 [facility]anoQgjxyrmEDDEJZSRBT5499-19-82 11:21:00 Test Item Value Reference Range Interpretation Comments Hct (test code = Hct) 43.1 36.0-48.0 [facility]anoEheezqfTFETPVETUC8117-85-40 11:21:00 Test Item Value Reference Range Interpretation Comments MCV (test code = MCV) 83.1 80.0-98.0 [facility]anoNmhcvwiOUQXSFKIRP5082-17-07 11:21:00 Test Item Value Reference Range Interpretation Comments MCH (test code = MCH) 27.8 pg 27.0-31.0 [facility]anoWspzceoDOOQLXYSEJ8663-84-27 11:21:00 Test Item Value Reference Range Interpretation Comments RDW (test code = RDW) 13.1 11.5-14.5 [facility]anoTfhawlcKXFNRRAVFO9186-36-46 11:21:00 Test Item Value Reference Range Interpretation Comments MCHC (test code = MCHC) 33.5 32.0-36.0 [facility]anoGpocdwwPZJLLFTZIS3898-34-47 11:21:00 Test Item Value Reference Range Interpretation Comments Platelet (test code = Platelet) 201 133-450 [facility] PlanoFaypvnrARRWXTBMZC6877-62-08 11:21:00 Test Item Value Reference Range Interpretation Comments MPV (test code = MPV) 10.4 7.4-10.4 [facility]2015-01-06 11:21:00 Test Item Value Reference Range Interpretation Comments Albumin Lvl (test code = Albumin Lvl) 3.2 3.5-5.0 [facility]2015-01-06 11:21:00 Test Item Value Reference Range Interpretation Comments Total Protein (test code = Total 6.6 6.4-8.4 Protein) [facility]2015-01-06 11:21:00 Test Item Value Reference Range Interpretation Comments Bili Total (test code = Bili Total) 0.6 0.2-1.3 [facility]2015-01-06 11:21:00 Test Item Value Reference Range Interpretation Comments Alk Phos (test code = Alk Phos) 59 39-136 [facility]2015-01-06 11:21:00 Test Item Value Reference Range Interpretation Comments AST (test code = AST) 11 See_Comment [Auto mated message] The system which ge nerated this result transmit rohit reference range : <=37. The reference range was not used to interpr et this result as reji l/abnormal. [facility]2015-01-06 11:21:00 Test Item Value Reference Range Interpretation Comments ALT (test code = ALT) 17 See_Comment [Auto mated message] The system which ge nerated this result transmit rohit reference range : <=65. The reference range was not used to interpr et this result as reji l/abnormal. [facility]2015-01-06 11:21:00 Test Item Value Reference Range Interpretation Comments eGFR (test code = eGFR) 99 [facility]2015-01-06 11:21:00 Test Item Value Reference Range Interpretation Comments Glucose Lvl (test code = Glucose Lvl) 314 70-99 [facility]2015-01-06 11:21:00 Test Item Value Reference Range Interpretation Comments Potassium Lvl (test code = Potassium 3.4 3.5-5.1 Lvl) [facility]2015-01-06 11:21:00 Test Item Value Reference Range Interpretation Comments BUN (test code = BUN) 11 7-22 [facility]2015-01-06 11:21:00 Test Item Value Reference Range Interpretation Comments Creatinine Lvl (test code = Creatinine 0.8 0.5-1.4 Lvl) [facility]2015-01-06 11:21:00 Test Item Value Reference Range Interpretation Comments Sodium Lvl (test code = Sodium Lvl) 134 135-145 [facility]2015-01-06 11:21:00 Test Item Value Reference Range Interpretation Comments Chloride Lvl (test code = Chloride Lvl) 94 95-109 [facility]2015-01-06 11:21:00 Test Item Value Reference Range Interpretation Comments Calcium Lvl (test code = Calcium Lvl) 9.1 8.5-10.5 [facility]2015-01-06 11:21:00 Test Item Value Reference Range Interpretation Comments CO2 (test code = CO2) 24 24-32 [facility]2015-01-06 11:21:00 Test Item Value Reference Range Interpretation Comments A/G Ratio (test code = A/G Ratio) 0.9 0.7-1.6 [facility]2015-01-06 11:21:00 Test Item Value Reference Range Interpretation Comments Globulin (test code = Globulin) 3.4 2.0-4.0 [facility]2015-01-06 11:21:00 Test Item Value Reference Range Interpretation Comments B/C Ratio (test code = B/C Ratio) 14 6-25 [facility]2015-01-06 11:21:00 Test Item Value Reference Range Interpretation Comments AGAP (test code = AGAP) 19.4 10.0-20.0 [facility]2015-01-06 11:21:00 Test Item Value Reference Range Interpretation Comments Lipase Lvl (test code = Lipase Lvl) 81 73-393 [facility]VhiczngOHOYLHMXCP5927-04-05 11:21:00 Test Item Value Reference Range Interpretation Comments Large Plt (test code = Large Plt) [facility]anoRomfrvqRHOWCHBVFV6846-34-87 11:21:00 Test Item Value Reference Range Interpretation Comments Basophils # (test code 0.0 See_Comment [Aut omated message] The = Basophils #) system which generated this result tra nsmitted reference range : <=0.2. The reference r leo was not used to int erpret this result as normal/abnormal . [facility]anoRjxozqvAYIGTBKFEL6857-90-37 11:21:00 Test Item Value Reference Range Interpretation Comments Anisocyte (test code = 1+ *ABN*(06/26/14 5:21 Anisocyte) AM) [facility]anoGtepfmxNUEZZVQTRL1549-93-18 11:21:00 Test Item Value Reference Range Interpretation Comments Monocytes # (test code 0.6 See_Comment [Aut omated message] The = Monocytes #) system which generated this result tra nsmitted reference range : <=0.8. The reference r leo was not used to int erpret this result as normal/abnormal . [facility]anoWjdenhlJNHFVDLNBP7889-64-49 11:21:00 Test Item Value Reference Range Interpretation Comments Eosinophils # (test code 0.1 See_Comment [A utomated message] The = Eosinophils #) system whic h generated this result tra nsmitted reference range : <=0.5. The reference r leo was not used to int erpret this result as normal/abnormal . [facility]anoYxcodhmGYAOQNSCHF7994-84-53 11:21:00 Test Item Value Reference Range Interpretation Comments Lymphocytes # (test code = Lymphocytes 2.5 1.0-5.5 #) [facility]anoVefrmiuROCLGHDKQE0255-43-45 11:21:00 Test Item Value Reference Range Interpretation Comments Segs (test code = Segs) 63.3 45.0-75.0 [facility]anoNirozcmTFFZSBYHYT7234-71-98 11:21:00 Test Item Value Reference Range Interpretation Comments Segs-Bands # (test code = Segs-Bands #) 5.6 1.5-8.1 [facility]anoLleitutPDCGHWOPCB0708-52-70 11:21:00 Test Item Value Reference Range Interpretation Comments Basophils (test code = 0.0 See_Comment [Aut omated message] The Basophils) system which ge nerated this result tra nsmitted reference range : <=1.0. The reference r leo was not used to int erpret this result as normal/abnormal . [facility]anoYhbfaqrDBHWCPNCKM4725-83-96 11:21:00 Test Item Value Reference Range Interpretation Comments Eosinophils (test code = 0.9 See_Comment [A utomated message] The Eosinophils) system which ge nerated this result tra nsmitted reference range : <=4.0. The reference r leo was not used to int erpret this result as normal/abnormal . [facility]anoYkvetcaJLZFPQQUWZ5683-57-67 11:21:00 Test Item Value Reference Range Interpretation Comments Monocytes (test code = Monocytes) 7.0 2.0-12.0 [facility]anoWsadzwuCTFGXFMQNL5787-41-91 11:21:00 Test Item Value Reference Range Interpretation Comments Lymphocytes (test code = Lymphocytes) 28.8 20.0-40.0 [facility]anoAiariihOZPTAQRFDS8199-30-75 11:21:00 Test Item Value Reference Range Interpretation Comments WBC (test code = WBC) 8.8 3.7-10.4 [facility]anoXgdakczZXUKYDPFCB5185-84-45 11:21:00 Test Item Value Reference Range Interpretation Comments RBC (test code = RBC) 5.19 4.20-5.40 [facility]anoUosncqhNTSOWFMAGZ0655-28-63 11:21:00 Test Item Value Reference Range Interpretation Comments Hgb (test code = Hgb) 14.4 12.0-16.0 [facility]anoKbuukwfGAQGUPDFGH7666-56-68 11:21:00 Test Item Value Reference Range Interpretation Comments Hct (test code = Hct) 43.1 36.0-48.0 [facility]anoYtbprpyEAETWMWXDY5285-12-45 11:21:00 Test Item Value Reference Range Interpretation Comments MCV (test code = MCV) 83.1 80.0-98.0 [facility]anoFsqmkgeOOELITHEYL6190-42-83 11:21:00 Test Item Value Reference Range Interpretation Comments MCH (test code = MCH) 27.8 pg 27.0-31.0 [facility]anoWczmbkjTJXHMETRUV9756-10-30 11:21:00 Test Item Value Reference Range Interpretation Comments RDW (test code = RDW) 13.1 11.5-14.5 [facility]anoSecrclbVTPLKHAWIY3065-90-68 11:21:00 Test Item Value Reference Range Interpretation Comments MCHC (test code = MCHC) 33.5 32.0-36.0 [facility]anoJsprwmfMBBBSRGJOU2156-75-57 11:21:00 Test Item Value Reference Range Interpretation Comments Platelet (test code = Platelet) 201 133-450 [facility]anoCcooippMJBQXTGSXQ7191-62-18 11:21:00 Test Item Value Reference Range Interpretation Comments MPV (test code = MPV) 10.4 7.4-10.4 [facility]2015-01-06 11:21:00 Test Item Value Reference Range Interpretation Comments Albumin Lvl (test code = Albumin Lvl) 3.2 3.5-5.0 [facility]2015-01-06 11:21:00 Test Item Value Reference Range Interpretation Comments Total Protein (test code = Total 6.6 6.4-8.4 Protein) [facility]2015-01-06 11:21:00 Test Item Value Reference Range Interpretation Comments Bili Total (test code = Bili Total) 0.6 0.2-1.3 [facility]2015-01-06 11:21:00 Test Item Value Reference Range Interpretation Comments Alk Phos (test code = Alk Phos) 59 39-136 [facility]2015-01-06 11:21:00 Test Item Value Reference Range Interpretation Comments AST (test code = AST) 11 See_Comment [Auto mated message] The system which ge nerated this result transmit rohit reference range : <=37. The reference range was not used to interpr et this result as reji l/abnormal. [facility]2015-01-06 11:21:00 Test Item Value Reference Range Interpretation Comments ALT (test code = ALT) 17 See_Comment [Auto mated message] The system which ge nerated this result transmit rohit reference range : <=65. The reference range was not used to interpr et this result as reji l/abnormal. [facility]2015-01-06 11:21:00 Test Item Value Reference Range Interpretation Comments eGFR (test code = eGFR) 99 [facility]2015-01-06 11:21:00 Test Item Value Reference Range Interpretation Comments Glucose Lvl (test code = Glucose Lvl) 314 70-99 [facility]2015-01-06 11:21:00 Test Item Value Reference Range Interpretation Comments Potassium Lvl (test code = Potassium 3.4 3.5-5.1 Lvl) [facility]2015-01-06 11:21:00 Test Item Value Reference Range Interpretation Comments BUN (test code = BUN) 11 7-22 [facility]2015-01-06 11:21:00 Test Item Value Reference Range Interpretation Comments Creatinine Lvl (test code = Creatinine 0.8 0.5-1.4 Lvl) [facility]2015-01-06 11:21:00 Test Item Value Reference Range Interpretation Comments Sodium Lvl (test code = Sodium Lvl) 134 135-145 [facility]2015-01-06 11:21:00 Test Item Value Reference Range Interpretation Comments Chloride Lvl (test code = Chloride Lvl) 94 95-109 [facility]2015-01-06 11:21:00 Test Item Value Reference Range Interpretation Comments Calcium Lvl (test code = Calcium Lvl) 9.1 8.5-10.5 [facility]2015-01-06 11:21:00 Test Item Value Reference Range Interpretation Comments CO2 (test code = CO2) 24 24-32 [facility]2015-01-06 11:21:00 Test Item Value Reference Range Interpretation Comments A/G Ratio (test code = A/G Ratio) 0.9 0.7-1.6 [facility]2015-01-06 11:21:00 Test Item Value Reference Range Interpretation Comments Globulin (test code = Globulin) 3.4 2.0-4.0 [facility]2015-01-06 11:21:00 Test Item Value Reference Range Interpretation Comments B/C Ratio (test code = B/C Ratio) 14 6-25 [facility]2015-01-06 11:21:00 Test Item Value Reference Range Interpretation Comments AGAP (test code = AGAP) 19.4 10.0-20.0 [facility]2015-01-06 11:21:00 Test Item Value Reference Range Interpretation Comments Lipase Lvl (test code = Lipase Lvl) 81 73-393 [facility]anoBlosrkoQHVUTNCBUE9282-03-12 11:21:00 Test Item Value Reference Range Interpretation Comments Large Plt (test code = Large Plt) [facility]anoEiuztrlPDFFPVGKDN1255-06-09 11:21:00 Test Item Value Reference Range Interpretation Comments Basophils # (test code 0.0 See_Comment [Aut omated message] The = Basophils #) system which generated this result tra nsmitted reference range : <=0.2. The reference r leo was not used to int erpret this result as normal/abnormal . [facility]anoSecspdfDWHVIZDKUI4601-67-58 11:21:00 Test Item Value Reference Range Interpretation Comments Anisocyte (test code = 1+ *ABN*(06/26/14 5:21 Anisocyte) AM) [facility]anoWvptccsNSKFQCTAQR4847-71-96 11:21:00 Test Item Value Reference Range Interpretation Comments Monocytes # (test code 0.6 See_Comment [Aut omated message] The = Monocytes #) system which generated this result tra nsmitted reference range : <=0.8. The reference r leo was not used to int erpret this result as normal/abnormal . [facility]anoYxmuxrpKJTQHRKFEI8366-08-41 11:21:00 Test Item Value Reference Range Interpretation Comments Eosinophils # (test code 0.1 See_Comment [A utomated message] The = Eosinophils #) system whic h generated this result tra nsmitted reference range : <=0.5. The reference r leo was not used to int erpret this result as normal/abnormal . [facility]anoYzuknrsXZDPKGNZKL3174-24-65 11:21:00 Test Item Value Reference Range Interpretation Comments Lymphocytes # (test code = Lymphocytes 2.5 1.0-5.5 #) [facility]anoNwuuokyEYRXISUDGP6904-19-59 11:21:00 Test Item Value Reference Range Interpretation Comments Segs (test code = Segs) 63.3 45.0-75.0 [facility]anoCnchcgsMTNISFXDVJ2179-21-77 11:21:00 Test Item Value Reference Range Interpretation Comments Segs-Bands # (test code = Segs-Bands #) 5.6 1.5-8.1 [facility]anoOygsycjYJRUCPVVXK9435-82-59 11:21:00 Test Item Value Reference Range Interpretation Comments Basophils (test code = 0.0 See_Comment [Aut omated message] The Basophils) system which ge nerated this result tra nsmitted reference range : <=1.0. The reference r leo was not used to int erpret this result as normal/abnormal . [facility]anoFgavxagKWIZSHSUOG0484-57-20 11:21:00 Test Item Value Reference Range Interpretation Comments Eosinophils (test code = 0.9 See_Comment [A utomated message] The Eosinophils) system which ge nerated this result tra nsmitted reference range : <=4.0. The reference r leo was not used to int erpret this result as normal/abnormal . [facility]anoNbdedvmZSLDVLSMNB0962-82-69 11:21:00 Test Item Value Reference Range Interpretation Comments Monocytes (test code = Monocytes) 7.0 2.0-12.0 [facility]anoGovkatfWTJDYCUUTJ3769-80-89 11:21:00 Test Item Value Reference Range Interpretation Comments Lymphocytes (test code = Lymphocytes) 28.8 20.0-40.0 [facility]anoGmicuujNVILAXHOOO4758-82-90 11:21:00 Test Item Value Reference Range Interpretation Comments WBC (test code = WBC) 8.8 3.7-10.4 [facility]anoBebgsrsUNFDVBRGOU2538-64-14 11:21:00 Test Item Value Reference Range Interpretation Comments RBC (test code = RBC) 5.19 4.20-5.40 [facility]anoXpxgrzwMXGBDMRBWW5028-15-88 11:21:00 Test Item Value Reference Range Interpretation Comments Hgb (test code = Hgb) 14.4 12.0-16.0 [facility]anoOxqrpckSFPHYHNXVL7226-93-53 11:21:00 Test Item Value Reference Range Interpretation Comments Hct (test code = Hct) 43.1 36.0-48.0 [facility]anoGdgfqliJTLIIUZIOZ8356-40-69 11:21:00 Test Item Value Reference Range Interpretation Comments MCV (test code = MCV) 83.1 80.0-98.0 [facility]anoOuzgemwUUDIEYHMKZ4189-74-68 11:21:00 Test Item Value Reference Range Interpretation Comments MCH (test code = MCH) 27.8 pg 27.0-31.0 [facility]anoWqecasaNCLNIHNGBB1298-18-99 11:21:00 Test Item Value Reference Range Interpretation Comments RDW (test code = RDW) 13.1 11.5-14.5 [facility]anoLrhclxmAHSPGVYURI9044-98-36 11:21:00 Test Item Value Reference Range Interpretation Comments MCHC (test code = MCHC) 33.5 32.0-36.0 [facility]anoYmebjxiRVOAFWWHDN2070-04-22 11:21:00 Test Item Value Reference Range Interpretation Comments Platelet (test code = Platelet) 201 133-450 [facility]anoIbuyrihDXUZCDKASY9915-71-36 11:21:00 Test Item Value Reference Range Interpretation Comments MPV (test code = MPV) 10.4 7.4-10.4 [facility]2015-01-06 11:21:00 Test Item Value Reference Range Interpretation Comments Albumin Lvl (test code = Albumin Lvl) 3.2 3.5-5.0 [facility]2015-01-06 11:21:00 Test Item Value Reference Range Interpretation Comments Total Protein (test code = Total 6.6 6.4-8.4 Protein) [facility]2015-01-06 11:21:00 Test Item Value Reference Range Interpretation Comments Bili Total (test code = Bili Total) 0.6 0.2-1.3 [facility]2015-01-06 11:21:00 Test Item Value Reference Range Interpretation Comments Alk Phos (test code = Alk Phos) 59 39-136 [facility]2015-01-06 11:21:00 Test Item Value Reference Range Interpretation Comments AST (test code = AST) 11 See_Comment [Auto mated message] The system which ge nerated this result transmit rohit reference range : <=37. The reference range was not used to interpr et this result as reji l/abnormal. [facility]2015-01-06 11:21:00 Test Item Value Reference Range Interpretation Comments ALT (test code = ALT) 17 See_Comment [Auto mated message] The system which ge nerated this result transmit rohit reference range : <=65. The reference range was not used to interpr et this result as reji l/abnormal. [facility]2015-01-06 11:21:00 Test Item Value Reference Range Interpretation Comments eGFR (test code = eGFR) 99 [facility]2015-01-06 11:21:00 Test Item Value Reference Range Interpretation Comments Glucose Lvl (test code = Glucose Lvl) 314 70-99 [facility]2015-01-06 11:21:00 Test Item Value Reference Range Interpretation Comments Potassium Lvl (test code = Potassium 3.4 3.5-5.1 Lvl) [facility]2015-01-06 11:21:00 Test Item Value Reference Range Interpretation Comments BUN (test code = BUN) 11 7-22 [facility]2015-01-06 11:21:00 Test Item Value Reference Range Interpretation Comments Creatinine Lvl (test code = Creatinine 0.8 0.5-1.4 Lvl) [facility]2015-01-06 11:21:00 Test Item Value Reference Range Interpretation Comments Sodium Lvl (test code = Sodium Lvl) 134 135-145 [facility]2015-01-06 11:21:00 Test Item Value Reference Range Interpretation Comments Chloride Lvl (test code = Chloride Lvl) 94 95-109 [facility]2015-01-06 11:21:00 Test Item Value Reference Range Interpretation Comments Calcium Lvl (test code = Calcium Lvl) 9.1 8.5-10.5 [facility]2015-01-06 11:21:00 Test Item Value Reference Range Interpretation Comments CO2 (test code = CO2) 24 24-32 [facility]2015-01-06 11:21:00 Test Item Value Reference Range Interpretation Comments A/G Ratio (test code = A/G Ratio) 0.9 0.7-1.6 [facility]2015-01-06 11:21:00 Test Item Value Reference Range Interpretation Comments Globulin (test code = Globulin) 3.4 2.0-4.0 [facility]2015-01-06 11:21:00 Test Item Value Reference Range Interpretation Comments B/C Ratio (test code = B/C Ratio) 14 6-25 [facility]2015-01-06 11:21:00 Test Item Value Reference Range Interpretation Comments AGAP (test code = AGAP) 19.4 10.0-20.0 [facility]2015-01-06 11:21:00 Test Item Value Reference Range Interpretation Comments Lipase Lvl (test code = Lipase Lvl) 81 73-393 [facility]anoLzmloctUQCBLDHXLU9093-45-28 11:21:00 Test Item Value Reference Range Interpretation Comments Large Plt (test code = Large Plt) [facility]anoQkdmbpxQMODLAEIOX0034-21-83 11:21:00 Test Item Value Reference Range Interpretation Comments Basophils # (test code 0.0 See_Comment [Aut omated message] The = Basophils #) system which generated this result tra nsmitted reference range : <=0.2. The reference r leo was not used to int erpret this result as normal/abnormal . [facility]anoJebdholSRTNDBXUKP4416-34-34 11:21:00 Test Item Value Reference Range Interpretation Comments Anisocyte (test code = 1+ *ABN*(06/26/14 5:21 Anisocyte) AM) [facility]anoEhlkzrmOOGRMPZVOR2173-52-17 11:21:00 Test Item Value Reference Range Interpretation Comments Monocytes # (test code 0.6 See_Comment [Aut omated message] The = Monocytes #) system which generated this result tra nsmitted reference range : <=0.8. The reference r leo was not used to int erpret this result as normal/abnormal . [facility]anoRbhnsicEHBURQSAAP9938-75-88 11:21:00 Test Item Value Reference Range Interpretation Comments Eosinophils # (test code 0.1 See_Comment [A utomated message] The = Eosinophils #) system whic h generated this result tra nsmitted reference range : <=0.5. The reference r leo was not used to int erpret this result as normal/abnormal . [facility] PlanoRckswwxXQYJQSPNME5228-33-63 11:21:00 Test Item Value Reference Range Interpretation Comments Lymphocytes # (test code = Lymphocytes 2.5 1.0-5.5 #) [facility]anoIfofewkSPDXWCYSQJ5937-05-81 11:21:00 Test Item Value Reference Range Interpretation Comments Segs (test code = Segs) 63.3 45.0-75.0 [facility]anoLasvjynZLVEODULBN8719-97-05 11:21:00 Test Item Value Reference Range Interpretation Comments Segs-Bands # (test code = Segs-Bands #) 5.6 1.5-8.1 [facility] PlanoHnumvxnUUQOHFRONN3069-23-53 11:21:00 Test Item Value Reference Range Interpretation Comments Basophils (test code = 0.0 See_Comment [Aut omated message] The Basophils) system which ge nerated this result tra nsmitted reference range : <=1.0. The reference r leo was not used to int erpret this result as normal/abnormal . [facility]anoFfwkdybTQXZOVMAOI3972-97-98 11:21:00 Test Item Value Reference Range Interpretation Comments Eosinophils (test code = 0.9 See_Comment [A utomated message] The Eosinophils) system which ge nerated this result tra nsmitted reference range : <=4.0. The reference r leo was not used to int erpret this result as normal/abnormal . [facility]anoTalhsoyKMPGEHBVFK0612-09-24 11:21:00 Test Item Value Reference Range Interpretation Comments Monocytes (test code = Monocytes) 7.0 2.0-12.0 [facility]anoEefyirnRVFCRQPCYL6772-96-27 11:21:00 Test Item Value Reference Range Interpretation Comments Lymphocytes (test code = Lymphocytes) 28.8 20.0-40.0 [facility] PlanoYyjiwftYXZJIDZFYA3637-16-95 11:21:00 Test Item Value Reference Range Interpretation Comments WBC (test code = WBC) 8.8 3.7-10.4 [facility]anoPsutmptZEGBKVULWH3656-02-28 11:21:00 Test Item Value Reference Range Interpretation Comments RBC (test code = RBC) 5.19 4.20-5.40 [facility] PlanoZysbvizCUKEMSZMLX1930-26-82 11:21:00 Test Item Value Reference Range Interpretation Comments Hgb (test code = Hgb) 14.4 12.0-16.0 [facility]anoNtwohzsDCTQEBIDSO1467-83-10 11:21:00 Test Item Value Reference Range Interpretation Comments Hct (test code = Hct) 43.1 36.0-48.0 [facility]anoEyipflrTTSYUVOIDL7509-36-51 11:21:00 Test Item Value Reference Range Interpretation Comments MCV (test code = MCV) 83.1 80.0-98.0 [facility]anoFtophchBRKXLBNMXC8750-25-05 11:21:00 Test Item Value Reference Range Interpretation Comments MCH (test code = MCH) 27.8 pg 27.0-31.0 [facility] PlanoVvirmwsJSXJXEYLQK2978-14-48 11:21:00 Test Item Value Reference Range Interpretation Comments RDW (test code = RDW) 13.1 11.5-14.5 [facility] PlanoZenoycgNSDNGVTRZV1996-19-59 11:21:00 Test Item Value Reference Range Interpretation Comments MCHC (test code = MCHC) 33.5 32.0-36.0 [facility] PlanoOnotdjwNOLOAGLKTS9463-05-76 11:21:00 Test Item Value Reference Range Interpretation Comments Platelet (test code = Platelet) 201 133-450 [facility]mrojaaETLHEOVGFA8341-41-50 11:21:00 Test Item Value Reference Range Interpretation Comments MPV (test code = MPV) 10.4 7.4-10.4 [facility]2015-01-06 11:21:00 Test Item Value Reference Range Interpretation Comments Albumin Lvl (test code = Albumin Lvl) 3.2 3.5-5.0 [facility]2015-01-06 11:21:00 Test Item Value Reference Range Interpretation Comments Total Protein (test code = Total 6.6 6.4-8.4 Protein) [facility]2015-01-06 11:21:00 Test Item Value Reference Range Interpretation Comments Bili Total (test code = Bili Total) 0.6 0.2-1.3 [facility]2015-01-06 11:21:00 Test Item Value Reference Range Interpretation Comments Alk Phos (test code = Alk Phos) 59 39-136 [facility]2015-01-06 11:21:00 Test Item Value Reference Range Interpretation Comments AST (test code = AST) 11 See_Comment [Auto mated message] The system which ge nerated this result transmit rohit reference range : <=37. The reference range was not used to interpr et this result as reji l/abnormal. [facility]2015-01-06 11:21:00 Test Item Value Reference Range Interpretation Comments ALT (test code = ALT) 17 See_Comment [Auto mated message] The system which ge nerated this result transmit rohit reference range : <=65. The reference range was not used to interpr et this result as reji l/abnormal. [facility]2015-01-06 11:21:00 Test Item Value Reference Range Interpretation Comments eGFR (test code = eGFR) 99 [facility]2015-01-06 11:21:00 Test Item Value Reference Range Interpretation Comments Glucose Lvl (test code = Glucose Lvl) 314 70-99 [facility]2015-01-06 11:21:00 Test Item Value Reference Range Interpretation Comments Potassium Lvl (test code = Potassium 3.4 3.5-5.1 Lvl) [place] 159635-01-06 11:21:00 Test Item Value Reference Range Interpretation Comments BUN (test code = BUN) 11 7-22 [facility]2015-01-06 11:21:00 Test Item Value Reference Range Interpretation Comments Creatinine Lvl (test code = Creatinine 0.8 0.5-1.4 Lvl) [facility]2015-01-06 11:21:00 Test Item Value Reference Range Interpretation Comments Sodium Lvl (test code = Sodium Lvl) 134 135-145 [facility]2015-01-06 11:21:00 Test Item Value Reference Range Interpretation Comments Chloride Lvl (test code = Chloride Lvl) 94 95-109 [facility]2015-01-06 11:21:00 Test Item Value Reference Range Interpretation Comments Calcium Lvl (test code = Calcium Lvl) 9.1 8.5-10.5 [facility]2015-01-06 11:21:00 Test Item Value Reference Range Interpretation Comments CO2 (test code = CO2) 24 24-32 [facility]2015-01-06 11:21:00 Test Item Value Reference Range Interpretation Comments A/G Ratio (test code = A/G Ratio) 0.9 0.7-1.6 [facility]2015-01-06 11:21:00 Test Item Value Reference Range Interpretation Comments Globulin (test code = Globulin) 3.4 2.0-4.0 [facility]2015-01-06 11:21:00 Test Item Value Reference Range Interpretation Comments B/C Ratio (test code = B/C Ratio) 14 6-25 [facility]2015-01-06 11:21:00 Test Item Value Reference Range Interpretation Comments AGAP (test code = AGAP) 19.4 10.0-20.0 [facility]2015-01-06 11:21:00 Test Item Value Reference Range Interpretation Comments Lipase Lvl (test code = Lipase Lvl) 81 73-393 [facility]anoThsqsnjVYNAFLJBOS3630-84-38 11:21:00 Test Item Value Reference Range Interpretation Comments Large Plt (test code = Large Plt) [facility] PlanoVgnwpeyHZJZMPGTEY7336-25-73 11:21:00 Test Item Value Reference Range Interpretation Comments Basophils # (test code 0.0 See_Comment [Aut omated message] The = Basophils #) system which generated this result tra nsmitted reference range : <=0.2. The reference r leo was not used to int erpret this result as normal/abnormal . [facility]UpyrrihEJLDCRKULC3789-81-45 11:21:00 Test Item Value Reference Range Interpretation Comments Anisocyte (test code = 1+ *ABN*(06/26/14 5:21 Anisocyte) AM) [facility]anoIhmvbrnSNSKKFLUMI4231-34-54 11:21:00 Test Item Value Reference Range Interpretation Comments Monocytes # (test code 0.6 See_Comment [Aut omated message] The = Monocytes #) system which generated this result tra nsmitted reference range : <=0.8. The reference r leo was not used to int erpret this result as normal/abnormal . [facility]anoYlyvfwcLATTOXBPWU4778-93-14 11:21:00 Test Item Value Reference Range Interpretation Comments Eosinophils # (test code 0.1 See_Comment [A utomated message] The = Eosinophils #) system whic h generated this result tra nsmitted reference range : <=0.5. The reference r leo was not used to int erpret this result as normal/abnormal . [facility]anoClczrwiNEOYMJPOYA3982-49-37 11:21:00 Test Item Value Reference Range Interpretation Comments Lymphocytes # (test code = Lymphocytes 2.5 1.0-5.5 #) [facility]anoWmivafkAOABBCXCLA4483-72-76 11:21:00 Test Item Value Reference Range Interpretation Comments Segs (test code = Segs) 63.3 45.0-75.0 [facility]anoYvcvpstDFAPCPSNLX1202-07-07 11:21:00 Test Item Value Reference Range Interpretation Comments Segs-Bands # (test code = Segs-Bands #) 5.6 1.5-8.1 [facility]anoBbzcluiQOMSXYDYGG9328-02-07 11:21:00 Test Item Value Reference Range Interpretation Comments Basophils (test code = 0.0 See_Comment [Aut omated message] The Basophils) system which ge nerated this result tra nsmitted reference range : <=1.0. The reference r leo was not used to int erpret this result as normal/abnormal . [facility]anoRllwtugZRXBCKJNRU6690-41-29 11:21:00 Test Item Value Reference Range Interpretation Comments Eosinophils (test code = 0.9 See_Comment [A utomated message] The Eosinophils) system which ge nerated this result tra nsmitted reference range : <=4.0. The reference r leo was not used to int erpret this result as normal/abnormal . [facility]anoRztavzpITELZDUGRF4245-20-23 11:21:00 Test Item Value Reference Range Interpretation Comments Monocytes (test code = Monocytes) 7.0 2.0-12.0 [facility]anoLkkkwehRRWPEZMSUZ6619-05-34 11:21:00 Test Item Value Reference Range Interpretation Comments Lymphocytes (test code = Lymphocytes) 28.8 20.0-40.0 [facility]anoJvvrydbCWLYQGENNC4972-71-05 11:21:00 Test Item Value Reference Range Interpretation Comments WBC (test code = WBC) 8.8 3.7-10.4 [facility]anoJkxctmkHYUQLUPPBB0899-77-33 11:21:00 Test Item Value Reference Range Interpretation Comments RBC (test code = RBC) 5.19 4.20-5.40 [facility]anoEenvehuFYFTBKVRRE9884-00-24 11:21:00 Test Item Value Reference Range Interpretation Comments Hgb (test code = Hgb) 14.4 12.0-16.0 [facility]anoVwnhgalARFPOEGOHH8803-74-67 11:21:00 Test Item Value Reference Range Interpretation Comments Hct (test code = Hct) 43.1 36.0-48.0 [facility]anoLkqpymgHLNQBBBNFE7745-40-78 11:21:00 Test Item Value Reference Range Interpretation Comments MCV (test code = MCV) 83.1 80.0-98.0 [facility]anoWagoiiuSFMUUVAMPP9561-49-27 11:21:00 Test Item Value Reference Range Interpretation Comments MCH (test code = MCH) 27.8 pg 27.0-31.0 [facility]anoKpkvlgeJLVAEQPRNE0428-45-86 11:21:00 Test Item Value Reference Range Interpretation Comments RDW (test code = RDW) 13.1 11.5-14.5 [facility]anoCqxilshFJYUVJTAQW0733-30-47 11:21:00 Test Item Value Reference Range Interpretation Comments MCHC (test code = MCHC) 33.5 32.0-36.0 [facility]anoMqsjwixMBVAGPAXFK7075-05-11 11:21:00 Test Item Value Reference Range Interpretation Comments Platelet (test code = Platelet) 201 133-450 [facility]anoZledqvwCXYRWSKHDL0951-55-17 11:21:00 Test Item Value Reference Range Interpretation Comments MPV (test code = MPV) 10.4 7.4-10.4 [facility] TylerGexichzTGTHOGUNUL6951-33-05 04:48:55 Test Item Value Reference Range Interpretation Comments UA [place] Yeast (test code = UA Occasional /HPF A [place] Yeast) [facility] TylerBtwzlupOQOJDDIDOT7883-07-42 04:48:55 Test Item Value Reference Range Interpretation Comments UA Mucus (test code = UA Mucus) Few /LPF N [facility] TylerZjiircsKZTLBUNYGQ9296-74-55 04:48:55 Test Item Value Reference Range Interpretation Comments UA Sq Epi (test code = UA Sq Moderate /LPF A Epi) [facility] TylerFignrfmGSCWBKOUNE0400-07-60 04:48:55 Test Item Value Reference Range Interpretation Comments Micro? (test code = Performed (04/14/2013 N Micro?) 23:48:55) [facility] TylerUshccvcMDETOAQKVO0189-47-40 04:48:55 Test Item Value Reference Range Interpretation Comments UA WBC (test code = UA WBC) 0-2 /HPF N [facility] TylerYuxzoajIPEGCZGIOA2781-41-15 04:48:55 Test Item Value Reference Range Interpretation Comments UA Bacteria (test code = UA Occasional /HPF N Bacteria) [facility] TylerBksrdomCRVYCNRPNN3672-97-25 04:48:55 Test Item Value Reference Range Interpretation Comments UA Glucose (test code = UA Glucose) 500 mg/dL A [facility] TylerYzhmniaUXNZGZQISX6940-64-33 04:48:55 Test Item Value Reference Range Interpretation Comments UA Bili (test code = Negative *NA*(04/14/2013 UA Bili) 23:48:55) [facility] TylerJbipndcEWLQWNJSOK8001-05-91 04:48:55 Test Item Value Reference Range Interpretation Comments UA Ketones (test code = Trace A UA Ketones) *ABN*(04/14/2013 23:48:55) [facility] TylerKkjymypKMVJRQZTVC8767-30-89 04:48:55 Test Item Value Reference Range Interpretation Comments UA Blood (test code = Negative (04/14/2013 N UA Blood) 23:48:55) [facility] TylerCucrhwfXCASMHQWQJ3368-55-23 04:48:55 Test Item Value Reference Range Interpretation Comments UA Urobilinogen (test code = UA 0.2 0.1-1.0 N Urobilinogen) [facility] TylerQcwjdcaQULRLBYLJD8307-09-14 04:48:55 Test Item Value Reference Range Interpretation Comments UA Nitrite (test code Negative (04/14/2013 N = UA Nitrite) 23:48:55) [facility] TylerZvdaljrLQMOOWDMRE8447-64-82 04:48:55 Test Item Value Reference Range Interpretation Comments UA Leuk Est (test Negative (04/14/2013 N code = UA Leuk Est) 23:48:55) [facility] TylerSxvboasSRSLLTRLMO4780-72-70 04:48:55 Test Item Value Reference Range Interpretation Comments UA Turbidity (test code = Clear (04/14/2013 N UA Turbidity) 23:48:55) [facility] TylerJyqezncYBQBMVUZEC2519-18-03 04:48:55 Test Item Value Reference Range Interpretation Comments UA Color (test code = Yellow *NA*(04/14/2013 UA Color) 23:48:55) [facility] TylerDkxvshxISNHQJYNJY0023-66-36 04:48:55 Test Item Value Reference Range Interpretation Comments UA pH (test code = UA pH) 7.0 1 5.0-8.0 N [facility] TylerArcangoVXRNIUMDKK6790-58-37 04:48:55 Test Item Value Reference Range Interpretation Comments UA Spec Grav (test code = UA Spec 1.025 1 N Grav) [facility] TylerPyfzdslLBTEANRTMF2612-02-12 04:48:55 Test Item Value Reference Range Interpretation Comments UA Protein (test code = Trace A UA Protein) *ABN*(04/14/2013 23:48:55) [facility] TylerXmycgduHBMOAGYERV6627-49-13 04:48:55 Test Item Value Reference Range Interpretation Comments UA [place] Yeast (test code = UA Occasional /HPF A [place] Yeast) [facility] TylerIpmoejfWRRQVJQQQV1673-93-44 04:48:55 Test Item Value Reference Range Interpretation Comments UA Mucus (test code = UA Mucus) Few /LPF N [facility] TylerRovnwxoAEZNJKWNWT6704-70-20 04:48:55 Test Item Value Reference Range Interpretation Comments UA Sq Epi (test code = UA Sq Moderate /LPF A Epi) [facility] TylerGjdchowOWOPOJRORS6990-29-88 04:48:55 Test Item Value Reference Range Interpretation Comments Micro? (test code = Performed (04/14/2013 N Micro?) 23:48:55) [facility] TylerEujobwkRAYVNGBRZM6180-39-39 04:48:55 Test Item Value Reference Range Interpretation Comments UA WBC (test code = UA WBC) 0-2 /HPF N [facility] TylerRfqctdwOJHQCBXWPS0705-31-42 04:48:55 Test Item Value Reference Range Interpretation Comments UA Bacteria (test code = UA Occasional /HPF N Bacteria) [facility] TylerIbtzumuTCJQGCHLHV7851-53-36 04:48:55 Test Item Value Reference Range Interpretation Comments UA Glucose (test code = UA Glucose) 500 mg/dL A [facility] TylerHkzflbtIDAHRSXGPX5642-47-72 04:48:55 Test Item Value Reference Range Interpretation Comments UA Bili (test code = Negative *NA*(04/14/2013 UA Bili) 23:48:55) [facility] TylerTmdixuzLTCPSELHMT7313-18-80 04:48:55 Test Item Value Reference Range Interpretation Comments UA Ketones (test code = Trace A UA Ketones) *ABN*(04/14/2013 23:48:55) [facility] TylerJnafsadXWVUZXKQIX8253-07-91 04:48:55 Test Item Value Reference Range Interpretation Comments UA Blood (test code = Negative (04/14/2013 N UA Blood) 23:48:55) [facility] TylerOacyzakQWUQBEROAW9163-87-28 04:48:55 Test Item Value Reference Range Interpretation Comments UA Urobilinogen (test code = UA 0.2 0.1-1.0 N Urobilinogen) [facility] TylerJsrqhhwOVPHZANQGB6947-98-95 04:48:55 Test Item Value Reference Range Interpretation Comments UA Nitrite (test code Negative (04/14/2013 N = UA Nitrite) 23:48:55) [facility] TylerFfzhjkwABXDSKDLIH0984-24-17 04:48:55 Test Item Value Reference Range Interpretation Comments UA Leuk Est (test Negative (04/14/2013 N code = UA Leuk Est) 23:48:55) [facility] TylerIsrrpyxLSOLBRGINH4435-83-12 04:48:55 Test Item Value Reference Range Interpretation Comments UA Turbidity (test code = Clear (04/14/2013 N UA Turbidity) 23:48:55) [facility] TylerKfsswvdZTUVBOOZLW9314-70-57 04:48:55 Test Item Value Reference Range Interpretation Comments UA Color (test code = Yellow *NA*(04/14/2013 UA Color) 23:48:55) [facility] TylerXgbptanZBALIFLSMA3706-72-11 04:48:55 Test Item Value Reference Range Interpretation Comments UA pH (test code = UA pH) 7.0 1 5.0-8.0 N [facility] TylerKfryyycBCDUFYVWRN6242-26-61 04:48:55 Test Item Value Reference Range Interpretation Comments UA Spec Grav (test code = UA Spec 1.025 1 N Grav) [facility] TylerFpihsdlXQFAUDZUXJ7708-56-81 04:48:55 Test Item Value Reference Range Interpretation Comments UA Protein (test code = Trace A UA Protein) *ABN*(04/14/2013 23:48:55) [facility] TylerQrzdxrsPVQAQZGAZC2923-78-74 04:48:55 Test Item Value Reference Range Interpretation Comments UA [place] Yeast (test code = UA Occasional /HPF A [place] Yeast) [facility] TylerLjfljsgRBTYNSPKVN6083-79-22 04:48:55 Test Item Value Reference Range Interpretation Comments UA Mucus (test code = UA Mucus) Few /LPF N [facility] TylerKjxuvfgQDWTGHUENH3047-03-97 04:48:55 Test Item Value Reference Range Interpretation Comments UA Sq Epi (test code = UA Sq Moderate /LPF A Epi) [facility] TylerDibkcupOOUVXOOGBV1957-88-64 04:48:55 Test Item Value Reference Range Interpretation Comments Micro? (test code = Performed (04/14/2013 N Micro?) 23:48:55) [facility] TylerEvphjsfGXPLRNMJOG9504-19-13 04:48:55 Test Item Value Reference Range Interpretation Comments UA WBC (test code = UA WBC) 0-2 /HPF N [facility] TylerLvfvuxgNYGLSEEGZR9172-96-14 04:48:55 Test Item Value Reference Range Interpretation Comments UA Bacteria (test code = UA Occasional /HPF N Bacteria) [facility] TylerMsuasfcHDPLMDLCVN7890-36-71 04:48:55 Test Item Value Reference Range Interpretation Comments UA Glucose (test code = UA Glucose) 500 mg/dL A [facility] TylerRiforpzYHLNCPEGBN7198-42-24 04:48:55 Test Item Value Reference Range Interpretation Comments UA Bili (test code = Negative *NA*(04/14/2013 UA Bili) 23:48:55) [facility] TylerHzxhjszMSXMCXWIBU8301-78-79 04:48:55 Test Item Value Reference Range Interpretation Comments UA Ketones (test code = Trace A UA Ketones) *ABN*(04/14/2013 23:48:55) [facility] TylerAzrebpsOCRNOAUXOC7250-86-88 04:48:55 Test Item Value Reference Range Interpretation Comments UA Blood (test code = Negative (04/14/2013 N UA Blood) 23:48:55) [facility] TylerPppdbkjGQJGVPBMPX6467-07-51 04:48:55 Test Item Value Reference Range Interpretation Comments UA Urobilinogen (test code = UA 0.2 0.1-1.0 N Urobilinogen) [facility] TylerRvfkesmXQSKMQRAOJ5190-92-44 04:48:55 Test Item Value Reference Range Interpretation Comments UA Nitrite (test code Negative (04/14/2013 N = UA Nitrite) 23:48:55) [facility] TylerXqjtszgAJJTVYVAAP3482-99-01 04:48:55 Test Item Value Reference Range Interpretation Comments UA Leuk Est (test Negative (04/14/2013 N code = UA Leuk Est) 23:48:55) [facility] TylerXdjwflrWTRSKUUAUB0107-57-15 04:48:55 Test Item Value Reference Range Interpretation Comments UA Turbidity (test code = Clear (04/14/2013 N UA Turbidity) 23:48:55) [facility] TylerPzuochzRAUJOBZYCZ5194-44-26 04:48:55 Test Item Value Reference Range Interpretation Comments UA Color (test code = Yellow *NA*(04/14/2013 UA Color) 23:48:55) [facility] TylerRlrpowaEPPMOVVHGK0326-83-30 04:48:55 Test Item Value Reference Range Interpretation Comments UA pH (test code = UA pH) 7.0 1 5.0-8.0 N [facility] TylerLyftwygXMCZMBWBPW4861-07-56 04:48:55 Test Item Value Reference Range Interpretation Comments UA Spec Grav (test code = UA Spec 1.025 1 N Grav) [facility] TylerPntfftoFDRVWLWVBV5614-89-01 04:48:55 Test Item Value Reference Range Interpretation Comments UA Protein (test code = Trace A UA Protein) *ABN*(04/14/2013 23:48:55) [facility] TylerIxaelgpGPMDUZYCSE1721-07-68 04:48:55 Test Item Value Reference Range Interpretation Comments UA [place] Yeast (test code = UA Occasional /HPF A [place] Yeast) [facility] TylerJtnozhhMVVVBRBZMO5791-83-91 04:48:55 Test Item Value Reference Range Interpretation Comments UA Mucus (test code = UA Mucus) Few /LPF N [facility] TylerXbnoumgNMCXEXPOFS6804-75-99 04:48:55 Test Item Value Reference Range Interpretation Comments UA Sq Epi (test code = UA Sq Moderate /LPF A Epi) [facility] TylerQivgkmyFQVKHSBGUX9312-18-97 04:48:55 Test Item Value Reference Range Interpretation Comments Micro? (test code = Performed (04/14/2013 N Micro?) 23:48:55) [facility] TylerLkopuylNCIJNUUQYV8360-33-07 04:48:55 Test Item Value Reference Range Interpretation Comments UA WBC (test code = UA WBC) 0-2 /HPF N [facility] TylerFpdwpjtXCYSCUPJID2360-77-84 04:48:55 Test Item Value Reference Range Interpretation Comments UA Bacteria (test code = UA Occasional /HPF N Bacteria) [facility] TylerPskfwksVTUNDRDASP6600-97-53 04:48:55 Test Item Value Reference Range Interpretation Comments UA Glucose (test code = UA Glucose) 500 mg/dL A [facility] TylerTtcapydOTVSGYIPAJ4613-49-88 04:48:55 Test Item Value Reference Range Interpretation Comments UA Bili (test code = Negative *NA*(04/14/2013 UA Bili) 23:48:55) [facility] TylerWqsxsysLDQRPOVXQJ0840-68-40 04:48:55 Test Item Value Reference Range Interpretation Comments UA Ketones (test code = Trace A UA Ketones) *ABN*(04/14/2013 23:48:55) [facility] TylerWjaljuiIMXPLGMTPY5527-28-21 04:48:55 Test Item Value Reference Range Interpretation Comments UA Blood (test code = Negative (04/14/2013 N UA Blood) 23:48:55) [facility] TylerDrwwlxrDHRLXPOOFH4991-39-95 04:48:55 Test Item Value Reference Range Interpretation Comments UA Urobilinogen (test code = UA 0.2 0.1-1.0 N Urobilinogen) [facility] TylerExzqsowFTELIPPEFG3188-87-70 04:48:55 Test Item Value Reference Range Interpretation Comments UA Nitrite (test code Negative (04/14/2013 N = UA Nitrite) 23:48:55) [facility]scfvcXQMKMXJHKN1995-69-08 04:48:55 Test Item Value Reference Range Interpretation Comments UA Leuk Est (test Negative (04/14/2013 N code = UA Leuk Est) 23:48:55) [facility] CenterOlanmweIMVXSACBQK4743-43-05 04:48:55 Test Item Value Reference Range Interpretation Comments UA Turbidity (test code = Clear (04/14/2013 N UA Turbidity) 23:48:55) [facility] TylerXjvvhloKZMFQUOEAS0974-36-57 04:48:55 Test Item Value Reference Range Interpretation Comments UA Color (test code = Yellow *NA*(04/14/2013 UA Color) 23:48:55) [facility] TylerIxubldeFYWKTHMZTW2701-08-92 04:48:55 Test Item Value Reference Range Interpretation Comments UA pH (test code = UA pH) 7.0 1 5.0-8.0 N [facility] TylerEmdprrgVXVOMENPQY1534-31-13 04:48:55 Test Item Value Reference Range Interpretation Comments UA Spec Grav (test code = UA Spec 1.025 1 N Grav) [facility] TylerDccolweOLGUEBAJTS8805-92-87 04:48:55 Test Item Value Reference Range Interpretation Comments UA Protein (test code = Trace A UA Protein) *ABN*(04/14/2013 23:48:55) [facility] TylerOwofsgnHQDDBORVTI9626-68-81 04:48:55 Test Item Value Reference Range Interpretation Comments UA [place] Yeast (test code = UA Occasional /HPF A [place] Yeast) [facility] TylerVggilcbJYOKQSUTMI8430-59-97 04:48:55 Test Item Value Reference Range Interpretation Comments UA Mucus (test code = UA Mucus) Few /LPF N [facility] TylerDziwyjmJHEBHVYMQP9442-91-34 04:48:55 Test Item Value Reference Range Interpretation Comments UA Sq Epi (test code = UA Sq Moderate /LPF A Epi) [facility] TylerAfcbxslBYASBJKILH9531-76-58 04:48:55 Test Item Value Reference Range Interpretation Comments Micro? (test code = Performed (04/14/2013 N Micro?) 23:48:55) [facility] TylerAubxirxVEBVTZJZTC0271-42-38 04:48:55 Test Item Value Reference Range Interpretation Comments UA WBC (test code = UA WBC) 0-2 /HPF N [facility] TylerCwpatdwTMNNHTVEUL1019-43-50 04:48:55 Test Item Value Reference Range Interpretation Comments UA Bacteria (test code = UA Occasional /HPF N Bacteria) [facility] TylerLhhqhubSREASGWTEY6833-90-06 04:48:55 Test Item Value Reference Range Interpretation Comments UA Glucose (test code = UA Glucose) 500 mg/dL A [facility] TylerVmhqnjmTZSBYLDGZY2510-61-24 04:48:55 Test Item Value Reference Range Interpretation Comments UA Bili (test code = Negative *NA*(04/14/2013 UA Bili) 23:48:55) [facility] TylerBoxspjyTMQGIAGGZO5716-40-19 04:48:55 Test Item Value Reference Range Interpretation Comments UA Ketones (test code = Trace A UA Ketones) *ABN*(04/14/2013 23:48:55) [facility] TylerLqkpyehWRIHGNFACK0617-34-34 04:48:55 Test Item Value Reference Range Interpretation Comments UA Blood (test code = Negative (04/14/2013 N UA Blood) 23:48:55) [facility] TylerOyildjrTSQBQRVJIZ8742-99-90 04:48:55 Test Item Value Reference Range Interpretation Comments UA Urobilinogen (test code = UA 0.2 0.1-1.0 N Urobilinogen) [facility] TylerJswqcodMBCGFIKTXB2180-76-30 04:48:55 Test Item Value Reference Range Interpretation Comments UA Nitrite (test code Negative (04/14/2013 N = UA Nitrite) 23:48:55) [facility] TylerNixtxmiQGREPVLGLZ9966-41-64 04:48:55 Test Item Value Reference Range Interpretation Comments UA Leuk Est (test Negative (04/14/2013 N code = UA Leuk Est) 23:48:55) [facility] TylerOpcxnqkVPZTNUSUBF7419-51-32 04:48:55 Test Item Value Reference Range Interpretation Comments UA Turbidity (test code = Clear (04/14/2013 N UA Turbidity) 23:48:55) [facility] TylerYiyzdbmJEEBXUSQSK9303-30-63 04:48:55 Test Item Value Reference Range Interpretation Comments UA Color (test code = Yellow *NA*(04/14/2013 UA Color) 23:48:55) [facility] TylerEormpceIHZJAQWSNB0624-41-54 04:48:55 Test Item Value Reference Range Interpretation Comments UA pH (test code = UA pH) 7.0 1 5.0-8.0 N [facility] TylerUogfrpwAPIIHYMPDU5413-37-02 04:48:55 Test Item Value Reference Range Interpretation Comments UA Spec Grav (test code = UA Spec 1.025 1 N Grav) [facility]SjirkxtWLYHTRGJBL3740-35-27 04:48:55 Test Item Value Reference Range Interpretation Comments UA Protein (test code = Trace A UA Protein) *ABN*(04/14/2013 23:48:55) [facility] AustinDestipnJODHYOZOB4885-43-59 04:28:00 Test Item Value Reference Range Interpretation Comments S Preg (test code = S Negative *NA*(04/14/2013 Preg) 23:28:00) [facility] AustinXejyjhjMCTMDPLQU7634-16-06 04:28:00 Test Item Value Reference Range Interpretation Comments Lipase Lvl (test code = Lipase Lvl) 233 73-393 N [facility] AustinYjsvnwiLQEGRTWQR3315-45-51 04:28:00 Test Item Value Reference Range Interpretation Comments Globulin (test code = Globulin) 4.1 2.0-4.0 H [facility] AustinGkfolsiZOXKPONMI1544-95-74 04:28:00 Test Item Value Reference Range Interpretation Comments AGAP (test code = AGAP) 10.5 10.0-20.0 N [facility] AustinGwfhkegTSCNOXAYB8580-51-53 04:28:00 Test Item Value Reference Range Interpretation Comments B/C Ratio (test code = B/C Ratio) 6 6-25 N [facility] AustinZsdxrnuWSZGAPYRW4262-45-86 04:28:00 Test Item Value Reference Range Interpretation Comments A/G Ratio (test code = A/G Ratio) 0.7 0.7-1.6 N [facility] AustinVnjjmjyBNMKOVSCI9651-22-77 04:28:00 Test Item Value Reference Range Interpretation Comments eGFR (test code = eGFR) 130 [facility] AustinJmomvmsWAUBRQBEQ5502-97-97 04:28:00 Test Item Value Reference Range Interpretation Comments Albumin Lvl (test code = Albumin Lvl) 2.9 3.5-5.0 L [facility] AustinSlingbsVOWFVOESA2780-24-54 04:28:00 Test Item Value Reference Range Interpretation Comments ASPARTATE TRANSAMINASE 20 See_Comment N [Aut omated message] (test code = ASPARTATE The s ystem which TRANSAMINASE) generated this result transmitted ref erence range: <=37. Th e reference range was not used to interpr et this result as normal/abnormal . [facility] AustinNzfghdhQPINPIRDE7224-93-92 04:28:00 Test Item Value Reference Range Interpretation Comments Bili Total (test code = Bili Total) 0.5 0.2-1.3 N [facility] AustinXrcmvaqHHPOGFVPW0271-51-35 04:28:00 Test Item Value Reference Range Interpretation Comments Alk Phos (test code = Alk Phos) 89 39-136 N [facility] AustinRzrcvdjMOSVVXEGH2991-26-78 04:28:00 Test Item Value Reference Range Interpretation Comments ALANINE AMINOTRANSFERASE 11 See_Comment N [A utomated message] (test code = ALANINE The sys tem which AMINOTRANSFERASE) generated this result transmitted ref erence range: <=65. Th e reference range was not used to int erpret this result as normal/abnormal . [facility] AustinNxdkpjkZECXIJTKA4604-91-52 04:28:00 Test Item Value Reference Range Interpretation Comments Creatinine Lvl (test code = Creatinine 0.5 0.5-1.4 N Lvl) [facility] AustinTsmchbvZJSOUNZRJ9460-47-69 04:28:00 Test Item Value Reference Range Interpretation Comments BUN (test code = BUN) 3 7-22 L [facility] AustinQoginmsYKMJFKHYR9089-31-18 04:28:00 Test Item Value Reference Range Interpretation Comments Glucose Lvl (test code = Glucose Lvl) 255 70-99 H [facility] AustinAgfpamaSWYVIWCCQ7480-41-84 04:28:00 Test Item Value Reference Range Interpretation Comments Total Protein (test code = Total 7.0 6.4-8.4 N Protein) [facility] AustinExhmelbDWRCIFSWW5681-90-88 04:28:00 Test Item Value Reference Range Interpretation Comments Calcium Lvl (test code = Calcium Lvl) 8.7 8.5-10.5 N [facility] [place]WdwpdgdBEARROPKR3194-97-19 04:28:00 Test Item Value Reference Range Interpretation Comments CO2 (test code = CO2) 29 24-32 N [facility] AustinCettvndGDCHGMJCH4564-63-72 04:28:00 Test Item Value Reference Range Interpretation Comments Chloride Lvl (test code = Chloride Lvl) 104 95-109 N [facility] AustinJdukahrUHAKHMJPB6297-05-38 04:28:00 Test Item Value Reference Range Interpretation Comments Potassium Lvl (test code = Potassium 3.5 3.5-5.1 N Lvl) [facility] AustinSvrjzaqBJJCYGEDX4871-37-84 04:28:00 Test Item Value Reference Range Interpretation Comments Sodium Lvl (test code = Sodium Lvl) 140 135-145 N [facility]OgoymdnUKIEMHDBKI3986-51-22 04:28:00 Test Item Value Reference Range Interpretation Comments PROTIME (test code = PROTIME) 12.1 s 12.0-14.7 N [facility]anoOkaefhwBJLVKMHQFS6395-05-48 04:28:00 Test Item Value Reference Range Interpretation Comments aPTT (test code = aPTT) 39.0 s 22.9-35.8 H [facility]anoCdegonzADYEIFIKGY2017-11-25 04:28:00 Test Item Value Reference Range Interpretation Comments INR (test code = INR) 0.90 0.85-1.17 N [facility]anoJttfadfGLRSRSHETA0368-49-37 04:28:00 Test Item Value Reference Range Interpretation Comments MCH (test code = MCH) 29.4 pg 27.0-31.0 N [facility]anoCtmvgmvXNXNCIKZAA9873-20-24 04:28:00 Test Item Value Reference Range Interpretation Comments MCV (test code = MCV) 86.1 81.0-99.0 N [facility]anoEgmktsyIIQLQAYATR0645-81-65 04:28:00 Test Item Value Reference Range Interpretation Comments Hct (test code = Hct) 29.4 36.0-48.0 L [facility]anoNenwpqgHNMOHWVZJN9458-92-59 04:28:00 Test Item Value Reference Range Interpretation Comments RDW (test code = RDW) 14.0 11.5-14.5 N [facility]anoAinqfxxJAJRIBZXEM7289-87-96 04:28:00 Test Item Value Reference Range Interpretation Comments WBC X 10x3 (test code = WBC X 10x3) 6.2 3.7-10.4 N [facility]anoAucliocAQMMXCGUBV6597-84-81 04:28:00 Test Item Value Reference Range Interpretation Comments Platelet (test code = Platelet) 178 133-450 N [facility]anoHrjyqerUATNJMGVGU9584-02-83 04:28:00 Test Item Value Reference Range Interpretation Comments MCHC (test code = MCHC) 34.1 32.0-36.0 N [facility]anoTwjmljnXVQNKOREJN4409-36-65 04:28:00 Test Item Value Reference Range Interpretation Comments RBC X 10x6 (test code = RBC X 10x6) 3.41 4.20-5.40 L [facility]anoOjqhnwnMPECAXMGKT2928-32-28 04:28:00 Test Item Value Reference Range Interpretation Comments Hgb (test code = Hgb) 10.0 12.0-16.0 L [facility]anoVcwdfrnPNSEVXBGDH3149-43-10 04:28:00 Test Item Value Reference Range Interpretation Comments MPV (test code = MPV) 10.1 7.4-10.4 N [facility]anoPlecngdHDAPYSAXMC9885-21-97 04:28:00 Test Item Value Reference Range Interpretation Comments Segs-Bands # (test code = Segs-Bands #) 4.4 1.5-8.1 N [facility]anoRsgvwwtNBYJVDJPON0205-89-15 04:28:00 Test Item Value Reference Range Interpretation Comments Basophils (test code = 0.7 See_Comment N [Aut omated message] The Basophils) system which ge nerated this result tra nsmitted reference range : <=1.0. The reference r leo was not used to int erpret this result as normal/abnormal . [facility]anoPyxufejYUOPIYMJUM2292-07-56 04:28:00 Test Item Value Reference Range Interpretation Comments Segs (test code = Segs) 70.7 45.0-75.0 N [facility]anoKjvhtqnVFJPUKOGHF2460-09-60 04:28:00 Test Item Value Reference Range Interpretation Comments Monocytes # (test code 0.3 See_Comment N [Aut omated message] The = Monocytes #) system which generated this result tra nsmitted reference range : <=0.8. The reference r leo was not used to int erpret this result as normal/abnormal . [facility]anoMemfnvgRIBXWRQHIJ8688-62-17 04:28:00 Test Item Value Reference Range Interpretation Comments Lymphocytes # (test code = Lymphocytes 1.2 1.0-5.5 N #) [facility]anoDavhgxeOBZAHGLHQY3942-66-44 04:28:00 Test Item Value Reference Range Interpretation Comments Monocytes (test code = Monocytes) 4.5 2.0-12.0 N [facility]anoWelhayoYJKHFDTUZM0660-36-35 04:28:00 Test Item Value Reference Range Interpretation Comments Eosinophils (test code = 4.1 See_Comment H [A utomated message] The Eosinophils) system which ge nerated this result tra nsmitted reference range : <=4.0. The reference r leo was not used to int erpret this result as normal/abnormal . [facility]anoWeblgtdUVWPFJWQEC5425-42-83 04:28:00 Test Item Value Reference Range Interpretation Comments Lymphocytes (test code = Lymphocytes) 20.0 20.0-40.0 N [facility]anoQwxwtcgBRYJWKLOWA8988-45-37 04:28:00 Test Item Value Reference Range Interpretation Comments Basophils # (test code 0.0 See_Comment N [Aut omated message] The = Basophils #) system which generated this result tra nsmitted reference range : <=0.2. The reference r leo was not used to int erpret this result as normal/abnormal . [facility]anoExpddteFQVOYQWFAG3259-47-91 04:28:00 Test Item Value Reference Range Interpretation Comments Eosinophils # (test code 0.3 See_Comment N [A utomated message] The = Eosinophils #) system whic h generated this result tra nsmitted reference range : <=0.5. The reference r leo was not used to int erpret this result as normal/abnormal . [facility] AustinFhxlvklUUCNVSKHX0270-46-94 04:28:00 Test Item Value Reference Range Interpretation Comments S Preg (test code = S Negative *NA*(04/14/2013 Preg) 23:28:00) [facility] AustinKvqbnajAFGSVMKOH1740-10-77 04:28:00 Test Item Value Reference Range Interpretation Comments Lipase Lvl (test code = Lipase Lvl) 233 73-393 N [facility] AustinUqkhtqfJKXLNAERH4851-20-54 04:28:00 Test Item Value Reference Range Interpretation Comments Globulin (test code = Globulin) 4.1 2.0-4.0 H [facility] AustinCnggqqjVRJGIMPQB2984-10-59 04:28:00 Test Item Value Reference Range Interpretation Comments AGAP (test code = AGAP) 10.5 10.0-20.0 N [facility] AustinAwbhpwxKOHZTLSON0324-78-88 04:28:00 Test Item Value Reference Range Interpretation Comments B/C Ratio (test code = B/C Ratio) 6 6-25 N [facility] AustinGjfytojCTVCEFVFU8900-51-57 04:28:00 Test Item Value Reference Range Interpretation Comments A/G Ratio (test code = A/G Ratio) 0.7 0.7-1.6 N [facility] AustinBzgsubsPFBONWESI6063-14-88 04:28:00 Test Item Value Reference Range Interpretation Comments eGFR (test code = eGFR) 130 [facility] AustinTmxssvyTNWHRWVOV2313-51-15 04:28:00 Test Item Value Reference Range Interpretation Comments Albumin Lvl (test code = Albumin Lvl) 2.9 3.5-5.0 L [facility] AustinBkmkstqCEOOBSNJS9204-11-78 04:28:00 Test Item Value Reference Range Interpretation Comments ASPARTATE TRANSAMINASE 20 See_Comment N [Aut omated message] (test code = ASPARTATE The s ystem which TRANSAMINASE) generated this result transmitted ref erence range: <=37. Th e reference range was not used to interpr et this result as normal/abnormal . [facility] AustinTxyfzcpKNFCAYYXL1959-52-03 04:28:00 Test Item Value Reference Range Interpretation Comments Bili Total (test code = Bili Total) 0.5 0.2-1.3 N [facility] AustinXvuqzkvFMXRRCRCI6201-68-86 04:28:00 Test Item Value Reference Range Interpretation Comments Alk Phos (test code = Alk Phos) 89 39-136 N [facility] AustinVmaozmzGBLADKKKN2462-96-25 04:28:00 Test Item Value Reference Range Interpretation Comments ALANINE AMINOTRANSFERASE 11 See_Comment N [A utomated message] (test code = ALANINE The sys tem which AMINOTRANSFERASE) generated this result transmitted ref erence range: <=65. Th e reference range was not used to int erpret this result as normal/abnormal . [facility] AustinOdxmvdqIZTQIRPFV9644-84-46 04:28:00 Test Item Value Reference Range Interpretation Comments Creatinine Lvl (test code = Creatinine 0.5 0.5-1.4 N Lvl) [facility] AustinXvxrlzmPXVXUKIOH1094-26-43 04:28:00 Test Item Value Reference Range Interpretation Comments BUN (test code = BUN) 3 7-22 L [facility] AustinTonbgycRYPVLJPXY2591-24-25 04:28:00 Test Item Value Reference Range Interpretation Comments Glucose Lvl (test code = Glucose Lvl) 255 70-99 H [facility] AustinOxqurqeNUORLIDZO6871-59-29 04:28:00 Test Item Value Reference Range Interpretation Comments Total Protein (test code = Total 7.0 6.4-8.4 N Protein) [facility] AustinVpntjrsHPGQTSKYK9815-10-92 04:28:00 Test Item Value Reference Range Interpretation Comments Calcium Lvl (test code = Calcium Lvl) 8.7 8.5-10.5 N [facility] AustinLwsaegtJQYNUGWAR5486-26-84 04:28:00 Test Item Value Reference Range Interpretation Comments CO2 (test code = CO2) 29 24-32 N [facility] AustinWkifxzjVUECVFKXJ0301-19-11 04:28:00 Test Item Value Reference Range Interpretation Comments Chloride Lvl (test code = Chloride Lvl) 104 95-109 N [facility] AustinYzuprwoOLJKOKAYX2294-64-82 04:28:00 Test Item Value Reference Range Interpretation Comments Potassium Lvl (test code = Potassium 3.5 3.5-5.1 N Lvl) [facility] AustinYvyspbdDEIROKILZ6272-48-01 04:28:00 Test Item Value Reference Range Interpretation Comments Sodium Lvl (test code = Sodium Lvl) 140 135-145 N [facility]anoQztwxhyUPTNWFXWUA8746-02-69 04:28:00 Test Item Value Reference Range Interpretation Comments PROTIME (test code = PROTIME) 12.1 s 12.0-14.7 N [facility]anoHgdcgseANVPOPBIPX3253-28-24 04:28:00 Test Item Value Reference Range Interpretation Comments aPTT (test code = aPTT) 39.0 s 22.9-35.8 H [facility] [place]anoPotbaguANLNQHHSMI4221-63-23 04:28:00 Test Item Value Reference Range Interpretation Comments INR (test code = INR) 0.90 0.85-1.17 N [facility]anoLvoewayVMLIXQRHPM7146-93-75 04:28:00 Test Item Value Reference Range Interpretation Comments MCH (test code = MCH) 29.4 pg 27.0-31.0 N [facility]anoTcihqgaIUKRWCKLBB1128-32-01 04:28:00 Test Item Value Reference Range Interpretation Comments MCV (test code = MCV) 86.1 81.0-99.0 N [facility]anoCzwwdzzJPABBKZPSB0563-44-64 04:28:00 Test Item Value Reference Range Interpretation Comments Hct (test code = Hct) 29.4 36.0-48.0 L [facility]anoKfvqukzVEVOITTOKS2171-65-35 04:28:00 Test Item Value Reference Range Interpretation Comments RDW (test code = RDW) 14.0 11.5-14.5 N [facility]anoVnvxfeyGERSFVFOBV1342-21-89 04:28:00 Test Item Value Reference Range Interpretation Comments WBC X 10x3 (test code = WBC X 10x3) 6.2 3.7-10.4 N [facility] PlanoZmdehgaKYHJLTIIWQ0469-55-24 04:28:00 Test Item Value Reference Range Interpretation Comments Platelet (test code = Platelet) 178 133-450 N [facility]anoCoqwqeiLKVNKYQILD9315-52-91 04:28:00 Test Item Value Reference Range Interpretation Comments MCHC (test code = MCHC) 34.1 32.0-36.0 N [facility]anoVreyinlJDKZSVCOGE2998-38-87 04:28:00 Test Item Value Reference Range Interpretation Comments RBC X 10x6 (test code = RBC X 10x6) 3.41 4.20-5.40 L [facility]anoVpnjhntXAHLGTMAEX0551-30-17 04:28:00 Test Item Value Reference Range Interpretation Comments Hgb (test code = Hgb) 10.0 12.0-16.0 L [facility]anoYyekyrnBHPELADHNZ2270-16-52 04:28:00 Test Item Value Reference Range Interpretation Comments MPV (test code = MPV) 10.1 7.4-10.4 N [facility]anoYoocxqdOPNSKIYQLE5533-76-95 04:28:00 Test Item Value Reference Range Interpretation Comments Segs-Bands # (test code = Segs-Bands #) 4.4 1.5-8.1 N [facility]anoLhpopnkFCNWNGZYTV2298-81-23 04:28:00 Test Item Value Reference Range Interpretation Comments Basophils (test code = 0.7 See_Comment N [Aut omated message] The Basophils) system which ge nerated this result tra nsmitted reference range : <=1.0. The reference r leo was not used to int erpret this result as normal/abnormal . [facility]anoMkbpvmxNXSSZZBTFQ1592-56-53 04:28:00 Test Item Value Reference Range Interpretation Comments Segs (test code = Segs) 70.7 45.0-75.0 N [facility]anoKjbzcjbCPWPOEBDHC3100-92-57 04:28:00 Test Item Value Reference Range Interpretation Comments Monocytes # (test code 0.3 See_Comment N [Aut omated message] The = Monocytes #) system which generated this result tra nsmitted reference range : <=0.8. The reference r leo was not used to int erpret this result as normal/abnormal . [facility] PlanoBqewhyaAUERNFBAES3237-16-82 04:28:00 Test Item Value Reference Range Interpretation Comments Lymphocytes # (test code = Lymphocytes 1.2 1.0-5.5 N #) [facility]anoXthsahyVXFCRIKZZN3190-76-35 04:28:00 Test Item Value Reference Range Interpretation Comments Monocytes (test code = Monocytes) 4.5 2.0-12.0 N [facility]anoTgzviveYQDKQIIYAY3368-36-37 04:28:00 Test Item Value Reference Range Interpretation Comments Eosinophils (test code = 4.1 See_Comment H [A utomated message] The Eosinophils) system which ge nerated this result tra nsmitted reference range : <=4.0. The reference r leo was not used to int erpret this result as normal/abnormal . [facility]anoWtmdguhSTPBLOAWGO3421-11-88 04:28:00 Test Item Value Reference Range Interpretation Comments Lymphocytes (test code = Lymphocytes) 20.0 20.0-40.0 N [facility]anoGiqqdhlIAPAWASOUZ9005-75-52 04:28:00 Test Item Value Reference Range Interpretation Comments Basophils # (test code 0.0 See_Comment N [Aut omated message] The = Basophils #) system which generated this result tra nsmitted reference range : <=0.2. The reference r leo was not used to int erpret this result as normal/abnormal . [facility]anoQptgckhEJCCXLXJZQ7733-69-95 04:28:00 Test Item Value Reference Range Interpretation Comments Eosinophils # (test code 0.3 See_Comment N [A utomated message] The = Eosinophils #) system whic h generated this result tra nsmitted reference range : <=0.5. The reference r leo was not used to int erpret this result as normal/abnormal . [facility] AustinUiwrbveHOUKSECHK5336-92-78 04:28:00 Test Item Value Reference Range Interpretation Comments S Preg (test code = S Negative *NA*(04/14/2013 Preg) 23:28:00) [facility] AustinFxsbejoPAVEULGJQ4551-55-97 04:28:00 Test Item Value Reference Range Interpretation Comments Lipase Lvl (test code = Lipase Lvl) 233 73-393 N [facility] AustinFgsqugrSDFFQNBNE2678-35-88 04:28:00 Test Item Value Reference Range Interpretation Comments Globulin (test code = Globulin) 4.1 2.0-4.0 H [facility] AustinLrnxircGOWMLGYAE4556-36-10 04:28:00 Test Item Value Reference Range Interpretation Comments AGAP (test code = AGAP) 10.5 10.0-20.0 N [facility] AustinEbpiahmJAMDHEUHN9723-00-64 04:28:00 Test Item Value Reference Range Interpretation Comments B/C Ratio (test code = B/C Ratio) 6 6-25 N [facility] AustinFlpykiaZLLIEFKOJ9378-06-37 04:28:00 Test Item Value Reference Range Interpretation Comments A/G Ratio (test code = A/G Ratio) 0.7 0.7-1.6 N [facility] AustinEfagyujQRKELKPMX7384-81-04 04:28:00 Test Item Value Reference Range Interpretation Comments eGFR (test code = eGFR) 130 [facility] AustinGzfqybjFDNDRVDYB2587-13-37 04:28:00 Test Item Value Reference Range Interpretation Comments Albumin Lvl (test code = Albumin Lvl) 2.9 3.5-5.0 L [facility] AustinCsizpkjZGDZKTRKT5047-20-91 04:28:00 Test Item Value Reference Range Interpretation Comments ASPARTATE TRANSAMINASE 20 See_Comment N [Aut omated message] (test code = ASPARTATE The s ystem which TRANSAMINASE) generated this result transmitted ref erence range: <=37. Th e reference range was not used to interpr et this result as normal/abnormal . [facility] AustinDyahadsNWTGYUTJA2084-46-38 04:28:00 Test Item Value Reference Range Interpretation Comments Bili Total (test code = Bili Total) 0.5 0.2-1.3 N [facility] AustinDprdjxtGBWLNFHBB9310-11-07 04:28:00 Test Item Value Reference Range Interpretation Comments Alk Phos (test code = Alk Phos) 89 39-136 N [facility] AustinEdxnbcbIMJWDMZNT4335-65-29 04:28:00 Test Item Value Reference Range Interpretation Comments ALANINE AMINOTRANSFERASE 11 See_Comment N [A utomated message] (test code = ALANINE The sys tem which AMINOTRANSFERASE) generated this result transmitted ref erence range: <=65. Th e reference range was not used to int erpret this result as normal/abnormal . [facility] AustinNvvssaaRCLSEUHUK3299-04-46 04:28:00 Test Item Value Reference Range Interpretation Comments Creatinine Lvl (test code = Creatinine 0.5 0.5-1.4 N Lvl) [facility] AustinXbntjsiPSUPXCMZY6747-24-91 04:28:00 Test Item Value Reference Range Interpretation Comments BUN (test code = BUN) 3 7-22 L [facility] AustinHbrtxdiCTUQYQAIM1525-82-11 04:28:00 Test Item Value Reference Range Interpretation Comments Glucose Lvl (test code = Glucose Lvl) 255 70-99 H [facility] AustinQyioailBOHWJUOFC2109-58-14 04:28:00 Test Item Value Reference Range Interpretation Comments Total Protein (test code = Total 7.0 6.4-8.4 N Protein) [facility] AustinZalanlzGKIZHCCNL6947-90-37 04:28:00 Test Item Value Reference Range Interpretation Comments Calcium Lvl (test code = Calcium Lvl) 8.7 8.5-10.5 N [facility] AustinOwgtopjVZAPKVQKC6877-85-63 04:28:00 Test Item Value Reference Range Interpretation Comments CO2 (test code = CO2) 29 24-32 N [facility] AustinGfpuyieVAVJVCJRN9253-17-82 04:28:00 Test Item Value Reference Range Interpretation Comments Chloride Lvl (test code = Chloride Lvl) 104 95-109 N [facility] AustinTbvuztkEREUVSGSB0259-14-76 04:28:00 Test Item Value Reference Range Interpretation Comments Potassium Lvl (test code = Potassium 3.5 3.5-5.1 N Lvl) [facility] AustinCxgphetMEKCTZAZB1248-36-14 04:28:00 Test Item Value Reference Range Interpretation Comments Sodium Lvl (test code = Sodium Lvl) 140 135-145 N [facility]anoKuvzqzoNDBESSNJLA3473-93-59 04:28:00 Test Item Value Reference Range Interpretation Comments PROTIME (test code = PROTIME) 12.1 s 12.0-14.7 N [facility]anoBbyrfgkEPFLPDUALZ2215-41-48 04:28:00 Test Item Value Reference Range Interpretation Comments aPTT (test code = aPTT) 39.0 s 22.9-35.8 H [facility]anoTqzjirnLMSYHABBUT6285-39-40 04:28:00 Test Item Value Reference Range Interpretation Comments INR (test code = INR) 0.90 0.85-1.17 N [facility]anoMkibpaxONJCLVQIBC0182-27-33 04:28:00 Test Item Value Reference Range Interpretation Comments MCH (test code = MCH) 29.4 pg 27.0-31.0 N [facility]anoVsxdjbbFUGDGVLEBL4949-84-44 04:28:00 Test Item Value Reference Range Interpretation Comments MCV (test code = MCV) 86.1 81.0-99.0 N [facility] PlanoHtyexlrHTEQFDGLOJ7898-83-21 04:28:00 Test Item Value Reference Range Interpretation Comments Hct (test code = Hct) 29.4 36.0-48.0 L [facility]anoSrotnepZDOPIQCYAC1408-21-18 04:28:00 Test Item Value Reference Range Interpretation Comments RDW (test code = RDW) 14.0 11.5-14.5 N [facility]anoOxddypzNODCMJTJRM3756-91-03 04:28:00 Test Item Value Reference Range Interpretation Comments WBC X 10x3 (test code = WBC X 10x3) 6.2 3.7-10.4 N [facility]anoLswxhcaCFUHBBOIMM8613-62-11 04:28:00 Test Item Value Reference Range Interpretation Comments Platelet (test code = Platelet) 178 133-450 N [facility]anoTdfwuueKUAJVNKXOO0234-02-85 04:28:00 Test Item Value Reference Range Interpretation Comments MCHC (test code = MCHC) 34.1 32.0-36.0 N [facility]anoCpyisplXLJAYFINDV8627-33-27 04:28:00 Test Item Value Reference Range Interpretation Comments RBC X 10x6 (test code = RBC X 10x6) 3.41 4.20-5.40 L [facility]anoMisevytZDBHEHRFDW2264-92-29 04:28:00 Test Item Value Reference Range Interpretation Comments Hgb (test code = Hgb) 10.0 12.0-16.0 L [facility]anoMiiljqdFBOSRPITXM7467-81-84 04:28:00 Test Item Value Reference Range Interpretation Comments MPV (test code = MPV) 10.1 7.4-10.4 N [facility] PlanoZfpdaeyVSTKALUHHY4642-26-49 04:28:00 Test Item Value Reference Range Interpretation Comments Segs-Bands # (test code = Segs-Bands #) 4.4 1.5-8.1 N [facility]anoEixodmgIZNPOWDAXW5603-38-22 04:28:00 Test Item Value Reference Range Interpretation Comments Basophils (test code = 0.7 See_Comment N [Aut omated message] The Basophils) system which ge nerated this result tra nsmitted reference range : <=1.0. The reference r leo was not used to int erpret this result as normal/abnormal . [facility]anoXcwpvweZAWKLDTKCY3048-82-63 04:28:00 Test Item Value Reference Range Interpretation Comments Segs (test code = Segs) 70.7 45.0-75.0 N [facility]anoEilgdgiVJLAUOEEJN8379-73-29 04:28:00 Test Item Value Reference Range Interpretation Comments Monocytes # (test code 0.3 See_Comment N [Aut omated message] The = Monocytes #) system which generated this result tra nsmitted reference range : <=0.8. The reference r leo was not used to int erpret this result as normal/abnormal . [facility]anoMelzrekCDYOCJDTFI7130-38-33 04:28:00 Test Item Value Reference Range Interpretation Comments Lymphocytes # (test code = Lymphocytes 1.2 1.0-5.5 N #) [facility]anoBabivpqSEFUSMALBI2467-97-56 04:28:00 Test Item Value Reference Range Interpretation Comments Monocytes (test code = Monocytes) 4.5 2.0-12.0 N [facility] PlanoEqeaipnJGZKQNGDER7371-02-27 04:28:00 Test Item Value Reference Range Interpretation Comments Eosinophils (test code = 4.1 See_Comment H [A utomated message] The Eosinophils) system which ge nerated this result tra nsmitted reference range : <=4.0. The reference r leo was not used to int erpret this result as normal/abnormal . [facility]anoMkdizryJPKOJKOWUS6840-07-45 04:28:00 Test Item Value Reference Range Interpretation Comments Lymphocytes (test code = Lymphocytes) 20.0 20.0-40.0 N [facility]anoEpqzqqnYJZVEVOVSE5917-66-56 04:28:00 Test Item Value Reference Range Interpretation Comments Basophils # (test code 0.0 See_Comment N [Aut omated message] The = Basophils #) system which generated this result tra nsmitted reference range : <=0.2. The reference r leo was not used to int erpret this result as normal/abnormal . [facility] PlanoWnaxuptPVYEYXMBPT2168-91-57 04:28:00 Test Item Value Reference Range Interpretation Comments Eosinophils # (test code 0.3 See_Comment N [A utomated message] The = Eosinophils #) system whic h generated this result tra nsmitted reference range : <=0.5. The reference r leo was not used to int erpret this result as normal/abnormal . [facility] AustinRpnxtmnJOOSGFPWC7330-30-42 04:28:00 Test Item Value Reference Range Interpretation Comments S Preg (test code = S Negative *NA*(04/14/2013 Preg) 23:28:00) [facility] AustinHwkmpieQMMFNKOCE1886-25-49 04:28:00 Test Item Value Reference Range Interpretation Comments Lipase Lvl (test code = Lipase Lvl) 233 73-393 N [facility] AustinZskzokcKXZHXGFRW1540-50-68 04:28:00 Test Item Value Reference Range Interpretation Comments Globulin (test code = Globulin) 4.1 2.0-4.0 H [facility] [facility]QuzkmycMMMQIRAIS5292-64-61 04:28:00 Test Item Value Reference Range Interpretation Comments AGAP (test code = AGAP) 10.5 10.0-20.0 N [facility] AustinCrqxonrGUVYDBZQZ1441-36-92 04:28:00 Test Item Value Reference Range Interpretation Comments B/C Ratio (test code = B/C Ratio) 6 6-25 N [facility] AustinCbqwkhoWDPARQPCB1622-86-13 04:28:00 Test Item Value Reference Range Interpretation Comments A/G Ratio (test code = A/G Ratio) 0.7 0.7-1.6 N [facility] AustinDfdvwxsOFHUHMMNA3965-11-28 04:28:00 Test Item Value Reference Range Interpretation Comments eGFR (test code = eGFR) 130 [facility] AustinOkdbajrHMYLEQESQ6130-70-52 04:28:00 Test Item Value Reference Range Interpretation Comments Albumin Lvl (test code = Albumin Lvl) 2.9 3.5-5.0 L [facility] AustinGtradlwEUXETBFAF9961-02-82 04:28:00 Test Item Value Reference Range Interpretation Comments ASPARTATE TRANSAMINASE 20 See_Comment N [Aut omated message] (test code = ASPARTATE The s ystem which TRANSAMINASE) generated this result transmitted ref erence range: <=37. Th e reference range was not used to interpr et this result as normal/abnormal . [facility] AustinFxasgoqTFMWFGGYI6130-75-79 04:28:00 Test Item Value Reference Range Interpretation Comments Bili Total (test code = Bili Total) 0.5 0.2-1.3 N [facility] AustinRfjskesRTTTLDDHQ6582-26-06 04:28:00 Test Item Value Reference Range Interpretation Comments Alk Phos (test code = Alk Phos) 89 39-136 N [facility] AustinAecwadbOJLQPHYJO2044-15-73 04:28:00 Test Item Value Reference Range Interpretation Comments ALANINE AMINOTRANSFERASE 11 See_Comment N [A utomated message] (test code = ALANINE The sys tem which AMINOTRANSFERASE) generated this result transmitted ref erence range: <=65. Th e reference range was not used to int erpret this result as normal/abnormal . [facility] AustinWopgigxDOSLRXOPJ3318-01-84 04:28:00 Test Item Value Reference Range Interpretation Comments Creatinine Lvl (test code = Creatinine 0.5 0.5-1.4 N Lvl) [facility] AustinHwbfrdhUYCMZNKHI3225-37-81 04:28:00 Test Item Value Reference Range Interpretation Comments BUN (test code = BUN) 3 7-22 L [facility] AustinJglsowhNZQIIKIPQ1010-06-18 04:28:00 Test Item Value Reference Range Interpretation Comments Glucose Lvl (test code = Glucose Lvl) 255 70-99 H [facility] AustinSkjyivqVKQCCNNKC3131-04-79 04:28:00 Test Item Value Reference Range Interpretation Comments Total Protein (test code = Total 7.0 6.4-8.4 N Protein) [facility] AustinBxgsxxlDKOAYQWNR0662-17-70 04:28:00 Test Item Value Reference Range Interpretation Comments Calcium Lvl (test code = Calcium Lvl) 8.7 8.5-10.5 N [facility] AustinEzarpmkAKQKIDNYX6522-91-90 04:28:00 Test Item Value Reference Range Interpretation Comments CO2 (test code = CO2) 29 24-32 N [facility] AustinKysmzsuEUAIFNTRL6447-04-59 04:28:00 Test Item Value Reference Range Interpretation Comments Chloride Lvl (test code = Chloride Lvl) 104 95-109 N [facility] AustinPpoumfcMIQUGQVNZ0964-45-38 04:28:00 Test Item Value Reference Range Interpretation Comments Potassium Lvl (test code = Potassium 3.5 3.5-5.1 N Lvl) [facility] AustinGiwnkovVWKDUVUEC6401-96-88 04:28:00 Test Item Value Reference Range Interpretation Comments Sodium Lvl (test code = Sodium Lvl) 140 135-145 N [facility]KfcbwgyCPEZISYULK4537-02-92 04:28:00 Test Item Value Reference Range Interpretation Comments PROTIME (test code = PROTIME) 12.1 s 12.0-14.7 N [facility]anoDfzivskEJFMJTGWIU2086-04-35 04:28:00 Test Item Value Reference Range Interpretation Comments aPTT (test code = aPTT) 39.0 s 22.9-35.8 H [facility]anoQesckplRMYYZFFOPC0230-03-54 04:28:00 Test Item Value Reference Range Interpretation Comments INR (test code = INR) 0.90 0.85-1.17 N [facility]anoXjwilvtSBIJPHJZRO4779-59-66 04:28:00 Test Item Value Reference Range Interpretation Comments MCH (test code = MCH) 29.4 pg 27.0-31.0 N [facility]anoGtqjaqdXPYXUROYYS6998-03-13 04:28:00 Test Item Value Reference Range Interpretation Comments MCV (test code = MCV) 86.1 81.0-99.0 N [facility]anoQmgeccdZYDXNZAGNB5409-49-82 04:28:00 Test Item Value Reference Range Interpretation Comments Hct (test code = Hct) 29.4 36.0-48.0 L [facility]anoZhjmmryCKNQRBECTM7515-36-08 04:28:00 Test Item Value Reference Range Interpretation Comments RDW (test code = RDW) 14.0 11.5-14.5 N [facility]anoEvktliwXLKZUJCOPG8999-39-12 04:28:00 Test Item Value Reference Range Interpretation Comments WBC X 10x3 (test code = WBC X 10x3) 6.2 3.7-10.4 N [facility]anoCnsknrcUKFMCIPQVA5416-31-18 04:28:00 Test Item Value Reference Range Interpretation Comments Platelet (test code = Platelet) 178 133-450 N [facility]anoKhbishrUMRNZAEFWC4216-85-81 04:28:00 Test Item Value Reference Range Interpretation Comments MCHC (test code = MCHC) 34.1 32.0-36.0 N [facility]anoWomxrhsSYKRSJRPMQ8481-54-25 04:28:00 Test Item Value Reference Range Interpretation Comments RBC X 10x6 (test code = RBC X 10x6) 3.41 4.20-5.40 L [facility]anoMvasjodCENGVJLCKB4644-78-54 04:28:00 Test Item Value Reference Range Interpretation Comments Hgb (test code = Hgb) 10.0 12.0-16.0 L [facility]anoXnokgpmJRPUBEJRIU6502-86-88 04:28:00 Test Item Value Reference Range Interpretation Comments MPV (test code = MPV) 10.1 7.4-10.4 N [facility]anoBgwzglxTGKQYTNEQO6754-78-73 04:28:00 Test Item Value Reference Range Interpretation Comments Segs-Bands # (test code = Segs-Bands #) 4.4 1.5-8.1 N [facility]anoJzkaxmnKIZUSQJOJL0060-52-07 04:28:00 Test Item Value Reference Range Interpretation Comments Basophils (test code = 0.7 See_Comment N [Aut omated message] The Basophils) system which ge nerated this result tra nsmitted reference range : <=1.0. The reference r leo was not used to int erpret this result as normal/abnormal . [facility]anoLsexmnjTTFRPIRERV8294-93-20 04:28:00 Test Item Value Reference Range Interpretation Comments Segs (test code = Segs) 70.7 45.0-75.0 N [facility]anoYuczdzqNLAXUMWUXN3556-42-74 04:28:00 Test Item Value Reference Range Interpretation Comments Monocytes # (test code 0.3 See_Comment N [Aut omated message] The = Monocytes #) system which generated this result tra nsmitted reference range : <=0.8. The reference r leo was not used to int erpret this result as normal/abnormal . [facility]anoCxyndysWSOKMGLJJF8635-45-63 04:28:00 Test Item Value Reference Range Interpretation Comments Lymphocytes # (test code = Lymphocytes 1.2 1.0-5.5 N #) [facility]anoDplxhkzVHHCKARVPM6187-83-29 04:28:00 Test Item Value Reference Range Interpretation Comments Monocytes (test code = Monocytes) 4.5 2.0-12.0 N [facility]anoTptxphsBFFSOIDKSD3444-22-89 04:28:00 Test Item Value Reference Range Interpretation Comments Eosinophils (test code = 4.1 See_Comment H [A utomated message] The Eosinophils) system which ge nerated this result tra nsmitted reference range : <=4.0. The reference r leo was not used to int erpret this result as normal/abnormal . [facility]anoPrlhhscXZQLNEZDKT7236-67-75 04:28:00 Test Item Value Reference Range Interpretation Comments Lymphocytes (test code = Lymphocytes) 20.0 20.0-40.0 N [facility]anoJmepmylGSRZGBITGK7254-43-32 04:28:00 Test Item Value Reference Range Interpretation Comments Basophils # (test code 0.0 See_Comment N [Aut omated message] The = Basophils #) system which generated this result tra nsmitted reference range : <=0.2. The reference r leo was not used to int erpret this result as normal/abnormal . [facility]anoDhltauwXRJTBLZUAH1662-19-54 04:28:00 Test Item Value Reference Range Interpretation Comments Eosinophils # (test code 0.3 See_Comment N [A utomated message] The = Eosinophils #) system whic h generated this result tra nsmitted reference range : <=0.5. The reference r leo was not used to int erpret this result as normal/abnormal . [facility] AustinPjscgrmGFITMBERL3899-81-30 04:28:00 Test Item Value Reference Range Interpretation Comments S Preg (test code = S Negative *NA*(04/14/2013 Preg) 23:28:00) [facility] AustinPcgtfzoODHZFVLLB6745-13-58 04:28:00 Test Item Value Reference Range Interpretation Comments Lipase Lvl (test code = Lipase Lvl) 233 73-393 N [facility] AustinFhwuhdrTJWXLJPHP0578-28-58 04:28:00 Test Item Value Reference Range Interpretation Comments Globulin (test code = Globulin) 4.1 2.0-4.0 H [facility] AustinZnrdtdqAZEJYPJTA1402-77-73 04:28:00 Test Item Value Reference Range Interpretation Comments AGAP (test code = AGAP) 10.5 10.0-20.0 N [facility] AustinFwgggsjDOIMHPANX7828-90-78 04:28:00 Test Item Value Reference Range Interpretation Comments B/C Ratio (test code = B/C Ratio) 6 6-25 N [facility] AustinKhvfzpxVTHSRHOLZ2348-57-66 04:28:00 Test Item Value Reference Range Interpretation Comments A/G Ratio (test code = A/G Ratio) 0.7 0.7-1.6 N [facility] AustinHthdwswMKCQWVNSW9225-98-89 04:28:00 Test Item Value Reference Range Interpretation Comments eGFR (test code = eGFR) 130 [facility] AustinWqrmwfrVUPVVRLER6789-76-82 04:28:00 Test Item Value Reference Range Interpretation Comments Albumin Lvl (test code = Albumin Lvl) 2.9 3.5-5.0 L [facility] AustinBnvjklxKYRDESVOG6695-50-29 04:28:00 Test Item Value Reference Range Interpretation Comments ASPARTATE TRANSAMINASE 20 See_Comment N [Aut omated message] (test code = ASPARTATE The s ystem which TRANSAMINASE) generated this result transmitted ref erence range: <=37. Th e reference range was not used to interpr et this result as normal/abnormal . [facility] AustinGlbilmtEUJDJIUOL5006-52-54 04:28:00 Test Item Value Reference Range Interpretation Comments Bili Total (test code = Bili Total) 0.5 0.2-1.3 N [facility] AustinLrieggmMLROQDALH6015-14-50 04:28:00 Test Item Value Reference Range Interpretation Comments Alk Phos (test code = Alk Phos) 89 39-136 N [facility] AustinBfpxgocEUDWCWFHZ2102-10-08 04:28:00 Test Item Value Reference Range Interpretation Comments ALANINE AMINOTRANSFERASE 11 See_Comment N [A utomated message] (test code = ALANINE The sys tem which AMINOTRANSFERASE) generated this result transmitted ref erence range: <=65. Th e reference range was not used to int erpret this result as normal/abnormal . [facility] AustinQepbhztOJSZEVIYK5666-61-48 04:28:00 Test Item Value Reference Range Interpretation Comments Creatinine Lvl (test code = Creatinine 0.5 0.5-1.4 N Lvl) [facility] AustinWnypsiuMDZUQRCRA5558-57-49 04:28:00 Test Item Value Reference Range Interpretation Comments BUN (test code = BUN) 3 7-22 L [facility] AustinGhtmddfLMTKRJUHW4801-83-78 04:28:00 Test Item Value Reference Range Interpretation Comments Glucose Lvl (test code = Glucose Lvl) 255 70-99 H [facility] AustinTaiclpvQLXFQKTHB9634-58-65 04:28:00 Test Item Value Reference Range Interpretation Comments Total Protein (test code = Total 7.0 6.4-8.4 N Protein) [facility] AustinOzlykqyXFTKLUEBD7193-40-90 04:28:00 Test Item Value Reference Range Interpretation Comments Calcium Lvl (test code = Calcium Lvl) 8.7 8.5-10.5 N [facility] AustinNqqwadfSCEGXCKRS8847-54-79 04:28:00 Test Item Value Reference Range Interpretation Comments CO2 (test code = CO2) 29 24-32 N [facility] AustinXeurahhLPZLGKCTG8527-15-21 04:28:00 Test Item Value Reference Range Interpretation Comments Chloride Lvl (test code = Chloride Lvl) 104 95-109 N [facility] AustinIcfkmxpTXNNGPELP6910-18-02 04:28:00 Test Item Value Reference Range Interpretation Comments Potassium Lvl (test code = Potassium 3.5 3.5-5.1 N Lvl) [facility] AustinDhuwgnkVQCHITZKI4187-61-30 04:28:00 Test Item Value Reference Range Interpretation Comments Sodium Lvl (test code = Sodium Lvl) 140 135-145 N [facility]anoDgbtpoyVBRMCMWVMY7128-93-25 04:28:00 Test Item Value Reference Range Interpretation Comments PROTIME (test code = PROTIME) 12.1 s 12.0-14.7 N [facility]anoGacjrtbSVJRACADHT9944-51-25 04:28:00 Test Item Value Reference Range Interpretation Comments aPTT (test code = aPTT) 39.0 s 22.9-35.8 H [facility]anoIdwtalyHKYOZVMBZA2401-12-92 04:28:00 Test Item Value Reference Range Interpretation Comments INR (test code = INR) 0.90 0.85-1.17 N [facility]anoPjyjlytXBPNSJJUQI8537-47-95 04:28:00 Test Item Value Reference Range Interpretation Comments MCH (test code = MCH) 29.4 pg 27.0-31.0 N [facility]anoOiwmujrYEGCAQFUUL3567-53-72 04:28:00 Test Item Value Reference Range Interpretation Comments MCV (test code = MCV) 86.1 81.0-99.0 N [facility]anoXrzqgedKMQITIKQUV8234-27-63 04:28:00 Test Item Value Reference Range Interpretation Comments Hct (test code = Hct) 29.4 36.0-48.0 L [facility]anoOqkblryUSCJPOHELE8112-88-38 04:28:00 Test Item Value Reference Range Interpretation Comments RDW (test code = RDW) 14.0 11.5-14.5 N [facility]anoRjqzjycMBXDOZMZUD7702-68-30 04:28:00 Test Item Value Reference Range Interpretation Comments WBC X 10x3 (test code = WBC X 10x3) 6.2 3.7-10.4 N [facility] PlanoModerinPVRWQVWEUG3530-70-37 04:28:00 Test Item Value Reference Range Interpretation Comments Platelet (test code = Platelet) 178 133-450 N [facility]anoUgszbvwDACIKXXLNB0707-78-47 04:28:00 Test Item Value Reference Range Interpretation Comments MCHC (test code = MCHC) 34.1 32.0-36.0 N [facility]anoHmhxtcaVLMFFWWQXU2298-85-94 04:28:00 Test Item Value Reference Range Interpretation Comments RBC X 10x6 (test code = RBC X 10x6) 3.41 4.20-5.40 L [facility]anoPaeoqmeRKOYZJJKAF1210-30-12 04:28:00 Test Item Value Reference Range Interpretation Comments Hgb (test code = Hgb) 10.0 12.0-16.0 L [facility]anoRecxxgxFDMVLBGDUA8545-74-87 04:28:00 Test Item Value Reference Range Interpretation Comments MPV (test code = MPV) 10.1 7.4-10.4 N [facility]anoKwppngvWXBROJPZMR4033-22-30 04:28:00 Test Item Value Reference Range Interpretation Comments Segs-Bands # (test code = Segs-Bands #) 4.4 1.5-8.1 N [facility]anoZzvgbeoSIIQKVBSYG4585-30-68 04:28:00 Test Item Value Reference Range Interpretation Comments Basophils (test code = 0.7 See_Comment N [Aut omated message] The Basophils) system which ge nerated this result tra nsmitted reference range : <=1.0. The reference r leo was not used to int erpret this result as normal/abnormal . [facility]anoJmkvcqpUOUOCAMLOF5331-29-37 04:28:00 Test Item Value Reference Range Interpretation Comments Segs (test code = Segs) 70.7 45.0-75.0 N [facility]anoJemmonzRESGFLDTYX2294-66-03 04:28:00 Test Item Value Reference Range Interpretation Comments Monocytes # (test code 0.3 See_Comment N [Aut omated message] The = Monocytes #) system which generated this result tra nsmitted reference range : <=0.8. The reference r leo was not used to int erpret this result as normal/abnormal . [facility]anoAmlbivcSCGLKKTXOI1847-47-15 04:28:00 Test Item Value Reference Range Interpretation Comments Lymphocytes # (test code = Lymphocytes 1.2 1.0-5.5 N #) [facility]anoPnzkntpCIEYHHULSC6907-92-31 04:28:00 Test Item Value Reference Range Interpretation Comments Monocytes (test code = Monocytes) 4.5 2.0-12.0 N [facility]anoYvnfyviCLZSZOIGNV7554-62-10 04:28:00 Test Item Value Reference Range Interpretation Comments Eosinophils (test code = 4.1 See_Comment H [A utomated message] The Eosinophils) system which ge nerated this result tra nsmitted reference range : <=4.0. The reference r leo was not used to int erpret this result as normal/abnormal . [facility]anoWzcrirhQMNQZWPGFZ8051-96-94 04:28:00 Test Item Value Reference Range Interpretation Comments Lymphocytes (test code = Lymphocytes) 20.0 20.0-40.0 N [facility]anoWrtvtykOXOJLZNAQS7881-29-62 04:28:00 Test Item Value Reference Range Interpretation Comments Basophils # (test code 0.0 See_Comment N [Aut omated message] The = Basophils #) system which generated this result tra nsmitted reference range : <=0.2. The reference r leo was not used to int erpret this result as normal/abnormal . [facility]anoEnfkrydGGFLDDCIQH1972-06-67 04:28:00 Test Item Value Reference Range Interpretation Comments Eosinophils # (test code 0.3 See_Comment N [A utomated message] The = Eosinophils #) system whic h generated this result tra nsmitted reference range : <=0.5. The reference r leo was not used to int erpret this result as normal/abnormal . [facility] GLUCOSE LJMTEQW1266-87-83 01:12:00 Test Item Value Reference Range Interpretation Comments Gluc POC Lifscn (test code = Gluc POC 260 70-99 H Lifscn) [facility] GLUCOSE QJAVHXD7248-87-57 01:12:00 Test Item Value Reference Range Interpretation Comments Comment1 (test code = Comment1) Notify RN/ [facility] GLUCOSE PDQCEYV3070-42-01 01:12:00 Test Item Value Reference Range Interpretation Comments Gluc POC Lifscn (test code = Gluc POC 260 70-99 H Lifscn) [facility] GLUCOSE CILQQJC2101-22-31 01:12:00 Test Item Value Reference Range Interpretation Comments Comment1 (test code = Comment1) Notify RN/ [facility] GLUCOSE TSLLNCY8818-28-00 01:12:00 Test Item Value Reference Range Interpretation Comments Gluc POC Lifscn (test code = Gluc POC 260 70-99 H Lifscn) [facility] GLUCOSE DHKIDJU2413-12-71 01:12:00 Test Item Value Reference Range Interpretation Comments Comment1 (test code = Comment1) Notify RN/ [facility] GLUCOSE KWPFBZM2062-54-72 01:12:00 Test Item Value Reference Range Interpretation Comments Gluc POC Lifscn (test code = Gluc POC 260 70-99 H Lifscn) [facility] GLUCOSE EUZAPJO2122-42-28 01:12:00 Test Item Value Reference Range Interpretation Comments Comment1 (test code = Comment1) Notify TABATHA/ [facility] GLUCOSE QLMRTMR9133-70-15 01:12:00 Test Item Value Reference Range Interpretation Comments Gluc POC Lifscn (test code = Gluc POC 260 70-99 H Lifscn) [facility] GLUCOSE BFXYWJJ3891-97-18 01:12:00 Test Item Value Reference Range Interpretation Comments Comment1 (test code = Comment1) [facility]HA[facility]WqdikiaUKZFTPPCSP1304-96-01 23:40:00 Test Item Value Reference Range Interpretation Comments UA Protein (test code = Trace A UA Protein) *ABN*(03/14/2012 18:40:00) [facility]TewcytbRWVDJNXNQY7345-96-71 23:40:00 Test Item Value Reference Range Interpretation Comments UA pH (test code = UA pH) 6.0 1 5.0-8.0 N [facility] CenterJyhzsklOOECQNLZBS8036-50-90 23:40:00 Test Item Value Reference Range Interpretation Comments UA Ketones (test code = >=80 mg/dL UA Ketones) *NA*(03/14/2012 18:40:00) [facility] CenterAhlttviKJPJTATPNO6064-45-97 23:40:00 Test Item Value Reference Range Interpretation Comments UA Glucose (test code = >=1000 mg/dL A UA Glucose) *ABN*(03/14/2012 18:40:00) [facility] CenterUsuhzniXJKETARJOW6752-19-12 23:40:00 Test Item Value Reference Range Interpretation Comments UA Blood (test code = Negative (03/14/2012 N UA Blood) 18:40:00) [facility] CenterCkkeagvHGHBZPXTPD9963-46-76 23:40:00 Test Item Value Reference Range Interpretation Comments UA Nitrite (test code Negative (03/14/2012 N = UA Nitrite) 18:40:00) [facility] CenterVkumvqaCPCGGBSFSS0901-91-01 23:40:00 Test Item Value Reference Range Interpretation Comments UA Urobilinogen (test code = UA 0.2 0.1-1.0 N Urobilinogen) [facility] CenterCxtvrsgWXHMAWGNJG1899-55-92 23:40:00 Test Item Value Reference Range Interpretation Comments UA Leuk Est (test Negative (03/14/2012 N code = UA Leuk Est) 18:40:00) [facility] TylerPnxiyafPHJKBLXTGW8840-21-37 23:40:00 Test Item Value Reference Range Interpretation Comments UA Bili (test code = Negative *NA*(03/14/2012 UA Bili) 18:40:00) [facility] TylerCrwtqglOOLQEQORWE1107-17-66 23:40:00 Test Item Value Reference Range Interpretation Comments UA Turbidity (test code = Clear (03/14/2012 N UA Turbidity) 18:40:00) [facility] TylerZdlaeueDIQFDAYJQV3442-41-54 23:40:00 Test Item Value Reference Range Interpretation Comments UA Color (test code = Yellow *NA*(03/14/2012 UA Color) 18:40:00) [facility] TylerVajuzawPPTKJIJMXO0198-95-49 23:40:00 Test Item Value Reference Range Interpretation Comments UA Spec Grav (test >=1.030 A code = UA Spec Grav) *ABN*(03/14/2012 18:40:00) [facility] TylerAcjwdziXSQALRZGZS2751-63-55 23:40:00 Test Item Value Reference Range Interpretation Comments UA Sq Epi (test code Occasional /LPF N = UA Sq Epi) (03/14/2012 18:40:00) [facility] TylerIguvhggYBIIDVRBUC6215-50-35 23:40:00 Test Item Value Reference Range Interpretation Comments UA WBC (test code = UA 3-5 /HPF (03/14/2012 N WBC) 18:40:00) [facility] TylerDtkryujBPVSBFGHST7945-62-28 23:40:00 Test Item Value Reference Range Interpretation Comments UA Bacteria (test code Occasional /HPF N = UA Bacteria) (03/14/2012 18:40:00) [facility] TylerRvflfyoWRAZNTGZHM1174-49-71 23:40:00 Test Item Value Reference Range Interpretation Comments UA Protein (test code = Trace A UA Protein) *ABN*(03/14/2012 18:40:00) [facility] TylerOmuuhdeAJPTYWFFTA0692-06-19 23:40:00 Test Item Value Reference Range Interpretation Comments UA pH (test code = UA pH) 6.0 1 5.0-8.0 N [facility] CenterIezxsacCFWXKIRQQC4234-65-21 23:40:00 Test Item Value Reference Range Interpretation Comments UA Ketones (test code = >=80 mg/dL UA Ketones) *NA*(03/14/2012 18:40:00) [facility] TylerWjdnhctQPGWFUHEXM0317-36-46 23:40:00 Test Item Value Reference Range Interpretation Comments UA Glucose (test code = >=1000 mg/dL A UA Glucose) *ABN*(03/14/2012 18:40:00) [facility] TylerUjtzypsOIEAYOKYEB3537-89-41 23:40:00 Test Item Value Reference Range Interpretation Comments UA Blood (test code = Negative (03/14/2012 N UA Blood) 18:40:00) [facility] TylerUjmlzlxJRVDVSEKZS3951-54-11 23:40:00 Test Item Value Reference Range Interpretation Comments UA Nitrite (test code Negative (03/14/2012 N = UA Nitrite) 18:40:00) [facility] TylerJujevtdUNOFPZJFPA5864-99-12 23:40:00 Test Item Value Reference Range Interpretation Comments UA Urobilinogen (test code = UA 0.2 0.1-1.0 N Urobilinogen) [facility] TylerEixfmitMQGLJEREGO2298-69-20 23:40:00 Test Item Value Reference Range Interpretation Comments UA Leuk Est (test Negative (03/14/2012 N code = UA Leuk Est) 18:40:00) [facility] TylerHouathmWSYGHQJSAO8831-88-44 23:40:00 Test Item Value Reference Range Interpretation Comments UA Bili (test code = Negative *NA*(03/14/2012 UA Bili) 18:40:00) [facility] TylerKujdyicVOAUXPCVLK4728-75-59 23:40:00 Test Item Value Reference Range Interpretation Comments UA Turbidity (test code = Clear (03/14/2012 N UA Turbidity) 18:40:00) [facility] TylerTnaoqlaRDJAGNGLCH3566-47-37 23:40:00 Test Item Value Reference Range Interpretation Comments UA Color (test code = Yellow *NA*(03/14/2012 UA Color) 18:40:00) [facility] [facility] TylerLumachoWFEQHBNTGH6001-61-86 23:40:00 Test Item Value Reference Range Interpretation Comments UA Spec Grav (test >=1.030 A code = UA Spec Grav) *ABN*(03/14/2012 18:40:00) [facility] TylerLsogewbCBGIWPCWQN4246-80-96 23:40:00 Test Item Value Reference Range Interpretation Comments UA Sq Epi (test code Occasional /LPF N = UA Sq Epi) (03/14/2012 18:40:00) [facility] TylerCyaqdevVSSJSALCED7723-52-51 23:40:00 Test Item Value Reference Range Interpretation Comments UA WBC (test code = UA 3-5 /HPF (03/14/2012 N WBC) 18:40:00) [facility]uz[facility]eqSQYIBGQBGT3994-02-11 23:40:00 Test Item Value Reference Range Interpretation Comments UA Bacteria (test code Occasional /HPF N = UA Bacteria) (03/14/2012 18:40:00) [facility] TylerTzafqbrYOQHESQLOJ2042-10-45 23:40:00 Test Item Value Reference Range Interpretation Comments UA Protein (test code = Trace A UA Protein) *ABN*(03/14/2012 18:40:00) [facility] TylerBqvhdlfXINBRBGYIR5879-29-02 23:40:00 Test Item Value Reference Range Interpretation Comments UA pH (test code = UA pH) 6.0 1 5.0-8.0 N [facility] TylerBljpafvSKLDHATDOE7516-11-88 23:40:00 Test Item Value Reference Range Interpretation Comments UA Ketones (test code = >=80 mg/dL UA Ketones) *NA*(03/14/2012 18:40:00) [facility] TylerTblpgtpVGTQSZGCQZ9255-53-70 23:40:00 Test Item Value Reference Range Interpretation Comments UA Glucose (test code = >=1000 mg/dL A UA Glucose) *ABN*(03/14/2012 18:40:00) [facility] TylerEzxryauOYPUMMQZVP8365-18-62 23:40:00 Test Item Value Reference Range Interpretation Comments UA Blood (test code = Negative (03/14/2012 N UA Blood) 18:40:00) [facility] CenterUkudcblNHJBPDCSAE7387-57-97 23:40:00 Test Item Value Reference Range Interpretation Comments UA Nitrite (test code Negative (03/14/2012 N = UA Nitrite) 18:40:00) [facility] CenterKncvmuqGVOYREKRHH0167-19-86 23:40:00 Test Item Value Reference Range Interpretation Comments UA Urobilinogen (test code = UA 0.2 0.1-1.0 N Urobilinogen) [facility] CenterNzbweyoINTVUDYQND6626-29-15 23:40:00 Test Item Value Reference Range Interpretation Comments UA Leuk Est (test Negative (03/14/2012 N code = UA Leuk Est) 18:40:00) [facility] TylerRmalkjcAIZDQWSJBU6739-19-19 23:40:00 Test Item Value Reference Range Interpretation Comments UA Bili (test code = Negative *NA*(03/14/2012 UA Bili) 18:40:00) [facility] CenterIeolafmQPBWWWBPYZ3869-23-84 23:40:00 Test Item Value Reference Range Interpretation Comments UA Turbidity (test code = Clear (03/14/2012 N UA Turbidity) 18:40:00) [facility] CenterFcciowwOOYYKLJECM7998-01-53 23:40:00 Test Item Value Reference Range Interpretation Comments UA Color (test code = Yellow *NA*(03/14/2012 UA Color) 18:40:00) [facility] TylerYffnlynNXNNRHFGVQ6839-12-73 23:40:00 Test Item Value Reference Range Interpretation Comments UA Spec Grav (test >=1.030 A code = UA Spec Grav) *ABN*(03/14/2012 18:40:00) [facility] TylerBslozrpYAVPHZEFLV2333-58-70 23:40:00 Test Item Value Reference Range Interpretation Comments UA Sq Epi (test code Occasional /LPF N = UA Sq Epi) (03/14/2012 18:40:00) [facility] TylerVekjgrvCBUKGRTTMI5393-69-73 23:40:00 Test Item Value Reference Range Interpretation Comments UA WBC (test code = UA 3-5 /HPF (03/14/2012 N WBC) 18:40:00) [facility] CenterIwpgswaJJTKQPXVWE7031-55-92 23:40:00 Test Item Value Reference Range Interpretation Comments UA Bacteria (test code Occasional /HPF N = UA Bacteria) (03/14/2012 18:40:00) [facility] CenterPufupgqZNYLHQEWTD4533-99-49 23:40:00 Test Item Value Reference Range Interpretation Comments UA Protein (test code = Trace A UA Protein) *ABN*(03/14/2012 18:40:00) [facility] CenterLiymewkLFUOOKBPQM1640-93-77 23:40:00 Test Item Value Reference Range Interpretation Comments UA pH (test code = UA pH) 6.0 1 5.0-8.0 N [facility] TylerWhgocbmXWYPNMQXEH2843-87-17 23:40:00 Test Item Value Reference Range Interpretation Comments UA Ketones (test code = >=80 mg/dL UA Ketones) *NA*(03/14/2012 18:40:00) [facility] TylerPuarnskSNXKQLDFVV0030-37-80 23:40:00 Test Item Value Reference Range Interpretation Comments UA Glucose (test code = >=1000 mg/dL A UA Glucose) *ABN*(03/14/2012 18:40:00) [facility] TylerDfqilevBGWGQKKIJL9602-26-11 23:40:00 Test Item Value Reference Range Interpretation Comments UA Blood (test code = Negative (03/14/2012 N UA Blood) 18:40:00) [facility] TylerPukrhjsVMLZPENDUP4520-08-26 23:40:00 Test Item Value Reference Range Interpretation Comments UA Nitrite (test code Negative (03/14/2012 N = UA Nitrite) 18:40:00) [facility] TylerTuzrlmgYMKDGPZTYN3139-76-99 23:40:00 Test Item Value Reference Range Interpretation Comments UA Urobilinogen (test code = UA 0.2 0.1-1.0 N Urobilinogen) [facility] TylerQdbfrjtCLTMUKWRCY8061-83-34 23:40:00 Test Item Value Reference Range Interpretation Comments UA Leuk Est (test Negative (03/14/2012 N code = UA Leuk Est) 18:40:00) [facility] TylerJrnunkwGLOYMEFFIO3317-01-68 23:40:00 Test Item Value Reference Range Interpretation Comments UA Bili (test code = Negative *NA*(03/14/2012 UA Bili) 18:40:00) [facility] TylerPzxpcypICWUWNTCGD2256-16-09 23:40:00 Test Item Value Reference Range Interpretation Comments UA Turbidity (test code = Clear (03/14/2012 N UA Turbidity) 18:40:00) [facility] TylerTvonanvSPCMKJEYPS4457-39-91 23:40:00 Test Item Value Reference Range Interpretation Comments UA Color (test code = Yellow *NA*(03/14/2012 UA Color) 18:40:00) [facility] TylerCpstkpdGFWHIXLBIQ2386-37-59 23:40:00 Test Item Value Reference Range Interpretation Comments UA Spec Grav (test >=1.030 A code = UA Spec Grav) *ABN*(03/14/2012 18:40:00) [facility] TylerMbjdmxhNHNFOEXDDA5250-07-25 23:40:00 Test Item Value Reference Range Interpretation Comments UA Sq Epi (test code Occasional /LPF N = UA Sq Epi) (03/14/2012 18:40:00) [facility] TylerQzzoxkdVSTVFFRDNQ1197-37-89 23:40:00 Test Item Value Reference Range Interpretation Comments UA WBC (test code = UA 3-5 /HPF (03/14/2012 N WBC) 18:40:00) [facility] TylerVncqpptWEMOWVWBLH8551-02-36 23:40:00 Test Item Value Reference Range Interpretation Comments UA Bacteria (test code Occasional /HPF N = UA Bacteria) (03/14/2012 18:40:00) [facility] TylerAhjjuxvUWVQBNUFND6593-95-86 23:40:00 Test Item Value Reference Range Interpretation Comments UA Protein (test code = Trace A UA Protein) *ABN*(03/14/2012 18:40:00) [facility] TylerDimttxyHBXLXWYSZQ2369-47-84 23:40:00 Test Item Value Reference Range Interpretation Comments UA pH (test code = UA pH) 6.0 1 5.0-8.0 N [facility] TylerQgtcwamIXIXXTCRXX0970-71-18 23:40:00 Test Item Value Reference Range Interpretation Comments UA Ketones (test code = >=80 mg/dL UA Ketones) *NA*(03/14/2012 18:40:00) [facility] TylerVqpfnlkABLTIUKKHY6613-76-52 23:40:00 Test Item Value Reference Range Interpretation Comments UA Glucose (test code = >=1000 mg/dL A UA Glucose) *ABN*(03/14/2012 18:40:00) [facility] TylerAtmqqjkPFNUNMKPSM4078-30-72 23:40:00 Test Item Value Reference Range Interpretation Comments UA Blood (test code = Negative (03/14/2012 N UA Blood) 18:40:00) [facility] TylerFernqjvLSGDGTSIDF5325-13-92 23:40:00 Test Item Value Reference Range Interpretation Comments UA Nitrite (test code Negative (03/14/2012 N = UA Nitrite) 18:40:00) [facility] TylerErbldcxCEWYLIEUAL6621-09-04 23:40:00 Test Item Value Reference Range Interpretation Comments UA Urobilinogen (test code = UA 0.2 0.1-1.0 N Urobilinogen) [facility]GkauhfgCQMYHYZFIJ4188-59-60 23:40:00 Test Item Value Reference Range Interpretation Comments UA Leuk Est (test Negative (03/14/2012 N code = UA Leuk Est) 18:40:00) [facility] CenterFkioqleNZWOCYAWVN7065-15-69 23:40:00 Test Item Value Reference Range Interpretation Comments UA Bili (test code = Negative *NA*(03/14/2012 UA Bili) 18:40:00) [facility] CenterXlnycxuZGREVYHKVS5550-24-02 23:40:00 Test Item Value Reference Range Interpretation Comments UA Turbidity (test code = Clear (03/14/2012 N UA Turbidity) 18:40:00) [facility] CenterSyamdkvCPSVPSDVHE7795-84-98 23:40:00 Test Item Value Reference Range Interpretation Comments UA Color (test code = Yellow *NA*(03/14/2012 UA Color) 18:40:00) [facility] CenterGugmpelUNVQFQPROR4040-29-85 23:40:00 Test Item Value Reference Range Interpretation Comments UA Spec Grav (test >=1.030 A code = UA Spec Grav) *ABN*(03/14/2012 18:40:00) [facility] CenterIbklpecIKRWDKIFID2435-65-92 23:40:00 Test Item Value Reference Range Interpretation Comments UA Sq Epi (test code Occasional /LPF N = UA Sq Epi) (03/14/2012 18:40:00) [facility] CenterUqjbbyoRNRTDBLSAO0082-87-83 23:40:00 Test Item Value Reference Range Interpretation Comments UA WBC (test code = UA 3-5 /HPF (03/14/2012 N WBC) 18:40:00) [facility] CenterKywxjogIFJLZAXWKM2236-57-48 23:40:00 Test Item Value Reference Range Interpretation Comments UA Bacteria (test code Occasional /HPF N = UA Bacteria) (03/14/2012 18:40:00) [facility] CenterRjbdhocEXZNWQAKE5066-62-76 22:50:00 Test Item Value Reference Range Interpretation Comments S Preg (test code = S Negative *NA*(03/14/2012 Preg) 17:50:00) [facility] AustinJokemjfSJOMEMXJD9563-60-63 22:50:00 Test Item Value Reference Range Interpretation Comments Lipase Lvl (test code = Lipase Lvl) 45 73-393 L [facility] AustinDomgwwuIMHURJXMU1875-06-97 22:50:00 Test Item Value Reference Range Interpretation Comments A/G Ratio (test code = A/G Ratio) 1.2 0.7-1.6 N [facility] AustinSquvrlnKYGTQUPPP0538-73-97 22:50:00 Test Item Value Reference Range Interpretation Comments Globulin (test code = Globulin) 3.8 2.0-4.0 N [facility] AustinOiqltzrPBJYJTBOV6861-51-82 22:50:00 Test Item Value Reference Range Interpretation Comments B/C Ratio (test code = B/C Ratio) 21 6-25 N [facility] AustinAwcfkonJYMSJZDYW6246-29-31 22:50:00 Test Item Value Reference Range Interpretation Comments AGAP (test code = AGAP) 16.8 10.0-20.0 N [facility] AustinBryfrewXRSYNCLWT0373-20-72 22:50:00 Test Item Value Reference Range Interpretation Comments Bili Total (test code = Bili Total) 1.1 0.2-1.3 N [facility] AustinIufarqnYDVLNOONI9284-01-20 22:50:00 Test Item Value Reference Range Interpretation Comments Total Protein (test code = Total 8.2 6.4-8.4 N Protein) [facility] AustinNdcrbgaRQUIXJVCE1840-66-62 22:50:00 Test Item Value Reference Range Interpretation Comments Potassium Lvl (test code = Potassium 3.8 3.5-5.1 N Lvl) [facility] AustinNijeqkqDEZYRWFIA7974-34-06 22:50:00 Test Item Value Reference Range Interpretation Comments Creatinine Lvl (test code = Creatinine 0.7 0.5-1.4 N Lvl) [facility] AustinLdcyqeoFDKJQJRIF3023-24-72 22:50:00 Test Item Value Reference Range Interpretation Comments Sodium Lvl (test code = Sodium Lvl) 139 135-145 N [facility] AustinHahabvsVQOLIKUAD5483-62-72 22:50:00 Test Item Value Reference Range Interpretation Comments Chloride Lvl (test code = Chloride Lvl) 99 95-109 N [facility] AustinTliiiibUFYHNHKBZ2441-90-23 22:50:00 Test Item Value Reference Range Interpretation Comments CO2 (test code = CO2) 27 24-32 N [facility] AustinLclqqeqQXMJYOUYN5959-74-96 22:50:00 Test Item Value Reference Range Interpretation Comments Glucose Lvl (test code = Glucose Lvl) 301 70-99 H [facility] AustinEajauryYHEXOIPCV5678-63-55 22:50:00 Test Item Value Reference Range Interpretation Comments BUN (test code = BUN) 15 7-22 N [facility] AustinAnrouxrFQIDWTURR4918-77-08 22:50:00 Test Item Value Reference Range Interpretation Comments ALT (test code = ALT) 24 See_Comment N [Auto mated message] The system which ge nerated this result transmit rohit reference range : <=65. The reference range was not used to interpr et this result as reji l/abnormal. [facility] AustinUtcrsioQUOPWGTRU2251-97-77 22:50:00 Test Item Value Reference Range Interpretation Comments AST (test code = AST) 20 See_Comment N [Auto mated message] The system which ge nerated this result transmit rohit reference range : <=37. The reference range was not used to interpr et this result as reji l/abnormal. [facility] AustinMmaetzzYYVBESSFQ2333-48-25 22:50:00 Test Item Value Reference Range Interpretation Comments Alk Phos (test code = Alk Phos) 67 39-136 N [facility] AustinLwlmzrfXCVXUPZUD5446-63-42 22:50:00 Test Item Value Reference Range Interpretation Comments Albumin Lvl (test code = Albumin Lvl) 4.4 3.5-5.0 N [facility] AustinZnwcxjdLYUDJCSFL3261-87-02 22:50:00 Test Item Value Reference Range Interpretation Comments Calcium Lvl (test code = Calcium Lvl) 9.9 8.5-10.5 N [facility]MlxwpipQJSXVIIHCT0757-40-30 22:50:00 Test Item Value Reference Range Interpretation Comments MPV (test code = MPV) 11.8 7.4-10.4 H [facility]anoHzaupulSGKQOGHLYR5700-19-58 22:50:00 Test Item Value Reference Range Interpretation Comments MCHC (test code = MCHC) 35.9 32.0-36.0 N [facility]anoSauyopjBBBMSKIACX1637-56-89 22:50:00 Test Item Value Reference Range Interpretation Comments MCH (test code = MCH) 31.2 pg 27.0-31.0 H [facility]anoJipzzrhCCCRQOJKCI5612-52-39 22:50:00 Test Item Value Reference Range Interpretation Comments Platelet (test code = Platelet) 189 133-450 N [facility]anoLlrtoknOWCFHVAHRS7305-66-09 22:50:00 Test Item Value Reference Range Interpretation Comments RDW (test code = RDW) 13.1 11.5-14.5 N [facility] PlanoDtuukhjFUWENNIVDO3435-25-72 22:50:00 Test Item Value Reference Range Interpretation Comments Hct (test code = Hct) 40.7 36.0-48.0 N [facility]anoSuaabggUFAYSAAJKE5206-26-16 22:50:00 Test Item Value Reference Range Interpretation Comments Hgb (test code = Hgb) 14.6 12.0-16.0 N [facility]anoKzyiookYJIMTQAPTQ9512-56-22 22:50:00 Test Item Value Reference Range Interpretation Comments MCV (test code = MCV) 87.0 81.0-99.0 N [facility]anoKekxiutGXTNFJTKKQ0943-58-60 22:50:00 Test Item Value Reference Range Interpretation Comments WBC (test code = WBC) 11.7 3.7-10.4 H [facility]anoKxwjjpsGTEUOPLLQB2843-39-06 22:50:00 Test Item Value Reference Range Interpretation Comments RBC (test code = RBC) 4.68 4.20-5.40 N [facility]anoKwpcqldRSELBJQNAP0106-67-71 22:50:00 Test Item Value Reference Range Interpretation Comments Basophils # (test code 0.0 See_Comment N [Aut omated message] The = Basophils #) system which generated this result tra nsmitted reference range : <=0.2. The reference r leo was not used to int erpret this result as normal/abnormal . [facility]anoRhdorvmSRCYMCZARP1766-22-83 22:50:00 Test Item Value Reference Range Interpretation Comments Basophils (test code = 0.2 See_Comment N [Aut omated message] The Basophils) system which ge nerated this result tra nsmitted reference range : <=1.0. The reference r leo was not used to int erpret this result as normal/abnormal . [facility]anoZztexgrXGMTYJDDAS4501-39-11 22:50:00 Test Item Value Reference Range Interpretation Comments Eosinophils # (test code 0.0 See_Comment N [A utomated message] The = Eosinophils #) system whic h generated this result tra nsmitted reference range : <=0.5. The reference r leo was not used to int erpret this result as normal/abnormal . [facility]anoSykdxzeDNQTFVRGTP0547-08-22 22:50:00 Test Item Value Reference Range Interpretation Comments Monocytes # (test code 0.4 See_Comment N [Aut omated message] The = Monocytes #) system which generated this result tra nsmitted reference range : <=0.8. The reference r leo was not used to int erpret this result as normal/abnormal . [facility]anoCjtmgvhGRBNZTHIPV0648-99-45 22:50:00 Test Item Value Reference Range Interpretation Comments Segs-Bands # (test code = Segs-Bands #) 10.6 1.5-8.1 H [facility] PlanoNnoqwbwNDLXTFYDZM1987-94-96 22:50:00 Test Item Value Reference Range Interpretation Comments Lymphocytes # (test code = Lymphocytes 0.7 1.0-5.5 L #) [facility] PlanoQarkanyUTIXBLJUEG8084-70-62 22:50:00 Test Item Value Reference Range Interpretation Comments Monocytes (test code = Monocytes) 3.4 2.0-12.0 N [facility]anoKaoyapfAIFPMXCSCT9380-12-65 22:50:00 Test Item Value Reference Range Interpretation Comments Plt Morph (test code = Normal (03/14/2012 N Plt Morph) 17:50:00) [facility]anoDjhpcrgWQQRSUUKIT2596-88-02 22:50:00 Test Item Value Reference Range Interpretation Comments Lymphocytes (test code = Lymphocytes) 6.0 20.0-40.0 L [facility] PlanoSnqqvcyYEQWXQORTY8130-40-23 22:50:00 Test Item Value Reference Range Interpretation Comments Eosinophils (test code = 0.0 See_Comment N [A utomated message] The Eosinophils) system which ge nerated this result tra nsmitted reference range : <=4.0. The reference r leo was not used to int erpret this result as normal/abnormal . [facility]anoJvrhduhPPCWWDPRCJ9695-49-53 22:50:00 Test Item Value Reference Range Interpretation Comments Segs (test code = Segs) 90.4 45.0-75.0 H [facility] PlanoRsrtpeoAJRSFCNSYT0007-20-70 22:50:00 Test Item Value Reference Range Interpretation Comments RBC Morph (test code = Normal (03/14/2012 N RBC Morph) 17:50:00) [facility] AustinJcqpokpXSVXJAUYX8195-66-65 22:50:00 Test Item Value Reference Range Interpretation Comments S Preg (test code = S Negative *NA*(03/14/2012 Preg) 17:50:00) [facility] AustinTnecsboJROTZXXZF6440-20-84 22:50:00 Test Item Value Reference Range Interpretation Comments Lipase Lvl (test code = Lipase Lvl) 45 73-393 L [facility] AustinFejnnsaWEYASISUE2296-14-04 22:50:00 Test Item Value Reference Range Interpretation Comments A/G Ratio (test code = A/G Ratio) 1.2 0.7-1.6 N [facility] AustinBnvnlvzUYZRUASYT6193-99-06 22:50:00 Test Item Value Reference Range Interpretation Comments Globulin (test code = Globulin) 3.8 2.0-4.0 N [facility] AustinJkczoygNYTBLSTWM1629-72-43 22:50:00 Test Item Value Reference Range Interpretation Comments B/C Ratio (test code = B/C Ratio) 21 6-25 N [facility] AustinYrqqgzaBMIITGQRT0138-69-37 22:50:00 Test Item Value Reference Range Interpretation Comments AGAP (test code = AGAP) 16.8 10.0-20.0 N [facility] AustinXywgamkTGZRIMWIC7117-43-81 22:50:00 Test Item Value Reference Range Interpretation Comments Bili Total (test code = Bili Total) 1.1 0.2-1.3 N [facility] AustinGwcnwviLTYDKECJH3884-79-31 22:50:00 Test Item Value Reference Range Interpretation Comments Total Protein (test code = Total 8.2 6.4-8.4 N Protein) [facility] AustinAljmjckWJULKKWOJ6504-01-52 22:50:00 Test Item Value Reference Range Interpretation Comments Potassium Lvl (test code = Potassium 3.8 3.5-5.1 N Lvl) [facility] AustinVmwopsoQIWFNQGPD6303-66-39 22:50:00 Test Item Value Reference Range Interpretation Comments Creatinine Lvl (test code = Creatinine 0.7 0.5-1.4 N Lvl) [facility] AustinWzpsrhrOOFCBWBLR4196-51-09 22:50:00 Test Item Value Reference Range Interpretation Comments Sodium Lvl (test code = Sodium Lvl) 139 135-145 N [facility] AustinOdhhkivONSNOSLTT1440-91-31 22:50:00 Test Item Value Reference Range Interpretation Comments Chloride Lvl (test code = Chloride Lvl) 99 95-109 N [facility] AustinWgemcelMYJOCMRDI5501-14-70 22:50:00 Test Item Value Reference Range Interpretation Comments CO2 (test code = CO2) 27 24-32 N [facility] AustinZvkwbfeHNFYITYKG2024-24-09 22:50:00 Test Item Value Reference Range Interpretation Comments Glucose Lvl (test code = Glucose Lvl) 301 70-99 H [facility] AustinDtifkfdYOFAOJAKM8429-63-68 22:50:00 Test Item Value Reference Range Interpretation Comments BUN (test code = BUN) 15 7-22 N [facility] AustinLpdlechYCTCTTWIQ9017-00-32 22:50:00 Test Item Value Reference Range Interpretation Comments ALT (test code = ALT) 24 See_Comment N [Auto mated message] The system which ge nerated this result transmit rohit reference range : <=65. The reference range was not used to interpr et this result as reji l/abnormal. [facility] AustinTteenjfOJZDCPKRE9910-45-17 22:50:00 Test Item Value Reference Range Interpretation Comments AST (test code = AST) 20 See_Comment N [Auto mated message] The system which ge nerated this result transmit rohit reference range : <=37. The reference range was not used to interpr et this result as reji l/abnormal. [facility] AustinOxsmklaPAEQAUTIU4648-43-16 22:50:00 Test Item Value Reference Range Interpretation Comments Alk Phos (test code = Alk Phos) 67 39-136 N [facility] AustinAtqhwobKWSYIFKKZ9452-32-84 22:50:00 Test Item Value Reference Range Interpretation Comments Albumin Lvl (test code = Albumin Lvl) 4.4 3.5-5.0 N [facility] AustinAdwfmiyLPENEDKWI7929-10-16 22:50:00 Test Item Value Reference Range Interpretation Comments Calcium Lvl (test code = Calcium Lvl) 9.9 8.5-10.5 N [facility]anoBzrtzijOWLHRPANZS4049-39-75 22:50:00 Test Item Value Reference Range Interpretation Comments MPV (test code = MPV) 11.8 7.4-10.4 H [facility]anoRhncjlcGQJIFZZXZC1270-28-03 22:50:00 Test Item Value Reference Range Interpretation Comments MCHC (test code = MCHC) 35.9 32.0-36.0 N [facility]anoNhtqyijQPZBAPXTID3665-70-90 22:50:00 Test Item Value Reference Range Interpretation Comments MCH (test code = MCH) 31.2 pg 27.0-31.0 H [facility]anoPssivvxACHFRKJWYI8320-07-95 22:50:00 Test Item Value Reference Range Interpretation Comments Platelet (test code = Platelet) 189 133-450 N [facility] PlanoQwvsgmrRPCHXGUYYZ1199-32-74 22:50:00 Test Item Value Reference Range Interpretation Comments RDW (test code = RDW) 13.1 11.5-14.5 N [facility]anoPbejsoaSRPZCOUKJE3798-33-44 22:50:00 Test Item Value Reference Range Interpretation Comments Hct (test code = Hct) 40.7 36.0-48.0 N [facility] PlanoYnlwqajVQIHEFYQCB5536-26-08 22:50:00 Test Item Value Reference Range Interpretation Comments Hgb (test code = Hgb) 14.6 12.0-16.0 N [facility] PlanoMcrlpzuOBLIYHZDTH2866-57-69 22:50:00 Test Item Value Reference Range Interpretation Comments MCV (test code = MCV) 87.0 81.0-99.0 N [facility] PlanoSiaxquwEAHAVANSHU1606-76-40 22:50:00 Test Item Value Reference Range Interpretation Comments WBC (test code = WBC) 11.7 3.7-10.4 H [facility] PlanoKszkgvxKAITRXGFCR0180-13-32 22:50:00 Test Item Value Reference Range Interpretation Comments RBC (test code = RBC) 4.68 4.20-5.40 N [facility] PlanoDzcwgcuMVUKJNRCQP8009-32-12 22:50:00 Test Item Value Reference Range Interpretation Comments Basophils # (test code 0.0 See_Comment N [Aut omated message] The = Basophils #) system which generated this result tra nsmitted reference range : <=0.2. The reference r leo was not used to int erpret this result as normal/abnormal . [facility] PlanoHlujebiUAJUSJMUWK4098-42-03 22:50:00 Test Item Value Reference Range Interpretation Comments Basophils (test code = 0.2 See_Comment N [Aut omated message] The Basophils) system which ge nerated this result tra nsmitted reference range : <=1.0. The reference r leo was not used to int erpret this result as normal/abnormal . [facility]SymadqfJYPHPHQWZG3985-84-44 22:50:00 Test Item Value Reference Range Interpretation Comments Eosinophils # (test code 0.0 See_Comment N [A utomated message] The = Eosinophils #) system whic h generated this result tra nsmitted reference range : <=0.5. The reference r leo was not used to int erpret this result as normal/abnormal . [facility]anoIqjaslbBPDDOTDRPQ1748-96-24 22:50:00 Test Item Value Reference Range Interpretation Comments Monocytes # (test code 0.4 See_Comment N [Aut omated message] The = Monocytes #) system which generated this result tra nsmitted reference range : <=0.8. The reference r leo was not used to int erpret this result as normal/abnormal . [facility]anoTiglkcqRQWHZTFOSZ3545-67-18 22:50:00 Test Item Value Reference Range Interpretation Comments Segs-Bands # (test code = Segs-Bands #) 10.6 1.5-8.1 H [facility]anoAfpshecLMSDGSOUJM7691-03-93 22:50:00 Test Item Value Reference Range Interpretation Comments Lymphocytes # (test code = Lymphocytes 0.7 1.0-5.5 L #) [facility]anoMlxkkvzTWJFQKHDUI1229-62-39 22:50:00 Test Item Value Reference Range Interpretation Comments Monocytes (test code = Monocytes) 3.4 2.0-12.0 N [facility]anoSmtotshAWLSPWUZNX3974-57-61 22:50:00 Test Item Value Reference Range Interpretation Comments Plt Morph (test code = Normal (03/14/2012 N Plt Morph) 17:50:00) [facility]anoQhlxnxeYKENQDZLIQ4276-90-86 22:50:00 Test Item Value Reference Range Interpretation Comments Lymphocytes (test code = Lymphocytes) 6.0 20.0-40.0 L [facility]anoWqpxftnGRPUMTOIES5973-98-26 22:50:00 Test Item Value Reference Range Interpretation Comments Eosinophils (test code = 0.0 See_Comment N [A utomated message] The Eosinophils) system which ge nerated this result tra nsmitted reference range : <=4.0. The reference r leo was not used to int erpret this result as normal/abnormal . [facility]anoNlpxaeyFWQQGQROGS6303-09-05 22:50:00 Test Item Value Reference Range Interpretation Comments Segs (test code = Segs) 90.4 45.0-75.0 H [facility]anoRwyriqzUCRHGDAOIQ8624-54-01 22:50:00 Test Item Value Reference Range Interpretation Comments RBC Morph (test code = Normal (03/14/2012 N RBC Morph) 17:50:00) [facility] CenterLlefgolXVFXHEWCN6951-30-14 22:50:00 Test Item Value Reference Range Interpretation Comments S Preg (test code = S Negative *NA*(03/14/2012 Preg) 17:50:00) [facility] AustinJosymamIFWTHAECN1985-00-67 22:50:00 Test Item Value Reference Range Interpretation Comments Lipase Lvl (test code = Lipase Lvl) 45 73-393 L [facility] AustinLlxzscbLTFZYYHWG0054-69-75 22:50:00 Test Item Value Reference Range Interpretation Comments A/G Ratio (test code = A/G Ratio) 1.2 0.7-1.6 N [facility] AustinPujabmdYJKVKGBBF1704-01-17 22:50:00 Test Item Value Reference Range Interpretation Comments Globulin (test code = Globulin) 3.8 2.0-4.0 N [facility] AustinPwpcnwgRJCSPWWOS7514-40-25 22:50:00 Test Item Value Reference Range Interpretation Comments B/C Ratio (test code = B/C Ratio) 21 6-25 N [facility] AustinBmipjmoFYRIUXIBB5759-54-88 22:50:00 Test Item Value Reference Range Interpretation Comments AGAP (test code = AGAP) 16.8 10.0-20.0 N [facility] AustinEgehxeoXFLKMDPWG0135-07-97 22:50:00 Test Item Value Reference Range Interpretation Comments Bili Total (test code = Bili Total) 1.1 0.2-1.3 N [facility] AustinDcizzrxPGJAWUNMX3197-57-73 22:50:00 Test Item Value Reference Range Interpretation Comments Total Protein (test code = Total 8.2 6.4-8.4 N Protein) [facility] AustinLxobmutFKLVFJPHM7685-71-58 22:50:00 Test Item Value Reference Range Interpretation Comments Potassium Lvl (test code = Potassium 3.8 3.5-5.1 N Lvl) [facility] AustinHidupuuHDXYMXJYW8688-69-53 22:50:00 Test Item Value Reference Range Interpretation Comments Creatinine Lvl (test code = Creatinine 0.7 0.5-1.4 N Lvl) [facility] AustinBczwyagWQBLAENNG5727-67-61 22:50:00 Test Item Value Reference Range Interpretation Comments Sodium Lvl (test code = Sodium Lvl) 139 135-145 N [facility] AustinSswwswlRMRWMBSDX8059-41-33 22:50:00 Test Item Value Reference Range Interpretation Comments Chloride Lvl (test code = Chloride Lvl) 99 95-109 N [facility] AustinLyqxieyHWGJDFTAJ1526-90-80 22:50:00 Test Item Value Reference Range Interpretation Comments CO2 (test code = CO2) 27 24-32 N [facility] AustinWrnodxvIZZKFQPDU6539-01-61 22:50:00 Test Item Value Reference Range Interpretation Comments Glucose Lvl (test code = Glucose Lvl) 301 70-99 H [facility] AustinXwyylqqICIAURAIT2835-67-47 22:50:00 Test Item Value Reference Range Interpretation Comments BUN (test code = BUN) 15 7-22 N [facility] AustinMhiysbdSMRIUOKBP7063-04-22 22:50:00 Test Item Value Reference Range Interpretation Comments ALT (test code = ALT) 24 See_Comment N [Auto mated message] The system which ge nerated this result transmit rohit reference range : <=65. The reference range was not used to interpr et this result as reji l/abnormal. [facility] AustinWahlkdjSNVBURJLK4305-71-31 22:50:00 Test Item Value Reference Range Interpretation Comments AST (test code = AST) 20 See_Comment N [Auto mated message] The system which ge nerated this result transmit rohit reference range : <=37. The reference range was not used to interpr et this result as reji l/abnormal. [facility] AustinAyhiptzDNEMAYFDZ5713-24-01 22:50:00 Test Item Value Reference Range Interpretation Comments Alk Phos (test code = Alk Phos) 67 39-136 N [facility] AustinPkjfmyuDJNDZQEYP6341-73-42 22:50:00 Test Item Value Reference Range Interpretation Comments Albumin Lvl (test code = Albumin Lvl) 4.4 3.5-5.0 N [facility] AustinZqlgjcgKPLEEWLEN0981-57-75 22:50:00 Test Item Value Reference Range Interpretation Comments Calcium Lvl (test code = Calcium Lvl) 9.9 8.5-10.5 N [facility]anoLghcyznRGFLMZMEVG7465-94-20 22:50:00 Test Item Value Reference Range Interpretation Comments MPV (test code = MPV) 11.8 7.4-10.4 H [facility]anoReixzodKRUIFPINTT4494-01-56 22:50:00 Test Item Value Reference Range Interpretation Comments MCHC (test code = MCHC) 35.9 32.0-36.0 N [facility]anoJvexggdYFFEXTCIIF0567-37-55 22:50:00 Test Item Value Reference Range Interpretation Comments MCH (test code = MCH) 31.2 pg 27.0-31.0 H [facility]anoOtcvbtaJMAITCDXXO8439-30-40 22:50:00 Test Item Value Reference Range Interpretation Comments Platelet (test code = Platelet) 189 133-450 N [facility]anoIucmsmvVLNFUDXVUR4342-26-59 22:50:00 Test Item Value Reference Range Interpretation Comments RDW (test code = RDW) 13.1 11.5-14.5 N [facility]anoEgdoiiaXPJVFGJRRO9243-70-54 22:50:00 Test Item Value Reference Range Interpretation Comments Hct (test code = Hct) 40.7 36.0-48.0 N [facility]anoXzwybigOTNDIHRWNV2518-64-89 22:50:00 Test Item Value Reference Range Interpretation Comments Hgb (test code = Hgb) 14.6 12.0-16.0 N [facility]anoThgnmeaDRRTCNECXH7995-96-15 22:50:00 Test Item Value Reference Range Interpretation Comments MCV (test code = MCV) 87.0 81.0-99.0 N [facility]anoOzyhjtgWMEHZAYLWR8997-05-90 22:50:00 Test Item Value Reference Range Interpretation Comments WBC (test code = WBC) 11.7 3.7-10.4 H [facility]anoKowzcyaVWNLIEIFEE9000-05-82 22:50:00 Test Item Value Reference Range Interpretation Comments RBC (test code = RBC) 4.68 4.20-5.40 N [facility]anoTmpoiobQCMULTSQZR1752-02-32 22:50:00 Test Item Value Reference Range Interpretation Comments Basophils # (test code 0.0 See_Comment N [Aut omated message] The = Basophils #) system which generated this result tra nsmitted reference range : <=0.2. The reference r leo was not used to int erpret this result as normal/abnormal . [facility]anoMgfiswuXPJQBKWOVZ0232-86-42 22:50:00 Test Item Value Reference Range Interpretation Comments Basophils (test code = 0.2 See_Comment N [Aut omated message] The Basophils) system which ge nerated this result tra nsmitted reference range : <=1.0. The reference r leo was not used to int erpret this result as normal/abnormal . [facility]anoCandpaeLJJTOVSADI2971-69-19 22:50:00 Test Item Value Reference Range Interpretation Comments Eosinophils # (test code 0.0 See_Comment N [A utomated message] The = Eosinophils #) system whic h generated this result tra nsmitted reference range : <=0.5. The reference r leo was not used to int erpret this result as normal/abnormal . [facility]anoKrlfoyuRHSKZGQOUW2795-94-55 22:50:00 Test Item Value Reference Range Interpretation Comments Monocytes # (test code 0.4 See_Comment N [Aut omated message] The = Monocytes #) system which generated this result tra nsmitted reference range : <=0.8. The reference r leo was not used to int erpret this result as normal/abnormal . [facility]anoHuszgwfNMWATBUMXI1432-25-19 22:50:00 Test Item Value Reference Range Interpretation Comments Segs-Bands # (test code = Segs-Bands #) 10.6 1.5-8.1 H [facility]anoGgdosbkIUUELUHAGZ2968-54-18 22:50:00 Test Item Value Reference Range Interpretation Comments Lymphocytes # (test code = Lymphocytes 0.7 1.0-5.5 L #) [facility]anoVlqyoqxZAIULHMHNG1147-72-32 22:50:00 Test Item Value Reference Range Interpretation Comments Monocytes (test code = Monocytes) 3.4 2.0-12.0 N [facility]anoBqxksipWHXQBYMNEO8568-14-18 22:50:00 Test Item Value Reference Range Interpretation Comments Plt Morph (test code = Normal (03/14/2012 N Plt Morph) 17:50:00) [facility]anoXsgpgfqLSCFVCYBFS2289-71-75 22:50:00 Test Item Value Reference Range Interpretation Comments Lymphocytes (test code = Lymphocytes) 6.0 20.0-40.0 L [facility]anoVsrzbvxGVUSNEVMLZ6858-34-12 22:50:00 Test Item Value Reference Range Interpretation Comments Eosinophils (test code = 0.0 See_Comment N [A utomated message] The Eosinophils) system which ge nerated this result tra nsmitted reference range : <=4.0. The reference r leo was not used to int erpret this result as normal/abnormal . [facility]anoVachwwiFHFKGJITIY4497-11-25 22:50:00 Test Item Value Reference Range Interpretation Comments Segs (test code = Segs) 90.4 45.0-75.0 H [facility]anoBzolgrkWBDTBMCRRJ0827-99-82 22:50:00 Test Item Value Reference Range Interpretation Comments RBC Morph (test code = Normal (03/14/2012 N RBC Morph) 17:50:00) [facility] AustinFqmycjfOJMOBDJEZ2867-12-53 22:50:00 Test Item Value Reference Range Interpretation Comments S Preg (test code = S Negative *NA*(03/14/2012 Preg) 17:50:00) [facility] AustinTlzlrpyIOLASFPCY4579-46-88 22:50:00 Test Item Value Reference Range Interpretation Comments Lipase Lvl (test code = Lipase Lvl) 45 73-393 L [facility] AustinOewmkzvZJKNWRZGG9840-97-71 22:50:00 Test Item Value Reference Range Interpretation Comments A/G Ratio (test code = A/G Ratio) 1.2 0.7-1.6 N [facility] AustinNmngyweALSBZVMXS1535-19-77 22:50:00 Test Item Value Reference Range Interpretation Comments Globulin (test code = Globulin) 3.8 2.0-4.0 N [facility] AustinHroopjsSOREHIEPM6714-30-27 22:50:00 Test Item Value Reference Range Interpretation Comments B/C Ratio (test code = B/C Ratio) 21 6-25 N [facility] AustinNlnykimQDXDPSYOU1742-13-41 22:50:00 Test Item Value Reference Range Interpretation Comments AGAP (test code = AGAP) 16.8 10.0-20.0 N [facility] AustinXyqyxubSEJBAMUVV3950-14-93 22:50:00 Test Item Value Reference Range Interpretation Comments Bili Total (test code = Bili Total) 1.1 0.2-1.3 N [facility] AustinMhhxdsyQMJNLCKEG7030-62-13 22:50:00 Test Item Value Reference Range Interpretation Comments Total Protein (test code = Total 8.2 6.4-8.4 N Protein) [facility] AustinPqulxcbDOYCQHRPM2969-82-50 22:50:00 Test Item Value Reference Range Interpretation Comments Potassium Lvl (test code = Potassium 3.8 3.5-5.1 N Lvl) [facility] AustinQttyrpwVFXBKFNSS7645-28-97 22:50:00 Test Item Value Reference Range Interpretation Comments Creatinine Lvl (test code = Creatinine 0.7 0.5-1.4 N Lvl) [facility] AustinUqdijgjDGSRNOGFI4642-89-66 22:50:00 Test Item Value Reference Range Interpretation Comments Sodium Lvl (test code = Sodium Lvl) 139 135-145 N [facility] AustinTdmkensWKOLJETMK6940-53-39 22:50:00 Test Item Value Reference Range Interpretation Comments Chloride Lvl (test code = Chloride Lvl) 99 95-109 N [facility] AustinWtipwhoNFULENKSS3312-63-47 22:50:00 Test Item Value Reference Range Interpretation Comments CO2 (test code = CO2) 27 24-32 N [facility] AustinOzolucwQFDBPWXQN5513-25-28 22:50:00 Test Item Value Reference Range Interpretation Comments Glucose Lvl (test code = Glucose Lvl) 301 70-99 H [facility] AustinTdupvmlCZCWBJMET7434-51-07 22:50:00 Test Item Value Reference Range Interpretation Comments BUN (test code = BUN) 15 7-22 N [facility] AustinOkreltsQXDBPKQSR2537-51-57 22:50:00 Test Item Value Reference Range Interpretation Comments ALT (test code = ALT) 24 See_Comment N [Auto mated message] The system which ge nerated this result transmit rohit reference range : <=65. The reference range was not used to interpr et this result as reji l/abnormal. [facility] AustinWnjfhrlVOHYJPFUJ8304-09-18 22:50:00 Test Item Value Reference Range Interpretation Comments AST (test code = AST) 20 See_Comment N [Auto mated message] The system which ge nerated this result transmit rohit reference range : <=37. The reference range was not used to interpr et this result as reji l/abnormal. [facility] AustinLjyjigfNPEPNRNVI0941-79-31 22:50:00 Test Item Value Reference Range Interpretation Comments Alk Phos (test code = Alk Phos) 67 39-136 N [facility] AustinKidwqtuOBLLQGNBB3636-08-24 22:50:00 Test Item Value Reference Range Interpretation Comments Albumin Lvl (test code = Albumin Lvl) 4.4 3.5-5.0 N [facility] AustinYgvhejeYYTJNLAQR5684-21-61 22:50:00 Test Item Value Reference Range Interpretation Comments Calcium Lvl (test code = Calcium Lvl) 9.9 8.5-10.5 N [facility]anoCysdshxDEVYINTLJJ9826-20-07 22:50:00 Test Item Value Reference Range Interpretation Comments MPV (test code = MPV) 11.8 7.4-10.4 H [facility]anoTbheetwSQJWGFOBBQ1109-55-33 22:50:00 Test Item Value Reference Range Interpretation Comments MCHC (test code = MCHC) 35.9 32.0-36.0 N [facility]anoWbixreiWVPRCOHQYW0947-57-58 22:50:00 Test Item Value Reference Range Interpretation Comments MCH (test code = MCH) 31.2 pg 27.0-31.0 H [facility]anoQflzkqvFGZXKVKYPR2343-85-52 22:50:00 Test Item Value Reference Range Interpretation Comments Platelet (test code = Platelet) 189 133-450 N [facility]anoKhfvqsdKZIQSZNUGM4063-45-14 22:50:00 Test Item Value Reference Range Interpretation Comments RDW (test code = RDW) 13.1 11.5-14.5 N [facility] PlanoBbiofeoRWGDNSIIIZ2775-51-65 22:50:00 Test Item Value Reference Range Interpretation Comments Hct (test code = Hct) 40.7 36.0-48.0 N [facility]anoVnlhzzgLNWNMNNXGY4886-79-40 22:50:00 Test Item Value Reference Range Interpretation Comments Hgb (test code = Hgb) 14.6 12.0-16.0 N [facility]anoLgivoktYSUMSBXJIY0250-45-54 22:50:00 Test Item Value Reference Range Interpretation Comments MCV (test code = MCV) 87.0 81.0-99.0 N [facility]anoWqscxtdQJRUTOWCPR0594-77-79 22:50:00 Test Item Value Reference Range Interpretation Comments WBC (test code = WBC) 11.7 3.7-10.4 H [facility]anoUekmuywURLBUEGXOU0893-41-24 22:50:00 Test Item Value Reference Range Interpretation Comments RBC (test code = RBC) 4.68 4.20-5.40 N [facility]anoDytdfjcKPELSTBGTU1747-17-32 22:50:00 Test Item Value Reference Range Interpretation Comments Basophils # (test code 0.0 See_Comment N [Aut omated message] The = Basophils #) system which generated this result tra nsmitted reference range : <=0.2. The reference r leo was not used to int erpret this result as normal/abnormal . [facility]anoEmjuhtdWVUYXZQMSW3552-27-10 22:50:00 Test Item Value Reference Range Interpretation Comments Basophils (test code = 0.2 See_Comment N [Aut omated message] The Basophils) system which ge nerated this result tra nsmitted reference range : <=1.0. The reference r leo was not used to int erpret this result as normal/abnormal . [facility]anoZrhfdbxFZNRFWUJHL5219-53-50 22:50:00 Test Item Value Reference Range Interpretation Comments Eosinophils # (test code 0.0 See_Comment N [A utomated message] The = Eosinophils #) system whic h generated this result tra nsmitted reference range : <=0.5. The reference r leo was not used to int erpret this result as normal/abnormal . [facility]anoEcsbdukVEQSXKFTZV1482-77-18 22:50:00 Test Item Value Reference Range Interpretation Comments Monocytes # (test code 0.4 See_Comment N [Aut omated message] The = Monocytes #) system which generated this result tra nsmitted reference range : <=0.8. The reference r leo was not used to int erpret this result as normal/abnormal . [facility]anoBttvtphKUZHLMZHOC5493-33-17 22:50:00 Test Item Value Reference Range Interpretation Comments Segs-Bands # (test code = Segs-Bands #) 10.6 1.5-8.1 H [facility]anoFuokythIXDEWEZXZD8353-10-82 22:50:00 Test Item Value Reference Range Interpretation Comments Lymphocytes # (test code = Lymphocytes 0.7 1.0-5.5 L #) [facility]anoPswistcQMQLKSHHFE1054-47-42 22:50:00 Test Item Value Reference Range Interpretation Comments Monocytes (test code = Monocytes) 3.4 2.0-12.0 N [facility]anoIjfhxgfXXAVUSJOKC3474-53-51 22:50:00 Test Item Value Reference Range Interpretation Comments Plt Morph (test code = Normal (03/14/2012 N Plt Morph) 17:50:00) [facility]anoSnlwnmkQEGUXNQVTU0717-28-79 22:50:00 Test Item Value Reference Range Interpretation Comments Lymphocytes (test code = Lymphocytes) 6.0 20.0-40.0 L [facility]anoIwqalgsAXDHXFVBEH0190-75-19 22:50:00 Test Item Value Reference Range Interpretation Comments Eosinophils (test code = 0.0 See_Comment N [A utomated message] The Eosinophils) system which ge nerated this result tra nsmitted reference range : <=4.0. The reference r leo was not used to int erpret this result as normal/abnormal . [facility]anoJjijrslVRFLHYJQHR4772-77-95 22:50:00 Test Item Value Reference Range Interpretation Comments Segs (test code = Segs) 90.4 45.0-75.0 H [facility]anoIygmvtnJBWWDYRQNR8793-24-77 22:50:00 Test Item Value Reference Range Interpretation Comments RBC Morph (test code = Normal (03/14/2012 N RBC Morph) 17:50:00) [facility] AustinVvhibqxSOWJGIHVN0339-62-97 22:50:00 Test Item Value Reference Range Interpretation Comments S Preg (test code = S Negative *NA*(03/14/2012 Preg) 17:50:00) [facility] AustinXmnkwaxWOPVSCNLP9936-23-56 22:50:00 Test Item Value Reference Range Interpretation Comments Lipase Lvl (test code = Lipase Lvl) 45 73-393 L [facility] AustinNmcqkviPNJRCGGCB3341-24-90 22:50:00 Test Item Value Reference Range Interpretation Comments A/G Ratio (test code = A/G Ratio) 1.2 0.7-1.6 N [facility] AustinExahiozTIFSAYCYA1586-13-21 22:50:00 Test Item Value Reference Range Interpretation Comments Globulin (test code = Globulin) 3.8 2.0-4.0 N [facility] AustinStofntsWFIOTTYXN4704-33-70 22:50:00 Test Item Value Reference Range Interpretation Comments B/C Ratio (test code = B/C Ratio) 21 6-25 N [facility] AustinArkgtfcHHFCCQBNW4470-20-04 22:50:00 Test Item Value Reference Range Interpretation Comments AGAP (test code = AGAP) 16.8 10.0-20.0 N [facility] AustinCxuxljvWYJYLBQBO1759-57-64 22:50:00 Test Item Value Reference Range Interpretation Comments Bili Total (test code = Bili Total) 1.1 0.2-1.3 N [facility] AustinOxxftfkQRDGGLDJD1554-07-83 22:50:00 Test Item Value Reference Range Interpretation Comments Total Protein (test code = Total 8.2 6.4-8.4 N Protein) [facility] AustinAirxdhlJNWTANSEE7311-39-85 22:50:00 Test Item Value Reference Range Interpretation Comments Potassium Lvl (test code = Potassium 3.8 3.5-5.1 N Lvl) [facility] AustinSlvqiflRFCHZFJKW2003-94-98 22:50:00 Test Item Value Reference Range Interpretation Comments Creatinine Lvl (test code = Creatinine 0.7 0.5-1.4 N Lvl) [facility] AustinYzhwixhDRAZOHXWB5354-54-77 22:50:00 Test Item Value Reference Range Interpretation Comments Sodium Lvl (test code = Sodium Lvl) 139 135-145 N [facility] AustinMykhefzOZYLOWLGU0456-72-97 22:50:00 Test Item Value Reference Range Interpretation Comments Chloride Lvl (test code = Chloride Lvl) 99 95-109 N [facility] AustinVknhujwQIGNVIZEQ7498-84-49 22:50:00 Test Item Value Reference Range Interpretation Comments CO2 (test code = CO2) 27 24-32 N [facility] AustinFckmqhkIEUZGYBPW2568-53-23 22:50:00 Test Item Value Reference Range Interpretation Comments Glucose Lvl (test code = Glucose Lvl) 301 70-99 H [facility] AustinGgylhinBBCXGDWVZ7779-42-69 22:50:00 Test Item Value Reference Range Interpretation Comments BUN (test code = BUN) 15 7-22 N [facility] AustinPveornmVQSOHYZEJ4767-02-59 22:50:00 Test Item Value Reference Range Interpretation Comments ALT (test code = ALT) 24 See_Comment N [Auto mated message] The system which ge nerated this result transmit rohit reference range : <=65. The reference range was not used to interpr et this result as reji l/abnormal. [facility] AustinJeexrdbOLEKXKVHI9593-87-02 22:50:00 Test Item Value Reference Range Interpretation Comments AST (test code = AST) 20 See_Comment N [Auto mated message] The system which ge nerated this result transmit rohit reference range : <=37. The reference range was not used to interpr et this result as reji l/abnormal. [facility] AustinOvtdernXUEPSKDEF2482-75-84 22:50:00 Test Item Value Reference Range Interpretation Comments Alk Phos (test code = Alk Phos) 67 39-136 N [facility] AustinDexvpaxVOODLJRLN5162-08-47 22:50:00 Test Item Value Reference Range Interpretation Comments Albumin Lvl (test code = Albumin Lvl) 4.4 3.5-5.0 N [facility] AustinTzrpbldCLEDOQHQP3399-88-24 22:50:00 Test Item Value Reference Range Interpretation Comments Calcium Lvl (test code = Calcium Lvl) 9.9 8.5-10.5 N [facility]anoQudhlxgVXXTQZCGIL2751-58-47 22:50:00 Test Item Value Reference Range Interpretation Comments MPV (test code = MPV) 11.8 7.4-10.4 H [facility]anoTdncwnuHJXOUUREJQ2974-39-60 22:50:00 Test Item Value Reference Range Interpretation Comments MCHC (test code = MCHC) 35.9 32.0-36.0 N [facility] PlanoGlqjziuFELGITRQEO4491-20-20 22:50:00 Test Item Value Reference Range Interpretation Comments MCH (test code = MCH) 31.2 pg 27.0-31.0 [facility]anoNnwatpbIYJGSPMKZV8734-05-26 22:50:00 Test Item Value Reference Range Interpretation Comments Platelet (test code = Platelet) 189 133-450 N [facility]anoDckpdtrGUONHKQGGC2650-55-31 22:50:00 Test Item Value Reference Range Interpretation Comments RDW (test code = RDW) 13.1 11.5-14.5 N [facility]anoCgimaybZRTUCUYCEB3388-61-05 22:50:00 Test Item Value Reference Range Interpretation Comments Hct (test code = Hct) 40.7 36.0-48.0 N [facility]anoEesudyuCPRDJYFSUG9973-04-40 22:50:00 Test Item Value Reference Range Interpretation Comments Hgb (test code = Hgb) 14.6 12.0-16.0 N [facility]anoIfviizjUDJYJXFLXU7371-96-85 22:50:00 Test Item Value Reference Range Interpretation Comments MCV (test code = MCV) 87.0 81.0-99.0 N [facility]anoOrrvdrtFWPWKNSSTO3185-58-07 22:50:00 Test Item Value Reference Range Interpretation Comments WBC (test code = WBC) 11.7 3.7-10.4 [facility]anoMkkehwbVBEIGJMCTX6865-08-36 22:50:00 Test Item Value Reference Range Interpretation Comments RBC (test code = RBC) 4.68 4.20-5.40 [facility]anoIrkutpjFMDZDFBYSJ9403-74-21 22:50:00 Test Item Value Reference Range Interpretation Comments Basophils # (test code 0.0 See_Comment N [Aut omated message] The = Basophils #) system which generated this result tra nsmitted reference range : <=0.2. The reference r leo was not used to int erpret this result as normal/abnormal . [facility]anoWhytgkhUXQETCXSHT1709-78-77 22:50:00 Test Item Value Reference Range Interpretation Comments Basophils (test code = 0.2 See_Comment N [Aut omated message] The Basophils) system which ge nerated this result tra nsmitted reference range : <=1.0. The reference r leo was not used to int erpret this result as normal/abnormal . [facility]anoTceeixdHRIJVUGMVF9707-10-58 22:50:00 Test Item Value Reference Range Interpretation Comments Eosinophils # (test code 0.0 See_Comment N [A utomated message] The = Eosinophils #) system whic h generated this result tra nsmitted reference range : <=0.5. The reference r leo was not used to int erpret this result as normal/abnormal . [facility]anoPdvuqkgRQFFFLPSZS0933-53-68 22:50:00 Test Item Value Reference Range Interpretation Comments Monocytes # (test code 0.4 See_Comment N [Aut omated message] The = Monocytes #) system which generated this result tra nsmitted reference range : <=0.8. The reference r leo was not used to int erpret this result as normal/abnormal . [facility]anoYhcrpoySQICCCNQAZ7348-72-89 22:50:00 Test Item Value Reference Range Interpretation Comments Segs-Bands # (test code = Segs-Bands #) 10.6 1.5-8.1 [facility]anoFaygocxTONILDRONN5123-48-08 22:50:00 Test Item Value Reference Range Interpretation Comments Lymphocytes # (test code = Lymphocytes 0.7 1.0-5.5 L #) [facility]anoDtwejfkNTELHDRHTT0864-82-58 22:50:00 Test Item Value Reference Range Interpretation Comments Monocytes (test code = Monocytes) 3.4 2.0-12.0 N [facility]anoGtkyhpcFWPDYDGPZP8196-00-02 22:50:00 Test Item Value Reference Range Interpretation Comments Plt Morph (test code = Normal (03/14/2012 N Plt Morph) 17:50:00) [facility]anoIcfffnbIYUULFJPLC9498-94-14 22:50:00 Test Item Value Reference Range Interpretation Comments Lymphocytes (test code = Lymphocytes) 6.0 20.0-40.0 L [facility]anoDwvryozQFDSGSUZIS6712-67-46 22:50:00 Test Item Value Reference Range Interpretation Comments Eosinophils (test code = 0.0 See_Comment N [A utomated message] The Eosinophils) system which ge nerated this result tra nsmitted reference range : <=4.0. The reference r leo was not used to int erpret this result as normal/abnormal . [facility]anoRbgawmzFWDPFPQSEV7777-71-76 22:50:00 Test Item Value Reference Range Interpretation Comments Segs (test code = Segs) 90.4 45.0-75.0 [facility]ckblnbSMSHWDWQRX8948-31-32 22:50:00 Test Item Value Reference Range Interpretation Comments RBC Morph (test code = Normal (03/14/2012 N RBC Morph) 17:50:00) [facility] GLUCOSE [id number] 23:43:00 Test Item Value Reference Range Interpretation Comments Gluc POC Lifscn (test code = Gluc POC 167 70-99 H Lifscn) [facility] GLUCOSE [id number] 23:43:00 Test Item Value Reference Range Interpretation Comments Comment1 (test code = Comment1) Notifcaron MAYS/ [facility] GLUCOSE [id number] 23:43:00 Test Item Value Reference Range Interpretation Comments Comment2 (test code = Comment2) Sliding Scale [facility] GLUCOSE [id number] 23:43:00 Test Item Value Reference Range Interpretation Comments Gluc POC Lifscn (test code = Gluc POC 167 70-99 H Lifscn) [facility] GLUCOSE [id number] 23:43:00 Test Item Value Reference Range Interpretation Comments Comment1 (test code = Comment1) Notify TABATHA/ [facility] GLUCOSE [id number] 23:43:00 Test Item Value Reference Range Interpretation Comments Comment2 (test code = Comment2) Sliding Scale [facility] GLUCOSE [id number] 23:43:00 Test Item Value Reference Range Interpretation Comments Gluc POC Lifscn (test code = Gluc POC 167 70-99 H Lifscn) [facility] GLUCOSE [id number] 23:43:00 Test Item Value Reference Range Interpretation Comments Comment1 (test code = Comment1) Notify RN/ [facility] GLUCOSE [id number] 23:43:00 Test Item Value Reference Range Interpretation Comments Comment2 (test code = Comment2) Sliding Scale [facility] GLUCOSE [id number] 23:43:00 Test Item Value Reference Range Interpretation Comments Gluc POC Lifscn (test code = Gluc POC 167 70-99 H Lifscn) [facility] [id number] 23:43:00 Test Item Value Reference Range Interpretation Comments Comment1 (test code = Comment1) Notify RN/ [facility] GLU[facility]SE [id number] 23:43:00 Test Item Value Reference Range Interpretation Comments Comment2 (test code = Comment2) Sliding Scale [facility] GLU[facility]SE [id number] 23:43:00 Test Item Value Reference Range Interpretation Comments Gluc POC Lifscn (test code = Gluc POC 167 70-99 H Lifscn) [facility] [id number] 23:43:00 Test Item Value Reference Range Interpretation Comments Comment1 (test code = Comment1) Notify RN/ [facility] GLUCOSE [id number] 23:43:00 Test Item Value Reference Range Interpretation Comments Comment2 (test code = Comment2) Sliding Scale [facility] GLU[facility]SE [id number] 17:40:00 Test Item Value Reference Range Interpretation Comments Gluc POC Lifscn (test code = Gluc POC 189 70-99 H Lifscn) [facility] GLU[facility]SE [id number] 17:40:00 Test Item Value Reference Range Interpretation Comments Comment1 (test code = Comment1) Notify RN/ [facility] GLUCOSE [id number] 17:40:00 Test Item Value Reference Range Interpretation Comments Comment2 (test code = Comment2) Sliding Scale [facility]SE [id number] 17:40:00 Test Item Value Reference Range Interpretation Comments Gluc POC Lifscn (test code = Gluc POC 189 70-99 H Lifscn) [facility] [id number] 17:40:00 Test Item Value Reference Range Interpretation Comments Comment1 (test code = Comment1) Notify RN/ [facility] GLUCOSE [id number] 17:40:00 Test Item Value Reference Range Interpretation Comments Comment2 (test code = Comment2) Sliding Scale [facility] GLU[facility]SE [id number] 17:40:00 Test Item Value Reference Range Interpretation Comments Gluc POC Lifscn (test code = Gluc POC 189 70-99 H Lifscn) [facility] GLUCOSE [id number] 17:40:00 Test Item Value Reference Range Interpretation Comments Comment1 (test code = Comment1) Notify RN/ [facility]SE [id number] 17:40:00 Test Item Value Reference Range Interpretation Comments Comment2 (test code = Comment2) Sliding Scale [facility] GLUCOSE [id number] 17:40:00 Test Item Value Reference Range Interpretation Comments Gluc POC Lifscn (test code = Gluc POC 189 70-99 H Lifscn) [facility] GLUCOSE [id number] 17:40:00 Test Item Value Reference Range Interpretation Comments Comment1 (test code = Comment1) Notify RN/ [facility] GLUCOSE [id number] 17:40:00 Test Item Value Reference Range Interpretation Comments Comment2 (test code = Comment2) Sliding Scale [facility] GLUCOSE [id number] 17:40:00 Test Item Value Reference Range Interpretation Comments Gluc POC Lifscn (test code = Gluc POC 189 70-99 H Lifscn) [facility] GLUCOSE [id number] 17:40:00 Test Item Value Reference Range Interpretation Comments Comment1 (test code = Comment1) Notify RN/ [facility] GLUCOSE [id number] 17:40:00 Test Item Value Reference Range Interpretation Comments Comment2 (test code = Comment2) Sliding Scale [facility] GLUCOSE [id number] 13:34:00 Test Item Value Reference Range Interpretation Comments Comment2 (test code = Comment2) Sliding Scale [facility]SE [id number] 13:34:00 Test Item Value Reference Range Interpretation Comments Gluc POC Lifscn (test code = Gluc POC 110 70-99 H Lifscn) [facility] GLUCOSE [id number] 13:34:00 Test Item Value Reference Range Interpretation Comments Comment1 (test code = Comment1) Notify RN/ [facility] GLUCOSE [id number] 13:34:00 Test Item Value Reference Range Interpretation Comments Comment2 (test code = Comment2) Sliding Scale [facility] GLUCOSE [id number] 13:34:00 Test Item Value Reference Range Interpretation Comments Gluc POC Lifscn (test code = Gluc POC 110 70-99 H Lifscn) [facility]annABRA[facility]USS[facility] GLUCOSE [id number] 13:34:00 Test Item Value Reference Range Interpretation Comments Comment1 (test code = Comment1) Notify TABATHA/ [facility] GLUCOSE [id number] 13:34:00 Test Item Value Reference Range Interpretation Comments Comment2 (test code = Comment2) Sliding Scale [facility]SE [id number] 13:34:00 Test Item Value Reference Range Interpretation Comments Gluc POC Lifscn (test code = Gluc POC 110 70-99 H Lifscn) [facility] GLUCOSE [id number] 13:34:00 Test Item Value Reference Range Interpretation Comments Comment1 (test code = Comment1) Notify TABATHA/ [facility] GLUCOSE [id number] 13:34:00 Test Item Value Reference Range Interpretation Comments Comment2 (test code = Comment2) Sliding Scale [facility] [id number] 13:34:00 Test Item Value Reference Range Interpretation Comments Gluc POC Lifscn (test code = Gluc POC 110 70-99 H Lifscn) [facility] GLUCOSE [id number] 13:34:00 Test Item Value Reference Range Interpretation Comments Comment1 (test code = Comment1) Notify TABATHA/ [facility] GLUCOSE [id number] 13:34:00 Test Item Value Reference Range Interpretation Comments Comment2 (test code = Comment2) Sliding Scale [facility] [id number] 13:34:00 Test Item Value Reference Range Interpretation Comments Gluc POC Lifscn (test code = Gluc POC 110 70-99 H Lifscn) [facility] GLUCOSE [id number] 13:34:00 Test Item Value Reference Range Interpretation Comments Comment1 (test code = Comment1) Notifcaron MAYS/ [facility] ClinicsVokpqxeFGCKSKFBW9416-49-61 00:00:00 Test Item Value Reference Range Interpretation Comments U Preg (test code = U Negative (11/28/2011 N Preg) 19:00:00) [facility] ClinicsZreujmmZRERFJMNTQ6165-76-48 00:00:00 Test Item Value Reference Range Interpretation Comments Micro? (test code = Performed (11/28/2011 N Micro?) 19:00:00) [facility] CenterWatzpdqIZBQMSRUOQ5220-71-81 00:00:00 Test Item Value Reference Range Interpretation Comments UA Sq Epi (test code Occasional /LPF N = UA Sq Epi) (11/28/2011 19:00:00) [facility] CenterYdzormiKOVDFLWYVC0245-64-12 00:00:00 Test Item Value Reference Range Interpretation Comments UA RBC (test None Seen See_Comment N [Automated mes pastor] code = UA RBC) (11/28/2011 The system wh ich 19:00:00) generated this result transmitted ref erence range: <=2. The reference range was not used to int erpret this result as normal/abnormal . [facility] CenterEeemdofAMYDTIPZUY0376-77-23 00:00:00 Test Item Value Reference Range Interpretation Comments UA WBC (test code Occasional See_Comment [Automate d message] The = UA WBC) system which ge nerated this result tra nsmitted reference range : <=5. The reference range was not used to interpr et this result as normal/abnormal . [facility] CenterKsryyhxVNAHBMXAYJ6703-99-13 00:00:00 Test Item Value Reference Range Interpretation Comments UA Protein (test code Negative mg/dL N = UA Protein) (11/28/2011 19:00:00) [facility] CenterPibnzxlTWZTHTISLV4342-55-10 00:00:00 Test Item Value Reference Range Interpretation Comments UA pH (test code = UA pH) 7.0 1 5.0-8.0 N [facility] CenterKjbjdapQRDGNKJLGM6088-01-35 00:00:00 Test Item Value Reference Range Interpretation Comments UA Spec Grav (test code = UA Spec 1.020 1 N Grav) [facility] CenterLvlqcbyCVROOIUFOY3644-33-76 00:00:00 Test Item Value Reference Range Interpretation Comments UA Turbidity (test code = Clear (11/28/2011 N UA Turbidity) 19:00:00) [facility] CenterBuatiokSSVDKVBQSY6978-56-98 00:00:00 Test Item Value Reference Range Interpretation Comments UA Color (test code = Yellow *NA*(11/28/2011 UA Color) 19:00:00) [facility] CenterGscchfdWNOLYYFWWF8013-98-80 00:00:00 Test Item Value Reference Range Interpretation Comments UA Urobilinogen (test code = UA 0.2 0.1-1.0 N Urobilinogen) [facility] CenterLgzchipGIXINBSSVZ8129-60-25 00:00:00 Test Item Value Reference Range Interpretation Comments UA Blood (test code = Negative (11/28/2011 N UA Blood) 19:00:00) [facility] CenterMjingyrGMQLDAISTM2946-97-28 00:00:00 Test Item Value Reference Range Interpretation Comments UA Bili (test code = Negative *NA*(11/28/2011 UA Bili) 19:00:00) [facility] CenterEqppqwbXGTFUYTZFL2122-59-61 00:00:00 Test Item Value Reference Range Interpretation Comments UA Ketones (test code = >=80 mg/dL A UA Ketones) *ABN*(11/28/2011 19:00:00) [facility] CenterFjyqdseIWNSLVKNJB0924-75-58 00:00:00 Test Item Value Reference Range Interpretation Comments UA Glucose (test code = >=1000 mg/dL A UA Glucose) *ABN*(11/28/2011 19:00:00) [facility] CenterYdcloqoBLZJSVLETU7103-00-19 00:00:00 Test Item Value Reference Range Interpretation Comments UA Nitrite (test code Negative (11/28/2011 N = UA Nitrite) 19:00:00) [facility]icsJyuuagfUWCLRDBYQO9985-70-89 00:00:00 Test Item Value Reference Range Interpretation Comments UA Leuk Est (test Negative (11/28/2011 N code = UA Leuk Est) 19:00:00) [facility]icsOvfgdepJOEKKGETL3803-84-61 00:00:00 Test Item Value Reference Range Interpretation Comments U Preg (test code = U Negative (11/28/2011 N Preg) 19:00:00) [facility]icsEmgvfwyKAUWHNABPR7860-32-15 00:00:00 Test Item Value Reference Range Interpretation Comments Micro? (test code = Performed (11/28/2011 N Micro?) 19:00:00) [facility] CenterCsuezytRGNHZGFSKA9677-63-05 00:00:00 Test Item Value Reference Range Interpretation Comments UA Sq Epi (test code Occasional /LPF N = UA Sq Epi) (11/28/2011 19:00:00) [facility] CenterXjlzvhpOTUQYZEKPY5444-71-15 00:00:00 Test Item Value Reference Range Interpretation Comments UA RBC (test None Seen See_Comment N [Automated mes pastor] code = UA RBC) (11/28/2011 The system wh ich 19:00:00) generated this result transmitted ref erence range: <=2. The reference range was not used to int erpret this result as normal/abnormal . [facility] CenterRszwiwkOPEKMFWZON6217-91-43 00:00:00 Test Item Value Reference Range Interpretation Comments UA WBC (test code Occasional See_Comment [Automate d message] The = UA WBC) system which ge nerated this result tra nsmitted reference range : <=5. The reference range was not used to interpr et this result as normal/abnormal . [facility] CenterXjxzkqqNPFYXWTJZF9393-48-73 00:00:00 Test Item Value Reference Range Interpretation Comments UA Protein (test code Negative mg/dL N = UA Protein) (11/28/2011 19:00:00) [facility] CenterJnbskytQBJEBXKUUS7763-70-99 00:00:00 Test Item Value Reference Range Interpretation Comments UA pH (test code = UA pH) 7.0 1 5.0-8.0 N [facility] CenterEoecyonGMPBQEUERS7489-09-44 00:00:00 Test Item Value Reference Range Interpretation Comments UA Spec Grav (test code = UA Spec 1.020 1 N Grav) [facility] CenterMxlmkizTLRDTAYDRA9409-12-91 00:00:00 Test Item Value Reference Range Interpretation Comments UA Turbidity (test code = Clear (11/28/2011 N UA Turbidity) 19:00:00) [facility] CenterBlcnevlQOGJHJBBJV0508-78-83 00:00:00 Test Item Value Reference Range Interpretation Comments UA Color (test code = Yellow *NA*(11/28/2011 UA Color) 19:00:00) [facility] CenterOtxwdmvVFLAOGWCOI1616-49-33 00:00:00 Test Item Value Reference Range Interpretation Comments UA Urobilinogen (test code = UA 0.2 0.1-1.0 N Urobilinogen) [facility] CenterCtqfcumZEPXUNWVGE0115-14-79 00:00:00 Test Item Value Reference Range Interpretation Comments UA Blood (test code = Negative (11/28/2011 N UA Blood) 19:00:00) [facility] CenterHtgwtjaHSWITGJCBR5052-97-21 00:00:00 Test Item Value Reference Range Interpretation Comments UA Bili (test code = Negative *NA*(11/28/2011 UA Bili) 19:00:00) [facility] CenterUkhbarcSWTDSKAZZR2831-46-26 00:00:00 Test Item Value Reference Range Interpretation Comments UA Ketones (test code = >=80 mg/dL A UA Ketones) *ABN*(11/28/2011 19:00:00) [facility] CenterLhiirkiJKULPZSTOO0060-19-78 00:00:00 Test Item Value Reference Range Interpretation Comments UA Glucose (test code = >=1000 mg/dL A UA Glucose) *ABN*(11/28/2011 19:00:00) [facility] CenterWrejterTULISNOBYX5449-74-34 00:00:00 Test Item Value Reference Range Interpretation Comments UA Nitrite (test code Negative (11/28/2011 N = UA Nitrite) 19:00:00) [facility] CenterYotjpyrMNBZXIAELP6163-52-44 00:00:00 Test Item Value Reference Range Interpretation Comments UA Leuk Est (test Negative (11/28/2011 N code = UA Leuk Est) 19:00:00) [facility] CenterDdlxaihJHSNERWIG3721-90-73 00:00:00 Test Item Value Reference Range Interpretation Comments U Preg (test code = U Negative (11/28/2011 N Preg) 19:00:00) [facility] CenterXccxrpmIEXAMGPEEE8345-51-46 00:00:00 Test Item Value Reference Range Interpretation Comments Micro? (test code = Performed (11/28/2011 N Micro?) 19:00:00) [facility] CenterXpdqhpmZZMKFHLANS2470-88-31 00:00:00 Test Item Value Reference Range Interpretation Comments UA Sq Epi (test code Occasional /LPF N = UA Sq Epi) (11/28/2011 19:00:00) [facility] CenterGdjafzgWWSQZVGLPC7686-87-76 00:00:00 Test Item Value Reference Range Interpretation Comments UA RBC (test None Seen See_Comment N [Automated mes pastor] code = UA RBC) (11/28/2011 The system wh ich 19:00:00) generated this result transmitted ref erence range: <=2. The reference range was not used to int erpret this result as normal/abnormal . [facility] CenterWogeuepGQNNFXHTLQ5197-44-20 00:00:00 Test Item Value Reference Range Interpretation Comments UA WBC (test code Occasional See_Comment [Automate d message] The = UA WBC) system which ge nerated this result tra nsmitted reference range : <=5. The reference range was not used to interpr et this result as normal/abnormal . [facility] TylerNxhulusTJAIQCOQQO9864-76-34 00:00:00 Test Item Value Reference Range Interpretation Comments UA Protein (test code Negative mg/dL N = UA Protein) (11/28/2011 19:00:00) [facility] TylerJxdzmhoJFGOJXOBXU9049-01-20 00:00:00 Test Item Value Reference Range Interpretation Comments UA pH (test code = UA pH) 7.0 1 5.0-8.0 N [facility] TylerEpkmuklHRYLTJLAQS9316-22-26 00:00:00 Test Item Value Reference Range Interpretation Comments UA Spec Grav (test code = UA Spec 1.020 1 N Grav) [facility] TylerPjoqedmHTOTRUBXJS4002-68-67 00:00:00 Test Item Value Reference Range Interpretation Comments UA Turbidity (test code = Clear (11/28/2011 N UA Turbidity) 19:00:00) [facility] TylerSybmgxdCCEJXWMDQL5335-97-43 00:00:00 Test Item Value Reference Range Interpretation Comments UA Color (test code = Yellow *NA*(11/28/2011 UA Color) 19:00:00) [facility] TylerWjjxbreFJEHGYCLNR5446-89-95 00:00:00 Test Item Value Reference Range Interpretation Comments UA Urobilinogen (test code = UA 0.2 0.1-1.0 N Urobilinogen) [facility] TylerKpyscsbSRGUVNWTBM8579-76-59 00:00:00 Test Item Value Reference Range Interpretation Comments UA Blood (test code = Negative (11/28/2011 N UA Blood) 19:00:00) [facility] CenterEdblxqfBVKGTMHGBT3045-78-19 00:00:00 Test Item Value Reference Range Interpretation Comments UA Bili (test code = Negative *NA*(11/28/2011 UA Bili) 19:00:00) [facility] CenterNwvdhiqSAZBUUYJBF2086-70-67 00:00:00 Test Item Value Reference Range Interpretation Comments UA Ketones (test code = >=80 mg/dL A UA Ketones) *ABN*(11/28/2011 19:00:00) [facility] CenterZiitsmpQMTEPAWLHF7463-75-64 00:00:00 Test Item Value Reference Range Interpretation Comments UA Glucose (test code = >=1000 mg/dL A UA Glucose) *ABN*(11/28/2011 19:00:00) [facility] CenterGjudpyoBBLXIOFXEQ4551-70-10 00:00:00 Test Item Value Reference Range Interpretation Comments UA Nitrite (test code Negative (11/28/2011 N = UA Nitrite) 19:00:00) [facility]icsJlslactIRYCJVKVOS1911-86-64 00:00:00 Test Item Value Reference Range Interpretation Comments UA Leuk Est (test Negative (11/28/2011 N code = UA Leuk Est) 19:00:00) [facility]icsWpsntpqMOMQBYTAG0325-54-31 00:00:00 Test Item Value Reference Range Interpretation Comments U Preg (test code = U Negative (11/28/2011 N Preg) 19:00:00) [facility] CenterJppyllkPWTEZPILHO8634-94-51 00:00:00 Test Item Value Reference Range Interpretation Comments Micro? (test code = Performed (11/28/2011 N Micro?) 19:00:00) [facility] CenterLpyliroASNQUOLTGS9184-84-18 00:00:00 Test Item Value Reference Range Interpretation Comments UA Sq Epi (test code Occasional /LPF N = UA Sq Epi) (11/28/2011 19:00:00) [facility] CenterEetbvynEJGKDSIHOG3657-29-54 00:00:00 Test Item Value Reference Range Interpretation Comments UA RBC (test None Seen See_Comment N [Automated mes pastor] code = UA RBC) (11/28/2011 The system ich 19:00:00) generated this result transmitted ref erence range: <=2. The reference range was not used to int erpret this result as normal/abnormal . [facility]icsNpxeikrADDWJIROLF1061-42-49 00:00:00 Test Item Value Reference Range Interpretation Comments UA WBC (test code Occasional See_Comment [Automate d message] The = UA WBC) system which ge nerated this result tra nsmitted reference range : <=5. The reference range was not used to interpr et this result as normal/abnormal . [facility]AlalwxaGGEFKRJHQJ4934-00-62 00:00:00 Test Item Value Reference Range Interpretation Comments UA Protein (test code Negative mg/dL N = UA Protein) (11/28/2011 19:00:00) [facility] CenterNswhlckUOJQMWCUQE2059-60-16 00:00:00 Test Item Value Reference Range Interpretation Comments UA pH (test code = UA pH) 7.0 1 5.0-8.0 N [facility] TylerUyebjfxSEBQDNSBTG9482-13-33 00:00:00 Test Item Value Reference Range Interpretation Comments UA Spec Grav (test code = UA Spec 1.020 1 N Grav) [facility] TylerJyqdpzeHYWHCGUEAL4594-99-18 00:00:00 Test Item Value Reference Range Interpretation Comments UA Turbidity (test code = Clear (11/28/2011 N UA Turbidity) 19:00:00) [facility] TylerKbfolvqJLYVIDMKYH0930-77-76 00:00:00 Test Item Value Reference Range Interpretation Comments UA Color (test code = Yellow *NA*(11/28/2011 UA Color) 19:00:00) [facility] TylerOqdlpkjHWAKNPUDUQ9656-90-23 00:00:00 Test Item Value Reference Range Interpretation Comments UA Urobilinogen (test code = UA 0.2 0.1-1.0 N Urobilinogen) [facility] TylerDwijjtkZAOOBDGQXY1330-84-24 00:00:00 Test Item Value Reference Range Interpretation Comments UA Blood (test code = Negative (11/28/2011 N UA Blood) 19:00:00) [facility] TylerYpvvpsmJJVLFDOKYN7007-54-48 00:00:00 Test Item Value Reference Range Interpretation Comments UA Bili (test code = Negative *NA*(11/28/2011 UA Bili) 19:00:00) [facility] TylerEwzzcxjARDAMSYGJU7391-61-90 00:00:00 Test Item Value Reference Range Interpretation Comments UA Ketones (test code = >=80 mg/dL A UA Ketones) *ABN*(11/28/2011 19:00:00) [facility] TylerLvzxdcvNWOCHXFLYA1520-66-52 00:00:00 Test Item Value Reference Range Interpretation Comments UA Glucose (test code = >=1000 mg/dL A UA Glucose) *ABN*(11/28/2011 19:00:00) [facility] TylerKfgtnjmMQVNICRNEI5665-18-72 00:00:00 Test Item Value Reference Range Interpretation Comments UA Nitrite (test code Negative (11/28/2011 N = UA Nitrite) 19:00:00) [facility] TylerJagkzldAANHBQEYIB6773-29-55 00:00:00 Test Item Value Reference Range Interpretation Comments UA Leuk Est (test Negative (11/28/2011 N code = UA Leuk Est) 19:00:00) [facility]icsPdtnrozRBNLPIZRG5540-18-88 00:00:00 Test Item Value Reference Range Interpretation Comments U Preg (test code = U Negative (11/28/2011 N Preg) 19:00:00) [facility]icsDtysdlvBHHPWCWEKO2008-27-68 00:00:00 Test Item Value Reference Range Interpretation Comments Micro? (test code = Performed (11/28/2011 N Micro?) 19:00:00) [facility]icsClntmfnOZSUQBQELK6689-72-01 00:00:00 Test Item Value Reference Range Interpretation Comments UA Sq Epi (test code Occasional /LPF N = UA Sq Epi) (11/28/2011 19:00:00) [facility]icsWgaiblxMDNVHRWVJM8958-63-92 00:00:00 Test Item Value Reference Range Interpretation Comments UA RBC (test None Seen See_Comment N [Automated mes pastor] code = UA RBC) (11/28/2011 The system ich 19:00:00) generated this result transmitted ref erence range: <=2. The reference range was not used to int erpret this result as normal/abnormal . [facility]icsEbkhxscMNISTZSRDH5808-81-49 00:00:00 Test Item Value Reference Range Interpretation Comments UA WBC (test code Occasional See_Comment [Automate d message] The = UA WBC) system which ge nerated this result tra nsmitted reference range : <=5. The reference range was not used to interpr et this result as normal/abnormal . [facility]icsXodzgziZOTHSNZHQL1863-00-98 00:00:00 Test Item Value Reference Range Interpretation Comments UA Protein (test code Negative mg/dL N = UA Protein) (11/28/2011 19:00:00) [facility]icsBaejghhZTHVGWVIZH9926-47-68 00:00:00 Test Item Value Reference Range Interpretation Comments UA pH (test code = UA pH) 7.0 1 5.0-8.0 N [facility]icsLfeactbVMYGQVKBTW2344-07-53 00:00:00 Test Item Value Reference Range Interpretation Comments UA Spec Grav (test code = UA Spec 1.020 1 N Grav) [facility] CenterEevoltfKWOUKKLHBR6037-16-59 00:00:00 Test Item Value Reference Range Interpretation Comments UA Turbidity (test code = Clear (11/28/2011 N UA Turbidity) 19:00:00) [facility]LabifguFXBDJTWNOA7375-47-16 00:00:00 Test Item Value Reference Range Interpretation Comments UA Color (test code = Yellow *NA*(11/28/2011 UA Color) 19:00:00) [facility] TylerTtzfwwmDQRDISXWDB4142-42-39 00:00:00 Test Item Value Reference Range Interpretation Comments UA Urobilinogen (test code = UA 0.2 0.1-1.0 N Urobilinogen) [facility] CenterWwmqvpmCCXNCLNLYK2925-77-87 00:00:00 Test Item Value Reference Range Interpretation Comments UA Blood (test code = Negative (11/28/2011 N UA Blood) 19:00:00) [facility] CenterSpqwzkkGGUYSOGAVR2454-64-37 00:00:00 Test Item Value Reference Range Interpretation Comments UA Bili (test code = Negative *NA*(11/28/2011 UA Bili) 19:00:00) [facility] TylerIcwsklnKGFHQDPWYG7577-05-29 00:00:00 Test Item Value Reference Range Interpretation Comments UA Ketones (test code = >=80 mg/dL A UA Ketones) *ABN*(11/28/2011 19:00:00) [facility] CenterZbtscuyNKXZCPGFXR7093-48-43 00:00:00 Test Item Value Reference Range Interpretation Comments UA Glucose (test code = >=1000 mg/dL A UA Glucose) *ABN*(11/28/2011 19:00:00) [facility] TylerDncbympYKCDOFFHHG4548-72-78 00:00:00 Test Item Value Reference Range Interpretation Comments UA Nitrite (test code Negative (11/28/2011 N = UA Nitrite) 19:00:00) [facility] CenterUyemdykYUUEVESLWK0044-00-11 00:00:00 Test Item Value Reference Range Interpretation Comments UA Leuk Est (test Negative (11/28/2011 N code = UA Leuk Est) 19:00:00) [facility] AustinFdzvflmWKNXQSQGP0566-05-67 20:41:00 Test Item Value Reference Range Interpretation Comments pO2 Roberth (test code = pO2 Roberth) 60 20-49 H [facility] AustinTrmxsdaHHFTVAGXS8640-30-28 20:41:00 Test Item Value Reference Range Interpretation Comments pCO2 Roberth (test code = pCO2 Roberth) 41 38-52 N [facility] AustinMzryesmWZVUFWHNO9712-76-45 20:41:00 Test Item Value Reference Range Interpretation Comments pH Roberth (test code = pH Roberth) 7.45 7.28-7.42 H [facility] AustinUhcbjxwVWWMDEIWP7733-23-70 20:41:00 Test Item Value Reference Range Interpretation Comments Temp Roberth (test code = Temp Roberth) 37.0 [facility] AustinHtgsljwXWIGSSGJX8290-57-67 20:41:00 Test Item Value Reference Range Interpretation Comments O2 Sat Roberth (test code = O2 Sat Roberth) 92.0 40.0-70.0 H [facility] AustinJhyudcbSWWWDSGKV0903-83-57 20:41:00 Test Item Value Reference Range Interpretation Comments BE Roberth (test code = 4 See_Comment H [Automa rohit message] The BE Roberth) system which ge nerated this result transmit rohit reference range : <=2. The reference range was not used to interpr et this result as reji l/abnormal. [facility] AustinDevqldlXERXPTFXQ0911-97-50 20:41:00 Test Item Value Reference Range Interpretation Comments HCO3 Roberth (test code = HCO3 Roberth) 28.5 22.0-26.0 H [facility] AustinCrvcqxlNYWEQGOLO3700-19-59 20:41:00 Test Item Value Reference Range Interpretation Comments pO2 Roberth (test code = pO2 Roberth) 60 20-49 H [facility] AustinNbwexhkZGOMRKDKL0592-64-00 20:41:00 Test Item Value Reference Range Interpretation Comments pCO2 Roberth (test code = pCO2 Roberth) 41 38-52 N [facility] AustinZfpqoraPWZNMALKS6741-29-39 20:41:00 Test Item Value Reference Range Interpretation Comments pH Roberth (test code = pH Roberth) 7.45 7.28-7.42 H [facility] AustinOjaehnzTAABJDBUE7795-97-43 20:41:00 Test Item Value Reference Range Interpretation Comments Temp Roberth (test code = Temp Roberth) 37.0 [facility] AustinVckmqwkEHEEGNULE7005-21-79 20:41:00 Test Item Value Reference Range Interpretation Comments O2 Sat Roberth (test code = O2 Sat Roberth) 92.0 40.0-70.0 H [facility] AustinVbjbspvXBNSPNURV6981-14-34 20:41:00 Test Item Value Reference Range Interpretation Comments BE Roberth (test code = 4 See_Comment H [Automa rohit message] The BE Roberth) system which ge nerated this result transmit rohit reference range : <=2. The reference range was not used to interpr et this result as reji l/abnormal. [facility] AustinWapljppJZUTVKPJZ5201-75-74 20:41:00 Test Item Value Reference Range Interpretation Comments HCO3 Roberth (test code = HCO3 Roberth) 28.5 22.0-26.0 H [facility] AustinLjkhzbbWCOTFMBIE9392-16-75 20:41:00 Test Item Value Reference Range Interpretation Comments pO2 Roberth (test code = pO2 Roberth) 60 20-49 H [facility] AustinYwvxvbhMJVQMUTIP5963-81-81 20:41:00 Test Item Value Reference Range Interpretation Comments pCO2 Roberth (test code = pCO2 Roberth) 41 38-52 N [facility] AustinCxprkdrKEBCADQLX6677-17-28 20:41:00 Test Item Value Reference Range Interpretation Comments pH Roberth (test code = pH Roberth) 7.45 7.28-7.42 H [facility] AustinPtllbnvMKQTAOZXQ2284-91-27 20:41:00 Test Item Value Reference Range Interpretation Comments Temp Roberth (test code = Temp Roberth) 37.0 [facility] AustinSlntbmtXHTNXMJDF4439-31-91 20:41:00 Test Item Value Reference Range Interpretation Comments O2 Sat Roberth (test code = O2 Sat Roberth) 92.0 40.0-70.0 H [facility] AustinUgucyqzIZSWYRPQZ1127-00-21 20:41:00 Test Item Value Reference Range Interpretation Comments BE Roberth (test code = 4 See_Comment H [Automa rohit message] The BE Roberth) system which ge nerated this result transmit rohit reference range : <=2. The reference range was not used to interpr et this result as reji l/abnormal. [facility] AustinRzjgkjfNWVWHUNIY7892-77-29 20:41:00 Test Item Value Reference Range Interpretation Comments HCO3 Roberth (test code = HCO3 Roberth) 28.5 22.0-26.0 H [facility] AustinEevgsuzHNDFJYKSJ8904-06-58 20:41:00 Test Item Value Reference Range Interpretation Comments pO2 Roberth (test code = pO2 Roberth) 60 20-49 H [facility] AustinOakqukgLCZKAXEJA1151-21-74 20:41:00 Test Item Value Reference Range Interpretation Comments pCO2 Roberth (test code = pCO2 Roberth) 41 38-52 N [facility] AustinBolnhzkUOSIKDYKO6994-71-22 20:41:00 Test Item Value Reference Range Interpretation Comments pH Roberth (test code = pH Roberth) 7.45 7.28-7.42 H [facility] AustinCfgzpgvMBTXFUUXJ6291-84-94 20:41:00 Test Item Value Reference Range Interpretation Comments Temp Roberth (test code = Temp Roberth) 37.0 [facility] AustinCjdajytWJCSZQRJP5478-79-16 20:41:00 Test Item Value Reference Range Interpretation Comments O2 Sat Roberth (test code = O2 Sat Roberth) 92.0 40.0-70.0 H [facility] AustinUnomgxmEVCJLNLOS1753-90-70 20:41:00 Test Item Value Reference Range Interpretation Comments BE Roberth (test code = 4 See_Comment H [Automa rohit message] The BE Roberth) system which ge nerated this result transmit rohit reference range : <=2. The reference range was not used to interpr et this result as reji l/abnormal. [facility] AustinImtaoroBQDIACSFP9035-86-74 20:41:00 Test Item Value Reference Range Interpretation Comments HCO3 Roberth (test code = HCO3 Roberth) 28.5 22.0-26.0 H [facility] AustinVjdacsiMIIFEPGTX6737-80-16 20:41:00 Test Item Value Reference Range Interpretation Comments pO2 Roberth (test code = pO2 Roberth) 60 20-49 H [facility] AustinEdgarghZBNUIKOIR8216-16-53 20:41:00 Test Item Value Reference Range Interpretation Comments pCO2 Roberth (test code = pCO2 Roberth) 41 38-52 N [facility] AustinKabspojRQGWPPNXX4539-29-09 20:41:00 Test Item Value Reference Range Interpretation Comments pH Roberth (test code = pH Roberth) 7.45 7.28-7.42 H [facility] AustinZrsekuzVPNPODNCL8370-26-96 20:41:00 Test Item Value Reference Range Interpretation Comments Temp Roberth (test code = Temp Roberth) 37.0 [facility] AustinAycgerqKLCFIMYQN4162-11-68 20:41:00 Test Item Value Reference Range Interpretation Comments O2 Sat Roberth (test code = O2 Sat Roberth) 92.0 40.0-70.0 H [facility] AustinMuntuuiJAIYEJEQS4018-98-76 20:41:00 Test Item Value Reference Range Interpretation Comments BE Roberth (test code = 4 See_Comment H [Automa rohit message] The BE Roberth) system which ge nerated this result transmit rohit reference range : <=2. The reference range was not used to interpr et this result as reji l/abnormal. [facility] AustinUnykkyjCADBFQDXV5875-08-04 20:41:00 Test Item Value Reference Range Interpretation Comments HCO3 Roberth (test code = HCO3 Roberth) 28.5 22.0-26.0 H [facility] AustinCtbzretOPXVHUFSJ8819-61-23 20:00:00 Test Item Value Reference Range Interpretation Comments Lactic Acid Lvl (test code = Lactic 1.6 0.5-2.2 N Acid Lvl) [facility] AustinWbhbpmfLOHVWGLOC8333-98-90 20:00:00 Test Item Value Reference Range Interpretation Comments Lipase Lvl (test code = Lipase Lvl) 125 73-393 N [facility] AustinRinatzmGPCFPAHEN5741-63-54 20:00:00 Test Item Value Reference Range Interpretation Comments Albumin Lvl (test code = Albumin Lvl) 4.2 3.5-5.0 N [facility] AustinAeboebkTONDFTOHJ5599-52-09 20:00:00 Test Item Value Reference Range Interpretation Comments CO2 (test code = CO2) 23 24-32 L [facility] AustinSpglxqgWZSMUJGLF6595-24-96 20:00:00 Test Item Value Reference Range Interpretation Comments Chloride Lvl (test code = Chloride Lvl) 98 95-109 N [facility] AustinYoqigpzBVRSRLXZW1568-78-37 20:00:00 Test Item Value Reference Range Interpretation Comments Potassium Lvl (test code = Potassium 3.8 3.5-5.1 N Lvl) [facility] AustinPtqxspvUSBEYSQTX0787-05-31 20:00:00 Test Item Value Reference Range Interpretation Comments Sodium Lvl (test code = Sodium Lvl) 138 135-145 N [facility] AustinBvcdlidTOGHTROTE4072-40-38 20:00:00 Test Item Value Reference Range Interpretation Comments Creatinine Lvl (test code = Creatinine 0.7 0.5-1.4 N Lvl) [facility] AustinZiheszsILSEWEUBG2199-97-27 20:00:00 Test Item Value Reference Range Interpretation Comments BUN (test code = BUN) 9 7-22 N [facility] AustinXzdordhPJSDMRBXS8248-30-31 20:00:00 Test Item Value Reference Range Interpretation Comments Glucose Lvl (test code = Glucose Lvl) 269 70-99 H [facility] AustinRqyeyyqHTYTTKSHY2436-78-97 20:00:00 Test Item Value Reference Range Interpretation Comments B/C Ratio (test code = B/C Ratio) 13 6-25 N [facility] AustinAkuqymwPPKNDJHFU0522-87-78 20:00:00 Test Item Value Reference Range Interpretation Comments AGAP (test code = AGAP) 20.8 10.0-20.0 H [facility] AustinArtnknrMBILZVVKB8494-63-95 20:00:00 Test Item Value Reference Range Interpretation Comments Calcium Lvl (test code = Calcium Lvl) 9.3 8.5-10.5 N [facility] AustinSiqkrdfSBGTZYBZP7373-58-12 20:00:00 Test Item Value Reference Range Interpretation Comments Total Protein (test code = Total 6.7 6.4-8.4 N Protein) [facility] AustinJrgyarqDBMJSPWEP8507-69-74 20:00:00 Test Item Value Reference Range Interpretation Comments A/G Ratio (test code = A/G Ratio) 1.7 0.7-1.6 H [facility] AustinOfygulvCPGYOMVTW0749-89-14 20:00:00 Test Item Value Reference Range Interpretation Comments Globulin (test code = Globulin) 2.5 2.0-4.0 N [facility] AustinPoddpnpGYSIOWYPS5559-46-02 20:00:00 Test Item Value Reference Range Interpretation Comments AST (test code = AST) 18 See_Comment N [Auto mated message] The system which ge nerated this result transmit rohit reference range : <=37. The reference range was not used to interpr et this result as reji l/abnormal. [facility] AustinOspavubAWXPXVOXX7109-86-08 20:00:00 Test Item Value Reference Range Interpretation Comments Alk Phos (test code = Alk Phos) 62 39-136 N [facility] AustinJhsymaoHFURRMGOG6621-12-85 20:00:00 Test Item Value Reference Range Interpretation Comments ALT (test code = ALT) 32 See_Comment N [Auto mated message] The system which ge nerated this result transmit rohit reference range : <=65. The reference range was not used to interpr et this result as reji l/abnormal. [facility] AustinQdtxfpwRSCVOZZSQ0713-01-67 20:00:00 Test Item Value Reference Range Interpretation Comments Bili Total (test code = Bili Total) 0.7 0.2-1.3 N [facility]anoWjgmltaAEGEJWHTKU7778-96-28 20:00:00 Test Item Value Reference Range Interpretation Comments Anisocyte (test code = 1+ *ABN*(11/28/2011 A Anisocyte) 15:00:00) [facility]anoFvlfevvGZAIGQCHTC4437-18-84 20:00:00 Test Item Value Reference Range Interpretation Comments Monocytes # (test code 0.1 See_Comment N [Aut omated message] The = Monocytes #) system which generated this result tra nsmitted reference range : <=0.8. The reference r leo was not used to int erpret this result as normal/abnormal . [facility]anoCakzmehYDJCSYXRML2119-51-38 20:00:00 Test Item Value Reference Range Interpretation Comments Eosinophils # (test code 0.0 See_Comment N [A utomated message] The = Eosinophils #) system whic h generated this result tra nsmitted reference range : <=0.5. The reference r leo was not used to int erpret this result as normal/abnormal . [facility]anoIkvngtyEQJSTDTPAK6462-90-34 20:00:00 Test Item Value Reference Range Interpretation Comments Basophils # (test code 0.0 See_Comment N [Aut omated message] The = Basophils #) system which generated this result tra nsmitted reference range : <=0.2. The reference r leo was not used to int erpret this result as normal/abnormal . [facility]anoTncgbwzBBEJMGPNDT1274-76-33 20:00:00 Test Item Value Reference Range Interpretation Comments Neut Vac (test code = Slight *ABN*(11/28/2011 A Neut Vac) 15:00:00) [facility]anoAxotbchKWDCSPGCUZ7356-59-51 20:00:00 Test Item Value Reference Range Interpretation Comments Large Plt (test code = Slight *ABN*(11/28/2011 A Large Plt) 15:00:00) [facility]anoStimnaaMPXVLOIGKU9056-66-50 20:00:00 Test Item Value Reference Range Interpretation Comments Segs-Bands # (test code = Segs-Bands #) 5.7 1.5-8.1 N [facility]anoOrnypupAATHIXPKSX3561-34-62 20:00:00 Test Item Value Reference Range Interpretation Comments Lymphocytes # (test code = Lymphocytes 0.8 1.0-5.5 L #) [facility]anoLpsnuhbSRPQMSCBNZ8480-57-82 20:00:00 Test Item Value Reference Range Interpretation Comments Eosinophils (test code = 0.2 See_Comment N [A utomated message] The Eosinophils) system which ge nerated this result tra nsmitted reference range : <=4.0. The reference r leo was not used to int erpret this result as normal/abnormal . [facility]anoBvhhllyQHNACBIBWR8849-56-21 20:00:00 Test Item Value Reference Range Interpretation Comments Basophils (test code = 0.0 See_Comment N [Aut omated message] The Basophils) system which ge nerated this result tra nsmitted reference range : <=1.0. The reference r leo was not used to int erpret this result as normal/abnormal . [facility]anoQkjksafEKLCNGWUVI0033-71-01 20:00:00 Test Item Value Reference Range Interpretation Comments Monocytes (test code = Monocytes) 1.9 2.0-12.0 L [facility]anoZuzgdutZSMFTVSAAK1122-43-49 20:00:00 Test Item Value Reference Range Interpretation Comments Segs (test code = Segs) 86.2 45.0-75.0 H [facility]anoLugiqdxZKAOMWLFII8153-71-59 20:00:00 Test Item Value Reference Range Interpretation Comments Lymphocytes (test code = Lymphocytes) 11.7 20.0-40.0 L [facility]anoSdwoodrHTYCIFOKFE5904-33-50 20:00:00 Test Item Value Reference Range Interpretation Comments MPV (test code = MPV) 10.8 7.4-10.4 H [facility]anoTuhgvrwSXBNZODVGT5467-38-76 20:00:00 Test Item Value Reference Range Interpretation Comments Platelet (test code = Platelet) 161 133-450 N [facility]anoUpywbzpMIPCUJQZJG4991-33-92 20:00:00 Test Item Value Reference Range Interpretation Comments MCHC (test code = MCHC) 35.6 32.0-36.0 N [facility]anoWztkoenKTNHBMDAIN7962-71-42 20:00:00 Test Item Value Reference Range Interpretation Comments RDW (test code = RDW) 12.4 11.5-14.5 N [facility]anoWrwhknkCHPNYSBJSK0416-54-56 20:00:00 Test Item Value Reference Range Interpretation Comments MCH (test code = MCH) 30.7 pg 27.0-31.0 N [facility]anoParktwsUOLZFXQPEM6917-39-43 20:00:00 Test Item Value Reference Range Interpretation Comments MCV (test code = MCV) 86.1 81.0-99.0 N [facility]anoNelynnhMWKEJOSLRH8773-59-85 20:00:00 Test Item Value Reference Range Interpretation Comments Hct (test code = Hct) 33.6 36.0-48.0 L [facility]anoNlsggvuFBNAYWQJUU5873-79-55 20:00:00 Test Item Value Reference Range Interpretation Comments Hgb (test code = Hgb) 12.0 12.0-16.0 N [facility]anoYwbukerJLBAITNQZF2824-51-85 20:00:00 Test Item Value Reference Range Interpretation Comments RBC (test code = RBC) 3.90 4.20-5.40 L [facility]anoEhuiaqpYGKGGYBRSK3088-74-91 20:00:00 Test Item Value Reference Range Interpretation Comments WBC (test code = WBC) 6.6 3.7-10.4 N [facility] AustinTskyifoQJWQDOAPR5286-52-15 20:00:00 Test Item Value Reference Range Interpretation Comments Lactic Acid Lvl (test code = Lactic 1.6 0.5-2.2 N Acid Lvl) [facility] AustinMybhgkdRMEMNLEVF8534-89-14 20:00:00 Test Item Value Reference Range Interpretation Comments Lipase Lvl (test code = Lipase Lvl) 125 73-393 N [facility] AustinSjnzqhpJZKAJRBKG7442-83-06 20:00:00 Test Item Value Reference Range Interpretation Comments Albumin Lvl (test code = Albumin Lvl) 4.2 3.5-5.0 N [facility] AustinVuhycejPTDSASHGL6067-98-45 20:00:00 Test Item Value Reference Range Interpretation Comments CO2 (test code = CO2) 23 24-32 L [facility] AustinZpgvtglETADKOBTT8271-74-37 20:00:00 Test Item Value Reference Range Interpretation Comments Chloride Lvl (test code = Chloride Lvl) 98 95-109 N [facility] AustinYeikqauOYNNMMJTZ5596-83-04 20:00:00 Test Item Value Reference Range Interpretation Comments Potassium Lvl (test code = Potassium 3.8 3.5-5.1 N Lvl) [facility] AustinCcgjkibQSGZWOAMZ8251-49-32 20:00:00 Test Item Value Reference Range Interpretation Comments Sodium Lvl (test code = Sodium Lvl) 138 135-145 N [facility] AustinFqubnuyEDMJVFSWT1880-11-54 20:00:00 Test Item Value Reference Range Interpretation Comments Creatinine Lvl (test code = Creatinine 0.7 0.5-1.4 N Lvl) [facility] AustinYxlhwunBCYQIRINS0545-64-12 20:00:00 Test Item Value Reference Range Interpretation Comments BUN (test code = BUN) 9 7-22 N [facility] AustinSfygjhsXNIRDVEDO0683-05-02 20:00:00 Test Item Value Reference Range Interpretation Comments Glucose Lvl (test code = Glucose Lvl) 269 70-99 H [facility] AustinUdleshtZNYTTOPLN1832-43-46 20:00:00 Test Item Value Reference Range Interpretation Comments B/C Ratio (test code = B/C Ratio) 13 6-25 N [facility] AustinWohzlqnYENBCIBIR5026-93-76 20:00:00 Test Item Value Reference Range Interpretation Comments AGAP (test code = AGAP) 20.8 10.0-20.0 H [facility] AustinAfymfuyCRUGAKLGL3269-08-42 20:00:00 Test Item Value Reference Range Interpretation Comments Calcium Lvl (test code = Calcium Lvl) 9.3 8.5-10.5 N [facility] AustinZzznxbaDNXDRVMPQ2684-82-85 20:00:00 Test Item Value Reference Range Interpretation Comments Total Protein (test code = Total 6.7 6.4-8.4 N Protein) [facility] AustinGkiltnpUYOORPTTA3284-91-17 20:00:00 Test Item Value Reference Range Interpretation Comments A/G Ratio (test code = A/G Ratio) 1.7 0.7-1.6 H [facility] AustinJziqyalYZJJNBNZS4615-18-61 20:00:00 Test Item Value Reference Range Interpretation Comments Globulin (test code = Globulin) 2.5 2.0-4.0 N [facility] AustinMmdemgvKFQSQOLZO5623-50-68 20:00:00 Test Item Value Reference Range Interpretation Comments AST (test code = AST) 18 See_Comment N [Auto mated message] The system which ge nerated this result transmit rohit reference range : <=37. The reference range was not used to interpr et this result as reji l/abnormal. [facility] AustinSdjypelZPNQQSXTY7919-80-70 20:00:00 Test Item Value Reference Range Interpretation Comments Alk Phos (test code = Alk Phos) 62 39-136 N [facility] AustinHpkmfinNSYCZLHRI2365-92-71 20:00:00 Test Item Value Reference Range Interpretation Comments ALT (test code = ALT) 32 See_Comment N [Auto mated message] The system which ge nerated this result transmit rohit reference range : <=65. The reference range was not used to interpr et this result as reji l/abnormal. [facility] AustinXetarkxWINUTZVSJ1845-32-64 20:00:00 Test Item Value Reference Range Interpretation Comments Bili Total (test code = Bili Total) 0.7 0.2-1.3 N [facility]QivagceDKCXNALLEB6238-60-94 20:00:00 Test Item Value Reference Range Interpretation Comments Anisocyte (test code = 1+ *ABN*(11/28/2011 A Anisocyte) 15:00:00) [facility]anoNhnmibeFYSUUSMWAT3810-67-38 20:00:00 Test Item Value Reference Range Interpretation Comments Monocytes # (test code 0.1 See_Comment N [Aut omated message] The = Monocytes #) system which generated this result tra nsmitted reference range : <=0.8. The reference r leo was not used to int erpret this result as normal/abnormal . [facility]anoDanjnxkCNUIIXUIYY6912-71-78 20:00:00 Test Item Value Reference Range Interpretation Comments Eosinophils # (test code 0.0 See_Comment N [A utomated message] The = Eosinophils #) system whic h generated this result tra nsmitted reference range : <=0.5. The reference r leo was not used to int erpret this result as normal/abnormal . [facility]anoMjbiazwKGZYTHLVOW3191-83-88 20:00:00 Test Item Value Reference Range Interpretation Comments Basophils # (test code 0.0 See_Comment N [Aut omated message] The = Basophils #) system which generated this result tra nsmitted reference range : <=0.2. The reference r leo was not used to int erpret this result as normal/abnormal . [facility]anoLfzuicnVYOVKHBIVT6621-09-36 20:00:00 Test Item Value Reference Range Interpretation Comments Neut Vac (test code = Slight *ABN*(11/28/2011 A Neut Vac) 15:00:00) [facility]anoIwswisiWPCVMRSRYJ5563-55-00 20:00:00 Test Item Value Reference Range Interpretation Comments Large Plt (test code = Slight *ABN*(11/28/2011 A Large Plt) 15:00:00) [facility]anoKcksjewZQYJCYTFDX4190-78-89 20:00:00 Test Item Value Reference Range Interpretation Comments Segs-Bands # (test code = Segs-Bands #) 5.7 1.5-8.1 N [facility]anoFubgthcMFYCAQZDMM5924-83-90 20:00:00 Test Item Value Reference Range Interpretation Comments Lymphocytes # (test code = Lymphocytes 0.8 1.0-5.5 L #) [facility]anoAxnpflsPPTMCPIYPK4056-81-50 20:00:00 Test Item Value Reference Range Interpretation Comments Eosinophils (test code = 0.2 See_Comment N [A utomated message] The Eosinophils) system which ge nerated this result tra nsmitted reference range : <=4.0. The reference r leo was not used to int erpret this result as normal/abnormal . [facility]anoQpfszafETMPCIKTKG2857-14-11 20:00:00 Test Item Value Reference Range Interpretation Comments Basophils (test code = 0.0 See_Comment N [Aut omated message] The Basophils) system which ge nerated this result tra nsmitted reference range : <=1.0. The reference r leo was not used to int erpret this result as normal/abnormal . [facility]anoSjbxcqlGEYKCBXOOG8483-35-10 20:00:00 Test Item Value Reference Range Interpretation Comments Monocytes (test code = Monocytes) 1.9 2.0-12.0 L [facility]anoGxhbhhiCSSEYAOVIS9985-13-90 20:00:00 Test Item Value Reference Range Interpretation Comments Segs (test code = Segs) 86.2 45.0-75.0 H [facility]anoRmwdsvkUIJXXAQTOU7454-48-45 20:00:00 Test Item Value Reference Range Interpretation Comments Lymphocytes (test code = Lymphocytes) 11.7 20.0-40.0 L [facility]anoIrnxrqkRELPUOIBSI7493-61-59 20:00:00 Test Item Value Reference Range Interpretation Comments MPV (test code = MPV) 10.8 7.4-10.4 H [facility]anoTdfrrocZAILJLXZTM9635-36-97 20:00:00 Test Item Value Reference Range Interpretation Comments Platelet (test code = Platelet) 161 133-450 N [facility]anoNtyvkojJFWPPJXBJA6776-39-11 20:00:00 Test Item Value Reference Range Interpretation Comments MCHC (test code = MCHC) 35.6 32.0-36.0 N [facility]anoQnehjytTVBYMEFWXA3551-07-22 20:00:00 Test Item Value Reference Range Interpretation Comments RDW (test code = RDW) 12.4 11.5-14.5 N [facility]anoFfisjxeVJKEVMWXLX4319-33-90 20:00:00 Test Item Value Reference Range Interpretation Comments MCH (test code = MCH) 30.7 pg 27.0-31.0 N [facility]anoNgjjwekVSLXIVGGUF4055-90-83 20:00:00 Test Item Value Reference Range Interpretation Comments MCV (test code = MCV) 86.1 81.0-99.0 N [facility]anoIqwfvhqTENCUBKNUC7939-30-08 20:00:00 Test Item Value Reference Range Interpretation Comments Hct (test code = Hct) 33.6 36.0-48.0 L [facility]anoVtrmnebEDHTPWUEWU6854-32-54 20:00:00 Test Item Value Reference Range Interpretation Comments Hgb (test code = Hgb) 12.0 12.0-16.0 N [facility]anoAqpmlnzFRMLKWHOFJ5157-30-10 20:00:00 Test Item Value Reference Range Interpretation Comments RBC (test code = RBC) 3.90 4.20-5.40 L [facility]anoUutyewqMHXHHALXTR0825-89-43 20:00:00 Test Item Value Reference Range Interpretation Comments WBC (test code = WBC) 6.6 3.7-10.4 N [facility] AustinJqzogkcZGCKACKBJ0551-34-53 20:00:00 Test Item Value Reference Range Interpretation Comments Lactic Acid Lvl (test code = Lactic 1.6 0.5-2.2 N Acid Lvl) [facility] AustinZxlzeiuSVWYPHJZY4413-83-12 20:00:00 Test Item Value Reference Range Interpretation Comments Lipase Lvl (test code = Lipase Lvl) 125 73-393 N [facility] AustinZqqcjwyVBNSKFRJV8256-47-34 20:00:00 Test Item Value Reference Range Interpretation Comments Albumin Lvl (test code = Albumin Lvl) 4.2 3.5-5.0 N [facility] AustinIwuvzcqHXMCHZFIK4278-27-22 20:00:00 Test Item Value Reference Range Interpretation Comments CO2 (test code = CO2) 23 24-32 L [facility] AustinZrqfhxuHWBWEHIWI0250-79-91 20:00:00 Test Item Value Reference Range Interpretation Comments Chloride Lvl (test code = Chloride Lvl) 98 95-109 N [facility] AustinJszmkeyFUXZZDERB9250-61-48 20:00:00 Test Item Value Reference Range Interpretation Comments Potassium Lvl (test code = Potassium 3.8 3.5-5.1 N Lvl) [facility] AustinGnwooweWEZWYTESC0463-44-16 20:00:00 Test Item Value Reference Range Interpretation Comments Sodium Lvl (test code = Sodium Lvl) 138 135-145 N [facility] AustinQdgyubmQNAAKOCVY5242-08-28 20:00:00 Test Item Value Reference Range Interpretation Comments Creatinine Lvl (test code = Creatinine 0.7 0.5-1.4 N Lvl) [facility] AustinSyunlpkVYLYAAYOA9006-22-86 20:00:00 Test Item Value Reference Range Interpretation Comments BUN (test code = BUN) 9 7-22 N [facility] AustinKtkyyzwHJOWCERWQ2314-47-04 20:00:00 Test Item Value Reference Range Interpretation Comments Glucose Lvl (test code = Glucose Lvl) 269 70-99 H [facility] AustinIzytblkLVWRVXNTY0431-28-71 20:00:00 Test Item Value Reference Range Interpretation Comments B/C Ratio (test code = B/C Ratio) 13 6-25 N [facility] AustinIaybskcXRTNJVUDU7930-02-04 20:00:00 Test Item Value Reference Range Interpretation Comments AGAP (test code = AGAP) 20.8 10.0-20.0 H [facility] AustinVwxubypGCFRIXPRX7314-23-94 20:00:00 Test Item Value Reference Range Interpretation Comments Calcium Lvl (test code = Calcium Lvl) 9.3 8.5-10.5 N [facility] AustinYfcytjiQUGPWFOHE8530-85-79 20:00:00 Test Item Value Reference Range Interpretation Comments Total Protein (test code = Total 6.7 6.4-8.4 N Protein) [facility] AustinMyilozvVEVTPHYTQ4196-30-54 20:00:00 Test Item Value Reference Range Interpretation Comments A/G Ratio (test code = A/G Ratio) 1.7 0.7-1.6 H [facility] AustinRqmbwxjOMAHXBMTO4226-78-17 20:00:00 Test Item Value Reference Range Interpretation Comments Globulin (test code = Globulin) 2.5 2.0-4.0 N [facility] AustinFqwoiabDJVHFRLYV2927-39-59 20:00:00 Test Item Value Reference Range Interpretation Comments AST (test code = AST) 18 See_Comment N [Auto mated message] The system which ge nerated this result transmit rohit reference range : <=37. The reference range was not used to interpr et this result as reji l/abnormal. [facility] AustinWtpfjnvKPSTNDLFD1807-89-25 20:00:00 Test Item Value Reference Range Interpretation Comments Alk Phos (test code = Alk Phos) 62 39-136 N [facility] AustinSkfsczbLRGRIJSVZ9589-84-43 20:00:00 Test Item Value Reference Range Interpretation Comments ALT (test code = ALT) 32 See_Comment N [Auto mated message] The system which ge nerated this result transmit rohit reference range : <=65. The reference range was not used to interpr et this result as reji l/abnormal. [facility] AustinDuyjmtqPHANABVAW2125-31-40 20:00:00 Test Item Value Reference Range Interpretation Comments Bili Total (test code = Bili Total) 0.7 0.2-1.3 N [facility]anoNdldaovLJXBUYLIYR3759-01-39 20:00:00 Test Item Value Reference Range Interpretation Comments Anisocyte (test code = 1+ *ABN*(11/28/2011 A Anisocyte) 15:00:00) [facility]anoSphknflSBYBUSCLFK1745-51-95 20:00:00 Test Item Value Reference Range Interpretation Comments Monocytes # (test code 0.1 See_Comment N [Aut omated message] The = Monocytes #) system which generated this result tra nsmitted reference range : <=0.8. The reference r leo was not used to int erpret this result as normal/abnormal . [facility] PlanoFlauzpzLYNHBOBNKD5157-63-13 20:00:00 Test Item Value Reference Range Interpretation Comments Eosinophils # (test code 0.0 See_Comment N [A utomated message] The = Eosinophils #) system whic h generated this result tra nsmitted reference range : <=0.5. The reference r leo was not used to int erpret this result as normal/abnormal . [facility]anoKgkkrheCACVRZBYYZ6187-38-35 20:00:00 Test Item Value Reference Range Interpretation Comments Basophils # (test code 0.0 See_Comment N [Aut omated message] The = Basophils #) system which generated this result tra nsmitted reference range : <=0.2. The reference r leo was not used to int erpret this result as normal/abnormal . [facility]anoAzuusmsESQZWWTBFM1999-60-72 20:00:00 Test Item Value Reference Range Interpretation Comments Neut Vac (test code = Slight *ABN*(11/28/2011 A Neut Vac) 15:00:00) [facility]anoJnuznyjPUGGQZUDQD5377-18-11 20:00:00 Test Item Value Reference Range Interpretation Comments Large Plt (test code = Slight *ABN*(11/28/2011 A Large Plt) 15:00:00) [facility]anoRsbddzhBRZZXBVQXO4040-11-91 20:00:00 Test Item Value Reference Range Interpretation Comments Segs-Bands # (test code = Segs-Bands #) 5.7 1.5-8.1 N [facility]anoOxaxfwnYFBJQIGJLQ5795-94-82 20:00:00 Test Item Value Reference Range Interpretation Comments Lymphocytes # (test code = Lymphocytes 0.8 1.0-5.5 L #) [facility]anoFjdipimIRRXNWESFZ2185-46-39 20:00:00 Test Item Value Reference Range Interpretation Comments Eosinophils (test code = 0.2 See_Comment N [A utomated message] The Eosinophils) system which ge nerated this result tra nsmitted reference range : <=4.0. The reference r leo was not used to int erpret this result as normal/abnormal . [facility]anoJdfdvrkOIMCMTDBKN6072-53-65 20:00:00 Test Item Value Reference Range Interpretation Comments Basophils (test code = 0.0 See_Comment N [Aut omated message] The Basophils) system which ge nerated this result tra nsmitted reference range : <=1.0. The reference r leo was not used to int erpret this result as normal/abnormal . [facility]anoKavdxubOPEFKQJLGQ9047-51-63 20:00:00 Test Item Value Reference Range Interpretation Comments Monocytes (test code = Monocytes) 1.9 2.0-12.0 L [facility]anoZidkxdpBZTBAEHWRB5948-30-83 20:00:00 Test Item Value Reference Range Interpretation Comments Segs (test code = Segs) 86.2 45.0-75.0 H [facility]anoKgbpaxkHSAESHEIQL7047-40-04 20:00:00 Test Item Value Reference Range Interpretation Comments Lymphocytes (test code = Lymphocytes) 11.7 20.0-40.0 L [facility]anoUdmhwlwULGWYQAHCK4165-50-67 20:00:00 Test Item Value Reference Range Interpretation Comments MPV (test code = MPV) 10.8 7.4-10.4 H [facility]anoDvyaxpuWUWPGYNGVG1538-45-61 20:00:00 Test Item Value Reference Range Interpretation Comments Platelet (test code = Platelet) 161 133-450 N [facility]anoVqavhltMLBEISLHQL6816-47-79 20:00:00 Test Item Value Reference Range Interpretation Comments MCHC (test code = MCHC) 35.6 32.0-36.0 N [facility]anoDbythavZOHHHWGATS1193-39-63 20:00:00 Test Item Value Reference Range Interpretation Comments RDW (test code = RDW) 12.4 11.5-14.5 N [facility]anoPczliisKJRLXOYDSM1264-75-72 20:00:00 Test Item Value Reference Range Interpretation Comments MCH (test code = MCH) 30.7 pg 27.0-31.0 N [facility]anoSgbhdzgOSNANXJEZL1761-05-07 20:00:00 Test Item Value Reference Range Interpretation Comments MCV (test code = MCV) 86.1 81.0-99.0 N [facility]anoXwfyzgzMHMPAWIMIK7499-68-99 20:00:00 Test Item Value Reference Range Interpretation Comments Hct (test code = Hct) 33.6 36.0-48.0 L [facility]anoGimmelhGBOCAFIKYK2252-24-16 20:00:00 Test Item Value Reference Range Interpretation Comments Hgb (test code = Hgb) 12.0 12.0-16.0 N [facility]anoMsmlykmFTZVFNLVDO6502-94-11 20:00:00 Test Item Value Reference Range Interpretation Comments RBC (test code = RBC) 3.90 4.20-5.40 L [facility]anoKpjhsgyQYXOMLPVBU6300-53-71 20:00:00 Test Item Value Reference Range Interpretation Comments WBC (test code = WBC) 6.6 3.7-10.4 N [facility] AustinDdtkbklHWOSGITWZ7407-16-62 20:00:00 Test Item Value Reference Range Interpretation Comments Lactic Acid Lvl (test code = Lactic 1.6 0.5-2.2 N Acid Lvl) [facility] AustinNfnxecmRPUSKMQVV9676-66-14 20:00:00 Test Item Value Reference Range Interpretation Comments Lipase Lvl (test code = Lipase Lvl) 125 73-393 N [facility] AustinPxghmmvPHJESTESV5103-20-66 20:00:00 Test Item Value Reference Range Interpretation Comments Albumin Lvl (test code = Albumin Lvl) 4.2 3.5-5.0 N [facility] AustinNczkchmKLQMIEPYM3373-99-36 20:00:00 Test Item Value Reference Range Interpretation Comments CO2 (test code = CO2) 23 24-32 L [facility] AustinVupsixnVXNBXLJJY5549-68-02 20:00:00 Test Item Value Reference Range Interpretation Comments Chloride Lvl (test code = Chloride Lvl) 98 95-109 N [facility] AustinQzodnsbCXKHORWSH0335-87-90 20:00:00 Test Item Value Reference Range Interpretation Comments Potassium Lvl (test code = Potassium 3.8 3.5-5.1 N Lvl) [facility] AustinMebivjoNUPRMYUVM5727-46-49 20:00:00 Test Item Value Reference Range Interpretation Comments Sodium Lvl (test code = Sodium Lvl) 138 135-145 N [facility] AustinBpyysidVLEELFHEA7831-14-06 20:00:00 Test Item Value Reference Range Interpretation Comments Creatinine Lvl (test code = Creatinine 0.7 0.5-1.4 N Lvl) [facility] AustinNkfcotjIPWHTRBTU5049-51-33 20:00:00 Test Item Value Reference Range Interpretation Comments BUN (test code = BUN) 9 7-22 N [facility] AustinYsxnlsaWEICTANTM3240-47-42 20:00:00 Test Item Value Reference Range Interpretation Comments Glucose Lvl (test code = Glucose Lvl) 269 70-99 H [facility] AustinRtjeijuIDBKBYPVO4949-09-42 20:00:00 Test Item Value Reference Range Interpretation Comments B/C Ratio (test code = B/C Ratio) 13 6-25 N [facility] AustinXvpkqqzWAMUMATDB6056-41-89 20:00:00 Test Item Value Reference Range Interpretation Comments AGAP (test code = AGAP) 20.8 10.0-20.0 H [facility] AustinBcxonprRNMADWMRN0102-32-12 20:00:00 Test Item Value Reference Range Interpretation Comments Calcium Lvl (test code = Calcium Lvl) 9.3 8.5-10.5 N [facility] AustinMcdrccfYICPDBDNP1202-66-35 20:00:00 Test Item Value Reference Range Interpretation Comments Total Protein (test code = Total 6.7 6.4-8.4 N Protein) [facility] AustinOlxwjubDVDGTLRDE3259-10-27 20:00:00 Test Item Value Reference Range Interpretation Comments A/G Ratio (test code = A/G Ratio) 1.7 0.7-1.6 H [facility] AustinNwyaxvsRHYMLIEHS8906-35-34 20:00:00 Test Item Value Reference Range Interpretation Comments Globulin (test code = Globulin) 2.5 2.0-4.0 N [facility] AustinWzpdggwAKXLETUSS1016-91-57 20:00:00 Test Item Value Reference Range Interpretation Comments AST (test code = AST) 18 See_Comment N [Auto mated message] The system which ge nerated this result transmit rohit reference range : <=37. The reference range was not used to interpr et this result as reji l/abnormal. [facility] AustinJnkwnrwREPVWJQNH3257-13-52 20:00:00 Test Item Value Reference Range Interpretation Comments Alk Phos (test code = Alk Phos) 62 39-136 N [facility] AustinCuoldxnAOGCRLWOY9287-19-48 20:00:00 Test Item Value Reference Range Interpretation Comments ALT (test code = ALT) 32 See_Comment N [Auto mated message] The system which ge nerated this result transmit rohit reference range : <=65. The reference range was not used to interpr et this result as reji l/abnormal. [facility] AustinEmuagvrGKKAUPFKZ0259-66-62 20:00:00 Test Item Value Reference Range Interpretation Comments Bili Total (test code = Bili Total) 0.7 0.2-1.3 N [facility]anoDvgbjuuVUVCCGOJLD3390-97-19 20:00:00 Test Item Value Reference Range Interpretation Comments Anisocyte (test code = 1+ *ABN*(11/28/2011 A Anisocyte) 15:00:00) [facility]anoApkaikgEFBAWTUOQV4607-35-84 20:00:00 Test Item Value Reference Range Interpretation Comments Monocytes # (test code 0.1 See_Comment N [Aut omated message] The = Monocytes #) system which generated this result tra nsmitted reference range : <=0.8. The reference r leo was not used to int erpret this result as normal/abnormal . [facility] PlanoGlolwgwMWGNEGJAEW5406-11-24 20:00:00 Test Item Value Reference Range Interpretation Comments Eosinophils # (test code 0.0 See_Comment N [A utomated message] The = Eosinophils #) system whic h generated this result tra nsmitted reference range : <=0.5. The reference r leo was not used to int erpret this result as normal/abnormal . [facility]anoKvknijiCXPEWAOVVV3967-40-33 20:00:00 Test Item Value Reference Range Interpretation Comments Basophils # (test code 0.0 See_Comment N [Aut omated message] The = Basophils #) system which generated this result tra nsmitted reference range : <=0.2. The reference r leo was not used to int erpret this result as normal/abnormal . [facility]anoHftpiwpPMZABDXJON8162-27-62 20:00:00 Test Item Value Reference Range Interpretation Comments Neut Vac (test code = Slight *ABN*(11/28/2011 A Neut Vac) 15:00:00) [facility]anoOsyouwaLYAMJPEBCL9649-90-39 20:00:00 Test Item Value Reference Range Interpretation Comments Large Plt (test code = Slight *ABN*(11/28/2011 A Large Plt) 15:00:00) [facility]anoOchvgpaRAPAWTWSQI8527-87-68 20:00:00 Test Item Value Reference Range Interpretation Comments Segs-Bands # (test code = Segs-Bands #) 5.7 1.5-8.1 N [facility] PlanoBqoumhmIIZJJZKQPX0701-28-20 20:00:00 Test Item Value Reference Range Interpretation Comments Lymphocytes # (test code = Lymphocytes 0.8 1.0-5.5 L #) [facility] PlanoZoiifstLBEACOEZJM4252-68-06 20:00:00 Test Item Value Reference Range Interpretation Comments Eosinophils (test code = 0.2 See_Comment N [A utomated message] The Eosinophils) system which ge nerated this result tra nsmitted reference range : <=4.0. The reference r leo was not used to int erpret this result as normal/abnormal . [facility]anoEjdyzfyIWQWIUMFQP9438-63-64 20:00:00 Test Item Value Reference Range Interpretation Comments Basophils (test code = 0.0 See_Comment N [Aut omated message] The Basophils) system which ge nerated this result tra nsmitted reference range : <=1.0. The reference r leo was not used to int erpret this result as normal/abnormal . [facility] PlanoUxclzxoBNWBAUACZJ4149-20-26 20:00:00 Test Item Value Reference Range Interpretation Comments Monocytes (test code = Monocytes) 1.9 2.0-12.0 L [facility]anoPdtihqeMFXZFNPDCA2653-53-18 20:00:00 Test Item Value Reference Range Interpretation Comments Segs (test code = Segs) 86.2 45.0-75.0 H [facility]anoBzvvbwuKDHNNOFPSA4549-00-07 20:00:00 Test Item Value Reference Range Interpretation Comments Lymphocytes (test code = Lymphocytes) 11.7 20.0-40.0 L [facility]anoBmglftbHPKZWESUXC3046-47-09 20:00:00 Test Item Value Reference Range Interpretation Comments MPV (test code = MPV) 10.8 7.4-10.4 H [facility]anoJedpbogKCAHUVCZXM0478-45-11 20:00:00 Test Item Value Reference Range Interpretation Comments Platelet (test code = Platelet) 161 133-450 N [facility]anoYwnnrxsUVCAXJJSUV5173-13-63 20:00:00 Test Item Value Reference Range Interpretation Comments MCHC (test code = MCHC) 35.6 32.0-36.0 N [facility]anoVdltkntBMUFRGSTZW2820-80-36 20:00:00 Test Item Value Reference Range Interpretation Comments RDW (test code = RDW) 12.4 11.5-14.5 N [facility]anoIhinwtuOSMPZTSTWZ9212-01-39 20:00:00 Test Item Value Reference Range Interpretation Comments MCH (test code = MCH) 30.7 pg 27.0-31.0 N [facility] PlanoRikczzpJPENADBHFP3000-71-19 20:00:00 Test Item Value Reference Range Interpretation Comments MCV (test code = MCV) 86.1 81.0-99.0 N [facility]TngnsktJXTBZFEQDM0829-59-25 20:00:00 Test Item Value Reference Range Interpretation Comments Hct (test code = Hct) 33.6 36.0-48.0 L [facility]anoSdieftnZHQGRUJTAU1627-18-22 20:00:00 Test Item Value Reference Range Interpretation Comments Hgb (test code = Hgb) 12.0 12.0-16.0 N [facility]anoKwwpddkHABWPUWWIS2035-65-41 20:00:00 Test Item Value Reference Range Interpretation Comments RBC (test code = RBC) 3.90 4.20-5.40 L [facility]anoIedqgqkPJTNGOGJRR3796-69-16 20:00:00 Test Item Value Reference Range Interpretation Comments WBC (test code = WBC) 6.6 3.7-10.4 N [facility] AustinSrofpuxENZPUGBNK0535-53-95 20:00:00 Test Item Value Reference Range Interpretation Comments Lactic Acid Lvl (test code = Lactic 1.6 0.5-2.2 N Acid Lvl) [facility] AustinHykpellOIWNXLKSC3742-55-51 20:00:00 Test Item Value Reference Range Interpretation Comments Lipase Lvl (test code = Lipase Lvl) 125 73-393 N [facility] AustinJfhwyiyKKLSQJBRX5006-49-93 20:00:00 Test Item Value Reference Range Interpretation Comments Albumin Lvl (test code = Albumin Lvl) 4.2 3.5-5.0 N [facility] AustinAnkbndjMOOKFUTKD4908-75-70 20:00:00 Test Item Value Reference Range Interpretation Comments CO2 (test code = CO2) 23 24-32 L [facility] AustinUiokpizMDKOOBYMH6376-99-93 20:00:00 Test Item Value Reference Range Interpretation Comments Chloride Lvl (test code = Chloride Lvl) 98 95-109 N [facility] AustinKfjsdtwGXQTVVMVF0851-98-24 20:00:00 Test Item Value Reference Range Interpretation Comments Potassium Lvl (test code = Potassium 3.8 3.5-5.1 N Lvl) [facility] AustinVwqvkmhKLZBKQEJR4832-93-41 20:00:00 Test Item Value Reference Range Interpretation Comments Sodium Lvl (test code = Sodium Lvl) 138 135-145 N [facility] AustinFhijnsxEFLYOHQZC4595-82-73 20:00:00 Test Item Value Reference Range Interpretation Comments Creatinine Lvl (test code = Creatinine 0.7 0.5-1.4 N Lvl) [facility] AustinEbvojllDYSYACLQR6700-43-14 20:00:00 Test Item Value Reference Range Interpretation Comments BUN (test code = BUN) 9 7-22 N [facility] AustinNcjkusxQYQYBIRLB7609-21-70 20:00:00 Test Item Value Reference Range Interpretation Comments Glucose Lvl (test code = Glucose Lvl) 269 70-99 H [facility] AustinWfcsltqOXSIXMRGE7040-00-59 20:00:00 Test Item Value Reference Range Interpretation Comments B/C Ratio (test code = B/C Ratio) 13 6-25 N [facility] AustinOeadjslVTLLUWLSQ7528-00-48 20:00:00 Test Item Value Reference Range Interpretation Comments AGAP (test code = AGAP) 20.8 10.0-20.0 H [facility] AustinHgoqwpzRDVZPLYJW4895-31-72 20:00:00 Test Item Value Reference Range Interpretation Comments Calcium Lvl (test code = Calcium Lvl) 9.3 8.5-10.5 N [facility] AustinGwsmnsvCAWKWXYNB2750-57-32 20:00:00 Test Item Value Reference Range Interpretation Comments Total Protein (test code = Total 6.7 6.4-8.4 N Protein) [facility] AustinCvtlqycDWBJGWSDL8913-45-86 20:00:00 Test Item Value Reference Range Interpretation Comments A/G Ratio (test code = A/G Ratio) 1.7 0.7-1.6 H [facility] AustinCdltrjgQLEURZOIA2068-06-74 20:00:00 Test Item Value Reference Range Interpretation Comments Globulin (test code = Globulin) 2.5 2.0-4.0 N [facility] AustinBqgziymDXPUVABWS8002-48-61 20:00:00 Test Item Value Reference Range Interpretation Comments AST (test code = AST) 18 See_Comment N [Auto mated message] The system which ge nerated this result transmit rohit reference range : <=37. The reference range was not used to interpr et this result as reji l/abnormal. [facility] AustinEdenvozNDIJBQXJM1144-97-20 20:00:00 Test Item Value Reference Range Interpretation Comments Alk Phos (test code = Alk Phos) 62 39-136 N [facility] AustinLjimqncRCRZVEIQI4172-76-69 20:00:00 Test Item Value Reference Range Interpretation Comments ALT (test code = ALT) 32 See_Comment N [Auto mated message] The system which ge nerated this result transmit rohit reference range : <=65. The reference range was not used to interpr et this result as reji l/abnormal. [facility] AustinFuhekycAJRRKFLTT0136-67-37 20:00:00 Test Item Value Reference Range Interpretation Comments Bili Total (test code = Bili Total) 0.7 0.2-1.3 N [facility]anoOsmvgqfVQKPHQZFHI4824-25-57 20:00:00 Test Item Value Reference Range Interpretation Comments Anisocyte (test code = 1+ *ABN*(11/28/2011 A Anisocyte) 15:00:00) [facility]anoOwekqcfVYSFFKPVHJ4560-89-42 20:00:00 Test Item Value Reference Range Interpretation Comments Monocytes # (test code 0.1 See_Comment N [Aut omated message] The = Monocytes #) system which generated this result tra nsmitted reference range : <=0.8. The reference r leo was not used to int erpret this result as normal/abnormal . [facility]anoWomobriTWNFIBOPUU1008-67-44 20:00:00 Test Item Value Reference Range Interpretation Comments Eosinophils # (test code 0.0 See_Comment N [A utomated message] The = Eosinophils #) system whic h generated this result tra nsmitted reference range : <=0.5. The reference r leo was not used to int erpret this result as normal/abnormal . [facility]anoOzpekacWGULKTGRMO2877-21-80 20:00:00 Test Item Value Reference Range Interpretation Comments Basophils # (test code 0.0 See_Comment N [Aut omated message] The = Basophils #) system which generated this result tra nsmitted reference range : <=0.2. The reference r leo was not used to int erpret this result as normal/abnormal . [facility]anoFjjeopuRXMOEBNZQC1425-20-00 20:00:00 Test Item Value Reference Range Interpretation Comments Neut Vac (test code = Slight *ABN*(11/28/2011 A Neut Vac) 15:00:00) [facility]anoHytepduFUYAEONWEN2600-24-52 20:00:00 Test Item Value Reference Range Interpretation Comments Large Plt (test code = Slight *ABN*(11/28/2011 A Large Plt) 15:00:00) [facility]anoXuthynvZUFJADBSLO5066-47-37 20:00:00 Test Item Value Reference Range Interpretation Comments Segs-Bands # (test code = Segs-Bands #) 5.7 1.5-8.1 N [facility]anoYiabwgkGEUFOECVBB1337-63-66 20:00:00 Test Item Value Reference Range Interpretation Comments Lymphocytes # (test code = Lymphocytes 0.8 1.0-5.5 L #) [facility]anoAqlwtxuFAGHKUYOSZ2636-40-94 20:00:00 Test Item Value Reference Range Interpretation Comments Eosinophils (test code = 0.2 See_Comment N [A utomated message] The Eosinophils) system which ge nerated this result tra nsmitted reference range : <=4.0. The reference r leo was not used to int erpret this result as normal/abnormal . [facility]anoPzuglorNEOQXRRRKQ5446-61-86 20:00:00 Test Item Value Reference Range Interpretation Comments Basophils (test code = 0.0 See_Comment N [Aut omated message] The Basophils) system which ge nerated this result tra nsmitted reference range : <=1.0. The reference r leo was not used to int erpret this result as normal/abnormal . [facility]anoCjobxjpIDEIEGYQXG8562-38-92 20:00:00 Test Item Value Reference Range Interpretation Comments Monocytes (test code = Monocytes) 1.9 2.0-12.0 L [facility]anoWxyflmsMIGIZDKPHH6311-15-24 20:00:00 Test Item Value Reference Range Interpretation Comments Segs (test code = Segs) 86.2 45.0-75.0 H [facility]anoEmryhqjELCOXIHCVD2348-96-97 20:00:00 Test Item Value Reference Range Interpretation Comments Lymphocytes (test code = Lymphocytes) 11.7 20.0-40.0 L [facility]anoUgsiefwKIOKXLPQHQ0980-68-02 20:00:00 Test Item Value Reference Range Interpretation Comments MPV (test code = MPV) 10.8 7.4-10.4 H [facility]anoGxhhxgtLKPPPECCKR7400-61-80 20:00:00 Test Item Value Reference Range Interpretation Comments Platelet (test code = Platelet) 161 133-450 N [facility]anoKtgakoxLAIQSIAIXL9093-61-85 20:00:00 Test Item Value Reference Range Interpretation Comments MCHC (test code = MCHC) 35.6 32.0-36.0 N [facility]anoTjsbuplFXDKLNUORY1931-55-77 20:00:00 Test Item Value Reference Range Interpretation Comments RDW (test code = RDW) 12.4 11.5-14.5 N [facility]anoHjvtlmyCHTTWNMUDH6831-74-95 20:00:00 Test Item Value Reference Range Interpretation Comments MCH (test code = MCH) 30.7 pg 27.0-31.0 N [facility]anoMudttyxLGDBHDCNMG7346-20-02 20:00:00 Test Item Value Reference Range Interpretation Comments MCV (test code = MCV) 86.1 81.0-99.0 N [facility]anoGvluvsxZGBHZOFVOB4221-41-55 20:00:00 Test Item Value Reference Range Interpretation Comments Hct (test code = Hct) 33.6 36.0-48.0 L [facility]anoXgtomqtUTLAYWRGXU2668-91-73 20:00:00 Test Item Value Reference Range Interpretation Comments Hgb (test code = Hgb) 12.0 12.0-16.0 N [facility]anoEbijsakCMXMCDTAVS1588-75-24 20:00:00 Test Item Value Reference Range Interpretation Comments RBC (test code = RBC) 3.90 4.20-5.40 L [facility]anoYqdapzxEBOEXZAGRQ9080-44-04 20:00:00 Test Item Value Reference Range Interpretation Comments WBC (test code = WBC) 6.6 3.7-10.4 N [facility] AustinKomlkfvIXJOGGBQJ3776-86-90 19:51:00 Test Item Value Reference Range Interpretation Comments UDS Note (test code = See Note UDS Note) 5*NA*(11/28/2011 14:51:00) [facility] AustinNwbvnlmNIKCNDJND9282-43-19 19:51:00 Test Item Value Reference Range Interpretation Comments U Phencyc Scr (test Negative code = U Phencyc Scr) *NA*(11/28/2011 14:51:00) [facility] AustinCevfpaoMJHXZQYEX1807-60-79 19:51:00 Test Item Value Reference Range Interpretation Comments U Kelly Scr (test code Negative *NA*(11/28/2011 = U Kelly Scr) 14:51:00) [facility] AustinGgyhjsxDYOXBHBHW1865-78-68 19:51:00 Test Item Value Reference Range Interpretation Comments U Amph Scr (test code Negative *NA*(11/28/2011 = U Amph Scr) 14:51:00) [facility] AustinOsjrmvqOVKISJQXO4443-02-07 19:51:00 Test Item Value Reference Range Interpretation Comments U Opiate Scr (test Negative code = U Opiate Scr) *NA*(11/28/2011 14:51:00) [facility] AustinElaaruaIMIEOPPVW1275-85-05 19:51:00 Test Item Value Reference Range Interpretation Comments U Cocaine Scr (test Negative code = U Cocaine Scr) *NA*(11/28/2011 14:51:00) [facility] AustinIxzohtdAROKXLGDJ6700-19-04 19:51:00 Test Item Value Reference Range Interpretation Comments U Cannab Scr (test Negative code = U Cannab Scr) *NA*(11/28/2011 14:51:00) [facility] AustinMrwyvskWULNOULTK8000-22-83 19:51:00 Test Item Value Reference Range Interpretation Comments U Benzodia Scr (test Negative code = U Benzodia Scr) *NA*(11/28/2011 14:51:00) [facility] AustinOtpzezrAUZIOQFYW8654-19-18 19:51:00 Test Item Value Reference Range Interpretation Comments UDS Note (test code = See Note UDS Note) 5*NA*(11/28/2011 14:51:00) [facility] AustinWmctsyeFLHXRKQWO7326-20-85 19:51:00 Test Item Value Reference Range Interpretation Comments U Phencyc Scr (test Negative code = U Phencyc Scr) *NA*(11/28/2011 14:51:00) [facility] AustinYswuterFMRFKLKZU6121-15-70 19:51:00 Test Item Value Reference Range Interpretation Comments U Kelly Scr (test code Negative *NA*(11/28/2011 = U Kelly Scr) 14:51:00) [facility] AustinSrxobmsRSHAVGVPC9614-86-66 19:51:00 Test Item Value Reference Range Interpretation Comments U Amph Scr (test code Negative *NA*(11/28/2011 = U Amph Scr) 14:51:00) [facility] AustinKfidvzhAWZVCADKU9694-14-88 19:51:00 Test Item Value Reference Range Interpretation Comments U Opiate Scr (test Negative code = U Opiate Scr) *NA*(11/28/2011 14:51:00) [facility] AustinPagohxwBAQIFCPDV6048-10-60 19:51:00 Test Item Value Reference Range Interpretation Comments U Cocaine Scr (test Negative code = U Cocaine Scr) *NA*(11/28/2011 14:51:00) [facility] AustinXgsqsunBYUSBRHFX1687-14-29 19:51:00 Test Item Value Reference Range Interpretation Comments U Cannab Scr (test Negative code = U Cannab Scr) *NA*(11/28/2011 14:51:00) [facility] AustinUorrdisWFITQZPTB7693-32-79 19:51:00 Test Item Value Reference Range Interpretation Comments U Benzodia Scr (test Negative code = U Benzodia Scr) *NA*(11/28/2011 14:51:00) [facility] AustinTzbvagbJRRBJPVFV9621-27-57 19:51:00 Test Item Value Reference Range Interpretation Comments UDS Note (test code = See Note UDS Note) 5*NA*(11/28/2011 14:51:00) [facility] AustinRnvaqkpDHWXODLNE0996-06-02 19:51:00 Test Item Value Reference Range Interpretation Comments U Phencyc Scr (test Negative code = U Phencyc Scr) *NA*(11/28/2011 14:51:00) [facility] AustinTaudcnyNCIUKEWXF6793-16-91 19:51:00 Test Item Value Reference Range Interpretation Comments U Kelly Scr (test code Negative *NA*(11/28/2011 = U Kelly Scr) 14:51:00) [facility] AustinJzeketaYOFQVYJMR9463-91-02 19:51:00 Test Item Value Reference Range Interpretation Comments U Amph Scr (test code Negative *NA*(11/28/2011 = U Amph Scr) 14:51:00) [facility]icsUojioloKLICKJPJO3336-50-81 19:51:00 Test Item Value Reference Range Interpretation Comments U Opiate Scr (test Negative code = U Opiate Scr) *NA*(11/28/2011 14:51:00) [facility] AustinNacbcukNBDZQCRIY4967-79-35 19:51:00 Test Item Value Reference Range Interpretation Comments U Cocaine Scr (test Negative code = U Cocaine Scr) *NA*(11/28/2011 14:51:00) [facility] AustinWkwapouZLJXUYPNV0486-72-15 19:51:00 Test Item Value Reference Range Interpretation Comments U Cannab Scr (test Negative code = U Cannab Scr) *NA*(11/28/2011 14:51:00) [facility] AustinAvmcintDLNYIHVTQ0017-44-45 19:51:00 Test Item Value Reference Range Interpretation Comments U Benzodia Scr (test Negative code = U Benzodia Scr) *NA*(11/28/2011 14:51:00) [facility] AustinFnzrnrzTMGMXAUGJ4190-90-91 19:51:00 Test Item Value Reference Range Interpretation Comments UDS Note (test code = See Note UDS Note) 5*NA*(11/28/2011 14:51:00) [facility] AustinGkhksszOQDXVFVDL7313-08-03 19:51:00 Test Item Value Reference Range Interpretation Comments U Phencyc Scr (test Negative code = U Phencyc Scr) *NA*(11/28/2011 14:51:00) [facility] AustinOcixohnSJJQDYQUK8774-91-94 19:51:00 Test Item Value Reference Range Interpretation Comments U Kelly Scr (test code Negative *NA*(11/28/2011 = U Kelly Scr) 14:51:00) [facility] AustinXjahmbkPITEMXIYQ3492-97-25 19:51:00 Test Item Value Reference Range Interpretation Comments U Amph Scr (test code Negative *NA*(11/28/2011 = U Amph Scr) 14:51:00) [facility] AustinBedomdwFPEZDQEND0106-79-13 19:51:00 Test Item Value Reference Range Interpretation Comments U Opiate Scr (test Negative code = U Opiate Scr) *NA*(11/28/2011 14:51:00) [facility] AustinDopestbZRVZFWVMV7992-40-57 19:51:00 Test Item Value Reference Range Interpretation Comments U Cocaine Scr (test Negative code = U Cocaine Scr) *NA*(11/28/2011 14:51:00) [facility] AustinFsbyinwPYIOZDGQG7022-59-57 19:51:00 Test Item Value Reference Range Interpretation Comments U Cannab Scr (test Negative code = U Cannab Scr) *NA*(11/28/2011 14:51:00) [facility] AustinUbaofmyMNPLQHURT2983-61-53 19:51:00 Test Item Value Reference Range Interpretation Comments U Benzodia Scr (test Negative code = U Benzodia Scr) *NA*(11/28/2011 14:51:00) [facility] AustinLiokpedMHFURQZVV5773-81-24 19:51:00 Test Item Value Reference Range Interpretation Comments UDS Note (test code = See Note UDS Note) 5*NA*(11/28/2011 14:51:00) [facility] AustinUloqkpcSKUDHICPG7056-61-17 19:51:00 Test Item Value Reference Range Interpretation Comments U Phencyc Scr (test Negative code = U Phencyc Scr) *NA*(11/28/2011 14:51:00) [facility] AustinVnrelgcHXFPZJPHB4913-24-48 19:51:00 Test Item Value Reference Range Interpretation Comments U Kelly Scr (test code Negative *NA*(11/28/2011 = U Kelly Scr) 14:51:00) [facility] AustinDfopyzcQNNUSRGTY9438-52-04 19:51:00 Test Item Value Reference Range Interpretation Comments U Amph Scr (test code Negative *NA*(11/28/2011 = U Amph Scr) 14:51:00) [facility] AustinVdylqwgZUXCFULGA2170-52-19 19:51:00 Test Item Value Reference Range Interpretation Comments U Opiate Scr (test Negative code = U Opiate Scr) *NA*(11/28/2011 14:51:00) [facility] AustinLezrofbCNODEQZVH5610-86-64 19:51:00 Test Item Value Reference Range Interpretation Comments U Cocaine Scr (test Negative code = U Cocaine Scr) *NA*(11/28/2011 14:51:00) [facility] AustinTkuwhfjCCJBLNAQA0928-78-53 19:51:00 Test Item Value Reference Range Interpretation Comments U Cannab Scr (test Negative code = U Cannab Scr) *NA*(11/28/2011 14:51:00) [facility] AustinVbdkcafZVCQVJJOH0184-67-63 19:51:00 Test Item Value Reference Range Interpretation Comments U Benzodia Scr (test Negative code = U Benzodia Scr) *NA*(11/28/2011 14:51:00) [facility] GLUCOSE WDRFSJZ4194-48-26 16:20:00 Test Item Value Reference Range Interpretation Comments Comment1 (test code = Comment1) Notify RN/ [facility] GLUCOSE GLNAYMZ4392-65-52 16:20:00 Test Item Value Reference Range Interpretation Comments Gluc POC Lifscn (test code = Gluc POC 328 70-99 H Lifscn) [facility] GLUCOSE QUESVYV8498-24-65 16:20:00 Test Item Value Reference Range Interpretation Comments Comment1 (test code = Comment1) Notify RN/ [facility] GLUCOSE YSDEMLX1415-39-78 16:20:00 Test Item Value Reference Range Interpretation Comments Gluc POC Lifscn (test code = Gluc POC 328 70-99 H Lifscn) [facility] GLUCOSE SFGQICD7878-93-35 16:20:00 Test Item Value Reference Range Interpretation Comments Comment1 (test code = Comment1) Notify RN/ [facility] GLUCOSE IWFXGIP1431-56-18 16:20:00 Test Item Value Reference Range Interpretation Comments Gluc POC Lifscn (test code = Gluc POC 328 70-99 H Lifscn) [facility] GLUCOSE TKQYGCG5650-28-13 16:20:00 Test Item Value Reference Range Interpretation Comments Comment1 (test code = Comment1) Notify RN/ [facility] GLUCOSE MKZOBZU3299-54-60 16:20:00 Test Item Value Reference Range Interpretation Comments Gluc POC Lifscn (test code = Gluc POC 328 70-99 H Lifscn) [facility] GLUCOSE XGAMUDV6683-60-48 16:20:00 Test Item Value Reference Range Interpretation Comments Comment1 (test code = Comment1) Notify RN/ [facility] GLUCOSE ZXSFJIP7932-54-71 16:20:00 Test Item Value Reference Range Interpretation Comments Gluc POC Lifscn (test code = Gluc POC 328 70-99 H Lifscn) [facility] AustinNrfqqlePRCTWVNVR0893-51-68 15:30:00 Test Item Value Reference Range Interpretation Comments U Preg (test code = U Negative (09/18/2011 N Preg) 10:30:00) [facility]SqdgiebDTZEEGZOJP9272-00-46 15:30:00 Test Item Value Reference Range Interpretation Comments UA WBC (test code = UA None Seen (09/18/2011 N WBC) 10:30:00) [facility] CenterDjcgvayLNWXXMCKWD7176-60-51 15:30:00 Test Item Value Reference Range Interpretation Comments UA RBC (test None Seen See_Comment N [Automated mes pastor] code = UA RBC) (09/18/2011 The system wh ich 10:30:00) generated this result transmitted ref erence range: <=2. The reference range was not used to int erpret this result as normal/abnormal . [facility] TylerEdcettiFNZGXNHAYL4097-57-25 15:30:00 Test Item Value Reference Range Interpretation Comments UA Bacteria (test code = None Seen (09/18/2011 N UA Bacteria) 10:30:00) [facility] TylerPmyjjanSJLMXULPJK3213-57-67 15:30:00 Test Item Value Reference Range Interpretation Comments UA Amorph Destiny (test Few /HPF A code = UA Amorph Destiny) *ABN*(09/18/2011 10:30:00) [facility] CenterRyeibeuHNCBLXVOBT8316-22-44 15:30:00 Test Item Value Reference Range Interpretation Comments Micro? (test code = Performed (09/18/2011 N Micro?) 10:30:00) [facility] CenterZdmahveIITLUPZHHB0801-19-35 15:30:00 Test Item Value Reference Range Interpretation Comments UA Sq Epi (test code = Rare /LPF (09/18/2011 N UA Sq Epi) 10:30:00) [facility] CenterKtiazevGQEWILPYSF1527-66-10 15:30:00 Test Item Value Reference Range Interpretation Comments UA Ketones (test code = 15 mg/dL A UA Ketones) *ABN*(09/18/2011 10:30:00) [facility] CenterGslekeeWZCGGUOAMB7640-88-88 15:30:00 Test Item Value Reference Range Interpretation Comments UA Glucose (test code = >=1000 mg/dL A UA Glucose) *ABN*(09/18/2011 10:30:00) [facility] CenterAvpdzjlMAGNLUQQUM4697-89-42 15:30:00 Test Item Value Reference Range Interpretation Comments UA Protein (test code = Trace A UA Protein) *ABN*(09/18/2011 10:30:00) [facility]EtycbrgOUWLZBOWWB5430-42-74 15:30:00 Test Item Value Reference Range Interpretation Comments UA Urobilinogen (test code = UA 0.2 0.1-1.0 N Urobilinogen) [facility] CenterDiukkkpWVDUTKPKEU9419-52-17 15:30:00 Test Item Value Reference Range Interpretation Comments UA Blood (test code = Negative (09/18/2011 N UA Blood) 10:30:00) [facility]icsKppntxzVQFZQMFXRT8302-81-61 15:30:00 Test Item Value Reference Range Interpretation Comments UA Bili (test code = Negative *NA*(09/18/2011 UA Bili) 10:30:00) [facility] CenterEslfukfZFHATXFSVY9119-29-45 15:30:00 Test Item Value Reference Range Interpretation Comments UA Leuk Est (test Negative (09/18/2011 N code = UA Leuk Est) 10:30:00) [facility] CenterNlebqraFPPCZJHMPG1203-71-48 15:30:00 Test Item Value Reference Range Interpretation Comments UA Nitrite (test code Negative (09/18/2011 N = UA Nitrite) 10:30:00) [facility] CenterVdkukazZOCQMRCMTH4666-07-95 15:30:00 Test Item Value Reference Range Interpretation Comments UA pH (test code = UA pH) 7.5 1 5.0-8.0 N [facility] CenterFhilamyINVCIDUSQZ6998-20-89 15:30:00 Test Item Value Reference Range Interpretation Comments UA Spec Grav (test code = UA Spec 1.010 1 N Grav) [facility]icsYgtmwurREXTHMFGLE7036-62-73 15:30:00 Test Item Value Reference Range Interpretation Comments UA Turbidity (test code Slight Cloudy N = UA Turbidity) (09/18/2011 10:30:00) [facility] CenterCgzuzhqVIDFBGMFTV7201-09-48 15:30:00 Test Item Value Reference Range Interpretation Comments UA Color (test code = Yellow *NA*(09/18/2011 UA Color) 10:30:00) [facility] CenterPhajtlmMGYIKCETT9764-04-93 15:30:00 Test Item Value Reference Range Interpretation Comments U Preg (test code = U Negative (09/18/2011 N Preg) 10:30:00) [facility]icsOasmnafDQPSKZRZIS5351-66-01 15:30:00 Test Item Value Reference Range Interpretation Comments UA WBC (test code = UA None Seen (09/18/2011 N WBC) 10:30:00) [facility] TylerUamuigdTXBCXSBHOD7348-63-43 15:30:00 Test Item Value Reference Range Interpretation Comments UA RBC (test None Seen See_Comment N [Automated mes pastor] code = UA RBC) (09/18/2011 The system ich 10:30:00) generated this result transmitted ref erence range: <=2. The reference range was not used to int erpret this result as normal/abnormal . [facility] TylerQwdhvkyGWBURHVELC2425-97-94 15:30:00 Test Item Value Reference Range Interpretation Comments UA Bacteria (test code = None Seen (09/18/2011 N UA Bacteria) 10:30:00) [facility] [facility] TylerFuhpkynNADSTZPHCD9839-67-36 15:30:00 Test Item Value Reference Range Interpretation Comments UA Amorph Destiny (test Few /HPF A code = UA Amorph Destiny) *ABN*(09/18/2011 10:30:00) [facility] TylerAgzokbfLREZQCAARI4350-83-07 15:30:00 Test Item Value Reference Range Interpretation Comments Micro? (test code = Performed (09/18/2011 N Micro?) 10:30:00) [facility] TylerHhwwoseAXQSENLXAT0568-04-52 15:30:00 Test Item Value Reference Range Interpretation Comments UA Sq Epi (test code = Rare /LPF (09/18/2011 N UA Sq Epi) 10:30:00) [facility] TylerErpajxaCCBYQPQXSB6548-34-64 15:30:00 Test Item Value Reference Range Interpretation Comments UA Ketones (test code = 15 mg/dL A UA Ketones) *ABN*(09/18/2011 10:30:00) [facility] CenterMatufumWRRKJXTILR8054-62-45 15:30:00 Test Item Value Reference Range Interpretation Comments UA Glucose (test code = >=1000 mg/dL A UA Glucose) *ABN*(09/18/2011 10:30:00) [facility] CenterUfboabkUUQMUNZEMU6081-85-83 15:30:00 Test Item Value Reference Range Interpretation Comments UA Protein (test code = Trace A UA Protein) *ABN*(09/18/2011 10:30:00) [facility] CenterMwmosraHFBXYFXYHN8945-15-96 15:30:00 Test Item Value Reference Range Interpretation Comments UA Urobilinogen (test code = UA 0.2 0.1-1.0 N Urobilinogen) [facility] CenterEuakkpnNJOJWABPIJ9274-23-49 15:30:00 Test Item Value Reference Range Interpretation Comments UA Blood (test code = Negative (09/18/2011 N UA Blood) 10:30:00) [facility]icsQopttaaSNPGFZYOQK8248-18-20 15:30:00 Test Item Value Reference Range Interpretation Comments UA Bili (test code = Negative *NA*(09/18/2011 UA Bili) 10:30:00) [facility] CenterSdkkkjhONQYXQNKWC7998-94-57 15:30:00 Test Item Value Reference Range Interpretation Comments UA Leuk Est (test Negative (09/18/2011 N code = UA Leuk Est) 10:30:00) [facility] CenterOktxfxzJPLNGLSXXR0936-45-56 15:30:00 Test Item Value Reference Range Interpretation Comments UA Nitrite (test code Negative (09/18/2011 N = UA Nitrite) 10:30:00) [facility] CenterQvwrxjbCCOUQNEHUL3074-27-64 15:30:00 Test Item Value Reference Range Interpretation Comments UA pH (test code = UA pH) 7.5 1 5.0-8.0 N [facility] CenterFigsedsKKAPLTQWWO3955-18-42 15:30:00 Test Item Value Reference Range Interpretation Comments UA Spec Grav (test code = UA Spec 1.010 1 N Grav) [facility] CenterFmnwgyuGWVRMAZOCM0638-09-58 15:30:00 Test Item Value Reference Range Interpretation Comments UA Turbidity (test code Slight Cloudy N = UA Turbidity) (09/18/2011 10:30:00) [facility] CenterOwawlwfZLSACJYKEU9291-76-47 15:30:00 Test Item Value Reference Range Interpretation Comments UA Color (test code = Yellow *NA*(09/18/2011 UA Color) 10:30:00) [facility] CenterLlfxbatSRRCJDAYD0344-66-95 15:30:00 Test Item Value Reference Range Interpretation Comments U Preg (test code = U Negative (09/18/2011 N Preg) 10:30:00) [facility]icsOldukbvWDFEVICSXO1723-01-64 15:30:00 Test Item Value Reference Range Interpretation Comments UA WBC (test code = UA None Seen (09/18/2011 N WBC) 10:30:00) [facility] CenterMtjdtbyJHDIEBRWEV2963-44-90 15:30:00 Test Item Value Reference Range Interpretation Comments UA RBC (test None Seen See_Comment N [Automated mes pastor] code = UA RBC) (09/18/2011 The system wh ich 10:30:00) generated this result transmitted ref erence range: <=2. The reference range was not used to int erpret this result as normal/abnormal . [facility] CenterIylxhrpZPKBXSBEFO4500-49-74 15:30:00 Test Item Value Reference Range Interpretation Comments UA Bacteria (test code = None Seen (09/18/2011 N UA Bacteria) 10:30:00) [facility] CenterWxwprmjIYMXMBJNJE5707-64-55 15:30:00 Test Item Value Reference Range Interpretation Comments UA Amorph Destiny (test Few /HPF A code = UA Amorph Destiny) *ABN*(09/18/2011 10:30:00) [facility] CenterZerxmpyENSFCQUMZP0861-85-32 15:30:00 Test Item Value Reference Range Interpretation Comments Micro? (test code = Performed (09/18/2011 N Micro?) 10:30:00) [facility] CenterZoaotaqEMQRHBRZVK2069-09-50 15:30:00 Test Item Value Reference Range Interpretation Comments UA Sq Epi (test code = Rare /LPF (09/18/2011 N UA Sq Epi) 10:30:00) [facility] CenterZjaqdamHUIZSFABGE0374-40-06 15:30:00 Test Item Value Reference Range Interpretation Comments UA Ketones (test code = 15 mg/dL A UA Ketones) *ABN*(09/18/2011 10:30:00) [facility] CenterLhqcsluCZYNBKCPEW4864-28-02 15:30:00 Test Item Value Reference Range Interpretation Comments UA Glucose (test code = >=1000 mg/dL A UA Glucose) *ABN*(09/18/2011 10:30:00) [facility] CenterYpqrjbhHGOWUJGHNG4048-14-21 15:30:00 Test Item Value Reference Range Interpretation Comments UA Protein (test code = Trace A UA Protein) *ABN*(09/18/2011 10:30:00) [facility] CenterNpcelrgOEZHZZWQXK0628-69-04 15:30:00 Test Item Value Reference Range Interpretation Comments UA Urobilinogen (test code = UA 0.2 0.1-1.0 N Urobilinogen) [facility] CenterOouzunyHRFKOMROTA9251-92-64 15:30:00 Test Item Value Reference Range Interpretation Comments UA Blood (test code = Negative (09/18/2011 N UA Blood) 10:30:00) [facility] CenterNmplaraXRYYPDWAPC8815-44-74 15:30:00 Test Item Value Reference Range Interpretation Comments UA Bili (test code = Negative *NA*(09/18/2011 UA Bili) 10:30:00) [facility] CenterZmqucvvLGXTCXAQHU1291-14-45 15:30:00 Test Item Value Reference Range Interpretation Comments UA Leuk Est (test Negative (09/18/2011 N code = UA Leuk Est) 10:30:00) [facility] CenterAkcimerLKJLLDEYLE0964-64-45 15:30:00 Test Item Value Reference Range Interpretation Comments UA Nitrite (test code Negative (09/18/2011 N = UA Nitrite) 10:30:00) [facility] CenterOjouljmAJQMLSMZUU4594-27-27 15:30:00 Test Item Value Reference Range Interpretation Comments UA pH (test code = UA pH) 7.5 1 5.0-8.0 N [facility] CenterVtroljoCCYAOWJEJL3908-51-35 15:30:00 Test Item Value Reference Range Interpretation Comments UA Spec Grav (test code = UA Spec 1.010 1 N Grav) [facility] CenterLfvrasvUTWWYXHUMR8601-45-61 15:30:00 Test Item Value Reference Range Interpretation Comments UA Turbidity (test code Slight Cloudy N = UA Turbidity) (09/18/2011 10:30:00) [facility] CenterYfblhvdPJZAHYPOCR4358-41-09 15:30:00 Test Item Value Reference Range Interpretation Comments UA Color (test code = Yellow *NA*(09/18/2011 UA Color) 10:30:00) [facility] CenterWfnjypdVICUEGCCF6645-94-53 15:30:00 Test Item Value Reference Range Interpretation Comments U Preg (test code = U Negative (09/18/2011 N Preg) 10:30:00) [facility] CenterQwgwgndOKJOLXXLMX9571-61-59 15:30:00 Test Item Value Reference Range Interpretation Comments UA WBC (test code = UA None Seen (09/18/2011 N WBC) 10:30:00) [facility] CenterBqkhxsrFKGJFSSTLU2066-96-11 15:30:00 Test Item Value Reference Range Interpretation Comments UA RBC (test None Seen See_Comment N [Automated mes pastor] code = UA RBC) (09/18/2011 The system [facility] 10:30:00) generated this result transmitted ref erence range: <=2. The reference range was not used to int erpret this result as normal/abnormal . [facility] CenterEwjomqyDYWAGRMMGX9647-28-43 15:30:00 Test Item Value Reference Range Interpretation Comments UA Bacteria (test code = None Seen (09/18/2011 N UA Bacteria) 10:30:00) [facility] CenterPtneaicPJSFUOIVHK2723-27-77 15:30:00 Test Item Value Reference Range Interpretation Comments UA Amorph Destiny (test Few /HPF A code = UA Amorph Destiny) *ABN*(09/18/2011 10:30:00) [facility] CenterWphqzmpGWDXAUQLMG6514-99-45 15:30:00 Test Item Value Reference Range Interpretation Comments Micro? (test code = Performed (09/18/2011 N Micro?) 10:30:00) [facility] CenterOcmwthnOHVRBLGXVB5937-68-89 15:30:00 Test Item Value Reference Range Interpretation Comments UA Sq Epi (test code = Rare /LPF (09/18/2011 N UA Sq Epi) 10:30:00) [facility] CenterQgwulcoRCGLOWGGAH9142-92-81 15:30:00 Test Item Value Reference Range Interpretation Comments UA Ketones (test code = 15 mg/dL A UA Ketones) *ABN*(09/18/2011 10:30:00) [facility] CenterHqgxtobSPSLCKNQHP9060-32-17 15:30:00 Test Item Value Reference Range Interpretation Comments UA Glucose (test code = >=1000 mg/dL A UA Glucose) *ABN*(09/18/2011 10:30:00) [facility] CenterSijwfflJCZQVVGPIR8216-61-69 15:30:00 Test Item Value Reference Range Interpretation Comments UA Protein (test code = Trace A UA Protein) *ABN*(09/18/2011 10:30:00) [facility] CenterRarzjlhYDEPYRIOFM5419-51-89 15:30:00 Test Item Value Reference Range Interpretation Comments UA Urobilinogen (test code = UA 0.2 0.1-1.0 N Urobilinogen) [facility] CenterSpyufxeAQFIWXQEHL1025-29-08 15:30:00 Test Item Value Reference Range Interpretation Comments UA Blood (test code = Negative (09/18/2011 N UA Blood) 10:30:00) [facility] CenterXhxvifqLOVHDAOUCU7527-29-73 15:30:00 Test Item Value Reference Range Interpretation Comments UA Bili (test code = Negative *NA*(09/18/2011 UA Bili) 10:30:00) [facility] CenterRynszkjFVYHMOXUZC3766-74-05 15:30:00 Test Item Value Reference Range Interpretation Comments UA Leuk Est (test Negative (09/18/2011 N code = UA Leuk Est) 10:30:00) [facility] CenterLeunkhyREYTRYYEPW3398-46-58 15:30:00 Test Item Value Reference Range Interpretation Comments UA Nitrite (test code Negative (09/18/2011 N = UA Nitrite) 10:30:00) [facility] CenterIzvuiltYEZGBUBDNP5629-52-01 15:30:00 Test Item Value Reference Range Interpretation Comments UA pH (test code = UA pH) 7.5 1 5.0-8.0 N [facility] CenterYffiefmRTEZPECQKR2560-18-42 15:30:00 Test Item Value Reference Range Interpretation Comments UA Spec Grav (test code = UA Spec 1.010 1 N Grav) [facility] CenterPybmvueMCLOHEHNQH6481-19-29 15:30:00 Test Item Value Reference Range Interpretation Comments UA Turbidity (test code Slight Cloudy N = UA Turbidity) (09/18/2011 10:30:00) [facility] CenterHvseamoUCUBBVYSMK5365-23-32 15:30:00 Test Item Value Reference Range Interpretation Comments UA Color (test code = Yellow *NA*(09/18/2011 UA Color) 10:30:00) [facility] CenterLvqrxgmIUYZQULXA0537-48-12 15:30:00 Test Item Value Reference Range Interpretation Comments U Preg (test code = U Negative (09/18/2011 N Preg) 10:30:00) [facility] CenterPhzelxmCEQJRTPOXG8804-40-83 15:30:00 Test Item Value Reference Range Interpretation Comments UA WBC (test code = UA None Seen (09/18/2011 N WBC) 10:30:00) [facility] CenterLxqjnduYLFFGLEQST5845-17-26 15:30:00 Test Item Value Reference Range Interpretation Comments UA RBC (test None Seen See_Comment N [Automated mes pastor] code = UA RBC) (09/18/2011 The system wh ich 10:30:00) generated this result transmitted ref erence range: <=2. The reference range was not used to int erpret this result as normal/abnormal . [facility] CenterQnomyyvZSJPXFGDGX2863-89-94 15:30:00 Test Item Value Reference Range Interpretation Comments UA Bacteria (test code = None Seen (09/18/2011 N UA Bacteria) 10:30:00) [facility] CenterYlepcdeIQAUMABILC2012-33-56 15:30:00 Test Item Value Reference Range Interpretation Comments UA Amorph Destiny (test Few /HPF A code = UA Amorph Destiny) *ABN*(09/18/2011 10:30:00) [facility] CenterBzhedbmZWQGWAPPUE6447-98-57 15:30:00 Test Item Value Reference Range Interpretation Comments Micro? (test code = Performed (09/18/2011 N Micro?) 10:30:00) [facility] TylerIgijwsrRRSTHSGLIL5479-47-02 15:30:00 Test Item Value Reference Range Interpretation Comments UA Sq Epi (test code = Rare /LPF (09/18/2011 N UA Sq Epi) 10:30:00) [facility] CenterQhmxjykNTLAETUWXN2543-03-92 15:30:00 Test Item Value Reference Range Interpretation Comments UA Ketones (test code = 15 mg/dL A UA Ketones) *ABN*(09/18/2011 10:30:00) [facility] CenterRbsddjyFXDFQWPLHS8318-32-51 15:30:00 Test Item Value Reference Range Interpretation Comments UA Glucose (test code = >=1000 mg/dL A UA Glucose) *ABN*(09/18/2011 10:30:00) [facility] CenterFhekfsmCPPFRUBQUH6576-64-29 15:30:00 Test Item Value Reference Range Interpretation Comments UA Protein (test code = Trace A UA Protein) *ABN*(09/18/2011 10:30:00) [facility] CenterZwskqoaUGRLJGWNLP1625-72-94 15:30:00 Test Item Value Reference Range Interpretation Comments UA Urobilinogen (test code = UA 0.2 0.1-1.0 N Urobilinogen) [facility] CenterNkojohiMWCRDSIQOJ2784-47-18 15:30:00 Test Item Value Reference Range Interpretation Comments UA Blood (test code = Negative (09/18/2011 N UA Blood) 10:30:00) [facility] CenterBxpqgmrOIBNIBXADF2665-63-99 15:30:00 Test Item Value Reference Range Interpretation Comments UA Bili (test code = Negative *NA*(09/18/2011 UA Bili) 10:30:00) [facility] TylerVjeccnvPTNHXFILJD4794-88-78 15:30:00 Test Item Value Reference Range Interpretation Comments UA Leuk Est (test Negative (09/18/2011 N code = UA Leuk Est) 10:30:00) [facility] CenterFbcjpkiJMWXKGEKUS4278-36-81 15:30:00 Test Item Value Reference Range Interpretation Comments UA Nitrite (test code Negative (09/18/2011 N = UA Nitrite) 10:30:00) [facility] TylerHhfliqpZPTWDZIBFH1084-99-46 15:30:00 Test Item Value Reference Range Interpretation Comments UA pH (test code = UA pH) 7.5 1 5.0-8.0 N [facility] TylerZplfpldOKHNJDTFZN6434-96-97 15:30:00 Test Item Value Reference Range Interpretation Comments UA Spec Grav (test code = UA Spec 1.010 1 N Grav) [facility] TylerBxpwlknPAUQODESYG3303-33-78 15:30:00 Test Item Value Reference Range Interpretation Comments UA Turbidity (test code Slight Cloudy N = UA Turbidity) (09/18/2011 10:30:00) [facility] TylerMwzcvjqVTIDNIWQWV6284-03-60 15:30:00 Test Item Value Reference Range Interpretation Comments UA Color (test code = Yellow *NA*(09/18/2011 UA Color) 10:30:00) [facility] AustinXdxfulxVJAEBCBOM2057-82-77 14:07:00 Test Item Value Reference Range Interpretation Comments Phosphorus (test code = Phosphorus) 4.4 2.5-4.5 N [facility] AustinXchtltjGJJPXJDFT9477-00-28 14:07:00 Test Item Value Reference Range Interpretation Comments Magnesium Lvl (test code = Magnesium 1.6 1.8-2.4 L Lvl) [facility] AustinTgecjhvWPXKPSJCW2873-73-58 14:07:00 Test Item Value Reference Range Interpretation Comments Phosphorus (test code = Phosphorus) 4.4 2.5-4.5 N [facility] AustinZbtdtukSXGCEEWGQ9130-84-33 14:07:00 Test Item Value Reference Range Interpretation Comments Magnesium Lvl (test code = Magnesium 1.6 1.8-2.4 L Lvl) [facility] AustinGdmiaztUJJSIMDZJ8286-97-96 14:07:00 Test Item Value Reference Range Interpretation Comments Phosphorus (test code = Phosphorus) 4.4 2.5-4.5 N [facility] AustinOhxuzbzBATRWRAQM0139-30-57 14:07:00 Test Item Value Reference Range Interpretation Comments Magnesium Lvl (test code = Magnesium 1.6 1.8-2.4 L Lvl) [facility] AustinHgomfnkTIVTQXKXY8393-91-33 14:07:00 Test Item Value Reference Range Interpretation Comments Phosphorus (test code = Phosphorus) 4.4 2.5-4.5 N [facility] AustinJbzgkoxQUEOHOQLA6575-52-19 14:07:00 Test Item Value Reference Range Interpretation Comments Magnesium Lvl (test code = Magnesium 1.6 1.8-2.4 L Lvl) [facility] AustinUtpgtyqYEIXBBRIL9521-15-90 14:07:00 Test Item Value Reference Range Interpretation Comments Phosphorus (test code = Phosphorus) 4.4 2.5-4.5 N [facility] AustinIsotdalYNGRATXBO9558-78-83 14:07:00 Test Item Value Reference Range Interpretation Comments Magnesium Lvl (test code = Magnesium 1.6 1.8-2.4 L Lvl) [facility] GLUCOSE YHVYDWO1972-57-73 14:01:00 Test Item Value Reference Range Interpretation Comments Gluc POC Lifscn (test code = Gluc POC no gt 70-99 A Lifscn) [facility] GLUCOSE XLHRLQA4740-94-14 14:01:00 Test Item Value Reference Range Interpretation Comments Gluc POC Lifscn (test code = Gluc POC no gt 70-99 A Lifscn) [facility] GLUCOSE XIBDVZN9509-71-94 14:01:00 Test Item Value Reference Range Interpretation Comments Gluc POC Lifscn (test code = Gluc POC no gt 70-99 A Lifscn) [facility] GLUCOSE AWTPGZU5830-68-61 14:01:00 Test Item Value Reference Range Interpretation Comments Gluc POC Lifscn (test code = Gluc POC no gt 70-99 A Lifscn) [facility] GLUCOSE EIVRVTI7824-73-45 14:01:00 Test Item Value Reference Range Interpretation Comments Gluc POC Lifscn (test code = Gluc POC no gt 70-99 A Lifscn) [facility] AustinXehrkqpWICQWIAQH6550-98-63 13:52:00 Test Item Value Reference Range Interpretation Comments pO2 Roberth (test code = pO2 Roberth) 24 20-49 N [facility] AustinXqwaljwECZKMFOBH0269-78-69 13:52:00 Test Item Value Reference Range Interpretation Comments HCO3 Roberth (test code = HCO3 Roberth) 32.0 22.0-26.0 H [facility] AustinUfxxqxkMBBKKKROC4893-52-48 13:52:00 Test Item Value Reference Range Interpretation Comments pCO2 Roberth (test code = pCO2 Roberth) 44 38-52 N [facility] AustinQrjnvdeZQDPVYHHS4392-71-71 13:52:00 Test Item Value Reference Range Interpretation Comments BE Roberth (test code = 7 See_Comment H [Automa rohit message] The BE Roberth) system which ge nerated this result transmit rohit reference range : <=2. The reference range was not used to interpr et this result as reji l/abnormal. [facility] AustinAhukvquUGDLTKJST4207-66-81 13:52:00 Test Item Value Reference Range Interpretation Comments O2 Sat Roberth (test code = O2 Sat Roberth) 48.0 40.0-70.0 N [facility] AustinVktcjfjLXVQSBVCI2985-89-40 13:52:00 Test Item Value Reference Range Interpretation Comments Temp Roberth (test code = Temp Roberth) 37.0 [facility] AustinPzscrefCAMVWQYID2537-87-02 13:52:00 Test Item Value Reference Range Interpretation Comments pH Roberth (test code = pH Roberth) 7.47 7.28-7.42 H [facility] AustinMrvztasLOLIPACMY0851-48-14 13:52:00 Test Item Value Reference Range Interpretation Comments Calcium Lvl (test code = Calcium Lvl) 10.1 8.5-10.5 N [facility] AustinQohjyikJWJABIYNA9820-22-40 13:52:00 Test Item Value Reference Range Interpretation Comments Chloride Lvl (test code = Chloride Lvl) 92 95-109 L [facility] AustinLjaexkpYPJWSLESI2444-34-28 13:52:00 Test Item Value Reference Range Interpretation Comments CO2 (test code = CO2) 30 24-32 N [facility] AustinWnhlfyvJDGLLUVMJ3917-53-14 13:52:00 Test Item Value Reference Range Interpretation Comments Potassium Lvl (test code = Potassium 3.5 3.5-5.1 N Lvl) [facility] AustinWjephjfKDNQXZDJO8831-57-77 13:52:00 Test Item Value Reference Range Interpretation Comments Sodium Lvl (test code = Sodium Lvl) 133 135-145 L [facility] AustinBxmvajiUEVOZWALG9871-13-01 13:52:00 Test Item Value Reference Range Interpretation Comments Creatinine Lvl (test code = Creatinine 1.3 0.5-1.4 N Lvl) [facility] AustinSqrugbrOBKJCJFFQ2268-38-44 13:52:00 Test Item Value Reference Range Interpretation Comments Glucose Lvl (test code = Glucose Lvl) 383 70-99 H [facility] AustinTmldfbmVTIJAIJIX8879-21-70 13:52:00 Test Item Value Reference Range Interpretation Comments BUN (test code = BUN) 17 7-22 N [facility] AustinGqozgpaAWADOMIPY0814-36-37 13:52:00 Test Item Value Reference Range Interpretation Comments AGAP (test code = AGAP) 14.5 10.0-20.0 N [facility]WrqegbdRPMTWAGVAX2093-68-57 13:52:00 Test Item Value Reference Range Interpretation Comments MPV (test code = MPV) 12.0 7.4-10.4 H [facility]anoIumjjwrMRPIENUCJW3215-85-06 13:52:00 Test Item Value Reference Range Interpretation Comments Platelet (test code = Platelet) 226 133-450 N [facility]anoIiqnfmoVCRPPCAWHP7179-11-60 13:52:00 Test Item Value Reference Range Interpretation Comments MCHC (test code = MCHC) 33.7 32.0-36.0 N [facility]anoPwmifndQLOLKFMWBA7783-90-26 13:52:00 Test Item Value Reference Range Interpretation Comments MCH (test code = MCH) 28.5 pg 27.0-31.0 N [facility]anoMpdexgqJCCNKPOPGW8011-01-06 13:52:00 Test Item Value Reference Range Interpretation Comments RDW (test code = RDW) 15.1 11.5-14.5 H [facility]anoGimaolxKRXXDVLMUF4435-74-15 13:52:00 Test Item Value Reference Range Interpretation Comments MCV (test code = MCV) 84.6 81.0-99.0 N [facility]anoHawvfveUZGHQURZOM7978-92-38 13:52:00 Test Item Value Reference Range Interpretation Comments Hct (test code = Hct) 36.4 36.0-48.0 N [facility]anoJvtsmcrAACDNCBFTU0732-28-50 13:52:00 Test Item Value Reference Range Interpretation Comments Hgb (test code = Hgb) 12.3 12.0-16.0 N [facility]anoCqowsiiAYSGFBTRGJ7491-40-33 13:52:00 Test Item Value Reference Range Interpretation Comments RBC (test code = RBC) 4.30 4.20-5.40 N [facility]anoUhjjwxsSOEFBWHJTJ4127-37-72 13:52:00 Test Item Value Reference Range Interpretation Comments WBC (test code = WBC) 11.7 3.7-10.4 H [facility] PlanoAlechodSKLPAJXULQ4922-07-56 13:52:00 Test Item Value Reference Range Interpretation Comments Monocytes (test code = Monocytes) 2.9 2.0-12.0 N [facility] PlanoHexblyfFLJAJORTMF2900-33-69 13:52:00 Test Item Value Reference Range Interpretation Comments Eosinophils (test code = 0.2 See_Comment N [A utomated message] The Eosinophils) system which ge nerated this result tra nsmitted reference range : <=4.0. The reference r leo was not used to int erpret this result as normal/abnormal . [facility]anoGbsjckvVPHQEOTANK8568-27-76 13:52:00 Test Item Value Reference Range Interpretation Comments Basophils (test code = 0.0 See_Comment N [Aut omated message] The Basophils) system which ge nerated this result tra nsmitted reference range : <=1.0. The reference r leo was not used to int erpret this result as normal/abnormal . [facility]anoGelunybTIECOFWEJJ0923-72-14 13:52:00 Test Item Value Reference Range Interpretation Comments Eosinophils # (test code 0.0 See_Comment N [A utomated message] The = Eosinophils #) system [facility] generated this result tra nsmitted reference range : <=0.5. The reference r leo was not used to int erpret this result as normal/abnormal . [facility]anoVnnqfkdKXXHTDAFGW7494-55-41 13:52:00 Test Item Value Reference Range Interpretation Comments Monocytes # (test code 0.3 See_Comment N [Aut omated message] The = Monocytes #) system which generated this result tra nsmitted reference range : <=0.8. The reference r leo was not used to int erpret this result as normal/abnormal . [facility] PlanoIrwidzcYPFOZANWNC6706-57-79 13:52:00 Test Item Value Reference Range Interpretation Comments Segs (test code = Segs) 92.0 45.0-75.0 H [facility] PlanoRyaolxeEGFSUQSOBN9180-22-67 13:52:00 Test Item Value Reference Range Interpretation Comments Lymphocytes (test code = Lymphocytes) 4.9 20.0-40.0 L [facility] PlanoDrjozzhGSHPUJIXSH7848-10-70 13:52:00 Test Item Value Reference Range Interpretation Comments Spherocyte (test code = Rare A Spherocyte) *ABN*(09/18/2011 08:52:00) [facility] PlanoBoutufkKOGPSLGAXM7666-57-98 13:52:00 Test Item Value Reference Range Interpretation Comments Large Plt (test code = Slight *ABN*(09/18/2011 A Large Plt) 08:52:00) [facility]DkjxjlxBEUODYMFUH7975-88-48 13:52:00 Test Item Value Reference Range Interpretation Comments Microcyte (test code = 1+ *ABN*(09/18/2011 A Microcyte) 08:52:00) [facility]anoEpkewdsOSUWNXIFSN8103-48-47 13:52:00 Test Item Value Reference Range Interpretation Comments Schistocyte (test code = Schistocyte) Rare [facility]anoTszfdreBKYYKZWBRF2301-85-39 13:52:00 Test Item Value Reference Range Interpretation Comments Macrocyte (test code = 1+ *ABN*(09/18/2011 A Macrocyte) 08:52:00) [facility]anoRtewotyGJSQGBGMSA6170-71-83 13:52:00 Test Item Value Reference Range Interpretation Comments Lymphocytes # (test code = Lymphocytes 0.6 1.0-5.5 L #) [facility]anoYgmpfnzXZSEOVUYKE1816-45-65 13:52:00 Test Item Value Reference Range Interpretation Comments Segs-Bands # (test code = Segs-Bands #) 10.8 1.5-8.1 H [facility]anoYxhgqexHYQZXVOERW8574-23-14 13:52:00 Test Item Value Reference Range Interpretation Comments Basophils # (test code 0.0 See_Comment N [Aut omated message] The = Basophils #) system which generated this result tra nsmitted reference range : <=0.2. The reference r leo was not used to int erpret this result as normal/abnormal . [facility]anoKoywbuzUOXFWVNUFT1209-96-14 13:52:00 Test Item Value Reference Range Interpretation Comments Anisocyte (test code = 1+ *ABN*(09/18/2011 A Anisocyte) 08:52:00) [facility]CkgmfuuFKRBACWJWS2697-43-26 13:52:00 Test Item Value Reference Range Interpretation Comments CDC-HIV 1/2 Ab (test Negative *NA*(09/18/2011 code = CDC-HIV 1/2 08:52:00) Ab) [facility] AustinFfzlnbcAABVLYXZH6443-66-83 13:52:00 Test Item Value Reference Range Interpretation Comments pO2 Roberth (test code = pO2 Roberth) 24 20-49 N [facility] AustinAcmdsjvPCRILNQIJ5293-86-05 13:52:00 Test Item Value Reference Range Interpretation Comments HCO3 Roberth (test code = HCO3 Roberth) 32.0 22.0-26.0 H [facility] AustinLifpgnoPOGSZWRUG1252-58-25 13:52:00 Test Item Value Reference Range Interpretation Comments pCO2 Roberth (test code = pCO2 Roberth) 44 38-52 N [facility] AustinJfshxlhIBMHIPYSV3896-00-51 13:52:00 Test Item Value Reference Range Interpretation Comments BE Roberth (test code = 7 See_Comment H [Automa rohit message] The BE Roberth) system which ge nerated this result transmit rohit reference range : <=2. The reference range was not used to interpr et this result as reji l/abnormal. [facility] AustinHipxufjKLIOEJAWQ1797-99-45 13:52:00 Test Item Value Reference Range Interpretation Comments O2 Sat Roberth (test code = O2 Sat Roberth) 48.0 40.0-70.0 N [facility] AustinUbrgqiuSHZZZYNIG7868-18-16 13:52:00 Test Item Value Reference Range Interpretation Comments Temp Roberth (test code = Temp Roberth) 37.0 [facility] AustinArjkxwmCWULOXSRN7492-84-00 13:52:00 Test Item Value Reference Range Interpretation Comments pH Roberth (test code = pH Roberth) 7.47 7.28-7.42 H [facility] AustinDeplufrLQJSLDJVU5440-36-58 13:52:00 Test Item Value Reference Range Interpretation Comments Calcium Lvl (test code = Calcium Lvl) 10.1 8.5-10.5 N [facility] AustinGptuyopLMFZHOENN0339-59-19 13:52:00 Test Item Value Reference Range Interpretation Comments Chloride Lvl (test code = Chloride Lvl) 92 95-109 L [facility] AustinJecdttsEMZBHJPAC0279-14-12 13:52:00 Test Item Value Reference Range Interpretation Comments CO2 (test code = CO2) 30 24-32 N [facility] AustinZiijjprXGLXRDSAS7896-73-29 13:52:00 Test Item Value Reference Range Interpretation Comments Potassium Lvl (test code = Potassium 3.5 3.5-5.1 N Lvl) [facility] AustinOkappnuEIAGMCOXL8648-06-32 13:52:00 Test Item Value Reference Range Interpretation Comments Sodium Lvl (test code = Sodium Lvl) 133 135-145 L [facility] AustinVunaoqnDPAVHHEOA5849-31-21 13:52:00 Test Item Value Reference Range Interpretation Comments Creatinine Lvl (test code = Creatinine 1.3 0.5-1.4 N Lvl) [facility] AustinHyzscjbRPCCYNZFB4870-19-78 13:52:00 Test Item Value Reference Range Interpretation Comments Glucose Lvl (test code = Glucose Lvl) 383 70-99 H [facility] AustinJbrdewoZTJAFVJND5913-70-73 13:52:00 Test Item Value Reference Range Interpretation Comments BUN (test code = BUN) 17 7-22 N [facility] AustinVztbcmxXRIGJXZIW3863-74-89 13:52:00 Test Item Value Reference Range Interpretation Comments AGAP (test code = AGAP) 14.5 10.0-20.0 N [facility]anoFsurddcOTSWSQZCES4876-38-55 13:52:00 Test Item Value Reference Range Interpretation Comments MPV (test code = MPV) 12.0 7.4-10.4 H [facility]anoPualktaFKVMTUVJDM7000-84-89 13:52:00 Test Item Value Reference Range Interpretation Comments Platelet (test code = Platelet) 226 133-450 N [facility]anoKwgpgzlDDWLAYQMRJ6868-69-81 13:52:00 Test Item Value Reference Range Interpretation Comments MCHC (test code = MCHC) 33.7 32.0-36.0 N [facility]anoOkmdwgjUOSAJAVIYO9941-90-00 13:52:00 Test Item Value Reference Range Interpretation Comments MCH (test code = MCH) 28.5 pg 27.0-31.0 N [facility]anoOiehsjuODDSZSGBRE2364-84-91 13:52:00 Test Item Value Reference Range Interpretation Comments RDW (test code = RDW) 15.1 11.5-14.5 H [facility]anoColvjphKJMGDKBVOZ8066-67-59 13:52:00 Test Item Value Reference Range Interpretation Comments MCV (test code = MCV) 84.6 81.0-99.0 N [facility]anoSizizlhHKLXLIZQEM2333-71-67 13:52:00 Test Item Value Reference Range Interpretation Comments Hct (test code = Hct) 36.4 36.0-48.0 N [facility]anoJqxezwyQYVECEJRSB6115-97-18 13:52:00 Test Item Value Reference Range Interpretation Comments Hgb (test code = Hgb) 12.3 12.0-16.0 N [facility]anoPhzubvxKSKAKXBDUB4236-27-60 13:52:00 Test Item Value Reference Range Interpretation Comments RBC (test code = RBC) 4.30 4.20-5.40 N [facility]anoBnlpbsrRHQDQEDSCB2102-99-97 13:52:00 Test Item Value Reference Range Interpretation Comments WBC (test code = WBC) 11.7 3.7-10.4 H [facility]anoHkvrmxfCXKVDOEMUW5966-78-87 13:52:00 Test Item Value Reference Range Interpretation Comments Monocytes (test code = Monocytes) 2.9 2.0-12.0 N [facility]anoSctxilpIPBHVKOQLD4527-32-27 13:52:00 Test Item Value Reference Range Interpretation Comments Eosinophils (test code = 0.2 See_Comment N [A utomated message] The Eosinophils) system which ge nerated this result tra nsmitted reference range : <=4.0. The reference r leo was not used to int erpret this result as normal/abnormal . [facility]anoMvmxbzlMJQXFEWXLD7887-55-03 13:52:00 Test Item Value Reference Range Interpretation Comments Basophils (test code = 0.0 See_Comment N [Aut omated message] The Basophils) system which ge nerated this result tra nsmitted reference range : <=1.0. The reference r leo was not used to int erpret this result as normal/abnormal . [facility]anoCxsrkazVWQIJNMYIV1845-07-18 13:52:00 Test Item Value Reference Range Interpretation Comments Eosinophils # (test code 0.0 See_Comment N [A utomated message] The = Eosinophils #) system whic h generated this result tra nsmitted reference range : <=0.5. The reference r leo was not used to int erpret this result as normal/abnormal . [facility]anoDqdikvwUFQCLFDUAA1493-36-83 13:52:00 Test Item Value Reference Range Interpretation Comments Monocytes # (test code 0.3 See_Comment N [Aut omated message] The = Monocytes #) system which generated this result tra nsmitted reference range : <=0.8. The reference r leo was not used to int erpret this result as normal/abnormal . [facility]anoKettijtKAWFTTHASI4295-87-60 13:52:00 Test Item Value Reference Range Interpretation Comments Segs (test code = Segs) 92.0 45.0-75.0 H [facility]anoYuqwaerBLJEHBMTDR1888-51-72 13:52:00 Test Item Value Reference Range Interpretation Comments Lymphocytes (test code = Lymphocytes) 4.9 20.0-40.0 L [facility]anoVjjmnrcDNPVWFOLQN7217-39-08 13:52:00 Test Item Value Reference Range Interpretation Comments Spherocyte (test code = Rare A Spherocyte) *ABN*(09/18/2011 08:52:00) [facility]anoCemabwtRTSGGGVJHF7323-14-12 13:52:00 Test Item Value Reference Range Interpretation Comments Large Plt (test code = Slight *ABN*(09/18/2011 A Large Plt) 08:52:00) [facility]anoNbscgykMHPCNJUSDY5787-98-07 13:52:00 Test Item Value Reference Range Interpretation Comments Microcyte (test code = 1+ *ABN*(09/18/2011 A Microcyte) 08:52:00) [facility]anoDllxvjkNLKLGRSBLB0115-34-04 13:52:00 Test Item Value Reference Range Interpretation Comments Schistocyte (test code = Schistocyte) Rare [facility]anoXdugbdkNDPANLMRCE0712-45-43 13:52:00 Test Item Value Reference Range Interpretation Comments Macrocyte (test code = 1+ *ABN*(09/18/2011 A Macrocyte) 08:52:00) [facility]anoMkenyicSFINAFFNTH8224-68-81 13:52:00 Test Item Value Reference Range Interpretation Comments Lymphocytes # (test code = Lymphocytes 0.6 1.0-5.5 L #) [facility]anoNqnsawnOSQIUTBBUL1089-92-38 13:52:00 Test Item Value Reference Range Interpretation Comments Segs-Bands # (test code = Segs-Bands #) 10.8 1.5-8.1 H [facility]anoOgdbpeoGCVFTXSVNA4163-43-70 13:52:00 Test Item Value Reference Range Interpretation Comments Basophils # (test code 0.0 See_Comment N [Aut omated message] The = Basophils #) system which generated this result tra nsmitted reference range : <=0.2. The reference r leo was not used to int erpret this result as normal/abnormal . [facility]izpcfrCQRIZPQJTC7597-69-81 13:52:00 Test Item Value Reference Range Interpretation Comments Anisocyte (test code = 1+ *ABN*(09/18/2011 A Anisocyte) 08:52:00) [facility] CenterQoxgpvqEXQGURLIVP0754-10-23 13:52:00 Test Item Value Reference Range Interpretation Comments CDC-HIV 1/2 Ab (test Negative *NA*(09/18/2011 code = CDC-HIV 1/2 08:52:00) Ab) [facility] AustinKejbsnhJOXWPFRIO7429-30-37 13:52:00 Test Item Value Reference Range Interpretation Comments pO2 Roberth (test code = pO2 Roberth) 24 20-49 N [facility] AustinRwjrlpoZYTWZHNAH9525-71-82 13:52:00 Test Item Value Reference Range Interpretation Comments HCO3 Roberth (test code = HCO3 Roberth) 32.0 22.0-26.0 H [facility] AustinNcvhvanWDBIWKKAJ7556-75-55 13:52:00 Test Item Value Reference Range Interpretation Comments pCO2 Roberth (test code = pCO2 Roberth) 44 38-52 N [facility] AustinQevaqzyLPKFZJBSA5562-79-20 13:52:00 Test Item Value Reference Range Interpretation Comments BE Roberth (test code = 7 See_Comment H [Automa rohit message] The BE Roberth) system which ge nerated this result transmit rohit reference range : <=2. The reference range was not used to interpr et this result as reji l/abnormal. [facility] AustinNbuadjvMFENSYVLH6579-00-29 13:52:00 Test Item Value Reference Range Interpretation Comments O2 Sat Roberth (test code = O2 Sat Roberth) 48.0 40.0-70.0 N [facility] AustinTvgfmocXHLTGFOLN0500-16-48 13:52:00 Test Item Value Reference Range Interpretation Comments Temp Roberth (test code = Temp Roberth) 37.0 [facility] AustinBfqhfunGOLUSLONG5309-28-37 13:52:00 Test Item Value Reference Range Interpretation Comments pH Roberth (test code = pH Roberth) 7.47 7.28-7.42 H [facility] AustinWvvtrzgPRVQXLWEA9775-35-94 13:52:00 Test Item Value Reference Range Interpretation Comments Calcium Lvl (test code = Calcium Lvl) 10.1 8.5-10.5 N [facility] AustinRriiiiaUOKHYIARP3995-15-93 13:52:00 Test Item Value Reference Range Interpretation Comments Chloride Lvl (test code = Chloride Lvl) 92 95-109 L [facility] AustinHhtxfayFWEAWWVXT9156-28-19 13:52:00 Test Item Value Reference Range Interpretation Comments CO2 (test code = CO2) 30 24-32 N [facility] AustinPpneymcRWTBBVVIX2931-32-70 13:52:00 Test Item Value Reference Range Interpretation Comments Potassium Lvl (test code = Potassium 3.5 3.5-5.1 N Lvl) [facility] AustinHqgacejTQJKRRNXR9517-18-41 13:52:00 Test Item Value Reference Range Interpretation Comments Sodium Lvl (test code = Sodium Lvl) 133 135-145 L [facility] AustinWwqkipzCICZKCZHU1366-21-34 13:52:00 Test Item Value Reference Range Interpretation Comments Creatinine Lvl (test code = Creatinine 1.3 0.5-1.4 N Lvl) [facility] AustinGzyzsbxUAQDEFEAV5773-60-52 13:52:00 Test Item Value Reference Range Interpretation Comments Glucose Lvl (test code = Glucose Lvl) 383 70-99 H [facility] AustinOpddtupOGZFJLDDL4099-35-78 13:52:00 Test Item Value Reference Range Interpretation Comments BUN (test code = BUN) 17 7-22 N [facility] AustinXitjokrXYYHCYWGW5329-73-79 13:52:00 Test Item Value Reference Range Interpretation Comments AGAP (test code = AGAP) 14.5 10.0-20.0 N [facility]anoGaxdpaoIKBFHQHSSV8369-56-17 13:52:00 Test Item Value Reference Range Interpretation Comments MPV (test code = MPV) 12.0 7.4-10.4 H [facility]anoOhjrdyqLWXRPOPLPT9011-92-21 13:52:00 Test Item Value Reference Range Interpretation Comments Platelet (test code = Platelet) 226 133-450 N [facility]anoTslektnKGQFDDSGQA3320-91-28 13:52:00 Test Item Value Reference Range Interpretation Comments MCHC (test code = MCHC) 33.7 32.0-36.0 N [facility]anoKpchnhqWVLZKGPOGN7382-22-32 13:52:00 Test Item Value Reference Range Interpretation Comments MCH (test code = MCH) 28.5 pg 27.0-31.0 N [facility]anoMpvzhxaWAVBWOULUF3951-10-31 13:52:00 Test Item Value Reference Range Interpretation Comments RDW (test code = RDW) 15.1 11.5-14.5 H [facility]anoLnfutwhJMEQPOCCOF0631-09-58 13:52:00 Test Item Value Reference Range Interpretation Comments MCV (test code = MCV) 84.6 81.0-99.0 N [facility]anoLfinnhcLFZYPCLCCF5379-37-75 13:52:00 Test Item Value Reference Range Interpretation Comments Hct (test code = Hct) 36.4 36.0-48.0 N [facility]anoOosqwasDYCTATZESU3686-45-48 13:52:00 Test Item Value Reference Range Interpretation Comments Hgb (test code = Hgb) 12.3 12.0-16.0 N [facility]anoGmiqlhzKPAMZKTMCY6870-43-21 13:52:00 Test Item Value Reference Range Interpretation Comments RBC (test code = RBC) 4.30 4.20-5.40 N [facility]anoCphwgxiQJAYFPIWWJ7960-46-86 13:52:00 Test Item Value Reference Range Interpretation Comments WBC (test code = WBC) 11.7 3.7-10.4 H [facility]anoTjofqrpQVURJPLVAT5918-43-34 13:52:00 Test Item Value Reference Range Interpretation Comments Monocytes (test code = Monocytes) 2.9 2.0-12.0 N [facility]anoOswjhbsPRBKYWTSQO7647-89-04 13:52:00 Test Item Value Reference Range Interpretation Comments Eosinophils (test code = 0.2 See_Comment N [A utomated message] The Eosinophils) system which ge nerated this result tra nsmitted reference range : <=4.0. The reference r leo was not used to int erpret this result as normal/abnormal . [facility]anoLbuhxxwOLLKAKGDHA4980-68-29 13:52:00 Test Item Value Reference Range Interpretation Comments Basophils (test code = 0.0 See_Comment N [Aut omated message] The Basophils) system which ge nerated this result tra nsmitted reference range : <=1.0. The reference r leo was not used to int erpret this result as normal/abnormal . [facility]anoIjweiifBLOTZJXRYL1583-03-86 13:52:00 Test Item Value Reference Range Interpretation Comments Eosinophils # (test code 0.0 See_Comment N [A utomated message] The = Eosinophils #) system whic h generated this result tra nsmitted reference range : <=0.5. The reference r leo was not used to int erpret this result as normal/abnormal . [facility]anoFgjlismZVGWNUCUEC3003-53-34 13:52:00 Test Item Value Reference Range Interpretation Comments Monocytes # (test code 0.3 See_Comment N [Aut omated message] The = Monocytes #) system which generated this result tra nsmitted reference range : <=0.8. The reference r leo was not used to int erpret this result as normal/abnormal . [facility]anoKzozyygOYLAEDNIQA6709-59-30 13:52:00 Test Item Value Reference Range Interpretation Comments Segs (test code = Segs) 92.0 45.0-75.0 H [facility]anoDlcvieuLJZEQAPYHQ9517-37-54 13:52:00 Test Item Value Reference Range Interpretation Comments Lymphocytes (test code = Lymphocytes) 4.9 20.0-40.0 L [facility]anoIqnzvljUMYRBAPJTR4732-70-27 13:52:00 Test Item Value Reference Range Interpretation Comments Spherocyte (test code = Rare A Spherocyte) *ABN*(09/18/2011 08:52:00) [facility]anoJclxbsfPVRVRCOJJZ8938-94-36 13:52:00 Test Item Value Reference Range Interpretation Comments Large Plt (test code = Slight *ABN*(09/18/2011 A Large Plt) 08:52:00) [facility]anoAhrzlegPUDHVRADTE1062-68-50 13:52:00 Test Item Value Reference Range Interpretation Comments Microcyte (test code = 1+ *ABN*(09/18/2011 A Microcyte) 08:52:00) [facility]anoQmgqlbcVQDBGVQNDY6564-06-18 13:52:00 Test Item Value Reference Range Interpretation Comments Schistocyte (test code = Schistocyte) Rare [facility]anoIfvfyyqDRNVHEABUW4785-70-84 13:52:00 Test Item Value Reference Range Interpretation Comments Macrocyte (test code = 1+ *ABN*(09/18/2011 A Macrocyte) 08:52:00) [facility]anoUgtdwyxORJWDOKJWU7163-36-27 13:52:00 Test Item Value Reference Range Interpretation Comments Lymphocytes # (test code = Lymphocytes 0.6 1.0-5.5 L #) [facility]anoKfbsyqzFGEGNWGSKU4425-83-41 13:52:00 Test Item Value Reference Range Interpretation Comments Segs-Bands # (test code = Segs-Bands #) 10.8 1.5-8.1 H [facility]TgbbdtoFXMCEBEHBA4569-59-29 13:52:00 Test Item Value Reference Range Interpretation Comments Basophils # (test code 0.0 See_Comment N [Aut omated message] The = Basophils #) system which generated this result tra nsmitted reference range : <=0.2. The reference r leo was not used to int erpret this result as normal/abnormal . [facility] CenterWyncczeXHAJLAPXQJ4903-85-11 13:52:00 Test Item Value Reference Range Interpretation Comments Anisocyte (test code = 1+ *ABN*(09/18/2011 A Anisocyte) 08:52:00) [facility] CenterWvzohvjDSYSIFRWEW1794-47-85 13:52:00 Test Item Value Reference Range Interpretation Comments CDC-HIV 1/2 Ab (test Negative *NA*(09/18/2011 code = CDC-HIV 1/2 08:52:00) Ab) [facility] AustinGqwwunwZKRTPHJBG1708-94-64 13:52:00 Test Item Value Reference Range Interpretation Comments pO2 Roberth (test code = pO2 Roberth) 24 20-49 N [facility] AustinGiesjzrBOEEGYIJI8716-64-58 13:52:00 Test Item Value Reference Range Interpretation Comments HCO3 Roberth (test code = HCO3 Roberth) 32.0 22.0-26.0 H [facility] AustinYssxdqaCWQHNDAEM8924-35-98 13:52:00 Test Item Value Reference Range Interpretation Comments pCO2 Roberth (test code = pCO2 Roberth) 44 38-52 N [facility] AustinSpbdmtzHMOYABWZM9040-16-53 13:52:00 Test Item Value Reference Range Interpretation Comments BE Roberth (test code = 7 See_Comment H [Automa rohit message] The BE Roberth) system which ge nerated this result transmit rohit reference range : <=2. The reference range was not used to interpr et this result as reji l/abnormal. [facility] AustinHbwwytvUQMATUKWO9559-80-14 13:52:00 Test Item Value Reference Range Interpretation Comments O2 Sat Roberth (test code = O2 Sat Roberth) 48.0 40.0-70.0 N [facility] AustinSfrrdgbVXFWULFVO4196-52-55 13:52:00 Test Item Value Reference Range Interpretation Comments Temp Roberth (test code = Temp Roberth) 37.0 [facility] AustinIpoqojbSUTOTDVIJ6660-97-59 13:52:00 Test Item Value Reference Range Interpretation Comments pH Roberth (test code = pH Roberth) 7.47 7.28-7.42 H [facility] AustinFjkgednQSKICBVGC4954-16-29 13:52:00 Test Item Value Reference Range Interpretation Comments Calcium Lvl (test code = Calcium Lvl) 10.1 8.5-10.5 N [facility] AustinHkxsgljOYLXTUIFQ2753-24-16 13:52:00 Test Item Value Reference Range Interpretation Comments Chloride Lvl (test code = Chloride Lvl) 92 95-109 L [facility] AustinPbqkhcbOOVFGPMHV2345-57-50 13:52:00 Test Item Value Reference Range Interpretation Comments CO2 (test code = CO2) 30 24-32 N [facility] AustinVtajvzjERKLILPQW3804-33-83 13:52:00 Test Item Value Reference Range Interpretation Comments Potassium Lvl (test code = Potassium 3.5 3.5-5.1 N Lvl) [facility] AustinCofsdhlAIZVVWSYK0836-34-49 13:52:00 Test Item Value Reference Range Interpretation Comments Sodium Lvl (test code = Sodium Lvl) 133 135-145 L [facility] AustinDvwqopmEYBGMJAZU3084-65-20 13:52:00 Test Item Value Reference Range Interpretation Comments Creatinine Lvl (test code = Creatinine 1.3 0.5-1.4 N Lvl) [facility] AustinEmeinhbLTEUCJPLL0129-56-59 13:52:00 Test Item Value Reference Range Interpretation Comments Glucose Lvl (test code = Glucose Lvl) 383 70-99 H [facility] AustinBleggstXXETEEJWB2659-20-03 13:52:00 Test Item Value Reference Range Interpretation Comments BUN (test code = BUN) 17 7-22 N [facility] AustinYgjlkxpLRPEVOHTK1131-82-81 13:52:00 Test Item Value Reference Range Interpretation Comments AGAP (test code = AGAP) 14.5 10.0-20.0 N [facility]anoBbasrmhMNFGCDWEFC4633-27-54 13:52:00 Test Item Value Reference Range Interpretation Comments MPV (test code = MPV) 12.0 7.4-10.4 H [facility] PlanoLssgaytLHRDGGPSXN7084-35-71 13:52:00 Test Item Value Reference Range Interpretation Comments Platelet (test code = Platelet) 226 133-450 N [facility] PlanoWfnxqaaOLQKIDXEFD1746-40-01 13:52:00 Test Item Value Reference Range Interpretation Comments MCHC (test code = MCHC) 33.7 32.0-36.0 N [facility] PlanoAghlsriKURDKXCVOS8424-26-73 13:52:00 Test Item Value Reference Range Interpretation Comments MCH (test code = MCH) 28.5 pg 27.0-31.0 N [facility]anoOccylqyXMFSTECBYH8740-34-30 13:52:00 Test Item Value Reference Range Interpretation Comments RDW (test code = RDW) 15.1 11.5-14.5 H [facility] PlanoCbnsxbuSORIDFROPI2710-51-74 13:52:00 Test Item Value Reference Range Interpretation Comments MCV (test code = MCV) 84.6 81.0-99.0 N [facility] PlanoOlarmfvRJYDKKQUKS3932-37-97 13:52:00 Test Item Value Reference Range Interpretation Comments Hct (test code = Hct) 36.4 36.0-48.0 N [facility] PlanoVhcwkihFOWWNZWRAJ8074-70-71 13:52:00 Test Item Value Reference Range Interpretation Comments Hgb (test code = Hgb) 12.3 12.0-16.0 N [facility] PlanoYpkblceRHOUZVVESY5213-35-50 13:52:00 Test Item Value Reference Range Interpretation Comments RBC (test code = RBC) 4.30 4.20-5.40 N [facility] PlanoUltnmddEOQMLDHULK6053-44-75 13:52:00 Test Item Value Reference Range Interpretation Comments WBC (test code = WBC) 11.7 3.7-10.4 H [facility]anoKgynitnYVAJYSDIDJ5577-61-93 13:52:00 Test Item Value Reference Range Interpretation Comments Monocytes (test code = Monocytes) 2.9 2.0-12.0 [facility] [place]BzrwkvmHONGNMTUTJ2231-57-30 13:52:00 Test Item Value Reference Range Interpretation Comments Eosinophils (test code = 0.2 See_Comment N [A utomated message] The Eosinophils) system which ge nerated this result tra nsmitted reference range : <=4.0. The reference r leo was not used to int erpret this result as normal/abnormal . [facility] [place]anoDiqcvklAAKHYUNIYV9369-08-32 13:52:00 Test Item Value Reference Range Interpretation Comments Basophils (test code = 0.0 See_Comment N [Aut omated message] The Basophils) system which ge nerated this result tra nsmitted reference range : <=1.0. The reference r leo was not used to int erpret this result as normal/abnormal . [facility] [place]anoCgjhwwjEIFESHJGAV6019-03-11 13:52:00 Test Item Value Reference Range Interpretation Comments Eosinophils # (test code 0.0 See_Comment N [A utomated message] The = Eosinophils #) system whic h generated this result tra nsmitted reference range : <=0.5. The reference r leo was not used to int erpret this result as normal/abnormal . [facility] [place]anoJyduzdbYFOVHHBYRU8833-74-49 13:52:00 Test Item Value Reference Range Interpretation Comments Monocytes # (test code 0.3 See_Comment N [Aut omated message] The = Monocytes #) system which generated this result tra nsmitted reference range : <=0.8. The reference r leo was not used to int erpret this result as normal/abnormal . [facility] [place]anoVtwbhxfVFNOPCISXZ0593-55-48 13:52:00 Test Item Value Reference Range Interpretation Comments Segs (test code = Segs) 92.0 45.0-75.0 H [facility] [place]anoYdxfgwuAPDEQMWTXI5174-35-89 13:52:00 Test Item Value Reference Range Interpretation Comments Lymphocytes (test code = Lymphocytes) 4.9 20.0-40.0 L [facility] [place]anoGrhejtwQUHCSMVWAR6676-60-58 13:52:00 Test Item Value Reference Range Interpretation Comments Spherocyte (test code = Rare A Spherocyte) *ABN*(09/18/2011 08:52:00) [facility] [place]anoEjixkahIYUYQCKKGX2109-20-27 13:52:00 Test Item Value Reference Range Interpretation Comments Large Plt (test code = Slight *ABN*(09/18/2011 A Large Plt) 08:52:00) [facility] [place]anoGgsvnurRIGYPGFPZZ1931-86-91 13:52:00 Test Item Value Reference Range Interpretation Comments Microcyte (test code = 1+ *ABN*(09/18/2011 A Microcyte) 08:52:00) [facility] [place]anoArghgyjQUGKVXSZJP4349-20-33 13:52:00 Test Item Value Reference Range Interpretation Comments Schistocyte (test code = Schistocyte) Rare [facility] [place]anoHcwvonpSVJOTRYJSC9346-53-66 13:52:00 Test Item Value Reference Range Interpretation Comments Macrocyte (test code = 1+ *ABN*(09/18/2011 A Macrocyte) 08:52:00) [facility] [place]anoYenktprOHLMLUVYEP1370-82-67 13:52:00 Test Item Value Reference Range Interpretation Comments Lymphocytes # (test code = Lymphocytes 0.6 1.0-5.5 L #) [facility] [place]anoPxxyyfwPLOZDIDWBV6771-85-30 13:52:00 Test Item Value Reference Range Interpretation Comments Segs-Bands # (test code = Segs-Bands #) 10.8 1.5-8.1 H [facility] [place]anoYlragcpGSWUSBXDGO0840-31-31 13:52:00 Test Item Value Reference Range Interpretation Comments Basophils # (test code 0.0 See_Comment N [Aut omated message] The = Basophils #) system which generated this result tra nsmitted reference range : <=0.2. The reference r leo was not used to int erpret this result as normal/abnormal . [facility] [place]anoTufseoqNLOBQNZWMQ4061-47-21 13:52:00 Test Item Value Reference Range Interpretation Comments Anisocyte (test code = 1+ *ABN*(09/18/2011 A Anisocyte) 08:52:00) [facility]AfesxvxWTPLCOYNBV7747-69-77 13:52:00 Test Item Value Reference Range Interpretation Comments CDC-HIV 1/2 Ab (test Negative *NA*(09/18/2011 code = CDC-HIV 1/2 08:52:00) Ab) [facility] AustinUatpukaWDXCXBFHL4950-47-56 13:52:00 Test Item Value Reference Range Interpretation Comments pO2 Roberth (test code = pO2 Roberth) 24 20-49 N [facility] AustinPxxtdvqZDGUWMSYE5284-65-26 13:52:00 Test Item Value Reference Range Interpretation Comments HCO3 Roberth (test code = HCO3 Roberth) 32.0 22.0-26.0 H [facility] AustinCxlornyRUMSTWVOQ7179-66-24 13:52:00 Test Item Value Reference Range Interpretation Comments pCO2 Roberth (test code = pCO2 Roberth) 44 38-52 N [facility] AustinVtopifjZMHCKEREB8892-52-82 13:52:00 Test Item Value Reference Range Interpretation Comments BE Roberth (test code = 7 See_Comment H [Automa rohit message] The BE Roberth) system which ge nerated this result transmit rohit reference range : <=2. The reference range was not used to interpr et this result as reji l/abnormal. [facility] AustinMxmxdyaZAVUSYRLE6522-11-81 13:52:00 Test Item Value Reference Range Interpretation Comments O2 Sat Roberth (test code = O2 Sat Roberth) 48.0 40.0-70.0 N [facility] AustinCmvaoyqOPNXAYKTX3950-86-57 13:52:00 Test Item Value Reference Range Interpretation Comments Temp Roberth (test code = Temp Roberth) 37.0 [facility] AustinCcztxwyTDWWSMZAE8196-93-69 13:52:00 Test Item Value Reference Range Interpretation Comments pH Roberth (test code = pH Roberth) 7.47 7.28-7.42 H [facility] AustinZysbtcnRGAOZOFTA0570-39-09 13:52:00 Test Item Value Reference Range Interpretation Comments Calcium Lvl (test code = Calcium Lvl) 10.1 8.5-10.5 N [facility] AustinGkfbxkfNRJHONYJK7871-98-58 13:52:00 Test Item Value Reference Range Interpretation Comments Chloride Lvl (test code = Chloride Lvl) 92 95-109 L [facility] AustinKijgspfDBYTWDIDE1780-50-96 13:52:00 Test Item Value Reference Range Interpretation Comments CO2 (test code = CO2) 30 24-32 N [facility] AustinKuugkobETCTWQVVJ6600-24-32 13:52:00 Test Item Value Reference Range Interpretation Comments Potassium Lvl (test code = Potassium 3.5 3.5-5.1 N Lvl) [facility] AustinYbdpeexTLFYYPCCT5513-38-60 13:52:00 Test Item Value Reference Range Interpretation Comments Sodium Lvl (test code = Sodium Lvl) 133 135-145 L [facility] AustinUxfloucWZORMBQJA1755-80-56 13:52:00 Test Item Value Reference Range Interpretation Comments Creatinine Lvl (test code = Creatinine 1.3 0.5-1.4 N Lvl) [facility] AustinWttsqpyADNRLIQDT0582-68-39 13:52:00 Test Item Value Reference Range Interpretation Comments Glucose Lvl (test code = Glucose Lvl) 383 70-99 H [facility] AustinQpzjweoNNZCLOWOR2755-78-30 13:52:00 Test Item Value Reference Range Interpretation Comments BUN (test code = BUN) 17 7-22 N [facility] AustinCyxzsyhRJCKFDFXD3705-58-52 13:52:00 Test Item Value Reference Range Interpretation Comments AGAP (test code = AGAP) 14.5 10.0-20.0 N [facility] [place]anoMywbwwvEZPNJCKZPZ6465-68-45 13:52:00 Test Item Value Reference Range Interpretation Comments MPV (test code = MPV) 12.0 7.4-10.4 H [facility] [place]anoUwvuhcgRWAZXWZMIT5976-53-82 13:52:00 Test Item Value Reference Range Interpretation Comments Platelet (test code = Platelet) 226 133-450 N [facility] PlanoZdpovoqZGGEWXQWDM0605-69-55 13:52:00 Test Item Value Reference Range Interpretation Comments MCHC (test code = MCHC) 33.7 32.0-36.0 N [facility] [place]anoQaozlgeSDCMCSVHUC2253-32-77 13:52:00 Test Item Value Reference Range Interpretation Comments MCH (test code = MCH) 28.5 pg 27.0-31.0 N [facility] [place]anoUuoashcHHEEXXLIMU3486-36-32 13:52:00 Test Item Value Reference Range Interpretation Comments RDW (test code = RDW) 15.1 11.5-14.5 H [facility] [place]anoTizgrdhXSSLGXWIWO9641-71-84 13:52:00 Test Item Value Reference Range Interpretation Comments MCV (test code = MCV) 84.6 81.0-99.0 N [facility] [place]anoVdddagiBKJVRQMYNI9932-07-94 13:52:00 Test Item Value Reference Range Interpretation Comments Hct (test code = Hct) 36.4 36.0-48.0 N [facility] [place]anoEfhfthlJQKXLITFSY2668-08-49 13:52:00 Test Item Value Reference Range Interpretation Comments Hgb (test code = Hgb) 12.3 12.0-16.0 N [facility] [place]anoOwsirglXIARCEUECE4656-83-71 13:52:00 Test Item Value Reference Range Interpretation Comments RBC (test code = RBC) 4.30 4.20-5.40 N [facility] [place]anoKmzszsqSAUVYYXQGW7789-81-94 13:52:00 Test Item Value Reference Range Interpretation Comments WBC (test code = WBC) 11.7 3.7-10.4 H [facility] [place]anoVyitafpRZNPFUVWTD7754-02-41 13:52:00 Test Item Value Reference Range Interpretation Comments Monocytes (test code = Monocytes) 2.9 2.0-12.0 N [facility] [place]anoEmrtlfoDBQXSEJIET1519-89-68 13:52:00 Test Item Value Reference Range Interpretation Comments Eosinophils (test code = 0.2 See_Comment N [A utomated message] The Eosinophils) system which ge nerated this result tra nsmitted reference range : <=4.0. The reference r leo was not used to int erpret this result as normal/abnormal . [facility] [place]anoIfbogfbHEETZIMMPW0168-61-88 13:52:00 Test Item Value Reference Range Interpretation Comments Basophils (test code = 0.0 See_Comment N [Aut omated message] The Basophils) system which ge nerated this result tra nsmitted reference range : <=1.0. The reference r leo was not used to int erpret this result as normal/abnormal . [facility] [place]anoDstdhulTPTUNQBRPL7679-48-79 13:52:00 Test Item Value Reference Range Interpretation Comments Eosinophils # (test code 0.0 See_Comment N [A utomated message] The = Eosinophils #) system whic h generated this result tra nsmitted reference range : <=0.5. The reference r leo was not used to int erpret this result as normal/abnormal . [facility] [place]anoPvecmpoYBSEDIIDCH3192-13-62 13:52:00 Test Item Value Reference Range Interpretation Comments Monocytes # (test code 0.3 See_Comment N [Aut omated message] The = Monocytes #) system which generated this result tra nsmitted reference range : <=0.8. The reference r leo was not used to int erpret this result as normal/abnormal . [facility] [place]anoLhehfiiYKWPUVZAXN5231-62-86 13:52:00 Test Item Value Reference Range Interpretation Comments Segs (test code = Segs) 92.0 45.0-75.0 H [facility] [place]anoAlfqhodHKOCHIETXM2276-97-28 13:52:00 Test Item Value Reference Range Interpretation Comments Lymphocytes (test code = Lymphocytes) 4.9 20.0-40.0 L [facility] [place]anoMhuhxeeENEZXFYIJM7491-79-09 13:52:00 Test Item Value Reference Range Interpretation Comments Spherocyte (test code = Rare A Spherocyte) *ABN*(09/18/2011 08:52:00) [facility] [place]anoUcsuwbgYWCQBNMIJC2382-69-74 13:52:00 Test Item Value Reference Range Interpretation Comments Large Plt (test code = Slight *ABN*(09/18/2011 A Large Plt) 08:52:00) [facility] [place]anoXgrleyqAOIPSAYHQF4015-39-96 13:52:00 Test Item Value Reference Range Interpretation Comments Microcyte (test code = 1+ *ABN*(09/18/2011 A Microcyte) 08:52:00) [facility] [place]anoXergdjyYAVXFQZBAX7535-76-67 13:52:00 Test Item Value Reference Range Interpretation Comments Schistocyte (test code = Schistocyte) Rare [facility] CenterNpjzhlbOTASRTYQAZ3563-84-89 13:52:00 Test Item Value Reference Range Interpretation Comments Macrocyte (test code = 1+ *ABN*(09/18/2011 A Macrocyte) 08:52:00) [facility] [place]anoJbclipnLPXSAGBUCD6152-96-67 13:52:00 Test Item Value Reference Range Interpretation Comments Lymphocytes # (test code = Lymphocytes 0.6 1.0-5.5 L #) [facility] [place]anoHfqluisIDSDJMZZVZ7941-39-44 13:52:00 Test Item Value Reference Range Interpretation Comments Segs-Bands # (test code = Segs-Bands #) 10.8 1.5-8.1 H [facility] PlanoLvuuuyyZQNVWAZGWR3680-93-12 13:52:00 Test Item Value Reference Range Interpretation Comments Basophils # (test code 0.0 See_Comment N [Aut omated message] The = Basophils #) system which generated this result tra nsmitted reference range : <=0.2. The reference r leo was not used to int erpret this result as normal/abnormal . [facility] [place]anoYtakhmnKHMSOHYDBC1804-34-69 13:52:00 Test Item Value Reference Range Interpretation Comments Anisocyte (test code = 1+ *ABN*(09/18/2011 A Anisocyte) 08:52:00) [facility] CenterOuaavwsJVXYQVBECI8778-05-97 13:52:00 Test Item Value Reference Range Interpretation Comments CDC-HIV 1/2 Ab (test Negative *NA*(09/18/2011 code = CDC-HIV 1/2 08:52:00) Ab) [facility] GLUCOSE YNSVRZN1245-64-64 17:34:00 Test Item Value Reference Range Interpretation Comments Gluc POC Lifscn (test code = Gluc POC 215 70-99 H Lifscn) [facility] GLUCOSE BBHRUDQ1369-52-72 17:34:00 Test Item Value Reference Range Interpretation Comments Comment1 (test code = Comment1) Ravi MAYS/ [facility] GLUCOSE TJKVRAS1889-20-30 17:34:00 Test Item Value Reference Range Interpretation Comments Gluc POC Lifscn (test code = Gluc POC 215 70-99 H Lifscn) [facility] GLUCOSE UOCVAMW3708-91-08 17:34:00 Test Item Value Reference Range Interpretation Comments Comment1 (test code = Comment1) Notify RN/ [facility] GLUCOSE MSRXSTY8875-67-80 17:34:00 Test Item Value Reference Range Interpretation Comments Gluc POC Lifscn (test code = Gluc POC 215 70-99 H Lifscn) [facility] GLUCOSE LTFXHQM8377-22-73 17:34:00 Test Item Value Reference Range Interpretation Comments Comment1 (test code = Comment1) Notify RN/ [facility] GLUCOSE TWGLWUQ8520-02-86 17:34:00 Test Item Value Reference Range Interpretation Comments Gluc POC Lifscn (test code = Gluc POC 215 70-99 H Lifscn) [facility] GLUCOSE QENXGBQ8258-17-46 17:34:00 Test Item Value Reference Range Interpretation Comments Comment1 (test code = Comment1) Notify RN/ [facility] GLUCOSE QBKBOUY7497-54-92 17:34:00 Test Item Value Reference Range Interpretation Comments Gluc POC Lifscn (test code = Gluc POC 215 70-99 H Lifscn) [facility] GLUCOSE SJVWOHP7608-63-26 17:34:00 Test Item Value Reference Range Interpretation Comments Comment1 (test code = Comment1) Notify RN/ [facility] GLUCOSE YPJNVBX5206-60-16 11:43:00 Test Item Value Reference Range Interpretation Comments Comment1 (test code = Comment1) Notify RN/ [facility] GLUCOSE VMDUNSX6269-91-14 11:43:00 Test Item Value Reference Range Interpretation Comments Gluc POC Lifscn (test code = Gluc POC 91 65-110 N Lifscn) [facility] GLUCOSE [id number] 11:43:00 Test Item Value Reference Range Interpretation Comments Comment1 (test code = Comment1) Notify RN/ [facility] GLUCOSE [id number] 11:43:00 Test Item Value Reference Range Interpretation Comments Gluc POC Lifscn (test code = Gluc POC 91 65-110 N Lifscn) [facility] GLUCOSE BEKPJVF1300-06-51 11:43:00 Test Item Value Reference Range Interpretation Comments Comment1 (test code = Comment1) Notify RN/ [facility] GLUCOSE CFAOFNU7551-98-33 11:43:00 Test Item Value Reference Range Interpretation Comments Gluc POC Lifscn (test code = Gluc POC 91 65-110 N Lifscn) [facility] GLUCOSE KSZSOZK9294-74-12 11:43:00 Test Item Value Reference Range Interpretation Comments Comment1 (test code = Comment1) Notify RN/ [facility] GLUCOSE VTNKJRB4188-98-83 11:43:00 Test Item Value Reference Range Interpretation Comments Gluc POC Lifscn (test code = Gluc POC 91 65-110 N Lifscn) [facility] GLUCOSE OAUGOYQ8227-03-37 11:43:00 Test Item Value Reference Range Interpretation Comments Comment1 (test code = Comment1) Notify RN/ [facility] GLUCOSE [id number] 11:43:00 Test Item Value Reference Range Interpretation Comments Gluc POC Lifscn (test code = Gluc POC 91 65-110 N Lifscn) [facility] GLUCOSE [id number] 02:45:00 Test Item Value Reference Range Interpretation Comments Comment1 (test code = Comment1) Notify RN/ [facility] GLUCOSE [id number] 02:45:00 Test Item Value Reference Range Interpretation Comments Gluc POC Lifscn (test code = Gluc POC 148 65-110 H Lifscn) [facility] GLUCOSE [id number] 02:45:00 Test Item Value Reference Range Interpretation Comments Comment1 (test code = Comment1) Notify RN/ [facility] GLUCOSE REVJFDR6614-14-07 02:45:00 Test Item Value Reference Range Interpretation Comments Gluc POC Lifscn (test code = Gluc POC 148 65-110 H Lifscn) [facility] GLUCOSE AGTXMJM2507-71-65 02:45:00 Test Item Value Reference Range Interpretation Comments Comment1 (test code = Comment1) Notify RN/ [facility] GLUCOSE [id number] 02:45:00 Test Item Value Reference Range Interpretation Comments Gluc POC Lifscn (test code = Gluc POC 148 65-110 H Lifscn) [facility] GLUCOSE [id number] 02:45:00 Test Item Value Reference Range Interpretation Comments Comment1 (test code = Comment1) Notify RN/ [facility] GLUCOSE [id number] 02:45:00 Test Item Value Reference Range Interpretation Comments Gluc POC Lifscn (test code = Gluc POC 148 65-110 H Lifscn) [facility] GLUCOSE [id number] 02:45:00 Test Item Value Reference Range Interpretation Comments Comment1 (test code = Comment1) Riccoy RN/MD [facility] GLUCOSE [id number] 02:45:00 Test Item Value Reference Range Interpretation Comments Gluc POC Lifscn (test code = Gluc POC 148 65-110 H Lifscn) [facility] AustinDhwjinxIRHPRNKQZ4197-47-01 08:47:00 Test Item Value Reference Range Interpretation Comments Sodium Lvl (test code = Sodium Lvl) 143 135-145 N [facility] AustinTsggbcvSAGHCUXKL1601-97-96 08:47:00 Test Item Value Reference Range Interpretation Comments Glucose Lvl (test code = Glucose Lvl) 105 [facility] AustinRerxyetEFACWHGBG7036-40-55 08:47:00 Test Item Value Reference Range Interpretation Comments CO2 (test code = CO2) 29 24-32 N [facility] AustinPhpccitYLGEKBWNV0370-68-44 08:47:00 Test Item Value Reference Range Interpretation Comments Chloride Lvl (test code = Chloride Lvl) 103 95-109 N [facility] AustinJivplhbEPCLWPJTM7517-13-14 08:47:00 Test Item Value Reference Range Interpretation Comments BUN (test code = BUN) 10 7-22 N [facility] AustinKilubruQIUEXDNUC2854-69-88 08:47:00 Test Item Value Reference Range Interpretation Comments Potassium Lvl (test code = Potassium 3.8 3.5-5.1 N Lvl) [facility] AustinHnrjhjjPKOFWHUHG5718-16-92 08:47:00 Test Item Value Reference Range Interpretation Comments Creatinine Lvl (test code = Creatinine 0.6 0.5-1.4 N Lvl) [facility] AustinFgansbaBGVKFQMVG0535-63-60 08:47:00 Test Item Value Reference Range Interpretation Comments Calcium Lvl (test code = Calcium Lvl) 8.5 8.5-10.5 N [facility] AustinXmscidaSRNBPEYRR4601-20-34 08:47:00 Test Item Value Reference Range Interpretation Comments AGAP (test code = AGAP) 14.8 10.0-20.0 N [facility]RMKEBTJMHQ3453-49-91 08:47:00 Test Item Value Reference Range Interpretation Comments MCH (test code = MCH) 28.9 pg 27.0-31.0 N [facility] [place]anoCubelarYOJUGLRYTP7277-50-82 08:47:00 Test Item Value Reference Range Interpretation Comments MCV (test code = MCV) 82.1 81.0-99.0 N [facility] [place]anoQbblkyoNMRORETKPY3366-54-86 08:47:00 Test Item Value Reference Range Interpretation Comments Hct (test code = Hct) 25.9 36.0-48.0 L [facility] [place]anoGftoliyOOESDJEDAI3358-79-48 08:47:00 Test Item Value Reference Range Interpretation Comments Platelet (test code = Platelet) 233 133-450 N [facility] PlanoUnoyidaULLTAHIYPK7771-50-62 08:47:00 Test Item Value Reference Range Interpretation Comments RDW (test code = RDW) 14.5 11.5-14.5 N [facility] [place]anoOzveooaMGGTRENRZD3242-41-82 08:47:00 Test Item Value Reference Range Interpretation Comments MCHC (test code = MCHC) 35.2 32.0-36.0 N [facility] [place]anoNysvbxfTWLEEXTBKS6828-09-25 08:47:00 Test Item Value Reference Range Interpretation Comments Hgb (test code = Hgb) 9.1 12.0-16.0 L [facility] [place]anoXeochpaIYEMNLUUXR1277-77-23 08:47:00 Test Item Value Reference Range Interpretation Comments RBC (test code = RBC) 3.15 4.20-5.40 L [facility] PlanoHnsdzlhPGEVTJGEQW0589-71-38 08:47:00 Test Item Value Reference Range Interpretation Comments MPV (test code = MPV) 9.0 7.4-10.4 N [facility] PlanoZgvzxrbYNFCWSUIZD5819-76-80 08:47:00 Test Item Value Reference Range Interpretation Comments WBC (test code = WBC) 6.3 3.7-10.4 N [facility] PlanoJktwqkdCEVZAYSUMW8073-92-69 08:47:00 Test Item Value Reference Range Interpretation Comments Eosinophils # (test code 0.0 See_Comment N [A utomated message] The = Eosinophils #) system whic h generated this result tra nsmitted reference range : <=0.5. The reference r leo was not used to int erpret this result as normal/abnormal . [facility] PlanoChewyvnWVKGEYOWHA9797-13-31 08:47:00 Test Item Value Reference Range Interpretation Comments Basophils # (test code 0.0 See_Comment N [Aut omated message] The = Basophils #) system which generated this result tra nsmitted reference range : <=0.2. The reference r leo was not used to int erpret this result as normal/abnormal . [facility] PlanoZqhxanxCSTKTHOWHU5469-70-36 08:47:00 Test Item Value Reference Range Interpretation Comments Segs-Bands # (test code = Segs-Bands #) 3.8 1.5-8.1 N [facility] PlanoNicieanTDMEUBFPYY8995-10-51 08:47:00 Test Item Value Reference Range Interpretation Comments Lymphocytes # (test code = Lymphocytes 2.0 1.0-5.5 N #) [facility]anoKiyvwxoFGXQHUMFCB3717-96-93 08:47:00 Test Item Value Reference Range Interpretation Comments Basophils (test code = 0.5 See_Comment N [Aut omated message] The Basophils) system which ge nerated this result tra nsmitted reference range : <=1.0. The reference r leo was not used to int erpret this result as normal/abnormal . [facility] PlanoYioccpiOCUYMPFEUX3673-64-89 08:47:00 Test Item Value Reference Range Interpretation Comments Eosinophils (test code = 0.7 See_Comment N [A utomated message] The Eosinophils) system which ge nerated this result tra nsmitted reference range : <=4.0. The reference r leo was not used to int erpret this result as normal/abnormal . [facility] [place]anoImkpnokXGTEHECOPF0120-61-98 08:47:00 Test Item Value Reference Range Interpretation Comments Monocytes (test code = Monocytes) 6.2 2.0-12.0 N [facility] PlanoEvgekodGUUBJHNCAH9902-35-17 08:47:00 Test Item Value Reference Range Interpretation Comments Segs (test code = Segs) 61.1 45.0-75.0 N [facility] PlanoUdnqhmxFXXJMKDQDI0092-47-39 08:47:00 Test Item Value Reference Range Interpretation Comments Lymphocytes (test code = Lymphocytes) 31.5 20.0-40.0 N [facility] PlanoAvqiuhnGKVPEFIHUA8421-79-32 08:47:00 Test Item Value Reference Range Interpretation Comments Monocytes # (test code 0.4 See_Comment N [Aut omated message] The = Monocytes #) system which generated this result tra nsmitted reference range : <=0.8. The reference r leo was not used to int erpret this result as normal/abnormal . [facility] AustinHxhwokyXHDFVXCBD7743-28-70 08:47:00 Test Item Value Reference Range Interpretation Comments Sodium Lvl (test code = Sodium Lvl) 143 135-145 N [facility] AustinPnhffjqKAJWWTMID2075-47-87 08:47:00 Test Item Value Reference Range Interpretation Comments Glucose Lvl (test code = Glucose Lvl) 105 [facility] AustinIjtaynmZXZLXKOVE6668-70-47 08:47:00 Test Item Value Reference Range Interpretation Comments CO2 (test code = CO2) 29 24-32 N [facility] AustinNlrsdyjJDEXVYZNA8036-56-77 08:47:00 Test Item Value Reference Range Interpretation Comments Chloride Lvl (test code = Chloride Lvl) 103 95-109 N [facility] AustinNkcfolvFDTRYGKKL0897-50-72 08:47:00 Test Item Value Reference Range Interpretation Comments BUN (test code = BUN) 10 7-22 N [facility] AustinJmgynavZVZZDBHYE3156-46-73 08:47:00 Test Item Value Reference Range Interpretation Comments Potassium Lvl (test code = Potassium 3.8 3.5-5.1 N Lvl) [facility] AustinGpsuowhIVDZULEZB1853-09-06 08:47:00 Test Item Value Reference Range Interpretation Comments Creatinine Lvl (test code = Creatinine 0.6 0.5-1.4 N Lvl) [facility] AustinPdnuffyHEZGLKLLA1465-27-77 08:47:00 Test Item Value Reference Range Interpretation Comments Calcium Lvl (test code = Calcium Lvl) 8.5 8.5-10.5 N [facility] AustinXlpwwafYZVJECOYD8991-01-92 08:47:00 Test Item Value Reference Range Interpretation Comments AGAP (test code = AGAP) 14.8 10.0-20.0 N [facility]WgfdaepOYCFARUIIX8466-75-88 08:47:00 Test Item Value Reference Range Interpretation Comments MCH (test code = MCH) 28.9 pg 27.0-31.0 N [facility]anoQvvrubkTOUPHRFVVW0314-98-03 08:47:00 Test Item Value Reference Range Interpretation Comments MCV (test code = MCV) 82.1 81.0-99.0 N [facility]anoFadwzuxOSVUWHBGTJ2050-09-68 08:47:00 Test Item Value Reference Range Interpretation Comments Hct (test code = Hct) 25.9 36.0-48.0 L [facility]anoVztwcpsXYXAOVEOOS0406-49-25 08:47:00 Test Item Value Reference Range Interpretation Comments Platelet (test code = Platelet) 233 133-450 N [facility]anoRinercsLLXUWURMTX1596-07-14 08:47:00 Test Item Value Reference Range Interpretation Comments RDW (test code = RDW) 14.5 11.5-14.5 N [facility]anoTaxrexjZFJCDHTVDG3529-54-35 08:47:00 Test Item Value Reference Range Interpretation Comments MCHC (test code = MCHC) 35.2 32.0-36.0 N [facility]anoIkvtaasEVVJLNZZVH7855-06-15 08:47:00 Test Item Value Reference Range Interpretation Comments Hgb (test code = Hgb) 9.1 12.0-16.0 L [facility]anoGllgdugEXTZMPVKUF5819-82-48 08:47:00 Test Item Value Reference Range Interpretation Comments RBC (test code = RBC) 3.15 4.20-5.40 L [facility] [place]anoCrupsohVYKHHFSKEV8343-99-73 08:47:00 Test Item Value Reference Range Interpretation Comments MPV (test code = MPV) 9.0 7.4-10.4 N [facility]anoSgnthdzALQXODHMCA8451-89-19 08:47:00 Test Item Value Reference Range Interpretation Comments WBC (test code = WBC) 6.3 3.7-10.4 N [facility]anoSlcsqawYHIYLPCUNB6114-06-18 08:47:00 Test Item Value Reference Range Interpretation Comments Eosinophils # (test code 0.0 See_Comment N [A utomated message] The = Eosinophils #) system whic h generated this result tra nsmitted reference range : <=0.5. The reference r leo was not used to int erpret this result as normal/abnormal . [facility]anoGbotuyxMPYDGMRIKG8324-60-38 08:47:00 Test Item Value Reference Range Interpretation Comments Basophils # (test code 0.0 See_Comment N [Aut omated message] The = Basophils #) system which generated this result tra nsmitted reference range : <=0.2. The reference r leo was not used to int erpret this result as normal/abnormal . [facility]anoWnsseazNVWJEVIAWK0963-71-30 08:47:00 Test Item Value Reference Range Interpretation Comments Segs-Bands # (test code = Segs-Bands #) 3.8 1.5-8.1 N [facility]anoVxrazfyLADODFPHGC4220-76-49 08:47:00 Test Item Value Reference Range Interpretation Comments Lymphocytes # (test code = Lymphocytes 2.0 1.0-5.5 N #) [facility]anoWekaeozXMVYGQFOJO9645-78-50 08:47:00 Test Item Value Reference Range Interpretation Comments Basophils (test code = 0.5 See_Comment N [Aut omated message] The Basophils) system which ge nerated this result tra nsmitted reference range : <=1.0. The reference r leo was not used to int erpret this result as normal/abnormal . [facility]anoSfoomijXIASNPKJRW1573-49-95 08:47:00 Test Item Value Reference Range Interpretation Comments Eosinophils (test code = 0.7 See_Comment N [A utomated message] The Eosinophils) system which ge nerated this result tra nsmitted reference range : <=4.0. The reference r leo was not used to int erpret this result as normal/abnormal . [facility]anoLebitgwAZSXDRCAMD1895-63-75 08:47:00 Test Item Value Reference Range Interpretation Comments Monocytes (test code = Monocytes) 6.2 2.0-12.0 N [facility]anoUhxvqquADZEKIQUOG3542-16-33 08:47:00 Test Item Value Reference Range Interpretation Comments Segs (test code = Segs) 61.1 45.0-75.0 N [facility]anoAohhmbwANCOJJCLVP0384-57-61 08:47:00 Test Item Value Reference Range Interpretation Comments Lymphocytes (test code = Lymphocytes) 31.5 20.0-40.0 N [facility]anoMwzcjshMSIYKOLDKE6031-32-61 08:47:00 Test Item Value Reference Range Interpretation Comments Monocytes # (test code 0.4 See_Comment N [Aut omated message] The = Monocytes #) system which generated this result tra nsmitted reference range : <=0.8. The reference r leo was not used to int erpret this result as normal/abnormal . [facility] AustinSsizhacUWQBVUCEV3254-97-13 08:47:00 Test Item Value Reference Range Interpretation Comments Sodium Lvl (test code = Sodium Lvl) 143 135-145 N [facility] AustinAcogbedJKRSFBKBN5861-86-51 08:47:00 Test Item Value Reference Range Interpretation Comments Glucose Lvl (test code = Glucose Lvl) 105 [facility] AustinGgdazzfMQSIWSTSL4580-60-16 08:47:00 Test Item Value Reference Range Interpretation Comments CO2 (test code = CO2) 29 24-32 N [facility] AustinSepupnmQXXMKWGGN3000-94-15 08:47:00 Test Item Value Reference Range Interpretation Comments Chloride Lvl (test code = Chloride Lvl) 103 95-109 N [facility] AustinQegihdsHFDPNNNRH9280-28-74 08:47:00 Test Item Value Reference Range Interpretation Comments BUN (test code = BUN) 10 7-22 N [facility] AustinZfdwiypIWOITQKOP4147-21-65 08:47:00 Test Item Value Reference Range Interpretation Comments Potassium Lvl (test code = Potassium 3.8 3.5-5.1 N Lvl) [facility] AustinOgmstazNHWZCMWLV4433-67-75 08:47:00 Test Item Value Reference Range Interpretation Comments Creatinine Lvl (test code = Creatinine 0.6 0.5-1.4 N Lvl) [facility] AustinNlqkdlbEHAWXASMR5236-33-09 08:47:00 Test Item Value Reference Range Interpretation Comments Calcium Lvl (test code = Calcium Lvl) 8.5 8.5-10.5 N [facility] AustinOalmsejYGZHRYYSH4205-37-03 08:47:00 Test Item Value Reference Range Interpretation Comments AGAP (test code = AGAP) 14.8 10.0-20.0 N [facility]anoPffyxpuBNONRRVGNQ0450-97-21 08:47:00 Test Item Value Reference Range Interpretation Comments MCH (test code = MCH) 28.9 pg 27.0-31.0 N [facility]anoGmmznqeQYWLSYHVKB0064-77-75 08:47:00 Test Item Value Reference Range Interpretation Comments MCV (test code = MCV) 82.1 81.0-99.0 N [facility]anoMmnjoepXGDAFGDPSC0029-58-75 08:47:00 Test Item Value Reference Range Interpretation Comments Hct (test code = Hct) 25.9 36.0-48.0 L [facility]anoCxgdetdOWWVEPKAJE5975-95-01 08:47:00 Test Item Value Reference Range Interpretation Comments Platelet (test code = Platelet) 233 133-450 N [facility]anoMfqiwidKCVIRGPCBH4574-02-53 08:47:00 Test Item Value Reference Range Interpretation Comments RDW (test code = RDW) 14.5 11.5-14.5 N [facility]anoIeqvthmTQDAPFYTVL0524-35-63 08:47:00 Test Item Value Reference Range Interpretation Comments MCHC (test code = MCHC) 35.2 32.0-36.0 N [facility]anoIeaglrrTITWWSIHCF1800-23-29 08:47:00 Test Item Value Reference Range Interpretation Comments Hgb (test code = Hgb) 9.1 12.0-16.0 L [facility]anoSgistydBFCRFZRPOS3098-68-79 08:47:00 Test Item Value Reference Range Interpretation Comments RBC (test code = RBC) 3.15 4.20-5.40 L [facility]anoQfsiehnDEQYFXXSDA6027-63-47 08:47:00 Test Item Value Reference Range Interpretation Comments MPV (test code = MPV) 9.0 7.4-10.4 N [facility] PlanoMiolaozGCISCLENOU9757-52-01 08:47:00 Test Item Value Reference Range Interpretation Comments WBC (test code = WBC) 6.3 3.7-10.4 N [facility]anoBlfqfnoTLVIBIFANK6000-65-27 08:47:00 Test Item Value Reference Range Interpretation Comments Eosinophils # (test code 0.0 See_Comment N [A utomated message] The = Eosinophils #) system whic h generated this result tra nsmitted reference range : <=0.5. The reference r leo was not used to int erpret this result as normal/abnormal . [facility]anoJxinwqjLTSGPCIIHU6064-02-49 08:47:00 Test Item Value Reference Range Interpretation Comments Basophils # (test code 0.0 See_Comment N [Aut omated message] The = Basophils #) system which generated this result tra nsmitted reference range : <=0.2. The reference r leo was not used to int erpret this result as normal/abnormal . [facility]anoDefmidhNRPUGARPZZ1758-34-98 08:47:00 Test Item Value Reference Range Interpretation Comments Segs-Bands # (test code = Segs-Bands #) 3.8 1.5-8.1 N [facility]anoUbmxmkrRXPITHQIYD9516-50-22 08:47:00 Test Item Value Reference Range Interpretation Comments Lymphocytes # (test code = Lymphocytes 2.0 1.0-5.5 N #) [facility]anoVjbheotHFGQHEICCE6081-10-71 08:47:00 Test Item Value Reference Range Interpretation Comments Basophils (test code = 0.5 See_Comment N [Aut omated message] The Basophils) system which ge nerated this result tra nsmitted reference range : <=1.0. The reference r leo was not used to int erpret this result as normal/abnormal . [facility]anoSsneiygFMCBIFOQTK1693-72-51 08:47:00 Test Item Value Reference Range Interpretation Comments Eosinophils (test code = 0.7 See_Comment N [A utomated message] The Eosinophils) system which ge nerated this result tra nsmitted reference range : <=4.0. The reference r leo was not used to int erpret this result as normal/abnormal . [facility] PlanoJuujoluKRRLVYAAXU3347-29-32 08:47:00 Test Item Value Reference Range Interpretation Comments Monocytes (test code = Monocytes) 6.2 2.0-12.0 N [facility]anoWifpzshCLMCXLZDYJ3139-42-26 08:47:00 Test Item Value Reference Range Interpretation Comments Segs (test code = Segs) 61.1 45.0-75.0 N [facility]anoFtbosupWRNHMMZLLL7453-16-82 08:47:00 Test Item Value Reference Range Interpretation Comments Lymphocytes (test code = Lymphocytes) 31.5 20.0-40.0 N [facility]anoPonetyxLQMFAHJPLJ7507-62-51 08:47:00 Test Item Value Reference Range Interpretation Comments Monocytes # (test code 0.4 See_Comment N [Aut omated message] The = Monocytes #) system which generated this result tra nsmitted reference range : <=0.8. The reference r leo was not used to int erpret this result as normal/abnormal . [facility] AustinSkziflqIMKVIQRJJ9735-54-16 08:47:00 Test Item Value Reference Range Interpretation Comments Sodium Lvl (test code = Sodium Lvl) 143 135-145 N [facility] AustinBkrkapyVZNTXVDOK6705-23-70 08:47:00 Test Item Value Reference Range Interpretation Comments Glucose Lvl (test code = Glucose Lvl) 105 [facility] AustinNntthwpWMSQSSZKF2892-96-69 08:47:00 Test Item Value Reference Range Interpretation Comments CO2 (test code = CO2) 29 24-32 N [facility] AustinGwlwrysBBVJAZUMA7985-02-27 08:47:00 Test Item Value Reference Range Interpretation Comments Chloride Lvl (test code = Chloride Lvl) 103 95-109 N [facility] AustinBfuoijoNOFKQNJRY2989-80-70 08:47:00 Test Item Value Reference Range Interpretation Comments BUN (test code = BUN) 10 7-22 N [facility] AustinCterhleESRMKDDOT6341-86-25 08:47:00 Test Item Value Reference Range Interpretation Comments Potassium Lvl (test code = Potassium 3.8 3.5-5.1 N Lvl) [facility] AustinLfergidWUTOBQUGC4986-61-07 08:47:00 Test Item Value Reference Range Interpretation Comments Creatinine Lvl (test code = Creatinine 0.6 0.5-1.4 N Lvl) [facility] AustinMcezpviYDBHCPGHW4683-85-47 08:47:00 Test Item Value Reference Range Interpretation Comments Calcium Lvl (test code = Calcium Lvl) 8.5 8.5-10.5 N [facility] AustinQhnoctlYOSIWPYZB7979-37-98 08:47:00 Test Item Value Reference Range Interpretation Comments AGAP (test code = AGAP) 14.8 10.0-20.0 N [facility]anoXsgxeghEUJXRVXHKX5205-60-33 08:47:00 Test Item Value Reference Range Interpretation Comments MCH (test code = MCH) 28.9 pg 27.0-31.0 N [facility]anoLbekjybYKEQNALUVN1129-73-45 08:47:00 Test Item Value Reference Range Interpretation Comments MCV (test code = MCV) 82.1 81.0-99.0 N [facility]anoEvnmprbBAKWMOZSLN1008-82-55 08:47:00 Test Item Value Reference Range Interpretation Comments Hct (test code = Hct) 25.9 36.0-48.0 L [facility]anoMqpsifuKTHJTBVOZF1615-00-21 08:47:00 Test Item Value Reference Range Interpretation Comments Platelet (test code = Platelet) 233 133-450 N [facility]anoCdnvkzwHXKGTIGRMR0533-22-07 08:47:00 Test Item Value Reference Range Interpretation Comments RDW (test code = RDW) 14.5 11.5-14.5 N [facility]anoWtpuiahAEMIZPKEGV7044-71-82 08:47:00 Test Item Value Reference Range Interpretation Comments MCHC (test code = MCHC) 35.2 32.0-36.0 N [facility]anoSiknbamLTHRPWEQXQ1205-27-67 08:47:00 Test Item Value Reference Range Interpretation Comments Hgb (test code = Hgb) 9.1 12.0-16.0 L [facility]anoLzkkrmbLQYQFDMCMF4209-83-11 08:47:00 Test Item Value Reference Range Interpretation Comments RBC (test code = RBC) 3.15 4.20-5.40 L [facility]anoWysimgmAJNXBJPIKG0124-62-36 08:47:00 Test Item Value Reference Range Interpretation Comments MPV (test code = MPV) 9.0 7.4-10.4 N [facility]anoOtlzxrhLNSMLQNASV1464-69-56 08:47:00 Test Item Value Reference Range Interpretation Comments WBC (test code = WBC) 6.3 3.7-10.4 N [facility] PlanoZkcbyeeULJYPYNYJX9369-24-26 08:47:00 Test Item Value Reference Range Interpretation Comments Eosinophils # (test code 0.0 See_Comment N [A utomated message] The = Eosinophils #) system whic h generated this result tra nsmitted reference range : <=0.5. The reference r leo was not used to int erpret this result as normal/abnormal . [facility]anoEhwuoayVWGVRUZWXN8997-77-39 08:47:00 Test Item Value Reference Range Interpretation Comments Basophils # (test code 0.0 See_Comment N [Aut omated message] The = Basophils #) system which generated this result tra nsmitted reference range : <=0.2. The reference r leo was not used to int erpret this result as normal/abnormal . [facility]anoMykmlcgHIEBKQPELW7142-08-47 08:47:00 Test Item Value Reference Range Interpretation Comments Segs-Bands # (test code = Segs-Bands #) 3.8 1.5-8.1 N [facility]anoSfgdnvwNHWLHFTURS0044-47-14 08:47:00 Test Item Value Reference Range Interpretation Comments Lymphocytes # (test code = Lymphocytes 2.0 1.0-5.5 N #) [facility]anoMasikooZAYVCFQFPL9689-50-99 08:47:00 Test Item Value Reference Range Interpretation Comments Basophils (test code = 0.5 See_Comment N [Aut omated message] The Basophils) system which ge nerated this result tra nsmitted reference range : <=1.0. The reference r leo was not used to int erpret this result as normal/abnormal . [facility]anoHbwrjfwTOKANTSFDN0878-14-42 08:47:00 Test Item Value Reference Range Interpretation Comments Eosinophils (test code = 0.7 See_Comment N [A utomated message] The Eosinophils) system which ge nerated this result tra nsmitted reference range : <=4.0. The reference r leo was not used to int erpret this result as normal/abnormal . [facility]anoYbbuwryYJDEMOLWDO5889-62-11 08:47:00 Test Item Value Reference Range Interpretation Comments Monocytes (test code = Monocytes) 6.2 2.0-12.0 N [facility]anoWazmcqhBEGNVFTAGJ2638-95-95 08:47:00 Test Item Value Reference Range Interpretation Comments Segs (test code = Segs) 61.1 45.0-75.0 N [facility]anoKrxyqzvJKDXJOERBN1801-70-70 08:47:00 Test Item Value Reference Range Interpretation Comments Lymphocytes (test code = Lymphocytes) 31.5 20.0-40.0 N [facility] PlanoDonybrxAPUZXYQTYW5955-89-46 08:47:00 Test Item Value Reference Range Interpretation Comments Monocytes # (test code 0.4 See_Comment N [Aut omated message] The = Monocytes #) system which generated this result tra nsmitted reference range : <=0.8. The reference r leo was not used to int erpret this result as normal/abnormal . [facility] AustinHneziunVSMOSJPGH5090-86-92 08:47:00 Test Item Value Reference Range Interpretation Comments Sodium Lvl (test code = Sodium Lvl) 143 135-145 N [facility] AustinQytitovBXOOUUNIH2151-40-57 08:47:00 Test Item Value Reference Range Interpretation Comments Glucose Lvl (test code = Glucose Lvl) 105 [facility] AustinSfdjbdgAWNDQYXPT3320-19-87 08:47:00 Test Item Value Reference Range Interpretation Comments CO2 (test code = CO2) 29 24-32 N [facility] AustinDomjoqzSYUAEDZUQ9118-08-82 08:47:00 Test Item Value Reference Range Interpretation Comments Chloride Lvl (test code = Chloride Lvl) 103 95-109 N [facility] AustinXqysepkVVZNDFITM1956-01-35 08:47:00 Test Item Value Reference Range Interpretation Comments BUN (test code = BUN) 10 7-22 N [facility] AustinKyadcjxMOABLAFLY0641-42-63 08:47:00 Test Item Value Reference Range Interpretation Comments Potassium Lvl (test code = Potassium 3.8 3.5-5.1 N Lvl) [facility] AustinXwrgityMQLSMODOI4396-40-47 08:47:00 Test Item Value Reference Range Interpretation Comments Creatinine Lvl (test code = Creatinine 0.6 0.5-1.4 N Lvl) [facility] AustinIikcyhwSCFCSLCDQ4094-18-94 08:47:00 Test Item Value Reference Range Interpretation Comments Calcium Lvl (test code = Calcium Lvl) 8.5 8.5-10.5 N [facility] AustinLwsmdjpKKPTLMJCW5832-72-94 08:47:00 Test Item Value Reference Range Interpretation Comments AGAP (test code = AGAP) 14.8 10.0-20.0 N [facility]anoXbdmxyqKKEKBXMFTQ9776-01-97 08:47:00 Test Item Value Reference Range Interpretation Comments MCH (test code = MCH) 28.9 pg 27.0-31.0 N [facility] PlanoZmvfrjfXMKRYHYXID3408-74-45 08:47:00 Test Item Value Reference Range Interpretation Comments MCV (test code = MCV) 82.1 81.0-99.0 N [facility]anoWbqehlpJVOSJMLRAH3444-20-09 08:47:00 Test Item Value Reference Range Interpretation Comments Hct (test code = Hct) 25.9 36.0-48.0 L [facility]anoLwtlmcgUQDSELMWDX6586-03-94 08:47:00 Test Item Value Reference Range Interpretation Comments Platelet (test code = Platelet) 233 133-450 N [facility]anoKoxdlchTOCDKBOWIP2285-93-45 08:47:00 Test Item Value Reference Range Interpretation Comments RDW (test code = RDW) 14.5 11.5-14.5 N [facility]anoXomzqphZUOWLHFUIU9367-64-47 08:47:00 Test Item Value Reference Range Interpretation Comments MCHC (test code = MCHC) 35.2 32.0-36.0 N [facility]anoFbfzheyLBUQZUGEFI6360-48-87 08:47:00 Test Item Value Reference Range Interpretation Comments Hgb (test code = Hgb) 9.1 12.0-16.0 L [facility]anoHyxuiguQKYDBZDHEM1922-13-90 08:47:00 Test Item Value Reference Range Interpretation Comments RBC (test code = RBC) 3.15 4.20-5.40 L [facility]anoZhwqvxeFNNJGRBAGH3477-22-46 08:47:00 Test Item Value Reference Range Interpretation Comments MPV (test code = MPV) 9.0 7.4-10.4 N [facility]anoMlzttlbHYPQUDFEJE0209-85-72 08:47:00 Test Item Value Reference Range Interpretation Comments WBC (test code = WBC) 6.3 3.7-10.4 N [facility]anoTfgyzimUZOXNVNQFA2739-44-80 08:47:00 Test Item Value Reference Range Interpretation Comments Eosinophils # (test code 0.0 See_Comment N [A utomated message] The = Eosinophils #) system whic h generated this result tra nsmitted reference range : <=0.5. The reference r leo was not used to int erpret this result as normal/abnormal . [facility]anoDndjowjOFFZVZRLFY0931-04-42 08:47:00 Test Item Value Reference Range Interpretation Comments Basophils # (test code 0.0 See_Comment N [Aut omated message] The = Basophils #) system which generated this result tra nsmitted reference range : <=0.2. The reference r leo was not used to int erpret this result as normal/abnormal . [facility]anoPhndzkgZPMGOUYRPC3494-24-65 08:47:00 Test Item Value Reference Range Interpretation Comments Segs-Bands # (test code = Segs-Bands #) 3.8 1.5-8.1 N [facility]anoXmxleghVMPWATEEFW1317-34-78 08:47:00 Test Item Value Reference Range Interpretation Comments Lymphocytes # (test code = Lymphocytes 2.0 1.0-5.5 N #) [facility]anoCmmhposAULTCAPVUM7732-72-99 08:47:00 Test Item Value Reference Range Interpretation Comments Basophils (test code = 0.5 See_Comment N [Aut omated message] The Basophils) system which ge nerated this result tra nsmitted reference range : <=1.0. The reference r leo was not used to int erpret this result as normal/abnormal . [facility] PlanoZljzdsoYDAATIAMYB6509-95-36 08:47:00 Test Item Value Reference Range Interpretation Comments Eosinophils (test code = 0.7 See_Comment N [A utomated message] The Eosinophils) system which ge nerated this result tra nsmitted reference range : <=4.0. The reference r leo was not used to int erpret this result as normal/abnormal . [facility]anoPqsngipZWTJSGWLYP0635-32-96 08:47:00 Test Item Value Reference Range Interpretation Comments Monocytes (test code = Monocytes) 6.2 2.0-12.0 N [facility] PlanoThrnmmfIAXPABTOJU7751-25-60 08:47:00 Test Item Value Reference Range Interpretation Comments Segs (test code = Segs) 61.1 45.0-75.0 N [facility]anoExnauewYVKTXXOMHS2689-50-59 08:47:00 Test Item Value Reference Range Interpretation Comments Lymphocytes (test code = Lymphocytes) 31.5 20.0-40.0 N [facility]anoHlrhjppOYCTFYAXXL9878-52-90 08:47:00 Test Item Value Reference Range Interpretation Comments Monocytes # (test code 0.4 See_Comment N [Aut omated message] The = Monocytes #) system which generated this result tra nsmitted reference range : <=0.8. The reference r leo was not used to int erpret this result as normal/abnormal . [facility] AustinDrxxdmkHOEFIQPAR1969-26-84 10:54:00 Test Item Value Reference Range Interpretation Comments CO2 (test code = CO2) 27 24-32 N [facility] AustinNtshohdETDGXAYYJ8407-07-49 10:54:00 Test Item Value Reference Range Interpretation Comments Chloride Lvl (test code = Chloride Lvl) 104 95-109 N [facility] AustinOtdtdvtJBEPTNDYM4471-94-09 10:54:00 Test Item Value Reference Range Interpretation Comments Creatinine Lvl (test code = Creatinine 0.5 0.5-1.4 N Lvl) [facility] AustinTjqogqdVRGJPAQOU4826-78-85 10:54:00 Test Item Value Reference Range Interpretation Comments BUN (test code = BUN) 10 7-22 N [facility] AustinJnthbjqDTYUMKZYV1991-12-02 10:54:00 Test Item Value Reference Range Interpretation Comments Potassium Lvl (test code = Potassium 4.1 3.5-5.1 N Lvl) [facility] AustinTklqmbzOCVKCFILL4898-69-49 10:54:00 Test Item Value Reference Range Interpretation Comments Sodium Lvl (test code = Sodium Lvl) 141 135-145 N [facility] [place]ziDVGUNZTYH0897-10-87 10:54:00 Test Item Value Reference Range Interpretation Comments Glucose Lvl (test code = Glucose Lvl) 83 [facility] AustinAqzndrjMFHCVDNHB0206-14-69 10:54:00 Test Item Value Reference Range Interpretation Comments Calcium Lvl (test code = Calcium Lvl) 8.4 8.5-10.5 L [facility] AustinCupgeadUDEQIRQUO8224-80-57 10:54:00 Test Item Value Reference Range Interpretation Comments AGAP (test code = AGAP) 14.1 10.0-20.0 [facility]GpeheoeNDAYMPDUFX0810-60-39 10:54:00 Test Item Value Reference Range Interpretation Comments Hct (test code = Hct) 35.5 36.0-48.0 L [facility]anoEfcjlwdJBKAGVSXSA8080-32-68 10:54:00 Test Item Value Reference Range Interpretation Comments WBC (test code = WBC) 4.7 3.7-10.4 N [facility]anoPtsfmdpTMDWYXEVYG4877-95-02 10:54:00 Test Item Value Reference Range Interpretation Comments MCV (test code = MCV) 92.6 81.0-99.0 N [facility]anoWcivmdxSXIZBWQIKC4682-39-85 10:54:00 Test Item Value Reference Range Interpretation Comments MCH (test code = MCH) 31.4 pg 27.0-31.0 H [facility]anoXgwinvpZCDACHJVEL5072-26-69 10:54:00 Test Item Value Reference Range Interpretation Comments RBC (test code = RBC) 3.84 4.20-5.40 L [facility]anoUmayfloHXTUKTANSZ6236-95-89 10:54:00 Test Item Value Reference Range Interpretation Comments Hgb (test code = Hgb) 12.1 12.0-16.0 N [facility]anoWyfyxfvTGUSODUVQX9504-77-32 10:54:00 Test Item Value Reference Range Interpretation Comments Platelet (test code = Platelet) 287 133-450 N [facility]anoJqtmibaGAYJGQDQYI7177-52-35 10:54:00 Test Item Value Reference Range Interpretation Comments RDW (test code = RDW) 12.7 11.5-14.5 N [facility]anoMjcsxhjWXLTZKMRIH7392-41-02 10:54:00 Test Item Value Reference Range Interpretation Comments MCHC (test code = MCHC) 33.9 32.0-36.0 N [facility]anoZvavzfpEBZAIHIGVV3181-28-92 10:54:00 Test Item Value Reference Range Interpretation Comments MPV (test code = MPV) 7.2 7.4-10.4 L [facility]anoCjfavdhJDFFMQJXWL5048-82-20 10:54:00 Test Item Value Reference Range Interpretation Comments INR (test code = INR) 0.95 0.85-1.17 N [facility]anoAmlecumAUZREXDNMD8091-82-51 10:54:00 Test Item Value Reference Range Interpretation Comments PT (test code = PT) 12.7 s 12.0-14.7 N [facility]anoVzsgambJJCITXNKLJ8347-87-96 10:54:00 Test Item Value Reference Range Interpretation Comments PTT (test code = PTT) 28.5 s 22.9-35.8 N [facility]anoKcsglwfRTONZYTRUQ5523-46-23 10:54:00 Test Item Value Reference Range Interpretation Comments Eosinophils # (test code 0.1 See_Comment N [A utomated message] The = Eosinophils #) system whic h generated this result tra nsmitted reference range : <=0.5. The reference r leo was not used to int erpret this result as normal/abnormal . [facility]anoKdejdrkVXZEASATBE1791-93-27 10:54:00 Test Item Value Reference Range Interpretation Comments Basophils # (test code 0.0 See_Comment N [Aut omated message] The = Basophils #) system which generated this result tra nsmitted reference range : <=0.2. The reference r leo was not used to int erpret this result as normal/abnormal . [facility]anoGgvaygdCYHLXCXXHO4258-66-30 10:54:00 Test Item Value Reference Range Interpretation Comments Basophils (test code = 0.4 See_Comment N [Aut omated message] The Basophils) system which ge nerated this result tra nsmitted reference range : <=1.0. The reference r leo was not used to int erpret this result as normal/abnormal . [facility]anoSmmxrqxCOPTGZDRPB5246-69-62 10:54:00 Test Item Value Reference Range Interpretation Comments Segs-Bands # (test code = Segs-Bands #) 2.1 1.5-8.1 N [facility]anoKdzabzzKKOQCLQGZW5180-85-71 10:54:00 Test Item Value Reference Range Interpretation Comments Monocytes (test code = Monocytes) 9.0 2.0-12.0 N [facility]anoDzwexymQAJOEGXJHT6887-53-32 10:54:00 Test Item Value Reference Range Interpretation Comments Eosinophils (test code = 2.4 See_Comment N [A utomated message] The Eosinophils) system which ge nerated this result tra nsmitted reference range : <=4.0. The reference r leo was not used to int erpret this result as normal/abnormal . [facility]anoUabjhapLSHRDNAYAS4059-86-84 10:54:00 Test Item Value Reference Range Interpretation Comments Monocytes # (test code 0.4 See_Comment N [Aut omated message] The = Monocytes #) system which generated this result tra nsmitted reference range : <=0.8. The reference r leo was not used to int erpret this result as normal/abnormal . [facility]anoEgqgcsjBCNPSCKRJP3488-35-97 10:54:00 Test Item Value Reference Range Interpretation Comments Lymphocytes # (test code = Lymphocytes 2.0 1.0-5.5 N #) [facility]anoFtzymnhQTIMRPUSWY9374-61-54 10:54:00 Test Item Value Reference Range Interpretation Comments Lymphocytes (test code = Lymphocytes) 42.8 20.0-40.0 H [facility]anoVgebanbITKMWBWYUO9549-55-68 10:54:00 Test Item Value Reference Range Interpretation Comments Segs (test code = Segs) 45.4 45.0-75.0 N [facility] AustinWkdfzsjRXLQGCSHP4741-59-59 10:54:00 Test Item Value Reference Range Interpretation Comments CO2 (test code = CO2) 27 24-32 N [facility] AustinQipjxvzPXKFLKTNQ3443-88-99 10:54:00 Test Item Value Reference Range Interpretation Comments Chloride Lvl (test code = Chloride Lvl) 104 95-109 N [facility] AustinDtzzkonNOFPVJNFD9076-34-69 10:54:00 Test Item Value Reference Range Interpretation Comments Creatinine Lvl (test code = Creatinine 0.5 0.5-1.4 N Lvl) [facility] AustinUciziogYKBGRNOOS8288-47-03 10:54:00 Test Item Value Reference Range Interpretation Comments BUN (test code = BUN) 10 7-22 N [facility] AustinVdvrsbbARPUZYKRG8910-13-85 10:54:00 Test Item Value Reference Range Interpretation Comments Potassium Lvl (test code = Potassium 4.1 3.5-5.1 N Lvl) [facility] AustinEuaoskoRIFYLXVPI8570-21-19 10:54:00 Test Item Value Reference Range Interpretation Comments Sodium Lvl (test code = Sodium Lvl) 141 135-145 N [facility] AustinWlycnzvNMKDXKODG9598-02-47 10:54:00 Test Item Value Reference Range Interpretation Comments Glucose Lvl (test code = Glucose Lvl) 83 [facility] AustinHnhefgiCIXQFMLPO1024-62-68 10:54:00 Test Item Value Reference Range Interpretation Comments Calcium Lvl (test code = Calcium Lvl) 8.4 8.5-10.5 L [facility] AustinOmohznuEZPIVZMFW3516-88-97 10:54:00 Test Item Value Reference Range Interpretation Comments AGAP (test code = AGAP) 14.1 10.0-20.0 N [facility]anoNpgtitfYCQTGBRYXK4422-44-10 10:54:00 Test Item Value Reference Range Interpretation Comments Hct (test code = Hct) 35.5 36.0-48.0 L [facility]anoRmmzfujLTDPDAIARG3506-32-19 10:54:00 Test Item Value Reference Range Interpretation Comments WBC (test code = WBC) 4.7 3.7-10.4 N [facility]anoMvjvcwaCVCGMALEJL7312-40-62 10:54:00 Test Item Value Reference Range Interpretation Comments MCV (test code = MCV) 92.6 81.0-99.0 N [facility]anoYbjfecwUKGJGTKONM4030-96-21 10:54:00 Test Item Value Reference Range Interpretation Comments MCH (test code = MCH) 31.4 pg 27.0-31.0 H [facility]anoMwlyfdoMZOKMXQXLF9557-42-97 10:54:00 Test Item Value Reference Range Interpretation Comments RBC (test code = RBC) 3.84 4.20-5.40 L [facility]anoIvgdotcFUZXXRTTEH9795-57-43 10:54:00 Test Item Value Reference Range Interpretation Comments Hgb (test code = Hgb) 12.1 12.0-16.0 N [facility]anoXihkzkfUIHPDDGQEZ7983-79-20 10:54:00 Test Item Value Reference Range Interpretation Comments Platelet (test code = Platelet) 287 133-450 N [facility]anoJkevbupVIXADMWONG1435-42-49 10:54:00 Test Item Value Reference Range Interpretation Comments RDW (test code = RDW) 12.7 11.5-14.5 N [facility]anoMddvbtxZKLTUBWDRM5021-67-36 10:54:00 Test Item Value Reference Range Interpretation Comments MCHC (test code = MCHC) 33.9 32.0-36.0 N [facility]anoAxehlpnSWSCWQFRBR0154-80-58 10:54:00 Test Item Value Reference Range Interpretation Comments MPV (test code = MPV) 7.2 7.4-10.4 L [facility]anoNfmnwemZYFGRDIEHA0453-24-37 10:54:00 Test Item Value Reference Range Interpretation Comments INR (test code = INR) 0.95 0.85-1.17 N [facility]anoDxymcrjDXRQWYFOQI4073-97-40 10:54:00 Test Item Value Reference Range Interpretation Comments PT (test code = PT) 12.7 s 12.0-14.7 N [facility]anoLnqfusxEEIUGZZJUV1702-23-07 10:54:00 Test Item Value Reference Range Interpretation Comments PTT (test code = PTT) 28.5 s 22.9-35.8 N [facility]anoAkqqaruMEEOKPLUSY2858-87-43 10:54:00 Test Item Value Reference Range Interpretation Comments Eosinophils # (test code 0.1 See_Comment N [A utomated message] The = Eosinophils #) system whic h generated this result tra nsmitted reference range : <=0.5. The reference r leo was not used to int erpret this result as normal/abnormal . [facility]anoHcxidrqTRAUBZBVGM0454-88-34 10:54:00 Test Item Value Reference Range Interpretation Comments Basophils # (test code 0.0 See_Comment N [Aut omated message] The = Basophils #) system which generated this result tra nsmitted reference range : <=0.2. The reference r leo was not used to int erpret this result as normal/abnormal . [facility]anoTmiunktUEADIEFGAW2761-03-29 10:54:00 Test Item Value Reference Range Interpretation Comments Basophils (test code = 0.4 See_Comment N [Aut omated message] The Basophils) system which ge nerated this result tra nsmitted reference range : <=1.0. The reference r leo was not used to int erpret this result as normal/abnormal . [facility]anoZdpvzccVZLLPQOBNF9151-77-49 10:54:00 Test Item Value Reference Range Interpretation Comments Segs-Bands # (test code = Segs-Bands #) 2.1 1.5-8.1 N [facility]anoOxwfetaELPNPMZMRM5071-62-66 10:54:00 Test Item Value Reference Range Interpretation Comments Monocytes (test code = Monocytes) 9.0 2.0-12.0 N [facility] PlanoZdmdsefVJZPBFIXHE2717-96-63 10:54:00 Test Item Value Reference Range Interpretation Comments Eosinophils (test code = 2.4 See_Comment N [A utomated message] The Eosinophils) system which ge nerated this result tra nsmitted reference range : <=4.0. The reference r leo was not used to int erpret this result as normal/abnormal . [facility]anoTyhmqogPHEQNFEPJU6324-48-39 10:54:00 Test Item Value Reference Range Interpretation Comments Monocytes # (test code 0.4 See_Comment N [Aut omated message] The = Monocytes #) system which generated this result tra nsmitted reference range : <=0.8. The reference r leo was not used to int erpret this result as normal/abnormal . [facility]anoPouvmppLZKVKRXKXN8180-03-74 10:54:00 Test Item Value Reference Range Interpretation Comments Lymphocytes # (test code = Lymphocytes 2.0 1.0-5.5 N #) [facility]anoFfncezuSJKAYCQUWV5060-01-35 10:54:00 Test Item Value Reference Range Interpretation Comments Lymphocytes (test code = Lymphocytes) 42.8 20.0-40.0 H [facility]anoQdyqppaZFAGMJHBKV8053-19-98 10:54:00 Test Item Value Reference Range Interpretation Comments Segs (test code = Segs) 45.4 45.0-75.0 N [facility] AustinMoteqlrQJBHRBIDM9445-94-43 10:54:00 Test Item Value Reference Range Interpretation Comments CO2 (test code = CO2) 27 24-32 N [facility] AustinHkksfsxIHMSUCPQB4208-48-26 10:54:00 Test Item Value Reference Range Interpretation Comments Chloride Lvl (test code = Chloride Lvl) 104 95-109 N [facility] AustinUnxwendFRGBXASAX4276-76-87 10:54:00 Test Item Value Reference Range Interpretation Comments Creatinine Lvl (test code = Creatinine 0.5 0.5-1.4 N Lvl) [facility] AustinWhpeanyCNBZXXMRA6208-97-56 10:54:00 Test Item Value Reference Range Interpretation Comments BUN (test code = BUN) 10 7-22 N [facility] AustinZyfzehwBYERUWAVU1786-05-54 10:54:00 Test Item Value Reference Range Interpretation Comments Potassium Lvl (test code = Potassium 4.1 3.5-5.1 N Lvl) [facility] AustinXwbdfrqSXMTKJXBK4335-19-79 10:54:00 Test Item Value Reference Range Interpretation Comments Sodium Lvl (test code = Sodium Lvl) 141 135-145 N [facility] AustinNppmihrDVUXAELMG8645-87-82 10:54:00 Test Item Value Reference Range Interpretation Comments Glucose Lvl (test code = Glucose Lvl) 83 [facility] AustinVvfzjvtINSUQHUHI1447-75-84 10:54:00 Test Item Value Reference Range Interpretation Comments Calcium Lvl (test code = Calcium Lvl) 8.4 8.5-10.5 L [facility] AustinMfrgeozMQYTZABFX1744-59-09 10:54:00 Test Item Value Reference Range Interpretation Comments AGAP (test code = AGAP) 14.1 10.0-20.0 N [facility]anoDylxydsGPVFUGKSUV7927-34-37 10:54:00 Test Item Value Reference Range Interpretation Comments Hct (test code = Hct) 35.5 36.0-48.0 L [facility]anoJhpwxrlURJDHLSPBO2986-49-78 10:54:00 Test Item Value Reference Range Interpretation Comments WBC (test code = WBC) 4.7 3.7-10.4 N [facility]anoPzujlvqVIBWSRYQCA7591-65-26 10:54:00 Test Item Value Reference Range Interpretation Comments MCV (test code = MCV) 92.6 81.0-99.0 N [facility]anoPunkahhHPUPWQAZIP1291-83-66 10:54:00 Test Item Value Reference Range Interpretation Comments MCH (test code = MCH) 31.4 pg 27.0-31.0 H [facility]anoHuklcxzFEKKYPNCEE3681-34-57 10:54:00 Test Item Value Reference Range Interpretation Comments RBC (test code = RBC) 3.84 4.20-5.40 L [facility]anoSyoksmqAMEAILKKKB5307-13-17 10:54:00 Test Item Value Reference Range Interpretation Comments Hgb (test code = Hgb) 12.1 12.0-16.0 N [facility]anoWoyzgmsEVTVXQJUND5634-53-95 10:54:00 Test Item Value Reference Range Interpretation Comments Platelet (test code = Platelet) 287 133-450 N [facility]anoAjgmwlwBKLSDPZHVV8319-81-39 10:54:00 Test Item Value Reference Range Interpretation Comments RDW (test code = RDW) 12.7 11.5-14.5 N [facility] PlanoZiqhoepQCLSGLYIGC7848-19-41 10:54:00 Test Item Value Reference Range Interpretation Comments MCHC (test code = MCHC) 33.9 32.0-36.0 N [facility]anoYxfbeggUPCTUCGKFB0729-76-40 10:54:00 Test Item Value Reference Range Interpretation Comments MPV (test code = MPV) 7.2 7.4-10.4 L [facility]anoNbopanqQMAOOIEALO8473-13-81 10:54:00 Test Item Value Reference Range Interpretation Comments INR (test code = INR) 0.95 0.85-1.17 N [facility]anoMmlhshyGVJTUEMJFI2427-17-93 10:54:00 Test Item Value Reference Range Interpretation Comments PT (test code = PT) 12.7 s 12.0-14.7 N [facility]anoBefhpoxYHNEKCFAVH6865-70-08 10:54:00 Test Item Value Reference Range Interpretation Comments PTT (test code = PTT) 28.5 s 22.9-35.8 N [facility]anoAshszofCOYXJGKCFM8835-83-81 10:54:00 Test Item Value Reference Range Interpretation Comments Eosinophils # (test code 0.1 See_Comment N [A utomated message] The = Eosinophils #) system whic h generated this result tra nsmitted reference range : <=0.5. The reference r leo was not used to int erpret this result as normal/abnormal . [facility]anoYduqabkQDEFHWHYCQ1015-55-34 10:54:00 Test Item Value Reference Range Interpretation Comments Basophils # (test code 0.0 See_Comment N [Aut omated message] The = Basophils #) system which generated this result tra nsmitted reference range : <=0.2. The reference r leo was not used to int erpret this result as normal/abnormal . [facility]anoQdgwuesPAYIXVRKLJ4378-55-30 10:54:00 Test Item Value Reference Range Interpretation Comments Basophils (test code = 0.4 See_Comment N [Aut omated message] The Basophils) system which ge nerated this result tra nsmitted reference range : <=1.0. The reference r leo was not used to int erpret this result as normal/abnormal . [facility]anoZxsuduhHIXDIDYIVF3076-74-30 10:54:00 Test Item Value Reference Range Interpretation Comments Segs-Bands # (test code = Segs-Bands #) 2.1 1.5-8.1 N [facility]anoHdaecxuKXKQNOPHOU1777-18-81 10:54:00 Test Item Value Reference Range Interpretation Comments Monocytes (test code = Monocytes) 9.0 2.0-12.0 N [facility]anoTxubzeiZBIYRZPLWA2221-11-74 10:54:00 Test Item Value Reference Range Interpretation Comments Eosinophils (test code = 2.4 See_Comment N [A utomated message] The Eosinophils) system which ge nerated this result tra nsmitted reference range : <=4.0. The reference r leo was not used to int erpret this result as normal/abnormal . [facility]anoXsoxefpWZOYDGPXNP4679-27-17 10:54:00 Test Item Value Reference Range Interpretation Comments Monocytes # (test code 0.4 See_Comment N [Aut omated message] The = Monocytes #) system which generated this result tra nsmitted reference range : <=0.8. The reference r leo was not used to int erpret this result as normal/abnormal . [facility]anoWbqmztdBBNLCSILBJ6280-03-09 10:54:00 Test Item Value Reference Range Interpretation Comments Lymphocytes # (test code = Lymphocytes 2.0 1.0-5.5 N #) [facility]anoCeaizkfWHTHXBRFOD5197-80-54 10:54:00 Test Item Value Reference Range Interpretation Comments Lymphocytes (test code = Lymphocytes) 42.8 20.0-40.0 H [facility]anoRmsptveDFFCHIJZMB4069-95-67 10:54:00 Test Item Value Reference Range Interpretation Comments Segs (test code = Segs) 45.4 45.0-75.0 N [facility] AustinPugynltEIUUSQQTS0156-71-96 10:54:00 Test Item Value Reference Range Interpretation Comments CO2 (test code = CO2) 27 24-32 N [facility] AustinUvcutfdDEBRIDUMU0859-36-25 10:54:00 Test Item Value Reference Range Interpretation Comments Chloride Lvl (test code = Chloride Lvl) 104 95-109 N [facility] AustinHbjxplkZHKQCJSHB9560-22-90 10:54:00 Test Item Value Reference Range Interpretation Comments Creatinine Lvl (test code = Creatinine 0.5 0.5-1.4 N Lvl) [facility] AustinCczhmgsDCDFXLAXS8707-40-21 10:54:00 Test Item Value Reference Range Interpretation Comments BUN (test code = BUN) 10 7-22 N [facility] AustinQgufiemJSFVBLDUG3455-11-69 10:54:00 Test Item Value Reference Range Interpretation Comments Potassium Lvl (test code = Potassium 4.1 3.5-5.1 N Lvl) [facility] AustinHrrbriiHZZJBONEK1132-77-53 10:54:00 Test Item Value Reference Range Interpretation Comments Sodium Lvl (test code = Sodium Lvl) 141 135-145 N [facility] AustinFibgtydVUPDXZXHH4097-36-51 10:54:00 Test Item Value Reference Range Interpretation Comments Glucose Lvl (test code = Glucose Lvl) 83 [facility] AustinFbsbsnpAJWCZLWYF1134-64-74 10:54:00 Test Item Value Reference Range Interpretation Comments Calcium Lvl (test code = Calcium Lvl) 8.4 8.5-10.5 L [facility] AustinByuqawkSPSZQSDZS9267-02-35 10:54:00 Test Item Value Reference Range Interpretation Comments AGAP (test code = AGAP) 14.1 10.0-20.0 N [facility]anoRnldmhiKQUGHWYTQQ5575-10-35 10:54:00 Test Item Value Reference Range Interpretation Comments Hct (test code = Hct) 35.5 36.0-48.0 L [facility]anoLjexvdhWQNQBVPNKT2712-25-25 10:54:00 Test Item Value Reference Range Interpretation Comments WBC (test code = WBC) 4.7 3.7-10.4 N [facility]anoCcsvwhuIFWHBKTQVW7393-32-95 10:54:00 Test Item Value Reference Range Interpretation Comments MCV (test code = MCV) 92.6 81.0-99.0 N [facility]anoTcvdqlwWWDLARHWVX8590-16-31 10:54:00 Test Item Value Reference Range Interpretation Comments MCH (test code = MCH) 31.4 pg 27.0-31.0 H [facility]anoJsbevruCOQOCAHUIW9687-57-19 10:54:00 Test Item Value Reference Range Interpretation Comments RBC (test code = RBC) 3.84 4.20-5.40 L [facility]anoOvvkvhyOKIZNXGIWI3329-37-66 10:54:00 Test Item Value Reference Range Interpretation Comments Hgb (test code = Hgb) 12.1 12.0-16.0 N [facility]anoPzmaexnUMWQGKADCZ3694-10-27 10:54:00 Test Item Value Reference Range Interpretation Comments Platelet (test code = Platelet) 287 133-450 N [facility] PlanoZsbagfpOVCOQEPMFQ0589-92-65 10:54:00 Test Item Value Reference Range Interpretation Comments RDW (test code = RDW) 12.7 11.5-14.5 N [facility] PlanoDnelacuEYMKYNXEDQ6589-22-60 10:54:00 Test Item Value Reference Range Interpretation Comments MCHC (test code = MCHC) 33.9 32.0-36.0 N [facility] PlanoQasrtneJPCDHYBNUN5492-38-61 10:54:00 Test Item Value Reference Range Interpretation Comments MPV (test code = MPV) 7.2 7.4-10.4 L [facility]anoSvfuwqeKXLYCIBBQR8378-89-37 10:54:00 Test Item Value Reference Range Interpretation Comments INR (test code = INR) 0.95 0.85-1.17 N [facility] PlanoEtlnvnsLCNUCHQXDV6186-55-06 10:54:00 Test Item Value Reference Range Interpretation Comments PT (test code = PT) 12.7 s 12.0-14.7 N [facility]anoQcbwfkuDJTASOBFAS1691-32-59 10:54:00 Test Item Value Reference Range Interpretation Comments PTT (test code = PTT) 28.5 s 22.9-35.8 N [facility]anoCkrwngrQHUPCJRTUF8193-65-58 10:54:00 Test Item Value Reference Range Interpretation Comments Eosinophils # (test code 0.1 See_Comment N [A utomated message] The = Eosinophils #) system whic h generated this result tra nsmitted reference range : <=0.5. The reference r leo was not used to int erpret this result as normal/abnormal . [facility]anoYkmxahdIFKIZYDTTI0381-23-67 10:54:00 Test Item Value Reference Range Interpretation Comments Basophils # (test code 0.0 See_Comment N [Aut omated message] The = Basophils #) system which generated this result tra nsmitted reference range : <=0.2. The reference r leo was not used to int erpret this result as normal/abnormal . [facility]anoMndzssqUCMSYBKCSG9538-71-79 10:54:00 Test Item Value Reference Range Interpretation Comments Basophils (test code = 0.4 See_Comment N [Aut omated message] The Basophils) system which ge nerated this result tra nsmitted reference range : <=1.0. The reference r leo was not used to int erpret this result as normal/abnormal . [facility]anoCtsadioZCJFCLQKXI7522-74-70 10:54:00 Test Item Value Reference Range Interpretation Comments Segs-Bands # (test code = Segs-Bands #) 2.1 1.5-8.1 N [facility]anoWmkylqkMTQMCZHEYI1381-42-87 10:54:00 Test Item Value Reference Range Interpretation Comments Monocytes (test code = Monocytes) 9.0 2.0-12.0 N [facility]anoWhxskkrQFDESQWGNL0340-48-12 10:54:00 Test Item Value Reference Range Interpretation Comments Eosinophils (test code = 2.4 See_Comment N [A utomated message] The Eosinophils) system which ge nerated this result tra nsmitted reference range : <=4.0. The reference r elo was not used to int erpret this result as normal/abnormal . [facility] PlanoJoqopeaPAGPZSOZVP9144-42-22 10:54:00 Test Item Value Reference Range Interpretation Comments Monocytes # (test code 0.4 See_Comment N [Aut omated message] The = Monocytes #) system which generated this result tra nsmitted reference range : <=0.8. The reference r leo was not used to int erpret this result as normal/abnormal . [facility]anoMpjxyybBNBJUYHKRU3183-00-85 10:54:00 Test Item Value Reference Range Interpretation Comments Lymphocytes # (test code = Lymphocytes 2.0 1.0-5.5 N #) [facility]HnpqiyiBXUEJTSVIH2627-83-01 10:54:00 Test Item Value Reference Range Interpretation Comments Lymphocytes (test code = Lymphocytes) 42.8 20.0-40.0 H [facility]anoXkwfhnoRAWQBEWODO6092-73-40 10:54:00 Test Item Value Reference Range Interpretation Comments Segs (test code = Segs) 45.4 45.0-75.0 N [facility] AustinAqnpmimXGMYOELDB5061-29-18 10:54:00 Test Item Value Reference Range Interpretation Comments CO2 (test code = CO2) 27 24-32 N [facility] AustinJsdfyxxUVIHSLFDX8603-93-66 10:54:00 Test Item Value Reference Range Interpretation Comments Chloride Lvl (test code = Chloride Lvl) 104 95-109 N [facility] AustinFxnbhrgNFLPGNTQU2378-65-16 10:54:00 Test Item Value Reference Range Interpretation Comments Creatinine Lvl (test code = Creatinine 0.5 0.5-1.4 N Lvl) [facility] AustinWwjfampZPHIWNUKE4781-62-75 10:54:00 Test Item Value Reference Range Interpretation Comments BUN (test code = BUN) 10 7-22 N [facility] AustinPsaoqmeCQTYDNBLB9627-72-06 10:54:00 Test Item Value Reference Range Interpretation Comments Potassium Lvl (test code = Potassium 4.1 3.5-5.1 N Lvl) [facility] AustinOhbffxiQXVPKBBBL5751-17-45 10:54:00 Test Item Value Reference Range Interpretation Comments Sodium Lvl (test code = Sodium Lvl) 141 135-145 N [facility] AustinZtlkwqaZGVLONCHX1673-92-63 10:54:00 Test Item Value Reference Range Interpretation Comments Glucose Lvl (test code = Glucose Lvl) 83 [facility] AustinRgprjppYSWFWNTCA3051-19-71 10:54:00 Test Item Value Reference Range Interpretation Comments Calcium Lvl (test code = Calcium Lvl) 8.4 8.5-10.5 L [facility] AustinOsohoklCZUCWEAZO4523-52-07 10:54:00 Test Item Value Reference Range Interpretation Comments AGAP (test code = AGAP) 14.1 10.0-20.0 N [facility]anoYaakgxySPTZCGGKXT7904-63-71 10:54:00 Test Item Value Reference Range Interpretation Comments Hct (test code = Hct) 35.5 36.0-48.0 L [facility]anoYrmqsgoLFMOYSLOGD1616-43-52 10:54:00 Test Item Value Reference Range Interpretation Comments WBC (test code = WBC) 4.7 3.7-10.4 N [facility]anoZwlgwnxYLKLZQFTOW2515-92-05 10:54:00 Test Item Value Reference Range Interpretation Comments MCV (test code = MCV) 92.6 81.0-99.0 N [facility]anoXixormfKFCXTPSJTN5403-91-07 10:54:00 Test Item Value Reference Range Interpretation Comments MCH (test code = MCH) 31.4 pg 27.0-31.0 H [facility]anoVdjjllrYUTEMBYIUB2004-42-49 10:54:00 Test Item Value Reference Range Interpretation Comments RBC (test code = RBC) 3.84 4.20-5.40 L [facility]anoRoabbybWVRLCYAJIH6026-25-83 10:54:00 Test Item Value Reference Range Interpretation Comments Hgb (test code = Hgb) 12.1 12.0-16.0 N [facility]anoSemgrctGSESKYNXUU4360-26-97 10:54:00 Test Item Value Reference Range Interpretation Comments Platelet (test code = Platelet) 287 133-450 N [facility]anoHizlhxdVXZGZROWQJ9949-04-56 10:54:00 Test Item Value Reference Range Interpretation Comments RDW (test code = RDW) 12.7 11.5-14.5 N [facility]anoOzpraqnHMRXHDBNSZ6699-38-24 10:54:00 Test Item Value Reference Range Interpretation Comments MCHC (test code = MCHC) 33.9 32.0-36.0 N [facility]anoJjlrqjzUKIKJVKGIU6350-67-07 10:54:00 Test Item Value Reference Range Interpretation Comments MPV (test code = MPV) 7.2 7.4-10.4 L [facility]anoUnobcsyAQQZPTOLTW7272-04-67 10:54:00 Test Item Value Reference Range Interpretation Comments INR (test code = INR) 0.95 0.85-1.17 N [facility]anoWoazqszOQZCUIJDLL0051-13-25 10:54:00 Test Item Value Reference Range Interpretation Comments PT (test code = PT) 12.7 s 12.0-14.7 N [facility]anoKdzcpujUVNYJNEOQX4856-86-26 10:54:00 Test Item Value Reference Range Interpretation Comments PTT (test code = PTT) 28.5 s 22.9-35.8 N [facility]anoIhlocxmQIPKAFNLLP3021-82-21 10:54:00 Test Item Value Reference Range Interpretation Comments Eosinophils # (test code 0.1 See_Comment N [A utomated message] The = Eosinophils #) system whic h generated this result tra nsmitted reference range : <=0.5. The reference r leo was not used to int erpret this result as normal/abnormal . [facility]anoXbsggkhPOJOOLGPOR6327-95-23 10:54:00 Test Item Value Reference Range Interpretation Comments Basophils # (test code 0.0 See_Comment N [Aut omated message] The = Basophils #) system which generated this result tra nsmitted reference range : <=0.2. The reference r leo was not used to int erpret this result as normal/abnormal . [facility]anoMzbghmcMDXKIEYCJK0785-80-03 10:54:00 Test Item Value Reference Range Interpretation Comments Basophils (test code = 0.4 See_Comment N [Aut omated message] The Basophils) system which ge nerated this result tra nsmitted reference range : <=1.0. The reference r leo was not used to int erpret this result as normal/abnormal . [facility]anoUbyqilePISAIWHIDM2471-26-87 10:54:00 Test Item Value Reference Range Interpretation Comments Segs-Bands # (test code = Segs-Bands #) 2.1 1.5-8.1 N [facility]anoChuprvfLBRLABLUYY5681-45-09 10:54:00 Test Item Value Reference Range Interpretation Comments Monocytes (test code = Monocytes) 9.0 2.0-12.0 N [facility]anoCejkfwoYRXOPMKIKY5108-35-60 10:54:00 Test Item Value Reference Range Interpretation Comments Eosinophils (test code = 2.4 See_Comment N [A utomated message] The Eosinophils) system which ge nerated this result tra nsmitted reference range : <=4.0. The reference r leo was not used to int erpret this result as normal/abnormal . [facility]anoZsybvflONGSGGLSYE7006-31-60 10:54:00 Test Item Value Reference Range Interpretation Comments Monocytes # (test code 0.4 See_Comment N [Aut omated message] The = Monocytes #) system which generated this result tra nsmitted reference range : <=0.8. The reference r leo was not used to int erpret this result as normal/abnormal . [facility]anoDlwyygcEUPAWQMKMV0708-53-27 10:54:00 Test Item Value Reference Range Interpretation Comments Lymphocytes # (test code = Lymphocytes 2.0 1.0-5.5 N #) [facility]anoIgoxfldKQSBBWWEPO1694-89-43 10:54:00 Test Item Value Reference Range Interpretation Comments Lymphocytes (test code = Lymphocytes) 42.8 20.0-40.0 H [facility]anoZfzsouzAHIXGDNHWS9772-26-24 10:54:00 Test Item Value Reference Range Interpretation Comments Segs (test code = Segs) 45.4 45.0-75.0 N [facility] AustinDasbmjuOULSJNAMA0059-49-76 10:02:00 Test Item Value Reference Range Interpretation Comments Chloride Lvl (test code = Chloride Lvl) 105 95-109 N [facility] AustinYxugrvzNSKAQVGGD0574-66-23 10:02:00 Test Item Value Reference Range Interpretation Comments Potassium Lvl (test code = Potassium 4.1 3.5-5.1 N Lvl) [facility] AustinLegphkaCJEBLIDRX6601-09-20 10:02:00 Test Item Value Reference Range Interpretation Comments Sodium Lvl (test code = Sodium Lvl) 143 135-145 N [facility] AustinMrpwyinSSDZHCPUZ9142-34-31 10:02:00 Test Item Value Reference Range Interpretation Comments CO2 (test code = CO2) 29 24-32 N [facility] AustinLwusyhdHBVMQGELH2674-94-76 10:02:00 Test Item Value Reference Range Interpretation Comments Calcium Lvl (test code = Calcium Lvl) 8.7 8.5-10.5 N [facility] AustinPsajzovWLYIZLJDJ3606-66-24 10:02:00 Test Item Value Reference Range Interpretation Comments BUN (test code = BUN) 6 7-22 L [facility] AustinBexzinhDALCAUZAJ6007-00-54 10:02:00 Test Item Value Reference Range Interpretation Comments Creatinine Lvl (test code = Creatinine 0.6 0.5-1.4 N Lvl) [facility] AustinMjmmrfaFOUSSWOMG1791-64-24 10:02:00 Test Item Value Reference Range Interpretation Comments Glucose Lvl (test code = Glucose Lvl) 118 [facility] AustinXowlmpcEMVARXLRP6382-58-44 10:02:00 Test Item Value Reference Range Interpretation Comments AGAP (test code = AGAP) 13.1 10.0-20.0 N [facility]anoNgzurwsMLKRNNBBND0857-89-11 10:02:00 Test Item Value Reference Range Interpretation Comments Basophils # (test code 0.0 See_Comment N [Aut omated message] The = Basophils #) system which generated this result tra nsmitted reference range : <=0.2. The reference r leo was not used to int erpret this result as normal/abnormal . [facility]anoTxuqkmoPAXNQKCJOI9998-06-58 10:02:00 Test Item Value Reference Range Interpretation Comments Monocytes # (test code 0.3 See_Comment N [Aut omated message] The = Monocytes #) system which generated this result tra nsmitted reference range : <=0.8. The reference r leo was not used to int erpret this result as normal/abnormal . [facility]anoAtjdzkoBLYSYCUBLS8846-33-03 10:02:00 Test Item Value Reference Range Interpretation Comments Eosinophils # (test code 0.1 See_Comment N [A utomated message] The = Eosinophils #) system whic h generated this result tra nsmitted reference range : <=0.5. The reference r leo was not used to int erpret this result as normal/abnormal . [facility]anoCklgabmVEEWTKLDRQ6666-86-30 10:02:00 Test Item Value Reference Range Interpretation Comments Segs-Bands # (test code = Segs-Bands #) 2.8 1.5-8.1 N [facility]anoMpdffnvPDXHAKDHFQ2742-54-94 10:02:00 Test Item Value Reference Range Interpretation Comments Lymphocytes # (test code = Lymphocytes 1.7 1.0-5.5 N #) [facility]anoPqqofxqHCAYAVLWJY7199-79-69 10:02:00 Test Item Value Reference Range Interpretation Comments Basophils (test code = 0.6 See_Comment N [Aut omated message] The Basophils) system which ge nerated this result tra nsmitted reference range : <=1.0. The reference r leo was not used to int erpret this result as normal/abnormal . [facility]anoScdobxdRLASKRULIO8822-20-70 10:02:00 Test Item Value Reference Range Interpretation Comments Monocytes (test code = Monocytes) 6.9 2.0-12.0 N [facility]anoJotbjguVTWTAWSXKS6635-29-17 10:02:00 Test Item Value Reference Range Interpretation Comments Eosinophils (test code = 2.0 See_Comment N [A utomated message] The Eosinophils) system which ge nerated this result tra nsmitted reference range : <=4.0. The reference r leo was not used to int erpret this result as normal/abnormal . [facility]anoVzivlojMBOIMCYHRE8647-58-53 10:02:00 Test Item Value Reference Range Interpretation Comments Segs (test code = Segs) 55.8 45.0-75.0 N [facility]anoKxmgmtnQFLKIULNWF8258-17-37 10:02:00 Test Item Value Reference Range Interpretation Comments Lymphocytes (test code = Lymphocytes) 34.7 20.0-40.0 N [facility]anoTgxqnaaTGNSABXALR9408-18-04 10:02:00 Test Item Value Reference Range Interpretation Comments PTT (test code = PTT) 32.2 s 22.9-35.8 N [facility]anoCyqnfnrLSBAKPLLIE0881-63-31 10:02:00 Test Item Value Reference Range Interpretation Comments PT (test code = PT) 13.3 s 12.0-14.7 N [facility]anoOhqabuaCQEKGPIQHR3637-98-70 10:02:00 Test Item Value Reference Range Interpretation Comments INR (test code = INR) 1.01 0.85-1.17 N [facility]anoGuxmuwcNLEZPGORUN8695-77-79 10:02:00 Test Item Value Reference Range Interpretation Comments Hct (test code = Hct) 27.5 36.0-48.0 L [facility]anoZptcpgxGIVOVYDUQK4800-16-76 10:02:00 Test Item Value Reference Range Interpretation Comments RBC (test code = RBC) 3.34 4.20-5.40 L [facility]anoKhyohupQUPPSBSCJX9133-34-91 10:02:00 Test Item Value Reference Range Interpretation Comments Hgb (test code = Hgb) 9.7 12.0-16.0 L [facility]anoCbxrtivKVKAZPICKJ1296-98-63 10:02:00 Test Item Value Reference Range Interpretation Comments WBC (test code = WBC) 5.0 3.7-10.4 N [facility]anoZvhydmqEEPTVUNFHJ0058-75-87 10:02:00 Test Item Value Reference Range Interpretation Comments MPV (test code = MPV) 9.2 7.4-10.4 N [facility]anoFrdoznjGSHCMZUHGI3390-21-12 10:02:00 Test Item Value Reference Range Interpretation Comments Platelet (test code = Platelet) 240 133-450 N [facility]anoQgcbjvjMQMTUBGQTD2646-67-98 10:02:00 Test Item Value Reference Range Interpretation Comments RDW (test code = RDW) 14.3 11.5-14.5 N [facility]anoDtxfljeYSVRKPBPIY4540-83-22 10:02:00 Test Item Value Reference Range Interpretation Comments MCHC (test code = MCHC) 35.2 32.0-36.0 N [facility]anoQpmcfwzPKCFBOLMFA4116-22-32 10:02:00 Test Item Value Reference Range Interpretation Comments MCH (test code = MCH) 28.9 pg 27.0-31.0 N [facility]anoIauyezyTOOVFAHIXN8741-12-50 10:02:00 Test Item Value Reference Range Interpretation Comments MCV (test code = MCV) 82.1 81.0-99.0 N [facility] AustinGmtfehcHNVLNNEAQ8626-41-40 10:02:00 Test Item Value Reference Range Interpretation Comments Chloride Lvl (test code = Chloride Lvl) 105 95-109 N [facility] AustinXjhejfjKTFYSKFQB0497-92-03 10:02:00 Test Item Value Reference Range Interpretation Comments Potassium Lvl (test code = Potassium 4.1 3.5-5.1 N Lvl) [facility] AustinMthloepPOLIZVLUI6422-95-40 10:02:00 Test Item Value Reference Range Interpretation Comments Sodium Lvl (test code = Sodium Lvl) 143 135-145 N [facility] AustinDfhqyrcLVQDAHNXF2152-60-20 10:02:00 Test Item Value Reference Range Interpretation Comments CO2 (test code = CO2) 29 24-32 N [facility] AustinJypxakcHFJCPQUDX6695-01-27 10:02:00 Test Item Value Reference Range Interpretation Comments Calcium Lvl (test code = Calcium Lvl) 8.7 8.5-10.5 N [facility] AustinGcnpnxtYWSCYVIHH4086-50-17 10:02:00 Test Item Value Reference Range Interpretation Comments BUN (test code = BUN) 6 7-22 L [facility] AustinFaohccxMITYZGQXF5481-11-62 10:02:00 Test Item Value Reference Range Interpretation Comments Creatinine Lvl (test code = Creatinine 0.6 0.5-1.4 N Lvl) [facility] AustinQzndilrDICOKTIMX6725-23-40 10:02:00 Test Item Value Reference Range Interpretation Comments Glucose Lvl (test code = Glucose Lvl) 118 [facility] AustinOesnlxxZQYXTJBWL4623-97-69 10:02:00 Test Item Value Reference Range Interpretation Comments AGAP (test code = AGAP) 13.1 10.0-20.0 N [facility]anoCrwvuusPALPVTOQPS9939-65-92 10:02:00 Test Item Value Reference Range Interpretation Comments Basophils # (test code 0.0 See_Comment N [Aut omated message] The = Basophils #) system which generated this result tra nsmitted reference range : <=0.2. The reference r leo was not used to int erpret this result as normal/abnormal . [facility]anoQurifshENYSTCTALA2807-85-43 10:02:00 Test Item Value Reference Range Interpretation Comments Monocytes # (test code 0.3 See_Comment N [Aut omated message] The = Monocytes #) system which generated this result tra nsmitted reference range : <=0.8. The reference r leo was not used to int erpret this result as normal/abnormal . [facility]anoWmjgtbrMOQWJFJKPW2363-74-22 10:02:00 Test Item Value Reference Range Interpretation Comments Eosinophils # (test code 0.1 See_Comment N [A utomated message] The = Eosinophils #) system whic h generated this result tra nsmitted reference range : <=0.5. The reference r leo was not used to int erpret this result as normal/abnormal . [facility]anoPcqnuxjXMIEFWELXX8622-15-87 10:02:00 Test Item Value Reference Range Interpretation Comments Segs-Bands # (test code = Segs-Bands #) 2.8 1.5-8.1 N [facility]anoDpeaomuCCNINNETJU7482-60-12 10:02:00 Test Item Value Reference Range Interpretation Comments Lymphocytes # (test code = Lymphocytes 1.7 1.0-5.5 N #) [facility]anoZfiyznqBUCQTSWVBA7821-93-75 10:02:00 Test Item Value Reference Range Interpretation Comments Basophils (test code = 0.6 See_Comment N [Aut omated message] The Basophils) system which ge nerated this result tra nsmitted reference range : <=1.0. The reference r leo was not used to int erpret this result as normal/abnormal . [facility]anoXvyufguPCQZUUCDDL4298-64-91 10:02:00 Test Item Value Reference Range Interpretation Comments Monocytes (test code = Monocytes) 6.9 2.0-12.0 N [facility]anoColfuzcSXHQIFAOWY4800-46-49 10:02:00 Test Item Value Reference Range Interpretation Comments Eosinophils (test code = 2.0 See_Comment N [A utomated message] The Eosinophils) system which ge nerated this result tra nsmitted reference range : <=4.0. The reference r leo was not used to int erpret this result as normal/abnormal . [facility]anoZiktcwwORDBYHUIGT9328-87-15 10:02:00 Test Item Value Reference Range Interpretation Comments Segs (test code = Segs) 55.8 45.0-75.0 N [facility]anoPqqfyliVBIIIJXSRJ6682-77-51 10:02:00 Test Item Value Reference Range Interpretation Comments Lymphocytes (test code = Lymphocytes) 34.7 20.0-40.0 N [facility]anoIwzbqclEHYXMXUFIO2082-60-42 10:02:00 Test Item Value Reference Range Interpretation Comments PTT (test code = PTT) 32.2 s 22.9-35.8 N [facility]anoYxpmqxnUZLMUJQABM3676-95-95 10:02:00 Test Item Value Reference Range Interpretation Comments PT (test code = PT) 13.3 s 12.0-14.7 N [facility]anoHhjpvqqOVFOODMVIU1978-09-68 10:02:00 Test Item Value Reference Range Interpretation Comments INR (test code = INR) 1.01 0.85-1.17 N [facility]anoXmdskzrNAAGVEYMEI0197-78-21 10:02:00 Test Item Value Reference Range Interpretation Comments Hct (test code = Hct) 27.5 36.0-48.0 L [facility]anoQlaqrgxMVBQRIIFFK2289-83-72 10:02:00 Test Item Value Reference Range Interpretation Comments RBC (test code = RBC) 3.34 4.20-5.40 L [facility]anoUhcdrphDEFTZKCGWH4106-57-61 10:02:00 Test Item Value Reference Range Interpretation Comments Hgb (test code = Hgb) 9.7 12.0-16.0 L [facility]anoVxtdaoqMJZWXXHWEW5346-71-54 10:02:00 Test Item Value Reference Range Interpretation Comments WBC (test code = WBC) 5.0 3.7-10.4 N [facility]anoXmdooeeBOFUXIWQZO3779-69-50 10:02:00 Test Item Value Reference Range Interpretation Comments MPV (test code = MPV) 9.2 7.4-10.4 N [facility]anoKeqvqyrUMPCFTFTVY8910-08-29 10:02:00 Test Item Value Reference Range Interpretation Comments Platelet (test code = Platelet) 240 133-450 N [facility]anoIpzimebLKIJGFCQPG4375-08-52 10:02:00 Test Item Value Reference Range Interpretation Comments RDW (test code = RDW) 14.3 11.5-14.5 N [facility]anoSixrkafCCYQUATNMX2250-36-21 10:02:00 Test Item Value Reference Range Interpretation Comments MCHC (test code = MCHC) 35.2 32.0-36.0 N [facility]anoLynsbkzGGPJMDFLRO3524-14-92 10:02:00 Test Item Value Reference Range Interpretation Comments MCH (test code = MCH) 28.9 pg 27.0-31.0 N [facility]anoQrbqnywXREBXJCJWI3752-99-19 10:02:00 Test Item Value Reference Range Interpretation Comments MCV (test code = MCV) 82.1 81.0-99.0 N [facility] AustinMmpmqyqZTJJKXISL8466-21-42 10:02:00 Test Item Value Reference Range Interpretation Comments Chloride Lvl (test code = Chloride Lvl) 105 95-109 N [facility] AustinIbwbsydOVQWPYMIO0796-90-51 10:02:00 Test Item Value Reference Range Interpretation Comments Potassium Lvl (test code = Potassium 4.1 3.5-5.1 N Lvl) [facility] AustinKhsiowyCSBSDDUEX2860-76-35 10:02:00 Test Item Value Reference Range Interpretation Comments Sodium Lvl (test code = Sodium Lvl) 143 135-145 N [facility] AustinQandpdtKLVBDGTDA0960-99-13 10:02:00 Test Item Value Reference Range Interpretation Comments CO2 (test code = CO2) 29 24-32 N [facility] AustinUrihpvjQRJJQBHLG3028-05-51 10:02:00 Test Item Value Reference Range Interpretation Comments Calcium Lvl (test code = Calcium Lvl) 8.7 8.5-10.5 N [facility] AustinWwxyggoXYIWARUBQ5554-72-72 10:02:00 Test Item Value Reference Range Interpretation Comments BUN (test code = BUN) 6 7-22 L [facility] AustinRpwcohjFHIHNIPVH1802-09-40 10:02:00 Test Item Value Reference Range Interpretation Comments Creatinine Lvl (test code = Creatinine 0.6 0.5-1.4 N Lvl) [facility] AustinGadmbbtXSMELNWEI0486-68-10 10:02:00 Test Item Value Reference Range Interpretation Comments Glucose Lvl (test code = Glucose Lvl) 118 [facility] AustinTmkdzrjMQUDYZVOU3120-76-90 10:02:00 Test Item Value Reference Range Interpretation Comments AGAP (test code = AGAP) 13.1 10.0-20.0 N [facility]anoNbounwkXZTVAVDERB1009-35-19 10:02:00 Test Item Value Reference Range Interpretation Comments Basophils # (test code 0.0 See_Comment N [Aut omated message] The = Basophils #) system which generated this result tra nsmitted reference range : <=0.2. The reference r leo was not used to int erpret this result as normal/abnormal . [facility]anoRuvwuchEJUEIPKFQZ4341-38-04 10:02:00 Test Item Value Reference Range Interpretation Comments Monocytes # (test code 0.3 See_Comment N [Aut omated message] The = Monocytes #) system which generated this result tra nsmitted reference range : <=0.8. The reference r leo was not used to int erpret this result as normal/abnormal . [facility] PlanoFltdxueJEJWILVMAZ6282-70-08 10:02:00 Test Item Value Reference Range Interpretation Comments Eosinophils # (test code 0.1 See_Comment N [A utomated message] The = Eosinophils #) system whic h generated this result tra nsmitted reference range : <=0.5. The reference r leo was not used to int erpret this result as normal/abnormal . [facility]anoJzfynnkZYBKKVLMDO3850-68-69 10:02:00 Test Item Value Reference Range Interpretation Comments Segs-Bands # (test code = Segs-Bands #) 2.8 1.5-8.1 N [facility]anoSdklvbmZZGHOUUKAU7199-00-44 10:02:00 Test Item Value Reference Range Interpretation Comments Lymphocytes # (test code = Lymphocytes 1.7 1.0-5.5 N #) [facility]anoAtpnkpxFWNICXOPFC4792-91-51 10:02:00 Test Item Value Reference Range Interpretation Comments Basophils (test code = 0.6 See_Comment N [Aut omated message] The Basophils) system which ge nerated this result tra nsmitted reference range : <=1.0. The reference r leo was not used to int erpret this result as normal/abnormal . [facility]anoDmzekroUMVFARFYOW4757-15-16 10:02:00 Test Item Value Reference Range Interpretation Comments Monocytes (test code = Monocytes) 6.9 2.0-12.0 N [facility]anoOlqkordOOOJIOPGDI6427-59-12 10:02:00 Test Item Value Reference Range Interpretation Comments Eosinophils (test code = 2.0 See_Comment N [A utomated message] The Eosinophils) system which ge nerated this result tra nsmitted reference range : <=4.0. The reference r leo was not used to int erpret this result as normal/abnormal . [facility]anoGsfajhqIZDLBZMFYJ4646-01-21 10:02:00 Test Item Value Reference Range Interpretation Comments Segs (test code = Segs) 55.8 45.0-75.0 N [facility]anoNdvftamJRPQHVSODI3588-53-95 10:02:00 Test Item Value Reference Range Interpretation Comments Lymphocytes (test code = Lymphocytes) 34.7 20.0-40.0 N [facility]anoKbpuqbdKHHBPXRWAY6345-99-64 10:02:00 Test Item Value Reference Range Interpretation Comments PTT (test code = PTT) 32.2 s 22.9-35.8 N [facility] [place]keprcmEKUKPMJRBC3063-59-24 10:02:00 Test Item Value Reference Range Interpretation Comments PT (test code = PT) 13.3 s 12.0-14.7 N [facility] [place]anoOntztzoGIHZPXHRBY9200-78-61 10:02:00 Test Item Value Reference Range Interpretation Comments INR (test code = INR) 1.01 0.85-1.17 N [facility] [place]anoSupvrxgVNTEIXJKLF1753-66-08 10:02:00 Test Item Value Reference Range Interpretation Comments Hct (test code = Hct) 27.5 36.0-48.0 L [facility] [place]anoKxniqioZRIFJPOGVM4688-69-33 10:02:00 Test Item Value Reference Range Interpretation Comments RBC (test code = RBC) 3.34 4.20-5.40 L [facility] [place]anoLkddbeqEIWPJOBQZE5174-88-67 10:02:00 Test Item Value Reference Range Interpretation Comments Hgb (test code = Hgb) 9.7 12.0-16.0 L [facility] [place]anoVnqolabIFIHXTCAZD6469-02-17 10:02:00 Test Item Value Reference Range Interpretation Comments WBC (test code = WBC) 5.0 3.7-10.4 N [facility] [place]anoTbkqsnbCBLNSZNAPK9797-96-67 10:02:00 Test Item Value Reference Range Interpretation Comments MPV (test code = MPV) 9.2 7.4-10.4 N [facility] [place]anoDjxandgBBERZWVXAJ5470-28-33 10:02:00 Test Item Value Reference Range Interpretation Comments Platelet (test code = Platelet) 240 133-450 N [facility] [place]anoXjlceipIDLOFZKAKY6130-27-83 10:02:00 Test Item Value Reference Range Interpretation Comments RDW (test code = RDW) 14.3 11.5-14.5 N [facility] [place]anoWqbqnzbTPAWBNNCEN3669-53-49 10:02:00 Test Item Value Reference Range Interpretation Comments MCHC (test code = MCHC) 35.2 32.0-36.0 N [facility] [place]anoFtrnfbvUVCOUSBYNK7365-29-24 10:02:00 Test Item Value Reference Range Interpretation Comments MCH (test code = MCH) 28.9 pg 27.0-31.0 N [facility] [place]anoUecquawAUNABLBYIL6158-61-64 10:02:00 Test Item Value Reference Range Interpretation Comments MCV (test code = MCV) 82.1 81.0-99.0 N [facility] AustinMcbbeypJKCKKLTHX3553-35-05 10:02:00 Test Item Value Reference Range Interpretation Comments Chloride Lvl (test code = Chloride Lvl) 105 95-109 N [facility] AustinPckhewnSSRFORFYP3252-52-46 10:02:00 Test Item Value Reference Range Interpretation Comments Potassium Lvl (test code = Potassium 4.1 3.5-5.1 N Lvl) [facility] AustinEjjgfacPEDQTNSQO1731-50-53 10:02:00 Test Item Value Reference Range Interpretation Comments Sodium Lvl (test code = Sodium Lvl) 143 135-145 N [facility] AustinVorrwsdMEUXUACAI7812-58-23 10:02:00 Test Item Value Reference Range Interpretation Comments CO2 (test code = CO2) 29 24-32 N [facility] AustinJqtbwtmBODUKLWZY8873-03-42 10:02:00 Test Item Value Reference Range Interpretation Comments Calcium Lvl (test code = Calcium Lvl) 8.7 8.5-10.5 N [facility] AustinVueakhwHAUMIEEJA1625-70-29 10:02:00 Test Item Value Reference Range Interpretation Comments BUN (test code = BUN) 6 7-22 L [facility] AustinGrngaooABOBUKMWJ7667-64-61 10:02:00 Test Item Value Reference Range Interpretation Comments Creatinine Lvl (test code = Creatinine 0.6 0.5-1.4 N Lvl) [facility] AustinObksgkxEIQQKCGAD6907-51-20 10:02:00 Test Item Value Reference Range Interpretation Comments Glucose Lvl (test code = Glucose Lvl) 118 [facility] AustinTseibnuHHQHOECRD8418-57-93 10:02:00 Test Item Value Reference Range Interpretation Comments AGAP (test code = AGAP) 13.1 10.0-20.0 N [facility] PlanoEytiaowVERANKRXFV3427-96-96 10:02:00 Test Item Value Reference Range Interpretation Comments Basophils # (test code 0.0 See_Comment N [Aut omated message] The = Basophils #) system which generated this result tra nsmitted reference range : <=0.2. The reference r leo was not used to int erpret this result as normal/abnormal . [facility] [place]anoSjhhkvqOUKHMTPLTQ1959-71-27 10:02:00 Test Item Value Reference Range Interpretation Comments Monocytes # (test code 0.3 See_Comment N [Aut omated message] The = Monocytes #) system which generated this result tra nsmitted reference range : <=0.8. The reference r leo was not used to int erpret this result as normal/abnormal . [facility] [place]anoUrjxmmsRIDPOORATV8585-59-85 10:02:00 Test Item Value Reference Range Interpretation Comments Eosinophils # (test code 0.1 See_Comment N [A utomated message] The = Eosinophils #) system whic h generated this result tra nsmitted reference range : <=0.5. The reference r leo was not used to int erpret this result as normal/abnormal . [facility] [place]anoBpgkxqpPGMVFYCCFE3213-32-99 10:02:00 Test Item Value Reference Range Interpretation Comments Segs-Bands # (test code = Segs-Bands #) 2.8 1.5-8.1 N [facility] [place]anoOodfkwpFPBNGNUVFW0305-80-53 10:02:00 Test Item Value Reference Range Interpretation Comments Lymphocytes # (test code = Lymphocytes 1.7 1.0-5.5 N #) [facility] [place]anoNtwvglqPFTROXHEGS0287-14-92 10:02:00 Test Item Value Reference Range Interpretation Comments Basophils (test code = 0.6 See_Comment N [Aut omated message] The Basophils) system which ge nerated this result tra nsmitted reference range : <=1.0. The reference r leo was not used to int erpret this result as normal/abnormal . [facility] [place]anoWledwegCEOJHUGHSE8351-66-42 10:02:00 Test Item Value Reference Range Interpretation Comments Monocytes (test code = Monocytes) 6.9 2.0-12.0 N [facility] [place]anoKnlvnqlCTOTKUJVTL5438-87-44 10:02:00 Test Item Value Reference Range Interpretation Comments Eosinophils (test code = 2.0 See_Comment N [A utomated message] The Eosinophils) system which ge nerated this result tra nsmitted reference range : <=4.0. The reference r leo was not used to int erpret this result as normal/abnormal . [facility] [place]anoUsqbaqpODBNOKFTHR4227-93-97 10:02:00 Test Item Value Reference Range Interpretation Comments Segs (test code = Segs) 55.8 45.0-75.0 N [facility] [place]anoQtoplueRWCHSNFICK6878-68-05 10:02:00 Test Item Value Reference Range Interpretation Comments Lymphocytes (test code = Lymphocytes) 34.7 20.0-40.0 N [facility] [place]anoRoxvgbyXTQEAVILTC3627-40-01 10:02:00 Test Item Value Reference Range Interpretation Comments PTT (test code = PTT) 32.2 s 22.9-35.8 N [facility] [place]anoRcauuujTFDCWXQHMH6526-38-46 10:02:00 Test Item Value Reference Range Interpretation Comments PT (test code = PT) 13.3 s 12.0-14.7 N [facility] [place]anoFvfdjkrEEIVVSJIEG1707-70-50 10:02:00 Test Item Value Reference Range Interpretation Comments INR (test code = INR) 1.01 0.85-1.17 N [place] 368082-03-19 10:02:00 Test Item Value Reference Range Interpretation Comments Hct (test code = Hct) 27.5 36.0-48.0 L [facility] [place]anoQizrfdnZFRJRYEAHC6088-69-81 10:02:00 Test Item Value Reference Range Interpretation Comments RBC (test code = RBC) 3.34 4.20-5.40 L [facility] [place]anoCdoqmtfZTIGQVMFJZ3567-21-38 10:02:00 Test Item Value Reference Range Interpretation Comments Hgb (test code = Hgb) 9.7 12.0-16.0 L [facility] [place]anoWhmaxdzLGBXRDAATW8660-19-72 10:02:00 Test Item Value Reference Range Interpretation Comments WBC (test code = WBC) 5.0 3.7-10.4 N [facility] [place]anoRttdbszWZSNTXTWRR5031-54-74 10:02:00 Test Item Value Reference Range Interpretation Comments MPV (test code = MPV) 9.2 7.4-10.4 N [facility] [place]OjrhwfwBEEDCILPWI2671-02-26 10:02:00 Test Item Value Reference Range Interpretation Comments Platelet (test code = Platelet) 240 133-450 N [facility] [place]anoEzshaylXELTSYQKNK4907-86-91 10:02:00 Test Item Value Reference Range Interpretation Comments RDW (test code = RDW) 14.3 11.5-14.5 N [facility] [place]anoZteblpfPKVXRPNQVZ2923-95-13 10:02:00 Test Item Value Reference Range Interpretation Comments MCHC (test code = MCHC) 35.2 32.0-36.0 N [facility] [place]anoTqkwmomLYCZCTQDUZ0607-06-13 10:02:00 Test Item Value Reference Range Interpretation Comments MCH (test code = MCH) 28.9 pg 27.0-31.0 N [facility] [place]anoDbstrmfFOABYQCIWD3763-52-29 10:02:00 Test Item Value Reference Range Interpretation Comments MCV (test code = MCV) 82.1 81.0-99.0 N [facility] AustinHaaqkpuKMCGFRKLJ8208-03-80 10:02:00 Test Item Value Reference Range Interpretation Comments Chloride Lvl (test code = Chloride Lvl) 105 95-109 N [facility] AustinQrapoieVTLOFXSHQ0333-09-26 10:02:00 Test Item Value Reference Range Interpretation Comments Potassium Lvl (test code = Potassium 4.1 3.5-5.1 N Lvl) [facility] AustinBcdlwjpITSTCISIU7222-74-20 10:02:00 Test Item Value Reference Range Interpretation Comments Sodium Lvl (test code = Sodium Lvl) 143 135-145 N [facility] AustinRlzzdsrYDVIGWHLQ7558-88-31 10:02:00 Test Item Value Reference Range Interpretation Comments CO2 (test code = CO2) 29 24-32 N [facility] AustinSwumnsaCWQATSBVZ7310-70-84 10:02:00 Test Item Value Reference Range Interpretation Comments Calcium Lvl (test code = Calcium Lvl) 8.7 8.5-10.5 N [facility] AustinTrljiivYNZDPCBQX4616-87-46 10:02:00 Test Item Value Reference Range Interpretation Comments BUN (test code = BUN) 6 7-22 L [facility] AustinIpjjuorYFCERFPGN1108-00-21 10:02:00 Test Item Value Reference Range Interpretation Comments Creatinine Lvl (test code = Creatinine 0.6 0.5-1.4 N Lvl) [facility] AustinEvignkeSXCWICBMG3921-28-51 10:02:00 Test Item Value Reference Range Interpretation Comments Glucose Lvl (test code = Glucose Lvl) 118 [facility] AustinCdiqhklQCSEZLEHC7419-34-61 10:02:00 Test Item Value Reference Range Interpretation Comments AGAP (test code = AGAP) 13.1 10.0-20.0 N [facility] [place]anoJavvtnvWRPOCORNMC1773-90-82 10:02:00 Test Item Value Reference Range Interpretation Comments Basophils # (test code 0.0 See_Comment N [Aut omated message] The = Basophils #) system which generated this result tra nsmitted reference range : <=0.2. The reference r leo was not used to int erpret this result as normal/abnormal . [facility] [place]anoTzwdghaQISYXFBZNF1666-92-74 10:02:00 Test Item Value Reference Range Interpretation Comments Monocytes # (test code 0.3 See_Comment N [Aut omated message] The = Monocytes #) system which generated this result tra nsmitted reference range : <=0.8. The reference r leo was not used to int erpret this result as normal/abnormal . [facility] [place]anoPeekyayLKBQZMLDGH9319-89-05 10:02:00 Test Item Value Reference Range Interpretation Comments Eosinophils # (test code 0.1 See_Comment N [A utomated message] The = Eosinophils #) system whic h generated this result tra nsmitted reference range : <=0.5. The reference r leo was not used to int erpret this result as normal/abnormal . [facility] [place]anoOezmbkkTKODMXGCLP6364-43-31 10:02:00 Test Item Value Reference Range Interpretation Comments Segs-Bands # (test code = Segs-Bands #) 2.8 1.5-8.1 N [facility] [place]anoMyjusexJMHZYLAJCL7457-59-10 10:02:00 Test Item Value Reference Range Interpretation Comments Lymphocytes # (test code = Lymphocytes 1.7 1.0-5.5 N #) [facility] [place]anoGfhdfkxOCZRMULCDZ7250-08-11 10:02:00 Test Item Value Reference Range Interpretation Comments Basophils (test code = 0.6 See_Comment N [Aut omated message] The Basophils) system which ge nerated this result tra nsmitted reference range : <=1.0. The reference r leo was not used to int erpret this result as normal/abnormal . [facility] [place]anoJybbexqOHHZDBEPMC0471-57-63 10:02:00 Test Item Value Reference Range Interpretation Comments Monocytes (test code = Monocytes) 6.9 2.0-12.0 N [facility] [place]anoOhrcjasJMHZWEJGPL2831-88-74 10:02:00 Test Item Value Reference Range Interpretation Comments Eosinophils (test code = 2.0 See_Comment N [A utomated message] The Eosinophils) system which ge nerated this result tra nsmitted reference range : <=4.0. The reference r leo was not used to int erpret this result as normal/abnormal . [facility] [place]anoHwkuepuEBTUYDCZDP0623-28-47 10:02:00 Test Item Value Reference Range Interpretation Comments Segs (test code = Segs) 55.8 45.0-75.0 N [facility] [place]anoWaaaxfdLZHCSRNUHV7664-29-52 10:02:00 Test Item Value Reference Range Interpretation Comments Lymphocytes (test code = Lymphocytes) 34.7 20.0-40.0 N [facility] [place]anoSxqrdvyYKLWXCYLOR4457-29-20 10:02:00 Test Item Value Reference Range Interpretation Comments PTT (test code = PTT) 32.2 s 22.9-35.8 N [facility] [place]anoHiijpzyFCVEMDXPKU1179-35-54 10:02:00 Test Item Value Reference Range Interpretation Comments PT (test code = PT) 13.3 s 12.0-14.7 N [facility] [place]anoYmsvwlrHNTQGZDRMI6400-31-44 10:02:00 Test Item Value Reference Range Interpretation Comments INR (test code = INR) 1.01 0.85-1.17 N [facility] [place]anoMzxxmtjYFFRLQPGSW7729-63-18 10:02:00 Test Item Value Reference Range Interpretation Comments Hct (test code = Hct) 27.5 36.0-48.0 L [facility] [place]anoKkycjtzYGSLNKOUUF5665-94-31 10:02:00 Test Item Value Reference Range Interpretation Comments RBC (test code = RBC) 3.34 4.20-5.40 L [facility] PlanoZjusbcqFMEYEQEFSQ4266-52-21 10:02:00 Test Item Value Reference Range Interpretation Comments Hgb (test code = Hgb) 9.7 12.0-16.0 L [facility] [place]anoUpftnepNEMXFESCHD5457-72-07 10:02:00 Test Item Value Reference Range Interpretation Comments WBC (test code = WBC) 5.0 3.7-10.4 N [facility] [place]anoAiewhupQACLLAZXXD6450-86-53 10:02:00 Test Item Value Reference Range Interpretation Comments MPV (test code = MPV) 9.2 7.4-10.4 N [facility] [place]anoKfwfmstOTSXZKQWOM0413-59-63 10:02:00 Test Item Value Reference Range Interpretation Comments Platelet (test code = Platelet) 240 133-450 N [facility] [place]anoWhnzowtFMJRMRHLXK8146-90-79 10:02:00 Test Item Value Reference Range Interpretation Comments RDW (test code = RDW) 14.3 11.5-14.5 N [facility] [place]anoZkpotnlRHBJJULGEG9594-55-31 10:02:00 Test Item Value Reference Range Interpretation Comments MCHC (test code = MCHC) 35.2 32.0-36.0 N [facility] [place]anoIxwjzefMIFWKCEKMD2734-44-06 10:02:00 Test Item Value Reference Range Interpretation Comments MCH (test code = MCH) 28.9 pg 27.0-31.0 N [facility] [place]anoZhlphusSCDOXAQPXG2085-46-88 10:02:00 Test Item Value Reference Range Interpretation Comments MCV (test code = MCV) 82.1 81.0-99.0 N [facility] AustinFqlwzqiWRWNWDBFO7634-57-16 09:24:00 Test Item Value Reference Range Interpretation Comments Magnesium Lvl (test code = Magnesium 2.1 1.8-2.4 N Lvl) [facility] AustinLgaeeeaJGXLTULVV0205-15-61 09:24:00 Test Item Value Reference Range Interpretation Comments Magnesium Lvl (test code = Magnesium 2.1 1.8-2.4 N Lvl) [facility] AustinQcfcbvbWMQNKRFSG4897-77-92 09:24:00 Test Item Value Reference Range Interpretation Comments Magnesium Lvl (test code = Magnesium 2.1 1.8-2.4 N Lvl) [facility] AustinPdkyuqkXICPIGJTX6379-52-88 09:24:00 Test Item Value Reference Range Interpretation Comments Magnesium Lvl (test code = Magnesium 2.1 1.8-2.4 N Lvl) [facility] AustinFeyrglaCAQNXTSTY8958-21-69 09:24:00 Test Item Value Reference Range Interpretation Comments Magnesium Lvl (test code = Magnesium 2.1 1.8-2.4 N Lvl) [facility]oz[facility]vvZkghgcihouvc0526[facility]52-42 00:32:00 Test Item Value Reference Range Interpretation Comments Culture: Aspirate/Body Fluid/Tissue (test code = Culture: Aspirate/Body Fluid/Tissue) [facility] CenterMgjaxbxVnxshcywfvyq6001-63-90 00:32:00 Test Item Value Reference Range Interpretation Comments Culture: Anaerobic (test code = Culture: Anaerobic) [facility] CenterKunuohwEooikhwprqgm8664-70-07 00:32:00 Test Item Value Reference Range Interpretation Comments Culture: Aspirate/Body Fluid/Tissue (test code = Culture: Aspirate/Body Fluid/Tissue) [facility] CenterGwgrarfVisgaoqxtfpn0613-62-69 00:32:00 Test Item Value Reference Range Interpretation Comments Culture: Anaerobic (test code = Culture: Anaerobic) [facility] CenterGiyngcyOksxhvenshdz1147-79-70 00:32:00 Test Item Value Reference Range Interpretation Comments Culture: Aspirate/Body Fluid/Tissue (test code = Culture: Aspirate/Body Fluid/Tissue) [facility] CenterLguwfkhRgealgnvbejy8013-71-86 00:32:00 Test Item Value Reference Range Interpretation Comments Culture: Anaerobic (test code = Culture: Anaerobic) [facility] CenterHutgzggPukgkfdoxgdu8292-66-43 00:32:00 Test Item Value Reference Range Interpretation Comments Culture: Aspirate/Body Fluid/Tissue (test code = Culture: Aspirate/Body Fluid/Tissue) [facility] CenterIkrlidpZlunvoysferh3554-01-90 00:32:00 Test Item Value Reference Range Interpretation Comments Culture: Anaerobic (test code = Culture: Anaerobic) [facility] CenterHhxrtlxCbwgynbjfxca5047-73-88 00:32:00 Test Item Value Reference Range Interpretation Comments Culture: Aspirate/Body Fluid/Tissue (test code = Culture: Aspirate/Body Fluid/Tissue) [facility] CenterPaokmpxPipixlmrfqgo0237-01-89 00:32:00 Test Item Value Reference Range Interpretation Comments Culture: Anaerobic (test code = Culture: Anaerobic) [facility] AustinJmyldjrNUITKWTTV3951-38-51 17:10:00 Test Item Value Reference Range Interpretation Comments Temp Roberth (test code = Temp Roberth) 37.0 [facility] AustinOzcrcprICPVNHGCV6021-86-75 17:10:00 Test Item Value Reference Range Interpretation Comments O2 Sat Roberth (test code = O2 Sat Roberth) 27.0 40.0-70.0 L [facility] AustinYrvpwjhNYMVYBYLI8001-52-42 17:10:00 Test Item Value Reference Range Interpretation Comments pCO2 Roberth (test code = pCO2 Roberth) 47 38-52 N [facility] AustinAmazdrwJBRCTITSL4653-13-91 17:10:00 Test Item Value Reference Range Interpretation Comments pH Roberth (test code = pH Roberth) 7.37 7.28-7.42 N [facility] AustinRwrkyybKCXKWABPR4898-63-12 17:10:00 Test Item Value Reference Range Interpretation Comments BE Roberth (test code = 1 See_Comment N [Automa rohit message] The BE Roberth) system which ge nerated this result transmit rohit reference range : <=2. The reference range was not used to interpr et this result as reji l/abnormal. [facility] AustinLqjqvkgBQWHKMFIZ5258-08-31 17:10:00 Test Item Value Reference Range Interpretation Comments HCO3 Roberth (test code = HCO3 Roberth) 27.2 22.0-26.0 H [facility] AustinJubosiiSXDTOMTZD2381-61-67 17:10:00 Test Item Value Reference Range Interpretation Comments pO2 Roberth (test code = pO2 Roberth) 19 20-49 L [facility] AustinDzsarorAFMXEKNYN1172-72-55 17:10:00 Test Item Value Reference Range Interpretation Comments Temp Roberth (test code = Temp Roberth) 37.0 [facility] AustinRwxrmfjAUGXOUART0273-58-01 17:10:00 Test Item Value Reference Range Interpretation Comments O2 Sat Roberth (test code = O2 Sat Roberth) 27.0 40.0-70.0 L [facility] AustinRqpehljZYUZSWIOG5140-99-15 17:10:00 Test Item Value Reference Range Interpretation Comments pCO2 Roberth (test code = pCO2 Roberth) 47 38-52 N [facility] AustinAnmbhsmJPDJQATTG8502-61-61 17:10:00 Test Item Value Reference Range Interpretation Comments pH Roberth (test code = pH Roberth) 7.37 7.28-7.42 N [facility] AustinNfzhxvdXHYNGQITU2223-47-62 17:10:00 Test Item Value Reference Range Interpretation Comments BE Roberth (test code = 1 See_Comment N [Automa rohit message] The BE Roberth) system which ge nerated this result transmit rohit reference range : <=2. The reference range was not used to interpr et this result as reji l/abnormal. [facility] AustinYmtpyqpKKFFLHFOS7521-60-43 17:10:00 Test Item Value Reference Range Interpretation Comments HCO3 Roberth (test code = HCO3 Roberth) 27.2 22.0-26.0 H [facility] AustinNoepoueOCMBDNGDF8294-47-99 17:10:00 Test Item Value Reference Range Interpretation Comments pO2 Roberth (test code = pO2 Roberth) 19 20-49 L [facility] AustinSuvplfqMQMQEVMDN6260-34-24 17:10:00 Test Item Value Reference Range Interpretation Comments Temp Roberth (test code = Temp Roberth) 37.0 [facility] AustinCrmpocqQRWBFIBJM8055-76-67 17:10:00 Test Item Value Reference Range Interpretation Comments O2 Sat Roberth (test code = O2 Sat Roberth) 27.0 40.0-70.0 L [facility] AustinHufazzvTXHUBUEIP5294-95-77 17:10:00 Test Item Value Reference Range Interpretation Comments pCO2 Roberth (test code = pCO2 Roberth) 47 38-52 N [facility] AustinDqdzbinQUNECFDBC4304-00-38 17:10:00 Test Item Value Reference Range Interpretation Comments pH Roberth (test code = pH Roberth) 7.37 7.28-7.42 N [facility] AustinAnudlmgZQRGHRXBB5363-35-95 17:10:00 Test Item Value Reference Range Interpretation Comments BE Roberth (test code = 1 See_Comment N [Automa rohit message] The BE Roberth) system which ge nerated this result transmit rohit reference range : <=2. The reference range was not used to interpr et this result as reji l/abnormal. [facility] AustinOjxaqnpHCXRUSRBQ4125-10-86 17:10:00 Test Item Value Reference Range Interpretation Comments HCO3 Roberth (test code = HCO3 Roberth) 27.2 22.0-26.0 H [facility] AustinIetehhgHDITIBZAJ0677-19-85 17:10:00 Test Item Value Reference Range Interpretation Comments pO2 Roberth (test code = pO2 Roberth) 19 20-49 L [facility] AustinQuioostTLOWSGHHA6521-38-76 17:10:00 Test Item Value Reference Range Interpretation Comments Temp Roberth (test code = Temp Roberth) 37.0 [facility] AustinTxtsccmGJDLHYEMP6162-89-62 17:10:00 Test Item Value Reference Range Interpretation Comments O2 Sat Roberth (test code = O2 Sat Roberth) 27.0 40.0-70.0 L [facility] AustinIfhgsouJDQALSCTS4824-39-95 17:10:00 Test Item Value Reference Range Interpretation Comments pCO2 Roberth (test code = pCO2 Roberth) 47 38-52 N [facility] AustinLoslkplGVZSGALEP1099-93-00 17:10:00 Test Item Value Reference Range Interpretation Comments pH Roberth (test code = pH Roberth) 7.37 7.28-7.42 N [facility] AustinJxcqxqqXAKKUCOVO0949-25-20 17:10:00 Test Item Value Reference Range Interpretation Comments BE Roberth (test code = 1 See_Comment N [Automa rohit message] The BE Roberth) system which ge nerated this result transmit rohit reference range : <=2. The reference range was not used to interpr et this result as reji l/abnormal. [facility] AustinRzumhykTZCVJICRZ0328-91-15 17:10:00 Test Item Value Reference Range Interpretation Comments HCO3 Roberth (test code = HCO3 Roberth) 27.2 22.0-26.0 H [facility] AustinTyzxqvfCNDVKHMMY5223-04-09 17:10:00 Test Item Value Reference Range Interpretation Comments pO2 Roberth (test code = pO2 Roberth) 19 20-49 L [facility] AustinRqrlllkRNTIAPMEK2154-65-47 17:10:00 Test Item Value Reference Range Interpretation Comments Temp Roberth (test code = Temp Roberth) 37.0 [facility] AustinFyepkspOWXKISLZT0617-12-90 17:10:00 Test Item Value Reference Range Interpretation Comments O2 Sat Roberth (test code = O2 Sat Roberth) 27.0 40.0-70.0 L [facility] AustinYehnjvcNPBTHXCQR2648-67-22 17:10:00 Test Item Value Reference Range Interpretation Comments pCO2 Roberth (test code = pCO2 Roberth) 47 38-52 N [facility] AustinZjgkvpoCATBMEAEV8083-62-59 17:10:00 Test Item Value Reference Range Interpretation Comments pH Roberth (test code = pH Roberth) 7.37 7.28-7.42 N [facility] AustinUojuofnVTHLNKVSV4820-08-43 17:10:00 Test Item Value Reference Range Interpretation Comments BE Roberth (test code = 1 See_Comment N [Automa rohit message] The BE Roberth) system which ge nerated this result transmit rohit reference range : <=2. The reference range was not used to interpr et this result as reji l/abnormal. [facility] AustinRkcsphpTNBJKODTA6509-38-86 17:10:00 Test Item Value Reference Range Interpretation Comments HCO3 Roberth (test code = HCO3 Roberth) 27.2 22.0-26.0 H [facility] AustinRkbvytxCPHQRSKFX1794-72-00 17:10:00 Test Item Value Reference Range Interpretation Comments pO2 Roberth (test code = pO2 Roberth) 19 20-49 L [facility]MgkcfahXtzrzvjfawvp8150-70-80 14:18:00 Test Item Value Reference Range Interpretation Comments Culture: Blood (test code = Culture: Blood) [facility] CenterUielmsmCrfonnqwhniq4508-52-33 14:18:00 Test Item Value Reference Range Interpretation Comments Culture: Wound/Abscess w/Gram Stain (test code = Culture: Wound/Abscess w/Gram Stain) [facility] CenterFrpyegdJjymhcuslicr8417-48-52 14:18:00 Test Item Value Reference Range Interpretation Comments Culture: Blood (test code = Culture: Blood) [facility] CenterUplrvphApdyibetcojq3702-06-10 14:18:00 Test Item Value Reference Range Interpretation Comments Culture: Wound/Abscess w/Gram Stain (test code = Culture: Wound/Abscess w/Gram Stain) [facility] CenterMxxmtawLtodcqjxigyd5920-57-02 14:18:00 Test Item Value Reference Range Interpretation Comments Culture: Blood (test code = Culture: Blood) [facility] CenterGyuxofuDfpksaxmkzcw1131-21-81 14:18:00 Test Item Value Reference Range Interpretation Comments Culture: Wound/Abscess w/Gram Stain (test code = Culture: Wound/Abscess w/Gram Stain) [facility] CenterLwdqhhhQwphfpxgbjcq7457-42-56 14:18:00 Test Item Value Reference Range Interpretation Comments Culture: Blood (test code = Culture: Blood) [facility] CenterAsqyjlzAwedeuoeaiet0031-88-75 14:18:00 Test Item Value Reference Range Interpretation Comments Culture: Wound/Abscess w/Gram Stain (test code = Culture: Wound/Abscess w/Gram Stain) [facility] CenterWxipuipGxnwqxqyqohp3381-61-87 14:18:00 Test Item Value Reference Range Interpretation Comments Culture: Blood (test code = Culture: Blood) [facility] CenterKedffxiAzhlrsxlcrma1632-63-99 14:18:00 Test Item Value Reference Range Interpretation Comments Culture: Wound/Abscess w/Gram Stain (test code = Culture: Wound/Abscess w/Gram Stain) [facility] AustinVtiescoYVESLHAKK1558-06-73 13:09:00 Test Item Value Reference Range Interpretation Comments Lactic Acid Lvl (test code = Lactic 1.0 0.5-2.2 N Acid Lvl) [facility] AustinZfnxspqDGHUGIFUS7740-83-41 13:09:00 Test Item Value Reference Range Interpretation Comments Lactic Acid Lvl (test code = Lactic 1.0 0.5-2.2 N Acid Lvl) [facility] AustinFypfavgUBPNZNXDB9862-81-38 13:09:00 Test Item Value Reference Range Interpretation Comments Lactic Acid Lvl (test code = Lactic 1.0 0.5-2.2 N Acid Lvl) [facility] AustinHqwcrofMWCXZEUSZ5455-96-41 13:09:00 Test Item Value Reference Range Interpretation Comments Lactic Acid Lvl (test code = Lactic 1.0 0.5-2.2 N Acid Lvl) [facility] AustinEmuztpmSFJGHHIWW3122-07-82 13:09:00 Test Item Value Reference Range Interpretation Comments Lactic Acid Lvl (test code = Lactic 1.0 0.5-2.2 N Acid Lvl) [facility] AustinPglmuehEOKFRLGVZ4437-86-11 12:20:00 Test Item Value Reference Range Interpretation Comments U Preg (test code = U Negative (09/01/2011 N Preg) 07:20:00) [facility] TylerJajkvqjZKQOVFCPTV3394-75-88 12:20:00 Test Item Value Reference Range Interpretation Comments UA Sq Epi (test code Occasional /LPF N = UA Sq Epi) (09/01/2011 07:20:00) [facility] TylerLyaaxovGKGKDRGPGQ5660-86-44 12:20:00 Test Item Value Reference Range Interpretation Comments UA Leuk Est (test Negative (09/01/2011 N code = UA Leuk Est) 07:20:00) [facility] TylerCrslxvpRLFJAGNEIH5893-75-56 12:20:00 Test Item Value Reference Range Interpretation Comments UA Nitrite (test code Negative (09/01/2011 N = UA Nitrite) 07:20:00) [facility] CenterFneimgeOUMPVGIWPH6135-77-77 12:20:00 Test Item Value Reference Range Interpretation Comments UA Urobilinogen (test code = UA 0.2 0.1-1.0 N Urobilinogen) [facility] TylerYiyxfbhATOQXTMQIK4515-39-90 12:20:00 Test Item Value Reference Range Interpretation Comments UA Blood (test code = Negative (09/01/2011 N UA Blood) 07:20:00) [facility] CenterVzrrxicXUAXMEMCHS4423-23-96 12:20:00 Test Item Value Reference Range Interpretation Comments UA Ketones (test code = >=80 mg/dL A UA Ketones) *ABN*(09/01/2011 07:20:00) [facility] TylerQbxytwxZBTLSWNBWJ1728-83-41 12:20:00 Test Item Value Reference Range Interpretation Comments UA Protein (test code Negative (09/01/2011 N = UA Protein) 07:20:00) [facility] TylerMfckrplBJZOLMKXOQ5093-47-09 12:20:00 Test Item Value Reference Range Interpretation Comments UA pH (test code = UA pH) 6.0 1 5.0-8.0 N [facility] CenterAgghjjgAXAKKOHIVR8637-27-17 12:20:00 Test Item Value Reference Range Interpretation Comments UA Bili (test code = Negative (09/01/2011 N UA Bili) 07:20:00) [facility] TylerNtqwueuHYSPHLTREO8934-29-31 12:20:00 Test Item Value Reference Range Interpretation Comments UA Glucose (test code = >=1000 mg/dL A UA Glucose) *ABN*(09/01/2011 07:20:00) [facility] CenterXmnifkxZMMDEKKJHP0524-67-93 12:20:00 Test Item Value Reference Range Interpretation Comments UA Spec Grav (test code = UA Spec 1.035 1 H Grav) [facility] CenterKnonixvTXEJPJKYVB5121-08-58 12:20:00 Test Item Value Reference Range Interpretation Comments UA Turbidity (test code = Clear (09/01/2011 N UA Turbidity) 07:20:00) [facility] TylerVzzdrdjGDXJIFTILK4938-10-98 12:20:00 Test Item Value Reference Range Interpretation Comments UA Color (test code = Yellow *NA*(09/01/2011 UA Color) 07:20:00) [facility] CenterCfhyoozRRBFJFABW3926-98-31 12:20:00 Test Item Value Reference Range Interpretation Comments U Preg (test code = U Negative (09/01/2011 N Preg) 07:20:00) [facility] CenterAigwzxdJEFKEPQXBS1608-22-41 12:20:00 Test Item Value Reference Range Interpretation Comments UA Sq Epi (test code Occasional /LPF N = UA Sq Epi) (09/01/2011 07:20:00) [facility]icsIpuggklBBTPNVZNFA9097-07-76 12:20:00 Test Item Value Reference Range Interpretation Comments UA Leuk Est (test Negative (09/01/2011 N code = UA Leuk Est) 07:20:00) [facility]icsQuejaztHCPUNCSUTQ9091-54-49 12:20:00 Test Item Value Reference Range Interpretation Comments UA Nitrite (test code Negative (09/01/2011 N = UA Nitrite) 07:20:00) [facility] CenterLtjdlqaNIFMVASNVK7954-01-65 12:20:00 Test Item Value Reference Range Interpretation Comments UA Urobilinogen (test code = UA 0.2 0.1-1.0 N Urobilinogen) [facility] CenterZweefyzRHGVMZLUNK9100-88-51 12:20:00 Test Item Value Reference Range Interpretation Comments UA Blood (test code = Negative (09/01/2011 N UA Blood) 07:20:00) [facility] CenterVynfezhNTNXUWGMBH9846-54-94 12:20:00 Test Item Value Reference Range Interpretation Comments UA Ketones (test code = >=80 mg/dL A UA Ketones) *ABN*(09/01/2011 07:20:00) [facility]icsIdnoqycINBZZRAWWL4049-28-80 12:20:00 Test Item Value Reference Range Interpretation Comments UA Protein (test code Negative (09/01/2011 N = UA Protein) 07:20:00) [facility] CenterKpbjgtsEFLGNDCYDN8977-02-75 12:20:00 Test Item Value Reference Range Interpretation Comments UA pH (test code = UA pH) 6.0 1 5.0-8.0 N [facility]icsMwqbxjfYJGZLBSSYN4027-44-32 12:20:00 Test Item Value Reference Range Interpretation Comments UA Bili (test code = Negative (09/01/2011 N UA Bili) 07:20:00) [facility]icsDaxjwfpCXEZDWXYCS9680-44-09 12:20:00 Test Item Value Reference Range Interpretation Comments UA Glucose (test code = >=1000 mg/dL A UA Glucose) *ABN*(09/01/2011 07:20:00) [facility] CenterEnxubrdXGOTSWMCKI7041-90-52 12:20:00 Test Item Value Reference Range Interpretation Comments UA Spec Grav (test code = UA Spec 1.035 1 H Grav) [facility]icsZgcswooQBHZRAWSHN4245-58-62 12:20:00 Test Item Value Reference Range Interpretation Comments UA Turbidity (test code = Clear (09/01/2011 N UA Turbidity) 07:20:00) [facility]icsBxskfuoIILMGBAFMP3924-40-07 12:20:00 Test Item Value Reference Range Interpretation Comments UA Color (test code = Yellow *NA*(09/01/2011 UA Color) 07:20:00) [facility] CenterHvhwittSWKCLGWYL5687-85-74 12:20:00 Test Item Value Reference Range Interpretation Comments U Preg (test code = U Negative (09/01/2011 N Preg) 07:20:00) [facility]icsAvzftblEUSGCKHLIO3253-20-68 12:20:00 Test Item Value Reference Range Interpretation Comments UA Sq Epi (test code Occasional /LPF N = UA Sq Epi) (09/01/2011 07:20:00) [facility]icsAymzopnLAJPRYMLEA8579-00-57 12:20:00 Test Item Value Reference Range Interpretation Comments UA Leuk Est (test Negative (09/01/2011 N code = UA Leuk Est) 07:20:00) [facility]icsNugworbWZXYBMBJKB1301-98-47 12:20:00 Test Item Value Reference Range Interpretation Comments UA Nitrite (test code Negative (09/01/2011 N = UA Nitrite) 07:20:00) [facility]icsAetirvkTHQAVUHVEL8446-88-83 12:20:00 Test Item Value Reference Range Interpretation Comments UA Urobilinogen (test code = UA 0.2 0.1-1.0 N Urobilinogen) [facility]icsZkdnuluRAPHWPHSSY0730-45-68 12:20:00 Test Item Value Reference Range Interpretation Comments UA Blood (test code = Negative (09/01/2011 N UA Blood) 07:20:00) [facility]icsNnjxbtwGYCJZBQAIY3119-94-46 12:20:00 Test Item Value Reference Range Interpretation Comments UA Ketones (test code = >=80 mg/dL A UA Ketones) *ABN*(09/01/2011 07:20:00) [facility] CenterTxoiqnlYWTZCKMTEN0508-46-40 12:20:00 Test Item Value Reference Range Interpretation Comments UA Protein (test code Negative (09/01/2011 N = UA Protein) 07:20:00) [facility] CenterRrzjmjsKGSDFCTVPR0643-24-46 12:20:00 Test Item Value Reference Range Interpretation Comments UA pH (test code = UA pH) 6.0 1 5.0-8.0 N [facility] CenterYlyfbflUJDTTFKBBR7228-98-43 12:20:00 Test Item Value Reference Range Interpretation Comments UA Bili (test code = Negative (09/01/2011 N UA Bili) 07:20:00) [facility] CenterGzbfyqlMOUGTVDGHY5194-17-04 12:20:00 Test Item Value Reference Range Interpretation Comments UA Glucose (test code = >=1000 mg/dL A UA Glucose) *ABN*(09/01/2011 07:20:00) [facility] CenterAinoxolREXAVBPEWW3769-94-94 12:20:00 Test Item Value Reference Range Interpretation Comments UA Spec Grav (test code = UA Spec 1.035 1 H Grav) [facility] CenterNrpbimtFZAEXKBYJZ1246-07-07 12:20:00 Test Item Value Reference Range Interpretation Comments UA Turbidity (test code = Clear (09/01/2011 N UA Turbidity) 07:20:00) [facility] CenterHbhslkdAHVBOZTJOD8772-50-23 12:20:00 Test Item Value Reference Range Interpretation Comments UA Color (test code = Yellow *NA*(09/01/2011 UA Color) 07:20:00) [facility] CenterRkjuxsoJUIOJMVMY2555-67-67 12:20:00 Test Item Value Reference Range Interpretation Comments U Preg (test code = U Negative (09/01/2011 N Preg) 07:20:00) [facility] CenterLbtrbccIQGZRKJTPN6840-75-69 12:20:00 Test Item Value Reference Range Interpretation Comments UA Sq Epi (test code Occasional /LPF N = UA Sq Epi) (09/01/2011 07:20:00) [facility] CenterAtomgzaKWLAUTRKYC2943-08-03 12:20:00 Test Item Value Reference Range Interpretation Comments UA Leuk Est (test Negative (09/01/2011 N code = UA Leuk Est) 07:20:00) [facility] CenterZxyeluvQJPQYWKDJK7135-76-10 12:20:00 Test Item Value Reference Range Interpretation Comments UA Nitrite (test code Negative (09/01/2011 N = UA Nitrite) 07:20:00) [facility] CenterTmtppveAHJDOYXVFH6920-36-30 12:20:00 Test Item Value Reference Range Interpretation Comments UA Urobilinogen (test code = UA 0.2 0.1-1.0 N Urobilinogen) [facility] CenterFkrzynyGJHVWFXJSC2537-40-83 12:20:00 Test Item Value Reference Range Interpretation Comments UA Blood (test code = Negative (09/01/2011 N UA Blood) 07:20:00) [facility] CenterYlywpfqZUAKFNQTPK5444-35-39 12:20:00 Test Item Value Reference Range Interpretation Comments UA Ketones (test code = >=80 mg/dL A UA Ketones) *ABN*(09/01/2011 07:20:00) [facility] TylerNqwyvyjBCOOWIZFIA1926-24-63 12:20:00 Test Item Value Reference Range Interpretation Comments UA Protein (test code Negative (09/01/2011 N = UA Protein) 07:20:00) [facility] TylerMxfjvayVJMQFYDSKO3157-02-47 12:20:00 Test Item Value Reference Range Interpretation Comments UA pH (test code = UA pH) 6.0 1 5.0-8.0 N [facility] CenterQqfykdoVQNBCDLDUK9801-69-07 12:20:00 Test Item Value Reference Range Interpretation Comments UA Bili (test code = Negative (09/01/2011 N UA Bili) 07:20:00) [facility] CenterQqfxwqiZQYKVVLEVA0697-66-03 12:20:00 Test Item Value Reference Range Interpretation Comments UA Glucose (test code = >=1000 mg/dL A UA Glucose) *ABN*(09/01/2011 07:20:00) [facility] CenterAojtsmwLXVGDRYRRN9195-69-92 12:20:00 Test Item Value Reference Range Interpretation Comments UA Spec Grav (test code = UA Spec 1.035 1 H Grav) [facility] CenterHlrxjbaZSAIZZPKPV3724-88-74 12:20:00 Test Item Value Reference Range Interpretation Comments UA Turbidity (test code = Clear (09/01/2011 N UA Turbidity) 07:20:00) [facility] CenterPcvcpncZKQYWILPBO0318-30-58 12:20:00 Test Item Value Reference Range Interpretation Comments UA Color (test code = Yellow *NA*(09/01/2011 UA Color) 07:20:00) [facility] CenterOtmcqqqHFPUHMXYD5413-32-02 12:20:00 Test Item Value Reference Range Interpretation Comments U Preg (test code = U Negative (09/01/2011 N Preg) 07:20:00) [facility] CenterVpwfndfCCHNOVQIKB2160-98-35 12:20:00 Test Item Value Reference Range Interpretation Comments UA Sq Epi (test code Occasional /LPF N = UA Sq Epi) (09/01/2011 07:20:00) [facility] CenterMjeysnpLKRKMAJCEZ4732-50-69 12:20:00 Test Item Value Reference Range Interpretation Comments UA Leuk Est (test Negative (09/01/2011 N code = UA Leuk Est) 07:20:00) [facility] CenterSwihwqxTRFIXBKKQC2015-25-08 12:20:00 Test Item Value Reference Range Interpretation Comments UA Nitrite (test code Negative (09/01/2011 N = UA Nitrite) 07:20:00) [facility] CenterNuuarbdXGMHDYBYHL2678-95-08 12:20:00 Test Item Value Reference Range Interpretation Comments UA Urobilinogen (test code = UA 0.2 0.1-1.0 N Urobilinogen) [facility] CenterWcxztabRSOFUTYLCR5454-15-16 12:20:00 Test Item Value Reference Range Interpretation Comments UA Blood (test code = Negative (09/01/2011 N UA Blood) 07:20:00) [facility] CenterRkgwtcaULLKYXRQZJ3218-65-26 12:20:00 Test Item Value Reference Range Interpretation Comments UA Ketones (test code = >=80 mg/dL A UA Ketones) *ABN*(09/01/2011 07:20:00) [facility] CenterUibrnayUDSJCSZMZP4862-54-64 12:20:00 Test Item Value Reference Range Interpretation Comments UA Protein (test code Negative (09/01/2011 N = UA Protein) 07:20:00) [facility] CenterNndjlscRSRQAEUTWZ2089-33-14 12:20:00 Test Item Value Reference Range Interpretation Comments UA pH (test code = UA pH) 6.0 1 5.0-8.0 N [facility] CenterJppljlvAAUGHEFCER4208-52-52 12:20:00 Test Item Value Reference Range Interpretation Comments UA Bili (test code = Negative (09/01/2011 N UA Bili) 07:20:00) [facility] CenterLpxeqnhBVSKVQAUHQ6021-10-79 12:20:00 Test Item Value Reference Range Interpretation Comments UA Glucose (test code = >=1000 mg/dL A UA Glucose) *ABN*(09/01/2011 07:20:00) [facility] TylerNqayubiWIYMOPWIYB8422-48-91 12:20:00 Test Item Value Reference Range Interpretation Comments UA Spec Grav (test code = UA Spec 1.035 1 H Grav) [facility] TylerZnqniyxEWEKAPXZKS8665-04-49 12:20:00 Test Item Value Reference Range Interpretation Comments UA Turbidity (test code = Clear (09/01/2011 N UA Turbidity) 07:20:00) [facility] TylerZqbdrlfKKYNCOHRFH2513-98-11 12:20:00 Test Item Value Reference Range Interpretation Comments UA Color (test code = Yellow *NA*(09/01/2011 UA Color) 07:20:00) [facility] AustinMedjjlmRPZAOVCOH4034-67-09 08:00:00 Test Item Value Reference Range Interpretation Comments Lactic Acid Lvl (test code = Lactic 2.8 0.5-2.2 H Acid Lvl) [facility] AustinDifkrvbMLOWYIXVW3519-91-42 08:00:00 Test Item Value Reference Range Interpretation Comments Lactic Acid Lvl (test code = Lactic 2.8 0.5-2.2 H Acid Lvl) [facility] AustinUxepjwxCNUQNQLZI8455-44-30 08:00:00 Test Item Value Reference Range Interpretation Comments Lactic Acid Lvl (test code = Lactic 2.8 0.5-2.2 H Acid Lvl) [facility] AustinTnlxfnxXSBOVKZIB7420-37-91 08:00:00 Test Item Value Reference Range Interpretation Comments Lactic Acid Lvl (test code = Lactic 2.8 0.5-2.2 H Acid Lvl) [facility] AustinZqltohsTPOKWOVJF9950-08-07 08:00:00 Test Item Value Reference Range Interpretation Comments Lactic Acid Lvl (test code = Lactic 2.8 0.5-2.2 H Acid Lvl) [facility] AustinWfzdaykFYJLVKVSG9841-05-17 07:47:00 Test Item Value Reference Range Interpretation Comments Magnesium Lvl (test code = Magnesium 1.5 1.8-2.4 L Lvl) [facility]FemagzxMHXBVTDEMF3400-92-40 07:47:00 Test Item Value Reference Range Interpretation Comments Polychrom (test code = Slight (09/01/2011 N Polychrom) 02:47:00) [facility]anoWzgosymKUIJNJGNUA8161-69-08 07:47:00 Test Item Value Reference Range Interpretation Comments Anisocyte (test code = 1+ *ABN*(09/01/2011 A Anisocyte) 02:47:00) [facility]anoXhmtfkhZNUAJMAUNP0602-85-48 07:47:00 Test Item Value Reference Range Interpretation Comments Large Plt (test code = Slight *ABN*(09/01/2011 A Large Plt) 02:47:00) [facility]anoNfktpvxWOGMXVWHGS0326-04-85 07:47:00 Test Item Value Reference Range Interpretation Comments Tear Cell (test code = Tear Cell) [facility] PlanoZacchgaSBIJWMGWGM9384-10-83 07:47:00 Test Item Value Reference Range Interpretation Comments Elliptocyte (test code = Slight A Elliptocyte) *ABN*(09/01/2011 02:47:00) [facility] AustinJxwkrbcAJPXZPNSJ1640-27-79 07:47:00 Test Item Value Reference Range Interpretation Comments Magnesium Lvl (test code = Magnesium 1.5 1.8-2.4 L Lvl) [facility]anoZikepbtZZDELVJULM6975-47-45 07:47:00 Test Item Value Reference Range Interpretation Comments Polychrom (test code = Slight (09/01/2011 N Polychrom) 02:47:00) [facility]anoNlooishXWLJHRSYTW5741-57-27 07:47:00 Test Item Value Reference Range Interpretation Comments Anisocyte (test code = 1+ *ABN*(09/01/2011 A Anisocyte) 02:47:00) [facility]anoPwcwsabBSCKYWHNRQ0442-10-05 07:47:00 Test Item Value Reference Range Interpretation Comments Large Plt (test code = Slight *ABN*(09/01/2011 A Large Plt) 02:47:00) [facility]anoRghlrsrERQKYITOVR4274-18-47 07:47:00 Test Item Value Reference Range Interpretation Comments Tear Cell (test code = Tear Cell) [facility]anoDgnshsoCQAHPFDKAZ1150-56-37 07:47:00 Test Item Value Reference Range Interpretation Comments Elliptocyte (test code = Slight A Elliptocyte) *ABN*(09/01/2011 02:47:00) [facility] AustinKdckejhNRDIIIOTU4832-07-27 07:47:00 Test Item Value Reference Range Interpretation Comments Magnesium Lvl (test code = Magnesium 1.5 1.8-2.4 L Lvl) [facility]anoDtrcteiJTJNHGOQMV4151-93-11 07:47:00 Test Item Value Reference Range Interpretation Comments Polychrom (test code = Slight (09/01/2011 N Polychrom) 02:47:00) [facility]anoFcdnxadZRRLPMLDEE6675-57-94 07:47:00 Test Item Value Reference Range Interpretation Comments Anisocyte (test code = 1+ *ABN*(09/01/2011 A Anisocyte) 02:47:00) [facility]anoUjainwfLNORHFWFBX8488-35-07 07:47:00 Test Item Value Reference Range Interpretation Comments Large Plt (test code = Slight *ABN*(09/01/2011 A Large Plt) 02:47:00) [facility]anoTlznlgqMNZYZKMNXW5422-87-26 07:47:00 Test Item Value Reference Range Interpretation Comments Tear Cell (test code = Tear Cell) [facility] PlanoRauwsgdOZEZTIHCXC2453-84-64 07:47:00 Test Item Value Reference Range Interpretation Comments Elliptocyte (test code = Slight A Elliptocyte) *ABN*(09/01/2011 02:47:00) [facility] AustinEnpeskuGVIGQREQH1814-52-11 07:47:00 Test Item Value Reference Range Interpretation Comments Magnesium Lvl (test code = Magnesium 1.5 1.8-2.4 L Lvl) [facility]anoYtcmdkgGVIZZKXZTD6574-09-20 07:47:00 Test Item Value Reference Range Interpretation Comments Polychrom (test code = Slight (09/01/2011 N Polychrom) 02:47:00) [facility]anoJsvfzcxZHWSYABFKF3724-09-90 07:47:00 Test Item Value Reference Range Interpretation Comments Anisocyte (test code = 1+ *ABN*(09/01/2011 A Anisocyte) 02:47:00) [facility]anoKkrofvnEDHBNKEYTO0039-49-52 07:47:00 Test Item Value Reference Range Interpretation Comments Large Plt (test code = Slight *ABN*(09/01/2011 A Large Plt) 02:47:00) [facility]anoDeettcxHREWPHWSGC2464-03-45 07:47:00 Test Item Value Reference Range Interpretation Comments Tear Cell (test code = Tear Cell) [facility]anoYlouhuoKQJSFNIFRT7200-25-99 07:47:00 Test Item Value Reference Range Interpretation Comments Elliptocyte (test code = Slight A Elliptocyte) *ABN*(09/01/2011 02:47:00) [facility] AustinYobvbmaDICDNSPEY3461-22-14 07:47:00 Test Item Value Reference Range Interpretation Comments Magnesium Lvl (test code = Magnesium 1.5 1.8-2.4 L Lvl) [facility]anoFiowjlkFVMXVDDSSO8142-49-97 07:47:00 Test Item Value Reference Range Interpretation Comments Polychrom (test code = Slight (09/01/2011 N Polychrom) 02:47:00) [facility]anoCudaaagJQSKEVVRMT8331-21-67 07:47:00 Test Item Value Reference Range Interpretation Comments Anisocyte (test code = 1+ *ABN*(09/01/2011 A Anisocyte) 02:47:00) [facility]anoUpzecaeNLVPDQKBPJ0745-56-19 07:47:00 Test Item Value Reference Range Interpretation Comments Large Plt (test code = Slight *ABN*(09/01/2011 A Large Plt) 02:47:00) [facility]anoFfehjleVDCHQSQWAI0730-86-81 07:47:00 Test Item Value Reference Range Interpretation Comments Tear Cell (test code = Tear Cell) [facility] PlanoEkirsgjNDRYNKFZXT9737-47-96 07:47:00 Test Item Value Reference Range Interpretation Comments Elliptocyte (test code = Slight A Elliptocyte) *ABN*(09/01/2011 02:47:00) [facility] GLUCOSE AGBGKHD6755-19-02 17:02:00 Test Item Value Reference Range Interpretation Comments Comment1 (test code = Comment1) Notify RN/ [facility] GLUCOSE MWGJRPN7852-66-21 17:02:00 Test Item Value Reference Range Interpretation Comments Gluc POC Lifscn (test code = Gluc POC 134 65-110 H Lifscn) [facility] GLUCOSE COIBVHB8319-72-32 17:02:00 Test Item Value Reference Range Interpretation Comments Comment1 (test code = Comment1) Notify RN/ [facility] GLUCOSE [id number] 17:02:00 Test Item Value Reference Range Interpretation Comments Gluc POC Lifscn (test code = Gluc POC 134 65-110 H Lifscn) [facility] GLUCOSE [id number] 17:02:00 Test Item Value Reference Range Interpretation Comments Comment1 (test code = Comment1) Notify RN/ [facility] GLUCOSE [id number] 17:02:00 Test Item Value Reference Range Interpretation Comments Gluc POC Lifscn (test code = Gluc POC 134 65-110 H Lifscn) [facility] GLUCOSE [id number] 17:02:00 Test Item Value Reference Range Interpretation Comments Comment1 (test code = Comment1) Notify RN/ [facility] GLUCOSE [id number] 17:02:00 Test Item Value Reference Range Interpretation Comments Gluc POC Lifscn (test code = Gluc POC 134 65-110 H Lifscn) [facility] GLUCOSE [id number] 17:02:00 Test Item Value Reference Range Interpretation Comments Comment1 (test code = Comment1) Notify RN/ [facility] GLUCOSE [id number] 17:02:00 Test Item Value Reference Range Interpretation Comments Gluc POC Lifscn (test code = Gluc POC 134 65-110 H Lifscn) [facility] GLUCOSE [id number] 13:45:00 Test Item Value Reference Range Interpretation Comments Gluc POC Lifscn (test code = Gluc POC 182 65-110 H Lifscn) [facility] GLUCOSE [id number] 13:45:00 Test Item Value Reference Range Interpretation Comments Comment1 (test code = Comment1) Notify RN/ [facility] GLUCOSE [id number] 13:45:00 Test Item Value Reference Range Interpretation Comments Gluc POC Lifscn (test code = Gluc POC 182 65-110 H Lifscn) [facility] GLUCOSE [id number] 13:45:00 Test Item Value Reference Range Interpretation Comments Comment1 (test code = Comment1) Notify RN/ [facility] GLUCOSE [id number] 13:45:00 Test Item Value Reference Range Interpretation Comments Gluc POC Lifscn (test code = Gluc POC 182 65-110 H Lifscn) [facility] GLUCOSE [id number] 13:45:00 Test Item Value Reference Range Interpretation Comments Comment1 (test code = Comment1) Notify RN/ [facility] GLUCOSE [id number] 13:45:00 Test Item Value Reference Range Interpretation Comments Gluc POC Lifscn (test code = Gluc POC 182 65-110 H Lifscn) [facility] GLUCOSE [id number] 13:45:00 Test Item Value Reference Range Interpretation Comments Comment1 (test code = Comment1) Notify RN/ [facility] GLUCOSE [id number] 13:45:00 Test Item Value Reference Range Interpretation Comments Gluc POC Lifscn (test code = Gluc POC 182 65-110 H Lifscn) [facility] GLUCOSE [id number] 13:45:00 Test Item Value Reference Range Interpretation Comments Comment1 (test code = Comment1) [facility]YxwysszIEJZHOZOQ4007-14-92 10:22:00 Test Item Value Reference Range Interpretation Comments Phosphorus (test code = Phosphorus) 3.0 2.5-4.5 N [facility] AustinIfcodiyLBJYJXYXH7275-09-20 10:22:00 Test Item Value Reference Range Interpretation Comments Magnesium Lvl (test code = Magnesium 1.8 1.8-2.4 N Lvl) [facility] AustinIeansucHGJSHUNIE1346-83-02 10:22:00 Test Item Value Reference Range Interpretation Comments Chloride Lvl (test code = Chloride Lvl) 107 95-109 N [facility] AustinSugjuofELYKDTJNS7993-58-16 10:22:00 Test Item Value Reference Range Interpretation Comments Potassium Lvl (test code = Potassium 3.0 3.5-5.1 A Lvl) [facility] AustinZmvnudyEWBZPGABC2548-93-39 10:22:00 Test Item Value Reference Range Interpretation Comments Sodium Lvl (test code = Sodium Lvl) 141 135-145 N [facility] AustinQthypltRKMCQAZXN1570-69-18 10:22:00 Test Item Value Reference Range Interpretation Comments Creatinine Lvl (test code = Creatinine 0.6 0.5-1.4 N Lvl) [facility] AustinElvplvtFRFDERUND6961-42-36 10:22:00 Test Item Value Reference Range Interpretation Comments CO2 (test code = CO2) 23 24-32 L [facility] AustinSsddvpnEQPABAYLV5361-12-97 10:22:00 Test Item Value Reference Range Interpretation Comments Calcium Lvl (test code = Calcium Lvl) 7.3 8.5-10.5 L [facility] AustinBhlmvbbQCNWYRXJF7369-53-98 10:22:00 Test Item Value Reference Range Interpretation Comments Glucose Lvl (test code = Glucose Lvl) 136 [facility] AustinUkcoaeyFRBQFQQLF3381-10-03 10:22:00 Test Item Value Reference Range Interpretation Comments AGAP (test code = AGAP) 14.0 10.0-20.0 N [facility] AustinNcpevtlCAOWGBSFA4862-29-75 10:22:00 Test Item Value Reference Range Interpretation Comments BUN (test code = BUN) 5 7-22 L [facility]UghphtfKJGUXQIKJA3232-83-86 10:22:00 Test Item Value Reference Range Interpretation Comments Segs (test code = Segs) 69.6 45.0-75.0 N [facility]anoLaghnhyJTSOJTEIYS6103-95-66 10:22:00 Test Item Value Reference Range Interpretation Comments Lymphocytes (test code = Lymphocytes) 21.5 20.0-40.0 N [facility]anoPfmsnbkDWSYGSFGUE0342-30-43 10:22:00 Test Item Value Reference Range Interpretation Comments Monocytes (test code = Monocytes) 7.6 2.0-12.0 N [facility]anoIcucdkaOPQKDLKTHU7803-79-54 10:22:00 Test Item Value Reference Range Interpretation Comments Eosinophils (test code = 1.0 See_Comment N [A utomated message] The Eosinophils) system which nerated this result tra nsmitted reference range : <=4.0. The reference r leo was not used to int erpret this result as normal/abnormal . [facility]anoIpkizgdOEXXUBGEOG3006-76-69 10:22:00 Test Item Value Reference Range Interpretation Comments Basophils (test code = 0.3 See_Comment N [Aut omated message] The Basophils) system which ge nerated this result tra nsmitted reference range : <=1.0. The reference r leo was not used to int erpret this result as normal/abnormal . [facility]anoArktlimLXTYQHCKUI6609-45-35 10:22:00 Test Item Value Reference Range Interpretation Comments Segs-Bands # (test code = Segs-Bands #) 4.8 1.5-8.1 N [facility]anoZhkxnphSXLZYUMJJS0179-70-48 10:22:00 Test Item Value Reference Range Interpretation Comments Eosinophils # (test code 0.1 See_Comment N [A utomated message] The = Eosinophils #) system whic h generated this result tra nsmitted reference range : <=0.5. The reference r leo was not used to int erpret this result as normal/abnormal . [facility]anoTpsszraZKPLXEBIYP2606-72-59 10:22:00 Test Item Value Reference Range Interpretation Comments Lymphocytes # (test code = Lymphocytes 1.5 1.0-5.5 N #) [facility]anoKkehezwWGGPRTLUHU6687-39-99 10:22:00 Test Item Value Reference Range Interpretation Comments Monocytes # (test code 0.5 See_Comment N [Aut omated message] The = Monocytes #) system which generated this result tra nsmitted reference range : <=0.8. The reference r leo was not used to int erpret this result as normal/abnormal . [facility]anoGmwphgsLXFSZNVLXR4626-96-33 10:22:00 Test Item Value Reference Range Interpretation Comments Basophils # (test code 0.0 See_Comment N [Aut omated message] The = Basophils #) system which generated this result tra nsmitted reference range : <=0.2. The reference r leo was not used to int erpret this result as normal/abnormal . [facility]anoKpdzzylJYFKVBYSGE4656-55-05 10:22:00 Test Item Value Reference Range Interpretation Comments MPV (test code = MPV) 11.0 7.4-10.4 H [facility]anoQdqwlpfQIEWBFIFWR6050-72-59 10:22:00 Test Item Value Reference Range Interpretation Comments Platelet (test code = Platelet) 161 133-450 N [facility]anoKgveeceJWPGLSKQCG7549-78-38 10:22:00 Test Item Value Reference Range Interpretation Comments MCH (test code = MCH) 29.6 pg 27.0-31.0 N [facility]anoWyxvlrmRZOFWPGOOJ2185-92-47 10:22:00 Test Item Value Reference Range Interpretation Comments MCHC (test code = MCHC) 35.4 32.0-36.0 N [facility]anoXjdrsdbAPXIKNRRTR1407-62-39 10:22:00 Test Item Value Reference Range Interpretation Comments RDW (test code = RDW) 14.1 11.5-14.5 N [facility]anoWwdbdcaKANDVELPMD6935-48-00 10:22:00 Test Item Value Reference Range Interpretation Comments WBC (test code = WBC) 6.8 3.7-10.4 N [facility]anoKgtmrweYHGUSOJPIS7281-69-30 10:22:00 Test Item Value Reference Range Interpretation Comments MCV (test code = MCV) 83.5 81.0-99.0 N [facility]anoKfcylrmTDLTLMEWNC8479-45-79 10:22:00 Test Item Value Reference Range Interpretation Comments RBC (test code = RBC) 4.44 4.20-5.40 N [facility]anoZefywpoPJYZGOHFNX0829-41-55 10:22:00 Test Item Value Reference Range Interpretation Comments Hgb (test code = Hgb) 13.1 12.0-16.0 N [facility]anoTnmztspIXXKBTUXJT2444-86-11 10:22:00 Test Item Value Reference Range Interpretation Comments Hct (test code = Hct) 37.1 36.0-48.0 N [facility] AustinCvjuemqGSONELRZV6147-79-55 10:22:00 Test Item Value Reference Range Interpretation Comments Phosphorus (test code = Phosphorus) 3.0 2.5-4.5 N [facility] AustinKsdrrwqKDHHKCLVX6762-03-15 10:22:00 Test Item Value Reference Range Interpretation Comments Magnesium Lvl (test code = Magnesium 1.8 1.8-2.4 N Lvl) [facility] AustinZhvhzbjCJDXDMRBP5185-12-40 10:22:00 Test Item Value Reference Range Interpretation Comments Chloride Lvl (test code = Chloride Lvl) 107 95-109 N [facility] AustinFulhqrnZCPFKHOIG7960-56-72 10:22:00 Test Item Value Reference Range Interpretation Comments Potassium Lvl (test code = Potassium 3.0 3.5-5.1 A Lvl) [facility] AustinEaslelqVRVKGGKIP8342-11-94 10:22:00 Test Item Value Reference Range Interpretation Comments Sodium Lvl (test code = Sodium Lvl) 141 135-145 N [facility] AustinCuugvshPGPHOGMQS6431-53-81 10:22:00 Test Item Value Reference Range Interpretation Comments Creatinine Lvl (test code = Creatinine 0.6 0.5-1.4 N Lvl) [facility] AustinVigloyiQLRNZZWXE3640-00-47 10:22:00 Test Item Value Reference Range Interpretation Comments CO2 (test code = CO2) 23 24-32 L [facility] AustinDlamcwhRHLJPHDLD1952-19-29 10:22:00 Test Item Value Reference Range Interpretation Comments Calcium Lvl (test code = Calcium Lvl) 7.3 8.5-10.5 L [facility] AustinThevgbrFNLKNQBCY1921-29-06 10:22:00 Test Item Value Reference Range Interpretation Comments Glucose Lvl (test code = Glucose Lvl) 136 [facility] AustinVaniwbrZRADHCPQX2994-67-30 10:22:00 Test Item Value Reference Range Interpretation Comments AGAP (test code = AGAP) 14.0 10.0-20.0 N [facility] AustinFivbplgLCTDFBNRW7441-09-11 10:22:00 Test Item Value Reference Range Interpretation Comments BUN (test code = BUN) 5 7-22 L [facility]anoQfrrarhHDSSZYFMHC1753-90-76 10:22:00 Test Item Value Reference Range Interpretation Comments Segs (test code = Segs) 69.6 45.0-75.0 N [facility]anoMgnregkTRKSPUGQWZ0624-64-50 10:22:00 Test Item Value Reference Range Interpretation Comments Lymphocytes (test code = Lymphocytes) 21.5 20.0-40.0 N [facility]anoYamzilcZTURYHYGMB8380-55-42 10:22:00 Test Item Value Reference Range Interpretation Comments Monocytes (test code = Monocytes) 7.6 2.0-12.0 N [facility]anoLidoxydSDKLNTTHPI6685-63-98 10:22:00 Test Item Value Reference Range Interpretation Comments Eosinophils (test code = 1.0 See_Comment N [A utomated message] The Eosinophils) system which ge nerated this result tra nsmitted reference range : <=4.0. The reference r leo was not used to int erpret this result as normal/abnormal . [facility]anoHiernikSTXKFMSSJK3981-27-19 10:22:00 Test Item Value Reference Range Interpretation Comments Basophils (test code = 0.3 See_Comment N [Aut omated message] The Basophils) system which ge nerated this result tra nsmitted reference range : <=1.0. The reference r leo was not used to int erpret this result as normal/abnormal . [facility]anoFbqehphAOILFVHDXW3203-99-40 10:22:00 Test Item Value Reference Range Interpretation Comments Segs-Bands # (test code = Segs-Bands #) 4.8 1.5-8.1 N [facility]anoIspgvqdPXIBKJIBBX6029-84-36 10:22:00 Test Item Value Reference Range Interpretation Comments Eosinophils # (test code 0.1 See_Comment N [A utomated message] The = Eosinophils #) system whic h generated this result tra nsmitted reference range : <=0.5. The reference r leo was not used to int erpret this result as normal/abnormal . [facility]anoXpdskwsOJFVRTHKKG6860-06-36 10:22:00 Test Item Value Reference Range Interpretation Comments Lymphocytes # (test code = Lymphocytes 1.5 1.0-5.5 N #) [facility]anoMqyclrmLHTKMBAKEL5637-43-21 10:22:00 Test Item Value Reference Range Interpretation Comments Monocytes # (test code 0.5 See_Comment N [Aut omated message] The = Monocytes #) system which generated this result tra nsmitted reference range : <=0.8. The reference r leo was not used to int erpret this result as normal/abnormal . [facility]anoJkzscfpVTSKGMDSJJ0398-09-98 10:22:00 Test Item Value Reference Range Interpretation Comments Basophils # (test code 0.0 See_Comment N [Aut omated message] The = Basophils #) system which generated this result tra nsmitted reference range : <=0.2. The reference r leo was not used to int erpret this result as normal/abnormal . [facility]anoExmkeodECLYEWELNP2952-00-96 10:22:00 Test Item Value Reference Range Interpretation Comments MPV (test code = MPV) 11.0 7.4-10.4 H [facility]anoVsnutclWINKNAKTQY6498-40-04 10:22:00 Test Item Value Reference Range Interpretation Comments Platelet (test code = Platelet) 161 133-450 N [facility]anoTuieagqFGGPITGJYP9786-49-97 10:22:00 Test Item Value Reference Range Interpretation Comments MCH (test code = MCH) 29.6 pg 27.0-31.0 N [facility]anoTrzdgkkJUVIPRSHTE9123-37-20 10:22:00 Test Item Value Reference Range Interpretation Comments MCHC (test code = MCHC) 35.4 32.0-36.0 N [facility]anoZelltuwUOSOQOHDQJ1170-47-92 10:22:00 Test Item Value Reference Range Interpretation Comments RDW (test code = RDW) 14.1 11.5-14.5 N [facility]anoEmzasiaXWXUEZRRXV8736-54-75 10:22:00 Test Item Value Reference Range Interpretation Comments WBC (test code = WBC) 6.8 3.7-10.4 N [facility]anoFmynpepCCHYEXGVSM3151-12-00 10:22:00 Test Item Value Reference Range Interpretation Comments MCV (test code = MCV) 83.5 81.0-99.0 N [facility]anoGqqimwhAECUDDURVH0535-54-75 10:22:00 Test Item Value Reference Range Interpretation Comments RBC (test code = RBC) 4.44 4.20-5.40 N [facility]anoJaykdvaNBRITVCCZE1548-45-12 10:22:00 Test Item Value Reference Range Interpretation Comments Hgb (test code = Hgb) 13.1 12.0-16.0 N [facility]anoNsdonmjSDPECWKOPU7455-80-78 10:22:00 Test Item Value Reference Range Interpretation Comments Hct (test code = Hct) 37.1 36.0-48.0 N [facility] AustinYpmdyzdAUMBACKAF9601-29-12 10:22:00 Test Item Value Reference Range Interpretation Comments Phosphorus (test code = Phosphorus) 3.0 2.5-4.5 N [facility] AustinNcelovdHACFLBICJ7770-94-30 10:22:00 Test Item Value Reference Range Interpretation Comments Magnesium Lvl (test code = Magnesium 1.8 1.8-2.4 N Lvl) [facility] AustinPmbtullOCUTKKGRW5457-33-59 10:22:00 Test Item Value Reference Range Interpretation Comments Chloride Lvl (test code = Chloride Lvl) 107 95-109 N [facility] AustinOfvlrzwGAIFDANAD7195-12-78 10:22:00 Test Item Value Reference Range Interpretation Comments Potassium Lvl (test code = Potassium 3.0 3.5-5.1 A Lvl) [facility] AustinZlthfqfANVJNVNDY6056-33-05 10:22:00 Test Item Value Reference Range Interpretation Comments Sodium Lvl (test code = Sodium Lvl) 141 135-145 N [facility] AustinBstffqpNFQDNCPTY8161-38-59 10:22:00 Test Item Value Reference Range Interpretation Comments Creatinine Lvl (test code = Creatinine 0.6 0.5-1.4 N Lvl) [facility] AustinNqofeqjOGRGCJQVL0236-35-42 10:22:00 Test Item Value Reference Range Interpretation Comments CO2 (test code = CO2) 23 24-32 L [facility] AustinPlrpbrsGCDAVQLKP4982-57-06 10:22:00 Test Item Value Reference Range Interpretation Comments Calcium Lvl (test code = Calcium Lvl) 7.3 8.5-10.5 L [facility] AustinZmergolVSTHCRREQ7284-78-17 10:22:00 Test Item Value Reference Range Interpretation Comments Glucose Lvl (test code = Glucose Lvl) 136 [facility] AustinIubiupsKWUHCGLCV5328-83-05 10:22:00 Test Item Value Reference Range Interpretation Comments AGAP (test code = AGAP) 14.0 10.0-20.0 N [facility] AustinXbwboigLIPIDCOVZ0507-98-40 10:22:00 Test Item Value Reference Range Interpretation Comments BUN (test code = BUN) 5 7-22 L [facility]anoGhklollWXYKCLTYQE7710-38-61 10:22:00 Test Item Value Reference Range Interpretation Comments Segs (test code = Segs) 69.6 45.0-75.0 N [facility]anoTptbjocBAFVEQNLNR1967-67-58 10:22:00 Test Item Value Reference Range Interpretation Comments Lymphocytes (test code = Lymphocytes) 21.5 20.0-40.0 N [facility]anoGygiaclDTAMJCDHCV5624-09-54 10:22:00 Test Item Value Reference Range Interpretation Comments Monocytes (test code = Monocytes) 7.6 2.0-12.0 N [facility]anoDgivrpqTVOYJJUBCH9743-27-96 10:22:00 Test Item Value Reference Range Interpretation Comments Eosinophils (test code = 1.0 See_Comment N [A utomated message] The Eosinophils) system which ge nerated this result tra nsmitted reference range : <=4.0. The reference r leo was not used to int erpret this result as normal/abnormal . [facility]anoItjsjasQOHSUYRPPH7904-38-91 10:22:00 Test Item Value Reference Range Interpretation Comments Basophils (test code = 0.3 See_Comment N [Aut omated message] The Basophils) system which ge nerated this result tra nsmitted reference range : <=1.0. The reference r leo was not used to int erpret this result as normal/abnormal . [facility]anoSighfwqRJSHOCKAUT1168-69-56 10:22:00 Test Item Value Reference Range Interpretation Comments Segs-Bands # (test code = Segs-Bands #) 4.8 1.5-8.1 N [facility]anoWffxnbePUXCOUXTHI0396-61-53 10:22:00 Test Item Value Reference Range Interpretation Comments Eosinophils # (test code 0.1 See_Comment N [A utomated message] The = Eosinophils #) system whic h generated this result tra nsmitted reference range : <=0.5. The reference r leo was not used to int erpret this result as normal/abnormal . [facility]anoDnebvgmKWTOVWXCXH0852-95-52 10:22:00 Test Item Value Reference Range Interpretation Comments Lymphocytes # (test code = Lymphocytes 1.5 1.0-5.5 N #) [facility]anoBtijqafTTQNTTPRPG7807-54-32 10:22:00 Test Item Value Reference Range Interpretation Comments Monocytes # (test code 0.5 See_Comment N [Aut omated message] The = Monocytes #) system which generated this result tra nsmitted reference range : <=0.8. The reference r leo was not used to int erpret this result as normal/abnormal . [facility]anoMszmdedSKKDLWIPTJ9761-04-26 10:22:00 Test Item Value Reference Range Interpretation Comments Basophils # (test code 0.0 See_Comment N [Aut omated message] The = Basophils #) system which generated this result tra nsmitted reference range : <=0.2. The reference r leo was not used to int erpret this result as normal/abnormal . [facility]anoLbfqxkaUMVFCBDDGH6027-01-40 10:22:00 Test Item Value Reference Range Interpretation Comments MPV (test code = MPV) 11.0 7.4-10.4 H [facility]anoKbjowzwCQHANLVRKU1551-43-31 10:22:00 Test Item Value Reference Range Interpretation Comments Platelet (test code = Platelet) 161 133-450 N [facility]anoOshzqpzTXHSPIGYFG6439-32-99 10:22:00 Test Item Value Reference Range Interpretation Comments MCH (test code = MCH) 29.6 pg 27.0-31.0 N [facility]anoCkbocneWUBOGFCDJC2812-13-93 10:22:00 Test Item Value Reference Range Interpretation Comments MCHC (test code = MCHC) 35.4 32.0-36.0 N [facility] PlanoLsaaejnFAAXBDMFIJ0522-67-55 10:22:00 Test Item Value Reference Range Interpretation Comments RDW (test code = RDW) 14.1 11.5-14.5 N [facility]anoLctcusdYAWNGOBLMP4931-23-23 10:22:00 Test Item Value Reference Range Interpretation Comments WBC (test code = WBC) 6.8 3.7-10.4 N [facility] PlanoDbqmjqaMZQCSQVZWG8040-36-00 10:22:00 Test Item Value Reference Range Interpretation Comments MCV (test code = MCV) 83.5 81.0-99.0 N [facility]anoEnsynosSLJBEQSBNT8051-00-75 10:22:00 Test Item Value Reference Range Interpretation Comments RBC (test code = RBC) 4.44 4.20-5.40 N [facility]anoZrrrwqsNNVHLSTWBX4788-42-22 10:22:00 Test Item Value Reference Range Interpretation Comments Hgb (test code = Hgb) 13.1 12.0-16.0 N [facility]anoFmbznufZWPHTTSYQD6531-75-72 10:22:00 Test Item Value Reference Range Interpretation Comments Hct (test code = Hct) 37.1 36.0-48.0 N [facility] AustinMspizmqJBVZLBEQP6004-97-12 10:22:00 Test Item Value Reference Range Interpretation Comments Phosphorus (test code = Phosphorus) 3.0 2.5-4.5 N [facility] AustinBbcykxvNAFDKVGPC4001-59-16 10:22:00 Test Item Value Reference Range Interpretation Comments Magnesium Lvl (test code = Magnesium 1.8 1.8-2.4 N Lvl) [facility] AustinGlmwxaxNYMYQMRRH5485-93-88 10:22:00 Test Item Value Reference Range Interpretation Comments Chloride Lvl (test code = Chloride Lvl) 107 95-109 N [facility] AustinAzfswbtIAFLAQMTM9275-37-55 10:22:00 Test Item Value Reference Range Interpretation Comments Potassium Lvl (test code = Potassium 3.0 3.5-5.1 A Lvl) [facility] AustinQlyfkhkCUAIYRVCG6806-54-59 10:22:00 Test Item Value Reference Range Interpretation Comments Sodium Lvl (test code = Sodium Lvl) 141 135-145 N [facility] AustinKberpioEONYFHOOP8721-28-26 10:22:00 Test Item Value Reference Range Interpretation Comments Creatinine Lvl (test code = Creatinine 0.6 0.5-1.4 N Lvl) [facility] AustinAasmysjJMCVMFDGV6634-94-07 10:22:00 Test Item Value Reference Range Interpretation Comments CO2 (test code = CO2) 23 24-32 L [facility] AustinZmzupycQFEAHGRWA4859-63-24 10:22:00 Test Item Value Reference Range Interpretation Comments Calcium Lvl (test code = Calcium Lvl) 7.3 8.5-10.5 L [facility] AustinMfwljlpFNJYVPIAV9657-95-53 10:22:00 Test Item Value Reference Range Interpretation Comments Glucose Lvl (test code = Glucose Lvl) 136 [facility] AustinQfkxyszWKINVXXDI4184-69-32 10:22:00 Test Item Value Reference Range Interpretation Comments AGAP (test code = AGAP) 14.0 10.0-20.0 N [facility] AustinVdosnlaTOZAKXXZE6053-06-93 10:22:00 Test Item Value Reference Range Interpretation Comments BUN (test code = BUN) 5 7-22 L [facility]anoGpzwkodFGVGOARBOP4508-15-40 10:22:00 Test Item Value Reference Range Interpretation Comments Segs (test code = Segs) 69.6 45.0-75.0 N [facility]anoDtkdrwiRYEFPKABPO4794-66-29 10:22:00 Test Item Value Reference Range Interpretation Comments Lymphocytes (test code = Lymphocytes) 21.5 20.0-40.0 N [facility]anoLehqiqcBRDYWHRVZV0010-22-33 10:22:00 Test Item Value Reference Range Interpretation Comments Monocytes (test code = Monocytes) 7.6 2.0-12.0 N [facility]anoRtzzfgbZIKAIBTCQX8482-08-40 10:22:00 Test Item Value Reference Range Interpretation Comments Eosinophils (test code = 1.0 See_Comment N [A utomated message] The Eosinophils) system which ge nerated this result tra nsmitted reference range : <=4.0. The reference r leo was not used to int erpret this result as normal/abnormal . [facility]anoLcgbcjkZLDVAJDDAE9610-39-84 10:22:00 Test Item Value Reference Range Interpretation Comments Basophils (test code = 0.3 See_Comment N [Aut omated message] The Basophils) system which ge nerated this result tra nsmitted reference range : <=1.0. The reference r leo was not used to int erpret this result as normal/abnormal . [facility]anoSfpydihLKRYSJOTMF2768-49-23 10:22:00 Test Item Value Reference Range Interpretation Comments Segs-Bands # (test code = Segs-Bands #) 4.8 1.5-8.1 N [facility]anoQnuvvdvVWXTQGTUHU2156-37-27 10:22:00 Test Item Value Reference Range Interpretation Comments Eosinophils # (test code 0.1 See_Comment N [A utomated message] The = Eosinophils #) system [facility] h generated this result tra nsmitted reference range : <=0.5. The reference r leo was not used to int erpret this result as normal/abnormal . [facility]anoDgzolnuVKLKFVRNQZ1723-80-48 10:22:00 Test Item Value Reference Range Interpretation Comments Lymphocytes # (test code = Lymphocytes 1.5 1.0-5.5 N #) [facility]anoJouxegbBXKCFQDWLT7628-13-87 10:22:00 Test Item Value Reference Range Interpretation Comments Monocytes # (test code 0.5 See_Comment N [Aut omated message] The = Monocytes #) system which generated this result tra nsmitted reference range : <=0.8. The reference r leo was not used to int erpret this result as normal/abnormal . [facility]anoCfrjhraOWJYBBYWHM4502-57-42 10:22:00 Test Item Value Reference Range Interpretation Comments Basophils # (test code 0.0 See_Comment N [Aut omated message] The = Basophils #) system which generated this result tra nsmitted reference range : <=0.2. The reference r leo was not used to int erpret this result as normal/abnormal . [facility]anoFjzjsarEYYJWFSKDC5449-94-53 10:22:00 Test Item Value Reference Range Interpretation Comments MPV (test code = MPV) 11.0 7.4-10.4 H [facility]anoFlaoijsIRBAMDNPRR9251-26-77 10:22:00 Test Item Value Reference Range Interpretation Comments Platelet (test code = Platelet) 161 133-450 N [facility]anoVqlnqkxXXIKGIVEEI2475-11-43 10:22:00 Test Item Value Reference Range Interpretation Comments MCH (test code = MCH) 29.6 pg 27.0-31.0 N [facility]anoVgtlkovBJMHNPCOKA1703-89-66 10:22:00 Test Item Value Reference Range Interpretation Comments MCHC (test code = MCHC) 35.4 32.0-36.0 N [facility]anoHmynoxyIRGTYNFQLT3737-95-33 10:22:00 Test Item Value Reference Range Interpretation Comments RDW (test code = RDW) 14.1 11.5-14.5 N [facility]anoIorjeafPAEVAJUUZD5128-57-57 10:22:00 Test Item Value Reference Range Interpretation Comments WBC (test code = WBC) 6.8 3.7-10.4 N [facility]anoXqapppiISAIYJTQWM7163-87-68 10:22:00 Test Item Value Reference Range Interpretation Comments MCV (test code = MCV) 83.5 81.0-99.0 N [facility]anoUfismsxGBZCWATFGK7957-57-09 10:22:00 Test Item Value Reference Range Interpretation Comments RBC (test code = RBC) 4.44 4.20-5.40 N [facility]anoHryrnpfSDXDXTFAPS6225-13-73 10:22:00 Test Item Value Reference Range Interpretation Comments Hgb (test code = Hgb) 13.1 12.0-16.0 N [facility]anoFqyumyrFEHGUZKEEC6797-51-12 10:22:00 Test Item Value Reference Range Interpretation Comments Hct (test code = Hct) 37.1 36.0-48.0 N [facility] AustinYizhoigMMENMRBVS0902-20-55 10:22:00 Test Item Value Reference Range Interpretation Comments Phosphorus (test code = Phosphorus) 3.0 2.5-4.5 N [facility] AustinTodznhbDGBBKSCIO8659-70-49 10:22:00 Test Item Value Reference Range Interpretation Comments Magnesium Lvl (test code = Magnesium 1.8 1.8-2.4 N Lvl) [facility] AustinSypqsziGRNMGQGIF8640-78-34 10:22:00 Test Item Value Reference Range Interpretation Comments Chloride Lvl (test code = Chloride Lvl) 107 95-109 N [facility] AustinEiyhvpjPLSAHTHGM7740-77-64 10:22:00 Test Item Value Reference Range Interpretation Comments Potassium Lvl (test code = Potassium 3.0 3.5-5.1 A Lvl) [facility] AustinUijkpbtVINYDEKTA2533-14-18 10:22:00 Test Item Value Reference Range Interpretation Comments Sodium Lvl (test code = Sodium Lvl) 141 135-145 N [facility] AustinUhluwsmMOINIGNAW4351-47-53 10:22:00 Test Item Value Reference Range Interpretation Comments Creatinine Lvl (test code = Creatinine 0.6 0.5-1.4 N Lvl) [facility] AustinFtybnwyYVHRVWVAM7092-53-38 10:22:00 Test Item Value Reference Range Interpretation Comments CO2 (test code = CO2) 23 24-32 L [facility] AustinHqiqzpbOGGWNXCKY7141-95-93 10:22:00 Test Item Value Reference Range Interpretation Comments Calcium Lvl (test code = Calcium Lvl) 7.3 8.5-10.5 L [facility] AustinXnqybxzYQNCPZOQC8314-50-82 10:22:00 Test Item Value Reference Range Interpretation Comments Glucose Lvl (test code = Glucose Lvl) 136 [facility] AustinUollszkQXSLTOXCT0295-68-68 10:22:00 Test Item Value Reference Range Interpretation Comments AGAP (test code = AGAP) 14.0 10.0-20.0 N [facility] AustinYsiirsnPNTQEXMTU6327-93-82 10:22:00 Test Item Value Reference Range Interpretation Comments BUN (test code = BUN) 5 7-22 L [facility]anoAgpgenjPYWHEJDTGS5470-91-59 10:22:00 Test Item Value Reference Range Interpretation Comments Segs (test code = Segs) 69.6 45.0-75.0 N [facility]anoVudoyxlBZQZNEYFRF1039-29-63 10:22:00 Test Item Value Reference Range Interpretation Comments Lymphocytes (test code = Lymphocytes) 21.5 20.0-40.0 N [facility]anoCkyiuqqAKNFABHPGT0743-45-35 10:22:00 Test Item Value Reference Range Interpretation Comments Monocytes (test code = Monocytes) 7.6 2.0-12.0 N [facility]anoGtfyelzDXBPRKMTCQ5299-05-34 10:22:00 Test Item Value Reference Range Interpretation Comments Eosinophils (test code = 1.0 See_Comment N [A utomated message] The Eosinophils) system which ge nerated this result tra nsmitted reference range : <=4.0. The reference r leo was not used to int erpret this result as normal/abnormal . [facility]anoLwmfilnAUHEJBNRGQ0884-25-35 10:22:00 Test Item Value Reference Range Interpretation Comments Basophils (test code = 0.3 See_Comment N [Aut omated message] The Basophils) system which ge nerated this result tra nsmitted reference range : <=1.0. The reference r leo was not used to int erpret this result as normal/abnormal . [facility]anoRrisuaxKEEOXVQPIZ2539-02-82 10:22:00 Test Item Value Reference Range Interpretation Comments Segs-Bands # (test code = Segs-Bands #) 4.8 1.5-8.1 N [facility]anoKtwwdfjFENCTJOYDF7109-69-03 10:22:00 Test Item Value Reference Range Interpretation Comments Eosinophils # (test code 0.1 See_Comment N [A utomated message] The = Eosinophils #) system whic h generated this result tra nsmitted reference range : <=0.5. The reference r leo was not used to int erpret this result as normal/abnormal . [facility]anoXviyyiuHPNRJGUTGX7404-12-17 10:22:00 Test Item Value Reference Range Interpretation Comments Lymphocytes # (test code = Lymphocytes 1.5 1.0-5.5 N #) [facility]anoIwotkbuNOZFRMGLOS3524-27-16 10:22:00 Test Item Value Reference Range Interpretation Comments Monocytes # (test code 0.5 See_Comment N [Aut omated message] The = Monocytes #) system which generated this result tra nsmitted reference range : <=0.8. The reference r leo was not used to int erpret this result as normal/abnormal . [facility]anoKjbtzqvJKKPQFOYAL9065-32-73 10:22:00 Test Item Value Reference Range Interpretation Comments Basophils # (test code 0.0 See_Comment N [Aut omated message] The = Basophils #) system which generated this result tra nsmitted reference range : <=0.2. The reference r leo was not used to int erpret this result as normal/abnormal . [facility]anoLavaosjUTVIFICXZY7149-79-35 10:22:00 Test Item Value Reference Range Interpretation Comments MPV (test code = MPV) 11.0 7.4-10.4 H [facility]anoSduexffNKAWZDIHHH9899-71-03 10:22:00 Test Item Value Reference Range Interpretation Comments Platelet (test code = Platelet) 161 133-450 N [facility]anoRpupxqdVRNOYWDJFZ5755-00-40 10:22:00 Test Item Value Reference Range Interpretation Comments MCH (test code = MCH) 29.6 pg 27.0-31.0 N [facility]anoSddiynkEUGLRDTSSP8645-39-40 10:22:00 Test Item Value Reference Range Interpretation Comments MCHC (test code = MCHC) 35.4 32.0-36.0 N [facility]anoEklevxqQVVFCLNYII4561-90-22 10:22:00 Test Item Value Reference Range Interpretation Comments RDW (test code = RDW) 14.1 11.5-14.5 N [facility]anoHxuxcsiIQPXSBMCUT4851-16-57 10:22:00 Test Item Value Reference Range Interpretation Comments WBC (test code = WBC) 6.8 3.7-10.4 N [facility]anoTmbyvlzBCPJCTKDSB8181-36-68 10:22:00 Test Item Value Reference Range Interpretation Comments MCV (test code = MCV) 83.5 81.0-99.0 N [facility]anoYqosuddYDJMHTTCCR5133-55-20 10:22:00 Test Item Value Reference Range Interpretation Comments RBC (test code = RBC) 4.44 4.20-5.40 N [facility]anoUsgappiQAVAQEBAMG8597-20-37 10:22:00 Test Item Value Reference Range Interpretation Comments Hgb (test code = Hgb) 13.1 12.0-16.0 N [facility]anoMijceurJBLAAVERBU3461-15-89 10:22:00 Test Item Value Reference Range Interpretation Comments Hct (test code = Hct) 37.1 36.0-48.0 N [facility] GLUCOSE UFZTWPI9536-24-22 02:20:00 Test Item Value Reference Range Interpretation Comments Comment1 (test code = Comment1) Notify RN/ [facility] GLUCOSE MJTFFYO2186-02-98 02:20:00 Test Item Value Reference Range Interpretation Comments Gluc POC Lifscn (test code = Gluc POC 332 65-110 H Lifscn) [facility] GLUCOSE FKCAAGE6451-09-78 02:20:00 Test Item Value Reference Range Interpretation Comments Comment1 (test code = Comment1) Notify RN/ [facility] GLUCOSE GOMOKHS2377-16-32 02:20:00 Test Item Value Reference Range Interpretation Comments Gluc POC Lifscn (test code = Gluc POC 332 65-110 H Lifscn) [facility] GLUCOSE HHQOQKQ1026-08-77 02:20:00 Test Item Value Reference Range Interpretation Comments Comment1 (test code = Comment1) Notify RN/ [facility] GLUCOSE MFHDUPN5806-88-56 02:20:00 Test Item Value Reference Range Interpretation Comments Gluc POC Lifscn (test code = Gluc POC 332 65-110 H Lifscn) [facility] GLUCOSE CFULAPB4171-48-13 02:20:00 Test Item Value Reference Range Interpretation Comments Comment1 (test code = Comment1) Notify RN/ [facility] GLUCOSE OKJEXRA1326-89-66 02:20:00 Test Item Value Reference Range Interpretation Comments Gluc POC Lifscn (test code = Gluc POC 332 65-110 H Lifscn) [facility] GLUCOSE ZITGXEC4319-86-54 02:20:00 Test Item Value Reference Range Interpretation Comments Comment1 (test code = Comment1) Notify RN/MD [facility] GLUCOSE RSYVOKK0858-72-33 02:20:00 Test Item Value Reference Range Interpretation Comments Gluc POC Lifscn (test code = Gluc POC 332 65-110 H Lifscn) [facility] AustinIvjyxkzDMGQBSIPB3189-79-16 09:47:00 Test Item Value Reference Range Interpretation Comments Phosphorus (test code = Phosphorus) 2.5 2.5-4.5 N [facility] AustinBzviwsrZUFAXRSQW2797-92-31 09:47:00 Test Item Value Reference Range Interpretation Comments Glucose Lvl (test code = Glucose Lvl) 201 [facility] AustinEquevmvSEDTMFJNW5906-81-99 09:47:00 Test Item Value Reference Range Interpretation Comments BUN (test code = BUN) 7 7-22 N [facility] AustinParvvwmWMHVCUDJV3254-43-31 09:47:00 Test Item Value Reference Range Interpretation Comments CO2 (test code = CO2) 19 24-32 L [facility] AustinNianhreEXJTQBJWB0739-67-90 09:47:00 Test Item Value Reference Range Interpretation Comments Creatinine Lvl (test code = Creatinine 0.3 0.5-1.4 L Lvl) [facility] AustinLbjxhvnHLPJBASUR6202-16-56 09:47:00 Test Item Value Reference Range Interpretation Comments Sodium Lvl (test code = Sodium Lvl) 137 135-145 N [facility] AustinHntxxvwKCQPCXDLQ6375-23-68 09:47:00 Test Item Value Reference Range Interpretation Comments Chloride Lvl (test code = Chloride Lvl) 103 95-109 N [facility] AustinBkaicxwMOLXPTBBD4700-98-89 09:47:00 Test Item Value Reference Range Interpretation Comments Potassium Lvl (test code = Potassium 3.6 3.5-5.1 N Lvl) [facility] AustinLugxbfnISZVRDIQD5701-87-06 09:47:00 Test Item Value Reference Range Interpretation Comments Calcium Lvl (test code = Calcium Lvl) 7.9 8.5-10.5 L [facility] AustinYlsegbnXXIHQZYKD5028-87-98 09:47:00 Test Item Value Reference Range Interpretation Comments AGAP (test code = AGAP) 18.6 10.0-20.0 N [facility] AustinBkfolrlEJVCKSZVE6998-28-38 09:47:00 Test Item Value Reference Range Interpretation Comments Magnesium Lvl (test code = Magnesium 1.6 1.8-2.4 L Lvl) [facility]anoMcuhyozUNWGFDZPTH3118-66-78 09:47:00 Test Item Value Reference Range Interpretation Comments Basophils # (test code 0.0 See_Comment N [Aut omated message] The = Basophils #) system which generated this result tra nsmitted reference range : <=0.2. The reference r leo was not used to int erpret this result as normal/abnormal . [facility]anoHwwltpgTGIQHXEJUA5396-45-90 09:47:00 Test Item Value Reference Range Interpretation Comments Eosinophils (test code = 0.4 See_Comment N [A utomated message] The Eosinophils) system which ge nerated this result tra nsmitted reference range : <=4.0. The reference r leo was not used to int erpret this result as normal/abnormal . [facility]anoVjeoedqCFYDAHZNNE2322-10-55 09:47:00 Test Item Value Reference Range Interpretation Comments Basophils (test code = 0.5 See_Comment N [Aut omated message] The Basophils) system which ge nerated this result tra nsmitted reference range : <=1.0. The reference r leo was not used to int erpret this result as normal/abnormal . [facility]anoHhbfvlfQQXHVFDQME6572-00-20 09:47:00 Test Item Value Reference Range Interpretation Comments Segs-Bands # (test code = Segs-Bands #) 5.9 1.5-8.1 N [facility]anoMzcnppnQGIYNMZCDY3336-98-02 09:47:00 Test Item Value Reference Range Interpretation Comments Lymphocytes # (test code = Lymphocytes 1.2 1.0-5.5 N #) [facility]anoUbcdfutZNFJOTDWXM4362-12-45 09:47:00 Test Item Value Reference Range Interpretation Comments Monocytes # (test code 0.5 See_Comment N [Aut omated message] The = Monocytes #) system which generated this result tra nsmitted reference range : <=0.8. The reference r leo was not used to int erpret this result as normal/abnormal . [facility]anoKhceaayMAFSHROHIJ9388-76-24 09:47:00 Test Item Value Reference Range Interpretation Comments Eosinophils # (test code 0.0 See_Comment N [A utomated message] The = Eosinophils #) system whic h generated this result tra nsmitted reference range : <=0.5. The reference r leo was not used to int erpret this result as normal/abnormal . [facility]anoQvmppuxCIVWMQJQHX3217-55-52 09:47:00 Test Item Value Reference Range Interpretation Comments Segs (test code = Segs) 76.9 45.0-75.0 H [facility]anoVarkmwrFSBVERNPOI0523-62-58 09:47:00 Test Item Value Reference Range Interpretation Comments Lymphocytes (test code = Lymphocytes) 15.9 20.0-40.0 L [facility]anoUpnafgbTFXYGZBYBQ5383-72-87 09:47:00 Test Item Value Reference Range Interpretation Comments Monocytes (test code = Monocytes) 6.3 2.0-12.0 N [facility]anoMpzcalmXWIYBLVLZU9470-52-45 09:47:00 Test Item Value Reference Range Interpretation Comments MCV (test code = MCV) 82.8 81.0-99.0 N [facility]anoTzejylnINEZNQFFDL1410-68-32 09:47:00 Test Item Value Reference Range Interpretation Comments Hct (test code = Hct) 39.7 36.0-48.0 N [facility]anoOuauizwVNXLXKRTSJ0241-99-51 09:47:00 Test Item Value Reference Range Interpretation Comments MCH (test code = MCH) 29.1 pg 27.0-31.0 N [facility]anoTitnnfcVKVCCLDXUU8568-58-03 09:47:00 Test Item Value Reference Range Interpretation Comments Hgb (test code = Hgb) 14.0 12.0-16.0 N [facility]anoGmmzpptWWKYOCZXRZ7977-62-18 09:47:00 Test Item Value Reference Range Interpretation Comments MCHC (test code = MCHC) 35.2 32.0-36.0 N [facility]anoBnnqxaqZGDYPXINUU5289-71-46 09:47:00 Test Item Value Reference Range Interpretation Comments RDW (test code = RDW) 13.9 11.5-14.5 N [facility]anoDkddzvkZKGPBHZQEW5499-08-73 09:47:00 Test Item Value Reference Range Interpretation Comments Platelet (test code = Platelet) 160 133-450 N [facility]anoCltawgoXSLJITYYGQ0864-24-84 09:47:00 Test Item Value Reference Range Interpretation Comments MPV (test code = MPV) 11.9 7.4-10.4 H [facility]anoOaffukxKEJVQBPNMJ2662-78-76 09:47:00 Test Item Value Reference Range Interpretation Comments WBC (test code = WBC) 7.7 3.7-10.4 N [facility]anoIpmlojhHLYCOKSVME1738-19-96 09:47:00 Test Item Value Reference Range Interpretation Comments RBC (test code = RBC) 4.80 4.20-5.40 N [facility] AustinQowquexTZZBQQQGS1086-69-15 09:47:00 Test Item Value Reference Range Interpretation Comments Phosphorus (test code = Phosphorus) 2.5 2.5-4.5 N [facility] AustinAttnkqmVRBMWWZZR5705-19-71 09:47:00 Test Item Value Reference Range Interpretation Comments Glucose Lvl (test code = Glucose Lvl) 201 [facility] AustinDhbehfhPFGHFHVZC5761-23-90 09:47:00 Test Item Value Reference Range Interpretation Comments BUN (test code = BUN) 7 7-22 N [facility] AustinAwqvuioXXWIKMLCC6926-88-33 09:47:00 Test Item Value Reference Range Interpretation Comments CO2 (test code = CO2) 19 24-32 L [facility] AustinRkxmxzzBXQBRREXF2414-79-49 09:47:00 Test Item Value Reference Range Interpretation Comments Creatinine Lvl (test code = Creatinine 0.3 0.5-1.4 L Lvl) [facility] AustinChfvbywBACKCGWUQ6645-71-60 09:47:00 Test Item Value Reference Range Interpretation Comments Sodium Lvl (test code = Sodium Lvl) 137 135-145 N [facility] AustinCqxedgbXNNZIBZZT4678-48-10 09:47:00 Test Item Value Reference Range Interpretation Comments Chloride Lvl (test code = Chloride Lvl) 103 95-109 N [facility] AustinQffbyteBBBWLUKDX5304-11-24 09:47:00 Test Item Value Reference Range Interpretation Comments Potassium Lvl (test code = Potassium 3.6 3.5-5.1 N Lvl) [facility] AustinRtlxwjyDBMZGIMCP1804-86-59 09:47:00 Test Item Value Reference Range Interpretation Comments Calcium Lvl (test code = Calcium Lvl) 7.9 8.5-10.5 L [facility] AustinZelewezZOYLDCRFJ6696-03-56 09:47:00 Test Item Value Reference Range Interpretation Comments AGAP (test code = AGAP) 18.6 10.0-20.0 N [facility] AustinTpjbrkkOEIYTZOTZ7029-68-01 09:47:00 Test Item Value Reference Range Interpretation Comments Magnesium Lvl (test code = Magnesium 1.6 1.8-2.4 L Lvl) [facility]anoTasmwtbPNHPHLPLEN5342-74-86 09:47:00 Test Item Value Reference Range Interpretation Comments Basophils # (test code 0.0 See_Comment N [Aut omated message] The = Basophils #) system which generated this result tra nsmitted reference range : <=0.2. The reference r leo was not used to int erpret this result as normal/abnormal . [facility]anoHmugebgYRWTJMBXDA5857-36-80 09:47:00 Test Item Value Reference Range Interpretation Comments Eosinophils (test code = 0.4 See_Comment N [A utomated message] The Eosinophils) system which ge nerated this result tra nsmitted reference range : <=4.0. The reference r leo was not used to int erpret this result as normal/abnormal . [facility]anoRlppkjhLAHLYLDWIS1936-26-96 09:47:00 Test Item Value Reference Range Interpretation Comments Basophils (test code = 0.5 See_Comment N [Aut omated message] The Basophils) system which ge nerated this result tra nsmitted reference range : <=1.0. The reference r leo was not used to int erpret this result as normal/abnormal . [facility]anoAamvrfoCMZBBCFEHE2170-74-42 09:47:00 Test Item Value Reference Range Interpretation Comments Segs-Bands # (test code = Segs-Bands #) 5.9 1.5-8.1 N [facility]anoZlgpmflHEGIBVGEMB1192-15-01 09:47:00 Test Item Value Reference Range Interpretation Comments Lymphocytes # (test code = Lymphocytes 1.2 1.0-5.5 N #) [facility]anoCkbqvrlNCOYCUBFCJ0653-86-34 09:47:00 Test Item Value Reference Range Interpretation Comments Monocytes # (test code 0.5 See_Comment N [Aut omated message] The = Monocytes #) system which generated this result tra nsmitted reference range : <=0.8. The reference r leo was not used to int erpret this result as normal/abnormal . [facility]anoRtkbiskUABGKLZVPG9724-54-24 09:47:00 Test Item Value Reference Range Interpretation Comments Eosinophils # (test code 0.0 See_Comment N [A utomated message] The = Eosinophils #) system whic h generated this result tra nsmitted reference range : <=0.5. The reference r leo was not used to int erpret this result as normal/abnormal . [facility]anoDbyhajfAVMEQTWDYA3664-47-78 09:47:00 Test Item Value Reference Range Interpretation Comments Segs (test code = Segs) 76.9 45.0-75.0 H [facility]anoFhiwaubTNLJDBOFSY8260-17-90 09:47:00 Test Item Value Reference Range Interpretation Comments Lymphocytes (test code = Lymphocytes) 15.9 20.0-40.0 L [facility]anoGaagqxiDLUDFAKZVD3991-00-66 09:47:00 Test Item Value Reference Range Interpretation Comments Monocytes (test code = Monocytes) 6.3 2.0-12.0 N [facility]anoAhgnzptQBUFZBPLNQ6107-26-38 09:47:00 Test Item Value Reference Range Interpretation Comments MCV (test code = MCV) 82.8 81.0-99.0 N [facility]anoEyncsiiIKTDFEPIJG8010-38-83 09:47:00 Test Item Value Reference Range Interpretation Comments Hct (test code = Hct) 39.7 36.0-48.0 N [facility]anoJoemgunCKTXOUMLXI4245-74-78 09:47:00 Test Item Value Reference Range Interpretation Comments MCH (test code = MCH) 29.1 pg 27.0-31.0 N [facility] PlanoDkuzdecWDGFEABIMK7394-16-28 09:47:00 Test Item Value Reference Range Interpretation Comments Hgb (test code = Hgb) 14.0 12.0-16.0 N [facility]anoHoiddfoVIMDVVMIZX3588-69-85 09:47:00 Test Item Value Reference Range Interpretation Comments MCHC (test code = MCHC) 35.2 32.0-36.0 N [facility]anoVnfkexlHAZFHBHBGY0754-23-39 09:47:00 Test Item Value Reference Range Interpretation Comments RDW (test code = RDW) 13.9 11.5-14.5 N [facility]anoAfxauzaPFGNRQXPNB4946-28-99 09:47:00 Test Item Value Reference Range Interpretation Comments Platelet (test code = Platelet) 160 133-450 N [facility] PlanoPrlejutUQDVYVAHWH7528-76-75 09:47:00 Test Item Value Reference Range Interpretation Comments MPV (test code = MPV) 11.9 7.4-10.4 [facility] [place]ulrpumIWXZPJLVOM1878-28-81 09:47:00 Test Item Value Reference Range Interpretation Comments WBC (test code = WBC) 7.7 3.7-10.4 N [facility] [place]IlwgtxzHJUQYGESSA2934-87-08 09:47:00 Test Item Value Reference Range Interpretation Comments RBC (test code = RBC) 4.80 4.20-5.40 N [facility]NgrdfjnURUZXQXWP1488-88-28 09:47:00 Test Item Value Reference Range Interpretation Comments Phosphorus (test code = Phosphorus) 2.5 2.5-4.5 N [facility] AustinZgvvprxZSNKDLRGU5050-19-37 09:47:00 Test Item Value Reference Range Interpretation Comments Glucose Lvl (test code = Glucose Lvl) 201 [facility] AustinHjhmqhnFISSMXQWO6790-48-56 09:47:00 Test Item Value Reference Range Interpretation Comments BUN (test code = BUN) 7 7-22 N [facility] AustinWceohvjSLAOKPQBC4288-66-05 09:47:00 Test Item Value Reference Range Interpretation Comments CO2 (test code = CO2) 19 24-32 L [facility] AustinGtigstdXHMPSEPTW2625-04-67 09:47:00 Test Item Value Reference Range Interpretation Comments Creatinine Lvl (test code = Creatinine 0.3 0.5-1.4 L Lvl) [facility] AustinKzvdwoaESOKBENVL2361-69-27 09:47:00 Test Item Value Reference Range Interpretation Comments Sodium Lvl (test code = Sodium Lvl) 137 135-145 N [facility] AustinSozrldpUERTBTVUR3733-04-13 09:47:00 Test Item Value Reference Range Interpretation Comments Chloride Lvl (test code = Chloride Lvl) 103 95-109 N [facility] AustinLkdpetkXBEMIMEUQ3126-90-05 09:47:00 Test Item Value Reference Range Interpretation Comments Potassium Lvl (test code = Potassium 3.6 3.5-5.1 N Lvl) [facility] AustinIletfbbRLLUBZYEB4853-33-69 09:47:00 Test Item Value Reference Range Interpretation Comments Calcium Lvl (test code = Calcium Lvl) 7.9 8.5-10.5 L [facility] AustinYuiyqtdONRNQMZFI4499-76-00 09:47:00 Test Item Value Reference Range Interpretation Comments AGAP (test code = AGAP) 18.6 10.0-20.0 N [facility] AustinXokuwryLZFRBSHFX5377-32-91 09:47:00 Test Item Value Reference Range Interpretation Comments Magnesium Lvl (test code = Magnesium 1.6 1.8-2.4 L Lvl) [facility] [place]anoWbrmzflGKAOLJJBRU6783-51-05 09:47:00 Test Item Value Reference Range Interpretation Comments Basophils # (test code 0.0 See_Comment N [Aut omated message] The = Basophils #) system which generated this result tra nsmitted reference range : <=0.2. The reference r leo was not used to int erpret this result as normal/abnormal . [facility] [place]anoAacohyxWQTVFLPGOC8161-11-04 09:47:00 Test Item Value Reference Range Interpretation Comments Eosinophils (test code = 0.4 See_Comment N [A utomated message] The Eosinophils) system which ge nerated this result tra nsmitted reference range : <=4.0. The reference r leo was not used to int erpret this result as normal/abnormal . [facility] [place]anoAxlurrwBKRRWBGKVZ8475-06-76 09:47:00 Test Item Value Reference Range Interpretation Comments Basophils (test code = 0.5 See_Comment N [Aut omated message] The Basophils) system which ge nerated this result tra nsmitted reference range : <=1.0. The reference r leo was not used to int erpret this result as normal/abnormal . [facility] [place]anoQdsmrhuOKTMHBAOXT3503-81-64 09:47:00 Test Item Value Reference Range Interpretation Comments Segs-Bands # (test code = Segs-Bands #) 5.9 1.5-8.1 N [facility] [place]XqsyvcfHCXSMQLMKT8130-02-28 09:47:00 Test Item Value Reference Range Interpretation Comments Lymphocytes # (test code = Lymphocytes 1.2 1.0-5.5 N #) [facility] [place]anoYpidpavDZLXKAZWQN6674-24-09 09:47:00 Test Item Value Reference Range Interpretation Comments Monocytes # (test code 0.5 See_Comment N [Aut omated message] The = Monocytes #) system which generated this result tra nsmitted reference range : <=0.8. The reference r leo was not used to int erpret this result as normal/abnormal . [facility] [place]anoUgrsafkGUEWEZBODR0411-33-98 09:47:00 Test Item Value Reference Range Interpretation Comments Eosinophils # (test code 0.0 See_Comment N [A utomated message] The = Eosinophils #) system whic h generated this result tra nsmitted reference range : <=0.5. The reference r leo was not used to int erpret this result as normal/abnormal . [facility] [place]anoAfqoyeuTQUGQPVNZQ3127-08-10 09:47:00 Test Item Value Reference Range Interpretation Comments Segs (test code = Segs) 76.9 45.0-75.0 H [facility] [place]anoGkcodskLDHHFQZKQA8809-78-39 09:47:00 Test Item Value Reference Range Interpretation Comments Lymphocytes (test code = Lymphocytes) 15.9 20.0-40.0 L [facility] [place]anoOqpwmxiEFCFETAQJT4995-44-94 09:47:00 Test Item Value Reference Range Interpretation Comments Monocytes (test code = Monocytes) 6.3 2.0-12.0 N [facility] [place]anoNsdlbanKVBNDLYYQI8265-66-92 09:47:00 Test Item Value Reference Range Interpretation Comments MCV (test code = MCV) 82.8 81.0-99.0 N [facility] [place]EewuxwwNCLPUIQHXY3008-45-52 09:47:00 Test Item Value Reference Range Interpretation Comments Hct (test code = Hct) 39.7 36.0-48.0 N [facility] [place]GlyuhndLWCKRXMVES1779-42-16 09:47:00 Test Item Value Reference Range Interpretation Comments MCH (test code = MCH) 29.1 pg 27.0-31.0 N [facility] [place]anoRnlunbmFXZYERPNFN4776-77-13 09:47:00 Test Item Value Reference Range Interpretation Comments Hgb (test code = Hgb) 14.0 12.0-16.0 N [facility] [place]anoBhkfeheOMJQAGHKSC2045-25-35 09:47:00 Test Item Value Reference Range Interpretation Comments MCHC (test code = MCHC) 35.2 32.0-36.0 N [facility] [place]MthywwyLZIYVVEUPV5990-52-02 09:47:00 Test Item Value Reference Range Interpretation Comments RDW (test code = RDW) 13.9 11.5-14.5 N [facility] [place]JfnicjhSLFWMFBORC5664-30-11 09:47:00 Test Item Value Reference Range Interpretation Comments Platelet (test code = Platelet) 160 133-450 N [facility] [place]KtnoqqlSJYNNWBLQU2272-55-48 09:47:00 Test Item Value Reference Range Interpretation Comments MPV (test code = MPV) 11.9 7.4-10.4 H [facility] [place]anoWtgfgcuDUIBQFAFVW0204-66-85 09:47:00 Test Item Value Reference Range Interpretation Comments WBC (test code = WBC) 7.7 3.7-10.4 N [facility] [place]GpglkmeZQDJGIEEHW9445-72-07 09:47:00 Test Item Value Reference Range Interpretation Comments RBC (test code = RBC) 4.80 4.20-5.40 N [facility] AustinVvzkzjaUHNVFMICQ0871-70-29 09:47:00 Test Item Value Reference Range Interpretation Comments Phosphorus (test code = Phosphorus) 2.5 2.5-4.5 N [facility] AustinFnnuizwEEOYDYOUK0259-26-09 09:47:00 Test Item Value Reference Range Interpretation Comments Glucose Lvl (test code = Glucose Lvl) 201 [facility] AustinXllrsbdAMNZRXAUO1452-13-69 09:47:00 Test Item Value Reference Range Interpretation Comments BUN (test code = BUN) 7 7-22 N [facility] AustinDsekxzxBFRPGSLPA5745-31-12 09:47:00 Test Item Value Reference Range Interpretation Comments CO2 (test code = CO2) 19 24-32 L [facility] AustinMitduwtNYKSWUABZ3815-49-78 09:47:00 Test Item Value Reference Range Interpretation Comments Creatinine Lvl (test code = Creatinine 0.3 0.5-1.4 L Lvl) [facility] AustinCcldirkINCHXOVYZ6001-12-43 09:47:00 Test Item Value Reference Range Interpretation Comments Sodium Lvl (test code = Sodium Lvl) 137 135-145 N [facility] AustinKarftdzIUYXIWGZQ0576-06-43 09:47:00 Test Item Value Reference Range Interpretation Comments Chloride Lvl (test code = Chloride Lvl) 103 95-109 N [facility] AustinHcvzobdKURKHGHLO9857-94-93 09:47:00 Test Item Value Reference Range Interpretation Comments Potassium Lvl (test code = Potassium 3.6 3.5-5.1 N Lvl) [facility] AustinAeqzppwYAEFNIKHM8538-47-72 09:47:00 Test Item Value Reference Range Interpretation Comments Calcium Lvl (test code = Calcium Lvl) 7.9 8.5-10.5 L [facility] AustinZbptogzRHOAKYKPC3457-49-35 09:47:00 Test Item Value Reference Range Interpretation Comments AGAP (test code = AGAP) 18.6 10.0-20.0 N [facility] AustinPyggvorSBHWOXQSM5455-26-98 09:47:00 Test Item Value Reference Range Interpretation Comments Magnesium Lvl (test code = Magnesium 1.6 1.8-2.4 L Lvl) [facility]ndTBUAVSWBOC3323[facility] 09:47:00 Test Item Value Reference Range Interpretation Comments Basophils # (test code 0.0 See_Comment N [Aut omated message] The = Basophils #) system which generated this result tra nsmitted reference range : <=0.2. The reference r leo was not used to int erpret this result as normal/abnormal . [facility] [place]anoAwastcfELMPSWCICP2258-55-26 09:47:00 Test Item Value Reference Range Interpretation Comments Eosinophils (test code = 0.4 See_Comment N [A utomated message] The Eosinophils) system which ge nerated this result tra nsmitted reference range : <=4.0. The reference r leo was not used to int erpret this result as normal/abnormal . [facility] [place]anoRwrccjkFPYCWCFVQW2249-70-99 09:47:00 Test Item Value Reference Range Interpretation Comments Basophils (test code = 0.5 See_Comment N [Aut omated message] The Basophils) system which ge nerated this result tra nsmitted reference range : <=1.0. The reference r leo was not used to int erpret this result as normal/abnormal . [facility] [place]anoTtezcejGNCVMPYDUM1541-45-74 09:47:00 Test Item Value Reference Range Interpretation Comments Segs-Bands # (test code = Segs-Bands #) 5.9 1.5-8.1 N [facility] [place]XyewspdWETTEXOZQQ2945-97-40 09:47:00 Test Item Value Reference Range Interpretation Comments Lymphocytes # (test code = Lymphocytes 1.2 1.0-5.5 N #) [facility] [place]TenwqzhKTDIHIBPFZ5332-27-10 09:47:00 Test Item Value Reference Range Interpretation Comments Monocytes # (test code 0.5 See_Comment N [Aut omated message] The = Monocytes #) system which generated this result tra nsmitted reference range : <=0.8. The reference r leo was not used to int erpret this result as normal/abnormal . [facility] [place]anoQzcvexaGLCGEROXYJ3589-52-47 09:47:00 Test Item Value Reference Range Interpretation Comments Eosinophils # (test code 0.0 See_Comment N [A utomated message] The = Eosinophils #) system whic h generated this result tra nsmitted reference range : <=0.5. The reference r leo was not used to int erpret this result as normal/abnormal . [facility] [place]anoDioobqwDWMZNEHIBQ6726-98-02 09:47:00 Test Item Value Reference Range Interpretation Comments Segs (test code = Segs) 76.9 45.0-75.0 H [facility] [place]anoQyjahxcZCFIFOVDXC9550-00-47 09:47:00 Test Item Value Reference Range Interpretation Comments Lymphocytes (test code = Lymphocytes) 15.9 20.0-40.0 L [facility] [place]AiuaootXNEIALUXXL0886-61-36 09:47:00 Test Item Value Reference Range Interpretation Comments Monocytes (test code = Monocytes) 6.3 2.0-12.0 N [facility] [place]RxjyppxVRVNDADJCX2891-10-88 09:47:00 Test Item Value Reference Range Interpretation Comments MCV (test code = MCV) 82.8 81.0-99.0 N [facility] [place]anoGbfiepeCJLEMMBDXN8893-76-59 09:47:00 Test Item Value Reference Range Interpretation Comments Hct (test code = Hct) 39.7 36.0-48.0 N [facility] [place]anoZihcyfmVJUBGNDIDR9462-45-46 09:47:00 Test Item Value Reference Range Interpretation Comments MCH (test code = MCH) 29.1 pg 27.0-31.0 N [facility] [place]KcmbnpqSRQNJTFUNK3854-06-04 09:47:00 Test Item Value Reference Range Interpretation Comments Hgb (test code = Hgb) 14.0 12.0-16.0 N [facility] [place]anoZmczrdvYNXFKFGPRI3507-53-29 09:47:00 Test Item Value Reference Range Interpretation Comments MCHC (test code = MCHC) 35.2 32.0-36.0 N [facility] [place]anoLztfertKMZBGFKPEU4361-06-74 09:47:00 Test Item Value Reference Range Interpretation Comments RDW (test code = RDW) 13.9 11.5-14.5 N [facility] [place]VkrhbauPGQYRVIUWE6211-79-09 09:47:00 Test Item Value Reference Range Interpretation Comments Platelet (test code = Platelet) 160 133-450 N [facility] [place]anoGdezavcMVUNFLQWRT0028-69-71 09:47:00 Test Item Value Reference Range Interpretation Comments MPV (test code = MPV) 11.9 7.4-10.4 H [facility] [place]anoWloviloUQUAFUSQGQ1834-53-03 09:47:00 Test Item Value Reference Range Interpretation Comments WBC (test code = WBC) 7.7 3.7-10.4 N [facility] [place]anoIfcwikkTQEWGPXSVP9300-58-45 09:47:00 Test Item Value Reference Range Interpretation Comments RBC (test code = RBC) 4.80 4.20-5.40 N [facility] AustinCtahoxqACHFCAVJL2936-31-92 09:47:00 Test Item Value Reference Range Interpretation Comments Phosphorus (test code = Phosphorus) 2.5 2.5-4.5 N [facility] AustinGuulcmhGYHTEPWPN1935-63-94 09:47:00 Test Item Value Reference Range Interpretation Comments Glucose Lvl (test code = Glucose Lvl) 201 [facility] AustinDjwamdeLPUHMNJOU2973-51-04 09:47:00 Test Item Value Reference Range Interpretation Comments BUN (test code = BUN) 7 7-22 N [facility] AustinMykcblvGVEAROUBZ9636-82-10 09:47:00 Test Item Value Reference Range Interpretation Comments CO2 (test code = CO2) 19 24-32 L [facility] AustinMpvrxvmRWAYYVTPR8075-05-08 09:47:00 Test Item Value Reference Range Interpretation Comments Creatinine Lvl (test code = Creatinine 0.3 0.5-1.4 L Lvl) [facility] AustinElhmefqNGFJXPJXJ2495-02-15 09:47:00 Test Item Value Reference Range Interpretation Comments Sodium Lvl (test code = Sodium Lvl) 137 135-145 N [facility] AustinWoprftfKDYUPLYIK6637-25-05 09:47:00 Test Item Value Reference Range Interpretation Comments Chloride Lvl (test code = Chloride Lvl) 103 95-109 N [facility] AustinJyocahzBNELENOWN4805-24-65 09:47:00 Test Item Value Reference Range Interpretation Comments Potassium Lvl (test code = Potassium 3.6 3.5-5.1 N Lvl) [facility] AustinArcxxokLIUOXCSWG8606-21-18 09:47:00 Test Item Value Reference Range Interpretation Comments Calcium Lvl (test code = Calcium Lvl) 7.9 8.5-10.5 L [facility] AustinUgghbhoMLZRORXUH7864-59-79 09:47:00 Test Item Value Reference Range Interpretation Comments AGAP (test code = AGAP) 18.6 10.0-20.0 N [facility] AustinOyqjloeKNHGOHLAG9203-79-83 09:47:00 Test Item Value Reference Range Interpretation Comments Magnesium Lvl (test code = Magnesium 1.6 1.8-2.4 L Lvl) [facility] [place]anoYiikmnnTMNHTLCFTS2191-93-21 09:47:00 Test Item Value Reference Range Interpretation Comments Basophils # (test code 0.0 See_Comment N [Aut omated message] The = Basophils #) system which generated this result tra nsmitted reference range : <=0.2. The reference r leo was not used to int erpret this result as normal/abnormal . [facility] [place]anoQuzvfopDCQVOHTYDH6327-49-57 09:47:00 Test Item Value Reference Range Interpretation Comments Eosinophils (test code = 0.4 See_Comment N [A utomated message] The Eosinophils) system which ge nerated this result tra nsmitted reference range : <=4.0. The reference r leo was not used to int erpret this result as normal/abnormal . [facility] [place]anoJcwbaaiYYJPIZQGMB1323-81-86 09:47:00 Test Item Value Reference Range Interpretation Comments Basophils (test code = 0.5 See_Comment N [Aut omated message] The Basophils) system which ge nerated this result tra nsmitted reference range : <=1.0. The reference r leo was not used to int erpret this result as normal/abnormal . [facility] [place]anoNkqtvoiIJKAPFTEWC1533-72-92 09:47:00 Test Item Value Reference Range Interpretation Comments Segs-Bands # (test code = Segs-Bands #) 5.9 1.5-8.1 N [facility] [place]anoBqlfmayZHWOERHCHR3540-16-37 09:47:00 Test Item Value Reference Range Interpretation Comments Lymphocytes # (test code = Lymphocytes 1.2 1.0-5.5 N #) [facility] [place]anoEqxoabrEMRDZONBKG2147-39-29 09:47:00 Test Item Value Reference Range Interpretation Comments Monocytes # (test code 0.5 See_Comment N [Aut omated message] The = Monocytes #) system which generated this result tra nsmitted reference range : <=0.8. The reference r leo was not used to int erpret this result as normal/abnormal . [facility] [place]anoBtcyqgaGSGZOPODVV5352-63-71 09:47:00 Test Item Value Reference Range Interpretation Comments Eosinophils # (test code 0.0 See_Comment N [A utomated message] The = Eosinophils #) system whic h generated this result tra nsmitted reference range : <=0.5. The reference r leo was not used to int erpret this result as normal/abnormal . [facility] [place]anoMxbzpkcDKCCSXNCIB0605-85-14 09:47:00 Test Item Value Reference Range Interpretation Comments Segs (test code = Segs) 76.9 45.0-75.0 H [facility] [place]anoWjplvypDLIAZOVLDE3847-98-71 09:47:00 Test Item Value Reference Range Interpretation Comments Lymphocytes (test code = Lymphocytes) 15.9 20.0-40.0 L [facility] [place]anoAixsjgsOJTOPTZWPG4350-98-40 09:47:00 Test Item Value Reference Range Interpretation Comments Monocytes (test code = Monocytes) 6.3 2.0-12.0 N [facility] [place]anoJtlqdpyYJHBUITLYZ9432-16-48 09:47:00 Test Item Value Reference Range Interpretation Comments MCV (test code = MCV) 82.8 81.0-99.0 N [facility] [place]anoAkptxyxHMLHNTVOSZ5897-81-17 09:47:00 Test Item Value Reference Range Interpretation Comments Hct (test code = Hct) 39.7 36.0-48.0 N [facility] [place]anoJwbffoyFPBXOOWBIS7869-71-66 09:47:00 Test Item Value Reference Range Interpretation Comments MCH (test code = MCH) 29.1 pg 27.0-31.0 N [facility] [place]anoXqjtzuaKOMWDPSDKM4085-10-00 09:47:00 Test Item Value Reference Range Interpretation Comments Hgb (test code = Hgb) 14.0 12.0-16.0 N [facility] [place]anoGryurykDGYPYDFTCJ1479-37-83 09:47:00 Test Item Value Reference Range Interpretation Comments MCHC (test code = MCHC) 35.2 32.0-36.0 N [facility] [place]anoMdhtwciWIIYJKVOBL6637-16-99 09:47:00 Test Item Value Reference Range Interpretation Comments RDW (test code = RDW) 13.9 11.5-14.5 N [facility] [place]anoAoztyhqEQDQIDQOCD6606-30-34 09:47:00 Test Item Value Reference Range Interpretation Comments Platelet (test code = Platelet) 160 133-450 N [facility] [place]anoCearohjCKDUBFTAZV5005-33-50 09:47:00 Test Item Value Reference Range Interpretation Comments MPV (test code = MPV) 11.9 7.4-10.4 H [facility] [place]anoLbpnkxtQLRHHGQCXM1772-17-71 09:47:00 Test Item Value Reference Range Interpretation Comments WBC (test code = WBC) 7.7 3.7-10.4 N [facility] [place]XwmrkqlILOKVOTNPA6927-77-96 09:47:00 Test Item Value Reference Range Interpretation Comments RBC (test code = RBC) 4.80 4.20-5.40 N [facility] AustinTmlpqqtAVVGIJEQI9292-17-58 10:28:00 Test Item Value Reference Range Interpretation Comments Phosphorus (test code = Phosphorus) 2.6 2.5-4.5 N [facility] AustinNwdpbygSEDYNGLOT6005-82-91 10:28:00 Test Item Value Reference Range Interpretation Comments Magnesium Lvl (test code = Magnesium 1.8 1.8-2.4 N Lvl) [facility] AustinEndvqezJZFGAIVDH5459-10-45 10:28:00 Test Item Value Reference Range Interpretation Comments Potassium Lvl (test code = Potassium 3.7 3.5-5.1 N Lvl) [facility] AustinBvohdzsASLJRXNLS1279-46-16 10:28:00 Test Item Value Reference Range Interpretation Comments Sodium Lvl (test code = Sodium Lvl) 137 135-145 N [facility] AustinLxutsptOQRDYWGAU3943-82-37 10:28:00 Test Item Value Reference Range Interpretation Comments Creatinine Lvl (test code = Creatinine 0.6 0.5-1.4 N Lvl) [facility] AustinAuanosePTWFIANEI2418-80-20 10:28:00 Test Item Value Reference Range Interpretation Comments BUN (test code = BUN) 16 7-22 N [facility] AustinWkwlvcfUUSLMNCXM5269-91-31 10:28:00 Test Item Value Reference Range Interpretation Comments Glucose Lvl (test code = Glucose Lvl) 200 [facility] AustinNrxqpdsTRZVTSEXJ6731-23-44 10:28:00 Test Item Value Reference Range Interpretation Comments Calcium Lvl (test code = Calcium Lvl) 8.3 8.5-10.5 L [facility] AustinRjuhlseUBTFRGCNX7946-55-82 10:28:00 Test Item Value Reference Range Interpretation Comments AGAP (test code = AGAP) 19.7 10.0-20.0 N [facility] AustinQxbcozcMDMRAYVQJ1530-84-06 10:28:00 Test Item Value Reference Range Interpretation Comments Chloride Lvl (test code = Chloride Lvl) 99 95-109 N [facility] AustinSpelmorTGLAMJIRZ7895-33-98 10:28:00 Test Item Value Reference Range Interpretation Comments CO2 (test code = CO2) 22 24-32 L [facility] [place]WsfqwdqDEFEXKIQBE2770-05-57 10:28:00 Test Item Value Reference Range Interpretation Comments Platelet (test code = Platelet) 172 133-450 N [facility] [place]anoWrnwaebWSMBGWZFBP7050-52-47 10:28:00 Test Item Value Reference Range Interpretation Comments MPV (test code = MPV) 12.0 7.4-10.4 H [facility] [place]anoQnumixfUICPQELTDH8146-93-21 10:28:00 Test Item Value Reference Range Interpretation Comments WBC (test code = WBC) 7.3 3.7-10.4 N [facility] [place]anoKqzotseYBDOSPTMWI6030-22-40 10:28:00 Test Item Value Reference Range Interpretation Comments RDW (test code = RDW) 14.6 11.5-14.5 H [facility] [place]anoSsuptzeMBEVUGHSLF0042-03-22 10:28:00 Test Item Value Reference Range Interpretation Comments MCHC (test code = MCHC) 35.0 32.0-36.0 N [facility] [place]anoQcxkdpnYHWGBINUQC4247-53-91 10:28:00 Test Item Value Reference Range Interpretation Comments RBC (test code = RBC) 4.54 4.20-5.40 N [facility] [place]anoBddrgvyQHBIAKNFML9051-49-77 10:28:00 Test Item Value Reference Range Interpretation Comments Hct (test code = Hct) 37.6 36.0-48.0 N [facility] [place]anoEeqrnlhGVBWYJQFYQ6446-83-74 10:28:00 Test Item Value Reference Range Interpretation Comments MCV (test code = MCV) 82.9 81.0-99.0 N [facility] [place]anoTljsynaVEACWTTTAD5176-94-35 10:28:00 Test Item Value Reference Range Interpretation Comments MCH (test code = MCH) 29.0 pg 27.0-31.0 N [facility] [place]anoJyqneuqXHPPXBLLCL5822-20-00 10:28:00 Test Item Value Reference Range Interpretation Comments Hgb (test code = Hgb) 13.2 12.0-16.0 N [facility] [place]anoMtllbwcRFSPRTBXIA3480-90-09 10:28:00 Test Item Value Reference Range Interpretation Comments Elliptocyte (test code = Slight A Elliptocyte) *ABN*(08/21/2011 04:28:00) [facility]anoRbmzvifTEKFTTSPYN2987-53-65 10:28:00 Test Item Value Reference Range Interpretation Comments Polychrom (test code = Slight (08/21/2011 N Polychrom) 04:28:00) [facility] [place]anoWsvstlpJWXKDLNFEX4840-79-11 10:28:00 Test Item Value Reference Range Interpretation Comments Basophils # (test code 0.0 See_Comment N [Aut omated message] The = Basophils #) system which generated this result tra nsmitted reference range : <=0.2. The reference r leo was not used to int erpret this result as normal/abnormal . [facility] [place]anoIaoatocXAYGLYZECD3453-79-02 10:28:00 Test Item Value Reference Range Interpretation Comments Hypochrom (test code = Slight (08/21/2011 N Hypochrom) 04:28:00) [facility] [place]anoNezaimsILIMMKMJNJ2334-30-12 10:28:00 Test Item Value Reference Range Interpretation Comments Monocytes # (test code 0.6 See_Comment N [Aut omated message] The = Monocytes #) system which generated this result tra nsmitted reference range : <=0.8. The reference r leo was not used to int erpret this result as normal/abnormal . [facility] [place]anoNjollggOKCTYPIHMH6165-28-69 10:28:00 Test Item Value Reference Range Interpretation Comments Eosinophils # (test code 0.0 See_Comment N [A utomated message] The = Eosinophils #) system whic h generated this result tra nsmitted reference range : <=0.5. The reference r leo was not used to int erpret this result as normal/abnormal . [facility]LqbonzfPKVZJPOIVS8141-73-05 10:28:00 Test Item Value Reference Range Interpretation Comments Segs-Bands # (test code = Segs-Bands #) 5.3 1.5-8.1 N [facility]anoStcrfqjHMMPNXFYEL6377-12-13 10:28:00 Test Item Value Reference Range Interpretation Comments Lymphocytes # (test code = Lymphocytes 1.3 1.0-5.5 N #) [facility]anoSmgjoksYNSMLANVDL2515-62-79 10:28:00 Test Item Value Reference Range Interpretation Comments Basophils (test code = 0.5 See_Comment N [Aut omated message] The Basophils) system which ge nerated this result tra nsmitted reference range : <=1.0. The reference r leo was not used to int erpret this result as normal/abnormal . [facility]anoIrlauhgBSVRRDSCRS2042-62-64 10:28:00 Test Item Value Reference Range Interpretation Comments Monocytes (test code = Monocytes) 8.5 2.0-12.0 N [facility]anoZnlmyvgXNKGLCCTFF7844-43-68 10:28:00 Test Item Value Reference Range Interpretation Comments Eosinophils (test code = 0.3 See_Comment N [A utomated message] The Eosinophils) system which ge nerated this result tra nsmitted reference range : <=4.0. The reference r leo was not used to int erpret this result as normal/abnormal . [facility]anoGetizgtHVRLSWJQLQ9148-16-88 10:28:00 Test Item Value Reference Range Interpretation Comments Lymphocytes (test code = Lymphocytes) 17.3 20.0-40.0 L [facility]anoJluljzmQHGWCQCVUN6731-58-26 10:28:00 Test Item Value Reference Range Interpretation Comments Segs (test code = Segs) 73.4 45.0-75.0 N [facility] AustinVkuxbggOQVRKOBPV7982-12-82 10:28:00 Test Item Value Reference Range Interpretation Comments Phosphorus (test code = Phosphorus) 2.6 2.5-4.5 N [facility] AustinMturemtWYBQANQIC2044-75-51 10:28:00 Test Item Value Reference Range Interpretation Comments Magnesium Lvl (test code = Magnesium 1.8 1.8-2.4 N Lvl) [facility] AustinEqeggwhFRWVXLCGQ0016-96-21 10:28:00 Test Item Value Reference Range Interpretation Comments Potassium Lvl (test code = Potassium 3.7 3.5-5.1 N Lvl) [facility] AustinNcsgqfcHRACGOGHP3329-65-58 10:28:00 Test Item Value Reference Range Interpretation Comments Sodium Lvl (test code = Sodium Lvl) 137 135-145 N [facility] AustinFngcajiSATHUOHFW3350-42-68 10:28:00 Test Item Value Reference Range Interpretation Comments Creatinine Lvl (test code = Creatinine 0.6 0.5-1.4 N Lvl) [facility] AustinXugmiyhDTNVNXSIM3225-46-92 10:28:00 Test Item Value Reference Range Interpretation Comments BUN (test code = BUN) 16 7-22 N [facility] AustinJpriexsPMXKHAJHA6486-45-36 10:28:00 Test Item Value Reference Range Interpretation Comments Glucose Lvl (test code = Glucose Lvl) 200 [facility] AustinDroenqnLNBDDOEKU9210-23-60 10:28:00 Test Item Value Reference Range Interpretation Comments Calcium Lvl (test code = Calcium Lvl) 8.3 8.5-10.5 L [facility] AustinTjajrmzNSUIYBYRE0644-85-06 10:28:00 Test Item Value Reference Range Interpretation Comments AGAP (test code = AGAP) 19.7 10.0-20.0 N [facility] AustinEmqubcfDKDSDUMFZ1640-37-09 10:28:00 Test Item Value Reference Range Interpretation Comments Chloride Lvl (test code = Chloride Lvl) 99 95-109 N [facility] AustinOzewzruABARAPNNJ2006-03-40 10:28:00 Test Item Value Reference Range Interpretation Comments CO2 (test code = CO2) 22 24-32 L [facility]anoRixpiqgJXZSRLADVN0580-39-83 10:28:00 Test Item Value Reference Range Interpretation Comments Platelet (test code = Platelet) 172 133-450 N [facility]anoXaglaurCLADTCFEWU4574-67-77 10:28:00 Test Item Value Reference Range Interpretation Comments MPV (test code = MPV) 12.0 7.4-10.4 H [facility]anoWkglaeiABKGWZXYXX5730-55-49 10:28:00 Test Item Value Reference Range Interpretation Comments WBC (test code = WBC) 7.3 3.7-10.4 N [facility]anoTvtfpqkREJCRQIPSE5319-84-20 10:28:00 Test Item Value Reference Range Interpretation Comments RDW (test code = RDW) 14.6 11.5-14.5 H [facility]anoCmxyojeZMAOZFQJAR6921-18-93 10:28:00 Test Item Value Reference Range Interpretation Comments MCHC (test code = MCHC) 35.0 32.0-36.0 N [facility]anoWbmeioyXYBNMKRBWO6904-45-47 10:28:00 Test Item Value Reference Range Interpretation Comments RBC (test code = RBC) 4.54 4.20-5.40 N [facility]anoCdazmplNRNXPNYLZO9959-46-71 10:28:00 Test Item Value Reference Range Interpretation Comments Hct (test code = Hct) 37.6 36.0-48.0 N [facility]anoTsiqczkEHSAMOTTYK9727-70-07 10:28:00 Test Item Value Reference Range Interpretation Comments MCV (test code = MCV) 82.9 81.0-99.0 N [facility]anoXwlsexiNICTYXXPTL3497-10-75 10:28:00 Test Item Value Reference Range Interpretation Comments MCH (test code = MCH) 29.0 pg 27.0-31.0 N [facility]anoWicdocmMAUCVPRWUB6404-50-80 10:28:00 Test Item Value Reference Range Interpretation Comments Hgb (test code = Hgb) 13.2 12.0-16.0 N [facility]anoWdbuiybBWJALVTLOA0268-56-24 10:28:00 Test Item Value Reference Range Interpretation Comments Elliptocyte (test code = Slight A Elliptocyte) *ABN*(08/21/2011 04:28:00) [facility]anoMjisdeqZSMWWIUYUW2065-69-17 10:28:00 Test Item Value Reference Range Interpretation Comments Polychrom (test code = Slight (08/21/2011 N Polychrom) 04:28:00) [facility]anoIepqhziPKYSUEDTFT2640-11-87 10:28:00 Test Item Value Reference Range Interpretation Comments Basophils # (test code 0.0 See_Comment N [Aut omated message] The = Basophils #) system which generated this result tra nsmitted reference range : <=0.2. The reference r leo was not used to int erpret this result as normal/abnormal . [facility]anoAwwdobvIDPZCWXLHI0248-83-92 10:28:00 Test Item Value Reference Range Interpretation Comments Hypochrom (test code = Slight (08/21/2011 N Hypochrom) 04:28:00) [facility]anoBykkatzZDWCUMTDOM1482-30-19 10:28:00 Test Item Value Reference Range Interpretation Comments Monocytes # (test code 0.6 See_Comment N [Aut omated message] The = Monocytes #) system which generated this result tra nsmitted reference range : <=0.8. The reference r leo was not used to int erpret this result as normal/abnormal . [facility]anoOpwwlfuJFNEHYQGAO1159-67-13 10:28:00 Test Item Value Reference Range Interpretation Comments Eosinophils # (test code 0.0 See_Comment N [A utomated message] The = Eosinophils #) system whic h generated this result tra nsmitted reference range : <=0.5. The reference r leo was not used to int erpret this result as normal/abnormal . [facility]anoAazavlnILOHFIJNEA4480-76-07 10:28:00 Test Item Value Reference Range Interpretation Comments Segs-Bands # (test code = Segs-Bands #) 5.3 1.5-8.1 N [facility]anoMbkzhwgBBSLMTQZXG1782-65-39 10:28:00 Test Item Value Reference Range Interpretation Comments Lymphocytes # (test code = Lymphocytes 1.3 1.0-5.5 N #) [facility]anoMevxkumLEUVTIMYFR1724-66-14 10:28:00 Test Item Value Reference Range Interpretation Comments Basophils (test code = 0.5 See_Comment N [Aut omated message] The Basophils) system which ge nerated this result tra nsmitted reference range : <=1.0. The reference r leo was not used to int erpret this result as normal/abnormal . [facility]anoFwggxocXUIEBPFYOE3888-90-46 10:28:00 Test Item Value Reference Range Interpretation Comments Monocytes (test code = Monocytes) 8.5 2.0-12.0 N [facility]anoFswymszYPSQXMDTLT6749-32-44 10:28:00 Test Item Value Reference Range Interpretation Comments Eosinophils (test code = 0.3 See_Comment N [A utomated message] The Eosinophils) system which ge nerated this result tra nsmitted reference range : <=4.0. The reference r leo was not used to int erpret this result as normal/abnormal . [facility]anoWfnkrypNUMKLRWVSF4270-39-74 10:28:00 Test Item Value Reference Range Interpretation Comments Lymphocytes (test code = Lymphocytes) 17.3 20.0-40.0 L [facility]anoAfbuwvzHVIIQICVPP2384-70-87 10:28:00 Test Item Value Reference Range Interpretation Comments Segs (test code = Segs) 73.4 45.0-75.0 N [facility] AustinPbxvbtkOROMSPUMH1042-00-71 10:28:00 Test Item Value Reference Range Interpretation Comments Phosphorus (test code = Phosphorus) 2.6 2.5-4.5 N [facility] AustinKyypysjCRCVBAHKP6790-04-81 10:28:00 Test Item Value Reference Range Interpretation Comments Magnesium Lvl (test code = Magnesium 1.8 1.8-2.4 N Lvl) [facility] AustinLjbyocfIOMPHUMMU7024-28-11 10:28:00 Test Item Value Reference Range Interpretation Comments Potassium Lvl (test code = Potassium 3.7 3.5-5.1 N Lvl) [facility] AustinLyjqeauJOVDZKFZS2627-34-78 10:28:00 Test Item Value Reference Range Interpretation Comments Sodium Lvl (test code = Sodium Lvl) 137 135-145 N [facility] AustinHydfqzkBBHYOWBVL7684-43-34 10:28:00 Test Item Value Reference Range Interpretation Comments Creatinine Lvl (test code = Creatinine 0.6 0.5-1.4 N Lvl) [facility] AustinJdfrrrpYLDZFRZCU0045-18-19 10:28:00 Test Item Value Reference Range Interpretation Comments BUN (test code = BUN) 16 7-22 N [facility] AustinQbridlrWNRURXTQZ1485-32-20 10:28:00 Test Item Value Reference Range Interpretation Comments Glucose Lvl (test code = Glucose Lvl) 200 [facility] AustinFdsiergXEIONPDJU4237-98-72 10:28:00 Test Item Value Reference Range Interpretation Comments Calcium Lvl (test code = Calcium Lvl) 8.3 8.5-10.5 L [facility] AustinYhsedflQLMSMXTLA3496-92-70 10:28:00 Test Item Value Reference Range Interpretation Comments AGAP (test code = AGAP) 19.7 10.0-20.0 N [facility] AustinWesdnjeOUTMHTKUH9758-00-72 10:28:00 Test Item Value Reference Range Interpretation Comments Chloride Lvl (test code = Chloride Lvl) 99 95-109 N [facility] AustinQfzcmylMOBRXDZOL5575-69-37 10:28:00 Test Item Value Reference Range Interpretation Comments CO2 (test code = CO2) 22 24-32 L [facility]anoYaeeampPRYKIKFCUL3267-15-22 10:28:00 Test Item Value Reference Range Interpretation Comments Platelet (test code = Platelet) 172 133-450 N [facility]anoZrlhnioNEMBFZICAV0554-49-87 10:28:00 Test Item Value Reference Range Interpretation Comments MPV (test code = MPV) 12.0 7.4-10.4 H [facility]anoFuyxlizOKFWNHTBCV4519-80-99 10:28:00 Test Item Value Reference Range Interpretation Comments WBC (test code = WBC) 7.3 3.7-10.4 N [facility]anoNuwqimjYHWABQMLSH3620-30-72 10:28:00 Test Item Value Reference Range Interpretation Comments RDW (test code = RDW) 14.6 11.5-14.5 H [facility]anoEpmiptcNEWPTTJXAC2409-41-36 10:28:00 Test Item Value Reference Range Interpretation Comments MCHC (test code = MCHC) 35.0 32.0-36.0 N [facility]anoAcjcwzmNKOHITHETF1992-66-52 10:28:00 Test Item Value Reference Range Interpretation Comments RBC (test code = RBC) 4.54 4.20-5.40 N [facility]anoWizzgkzLTBUAIQDIZ7743-29-80 10:28:00 Test Item Value Reference Range Interpretation Comments Hct (test code = Hct) 37.6 36.0-48.0 N [facility]anoJyflkgcWPSPZWCOSY4975-47-34 10:28:00 Test Item Value Reference Range Interpretation Comments MCV (test code = MCV) 82.9 81.0-99.0 N [facility]anoDjmjgmpXQTRQKCGND2450-88-81 10:28:00 Test Item Value Reference Range Interpretation Comments MCH (test code = MCH) 29.0 pg 27.0-31.0 N [facility]anoXomzeddLVKEURCGTU7899-62-15 10:28:00 Test Item Value Reference Range Interpretation Comments Hgb (test code = Hgb) 13.2 12.0-16.0 N [facility]anoZvbllyzODUKOSIVFU6679-46-26 10:28:00 Test Item Value Reference Range Interpretation Comments Elliptocyte (test code = Slight A Elliptocyte) *ABN*(08/21/2011 04:28:00) [facility]anoKhmbsgnPNKUOFVTUH8518-10-26 10:28:00 Test Item Value Reference Range Interpretation Comments Polychrom (test code = Slight (08/21/2011 N Polychrom) 04:28:00) [facility]anoFjpvvzaQTRNVCVHNJ9952-85-26 10:28:00 Test Item Value Reference Range Interpretation Comments Basophils # (test code 0.0 See_Comment N [Aut omated message] The = Basophils #) system which generated this result tra nsmitted reference range : <=0.2. The reference r leo was not used to int erpret this result as normal/abnormal . [facility]anoIobspahEVOYVSIUIH2987-58-28 10:28:00 Test Item Value Reference Range Interpretation Comments Hypochrom (test code = Slight (08/21/2011 N Hypochrom) 04:28:00) [facility]anoJgwbwpyNHKTYRQWVD0179-59-02 10:28:00 Test Item Value Reference Range Interpretation Comments Monocytes # (test code 0.6 See_Comment N [Aut omated message] The = Monocytes #) system which generated this result tra nsmitted reference range : <=0.8. The reference r leo was not used to int erpret this result as normal/abnormal . [facility]anoMsnrgodNWUQEJQWNH0258-32-22 10:28:00 Test Item Value Reference Range Interpretation Comments Eosinophils # (test code 0.0 See_Comment N [A utomated message] The = Eosinophils #) system whic h generated this result tra nsmitted reference range : <=0.5. The reference r leo was not used to int erpret this result as normal/abnormal . [facility]anoRuscfmwXADDIEFGHX4211-61-17 10:28:00 Test Item Value Reference Range Interpretation Comments Segs-Bands # (test code = Segs-Bands #) 5.3 1.5-8.1 N [facility]anoXlptyseFHTRWAUMYS3010-30-41 10:28:00 Test Item Value Reference Range Interpretation Comments Lymphocytes # (test code = Lymphocytes 1.3 1.0-5.5 N #) [facility]anoOqumlrwPFIAJBWTNQ2401-22-18 10:28:00 Test Item Value Reference Range Interpretation Comments Basophils (test code = 0.5 See_Comment N [Aut omated message] The Basophils) system which ge nerated this result tra nsmitted reference range : <=1.0. The reference r leo was not used to int erpret this result as normal/abnormal . [facility]anoQiymyggWECQBWWKGK5705-15-78 10:28:00 Test Item Value Reference Range Interpretation Comments Monocytes (test code = Monocytes) 8.5 2.0-12.0 N [facility]anoPojhkdiSCTLAYMMVV7383-51-82 10:28:00 Test Item Value Reference Range Interpretation Comments Eosinophils (test code = 0.3 See_Comment N [A utomated message] The Eosinophils) system which ge nerated this result tra nsmitted reference range : <=4.0. The reference r leo was not used to int erpret this result as normal/abnormal . [facility]anoNddpysjNDQXOAGVHP6703-85-90 10:28:00 Test Item Value Reference Range Interpretation Comments Lymphocytes (test code = Lymphocytes) 17.3 20.0-40.0 L [facility]anoLqearobLWFQLHAFMS8028-07-83 10:28:00 Test Item Value Reference Range Interpretation Comments Segs (test code = Segs) 73.4 45.0-75.0 N [facility] AustinMinkldkQFOCQMMPQ8621-40-89 10:28:00 Test Item Value Reference Range Interpretation Comments Phosphorus (test code = Phosphorus) 2.6 2.5-4.5 N [facility] AustinUjlaztoKZOELKLNF4012-19-44 10:28:00 Test Item Value Reference Range Interpretation Comments Magnesium Lvl (test code = Magnesium 1.8 1.8-2.4 N Lvl) [facility] AustinIfczjvdFAACHQPTB8672-28-97 10:28:00 Test Item Value Reference Range Interpretation Comments Potassium Lvl (test code = Potassium 3.7 3.5-5.1 N Lvl) [facility] AustinAlpwpjePOOBYROQO5639-12-40 10:28:00 Test Item Value Reference Range Interpretation Comments Sodium Lvl (test code = Sodium Lvl) 137 135-145 N [facility] AustinCdolziqFETGLPMBW4516-31-65 10:28:00 Test Item Value Reference Range Interpretation Comments Creatinine Lvl (test code = Creatinine 0.6 0.5-1.4 N Lvl) [facility] AustinBiyuykiPKNRJLBXT8800-97-41 10:28:00 Test Item Value Reference Range Interpretation Comments BUN (test code = BUN) 16 7-22 N [facility] AustinFshfgurVVCMKJWMI1941-52-91 10:28:00 Test Item Value Reference Range Interpretation Comments Glucose Lvl (test code = Glucose Lvl) 200 [facility] AustinGpxkjwdQJFTLTNUZ1715-82-23 10:28:00 Test Item Value Reference Range Interpretation Comments Calcium Lvl (test code = Calcium Lvl) 8.3 8.5-10.5 L [facility] AustinQjmhfavKTFRFJOWQ2302-92-91 10:28:00 Test Item Value Reference Range Interpretation Comments AGAP (test code = AGAP) 19.7 10.0-20.0 N [facility] AustinGftcxpeQJEYUEDFP4069-16-72 10:28:00 Test Item Value Reference Range Interpretation Comments Chloride Lvl (test code = Chloride Lvl) 99 95-109 N [facility] AustinTrypekcCGPCEQMPH3134-34-87 10:28:00 Test Item Value Reference Range Interpretation Comments CO2 (test code = CO2) 22 24-32 L [facility]anoYwiihwnBWOBXJUBWH9679-83-75 10:28:00 Test Item Value Reference Range Interpretation Comments Platelet (test code = Platelet) 172 133-450 N [facility]anoHhmsnbwYPMELCTUIK5563-40-15 10:28:00 Test Item Value Reference Range Interpretation Comments MPV (test code = MPV) 12.0 7.4-10.4 H [facility]anoEsahmxaMTWGDVZBUH8128-78-63 10:28:00 Test Item Value Reference Range Interpretation Comments WBC (test code = WBC) 7.3 3.7-10.4 N [facility]anoGaxoukmLTTMTBUMJV6055-38-38 10:28:00 Test Item Value Reference Range Interpretation Comments RDW (test code = RDW) 14.6 11.5-14.5 H [facility]anoSdgukavVKZMNREFWQ7925-61-05 10:28:00 Test Item Value Reference Range Interpretation Comments MCHC (test code = MCHC) 35.0 32.0-36.0 N [facility]anoHkccyfwUALNYUOSXB3544-07-28 10:28:00 Test Item Value Reference Range Interpretation Comments RBC (test code = RBC) 4.54 4.20-5.40 N [facility] PlanoGlfsoavZIMOOCPXLT6394-68-61 10:28:00 Test Item Value Reference Range Interpretation Comments Hct (test code = Hct) 37.6 36.0-48.0 N [facility]anoLwztsykEWTSPDQYMM8698-48-81 10:28:00 Test Item Value Reference Range Interpretation Comments MCV (test code = MCV) 82.9 81.0-99.0 N [facility]anoKtxrnfiWSAKZYJIZY1371-53-10 10:28:00 Test Item Value Reference Range Interpretation Comments MCH (test code = MCH) 29.0 pg 27.0-31.0 N [facility]anoHlummebEGUXFPUOBU0212-91-78 10:28:00 Test Item Value Reference Range Interpretation Comments Hgb (test code = Hgb) 13.2 12.0-16.0 N [facility]anoPicgapcREVWBGIAGT5142-90-34 10:28:00 Test Item Value Reference Range Interpretation Comments Elliptocyte (test code = Slight A Elliptocyte) *ABN*(08/21/2011 04:28:00) [facility]anoPtxlwahHWOINGGELG7058-41-48 10:28:00 Test Item Value Reference Range Interpretation Comments Polychrom (test code = Slight (08/21/2011 N Polychrom) 04:28:00) [facility]anoUhdujryTMATGWYDKE1979-58-04 10:28:00 Test Item Value Reference Range Interpretation Comments Basophils # (test code 0.0 See_Comment N [Aut omated message] The = Basophils #) system which generated this result tra nsmitted reference range : <=0.2. The reference r leo was not used to int erpret this result as normal/abnormal . [facility]anoTdkskehQHBPBMGJCL3468-55-92 10:28:00 Test Item Value Reference Range Interpretation Comments Hypochrom (test code = Slight (08/21/2011 N Hypochrom) 04:28:00) [facility]anoKeiugrpLSVMFOQPRJ0648-67-81 10:28:00 Test Item Value Reference Range Interpretation Comments Monocytes # (test code 0.6 See_Comment N [Aut omated message] The = Monocytes #) system which generated this result tra nsmitted reference range : <=0.8. The reference r leo was not used to int erpret this result as normal/abnormal . [facility] PlanoZoffbapAUKSQIAFHI0741-71-90 10:28:00 Test Item Value Reference Range Interpretation Comments Eosinophils # (test code 0.0 See_Comment N [A utomated message] The = Eosinophils #) system whic h generated this result tra nsmitted reference range : <=0.5. The reference r leo was not used to int erpret this result as normal/abnormal . [facility]anoKqwshokRNZOOMZFXC4856-66-34 10:28:00 Test Item Value Reference Range Interpretation Comments Segs-Bands # (test code = Segs-Bands #) 5.3 1.5-8.1 N [facility]anoOrfoghwMXFMFLXVOW6017-58-15 10:28:00 Test Item Value Reference Range Interpretation Comments Lymphocytes # (test code = Lymphocytes 1.3 1.0-5.5 N #) [facility]anoWazwhjnUHTIQUCGIE9401-14-43 10:28:00 Test Item Value Reference Range Interpretation Comments Basophils (test code = 0.5 See_Comment N [Aut omated message] The Basophils) system which ge nerated this result tra nsmitted reference range : <=1.0. The reference r leo was not used to int erpret this result as normal/abnormal . [facility]anoJwppafhYFVBOMEYHQ4534-27-18 10:28:00 Test Item Value Reference Range Interpretation Comments Monocytes (test code = Monocytes) 8.5 2.0-12.0 N [facility] PlanoHrmrikcJCJTJZMCOR1962-01-28 10:28:00 Test Item Value Reference Range Interpretation Comments Eosinophils (test code = 0.3 See_Comment N [A utomated message] The Eosinophils) system which ge nerated this result tra nsmitted reference range : <=4.0. The reference r leo was not used to int erpret this result as normal/abnormal . [facility]anoHvqruzsKXJYXKZDKN4731-10-03 10:28:00 Test Item Value Reference Range Interpretation Comments Lymphocytes (test code = Lymphocytes) 17.3 20.0-40.0 [facility]agprqRUTFTESQEV9932-59-38 10:28:00 Test Item Value Reference Range Interpretation Comments Segs (test code = Segs) 73.4 45.0-75.0 N [facility] AustinMeocfgsRPFIYJNPO5333-57-05 10:28:00 Test Item Value Reference Range Interpretation Comments Phosphorus (test code = Phosphorus) 2.6 2.5-4.5 N [facility] AustinEhznecjLABCSQNNO8897-84-62 10:28:00 Test Item Value Reference Range Interpretation Comments Magnesium Lvl (test code = Magnesium 1.8 1.8-2.4 N Lvl) [facility] AustinJsdfneiKNNSSOZQM3605-50-75 10:28:00 Test Item Value Reference Range Interpretation Comments Potassium Lvl (test code = Potassium 3.7 3.5-5.1 N Lvl) [facility] AustinVqxhcodURKXYIWSV9771-40-67 10:28:00 Test Item Value Reference Range Interpretation Comments Sodium Lvl (test code = Sodium Lvl) 137 135-145 N [facility] AustinIioxrikKZBCZEFZD6602-40-55 10:28:00 Test Item Value Reference Range Interpretation Comments Creatinine Lvl (test code = Creatinine 0.6 0.5-1.4 N Lvl) [facility] AustinIvcuybsCKEZCNCPL1978-74-89 10:28:00 Test Item Value Reference Range Interpretation Comments BUN (test code = BUN) 16 7-22 N [facility] AustinDislcjjGOAHYHQJD5283-08-07 10:28:00 Test Item Value Reference Range Interpretation Comments Glucose Lvl (test code = Glucose Lvl) 200 [facility] AustinRovhqlaNDCROBMOL6267-97-89 10:28:00 Test Item Value Reference Range Interpretation Comments Calcium Lvl (test code = Calcium Lvl) 8.3 8.5-10.5 L [facility] AustinCyiblmzVPWZTXYRC6945-25-02 10:28:00 Test Item Value Reference Range Interpretation Comments AGAP (test code = AGAP) 19.7 10.0-20.0 N [facility] AustinQeetnhcAWHMEXXGA1210-63-22 10:28:00 Test Item Value Reference Range Interpretation Comments Chloride Lvl (test code = Chloride Lvl) 99 95-109 N [facility] AustinZzcsbppDXEFHXIER4412-01-41 10:28:00 Test Item Value Reference Range Interpretation Comments CO2 (test code = CO2) 22 24-32 L [facility]KelfqjoNAWCXVOZDU4467-73-63 10:28:00 Test Item Value Reference Range Interpretation Comments Platelet (test code = Platelet) 172 133-450 N [facility]anoPnmkrctZIIQIDCKVN3959-29-45 10:28:00 Test Item Value Reference Range Interpretation Comments MPV (test code = MPV) 12.0 7.4-10.4 H [facility]anoFycniuvEGYWBRYVIJ9880-33-47 10:28:00 Test Item Value Reference Range Interpretation Comments WBC (test code = WBC) 7.3 3.7-10.4 N [facility]anoYxzyhkkLHWRPVWJYP3285-39-65 10:28:00 Test Item Value Reference Range Interpretation Comments RDW (test code = RDW) 14.6 11.5-14.5 H [facility]anoCplmxinNILRWFMQOY3038-89-73 10:28:00 Test Item Value Reference Range Interpretation Comments MCHC (test code = MCHC) 35.0 32.0-36.0 N [facility]anoErwpdkcRDPZZCSOPR4396-08-70 10:28:00 Test Item Value Reference Range Interpretation Comments RBC (test code = RBC) 4.54 4.20-5.40 N [facility]anoZalujgjJPEPKKZCCS8546-40-52 10:28:00 Test Item Value Reference Range Interpretation Comments Hct (test code = Hct) 37.6 36.0-48.0 N [facility]anoDvcepzhTIZSMLFLEY3071-70-34 10:28:00 Test Item Value Reference Range Interpretation Comments MCV (test code = MCV) 82.9 81.0-99.0 N [facility]anoCzvguemMKVLAFQVTX7614-13-45 10:28:00 Test Item Value Reference Range Interpretation Comments MCH (test code = MCH) 29.0 pg 27.0-31.0 N [facility]anoUagiysiTXMYAZEVBB3441-80-01 10:28:00 Test Item Value Reference Range Interpretation Comments Hgb (test code = Hgb) 13.2 12.0-16.0 N [facility]anoFxjhuahDWLKWDQFPS8767-31-89 10:28:00 Test Item Value Reference Range Interpretation Comments Elliptocyte (test code = Slight A Elliptocyte) *ABN*(08/21/2011 04:28:00) [facility]anoQgtsdniWHDOHDBBCK8172-14-32 10:28:00 Test Item Value Reference Range Interpretation Comments Polychrom (test code = Slight (08/21/2011 N Polychrom) 04:28:00) [facility]anoPdictchCBDPCOECWC7539-68-62 10:28:00 Test Item Value Reference Range Interpretation Comments Basophils # (test code 0.0 See_Comment N [Aut omated message] The = Basophils #) system which generated this result tra nsmitted reference range : <=0.2. The reference r leo was not used to int erpret this result as normal/abnormal . [facility]anoNmbgfnoOQJFGVTXAQ4396-70-47 10:28:00 Test Item Value Reference Range Interpretation Comments Hypochrom (test code = Slight (08/21/2011 N Hypochrom) 04:28:00) [facility]anoJpylkjwVDCLISSJAD2899-16-58 10:28:00 Test Item Value Reference Range Interpretation Comments Monocytes # (test code 0.6 See_Comment N [Aut omated message] The = Monocytes #) system which generated this result tra nsmitted reference range : <=0.8. The reference r leo was not used to int erpret this result as normal/abnormal . [facility]anoBqphgifUURGXULVKS5143-91-66 10:28:00 Test Item Value Reference Range Interpretation Comments Eosinophils # (test code 0.0 See_Comment N [A utomated message] The = Eosinophils #) system whic h generated this result tra nsmitted reference range : <=0.5. The reference r leo was not used to int erpret this result as normal/abnormal . [facility]anoUywgdhiXRSFTJNWTP7081-02-02 10:28:00 Test Item Value Reference Range Interpretation Comments Segs-Bands # (test code = Segs-Bands #) 5.3 1.5-8.1 N [facility]anoZwixxaxQOGJPUSZNT3873-86-60 10:28:00 Test Item Value Reference Range Interpretation Comments Lymphocytes # (test code = Lymphocytes 1.3 1.0-5.5 N #) [facility]anoZyvzaipWIROUVRBKX2751-38-88 10:28:00 Test Item Value Reference Range Interpretation Comments Basophils (test code = 0.5 See_Comment N [Aut omated message] The Basophils) system which ge nerated this result tra nsmitted reference range : <=1.0. The reference r leo was not used to int erpret this result as normal/abnormal . [facility]anoWiedlcpVOPPSROBUV7034-30-86 10:28:00 Test Item Value Reference Range Interpretation Comments Monocytes (test code = Monocytes) 8.5 2.0-12.0 N [facility]anoLdemrcyZGYUZCPGWL1449-39-40 10:28:00 Test Item Value Reference Range Interpretation Comments Eosinophils (test code = 0.3 See_Comment N [A utomated message] The Eosinophils) system which ge nerated this result tra nsmitted reference range : <=4.0. The reference r leo was not used to int erpret this result as normal/abnormal . [facility]anoPhqqrauLSLEKQQWLQ2717-88-81 10:28:00 Test Item Value Reference Range Interpretation Comments Lymphocytes (test code = Lymphocytes) 17.3 20.0-40.0 L [facility]anoIcdvyiuKVPGURAVTT8515-49-76 10:28:00 Test Item Value Reference Range Interpretation Comments Segs (test code = Segs) 73.4 45.0-75.0 N [facility] GLUCOSE LGEDWFR6064-80-30 07:47:00 Test Item Value Reference Range Interpretation Comments Comment2 (test code = Comment2) Verify w/Lab [facility] GLUCOSE LRBJNCF4803-95-94 07:47:00 Test Item Value Reference Range Interpretation Comments Comment2 (test code = Comment2) Verify w/Lab [facility] GLUCOSE AJSMJXX8085-04-58 07:47:00 Test Item Value Reference Range Interpretation Comments Comment2 (test code = Comment2) Verify w/Lab [facility] GLUCOSE KZDHIEX2412-84-24 07:47:00 Test Item Value Reference Range Interpretation Comments Comment2 (test code = Comment2) Verify w/Lab [facility] GLUCOSE EUOVJLG3753-30-15 07:47:00 Test Item Value Reference Range Interpretation Comments Comment2 (test code = Comment2) [facility] w/Lab [facility] AustinLkibvyqYGYTNWKVH2487-17-62 21:58:00 Test Item Value Reference Range Interpretation Comments S Preg (test code = S Negative (08/19/2011 N Preg) 15:58:00) [facility] AustinEuureslUZOOXYOJN2718-41-78 21:58:00 Test Item Value Reference Range Interpretation Comments Lipase Lvl (test code = Lipase Lvl) 169 73-393 N [facility] AustinAvzkuuaQQBFMDEUE1315-50-11 21:58:00 Test Item Value Reference Range Interpretation Comments ALT (test code = ALT) 54 See_Comment N [Auto mated message] The system which ge nerated this result transmit rohit reference range : <=65. The reference range was not used to interpr et this result as reji l/abnormal. [facility] AustinQmvmhzrNBCUNHKBE7177-20-78 21:58:00 Test Item Value Reference Range Interpretation Comments Alk Phos (test code = Alk Phos) 110 39-136 N [facility] AustinEtwzyydNNTKBFJJR2873-09-34 21:58:00 Test Item Value Reference Range Interpretation Comments Bili Direct (test code 0.1 See_Comment N [Aut omated message] The = Bili Direct) system which generated this result tra nsmitted reference range : <=0.3. The reference r leo was not used to int erpret this result as reji l/abnormal. [facility] AustinCuxvestTWQZIDPFK1740-12-93 21:58:00 Test Item Value Reference Range Interpretation Comments Bili Total (test code = Bili Total) 0.9 0.2-1.3 N [facility] AustinZbotbwyKTOFRDLHN4506-84-55 21:58:00 Test Item Value Reference Range Interpretation Comments Albumin Lvl (test code = Albumin Lvl) 4.4 3.5-5.0 N [facility] AustinUuypcmeLDNNDHATK9564-51-06 21:58:00 Test Item Value Reference Range Interpretation Comments Total Protein (test code = Total 8.8 6.4-8.4 H Protein) [facility] AustinPrpacmlBIFHIQSGJ1809-28-20 21:58:00 Test Item Value Reference Range Interpretation Comments Bili Indirect (test 0.8 See_Comment N [Automa rohit message] The code = Bili Indirect) system which generated this result tra nsmitted reference range : <=1.0. The reference r leo was not used to int erpret this result as normal/abnormal . [facility] AustinAdgsczoMRVLMMSGG7219-45-75 21:58:00 Test Item Value Reference Range Interpretation Comments AST (test code = AST) 36 See_Comment N [Auto mated message] The system which ge nerated this result transmit rohit reference range : <=37. The reference range was not used to interpr et this result as reji l/abnormal. [facility] AustinUobahvmABEILXBKA2623-58-32 21:58:00 Test Item Value Reference Range Interpretation Comments Globulin (test code = Globulin) 4.4 2.0-4.0 H [facility]LwpcszhEMZNMGDYI5610-95-03 21:58:00 Test Item Value Reference Range Interpretation Comments A/G Ratio (test code = A/G Ratio) 1.0 0.7-1.6 N [facility] CenterUgzdtloCHKMJJZYHF1940-22-35 21:58:00 Test Item Value Reference Range Interpretation Comments UA Bacteria (test code Occasional /HPF N = UA Bacteria) (08/19/2011 15:58:00) [facility] CenterRtddkbwYEFZCWMNFW5379-32-27 21:58:00 Test Item Value Reference Range Interpretation Comments UA RBC (test 3-5 /HPF See_Comment A [Automated mes pastor] code = UA RBC) *ABN*(08/19/2011 The syste m which 15:58:00) generated this result transmitted ref erence range: <=2. The reference range was not used to int erpret this result as normal/abnormal . [facility] CenterNeqijmhAVRIPCSILF8443-27-24 21:58:00 Test Item Value Reference Range Interpretation Comments UA WBC (test code = 3 See_Comment [Automa rohit message] The UA WBC) system which ge nerated this result transmit rohit reference range : <=5. The reference range was not used to interpr et this result as reji l/abnormal. [facility] CenterPinozjmGITHZTXBRA4833-31-70 21:58:00 Test Item Value Reference Range Interpretation Comments UA Mucus (test code = Few /LPF (08/19/2011 N UA Mucus) 15:58:00) [facility] CenterYxmzripKDXUMCMUPG8292-15-03 21:58:00 Test Item Value Reference Range Interpretation Comments UA Amorph Destiny (test Occasional /HPF A code = UA Amorph *ABN*(08/19/2011 Destiny) 15:58:00) [facility] CenterJfjhgusGAIRHJEMDL5401-71-80 21:58:00 Test Item Value Reference Range Interpretation Comments UA Urobilinogen (test code = UA 0.2 0.1-1.0 N Urobilinogen) [facility] CenterBiakluaOYHZQCXDVC6905-23-66 21:58:00 Test Item Value Reference Range Interpretation Comments UA Sq Epi (test code = Rare /LPF (08/19/2011 N UA Sq Epi) 15:58:00) [facility] CenterOwuhzdfFEQKPVAMRW0158-54-11 21:58:00 Test Item Value Reference Range Interpretation Comments Micro? (test code = Performed (08/19/2011 N Micro?) 15:58:00) [facility] TylerCdlnftmBQOXNFINLW7480-04-72 21:58:00 Test Item Value Reference Range Interpretation Comments UA Leuk Est (test Negative (08/19/2011 N code = UA Leuk Est) 15:58:00) [facility] TylerAyhjoovSONDRQTXLF0560-36-71 21:58:00 Test Item Value Reference Range Interpretation Comments UA Nitrite (test code Negative (08/19/2011 N = UA Nitrite) 15:58:00) [facility] TylerXdhqsigSVJPHUEBRQ9612-68-40 21:58:00 Test Item Value Reference Range Interpretation Comments UA pH (test code = UA pH) 5.5 1 5.0-8.0 N [facility] TylerEcdrhfkQTCZSJAAGP0053-36-08 21:58:00 Test Item Value Reference Range Interpretation Comments UA Blood (test code = Trace *ABN*(08/19/2011 A UA Blood) 15:58:00) [facility] TylerYrygmkpOPQLXGTPVK0942-53-36 21:58:00 Test Item Value Reference Range Interpretation Comments UA Bili (test code = Negative (08/19/2011 N UA Bili) 15:58:00) [facility] TylerZaiffqmWRFYVUQPXX4520-96-70 21:58:00 Test Item Value Reference Range Interpretation Comments UA Ketones (test code = 80 mg/dL A UA Ketones) *ABN*(08/19/2011 15:58:00) [facility] TylerYeglvtmFQWUUCPDHI4924-61-22 21:58:00 Test Item Value Reference Range Interpretation Comments UA Glucose (test code = >=1000 mg/dL A UA Glucose) *ABN*(08/19/2011 15:58:00) [facility] TylerJopfisaTSAJBCQIOK4273-92-13 21:58:00 Test Item Value Reference Range Interpretation Comments UA Protein (test code Negative (08/19/2011 N = UA Protein) 15:58:00) [facility] TylerTtugdooACNCYKYWBE7123-92-60 21:58:00 Test Item Value Reference Range Interpretation Comments UA Turbidity (test code Slight Cloudy N = UA Turbidity) (08/19/2011 15:58:00) [facility] TylerWnheeqxXCPIVVOJNH1058-20-61 21:58:00 Test Item Value Reference Range Interpretation Comments UA Spec Grav (test code = UA Spec 1.025 1 Grav) [facility] CenterImpudaqBDGSMDDGIZ4743-23-41 21:58:00 Test Item Value Reference Range Interpretation Comments UA Color (test code = Yellow (08/19/2011 N UA Color) 15:58:00) [facility] AustinCcqfuywMOJBWOWFF4746-16-61 21:58:00 Test Item Value Reference Range Interpretation Comments S Preg (test code = S Negative (08/19/2011 N Preg) 15:58:00) [facility] AustinIawglwdIQPCIBRAX9266-33-88 21:58:00 Test Item Value Reference Range Interpretation Comments Lipase Lvl (test code = Lipase Lvl) 169 73-393 N [facility] AustinUsvxlqxSQEKYPXJF1382-32-07 21:58:00 Test Item Value Reference Range Interpretation Comments ALT (test code = ALT) 54 See_Comment N [Auto mated message] The system which ge nerated this result transmit rohit reference range : <=65. The reference range was not used to interpr et this result as reji l/abnormal. [facility] AustinUockyafQKLVOIPNV5463-13-59 21:58:00 Test Item Value Reference Range Interpretation Comments Alk Phos (test code = Alk Phos) 110 39-136 N [facility] AustinIsronnpABWHVMMXQ5319-57-63 21:58:00 Test Item Value Reference Range Interpretation Comments Bili Direct (test code 0.1 See_Comment N [Aut omated message] The = Bili Direct) system which generated this result tra nsmitted reference range : <=0.3. The reference r leo was not used to int erpret this result as reji l/abnormal. [facility] AustinHwyrtvoCECQNSEPR2367-61-57 21:58:00 Test Item Value Reference Range Interpretation Comments Bili Total (test code = Bili Total) 0.9 0.2-1.3 N [facility] AustinLwtephcCRYXLLAOG1451-64-34 21:58:00 Test Item Value Reference Range Interpretation Comments Albumin Lvl (test code = Albumin Lvl) 4.4 3.5-5.0 N [facility] AustinTwckvefNNAXXRLSF0977-42-71 21:58:00 Test Item Value Reference Range Interpretation Comments Total Protein (test code = Total 8.8 6.4-8.4 H Protein) [facility] AustinTlqdnjkUYQKCCQNY3036-96-46 21:58:00 Test Item Value Reference Range Interpretation Comments Bili Indirect (test 0.8 See_Comment N [Automa rohit message] The code = Bili Indirect) system which generated this result tra nsmitted reference range : <=1.0. The reference r leo was not used to int erpret this result as normal/abnormal . [facility] CdsswerRZRWNMDFW5934-70-30 21:58:00 Test Item Value Reference Range Interpretation Comments AST (test code = AST) 36 See_Comment N [Auto mated message] The system which ge nerated this result transmit rohit reference range : <=37. The reference range was not used to interpr et this result as reji l/abnormal. [facility]icsErpyiwnIVHUTDDLX4355-99-73 21:58:00 Test Item Value Reference Range Interpretation Comments Globulin (test code = Globulin) 4.4 2.0-4.0 H [facility]icsGpqkvqsCRIVULVMP0735-57-01 21:58:00 Test Item Value Reference Range Interpretation Comments A/G Ratio (test code = A/G Ratio) 1.0 0.7-1.6 N [facility]icsQrmagakIVQIGAGXSE9023-38-64 21:58:00 Test Item Value Reference Range Interpretation Comments UA Bacteria (test code Occasional /HPF N = UA Bacteria) (08/19/2011 15:58:00) [facility]icsYmrqnxjXHAWGOFSHE5678-09-10 21:58:00 Test Item Value Reference Range Interpretation Comments UA RBC (test 3-5 /HPF See_Comment A [Automated mes pastor] code = UA RBC) *ABN*(08/19/2011 The syste m which 15:58:00) generated this result transmitted ref erence range: <=2. The reference range was not used to int erpret this result as normal/abnormal . [facility]icsCudtjtbSPDAAICELQ0308-00-92 21:58:00 Test Item Value Reference Range Interpretation Comments UA WBC (test code = 3 See_Comment [Automa rohit message] The UA WBC) system which ge nerated this result transmit rohit reference range : <=5. The reference range was not used to interpr et this result as reji l/abnormal. [facility] XaaycqiRXXEMMLWLZ0179-44-52 21:58:00 Test Item Value Reference Range Interpretation Comments UA Mucus (test code = Few /LPF (08/19/2011 N UA Mucus) 15:58:00) [facility] CenterWliiexjJFRGFTQXKA4213-11-48 21:58:00 Test Item Value Reference Range Interpretation Comments UA Amorph Destiny (test Occasional /HPF A code = UA Amorph *ABN*(08/19/2011 Destiny) 15:58:00) [facility] CenterMtvyxkpBCBCQKZXLJ5833-85-04 21:58:00 Test Item Value Reference Range Interpretation Comments UA Urobilinogen (test code = UA 0.2 0.1-1.0 N Urobilinogen) [facility] CenterNhzwraaXYVHVGAMKY4793-91-11 21:58:00 Test Item Value Reference Range Interpretation Comments UA Sq Epi (test code = Rare /LPF (08/19/2011 N UA Sq Epi) 15:58:00) [facility] TylerOmudsevVNYGJQRMVR1266-68-70 21:58:00 Test Item Value Reference Range Interpretation Comments Micro? (test code = Performed (08/19/2011 N Micro?) 15:58:00) [facility] TylerKmiuoauXBPARWOENV3222-43-83 21:58:00 Test Item Value Reference Range Interpretation Comments UA Leuk Est (test Negative (08/19/2011 N code = UA Leuk Est) 15:58:00) [facility] CenterYwqykezCWBUYJCXAU3054-58-22 21:58:00 Test Item Value Reference Range Interpretation Comments UA Nitrite (test code Negative (08/19/2011 N = UA Nitrite) 15:58:00) [facility] TylerAexjtrqBKOMUBQVQE0242-54-31 21:58:00 Test Item Value Reference Range Interpretation Comments UA pH (test code = UA pH) 5.5 1 5.0-8.0 N [facility] CenterNnyhgjoRMAOHEEZOL8686-78-03 21:58:00 Test Item Value Reference Range Interpretation Comments UA Blood (test code = Trace *ABN*(08/19/2011 A UA Blood) 15:58:00) [facility] CenterOlwjmlkSOHXRTSTJZ1284-37-08 21:58:00 Test Item Value Reference Range Interpretation Comments UA Bili (test code = Negative (08/19/2011 N UA Bili) 15:58:00) [facility] CenterTynswmwQWVHHLVRYI4949-32-93 21:58:00 Test Item Value Reference Range Interpretation Comments UA Ketones (test code = 80 mg/dL A UA Ketones) *ABN*(08/19/2011 15:58:00) [facility] TylerAhjlvyyNBHNJJSEUK6903-19-50 21:58:00 Test Item Value Reference Range Interpretation Comments UA Glucose (test code = >=1000 mg/dL A UA Glucose) *ABN*(08/19/2011 15:58:00) [facility] TylerObdructBMDEURICLM7204-17-14 21:58:00 Test Item Value Reference Range Interpretation Comments UA Protein (test code Negative (08/19/2011 N = UA Protein) 15:58:00) [facility] TylerUdehnkaTDWIZOJELL5980-50-31 21:58:00 Test Item Value Reference Range Interpretation Comments UA Turbidity (test code Slight Cloudy N = UA Turbidity) (08/19/2011 15:58:00) [facility] TylerLubnoccYOEPSLZABL1220-69-13 21:58:00 Test Item Value Reference Range Interpretation Comments UA Spec Grav (test code = UA Spec 1.025 1 Grav) [facility] TylerWradyepKOMDOPFRVB1386-80-51 21:58:00 Test Item Value Reference Range Interpretation Comments UA Color (test code = Yellow (08/19/2011 N UA Color) 15:58:00) [facility] AustinDwloiobQSPFCICXI6558-82-76 21:58:00 Test Item Value Reference Range Interpretation Comments S Preg (test code = S Negative (08/19/2011 N Preg) 15:58:00) [facility] AustinQayxgmhQGDQPYNOS4079-56-00 21:58:00 Test Item Value Reference Range Interpretation Comments Lipase Lvl (test code = Lipase Lvl) 169 73-393 N [facility] AustinVxbkxpyAETCKXAVH9623-69-91 21:58:00 Test Item Value Reference Range Interpretation Comments ALT (test code = ALT) 54 See_Comment N [Auto mated message] The system which ge nerated this result transmit rohit reference range : <=65. The reference range was not used to interpr et this result as reji l/abnormal. [facility] AustinJpwydybRTQULUUBE1722-66-54 21:58:00 Test Item Value Reference Range Interpretation Comments Alk Phos (test code = Alk Phos) 110 39-136 N [facility] AustinAebjxelCJTCRLGNA4884-65-64 21:58:00 Test Item Value Reference Range Interpretation Comments Bili Direct (test code 0.1 See_Comment N [Aut omated message] The = Bili Direct) system which generated this result tra nsmitted reference range : <=0.3. The reference r leo was not used to int erpret this result as reji l/abnormal. [facility] AustinUeisfwgRDZKUJFDO7796-08-44 21:58:00 Test Item Value Reference Range Interpretation Comments Bili Total (test code = Bili Total) 0.9 0.2-1.3 N [facility] AustinCfdkzjyEETKDFVPA7190-92-56 21:58:00 Test Item Value Reference Range Interpretation Comments Albumin Lvl (test code = Albumin Lvl) 4.4 3.5-5.0 N [facility] AustinCddtbynJRYJIFAVM5519-80-75 21:58:00 Test Item Value Reference Range Interpretation Comments Total Protein (test code = Total 8.8 6.4-8.4 H Protein) [facility] AustinIczxhnlCYKJEHYAH8231-86-35 21:58:00 Test Item Value Reference Range Interpretation Comments Bili Indirect (test 0.8 See_Comment N [Automa rohit message] The code = Bili Indirect) system which generated this result tra nsmitted reference range : <=1.0. The reference r leo was not used to int erpret this result as normal/abnormal . [facility] AustinHztvekgKLNIHOGLE0096-26-74 21:58:00 Test Item Value Reference Range Interpretation Comments AST (test code = AST) 36 See_Comment N [Auto mated message] The system which ge nerated this result transmit rohit reference range : <=37. The reference range was not used to interpr et this result as reji l/abnormal. [facility] AustinVbqzazyLGTCBCQHQ9538-60-91 21:58:00 Test Item Value Reference Range Interpretation Comments Globulin (test code = Globulin) 4.4 2.0-4.0 H [facility] AustinZlcunydJYVHQELBU6549-33-65 21:58:00 Test Item Value Reference Range Interpretation Comments A/G Ratio (test code = A/G Ratio) 1.0 0.7-1.6 N [facility] CenterAcwqrffEWNUEAVOLO5352-08-39 21:58:00 Test Item Value Reference Range Interpretation Comments UA Bacteria (test code Occasional /HPF N = UA Bacteria) (08/19/2011 15:58:00) [facility] CenterHtozxbpKUBRTXTUSA8439-59-39 21:58:00 Test Item Value Reference Range Interpretation Comments UA RBC (test 3-5 /HPF See_Comment A [Automated mes pastor] code = UA RBC) *ABN*(08/19/2011 The syste m which 15:58:00) generated this result transmitted ref erence range: <=2. The reference range was not used to int erpret this result as normal/abnormal . [facility] CenterKvrnhkvLCUWZKWQGU3685-86-95 21:58:00 Test Item Value Reference Range Interpretation Comments UA WBC (test code = 3 See_Comment [Automa rohit message] The UA WBC) system which ge nerated this result transmit rohit reference range : <=5. The reference range was not used to interpr et this result as reji l/abnormal. [facility] CenterUpbnzcbPXAWEQJIBZ7725-25-04 21:58:00 Test Item Value Reference Range Interpretation Comments UA Mucus (test code = Few /LPF (08/19/2011 N UA Mucus) 15:58:00) [facility] CenterXsdoscfHJOPCJYLQE5103-69-89 21:58:00 Test Item Value Reference Range Interpretation Comments UA Amorph Destiny (test Occasional /HPF A code = UA Amorph *ABN*(08/19/2011 Destiny) 15:58:00) [facility] CenterNbvpeehAZEAOUSWVP6636-85-10 21:58:00 Test Item Value Reference Range Interpretation Comments UA Urobilinogen (test code = UA 0.2 0.1-1.0 N Urobilinogen) [facility] [facility]SxkyjqlKAERBGZWOY8728-12-55 21:58:00 Test Item Value Reference Range Interpretation Comments UA Sq Epi (test code = Rare /LPF (08/19/2011 N UA Sq Epi) 15:58:00) [facility] CenterHghxpsnHLOAOBJMDQ4096-78-20 21:58:00 Test Item Value Reference Range Interpretation Comments Micro? (test code = Performed (08/19/2011 N Micro?) 15:58:00) [facility] CenterJcgvzdhLXNQHEMOBY8141-04-18 21:58:00 Test Item Value Reference Range Interpretation Comments UA Leuk Est (test Negative (08/19/2011 N code = UA Leuk Est) 15:58:00) [facility] CenterZueczonPGANMJOYUI1856-06-18 21:58:00 Test Item Value Reference Range Interpretation Comments UA Nitrite (test code Negative (08/19/2011 N = UA Nitrite) 15:58:00) [facility] CenterWshktvfSODZOFKJKW8994-31-42 21:58:00 Test Item Value Reference Range Interpretation Comments UA pH (test code = UA pH) 5.5 1 5.0-8.0 N [facility] CenterEdhoxxeDLTQGWCYCA1600-42-97 21:58:00 Test Item Value Reference Range Interpretation Comments UA Blood (test code = Trace *ABN*(08/19/2011 A UA Blood) 15:58:00) [facility] CenterMmudwwsCOAPRTRVON2601-66-75 21:58:00 Test Item Value Reference Range Interpretation Comments UA Bili (test code = Negative (08/19/2011 N UA Bili) 15:58:00) [facility] CenterWdkpmrlUFDYFWMXKV0065-67-88 21:58:00 Test Item Value Reference Range Interpretation Comments UA Ketones (test code = 80 mg/dL A UA Ketones) *ABN*(08/19/2011 15:58:00) [facility] TylerAstxonfEBRCAKOFEL4688-02-94 21:58:00 Test Item Value Reference Range Interpretation Comments UA Glucose (test code = >=1000 mg/dL A UA Glucose) *ABN*(08/19/2011 15:58:00) [facility] CenterJgoaizlEUMZYAUOJM1671-36-82 21:58:00 Test Item Value Reference Range Interpretation Comments UA Protein (test code Negative (08/19/2011 N = UA Protein) 15:58:00) [facility] CenterDeinsgwXKABTMMUJA9484-62-99 21:58:00 Test Item Value Reference Range Interpretation Comments UA Turbidity (test code Slight Cloudy N = UA Turbidity) (08/19/2011 15:58:00) [facility] CenterGesoqxkFZZWDOPSXI4830-54-56 21:58:00 Test Item Value Reference Range Interpretation Comments UA Spec Grav (test code = UA Spec 1.025 1 Grav) [facility] CenterUbpwkamQWJNAAIDSN9194-05-04 21:58:00 Test Item Value Reference Range Interpretation Comments UA Color (test code = Yellow (08/19/2011 N UA Color) 15:58:00) [facility] AustinPocznduZUZWMXYCE7591-88-25 21:58:00 Test Item Value Reference Range Interpretation Comments S Preg (test code = S Negative (08/19/2011 N Preg) 15:58:00) [facility] AustinZxxbxqfQCSBCOWMV6674-79-92 21:58:00 Test Item Value Reference Range Interpretation Comments Lipase Lvl (test code = Lipase Lvl) 169 73-393 N [facility] AustinFeggdkvWMUXDTHCU3894-14-21 21:58:00 Test Item Value Reference Range Interpretation Comments ALT (test code = ALT) 54 See_Comment N [Auto mated message] The system which ge nerated this result transmit rohit reference range : <=65. The reference range was not used to interpr et this result as reji l/abnormal. [facility] AustinYsdadaiQGDSZAYNU4563-98-94 21:58:00 Test Item Value Reference Range Interpretation Comments Alk Phos (test code = Alk Phos) 110 39-136 N [facility] AustinIlqswjtJVEDAXKHG1342-45-33 21:58:00 Test Item Value Reference Range Interpretation Comments Bili Direct (test code 0.1 See_Comment N [Aut omated message] The = Bili Direct) system which generated this result tra nsmitted reference range : <=0.3. The reference r leo was not used to int erpret this result as reji l/abnormal. [facility] AustinHantitsIUOTUPNUZ7448-33-38 21:58:00 Test Item Value Reference Range Interpretation Comments Bili Total (test code = Bili Total) 0.9 0.2-1.3 N [facility] AustinAcguhgvXISGLQJCU2177-10-98 21:58:00 Test Item Value Reference Range Interpretation Comments Albumin Lvl (test code = Albumin Lvl) 4.4 3.5-5.0 N [facility] AustinSdymxqcMNDDRETTG4061-12-47 21:58:00 Test Item Value Reference Range Interpretation Comments Total Protein (test code = Total 8.8 6.4-8.4 H Protein) [facility] AustinXouxaumERWKCFYCA7041-62-03 21:58:00 Test Item Value Reference Range Interpretation Comments Bili Indirect (test 0.8 See_Comment N [Automa rohit message] The code = Bili Indirect) system which generated this result tra nsmitted reference range : <=1.0. The reference r leo was not used to int erpret this result as normal/abnormal . [facility] AustinKubktmxQSKAVMPEJ7013-36-41 21:58:00 Test Item Value Reference Range Interpretation Comments AST (test code = AST) 36 See_Comment N [Auto mated message] The system which ge nerated this result transmit rohit reference range : <=37. The reference range was not used to interpr et this result as reji l/abnormal. [facility] CenterIiqgdwySMDVDKBAY3589-99-52 21:58:00 Test Item Value Reference Range Interpretation Comments Globulin (test code = Globulin) 4.4 2.0-4.0 H [facility] AustinBqokucfTMNEYKAJL5040-74-96 21:58:00 Test Item Value Reference Range Interpretation Comments A/G Ratio (test code = A/G Ratio) 1.0 0.7-1.6 N [facility] CenterJcqtqxgTPJERFHJCG4135-75-05 21:58:00 Test Item Value Reference Range Interpretation Comments UA Bacteria (test code Occasional /HPF N = UA Bacteria) (08/19/2011 15:58:00) [facility] CenterMmqaludQXALYAVOIO4996-09-18 21:58:00 Test Item Value Reference Range Interpretation Comments UA RBC (test 3-5 /HPF See_Comment A [Automated mes pastor] code = UA RBC) *ABN*(08/19/2011 The syste m which 15:58:00) generated this result transmitted ref erence range: <=2. The reference range was not used to int erpret this result as normal/abnormal . [facility] CenterHsmbeooCSHLBWISLB0402-76-85 21:58:00 Test Item Value Reference Range Interpretation Comments UA WBC (test code = 3 See_Comment [Automa rohit message] The UA WBC) system which ge nerated this result transmit rohit reference range : <=5. The reference range was not used to interpr et this result as reji l/abnormal. [facility] CenterKreazhwEVEPWUJCJA8628-50-09 21:58:00 Test Item Value Reference Range Interpretation Comments UA Mucus (test code = Few /LPF (08/19/2011 N UA Mucus) 15:58:00) [facility] CenterMtzvxeeDEFOFJKEGR4124-67-56 21:58:00 Test Item Value Reference Range Interpretation Comments UA Amorph Destiny (test Occasional /HPF A code = UA Amorph *ABN*(08/19/2011 Destiny) 15:58:00) [facility] CenterVoiicpsWMPQJKINGJ2622-55-48 21:58:00 Test Item Value Reference Range Interpretation Comments UA Urobilinogen (test code = UA 0.2 0.1-1.0 N Urobilinogen) [facility] CenterChtifupJQSPULNNRK4961-54-19 21:58:00 Test Item Value Reference Range Interpretation Comments UA Sq Epi (test code = Rare /LPF (08/19/2011 N UA Sq Epi) 15:58:00) [facility] CenterLzxyqrcYGZXLMHQOI9122-94-20 21:58:00 Test Item Value Reference Range Interpretation Comments Micro? (test code = Performed (08/19/2011 N Micro?) 15:58:00) [facility] TylerPxegwpiNESBDRLGYZ5144-37-79 21:58:00 Test Item Value Reference Range Interpretation Comments UA Leuk Est (test Negative (08/19/2011 N code = UA Leuk Est) 15:58:00) [facility] CenterAgfhzgnXYRDRSIEFD4341-70-23 21:58:00 Test Item Value Reference Range Interpretation Comments UA Nitrite (test code Negative (08/19/2011 N = UA Nitrite) 15:58:00) [facility] TylerIfsolptQRXGKVXFTR9284-85-69 21:58:00 Test Item Value Reference Range Interpretation Comments UA pH (test code = UA pH) 5.5 1 5.0-8.0 N [facility] TylerRlxcubgULPNABIOHF9726-89-40 21:58:00 Test Item Value Reference Range Interpretation Comments UA Blood (test code = Trace *ABN*(08/19/2011 A UA Blood) 15:58:00) [facility] TylerWwujoghGCDWJUCFTO5123-75-32 21:58:00 Test Item Value Reference Range Interpretation Comments UA Bili (test code = Negative (08/19/2011 N UA Bili) 15:58:00) [facility] TylerUjgjnblYNPHMEQWGK3868-94-97 21:58:00 Test Item Value Reference Range Interpretation Comments UA Ketones (test code = 80 mg/dL A UA Ketones) *ABN*(08/19/2011 15:58:00) [facility] CenterMlzesyyFQZZUUKISO4990-67-05 21:58:00 Test Item Value Reference Range Interpretation Comments UA Glucose (test code = >=1000 mg/dL A UA Glucose) *ABN*(08/19/2011 15:58:00) [facility] TylerPzgzmmbNWMORENMOE3109-58-72 21:58:00 Test Item Value Reference Range Interpretation Comments UA Protein (test code Negative (08/19/2011 N = UA Protein) 15:58:00) [facility] CenterDjmocixKFNHGHDGOJ5899-19-03 21:58:00 Test Item Value Reference Range Interpretation Comments UA Turbidity (test code Slight Cloudy N = UA Turbidity) (08/19/2011 15:58:00) [facility] CenterLmxcloeHMPODFHTJP8910-60-99 21:58:00 Test Item Value Reference Range Interpretation Comments UA Spec Grav (test code = UA Spec 1.025 1 Grav) [facility] CenterBuqcdquSHKFKDRYIC0359-85-60 21:58:00 Test Item Value Reference Range Interpretation Comments UA Color (test code = Yellow (08/19/2011 N UA Color) 15:58:00) [facility] AustinDdhwgmtOJKRVHVXZ9852-79-51 21:58:00 Test Item Value Reference Range Interpretation Comments S Preg (test code = S Negative (08/19/2011 N Preg) 15:58:00) [facility] AustinKzjslbbOKRCCOZBC0748-37-28 21:58:00 Test Item Value Reference Range Interpretation Comments Lipase Lvl (test code = Lipase Lvl) 169 73-393 N [facility] AustinQsgctmaBQOMEFWZH5889-29-57 21:58:00 Test Item Value Reference Range Interpretation Comments ALT (test code = ALT) 54 See_Comment N [Auto mated message] The system which ge nerated this result transmit rohit reference range : <=65. The reference range was not used to interpr et this result as reji l/abnormal. [facility] AustinYdvwbhjDHYKLVUII6926-27-34 21:58:00 Test Item Value Reference Range Interpretation Comments Alk Phos (test code = Alk Phos) 110 39-136 N [facility] AustinSnhsjseEFLJGIQEI9938-52-48 21:58:00 Test Item Value Reference Range Interpretation Comments Bili Direct (test code 0.1 See_Comment N [Aut omated message] The = Bili Direct) system which generated this result tra nsmitted reference range : <=0.3. The reference r leo was not used to int erpret this result as reji l/abnormal. [facility] AustinXcivvdfXWABADQKY9647-49-28 21:58:00 Test Item Value Reference Range Interpretation Comments Bili Total (test code = Bili Total) 0.9 0.2-1.3 N [facility] AustinMdurrhaQRYBUSTER2603-37-96 21:58:00 Test Item Value Reference Range Interpretation Comments Albumin Lvl (test code = Albumin Lvl) 4.4 3.5-5.0 N [facility] AustinOckubqsBEXIOVSVX0701-45-89 21:58:00 Test Item Value Reference Range Interpretation Comments Total Protein (test code = Total 8.8 6.4-8.4 H Protein) [facility] AustinIqwemzsEINUZULTH4545-26-57 21:58:00 Test Item Value Reference Range Interpretation Comments Bili Indirect (test 0.8 See_Comment N [Automa rohit message] The code = Bili Indirect) system which generated this result tra nsmitted reference range : <=1.0. The reference r leo was not used to int erpret this result as normal/abnormal . [facility]icsDvqrfzvTFPYTCNND5868-67-80 21:58:00 Test Item Value Reference Range Interpretation Comments AST (test code = AST) 36 See_Comment N [Auto mated message] The system which ge nerated this result transmit rohit reference range : <=37. The reference range was not used to interpr et this result as reji l/abnormal. [facility]icsErggzcsZTYGSBOII3599-05-00 21:58:00 Test Item Value Reference Range Interpretation Comments Globulin (test code = Globulin) 4.4 2.0-4.0 H [facility]icsPhrizkuAECRPROWY5554-34-34 21:58:00 Test Item Value Reference Range Interpretation Comments A/G Ratio (test code = A/G Ratio) 1.0 0.7-1.6 N [facility]icsFcrltunQYGQEDTBCC5171-96-85 21:58:00 Test Item Value Reference Range Interpretation Comments UA Bacteria (test code Occasional /HPF N = UA Bacteria) (08/19/2011 15:58:00) [facility] CenterNtdgvhxHWRCYMHHPV0382-60-23 21:58:00 Test Item Value Reference Range Interpretation Comments UA RBC (test 3-5 /HPF See_Comment A [Automated mes pastor] code = UA RBC) *ABN*(08/19/2011 The syste m which 15:58:00) generated this result transmitted ref erence range: <=2. The reference range was not used to int erpret this result as normal/abnormal . [facility]icsDafmkelBOSPMGKTVE5793-02-33 21:58:00 Test Item Value Reference Range Interpretation Comments UA WBC (test code = 3 See_Comment [Automa rohit message] The UA WBC) system which ge nerated this result transmit rohit reference range : <=5. The reference range was not used to interpr et this result as reji l/abnormal. [facility] CenterLkqpeuuBIMABXCELJ4224-38-88 21:58:00 Test Item Value Reference Range Interpretation Comments UA Mucus (test code = Few /LPF (08/19/2011 N UA Mucus) 15:58:00) [facility] CenterHmpvbooBZDCDKGGRB4302-86-80 21:58:00 Test Item Value Reference Range Interpretation Comments UA Amorph Destiny (test Occasional /HPF A code = UA Amorph *ABN*(08/19/2011 Destiny) 15:58:00) [facility] CenterAhpfcdcFXOEBSMDJF3244-27-49 21:58:00 Test Item Value Reference Range Interpretation Comments UA Urobilinogen (test code = UA 0.2 0.1-1.0 N Urobilinogen) [facility] CenterDaoomteDKROMEOXPX1550-57-48 21:58:00 Test Item Value Reference Range Interpretation Comments UA Sq Epi (test code = Rare /LPF (08/19/2011 N UA Sq Epi) 15:58:00) [facility] CenterVoitnsqBSTZPKYSHT8391-19-78 21:58:00 Test Item Value Reference Range Interpretation Comments Micro? (test code = Performed (08/19/2011 N Micro?) 15:58:00) [facility] CenterQazhkoxDVXORMDSDM1025-22-82 21:58:00 Test Item Value Reference Range Interpretation Comments UA Leuk Est (test Negative (08/19/2011 N code = UA Leuk Est) 15:58:00) [facility] CenterPkhcewsCWMSKGYHLT6688-69-00 21:58:00 Test Item Value Reference Range Interpretation Comments UA Nitrite (test code Negative (08/19/2011 N = UA Nitrite) 15:58:00) [facility] CenterUeaikdcFQOLQESBJA4426-54-76 21:58:00 Test Item Value Reference Range Interpretation Comments UA pH (test code = UA pH) 5.5 1 5.0-8.0 N [facility] CenterZtgyyyfWSAORIDVCK6850-73-56 21:58:00 Test Item Value Reference Range Interpretation Comments UA Blood (test code = Trace *ABN*(08/19/2011 A UA Blood) 15:58:00) [facility] CenterOheblvwGSPOFCRQBI6697-61-05 21:58:00 Test Item Value Reference Range Interpretation Comments UA Bili (test code = Negative (08/19/2011 N UA Bili) 15:58:00) [facility] TylerTyrhcsfCHVRTUXLAX2574-08-29 21:58:00 Test Item Value Reference Range Interpretation Comments UA Ketones (test code = 80 mg/dL A UA Ketones) *ABN*(08/19/2011 15:58:00) [facility] TylerJxgvmwhCXSIZTEEGH0748-02-53 21:58:00 Test Item Value Reference Range Interpretation Comments UA Glucose (test code = >=1000 mg/dL A UA Glucose) *ABN*(08/19/2011 15:58:00) [facility] TylerKztrwemJSUZCSASMD6736-83-56 21:58:00 Test Item Value Reference Range Interpretation Comments UA Protein (test code Negative (08/19/2011 N = UA Protein) 15:58:00) [facility] TylerXpbkrlsATRWECQRFF1365-79-44 21:58:00 Test Item Value Reference Range Interpretation Comments UA Turbidity (test code Slight Cloudy N = UA Turbidity) (08/19/2011 15:58:00) [facility] TylerSanbktrRUCXHHGSES6107-28-12 21:58:00 Test Item Value Reference Range Interpretation Comments UA Spec Grav (test code = UA Spec 1.025 1 Grav) [facility] TylerHgnxlouVYLQDVVVAP7099-66-40 21:58:00 Test Item Value Reference Range Interpretation Comments UA Color (test code = Yellow (08/19/2011 N UA Color) 15:58:00) [facility] AustinVyobjycVPDVIJJZH4889-39-88 21:13:00 Test Item Value Reference Range Interpretation Comments AST (test code = AST) 23 See_Comment N [Auto mated message] The system which ge nerated this result transmit rohit reference range : <=37. The reference range was not used to interpr et this result as reji l/abnormal. [facility] AustinKaabvcnSTUTYBSNI2671-20-63 21:13:00 Test Item Value Reference Range Interpretation Comments Bili Total (test code = Bili Total) 1.0 0.2-1.3 N [facility] AustinYymnvhiNWZAPCGSO8906-89-86 21:13:00 Test Item Value Reference Range Interpretation Comments Alk Phos (test code = Alk Phos) 115 39-136 N [facility] AustinUgnabelSUBBOEMUV9663-29-50 21:13:00 Test Item Value Reference Range Interpretation Comments ALT (test code = ALT) 56 See_Comment N [Auto mated message] The system which ge nerated this result transmit rohit reference range : <=65. The reference range was not used to interpr et this result as reji l/abnormal. [facility] AustinActnvmpURQLNRDYO6336-21-45 21:13:00 Test Item Value Reference Range Interpretation Comments Total Protein (test code = Total 9.0 6.4-8.4 H Protein) [facility] AustinCquytxrGYIHPDDWA6157-42-60 21:13:00 Test Item Value Reference Range Interpretation Comments Albumin Lvl (test code = Albumin Lvl) 4.8 3.5-5.0 N [facility] AustinLwpbcrdCLKQIVBGP7417-22-74 21:13:00 Test Item Value Reference Range Interpretation Comments Globulin (test code = Globulin) 4.2 2.0-4.0 H [facility] AustinZrwkuqzOAUDLUPPR7859-64-06 21:13:00 Test Item Value Reference Range Interpretation Comments A/G Ratio (test code = A/G Ratio) 1.1 0.7-1.6 N [facility] AustinMgiwncmXDVIRPGQP2772-75-95 21:13:00 Test Item Value Reference Range Interpretation Comments B/C Ratio (test code = B/C Ratio) 30 6-25 H [facility]VhhcpbtQCGVZGQTXE9831-38-09 21:13:00 Test Item Value Reference Range Interpretation Comments RBC Morph (test code = Normal (08/19/2011 N RBC Morph) 15:13:00) [facility]anoQrnvcehKZUFHAUVXT4733-80-71 21:13:00 Test Item Value Reference Range Interpretation Comments Large Plt (test code = Slight *ABN*(08/19/2011 A Large Plt) 15:13:00) [facility]anoNsnppidOREGHSFBTF6736-92-45 21:13:00 Test Item Value Reference Range Interpretation Comments Atypical Lymphs (test code = Atypical 0.0 N Lymphs) [facility]anoLtllhbzFVCIUDVMCH3861-62-37 21:13:00 Test Item Value Reference Range Interpretation Comments Bands (test code = 0.0 See_Comment N [Automat ed message] The Bands) system which ge nerated this result transmit rohit reference range : <=11.0. The reference r leo was not used to interpr et this result as reji l/abnormal. [facility] AustinYqerrhdHWXVLXDRQ3256-31-86 21:13:00 Test Item Value Reference Range Interpretation Comments AST (test code = AST) 23 See_Comment N [Auto mated message] The system which ge nerated this result transmit rohit reference range : <=37. The reference range was not used to interpr et this result as erji l/abnormal. [facility] AustinZvrvthyKMKSESAZH8695-13-32 21:13:00 Test Item Value Reference Range Interpretation Comments Bili Total (test code = Bili Total) 1.0 0.2-1.3 N [facility] AustinAjhyrueKZYHRGKDD6944-03-87 21:13:00 Test Item Value Reference Range Interpretation Comments Alk Phos (test code = Alk Phos) 115 39-136 N [facility] AustinVhxopegQWPMACZCT8050-07-86 21:13:00 Test Item Value Reference Range Interpretation Comments ALT (test code = ALT) 56 See_Comment N [Auto mated message] The system which ge nerated this result transmit rohit reference range : <=65. The reference range was not used to interpr et this result as reji l/abnormal. [facility] AustinPaidaooHQIEQZQGE7776-89-70 21:13:00 Test Item Value Reference Range Interpretation Comments Total Protein (test code = Total 9.0 6.4-8.4 H Protein) [facility] AustinKraotviDYLDQAANT0085-62-55 21:13:00 Test Item Value Reference Range Interpretation Comments Albumin Lvl (test code = Albumin Lvl) 4.8 3.5-5.0 N [facility] AustinObfhlpiLHPWHFKSA9864-79-54 21:13:00 Test Item Value Reference Range Interpretation Comments Globulin (test code = Globulin) 4.2 2.0-4.0 H [facility] AustinQfoeihrYTJRWNIPV3545-41-66 21:13:00 Test Item Value Reference Range Interpretation Comments A/G Ratio (test code = A/G Ratio) 1.1 0.7-1.6 N [facility] AustinYbrkguqPEEXEKUAE8956-00-63 21:13:00 Test Item Value Reference Range Interpretation Comments B/C Ratio (test code = B/C Ratio) 30 6-25 H [facility]anoUqajjokUPBNLVWLFP7158-75-99 21:13:00 Test Item Value Reference Range Interpretation Comments RBC Morph (test code = Normal (08/19/2011 N RBC Morph) 15:13:00) [facility]anoVnhbgbdXGLVIORPPX3110-78-20 21:13:00 Test Item Value Reference Range Interpretation Comments Large Plt (test code = Slight *ABN*(08/19/2011 A Large Plt) 15:13:00) [facility]anoSugvmgqKASFLJNAWM1483-96-84 21:13:00 Test Item Value Reference Range Interpretation Comments Atypical Lymphs (test code = Atypical 0.0 N Lymphs) [facility] PlanoHwiyadvMIGSBMJGER4797-44-54 21:13:00 Test Item Value Reference Range Interpretation Comments Bands (test code = 0.0 See_Comment N [Automat ed message] The Bands) system which ge nerated this result transmit rohit reference range : <=11.0. The reference r leo was not used to interpr et this result as reji l/abnormal. [facility] AustinRpzjgnmQWPWVEEZG8860-60-81 21:13:00 Test Item Value Reference Range Interpretation Comments AST (test code = AST) 23 See_Comment N [Auto mated message] The system which ge nerated this result transmit rohit reference range : <=37. The reference range was not used to interpr et this result as reji l/abnormal. [facility] AustinJfkmkhkXLMCZBPPB5980-57-95 21:13:00 Test Item Value Reference Range Interpretation Comments Bili Total (test code = Bili Total) 1.0 0.2-1.3 N [facility] AustinCxghjsxAFRBWJMWH6970-86-57 21:13:00 Test Item Value Reference Range Interpretation Comments Alk Phos (test code = Alk Phos) 115 39-136 N [facility] AustinCvklgtiUOEFGYAGU4058-00-98 21:13:00 Test Item Value Reference Range Interpretation Comments ALT (test code = ALT) 56 See_Comment N [Auto mated message] The system which ge nerated this result transmit rohit reference range : <=65. The reference range was not used to interpr et this result as reji l/abnormal. [facility] AustinCghqvayUVARTXLUF9454-61-63 21:13:00 Test Item Value Reference Range Interpretation Comments Total Protein (test code = Total 9.0 6.4-8.4 H Protein) [facility] AustinPngtaktDBYLJOIOQ0951-65-33 21:13:00 Test Item Value Reference Range Interpretation Comments Albumin Lvl (test code = Albumin Lvl) 4.8 3.5-5.0 N [facility] AustinOuhenniOGZOPUQVG2892-18-02 21:13:00 Test Item Value Reference Range Interpretation Comments Globulin (test code = Globulin) 4.2 2.0-4.0 H [facility] AustinTdvytkdMDAWDCCGM4517-60-68 21:13:00 Test Item Value Reference Range Interpretation Comments A/G Ratio (test code = A/G Ratio) 1.1 0.7-1.6 N [facility] AustinTdqgornIYGPOQYDE2141-36-73 21:13:00 Test Item Value Reference Range Interpretation Comments B/C Ratio (test code = B/C Ratio) 30 6-25 H [facility]anoWyvmrimETVZOVRWXY7380-44-83 21:13:00 Test Item Value Reference Range Interpretation Comments RBC Morph (test code = Normal (08/19/2011 N RBC Morph) 15:13:00) [facility] [facility]KOST0810[facility]-60 21:13:00 Test Item Value Reference Range Interpretation Comments Large Plt (test code = Slight *ABN*(08/19/2011 A Large Plt) 15:13:00) [facility]DuihignCWLXFNNKXE4750-90-91 21:13:00 Test Item Value Reference Range Interpretation Comments Atypical Lymphs (test code = Atypical 0.0 N Lymphs) [facility]anoQtrufffDLLYTZYLWI8942-89-18 21:13:00 Test Item Value Reference Range Interpretation Comments Bands (test code = 0.0 See_Comment N [Automat ed message] The Bands) system which ge nerated this result transmit rohit reference range : <=11.0. The reference r leo was not used to interpr et this result as reji l/abnormal. [facility] AustinFctpeeqQGAKKOMTV8552-62-00 21:13:00 Test Item Value Reference Range Interpretation Comments AST (test code = AST) 23 See_Comment N [Auto mated message] The system which ge nerated this result transmit rohit reference range : <=37. The reference range was not used to interpr et this result as reji l/abnormal. [facility] AustinCdclztoWFHMKMLOE2140-75-85 21:13:00 Test Item Value Reference Range Interpretation Comments Bili Total (test code = Bili Total) 1.0 0.2-1.3 N [facility] AustinKhdqleuNOPEINEOC8298-78-78 21:13:00 Test Item Value Reference Range Interpretation Comments Alk Phos (test code = Alk Phos) 115 39-136 N [facility] AustinQluwggsFMRYTHECI5920-41-71 21:13:00 Test Item Value Reference Range Interpretation Comments ALT (test code = ALT) 56 See_Comment N [Auto mated message] The system which ge nerated this result transmit rohit reference range : <=65. The reference range was not used to interpr et this result as reji l/abnormal. [facility] AustinHrsrmezFBWITVUPH9854-02-35 21:13:00 Test Item Value Reference Range Interpretation Comments Total Protein (test code = Total 9.0 6.4-8.4 H Protein) [facility] AustinJwksrgyXTXYUZQMM5089-75-89 21:13:00 Test Item Value Reference Range Interpretation Comments Albumin Lvl (test code = Albumin Lvl) 4.8 3.5-5.0 N [facility] AustinCmethvzOAOMGEHDJ3294-37-19 21:13:00 Test Item Value Reference Range Interpretation Comments Globulin (test code = Globulin) 4.2 2.0-4.0 H [facility] AustinTgwycmiZYTBGXHVC1975-48-64 21:13:00 Test Item Value Reference Range Interpretation Comments A/G Ratio (test code = A/G Ratio) 1.1 0.7-1.6 N [facility] AustinFsbfzjqQJOCUMPYT6909-67-32 21:13:00 Test Item Value Reference Range Interpretation Comments B/C Ratio (test code = B/C Ratio) 30 6-25 H [facility]anoHmrbumaQOAQAWCKQB7717-10-10 21:13:00 Test Item Value Reference Range Interpretation Comments RBC Morph (test code = Normal (08/19/2011 N RBC Morph) 15:13:00) [facility]anoDxxhpshLUPNDERVVP3578-86-02 21:13:00 Test Item Value Reference Range Interpretation Comments Large Plt (test code = Slight *ABN*(08/19/2011 A Large Plt) 15:13:00) [facility]anoXymkzroUWEGRKQXNS6041-71-56 21:13:00 Test Item Value Reference Range Interpretation Comments Atypical Lymphs (test code = Atypical 0.0 N Lymphs) [facility]anoEqamlpzPSOPDBUUFM4192-69-01 21:13:00 Test Item Value Reference Range Interpretation Comments Bands (test code = 0.0 See_Comment N [Automat ed message] The Bands) system which ge nerated this result transmit rohit reference range : <=11.0. The reference r leo was not used to interpr et this result as reji l/abnormal. [facility] AustinYqlkqlfAXBQBWZJX3475-71-74 21:13:00 Test Item Value Reference Range Interpretation Comments AST (test code = AST) 23 See_Comment N [Auto mated message] The system which ge nerated this result transmit rohit reference range : <=37. The reference range was not used to interpr et this result as reji l/abnormal. [facility] AustinYxvrmngNNRYYINED5648-23-43 21:13:00 Test Item Value Reference Range Interpretation Comments Bili Total (test code = Bili Total) 1.0 0.2-1.3 N [facility] AustinMrrlsnrXMGKYSPLW6033-29-54 21:13:00 Test Item Value Reference Range Interpretation Comments Alk Phos (test code = Alk Phos) 115 39-136 N [facility] AustinZpiazzkPZRZKWZQF7622-74-21 21:13:00 Test Item Value Reference Range Interpretation Comments ALT (test code = ALT) 56 See_Comment N [Auto mated message] The system which ge nerated this result transmit rohit reference range : <=65. The reference range was not used to interpr et this result as reji l/abnormal. [facility] AustinJtosstmPBRCWQDBW3312-02-63 21:13:00 Test Item Value Reference Range Interpretation Comments Total Protein (test code = Total 9.0 6.4-8.4 H Protein) [facility] AustinHdfqpcfTABHFMYEN8800-02-93 21:13:00 Test Item Value Reference Range Interpretation Comments Albumin Lvl (test code = Albumin Lvl) 4.8 3.5-5.0 N [facility] AustinUjsqcadITGEJSSNH3995-53-33 21:13:00 Test Item Value Reference Range Interpretation Comments Globulin (test code = Globulin) 4.2 2.0-4.0 H [facility] AustinStwskqqVTRLVFLRI1894-34-90 21:13:00 Test Item Value Reference Range Interpretation Comments A/G Ratio (test code = A/G Ratio) 1.1 0.7-1.6 N [facility] AustinJyeaaplVVKEKVSPG0953-35-62 21:13:00 Test Item Value Reference Range Interpretation Comments B/C Ratio (test code = B/C Ratio) 30 6-25 H [facility]anoVscyknrPFFUBQVAXP5630-99-96 21:13:00 Test Item Value Reference Range Interpretation Comments RBC Morph (test code = Normal (08/19/2011 N RBC Morph) 15:13:00) [facility]anoWrkttpbUMZFOXBPLA4594-23-30 21:13:00 Test Item Value Reference Range Interpretation Comments Large Plt (test code = Slight *ABN*(08/19/2011 A Large Plt) 15:13:00) [facility]anoPbsjdkeZSMXJXDZLW5820-15-23 21:13:00 Test Item Value Reference Range Interpretation Comments Atypical Lymphs (test code = Atypical 0.0 N Lymphs) [facility]anoEneuatkRWKJRTRYHL3288-12-97 21:13:00 Test Item Value Reference Range Interpretation Comments Bands (test code = 0.0 See_Comment N [Automat ed message] The Bands) system which ge nerated this result transmit rohit reference range : <=11.0. The reference r leo was not used to interpr et this result as reji l/abnormal. [facility] AustinGrzgbseUTHUWSVSH0381-69-50 21:10:00 Test Item Value Reference Range Interpretation Comments O2 Sat Roberth (test code = O2 Sat Roberth) 74.0 40.0-70.0 H [facility] AustinFndmjbfFSTBLIRLK1967-82-46 21:10:00 Test Item Value Reference Range Interpretation Comments Temp Roberth (test code = Temp Roberth) 37.0 [facility] AustinSdmwlrrLNJEMGLYH7281-58-56 21:10:00 Test Item Value Reference Range Interpretation Comments pO2 Roberth (test code = pO2 Roberth) 42 20-49 N [facility] AustinPjheivxGEOOMRHQG3444-58-91 21:10:00 Test Item Value Reference Range Interpretation Comments HCO3 Roberth (test code = HCO3 Roberth) 17.3 22.0-26.0 L [facility] AustinNwkmxghHDJSMBPYN5286-86-71 21:10:00 Test Item Value Reference Range Interpretation Comments pH Roberth (test code = pH Roberth) 7.34 7.28-7.42 N [facility] AustinKxquvbwNHZLGPCPJ8013-22-88 21:10:00 Test Item Value Reference Range Interpretation Comments pCO2 Roberth (test code = pCO2 Roberth) 32 38-52 L [facility] AustinOmndkpuUMXEBQJKQ1067-62-88 21:10:00 Test Item Value Reference Range Interpretation Comments BE Roberth (test code = -7 See_Comment L [Automa rohit message] The BE Roberth) system which ge nerated this result transmit rohit reference range : <=2. The reference range was not used to interpr et this result as reji l/abnormal. [facility] AustinMtqsikwZDGSFCBDY8821-05-21 21:10:00 Test Item Value Reference Range Interpretation Comments O2 Sat Roberth (test code = O2 Sat Roberth) 74.0 40.0-70.0 H [facility] AustinXiivnbuFICWWVHJO6275-02-46 21:10:00 Test Item Value Reference Range Interpretation Comments Temp Roberth (test code = Temp Roberth) 37.0 [facility] AustinVywtzzfUQLFPCPLB0854-41-06 21:10:00 Test Item Value Reference Range Interpretation Comments pO2 Roberth (test code = pO2 Roberth) 42 20-49 N [facility] AustinNhtswkxZPPQDLZCM2733-20-85 21:10:00 Test Item Value Reference Range Interpretation Comments HCO3 Roberth (test code = HCO3 Roberth) 17.3 22.0-26.0 L [facility] AustinHhwcuzuDWVQAWIXN9935-71-34 21:10:00 Test Item Value Reference Range Interpretation Comments pH Roberth (test code = pH Roberth) 7.34 7.28-7.42 N [facility] AustinMxxdamuFUQHKBDTA4748-73-93 21:10:00 Test Item Value Reference Range Interpretation Comments pCO2 Roberth (test code = pCO2 Roberth) 32 38-52 L [facility] AustinOfhyfspBYOMEBGZD4233-08-07 21:10:00 Test Item Value Reference Range Interpretation Comments BE Roberth (test code = -7 See_Comment L [Automa rohit message] The BE Roberth) system which ge nerated this result transmit rohit reference range : <=2. The reference range was not used to interpr et this result as reji l/abnormal. [facility] AustinNrcmleuCFQHHVWGX1187-55-03 21:10:00 Test Item Value Reference Range Interpretation Comments O2 Sat Orberth (test code = O2 Sat Roberth) 74.0 40.0-70.0 H [facility] AustinYzioiqqKJJDRVNSY8284-29-53 21:10:00 Test Item Value Reference Range Interpretation Comments Temp Roberth (test code = Temp Roberth) 37.0 [facility] AustinFhsplzrJCZGOZYQO3860-69-85 21:10:00 Test Item Value Reference Range Interpretation Comments pO2 Roberth (test code = pO2 Roberth) 42 20-49 N [facility] AustinUnxwydcPYCNENGIB9320-34-25 21:10:00 Test Item Value Reference Range Interpretation Comments HCO3 Roberth (test code = HCO3 Roberth) 17.3 22.0-26.0 L [facility] AustinRzajkdnCHUYCEYCV4633-57-13 21:10:00 Test Item Value Reference Range Interpretation Comments pH Roberth (test code = pH Roberth) 7.34 7.28-7.42 N [facility] AustinPyxxizkDNANVKQNH1771-29-87 21:10:00 Test Item Value Reference Range Interpretation Comments pCO2 Roberth (test code = pCO2 Roberth) 32 38-52 L [facility] AustinEqjozvwWRSIKOPPU3766-40-15 21:10:00 Test Item Value Reference Range Interpretation Comments BE Roberth (test code = -7 See_Comment L [Automa rohit message] The BE Roberth) system which ge nerated this result transmit rohit reference range : <=2. The reference range was not used to interpr et this result as reji l/abnormal. [facility] AustinXgjglkpLAEWFULHX8527-95-27 21:10:00 Test Item Value Reference Range Interpretation Comments O2 Sat Roberth (test code = O2 Sat Roberth) 74.0 40.0-70.0 H [facility] AustinVpamwhwVFZHGOTJR6104-42-45 21:10:00 Test Item Value Reference Range Interpretation Comments Temp Roberth (test code = Temp Roberth) 37.0 [facility] AustinEzigzzsKRVZSBBNM0231-25-71 21:10:00 Test Item Value Reference Range Interpretation Comments pO2 Roberth (test code = pO2 Roberth) 42 20-49 N [facility] AustinDyvctpuUGKJJQOEY5116-07-48 21:10:00 Test Item Value Reference Range Interpretation Comments HCO3 Roberth (test code = HCO3 Roberth) 17.3 22.0-26.0 L [facility] AustinYfcszwmFJFYMSKOV8961-53-25 21:10:00 Test Item Value Reference Range Interpretation Comments pH Roberth (test code = pH Roberth) 7.34 7.28-7.42 N [facility] AustinNgniovpECKUSSPJE4192-62-54 21:10:00 Test Item Value Reference Range Interpretation Comments pCO2 Roberth (test code = pCO2 Roberth) 32 38-52 L [facility] AustinIluqktdRBPVUSPSN4643-58-42 21:10:00 Test Item Value Reference Range Interpretation Comments BE Roberth (test code = -7 See_Comment L [Automa rohit message] The BE Roberth) system which ge nerated this result transmit rohit reference range : <=2. The reference range was not used to interpr et this result as reji l/abnormal. [facility] AustinNnteelrSXPITSZFZ7704-75-38 21:10:00 Test Item Value Reference Range Interpretation Comments O2 Sat Roberth (test code = O2 Sat Roberth) 74.0 40.0-70.0 H [facility] AustinSouplhzTTGSFLVNO4550-24-45 21:10:00 Test Item Value Reference Range Interpretation Comments Temp Roberth (test code = Temp Roberth) 37.0 [facility] AustinWfrfedzINYLHDRYM6895-26-67 21:10:00 Test Item Value Reference Range Interpretation Comments pO2 Roberth (test code = pO2 Roberth) 42 20-49 N [facility] AustinLblkjurJDIUFKZZR1844-50-32 21:10:00 Test Item Value Reference Range Interpretation Comments HCO3 Roberth (test code = HCO3 Roberth) 17.3 22.0-26.0 L [facility] AustinNptnamsQYMHSXPBZ2969-81-48 21:10:00 Test Item Value Reference Range Interpretation Comments pH Roberth (test code = pH Roberth) 7.34 7.28-7.42 N [facility] AustinSyvdwlqRIUOKDABF8920-66-67 21:10:00 Test Item Value Reference Range Interpretation Comments pCO2 Roberth (test code = pCO2 Roberth) 32 38-52 L [facility] AustinDzaocxuSRLXOZBXE0947-75-58 21:10:00 Test Item Value Reference Range Interpretation Comments BE Roberth (test code = -7 See_Comment L [Automa rohit message] The BE Roberth) system which ge nerated this result transmit rohit reference range : <=2. The reference range was not used to interpr et this result as reji l/abnormal. [facility]TqtcwxbYMBCEIFYUZ5158-56-40 20:34:00 Test Item Value Reference Range Interpretation Comments CDC-HIV 1/2 Ab (test Negative *NA*(08/19/2011 code = CDC-HIV 1/2 14:34:00) Ab) [facility] CenterQrwahokWPQAQCQGCP6547-86-85 20:34:00 Test Item Value Reference Range Interpretation Comments CDC-HIV 1/2 Ab (test Negative *NA*(08/19/2011 code = CDC-HIV 1/2 14:34:00) Ab) [facility] CenterEfsdvvgRKPNMBRXTT7183-89-49 20:34:00 Test Item Value Reference Range Interpretation Comments CDC-HIV 1/2 Ab (test Negative *NA*(08/19/2011 code = CDC-HIV 1/2 14:34:00) Ab) [facility] CenterXsasvjuMDSMFIEHTW7394-48-33 20:34:00 Test Item Value Reference Range Interpretation Comments CDC-HIV 1/2 Ab (test Negative *NA*(08/19/2011 code = CDC-HIV 1/2 14:34:00) Ab) [facility] CenterKwimfbpOURWGUVFYG7837-15-40 20:34:00 Test Item Value Reference Range Interpretation Comments CDC-HIV 1/2 Ab (test Negative *NA*(08/19/2011 code = CDC-HIV 1/2 14:34:00) Ab) Shahid Banuelos
[2023-04-30 17:42] LABS: Absolute Lymphocytes (CBC) 1.1 K/uL (0.7-4.9); Hematocrit 28.7 % (36.0-45.0); MCV 93.1 fL (80-100); MPV 10.1 fL (7.6-11.3); Platelets 91 thou/uL (152-406); RBC Red Blood Cell Count 3.08 M/uL (3.86-4.86)
[2023-04-30 17:53] LABS: Albumin 3.5 g/dL (3.4-5.0); Bilirubin Total 0.7 mg/dL (0.2-1.0); Potassium 4.2 mEq/L (3.5-5.1); Protein, Total 7.1 g/dL (6.4-8.2)
[2023-04-30] MEDS ORDERED: MIDAZOLAM HCL 2 MG/2 ML INJ ONE (18:05)
[2023-04-30] MEDS ORDERED: METOCLOPRAMIDE 10 MG/2mL INJ ONE (18:06)
[2023-04-30] MEDS ORDERED: KETOROLAC 30 MG/ML INJ ONE (18:06)
--- NOTE | 2023-04-30 18:53 | RAD REPORT ---
EXAM DESCRIPTION: US - Abdomen Exam Limited - 04/30/2023 6:28 pm CLINICAL HISTORY: Abd charly COMPARISON: Abdomen Pelvis Wo Contrast dated 03/08/2023 TECHNIQUE: Sonographic grayscale and color flow images of the right upper abdominal quadrant were obtained. FINDINGS: The gallbladder demonstrates small echogenic shadowing gallstones. No pericholecystic flui d. Gallbladder is contracted limiting evaluation, with diffuse wall prominence, measuring up to 5 mil limeter in thickness. The common bile duct is normal measuring 5 mm. The liver demonstrates no findings of intrahepatic biliary dilatation. IMPRESSION: Contracted gallbladder with apparent wall thickening. Evaluation for cholecystitis is damaso ventura. Cholelithiasis.
[2023-04-30] MEDS ORDERED: HYDRALAZINE HCL 20 MG/ML VIAL ONE (18:54)
--- NOTE | 2023-04-30 19:20 | ER ---
Nurse's Notes [facility] Name: Cathi Zaldivar Age: 42 yrs Sex: Female : 1980 Arrival Date: 04/30/2023 Time: 16:35 Bed 8 Private MD: Diagnosis: Other cholelithiasis without obstruction;Nausea with vomiting, unspecified;Abdominal pain, unspecified Presentation: 04/30 16:49 Chief complaint: Patient states: abd pain X 4-5 days, +n/v. Coronavirus screen: At this iw time, the client does not indicate any symptoms associated with coronavirus-19. Ebola Screen: Patient negative for fever greater than or equal to 101.5 degrees Fahrenheit, and additional compatible Ebola Virus Disease symptoms Patient denies exposure to infectious person. Patient denies travel to an Ebola-affected area in the 21 days before illness onset. No symptoms or risks identified at this time. Initial Sepsis Screen: Does the patient meet any 2 criteria? No. Patient's initial sepsis screen is negative. Does the patient have a suspected source of infection? No. Patient's initial sepsis screen is negative. Risk Assessment: Do you want to hurt yourself or someone else? Patient reports no desire to harm self or others. Onset of symptoms was April 26, 2023. 16:49 Method Of Arrival: Wheelchair iw 16:49 Acuity: JESSICA 3 iw Historical: - Allergies: 16:51 ambien; iw 16:51 Codeine; iw 16:51 GABAPENTIN; iw 16:51 GUAIFENESIN; iw 16:51 Lisinopril; iw 16:51 Morphine; iw 16:51 Nitrofurantoin Macrocrystal; iw 16:51 PENICILLINS; iw 16:51 Prolixin; iw 16:51 Seroquel; iw 16:51 Tape; iw 16:51 zolpidem tartrate; iw - PMHx: 16:51 cardiac arrest; CHF; chronic kidney disease; cyclic vomiting syndrome; cyclic vomiting iw syndrome; Diabetes - NIDDM; Dialysis; m-w-f; ENCEPHALOPATHY; Gastroparesis; Gastroparesis; Hypertension; ibs; liver failure; PERIPHERAL NEUROPATHY; pseudo aneurysm R groin; Seizures; - PSHx: 16:51 2 heart stents; section; dialysis catheter R chest wall; eye removed; iw - Immunization history:: Adult Immunizations up to date. - Social history:: Smoking status: Patient reports the use of cigarette tobacco products. Screenin:12 [facility] ED Fall Risk Assessment (Adult) History of falling in the last 3 months, ld1 including since admission No falls in past 3 months (0 pts). Abuse screen: Denies threats or abuse. Denies injuries from another. Nutritional screening: No deficits noted. Tuberculosis screening: No symptoms or risk factors identified. Assessment: 17:12 General: Appears in no apparent distress. comfortable, Behavior is calm, cooperative, ld1 appropriate for age. Pain: Complains of pain in abdomen Pain does not radiate. Pain currently is 8 out of 10 on a pain scale. Quality of pain is described as throbbing. Neuro: Level of Consciousness is awake, alert, obeys commands, Oriented to person, place, time, situation, Appropriate for age. Cardiovascular: Capillary refill < 3 seconds Patient's skin is warm and dry. Respiratory: Airway is patent Respiratory effort is even, unlabored. GI: Abdomen is round non-distended, Bowel sounds present X 4 quads. Abd is soft Abdomen is tender to palpation Reports lower abdominal pain, upper abdominal pain. : No signs and/or symptoms were reported regarding the genitourinary system. EENT: No signs and/or symptoms were reported regarding the EENT system. Derm: No signs and/or symptoms reported regarding the dermatologic system. Musculoskeletal: No signs and/or symptoms reported regarding the musculoskeletal system. 18:38 Reassessment: Patient appears in no apparent distress at this time. Patient and/or hb family updated on plan of care and expected duration. Pain level reassessed. Patient is alert, oriented x 3, equal unlabored respirations, skin warm/dry/pink. 19:15 Reassessment: Patient appears in no apparent distress at this time. Patient and/or jb4 family updated on plan of care and expected duration. Pain level reassessed. Patient is alert, oriented x 3, equal unlabored respirations, skin warm/dry/pink. Vital Signs: 16:49 BP 225 / 103; Pulse 76; Resp 18; Temp 98.1; Pulse Ox 100% ; Weight 74 kg; Height 5 ft. iw 1 in. ; Pain 8/10; 18:10 BP 194 / 97; Pulse 83; ld1 18:38 BP 166 / 92; Pulse 77; Resp 15; Pulse Ox 98% on R/A; hb 19:00 BP 182 / 87; Pulse 86; Resp 16; Pulse Ox 97% on R/A; jb4 16:49 Body Mass Index 30.83 (74.00 kg, 154.94 cm) iw 16:49 Pain Scale: Adult iw ED Course: 16:38 Patient arrived in ED. mg5 16:40 Luis Ruvalcaba PA is PHCP. cp 16:41 Sam Nagel MD is Attending Physician. cp 16:50 Triage completed. iw 16:51 Arm band placed on. iw 17:11 COVID-19 SARS RT PCR Sent. ld1 17:12 Patient has correct armband on for positive identification. Placed in gown. Bed in low ld1 position. Call light in reach. Side rails up X2. Pulse ox on. NIBP on. Door closed. Noise minimized. Warm blanket given. 17:12 Influenza Screen (a \T\ B) Sent. ld1 17:12 No provider procedures requiring assistance completed. ld1 17:21 Sarah Saleh, TABATHA is Primary Nurse. ld1 17:25 Initial lab(s) drawn, by ga, sent to lab. Inserted saline lock: 22 gauge in right upper jl7 arm, using aseptic technique. Blood collected. 18:31 US Abdomen Limited: gallbladder In Process Unspecified. EDMS 19:00 IV discontinued, intact, bleeding controlled, No redness/swelling at site. Pressure jb4 dressing applied. Administered Medications: 17:11 Drug: Ondansetron PO 4 mg PO once Route: PO; ld1 18:00 Follow up: Response: No adverse reaction hb 18:01 Drug: Midazolam IVP or IV 2 mg IVP once Route: IVP; Site: Other; ld1 18:44 Follow up: Response: No adverse reaction hb 18:02 Drug: Ketorolac IVP 15 mg IVP once Route: IVP; Site: Other; ld1 18:44 Follow up: Response: No adverse reaction hb 18:02 Drug: metoCLOPramide IVP 10 mg IVP once; over 1 to 2 minutes Route: IVP; Site: Other; ld1 18:44 Follow up: Response: No adverse reaction hb 18:43 Drug: hydrALAZINE IVP 10 mg IVP once Route: IVP; Site: right upper arm; hb Medication: 17:12 VIS not applicable for this client. ld1 Outcome: 19:19 Discharge ordered by . cp 19:43 Discharged to home ambulatory, jb4 19:43 Condition: stable 19:43 Discharge instructions given to patient, Instructed on discharge instructions, follow up and referral plans. medication usage, Demonstrated understanding of instructions, follow-up care, medications, Prescriptions given X 2, 19:43 Patient left the ED. jb4 Signatures: Dispatcher [employer] EDCorinne Benedict, RN RN iw Luis Ruvalcaba PA PA Bailee Bond, RN RN Silverio Macias RN RN jb4 Sophie Rubio RN RN jl7 Sarah Saleh RN RN ld1 Ekaterina Key mg5 Corrections: (The following items were deleted from the chart) 16:51 16:49 Pulse 76bpm; Resp 18bpm; Pulse Ox 100%; Temp 98.1F; 74 kg; Height 5 ft. 1 in.; iw BMI: 30.8; Pain 8/10, Adult; iw
--- NOTE | 2023-04-30 19:20 | EDPHYS ---
Physician Documentation [facility] Name: Cathi Zaldivar Age: 42 yrs Sex: Female : 1980 Arrival Date: 04/30/2023 Time: 16:35 Bed 8 Private MD: ED Physician Sam Nagel HPI: 04/30 17:05 This 42 yrs old Female presents to ER via Wheelchair with complaints of cp Abdominal Pain. 17:05 The patient presents with abdominal pain in the upper abdomen. cp 17:05 Onset: The symptoms/episode began/occurred 4 day(s) ago. cp 17:05 Associated signs and symptoms: Pertinent positives: nausea and vomiting, Pertinent cp negatives: constipation, diarrhea, fever, vomiting blood. The symptoms are described as constant. Severity of pain: in the emergency department the pain is unchanged. The patient has experienced similar episodes in the past, chronically. Historical: - Allergies: 16:51 ambien; iw 16:51 Codeine; iw 16:51 GABAPENTIN; iw 16:51 GUAIFENESIN; iw 16:51 Lisinopril; iw 16:51 Morphine; iw 16:51 Nitrofurantoin Macrocrystal; iw 16:51 PENICILLINS; iw 16:51 Prolixin; iw 16:51 Seroquel; iw 16:51 Tape; iw 16:51 zolpidem tartrate; iw - PMHx: 16:51 cardiac arrest; CHF; chronic kidney disease; cyclic vomiting syndrome; cyclic vomiting iw syndrome; Diabetes - NIDDM; Dialysis; m-w-f; ENCEPHALOPATHY; Gastroparesis; Gastroparesis; Hypertension; ibs; liver failure; PERIPHERAL NEUROPATHY; pseudo aneurysm R groin; Seizures; - PSHx: 16:51 2 heart stents; section; dialysis catheter R chest wall; eye removed; iw - Immunization history:: Adult Immunizations up to date. - Social history:: Smoking status: Patient reports the use of cigarette tobacco products. ROS: 17:10 Constitutional: Negative for body aches, chills, fever, cp 17:10 Eyes: Negative for injury, pain, redness, and discharge, cp 17:10 ENT: Negative for drainage from ear(s), ear pain, sore throat, difficulty swallowing, difficulty handling secretions, 17:10 Cardiovascular: Positive for edema, Negative for chest pain, palpitations, 17:10 Respiratory: Negative for cough, shortness of breath, wheezing, 17:10 Abdomen/GI: Positive for abdominal pain, nausea and vomiting, Negative for diarrhea, constipation, hematemesis, black/tarry stool, rectal bleeding, 17:10 Neuro: Negative for altered mental status, headache, 17:10 All other systems are negative, Exam: 17:15 Constitutional: The patient appears in no acute distress, alert, awake, cp non-diaphoretic, non-toxic, well developed, well nourished, 17:15 Head/Face: Normocephalic, atraumatic. cp 17:15 Eyes: Periorbital structures: appear normal, Conjunctiva: normal, no exudate, no injection, Sclera: no appreciated abnormality, Lids and lashes: appear normal, bilaterally, 17:15 ENT: External ear(s): are unremarkable, Nose: is normal, Mouth: Lips: moist, Oral mucosa: pink and intact, moist, Posterior pharynx: is normal, airway is patent, no erythema, no exudate, 17:15 Chest/axilla: Inspection: normal, 17:15 Cardiovascular: Rate: normal, Rhythm: regular, Edema: ankle edema, that is mild, JVD: is not appreciated, 17:15 Respiratory: the patient does not display signs of respiratory distress, Respirations: normal, no use of accessory muscles, no retractions, labored breathing, is not present, Breath sounds: are clear throughout, no decreased breath sounds, no stridor, no wheezing, 17:15 Abdomen/GI: Inspection: abdomen appears normal, Bowel sounds: active, all quadrants, Palpation: soft, in all quadrants, moderate abdominal tenderness, in all quadrants, rebound tenderness, is not appreciated, 17:15 Back: pain, is absent, ROM is normal, 17:15 Neuro: Orientation: to person, place \T\ time. Mentation: is normal, Vital Signs: 16:49 BP 225 / 103; Pulse 76; Resp 18; Temp 98.1; Pulse Ox 100% ; Weight 74 kg; Height 5 ft. iw 1 in. ; Pain 8/10; 18:10 BP 194 / 97; Pulse 83; ld1 18:38 BP 166 / 92; Pulse 77; Resp 15; Pulse Ox 98% on R/A; hb 19:00 BP 182 / 87; Pulse 86; Resp 16; Pulse Ox 97% on R/A; jb4 16:49 Body Mass Index 30.83 (74.00 kg, 154.94 cm) iw 16:49 Pain Scale: Adult iw MDM: 16:57 Patient medically screened. 18:00 Differential diagnosis: cholecystitis, Cholelithiasis, diverticulitis, gastritis, cp non-specific abd pain, pancreatitis, Peptic Ulcer Disease, Perf. Duodenal Ulcer, Perf. Gastric Ulcer. 19:15 Data reviewed: vital signs, nurses notes, lab test result(s), radiologic studies, cp ultrasound. 19:15 I considered the following discharge prescriptions or medication management in the emergency department Medications were administered in the Emergency Department. See MAR. Care significantly affected by the following chronic conditions: Congestive Heart Failure, Chronic Kidney Disease, abdominal pain. Counseling: I had a detailed discussion with the patient and/or guardian regarding the historical points, exam findings, and any diagnostic results supporting the discharge/admit diagnosis, lab results, radiology results, the need for outpatient follow up, a general surgeon, to return to the emergency department if symptoms worsen or persist or if there are any questions or concerns that arise at home. Response to treatment: the patient's symptoms have markedly improved after treatment, and as a result, I will discharge patient. ED course: VS noted. Vomiting resolved and patient tolerating po fluids. Will discharge to home for continued monitoring. 04/30 17:03 Order name: CBC with Diff; Complete Time: 18:04 04/30 18:05 Interpretation: Normal except: WBC 3.10; RBC 3.08; HGB 9.5; HCT 28.7; PLT 91; RDW 18.2; cp BASO% 1.4; NEUT A 1.6. 04/30 17:03 Order name: CMP; Complete Time: 18:04 04/30 18:05 Interpretation: Normal except: GLUC 179; BUN 29; CRE 6.57; GFR 8; ALT 11; GLOB 3.6; A/G cp 1.0. 04/30 17:03 Order name: Lipase; Complete Time: 18:04 04/30 18:05 Interpretation: LIP 42; Reviewed. 04/30 17:03 Order name: Influenza Screen (a \T\ B); Complete Time: 18:04 04/30 17:03 Order name: COVID-19 SARS RT PCR; Complete Time: 18:04 cp 04/30 17:03 Order name: Magnesium; Complete Time: 18:04 cp 04/30 18:06 Order name: US Abdomen Limited: gallbladder; Complete Time: 18:54 cp 04/30 17:03 Order name: IV Saline Lock; Complete Time: 17:25 cp 04/30 17:03 Order name: Labs collected and sent; Complete Time: 17:25 cp 04/30 18:06 Order name: NPO; Complete Time: 18:10 cp 04/30 18:06 Order name: Blood Pressure Recheck; Complete Time: 18:10 cp 04/30 19:05 Order name: PO challenge; Complete Time: 19:33 cp Administered Medications: 17:11 Drug: Ondansetron PO 4 mg PO once Route: PO; ld1 18:00 Follow up: Response: No adverse reaction hb 18:01 Drug: Midazolam IVP or IV 2 mg IVP once Route: IVP; Site: Other; ld1 18:44 Follow up: Response: No adverse reaction hb 18:02 Drug: Ketorolac IVP 15 mg IVP once Route: IVP; Site: Other; ld1 18:44 Follow up: Response: No adverse reaction hb 18:02 Drug: metoCLOPramide IVP 10 mg IVP once; over 1 to 2 minutes Route: IVP; Site: Other; ld1 18:44 Follow up: Response: No adverse reaction hb 18:43 Drug: hydrALAZINE IVP 10 mg IVP once Route: IVP; Site: right upper arm; hb Disposition Summary: 04/30/23 19:19 Discharge Ordered Notes: Location: Home cp Problem: an ongoing problem cp Symptoms: have improved cp Condition: Stable cp Diagnosis - Other cholelithiasis without obstruction cp - Nausea with vomiting, unspecified cp - Abdominal pain, unspecified cp Followup: cp - With: Private Physician - When: 1 - 2 days - Reason: Recheck today's complaints Discharge Instructions: - Discharge Summary Sheet cp - Abdominal Pain, Adult cp - Nausea and Vomiting, Adult cp - Cholelithiasis cp Forms: - Medication Reconciliation Form cp - Thank You Letter cp - Antibiotic Education cp - Prescription Opioid Use cp - Patient Portal Instructions cp - Leadership Thank You Letter cp Prescriptions: - Zofran 4 mg Oral Tablet - take 1 tablet ORAL route every 12 hours As needed; 20 tablet; Refills: 0, cp Product Selection Permitted - dicyclomine 20 mg Oral tablet - take 1 tablet ORAL route 4 times per day; 30 tablet; Refills: 0, Product cp Selection Permitted Signatures: Dispatcher [employer] Corinne Marshall, RN RN Luis Childs PA PA cp Baxter, Heather, RN RN Sarah Saleh RN RN ld1
[2023-04-30 20:01] VITALS: TEMP 98.1
[2023-04-30 20:04] VITALS: BP 182/87; O2SAT 97
== END 2023-04-30 19:43 | disposition home or self-care (01) ==
LOC: ER 16:35
DX: K80.80 Other cholelithiasis without obstruction (principal); R11.2 Nausea with vomiting, unspecified; E11.22 Type 2 diabetes mellitus with diabetic chronic kidney disease; I13.2 Hypertensive heart and chronic kidney disease with heart failure and with stage 5 chronic kidney disease, or end stage renal disease; N18.6 End stage renal disease; I50.9 Heart failure, unspecified; Z99.2 Dependence on renal dialysis; Z88.0 Allergy status to penicillin; Z88.5 Allergy status to narcotic agent; Z88.8 Allergy status to other drugs, medicaments and biological substances; Z11.52 Encounter for screening for COVID-19; Z72.0 Tobacco use; Z95.818 Presence of other cardiac implants and grafts
CPT/HCPCS: 85025; 36415; 83735; 83690; 80053; 87635; 87804 ×2; 76705; 99284; Q0162; J0360; J2765; J2250

== ENCOUNTER 2023-05-31 16:48 | Emergency (ER) | payer MEDICARE, OTHER ==
[2023-05-31] MEDS ORDERED: DICYCLOMINE HCL 20 MG/2 ML AMP IM ONE (20:04)
[2023-05-31] MEDS ORDERED: METOCLOPRAMIDE 10 MG/2mL INJ ONE (20:33)
[2023-05-31] MEDS ORDERED: cloNIDine HCL 0.1 MG TAB ONE (20:46)
[2023-05-31] MEDS ORDERED: ACETAMINOPHEN 500 MG TAB ONE (20:50)
[2023-05-31 21:10] LABS: Absolute Lymphocytes (CBC) 0.9 K/uL (0.7-4.9); Hematocrit 32.8 % (36.0-45.0); Lymphocytes % 26.1 % (15.3-44.8); MCV 92.1 fL (80-100); MPV 9.7 fL (7.6-11.3); Platelets 96 thou/uL (152-406); RBC Red Blood Cell Count 3.56 M/uL (3.86-4.86)
--- NOTE | 2023-05-31 21:24 | EDPHYS ---
Physician Documentation [facility] Name: Cathi Zaldivar Age: 42 yrs Sex: Female : 1980 Arrival Date: 05/31/2023 Time: 16:48 Bed 10 Private MD: ED Physician Dinesh Stallworth HPI: 05/31 17:31 This 42 yrs old Female presents to ER via Unassigned with complaints of cp Vomiting, Headache, Abdominal Pain. 17:31 The patient presents to the emergency department with nausea, that is moderate, cp vomiting, that is intermittent, abdominal pain, of the mid abdomen. Onset: The symptoms/episode began/occurred today. Associated signs and symptoms: Pertinent positives: sore throat. 17:32 Patient reports completing dialysis this afternoon. cp Historical: - Allergies: 17:30 ambien; cm10 17:30 Codeine; cm10 17:30 GABAPENTIN; cm10 17:30 GUAIFENESIN; cm10 17:30 Lisinopril; cm10 17:30 Morphine; cm10 17:30 Nitrofurantoin Macrocrystal; cm10 17:30 PENICILLINS; cm10 17:30 Prolixin; cm10 17:30 Seroquel; cm10 17:30 Tape; cm10 17:30 zolpidem tartrate; cm10 - PMHx: 17:30 cardiac arrest; chronic kidney disease; CHF; cyclic vomiting syndrome; Diabetes - cm10 NIDDM; Dialysis; m-w-f; ENCEPHALOPATHY; Hypertension; Gastroparesis; liver failure; PERIPHERAL NEUROPATHY; ibs; pseudo aneurysm R groin; Seizures; - PSHx: 17:30 2 heart stents; dialysis catheter R chest wall; section; eye removed; cm10 - Immunization history:: Adult Immunizations unknown. - Social history:: Smoking status: unknown. ROS: 17:35 Abdomen/GI: Positive for abdominal pain, nausea and vomiting, cp 17:35 Constitutional: Negative for body aches, chills, fever, cp 17:35 ENT: Negative for drainage from ear(s), ear pain, sore throat, difficulty swallowing, difficulty handling secretions, 17:35 Cardiovascular: Negative for chest pain, 17:35 Respiratory: Negative for cough, shortness of breath, wheezing, 17:35 Neuro: Positive for headache, Negative for altered mental status, numbness, weakness, 17:35 Eyes: Negative for injury, pain, redness, and discharge, cp 17:35 All other systems are negative, cp Exam: 17:40 Constitutional: The patient appears in no acute distress, alert, awake, cp non-diaphoretic, non-toxic, well developed, 17:40 Head/Face: Normocephalic, atraumatic. cp 17:40 Eyes: Periorbital structures: appear normal, Pupils: equal, round, and reactive to light and accomodation, Extraocular movements: intact throughout, Conjunctiva: normal, no exudate, no injection, Lids and lashes: appear normal, bilaterally, 17:40 ENT: External ear(s): are unremarkable, Nose: is normal, Mouth: Lips: moist, Oral mucosa: pink and intact, moist, Posterior pharynx: Airway: no evidence of obstruction, patent, 17:40 Neck: ROM/movement: is normal, is supple, without pain, no range of motions limitations, no meningismus, 17:40 Chest/axilla: Inspection: no acute changes, 17:40 Cardiovascular: Rate: normal, Rhythm: regular, Edema: is not appreciated, JVD: is not appreciated, 17:40 Respiratory: the patient does not display signs of respiratory distress, Respirations: normal, no use of accessory muscles, no retractions, labored breathing, is not present, Breath sounds: are clear throughout, no decreased breath sounds, no stridor, no wheezing, 17:40 Abdomen/GI: Inspection: abdomen appears normal, Bowel sounds: active, all quadrants, Palpation: soft, in all quadrants, moderate abdominal tenderness, in the mid abdomen bilaterally, rebound tenderness, is not appreciated, involuntary guarding, is not appreciated, 17:40 Back: pain, is absent, ROM is normal, 17:40 Neuro: Orientation: to person, place \T\ time. Mentation: is normal, Motor: moves all fours, strength is normal, Sensation: is normal, Vital Signs: 17:31 BP 216 / 95; Pulse 71; Resp 18; Temp 98.1; Pulse Ox 100% on R/A; Weight 79 kg; Height 5 cm10 ft. 1 in. ; Pain 9/10; 20:30 BP 238 / 125; Pulse 77; Resp 16; Pulse Ox 100% ; Pain 9/10; tm6 17:31 Body Mass Index 32.91 (79.00 kg, 154.94 cm) cm10 17:31 Pain Scale: Adult cm10 20:30 Pain Scale: Adult tm6 MDM: 17:35 Patient medically screened. cp 18:00 Differential diagnosis: gastritis, viral gastroenteritis, gastroenteritis, chronic cp pain, drug seeking behavior. 05/31 17:34 Order name: CBC with Diff cp 05/31 17:34 Order name: CMP cp 05/31 17:34 Order name: Lipase cp 05/31 17:34 Order name: Magnesium cp 05/31 21:17 Order name: CBC Smear Scan EDMS 05/31 20:01 Order name: Blood Pressure Recheck; Complete Time: 20:30 cp Administered Medications: 19:51 Not Given (Physician Discretion): [id number] mg IM once cp 20:29 Drug: Dicyclomine IM 20 mg IM once Route: IM; Site: left gluteus; pf1 20:29 Drug: metoCLOPramide IM 10 mg IM once Route: IM; Site: left gluteus; pf1 20:34 Drug: cloNIDine PO 0.2 mg PO once; if systolic pressure >190 Route: PO; tm6 20:37 Drug: Acetaminophen PO 1000 mg PO once Route: PO; tm6 Disposition: 06/01 08:59 Co-signature as Attending Physician, Dinesh Stallworth MD I reviewed the patient's care rn provided by the Advanced Practice Provider and agree with the diagnosis and treatment plan. Disposition Summary: 05/31/23 21:23 Eloped Notes: Disposition: after being seen by provider me1 Reason: unknown me1 Signatures: Dispatcher [employer] Dinesh Hoffmann MD MD rn Page, Corey, PA PA Jessica Bajwa RN RN pf1 Michelle Maddox RN RN cm10 Gina Berrios RN RN me1 Rizwan Yanez RN RN tm6
--- NOTE | 2023-05-31 21:24 | ER ---
Nurse's Notes [facility] Name: Cathi Zaldivar Age: 42 yrs Sex: Female : 1980 Arrival Date: 05/31/2023 Time: 16:48 Bed 10 Private MD: Diagnosis: Presentation: 05/31 17:31 Chief complaint: Patient states: Abdominal pain and nausea onset today. Pt also reports cm10 having sore throat. Coronavirus screen: Vaccine status: Patient reports being unvaccinated. Client denies travel out of the [place] in the last 14 days. Ebola Screen: Patient denies travel to an Ebola-affected area in the 21 days before illness onset. No symptoms or risks identified at this time. Initial Sepsis Screen: Does the patient meet any 2 criteria? No. Patient's initial sepsis screen is negative. Does the patient have a suspected source of infection? No. Patient's initial sepsis screen is negative. Risk Assessment: Do you want to hurt yourself or someone else? Patient reports no desire to harm self or others. Onset of symptoms was May 31, 2023. 17:31 Method Of Arrival: Wheelchair cm10 17:31 Acuity: JESSICA 3 cm10 Triage Assessment: 17:32 General: Appears in no apparent distress. comfortable, Behavior is calm, cooperative. cm10 Neuro: No deficits noted. Level of Consciousness is awake, alert, obeys commands, Oriented to person, place, time, situation. Respiratory: No deficits noted. Airway is patent Respiratory effort is even, unlabored, Respiratory pattern is regular, symmetrical. Historical: - Allergies: 17:30 ambien; cm10 17:30 Codeine; cm10 17:30 GABAPENTIN; cm10 17:30 GUAIFENESIN; cm10 17:30 Lisinopril; cm10 17:30 Morphine; cm10 17:30 Nitrofurantoin Macrocrystal; cm10 17:30 PENICILLINS; cm10 17:30 Prolixin; cm10 17:30 Seroquel; cm10 17:30 Tape; cm10 17:30 zolpidem tartrate; cm10 - PMHx: 17:30 cardiac arrest; chronic kidney disease; CHF; cyclic vomiting syndrome; Diabetes - cm10 NIDDM; Dialysis; m-w-f; ENCEPHALOPATHY; Hypertension; Gastroparesis; liver failure; PERIPHERAL NEUROPATHY; ibs; pseudo aneurysm R groin; Seizures; - PSHx: 17:30 2 heart stents; dialysis catheter R chest wall; section; eye removed; cm10 - Immunization history:: Adult Immunizations unknown. - Social history:: Smoking status: unknown. Screenin:37 [facility] ED Fall Risk Assessment (Adult) History of falling in the last 3 months, tm6 including since admission No falls in past 3 months (0 pts). Abuse screen: Denies threats or abuse. Denies injuries from another. Nutritional screening: No deficits noted. Tuberculosis screening: No symptoms or risk factors identified. Assessment: 20:37 General: Appears distressed, uncomfortable, Behavior is calm, cooperative. Pain: tm6 Complains of pain in abdomen Pain currently is 9 out of 10 on a pain scale. Neuro: Level of Consciousness is awake, alert, obeys commands, Oriented to person, place, time, situation. Cardiovascular: Capillary refill < 3 seconds Patient's skin is warm and dry. Rhythm is sinus rhythm. Respiratory: Airway is patent Respiratory effort is even, unlabored, Respiratory pattern is regular, symmetrical. GI: Abdomen is round non-distended, Reports Pain is 9 out of 10 on a pain scale. : No signs and/or symptoms were reported regarding the genitourinary system. EENT: No signs and/or symptoms were reported regarding the EENT system. Derm: No signs and/or symptoms reported regarding the dermatologic system. Musculoskeletal: No signs and/or symptoms reported regarding the musculoskeletal system. 21:00 Reassessment: Pt seen leaving ED with daughter. cm10 Vital Signs: 17:31 BP 216 / 95; Pulse 71; Resp 18; Temp 98.1; Pulse Ox 100% on R/A; Weight 79 kg; Height 5 cm10 ft. 1 in. ; Pain 9/10; 20:30 BP 238 / 125; Pulse 77; Resp 16; Pulse Ox 100% ; Pain 9/10; tm6 17:31 Body Mass Index 32.91 (79.00 kg, 154.94 cm) cm10 17:31 Pain Scale: Adult cm10 20:30 Pain Scale: Adult tm6 ED Course: 16:51 Patient arrived in ED. rg4 16:57 Luis Ruvalcaba PA is PHCP. cp 16:58 Dinesh Stallworth MD is Attending Physician. cp 17:32 Triage completed. cm10 17:32 Arm band placed on Patient placed in waiting room. cm10 19:48 Silverio Macias, RN is Primary Nurse. jb4 20:37 Patient has correct armband on for positive identification. Bed in low position. Call tm6 light in reach. Side rails up X2. Provided Education on: medications. Client placed on continuous cardiac and pulse oximetry monitoring. NIBP monitoring applied. hospital monitor on. Door closed. Noise minimized. Lights dimmed. Warm blanket given. 20:37 No provider procedures requiring assistance completed. tm6 Administered Medications: 19:51 Not Given (Physician Discretion): [id number] mg IM once cp 20:29 Drug: Dicyclomine IM 20 mg IM once Route: IM; Site: left gluteus; pf1 20:29 Drug: metoCLOPramide IM 10 mg IM once Route: IM; Site: left gluteus; pf1 20:34 Drug: cloNIDine PO 0.2 mg PO once; if systolic pressure >190 Route: PO; tm6 20:37 Drug: Acetaminophen PO 1000 mg PO once Route: PO; tm6 Medication: 20:37 VIS not applicable for this client. tm6 Outcome: 21:23 Patient left the ED. me1 Signatures: Luis Ruvalcaba PA PA cp Garcia, Rubi rg4 Silverio Macias, RN RN jb4 Jessica Da Silva RN RN pf1 Michelle Maddox RN RN cm10 Gina Berrios RN RN me1 Rizwan Yanez RN RN tm6
[2023-05-31 21:29] LABS: Albumin 3.1 g/dL (3.4-5.0); Bilirubin Total 0.8 mg/dL (0.2-1.0); Magnesium 1.7 mg/dL (1.6-2.4); Potassium 3.5 mEq/L (3.5-5.1); Protein, Total 6.6 g/dL (6.4-8.2)
[2023-05-31 21:36] VITALS: TEMP 98.1; O2SAT 100
[2023-05-31 21:38] VITALS: BP 238/125
[2023-05-31 22:49] LABS: White Blood Cell Scan OK (OK)
[2023-05-31 22:50] LABS: Anisocytosis 1+; Blood Morphology Comment NOTED (NOT SEEN); Platelet Estimate DECR; Teardrop Cell 1+
== END 2023-05-31 21:23 | disposition left against medical advice (07) ==
LOC: ER 16:48
DX: R11.2 Nausea with vomiting, unspecified (principal); R51.9 Headache, unspecified; E11.22 Type 2 diabetes mellitus with diabetic chronic kidney disease; I13.2 Hypertensive heart and chronic kidney disease with heart failure and with stage 5 chronic kidney disease, or end stage renal disease; N18.6 End stage renal disease; I50.9 Heart failure, unspecified; Z99.2 Dependence on renal dialysis; Z95.818 Presence of other cardiac implants and grafts; Z88.0 Allergy status to penicillin; Z88.5 Allergy status to narcotic agent; Z88.8 Allergy status to other drugs, medicaments and biological substances
CPT/HCPCS: 85025; 36415; 83735; 83690; 80053; 96372; 99284; J2765; J0500

== ENCOUNTER → 2023-07-19 | Emergency (ER) | payer MEDICARE, OTHER ==
[~2023-07-19] MED LIST: HYDROCODONE/APAP 10/325 TAB ONE
--- NOTE | 2023-07-19 07:32 | RAD REPORT ---
EXAM DESCRIPTION: RAD - Knee Left 3 View - 07/19/2023 6:41 am CLINICAL HISTORY: Left knee pain FINDINGS: No fracture or dislocation is seen. Diffuse edema within the spur subcutaneous tissues. Mild medial joint space narrowing
--- NOTE | 2023-07-19 07:35 | RAD REPORT ---
EXAM DESCRIPTION: CT - Knee Left Wo Con - 07/19/2023 7:16 am CLINICAL HISTORY: Left knee pain and swelling status post fall COMPARISON: X-ray July 19, 2023 TECHNIQUE: Computed axial tomography left obtained All CT scans are performed using dose optimization technique as appropriate and may include automated exposure control or mA/KV adjustment according to patient size. FINDINGS: No fracture seen No dislocation No significant joint effusion Edema within the subcutaneous tissues Mild lateral subluxation patella 8 millimeter sclerotic foci the medial femoral condyle IMPRESSION: No fracture seen Mild lateral subluxation patella 8 millimeter sclerotic foci medial femoral condyle nonspecific. Follow-up x-ray in 3 months is recomm ended to assess stability
--- NOTE | 2023-07-19 07:55 | EDPHYS ---
Physician Documentation [facility] Name: Cathi Zaldivar Age: 42 yrs Sex: Female : 1980 Arrival Date: 07/19/2023 Time: 06:05 Bed 3 Private MD: ED Physician Errol Elizalde HPI: 07/19 06:39 This 42 yrs old Female presents to ER via EMS with complaints of knee injury, rn fall. 06:39 The patient presents with an injury, pain. The complaints affect the left knee. Onset: rn The symptoms/episode began/occurred just prior to arrival. Modifying factors: The symptoms are alleviated by nothing. the symptoms are aggravated by movement. Severity of symptoms: At their worst the symptoms were moderate, in the emergency department the symptoms are unchanged. The patient has not experienced similar symptoms in the past. Patient reports has been having vision problems in the right eye 4 weeks, unknown etiology, was in the hospital for this, got distracted with the light and with her little vision fell and hit knee directly onto tile surface. No head injury. Denies any other injury other than the left knee and mild pain to left elbow. Patient states unable to stand on left knee.. Historical: - Allergies: 06:33 ambien; vc1 06:33 Codeine; vc1 06:33 GABAPENTIN; vc1 06:33 GUAIFENESIN; vc1 06:33 Lisinopril; vc1 06:33 Morphine; vc1 06:33 Nitrofurantoin Macrocrystal; vc1 06:33 PENICILLINS; vc1 06:33 Prolixin; vc1 06:33 Seroquel; vc1 06:33 Tape; vc1 06:33 zolpidem tartrate; vc1 - PMHx: 06:33 cardiac arrest; CHF; chronic kidney disease; cyclic vomiting syndrome; Diabetes - vc1 NIDDM; Dialysis; m-w-f; ENCEPHALOPATHY; Gastroparesis; Hypertension; ibs; liver failure; PERIPHERAL NEUROPATHY; pseudo aneurysm R groin; Seizures; - PSHx: 06:33 2 heart stents; section; dialysis catheter R chest wall; eye removed; vc1 - Immunization history:: Client reports having NOT received the Covid vaccine. - Social history:: Smoking status: Patient reports the use of cigarette tobacco products, 2-3 per day. - Family history:: not pertinent. - Hospitalizations: : No recent hospitalization is reported. ROS: 06:39 Constitutional: Negative for fever, chills, and weight loss, Eyes: Negative for injury, rn pain, redness, and discharge, Neck: Negative for injury, pain, and swelling, Cardiovascular: Negative for chest pain, palpitations, and edema, Respiratory: Negative for shortness of breath, cough, wheezing, and pleuritic chest pain, Abdomen/GI: Negative for abdominal pain, nausea, vomiting, diarrhea, and constipation, Back: Negative for injury and pain, MS/Extremity: Positive for left knee pain and left elbow pain Neuro: Negative for headache, weakness, numbness, tingling, and seizure, Exam: 06:39 Constitutional: This is a well developed, well nourished patient who is awake, alert, rn appears uncomfortable. Head/Face: Normocephalic, atraumatic. Neck: Negative for cervical tenderness Chest/axilla: No chest wall contusion or crepitus Respiratory: No increased work of breathing, no retractions or nasal flaring. Abdomen/GI: Soft, nontender Back: No spinal tenderness. MS/ Extremity: No cyanosis. Tender just inferior to left patella with mild swelling, no open wounds. No pain distal to this region or pain at hip or proximal femur. Vital Signs: 06:25 BP 152 / 78; Pulse 59; Resp 18; Temp 97.3; Pulse Ox 100% ; Weight 74 kg; Height 5 ft. 1 vc1 in. ; Pain 10/10; 07:35 BP 149 / 89; Pulse 58; Resp 18; Pulse Ox 98% on R/A; ph 06:25 Body Mass Index 30.83 (74.00 kg, 154.94 cm) vc1 06:25 Pain Scale: Adult vc1 MDM: 06:10 Patient medically screened. rn 07:58 Differential diagnosis: closed fracture, contusion. Data reviewed: vital signs, nurses rt notes, radiologic studies. Independent interpretation of the following test(s) in the Emergency Department X-Ray: My interpretation is No fracture seen on interpretation of x-ray images. Test considered but Not performed: Other Details No evidence of syncopal event, EKG, labs not indicated. Care significantly affected by the following chronic conditions: Chronic Kidney Disease. Counseling: I had a detailed discussion with the patient and/or guardian regarding the historical points, exam findings, and any diagnostic results supporting the discharge/admit diagnosis, radiology results, the need for outpatient follow up. Special discussion: I discussed with the patient/guardian in detail that at this point there is no indication for admission to the hospital. It is understood, however, that if the symptoms persist or worsen the patient needs to return immediately for re-evaluation. I discussed with the patient the need to follow-up with the PCP/specialist for the noted incidental finding on X-ray/CT scanning. Discussed findings of sclerotic lesion, instructed follow-up in several months for repeat x-ray.. ED course: Patient with no significant acute findings on x-ray and CT scan, no signs of fracture, no joint effusion. She presents with recurrent pain complaints. I believe that significant narcotic doses are moderate on the patient but the patient given prior history of overdose.. 07/19 06:29 Order name: XRAY Knee LEFT 3 view; Complete Time: 07:36 rn 07/19 07:08 Order name: Knee Left Wo Con; Complete Time: 07:36 EDMS 07/19 06:29 Order name: Knee Immobilizer; Complete Time: 09:06 rn 07/19 07:54 Order name: Crutches rt Administered Medications: 06:47 Drug: [place] PO 10 mg-325 mg 1 tabs PO once Route: PO; ha1 09:06 Follow up: Response: No adverse reaction ph Disposition Summary: 07/19/23 07:55 Discharge Ordered Notes: Location: Home rt Problem: new rt Symptoms: are unchanged rt Condition: Stable rt Diagnosis - Mechanical fall rt - Left knee pain rt Followup: rt - With: Private Physician - When: 2 - 3 days - Reason: Discharge Instructions: - Discharge Summary Sheet rt - Acute Knee Pain, Adult rt Forms: - Family Work Release ap3 - Medication Reconciliation Form rt - Thank You Letter rt - Antibiotic Education rt - Prescription Opioid Use rt - Patient Portal Instructions rt - Leadership Thank You Letter rt Prescriptions: - Tramadol 50 mg Oral tablet - take 1 tablet ORAL route every 8 hours as needed; 6 tablet; Refills: 0, Product rt Selection Permitted Signatures: Dispatcher [employer] [facility] Dinesh Stallworth MD MD rn Calcote, Vanessa, RN RN vc1 Yuliana Whaley RN RN ha1 Errol Elizalde MD MD rt Darleen Tucker RN ph Corrections: (The following items were deleted from the chart) 07:08 07:02 CT LEFT KNEE WO CONTRAST ordered. EDMS EDMS
--- NOTE | 2023-07-19 07:55 | ER ---
Nurse's Notes [facility] Name: Cathi Zaldivar Age: 42 yrs Sex: Female : 1980 Arrival Date: 07/19/2023 Time: 06:05 Bed 3 Private MD: Diagnosis: Mechanical fall;Left knee pain Presentation: 07/19 06:25 Chief complaint: Patient states: She was walking in her kitchen and right eye vision vc1 got blurry and she fell hurting right knee. Coronavirus screen: Vaccine status: Patient reports being unvaccinated. Client denies travel out of the [place] in the last 14 days. At this time, the client does not indicate any symptoms associated with coronavirus-19. Ebola Screen: Patient negative for fever greater than or equal to 101.5 degrees Fahrenheit, and additional compatible Ebola Virus Disease symptoms Patient denies exposure to infectious person. Patient denies travel to an Ebola-affected area in the 21 days before illness onset. No symptoms or risks identified at this time. Initial Sepsis Screen: Does the patient meet any 2 criteria? No. Patient's initial sepsis screen is negative. Does the patient have a suspected source of infection? No. Patient's initial sepsis screen is negative. Risk Assessment: Do you want to hurt yourself or someone else? Patient reports no desire to harm self or others. Onset of symptoms was July 19, 2023. 06:25 Method Of Arrival: EMS: [facility] 1 06:25 Acuity: JESSICA 4 vc1 Triage Assessment: 06:34 General: Appears in no apparent distress. uncomfortable, Behavior is cooperative, vc1 crying. Pain: Complains of pain in left knee Pain does not radiate. Pain currently is 10 out of 10 on a pain scale. Noted to be crying, grimacing, resistant to movement. EENT: No deficits noted. No signs and/or symptoms were reported regarding the EENT system. Neuro: No deficits noted. Cardiovascular: No deficits noted. Respiratory: Airway is patent Respiratory effort is even, unlabored, Respiratory pattern is regular, symmetrical. GI: No deficits noted. No signs and/or symptoms were reported involving the gastrointestinal system. : No deficits noted. No signs and/or symptoms were reported regarding the genitourinary system. Derm: No deficits noted. No signs and/or symptoms reported regarding the dermatologic system. Musculoskeletal: Reports pain in left knee unable to move left knee. Historical: - Allergies: 06:33 ambien; vc1 06:33 Codeine; vc1 06:33 GABAPENTIN; vc1 06:33 GUAIFENESIN; vc1 06:33 Lisinopril; vc1 06:33 Morphine; vc1 06:33 Nitrofurantoin Macrocrystal; vc1 06:33 PENICILLINS; vc1 06:33 Prolixin; vc1 06:33 Seroquel; vc1 06:33 Tape; vc1 06:33 zolpidem tartrate; vc1 - PMHx: 06:33 cardiac arrest; CHF; chronic kidney disease; cyclic vomiting syndrome; Diabetes - vc1 NIDDM; Dialysis; m-w-f; ENCEPHALOPATHY; Gastroparesis; Hypertension; ibs; liver failure; PERIPHERAL NEUROPATHY; pseudo aneurysm R groin; Seizures; - PSHx: 06:33 2 heart stents; section; dialysis catheter R chest wall; eye removed; vc1 - Immunization history:: Client reports having NOT received the Covid vaccine. - Social history:: Smoking status: Patient reports the use of cigarette tobacco products, 2-3 per day. - Family history:: not pertinent. - Hospitalizations: : No recent hospitalization is reported. Screenin:36 [facility] ED Fall Risk Assessment (Adult) History of falling in the last 3 months, vc1 including since admission Yes- fall prone (multiple falls) (3 pts) Confusion or Disorientation No (0 pts) Intoxicated or Sedated No (0 pts) Impaired Gait Yes (1 pt) Mobility Assist Device Used Yes (1 pt) Altered Elimination No (0 pt) Score/Fall Risk Level 0 - 2 = Low Risk Oriented to surroundings, Maintained a safe environment, Educated pt \\T\\ family on fall prevention, incl call for assistance when getting out of bed. Abuse screen: Denies threats or abuse. Nutritional screening: No deficits noted. Tuberculosis screening: No symptoms or risk factors identified. Assessment: 06:10 Reassessment: see triage assessment. ha1 07:15 Reassessment: Pt taken for CT scan via stretcher. ph 07:40 Reassessment: Patient appears in no apparent distress at this time. Patient and/or ph family updated on plan of care and expected duration. Pain level reassessed. Patient is alert, oriented x 3, equal unlabored respirations, skin warm/dry/pink. Pt crying, requesting additional pain medication, ERP aware of request. 07:55 Reassessment: ERP at bedside to speak w/ pt about results, informed pt that he would ph not be administering further narcotics and offered to d/c pt home w/ prescription for Tramadol. 08:35 Reassessment: Pt's family members x 3 at bedside,mother began yelling at staff, " She ph is in pain, this is ridiculous. There has too be something wrong with her leg if she's hurting that much." Explained that x-ray and CT had been done which were both negative for fracture and that pt would need to follow up outpatient for MRI if pain continued. Pt then began yelling, " That's bullshit you could do an MRI here, they just don't want to." then requested that nurse leave room so pt can change clothing. Gina shields called overhead. 08:45 Reassessment: Entered room for d/c, offered to place rambo wrap and knee immobilizer to ph leg which pt accepted, family at bedside appeared to be calmer, explained to them that pt would need to follow up w/ orthopedics for further evaluation, provided a list of local orthopedic doctors, pt stated that she already had one that she would follow u p with. Assisted pt into wheelchair and out to vehicle w/ family without further incident. Vital Signs: 06:25 BP 152 / 78; Pulse 59; Resp 18; Temp 97.3; Pulse Ox 100% ; Weight 74 kg; Height 5 ft. 1 vc1 in. ; Pain 10/10; 07:35 BP 149 / 89; Pulse 58; Resp 18; Pulse Ox 98% on R/A; ph 06:25 Body Mass Index 30.83 (74.00 kg, 154.94 cm) vc1 06:25 Pain Scale: Adult vc1 ED Course: 06:10 Patient arrived in ED. lg3 06:10 Dinesh Stallworth MD is Attending Physician. rn 06:33 Triage completed. vc1 06:36 Arm band placed on left wrist. vc1 06:37 Patient has correct armband on for positive identification. Bed in low position. Call vc1 light in reach. Pulse ox on. NIBP on. 06:42 XRAY Knee LEFT 3 view In Process Unspecified. EDMS 06:56 Attending Physician role handed off by Dinesh Stallworth MD rt 06:56 Errol Elizalde MD is Attending Physician. rt 07:15 Darleen Tucker RN is Primary Nurse. ph 07:18 Knee Left Wo Con In Process Unspecified. EDMS 08:45 Rambo wrap to left knee Knee immobilizer applied on left knee. ph 09:07 No provider procedures requiring assistance completed. Patient did not have IV access ph during this emergency room visit. Administered Medications: 06:47 Drug: [place] PO 10 mg-325 mg 1 tabs PO once Route: PO; ha1 09:06 Follow up: Response: No adverse reaction ph Medication: 06:37 VIS not applicable for this client. vc1 Outcome: 07:55 Discharge ordered by . rt 09:07 Patient left the ED. ph 09:07 Discharged to home via wheelchair, with family, ph 09:07 Condition: good 09:07 Discharge instructions given to patient, family, Instructed on discharge instructions, follow up and referral plans. medication usage, Demonstrated understanding of instructions, follow-up care, medications, Prescriptions given X 1, Signatures: Dispatcher [employer] EDMS Dinesh Stallworth MD MD rn Hall, Patricia, RN RN ph Able, TABATHA Edmondson RN lg3 Maria M Gonzalez RN RN 1 Yuliana Whaley RN RN ha1 Errol Elizalde MD MD rt
[2023-07-19 09:20] VITALS: BP 152/78; TEMP 97.3; O2SAT 100
== END ==
LOC: ER 06:05
DX: M25.562 Pain in left knee (principal); W18.30XA Fall on same level, unspecified, initial encounter; E11.22 Type 2 diabetes mellitus with diabetic chronic kidney disease; I13.2 Hypertensive heart and chronic kidney disease with heart failure and with stage 5 chronic kidney disease, or end stage renal disease; N18.6 End stage renal disease; I50.9 Heart failure, unspecified; Z99.2 Dependence on renal dialysis; Z88.0 Allergy status to penicillin; Z88.5 Allergy status to narcotic agent; Z88.8 Allergy status to other drugs, medicaments and biological substances; Z91.048 Other nonmedicinal substance allergy status; Z72.0 Tobacco use; Z28.310 Unvaccinated for COVID-19; Z95.818 Presence of other cardiac implants and grafts
CPT/HCPCS: 73700

== ENCOUNTER 2023-08-25 22:16 | Inpatient (IN) | payer MEDICARE, OTHER ==
[2023-08-26] MEDS ORDERED: ONDANSETRON 4 MG/2 ML VIAL ONE ×2 (01:47→14:45)
[2023-08-26] MEDS ORDERED: HYDRALAZINE HCL 20 MG/ML VIAL ONE (01:47)
[2023-08-26] MEDS ORDERED: CEFTRIAXONE 1000 MG/VIAL ONE (01:47)
[2023-08-26] MEDS ORDERED: FENTANYL CITR 100 MCG/2 ML ONE ×3 (01:48→13:35)
[2023-08-26] MEDS ORDERED: METOCLOPRAMIDE 10 MG/2mL INJ ONE (01:48)
[2023-08-26] MEDS ORDERED: NA CHLORIDE 0.9% 50 ML ONE (01:50)
[2023-08-26] MEDS ORDERED: METRONIDAZOLE 500mg IVPB 500 MG/100 ML BAG IV ONE (01:50)
[2023-08-26] MEDS ORDERED: FAMOTIDINE 20 MG/2 ML VIAL IV ONE (01:50)
[2023-08-26 02:42] LABS: SARS-CoV-2 Antigen CONTROL BLUE LINE VIS/BG OK; SARS-CoV-2 Antigen Rapid Res Negative (Negative)
[2023-08-26 02:46] LABS: Absolute Lymphocytes (CBC) 1.2 K/uL (0.7-4.9); Absolute Monocytes 0.3 K/uL (0.1-1.3); Absolute Neutrophil 1.4 K/uL (1.8-8.0); Basophils % 1.4 % (0-1.3); Eosinophils % 1.4 % (0-4.4); Hematocrit 29.4 % (36.0-45.0); Hemoglobin 9.7 g/dL (12.0-15.0); Lymphocytes % 39.2 % (15.3-44.8); MCH 29.4 pg (27.0-35.0); MCHC 33.1 g/dL (32.0-36.0); MCV 88.6 fL (80-100); Monocytes % 9.7 % (3.3-12.3); Neutrophils % 48.3 % (41.7-73.7); Nucleated Red Blood Cells % 0.1 % (0-0); Platelets 69 thou/uL (152-406); RBC Red Blood Cell Count 3.32 M/uL (3.86-4.86); Red Cell Distribution Width 19.7 % (12.1-15.2)
[2023-08-26] MEDS ORDERED: DIPHENHYDRAMINE 50 MG/ML VIAL ONE ×2 (02:47→04:14)
[2023-08-26 02:58] LABS: Albumin 3.4 g/dL (3.4-5.0); Albumin/Globulin Ratio 0.9 (1.1-1.8); Anion Gap 9.9 mEq/L (5.0-15.0); Globulin 3.6 g/dL (2.3-3.5); Potassium 2.9 mEq/L (3.5-5.1)
--- NOTE | 2023-08-26 03:21 | EDPHYS ---
Physician Documentation [facility] Name: Cathi Zaldivar Age: 42 yrs Sex: Female : 1980 Arrival Date: 08/25/2023 Time: 22:16 Bed 8 Private MD: Jose Miguel Morin ED Physician Avel Kelley HPI: 08/24 22:20 This 42 yrs old Female presents to ER via Unassigned with complaints of sp4 Abdominal Pain, Vomiting. 08/25 02:07 82-year-old female past medical history CHF chronic kidney disease diabetes sp4 dialysis Wednesday encephalopathy gastroparesis hypertension history of peripheral neuropathy and seizures, presents to emergency room with acute onset of abdominal pain nausea vomiting. Patient's medications include furosemide, buspirone, amlodipine, aspirin, hydralazine, Reglan, calcium, doxazosin, losartan, pregabalin, atenolol, Lamictal, loperamide, vitamin D. Historical: - Allergies: 08/24 22:36 zolpidem tartrate; tl4 22:36 Tape; tl4 22:36 Codeine; tl4 22:36 GABAPENTIN; tl4 22:36 GUAIFENESIN; tl4 22:36 Lisinopril; tl4 22:36 Morphine; tl4 22:36 Nitrofurantoin Macrocrystal; tl4 22:36 PENICILLINS; tl4 22:36 Prolixin; tl4 22:36 Seroquel; tl4 08/25 03:53 Fentanyl; rv - PMHx: 08/24 22:32 cardiac arrest; Seizures; chronic kidney disease; cyclic vomiting syndrome; tl4 ENCEPHALOPATHY; Gastroparesis; Hypertension; CHF; Diabetes - NIDDM; Dialysis; m-w-f; pseudo aneurysm R groin; PERIPHERAL NEUROPATHY; liver failure; Depressive disorder; Anxiety; Schizophrenia; Cerebrovascular accident; Irritable bowel syndrome; 22:37 Lymphedema; tl4 - PSHx: 22:32 2 heart stents; section; dialysis catheter R chest wall; eye removed; tl4 - Immunization history:: Adult Immunizations unknown. - Social history:: Smoking status: Patient reports the use of cigarette tobacco products, smokes one-half pack cigarettes per day. ROS: 08/25 02:10 Constitutional: Negative for fever, chills, and weight loss, positive for abdominal sp4 pain nausea and vomiting All other systems are negative, Exam: 02:10 Constitutional: This is a well developed, well nourished patient who is awake, alert, sp4 mild distress to moderate distress secondary to pain Head/Face: Normocephalic, atraumatic. Eyes: Pupils equal round and reactive to light, extra-ocular motions intact. Lids and lashes normal. Conjunctiva and sclera are not injected. Cornea within normal limits. Periorbital areas with no swelling, redness, or edema. ENT: Nares patent. No nasal discharge, no septal abnormalities noted. Tympanic membranes are normal and external auditory canals are clear. Oropharynx with no redness, swelling, or masses, exudates, or evidence of obstruction, uvula midline. Mucous membranes moist. Neck: Trachea midline, no thyromegaly or masses palpated, and no cervical lymphadenopathy. Supple, full range of motion without nuchal rigidity, or vertebral point tenderness. Chest/axilla: Normal chest wall appearance and motion. Nontender with no deformity. No lesions are appreciated. Cardiovascular: Regular rate and rhythm with a normal S1 and S2. No gallops, murmurs, or rubs. Normal PMI, no JVD. No pulse deficits. Respiratory: Lungs have equal breath sounds bilaterally, clear to auscultation and percussion. No rales, rhonchi or wheezes noted. No increased work of breathing, no retractions or nasal flaring. Abdomen/GI: Soft, with normal bowel sounds. No distension or tympany. No guarding , positive upper abdominal tenderness including right upper tenderness Back: No spinal tenderness. No costovertebral tenderness. Skin: Warm, dry with normal turgor. Normal color with no rashes, no lesions, and no evidence of cellulitis. MS/ Extremity: Pulses equal, no cyanosis. Neurovascular intact. Full, normal range of motion. Neuro: Awake and alert, GCS 15, oriented to person, place, time, and situation. Cranial nerves II-XII grossly intact. Motor strength 5/5 in all extremities. Sensory grossly intact. Psych: Awake, alert, with orientation to person, place and time. Behavior, mood, and affect are within normal limits 03:59 ECG was reviewed by the Attending Physician. EKG 03:45 normal sinus rhythm at the sp4 rate of 91, prolonged QT Vital Signs: 08/24 22:30 BP 193 / 100; Pulse 77; Resp 18; Temp 98.5(O); Pulse Ox 99% on R/A; Weight 77.4 kg; tl4 Height 5 ft. 1 in. ; Pain 9/10; 08/25 02:30 BP 198 / 96; Pulse 86; Resp 20; Pulse Ox 100% ; rv 03:05 BP 169 / 94; Pulse 92; Resp 18; Pulse Ox 98% on R/A; rv 08/24 22:30 Body Mass Index 32.24 (77.40 kg, 154.94 cm) tl4 08/24 22:30 Pain Scale: Adult tl4 MDM: 08/24 22:23 Patient medically screened. sp4 23:53 ED course: DLP: 870 mGy*cm COMPARISON: CT abdomen and pelvis dated 03/08/2023. FINDINGS: sp4 LUNG BASES: Unremarkable. No mass. No consolidation. HEART: Cardiomegaly with small pericardial effusion. ABDOMEN: LIVER: Hepatic steatosis. GALLBLADDER AND BILE DUCTS: Cholelithiasis with gallbladder wall thickening, pericholecystic fluid and intrahepatic ductal dilatation. PANCREAS: Unremarkable. No ductal dilation. SPLEEN: Unremarkable. No splenomegaly. ADRENALS: Unremarkable. No mass. KIDNEYS AND URETERS: Bilateral renal atrophy. No obstructing stones. No hydronephrosis. STOMACH AND BOWEL: Unremarkable. No obstruction. No mucosal thickening. PELVIS: APPENDIX: No findings to suggest acute appendicitis. BLADDER: Bladder is decompressed. No stones. REPRODUCTIVE: Unremarkable as visualized. ABDOMEN and PELVIS: INTRAPERITONEAL SPACE: Unremarkable. No free air. No significant fluid collection. BONES/JOINTS: No acute fracture. No dislocation. SOFT TISSUES: Unremarkable. VASCULATURE: Advanced vascular calcifications. No abdominal aortic aneurysm. LYMPH NODES: Unremarkable. No enlarged lymph nodes. IMPRESSION: 1. Cholelithiasis with gallbladder wall thickening, pericholecystic fluid and intrahepatic ductal dilatation. Findings concerning for acute cholecystitis. Right upper quadrant ultrasound may be of diagnostic use. 2. Hepatic steatosis. Electronically signed by: Raul Fallon DO 08/25/2023 11:32. 08/25 01:01 ED course: EXAM: US Abdomen Limited, Gallbladder CLINICAL HISTORY: The patient is 42 sp4 years old and is Female; ABD PAIN TECHNIQUE: Real-time ultrasound of the right upper quadrant with image documentation. COMPARISON: No relevant prior studies available. FINDINGS: Gallbladder: Cholelithiasis. There is gallbladder wall thickening. There is pericholecystic fluid. Sonographic Garcia's sign is reportedly positive. Gallbladder wall measures up to 5 mm in thickness. Common bile duct: Common bile duct is at the upper limit of normal in diameter. No stones. IMPRESSION: Cholelithiasis. There is gallbladder wall thickening. There is pericholecystic fluid. Sonographic Garcia's sign is reportedly positive.. 02:07 Differential diagnosis: Nonspecific abd pain, gastritis, cholecystitis, pancreatitis, sp4 diverticulitis, viral gastroenteritis, gastroenteritis. Data reviewed: vital signs, nurses notes, old medical records, lab test result(s), radiologic studies, CT scan, ultrasound. Consideration of Admission/Observation Patient was admitted/placed on observation. Escalation of care including admission/observation considered. 03:18 Management of patient was discussed with the following: Hospitalist: Bay BURNS. sp4 Avionics Mechanic: Lea BURNS . ED course: Patient has signs of acute cholecystitis based on CT and ultrasound report. Patient was discussed with Dr. Tate with general surgery who requested n.p.o.. Patient was also discussed with admitting hospitalist who agreed to admit patient will order troponin and EKG for cardiac clearance. Also we will order SARS COVID-19 screen . 08/24 22:39 Order name: CBC with Diff; Complete Time: 04:53 sp4 08/24 22:39 Order name: CMP; Complete Time: 03:09 sp4 08/24 22:39 Order name: Lipase; Complete Time: 03:09 sp4 08/24 22:40 Order name: SARS RAPID; Complete Time: 02:45 sp4 08/24 22:40 Order name: Influenza Screen (a \\T\\ B); Complete Time: 02:45 sp4 08/25 02:55 Order name: CBC Smear Scan; Complete Time: 04:53 EDMS 08/25 03:11 Order name: Troponin High Sensitivity; Complete Time: 03:43 sp4 08/25 03:34 Order name: Basic Metabolic Panel EDMS 08/25 03:34 Order name: Basic Metabolic Panel EDMS 08/25 03:34 Order name: Basic Metabolic Panel EDMS 08/25 03:34 Order name: CBC with Automated Diff EDMS 08/25 03:34 Order name: CBC with Automated Diff EDMS 08/25 03:34 Order name: CBC with Automated Diff EDMS 08/24 22:39 Order name: CT Abd/Pelvis - Without Contrast sp4 08/24 23:54 Order name: US Abdomen Limited sp4 08/25 03:11 Order name: EKG; Complete Time: 03:12 sp4 08/24 22:39 Order name: IV Saline Lock; Complete Time: 02:43 sp4 08/24 22:39 Order name: Labs collected and sent; Complete Time: 02:43 sp4 08/25 03:12 Order name: EKG - Nurse/Tech; Complete Time: 04:01 sp4 08/25 03:13 Order name: NPO; Complete Time: 03:14 sp4 EC:59 Rate is 91 beats/min. Rhythm is regular, Normal Sinus Rhythm. QRS [place] is Normal. MI sp4 interval is normal. QRS interval is normal. QT interval is prolonged. No Q waves. T waves are Normal. No ST changes noted. Clinical impression: No evidence of ischemia. Interpreted by me. Reviewed by me. Administered Medications: 02:42 Drug: fentaNYL (PF) IVP 25 mcg IVP once Route: IVP; Site: left forearm; rv 02:42 Drug: Rocephin - Rocephin (cefTRIAXone) IVPB 1 grams IVPB once over 30 mins; (mix in 50 rv mL NS) Route: IVPB; Infused Over: 30 mins; Site: left forearm; 02:42 Drug: metroNIDAZOLE IVPB 500 mg 100 ml IVPB at 200 ml/hr once over 30 mins Volume: 100 rv ml; Route: IVPB; Rate: 200 ml/hr; Infused Over: 30 mins; Site: left forearm; 02:43 Drug: Famotidine IVP 20 mg IVP once; dilute with 10 mL 0.9% NaCl; give over 2 minutes rv Route: IVP; Site: left forearm; 02:43 Drug: Ondansetron IVP 4 mg IVP once; over 2 minutes Route: IVP; Site: left forearm; rv 02:49 Drug: diphenhydrAMINE IVP 25 mg IVP once Route: IVP; Site: left forearm; rv 03:44 Drug: metoCLOPramide IVP 20 mg IVP once; over 15 mins Route: IVP; Site: left forearm; jw7 03:44 Drug: fentaNYL (PF) IVP 25 mcg IVP once Route: IVP; Site: left forearm; jw7 04:29 Drug: diphenhydrAMINE IVP 25 mg IVP once Route: IVP; Site: left forearm; jw7 07:12 Not Given (Hemodynamic Parameters): [id number] mg IVP once jw7 10:59 Not Given (not given by retail shift supervisor): [id number] mg IM once kc6 Disposition Summary: 08/26/23 03:20 Hospitalization Ordered Notes: Hospitalization Status: Inpatient Admission sp4 Provider: Elvin Hermosillo sp4 Condition: Stable sp4 Problem: new sp4 Symptoms: have improved sp4 Bed/Room Type: Standard sp4 Location: [facility] ER HOLD(08/26/23 05:35) vc1 Room Assignment: ERHOLD-(08/26/23 05:35) vc1 Diagnosis - Acute cholecystitis sp4 - Intractable abdominal pain, intractable vomiting, acute cholecystitis with sp4 cholelithiasis Forms: - Medication Reconciliation Form sp4 - SBAR form sp4 - Leadership Thank You Letter sp4 Signatures: Dispatcher [employer] EDMS Isaac Gerardo RN RN rv Maria M Gonzalez RN RN vc1 Katherine Mueller RN RN jw7 Potepalov, Sergey, MD MD sp4 Jason Khanna RN RN tl4 Lucero Jones RN kc6 Corrections: (The following items were deleted from the chart) 08/24 22:37 22:32 PMHx: ibs; tl4 tl4 22:37 22:36 Allergies: ambien; tl4 tl4 22:37 22:36 PMHx: "mental problems"; tl4 tl4 08/25 05:35 03:20 Telemetry/MedSurg (Inpatient) sp4 vc1 05:35 03:20 sp4 vc1
--- NOTE | 2023-08-26 03:21 | ER ---
Nurse's Notes [facility] Name: Cathi Zaldivar Age: 42 yrs Sex: Female : 1980 Arrival Date: 08/25/2023 Time: 22:16 Bed 8 Private MD: Jose Miguel Morin Diagnosis: Acute cholecystitis;Intractable abdominal pain, intractable vomiting, acute cholecystitis with cholelithiasis Presentation: 08/24 22:30 Chief complaint: Patient states: Pt c/o sudden onset of umbilical and left side tl4 abdominal pain with nausea, vomiting, diarrhea at 2030. Pt had dialysis today without issues. Coronavirus screen: At this time, the client does not indicate any symptoms associated with coronavirus-19. Ebola Screen: No symptoms or risks identified at this time. Initial Sepsis Screen: Does the patient meet any 2 criteria? No. Patient's initial sepsis screen is negative. Does the patient have a suspected source of infection? No. Patient's initial sepsis screen is negative. Risk Assessment: Do you want to hurt yourself or someone else? Patient reports no desire to harm self or others. Onset of symptoms was August 25, 2023 at 20:30. 22:30 Method Of Arrival: Wheelchair tl4 22:30 Acuity: JESSICA 3 tl4 Triage Assessment: 22:37 General: Appears distressed, uncomfortable, ill, Behavior is cooperative. Pain: tl4 Complains of pain in abdomen. EENT: No deficits noted. No signs and/or symptoms were reported regarding the EENT system. Neuro: No deficits noted. Cardiovascular: No deficits noted. Respiratory: No deficits noted. GI: Reports lower abdominal pain, upper abdominal pain, nausea, vomiting. : No deficits noted. No signs and/or symptoms were reported regarding the genitourinary system. Historical: - Allergies: 22:36 zolpidem tartrate; tl4 22:36 Tape; tl4 22:36 Codeine; tl4 22:36 GABAPENTIN; tl4 22:36 GUAIFENESIN; tl4 22:36 Lisinopril; tl4 22:36 Morphine; tl4 22:36 Nitrofurantoin Macrocrystal; tl4 22:36 PENICILLINS; tl4 22:36 Prolixin; tl4 22:36 Seroquel; tl4 08/25 03:53 Fentanyl; rv - PMHx: 08/24 22:32 cardiac arrest; Seizures; chronic kidney disease; cyclic vomiting syndrome; tl4 ENCEPHALOPATHY; Gastroparesis; Hypertension; CHF; Diabetes - NIDDM; Dialysis; m-w-f; pseudo aneurysm R groin; PERIPHERAL NEUROPATHY; liver failure; Depressive disorder; Anxiety; Schizophrenia; Cerebrovascular accident; Irritable bowel syndrome; 22:37 Lymphedema; tl4 - PSHx: 22:32 2 heart stents; section; dialysis catheter R chest wall; eye removed; tl4 - Immunization history:: Adult Immunizations unknown. - Social history:: Smoking status: Patient reports the use of cigarette tobacco products, smokes one-half pack cigarettes per day. Screenin/07 02:50 [facility] ED Fall Risk Assessment (Adult) History of falling in the last 3 months, rv including since admission No falls in past 3 months (0 pts) Score/Fall Risk Level 0 - 2 = Low Risk Oriented to surroundings, Maintained a safe environment, Educated pt \\T\\ family on fall prevention, incl call for assistance when getting out of bed, Assessed \\T\\ reinforced patient's understanding of fall precautions. Abuse screen: Denies threats or abuse. Denies injuries from another. Nutritional screening: No deficits noted. Tuberculosis screening: No symptoms or risk factors identified. Assessment: 02:00 General: Appears in no apparent distress. uncomfortable, ill, Behavior is calm, jw7 cooperative, crying, restless. 02:00 Pain: Complains of pain in abdomen Pain does not radiate. Pain currently is 8 out of 10 jw7 on a pain scale. Quality of pain is described as sharp, Pain began Is continuous. Neuro: Level of Consciousness is awake, alert, obeys commands, Oriented to person, place, time, situation. Cardiovascular: Heart tones S1 S2 present Capillary refill < 3 seconds Clubbing of nail beds is absent JVD is absent Patient's skin is warm and dry. Respiratory: Airway is patent Trachea midline Respiratory effort is even, unlabored, Respiratory pattern is regular, symmetrical, Breath sounds are clear bilaterally. GI: Abdomen is round non-distended, Bowel sounds present X 4 quads. Abd is soft and non tender X 4 quads. : No deficits noted. No signs and/or symptoms were reported regarding the genitourinary system. EENT: No deficits noted. No signs and/or symptoms were reported regarding the EENT system. Derm: Skin is intact, is healthy with good turgor, Skin is dry, Skin is normal, Skin temperature is warm. Musculoskeletal: Circulation, motion, and sensation intact. Range of motion: intact in all extremities. 02:51 GI: Bowel sounds present X 4 quads. Abd is soft and non tender X 4 quads. rv 03:00 Reassessment: Patient appears in no apparent distress at this time. No changes from [facility] previously documented assessment. Patient and/or family updated on plan of care and expected duration. Pain level reassessed. Patient is alert, oriented x 3, equal unlabored respirations, skin warm/dry/pink. 04:00 Reassessment: Patient appears in no apparent distress at this time. No changes from [facility] previously documented assessment. Patient and/or family updated on plan of care and expected duration. Pain level reassessed. Patient is alert, oriented x 3, equal unlabored respirations, skin warm/dry/pink. 05:00 Reassessment: Patient appears in no apparent distress at this time. No changes from [facility] previously documented assessment. Patient and/or family updated on plan of care and expected duration. Pain level reassessed. Patient is alert, oriented x 3, equal unlabored respirations, skin warm/dry/pink. 06:00 Reassessment: Patient appears in no apparent distress at this time. Patient and/or jw7 family updated on plan of care and expected duration. Pain level reassessed. Patient is alert, oriented x 3, equal unlabored respirations, skin warm/dry/pink. Patient states symptoms have improved. 14:03 Reassessment: Reassessment: Report given to Lucero Palumbo RN, to be taken to OR. nj1 Vital Signs: 08/24 22:30 BP 193 / 100; Pulse 77; Resp 18; Temp 98.5(O); Pulse Ox 99% on R/A; Weight 77.4 kg; tl4 Height 5 ft. 1 in. ; Pain 9/10; 08/25 02:30 BP 198 / 96; Pulse 86; Resp 20; Pulse Ox 100% ; rv 03:05 BP 169 / 94; Pulse 92; Resp 18; Pulse Ox 98% on R/A; rv 08/24 22:30 Body Mass Index 32.24 (77.40 kg, 154.94 cm) tl4 03/06 22:30 Pain Scale: Adult tl4 ED Course: 08/24 22:18 Patient arrived in ED. mr 22:18 Jose Miguel Morin DO is Private Physician. mr 22:20 Avel Kelley MD is Attending Physician. sp4 22:32 Triage completed. tl4 22:32 Arm band placed on right wrist. tl4 23:10 CT Abd/Pelvis - Without Contrast In Process Unspecified. EDMS 03 00:17 US Abdomen Limited In Process Unspecified. EDMS 02:00 Provided Education on: use of call light. jw7 02:15 Inserted saline lock: 20 gauge in left forearm, using aseptic technique. Blood rv collected. 02:50 No provider procedures requiring assistance completed. rv 02:50 Patient admitted, IV remains in place. rv 02:51 Patient has correct armband on for positive identification. Client placed on continuous rv cardiac and pulse oximetry monitoring. NIBP monitoring applied. monitoring tech on. 03:19 Elvin Hermosillo MD is Hospitalizing Provider. sp4 04:01 EKG done, by ED staff, reviewed by Avel Kelley MD. jw7 07:12 Helen Justin, RN is Primary Nurse. kd3 Administered Medications: 02:42 Drug: fentaNYL (PF) IVP 25 mcg IVP once Route: IVP; Site: left forearm; rv 02:42 Drug: Rocephin - Rocephin (cefTRIAXone) IVPB 1 grams IVPB once over 30 mins; (mix in 50 rv mL NS) Route: IVPB; Infused Over: 30 mins; Site: left forearm; 02:42 Drug: metroNIDAZOLE IVPB 500 mg 100 ml IVPB at 200 ml/hr once over 30 mins Volume: 100 rv ml; Route: IVPB; Rate: 200 ml/hr; Infused Over: 30 mins; Site: left forearm; 02:43 Drug: Famotidine IVP 20 mg IVP once; dilute with 10 mL 0.9% NaCl; give over 2 minutes rv Route: IVP; Site: left forearm; 02:43 Drug: Ondansetron IVP 4 mg IVP once; over 2 minutes Route: IVP; Site: left forearm; rv 02:49 Drug: diphenhydrAMINE IVP 25 mg IVP once Route: IVP; Site: left forearm; rv 03:44 Drug: metoCLOPramide IVP 20 mg IVP once; over 15 mins Route: IVP; Site: left forearm; jw7 03:44 Drug: fentaNYL (PF) IVP 25 mcg IVP once Route: IVP; Site: left forearm; jw7 04:29 Drug: diphenhydrAMINE IVP 25 mg IVP once Route: IVP; Site: left forearm; jw7 07:12 Not Given (Hemodynamic Parameters): [id number] mg IVP once jw7 10:59 Not Given (not given by night club manager): [id number] mg IM once kc6 Medication: 02:51 VIS not applicable for this client. rv Outcome: 03:20 Decision to Hospitalize by Provider. sp4 07:12 Admitted to ER Hold. Please see [facility] for further documentation. jw7 07:12 Condition: stable 07:12 Instructed on the need for admit, Demonstrated understanding of instructions, 14:27 Patient left the ED. eb Signatures: Dispatcher [employer] EDNM ReyesAdela hussein, Arnaldo Mcintosh mr LazaroMarquita eb Isaac Gerardo, RN RN rv Helen Justin, RN RN kd3 Katherine Mueller, RN RN jw7 Avel Kelley MD MD sp4 Franca Williamson RN RN nj1 Jason Khanna RN RN tl4 Lucero Jones RN kc6 Corrections: (The following items were deleted from the chart) 08/24 22:37 22:32 PMHx: ibs; tl4 tl4 22:37 22:36 Allergies: ambien; tl4 tl4 22:37 22:36 PMHx: "mental problems"; tl4 tl4 08/25 14:10 14:03 Reassessment: nj1 ken
--- NOTE | 2023-08-26 03:34 | P.HP ---
Certification for Inpatient Patient admitted to: Observation With expected LOS: <2 Midnights Practitioner: I am a practitioner with admitting privileges, knowledge of patient current condition, hospital course, and medical plan of care. Services: Services provided to patient in accordance with Admission requirements found in Title 42 Section 412.3 of the Code of Federal Regulations Patient History Date of Service: 08/26/23 Reason for admission: Cholecystitis History of Present Illness: 42-year-old female patient with medical history significant for ESRD on dialysis, hypertension, hyperlipidemia was evaluated for episode of abdominal pain. Pain is reported to have started acutely and imaging studies done in the ED was significantly concerning for cholecystitis. She was admitted for surgeon evaluation for possible cholecystectomy. Her resident service coordinator was consulted for management of dialysis needs while admitted. Allergies zolpidem tartrate [From Ambien] Allergy (Intermediate, Verified 10/17/16 23:08) Itching/Hives/Rash codeine [Codeine] Allergy (Verified 10/17/16 23:08) Hives fluphenazine enanthate [From Prolixin] Allergy (Verified 10/17/16 23:08) ARM NUMBNESS fluphenazine HCl [From Prolixin] Allergy (Verified 10/17/16 23:08) ARM NUMBNESS guaifenesin [From Prolex D] Allergy (Verified 10/17/16 23:08) Hives lisinopril Allergy (Verified 04/21/17 10:26) Anaphylaxis morphine Allergy (Verified 10/01/20 10:03) Itching Penicillins Allergy (Verified 10/17/16 23:08) Hives phenylephrine HCl [From Prolex D] Allergy (Verified 10/17/16 23:08) Hives quetiapine [From Seroquel] Allergy (Verified 12/31/22 03:18) Anaphylaxis cefepime Adverse Reaction (Severe, Verified 12/31/22 03:18) Anaphylaxis nitrofurantoin Adverse Reaction (Verified 08/07/17 23:41) liver failure Home Medications: Furosemide [Lasix*] 80 mg PO BID 09/30/20 Buspirone HCl [Buspar] 1 tab PO BID 08/22/21 Amlodipine [Norvasc*] 5 mg PO BID #60 tab 09/10/22 Aspirin Chewable [Aspirin Chewable*] 81 mg PO DAILY #30 tab.chew 09/10/22 Hydralazine HCl 50 mg PO TID #90 tab 09/10/22 Metoclopramide [Reglan*] 5 ml PO TID PRN #500 ml 01/01/23 Ascorbate Calcium [Vitamin C] 500 mg PO DAILY 04/14/23 Doxazosin [Cardura*] 2 mg PO BEDTIME 04/14/23 Losartan Potassium [Cozaar*] 50 mg PO BID 30 Days #60 tab 04/14/23 Pregabalin 50 mg PO DAILY 04/14/23 Silver Sulfadiazine Crm [Silvadene*] 1 appl TOP BID tube 04/14/23 atenoloL [Tenormin*] 25 mg PO BEDTIME 30 Days #30 tab 04/14/23 lamoTRIgine [Lamictal*] 25 mg PO Q48H tab 04/14/23 Loperamide [Imodium*] 2 mg PO Q4H PRN 5 Days #10 cap 06/12/23 Vitamin D [Drisdol*] 50,000 unit PO Q7D@0900 49 Days #7 cap 06/12/23 - Past Medical/Surgical History Diabetic: Yes -: Chronic Diastolic CHF -: ESRD on HD (Dr. Morin/ Dr. Yusuf) -: HTN -: DM II with CKD, Polyneuropathy, Gastroparesis -: Obesity -: Schizoaffective Disorder -: HTN -: Post Traumatic Stress Disorder -: Hypertension -: Post Traumatic Stress Disorder -: Schizoaffective disorder -: CHF, diastolic -: x 2 -: Tubal ligation -: Stents RUE, RLE & subclavian -: Right groin "aneurysm" -: RUE fistula for dialysis -: RUE fistula for dialysis Psychosocial/ Personal History: She is , she has 2 children, she does not work. She lives with her boyfriend and daughter. - Family History Mother -: Hypertension, Diabetes, Cancer, Other (see notes) Notes: hypothyroid, asthma, breast cancer Father -: Diabetes, Cancer Notes: - stomach/ lung/ prostate cancer, diabetes - Social History Alcohol use: No CD- Drugs: No Caffeine use: Yes Review of Systems General: Malaise Eyes: Unremarkable ENT: Unremarkable Respiratory: Unremarkable Cardiovascular: Unremarkable Gastrointestinal: Unremarkable Genitourinary: Unremarkable Musculoskeletal: Unremarkable Integumentary: Unremarkable Neurological: Unremarkable Lymphatics: Unremarkable Physical Examination - Physical Exam General: Alert, Oriented x3 HEENT: Atraumatic Neck: Supple Respiratory: Normal air movement Cardiovascular: Regular rate/rhythm, Normal S1 S2 Gastrointestinal: Tenderness Musculoskeletal: No swelling Neurological: Normal speech, Normal strength at 5/5 x4 extr - Studies Laboratory Data (last 24 hrs) 08/26/23 08/26/23 02:23 02:23 WBC 2.90 L Hgb 9.7 L Hct 29.4 L Plt Count 69 L Sodium 137 Potassium 2.9 L BUN 10 Creatinine 3.21 H Glucose 132 H Total Bilirubin 1.0 AST 30 ALT 13 Alkaline Phosphatase 166 H Lipase 27 Microbiology Data (last 24 hrs): 08/26/23 02:17 Nasopharnyx Influenza Type A Antigen Screen - Final 08/26/23 02:17 Nasopharnyx Influenza Type B Antigen Screen - Final Assessment and Plan - Plan Acute cholecystitis: Clinical symptomatology is concerning. Ultrasound of the abdomen done is confirmatory. Surgery has been consulted for management recommendation. She will be kept n.p.o. for possible surgical intervention. As needed pain control with Dilaudid started. ESRD: Management of dialysis needs as per resident service coordinator. Hypertension: Will monitor vital signs per unit protocol and continue antihypertensive medications. Hyperlipidemia: We will continue statin therapy. Anemia: Will monitor hemoglobin closely and continue Epogen therapy as per resident service coordinator recommendation Prophylaxis: Heparin for DVT prophylaxis CODE STATUS: Full code Disposition: We will treat acute cholecystitis episode and she will be discharged once cleared by surgical service. - Advance Directives Does patient have a Living Will: No Does patient have a Durable POA for Healthcare: Yes
[2023-08-26 04:40] LABS: Anisocytosis 1+; Blood Morphology Comment NOTED (NOT SEEN); Ovalocytes 2+; Platelet Estimate DECR; Polychromasia 1+; White Blood Cell Scan OK (OK)
[2023-08-26] MEDS: PIPER TAZO 2.25 GM in NA CHLORIDE 0.9% 50 ML IV SCH (06:00)
[2023-08-26] MEDS ORDERED: INFLUENZA VACCINE (for 6+ mo) 0.5 ML DOSE IMVAC ONE (08:00)
[2023-08-26] MEDS: AZTREONAM 1 GM in NA CHLORIDE 0.9% 100 ML IV SCH (08:30)
[2023-08-26] MEDS ORDERED: ACETAMINOPHEN 325 MG TABLET ONE (08:38)
[2023-08-26] MEDS ORDERED: NA CHLORIDE 0.9% 100 ML ONE (08:38)
[2023-08-26] MEDS ORDERED: AZTREONAM 1 GM/VIAL ONE (08:38)
[2023-08-26] MEDS: ACETAMINOPHEN 325 MG TABLET PO PRN (09:03)
[2023-08-26] MEDS ORDERED: HEPARIN 5000 UNIT/ML 1 ML VIAL ONE (09:14)
[2023-08-26] MEDS: HEPARIN 5000 UNIT/ML 1 ML VIAL SQ SCH (09:25)
[2023-08-26] MEDS: ERYTHROMYCIN 200 MG/5ML 100ML PO SCH (12:30)
--- NOTE | 2023-08-26 13:08 | RAD REPORT ---
EXAM DESCRIPTION: US - Abdomen Exam Limited - 08/26/2023 12:15 am CLINICAL HISTORY: The patient is 42 years old and is Female; ABD PAIN TECHNIQUE: Real-time ultrasound of the right upper quadrant with image documentation. COMPARISON: No relevant prior studies available. FINDINGS: Gallbladder: Cholelithiasis. There is gallbladder wall thickening. There is pericholecys tic fluid. Sonographic Garcia's sign is reportedly positive. Gallbladder wall measures up to 5 mm in thickness. Common bile duct: Common bile duct is at the upper limit of normal in diameter. No stones. IMPRESSION: Cholelithiasis. There is gallbladder wall thickening. There is pericholecystic fluid. So nographic Garcia's sign is reportedly positive. Electronically signed by: Yury Nobles MD 08/26/2023 12:47 AM CHANGE ROOM ATTENDANT Due to temporary technical issues with the PACS/Fluency reporting system, reports are being signed by the in house radiologists without review as a courtesy to insure prompt reporting. The interpreting radiologist is fully responsible for the content of the report.
[2023-08-26] MEDS: FENTANYL CITR 100 MCG/2 ML IV ONE (13:12)
[2023-08-26] MEDS: FUROSEMIDE 40 MG TABLET PO SCH (13:30)
[2023-08-26] MEDS ORDERED: FUROSEMIDE 40 MG TABLET ONE (13:34)
--- NOTE | 2023-08-26 13:48 | P.HP ---
Date of Service: 08/26/23 PC: This 42-year-old female presented to the emergency room with severe right upper quadrant abdominal pain radiating into her back, for diagnosis and treatment. HPC: Patient has been having right upper quadrant abdominal pain, nausea and generalized discomfort for the last few months. She has had occasion to visit the ER with this issue. She has documented gallstones. PSHx: Numerous vascular graft access procedures, no abdominal surgery [apart from 2 C-sections] PMHx: End-stage renal disease, diabetes, but apparently controlled now with diet Social Hx: Numerous allergies listed on the nursing notes Sys R: States that while she is been having health issues, she is actually doing fairly well this last 6 to 8 weeks. However this pain started again, and is one of the worst episode she has had. O/E: Awake alert but obviously uncomfortable. Vital signs are stable. HEENT: Patient lost her left years ago. Chest: Chest movement equal bilaterally Abd: Abdomen is soft, however does have significant right upper quadrant tenderness Superior: Numerous areas of vascular access right upper arm insert current use point Data: Documented gallstones Impression: Cholecystitis with cholelithiasis, biliary colic Plan: I will taken the operating room for laparoscopic cholecystectomy with a cholangiogram. The risks of this procedure have been discussed with both the patient and her mom. The possibility of bleeding, infection, injury to bile ducts and blood vessels were explained. The possible need for an open and or further surgeries and procedures was discussed. She understands and wants us to proceed. Dr. Morin is aware.
[2023-08-26] MEDS ORDERED: HYDROMORPHONE HCL 0.5 MG/0.5 ML INJ ONE (13:52)
[2023-08-26] MEDS: HYDROMORPHONE HCL 0.5 MG/0.5 ML INJ IV ONE (13:55)
[2023-08-26] MEDS: HYDRALAZINE HCL 25 MG TABLET PO SCH (13:59)
[2023-08-26] MEDS: BUSPIRONE HCL 15 MG TABLET PO SCH (13:59)
[2023-08-26] MEDS ORDERED: METOCLOPRAMIDE 10MG/10ML UCUP PO PRN (14:00)
--- NOTE | 2023-08-26 14:13 | EKG ---
Test Date: 2023-08-26 Test Time: 03:45:37 Caseworker Intake: JASMINA MEASUREMENT RESULTS: Intervals: Rate: 91 SD: 196 QRSD: 106 QT: 410 QTc: 504 [place]: P: 73 SD: 196 QRS: 50 T: 94 INTERPRETIVE STATEMENTS: Normal sinus rhythm Low voltage QRS Nonspecific ST and T wave abnormality Prolonged QT Abnormal ECG Compared to ECG 06/09/2023 07:28:38 Low QRS voltage now present ST (T wave) deviation now present T-wave abnormality no longer present Electronically Signed On 08-26-23 14:12:26 SERVICE MECHANIC by Maximilian Mcnally
[2023-08-26] MEDS: NA CHLORIDE 0.9% 500 ML ONE (14:28)
[2023-08-26] MEDS ORDERED: propofoL 200 MG/20 ML VIAL IV ONE (14:45)
[2023-08-26] MEDS ORDERED: MIDAZOLAM HCL 2 MG/2 ML INJ ONE (14:45)
[2023-08-26] MEDS ORDERED: ROCURONIUM 50 MG/5 ML VIAL IV ONE (14:45)
[2023-08-26] MEDS ORDERED: dexAMETHasone 4 MG/ML VIAL ONE (14:45)
[2023-08-26] MEDS ORDERED: ETOMIDATE 20 MG/10 ML VIAL IV ONE (14:45)
[2023-08-26] MEDS: PROTAMINE SULF 50 MG/5ML INJ IV ONE (14:50)
[2023-08-26] MEDS: SUGAMMADEX SODIUM 200 MG/2 ML VIAL IV ONE (14:55)
[2023-08-26] MEDS: HYDROMORPHONE HCL 1 MG/ML INJ ONE ×2 (14:57→17:37)
[2023-08-26] MEDS ORDERED: PROTAMINE SULF 50 MG/5ML INJ IV ONE (15:00)
[2023-08-26] MEDS ORDERED: HYDROMORPHONE HCL 0.5 MG/0.5 ML INJ IV PRN (17:18)
[2023-08-26] MEDS ORDERED: HYDRALAZINE HCL 20 MG/ML VIAL IV PRN (17:27)
--- NOTE | 2023-08-26 17:33 | P.PN ---
Subjective Date of Service: 08/26/23 Chief Complaint: Cholecystitis Pt complaining of abdominal pain, prn anaglesic added, npo for surg today family at bedside <Nelsy Reis - Last Filed: 08/26/23 17:40> Date of Service: 08/26/23 <Jose De Jesus Velásquez - Last Filed: 08/27/23 16:27> Review of Systems per HPI <Nelsy Reis - Last Filed: 08/26/23 17:40> Physical Examination - Vital Signs Temperature: 97.5 F Blood Pressure: 177/83 Pulse: 72 Respirations: 16 Pulse Ox (%): 94 - Physical Exam General: Alert, In no apparent distress, Oriented x3, Mild distress (facial grimace related pain) HEENT: Atraumatic, Normocephalic Neck: Supple, JVD not distended Respiratory: Clear to auscultation bilaterally, Normal air movement Cardiovascular: Normal pulses, Regular rate/rhythm Capillary refill: <2 Seconds Gastrointestinal: Tenderness (epigastric, RUE tenderness radiates to back) Musculoskeletal: No clubbing, No swelling Integumentary: No breakdown, No significant lesion Neurological: Normal speech, Normal strength at 5/5 x4 extr - Studies Laboratory Data (last 24 hrs) 08/26/23 08/26/23 02:23 02:23 WBC 2.90 L Hgb 9.7 L Hct 29.4 L Plt Count 69 L Sodium 137 Potassium 2.9 L BUN 10 Creatinine 3.21 H Glucose 132 H Total Bilirubin 1.0 AST 30 ALT 13 Alkaline Phosphatase 166 H Lipase 27 Microbiology Data (last 24 hrs): 08/26/23 02:17 Nasopharnyx Influenza Type A Antigen Screen - Final 08/26/23 02:17 Nasopharnyx Influenza Type B Antigen Screen - Final <Nelsy Reis - Last Filed: 08/26/23 17:40> - Studies Laboratory Data (last 24 hrs) 08/27/23 08/27/23 08/26/23 12:10 08:21 18:19 WBC 6.00 Hgb 8.8 L Hct 26.5 L Plt Count 61 L Sodium 137 138 Potassium 3.1 L 3.2 L BUN 10 13 Creatinine 3.16 H 4.09 H Glucose 92 93 Magnesium 1.7 <Jose De Jesus Velásquez - Last Filed: 08/27/23 16:27> Assessment And Plan - Plan Assessment and Plan - Plan Acute cholecystitis: Clinical symptomatology is concerning. Ultrasound of the abdomen done is confirmatory. Surgery has been consulted for management recommendation. She will be kept n.p.o. for possible surgical intervention. As needed pain control with Dilaudid started. 08/[address] ESRD: Management of dialysis needs as per tax accountant. Dr Morin consulted for HD in am Hypertension: Will monitor vital signs per unit protocol and continue antihypertensive medications. Hyperlipidemia: We will continue statin therapy. Anemia: Will monitor hemoglobin closely and continue Epogen therapy as per tax accountant recommendation Prophylaxis: Heparin for DVT prophylaxis CODE STATUS: Full code Disposition: We will treat acute cholecystitis episode and she will be discharged once cleared by surgical service. Discharge Plan: Home - Code Status/Comfort Care Code Status: Full Code Critical Care: No Time Spent Managing PTS Care (In Minutes): 35 <Nelsy Reis - Last Filed: 08/26/23 17:40> Date of Service: 08/26/23 Patient seen and examined. Patient scheduled for laparoscopic cholecystectomy. Patient will get dialyzed in the morning. Anticipate discharge in the morning. <Jose De Jesus Velásquez - Last Filed: 08/27/23 16:27>
--- NOTE | 2023-08-26 18:34 | RAD REPORT ---
EXAM DESCRIPTION: RAD - Fluoroscopy <1 Hour - 08/26/2023 5:36 pm CLINICAL HISTORY: [facility] COMPARISON: None available. FINDINGS: Three Images were sent to PACS, documenting fluoroscopy use during intraoperative cholangi ography. No radiologist was available for the procedure, nor will any image interpretation he provide d. Please refer to the procedural report for additional details. Fluoroscopy time: 0.6 Minutes. IMPRESSION: Documentation of fluoroscopy utilization as above.
--- NOTE | 2023-08-26 19:29 | RAD REPORT ---
EXAM DESCRIPTION: CT - Abdomen Pelvis Wo Contrast - 08/26/2023 3:45 am CLINICAL HISTORY: The patient is 42 years old and is Female; ABD PAIN TECHNIQUE: Axial computed tomography images of the abdomen and pelvis without intravenous contrast. Sagittal and coronal reformatted images were created and reviewed. This CT exam was performed usi ng one or more of the following dose reduction techniques: automated exposure control, adjustment o f the mA and/or kV according to patient size, and/or use of iterative reconstruction technique. DLP: 870 mGy*cm COMPARISON: CT abdomen and pelvis dated 03/08/2023. FINDINGS: LUNG BASES: Unremarkable. No mass. No consolidation. HEART: Cardiomegaly with small pericardial effusion. ABDOMEN: LIVER: Hepatic steatosis. GALLBLADDER AND BILE DUCTS: Cholelithiasis with gallbladder wall thickening, pericholecystic fluid and intrahepatic ductal dilatation. PANCREAS: Unremarkable. No ductal dilation. SPLEEN: Unremarkable. No splenomegaly. ADRENALS: Unremarkable. No mass. KIDNEYS AND URETERS: Bilateral renal atrophy. No obstructing stones. No hydronephrosis. STOMACH AND BOWEL: Unremarkable. No obstruction. No mucosal thickening. PELVIS: APPENDIX: No findings to suggest acute appendicitis. BLADDER: Bladder is decompressed. No stones. REPRODUCTIVE: Unremarkable as visualized. ABDOMEN and PELVIS: INTRAPERITONEAL SPACE: Unremarkable. No free air. No significant fluid collection. BONES/JOINTS: No acute fracture. No dislocation. SOFT TISSUES: Unremarkable. VASCULATURE: Advanced vascular calcifications. No abdominal aortic aneurysm. LYMPH NODES: Unremarkable. No enlarged lymph nodes. IMPRESSION: 1. Cholelithiasis with gallbladder wall thickening, pericholecystic fluid and intrahep atic ductal dilatation. Findings concerning for acute cholecystitis. Right upper quadrant ultrasoun d may be of diagnostic use. 2. Hepatic steatosis. Electronically signed by: Raul Fallon DO 08/25/2023 11:32 PM QUALITY CONTROL LAB TECHNICIAN Due to temporary technical issues with the PACS/Fluency reporting system, reports are being signed by the in house radiologists without review as a courtesy to insure prompt reporting. The interpreting radiologist is fully responsible for the content of the report.
[2023-08-26 19:52] LABS: Anion Gap 10.2 mEq/L (5.0-15.0); Potassium 3.2 mEq/L (3.5-5.1)
[2023-08-26] MEDS: ONDANSETRON 4 MG/2 ML VIAL IV PRN (20:05)
[2023-08-26] MEDS: AMLODIPINE 5 MG TAB PO SCH (21:00)
[2023-08-26] MEDS: DOXAZOSIN 2 MG TAB PO SCH (21:00)
--- NOTE | 2023-08-26 21:06 | P.CNS ---
Date of Consult: 08/26/23 Reason for Consult: ESRD Requesting Physician: Jose De Jesus Velásquez Chief Complaint: Cholecystitis History of Present Illness: 42-year-old female patient with medical history significant for ESRD on dialysis, hypertension, hyperlipidemia was evaluated for episode of abdominal pain. Pain is reported to have started acutely and imaging studies done in the ED was significantly concerning for cholecystitis. She was admitted for surgeon evaluation for possible cholecystectomy. Her underwriting intern was consulted for management of dialysis needs while admitted. [id number] 22:20 This 42 yrs old Female presents to ER via Unassigned with complaints of sp4 Abdominal Pain, Vomiting. 08/25 02:07 82-year-old female past medical history CHF chronic kidney disease diabetes sp4 dialysis Wednesday encephalopathy gastroparesis hypertension history of peripheral neuropathy and seizures, presents to emergency room with acute onset of abdominal pain nausea vomiting. Patient's medications include furosemide, buspirone, amlodipine, aspirin, hydralazine, Reglan, calcium, doxazosin, losartan, pregabalin, atenolol, Lamictal, loperamide, vitamin D. Allergies zolpidem tartrate [From Ambien] Allergy (Intermediate, Verified 10/17/16 23:08) Itching/Hives/Rash codeine [Codeine] Allergy (Verified 10/17/16 23:08) Hives fentanyl Allergy (Verified 08/26/23 13:43) Itching fluphenazine enanthate [From Prolixin] Allergy (Verified 10/17/16 23:08) ARM NUMBNESS fluphenazine HCl [From Prolixin] Allergy (Verified 10/17/16 23:08) ARM NUMBNESS guaifenesin [From Prolex D] Allergy (Verified 10/17/16 23:08) Hives lisinopril Allergy (Verified 04/21/17 10:26) Anaphylaxis morphine Allergy (Verified 10/01/20 10:03) Itching Penicillins Allergy (Verified 10/17/16 23:08) Hives phenylephrine HCl [From Prolex D] Allergy (Verified 10/17/16 23:08) Hives quetiapine [From Seroquel] Allergy (Verified 12/31/22 03:18) Anaphylaxis cefepime Adverse Reaction (Severe, Verified 12/31/22 03:18) Anaphylaxis nitrofurantoin Adverse Reaction (Verified 08/07/17 23:41) liver failure Home medications list reviewed: Yes Home Medications: Furosemide [Lasix*] 80 mg PO BID 09/30/20 Buspirone HCl [Buspar] 1 tab PO BID 08/22/21 Amlodipine [Norvasc*] 5 mg PO BID #60 tab 09/10/22 Aspirin Chewable [Aspirin Chewable*] 81 mg PO DAILY #30 tab.chew 09/10/22 Hydralazine HCl 50 mg PO TID #90 tab 09/10/22 Metoclopramide [Reglan*] 5 ml PO TID PRN #500 ml 01/01/23 Ascorbate Calcium [Vitamin C] 500 mg PO DAILY 04/14/23 Doxazosin [Cardura*] 2 mg PO BEDTIME 04/14/23 Losartan Potassium [Cozaar*] 50 mg PO BID 30 Days #60 tab 04/14/23 Pregabalin 50 mg PO DAILY 04/14/23 Silver Sulfadiazine Crm [Silvadene*] 1 appl TOP BID tube 04/14/23 atenoloL [Tenormin*] 25 mg PO BEDTIME 30 Days #30 tab 04/14/23 lamoTRIgine [Lamictal*] 25 mg PO Q48H tab 04/14/23 Loperamide [Imodium*] 2 mg PO Q4H PRN 5 Days #10 cap 06/12/23 Vitamin D [Drisdol*] 50,000 unit PO Q7D@0900 49 Days #7 cap 06/12/23 - Past Medical/Surgical History Diabetic: Yes -: Chronic Diastolic CHF -: ESRD on HD (Dr. Morin/ Dr. Yusuf) -: HTN -: DM II with CKD, Polyneuropathy, Gastroparesis -: Obesity -: Schizoaffective Disorder -: HTN -: Post Traumatic Stress Disorder -: Hypertension -: Post Traumatic Stress Disorder -: Schizoaffective disorder -: CHF, diastolic -: x 2 -: Tubal ligation -: Stents RUE, RLE & subclavian -: Right groin "aneurysm" -: RUE fistula for dialysis -: RUE fistula for dialysis Psychosocial/ Personal History: She is , she has 2 children, she does not work. She lives with her boyfriend and daughter. - Family History Mother Medical History: Hypertension, Diabetes, Cancer, Other (see notes) Notes: hypothyroid, asthma, breast cancer Father Medical History: Diabetes, Cancer Notes: - stomach/ lung/ prostate cancer, diabetes - Social History Smoking Status: Current every day smoker Alcohol use: No CD- Drugs: No Caffeine use: Yes Place of Residence: Home Review of Systems 10-point ROS is otherwise unremarkable Gastrointestinal: Nausea, Abdominal Pain Physical Examination Temp Pulse Resp BP Pulse Ox 97.5 F 71 19 179/72 H 94 08/26/23 17:41 08/26/23 17:52 08/26/23 17:52 08/26/23 17:52 08/26/23 17:41 General: Oriented x3, Cooperative, Mild distress HEENT: Atraumatic Neck: Supple Respiratory: Normal air movement Cardiovascular: Regular rate/rhythm, Edema Gastrointestinal: Non-distended, Tenderness Musculoskeletal: No clubbing, No contractures Integumentary: No rashes, No cyanosis Neurological: Normal speech Laboratory Data (last 24 hrs) 08/26/23 08/26/23 02:23 02:23 WBC 2.90 L Hgb 9.7 L Hct 29.4 L Plt Count 69 L Sodium 137 Potassium 2.9 L BUN 10 Creatinine 3.21 H Glucose 132 H Total Bilirubin 1.0 AST 30 ALT 13 Alkaline Phosphatase 166 H Lipase 27 Imagings Data: [id number] EXAM DESCRIPTION: CT - Abdomen Pelvis Wo Contrast - 08/26/2023 3:45 am CLINICAL HISTORY: The patient is 42 years old and is Female; ABD PAIN TECHNIQUE: Axial computed tomography images of the abdomen and pelvis without intravenous contrast. Sagittal and coronal reformatted images were created and reviewed. This CT exam was performed using one or more of the following dose reduction techniques: automated exposure control, adjustment of the mA and/or kV according to patient size, and/or use of iterative reconstruction technique. DLP: 870 mGy*cm COMPARISON: CT abdomen and pelvis dated 03/08/2023. FINDINGS: LUNG BASES: Unremarkable. No mass. No consolidation. HEART: Cardiomegaly with small pericardial effusion. ABDOMEN: LIVER: Hepatic steatosis. GALLBLADDER AND BILE DUCTS: Cholelithiasis with gallbladder wall thickening, pericholecystic fluid and intrahepatic ductal dilatation. PANCREAS: Unremarkable. No ductal dilation. SPLEEN: Unremarkable. No splenomegaly. ADRENALS: Unremarkable. No mass. KIDNEYS AND URETERS: Bilateral renal atrophy. No obstructing stones. No hydronephrosis. STOMACH AND BOWEL: Unremarkable. No obstruction. No mucosal thickening. PELVIS: APPENDIX: No findings to suggest acute appendicitis. BLADDER: Bladder is decompressed. No stones. REPRODUCTIVE: Unremarkable as visualized. ABDOMEN and PELVIS: INTRAPERITONEAL SPACE: Unremarkable. No free air. No significant fluid collection. BONES/JOINTS: No acute fracture. No dislocation. SOFT TISSUES: Unremarkable. VASCULATURE: Advanced vascular calcifications. No abdominal aortic aneurysm. LYMPH NODES: Unremarkable. No enlarged lymph nodes. IMPRESSION: 1. Cholelithiasis with gallbladder wall thickening, pericholecystic fluid and intrahepatic ductal dilatation. Findings concerning for acute cholecystitis. Right upper quadrant ultrasound may be of diagnostic use. 2. Hepatic steatosis. Conclusions/Impression: ESRD on HD MWF -HD TIW Hypokalemia -Replete as ordered HTN with CKD/ CHF -Continue Amlodipine -Continue Hydralazine Diastolic CHF, chronic Peripheral Edema -HD with UF DM II with CKD, Polyneuropathy, Gastroparesis -RISS -Continue Lyrica -Reglan prn Anemia in CKD Pancytopenia -Monitor CBC CKD MBD -Hold phosphate binders at this time Cholecystitis -Surgery consult Case reviewed with Dr. Velásquez and Dr. Tate Thank you kindly for the consultation
[2023-08-26] MEDS ORDERED: MANNITOL 25% 12.5 GM/50 ML VIAL IV PRN (21:41)
[2023-08-26] MEDS ORDERED: NA CHLORIDE 0.9% 1,000 ML IV PRN (21:41)
[2023-08-26] MEDS ORDERED: D50W 25 GM/50 ML SYRINGE IV PRN (21:43)
[2023-08-26] MEDS: D10W 125 ML IV PRN (22:00)
[2023-08-26] MEDS ORDERED: ALBUMIN HUMAN 25% 50 ML IV SCH (22:00)
[2023-08-26] MEDS: PROMETHAZINE INJ 25 MG/ML AMP IV PRN (22:08)
[2023-08-26] MEDS: PIPER TAZO 3.375 GM in NA CHLORIDE 0.9% 100 ML IV SCH (22:16)
--- NOTE | 2023-08-27 08:30 | P.PN ---
Subjective Date of Service: 08/27/23 Chief Complaint: Cholecystitis Pain controlled with as needed analgesia, status post lap clint plan for hemodialysis today family at bedside Physical Exam General: Alert, Oriented x3 HEENT: Atraumatic Neck: Supple Respiratory: Diminished, equal unlabored, productive Cardiovascular: Regular rate/rhythm, Normal S1 S2 Gastrointestinal: Abdominal tenderness post lap clint Musculoskeletal: No swelling Neurological: Normal speech, Normal strength at 5/5 x4 extr <Nelsy Reis - Last Filed: 08/27/23 08:27> Date of Service: 08/27/23 <Jose De Jesus Velásquez - Last Filed: 08/27/23 16:29> Review of Systems Per HPI <Nelsy Reis - Last Filed: 08/27/23 08:27> Physical Examination - Vital Signs Temperature: 98.9 F Blood Pressure: 204/90 Pulse: 99 Respirations: 16 Pulse Ox (%): 97 - Studies Microbiology Data (last 24 hrs): 08/26/23 02:17 Nasopharnyx Influenza Type A Antigen Screen - Final 08/26/23 02:17 Nasopharnyx Influenza Type B Antigen Screen - Final <Nelsy Reis - Last Filed: 08/27/23 08:27> - Studies Laboratory Data (last 24 hrs) 08/27/23 08/27/23 08/26/23 12:10 08:21 18:19 WBC 6.00 Hgb 8.8 L Hct 26.5 L Plt Count 61 L Sodium 137 138 Potassium 3.1 L 3.2 L BUN 10 13 Creatinine 3.16 H 4.09 H Glucose 92 93 Magnesium 1.7 <Jose De Jesus Velásquez - Last Filed: 08/27/23 16:29> Assessment And Plan - Plan Assessment and Plan - Plan Acute cholecystitis: Clinical symptomatology is concerning. Ultrasound of the abdomen done is confirmatory. Surgery has been consulted for management recommendation. She will be kept n.p.o. for possible surgical intervention. As needed pain control with Dilaudid started. 08/25 SP angus jaramillo, AB mcraesylisa Tate ESRD: Management of dialysis needs as per landscape painter. Dr Morin consulted for HD Hypertension: Will monitor vital signs per unit protocol and continue antihypertensive medications. Hyperlipidemia: We will continue statin therapy. Anemia: Will monitor hemoglobin closely and continue Epogen therapy as per landscape painter recommendation Prophylaxis: Heparin for DVT prophylaxis CODE STATUS: Full code Disposition: We will treat acute cholecystitis episode and she will be discharged once cleared by surgical service. Discharge Plan: Home - Code Status/Comfort Care Code Status: Full Code Critical Care: No Time Spent Managing PTS Care (In Minutes): 35 <Nelsy Reis - Last Filed: 08/27/23 08:27> Date of Service: 08/27/23 Patient seen and examined. Patient is scheduled for dialysis today. Patient doing well postoperatively. Advance diet as tolerated and out of bed and a mbulate. Anticipate discharge once this is completed. <Jose De Jesus Velásquez - Last Filed: 08/27/23 16:29>
[2023-08-27 08:31] LABS: Absolute Eosinophils 0.1 K/uL (0-0.5); Absolute Lymphocytes (CBC) 1.4 K/uL (0.7-4.9); Absolute Monocytes 0.7 K/uL (0.1-1.3); Absolute Neutrophil 3.7 K/uL (1.8-8.0); Basophils % 0.6 % (0-1.3); Eosinophils % 1.3 % (0-4.4); Hematocrit 26.5 % (36.0-45.0); Hemoglobin 8.8 g/dL (12.0-15.0); Lymphocytes % 23.4 % (15.3-44.8); MCH 29.6 pg (27.0-35.0); MCHC 33.2 g/dL (32.0-36.0); MCV 89.1 fL (80-100); MPV 9.6 fL (7.6-11.3); Monocytes % 12.3 % (3.3-12.3); Neutrophils % 62.4 % (41.7-73.7); Nucleated Red Blood Cells % 0.6 % (0-0); Platelets 61 thou/uL (152-406); RBC Red Blood Cell Count 2.98 M/uL (3.86-4.86); Red Cell Distribution Width 19.3 % (12.1-15.2)
[2023-08-27 09:20] LABS: Differential Total Cells Count 100; Eosinophils 4 % (0-3); Lymphocytes 19 % (15-42); Metamyelocytes 1 % (0-0); Monocytes 11 % (0-10); Nucleated Red Blood Cells 1 /100WBC; Segmented Neutrophils 65 % (40-80)
[2023-08-27 09:21] LABS: Basophilic Stippling 1+; Blood Morphology Comment NOTED (NOT SEEN); Platelet Estimate DECR
[2023-08-27 09:22] LABS: Anisocytosis SLIGHT; Ovalocytes 1+; Polychromasia SLIGHT
[2023-08-27] MEDS: PREGABALIN 50 MG CAP PO SCH (09:26)
[2023-08-27] MEDS: EPOETIN ALFA 10,000 UNIT/ML VIAL IV SCH (12:45)
[2023-08-27 12:53] LABS: Anion Gap 10.1 mEq/L (5.0-15.0); Magnesium 1.7 mg/dL (1.6-2.4); Potassium 3.1 mEq/L (3.5-5.1)
--- NOTE | 2023-08-27 20:00 | P.PN ---
Date of Service: 08/27/23 Vital Signs Temp Pulse Resp BP Pulse Ox 99 F 102 H 16 151/80 H 97 08/27/23 16:00 08/27/23 16:00 08/27/23 16:00 08/27/23 16:00 08/27/23 16:00 Medications Acetaminophen (Acetaminophen 325 Mg Tablet) 650 mg PO Q4HP PRN PRN Reason: Pain scale 2-4 (Mild) Last Admin: 08/27/23 10:59 Dose: 650 mg Amlodipine Besylate (Amlodipine 5 Mg Tab) 5 mg PO BID [facility] Last Admin: 08/27/23 09:27 Dose: 5 mg Buspirone HCl (Buspirone Hcl 15 Mg Tablet) 15 mg PO BID [facility] Last Admin: 08/27/23 09:00 Dose: Not Given Doxazosin Mesylate (Doxazosin 2 Mg Tab) 2 mg PO BEDTIME [facility] Last Admin: 08/26/23 21:00 Dose: Not Given Epoetin Vasu (Epoetin Vasu 10,000 Unit/Ml Vial) 10,000 unit IV EVERY HD [facility] Last Admin: 08/27/23 12:45 Dose: 10,000 unit Furosemide (Furosemide 40 Mg Tablet) 80 mg PO BID [facility] Last Admin: 08/27/23 09:27 Dose: 80 mg Heparin Sodium (Porcine) (Heparin 5000 Unit/Ml 1 Ml Vial) 5,000 unit SQ Q8HR [facility] Last Admin: 08/27/23 17:00 Dose: Not Given Heparin Sodium (Porcine) (Heparin 1,000 Unit/Ml Vial) 6,000 unit IV EVERY HD PRN PRN Reason: AFTER EACH Last Admin: 08/27/23 13:00 Dose: 6,000 unit Hydralazine HCl (Hydralazine Hcl 25 Mg Tablet) 50 mg PO TID [facility] Last Admin: 08/27/23 15:51 Dose: 50 mg Hydralazine HCl (Hydralazine Hcl 20 Mg/Ml Vial) 10 mg IV Q4HP PRN PRN Reason: SBP>160 MMHG OR DBP>100 MMHG Aztreonam 1 gm/ Sodium (Chloride) 100 mls @ 100 mls/hr IV DAILY@1800 [facility] Last Admin: 08/26/23 08:30 Dose: 100 mls Albumin Human (Albumin 25%) 50 mls @ 100 mls/hr IV EVERY HD [facility] Dextrose (Dextrose 10% Water Iv Soln.) 125 mls @ 0 mls/hr IV PRN PRN; Protocol PRN Reason: HYPOGLYCEMIA Last Admin: 08/27/23 04:25 Dose: 125 mls Mannitol (Mannitol 25% 12.5 Gm/50 Ml Vial) 12.5 gm IV EVERY HD PRN PRN Reason: Titrate to SBP (MUST DEFINE) Metoclopramide HCl (Metoclopramide 10mg/10ml Ucup) 5 mg PO TID PRN PRN Reason: NAUSEA / VOMITING Ondansetron HCl (Ondansetron 4 Mg/2 Ml Vial) 4 mg IV Q6HP PRN PRN Reason: NAUSEA / VOMITING Last Admin: 08/27/23 09:26 Dose: 4 mg Pregabalin (Pregabalin 50 Mg Cap) 50 mg PO DAILY [facility] Last Admin: 08/27/23 09:26 Dose: 50 mg Lab Results (last 24 hrs) 08/27/23 14:52: POC Glucose 63 L 08/27/23 12:10: Sodium 137, Potassium 3.1 L, Chloride 103, Carbon Dioxide 27, Anion Gap 10.1, BUN 10, Creatinine 3.16 H, Est GFR (CKD-EPI) 18 L, Glucose 92, Calcium 8.3 L, Magnesium 1.7 08/27/23 11:11: POC Glucose 82 08/27/23 08:21: WBC 6.00, RBC 2.98 L, Hgb 8.8 L, Hct 26.5 L, MCV 89.1, MCH 29.6, MCHC 33.2, RDW 19.3 H, Plt Count 61 L, MPV 9.6, Neutrophils % 62.4, Lymphocytes % 23.4, Monocytes % 12.3, Eosinophils % 1.3, Basophils % 0.6, Absolute Neutrophils 3.7, Segmented Neutrophils 65, Absolute Lymphocytes 1.4, Lymphocytes 19, Monocytes 11 H, Absolute Monocytes 0.7, Eosinophils 4 H, Absolute Eosinophils 0.1, Absolute Basophils 0.0, Metamyelocytes 1 H, Nucleated RBCs 1, Platelet Estimate Decr, Polychromasia Slight, Basophilic Stippling 1+, Anisocytosis Slight, Ovalocytes 1+, Morphology Comment Noted 08/27/23 07:35: POC Glucose 92 08/27/23 06:14: POC Glucose 76 08/27/23 04:20: POC Glucose 60 L 08/26/23 23:01: POC Glucose 105 08/26/23 21:35: POC Glucose 65 08/26/23 20:41: POC Glucose 75 Microbiology Results 08/26/23 02:17 Nasopharnyx Influenza Type A Antigen Screen - Final 08/26/23 02:17 Nasopharnyx Influenza Type B Antigen Screen - Final Assessment/ Plan: Nephrology No dyspnea No chest pain Still with abdominal pain No acute events overnight Vitals, medications, blood work and imaging reviewed in the chart General: Oriented x3, Cooperative, Mild distress HEENT: Atraumatic Neck: Supple Respiratory: Normal air movement Cardiovascular: Regular rate/rhythm, Edema Gastrointestinal: Non-distended, Tenderness Musculoskeletal: No clubbing, No contractures Integumentary: No rashes, No cyanosis Neurological: Normal speech Laboratory Data (last 24 hrs) 08/26/23 08/26/23 02:23 02:23 WBC 2.90 L Hgb 9.7 L Hct 29.4 L Plt Count 69 L Sodium 137 Potassium 2.9 L BUN 10 Creatinine 3.21 H Glucose 132 H Total Bilirubin 1.0 AST 30 ALT 13 Alkaline Phosphatase 166 H Lipase 27 Imagings Data: [id number] EXAM DESCRIPTION: CT - Abdomen Pelvis Wo Contrast - 08/26/2023 3:45 am CLINICAL HISTORY: The patient is 42 years old and is Female; ABD PAIN TECHNIQUE: Axial computed tomography images of the abdomen and pelvis without intravenous contrast. Sagittal and coronal reformatted images were created and reviewed. This CT exam was performed using one or more of the following dose reduction techniques: automated exposure control, adjustment of the mA and/or kV according to patient size, and/or use of iterative reconstruction technique. DLP: 870 mGy*cm COMPARISON: CT abdomen and pelvis dated 03/08/2023. FINDINGS: LUNG BASES: Unremarkable. No mass. No consolidation. HEART: Cardiomegaly with small pericardial effusion. ABDOMEN: LIVER: Hepatic steatosis. GALLBLADDER AND BILE DUCTS: Cholelithiasis with gallbladder wall thickening, pericholecystic fluid and intrahepatic ductal dilatation. PANCREAS: Unremarkable. No ductal dilation. SPLEEN: Unremarkable. No splenomegaly. ADRENALS: Unremarkable. No mass. KIDNEYS AND URETERS: Bilateral renal atrophy. No obstructing stones. No hydronephrosis. STOMACH AND BOWEL: Unremarkable. No obstruction. No mucosal thickening. PELVIS: APPENDIX: No findings to suggest acute appendicitis. BLADDER: Bladder is decompressed. No stones. REPRODUCTIVE: Unremarkable as visualized. ABDOMEN and PELVIS: INTRAPERITONEAL SPACE: Unremarkable. No free air. No significant fluid collection. BONES/JOINTS: No acute fracture. No dislocation. SOFT TISSUES: Unremarkable. VASCULATURE: Advanced vascular calcifications. No abdominal aortic aneurysm. LYMPH NODES: Unremarkable. No enlarged lymph nodes. IMPRESSION: 1. Cholelithiasis with gallbladder wall thickening, pericholecystic fluid and intrahepatic ductal dilatation. Findings concerning for acute cholecystitis. Right upper quadrant ultrasound may be of diagnostic use. 2. Hepatic steatosis. Conclusions/Impression: ESRD on HD MWF -HD TIW -Seen and examined on HD Hypokalemia -Replete prn HTN with CKD/ CHF -Continue Amlodipine -Continue Hydralazine Diastolic CHF, chronic Peripheral Edema -HD with UF DM II with CKD, Polyneuropathy, Gastroparesis -RISS -Continue Lyrica -Reglan prn Anemia in CKD Pancytopenia -Monitor CBC CKD MBD -Hold phosphate binders at this time Cholecystitis sp cholecystectomy -Surgery following Case reviewed with Dr. Velásquez
[2023-08-28] MEDS: HYDRALAZINE HCL 20 MG/ML VIAL IV PRN (04:36)
[2023-08-28] MEDS: METOPROLOL TAR 50 MG TAB PO SCH (06:23)
[2023-08-28 06:49] VITALS: BMI 32.3
--- NOTE | 2023-08-28 07:06 | P.PN ---
Subjective Date of Service: 08/28/23 Chief Complaint: Cholecystitis Lethargic this a.m., 0.2 mg of Narcan given, patient was a CODE BLUE, was intubated, transferred to ICU on ventilator status post lap clint , family at bedside Physical Exam General: Lethargic HEENT: Atraumatic, intubated after code Neck: Supple Respiratory: Hypoxic, diminished, equal unlabored, Cardiovascular: Hypotensive regular rate/rhythm, Normal S1 S2 Gastrointestinal: Abdominal tenderness post lap clint Musculoskeletal: No swelling Neurological: Unresponsive after code <Nelsy Reis - Last Filed: 08/28/23 15:34> Date of Service: 08/29/23 <Endy Yost - Last Filed: 08/29/23 07:57> Review of Systems Per HPI <Nelsy Reis - Last Filed: 08/28/23 15:34> Physical Examination - Vital Signs Temperature: 98.1 F Blood Pressure: 168/79 Pulse: 98 Respirations: 19 Pulse Ox (%): 93 - Studies Laboratory Data (last 24 hrs) 08/27/23 08/27/23 12:10 08:21 WBC 6.00 Hgb 8.8 L Hct 26.5 L Plt Count 61 L Sodium 137 Potassium 3.1 L BUN 10 Creatinine 3.16 H Glucose 92 Magnesium 1.7 <SmileyNelsy - Last Filed: 08/28/23 15:34> Assessment And Plan - Plan Assessment and Plan Acute hypoxic respiratory failure acute Intubated, Dr. Roblero following ABG ordered Hypertensive acute Bradycardic Epi drip, as needed atropine CODE STATUS changed to comfort care Acute cholecystitis: Acute Clinical symptomatology is concerning. Ultrasound of the abdomen done is confirmatory. Surgery has been consulted for management recommendation. She will be kept n.p.o. for possible surgical intervention. As needed pain control with Dilaudid started. 08/25 SP angus jaramillo, IV thorsylisa Tate ESRD: Chronic Management of dialysis needs as per fiber optics engineer. Dr Morin consulted for HD Hypertension: Will monitor vital signs per unit protocol and continue antihypertensive medications. Hyperlipidemia: We will continue statin therapy. Anemia: Will monitor hemoglobin closely and continue Epogen therapy as per fiber optics engineer recommendation Prophylaxis: Heparin for DVT prophylaxis CODE STATUS: CODE STATUS changed to comfort measures Disposition: We will treat acute cholecystitis episode and she will be discharged once cleared by surgical service. - Code Status/Comfort Care Comfort Measures: Palliative Care Critical Care: Yes Time Spent Managing PTS Care (In Minutes): 65 <Nelsy Reis - Last Filed: 08/28/23 15:34> Physician Review Additional Text: 08/29/23 07:54 Patient went into cardiopulmonary arrest was coded on the floor subsequently transferred to the ICU where she was coded multiple times chest x-ray did not show any evidence of pneumothorax endotracheal tube position was adjusted telephone exchange operator also present at the bedside bedside echocardiogram did not show any evidence of tamponade right ventricular dilatation cardiac function seem to be normal according to the telephone exchange operator EKG was also normal. Patient did not recover despite following the protocol including multiple amps of epinephrine and bicarbonate 08/29/23 07:56 Laboratory data did not show any marked abnormality no evidence of hyperkalemia on further discussion with the mother they all agreed to withdraw her from the ventilator <Endy Yost - Last Filed: 08/29/23 07:57>
[2023-08-28 08:17] LABS: Anion Gap 10.9 mEq/L (5.0-15.0); Magnesium 1.8 mg/dL (1.6-2.4); Potassium 3.9 mEq/L (3.5-5.1)
[2023-08-28 08:30] LABS: Absolute Basophils 0.1 K/uL (0-0.5); Absolute Eosinophils 0.1 K/uL (0-0.5); Absolute Lymphocytes (CBC) 1.9 K/uL (0.7-4.9); Absolute Monocytes 1.1 K/uL (0.1-1.3); Absolute Neutrophil 5.8 K/uL (1.8-8.0); Eosinophils % 0.9 % (0-4.4); Hematocrit 27.3 % (36.0-45.0); Hemoglobin 9.1 g/dL (12.0-15.0); MCH 29.1 pg (27.0-35.0); MCHC 33.4 g/dL (32.0-36.0); MPV 9.8 fL (7.6-11.3); Monocytes % 12.7 % (3.3-12.3); Neutrophils % 64.4 % (41.7-73.7); Nucleated Red Blood Cells % 0.1 % (0-0); Platelets 63 thou/uL (152-406); RBC Red Blood Cell Count 3.13 M/uL (3.86-4.86)
[2023-08-28 08:49] LABS: Hepatitis B Surface Ab - Quant > 1000.00 mIU/mL (<8.0); Hepatitis B surface AG Interp. Nonreactive (Nonreactive)
[2023-08-28 08:50] LABS: HBsAG Nonreactive Report Report
[2023-08-28] MEDS ORDERED: levoFLOXacin 250 MG TAB PO SCH (09:00)
[2023-08-28] MEDS: NALOXONE HCL 2 MG/2 ML VIAL IV ONE (09:15)
[2023-08-28] MEDS ORDERED: Levofloxacin 750mg IV 750 MG/150 ML BAG IV ONE (11:00)
[2023-08-28] MEDS: Levofloxacin 750mg IV 750 MG/150 ML BAG IV ONE (11:30)
--- NOTE | 2023-08-28 12:11 | PN ---
Subjective: The patient is seen in room 412 at [facility]. The patient is a somewhat let hargic, but easily arousable. She is able to tell me that her name is Cathi Found, is able to tell me that she is in the hospital, but she does seem sleepy. Objective: Pulmonary: Lung sounds are clear. Heart: Sounds are regular. Abdomen: With some discomfort as expected. The patient is status post cholecystectomy. Extremities: Reveal no edema. Assessment/plan: End-stage renal disease. Labs seem stable. No acute need for dialysis. Continue to monitor closely. Discharge planning as per surgery team. We will plan on dialysis 3 times a week while patient is in a hospital. Last dialysis done on Wednesday. No need for acute dialysis today. /JOSEFINA Voice ID: [id number] Report ID: [id number]
[2023-08-28] MEDS ORDERED: EPINEPHRINE 1 MG/ML VIAL IV ONE (12:53)
[2023-08-28 13:08] LABS: Absolute Basophils 0.1 K/uL (0-0.5); Absolute Eosinophils 0.1 K/uL (0-0.5); Absolute Lymphocytes (CBC) 4.2 K/uL (0.7-4.9); Absolute Monocytes 0.6 K/uL (0.1-1.3); Absolute Neutrophil 7.6 K/uL (1.8-8.0); Basophils % 0.4 % (0-1.3); Eosinophils % 0.8 % (0-4.4); Hematocrit 28.8 % (36.0-45.0); Hemoglobin 9.1 g/dL (12.0-15.0); Lymphocytes % 33.3 % (15.3-44.8); MCHC 31.5 g/dL (32.0-36.0); MPV 9.5 fL (7.6-11.3); Monocytes % 4.5 % (3.3-12.3); Nucleated RBC Absolute Count 0.1 (0-0); Nucleated Red Blood Cells % 0.4 % (0-0); Platelets 86 thou/uL (152-406); RBC Red Blood Cell Count 3.13 M/uL (3.86-4.86); Red Cell Distribution Width 20.7 % (12.1-15.2)
--- NOTE | 2023-08-28 13:10 | RAD REPORT ---
EXAM DESCRIPTION: RAD - Chest Single View - 08/28/2023 1:01 pm CLINICAL HISTORY: code blue COMPARISON: Chest Single View dated 08/28/2023; Chest Single View dated 08/28/2023; Chest Single View da rohit 06/09/2023; Chest Single View dated 04/13/2023; Abdomen Pelvis Wo Contrast dated 08/25/2023 FINDINGS: Lines: Endotracheal tube at the aortic arch in satisfactory position. Enteric tube in the stomach. Defibrillator pad overlies the chest . Lungs: Bilateral interstitial airspace disease, eccentric to the right upper lobe. . Defibrillator pa d obscures portions of the left hemithorax. Pleural: No significant pleural effusions or pneumothorax. Cardiac: Cardiomegaly. Mediastinum: Within normal limits. Bones: No acute fractures. Other: None IMPRESSION: 1. Bilateral interstitial and airspace disease could reflect edema and/or aspiration. 2. Support apparatus in satisfactory position.
--- NOTE | 2023-08-28 13:12 | RAD REPORT ---
EXAM DESCRIPTION: RAD - Chest Single View - 08/28/2023 1:01 pm CLINICAL HISTORY: CODE BLUE #2 COMPARISON: Chest Single View dated 08/28/2023; Chest Single View dated 06/09/2023; Chest Single View dated 04/13/2023; Chest Single View dated 09/06/2022; Chest Single View dated 08/28/2023 FINDINGS: Endotracheal tube at the martina but needing to be retracted. Reference subsequent chest ra diograph where it was subsequently repositioned. Enteric tube. IMPRESSION: Reference subsequent chest radiograph related to support apparatus positioning and airsp geraldo disease.
[2023-08-28 13:13] LABS: Protime INR 2.04
--- NOTE | 2023-08-28 13:13 | RAD REPORT ---
EXAM DESCRIPTION: RAD - Chest Single View - 08/28/2023 1:01 pm CLINICAL HISTORY: CODE BLUE COMPARISON: Chest Single View dated 06/09/2023; Chest Single View dated 04/13/2023; Chest Single Vie w dated 09/06/2022; Chest Single View dated 09/03/2022; Chest Single View dated 08/28/2023 FINDINGS: Endotracheal tube in the right mainstem bronchus. Reference the chest radiograph from 1246 pm for full findings. IMPRESSION: Reference subsequent chest radiograph at 1246 for most updated support apparatus positio talon and lung findings.
[2023-08-28 13:30] LABS: Albumin 2.1 g/dL (3.4-5.0); Albumin/Globulin Ratio 0.7 (1.1-1.8); Anion Gap 16.5 mEq/L (5.0-15.0); Bilirubin Total 0.8 mg/dL (0.2-1.0); Globulin 2.9 g/dL (2.3-3.5); Potassium 3.5 mEq/L (3.5-5.1)
[2023-08-28 14:31] VITALS: O2SAT 84
[2023-08-28] MEDS ORDERED: ATROPINE SULF 1 MG/10 ML SYR IV ONE ×2 (14:41→17:59)
[2023-08-28] MEDS ORDERED: EPINEPHRINE/PF 1 MG/ML AMP IV ONE (14:41)
[2023-08-28 15:50] VITALS: BP 168/79; TEMP 98.1
[2023-08-28] MEDS ORDERED: EPINEPHrine 1 MG/10 ML SYR IV ONE ×2 (17:59)
[2023-08-28] MEDS ORDERED: Calcium Chloride 10% INJ SYR IV ONE ×2 (17:59)
[2023-08-30] MEDS ORDERED: Levofloxacin500mg IV 500 MG/100 ML BAG IV SCH (09:00)
--- NOTE | 2023-09-03 17:49 | EKG ---
Test Date: 2023-08-28 Test Time: 12:22:50 Clearance Coordinator: NUHA MEASUREMENT RESULTS: Intervals: Rate: 96 ND: 164 QRSD: 98 QT: 340 QTc: 429 [place]: P: 63 ND: 164 QRS: 54 T: 91 INTERPRETIVE STATEMENTS: Normal sinus rhythm Normal ECG Compared to ECG 08/26/2023 03:45:37 ST (T wave) deviation no longer present Prolonged QT interval no longer present Electronically Signed On 09-03-23 17:31:14 CDT by Maximilian Mcnally
== END 2023-08-28 18:00 | disposition expired | DRG 417 ==
LOC: ER 22:16 → ERHOLD 08-26 03:29 → 4TH 08-26 15:13 → OBSVTOIN 08-27 15:57 → 3RD-ICU 08-28 13:02
PROVIDERS: ADMIT Internal Medicine Nephrology; ATTEND Hospitalist
PROC: 0FT44ZZ Resection of Gallbladder, Percutaneous Endoscopic Approach (ICD-10-PCS; 2023-08-26)
PROC: BF121ZZ Fluoroscopy of Gallbladder using Low Osmolar Contrast (ICD-10-PCS; 2023-08-26)
PROC: 5A1D70Z Performance of Urinary Filtration, Intermittent, Less than 6 Hours Per Day (ICD-10-PCS; 2023-08-27)
PROC: 5A1935Z Respiratory Ventilation, Less than 24 Consecutive Hours (ICD-10-PCS; principal; 2023-08-28)
PROC: 0BH17EZ Insertion of Endotracheal Airway into Trachea, Via Natural or Artificial Opening (ICD-10-PCS; 2023-08-28)
PROC: 4A033R1 Measurement of Arterial Saturation, Peripheral, Percutaneous Approach (ICD-10-PCS; 2023-08-28)
PROC: 5A12012 Performance of Cardiac Output, Single, Manual (ICD-10-PCS; 2023-08-28)
PROC: 0T9B70Z Drainage of Bladder with Drainage Device, Via Natural or Artificial Opening (ICD-10-PCS; 2023-08-28)
DX: K80.66 Calculus of gallbladder and bile duct with acute and chronic cholecystitis without obstruction (principal); J96.01 Acute respiratory failure with hypoxia; N18.6 End stage renal disease; I50.32 Chronic diastolic (congestive) heart failure; I13.2 Hypertensive heart and chronic kidney disease with heart failure and with stage 5 chronic kidney disease, or end stage renal disease; D61.818 Other pancytopenia; E11.22 Type 2 diabetes mellitus with diabetic chronic kidney disease; E11.42 Type 2 diabetes mellitus with diabetic polyneuropathy; D63.1 Anemia in chronic kidney disease; E87.6 Hypokalemia; I46.9 Cardiac arrest, cause unspecified; E78.5 Hyperlipidemia, unspecified; F17.210 Nicotine dependence, cigarettes, uncomplicated; Z99.2 Dependence on renal dialysis; Z88.5 Allergy status to narcotic agent; Z88.8 Allergy status to other drugs, medicaments and biological substances; Z88.0 Allergy status to penicillin; Z63.5 Disruption of family by separation and divorce; Z95.5 Presence of coronary angioplasty implant and graft; Z79.82 Long term (current) use of aspirin; Z98.51 Tubal ligation status; Z11.52 Encounter for screening for COVID-19; Z90.01 Acquired absence of eye; Z79.899 Other long term (current) drug therapy
CPT/HCPCS: 36415; 36600; 71045; 74176; 76000; 76705; 80048; 80053; 82140; 82947; 83605; 83690; 83735; 84484; 84703; 85025; 85610; 86706; 87340; 87804; 87811; 88304; 92950; 93005; 94002; 96374; 96375; 97112; 97161; 99285; G0378; J0171; J0360; J0461; J0696; J1100; J1170; J1200; J1644; J2250; J2310; J2405; J2543; J2550; J2704; J2720; J2765; J3010; J7040; J7060; Q4081